=== PATIENT | female | born 1960 | race Caucasian/White ===

== ENCOUNTER 2023-06-10 01:38 | Observation (INO) | payer MEDICARE, SELFPAY ==
[2023-06-10] VITALS (119 sets, daily range): BP systolic 101–149; BP diastolic 60–108; PULSE 45–81; RESP 12–40; TEMP 36.4–36.9; O2SAT 20–99; BMI 22.8; BMI 25.2
--- NOTE | 2023-06-10 01:52 | ECG_ITS ---
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
--- NOTE | 2023-06-10 01:52 | XR_ITS ---
The [address] [address] Patient Name: EMERY JETT MRN: [id number] date: 1960 Sex: F Assigned Patient Location: ER Current Patient Location: ED.MAIN Accession/Order Number: [id number] Exam Date: 06/10/2023 02:10 Report Date: 06/10/2023 03:21 At the request of: CORA BROTHERS Procedure: XR chest 1V SINGLE VIEW CHEST: 06/10/2023 2:10 AM EST CLINICAL HISTORY:shortness of breath COMPARISONS: None. TECHNIQUE: Single frontal view of the chest, utilizing portable technique. Portable radiography should be considered a technically compromised study. Strongly consider dedicated PA and lateral chest radiographs, as clinically indicated. FINDINGS: LINES AND TUBES: External metallic densities from patient clothing project over the hemithoraces. CARDIAC SILHOUETTE: Within normal limits. MEDIASTINAL AND HILAR CONTOUR: Within normal limits. PULMONARY PARENCHYMA AND PLEURA: Clear lungs. No consolidation, edema, effusion, or pneumothorax. OSSEOUS STRUCTURES:Nothing significant. OTHER COMMENTS:None. XR/XR chest 1V IMPRESSION: No acute findings. This report was generated with voice recognition software. Effort has been made to ensure accuracy of this report, however, occasional wording errors may persist. Please contact our office with any questions. Electronically authenticated by: DELLA SEE Date: 06/10/2023 03:21
--- NOTE | 2023-06-10 01:58 | ED_ITS ---
HPI - SOB/Dyspnea General Chief Complaint: Shortness of Breath/Dyspnea Stated Complaint: sob Time Seen by Provider: 06/10/23 01:52 Source: patient Mode of arrival: ambulance Limitations: no limitations History of Present Illness HPI Narrative: Patient with cough that started yesterday. Tonight she felt more shortness of breath. She is also anxious. She did not take her Xanax. She admitted to chest congestion and cough that occasionally produces phlegm but is mostly dry. No fever or chills. No GI or symptoms. Related Data Home Medications Medication Instructions Recorded Confirmed alprazolam 1 mg tablet 1 mg PO BID 06/10/23 06/10/23 aspirin 81 mg tablet,delayed 81 mg PO DAILY 06/10/23 06/10/23 release atorvastatin 80 mg tablet 80 mg PO DAILY 06/10/23 06/10/23 buspirone 10 mg tablet 10 mg PO BID 06/10/23 06/10/23 carvedilol 6.25 mg tablet 6.25 mg PO BIDWM 06/10/23 06/10/23 clopidogrel 75 mg tablet 75 mg PO DAILY 06/10/23 06/10/23 cyclobenzaprine 10 mg tablet 10 mg PO BID 06/10/23 06/10/23 dapagliflozin propanediol 10 mg 10 mg PO DAILY 06/10/23 06/10/23 tablet (Farxiga) gabapentin 300 mg capsule 300 mg PO TID 06/10/23 06/10/23 trazodone 50 mg tablet 50 mg PO DAILY 06/10/23 06/10/23 Allergies Allergy/AdvReac Type Severity Reaction Status Date / Time No Known Drug Allergies Allergy Verified 06/10/23 01:43 [facility] Social History Smoking status: Light tobacco smoker Exam Narrative Exam Narrative: Nurses notes and vital signs reviewed and patient is not hypoxic. afebrile General: Well-appearing and in no apparent distress. Skin: Warm, dry, no pallor noted. Head: Normocephalic, atraumatic. Eye: Pupils are equal, round and EOMI. No scleral icterus. Ears, Nose, Mouth, and Throat: Oral mucosa is moist Cardiovascular: Regular Rate and Rhythm without murmur, gallop or rub. Respiratory: No accessory muscle use or respiratory distress. Occasional cough. Lungs are clear to auscultation, no wheezing, rales or rhonchi Musculoskeletal: normal ROM, no calf or popliteal tenderness, no lower extremity edema/swelling GI: Abdomen is soft, non-distended. Normal bowel sounds. No tenderness to palpation. No rebound, guarding, or rigidity noted. Neurological: A&O x4. No cranial nerve dysfunction observed. No truncal ataxia. Moves all extremities. Sensation intact. Psychiatric: Cooperative and interactive. Normal mood and affect. Constitutional Vital Signs, click to edit/add: Last Vital Signs Pulse 71 06/10/23 03:20 Resp 23 06/10/23 03:20 BP 109/82 06/10/23 03:00 Pulse Ox 96 06/10/23 04:05 O2 Del Method Room Air 06/10/23 04:05 Course Vital Signs Vital signs: Vital Signs Pulse Rate 81 06/10/23 01:40 Respiratory Rate 18 06/10/23 01:40 Blood Pressure 149/108 H 06/10/23 01:40 Pulse Oximetry 93 L 06/10/23 01:40 Oxygen Delivery Method Room Air 06/10/23 01:40 Pulse Rate 71 06/10/23 03:20 Respiratory Rate 23 06/10/23 03:20 Blood Pressure 109/82 06/10/23 03:00 Pulse Oximetry 96 06/10/23 04:05 Oxygen Delivery Method Room Air 06/10/23 04:05 MDM - SOB/Dyspnea MDM Narrative Medical decision making narrative: Patient was placed on front desk monitor and EKG obtained. Blood drawn and sent for evaluation. Chest x-ray obtained. She was given Ativan for her anxiety. She also received IV Solumedrol and a neb treatment with albuterol. No acute abnormal findings noted on CXR. Unremarkable CBC and BMP. Swabs for Covid and Influenza negative. Normal BNP. Troponin elevated at 83. Repeat troponin trending down. No ST elevation or depression. Likely bronchitis with hypoxia resulting in demand raising troponin. Case discussed with Audra Bang, telehospitalist, covering for Dr Debra ponce. Patient will be admitted to [facility] under Dr Richardson's care. Enzyme cycled with plan for echo and stress test - likely Sunday. Cardiology will be consulted. Lab Data Attestation: I reviewed the patient's lab results. Labs: Lab Results 06/10/23 06/10/23 06/10/23 Range/Units 02:00 02:11 03:47 WBC 7.9 (4.0-11.0) 10^3/uL RBC 4.67 (4.20-5.40) 10^6/uL Hgb 12.9 (12.0-16.0) g/dL Hct 41.8 (36.0-48.0) % MCV 89.5 (81.0-99.0) fL MCH 27.6 (26.7-34.0) pg MCHC 30.9 (29.9-35.2) g/dL RDW 14.8 (11.0-15.0) % Plt Count 299 (150-450) 10^3/uL MPV 10.4 (9.5-13.5) fL Neut % (Auto) 49.4 (43.0-75.0) % Lymph % (Auto) 37.5 (20.5-60.0) % [place] % (Auto) 6.4 (1.7-12.0) % Eos % (Auto) 5.9 (0.9-7.0) % Baso % (Auto) 0.5 (0.2-2.0) % Neut # (Auto) 3.9 (1.4-6.5) 10^3/uL Lymph # (Auto) 3.0 (1.2-3.8) 10^3/uL [place] # (Auto) 0.5 (0.3-0.8) 10^3/uL Eos # (Auto) 0.5 (0.0-0.7) 10^3/uL Baso # (Auto) 0.0 (0.0-0.1) 10^3/uL Abs Immat Gran (auto) 0.02 (0.00-0.03) 10^3/uL Imm/Tot Granulo (auto) 0.3 (0.0-0.5) % Sodium 135 L (136-145) mmol/L Potassium 4.3 (3.5-5.1) mmol/L Chloride 104 (98-107) mmol/L Carbon Dioxide 29.8 (21.0-32.0) mmol/L Anion Gap 5.5 BUN 18.0 (7.0-18.0) mg/dL Creatinine 1.19 H (0.55-1.02) mg/dL Est GFR ( Amer) 56 L (>=60) Est GFR (Non-Af Amer) 46 L (>=60) BUN/Creatinine Ratio 15.1 Glucose 231 H (74-106) mg/dL Calcium 9.0 (8.5-10.1) mg/dL Troponin I High Sens 83.0 H* 78.5 H* (4.0-51.3) pg/mL NT-Pro-B Natriuret Pep 608.0 (<=900.0) pg/mL Influenza Type A Ag Negative Influenza Type B Ag Negative SARS-CoV-2 Ag (CV2AG) Negative (NEGATIVE) Imaging Data Chest x-ray: Radiologist's impression: ITS Impressions Chest X-Ray 06/10/23 01:52 IMPRESSION: No acute findings. This report was generated with voice recognition software. Effort has been made to ensure accuracy of this report, however, occasional wording errors may persist. Please contact our office with any questions. Electronically authenticated by: DELLA SEE Date: 06/10/2023 03:21 ECG Data Attestation: I personally reviewed and interpreted this ECG as follows: Interpretation: EKG interpretation: Emergency Department physician interpretation. Normal sinus rhythm at 79bpm. Normal axis, normal intervals and non specific ST changes. No ST segment elevation or depression. Discharge Plan Discharge Chief Complaint: Shortness of Breath/Dyspnea Time of Disposition Decision: 04:31 Prescriptions / Home Meds: No Action cyclobenzaprine 10 mg tablet 10 mg PO BID atorvastatin 80 mg tablet 80 mg PO DAILY carvedilol 6.25 mg tablet 6.25 mg PO BIDWM alprazolam 1 mg tablet 1 mg PO BID clopidogrel 75 mg tablet 75 mg PO DAILY aspirin 81 mg tablet,delayed release (DR/EC) 81 mg PO DAILY buspirone 10 mg tablet 10 mg PO BID gabapentin 300 mg capsule 300 mg PO TID Farxiga 10 mg tablet 10 mg PO DAILY trazodone 50 mg tablet 50 mg PO DAILY
[2023-06-10 02:18] LABS: Basophils Percent Auto 0.5 % (0.2-2.0); Eosinophils Absolute Auto 0.5 10^3/uL (0.0-0.7); Eosinophils Percent Auto 5.9 % (0.9-7.0); Hematocrit 41.8 % (36.0-48.0); Hemoglobin 12.9 g/dL (12.0-16.0); Immature Granulocytes Abs Auto 0.02 10^3/uL (0.00-0.03); Immature Granulocytes Pct Auto 0.3 % (0.0-0.5); Lymphocytes Percent Auto 37.5 % (20.5-60.0); Mean Corpuscular HGB Conc 30.9 g/dL (29.9-35.2); Mean Corpuscular Hemoglobin 27.6 pg (26.7-34.0); Mean Corpuscular Volume 89.5 fL (81.0-99.0); Mean Platelet Volume 10.4 fL (9.5-13.5); Monocytes Absolute Auto 0.5 10^3/uL (0.3-0.8); Monocytes Percent Auto 6.4 % (1.7-12.0); Neutrophils Absolute Auto 3.9 10^3/uL (1.4-6.5); Neutrophils Percent Auto 49.4 % (43.0-75.0); Platelet Count 299 10^3/uL (150-450); Red Blood Count 4.67 10^6/uL (4.20-5.40); Red Cell Distribution Width 14.8 % (11.0-15.0); White Blood Count 7.9 10^3/uL (4.0-11.0)
[2023-06-10 02:29] LABS: Influenza Virus A Antigen Negative; Influenza Virus B Antigen Negative; Internal Control Within Normal Limits; SARS-CoV-2 Ag NEGATIVE (NEGATIVE)
[2023-06-10] MEDS: KETOROLAC TROMETHAMINE 30 MG/ML VIAL IVP (02:29)
[2023-06-10] MEDS: LORAZEPAM 0.5 MG TABLET PO (02:29)
[2023-06-10] MEDS: METHYLPREDNISOLONE SOD SUCC PF 125 MG/2 ML VIAL IVP (02:29)
[2023-06-10 02:41] LABS: Anion Gap 5.5; BUN Creatinine Ratio 15.1; Carbon Dioxide 29.8 mmol/L (21.0-32.0); Chloride 104 mmol/L (98-107); Estimated GFR (African America 56 (>=60); Estimated GFR (Non-African Ame 46 (>=60); Glucose 231 mg/dL (74-106); Potassium 4.3 mmol/L (3.5-5.1); Sodium 135 mmol/L (136-145)
[2023-06-10] MEDS: ALBUTEROL SULFATE 2.5 MG/3 ML VIAL NEB IH (02:42)
[2023-06-10 04:17] LABS: Troponin I High Sensitivity 78.5 pg/mL (4.0-51.3)
[2023-06-10 04:51] LABS: Adenovirus NOT DETECTED (NOT DETECTE); Bordetella parapertussis NOT DETECTED (NOT DETECTE); Coronavirus 229E NOT DETECTED (NOT DETECTE); Coronavirus HKU1 NOT DETECTED (NOT DETECTE); Coronavirus NL63 NOT DETECTED (NOT DETECTE); Coronavirus OC43 NOT DETECTED (NOT DETECTE); Human Metapneumovirus NOT DETECTED (NOT DETECTE); Human Rhinovirus/Enterovirus NOT DETECTED (NOT DETECTE); Influenza A NOT DETECTED (NOT DETECTE); Influenza B NOT DETECTED (NOT DETECTE); Mycoplasma pneumoniae NOT DETECTED (NOT DETECTE); Parainfluenza Virus 1 NOT DETECTED (NOT DETECTE); Parainfluenza Virus 2 NOT DETECTED (NOT DETECTE); Parainfluenza Virus 3 NOT DETECTED (NOT DETECTE); Parainfluenza Virus 4 NOT DETECTED (NOT DETECTE); Respiratory Syncytial Virus NOT DETECTED (NOT DETECTE); SARS-CoV-2 NOT DETECTED (NOT DETECTE)
[2023-06-10 05:06] LABS: Estimated Average Glucose 140 mg/dL; Glycohemoglobin A1C 6.5 % (4.5-6.2)
[2023-06-10 05:15] LABS: Chol HDL Ratio 2.6; Cholesterol 202 mg/dL (<=200); HDL Cholesterol 79 mg/dL (40-60); Magnesium 2.1 mg/dL (1.8-2.4); Thyroid Stimulating Hormone 7.623 uIU/mL (0.358-3.740); Triglycerides 214 mg/dL (<=150); VLDL CHOLESTEROL 42.8 mg/dL
[2023-06-10 07:14] LABS: Troponin I High Sensitivity 82.9 pg/mL (4.0-51.3)
[2023-06-10 07:41] LABS: Glucometer 170 mg/dL (74-106)
--- NOTE | 2023-06-10 08:27 | PM.HP ---
H&P: HPI History of Present Illness Chief complaint: SHORTNESS OF BREATH Narrative: patient is a 63-year-old female with past medical history of coronary artery disease status post percutaneous stent ?1 approximately two years ago,anxiety, hypertension. Patient states that she has been doing well and developed a cough yesterday that was dry and nature but felt short of breath when she was coughing so much. She denies any chest pain or sick contacts. She denies any fevers or chills. She notified EMS who found her hypoxic of eighty percent and provided her with some oxygen and brought her to the hospital. In the Emergency Room she was saturating greater than ninety percent on room air. Her CBC and CMP were within normal limits. She did have an elevated troponin of eighty. Normal proBNP. The elevated troponin was thought to be from her hypoxic episode as her EKG showed no acute changes. Patient was admitted to the hospitalist service for further management and treatment. This morning on admission exam she denies any chest pain or shortness of breath. She notes that she used to follow with [facility] cardiology but it is been several years since her myocardial infarction and stent and she has not followed with them recently. She sees Dr. Richardson as her primary care provider.she has been compliant with her medications and she says that the Emergency Room bed was uncomfortable so she is having some low back pain. Otherwise no other issues or concerns. Review of Systems ROS Narrative ROS: a complete review of systems were reviewed with patient and are positive as below or listed in History of Chief Complaint. General: no fever, chills, night sweats Head: no headache, trauma, visual changes, nausea or vomiting Skin: no reported rashes, itching or sores Eyes: no blurriness of vision Ears: no reported hearing loss, vertigo, earache, or tinnitus Throat: no sore throat, hoarseness, swelling of neck, or tongue pain Heart: no chest pain Lungs: no shortness of breath or dry cough GI: no diarrhea or vomiting/nausea Urinary: no urinary urgency, frequency or pain Neuro: no numbness or tingling HEM: no bleeding issues or bruising ENDO: no thyroid problems Psych: no anxiety or depression [facility]SH [facility] Medical History IBS (irritable bowel syndrome) ?K58.9 - Irritable bowel syndrome without diarrhea (ICD-10) Anxiety ?F41.9 - Anxiety disorder, unspecified (ICD-10) Heart attack ?I21.9 - Acute myocardial infarction, unspecified (ICD-10) Sciatic leg pain ?M54.30 - Sciatica, unspecified side (ICD-10) Herniated disc, cervical ?M50.20 - Other cervical disc displacement, unspecified cervical region (ICD-10) Surgical History History of appendectomy ?Z90.49 - Acquired absence of other specified parts of digestive tract (ICD-10) History of heart artery stent ?Z95.5 - Presence of coronary angioplasty implant and graft (ICD-10) Family History Other Family history of diabetes mellitus Family history of myocardial infarction Social History Within the past year, how often did you have a drink containing alcohol: monthly or less Smoking status: Light tobacco smoker Nicotine containing products detail: 1 pack/week Non-prescribed substance use: cannabis (any form) Non-prescribed substance use details: smokes marijuana, gummies Highest level of school completed/degree received: high school graduate Meds Home Medications and Allergies Home Medications Medication Instructions Recorded Confirmed Type alprazolam 1 mg tablet 1 mg PO BID 06/10/23 06/10/23 History aspirin 81 mg tablet,delayed 81 mg PO DAILY 06/10/23 06/10/23 History release atorvastatin 80 mg tablet 80 mg PO DAILY 06/10/23 06/10/23 History buspirone 10 mg tablet 10 mg PO BID 06/10/23 06/10/23 History carvedilol 6.25 mg tablet 6.25 mg PO BIDWM 06/10/23 06/10/23 History clopidogrel 75 mg tablet 75 mg PO DAILY 06/10/23 06/10/23 History cyclobenzaprine 10 mg tablet 10 mg PO BID 06/10/23 06/10/23 History dapagliflozin propanediol 10 mg 10 mg PO DAILY 06/10/23 06/10/23 History tablet (Farxiga) gabapentin 300 mg capsule 300 mg PO TID 06/10/23 06/10/23 History trazodone 50 mg tablet 50 mg PO DAILY 06/10/23 06/10/23 History Allergies Allergy/AdvReac Type Severity Reaction Status Date / Time No Known Drug Allergies Allergy Verified 06/10/23 01:43 Exam Narrative Exam Narrative: General: Patient is alert, and oriented to person, place and time with normal affect, proper hygiene Skin: no visible rashes, or ulcers Head: atraumatic, acephalic Eyes: PERRLA, no nystagmus present, conjunctiva clear, no scleral icterus Ears: normal Tympanic Membrane, normal gross auditory acuity Nose: symmetric, no discharge, no maxillary or frontal sinus tenderness Mouth/Throat: no erythema, exudate, or tonsillar enlargement, normal dentition Neck: no masses palpated, normal thyroid, no JVD or audible carotid bruits Heart: Normal rate and rhythm, no murmurs/rubs/gallops Lungs: no audible wheezes, crackles and normal breath sounds all lung esquivel Abdomen: Normal audible bowel sounds, no distension, No palpable masses, no organomegaly, no rebound/guarding/ or rigidity Musculoskeletal: muscle atrophy noted, ROM is limited due to being in hospital bed, no swelling bilateral lower extremities Vascular: Normal carotid, radial, femoral, posterior tibial, and dorsalis pedis pulses Lymph: no supraclavicular, axillary, or anterior/posterior cervical adenopathy Neuro: CN II-X grossly intact, normal sensation upper and lower extremities Constitutional Vital Signs, click to edit/add: Last Vital Signs Temp 97.6 F 06/10/23 04:34 Pulse 64 06/10/23 08:00 Resp 17 06/10/23 07:30 BP 116/73 06/10/23 06:30 Pulse Ox 98 06/10/23 07:39 O2 Del Method Room Air 06/10/23 07:39 Results Labs Labs: Short CBC 06/10/23 Range/Units 02:11 WBC 7.9 (4.0-11.0) 10^3/uL Hgb 12.9 (12.0-16.0) g/dL Hct 41.8 (36.0-48.0) % Plt Count 299 (150-450) 10^3/uL BMP 06/10/23 02:11 Sodium 135 L Potassium 4.3 Chloride 104 Carbon Dioxide 29.8 BUN 18.0 Creatinine 1.19 H Glucose 231 H Calcium 9.0 Assessment and Plan Assessment and Plan (1) Elevated troponin: Assessment and Plan: does have risk factors of CAD with prior stent, troponins trending down. No events on telemetry. EKG shows no Elevation or depression. Symptom free. Could be type 2 NSTEMI. continue lipitor high dose, aspirin and plavix. Lipids 202/81/79/214. Normal proBNP. Will check Echo, cardiology consult and possibly inpatient stress vs cath vs outpatient management based on their recommendations. (2) Acute dyspnea: Assessment and Plan: resolved. Negative viral work up. positive for THC, could be from that. added d-dimer (3) Anxiety: Assessment and Plan: continue home medications (4) Sciatic leg pain: Assessment and Plan: given dose of morphine. continue gabapentin (5) Hypertension: Assessment and Plan: continue coreg. Qualifiers: Hypertension type: primary hypertension Qualified Code(s): I10 - Essential (primary) hypertension Plan patient is a full code continue observation status, trend troponins, d dimer and echo, cards consult tomorrow.
[2023-06-10] MEDS: CYCLOBENZAPRINE HCL 10 MG TABLET PO ×2 (08:46→20:08)
[2023-06-10] MEDS: ATORVASTATIN CALCIUM 40 MG TABLET 80 MG PO (08:46)
[2023-06-10] MEDS: CLOPIDOGREL BISULFATE 75 MG TABLET PO (08:46)
[2023-06-10] MEDS: ALPRAZOLAM 1 MG TABLET PO ×2 (08:46→20:08)
[2023-06-10] MEDS: ASPIRIN 81 MG TABLET.DR PO (08:46)
[2023-06-10] MEDS: BUSPIRONE HCL 10 MG TABLET PO ×2 (08:46→20:08)
[2023-06-10] MEDS: CARVEDILOL 6.25 MG TABLET PO ×2 (08:47→16:27)
[2023-06-10] MEDS: CANAGLIFLOZIN 100 MG TABLET 300 MG PO (08:47)
[2023-06-10 10:06] LABS: Troponin I High Sensitivity 78.9 pg/mL (4.0-51.3)
[2023-06-10 10:14] LABS: Amphetamine Screen Urine NEGATIVE (NEGATIVE); Barbiturates Screen Urine NEGATIVE (NEGATIVE); Benzodiazepines Screen Urine POSITIVE (NEGATIVE); Buprenorphine Screen Urine NEGATIVE (NEGATIVE); Cannabinoid Screen Urine POSITIVE (NEGATIVE); Cocaine Screen Urine NEGATIVE (NEGATIVE); Methadone Screen Urine NEGATIVE (NEGATIVE); Methamphetamines Screen Urine NEGATIVE (NEGATIVE); Opiate Screen Urine NEGATIVE (NEGATIVE); Oxycodone Screen Urine NEGATIVE (NEGATIVE); Phencyclidine Screen Urine NEGATIVE (NEGATIVE); Tricyclic Antidepressant Urine POSITIVE (NEGATIVE)
[2023-06-10 11:24] LABS: Glucometer 221 mg/dL (74-106)
[2023-06-10] MEDS: INSULIN ASPART 300 UNIT/3 ML PEN SUBQ ×3 (11:25→21:54)
[2023-06-10] MEDS: GABAPENTIN 300 MG CAPSULE PO ×2 (13:01→21:53)
[2023-06-10 13:29] LABS: Troponin I High Sensitivity 72.2 pg/mL (4.0-51.3)
--- NOTE | 2023-06-10 13:35 | CA_ITS ---
Patient Name: EMERY JETT MR#: [id number] : 1960 Exam Date: 06/11/2023 Ordering Doctor: CAROLINE BAEZ . ECHOCARDIOGRAM REPORT PROCEDURE: CA ECHO DOPPLER COMPLETE INDICATIONS: elevated trop and sob COMPARISON: None. DESCRIPTION: COMPLETE ECHOCARDIOGRAM Real-time transthoracic echocardiography with 2D, M-mode, spectral and color flow Doppler performed. QUALITY: Technical quality was good. LEFT VENTRICLE: Normal chamber size. Mild concentric left ventricular hypertrophy. LV EF: Global left ventricular systolic function is normal. Visual estimation of left ventricular ejection fraction is 65%. No wall motion abnormalities. DIASTOLIC: Normal diastolic function. ATRIAL SEPTUM: Inadequately seen. LEFT ATRIUM: Mild dilatation. RIGHT ATRIUM: Normal chamber size. RIGHT VENTRICLE: Normal chamber size. Normal right ventricular systolic function. TRICUSPID VALVE: Normal mobility and thickness. No stenosis with trivial regurgitation. No evidence of pulmonary hypertension. RVSP 29mmHg MITRAL VALVE: Normal mobility and thickness. No evidence of mitral valve stenosis. Mild mitral annular calcification. Mild to moderate mitral regurgitation. AORTIC VALVE: Normal trileaflet appearance. Normal leaflet mobility. No evidence of aortic valve stenosis. No aortic regurgitation. AORTIC ROOT: Normal diameter and appearance. PULMONIC VALVE: Normal thickness and mobility. No stenosis. Trivial regurgitation. PERICARDIUM: Anterior free space: trivial effusion vs fat pad. IVC: Collapses with inspirations. Normal size. CONCLUSION: 1. Global left ventricular systolic function is normal: visual estimation of left ventricular ejection fraction is 65% 2. Normal right ventricular size and function 3. Normal diastolic function 4. Mildly increased left ventricular wall thickness 5. Mild left atrial dilatation 6. Mild to moderate mitral regurgitation 7. Anterior free space: trivial effusion vs fat pad. Adult Echocardiography Procedure Report Left Ventricle LVEDD (3.7 - 5.6 cm): 4.52 cm LVESD (2.2 - 4.0 cm): 3.14 cm LVIVS thickness (0.6 - 1.2 cm): 1.06 cm LVPW thickness (0.5 - 1.0 cm): 1.08 cm e': 0.10 m/s E - e': 7.32 LVOT Max Gradient: 3.30 mm[Hg] LVOT Area (cm2): 0.91 m/s Peak Velocity (LVOT): 0.91 m/s Mean Velocity (LVOT): 0.58 m/s LVOT Diameter 1.91 cm Left Ventricular Ejection Fraction: 69.75 % Left Atrium LA Volume Index (2D A2C): 40.14 ml/m2 Left Atrium Systolic Dimension: 3.63 cm Mitral Valve MV E to A Ratio: 1.10 Mitral Valve A-Wave Peak Velocity: 0.70 m/s Mitral Valve E-Wave Peak Velocity: 0.77 m/s Right Ventricle RV Internal Diastolic Dimension: 3.35 cm Aorta AO Root Diam: 2.88 cm Ascending Ao Diam: 2.42 cm Aortic Valve AoV Area (Peak Russell): 1.73 cm2, 1.73 cm2 AoV Area (VTI): 1.68 cm2, 1.68 cm2 Peak Velocity(Antegrade Flow): 1.50 m/s Peak Gradient(Antegrade Flow): 8.97 mm[Hg] Mean Velocity(Antegrade Flow): 0.99 m/s Mean Gradient(Antegrade Flow): 4.53 mm[Hg] Velocity Time Integral: 36.81 cm Tricuspid Valve Peak Velocity (Regurgitant Flow): 2.26 m/s, 2.58 m/s Pulmonic Valve Mean Gradient: 2.64 mm[Hg] Mean Velocity: 0.76 m/s Peak Velocity: 1.13 m/s, 0.99 m/s Peak Gradient: 3.95 mm[Hg], 5.09 mm[Hg] Right Atrium Right Atrium Systolic Pressure: 44.27 ml, 44.27 ml Dictated by: Gasper Avendano M.D. on 06/11/2023 at 14:41 Approved by: Gasper Avendano M.D. on 06/11/2023 at 14:46
--- NOTE | 2023-06-10 13:35 | NM_ITS ---
Patient Name: EMERY JETT MR#: [id number] : 1960 Exam Date: 06/11/2023 Ordering Doctor: Baylee Hernández . RADIOLOGY REPORT PROCEDURE: NM ANDRE PERF SPECT REST STR COMPARISON: None. INDICATIONS: elevated troponins TECHNIQUE: Exam Description: Stress/Rest one day protocol gated SPECT Rest Imagin.0 mCi Tc-99m Cardiolite IV on 06/11/2022 Stress Imaging 32.0 mCi Tc-99m Cardiolite IV on 06/11/2022 Exercise Protocol: 0.4 mg Lexiscan given IV Heart Rate (bpm): Rest: 52 Max: 71 PMHR: 44 Blood Pressure: Rest: 158/82 Max: 158/82 Symptoms: Rest and peak stress ECG findings were normal and the exercise portion of the study was normal per attending physician Dr. Avendano . For more details please see separate cardiac stress test report. FINDINGS: QUALITY OF STUDY: Good. PERFUSION DEFECT: None. LOCATION: N/A SIZE: N/A. SEVERITY: N/A. TYPE: N/A. WALL MOTION: Normal. LV SIZE: Normal. 53 mL. TID / TCD: None; 0.6 LVEF: Normal. Calculated EF 79%. SUMMARY: Myocardial perfusion imaging study is NORMAL. CONCLUSION: 1. No reversible ischemia 2. Normal exercise test Dictated by: Garrick Coates MD on 06/11/2023 at 14:17 Approved by: Garrick Coates MD on 06/11/2023 at 14:19
[2023-06-10] MEDS: MORPHINE SULFATE 2 MG/ML SYRINGE 1 MG IV (13:44)
[2023-06-10 15:41] LABS: D Dimer 0.24 mg/L FEU (<=0.59)
[2023-06-10 15:43] LABS: Glucometer 233 mg/dL (74-106)
[2023-06-10 15:52] LABS: Troponin I High Sensitivity 65.2 pg/mL (4.0-51.3)
[2023-06-10 21:41] LABS: Glucometer 225 mg/dL (74-106)
[2023-06-10] MEDS: TRAZODONE HCL 50 MG TABLET PO (21:53)
[2023-06-11] VITALS (10 sets, daily range): BP systolic 130; BP diastolic 49; PULSE 46–64; RESP 14–16; TEMP 36.5; O2SAT 93–96
--- NOTE | 2023-06-11 | PCN_ITS ---
CARDIAC STRESS TEST Requesting Physician: Procedure Date: 06/11/2023 DIAGNOSIS: Shortness of breath, elevated troponin. METHODS: After risks, benefits and alternatives were explained, written informed consent was obtained. The patient was brought to the Stress Lab in a resting and fasting state. She underwent a Lexiscan pharmacological stress test. Technetium was injected per protocol. She was transferred to the Nuclear Lab for imaging. There were no complications. STRESS TEST INFORMATION: Lexiscan 0.4 mg was infused intravenously. Resting heart rate was 51 beats per minute, increasing to a maximum of 71 beats per minute. Resting blood pressure was 158/82, decreasing to a minimum of 122/82. The patient had no significant symptoms. ELECTROCARDIOGRAPHY: Rest EKG: This showed sinus rhythm, sinus bradycardia at 51 beats per minute. Non-specific ST-T wave changes. During Infusion and Recovery: The patient?s rhythm converted to atrial fibrillation versus accelerated junctional rhythm. No Q-waves are seen. No significant ST-T wave changes noted. Infrequent premature ventricular contractions seen. FINAL IMPRESSIONS: 1. No ischemic EKG changes seen on Lexiscan pharmacological stress test. 2. Atrial fibrillation versus accelerated junctional rhythm seen post Lexiscan infusion. 3. Nuclear images are to be read, interpreted and reported in a separate dictation. [facility]
[2023-06-11 05:42] LABS: Basophils Percent Auto 0.1 % (0.2-2.0); Hematocrit 37.7 % (36.0-48.0); Hemoglobin 11.8 g/dL (12.0-16.0); Immature Granulocytes Abs Auto 0.05 10^3/uL (0.00-0.03); Immature Granulocytes Pct Auto 0.4 % (0.0-0.5); Lymphocytes Absolute Auto 1.5 10^3/uL (1.2-3.8); Lymphocytes Percent Auto 11.3 % (20.5-60.0); Mean Corpuscular HGB Conc 31.3 g/dL (29.9-35.2); Mean Corpuscular Hemoglobin 27.4 pg (26.7-34.0); Mean Corpuscular Volume 87.7 fL (81.0-99.0); Mean Platelet Volume 10.5 fL (9.5-13.5); Monocytes Absolute Auto 0.6 10^3/uL (0.3-0.8); Neutrophils Absolute Auto 10.7 10^3/uL (1.4-6.5); Neutrophils Percent Auto 83.2 % (43.0-75.0); Platelet Count 286 10^3/uL (150-450); Red Cell Distribution Width 15.2 % (11.0-15.0); White Blood Count 12.8 10^3/uL (4.0-11.0)
[2023-06-11 06:03] LABS: Alanine Aminotransferase 54 U/L (14-59); Albumin Globulin Ratio 0.9; Albumin Level 3.1 g/dL (3.4-5.0); Alkaline Phosphatase 81 U/L (46-116); Anion Gap 8.3; Aspartate Amino Transferase 37 U/L (15-37); BUN Creatinine Ratio 23.7; Bilirubin Total 0.3 mg/dL (0.2-1.0); Calcium 9.1 mg/dL (8.5-10.1); Carbon Dioxide 29.4 mmol/L (21.0-32.0); Chloride 102 mmol/L (98-107); Estimated GFR (African America >60 (>=60); Estimated GFR (Non-African Ame 58 (>=60); Globulin 3.6 g/dL; Glucose 130 mg/dL (74-106); Potassium 4.7 mmol/L (3.5-5.1); Sodium 135 mmol/L (136-145); Total Protein 6.7 g/dL (6.4-8.2)
[2023-06-11 07:14] LABS: Troponin I High Sensitivity 58.2 pg/mL (4.0-51.3)
--- NOTE | 2023-06-11 08:08 | P.PN_ITS ---
Progress Note: Subjective Subjective Interval history: Patient presented to the emergency room with increasing shortness of breath. Cardiac markers were elevated. They have been trending down since that admission. Patient feels back to her normal self this morning. Exam Constitutional Vital Signs, click to edit/add: Last Vital Signs Temp 97.7 F 06/11/23 03:00 Pulse 63 06/11/23 07:53 Resp 14 06/11/23 04:00 BP 130/49 06/11/23 03:00 Pulse Ox 93 L 06/11/23 03:00 O2 Del Method Room Air 06/11/23 03:00 Documenting provider has reviewed patient's vital signs: yes Common normals: no apparent distress Chest Common normals: inspection of chest normal Respiratory Common normals: normal respiratory effort Cardio Common normals: regular rate and regular rhythm GI Common normals: Normal to inspection, nondistended, normoactive bowel sounds present Extremity Common normals: normal to inspection Neuro Common normals: oriented x3 and CN's II-XII intact bilaterally Progress Note: Objective Labs Labs: Short CBC 06/11/23 Range/Units 05:28 WBC 12.8 H (4.0-11.0) 10^3/uL Hgb 11.8 L (12.0-16.0) g/dL Hct 37.7 (36.0-48.0) % Plt Count 286 (150-450) 10^3/uL BMP 06/11/23 05:28 Sodium 135 L Potassium 4.7 Chloride 102 Carbon Dioxide 29.4 BUN 23.0 H Creatinine 0.97 Glucose 130 H Calcium 9.1 Liver Function 06/11/23 Range/Units 05:28 Total Bilirubin 0.3 (0.2-1.0) mg/dL AST 37 (15-37) U/L ALT 54 (14-59) U/L Alkaline Phosphatase 81 (46-116) U/L Albumin 3.1 L (3.4-5.0) g/dL Progress Note: A&P Assessment and Plan (1) Elevated troponin: (2) Acute dyspnea: (3) Anxiety: (4) Sciatic leg pain: (5) Hypertension: Qualifiers: Hypertension type: primary hypertension Qualified Code(s): I10 - Essential (primary) hypertension Plan Dyspnea possibly secondary to myocardial ischemia with significantly elevated troponin on admission-improving this morning,-plan is to get stress test this morning. Consult to cardiology. Patient feels back to her normal self. Has been taking her medications consistently. At this point if she passes her stress test and no further intervention by cardiology she will be discharged home in improving condition. Medications see list. Follow-up with me in the office later this week Borderline diabetes mellitus-discussed with patient need for low carbohydrate diet New onset hypothyroidism-start patient on levothyroxine will follow levels as an outpatient History of coronary artery disease-see plan as outlined above Uncontrolled hypertension on admission but improved currently. Will monitor closely as an outpatient Maintain patient is observational status-greater than 50% chance likely discharge later today for either home or heart cath
[2023-06-11] MEDS: REGADENOSON 0.4 MG/5 ML SYRINGE IV (10:58)
[2023-06-11] MEDS: CLOPIDOGREL BISULFATE 75 MG TABLET PO (11:08)
[2023-06-11] MEDS: CANAGLIFLOZIN 100 MG TABLET 300 MG PO (11:08)
[2023-06-11] MEDS: SENNOSIDES 8.6 MG TABLET PO (11:08)
[2023-06-11] MEDS: LEVOTHYROXINE SODIUM 75 MCG TABLET PO (11:09)
[2023-06-11] MEDS: CARVEDILOL 6.25 MG TABLET PO (11:09)
[2023-06-11] MEDS: ATORVASTATIN CALCIUM 40 MG TABLET 80 MG PO (11:09)
[2023-06-11] MEDS: GABAPENTIN 300 MG CAPSULE PO ×2 (11:09→13:51)
[2023-06-11] MEDS: ALPRAZOLAM 1 MG TABLET PO (11:10)
[2023-06-11] MEDS: ASPIRIN 81 MG TABLET.DR PO (11:10)
[2023-06-11] MEDS: BUSPIRONE HCL 10 MG TABLET PO (11:10)
[2023-06-11] MEDS: CYCLOBENZAPRINE HCL 10 MG TABLET PO (11:10)
[2023-06-11 12:00] LABS: Glucometer 181 mg/dL (74-106)
--- NOTE | 2023-06-11 12:12 | SWNOTE1 ---
SW stopped in to speak with pt in regards to her living situation. Pt does have her own apartment. She has been feeling well. SW let pt know that she should look in to home delivery for groceries. pt is not home bound for meals on wheels. Pt walks to and from grocery store. Pt has a new cell phone and she will look into delivery for groceries. Pt has her son and some friends who help as needed as well.
--- NOTE | 2023-06-11 12:39 | CM.NOTE ---
Medicare Outpatient Observation Notice discussed with pt, pt verbalizes understanding and signs paper. Original given to pt and copy placed on pt's chart.
--- NOTE | 2023-06-11 12:45 | PM.CACN ---
History of Present Illness History of Present Illness Consult date: 06/11/23 Requesting physician: Charlie Richardson Chief complaint: SHORTNESS OF BREATH Narrative: 63 yo with a h/o CAD, prior PCI/CONSUELO to LAD (10/2021) presented with shortness of breath and a cough. Thought she could have a 'pneumonia'. No chest pain. Denies orthopnea, PND or leg swelling. No history of AF, or irregular heart rhythms. EMS apparently documented O2 in the 80s and she was given O2; >90% in ER. Currently, she feels improved and has had normal saturations. Review of Systems ROS Status of ROS 10 or more systems reviewed and unremarkable except as noted in history and below Constitutional Reports: fatigue Respiratory Reports: shortness of breath and cough Musculoskeletal Reports: back pain PFSH PFSH Medical History IBS (irritable bowel syndrome) ?K58.9 - Irritable bowel syndrome without diarrhea (ICD-10) Anxiety ?F41.9 - Anxiety disorder, unspecified (ICD-10) Heart attack ?I21.9 - Acute myocardial infarction, unspecified (ICD-10) Sciatic leg pain ?M54.30 - Sciatica, unspecified side (ICD-10) Herniated disc, cervical ?M50.20 - Other cervical disc displacement, unspecified cervical region (ICD-10) Surgical History History of appendectomy ?Z90.49 - Acquired absence of other specified parts of digestive tract (ICD-10) History of heart artery stent ?Z95.5 - Presence of coronary angioplasty implant and graft (ICD-10) Family History Other Family history of diabetes mellitus Family history of myocardial infarction Social History Within the past year, how often did you have a drink containing alcohol: monthly or less Smoking status: Light tobacco smoker Nicotine containing products detail: 1 pack/week Non-prescribed substance use: cannabis (any form) Non-prescribed substance use details: smokes marijuana, gummies Highest level of school completed/degree received: high school graduate Meds Home Medications and Allergies Home Medications Medication Instructions Recorded Confirmed Type alprazolam 1 mg tablet 1 mg PO BID 06/10/23 06/10/23 History aspirin 81 mg tablet,delayed 81 mg PO DAILY 06/10/23 06/10/23 History release atorvastatin 80 mg tablet 80 mg PO DAILY 06/10/23 06/10/23 History buspirone 10 mg tablet 10 mg PO BID 06/10/23 06/10/23 History carvedilol 6.25 mg tablet 6.25 mg PO BIDWM 06/10/23 06/10/23 History clopidogrel 75 mg tablet 75 mg PO DAILY 06/10/23 06/10/23 History cyclobenzaprine 10 mg tablet 10 mg PO BID 06/10/23 06/10/23 History dapagliflozin propanediol 10 mg 10 mg PO DAILY 06/10/23 06/10/23 History tablet (Farxiga) gabapentin 300 mg capsule 300 mg PO TID 06/10/23 06/10/23 History trazodone 50 mg tablet 50 mg PO DAILY 06/10/23 06/10/23 History levothyroxine 75 mcg tablet 75 mcg PO ACB #30 tabs 06/11/23 Rx Allergies Allergy/AdvReac Type Severity Reaction Status Date / Time No Known Drug Allergies Allergy Verified 06/10/23 01:43 Exam Constitutional Vital Signs, click to edit/add: Last Vital Signs Temp 97.7 F 06/11/23 03:00 Pulse 63 06/11/23 12:00 Resp 14 06/11/23 12:00 BP 130/49 06/11/23 03:00 Pulse Ox 96 06/11/23 12:00 O2 Del Method Room Air 06/11/23 11:25 Documenting provider has reviewed patient's vital signs: yes Common normals: no apparent distress, average body habitus, oriented x3, alert and well nourished General appearance: cooperative, comfortable and well developed Orientation/consciousness: Yes awake, Yes oriented to person, Yes oriented to place and Yes oriented to time HENMT Common normals: normocephalic and head/scalp atraumatic Head and scalp: normal to inspection and normocephalic Face and sinus: normal facial exam Nose: external nose normal Eye Common normals: PERRL General eye: normal appearance of both eyes Visual acuity: acuity normal Neck & C-Spine Common normals: full ROM General: normal visual inspection Chest Common normals: inspection of chest normal Respiratory Common normals: normal respiratory effort Effort & inspection: able to speak in complete sentences Auscultation: clear to auscultation bilaterally Cardio Common normals: no JVD, regular rate, regular rhythm, S1 normal heart sound, S2 normal heart sound, no gallops, no clicks, no murmurs and no rub Rate: regular rate Rhythm: regular rhythm GI Common normals: Normal to inspection, nondistended, normoactive bowel sounds present Extremity Common normals: normal to inspection Neuro Common normals: oriented x3 Sensorium/orientation: awake and alert Results Labs and Meds Lab results: Cardiac Enzymes 06/11/23 Range/Units 05:28 AST 37 (15-37) U/L CBC 06/11/23 Range/Units 05:28 WBC 12.8 H (4.0-11.0) 10^3/uL RBC 4.30 (4.20-5.40) 10^6/uL Hgb 11.8 L (12.0-16.0) g/dL Hct 37.7 (36.0-48.0) % Plt Count 286 (150-450) 10^3/uL Neut # (Auto) 10.7 H (1.4-6.5) 10^3/uL Lymph # (Auto) 1.5 (1.2-3.8) 10^3/uL [place] # (Auto) 0.6 (0.3-0.8) 10^3/uL Eos # (Auto) 0.0 (0.0-0.7) 10^3/uL Baso # (Auto) 0.0 (0.0-0.1) 10^3/uL Comprehensive Metabolic Panel 06/11/23 Range/Units 05:28 Sodium 135 L (136-145) mmol/L Potassium 4.7 (3.5-5.1) mmol/L Chloride 102 (98-107) mmol/L Carbon Dioxide 29.4 (21.0-32.0) mmol/L BUN 23.0 H (7.0-18.0) mg/dL Creatinine 0.97 (0.55-1.02) mg/dL Glucose 130 H (74-106) mg/dL Calcium 9.1 (8.5-10.1) mg/dL AST 37 (15-37) U/L ALT 54 (14-59) U/L Alkaline Phosphatase 81 (46-116) U/L Total Protein 6.7 (6.4-8.2) g/dL Albumin 3.1 L (3.4-5.0) g/dL Intake and Output 06/10/23 06/11/23 06/11/23 23:59 07:59 15:59 Intake Total 240 / 680 200 / 680 Balance 240 / 530 200 / 530 Intake: Oral 240 / 680 200 / 680 Other: # Voids 2 Imaging and Cardiology Echo: pending EKG Interpretation EKG: sinus rhythm (Possible accelerated junctional rhythm) Assessment and Plan Assessment and Plan (1) Elevated troponin: (2) Acute dyspnea: (3) Anxiety: (4) Sciatic leg pain: (5) Hypertension: Qualifiers: Hypertension type: primary hypertension Qualified Code(s): I10 - Essential (primary) hypertension Plan The patient's Troponin elevation is likely related to supply-demand mismatch and does not represent an acute coronary syndrome; she complains of a cough, SOB and her WBCs are elevated 1. Routine labs: consider CRP and Procalcitonin to corroborate infection/inflammatory conditions 2. Await results of nuclear stress test: if non ischemic, would be reasonable to D/C home from a cardiac standpoint and have her follow up as an outpatient 3. if ischemic, or EF% reduced/new wall motion abnormalities on echocardiogram, will need to be transferred to [facility] for coronary angiography 4. treat non cardiac comorbidities as clinically appropriate 5. Continue GDMT for CAD including DAPT, statin, BBlocker and an ADRIA-I/ARB 6. Recommend a 30-day event monitor at discharge given suspicion of supraventricular arrhythmias on EKG and post-Lexiscan stress test Thank you for the consult. Please feel free to call with questions. Gasper Avendano MD [facility] Cardiovascular Medicine
--- NOTE | 2023-06-11 14:35 | SWNOTE1 ---
Pt was in need of ride home. SW called and set up trips. Trips will be about 4:00, SW let nursing know.
--- NOTE | 2023-06-12 16:03 | CM.DCFOLLOWU ---
Fast busy signal attempted x2
--- NOTE | 2023-06-13 14:51 | CM.DCFOLLOWU ---
2nd attempt. No answer
--- NOTE | 2023-06-14 15:45 | CM.DCFOLLOWU ---
3rd attempt. No answer
== END 2023-06-11 15:54 | disposition home or self-care (01) ==
LOC: ER 04:32 → ICU 07:30
PROVIDERS: Family Medicine; Registered Nurse; Admitting Provider Family Medicine; Emergency Provider Emergency Medicine; PCP Family Medicine; Visit Provider Family Medicine
DX: R06.00 Dyspnea, unspecified (principal); R79.89 Other specified abnormal findings of blood chemistry; R73.03 Prediabetes; E03.9 Hypothyroidism, unspecified; F41.9 Anxiety disorder, unspecified; I10 Essential (primary) hypertension; M54.32 Sciatica, left side; I25.10 Atherosclerotic heart disease of native coronary artery without angina pectoris; K58.9 Irritable bowel syndrome, unspecified; I25.2 Old myocardial infarction; F17.210 Nicotine dependence, cigarettes, uncomplicated; F12.90 Cannabis use, unspecified, uncomplicated; Z20.822 Contact with and (suspected) exposure to COVID-19; Z95.5 Presence of coronary angioplasty implant and graft; Z90.49 Acquired absence of other specified parts of digestive tract; Z79.899 Other long term (current) drug therapy; Z79.82 Long term (current) use of aspirin
CPT/HCPCS: 0202U; 36415; 71045; 78452; 80048; 80053; 80061; 80307; 82948; 83036; 83735; 83880; 84443; 84484; 85025; 85378; 87804; 87811; 93005; 93017; 93306; 94640; 94761; 96375; 99285; A9500; G0378; J1885; J2270; J2785; J2930

== ENCOUNTER 2023-06-29 03:39 | Emergency (ER) | payer MEDICARE, SELFPAY ==
[2023-06-29] VITALS (24 sets, daily range): BP systolic 105–181; BP diastolic 75–103; PULSE 56–62; RESP 14–30; TEMP 36.4; O2SAT 93–99; BMI 23.5
--- NOTE | 2023-06-29 03:48 | ECG_ITS ---
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
--- NOTE | 2023-06-29 04:05 | ED.GENADUL1 ---
HPI - General Adult General Chief complaint: Back Pain/Injury Stated complaint: GENERAL PAIN Time Seen by Provider: 06/29/23 03:52 Source: patient and other Source information: ems Mode of arrival: ambulance History of Present Illness HPI narrative: This 63-year-old female with a history of bilateral sciatica, HELEN, HTN, hyperlipidemia and chronic low back pain is brought to the emergency department by EMS from home. She complains of pain all over . She states that she has severe low back pain and cannot walk due to numbness in her feet. She also has chest pain/heaviness without radiation into her back or jaw. She states that the pain started when she woke up. She denies any shortness of breath. She does smoke but has decreased the amount that she smokes. She states she was admitted here recently and there was concern that she had something wrong with one of the valves in her heart. She had elevated troponins after and episode of hypoxia and was admitted, had a stress test and echocardiogram and cardiology consult. She has not had any fever or cough. She denies any dizziness or syncope. She has no abdominal pain. She has not had any loss of bowel or bladder control. She sees Dr. Richardson and states she is on gabapentin, anxiety medications and ibuprofen but cannot take the ibuprofen due to the fact that she has had a bleeding ulcer in the past. She is very irritable on arrival because she states that the paramedics that brought her to the emergency department treated her poorly, made her walk and did an EKG on her despite the fact that it is cold outside and she could catch pneumonia. She is demanding of something for pain and something for her anxiety. I reviewed her [facility] report and she gets monthly Rx for gabapentin and xanax. Related Data Home Medications Medication Instructions Recorded Confirmed alprazolam 1 mg tablet 1 mg PO BID 06/10/23 06/29/23 aspirin 81 mg tablet,delayed 81 mg PO DAILY 06/10/23 06/29/23 release atorvastatin 80 mg tablet 80 mg PO DAILY 06/10/23 06/29/23 buspirone 10 mg tablet 10 mg PO BID 06/10/23 06/29/23 carvedilol 6.25 mg tablet 6.25 mg PO BIDWM 06/10/23 06/29/23 clopidogrel 75 mg tablet 75 mg PO DAILY 06/10/23 06/29/23 cyclobenzaprine 10 mg tablet 10 mg PO BID 06/10/23 06/29/23 dapagliflozin propanediol 10 mg 10 mg PO DAILY 06/10/23 06/29/23 tablet (Farxiga) gabapentin 300 mg capsule 300 mg PO TID 06/10/23 06/29/23 trazodone 50 mg tablet 50 mg PO DAILY 06/10/23 06/29/23 albuterol sulfate 90 mcg/actuation inhalation 06/29/23 aerosol inhaler pantoprazole 40 mg tablet,delayed mg PO 06/29/23 release Previous Rx's Medication Instructions Recorded levothyroxine 75 mcg tablet 75 mcg PO ACB #30 tabs 06/11/23 Allergies Allergy/AdvReac Type Severity Reaction Status Date / Time No Known Drug Allergies Allergy Verified 06/29/23 03:50 Review of Systems ROS Status of ROS 10 or more systems reviewed and unremarkable except as noted in history and below PFSH PFS Medical History IBS (irritable bowel syndrome) ?K58.9 - Irritable bowel syndrome without diarrhea (ICD-10) Anxiety ?F41.9 - Anxiety disorder, unspecified (ICD-10) Heart attack ?I21.9 - Acute myocardial infarction, unspecified (ICD-10) Sciatic leg pain ?M54.30 - Sciatica, unspecified side (ICD-10) Herniated disc, cervical ?M50.20 - Other cervical disc displacement, unspecified cervical region (ICD-10) Surgical History History of appendectomy ?Z90.49 - Acquired absence of other specified parts of digestive tract (ICD-10) History of heart artery stent ?Z95.5 - Presence of coronary angioplasty implant and graft (ICD-10) Family History Other Family history of diabetes mellitus Family history of myocardial infarction Social History Within the past year, how often did you have a drink containing alcohol: monthly or less Smoking status: Current every day smoker Nicotine containing products detail: 1 pack/week Non-prescribed substance use: cannabis (any form) Non-prescribed substance use details: smokes marijuana, gummies Highest level of school completed/degree received: high school graduate Exam Narrative Exam Narrative: Nurses note and vital signs reviewed and patient is not hypoxic. Blood pressure is noted to be elevated at 181/103 General: Poorly kempt adult female, no resp distress, she is yelling upon arrival Skin: Warm, dry, no pallor noted. There is no rash noted. Head: Normocephalic, atraumatic Eye: Normal conjunctiva, no drainage, EOMI. PERRL. Vision is grossly intact Ears, Nose, Mouth, and Throat: oral mucosa is moist. Nares patent. Mouth without vesicles. Neck: No JVD Cardiovascular: Regular Rate and Rhythm S1S2, no murmurs, rubs or gallops Respiratory: Patient is in no distress, no accessory muscle use, lungs are clear to auscultation, no wheezing, rales or rhonchi Back: non-tender, no CVA tenderness bilaterally to percussion.Healed lumbar incision GI: Normal bowel sounds, no tenderness to palpation, no masses appreciated. No rebound, guarding, or rigidity noted. Musculoskeletal: The patient has no evidence of calf tenderness, no pitting edema, symmetrical pulses noted bilaterally Neurological: A&O x4, normal speech, no saddle anesthesia, lower extremity push/pulls are intact with normal strength Psychiatric: Cooperative, anxious, tearful Constitutional Vital Signs, click to edit/add: Last Vital Signs Temp 97.5 F L 06/29/23 03:40 Pulse 58 L 06/29/23 06:00 Resp 17 06/29/23 06:00 BP 129/90 06/29/23 06:00 Pulse Ox 95 06/29/23 06:02 O2 Del Method Nasal Cannula 06/29/23 06:02 O2 Flow Rate 2 06/29/23 06:02 Course Vital Signs Vital signs: Vital Signs Temperature 97.5 F L 06/29/23 03:40 Pulse Rate 60 06/29/23 03:40 Respiratory Rate 22 06/29/23 03:40 Blood Pressure 181/103 H 06/29/23 03:40 Pulse Oximetry 98 06/29/23 03:40 Oxygen Delivery Method Room Air 06/29/23 03:40 Temperature 97.5 F L 06/29/23 03:40 Pulse Rate 58 L 06/29/23 06:00 Respiratory Rate 17 06/29/23 06:00 Blood Pressure 129/90 06/29/23 06:00 Pulse Oximetry 95 06/29/23 06:02 Oxygen Delivery Method Nasal Cannula 06/29/23 06:02 Oxygen Delivery Flow Rate 2 06/29/23 06:02 Medical Decision Making MDM Narrative Medical decision making narrative: This 63-year-old female with a history of tobacco use, hypertension, hyperlipidemia and coronary artery disease as well as chronic low back pain and sciatica is brought to the emergency department from home. He is very anxious and tearful stating that she can't walk due to severe pain in her feet. She also complains of nonradiating chest pain that started when she woke up. She has anxiety and is treated with Xanax for anxiety and gabapentin for pain. She does have one coronary stent that was placed approximately one and half years ago at [facility]. She was admitted here last month and had mildly elevated troponins that trended down and she was seen by cardiology had an echocardiogram and stress test and was discharged home. She states she has followed up once with Dr. Avendano in his office. In emergency department an EKG was performed that shows T-wave inversion that is diffuse on her EKG with possible anterolateral ischemia and possible inferior ischemia. There is no ST segment elevation. I compared this to previous EKGs and this is more pronounced than it has been in the past. She did have some mild T-wave inversion in the past but not to this degree. She was medicated with Xanax and Percocet for pain and anxiety and reevaluation is feeling better. Routine labs are reviewed. She has a normal white count and hemoglobin. Electrolytes are normal. Her troponin is elevated at 557. She was reevaluated and is now feeling much better but has occasional episodes of nonradiating chest pain. Her blood pressure was elevated at arrival at 181/103 but is now 131/91. She will be medicated with 324 mg aspirin, 4mg IV morphine and IV heparin. Repeat EKG is unchanged with an undetermined rhythm that is similar to previous rhythm with T-wave inversion in leads one to minimally and 3 aVF and V2 V3 V4 and V5 with no acute ST segment elevation. A call has been placed to [facility] cardiology. Case was discussed with Dr White who agrees with management, requests NPO status and will see the patient in consult. Case also discussed with Dr Amaya, hospitalist who has agreed to accept the patient. Medical Records Medical records reviewed: Yes I reviewed the patient's medical records Medical records narrative: Patient was admitted on 06/11/2023 and had a stress test and echocardiograms and was seen by cardiology conclusion of the echocardiogram was Global left cyst ventricular systolic function is normal with ejection fraction of 65 percent, normal right ventricular size and function, normal diastolic function mildly increased left ventricular wall thickness mild left atrial dilatation mother moderate mitral regurgitation. The perfusion stress test showed no reversible ischemia and a normal exercise stress test She had one stent approx 2020 at [facility]. She is on plavix. Lab Data Lab results reviewed: Yes I reviewed the patient's lab results Labs: Lab Results 06/29/23 06/29/23 Range/Units 04:20 04:56 WBC 10.8 (4.0-11.0) 10^3/uL RBC 4.47 (4.20-5.40) 10^6/uL Hgb 12.3 (12.0-16.0) g/dL Hct 41.4 (36.0-48.0) % MCV 92.6 (81.0-99.0) fL MCH 27.5 (26.7-34.0) pg MCHC 29.7 L (29.9-35.2) g/dL RDW 15.1 H (11.0-15.0) % Plt Count 238 (150-450) 10^3/uL MPV 11.2 (9.5-13.5) fL Neut % (Auto) 62.2 (43.0-75.0) % Lymph % (Auto) 25.7 (20.5-60.0) % [place] % (Auto) 8.0 (1.7-12.0) % Eos % (Auto) 3.4 (0.9-7.0) % Baso % (Auto) 0.5 (0.2-2.0) % Neut # (Auto) 6.7 H (1.4-6.5) 10^3/uL Lymph # (Auto) 2.8 (1.2-3.8) 10^3/uL [place] # (Auto) 0.9 H (0.3-0.8) 10^3/uL Eos # (Auto) 0.4 (0.0-0.7) 10^3/uL Baso # (Auto) 0.1 (0.0-0.1) 10^3/uL Abs Immat Gran (auto) 0.02 (0.00-0.03) 10^3/uL Imm/Tot Granulo (auto) 0.2 (0.0-0.5) % Sodium 145 (136-145) mmol/L Potassium 4.5 (3.5-5.1) mmol/L Chloride 110 H (98-107) mmol/L Carbon Dioxide 29.2 (21.0-32.0) mmol/L Anion Gap 10.3 BUN 10.0 (7.0-18.0) mg/dL Creatinine 1.11 H (0.55-1.02) mg/dL Est GFR ( Amer) >60 (>=60) Est GFR (Non-Af Amer) 50 L (>=60) BUN/Creatinine Ratio 9.0 Glucose 122 H (74-106) mg/dL Calcium 8.9 (8.5-10.1) mg/dL Total Bilirubin 0.3 (0.2-1.0) mg/dL AST 31 (15-37) U/L ALT 34 (14-59) U/L Alkaline Phosphatase 93 (46-116) U/L Troponin I High Sens 557.0 H* (4.0-51.3) pg/mL Total Protein 6.5 (6.4-8.2) g/dL Albumin 3.2 L (3.4-5.0) g/dL Globulin 3.3 g/dL Albumin/Globulin Ratio 1.0 Urine Color Lt. yellow (YELLOW) Urine Clarity Clear (CLEAR) Urine pH 5.5 (5.0-9.0) Ur Specific [facility] 1.020 (1.005-1.025) Urine Protein Negative (NEG/TRACE) mg/dL Urine Glucose (UA) >=1000 A (NEGATIVE) mg/dL Urine Ketones Negative (NEGATIVE) mg/dL Urine Occult Blood Negative (NEGATIVE) Urine Nitrite Negative (NEGATIVE) Urine Bilirubin Negative (NEGATIVE) Urine Urobilinogen 0.2 (0.2-1.0) EU/dL Ur Leukocyte Esterase Negative (NEGATIVE) Urine RBC 0-2 (0-2) #/HPF Urine WBC None seen (NONE SEEN) #/HPF Ur Squamous Epith Cells Rare (NONE/RARE) #/LPF Urine Crystals None seen (None Seen) #/HPF Urine Bacteria None seen (NONE SEEN) #/HPF Urine Casts None seen (NONE SEEN) #/LPF Urine Mucus None seen (NONE SEEN) ECG Data Attestation: I personally reviewed and interpreted this ECG as follows: (Undetermined rhythm, possible supraventricular tachycardia with moderate ST depression and T-wave inversion in leads one to 3 aVF, V2 V3 V4 V5-this was compared to EKG from June 10 and the T-wave inversion is new) Critical Care Time Critical Care Time Critical Care Time: Yes Total Critical Care Time: 45 Attestation: Evaluation and treatment of back pain, chest pain with abnormal EKG findings and labs, comparison with previous EKGs, evaluation of prior echocardiograms and stress tests as well as consultation with cardiology and hospitalist service with arrangements for transfer Discharge Plan Discharge Chief Complaint: Back Pain/Injury Clinical Impression: Sciatica, Non-ST elevation [place] (NSTEMI) Patient Disposition: [facility] Time of Disposition Decision: 06:49 Discharge Location: [facility] Med Condition: Serious Prescriptions / Home Meds: No Action pantoprazole 40 mg tablet,delayed release (DR/EC) PO albuterol sulfate 90 mcg/actuation HFA aerosol inhaler INHALATION cyclobenzaprine 10 mg tablet 10 mg PO BID atorvastatin 80 mg tablet 80 mg PO DAILY carvedilol 6.25 mg tablet 6.25 mg PO BIDWM alprazolam 1 mg tablet 1 mg PO BID clopidogrel 75 mg tablet 75 mg PO DAILY aspirin 81 mg tablet,delayed release (DR/EC) 81 mg PO DAILY buspirone 10 mg tablet 10 mg PO BID gabapentin 300 mg capsule 300 mg PO TID dapagliflozin propanediol [Farxiga] 10 mg tablet 10 mg PO DAILY trazodone 50 mg tablet 50 mg PO DAILY levothyroxine 75 mcg Tablet 75 mcg PO ACB Qty: 30 11RF Referrals: Charlie Richardson MD [Primary Care Provider] - 1 week
--- OUTSIDE RECORDS SUMMARY | 2023-06-29 04:29 | XMS_ITS | CCD ---
Author Name Unknown Address [id number] [place] [address] Organization [facility] Care Team Providers Care Licensed Physical Therapy Assistant Name Role Phone KEISHA DORADO JR Attending Unavailable PATRICIA CORDERO Primary Care Unavailable TAMIE MANUEL Attending Unavailable UMAIR MANDUJANO Admitting Unavailable GASPER AVENDANO Referring Unavailable ЕКАТЕРИНА RICHARDSON Primary Care Unavailable Екатерина Richardson Primary Care Physician [phone] Arsenio Martin Attending Unavailable JAKOB Dunn, DR WILLAMS Consulting Unavailable HOY ., DR WILLAMS Attending Unavailable HOY ., DR WILLAMS Admitting Unavailable JAKOB ., DR WILLAMS Primary Care Unavailable HERMELINDA, DR KIRK Viera Consulting Unavailable MATTEO NGO Consulting Unavailable LINDA MARRERO Consulting Unavailable BRENNA DEE Consulting Unavailable JAKOB ., DR WILLAMS Consulting Unavailable HOY ., DR WILLAMS Attending Unavailable JAKOB ., DR WILLAMS Admitting Unavailable JAKOB Dunn, DR WILLAMS Primary Care Unavailable WINIFRED, DR EDGE Consulting Unavailable MAT[employer]O [employer] Consulting Unavailable LINDA MARRERO Consulting Unavailable BETINA ALVAREZ Consulting Unavailable JAKOB .DR WILLAMS Consulting Unavailable DR ЕКАТЕРИНА CHARLES Primary Care Unavailable IDRIS STORY Attending Unavailable IDRIS STORY Admitting Unavailable PRESTON SHELDON Consulting Unavailable JAKOB .DR WILLAMS Consulting Unavailable JAKOB ., DR WILLAMS Primary Care Unavailable JAKOB ., DR WILLAMS Attending Unavailable HOY ., DR WILLAMS Admitting Unavailable HOOriana ., DR WILLAMS Consulting Unavailable JAKOB ., DR WILLAMS Attending Unavailable JAKOB ., DR WILLAMS Admitting Unavailable JAKOB ., DR WILLAMS Primary Care Unavailable ARELI, DR CHANTEL Valenzuela Consulting Unavailable DENEEN ., DR SHEPHERD Consulting Unavailable JAKOB .DR WILLAMS Consulting Unavailable HOY ., DR WILLAMS Attending Unavailable HOY ., DR WILLAMS Admitting Unavailable JAKOB ., DR WILLAMS Primary Care Unavailable SHENG ., DR MIRNA Donato Consulting Unavailable MAT[employer] Consulting Unavailable ZENOBIA REDDY Consulting Unavailable SISTER, LEYLA Consulting Unavailable HOY ., DR WILLAMS Consulting Unavailable HOY ., DR WILLAMS Attending Unavailable HOY ., DR WILLAMS Admitting Unavailable HOY ., DR WILLAMS Primary Care Unavailable HAY ., DR SHEPHERD Consulting Unavailable NARINDER LOZOYA Consulting Unavailable SISTER, LEYLA Consulting Unavailable TAWANA ROOT Consulting Unavailable HOY ., DR WILLAMS Consulting Unavailable HOY ., DR WILLAMS Attending Unavailable HOY ., DR WILLAMS Admitting Unavailable JAKOB ., DR WILLAMS Primary Care Unavailable [employer] Consulting Unavailable RGACIE MADISON Consulting Unavailable BENNY GRECO Consulting Unavailable Allergies Allergy Classification Reported Allergen(s) Allergy Type Date of Onset Reaction(s) Facility (1 source) bee venom Drug allergy (disorder) 02-25-2021 [facility] Repository Medications Current Medications Medication Drug Class(es) Dates Sig (Normalized) Sig (Original) albuterol HFA 90 mcg/inh MDI (1 source) Start: 03-14-20 take 2 puff(s) by inhalation every four hours albuterol HFA 90 mcg/inh MDI 2 puff(s), Inhalation, q4hr, Refill(s) 0 Start Date: 03/14/21 Status: Ordered brompheniramine maleate 0.4 mg/ml / dextromethorphan hydrobromide 2 mg/ml / pseudoephedrine hydrochloride 6 mg/ml oral solution (1 source) alpha-Adrenergic Agonist, Uncompetitive V-feqryw-H-aspart ate Receptor Antagonist, Sigma-1 Agonist Start: 08-10-19 take 5 mL by mouth four times daily Bromfed DM oral syrup 5 mL, Oral, QID for cold symptoms, 200 mL, Refill(s) 0, [facility], 170.2, cm, 08/09/22 13:13:00 EDT, Height/Length Dosing, 81.6, kg, 08/09/22 13:13:00 EDT, Weight Dosing Start Date: 08/09/22 Status: Ordered busPIRone hydrochloride 10 mg oral tablet (1 source) Start: 04-05-20 take 1 tablet by mouth three times daily busPIRone 10 mg Tab 10 mg = 1 tab(s), Oral, TID, Refills(s) 0 Start Date: 04/05/21 Status: Ordered cyclobenzaprine hydrochloride 10 mg oral tablet (1 source) Muscle Relaxant Start: 03-14-20 take 1 tablet by mouth three times daily as needed for muscle spasms cyclobenzaprine 10 mg Tab 10 mg = 1 tab(s), Oral, TID, PRN for spasm, # 30 tab(s), Refills(s) 0 Start Date: 03/14/21 Status: Ordered 12 hr guaiFENesin 600 mg extended release oral tablet (1 source) Start: 08-10-19 End: 08-17-19 take 1 tablet by mouth every twelve hours Mucinex 600 mg Tab-ER 600 mg = 1 tab(s), Oral, q12hr, X 7 day(s), # 14 tab(s), Refills(s) 0, Pharmacy: [facility], 170.2, cm, 08/09/22 13:13:00 EDT, Height/Length Dosing, 81.6, kg, 08/09/22 13:13:00 EDT, Weight Dosing Start Date: 08/09/22 Stop Date: 08/16/22 Status: Ordered hydroCHLOROthiazide 12.5 mg oral tablet (1 source) Thiazide Diuretic Start: 03-14-20 take 1 tablet by mouth once daily hydrochlorothiazide 12.5 mg Tab 12.5 mg = 1 tab(s), Oral, Daily, Refills(s) 0 Start Date: 03/14/21 Status: Ordered med. marijuana edibles (1 source) Start: 07-10-19 med. marijuana edibles med. marijuana edibles, 1 gummy, Oral, Bedtime Start Date: 07/10/19 Status: Ordered pantoprazole 40 mg delayed release oral tablet (1 source) Proton Pump Inhibitor Start: 03-14-20 take 1 tablet by mouth once daily Pantoprazole [address] Tab 40 mg = 1 tab(s), Oral, Daily, Refills(s) 0 Start Date: 03/14/21 Status: Ordered predniSONE 20 mg oral tablet (1 source) Start: 08-10-19 End: 08-15-19 take 3 tablets by mouth once daily predniSONE 20 mg Tab 60 mg = 3 tab(s), Oral, Daily, X 5 day(s), # 15 tab(s), Refills(s) 0, Pharmacy: [facility], 170.2, cm, 08/09/22 13:13:00 EDT, Height/Length Dosing, 81.6, kg, 08/09/22 13:13:00 EDT, Weight Dosing Start Date: 08/09/22 Stop Date: 08/14/22 Status: Ordered pregabalin 200 mg oral capsule (1 source) Start: 03-15-20 take 1 capsule by mouth twice daily pregabalin 200 mg Cap 200 mg = 1 cap(s), Oral, BID, Refills(s) 0 Start Date: 03/15/21 Status: Ordered ProAir HFA 90 mcg/inh inhalation aerosol (1 source) Start: 04-05-20 take 2 puff(s) by inhalation every four hours for wheezing ProAir HFA 90 mcg/inh inhalation aerosol 2 puff(s), Inhalation, q4hr for wheezing, 8.5 gram, Refill(s) 0, [facility], 170, cm, 03/29/21 14:50:00 EST, Height/Length Dosing, 77.4, kg, 03/30/21 9:32:00 EST, Weight Dosing Start Date: 04/05/21 Status: Ordered sucralfate 1000 mg oral tablet (1 source) Aluminum Complex Start: 03-29-20 sucralfate 1 g Tab 1 gm = 1 tab(s), Oral, QIDACHS, Refills(s) 0 Start Date: 03/29/21 Status: Ordered traZODone hydrochloride 50 mg oral tablet (1 source) Serotonin Reuptake Inhibitor Start: 03-14-20 take 1 tablet by mouth once daily at bedtime traZODONE 50 mg Tab 50 mg = 1 tab(s), Oral, Once a day (at bedtime), Refills(s) 0 Start Date: 03/14/21 Status: Ordered Completed/Discontinued Medications Medication Drug Class(es) Dates Sig (Normalized) Sig (Original) ibuprofen 800 mg oral tablet (1 source) Nonsteroidal Anti-inflammatory Drug Start: 03-29-2021 take 1-3 tablets by mouth three times daily as needed ibuprofen 800 mg Tab 800 mg = 1 tab(s), Oral, TID, PRN Pain 1-3, Refills(s) 0 Start Date: 03/29/21 Status: Ordered Problems Active Problems Problem Classification Problem Date Documented Da te Episodic/Chronic Acute bronchitis (1 source) Acute bronchitis, unspecified; 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: [ACUTE BRONCHITIS UNSPECIFIED] Onset: 3 Episodic Acute myocardial infarction (2 sources) Non-ST elevation (NSTEMI) myocardial infarction; 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: [NON-ST ELEVATION MYOCARDIAL INFARCT] Onset: 2 Chronic Allergic reactions (1 source) Bee allergy status; 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: [BEE ALLERGY STATUS] Onset: 3 Episodic Anxiety disorders (5 sources) Anxiety; 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: [Mixed anxiety and depressive disorder] Onset: 3 07-10-2019 Chronic Bacterial infection; unspecified site (3 sources) History of methicillin resistant Staphylococcus aureus infection; 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: [Bacteremia] Onset: 3 07-10-2019 Episodic Cardiac dysrhythmias (1 source) Bradycardia, unspecified; 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: [BRADYCARDIA UNSPECIFIED] Onset: 3 Episodic Chronic obstructive pulmonary disease and bronchiectasis (7 sources) Acute exacerbation of chronic obstructive airways disease; 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: [Chronic obstructive pulmonary disease with (acute) exacerbation] Onset: 2 Chronic Congestive heart failure; nonhypertensive (3 sources) Chronic combined systolic (congestive) and diastolic (congestive) heart failure; 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: [Unspecified diastolic (congestive) heart failure] Onset: 2 Chronic Coronary atherosclerosis and other heart disease (2 sources) Atherosclerotic heart disease of [place] coronary artery without angina pectoris; 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: [Old myocardial infarction] Onset: 3 Chronic Coronary atherosclerosis and other heart disease (2 sources) Coronary angioplasty status; 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: [Presence of coronary angioplasty implant and graft] Onset: 3 Episodic Deficiency and other anemia (1 source) Anemia due to blood loss 03-15-2021 Chronic Diabetes mellitus without complication (1 source) Type 2 diabetes mellitus without complications; 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: [TYPE 2 DM WITHOUT COMPLICATIONS] Onset: 3 Chronic Diseases of white blood cells (1 source) Elevated white blood cell count, unspecified; 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: [ELEVATED WHITE BLOOD CELL COUNT UNS] Onset: 3 Chronic Disorders of lipid metabolism (1 source) Hyperlipidemia, unspecified; 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: [HYPERLIPIDEMIA UNSPECIFIED] Onset: 2 Chronic Esophageal disorders (2 sources) Gastroesophageal reflux disease; 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: [Gastro-esophageal reflux disease without esophagitis] Onset: 3 03-14-2021 Chronic Essential hypertension (2 sources) Hypertensive disorder; 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: [Essential (primary) hypertension] Onset: 3 07-10-2019 Chronic Fluid and electrolyte disorders (2 sources) Alkalosis; 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: [Hypo-osmolality and hyponatremia] Onset: 3 Episodic Gastrointestinal hemorrhage (1 source) Melena 03-15-2021 Episodic Genitourinary symptoms and ill-defined conditions (1 source) Personal history of urinary (tract) infections; 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: [PERS HX URINARY TRACT INFECTIONS] Onset: 3 Episodic Hypertension with complications and secondary hypertension (5 sources) Hypertensive heart disease with heart failure; 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: [HTN HEART DISEASE W/HEART FAIL] Onset: 2 Chronic Mood disorders (1 source) Mood disorders; 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: [DEPRESSION UNSPECIFIED] Onset: 3 Nausea and vomiting (2 sources) Nausea with vomiting, unspecified; 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: [Vomiting, unspecified] Onset: 9 Episodic Nonspecific chest pain (5 sources) Chest pain, unspecified; 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: [CHEST PAIN UNSPECIFIED] Onset: 3 Episodic Nutritional deficiencies (1 source) Vitamin D deficiency, unspecified; 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: [VITAMIN D DEFICIENCY UNSPECIFIED] Onset: 2 Chronic Other aftercare (1 source) Other jail (current) drug therapy; 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: [OTH MARINATOR CURRENT DRUG THERAPY] Onset: 3 Episodic Other aftercare (1 source) 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; 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: [CORRECTION CURRENT USE OF ASPIRIN] Onset: 3 Episodic Other aftercare (1 source) prison (current) use of antithrombotics/antipl atelets; 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: [CORRECTION ANTITHROMBOT/ANTIPLATL ETS] Onset: 3 Episodic Other aftercare (1 source) termite treater helper (current) use of oral hypoglycemic drugs; 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: [MARINATOR USE ORAL HYPOGLYCEMIC DX] Onset: 3 Episodic Other connective tissue disease (1 source) Fibromyalgia 07-10-2019 Episodic Other gastrointestinal disorders (1 source) Irritable bowel syndrome 07-10-2019 Chronic Other gastrointestinal disorders (1 source) Irritable bowel syndrome without diarrhea; 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: [IRRITABLE BOWEL SYND W/O DIARRHEA] Onset: 3 Chronic Other gastrointestinal disorders (1 source) Dysphagia 03-15-2021 Episodic Other gastrointestinal disorders (1 source) Swallowing painful 03-15-2021 Episodic Other injuries and conditions due to external causes (1 source) Personal history of (healed) traumatic fracture; 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: [PERSONAL HX HEALED TRAUMATIC FX] Onset: 3 Episodic Other lower respiratory disease (1 source) Hypoxemia; 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: [HYPOXEMIA] Onset: 3 Episodic Other lower respiratory disease (1 source) Personal history of pneumonia (recurrent); 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: [PERSONAL HX OF PNEUMONIA RECURRENT] Onset: 3 Episodic Other lower respiratory disease (1 source) Dyspnea, unspecified; 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: [DYSPNEA UNSPECIFIED] Onset: 3 Episodic Other lower respiratory disease (1 source) Acute respiratory distress; 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: [ACUTE RESPIRATORY DISTRESS] Onset: 3 Episodic Other lower respiratory disease (4 sources) Shortness of breath; 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: [SHORTNESS OF BREATH] Onset: 2 Episodic Other nutritional; endocrine; and metabolic disorders (1 source) Body mass index 25-29 - overweight 03-15-2021 Episodic Pneumonia (except that caused by tuberculosis or sexually transmitted disease) (4 sources) Pneumonia, unspecified organism; 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: [PNEUMONIA UNSPECIFIED ORGANISM] Onset: 3 Episodic Pulmonary heart disease (1 source) Chronic pulmonary embolism; 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: [CHRONIC PULMONARY EMBOLISM] Onset: 2 Chronic Residual codes; unclassified (1 source) Chronic back pain 03-14-2021 Episodic Residual codes; unclassified (1 source) Insomnia 03-14-2021 Episodic Residual codes; unclassified (1 source) Other specified postprocedural states; 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: [OTH SPECIFIED POSTPROCEDURAL STATES] Onset: 3 Episodic Residual codes; unclassified (1 source) Acquired absence of other specified parts of digestive tract; 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: [ACQ ABSENCE OTH PART DIGESTV TRACT] Onset: 3 Episodic Residual codes; unclassified (1 source) Family history of ischemic heart disease and other diseases of the circulatory system; 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: [FAM HX ISCHEMIC HRT DZ OTH DZ CIRC] Onset: 3 Episodic Residual codes; unclassified (1 source) Family history of diabetes mellitus; 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: [FAMILY HISTORY OF DIABETES MELLITUS] Onset: 3 Episodic Residual codes; unclassified (1 source) Patient's other noncompliance with medication regimen; 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: [PT OTH NONCOMPLIANCE W/ MED REGIMEN] Onset: 3 Episodic Septicemia (except in labor) (2 sources) Sepsis, unspecified organism; 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: [Severe sepsis without septic shock] Onset: 3 Episodic Spondylosis; intervertebral disc disorders; other back problems (1 source) Prolapsed lumbar intervertebral disc 07-10-2019 Chronic Substance-related disorders (2 sources) Smoker; 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: [Nicotine dependence, cigarettes, uncomplicated] Onset: 3 03-14-2021 Chronic Substance-related disorders (1 source) Cannabis use, unspecified, uncomplicated; 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: [CANNABIS USE UNS UNCOMPLICATED] Onset: 3 Episodic Unclassified (1 source) SHELTERED HOMELESSNESS; 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: [SHELTERED HOMELESSNESS] Onset: 3 Unclassified (1 source) ELEV LVLS LACTC ACID DEHYDRGENASE; 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: [ELEV LVLS LACTC ACID DEHYDRGENASE] Onset: 3 Unclassified (1 source) PERSONAL HISTORY OF COVID-19; 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: [PERSONAL HISTORY OF COVID-19] Onset: 3 Unclassified (1 source) CONTACT W/AND (SUSP) EXPOS COVID-19; 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: [CONTACT W/AND (SUSP) EXPOS COVID-19] Onset: 3 Unclassified (1 source) HOMELESSNESS UNSPECIFIED; 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: [HOMELESSNESS UNSPECIFIED] Onset: 2 Past or Other Problems Problem Classification Problem Date Documented Date Episodic/Chronic Abdominal pain (3 sources) Periumbilical pain; 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: [Epigastric pain] Onset: 09-08-2018 03-15-2021 Episodic Deficiency and other anemia (1 source) Anemia, unspecified; 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: [ANEMIA UNSPECIFIED] Onset: 05-12-2022 Episodic Diabetes mellitus without complication (1 source) Other abnormal glucose; 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: [OTHER ABNORMAL GLUCOSE] Onset: 05-12-2022 Episodic Gastroduodenal ulcer (except hemorrhage) (3 sources) Acute gastric ulcer without hemorrhage or perforation; 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: [ACUTE GASTRIC ULCER W/O HEMORR/PERF] Onset: 10-31-2021 Episodic Other hematologic conditions (1 source) Other specified abnormalities of plasma proteins; 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: [OTH SPEC ABNORM PLASMA PROTEINS] Onset: 02-02-2022 Episodic Other screening for suspected conditions (not mental disorders or infectious disease) (3 sources) Encounter for screening for malignant neoplasm of rectum; 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: [Abnormal electrocardiogram [ECG] [EKG]] Onset: 11-08-2021 Episodic Residual codes; unclassified (1 source) Insomnia, unspecified; 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: [INSOMNIA UNSPECIFIED] Onset: 05-12-2022 Episodic Residual codes; unclassified (4 sources) Localized edema; 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: [LOCALIZED EDEMA] Onset: 09-28-2021 Episodic Results Test Name Value Interpretation Reference Range Facility CBC W MANUAL DIFFon 08-25-19 23 ANISOCYTOSIS 1+ Normal [facility] Comment on above: Performed By: #### C ROSARIO ####[facility] [address] [place], [place] [address]Dr. Rosemarieashley Yañez ATYPICAL LYMPH # Normal [facility] Comment on above: Performed By: #### C ROSARIO ####[facility] [address] [place] [address]Dr. Nahed Yañez ATYPICAL LYMPH % Normal [facility] Comment on above: Performed By: #### C ROSARIO ####[facility] [address] [place] [address]Dr. Rosemarielan Yañez BAND # 0.2 103/ul Normal 0.0-0.3 [facility] Comment on above: Performed By: #### C ROSAROI ####[facility] [address] [place] [address]Dr. Rosemarielan Yañez BAND % 1 % Normal 0-5 [facility] Comment on above: Performed By: #### C GILBERTOMAN ####[facility] [address] [place] [id number]. Nahed Yañez BASOM # 0.00 103/ul Normal 0.00-0.10 [facility] Comment on above: Performed By: #### C BCMAN ####[facility] [address] [place] [id number]. Nahed Yañez BASOM % 0.0 % Critically low 0.2-2.0 [facility] Comment on above: Performed By: #### C BCMAN ####[facility] [address] [place] [id number]. Nahed Yañez BLAST # Normal [facility] Comment on above: Performed By: #### C BCMAN ####[facility] [address] [place] [address]Dr. Nahed Yañez BLAST % Normal [facility] Comment on above: Performed By: #### C BCISAIAH ####[facility] [address] [place], [place] [address]Dr. Nahed Yañez CORRECTED WBC Normal 4.0-11.0 The [facility] Comment on above: Performed By: #### C BCMAN ####[facility] [address] [place], [place] [address]Dr. Nahed Yañez EOS # 0.00 103/ul Normal 0.00-0.70 [facility] Comment on above: Performed By: #### C BCMAN ####[facility] [address] [place] [address]Dr. Nahed Yañez EOS% 0.0 % Critically low 0.9-7.0 [facility] Comment on above: Performed By: #### C BCMAN ####[facility] [address] [place] [address]Dr. Nahed Yañez HCT 33.9 % Critically low 36.0-48.0 [facility] Comment on above: Performed By: #### C BCMAN ####[facility] [address] [place], [place] [id number]. Nahed Yañez HGB 10.8 g/dl Critically low 12.0-16.0 [facility] Comment on above: Performed By: #### Isabell PONCE ####[facility] [address] [place], [place] [address]Jb. Nahed Yañez HYPOCHROMASIA SLIGHT Normal [facility] Comment on above: Performed By: #### C ROSARIO ####[facility] [address] [place], [place] [address]Vf. Nahed Yañez LYMPHM # 2.59 103/ul Normal 1.20-3.80 [facility] Comment on above: Performed By: #### C ROSARIO ####[facility] [address] [place], [place] [address]Am. Nahed Yañez LYMPHM% 16.0 % Critically low 20.5-60.0 [facility] Comment on above: Performed By: #### Isabell PONCE ####[facility] [address] [place], [place] [address]Fb. Nahed Yañez MCH 28.5 pg Normal 26.7-34.0 [facility] Comment on above: Performed By: #### Isabell PONCE ####[facility] [address] [place], [place] [address]Jm. Nahed Yañez MCHC 31.9 g/dl Normal 29.9-35.2 [facility] Comment on above: Performed By: #### Isabell PONCE ####[facility] [address] [place], [place] [address]Wj. Nahed Yañez MCV 89.4 fL Normal 81.0-99.0 [facility] Comment on above: Performed By: #### Isabell PONCE ####[facility] [address] [place], [place] [address]Ok. Nahed Otilio METAMYELOCYTE # Normal The [facility] Comment on above: Performed By: #### C ROSARIO ####[facility] [address] [place], [place] [address]Hs. Nahed Yañez METAMYELOCYTE % Normal [facility] Comment on above: Performed By: #### Isabell PONCE ####[facility] [address] [place] [id number]. Nahed Yañez MONOM# 1.30 103/ul Critically high 0.30-0.80 [facility] Comment on above: Performed By: #### C ROSARIO ####[facility] [address] [place] [id number]. Nahed Yañez MONOM% 8.0 % Normal 1.7-12.0 [facility] Comment on above: Performed By: #### C ROSARIO ####[facility] [address] [place] [id number]. Nahed Yañez MPV 9.8 fL Normal 9.5-13.5 [facility] Comment on above: Performed By: #### C ROSARIO ####[facility] [address] [place] [address]Dr. Nahed Yañez MYELOCYTE # Normal [facility] Comment on above: Performed By: #### C ROSARIO ####[facility] [address] [place] [address]Dr. Nahed Yañez MYELOCYTE % Normal [facility] Comment on above: Performed By: #### C ROSARIO ####[facility] [address] [place] [address]Dr. Nahed Yañez NRBC Normal [facility] Comment on above: Performed By: #### C ROSARIO ####[facility] [address] [place] [phone]. Nahed Yañez PLT 302 103/ul Normal 150-450 [facility] Comment on above: Performed By: #### C ROSARIO ####[facility] [address] [place] [id number]. Nahed Yañez RBC 3.79 106/ul Critically low 4.20-5.40 [facility] Comment on above: Performed By: #### C ROSARIO ####[facility] [address] [place] [address]Dr. Nahed Yañez RDW 15.3 % Critically high 11.0-15.0 [facility] Comment on above: Performed By: #### C ROSARIO ####[facility] [address] [place] [address]Dr. Nahed Yañez SEG # 12.15 103/ul Critically high 1.40-6.50 [facility] Comment on above: Performed By: #### C ROSARIO ####[facility] [address] [place] [address]Dr. Nahed Yañez SEG % 75.0 % Normal 43.0-75.0 [facility] Comment on above: Performed By: #### C ROSARIO ####[facility] [address] [place] [address]Dr. Nahed Yañez WBC 16.2 103/ul Critically high 4.0-11.0 [facility] Comment on above: Performed By: #### C ROSARIO ####[facility] [address] [place] [address]Dr. Nahed Yañez POINT OF CARE GLUCOSEon 08-12 Glucose [Mass/Vol] 221 mg/dL Critically high 74-106 [facility] Comment on above: Performed By: #### P OCGLUC ####[facility] [address] [place] [address]Dr. Nahed Otilio PROF 14(COMP METB)on 023 Albumin [Mass/Vol] 2.2 g/dL Critically low 3.4-5.0 [facility] Comment on above: Performed By: #### C RENZO, JUDY ####[facility] [address] [place] [address]Dr. Nahed Otilio Albumin/Globulin [Mass ratio] 0.6 {ratio} Normal [facility] Comment on above: Performed By: #### C RENZO, JUDY ####[facility] Lrqesawgbc20[address] [place] [address]Dr. Nahed Yañez ALP [Catalytic activity/Vol] 87 U/L Normal 46-116 [facility] Comment on above: Performed By: #### C RENZO, JUDY ####[facility] Ggijlfbotp[address] [place] [address]Dr. Nahed Yañez ALT [Catalytic activity/Vol] 17 U/L Normal 14-59 [facility] Comment on above: Performed By: #### C MP, JUDY ####[facility] Uffeqtkknn5446 [place] [address]Dr. Nahed Yañez Anion gap [Moles/Vol] 9.4 mmol/L Normal [facility] Comment on above: Performed By: #### C RENZO, JUDY ####[facility] Ozqlsdqybx1521 [place] [address]Dr. Nahed Yañez AST [Catalytic activity/Vol] 13 U/L Critically low 15-37 [facility] Comment on above: Performed By: #### C RENZO, JUDY ####[facility] Pppxhvdgxz7056 [place] [address]Dr. Nahed Yañez Bilirubin [Mass/Vol] 0.2 mg/dL Normal 0.2-1.0 [facility] Comment on above: Performed By: #### C RENZO, JUDY ####[facility] Oupvpdpapj[address] [place], [place] [address]Dr. Nahed Yañez Calcium [Mass/Vol] 9.1 mg/dL Normal 8.5-10.1 [facility] Comment on above: Performed By: #### C RENZO, JUDY ####[facility] Zusdnznrpg[address] [place], [place] [address]Dr. Nahed Yañez Chloride [Moles/Vol] 103 mmol/L Normal 98-107 [facility] Comment on above: Performed By: #### C RENZO, JUDY ####[facility] Gvtpxxydwl388[address] [place], [place] [address]Dr. Nahed Yañez CO2 [Moles/Vol] 29.1 mmol/L Normal 21.0-32.0 [facility] Comment on above: Performed By: #### C RENZO, JUDY ####[facility] Kkepvuzntu248[address] [place], [place] [address]Dr. Nahed Yañez Creatinine [Mass/Vol] 1.05 mg/dL Critically high 0.55-1.02 [facility] Comment on above: Performed By: #### C RENZO, JUDY ####[facility] Gcvseetqxh9752 [place] [address]Dr. Nahed Yañez EGFR-AF GERMAN >60 Normal >=60 [facility] Comment on above: Performed By: #### C RENZO, JUDY ####[facility] Lwaxctsrby0670 [place] [address]Dr. Nahed Yañez EGFR-NON AF GERMAN 53 mL/min/1.73m2 Critically low >=60 [facility] Comment on above: Performed By: #### C RENZO, JUDY ####[facility] Gnfjkmxflo3932 [place] [address]Dr. Nahed Yañez Globulin (S) [Mass/Vol] 3.5 g/dL Normal [facility] Comment on above: Performed By: #### C RENZO, JUDY ####[facility] Wieuuivuao[address] [place], [place] [address]Dr. Nahed Yañez Glucose [Mass/Vol] 121 mg/dL Critically high 74-106 [facility] Comment on above: Performed By: #### C RENZO, JUDY ####[facility] Fbwlkcdsmj079[address] [place], [place] [address]Dr. Nahed Yañez Potassium [Moles/Vol] 4.5 mmol/L Normal 3.5-5.1 [facility] Comment on above: Performed By: #### C RENZO, JUDY ####[facility] Dlxebhgkop596[address] [place], [place] [address]Dr. Nahed Yañez Protein [Mass/Vol] 5.7 g/dL Critically low 6.4-8.2 [facility] Comment on above: Performed By: #### C RENZO, JUDY ####[facility] Opwvoxbxyc913[address] [place], [place] [address]Dr. Nahed Yañez Sodium [Moles/Vol] 137 mmol/L Normal 136-145 [facility] Comment on above: Performed By: #### C RENZO, JUDY ####[facility] Dpmloilwpn15[address] [place], [place] [address]Dr. Nahed Yañez Urea nitrogen [Mass/Vol] 24.0 mg/dL Critically high 7.0-18.0 [facility] Comment on above: Performed By: #### C RENZO, JUDY ####[facility] Bkjlmfyyvj08[address] [place], [place] [address]Dr. Nahed Yañez Urea nitrogen/Creatinine [Mass ratio] 22.9 mg/mg Normal [facility] Comment on above: Performed By: #### C RENZO JUDY ####[facility] Oseadkzuav9090 [place] [address]Dr. Nahed Yañez THEOPHYLLINEon 08-24-2022 THEOPHYLLINE 18.2 ug/mL Normal 10.0-20.0 [facility] Comment on above: Performed By: #### C JUDY MULLER ####[facility] Coedegnsui6086 [place] [address]Dr. Nahed Yañez CBC W MANUAL DIFFon 08-24-19 ATYPICAL LYMPH # 0.20 103/ul Normal [facility] Comment on above: Performed By: #### C ROSARIO ####[facility] Mrevfnbwfk9[address] [place], [place] [address]Dr. Nahed Yañez ATYPICAL LYMPH % 1 % Normal [facility] Comment on above: Performed By: #### C ROSARIO ####[facility] Xaryizkixh575[address] [place], [place] [address]Dr. Nahed Yañez BAND # 0.0 103/ul Normal 0.0-0.3 [facility] Comment on above: Performed By: #### C ROSARIO ####[facility] Vmvufuxsmw177[address] [place], [place] [address]Dr. Nahed Yañez BAND % 0 % Normal 0-5 [facility] Comment on above: Performed By: #### C ROSARIO ####[facility] Rjvwznhzug[address] [place], [place] [address]Dr. Nahed Yañez BASOM # 0.00 103/ul Normal 0.00-0.10 [facility] Comment on above: Performed By: #### C ROSARIO ####[facility] Cyqapwdaxr026[address] [place], [place] [address]Dr. Nahed Yañez BASOM % 0.0 % Critically low 0.2-2.0 The [facility] Comment on above: Performed By: #### C ROSARIO ####[facility] Zyinosktvp627[address] [place], [place] [address]Dr. Nahed Yañez BLAST # Normal [facility] Comment on above: Performed By: #### C ROSARIO ####[facility] Vrsjbpdxim3317 [place] [id number]. Nahed Yañez BLAST % Normal [facility] Comment on above: Performed By: #### C ROSARIO ####[facility] Fsshytzhpv0133 [place] [id number]. Nahed Yañez CORRECTED WBC Normal 4.0-11.0 The [facility] Comment on above: Performed By: #### C ROSARIO ####[facility] Iowzyhbjyb7516 [place] [id number]. Nahed Yañez EOS # 0.00 103/ul Normal 0.00-0.70 [facility] Comment on above: Performed By: #### C ROSARIO ####[facility] Oowynkoltq9553 [place] [address]Dr. Nahed Yañez EOS% 0.0 % Critically low 0.9-7.0 [facility] Comment on above: Performed By: #### C ROSARIO ####[facility] Qokweiwnys978[address] [place], [place] [address]Dr. Nahed Yañez HCT 33.5 % Critically low 36.0-48.0 [facility] Comment on above: Performed By: #### C ROSARIO ####[facility] Zjoeupnvdd8796 [place] [address]Dr. Nahed Yañez HGB 10.7 g/dl Critically low 12.0-16.0 The [facility] Comment on above: Performed By: #### C ROSARIO ####[facility] Upevrtpqmn4233 [place] [address]Dr. Nahed Yañez LYMPHM # 1.39 103/ul Normal 1.20-3.80 [facility] Comment on above: Performed By: #### C ROSARIO ####[facility] Xkqjpayjod1630 [place] [address]Dr. Nahed Yañez LYMPHM% 7.0 % Critically low 20.5-60.0 [facility] Comment on above: Performed By: #### C ROSARIO ####[facility] Qchmmwgfbz3914 [place] [phone]. Nahed Yañez MCH 28.5 pg Normal 26.7-34.0 [facility] Comment on above: Performed By: #### C ROSARIO ####[facility] Fiivsearoz1361 [place] [id number]. Nahed Yañez MCHC 31.9 g/dl Normal 29.9-35.2 [facility] Comment on above: Performed By: #### C ROSARIO ####[facility] Chbkxmxxin9344 [place] [phone]. Nahed Yañez MCV 89.1 fL Normal 81.0-99.0 [facility] Comment on above: Performed By: #### C ROSARIO ####[facility] Zpynudspmd8[address] [place], [place] [address]Dr. Nahed Yañez METAMYELOCYTE # Normal [facility] Comment on above: Performed By: #### C ROSARIO ####[facility] Kgpcdsndlh[address] [place], [place] [address]Dr. Nahed Yañez METAMYELOCYTE % Normal [facility] Comment on above: Performed By: #### C ROSARIO ####[facility] Mcbcfwdouv[address] [place], [place] [address]Dr. Nahed Yañez MONOM# 0.40 103/ul Normal 0.30-0.80 [facility] Comment on above: Performed By: #### C ROSARIO ####[facility] Ezvbokoqer7[address] [place], [place] [address]Dr. Nahed Yañez MONOM% 2.0 % Normal 1.7-12.0 [facility] Comment on above: Performed By: #### C ROSARIO ####[facility] Qunookiuxm7616 [place] [id number]. Nahed Yañez MPV 10.0 fL Normal 9.5-13.5 [facility] Comment on above: Performed By: #### C ROSARIO ####[facility] Pgyitkvmbz2373 [place] [address]Dr. Nahed Yañez MYELOCYTE # Normal [facility] Comment on above: Performed By: #### C ROSARIO ####[facility] Ujarkxewom4959 [place], [place] [address]Hv. Nahed Yañez MYELOCYTE % Normal [facility] Comment on above: Performed By: #### C BCMAN ####[facility] Ocafnnojnf5820 [place], [place] [address]Fs. Nahed Yañez NRBC Normal [facility] Comment on above: Performed By: #### C BCISAIAH ####[facility] Qgzddjmfib9606 [place], [place] [address]Yq. Nahed Yañez PLT 338 103/ul Normal 150-450 [facility] Comment on above: Performed By: #### C ROSARIO ####[facility] Cbzuuhzwkl2436 [place], [place] [address]Vv. Nahed Yañez RBC 3.76 106/ul Critically low 4.20-5.40 The [facility] Comment on above: Performed By: #### C ROSARIO ####[facility] Gzlltuetqh1057 [place] [phone]. Nahed Yañez RDW 15.3 % Critically high 11.0-15.0 [facility] Comment on above: Performed By: #### C ROSARIO ####[facility] Hhjtffbcwr3021 [place], [place] [address]Sg. Nahed Yañez SEG # 17.91 103/ul Critically high 1.40-6.50 [facility] Comment on above: Performed By: #### C ROSARIO ####[facility] Kgwzwyuick0932 [place] [phone]. Nahed Yañez SEG % 90.0 % Critically high 43.0-75.0 The [facility] Comment on above: Performed By: #### C BCISAIAH ####[facility] Tedeglqmvo6494 [place], [place] [address]Na. Nahed Yañez WBC 19.9 103/ul Critically high 4.0-11.0 [facility] Comment on above: Performed By: #### C BCISAIAH ####[facility] Cwamwsevwu4184 [place] [phone]. Nahed Yañez POINT OF CARE GLUCOSEon 08-12 Glucose [Mass/Vol] 200 mg/dL Critically high 74-106 [facility] Comment on above: Performed By: #### P OCGLUC ####[facility] Bvlkznykyy5521 [place] [address]Dr. Nahed Yañez Glucose [Mass/Vol] 131 mg/dL Critically high 74-106 [facility] Comment on above: Performed By: #### P OCGLUC ####[facility] Hynzohvkpk5460 [place] [address]Dr. Nahed Yañez Glucose [Mass/Vol] 176 mg/dL Critically high 74-106 [facility] Comment on above: Performed By: #### P OCGLUC ####[facility] Oxoacwawnb[address] [place], [place] [address]Dr. Nahed Yañez PROF 14(COMP METB)on 023 Albumin [Mass/Vol] 2.2 g/dL Critically low 3.4-5.0 [facility] Comment on above: Performed By: #### Nydia ELLER CMP ####[facility] Uxdltgxbyj195[address] [place], [place] [address]Dr. Nahed Yañez Albumin/Globulin [Mass ratio] 0.6 {ratio} Normal [facility] Comment on above: Performed By: #### Nydia ELLER CMP ####[facility] Nvssfrdltc[address] [place], [place] [address]Dr. Nahed Yañez ALP [Catalytic activity/Vol] 101 U/L Normal 46-116 [facility] Comment on above: Performed By: #### Nydia ELLER CMP ####[facility] Zgsxbmfkcf360[address] [place], [place] [address]Dr. Nahed Yañez ALT [Catalytic activity/Vol] 19 U/L Normal 14-59 [facility] Comment on above: Performed By: #### Nydia ELLER CMP ####[facility] Ttiheztdvl069[address] [place], [place] [address]Dr. Nahed Yañez Anion gap [Moles/Vol] 12.0 mmol/L Normal [facility] Comment on above: Performed By: #### Nydia ELLER CMP ####[facility] Abnimypaon[address] [place], [place] [address]Dr. Nahed Yañez AST [Catalytic activity/Vol] 14 U/L Critically low 15-37 [facility] Comment on above: Performed By: #### Nydia ELLER, CMP ####[facility] Eoyyykfjcq[address] [place], [place] [address]Dr. Nahed Yañez Bilirubin [Mass/Vol] 0.2 mg/dL Normal 0.2-1.0 [facility] Comment on above: Performed By: #### Nydia ELLER, CMP ####[facility] Sgfqtftkqn[address] [place], [place] [address]Dr. Nahed Yañez Calcium [Mass/Vol] 9.5 mg/dL Normal 8.5-10.1 [facility] Comment on above: Performed By: #### Nydia ELLER CMP ####[facility] Jlsbtbevrt[address] [place], [place] [address]Dr. Nahed Yañez Chloride [Moles/Vol] 105 mmol/L Normal 98-107 [facility] Comment on above: Performed By: #### Nydia ELLER CMP ####[facility] Lkjycgxzec037[address] [place], [place] [address]Dr. Nahed Yañez CO2 [Moles/Vol] 27.9 mmol/L Normal 21.0-32.0 [facility] Comment on above: Performed By: ###Daniela ELLER CMP ####[facility] Vtamtbhrpb[address] [place], [place] [address]Dr. Nahed Yañez Creatinine [Mass/Vol] 1.08 mg/dL Critically high 0.55-1.02 [facility] Comment on above: Performed By: #### Nydia ELLER CMP ####[facility] Pfosiwwimw1922 [place] [address]Dr. Nahed Yañez EGFR-AF GERMAN >60 Normal >=60 [facility] Comment on above: Performed By: #### Nydia ELLER CMP ####[facility] Fdklyhdqyl[address] [place], [place] [address]Dr. Nahed Yañez EGFR-NON AF GERMAN 52 mL/min/1.73m2 Critically low >=60 [facility] Comment on above: Performed By: #### T RAFITA, CMP ####[facility] Jupptnkhbe0371 [place] [phone]. Nahed Yañez Globulin (S) [Mass/Vol] 3.7 g/dL Normal [facility] Comment on above: Performed By: #### Nydia ELLER, CMP ####[facility] Ekpcxlhdns1373 [place] [phone]. Nahed Yañez Glucose [Mass/Vol] 182 mg/dL Critically high 74-106 [facility] Comment on above: Performed By: #### Nydia ELLER, CMP ####[facility] Bhtslfdmld2653 [place] [address]Dr. Nahed Otilio Potassium [Moles/Vol] 3.9 mmol/L Normal 3.5-5.1 [facility] Comment on above: Performed By: #### Nydia ELLER CMP ####[facility] Nhuoyuupzd6099 [place] [address]Dr. Rosemarieashley Yañez Protein [Mass/Vol] 5.9 g/dL Critically low 6.4-8.2 [facility] Comment on above: Performed By: #### Nydia ELLER CMP ####[facility] Achrwguhzm038[address] [place], [place] [address]Dr. Nahed Otilio Sodium [Moles/Vol] 141 mmol/L Normal 136-145 [facility] Comment on above: Performed By: #### Nydia ELLER CMP ####[facility] Cegunmbdbn6483 [place] [address]Dr. Nahed Yañez Urea nitrogen [Mass/Vol] 20.0 mg/dL Critically high 7.0-18.0 [facility] Comment on above: Performed By: #### Nydia ELLER CMP ####[facility] Nyrmoythuf4154 [place] [address]Dr. Nahed Otilio Urea nitrogen/Creatinine [Mass ratio] 18.5 mg/mg Normal [facility] Comment on above: Performed By: #### Nydia ELLER CMP ####[facility] Fgqoydatnz2022 [place] [address]Dr. Nahed Yañez THEOPHYLLINEon 08-23-2022 THEOPHYLLINE 22.9 ug/mL Critically high 10.0-20.0 [facility] Comment on above: Performed By: #### T RAFITA, CMP ####[facility] Bhrgahjbbt[address] [place], [place] [address]Dr. Nahed Yañez CBC AUTO DIFFon 08-22-2022 BASO # 0.0 103/ul Normal 0.0-0.1 [facility] Comment on above: Performed By: #### C BC ####[facility] Ifzummtnmu[address] [place], [place] [address]Dr. Nahed Otilio Basophils/100 WBC (Bld) 0.1 % Critically low 0.2-2.0 [facility] Comment on above: Performed By: #### C BC ####[facility] Gzeoiufmsv9[address] [place], [place] [address]Dr. Nahed Yañez EO # 0.0 103/ul Normal 0.0-0.7 [facility] Comment on above: Performed By: #### C BC ####[facility] Oyxbyxthgf037[address] [place], [place] [address]Dr. Rosemarieashley Yañez Eosinophils/100 WBC (Bld) 0.0 % Critically low 0.9-7.0 [facility] Comment on above: Performed By: #### C BC ####[facility] Tuuaqkifhd[address] [place], [place] [address]Dr. Nahed Yañez Erythrocyte distribution width (RBC) [Ratio] 15.1 % Critically high 11.0-15.0 [facility] Comment on above: Performed By: #### C BC ####[facility] Wanzltgcwp23[address] [place], [place] [address]Dr. Rosemarieashley Yañez Hematocrit (Bld) [Volume fraction] 31.4 % Critically low 36.0-48.0 [facility] Comment on above: Performed By: #### C BC ####[facility] Xtemthhsdw[address] [place], [place] [address]Dr. Nahed Yañez Hemoglobin (Bld) [Mass/Vol] 10.2 g/dL Critically low 12.0-16.0 [facility] Comment on above: Performed By: #### C BC ####[facility] Kyzohhvnss8663 [place] [phone]. Nahed Yañez IG # 0.08 10e3/ul Critically high 0.00-0.03 [facility] Comment on above: Performed By: #### C BC ####[facility] Knhjwpousd5438 [place] [address]Dr. Nahed Yañez IG % 0.6 % Critically high 0.0-0.5 The [facility] Comment on above: Performed By: #### C BC ####[facility] Gceyjjoccg0150 [place] [address]Dr. Nahed Otilio LYMPH # 0.9 103/ul Critically low 1.2-3.8 The [facility] Comment on above: Performed By: #### C BC ####[facility] Khfzqckrgj9849 [place] [address]Dr. Rosemarieashley Yañez Lymphocytes/100 WBC (Bld) 6.1 % Critically low 20.5-60.0 [facility] Comment on above: Performed By: #### C BC ####[facility] Iwiqxbxpci5581 [place] [address]Dr. Nahed Otilio MANUAL DIFF REQ NO Normal [facility] Comment on above: Performed By: #### C BC ####[facility] Mukjutrebc3047 [place] [address]Dr. Nahed Yañez MCH (RBC) [Entitic mass] 28.3 pg Normal 26.7-34.0 [facility] Comment on above: Performed By: #### C BC ####[facility] Lmkshxjbjs0067 [place] [address]Dr. Nahed Otilio MCHC (RBC) [Mass/Vol] 32.5 g/dL Normal 29.9-35.2 [facility] Comment on above: Performed By: #### C BC ####[facility] Cnvbcgxvin[address] [place], [place] [address]Dr. Nahed Otilio MCV (RBC) [Entitic vol] 87.0 fL Normal 81.0-99.0 [facility] Comment on above: Performed By: #### C BC ####[facility] Ueggddvqhi9268 [place] [phone]. Naehd Yañez MONO # 0.7 103/ul Normal 0.3-0.8 [facility] Comment on above: Performed By: #### C BC ####[facility] Wlutzgbncb6483 [place] [phone]. Nahed Yañez Monocytes/100 WBC (Bld) 5.1 % Normal 1.7-12.0 [facility] Comment on above: Performed By: #### C BC ####[facility] Eeunfasyux3541 [place] [phone]. Nahed Yañez NEUT # 12.2 103/ul Critically high 1.4-6.5 [facility] Comment on above: Performed By: #### C BC ####[facility] Bhpbhormcr2785 [place] [address]Dr. Nahed Yañez Neutrophils/100 WBC (Bld) 88.1 % Critically high 43.0-75.0 [facility] Comment on above: Performed By: #### C BC ####[facility] Skegyqvhan1503 [place] [phone]. Nahed Yañez Platelet mean volume (Bld) [Entitic vol] 10.2 fL Normal 9.5-13.5 [facility] Comment on above: Performed By: #### C BC ####[facility] Pphnqkryod9590 [place] [phone]. Nahed Yañez PLT 271 103/ul Normal 150-450 [facility] Comment on above: Performed By: #### C BC ####[facility] Ktnjghrrai4982 [place] [phone]. Nahed Yañez RBC 3.61 106/ul Critically low 4.20-5.40 The [facility] Comment on above: Performed By: #### C BC ####[facility] Dewcmnjdsz4091 [place] [phone]. Nahed Yañez WBC 13.9 103/ul Critically high 4.0-11.0 [facility] Comment on above: Performed By: #### C BC ####[facility] Xyqtphtusf2813 [place] [phone]. Nahed Yañez CULTURE URINEon 08-22-2022 CULTURE URINE Culture Observations : LIGHT GROWTH OF MIXED GENITAL MIGUEL. NO POTENTIAL PATHOGENS SEEN. Normal [facility] Comment on above: Performed By: #### U RCX ####[facility] Bfhystpqsj2662 [place] [address]Dr. Nahed Otilio POINT OF CARE GLUCOSEon 08-12 Glucose [Mass/Vol] 252 mg/dL Critically high 74-106 [facility] Comment on above: Performed By: #### P OCGLUC ####[facility] Kfjrulhdoy6474 [place] [address]Dr. Rosemarieashley Otilio Glucose [Mass/Vol] 293 mg/dL Critically high -106 [facility] Comment on above: Performed By: #### P OCGLUC ####[facility] Homtpvrchg9554 [place] [address]Dr. Nahed Yañez Glucose [Mass/Vol] 292 mg/dL Critically high -106 [facility] Comment on above: Performed By: #### P OCGLUC ####[facility] Pykqnkpnlk7042 [place] [address]Dr. Nahed Yañez PROF 14(COMP METB)on 023 Albumin [Mass/Vol] 2.1 g/dL Critically low 3.4-5.0 [facility] Comment on above: Performed By: #### C MP ####[facility] [address]rbgzvuz[address] [place], [place] [address]Dr. Nahed Yañez Albumin/Globulin [Mass ratio] 0.5 {ratio} Normal [facility] Comment on above: Performed By: #### C MP ####[facility] Gzfwhqzept3410 [place] [address]Dr. Nahed Yañez ALP [Catalytic activity/Vol] 92 U/L Normal 46-116 [facility] Comment on above: Performed By: #### C MP ####[facility] Dtlqvcbwjk9932 [place] [address]Dr. Nahed Yañez ALT [Catalytic activity/Vol] 19 U/L Normal 14-59 [facility] Comment on above: Performed By: #### C MP ####[facility] Evxk[address]zlvt30[address] [place] [id number]. Nahed Yañez Anion gap [Moles/Vol] 15.9 mmol/L Normal [facility] Comment on above: Performed By: #### C MP ####[facility] Grdiqalqry3665 [place] [id number]. Nahed Yañez AST [Catalytic activity/Vol] 8 U/L Critically low 15-37 [facility] Comment on above: Performed By: #### C MP ####[facility] Aibvyhodbc38[address] [place] [address]Dr. Nahed Yañez Bilirubin [Mass/Vol] 0.3 mg/dL Normal 0.2-1.0 [facility] Comment on above: Performed By: #### C MP ####[facility] Xgppnesbpm[address] [place], [place] [address]Dr. Nahed Yañez Calcium [Mass/Vol] 9.4 mg/dL Normal 8.5-10.1 [facility] Comment on above: Performed By: #### C MP ####[facility] Yggidmqzyb[address] [place], [place] [address]Dr. Nahed Yañez Chloride [Moles/Vol] 101 mmol/L Normal 98-107 [facility] Comment on above: Performed By: #### C MP ####[facility] Zcornvbdjl677[address] [place], [place] [address]Dr. Nahed Yañez CO2 [Moles/Vol] 22.5 mmol/L Normal 21.0-32.0 [facility] Comment on above: Performed By: #### C MP ####[facility] Amrjwvfodl17[address] [place], [place] [address]Dr. Nahed Yañez Creatinine [Mass/Vol] 1.16 mg/dL Critically high 0.55-1.02 [facility] Comment on above: Performed By: #### C MP ####[facility] Dwisnaucvy384[address] [place], [place] [address]Dr. Nahed Yañez EGFR-AF GERMAN 58 mL/min/1.73m2 Critically low >=60 [facility] Comment on above: Performed By: #### C MP ####[facility] Tjxxinfsek39[address] [place] [address]Dr. Nahed Yañez EGFR-NON AF GERMAN 47 mL/min/1.73m2 Critically low >=60 [facility] Comment on above: Performed By: #### C MP ####[facility] Jnjmbkxslp2033 [place] [address]Dr. Nahed Yañez Globulin (S) [Mass/Vol] 4.2 g/dL Normal [facility] Comment on above: Performed By: #### C MP ####[facility] Wxyqbuxyun6567 [place] [address]Dr. Nahed Yañez Glucose [Mass/Vol] 409 mg/dL Critically high 74-106 [facility] Comment on above: Performed By: #### C MP ####[facility] Rzzapfretl2712 [place] [address]Dr. Nahed Yañez Potassium [Moles/Vol] 3.4 mmol/L Critically low 3.5-5.1 [facility] Comment on above: Performed By: #### C MP ####[facility] Qelhtiamar58[address] [place], [place] [address]Dr. Nahed Yañez Protein [Mass/Vol] 6.3 g/dL Critically low 6.4-8.2 [facility] Comment on above: Performed By: #### C MP ####[facility] Efcxiuitiz1025[address] [place], [place] [address]Dr. Nahed Yañez Sodium [Moles/Vol] 136 mmol/L Normal 136-145 [facility] Comment on above: Performed By: #### C MP ####[facility] Ogmeurzdnx606[address] [place], [place] [address]Dr. Nahed Yañez Urea nitrogen [Mass/Vol] 16.0 mg/dL Normal 7.0-18.0 [facility] Comment on above: Performed By: #### C MP ####[facility] Babaauyfjn3730[address] [place], [place] [address]Dr. Nahed Yañez Urea nitrogen/Creatinine [Mass ratio] 13.8 mg/mg Normal [facility] Comment on above: Performed By: #### C MP ####[facility] Ugzsqmlkfd2540 [place] [address]Dr. Nahed Yañez THEOPHYLLINEon 08-22-2022 THEOPHYLLINE 13.4 ug/mL Normal 10.0-20.0 [facility] Comment on above: Performed By: #### T RAFITA ####[facility] Xfgpoxfxun[address] [place], [place] [address]Dr. Nahed Yañez UA RANDOM W/MICROSCOPICon BACTERIA NONE SEEN Normal NONE SEEN The [facility] Comment on above: Performed By: #### U AMIC ####[facility] Xetlfvpfra0530[address] [place], [place] [address]Dr. Nahed Yañez Bilirubin Ql (U) Negative Normal NEGATIVE The [facility] Comment on above: Performed By: #### U AMIC ####[facility] Hzwlhkhpzt4510[address] [place], [place] [address]Dr. Nahed Yañez CAST NONE SEEN Normal NONE SEEN The [facility] Comment on above: Performed By: #### U AMIC ####[facility] Sxabyibyqg2340[address] [place], [place] [address]Dr. Nahed Yañez Clarity (U) CLEAR Normal CLEAR The [facility] Comment on above: Performed By: #### U AMIC ####[facility] Hjjmjzsvad790[address] [place], [place] [address]Dr. Nahed Yañez Color (U) LT. YELLOW Normal YELLOW The [facility] Comment on above: Performed By: #### U AMIC ####[facility] Juntvqglss138[address] [place], [place] [address]Dr. Nahed Yañez Crystals LM Nom (Urine sed) NONE SEEN Normal NONE SEEN The [facility] Comment on above: Performed By: #### U AMIC ####[facility] Sxejyjbfyl40[address] [place], [place] [address]Dr. Nahed Yañez Epithelial cells LM Ql (Urine sed) RARE Normal NONE SEEN /RARE The [facility] Comment on above: Performed By: #### U AMIC ####[facility] Cirgrdvfle7200[address] [place], [place] [address]Dr. Nahed Yañez Glucose Ql (U) 100 mg/dl Abnormal NEGATIVE The [facility] Comment on above: Performed By: #### U AMIC ####[facility] Ojlqtfgrhq70[address] [place] [address]Dr. Nahed Yañez Hemoglobin Ql (U) Negative Normal NEGATIVE The [facility] Comment on above: Performed By: #### U AMIC ####[facility] Wsezefztth[address] [place] [address]Dr. Nahed Yañez Ketones Ql (U) Negative Normal NEGATIVE The [facility] Comment on above: Performed By: #### U AMIC ####[facility] Ddxmwcrpzs437[address] [place], [place] [address]Dr. Nahed Yañez LEUKOCYTES Negative Normal NEGATIVE The [facility] Comment on above: Performed By: #### U AMIC ####[facility] Jqmxfemujs136[address] [place], [place] [address]Dr. Nahed Yañez MUCOUS NONE SEEN Normal NONE SEEN The [facility] Comment on above: Performed By: #### U AMIC ####[facility] Vomvzhjiza8312[address] [place], [place] [address]Dr. Nahed Otilio Nitrite Ql (U) Negative Normal NEGATIVE The [facility] Comment on above: Performed By: #### U AMIC ####[facility] Jryzepkvjq377[address] [place], [place] [address]Dr. Nahed Otilio pH (U) 5.5 [pH] Normal 5-9 The [facility] Comment on above: Performed By: #### U AMIC ####[facility] Slrxhytdny547[address] [place], [place] [address]Dr. Nahed Yañez RBC NONE SEEN Abnormal 0-2 The [facility] Comment on above: Performed By: #### U AMIC ####[facility] Tebgzdtpbl9085[address] [place], [place] [address]Dr. Nahed Yañez SPEC GRAVITY 1.020 Normal 1.005-<=1.02 5 The [facility] Comment on above: Performed By: #### U AMIC ####[facility] Olrqqrvmfy496[address] [place], [place] [address]Dr. Nahed Yañez UA PROTEIN Negative Normal NEGATIVE/ TRACE The [facility] Comment on above: Performed By: #### U AMIC ####[facility] Edelvsbilo[address] [place] [address]Dr. Nahed Yañez Urobilinogen Qn (U) 0.2 {Alem'U}/dL Normal 0.2 - 1. 0 The [facility] Comment on above: Performed By: #### U AMIC ####[facility] Zecqmvgogl8741 [place] [address]Dr. Nahed Yañez WBC NONE SEEN Normal NONE SEEN The [facility] Comment on above: Performed By: #### U AMIC ####[facility] Gmfodqwkct9867 [place] [address]Dr. Nahed Yañez BLOOD GASES BTYon 08-21-2022 02 MODE ROOM AIR Normal [facility] Comment on above: Performed By: #### A BG ####[facility] Gqpehdpikm335[address] [place], [place] [address]Dr. Nahed Yañez ALLENS TEST Positive Normal [facility] Comment on above: Performed By: #### A BG ####[facility] Mniszckwyn817[address] [place], [place] [address]Dr. Nahed Yañez Base excess Calc (Bld) [Moles/Vol] 3.2 mmol/L Critically high -2.0-2.0 The [facility] Comment on above: Performed By: #### A BG ####[facility] Ctgjecwfzn906[address] [place], [place] [address]Dr. Nahed Yañez BIPAP PRESSURE Normal The [facility] Comment on above: Performed By: #### A BG ####[facility] Mvzrpgbybj765[address] [place], [place] [address]Dr. Nahed Yañez CPAP Normal [facility] Comment on above: Performed By: #### A BG ####[facility] Afjfozzrzc5722[address] [place], [place] [address]Dr. Nahed Yañez FIO2 Normal [facility] Comment on above: Performed By: #### A BG ####[facility] Orcooyeaiz[address] [place], [place] [address]Dr. Nahed Yañez HCO3 (Bld) [Moles/Vol] 26.8 mmol/L Critically high 22.0-26 .0 The [facility] Comment on above: Performed By: #### A BG ####[facility] Evqzcykbwl[address] [place] [address]Dr. Nahed Yañez LPM Normal [facility] Comment on above: Performed By: #### A BG ####[facility] Spwvmllbnb60[address] [place] [address]Dr. Nahed Yañez MINUTE VOLUME Normal The [facility] Comment on above: Performed By: #### A BG ####[facility] Kpiunhhizz244[address] [place], [place] [address]Dr. Nahed Yañez Oxygen (Bld) [Partial pressure] 55.1 mm[Hg] Critically low 80.0-100.0 [facility] Comment on above: Performed By: #### A BG ####[facility] Zcklmsbeln887[address] [place], [place] [address]Dr. Nahed Yañez Oxygen saturation in Blood 90.2 % Critically low 95.0-100.0 [facility] Comment on above: Performed By: #### A BG ####[facility] Qlogbebfaq0738[address] [place], [place] [address]Dr. Nahed Yañez PCO2 36.7 mmHg Normal 35.0-45.0 [facility] Comment on above: Performed By: #### A BG ####[facility] Vvufvdtjix306[address] [place], [place] [address]Dr. Nahed Yañez PEEP [facility] Comment on above: Performed By: #### A BG ####[facility] Lokudjistg517[address] [place], [place] [address]Dr. Nahed Yañez pH (Bld) 7.472 [pH] Critically high 7.350-7.450 The [facility] Comment on above: Performed By: #### A BG ####[facility] Slsbxxmfjr95[address] [place], [place] [address]Dr. Nahed Yañez PIP [facility] Comment on above: Performed By: #### A BG ####[facility] Njlmlcgbyw33[address] [place], [place] [address]Dr. Nahed Yañez PS Divide The [facility] Comment on above: Performed By: #### A BG ####[facility] Bqehauxkxp9228 [place] [phone]. Nahed Yañez PUNCTURE SITE LR Normal The [facility] Comment on above: Performed By: #### A BG ####[facility] Wltmagcjgt0729 [place] [address]Dr. Nahed Yañez RATE Normal [facility] Comment on above: Performed By: #### A BG ####[facility] Wqdmqvzvjl5155 [place] [address]Dr. Nahed Yañez VENT MODE Normal [facility] Comment on above: Performed By: #### A BG ####[facility] Cvxrrignti0714 [place] [address]Dr. Nahed Yañez VT Normal [facility] Comment on above: Performed By: #### A BG ####[facility] Jlhemaovyj9924 [place] [address]Dr. Nahed Yañez BNPon 08-21-2022 Natriuretic peptide B (Bld) [Mass/Vol] 131.0 pg/mL Normal <=900.0 [facility] Comment on above: Performed By: #### B ELECTROMECHANISMS DESIGN DRAFTER ####[facility] Lfapjlskgh1112 [place] [address]Dr. Nahed Yañez CARDIAC FRANCISCO 3-6on 3 CK [Catalytic activity/Vol] 17 U/L Critically low 26-192 [facility] Comment on above: Performed By: #### C MREP ####[facility] Ipvuanmfzm9995 [place] [address]Dr. Nahed Yañez CK.MB [Mass/Vol] ng/mL Normal <=3.60 [facility] Comment on above: Performed By: #### C MREP ####[facility] Wgwatciokl8979 [place] [address]Dr. Nahed Yañez HSTROP 25.1 pg/mL Normal 4.0-51.3 [facility] Comment on above: Result Comment: CUT- OFF POINTS HAVE BEEN ESTABLISHED BASED ON THE FOURTH UNIVERSAL DEFINITIONS OF MYOCARDIALINFARCTION. THE UPPER REFERENCE LIMIT (URL) OF TROPONIN, DEFINED THE 99TH PERCENTILE OFcTnI DISTRIBUTION IN A REFERENCE POPULATION, HAS BEEN CONFIRMED THE DECISION THRESHOLDFOR CT DIAGNOSIS. Performed By: #### C MREP ####[facility] Qtrxfzzfja3466 [place] [address]Dr. Nahed Yañez CARDIAC FRANCISCO ADMITon 023 CK [Catalytic activity/Vol] 39 U/L Normal 26-192 [facility] Comment on above: Performed By: #### ERICK Ordonez MP ####[facility] Xgznoqcymv7236 [place] [address]Dr. Nahed Yañez CK.MB [Mass/Vol] ng/mL Normal <=3.60 [facility] Comment on above: Performed By: #### ERICK Ordonez MP ####[facility] Gonyymliok[address] [place], [place] [address]Dr. Nahed Yañez HSTROP 24.4 pg/mL Normal 4.0-51.3 The [facility] Comment on above: Result Comment: CUT- OFF POINTS HAVE BEEN ESTABLISHED BASED ON THE FOURTH UNIVERSAL DEFINITIONS OF MYOCARDIALINFARCTION. THE UPPER REFERENCE LIMIT (URL) OF TROPONIN, DEFINED THE 99TH PERCENTILE OFcTnI DISTRIBUTION IN A REFERENCE POPULATION, HAS BEEN CONFIRMED THE DECISION THRESHOLDFOR CT DIAGNOSIS. Performed By: #### ERICK Ordonez MP ####[facility] Rfixxbvoyf12[address] [place], [place] [address]Dr. Nahed Yañez ANDRE 48 ng/mL Normal 9-82 [facility] Comment on above: Performed By: #### ERICK Ordonez MP ####[facility] Ufxoplnncu4348 [place] [address]Dr. Nahed Yañez CBC AUTO DIFFon 08-21-2022 BASO # 0.0 103/ul Normal 0.0-0.1 [facility] Comment on above: Performed By: #### C BC ####[facility] Mmadmmcnby4620 [place] [address]Dr. Nahed Yañez Basophils/100 WBC (Bld) 0.2 % Normal 0.2-2.0 [facility] Comment on above: Performed By: #### C BC ####[facility] Jqjtkwwmid6088 [place] [address]Dr. Nahed Yañez EO # 0.3 103/ul Normal 0.0-0.7 [facility] Comment on above: Performed By: #### C BC ####[facility] Kenmqfhxhk3781 [place] [address]Dr. Nahed Yañez Eosinophils/100 WBC (Bld) 1.5 % Normal 0.9-7.0 [facility] Comment on above: Performed By: #### C BC ####[facility] Zicvojjlxm[address] [place], [place] [address]Dr. Nahed Yañez Erythrocyte distribution width (RBC) [Ratio] 15.0 % Normal 11.0-15.0 [facility] Comment on above: Performed By: #### C BC ####[facility] Rqmuombbup924[address] [place], [place] [address]Dr. Nahed Yañez Hematocrit (Bld) [Volume fraction] 41.4 % Normal 36.0-48.0 [facility] Comment on above: Performed By: #### C BC ####[facility] Wxveprnhzq3315[address] [place], [place] [address]Dr. Nahed Yañez Hemoglobin (Bld) [Mass/Vol] 13.5 g/dL Normal 12.0-16.0 [facility] Comment on above: Performed By: #### C BC ####[facility] Hkwovrpyza[address] [place], [place] [address]Dr. Nahed Yañez IG # 0.18 10e3/ul Critically high 0.00-0.03 [facility] Comment on above: Performed By: #### C BC ####[facility] Muwdnkiqkj513[address] [place], [place] [address]Dr. Nahed Otilio IG % 1.0 % Critically high 0.0-0.5 The [facility] Comment on above: Performed By: #### C BC ####[facility] Crzjcseubv0225[address] [place], [place] [address]DrShaun Nahed Otilio LYMPH # 2.5 103/ul Normal 1.2-3.8 [facility] Comment on above: Performed By: #### C BC ####[facility] Dipyyjzzag289198 [address] [place], [place] [address]Dr. Nahed Yañez Lymphocytes/100 WBC (Bld) 14.0 % Critically low 20.5-60.0 [facility] Comment on above: Performed By: #### C BC ####[facility] Wpxvjnbfzv0941 [place] [address]Dr. Nahed Yañez MANUAL DIFF REQ NO Normal The [facility] Comment on above: Performed By: #### C BC ####[facility] Aciidfuxey3975 [place] [address]Dr. Nahed Yañez MCH (RBC) [Entitic mass] 28.5 pg Normal 26.7-34.0 [facility] Comment on above: Performed By: #### C BC ####[facility] Clpfamrkdz5640[address] [place], [place] [address]Dr. Nahed Yañez MCHC (RBC) [Mass/Vol] 32.6 g/dL Normal 29.9-35.2 [facility] Comment on above: Performed By: #### C BC ####[facility] Zltelkmwqs6635[address] [place], [place] [address]Dr. Nahed Yañez MCV (RBC) [Entitic vol] 87.3 fL Normal 81.0-99.0 [facility] Comment on above: Performed By: #### C BC ####[facility] Bdpssmjlbw2[address] [place], [place] [address]Dr. Nahed Yañez MONO # 1.2 103/ul Critically high 0.3-0.8 The [facility] Comment on above: Performed By: #### C BC ####[facility] Wmhrmreqdd218[address] [place], [place] [address]Dr. Nahed Yañez Monocytes/100 WBC (Bld) 6.8 % Normal 1.7-12.0 [facility] Comment on above: Performed By: #### C BC ####[facility] Kcvnscenww28[address] [place], [place] [address]DrShaun Yañez NEUT # 13.8 103/ul Critically high 1.4-6.5 The [facility] Comment on above: Performed By: #### C BC ####[facility] Mpegfwjdod815[address] [place], [place] [address]Dr. Nahed Yañez Neutrophils/100 WBC (Bld) 76.5 % Critically high 43.0-75.0 [facility] Comment on above: Performed By: #### C BC ####[facility] Mnkefdkxtf3336 [place] [address]Dr. Nahed Yañez Platelet mean volume (Bld) [Entitic vol] 10.5 fL Normal 9.5-13.5 [facility] Comment on above: Performed By: #### C BC ####[facility] Rqghrshype3754 [place] [address]Dr. Nahed Yañez PLT 319 103/ul Normal 150-450 [facility] Comment on above: Performed By: #### C BC ####[facility] Hsgabiwack8[address] [place] [address]Dr. Nahed Yañez RBC 4.74 106/ul Normal 4.20-5.40 [facility] Comment on above: Performed By: #### C BC ####[facility] Evihncuqzx522[address] [place], [place] [address]Dr. Nahed Yañez WBC 18.0 103/ul Critically high 4.0-11.0 [facility] Comment on above: Performed By: #### C BC ####[facility] Pekvpfpugm694[address] [place], [place] [address]Dr. Nahed Yañez CULTURE BLOODon 08-21-2022 Microscopic examination of blood, culture Culture Observations: NO GROWTH AT 5 DAYS. Normal [facility] Comment on above: Performed By: #### B LDCX2 ####[facility] Kkfeodrbwi98[address] [place], [place] [address]Dr. Nahed Yañez Microscopic examination of blood, culture Culture Observations: NO GROWTH AT 5 DAYS. Normal [facility] Comment on above: Performed By: #### B LDCX1 ####[facility] Wfsuajmpiz710[address] [place], [place] [address]Dr. Nahed Yañez Covid-19 PCR (CVDTB)on 08-12 SARS-CoV-2 (COVID-19) RNA MIRNA+probe Ql (Unsp spec) Not detected Normal NOT DETECTED The [facility] Comment on above: Result Comment: When diagnostic testing is negative, the possibility of a false negative should be considered inthe context of a patient's recent exposures and the presence of clinical signs and symptomsconsistent with SARS-CoV-2.This test is not yet approved or cleared by the [place] FDA. When there are no FDA-approved or cleared tests available, and other criteria are met, FDA can make tests available under an emergency access mechanism called an Emergency Use Authorization (EUA). The EUA for this test is supported by the Certified Adapted Physical Educator of Health and Human Service's declaration that circumstances exist to justify the emergency use of in vitro diagnostics for the detection and/or diagnosis of the virus that causes COVID-19. This EUA will remain in effect for the duration of the COVID-19 declaration justifying emergency of IVDs, unless it is terminated or revoked by the FDA (after which the test may no longer be used). Performed By: #### C VDTBH ####[facility] Vjqsupkqrq[address] [place], [place] [address]DrShaun Yañez LACTATE/LACTIC ACIDon 2022 Lactate [Moles/Vol] 1.1 mmol/L Normal 0.4-2.0 [facility] Comment on above: Performed By: #### L ACT ####[facility] Ryhkoogfvj[address] [place], [place] [address]DrShaun Yañez Lactate [Moles/Vol] 2.4 mmol/L Critically high 0.4-2.0 [facility] Comment on above: Performed By: #### L ACT ####[facility] Fpxgonzetc[address] [place], [place] [address]DrShaun Yañez POINT OF CARE GLUCOSEon 08-12 0 Glucose [Mass/Vol] 453 mg/dL Critically high 74-106 [facility] Comment on above: Performed By: #### P OCGLUC ####[facility] Gvbtpxjywr[address] [place], [place] [address]DrShaun Yañez Glucose [Mass/Vol] 358 mg/dL Critically high 74-106 [facility] Comment on above: Performed By: #### P OCGLUC ####[facility] Zbggulzgrh238[address] [place], [place] [address]Dr. Nahed Yañez Glucose [Mass/Vol] 98 mg/dL Normal 74-106 [facility] Comment on above: Performed By: #### P OCGLUC ####[facility] Khrxwfssvi[address] [place] [address]Dr. Nahed Yañez PROF CHEM 8 (BAS METB)on Anion gap [Moles/Vol] 14.7 mmol/L Normal [facility] Comment on above: Performed By: #### B RENZO, ERICK ####[facility] Witbwkarwp7315 [place] [address]Dr. Nahed Yañez Calcium [Mass/Vol] 9.6 mg/dL Normal 8.5-10.1 [facility] Comment on above: Performed By: #### B RENZO, CMADM ####[facility] Njwtyvvaka[address] [place], [place] [address]Dr. Nahed Yañez Chloride [Moles/Vol] 95 mmol/L Critically low 98-107 [facility] Comment on above: Performed By: #### B RENZO, CMAJOSE ####[facility] Fklggsvxru[address] [place], [place] [address]Dr. Nahed Yañez CO2 [Moles/Vol] 25.2 mmol/L Normal 21.0-32.0 [facility] Comment on above: Performed By: #### B RENZO, CMADM ####[facility] Tqfvvspvfo2174 [place] [address]Dr. Nahed Yañez Creatinine [Mass/Vol] 1.15 mg/dL Critically high 0.55-1.02 [facility] Comment on above: Performed By: #### B RENZO, CMADM ####[facility] [address] [address]Dr. Nahed Yañez EGFR-AF GERMAN 58 mL/min/1.73m2 Critically low >=60 [facility] Comment on above: Performed By: #### B RENZO, CMADM ####[facility] [address] [place], [place] [address]Dr. Nahed Yañez EGFR-NON AF GERMAN 48 mL/min/1.73m2 Critically low >=60 [facility] Comment on above: Performed By: #### B RENZO, CMADM ####[facility] [address] [address]Dr. Nahed Yañez Glucose [Mass/Vol] 191 mg/dL Critically high 74-106 T [facility] Comment on above: Performed By: #### B RENZO, CMADM ####[facility] [address] [address]Dr. Nahed Yañez Potassium [Moles/Vol] 3.9 mmol/L Normal 3.5-5.1 [facility] Comment on above: Performed By: #### B RENZO, CMADM ####[facility] [address] [address]Dr. Nahed Yañez Sodium [Moles/Vol] 131 mmol/L Critically low 136-145 Th [facility] Comment on above: Performed By: #### B RENZO, ERICK ####[facility] [address] [address]Dr. Nahed Yañez Urea nitrogen [Mass/Vol] 15.0 mg/dL Normal 7.0-18.0 [facility] Comment on above: Performed By: #### B RENZO, ERICK ####[facility] [address] [place] [address] [address]Dr. Nahed Yañez Urea nitrogen/Creatinine [Mass ratio] 13.0 mg/mg Normal [facility] Comment on above: Performed By: #### B RENZO, ERICK ####[facility] [address] [place], [place] [address]Dr. Nahed Yañez XR CHEST 2 Von 08-21-2022 XR CHEST 2 V Normal [facility] Coding Summary.on 08-11-2022 Coding Summary. CD:[id number] W w+PGhlYWQ+PT5ZOCStA04 viSCbqZ1tJ7YTCGwDVcub HTDXYMfHPcEuhpNzXL2fr XNjZXJu IC8+PT9sBXFzNdvlqRCts 7L1wAV1E01btl3lRLruuD C9BWYmFoRxipjde6bdxDw 6IDcuNmluOyBt IDOnoK87TKT4sC46Pk44v ZIqgGVwe4rqrTg2KvReIU XpISU6tXlxLEtqz3RmBCM aP07eqJJhp5B7 IONmqMmzrDWgLoRlnZQ5j J3tJWfdwsbrv5qpoqswMc w3pd50qKLjg0R9eLV1D8Q skhY5ZLOneHTe LamfkETBiV1tsaubt4drp necSlYlNNYvRDx0OIv0UU WagPbjZwNeZY36VCP0DTQ mvqDmG7XwPLGu oGpxGiS8o9J2Om1GC2SWO nbvO4VKWSMVQHvhfQQ+PC 24fr08B9HwTihtUeo2TZC gKKY8uDL7xK6h HEWrXLtgc3G6vMO7K5Clr sGwio0ff0xyHTKjYDpvZ0 4boSIdy6F0ZTAseKJ1PTV jfNfbIjTgbD60 Oyc+XXUrlPdrd3AuHibkp 7odf9iapOy6YrlhNSYfvq GtiGdePNN5o0VyEp2jNJR jdVR3vOW1zW4l MtKgAiN5LPlmG674NbLlp SWsLhbaK66gK0QzhTD+PH UlGut2WFKxpRwlJD7vU0R hZGRpbmctbGVm rIqrHP4aEZMolfynOXDxi A8tVHMrK6h2ZiJzZbL3DK qkN2NqACLmxttjKw08rJ3 aKtPsAmL0WMqz U1NrxmE5KYSpeNOqHOhpP UP6X12ir2L6URMqSRBbPA H1wTE5aC6uxMydlbhewQN mdDsgdmVydGlj BPmwDEteZ225CZWpiEglF kNvZGluZyBEYXRlOiAgMD MvMzEvMjAyMzwvdGQ+PHR wODV4wVzmDHUw gCDaDEpoVc1blQehrCgkG G4qRCPogffbOSCfyN0sJI FhyPMyzWvrVG2nKZNyjxd yw306NtZjTXE6 FBAsrJEhR8UkwJ0mMmOyD YPaQCEsC2BizBSxDKgaI5 08EFzfUsF1QLHoxbMcT8N sLWFsaWduOiB0 i5D7Lt5Mb4YfcuruZ8Qmh CHgPzUxPwceYRl1B4BaJo wvdHI+GE26JAHoWW17EDs 2MPU5iPakWDie LBCdI9HxmK1zQiZsAFCvW GRkOyc+PHRhYmxlIHdpZH RoPScxMDAlJyBzdHlsZT0 qUf8pJJEmRCYf tCcvbZCbBvSkq7tvUJPvY DdmGL3ckNovT9FfvHO5KK Vhw8t3Cn58N17kO9AbyAN +EXKcnSQ7gTH9 pS4hNdSxZqX8ZCwjC572C bWncUGnFgkyr8dqq3dauW j5MgN0NLAreoKfzBypQDS 4c5FoAy40Z02x IHdpZHRoPSIxNSUiIHZhb Ctdtd2orZ6sHj7+PGNvbC D0eWF4dZ4uGjXsByB9FAo eK091FmVbgTXr Zjvmb6wep4dyjYk4DyPmH MXpycMdnVwbUSQ0q8ZiDh 53Z2JmkVtqg7ZjNqi0fx1 2hFZut9M4oYL0 S3TjMWVkwjtwxUGfqOpgN M0yINAnylkaITKbgM6qCN UxR3i4FkOeMeF3LXjfT2W cdsX2CODyzCSj RGYmlAGAaR5cnrmtm9xut otuOzKrVYYhKWw7SDq1HF FnuYsnXbMiMKV6RkY4BVP 6sPHmzC3opXbx mttztH0vJqr+VXU7vJHiw OLRZV6nPdxhdSD+PHRkIH L2rJotKIdfLYFgnT4yNLI qM1x9CgJiQwZ8 HRycY6CvrnZ1YTUhlKTwJ DGdjNLDhB5dtyisd2aozd djPyKpBTFkOPq7JPj0KLX saWduOiBsZWZ0 MfI0PXH7dFCewY0rxUnvw gsvrT0jFus+QmlydGggRG Z5ZOp0K0UtYdc0GNTgzSe bOK8evDFxIXtl Mv4bmNrfnRubJL9kEASjs asjw679UhEua3ysENTvoB NfIVioXGM0I87me8V5SQX tGKMqKDI7gJN6 bA5jsQsgfdvudDJovHaxi pVpkNdnPNuaROcdK115WQ CqmYbkYrXoGFp3C2CmOau 6FEIjrGvrOP9q lZAfJTzqHj7gvLclyRsfX A1dKBZibpxdo421UmBau7 yeQOVbaUVuZXnrAKR7A66 dr1J7HZQfBMIq SID0qWL8xV8ooGqlvuitj GVmdDsgdmVydGljYWwtYW nrN887ULFcnMrjXaBacUs 8E2PaPsf5UYTg xVloWB5fkDLnAIocLi5tf VzpnYtrWX5uYYWwykxdb9 72LuBtq0hkRZTuvFKrVXa fCRO2H22fj1R3 QKTwOJYsKXQ2eTL3pE7sx GlnbjogbGVmdDsgdmVydG wkDCwzQLfxP847KBPezEp nPlBhdGllbnQg MKwzTZq2N2CyDjidnGQ+P M12IIEfYH11kYUyfAXzv6 jhuUh4EtCmBOZpVHF1yIi pWMfwz5LkRENa P39pkALfc5W3VIUasAawk GAbInCwvQD0xT4nOLdhhl nix1twojppJilkh7bjny6 2rL29A50qGWuw ZHRoPSIzMCUiIHZhbGlnb k7xqT5aJy8+UURxcLD0eA A8cW1iEUIcCmG4XSrvR28 9InRvcCIvPjxj d1bmd8ygaWy3CsF1KZStv eHobVqmNAJ2i8LcFn42Z6 9sIHdpZHRoPSIyMCUiIHZ oqTpcqi4huD9l Ii8+TEAcuKF4dSJ0xM8bK aYgHnP6LSvwM830GlSbnA QnXajoK07aK4MzvPK+PHR fMkt4TFKjgZll GJ0vgLMuQFukPa5tYIR0W yGiUcBzBRebO3HpDVUckd ymimthpHC4NZHpAEGwzU5 4Kw8hbUbqESSf yWKYlS9vyacae5ghiwlmU nYbIFJtOKu7YTe8FRRqvX tsGwJjGYU4BiJ1TBD2vDM dyC7txMnagjcs zS9tF5PuTATpdmodMq17k L5yKsPjGtM2DQqgZwl+TU TXHP2JECHYQPYCZKO0P8H dEna9WFAuvPjn BS9syMJfQDeiZw9waFehm FygSP0eJGTctzcpEOKrxF 1lFQGmrSYmrEtlDZ8yPCZ lektzv503FiOi WDT4EADdgTAmS6NgnC2cH pVxZJQwCDMzD0OjfTNaVX afG034TBjzDiN6WTAiroL fL4BfWBAoqTjk GjC0w4K1On4rFP0bHN7sE DPtKI58EY93zALxy1Y2cV Z5V1TvRHBtzwpyplrfcIE 8HBDbVUNlxO65 lMIbMNiqZb4ph2O0u678R STiLJEbcI39Ao6ndOooFG DukQVXlF1nzjtas8cyvrh gIzAwMDAwMDt0 RNc4FXJscPmfCjByWPE0I yZ7ITY5bVTkxO9kfFdgzt ubiN6zLto+NjEgWWVhcnM 7T7AoAdx9KJZp rFauCC5yyKNjSAaeGw2mz FabgLkbUI0qBDFryhxxCF AheP7mKBYzkTNtxCdwES4 lMZUovglwi330 ZdQnVBT0IBEfkHSgI0Vyu T2uOjVqTUExTUGwW1KreB JyXHksH170KHryCiB9VMQ zszEcR9TzHLYf cHqhTbC2d3U8Yt2TOP7ue QJ9N4IxZxp1POQouPoiIQ 5heBDgHQxnKy9irRstbBl wLZ8sLDGyumoy IHMqgE2lIZKokEUazNplS Z1qWTVcocvnn718DoLeRR P7YKDvgPGcL7YzbN2iJuJ hGNTaPKLsU8Zk iCJkOBjbI106VNruGtU1O LTxacXlI7TtTRQahJliXv L5g5B2Gl5JoLMkF7ZaV5n 5E5NwThdhoIH+ CP05VAIxQZ14iMQnuYVcx 5tlmOm0SrIbRJFmPOP5cK rhDQqnr3VoTRGbT91zyYW uj4Z4LCDzqXpl dFArKqZofUC2iB7rXHmnp cvfn5lrvnokVaabf8wqmk 16gL96J95yFKytZQHcKVV zMCUiIHZhbGln qw9ntL7nMe7+GUJllTE3a WF7tH9vZyCtAhX1SWfwL5 52FbZljPFqEcwrm4ddm4w bjXr7RpOkKLDc stGzsFmmZPQ0y6OnGa49E 29sIHdpZHRoPSIyMCUiIH CdpLulls0meM6nMu3+PC9 ie3afaf51nT59 dHI+JQAuJXB0zHljAOwsR LVxhT6wYEniCkS2PGDgBf WhcA40xPAeAIdbTg6axFp aqWfeUG6gGDTe shhbd233CkFjo5obMWOki NWxNIxjMZY6B15lk6Q2TP TpFXRwADM8dIM8bT7tlSd nbjogbGVmdDsg chXnjOjrIFymMJrhJ810R OBwlSnnDdJqcQUmV2ygwi AVEY1wPvbezZW+PHRkIHN 0eWxlPSdwYWRk sR4cOVXeU4a7KoKrLgB5M TawX1ZyacY7XCGsyEZdSP ZrhWKYjX0cdvnrt7drssu gIzAwMDAwMDt0 NFt6OUIffAdrZvGlMGL6G sY4QXF6kBAihX5wqLykpt axuQ4oBve+RklOOjwvdGQ +OPSdXDJ3pIwr YRcuVFRavF4cWCXmS8y7K yEfLjE6ILhcA7CpotJ9WG YupQLrKRTqrJDNaV0wclg vp7vhrvvwUuIr HPDqPLx6VMx2CUXaeNiiM lUzQAF3TpN3GRQ7xAAkvP 6shItwfbqinA1eTcf+TVJ OOjwvdGQ+PHRk IJH6gNhpVTyiKPNwcW4uX YQfT9s5SvJrKhU9INsrW0 YnxlD0SPFjrNQxUBShhLR KrY0lheqsg6rg vumsFlRkTBIoLEz5BIn1Q MEkrJinHjBrKDF4TeE7DI V8lPIqcF5xhQbrujdgwD9 wOyc+DHN4DWW0 JH00VB52X9AfBdilbMKbq +PHRhYmxlIHdpZHRoPS ppHUNvAdLdrXcbWI6mWz5 yZGVyLWNvbGxh cHNlOiBj (more content not included)... Normal [facility] Auto Diffon 08-09-2022 Basophils/100 WBC (Bld) 0.5 % Normal 0.0-2.0 [facility] Comment on above: Order Comment: Order Added by Discern Expert. Performed By: #### 1 [id number] #### [facility] [address] [place] [address] Basophils/Leukocytes Auto (Bld) [Pure # fraction] 0.1 E9/L Normal 0.0-0.2 [facility] Comment on above: Order Comment: Order Added by Discern Expert. Performed By: #### 1 [id number] #### [facility] [address] [place] [address] Eosinophils/100 WBC (Bld) 2.7 % Normal 0.0-8.0 [facility] Comment on above: Order Comment: Order Added by [employer]ug[employer] Expert. Performed By: #### 1 [id number] #### [facility] [address] [place] [address] Eosinophils/Leukocytes Auto (Bld) [Pure # fraction] 0.4 E9/L Normal 0.0-0.5 [facility] Comment on above: Order Comment: Order Added by Refugio Expert. Performed By: #### 1 [id number] #### [facility] [address] [place] [address] Lymphocytes/100 WBC (Bld) 12.8 % Low 14.0-50.0 [facility] Comment on above: Order Comment: Order Added by Discern Expert. Performed By: #### 1 [id number] #### [facility] [address] [place] [address] Lymphocytes/Leukocytes Auto (Bld) [Pure # fraction] 2.1 E9/L Normal 1.0-4.0 [facility] Comment on above: Order Comment: Order Added by Discern Expert. Performed By: #### 1 [id number] #### [facility] [address] [place] [address] Monocytes/100 WBC (Bld) 6.4 % Normal 4.0-14.0 [facility] Comment on above: Order Comment: Order Added by Discern Expert. Performed By: #### 1 [id number] #### [facility] [address] [place] [address] Monocytes/Leukocytes Auto (Bld) [Pure # fraction] 1.0 E9/L Normal 0.2-1.0 [facility] Comment on above: Order Comment: Order Added by Discern Expert. Performed By: #### 1 [id number] #### [facility] [address] [place] [address] Neutrophils/100 WBC (Bld) 77.6 % High 36.0-75.0 [facility] Comment on above: Order Comment: Order Added by Discern Expert. Performed By: #### 1 [id number] #### [facility] [address] [place] [address] Neutrophils/Leukocytes Auto (Bld) [Pure # fraction] 12.6 E9/L High 2.0-7.5 [facility] Comment on above: Order Comment: Order Added by Discern Expert. Performed By: #### 1 [id number] #### [facility] [address] [place] [address] BMPon 08-09-2022 Creatinine [Mass/Vol] 1.1 mg/dL Normal 0.5-1.3 [facility] Comment on above: Performed By: #### 1 [id number] #### [facility] [address] [place] [address] Urea nitrogen [Mass/Vol] 18 mg/dL Normal 5-21 [facility] Comment on above: Performed By: #### 1 [id number] #### [facility] [address] [place] [address] Urea nitrogen/Creatinine [Mass ratio] 16 No Units Normal 10-20 [facility] Comment on above: Performed By: #### 1 [id number] #### [facility] [address] [place] [address] Anion gap [Moles/Vol] 13 mmol/L Normal 6-16 [facility] Comment on above: Performed By: #### 1 [id number] #### [facility] [address] [place] [address] Calcium [Mass/Vol] 8.8 mg/dL Low 8.9-11.1 [facility] Comment on above: Performed By: #### 1 [id number] #### [facility] [address] [place] [address] Chloride [Moles/Vol] 101 mmol/L Normal 101-111 [facility] Comment on above: Performed By: #### 1 [id number] #### [facility] [address] [place] [address] CO2 [Moles/Vol] 27 mmol/L Normal 21-[address] [facility] Comment on above: Performed By: #### 1 [id number] #### [facility] [address] [place] [address] Glucose [Mass/Vol] 121 mg/dL Normal 55-199 [facility] Comment on above: Result Comment: If t his glucose result represents a fasting glucose, interpretation should refer to the following reference range: 55-99 mg/dL Performed By: #### 1 [id number] #### [facility] [address] [place] [address] Potassium [Moles/Vol] 3.9 mmol/L Normal 3.5-5.3 [facility] Comment on above: Performed By: #### 1 [id number] #### [facility] [address] [place] [address] Sodium [Moles/Vol] 137 mmol/L Normal 135-145 [facility] Comment on above: Performed By: #### 1 [id number] #### [facility] [address] [place] [address] BNPon 08-09-2022 Int Ctr BNP Pass Normal [facility] Comment on above: Performed By: #### 1 [id number] #### [facility] [address] [place] [address] Natriuretic peptide B (Bld) [Mass/Vol] 19 pg/mL Normal 5-80 [facility] Comment on above: Performed By: #### 1 [id number] #### [facility] [address] [place] [address] Blood Gas Art, with Teresa Bah, [place] 08-09-2022 a/A Ratio Art 75.90 % Normal >=0.80 [facility] Comment on above: Performed By: #### 1 [id number] #### [facility] [address] [place] [address] AaDO2 Art 21.9 mmHg High 5.0-15.0 [facility] Comment on above: Performed By: #### 1 [id number] #### [facility] [address] [place] [address] Allens Test Not Applicable Normal [facility] Comment on above: Performed By: #### 1 [id number] #### [facility] [address] [place] [address] Base Excess Arterial 3.1 mmol/L Normal >=2.8 [facility] Comment on above: Performed By: #### 1 [id number] #### [facility] [address] [place] [address] cCa2+ Art 4.86 mg/dL Normal 4.40-5.30 [facility] Comment on above: Performed By: #### 1 [id number] #### [facility] [address] [place] [address] cCl- Art 105.0 mmol/L Normal 101.0-111.0 [facility] Comment on above: Performed By: #### 1 [id number] #### [facility] [address] [place] [address] cGlu Art 117 mg/dL High 55-99 [facility] Comment on above: Performed By: #### 1 [id number] #### [facility] [address] [place] [address] cK+ Art 4.0 mmol/L Normal 3.5-5.3 [facility] Comment on above: Performed By: #### 1 [id number] #### [facility] [address] [place] [address] cLac Art 1.4 mmol/L Normal .5-2.2 [facility] Comment on above: Performed By: #### 1 [id number] #### [facility] [address] [place] [address] morning caregiver+ Art 142.0 mmol/L Normal 135.0-145.0 [facility] Comment on above: Performed By: #### 1 [id number] #### [facility] [address] [place] [address] Drawn by [employer] Invalid Interpretation Code [facility] Comment on above: Performed By: #### 1 [id number] #### [facility] [address] [place] [address] FCOHb Art 1.0 % Low 1.5-4.9 [facility] Comment on above: Result Comment: Refe rence range Nonsmoker <1.5% Smoker <5.0% Heavy Smoker <9.0% Performed By: #### 1 [id number] #### [facility] [address] [place] [address] FIO2 BG [address] [facility] Comment on above: Performed By: #### 1 [id number] #### [facility] [address] [place] [address] FMetHb Art 0.5 % Normal 0.0-1.9 [facility] Comment on above: Performed By: #### 1 [id number] #### [facility] [address] [place] [address] FO2Hb Art 92.6 % Normal 92.0-100.0 [facility] Comment on above: Performed By: #### 1 [id number] #### [facility] [address] [place] [address] HCO3 (Bld) [Moles/Vol] 27.1 mmol/L High 22.0-26.0 [facility] Comment on above: Performed By: #### 1 [id number] #### [facility] [address] [place] [address] Hemoglobin (Bld) [Mass/Vol] 12.5 g/dL Normal 12.0-16.0 [facility] Comment on above: Performed By: #### 1 [id number] #### [facility] [address] [place] [address] Oxygen saturation in Blood 94.1 % Low 95.0-100.0 [facility] Comment on above: Performed By: #### 1 [id number] #### [facility] [address] [place] [address] P CO2 Arterial 48.9 mmHg High 35.0-45.0 [facility] Comment on above: Performed By: #### 1 [id number] #### [facility] [address] [place] [address] P O2 Arterial 68.8 mmHg Low 80.0-100.0 [facility] Comment on above: Performed By: #### 1 [id number] #### [facility] [address] [place] [address] pH Arterial 7.383 Normal 7.350-7.450 [facility] Comment on above: Performed By: #### 1 [id number] #### [facility] [address] [place] [address] Sample Site R Brachial Normal [facility] Comment on above: Performed By: #### 1 [id number] #### [facility] [address] [place] [address] Sample Type Arterial Draw Normal [facility] Comment on above: Performed By: #### 1 [id number] #### [facility] [address] [place] [address] CBC w/ Auto Diffon Erythrocyte distribution width (RBC) [Ratio] 15.4 % High 10.9-14.2 [facility] Comment on above: Performed By: #### 1 [id number] #### [facility] [address] [place] [address] Hematocrit (Bld) [Volume fraction] 36.9 % Normal 34.0-46.0 [facility] Comment on above: Performed By: #### 1 [id number] #### [facility] [address] [place] [address] Hemoglobin (Bld) [Mass/Vol] 11.8 g/dL Low 12.0-16.0 [facility] Comment on above: Performed By: #### 1 [id number] #### [facility] [address] [place] [address] MCH (RBC) [Entitic mass] 28.0 pg Normal 27.0-34.0 [facility] Comment on above: Performed By: #### 1 [id number] #### [facility] [address] [place] [address] MCHC (RBC) [Mass/Vol] 32.0 g/dL Normal 31.4-36.0 [facility] Comment on above: Performed By: #### 1 [id number] #### [facility] [address] [place] [address] MCV (RBC) [Entitic vol] 87.6 fL Normal 80.0-100.0 [facility] Comment on above: Performed By: #### 1 [id number] #### [facility] [address] [place] [address] Platelet mean volume (Bld) [Entitic vol] 8.4 fL Normal 6.4-10.8 [facility] Comment on above: Performed By: #### 1 [id number] #### [facility] [address] [place] [address] Platelets (Bld) [#/Vol] 238.0 E9/L Normal 150.0-500.0 [facility] Comment on above: Performed By: #### 1 [id number] #### [facility] [address] [place] [address] RBC (Bld) [#/Vol] 4.2 E12/L Low 4.3-5.9 [facility] Comment on above: Performed By: #### 1 [id number] #### [facility] [address] [place] [address] WBC corrected for nucl RBC Auto (Bld) [#/Vol] 16.3 E9/L High 4.0-11.[address] [facility] Comment on above: Result Comment: Franny donato reviewed by LW. Performed By: #### 1 [id number] #### [facility] [address] [place] [address] CHEMISTRYOrdered By: SYSTEM SYSTEM on 08-09-2022 Troponin I.cardiac [Mass/Vol] 7.00 pg/mL Low 10.10 - 27.10 pg/mL [facility] Anion gap [Moles/Vol] 13 mmol/L Normal 6 - 16 mEq/L [facility] Calcium [Mass/Vol] 8.8 mg/dL Low 8.9 - 11. 1 mg/dL [facility] Chloride [Moles/Vol] 101 mmol/L Normal 101 - 1 11 mmol/L [facility] CO2 [Moles/Vol] 27 mmol/L Normal 21 - 31 mmol/L [facility] Creatinine [Mass/Vol] 1.1 mg/dL Normal 0.5 - 1.3 mg/dL [facility] GFR/1.73 sq M.predicted among blacks MDRD (S/P/Bld) [Vol rate/Area] mL/min/1.73 m2 Normal >=59mL/min/1 .73 m2 [facility] Chem S GFR/1.73 sq M.predicted among non-blacks MDRD (S/P/Bld) [Vol rate/Area] 50 mL/min/1.73 m2 Low >=59mL/min/1 .73 m2 [facility] Chem S Glucose [Mass/Vol] 121 mg/dL Normal 55 - 199 mg/dL [facility] Potassium [Moles/Vol] 3.9 mmol/L Normal 3.5 - 5.3 mmol/L [facility] Sodium [Moles/Vol] 137 mmol/L Normal 135 - 145 mmol/L [facility] Troponin I.cardiac [Mass/Vol] 4.00 pg/mL Low 10.10 - 27.10 pg/mL [facility] Urea nitrogen [Mass/Vol] 18 mg/dL Normal 5 - 21 mg/dL [facility] Urea nitrogen/Creatinine [Mass ratio] 16 mg/mg Normal 10 - 20 [facility]isol CHEMISTRYOrdered By: Evelyn Mercado tter on 08-09-2022 Natriuretic peptide B (Bld) [Mass/Vol] 19 pg/mL Normal 5 - 80 pg/mL [facility] HemeManSS COAGULATIONOrdered By: Sagar Castorena on 08-09-2022 aPTT Coag (PPP) [Time] 31.4 s Normal 25.1 - 36.5 second(s) [facility] Auto Coag INR Coag (PPP) [Relative time] 0.9 {INR} Invalid Interpretation Code [facility] Auto Coag PT Coag (PPP) [Time] 10.3 s Normal 9.4 - 1 2.5 second(s) [facility] Auto Coag CTA Cheston 08-09-2022 CTA Chest Exam Date/Time: 08/09/2022 15:14 EDT Reason for Exam: Pulmonary embolism (PE) suspected, high prob;Other (please specify) Report IMPRESSION: The study is negative for pulmonary emboli, aortic dissection, or aneurysm. There are no acute infiltrates or effusions. EXAM: CTA Chest History: Chest pain, SOB shortness of breath, difficulty breathing, chest pain Technique: Multiple contiguous axial images were obtained of the thorax from the thoracic inlet through the upper abdomen during dynamic administration of IV contrast. Sagittal and coronal reformats as well as 3-D MIP projection reformations have been obtained. All CT scans at this facility use dose modulation, iterative reconstruction, and/or weight based dosing when appropriate to reduce radiation dose to as low as reasonably achievable. Comparison: Findings: Visualized portion of the thyroid gland is within normal limits. There is a three-vessel aortic arch. No thoracic aortic aneurysm. Heart size is within normal limits. No significant pericardial effusion. There are no persistent filling defects within the pulmonary arteries. No axillary, mediastinal, or hilar lymphadenopathy. Esophagus is within normal limits. No pulmonary nodule or mass. No consolidation, pleural effusion, or pneumothorax. There is minimal scarring in the left costophrenic recess. Visualized upper abdominal viscera appear within normal limits. There are no acute osseous changes. Report Ordering Provider: Clinton Lucero FINAL REPORT Dictated: 08/09/2022 3:42 pm Antonio CLAUDIO, Phil Shah Signed (Electronic Signature): 08/09/2022 3:42 pm Signed by: Phil Alvarez MD, V. Transcribed by: SRAVANI Technologist: SANTOS Technical Comments GFR (mL/min/1/73m2) 50 Contrast: Isovue 370 Contrast amount in ml's: [address] [facility] Discharge Instructionson Discharge Instructions [id number]# 1.00CD:[address] [facility] ED Clinical Summaryon 2022 ED Clinical Summary [place] [id number] ED Clinical Summary Person Information [facility]: [facility] 62 [facility] : 1960 Sex: Female Language: Yakut PCP: Екатерина Richardson MD Marital Status: Visit Id: Visit Reason: Shortness of breath; SOB Speciality: Acuity: 2 Enc Type: Emergency Med Service: Emergency Arrival: 08/09/2022 13:09:07 Discharge: 08/09/2022 18:01:44 LOS: 000 04:52 Checkin: 08/09/2022 13:09:07 Checkout: 08/09/2022 18:01:44 Dispo Type: Home (Routine DC) EVENTS: Event Name Event Status Request Date/Time Start Date/Time Complete Date/Time Arrive Complete 08/09/2022 13:09:07 08/09/2022 13:09:07 08/09/2022 13:09:07 Document Home Meds Request 08/09/2022 13:09:07 Triage Complete 08/09/2022 13:09:07 08/09/2022 13:13:39 08/09/2022 13:13:39 Bed Assign Complete 08/09/2022 13:09:07 08/09/2022 13:09:07 08/09/2022 13:09:07 Dr Exam Complete 08/09/2022 13:09:07 08/09/2022 13:16:13 08/09/2022 13:16:13 RN Exam Complete 08/09/2022 13:09:07 08/09/2022 14:23:09 08/09/2022 14:23:09 EKG Complete 08/09/2022 13:10:24 08/09/2022 13:11:00 Isolation Screening Request 08/09/2022 13:13:40 Registration Complete 08/09/2022 13:16:13 08/09/2022 13:38:44 08/09/2022 13:38:44 Dr Exam Complete 08/09/2022 13:17:14 08/09/2022 13:17:14 08/09/2022 13:17:14 Reg Complete Request 08/09/2022 13:38:44 Reg Bed Request Complete 08/09/2022 13:38:44 08/09/2022 13:38:44 08/09/2022 13:38:44 Pending Labs Request 08/09/2022 13:51:02 RT Tx/ABG Request 08/09/2022 13:51:02 Lab Inlab 08/09/2022 13:51:02 Meds Admin Complete 08/09/2022 13:51:02 08/09/2022 14:33:51 Patient Care Request 08/09/2022 13:51:02 X-Ray Complete 08/09/2022 13:51:02 08/09/2022 14:12:53 08/09/2022 15:27:40 RT Request 08/09/2022 13:51:02 RT Tx/ABG Request 08/09/2022 13:51:03 RT Tx/ABG Request 08/09/2022 13:51:03 Meds Admin Complete 08/09/2022 13:52:46 08/09/2022 14:17:47 Pending Labs Complete 08/09/2022 14:14:48 08/09/2022 14:14:48 08/09/2022 14:28:49 Lab Complete 08/09/2022 14:14:48 08/09/2022 14:14:48 08/09/2022 14:28:49 Fall Risk Request 08/09/2022 14:23:10 Pending Labs Complete 08/09/2022 14:44:19 08/09/2022 14:44:19 08/09/2022 14:44:28 Lab Complete 08/09/2022 14:44:19 08/09/2022 14:44:19 08/09/2022 14:44:28 Pending Labs Complete 08/09/2022 14:52:44 08/09/2022 14:52:44 08/09/2022 14:52:44 CT Complete 08/09/2022 14:58:57 08/09/2022 15:02:39 08/09/2022 15:14:23 Pending Labs Complete 08/09/2022 15:16:42 08/09/2022 15:16:42 08/09/2022 15:16:42 Wet Read Request 08/09/2022 15:27:40 Meds Admin Complete 08/09/2022 15:57:42 08/09/2022 16:42:12 Discharge Complete 08/09/2022 16:50:46 08/09/2022 18:01:49 08/09/2022 18:01:49 Pending Labs Complete 08/09/2022 16:53:04 08/09/2022 16:53:04 08/09/2022 16:53:04 Transfer Complete 08/09/2022 18:01:49 08/09/2022 18:01:49 08/09/2022 18:01:49 ADDRESS: [address] [id number] PHYS DOC NOTES: MEDICAL INFORMATION: Prescriptions Given: [facility], [address], [place] [id number], [phone] brompheniramine/dextr omethorphan/PSE (Bromfed DM oral syrup) 5 Milliliter By Mouth 4 times a day as needed for cold symptoms. Refills: 0. guaifenesin (Mucinex 600 mg Tab-ER) 1 Tablets By Mouth every 12 hours for 7 Days. Refills: 0. predniSONE (predniSONE 20 mg Tab) 3 Tablets By Mouth every day for 5 Days. Refills: 0. Medications to Continue with No Changes Other Medications albuterol (albuterol HFA 90 mcg/inh MDI) 2 Puffs Inhalation every 4 hours. albuterol (ProAir HFA 90 mcg/inh inhalation aerosol) 2 Puffs Inhalation every 4 hours as needed for wheezing. Refills: 0. busPIRone (busPIRone 10 mg Tab) 1 Tablets By Mouth 3 times a day. cyclobenzaprine (cyclobenzaprine 10 mg Tab) 1 Tablets By Mouth 3 times a day as needed for spasm. hydrochlorothiazide (hydrochlorothiazide 12.5 mg Tab) 1 Tablets By Mouth every day. ibuprofen (ibuprofen 800 mg Tab) 1 Tablets By Mouth 3 times a day as needed Pain 1-3. Non-Formulary Medication (med. marijuana edibles) 1 gummy By Mouth at bedtime. pantoprazole (Pantoprazole [address] Tab) 1 Tablets By Mouth every day. pregabalin (pregabalin 200 mg Cap) 1 Capsules By Mouth 2 times a day. sucralfate (sucralfate 1 g Tab) 1 Tablets By Mouth four times a day (before meals and at bedtime). trazodone (traZODONE 50 mg Tab) 1 Tablets By Mouth once a day (at bedtime). PATIENT EDUCATION INFORMATION: Instructions: Chronic Obstructive Pulmonary Disease Follow up: With: Address: When: Екатерина Richardson [address] [place] [address], [facility] [place] [address] Business (1) In 3 days 08/12/2022 Comments: Call the office of your primary care doctor to arrange for follow-up within the above-stated timeframe. Follow-up with your primary care doctor about this ED visit. You should review your labs, imaging, and diagnoses from this ED visit with your primary care physician. If y (more content not included)... [facility] ED Note-Physicianon 08-10-19 ED Note-Physician Basic Information Time Seen: Clinton Lucero PA-C 08/09/2022 13:16 Chief Complaint Pt has SOB. known PE and Pneumonia. COPD hx. History of Present Illness Patient is a 62-year-old female with history of COPD who presents ED with complaints of cough, congestion, shortness of breath, chest pain over the last week. Patient does report that she has had 2 admissions to [facility] over the last few weeks for pneumonia/COPD exacerbation. Patient is currently on amoxicillin at home, feels that her symptoms are not improving but are in fact worsening. Patient endorses fevers and chills, myalgias. Patient reports her symptoms had not improved much on her last discharge from [facility], and worsening since that time. Patient is not on oxygen at home. Patient also endorses a past history of PE for which she is not anticoagulated due to not be able to afford the medications. Patient also reports a history of anxiety, and believes that some of her shortness of breath and chest pain is currently due to exacerbation of anxiety. Patient reports that she is on Xanax at home for anxiety. Review of Systems Full 10 system ROS performed. Pt denies symptoms except as noted above in the HPI. Physical Exam Vitals & Measurements T: 36.8 ?C(Oral) HR: 70(Peripheral) RR: 18 BP: 107/60 SpO2: 96% HT: 170.18 cm WT: 81.6 kg BMI: 28.18 VITALS: I have reviewed the triage vital signs. GENERAL: Well developed, well appearing adult in no acute distress. NEURO: Alert and oriented. Moves all extremities. Face is symmetric and expressive. EYES: PERRL. No scleral icterus or conjunctival injection. No discharge. HENT: Normocephalic, atraumatic. Hearing is grossly intact. Nares grossly patent and without discharge. Mucous membranes moist. NECK: No JVD. Patient moves neck without restriction. CARDIO: Rhythm regular. Normal rate. No murmur, rub, or gallop. Pulses equal bilaterally in the upper and lower extremity. No lower extremity edema. PULM: Lungs clear to auscultation in all esquivel. No wheezes, rales, or rhonchi. No conversational dyspnea. No splinting, stridor, or accessory muscle use. GI/: Abdomen is soft and non-tender. Normoactive bowel sounds. EXTREMITIES: Symmetric muscle bulk. No joint swelling. No clubbing, cyanosis, or deformity. SKIN: Warm and dry. Normal turgor. No rash or lesions appreciated. PSYCH: Mood, affect, and interaction is appropriate to the setting. Medical Decision Making MEDICAL DECISION MAKING Number and Complexity of Problems Differential Diagnosis: [] [facility] Data External documents reviewed: [] My EKG interpretation: No STEMI, normal QTc My CT interpretation: No acute findings on CTA chest My X-ray interpretation: No acute radiographic abnormalities on chest x-ray My Ultrasound interpretation: [] Decision rules/scores evaluated: Patient heart score 3 indicating low risk of major adverse cardiac event Heart Score for Major Cardiac Event History: Example factors for history - pattern of chest pain, onset, duration, relation with exercise, stress or cold, localization, concominant symptoms. reaction to sublingual nitrates, [] Highly suspicious +2 [] Moderately suspicious +1 [x] Slightly suspicious 0 EKG: [] Significant ST-Depression +2 [x] Non specific repolarization disturbance +1 [] Normal 0 Age: [] >= 65 +2 [x] 45-65 + 1 [] <45 0 Risk Factors: (HLD, HTN, DM, Cigarette Smoking, Pos Family Hx, Obesity) [] >3 risk factors or hx of atheroslerotic disease + 2 [x] 1-2 risk factors + 1 [] No risk factors known 0 Troponin: [] >= 3X normal + 2 [] 1-3X normal + 1 [] <= Normal 0 Discussed with: [] Treatment and Disposition ED Course: Patient's ED for evaluation of chest pain, shortness of breath, cough over the last week and longer. Work-up in ED reviewed and noted. Breathing treatment as well as steroids ordered. Patient is currently on an antibiotic (Augmentin) for pneumonia. No current pneumonia appreciated on chest x-ray or CTA chest. CTA chest was performed due to patient reported history of PE and not on anticoagulation due to inability to afford. No evidence of PE on chest x-ray. Patient oxygenating well on room air throughout stay in the ED. Patient with signs symptoms history most consistent with a COPD exacerbation. Patient was started on steroid here and told to continue with her Augmentin. Patient also given Mucinex and a prescription for cough medicine. Return precautions discussed. Patient questions answered. Patient struck to follow-up with PCP for discussion of her management of her COPD. Patient discharged home. Shared decision making: [] Code status: [] Assessment/Plan COPD exacerbation (J44.1: Chronic obstructive pulmonary disease with (acute) exacerbation) Orders: albuterol-ipratropium , 3 mL, Soln-Inh, Inhalation, Once, Stop date 08/09/22 13:50:00 EDT, STAT, Start date 08/09/22 13:50:00 EDT brompheniramine/dextr omethorphan/PSE, 5 mL, Oral, QID for co (more content not included)... Normal [facility] Comment on above: Result Comment: Elec tronically Signed By: Clinton Lucero PA-C\.br\Date and Time Signed: 08/09/22 19:31 EDT\.br\Electronically Co-Signed By: Arsenio Martin DO\.br\Date and Time Co-Signed: 08/09/22 19:35 EDT ED Patient Education Noteon 08-09-2022 ED Patient Education Note Pulmonary Medicine Chronic Obstructive Pulmonary Disease Chronic obstructive pulmonary disease (COPD) is a long-term (chronic) condition that affects the lungs. COPD is a general term that can be used to describe many different lung problems that cause lung swelling (inflammation) and limit airflow, including chronic bronchitis and emphysema. If you have COPD, your lung function will probably never return to normal. In most cases, it gets worse over time. However, there are steps you can take to slow the progression of the disease and improve your quality of life. What are the causes? This condition may be caused by: ? Smoking. This is the most common cause. ? Certain genes passed down through families. What increases the risk? The following factors may make you more likely to develop this condition: ? Secondhand smoke from cigarettes, pipes, or cigars. ? Exposure to chemicals and other irritants such as fumes and dust in the work environment. ? Chronic lung conditions or infections. What are the signs or symptoms? Symptoms of this condition include: ? Shortness of breath, especially during physical activity. ? Chronic cough with a large amount of thick mucus. Sometimes the cough may not have any mucus (dry cough). ? Wheezing. ? Rapid breaths. ? Dang or bluish discoloration (cyanosis) of the skin, especially in your fingers, toes, or lips. ? Feeling tired (fatigue). ? Weight loss. ? Chest tightness. ? Frequent infections. ? Episodes when breathing symptoms become much worse (exacerbations). ? Swelling in the ankles, feet, or legs. This may occur in later stages of the disease. How is this diagnosed? This condition is diagnosed based on: ? Your medical history. ? A physical exam. You may also have tests, including: ? Lung (pulmonary) function tests. This may include a spirometry test, which measures your ability to exhale properly. ? Chest X-ray. ? CT scan. ? Blood tests. How is this treated? This condition may be treated with: ? Medicines. These may include inhaled rescue medicines to treat acute exacerbations as well as long-term, or maintenance, medicines to prevent flare-ups of COPD. ? Bronchodilators help treat COPD by dilating the airways to allow increased airflow and make your breathing more comfortable. ? Steroids can reduce airway inflammation and help prevent exacerbations. ? Smoking cessation. If you smoke, your health care provider may ask you to quit, and may also recommend therapy or replacement products to help you quit. ? Pulmonary rehabilitation. This may involve working with a team of health care providers and specialists, such as respiratory, occupational, and physical therapists. ? Exercise and physical activity. These are beneficial for nearly all people with COPD. ? Nutrition therapy to gain weight, if you are underweight. ? Oxygen. Supplemental oxygen therapy is only helpful if you have a low oxygen level in your blood (hypoxemia). ? Lung surgery or transplant. ? Palliative care. This is to help people with COPD feel comfortable when treatment is no longer working. Follow these instructions at home: Medicines ? Take kimw-ijk-eegdxas and prescription medicines (inhaled or pills) only as told by your health care provider. ? Talk to your health care provider before taking any cough or allergy medicines. You may need to avoid certain medicines that dry out your airways. Lifestyle ? If you are a smoker, the most important thing that you can do is to stop smoking. Do not use any products that contain nicotine or tobacco, such as cigarettes and e-cigarettes. If you need help quitting, ask your health care provider. Continuing to smoke will cause the disease to progress faster. ? Avoid exposure to things that irritate your lungs, such as smoke, chemicals, and fumes. ? Stay active, but balance activity with periods of rest. Exercise and physical activity will help you maintain your ability to do things you want to do. ? Learn and use relaxation techniques to manage stress and to control your breathing. ? Get the right amount of sleep and get quality sleep. Most adults need 7 or more hours per night. ? Eat healthy foods. Eating smaller, more frequent meals and resting before meals may help you maintain your strength. Controlled breathing Learn and use controlled breathing techniques as directed by your health care provider. Controlled breathing techniques include: ? Pursed lip breathing. Start by breathing in (inhaling) through your nose for 1 second. Then, purse your lips as if you were going to whistle and breathe out (exhale) through the pursed lips for 2 seconds. ? Diaphragmatic breathing. Start by putting one hand on your abdomen just above your waist. Inhale slowly through your nose. The hand on your abdomen should move out. Then purse your lips and exhale slowly. You should be able to feel the hand on your abdomen moving in as you e (more content not included)... Normal [facility] ED Patient Summaryon 023 ED Patient Summary [address] [address] Patient Discharge Instructions Person Information Name: VIVIAN VANN Age: 62 Years Arrival Date: 08/09/2022 13:09:07 Discharge Diagnosis: COPD exacerbation Primary Care Physician: Екатерина Richardson MD Provider Information Primary Provider: Arsenio Martin DO Advanced Manager Enterprise:Clinton Lucero PA-C The exam and treatment you received in the Emergency Department were for an urgent problem and are not intended as complete care. It is important that you follow up with a doctor, nurse practitioner, or physician?s financial legal assistant for ongoing care. If your symptoms become worse or you do not improve as expected and you are unable to reach your usual health care provider, you should return to the Emergency Department. We are available 24 hours a day. VIVIAN VANN has been given the following list of patient education materials, prescriptions and follow-up instructions: Follow-up Instructions: With: Address: When: Екатерина Richardson [address] [place] [address], [place] [address] Business (1) In 3 days 08/12/2022 Comments: Call the office of your primary care doctor to arrange for follow-up within the above-stated timeframe. Follow-up with your primary care doctor about this ED visit. You should review your labs, imaging, and diagnoses from this ED visit with your primary care physician. If you were prescribed medications you should discuss possible side-effects and drug interactions with your pharmacist. Call 911 or go to the nearest Emergency Department if you develop any new or worsening symptoms. In the event that this physician does not participate in your insurance network, please consult with your insurance company to find a nearby participating provider. Patient Education Materials: Chronic Obstructive Pulmonary Disease A MESSAGE TO ALL PATIENTS REGARDING OPIOIDS PRESCRIPTION OPIOIDS: WHAT YOU NEED TO KNOW Prescription opioids can be used to help relieve tffkdhrl-qy-qnzkxm pain and are often prescribed following a surgery or injury, or for certain health conditions. These medications can be an important part of the treatment but also come with serious risks. It is important to work with your healthcare provider to make sure you are getting the safest, most effective care. WHAT ARE THE RISKS AND SIDE EFFECTS OF OPIOID USE? Prescription opioids carry serious risks of addiction and overdose, especially with prolonged use. An opioid overdose, often marked by slowed breathing, can cause sudden . The use of prescription opioids can have a number of side effects as well, even when taken as directed: ? Tolerance?meaning you might need to take more of the medication for the same pain relief ? Physical dependence?meaning you have symptoms of withdrawal when a medication is stopped ? Increased sensitivity to pain ? Constipation ? Nausea, vomiting, and dry mouth ? Sleepiness and dizziness ? Confusion ? Depression ? Low levels of testosterone that can result in lower sex drive, energy, and strength ? Itching and sweating RISKS ARE GREATER WITH: ? History of drug misuse, substance use disorder, or overdose ? Mental health conditions (such as depression or anxiety) ? Sleep apnea ? Older age (65 years and older) ? Avoid alcohol while taking prescription opioids. Also, unless specifically advised by your health care provider, medications to avoid include: ? Benzodiazepines (such as Xanax or Valium) ? Muscle relaxants (such as Soma or Flexeril) ? Hypnotics (such as Ambien or Lunesta) ? Other prescription opioids KNOW YOUR OPTIONS Talk to your health care provider about ways to manage your pain that don?t involve prescription opioids. Some of these options may actually work better and have fewer risks and side effects. Options may include: ? Pain relievers such as acetaminophen, ibuprofen, and naproxen ? Some medication that are also used for depression or seizures ? Physical therapy and exercise ? Cognitive behavioral therapy, a psychological, goal-directed approach, in which patients learn how to modify physical, behavioral, and emotional triggers of pain and stress. IF YOU ARE PRESCRIBED OPIOIDS FOR PAIN: ? Never take opioids in greater amounts or more often than prescribed. ? Follow up with your primary health care provider. o Work together to create a plan on how to manage your pain. o Talk about ways to help manage your pain that don?t involve prescription opioids. o Talk about any and all concerns and side effects. ? Help prevent misuse and abuse o Never sell or share prescription opioids. o Never use another person?s prescription opioids. ? Store prescription opioids in a secure place and out of reach of others (this may include visitors, children, friends, and family). ? Safely disp (more content not included)... [facility] EMS Documentationon 08-10-19 23 EMS Documentation Please click on link to see report [id number] CiX5+prnDQolQUJDcGRmI VJhNtK8WFjoAkGlLG4gdq 1HAFlPT7HzIRGfOLd0Hx0 I PCarRGg0VQEuPY0KR4lqW Es0EtS5Li1WrM0xMIJvwb QpBJKMK29mUichHkMiNDb rIPWfXft5ApUB Fb7dYKMhQMAxRXUaCXNqD CAgICAgICAgICAgICAgIC AgICAgICAgICAgICAgICA gICAgICAgICAg ICAgICAgICAgICAgICAgI CAgICAgDQplbmRvYmoNCg 6KfLLoZf1GZiLeEvFSUgO wMDAwMDAwMzIg HWNzPWVned3VCOGjLBFsU CC5QTPxADAnCLEsQAtqMD GaQGScRSs0UFNpQGFhZK5 NCjAwMDAwMDE3 NVEmQZRaOBXgbw6DXPIkC DAwMTkzNCAwMDAwMCBuDQ miGLJuTWXyXDi4UWAlJHR rSM3KNzIvJYYz MZAlKcJeAJCxNKKyxt3SR DAwMDAwMjMxNSAwMDAwMC GnARscIZTzAZSbVkl8VRT dWMDqDD4BTaTg JNKxDJY4XWmyWLDrRXSiw q2GINZbTMVsFxvzHUNmPO AwMCBuDQowMDAwMDAzMDY bJZHbYEUzOA8C CoUmENQfRYQ9DPAqIGVoJ HHaxn7LFHDlQZHtCbQvJb AwMDAwMCBuDQowMDAwMDA fBLP4PKUzUUNt RM5FAcTlIMUdCIBvNEBtE KSmTPPrex9CTRQtQAAhKX L4SqCmDBFtBQPgWUpnRVH aQYM7TqE3INVu SPXjMW1UKrTcCXYoSZB5A MYfTBRqLNZzmx2VZVSeQH YgWZV5NZPpSBZvQGSaGVt zUMWcJEL6YYR1 TIItOXJbYK5NLyJmPJTkZ TM3VBqhODFfMSJtiv0RNM AwMDAwOTMwMCAwMDAwMCB uDQowMDAwMDQ5 KTijOFRhDKHwCL8CYeFsX TQhJNX9AKRiHEYbOSXqmg 7NdLGbwHwwmh0YFOgSB9a SYIo9QTHOQIM0 GvT6N1G7BqJ3IWmWMFcoO ZQ2UHOXQjO4UGV+CjxGRj VqE1YAVAXRDGSwZofkYTZ MZMQ6MMqkNGr0 NMFrIE2mFx2NgnQ5DAT4N CzeKWcbBz3wsBMzNkVgMC EAG8QtjqHoGArRF1TpgRC kMOMeR5DDSPD6 Jm69IlwwmEbMNAF2CWJIW NucVC3LKuwMMzPzNMvnEb 14O2HAk5T0CyCvW5KJrYh WbbGGXKcwF4uI rFJ1m7tssVoSiMJRyWhqQ GdJcndPalFSQUlqUHNXaE 96qvpZF4MfATo6S2RVYp9 AQZhpFkBtwI2P yElzVYM4lS3cYHBTQCvLU mawEC7FQVDWYWz6RSh+Pi AgICAgICAgICAgICAgICA gICAgICAgICAg ICAgICAgICAgICAgICAgI CAgICAgICAgICAgICAgIC AgICAgICAgICAgICAgICA gICAgICAgICAg ICAgICAgICAgICAgICAgI CAgICAgICAgICAgICAgIC AgICAgICAgICAgICAgICA gICAgICAgICAg ICAgICAgICAgICAgICAgI CAgICAgICAgICAgICAgIC AgICAgICAgICAgICAgICA gICAgICAgICAg ICAgICAgICAgICAgICAgI CAgICAgICAgICAgICAgIC AgICAgICAgICAgICAgICA gICAgICAgICAg ICAgICAgICAgICAgICAgI CAgICAgICAgICAgICAgIC AgICAgICAgICAgICAgICA gICAgICAgICAg ICAgICAgICAgICAgICAgI CAgICAgICAgICAgICAgIC AgICAgICAgICAgICAgICA gICAgICAgICAg ICAgICAgICAgICAgICAgI CAgICAgICAgICAgICAgIC AgICAgICAgICAgICAgICA gICAgICAgICAg ET6El8YcvdK5csVsQBusX ImuQBAQTk7CRUvyBeAzTK 8tbs4DOZnGP26nvYIfSOC hIDIxIDAgUgov J4ZalzFkgDxujmHpItHpP MMUUc3AvUEKXGfhT7V1lC slTCJvMLqsGZHUSf5EXIq rVY6zAHLpPMTk Jf8fDPvxLZZaUQMjPkPrY LLBOf9NfQVcDV5UFALqtQ 9nCj4+DQplbmRvYmoNCg0 KMjQgMCBvYmoN Tyw5Lx2RpKi2FELqI0GaA VNoWMIzo2JyGy6XHA5ixB wrLWP5Ky5ZIUd4Wq8+DQp luOLwTZ3NTnyh I7NuVAKtFUIuZZXxUVhQd XCgAIUpQLYQVIyLgXHaDQ jzpTYDMsAQZzMCEmJQzMC sNrY5SBiRO8Z6 UQcEBzAqw8Y2FQrUVERFT mUtZOjHrGaG3eSMrOvJgf J15ZV2hLsRIGWoIBXR5KF csQoU2YmSFb2L 4Q5ZVV0zs4EpVMZsTDplq lLtVojJSa3IAaDuXQAeQk oFAxn3Ts7Tt460KQ96mdW bNDIgMCBSXQov QTDyxRFHk0npVeMiNRZ3C EUlPpabXHmvLMIuHL99RI ZbTDIbUjafTcJwu6XgF6B uNJo9An9RZ9Bx NZT7IEp7Az0PECHyYnWfQ rMcPNZEYs1QHc4CI1D6aJ LqA8YcS5LIJl9QQhQmVP4 jqx2XJDksEgGo HW2bbx9RTDxJJ3ZDw0ddQ aCuWNS5PJQrZqeaQZxyRq aayIKcGH3AnUL4GSCcU96 bJGouHHDuY7Il EJs9Tk0DOTYrmAZgHEOmK BqUT9tXFqpqW4NnMZzYJ4 xkJjE4ZGGdBIQxTux+Pgo +CavtP3BbkOws ROXfRr4mjSqgNVsrJUCoG R3fumPfuGu+Mj5Qs7CwXV DyWDp5fXFI5FVi8WXgJXC xDQT1NANcrkFO BGkm7JiHtXYeKaOjdESmT 3yoGDGl45pJLDLzFijLz0 urWiYz1UoRCV+GI7FPipJ eUnIers2UUVnt hyLhoGOpNW8NAqRvUM6tp q0CGDsmDvKnMV1zva9TGC vWX1HPRW9Kz0CwNAlGQ0Y LNYGWW0zQWIGR M4wZCBTLF3dXSGWYZ29ME QODE8CWCFOjxNMJT6IuVG GCKm3FQlAiVF3hib2HAIq uAGTpHM9enu6T XXqZL4IHTF1Mn3QsQRaIL 5GgYSHZVp3KGaSoKG2cyv 8STRjfELSxNN7mms9LKKt GA9CBFN9Tq2Ry ZWhZH1YCAWSOW8lMVJJFZ 2dERTZYX1uASFUIQ61USY BVR9DZBLKtxUOBH5HaWJN YHy7LHlBzDG5b ld3FMSwgLXPxTD1vzt8HK LvKE8Leo2RDu617WC1CDv dFVD1gW843vudtyd7ra9W TLUJvbGRNVAov JOLfP5LeODEytNEvowVjJ AyiEHVoAGGyMi7AzlUxKI luZyAvSWRlbnRpdHktSAo jV7TeoIyiRRTs FQonYQSEF5KmRZ5oM16oY WUbVaPpUJEZX2V6nQVnF8 MipeWDBd4UMuVpMG9mql7 MRIdaIVXhQN2w ea8DPMuPZ6Syb4KRu392Y A0ELbcXCA2kS593nahgcp 5ma9XGOJTyoKYILVgpI7u HP8vgeSCsPM2o pfW8QDwzT4KoZTUnlvezF CasAJ95ePP8KVmwIiJbhX E6fcrvONGnf8YuKJmxB6D wcGxlbWVudCAw Cj4+Ym8BSUPBp2uMMA7yc NQfVYJqidQdkQqHJ8ZTZM TNY8QmaeTWVDZkflhggB2 yIDMyIDAgUgov G9GypDqcHOFfL9oHXw8rm EO3eDMaVc5AuQIaDD6Qe7 65Kw6MCTaiMRyiTWMeXP3 iGBx7Kw5VEp2B BlKpDI4qcv3NPSemBkNjQ H3eeq8RVMpKQ0JkO5DmjQ C5XxFeQJW5PAFOQ4VtgWu fwAlryVH4EAXm Rvy2XHeYT6Zru4DjotAjB kIoGlM0Wcg7Qf7CuPGehu GnAAysNn9dxIMNf8eoWu1 dJYCbLKf5FBVa RBdcZX23RGuiBjM3RBZoD vUlAWMbVSPiBW3fWWY2BX 0YF6PsccHAqJdjZnE7PSU lNJOZA3OnupLS FR1hCJ7GOqnUDT0jY151a zgbzx8kn6MPMIYvlCAMBS puRFLszBjiWN7ziHTeIPh kM1GniQEjCdSn CTzrWQbXL2R8cYFzT3Ebt mPYEWPwgavgkN2bBz0+DQ anlkEiQzhXYd2PFmNvBUR mZraRGes1Qc1E hQr6SKUqW0TzBCYqRGBab 7UzMw8BEB3dmQdwNhM1Gt 4+MAlawNTtVH0OOiayWFG UfuYxYEs4Z5mC YvNHKTvAANmywrQuC3QuD 5k2jPyQxDwq5G1yrhXJpy ffX4hlv88O8I1+vKxh5BG QduJFb7I8c9w5 lSM4GYekKAt1DoogUo4l0 BxLoridpwBDY/uRlSXnyV eTBfXOcJBP6gvxGJInAYq nb6g2wTdB79ff vzCADVywquIa+bd40dm4x aVekZts6Yo2HT8YcGYij0 qMYpDZalBdgtn7Efbmj8Y PVDvFb4NsJNOl /3JbCe649oH1iW4hnwEPW Eq4aMFIZlOQtTat7j7ePo FnOV8DiL9nEhVS4x4DnbM Jl9y09eHIT9Kf RvIayawgcodHIYmkChnJi xckc/CyTS8xq3YjTBM+y+ cFuZPgZgdf8GmaSz2VpwF H23bPBTrN21/A wA5SGv3arfmcGn5YGZ3ar 3RyZWFtDQplbmRvYmoNCg 5SZvUfXBZbUpwPMxq7Cs2 NQUAgPs2lkEYn KrmGEMuUM2NbvSEnIRQAB LaCR20FFs6LZAClZS1wGU 58Rx2nxSAwVuW7MYMuVw0 ZW2AuS53yoW1o FW9PMYKgoQf2nO5UBp2Ka XO8aLPcIL7XyCPeBUnnIY 1Laynnw7BjPPH2 (more content not included)... Normal [facility] FT Blood GasesOrdered By: Ra raciel Marx on 08-09-2022 a/A Ratio Art 75.90 % Normal >=0.80% [facility] Resp Auto SS AaDO2 Art 21.9 mm[Hg] High 5.0 - 15.0 mmHg [facility] Resp Auto SS Allens Test Not Applicable (08/09/22 2:03 PM) Normal [facility] Resp Auto SS Base Excess Arterial 3.1 mmol/L Normal >=2.8mmol/L [facility] C Resp Auto SS cCa2+ Art 4.86 mg/dL Normal 4.40 - 5.30 mg/dL FT Resp Auto SS cCl- Art 105.0 mmol/L Normal 101.0 - 111.0 mmol/L FT Resp Auto SS cGlu Art 117 mg/dL High 55 - 99 mg/dL FT Resp Auto SS cK+ Art 4.0 mmol/L Normal 3.5 - 5.3 mmol/L FT Resp Auto SS cLac Art 1.4 mmol/L Normal 0.5 - 2.2 mmol/L [facility] Resp Auto SS morning caregiver+ Art 142.0 mmol/L Normal 135.0 - 145.0 mmol/L [facility] Resp Auto SS Drawn by RLG Invalid Interpretation Code [facility] Resp Auto SS FCOHb Art 1.0 % Low 1.5 - 4.9 % FT Resp Auto SS FIO2 BG 21 Invalid Interpretation Code [facility] Resp Auto SS FMetHb Art 0.5 % Normal 0.0 - 1.9 % FT Resp Auto SS FO2Hb Art 92.6 % Normal 92.0 - 100.0 % FT Resp Auto SS HCO3 (Bld) [Moles/Vol] 27.1 mmol/L High 22.0 - 26.0 mmol/L [facility] Resp Auto SS Hemoglobin (Bld) [Mass/Vol] 12.5 g/dL Normal 12.0 - 16.0 gm/dL [facility] Resp Auto SS P CO2 Arterial 48.9 mm[Hg] High 35.0 - 45.0 mmHg [facility] Resp Auto SS P O2 Arterial 68.8 mm[Hg] Low 80.0 - 100.0 mmHg [facility] Resp Auto SS pH Arterial 7.383 Normal 7.350 - 7.450 [facility] Resp Auto SS Sample Site R Brachial (08/09/22 2:03 PM) Normal [facility] Resp Auto SS Sample Type Arterial Draw (08/09/22 2:03 PM) Normal [facility] Resp Auto SS HEMATOLOGYOrdered By: SYSTEM SYSTEM on 08-09-2022 Basophils/100 WBC (Bld) 0.5 % Normal 0.0 - 2.0 % [facility] HemeAutoSS Basophils/Leukocytes Auto (Bld) [Pure # fraction] 0.1 E9/L Normal 0.0 - 0.2 E9/L [facility] HemeAutoSS Eosinophils/100 WBC (Bld) 2.7 % Normal 0.0 - 8.0 % [facility] HemeAutoSS Eosinophils/Leukocytes Auto (Bld) [Pure # fraction] 0.4 E9/L Normal 0.0 - 0.5 E9/L [facility] HemeAutoSS Lymphocytes/100 WBC (Bld) 12.8 % Low 14.0 - 50.0 % [facility] HemeAutoSS Lymphocytes/Leukocytes Auto (Bld) [Pure # fraction] 2.1 E9/L Normal 1.0 - 4.0 E9/L [facility] HemeAutoSS Monocytes/100 WBC (Bld) 6.4 % Normal 4.0 - 14.0 % [facility] HemeAutoSS Monocytes/Leukocytes Auto (Bld) [Pure # fraction] 1.0 E9/L Normal 0.2 - 1.0 E9/L [facility] HemeAutoSS Neutrophils/100 WBC (Bld) 77.6 % High 36.0 - 75.0 % [facility] HemeAutoSS Neutrophils/Leukocytes Auto (Bld) [Pure # fraction] 12.6 E9/L High 2.0 - 7.5 E9/L [facility] HemeAutoSS HEMATOLOGYOrdered By: Evelyn martínez on 08-09-2022 Erythrocyte distribution width (RBC) [Ratio] 15.4 % High 10.9 - 14.2 % [facility] HemeAutoSS Hematocrit (Bld) [Volume fraction] 36.9 % Normal 34.0 - 46.0 % [facility] HemeAutoSS Hemoglobin (Bld) [Mass/Vol] 11.8 g/dL Low 12.0 - 16.0 gm/dL [facility] HemeAutoSS MCH (RBC) [Entitic mass] 28.0 pg Normal 27.0 - 34.0 pg [facility] HemeAutoSS MCHC (RBC) [Mass/Vol] 32.0 g/dL Normal 31.4 - 36.0 gm/dL [facility] HemeAutoSS MCV (RBC) [Entitic vol] 87.6 fL Normal 80.0 - 100.0 fL [facility] HemeAutoSS Platelet mean volume (Bld) [Entitic vol] 8.4 fL Normal 6.4 - 10.8 fL [facility] HemeAutoSS Platelets (Bld) [#/Vol] 238.0 E9/L Normal 150.0 - 500.0 E9/L [facility] HemeAutoSS RBC (Bld) [#/Vol] 4.2 E12/L Low 4.3 - 5.9 E12/L [facility] HemeAutoSS WBC corrected for nucl RBC Auto (Bld) [#/Vol] 16.3 E9/L High 4.0 - 11.0 E9/L [facility] HemeAutoSS Comment on above: Result Comment: Slid e reviewed by LW. PT & PTTon 08-09-2022 aPTT Coag (PPP) [Time] 31.4 second(s) Normal 25.1-36.5 [facility] Comment on above: Result Comment: Para meter 15 days - 4 weeks 1 - 5 months 6 - 11 months 1 - 5 years 6 - 10 years 11 - 17 years PTT Mean: 35.4 (27.6-45.6) Mean: 33.5 (24.8-40.7) Mean: 32.4 (25.1-40.7) Mean: 31.6 (24.0-39.2) Mean: 31.6 (26.9-38.7) Mean: 31.0 (24.6-38.4) Pediatric Reference ranges were obtained from a study by Haris Garcia et al. prepared from 1437 samples obtained at 7 different centers using the same coagulation reagent and instrumentation as [facility]. Currently there are no coagulation studies available worldwide for children to 14 days, and no normal ranges. Heparin therapeutic range (represented by Anti-Factor Xa activity of 0.2 - 0.4 U/mL) corresponds to PTT of 56.6 - 109.0 sec. Performed By: #### 1 [id number] #### [facility] [address] [place] [address] INR Coag (PPP) [Relative time] 0.9 {INR} Invalid Interpretation Code [facility] Comment on above: Result Comment: INR results are specifically intended to assess patients stabilized on long-term Anticoagulation therapy suggested INR?s ?Less Intensive Anticoagulation? 2.0 ? 3.0 Conventional Range 3.0 ? 4.5 Performed By: #### 1 [id number] #### [facility] [address] [place] [address] PT Coag (PPP) [Time] 10.3 second(s) Normal 9.4-12.5 [facility] Comment on above: Result Comment: 15 d ays - 4 weeks 1 - 5 months 6 -11 months 1- 5 years 6-10 years 11 -17 years Mean: 11.2 (9.5-12.6) Mean: 11.0 (9.7-12.8) Mean: 11.0 (9.8-13.0) Mean: 11.3 (9.9-13.4) Mean: 11.7 (10.0-14.6) Mean: 11.8 (10.0 - 14.1) Pediatric Reference ranges were obtained from a study by Haris Garcia et al. prepared from 1437 samples obtained at 7 different centers using the same coagulation reagent and instrumentation as [facility]. Currently there are no coagulation studies available worldwide for children to 14 days, and no normal ranges. Performed By: #### 1 [id number] #### [facility] [address] [place] [address] Pre-Arrival Noteon Pre-Arrival Note Pre-Arrival Summary Name: , Current Date: 08/09/2022 13:09:29 EDT Gender: Female Date of : Age: 62 Pre-Arrival Type: EMS ETA: 08/09/2022 13:33:00 EDT Primary Care Physician: Presenting Problem: sob Pre-Arrival User: John Martin Referring Source: Location: [place] Completion Date/Time: 08/09/2022 13:03:00 [facility] Emergency Department Pre-Hospital Report Form Vital Signs: Pre-Hospital Report: Treatment in Route: Response to Treatment: Misc. Issues: Normal [facility] Troponin 0 Hr.on 08-09-2022 Troponin I.cardiac [Mass/Vol] 4.00 pg/mL Low 10.10-27.10 [facility] Comment on above: Result Comment: The 95% CI (Confidence Interval) PPV (Positive Predictive Value) for myocardial infarction in females is 38 pg/mL, in males 51 pg/mL. The results should be used in conjunction with clinical conditions of myocardial infarction. ([employer] High Sensitivity Troponin I Instructions For Use, MyTime, December 2017) Performed By: #### 2 [id number], [id number], [id number], [id number], [id number] ####[facility] [address] [place] [address] Troponin 3 Hr.on 08-09-2022 Troponin I.cardiac [Mass/Vol] 7.00 pg/mL Low 10.10-27.10 [facility] Comment on above: Result Comment: The 95% CI (Confidence Interval) PPV (Positive Predictive Value) for myocardial infarction in females is 38 pg/mL, in males 51 pg/mL. The results should be used in conjunction with clinical conditions of myocardial infarction. ([employer] High Sensitivity Troponin I Instructions For Use, MyTime, December 2017) Performed By: #### 1 [id number] #### [facility] [address] [place] [address] XR Chest Single Viewon 08-09 XR Chest Single View Exam Date/Time: 08/09/2022 15:27 EDT Reason for Exam: Cough Report IMPRESSION: There are no acute cardiopulmonary changes. CLINICAL HISTORY: Cough EXAMINATION: XR Chest Single View COMPARISON: Chest x-ray from 03/29/2021 FINDINGS: The cardiomediastinal silhouette is unremarkable. The lungs are free of infiltrates effusions or consolidations. There are no acute osseous changes. Ordering Provider: Clinton Lucero FINAL REPORT Dictated: 08/09/2022 3:38 pm Phil Alvarez MD, V. Signed (Electronic Signature): 08/09/2022 3:38 pm Signed by: Phil Alvarez MD, V. Transcribed by: SRAVANI Technologist: SADIA Technical Comments Radiation Dose: Ka,r in mGy = na DAP = na Normal [facility] eGFRon 08-09-2022 GFR/1.73 sq M.predicted among blacks MDRD (S/P/Bld) [Vol rate/Area] mL/min/{1.73_m2} Normal >=59 [facility] Comment on above: Order Comment: Order added by Discern Expert. Result Comment: eGFR is race adjusted. AA=. Performed By: #### 1 [id number] #### [facility] [address] [place] [address] GFR/1.73 sq M.predicted among non-blacks MDRD (S/P/Bld) [Vol rate/Area] 50 mL/min/1.73 m2 Low >=59 [facility] Comment on above: Order Comment: Order added by Discern Expert. Result Comment: Dietitian Teacher valeria kidney disease could be indicated at eGFR's of less than 60 mL/min/1.73m2. Kidney failure is indicated at less than 15 mL/min/1.73m2. Performed By: #### 1 [id number] #### [facility] [address] [place] [address] CBC W MANUAL DIFFon 08-02-19 23 ATYPICAL LYMPH # Normal [facility] Comment on above: Performed By: #### C ROSARIO ####[facility] [address] [place] [address]Dr. Rosemairelan Yañez ATYPICAL LYMPH % Normal [facility] Comment on above: Performed By: #### C BCMAN ####[facility] [address] [place] [address]Dr. Yilan Yañez BAND # 0.9 103/ul Critically high 0.0-0.3 [facility] Comment on above: Performed By: #### C BCMAN ####[facility] [address] [place] [id number]. Yilan Yañez BAND % 5 % Normal 0-5 [facility] Comment on above: Performed By: #### C BCMAN ####[facility] [address] [place] [address]Dr. Yilan Yañez BASOM # 0.00 103/ul Normal 0.00-0.10 [facility] Comment on above: Performed By: #### C ROSARIO ####[facility] [address] [place] [address]Dr. Nahed Yañez BASOM % 0.0 % Critically low 0.2-2.0 [facility] Comment on above: Performed By: #### C BCISAIAH ####[facility] [address] [place] [id number]. Nahed Yañez BLAST # Normal [facility] Comment on above: Performed By: #### C ROSARIO ####[facility] [address] [place] [id number]. Nahed Yañez BLAST % Normal [facility] Comment on above: Performed By: #### C ROSARIO ####[facility] [address] [place] [address]Dr. Nahed Yañez CORRECTED WBC Normal 4.0-11.0 The [facility] Comment on above: Performed By: #### C ROSARIO ####[facility] [address] [place] [address]Dr. Nahed Yañez EOS # 0.00 103/ul Normal 0.00-0.70 [facility] Comment on above: Performed By: #### C ROSARIO ####[facility] [address] [place] [address]Dr. Nahed Yañez EOS% 0.0 % Critically low 0.9-7.0 [facility] Comment on above: Performed By: #### C ROSARIO ####[facility] [address] [place] [address]Dr. Nahed Yañez HCT 39.5 % Normal 36.0-48.0 [facility] Comment on above: Performed By: #### C ROSARIO ####[facility] [address] [place] [address]Dr. Nahed Yañez HGB 13.0 g/dl Normal 12.0-16.0 [facility] Comment on above: Performed By: #### C ROSARIO ####[facility] [address] [place], [place] [address]Dr. Nahed Yañez LYMPHM # 1.72 103/ul Normal 1.20-3.80 [facility] Comment on above: Performed By: #### C ROSARIO ####[facility] [address] [place], [place] [address]Nx. Nahed Yañez LYMPHM% 10.0 % Critically low 20.5-60.0 [facility] Comment on above: Performed By: #### C ROSARIO ####[facility] [address] [place], [place] [address]Ga. Nahed Yañez MCH 28.7 pg Normal 26.7-34.0 [facility] Comment on above: Performed By: #### C ROSARIO ####[facility] [address] [place] [id number]. Nahed Yañez MCHC 32.9 g/dl Normal 29.9-35.2 [facility] Comment on above: Performed By: #### C ROSARIO ####[facility] [address] [place] [phone]. Nahed Yañez MCV 87.2 fL Normal 81.0-99.0 [facility] Comment on above: Performed By: #### C ROSARIO ####[facility] [address] [place] [phone]. Nahed Yañez METAMYELOCYTE # Normal [facility] Comment on above: Performed By: #### C ROSARIO ####[facility] [address]cex[address] [place] [phone]. Nahed Yañez METAMYELOCYTE % Normal [facility] Comment on above: Performed By: #### C ROSARIO ####[facility] [address] [place] [phone]. Nahed Yañez MONOM# 0.86 103/ul Critically high 0.30-0.80 [facility] Comment on above: Performed By: #### C ROSARIO ####[facility] [address] [place] [phone]. Nahed Yañez MONOM% 5.0 % Normal 1.7-12.0 [facility] Comment on above: Performed By: #### C ROSARIO ####[facility] [address] [place] [phone]. Nahed Yañez MPV 9.8 fL Normal 9.5-13.5 The [facility] Comment on above: Performed By: #### C BCISAIAH ####[facility] [address] [place] [phone]. Nahed Yañez MYELOCYTE # Normal [facility] Comment on above: Performed By: #### C ROSARIO ####[facility] [address] [place], [place] [address]Hm. Nahed Yañez MYELOCYTE % Normal [facility] Comment on above: Performed By: #### C ROSARIO ####[facility] [address] [place] [phone]. Nahed Yañez NRBC Normal [facility] Comment on above: Performed By: #### C ROSARIO ####[facility] [address] [place] [phone]. Nahed Yañez PLT 388 103/ul Normal 150-450 [facility] Comment on above: Performed By: #### C ROSARIO ####[facility] [address] [place] [phone]. Nahed Yañez RBC 4.53 106/ul Normal 4.20-5.40 [facility] Comment on above: Performed By: #### C ROSARIO ####[facility] [address] [place] [phone]. Nahed Yañez RDW 14.4 % Normal 11.0-15.0 [facility] Comment on above: Performed By: #### C ROSARIO ####[facility] [address] [place] [phone]. Nahed Yañez SEG # 13.76 103/ul Critically high 1.40-6.50 [facility] Comment on above: Performed By: #### C RSOARIO ####[facility] [address] [place] [phone]. Nahed Yañez SEG % 80.0 % Critically high 43.0-75.0 [facility] Comment on above: Performed By: #### C ROSARIO ####[facility] [address] [place] [phone]. Nahed Yañez WBC 17.2 103/ul Critically high 4.0-11.0 [facility] Comment on above: Performed By: #### C BCMAN ####[facility] [address] [place] [address]Dr. Nahed Yañez MAGNESIUMon 08-01-2022 Magnesium [Mass/Vol] 2.0 mg/dL Normal 1.8-2.4 [facility] Comment on above: Performed By: #### MG COLE, CMP ####[facility] [address] [place] [address]Dr. Nahed Yañez POINT OF CARE GLUCOSEon 07-13 Glucose [Mass/Vol] 267 mg/dL Critically high 74-106 [facility] Comment on above: Performed By: #### P OCGLUC ####[facility] [address] [place] [address]Dr. Nahed Yañez PROF 14(COMP METB)on 023 Albumin [Mass/Vol] 3.4 g/dL Normal 3.4-5.0 [facility] Comment on above: Performed By: #### MG COLE, CMP ####[facility] [address] [place] [address]Dr. Nahed Yañez Albumin/Globulin [Mass ratio] 0.9 {ratio} Normal [facility] Comment on above: Performed By: #### MG COLE, CMP ####[facility] [address] [place] [address]Dr. Nahed Yañez ALP [Catalytic activity/Vol] 100 U/L Normal 46-116 [facility] Comment on above: Performed By: #### MG COLE, CMP ####[facility] [address] [place] [address]Dr. Nahed Yañez ALT [Catalytic activity/Vol] 19 U/L Normal 14-59 [facility] Comment on above: Performed By: #### MG COLE, CMP ####[facility] Wect[address] [place] [address]Dr. Nahed Yañez Anion gap [Moles/Vol] 12.7 mmol/L Normal [facility] Comment on above: Performed By: #### MG COLE, CMP ####[facility] [address]dth[address] [place] [address]Dr. Nahed Yañez AST [Catalytic activity/Vol] 13 U/L Critically low 15-37 [facility] Comment on above: Performed By: #### MG COLE, CMP ####[facility] [address] [place], [place] [address]Dr. Nahed Yañez Bilirubin [Mass/Vol] 0.4 mg/dL Normal 0.2-1.0 [facility] Comment on above: Performed By: #### MG COLE, CMP ####[facility] [address] [place], [place] [address]Dr. Nahed Yañez Calcium [Mass/Vol] 9.5 mg/dL Normal 8.5-10.1 [facility] Comment on above: Performed By: #### MG COLE, CMP ####[facility] [address] [place], [place] [address]Dr. Nahed Yañez Chloride [Moles/Vol] 100 mmol/L Normal 98-107 [facility] Comment on above: Performed By: #### MG COLE, CMP ####[facility] [address] [place], [place] [address]Dr. Nahed Yañez CO2 [Moles/Vol] 27.1 mmol/L Normal 21.0-32.0 [facility] Comment on above: Performed By: #### MG COLE, CMP ####[facility] [address] [place], [place] [address]Dr. Nahed Yañez Creatinine [Mass/Vol] 1.16 mg/dL Critically high 0.55-1.02 [facility] Comment on above: Performed By: #### MG COLE, CMP ####[facility] [address] [place], [place] [address]Dr. Nahed Yañez EGFR-AF GERMAN 58 mL/min/1.73m2 Critically low >=60 [facility] Comment on above: Performed By: #### MG COLE, CMP ####[facility] [address] [place] [address]Dr. Nahed Yañez EGFR-NON AF GERMAN 47 mL/min/1.73m2 Critically low >=60 [facility] Comment on above: Performed By: #### MG COLE, CMP ####[facility] [address]ohfbj[address] [place] [address]Dr. Nahed Yañez Globulin (S) [Mass/Vol] 3.6 g/dL Normal [facility] Comment on above: Performed By: #### MG COLE, CMP ####[facility] [address]cyeo[address] [place] [address]Dr. Nahed Yañez Glucose [Mass/Vol] 175 mg/dL Critically high 74-106 [facility] Comment on above: Performed By: #### MG COLE, CMP ####[facility] [address]oz[address]oh[address] [place] [address]Dr. Rosemarieashley Yañez Potassium [Moles/Vol] 3.8 mmol/L Normal 3.5-5.1 [facility] Comment on above: Performed By: #### MG COLE, CMP ####[facility] [address] [place] [address]Dr. Nahed Yañez Protein [Mass/Vol] 7.0 g/dL Normal 6.4-8.2 [facility] Comment on above: Performed By: #### MG COLE, CMP ####[facility] [address]oyjyy[address] [place] [address]Dr. Nahed Yañez Sodium [Moles/Vol] 136 mmol/L Normal 136-145 [facility] Comment on above: Performed By: #### MG COLE, CMP ####[facility] [address]ou[address] [place] [address]Dr. Nahed Yañez Urea nitrogen [Mass/Vol] 25.0 mg/dL Critically high 7.0-18.0 [facility] Comment on above: Performed By: #### MG COLE, CMP ####[facility] [address] [place] [address]Dr. Nahed Yañez Urea nitrogen/Creatinine [Mass ratio] 21.6 mg/mg Normal [facility] Comment on above: Performed By: #### T RAFITA MG, CMP ####[facility] [address] [place], [place] [address]Dr. Nahed Yañez THEOPHYLLINEon 08-01-2022 THEOPHYLLINE 17.1 ug/mL Normal 10.0-20.0 [facility] Comment on above: Performed By: #### MG COLE, CMP ####[facility] [address] [place], [place] [address]Dr. Nahed Yañez CBC AUTO DIFFon 07-31-2022 BASO # 0.0 103/ul Normal 0.0-0.1 [facility] Comment on above: Performed By: #### C BC ####[facility] [address] [place], [place] [address]Dr. Nahed Yañez Basophils/100 WBC (Bld) 0.2 % Normal 0.2-2.0 [facility] Comment on above: Performed By: #### C BC ####[facility] [address] [place], [place] [address]Dr. Nahed Yañez EO # 0.0 103/ul Normal 0.0-0.7 [facility] Comment on above: Performed By: #### C BC ####[facility] [address] [place], [place] [address]Dr. Nahed Yañez Eosinophils/100 WBC (Bld) 0.0 % Critically low 0.9-7.0 [facility] Comment on above: Performed By: #### C BC ####[facility] [address] [place], [place] [address]Dr. Nahed Yañez Erythrocyte distribution width (RBC) [Ratio] 14.2 % Normal 11.0-15.0 [facility] Comment on above: Performed By: #### C BC ####[facility] [address] [place], [place] [address]Dr. Nahed Yañez Hematocrit (Bld) [Volume fraction] 36.0 % Normal 36.0-48.0 [facility] Comment on above: Performed By: #### C BC ####[facility] [address] [place] [address]Dr. Nahed Yañez Hemoglobin (Bld) [Mass/Vol] 11.4 g/dL Critically low 12.0-16.0 [facility] Comment on above: Performed By: #### C BC ####[facility] [address] [place] [address]Dr. Nahed Yañez IG # 0.21 10e3/ul Critically high 0.00-0.03 [facility] Comment on above: Performed By: #### C BC ####[facility] [address]cpm[address]fgco[address] [place] [address]Dr. Nahed Yañez IG % 1.8 % Critically high 0.0-0.5 The [facility] Comment on above: Performed By: #### C BC ####[facility] [address]unml[address] [place] [address]Dr. Nahed Yañez LYMPH # 1.3 103/ul Normal 1.2-3.8 [facility] Comment on above: Performed By: #### C BC ####[facility] [address]csv[address] [place] [address]Dr. Nahed Yañez Lymphocytes/100 WBC (Bld) 11.2 % Critically low 20.5-60.0 [facility] Comment on above: Performed By: #### C BC ####[facility] [address] [place] [address]Dr. Nahed Yañez MANUAL DIFF REQ NO Normal [facility] Comment on above: Performed By: #### C BC ####[facility] [address]xtovqr[address] [place] [address]Dr. Nahed Yañez MCH (RBC) [Entitic mass] 27.7 pg Normal 26.7-34.0 [facility] Comment on above: Performed By: #### C BC ####[facility] [address]kbak[address] [place] [address]Dr. Nahed Yañez MCHC (RBC) [Mass/Vol] 31.7 g/dL Normal 29.9-35.2 [facility] Comment on above: Performed By: #### C BC ####[facility] [address]zdwrayxvr[address] [place] [address]Dr. Nahed Yañez MCV (RBC) [Entitic vol] 87.6 fL Normal 81.0-99.0 [facility] Comment on above: Performed By: #### C BC ####[facility] [address]irkphiu[address] [place] [address]Dr. Nahed Yañez MONO # 0.8 103/ul Normal 0.3-0.8 [facility] Comment on above: Performed By: #### C BC ####[facility] Unhzatjzex38[address] [place] [address]Dr. Nahed Yañez Monocytes/100 WBC (Bld) 7.0 % Normal 1.7-12.0 [facility] Comment on above: Performed By: #### C BC ####[facility] Bebywfimsx[address] [place] [address]Dr. Nahed Yañez NEUT # 9.2 103/ul Critically high 1.4-6.5 [facility] Comment on above: Performed By: #### C BC ####[facility] [address] [place], [place] [address]Dr. Nahed Yañez Neutrophils/100 WBC (Bld) 79.8 % Critically high 43.0-75.0 [facility] Comment on above: Performed By: #### C BC ####[facility] [address]ls[address] [place] [phone]. Nahed Yañez Platelet mean volume (Bld) [Entitic vol] 9.8 fL Normal 9.5-13.5 [facility] Comment on above: Performed By: #### C BC ####[facility] [address]eqhxapss[address] [place] [address]Dr. Nahed Yañez PLT 317 103/ul Normal 150-450 [facility] Comment on above: Performed By: #### C BC ####[facility] [address]odhvkxtes[address] [place] [place] [id number]. Nahed Yañez RBC 4.11 106/ul Critically low 4.20-5.40 [facility] Comment on above: Performed By: #### C BC ####[facility] [address] [place] [address]Dr. Nahed Yañez WBC 11.5 103/ul Critically high 4.0-11.0 [facility] Comment on above: Performed By: #### C BC ####[facility] Szdyljcadb[address] [place] [address]Dr. Nahed Yañez MAGNESIUMon 07-31-2022 Magnesium [Mass/Vol] 1.8 mg/dL Normal 1.8-2.4 [facility] Comment on above: Performed By: #### JUDY Castro CMP ####[facility] Oyvpkdvywb4[address] [place] [address]Dr. Nahed Yañez POINT OF CARE GLUCOSEon 07-13 Glucose [Mass/Vol] 217 mg/dL Critically high -106 [facility] Comment on above: Performed By: #### P OCGLUC ####[facility] Pqriqcmszv[address] [place], [place] [address]Dr. Nahed Yañez Glucose [Mass/Vol] 169 mg/dL Critically high -106 [facility] Comment on above: Performed By: #### P OCGLUC ####[facility] Ifmlkqfixa[address] [place], [place] [address]Dr. Nahed Yañez Glucose [Mass/Vol] 297 mg/dL Critically high [address] [place] [address] Comment on above: Performed By: #### P OCGLUC ####[facility] Sybyfjqcqg27[address] [place] [address]Dr. Nahed Yañez Glucose [Mass/Vol] 233 mg/dL Critically high -106 [facility] Comment on above: Performed By: #### P OCGLUC ####[facility] Jqcedewzyh708[address] [place], [place] [address]Dr. Nahed Yañez PROF 14(COMP METB)on 023 Albumin [Mass/Vol] 3.0 g/dL Critically low 3.4-5.0 [facility] Comment on above: Performed By: #### JUDY Castro CMP ####[facility] Dthavmgbyq418[address] [place], [place] [address]Dr. Nahed Yañez Albumin/Globulin [Mass ratio] 0.8 {ratio} Normal [facility] Comment on above: Performed By: #### JUDY Castro CMP ####[facility] Zkpzadtcee[address] [place], [place] [address]Dr. Rosemarieashley Yañez ALP [Catalytic activity/Vol] 83 U/L Normal 46-116 [facility] Comment on above: Performed By: #### JUDY Castro CMP ####[facility] Faadxovntz140[address] [place], [place] [address]Dr. Nahed Yañez ALT [Catalytic activity/Vol] 21 U/L Normal 14-59 [facility] Comment on above: Performed By: #### JUDY Castro CMP ####[facility] Gnfecwbszw157[address] [place], [place] [address]Dr. Nahed Yañez Anion gap [Moles/Vol] 14.8 mmol/L Normal [facility] Comment on above: Performed By: #### JUDY Castro CMP ####[facility] Avrhrzkozs239[address] [place], [place] [address]Dr. Nahed Yañez AST [Catalytic activity/Vol] 13 U/L Critically low 15-37 [facility] Comment on above: Performed By: #### JUDY Castro CMP ####[facility] Bohhkekcvh8[address] [place], [place] [address]Dr. Nahed Yañez Bilirubin [Mass/Vol] 0.2 mg/dL Normal 0.2-1.0 [facility] Comment on above: Performed By: #### JUDY Castro CMP ####[facility] Nevowcszoc3112[address] [place], [place] [address]Dr. Nahed Yañez Calcium [Mass/Vol] 9.2 mg/dL Normal 8.5-10.1 [facility] Comment on above: Performed By: #### JUDY Castro CMP ####[facility] Yuwgcfxtlw720[address] [place], [place] [address]Dr. Nahed Yañez Chloride [Moles/Vol] 101 mmol/L Normal 98-107 [facility] Comment on above: Performed By: #### JUDY Castro CMP ####[facility] Mkozilxiwl919[address] [place], [place] [address]Dr. Nahed Yañez CO2 [Moles/Vol] 26.5 mmol/L Normal 21.0-32.0 [facility] Comment on above: Performed By: #### JUDY Castro, CMP ####[facility] Jxufdyjtsy049[address] [place], [place] [address]Dr. Nahed Yañez Creatinine [Mass/Vol] 1.04 mg/dL Critically high 0.55-1.02 [facility] Comment on above: Performed By: #### JUDY Castro, CMP ####[facility] Niczxywnxc211[address] [place], [place] [address]Dr. Nahed Yañez EGFR-AF GERMAN >60 Normal >=60 [facility] Comment on above: Performed By: #### JUDY Castro CMP ####[facility] Buxdbmnyus575[address] [place], [place] [address]Dr. Nahed Yañez EGFR-NON AF GERMAN 54 mL/min/1.73m2 Critically low >=60 [facility] Comment on above: Performed By: #### JUDY Castro CMP ####[facility] Abkijbwthh029[address] [place], [place] [address]Dr. Nahed Yañez Globulin (S) [Mass/Vol] 3.6 g/dL Normal [facility] Comment on above: Performed By: #### JUDY Castro, CMP ####[facility] Jvsvgtebig627[address] [place], [place] [address]Dr. Nahed Yañez Glucose [Mass/Vol] 171 mg/dL Critically high 74-106 [facility] Comment on above: Performed By: #### JUDY Castro, CMP ####[facility] Xywzrziwed929[address] [place], [place] [address]Dr. Nahed Yañez Potassium [Moles/Vol] 3.3 mmol/L Critically low 3.5-5.1 [facility] Comment on above: Performed By: #### JUDY Castro CMP ####[facility] Bpcmdkicxq5950[address] [place], [place] [address]Dr. Nahed Yañez Protein [Mass/Vol] 6.6 g/dL Normal 6.4-8.2 [facility] Comment on above: Performed By: #### JUDY Castro CMP ####[facility] Ajzfqtrxtp847[address] [place], [place] [address]Dr. Nahed Yañez Sodium [Moles/Vol] 139 mmol/L Normal 136-145 [facility] Comment on above: Performed By: #### JUDY Castro CMP ####[facility] Wnkwbkkwab305[address] [place], [place] [address]Dr. Nahed Yañez Urea nitrogen [Mass/Vol] 23.0 mg/dL Critically high 7.0-18.0 [facility] Comment on above: Performed By: #### JUDY Castro CMP ####[facility] Ydswfiqfpu4560[address] [place], [place] [address]Dr. Nahed Yañez Urea nitrogen/Creatinine [Mass ratio] 22.1 mg/mg Normal [facility] Comment on above: Performed By: #### JUDY Castro CMP ####[facility] Ttuelbeixt170[address] [place], [place] [address]Dr. Nahed Yañez THEOPHYLLINEon 07-31-2022 THEOPHYLLINE 14.2 ug/mL Normal 10.0-20.0 [facility] Comment on above: Performed By: #### JUDY Castro CMP ####[facility] Wjxjdtmvri5[address] [place], [place] [address]Dr. Nahed Yañez BLOOD CULTURE ID PANELon A. baumannii Not detected Normal NOT DETECTED [facility] Comment on above: Performed By: #### B CID2 ####[facility] Jxwvjubsyz49[address] [place], [place] [address]Dr. Nahed Yañez Bacteriodes fragilis Not detected Normal NOT DETECTED [facility] Comment on above: Performed By: #### B CID2 ####[facility] Gnnonntyvd587498 [address] [place], [place] [address]Dr. Nahed Yañez BCID CONTROLS PASSED Normal [facility] Comment on above: Performed By: #### B CID2 ####[facility] Jktcyelegr786[address] [place], [place] [address]Dr. Nahed Yañez BCIDBTHD BLOOD CULTURE BOTTLE INFORMATION Normal [facility] Comment on above: Performed By: #### B CID2 ####[facility] Gttysnfgme[address] [place] [address]Dr. Nahed Yañez BCIDHD1 ANTIMICROBIAL RESISTANCE GENES Normal [facility] Comment on above: Performed By: #### B CID2 ####[facility] Asajmtyczv[address] [place] [address]Dr. Nahed Yañez BCIDHD2 SEE BELOW [facility] Comment on above: Result Comment: Note : Antimicrobial resitance can occur via multiple mechanisms. A Not Detected result for the [employer] antomicrobial resistance gene assays does not indicate antimicrobial susceptibility. Subculturing is required for species identification and susceptibility testing of isolates. Performed By: #### B CID2 ####[facility] Usrlkaceys[address] [place], [place] [address]Dr. Nahed Yañez BCIDHD3 Positive [facility] Comment on above: Performed By: #### B CID2 ####[facility] Pdnzxqatfm685[address] [place], [place] [address]Dr. Nahed Yañez BCIDHD4 Negative Normal [facility] Comment on above: Performed By: #### B CID2 ####[facility] Jqquopnozl1810[address] [place], [place] [address]Dr. Nahed Yañez BCIDHD5 YEAST Normal [facility] Comment on above: Performed By: #### B CID2 ####[facility] Kiewwgmytk77[address] [place], [place] [address]Dr. Rosemarieashley Yañez Bottle Set: Set 2 [facility] Comment on above: Performed By: #### B CID2 ####[facility] Vtmzlyxyvz5790[address] [place], [place] [address]Dr. Nahed Yañez Bottle: Pediatric Normal [facility] Comment on above: Performed By: #### B CID2 ####[facility] Zmvcxpxvuz7915[address] [place], [place] [address]Dr. Yiashley Yañez C. neoformans/gattii Not detected Normal NOT DETECTED [facility] Comment on above: Performed By: #### B CID2 ####[facility] Arocktcnym[address] [place], [place] [address]Dr. Yiashley Yañez Sil albicans Not detected Normal NOT DETECTED [facility] Comment on above: Performed By: #### B CID2 ####[facility] Mhinmytpzj444[address] [place], [place] [address]Dr. Yilan Yañez Sil auris Not detected Normal NOT DETECTED [facility] Comment on above: Performed By: #### B CID2 ####[facility] Swggwauzrh4[address] [place] [address]Dr. Yilan Yañez Sil glabrata Not detected Normal NOT DETECTED [facility] Comment on above: Performed By: #### B CID2 ####[facility] Ehhssrviom409[address] [place], [place] [address]Dr. Yilan Yañez Sil Krusei Not detected Normal NOT DETECTED [facility] Comment on above: Performed By: #### B CID2 ####[facility] Wivtdsyiyx186[address] [place], [place] [address]Dr. Yilan Yañez Sil Parapsilosis Not detected Normal NOT DETECTED [facility] Comment on above: Performed By: #### B CID2 ####[facility] Gklpsxtwtx928[address] [place], [place] [address]Dr. Yilan Yañez Sil Tropicalis Not detected Normal NOT DETECTED [facility] Comment on above: Performed By: #### B CID2 ####[facility] Hjfvhonryd1260[address] [place], [place] [address]Dr. Nahed Yañez CTX-M Resistant Gene Not Applicable Normal NOT DETECTE D [facility] Comment on above: Performed By: #### B CID2 ####[facility] Umlxvuvkzo608[address] [place], [place] [address]Dr. Yilan Yañez E. Cloacae complex Not detected Normal NOT DETECTED [facility] Comment on above: Performed By: #### B CID2 ####[facility] Fifftwjgle4835[address] [place], [place] [address]Dr. Yilan Yañez E. faecalis Not detected Normal NOT DETECTED [facility] Comment on above: Performed By: #### B CID2 ####[facility] Blihwyxmns959[address] [place], [place] [address]Dr. Yilan Yañez E. faecium Not detected Normal NOT DETECTED The [facility] Comment on above: Performed By: #### B CID2 ####[facility] Tjjvnvkrtf3790[address] [place], [place] [address]Dr. Nahed Yañez Enterobacteriaceae Not detected Normal NOT DETECTED [facility] Comment on above: Performed By: #### B CID2 ####[facility] Awblsqaauy0585[address] [place], [place] [address]Dr. Nahed Yañez Escherichia coli Not detected Normal NOT DETECTED [facility] Comment on above: Performed By: #### B CID2 ####[facility] Lmzvvzrphu1770[address] [place], [place] [address]Dr. Nahed Yañez H. influenzae Not detected Normal NOT DETECTED [facility] Comment on above: Performed By: #### B CID2 ####[facility] Nlujkdbcdg1255[address] [place], [place] [address]Dr. Nahed Yañez IMP Resistant Gene Not Applicable Normal NOT DETECTED [facility] Comment on above: Performed By: #### B CID2 ####[facility] Ewgvhjzafs118[address] [place], [place] [address]Dr. Nahed Yañez K. oxytoca Not detected Normal NOT DETECTED The [facility] Comment on above: Performed By: #### B CID2 ####[facility] Xotmzpyucs27299[address] [place], [place] [address]Dr. Nahed Yañez K. pneumoniae Not detected Normal NOT DETECTED [facility] Comment on above: Performed By: #### B CID2 ####[facility] Rsvlawjpbf473[address] [place], [place] [address]Dr. Nahed Yañez Klebsiella aerogenes Not detected Normal NOT DETECTED [facility] Comment on above: Performed By: #### B CID2 ####[facility] Amrwgkzpxb1967[address] [place], [place] [address]Dr. Nahed Yañez KPC Resistant Gene Not detected Normal NOT DETECTED [facility] Comment on above: Performed By: #### B CID2 ####[facility] Cddvaghzpp55299[address] [place], [place] [address]Dr. Nahed Yañez List. monocytogenes Not detected Normal NOT DETECTED [facility] Comment on above: Performed By: #### B CID2 ####[facility] Ylqupmvjop006[address] [place], [place] [address]Dr. Nahed Yañez Mcr-1 Resistant Gene Not Applicable Normal NOT DETECTE D [facility] Comment on above: Performed By: #### B CID2 ####[facility] Tleybjiafk8890[address] [place], [place] [address]Dr. Yilan Yañez mecA/C Not Applicable Normal NOT DETECTED [facility] Comment on above: Performed By: #### B CID2 ####[facility] Alzopkjyxz174[address] [place], [place] [address]Dr. Nahed Yañez mecA/C MREJ Not Applicable Normal NOT DETECTED [facility] Comment on above: Performed By: #### B CID2 ####[facility] Afpkzpasju7350[address] [place], [place] [address]Dr. Nahed Otilio N. meningitidis Not detected Normal NOT DETECTED [facility] Comment on above: Performed By: #### B CID2 ####[facility] Fqlpvazuif8433[address] [place], [place] [address]Dr. Nahed Yañez NDM Resistant Gene Not Applicable Normal NOT DETECTED [facility] Comment on above: Performed By: #### B CID2 ####[facility] Uibnjavibs6514[address] [place], [place] [address]Dr. Nahed Yañez Oxa-48-like Not Applicable Normal NOT DETECTED [facility] Comment on above: Performed By: #### B CID2 ####[facility] Slcsasiazx211498 [address] [place], [place] [address]Dr. Nahed Otilio Proteus Not detected Normal NOT DETECTED The [facility] Comment on above: Performed By: #### B CID2 ####[facility] Fgqbdjlgxi227[address] [place], [place] [address]Dr. Nahed Yañez Pseud. aeruginosa Not detected Normal NOT DETECTED [facility] Comment on above: Performed By: #### B CID2 ####[facility] Crynrzsqgq120[address] [place], [place] [address]Dr. Nahed Yañez S. maltophilia Not detected Normal NOT DETECTED [facility] Comment on above: Performed By: #### B CID2 ####[facility] Zywymrtyfk20[address] [place] [id number]. Rosemarieashley Yañez Salmonella Not detected Normal NOT DETECTED The [facility] Comment on above: Performed By: #### B CID2 ####[facility] Xrlrzruffp9423 [place] [address]Dr. Nahed Yañez Seratia marcescens Not detected Normal NOT DETECTED [facility] Comment on above: Performed By: #### B CID2 ####[facility] Vjdpgdqgzf76[address] [place], [place] [address]Dr. Nahed Yañez Site: R AC Normal [facility] Comment on above: Performed By: #### B CID2 ####[facility] Qmpwcvpgdr300[address] [place], [place] [address]Dr. Nahed Yañez Staph. aureus Not detected Normal NOT DETECTED [facility] Comment on above: Performed By: #### B CID2 ####[facility] Zltsresuzq227[address] [place], [place] [address]Dr. Nahed Yañez Staph. epidermidis Not detected Normal NOT DETECTED [facility] Comment on above: Performed By: #### B CID2 ####[facility] Davwigmjll[address] [place], [place] [address]Dr. Nahed Yañez Staph. lugdunensis Not detected Normal NOT DETECTED [facility] Comment on above: Performed By: #### B CID2 ####[facility] Cpkoxtgahb465[address] [place], [place] [address]Dr. Nahed Yañez Staphylococcus Detected Critically abnormal NOT DETECTED [facility] Comment on above: Performed By: #### B CID2 ####[facility] Sesplsjtqa3047[address] [place], [place] [address]Dr. aNhed Yañez Strep. agalactiae Not detected Normal NOT DETECTED [facility] Comment on above: Performed By: #### B CID2 ####[facility] Cafahjwbbv708[address] [place], [place] [address]Dr. Nahed Yañez Strep. pneumoniae Not detected Normal NOT DETECTED [facility] Comment on above: Performed By: #### B CID2 ####[facility] Ehabsudory675[address] [place], [place] [address]Dr. Nahed Yañez Strep. pyogenes Not detected Normal NOT DETECTED [facility] Comment on above: Performed By: #### B CID2 ####[facility] Urnywvxkcq67[address] [place] [address]Dr. Nahed Yañez Streptococcus Not detected Normal NOT DETECTED [facility] Comment on above: Performed By: #### B CID2 ####[facility] Fmhqaxbsht1754 [place] [address]Dr. Nahed Yañez Tucker/B Resist. Gene Not detected Normal NOT DETECTED [facility] Comment on above: Performed By: #### B CID2 ####[facility] Nvdqquwzgo85[address] [place], [place] [address]Dr. Nahed Yañez VIM Resistant Gene Not Applicable Normal NOT DETECTED [facility] Comment on above: Performed By: #### B CID2 ####[facility] Eumdsfjxgw7119 [place] [address]Dr. Nahed Yañez CARDIAC FRANCISCO 3-6on 3 CK [Catalytic activity/Vol] 25 U/L Critically low 26-192 [facility] Comment on above: Performed By: #### C MREP ####[facility] Xajjkgzjbx[address] [place], [place] [address]Dr. Nahed Yañez CK.MB [Mass/Vol] ng/mL Normal <=3.60 [facility] Comment on above: Performed By: #### C MREP ####[facility] Iqbsasamnj94[address] [place], [place] [address]Dr. Nahed Yañez HSTROP 35.8 pg/mL Normal 4.0-51.3 [facility] Comment on above: Result Comment: CUT- OFF POINTS HAVE BEEN ESTABLISHED BASED ON THE FOURTH UNIVERSAL DEFINITIONS OF MYOCARDIALINFARCTION. THE UPPER REFERENCE LIMIT (URL) OF TROPONIN, DEFINED THE 99TH PERCENTILE OFcTnI DISTRIBUTION IN A REFERENCE POPULATION, HAS BEEN CONFIRMED THE DECISION THRESHOLDFOR CT DIAGNOSIS. Performed By: #### C MREP ####[facility] Zyqfgsasdr[address] [place], [place] [address]Dr. Nahed Yañez CK [Catalytic activity/Vol] 28 U/L Normal 26-192 [facility] Comment on above: Performed By: #### C MREP ####[facility] Otoddfwwnj[address] [place] [id number]. Nahed Otilio CK.MB [Mass/Vol] ng/mL Normal <=3.60 [facility] Comment on above: Performed By: #### C MREP ####[facility] Uhqvnilokk3174 [place] [address]Dr. Nahed Yañez HSTROP 36.8 pg/mL Normal 4.0-51.3 [facility] Comment on above: Result Comment: CUT- OFF POINTS HAVE BEEN ESTABLISHED BASED ON THE FOURTH UNIVERSAL DEFINITIONS OF MYOCARDIALINFARCTION. THE UPPER REFERENCE LIMIT (URL) OF TROPONIN, DEFINED THE 99TH PERCENTILE OFcTnI DISTRIBUTION IN A REFERENCE POPULATION, HAS BEEN CONFIRMED THE DECISION THRESHOLDFOR CT DIAGNOSIS. Performed By: #### C MREP ####[facility] Cyaeeqdkia6234 [place] [address]Dr. Nahed Otilio CBC AUTO DIFFon 07-30-2022 BASO # 0.0 103/ul Normal 0.0-0.1 [facility] Comment on above: Performed By: #### C BC ####[facility] Hmgyatbjhw[address] [place] [address]Dr. Rosemarieashley Yañez Basophils/100 WBC (Bld) 0.1 % Critically low 0.2-2.0 [facility] Comment on above: Performed By: #### C BC ####[facility] Vfkqucrwql5[address] [place] [address]Dr. Rosemarieashley Yañez EO # 0.0 103/ul Normal 0.0-0.7 [facility] Comment on above: Performed By: #### C BC ####[facility] Trhpjnmaly5027 [place] [address]Dr. Rosemarieashley Yañez Eosinophils/100 WBC (Bld) 0.0 % Critically low 0.9-7.0 [facility] Comment on above: Performed By: #### C BC ####[facility] Wslsyjorio[address] [place], [place] [address]Dr. Nahed Yañez Erythrocyte distribution width (RBC) [Ratio] 14.4 % Normal 11.0-15.0 [facility] Comment on above: Performed By: #### C BC ####[facility] Aajtipumkp8001 [place] [address]Dr. Nahed Yañez Hematocrit (Bld) [Volume fraction] 37.7 % Normal 36.0-48.0 [facility] Comment on above: Performed By: #### C BC ####[facility] Qfyacqbpie4229 [place] [address]Dr. Nahed Yañez Hemoglobin (Bld) [Mass/Vol] 12.1 g/dL Normal 12.0-16.0 [facility] Comment on above: Performed By: #### C BC ####[facility] Caizclfgus[address] [place], [place] [address]DrShaun Yañez IG # 0.07 10e3/ul Critically high 0.00-0.03 [facility] Comment on above: Performed By: #### C BC ####[facility] Dialksgqeb009[address] [place], [place] [address]Dr. Nahed Yañez IG % 0.5 % Normal 0.0-0.5 [facility] Comment on above: Performed By: #### C BC ####[facility] Gnfiepqpeu[address] [place], [place] [address]DrShaun Yañez LYMPH # 1.0 103/ul Critically low 1.2-3.8 The [facility] Comment on above: Performed By: #### C BC ####[facility] Lwgrrixrbl265[address] [place], [place] [address]DrShaun Yañez Lymphocytes/100 WBC (Bld) 7.6 % Critically low 20.5-60.0 [facility] Comment on above: Performed By: #### C BC ####[facility] Fcbcdgrltx25[address] [place], [place] [address]DrShaun Yañez MANUAL DIFF REQ NO Normal [facility] Comment on above: Performed By: #### C BC ####[facility] Icolwjtlqv40[address] [place] [address]Dr. Nahed Yañez MCH (RBC) [Entitic mass] 28.8 pg Normal 26.7-34.0 [facility] Comment on above: Performed By: #### C BC ####[facility] Ttgggcitvy[address]5 [place] [address]DrShaun Yañez MCHC (RBC) [Mass/Vol] 32.1 g/dL Normal 29.9-35.2 [facility] Comment on above: Performed By: #### C BC ####[facility] [facility] [address]zosnxu[address] [place], [place] [address]DrShaun Yañez MCV (RBC) [Entitic vol] 89.8 fL Normal 81.0-99.0 [facility] Comment on above: Performed By: #### C BC ####[facility] Lpjhzqtetv[address] [place], [place] [address]DrShaun Yañez MONO # 0.2 103/ul Critically low 0.3-0.8 The [facility] Comment on above: Performed By: #### C BC ####[facility] Fpihxsaswv[address] [place], [place] [address]DrShaun Yañez Monocytes/100 WBC (Bld) 1.5 % Critically low 1.7-12.0 [facility] Comment on above: Performed By: #### C BC ####[facility] Aodetlqqrs[address] [place], [place] [address]DrShaun Yañez NEUT # 11.7 103/ul Critically high 1.4-6.5 The [facility] Comment on above: Performed By: #### C BC ####[facility] Xceikuactb97[address] [place], [place] [address]DrShaun Yañez Neutrophils/100 WBC (Bld) 90.3 % Critically high 43.0-75.0 [facility] Comment on above: Performed By: #### C BC ####[facility] Ojuizdarkp[address] [place], [place] [address]DrShaun Yañez Platelet mean volume (Bld) [Entitic vol] 9.9 fL Normal 9.5-13.5 [facility] Comment on above: Performed By: #### C BC ####[facility] Fahwwdoupv[address] [place], [place] [address]DrShaun Yañez PLT 319 103/ul Normal 150-450 [facility] Comment on above: Performed By: #### C BC ####[facility] Dduhpfnxul[address] [place] [id number]. Nahed Yañez RBC 4.20 106/ul Normal 4.20-5.40 [facility] Comment on above: Performed By: #### C BC ####[facility] Ap[address]chsbjf[address] [place] [id number]. Nahed Yañez WBC 13.0 103/ul Critically high 4.0-11.0 [facility] Comment on above: Performed By: #### C BC ####[facility] Lledtnedwp6[address] [place] [id number]. Nahed Yañez CULTURE BLOODon 07-30-2022 Microscopic examination of blood, culture Culture Observations: NO GROWTH AT 5 DAYS. Normal [facility] Comment on above: Performed By: #### B LDCX1 ####[facility] Rmtat[address]kuk[address] [place], [place] [id number]. Nahed Yañez CULTURE SPUTUMon 07-30-2022 CULTURE SPUTUM Culture Observations : NORMAL RESPIRATORY MIGUEL. Normal [facility] Comment on above: Performed By: #### S PUTCX ####[facility] Vovfyyghhe[address] [place], [place] [id number]. Nahed Yañez CULTURE URINEon 07-30-2022 CULTURE URINE Culture Observations : MODERATE GROWTH OF MIXED GENITAL MIGUEL. NO POTENTIAL PATHOGENS SEEN. Normal [facility] Comment on above: Performed By: #### U RCX ####[facility] Yexolsnjlh147[address] [place], [place] [id number]. Nahed Yañez Covid-19 PCR (CVDTBH)on 07-12 SARS-CoV-2 (COVID-19) RNA MIRNA+probe Ql (Unsp spec) Not detected Normal NOT DETECTED [facility] Comment on above: Result Comment: When diagnostic testing is negative, the possibility of a false negative should be considered inthe context of a patient's recent exposures and the presence of clinical signs and symptomsconsistent with SARS-CoV-2.This test is not yet approved or cleared by the [place] FDA. When there are no FDA-approved or cleared tests available, and other criteria are met, FDA can make tests available under an emergency access mechanism called an Emergency Use Authorization (EUA). The EUA for this test is supported by the [place] of Health and Human Service's declaration that circumstances exist to justify the emergency use of in vitro diagnostics for the detection and/or diagnosis of the virus that causes COVID-19. This EUA will remain in effect for the duration of the COVID-19 declaration justifying emergency of IVDs, unless it is terminated or revoked by the FDA (after which the test may no longer be used). Performed By: #### C VDTB ####[facility] Sfpjkrhofz[address] [place], [place] [address]Dr. Nahed Yañez ER URINE PROFILEon 3 Bilirubin Ql (U) Negative Normal NEGATIVE [facility] Comment on above: Performed By: #### Isidoro ALCARAZ UMICRO ####[facility] Zmxlnnzybr1734[address] [place], [place] [address]Dr. Nahed Yañez Clarity (U) CLEAR Normal CLEAR [facility] Comment on above: Performed By: #### Isidoro ALCARAZ UMICRO ####[facility] Rcdtsibhfl2526[address] [place], [place] [address]Dr. Nahed Yañez Color (U) LT. YELLOW Normal YELLOW [facility] Comment on above: Performed By: #### Isidoro ALCARAZ UMICRO ####[facility] Dlnghhdxer294[address] [place], [place] [address]Dr. Nahed Yañez ERUAHD A micrscopic examination will be performed if indicated. Normal [facility] Comment on above: Performed By: #### Isidoro ALCARAZ UMICRO ####[facility] Nncwtewbob50[address] [place], [place] [address]Dr. Nahed Yañez Glucose Ql (U) 500 mg/dl Abnormal NEGATIVE The [facility] Comment on above: Performed By: #### Isidoro ALCARAZ UMICRO ####[facility] Yspnoljcsj455[address] [place], [place] [address]Dr. Nahed Yañez Hemoglobin Ql (U) Negative Normal NEGATIVE The [facility] Comment on above: Performed By: #### YARELIS DOVE ####[facility] [address] [place] [address]Dr. Nahed Yañez Ketones Ql (U) Negative Normal NEGATIVE The [facility] Comment on above: Performed By: #### YARELIS DOVE ####[facility] Tshrssbqxw6[address] [place] [address]Dr. Nahed Yañez LEUKOCYTES TRACE Abnormal NEGATIVE [facility] Comment on above: Performed By: #### YARELIS DOVE ####[facility] Firsxkeegd0080[address] [place], [place] [address]Dr. Nahed Yañez Nitrite Ql (U) Negative Normal NEGATIVE [facility] Comment on above: Performed By: #### YARELIS DOVE ####[facility] Szstfpnkah[address] [place], [place] [address]Dr. Nahed Yañez pH (U) 6.0 [pH] Normal 5-9 [facility] Comment on above: Performed By: #### YARELIS DOVE ####[facility] Jjapgowjvw[address] [place], [place] [address]Dr. Nahed Yañez SPEC GRAVITY >=1.030 Abnormal 1.005-<=1.02 5 [facility] Comment on above: Performed By: #### YARELIS DOVE ####[facility] Ydrmjujfic154[address] [place], [place] [address]Dr. Nahed Yañez UA PROTEIN Negative Normal NEGATIVE/ TRACE [facility] Comment on above: Performed By: #### YARELIS DOVE ####[facility] Ewwkvffpqg5525[address] [place], [place] [address]Dr. Nahed Yañez UR MICRO IND INDICATED Normal [facility] Comment on above: Performed By: #### YARELIS DOVE ####[facility] Qpnqxjsbne9417[address] [place], [place] [address]Dr. Nahed Yañez Urobilinogen Qn (U) 0.2 {Alem'U}/dL Normal 0.2 - 1. 0 [facility] Comment on above: Performed By: #### YARELIS DOVE ####[facility] Htaypnvqhq[address] [place], [place] [address]Dr. Nahed Yañez INFLUENZA A AND B AGon 07-30 INFLUANEGH SEE BELOW Normal [facility] Comment on above: Result Comment: Nega tive for Flu A protein angiten. Infection due to Flu A cannot be ruled out. Flu A angiten in the sample may be below the detection limit of the test. Performed By: #### I NFLUAB ####[facility] Dywqklulkq[address] [place], [place] [address]Dr. Nahed Yañez INFLUBNEGH SEE BELOW Normal [facility] Comment on above: Result Comment: Nega tive for Flu B protein antigen. Infection due to Flu B cannot be ruled out. Flu B antigen in the sample may be below the detection limit of the test. Performed By: #### I NFLUAB ####[facility] Rsaijlrszp85[address] [place], [place] [address]Dr. Nahed Yañez INFLUENZA A AG Negative Normal NEGATIVE SEE COMMENT [facility] Comment on above: Performed By: #### I NFLUAB ####[facility] Wgianaqhff[address] [place], [place] [address]Dr. Nahed Yañez INFLUENZA B AG Negative Normal NEGATIVE SEE COMMENT [facility] Comment on above: Performed By: #### I NFLUAB ####[facility] Iznnrhwvpt535[address] [place], [place] [address]Dr. Nahed Yañez LACTATE/LACTIC ACIDon 2022 Lactate [Moles/Vol] 2.5 mmol/L Critically high 0.4-2.0 [facility] Comment on above: Performed By: #### L ACT ####[facility] Itlpppgtrn[address] [place], [place] [address]Dr. Nahed Yañez Lactate [Moles/Vol] 3.3 mmol/L Critically high 0.4-2.0 [facility] Comment on above: Performed By: #### L ACT ####[facility] Tqdyjqjreu65[address] [place], [place] [address]Dr. Nahed Yañez Lactate [Moles/Vol] 2.7 mmol/L Critically high 0.4-2.0 [facility] Comment on above: Performed By: #### L ACT ####[facility] W[address]xwqiz[address] [place] [address]Dr. Nahed Yañez Lactate [Moles/Vol] 2.8 mmol/L Critically high 0.4-2.0 [facility] Comment on above: Performed By: #### L ACT ####[facility] Ltppmclapz[address] [place] [address]Dr. Nahed Yañez MAGNESIUMon 07-30-2022 Magnesium [Mass/Vol] 1.9 mg/dL Normal 1.8-2.4 [facility] Comment on above: Performed By: #### M G, CMP ####[facility] Mzyqakanlz[address] [place], [place] [address]Dr. Nahed Yañez POINT OF CARE GLUCOSEon 07-12 Glucose [Mass/Vol] 220 mg/dL Critically high 74-106 [facility] Comment on above: Performed By: #### P OCGLUC ####[facility] Vdmsgydaao1434[address] [place], [place] [address]Dr. Nahed Yañez Glucose [Mass/Vol] 162 mg/dL Critically high 74-106 [facility] Comment on above: Result Comment: Kaycee clemons Meter Performed By: #### P OCGLUC ####[facility] Zrbzjmainr[address] [place], [place] [address]Dr. Nahed Yañez PROF 14(COMP METB)on 023 Albumin [Mass/Vol] 2.9 g/dL Critically low 3.4-5.0 [facility] Comment on above: Performed By: #### M G, CMP ####[facility] V[address]duwpxy[address] [place] [address]Dr. Nahed Yañez Albumin/Globulin [Mass ratio] 0.8 {ratio} Normal [facility] Comment on above: Performed By: #### M G, CMP ####[facility] Lwvhkaiely[address] [place] [address]Dr. Nahed Yañez ALP [Catalytic activity/Vol] 94 U/L Normal 46-116 [facility] Comment on above: Performed By: #### M Teresa, CMP ####[facility] Wlvrqgbjga[address] [place] [address]Dr. Nahed Yañez ALT [Catalytic activity/Vol] 22 U/L Normal 14-59 [facility] Comment on above: Performed By: #### Pablo Moore, CMP ####[facility] Yuqztmqlvu[address] [place], [place] [address]Dr. Nahed Yañez Anion gap [Moles/Vol] 12.4 mmol/L Normal [facility] Comment on above: Performed By: #### Pablo Moore, CMP ####[facility] Cqcwcfjmay6[address] [place], [place] [address]Dr. Nahed Yañez AST [Catalytic activity/Vol] 18 U/L Normal 15-37 [facility] Comment on above: Performed By: #### Pablo Moore, CMP ####[facility] Raazyfyifs4925[address] [place], [place] [address]Dr. Nahed Yañez Bilirubin [Mass/Vol] 0.1 mg/dL Critically low 0.2-1.0 [facility] Comment on above: Performed By: #### Pablo Moore, CMP ####[facility] Raqoejocnu314[address] [place], [place] [address]Dr. Nahed Yañez Calcium [Mass/Vol] 8.9 mg/dL Normal 8.5-10.1 [facility] Comment on above: Performed By: #### Pablo Moore, CMP ####[facility] Ouehamvodo[address] [place], [place] [address]Dr. Nahed Yañez Chloride [Moles/Vol] 99 mmol/L Normal 98-107 [facility] Comment on above: Performed By: #### Pablo Moore, CMP ####[facility] Vtkrmetefn0640[address] [place], [place] [address]Dr. Nahed Yañez CO2 [Moles/Vol] 26.0 mmol/L Normal 21.0-32.0 [facility] Comment on above: Performed By: #### Pablo Moore, CMP ####[facility] Fqofzmltcg1913[address] [place], [place] [address]Dr. Nahed Yañez Creatinine [Mass/Vol] 1.16 mg/dL Critically high 0.55-1.02 [facility] Comment on above: Performed By: #### Pablo Moore, CMP ####[facility] [address] [place] [id number]. Nahed Yañez EGFR-AF GERMAN 58 mL/min/1.73m2 Critically low >=60 [facility] Comment on above: Performed By: #### M G, CMP ####[facility] Wonxbtdlzz2133 [place] [address]Dr. Nahed Yañez EGFR-NON AF GERMAN 47 mL/min/1.73m2 Critically low >=60 [facility] Comment on above: Performed By: #### M G, CMP ####[facility] Kxmabbqbac[address] [place] [id number]. Nahed Yañez Globulin (S) [Mass/Vol] 3.7 g/dL Normal [facility] Comment on above: Performed By: #### M G, CMP ####[facility] Wqdqxhzfvo[address] [place], [place] [address]Dr. Nahed Yañez Glucose [Mass/Vol] 267 mg/dL Critically high 74-106 [facility] Comment on above: Performed By: #### M G, CMP ####[facility] Nyutqgmlfl5025[address] [place], [place] [address]Dr. Nahed Yañez Potassium [Moles/Vol] 4.4 mmol/L Normal 3.5-5.1 [facility] Comment on above: Performed By: #### M G, CMP ####[facility] Anuxwwsoxg[address] [place], [place] [address]Dr. Nahed Yañez Protein [Mass/Vol] 6.6 g/dL Normal 6.4-8.2 [facility] Comment on above: Performed By: #### M G, CMP ####[facility] Taphomkdkd886[address] [place], [place] [address]Dr. Nahed Yañez Sodium [Moles/Vol] 133 mmol/L Critically low 136-145 [facility] Comment on above: Performed By: #### M G, CMP ####[facility] Tryqoocgxa740[address] [place], [place] [address]Dr. Nahed Yañez Urea nitrogen [Mass/Vol] 33.0 mg/dL Critically high 7.0-18.0 [facility] Comment on above: Performed By: #### M G, CMP ####[facility] Tbjmxixqpl40[address] [place], [place] [address]Dr. Rosemarieashley Otilio Urea nitrogen/Creatinine [Mass ratio] 28.4 mg/mg Normal [facility] Comment on above: Performed By: #### M G, CMP ####[facility] [address]cf[address] [place] [address]Dr. Nahed Yañez SPUTUM GRAM STAINon 07-31-19 COMMENTS Normal [facility] Comment on above: Performed By: #### S PUTGS ####[facility] Euzdbkqgnq[address] [place], [place] [address]Dr. Nahed Yañez DIPHTHEROIDS Normal [facility] Comment on above: Performed By: #### S PUTGS ####[facility] Tmhhflxoca[address] [place], [place] [address]Dr. Nahed Yañez EPITHELIALS <25 Normal [facility] Comment on above: Performed By: #### S PUTGS ####[facility] Xfngxphhqd[address]25[address] [place], [place] [address]Dr. Nahed Yañez FUNGAL ELEMENTS Normal The [facility] Comment on above: Performed By: #### S PUTGS ####[facility] Rhzxseuvkc[address] [place], [place] [address]Dr. Nahed Yañez GRAM NEG BACILLI Normal [facility] Comment on above: Performed By: #### S PUTGS ####[facility] Hgecczgpsf9764[address] [place], [place] [address]Dr. Nahed Yañez GRAM NEG DIPPLOCOCCI Normal [facility] Comment on above: Performed By: #### S PUTGS ####[facility] [address]wn[address]okg[address] [place] [address]Dr. Nahed Yañez GRAM POS BACILLI FEW Normal [facility] Comment on above: Performed By: #### S PUTGS ####[facility] Lljqseedew[address] [place], [place] [address]Dr. Nahed Yañez GRAM POSITIVE COCCI FEW Normal [facility] Comment on above: Performed By: #### S PUTGS ####[facility] Fgboaiwtqx45[address] [place] [address]Dr. Nahed Yañez WBC (Bld) [#/Vol] 10*3/uL Normal [facility] Comment on above: Performed By: #### S VALDEMARGS ####[facility] Sziyviusqy[address] [place], [place] [address]Dr. Nahed Yañez URINE MICROSCOPIC ONLYon BACTERIA SMALL Abnormal NONE SEEN [facility] Comment on above: Performed By: #### NUNU DOVERO ####[facility] Ejzeryynlr199[address] [place], [place] [address]Dr. Nahed Yañez Bacteria identified Cx Nom (U) INDICATED Normal [facility] Comment on above: Performed By: #### NUNU DOVERO ####[facility] Hnwkgyukog180[address] [place], [place] [address]Dr. Nahed Yañez CAST NONE SEEN Normal NONE SEEN [facility] Comment on above: Performed By: #### NUNU DVOERO ####[facility] Nnzpebnflc177[address] [place], [place] [address]Dr. Nahed Yañez Crystals LM Nom (Urine sed) NONE SEEN Normal NONE SEEN [facility] Comment on above: Performed By: #### NUNU DOVERO ####[facility] Xdwekswmod[address] [place], [place] [address]Dr. Nahed Yañez Epithelial cells LM Ql (Urine sed) FEW Abnormal NONE SEEN /RARE [facility] Comment on above: Performed By: #### NUNU DOVERO ####[facility] Gwiytqjtex[address] [place], [place] [address]Dr. Nahed Yañez MUCOUS TRACE Abnormal NONE SEEN [facility] Comment on above: Performed By: #### MYLA DOVEICRO ####[facility] Cdmtsbpsnr[address] [place], [place] [address]Dr. Nahed Yañez RBC 0-2 Normal 0-2 [facility] Comment on above: Performed By: #### NUNU DOVERO ####[facility] Zinbxmvodn[address] [place], [place] [address]Dr. Nahed Yañez WBC 0-2 Abnormal NONE SEEN [facility] Comment on above: Performed By: #### E LISSAYARELIS ####[facility] [address]iemdjqtoe[address] [place] [address]Dr. Nahed Yañez XR CHEST 1 Von 07-30-2022 XR CHEST 1 V Normal [facility] CARDIAC FRANCISCO ADMITon 023 CK [Catalytic activity/Vol] 59 U/L Normal 26-192 [facility] Comment on above: Performed By: #### BLADIMIR SINGH ####[facility] Aemhzkgqob[address] [place] [address]Dr. Nahed Otilio CK.MB [Mass/Vol] 0.59 ng/mL Normal <=3.60 [facility] Comment on above: Performed By: #### BLADIMIR SINGH ####[facility] [address]rlmcdy34[address] [place] [address]Dr. Nahed Otilio HSTROP 40.7 pg/mL Normal 4.0-51.3 [facility] Comment on above: Result Comment: CUT- OFF POINTS HAVE BEEN ESTABLISHED BASED ON THE FOURTH UNIVERSAL DEFINITIONS OF MYOCARDIALINFARCTION. THE UPPER REFERENCE LIMIT (URL) OF TROPONIN, DEFINED THE 99TH PERCENTILE OFcTnI DISTRIBUTION IN A REFERENCE POPULATION, HAS BEEN CONFIRMED THE DECISION THRESHOLDFOR CT DIAGNOSIS. Performed By: #### BLADIMIR SINGH ####[facility] [address]dlduvmpfp[address] [place] [address]Dr. Nahed Otilio ANDRE 89 ng/mL Critically high 9-82 [facility] Comment on above: Performed By: #### BLADIMIR SINGH ####[facility] Cqfxwjlzsb6[address] [place] [address]Dr. Nahed Otilio CBC AUTO DIFFon 07-29-2022 BASO # 0.0 103/ul Normal 0.0-0.1 [facility] Comment on above: Performed By: #### C GILBERTO ####[facility] Bgsibioull[address] [place] [address]Dr. Rosemarieashley Yañez Basophils/100 WBC (Bld) 0.1 % Critically low 0.2-2.0 [facility] Comment on above: Performed By: #### Isabell MACIAS ####[facility] Ewqymtkgcq[address] [place] [address]Dr. Nahed Yañez EO # 0.0 103/ul Normal 0.0-0.7 [facility] Comment on above: Performed By: #### C BC ####[facility] Zxdbrbuqdk2144 [place] [address]Dr. Nahed Yañez Eosinophils/100 WBC (Bld) 0.0 % Critically low 0.9-7.0 [facility] Comment on above: Performed By: #### C BC ####[facility] Zfghnuohdi[address] [place], [place] [address]Dr. Nahed Yañez Erythrocyte distribution width (RBC) [Ratio] 14.5 % Normal 11.0-15.0 [facility] Comment on above: Performed By: #### C BC ####[facility] Dvdofuycgl[address] [place], [place] [address]Dr. Nahed Yañez Hematocrit (Bld) [Volume fraction] 42.1 % Normal 36.0-48.0 [facility] Comment on above: Performed By: #### C BC ####[facility] [address]fcknvnxt[address] [place], [place] [address]Dr. Nahed Yañez Hemoglobin (Bld) [Mass/Vol] 13.4 g/dL Normal 12.0-16.0 [facility] Comment on above: Performed By: #### C BC ####[facility] J[address]kgyflax[address] [place] [address]Dr. Nahed Yañez IG # 0.07 10e3/ul Critically high 0.00-0.03 [facility] Comment on above: Performed By: #### C BC ####[facility] Xsbhhbgmkz9879 [place] [address]Dr. Nahed Yañez IG % 0.5 % Normal 0.0-0.5 [facility] Comment on above: Performed By: #### C BC ####[facility] Wreqsfevur[address] [place], [place] [address]Dr. Nahed Yañez LYMPH # 3.2 103/ul Normal 1.2-3.8 [facility] Comment on above: Performed By: #### C BC ####[facility] Tdogtpjkff[address] [place] [address]Dr. Nahed Otilio Lymphocytes/100 WBC (Bld) 21.2 % Normal 20.5-60.0 [facility] Comment on above: Performed By: #### C BC ####[facility] Bvoxanflvj[address] [place] [phone]. Nahed Otilio MANUAL DIFF REQ NO Normal [facility] Comment on above: Performed By: #### C BC ####[facility] Hjznuymeuz05[address] [place] [address]Dr. Nahed Otilio MCH (RBC) [Entitic mass] 28.1 pg Normal 26.7-34.0 [facility] Comment on above: Performed By: #### C BC ####[facility] Xdkexbrzhy74[address] [place] [address]Dr. Nahed Otilio MCHC (RBC) [Mass/Vol] 31.8 g/dL Normal 29.9-35.2 [facility] Comment on above: Performed By: #### C BC ####[facility] S[address]hlyakxj[address] [place] [address]Dr. Nahed Otilio MCV (RBC) [Entitic vol] 88.3 fL Normal 81.0-99.0 [facility] Comment on above: Performed By: #### C BC ####[facility] Xadrrvneub[address] [place] [address]Dr. Nahed Yañez MONO # 1.0 103/ul Critically high 0.3-0.8 [facility] Comment on above: Performed By: #### C BC ####[facility] [address]zj[address]jvevqf47[address] [place] [id number]. Rosemarieashley Yañez Monocytes/100 WBC (Bld) 6.3 % Normal 1.7-12.0 [facility] Comment on above: Performed By: #### C BC ####[facility] Xvnbykjyoi3951 [place] [id number]. Nahed Yañez NEUT # 11.0 103/ul Critically high 1.4-6.5 [facility] Comment on above: Performed By: #### C BC ####[facility] Jubrchcror1336 [place] [phone]. Nahed Otilio Neutrophils/100 WBC (Bld) 71.9 % Normal 43.0-75.0 [facility] Comment on above: Performed By: #### C BC ####[facility] Bivgyswgna4349 [place] [phone]. Nahed Yañez Platelet mean volume (Bld) [Entitic vol] 9.9 fL Normal 9.5-13.5 [facility] Comment on above: Performed By: #### C BC ####[facility] Tlimkiizpq0134 [place] [id number]. Nahed Yañez PLT 385 103/ul Normal 150-450 [facility] Comment on above: Performed By: #### C BC ####[facility] Lbvtlhgemx24[address] [place] [address]Dr. Nahed Yañez RBC 4.77 106/ul Normal 4.20-5.40 [facility] Comment on above: Performed By: #### C BC ####[facility] Ygtsfsjdbd66[address] [place] [address]Dr. Rosemarieashley Yañez WBC 15.3 103/ul Critically high 4.0-11.0 [facility] Comment on above: Performed By: #### C BC ####[facility] Hzmkfkqtzf19[address] [place] [address]Dr. Nahed Yañez PROF CHEM 8 (BAS METB)on Anion gap [Moles/Vol] 13.4 mmol/L Normal [facility] Comment on above: Performed By: #### C NGHIA, BMP ####[facility] Gisnuawtbc8450 [place] [phone]. Nahed Yañez Calcium [Mass/Vol] 9.5 mg/dL Normal 8.5-10.1 [facility] Comment on above: Performed By: #### C NHGIA, BMP ####[facility] Dzqjkfkxpb5315 [place] [phone]. Nahed Yañez Chloride [Moles/Vol] 101 mmol/L Normal 98-107 [facility] Comment on above: Performed By: #### C MADM, BMP ####[facility] Xxdctestcm0202 [place] [phone]. Nahed Yañez CO2 [Moles/Vol] 27.9 mmol/L Normal 21.0-32.0 [facility] Comment on above: Performed By: #### C ELLAM, BMP ####[facility] Pvbjtkevka5397 [place] [phone]. Nahed Yañez Creatinine [Mass/Vol] 0.91 mg/dL Normal 0.55-1.02 [facility] Comment on above: Performed By: #### C NGHIA, BMP ####[facility] Mzvvqeiapw9303 [place] [phone]. Nahed Yañez EGFR-AF GERMAN >60 Normal >=60 [facility] Comment on above: Performed By: #### C NGHIA, BMP ####[facility] Axhuepcbhm4882 [place] [phone]. Nahed Yañez EGFR-NON AF GERMAN >60 Normal >=60 [facility] Comment on above: Performed By: #### C NGHIA, BMP ####[facility] Wkhccegxsp5758 [place] [phone]. Nahed Yañez Glucose [Mass/Vol] 100 mg/dL Normal 74-106 [facility] Comment on above: Performed By: #### C NGHIA, BMP ####[facility] Zoilofthdx0587 [place] [phone]. Nahed Yañez Potassium [Moles/Vol] 4.3 mmol/L Normal 3.5-5.1 [facility] Comment on above: Result Comment: samp le slightly hemolized Performed By: #### C ELLAM, BMP ####[facility] Hqqfgqmpaa9654 [place] [phone]. Nahed Yañez Sodium [Moles/Vol] 138 mmol/L Normal 136-145 [facility] Comment on above: Performed By: #### C MADM, BMP ####[facility] Wyucnjbcgv5702 [place] [phone]. Nahed Yañez Urea nitrogen [Mass/Vol] 34.0 mg/dL Critically high 7.0-18.0 The [facility] Comment on above: Performed By: #### C NGHIA, BMP ####[facility] Gxxovfr[address] [place], [place] [address]Dr. Nahed Yañez Urea nitrogen/Creatinine [Mass ratio] 37.4 mg/mg Normal The [facility] Comment on above: Performed By: #### C NGHIA, BMP ####[facility] Yhgqywziwg[address] [place], [place] [address]Dr. Nahed Otilio BNPon 07-28-2022 Natriuretic peptide B (Bld) [Mass/Vol] 249.0 pg/mL Normal <=900.0 The [facility] Comment on above: Performed By: #### B ELECTROMECHANISMS DESIGN DRAFTER ####[facility] Uyahiasmbj[address] [place], [place] [address]Dr. Nahed Yañez CBC AUTO DIFFon 07-28-2022 BASO # 0.0 103/ul Normal 0.0-0.1 The [facility] Comment on above: Performed By: #### C BC ####[facility] Ryxbsutuoz9[address] [place], [place] [address]Dr. Rosemarieashley Yañez Basophils/100 WBC (Bld) 0.1 % Critically low 0.2-2.0 The [facility] Comment on above: Performed By: #### C BC ####[facility] Orwfxfoaid[address] [place], [place] [address]Dr. Nahed Otilio EO # 0.0 103/ul Normal 0.0-0.7 The [facility] Comment on above: Performed By: #### C BC ####[facility] Bqzhtteldu[address] [place], [place] [address]Dr. Rosemarieashley Yañez Eosinophils/100 WBC (Bld) 0.0 % Critically low 0.9-7.0 The [facility] Comment on above: Performed By: #### C BC ####[facility] [address]jwjcahhfp[address] [place], [place] [address]Dr. Rosemarieashley Otilio Erythrocyte distribution width (RBC) [Ratio] 14.3 % Normal 11.0-15.0 The [facility] Comment on above: Performed By: #### C BC ####[facility] Zemhgfssfu5793 [place] [phone]. Nahed Yañez Hematocrit (Bld) [Volume fraction] 38.7 % Normal 36.0-48.0 [facility] Comment on above: Performed By: #### C BC ####[facility] Drjebqapds1813 [place] [phone]. Nahed Yañez Hemoglobin (Bld) [Mass/Vol] 12.2 g/dL Normal 12.0-16.0 [facility] Comment on above: Performed By: #### C BC ####[facility] Vhvvjqrdhx6430 [place] [phone]. Nahed Yañez IG # 0.06 10e3/ul Critically high 0.00-0.03 [facility] Comment on above: Performed By: #### C BC ####[facility] Xfqttbmzeu3602 [place] [address]Dr. Nahed Yañez IG % 0.5 % Normal 0.0-0.5 [facility] Comment on above: Performed By: #### C BC ####[facility] Hbndgduibg1778 [place] [address]Dr. Rosemarieashley Yañez LYMPH # 0.7 103/ul Critically low 1.2-3.8 [facility] Comment on above: Performed By: #### C BC ####[facility] Sffqqboxaq0057 [place] [address]Dr. Nahed Yañez Lymphocytes/100 WBC (Bld) 5.7 % Critically low 20.5-60.0 [facility] Comment on above: Performed By: #### C BC ####[facility] Tsbzqombmu8134 [place] [phone]. Rosemarieashley Yañez MANUAL DIFF REQ NO Normal [facility] Comment on above: Performed By: #### C BC ####[facility] Rrcivjrwqz4502 [place] [address]Dr. Nahed Yañez MCH (RBC) [Entitic mass] 28.2 pg Normal 26.7-34.0 [facility] Comment on above: Performed By: #### C BC ####[facility] Wvdtsmdagn1808 [place] [phone]. Nahed Yañez MCHC (RBC) [Mass/Vol] 31.5 g/dL Normal 29.9-35.2 The [facility] Comment on above: Performed By: #### C BC ####[facility] Ujqkucvyfl1399 [place] [phone]. Nahed Yañez MCV (RBC) [Entitic vol] 89.6 fL Normal 81.0-99.0 The [facility] Comment on above: Performed By: #### C BC ####[facility] Leuddsaiwe4937 [place] [phone]. Nahed Yañez MONO # 0.3 103/ul Normal 0.3-0.8 [facility] Comment on above: Performed By: #### C BC ####[facility] Nykphadvic5756 [place] [address]Dr. Nahed Yañez Monocytes/100 WBC (Bld) 2.2 % Normal 1.7-12.0 The [facility] Comment on above: Performed By: #### C BC ####[facility] T[address] [place], [place] [address]Dr. Nahed Yañez NEUT # 11.1 103/ul Critically high 1.4-6.5 [facility] Comment on above: Performed By: #### C BC ####[facility] Jouopoehuf6884 [place] [phone]. Nahed Yañez Neutrophils/100 WBC (Bld) 91.5 % Critically high 43.0-75.0 The [facility] Comment on above: Performed By: #### C BC ####[facility] Wtocycnvcs7479 [place] [phone]. Nahed Yañez Platelet mean volume (Bld) [Entitic vol] 10.1 fL Normal 9.5-13.5 The [facility] Comment on above: Performed By: #### C BC ####[facility] Gqjqidmegg9974 [place] [phone]. Nahed Otilio PLT 323 103/ul Normal 150-450 The [facility] Comment on above: Performed By: #### C BC ####[facility] Adseujaslu8448 [place] [phone]. Nahed Yañez RBC 4.32 106/ul Normal 4.20-5.40 [facility] Comment on above: Performed By: #### C BC ####[facility] Kpsobwzkxx4195 [place] [address]Dr. Nahed Yañez WBC 12.1 103/ul Critically high 4.0-11.0 [facility] Comment on above: Performed By: #### C BC ####[facility] Ulyzlhrjlq2191 [place] [address]Dr. Nahed Otilio POINT OF CARE GLUCOSEon 07-12 Glucose [Mass/Vol] 308 mg/dL Critically high 74-106 [facility] Comment on above: Performed By: #### P OCGLUC ####[facility] Cudnqhgrea4[address] [place] [address]Dr. Nahed Yañez Glucose [Mass/Vol] 341 mg/dL Critically high 74-106 [facility] Comment on above: Performed By: #### P OCGLUC ####[facility] Gecnminrmi0396 [place] [address]Dr. Nahed Yañez Glucose [Mass/Vol] 320 mg/dL Critically high 74-106 [facility] Comment on above: Performed By: #### P OCGLUC ####[facility] Psvavztfpg7777 [place] [address]Dr. Nahed Otilio PROF 14(COMP METB)on 023 Albumin [Mass/Vol] 3.0 g/dL Critically low 3.4-5.0 [facility] Comment on above: Performed By: #### C MP ####[facility] Umlilvtcwm6936 [place] [address]Dr. Nahed Yañez Albumin/Globulin [Mass ratio] 0.7 {ratio} Normal [facility] Comment on above: Performed By: #### C MP ####[facility] Xtjzritget7737 [place] [address]Dr. Nahed Yañez ALP [Catalytic activity/Vol] 93 U/L Normal 46-116 [facility] Comment on above: Performed By: #### C MP ####[facility] Jzclduyaxk9593 [place], [place] [address]Yq. Nahed Yañez ALT [Catalytic activity/Vol] 15 U/L Normal 14-59 [facility] Comment on above: Performed By: #### C MP ####[facility] Cxitysdtnb1390 [place], [place] [address]Lk. Nahed Yañez Anion gap [Moles/Vol] 13.0 mmol/L Normal Th e [facility] Comment on above: Performed By: #### C MP ####[facility] Vesdjoyasx4204 [place] [phone]. Nahed Yañez AST [Catalytic activity/Vol] 11 U/L Critically low 15-37 [facility] Comment on above: Performed By: #### C MP ####[facility] Wjylmgdxjg7933 [place] [phone]. Nahed Yañez Bilirubin [Mass/Vol] 0.2 mg/dL Normal 0.2-1.0 [facility] Comment on above: Performed By: #### C MP ####[facility] Xvxqvxghfa7834 [place] [phone]. Nahed Yañez Calcium [Mass/Vol] 9.6 mg/dL Normal 8.5-10.1 [facility] Comment on above: Performed By: #### C MP ####[facility] Kyfvyybrkg6576 [place] [phone]. Nahed Yañez Chloride [Moles/Vol] 100 mmol/L Normal 98-107 The [facility] Comment on above: Performed By: #### C MP ####[facility] Ysrirrsxre5242 [place] [phone]. Nahed Yañez CO2 [Moles/Vol] 27.3 mmol/L Normal 21.0-32.0 [facility] Comment on above: Performed By: #### C MP ####[facility] Uctgnunfvg8861 [place] [phone]. Nahed Yañez Creatinine [Mass/Vol] 1.19 mg/dL Critically high 0.55-1.02 [facility] Comment on above: Performed By: #### C MP ####[facility] Qlxrnvmwuv5783 [place] [address]Dr. Nahed Yañez EGFR-AF GERMAN 56 mL/min/1.73m2 Critically low >=60 [facility] Comment on above: Performed By: #### C MP ####[facility] Yvyjmgptal4213 [place] [phone]. Nahed Yañez EGFR-NON AF GERMAN 46 mL/min/1.73m2 Critically low >=60 The [facility] Comment on above: Performed By: #### C MP ####[facility] Jeicgnfqju6441 [place] [phone]. Nahed Yañez Globulin (S) [Mass/Vol] 4.1 g/dL Normal [facility] Comment on above: Performed By: #### C MP ####[facility] Wuinvyntwv7121 [place] [phone]. Nahed Yañez Glucose [Mass/Vol] 244 mg/dL Critically high 74-106 [facility] Comment on above: Performed By: #### C MP ####[facility] Iqceeddfsh3221 [place] [phone]. Nahed Yañez Potassium [Moles/Vol] 4.3 mmol/L Normal 3.5-5.1 [facility] Comment on above: Performed By: #### C MP ####[facility] Vopdcerewy1382 [place] [phone]. Nahed Yañez Protein [Mass/Vol] 7.1 g/dL Normal 6.4-8.2 [facility] Comment on above: Performed By: #### C MP ####[facility] Blpewkclny9177 [place] [phone]. Nahed Yañez Sodium [Moles/Vol] 136 mmol/L Normal 136-145 [facility] Comment on above: Performed By: #### C MP ####[facility] Sfrgtjymwg9529 [place] [phone]. Nahed Yañez Urea nitrogen [Mass/Vol] 19.0 mg/dL Critically high 7.0-18.0 [facility] Comment on above: Performed By: #### C MP ####[facility] [address]jtfpgp[address] [place], [place] [address]Dr. Nahed Yañez Urea nitrogen/Creatinine [Mass ratio] 16.0 mg/mg Normal The [facility] Comment on above: Performed By: #### C MP ####[facility] Fcgdpqpbni94[address] [place], [place] [address]Dr. Nahed Yañez BNPon 07-27-2022 Natriuretic peptide B (Bld) [Mass/Vol] 1093.0 pg/mL Critically high <=900.0 The [facility] Comment on above: Performed By: #### B ELECTROMECHANISMS DESIGN DRAFTER ####[facility] Cjgixdqvoh[address] [place], [place] [address]Dr. Nahed Yañez CBC AUTO DIFFon 07-27-2022 BASO # 0.1 103/ul Normal 0.0-0.1 [facility] Comment on above: Performed By: #### C BC ####[facility] Xogvuscvfs[address] [place], [place] [address]Dr. Nahed Otilio Basophils/100 WBC (Bld) 0.3 % Normal 0.2-2.0 [facility] Comment on above: Performed By: #### C BC ####[facility] Dxitookgej[address] [place], [place] [address]Dr. Nahed Yañez EO # 0.2 103/ul Normal 0.0-0.7 [facility] Comment on above: Performed By: #### C BC ####[facility] Rlygqffduk[address] [place], [place] [address]Dr. Nahed Otilio Eosinophils/100 WBC (Bld) 1.2 % Normal 0.9-7.0 The [facility] Comment on above: Performed By: #### C BC ####[facility] Zzjbhnsevj[address] [place], [place] [address]Dr. Nahed Yañez Erythrocyte distribution width (RBC) [Ratio] 14.1 % Normal 11.0-15.0 The [facility] Comment on above: Performed By: #### C BC ####[facility] Wtqdecqqon[address] [place], [place] [address]Dr. Nahed Yañez Hematocrit (Bld) [Volume fraction] 42.2 % Normal 36.0-48.0 [facility] Comment on above: Performed By: #### C BC ####[facility] Oswetbenrn5713 [place] [address]Dr. Nahed Otilio Hemoglobin (Bld) [Mass/Vol] 13.6 g/dL Normal 12.0-16.0 [facility] Comment on above: Performed By: #### C BC ####[facility] Uwakywhkna8137 [place] [address]Dr. Rosemarieashley Otilio IG # 0.09 10e3/ul Critically high 0.00-0.03 [facility] Comment on above: Performed By: #### C BC ####[facility] Tsotrnouxg3164 [place] [address]Dr. Nahed Yañez IG % 0.5 % Normal 0.0-0.5 [facility] Comment on above: Performed By: #### C BC ####[facility] Mtzahrgpyf8084 [place] [address]Dr. Nahed Yañez LYMPH # 1.8 103/ul Normal 1.2-3.8 [facility] Comment on above: Performed By: #### C BC ####[facility] Dtauzgiwwk6834 [place] [address]DrShaun Yañez Lymphocytes/100 WBC (Bld) 10.2 % Critically low 20.5-60.0 [facility] Comment on above: Performed By: #### C BC ####[facility] Zaqslkbwsn2951 [place] [address]Dr. Nahed Yañez MANUAL DIFF REQ NO Normal [facility] Comment on above: Performed By: #### C BC ####[facility] Laxawossvo3219 [place] [phone]. Nahed Yañez MCH (RBC) [Entitic mass] 28.3 pg Normal 26.7-34.0 [facility] Comment on above: Performed By: #### C BC ####[facility] Ecgomaxcxp8462 [place] [address]Dr. Nahed Yañez MCHC (RBC) [Mass/Vol] 32.2 g/dL Normal 29.9-35.2 The [facility] Comment on above: Performed By: #### C BC ####[facility] Owwhootkad7221 [place] [phone] Nahed Otilio MCV (RBC) [Entitic vol] 87.9 fL Normal 81.0-99.0 The [facility] Comment on above: Performed By: #### C BC ####[facility] Bwvlvcmyck2528 [place] [address]DrShaun Houstonashley Otilio MONO # 0.9 103/ul Critically high 0.3-0.8 [facility] Comment on above: Performed By: #### C BC ####[facility] Lrfzljdcoc4745 [place] [address]Dr. Nahed Yañez Monocytes/100 WBC (Bld) 5.2 % Normal 1.7-12.0 [facility] Comment on above: Performed By: #### C BC ####[facility] Jxgzcepcuj[address] [place], [place] [address]Dr. Nahed Yañez NEUT # 14.4 103/ul Critically high 1.4-6.5 [facility] Comment on above: Performed By: #### C BC ####[facility] Lckfcxsfos[address] [place], [place] [address]Dr. Rosemarieashley Yañez Neutrophils/100 WBC (Bld) 82.6 % Critically high 43.0-75.0 The [facility] Comment on above: Performed By: #### C BC ####[facility] [address]tyuzdmnrc[address] [place], [place] [address]Dr. Nahed Yañez Platelet mean volume (Bld) [Entitic vol] 10.1 fL Normal 9.5-13.5 [facility] Comment on above: Performed By: #### C BC ####[facility] Jhikqrqdza6879 [place] [phone]. Nahed Yañez PLT 336 103/ul Normal 150-450 [facility] Comment on above: Performed By: #### C BC ####[facility] Bmhfvpgjlr8575 [place] [phone] Yañez RBC 4.80 106/ul Normal 4.20-5.40 [facility] Comment on above: Performed By: #### C BC ####[facility] Unvduyhobr2506 [place], [place] [address]UcShaun Yañez WBC 17.4 103/ul Critically high 4.0-11.0 [facility] Comment on above: Performed By: #### C BC ####[facility] Bdsdgklrym4463 [place], [place] [address]Sm. Nahed Yañez CTA CHEST WO W CONon 023 CTA CHEST WO W CON Normal [facility] Covid-19 PCR (CVDTBH)on 07-12 SARS-CoV-2 (COVID-19) RNA MIRNA+probe Ql (Unsp spec) Not detected Normal NOT DETECTED The [facility] Comment on above: Result Comment: When diagnostic testing is negative, the possibility of a false negative should be considered inthe context of a patient's recent exposures and the presence of clinical signs and symptomsconsistent with SARS-CoV-2.This test is not yet approved or cleared by the [place] FDA. When there are no FDA-approved or cleared tests available, and other criteria are met, FDA can make tests available under an emergency access mechanism called an Emergency Use Authorization (EUA). The EUA for this test is supported by the [place] of Health and Human Service's declaration that circumstances exist to justify the emergency use of in vitro diagnostics for the detection and/or diagnosis of the virus that causes COVID-19. This EUA will remain in effect for the duration of the COVID-19 declaration justifying emergency of IVDs, unless it is terminated or revoked by the FDA (after which the test may no longer be used). Performed By: #### C VDTBH ####[facility] Zouqubhjjd3269 [place], [place] [address]Eh. Nahed Yañez ECHOCARDIO M/2D COMPLETEon 0 07-27-2022 ECHOCARDIO M/2D COMPLETE Normal [facility] ER URINE PROFILEon 3 Bilirubin Ql (U) Negative Normal NEGATIVE [facility] Comment on above: Performed By: #### U MICRO, ERUR ####[facility] Qgfmarwlty6702 [place], [place] [address]Be. Nahed Yañze Clarity (U) CLEAR Normal CLEAR [facility] Comment on above: Performed By: #### U MICRO, ERUR ####[facility] [address]xcdxuvqnr[address] [place], [place] [address]Dr. Nahed Yañez Color (U) LT. YELLOW Normal YELLOW [facility] Comment on above: Performed By: #### U MICRO, ERUR ####[facility] [address]xscelcdm[address] [place], [place] [address]Dr. Nahed Yañez ERUAHD A micrscopic examination will be performed if indicated. Normal The [facility] Comment on above: Performed By: #### U MICRO, ERUR ####[facility] Efhxbfzxau[address] [place], [place] [address]Dr. Nahed Yañez Glucose Ql (U) >1000 Abnormal NEGATIVE The [facility] Comment on above: Performed By: #### U MICRO, ERUR ####[facility] Ladnqnyrpe[address] [place], [place] [address]Dr. Nahed Yañez Hemoglobin Ql (U) TRACE-LYSED Abnormal NEGATIVE [facility] Comment on above: Performed By: #### U MICRO, ERUR ####[facility] Rdpgfpyahu[address] [place], [place] [address]Dr. Nahed Yañez Ketones Ql (U) TRACE Abnormal NEGATIVE The [facility] Comment on above: Performed By: #### U MICRO, ERUR ####[facility] Xvlttspcxq[address] [place], [place] [address]Dr. Nahed Yañez LEUKOCYTES Negative Normal NEGATIVE [facility] Comment on above: Performed By: #### U MICRO, ERUR ####[facility] [address] [place], [place] [address]Dr. Nahed Yañez Nitrite Ql (U) Negative Normal NEGATIVE The [facility] Comment on above: Performed By: #### U MICRO, ERUR ####[facility] Eszzggzdsk[address] [place], [place] [address]Dr. Nahed Yañez pH (U) 7.0 [pH] Normal 5-9 [facility] Comment on above: Performed By: #### U MICRO, ERUR ####[facility] Dnacroesfz1734 [place] [phone]. Nahed Yañez SPEC GRAVITY 1.020 Normal 1.005-<=1.02 5 [facility] Comment on above: Performed By: #### U MICRO, ERUR ####[facility] Wyzdeuwisd5176 [place] [phone]. Nahed Yañez UA PROTEIN Negative Normal NEGATIVE/ TRACE The [facility] Comment on above: Performed By: #### U MICRO, ERUR ####[facility] Bsznxgmsse36[address] [place] [address]Dr. Nahed Otilio UR MICRO IND INDICATED Normal [facility] Comment on above: Performed By: #### U MICRO, ERUR ####[facility] [address] [place] [address]Dr. Nahed Yañez Urobilinogen Qn (U) 0.2 {Alem'U}/dL Normal 0.2 - 1. 0 [facility] Comment on above: Performed By: #### U MICRO, ERUR ####[facility] Hrcpwzvneb[address] [place] [address]Dr. Nahed Yañez LIPID PROFILEon 07-27-2022 CHOL-HDL RATIO NORM SEE BELOW Normal [facility] Comment on above: Result Comment: 3.3 - 4.4 LOW RISK 4.4 - 7.1 AVERAGE RISK 7.1 - 11.0 MODERATE RISK >11.0 HIGH RISK Performed By: #### M G, LIPID ####[facility] Stlhdxycpi119[address] [place] [address]Dr. Nahed Otilio Cholesterol [Mass/Vol] 181 mg/dL Normal <=200 Th [facility] Comment on above: Performed By: #### M G, LIPID ####[facility] Gwcccumluy[address] [place] [phone]. Nahed Otilio Cholesterol in HDL [Mass/Vol] 87 mg/dL Critically high 40-60 [facility] Comment on above: Performed By: #### M G, LIPID ####[facility] Buhfvoixlr7[address] [place] [phone]. Rosemarieashley Otilio Cholesterol in LDL [Mass/Vol] 78.6 mg/dL Normal [facility] Comment on above: Performed By: #### Pablo Moore, LIPID ####[facility] Hhlpmztewg[address] [place] [address]Dr. Nahed Yañez Cholesterol.total/Chol esterol in HDL [Mass ratio] 2.1 {ratio} Normal [facility] Comment on above: Performed By: #### Pablo Moore, LIPID ####[facility] Malhevaghc[address] [place] [phone]. Nahed Yañez HDL NORMAL > or = 60 mg/dl - LO W CARDIOVASCULAR RISK <40 mg/dl - HIGH CARDIOVASCULAR RISK Normal [facility] Comment on above: Performed By: #### Pablo Moore, LIPID ####[facility] Jgstmuzsdh[address] [place] [address]Dr. Nahed Yañez LDL CALC NORMAL SEE BELOW Normal [facility] Comment on above: Result Comment: <100 mg/dl OPTIMAL 100 - 129 mg/dl NEAR OR ABOVE OPTIMAL 130 - 159 mg/dl BORDERLINE HIGH 160 - 189 mg/dl HIGH >190 mg/dl VERY HIGH Performed By: #### Pablo Moore, LIPID ####[facility] Xxkuzqmbji50[address] [place] [phone]. Nahed Yañez Triglyceride [Mass/Vol] 77 mg/dL Normal <=150 [facility] Comment on above: Performed By: #### Pablo Moore, LIPID ####[facility] Ejiutjmvnm5[address] [place] [phone]. Nahed Yañez VLDL CALC 15.4 mg/dL Normal [facility] Comment on above: Performed By: #### Pablo Moore, LIPID ####[facility] Psjfufiwon8[address] [place] [phone]. Nahed Yañez MAGNESIUMon 07-27-2022 Magnesium [Mass/Vol] 1.7 mg/dL Critically low 1.8-2.4 [facility] Comment on above: Performed By: #### Pablo Moore, LIPID ####[facility] Xokjekmyqo95[address] [place] [phone]. Nahed Yañez POINT OF CARE GLUCOSEon 07-12 Glucose [Mass/Vol] 276 mg/dL Critically high 74-106 T [facility] Comment on above: Performed By: #### P OCGLUC ####[facility] Agcetbfewp[address] [place] [address]Dr. Nahed Yañez Glucose [Mass/Vol] 143 mg/dL Critically high 74-106 [facility] Comment on above: Performed By: #### P OCGLUC ####[facility] Ualqcjetdx3939 [place] [address]Dr. Nahed Yañez Glucose [Mass/Vol] 117 mg/dL Critically high 74-106 [facility] Comment on above: Performed By: #### P OCGLUC ####[facility] Iadifisgca9243 [place] [address]Dr. Rosemarieashley Yañez PROF CHEM 8 (BAS METB)on Anion gap [Moles/Vol] 11.1 mmol/L Normal [facility] Comment on above: Performed By: #### B RENZO HSTROPN ####[facility] C[address] [place], [place] [address]Dr. Nahed Yañez Calcium [Mass/Vol] 9.6 mg/dL Normal 8.5-10.1 [facility] Comment on above: Performed By: #### Mery MULLER HSTROPN ####[facility] [address] [place], [place] [address]Dr. Rosemarieashley Yañez Chloride [Moles/Vol] 99 mmol/L Normal 98-107 [facility] Comment on above: Performed By: #### B RENZO, HSTROPN ####[facility] Apmidzxqdt[address] [place] [address]Dr. Rosemarieashley Yañez CO2 [Moles/Vol] 27.8 mmol/L Normal 21.0-32.0 [facility] Comment on above: Performed By: #### B RENZO HSTROPN ####[facility] Izsqpvuzky[address] [place] [address]Dr. Nahed Yañez Creatinine [Mass/Vol] 0.90 mg/dL Normal 0.55-1.02 [facility] Comment on above: Performed By: #### Mery MULLER HSTROPN ####[facility] Jeezawnivn[address] [place] [address]Dr. Nahed Yañez EGFR-AF GERMAN >60 Normal >=60 [facility] Comment on above: Performed By: #### B RENZO, HSTROPN ####[facility] Jkpbhnhobr[address] [place] [address]Dr. Nahed Yañez EGFR-NON AF GERMAN >60 Normal >=60 [facility] Comment on above: Performed By: #### B RENZO, HSTROPN ####[facility] Bllnavdnki37[address] [place] [address]Dr. Nahed Yañez Glucose [Mass/Vol] 133 mg/dL Critically high 74-106 T [facility] Comment on above: Performed By: #### B RENZO, HSTROPN ####[facility] Ypekipubwm2[address] [place] [address]Dr. Nahed Yañez Potassium [Moles/Vol] 3.9 mmol/L Normal 3.5-5.1 [facility] Comment on above: Performed By: #### B RENZO, HSTROPN ####[facility] Ckupf[address]px[address] [place], [place] [address]Dr. Nahed Yañez Sodium [Moles/Vol] 134 mmol/L Critically low 136-145 Th [facility] Comment on above: Performed By: #### B RENZO, HSTROPN ####[facility] Ombnytxhxk[address] [place] [address]Dr. Nahed Yañez Urea nitrogen [Mass/Vol] 9.0 mg/dL Normal 7.0-18.0 [facility] Comment on above: Performed By: #### B RENZO, HSTROPN ####[facility] Abfdljmoye[address] [place] [address]Dr. Rosemarieashley Yañez Urea nitrogen/Creatinine [Mass ratio] 10.0 mg/mg Normal [facility] Comment on above: Performed By: #### B RENZO, HSTROPN ####[facility] Igtvjdsiur[address] [place] [address]Dr. Rosemarieashley Yañez TROPONIN, HIGH SENSITIVITYon 07-27-2022 HSTROP 40.7 pg/mL Normal 4.0-51.3 [facility] Comment on above: Result Comment: CUT- OFF POINTS HAVE BEEN ESTABLISHED BASED ON THE FOURTH UNIVERSAL DEFINITIONS OF MYOCARDIALINFARCTION. THE UPPER REFERENCE LIMIT (URL) OF TROPONIN, DEFINED THE 99TH PERCENTILE OFcTnI DISTRIBUTION IN A REFERENCE POPULATION, HAS BEEN CONFIRMED THE DECISION THRESHOLDFOR CT DIAGNOSIS. Performed By: #### H STROPN ####[facility] F[address]ire[address] [place], [place] [address]Oz. Yilan Yañez HSTROP 42.5 pg/mL Normal 4.0-51.3 [facility] Comment on above: Result Comment: CUT- OFF POINTS HAVE BEEN ESTABLISHED BASED ON THE FOURTH UNIVERSAL DEFINITIONS OF MYOCARDIALINFARCTION. THE UPPER REFERENCE LIMIT (URL) OF TROPONIN, DEFINED THE 99TH PERCENTILE OFcTnI DISTRIBUTION IN A REFERENCE POPULATION, HAS BEEN CONFIRMED THE DECISION THRESHOLDFOR CT DIAGNOSIS. Performed By: #### H STROBINH ####[facility] Zx[address]occms[address] [place], [place] [address]Ct. Yilan Yañez HSTROP 50.8 pg/mL Normal 4.0-51.3 [facility] Comment on above: Result Comment: CUT- OFF POINTS HAVE BEEN ESTABLISHED BASED ON THE FOURTH UNIVERSAL DEFINITIONS OF MYOCARDIALINFARCTION. THE UPPER REFERENCE LIMIT (URL) OF TROPONIN, DEFINED THE 99TH PERCENTILE OFcTnI DISTRIBUTION IN A REFERENCE POPULATION, HAS BEEN CONFIRMED THE DECISION THRESHOLDFOR CT DIAGNOSIS. Performed By: #### H STROPN ####[facility] Tudvx[address]xsxm450[address] [place], [place] [address]Vq. Yilan Yañez HSTROP 46.3 pg/mL Normal 4.0-51.3 [facility] Comment on above: Result Comment: CUT- OFF POINTS HAVE BEEN ESTABLISHED BASED ON THE FOURTH UNIVERSAL DEFINITIONS OF MYOCARDIALINFARCTION. THE UPPER REFERENCE LIMIT (URL) OF TROPONIN, DEFINED THE 99TH PERCENTILE OFcTnI DISTRIBUTION IN A REFERENCE POPULATION, HAS BEEN CONFIRMED THE DECISION THRESHOLDFOR CT DIAGNOSIS. Performed By: #### H STROPN, TSH ####[facility] Zmrg[address]xha64[address] [place], [place] [address]Gk. Yilan Yañez HSTROP 54.2 pg/mL Critically high 4.0-51.3 [facility] Comment on above: Result Comment: CUT- OFF POINTS HAVE BEEN ESTABLISHED BASED ON THE FOURTH UNIVERSAL DEFINITIONS OF MYOCARDIALINFARCTION. THE UPPER REFERENCE LIMIT (URL) OF TROPONIN, DEFINED THE 99TH PERCENTILE OFcTnI DISTRIBUTION IN A REFERENCE POPULATION, HAS BEEN CONFIRMED THE DECISION THRESHOLDFOR CT DIAGNOSIS. Performed By: #### B MP, HSTROPN ####[facility] Dofnvfixji[address] [place] [address]Dr. Nahed Yañez TSHon 07-27-2022 TSH 1.566 uIU/mL Normal 0.358-3.740 [facility] Comment on above: Performed By: #### H STROPN, TSH ####[facility] Qykulaueek[address] [place] [address]Dr. Nahed Otilio URINE MICROSCOPIC ONLYon BACTERIA NONE SEEN Normal NONE SEEN The [facility] Comment on above: Performed By: #### U MICRO, ERUR ####[facility] Tyankfwcpu[address] [place] [address]Dr. Nahed Yañez Bacteria identified Cx Nom (U) NOT INDICATED Normal [facility] Comment on above: Performed By: #### U MICRO, ERUR ####[facility] Ljauvkdnry[address] [place] [address]Dr. Nahed Yañez CAST NONE SEEN Normal NONE SEEN [facility] Comment on above: Performed By: #### U MICRO, ERUR ####[facility] Zyqdwapwpp4[address] [place] [address]Dr. Nahed Yañez Crystals LM Nom (Urine sed) NONE SEEN Normal NONE SEEN [facility] Comment on above: Performed By: #### U MICRO, ERUR ####[facility] Qrdogolgxv9[address] [place] [address]Dr. Nahed Yañez Epithelial cells LM Ql (Urine sed) FEW Abnormal NONE SEEN /RARE [facility] Comment on above: Performed By: #### U MICRO, ERUR ####[facility] Tlqhkjjnfm1274 [place] [address]Dr. Nahed Yañez MUCOUS NONE SEEN Normal NONE SEEN [facility] Comment on above: Performed By: #### U MICRO, ERUR ####[facility] Usmfsphoon7871 [place] [address]Dr. Nahed Yañez RBC 0-2 Normal 0-2 [facility] Comment on above: Performed By: #### U MICRO, ERUR ####[facility] Fwbbbavjki[address] [place], [place] [address]Dr. Nahed Yañez WBC NONE SEEN Normal NONE SEEN The [facility] Comment on above: Performed By: #### U MICRO, ERUR ####[facility] [address] [place], [place] [address]Dr. Nahed Yañez XR CHEST 1 Von 07-27-2022 XR CHEST 1 V Normal [facility] INSULINon 05-09-2022 Insulin 21.1 uIU/mL Normal 2.6-24.9 [facility] Comment on above: Performed By: #### I NSULIN ####[facility] Spmnnmrqko[address] [place], [place] [address]Dr. Nahed Otilio BNPon 05-08-2022 Natriuretic peptide B (Bld) [Mass/Vol] 58.0 pg/mL Normal <=900.0 [facility] Comment on above: Performed By: #### B ELECTROMECHANISMS DESIGN DRAFTER, LIPID, T7, TSH, CMP ####[facility] [address]xjvfygcc[address] [place], [place] [address]Dr. Nahed Yañez CBC AUTO DIFFon 05-08-2022 BASO # 0.0 103/ul Normal 0.0-0.1 [facility] Comment on above: Performed By: #### C BC ####[facility] [address]vfdiofsqm[address] [place], [place] [address]Dr. Nahed Otilio Basophils/100 WBC (Bld) 0.4 % Normal 0.2-2.0 [facility] Comment on above: Performed By: #### C BC ####[facility] [address]xtuzjgso[address] [place], [place] [address]Dr. Rosemarieashley Yañez EO # 0.3 103/ul Normal 0.0-0.7 [facility] Comment on above: Performed By: #### C BC ####[facility] Ogkotlgvgh[address] [place], [place] [address]Dr. Nahed Otilio Eosinophils/100 WBC (Bld) 4.2 % Normal 0.9-7.0 [facility] Comment on above: Performed By: #### C BC ####[facility] Iimnfzdjpy[address] [place], [place] [address]Dr. Nahed Yañez Erythrocyte distribution width (RBC) [Ratio] 14.0 % Normal 11.0-15.0 [facility] Comment on above: Performed By: #### C BC ####[facility] Fllmnbrvtv[address] [place], [place] [address]Dr. Nahed Yañez Hematocrit (Bld) [Volume fraction] 43.8 % Normal 36.0-48.0 [facility] Comment on above: Performed By: #### C BC ####[facility] Ecobrxjeex[address] [place], [place] [address]Dr. Nahed Yañez Hemoglobin (Bld) [Mass/Vol] 13.9 g/dL Normal 12.0-16.0 [facility] Comment on above: Performed By: #### C BC ####[facility] [address]ebgoywoez[address] [place], [place] [address]Dr. Nahed Yañez IG # 0.01 10e3/ul Normal 0.00-0.03 [facility] Comment on above: Performed By: #### C BC ####[facility] Gzqsimbpru[address] [place], [place] [address]Dr. Nahed Yañez IG % 0.1 % Normal 0.0-0.5 [facility] Comment on above: Performed By: #### C BC ####[facility] [address]ufgnvrpth[address] [place], [place] [address]Dr. Nahed Yañez LYMPH # 2.8 103/ul Normal 1.2-3.8 [facility] Comment on above: Performed By: #### C BC ####[facility] Vrxahftqpg[address] [place], [place] [address]Dr. Nahed Yañez Lymphocytes/100 WBC (Bld) 37.6 % Normal 20.5-60.0 [facility] Comment on above: Performed By: #### C BC ####[facility] Gdufdrtful[address] [place], [place] [address]Dr. Nahed Yañez MANUAL DIFF REQ NO Normal [facility] Comment on above: Performed By: #### C BC ####[facility] Vodfmiqgoo7[address] [place] [address]Dr. Nahed Yañez MCH (RBC) [Entitic mass] 28.4 pg Normal 26.7-34.0 [facility] Comment on above: Performed By: #### C BC ####[facility] Ranpewqdde8[address] [place] [address]Dr. Nahed Yañez MCHC (RBC) [Mass/Vol] 31.7 g/dL Normal 29.9-35.2 [facility] Comment on above: Performed By: #### C BC ####[facility] Jnlcmupqfo3222 [place] [address]DrShaun Yañez MCV (RBC) [Entitic vol] 89.6 fL Normal 81.0-99.0 [facility] Comment on above: Performed By: #### C BC ####[facility] Lhyuwwbbaj[address] [place], [place] [address]DrShaun Yañez MONO # 0.5 103/ul Normal 0.3-0.8 [facility] Comment on above: Performed By: #### C BC ####[facility] Atkwklyqwq[address] [place], [place] [address]DrShaun Yañez Monocytes/100 WBC (Bld) 6.8 % Normal 1.7-12.0 [facility] Comment on above: Performed By: #### C BC ####[facility] Twtdvpugng[address] [place], [place] [address]DrShaun Yañez NEUT # 3.7 103/ul Normal 1.4-6.5 [facility] Comment on above: Performed By: #### C BC ####[facility] Aigifipqhp[address] [place], [place] [address]DrShaun Yañez Neutrophils/100 WBC (Bld) 50.9 % Normal 43.0-75.0 [facility] Comment on above: Performed By: #### C BC ####[facility] Qirjgcxygz[address] [place], [place] [address]DrShaun Yañez Platelet mean volume (Bld) [Entitic vol] 9.8 fL Normal 9.5-13.5 [facility] Comment on above: Performed By: #### C BC ####[facility] Thevxfgdex96[address] [place] [address]Dr. Nahed Yañez PLT 306 103/ul Normal 150-450 [facility] Comment on above: Performed By: #### C BC ####[facility] Iurifnfbmg[address] [place] [address]Dr. Nahed Yañez RBC 4.89 106/ul Normal 4.20-5.40 [facility] Comment on above: Performed By: #### C BC ####[facility] Smjyxlhfwh9[address] [place] [address]Dr. Nahed Yañez WBC 7.3 103/ul Normal 4.0-11.0 [facility] Comment on above: Performed By: #### C BC ####[facility] Vsfuzfcwgk7994 [place] [address]Dr. Nahed Yañez FREE THYROXINE INDEX T7on FTI 2.92 Normal 1.30-4.50 [facility] Comment on above: Performed By: #### B ELECTROMECHANISMS DESIGN DRAFTER, LIPID, T7, TSH, CMP ####[facility] [address]nc[address]jbe[address] [place], [place] [address]Dr. Nahed Yañez T3U 34.0 % Normal 30.0-39.0 [facility] Comment on above: Performed By: #### B ELECTROMECHANISMS DESIGN DRAFTER, LIPID, T7, TSH, CMP ####[facility] [address]sbzkxqne[address] [place], [place] [address]Dr. Nahed Yañez T4 [Mass/Vol] 8.60 ug/dL Normal 4.80-13.90 [facility] Comment on above: Performed By: #### B ELECTROMECHANISMS DESIGN DRAFTER, LIPID, T7, TSH, CMP ####[facility] [address]bbvckuars[address] [place], [place] [address]Dr. Nahed Yañez GLYCOHEMOGLOBIN A1Con 2021 ADA RECOMMENDATION SEE BELOW Normal [facility] Comment on above: Result Comment: ADA RECOMMENDED LIMIT 4.0 - 6.0 ADA THERAPEUTIC TARGET < 7.0 ACTION SUGGESTED > 7.0 Performed By: #### A 1C ####[facility] Uizjzafaqf[address] [place] [phone]. Nahed Yañez Glucose [Mass/Vol] 146 mg/dL Normal [facility] Comment on above: Performed By: #### A 1C ####[facility] Mowbycfamd4793 [place] [phone]. Nahed Yañez HbA1c (Bld) [Mass fraction] 6.7 % Critically high 4.5-6.2 [facility] Comment on above: Performed By: #### A 1C ####[facility] Kuagjywgiq4[address] [place] [phone]. Nahed Yañez IRONon 05-08-2022 Iron [Mass/Vol] 76.0 ug/dL Normal 50.0-170.0 [facility] Comment on above: Performed By: #### V ITAD, IRON ####[facility] Covbhdwefu[address] [place], [place] [address]Dr. Nahed Yañez LIPID PROFILEon 05-08-2022 CHOL-HDL RATIO NORM SEE BELOW Normal [facility] Comment on above: Result Comment: 3.3 - 4.4 LOW RISK 4.4 - 7.1 AVERAGE RISK 7.1 - 11.0 MODERATE RISK >11.0 HIGH RISK Performed By: #### B ELECTROMECHANISMS DESIGN DRAFTER, LIPID, T7, TSH, CMP ####[facility] Ptczbumydk2074 [place] [phone]. Nahed Yañez Cholesterol [Mass/Vol] 167 mg/dL Normal <=200 [facility] Comment on above: Performed By: #### B ELECTROMECHANISMS DESIGN DRAFTER, LIPID, T7, TSH, CMP ####[facility] Ddejpwibks4749 [place] [phone]. Nahed Yañez Cholesterol in HDL [Mass/Vol] 63 mg/dL Critically high 40-60 [facility] Comment on above: Performed By: #### B ELECTROMECHANISMS DESIGN DRAFTER, LIPID, T7, TSH, CMP ####[facility] Jvelekxxap2498 [place] [phone]. Nahed Yañez Cholesterol in LDL [Mass/Vol] 72.6 mg/dL Normal [facility] Comment on above: Performed By: #### B ELECTROMECHANISMS DESIGN DRAFTER, LIPID, T7, TSH, CMP ####[facility] Arrlwhubni8553 [place] [phone]. Nahed Yañez Cholesterol.total/Chol esterol in HDL [Mass ratio] 2.7 {ratio} Normal [facility] Comment on above: Performed By: #### B ELECTROMECHANISMS DESIGN DRAFTER, LIPID, T7, TSH, CMP ####[facility] Byxpkuvagp7451 [place] [phone]. Nahed Yañez HDL NORMAL > or = 60 mg/dl - LO W CARDIOVASCULAR RISK <40 mg/dl - HIGH CARDIOVASCULAR RISK Normal [facility] Comment on above: Performed By: #### B ELECTROMECHANISMS DESIGN DRAFTER, LIPID, T7, TSH, CMP ####[facility] Dgvmdgselc59[address] [place] [address]Dr. Nahed Yañez LDL CALC NORMAL SEE BELOW Normal [facility] Comment on above: Result Comment: <100 mg/dl OPTIMAL 100 - 129 mg/dl NEAR OR ABOVE OPTIMAL 130 - 159 mg/dl BORDERLINE HIGH 160 - 189 mg/dl HIGH >190 mg/dl VERY HIGH Performed By: #### B ELECTROMECHANISMS DESIGN DRAFTER, LIPID, T7, TSH, CMP ####[facility] Uwkmkkexmx4283 [place] [phone]. Nahed Yañez Triglyceride [Mass/Vol] 157 mg/dL Critically high <=150 [facility] Comment on above: Performed By: #### B ELECTROMECHANISMS DESIGN DRAFTER, LIPID, T7, TSH, CMP ####[facility] Oqhrnmrsbn0221 [place] [phone]. Nahed Yañez VLDL CALC 31.4 mg/dL Normal [facility] Comment on above: Performed By: #### B ELECTROMECHANISMS DESIGN DRAFTER, LIPID, T7, TSH, CMP ####[facility] Qmqgszdfrd4046 [place] [phone]. Nahed Yañez OCC BLD IMMUNO SCREENon 04-14 OCCULT BLOOD Negative Normal NEGATIVE [facility] Comment on above: Performed By: #### O BSCRN ####[facility] Ezaelvyewo[address] [place] [phone]. Nahed Yañez PROF 14(COMP METB)on 022 Albumin [Mass/Vol] 3.7 g/dL Normal 3.4-5.0 [facility] Comment on above: Performed By: #### B ELECTROMECHANISMS DESIGN DRAFTER, LIPID, T7, TSH, CMP ####[facility] Qymvlkilvu5436 [place] [address]Dr. Nahed Yañez Albumin/Globulin [Mass ratio] 0.9 {ratio} Normal [facility] Comment on above: Performed By: #### B ELECTROMECHANISMS DESIGN DRAFTER, LIPID, T7, TSH, CMP ####[facility] [address]adgmpx[address] [place], [place] [address]Dr. Nahed Yañez ALP [Catalytic activity/Vol] 99 U/L Normal 46-116 [facility] Comment on above: Performed By: #### B ELECTROMECHANISMS DESIGN DRAFTER, LIPID, T7, TSH, CMP ####[facility] Wpqibndxpq[address] [place], [place] [address]Dr. Nahed Yañez ALT [Catalytic activity/Vol] 20 U/L Normal 14-59 [facility] Comment on above: Performed By: #### B ELECTROMECHANISMS DESIGN DRAFTER, LIPID, T7, TSH, CMP ####[facility] [address]faiteurqj[address] [place], [place] [address]Dr. Nahed Yañez Anion gap [Moles/Vol] 10.6 mmol/L Normal [facility] Comment on above: Performed By: #### B ELECTROMECHANISMS DESIGN DRAFTER, LIPID, T7, TSH, CMP ####[facility] [address]wrqyynu[address] [place], [place] [address]Dr. Nahed Yañez AST [Catalytic activity/Vol] 29 U/L Normal 15-37 [facility] Comment on above: Performed By: #### B ELECTROMECHANISMS DESIGN DRAFTER, LIPID, T7, TSH, CMP ####[facility] Kkmzutpljw[address] [place], [place] [address]Dr. Nahed Yañez Bilirubin [Mass/Vol] 0.4 mg/dL Normal 0.2-1.0 [facility] Comment on above: Performed By: #### B ELECTROMECHANISMS DESIGN DRAFTER, LIPID, T7, TSH, CMP ####[facility] [address]zy[address]cv[address] [place], [place] [address]Dr. Nahed Yañez Calcium [Mass/Vol] 9.3 mg/dL Normal 8.5-10.1 [facility] Comment on above: Performed By: #### B ELECTROMECHANISMS DESIGN DRAFTER, LIPID, T7, TSH, CMP ####[facility] Bcsvquwfkg34[address] [place] [address]Dr. Nahed Yañez Chloride [Moles/Vol] 100 mmol/L Normal 98-107 [facility] Comment on above: Performed By: #### B ELECTROMECHANISMS DESIGN DRAFTER, LIPID, T7, TSH, CMP ####[facility] Z[address]fdhzpz[address] [place], [place] [address]Dr. Nahed Yañez CO2 [Moles/Vol] 31.4 mmol/L Normal 21.0-32.0 [facility] Comment on above: Performed By: #### B ELECTROMECHANISMS DESIGN DRAFTER, LIPID, T7, TSH, CMP ####[facility] Rhijckmo[address] [place], [place] [address]Dr. Nahed Yañez Creatinine [Mass/Vol] 1.01 mg/dL Normal 0.55-1.02 [facility] Comment on above: Performed By: #### B ELECTROMECHANISMS DESIGN DRAFTER, LIPID, T7, TSH, CMP ####[facility] Qplmuzeagp[address] [place], [place] [address]Dr. Nahed Yañez EGFR-AF GERMAN >60 Normal >=60 [facility] Comment on above: Performed By: #### B ELECTROMECHANISMS DESIGN DRAFTER, LIPID, T7, TSH, CMP ####[facility] Kkpf[address]feu[address] [place], [place] [address]Dr. Nahed Yañez EGFR-NON AF GERMAN 56 mL/min/1.73m2 Critically low >=60 [facility] Comment on above: Performed By: #### B ELECTROMECHANISMS DESIGN DRAFTER, LIPID, T7, TSH, CMP ####[facility] Evadvjcoid[address] [place], [place] [address]Dr. Nahed Yañez Globulin (S) [Mass/Vol] 3.9 g/dL Normal [facility] Comment on above: Performed By: #### B ELECTROMECHANISMS DESIGN DRAFTER, LIPID, T7, TSH, CMP ####[facility] [address] [place] [address]Dr. Nahed Yañez Glucose [Mass/Vol] 111 mg/dL Critically high 74-106 [facility] Comment on above: Performed By: #### B ELECTROMECHANISMS DESIGN DRAFTER, LIPID, T7, TSH, CMP ####[facility] Ncyunjcecm[address] [place] [address]Dr. Nahed Yañez Potassium [Moles/Vol] 4.0 mmol/L Normal 3.5-5.1 [facility] Comment on above: Performed By: #### B ELECTROMECHANISMS DESIGN DRAFTER, LIPID, T7, TSH, CMP ####[facility] Wttzlziuut[address] [place] [address]Dr. Nahed Yañez Protein [Mass/Vol] 7.6 g/dL Normal 6.4-8.2 [facility] Comment on above: Performed By: #### B ELECTROMECHANISMS DESIGN DRAFTER, LIPID, T7, TSH, CMP ####[facility] [address] [place], [place] [address]Dr. Nahed Yañez Sodium [Moles/Vol] 138 mmol/L Normal 136-145 [facility] Comment on above: Performed By: #### B ELECTROMECHANISMS DESIGN DRAFTER, LIPID, T7, TSH, CMP ####[facility] [address] [place], [place] [address]Dr. Nahed Yañez Urea nitrogen [Mass/Vol] 17.0 mg/dL Normal 7.0-18.0 [facility] Comment on above: Performed By: #### B ELECTROMECHANISMS DESIGN DRAFTER, LIPID, T7, TSH, CMP ####[facility] Brgrxesift[address] [place], [place] [address]Dr. Nahed Yañez Urea nitrogen/Creatinine [Mass ratio] 16.8 mg/mg Normal [facility] Comment on above: Performed By: #### B ELECTROMECHANISMS DESIGN DRAFTER, LIPID, T7, TSH, CMP ####[facility] [address] [place], [place] [address]Dr. Nahed Yañez TSHon 05-08-2022 TSH 2.835 uIU/mL Normal 0.358-3.740 [facility] Comment on above: Performed By: #### B ELECTROMECHANISMS DESIGN DRAFTER, LIPID, T7, TSH, CMP ####[facility] Xnfeafzqtl[address] [place], [place] [address]Dr. Nahed Yañez VITAMIN D 25 OHon 05-08-2022 VIT D 25-OH 13.4 ng/mL Normal [facility] Comment on above: Performed By: #### V ITAD, IRON ####[facility] [address] [place] [id number]. Nahed Yañez VIT D RANGES SEE BELOW Normal [facility] Comment on above: Result Comment: <20 ng/mL Vit D deficient 20 - <30 ng/mL Vit D insufficient 30 - 100 ng/mL Vit D sufficient >100 ng/mL Potential Toxicity Performed By: #### V GRAEME IRON ####[facility] Y[address] [place] [id number]. Nahed Yañez CARDIAC FRANCISCO 3-6on 2 CK [Catalytic activity/Vol] 37 U/L Normal 26-192 [facility] Comment on above: Performed By: #### C MREP ####[facility] U[address]chkv[address]fw[address] [place] [address]Dr. Nahed Otilio CK.MB [Mass/Vol] 0.79 ng/mL Normal <=3.60 [facility] Comment on above: Performed By: #### C MREP ####[facility] [address] [place], [place] [address]Dr. Nahed Yañez HSTROP 55.3 pg/mL Critically high 4.0-51.3 The [facility] Comment on above: Result Comment: CUT- OFF POINTS HAVE BEEN ESTABLISHED BASED ON THE FOURTH UNIVERSAL DEFINITIONS OF MYOCARDIALINFARCTION. THE UPPER REFERENCE LIMIT (URL) OF TROPONIN, DEFINED THE 99TH PERCENTILE OFcTnI DISTRIBUTION IN A REFERENCE POPULATION, HAS BEEN CONFIRMED THE DECISION THRESHOLDFOR CT DIAGNOSIS. Performed By: #### C MREP ####[facility] [address]vxe[address]uc[address] [place] [address]Dr. Nahed Otilio CK [Catalytic activity/Vol] 49 U/L Normal 26-192 [facility] Comment on above: Performed By: #### C MREP ####[facility] Inwhxhqmct[address] [place] [id number]. Nahed Otilio CK.MB [Mass/Vol] 0.71 ng/mL Normal <=3.60 [facility] Comment on above: Performed By: #### C MREP ####[facility] Ekpevmyepd[address] [place] [id number] Nahed Yañez HSTROP 62.6 pg/mL Critically high 4.0-51.3 [facility] Comment on above: Result Comment: CUT- OFF POINTS HAVE BEEN ESTABLISHED BASED ON THE FOURTH UNIVERSAL DEFINITIONS OF MYOCARDIALINFARCTION. THE UPPER REFERENCE LIMIT (URL) OF TROPONIN, DEFINED THE 99TH PERCENTILE OFcTnI DISTRIBUTION IN A REFERENCE POPULATION, HAS BEEN CONFIRMED THE DECISION THRESHOLDFOR CT DIAGNOSIS. Performed By: #### C MREP ####[facility] [address] [place], [place] [address]Ow. Nahed Yañez Covid-19 PCR (CVDTBH)on 01-13 SARS-CoV-2 (COVID-19) RNA MIRNA+probe Ql (Unsp spec) Not detected Normal NOT DETECTED The [facility] Comment on above: Result Comment: When diagnostic testing is negative, the possibility of a false negative should be considered inthe context of a patient's recent exposures and the presence of clinical signs and symptomsconsistent with SARS-CoV-2.This test is not yet approved or cleared by the [place] FDA. When there are no FDA-approved or cleared tests available, and other criteria are met, FDA can make tests available under an emergency access mechanism called an Emergency Use Authorization (EUA). The EUA for this test is supported by the Certified Adapted Physical Educator of Health and Human Service's declaration that circumstances exist to justify the emergency use of in vitro diagnostics for the detection and/or diagnosis of the virus that causes COVID-19. This EUA will remain in effect for the duration of the COVID-19 declaration justifying emergency of IVDs, unless it is terminated or revoked by the FDA (after which the test may no longer be used). Performed By: #### C VDTBH ####[facility] [address] [place], [place] [address]To. Nahed Yañez ECHO LIMITED STUDYon 022 ECHO LIMITED STUDY Normal [facility] GLYCOHEMOGLOBIN A1Con 2021 ADA RECOMMENDATION SEE BELOW Normal [facility] Comment on above: Result Comment: ADA RECOMMENDED LIMIT 4.0 - 6.0 ADA THERAPEUTIC TARGET < 7.0 ACTION SUGGESTED > 7.0 Performed By: #### A 1C ####[facility] [address] [place], [place] [address]Sg. Nahed Yañez Glucose [Mass/Vol] 140 mg/dL Normal [facility] Comment on above: Performed By: #### A 1C ####[facility] [address] [place], [place] [address]Tt. Nahed Yañez HbA1c (Bld) [Mass fraction] 6.5 % Critically high 4.5-6.2 [facility] Comment on above: Performed By: #### A 1C ####[facility] Rxawsgxavv[address] [place] [phone]. Nahed Yañez LIPID PROFILEon 01-31-2022 CHOL-HDL RATIO NORM SEE BELOW Normal [facility] Comment on above: Result Comment: 3.3 - 4.4 LOW RISK 4.4 - 7.1 AVERAGE RISK 7.1 - 11.0 MODERATE RISK >11.0 HIGH RISK Performed By: #### L IPID ####[facility] [address]lx[address]cya[address] [place] [phone]. Nahed Yañez Cholesterol [Mass/Vol] 152 mg/dL Normal <=200 [facility] Comment on above: Performed By: #### L IPID ####[facility] Exz[address]iq[address] [place] [phone]. Nahed Yañez Cholesterol in HDL [Mass/Vol] 74 mg/dL Critically high 40-60 [facility] Comment on above: Performed By: #### L IPID ####[facility] Yhs[address]uz[address]mh[address] [place] [phone]. Nahed Yañez Cholesterol in LDL [Mass/Vol] 62.8 mg/dL Normal [facility] Comment on above: Performed By: #### L IPID ####[facility] Nfyxquqwpm63[address] [place] [phone]. Nahed Yañez Cholesterol.total/Chol esterol in HDL [Mass ratio] 2.1 {ratio} Normal [facility] Comment on above: Performed By: #### L IPID ####[facility] [address] [place] [phone]. Nahed Yañez HDL NORMAL > or = 60 mg/dl - LO W CARDIOVASCULAR RISK <40 mg/dl - HIGH CARDIOVASCULAR RISK Normal [facility] Comment on above: Performed By: #### L IPID ####[facility] [address]cf[address] [place] [address]Dr. Nahed Yañez LDL CALC NORMAL SEE BELOW Normal [facility] Comment on above: Result Comment: <100 mg/dl OPTIMAL 100 - 129 mg/dl NEAR OR ABOVE OPTIMAL 130 - 159 mg/dl BORDERLINE HIGH 160 - 189 mg/dl HIGH >190 mg/dl VERY HIGH Performed By: #### L IPID ####[facility] [address]ecgc[address] [place] [address]Dr. Nahed Yañez Triglyceride [Mass/Vol] 76 mg/dL Normal <=150 [facility] Comment on above: Performed By: #### L IPID ####[facility] [address]awgmrmkt3676 [place] [address]Dr. Nahed Yañez VLDL CALC 15.2 mg/dL Normal [facility] Comment on above: Performed By: #### L IPID ####[facility] X[address]kvixglu[address] [place] [address]Dr. Nahed Yañez XR CHEST 1 Von 01-31-2022 XR CHEST 1 V Normal [facility] BNPon 01-30-2022 Natriuretic peptide B (Bld) [Mass/Vol] 150.0 pg/mL Normal <=900.0 [facility] Comment on above: Performed By: #### B MP, BNP, CMADM ####[facility] Norfnneolq[address] [place] [address]Dr. Nahed Yañez CARDIAC FRANCISCO ADMITon 022 CK [Catalytic activity/Vol] 88 U/L Normal 26-192 [facility] Comment on above: Performed By: #### B MP, BNP, CMADM ####[facility] M[address]yjrqcvd70[address] [place] [address]Dr. Nahed Yañez CK.MB [Mass/Vol] 1.26 ng/mL Normal <=3.60 [facility] Comment on above: Performed By: #### B MP, BNP, CMADM ####[facility] Ozkw[address]scia[address] [place] [address]Dr. Nahed Yañez HSTROP 69.3 pg/mL Critically high 4.0-51.3 [facility] Comment on above: Result Comment: CUT- OFF POINTS HAVE BEEN ESTABLISHED BASED ON THE FOURTH UNIVERSAL DEFINITIONS OF MYOCARDIALINFARCTION. THE UPPER REFERENCE LIMIT (URL) OF TROPONIN, DEFINED THE 99TH PERCENTILE OFcTnI DISTRIBUTION IN A REFERENCE POPULATION, HAS BEEN CONFIRMED THE DECISION THRESHOLDFOR CT DIAGNOSIS. Performed By: #### B MP, BNP, CMADM ####[facility] Dcjqxvmpdh1242 [place] [address]Dr. Nahed Yañez ANDRE 59 ng/mL Normal 9-82 [facility] Comment on above: Performed By: #### B MP, BNP, CMADM ####[facility] Cwuog[address]ymrh[address] [place] [address]Dr. Nahed Yañez CBC AUTO DIFFon 01-30-2022 BASO # 0.0 103/ul Normal 0.0-0.1 [facility] Comment on above: Performed By: #### C BC ####[facility] Kzig[address]obvbi[address] [place] [address]Dr. Nahed Yañez Basophils/100 WBC (Bld) 0.2 % Normal 0.2-2.0 [facility] Comment on above: Performed By: #### C BC ####[facility] Gsma[address]cgyb[address] [place] [address]Dr. Nahed Yañez EO # 0.1 103/ul Normal 0.0-0.7 [facility] Comment on above: Performed By: #### C BC ####[facility] Vlejxepuvu[address] [place] [address]Dr. Nahed Yañez Eosinophils/100 WBC (Bld) 0.8 % Critically low 0.9-7.0 [facility] Comment on above: Performed By: #### C BC ####[facility] Lv[address]ooofvt54[address] [place] [address]Dr. Nahed Yañez Erythrocyte distribution width (RBC) [Ratio] 14.9 % Normal 11.0-15.0 [facility] Comment on above: Performed By: #### C BC ####[facility] Jzoqeyxuuy[address] [place] [address]Dr. Nahed Yañez Hematocrit (Bld) [Volume fraction] 45.8 % Normal 36.0-48.0 [facility] Comment on above: Performed By: #### C BC ####[facility] Grzktmrkrv0324 [place] [address]Dr. Nahed Yañez Hemoglobin (Bld) [Mass/Vol] 14.7 g/dL Normal 12.0-16.0 [facility] Comment on above: Performed By: #### C BC ####[facility] Revgxayztb37[address] [place] [address]Dr. Nahed Otilio IG # 0.07 10e3/ul Critically high 0.00-0.03 [facility] Comment on above: Performed By: #### C BC ####[facility] Dtoypxmhzg3637 [place] [address]Dr. Nahed Yañez IG % 0.4 % Normal 0.0-0.5 [facility] Comment on above: Performed By: #### C BC ####[facility] P[address]axcuwd[address] [place] [address]Dr. Rosemarieashley Yañez LYMPH # 2.3 103/ul Normal 1.2-3.8 [facility] Comment on above: Performed By: #### C BC ####[facility] Oxsrswpwyo[address] [place] [address]Dr. Rosemarieashley Yañez Lymphocytes/100 WBC (Bld) 12.5 % Critically low 20.5-60.0 [facility] Comment on above: Performed By: #### C BC ####[facility] Ydwyvsvsit[address]956 [place] [address]Dr. Rosemarieashley Yañez MANUAL DIFF REQ NO Normal [facility] Comment on above: Performed By: #### C BC ####[facility] [address] [place], [place] [address]Dr. Nahed Yañez MCH (RBC) [Entitic mass] 28.0 pg Normal 26.7-34.0 [facility] Comment on above: Performed By: #### C BC ####[facility] O[address]unycnv[address] [place] [phone]. Nahed Yañez MCHC (RBC) [Mass/Vol] 32.1 g/dL Normal 29.9-35.2 [facility] Comment on above: Performed By: #### C BC ####[facility] Llisdomchb0413 [place] [phone]. Nahed Yañez MCV (RBC) [Entitic vol] 87.2 fL Normal 81.0-99.0 [facility] Comment on above: Performed By: #### C BC ####[facility] Eymxfcsnig26[address] [place] [phone]. Nahed Yañez MONO # 0.9 103/ul Critically high 0.3-0.8 [facility] Comment on above: Performed By: #### C BC ####[facility] Ahlgbhroki7[address] [place] [phone]. Nahed Otilio Monocytes/100 WBC (Bld) 5.1 % Normal 1.7-12.0 [facility] Comment on above: Performed By: #### C BC ####[facility] Dqpvyasset1358 [place] [phone]. Nahed Yañez NEUT # 14.6 103/ul Critically high 1.4-6.5 [facility] Comment on above: Performed By: #### C BC ####[facility] Bqjwvdwklj4103 [place] [phone]. Nahed Yañez Neutrophils/100 WBC (Bld) 81.0 % Critically high 43.0-75.0 [facility] Comment on above: Performed By: #### C BC ####[facility] Qxanixmtpn4697 [place] [phone]. Nahed Yañez Platelet mean volume (Bld) [Entitic vol] 10.3 fL Normal 9.5-13.5 [facility] Comment on above: Performed By: #### C BC ####[facility] Wghvlxeufy2834 [place] [phone]. Nahed Otilio PLT 280 103/ul Normal 150-450 [facility] Comment on above: Performed By: #### C BC ####[facility] Fkazyezihw5156 [place] [address]Dr. Nahed Yañez RBC 5.25 106/ul Normal 4.20-5.40 [facility] Comment on above: Performed By: #### C BC ####[facility] Ueruirnfun[address] [place] [address]Dr. Nahed Yañez WBC 18.1 103/ul Critically high 4.0-11.0 [facility] Comment on above: Performed By: #### C BC ####[facility] Trxzdhsabe7146 [place] [address]Dr. Nahed Yañez PROF CHEM 8 (BAS METB)on Anion gap [Moles/Vol] 13.5 mmol/L Normal [facility] Comment on above: Performed By: #### B MP, BNP, CMADM ####[facility] Hcymowujyk34[address] [place] [address]Dr. Nahed Yañez Calcium [Mass/Vol] 9.5 mg/dL Normal 8.5-10.1 [facility] Comment on above: Performed By: #### B MP, BNP, CMADM ####[facility] [address] [place], [place] [address]Dr. Nahed Yañez Chloride [Moles/Vol] 102 mmol/L Normal 98-107 [facility] Comment on above: Performed By: #### B MP, BNP, CMADM ####[facility] Jslkpjbbev[address]69 [place] [address]Dr. Nahed Yañez CO2 [Moles/Vol] 26.6 mmol/L Normal 21.0-32.0 [facility] Comment on above: Performed By: #### B MP, BNP, CMADM ####[facility] Hcxnfslawv8995 [place] [address]Dr. Nahed Yañez Creatinine [Mass/Vol] 1.06 mg/dL Critically high 0.55-1.02 [facility] Comment on above: Performed By: #### B MP, BNP, CMADM ####[facility] Chmqzkjvdd47[address] [place] [address]Dr. Nahed Yañez EGFR-AF GERMAN >60 Normal >=60 [facility] Comment on above: Performed By: #### B MP, BNP, CMADM ####[facility] Mzcvqfaqxg[address]83 [place] [address]Dr. Nahed Yañez EGFR-NON AF GERMAN 53 mL/min/1.73m2 Critically low >=60 [facility] Comment on above: Performed By: #### B MP, BNP, CMADM ####[facility] Xikxetqrdi[address] [place] [address]Dr. Nahed Yañez Glucose [Mass/Vol] 108 mg/dL Critically high 74-106 [facility] Comment on above: Performed By: #### B MP, BNP, CMADM ####[facility] Kryoxrbfgf26[address] [place] [address]Dr. Nahed Yañez Potassium [Moles/Vol] 4.1 mmol/L Normal 3.5-5.1 [facility] Comment on above: Performed By: #### B MP, BNP, CMADM ####[facility] Kdjbjpinyx2615 [place] [address]Dr. Nahed Yañez Sodium [Moles/Vol] 138 mmol/L Normal 136-145 [facility] Comment on above: Performed By: #### B MP, BNP, CMADM ####[facility] Wdgyfkczax6301 [place] [address]Dr. Nahed Yañez Urea nitrogen [Mass/Vol] 9.0 mg/dL Normal 7.0-18.0 [facility] Comment on above: Performed By: #### B MP, BNP, CMADM ####[facility] Gkbgniwqoa[address]61 [place] [address]Dr. Nahed Yañez Urea nitrogen/Creatinine [Mass ratio] 8.5 mg/mg Normal [facility] Comment on above: Performed By: #### B MP, BNP, CMADM ####[facility] Dgpytbwbht8[address] [place] [address]Dr. Rosemarieashley Otilio Cardiovascular Lab Reporton 11-03-2021 Cardiovascular Lab Report [facility] Patient [facility] MR #: [id number] Physician: Ehab Eltahawy, Department of M.D. Medicine Service Date: 11/02/2021 Division of Birthdate: 1960 Cardiology Room #: 4AB [id number] [facility] [address] [address] Cardiovascular Laboratory Report FINAL IMPRESSIONS: 1. Severe, hazy mid left anterior descending stenosis successfully treated by balloon angioplasty and Synergy drug-eluting stent placement. 2. 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 3. 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 4. Low normal global left ventricular systolic function by noninvasive imaging with wall motion abnormalities. RECOMMENDATIONS: 1. Aspirin 81 mg lifelong. 2. Plavix 75 mg daily for a minimum of 1 year. 3. Aggressive cardiovascular risk factor modification. 4. Optimal medical therapy should include high-intensity statin therapy, a beta-ernst, and an angiotensin-convertin g enzyme inhibitor. 5. The patient will be adequately hydrated with IV saline to reduce the risk of contrast-induced nephropathy. 6. Further recommendations deferred to the Inpatient Services. PROCEDURES: Ultrasound-guided access to the right common femoral artery, limited femoral angiography, bilateral selective coronary angiography, percutaneous balloon angioplasty and Synergy drug-eluting stent placement of the left anterior descending coronary artery, placement of a 6-[place] MynxGrip closure device. METHODS: After risks, benefits, and alternatives were explained, written informed consent was obtained. The patient was prepped and draped in usual sterile fashion over both groins. Using 1% lidocaine solution, local infiltration anesthesia was achieved over the right groin. Under ultrasound guidance, a micropuncture kit was used to access the right common femoral artery. This was upsized to a 6-[place] 11 cm sheath. Angiography via the 6-[place] sheath was performed. Bilateral selective coronary angiography was performed using JL4 and JR4 catheters. After reviewing the images, it was elected to proceed with an interventional procedure. A 6-[place] XB3.5 guide catheter was advanced over a J-wire and coaxially engaged into the left main ostium. A 0.014 Runthrough NS wire was advanced through the catheter across the target lesion and positioned distally. Balloon angioplasty was performed using a 2.5 x 15 mm noncompliant balloon. An inadequate result was treated using a 3.0 x 16 mm Synergy drug-eluting stent. Repeat images showed an optimal result. Final images showed DAVIDA-3 flow with no dissection, thrombus, or distal wire trauma. Given concerns regarding proximal spasm of the right coronary artery, angiography was repeated initially using a 6-[place] 3DRC catheter and subsequently using a 4-[place] JR4 catheter. After administration of intracoronary nitroglycerin, the concerning lesion almost completely resolved. There was a residual mild stenosis. All catheters removed. A 6-[place] MynxGrip closure device was deployed per protocol achieving optimal hemostasis. Overall, the patient tolerated the procedure well. There were no overt complications. She was to be transferred to the holding area in stable condition. FINDINGS: Hemodynamics. AO 121/68 (82). LEFT VENTRICULOGRAPHY: This was not performed. Ejection fraction is noted to be 50% with wall motion abnormalities on an echocardiogram. CORONARY ARTERIES: 1. Left main coronary artery. This arises from the left coronary cusp. It bifurcates into the left anterior descending and left circumflex coronary artery. It is free of significant stenosis. 2. Left anterior descending coronary artery. Baseline imaging shows a short segment 80% hazy stenosis in the midportion of the vessel of the bifurcation with a prominent 1st diagonal. This was reduced to 0% by balloon angioplasty and placement of a 3.0 x 16 mm Synergy drug-eluting stent. Final images showed DAVIDA-3 flow with no dissection, thrombus, or distal wire trauma. 3. Left circumflex coronary artery. This shows a 30% ostial stenosis and is otherwise no obstructive. It gives rise to a minute first obtuse marginal and a large branching second obtuse marginal before continuing as a small caliber AV groove branch. 4. Right coronary artery. This is a dominant vessel giving rise into posterior descending and posterolateral branches. It shows a 30% proximal stenosis with superimposed spasm that improved significantly after intracoronary nitroglycerin. 5. Limited femoral angiography shows mild plaque and anatomy suitable for closure device. INDICATION: [id number] myocardial infarction. Electronically Signed by: Gasper Avendano M.D. 11/21/2021 02:07 P Gasper Avendano M.D (more content not included)... Normal The [facility] CBC COMPLETE BLOOD COUNTon 0 - Erythrocyte distribution width (RBC) [Ratio] 14.7 % Normal 11.5-15.0 [facility] Comment on above: Order Comment: No: D o not add to previous draw Performed By: #### 3 5200, 12757 #### [facility] [address] [place] [address], [facility] Hematocrit (Bld) [Volume fraction] 34.5 % Low 36.0-45.0 [facility] Comment on above: Order Comment: No: D o not add to previous draw Performed By: #### 3 5199, 28896 #### [facility] [address] [place] [address], [facility] Hemoglobin (Bld) [Mass/Vol] 10.6 g/dL Low 12.0-15.0 [facility] Comment on above: Order Comment: No: D o not add to previous draw Performed By: #### 3 5199, 98396 #### [facility] [address] [place] [address], [place] MCH (RBC) [Entitic mass] 28.1 pg Normal 27.0-33.0 [facility] Comment on above: Order Comment: No: D o not add to previous draw Performed By: #### 3 5200, 70752 #### [facility] [address] [place] [address], [place] MCHC (RBC) [Mass/Vol] 30.7 g/dL Low 32.0-35.0 [facility] Comment on above: Order Comment: No: D o not add to previous draw Performed By: #### 3 5200, 84261 #### [facility] [address] [place] [address], [place] MCV (RBC) [Entitic vol] 91.5 fL Normal 82.0-98.0 [facility] Comment on above: Order Comment: No: D o not add to previous draw Performed By: #### 3 5200, 56860 #### [facility] [address] [place] [address], [facility] Nucleated RBC/100 WBC (Bld) [Ratio] 0 % Normal 0-0 [facility] Comment on above: Order Comment: No: D o not add to previous draw Performed By: #### 3 5200, 31663 #### [facility] [address] [place] [address], [place] PLAT CNT 219 10*3/uL Normal 150-400 [facility] Comment on above: Order Comment: No: D o not add to previous draw Performed By: #### 3 5200, 30950 #### [facility] [address] [place] [id number], [facility] RBC (Bld) [#/Vol] 3.77 10*6/uL Low 3.80-5.00 [facility] Comment on above: Order Comment: No: D o not add to previous draw Performed By: #### 3 5200, 74538 #### [facility] [address] [place] [address], [facility] WBC (Bld) [#/Vol] 13.64 10*3/uL High 4.00-10.60 [facility] Comment on above: Order Comment: No: D o not add to previous draw Performed By: #### 3 5200, 70868 #### [facility] [address] [place] [id number], [facility] HEMOGLOBIN A1Con 11-02-2021 Glucose [Moles/Vol] 140 mmol/L Normal [facility] Comment on above: Order Comment: No: D o not add to previous draw Performed By: #### 3 1791 #### [facility] [address] [place] [address], [facility] HbA1c (Bld) [Mass fraction] 6.5 % High 4.0-6.0 [facility] Comment on above: Order Comment: No: D o not add to previous draw Performed By: #### 3 1791 #### [facility] [address] [place] [address], [facility] LIPID PROFILEon 11-02-2021 Cholesterol [Mass/Vol] 171 mg/dL Normal 120-200 Th e [facility] Comment on above: Order Comment: No: D o not add to previous draw Result Comment: CHOL ESTEROL REFERENCE RANGE: 20 YEARS AND OLDER CARDIOVASCULAR RISK Less than 200 mg/dl Low Risk 200 to 239 mg/dl Borderline Risk 240 mg/dl and greater High Risk Performed By: #### 3 5200, 19009 #### [facility] [address] [place] [address], [facility] Cholesterol in HDL [Mass/Vol] 57 mg/dL Normal 23-92 The [facility] Comment on above: Order Comment: No: D o not add to previous draw Result Comment: Slig ht variation in normal range could be due to gender and/or age. HDL CHOLESTEROL REFERENCE RANGE: 20 years and older Cardiovascular Risk > or =60 mg/dL Desirable 40 TO 59 mg/dL Low Risk <40 mg/dL High Risk Performed By: #### 3 5200, 92421 #### [facility] [address] [place] [address], [facility] Cholesterol in LDL [Mass/Vol] 89 mg/dL Normal 0-130 The [facility] Comment on above: Order Comment: No: D o not add to previous draw Result Comment: LDL IS A CALCULATION LDL IS ONLY VALID IF THE TRIG IS LESS THAN 400. Performed By: #### 3 5200, 50533 #### [facility] [address] [place] [address], [place] Cholesterol.total/Chol esterol in HDL [Mass ratio] 3.0 {ratio} Normal .0-4.5 [facility] Comment on above: Order Comment: No: D o not add to previous draw Performed By: #### 3 5200, 49861 #### [facility] [address] [place] [address], [place] NON-HDL CHOLESTEROL 114 mg/dL Normal [facility] Comment on above: Order Comment: No: D o not add to previous draw Performed By: #### 3 5200, 29611 #### [facility] [address] [facility] [place] [address], [facility] Triglyceride [Mass/Vol] 124 mg/dL Normal 40-149 [facility] Comment on above: Order Comment: No: D o not add to previous draw Result Comment: TRIG LYCERIDE REFERENCE RANGE: 20 YEARS AND OLDER CARDIOVASCULAR RISK LESS THAN 150 mg/dl LOW RISK 150 TO 199 mg/dl BORDERLINE RISK 200 mg/dl AND GREATER HIGH RISK Performed By: #### 3 5200, 30266 #### [facility] [address] [facility] [place] [address], [facility] VLDL CHOL 25 mg/dL Normal 0-40 [facility] Comment on above: Order Comment: No: D o not add to previous draw Performed By: #### 3 5200, 30615 #### [facility] [address] TROPONIN-Ion 11-02-2021 Troponin I.cardiac [Mass/Vol] 0.14 ng/mL Critically high 0.00-0.04 [facility] Comment on above: Result Comment: M-NH EVIOUS CRITICAL RESULT REFERENCE RANGES: 0.00 - 0.04 ng/ml NORMAL 0.05 - 0.50 ng/ml INDETERMINATE > 0.50 ng/ml CONSISTENT WITH AN M.I. Performed By: #### 3 5200, 60961 #### [facility] [address] [place] [address], [facility] Troponin I.cardiac [Mass/Vol] 0.19 ng/mL Critically high 0.00-0.04 The [facility] Comment on above: Order Comment: No: D o not add to previous draw Result Comment: M-NH EVIOUS CRITICAL RESULT REFERENCE RANGES: 0.00 - 0.04 ng/ml NORMAL 0.05 - 0.50 ng/ml INDETERMINATE > 0.50 ng/ml CONSISTENT WITH AN M.I. Performed By: #### 3 5200 #### [facility] [address] [place] [address], [facility] TYPE AND SCREENon 11-02-2021 ABO INTERPRETATION O Normal [facility] Comment on above: Performed By: #### 3 5200, 02856 #### [facility] [address] [place] [address], [facility] RH INTERPRETATION Positive Normal [facility] Comment on above: Performed By: #### 3 5200, 39549 #### [facility] [address] [place] [address], [facility] UFH HEPARIN ASSAYon 11-03-19 UNFRACTIONATED HEPARIN 0.76 IU/mL High 0.30-0.70 Th e [facility] Comment on above: Result Comment: Clare roxaban and Apixaban will interfere with the anti Xa assay used to monitor UFH and LMWH. Performed By: #### 3 5200, 85496 #### [facility] [address] UNFRACTIONATED HEPARIN 0.96 IU/mL Critically high 0.30-0.7 0 [facility] Comment on above: Result Comment: Resu lt checked and called. Accurately read back by Kathy Suárez RN at 0548 Rivaroxaban and Apixaban will interfere with the anti Xa assay used to monitor UFH and LMWH. Performed By: #### 3 0477 #### [facility] [address] [place] [address], [facility] APTTon 11-01-2021 aPTT Coag (Bld) [Time] 28.6 s Normal 25.0-35.0 Th e [facility] Comment on above: Order Comment: No: D o not add to previous draw Result Comment: ALL RESULTS MUST BE INTERPRETED WITH RESPECT TO BLOOD DRAWING ARTIFACT OR DILUTION ERROR OF ANTICOAGULANT AT THE TIME OF SAMPLING. THE APTT SHOULD NOT BE USED TO MONITOR UNFRACTIONATED HEPARIN THERAPY, THIS LABORATORY NO LONGER HAS AN ESTABLISHED THERAPEUTIC RANGE BASED ON THE APTT. IT IS RECOMMENDED THAT THE UFH - HEPARIN ASSAY (ANTI-XA ACTIVITY) BE USED FOR THIS PURPOSE. Performed By: #### 3 5200, 99246 #### [facility] [address] BNPon 11-01-2021 Natriuretic peptide B (Bld) [Mass/Vol] 9643.0 pg/mL Critically high <=900.0 [facility] Comment on above: Performed By: #### C MP, BNP, HSTROPN ####[facility] [address] [place], [place] [address]Dr. Nahed Yañez BNP (B-TYPE NATRIURETIC PEPT AYLEEN)on 11-01-2021 Natriuretic peptide B (Bld) [Mass/Vol] 768 pg/mL High 0-100 The [facility] Comment on above: Order Comment: No: D o not add to previous draw Result Comment: Give n the appropriate clinical setting a BNP result of >100 pg/mL indicates congestive heart failure. Performed By: #### 8 5123 #### [facility] [address] CBC AUTO DIFFon 11-01-2021 BASO # 0.0 103/ul Normal 0.0-0.1 [facility] Comment on above: Performed By: #### C BC ####[facility] [address] [place], [place] [address]Dr. Nahed Yañez Basophils/100 WBC (Bld) 0.1 % Critically low 0.2-2.0 The [facility] Comment on above: Performed By: #### C BC ####[facility] [address] [place], [place] [address]Dr. Nahed Yañez EO # 0.0 103/ul Normal 0.0-0.7 The [facility] Comment on above: Performed By: #### C BC ####[facility] [address] [place], [place] [address]Dr. Nahed Yañez Eosinophils/100 WBC (Bld) 0.0 % Critically low 0.9-7.0 The [facility] Comment on above: Performed By: #### C BC ####[facility] [address] [place] [address]Dr. Nahed Yañez Erythrocyte distribution width (RBC) [Ratio] 14.7 % Normal 11.0-15.0 [facility] Comment on above: Performed By: #### C BC ####[facility] [address] [place] [address]Dr. Nahed Yañez Hematocrit (Bld) [Volume fraction] 36.1 % Normal 36.0-48.0 [facility] Comment on above: Performed By: #### C BC ####[facility] [address] [place] [address]Dr. Nahed Yañez Hemoglobin (Bld) [Mass/Vol] 11.1 g/dL Critically low 12.0-16.0 [facility] Comment on above: Result Comment: IV a ntibiotics Performed By: #### C BC ####[facility] [address] [place], [place] [address]Dr. Nahed Yañez IG # 0.09 10e3/ul Critically high 0.00-0.03 [facility] Comment on above: Performed By: #### C BC ####[facility] [address] [place], [place] [address]Dr. Nahed Yañez IG % 0.7 % Critically high 0.0-0.5 [facility] Comment on above: Performed By: #### C BC ####[facility] [address] [place], [place] [address]Dr. Nahed Yañez LYMPH # 0.6 103/ul Critically low 1.2-3.8 The [facility] Comment on above: Performed By: #### C BC ####[facility] [address] [place] [address]Dr. Nahed Yañez Lymphocytes/100 WBC (Bld) 4.8 % Critically low 20.5-60.0 [facility] Comment on above: Performed By: #### C BC ####[facility] [address] [place], [place] [address]Dr. Nahed Yañez MANUAL DIFF REQ NO Normal The [facility] Comment on above: Performed By: #### C BC ####[facility] [address] [place] [id number]. Nahed Yañez MCH (RBC) [Entitic mass] 28.2 pg Normal 26.7-34.0 [facility] Comment on above: Performed By: #### C BC ####[facility] [address] [place] [id number]. Nahed Yañez MCHC (RBC) [Mass/Vol] 30.7 g/dL Normal 29.9-35.2 [facility] Comment on above: Performed By: #### C BC ####[facility] [address] [place] [address]Dr. Nahed Otilio MCV (RBC) [Entitic vol] 91.9 fL Normal 81.0-99.0 The [facility] Comment on above: Performed By: #### C BC ####[facility] [address] [place], [place] [address]DrShaun Yañez MONO # 0.2 103/ul Critically low 0.3-0.8 [facility] Comment on above: Performed By: #### C BC ####[facility] [address] [place] [address]Dr. Rosemarieashley Yañez Monocytes/100 WBC (Bld) 1.7 % Normal 1.7-12.0 The [facility] Comment on above: Performed By: #### C BC ####[facility] [address] [place], [place] [address]Dr. Rosemarieashley Otilio NEUT # 11.2 103/ul Critically high 1.4-6.5 The [facility] Comment on above: Performed By: #### C BC ####[facility] [address] [place], [place] [address]DrShaun Yañez Neutrophils/100 WBC (Bld) 92.7 % Critically high 43.0-75.0 The [facility] Comment on above: Performed By: #### C BC ####[facility] [address] [place], [place] [address]DrShaun Yañez Platelet mean volume (Bld) [Entitic vol] 11.1 fL Normal 9.5-13.5 The [facility] Comment on above: Performed By: #### C BC ####[facility] [address] [place], [place] [address]Wa. Nahed Yañez PLT 213 103/ul Normal 150-450 The [facility] Comment on above: Performed By: #### C BC ####[facility] [address] [place], [place] [address]Tl. Nahed Yañez RBC 3.93 106/ul Critically low 4.20-5.40 The [facility] Comment on above: Performed By: #### C BC ####[facility] [address] [place], [place] [address]Jq. Nahed Yañez WBC 12.0 103/ul Critically high 4.0-11.0 The [facility] Comment on above: Performed By: #### C BC ####[facility] [address] [place], [place] [address]Gu. Nahed Yañez CBC W/DIFFon 11-01-2021 ABS IMM GRANS 0.2 10*3/uL Normal 0.0-0.2 The [facility] Comment on above: Order Comment: No: D o not add to previous draw Performed By: #### 3 7040, 90242 #### [facility] [address] [facility] [place] [address], [facility] ABS NEUTROPHILS 12.5 10*3/uL High 1.6-7.6 The [facility] Comment on above: Order Comment: No: D o not add to previous draw Performed By: #### 3 5200, 15202 #### [facility] [address] [place] [address], [facility] Basophils (Bld) [#/Vol] 0.0 10*3/uL Normal 0.0-0.2 The [facility] Comment on above: Order Comment: No: D o not add to previous draw Performed By: #### 3 5200, 48887 #### [facility] [address] [place] [address], [place] Basophils/100 WBC (Bld) 0.0 % Normal 0.0-1.0 The [facility] Comment on above: Order Comment: No: D o not add to previous draw Performed By: #### 3 0, 88737 #### [facility] [address] [place] [address], [facility] Eosinophils (Bld) [#/Vol] 0.0 10*3/uL Normal 0.0-0.5 The [facility] Comment on above: Order Comment: No: D o not add to previous draw Performed By: #### 3 5199, 47340 #### [facility] [address] [place] [address], [facility] Eosinophils/100 WBC (Bld) 0.0 % Normal 0.0-6.0 The [facility] Comment on above: Order Comment: No: D o not add to previous draw Performed By: #### 3 5199, 32820 #### [facility] [address] [place] [address], [facility] Erythrocyte distribution width (RBC) [Ratio] 14.6 % Normal 11.5-15.0 The [facility] Comment on above: Order Comment: No: D o not add to previous draw Performed By: #### 3 5199, 07242 #### [facility] [address] [place] [address], [facility] Hematocrit (Bld) [Volume fraction] 36.6 % Normal 36.0-45.0 [facility] Comment on above: Order Comment: No: D o not add to previous draw Performed By: #### 3 5199, 41328 #### [facility] [address] [place] [address], [place] Hemoglobin (Bld) [Mass/Vol] 11.4 g/dL Low 12.0-15.0 [facility] Comment on above: Order Comment: No: D o not add to previous draw Performed By: #### 3 5199, 50960 #### [facility] [address] [place] [address], [facility] IMMATURE GRANS 1.2 % High 0.0-1.0 [facility] Comment on above: Order Comment: No: D o not add to previous draw Performed By: #### 3 5199, 62894 #### [facility] [address] [facility] [place] [address], [facility] Lymphocytes (Bld) [#/Vol] 0.6 10*3/uL Low 1.2-4.0 [facility] Comment on above: Order Comment: No: D o not add to previous draw Performed By: #### 3 5199, 41308 #### [facility] [address] [facility] [place] [address], [facility] Lymphocytes/100 WBC (Bld) 4.2 % Low 20.0-45.0 [facility] Comment on above: Order Comment: No: D o not add to previous draw Performed By: #### 3 5199, 14010 #### [facility] [address] [facility] [place] [address], [facility] MCH (RBC) [Entitic mass] 28.2 pg Normal 27.0-33.0 [facility] Comment on above: Order Comment: No: D o not add to previous draw Performed By: #### 3 5199, 93258 #### [facility] [address] [facility] [place] [address], [facility] MCHC (RBC) [Mass/Vol] 31.1 g/dL Low 32.0-35.0 [facility] Comment on above: Order Comment: No: D o not add to previous draw Performed By: #### 3 5199, 38872 #### [facility] [address] [facility] [place] [address], [facility] MCV (RBC) [Entitic vol] 90.6 fL Normal 82.0-98.0 The [facility] Comment on above: Order Comment: No: D o not add to previous draw Performed By: #### 3 5199, 33276 #### [facility] [address] [place] [address], [facility] Monocytes (Bld) [#/Vol] 0.5 10*3/uL Normal 0.1-1.0 [facility] Comment on above: Order Comment: No: D o not add to previous draw Performed By: #### 3 5200, 23259 #### [facility] [address] [place] [address], [facility] MONOS 3.3 % Low 5.0-12.0 The [facility] Comment on above: Order Comment: No: D o not add to previous draw Performed By: #### 3 5199, 48468 #### [facility] [address] [place] [address], [facility] Neutrophils/100 WBC (Bld) 91.3 % High 40.0-72.0 [facility] Comment on above: Order Comment: No: D o not add to previous draw Performed By: #### 3 5199, 52263 #### [facility] [address] [facility] [place] [address], [facility] Nucleated RBC/100 WBC (Bld) [Ratio] 0 % Normal 0-0 [facility] Comment on above: Order Comment: No: D o not add to previous draw Performed By: #### 3 0, 50293 #### [facility] [address] [facility] [place] [address], [facility] PLAT CNT 224 10*3/uL Normal 150-400 The [facility] Comment on above: Order Comment: No: D o not add to previous draw Performed By: #### 3 5200, 37568 #### [facility] [address] [facility] [place] [address], [facility] RBC (Bld) [#/Vol] 4.04 10*6/uL Normal 3.80-5.00 [facility] Comment on above: Order Comment: No: D o not add to previous draw Performed By: #### 3 5200, 45088 #### [facility] [address] [place] [address], [facility] WBC (Bld) [#/Vol] 13.70 10*3/uL High 4.00-10.60 [facility] Comment on above: Order Comment: No: D o not add to previous draw Performed By: #### 3 5200, 22441 #### [facility] [address] [place] [address], [facility] COMP METABOLIC PANELon 11-01 Albumin [Mass/Vol] 3.7 g/dL Normal 3.5-5.7 The [facility] Comment on above: Order Comment: No: D o not add to previous draw Performed By: #### 0 0121, 10741, 32130 #### [facility] [address] [place] [address], [facility] ALKALINE PHOSPH 54 IU/L Normal 34-104 [facility] Comment on above: Order Comment: No: D o not add to previous draw Performed By: #### 0 0121, 37624, 79459 #### [facility] [address] [place] [address], [place] ALT [Catalytic activity/Vol] 12 U/L Normal 7-52 [facility] Comment on above: Order Comment: No: D o not add to previous draw Performed By: #### 0 0121, 98686, 82683 #### [facility] [address] [place] [address], [place] AST [Catalytic activity/Vol] 17 U/L Normal 13-39 [facility] Comment on above: Order Comment: No: D o not add to previous draw Performed By: #### 0 0121, 48325, 22969 #### [facility] [address] [place] [address], [place] Bilirubin [Mass/Vol] 0.3 mg/dL Normal 0.3-1.0 [facility] Comment on above: Order Comment: No: D o not add to previous draw Performed By: #### 0 0121, 98772, 05094 #### [facility] [address] [place] [address], [place] Calcium [Mass/Vol] 9.4 mg/dL Normal 8.6-10.3 [facility] Comment on above: Order Comment: No: D o not add to previous draw Performed By: #### 0 0121, 58304, 23771 #### [facility] [address] [place] [address], [place] Chloride [Moles/Vol] 100 mmol/L Normal 98-107 [facility] Comment on above: Order Comment: No: D o not add to previous draw Performed By: #### 0 0121, 94441, 93592 #### [facility] [address] [place] [address], [place] CO2 [Moles/Vol] 29 mmol/L Normal 21-31 [facility] Comment on above: Order Comment: No: D o not add to previous draw Performed By: #### 0 0121, 71864, 89563 #### [facility] [address] [place] [address], [place] Creatinine [Mass/Vol] 1.04 mg/dL Normal 0.60-1.20 [facility] Comment on above: Order Comment: No: D o not add to previous draw Performed By: #### 0 0121, 65541, 29151 #### [facility] [address] [place] [address], [place] eGFR- non- 54 ml/min/1.73sq m Abnormal >60 [facility] Comment on above: Order Comment: No: D o not add to previous draw Performed By: #### 0 0121, 54250, 57929 #### [facility] [address] [place] [address], [place] GFR/1.73 sq M.predicted among blacks MDRD (S/P/Bld) [Vol rate/Area] mL/min/{1.73_m2} Normal >60 [facility] Comment on above: Order Comment: No: D o not add to previous draw Performed By: #### 0 0121, 00870, [id number] #### [facility] [address] [place] [address], [place] Glucose [Mass/Vol] 239 mg/dL High 70-100 [facility] Comment on above: Order Comment: No: D o not add to previous draw Performed By: #### 0 0121, 92833, 89524 #### [facility] [address] [place] [address], [place] Potassium [Moles/Vol] 4.3 mmol/L Normal 3.5-5.1 [facility] Comment on above: Order Comment: No: D o not add to previous draw Performed By: #### 0 0121, 47751, 75755 #### [facility] [address] [place] [address], [place] Protein [Mass/Vol] 5.6 g/dL Low 6.0-8.3 [facility] Comment on above: Order Comment: No: D o not add to previous draw Performed By: #### 0 0121, 07865, 52797 #### [facility] [address] [place] [address], [place] Sodium [Moles/Vol] 139 mmol/L Normal 136-145 [facility] Comment on above: Order Comment: No: D o not add to previous draw Performed By: #### 0 0121, 88392, 98340 #### [facility] [address] [place] [address], [place] Urea nitrogen [Mass/Vol] 24 mg/dL Normal 7-25 [facility] Comment on above: Order Comment: No: D o not add to previous draw Performed By: #### 0 0121, 94201, 47116 #### [facility] [address] [place] [address], [facility] MAGNESIUM BLOODon 11-01-2021 Magnesium [Mass/Vol] 2.0 mg/dL Normal 1.9-2.7 The [facility] Comment on above: Order Comment: No: D o not add to previous draw Performed By: #### 0 0121, 41712, 01893 #### [facility] [address] [place] [address], [facility] PROF 14(COMP METB)on 022 Albumin [Mass/Vol] 3.1 g/dL Critically low 3.4-5.0 [facility] Comment on above: Performed By: #### C MP, BNP, HSTROPN ####[facility] [address] [place] [address]Dr. Nahed Yañez Albumin/Globulin [Mass ratio] 1.0 {ratio} Normal [facility] Comment on above: Performed By: #### C MP, BNP, HSTROPN ####[facility] [address] [place] [address]Dr. Nahed Yañez ALP [Catalytic activity/Vol] 56 U/L Normal 46-116 [facility] Comment on above: Performed By: #### C MP, BNP, HSTROPN ####[facility] Eqfcuzzfvr[address] [place] [address]Dr. Nahed Yañez ALT [Catalytic activity/Vol] 19 U/L Normal 14-59 [facility] Comment on above: Performed By: #### C MP, BNP, HSTROPN ####[facility] Frcjdu[address] [place] [address]Dr. Nahed Yañez Anion gap [Moles/Vol] 14.3 mmol/L Normal [facility] Comment on above: Performed By: #### C MP, BNP, HSTROPN ####[facility] Jagtnhcexw[address] [place] [address]Dr. Nahed Yañez AST [Catalytic activity/Vol] 18 U/L Normal 15-37 [facility] Comment on above: Performed By: #### C MP, BNP, HSTROPN ####[facility] Iqcksfdnfo[address] [place] [address]Dr. Nahed Yañez Bilirubin [Mass/Vol] 0.4 mg/dL Normal 0.2-1.0 The [facility] Comment on above: Performed By: #### C MP, BNP, HSTROPN ####[facility] [address]im[address] [place] [address]Dr. Nahed Yañez Calcium [Mass/Vol] 9.3 mg/dL Normal 8.5-10.1 [facility] Comment on above: Performed By: #### C MP, BNP, HSTROPN ####[facility] W[address] [place] [address]Dr. Nahed Yañez Chloride [Moles/Vol] 102 mmol/L Normal 98-107 The [facility] Comment on above: Performed By: #### C MP, BNP, HSTROPN ####[facility] Claf[address] [place], [place] [address]Dr. Nahed Yañez CO2 [Moles/Vol] 27.1 mmol/L Normal 21.0-32.0 [facility] Comment on above: Performed By: #### C MP, BNP, HSTROPN ####[facility] Jrzjoxjhso[address] [place], [place] [address]Dr. Nahed Yañez Creatinine [Mass/Vol] 1.25 mg/dL Critically high 0.55-1.02 [facility] Comment on above: Performed By: #### C MP, BNP, HSTROPN ####[facility] [address]rr[address] [place], [place] [address]Dr. Nahed Yañez EGFR-AF GERMAN 53 mL/min/1.73m2 Critically low >=60 The [facility] Comment on above: Performed By: #### C MP, BNP, HSTROPN ####[facility] Vswvajbxyd[address] [place], [place] [address]Dr. Nahed Yañez EGFR-NON AF GERMAN 44 mL/min/1.73m2 Critically low >=60 The [facility] Comment on above: Performed By: #### C MP, BNP, HSTROPN ####[facility] [address]ftch[address] [place] [address]Dr. Nahed Yañez Globulin (S) [Mass/Vol] 3.2 g/dL Normal [facility] Comment on above: Performed By: #### C MP, BNP, HSTROPN ####[facility] Y[address]mom[address] [place], [place] [address]Dr. Nahed Yañez Glucose [Mass/Vol] 248 mg/dL Critically high 74-106 [facility] Comment on above: Performed By: #### C MP, BNP, HSTROPN ####[facility] [address]kevod[address] [place], [place] [address]Dr. Nahed Yañez Potassium [Moles/Vol] 3.4 mmol/L Critically low 3.5-5.1 [facility] Comment on above: Performed By: #### C MP, BNP, HSTROPN ####[facility] Or[address] [place], [place] [address]Dr. Nahed Yañez Protein [Mass/Vol] 6.3 g/dL Critically low 6.4-8.2 [facility] Comment on above: Performed By: #### C MP, BNP, HSTROPN ####[facility] Xxx[address]pl[address]sp[address] [place], [place] [address]Dr. Nahed Yañez Sodium [Moles/Vol] 140 mmol/L Normal 136-145 [facility] Comment on above: Performed By: #### C MP, BNP, HSTROPN ####[facility] Ryrc[address]xx[address] [place], [place] [address]Dr. Nahed Yañez Urea nitrogen [Mass/Vol] 18.0 mg/dL Normal 7.0-18.0 [facility] Comment on above: Performed By: #### C MP, BNP, HSTROPN ####[facility] [address] [place], [place] [address]Dr. Nahed Yañez Urea nitrogen/Creatinine [Mass ratio] 14.4 mg/mg Normal [facility] Comment on above: Performed By: #### C MP, BNP, HSTROPN ####[facility] [address] [place], [place] [address]Dr. Nahed Yañez PROTHROMBIN TIMEon INR Coag (PPP) [Relative time] 1.06 {INR} Normal 0.91-1.16 The [facility] Comment on above: Order Comment: No: D o not add to previous draw Result Comment: ACCC P RECOMMENDED INR FOR WARFARIN THERAPY --------- ------- CONDITION INR PROPHYLAXIS OF VENOUS THROMBOSIS 2-3 (HIGH-RISK SURGERY) TREATMENT OF VENOUS THROMBOSIS 2-3 TREATMENT OF PULMONARY EMBOLISM 2-3 PREVENTION OF SYSTEMIC EMBOLISM: 2-3 ACUTE MYOCARDIAL INFARCTION TISSUE HEART VALVES VALVULAR HEART DISEASE ATRIAL FIBRILLATION RECURRENT SYSTEMIC EMBOLISM MECHANICAL HEART VALVE 2.5-3.5 FROM: ORAL ANTICOAGULANTS. MECHANISM OF ACTION, CLINICAL EFFECTIVENESS, AND OPTIMAL THERAPEUTIC RANGE. CHEST 1995;108:231S-246S. Performed By: #### 5 6101 #### [facility] [address] [facility]. [address] PT Coag (PPP) [Time] 13.8 s Normal 12.3-14.8 [facility] Comment on above: Order Comment: No: D o not add to previous draw Result Comment: ALL RESULTS MUST BE INTERPRETED WITH RESPECT TO BLOOD DRAWING ARTIFACT OR DILUTION ERROR OF ANTICOAGULANT AT THE TIME OF SAMPLING. Performed By: #### 5 6101 #### [facility] [address] [facility] [place] [address], [facility] TROPONIN, HIGH SENSITIVITYon 11-01-2021 HSTROP 1684.4 pg/mL Critically high 4.0-51.3 [facility] Comment on above: Result Comment: CUT- OFF POINTS HAVE BEEN ESTABLISHED BASED ON THE FOURTH UNIVERSAL DEFINITIONS OF MYOCARDIALINFARCTION. THE UPPER REFERENCE LIMIT (URL) OF TROPONIN, DEFINED THE 99TH PERCENTILE OFcTnI DISTRIBUTION IN A REFERENCE POPULATION, HAS BEEN CONFIRMED THE DECISION THRESHOLDFOR CT DIAGNOSIS. Performed By: #### C MP, BNP, HSTROPN ####[facility] [address] [place] [id number]. Nahed Yañez TROPONIN-Ion 11-01-2021 Troponin I.cardiac [Mass/Vol] 0.22 ng/mL Critically high 0.00-0.04 [facility] Comment on above: Order Comment: No: D o not add to previous draw Result Comment: M-TR OPONIN INITIAL CRITICAL HIGH; RESPUN AND RETESTED M-CRITICAL RESULT(S) REVIEWED, CALLED TO AND READ BACK BY Kathy Suárez RN at 2205. REFERENCE RANGES: 0.00 - 0.04 ng/ml NORMAL 0.05 - 0.50 ng/ml INDETERMINATE > 0.50 ng/ml CONSISTENT WITH AN M.I. Performed By: #### 0 0121, 11380, 00196 #### [facility] [address] [facility]. [address] UFH HEPARIN ASSAYon 11-02-19 22 UNFRACTIONATED HEPARIN 0.55 IU/mL Normal 0.30-0.70 Th e [facility] Comment on above: Result Comment: [place] roxaban and Apixaban will interfere with the anti Xa assay used to monitor UFH and LMWH. Performed By: #### 3 5200, 79015 #### [facility] [address] [facility]. [address] BLOOD GASES BTYon 10-31-2021 02 MODE ROOM AIR Normal The [facility] Comment on above: Performed By: #### A BG ####[facility] [address] [place] [id number]. Nahed Yañez ALLENS TEST Positive Normal The [facility] Comment on above: Performed By: #### A BG ####[facility] [address] [place] [id number] Yañez Base excess Calc (Bld) [Moles/Vol] 3.5 mmol/L Critically high -2.0-2.0 [facility] Comment on above: Performed By: #### A BG ####[facility] [address]xuz[address] [place] [address]Dr. Nahed Yañez BIPAP PRESSURE Normal The [facility] Comment on above: Performed By: #### A BG ####[facility] Xgfd[address]lkog[address]75 [place] [address]Dr. Nahed Yañez CO2 [Moles/Vol] 56.3 mmol/L Critically high 23.0-28.0 The [facility] Comment on above: Performed By: #### A BG ####[facility] Axfds[address]fnn[address] [place], [place] [address]Dr. Nahed Yañez CPAP Normal The [facility] Comment on above: Performed By: #### A BG ####[facility] [address]je[address] [place], [place] [address]Dr. Nahed Yañez FIO2 Normal The [facility] Comment on above: Performed By: #### A BG ####[facility] R[address]uc[address] [place], [place] [address]Dr. Nahed Yañez HCO3 (Bld) [Moles/Vol] 26.8 mmol/L Critically high 22.0-26 .0 [facility] Comment on above: Performed By: #### A BG ####[facility] [address]ayjjigpos[address] [place], [place] [address]Dr. Nahed Yañez LPM Normal [facility] Comment on above: Performed By: #### A BG ####[facility] G[address] [place], [place] [address]Dr. Nahed Yañez MINUTE VOLUME Normal The [facility] Comment on above: Performed By: #### A BG ####[facility] [address]gsphkrbe[address] [place], [place] [address]Dr. Nahed Yañez Oxygen (Bld) [Partial pressure] 51.8 mm[Hg] Critically low 80.0-100.0 The [facility] Comment on above: Performed By: #### A BG ####[facility] Wbzxpjpwzd[address] [place], [place] [address]Dr. Nahed Yañez Oxygen saturation in Blood 86.3 % Critically low 95.0-100.0 [facility] Comment on above: Performed By: #### A BG ####[facility] Xd[address]swgz[address] [place] [address]Dr. Nahed Yañez PCO2 43.8 mmHg Normal 35.0-45.0 [facility] Comment on above: Performed By: #### A BG ####[facility] Glczxunbsd[address] [place] [address]Dr. Nahed Yañez PEEP [facility] Comment on above: Performed By: #### A BG ####[facility] Uwyezhnfqo[address] [place] [address]Dr. Nahed Yañez pH (Bld) 7.415 [pH] Normal 7.350-7.450 [facility] Comment on above: Performed By: #### A BG ####[facility] [address]gtteunr[address] [place], [place] [address]Dr. Nahed Yañez PIP [facility] Comment on above: Performed By: #### A BG ####[facility] [address]kcszlod[address] [place], [place] [address]Dr. Nahed Yañez PS [facility] Comment on above: Performed By: #### A BG ####[facility] [address]ewmbjfsv[address] [place], [place] [address]Dr. Nahed Yañez PUNCTURE SITE [place] Divide The [facility] Comment on above: Performed By: #### A BG ####[facility] Yeryancder[address] [place], [place] [address]Dr. Nahed Yañez RATE [facility] Comment on above: Performed By: #### A BG ####[facility] [address] [place], [place] [address]Dr. Nahed Yañez VENT MODE [facility] Comment on above: Performed By: #### A BG ####[facility] Glansiiidq[address] [place], [place] [address]Dr. Nahed Yañez [place] [facility] Comment on above: Performed By: #### A BG ####[facility] Clquhoyqrj[address] [place], [place] [address]Dr. Nahed Yañez BNPon 10-31-2021 Natriuretic peptide B (Bld) [Mass/Vol] 01233.0 pg/mL Critically high <=900.0 The [facility] Comment on above: Performed By: #### T 4, TSH, BNP, CMADM ####[facility] V[address]mpx[address] [place] [address]Dr. Nahed Yañez CARDIAC FRANCISCO 3-6on 2 CK [Catalytic activity/Vol] 91 U/L Normal 26-192 The [facility] Comment on above: Performed By: #### C MREP ####[facility] Wh[address]so[address] [place] [address]Dr. Nahed Yañez CK.MB [Mass/Vol] 7.32 ng/mL Critically high <=3.60 The [facility] Comment on above: Result Comment: test repeated critical value verified Performed By: #### C MREP ####[facility] Gcwxvyilnm[address] [place], [place] [address]Dr. Nahed Yañez HSTROP 2823.1 pg/mL Critically high 4.0-51.3 The [facility] Comment on above: Result Comment: CUT- OFF POINTS HAVE BEEN ESTABLISHED BASED ON THE FOURTH UNIVERSAL DEFINITIONS OF MYOCARDIALINFARCTION. THE UPPER REFERENCE LIMIT (URL) OF TROPONIN, DEFINED THE 99TH PERCENTILE OFcTnI DISTRIBUTION IN A REFERENCE POPULATION, HAS BEEN CONFIRMED THE DECISION THRESHOLDFOR CT DIAGNOSIS.test repeated critical value verified Performed By: #### C MREP ####[facility] [address]qpul[address] [place], [place] [address]Dr. Nahed Yañez CARDIAC FRANCISCO ADMITon 022 CK [Catalytic activity/Vol] 85 U/L Normal 26-192 The [facility] Comment on above: Performed By: #### T 4, TSH, BNP, CMADM ####[facility] W[address]pc[address]wou[address] [place] [id number]. Nahed Yañez CK.MB [Mass/Vol] 6.44 ng/mL Critically high <=3.60 The [facility] Comment on above: Performed By: #### T 4, TSH, BNP, CMADM ####[facility] I[address]kpxwyu[address] [place], [place] [address]Dr. Nahed Yañez HSTROP 3194.8 pg/mL Critically high 4.0-51.3 [facility] Comment on above: Result Comment: CUT- OFF POINTS HAVE BEEN ESTABLISHED BASED ON THE FOURTH UNIVERSAL DEFINITIONS OF MYOCARDIALINFARCTION. THE UPPER REFERENCE LIMIT (URL) OF TROPONIN, DEFINED THE 99TH PERCENTILE OFcTnI DISTRIBUTION IN A REFERENCE POPULATION, HAS BEEN CONFIRMED THE DECISION THRESHOLDFOR CT DIAGNOSIS. Performed By: #### T 4, TSH, BNP, CMADM ####[facility] [address]ssms[address] [place] [address]Dr. Nahed Yañez ANDRE 57 ng/mL Normal 9-82 [facility] Comment on above: Performed By: #### T 4, TSH, BNP, CMADM ####[facility] Zeyfysjekp[address] [place] [address]Dr. Nahed Yañez CBC AUTO DIFFon 10-31-2021 BASO # 0.0 103/ul Normal 0.0-0.1 [facility] Comment on above: Performed By: #### C BC ####[facility] Imkeifikae[address] [place], [place] [address]Dr. Nahed Yañez Basophils/100 WBC (Bld) 0.2 % Normal 0.2-2.0 [facility] Comment on above: Performed By: #### C BC ####[facility] [address]ogvmz[address] [place], [place] [address]Dr. Nahed Yañez EO # 0.0 103/ul Normal 0.0-0.7 [facility] Comment on above: Performed By: #### C BC ####[facility] [address]xcadqffxy[address] [place], [place] [address]Dr. Nahed Yañez Eosinophils/100 WBC (Bld) 0.1 % Critically low 0.9-7.0 The [facility] Comment on above: Performed By: #### C BC ####[facility] Zfpc[address]fsqs[address] [place], [place] [address]Dr. Nahed Yañez Erythrocyte distribution width (RBC) [Ratio] 14.8 % Normal 11.0-15.0 [facility] Comment on above: Performed By: #### C BC ####[facility] [address]imjujcr[address] [place], [place] [address]Dr. Nahed Yañez Hematocrit (Bld) [Volume fraction] 44.4 % Normal 36.0-48.0 The [facility] Comment on above: Performed By: #### C BC ####[facility] [address]qukt[address] [place] [address]Dr. Nahed Yañez Hemoglobin (Bld) [Mass/Vol] 14.1 g/dL Normal 12.0-16.0 The [facility] Comment on above: Performed By: #### C BC ####[facility] Qojharbcwg[address] [place] [address]Dr. Nahed Yañez IG # 0.04 10e3/ul Critically high 0.00-0.03 [facility] Comment on above: Performed By: #### C BC ####[facility] [address]zfobafk[address] [place], [place] [address]Dr. Nahed Yañez IG % 0.3 % Normal 0.0-0.5 [facility] Comment on above: Performed By: #### C BC ####[facility] Lmymbtfz[address] [place], [place] [address]Dr. Nahed Yañez LYMPH # 1.4 103/ul Normal 1.2-3.8 The [facility] Comment on above: Performed By: #### C BC ####[facility] Wpzpcncxip[address] [place], [place] [address]DrShaun Yañez Lymphocytes/100 WBC (Bld) 10.4 % Critically low 20.5-60.0 The [facility] Comment on above: Performed By: #### C BC ####[facility] [address]zxhir[address] [place], [place] [address]Dr. Nahed Yañez MANUAL DIFF REQ NO Normal The [facility] Comment on above: Performed By: #### C BC ####[facility] [address]qdzjpfual[address] [place], [place] [address]Dr. Nahed Yañez MCH (RBC) [Entitic mass] 28.1 pg Normal 26.7-34.0 The [facility] Comment on above: Performed By: #### C BC ####[facility] Vumxststcb[address] [place], [place] [address]Dr. Nahed Yañez MCHC (RBC) [Mass/Vol] 31.8 g/dL Normal 29.9-35.2 The [facility] Comment on above: Performed By: #### C BC ####[facility] F[address]rpwdmbe[address] [place], [place] [address]Dr. Nahed Yañez MCV (RBC) [Entitic vol] 88.4 fL Normal 81.0-99.0 The [facility] Comment on above: Performed By: #### C BC ####[facility] [address]rkw[address]ai[address] [place], [place] [address]Dr. Nahed Yañez MONO # 0.8 103/ul Normal 0.3-0.8 The [facility] Comment on above: Performed By: #### C BC ####[facility] Dtdbxhxgmh[address] [place], [place] [address]Dr. Nahed Yañez Monocytes/100 WBC (Bld) 6.0 % Normal 1.7-12.0 The [facility] Comment on above: Performed By: #### C BC ####[facility] Usvlxcrscd[address] [place], [place] [address]Dr. Nahed Yañez NEUT # 10.9 103/ul Critically high 1.4-6.5 The [facility] Comment on above: Performed By: #### C BC ####[facility] S[address]ycfykl[address] [place], [place] [address]Dr. Nahed Yañez Neutrophils/100 WBC (Bld) 83.0 % Critically high 43.0-75.0 The [facility] Comment on above: Performed By: #### C BC ####[facility] Vxwksmakhl[address] [place], [place] [address]Dr. Nahed Yañez Platelet mean volume (Bld) [Entitic vol] 10.8 fL Normal 9.5-13.5 The [facility] Comment on above: Performed By: #### C BC ####[facility] Csxqbkqwbt[address] [place], [place] [address]Dr. Nahed Yañez PLT 402 103/ul Normal 150-450 The [facility] Comment on above: Performed By: #### C BC ####[facility] Hrqvbxginf[address] [place], [place] [address]Dr. Nahed Yañez RBC 5.02 106/ul Normal 4.20-5.40 The [facility] Comment on above: Performed By: #### C BC ####[facility] [address] [place], [place] [address]Cy. Nahed Yañez WBC 13.1 103/ul Critically high 4.0-11.0 [facility] Comment on above: Performed By: #### C BC ####[facility] [address]jpq[address] [place], [place] [address]Iz. Nahed Yañez CTA CHEST WO W CONon 022 CTA CHEST WO W CON Normal [facility] CULTURE BLOODon 10-31-2021 Microscopic examination of blood, culture Culture Observations: NO GROWTH AT 5 DAYS. Normal The [facility] Comment on above: Performed By: #### B LDCX2 ####[facility] Af[address]we[address] [place], [place] [address]Au. Nahed Yañez Microscopic examination of blood, culture Culture Observations: NO GROWTH AT 5 DAYS. Normal The [facility] Comment on above: Performed By: #### B LDCX1 ####[facility] [address]er[address] [place], [place] [address]Tk. Nahed Yañez [facility]13 SARS-CoV-2 (COVID-19) RNA MIRNA+probe Ql (Unsp spec) Not detected Normal NOT DETECTED The [facility] Comment on above: Result Comment: When diagnostic testing is negative, the possibility of a false negative should be considered inthe context of a patient's recent exposures and the presence of clinical signs and symptomsconsistent with SARS-CoV-2.This test is not yet approved or cleared by the [place] FDA. When there are no FDA-approved or cleared tests available, and other criteria are met, FDA can make tests available under an emergency access mechanism called an Emergency Use Authorization (EUA). The EUA for this test is supported by the Certified Adapted Physical Educator of Health and Human Service's declaration that circumstances exist to justify the emergency use of in vitro diagnostics for the detection and/or diagnosis of the virus that causes COVID-19. This EUA will remain in effect for the duration of the COVID-19 declaration justifying emergency of IVDs, unless it is terminated or revoked by the FDA (after which the test may no longer be used). Performed By: #### C VDTB ####[facility] [address] [place] [address]Dr. Nahed Yañez ECHO LIMITED STUDYon 022 ECHO LIMITED STUDY Normal [facility] ER URINE PROFILEon 2 Bilirubin Ql (U) SMALL Abnormal NEGATIVE The [facility] Comment on above: Performed By: #### NUNU DOVERO ####[facility] [address]zldpth[address] [place], [place] [address]Dr. Nahed Yañez Clarity (U) CLEAR Normal CLEAR The [facility] Comment on above: Performed By: #### YARELIS DOVE ####[facility] Usjqplndgf92[address] [place], [place] [address]Dr. Nahed Yañez Color (U) YELLOW Normal YELLOW The [facility] Comment on above: Performed By: #### YARELIS DOVE ####[facility] Przfagexrw549[address] [place], [place] [address]Dr. Nahed Yañez ERUAHD A micrscopic examination will be performed if indicated. Normal The [facility] Comment on above: Performed By: #### YARELIS DOVE ####[facility] Bwratqzzmn[address] [place], [place] [address]Dr. Nahed Yañez Glucose Ql (U) Negative Normal NEGATIVE The [facility] Comment on above: Performed By: #### NUNU DOVERO ####[facility] Ljdtbmrlnb45[address] [place], [place] [address]Dr. Nahed Yañez Hemoglobin Ql (U) TRACE-INTACT Abnormal NEGATIVE The [facility] Comment on above: Performed By: #### NUNU DOVERO ####[facility] Oixxieizlr024[address] [place], [place] [address]Dr. Nahed Yañez Ketones Ql (U) 15 mg/dl Abnormal NEGATIVE The [facility] Comment on above: Performed By: #### YARELIS DOVE ####[facility] Mywbdjmblv098[address] [place], [place] [address]Dr. Nahed Yañez LEUKOCYTES TRACE Abnormal NEGATIVE The [facility] Comment on above: Performed By: #### YARELIS DOVE ####[facility] Xfdt[address]thp[address] [place] [address]Dr. Nahed Yañez Nitrite Ql (U) Negative Normal NEGATIVE [facility] Comment on above: Performed By: #### NUNU DOVERO ####[facility] Gxgvetehdz8450 [place] [address]Dr. Nahed Yañez pH (U) 6.5 [pH] Normal 5-9 [facility] Comment on above: Performed By: #### YARELIS DOVE ####[facility] Ndiaokfhiu6864 [place] [address]Dr. Nahed Yañez Protein (U) [Mass/Vol] 30 mg/dL Abnormal NEGAT JOSEPHINE/ TRACE The [facility] Comment on above: Performed By: #### YARELIS DOVE ####[facility] Qzvdwsecsh1826 [place] [address]Dr. Nahed aYñez SPEC GRAVITY 1.025 Normal 1.005-<=1.02 5 [facility] Comment on above: Performed By: #### YARELIS DOVE ####[facility] Nrayvzbeal448[address] [place], [place] [address]Dr. Nahed Yañez UR MICRO IND INDICATED Normal The [facility] Comment on above: Performed By: #### YARELIS DOVE ####[facility] Dutaqamlru[address]32 [place] [address]Dr. Nahed Yañez Urobilinogen Qn (U) 0.2 {Alem'U}/dL Normal 0.2 - 1. 0 The [facility] Comment on above: Performed By: #### YARELIS DOVE ####[facility] Oephycjjxg513[address] [place], [place] [address]Dr. Nahed Yañez INFLUENZA A AND B AGon 10-31 INFLUANEGH SEE BELOW Normal The [facility] Comment on above: Result Comment: Nega tive for Flu A protein angiten. Infection due to Flu A cannot be ruled out. Flu A angiten in the sample may be below the detection limit of the test. Performed By: #### I NFLUAB ####[facility] Cgagstyzgp6675[address] [place], [place] [address]Dr. Nahed Yañez INFLUBNEGH SEE BELOW Normal [facility] Comment on above: Result Comment: Nega tive for Flu B protein antigen. Infection due to Flu B cannot be ruled out. Flu B antigen in the sample may be below the detection limit of the test. Performed By: #### I NFLUAB ####[facility] Qeozflzave55119[address] [place], [place] [address]Dr. Nahed Yañez INFLUENZA A AG Negative Normal NEGATIVE SEE COMMENT [facility] Comment on above: Performed By: #### I NFLUAB ####[facility] Kquuopzrpq7638[address] [place], [place] [address]Dr. Nahed Yañez INFLUENZA B AG Negative Normal NEGATIVE SEE COMMENT [facility] Comment on above: Performed By: #### I NFLUAB ####[facility] Nsnpxupale030[address] [place], [place] [address]Dr. Nahed Yañez INTERNAL CONTROLS Within Normal Limits Normal Wi thin Normal Limits [facility] Comment on above: Performed By: #### I NFLUAB ####[facility] Ozkylqbfbm067398 [address] [place], [place] [address]Dr. Nahed Yañez LACTATE/LACTIC ACIDon 2021 Lactate [Moles/Vol] 1.3 mmol/L Normal 0.4-1.9 [facility] Comment on above: Performed By: #### L ACT ####[facility] Mzevnanery296[address] [place], [place] [address]Dr. Nahed Yañez PROF 14(COMP METB)on 022 Albumin [Mass/Vol] 4.3 g/dL Normal 3.4-5.0 [facility] Comment on above: Performed By: #### C MP ####[facility] Clyraqkgax4877[address] [place], [place] [address]Dr. Nahed Yañez Albumin/Globulin [Mass ratio] 1.2 {ratio} Normal [facility] Comment on above: Performed By: #### C MP ####[facility] Howsbgrswc39[address] [place] [address]Dr. Nahed Yañez ALP [Catalytic activity/Vol] 77 U/L Normal 46-116 The [facility] Comment on above: Performed By: #### C MP ####[facility] Eiaizawjfr8457 [place] [address]Dr. Nahed Yañez ALT [Catalytic activity/Vol] 25 U/L Normal 14-59 The [facility] Comment on above: Performed By: #### C MP ####[facility] Zwyjgoeqaf9814[address] [place], [place] [address]Dr. Nahed Yañez Anion gap [Moles/Vol] 15.6 mmol/L Normal Th e [facility] Comment on above: Performed By: #### C MP ####[facility] Yqxvsxswxw9[address] [place], [place] [address]Dr. Nahed Yañez AST [Catalytic activity/Vol] 26 U/L Normal 15-37 The [facility] Comment on above: Performed By: #### C MP ####[facility] Zhwnmhsxjg7625[address] [place], [place] [address]Dr. Nahed Yañez Bilirubin [Mass/Vol] 0.6 mg/dL Normal 0.2-1.0 The [facility] Comment on above: Performed By: #### C MP ####[facility] Fzyjmzixje8867[address] [place], [place] [address]Dr. Nahed Yañez Calcium [Mass/Vol] 10.0 mg/dL Normal 8.5-10.1 [facility] Comment on above: Performed By: #### C MP ####[facility] Rwtiolndpd846[address] [place], [place] [address]Dr. Nahed Yañez Chloride [Moles/Vol] 101 mmol/L Normal 98-107 The [facility] Comment on above: Performed By: #### C MP ####[facility] Ihwhweirhb522[address] [place], [place] [address]Dr. Nahed Yañez CO2 [Moles/Vol] 29.0 mmol/L Normal 21.0-32.0 The [facility] Comment on above: Performed By: #### C MP ####[facility] Bxzowftwkz209[address] [place], [place] [address]Dr. Rosemarieashley Yañez Creatinine [Mass/Vol] 0.89 mg/dL Normal 0.55-1.02 [facility] Comment on above: Performed By: #### C MP ####[facility] Kqyrfdodze3698 [place] [address]Dr. Nahed Otilio EGFR-AF GERMAN >60 Normal >=60 [facility] Comment on above: Performed By: #### C MP ####[facility] Ilhoggggom8675 [place] [address]Dr. Rosemarieashley Otilio EGFR-NON AF GERMAN >60 Normal >=60 [facility] Comment on above: Performed By: #### C MP ####[facility] Wveqytukmf3034 [place] [address]Dr. Nahed Yañez Globulin (S) [Mass/Vol] 3.7 g/dL Normal [facility] Comment on above: Performed By: #### C MP ####[facility] Bqjbnsoszd0802 [place] [address]Dr. Nahed Yañez Glucose [Mass/Vol] 182 mg/dL Critically high 74-106 [facility] Comment on above: Performed By: #### C MP ####[facility] Tggndjarcu0279 [place] [address]Dr. Nahed Yañez Potassium [Moles/Vol] 3.6 mmol/L Normal 3.5-5.1 [facility] Comment on above: Performed By: #### C MP ####[facility] Madcvttfcs5116 [place] [address]Dr. Nahed Yañez Protein [Mass/Vol] 8.0 g/dL Normal 6.4-8.2 [facility] Comment on above: Performed By: #### C MP ####[facility] Lcjjzquqtk8085 [place] [address]Dr. Nahed Yañez Sodium [Moles/Vol] 142 mmol/L Normal 136-145 [facility] Comment on above: Performed By: #### C MP ####[facility] Lvplmjdjet4836 [place] [address]Dr. Nahed Yañez Urea nitrogen [Mass/Vol] 8.0 mg/dL Normal 7.0-18.0 [facility] Comment on above: Performed By: #### C MP ####[facility] Peyzyjryxd217[address] [place], [place] [address]Dr. Nahed Yañez Urea nitrogen/Creatinine [Mass ratio] 9.0 mg/mg Normal The [facility] Comment on above: Performed By: #### C MP ####[facility] Ugekfzxtaz97[address] [place], [place] [address]Dr. Nahed Yañez T4on 10-31-2021 T4 [Mass/Vol] 8.10 ug/dL Normal 4.80-13.90 The [facility] Comment on above: Performed By: #### T 4, TSH, BNP, CMADM ####[facility] Waifxhjyzx967[address] [place], [place] [address]Dr. Nahed Yañez TSHon 10-31-2021 TSH 1.088 uIU/mL Normal 0.358-3.740 The [facility] Comment on above: Performed By: #### T 4, TSH, BNP, CMADM ####[facility] Cqitecfpbm125[address] [place], [place] [address]Dr. Nahed Yañez URINE MICROSCOPIC ONLYon BACTERIA TRACE Abnormal NONE SEEN The [facility] Comment on above: Performed By: #### YARELIS DOVE ####[facility] Asjsudpuau2716[address] [place], [place] [address]Dr. Nahed Yañez Bacteria identified Cx Nom (U) NOT INDICATED Normal The [facility] Comment on above: Performed By: #### YARELIS DOVE ####[facility] Suizlmgmjq439[address] [place], [place] [address]Dr. Nahed Yañez CAST NONE SEEN Normal NONE SEEN The [facility] Comment on above: Performed By: #### NUNU DOVERO ####[facility] Qeluwzvepu158[address] [place], [place] [address]Dr. Nahed Yañez Crystals LM Nom (Urine sed) NONE SEEN Normal NONE SEEN The [facility] Comment on above: Performed By: #### NUNU DOVERO ####[facility] Otwysvqatm77[address] [place] [address]Dr. Nahed Yañez Epithelial cells LM Ql (Urine sed) MODERATE Abnormal NONE SEEN /RARE The [facility] Comment on above: Performed By: #### YARELIS DOVE ####[facility] Jwlshykkfs5903 [place] [address]Dr. Nahed Yañez MUCOUS SMALL Abnormal NONE SEEN The [facility] Comment on above: Performed By: #### YARELIS DOVE ####[facility] Umbvecwxnm633[address] [place], [place] [address]Dr. Nahed Yañez RBC 2-5 Abnormal 0-2 The [facility] Comment on above: Performed By: #### YARELIS DOVE ####[facility] Fzfwtbbfdf824[address] [place], [place] [address]Dr. Nahed Yañez WBC 2-5 Abnormal NONE SEEN The [facility] Comment on above: Performed By: #### YARELIS DOVE ####[facility] Cvxulakjjv8435[address] [place], [place] [address]Dr. Nahed Yañez XR CHEST 2 Von 10-31-2021 XR CHEST 2 V Normal [facility] CULTURE URINEon 10-30-2021 CULTURE URINE Culture Observations : MODERATE GROWTH OF MIXED GENITAL MIGUEL. NO POTENTIAL PATHOGENS SEEN. Normal The [facility] Comment on above: Performed By: #### U RCX ####[facility] Ajjkgeleix200698 [address] [place], [place] [address]Dr. Nahed Yañez US JESSEE DOP LEG BILon 022 US JESSEE DOP LEG MOHAN Normal [facility] CARDIAC FRANCISCO ADMITon 022 CK [Catalytic activity/Vol] 16 U/L Critically low 26-192 The [facility] Comment on above: Performed By: #### ERICK Whyte MP ####[facility] Wfyethpady335[address] [place], [place] [address]Dr. Nahed Yañez CK.MB [Mass/Vol] 0.56 ng/mL Normal <=3.60 The [facility] Comment on above: Performed By: #### ERICK Whyte MP ####[facility] Tuazpbgfcw687[address] [place], [place] [address]Dr. Nahed Yañez HSTROP 44.3 pg/mL Normal 4.0-51.3 [facility] Comment on above: Result Comment: CUT- OFF POINTS HAVE BEEN ESTABLISHED BASED ON THE FOURTH UNIVERSAL DEFINITIONS OF MYOCARDIALINFARCTION. THE UPPER REFERENCE LIMIT (URL) OF TROPONIN, DEFINED THE 99TH PERCENTILE OFcTnI DISTRIBUTION IN A REFERENCE POPULATION, HAS BEEN CONFIRMED THE DECISION THRESHOLDFOR CT DIAGNOSIS. Performed By: #### C RENZO CMADM ####[facility] Jmdzobktrr8418 [place] [address]DrShaun Yañez ANDRE 42 ng/mL Normal 9-82 [facility] Comment on above: Performed By: #### C GRISELDA MULLERDM ####[facility] Yvhehvmxaw25[address] [place], [place] [address]DrShaun Yañez CBC AUTO DIFFon 09-07-2021 BASO # 0.0 103/ul Normal 0.0-0.1 [facility] Comment on above: Performed By: #### C BC ####[facility] Gjcooaocrt324[address] [place], [place] [address]DrShaun Yañez Basophils/100 WBC (Bld) 0.4 % Normal 0.2-2.0 [facility] Comment on above: Performed By: #### C BC ####[facility] Zukpltjzhx301[address] [place], [place] [address]DrShaun Yañez EO # 0.2 103/ul Normal 0.0-0.7 [facility] Comment on above: Performed By: #### C BC ####[facility] Iutjzuhuno235[address] [place], [place] [address]DrShaun Yañez Eosinophils/100 WBC (Bld) 2.4 % Normal 0.9-7.0 [facility] Comment on above: Performed By: #### C BC ####[facility] Czmfratfcl[address] [place], [place] [address]DrShaun Yañez Erythrocyte distribution width (RBC) [Ratio] 15.1 % Critically high 11.0-15.0 [facility] Comment on above: Performed By: #### C BC ####[facility] Yilglaqekr934[address] [place], [place] [address]DrShaun Yañez Hematocrit (Bld) [Volume fraction] 42.6 % Normal 36.0-48.0 [facility] Comment on above: Performed By: #### C BC ####[facility] Lszjdvudmv1445 [place] [address]Dr. Nahed Otilio Hemoglobin (Bld) [Mass/Vol] 13.4 g/dL Normal 12.0-16.0 The [facility] Comment on above: Performed By: #### C BC ####[facility] Woxfydasrk270[address] [place], [place] [address]Dr. Nahed Yañez IG # 0.33 10e3/ul Critically high 0.00-0.03 [facility] Comment on above: Performed By: #### C BC ####[facility] Jxsjmpuumk9944[address] [place], [place] [address]Dr. Nahed Yañez IG % 3.9 % Critically high 0.0-0.5 The [facility] Comment on above: Performed By: #### C BC ####[facility] Saxoxvrrnr485[address] [place], [place] [address]Dr. Nahed Yañez LYMPH # 2.6 103/ul Normal 1.2-3.8 The [facility] Comment on above: Performed By: #### C BC ####[facility] Udvdmumzqf8[address] [place], [place] [address]DrShaun Yañez Lymphocytes/100 WBC (Bld) 30.3 % Normal 20.5-60.0 The [facility] Comment on above: Performed By: #### C BC ####[facility] Rabztecwyz135[address] [place], [place] [address]DrShaun Yañez MANUAL DIFF REQ NO Normal The [facility] Comment on above: Performed By: #### C BC ####[facility] Cyqrqbwwxj764[address] [place], [place] [address]Dr. Nahed Yañez MCH (RBC) [Entitic mass] 28.6 pg Normal 26.7-34.0 [facility] Comment on above: Performed By: #### C BC ####[facility] Wncxmcgopf696[address] [place], [place] [address]Dr. Nahed Yañez MCHC (RBC) [Mass/Vol] 31.5 g/dL Normal 29.9-35.2 [facility] Comment on above: Performed By: #### C BC ####[facility] Xtlanbssrw[address]109 [place] [address]Dr. Nahed Yañez MCV (RBC) [Entitic vol] 90.8 fL Normal 81.0-99.0 [facility] Comment on above: Performed By: #### C BC ####[facility] Zztcbbgbfm189[address] [place], [place] [address]Dr. Nahed Yañez MONO # 0.7 103/ul Normal 0.3-0.8 The [facility] Comment on above: Performed By: #### C BC ####[facility] Tjpgsxnuge443[address] [place], [place] [address]Dr. Nahed Yañez Monocytes/100 WBC (Bld) 8.0 % Normal 1.7-12.0 [facility] Comment on above: Performed By: #### C BC ####[facility] Ftecvzdgdf454[address] [place], [place] [address]Dr. Nahed Yañez NEUT # 4.7 103/ul Normal 1.4-6.5 The [facility] Comment on above: Performed By: #### C BC ####[facility] Njfxcuzull2724[address] [place], [place] [address]Dr. Nahed Yañez Neutrophils/100 WBC (Bld) 55.0 % Normal 43.0-75.0 The [facility] Comment on above: Performed By: #### C BC ####[facility] Jabwsqwvbf76[address] [place], [place] [address]Dr. Nahed Yañez Platelet mean volume (Bld) [Entitic vol] 8.9 fL Critically low 9.5-13.5 The [facility] Comment on above: Performed By: #### C BC ####[facility] Jclzexznwv247[address] [place], [place] [address]Dr. Nahed Yañez PLT 270 103/ul Normal 150-450 [facility] Comment on above: Performed By: #### C BC ####[facility] Gprrxdldhr635[address] [place], [place] [address]Dr. Nahed Yañez RBC 4.69 106/ul Normal 4.20-5.40 [facility] Comment on above: Performed By: #### C BC ####[facility] Pgkbnrltgs4200 [place] [address]Dr. Nahed Yañez WBC 8.5 103/ul Normal 4.0-11.0 [facility] Comment on above: Performed By: #### C BC ####[facility] Rotzryvyza028[address] [place] [address]Dr. Nahed Yañez PROF 14(COMP METB)on 022 Albumin [Mass/Vol] 2.7 g/dL Critically low 3.4-5.0 [facility] Comment on above: Performed By: #### ERICK Whyte MP ####[facility] Berrjqfsup7201 [place] [address]Dr. Nahed Yañez Albumin/Globulin [Mass ratio] 0.8 {ratio} Normal [facility] Comment on above: Performed By: #### ERICK Whyte MP ####[facility] Plilffipms745[address] [place], [place] [address]Dr. Nahed Yañez ALP [Catalytic activity/Vol] 65 U/L Normal 46-116 [facility] Comment on above: Performed By: #### ERICK Whyte MP ####[facility] Ozdyvdjzbt0854 [place] [address]Dr. Nahed Yañez ALT [Catalytic activity/Vol] 27 U/L Normal 14-59 [facility] Comment on above: Performed By: #### ERICK Whyte MP ####[facility] Ftrmsrpdbp9637 [place] [address]Dr. Nahed Yañez Anion gap [Moles/Vol] 10.3 mmol/L Normal [facility] Comment on above: Performed By: #### ERICK Whyte MP ####[facility] Ghkycuuviy504[address] [place], [place] [address]Dr. Nahed Yañez AST [Catalytic activity/Vol] 11 U/L Critically low 15-37 [facility] Comment on above: Performed By: #### ERICK Whyte MP ####[facility] Cbunicpcra8446 [place] [address]Dr. Nahed Yañez Bilirubin [Mass/Vol] 0.3 mg/dL Normal 0.2-1.0 [facility] Comment on above: Performed By: #### C RENZO, ERICK ####[facility] Yiuefmfywy790[address] [place], [place] [address]Dr. Nahed Yañez Calcium [Mass/Vol] 8.1 mg/dL Critically low 8.5-10.1 [facility] Comment on above: Performed By: #### C RENZO, CMADM ####[facility] Bqffldthau1813[address] [place], [place] [address]Dr. Nahed Yañez Chloride [Moles/Vol] 98 mmol/L Normal 98-107 [facility] Comment on above: Performed By: #### C RENZO, CMADM ####[facility] Vzprxxqxiw204[address] [place], [place] [address]Dr. Nahed Yañez CO2 [Moles/Vol] 32.5 mmol/L Critically high 21.0-32.0 [facility] Comment on above: Performed By: #### C RENZO, CMADM ####[facility] Gryezxixhr911[address] [place], [place] [address]Dr. Nahed Yañez Creatinine [Mass/Vol] 0.94 mg/dL Normal 0.55-1.02 [facility] Comment on above: Performed By: #### C RENZO, CMADM ####[facility] Qbfbxwnbau2625[address] [place], [place] [address]Dr. Nahed Yañez EGFR-AF GERMAN >60 Normal >=60 [facility] Comment on above: Performed By: #### C RENZO, CMADM ####[facility] Sbwhghegzw6633[address] [place], [place] [address]Dr. Nahed Yañez EGFR-NON AF GERMAN >60 Normal >=60 [facility] Comment on above: Performed By: #### C RENZO, CMADM ####[facility] Miqyztynfg6425[address] [place], [place] [address]Dr. Nahed Yañez Globulin (S) [Mass/Vol] 3.2 g/dL Normal [facility] Comment on above: Performed By: #### C RENZO, CMADM ####[facility] Opwuzvycns9994 [place] [address]Dr. Nahed Yañez Glucose [Mass/Vol] 123 mg/dL Critically high 74-106 [facility] Comment on above: Performed By: #### C RENZO, CMADM ####[facility] Qxxetinfqd0949 [place] [address]Dr. Nahed Yañez Potassium [Moles/Vol] 3.8 mmol/L Normal 3.5-5.1 [facility] Comment on above: Performed By: #### C RENZO, CMADM ####[facility] Ynqfxqeouq9322 [place] [address]Dr. Nahed Yañez Protein [Mass/Vol] 5.9 g/dL Critically low 6.1-8.2 [facility] Comment on above: Performed By: #### C RENZO, CMADM ####[facility] Gajseayehq1940[address] [place], [place] [address]Dr. Nahed Yañez Sodium [Moles/Vol] 137 mmol/L Normal 136-145 [facility] Comment on above: Performed By: #### C RENZO, CMADM ####[facility] Mfcpluooyk8333 [place] [address]Dr. Nahed Yañez Urea nitrogen [Mass/Vol] 20.0 mg/dL Critically high 7.0-18.0 [facility] Comment on above: Performed By: #### C RENZO, CMADM ####[facility] Xxjzyronke034[address] [place], [place] [address]Dr. Nahed Otilio Urea nitrogen/Creatinine [Mass ratio] 21.3 mg/mg Normal [facility] Comment on above: Performed By: #### C RENZO, CMADM ####[facility] Lpeutuiwsu[address] [place] [address]Dr. Rosemarieashley Yañez BNPon 09-06-2021 Natriuretic peptide B (Bld) [Mass/Vol] 923.0 pg/mL Critically high <=900.0 [facility] Comment on above: Performed By: #### B MP, BNP, HSTROPN ####[facility] Hehkwsqwqr[address] [place], [place] [address]Dr. Nahed Yañez CBC AUTO DIFFon 09-06-2021 BASO # 0.1 103/ul Normal 0.0-0.1 [facility] Comment on above: Performed By: #### C BC ####[facility] Djxnxagkso8232 [place] [address]Dr. Nahed Yañez Basophils/100 WBC (Bld) 0.6 % Normal 0.2-2.0 [facility] Comment on above: Performed By: #### C BC ####[facility] Fpiphezvyv[address]4 [place] [address]Dr. Nahed Yañez EO # 0.3 103/ul Normal 0.0-0.7 [facility] Comment on above: Performed By: #### C BC ####[facility] Hqulmdwgom[address] [place], [place] [address]Dr. Nahed Yañez Eosinophils/100 WBC (Bld) 3.0 % Normal 0.9-7.0 [facility] Comment on above: Performed By: #### C BC ####[facility] [address] [place], [place] [address]Dr. Nahed Yañez Erythrocyte distribution width (RBC) [Ratio] 15.0 % Normal 11.0-15.0 [facility] Comment on above: Performed By: #### C BC ####[facility] [address] [place], [place] [address]Dr. Nahed Yañez Hematocrit (Bld) [Volume fraction] 48.1 % Critically high 36.0-48.0 [facility] Comment on above: Performed By: #### C BC ####[facility] [address] [place], [place] [address]Dr. Nahed Yañez Hemoglobin (Bld) [Mass/Vol] 15.5 g/dL Normal 12.0-16.0 [facility] Comment on above: Result Comment: delt a check called to Manisha WALKER Performed By: #### C BC ####[facility] [address] [place], [place] [address]Dr. Nahed Otilio IG # 0.46 10e3/ul Critically high 0.00-0.03 [facility] Comment on above: Performed By: #### C BC ####[facility] [address] [place] [id number]. Nahed Yañez IG % 4.2 % Critically high 0.0-0.5 [facility] Comment on above: Performed By: #### C BC ####[facility] Niglmlcrzh[address] [place] [id number]. Nahed Yañez LYMPH # 2.2 103/ul Normal 1.2-3.8 [facility] Comment on above: Performed By: #### C BC ####[facility] K[address] [place] [id number]. Rosemarieashley Yañez Lymphocytes/100 WBC (Bld) 20.6 % Normal 20.5-60.0 [facility] Comment on above: Performed By: #### C BC ####[facility] [address] [place] [address]Dr. Nahed Yañez MANUAL DIFF REQ NO Normal [facility] Comment on above: Performed By: #### C BC ####[facility] V[address] [place] [id number]. Nahed Yañez MCH (RBC) [Entitic mass] 28.2 pg Normal 26.7-34.0 [facility] Comment on above: Performed By: #### C BC ####[facility] Sf[address]wt[address]18[address] [place] [id number]. Nahed Yañez MCHC (RBC) [Mass/Vol] 32.2 g/dL Normal 29.9-35.2 [facility] Comment on above: Performed By: #### C BC ####[facility] [address] [place] [id number]. Nahed Yañez MCV (RBC) [Entitic vol] 87.5 fL Normal 81.0-99.0 [facility] Comment on above: Performed By: #### C BC ####[facility] [address] [place], [place] [id number]. Rosemarieashley Yañez MONO # 0.7 103/ul Normal 0.3-0.8 [facility] Comment on above: Performed By: #### C BC ####[facility] Etw[address] [place] [id number]. Nahed Yañez Monocytes/100 WBC (Bld) 6.4 % Normal 1.7-12.0 [facility] Comment on above: Performed By: #### C BC ####[facility] [address]mukbdkafs79[address] [place] [id number]. Nahed Yañez NEUT # 7.1 103/ul Critically high 1.4-6.5 [facility] Comment on above: Performed By: #### C BC ####[facility] Mqhwzplcrb034[address] [place] [id number]. Nahed Yañez Neutrophils/100 WBC (Bld) 65.2 % Normal 43.0-75.0 [facility] Comment on above: Performed By: #### C BC ####[facility] [address] [place] [id number]. Nahed Yañez Platelet mean volume (Bld) [Entitic vol] 8.9 fL Critically low 9.5-13.5 [facility] Comment on above: Performed By: #### C BC ####[facility] [address] [place] [address]Dr. Nahed Yañez PLT 390 103/ul Normal 150-450 [facility] Comment on above: Performed By: #### C BC ####[facility] Wg[address]lbedbt[address] [place] [id number]. Nahed Yañez RBC 5.50 106/ul Critically high 4.20-5.40 [facility] Comment on above: Performed By: #### C BC ####[facility] Mghghalyoj9675 [place] [id number]. Nahed Yañez WBC 10.8 103/ul Normal 4.0-11.0 [facility] Comment on above: Performed By: #### C BC ####[facility] Qpretjurqc2598 [place] [id number]. Nahed Yañez CULTURE BLOODon 09-06-2021 Microscopic examination of blood, culture Culture Observations: NO GROWTH AT 5 DAYS. Isolate 1 BC_BA_NA Normal [facility] Comment on above: Performed By: #### B LDCX2 ####[facility] Kp[address]is[address] [place] [phone]. Nahed Yañez Microscopic examination of blood, culture Culture Observations: NO GROWTH AT 5 DAYS. Normal [facility] Comment on above: Performed By: #### B LDCX1 ####[facility] [address] [place] [address]Dr. Nahed Otilio [facility]13 SARS-CoV-2 (COVID-19) RNA MIRNA+probe Ql (Unsp spec) Not detected Normal NOT DETECTED [facility] Comment on above: Result Comment: When diagnostic testing is negative, the possibility of a false negative should be considered inthe context of a patient's recent exposures and the presence of clinical signs and symptomsconsistent with SARS-CoV-2.This test is not yet approved or cleared by the [place] FDA. When there are no FDA-approved or cleared tests available, and other criteria are met, FDA can make tests available under an emergency access mechanism called an Emergency Use Authorization (EUA). The EUA for this test is supported by the Certified Adapted Physical Educator of Health and Human Service's declaration that circumstances exist to justify the emergency use of in vitro diagnostics for the detection and/or diagnosis of the virus that causes COVID-19. This EUA will remain in effect for the duration of the COVID-19 declaration justifying emergency of IVDs, unless it is terminated or revoked by the FDA (after which the test may no longer be used). Performed By: #### C VDTBH ####[facility] [address] [place] [address]Dr. Rosemarieashley Yañez LACTATE/LACTIC ACIDon 2021 Lactate [Moles/Vol] 0.1 mmol/L Critically low 0.4-2.0 [facility] Comment on above: Performed By: #### L ACT ####[facility] Zms[address]eg[address]q76[address] [place] [phone]. Rosemarieashley Yañez Lactate [Moles/Vol] 1.5 mmol/L Normal 0.4-2.0 [facility] Comment on above: Performed By: #### L ACT ####[facility] Y[address] [place] [address]Dr. Nahed Yañez POINT OF CARE GLUCOSEon 08-13 Glucose [Mass/Vol] 201 mg/dL Critically high 74-106 [facility] Comment on above: Performed By: #### P OCGLUC ####[facility] [address]itft[address] [place] [address]Dr. Nahed Yañez PROF CHEM 8 (BAS METB)on Anion gap [Moles/Vol] 14.8 mmol/L Normal [facility] Comment on above: Performed By: #### B MP, BNP, HSTROPN ####[facility] [address] [place], [place] [address]Dr. Nahed Yañez Calcium [Mass/Vol] 8.8 mg/dL Normal 8.5-10.1 [facility] Comment on above: Performed By: #### B MP, BNP, HSTROPN ####[facility] R[address] [place], [place] [address]Dr. Nahed Yañez Chloride [Moles/Vol] 95 mmol/L Critically low 98-107 [facility] Comment on above: Performed By: #### B MP, BNP, HSTROPN ####[facility] Wtq[address]mf[address] [place] [address]Dr. Nahed Yañez CO2 [Moles/Vol] 28.7 mmol/L Normal 21.0-32.0 [facility] Comment on above: Performed By: #### B MP, BNP, HSTROPN ####[facility] [address] [place], [place] [address]Dr. Nahed Yañez Creatinine [Mass/Vol] 0.98 mg/dL Normal 0.55-1.02 [facility] Comment on above: Performed By: #### B MP, BNP, HSTROPN ####[facility] Ddvqzfpsyf[address] [place] [address]Dr. Nahed Yañez EGFR-AF GERMAN >60 Normal >=60 [facility] Comment on above: Performed By: #### B MP, BNP, HSTROPN ####[facility] Ulmktzsp[address] [place] [address]Dr. Nahed Yañez EGFR-NON AF GERMAN 58 mL/min/1.73m2 Critically low >=60 [facility] Comment on above: Performed By: #### B MP, BNP, HSTROPN ####[facility] Ttov[address]fsw[address] [place] [address]Dr. Rosemarieashley Yañez Glucose [Mass/Vol] 150 mg/dL Critically high 74-106 [facility] Comment on above: Performed By: #### B MP, BNP, HSTROPN ####[facility] [address] [place] [address]Dr. Nahed Yañez Potassium [Moles/Vol] 4.5 mmol/L Normal 3.5-5.1 [facility] Comment on above: Performed By: #### B MP, BNP, HSTROPN ####[facility] Sn[address]qs[address] [place] [address]Dr. Nahed Yañez Sodium [Moles/Vol] 134 mmol/L Critically low 136-145 [facility] Comment on above: Performed By: #### B MP, BNP, HSTROPN ####[facility] P[address]xf[address]uls[address] [place] [address]Dr. Nahed Yañez Urea nitrogen [Mass/Vol] 19.0 mg/dL Critically high 7.0-18.0 [facility] Comment on above: Performed By: #### B MP, BNP, HSTROPN ####[facility] W[address]uv[address]eh[address] [place] [address]Dr. Nahed Yañez Urea nitrogen/Creatinine [Mass ratio] 19.4 mg/mg Normal [facility] Comment on above: Performed By: #### B MP, BNP, HSTROPN ####[facility] [address] [place], [place] [address]Dr. Rosemarieashley Otilio TROPONIN, HIGH SENSITIVITYon 09-06-2021 HSTROP 50.4 pg/mL Normal 4.0-51.3 [facility] Comment on above: Result Comment: CUT- OFF POINTS HAVE BEEN ESTABLISHED BASED ON THE FOURTH UNIVERSAL DEFINITIONS OF MYOCARDIALINFARCTION. THE UPPER REFERENCE LIMIT (URL) OF TROPONIN, DEFINED THE 99TH PERCENTILE OFcTnI DISTRIBUTION IN A REFERENCE POPULATION, HAS BEEN CONFIRMED THE DECISION THRESHOLDFOR CT DIAGNOSIS. Performed By: #### B MP, BNP, HSTROPN ####[facility] Qdh[address]ief[address]wc[address] [place] [phone]. Nahed Yañez XR CHEST 1 Von 09-06-2021 XR CHEST 1 V Normal [facility] Dipstick and Microscopicon 1 Appearance (U) Clear Normal Clear [facility] Comment on above: Order Comment: Name Collection Type:: Clean-Voided Midstream Performed By: #### A DDONUAPLUS #### [facility] [address] [place] [address] [place] Bacteria,Urine None Seen Normal None Seen [facility] Comment on above: Order Comment: Name Collection Type:: Clean-Voided Midstream Performed By: #### A DDONUAPLUS #### [facility] [address] [place] [address] [place] Bilirubin,Urine Negative Normal Negative [facility] Comment on above: Order Comment: Name Collection Type:: Clean-Voided Midstream Performed By: #### A DDONUAPLUS #### [facility] [address] [place] [address] [place] Color (U) Yellow Normal Yellow [facility] Comment on above: Order Comment: Name Collection Type:: Clean-Voided Midstream Performed By: #### A DDONUAPLUS #### [facility] [address] [place] [address] [place] Glucose Ql (U) >=1000 High Normal [facility] Comment on above: Order Comment: Name Collection Type:: Clean-Voided Midstream Performed By: #### A DDONUAPLUS #### [facility] [address] [place] [address] [place] Hyaline Casts,Urine None Seen Normal 0-8 [facility] Comment on above: Order Comment: Name Collection Type:: Clean-Voided Midstream Result Comment: PERF ORMED BY: [place] [address] PATHOLOGIST WOOL BRUSHER LAUREN DOMINGUEZ M.D. Performed By: #### A DDONUAPLUS #### [address] Ketones Ql (U) Negative Normal Negative [facility] Comment on above: Order Comment: Name Collection Type:: Clean-Voided Midstream Performed By: #### A DDONUAPLUS #### [address] Leukocyte esterase Test strip Ql (U) Negative Normal Negative [facility] Comment on above: Order Comment: Name Collection Type:: Clean-Voided Midstream Performed By: #### A DDONUAPLUS #### [address] Nitrite,Urine Negative Normal Negative [facility] Comment on above: Order Comment: Name Collection Type:: Clean-Voided Midstream Performed By: #### A DDONUAPLUS #### [place] [address] [place] Occult Blood,Urine Negative Normal Negative [facility] Comment on above: Order Comment: Name Collection Type:: Clean-Voided Midstream Result Comment: PERF ORMED BY: [place] [address] PATHOLOGIST WOOL BRUSHER LAUREN DOMINGUEZ M.D. Performed By: #### A DDONUAPLUS #### [address] pH (U) 6.5 [pH] Normal 5.0-9.0 [facility] Comment on above: Order Comment: Name Collection Type:: Clean-Voided Midstream Performed By: #### A DDONUAPLUS #### [place] [address] [place] Protein,Urine Trace High Negative [facility] Comment on above: Order Comment: Name Collection Type:: Clean-Voided Midstream Performed By: #### A DDONUAPLUS #### [place] [address] [place] RBC LM.HPF (Urine sed) [#/Area] 0 /[HPF] Normal 0-4 [facility] Comment on above: Order Comment: Name Collection Type:: Clean-Voided Midstream Performed By: #### A DDONUAPLUS #### [address] Specificy [place],Urine 1.024 Normal 1.001-1.030 [facility] Comment on above: Order Comment: Name Collection Type:: Clean-Voided Midstream Performed By: #### A DDONUAPLUS #### [address] Squamous Epithelial Cell,Urine None Seen Normal 0-2 [facility] Comment on above: Order Comment: Name Collection Type:: Clean-Voided Midstream Performed By: #### A DDONUAPLUS #### [address] Urobilinogen,Urine Normal Normal Normal [facility] Comment on above: Order Comment: Name Collection Type:: Clean-Voided Midstream Performed By: #### A DDONUAPLUS #### [address] WBC LM.HPF (Urine sed) [#/Area] 0 /[HPF] Normal 0-4 [facility] Comment on above: Order Comment: Name Collection Type:: Clean-Voided Midstream Performed By: #### A DDONUAPLUS #### [address] CBC with Diffon 09-08-2018 Abs. Basophil 0.03 k/uL Normal 0.00-0.20 [facility] Comment on above: Performed By: #### L IP, CMPX, CDP #### [facility] [address] [place] [id number] [employer] Pumper: Nino Farias MD Abs.Imm.Granulocyte 0.05 k/uL Normal 0.00-0.30 [facility] Comment on above: Performed By: #### L IP, CMPX, CDP #### [facility] [address] [place], [place] [address] [employer]: Nino Farias MD Abs.Neutrophil (Seg) 11.30 k/uL High 1.50-8.10 [facility] Comment on above: Performed By: #### L IP, CMPX, CDP #### [facility] [address] [place], [facility]83 [employer]: Nino Farias MD Basophils/100 WBC (Bld) 0 % Normal 0-2 [facility] Comment on above: Performed By: #### L IP, CMPX, CDP #### [facility] [address] [place], [facility]83 [employer] P[employer]: Nino Farias MD Eosinophils #/vol (Bld) 0.17 10*3/uL Normal 0.00-0.44 [facility] Comment on above: Performed By: #### L IP, CMPX, CDP #### [address] [place], [facility]83 [employer]: Nino Farias MD Eosinophils/100 WBC (Bld) 1 % Normal 1-4 [facility] Comment on above: Performed By: #### L IP, CMPX, CDP #### [address] [place], [facility]83 [employer] P[employer]: Nino Farias MD Erythrocyte distribution width Ratio (RBC) 12.5 % Normal 11.8-14.4 [facility] Comment on above: Performed By: #### L IP, CMPX, CDP #### [address] [place], [facility]83 [employer] P[employer]: Nino Farias MD Hematocrit Volume Fraction (Bld) 36.8 % Normal 36.3-47.1 [facility] Comment on above: Performed By: #### L IP, CMPX, CDP #### [facility] [address] [place], [facility]83 [employer] P[employer]: Nino Farias MD Hemoglobin mass conc (Bld) 11.6 g/dL Low 11.9-15.1 [facility] Comment on above: Performed By: #### L IP, CMPX, CDP #### [facility] [address] [place], [facility]83 [employer]: Nino Farias MD Immature granulocytes #/vol (Bld) 0 % Normal 0 [facility] Comment on above: Performed By: #### L IP, CMPX, CDP #### [facility] [address] [place], [facility]83 [employer] P[employer]: Nino Farias MD Lymphocytes #/vol (Bld) 2.56 10*3/uL Normal 1.10-3.70 [facility] Comment on above: Performed By: #### L IP, CMPX, CDP #### [address] [place], [facility]83 [employer]: Nino Farias MD Lymphocytes/100 WBC (Bld) 18 % Low 24-43 [facility] Comment on above: Performed By: #### L IP, CMPX, CDP #### [address] [place], [facility]83 [employer] P[employer]: Nino Farias MD MCH Entitic mass (RBC) 30.6 pg Normal 25.2-33.5 [facility] Comment on above: Performed By: #### L IP, CMPX, CDP #### [address] [place], [facility]83 [employer] P[employer]: Nino Farias MD MCHC mass conc (RBC) 31.5 g/dL Normal 28.4-34.8 [facility] Comment on above: Performed By: #### L IP, CMPX, CDP #### [address] [place] [address] [employer] P[employer]: Nino Farias MD MCV Entitic volume (RBC) 97.1 fL Normal 82.6-102.9 [facility] Comment on above: Performed By: #### L IP, CMPX, CDP #### [facility] [address] [place], [place] [address] [employer]: Nino Farias MD Monocytes #/vol (Bld) 0.55 10*3/uL Normal 0.10-1.20 [facility] Comment on above: Performed By: #### L IP, CMPX, CDP #### [facility] [address] [place], [place] [address] [employer]: Nino Farias MD Monocytes/100 WBC (Bld) 4 % Normal 3-12 [facility] Comment on above: Performed By: #### L IP, CMPX, CDP #### [facility] [address] [place], [facility]83 [employer] Pumper: Nino Farias MD Neutrophil (Seg) 77 % High 36-65 [facility] Comment on above: Performed By: #### L IP, CMPX, CDP #### [facility] [address] [place], [facility]83 [employer] P[employer]: Nino Farias MD NRBC Automated 0.0 per 100 WBC Normal 0.0 [facility] Comment on above: Performed By: #### L IP, CMPX, CDP #### [facility] [address] [place], [place] [address] [employer] Pumper: Nino Farias MD Platelet mean volume Entitic volume (Bld) 9.2 fL Normal 8.1-13.5 [facility] Comment on above: Performed By: #### L IP, CMPX, CDP #### [facility] [address] [place], [facility]83 [employer] Pumper: Nino Farias MD Platelets #/vol (Bld) 305 10*3/uL Normal 138-453 [facility] Comment on above: Performed By: #### L IP, CMPX, CDP #### [facility] [address] [place] 325[address] [employer] Pumper: Nino Farias MD RBC #/vol (Bld) 3.79 10*6/uL Low 3.95-5.11 [facility] Comment on above: Performed By: #### L IP, CMPX, CDP #### [facility] [address] [place], [place] [address] [employer] P[employer]: Nino Farias MD WBC #/vol (Bld) 14.7 10*3/uL High 3.5-11.3 [facility] Comment on above: Performed By: #### L IP, CMPX, CDP #### [facility] [address] [place], [place] [phone] [employer] Pumper: Nino Farias MD Auto Diff Performed NOT REPORTED Normal [facility] Comment on above: Performed By: #### L IP, CMPX, CDP #### [facility] [address] [place], [place] [address] [employer] Pumper: Nino Farias MD Platelets #/vol (Bld) NOT REPORTED Normal [facility] Comment on above: Performed By: #### L IP, CMPX, CDP #### [address] [place], [place] 7377383 [employer] Pumper: Nino Farias MD RBC morphology finding Nom (Bld) NOT REPORTED Normal [facility] Comment on above: Performed By: #### L IP, CMPX, CDP #### [facility] [address] [place], [place] [address] [employer] Pumper: Nino Farias MD WBC Morphology NOT REPORTED Normal [facility] Comment on above: Performed By: #### L IP, CMPX, CDP #### [facility] [address] [place], [place] 5264383 [employer] Pumper: Nino Farias MD Comp Metabolic Pr/rfx MGon 0 09-08-2018 ALT enzyme act/vol U/L Low 5-33 [facility] Comment on above: Performed By: #### L IP, CMPX, CDP #### [facility] [address] [place] [address] [employer] Pumper: Nino Farias MD (cont.) [facility] Comment on above: Result Comment: Aver age GFR for 50-59 years old: 93 mL/min/1.73sq m Chronic Kidney Disease: <60 mL/min/1.73sq m Kidney failure: <15 mL/min/1.73sq m eGFR calculated using average adult body mass. Additional eGFR calculator available at: http://www.[employer]/multiple_crcl_2011.htm Performed By: #### L IP, CMPX, CDP #### [facility] [address] [place] [address] [employer] Pumper: Nino Farias MD Albumin mass conc 4.0 g/dL Normal 3.5-5.2 [facility] Comment on above: Performed By: #### L IP, CMPX, CDP #### [facility] [address] [place] [address] [employer] Pumper: Nino Farias MD Albumin/Globulin mass ratio 1.3 {ratio} Normal 1.0-2.5 [facility] Comment on above: Performed By: #### L IP, CMPX, CDP #### [facility] [address] [place] [address] [employer] Pumper: Nino Farias MD Alkaline Phos 58 U/L Normal 35-104 [facility] Comment on above: Performed By: #### L IP, CMPX, CDP #### [facility] [address] [place] [address] [employer] Pumper: Nino Farias MD Anion gap molar conc 8 mmol/L Low 9-17 [facility] Comment on above: Performed By: #### L IP, CMPX, CDP #### [facility] [address] [place] [address] [employer] Pumper: Nino Farias MD AST enzyme act/vol 20 U/L Normal <32 [facility] Comment on above: Performed By: #### L IP, CMPX, CDP #### [facility] [address] [place] [address] [employer] Pumper: Nino Farias MD Bilirubin Ql (U) 0.17 mg/dL Low 0.3-1.2 [facility] Comment on above: Performed By: #### L IP, CMPX, CDP #### [facility] [address] [place] [address] [employer] Pumper: Nino Farias MD BUN/CRE Ratio 15 Normal 9-20 [facility] Comment on above: Performed By: #### L IP, CMPX, CDP #### [facility] [address] [place] [address] [employer] Pumper: Nino Farias MD Calcium mass conc 9.3 mg/dL Normal 8.6-10.4 [facility] Comment on above: Performed By: #### L IP, CMPX, CDP #### [facility] [address] [place] [address] [employer] Pumper: Nino Farias MD Chloride molar conc 97 mmol/L Low 98-107 [facility] [facility] Comment on above: Performed By: #### L IP, CMPX, CDP #### [facility] [address] [place] [address] [employer] P[employer]: Nino Farias MD CO2 molar conc 31 mmol/L Normal 20-31 [facility] Comment on above: Performed By: #### L IP, CMPX, CDP #### [facility] [address] [place] [address] [employer] P[employer]: Nino Farias MD Creatinine mass conc 1.22 mg/dL High 0.50-0.90 [facility] Comment on above: Performed By: #### L IP, CMPX, CDP #### [facility] [address] [place], [place] [id number] [employer]: Nino Farias MD GFR, Amer 55 mL/min Low >60 [facility] Comment on above: Performed By: #### L IP, CMPX, CDP #### [facility] [address] [place], [place] [address]483 [employer]: Nino Farias MD GFR,non Amer 45 mL/min Low >60 [facility] Comment on above: Performed By: #### L IP, CMPX, CDP #### [facility] [address] [place], [place] [id number] [employer] P[employer]: Nino Farias MD Glucose mass conc 93 mg/dL Normal 70-99 [facility] Comment on above: Performed By: #### L IP, CMPX, CDP #### [facility] [address] [place], [place] [id number] [employer] P[employer]: Nino Farias MD Potassium molar conc 4.5 mmol/L Normal 3.7-5.3 [facility] Comment on above: Performed By: #### L IP, CMPX, CDP #### [facility] [address] [place], [place] [address]83 [employer]: Nino Farias MD Protein mass conc 7.0 g/dL Normal 6.4-8.3 [facility] Comment on above: Performed By: #### L IP, CMPX, CDP #### [facility] [address] [place], [place] [address] [employer]: Nino Farias MD Sodium molar conc 136 mmol/L Normal 135-144 [facility] Comment on above: Performed By: #### L IP, CMPX, CDP #### [facility] [address] [place], [place] [id number] [employer] P[employer]: Nino Farias MD Staging: Normal [facility] Comment on above: Result Comment: Stag e 1: Some kidney damage normal GFR Stage 2: Mild kidney damage GFR 60-89 Stage 3: Moderate kidney damage GFR 30-59 Stage 4: Severe kidney damage GFR 15-29 Stage 5: Severe kidney damage GFR <15 ESRD - chronic treatment by dialysis or transplant Performed By: #### L IP, CMPX, CDP #### [facility] [address] [place], [place] [id number] [employer]: Nino Farias MD Urea nitrogen mass conc 18 mg/dL Normal 6-20 [facility] Comment on above: Performed By: #### L IP, CMPX, CDP #### [facility] [address] [place] [address] [employer] P[employer]: Nino Farias MD Lactic Acidon 09-08-2018 Lactate molar conc 1.2 mmol/L Normal 0.5-2.2 [facility] Comment on above: Performed By: #### L AC #### [facility] [address] [place], [place] [id number] [employer]: Nino Farias MD Lipaseon 09-08-2018 Lipase enzyme act/vol 27 U/L Normal 13-60 [facility] Comment on above: Performed By: #### L IP, CMPX, CDP #### [facility] [address] [place] [address] [employer] P[employer]: Nino Farias MD UA w/Reflex Cultureon 2018 Acetoacetic Acid,Ur Negative Normal NEG [facility] Comment on above: Performed By: #### U MICAO, UAX #### [facility] [address] [place] [address] [employer] P[employer]: Nino Farias MD Bilirubin.direct mass conc SMALL Abnormal NEG [facility] Comment on above: Performed By: #### U MICAO, UAX #### [facility] [address] [place] [address] [employer] P[employer]: Nino Farias MD Color Nom (U) YELLOW Normal YEL [facility] Comment on above: Performed By: #### U MICAO, UAX #### [facility] [address] [place], [place] [id number] [employer] Pumper: Nino Farias MD Glucose mass conc Negative Normal [facility] Comment on above: Performed By: #### U MICAO, UAX #### [facility] [address] [place] [address] [employer] Pumper: Nino Farias MD Hemoglobin mass conc (Bld) Negative Normal NEG [facility] Comment on above: Performed By: #### U MICAO, UAX #### [facility] [address] [place], [place] [address] [employer] P[employer]: Nino Farias MD Leuckocyte Esterase Negative Normal [facility] Comment on above: Performed By: #### U MICAO, UAX #### [facility] [address] [place] [address] [employer] P[employer]: Nino Farias MD Nitrite,Ur Negative Normal [facility] Comment on above: Performed By: #### U MICAO, UAX #### [facility] [address] [place] [address] [employer] P[employer]: Nino Farias MD PH,Ur 5.5 Normal 5.0-9.0 [facility] Comment on above: Performed By: #### U MICAO, UAX #### [facility] [address] [place] [address] [employer] P[employer]: Nino Farias MD Protein mass conc Negative Normal [facility] Comment on above: Performed By: #### U MICAO, UAX #### [facility] [address] [place] [address] [employer]: Nino Farias MD Spec. [place],Ur 1.010 Normal 1.010-1.020 [facility] Comment on above: Performed By: #### U MICAO, UAX #### [facility] [address] [place], [place] [id number] [employer]: Nino Farias MD Turbidity CLEAR Normal CLEAR [facility] Comment on above: Performed By: #### U MICAO, UAX #### [facility] [address] [place], [facility] [employer]: Nino Farias MD Urobilinogen,Ur Normal Normal NORM [facility] Comment on above: Performed By: #### U MICAO, UAX #### [facility] [address] [place], [place] [address]307483 [employer] Pumper: Nino Farias MD Comment NOT REPORTED Normal [facility] Comment on above: Performed By: #### U MICAO, UAX #### [facility] [address] [place], [facility] [employer] Pumper: Nino Farias MD Urinalysis,Microon 9 ----- Normal [facility] Comment on above: Performed By: #### U MICAO, UAX #### [facility] [address] [place], [place] [address] [employer]: Nino Farias MD Bacteria LM.HPF #/area (Urine sed) TRACE Abnormal NONE [facility] Comment on above: Performed By: #### U MICAO, UAX #### [facility] [address] [place], [place] [address]83 [employer] P[employer]: Nino Farias MD Epithelial cells LM.HPF #/area (Urine sed) None Normal 0-25 [facility] Comment on above: Performed By: #### U MICAO, UAX #### [facility] [address] [place], [place] [address] [employer]: Nino Farias MD RBC #/vol (U) None Normal 0-2 [facility] Comment on above: Performed By: #### U MICAO, UAX #### [facility] [address] [place] [address] [employer] P[employer]: Nino Farias MD WBC #/vol (U) 0 TO 2 Normal 0-5 [facility] Comment on above: Performed By: #### U MICAO, UAX #### [facility] [address] [place] [address] [employer]: Nino Farias MD Amorphous sediment LM Ql (Urine sed) NOT REPORTED Normal [facility] Comment on above: Performed By: #### U MICAO, UAX #### [facility] [address] [place] [address] [employer] P[employer]: Nino Farias MD Casts LM.LPF #/area (Urine sed) NOT REPORTED Normal [facility] Comment on above: Performed By: #### U MICAO, UAX #### [facility] [address] [place] [address] [employer]: Nino Farias MD Crystals LM Nom (Urine sed) NOT REPORTED Normal [facility] Comment on above: Performed By: #### U MICAO, UAX #### [facility] [address] [place], [place] [address] [employer] Pumper: Nino Farias MD Epithelial, Renal NOT REPORTED Normal 0 [facility] Comment on above: Performed By: #### U MICAO, UAX #### [facility] [address] [place], [place] 3094383 [employer] Pumper: Nino Farias MD Mucus Strands NOT REPORTED Normal [facility] Comment on above: Performed By: #### U MICAO, UAX #### [facility] [address] [place] [address] [employer] Pumper: Nino Farias MD Other Observations NOT REPORTED Normal NREQ [facility] Comment on above: Performed By: #### U MICAO, UAX #### [facility] [address] [place] [address] [employer] Pumper: Nino Farias MD Trichomonas NOT REPORTED Normal NONE [facility] Comment on above: Performed By: #### U MICAO, UAX #### [facility] [address] [place] [address] [employer] P[employer]: Nino Farias MD Yeast LM Ql (Urine sed) NOT REPORTED Normal NONE [facility] Comment on above: Performed By: #### U MICAO, UAX #### [facility] [address] [place] [address] [employer] Pumper: Nino Farias MD Vital Signs Date Time Vital Sign Value Performing Clinician Faci lity 08-09-2022 17:25-0400 Diastolic blood pressure 64 mm[Hg] Arsenio Martin [facility] 08-09-2022 17:25-0400 Heart rate 75 /min Arsenio Martin [facility] 08-09-2022 17:25-0400 Mean blood pressure 83 mm[Hg] Arsenio Martin [facility] 08-09-2022 17:25-0400 Respiratory rate 16 /min Arsenio Martin [facility] 08-09-2022 17:25-0400 SaO2% (BldA) [Mass fraction] 96 % Arsenio Martin [facility] 08-09-2022 17:25-0400 Systolic blood pressure 122 mm[Hg] Arsenio Martin [facility] 08-09-2022 16:00-0400 Diastolic blood pressure 56 mm[Hg] Arsenio Martin [facility] 08-09-2022 16:00-0400 Heart rate 64 /min Arsenio Martin [facility] 08-09-2022 16:00-0400 Mean blood pressure 72 mm[Hg] Arsenio Martin [facility] 08-09-2022 16:00-0400 SaO2% (BldA) [Mass fraction] 92 % Arsenio Martin [facility] 08-09-2022 16:00-0400 Systolic blood pressure 103 mm[Hg] Arsenio Martin [facility] 08-09-2022 15:00-0400 Diastolic blood pressure 67 mm[Hg] Arsenio Martin [facility] 08-09-2022 15:00-0400 Heart rate 61 /min Arsenio Martin [facility] 08-09-2022 15:00-0400 Mean blood pressure 80 mm[Hg] Arsenio Martin [facility] 08-09-2022 15:00-0400 Systolic blood pressure 106 mm[Hg] Arsenio Martin [facility] 08-09-2022 14:03-0400 SaO2% (BldA) [Mass fraction] 94.1 % Arsenio Martin [facility] Resp Auto SS 08-09-2022 13:10-0400 Body temperature 98.24 [degF] Arsenio Martin [facility] 08-09-2022 13:10-0400 Heart rate 70 /min Arsenio Martin [facility] 08-09-2022 13:10-0400 Respiratory rate 18 /min Arsenio Martin [facility] Encounters Encounter Date Encounter Type Care Provider Facility Start: 08-22-2022 End: 08-24-2022 Evaluation and management of inpatient DR ЕКАТЕРИНА RICHARDSON . Facility: Start: 08-09-2022 End: 08-09-2022 Emergency department patient visit Arsenio Martin Facility:[facility] Start: 08-09-2022 End: 08-09-2022 Emergency department patient visit Arsenio Martin [facility] Start: 07-30-2022 End: 08-01-2022 Evaluation and management of inpatient DR ЕКАТЕРИНА RICHARDSON . Facility: Start: 07-27-2022 End: 07-28-[address] ЕКАТЕРИНА RICHARDSON . Facility: Start: 05-08-2022 End: 05-09-[address] ЕКАТЕРИНА RICHARDSON . Facility: Start: 01-31-2022 End: 01-31-[address] ЕКАТЕРИНА RICHARDSON . Facility: Start: 11-01-2021 End: 11-03-2021 Evaluation and management of inpatient TAMIE MANUEL Facility:[facility] Start: 10-31-2021 End: 11-01-2021 Evaluation and management of inpatient DR ЕКАТЕРИНА RICHARDSON . Facility: Start: 09-28-2021 End: 09-29-[address] ЕКАТЕРИНА RICHARDSON . Facility: Start: 09-06-2021 End: 09-07-[address] ЕКАТЕРИНА RICHARDSON . Facility: Start: 09-08-2018 End: 09-08-2018 Emergency department patient visit KEISHA DORADO JR [facility] Procedures Date Procedure Procedure Detail Performing Clinician Start: 08-02-2022 Microscopic examinat ion of blood, culture DR ЕКАТЕРИНА RICHARDSON . Comment on above: Performed By: #### B [id number] ####[facility] [id number] [place], [place] [address]TeShaun Nahed Otilio Start: 11-02-2021 Antibody screen SAVANNAHI SA AD Comment on above: Performed By: #### 3 [id number], [id number] #### [facility] [address] [place] [address], [facility] Start: 07-16-2019 Phalangectomy of toe Fabián Martin Comment on above: medial base proximal phalanx fracture fragment to left 3rd toe Start: 09-08-2018 Urinalysis microscopic only KEISHA DORADO JR Start: 09-08-2018 Urnls dip stick/tabl et rgnt auto w/o microscopy KEISHA DORADO JR Start: 09-08-2018 Assay of lactate JESSICAA Pablo DORADO JR Start: 09-08-2018 Assay of lipase KEISHA DORADO JR Start: 09-08-2018 Blood count complete auto&auto difrntl wbc KEISHA DORADO JR Appendectomy Arsenio Martin Tonsillectomy and adenoidectomy Arsenio Martin Payers Date Payer Category Payer Medicare [id number] 1960 Unknown [id number] 2.16.8 [id number] 1960 Unknown [id number] 2.16.8 [id number] 1960 Unknown [id number] 2.16.8 [id number] 1961 Unknown [id number] 2.16.84 [id number] 1961 Unknown [id number] 2.16.84 [id number] 1961 Unknown [id number] 2.16.84 [id number] 1961 Unknown [id number] 2.16.84 [id number] 1961 Unknown [id number] 2.16.84 [id number] 1961 Unknown [id number] 2.16.84 [id number] 1961 Unknown [id number] 2.16.84 [id number] 1961 Unknown [id number] 2.16.84 [id number] 1959 Unknown [id number] Social History Date Type Detail Facility Start: 08-09-2022 Tobacco smoking status Heavy t obacco smoker (finding) [facility] Comment on above: 2 cigarettes a day Sex Assigned At Female [facility] Functional Status Date Assessment Result Facility 08-09-2022 Functional Status N/A [facility] Clinical Note 08-16-2022 Note Date & Type Note Facility 08-16-2022 Note Microbiology PROCEDURE: Blood Culture Charcoal [R1] SOURCE: Blood BODY SITE: Arm R COLLECTED DATE/TIME: 08/09/2022 14:30 EDT RECEIVED DATE/TIME: 08/09/2022 15:53 EDT START DATE/TIME: 08/09/2022 15:53 EDT FREE TEXT SOURCE: IV start/right forearm Nic PA-C, Clinton C Nic PA-C, Clinton C FINAL REPORTS Final Report [] Verified Date/Time: 08/16/2022 16:07 EDT No growth at 7 days. Performing Locations R1: This test was performed at: [facility], [address] [place] [address], [facility] , , [facility] Comment on above: Performed By: #### 1 [id number] #### [facility] [address] [place] [address] Clinical Note 08-16-2022 Note Date & Type Note Facility 08-16-2022 Note Microbiology PROCEDURE: Blood Culture Charcoal [R1] SOURCE: Blood BODY SITE: Arm L COLLECTED DATE/TIME: 08/09/2022 14:09 EDT RECEIVED DATE/TIME: 08/09/2022 14:17 EDT START DATE/TIME: 08/09/2022 14:17 EDT FREE TEXT SOURCE: lt ac Nic PA-C, Clinton C Nic PA-C, Clinton C FINAL REPORTS Final Report [] Verified Date/Time: 08/16/2022 15:58 EDT No growth at 7 days. Performing Locations R1: This test was performed at: [facility], [address] [place] [address], [id number] , [place], [facility] Comment on above: Performed By: #### 1 [id number] #### [facility] [address] [place] [id number] Hospital Discharge instructions 08-09-2022 Note Date & Type Note Facility 08-09-2022 Hospital Discharg e instructions Patient Education 08/09/2022 16:50:59 Chronic Obstructive Pulmonary Disease Chronic Obstructive Pulmonary Disease Chronic obstructive pulmonary disease (COPD) is a long-term (chronic) condition that affects the lungs. COPD is a general term that can be used to describe many different lung problems that cause lung swelling (inflammation) and limit airflow, including chronic bronchitis and emphysema. If you have COPD, your lung function will probably never return to normal. In most cases, it gets worse over time. However, there are steps you can take to slow the progression of the disease and improve your quality of life. What are the causes? This condition may be caused by: Smoking. This is the most common cause. Certain genes passed down through families. What increases the risk? The following factors may make you more likely to develop this condition: Secondhand smoke from cigarettes, pipes, or cigars. Exposure to chemicals and other irritants such as fumes and dust in the work environment. Chronic lung conditions or infections. What are the signs or symptoms? Symptoms of this condition include: Shortness of breath, especially during physical activity. Chronic cough with a large amount of thick mucus. Sometimes the cough may not have any mucus (dry cough). Wheezing. Rapid breaths. Dang or bluish discoloration (cyanosis) of the skin, especially in your fingers, toes, or lips. Feeling tired (fatigue). Weight loss. Chest tightness. Frequent infections. Episodes when breathing symptoms become much worse (exacerbations). Swelling in the ankles, feet, or legs. This may occur in later stages of the disease. How is this diagnosed? This condition is diagnosed based on: Your medical history. A physical exam. You may also have tests, including: Lung (pulmonary) function tests. This may include a spirometry test, which measures your ability to exhale properly. Chest X-ray. CT scan. Blood tests. How is this treated? This condition may be treated with: Medicines. These may include inhaled rescue medicines to treat acute exacerbations as well as long-term, or maintenance, medicines to prevent flare-ups of COPD. ?Bronchodilators help treat COPD by dilating the airways to allow increased airflow and make your breathing more comfortable. ?Steroids can reduce airway inflammation and help prevent exacerbations. Smoking cessation. If you smoke, your health care provider may ask you to quit, and may also recommend therapy or replacement products to help you quit. Pulmonary rehabilitation. This may involve working with a team of health care providers and specialists, such as respiratory, occupational, and physical therapists. Exercise and physical activity. These are beneficial for nearly all people with COPD. Nutrition therapy to gain weight, if you are underweight. Oxygen. Supplemental oxygen therapy is only helpful if you have a low oxygen level in your blood (hypoxemia). Lung surgery or transplant. Palliative care. This is to help people with COPD feel comfortable when treatment is no longer working. Follow these instructions at home: Medicines Take xavy-jvt-[id number] and prescription medicines (inhaled or pills) only as told by your health care provider. Talk to your health care provider before taking any cough or allergy medicines. You may need to avoid certain medicines that dry out your airways. Lifestyle If you are a smoker, the most important thing that you can do is to stop smoking. Do not use any products that contain nicotine or tobacco, such as cigarettes and e-cigarettes. If you need help quitting, ask your health care provider. Continuing to smoke will cause the disease to progress faster. Avoid exposure to things that irritate your lungs, such as smoke, chemicals, and fumes. Stay active, but balance activity with periods of rest. Exercise and physical activity will help you maintain your ability to do things you want to do. Learn and use relaxation techniques to manage stress and to control your breathing. Get the right amount of sleep and get quality sleep. Most adults need 7 or more hours per night. Eat healthy foods. Eating smaller, more frequent meals and resting before meals may help you maintain your strength. Controlled breathing Learn and use controlled breathing techniques as directed by your health care provider. Controlled breathing techniques include: Pursed lip breathing. Start by breathing in (inhaling) through your nose for 1 second. Then, purse your lips as if you were going to whistle and breathe out (exhale) through the pursed lips for 2 seconds. Diaphragmatic breathing. Start by putting one hand on your abdomen just above your waist. Inhale slowly through your nose. The hand on your abdomen should move out. Then purse your lips and exhale slowly. You should be able to feel the hand on your abdomen moving in as you exhale. Controlled coughing Learn and use controlled coughing to clear mucus from your lungs. Controlled coughing is a series of short, progressive coughs. The steps of controlled coughing are: 1.Lean your head slightly forward. 2.Breathe in deeply using diaphragmatic breathing. 3.Try to hold your breath for 3 seconds. 4.Keep your mouth slightly open while coughing twice. 5.Spit any mucus out into a tissue. 6.Rest and repeat the steps once or twice as needed. General instructions Make sure you receive all the vaccines that your health care provider recommends, especially the pneumococcal and influenza vaccines. Preventing infection and hospitalization is very important when you have COPD. Use oxygen therapy and pulmonary rehabilitation if directed to by your health care provider. If you require home oxygen therapy, ask your health care provider whether you should purchase a pulse oximeter to measure your oxygen level at home. Work with your health care provider to develop a COPD action plan. This will help you know what steps to take if your condition gets worse. Keep other chronic health conditions under control as told by your health care provider. Avoid extreme temperature and humidity changes. Avoid contact with people who have an illness that spreads from person to person (is contagious), such as viral infections or pneumonia. Keep all follow-up visits as told by your health care provider. This is important. Contact a health care provider if: You are coughing up more mucus than usual. There is a change in the color or thickness of your mucus. Your breathing is more labored than usual. Your breathing is faster than usual. You have difficulty sleeping. You need to use your rescue medicines or inhalers more often than expected. You have trouble doing routine activities such as getting dressed or walking around the house. Get help right away if: You have shortness of breath while you are resting. You have shortness of breath that prevents you from: ?Being able to talk. ?Performing your usual physical activities. You have chest pain lasting longer than 5 minutes. Your skin color is more blue (cyanotic) than usual. You measure low oxygen saturations for longer than 5 minutes with a pulse oximeter. You have a fever. You feel too tired to breathe normally. Summary Chronic obstructive pulmonary disease (COPD) is a long-term (chronic) condition that affects the lungs. Your lung function will probably never return to normal. In most cases, it gets worse over time. However, there are steps you can take to slow the progression of the disease and improve your quality of life. Treatment for COPD may include taking medicines, quitting smoking, pulmonary rehabilitation, and changes to diet and exercise. As the disease progresses, you may need oxygen therapy, a lung transplant, or palliative care. To help manage your condition, do not smoke, avoid exposure to things that irritate your lungs, stay up to date on all vaccines, and follow your health care provider's instructions for taking medicines. This information is not intended to replace advice given to you by your health care provider. Make sure you discuss any questions you have with your health care provider. Document Released: 02/07/2006 Document Revised: 04/12/2018 Document Reviewed: 06/04/2017 [employer] Patient Education Siine Follow Up Care 08/09/2022 13:09:28 With:Екатерина Richardson Address: [address] [place], [place] [id number] Business (1) When:08/12/2022 16:50:37 Comments:Call the office of your primary care doctor to arrange for follow-up within the above-stated timeframe. Follow-up with your primary care doctor about this ED visit. You should review your labs, imaging, and diagnoses from this ED visit with your primary care physician. If you were prescribed medications you should discuss possible side-effects and drug interactions with your pharmacist. Call 911 or go to the nearest Emergency Department if you develop any new or worsening symptoms. [facility] Evaluation + Plan note 08-09-2022 Note Date & Type Note Facility 08-09-2022 Evaluation + Plan note Extrac florinda from: Title:ED Note Author:Clinton Lucero PA-C e:08/09/22 COPD exacerbation (J44.1: Ch ronic obstructive pulmonary disease with (acute) exacerbation) Orders: albuterol-ipratropium, 3 mL, Soln-Inh, Inhalation, Once, Stop date 08/09/22 13:50:00 EDT, STAT, Start date 08/09/22 13:50:00 EDT brompheniramine/dextromethorphan/PSE, 5 mL, Oral, QID for cold symptoms, 200 mL, Refill(s) 0, [facility], 170.2, cm, 08/09/22 13:13:00 EDT, Height/Length Dosing, 81.6, kg, 08/09/22 13:13:00 EDT, Weight Dosing guaifenesin, 600 mg = 1 tab(s), Oral, q12hr, X 7 day(s), # 14 tab(s), Refills(s) 0, Pharmacy: [facility], 170.2, cm, 08/09/22 13:13:00 EDT, Height/Length Dosing, 81.6, kg, 08/09/22 13:13:00 EDT, Weight Dosing ketorolac, 30 mg = 1 mL, Injection, IV Push, Once, Stop date 08/09/22 15:57:00 EDT, STAT, Start date 08/09/22 15:57:00 EDT, 08/09/22 15:57:00 EDT lorazepam, 1 mg = 1 tab(s), Tab, Oral, Once, Stop date 08/09/22 13:52:00 EDT, STAT, Start date 08/09/22 13:52:00 EDT, 08/09/22 13:52:00 EDT methylPREDNISolone, 125 mg = 2 mL, Injection, IV Push, Once, Stop date 08/09/22 13:50:00 EDT, STAT, Start date 08/09/22 13:50:00 EDT, 08/09/22 13:50:00 EDT predniSONE, 60 mg = 3 tab(s), Oral, Daily, X 5 day(s), # 15 tab(s), Refills(s) 0, Pharmacy: [facility], 170.2, cm, 08/09/22 13:13:00 EDT, Height/Length Dosing, 81.6, kg, 08/09/22 13:13:00 EDT, Weight Dosing Automated Diff B-Type Natriuretic Peptide Basic Metabolic Panel Blood Culture Charcoal Blood Culture Charcoal Blood Gas Art, with Lytes, Gluc, Lact CBC w/ Auto Diff Continuous Pulse Oximetry CTA Chest ED Cardiac Monitoring eGFR Extra Blue Tube Extra Lav Tube Extra SST Tube Extra SST Tube Oxygen Therapy PT & PTT Saline Lock Insert Troponin 0 Hr. Troponin 3 Hr. XR Chest Single View Diagnostic Tests Pending * Blood Culture Charcoal 08/09/22 * Blood Culture Charcoal 08/09/22 [facility] Discharge summary note 11-03-2021 Note Date & Type Note Facility 11-03-2021 Note MR#: [id number] I [facility] Pt. Name: Vivian Vann Admitted: 11/01/2021 Discharged: 11/03/2021 Date of : 1960 Physician: Tamie Manuel MD DISCHARGE SUMMARY PRINCIPAL DIAGNOSIS: Jit-HB-lusyxkqgq myocardial infarction. SECONDARY DIAGNOSES: 1. Questionable small subsegmental PE in the right lower lobe, favored to be chronic per CT angio done outside facility. 2. Peptic ulcer disease. 3. Depression. 4. Chronic obstructive pulmonary disease. 5. THC use. 6. Nicotine use. HOSPITAL COURSE: Again, the patient was admitted to the hospital on 11/01/2021, with chest pain and she was found to have a htb-WB-ejyyvodyk CT. The patient underwent cardiac catheterization and had severe mid LAD stenosis for which a drug-eluting stent was placed. The patient did well. She was seen today alert and denies any chest pain. PHYSICAL EXAMINATION: HEENT: Eyes, extraocular muscles intact. NECK: Supple. No JVD. No lymphadenopathy. LUNGS: Clear to auscultation. HEART: S1, S2. ABDOMEN: Soft. Positive bowel sounds. EXTREMITIES: Positive pulses. MEDICATIONS ON DISCHARGE: Please review medication reconciliation form. Total time of discharge, at least 60 minutes. Electronically Signed by: Tamie Manuel MD 11/04/2021 04:08 P Tamie Manuel MD Date Dict: 11/03/2021/12:37 P/Tamie Manuel MD Date Trans: 11/03/2021 01:10 P/laura [id number] cc: Gasper Avendano M.D. [address] [facility] [address] [address]ат[address]ина [address] M.D. [facility] [address] [place] [address], [facility] [place] [address] [facility] Hospital course Narrative Note Date & Type Note Facility Hospital course Narrative No data available for this section [facility] Progress note Note Date & Type Note Facility Progress note No data available for this section [facility] Summary Purpose Family History No Family History Records FoundNo Family History Records FoundNo Family History Records FoundNo Family History Records FoundNo Family History Records Found Advance Directives No Advanced Directives Records FoundNo Advanced Directives Records FoundNo Advanced Directives Records FoundNo Advanced Directives Records FoundNo Advanced Directives Records Found Additional Source Comments INFORMATION SOURCE (unrecogn ized section and content) DATE CREATED AUTHOR 09/12/2018 [facility] DATE CREATED AUTHOR AUTHOR'S ORGANIZ ATION 07/01/2021 [facility] DATE CREATED AUTHOR AUTHOR'S ORGANIZ ATION 01/06/2022 [facility] DATE CREATED AUTHOR AUTHOR'S ORGANIZ ATION 08/18/2022 [facility] DATE CREATED AUTHOR AUTHOR'S ORGANIZ ATION 09/05/2022 [facility] Patient Care team informatio n (unrecognized section and content) Personnel Name: Екатерина Richardson MD Address: Address: [address] [place] [address] [address] FOR RECORDS PERTAINING TO PATIENTS WHO ARE OR HAVE BEEN ENROLLED IN A CHEMICAL DEPENDENCY/SUBSTANCEABUSE PROGRAM, SOME INFORMATION MAY BE OMITTED. This clinical summary was aggregated from multiple sources. Caution should be exercised in using it in the provision of clinical care. This summary normalizes information from multiple sources, and as a consequence, information in this document may materially change the coding, format and clinical context of patient data. In addition, data may be omitted in some cases. CLINICAL DECISIONS SHOULD BE BASED ON THE PRIMARY CLINICAL RECORDS. [employer] provides no warranty or guarantee of the accuracy or completeness of information in this document.
[2023-06-29] MEDS: OXYCODONE HCL/ACETAMINOPHEN 5MG/325MG 1 TAB PO (04:37)
[2023-06-29] MEDS: DIAZEPAM 5 MG TABLET PO (04:37)
[2023-06-29] MEDS: METHYLPREDNISOLONE SOD SUCC PF 125 MG/2 ML VIAL IM (04:37)
[2023-06-29] MEDS: ONDANSETRON 4 MG RAPDIS TABLET SL (04:37)
[2023-06-29 05:01] LABS: Basophils Absolute Auto 0.1 10^3/uL (0.0-0.1); Basophils Percent Auto 0.5 % (0.2-2.0); Eosinophils Absolute Auto 0.4 10^3/uL (0.0-0.7); Eosinophils Percent Auto 3.4 % (0.9-7.0); Hematocrit 41.4 % (36.0-48.0); Hemoglobin 12.3 g/dL (12.0-16.0); Immature Granulocytes Abs Auto 0.02 10^3/uL (0.00-0.03); Immature Granulocytes Pct Auto 0.2 % (0.0-0.5); Lymphocytes Absolute Auto 2.8 10^3/uL (1.2-3.8); Lymphocytes Percent Auto 25.7 % (20.5-60.0); Mean Corpuscular HGB Conc 29.7 g/dL (29.9-35.2); Mean Corpuscular Hemoglobin 27.5 pg (26.7-34.0); Mean Corpuscular Volume 92.6 fL (81.0-99.0); Mean Platelet Volume 11.2 fL (9.5-13.5); Monocytes Absolute Auto 0.9 10^3/uL (0.3-0.8); Neutrophils Absolute Auto 6.7 10^3/uL (1.4-6.5); Neutrophils Percent Auto 62.2 % (43.0-75.0); Platelet Count 238 10^3/uL (150-450); Red Blood Count 4.47 10^6/uL (4.20-5.40); Red Cell Distribution Width 15.1 % (11.0-15.0); White Blood Count 10.8 10^3/uL (4.0-11.0)
[2023-06-29 05:03] LABS: Bilirubin Urine NEGATIVE (NEGATIVE); Blood Urine NEGATIVE (NEGATIVE); Clarity Urine CLEAR (CLEAR); Color Urine LT. YELLOW (YELLOW); Glucose Urine UA >=1000 mg/dL (NEGATIVE); Ketones Urine NEGATIVE (NEGATIVE); Leukocyte Esterase Urine NEGATIVE (NEGATIVE); Nitrite Urine NEGATIVE (NEGATIVE); Protein Urine NEGATIVE (NEG/TRACE); Urobilinogen Urine 0.2 EU/dL (0.2-1.0); pH Urine 5.5 (5.0-9.0)
[2023-06-29 05:15] LABS: Bacteria Urine NONE SEEN #/HPF (NONE SEEN); Cast Seen? NONE SEEN #/LPF (NONE SEEN); Crystals Seen? None Seen #/HPF (None Seen); Mucus Urine NONE SEEN (NONE SEEN); RBC Urine 0-2 #/HPF (0-2); Squamous Epithelial Cell Urine RARE #/LPF (NONE/RARE); WBC Urine NONE SEEN #/HPF (NONE SEEN)
[2023-06-29 05:27] LABS: Alanine Aminotransferase 34 U/L (14-59); Albumin Level 3.2 g/dL (3.4-5.0); Alkaline Phosphatase 93 U/L (46-116); Anion Gap 10.3; Aspartate Amino Transferase 31 U/L (15-37); Bilirubin Total 0.3 mg/dL (0.2-1.0); Calcium 8.9 mg/dL (8.5-10.1); Carbon Dioxide 29.2 mmol/L (21.0-32.0); Chloride 110 mmol/L (98-107); Estimated GFR (African America >60 (>=60); Estimated GFR (Non-African Ame 50 (>=60); Globulin 3.3 g/dL; Glucose 122 mg/dL (74-106); Potassium 4.5 mmol/L (3.5-5.1); Sodium 145 mmol/L (136-145); Total Protein 6.5 g/dL (6.4-8.2)
--- NOTE | 2023-06-29 05:36 | ECG_ITS ---
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
[2023-06-29] MEDS: ASPIRIN 81 MG TAB.CHEW 324 MG PO (05:45)
--- NOTE | 2023-06-29 06:03 | PC.NURSE ---
placed on 2L/NC for patient comfort
--- NOTE | 2023-06-29 06:05 | XR_ITS ---
The [address] [address] Patient Name: EMERY JETT MRN: [id number] date: 1960 Sex: F Assigned Patient Location: ER Current Patient Location: ER Accession/Order Number: [id number] Exam Date: 06/29/2023 06:18 Report Date: 06/29/2023 06:36 At the request of: COSME MARKER Procedure: XR chest 1V EXAMINATION: XR chest 1V HISTORY: CP COMPARISON: XR chest 06/10/2023 FINDINGS: LUNGS: Hyperexpanded lungs with increased opacity over left lung base. VASCULATURE: No increased pulmonary vasculature. PLEURA: No pneumothorax, effusion, or pleural thickening. CARDIAC: No cardiomegaly or cardiac silhouette abnormality. MEDIASTINUM: No visible mass or adenopathy. BONES: No fracture or visible bone lesion. OTHER: Negative. XR/XR chest 1V IMPRESSION: 1. Hyper expanded lungs suggestive of COPD. 2. Interval increase in opacity of the left lung base suspected to represent a combination of anterior soft tissue artifact and mild left basilar infiltrates/atelectasis. Consider a PA/lateral chest x-ray for greater diagnostic sensitivity if needed. Electronically authenticated by: JOSY WEBER Date: 06/29/2023 06:36
[2023-06-29] MEDS: MORPHINE SULFATE 4 MG/ML VIAL IV (06:41)
[2023-06-29] MEDS: 0.9 % SODIUM CHLORIDE 1,000 ML 125 ML IV (06:41)
[2023-06-29 07:06] LABS: INR 0.96; Prothrombin Time 10.2 sec (9.0-11.6)
[2023-06-29 07:20] LABS: Troponin I High Sensitivity 570.8 pg/mL (4.0-51.3)
[2023-06-29 07:22] LABS: Creatine Kinase 45 U/L (26-192)
[2023-06-29] MEDS: IPRATROPIUM/ALBUTEROL SULFATE 3 ML AMPUL.NEB IH (07:22)
[2023-06-29] MEDS: HEPARIN SODIUM (PORCINE) 5,000 UNIT/ML VIAL 4000 UNIT IV (07:29)
[2023-06-29] MEDS: HEPARIN SODIUM,PORCINE/D5W 25,000 UNIT/500 ML IV.SOLN 16.329 UNIT IV (07:29)
[2023-06-29 10:32] LABS: Troponin I High Sensitivity 547.8 pg/mL (4.0-51.3)
== END 2023-06-29 09:49 | disposition short-term general hospital (02) ==
PROVIDERS: Emergency Medicine; Emergency Provider Emergency Medicine; PCP Family Medicine
DX: I21.4 Non-ST elevation (NSTEMI) myocardial infarction (principal); M54.42 Lumbago with sciatica, left side; M54.41 Lumbago with sciatica, right side; I10 Essential (primary) hypertension; E78.5 Hyperlipidemia, unspecified; I25.10 Atherosclerotic heart disease of native coronary artery without angina pectoris; G89.29 Other chronic pain; K58.9 Irritable bowel syndrome, unspecified; F41.9 Anxiety disorder, unspecified; Z95.5 Presence of coronary angioplasty implant and graft; F17.210 Nicotine dependence, cigarettes, uncomplicated; F12.90 Cannabis use, unspecified, uncomplicated; Z90.49 Acquired absence of other specified parts of digestive tract; Z79.82 Long term (current) use of aspirin; Z79.899 Other long term (current) drug therapy
CPT/HCPCS: 36415; 71045; 80053; 81001; 82550; 84484; 85025; 85610; 93005; 94640; 96361; 96374; 96375; 99285; J1644; J2270; J2930; Q0162

== ENCOUNTER 2023-07-22 04:40 | Emergency (ER) | payer SELFPAY ==
[2023-07-22] VITALS (13 sets, daily range): BP systolic 100–135; BP diastolic 60–83; PULSE 77–97; RESP 18–24; TEMP 36.8; O2SAT 94–97
--- NOTE | 2023-07-22 04:49 | ED_ITS ---
HPI - Anxiety General Chief Complaint: Anxiety Stated Complaint: SHORTNESS OF BREATH Time Seen by Provider: 07/22/23 04:49 Source: patient Mode of arrival: ambulance Limitations: no limitations History of Present Illness HPI narrative: past history of anxiety and CAD. states stent about 2 years ago. States pacemaker placed about 2 weeks ago. Presents this AM complaining of chest pain for 3 hours and also right sciatica pain present since yesterday Related Data Home Medications Medication Instructions Recorded Confirmed alprazolam 1 mg tablet 1 mg PO BID 06/10/23 06/29/23 aspirin 81 mg tablet,delayed 81 mg PO DAILY 06/10/23 06/29/23 release atorvastatin 80 mg tablet 80 mg PO DAILY 06/10/23 06/29/23 buspirone 10 mg tablet 10 mg PO BID 06/10/23 06/29/23 carvedilol 6.25 mg tablet 6.25 mg PO BIDWM 06/10/23 06/29/23 clopidogrel 75 mg tablet 75 mg PO DAILY 06/10/23 06/29/23 cyclobenzaprine 10 mg tablet 10 mg PO BID 06/10/23 06/29/23 dapagliflozin propanediol 10 mg 10 mg PO DAILY 06/10/23 06/29/23 tablet (Farxiga) gabapentin 300 mg capsule 300 mg PO TID 06/10/23 06/29/23 trazodone 50 mg tablet 50 mg PO DAILY 06/10/23 06/29/23 albuterol sulfate 90 mcg/actuation inhalation 06/29/23 aerosol inhaler pantoprazole 40 mg tablet,delayed mg PO 06/29/23 release Previous Rx's Medication Instructions Recorded levothyroxine 75 mcg tablet 75 mcg PO ACB #30 tabs 06/11/23 Allergies Allergy/AdvReac Type Severity Reaction Status Date / Time No Known Drug Allergies Allergy Verified 06/29/23 03:50 Review of Systems ROS Status of ROS 10 or more systems reviewed and unremark able except as noted in history and below [facility] Medical History IBS (irritable bowel syndrome) ?K58.9 - Irritable bowel syndrome without diarrhea (ICD-10) Anxiety ?F41.9 - Anxiety disorder, unspecified (ICD-10) Heart attack ?I21.9 - Acute myocardial infarction, unspecified (ICD-10) Sciatic leg pain ?M54.30 - Sciatica, unspecified side (ICD-10) Herniated disc, cervical ?M50.20 - Other cervical disc displacement, unspecified cervical region (ICD- 10) Surgical History History of appendectomy ?Z90.49 - Acquired absence of other specified parts of digestive tract (ICD- 10) History of heart artery stent ?Z95.5 - Presence of coronary angioplasty implant and graft (ICD-10) Family History Other Family history of diabetes mellitus Family history of myocardial infarction Social History Within the past year, how often did you have a drink containing alcohol: monthly or less Smoking status: Current every day smoker Nicotine containing products detail: 1 pack/week Non-prescribed substance use: cannabis (any form) Non-prescribed substance use details: smokes marijuana, gummies Highest level of school completed/degree received: high school graduate Exam Constitutional Vital Signs, click to edit/add: Last Vital Signs Temp 98.3 F 07/22/23 04:45 Pulse 80 07/22/23 04:45 Resp 20 07/22/23 04:45 BP 135/82 07/22/23 04:45 Pulse Ox 97 07/22/23 04:45 O2 Del Method Room Air 07/22/23 04:45 Common normals: no apparent distress (anxious), oriented x3 and alert HENMT Common normals: normocephalic and head/scalp atraumatic Eye Common normals: PERRL and EOMs intact bilaterally Chest Other: pacer site left chest wall Respiratory Common normals: normal respiratory effort, no retractions and no use of accessory muscles Cardio Common normals: regular rate, regular rhythm, S1 normal heart sound and S2 normal heart sound GI Common normals: Normal to inspection, nondistended, normoactive bowel sounds present, soft to palpation and non-tender Extremity Common normals: normal to inspection and full ROM Neuro Common normals: oriented x3, CN's II-XII intact bilaterally, moves all extremities and no focal motor deficits Psych Mood and affect: anxious Course Vital Signs Vital signs: Vital Signs Temperature 98.3 F 07/22/23 04:45 Pulse Rate 80 07/22/23 04:45 Respiratory Rate 20 07/22/23 04:45 Blood Pressure 135/82 07/22/23 04:45 Pulse Oximetry 97 07/22/23 04:45 Oxygen Delivery Method Room Air 07/22/23 04:45 Temperature 98.3 F 07/22/23 04:45 Pulse Rate 80 07/22/23 04:45 Respiratory Rate 20 07/22/23 04:45 Blood Pressure 135/82 07/22/23 04:45 Pulse Oximetry 97 07/22/23 04:45 Oxygen Delivery Method Room Air 07/22/23 04:45 MDM - Anxiety MDM Narrative Medical decision making narrative: patient presents with chest pain. History of CAD s/p stent 2 years ago. States she had a pacemaker 2 weeks ago. Arrives this AM with anxiety and complaining of left chest pain for 3 hours. Pain has now resolved. First set of enzymes with elevated troponin at 138. Discussed with electronic plotting system operator Conditioner Tumbler Operator DR Aquino. He feels it it possible the elevated troponin may be related to procedure from 2 weeks ago and recommeds repeating the troponin and also rule out pericardia effusion will order CT chest as I do not have Echo available patient reassessed . No recurrence of chest pain but continues to complain of sciatica pain. Solumedrol ordered Lab Data Labs: Lab Results 07/22/23 Range/Units 04:55 WBC 9.7 (4.0-11.0) 10^3/uL RBC 4.04 L (4.20-5.40) 10^6/uL Hgb 11.2 L (12.0-16.0) g/dL Hct 37.2 (36.0-48.0) % MCV 92.1 (81.0-99.0) fL MCH 27.7 (26.7-34.0) pg MCHC 30.1 (29.9-35.2) g/dL RDW 15.5 H (11.0-15.0) % Plt Count 326 (150-450) 10^3/uL MPV 9.7 (9.5-13.5) fL Neut % (Auto) 59.1 (43.0-75.0) % Lymph % (Auto) 27.5 (20.5-60.0) % Angelina % (Auto) 6.8 (1.7-12.0) % Eos % (Auto) 5.9 (0.9-7.0) % Baso % (Auto) 0.5 (0.2-2.0) % Neut # (Auto) 5.8 (1.4-6.5) 10^3/uL Lymph # (Auto) 2.7 (1.2-3.8) 10^3/uL Angelina # (Auto) 0.7 (0.3-0.8) 10^3/uL Eos # (Auto) 0.6 (0.0-0.7) 10^3/uL Baso # (Auto) 0.1 (0.0-0.1) 10^3/uL Abs Immat Gran (auto) 0.02 (0.00-0.03) 10^3/uL Imm/Tot Granulo (auto) 0.2 (0.0-0.5) % Sodium 144 (136-145) mmol/L Potassium 4.4 (3.5-5.1) mmol/L Chloride 108 H (98-107) mmol/L Carbon Dioxide 27.7 (21.0-32.0) mmol/L Anion Gap 12.7 BUN 17.0 (7.0-18.0) mg/dL Creatinine 1.26 H (0.55-1.02) mg/dL Est GFR ( Amer) 52 L (>=60) Est GFR (Non-Af Amer) 43 L (>=60) BUN/Creatinine Ratio 13.5 Glucose 212 H (74-106) mg/dL Calcium 8.8 (8.5-10.1) mg/dL Magnesium 2.0 (1.8-2.4) mg/dL Troponin I High Sens 138.2 H* (4.0-51.3) pg/mL Discharge Plan Discharge Patient Disposition: Still a Patient
--- OUTSIDE RECORDS SUMMARY | 2023-07-22 04:51 | XMS_ITS | CCD ---
Author Name Unknown Address [id number] [place] [address] Organization [facility] Care Team Providers Care Service Station Attendant Name Role Phone KEISHA DORADO JR Attending Unavailable PATRICIA CORDERO Primary Care Unavailable TAMIE FAJARDO Attending Unavailable UMAIR MANDUJANO Admitting Unavailable GASPER AVENDANO Referring Unavailable ЕКАТЕРИНА ROBERT Primary Care Unavailable Екатерина Robert Primary Care Physician DR ЕКАТЕРИНА CHARLES Consulting Unavailable JOSELINEY ., DR WILLAMS Attending Unavailable HOY ., DR WILLAMS Admitting Unavailable JAKOB ., DR WILLAMS Primary Care Unavailable HERMELINDA, DR KIRK Viera Consulting Unavailable MATTEO NGO Consulting Unavailable LINDA MARRERO Consulting Unavailable BRENNA DEE Consulting Unavailable JAKOB ., DR WILLAMS Consulting Unavailable JOSELINEY ., DR WILLAMS Attending Unavailable JAKOB ., DR WILLAMS Admitting Unavailable JAKOB Dunn, DR WILLAMS Primary Care Unavailable WINIFRED, DR EDGE Consulting Unavailable MATTEO [employer] Consulting Unavailable LINDA MARRERO Consulting Unavailable BETINA ALVAREZ Consulting Unavailable DR ЕКАТЕРИНА CHARLES Consulting Unavailable DR ЕКАТЕРИНА CHARLES Primary Care Unavailable IDRIS STORY Attending Unavailable IDRIS STORY Admitting Unavailable PRESTON SHELDON Consulting Unavailable DR ЕКАТЕРИНА CHARLES Consulting Unavailable JAKOB ., DR WILLAMS Primary Care Unavailable JAKOB ., DR WILLAMS Attending Unavailable JAKOB ., DR WILLAMS Admitting Unavailable JAKOB ., DR WILLAMS Consulting Unavailable JAKOB ., DR WILLAMS Attending Unavailable JAKOB ., DR WILLAMS Admitting Unavailable JAKOB ., DR WILLAMS Primary Care Unavailable ARELI, DR CHANTEL Valenzuela Consulting Unavailable DENEEN ., DR SHEPHERD Consulting Unavailable HOY ., DR WILLAMS Consulting Unavailable HOY ., DR WILLAMS Attending Unavailable HOY ., DR WILLAMS Admitting Unavailable HOY ., DR WILLAMS Primary Care Unavailable PATRICIO ., DR MIRNA Chaudhry Consulting Unavailable MAT[employer]O [employer] Consulting Unavailable ZENOBIA [...] HOY ., DR WILLAMS Primary Care Unavailable MAT[employer] Consulting Unavailable GRACIE MADISON Consulting Unavailable BENNY GRECO Consulting Unavailable Arsenio Martin Attending Unavailable Arsenio Martin Attending Unavailable MERZA, NOORALDIN Referring Unavailable MERZA, NOORALDIN Referring Unavailable ZENZ, ROSALBA Referring Unavailable DELBERT, UMAIR Referring Unavailable DELBERT, UMAIR Admitting Unavailable GANGWANI, MANESH LARSON Consulting Unavailab ARSENIO Chappell Referring Unavailable DANUTA KNOX Attending Unavailable MARKERSOCORRO Referring Unavailable CHADD ALCANTAR Attending Unavailable SCOTTY, HANI Admitting Unavailable DELBERT, UMAIR Referring Unavailable MERLE, LOREE Referring Unavailable GANGWANI, MANESH LARSON Referring Unavailab le GANGWANI, MANLAYNE LARSON Referring Unavailab luiza Bullimore, Magdalena E Attending Unavailable Elvin, Magdalena E Admitting Unavailable Екатерина Robert Primary Care Unavailable Allergies Allergy Classification Reported Allergen(s) Allergy Type Date of Onset Reaction(s) Facility (1 source) bee venom Drug allergy (disorder) 1 [facility] [place] Repository (1 source) house dust allergenic extract; 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: [HOUSE DUST] Drug Allergy 4 [facility] Repository (1 source) HAY FEVER AND ALLERGY RELIEF; 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: [HAY FEVER AND ALLERGY RELIEF] Propensity to adverse reactions to drug (disorder) 4 [facility] Repository Medications Current Medications Medication Drug Class(es) Dates Sig (Normalized) Sig (Original) albuterol HFA 90 mcg/inh MDI (2 sources) Start: 03-14-20 take 2 puff(s) by inhalation every four hours albuterol HFA 90 mcg/inh MDI 2 puff(s), Inhalation, q4hr, Refill(s) 0 Start Date: 03/14/21 Status: Ordered brompheniramine maleate 0.4 mg/ml / dextromethorphan hydrobromide 2 mg/ml / pseudoephedrine hydrochloride 6 mg/ml oral solution (2 sources) alpha-Adrenergic Agonist, Uncompetitive [id number] ate Receptor Antagonist, Sigma-1 Agonist Start: 08-10-19 take 5 mL by mouth four times daily Bromfed DM oral syrup 5 mL, Oral, QID for cold symptoms, 200 mL, Refill(s) 0, [facility], 170.2, cm, 08/09/22 13:13:00 EDT, Height/Length Dosing, 81.6, kg, 08/09/22 13:13:00 EDT, Weight Dosing Start Date: 08/09/22 Status: Ordered busPIRone hydrochloride 10 mg oral tablet (2 sources) Start: 04-05-20 take 1 tablet by mouth three times daily busPIRone 10 mg Tab 10 mg = 1 tab(s), Oral, TID, Refills(s) 0 Start Date: 04/05/21 Status: Ordered cyclobenzaprine hydrochloride 10 mg oral tablet (2 sources) Muscle Relaxant Start: 03-14-20 take 1 tablet [...] day(s), # 14 tab(s), Refills(s) 0, Pharmacy: [facility], 170.2, cm, 08/09/22 13:13:00 EDT, Height/Length Dosing, 81.6, kg, 08/09/22 13:13:00 EDT, Weight Dosing Start Date: 08/09/22 Stop Date: 08/16/22 Status: Ordered hydroCHLOROthiazide 12.5 mg oral tablet (2 sources) Thiazide Diuretic Start: 03-14-20 take 1 tablet by mouth once daily hydrochlorothiazide 12.5 mg Tab 12.5 mg = 1 tab(s), Oral, Daily, Refills(s) 0 Start Date: 03/14/21 Status: Ordered med. marijuana edibles (2 sources) Start: 07-10-19 med. marijuana edibles med. marijuana edibles, 1 gummy, Oral, Bedtime Start Date: 07/10/19 Status: Ordered pantoprazole 40 mg delayed release oral tablet (2 sources) Proton Pump Inhibitor Start: 03-14-20 take 1 [...] day(s), # 15 tab(s), Refills(s) 0, Pharmacy: [facility], 170.2, cm, 08/09/22 13:13:00 EDT, Height/Length Dosing, 81.6, kg, 08/09/22 13:13:00 EDT, Weight Dosing Start Date: 08/09/22 Stop Date: 08/14/22 Status: Ordered pregabalin 200 mg oral capsule (2 sources) Start: 03-15-20 take 1 capsule by mouth twice daily pregabalin 200 mg Cap 200 mg = 1 cap(s), Oral, BID, Refills(s) 0 Start Date: 03/15/21 Status: Ordered ProAir HFA 90 mcg/inh inhalation aerosol (2 sources) Start: 04-05-20 take 2 puff(s) by inhalation every four hours for wheezing ProAir HFA 90 mcg/inh inhalation aerosol 2 puff(s), Inhalation, q4hr for wheezing, 8.5 gram, Refill(s) 0, [facility], 170, cm, 03/29/21 14:50:00 EST, Height/Length Dosing, 77.4, kg, 03/30/21 9:32:00 EST, Weight Dosing Start Date: 04/05/21 Status: Ordered sucralfate 1000 mg oral tablet (2 sources) Aluminum Complex Start: 03-29-20 sucralfate 1 g Tab 1 gm = 1 tab(s), Oral, QIDACHS, Refills(s) 0 Start Date: 03/29/21 Status: Ordered traZODone hydrochloride 50 mg oral tablet (2 sources) Serotonin Reuptake Inhibitor Start: 03-14-20 take 1 tablet by mouth once daily at bedtime traZODONE 50 mg Tab 50 mg = 1 tab(s), Oral, Once a day (at bedtime), Refills(s) 0 Start Date: 03/14/21 Status: Ordered Completed/Discontinued Medications Medication Drug Class(es) Dates Sig (Normalized) Sig (Original) ibuprofen 800 mg oral tablet (2 sources) Nonsteroidal Anti-inflammatory Drug Start: 03-29-2021 take 1-3 tablets by mouth three times daily as needed ibuprofen 800 mg Tab 800 mg = 1 tab(s), Oral, TID, PRN Pain 1-3, Refills(s) 0 Start Date: 03/29/21 Status: Ordered Problems Active Problems Problem Classification Problem Date Documented Da te Episodic/Chronic Abdominal pain (4 sources) Periumbilical pain; 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: [Epigastric pain] Onset: 9 03-15-2021 Episodic Acute bronchitis (1 source) Acute bronchitis, unspecified; 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: [ACUTE BRONCHITIS UNSPECIFIED] Onset: 3 Episodic Acute myocardial infarction (4 sources) Non-ST elevation (NSTEMI) myocardial infarction; 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: [NON-ST ELEVATION MYOCARDIAL INFARCT] Onset: 2 Chronic Allergic reactions (1 source) Bee allergy status; 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: [BEE ALLERGY STATUS] Onset: 3 Episodic Anxiety disorders (7 sources) Anxiety; 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: [Mixed anxiety and depressive disorder] Onset: 3 07-10-2019 Chronic Bacterial infection; unspecified site (4 sources) History of methicillin resistant Staphylococcus aureus infection; 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: [Bacteremia] Onset: 3 07-10-2019 Episodic Cardiac dysrhythmias (1 source) Unspecified atrial fibrillation; 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: [Unspecified atrial fibrillation] Onset: 4 Chronic Cardiac dysrhythmias (3 sources) Bradycardia, unspecified; 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: [BRADYCARDIA UNSPECIFIED] Onset: 3 Episodic Chronic obstructive pulmonary disease and bronchiectasis (8 sources) Acute exacerbation of chronic obstructive airways disease; 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: [Chronic obstructive pulmonary disease with (acute) exacerbation] Onset: 2 Chronic Conduction disorders (4 sources) Presence of cardiac pacemaker; 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: [Presence of automatic (implantable) cardiac defibrillator] Onset: 4 Chronic Congestive heart failure; nonhypertensive (8 sources) Chronic combined systolic (congestive) and diastolic (congestive) heart failure; 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: [Unspecified diastolic (congestive) heart failure] Onset: 2 Chronic Coronary atherosclerosis and other heart disease (6 sources) Atherosclerotic heart disease of [place] coronary artery without angina pectoris; 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: [Old myocardial infarction] Onset: 3 Chronic Coronary atherosclerosis and other heart disease (2 sources) Coronary angioplasty status; 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: [Presence of coronary angioplasty implant and graft] Onset: 3 Episodic Deficiency and other anemia (2 sources) Anemia due to blood loss 03-15-2021 Chronic [...] [HYPERLIPIDEMIA UNSPECIFIED] Onset: 2 Chronic Esophageal disorders (3 sources) Gastroesophageal reflux disease; 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: [Gastro-esophageal reflux disease without esophagitis] Onset: 3 03-14-2021 Chronic Essential hypertension (3 sources) Hypertensive disorder; 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: [Essential (primary) hypertension] Onset: 3 07-10-2019 Chronic Fluid and electrolyte disorders (2 sources) Alkalosis; 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: [Hypo-osmolality and hyponatremia] Onset: 3 Episodic Gastrointestinal hemorrhage (2 sources) Melena 03-15-2021 Episodic Genitourinary symptoms and ill-defined [...] 2 Chronic Other aftercare (1 source) Other [facility] (current) drug therapy; 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: [OTH INK JET OPERATOR CURRENT DRUG THERAPY] Onset: 3 Episodic Other aftercare (1 source) 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; 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: [MCFP CURRENT USE OF ASPIRIN] Onset: 3 Episodic Other aftercare (1 source) nursing home (current) use of antithrombotics/antipl atelets; 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: [INK JET OPERATOR ANTITHROMBOT/ANTIPLATL ETS] Onset: 3 Episodic Other aftercare (1 source) termite control service representative (current) use of oral hypoglycemic drugs; 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: [INK JET OPERATOR USE ORAL HYPOGLYCEMIC DX] Onset: 3 Episodic Other connective tissue disease (2 sources) Fibromyalgia 07-10-2019 Episodic Other gastrointestinal disorders (2 sources) Irritable bowel syndrome 07-10-2019 Chronic Other gastrointestinal disorders (1 source) Irritable bowel syndrome without diarrhea; 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: [IRRITABLE BOWEL SYND W/O DIARRHEA] Onset: 3 Chronic Other gastrointestinal disorders (2 sources) Dysphagia 03-15-2021 Episodic Other gastrointestinal disorders (2 sources) Swallowing painful 03-15-2021 Episodic Other injuries and [...] Episodic Other nutritional; endocrine; and metabolic disorders (2 sources) Body mass index 25-29 - overweight 03-15-2021 Episodic Other screening for suspected conditions (not mental disorders or infectious disease) (4 sources) Encounter for screening for malignant neoplasm of rectum; 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: [Abnormal electrocardiogram [ECG] [EKG]] Onset: 2 Episodic Pneumonia (except that caused by tuberculosis or sexually transmitted disease) (4 sources) Pneumonia, unspecified organism; 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: [PNEUMONIA UNSPECIFIED ORGANISM] Onset: 3 Episodic Pulmonary heart disease (1 source) Chronic pulmonary embolism; 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: [CHRONIC PULMONARY EMBOLISM] Onset: 2 Chronic Residual codes; unclassified (2 sources) Chronic back pain 03-14-2021 Episodic Residual codes; unclassified (2 sources) Insomnia 03-14-2021 Episodic Residual codes; unclassified (1 [...] NONCOMPLIANCE W/ MED REGIMEN] Onset: 3 Episodic Residual codes; unclassified (1 source) Tobacco user; 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: [Tobacco use] Onset: 4 Episodic Septicemia (except in labor) (2 sources) Sepsis, unspecified organism; 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: [Severe sepsis without septic shock] Onset: 3 Episodic Spondylosis; intervertebral disc disorders; other back problems (2 sources) Prolapsed lumbar intervertebral disc 07-10-2019 Chronic Substance-related disorders (3 sources) Smoker; 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: [Nicotine dependence, cigarettes, uncomplicated] [...] HOMELESSNESS UNSPECIFIED; 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: [HOMELESSNESS UNSPECIFIED] Onset: 2 Unclassified (1 source) Low back pain, unspecified; 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: [Low back pain, unspecified] Onset: 4 Past or Other Problems Problem Classification Problem Date Documented Date Episodic/Chronic Deficiency and other anemia (1 source) Anemia, [...] SPEC ABNORM PLASMA PROTEINS] Onset: 02-02-2022 Episodic Residual codes; unclassified (1 source) Insomnia, unspecified; 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: [INSOMNIA UNSPECIFIED] Onset: 05-12-2022 Episodic Residual codes; unclassified (4 sources) Localized edema; 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: [LOCALIZED EDEMA] Onset: 09-28-2021 Episodic Spondylosis; intervertebral disc disorders; other back problems (1 source) Dorsalgia, unspecified; 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: [Dorsalgia, unspecified] Onset: 03-04-2021 Episodic Unclassified (1 source) Low back pain, unspecified; 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: [Low back pain, unspecified] Onset: 07-06-2023 Results Test Name Value Interpretation Reference Range Facility [id number] 36 Pts phone line is no t working [facility] 07-12-2023 36 Unable to reach pt o r leave message, phone line not in service [facility] 36 Patients phone is no t in working order. Tried calling pts ER contact but it is a food pantry and was only a VM option. Did not leave message. [facility] 07-11-2023 30 The patient is Moderately Stable - Low risk of patient condition declining or worsening The patient's goals for the shift include pain control The clinical goals for the shift include maintain pacemaker precautions Over the shift, the patient did not make progress toward the following goals. Barriers to progression include na. Recommendations to address these barriers include na. [facility] 30 The patient is Moderately Stable - Low risk of patient condition declining or worsening The patient's goals for the shift include pain control The clinical goals for the shift include maintain pacemaker precautions Over the shift, the patient made progress toward the following goals: Problem: Pain - Adult Goal: Verbalizes/displays adequate comfort level or baseline comfort level Outcome: Progressing Problem: Cardiovascular - Adult Goal: Maintains optimal cardiac output and hemodynamic stability Outcome: Progressing Goal: Absence of cardiac dysrhythmias or at baseline Outcome: Progressing Problem: Skin/Tissue Integrity - Adult Goal: Skin integrity remains intact Outcome: Progressing Goal: Incisions, wounds, or drain sites healing without S/S of infection Outcome: Progressing Goal: Oral mucous membranes remain intact Outcome: Progressing Problem: Gastrointestinal - Adult Goal: Minimal or absence of nausea and vomiting Outcome: Progressing Goal: Maintains or returns to baseline bowel function Outcome: Progressing Goal: Maintains adequate nutritional intake Outcome: Progressing Problem: Metabolic/Fluid and Electrolytes - Adult Goal: Electrolytes maintained within normal limits Outcome: Progressing Goal: Hemodynamic stability and optimal renal function maintained Outcome: Progressing Goal: Glucose maintained within prescribed range Outcome: Progressing Problem: Safety - Adult Goal: Free from fall injury Outcome: Progressing Problem: Discharge Planning Goal: Discharge to home or other facility with appropriate resources Outcome: Progressing Problem: Chronic Conditions and Co-morbidities Goal: Patient's chronic conditions and co-morbidity symptoms are monitored and maintained or improved Outcome: Progressing Problem: Musculoskeletal - Adult Goal: Return mobility to safest level of function Outcome: Progressing Goal: Maintain proper alignment of affected body part Outcome: Progressing Goal: Return ADL status to a safe level of function Outcome: Progressing Normal [facility] BASIC METABOLIC PANELon 06-15 Anion gap [Moles/Vol] 15 mmol/L Normal 7-20 [facility] Comment on above: Performed By: #### L [id number] #### [facility] ([facility]) [address] [place] [address] Calcium [Mass/Vol] 9.4 mg/dL Normal 8.6-10.3 [facility] Comment on above: Performed By: #### L [id number] #### [facility] ([facility]) [address] [place] [address] Chloride [Moles/Vol] 97 mmol/L Low 98-107 [facility] Comment on above: Performed By: #### L [id number] #### [facility] ([facility]) [address] [place] [address] CO2 [Moles/Vol] 27 mmol/L Normal 21-31 [facility] Comment on above: Performed By: #### L [id number] #### [facility] ([facility]) [address] [place] [address] Creatinine [Mass/Vol] 1.15 mg/dL Normal 0.60-1.20 [facility] Comment on above: Performed By: #### L [id number] #### [facility] ([facility]) [address] [place] [address] GLOMERULAR FILTRATION RATE ML/MIN/1.73 SQ M.PREDICTED 53.9 mL/min/1.73m*2 Low >60.0 [facility] Comment on above: Result Comment: The [facility]???s estimated glomerular filtration rate (eGFR) will no longer include consideration of race in its calculation. The National Kidney Foundation???s eGFR Task Force developed new recommendations for the estimation of the glomerular filtration rate in the [place] They recommend immediate implementation of the new equation refit without the race variable in all laboratories because the calculation does not include race. In addition to not including race in the calculation and reporting, it included diversity in its development, and has acceptable performance characteristics and potential consequences that do not disproportionately affect any one group of individuals. Performed By: #### L [id number] #### [facility] ([facility]) [address] [place] [address] Glucose [Mass/Vol] 143 mg/dL High 70-100 [facility] Comment on above: Performed By: #### L [id number] #### [facility] ([facility]) [address] [place] [address] Potassium [Moles/Vol] 3.9 mmol/L Normal 3.5-5.1 [facility] Comment on above: Performed By: #### L [id number] #### [facility] ([facility]) [address] [place] [address] Sodium [Moles/Vol] 135 mmol/L Low 136-145 [facility] Comment on above: Performed By: #### L [id number] #### [facility] ([facility]) [address] [place] [address] Urea nitrogen [Mass/Vol] 32 mg/dL High 7-25 [facility] Comment on above: Performed By: #### L [id number] #### [facility] ([facility]) [address] [place] [address] UREA NITROGEN/CREATININE (MASS RATIO) IN SER/PLAS 27.8 Normal [facility] Comment on above: Performed By: #### L [id number] #### [facility] ([facility]) [address] [facility] [place] [address] CBC WITH AUTO DIFFERENTIALon 07-11-2023 Basophils (Bld) [#/Vol] 0.03 10*3/uL Normal 0.00-0.20 [facility] Comment on above: Performed By: #### L [id number] #### [facility] ([facility]) [address] [place] [address] Basophils/100 WBC (Bld) 0.3 % Normal 0.0-1.0 [facility] Comment on above: Performed By: #### L [id number] #### [facility] ([facility]) [address] [place] [address] Eosinophils (Bld) [#/Vol] 0.32 10*3/uL Normal 0.00-0.50 [facility] Comment on above: Performed By: #### L [id number] #### [facility] ([facility]) [address] [place] [address] Eosinophils/100 WBC (Bld) 2.8 % Normal 0.0-6.0 [facility] Comment on above: Performed By: #### L [id number] #### [facility] ([facility]) [address] [place] [address] Erythrocyte distribution width (RBC) [Ratio] 15.3 % High 11.5-15.0 [facility] Comment on above: Performed By: #### L [id number] #### [facility] ([facility]) [address] [place] [address] ERYTHROCYTE MEAN CORPUSCULAR HEMOGLOBIN CONCENTRATION (G/DL) BY AUTOMATED 32.0 g/dL Normal 32.0-35.0 [facility] Comment on above: Performed By: #### L [id number] #### [facility] ([facility]) [address] [place] [address] Hematocrit (Bld) [Volume fraction] 40.9 % Normal 36.0-48.0 [facility] Comment on above: Performed By: #### L [id number] #### [facility] ([facility]) [address] [place] [address] Hemoglobin (Bld) [Mass/Vol] 13.1 g/dL Normal 12.0-15.0 [facility] Comment on above: Performed By: #### L [id number] #### [facility] ([facility]) [address] [place] [address] Immature granulocytes (Bld) [#/Vol] 0.04 10*3/uL Normal 0.00-0.20 [facility] Comment on above: Performed By: #### L [id number] #### [facility] ([facility]) [address] [place] [address] Immature granulocytes/100 WBC (Bld) 0.3 % Normal 0.0-1.0 [facility] Comment on above: Performed By: #### L [id number] #### [facility] ([facility]) [address] [place] [address] Lymphocytes (Bld) [#/Vol] 3.16 10*3/uL Normal 1.20-4.00 [facility] Comment on above: Performed By: #### L [id number] #### [facility] ([facility]) [address] [place] [address] Lymphocytes/100 WBC (Bld) 27.4 % Normal 20.0-45.0 [facility] Comment on above: Performed By: #### L [id number] #### [facility] ([facility]) [address] [place] [address] MCH (RBC) [Entitic mass] 27.9 pg Normal 27.0-33.0 [facility] Comment on above: Performed By: #### L [id number] #### [facility] ([facility]) [address] [place] [address] MCV (RBC) [Entitic vol] 87.0 fL Normal 82.0-98.0 [facility] Comment on above: Performed By: #### L [id number] #### [facility] ([facility]) [address] [place] [address] Monocytes (Bld) [#/Vol] 0.85 10*3/uL Normal 0.10-1.00 [facility] Comment on above: Performed By: #### L [id number] #### [facility] ([facility]) [address] [place] [address] Monocytes/100 WBC (Bld) 7.4 % Normal 5.0-12.0 [facility] Comment on above: Performed By: #### L [id number] #### [facility] ([facility]) [address] [place] [address] Neutrophils (Bld) [#/Vol] 7.12 10*3/uL Normal 1.60-7.60 [facility] Comment on above: Performed By: #### L [id number] #### [facility] ([facility]) [address] [place] [address] Neutrophils/100 WBC (Bld) 61.8 % Normal 40.0-72.0 [facility] Comment on above: Performed By: #### L [id number] #### [facility] [address] [place] [address] NRBC (PER 100 WBCS) BY AUTOMATED COUNT 0.0 % Normal 0 [facility] Comment on above: Performed By: #### L [id number] #### [facility] [address] [place] [address] PLATELETS (10*3/UL) IN BLOOD AUTOMATED COUNT 339 10*3/uL Normal 150-400 [facility] Comment on above: Performed By: #### L [id number] #### [facility] (BEAKER) [address] [place] [address] RBC (Bld) [#/Vol] 4.70 10*6/uL Normal 3.80-5.00 [facility] Comment on above: Performed By: #### L [id number] #### [facility] (BEAKER) [address] [place] [address] WBC (Bld) [#/Vol] 11.52 10*3/uL High 4.00-10.60 [facility] Comment on above: Performed By: #### L [id number] #### [facility] (BEAKER) [address] [place] [address] 30on 07-10-2023 30 Problem: Pain - Adul t Goal: Verbalizes/displays adequate comfort level or baseline comfort level Outcome: Progressing Flowsheets (Taken 07/10/2023726) Verbalizes/displays adequate comfort level or baseline comfort level: Encourage patient to monitor pain and request assistance Assess pain using appropriate pain scale Administer analgesics based on type and severity of pain and evaluate response Implement non-pharmacological measures as appropriate and evaluate response Consider cultural and social influences on pain and pain management Notify Licensed Independent Practitioner if interventions unsuccessful or patient reports new pain Problem: Cardiovascular - Adult Goal: Maintains optimal cardiac output and hemodynamic stability Outcome: Progressing Flowsheets (Taken 07/10/2023734) Maintains optimal cardiac output and hemodynamic stability: Monitor blood pressure and heart rate Monitor urine output and notify Licensed Independent Practitioner for values outside of normal range Assess for signs of decreased cardiac output Goal: Absence of cardiac dysrhythmias or at baseline Outcome: Progressing Flowsheets (Taken 07/10/2023734) Absence of cardiac dysrhythmias or at baseline: Monitor cardiac rate and rhythm Assess for signs of decreased cardiac output Administer antiarrhythmia medication and electrolyte replacement as ordered Problem: Skin/Tissue Integrity - Adult Goal: Skin integrity remains intact Outcome: Progressing Flowsheets (Taken 07/10/2023734) Skin integrity remains intact: Monitor for areas of redness and/or skin breakdown Change oxygen saturation probe site as needed Goal: Incisions, wounds, or drain sites healing without S/S of infection Outcome: Progressing Flowsheets (Taken 07/10/2023734) Incisions, wounds, or drain sites healing without sign and symptoms of infection: ADMISSION and DAILY: Assess and document risk factors for pressure ulcer development TWICE DAILY: Assess and document skin integrity TWICE DAILY: Assess and document dressing/incision, wound bed, drain sites and surrounding tissue Goal: Oral mucous membranes remain intact Outcome: Progressing Flowsheets (Taken 07/10/2023734) Oral mucous membranes remain intact: Assess oral mucosa and hygiene practices Implement preventative oral hygiene regimen Implement oral medicated treatments as ordered Problem: Gastrointestinal - Adult Goal: Minimal or absence of nausea and vomiting Outcome: Progressing Goal: Maintains or returns to baseline bowel function Outcome: Progressing Flowsheets (Taken 07/10/2023734) Maintains or returns to baseline bowel function: Assess bowel function Encourage oral fluids to ensure adequate hydration Goal: Maintains adequate nutritional intake Outcome: Progressing Flowsheets (Taken 07/10/2023734) Maintains adequate nutritional intake: Monitor percentage of each meal consumed Identify factors contributing to decreased intake, treat as appropriate Assist with meals as needed Goal: Establish and maintain optimal ostomy function Outcome: Progressing Problem: Metabolic/Fluid and Electrolytes - Adult Goal: Electrolytes maintained within normal limits Outcome: Progressing Flowsheets (Taken 07/10/2023734) Electrolytes maintained within normal limits: Monitor labs and assess patient for signs and symptoms of electrolyte imbalances Administer electrolyte replacement as ordered Monitor response to electrolyte replacements, including repeat lab results as appropriate Goal: Hemodynamic stability and optimal renal function maintained Outcome: Progressing Flowsheets (Taken 07/10/2023734) Hemodynamic stability and optimal renal function maintained: Monitor labs and assess for signs and symptoms of volume excess or deficit Monitor intake, output and patient weight Goal: Glucose maintained within prescribed range Outcome: Progressing Flowsheets (Taken 07/10/2023734) Glucose maintained within prescribed range: Assess for signs and symptoms of hyperglycemia and hypoglycemia Monitor blood glucose as ordered Administer ordered medications to maintain glucose within target range Assess barriers to adequate nutritional intake and initiate nutrition consult as needed Instruct patient on self management of diabetes and initiate consult as needed Problem: Safety - Adult Goal: Free from fall injury Outcome: Progressing Problem: Discharge Planning Goal: Discharge to home or other facility with appropriate resources Outcome: Progressing Flowsheets (Taken 07/10/2023734) Discharge to home or other facility with appropriate resources: Identify barriers to discharge with patient and caregiver Arrange for needed discharge resources and transportation as appropriate Identify discharge learning needs (meds, wound care, etc) Refer to discharge planning if patient needs post-hospital services based on physician order or complex ne (more content not included)... Normal [facility] 30 Daily Case Managemen t Update Multidisciplinary rounds have been completed. Barriers to Discharge: Pending clinical course and improvement in clinical condition. Plan for permanent pacemaker placement today as procedure was canceled yesterday. Diet: Dietary Orders (From admission, onward) Start Ordered 07/10/23 0001 Diet NPO Diet effective midnight Comments: Sips with medications Question: Reason for NPO: Answer: Operation/Procedure 07/09/23 1125 Physician Expected Discharge Date: Discharge Delays: PT Six Click Score: 24 OT Six Click Score: PT Recommendations: OT Recommendations: New Consults: Consult Orders (From admission, onward) Start Ordered 07/06/23 1051 Inpatient consult to Electrophysiology Once Specialty: Electrophysiology Provider: (Not yet assigned) Question Answer Comment [employer] ELECTROPHYSIOLOGY TEAM Reason for Consult? junctioal Level of Consultation Consultation and Management 07/06/23 1050 Normal [facility] 30 The patient is Moderately Stable - Low risk of patient condition declining or worsening The patient's goals for the shift include comfort The clinical goals for the shift include pacemaker placement Problem: Pain - Adult Goal: Verbalizes/displays adequate comfort level or baseline comfort level Outcome: Progressing Flowsheets (Taken 07/09/2023 0812 by Emerald Curtis RN) Verbalizes/displays adequate comfort level or baseline comfort level: Encourage patient to monitor pain and request assistance Assess pain using appropriate pain scale Administer analgesics based on type and severity of pain and evaluate response Implement non-pharmacological measures as appropriate and evaluate response Consider cultural and social influences on pain and pain management Notify Licensed Independent Practitioner if interventions unsuccessful or patient reports new pain Problem: Safety - Adult Goal: Free from fall injury Outcome: Progressing Flowsheets (Taken 07/09/2023 0750 by Emerald Curtis RN) Free from fall injury: Assess patient frequently for physical needs Identify cognitive and physical deficits and behaviors that affect risk of falls Krebs fall precautions as indicated by assessment Educate patient/family on patient safety, including physical limitations Instruct patient to call for assistance with activity based on assessment Modify environment to reduce risk of injury Consider OT/PT consult to assist with strengthening/mobilit y Problem: Discharge Planning Goal: Discharge to home or other facility with appropriate resources Outcome: Progressing Flowsheets (Taken 07/09/2023 0815 by Emerald Curtis RN) Discharge to home or other facility with appropriate resources: Identify barriers to discharge with patient and caregiver Arrange for needed discharge resources and transportation as appropriate Identify discharge learning needs (meds, wound care, etc) Arrange for interpreters to assist at discharge as needed Refer to discharge planning if patient needs post-hospital services based on physician order or complex needs related to functional status, cognitive ability or social support system Problem: Chronic Conditions and Co-morbidities Goal: Patient's chronic conditions and co-morbidity symptoms are monitored and maintained or improved Outcome: Progressing Flowsheets (Taken 07/09/2023814 by Emerald Curtis RN) Care Plan - Patient's Chronic Conditions and Co-Morbidity Symptoms are Monitored and Maintained or Improved: Monitor and assess patient's chronic conditions and comorbid symptoms for stability, deterioration, or improvement Collaborate with multidisciplinary team to address chronic and comorbid conditions and prevent exacerbation or deterioration Update acute care plan with appropriate goals if chronic or comorbid symptoms are exacerbated and prevent overall improvement and discharge Normal [facility] BASIC METABOLIC PANELon 06-15 Anion gap [Moles/Vol] 13 mmol/L Normal 7-20 [facility] Comment on above: Performed By: #### L [id number] ####[facility] (BEAKER)[address] [place] [address] Calcium [Mass/Vol] 9.9 mg/dL Normal 8.6-10.3 [facility] Comment on above: Performed By: #### L [id number] ####[facility] (BEAKER)[address] [place] [address] Chloride [Moles/Vol] 97 mmol/L Low 98-107 [facility] Comment on above: Performed By: #### L [id number] ####[facility] (BEAKER)[address] [place] [address] CO2 [Moles/Vol] 30 mmol/L Normal 21-31 [facility] Comment on above: Performed By: #### L [id number] ####[facility] (BEAKER)[address] [place] [address] Creatinine [Mass/Vol] 1.06 mg/dL Normal 0.60-1.20 [facility] Comment on above: Performed By: #### L [id number] ####[facility] ([facility] [place] [address] GLOMERULAR FILTRATION RATE ML/MIN/1.73 SQ M.PREDICTED 59.4 mL/min/1.73m*2 Low >60.0 [facility] Comment on above: Result Comment: The [facility]???s estimated glomerular filtration rate (eGFR) will no longer include consideration of race in its calculation. The National Kid[employer] Foundation???s eGFR Task Force developed new recommendations for the estimation of the glomerular filtration rate in the [place] They recommend immediate implementation of the new equation refit without the race variable in all laboratories because the calculation does not include race. In addition to not including race in the calculation and reporting, it included diversity in its development, and has acceptable performance characteristics and potential consequences that do not disproportionately affect any one group of individuals. Performed By: #### L [id number] ####[facility] ([facility])[address] [place] [address] Glucose [Mass/Vol] 139 mg/dL High 70-100 [facility] Comment on above: Performed By: #### L [id number] ####[facility] ([facility])[address] [place] [address] Potassium [Moles/Vol] 3.9 mmol/L Normal 3.5-5.1 [facility] Comment on above: Performed By: #### L [id number] ####[facility] ([facility])[address] [place] [address] Sodium [Moles/Vol] 136 mmol/L Normal 136-145 [facility] Comment on above: Performed By: #### L [id number] ####[facility] ([facility] [place] [address] Urea nitrogen [Mass/Vol] 23 mg/dL Normal 7-25 [facility] Comment on above: Performed By: #### L [id number] ####[facility] ([facility] [place] [address] UREA NITROGEN/CREATININE (MASS RATIO) IN SER/PLAS 21.7 Normal [facility] Comment on above: Performed By: #### L [id number] ####[facility] (BEAKER)[address] [place] [address] CBC WITH AUTO DIFFERENTIALon 07-10-2023 Basophils (Bld) [#/Vol] 0.02 10*3/uL Normal 0.00-0.20 [facility] Comment on above: Performed By: #### L [id number] ####[facility] ([facility])[address] [place] [address] Basophils/100 WBC (Bld) 0.2 % Normal 0.0-1.0 [facility] Comment on above: Performed By: #### L [id number] ####[facility] ([facility])[address] [place] [address] Eosinophils (Bld) [#/Vol] 0.53 10*3/uL High 0.00-0.50 [facility] Comment on above: Performed By: #### L [id number] ####[facility] ([facility])[address] [place] [address] Eosinophils/100 WBC (Bld) 5.0 % Normal 0.0-6.0 [facility] Comment on above: Performed By: #### L [id number] ####[facility] ([facility] [place] [address] Erythrocyte distribution width (RBC) [Ratio] 15.3 % High 11.5-15.0 [facility] Comment on above: Performed By: #### L [id number] ####[facility] ([facility] [place] [address] ERYTHROCYTE MEAN CORPUSCULAR HEMOGLOBIN CONCENTRATION (G/DL) BY AUTOMATED 32.9 g/dL Normal 32.0-35.0 [facility] Comment on above: Performed By: #### L [id number] ####[facility] (BEAKER)[address] [place] [address] Hematocrit (Bld) [Volume fraction] 42.6 % Normal 36.0-48.0 [facility] Comment on above: Performed By: #### L [id number] ####[facility] (BEAKER)[address] [place] [address] Hemoglobin (Bld) [Mass/Vol] 14.0 g/dL Normal 12.0-15.0 [facility] Comment on above: Performed By: #### L [id number] ####[facility] (BEAKER)[address] [place] [address] Immature granulocytes (Bld) [#/Vol] 0.02 10*3/uL Normal 0.00-0.20 [facility] Comment on above: Performed By: #### L [id number] ####[facility] ([facility])[address] [place] [address] Immature granulocytes/100 WBC (Bld) 0.2 % Normal 0.0-1.0 [facility] Comment on above: Performed By: #### L [id number] ####[facility] ([facility] [place] [address] Lymphocytes (Bld) [#/Vol] 3.34 10*3/uL Normal 1.20-4.00 [facility] Comment on above: Performed By: #### L [id number] ####[facility] (BEAKER)[address] [place] [address] Lymphocytes/100 WBC (Bld) 31.7 % Normal 20.0-45.0 [facility] Comment on above: Performed By: #### L [id number] ####[facility] (BEAKER)[address] [place] [address] MCH (RBC) [Entitic mass] 28.3 pg Normal 27.0-33.0 [facility] Comment on above: Performed By: #### L [id number] ####[facility] (BEAKER)[address] [place] [address] MCV (RBC) [Entitic vol] 86.2 fL Normal 82.0-98.0 [facility] Comment on above: Performed By: #### L [id number] ####[facility] (BEAKER)[address] [place] [address] Monocytes (Bld) [#/Vol] 0.60 10*3/uL Normal 0.10-1.00 [facility] Comment on above: Performed By: #### L [id number] ####[facility] (BEAKER)[address] [place] [address] Monocytes/100 WBC (Bld) 5.7 % Normal 5.0-12.0 [facility] Comment on above: Performed By: #### L [id number] ####[facility] (BEAKER)[address] [place] [address] Neutrophils (Bld) [#/Vol] 6.01 10*3/uL Normal 1.60-7.60 [facility] Comment on above: Performed By: #### L [id number] ####[facility] (BEAKER)[address] [place] [address] Neutrophils/100 WBC (Bld) 57.2 % Normal 40.0-72.0 [facility] Comment on above: Performed By: #### L [id number] ####[facility] (BEAKER)[address] [place] [address] NRBC (PER 100 WBCS) BY AUTOMATED COUNT 0.0 % Normal 0 [facility] Comment on above: Performed By: #### L [id number] ####[facility] (BEAKER)[address] [place] [address] PLATELETS (10*3/UL) IN BLOOD AUTOMATED COUNT 329 10*3/uL Normal 150-400 [facility] Comment on above: Performed By: #### L [id number] ####[facility] (BEAKER)[address] [place] [address] RBC (Bld) [#/Vol] 4.94 10*6/uL Normal 3.80-5.00 [facility] Comment on above: Performed By: #### L [id number] ####[facility] (BEAKER)[address] [place] [address] WBC (Bld) [#/Vol] 10.52 10*3/uL Normal 4.00-10.60 [facility] Comment on above: Performed By: #### L [id number] ####[facility] ([place]RIY)[address] [place] [address] HPon 07-10-2023 HP History Of Present Illness Vivian Vann is a 63 y.o. female presenting with asystole. Past Medical History She has no past medical history on file. Surgical History She has no past surgical history on file. Social History She reports that she has been smoking cigarettes. She started smoking about 41 years ago. She has a 41.00 pack-year smoking history. She does not have any smokeless tobacco history on file. She reports current drug use. Drug: Marijuana. No history on file for alcohol use. Allergies Hay fever and allergy relief and House dust Medications Medications Prior to Admission Medication Sig Dispense Refill Last Dose albuterol 90 mcg/actuation inhaler Inhale 2 puffs every 6 (six) hours if needed for wheezing. ALPRAZolam (Xanax) 1 mg tablet Take 1 mg by mouth Twice daily at 6am and 6pm. aspirin 81 mg EC tablet Take 81 mg by mouth in the morning. atorvastatin (Lipitor) 80 mg tablet Take 80 mg by mouth in the morning. busPIRone (Buspar) 10 mg tablet Take 10 mg by mouth in the morning and at bedtime. clopidogrel (Plavix) 75 mg tablet Take 75 mg by mouth in the morning. cyclobenzaprine (Flexeril) 10 mg tablet Take 10 mg by mouth if needed in the morning and at bedtime for muscle spasms. dapagliflozin propanediol (Farxiga) 10 mg Take 10 mg by mouth in the morning. furosemide (Lasix) 40 mg tablet Take 1 tablet (40 mg) by mouth in the morning. 30 tablet 0 gabapentin (Neurontin) 300 mg capsule Take 300 mg by mouth in the morning, at noon, and at bedtime. pantoprazole (ProtoNix) 40 mg EC tablet Take 40 mg by mouth before breakfast. Do not crush, chew, or split. spironolactone (Aldactone) 25 mg tablet Take 1 tablet (25 mg) by mouth in the morning for 30 doses. 30 tablet 0 traZODone (Desyrel) 50 mg tablet Take 50 mg by mouth at bedtime. Review of Systems Physical Exam Last Recorded Vitals Blood pressure 92/65, pulse 75, temperature 36.5 ???C (97.7 ???F), temperature source Temporal, resp. rate 17, height 1.72 m (5' 7.72 ), weight 70.2 kg (154 lb 12.8 oz), SpO2 93 %. Relevant Results asystole Assessment/Plan Principal Problem: Bradycardia Active Problems: Junctional bradycardia Pacemaker Loree Chance MD [facility] 30on 07-09-2023 30 Problem: Cardiovascular - Adult Goal: Maintains optimal cardiac output and hemodynamic stability Outcome: Progressing Flowsheets (Taken 07/09/2023814) Maintains optimal cardiac output and hemodynamic stability: Monitor blood pressure and heart rate Monitor urine output and notify Licensed Independent Practitioner for values outside of normal range Assess for signs of decreased cardiac output Goal: Absence of cardiac dysrhythmias or at baseline Outcome: Progressing Flowsheets (Taken 07/09/2023814) Absence of cardiac dysrhythmias or at baseline: Monitor cardiac rate and rhythm Assess for signs of decreased cardiac output Administer antiarrhythmia medication and electrolyte replacement as ordered Problem: Skin/Tissue Integrity - Adult Goal: Skin integrity remains intact Outcome: Progressing Flowsheets (Taken 07/09/2023814) Skin integrity remains intact: Monitor for areas of redness and/or skin breakdown Change oxygen saturation probe site as needed Goal: Incisions, wounds, or drain sites healing without S/S of infection Outcome: Progressing Flowsheets (Taken 07/09/2023814) Incisions, wounds, or drain sites healing without sign and symptoms of infection: ADMISSION and DAILY: Assess and document risk factors for pressure ulcer development TWICE DAILY: Assess and document skin integrity TWICE DAILY: Assess and document dressing/incision, wound bed, drain sites and surrounding tissue Goal: Oral mucous membranes remain intact Outcome: Progressing Flowsheets (Taken 07/09/2023814) Oral mucous membranes remain intact: Assess oral mucosa and hygiene practices Implement preventative oral hygiene regimen Implement oral medicated treatments as ordered Problem: Gastrointestinal - Adult Goal: Minimal or absence of nausea and vomiting Outcome: Progressing Goal: Maintains or returns to baseline bowel function Outcome: Progressing Flowsheets (Taken 07/09/2023814) Maintains or returns to baseline bowel function: Assess bowel function Encourage oral fluids to ensure adequate hydration Goal: Maintains adequate nutritional intake Outcome: Progressing Flowsheets (Taken 07/09/2023814) Maintains adequate nutritional intake: Monitor percentage of each meal consumed Identify factors contributing to decreased intake, treat as appropriate Assist with meals as needed Goal: Establish and maintain optimal ostomy function Outcome: Progressing Problem: Metabolic/Fluid and Electrolytes - Adult Goal: Electrolytes maintained within normal limits Outcome: Progressing Flowsheets (Taken 07/09/2023814) Electrolytes maintained within normal limits: Monitor labs and assess patient for signs and symptoms of electrolyte imbalances Administer electrolyte replacement as ordered Monitor response to electrolyte replacements, including repeat lab results as appropriate Goal: Hemodynamic stability and optimal renal function maintained Outcome: Progressing Flowsheets (Taken 07/09/2023814) Hemodynamic stability and optimal renal function maintained: Monitor labs and assess for signs and symptoms of volume excess or deficit Monitor intake, output and patient weight Monitor urine specific gravity, serum osmolarity and serum sodium as indicated or ordered Goal: Glucose maintained within prescribed range Outcome: Progressing Flowsheets (Taken 07/09/2023814) Glucose maintained within prescribed range: Monitor blood glucose as ordered Assess for signs and symptoms of hyperglycemia and hypoglycemia Administer ordered medications to maintain glucose within target range The patient is Moderately Stable - Low risk of patient condition declining or worsening The patient's goals for the shift include comfort The clinical goals for the shift include pacemaker placement without issues Normal [facility] 30 Daily Case Managemen t Update Multidisciplinary rounds have been completed. Barriers to Discharge: Pending clinical course and improvement in clinical condition. Patient is planned to have permanent pacemaker placement today. Diet: Dietary Orders (From admission, onward) Start Ordered 07/09/23 0001 Diet NPO Diet effective midnight Comments: Sips with meds Question: Reason for NPO: Answer: Operation/Procedure 07/08/23 1015 07/06/23 1844 Special Kitchen Request Once Comments: Patient requesting mashed potatoes, butter, pepper, and healthy macaroni and cheese please 07/06/23 1844 07/06/23 1817 Special Kitchen Request Once Comments: Patient requesting 2 prune juices please 07/06/23 1816 Physician Expected Discharge Date: Discharge Delays: PT Six Click Score: 24 OT Six Click Score: PT Recommendations: OT Recommendations: New Consults: Consult Orders (From admission, onward) Start Ordered 07/06/23 1051 Inpatient consult to Electrophysiology Once Specialty: Electrophysiology Provider: (Not yet assigned) Question Answer Comment [employer]ing [employer] ELECTROPHYSIOLOGY TEAM Reason for Consult? junctioal Level of Consultation Consultation and Management 07/06/23 1050 Normal [facility] BASIC METABOLIC PANELon 06-15 Anion gap [Moles/Vol] 9 mmol/L Normal 7-20 [facility] Comment on above: Performed By: #### L [id number] #### [facility] ([facility]) [address] [place] [address] Calcium [Mass/Vol] 9.1 mg/dL Normal 8.6-10.3 [facility] Comment on above: Performed By: #### L [id number] #### [facility] (AKER) [address] [place] [address] Chloride [Moles/Vol] 99 mmol/L Normal 98-107 [facility] Comment on above: Performed By: #### L [id number] #### [facility] (BEAKER) [address] [place] [address] CO2 [Moles/Vol] 32 mmol/L High 21-31 [facility] Comment on above: Performed By: #### L [id number] #### [facility] (BEAKER) [address] [place] [address] Creatinine [Mass/Vol] 0.98 mg/dL Normal 0.60-1.20 [facility] Comment on above: Performed By: #### L [id number] #### [facility] ([facility] [address] [place] [address] GLOMERULAR FILTRATION RATE ML/MIN/1.73 SQ M.PREDICTED 65.3 mL/min/1.73m*2 Normal >60.0 [facility] Comment on above: Result Comment: The [facility]???s estimated glomerular filtration rate (eGFR) will no longer include consideration of race in its calculation. The National Kidney Foundation???s eGFR Task Force developed new recommendations for the estimation of the glomerular filtration rate in the [place] They recommend immediate implementation of the new equation refit without the race variable in all laboratories because the calculation does not include race. In addition to not including race in the calculation and reporting, it included diversity in its development, and has acceptable performance characteristics and potential consequences that do not disproportionately affect any one group of individuals. Performed By: #### L [id number] #### [facility] ([facility]) [address] [facility] [place] [address] Glucose [Mass/Vol] 131 mg/dL High 70-100 [facility] Comment on above: Performed By: #### L [id number] #### [facility] ([facility]) [address] [place] [address] Potassium [Moles/Vol] 4.3 mmol/L Normal 3.5-5.1 [facility] Comment on above: Performed By: #### L [id number] #### [facility] ([facility]) [address] [place] [address] Sodium [Moles/Vol] 136 mmol/L Normal 136-145 [facility] Comment on above: Performed By: #### L [id number] #### [facility] ([facility]) [address] [place] [address] Urea nitrogen [Mass/Vol] 23 mg/dL Normal 7-25 [facility] Comment on above: Performed By: #### L [id number] #### [facility] ([facility]) [address] [place] [address] UREA NITROGEN/CREATININE (MASS RATIO) IN SER/PLAS 23.5 Normal [facility] Comment on above: Performed By: #### L [id number] #### [facility] ([facility]) [address] [place] [address] CBC WITH AUTO DIFFERENTIALon 07-09-2023 Basophils (Bld) [#/Vol] 0.03 10*3/uL Normal 0.00-0.20 [facility] Comment on above: Performed By: #### L [id number] #### [facility] ([facility]) [address] [place] [address] Basophils/100 WBC (Bld) 0.3 % Normal 0.0-1.0 [facility] Comment on above: Performed By: #### L [id number] #### [facility] (BEAKER) [address] [place] [address] Eosinophils (Bld) [#/Vol] 0.54 10*3/uL High 0.00-0.50 [facility] Comment on above: Performed By: #### L [id number] #### [facility] ([facility]) [address] [place] [address] Eosinophils/100 WBC (Bld) 4.9 % Normal 0.0-6.0 [facility] Comment on above: Performed By: #### L [id number] #### [facility] ([facility]) [address] [place] [address] Erythrocyte distribution width (RBC) [Ratio] 15.0 % Normal 11.5-15.0 [facility] Comment on above: Performed By: #### L [id number] #### [facility] ([facility]) [address] [place] [address] ERYTHROCYTE MEAN CORPUSCULAR HEMOGLOBIN CONCENTRATION (G/DL) BY AUTOMATED 32.8 g/dL Normal 32.0-35.0 [facility] Comment on above: Performed By: #### L [id number] #### [facility] (BEAKER) [address] [place] [address] Hematocrit (Bld) [Volume fraction] 37.5 % Normal 36.0-48.0 [facility] Comment on above: Performed By: #### L [id number] #### [facility] (BEAKER) [address] [place] [address] Hemoglobin (Bld) [Mass/Vol] 12.3 g/dL Normal 12.0-15.0 [facility] Comment on above: Performed By: #### L [id number] #### [facility] (BEAKER) [address] [place] [address] Immature granulocytes (Bld) [#/Vol] 0.03 10*3/uL Normal 0.00-0.20 [facility] Comment on above: Performed By: #### L [id number] #### [facility] ([facility]) [address] [place] [address] Immature granulocytes/100 WBC (Bld) 0.3 % Normal 0.0-1.0 [facility] Comment on above: Performed By: #### L [id number] #### [facility] ([facility]) [address] [place] [address] Lymphocytes (Bld) [#/Vol] 3.76 10*3/uL Normal 1.20-4.00 [facility] Comment on above: Performed By: #### L [id number] #### [facility] ([facility]) [address] [place] [address] Lymphocytes/100 WBC (Bld) 34.1 % Normal 20.0-45.0 [facility] Comment on above: Performed By: #### L [id number] #### [facility] ([facility]) [address] [place] [address] MCH (RBC) [Entitic mass] 28.5 pg Normal 27.0-33.0 [facility] Comment on above: Performed By: #### L [id number] #### [facility] ([facility]) [address] [place] [address] MCV (RBC) [Entitic vol] 87.0 fL Normal 82.0-98.0 [facility] Comment on above: Performed By: #### L [id number] #### [facility] ([facility] [address] [place] [address] Monocytes (Bld) [#/Vol] 0.64 10*3/uL Normal 0.10-1.00 [facility] Comment on above: Performed By: #### L [id number] #### [facility] (BEAKER) [address] [place] [address] Monocytes/100 WBC (Bld) 5.8 % Normal 5.0-12.0 [facility] Comment on above: Performed By: #### L [id number] #### [facility] ([facility]) [address] [place] [address] Neutrophils (Bld) [#/Vol] 6.03 10*3/uL Normal 1.60-7.60 [facility] Comment on above: Performed By: #### L [id number] #### [facility] ([facility]) [address] [place] [address] Neutrophils/100 WBC (Bld) 54.6 % Normal 40.0-72.0 [facility] Comment on above: Performed By: #### L [id number] #### [facility] ([facility]) [address] [place] [address] NRBC (PER 100 WBCS) BY AUTOMATED COUNT 0.0 % Normal 0 [facility] Comment on above: Performed By: #### L [id number] #### [facility] ([facility]) [address] [place] [address] PLATELETS (10*3/UL) IN BLOOD AUTOMATED COUNT 285 10*3/uL Normal 150-400 [facility] Comment on above: Performed By: #### L [id number] #### [facility] ([facility]) [address] [place] [address] RBC (Bld) [#/Vol] 4.31 10*6/uL Normal 3.80-5.00 [facility] Comment on above: Performed By: #### L [id number] #### [facility] ([facility]) [address] [place] [address] WBC (Bld) [#/Vol] 11.03 10*3/uL High 4.00-10.60 [facility] Comment on above: Performed By: #### L [id number] #### [facility] ([facility]) [address] [place] [address] 30on 07-08-2023 30 The patient is Moderately Stable - Low risk of patient condition declining or worsening The patient's goals for the shift include comfort The clinical goals for the shift include stable bp Problem: Skin/Tissue Integrity - Adult Goal: Skin integrity remains intact Outcome: Progressing Problem: Gastrointestinal - Adult Goal: Minimal or absence of nausea and vomiting Outcome: Progressing Goal: Maintains adequate nutritional intake Outcome: Progressing Normal [facility] 30 Problem: Cardiovascular - Adult Goal: Maintains optimal cardiac output and hemodynamic stability Outcome: Progressing Flowsheets (Taken 07/08/2023801) Maintains optimal cardiac output and hemodynamic stability: Monitor blood pressure and heart rate Monitor urine output and notify Licensed Independent Practitioner for values outside of normal range Assess for signs of decreased cardiac output Goal: Absence of cardiac dysrhythmias or at baseline Outcome: Progressing Flowsheets (Taken 07/08/2023801) Absence of cardiac dysrhythmias or at baseline: Monitor cardiac rate and rhythm Assess for signs of decreased cardiac output Administer antiarrhythmia medication and electrolyte replacement as ordered Problem: Skin/Tissue Integrity - Adult Goal: Skin integrity remains intact Outcome: Progressing Flowsheets (Taken 07/08/2023801) Skin integrity remains intact: Monitor for areas of redness and/or skin breakdown Change oxygen saturation probe site as needed Goal: Incisions, wounds, or drain sites healing without S/S of infection Outcome: Progressing Flowsheets (Taken 07/08/2023801) Incisions, wounds, or drain sites healing without sign and symptoms of infection: ADMISSION and DAILY: Assess and document risk factors for pressure ulcer development TWICE DAILY: Assess and document skin integrity TWICE DAILY: Assess and document dressing/incision, wound bed, drain sites and surrounding tissue Goal: Oral mucous membranes remain intact Outcome: Progressing Flowsheets (Taken 07/08/2023801) Oral mucous membranes remain intact: Assess oral mucosa and hygiene practices Implement preventative oral hygiene regimen Implement oral medicated treatments as ordered Problem: Gastrointestinal - Adult Goal: Minimal or absence of nausea and vomiting Outcome: Progressing Flowsheets (Taken 07/08/2023801) Minimal or absence of nausea and vomiting: Provide nonpharmacologic comfort measures as appropriate Administer ordered antiemetic medications as needed Goal: Maintains or returns to baseline bowel function Outcome: Progressing Flowsheets (Taken 07/08/2023801) Maintains or returns to baseline bowel function: Assess bowel function Encourage oral fluids to ensure adequate hydration Goal: Maintains adequate nutritional intake Outcome: Progressing Flowsheets (Taken 07/08/2023801) Maintains adequate nutritional intake: Monitor percentage of each meal consumed Identify factors contributing to decreased intake, treat as appropriate Goal: Establish and maintain optimal ostomy function Outcome: Progressing Problem: Metabolic/Fluid and Electrolytes - Adult Goal: Electrolytes maintained within normal limits Outcome: Progressing Flowsheets (Taken 07/08/2023801) Electrolytes maintained within normal limits: Monitor labs and assess patient for signs and symptoms of electrolyte imbalances Administer electrolyte replacement as ordered Monitor response to electrolyte replacements, including repeat lab results as appropriate Goal: Hemodynamic stability and optimal renal function maintained Outcome: Progressing Flowsheets (Taken 07/08/2023801) Hemodynamic stability and optimal renal function maintained: Monitor labs and assess for signs and symptoms of volume excess or deficit Monitor intake, output and patient weight Monitor urine specific gravity, serum osmolarity and serum sodium as indicated or ordered Goal: Glucose maintained within prescribed range Outcome: Progressing Flowsheets (Taken 07/08/2023801) Glucose maintained within prescribed range: Monitor blood glucose as ordered Assess for signs and symptoms of hyperglycemia and hypoglycemia Administer ordered medications to maintain glucose within target range The patient is Moderately Stable - Low risk of patient condition declining or worsening The patient's goals for the shift include comfort The clinical goals for the shift include stable bp Normal [facility] BASIC METABOLIC PANELon 06-15 Anion gap [Moles/Vol] 10 mmol/L Normal 7-20 [facility] Comment on above: Performed By: #### L [id number] ####[facility] (AKER)[address] [place] [address] Calcium [Mass/Vol] 9.0 mg/dL Normal 8.6-10.3 [facility] Comment on above: Performed By: #### L [id number] ####[facility] ([facility] [place] [address] Chloride [Moles/Vol] 97 mmol/L Low 98-107 [facility] Comment on above: Performed By: #### L [id number] ####[facility] (BEAKER)[address] [place] [address] CO2 [Moles/Vol] 33 mmol/L High 21-31 [facility] Comment on above: Performed By: #### L [id number] ####[facility] (BEAKER)[address] [place] [address] Creatinine [Mass/Vol] 1.30 mg/dL High 0.60-1.20 [facility] Comment on above: Performed By: #### L [id number] ####[facility] ([facility])[address] [place] [address] GLOMERULAR FILTRATION RATE ML/MIN/1.73 SQ M.PREDICTED 46.5 mL/min/1.73m*2 Low >60.0 [facility] Comment on above: Result Comment: The [facility]???s estimated glomerular filtration rate (eGFR) will no longer include consideration of race in its calculation. The National Kidney Foundation???s eGFR Task Force developed new recommendations for the estimation of the glomerular filtration rate in the [place] They recommend immediate implementation of the new equation refit without the race variable in all laboratories because the calculation does not include race. In addition to not including race in the calculation and reporting, it included diversity in its development, and has acceptable performance characteristics and potential consequences that do not disproportionately affect any one group of individuals. Performed By: #### L [id number] ####[facility] ([facility])[address] [place] [address] Glucose [Mass/Vol] 214 mg/dL High 70-100 [facility] Comment on above: Performed By: #### L [id number] ####[facility] ([facility])[address] [place] [address] Potassium [Moles/Vol] 3.9 mmol/L Normal 3.5-5.1 [facility] Comment on above: Performed By: #### L [id number] ####[facility] ([facility])[address] [place] [address] Sodium [Moles/Vol] 136 mmol/L Normal 136-145 [facility] Comment on above: Performed By: #### L [id number] ####[facility] ([facility])[address] [place] [address] Urea nitrogen [Mass/Vol] 26 mg/dL High 7-25 [facility] Comment on above: Performed By: #### L [id number] ####[facility] ([facility])[address] [place] [address] UREA NITROGEN/CREATININE (MASS RATIO) IN SER/PLAS 20.0 Normal [facility] Comment on above: Performed By: #### L [id number] ####[facility] ([facility])[address] [place] [address] CBC WITH AUTO DIFFERENTIALon 07-08-2023 Basophils (Bld) [#/Vol] 0.04 10*3/uL Normal 0.00-0.20 [facility] Comment on above: Performed By: #### L [id number] #### [facility] ([facility]) [address] [place] [address] Basophils/100 WBC (Bld) 0.3 % Normal 0.0-1.0 [facility] Comment on above: Performed By: #### L [id number] #### [facility] ([facility]) [address] [place] [address] Eosinophils (Bld) [#/Vol] 0.51 10*3/uL High 0.00-0.50 [facility] Comment on above: Performed By: #### L [id number] #### [facility] ([facility]) [address] [place] [address] Eosinophils/100 WBC (Bld) 4.1 % Normal 0.0-6.0 [facility] Comment on above: Performed By: #### L [id number] #### [facility] ([facility]) [address] [place] [address] Erythrocyte distribution width (RBC) [Ratio] 15.0 % Normal 11.5-15.0 [facility] Comment on above: Performed By: #### L [id number] #### [facility] ([facility]) [address] [place] [address] ERYTHROCYTE MEAN CORPUSCULAR HEMOGLOBIN CONCENTRATION (G/DL) BY AUTOMATED 31.9 g/dL Low 32.0-35.0 [facility] Comment on above: Performed By: #### L [id number] #### [facility] (BEAKER) [address] [place] [address] Hematocrit (Bld) [Volume fraction] 37.9 % Normal 36.0-48.0 [facility] Comment on above: Performed By: #### L [id number] #### [facility] (BEAKER) [address] [place] [address] Hemoglobin (Bld) [Mass/Vol] 12.1 g/dL Normal 12.0-15.0 [facility] Comment on above: Performed By: #### L [id number] #### [facility] (BEAKER) [address] [place] [address] Immature granulocytes (Bld) [#/Vol] 0.04 10*3/uL Normal 0.00-0.20 [facility] Comment on above: Performed By: #### L [id number] #### [facility] ([facility] [address] [place] [address] Immature granulocytes/100 WBC (Bld) 0.3 % Normal 0.0-1.0 [facility] Comment on above: Performed By: #### L [id number] #### [facility] (BEAKER) [address] [place] [address] Lymphocytes (Bld) [#/Vol] 4.00 10*3/uL Normal 1.20-4.00 [facility] Comment on above: Performed By: #### L [id number] #### [facility] (BEAKER) [address] [place] [address] Lymphocytes/100 WBC (Bld) 32.1 % Normal 20.0-45.0 [facility] Comment on above: Performed By: #### L [id number] #### [facility] (BEAKER) [address] [place] [address] MCH (RBC) [Entitic mass] 28.1 pg Normal 27.0-33.0 [facility] Comment on above: Performed By: #### L [id number] #### [facility] (BEAKER) [address] [place] [address] MCV (RBC) [Entitic vol] 87.9 fL Normal 82.0-98.0 [facility] Comment on above: Performed By: #### L [id number] #### [facility] ([facility] [address] [place] [address] Monocytes (Bld) [#/Vol] 0.85 10*3/uL Normal 0.10-1.00 [facility] Comment on above: Performed By: #### L [id number] #### [facility] ([facility]) [address] [place] [address] Monocytes/100 WBC (Bld) 6.8 % Normal 5.0-12.0 [facility] Comment on above: Performed By: #### L [id number] #### [facility] ([facility]) [address] [place] [address] Neutrophils (Bld) [#/Vol] 7.02 10*3/uL Normal 1.60-7.60 [facility] Comment on above: Performed By: #### L [id number] #### [facility] ([facility]) [address] [place] [address] Neutrophils/100 WBC (Bld) 56.4 % Normal 40.0-72.0 [facility] Comment on above: Performed By: #### L [id number] #### [facility] ([facility]) [address] [place] [address] NRBC (PER 100 WBCS) BY AUTOMATED COUNT 0.0 % Normal 0 [facility] Comment on above: Performed By: #### L [id number] #### [facility] ([facility]) [address] [place] [address] PLATELETS (10*3/UL) IN BLOOD AUTOMATED COUNT 301 10*3/uL Normal 150-400 [facility] Comment on above: Performed By: #### L [id number] #### [facility] ([facility] [address] [place] [address] RBC (Bld) [#/Vol] 4.31 10*6/uL Normal 3.80-5.00 [facility] Comment on above: Performed By: #### L [id number] #### [facility] (BEAKER) [address] [place] [address] WBC (Bld) [#/Vol] 12.46 10*3/uL High 4.00-10.60 [facility] Comment on above: Performed By: #### L [id number] #### [facility] (BEAKER) [address] [place] [address] 30on 07-07-2023 30 The patient is Moderately Stable - Low risk of patient condition declining or worsening The patient's goals for the shift include comfort The clinical goals for the shift include vss Normal [facility] 30 Problem: Cardiovascular - Adult Goal: Maintains optimal cardiac output and hemodynamic stability Outcome: Progressing Flowsheets (Taken 07/07/2023838) Maintains optimal cardiac output and hemodynamic stability: Monitor blood pressure and heart rate Assess for signs of decreased cardiac output Administer vasoactive medications as ordered Monitor urine output and notify Licensed Independent Practitioner for values outside of normal range Administer fluid and/or volume expanders as ordered Goal: Absence of cardiac dysrhythmias or at baseline Outcome: Progressing Flowsheets (Taken 07/07/2023838) Absence of cardiac dysrhythmias or at baseline: Monitor cardiac rate and rhythm Assess for signs of decreased cardiac output Administer antiarrhythmia medication and electrolyte replacement as ordered Problem: Skin/Tissue Integrity - Adult Goal: Skin integrity remains intact Outcome: Progressing Flowsheets (Taken 07/07/2023838) Skin integrity remains intact: Monitor for areas of redness and/or skin breakdown Assess vascular access sites hourly Change oxygen saturation probe site as needed If on nasal continuous positive airway pressure, respiratory therapy assesses nares and determine need for appliance change or resting period as needed Goal: Incisions, wounds, or drain sites healing without S/S of infection Outcome: Progressing Flowsheets (Taken 07/07/2023838) Incisions, wounds, or drain sites healing without sign and symptoms of infection: ADMISSION and DAILY: Assess and document risk factors for pressure ulcer development TWICE DAILY: Assess and document skin integrity TWICE DAILY: Assess and document dressing/incision, wound bed, drain sites and surrounding tissue Goal: Oral mucous membranes remain intact Outcome: Progressing Flowsheets (Taken 07/07/2023838) Oral mucous membranes remain intact: Assess oral mucosa and hygiene practices Implement oral medicated treatments as ordered Implement preventative oral hygiene regimen Problem: Gastrointestinal - Adult Goal: Minimal or absence of nausea and vomiting Outcome: Progressing Flowsheets (Taken 07/07/2023838) Minimal or absence of nausea and vomiting: Administer ordered antiemetic medications as needed Advance diet as tolerated, if ordered Nutrition consult to assist patient with adequate nutrition and appropriate food choices Provide nonpharmacologic comfort measures as appropriate Goal: Maintains or returns to baseline bowel function Outcome: Progressing Flowsheets (Taken 07/07/2023838) Maintains or returns to baseline bowel function: Assess bowel function Encourage oral fluids to ensure adequate hydration Administer ordered medications as needed Encourage mobilization and activity Nutrition consult to assist patient with appropriate food choices Goal: Maintains adequate nutritional intake Outcome: Progressing Flowsheets (Taken 07/07/2023838) Maintains adequate nutritional intake: Monitor percentage of each meal consumed Assist with meals as needed Identify factors contributing to decreased intake, treat as appropriate Monitor intake and output, weight and lab values Obtain nutritional consult as needed Goal: Establish and maintain optimal ostomy function Outcome: Progressing Problem: Metabolic/Fluid and Electrolytes - Adult Goal: Electrolytes maintained within normal limits Outcome: Progressing Flowsheets (Taken 07/07/2023838) Electrolytes maintained within normal limits: Monitor labs and assess patient for signs and symptoms of electrolyte imbalances Administer electrolyte replacement as ordered Monitor response to electrolyte replacements, including repeat lab results as appropriate Fluid restriction as ordered Instruct patient on fluid and nutrition restrictions as appropriate Goal: Hemodynamic stability and optimal renal function maintained Outcome: Progressing Flowsheets (Taken 07/07/2023838) Hemodynamic stability and optimal renal function maintained: Monitor labs and assess for signs and symptoms of volume excess or deficit Monitor intake, output and patient weight Monitor urine specific gravity, serum osmolarity and serum sodium as indicated or ordered Goal: Glucose maintained within prescribed range Outcome: Progressing Flowsheets (Taken 07/07/2023838) Glucose maintained within prescribed range: Monitor blood glucose as ordered Assess for signs and symptoms of hyperglycemia and hypoglycemia Administer ordered medications to maintain glucose within target range Assess barriers to adequate nutritional intake and initiate nutrition consult as needed Instruct patient on self management of diabetes and initiate consult as needed Problem: Pain - Adult Goal: Verbalizes/displays adequate comfort level or baseline comfort level Recent Flowsheet Documentation Taken 07/07/2023799 by Emerald Curtis RN Verbalizes/displays adequate comfort lev (more content not included)... Normal [facility] BASIC METABOLIC PANELon 02- Anion gap [Moles/Vol] 12 mmol/L Normal 7-20 [facility] Comment on above: Performed By: #### L [id number] #### [facility] ([facility]) [address] [place] [address] Calcium [Mass/Vol] 9.2 mg/dL Normal 8.6-10.3 [facility] Comment on above: Performed By: #### L [id number] #### [facility] ([facility]) [address] [place] [address] Chloride [Moles/Vol] 97 mmol/L Low 98-107 [facility] Comment on above: Performed By: #### L [id number] #### [facility] ([facility]) [address] [place] [address] CO2 [Moles/Vol] 31 mmol/L Normal 21-31 [facility] Comment on above: Performed By: #### L [id number] #### [facility] ([facility]) [address] [place] [address] Creatinine [Mass/Vol] 1.06 mg/dL Normal 0.60-1.20 [facility] Comment on above: Performed By: #### L [id number] #### [facility] ([facility]) [address] [place] [address] GLOMERULAR FILTRATION RATE ML/MIN/1.73 SQ M.PREDICTED 59.4 mL/min/1.73m*2 Low >60.0 [facility] Comment on above: Result Comment: The [facility]???s estimated glomerular filtration rate (eGFR) will no longer include consideration of race in its calculation. The National Kidney Foundation???s eGFR Task Force developed new recommendations for the estimation of the glomerular filtration rate in the [place] They recommend immediate implementation of the new equation refit without the race variable in all laboratories because the calculation does not include race. In addition to not including race in the calculation and reporting, it included diversity in its development, and has acceptable performance characteristics and potential consequences that do not disproportionately affect any one group of individuals. Performed By: #### L [id number] #### [facility] ([facility]) [address] [place] [address] Glucose [Mass/Vol] 119 mg/dL High 70-100 [facility] Comment on above: Performed By: #### L [id number] #### [facility] ([facility]) [address] [place] [address] Potassium [Moles/Vol] 4.6 mmol/L Normal 3.5-5.1 [facility] Comment on above: Performed By: #### L [id number] #### [facility] ([facility]) [address] [place] [address] Sodium [Moles/Vol] 135 mmol/L Low 136-145 [facility] Comment on above: Performed By: #### L [id number] #### [facility] ([facility]) [address] [place] [address] Urea nitrogen [Mass/Vol] 21 mg/dL Normal 7-25 [facility] Comment on above: Performed By: #### L [id number] #### [facility] ([facility]) [address] [place] [address] UREA NITROGEN/CREATININE (MASS RATIO) IN SER/PLAS 19.8 Normal [facility] Comment on above: Performed By: #### L [id number] #### [facility] ([facility]) [address] [place] [address] CBC WITH AUTO DIFFERENTIALon 07-07-2023 Basophils (Bld) [#/Vol] 0.05 10*3/uL Normal 0.00-0.20 [facility] Comment on above: Performed By: #### L [id number] #### [facility] ([facility]) [address] [place] [address] Basophils/100 WBC (Bld) 0.3 % Normal 0.0-1.0 [facility] Comment on above: Performed By: #### L [id number] #### [facility] ([facility] [address] [place] [address] Eosinophils (Bld) [#/Vol] 0.38 10*3/uL Normal 0.00-0.50 [facility] Comment on above: Performed By: #### L [id number] #### [facility] ([facility]) [address] [place] [address] Eosinophils/100 WBC (Bld) 2.5 % Normal 0.0-6.0 [facility] Comment on above: Performed By: #### L [id number] #### [facility] ([facility]) [address] [place] [address] Erythrocyte distribution width (RBC) [Ratio] 15.5 % High 11.5-15.0 [facility] Comment on above: Performed By: #### L [id number] #### [facility] ([facility]) [address] [place] [address] ERYTHROCYTE MEAN CORPUSCULAR HEMOGLOBIN CONCENTRATION (G/DL) BY AUTOMATED 32.0 g/dL Normal 32.0-35.0 [facility] Comment on above: Performed By: #### L [id number] #### [facility] ([facility]) [address] [place] [address] Hematocrit (Bld) [Volume fraction] 38.8 % Normal 36.0-48.0 [facility] Comment on above: Performed By: #### L [id number] #### [facility] ([facility]) [address] [place] [address] Hemoglobin (Bld) [Mass/Vol] 12.4 g/dL Normal 12.0-15.0 [facility] Comment on above: Performed By: #### L [id number] #### [facility] ([facility] [address] [facility] [place] [address] Immature granulocytes (Bld) [#/Vol] 0.05 10*3/uL Normal 0.00-0.20 [facility] Comment on above: Performed By: #### L [id number] #### [facility] ([facility]) [address] [place] [address] Immature granulocytes/100 WBC (Bld) 0.3 % Normal 0.0-1.0 [facility] Comment on above: Performed By: #### L [id number] #### [facility] ([facility]) [address] [place] [address] Lymphocytes (Bld) [#/Vol] 3.99 10*3/uL Normal 1.20-4.00 [facility] Comment on above: Performed By: #### L [id number] #### [facility] ([facility]) [address] [place] [address] Lymphocytes/100 WBC (Bld) 26.5 % Normal 20.0-45.0 [facility] Comment on above: Performed By: #### L [id number] #### [facility] ([facility]) [address] [place] [address] MCH (RBC) [Entitic mass] 27.9 pg Normal 27.0-33.0 [facility] Comment on above: Performed By: #### L [id number] #### [facility] ([facility]) [address] [place] [address] MCV (RBC) [Entitic vol] 87.4 fL Normal 82.0-98.0 [facility] Comment on above: Performed By: #### L [id number] #### [facility] ([facility]) [address] [place] [address] Monocytes (Bld) [#/Vol] 1.25 10*3/uL High 0.10-1.00 [facility] Comment on above: Performed By: #### L [id number] #### [facility] ([facility] [address] [place] [address] Monocytes/100 WBC (Bld) 8.3 % Normal 5.0-12.0 [facility] Comment on above: Performed By: #### L [id number] #### [facility] ([facility] [address] [place] [address] Neutrophils (Bld) [#/Vol] 9.31 10*3/uL High 1.60-7.60 [facility] Comment on above: Performed By: #### L [id number] #### [facility] ([facility]) [address] [address] Neutrophils/100 WBC (Bld) 62.1 % Normal 40.0-72.0 [facility] Comment on above: Performed By: #### L [id number] #### [facility] ([facility]) [address] [place] [address] NRBC (PER 100 WBCS) BY AUTOMATED COUNT 0.0 % Normal 0 [facility] Comment on above: Performed By: #### L [id number] #### [facility] ([facility]) [address] [place] [address] PLATELETS (10*3/UL) IN BLOOD AUTOMATED COUNT 300 10*3/uL Normal 150-400 [facility] Comment on above: Performed By: #### L [id number] #### [facility] ([facility]) [address] [place] [address] RBC (Bld) [#/Vol] 4.44 10*6/uL Normal 3.80-5.00 [facility] Comment on above: Performed By: #### L [id number] #### [facility] ([facility]) [address] [place] [address] WBC (Bld) [#/Vol] 15.03 10*3/uL High 4.00-10.60 [facility] Comment on above: Performed By: #### L [id number] #### [facility] ([facility]) [address] [place] [address] MAGNESIUMon 07-07-2023 Magnesium [Mass/Vol] 2.3 mg/dL Normal 1.9-2.7 [facility] Comment on above: Performed By: #### L [id number] #### [facility] ([facility]) [address] [place] [address] 30on 07-06-2023 30 Daily Case Managemen t Update Multidisciplinary rounds have been completed. Barriers to Discharge: Pending clinical course and improvement in clinical condition. Electrophysiology for evaluation regarding pacemaker placement. Diet: Dietary Orders (From admission, onward) Start Ordered 07/06/23 0933 Regular Diet Heart Healthy/HTN, CABG,Stroke, (2gNA, low fat, low cholesterol) Diet effective now Question Answer Comment Room Service? Yes Fat restriction: Heart Healthy/HTN, CABG,Stroke, (2gNA, low fat, low cholesterol) 07/06/23 0932 Physician Expected Discharge Date: 07/09/2023 Discharge Delays: PT Six Click Score: 24 OT Six Click Score: PT Recommendations: OT Recommendations: New Consults: Consult Orders (From admission, onward) Start Ordered 07/06/23 1051 Inpatient consult to Electrophysiology Once Specialty: Electrophysiology Provider: (Not yet assigned) Question Answer Comment Consulting Group ELECTROPHYSIOLOGY TEAM Reason for Consult? junctioal Level of Consultation Consultation and Management 07/06/23 1050 [facility] 30 The patient is Moderately Stable - Low risk of patient condition declining or worsening The patient's goals for the shift include comfort The clinical goals for the shift include hemodynamically stable Problem: Pain - Adult Goal: Verbalizes/displays adequate comfort level or baseline comfort level Outcome: Progressing Problem: Safety - Adult Goal: Free from fall injury Outcome: Progressing Flowsheets (Taken 07/06/2023 0800) Free from fall injury: Modify environment to reduce risk of injury Assess patient frequently for physical needs Identify cognitive and physical deficits and behaviors that affect risk of falls Problem: Discharge Planning Goal: Discharge to home or other facility with appropriate resources Outcome: Progressing Problem: Chronic Conditions and Co-morbidities Goal: Patient's chronic conditions and co-morbidity symptoms are monitored and maintained or improved Outcome: Progressing [facility] 30 The patient is Moderately Stable - Low risk of patient condition declining or worsening The patient's goals for the shift include comfort The clinical goals for the shift include VSS [facility] 30 The patient is Moderately Stable - Low risk of patient condition declining or worsening The patient's goals for the shift include comfort The clinical goals for the shift include VSS [facility] APTTon 07-06-2023 ACTIVATED PARTIAL THROMBOPLASTIN TIME IN PPP BY COAGULATION ASSAY 25.3 Seconds Normal 25.0-35.0 [facility] Comment on above: Result Comment: Clin ical significance of the APTT is questionable in the presence of heparin. Performed By: #### L [id number] #### [facility] ([facility]) [address] [place] [address] B-TYPE NATRIURETIC PEPTIDEon 07-06-2023 Natriuretic peptide B (Bld) [Mass/Vol] 721 pg/mL High 0-100 [facility] Comment on above: Performed By: #### L [id number] #### [facility] ([facility]) [address] [facility] [place] [address] BLOOD CULTUREon 07-06-2023 Bacteria identified Cx Nom (Bld) No growth at 5 days Normal [facility] Comment on above: Performed By: #### L [id number] ####[facility] ([facility])[address] [place] [address] Order Comment: From a different site than #1. Performed By: #### L [id number] #### [facility] ([facility]) [address] [place] [address] CBC WITH AUTO DIFFERENTIALon 07-06-2023 Basophils (Bld) [#/Vol] 0.03 10*3/uL Normal 0.00-0.20 [facility] Comment on above: Performed By: #### L [id number] ####[facility] ([facility])[address] [place] [address] Basophils/100 WBC (Bld) 0.2 % Normal 0.0-1.0 [facility] Comment on above: Performed By: #### L [id number] ####[facility] ([facility])[address] [place] [address] Eosinophils (Bld) [#/Vol] 0.11 10*3/uL Normal 0.00-0.50 [facility] Comment on above: Performed By: #### L [id number] ####[facility] ([facility])[address] [place] [address] Eosinophils/100 WBC (Bld) 0.8 % Normal 0.0-6.0 [facility] Comment on above: Performed By: #### L [id number] ####[facility] ([facility])[address] [place] [address] Erythrocyte distribution width (RBC) [Ratio] 15.1 % High 11.5-15.0 [facility] Comment on above: Performed By: #### L [id number] ####[facility] ([facility])[address] [place] [address] ERYTHROCYTE MEAN CORPUSCULAR HEMOGLOBIN CONCENTRATION (G/DL) BY AUTOMATED 32.3 g/dL Normal 32.0-35.0 [facility] Comment on above: Performed By: #### L [id number] ####[facility] ([facility])[address] [place] [address] Hematocrit (Bld) [Volume fraction] 39.0 % Normal 36.0-48.0 [facility] Comment on above: Performed By: #### L [id number] ####[facility] ([facility])[address] [place] [address] Hemoglobin (Bld) [Mass/Vol] 12.6 g/dL Normal 12.0-15.0 [facility] Comment on above: Performed By: #### L [id number] ####[facility] ([facility])[address] [place] [address] Immature granulocytes (Bld) [#/Vol] 0.04 10*3/uL Normal 0.00-0.20 [facility] Comment on above: Performed By: #### L [id number] ####[facility] ([facility])[address] [place] [address] Immature granulocytes/100 WBC (Bld) 0.3 % Normal 0.0-1.0 [facility] Comment on above: Performed By: #### L [id number] ####[facility] ([facility])[address] [place] [address] Lymphocytes (Bld) [#/Vol] 2.75 10*3/uL Normal 1.20-4.00 [facility] Comment on above: Performed By: #### L [id number] ####[facility] ([facility])[address] [place] [address] Lymphocytes/100 WBC (Bld) 19.1 % Low 20.0-45.0 [facility] Comment on above: Performed By: #### L [id number] ####[facility] ([facility])[address] [place] [address] MCH (RBC) [Entitic mass] 27.9 pg Normal 27.0-33.0 [facility] Comment on above: Performed By: #### L [id number] ####[facility] ([facility])[address] [place] [address] MCV (RBC) [Entitic vol] 86.5 fL Normal 82.0-98.0 [facility] Comment on above: Performed By: #### L [id number] ####[facility] ([facility])[address] [place] [address] Monocytes (Bld) [#/Vol] 1.31 10*3/uL High 0.10-1.00 [facility] Comment on above: Performed By: #### L [id number] ####[facility] ([facility])[address] [place] [address] Monocytes/100 WBC (Bld) 9.1 % Normal 5.0-12.0 [facility] Comment on above: Performed By: #### L [id number] ####[facility] ([facility])[address] [place] [address] Neutrophils (Bld) [#/Vol] 10.18 10*3/uL High 1.60-7.60 [facility] Comment on above: Performed By: #### L [id number] ####[facility] ([facility])[address] [place] [address] Neutrophils/100 WBC (Bld) 70.5 % Normal 40.0-72.0 [facility] Comment on above: Performed By: #### L [id number] ####[facility] ([facility] [place] [address] NRBC (PER 100 WBCS) BY AUTOMATED COUNT 0.0 % Normal 0 [facility] Comment on above: Performed By: #### L [id number] ####[facility] ([facility])[address] [place] [address] PLATELETS (10*3/UL) IN BLOOD AUTOMATED COUNT 321 10*3/uL Normal 150-400 [facility] Comment on above: Performed By: #### L [id number] ####[facility] ([facility])[address] [place] [address] RBC (Bld) [#/Vol] 4.51 10*6/uL Normal 3.80-5.00 [facility] Comment on above: Performed By: #### L [id number] ####[facility] ([facility])[address] [place] [address] WBC (Bld) [#/Vol] 14.42 10*3/uL High 4.00-10.60 [facility] Comment on above: Performed By: #### L [id number] ####[facility] ([facility])[address] [place] [address] CKon 07-06-2023 CREATINE KINASE (U/L) IN SER/PLAS 36.0 U/L Normal 30.0-223.0 [facility] Comment on above: Performed By: #### L [id number] #### [facility] ([facility] [address] [place] [address] COMPREHENSIVE METABOLIC PANE Pollo 07-06-2023 Albumin [Mass/Vol] 4.6 g/dL Normal 3.5-5.7 [facility] Comment on above: Performed By: #### L [id number] #### [facility] ([facility]) [address] [place] [address] ALP [Catalytic activity/Vol] 47 U/L Normal 34-104 [facility] Comment on above: Performed By: #### L [id number] #### [facility] ([facility]) [address] [place] [address] ALT [Catalytic activity/Vol] 13 U/L Normal 7-52 [facility] Comment on above: Performed By: #### L [id number] #### [facility] ([facility]) [address] [place] [address] Anion gap [Moles/Vol] 14 mmol/L Normal 7-20 [facility] Comment on above: Performed By: #### L [id number] #### [facility] ([facility]) [address] [place] [address] AST [Catalytic activity/Vol] 17 U/L Normal 13-39 [facility] Comment on above: Performed By: #### L [id number] #### [facility] ([facility] [address] [place] [address] Bilirubin [Mass/Vol] 0.5 mg/dL Normal 0.3-1.0 [facility] Comment on above: Performed By: #### L [id number] #### [facility] ([facility]) [address] [place] [address] Calcium [Mass/Vol] 8.9 mg/dL Normal 8.6-10.3 [facility] Comment on above: Performed By: #### L [id number] #### [facility] ([facility]) [address] [place] [address] Chloride [Moles/Vol] 98 mmol/L Normal 98-107 [facility] Comment on above: Performed By: #### L [id number] #### [facility] ([facility]) [address] [place] [address] CO2 [Moles/Vol] 28 mmol/L Normal 21-31 [facility] Comment on above: Performed By: #### L [id number] #### [facility] ([facility]) [address] [place] [address] Creatinine [Mass/Vol] 1.23 mg/dL High 0.60-1.20 [facility] Comment on above: Performed By: #### L [id number] #### [facility] ([facility]) [address] [place] [address] GLOMERULAR FILTRATION RATE ML/MIN/1.73 SQ M.PREDICTED 49.7 mL/min/1.73m*2 Low >60.0 [facility] Comment on above: Result Comment: The [facility]???s estimated glomerular filtration rate (eGFR) will no longer include consideration of race in its calculation. The National Kidney Foundation???s eGFR Task Force developed new recommendations for the estimation of the glomerular filtration rate in the [place] They recommend immediate implementation of the new equation refit without the race variable in all laboratories because the calculation does not include race. In addition to not including race in the calculation and reporting, it included diversity in its development, and has acceptable performance characteristics and potential consequences that do not disproportionately affect any one group of individuals. Performed By: #### L [id number] #### [facility] ([facility]) [address] [place] [address] Glucose [Mass/Vol] 119 mg/dL High 70-100 [facility] Comment on above: Performed By: #### L [id number] #### [facility] ([facility]) [address] [place] [address] Potassium [Moles/Vol] 4.6 mmol/L Normal 3.5-5.1 [facility] Comment on above: Performed By: #### L [id number] #### [facility] ([facility]) [address] [place] [address] Protein [Mass/Vol] 6.8 g/dL Normal 6.0-8.3 [facility] Comment on above: Performed By: #### L [id number] #### [facility] ([facility]) [address] [place] [address] Sodium [Moles/Vol] 135 mmol/L Low 136-145 [facility] Comment on above: Performed By: #### L [id number] #### [facility] (BEAKER) [address] [place] [address] Urea nitrogen [Mass/Vol] 23 mg/dL Normal 7-25 [facility] Comment on above: Performed By: #### L [id number] #### [facility] (BEAKER) [address] [place] [address] UREA NITROGEN/CREATININE (MASS RATIO) IN SER/PLAS 18.7 Normal [facility] Comment on above: Performed By: #### L [id number] #### [facility] (BEAKER) [address] [place] [address] CONSULTon 07-06-2023 CONSULT - Attestation signed by Merritt Guerrero MD at 07/06/2023 1:21 PM I personally saw and examined the patient on the same date of service as resident/fellow Isabella Knutson. I discussed the findings and therapeutic plan with the resident/fellow Isabella Knutson. I agree with the documentation, except for any edits/updates below. Teaching Physician's Revisions: none Cardiology Consult Note Reason for Consult: Bradycardia, junctional rhythm, consideration for pacemaker placement HPI: Vivian Vann is a 63 y.o. female with PMH of CAD s/p PCI to LAD (October 2021) and repeat LHC and RHC (06/2023- stable CAD and significantly elevated PCWP), HTN, HLD, COPD, tobacco use is as a transfer from outside hospital with complaints of worsening dizziness, retrosternal chest pain and episode of bradycardia. Patient has been transferred to [facility] for consideration of pacemaker placement. As per patient, her heart rate was 18 at the outside hospital, however I could not confirm from any documentation. During the current hospitalization, so far patient's heart rate has been ranging 40-50. EKG performed in the ED showed diffuse T wave inversions with junctional rhythm. Telemetry shows sinus bradycardia as well as some episodes of junctional rhythm. Significant labs included creatinine 1.23, phosphorus 5.2, BNP 721 (improved from 1683-1 week back), and troponin 0.12. Patient is currently not on any supplemental oxygen and her HR is in the 60s. BP is still on the lower side 91/78. Patient was recently discharged earlier this week and had left and right Catheterization done which showed stable CAD but elevated PCWP. Her diet was discontinued and she was maintained only on Plavix. She was not sent home on any beta-blockers or ADRIA inhibitors/ARB's because of low blood pressures. Review of Systems Constitutional: Positive for fatigue. Negative for chills, diaphoresis and fever. HENT: Negative. Eyes: Negative. Respiratory: Negative. Negative for cough and shortness of breath. Cardiovascular: Positive for chest pain (Substernal chest pain, one episode, currently resolved). Negative for palpitations and leg swelling. Gastrointestinal: Negative. Negative for abdominal pain, diarrhea, nausea and vomiting. Endocrine: Negative. Genitourinary: Negative. Negative for decreased urine volume, difficulty urinating and dysuria. Skin: Negative. Allergic/Immunologic: Negative. Neurological: Positive for dizziness and light-headedness. Negative for tremors, syncope, speech difficulty, numbness and headaches. Hematological: Negative. Psychiatric/Behaviora l: Negative. Past Medical History She has no past medical history on file. Surgical History She has no past surgical history on file. Social History She reports that she has been smoking cigarettes. She started smoking about 41 years ago. She has a 41.00 pack-year smoking history. She does not have any smokeless tobacco history on file. She reports current drug use. Drug: Marijuana. No history on file for alcohol use. Family History No family history on file. Allergies Hay fever and allergy relief and House dust Medications Medications Prior to Admission Medication Sig Dispense Refill Last Dose albuterol 90 mcg/actuation inhaler Inhale 2 puffs every 6 (six) hours if needed for wheezing. ALPRAZolam (Xanax) 1 mg tablet Take 1 mg by mouth Twice daily at 6am and 6pm. aspirin 81 mg EC tablet Take 81 mg by mouth in the morning. atorvastatin (Lipitor) 80 mg tablet Take 80 mg by mouth in the morning. busPIRone (Buspar) 10 mg tablet Take 10 mg by mouth in the morning and at bedtime. clopidogrel (Plavix) 75 mg tablet Take 75 mg by mouth in the morning. cyclobenzaprine (Flexeril) 10 mg tablet Take 10 mg by mouth if needed in the morning and at bedtime for muscle spasms. dapagliflozin propanediol (Farxiga) 10 mg Take 10 mg by mouth in the morning. furosemide (Lasix) 40 mg tablet Take 1 tablet (40 mg) by mouth in the morning. 30 tablet 0 gabapentin (Neurontin) 300 mg capsule Take 300 mg by mouth in the morning, at noon, and at bedtime. pantoprazole (ProtoNix) 40 mg EC tablet Take 40 mg by mouth before breakfast. Do not crush, chew, or split. spironolactone (Aldactone) 25 mg tablet Take 1 tablet (25 mg) by mouth in the morning for 30 doses. 30 tablet 0 traZODone (Desyrel) 50 mg tablet Take 50 mg by mouth at bedtime. Last Recorded Vitals Patient Vitals for the past 24 hrs: BP Temp Temp src Pulse Resp SpO2 Weight 07/06/23 0800 99/65 -- -- 57 19 93 % -- 07/06/23 0600 -- -- -- -- -- -- 70.4 kg (155 lb 3.2 oz) 07/06/23 0400 103/65 -- -- 56 16 96 % -- 07/06/23 0300 91/68 -- -- 60 -- 96 % -- 07/06/23 0127 109/80 36.5 ???C (97.7 ???F) Temporal 60 18 96 % -- 07/06/23 0033 -- -- -- -- -- -- 7 (more content not included)... [facility] ED Clinical Summaryon 2023 ED Clinical Summary [place] [id number] ED Clinical Summary Person Information Name: VIVIAN VANN/[place] Age: 63 Years : 1960 Sex: Female Language: Icelandic PCP: Екатерина Robert MD Marital Status: Phone: Visit Id: Visit Reason: Dizziness; Abdominal pain; Vomiting; Nausea; Shortness of breath; Chest pain; CP/SOB, NAUSEA Speciality: Acuity: 2 Enc Type: Emergency Med Service: Emergency Arrival: 07/05/2023 15:01:40 Discharge: 07/05/2023 22:15:54 LOS: 000 07:14 Checkin: 07/05/2023 15:01:40 Checkout: 07/05/2023 22:15:54 Dispo Type: Undefined HC Fac EVENTS: Event Name Event Status Request Date/Time Start Date/Time Complete Date/Time Arrive Complete 07/05/2023 15:01:40 07/05/2023 15:01:40 07/05/2023 15:01:40 Document Home Meds Request 07/05/2023 15:01:40 Triage Complete 07/05/2023 15:01:40 07/05/2023 15:21:35 07/05/2023 15:21:35 Bed Assign Complete 07/05/2023 15:01:40 07/05/2023 15:01:40 07/05/2023 15:01:40 Dr Exam Complete 07/05/2023 15:01:40 07/05/2023 15:06:05 07/05/2023 15:06:05 RN Exam Complete 07/05/2023 15:01:40 07/05/2023 18:47:58 07/05/2023 18:47:58 EKG Complete 07/05/2023 15:02:49 07/05/2023 15:04:25 Registration Complete 07/05/2023 15:06:05 07/05/2023 16:37:33 07/05/2023 16:37:33 Dr Exam Complete 07/05/2023 15:10:02 07/05/2023 15:10:02 07/05/2023 15:10:02 Meds Admin Complete 07/05/2023 15:19:52 07/05/2023 15:28:43 Pending Labs Request 07/05/2023 15:19:52 Lab Request 07/05/2023 15:19:52 Urine Collect Request 07/05/2023 15:19:52 Patient Care Request 07/05/2023 15:19:52 RT Request 07/05/2023 15:19:52 X-Ray Complete 07/05/2023 15:19:52 07/05/2023 15:22:32 07/05/2023 15:36:02 Meds Admin Complete 07/05/2023 15:21:00 07/05/2023 15:28:44 Isolation Screening Request 07/05/2023 15:21:36 Pending Labs Complete 07/05/2023 15:23:16 07/05/2023 15:23:16 07/05/2023 15:59:27 Lab Complete 07/05/2023 15:23:16 07/05/2023 15:23:16 07/05/2023 15:59:27 Pending Labs Cancel 07/05/2023 15:35:19 07/05/2023 15:39:15 Lab Cancel 07/05/2023 15:35:19 07/05/2023 15:39:15 Wet Read Request 07/05/2023 15:36:02 Pending Labs Complete 07/05/2023 15:39:53 07/05/2023 15:39:53 07/05/2023 16:37:39 Lab Complete 07/05/2023 15:39:53 07/05/2023 15:39:53 07/05/2023 16:37:39 Pending Labs Complete 07/05/2023 16:02:41 07/05/2023 16:02:41 07/05/2023 16:02:41 Reg Complete Request 07/05/2023 16:37:33 Reg Bed Request Complete 07/05/2023 16:37:33 07/05/2023 16:37:33 07/05/2023 16:37:33 Patient Care Request 07/05/2023 17:06:49 Transfer Complete 07/05/2023 17:06:49 07/05/2023 22:16:25 07/05/2023 22:16:25 Pending Labs Complete 07/05/2023 18:47:02 07/05/2023 18:47:02 07/05/2023 18:47:03 Meds Admin Complete 07/05/2023 21:32:31 07/05/2023 21:45:47 Discharge Complete 07/05/2023 22:16:25 07/05/2023 22:16:25 07/05/2023 22:16:25 ADDRESS: [facility] [id number] PHYS DOC NOTES: MEDICAL INFORMATION: Prescriptions Given: Medications to Continue with No Changes Other Medications albuterol (albuterol HFA 90 mcg/inh MDI) 2 Puffs Inhalation every 4 hours. albuterol (ProAir HFA 90 mcg/inh inhalation aerosol) 2 Puffs Inhalation every 4 hours as needed for wheezing. Refills: 0. brompheniramine/dextr omethorphan/PSE (Bromfed DM oral syrup) 5 Milliliter By Mouth 4 times a day as needed for cold symptoms. Refills: 0. busPIRone (busPIRone 10 mg Tab) [...] day (at bedtime). PATIENT EDUCATION INFORMATION: Instructions: Follow up: DIAGNOSIS: 1:Atrial fibrillation with slow ventricular response; 2:Elevated troponin; 3:Tobacco abuse; 4:CHF (congestive heart failure) Normal [facility] ED Patient Education Noteon 07-06-2023 ED Patient Education Note Normal [facility] ED Patient Summaryon 024 ED Patient Summary [place] [id number] Patient Discharge Instructions Person Information Name: VIVIAN VANN Age: 63 Years Arrival Date: 07/05/2023 15:01:40 Discharge Diagnosis: 1:Atrial fibrillation with slow ventricular response; 2:Elevated troponin; 3:Tobacco abuse; 4:CHF (congestive heart failure) Primary Care Physician: Екатерина Robert MD Provider Information Primary Provider: Arsenio Martin DO Advanced [employer] Truck Garage Mechanic:None The exam and treatment you received in the Emergency Department were for an urgent problem and are not intended as complete care. It is important that you follow up with a doctor, nurse practitioner, or physician?s greenhouse assistant for ongoing care. If your symptoms become worse or you do not improve as expected and you are unable to reach your usual health care provider, you should return to the Emergency Department. We are available 24 hours a day. VIVIAN VANN has been given the following list of patient education materials, prescriptions and follow-up instructions: Follow-up Instructions: In the event that this physician does not participate in your insurance network, please consult with your insurance company to find a nearby participating provider. Patient Education Materials: A MESSAGE TO ALL PATIENTS REGARDING OPIOIDS PRESCRIPTION OPIOIDS: WHAT YOU NEED TO KNOW Prescription opioids can be used to help relieve waxungxs-qx-jftqab pain and are often prescribed following a [...] visitors, children, friends, and family). ? Safely dispose of unused prescription opioids: Find your community drug take-back program or your pharmacy mail-back program, or flush them down the toilet, following guidance from the Food and Drug Administration (www.fda.gov/Drugs/Re sourcesForYou). ? Visit www.cdc.gov/drugoverd ose to learn about the risks of opioids abuse and overdose. ? If you believe you may be struggling with addiction, tell your health vp care management and ask for guidance or call [facility]?S National Helpline at 6-919-723-VPVS. u Source: US Department of Health and Human Services/Center for Disease Control & Preve (more content not included)... Normal [facility] ETHANOLon 07-06-2023 ETHANOL (MG/DL) IN SER/PLAS <10 Normal [facility] Comment on above: Performed By: #### L [id number] #### [facility] ([facility]ER) [address] [place] [address] ETHANOL CALCULATED (%) Normal Un [facility] Comment on above: Performed By: #### L [id number] #### [facility] ([facility] [address] [place] [address] HEMOGLOBIN A1Con 07-06-2023 Glucose [Mass/Vol] 148 mg/dL Normal [facility] Comment on above: Performed By: #### L [id number] #### [facility] ([facility] [address] [place] [address] HbA1c (Bld) [Mass fraction] 6.8 % High 4.0-6.0 [facility] Comment on above: Performed By: #### L [id number] #### [facility] ([facility] [address] [place] [address] LACTIC ACID WITH 4 HOUR REFL EXon 07-06-2023 LACTATE (MMOL/L) IN SER/PLAS 1.8 mmol/L Normal 0.5-2.2 [facility] Comment on above: Performed By: #### L [id number] #### [facility] (BEAKER) [address] [place] [address] LIPID PANELon 07-06-2023 CHOL/HDL 3.0 mg/dL Normal [facility] Comment on above: Performed By: #### L [id number] #### [facility] ([facility]ER) [address] [place] [address] Cholesterol [Mass/Vol] 143 mg/dL Normal 120-200 Un [facility] Comment on above: Performed By: #### L [id number] #### [facility] (BEAKER) [address] [place] [address] Magnesium [Mass/Vol] 159 mg/dL High 40-149 [facility] Comment on above: Result Comment: TRIG LYCERIDE REFERENCE RANGE: 20 YEARS AND OLDER CARDIOVASCULAR RISK LESS THAN 150 mg/dL LOW RISK 150 TO 199 mg/dL BORDERLINE RISK 200 mg/dL AND GREATER HIGH RISK Performed By: #### L [id number] #### [facility] ([facility]) [address] [place] [address] Magnesium [Mass/Vol] 63 mg/dL Normal 0-160 [facility] Comment on above: Performed By: #### L [id number] #### [facility] ([facility]) [address] [place] [address] Magnesium [Mass/Vol] 48 mg/dL Normal 23-92 [facility] Comment on above: Performed By: #### L [id number] #### [facility] ([facility]) [address] [place] [address] NON HDL CHOL. (LDL+VLDL) 95 Normal [facility] Comment on above: Performed By: #### L [id number] #### [facility] ([facility]) [address] [place] [address] TOTAL VLDL-C 32 mg/dL Normal 0-40 [facility] Comment on above: Performed By: #### L [id number] #### [facility] ([facility]) [address] [place] [address] MAGNESIUMon 07-06-2023 Magnesium [Mass/Vol] 2.2 mg/dL Normal 1.9-2.7 [facility] Comment on above: Performed By: #### L [id number] #### [facility] (BEAKER) [address] [place] [address] PHOSPHORUSon 07-06-2023 Magnesium [Mass/Vol] 5.2 mg/dL High 2.5-5.0 [facility] Comment on above: Performed By: #### L [id number] #### [facility] (BEAKER) [address] [place] [address] PROTIME-INRon 07-06-2023 INR IN PPP BY COAGULATION ASSAY 1.00 Normal 0.90-1.10 [facility] Comment on above: Result Comment: [facility] P RECOMMENDED INR FOR [facility] THERAPY CONDITION INR PROPHYLAXIS OF VENOUS THROMBOSIS 2-3 (HIGH-RISK SURGERY) TREATMENT OF VENOUS THROMBOSIS 2-3 TREATMENT OF PULMONARY EMBOLISM 2-3 PREVENTION OF SYSTEMIC EMBOLISM: 2-3 ACUTE MYOCARDIAL INFARCTION TISSUE HEART VALVES VALVULAR HEART DISEASE ATRIAL FIBRILLATION RECURRENT SYSTEMIC EMBOLISM MECHANICAL HEART VALVE 2.5-3.5 FROM: ORAL ANTICOAGULANTS. MECHANISM OF ACTION, CLINICAL EFFECTIVENESS, AND OPTIMAL THERAPEUTIC RANGE. CHEST 1995;108:231S-246S. Performed By: #### L [id number] #### [facility] (BEAKER) [address] [place] [address] PROTHROMBIN TIME (PT) IN PPP BY COAGULATION ASSAY 13.2 Seconds Normal 12.3-14.8 [facility] Comment on above: Performed By: #### L [id number] #### [facility] (BEAKER) [address] [place] [address] TOXICOLOGY PANEL URINEon AMPHETAMINE+METHAMPHET AMINE SCREEN (PRESENCE) IN URINE Negative Normal Negative [facility] Comment on above: Performed By: #### L [id number] #### [facility] (BEAKER) [address] [place] [address] BARBITURATES PRESENCE IN URINE BY SCREEN METHOD Negative Normal Negative [facility] Comment on above: Performed By: #### L [id number] #### [facility] ([facility]ER) [address] [place] [address] Benzodiazepines Ql (U) Positive Abnormal Negative Un [facility] Comment on above: Performed By: #### L [id number] #### [facility] (BEAKER) [address] [place] [address] CANNABINOID (PRESENCE) IN URINE BY SCREEN METHOD Positive Abnormal Negative [facility] Comment on above: Performed By: #### L [id number] #### [facility] (BEAKER) [address] [place] [address] Cocaine Ql (U) Negative Normal Negative [facility] Comment on above: Performed By: #### L [id number] #### [facility] ([facility] [address] [place] [address] METHADONE (PRESENCE) IN URINE BY SCREEN METHOD Negative Normal Negative [facility] Comment on above: Performed By: #### L [id number] #### [facility] (BEAKER) [address] [place] [address] OPIATES (PRESENCE) IN URINE BY SCREEN METHOD Negative Normal Negative [facility] Comment on above: Performed By: #### L [id number] #### [facility] (BEAKER) [address] [place] [address] PHENCYCLIDINE PRESENCE IN URINE BY SCREEN METHOD Negative Normal Negative [facility] Comment on above: Performed By: #### L [id number] #### [facility] (BEAKER) [address] [place] [address] Propoxyphene Screen Ql (U) Negative Normal Negative [facility] Comment on above: Performed By: #### L [id number] #### [facility] (BEAKER) [address] [place] [address] TRICYCLIC ANTIDEPRESSANTS (PRESENCE) IN URINE Positive Abnormal Negative [facility] Comment on above: Performed By: #### L [id number] #### [facility] (BEAKER) [address] [place] [address] TROPONIN Ion 07-06-2023 Troponin I.cardiac [Mass/Vol] 0.12 ng/mL Critically high 0.00-0.04 [facility] Comment on above: Result Comment: M-MO EVIOUS CRITICAL RESULT Previous result verified on 07/06/2023 1236 on specimen/case [id number] called with component Troponin I for procedure Troponin I with value 0.11 ng/mL. Performed By: #### L [id number] #### [facility] ([facility]) [address] [place] [address] Troponin I.cardiac [Mass/Vol] 0.11 ng/mL Critically high 0.00-0.04 [facility] Comment on above: Result Comment: M-MO EVIOUS CRITICAL RESULT Previous result verified on 07/06/2023 0444 on specimen/case [id number] called with component Troponin I for procedure Troponin I with value 0.12 ng/mL. Performed By: #### L [id number] #### [facility] ([facility]) [address] [place] [address] Troponin I.cardiac [Mass/Vol] 0.12 ng/mL Critically high 0.00-0.04 [facility] Comment on above: Result Comment: M-CR ITICAL RESULT(S) REVIEWED, CALLED TO AND READ BACK BY PRIYANKA LEOS RN AT 0442 M-TROPONIN INITIAL CRITICAL HIGH; RESPUN AND RETESTED Performed By: #### L [id number] #### [facility] ([facility]) [address] [place] [address] TSH3 REFLEX TO FT4on 024 THYROTROPIN (MIU/L) IN SER/PLAS BY DETECTION LIMIT <= 0.05 MIU/L 4.25 mIU/L Normal 0.34-5.60 [facility] Comment on above: Performed By: #### L [id number] #### [facility] ([facility]) [address] [place] [address] Transfer Documentson 024 Transfer Documents [id number] 1.00TIFF Normal [facility] URINALYSIS WITH REFLEX CULTU REon 07-06-2023 BILIRUBIN, TOTAL PRESENCE IN URINE Negative Normal Negative [facility] Comment on above: Order Comment: Micro scopics not performed on urines with negative chemical reactions unless requested on original order. Performed By: #### L [id number] #### [facility] (BEAKER) [address] [place] [address] Clarity (U) Clear Normal Clear [facility] Comment on above: Order Comment: Micro scopics not performed on urines with negative chemical reactions unless requested on original order. Performed By: #### L [id number] #### [facility] (BEAKER) [address] [place] [address] Color (U) Yellow Normal Yellow [facility] Comment on above: Order Comment: Micro scopics not performed on urines with negative chemical reactions unless requested on original order. Performed By: #### L [id number] #### [facility] (BEAKER) [address] [place] [address] Glucose (U) [Mass/Vol] mg/dL Abnormal Negative [facility] above: Order Comment: Micro scopics not performed on urines with negative chemical reactions unless requested on original order. Performed By: #### L [id number] #### [facility] (BEAKER) [address] [place] [address] HEMOGLOBIN PRESENCE IN URINE Negative Normal Negative [facility] Comment on above: Order Comment: Micro scopics not performed on urines with negative chemical reactions unless requested on original order. Performed By: #### L [id number] #### [facility] (BEAKER) [address] [place] [address] Ketones Ql (U) Negative Normal Negative [facility] Comment on above: Order Comment: Micro scopics not performed on urines with negative chemical reactions unless requested on original order. Performed By: #### L [id number] #### [facility] (BEAKER) [address] [place] [address] LEUKOCYTE ESTERASE PRESENCE IN URINE BY TEST STRIP Negative Normal Negative [facility] Comment on above: Order Comment: Micro scopics not performed on urines with negative chemical reactions unless requested on original order. Performed By: #### L [id number] #### [facility] ([facility]) [address] [place] [address] NITRITE PRESENCE IN URINE Negative Normal Negative [facility] Comment on above: Order Comment: Micro scopics not performed on urines with negative chemical reactions unless requested on original order. Performed By: #### L [id number] #### [facility] ([facility]) [address] [place] [address] pH (U) 6.0 [pH] Normal 5.0-8.0 [facility] Comment on above: Order Comment: Micro scopics not performed on urines with negative chemical reactions unless requested on original order. Performed By: #### L [id number] #### [facility] ([facility]) [address] [place] [address] Protein (U) [Mass/Vol] Negative Normal [facility] Comment on above: Order Comment: Micro scopics not performed on urines with negative chemical reactions unless requested on original order. Performed By: #### L [id number] #### [facility] [facility] ([facility]) [address] [place] [address] Specific gravity (U) [Rel density] 1.013 Low 1.015-1.020 [facility] Comment on above: Order Comment: Micro scopics not performed on urines with negative chemical reactions unless requested on original order. Performed By: #### L [id number] #### [facility] ([facility]) [address] [place] [address] BILIRUBIN, TOTAL PRESENCE IN URINE Negative Normal Negative [facility] Comment on above: Order Comment: Micro scopics not performed on urines with negative chemical reactions unless requested on original order. Performed By: #### L [id number] #### [facility] ([facility]) [address] [place] [address] Clarity (U) Clear Normal Clear [facility] Comment on above: Order Comment: Micro scopics not performed on urines with negative chemical reactions unless requested on original order. Performed By: #### L [id number] #### [facility] ([facility]) [address] [place] [address] Color (U) Yellow Normal Yellow [facility] Comment on above: Order Comment: Micro scopics not performed on urines with negative chemical reactions unless requested on original order. Performed By: #### L [id number] #### [facility] ([facility]) [address] [place] [address] Glucose (U) [Mass/Vol] mg/dL Abnormal Negative [facility] Comment on above: Order Comment: Micro scopics not performed on urines with negative chemical reactions unless requested on original order. Performed By: #### L [id number] #### [facility] ([facility]) [address] [place] [address] HEMOGLOBIN PRESENCE IN URINE Negative Normal Negative [facility] Comment on above: Order Comment: Micro scopics not performed on urines with negative chemical reactions unless requested on original order. Performed By: #### L [id number] #### [facility] ([facility]) [address] [place] [address] Ketones Ql (U) Negative Normal Negative [facility] Comment on above: Order Comment: Micro scopics not performed on urines with negative chemical reactions unless requested on original order. Performed By: #### L [id number] #### [facility] ([facility]) [address] [place] [address] LEUKOCYTE ESTERASE PRESENCE IN URINE BY TEST STRIP Negative Normal Negative [facility] Comment on above: Order Comment: Micro scopics not performed on urines with negative chemical reactions unless requested on original order. Performed By: #### L [id number] #### [facility] ([facility]) [address] [place] [address] NITRITE PRESENCE IN URINE Negative Normal Negative [facility] Comment on above: Order Comment: Micro scopics not performed on urines with negative chemical reactions unless requested on original order. Performed By: #### L [id number] #### [facility] ([facility]) [address] [place] [address] pH (U) 6.0 [pH] Normal 5.0-8.0 [facility] Comment on above: Order Comment: Micro scopics not performed on urines with negative chemical reactions unless requested on original order. Performed By: #### L [id number] #### [facility] ([facility]) [address] [place] [address] Protein (U) [Mass/Vol] Negative Normal Negative [facility] Comment on above: Order Comment: Micro scopics not performed on urines with negative chemical reactions unless requested on original order. Performed By: #### L [id number] #### [facility] ([facility]) [address] [place] [address] Specific gravity (U) [Rel density] 1.017 Normal 1.015-1.020 [facility] Comment on above: Order Comment: Micro scopics not performed on urines with negative chemical reactions unless requested on original order. Performed By: #### L [id number] #### [facility] [address] [place] [address] BMPon 07-05-2023 Anion gap [Moles/Vol] 15 mmol/L Normal 6-16 [facility] Comment on above: Performed By: #### 1 9256576, 8209627, 82520910, 07928576, 9770706, 23597542, 8347589, 7402095, 3050858, 6670430 ####[facility] [address] [place] [address] BUN/Creat Ratio 15 No Units Normal 10-20 [facility] Comment on above: Performed By: #### 1 4504947, 8481248, 55318034, 85958257, 7043332, 92835981, 6545056, 7199932, 5959376, 9356199 ####[facility] [address] [place] [address] Calcium [Mass/Vol] 10.1 mg/dL Normal 8.9-11.1 [facility] Comment on above: Performed By: #### 1 7823892, 8030159, 35697288, 11180672, 9700240, 85123797, 3767111, 8890485, 4705130, 1715182 ####[facility] [address] [place] [address] Chloride [Moles/Vol] 96 mmol/L Low 101-111 [facility] Comment on above: Performed By: #### 1 8408538, 0576901, 03562609, 87358503, 2802209, 53764074, 1586664, 3608635, 0129974, 6613497 ####[facility] [address] [place] [address] CO2 [Moles/Vol] 32 mmol/L High 21-31 [facility] Comment on above: Performed By: #### 1 8945245, 8298642, 95651169, 33603852, 4922004, 36258357, 8098101, 9880095, 8311755, 9647882 ####[facility] [address] [place] [address] Creatinine [Mass/Vol] 1.5 mg/dL High 0.5-1.3 [facility] Comment on above: Performed By: #### 1 0549776, 9928088, 60493025, 54378076, 0757458, 30929412, 2531057, 3843802, 2317925, 1520220 ####[facility] [address] [place] [address] Glucose [Mass/Vol] 147 mg/dL Normal 55-199 [facility] Comment on above: Performed By: #### 1 4481927, 6244134, 85533569, 81691011, 8496854, 14752147, 4052450, 6186828, 6261319, 5670709 ####[facility] [address] [place] [address] Potassium [Moles/Vol] 5.1 mmol/L Normal 3.5-5.3 [facility] Comment on above: Performed By: #### 1 3501879, 1629624, 52548666, 65368781, 0534479, 84297674, 0749199, 6436675, 5401315, 7353288 ####[facility] [address] [place] [address] Sodium [Moles/Vol] 138 mmol/L Normal 135-145 [facility] Comment on above: Performed By: #### 1 4509866, 4752702, 67343683, 60650749, 6488819, 70560603, 8909603, 7228057, 0503513, 6897775 ####[address] [place] [address] Urea nitrogen [Mass/Vol] 22 mg/dL High 5-21 [facility] Comment on above: Performed By: #### 1 3747409, 6158341, 58004877, 46337750, 8425613, 96131298, 8979390, 7168842, 4697367, 1505574 ####[address] [address] BNPon 07-05-2023 Natriuretic peptide B (Bld) [Mass/Vol] 508 pg/mL High 5-80 [facility] Comment on above: Performed By: #### 1 5138553, 3327336, 01643048, 49302929, 1354378, 31318684, 0240949, 1742315, 8173323, 8480644 ####[address] [address] CBC w/ Auto Diffon 4 Basophil Absolute 0.1 E9/L Normal 0.0-0.2 [facility] Comment on above: Performed By: #### 1 8985743, 1787289, 21699350, 06883336, 4422129, 01101173, 0188394, 6521913, 1949784, 5077762 ####[facility] [address] [place] [address] Basophils/100 WBC (Bld) 0.7 % Normal 0.0-2.0 [facility] Comment on above: Performed By: #### 1 0036435, 7901802, 45237360, 60397311, 4758252, 53519298, 0598626, 6235736, 9406176, 4772351 ####[facility] [address] [place], [place] Eos Absolute 0.4 E9/L Normal 0.0-0.5 [facility] Comment on above: Performed By: #### 1 7338805, 3674548, 10211588, 84312404, 9865924, 81715616, 4556289, 4509563, 9950228, 3461381 ####[address] [place] [address] Eosinophils/100 WBC (Bld) 3.7 % Normal 0.0-8.0 [facility] Comment on above: Performed By: #### 1 7950859, 4277569, 44857110, 52387285, 2376158, 14255987, 2660253, 8900845, 5489289, 0678953 ####[place] [address] Erythrocyte distribution width (RBC) [Ratio] 16.8 % High 10.9-14.2 [facility] Comment on above: Performed By: #### 1 2006538, 0351829, 80494334, 45117025, 1002846, 09213892, 9134949, 6208757, 3971139, 0210457 ####[address] [place] [address] Hematocrit (Bld) [Volume fraction] 46.0 % Normal 34.0-46.0 [facility] Comment on above: Performed By: #### 1 1076672, 7875293, 84647005, 03495538, 0246888, 21351199, 2899123, 1005344, 0179460, 9788187 ####[address] [address] Hemoglobin (Bld) [Mass/Vol] 15.1 g/dL Normal 12.0-16.0 [facility] Comment on above: Performed By: #### 1 3418324, 5614342, 02109023, 56375721, 9857179, 83771785, 0253633, 0735387, 4501753, 5439380 ####[facility] [address] [place] [address] Lymph Absolute 3.6 E9/L Normal 1.0-4.0 [facility] Comment on above: Performed By: #### 1 7260392, 4066733, 18564609, 22102263, 1366103, 50434760, 1920667, 8795553, 9045546, 1417190 ####[address] [place] [address] Lymphocytes/100 WBC (Bld) 30.9 % Normal 14.0-50.0 [facility] Comment on above: Performed By: #### 1 9012120, 2285431, 42809617, 10860122, 2139729, 80481499, 0885416, 4535381, 5737779, 1625520 ####[facility] [address] [place] [address] MCH (RBC) [Entitic mass] 27.6 pg Normal 27.0-34.0 [facility] Comment on above: Performed By: #### 1 7451135, 6734639, 52554328, 68466529, 2524712, 70405312, 5253550, 5236041, 4735738, 0737390 ####[facility] [address] [place] [address] MCHC (RBC) [Mass/Vol] 32.8 g/dL Normal 31.4-36.0 [facility] Comment on above: Performed By: #### 1 9301629, 6026961, 69545229, 06011774, 2206963, 18018128, 3296105, 8226315, 3132520, 5207664 ####[address] [place] [address] MCV (RBC) [Entitic vol] 84.3 fL Normal 80.0-100.0 [facility] Comment on above: Performed By: #### 1 5872573, 6359210, 59748358, 58866694, 0136156, 86734728, 3158383, 1130219, 8075407, 2596477 ####[facility] [address] [place] [address] Barbour Absolute 0.9 E9/L Normal 0.2-1.0 [facility] Comment on above: Performed By: #### 1 7315479, 2828434, 65943520, 06933194, 0169389, 83237731, 2067212, 6960597, 0578656, 0996981 ####[facility] [address] [place] [address] Monocytes/100 WBC (Bld) 8.1 % Normal 4.0-14.0 [facility] Comment on above: Performed By: #### 1 8252888, 4001251, 74146740, 58301459, 6326015, 90647582, 3250432, 2887728, 3178831, 4003013 ####[facility] [address] [place] [address] Neutro Absolute 6.6 E9/L Normal 2.0-7.5 [facility] Comment on above: Performed By: #### 1 6718416, 2489959, 71314362, 88655964, 6094192, 56163634, 5638851, 5071222, 1226310, 5898633 ####[facility] [address] [place] [address] Neutro Auto 56.6 % Normal 36.0-75.0 [facility] Comment on above: Performed By: #### 1 6969924, 6535684, 46882043, 64627129, 7655872, 72864826, 4256681, 6477934, 6569677, 4211777 ####[facility] [address] [place] [address] Platelet 431.0 E9/L Normal 150.0-500.0 [facility] Comment on above: Performed By: #### 1 8175306, 0859800, 63999618, 74002758, 8365891, 69831703, 0526349, 3686782, 2050670, 7723835 ####[facility] [address] [place] [address] Platelet mean volume (Bld) [Entitic vol] 8.5 fL Normal 6.4-10.8 [facility] Comment on above: Performed By: #### 1 9470252, 4998662, 99427232, 31583802, 1987682, 21072124, 8779682, 2411861, 0962164, 6607466 ####[facility] [address] [place] [address] RBC 5.5 E12/L Normal 4.3-5.9 [facility] Comment on above: Performed By: #### 1 5538630, 7090326, 22752492, 34743276, 2126487, 05016504, 6574512, 5822530, 5934263, 4590449 ####[facility] [address] [place] [address] WBC 11.6 E9/L High 4.0-11.0 [facility] Comment on above: Performed By: #### 1 0412474, 4543905, 36815282, 14411728, 5929892, 15972246, 6638594, 8846668, 1715578, 1160967 ####[facility] [address] [place] [address] CHEMISTRYOrdered By: SYSTEM SYSTEM on 07-05-2023 Troponin 51.10 pg/mL Invalid Interpretation Code 10.10 - 27.10 pg/mL [facility] Comment on above: Result Comment: Crit ical Result I_TnIHS:51.1 Called to and read back by: DR. JUAN MAS at: 07/05/2023 21:51:38 by:[id number] Critical Result Verified by Previous Result Interpretive Data: T he 95% CI (Confidence Interval) PPV (Positive Predictive Value) for myocardial infarction in females is 38 pg/mL, in males 51 pg/mL. The results should be used in conjunction with clinical conditions of myocardial infarction. (Access High Sensitivity Troponin I Instructions For Use, [employer], December 2017) Troponin 51.70 pg/mL Invalid Interpretation Code 10.10 - 27.10 pg/mL [facility] Chem S Comment on above: Interpretive Data: T he 95% CI (Confidence Interval) PPV (Positive Predictive Value) for myocardial infarction in females is 38 pg/mL, in males 51 pg/mL. The results should be used in conjunction with clinical conditions of myocardial infarction. (Access High Sensitivity Troponin I Instructions For Use, [employer], December 2017) Result Comment: Crit ical Result Verified by Previous Result Results Called To Johnna Perkins (ER) By STANFORD And Read Back For Confirmation On 07/05/2023 19:18:03 EST. Albumin [Mass/Vol] 4.3 g/dL Normal 3.3 - 5.0 gm/dL [facility] Albumin/Globulin [Mass ratio] 1.4 {ratio} Normal 1.1 - 2.2 [facility] Alk Phos 77 [iU]/d Normal 21 - 98 Int._Unit/L [facility] ALT 20 [iU]/d Normal 6 - 46 Int._Unit/L [facility] Anion gap [Moles/Vol] 15 mmol/L Normal 6 - 16 mEq/L R emisol Chem AST 23 [iU]/d Normal 5 - 43 Int._Unit/L [facility] Bili Direct 0.1 mg/dL Normal 0.0 - 0.4 mg/dL [facility] Bili Indirect 0.5 mg/dL Normal 0.1 - 0.9 mg/dL [facility] Bili Total 0.6 mg/dL Normal 0.0 - 1.1 mg/dL [facility] Calcium [Mass/Vol] 10.1 mg/dL Normal 8.9 - 11. 1 mg/dL [facility] Chloride [Moles/Vol] 96 mmol/L Low 101 - 1 11 mmol/L [facility] CO2 [Moles/Vol] 32 mmol/L High 21 - 31 mmol/L [facility] Creatinine [Mass/Vol] 1.5 mg/dL High 0.5 - 1.3 mg/dL [facility] Digoxin Lvl ng/mL Low 0.5 - 1.9 ng/mL [facility] eGFR 39 mL/min/1.73 m2 Low >=59mL/min /1 .73 m2 [facility] Globulin (S) [Mass/Vol] 3.0 g/dL Normal 1.4 - 4.0 gm/dL [facility] Glucose [Mass/Vol] 147 mg/dL Normal 55 - 199 mg/dL [facility] Lipase Lvl 22 unit/L Normal 13 - 58 unit/L [facility] Magnesium [Mass/Vol] 2.3 mg/dL Normal 1.3 - 2 .4 mg/dL [facility] Potassium [Moles/Vol] 5.1 mmol/L Normal 3.5 - 5.3 mmol/L [facility] Protein [Mass/Vol] 7.3 g/dL Normal 6.0 - 7.8 gm/dL [facility] Sodium [Moles/Vol] 138 mmol/L Normal 135 - 145 mmol/L [facility] Troponin 49.20 pg/mL Invalid Interpretation Code 10.10 - 27.10 pg/mL [facility] Comment on above: Result Comment: Crit ical Result Verified by Repeat Analysis Critical Result I_TnIHS:49.2 Called to and read back by: JOHNNA PERKINS at: 07/05/2023 16:37:35 by:[id number] Interpretive Data: T he 95% CI (Confidence Interval) PPV (Positive Predictive Value) for myocardial infarction in females is 38 pg/mL, in males 51 pg/mL. The results should be used in conjunction with clinical conditions of myocardial infarction. (Access High Sensitivity Troponin I Instructions For Use, [employer], December 2017) Urea nitrogen [Mass/Vol] 22 mg/dL High 5 - 21 mg/dL [facility] Urea nitrogen/Creatinine [Mass ratio] 15 mg/mg Normal 10 - 20 [facility] CHEMISTRYOrdered By: Elias Martell on 07-05-2023 Natriuretic peptide B (Bld) [Mass/Vol] 508 pg/mL High 5 - 80 pg/mL [facility] COAGULATIONOrdered By: Richar Kumar on 07-05-2023 aPTT Coag (PPP) [Time] 27.2 s Normal 25.1 - 36.5 second(s) [facility] Auto Coag Comment on above: Interpretive Data: P arameter 15 days - 4 weeks 1 - 5 months 6 - 11 months 1 - 5 years 6 - 10 years 11 - 17 years PTT Mean: 35.4 (27.6-45.6) Mean: 33.5 (24.8-40.7) Mean: 32.4 (25.1-40.7) Mean: 31.6 (24.0-39.2) Mean: 31.6 (26.9-38.7) Mean: 31.0 (24.6-38.4) Pediatric Reference ranges were obtained from a study by chong Keyes al. prepared from 1437 samples obtained at 7 different centers using the same coagulation reagent and instrumentation as [facility]. Currently there are no coagulation studies available worldwide for children to 14 days, and no normal ranges. Heparin therapeutic range (represented by Anti-Factor Xa activity of 0.2 - 0.4 U/mL) corresponds to PTT of 56.6 - 109.0 sec. INR Coag (PPP) [Relative time] 1.01 {INR} Invalid Interpretation Code [facility] Auto Coag Comment on above: Interpretive Data: I NR results are specifically intended to assess patients stabilized on long-term Anticoagulation therapy suggested INR s Less Intensive Anticoagulation 2.0 3.0 Conventional Range 3.0 4.5 PT Coag (PPP) [Time] 11.2 s Normal 9.4 - 1 2.5 second(s) [facility] Comment on above: Interpretive Data: 1 5 days - 4 weeks 1 - 5 months 6 -11 months 1-5 years 6-10 years 11 -17 years Mean: 11.2 (9.5-12.6) Mean: 11.0 (9.7-12.8) Mean: 11.0 (9.8-13.0) Mean: 11.3 (9.9-13.4) Mean: 11.7 (10.0-14.6) Mean: 11.8 (10.0 - 14.1) Pediatric Reference ranges were obtained from a study by chong Keyes alShaun prepared from 1437 samples obtained at 7 different centers using the same coagulation reagent and instrumentation as [facility]. Currently there are no coagulation studies available worldwide for children to 14 days, and no normal ranges. Consent for Treatmenton 06-15 Consent for Treatment [id number] Normal [facility] Digoxinon 07-05-2023 Digoxin Lvl <0.2 Low 0.5-1.9 [facility] Comment on above: Performed By: #### 1 [id number], 2348718, 43296836, 21042761, 7812296, 35911491, 8779050, 8082906, 1526025, 0076356 ####[facility] [address] [place] [address] ED Note-Physicianon 07-05-19 ED Note-Physician Basic Information Time Seen: Cher Perkins PA-C 07/05/2023 15:06 Chief Complaint Pt ca/me in via [facility] after starting to have chest pain this History of Present Illness This patient presents emergency department via EMS services with chief complaint chest pain. Patient states she woke up this morning with chest pain. It is just a constant aching. She also has her chronic right-sided low back pain that radiates to her right sciatic area. The patient states she was just released from [facility] 36 hours ago. She states she was there for heart problems but could not give me any further details. The patient states she had a cardiac stent placed many years ago. She states they started her on a water pill, but she does not know the name of it. She does not know any of her medications that she takes. The patient denies any fevers chills or sweats. She states she is nauseated but denies any actual vomiting. She denies any urinary or bowel complaints. She denies any difficulty breathing or shortness of breath. She denies any cough. The patient does smoke a pack of cigarettes daily. She denies alcohol use. She denies street drug use. She states nothing makes her pain better, nothing makes it worse. She states she feels very tired and weak. Patient is a very poor historian. Review of Systems Constitutional: +malaise Eyes: Denies visual changes, eye pain, double vision, scotomas, floaters ENT: Denies runny nose, epistaxis, sinus pain, ear pain, ringing in ears, tooth ache, sore throat, pain with swallowing Cardiovascular: + chest pain Respiratory: Denies cough, sputum production, wheezing, hemoptysis, shortness of breath, dyspnea on exertion Gastrointestinal: + Nausea Genitourinary: Denies any incontinence of urine, dysuria, hematuria, nocturia, polyuria, hesitancy, frequency, urgency, burning Musculoskeletal: Denies joint pain, morning stiffness, joint swelling, decreased range of motion, crepitus Integumentary: Denies any pruritus, rashes, lesions, wounds, petechiae Neurologic: Denies any changes in sight, smell, hearing, taste, seizures, headache, paresthesia, numbness, weakness, balance disturbance Psychiatric denies any depression, change in sleep patterns, anxiety, difficulty concentrating, paranoia, anhedonia, lack of energy, jaspreet Hematologic/lymphatic : Denies any purpura, petechiae, excessive bleeding, bruising Physical Exam Vitals & Measurements T: 36.4 ?C(Oral) HR: 52(Monitored) RR: 23 BP: 105/75 SpO2: 97% HT: 170.18 cm WT: 72.6 kg BMI: 25.07 Vital signs and nursing notes reviewed. General: Awake, alert, NAD. HEENT: Head is normocephalic, atraumatic. PERRL. EOMI. Sclerae are anicteric. External ears are normal. TMs are intact bilaterally. Canals are clear bilaterally. Nares are patent bilaterally. Oral mucosa is pink and moist. No lesions noted. Tongue protrudes in midline. Uvula rises with phonation. Neck is supple, no no palpable adenopathy. No JVD. Trachea is midline. Thorax: Symmetrical rise and fall Lungs: Clear to auscultation throughout all esquivel, no wheezes, no crackles Heart: Bradycardic at a rate of 54 with irregularly irregular rhythm. No murmur, gallop, rub Abdomen: No tenderness on palpation. Bowel sounds are present active and normal. No organomegaly. No palpable masses. No CVA tenderness. Extremities: Motor sensory pulses intact x4 extremities. No lower extremity edema. Skin: No lesions, rashes, ulcerations. No bruising or petechiae. Color appropriate, warm and dry Neuro: No oriented x3, no focal neuro deficits Psych: Mood and affect are normal Procedure Critical Care Time: 40 minutes billable from other separate procedures Medical Decision Making MEDICAL DECISION MAKING Number and Complexity of Problems Differential Diagnosis: A-fib with slow ventricular response, dehydration, electrolyte imbalance, ACS, acute lower urinary tract infection MDM Data External documents reviewed: Not applicable My EKG interpretation: Noted in chart if applicable My CT interpretation: Noted in chart if applicable My X-ray interpretation: Noted in chart if applicable My Ultrasound interpretation: Not applicable Decision rules/scores evaluated: Noted in chart if applicable Discussed with: PREMA Bernal Hospitalist yes Treatment and Disposition ED Course: Patient was interviewed and examined. The patient cannot tell me what her current medications are. She states she does remember they started a new water pill. The appropriate ER workup was initiated. EKG was A-fib with slow ventricular response at rate of 39. Appropriate ER workup was initiated. Patient has saline lock x 2 established. White blood count 11.6, hemoglobin 15.1, hematocrit 46.0, platelets of 431. Pro time 11.2, INR 1.01, PTT 27.2. Sodium 138, potassium 5.1, chloride 96, CO2 32, BUN of 22, creatinine 1.5, glucose 147, calcium 10.1. Magnesium 2.3. Lipase 22. BN peptide elevated at 508. Troponin 49.20. Chest x-ray with no acute int (more content not included)... Normal [facility] Comment on above: Result Comment: Elec tronically Signed By: Cher Perkins PA-C\.br\Date and Time Signed: 07/05/23 18:57 EST\.br\Electronically Co-Signed By: Cher Perkins PA-C\.br\Date and Time Co-Signed: 07/05/23 18:58 EST\.br\Electronically Co-Signed By: Arsenio Martin DO\.br\Date and Time Co-Signed: 07/05/23 19:01 EST HEMATOLOGYOrdered By: SYSTEM SYSTEM on 07-05-2023 Basophil Absolute 0.1 E9/L Normal 0.0 - 0.2 E9/L Remisol Heme Basophils/100 WBC (Bld) 0.7 % Normal 0.0 - 2.0 % Remisol Heme Eos Absolute 0.4 E9/L Normal 0.0 - 0.5 E9/L Remisol Heme Eosinophils/100 WBC (Bld) 3.7 % Normal 0.0 - 8.0 % Remisol Heme Erythrocyte distribution width (RBC) [Ratio] 16.8 % High 10.9 - 14.2 % Remisol Heme Hematocrit (Bld) [Volume fraction] 46.0 % Normal 34.0 - 46.0 % Remisol Heme Hemoglobin (Bld) [Mass/Vol] 15.1 g/dL Normal 12.0 - 16.0 gm/dL Remisol Heme Lymph Absolute 3.6 E9/L Normal 1.0 - 4.0 E9/L Remisol Heme Lymphocytes/100 WBC (Bld) 30.9 % Normal 14.0 - 50.0 % Remisol Heme MCH (RBC) [Entitic mass] 27.6 pg Normal 27.0 - 34.0 pg Remisol Heme MCHC (RBC) [Mass/Vol] 32.8 g/dL Normal 31.4 - 36.0 gm/dL Remisol Heme MCV (RBC) [Entitic vol] 84.3 fL Normal 80.0 - 100.0 fL Remisol Heme Barbour Absolute 0.9 E9/L Normal 0.2 - 1.0 E9/L Remisol Heme Monocytes/100 WBC (Bld) 8.1 % Normal 4.0 - 14.0 % Remisol Heme Neutro Absolute 6.6 E9/L Normal 2.0 - 7.5 E9/L Remisol Heme Neutro Auto 56.6 % Normal 36.0 - 75.0 % Remisol Heme Platelet 431.0 E9/L Normal 150.0 - 500.0 E9/L Remisol Heme Platelet mean volume (Bld) [Entitic vol] 8.5 fL Normal 6.4 - 10.8 fL Remisol Heme RBC 5.5 E12/L Normal 4.3 - 5.9 E12/L Remisol Heme WBC 11.6 E9/L High 4.0 - 11.0 E9/L Remisol Heme Hep Func Panelon 07-05-2023 Albumin [Mass/Vol] 4.3 g/dL Normal 3.3-5.0 [facility] Comment on above: Performed By: #### 1 [id number], 3778623, 29518616, 54333917, 3137150, 74055258, 2060799, 5117941, 3490204, 0313425 ####[address] [place] [address] Albumin/Globulin [Mass ratio] 1.4 {ratio} Normal 1.1-2.2 [facility] Comment on above: Performed By: #### 1 [id number], 9121684, 27343656, 15546415, 3226521, 11731312, 3741722, 2543589, 9252325, 6331659 ####[address] [place] [address] Alk Phos 77 Int._Unit/L Normal 21-98 [facility] Comment on above: Performed By: #### 1 5385122, 7599777, 90057341, 08493782, 7712534, 93642270, 5813011, 3119748, 3843205, 9279749 ####[address] [place] [address] ALT 20 Int._Unit/L Normal 6-46 [facility] Comment on above: Performed By: #### 1 3674008, 0026908, 58762848, 78630448, 2652929, 72912655, 7055490, 9567482, 3754110, 2426935 ####[address] [address] AST 23 Int._Unit/L Normal 5-43 [facility] Comment on above: Performed By: #### 1 4329147, 1519222, 69214982, 54194976, 6039864, 28482101, 3240712, 8170832, 2845044, 6160781 ####[address] [place] [address] Bili Direct 0.1 mg/dL Normal 0.0-0.4 [facility] Comment on above: Performed By: #### 1 3287035, 0442662, 02628479, 97508203, 0252015, 13568475, 1241968, 6416019, 1733349, 4544589 ####[address] [place] [address] Bili Indirect 0.5 mg/dL Normal 0.1-0.9 [facility] Comment on above: Performed By: #### 1 4496377, 0512113, 79289901, 49068452, 1575318, 29161393, 7486115, 0234856, 6814527, 3282730 ####[facility] [address] [place] [address] Bili Total 0.6 mg/dL Normal 0.0-1.1 [facility] Comment on above: Performed By: #### 1 3812922, 1926284, 24971128, 71236686, 7847686, 50659676, 8095460, 4043682, 4030732, 1154798 ####[address] [place] [address] Globulin (S) [Mass/Vol] 3.0 g/dL Normal 1.4-4.0 [facility] Comment on above: Performed By: #### 1 6303117, 6000617, 87091853, 74568257, 4500501, 64233428, 1172909, 5177989, 5644935, 9748750 ####[facility] [address] [place] [address] Protein [Mass/Vol] 7.3 g/dL Normal 6.0-7.8 [facility] Comment on above: Performed By: #### 1 8495995, 3219698, 62060982, 02063580, 5419094, 23121587, 9657885, 2383899, 9284123, 4435203 ####[facility] [address] [place] [address] Lipase Levelon 07-05-2023 Lipase Lvl 22 unit/L Normal 13-58 [facility] Comment on above: Performed By: #### 1 3602938, 1114885, 62816556, 09699713, 4071150, 78237245, 5103458, 3748416, 5208849, 9809807 ####[address] [place] [address] Magnesiumon 07-05-2023 Magnesium [Mass/Vol] 2.3 mg/dL Normal 1.3-2.4 [facility] Comment on above: Performed By: #### 1 3569163, 5080748, 19732754, 59042771, 6127072, 59945688, 3020412, 8695692, 3071655, 6213428 ####[facility] [address] [place] [address] Monitor Recordon 07-05-2023 Monitor Record [id number]# 1.00TIFF Normal [facility] Monitor Record [id number]# 1.00TIFF Normal [facility] Monitor Record [id number]# 1.00TIFF Normal [facility] PT & PTTon 07-05-2023 aPTT Coag (PPP) [Time] 27.2 second(s) Normal 25.1-36.5 [facility] Comment on above: Result Comment: Para [...] the same coagulation reagent and instrumentation as [facility]. Currently there are no coagulation studies available worldwide for children to 14 days, and no normal ranges. Heparin therapeutic range (represented by Anti-Factor Xa activity of 0.2 - 0.4 U/mL) corresponds to PTT of 56.6 - 109.0 sec. Performed By: #### 1 9858269, 9278968, 01286048, 78177586, 0318361, 02780040, 1155957, 3306997, 4893214, 7660450 ####[facility] [address] [place] [address] INR Coag (PPP) [Relative time] 1.01 {INR} Invalid Interpretation Code [facility] Comment on above: Result Comment: INR results are specifically intended to assess patients stabilized on long-term Anticoagulation therapy suggested INR?s ?Less Intensive Anticoagulation? 2.0 ? 3.0 Conventional Range 3.0 ? 4.5 Performed By: #### 1 9808559, 0734848, 77220312, 92839406, 3306081, 97392693, 3624781, 1092247, 3485521, 9210758 ####[facility] [address] [place] [address] PT Coag (PPP) [Time] 11.2 second(s) Normal 9.4-12.5 [facility] Comment on above: Result Comment: 15 [...] the same coagulation reagent and instrumentation as [facility]. Currently there are no coagulation studies available worldwide for children to 14 days, and no normal ranges. Performed By: #### 1 3572317, 7289714, 31570490, 36668478, 2213679, 08480787, 7199340, 4953837, 7325409, 2676168 ####[facility] [address] [place] [address] Pre-Arrival Noteon 4 Pre-Arrival Note Pre-Arrival Summary Name: , [place] [facility] Current Date: 07/05/2023 15:02:00 EST Gender: Female Date of : Age: 63 Pre-Arrival Type: EMS ETA: 07/05/2023 15:21:00 EST Primary Care Physician: Presenting Problem: HR 40s, CP, SOB, dizziness, abd. pain, nausea Pre-Arrival User: Oxana Pace RN Referring Source: Location: [place] Completion Date/Time: 07/05/2023 14:51:00 [facility] Emergency Department Pre-Hospital Report Form Vital Signs: Pre-Hospital Report: Treatment in Route: Response to Treatment: Misc. Issues: Normal [facility] Troponin 0 Hr.on 07-05-2023 Troponin 49.20 pg/mL Abnormal 10.10-27.10 [facility] Comment on above: Result Comment: Crit ical Result Verified by Repeat Analysis Critical Result I_TnIHS:49.2 Called to and read back by: JOHNNA PERKINS at: 07/05/2023 16:37:35 by:[email or web address] The 95% CI (Confidence Interval) PPV (Positive Predictive Value) for myocardial infarction in females is 38 pg/mL, in males 51 pg/mL. The results should be used in conjunction with clinical conditions of myocardial infarction. (Access High Sensitivity Troponin I Instructions For Use, Johana Christianne, December 2017) Performed By: #### 1 6970214, 0514425, 54234335, 25849906, 0115661, 25636661, 6166176, 7239509, 0159300, 1136353 ####[facility] [address] [place] [address] Troponin 3 Hr.on 07-05-2023 Troponin 51.70 pg/mL Abnormal 10.10-27.10 [facility] Comment on above: Result Comment: The 95% CI (Confidence Interval) PPV (Positive Predictive Value) for myocardial infarction in females is 38 pg/mL, in males 51 pg/mL. The results should be used in conjunction with clinical conditions of myocardial infarction. (Access High Sensitivity Troponin I Instructions For Use, [employer], December 2017) Critical Result Verified by Previous Result Results Called To Johnna Perkins (ER) By And Read Back For Confirmation On 07/05/2023 19:18:03 EST. Performed By: #### 1 [id number] ####[facility] [address] [place] [address] Troponin 6 Hr.on 07-05-2023 Troponin 51.10 pg/mL Abnormal 10.10-27.10 [facility] Comment on above: Result Comment: Crit ical Result I_TnIHS:51.1 Called to and read back by: DR. JUAN MAS at: 07/05/2023 21:51:38 by:[email or web address] Critical Result Verified by Previous Result The 95% CI (Confidence Interval) PPV (Positive Predictive Value) for myocardial infarction in females is 38 pg/mL, in males 51 pg/mL. The results should be used in conjunction with clinical conditions of myocardial infarction. (Wish Days High Sensitivity Troponin I Instructions For Use, [employer], December 2017) Performed By: #### 1 [id number] ####[facility] [address] [place] [address] XR Chest Single Viewon 07-05 XR Chest Single View Exam Date/Time: 07/05/2023 15:36 EST Reason for Exam: Chest pain Report IMPRESSION: NO RADIOGRAPHIC EVIDENCE OF ACUTE INTRATHORACIC PROCESS. EXAM: XR Chest Single View History: Chest pain Technique: Portable AP view of the chest. Comparison: Portable chest radiograph 08/09/[address] chest 08/09/2022 Findings: The cardiomediastinal silhouette is within normal limits. No pneumothorax, pleural effusion, or consolidation. The lungs appear mildly hyperinflated suggesting COPD. No acute osseous abnormality. Ordering Provider: Cher Perkins FINAL REPORT Dictated: 07/05/2023 3:39 pm Narinder Lux DO Signed (Electronic Signature): 07/05/2023 3:39 pm Signed by: Narinder Lux DO Transcribed by: SRAVANI Technologist: THONY Technical Comments Radiation Dose: Ka,r in mGy = na DAP = na Normal [facility] eGFRon 07-05-2023 eGFR 39 mL/min/1.73 m2 Low >=59 [facility] Comment on above: Order Comment: Order added by Discern Expert. Performed By: #### 1 [id number], 2039917, 51964357, 45228330, 4881280, 34692472, 5355756, 8251101, 8784421, 2077435 ####[facility] [address] [place] [address] 36on 07-03-2023 36 Unable to reach pt . Phone not in service [facility] 36 Pts phone number not in service. Spoke to pts friend Arvind and requested he have pt call us, he agrees. [facility] Documentationon 07-03-2023 Documentation [id number] Vivian Vann 1960 F Date Provider Department [place] 07/03/2023 [facility] No family history on file Reason for Visit and Comments: HF inpatient satisfaction suvrey sent. [Other] [facility] 30on 07-02-2023 30 The patient is Moderately Stable - Low risk of patient condition declining or worsening The patient's goals for the shift include discharge The clinical goals for the shift include discharge Problem: Pain - Adult Goal: Verbalizes/displays adequate comfort level or baseline comfort level Outcome: Adequate for Discharge Flowsheets (Taken 07/02/2023 0800) Verbalizes/displays adequate comfort level or baseline comfort level: Encourage patient to monitor pain and request assistance Assess pain using appropriate pain scale Administer analgesics based on type and severity of pain and evaluate response Implement non-pharmacological measures as appropriate and evaluate response Consider cultural and social influences on pain and pain management Notify Licensed Independent Practitioner if interventions unsuccessful or patient reports new pain Problem: Safety - Adult Goal: Free from fall injury Outcome: Adequate for Discharge Flowsheets (Taken 07/02/2023 0800) Free from fall injury: Assess patient frequently for physical needs Identify cognitive and physical deficits and behaviors that affect risk of falls Krebs fall precautions as indicated by assessment Educate patient/family on patient safety, including physical limitations Instruct patient to call for assistance with activity based on assessment Modify environment to reduce risk of injury Consider OT/PT consult to assist with strengthening/mobilit y Problem: Discharge Planning Goal: Discharge to home or other facility with appropriate resources Outcome: Adequate for Discharge Flowsheets (Taken 07/02/2023 0800) Discharge to home or other facility with appropriate resources: Identify barriers to discharge with patient and caregiver Arrange for needed discharge resources and transportation as appropriate Identify discharge learning needs (meds, wound care, etc) Refer to discharge planning if patient needs post-hospital services based on physician order or complex needs related to functional status, cognitive ability or social support system Arrange for interpreters to assist at discharge as needed Problem: Chronic Conditions and Co-morbidities Goal: Patient's chronic conditions and co-morbidity symptoms are monitored and maintained or improved Outcome: Adequate for Discharge Flowsheets (Taken 07/02/2023 0800) Care Plan - Patient's Chronic Conditions and Co-Morbidity Symptoms are Monitored and Maintained or Improved: Collaborate with multidisciplinary team to address chronic and comorbid conditions and prevent exacerbation or deterioration Monitor and assess patient's chronic conditions and comorbid symptoms for stability, deterioration, or improvement Update acute care plan with appropriate goals if chronic or comorbid symptoms are exacerbated and prevent overall improvement and discharge Normal [facility] 30 The patient is Moderately Stable - Low risk of patient condition declining or worsening The patient's goals for the shift include comfort/rest The clinical goals for the shift include vss Problem: Pain - Adult Goal: Verbalizes/displays adequate comfort level or baseline comfort level Outcome: Progressing Problem: Safety - Adult Goal: Free from fall injury Outcome: Progressing Flowsheets (Taken 07/01/2023 2200) Free from fall injury: Assess patient frequently for physical needs Identify cognitive and physical deficits and behaviors that affect risk of falls Krebs fall precautions as indicated by assessment Educate patient/family on patient safety, including physical limitations Instruct patient to call for assistance with activity based on assessment Modify environment to reduce risk of injury Consider OT/PT consult to assist with strengthening/mobilit y Problem: Discharge Planning Goal: Discharge to home or other facility with appropriate resources Outcome: Progressing Flowsheets (Taken 07/01/2023 2100) Discharge to home or other facility with appropriate resources: Identify barriers to discharge with patient and caregiver Arrange for needed discharge resources and transportation as appropriate Identify discharge learning needs (meds, wound care, etc) Refer to discharge planning if patient needs post-hospital services based on physician order or complex needs related to functional status, cognitive ability or social support system Problem: Chronic Conditions and Co-morbidities Goal: Patient's chronic conditions and co-morbidity symptoms are monitored and maintained or improved Outcome: Progressing Flowsheets (Taken 07/01/20232099) Care Plan - Patient's Chronic Conditions and Co-Morbidity Symptoms are Monitored and Maintained or Improved: Monitor and assess patient's chronic conditions and comorbid symptoms for stability, deterioration, or improvement Collaborate with multidisciplinary team to address chronic and comorbid conditions and prevent exacerbation or deterioration Update acute care plan with appropriate goals if chronic or comorbid symptoms are exacerbated and prevent overall improvement and discharge Normal [facility] BASIC METABOLIC PANELon - Anion gap [Moles/Vol] 11 mmol/L Normal 7-20 [facility] Comment on above: Performed By: #### L [id number] #### [facility] (BEAKER) [address] [place] [address] Calcium [Mass/Vol] 9.0 mg/dL Normal 8.6-10.3 [facility] Comment on above: Performed By: #### L [id number] #### [facility] ([facility]AKER) [address] [place] [address] Chloride [Moles/Vol] 91 mmol/L Low 98-107 [facility] Comment on above: Performed By: #### L [id number] #### [facility] ([facility]) [address] [place] [address] CO2 [Moles/Vol] 37 mmol/L High 21-31 [facility] Comment on above: Performed By: #### L [id number] #### [facility] ([facility]) [address] [place] [address] Creatinine [Mass/Vol] 0.89 mg/dL Normal 0.60-1.20 [facility] Comment on above: Performed By: #### L [id number] #### [facility] ([facility]) [address] [place] [address] GLOMERULAR FILTRATION RATE ML/MIN/1.73 SQ M.PREDICTED 73.3 mL/min/1.73m*2 Normal >60.0 [facility] Comment on above: Result Comment: The [facility]???s estimated glomerular filtration rate (eGFR) will no longer include consideration of race in its calculation. The National Kidney Foundation???s eGFR Task Force developed new recommendations for the estimation of the glomerular filtration rate in the [place] They recommend immediate implementation of the new equation refit without the race variable in all laboratories because the calculation does not include race. In addition to not including race in the calculation and reporting, it included diversity in its development, and has acceptable performance characteristics and potential consequences that do not disproportionately affect any one group of individuals. Performed By: #### L [id number] #### [facility] ([facility]) [address] [place] [address] Glucose [Mass/Vol] 123 mg/dL High 70-100 [facility] Comment on above: Performed By: #### L [id number] #### [facility] ([facility]) [address] [place] [address] Potassium [Moles/Vol] 3.7 mmol/L Normal 3.5-5.1 [facility] Comment on above: Performed By: #### L [id number] #### [facility] ([facility]) [address] [place] [address] Sodium [Moles/Vol] 135 mmol/L Low 136-145 [facility] Comment on above: Performed By: #### L [id number] #### [facility] ([facility]) [address] [place] [address] Urea nitrogen [Mass/Vol] 29 mg/dL High 7-25 [facility] Comment on above: Performed By: #### L [id number] #### [facility] ([facility]) [address] [place] [address] UREA NITROGEN/CREATININE (MASS RATIO) IN SER/PLAS 32.6 Normal [facility] Comment on above: Performed By: #### L [id number] #### [facility] ([facility] [address] [place] [address] CBCon 07-02-2023 Erythrocyte distribution width (RBC) [Ratio] 15.8 % High 11.5-15.0 [facility] Comment on above: Performed By: #### L [id number] ####[facility] ([facility])[address] [place] [address] ERYTHROCYTE MEAN CORPUSCULAR HEMOGLOBIN CONCENTRATION (G/DL) BY AUTOMATED 31.8 g/dL Low 32.0-35.0 [facility] Comment on above: Performed By: #### L [id number] ####[facility] ([facility])[address] [place] [address] Hematocrit (Bld) [Volume fraction] 44.0 % Normal 36.0-48.0 [facility] Comment on above: Performed By: #### L [id number] ####[facility] ([facility])[address] [place] [address] Hemoglobin (Bld) [Mass/Vol] 14.0 g/dL Normal 12.0-15.0 [facility] Comment on above: Performed By: #### L [id number] ####[facility] ([facility])[address] [place] [address] MCH (RBC) [Entitic mass] 27.9 pg Normal 27.0-33.0 [facility] Comment on above: Performed By: #### L [id number] ####[facility] ([facility])[address] [place] [address] MCV (RBC) [Entitic vol] 87.8 fL Normal 82.0-98.0 [facility] Comment on above: Performed By: #### L [id number] ####[facility] ([facility])[address] [place] [address] PLATELETS (10*3/UL) IN BLOOD AUTOMATED COUNT 285 10*3/uL Normal 150-400 [facility] Comment on above: Performed By: #### L [id number] ####[facility] (BEAKER)[address] [place] [address] RBC (Bld) [#/Vol] 5.01 10*6/uL High 3.80-5.00 [facility] Comment on above: Performed By: #### L [id number] ####[facility] ([facility] [place] [address] WBC (Bld) [#/Vol] 8.89 10*3/uL Normal 4.00-10.60 [facility] Comment on above: Performed By: #### L [id number] ####[facility] ([facility])[address] [place] [address] DSon 07-02-2023 DS Admit Date 06/29/2023 Discharge Date 07/02/2023 Discharge Diagnosis NSTEMI Acute on chronic HFpEF NYHA class 2 CAD DMII noninsulin dependent Chronic pain Anxiety GERD Tobacco abuse Discharge Disposition [facility] [place] [facility] Discharge Medications Your medication list START taking these medications Instructions Last Dose Given Next Dose Due furosemide 40 mg tablet Commonly known as: Lasix Take 1 tablet (40 mg) by mouth in the morning. spironolactone 25 mg tablet Commonly known as: Aldactone Take 1 tablet (25 mg) by mouth in the morning for 30 doses. CONTINUE taking these medications Instructions Last Dose Given Next Dose Due albuterol 90 mcg/actuation inhaler ALPRAZolam 1 mg tablet Commonly known as: Xanax aspirin 81 mg EC tablet atorvastatin 80 mg tablet Commonly known as: Lipitor busPIRone 10 mg tablet Commonly known as: Buspar cyclobenzaprine 10 mg tablet Commonly known as: Flexeril Farxiga 10 mg Generic drug: dapagliflozin propanediol gabapentin 300 mg capsule Commonly known as: Neurontin pantoprazole 40 mg EC tablet Commonly known as: ProtoNix traZODone 50 mg tablet Commonly known as: Desyrel STOP taking these medications carvedilol 6.25 mg tablet Commonly known as: Coreg clopidogrel 75 mg tablet Commonly known as: Plavix Where to Get Your Medications These medications were sent to [facility] - [place], [place] - [address], [facility] [address] furosemide 40 mg tablet spironolactone 25 mg tablet Activity Normal activity as tolerated Diet Continue on the same type of diet and foods as you were eating before your admission. Drink plenty of water. Allergies Hay fever and allergy relief and House dust Hospital Course History of Present Illness Vivian Vann is an 63 y.o. female who came from [facility] as direct asmission for NSTEMI. Patient presented 06/28/23 to [facility] for c/o chest pain and lower back pain. Patient troponin level found to be 557 and EKG showed new ischemia and inverted T-waves, NSTEMI. She was given nitroglycerin and started on heparin drip. Patient is 1 year s/p stent placement at [facility] on plavix and aspirin. Dr. Yoo with cardiology agreed to patient transfer here to [facility] with hospital medicine admitting and cardiology consult for intervention. Upon my assessment, patient resting sitting up in hospital bed and is A/O x4. She reports pain 7/10 in chest and chronic pain 10/10 in low back r/t her chronic sciatic pain. Physical assessment generally unremarkable. Denies N/V/D/C, dysuria. Reports recent new onset diabetes for which she had been scheduled for follow-up TODAY with PCP to review recent labs. She denies any s/sx of hyper/hypoglycemia. Denies headache, unexplained bruising, dyspnea, or shortness of breath. States chest pain is constant and did keep her up/awake overnight. Cardiac ECHO and EKG pending. X-Ray chest and Low back pending. Laboratory workup here at [facility] shows CBC unremarkable w/ exception of NCHC 31.8 and 15.3. CMP unremarkable w/ exception og mildly elevated glucose 148. PT/INR 13.0/0.98. aPTT 67.3, BNP 1,683, Mag 1.7, Troponin 0.07, and lactate 2.5. NSTEMI - s/p cardiac cath 06/29, Left main: patent. LAD: proximal LAD has 30% stenosis. The previously placed stent in the mid LAD is widely patent. The first diagonal branch has proximal 30% stenosis. Remainder of the LAD is patent. LCX: The circumflex is a moderate size vessel and is patent. RCA: The RCA is a large vessel and is dominant the RCA is widely patent. The PDA and DUNCAN are both large vessel and are both widely patent Acute on chronic HFpEF NYHA class 2 - right heart catheterization shows severely decompensated heart failure with mean wedge pressure 35 mmHg - echo done shows The left ventricle is normal size. Global left ventricular systolic function is normal. The EF is 60 % visually. Left ventricular wall thickness is normal. No regional wall motion abnormality. Right Ventricle: The right ventricle is normal in size. Normal right ventricular systolic function. Doppler studies suggest mildly elevated right sided pressures. - cards recommended lasix 40mg Qday, aldactone 25mg po Qday and farxiga at discharge. Patient's pressures have been low and has not been able to tolerate BB or ADRIA/Entresto. Will defer to outpatient CAD - cont home meds - cards did say she no longer needs to be on DAPT and did DC her plavix Pertinent Physical Exam At Time of Discharge Physical Exam Constitutional: Appearance: Normal appearance. HENT: Head: Normocephalic. Eyes: Extraocular Movements: Extraocular movements intact. Pupils: Pupils are equal, round, and reactive to light. Cardiovascular: Rate and Rhythm: Normal rate. Pulmonary: Effort: Pulmonary effort is normal. Abdominal: General: Abdo (more content not included)... Normal [facility] POCT GLUCOSE METER UNSOLICIT ED RESULTSon 07-02-2023 Glucose [Mass/Vol] 117 mg/dL High 70-105 [facility] Comment on above: Order Comment: Waive d Testing in the ED is performed under the ED CLIA certificate #[id number]. Result Comment: [email or web address] Performed By: #### L [id number] #### [facility] (BEAKER) [address] [place] [address] Glucose [Mass/Vol] 110 mg/dL High 70-105 [facility] Comment on above: Order Comment: Waive d Testing in the ED is performed under the ED CLIA certificate #[id number]. Result Comment: [email or web address] Performed By: #### L [id number] ####[facility] (BEAKER)[address] [place] [address] 30on 07-01-2023 30 The patient is Moderately Stable - Low risk of patient condition declining or worsening The patient's goals for the shift include comfort The clinical goals for the shift include stable vs Problem: Pain - Adult Goal: Verbalizes/displays adequate comfort level or baseline comfort level Outcome: Progressing Flowsheets (Taken 07/01/2023709) Verbalizes/displays adequate comfort level or baseline comfort level: Encourage patient to monitor pain and request assistance Assess pain using appropriate pain scale Administer analgesics based on type and severity of pain and evaluate response Implement non-pharmacological measures as appropriate and evaluate response Consider cultural and social influences on pain and pain management Notify Licensed Independent Practitioner if interventions unsuccessful or patient reports new pain Problem: Safety - Adult Goal: Free from fall injury Outcome: Progressing Flowsheets (Taken 07/01/2023699) Free from fall injury: Assess patient frequently for physical needs Identify cognitive and physical deficits and behaviors that affect risk of falls Krebs fall precautions as indicated by assessment Educate patient/family on patient safety, including physical limitations Instruct patient to call for assistance with activity based on assessment Modify environment to reduce risk of injury Consider OT/PT consult to assist with strengthening/mobilit y Problem: Discharge Planning Goal: Discharge to home or other facility with appropriate resources Outcome: Progressing Flowsheets (Taken 07/01/2023709) Discharge to home or other facility with appropriate resources: Arrange for needed discharge resources and transportation as appropriate Identify barriers to discharge with patient and caregiver Identify discharge learning needs (meds, wound care, etc) Arrange for interpreters to assist at discharge as needed Refer to discharge planning if patient needs post-hospital services based on physician order or complex needs related to functional status, cognitive ability or social support system Problem: Chronic Conditions and Co-morbidities Goal: Patient's chronic conditions and co-morbidity symptoms are monitored and maintained or improved Outcome: Progressing Flowsheets (Taken 07/01/2023709) Care Plan - Patient's Chronic Conditions and Co-Morbidity Symptoms are Monitored and Maintained or Improved: Monitor and assess patient's chronic conditions and comorbid symptoms for stability, deterioration, or improvement Collaborate with multidisciplinary team to address chronic and comorbid conditions and prevent exacerbation or deterioration Update acute care plan with appropriate goals if chronic or comorbid symptoms are exacerbated and prevent overall improvement and discharge Normal [facility] BASIC METABOLIC PANELon - Anion gap [Moles/Vol] 10 mmol/L Normal 7-20 [facility] Comment on above: Performed By: #### L [id number] #### [facility] (BEAKER) [address] [place] [address] Calcium [Mass/Vol] 8.3 mg/dL Low 8.6-10.3 [facility] Comment on above: Performed By: #### L [id number] #### [facility] ([facility] [address] [place] [address] Chloride [Moles/Vol] 98 mmol/L Normal 98-107 [facility] Comment on above: Performed By: #### L [id number] #### [facility] ([facility]) [address] [place] [address] CO2 [Moles/Vol] 35 mmol/L High 21-31 [facility] Comment on above: Performed By: #### L [id number] #### [facility] ([facility]) [address] [place] [address] Creatinine [Mass/Vol] 1.08 mg/dL Normal 0.60-1.20 [facility] Comment on above: Performed By: #### L [id number] #### [facility] ([facility]) [address] [place] [address] GLOMERULAR FILTRATION RATE ML/MIN/1.73 SQ M.PREDICTED 58.1 mL/min/1.73m*2 Low >60.0 [facility] Comment on above: Result Comment: The [facility]???s estimated glomerular filtration rate (eGFR) will no longer include consideration of race in its calculation. The National Kidney Foundation???s eGFR Task Force developed new recommendations for the estimation of the glomerular filtration rate in the [place] They recommend immediate implementation of the new equation refit without the race variable in all laboratories because the calculation does not include race. In addition to not including race in the calculation and reporting, it included diversity in its development, and has acceptable performance characteristics and potential consequences that do not disproportionately affect any one group of individuals. Performed By: #### L [id number] #### [facility] ([facility] [address] [place] [address] Glucose [Mass/Vol] 116 mg/dL High 70-100 [facility] Comment on above: Performed By: #### L [id number] #### [facility] ([facility]) [address] [place] [address] Potassium [Moles/Vol] 3.7 mmol/L Normal 3.5-5.1 [facility] Comment on above: Performed By: #### L [id number] #### [facility] ([facility]) [address] [place] [address] Sodium [Moles/Vol] 139 mmol/L Normal 136-145 [facility] Comment on above: Performed By: #### L [id number] #### [facility] ([facility]) [address] [place] [address] Urea nitrogen [Mass/Vol] 27 mg/dL High 7-25 [facility] Comment on above: Performed By: #### L [id number] #### [facility] ([facility]) [address] [place] [address] UREA NITROGEN/CREATININE (MASS RATIO) IN SER/PLAS 25.0 Normal [facility] Comment on above: Performed By: #### L [id number] #### [facility] ([facility]) [address] [place] [address] POCT GLUCOSE METER UNSOLICIT ED RESULTSon 07-01-2023 Glucose [Mass/Vol] 132 mg/dL High 70-105 [facility] Comment on above: Order Comment: Waive d Testing in the ED is performed under the ED CLIA certificate #[id number]. Result Comment: [email or web address] Performed By: #### L [id number] ####[facility] ([facility])[address] [place] [address] Glucose [Mass/Vol] 106 mg/dL High 70-105 [facility] Comment on above: Order Comment: Waive d Testing in the ED is performed under the ED CLIA certificate #[id number]. Result Comment: [email or web address] Performed By: #### L [id number] ####[facility] ([facility] [place] [address] Glucose [Mass/Vol] 121 mg/dL High 70-105 [facility] Comment on above: Order Comment: Waive d Testing in the ED is performed under the ED CLIA certificate #[id number]. Result Comment: [email or web address] Performed By: #### L [id number] ####[facility] ([facility])[address] [place] [address] Glucose [Mass/Vol] 105 mg/dL Normal 70-105 [facility] Comment on above: Order Comment: Waive d Testing in the ED is performed under the ED CLIA certificate #[id number]. Result Comment: [email or web address] Performed By: #### L [id number] #### [facility] ([facility]) [address] [place] [address] 30on 06-30-2023 30 The patient is Moderately Stable - Low risk of patient condition declining or worsening The patient's goals for the shift include comfort, rest The clinical goals for the shift include stable vitals Over the shift, the patient did not make progress toward the following goals. Problem: Pain - Adult Goal: Verbalizes/displays adequate comfort level or baseline comfort level Outcome: Progressing Problem: Safety - Adult Goal: Free from fall injury Outcome: Progressing Problem: Discharge Planning Goal: Discharge to home or other facility with appropriate resources Outcome: Progressing Problem: Chronic Conditions and Co-morbidities Goal: Patient's chronic conditions and co-morbidity symptoms are monitored and maintained or improved Outcome: Progressing Normal [facility] ANTI-XA (HEPARIN LEVEL)on HEPARIN UNFRACTIONATED (U/ML) IN PPP BY CHROMOGENIC METHOD <0.10 Invalid Interpretation Code 0.3-0.7 [facility] Comment on above: Order Comment: Check anti-Xa level every 6 hours while on heparin infusion, or per protocol. Result Comment: Rochelle roxaban and Apixaban will interfere with the anti Xa assay used to monitor UFH and LMWH. Performed By: #### L [id number] #### [facility] ([facility]) [address] [place] [address] CBCon 06-30-2023 Erythrocyte distribution width (RBC) [Ratio] 15.3 % High 11.5-15.0 [facility] Comment on above: Performed By: #### L [id number] ####[facility] (BEAKER)[address] [place] [address] ERYTHROCYTE MEAN CORPUSCULAR HEMOGLOBIN CONCENTRATION (G/DL) BY AUTOMATED 32.2 g/dL Normal 32.0-35.0 [facility] Comment on above: Performed By: #### L [id number] ####[facility] ([facility] [place] [address] Hematocrit (Bld) [Volume fraction] 35.7 % Low 36.0-48.0 [facility] Comment on above: Performed By: #### L [id number] ####[facility] ([facility])[address] [place] [address] Hemoglobin (Bld) [Mass/Vol] 11.5 g/dL Low 12.0-15.0 [facility] Comment on above: Performed By: #### L [id number] ####[facility] (BEAKER)[address] [place] [address] MCH (RBC) [Entitic mass] 28.1 pg Normal 27.0-33.0 [facility] Comment on above: Performed By: #### L [id number] ####[facility] (BEAKER)[address] [place] [address] MCV (RBC) [Entitic vol] 87.3 fL Normal 82.0-98.0 [facility] Comment on above: Performed By: #### L [id number] ####[facility] (BEAKER)[address] [place] [address] PLATELETS (10*3/UL) IN BLOOD AUTOMATED COUNT 219 10*3/uL Normal 150-400 [facility] Comment on above: Performed By: #### L [id number] ####[facility] (BEAKER)[address] [place] [address] RBC (Bld) [#/Vol] 4.09 10*6/uL Normal 3.80-5.00 [facility] Comment on above: Performed By: #### L [id number] ####[facility] (BEAKER)[address] [place] [address] WBC (Bld) [#/Vol] 10.22 10*3/uL Normal 4.00-10.60 [facility] Comment on above: Performed By: #### L [id number] ####[facility] (BEAKER)[address] [place] [address] CONSULTon 06-30-2023 CONSULT Clinical Nutrition Assessment Name: Vivian Vann Date: 1960 Date of Visit: 06/30/23 Reason for assessment: MD referral HF Information obtained from: patient, medical record, and nursing Medical History No chief complaint on file. History reviewed. No pertinent past medical history. History reviewed. No pertinent surgical history. Current Outpatient Medications Medication Instructions albuterol 90 mcg/actuation inhaler 2 puffs, inhalation, Every 6 hours PRN ALPRAZolam (XANAX) 1 mg, oral, 2 times daily aspirin 81 mg, oral, Daily atorvastatin (LIPITOR) 80 mg, oral, Daily busPIRone (BUSPAR) 10 mg, oral, 2 times daily carvedilol (Coreg) 6.25 mg tablet TAKE ONE TABLET BY MOUTH EVERY 12 HOURS WITH FOOD clopidogrel (PLAVIX) 75 mg, oral, Daily cyclobenzaprine (FLEXERIL) 10 mg, oral, 2 times daily PRN dapagliflozin propanediol (FARXIGA) 10 mg, oral, Daily gabapentin (NEURONTIN) 300 mg, oral, 3 times daily pantoprazole (PROTONIX) 40 mg, oral, Daily before breakfast, Do not crush, chew, or split. traZODone (DESYREL) 50 mg, oral, Nightly Allergies Allergen Reactions Hay Fever And Allergy Relief House Dust Nutrition Problems: Skin Integrity: intact Other: S/p heart cath today Echo 06/29/23: EF 60% Results from last 7 days Lab Units 06/30/23 0535 06/29/23 2122 06/29/23 1736 06/29/23 1153 GLUCOSE mg/dL -- 268* -- 148* BUN mg/dL -- 14 -- 10 CREATININE mg/dL -- 1.04 -- 1.01 SODIUM mmol/L -- 137 -- 140 POTASSIUM mmol/L -- 4.1 -- 4.2 MAGNESIUM mg/dL -- 2.1 2.2 1.7* HEMOGLOBIN g/dL 11.5* -- -- 12.5 WBC AUTO 10*3/uL 10.22 -- -- 9.91 I/O: Intake/Output Summary (Last 24 hours) at 06/30/2023 1126 Last data filed at 06/30/2023 0638 Gross per 24 hour Intake 1076.54 ml Output 960 ml Net 116.54 ml Current Medications: atorvastatin, 80 mg, oral, Nightly dapagliflozin propanediol, 10 mg, oral, Daily furosemide, 40 mg, intravenous, q12h gabapentin, 300 mg, oral, TID losartan, 50 mg, oral, Daily pantoprazole, 40 mg, intravenous, Daily before breakfast Or pantoprazole, 40 mg, oral, Daily before breakfast spironolactone, 25 mg, oral, Daily Anthropometrics: Height: 172 cm (5' 7.72 ) Weight: 72.6 kg (160 lb) Body mass index is 24.53 kg/m???. Wt Readings from Last 7 Encounters: 06/30/23 72.6 kg (160 lb) 11/24/21 80.3 kg (177 lb) IBW: 63.6 kg Weight change: -10% in 18 months Severity of weight change: mild Nutrition Assessment: Diet History: Lives at home. Reports that she cooks for one and does end up using convenient foods. States lots of canned soups. Does not add salt to foods. Dietary Orders (From admission, onward) Start Ordered 06/29/23 1735 Regular Diet Heart Healthy/HTN, CABG,Stroke, (2gNA, low fat, low cholesterol) Diet effective now Question Answer Comment Room Service? Yes Fat restriction: Heart Healthy/HTN, CABG,Stroke, (2gNA, low fat, low cholesterol) 06/29/23 1734 Percent Meals Eaten (%): 75 (06/29/23 2000 : Rachel Bernal RN) Nutrition Risk: Low Nutrition Recommendations: Continue current diet. Monitor need for DM diet modifier Good intakes at this time. No nutritional risk. No significant weight changes. Reviewed HF diet education. Denies questions/concerns. Goals: Nutrition Goals: intake > 75% meals and compliance w/ MNT Jhonny Nunez RD (Please reach out with questions and contact the dietitian via SnapMD chat 8A-4P Sunday-Sunday. Or call the dietitian's office at extension [phone]. For weekends/holidays, the dietitian's can be reached by paging [phone] from 9A-3P. Unable to be reached via EvntLive chat on Sunday & .) Normal [facility] HEMOGLOBIN A1Con 06-30-2023 Glucose [Mass/Vol] 143 mg/dL Normal [facility] Comment on above: Performed By: #### L [id number] ####[facility] (BEAKER)[address] [place] [address] HbA1c (Bld) [Mass fraction] 6.6 % High 4.0-6.0 [facility] Comment on above: Performed By: #### L [id number] ####[facility] (BEAKER)[address] [place] [address] LACTIC ACID WITH 4 HOUR REFL EXon 06-30-2023 LACTATE (MMOL/L) IN SER/PLAS 1.9 mmol/L Normal 0.5-2.2 [facility] Comment on above: Performed By: #### L [id number] #### [facility] (BEAKER) [address] [place] [address] POCT GLUCOSE METER UNSOLICIT ED RESULTSon 06-30-2023 Glucose [Mass/Vol] 156 mg/dL High 70-105 [facility] Comment on above: Order Comment: Waive d Testing in the ED is performed under the ED CLIA certificate #[id number]. Result Comment: [email or web address] Performed By: #### L [id number] ####[facility] (BEAKER)[address] [place] [address] Glucose [Mass/Vol] 149 mg/dL High 70-105 [facility] Comment on above: Order Comment: Waive d Testing in the ED is performed under the ED CLIA certificate #[id number]. Result Comment: [email or web address] Performed By: #### L [id number] #### [facility] ([facility]) [address] [place] [address] Glucose [Mass/Vol] 181 mg/dL High 70-105 [facility] Comment on above: Order Comment: Waive d Testing in the ED is performed under the ED CLIA certificate #[id number]. Result Comment: [email or web address] Performed By: #### L [id number] #### [facility] ([facility] [address] [place] [address] 30on 06-29-2023 30 The patient is Moderately Stable - Low risk of patient condition declining or worsening The patient's goals for the shift include comfort, rest The clinical goals for the shift include comfort, stable vitals Over the shift, the patient did not make progress toward the following goals. Problem: Pain - Adult Goal: Verbalizes/displays adequate comfort level or baseline comfort level Outcome: Progressing Problem: Safety - Adult Goal: Free from fall injury Outcome: Progressing Problem: Discharge Planning Goal: Discharge to home or other facility with appropriate resources Outcome: Progressing Problem: Chronic Conditions and Co-morbidities Goal: Patient's chronic conditions and co-morbidity symptoms are monitored and maintained or improved Outcome: Progressing Normal [facility] 30 The patient is Moderately Stable - Low risk of patient condition declining or worsening The patient's goals for the shift include no chest pain The clinical goals for the shift include vss Over the shift, the patient did not make progress toward the following goals. Barriers to progression include . Recommendations to address these barriers include . Normal [facility] APTTon 06-29-2023 ACTIVATED PARTIAL THROMBOPLASTIN TIME IN PPP BY COAGULATION ASSAY 67.3 Seconds High 25.0-35.0 [facility] Comment on above: Result Comment: Clin ical significance of the APTT is questionable in the presence of heparin. Performed By: #### L [id number] #### [facility] ([facility] [address] [place] [address] B-TYPE NATRIURETIC PEPTIDEon 06-29-2023 Natriuretic peptide B (Bld) [Mass/Vol] 1683 pg/mL High 0-100 [facility] Comment on above: Performed By: #### L [id number] #### [facility] ([facility] [address] [place] [address] BASIC METABOLIC PANELon 06-14 Anion gap [Moles/Vol] 14 mmol/L Normal 7-20 [facility] Comment on above: Performed By: #### L [id number] #### [facility] ([facility]) [address] [place] [address] Calcium [Mass/Vol] 8.2 mg/dL Low 8.6-10.3 [facility] Comment on above: Performed By: #### L [id number] #### [facility] ([facility]) [address] [place] [address] Chloride [Moles/Vol] 102 mmol/L Normal 98-107 [facility] Comment on above: Performed By: #### L [id number] #### [facility] ([facility]) [address] [place] [address] CO2 [Moles/Vol] 25 mmol/L Normal 21-31 [facility] Comment on above: Performed By: #### L [id number] #### [facility] ([facility]) [address] [place] [address] Creatinine [Mass/Vol] 1.04 mg/dL Normal 0.60-1.20 [facility] Comment on above: Performed By: #### L [id number] #### [facility] ([facility]) [address] [place] [address] GLOMERULAR FILTRATION RATE ML/MIN/1.73 SQ M.PREDICTED 60.8 mL/min/1.73m*2 Normal >60.0 [facility] Comment on above: Result Comment: The [facility]???s estimated glomerular filtration rate (eGFR) will no longer include consideration of race in its calculation. The National Kidney Foundation???s eGFR Task Force developed new recommendations for the estimation of the glomerular filtration rate in the [place] They recommend immediate implementation of the new equation refit without the race variable in all laboratories because the calculation does not include race. In addition to not including race in the calculation and reporting, it included diversity in its development, and has acceptable performance characteristics and potential consequences that do not disproportionately affect any one group of individuals. Performed By: #### L [id number] #### [facility] ([facility]) [address] [place] [address] Glucose [Mass/Vol] 268 mg/dL High 70-100 [facility] Comment on above: Performed By: #### L [id number] #### [facility] ([facility]) [address] [place] [address] Potassium [Moles/Vol] 4.1 mmol/L Normal 3.5-5.1 [facility] Comment on above: Performed By: #### L [id number] #### [facility] ([facility]) [address] [place] [address] Sodium [Moles/Vol] 137 mmol/L Normal 136-145 [facility] Comment on above: Performed By: #### L [id number] #### [facility] ([facility]) [address] [place] [address] Urea nitrogen [Mass/Vol] 14 mg/dL Normal 7-25 [facility] Comment on above: Performed By: #### L [id number] #### [facility] ([facility]) [address] [place] [address] UREA NITROGEN/CREATININE (MASS RATIO) IN SER/PLAS 13.5 Normal [facility] Comment on above: Performed By: #### L [id number] #### [facility] ([facility]) [address] [place] [address] CBCon 06-29-2023 Erythrocyte distribution width (RBC) [Ratio] 15.3 % High 11.5-15.0 [facility] Comment on above: Performed By: #### L [id number] #### [facility] ([facility]) [address] [place] [address] ERYTHROCYTE MEAN CORPUSCULAR HEMOGLOBIN CONCENTRATION (G/DL) BY AUTOMATED 31.8 g/dL Low 32.0-35.0 [facility] Comment on above: Performed By: #### L [id number] #### [facility] ([facility]) [address] [place] [address] Hematocrit (Bld) [Volume fraction] 39.3 % Normal 36.0-48.0 [facility] Comment on above: Performed By: #### L [id number] #### [facility] ([facility]) [address] [place] [address] Hemoglobin (Bld) [Mass/Vol] 12.5 g/dL Normal 12.0-15.0 [facility] Comment on above: Performed By: #### L [id number] #### [facility] ([facility]) [address] [place] [address] MCH (RBC) [Entitic mass] 28.4 pg Normal 27.0-33.0 [facility] Comment on above: Performed By: #### L [id number] #### [facility] ([facility]) [address] [place] [address] MCV (RBC) [Entitic vol] 89.3 fL Normal 82.0-98.0 [facility] Comment on above: Performed By: #### L [id number] #### [facility] ([facility]) [address] [place] [address] PLATELETS (10*3/UL) IN BLOOD AUTOMATED COUNT 218 10*3/uL Normal 150-400 [facility] Comment on above: Performed By: #### L [id number] #### [facility] ([facility]) [address] [place] [address] RBC (Bld) [#/Vol] 4.40 10*6/uL Normal 3.80-5.00 [facility] Comment on above: Performed By: #### L [id number] #### [facility] ([facility] [address] [place] [address] WBC (Bld) [#/Vol] 9.91 10*3/uL Normal 4.00-10.60 [facility] Comment on above: Performed By: #### L [id number] #### [facility] ([facility]) [address] [place] [address] COMPREHENSIVE METABOLIC PANE Pollo 06-29-2023 Albumin [Mass/Vol] 3.8 g/dL Normal 3.5-5.7 [facility] Comment on above: Performed By: #### L [id number] ####[facility] (BEAKER)[address] [place] [address] ALP [Catalytic activity/Vol] 77 U/L Normal 34-104 [facility] Comment on above: Performed By: #### L [id number] ####[facility] ([facility]AKER)[address] [place] [address] ALT [Catalytic activity/Vol] 23 U/L Normal 7-52 [facility] Comment on above: Performed By: #### L [id number] ####[facility] ([facility]ER)[address] [place] [address] Anion gap [Moles/Vol] 10 mmol/L Normal 7-20 [facility] Comment on above: Performed By: #### L [id number] ####[facility] (BEAKER)[address] [place] [address] AST [Catalytic activity/Vol] 23 U/L Normal 13-39 [facility] Comment on above: Performed By: #### L [id number] ####[facility] (BE[facility]ER)[address] [place] [address] Bilirubin [Mass/Vol] 0.4 mg/dL Normal 0.3-1.0 [facility] Comment on above: Performed By: #### L [id number] ####[facility] (BEAKER)[address] [place] [address] Calcium [Mass/Vol] 8.6 mg/dL Normal 8.6-10.3 [facility] Comment on above: Performed By: #### L [id number] ####[facility] ([facility]ER)[address] [place] [address] Chloride [Moles/Vol] 107 mmol/L Normal 98-107 [facility] Comment on above: Performed By: #### L [id number] ####[facility] (BEAKER)[address] [place] [address] CO2 [Moles/Vol] 27 mmol/L Normal 21-31 [facility] Comment on above: Performed By: #### L [id number] ####[facility] ([facility] [place] [address] Creatinine [Mass/Vol] 1.01 mg/dL Normal 0.60-1.20 [facility] Comment on above: Performed By: #### L [id number] ####[facility] ([facility])[address] [place] [address] GLOMERULAR FILTRATION RATE ML/MIN/1.73 SQ M.PREDICTED 62.9 mL/min/1.73m*2 Normal >60.0 [facility] Comment on above: Result Comment: The [facility]???s estimated glomerular filtration rate (eGFR) will no longer include consideration of race in its calculation. The National Kidney Foundation???s eGFR Task Force developed new recommendations for the estimation of the glomerular filtration rate in the [place] They recommend immediate implementation of the new equation refit without the race variable in all laboratories because the calculation does not include race. In addition to not including race in the calculation and reporting, it included diversity in its development, and has acceptable performance characteristics and potential consequences that do not disproportionately affect any one group of individuals. Performed By: #### L [id number] ####[facility] (BEAKER)[address] [place] [address] Glucose [Mass/Vol] 148 mg/dL High 70-100 [facility] Comment on above: Performed By: #### L [id number] ####[facility] (BEAKER)[address] [place] [address] Potassium [Moles/Vol] 4.2 mmol/L Normal 3.5-5.1 [facility] Comment on above: Performed By: #### L [id number] ####[facility] ([facility])[address] [place] [address] Protein [Mass/Vol] 6.3 g/dL Normal 6.0-8.3 [facility] Comment on above: Performed By: #### L [id number] ####[facility] ([facility])[address] [place] [address] Sodium [Moles/Vol] 140 mmol/L Normal 136-145 [facility] Comment on above: Performed By: #### L [id number] ####[facility] ([facility])[address] [place] [address] Urea nitrogen [Mass/Vol] 10 mg/dL Normal 7-25 [facility] Comment on above: Performed By: #### L [id number] ####[facility] ([facility])[address] [place] [address] UREA NITROGEN/CREATININE (MASS RATIO) IN SER/PLAS 9.9 Normal [facility] Comment on above: Performed By: #### L [id number] ####[facility] ([facility])[address] [place] [address] CONSULTon 06-29-2023 CONSULT - Attestation signed by Vinay Yoo MD at 06/30/2023 10:52 AM By using the attestations below, the signing clinician agrees that I have read and verify that the documentation has been personally reviewed by me and ensure that the documentation accurately reflects the encounter. GC: I personally saw this patient on the day of the encounter, performed the lara portion(s) of the service and participated in the management and confirm the resident's documentation. Please note there may be an additional personal documentation from me. Pt can benefit from a cath to eval for cause of ischemia as evident from EKG changes and trop leak. If schedule permits, cath today on Sunday and if not, Sunday. Cardiology Consult Note Reason for Consult: NSTEMI HPI: Vivian Vann is a 63 y.o. female with PMH of CAD s/p PCI to LAD (October 2021), HTN, HLD, COPD, tobacco use comes as a transfer from [facility] due to suspected NSTEMI. Patient was complaining of sudden onset worsening retrosternal chest pain radiating to left arm accompanied with shortness of breath since yesterday. CP was 6-7/10 in intensity, sharp in nature and was constant. As per patient, she was getting exertional chest pain as well as SOB for the past few months. She was given loading dose of aspirin, started on heparin drip and given IV morphine at the outside hospital. She has been transferred for possible repeat cath. EKG reviewed outside hospital showed T wave inversions from V4 to V6 and repeat EKG here shows persistent T wave inversions on lateral leads. Her troponins were elevated at 557 at [facility] and recheck here shows 0.07. Patient continues to complain of persistent chest pain however intensity is much reduced. She is currently hemodynamically stable and endorses no shortness of breath or lower extremity swelling at this time. Review of Systems Constitutional: Positive for fatigue. HENT: Negative. Eyes: Negative. Respiratory: Positive for shortness of breath. Cardiovascular: Positive for chest pain. Gastrointestinal: Negative. Endocrine: Negative. Genitourinary: Negative. Skin: Negative. Allergic/Immunologic: Negative. Neurological: Negative. Negative for dizziness, light-headedness and headaches. Hematological: Negative. Psychiatric/Behaviora l: Negative. Past Medical History She has no past medical history on file. Surgical History She has no past surgical history on file. Social History She reports that she has been smoking cigarettes. She started smoking about 41 years ago. She has a 41.00 pack-year smoking history. She does not have any smokeless tobacco history on file. She reports current drug use. Drug: Marijuana. No history on file for alcohol use. Family History No family history on file. Allergies Hay fever and allergy relief and House dust Medications Medications Prior to Admission Medication Sig Dispense Refill Last Dose albuterol 90 mcg/actuation inhaler Inhale 2 puffs every 6 (six) hours if needed for wheezing. ALPRAZolam (Xanax) 1 mg tablet Take 1 mg by mouth Twice daily at 6am and 6pm. aspirin 81 mg EC tablet Take 81 mg by mouth in the morning. atorvastatin (Lipitor) 80 mg tablet Take 80 mg by mouth in the morning. busPIRone (Buspar) 10 mg tablet Take 10 mg by mouth in the morning and at bedtime. carvedilol (Coreg) 6.25 mg tablet TAKE ONE TABLET BY MOUTH EVERY 12 HOURS WITH FOOD 180 tablet 3 Past Week clopidogrel (Plavix) 75 mg tablet Take 75 mg by mouth in the morning. cyclobenzaprine (Flexeril) 10 mg tablet Take 10 mg by mouth if needed in the morning and at bedtime for muscle spasms. dapagliflozin propanediol (Farxiga) 10 mg Take 10 mg by mouth in the morning. gabapentin (Neurontin) 300 mg capsule Take 300 mg by mouth in the morning, at noon, and at bedtime. pantoprazole (ProtoNix) 40 mg EC tablet Take 40 mg by mouth before breakfast. Do not crush, chew, or split. traZODone (Desyrel) 50 mg tablet Take 50 mg by mouth at bedtime. Last Recorded Vitals Patient Vitals for the past 24 hrs: BP Temp Temp src Pulse Resp SpO2 Height Weight 06/29/23 1300 112/78 -- -- 63 12 98 % -- -- 06/29/23 1113 135/89 37.1 ???C (98.8 ???F) Temporal 63 14 98 % 1.72 m (5' 7.72 ) 75.7 kg (166 lb 14.2 oz) Physical Examination: GENERAL: AOx3, in no acute distress. HEAD: Atraumatic, normocephalic. EYES: IZABELLA, EOMI. NECK: No JVD present. CARDIAC: RRR. No murmur, rubs, or gallops. RESPIRATORY: CTAB, no increased effort of breathing. ABDOMEN: Soft, nontender, nondistended. EXTREMITIES: No lower extremity edema, peripheral pulses are 2+ bilaterally. NEURO: No focal deficits Relevant Lab Results Encounter Date: 06/29/23 ECG 12 lead Result Value Ventricular Rate 61 Atrial Rate 61 MO Interval 150 (more content not included)... Normal [facility] HPon 06-29-2023 HP Interval Pre-Procedural H&P Reason for Consult: NSTEMI HPI: Vivian Vann is a 63 y.o. female with PMH of CAD s/p PCI to LAD (October 2021), HTN, HLD, COPD, tobacco use comes as a transfer from [facility] due to suspected NSTEMI. Patient was complaining of sudden onset worsening retrosternal chest pain radiating to left arm accompanied with shortness of breath since yesterday. CP was 6-7/10 in intensity, sharp in nature and was constant. As per patient, she was getting exertional chest pain as well as SOB for the past few months. She was given loading dose of aspirin, started on heparin drip and given IV morphine at the outside hospital. She has been transferred for possible repeat cath. EKG reviewed outside hospital showed T wave inversions from V4 to V6 and repeat EKG here shows persistent T wave inversions on lateral leads. Her troponins were elevated at 557 at [facility] and recheck here shows 0.07. Patient continues to complain of persistent chest pain however intensity is much reduced. She is currently hemodynamically stable and endorses no shortness of breath or lower extremity swelling at this time. Review of Systems Constitutional: Positive for fatigue. HENT: Negative. Eyes: Negative. Respiratory: Positive for shortness of breath. Cardiovascular: Positive for chest pain. Gastrointestinal: Negative. Endocrine: Negative. Genitourinary: Negative. Skin: Negative. Allergic/Immunologic: Negative. Neurological: Negative. Negative for dizziness, light-headedness and headaches. Hematological: Negative. Psychiatric/Behaviora l: Negative. Past Medical History She has no past medical history on file. Surgical History She has no past surgical history on file. Social History She reports that she has been smoking cigarettes. She started smoking about 41 years ago. She has a 41.00 pack-year smoking history. She does not have any smokeless tobacco history on file. She reports current drug use. Drug: Marijuana. No history on file for alcohol use. Family History Family History No family history on file. Allergies Hay fever and allergy relief and House dust Medications Prescriptions Prior to Admission Medications Prior to Admission Medication Sig Dispense Refill Last Dose albuterol 90 mcg/actuation inhaler Inhale 2 puffs every 6 (six) hours if needed for wheezing. ALPRAZolam (Xanax) 1 mg tablet Take 1 mg by mouth Twice daily at 6am and 6pm. aspirin 81 mg EC tablet Take 81 mg by mouth in the morning. atorvastatin (Lipitor) 80 mg tablet Take 80 mg by mouth in the morning. busPIRone (Buspar) 10 mg tablet Take 10 mg by mouth in the morning and at bedtime. carvedilol (Coreg) 6.25 mg tablet TAKE ONE TABLET BY MOUTH EVERY 12 HOURS WITH FOOD 180 tablet 3 Past Week clopidogrel (Plavix) 75 mg tablet Take 75 mg by mouth in the morning. cyclobenzaprine (Flexeril) 10 mg tablet Take 10 mg by mouth if needed in the morning and at bedtime for muscle spasms. dapagliflozin propanediol (Farxiga) 10 mg Take 10 mg by mouth in the morning. gabapentin (Neurontin) 300 mg capsule Take 300 mg by mouth in the morning, at noon, and at bedtime. pantoprazole (ProtoNix) 40 mg EC tablet Take 40 mg by mouth before breakfast. Do not crush, chew, or split. traZODone (Desyrel) 50 mg tablet Take 50 mg by mouth at bedtime. Last Recorded Vitals Patient Vitals for the past 24 hrs: BP Temp Temp src Pulse Resp SpO2 Height Weight 06/29/23 1300 112/78 -- -- 63 12 98 % -- -- 06/29/23 1113 135/89 37.1 ???C (98.8 ???F) Temporal 63 14 98 % 1.72 m (5' 7.72 ) 75.7 kg (166 lb 14.2 oz) Physical Examination: GENERAL: AOx3, in no acute distress. HEAD: Atraumatic, normocephalic. EYES: IZABELLA, EOMI. NECK: No JVD present. CARDIAC: RRR. No murmur, rubs, or gallops. RESPIRATORY: CTAB, no increased effort of breathing. ABDOMEN: Soft, nontender, nondistended. EXTREMITIES: No lower extremity edema, peripheral pulses are 2+ bilaterally. NEURO: No focal deficits Relevant Lab Results Encounter Date: 06/29/23 ECG 12 lead Result Value Ventricular Rate 61 Atrial Rate 61 MO Interval 150 QRS DURATION 88 QT Interval 476 QTC CALCULATION(BAZETT) 479 P [place] 68 R-[place] 25 T Wave [place] 128 Impression Normal sinus rhythm Right atrial enlargement ST & T wave abnormality, consider anterolateral ischemia Prolonged QT Abnormal ECG When compared with ECG of 02-NOV-2021 07:18, T wave inversion more evident in Lateral Lab Results Component Value Date TROPONINI 0.07 (H) 06/29/2023 No echocardiogram results found for the past 12 months No nuclear medicine results found for the past 12 months Relevant Imaging Results XR lumbar spine 2 or 3 views Narrative: XR LUMBAR SPINE 2-3 VIEWS 06/29/2023 1:40 PM CLINICAL INDICATIONS: Back pain COMPARISON: None. FINDINGS: 3 views of the lumbar spine were obtained. There is no lumbar malalignment or compression deformity. End (more content not included)... Normal [facility] LACTIC ACID WITH 4 HOUR REFL EXon 06-29-2023 LACTATE (MMOL/L) IN SER/PLAS 3.6 mmol/L Critically high 0.5-2.2 [facility] Comment on above: Result Comment: M-MO EVIOUS CRITICAL RESULT Previous result verified on 06/29/2023 1809 on specimen/case [id number] called with component Lactate blood venous for procedure Lactic acid with 4 hour reflex with value 2.7 mmol/L. Performed By: #### L [id number] #### [facility] ([facility]) [address] [place] [address] LACTATE (MMOL/L) IN SER/PLAS 2.7 mmol/L Critically high 0.5-2.2 [facility] Comment on above: Performed By: #### L [id number] #### [facility] ([facility]ER) [address] [place] [address] LACTATE (MMOL/L) IN SER/PLAS 2.5 mmol/L High 0.5-2.2 [facility] Comment on above: Performed By: #### L [id number] ####[facility] ([facility])[address] [place] [address] MAGNESIUMon 06-29-2023 Magnesium [Mass/Vol] 2.1 mg/dL Normal 1.9-2.7 [facility] Comment on above: Performed By: #### L [id number] ####[facility] ([facility])[address] [place] [address] Magnesium [Mass/Vol] 2.2 mg/dL Normal 1.9-2.7 [facility] Comment on above: Performed By: #### L [id number] #### [facility] ([facility]) [address] [place] [address] Magnesium [Mass/Vol] 1.7 mg/dL Low 1.9-2.7 [facility] Comment on above: Performed By: #### L [id number] #### [facility] ([facility]) [address] [place] [address] NURSNOTEon 06-29-2023 NURSNOTE Notified [place] [facility] Hospitalist critical lactate 2.7 no orders received said she would recheck lactate in 4 hrs Normal [facility] PHOSPHORUSon 06-29-2023 Magnesium [Mass/Vol] 3.5 mg/dL Normal 2.5-5.0 [facility] Comment on above: Performed By: #### L [id number] ####[facility] ([facility])[address] [facility] [address] PROTIME-INRon 06-29-2023 INR IN PPP BY COAGULATION ASSAY 0.98 Normal 0.90-1.10 [facility] Comment on above: Result Comment: ACCC P RECOMMENDED INR FOR [facility]ARF[facility]IN THERAPY CONDITION INR PROPHYLAXIS OF VENOUS THROMBOSIS 2-3 (HIGH-RISK SURGERY) TREATMENT OF VENOUS THROMBOSIS 2-3 TREATMENT OF PULMONARY EMBOLISM 2-3 PREVENTION OF SYSTEMIC EMBOLISM: 2-3 ACUTE MYOCARDIAL INFARCTION TISSUE HEART VALVES VALVULAR HEART DISEASE ATRIAL FIBRILLATION RECURRENT SYSTEMIC EMBOLISM MECHANICAL HEART VALVE 2.5-3.5 FROM: ORAL ANTICOAGULANTS. MECHANISM OF ACTION, CLINICAL EFFECTIVENESS, AND OPTIMAL THERAPEUTIC RANGE. CHEST 1995;108:231S-246S. Performed By: #### L [id number] ####[facility] ([facility])[address] [place] [address] PROTHROMBIN TIME (PT) IN PPP BY COAGULATION ASSAY 13.0 Seconds Normal 12.3-14.8 [facility] Comment on above: Performed By: #### L [id number] ####[facility] ([facility])[address] [place] [address] TROPONIN Ion 06-29-2023 Troponin I.cardiac [Mass/Vol] 0.06 ng/mL High 0.00-0.04 [facility] Comment on above: Performed By: #### L [id number] #### [facility] ([facility]) [address] [place] [address] Troponin I.cardiac [Mass/Vol] 0.07 ng/mL High 0.00-0.04 [facility] Comment on above: Performed By: #### L [id number] ####[facility] ([facility])[address] [place] [address] Troponin I.cardiac [Mass/Vol] 0.07 ng/mL High 0.00-0.04 [facility] Comment on above: Performed By: #### L [id number] #### [facility] ([facility]) [address] [place] [address] CBC W MANUAL DIFFon 08-25-19 ANISOCYTOSIS 1+ Normal [facility] Comment on above: Performed By: #### C BCISAIAH ####[facility] [address] [place] [address]Dr. Yilan Yañez ATYPICAL LYMPH # Normal [facility] Comment on above: Performed By: #### C BCISAIAH ####[facility] [address] [place] [id number]. Yilan Yañez ATYPICAL LYMPH % Normal [facility] Comment on above: Performed By: #### C BCISAIAH ####[facility] [address] [place] [address]Dr. Yilan Yañez BAND # 0.2 103/ul Normal 0.0-0.3 [facility] Comment on above: Performed By: #### C ROSARIO ####[facility] [address] [place] [address]Dr. Yilan Yañez BAND % 1 % Normal 0-5 [facility] Comment on above: Performed By: #### C ROSARIO ####[facility] [address] [place], [place] [address]Dr. Yiashley Yañez BASOM # 0.00 103/ul Normal 0.00-0.10 [facility] Comment on above: Performed By: #### C ROSARIO ####[facility] [address] [place], [place] [address]Dr. Nahed Yañez BASOM % 0.0 % Critically low 0.2-2.0 [facility] Comment on above: Performed By: #### C ROSARIO ####[facility] [address] [place] [address]Dr. Yilan Yañez BLAST # Normal [facility] Comment on above: Performed By: #### C ROSARIO ####[facility] [address] [place] [address]Dr. Yilan Yañez BLAST % Normal [facility] Comment on above: Performed By: #### C ROSARIO ####[facility] [address] [place] [address]Dr. Nahed Yañez CORRECTED WBC Normal 4.0-11.[address] [facility] Comment on above: Performed By: #### C ROSARIO ####[facility] [address] [place], [place] [address]Yq. Nahed Yañez EOS # 0.00 103/ul Normal 0.00-0.70 [facility] Comment on above: Performed By: #### C ROSARIO ####[facility] [address] [place] [id number]. Nahed Yañez EOS% 0.0 % Critically low 0.9-7.0 [facility] Comment on above: Performed By: #### C ROSARIO ####[facility] [address] [place] [id number]. Nahed Yañez HCT 33.9 % Critically low 36.0-48.0 [facility] Comment on above: Performed By: #### C ROSARIO ####[facility] [address] [place] [phone]. Nahed Yañez HGB 10.8 g/dl Critically low 12.0-16.0 [facility] Comment on above: Performed By: #### C ROSARIO ####[facility] [address] [place] [phone]. Nahed Yañez HYPOCHROMASIA SLIGHT Normal [facility] Comment on above: Performed By: #### C ROSARIO ####[facility] [address] [place] [phone]. Nahed Yañez LYMPHM # 2.59 103/ul Normal 1.20-3.80 [facility] Comment on above: Performed By: #### C ROSARIO ####[facility] [address] [place] [phone]. Nahed Yañez LYMPHM% 16.0 % Critically low 20.5-60.0 [facility] Comment on above: Performed By: #### C ROSARIO ####[facility] Rjoshbkqlz[address] [place] [phone]. Nahed Yañez MCH 28.5 pg Normal 26.7-34.0 [facility] Comment on above: Performed By: #### C ROSARIO ####[facility] Ypjirssird7073 [place] [phone]. Nahed Yañez MCHC 31.9 g/dl Normal 29.9-35.2 [facility] Comment on above: Performed By: #### C ROSARIO ####[facility] Smpldencad7392 [place] [phone]. Nahed Yañez MCV 89.4 fL Normal 81.0-99.0 [facility] Comment on above: Performed By: #### C ROSARIO ####[facility] Ebzgptmakq4541 [place] [phone]. Nahed Yañez METAMYELOCYTE # Normal [facility] Comment on above: Performed By: #### C ROSARIO ####[facility] Cqmbecxqzs5905 [place] [phone]. Nahed Yañez METAMYELOCYTE % Normal [facility] Comment on above: Performed By: #### C ROSARIO ####[facility] Hzxyssahcj2880 [place] [phone]. Nahed Yañez MONOM# 1.30 103/ul Critically high 0.30-0.80 [facility] Comment on above: Performed By: #### C ROSARIO ####[facility] Zfsnfzayus4678 [place] [phone]. Nahed Yañez MONOM% 8.0 % Normal 1.7-12.0 [facility] Comment on above: Performed By: #### C ROSARIO ####[facility] Nxchazmzpf9180 [place] [phone]. Nahed Yañez MPV 9.8 fL Normal 9.5-13.5 [facility] Comment on above: Performed By: #### C ROSARIO ####[facility] Qgbcypnmpe6480 [place] [phone]. Nahed Yañez MYELOCYTE # Normal [facility] Comment on above: Performed By: #### C ROSARIO ####[facility] Aunywkxqry7388 [place] [phone]. Nahed Yañez MYELOCYTE % Normal [facility] Comment on above: Performed By: #### C ROSARIO ####[facility] Ltfp[address] [place], [place] [address]Dr. Nahed Yañez NRBC Normal [facility] Comment on above: Performed By: #### C ROSARIO ####[facility] Nfuunseohn0152 [place], [place] [address]Cv. Nahed Yañez PLT 302 103/ul Normal 150-450 [facility] Comment on above: Performed By: #### C ROSARIO ####[facility] Itxvwoixqv7377 [place], [place] [address]PhShaun Yañez RBC 3.79 106/ul Critically low 4.20-5.40 [facility] Comment on above: Performed By: #### C ROSARIO ####[facility] Ygikvdrqfr9242 [place], [place] [address]Qr. Nahed Yañez RDW 15.3 % Critically high 11.0-15.0 [facility] Comment on above: Performed By: #### C ROSARIO ####[facility] Esjnhdzouk7802 [place], [place] [address]Lp. Nahed Yañez SEG # 12.15 103/ul Critically high 1.40-6.50 [facility] Comment on above: Performed By: #### C ROSARIO ####[facility] Hhwdniiapz1669 [place], [place] [address]Zl. Nahed Yañez SEG % 75.0 % Normal 43.0-75.0 [facility] Comment on above: Performed By: #### C ROSARIO ####[facility] Xgupjznpvg7558 [place], [place] [address]Qr. Nahed Yañez WBC 16.2 103/ul Critically high 4.0-11.0 [facility] Comment on above: Performed By: #### C ROSARIO ####[facility] Seiicwdsyp6038 [place], [place] [address]RcShaun Nahed Yañez POINT OF CARE GLUCOSEon 08-12 Glucose [Mass/Vol] 221 mg/dL Critically high 74-106 [facility] Comment on above: Performed By: #### P OCGLUC ####[facility] Hlahrfadvl4160 [place], [place] [address]ApShaun Yañez PROF 14(COMP METB)on 023 Albumin [Mass/Vol] 2.2 g/dL Critically low 3.4-5.0 Th [facility] Comment on above: Performed By: #### C RENZO, JUDY ####[facility] Jnhtqzhbde9690 [place] [address]Dr. Nahed Yañez Albumin/Globulin [Mass ratio] 0.6 {ratio} Normal [facility] Comment on above: Performed By: #### C RENZO, JUDY ####[facility] Ulydfndxze9318 [place] [address]Dr. Nahed Yañez ALP [Catalytic activity/Vol] 87 U/L Normal 46-116 [facility] Comment on above: Performed By: #### C RENZO, JUDY ####[facility] Mjeoeybxmp[address] [place], [place] [address]Dr. Nahed Yañez ALT [Catalytic activity/Vol] 17 U/L Normal 14-59 [facility] Comment on above: Performed By: #### C RENZO, JUDY ####[facility] Elozrnxsji5701 [place] [address]Dr. Nahed Yañez Anion gap [Moles/Vol] 9.4 mmol/L Normal [facility] Comment on above: Performed By: #### C RENZO, JUDY ####[facility] Oxnvirjxwt90[address] [place], [place] [address]Dr. Nahed Yañez AST [Catalytic activity/Vol] 13 U/L Critically low 15-37 [facility] Comment on above: Performed By: #### C RENZO, JUDY ####[facility] Xljodcuudu6663 [place] [address]Dr. Nahed Yañez Bilirubin [Mass/Vol] 0.2 mg/dL Normal 0.2-1.0 [facility] Comment on above: Performed By: #### C RENZO, JUDY ####[facility] Dfxktznvkk4280 [place] [address]Dr. Nahed Yañez Calcium [Mass/Vol] 9.1 mg/dL Normal 8.5-10.1 [facility] Comment on above: Performed By: #### C RENZO, JUDY ####[facility] Qvinulnaap0533 [place] [address]Dr. Nahed Yañez Chloride [Moles/Vol] 103 mmol/L Normal 98-107 [facility] Comment on above: Performed By: #### C RENZO, JUDY ####[facility] Aaeaazuinq6205 [place] [address]Dr. Nahed Yañez CO2 [Moles/Vol] 29.1 mmol/L Normal 21.0-32.[address] [facility] Comment on above: Performed By: #### C RENZO, JUDY ####[facility] Cmcpmjeald2919 [place] [address]Dr. Nahed Yañez Creatinine [Mass/Vol] 1.05 mg/dL Critically high 0.55-1.02 [facility] Comment on above: Performed By: #### C RENZO, JUDY ####[facility] Cvsjofvgdj2572 [place] [address]Dr. Nahed Yañez EGFR-AF MALDIVIAN >60 Normal >=[address] [facility] Comment on above: Performed By: #### C RENZO, JUDY ####[facility] Dsyfgakiuu1460 [place] [address]Dr. Nahed Yañez EGFR-NON AF MALDIVIAN 53 mL/min/1.73m2 Critically low >=60 [facility] Comment on above: Performed By: #### C RENZO, JUDY ####[facility] Mrmfymbbzc7272 [place] [address]Dr. Nahed Yañez Globulin (S) [Mass/Vol] 3.5 g/dL Normal [facility] Comment on above: Performed By: #### C RENZO, JUDY ####[facility] Lpecwvqtht9459 [place] [address]Dr. Nahed Yañez Glucose [Mass/Vol] 121 mg/dL Critically high 74-106 T [facility] Comment on above: Performed By: #### C RENZO, JUDY ####[facility] Etxiinfffc8008 [place] [address]Dr. Nahed Yañez Potassium [Moles/Vol] 4.5 mmol/L Normal 3.5-5.1 [facility] Comment on above: Performed By: #### C RENZO, JUDY ####[facility] Hqtmzlxkqy3411 [place] [address]Dr. Nahed Yañez Protein [Mass/Vol] 5.7 g/dL Critically low 6.4-8.2 Th [facility] Comment on above: Performed By: #### C MP, JUDY ####[facility] Dxhxvrnozc5800 [place] [address]Dr. Nahed Yañez Sodium [Moles/Vol] 137 mmol/L Normal 136-145 [facility] Comment on above: Performed By: #### C RENZO, JUDY ####[facility] Wkzmgauabk7133 [place] [address]Dr. Nahed Yañez Urea nitrogen [Mass/Vol] 24.0 mg/dL Critically high 7.0-18.0 [facility] Comment on above: Performed By: #### C RENZO, JUDY ####[facility] Jqzknjspgp[address] [place], [place] [address]Dr. Nahed Yañez Urea nitrogen/Creatinine [Mass ratio] 22.9 mg/mg Normal [facility] Comment on above: Performed By: #### C RENZO, JUDY ####[facility] Tifjuwqvhz[address] [place], [place] [address]Dr. Nahed Otilio THEOPHYLLINEon 08-24-2022 THEOPHYLLINE 18.2 ug/mL Normal 10.0-20.0 [facility] Comment on above: Performed By: #### C RENZO, JUDY ####[facility] Kplqeydphj[address] [place], [place] [address]Dr. Nahed Otilio CBC W MANUAL DIFFon 08-24-19 23 ATYPICAL LYMPH # 0.20 103/ul Normal [facility] Comment on above: Performed By: #### C BCMAN ####[facility] Qajwdbzlpv[address] [place], [place] [address]Dr. Nahed Otilio ATYPICAL LYMPH % 1 % Normal [facility] Comment on above: Performed By: #### C BCMAN ####[facility] Mukzhaigwx7461 [place] [address]Dr. Nahed Yañez BAND # 0.0 103/ul Normal 0.0-0.3 [facility] Comment on above: Performed By: #### C BCISAIAH ####[facility] Ocvqxozzqq4367 [place] [phone]. Yiashley Yañez BAND % 0 % Normal 0-5 [facility] Comment on above: Performed By: #### C BCISAIAH ####[facility] Tydeobwwdr8186 [place] [phone]. Yiashley Yañez BASOM # 0.00 103/ul Normal 0.00-0.10 [facility] Comment on above: Performed By: #### C BCISAIAH ####[facility] Hwaexpjqvi5010 [place] [address]Dr. Yiashley Yañez BASOM % 0.0 % Critically low 0.2-2.0 [facility] Comment on above: Performed By: #### C ROSARIO ####[facility] Miuflrtxqp4019 [place] [address]Dr. Yilan Yañez BLAST # Normal [facility] Comment on above: Performed By: #### C ROSARIO ####[facility] Tsnqhgxqqq3566 [place] [address]Dr. Yilan Yañez BLAST % Normal [facility] Comment on above: Performed By: #### C ROSARIO ####[facility] Fkpezvmykp[address] [place], [place] [address]Dr. Nahed Yañez CORRECTED WBC Normal 4.0-11.[address] [facility] Comment on above: Performed By: #### C BCISAIAH ####[facility] Bxhpenavaq4379 [place] [address]Dr. Yiashley Yañez EOS # 0.00 103/ul Normal 0.00-0.70 [facility] Comment on above: Performed By: #### C BCISAIAH ####[facility] Jkyhu[address]mxh[address] [place], [place] [address]Dr. Yiashely Yañez EOS% 0.0 % Critically low 0.9-7.0 [facility] Comment on above: Performed By: #### C BCISAIAH ####[facility] Ojqfvfcnzz4140 [place] [address]Dr. Yilan Yañez HCT 33.5 % Critically low 36.0-48.0 The [facility] Comment on above: Performed By: #### C ROSARIO ####[facility] Eqtlrxveio0841 [place], [place] [address]Vs. Nahed Yañez HGB 10.7 g/dl Critically low 12.0-16.0 [facility] Comment on above: Performed By: #### C ROSARIO ####[facility] Fgrzcctsbd4266 [place], [place] [address]Op. Nahed Yañez LYMPHM # 1.39 103/ul Normal 1.20-3.80 [facility] Comment on above: Performed By: #### C ROSARIO ####[facility] Aappwgwrny8794 [place], [place] [address]Ll. Nahed Yañez LYMPHM% 7.0 % Critically low 20.5-60.0 [facility] Comment on above: Performed By: #### C ROSARIO ####[facility] Ygwnrgxxkv3192 [place], [place] [address]Yp. Nahed Yañez MCH 28.5 pg Normal 26.7-34.0 [facility] Comment on above: Performed By: #### C ROSARIO ####[facility] Jdeblvqnzf2545 [place], [place] [address]Dl. Nahed Yañez MCHC 31.9 g/dl Normal 29.9-35.2 [facility] Comment on above: Performed By: #### C ROSARIO ####[facility] Kbrmesdhev5833 [place], [place] [address]Cp. Nahed Yañez MCV 89.1 fL Normal 81.0-99.0 [facility] Comment on above: Performed By: #### C ROSARIO ####[facility] Zbvbwshscm5934 [place], [place] [address]Yl. Nahed Yañez METAMYELOCYTE # Normal [facility] Comment on above: Performed By: #### C ROSARIO ####[facility] Sumcultuly7677 [place], [place] [address]Hr. Nahed Yañez METAMYELOCYTE % Normal [facility] Comment on above: Performed By: #### C ROSARIO ####[facility] Rzzxwlvfaf0849 [place] [phone]. Nahed Yañez MONOM# 0.40 103/ul Normal 0.30-0.80 [facility] Comment on above: Performed By: #### C ROSARIO ####[facility] Snfzjzpzwl4617 [place] [address]Dr. Nahed Yañez MONOM% 2.0 % Normal 1.7-12.0 [facility] Comment on above: Performed By: #### C ROSARIO ####[facility] Bjrjfkpjvd7291 [place] [address]Dr. Nahed Yañez MPV 10.0 fL Normal 9.5-13.5 [facility] Comment on above: Performed By: #### C ROSARIO ####[facility] Rxjwtnyrom9[address] [place], [place] [address]Dr. Nahed Yañez MYELOCYTE # Normal [facility] Comment on above: Performed By: #### C ROSARIO ####[facility] Zljfpnchzu[address] [place], [place] [address]Dr. Nahed Yañez MYELOCYTE % Normal [facility] Comment on above: Performed By: #### C ROSARIO ####[facility] Hjeyddrmnz[address] [place], [place] [address]Dr. Nahed Yañez NRBC Normal [facility] Comment on above: Performed By: #### C ROSARIO ####[facility] Xdnpbmgmxl1807 [place] [phone]. Nahed Yañez PLT 338 103/ul Normal 150-450 [facility] Comment on above: Performed By: #### C ROSARIO ####[facility] Ixnbngnsaq0[address] [place], [place] [address]Dr. Nahed Yañez RBC 3.76 106/ul Critically low 4.20-5.40 [facility] Comment on above: Performed By: #### C ROSARIO ####[facility] Bvxbaduzur[address] [place], [place] [address]Dr. Nahed Yañez RDW 15.3 % Critically high 11.0-15.0 [facility] Comment on above: Performed By: #### C ROSARIO ####[facility] Vusfhkvkao7232 [place] [address]Dr. Nahed Yañez SEG # 17.91 103/ul Critically high 1.40-6.50 [facility] Comment on above: Performed By: #### C BCMAN ####[facility] Dgrmnypdjp2910 [place] [phone]. Nahed Yañez SEG % 90.0 % Critically high 43.0-75.0 [facility] Comment on above: Performed By: #### C BCMAN ####[facility] Labplyrqlp6452 [place] [phone]. Nahed Otilio WBC 19.9 103/ul Critically high 4.0-11.0 [facility] Comment on above: Performed By: #### C BCMAN ####[facility] Blxmxydaec4675 [place] [address]Dr. Nahed Yañez POINT OF CARE GLUCOSEon 08-12 Glucose [Mass/Vol] 200 mg/dL Critically high 74-106 [facility] Comment on above: Performed By: #### P OCGLUC ####[facility] Rgedottzrh0213 [place] [address]Dr. Nahed Yañez Glucose [Mass/Vol] 131 mg/dL Critically high 74-106 [facility] Comment on above: Performed By: #### P OCGLUC ####[facility] Hnmcpkwjjt0489 [place] [address]Dr. Nahed Otilio Glucose [Mass/Vol] 176 mg/dL Critically high 74-106 [facility] Comment on above: Performed By: #### P OCGLUC ####[facility] Hjnsxexavx0656 [place] [address]Dr. Nahed Yañez PROF 14(COMP METB)on 023 Albumin [Mass/Vol] 2.2 g/dL Critically low 3.4-5.0 [facility] Comment on above: Performed By: #### T RAFITA CMP ####[facility] Bcugivedia4421 [place] [address]Dr. Nahed Yañez Albumin/Globulin [Mass ratio] 0.6 {ratio} Normal [facility] Comment on above: Performed By: #### Nydia ELLER, CMP ####[facility] Pqepmcukkv8390 [place] [address]Dr. Nahed Yañez ALP [Catalytic activity/Vol] 101 U/L Normal 46-116 [facility] Comment on above: Performed By: #### Nydia ELLER, CMP ####[facility] Kztfqqrfff4394 [place] [address]Dr. Nahed Otilio ALT [Catalytic activity/Vol] 19 U/L Normal 14-59 [facility] Comment on above: Performed By: #### Nydia ELLER, CMP ####[facility] Gnglkqqzes6998 [place] [address]Dr. Rosemarieashley Otilio Anion gap [Moles/Vol] 12.0 mmol/L Normal [facility] Comment on above: Performed By: #### Nydia ELLER CMP ####[facility] Wfpwgedcov8151 [place] [address]Dr. Rosemarieashley Yañez AST [Catalytic activity/Vol] 14 U/L Critically low 15-37 [facility] Comment on above: Performed By: #### Nydia ELLER CMP ####[facility] Jskvwfikof2177 [place] [address]Dr. Nahde Otilio Bilirubin [Mass/Vol] 0.2 mg/dL Normal 0.2-1.0 [facility] Comment on above: Performed By: #### Nydia ELLER, CMP ####[facility] Leubipzvbh2115 [place] [address]Dr. Nahed Yañez Calcium [Mass/Vol] 9.5 mg/dL Normal 8.5-10.1 [facility] Comment on above: Performed By: #### Nydia ELLER, CMP ####[facility] Vsnxceskjq5951 [place] [address]Dr. Nahed Yañez Chloride [Moles/Vol] 105 mmol/L Normal 98-107 [facility] Comment on above: Performed By: #### Nydia ELLER, CMP ####[facility] Nfxsjeibxd9509 [place] [phone]. Nahed Yañez CO2 [Moles/Vol] 27.9 mmol/L Normal 21.0-32.0 [facility] Comment on above: Performed By: #### yNdia ELLER CMP ####[facility] Yfunhsqabf0388 [place] [address]Dr. Nahed Yañez Creatinine [Mass/Vol] 1.08 mg/dL Critically high 0.55-1.02 [facility] Comment on above: Performed By: #### Nydia ELLER CMP ####[facility] Wzotpctucx1852 [place] [address]Dr. Nahed Yañez EGFR-AF MALDIVIAN >60 Normal >=60 [facility] Comment on above: Performed By: #### Nydia ELLER CMP ####[facility] Eucqpxpsep[address] [place], [place] [address]Dr. Nahed Yañez EGFR-NON AF MALDIVIAN 52 mL/min/1.73m2 Critically low >=60 [facility] Comment on above: Performed By: #### Nydia ELLER CMP ####[facility] Tnntgbxhqy[address] [place], [place] [address]Dr. Nahed Yañez Globulin (S) [Mass/Vol] 3.7 g/dL Normal [facility] Comment on above: Performed By: #### Nydia ELLER CMP ####[facility] Xqyxcydhnm290[address] [place], [place] [address]Dr. Nahed Yañez Glucose [Mass/Vol] 182 mg/dL Critically high 74-106 [facility] Comment on above: Performed By: #### Nydia ELLER CMP ####[facility] Ktwkgntgzr432[address] [place], [place] [address]Dr. Nahed Yañez Potassium [Moles/Vol] 3.9 mmol/L Normal 3.5-5.1 [facility] Comment on above: Performed By: #### Nydia ELLER CMP ####[facility] Tyjxlxvnqp7950[address] [place], [place] [address]Dr. Nahed Yañez Protein [Mass/Vol] 5.9 g/dL Critically low 6.4-8.2 Th [facility] Comment on above: Performed By: #### Nydia ELLER CMP ####[facility] Ucrhapqyhl878[address] [place], [place] [address]Dr. Nahed Yañez Sodium [Moles/Vol] 141 mmol/L Normal 136-145 [facility] Comment on above: Performed By: #### Nydia ELLER, CMP ####[facility] Rycbbyqajb5264[address] [place], [place] [address]Dr. Nahed Yañez Urea nitrogen [Mass/Vol] 20.0 mg/dL Critically high 7.0-18.0 [facility] Comment on above: Performed By: #### Nydia ELLER, CMP ####[facility] Gaifiafjlq803[address] [place], [place] [address]Dr. Nahed Yañez Urea nitrogen/Creatinine [Mass ratio] 18.5 mg/mg Normal [facility] Comment on above: Performed By: #### Nydia ELLER CMP ####[facility] Atorpnvhwo077[address] [place], [place] [address]Dr. Nahed Yañez THEOPHYLLINEon 08-23-2022 THEOPHYLLINE 22.9 ug/mL Critically high 10.0-20.0 [facility] Comment on above: Performed By: #### Nydia ELLER CMP ####[facility] Azmxaakydw35[address] [place], [place] [address]Dr. Nahed Yañez CBC AUTO DIFFon 08-22-2022 BASO # 0.0 103/ul Normal 0.0-0.1 [facility] Comment on above: Performed By: #### C BC ####[facility] Mvujjlpcwb24[address] [place], [place] [address]Dr. Nahed Otilio Basophils/100 WBC (Bld) 0.1 % Critically low 0.2-2.0 [facility] Comment on above: Performed By: #### C BC ####[facility] Xwaqylnbdt[address] [place], [place] [address]Dr. Nahed Otilio EO # 0.0 103/ul Normal 0.0-0.7 [facility] Comment on above: Performed By: #### C BC ####[facility] Bxhygueklg[address] [place], [place] [address]Dr. Nahed Otilio Eosinophils/100 WBC (Bld) 0.0 % Critically low 0.9-7.0 [facility] Comment on above: Performed By: #### C BC ####[facility] Asyhnhzlox5727 [place] [address]Dr. Nahed Yañez Erythrocyte distribution width (RBC) [Ratio] 15.1 % Critically high 11.0-15.0 [facility] Comment on above: Performed By: #### C BC ####[facility] Qipmrrracw6601 [place] [address]Dr. Nahed Yañez Hematocrit (Bld) [Volume fraction] 31.4 % Critically low 36.0-48.0 [facility] Comment on above: Performed By: #### C BC ####[facility] Ezalfqpkws654[address] [place], [place] [address]Dr. Nahed Yañez Hemoglobin (Bld) [Mass/Vol] 10.2 g/dL Critically low 12.0-16.0 [facility] Comment on above: Performed By: #### C BC ####[facility] Hgmoevqkcz067[address] [place], [place] [address]Dr. Nahed Yañez IG # 0.08 10e3/ul Critically high 0.00-0.03 [facility] Comment on above: Performed By: #### C BC ####[facility] Oqlplhyuur23[address] [place], [place] [address]Dr. Nahed Yñaez IG % 0.6 % Critically high 0.0-0.5 [facility] Comment on above: Performed By: #### C BC ####[facility] Abvuglugol[address] [place], [place] [address]Dr. Nahed Yañez LYMPH # 0.9 103/ul Critically low 1.2-3.8 [facility] Comment on above: Performed By: #### C BC ####[facility] Vnzlnsqqpx648[address] [place], [place] [address]Dr. Nahed Yañez Lymphocytes/100 WBC (Bld) 6.1 % Critically low 20.5-60.0 [facility] Comment on above: Performed By: #### C BC ####[facility] Avolvuztpp47[address] [place], [place] [address]Dr. Rosemarieashley Yañez MANUAL DIFF REQ NO Normal [facility] Comment on above: Performed By: #### C BC ####[facility] Dfmhztdmte5467 [place] [phone]. Nahed Yañez MCH (RBC) [Entitic mass] 28.3 pg Normal 26.7-34.0 [facility] Comment on above: Performed By: #### C BC ####[facility] [address]avhwhbtn[address] [place] [id number]. Nahed Yañez MCHC (RBC) [Mass/Vol] 32.5 g/dL Normal 29.9-35.2 [facility] Comment on above: Performed By: #### C BC ####[facility] W[address]lofjh[address] [place] [address]Dr. Nahed Otilio MCV (RBC) [Entitic vol] 87.0 fL Normal 81.0-99.0 [facility] [place] Comment on above: Performed By: #### C BC ####[facility] Kzplyrxvdj27[address] [place], [place] [address]Dr. Nahed Otilio MONO # 0.7 103/ul Normal 0.3-0.8 [facility] [place] Comment on above: Performed By: #### C BC ####[facility] Pryvylsaqk170[address] [place], [place] [address]Dr. Nahed Otilio Monocytes/100 WBC (Bld) 5.1 % Normal 1.7-12.0 [facility] [place] Comment on above: Performed By: #### C BC ####[facility] Znqpabjnrm[address] [place] [address]Dr. Nahed Yañez NEUT # 12.2 103/ul Critically high 1.4-6.[address] [facility] Comment on above: Performed By: #### C BC ####[facility] Wmpeamksns[address] [place], [place] [id number] Rosemarieashley Yañez Neutrophils/100 WBC (Bld) 88.1 % Critically high 43.0-75.0 [facility] [place] Comment on above: Performed By: #### C BC ####[facility] Xpascifgrf227[address] [place], [place] [address]DrShaun Rosemarieashley Yañez Platelet mean volume (Bld) [Entitic vol] 10.2 fL Normal 9.5-13.5 [facility] [place] Comment on above: Performed By: #### C BC ####[facility] [address]zrqra[address] [place] [id number]. Nahed Yañez PLT 271 103/ul Normal 150-450 [facility] [place] Comment on above: Performed By: #### C BC ####[facility] Zdizkgbwio5[address] [place] [id number]. Nahed Yañez RBC 3.61 106/ul Critically low 4.20-5.40 [facility] Comment on above: Performed By: #### C BC ####[facility] Ujpumuzcbz[address] [place] [id number]. Nahed Yañez WBC 13.9 103/ul Critically high 4.0-11.0 [facility] Comment on above: Performed By: #### C BC ####[facility] Yyhucishhe[address] [place] [id number]. Nahed Yañez CULTURE URINEon 08-22-2022 CULTURE URINE Culture Observations : LIGHT GROWTH OF MIXED GENITAL MIGUEL. NO POTENTIAL PATHOGENS SEEN. Normal [facility] [place] Comment on above: Performed By: #### U RCX ####[facility] Tpuwdujljx192[address] [place], [place] [address]Dr. Nahed Yañez POINT OF CARE GLUCOSEon 08-12 Glucose [Mass/Vol] 252 mg/dL Critically high 74-106 [facility] Comment on above: Performed By: #### P OCGLUC ####[facility] Vubfxczrts24[address] [place] [id number]. Nahed Yañez Glucose [Mass/Vol] 293 mg/dL Critically high 74-106 [facility] Comment on above: Performed By: #### P OCGLUC ####[facility] Lrbqzdxhrd9533[address] [place], [place] [address]Dr. Nahed Yañez Glucose [Mass/Vol] 292 mg/dL Critically high 74-106 [facility] Comment on above: Performed By: #### P OCGLUC ####[facility] Hbzuztuvow527[address] [place], [place] [address]DrShaun Yañez PROF 14(COMP METB)on 023 Albumin [Mass/Vol] 2.1 g/dL Critically low 3.4-5.0 [facility] Comment on above: Performed By: #### C MP ####[facility] Ejyghlyfrr[address] [place] [address]Dr. Nahed Yañez Albumin/Globulin [Mass ratio] 0.5 {ratio} Normal [facility] Comment on above: Performed By: #### C MP ####[facility] Hxqnzsxcfw2723[address] [place], [place] [address]Dr. Nahed Yañez ALP [Catalytic activity/Vol] 92 U/L Normal 46-116 [facility] Comment on above: Performed By: #### C MP ####[facility] Joytddxedp434[address] [place], [place] [address]Dr. Nahed Yañez ALT [Catalytic activity/Vol] 19 U/L Normal 14-59 [facility] Comment on above: Performed By: #### C MP ####[facility] Ckqexyiawq814[address] [place], [place] [address]Dr. Nahed Yañez Anion gap [Moles/Vol] 15.9 mmol/L Normal [facility] Comment on above: Performed By: #### C MP ####[facility] Aaqggntknu9937[address] [place], [place] [address]Dr. Nahed Yañez AST [Catalytic activity/Vol] 8 U/L Critically low 15-37 [facility] Comment on above: Performed By: #### C MP ####[facility] Cyubznnqez3349[address] [place], [place] [address]Dr. Nahed Yañez Bilirubin [Mass/Vol] 0.3 mg/dL Normal 0.2-1.0 [facility] Comment on above: Performed By: #### C MP ####[facility] Vwznhblces7127[address] [place], [place] [address]Dr. Nahde Yañez Calcium [Mass/Vol] 9.4 mg/dL Normal 8.5-10.1 [facility] Comment on above: Performed By: #### C MP ####[facility] Zmbbtfvfbd267186 [address] [place], [place] [address]Dr. Nahed Yañez Chloride [Moles/Vol] 101 mmol/L Normal 98-107 [facility] Comment on above: Performed By: #### C MP ####[facility] Dgqwjdwdox5368 [place] [address]Dr. Nahed Otilio CO2 [Moles/Vol] 22.5 mmol/L Normal 21.0-32.0 [facility] Comment on above: Performed By: #### C MP ####[facility] Hhhldgfiej713[address] [place], [place] [address]Dr. Nahed Otilio Creatinine [Mass/Vol] 1.16 mg/dL Critically high 0.55-1.02 [facility] Comment on above: Performed By: #### C MP ####[facility] Axiwsctokx6185[address] [place], [place] [address]Dr. Nahed Yañez EGFR-AF MALDIVIAN 58 mL/min/1.73m2 Critically low >=60 [facility] [place] Comment on above: Performed By: #### C MP ####[facility] Xvksgcnusn3412[address] [place], [place] [address]Dr. Nahed Otilio EGFR-NON AF MALDIVIAN 47 mL/min/1.73m2 Critically low >=60 [facility] Comment on above: Performed By: #### C MP ####[facility] Gikfzfwfam595[address] [place], [place] [address]Dr. Nahed Yañez Globulin (S) [Mass/Vol] 4.2 g/dL Normal [facility] Comment on above: Performed By: #### C MP ####[facility] Fsoftmknni232[address] [place], [place] [address]Dr. Nahed Yañez Glucose [Mass/Vol] 409 mg/dL Critically high 74-106 [facility] Comment on above: Performed By: #### C MP ####[facility] Rqujkftuuo404186 [address] [place], [place] [address]Dr. Nahed Yañez Potassium [Moles/Vol] 3.4 mmol/L Critically low 3.5-5.1 [facility] Comment on above: Performed By: #### C MP ####[facility] Dbgtvfxvpw2015[address] [place], [place] [address]Dr. Nahed Yañez Protein [Mass/Vol] 6.3 g/dL Critically low 6.4-8.2 [facility] e [facility] Comment on above: Performed By: #### C MP ####[facility] Prslojxfwc605[address] [place], [place] [address]Dr. Nahed Yañez Sodium [Moles/Vol] 136 mmol/L Normal 136-145 [facility] Comment on above: Performed By: #### C MP ####[facility] Cvnkffvwfg939[address] [place], [place] [address]Dr. Nahed Yañez Urea nitrogen [Mass/Vol] 16.0 mg/dL Normal 7.0-18.0 [facility] Comment on above: Performed By: #### C MP ####[facility] Tmbalhryxa8799[address] [place], [place] [address]Dr. Nahed Yañez Urea nitrogen/Creatinine [Mass ratio] 13.8 mg/mg Normal [facility] Comment on above: Performed By: #### C MP ####[facility] Vbljrkdhcw212[address] [place], [place] [address]Dr. Nahed Yañez THEOPHYLLINEon 08-22-2022 THEOPHYLLINE 13.4 ug/mL Normal 10.0-20.0 [facility] Comment on above: Performed By: #### T RAFITA ####[facility] Lzjkgfghja0435[address] [place], [place] [address]Dr. Nahed Yañez UA RANDOM W/MICROSCOPICon BACTERIA NONE SEEN Normal NONE SEEN [facility] Comment on above: Performed By: #### U AMIC ####[facility] Wugwndxqwy6987[address] [place], [place] [address]Dr. Nahed Yañez Bilirubin Ql (U) Negative Normal NEGATIVE [facility] Comment on above: Performed By: #### U AMIC ####[facility] Kivxfomoqy6625[address] [place], [place] [address]Dr. Nahed Yañez CAST NONE SEEN Normal NONE SEEN [facility] Comment on above: Performed By: #### U AMIC ####[facility] Fghqeabxuu3638[address] [place], [place] [address]Dr. Nahed Yañez Clarity (U) CLEAR Normal CLEAR [facility] Comment on above: Performed By: #### U AMIC ####[facility] Dpvlctvoyd8[address] [place] [address]Dr. Nahed Yañez Color (U) LT. YELLOW Normal YELLOW [facility] Comment on above: Performed By: #### U AMIC ####[facility] [address]wjhbg[address] [place] [id number]. Nahed Yañez Crystals LM Nom (Urine sed) NONE SEEN Normal NONE SEEN [facility] Comment on above: Performed By: #### U AMIC ####[facility] Doxnktucsa[address] [place] [address]Dr. Nahed Yañez Epithelial cells LM Ql (Urine sed) RARE Normal NONE SEEN /RARE [facility] Comment on above: Performed By: #### U AMIC ####[facility] Pdtimdleaq5[address] [place] [address]Dr. Nahed Yañez Glucose Ql (U) 100 mg/dl Abnormal NEGATIVE The [facility] Comment on above: Performed By: #### U AMIC ####[facility] Tlscgebwaz99[address] [place], [place] [address]Dr. Yiashley Yañez Hemoglobin Ql (U) Negative Normal NEGATIVE The [facility] Comment on above: Performed By: #### U AMIC ####[facility] Dgnoqbjavu6[address] [place], [place] [address]Dr. Yiashley Yañez Ketones Ql (U) Negative Normal NEGATIVE The [facility] Comment on above: Performed By: #### U AMIC ####[facility] Fsnwpdktkg405[address] [place], [place] [address]Dr. Yilan Yañez LEUKOCYTES Negative Normal NEGATIVE [facility] Comment on above: Performed By: #### U AMIC ####[facility] Taulazemkt[address] [place] [address]Dr. Yilan Yañez MUCOUS NONE SEEN Normal NONE SEEN [facility] Comment on above: Performed By: #### U AMIC ####[facility] Dcaxgybsgm6007 [place] [address]Dr. Yilan Yañez Nitrite Ql (U) Negative Normal NEGATIVE The [facility] Comment on above: Performed By: #### U AMIC ####[facility] Qkysmtecba0770 [place] [address]Dr. Nahed Yñaez pH (U) 5.5 [pH] Normal 5-9 [facility] Comment on above: Performed By: #### U AMIC ####[facility] Qpokoicspb2038 [place] [address]Dr. Nahed Yañez RBC NONE SEEN Abnormal 0-2 [facility] Comment on above: Performed By: #### U AMIC ####[facility] Jxiuojjgpv9607 [place] [address]Dr. Nahed Yañez SPEC GRAVITY 1.020 Normal 1.005-<=1.02 5 [facility] Comment on above: Performed By: #### U AMIC ####[facility] Ruonxbfveg574[address] [place], [place] [address]Dr. Nahed Yañez UA PROTEIN Negative Normal NEGATIVE/ TRACE [facility] Comment on above: Performed By: #### U AMIC ####[facility] Rqozmjzbiu139[address] [place], [place] [address]Dr. Nahed Yañez Urobilinogen Qn (U) 0.2 {Alem'U}/dL Normal 0.2 - 1. 0 [facility] Comment on above: Performed By: #### U AMIC ####[facility] Mgqzomltbv124[address] [place], [place] [address]Dr. Nahed Yañez WBC NONE SEEN Normal NONE SEEN [facility] Comment on above: Performed By: #### U AMIC ####[facility] Lkfdwwbubf539[address] [place], [place] [address]Dr. Nahed Yañez BLOOD GASES BTYon 08-21-2022 02 MODE ROOM AIR Normal [facility] Comment on above: Performed By: #### A BG ####[facility] Rqqmbiftkb9834[address] [place], [place] [address]Dr. Nahed Yañez ALLENS TEST Positive Normal [facility] Comment on above: Performed By: #### A BG ####[facility] Nedsjvnyky[address] [place], [place] [address]Dr. Nahed Yañez Base excess Calc (Bld) [Moles/Vol] 3.2 mmol/L Critically high -2.0-2.0 [facility] Comment on above: Performed By: #### A BG ####[facility] Brgpysgvjd2635 [place] [address]Dr. Nahed Yañez BIPAP PRESSURE Normal The [facility] Comment on above: Performed By: #### A BG ####[facility] Jzssfjhqef11[address] [place] [address]Dr. Nahed Yañez CPAP Normal [facility] Comment on above: Performed By: #### A BG ####[facility] Ztlhprlhii315[address] [place], [place] [address]Dr. Nahed Yañez FIO2 Normal [facility] Comment on above: Performed By: #### A BG ####[facility] Eewljnwksf100[address] [place], [place] [address]Dr. Nahed Yañez HCO3 (Bld) [Moles/Vol] 26.8 mmol/L Critically high 22.0-26 .0 [facility] Comment on above: Performed By: #### A BG ####[facility] Bfzsptcmnv77[address] [place], [place] [address]Dr. Nahed Yañez LPM Normal [facility] Comment on above: Performed By: #### A BG ####[facility] Svmgvqvtnq647[address] [place], [place] [address]Dr. Nahed Yañez MINUTE VOLUME Normal [facility] Comment on above: Performed By: #### A BG ####[facility] Coidphkmvw9289[address] [place], [place] [address]Dr. Nahed Yañez Oxygen (Bld) [Partial pressure] 55.1 mm[Hg] Critically low 80.0-100.0 [facility] Comment on above: Performed By: #### A BG ####[facility] Hqspppdsoq026[address] [place], [place] [address]Dr. Nahed Yañez Oxygen saturation in Blood 90.2 % Critically low 95.0-100.0 [facility] Comment on above: Performed By: #### A BG ####[facility] Bnbcpkyzty604[address] [place], [place] [address]Dr. Nahed Yañez PCO2 36.7 mmHg Normal 35.0-45.0 [facility] Comment on above: Performed By: #### A BG ####[facility] Veywupzyke[address] [place] [address]Dr. Nahed Yañez [facility] Comment on above: Performed By: #### A BG ####[facility] Gbbblfcrgx7791 [place] [address]Dr. Nahed Yañez pH (Bld) 7.472 [pH] Critically high 7.350-7.450 [facility] Comment on above: Performed By: #### A BG ####[facility] Vbrukgkugp7[address] [place] [address]Dr. Nahed Yañez [facility] Comment on above: Performed By: #### A BG ####[facility] Qkiuizchoo835[address] [place], [place] [address]Dr. Nahed Yañez [facility] Comment on above: Performed By: #### A BG ####[facility] Ewojrayjvh046[address] [place], [place] [address]Dr. Nahed Yañez PUNCTURE SITE LR Normal [facility] Comment on above: Performed By: #### A BG ####[facility] Afzbxjvlic0687[address] [place], [place] [address]Dr. Nahed Yañez [facility] Comment on above: Performed By: #### A BG ####[facility] Mrfbvjnqqc716[address] [place], [place] [address]Dr. Nahed Yañez [facility] Comment on above: Performed By: #### A BG ####[facility] Ahfdcmepme[address] [place] [address]Dr. Nahed Yaeñz [facility] Comment on above: Performed By: #### A BG ####[facility] Mdhlednfts68[address] [place], [place] [address]Dr. Nahed Yañez BNPon 08-21-2022 Natriuretic peptide B (Bld) [Mass/Vol] 131.0 pg/mL Normal <=900.0 [facility] Comment on above: Performed By: #### B JEWEL BEARING DRILLER ####[facility] Dmkcbdcmuo2516 [place] [phone]. Nahed Yañez CARDIAC FRANCISCO 3-6on 3 CK [Catalytic activity/Vol] 17 U/L Critically low 26-192 [facility] Comment on above: Performed By: #### C MREP ####[facility] Rvzujdqkrf2155 [place] [phone]. Nahed Yañez CK.MB [Mass/Vol] ng/mL Normal <=3.[address] [facility] Comment on above: Performed By: #### C MREP ####[facility] Gyhsvmwufp[address] [place], [place] [address]Dr. Nahed Yañez HSTROP 25.1 pg/mL Normal 4.0-51.3 [facility] Comment on above: Result Comment: CUT- OFF POINTS HAVE BEEN ESTABLISHED BASED ON THE FOURTH UNIVERSAL DEFINITIONS OF MYOCARDIALINFARCTION. THE UPPER REFERENCE LIMIT (URL) OF TROPONIN, DEFINED THE 99TH PERCENTILE OFcTnI DISTRIBUTION IN A REFERENCE POPULATION, HAS BEEN CONFIRMED THE DECISION THRESHOLDFOR [place] DIAGNOSIS. Performed By: #### C MREP ####[facility] Ksjxbvbxef[address] [place], [place] [address]Dr. Nahed Yañez CARDIAC FRANCISCO ADMITon 023 CK [Catalytic activity/Vol] 39 U/L Normal 26-192 [facility] Comment on above: Performed By: #### ERICK Ordonez MP ####[facility] Nggrpdkbsa7[address] [place] [id number]. Nahed Yañez CK.MB [Mass/Vol] ng/mL Normal <=3.[address] [facility] Comment on above: Performed By: #### B RENZO, CMADM ####[facility] Jzfmbfyjau50[address] [place] [phone]. Nahed Yañez HSTROP 24.4 pg/mL Normal 4.0-51.3 [facility] Comment on above: Result Comment: CUT- OFF POINTS HAVE BEEN ESTABLISHED BASED ON THE FOURTH UNIVERSAL DEFINITIONS OF MYOCARDIALINFARCTION. THE UPPER REFERENCE LIMIT (URL) OF TROPONIN, DEFINED THE 99TH PERCENTILE OFcTnI DISTRIBUTION IN A REFERENCE POPULATION, HAS BEEN CONFIRMED THE DECISION THRESHOLDFOR [place] DIAGNOSIS. Performed By: #### B RENZO CMADM ####[facility] Dxzmkeyrjz7148 [place] [phone]. Nahed Otilio ANDRE 48 ng/mL Normal 9-82 [facility] Comment on above: Performed By: #### B ERICK MULLER ####[facility] Hcvltrxlpq7[address] [place] [phone]. Nahed Yañez CBC AUTO DIFFon 08-21-2022 BASO # 0.0 103/ul Normal 0.0-0.1 [facility] Comment on above: Performed By: #### C BC ####[facility] Bddkwmjhcl224[address] [place], [place] [address]Dr. Nahed Yañez Basophils/100 WBC (Bld) 0.2 % Normal 0.2-2.0 [facility] Comment on above: Performed By: #### C BC ####[facility] Zgvbtgpsym[address] [place], [place] [address]Dr. Nahed Yañez EO # 0.3 103/ul Normal 0.0-0.7 [facility] Comment on above: Performed By: #### C BC ####[facility] Zvlhwxgdkx08[address] [place], [place] [address]Dr. Nahed Yañez Eosinophils/100 WBC (Bld) 1.5 % Normal 0.9-7.0 [facility] Comment on above: Performed By: #### C BC ####[facility] Ystywhgcpl43[address] [place], [place] [address]Dr. Nahed Yañez Erythrocyte distribution width (RBC) [Ratio] 15.0 % Normal 11.0-15.0 [facility] Comment on above: Performed By: #### C BC ####[facility] Zxhrhmoshn7440[address] [place], [place] [address]Dr. Nahed Yañez Hematocrit (Bld) [Volume fraction] 41.4 % Normal 36.0-48.0 [facility] Comment on above: Performed By: #### C BC ####[facility] Lsxejylfbb[address] [place], [place] [address]Dr. Nahed Yañez Hemoglobin (Bld) [Mass/Vol] 13.5 g/dL Normal 12.0-16.0 [facility] Comment on above: Performed By: #### C BC ####[facility] Sjbvpdltrh[address] [place] [phone]. Nahed Yañez IG # 0.18 10e3/ul Critically high 0.00-0.03 [facility] Comment on above: Performed By: #### C BC ####[facility] Fnvngjoqhm9818 [place] [phone]. Nahed Yañez IG % 1.0 % Critically high 0.0-0.5 [facility] Comment on above: Performed By: #### C BC ####[facility] Zlktdfgnaj26[address] [place] [address]Dr. Nahed Yañez LYMPH # 2.5 103/ul Normal 1.2-3.8 [facility] Comment on above: Performed By: #### C BC ####[facility] Ojxvtfecfe9[address] [place] [address]Dr. Nahed Yañez Lymphocytes/100 WBC (Bld) 14.0 % Critically low 20.5-60.0 [facility] Comment on above: Performed By: #### C BC ####[facility] Dleuxlpxtk15[address] [place] [id number] Yañez MANUAL DIFF REQ NO Normal [facility] Comment on above: Performed By: #### C BC ####[facility] Hgczorjfka5[address] [place] [phone]. Nahed Yañez MCH (RBC) [Entitic mass] 28.5 pg Normal 26.7-34.0 [facility] Comment on above: Performed By: #### C BC ####[facility] Pyictnuxiq[address] [place] [phone]. Rosemarieashley Yañez MCHC (RBC) [Mass/Vol] 32.6 g/dL Normal 29.9-35.2 [facility] Comment on above: Performed By: #### C BC ####[facility] Jfrdhqelvy65[address] [place] [phone]. Nahed Yañez MCV (RBC) [Entitic vol] 87.3 fL Normal 81.0-99.0 [facility] Comment on above: Performed By: #### C BC ####[facility] Xymdjxzfsq3167 [place] [phone]. Nahed Yañez MONO # 1.2 103/ul Critically high 0.3-0.8 [facility] Comment on above: Performed By: #### C BC ####[facility] S[address]fzmgyfr7417 [place] [phone]. Nahed Yañez Monocytes/100 WBC (Bld) 6.8 % Normal 1.7-12.0 [facility] Comment on above: Performed By: #### C BC ####[facility] Picfongszf[address] [place] [phone]. Nahed Yañez NEUT # 13.8 103/ul Critically high 1.4-6.[address] [facility] Comment on above: Performed By: #### C BC ####[facility] Ptfdpkhzpq25[address] [place] [address]Dr. Nahed Yañez Neutrophils/100 WBC (Bld) 76.5 % Critically high 43.0-75.0 [facility] Comment on above: Performed By: #### C BC ####[facility] Yofbofwmzp0704 [place] [address]Dr. Nahed Yañez Platelet mean volume (Bld) [Entitic vol] 10.5 fL Normal 9.5-13.5 [facility] Comment on above: Performed By: #### C BC ####[facility] Lgvvlycxsm6[address] [place] [phone]. Nahed Yañez PLT 319 103/ul Normal 150-450 [facility] Comment on above: Performed By: #### C BC ####[facility] Arsrgqvfjs[address] [place], [place] [address]Dr. Nahed Yañez RBC 4.74 106/ul Normal 4.20-5.40 [facility] Comment on above: Performed By: #### C BC ####[facility] Ssgarlmbps9[address] [place] [phone]. Nahed Yañez WBC 18.0 103/ul Critically high 4.0-11.[address] [facility] Comment on above: Performed By: #### C BC ####[facility] Knelorxdpd18[address] [place] [phone]. Nahed Yañez CULTURE BLOODon 08-21-2022 Microscopic examination of blood, culture Culture Observations: NO GROWTH AT 5 DAYS. Normal [facility] Comment on above: Performed By: #### B LDCX2 ####[facility] Jioapoweuj[address] [place] [phone]. Nahed Yañez Microscopic examination of blood, culture Culture Observations: NO GROWTH AT 5 DAYS. Normal [facility] [facility] [place] Comment on above: Performed By: #### B LDCX1 ####[facility] [address] [id number]. Nahed Yañez [facility]on 08-12 SARS-CoV-2 (COVID-19) RNA MIRNA+probe Ql (Unsp spec) Not detected Normal NOT DETECTED [facility] Comment on above: Result Comment: [...] for this test is supported by the [place] of Health and Human Service's declaration that [...] be used). Performed By: #### C VDTBH ####[facility] [address] [id number]. Nahed Yañez LACTATE/LACTIC ACIDon 2022 Lactate [Moles/Vol] 1.1 mmol/L Normal 0.4-2.0 [facility] Comment on above: Performed By: #### L ACT ####[facility] [address] [address]Dr. Nahed Yañez Lactate [Moles/Vol] 2.4 mmol/L Critically high 0.4-2.0 [facility] [place] Comment on above: Performed By: #### L ACT ####[facility] [address] [address]Dr. Nahed Yañez POINT OF CARE GLUCOSEon 08-12 Glucose [Mass/Vol] 453 mg/dL Critically high 74-106 [facility] Comment on above: Performed By: #### P OCGLUC ####[facility] [address] [place], [place] [address]Dr. Nahed Yañez Glucose [Mass/Vol] 358 mg/dL Critically high 74-106 [facility] Comment on above: Performed By: #### P OCGLUC ####[facility] [address] [place], [place] [address]Dr. Nahed Yañez Glucose [Mass/Vol] 98 mg/dL Normal 74-106 [facility] Comment on above: Performed By: #### P OCGLUC ####[facility] [address] [place], [place] [address]Dr. Nahed Yañez PROF CHEM 8 (BAS METB)on Anion gap [Moles/Vol] 14.7 mmol/L Normal [facility] Comment on above: Performed By: #### B MP, CMADM ####[facility] Adudmitill[address] [place], [place] [address]Dr. Nahed Yañez Calcium [Mass/Vol] 9.6 mg/dL Normal 8.5-10.1 [facility] Comment on above: Performed By: #### B MP, CMADM ####[facility] [address] [place], [place] [address]Dr. Nahed Yañez Chloride [Moles/Vol] 95 mmol/L Critically low 98-107 [facility] [place] Comment on above: Performed By: #### B MP, CMADM ####[facility] [address] [place], [place] [address]Dr. Nahed Yañez CO2 [Moles/Vol] 25.2 mmol/L Normal 21.0-32.0 [facility] Comment on above: Performed By: #### ERICK Ordonez MP ####[facility] [address] [address]Dr. Nahed Yañez Creatinine [Mass/Vol] 1.15 mg/dL Critically high 0.55-1.02 [facility] [place] Comment on above: Performed By: #### ERICK Ordonez MP ####[facility] [address] [place], [place] [address]Dr. Nahed Yañez EGFR-AF MALDIVIAN 58 mL/min/1.73m2 Critically low >=60 [facility] [place] Comment on above: Performed By: #### ERICK Ordonez MP ####[facility] [address] [place], [place] [address]Dr. Nahed Yañez EGFR-NON AF MALDIVIAN 48 mL/min/1.73m2 Critically low >=60 [facility] [place] Comment on above: Performed By: #### ERICK Ordonez MP ####[facility] [address] [place], [place] [address]Dr. Nahed Yañez Glucose [Mass/Vol] 191 mg/dL Critically high 74-106 T [facility] Comment on above: Performed By: #### ERICK Ordonez MP ####[facility] [address] [place], [place] [address]Dr. Nahed Yañez Potassium [Moles/Vol] 3.9 mmol/L Normal 3.5-5.1 [facility] [place] Comment on above: Performed By: #### ERICK Ordonez MP ####[facility] [address] [place], [place] [address]Dr. Nahed Yañez Sodium [Moles/Vol] 131 mmol/L Critically low 136-145 [facility] Comment on above: Performed By: #### ERICK Ordonez MP ####[facility] [address] [place], [place] [address]Dr. Rosemarieashley Yañez Urea nitrogen [Mass/Vol] 15.0 mg/dL Normal 7.0-18.0 [facility] [place] Comment on above: Performed By: #### ERICK Ordonez MP ####[facility] [address] [place], [place] [address]Lt. Nahed Yañez Urea nitrogen/Creatinine [Mass ratio] 13.0 mg/mg Normal [facility] Comment on above: Performed By: #### B RENZO, CMADM ####[facility] [address] [place], [place] [address]Tj. Nahed Yañez XR CHEST 2 Von 08-21-2022 XR CHEST 2 V Normal [facility] Coding Summary.on 08-11-2022 Coding Summary. CD:[id number] W w+PGhlYWQ+OB2SEEAsE91 dlHYvsZ7jQ0NGYFdIOrrz AOGGQLjQZkKkznUlYF6mn XNjZXJu IC8+VV8mDZEtGkjgwMUtz 9Z4zIY9J43oxg7yOYmvlR K5JCMlGrSsvdxmj2fciEh 6IDcuNmluOyBt DPBrzB47WGA5hX63Dk25m JWffISck7hggRg8JaHmNE NoITS6tWikWOboo1WuEOP fB94fcURvi1B3 GMZmmJnipGNgWeCsbYG6l W0xVElrxvxnh7qcelziOd o3hd51qOYxk2G0bZL1J6B zlfN6VTIywSWa NdzvfRUUjZ6kqholw7yjd rskArCvFYIoETz7PIl9HJ CboLtaJjKyBX25OTS4OUB vnqAqJ2ZvYEJz gBsnTyR0y0D4Xd1SI9UGE xdrY3SFHHBNOKoceLF+PC 30im72A2QcBivyYva2DLA oOSU9nLZ0nF8b REYoBKlku1G8iNL4Y8Quq gMvwg5fk5xkGJDnURxqC4 7taEQvx1T7LRHebJR0RGH dxVdvYfIwfG53 Oyc+REMqtMdrz7ZaKygxs 7nxf7ofrGq6FrouUFGcrn RqrTcuGLM5k3WbPs0iTJV egZQ3lTL8iN5k QuLvUwC5OShrN977QaFnr TWfHxuqU27wG3HkvFI+PH MkPdp2PYEwnCjmMR9lW7V hZGRpbmctbGVm zEtfIW9oBPJfepmkKEJue H0dWMVkA3v1ZtFuXhC6ER ujA7UwPRMypfgoAs66rR2 eChQhQbJ1BTiu L2IadhL7CPYdcJYvDGjwJ FU3Z71rz6L5ANZjMURuYZ F6xEQ1zA2lmQfpadwcnBJ mdDsgdmVydGlj OLcyUYwvU336BNKkwOmlK kNvZGluZyBEYXRlOiAgMD MvMzEvMjAyMzwvdGQ+PHR kMXI5sNuuREZk hHNcLOojOd9mcZxbaVlvL G6oCSWjietzZKSdxG9zYK ShxBNjpSqwLE9eVQTinzf er761WbLvIUK5 OWSxvQFbP7SplD9sNiOeK JIeNOUrK0DlzDDcJHgzK3 88KFlvFkR6GRKpoaYmN7W sLWFsaWduOiB0 l2Q3Yr5Ko3BhyogsU9Mho DIvVoCnYwwhUWk1G5UiKs wvdHI+NQ98VYCxQH55QGi 4YTR3cZttUFqz HRRnJ0ZzcK3jPmRuQQJpB GRkOyc+PHRhYmxlIHdpZH RoPScxMDAlJyBzdHlsZT0 xNr2rKKEzCKEn dLrxuFZtYsBla4gjJSBvP OtzQD4gvGliN2TcwAU6GN Goc6g3Pp75J63hR8MpnBA +EMCbfKV6oFP0 xR7aUiOxClO0IJdrJ346G xGrbJTtBcjgk0qco4gcoQ k2McU3MHJysmKifPcwVWW 4s0GrHi93B54u IHdpZHRoPSIxNSUiIHZhb Whcuu6vyG5wVx6+PGNvbC A4jFN1dO0cBkAbHaI5QQl aE568MvImtMPk Zsrvl2vwd9pziRs3KnFgA LCynrHvaJkwCDR0r9PtGp 97P3CfwYkds7AmKoj9ui9 0vBXyb0C7iQU7 J4DhWPJpazpduTSiaIogQ P0mBRBucauiYCVbpA8rWB RuJ8z3BeZuKmH5EOpoS9C zxeQ6GTAdjWHt BITdaPVRkD4lxekus8roz sqgSuRhIWMjNXj8NRb7VB IkeJrcNjYgANU3MyD2WYC 1aJYfnJ5fvNsa vlpjmK2tBxk+AIG1yPPbi CROPR3mLzcbaCU+PHRkIH H9cItjVVboVQEuoL8jSBK sI3o1AwCwQnA3 DJgfC0CuglK2QWZydXJdQ XJmeVPOlG6xlbfrv8naam xiFuHiQWUyYTb2XKu4NIZ saWduOiBsZWZ0 PcK9ZZL2tVUbpD6veOdlu qidoK0dObv+QmlydGggRG W0KKq1Q7TiPsy9TPXziGc eWR8jkUIoXUhx Mx8mtCxeeKmfDY4sZHQcm mmfn208PvJpr9dzWEVniH VtHZdyATO2F23rr7S5PWK oTDFlWGT4gEE5 gJ2jvJdiriktoXVbuHfop xNprKwfLZbySVilW127PX XqdAceUkDjITi2X1GfAqf 1IJNabEczQE6v dVDxIJfiTh6ewZramVkwF I5aUZLcjpomd793FgBid1 ymTYVcbTSySQkvFVT4W72 np7Z7QOOdQRNe GMP9eQS6mX5igWwieojcx GVmdDsgdmVydGljYWwtYW vsO471ICVuuUgcHjVctFu 0D6YnTcs4FVVq aZdaIU2gdUUjQDngLe8gb QcxtGulDI6dXLQrywkev7 28QtUzq9egCOZjrAErKBq gWRE4F10wf3Q0 EOOxDCFkQAH3qAN8fY5nq GlnbjogbGVmdDsgdmVydG sfIIvaAKmbC724VXOmaAf nPlBhdGllbnQg RFzyVWs2A3DuOxoneCZ+P I92FLAlVW74cGYviEQoe7 bqzZa3FjSuXXDrUOA9oEw zWRsdv9PzYFCi O25rlYYzf7B3CMJkwOpzs LHvCbLzqQN6uR3fTNbxno wsx2mjultnKzkww9gcgn3 0oU65D24hNQhw ZHRoPSIzMCUiIHZhbGlnb s3wjB6hHe7+VOXwmNV8jI R3vH0uZHXlJqW2NSkyV81 9InRvcCIvPjxj c9mpd6bhmQx2WvL4IOUmo iNwzJeaVHL3h0FsEj05X0 9sIHdpZHRoPSIyMCUiIHZ ekKewhb9fjW7k Ii8+WSTivHF6eJD9aY9jD sRtHrL7BRgpK536DxGnxH EtLjpnN83zN1FxcYZ+PHR uFdn1JEFydWgr ND1syAVyJKuhVm7cSVR2C gCaChAgKSnbD4CiNAKkbr ueepqgeUD3TKBmEENdfZ2 1Ql4blMfxDFHu jAPXcT9uvehdt0hwsctdV lAkDTNdLYj2UNd4VLUisW txVmJuJBJ7WcB9MSD1sGD swG1xaMdjdhxy gW1wY4CaZQGyjesuGr24d H0xLxClTtC0NBxyLrs+TU AUXP4DSMTYUOSCWEY0P1L uQnl6IUWulOdv PA5xdGKjSGorCg8zjKgij EqgID7dLXUuwawoKFNjtV 2lQBUitRUbeCzlVB9sCNQ stywhe991PwWg LLC1WATkjTPmJ1IqwL6vM mHgSBMvSRRiK0QfkJXaXI vvP016UWfeJgK1LNRgwuT mS3YaZMXskJch OxY9z7K6Xu9pIH0qJC3oK HOfIB52YR41wLYcv0M6hE V4N1LsVXEeuikrepswzBO 7SPCyFBAaxO94 bCDuEYcqMd1pi2S4x695M DOoILXaaD17Ml0fmKpjJD WfmUGZoB3qacagx6divnt gIzAwMDAwMDt0 BDq4DMXpwSalKiAbAPE5X vC2URD0zFBeaD1iyXdldi jzcK3oQsw+NjEgWWVhcnM 3T8VtUwc8SHXh mJxaXU1otXCbLKbyYn8os OcfzRdzOJ6vIIWtwdebCO CpiW4rKVYkvOKyvKuwZM4 mLGRualohz271 IwNiDDT7TIEdfEFqP0Ieb Y8rLtEqBISyNGOhE9PsoZ ZzWKkdY530DAegDrG7ATV vcaTjV1AhOEBq eSfcVsK1l3J5Kj9LVD4db FC6Y0XmBse0FVXdgVeoCP 7vkFUzYWwcPh8bpIogoAm kQB8nQCNxeixk VHPpaD3qBKVjxQQmzNlnY D2oYGHpkxyth334SmQkMO K0UKVcsRDdX3ArhY6dPbI cKALuELQfF7Az cTCcDAwvP235UZmnAoE5I RYbooCuZ8ZbLWBoaXhwAz P8h7X2Mz6KsRXpW2JiC4l 4U5EoDudknJN+ PX96PEXoMF23mEIllEXam 5unxOt2EyBvCWEeBKS5nD poBJavz4CbREJdC53zgIW ng9Z9GTDtzGsw cIWwTtAwmAW4uH4cDOvvh oyzb7egoyxcFlkkn9djxt 16iE59C77vOBnxVOUvIMO zMCUiIHZhbGln mo6ruW6rCq1+NHKbhFK5r DG5hL1tBfXiNkR9YDfyZ0 55YcMqdCSlJrexu2uos5l kjZe1EvBoPSMv laXlxTizFCU5m8DrJf43Q 29sIHdpZHRoPSIyMCUiIH StrFqzep7egL2nFl6+PC9 xo7zgrb17qL59 dHI+SEDeQNO9kSrgJUipI ITymQ8gFNxvYlJ2MTSiUc WbvZ22rBBxCDvyQz2vwOh nuDktOA7eDDTy wgzvr322YqWwk7kuZGBvo ATuSGxoOKK3K03ll3T8FY UrXORlNVP7zEM4xA1mrZx nbjogbGVmdDsg jnAsiBhdRBniSNusH210W QLmbWmkOvEcnUHwE0etxy EXKM6pJqlngZE+PHRkIHN 0eWxlPSdwYWRk bT2iRAViU9m5VfMsJnS8K NmwQ4AbcrQ0YOUtfUOuDK YdgSWOhH1kkffrv1kctqd gIzAwMDAwMDt0 QJn9UKLknSmwWwNbTYX7P jR3ZRL1nIPcyK2eeBosta wrhJ1pFqt+RklOOjwvdGQ +NKCpPCA1iCkj IXavFWCvnV0qVIPlI0o4S nJdOnK3OOcuN4ZrbaS5OZ BwjYAdKBAzxLTLsS4vnum zd4ghguekVkOo ORIwNCn4NFr5ZDSmaEdyZ fYcFCS4ZqN3MBL8wMDfhG 8ykVjptgnriY5hTno+TVJ OOjwvdGQ+PHRk BVB7tRafKBghVOYtzQ6eT NTlJ5v1FwHsWxB3PIwfN4 PoofH9XPHszTFnHWHjpNO RxV6ofisle2ps fgikCqJvHQCeQSe4HMj8X RCwyYylYdEwXPO2GmK0KL Q1iIMwtK4nsUqldhwegX8 wOyc+FBD1BYS2 TR85GR23U5KnQomtqQNla +PHRhYmxlIHdpZHRoPS avUANyKdHkzCwaOJ9iZk2 yZGVyLWNvbGxh cHNlOiBj (more content not included)... Normal [facility] Auto Diffon 08-09-2022 Basophils/100 WBC (Bld) 0.5 % Normal 0.0-2.0 [facility] Comment on above: Order Comment: Order Added by Discern Expert. Performed By: #### 2 478363, 7163623, 24339260, 0682833, 00946085, 35742169, 32840188 ####[facility] [address] [place] [address] Basophils/Leukocytes Auto (Bld) [Pure # fraction] 0.1 E9/L Normal 0.0-0.2 [facility] Comment on above: Order Comment: Order Added by Discern Expert. Performed By: #### 2 436726, 0918851, 72411129, 9155377, 85336246, 82536486, 64354294 ####[facility] [address] [place] [address] Eosinophils/100 WBC (Bld) 2.7 % Normal 0.0-8.0 [facility] Comment on above: Order Comment: Order Added by Discern Expert. Performed By: #### 2 572695, 1749730, 77518963, 0406735, 32532182, 88561507, 03581222 ####[facility] [address] [place] [address] Eosinophils/Leukocytes Auto (Bld) [Pure # fraction] 0.4 E9/L Normal 0.0-0.5 [facility] Comment on above: Order Comment: Order Added by Discern Expert. Performed By: #### 2 143028, 0876444, 16629559, 7429214, 50249786, 26008046, 93194582 ####[facility] [address] [place] [address] Lymphocytes/100 WBC (Bld) 12.8 % Low 14.0-50.0 [facility] Comment on above: Order Comment: Order Added by Discern Expert. Performed By: #### 2 695016, 7582934, 65329972, 8658127, 71647214, 24585174, 40462865 ####[address] [place] [address] Lymphocytes/Leukocytes Auto (Bld) [Pure # fraction] 2.1 E9/L Normal 1.0-4.0 [facility] Comment on above: Order Comment: Order Added by Discern Expert. Performed By: #### 2 143267, 3350137, 05839000, 9619178, 40443732, 53468959, 82883883 ####[address] [place] [address] Monocytes/100 WBC (Bld) 6.4 % Normal 4.0-14.0 [facility] Comment on above: Order Comment: Order Added by Discern Expert. Performed By: #### 2 638592, 6255522, 11206497, 6191772, 08864832, 50929554, 43640679 ####[address] [place] [address] Monocytes/Leukocytes Auto (Bld) [Pure # fraction] 1.0 E9/L Normal 0.2-1.0 [facility] Comment on above: Order Comment: Order Added by Discern Expert. Performed By: #### 2 048275, 8318788, 07357192, 8247003, 60241000, 02038839, 87006978 ####[facility] [address] [place] [address] Neutrophils/100 WBC (Bld) 77.6 % High 36.0-75.0 [facility] Comment on above: Order Comment: Order Added by Discern Expert. Performed By: #### 2 141551, 1092148, 87384331, 9617614, 27220791, 18345136, 82924130 ####[facility] [address] [place] [address] Neutrophils/Leukocytes Auto (Bld) [Pure # fraction] 12.6 E9/L High 2.0-7.5 [facility] Comment on above: Order Comment: Order Added by Discern Expert. Performed By: #### 2 258659, 8017941, 55480081, 2879986, 62566906, 23133407, 56918562 ####[facility] [address] [place] [address] BMPon 08-09-2022 Creatinine [Mass/Vol] 1.1 mg/dL Normal 0.5-1.3 [facility] Comment on above: Performed By: #### 2 632770, 3499284, 97881421, 3112752, 43547472, 92357342, 46910418 ####[facility] [address] [place] [address] Urea nitrogen [Mass/Vol] 18 mg/dL Normal 5-21 [facility] Comment on above: Performed By: #### 2 404989, 2729630, 08768825, 1061439, 29561754, 34918611, 08279378 ####[facility] [address] [place] [address] Urea nitrogen/Creatinine [Mass ratio] 16 No Units Normal 10-20 [facility] Comment on above: Performed By: #### 2 886379, 5637652, 77528810, 8093844, 67148312, 09227989, 50256009 ####[facility] [address] [place] [address] Anion gap [Moles/Vol] 13 mmol/L Normal 6-16 [facility] Comment on above: Performed By: #### 2 706897, 3940756, 71251809, 9133895, 39450931, 32738023, 99225009 ####[facility] [address] [place] [address] Calcium [Mass/Vol] 8.8 mg/dL Low 8.9-11.1 [facility] Comment on above: Performed By: #### 2 556013, 6219337, 60456126, 3924503, 03879733, 65070117, 93118481 ####[facility] [address] [place] [address] Chloride [Moles/Vol] 101 mmol/L Normal 101-111 [facility] Comment on above: Performed By: #### 2 386651, 4248943, 06600357, 1083499, 73009178, 46330002, 80015822 ####[facility] [address] [place] [address] CO2 [Moles/Vol] 27 mmol/L Normal 21-31 [facility] Comment on above: Performed By: #### 2 046091, 2132706, 38038978, 1953939, 54651138, 50729111, 74556131 ####[facility] [address] [place] [address] Glucose [Mass/Vol] 121 mg/dL Normal 55-199 [facility] Comment on above: Result Comment: If t his glucose result represents a fasting glucose, interpretation should refer to the following reference range: 55-99 mg/dL Performed By: #### 2 379671, 3961652, 04650282, 6877436, 22647105, 93495400, 91488030 ####[facility] [address] [place] [address] Potassium [Moles/Vol] 3.9 mmol/L Normal 3.5-5.3 [facility] Comment on above: Performed By: #### 2 231296, 3866634, 84838296, 9244520, 05270927, 63266663, 62142543 ####[facility] [address] [place] [address] Sodium [Moles/Vol] 137 mmol/L Normal 135-145 [facility] Comment on above: Performed By: #### 2 534361, 1155634, 65948746, 7093075, 72638461, 52138117, 32078920 ####[facility] [address] [place] [address] BNPon 08-09-2022 Int Ctr BNP Pass Normal [facility] Comment on above: Performed By: #### 2 303458, 7598732, 09168568, 7678550, 63373953, 34105280, 69915230 ####[facility] [address] [place] [address] Natriuretic peptide B (Bld) [Mass/Vol] 19 pg/mL Normal 5-80 [facility] Comment on above: Performed By: #### 2 309398, 8612664, 00638858, 7719092, 17867462, 33856173, 66243556 ####[facility] [address] [place] [address] Blood Gas Art, with Lytes, G alex, [place] 08-09-2022 a/A Ratio Art 75.90 % Normal >=0.80 [facility] Comment on above: Performed By: #### 4 [id number] ####[facility] [address] [place] [address] AaDO2 Art 21.9 mmHg High 5.0-15.0 [facility] Comment on above: Performed By: #### 4 [id number] ####[facility] [address] [place] [address] Allens Test Not Applicable Normal [facility] Comment on above: Performed By: #### 4 [id number] ####[facility] [address] [place] [address] Base Excess Arterial 3.1 mmol/L Normal >=2.8 [facility] Comment on above: Performed By: #### 4 [id number] ####[facility] [address] [place] [address] cCa2+ Art 4.86 mg/dL Normal 4.40-5.30 [facility] Comment on above: Performed By: #### 4 [id number] ####[facility] [address] [place] [address] cCl- Art 105.0 mmol/L Normal 101.0-111.0 [facility] Comment on above: Performed By: #### 4 [id number] ####[address] [place] [address] cGlu Art 117 mg/dL High 55-99 [facility] Comment on above: Performed By: #### 4 [id number] ####[address] [place] [address] cK+ Art 4.0 mmol/L Normal 3.5-5.3 [facility] Comment on above: Performed By: #### 4 [id number] ####[facility] [address] [place] [address] cLac Art 1.4 mmol/L Normal .5-2.2 [facility] Comment on above: Performed By: #### 4 [id number] ####[facility] [address] [place] [address] commanding officer homicide squad+ Art 142.0 mmol/L Normal 135.0-145.0 [facility] Comment on above: Performed By: #### 4 [id number] ####[facility] [address] [place] [address] Drawn by [employer] Invalid Interpretation Code [facility] Comment on above: Performed By: #### 4 [id number] ####[facility] [address] [place] [address] FCOHb Art 1.0 % Low 1.5-4.9 [facility] Comment on above: Result Comment: Refe rence range Nonsmoker <1.5% Smoker <5.0% Heavy Smoker <9.0% Performed By: #### 4 [id number] ####[facility] [address] [place] [address] FIO2 BG 21 Invalid Interpretation Code [facility] Comment on above: Performed By: #### 4 [id number] ####[facility] [address] [place] [address] FMetHb Art 0.5 % Normal 0.0-1.9 [facility] Comment on above: Performed By: #### 4 [id number] ####[facility] [address] [place] [address] FO2Hb Art 92.6 % Normal 92.0-100.0 [facility] Comment on above: Performed By: #### 4 [id number] ####[facility] [address] [place] [address] HCO3 (Bld) [Moles/Vol] 27.1 mmol/L High 22.0-26.0 [facility] Comment on above: Performed By: #### 4 [id number] ####[facility] [address] [place] [address] Hemoglobin (Bld) [Mass/Vol] 12.5 g/dL Normal 12.0-16.0 [facility] Comment on above: Performed By: #### 4 19047983 ####[facility] [address] [place] [address] Oxygen saturation in Blood 94.1 % Low 95.0-100.0 [facility] Comment on above: Performed By: #### 4 [id number] ####[facility] [address] [place] [address] P CO2 Arterial 48.9 mmHg High 35.0-45.0 [facility] Comment on above: Performed By: #### 4 [id number] ####[facility] [address] [place] [address] P O2 Arterial 68.8 mmHg Low 80.0-100.0 [facility] Comment on above: Performed By: #### 4 [id number] ####[facility] [address] [place] [address] pH Arterial 7.383 Normal 7.350-7.450 [facility] Comment on above: Performed By: #### 4 [id number] ####[place] [id number] Sample Site R Brachial Normal [facility] Comment on above: Performed By: #### 4 [id number] ####[place] [id number] Sample Type Arterial Draw Normal [facility] Comment on above: Performed By: #### 4 [id number] ####[address] [address] CBC w/ Auto Diffon 3 Erythrocyte distribution width (RBC) [Ratio] 15.4 % High 10.9-14.2 [facility] Comment on above: Performed By: #### 2 890054, [id number], 48635854, 8841972, 03001503, 27014214, [id number] ####[address] [address] Hematocrit (Bld) [Volume fraction] 36.9 % Normal 34.0-46.0 [facility] Comment on above: Performed By: #### 2 644697, 2318401, 17983314, 0926025, 58896545, 26805699, 83978472 ####[facility] [address] [place] [address] Hemoglobin (Bld) [Mass/Vol] 11.8 g/dL Low 12.0-16.0 [facility] Comment on above: Performed By: #### 2 138630, 2132937, 33560930, 9304686, 92898626, 06555041, 67018861 ####[facility] [address] [place] [address] MCH (RBC) [Entitic mass] 28.0 pg Normal 27.0-34.0 [facility] Comment on above: Performed By: #### 2 947057, 1126158, 22678678, 7041515, 07377425, 75401761, 74443881 ####[facility] [address] [place] [id number] MCHC (RBC) [Mass/Vol] 32.0 g/dL Normal 31.4-36.0 [facility] Comment on above: Performed By: #### 2 951366, 2620715, 85388228, 3629671, 36962760, 44270288, 48035172 ####[address] [address] MCV (RBC) [Entitic vol] 87.6 fL Normal 80.0-100.0 [facility] Comment on above: Performed By: #### 2 482144, 9348188, 09970338, 8338391, 10603077, 24156715, 84565634 ####[address] [address] Platelet mean volume (Bld) [Entitic vol] 8.4 fL Normal 6.4-10.8 [facility] Comment on above: Performed By: #### 2 832476, 2693244, 74616368, 8392827, 59606660, 47123823, 67480228 ####[address] [address] Platelets (Bld) [#/Vol] 238.0 E9/L Normal 150.0-500.0 [facility] Comment on above: Performed By: #### 2 247396, 6877174, 88899163, 4799888, 44983560, 23535389, 66906351 ####[address] [address] RBC (Bld) [#/Vol] 4.2 E12/L Low 4.3-5.9 [facility] Comment on above: Performed By: #### 2 604635, 7668892, 12443525, 5977733, 58491301, 20589580, 65020655 ####[facility] [address] [place] [address] WBC corrected for nucl RBC Auto (Bld) [#/Vol] 16.3 E9/L High 4.0-11.0 [facility] Comment on above: Result Comment: Slid e reviewed by LW. Performed By: #### 2 346280, 5614112, 65162384, 5903429, 55880595, 85181218, 48215892 ####[facility] [address] [place] [address] CHEMISTRYOrdered By: SYSTEM SYSTEM on 08-09-2022 Troponin I.cardiac [Mass/Vol] 7.00 pg/mL Low 10.10 - 27.10 pg/mL [facility] [place] Anion gap [Moles/Vol] 13 mmol/L Normal 6 - 16 mEq/L F C Remisol Calcium [Mass/Vol] 8.8 mg/dL Low 8.9 - 11. 1 mg/dL [facility] Chloride [Moles/Vol] 101 mmol/L Normal 101 - 1 11 mmol/L [facility] CO2 [Moles/Vol] 27 mmol/L Normal 21 - 31 mmol/L [facility] Creatinine [Mass/Vol] 1.1 mg/dL Normal 0.5 - 1.3 mg/dL [facility] GFR/1.73 sq M.predicted among blacks MDRD (S/P/Bld) [Vol rate/Area] mL/min/1.73 m2 Normal >=59mL/min/1 .73 m2 FT Chem S GFR/1.73 sq M.predicted among non-blacks MDRD (S/P/Bld) [Vol rate/Area] 50 mL/min/1.73 m2 Low >=59mL/min/1 .73 m2 [facility] Chem S Glucose [Mass/Vol] 121 mg/dL Normal 55 - 199 mg/dL [facility] Rem[facility] Potassium [Moles/Vol] 3.9 mmol/L Normal 3.5 - 5.3 mmol/L [facility] [place] Remisol Sodium [Moles/Vol] 137 mmol/L Normal 135 - 145 mmol/L FT Remisol Troponin I.cardiac [Mass/Vol] 4.00 pg/mL Low 10.10 - 27.10 pg/mL [facility] Urea nitrogen [Mass/Vol] 18 mg/dL Normal 5 - 21 mg/dL [facility] Urea nitrogen/Creatinine [Mass ratio] 16 mg/mg Normal 10 - 20 [facility] Remisol CHEMISTRYOrdered By: Evelyn montenegroer on 08-09-2022 Natriuretic peptide B (Bld) [Mass/Vol] 19 pg/mL Normal 5 - 80 pg/mL [facility] HemeManSS COAGULATIONOrdered By: Sagar Castorena on 08-09-2022 aPTT Coag (PPP) [Time] 31.4 s Normal 25.1 - 36.5 second(s) [facility] Auto Coag INR Coag (PPP) [Relative time] 0.9 {INR} Invalid Interpretation Code [facility] Auto Coag PT Coag (PPP) [Time] 10.3 s Normal 9.4 - 1 2.5 second(s) [facility] Auto Coag CTA Cheston 08-09-2022 CTA Chest [...] Lucero FINAL REPORT Dictated: 08/09/2022 3:42 pm Phil Alvarez MD, V. Signed (Electronic Signature): 08/09/2022 3:42 pm Signed by: Phil Alvarez MD, V. Transcribed by: SRAVANI Technologist: SANTOS Technical Comments GFR (mL/min/1/73m2) 50 Contrast: Isovue 370 Contrast amount in ml's: 73 Normal [facility] Discharge Instructionson Discharge Instructions [id number]# 1.00CD:127 Normal [facility] ED Clinical Summaryon 2022 ED Clinical Summary [place] [address] ED Clinical Summary Person Information Name: VIVIAN VANN Vika/[facility] Age: 62 Years : 1960 Sex: Female Language: Icelandic PCP: Екатерина Robert MD Marital Status: Visit Id: Visit Reason: [...] 08/09/2022 18:01:49 08/09/2022 18:01:49 08/09/2022 18:01:49 ADDRESS: [address] [id number] PHYS DOC NOTES: MEDICAL INFORMATION: Prescriptions Given: [facility], [address] [place], [place] [id number], [phone] brompheniramine/dextr omethorphan/PSE (Bromfed DM oral syrup) 5 [...] Disease Follow up: With: Address: When: Екатерина Robert [address] [place] [address], [facility] [place] [phone] Business (1) In 3 days 08/12/2022 Comments: Call the office of your primary care doctor to arrange for follow-up within the above-stated timeframe. Follow-up with your primary care doctor about this ED visit. You should review your labs, imaging, and diagnoses from this ED visit with your primary care physician. If y (more content not included)... Normal [facility] ED Note-Physicianon 08-10-19 ED Note-Physician Basic Information Time Seen: Nic BOND, Clinton Whyte 08/09/2022 13:16 Chief Complaint Pt has SOB. known PE and Pneumonia. COPD hx. History of Present Illness Patient is a 62-year-old female with history of COPD who presents ED with complaints of cough, congestion, shortness of breath, chest pain over the last week. Patient does report that she has had 2 admissions to [facility] over the last few weeks for pneumonia/COPD exacerbation. Patient is currently on amoxicillin at home, feels that her symptoms are not improving but are in fact worsening. Patient endorses fevers and chills, myalgias. Patient reports her symptoms had not improved much on her last discharge from [facility], and worsening since that time. Patient is [...] and Complexity of Problems Differential Diagnosis: [] [facility] Data External documents reviewed: [] My EKG [...] for co (more content not included)... Normal [facility] Comment on above: Result Comment: Elec [...] these instructions at home: Medicines ? Take ncsy-qcj-jnebjxp and prescription medicines (inhaled or pills) only [...] you e (more content not included)... Normal [facility] ED Patient Summaryon 023 ED Patient Summary [address] [address] Patient Discharge Instructions Person Information Name: VIVIAN VANN Age: 62 Years Arrival Date: 08/09/2022 13:09:07 Discharge Diagnosis: COPD exacerbation Primary Care Physician: Екатерина Robert MD Provider Information Primary Provider: Arsenio Martin DO [employer] Gar[employer] Mechanic:Clinton Lucero PA-C The exam and treatment you received in the Emergency Department were for an urgent problem and are not intended as complete care. It is important that you follow up with a doctor, nurse practitioner, or physician?s greenhouse assistant for ongoing care. If your symptoms become worse or you do not improve as expected and you are unable to reach your usual health care provider, you should return to the Emergency Department. We are available 24 hours a day. VIVIAN VANN has been given the following list of patient education materials, prescriptions and follow-up instructions: Follow-up Instructions: With: Address: When: Екатерина Robert [address] [place] [address], [facility] [place] [address] Business (1) In 3 days [...] opioids can be used to help relieve lxprdmqu-lp-cjzlap pain and are often prescribed following a [...] Safely disp (more content not included)... Normal [facility] EMS Documentationon 08-10-19 23 EMS Documentation Please click on link to see report [id number] CiX5+prnDQolQUJDcGRmI FRxWuR5RMtpLxSqHJ2riv 1JANtTX5BkMECyIMz6Mr5 I TXklOLv9TTIwIY6SK9waP Rp1TqU0Yx9LmR0eGZFveg LuCENBK15uMkvoYdKuWOs bRITyJrp0VoRG Ag2vHCPmNSTxQEUoYUXoE CAgICAgICAgICAgICAgIC AgICAgICAgICAgICAgICA gICAgICAgICAg ICAgICAgICAgICAgICAgI CAgICAgDQplbmRvYmoNCg 8PcCLbOy3XSwIuIxFVBhE wMDAwMDAwMzIg APArKIOqzt6QMZIgTDQpI XN2YOAcWXGuOFRcDWwkMN LxACOgUXl4OWGuUYEzEX8 NCjAwMDAwMDE3 MEJzXNWgQTYzyc4KEBHqW DAwMTkzNCAwMDAwMCBuDQ nvHVNlWEYdOVh6HEZlVYM hIP4OTzNwVHTj TZMoFoRgRHKdEJCevp5UL DAwMDAwMjMxNSAwMDAwMC UaSVypDMKlNKEwRev0HMI wXKWfSH8GSdWg NSVlICE1VMezZSMhXENsw m6EXZDmQZCqSgsrQQMlGH AwMCBuDQowMDAwMDAzMDY kSXZfBRWjVO6Z BpYbFVMtUQW1ZNXcJAKoP HTgbs1GPCUfKLXkKpCyUs AwMDAwMCBuDQowMDAwMDA bGGV5YOJzQAOt HV3WHgGyXZMoZOQlBCMyG XQxUKZzoj3GUROlKXGqIK T7MpXwZKRxHIPzNWpdJZQ dMDK5XyG9RTKy UHUzFL1EAeMmSLToGJF9I KVfNVTiJXGdyu9OVHNoRX GaESA2RMQvPIJtESSfRLn uRNYwKVK7FUE9 EGUtXFEiRG4LRbSuHXBpX CE9MXixATWoHLIpes1ADZ AwMDAwOTMwMCAwMDAwMCB uDQowMDAwMDQ5 GHzlEIPxZPUxLZ2PNmHuO POhUKG7BWQpUCFhGHZyur 7BjYRmqSbkdh5UHHtOW9y SXRx3LCZDNHZ8 LmO9X8M5LcO2IEoNIByxI YQ2XCSDWzS1FVX+CjxGRj ZyG7MDGIPAQCAkVhbxLQI DRCH9OXeqJWr5 VTSnED5iXe0CgcN8MGC7H FuxSIglMn5ynAJdMiQjIC TDB1RgxdBgXWiHT9ExtOO oQVVcV7NYCGT9 Mt59BmquiWeCGCH2QNPCX FpaED6CYukVCoHiEIooEj 66G5TXn6G0RaBmP4FDkZq JbmGQGLyiD0eW sFC6r3mitJuCoDRVtUfbZ GdJcndPalFSQUlqUHNXaE 20ukiZN7NuZBo2R5WRBq9 HYFbtAnEsoC1F lDpvISU6hW2vBPDVSWdRZ xwaYR3BQUUSSFg3MIe+Pi AgICAgICAgICAgICAgICA gICAgICAgICAg ICAgICAgICAgICAgICAgI CAgICAgICAgICAgICAgIC AgICAgICAgICAgICAgICA gICAgICAgICAg ICAgICAgICAgICAgICAgI CAgICAgICAgICAgICAgIC AgICAgICAgICAgICAgICA gICAgICAgICAg ICAgICAgICAgICAgICAgI CAgICAgICAgICAgICAgIC AgICAgICAgICAgICAgICA gICAgICAgICAg ICAgICAgICAgICAgICAgI CAgICAgICAgICAgICAgIC AgICAgICAgICAgICAgICA gICAgICAgICAg ICAgICAgICAgICAgICAgI CAgICAgICAgICAgICAgIC AgICAgICAgICAgICAgICA gICAgICAgICAg ICAgICAgICAgICAgICAgI CAgICAgICAgICAgICAgIC AgICAgICAgICAgICAgICA gICAgICAgICAg ICAgICAgICAgICAgICAgI CAgICAgICAgICAgICAgIC AgICAgICAgICAgICAgICA gICAgICAgICAg YA2Oa1EennK0wzGiFInhO WhbYPWGQz9LPLsiLhTfBL 3ysk2GIZeJA70sfMVqIRG hIDIxIDAgUgov E4HqylFdcNkspyMuGtAaJ BWGNe3LfIDRDGhoH1M7rS cdMTQnXNbhQGQOCj3MBWj nMZ7dOLCwVKJy Jo4rAZgnLXYtFVMiKdBpW VYMWp7YjIStFN1JTKNopI 9nCj4+DQplbmRvYmoNCg0 KMjQgMCBvYmoN Ovp7Li0GpKd6VJPmA9DcC ZAsEDUgz9HxOy7DVO4dcY drDEG4Ow7KHYz3Cc1+DQp knYPePJ2MIfhh K2ExZIYiOTZoIKEbMTjDo XCgAIUpQLYQVIyLgXHaDQ jzpTYDMsAQZzMCEmJQzMC uKtD8PFiYN5Y0 FVmDVcJkm4D0WDtETSHUT jIfBMtScUjB6gNZjWzBhq J16BR3hGaYGZMaTMUJ1DB cpSeD9KpCNg8I 0C1GPI1vp0OmFZDqYYweq aKkEvnKUg8VUeHtYYLjWl cVYww0Sx6Gq511ZN27foQ bNDIgMCBSXQov UDTxtAGJx0fdGgVyRZW7Y UOmRfpgNWgdCXUmIC05SJ NuWBCcHnhaZaXad1BiE5F tFYu1Ys3BJ4Zb MFO5FPy5Sz2DSJGkWfCwI jVvGRRNBt8RDh4CY9R9lW NlL0YnF2NPQh8SLcAvQV0 xwn0JFTniXaDf HQ9gzi0FLOuCE5OAq0kjN kJrTHO8AMQlKhtoDMhxLc ibxIPcSO3UaEC4KDZmU82 yOVogJKWnF6Pp JSe4Xk7CCWCpdZHzVSKnY EcCG7cVItiuS0GfQKsGP8 vbIzP1GRVsMQJoVaz+Pgo +BrvcL0JtmIso OBSkEh8izUnjDWimXQLqN L3vixYcnJk+Ge7Nf0VvXZ AyHGg2hSYU5HDk9UQlOKO lMLT9OYLgdjNV CItw3UdReRXuUsYlqWArU 5kiVGBm31rAOJGrGyuQy1 jfMpKc8XgZGX+JH3QKvsK eWpKneo8XVBrl kfBiuLKiCS2CZcYkGJ1tm m5SWJlcPcGwEM9uta7VYV sQF0XGMU0Qa1NtPKiRV1P ZRCPUZ3wSNYMI F2hJOZWHM1cRKOVUY77GV WUKY2BEPHYqxEUWC8TrDH GBTl4AGiRdKU4jdy7DJNl dDMFlLV1fcc8U ZWiRE3QPVS5Ub6GtIKnAU 9GrRJHXQt6MDhRwDL7caf 3HTJraKBXaUV1fci9XSHe VJ5SVLY7Um0Zr AIeCM7KNLKYLA0jOWJNWG 2sKZLYRP5aFTLZRJ19NBE IOW4URZDTbjESTT2YqIFM QAg4VDxNzWY0w kb9TMUblCQXiMI8aly6CS CrOI1Igl1LMv050KU1XQq kRGO3vQ635plhaiq4bc8K TLUJvbGRNVAov PQDaW4FwWZMplSPydeXrB QblWNTqHCBbRy0DpgNtQO luZyAvSWRlbnRpdHktSAo jI1PvoEwjSPLb XTouGITPA3FmOZ8rZ92eX QPrRlUcFQYKH2I0pJGsO6 PmazBHGi0UAyYiGR1jdd3 EMHexYDOhEG7u xn0MOTxDF9Rco5IXe052M U0JZomRQB2tT917fxmfqw 1gq5URNPEznVPCIWneO2n RO8geiGHyVP4k zqL3GNrfR3MyFRIifgwfO GyzIU41wLK5MPyrJzVqmI T5mnkzXRKrx5CwFCyoB3M wcGxlbWVudCAw Cj4+Yr8PBTPNo4yMBJ6pp XWjDTLqkbQvgBuMN2XOEZ AYK0QrpaMYYLTrvgcydS1 yIDMyIDAgUgov T5NqxYlsYUReY3fIVf1ql RJ2uGVwQn3RgAUaOV5It7 04Wr3RNAduHStsAAZzKC5 sMGg9Ix9OSh1R BkKuYQ7gpr6ETBrfLsRuX U3hof9AALmZX5DgP4IdoA N1FiLfXAB5TKIDL1MyiPz nxDcmvTY8OKWu Aye3CSuIM2Tdr6ZlenGrQ iCeHcS3Tmv8Ea9LtHCrml MoMBbhIi0yeJXBc4vfMi5 kUBBkTSm4ENId LFjzIJ45CBmmQjH6RYZcI wLzUETmOCZeGM0oDQD3GT 1MR8TweuTVgBwfQfK3AMC nRTQDB2SjclFE MI4eRN4ZOkxDSF0lW445w qsmec8jd6BZFCUghOKARS qdNGSpwGqtNB8xiLGpKRm tA7YsdMUnVbAu MDpiBDgMQ3J6bHIlC6Vta eFLZFSjlypmnG6tQk8+DQ lkstMqSugYJb4XFlBaDCL oQczFSil1Nx9U dAj3LOHyD2RoLXLsHTCnl 1ZoCn1SNP3jmFhqVnV4Cw 4+UZceuCLpYG9GEvjjMZA YaqFkTIr8D5pK HcTBJQdXPOcczhZlP8ZjI 2c5wWkWmEms7H2cufATnm muW3fmm49X8G1+uBwy1AE EkvKBz4M1m3s2 iCQ2HMibXAy6OzjhTs0t4 BxLoridpwBDY/uRlSXnyV tZWoUHjJCT9tczKUXpCUa zh0r5lFuS99tc vzCADVywquIa+iu90wj3b mKomLov9Ii2LL8DiQHpo0 oBZrCUumQpzfb6Kfgnd0K LDIxXe2PrZAIv /1BtPz344sB7fM8smgZKB Bu8eVFLWwFWiYtd9a7aPk ZkYD8NcK5sAkXQ2k6UleS Re3m63sQPH1Si RvIayawgcodHIYmkChnJi xckc/KcTA3rg4LtVOC+y+ lGrXWgHuzr9GdgNw2OphO D45cWSHiK16/A pC5VXc6ptvcfAe9OLF3yj 3RyZWFtDQplbmRvYmoNCg 3IWfQeHWYtBxqMYxv4Wg0 ZKFMrZu6ppHFi EbpLBKxQF9TqbBOqYQBBT UjOE36QPu7JLIAuMV0oAR 12Se9qwNMsCkY5BBPwIq5 QO0MxB47jcF3b KN8JGUMexKu4iZ2KBa8Mm ZO0qNMrGA5KvHYoSIqxLK 7Ejztai0YdDBR6 (more content not included)... Normal [facility] FT Blood GasesOrdered By: Ra raciel Marx on 08-09-2022 a/A Ratio Art 75.90 % Normal >=0.80% FT Resp Auto SS AaDO2 Art 21.9 mm[Hg] High 5.0 - 15.0 mmHg FT Resp Auto SS Allens Test Not Applicable (08/09/22 2:03 PM) Normal FT Resp Auto SS Base Excess Arterial 3.1 mmol/L Normal >=2.8mmol/L FT C Resp Auto SS cCa2+ Art 4.86 [...] - 2.2 mmol/L FT Resp Auto SS commanding officer homicide squad+ Art 142.0 mmol/L Normal 135.0 - 145.0 mmol/L [facility] Resp Auto SS Drawn by RLG Invalid Interpretation Code [facility] Resp Auto SS FCOHb Art 1.0 % Low 1.5 - 4.9 % [facility] Resp Auto SS FIO2 BG 21 Invalid Interpretation Code [facility] Resp Auto SS FMetHb Art 0.5 % Normal 0.0 - 1.9 % FT Resp Auto SS FO2Hb Art 92.6 % Normal 92.0 - 100.0 % [facility] Resp Auto SS HCO3 (Bld) [Moles/Vol] 27.1 mmol/L High 22.0 - 26.0 mmol/L FT Resp Auto SS Hemoglobin (Bld) [Mass/Vol] 12.5 g/dL Normal 12.0 - 16.0 gm/dL [facility] Resp Auto SS P CO2 Arterial 48.9 mm[Hg] High 35.0 - 45.0 mmHg FT Resp Auto SS P O2 Arterial 68.8 mm[Hg] Low 80.0 - 100.0 mmHg [facility] Resp Auto SS pH Arterial 7.383 Normal 7.350 - 7.450 [facility] Resp Auto SS Sample Site R Brachial (08/09/22 2:03 PM) Normal [facility] Resp Auto SS Sample Type Arterial Draw (08/09/22 2:03 PM) Normal [facility] Resp Auto SS HEMATOLOGYOrdered By: SYSTEM SYSTEM on 08-09-2022 Basophils/100 WBC (Bld) 0.5 % Normal 0.0 - 2.0 % [facility] HemeAutoSS Basophils/Leukocytes Auto (Bld) [Pure # fraction] [...] 12.6 E9/L High 2.0 - 7.5 E9/L FT HemeAutoSS HEMATOLOGYOrdered By: Evelyn martínez on 08-09-2022 [...] 32.0 g/dL Normal 31.4 - 36.0 gm/dL [facility] HemeAutoSS MCV (RBC) [Entitic vol] 87.6 fL Normal 80.0 - 100.0 fL FT HemeAutoSS Platelet mean volume (Bld) [Entitic vol] 8.4 fL Normal 6.4 - 10.8 fL FT HemeAutoSS Platelets (Bld) [#/Vol] 238.0 E9/L Normal 150.0 - 500.0 E9/L FT HemeAutoSS RBC (Bld) [#/Vol] 4.2 E12/L Low 4.3 - 5.9 E12/L FT HemeAutoSS WBC corrected for nucl RBC Auto (Bld) [#/Vol] 16.3 E9/L High 4.0 - 11.0 E9/L FT HemeAutoSS Comment on above: Result Comment: Slid e reviewed by LW. PT & PTTon 08-09-2022 aPTT Coag (PPP) [Time] 31.4 second(s) Normal 25.1-36.5 [facility] Comment on above: Result Comment: Para [...] the same coagulation reagent and instrumentation as [facility]. Currently there are no coagulation studies available worldwide for children to 14 days, and no normal ranges. Heparin therapeutic range (represented by Anti-Factor Xa activity of 0.2 - 0.4 U/mL) corresponds to PTT of 56.6 - 109.0 sec. Performed By: #### 2 [id number], [id number], [id number], 6978511, 62971187, [id number], [id number] ####[facility] [address] [place] [address] INR Coag (PPP) [Relative time] 0.9 {INR} Invalid Interpretation Code [facility] Comment on above: Result Comment: INR results are specifically intended to assess patients stabilized on long-term Anticoagulation therapy suggested INR?s ?Less Intensive Anticoagulation? 2.0 ? 3.0 Conventional Range 3.0 ? 4.5 Performed By: #### 2 507198, 9571915, 75787828, 2244065, 33208176, 71260908, [id number] ####[facility] [address] [place] [address] PT Coag (PPP) [Time] 10.3 second(s) Normal 9.4-12.5 [facility] Comment on above: Result Comment: 15 d ays - 4 weeks 1 - 5 months 6 -11 months 1- 5 years 6-10 years 11 -17 years Mean: 11.2 (9.5-12.6) Mean: 11.0 (9.7-12.8) Mean: 11.0 (9.8-13.0) Mean: 11.3 (9.9-13.4) Mean: 11.7 (10.0-14.6) Mean: 11.8 (10.0 - 14.1) Pediatric Reference ranges were obtained from a study by chong Keyes al. prepared from 1437 samples obtained at 7 different centers using the same coagulation reagent and instrumentation as [facility]. Currently there are no coagulation studies available worldwide for children to 14 days, and no normal ranges. Performed By: #### 2 942439, 2580105, 27477023, 7175838, 18393996, 39771891, [id number] ####[facility] [address] [place] [address] Pre-Arrival Noteon 3 Pre-Arrival Note Pre-Arrival Summary Name: , Current Date: 08/09/2022 13:09:29 EDT Gender: Female Date of : Age: 62 Pre-Arrival Type: EMS ETA: 08/09/2022 13:33:00 EDT Primary Care Physician: Presenting Problem: sob Pre-Arrival User: John Martin Referring Source: Location: AR Completion Date/Time: 08/09/2022 13:03:00 [facility] Emergency Department Pre-Hospital Report Form Vital Signs: Pre-Hospital Report: Treatment in Route: Response to Treatment: Misc. Issues: Normal [facility] Troponin 0 Hr.on 08-09-2022 Troponin I.cardiac [Mass/Vol] 4.00 pg/mL Low 10.10-27.10 [facility] Comment on above: Result Comment: The 95% CI (Confidence Interval) PPV (Positive Predictive Value) for myocardial infarction in females is 38 pg/mL, in males 51 pg/mL. The results should be used in conjunction with clinical conditions of myocardial infarction. (Access High Sensitivity Troponin I Instructions For Use, [employer], December 2017) Performed By: #### 2 [id number], 2886918, 46362570, 9803522, 98208157, 18697199, [id number] ####[facility] [address] [place] [address] Troponin 3 Hr.on 08-09-2022 Troponin I.cardiac [Mass/Vol] 7.00 pg/mL Low 10.10-27.10 [facility] Comment on above: Result Comment: The 95% CI (Confidence Interval) PPV (Positive Predictive Value) for myocardial infarction in females is 38 pg/mL, in males 51 pg/mL. The results should be used in conjunction with clinical conditions of myocardial infarction. (Access High Sensitivity Troponin I Instructions For Use, [employer], December 2017) Performed By: #### 1 [id number] ####[place] [address] [place] [address] XR Chest Single Viewon 08-09 XR Chest [...] mGy = na DAP = na Normal [facility] eGFRon 08-09-2022 GFR/1.73 sq M.predicted among blacks MDRD (S/P/Bld) [Vol rate/Area] mL/min/{1.73_m2} Normal >=59 [facility] Comment on above: Order Comment: Order added by Discern Expert. Result Comment: eGFR is race adjusted. AA=. Performed By: #### 2 816074, 2103546, 02924559, 6471914, 69717351, 96316653, 99096603 ####[facility] [address] [place] [address] GFR/1.73 sq M.predicted among non-blacks MDRD (S/P/Bld) [Vol rate/Area] 50 mL/min/1.73 m2 Low >=59 [facility] Comment on above: Order Comment: Order added by Discern Expert. Result Comment: Neurology Professor valeria kidney disease could be indicated at eGFR's of less than 60 mL/min/1.73m2. Kidney failure is indicated at less than 15 mL/min/1.73m2. Performed By: #### 2 368844, 5611970, 29493193, 7357184, 70386738, 04939889, 57060711 ####[facility] [address] [place] [address] CBC W MANUAL DIFFon 08-02-19 23 ATYPICAL LYMPH # Normal [facility] Comment on above: Performed By: #### C ROSARIO ####[facility] [address] [place] [id number]. Nahed Yañez ATYPICAL LYMPH % Normal [facility] Comment on above: Performed By: #### C ROSARIO ####[facility] [address] [place] [id number]. Nahed Yañez BAND # 0.9 103/ul Critically high 0.0-0.3 [facility] Comment on above: Performed By: #### C ROSARIO ####[facility] [address] [place] [address]Dr. Yilan Yañez BAND % 5 % Normal 0-5 [facility] Comment on above: Performed By: #### C ROSARIO ####[facility] [address] [place] [address]Dr. Nahed Yañez BASOM # 0.00 103/ul Normal 0.00-0.10 [facility] Comment on above: Performed By: #### C ROSARIO ####[facility] [address] [place] [address]Dr. Nahed Yañez BASOM % 0.0 % Critically low 0.2-2.0 [facility] Comment on above: Performed By: #### C ROSARIO ####[facility] [address] [place], [place] [address]Dr. Nahed Yañez BLAST # Normal [facility] Comment on above: Performed By: #### C ROSARIO ####[facility] [address] [place] [address]Dr. Nahed Yañez BLAST % Normal [facility] Comment on above: Performed By: #### C ROSARIO ####[facility] [address] [place] [address]Dr. Nahed Yañez CORRECTED WBC Normal 4.0-11.[address] [facility] Comment on above: Performed By: #### C ROSARIO ####[facility] [address] [place] [address]Dr. Nahed Yañez EOS # 0.00 103/ul Normal 0.00-0.70 [facility] Comment on above: Performed By: #### C ROSARIO ####[facility] [address] [place], [place] [address]Kf. Nahed Yañez EOS% 0.0 % Critically low 0.9-7.0 [facility] Comment on above: Performed By: #### C ROSARIO ####[facility] [address] [place], [place] [address]Ia. Nahed Yañez HCT 39.5 % Normal 36.0-48.0 [facility] Comment on above: Performed By: #### C ROSARIO ####[facility] [address] [place], [place] [address]Oi. Nahed Yañez HGB 13.0 g/dl Normal 12.0-16.0 [facility] Comment on above: Performed By: #### C ROSARIO ####[facility] [address] [place] [phone]. Nahed Yañez LYMPHM # 1.72 103/ul Normal 1.20-3.80 [facility] Comment on above: Performed By: #### Isabell PONCE ####[facility] [address] [place], [place] [address]Xe. Nahed Yañez LYMPHM% 10.0 % Critically low 20.5-60.0 [facility] Comment on above: Performed By: #### Isabell PONCE ####[facility] [address] [place], [place] [address]Bv. Nahed Yañez MCH 28.7 pg Normal 26.7-34.0 [facility] Comment on above: Performed By: #### Isabell PONCE ####[facility] [address] [place], [place] [address]Be. Nahed Yañze MCHC 32.9 g/dl Normal 29.9-35.2 [facility] Comment on above: Performed By: #### Isabell PONCE ####[facility] [address] [place], [place] [address]Kx. Nahed Yañez MCV 87.2 fL Normal 81.0-99.0 [facility] Comment on above: Performed By: #### Isabell PONCE ####[facility] [address] [place] [id number]. Nahed Yañez METAMYELOCYTE # Normal [facility] Comment on above: Performed By: #### C ROSARIO ####[facility] [address] [place] [phone]. Nahed Yañez METAMYELOCYTE % Normal [facility] Comment on above: Performed By: #### C ROSARIO ####[facility] [address] [place] [id number]. Nahed Yañez MONOM# 0.86 103/ul Critically high 0.30-0.80 [facility] Comment on above: Performed By: #### C ROSARIO ####[facility] [address] [place] [id number]. Nahed Yañez MONOM% 5.0 % Normal 1.7-12.0 [facility] Comment on above: Performed By: #### C ROSARIO ####[facility] [address] [place] [id number]. Nahed Yañez MPV 9.8 fL Normal 9.5-13.5 [facility] Comment on above: Performed By: #### C ROSARIO ####[facility] [address]ns[address]rm[address] [place] [id number]. Nahed Yañez MYELOCYTE # Normal [facility] Comment on above: Performed By: #### C ROSARIO ####[facility] [address] [place] [phone]. Nahed Yañez MYELOCYTE % Normal [facility] Comment on above: Performed By: #### C ROSARIO ####[facility] [address] [place] [id number]. Nahed Yañez NRBC Normal [facility] Comment on above: Performed By: #### C ROSARIO ####[facility] [address] [place] [id number]. Nahed Yañez PLT 388 103/ul Normal 150-450 [facility] Comment on above: Performed By: #### C ROSARIO ####[facility] [address] [place] [id number]. Rosemarieashley Otilio RBC 4.53 106/ul Normal 4.20-5.40 [facility] Comment on above: Performed By: #### C GILBERTOMAN ####[facility] Y[address] [place] [id number]. Nahed Yañez RDW 14.4 % Normal 11.0-15.0 [facility] Comment on above: Performed By: #### C ROSARIO ####[facility] [address] [place], [place] [address]Zq. Nahed Yañez SEG # 13.76 103/ul Critically high 1.40-6.50 [facility] Comment on above: Performed By: #### C ROSARIO ####[facility] [address] [place] [id number]. Nahed Yañez SEG % 80.0 % Critically high 43.0-75.0 [facility] Comment on above: Performed By: #### C ROSARIO ####[facility] [address] [place] [id number]. Nahed Yañez WBC 17.2 103/ul Critically high 4.0-11.0 [facility] Comment on above: Performed By: #### C ROSARIO ####[facility] [address] [place] [id number]. Nahed Yañez MAGNESIUMon 08-01-2022 Magnesium [Mass/Vol] 2.0 mg/dL Normal 1.8-2.4 [facility] Comment on above: Performed By: #### MG COLE, CMP ####[facility] [address] [place] [id number]. Nahed Yañez POINT OF CARE GLUCOSEon 07-13 Glucose [Mass/Vol] 267 mg/dL Critically high 74-106 [facility] Comment on above: Performed By: #### P OCGLUC ####[facility] [address] [place] [id number]. Nahed Yañez PROF 14(COMP METB)on 023 Albumin [Mass/Vol] 3.4 g/dL Normal 3.4-5.0 [facility] Comment on above: Performed By: #### Nydia ELLER MG, CMP ####[facility] [address] [place] [address]Dr. Nahed Yañez Albumin/Globulin [Mass ratio] 0.9 {ratio} Normal [facility] Comment on above: Performed By: #### MG COLE, CMP ####[facility] Dmgwczyflx0753 [place] [address]Dr. Nahed Yañez ALP [Catalytic activity/Vol] 100 U/L Normal 46-116 [facility] [place] Comment on above: Performed By: #### MG COLE, CMP ####[facility] Rgvonipshf7375 [place] [address]Dr. Nahed Yañez ALT [Catalytic activity/Vol] 19 U/L Normal 14-59 [facility] [place] Comment on above: Performed By: #### MG COLE, CMP ####[facility] Uhbuivyukx0130 [place] [address]Dr. Nahed Yañez Anion gap [Moles/Vol] 12.7 mmol/L Normal [facility] Comment on above: Performed By: #### MG COLE, CMP ####[facility] Kyjwpsbuzf9307 [place] [address]Dr. Nahed Yañez AST [Catalytic activity/Vol] 13 U/L Critically low 15-37 [facility] [place] Comment on above: Performed By: #### MG COLE, CMP ####[facility] Edcoolqapu1634 [place] [address]Dr. Nahed Yañez Bilirubin [Mass/Vol] 0.4 mg/dL Normal 0.2-1.0 [facility] [place] Comment on above: Performed By: #### MG COLE, CMP ####[facility] Nuiozjbbrp64[address] [place] [address]Dr. Nahed Yañez Calcium [Mass/Vol] 9.5 mg/dL Normal 8.5-10.1 [facility] Comment on above: Performed By: #### MG COLE, CMP ####[facility] Ansrpsennu2794 [place] [address]Dr. Nahed Yañez Chloride [Moles/Vol] 100 mmol/L Normal 98-107 [facility] Comment on above: Performed By: #### MG COLE, CMP ####[facility] Quvvaskhvb[address] [place], [place] [address]Dr. Nahed Yañez CO2 [Moles/Vol] 27.1 mmol/L Normal 21.0-32.[address] [facility] Comment on above: Performed By: #### MG COLE, CMP ####[facility] Ueirktbhft9[address] [place], [place] [address]Dr. Nahed Yañez Creatinine [Mass/Vol] 1.16 mg/dL Critically high 0.55-1.02 [facility] Comment on above: Performed By: #### MG COLE, CMP ####[facility] Lxaasfmiin714[address] [place], [place] [address]Dr. Nahed Yañez EGFR-AF MALDIVIAN 58 mL/min/1.73m2 Critically low >=60 [facility] Comment on above: Performed By: #### MG COLE, CMP ####[facility] Pbrezxifpq9811[address] [place], [place] [address]Dr. Nahed Yañez EGFR-NON AF MALDIVIAN 47 mL/min/1.73m2 Critically low >=60 [facility] Comment on above: Performed By: #### MG COLE, CMP ####[facility] Myysmhqedb2345[address] [place], [place] [address]Dr. Nahed Yañez Globulin (S) [Mass/Vol] 3.6 g/dL Normal [facility] Comment on above: Performed By: #### MG COLE, CMP ####[facility] Ktohaukpkj3333[address] [place], [place] [address]Dr. Nahed Yañez Glucose [Mass/Vol] 175 mg/dL Critically high 74-106 [facility] Comment on above: Performed By: #### MG COLE, CMP ####[facility] Ixccbaccvo28[address] [place], [place] [address]Dr. Rosemarieashley Yañez Potassium [Moles/Vol] 3.8 mmol/L Normal 3.5-5.1 [facility] Comment on above: Performed By: #### T RAFITA, MG, CMP ####[facility] Azxtlebgtf3668 [place] [address]Dr. Nahed Yañez Protein [Mass/Vol] 7.0 g/dL Normal 6.4-8.2 [facility] Comment on above: Performed By: #### Nydia ELLER MG, CMP ####[facility] Hvlrbgmfrj3531 [place] [address]Dr. Nahed Yañez Sodium [Moles/Vol] 136 mmol/L Normal 136-145 [facility] Comment on above: Performed By: #### Nydia ELLER MG, CMP ####[facility] Wefyxtrlib7227[address] [place], [place] [address]Dr. Nahed Yañez Urea nitrogen [Mass/Vol] 25.0 mg/dL Critically high 7.0-18.0 [facility] Comment on above: Performed By: #### Nydia ELLER MG, CMP ####[facility] Uulktytlht33[address] [place], [place] [address]Dr. Nahed Yañez Urea nitrogen/Creatinine [Mass ratio] 21.6 mg/mg Normal [facility] Comment on above: Performed By: #### Nydia ELLER MG, CMP ####[facility] Kroptjkmbc994[address] [place], [place] [address]Dr. Nahed Yañez THEOPHYLLINEon 08-01-2022 THEOPHYLLINE 17.1 ug/mL Normal 10.0-20.0 [facility] Comment on above: Performed By: #### MG COLE, CMP ####[facility] Oklybynlta1923[address] [place], [place] [address]Dr. Nahed Yañez CBC AUTO DIFFon 07-31-2022 BASO # 0.0 103/ul Normal 0.0-0.1 [facility] Comment on above: Performed By: #### C BC ####[facility] Awtidilyja2347[address] [place], [place] [address]Dr. Nahed Yañez Basophils/100 WBC (Bld) 0.2 % Normal 0.2-2.0 [facility] Comment on above: Performed By: #### C BC ####[facility] Qnwsvbyifo4547[address] [place], [place] [address]Dr. Nahed Yañez EO # 0.0 103/ul Normal 0.0-0.7 [facility] Comment on above: Performed By: #### C BC ####[facility] Xkvssqgvls5[address] [place] [id number]. Nahed Yañez Eosinophils/100 WBC (Bld) 0.0 % Critically low 0.9-7.0 [facility] Comment on above: Performed By: #### C BC ####[facility] Gvyxzliuwu4626 [place] [address]Dr. Nahed Yañez Erythrocyte distribution width (RBC) [Ratio] 14.2 % Normal 11.0-15.0 [facility] Comment on above: Performed By: #### C BC ####[facility] Migqkuaslk038[address] [place], [place] [address]Dr. Nahed Yañez Hematocrit (Bld) [Volume fraction] 36.0 % Normal 36.0-48.0 [facility] Comment on above: Performed By: #### C BC ####[facility] Emenpllpfm25[address] [place], [place] [address]Dr. Nahed Yañez Hemoglobin (Bld) [Mass/Vol] 11.4 g/dL Critically low 12.0-16.0 [facility] Comment on above: Performed By: #### C BC ####[facility] Kicnmrlllw3325[address] [place], [place] [address]Dr. Nahed Yañez IG # 0.21 10e3/ul Critically high 0.00-0.03 [facility] Comment on above: Performed By: #### C BC ####[facility] Csezkkfggn[address] [place] [id number]. Nahed Yañez IG % 1.8 % Critically high 0.0-0.5 [facility] Comment on above: Performed By: #### C BC ####[facility] Mnoghbtwvh6509[address] [place], [place] [address]Dr. Nahed Yañez LYMPH # 1.3 103/ul Normal 1.2-3.8 [facility] Comment on above: Performed By: #### C BC ####[facility] Zhfinnojqz6137[address] [place], [place] [address]Dr. Nahed Yañez Lymphocytes/100 WBC (Bld) 11.2 % Critically low 20.5-60.0 [facility] Comment on above: Performed By: #### C BC ####[facility] Klssrloiuz7243 [place] [address]Dr. Nahed Yañez MANUAL DIFF REQ NO Normal [facility] Comment on above: Performed By: #### C BC ####[facility] Iuhsroorgy5951 [place] [address]Dr. Nahed Yañez MCH (RBC) [Entitic mass] 27.7 pg Normal 26.7-34.0 [facility] Comment on above: Performed By: #### C BC ####[facility] Cfrgriqjfv0715[address] [place], [place] [address]Dr. Nahed Yañez MCHC (RBC) [Mass/Vol] 31.7 g/dL Normal 29.9-35.2 [facility] Comment on above: Performed By: #### C BC ####[facility] Flvnrrwjwq6922[address] [place], [place] [address]Dr. Nahed Yañez MCV (RBC) [Entitic vol] 87.6 fL Normal 81.0-99.0 [facility] Comment on above: Performed By: #### C BC ####[facility] Cisxzznsze0257[address] [place], [place] [address]Dr. Nahed Yañez MONO # 0.8 103/ul Normal 0.3-0.8 [facility] Comment on above: Performed By: #### C BC ####[facility] Pedkzzntnk997[address] [place], [place] [address]Dr. Nahed Yañez Monocytes/100 WBC (Bld) 7.0 % Normal 1.7-12.0 [facility] Comment on above: Performed By: #### C BC ####[facility] Hotblhdqyn1336[address] [place], [place] [address]Dr. Nahed Yañez NEUT # 9.2 103/ul Critically high 1.4-6.5 [facility] Comment on above: Performed By: #### C BC ####[facility] Vlbqtekqwf1823[address] [place], [place] [address]Dr. Nahed Yañez Neutrophils/100 WBC (Bld) 79.8 % Critically high 43.0-75.0 [facility] Comment on above: Performed By: #### C BC ####[facility] Xqnipwckgd2047 [place] [address]Dr. Nahed Yañez Platelet mean volume (Bld) [Entitic vol] 9.8 fL Normal 9.5-13.5 [facility] Comment on above: Performed By: #### C BC ####[facility] Xjugasvrzc8448 [place] [address]Dr. Nahed Yañez PLT 317 103/ul Normal 150-450 [facility] Comment on above: Performed By: #### C BC ####[facility] Pzedppgdzt8584 [place] [address]Dr. Nahed Yañez RBC 4.11 106/ul Critically low 4.20-5.40 [facility] Comment on above: Performed By: #### C BC ####[facility] Agqocqclwa5779 [place] [address]Dr. Nahed Yañez WBC 11.5 103/ul Critically high 4.0-11.[address] [facility] Comment on above: Performed By: #### C BC ####[facility] Jqiuowhvsj[address] [place], [place] [address]Dr. Nahed Yañez MAGNESIUMon 07-31-2022 Magnesium [Mass/Vol] 1.8 mg/dL Normal 1.8-2.4 [facility] [place] Comment on above: Performed By: #### M JUDY Moore, CMP ####[facility] Mwwxfdidks9404 [place] [address]Dr. Nahed Yañez POINT OF CARE GLUCOSEon -2 0-2022 Glucose [Mass/Vol] 217 mg/dL Critically high 74-106 [facility] Comment on above: Performed By: #### P OCGLUC ####[facility] Xokfxqjrpa3492 [place] [address]Dr. Nahed Yañez Glucose [Mass/Vol] 169 mg/dL Critically high 74-106 [facility] Comment on above: Performed By: #### P OCGLUC ####[facility] Aimbhvjaju0918 [place] [phone]. Nahed Yañez Glucose [Mass/Vol] 297 mg/dL Critically high 74-106 [facility] Comment on above: Performed By: #### P OCGLUC ####[facility] Xwilgudswg8322 [place] [phone]. Nahed Yañez Glucose [Mass/Vol] 233 mg/dL Critically high 74-106 [facility] Comment on above: Performed By: #### P OCGLUC ####[facility] Zpisgrlhsi8545 [place] [address]Dr. Nahed Yañez PROF 14(COMP METB)on 023 Albumin [Mass/Vol] 3.0 g/dL Critically low 3.4-5.0 [facility] Comment on above: Performed By: #### JUDY Castro, CMP ####[facility] Cdufrcexmm5848 [place] [address]Dr. Nahed Yañez Albumin/Globulin [Mass ratio] 0.8 {ratio} Normal [facility] Comment on above: Performed By: #### JUDY Castro, CMP ####[facility] Sbilzxqedr8740 [place] [address]Dr. Nahed Yañez ALP [Catalytic activity/Vol] 83 U/L Normal 46-116 [facility] Comment on above: Performed By: #### JUDY Castro, CMP ####[facility] Rnawoosfvk8479 [place] [address]Dr. Nahed Yañez ALT [Catalytic activity/Vol] 21 U/L Normal 14-59 [facility] [place] Comment on above: Performed By: #### JUDY Castro, CMP ####[facility] Uznwlbbodr1149 [place] [address]Dr. Nahed Yañez Anion gap [Moles/Vol] 14.8 mmol/L Normal [facility] Comment on above: Performed By: #### JUDY Castro, CMP ####[facility] Wymkrvxcnn4451 [place] [address]Dr. Nahed Yañez AST [Catalytic activity/Vol] 13 U/L Critically low 15-37 [facility] Comment on above: Performed By: #### JUDY Castro CMP ####[facility] Lvskckpbtf4127[address] [place], [place] [address]Dr. Nahed Yañez Bilirubin [Mass/Vol] 0.2 mg/dL Normal 0.2-1.0 [facility] Comment on above: Performed By: #### JUDY Castro CMP ####[facility] Ebbhafeiub978[address] [place], [place] [address]Dr. Nahed Yañez Calcium [Mass/Vol] 9.2 mg/dL Normal 8.5-10.1 [facility] Comment on above: Performed By: #### JUDY Castro, CMP ####[facility] Mnrdxtitnd0088[address] [place], [place] [address]Dr. Nahed Yañez Chloride [Moles/Vol] 101 mmol/L Normal 98-107 [facility] Comment on above: Performed By: #### JUDY Castro, CMP ####[facility] Psmycmbnjb232[address] [place], [place] [address]Dr. Nahed Yañez CO2 [Moles/Vol] 26.5 mmol/L Normal 21.0-32.0 [facility] Comment on above: Performed By: #### JUDY Castro, CMP ####[facility] Alevwygfky3325[address] [place], [place] [address]Dr. Nahed Yañez Creatinine [Mass/Vol] 1.04 mg/dL Critically high 0.55-1.02 [facility] Comment on above: Performed By: #### JUDY Castro, CMP ####[facility] Whmpsyufee4170[address] [place], [place] [address]Dr. Nhaed Yaeñz EGFR-AF MALDIVIAN >60 Normal >=[address] [facility] Comment on above: Performed By: #### JUDY Castro CMP ####[facility] Biuleklyjs915[address] [place], [place] [address]Dr. Nahed Yañez EGFR-NON AF MALDIVIAN 54 mL/min/1.73m2 Critically low >=60 [facility] [place] Comment on above: Performed By: #### JUDY Castro, CMP ####[facility] Rbmwuezbym3027 [place] [address]Dr. Nahed Yañez Globulin (S) [Mass/Vol] 3.6 g/dL Normal [facility] Comment on above: Performed By: #### JUDY Castro, CMP ####[facility] Flzurpdvgi7992 [place] [address]Dr. Nahed Yañez Glucose [Mass/Vol] 171 mg/dL Critically high 74-106 [facility] Comment on above: Performed By: #### JUDY Castro, CMP ####[facility] Gkrniqfgrc7929[address] [place], [place] [address]Dr. Rosemarieashley Yañez Potassium [Moles/Vol] 3.3 mmol/L Critically low 3.5-5.1 [facility] Comment on above: Performed By: #### JUDY Castro CMP ####[facility] Khjxbctroi118[address] [place], [place] [address]Dr. Nahed Yañez Protein [Mass/Vol] 6.6 g/dL Normal 6.4-8.2 [facility] Comment on above: Performed By: #### JUDY Castro CMP ####[facility] Beccixmofy604[address] [place], [place] [address]Dr. Nahed Otilio Sodium [Moles/Vol] 139 mmol/L Normal 136-145 [facility] Comment on above: Performed By: #### JUDY Castro, CMP ####[facility] Xgjevpzssi7580[address] [place], [place] [address]Dr. Nahed Otilio Urea nitrogen [Mass/Vol] 23.0 mg/dL Critically high 7.0-18.0 [facility] Comment on above: Performed By: #### JUDY Castro, CMP ####[facility] Gfojfvcrtk7[address] [place], [place] [address]Dr. Rosemarieashley Otilio Urea nitrogen/Creatinine [Mass ratio] 22.1 mg/mg Normal [facility] Comment on above: Performed By: #### JUDY Castro CMP ####[facility] Fixretziqy0505[address] [place], [place] [address]Dr. Nahed Yañez THEOPHYLLINEon 07-31-2022 THEOPHYLLINE 14.2 ug/mL Normal 10.0-20.0 [facility] Comment on above: Performed By: #### M JUDY Moore, [facility] ####[facility] Wguyobshds5209 [place] [address]Dr. Nahed Yañez BLOOD CULTURE ID PANELon A. baumannii Not detected Normal NOT DETECTED [facility] Comment on above: Performed By: #### B CID2 ####[facility] Qhdmoceaxh1986 [place] [address]Dr. Nahed Yañez Bacteriodes fragilis Not detected Normal NOT DETECTED [facility] Comment on above: Performed By: #### B CID2 ####[facility] Zjmfhjyijg9913[address] [place], [place] [address]Dr. Nahed Yañez BCID CONTROLS PASSED Normal [facility] Comment on above: Performed By: #### B CID2 ####[facility] Twguzpvkla3995 [place] [address]Dr. Rosemarieashley Otilio BCIDBTHD BLOOD CULTURE BOTTLE INFORMATION Normal [facility] Comment on above: Performed By: #### B CID2 ####[facility] Nnxwebnjot8022 [place] [address]Dr. Yiashley Yañez BCIDHD1 ANTIMICROBIAL RESISTANCE GENES Normal [facility] Comment on above: Performed By: #### B CID2 ####[facility] Ppwqemdngt4572 [place] [address]Dr. Nahed Yañez BCIDHD2 SEE BELOW Normal [facility] Comment on above: Result Comment: Note : Antimicrobial resitance can occur via multiple mechanisms. A Not Detected result for the [employer] antomicrobial resistance gene assays does not indicate antimicrobial susceptibility. Subculturing is required for species identification and susceptibility testing of isolates. Performed By: #### B CID2 ####[facility] Lpiondgidw128[address] [place], [place] [address]Dr. Nahed Yañez BCIDHD3 Positive Normal [facility] Comment on above: Performed By: #### B CID2 ####[facility] Nuggqhkhkd866[address] [place], [place] [address]Dr. Nahed Yañez BCIDHD4 Negative Normal [facility] Comment on above: Performed By: #### B CID2 ####[facility] Dkcfdbycgx0940 [place] [address]Dr. Nahed Yañez BCIDHD5 YEAST Normal [facility] Comment on above: Performed By: #### B CID2 ####[facility] Rvihvmqbzm9196 [place] [address]Dr. Yilan Yañez Bottle Set: Set 2 Normal [facility] Comment on above: Performed By: #### B CID2 ####[facility] Plxkiodjvm6[address] [place], [place] [address]Dr. Nahed Yañez Bottle: Pediatric Normal [facility] Comment on above: Performed By: #### B CID2 ####[facility] Kxunjcqddr905[address] [place], [place] [address]Dr. Nahed Yañez C. neoformans/gattii Not detected Normal NOT DETECTED [facility] Comment on above: Performed By: #### B CID2 ####[facility] Uplqcbazxd7839[address] [place], [place] [address]Dr. Yiashley Yañez Sil albicans Not detected Normal NOT DETECTED [facility] Comment on above: Performed By: #### B CID2 ####[facility] Wfzrbdoyuf[address] [place], [place] [address]Dr. Nahed Yañez Sil auris Not detected Normal NOT DETECTED [facility] Comment on above: Performed By: #### B CID2 ####[facility] Bpgxbmdtfq5314[address] [place], [place] [address]Dr. Yiashley Yañez Sil glabrata Not detected Normal NOT DETECTED [facility] Comment on above: Performed By: #### B CID2 ####[facility] Veqdklfrte6530 [place] [address]Dr. Yiashley Yañez Sil Krusei Not detected Normal NOT DETECTED [facility] Comment on above: Performed By: #### B CID2 ####[facility] Kgpfydkpvf4904 [place] [address]Dr. Yiashley Yañez Sil Parapsilosis Not detected Normal NOT DETECTED [facility] Comment on above: Performed By: #### B CID2 ####[facility] Xwlrtlwmix9[address] [place], [place] [address]Dr. Nahed Yañez Sil Tropicalis Not detected Normal NOT DETECTED [facility] Comment on above: Performed By: #### B CID2 ####[facility] Ceahmqydcw[address]15[address] [place], [place] [address]Dr. Nahed Yañez CTX-M Resistant Gene Not Applicable Normal NOT DETECTE D [facility] Comment on above: Performed By: #### B CID2 ####[facility] Slrarfazis157[address] [place], [place] [address]Dr. Nahed Yañez E. Cloacae complex Not detected Normal NOT DETECTED [facility] Comment on above: Performed By: #### B CID2 ####[facility] Hkivbnzjbf6650[address] [place], [place] [address]Dr. Nahed Yañez E. faecalis Not detected Normal NOT DETECTED [facility] Comment on above: Performed By: #### B CID2 ####[facility] Rwrfceicta118[address] [place], [place] [address]Dr. Nahed Yañez E. faecium Not detected Normal NOT DETECTED [facility] Comment on above: Performed By: #### B CID2 ####[facility] Eihhszpdgq7409[address] [place], [place] [address]Dr. Nahed Yañez Enterobacteriaceae Not detected Normal NOT DETECTED [facility] Comment on above: Performed By: #### B CID2 ####[facility] Cbgrotrlae601[address] [place], [place] [address]Dr. Nahed Yañez Escherichia coli Not detected Normal NOT DETECTED [facility] Comment on above: Performed By: #### B CID2 ####[facility] Roddzfzqvi643[address] [place], [place] [address]Dr. Nahed Yañez H. influenzae Not detected Normal NOT DETECTED [facility] Comment on above: Performed By: #### B CID2 ####[facility] Ucywhwtqhl090[address] [place], [place] [address]Dr. Nahed Yañez IMP Resistant Gene Not Applicable Normal NOT DETECTED [facility] Comment on above: Performed By: #### B CID2 ####[facility] Zizinkmouo9265[address] [place], [place] [address]Dr. Nahed Yañez K. oxytoca Not detected Normal NOT DETECTED [facility] Comment on above: Performed By: #### B CID2 ####[facility] Ojjenzbtiv550[address] [place], [place] [address]Dr. Nahed Otilio K. pneumoniae Not detected Normal NOT DETECTED [facility] Comment on above: Performed By: #### B CID2 ####[facility] Oftaofezmb2814[address] [place], [place] [address]Dr. Nahed Otilio Klebsiella aerogenes Not detected Normal NOT DETECTED [facility] Comment on above: Performed By: #### B CID2 ####[facility] Rhstgtcdct553[address] [place], [place] [address]Dr. Nahed Yañez KPC Resistant Gene Not detected Normal NOT DETECTED [facility] Comment on above: Performed By: #### B CID2 ####[facility] Wnbycyayko207[address] [place], [place] [address]Dr. Nahed Yañez List. monocytogenes Not detected Normal NOT DETECTED [facility] Comment on above: Performed By: #### B CID2 ####[facility] Xehjxazbab864[address] [place], [place] [address]Dr. Rosemarieashley Otilio Mcr-1 Resistant Gene Not Applicable Normal NOT DETECTE D [facility] Comment on above: Performed By: #### B CID2 ####[facility] Ixnkwpfsel4[address] [place], [place] [address]Dr. Rosemarielan Otilio mecA/C Not Applicable Normal NOT DETECTED [facility] Comment on above: Performed By: #### B CID2 ####[facility] Foekapejfc4950[address] [place], [place] [address]Dr. Rosemarieashley Otilio mecA/C MREJ Not Applicable Normal NOT DETECTED [facility] Comment on above: Performed By: #### B CID2 ####[facility] Gzxpuenzrq178[address] [place], [place] [address]Dr. Nahed Yañez N. meningitidis Not detected Normal NOT DETECTED [facility] Comment on above: Performed By: #### B CID2 ####[facility] Wythxmwbzy[address] [place], [place] [address]Dr. Nahed Yañez NDM Resistant Gene Not Applicable Normal NOT DETECTED [facility] Comment on above: Performed By: #### B CID2 ####[facility] Luoxpoykco[address] [place], [place] [address]Dr. Nahed Yañez Oxa-48-like Not Applicable Normal NOT DETECTED The [facility] Comment on above: Performed By: #### B CID2 ####[facility] Mckvifornb07[address] [place], [place] [address]Dr. Rosemarieashley Yañez Proteus Not detected Normal NOT DETECTED The [facility] Comment on above: Performed By: #### B CID2 ####[facility] Drqgqxlfbk9732[address] [place], [place] [address]Dr. Nahed Yañez Pseud. aeruginosa Not detected Normal NOT DETECTED [facility] Comment on above: Performed By: #### B CID2 ####[facility] Rueajbupau6[address] [place], [place] [address]Dr. Nahed Yañez S. maltophilia Not detected Normal NOT DETECTED [facility] Comment on above: Performed By: #### B CID2 ####[facility] Rdxneohxij717[address] [place], [place] [address]Dr. Rosemarieashley Yañez Salmonella Not detected Normal NOT DETECTED The [facility] Comment on above: Performed By: #### B CID2 ####[facility] Nqwesotian2504[address] [place], [place] [address]Dr. Nahed Yañez Seratia marcescens Not detected Normal NOT DETECTED [facility] Comment on above: Performed By: #### B CID2 ####[facility] Mzdjxnwakq9[address] [place], [place] [address]Dr. Nahed Yañez Site: R AC Normal [facility] Comment on above: Performed By: #### B CID2 ####[facility] Ieutzaenuc12[address] [place], [place] [address]Dr. Nahed Yañez Staph. aureus Not detected Normal NOT DETECTED The [facility] Comment on above: Performed By: #### B CID2 ####[facility] Fbkygdcswl70[address] [place], [place] [address]Dr. Nahed Yañez Staph. epidermidis Not detected Normal NOT DETECTED [facility] Comment on above: Performed By: #### B CID2 ####[facility] Xynhhygfsw[address] [place], [place] [address]Dr. Nahed Yañez Staph. lugdunensis Not detected Normal NOT DETECTED [facility] Comment on above: Performed By: #### B CID2 ####[facility] Wtshdninjq557[address] [place], [place] [address]Dr. Nahed Yañez Staphylococcus Detected Critically abnormal NOT DETECTED [facility] Comment on above: Performed By: #### B CID2 ####[facility] Djcfqarogi0925[address] [place], [place] [address]Dr. Nahed Yañez Strep. agalactiae Not detected Normal NOT DETECTED [facility] Comment on above: Performed By: #### B CID2 ####[facility] Kudxxsxxui069[address] [place], [place] [address]Dr. Nahed Yañez Strep. pneumoniae Not detected Normal NOT DETECTED [facility] Comment on above: Performed By: #### B CID2 ####[facility] Slikzbeeoc1699[address] [place], [place] [address]Dr. Nahed Yañez Strep. pyogenes Not detected Normal NOT DETECTED The [facility] Comment on above: Performed By: #### B CID2 ####[facility] Kboieuyrwh052[address] [place], [place] [address]Dr. Nahed Yañez Streptococcus Not detected Normal NOT DETECTED The [facility] Comment on above: Performed By: #### B CID2 ####[facility] Jlismvyjil6399[address] [place], [place] [address]Dr. Nahed Yañez Tucker/B Resist. Gene Not detected Normal NOT DETECTED [facility] Comment on above: Performed By: #### B CID2 ####[facility] Jzyfzgmmkf701[address] [place], [place] [address]Dr. Nahed Yañez VIM Resistant Gene Not Applicable Normal NOT DETECTED [facility] Comment on above: Performed By: #### B CID2 ####[facility] Diwzfgankc3250[address] [place], [place] [address]Dr. Nahed Yañez CARDIAC FRANCISCO 3-6on 3 CK [Catalytic activity/Vol] 25 U/L Critically low 26-192 [facility] Comment on above: Performed By: #### C MREP ####[facility] [address]zfcum[address] [place] [id number]. Nahed Yañez CK.MB [Mass/Vol] ng/mL Normal <=3.[address] [facility] Comment on above: Performed By: #### C MREP ####[facility] Npalhkifxv37[address] [place] [phone]. Nahed Yañez HSTROP 35.8 pg/mL Normal 4.0-51.3 [facility] Comment on above: Result Comment: CUT- OFF POINTS HAVE BEEN ESTABLISHED BASED ON THE FOURTH UNIVERSAL DEFINITIONS OF MYOCARDIALINFARCTION. THE UPPER REFERENCE LIMIT (URL) OF TROPONIN, DEFINED THE 99TH PERCENTILE OFcTnI DISTRIBUTION IN A REFERENCE POPULATION, HAS BEEN CONFIRMED THE DECISION THRESHOLDFOR [place] DIAGNOSIS. Performed By: #### C MREP ####[facility] [address] [place] [address]Dr. Nahed Yañez CK [Catalytic activity/Vol] 28 U/L Normal 26-192 [facility] Comment on above: Performed By: #### C MREP ####[facility] Oxpsgeejwt3858 [place] [id number]. Nahed Yañez CK.MB [Mass/Vol] ng/mL Normal <=3.[address] [facility] Comment on above: Performed By: #### C MREP ####[facility] Qpbzcjwnzz9049 [place] [address]Dr. Nahed Yañez HSTROP 36.8 pg/mL Normal 4.0-51.3 [facility] Comment on above: Result Comment: CUT- OFF POINTS HAVE BEEN ESTABLISHED BASED ON THE FOURTH UNIVERSAL DEFINITIONS OF MYOCARDIALINFARCTION. THE UPPER REFERENCE LIMIT (URL) OF TROPONIN, DEFINED THE 99TH PERCENTILE OFcTnI DISTRIBUTION IN A REFERENCE POPULATION, HAS BEEN CONFIRMED THE DECISION THRESHOLDFOR [place] DIAGNOSIS. Performed By: #### C MREP ####[facility] Aoeqnzeqxd[address] [place] [address]Dr. Nahed Yañez CBC AUTO DIFFon 07-30-2022 BASO # 0.0 103/ul Normal 0.0-0.1 [facility] Comment on above: Performed By: #### C BC ####[facility] Lyhicgokbd[address] [place] [phone]. Nahed Yañez Basophils/100 WBC (Bld) 0.1 % Critically low 0.2-2.0 [facility] Comment on above: Performed By: #### C BC ####[facility] Pfexuecpqb1719 [place] [phone]. Nahed Yañez EO # 0.0 103/ul Normal 0.0-0.7 [facility] Comment on above: Performed By: #### C BC ####[facility] Njmffskqtk6561 [place] [address]Dr. Nahed Yañez Eosinophils/100 WBC (Bld) 0.0 % Critically low 0.9-7.0 [facility] Comment on above: Performed By: #### C BC ####[facility] Uwmxuhnudf2914[address] [place], [place] [address]Dr. Nahed Yañez Erythrocyte distribution width (RBC) [Ratio] 14.4 % Normal 11.0-15.0 [facility] Comment on above: Performed By: #### C BC ####[facility] Ttpaewlgpd85[address] [place], [place] [address]Dr. Nahed Yañez Hematocrit (Bld) [Volume fraction] 37.7 % Normal 36.0-48.0 [facility] Comment on above: Performed By: #### C BC ####[facility] Dgnfcsqdsy515[address] [place], [place] [address]Dr. Nahed Yañez Hemoglobin (Bld) [Mass/Vol] 12.1 g/dL Normal 12.0-16.0 [facility] Comment on above: Performed By: #### C BC ####[facility] Kpmynuqvbz[address] [place], [place] [address]Dr. Nahed Yañez IG # 0.07 10e3/ul Critically high 0.00-0.03 [facility] Comment on above: Performed By: #### C BC ####[facility] Wntlcrbmdb[address] [place], [place] [address]Dr. Nahed Yañez IG % 0.5 % Normal 0.0-0.5 [facility] Comment on above: Performed By: #### C BC ####[facility] Dwdxcjvejk2917 [place] [phone]. Nahed Yañez LYMPH # 1.0 103/ul Critically low 1.2-3.8 The [facility] Comment on above: Performed By: #### C BC ####[facility] Fvgrxgrytt5484 [place] [phone]. Nahed Yañez Lymphocytes/100 WBC (Bld) 7.6 % Critically low 20.5-60.0 [facility] Comment on above: Performed By: #### C BC ####[facility] Kwtpsekkxj1196 [place] [phone]. Nahed Yañez MANUAL DIFF REQ NO Normal [facility] Comment on above: Performed By: #### C BC ####[facility] Bjdguwhaaf7432 [place] [phone]. Nahed Yañez MCH (RBC) [Entitic mass] 28.8 pg Normal 26.7-34.0 [facility] Comment on above: Performed By: #### C BC ####[facility] Ixuncnudbz1198 [place] [phone]. Nahed Yañez MCHC (RBC) [Mass/Vol] 32.1 g/dL Normal 29.9-35.2 [facility] Comment on above: Performed By: #### C BC ####[facility] Nzogzxyacc9642 [place] [phone] Yañez MCV (RBC) [Entitic vol] 89.8 fL Normal 81.0-99.0 [facility] Comment on above: Performed By: #### C BC ####[facility] Omuciesruu5394 [place] [phone] Yañez MONO # 0.2 103/ul Critically low 0.3-0.8 [facility] Comment on above: Performed By: #### C BC ####[facility] Hkzdfxbctw3298 [place] [phone]. Nahed Yañez Monocytes/100 WBC (Bld) 1.5 % Critically low 1.7-12.0 [facility] Comment on above: Performed By: #### C BC ####[facility] Hpddsmxzhr5617 [place] [phone]. Nahed Yañez NEUT # 11.7 103/ul Critically high 1.4-6.5 [facility] Comment on above: Performed By: #### C BC ####[facility] Mlnxqgvacf2651 [place] [phone]. Nahed Yañez Neutrophils/100 WBC (Bld) 90.3 % Critically high 43.0-75.0 [facility] Comment on above: Performed By: #### C BC ####[facility] Ulbfdsztbb4976 [place] [phone]. Naehd Yañez Platelet mean volume (Bld) [Entitic vol] 9.9 fL Normal 9.5-13.5 [facility] Comment on above: Performed By: #### C BC ####[facility] Cvkxjnutwv1647 [place] [address]Dr. Nahed Yañez PLT 319 103/ul Normal 150-450 [facility] Comment on above: Performed By: #### C BC ####[facility] Qvpsgeykmf[address] [place], [place] [address]Dr. Nahed Yañez RBC 4.20 106/ul Normal 4.20-5.40 [facility] Comment on above: Performed By: #### C BC ####[facility] Ncmblkfaos[address] [place], [place] [address]Dr. Nahed Yañez WBC 13.0 103/ul Critically high 4.0-11.[address] [facility] Comment on above: Performed By: #### C BC ####[facility] Wfjeecjmkp77[address] [place] [phone]. Nahed Yañez CULTURE BLOODon 07-30-2022 Microscopic examination of blood, culture Culture Observations: NO GROWTH AT 5 DAYS. Normal [facility] Comment on above: Performed By: #### B LDCX1 ####[facility] Zxcausosfh3230 [place] [phone]. Nahed Yañez CULTURE SPUTUMon 07-30-2022 CULTURE SPUTUM Culture Observations : NORMAL RESPIRATORY MIGUEL. Normal [facility] Comment on above: Performed By: #### S PUTCX ####[facility] Fsgrepqosb18[address] [place] [address]Dr. Nahed Yañez CULTURE URINEon 07-30-2022 CULTURE URINE Culture Observations : MODERATE GROWTH OF MIXED GENITAL MIGUEL. NO POTENTIAL PATHOGENS SEEN. Normal [facility] Comment on above: Performed By: #### U RCX ####[facility] Eaftgqwojv92[address] [place] [address]Dr. Nahed Yañez Covid-19 PCR (CVDTB)on 07-12 SARS-CoV-2 (COVID-19) RNA MIRNA+probe Ql (Unsp spec) Not detected Normal NOT DETECTED [facility] Comment on above: Result Comment: [...] for this test is supported by the [place] [employer] and [employer]'s declaration that [...] be used). Performed By: #### C VDTBH ####[facility] Ociyeqglrn[address] [place] [phone]. Nahed Yañez ER URINE PROFILEon 3 Bilirubin Ql (U) Negative Normal NEGATIVE The [facility] Comment on above: Performed By: #### E YARELIS ALCARAZ ####[facility] Zdgwatdqlw1723 [place] [phone]. Nahed Yañez Clarity (U) CLEAR Normal CLEAR [facility] Comment on above: Performed By: #### E YARELIS ALCARAZ ####[facility] Hcrjhnqhgl4033 [place] [address]Dr. Nahed Yañez Color (U) LT. YELLOW Normal YELLOW [facility] Comment on above: Performed By: #### NUNU DOVERO ####[facility] Dzuhpbebmx7[address] [place] [address]Dr. Nahed Yañez ERUAHD A micrscopic examination will be performed if indicated. Normal [facility] Comment on above: Performed By: #### NUNU DOVERO ####[facility] Rmobumfici[address]51 [place] [address]Dr. Nahed Yañez Glucose Ql (U) 500 mg/dl Abnormal NEGATIVE The [facility] Comment on above: Performed By: #### NUNU DOVERO ####[facility] Ndunrfqvhc64[address] [place], [place] [address]Dr. Nahed Yañez Hemoglobin Ql (U) Negative Normal NEGATIVE The [facility] Comment on above: Performed By: #### NUNU DOVERO ####[facility] Uatuepckyw9516[address] [place], [place] [address]Dr. Nahed Yañez Ketones Ql (U) Negative Normal NEGATIVE [facility] Comment on above: Performed By: #### YARELIS DOVE ####[facility] Xvhbonifem4569[address] [place], [place] [address]Dr. Nahed Yañez LEUKOCYTES TRACE Abnormal NEGATIVE [facility] Comment on above: Performed By: #### NUNU DOVERO ####[facility] Rvbifawbud8832[address] [place], [place] [address]Dr. Nahed Yañez Nitrite Ql (U) Negative Normal NEGATIVE [facility] Comment on above: Performed By: #### NUNU DOVERO ####[facility] Yidzhdnxih3760[address] [place], [place] [address]Dr. Nahed Yañez pH (U) 6.0 [pH] Normal 5-9 [facility] Comment on above: Performed By: #### YARELIS DOVE ####[facility] Jqmyibtnho6613[address] [place], [place] [address]Dr. Nahed Yañez SPEC GRAVITY >=1.030 Abnormal 1.005-<=1.02 5 [facility] Comment on above: Performed By: #### YARELIS DOVE ####[facility] Oneoxalbhd609[address] [place], [place] [address]Dr. Nahed Yañez UA PROTEIN Negative Normal NEGATIVE/ TRACE [facility] Comment on above: Performed By: #### YARELIS DOVE ####[facility] Jdeztzotgr929[address] [place], [place] [address]Dr. Nahed Yañez UR MICRO IND INDICATED Normal [facility] Comment on above: Performed By: #### YARELIS DOVE ####[facility] Ejeepqmkgi61988[address] [place], [place] [address]Dr. Nahed Yañez Urobilinogen Qn (U) 0.2 {Alem'U}/dL Normal 0.2 - 1. 0 [facility] Comment on above: Performed By: #### YARELIS DOVE ####[facility] Riawvjaiac7610[address] [place], [place] [address]Dr. Nahed Yañez INFLUENZA A AND B AGon 07-30 INFLUANEGH SEE BELOW Normal [facility] Comment on above: Result Comment: Nega tive for Flu A protein angiten. Infection due to Flu A cannot be ruled out. Flu A angiten in the sample may be below the detection limit of the test. Performed By: #### I NFLUAB ####[facility] Uxyirrpiep0624[address] [place], [place] [address]Dr. Nahed Yañez INFLUBNEGH SEE BELOW Normal [facility] Comment on above: Result Comment: Nega tive for Flu B protein antigen. Infection due to Flu B cannot be ruled out. Flu B antigen in the sample may be below the detection limit of the test. Performed By: #### I NFLUAB ####[facility] Jiaxvjhbnn160[address] [place], [place] [address]Dr. Nahed Yañez INFLUENZA A AG Negative Normal NEGATIVE SEE COMMENT [facility] Comment on above: Performed By: #### I NFLUAB ####[facility] Hnqlmpkwqm260[address] [place], [place] [address]Dr. Nahed Yañez INFLUENZA B AG Negative Normal NEGATIVE SEE COMMENT [facility] Comment on above: Performed By: #### I NFLUAB ####[facility] Gixqaqlrvg357[address] [place], [place] [address]Dr. Nahed Yañez LACTATE/LACTIC ACIDon 2022 Lactate [Moles/Vol] 2.5 mmol/L Critically high 0.4-2.0 [facility] Comment on above: Performed By: #### L ACT ####[facility] Mymitbptmh786[address] [place], [place] [address]Dr. Nahed Yañez Lactate [Moles/Vol] 3.3 mmol/L Critically high 0.4-2.0 [facility] Comment on above: Performed By: #### L ACT ####[facility] Loulqvstgy3387[address] [place], [place] [address]Dr. Nahed Yañez Lactate [Moles/Vol] 2.7 mmol/L Critically high 0.4-2.0 [facility] Comment on above: Performed By: #### L ACT ####[facility] Naacdpeout802[address] [place], [place] [address]Dr. Nahed Yañez Lactate [Moles/Vol] 2.8 mmol/L Critically high 0.4-2.0 [facility] Comment on above: Performed By: #### L ACT ####[facility] Mzpxhgphdf857[address] [place], [place] [address]Dr. Nahed Yañez MAGNESIUMon 07-30-2022 Magnesium [Mass/Vol] 1.9 mg/dL Normal 1.8-2.4 [facility] Comment on above: Performed By: #### M G, CMP ####[facility] Pdvxwxmedt5777[address] [place], [place] [address]Dr. Nahed Yañez POINT OF CARE GLUCOSEon 07-12 Glucose [Mass/Vol] 220 mg/dL Critically high -106 [facility] Comment on above: Performed By: #### P OCGLUC ####[facility] Buvdaeyuao14[address] [place], [place] [address]Dr. Nahed Yañez Glucose [Mass/Vol] 162 mg/dL Critically high 74-106 [facility] Comment on above: Result Comment: Kaycee clemons Meter Performed By: #### P OCGLUC ####[facility] Yiddettnvc8719 [place] [address]Dr. Nahed Yañez PROF 14(COMP METB)on 023 Albumin [Mass/Vol] 2.9 g/dL Critically low 3.4-5.0 [facility] Comment on above: Performed By: #### Pablo Moore, CMP ####[facility] Cjyblxptjn27[address] [place], [place] [address]Dr. Nahed Yañez Albumin/Globulin [Mass ratio] 0.8 {ratio} Normal [facility] Comment on above: Performed By: #### Pablo Moore, CMP ####[facility] Xpcursegtx8485[address] [place], [place] [address]Dr. Nahed Yañze ALP [Catalytic activity/Vol] 94 U/L Normal 46-116 [facility] Comment on above: Performed By: #### Pablo Moore, CMP ####[facility] Zsjthmifts080[address] [place], [place] [address]Dr. Nahed Yañez ALT [Catalytic activity/Vol] 22 U/L Normal 14-59 [facility] Comment on above: Performed By: #### Pablo Moore, CMP ####[facility] Oyepbclpmd10[address] [place], [place] [address]Dr. Nahed Yañez Anion gap [Moles/Vol] 12.4 mmol/L Normal [facility] Comment on above: Performed By: #### Pablo Moore, CMP ####[facility] Kzwgkeppmp695[address] [place], [place] [address]Dr. Nahed Yañez AST [Catalytic activity/Vol] 18 U/L Normal 15-37 [facility] Comment on above: Performed By: #### Pablo Moore, CMP ####[facility] Vzfctdycbd801[address] [place], [place] [address]Dr. Nahed Yañez Bilirubin [Mass/Vol] 0.1 mg/dL Critically low 0.2-1.0 [facility] Comment on above: Performed By: #### Pablo Moore, CMP ####[facility] Sytsfelunx308[address] [place], [place] [address]Dr. Nahed Yañez Calcium [Mass/Vol] 8.9 mg/dL Normal 8.5-10.1 [facility] Comment on above: Performed By: #### M Teresa, CMP ####[facility] Nrnktqzlif1262 [place] [address]Dr. Nahed Yañez Chloride [Moles/Vol] 99 mmol/L Normal 98-107 [facility] Comment on above: Performed By: #### M G, CMP ####[facility] Bubfmdvqpp5874 [place] [address]Dr. Nahed Yañez CO2 [Moles/Vol] 26.0 mmol/L Normal 21.0-32.0 [facility] Comment on above: Performed By: #### Pablo Moore, CMP ####[facility] Qtpkzlhhqp040[address] [place], [place] [address]Dr. Nahed Yañez Creatinine [Mass/Vol] 1.16 mg/dL Critically high 0.55-1.02 [facility] Comment on above: Performed By: #### Pablo Moore, CMP ####[facility] Wbsermeoww2064[address] [place], [place] [address]Dr. Nahed Otilio EGFR-AF MALDIVIAN 58 mL/min/1.73m2 Critically low >=60 [facility] Comment on above: Performed By: #### Pablo Moore, CMP ####[facility] Nvpikeoovd8845[address] [place], [place] [address]Dr. Nahed Otilio EGFR-NON AF MALDIVIAN 47 mL/min/1.73m2 Critically low >=60 [facility] Comment on above: Performed By: #### Pablo Moore, CMP ####[facility] Uwfpbalrwl5482 [place] [address]Dr. Nahed Otilio Globulin (S) [Mass/Vol] 3.7 g/dL Normal [facility] Comment on above: Performed By: #### Pablo Moore, CMP ####[facility] Ahskqvznti5386 [place] [address]Dr. Nahed Yañez Glucose [Mass/Vol] 267 mg/dL Critically high 74-106 T [facility] Comment on above: Performed By: #### Pablo Moore, CMP ####[facility] Ltbkpaqchz1711 [place] [address]Dr. Nahed Yañez Potassium [Moles/Vol] 4.4 mmol/L Normal 3.5-5.1 [facility] Comment on above: Performed By: #### Pablo G, CMP ####[facility] Lcbuzrirpf[address] [place], [place] [address]Dr. Nahed Yañez Protein [Mass/Vol] 6.6 g/dL Normal 6.4-8.2 [facility] Comment on above: Performed By: #### Pablo Moore, CMP ####[facility] Hilunfbfyn0594 [place] [address]Dr. Nahed Yaeñz Sodium [Moles/Vol] 133 mmol/L Critically low 136-145 [facility] Comment on above: Performed By: #### Pablo Moore, CMP ####[facility] Bbdoughwbz927[address] [place], [place] [address]Dr. Nahed Yañez Urea nitrogen [Mass/Vol] 33.0 mg/dL Critically high 7.0-18.0 [facility] Comment on above: Performed By: #### Pablo Moore, CMP ####[facility] Icxuuzaapx944[address] [place], [place] [address]Dr. Nahed Yañez Urea nitrogen/Creatinine [Mass ratio] 28.4 mg/mg Normal [facility] Comment on above: Performed By: #### Pablo Moore, CMP ####[facility] Saiagbncgm[address] [place], [place] [address]Dr. Nahed Yañez SPUTUM GRAM STAINon 07-31-19 COMMENTS Normal [facility] Comment on above: Performed By: #### S PUTGS ####[facility] Uilrrheczq7[address] [place], [place] [address]Dr. Nahed Yañez DIPHTHEROIDS Normal [facility] Comment on above: Performed By: #### S PUTGS ####[facility] Erwgukczzh7[address] [place], [place] [address]Dr. Nahed Yañez EPITHELIALS <25 Normal [facility] Comment on above: Performed By: #### S PUTGS ####[facility] Kkrlwiqmms[address] [place], [place] [address]Dr. Nahed Yañez FUNGAL ELEMENTS Normal [facility] [facility] Comment on above: Performed By: #### S PUTGS ####[facility] T[address]fe[address]pbf[address] [place] [address]Dr. Nahed Yañez GRAM NEG BACILLI Normal The [facility] Comment on above: Performed By: #### S PUTGS ####[facility] Nfjlcnmhrb[address] [place] [address]Dr. Nahed Yañez GRAM NEG DIPPLOCOCCI Normal [facility] Comment on above: Performed By: #### S PUTGS ####[facility] Ghylggssgv5153 [place] [address]Dr. Nahed Yañez GRAM POS BACILLI FEW Normal [facility] Comment on above: Performed By: #### S PUTGS ####[facility] Nghdbhdgid5796 [place] [address]Dr. Nahed Yañez GRAM POSITIVE COCCI FEW Normal The [facility] Comment on above: Performed By: #### S PUTGS ####[facility] Arjhzmodmy[address] [place], [place] [address]Dr. Nahed Yañez WBC (Bld) [#/Vol] 10*3/uL Normal The [facility] Comment on above: Performed By: #### S PUTGS ####[facility] Pqvfmqptmi[address] [place], [place] [address]Dr. Nahed Yañez URINE MICROSCOPIC ONLYon BACTERIA SMALL Abnormal NONE SEEN [facility] Comment on above: Performed By: #### YARELIS DOVE ####[facility] Wrsrzflvnx23[address] [place] [address]Dr. Nahed Yañez Bacteria identified Cx Nom (U) INDICATED Normal [facility] Comment on above: Performed By: #### NUNU DOVERO ####[facility] Irkbviskby[address] [place] [address]Dr. Nahed Yañez CAST NONE SEEN Normal NONE SEEN [facility] Comment on above: Performed By: #### NUNU DOVERO ####[facility] Ppwqgelrhq7141 [place] [address]Dr. Nahed Yañez Crystals LM Nom (Urine sed) NONE SEEN Normal NONE SEEN [facility] Comment on above: Performed By: #### Isidoro ALCARAZ UMICRO ####[facility] Xwmfomtyhn18[address] [place] [address]Dr. Nahed Yañez Epithelial cells LM Ql (Urine sed) FEW Abnormal NONE SEEN /RARE [facility] Comment on above: Performed By: #### Isidoro ALCARAZ UMICRO ####[facility] Kccivgrzxy[address] [place] [id number]. Nahed Yañez MUCOUS TRACE Abnormal NONE SEEN [facility] Comment on above: Performed By: #### Isidoro ALCARAZ UMICRO ####[facility] Qdiqibadlx5713 [place] [phone]. Nahed Yañez RBC 0-2 Normal 0-2 [facility] Comment on above: Performed By: #### Isidoro ALCARAZ UMICRO ####[facility] Stlcotgcld7[address] [place] [address]Dr. Nahed Yañez WBC 0-2 Abnormal NONE SEEN [facility] Comment on above: Performed By: #### Isidoro ALCARAZ UMICRO ####[facility] Tghtovtaro6501 [place] [address]Dr. Nahed Yañez XR CHEST 1 Von 07-30-2022 XR CHEST 1 V Normal [facility] CARDIAC FRANCISCO ADMITon 023 CK [Catalytic activity/Vol] 59 U/L Normal 26-192 [facility] Comment on above: Performed By: #### BLADIMIR SINGH ####[facility] Tmtqlcgaja4850 [place] [address]Dr. Nahed Yañez CK.MB [Mass/Vol] 0.59 ng/mL Normal <=3.[address] [facility] Comment on above: Performed By: #### BLADIMIR SINGH ####[facility] Wmbmvobbkm06[address] [place], [place] [address]Dr. Nahed Yañez HSTROP 40.7 pg/mL Normal 4.0-51.3 [facility] Comment on above: Result Comment: CUT- OFF POINTS HAVE BEEN ESTABLISHED BASED ON THE FOURTH UNIVERSAL DEFINITIONS OF MYOCARDIALINFARCTION. THE UPPER REFERENCE LIMIT (URL) OF TROPONIN, DEFINED THE 99TH PERCENTILE OFcTnI DISTRIBUTION IN A REFERENCE POPULATION, HAS BEEN CONFIRMED THE DECISION THRESHOLDFOR [place] DIAGNOSIS. Performed By: #### C BLADIMIR AGRAWAL ####[facility] Onsqeqgehl[address] [place] [address]Dr. Nahed Yañez ANDRE 89 ng/mL Critically high 9-82 [facility] Comment on above: Performed By: #### C BLADIMIR AGRAWAL ####[facility] Dvjapesdsr7[address] [place] [address]Dr. Nahed Otilio CBC AUTO DIFFon 07-29-2022 BASO # 0.0 103/ul Normal 0.0-0.1 [facility] Comment on above: Performed By: #### C BC ####[facility] Yhaecelybs[address] [place], [place] [address]Dr. Nahed Yañez Basophils/100 WBC (Bld) 0.1 % Critically low 0.2-2.0 [facility] Comment on above: Performed By: #### C BC ####[facility] Tjfbgktxss1964[address] [place], [place] [address]Dr. Nahed Otilio EO # 0.0 103/ul Normal 0.0-0.7 [facility] Comment on above: Performed By: #### C BC ####[facility] Hmxswltjgt[address] [place], [place] [address]Dr. Nahed Yañez Eosinophils/100 WBC (Bld) 0.0 % Critically low 0.9-7.0 [facility] Comment on above: Performed By: #### C BC ####[facility] Erzjrnyjbs11[address] [place], [place] [address]Dr. Nahed Yañez Erythrocyte distribution width (RBC) [Ratio] 14.5 % Normal 11.0-15.0 [facility] Comment on above: Performed By: #### C BC ####[facility] Nbfngnzvtk94[address] [place], [place] [address]Dr. Rosemarieashley Otilio Hematocrit (Bld) [Volume fraction] 42.1 % Normal 36.0-48.0 [facility] Comment on above: Performed By: #### C BC ####[facility] [address] [place] [address]Nk. Nahed Yañez Hemoglobin (Bld) [Mass/Vol] 13.4 g/dL Normal 12.0-16.0 [facility] Comment on above: Performed By: #### C BC ####[facility] Nymbksqibd7[address] [place] [address]Dr. Nahed Yañez IG # 0.07 10e3/ul Critically high 0.00-0.03 The [facility] Comment on above: Performed By: #### C BC ####[facility] Kkfhnddjjh3803 [place] [address]Dr. Nahed Otilio IG % 0.5 % Normal 0.0-0.5 [facility] Comment on above: Performed By: #### C BC ####[facility] Hzurfrajxd6703 [place] [address]Dr. Rosemarieashley Otilio LYMPH # 3.2 103/ul Normal 1.2-3.8 [facility] Comment on above: Performed By: #### C BC ####[facility] Biiuyskqxc668[address] [place], [place] [address]Dr. Nahed Otilio Lymphocytes/100 WBC (Bld) 21.2 % Normal 20.5-60.0 [facility] Comment on above: Performed By: #### C BC ####[facility] Cofdwdecqc6961 [place] [address]Dr. Nahed Otilio MANUAL DIFF REQ NO Normal [facility] Comment on above: Performed By: #### C BC ####[facility] Gbmhmrzmam4474 [place] [address]Dr. Nahed Yañez MCH (RBC) [Entitic mass] 28.1 pg Normal 26.7-34.0 [facility] Comment on above: Performed By: #### C BC ####[facility] Foxzxmfsps74[address] [place], [place] [address]Dr. Nahed Otilio MCHC (RBC) [Mass/Vol] 31.8 g/dL Normal 29.9-35.2 [facility] Comment on above: Performed By: #### C BC ####[facility] Nhxibharwk[address] [place], [place] [address]Dr. Nahed Otilio MCV (RBC) [Entitic vol] 88.3 fL Normal 81.0-99.0 [facility] Comment on above: Performed By: #### C BC ####[facility] Ybvxpmmpiv3848 [place] [address]Dr. Nahed Yañez MONO # 1.0 103/ul Critically high 0.3-0.8 [facility] Comment on above: Performed By: #### C BC ####[facility] Faamvzooty2838 [place] [address]Dr. Nahed Yañez Monocytes/100 WBC (Bld) 6.3 % Normal 1.7-12.0 [facility] Comment on above: Performed By: #### C BC ####[facility] Vkzyxtuonc50[address] [place], [place] [address]Dr. Nahed Otilio NEUT # 11.0 103/ul Critically high 1.4-6.[address] [facility] Comment on above: Performed By: #### C BC ####[facility] Mzreoueymr0[address] [place], [place] [address]Dr. Rosemarieashley Yañez Neutrophils/100 WBC (Bld) 71.9 % Normal 43.0-75.0 [facility] Comment on above: Performed By: #### C BC ####[facility] Ehbtudwvhi2720[address] [place], [place] [address]Dr. Rosemarieashley Yañez Platelet mean volume (Bld) [Entitic vol] 9.9 fL Normal 9.5-13.5 [facility] Comment on above: Performed By: #### C BC ####[facility] Bmiugysmbj6[address] [place], [place] [address]Dr. Rosemarieashley Otilio PLT 385 103/ul Normal 150-450 [facility] Comment on above: Performed By: #### C BC ####[facility] Ssyrqhpjho[address] [place], [place] [address]Dr. Nahed Yañez RBC 4.77 106/ul Normal 4.20-5.40 [facility] Comment on above: Performed By: #### C BC ####[facility] Jgspnazagm1587[address] [place], [place] [address]Dr. Nahed Yañez WBC 15.3 103/ul Critically high 4.0-11.[address] [facility] Comment on above: Performed By: #### C BC ####[facility] Lfszdhqbtd9698 [place] [address]Dr. Nahed Yañez PROF CHEM 8 (BAS METB)on Anion gap [Moles/Vol] 13.4 mmol/L Normal [facility] Comment on above: Performed By: #### C NGHIA, BMP ####[facility] Aztelshogn8323 [place] [address]Dr. Nahed Yañez Calcium [Mass/Vol] 9.5 mg/dL Normal 8.5-10.1 [facility] Comment on above: Performed By: #### C NGHIA, BMP ####[facility] Chplggnynx[address] [place], [place] [address]Dr. Nahed Yañez Chloride [Moles/Vol] 101 mmol/L Normal 98-107 [facility] Comment on above: Performed By: #### Isabell AGRAWAL, BMP ####[facility] Uwmollhqoo26[address] [place], [place] [address]Dr. Nahed Yañez CO2 [Moles/Vol] 27.9 mmol/L Normal 21.0-32.0 [facility] Comment on above: Performed By: #### Isabell AGRAWAL, BMP ####[facility] Kxaienkhbv84[address] [place], [place] [address]Dr. Nahed Yañez Creatinine [Mass/Vol] 0.91 mg/dL Normal 0.55-1.02 [facility] Comment on above: Performed By: #### Isabell AGRAWAL, BMP ####[facility] Dhfpaazftz3228 [place] [address]Dr. Nahed Otilio EGFR-AF MALDIVIAN >60 Normal >=[address] [facility] Comment on above: Performed By: #### C NGHIA, BMP ####[facility] Rithzuigvs8740 [place] [address]Dr. Rosemarieashley Otilio EGFR-NON AF MALDIVIAN >60 Normal >=60 [facility] Comment on above: Performed By: #### Isabell AGRAWAL, BMP ####[facility] Nytbyttrzi2256 [place] [address]Dr. Nahed Yañez Glucose [Mass/Vol] 100 mg/dL Normal 74-106 [facility] Comment on above: Performed By: #### C NGHIA, BMP ####[facility] Uiepdesodg13[address] [place], [place] [address]Dr. Nahed Yañez Potassium [Moles/Vol] 4.3 mmol/L Normal 3.5-5.1 [facility] Comment on above: Result Comment: samp le slightly hemolized Performed By: #### C NGHIA, BMP ####[facility] Hwzkdmqvmk24[address] [place], [place] [address]Dr. Nahed Yañez Sodium [Moles/Vol] 138 mmol/L Normal 136-145 [facility] Comment on above: Performed By: #### C NGHIA, BMP ####[facility] Bfkbrbpdtr3724[address] [place], [place] [address]Dr. Nahed Yañez Urea nitrogen [Mass/Vol] 34.0 mg/dL Critically high 7.0-18.0 [facility] Comment on above: Performed By: #### C NGHIA, BMP ####[facility] Vtfwomtrhg8618[address] [place], [place] [address]Dr. Nahed Yañez Urea nitrogen/Creatinine [Mass ratio] 37.4 mg/mg Normal [facility] Comment on above: Performed By: #### C NGHIA, BMP ####[facility] Nrkepjpukg6634[address] [place], [place] [address]Dr. Nahed Yañez BNPon 07-28-2022 Natriuretic peptide B (Bld) [Mass/Vol] 249.0 pg/mL Normal <=900.0 [facility] Comment on above: Performed By: #### B JEWEL BEARING DRILLER ####[facility] Ztpqwosqsy754[address] [place], [place] [address]Dr. Nahed Yañez CBC AUTO DIFFon 07-28-2022 BASO # 0.0 103/ul Normal 0.0-0.1 [facility] Comment on above: Performed By: #### C BC ####[facility] Ueatnbynsz217[address] [place], [place] [address]Dr. Nahed Yañez Basophils/100 WBC (Bld) 0.1 % Critically low 0.2-2.0 [facility] Comment on above: Performed By: #### C BC ####[facility] Ccunivccfz5763 [place] [address]Dr. Nahed aYñez EO # 0.0 103/ul Normal 0.0-0.7 [facility] Comment on above: Performed By: #### C BC ####[facility] Psjqsmmvru2939[address] [place], [place] [address]Dr. Nahed Yañez Eosinophils/100 WBC (Bld) 0.0 % Critically low 0.9-7.0 [facility] Comment on above: Performed By: #### C BC ####[facility] Qcvpessyuq1988[address] [place], [place] [address]Dr. Nahed Yañez Erythrocyte distribution width (RBC) [Ratio] 14.3 % Normal 11.0-15.0 [facility] Comment on above: Performed By: #### C BC ####[facility] Pkmepbafwp773[address] [place], [place] [address]Dr. Nahed Yañez Hematocrit (Bld) [Volume fraction] 38.7 % Normal 36.0-48.0 [facility] Comment on above: Performed By: #### C BC ####[facility] Fffgmuzjqt9[address] [place], [place] [address]Dr. Nahed Yañez Hemoglobin (Bld) [Mass/Vol] 12.2 g/dL Normal 12.0-16.0 [facility] Comment on above: Performed By: #### C BC ####[facility] Ssfqotorfi[address] [place], [place] [address]Dr. Nahed Yañez IG # 0.06 10e3/ul Critically high 0.00-0.03 [facility] Comment on above: Performed By: #### C BC ####[facility] Cevyxblfwq5157[address] [place], [place] [address]Dr. Nahed Yañez IG % 0.5 % Normal 0.0-0.5 [facility] Comment on above: Performed By: #### C BC ####[facility] Wtwwrjvyxi[address] [place], [place] [address]Dr. Rosemarieashley Yañez LYMPH # 0.7 103/ul Critically low 1.2-3.8 The [facility] Comment on above: Performed By: #### C BC ####[facility] Rzgfzcqgzv7476 [place] [address]Dr. Nahed Otilio Lymphocytes/100 WBC (Bld) 5.7 % Critically low 20.5-60.0 [facility] Comment on above: Performed By: #### C BC ####[facility] Xxjcpxgcvg6479 [place] [address]Dr. Rosemarieashley Yañez MANUAL DIFF REQ NO Normal [facility] Comment on above: Performed By: #### C BC ####[facility] Mbgvhuhybj9779 [place] [address]Dr. Nahed Otilio MCH (RBC) [Entitic mass] 28.2 pg Normal 26.7-34.0 [facility] Comment on above: Performed By: #### C BC ####[facility] Qpaaecnzoz1813[address] [place], [place] [address]Dr. Nahed Otilio MCHC (RBC) [Mass/Vol] 31.5 g/dL Normal 29.9-35.2 [facility] Comment on above: Performed By: #### C BC ####[facility] Nqajzejuoc3179 [place] [address]Dr. Nahed Yañez MCV (RBC) [Entitic vol] 89.6 fL Normal 81.0-99.0 [facility] Comment on above: Performed By: #### C BC ####[facility] Ngcmujztfd6716[address] [place], [place] [address]Dr. Nahed Yañez MONO # 0.3 103/ul Normal 0.3-0.8 [facility] Comment on above: Performed By: #### C BC ####[facility] Finzqewmeq34[address] [place], [place] [address]Dr. Nahed Yañez Monocytes/100 WBC (Bld) 2.2 % Normal 1.7-12.0 [facility] Comment on above: Performed By: #### C BC ####[facility] Afsxvhxtto4[address] [place], [place] [address]Dr. Nahed Yañez NEUT # 11.1 103/ul Critically high 1.4-6.[address] [facility] Comment on above: Performed By: #### C BC ####[facility] Hgtarihwkm5448 [place] [address]Dr. Nahed Yañez Neutrophils/100 WBC (Bld) 91.5 % Critically high 43.0-75.0 [facility] Comment on above: Performed By: #### C BC ####[facility] Xvybqjuwqs4985 [place] [address]Dr. Nahed Yañez Platelet mean volume (Bld) [Entitic vol] 10.1 fL Normal 9.5-13.5 [facility] Comment on above: Performed By: #### C BC ####[facility] Pqgvmnhlpx8269 [place] [address]Dr. Nahed Yañez PLT 323 103/ul Normal 150-450 [facility] Comment on above: Performed By: #### C BC ####[facility] Kpeusyisly1902 [place] [address]Dr. Nahed Yañez RBC 4.32 106/ul Normal 4.20-5.40 [facility] Comment on above: Performed By: #### C BC ####[facility] Nzecgtfyok5848 [place] [address]Dr. Nahed Yañez WBC 12.1 103/ul Critically high 4.0-11.[address] [facility] Comment on above: Performed By: #### C BC ####[facility] Vnlzvsqjvx4775 [place] [address]Dr. Nahed Yañez POINT OF CARE GLUCOSEon 03- Glucose [Mass/Vol] 308 mg/dL Critically high 74-106 [facility] Comment on above: Performed By: #### P OCGLUC ####[facility] Addgekxgmg255[address] [place], [place] [address]Dr. Nahed Yañez Glucose [Mass/Vol] 341 mg/dL Critically high 74-106 [facility] Comment on above: Performed By: #### P OCGLUC ####[facility] Tgzblpmbhg[address] [place], [place] [address]Dr. Nahed Yañez Glucose [Mass/Vol] 320 mg/dL Critically high 74-106 [facility] Comment on above: Performed By: #### P OCGLUC ####[facility] Hdvkfciuqw6009 [place] [address]Dr. Nahed Yañez PROF 14(COMP METB)on 023 Albumin [Mass/Vol] 3.0 g/dL Critically low 3.4-5.0 [facility] Comment on above: Performed By: #### C MP ####[facility] Fswpxfarpg9585 [place] [address]Dr. Nahed Yañez Albumin/Globulin [Mass ratio] 0.7 {ratio} Normal [facility] Comment on above: Performed By: #### C MP ####[facility] Ygyaifkkcj5259[address] [place], [place] [address]Dr. Nahed Yañez ALP [Catalytic activity/Vol] 93 U/L Normal 46-116 [facility] Comment on above: Performed By: #### C MP ####[facility] Llltfnpeos547[address] [place], [place] [address]Dr. Nahed Otilio ALT [Catalytic activity/Vol] 15 U/L Normal 14-59 [facility] Comment on above: Performed By: #### C MP ####[facility] Cpkcuveehr2634[address] [place], [place] [address]Dr. Nahed Otilio Anion gap [Moles/Vol] 13.0 mmol/L Normal [facility] Comment on above: Performed By: #### C MP ####[facility] Toskcmrlxc5607[address] [place], [place] [address]Dr. Nahed Otilio AST [Catalytic activity/Vol] 11 U/L Critically low 15-37 [facility] Comment on above: Performed By: #### C MP ####[facility] Dxbvfdxpfe1826[address] [place], [place] [address]Dr. Nahed Yañez Bilirubin [Mass/Vol] 0.2 mg/dL Normal 0.2-1.0 [facility] Comment on above: Performed By: #### C MP ####[facility] Gbjkjlfolr8759 [place] [address]Dr. Nahed Yañez Calcium [Mass/Vol] 9.6 mg/dL Normal 8.5-10.1 [facility] Comment on above: Performed By: #### C MP ####[facility] Irtzrtzxxv2306 [place] [address]Dr. Nahed Yañez Chloride [Moles/Vol] 100 mmol/L Normal 98-107 [facility] Comment on above: Performed By: #### C MP ####[facility] Ghdxwgolpy7991 [place] [address]Dr. Nahed Yañez CO2 [Moles/Vol] 27.3 mmol/L Normal 21.0-32.0 [facility] Comment on above: Performed By: #### C MP ####[facility] Idvbilltgp929[address] [place], [place] [address]Dr. Nahed Yañez Creatinine [Mass/Vol] 1.19 mg/dL Critically high 0.55-1.02 [facility] Comment on above: Performed By: #### C MP ####[facility] Bdhjmluste713[address] [place], [place] [address]Dr. Nahed Yañez EGFR-AF MALDIVIAN 56 mL/min/1.73m2 Critically low >=60 [facility] Comment on above: Performed By: #### C MP ####[facility] Pcoveqlpjn0110[address] [place], [place] [address]Dr. Nahed Yañez EGFR-NON AF MALDIVIAN 46 mL/min/1.73m2 Critically low >=60 [facility] Comment on above: Performed By: #### C MP ####[facility] Jvibezttut120[address] [place], [place] [address]Dr. Nahed Otilio Globulin (S) [Mass/Vol] 4.1 g/dL Normal [facility] Comment on above: Performed By: #### C MP ####[facility] Jingnfhzfs0200[address] [place], [place] [address]Dr. Nahed Otilio Glucose [Mass/Vol] 244 mg/dL Critically high 74-106 T [facility] Comment on above: Performed By: #### C MP ####[facility] Mlfgbrbrsq[address] [place], [place] [address]Dr. Nahed Yañez Potassium [Moles/Vol] 4.3 mmol/L Normal 3.5-5.1 [facility] Comment on above: Performed By: #### C MP ####[facility] Zvutnzzpml44[address] [place], [place] [address]Dr. Nahed Yañez Protein [Mass/Vol] 7.1 g/dL Normal 6.4-8.2 [facility] Comment on above: Performed By: #### C MP ####[facility] Zkxwnqgcmf37[address] [place], [place] [address]Dr. Nahed Otilio Sodium [Moles/Vol] 136 mmol/L Normal 136-145 [facility] Comment on above: Performed By: #### C MP ####[facility] Bltlyzrllh258[address] [place], [place] [address]Dr. Nahed Yañez Urea nitrogen [Mass/Vol] 19.0 mg/dL Critically high 7.0-18.0 [facility] Comment on above: Performed By: #### C MP ####[facility] Xajzpnwxti29[address] [place], [place] [address]Dr. Nahed Yañez Urea nitrogen/Creatinine [Mass ratio] 16.0 mg/mg Normal [facility] Comment on above: Performed By: #### C MP ####[facility] Jurdkyioay8[address] [place], [place] [address]Dr. Nahed Otilio BNPon 07-27-2022 Natriuretic peptide B (Bld) [Mass/Vol] 1093.0 pg/mL Critically high <=900.0 [facility] Comment on above: Performed By: #### B JEWEL BEARING DRILLER ####[facility] Pbdymcjmwz058[address] [place], [place] [address]Dr. Rosemarieashley Otilio CBC AUTO DIFFon 07-27-2022 BASO # 0.1 103/ul Normal 0.0-0.1 [facility] Comment on above: Performed By: #### C BC ####[facility] Nixxquxbzo[address] [place], [place] [address]Dr. Nahed Yañez Basophils/100 WBC (Bld) 0.3 % Normal 0.2-2.0 [facility] Comment on above: Performed By: #### C BC ####[facility] Mxbbnzbqma5997 [place] [address]Dr. Nahed Yañez EO # 0.2 103/ul Normal 0.0-0.7 [facility] Comment on above: Performed By: #### C BC ####[facility] Lpsuitqnng5180 [place] [address]Dr. Nahed Yañez Eosinophils/100 WBC (Bld) 1.2 % Normal 0.9-7.0 [facility] Comment on above: Performed By: #### C BC ####[facility] Chkbpfkkhm723[address] [place], [place] [address]Dr. Nahed Yañez Erythrocyte distribution width (RBC) [Ratio] 14.1 % Normal 11.0-15.0 [facility] Comment on above: Performed By: #### C BC ####[facility] Adrthbpwet268[address] [place], [place] [address]Dr. Nahed Yañez Hematocrit (Bld) [Volume fraction] 42.2 % Normal 36.0-48.0 [facility] Comment on above: Performed By: #### C BC ####[facility] Koodxnarsj445[address] [place], [place] [address]Dr. Nahed Yañez Hemoglobin (Bld) [Mass/Vol] 13.6 g/dL Normal 12.0-16.0 [facility] Comment on above: Performed By: #### C BC ####[facility] Dptfnrajtw[address] [place], [place] [address]Dr. Nahed Yañez IG # 0.09 10e3/ul Critically high 0.00-0.03 [facility] Comment on above: Performed By: #### C BC ####[facility] Hgjidobuhb[address] [place], [place] [address]Dr. Nahed Yañez IG % 0.5 % Normal 0.0-0.5 [facility] Comment on above: Performed By: #### C BC ####[facility] Vtynbhtxht[address] [place], [place] [address]Dr. Rosemarieashley Yañez LYMPH # 1.8 103/ul Normal 1.2-3.8 [facility] Comment on above: Performed By: #### C BC ####[facility] Nhqejyujgl3996 [place] [phone]. Nahed Otilio Lymphocytes/100 WBC (Bld) 10.2 % Critically low 20.5-60.0 [facility] Comment on above: Performed By: #### C BC ####[facility] Pghfufmphk5[address] [place] [phone]. Nahed Yañez MANUAL DIFF REQ NO Normal [facility] Comment on above: Performed By: #### C BC ####[facility] Lfaffmvnpd5176 [place] [phone]. Nahed Yañez MCH (RBC) [Entitic mass] 28.3 pg Normal 26.7-34.0 [facility] Comment on above: Performed By: #### C BC ####[facility] Rluideufbx0843 [place] [address]Dr. Nahed Yañez MCHC (RBC) [Mass/Vol] 32.2 g/dL Normal 29.9-35.2 [facility] Comment on above: Performed By: #### C BC ####[facility] Eokzmyrtzj2405 [place] [phone]. Nahed Yañez MCV (RBC) [Entitic vol] 87.9 fL Normal 81.0-99.0 [facility] Comment on above: Performed By: #### C BC ####[facility] Ekevsidacq8036 [place] [phone]. Nahed Yañez MONO # 0.9 103/ul Critically high 0.3-0.8 [facility] Comment on above: Performed By: #### C BC ####[facility] Cnmuwbwdsg0839 [place] [phone]. Nahed Yañez Monocytes/100 WBC (Bld) 5.2 % Normal 1.7-12.0 [facility] Comment on above: Performed By: #### C BC ####[facility] Lwzrbwarse1562 [place] [phone]. Nahed Yañez NEUT # 14.4 103/ul Critically high 1.4-6.[address] [facility] Comment on above: Performed By: #### C BC ####[facility] Klgkvxuojc3629 [place], [place] [address]Li. Nahed Yañez Neutrophils/100 WBC (Bld) 82.6 % Critically high 43.0-75.0 [facility] Comment on above: Performed By: #### C BC ####[facility] Vssfmtqlds5912 [place], [place] [address]Ss. Nahed Yañez Platelet mean volume (Bld) [Entitic vol] 10.1 fL Normal 9.5-13.5 [facility] Comment on above: Performed By: #### C BC ####[facility] Bzeshoczcc1759 [place] [phone]. Nahed Yañez PLT 336 103/ul Normal 150-450 [facility] Comment on above: Performed By: #### C BC ####[facility] Scvkkvoltb9144 [place] [phone]. Nahed Yañez RBC 4.80 106/ul Normal 4.20-5.40 [facility] Comment on above: Performed By: #### C BC ####[facility] Beafuhhdxz6989 [place], [place] [address]Ys. Nahed Yañez WBC 17.4 103/ul Critically high 4.0-11.[address] [facility] Comment on above: Performed By: #### C BC ####[facility] Nydarswowr8988 [place] [phone]. Nahed Yañez CTA CHEST WO W CONon 023 CTA CHEST WO W CON Normal [facility]on [facility]12 SARS-CoV-2 (COVID-19) RNA MIRNA+probe Ql (Unsp spec) Not detected Normal NOT DETECTED [facility] Comment on above: Result Comment: [...] for this test is supported by the [place] of [employer] and Human Service's declaration that [...] be used). Performed By: #### C VDTB ####[facility] Wkpzidxtdp[address] [place], [place] [address]Dr. Nahed Yañez ECHOCARDIO M/2D COMPLETEon 0 07-27-2022 ECHOCARDIO M/2D COMPLETE Normal [facility] ER URINE PROFILEon 3 Bilirubin Ql (U) Negative Normal NEGATIVE The [facility] Comment on above: Performed By: #### U MICRO, ERUR ####[facility] Vtypktfpqz[address] [place], [place] [address]Dr. Nahed Yañez Clarity (U) CLEAR Normal CLEAR [facility] Comment on above: Performed By: #### U MICRO, ERUR ####[facility] Ckyhkpdwpk9[address] [place], [place] [address]Dr. Nahed Yañez Color (U) LT. YELLOW Normal YELLOW [facility] Comment on above: Performed By: #### U MICRO, ERUR ####[facility] Qhynfirhjx8[address] [place], [place] [address]Dr. Nahed AGEED A micrscopic examination will be performed if indicated. Normal [facility] Comment on above: Performed By: #### U MICRO, ERUR ####[facility] Vgezgtpmvc8[address] [place], [place] [address]Dr. Nahed Yañez Glucose Ql (U) >1000 Abnormal NEGATIVE The [facility] Comment on above: Performed By: #### U MICRO, ERUR ####[facility] Tjimbmtubr[address] [place], [place] [address]Dr. Nahed Yañez Hemoglobin Ql (U) TRACE-LYSED Abnormal NEGATIVE [facility] Comment on above: Performed By: #### U MICRO, ERUR ####[facility] Gyiepkypyh[address] [place] [address]Dr. Nahed Yañez Ketones Ql (U) TRACE Abnormal NEGATIVE The [facility] Comment on above: Performed By: #### U MICRO, ERUR ####[facility] Kwyfcbiuda1443 [place] [address]Dr. Nahed Yañez LEUKOCYTES Negative Normal NEGATIVE [facility] Comment on above: Performed By: #### U MICRO, ERUR ####[facility] Knwwnvwcgc6362 [place] [address]Dr. Nahed Yañez Nitrite Ql (U) Negative Normal NEGATIVE The [facility] Comment on above: Performed By: #### U MICRO, ERUR ####[facility] Cbrkhuvhte17[address] [place], [place] [address]Dr. Nahed Yañez pH (U) 7.0 [pH] Normal 5-9 [facility] Comment on above: Performed By: #### U MICRO, ERUR ####[facility] Wgwbhfuzrh4[address] [place], [place] [address]Dr. Nahed Yañez SPEC GRAVITY 1.020 Normal 1.005-<=1.02 5 [facility] Comment on above: Performed By: #### U MICRO, ERUR ####[facility] Icmpxbocgy68[address] [place], [place] [address]Dr. Nahed Yañez UA PROTEIN Negative Normal NEGATIVE/ TRACE [facility] Comment on above: Performed By: #### U MICRO, ERUR ####[facility] Nxwywx[address] [place], [place] [address]Dr. Nahed Yañez UR MICRO IND INDICATED Normal [facility] Comment on above: Performed By: #### U MICRO, ERUR ####[facility] Nvfdvxifix54[address] [place], [place] [address]Dr. Nahed Yañez Urobilinogen Qn (U) 0.2 {Alem'U}/dL Normal 0.2 - 1. 0 [facility] Comment on above: Performed By: #### U MICRO, ERUR ####[facility] Wwhchnqikt[address] [place], [place] [address]Dr. Nahed Yañez LIPID PROFILEon 07-27-2022 CHOL-HDL RATIO NORM SEE BELOW Normal [facility] Comment on above: Result Comment: 3.3 - 4.4 LOW RISK 4.4 - 7.1 AVERAGE RISK 7.1 - 11.0 MODERATE RISK >11.0 HIGH RISK Performed By: #### M G, LIPID ####[facility] Ssgejjlmek6007 [place], [place] [address]Xn. Nahed Yañez Cholesterol [Mass/Vol] 181 mg/dL Normal <=200 Th [facility] Comment on above: Performed By: #### M G, LIPID ####[facility] Csfaczejeq3768 [place], [place] [address]Fv. Nahed Otilio Cholesterol in HDL [Mass/Vol] 87 mg/dL Critically high 40-60 [facility] Comment on above: Performed By: #### Pablo Moore, LIPID ####[facility] Nhdtyuzfzi3040 [place] [phone]. Rosemarieashley Otilio Cholesterol in LDL [Mass/Vol] 78.6 mg/dL Normal [facility] Comment on above: Performed By: #### M Teresa, LIPID ####[facility] Ntpewuqvda7716 [place], [place] [address]Ku. Nahed Otilio Cholesterol.total/Chol esterol in HDL [Mass ratio] 2.1 {ratio} Normal [facility] Comment on above: Performed By: #### Pablo Moore, LIPID ####[facility] Cjgsyzqboh9192 [place] [phone]. Rosemarieashley Otilio HDL NORMAL > or = 60 mg/dl - LO W CARDIOVASCULAR RISK <40 mg/dl - HIGH CARDIOVASCULAR RISK Normal [facility] Comment on above: Performed By: #### M G, LIPID ####[facility] Bjhkogklcw8635 [place] [phone]. Nahed Otilio LDL CALC NORMAL SEE BELOW Normal [facility] Comment on above: Result Comment: <100 mg/dl OPTIMAL 100 - 129 mg/dl NEAR OR ABOVE OPTIMAL 130 - 159 mg/dl BORDERLINE HIGH 160 - 189 mg/dl HIGH >190 mg/dl VERY HIGH Performed By: #### M G, LIPID ####[facility] Fwmimjdfks2608 [place] [phone]. Nahed Yañez Triglyceride [Mass/Vol] 77 mg/dL Normal <=150 [facility] Comment on above: Performed By: #### M G, LIPID ####[facility] Wqhgpelxzn5373 [place] [phone]. Nahed Yañez VLDL CALC 15.4 mg/dL Normal [facility] Comment on above: Performed By: #### M G, LIPID ####[facility] Boigjrivlm7996 [place] [phone]. Nahed Yañez MAGNESIUMon 07-27-2022 Magnesium [Mass/Vol] 1.7 mg/dL Critically low 1.8-2.4 [facility] Comment on above: Performed By: #### M Teresa, LIPID ####[facility] Ruvlyzuasc9777 [place] [address]Dr. Nahed Yañez POINT OF CARE GLUCOSEon 07-12 Glucose [Mass/Vol] 276 mg/dL Critically high -106 [facility] Comment on above: Performed By: #### P OCGLUC ####[facility] O[address]yqb[address] [place] [address]Dr. Nahed Yañez Glucose [Mass/Vol] 143 mg/dL Critically high -106 [facility] Comment on above: Performed By: #### P OCGLUC ####[facility] Jznyoesxxj7814 [place] [address]Dr. Nahed Yañez Glucose [Mass/Vol] 117 mg/dL Critically high -106 [facility] Comment on above: Performed By: #### P OCGLUC ####[facility] Pxlregfhpw4561 [place] [address]Dr. Rosemarieashley Yañez PROF CHEM 8 (BAS METB)on Anion gap [Moles/Vol] 11.1 mmol/L Normal [facility] Comment on above: Performed By: #### B MP, HSTROPN ####[facility] Mezclipysh3098 [place] [address]Dr. Nahed Yañez Calcium [Mass/Vol] 9.6 mg/dL Normal 8.5-10.1 [facility] Comment on above: Performed By: #### B RENZO, HSTROPN ####[facility] Crbxwtgaxa4028 [place] [address]Dr. Nahed Yañez Chloride [Moles/Vol] 99 mmol/L Normal 98-107 [facility] Comment on above: Performed By: #### B RENZO, HSTROPN ####[facility] Gbxgvdgmos0916 [place] [address]Dr. Nahed Yañez CO2 [Moles/Vol] 27.8 mmol/L Normal 21.0-32.[address] [facility] Comment on above: Performed By: #### B RENZO, HSTROPN ####[facility] Ntvmxdjvpa[address] [place], [place] [address]Dr. Nahed Yañez Creatinine [Mass/Vol] 0.90 mg/dL Normal 0.55-1.02 [facility] Comment on above: Performed By: #### Mery MULLER, HSTROPN ####[facility] Rmlqvuxgfh[address] [place], [place] [address]Dr. Nahed Yañez EGFR-AF MALDIVIAN >60 Normal >=[address] [facility] Comment on above: Performed By: #### Mery UMLLER, HSTROPN ####[facility] Apxtsgohni[address] [place], [place] [address]Dr. Nahed Yañez EGFR-NON AF MALDIVIAN >60 Normal >=60 [facility] Comment on above: Performed By: #### Mery MULLER, HSTROPN ####[facility] Yugwoafdqo8150 [place] [address]Dr. Nahed Yañez Glucose [Mass/Vol] 133 mg/dL Critically high 74-106 [facility] Comment on above: Performed By: #### B RENZO, HSTROPN ####[facility] Hpabutkngl[address] [place], [place] [address]Dr. Nahed Yañez Potassium [Moles/Vol] 3.9 mmol/L Normal 3.5-5.1 [facility] Comment on above: Performed By: #### Mery MULLER, HSTROPN ####[facility] Ojolwawiph[address] [place], [place] [address]Dr. Nahed Yañez Sodium [Moles/Vol] 134 mmol/L Critically low 136-145 Th e [facility] Comment on above: Performed By: #### B MP, HSTROPN ####[facility] Cdyftogosr6698 [place] [address]Dr. Nahed Yañez Urea nitrogen [Mass/Vol] 9.0 mg/dL Normal 7.0-18.0 [facility] Comment on above: Performed By: #### B MP, HSTROPN ####[facility] Yhnhzapcbx6098 [place] [address]Dr. Rosemarieashley Yañez Urea nitrogen/Creatinine [Mass ratio] 10.0 mg/mg Normal [facility] Comment on above: Performed By: #### B MP, HSTROPN ####[facility] Xwipqefjkt8978 [place] [address]Dr. Nahed Otilio TROPONIN, HIGH SENSITIVITYon 07-27-2022 HSTROP 40.7 pg/mL Normal 4.0-51.3 [facility] Comment on above: Result Comment: CUT- OFF POINTS HAVE BEEN ESTABLISHED BASED ON THE FOURTH UNIVERSAL DEFINITIONS OF MYOCARDIALINFARCTION. THE UPPER REFERENCE LIMIT (URL) OF TROPONIN, DEFINED THE 99TH PERCENTILE OFcTnI DISTRIBUTION IN A REFERENCE POPULATION, HAS BEEN CONFIRMED THE DECISION THRESHOLDFOR [place] DIAGNOSIS. Performed By: #### H STROPN ####[facility] Ojqvnyawuk39[address] [place] [address]Dr. Nahed Yañez HSTROP 42.5 pg/mL Normal 4.0-51.3 [facility] Comment on above: Result Comment: CUT- OFF POINTS HAVE BEEN ESTABLISHED BASED ON THE FOURTH UNIVERSAL DEFINITIONS OF MYOCARDIALINFARCTION. THE UPPER REFERENCE LIMIT (URL) OF TROPONIN, DEFINED THE 99TH PERCENTILE OFcTnI DISTRIBUTION IN A REFERENCE POPULATION, HAS BEEN CONFIRMED THE DECISION THRESHOLDFOR [place] DIAGNOSIS. Performed By: #### H STROPN ####[facility] Kawhrdsmlz5389 [place] [address]Dr. Nahed Yañez HSTROP 50.8 pg/mL Normal 4.0-51.3 [facility] Comment on above: Result Comment: CUT- OFF POINTS HAVE BEEN ESTABLISHED BASED ON THE FOURTH UNIVERSAL DEFINITIONS OF MYOCARDIALINFARCTION. THE UPPER REFERENCE LIMIT (URL) OF TROPONIN, DEFINED THE 99TH PERCENTILE OFcTnI DISTRIBUTION IN A REFERENCE POPULATION, HAS BEEN CONFIRMED THE DECISION THRESHOLDFOR [place] DIAGNOSIS. Performed By: #### H STROPN ####[facility] Ybsjkthxks9780 [place] [phone]. Nahed Yañez HSTROP 46.3 pg/mL Normal 4.0-51.3 [facility] Comment on above: Result Comment: CUT- OFF POINTS HAVE BEEN ESTABLISHED BASED ON THE FOURTH UNIVERSAL DEFINITIONS OF MYOCARDIALINFARCTION. THE UPPER REFERENCE LIMIT (URL) OF TROPONIN, DEFINED THE 99TH PERCENTILE OFcTnI DISTRIBUTION IN A REFERENCE POPULATION, HAS BEEN CONFIRMED THE DECISION THRESHOLDFOR [place] DIAGNOSIS. Performed By: #### H STROBINH, TSH ####[facility] Sshtunsmeb1687 [place] [address]Dr. Nahed Yañez HSTROP 54.2 pg/mL Critically high 4.0-51.3 [facility] Comment on above: Result Comment: CUT- OFF POINTS HAVE BEEN ESTABLISHED BASED ON THE [facility] UNIVERSAL DEFINITIONS OF MYOCARDIALINFARCTION. THE UPPER REFERENCE LIMIT (URL) OF TROPONIN, DEFINED THE 99TH PERCENTILE OFcTnI DISTRIBUTION IN A REFERENCE POPULATION, HAS BEEN CONFIRMED THE DECISION THRESHOLDFOR [place] DIAGNOSIS. Performed By: #### B MP, HSTROPN ####[facility] Qpjwhgkryz0852 [place] [phone]. Nahed Yañez TSHon 07-27-2022 TSH 1.566 uIU/mL Normal 0.358-3.[address] [facility] Comment on above: Performed By: #### H STROPN, TSH ####[facility] Tzkslingtd04[address] [place] [phone]. Nahed Yañez URINE MICROSCOPIC ONLYon BACTERIA NONE SEEN Normal NONE SEEN [facility] Comment on above: Performed By: #### U MICRO, ERUR ####[facility] Aphgfsyxvw7474 [place] [phone]. Nahed Yañez Bacteria identified Cx Nom (U) NOT INDICATED Normal [facility] Comment on above: Performed By: #### U MICRO, ERUR ####[facility] Uyzzmmvtev8488 [place] [address]Dr. Nahed Yañez CAST NONE SEEN Normal NONE SEEN [facility] Comment on above: Performed By: #### U MICRO, ERUR ####[facility] Rbzgakcepg7711 [place] [address]Dr. Nahed Yañez Crystals LM Nom (Urine sed) NONE SEEN Normal NONE SEEN [facility] Comment on above: Performed By: #### U MICRO, ERUR ####[facility] Vwqrwdlzzq6116 [place] [address]Dr. Nahed Yañez Epithelial cells LM Ql (Urine sed) FEW Abnormal NONE SEEN /RARE [facility] Comment on above: Performed By: #### U MICRO, ERUR ####[facility] Fjmssmzlvk6193 [place] [address]Dr. Nahed Yañez MUCOUS NONE SEEN Normal NONE SEEN [facility] Comment on above: Performed By: #### U MICRO, ERUR ####[facility] Kkbflnnuaf[address] [place], [place] [address]Dr. Nahed Yañez RBC 0-2 Normal 0-2 [facility] Comment on above: Performed By: #### U MICRO, ERUR ####[facility] Nnlhfuqjrg[address] [place], [place] [address]Dr. Nahed Yañez WBC NONE SEEN Normal NONE SEEN [facility] Comment on above: Performed By: #### U MICRO, ERUR ####[facility] Njlrtxwhrj[address] [place], [place] [address]Dr. Nahed Yañez XR CHEST 1 Von 07-27-2022 XR CHEST 1 V Normal [facility] INSULINon 05-09-2022 Insulin 21.1 uIU/mL Normal 2.6-24.9 [facility] Comment on above: Performed By: #### I NSULIN ####[facility] Fpkiyajvaf[address] [place], [place] [address]Dr. Nahed Yañez BNPon 05-08-2022 Natriuretic peptide B (Bld) [Mass/Vol] 58.0 pg/mL Normal <=900.0 [facility] Comment on above: Performed By: #### B JEWEL BEARING DRILLER, LIPID, T7, TSH, CMP ####[facility] Uifuhlavkf6170 [place] [phone]. Nahed Yañez CBC AUTO DIFFon 05-08-2022 BASO # 0.0 103/ul Normal 0.0-0.1 [facility] Comment on above: Performed By: #### C BC ####[facility] Qiaqclyqmj7486 [place] [phone]. Nahed Yañez Basophils/100 WBC (Bld) 0.4 % Normal 0.2-2.0 [facility] Comment on above: Performed By: #### C BC ####[facility] Mbhlnsygev[address] [place], [place] [address]Dr. Nahed Yañez EO # 0.3 103/ul Normal 0.0-0.7 [facility] Comment on above: Performed By: #### C BC ####[facility] Tbljlsdunm6[address] [place], [place] [address]Dr. Nahed Yañez Eosinophils/100 WBC (Bld) 4.2 % Normal 0.9-7.0 [facility] Comment on above: Performed By: #### C BC ####[facility] Ghaafdwelm25[address] [place], [place] [address]Dr. Nahed Yañez Erythrocyte distribution width (RBC) [Ratio] 14.0 % Normal 11.0-15.0 [facility] Comment on above: Performed By: #### C BC ####[facility] W[address]bmvkslae[address] [place], [place] [address]Dr. Nahed Yañze Hematocrit (Bld) [Volume fraction] 43.8 % Normal 36.0-48.0 [facility] Comment on above: Performed By: #### C BC ####[facility] Kqlgcuxdfg94[address] [place], [place] [address]Dr. Nahed Yañez Hemoglobin (Bld) [Mass/Vol] 13.9 g/dL Normal 12.0-16.0 [facility] Comment on above: Performed By: #### C BC ####[facility] Fpxhwbbqdf19[address] [place], [place] [address]Dr. Nahed Yañez IG # 0.01 10e3/ul Normal 0.00-0.03 [facility] Comment on above: Performed By: #### C BC ####[facility] Mirzozlrev9062 [place] [address]DrShaun Rosemarieashley Yañez IG % 0.1 % Normal 0.0-0.5 [facility] Comment on above: Performed By: #### C BC ####[facility] Wpqgmplnvg2031 [place] [phone] Rosemarieashley Yañez LYMPH # 2.8 103/ul Normal 1.2-3.8 [facility] Comment on above: Performed By: #### C BC ####[facility] Wqhctpgryt0500 [place] [address]DrShaun Rosemarieashley Yañez Lymphocytes/100 WBC (Bld) 37.6 % Normal 20.5-60.0 [facility] Comment on above: Performed By: #### C BC ####[facility] Mnioqougxq9[address] [place], [place] [address]DrShaun Yañez MANUAL DIFF REQ NO Normal [facility] Comment on above: Performed By: #### C BC ####[facility] Idhlfkpbkb8068 [place] [phone]. Nahed Otilio MCH (RBC) [Entitic mass] 28.4 pg Normal 26.7-34.0 [facility] Comment on above: Performed By: #### C BC ####[facility] [address]vmq[address] [place], [place] [address]DrShaun Nahed Otilio MCHC (RBC) [Mass/Vol] 31.7 g/dL Normal 29.9-35.2 [facility] Comment on above: Performed By: #### C BC ####[facility] Uqqpotfvgx[address] [place], [place] [address]DrShaun Rosemarieashley Yañez MCV (RBC) [Entitic vol] 89.6 fL Normal 81.0-99.0 [facility] Comment on above: Performed By: #### C BC ####[facility] Onskftpfkj4396 [place] [phone] Yañez MONO # 0.5 103/ul Normal 0.3-0.8 [facility] Comment on above: Performed By: #### C BC ####[facility] Cshyrsohpq6265 [place] [phone]. Nahed Yañez Monocytes/100 WBC (Bld) 6.8 % Normal 1.7-12.0 [facility] Comment on above: Performed By: #### C BC ####[facility] Ntnpgbakiz0202 [place] [phone]. Nahed Yañez NEUT # 3.7 103/ul Normal 1.4-6.5 [facility] Comment on above: Performed By: #### C BC ####[facility] Xoifbwkali8731 [place] [phone]. Nahed Yañez Neutrophils/100 WBC (Bld) 50.9 % Normal 43.0-75.0 [facility] Comment on above: Performed By: #### C BC ####[facility] Tdxczbtrec3793 [place] [address]Dr. Nahed Yañez Platelet mean volume (Bld) [Entitic vol] 9.8 fL Normal 9.5-13.5 [facility] Comment on above: Performed By: #### C BC ####[facility] Ymxcgsihfy1567 [place] [phone]. Nahed Yañez PLT 306 103/ul Normal 150-450 [facility] Comment on above: Performed By: #### C BC ####[facility] Mqjevzozhn0805 [place] [phone]. Nahed Yañez RBC 4.89 106/ul Normal 4.20-5.40 [facility] Comment on above: Performed By: #### C BC ####[facility] Kzkehmgqnr8473 [place] [phone]. Nahed Yañez WBC 7.3 103/ul Normal 4.0-11.0 [facility] Comment on above: Performed By: #### C BC ####[facility] Urnlbtjckq4494 [place] [phone]. Nahed Yañez FREE THYROXINE INDEX T7on FTI 2.92 Normal 1.30-4.50 [facility] Comment on above: Performed By: #### B JEWEL BEARING DRILLER, LIPID, T7, TSH, CMP ####[facility] Spzoycqbju5354 [place] [phone]. Nahed Yañez T3U 34.0 % Normal 30.0-39.0 [facility] [facility] [place] Comment on above: Performed By: #### B JEWEL BEARING DRILLER, LIPID, T7, TSH, CMP ####[facility] [address] [place] [phone]. Nahed Yañez T4 [Mass/Vol] 8.60 ug/dL Normal 4.80-13.90 [facility] Comment on above: Performed By: #### B JEWEL BEARING DRILLER, LIPID, T7, TSH, CMP ####[facility] [address]pd[address] [place] [address]Dr. Nahed Yañez GLYCOHEMOGLOBIN A1Con 2021 ADA RECOMMENDATION SEE BELOW Normal [facility] Comment on above: Result Comment: ADA RECOMMENDED LIMIT 4.0 - 6.0 ADA THERAPEUTIC TARGET < 7.0 ACTION SUGGESTED > 7.0 Performed By: #### A 1C ####[facility] Zhjc[address]ubc[address] [place] [address]Dr. Nahed Yañez Glucose [Mass/Vol] 146 mg/dL Normal [facility] Comment on above: Performed By: #### A 1C ####[facility] Qewcbcjtit[address] [place] [address]Dr. Nahed Yañez HbA1c (Bld) [Mass fraction] 6.7 % Critically high 4.5-6.2 [facility] [place] Comment on above: Performed By: #### A 1C ####[facility] Wcnmf[address]hmi[address] [place] [phone]. Nahed Yañez IRONon 05-08-2022 Iron [Mass/Vol] 76.0 ug/dL Normal 50.0-170.0 [facility] Comment on above: Performed By: #### V ITAD, IRON ####[facility] Tjeflofyfp[address] [place] [phone]. Nahed Yañez LIPID PROFILEon 05-08-2022 CHOL-HDL RATIO NORM SEE BELOW Normal [facility] Comment on above: Result Comment: 3.3 - 4.4 LOW RISK 4.4 - 7.1 AVERAGE RISK 7.1 - 11.0 MODERATE RISK >11.0 HIGH RISK Performed By: #### B JEWEL BEARING DRILLER, LIPID, T7, TSH, CMP ####[facility] Twkjqjnzjl[address] [place] [address]Dr. Nahed Yañez Cholesterol [Mass/Vol] 167 mg/dL Normal <=200 [facility] Comment on above: Performed By: #### B JEWEL BEARING DRILLER, LIPID, T7, TSH, CMP ####[facility] Grwtyra[address] [place], [place] [address]Dr. Nahed Yañez Cholesterol in HDL [Mass/Vol] 63 mg/dL Critically high 40-60 [facility] [place] Comment on above: Performed By: #### B JEWEL BEARING DRILLER, LIPID, T7, TSH, CMP ####[facility] Nghwkomxgt7[address] [place], [place] [address]Dr. Nahed Yañez Cholesterol in LDL [Mass/Vol] 72.6 mg/dL Normal [facility] [place] Comment on above: Performed By: #### B JEWEL BEARING DRILLER, LIPID, T7, TSH, CMP ####[facility] Oewhnurieb[address] [place], [place] [address]Dr. Nahed Yañez Cholesterol.total/Chol esterol in HDL [Mass ratio] 2.7 {ratio} Normal [facility] [place] Comment on above: Performed By: #### B JEWEL BEARING DRILLER, LIPID, T7, TSH, CMP ####[facility] Pmsqbzaean[address] [place], [place] [address]Dr. Rosemarieashley Yañez HDL NORMAL > or = 60 mg/dl - LO W CARDIOVASCULAR RISK <40 mg/dl - HIGH CARDIOVASCULAR RISK Normal [facility] [place] Comment on above: Performed By: #### B JEWEL BEARING DRILLER, LIPID, T7, TSH, CMP ####[facility] Utoyuwbuuj[address] [place], [place] [address]Dr. Rosemarieashley Yañez LDL CALC NORMAL SEE BELOW Normal [facility] Comment on above: Result Comment: <100 mg/dl OPTIMAL 100 - 129 mg/dl NEAR OR ABOVE OPTIMAL 130 - 159 mg/dl BORDERLINE HIGH 160 - 189 mg/dl HIGH >190 mg/dl VERY HIGH Performed By: #### B JEWEL BEARING DRILLER, LIPID, T7, TSH, CMP ####[facility] Ijaqv[address]eci[address] [place] [phone]. Nahed Yañez Triglyceride [Mass/Vol] 157 mg/dL Critically high <=150 [facility] [place] Comment on above: Performed By: #### B JEWEL BEARING DRILLER, LIPID, T7, TSH, CMP ####[facility] Toocrpjxgb[address] [place] [address]Dr. Nahed Yañez VLDL CALC 31.4 mg/dL Normal [facility] [place] Comment on above: Performed By: #### B JEWEL BEARING DRILLER, LIPID, T7, TSH, CMP ####[facility] Zecbhnzlkz[address] [place] [address]Dr. Nahed Yañez OCC BLD IMMUNO SCREENon 04-14 OCCULT BLOOD Negative Normal NEGATIVE [facility] [place] Comment on above: Performed By: #### O BSCRN ####[facility] Mkaxcxmpja[address] [place] [address]Dr. Nahed Yañez PROF 14(COMP METB)on 022 Albumin [Mass/Vol] 3.7 g/dL Normal 3.4-5.0 [facility] Comment on above: Performed By: #### B JEWEL BEARING DRILLER, LIPID, T7, TSH, CMP ####[facility] Zogrvdjaft[address] [place] [address]Dr. Nahed Yañez Albumin/Globulin [Mass ratio] 0.9 {ratio} Normal [facility] [place] Comment on above: Performed By: #### B JEWEL BEARING DRILLER, LIPID, T7, TSH, CMP ####[facility] Uercyhirei[address] [place] [address]Dr. Nahed Yañez ALP [Catalytic activity/Vol] 99 U/L Normal 46-116 [facility] Comment on above: Performed By: #### B JEWEL BEARING DRILLER, LIPID, T7, TSH, CMP ####[facility] Fsztllgrxu19[address] [place] [address]Dr. Nahed Yañez ALT [Catalytic activity/Vol] 20 U/L Normal 14-59 [facility] [place] Comment on above: Performed By: #### B JEWEL BEARING DRILLER, LIPID, T7, TSH, CMP ####[facility] Tglrjtdqno4239 [place] [address]Dr. Nahed Yañez Anion gap [Moles/Vol] 10.6 mmol/L Normal Th e [facility] Comment on above: Performed By: #### B JEWEL BEARING DRILLER, LIPID, T7, TSH, CMP ####[facility] Wxflkjjgud[address] [place] [address]Dr. Nahed Yañez AST [Catalytic activity/Vol] 29 U/L Normal 15-37 [facility] [place] Comment on above: Performed By: #### B JEWEL BEARING DRILLER, LIPID, T7, TSH, CMP ####[facility] Tbuzusdtgx[address] [place] [address]Dr. Nahed Yañez Bilirubin [Mass/Vol] 0.4 mg/dL Normal 0.2-1.0 [facility] [place] Comment on above: Performed By: #### B JEWEL BEARING DRILLER, LIPID, T7, TSH, CMP ####[facility] Wseuejnntk[address] [place], [place] [address]Dr. Nahed Yañez Calcium [Mass/Vol] 9.3 mg/dL Normal 8.5-10.1 [facility] Comment on above: Performed By: #### B JEWEL BEARING DRILLER, LIPID, T7, TSH, CMP ####[facility] Yommuphxzm[address] [place], [place] [address]Dr. Nahed Yañez Chloride [Moles/Vol] 100 mmol/L Normal 98-107 [facility] [place] Comment on above: Performed By: #### B JEWEL BEARING DRILLER, LIPID, T7, TSH, CMP ####[facility] Ptuhqsdgnw[address] [place], [place] [address]Dr. Nahed Yañez CO2 [Moles/Vol] 31.4 mmol/L Normal 21.0-32.[address] [facility] Comment on above: Performed By: #### B JEWEL BEARING DRILLER, LIPID, T7, TSH, CMP ####[facility] Rwdnmxeonk[address] [place], [place] [address]Dr. Nahed Yañez Creatinine [Mass/Vol] 1.01 mg/dL Normal 0.55-1.02 [facility] [place] Comment on above: Performed By: #### B JEWEL BEARING DRILLER, LIPID, T7, TSH, CMP ####[facility] Gtyutevucv[address] [place] [address]Dr. Nahed Yañez EGFR-AF MALDIVIAN >60 Normal >=[address] [facility] Comment on above: Performed By: #### B JEWEL BEARING DRILLER, LIPID, T7, TSH, CMP ####[facility] Mvizxctdxk4[address] [place] [address]Dr. Nahed Yañez EGFR-NON AF MALDIVIAN 56 mL/min/1.73m2 Critically low >=60 [facility] Comment on above: Performed By: #### B JEWEL BEARING DRILLER, LIPID, T7, TSH, CMP ####[facility] Qzimfjpetc[address] [place], [place] [address]Dr. Nahed Yañez Globulin (S) [Mass/Vol] 3.9 g/dL Normal [facility] [place] Comment on above: Performed By: #### B JEWEL BEARING DRILLER, LIPID, T7, TSH, CMP ####[facility] Kckskguerz[address] [place], [place] [address]Dr. Nahed Yañez Glucose [Mass/Vol] 111 mg/dL Critically high 74-106 [facility] Comment on above: Performed By: #### B JEWEL BEARING DRILLER, LIPID, T7, TSH, CMP ####[facility] Ysbnwcnxkc[address] [place], [place] [address]Dr. Nahed Yañez Potassium [Moles/Vol] 4.0 mmol/L Normal 3.5-5.1 [facility] Comment on above: Performed By: #### B JEWEL BEARING DRILLER, LIPID, T7, TSH, CMP ####[facility] Ebthqupojd[address] [place], [place] [address]Dr. Nahed Yañez Protein [Mass/Vol] 7.6 g/dL Normal 6.4-8.2 [facility] Comment on above: Performed By: #### B JEWEL BEARING DRILLER, LIPID, T7, TSH, CMP ####[facility] Amkfbdyzmv[address] [place], [place] [address]Dr. Nahed Yañez Sodium [Moles/Vol] 138 mmol/L Normal 136-145 [facility] Comment on above: Performed By: #### B JEWEL BEARING DRILLER, LIPID, T7, TSH, CMP ####[facility] Quuaoeatet[address] [place], [place] [address]Dr. Nahed Yañez Urea nitrogen [Mass/Vol] 17.0 mg/dL Normal 7.0-18.0 [facility] Comment on above: Performed By: #### B JEWEL BEARING DRILLER, LIPID, T7, TSH, CMP ####[facility] Weitmvovvb8204 [place] [address]Dr. Nahed Yañez Urea nitrogen/Creatinine [Mass ratio] 16.8 mg/mg Normal [facility] [place] Comment on above: Performed By: #### B JEWEL BEARING DRILLER, LIPID, T7, TSH, CMP ####[facility] Lxluntjbqd30[address] [place] [phone]. Nahed Yañez TSHon 05-08-2022 TSH 2.835 uIU/mL Normal 0.358-3.740 [facility] Comment on above: Performed By: #### B JEWEL BEARING DRILLER, LIPID, T7, TSH, CMP ####[facility] Ohwsfwyggw24[address] [place] [address]Dr. Nahed Yañez VITAMIN D 25 OHon 05-08-2022 VIT D 25-OH 13.4 ng/mL Normal [facility] [place] Comment on above: Performed By: #### V ITLUISA, IRON ####[facility] [address]zxininsbi[address] [place], [place] [address]Dr. Nahed Yañez VIT D RANGES SEE BELOW Normal [facility] Comment on above: Result Comment: <20 ng/mL Vit D deficient 20 - <30 ng/mL Vit D insufficient 30 - 100 ng/mL Vit D sufficient >100 ng/mL Potential Toxicity Performed By: #### V ITLUISA, IRON ####[facility] [address]tkwxnlhsv[address] [place] [address]Dr. Nahed Yañez CARDIAC FRANCISCO 3-6on 2 CK [Catalytic activity/Vol] 37 U/L Normal 26-192 [facility] Comment on above: Performed By: #### C MREP ####[facility] Ellfxhtmnr[address] [place] [address]Dr. Nahed Yañez CK.MB [Mass/Vol] 0.79 ng/mL Normal <=3.60 [facility] Comment on above: Performed By: #### C MREP ####[facility] Mo[address]qffike[address] [place] [address]Dr. Nahed Yañez HSTROP 55.3 pg/mL Critically high 4.0-51.3 [facility] Comment on above: Result Comment: CUT- OFF POINTS HAVE BEEN ESTABLISHED BASED ON THE FOURTH UNIVERSAL DEFINITIONS OF MYOCARDIALINFARCTION. THE UPPER REFERENCE LIMIT (URL) OF TROPONIN, DEFINED THE 99TH PERCENTILE OFcTnI DISTRIBUTION IN A REFERENCE POPULATION, HAS BEEN CONFIRMED THE DECISION THRESHOLDFOR [place] DIAGNOSIS. Performed By: #### C MREP ####[facility] [address] [place] [phone]. Nahed Yañez CK [Catalytic activity/Vol] 49 U/L Normal 26-192 [facility] Comment on above: Performed By: #### C MREP ####[facility] Saalpwktzj[address] [place] [address]Dr. Nahed Yañez CK.MB [Mass/Vol] 0.71 ng/mL Normal <=3.[address] [facility] Comment on above: Performed By: #### C MREP ####[facility] Fptmjqpjwb7866 [place] [phone]. Nahed Yañez HSTROP 62.6 pg/mL Critically high 4.0-51.3 [facility] Comment on above: Result Comment: CUT- OFF POINTS HAVE BEEN ESTABLISHED BASED ON THE FOURTH UNIVERSAL DEFINITIONS OF MYOCARDIALINFARCTION. THE UPPER REFERENCE LIMIT (URL) OF TROPONIN, DEFINED THE 99TH PERCENTILE OFcTnI DISTRIBUTION IN A REFERENCE POPULATION, HAS BEEN CONFIRMED THE DECISION THRESHOLDFOR [place] DIAGNOSIS. Performed By: #### C MREP ####[facility] Yupfzdjszb30[address] [place] [phone]. Nahed Yañez Covid-19 PCR (CVDTB)on 01-13 SARS-CoV-2 (COVID-19) RNA MIRNA+probe Ql (Unsp spec) Not detected Normal NOT DETECTED [facility] Comment on above: Result Comment: [...] for this test is supported by the [place] [employer] and [employer] Service's declaration that [...] longer be used). Performed By: #### [facility] ####[facility] Xarlbzlj[address] [place], [place] [address]Dr. Nahed Yañez ECHO LIMITED STUDYon 022 ECHO LIMITED STUDY Normal [facility] GLYCOHEMOGLOBIN A1Con 2021 ADA RECOMMENDATION SEE BELOW Normal [facility] Comment on above: Result Comment: ADA RECOMMENDED LIMIT 4.0 - 6.0 ADA THERAPEUTIC TARGET < 7.0 ACTION SUGGESTED > 7.0 Performed By: #### A 1C ####[facility] Hnumbfnnho[address] [place], [place] [address]Dr. Nahed Yañez Glucose [Mass/Vol] 140 mg/dL Normal [facility] Comment on above: Performed By: #### A 1C ####[facility] [address]wuznwrqkl[address] [place], [place] [address]Dr. Nahed Yañez HbA1c (Bld) [Mass fraction] 6.5 % Critically high 4.5-6.2 [facility] [place] Comment on above: Performed By: #### A 1C ####[facility] Gvavajzxaf[address] [place], [place] [address]Dr. Nahed Yañez LIPID PROFILEon 01-31-2022 CHOL-HDL RATIO NORM SEE BELOW Normal [facility] Comment on above: Result Comment: 3.3 - 4.4 LOW RISK 4.4 - 7.1 AVERAGE RISK 7.1 - 11.0 MODERATE RISK >11.0 HIGH RISK Performed By: #### L IPID ####[facility] S[address]wjsgksmr[address] [place], [place] [address]Dr. Nahed Yañez Cholesterol [Mass/Vol] 152 mg/dL Normal <=200 [facility] Comment on above: Performed By: #### L IPID ####[facility] Swxq[address]junic7[address] [place], [place] [address]Pi. Nahed Yañez Cholesterol in HDL [Mass/Vol] 74 mg/dL Critically high 40-60 [facility] [place] Comment on above: Performed By: #### L IPID ####[facility] Sixhbwqpkw2856 [place] [phone]. Nahed Yañez Cholesterol in LDL [Mass/Vol] 62.8 mg/dL Normal [facility] [place] Comment on above: Performed By: #### L IPID ####[facility] Uvbwsikapt3[address] [place] [phone]. Nahed Yañez Cholesterol.total/Chol esterol in HDL [Mass ratio] 2.1 {ratio} Normal [facility] [place] Comment on above: Performed By: #### L IPID ####[facility] Swgtrjyztn78[address] [place] [phone]. Nahed Yañez HDL NORMAL > or = 60 mg/dl - LO W CARDIOVASCULAR RISK <40 mg/dl - HIGH CARDIOVASCULAR RISK Normal [facility] [place] Comment on above: Performed By: #### L IPID ####[facility] Tfwejsvvzd[address] [place] [phone]. Nahed Yañez LDL CALC NORMAL SEE BELOW Normal [facility] Comment on above: Result Comment: <100 mg/dl OPTIMAL 100 - 129 mg/dl NEAR OR ABOVE OPTIMAL 130 - 159 mg/dl BORDERLINE HIGH 160 - 189 mg/dl HIGH >190 mg/dl VERY HIGH Performed By: #### L IPID ####[facility] Excbtntfpr[address] [place] [phone]. Nahed Yañez Triglyceride [Mass/Vol] 76 mg/dL Normal <=150 [facility] Comment on above: Performed By: #### L IPID ####[facility] Dkalzdcgrj7075 [place] [phone]. Nahed Yañez VLDL CALC 15.2 mg/dL Normal [facility] [place] Comment on above: Performed By: #### L IPID ####[facility] Zumabqimqb5[address] [place] [phone]. Nahed Yañez XR CHEST 1 Von 01-31-2022 XR CHEST 1 V Normal [facility] BNPon 01-30-2022 Natriuretic peptide B (Bld) [Mass/Vol] 150.0 pg/mL Normal <=900.0 [facility] Comment on above: Performed By: #### B MP, BNP, CMADM ####[facility] I[address]ixwsrbq[address] [place] [address]Dr. Rosemarieashley Yañez CARDIAC FRANCISCO ADMITon 022 CK [Catalytic activity/Vol] 88 U/L Normal 26-192 [facility] Comment on above: Performed By: #### B MP, BNP, CMADM ####[facility] Eianetzngh2474 [place] [address]Dr. Nahed Otilio CK.MB [Mass/Vol] 1.26 ng/mL Normal <=3.[address] [facility] Comment on above: Performed By: #### B MP, BNP, CMADM ####[facility] Uzurgmxupk[address] [place], [place] [address]Dr. Nahed Yañez HSTROP 69.3 pg/mL Critically high 4.0-51.3 [facility] Comment on above: Result Comment: CUT- OFF POINTS HAVE BEEN ESTABLISHED BASED ON THE FOURTH UNIVERSAL DEFINITIONS OF MYOCARDIALINFARCTION. THE UPPER REFERENCE LIMIT (URL) OF TROPONIN, DEFINED THE 99TH PERCENTILE OFcTnI DISTRIBUTION IN A REFERENCE POPULATION, HAS BEEN CONFIRMED THE DECISION THRESHOLDFOR [place] DIAGNOSIS. Performed By: #### B MP, BNP, CMADM ####[facility] Djqogldlhy87[address] [place] [address]Dr. Nahed Otilio ANDRE 59 ng/mL Normal 9-82 [facility] Comment on above: Performed By: #### B MP, BNP, CMADM ####[facility] Zuopmstlud24[address] [place] [address]Dr. Nahed Yañez CBC AUTO DIFFon 01-30-2022 BASO # 0.0 103/ul Normal 0.0-0.1 [facility] [place] Comment on above: Performed By: #### C BC ####[facility] Dhbrynjryn[address] [place], [place] [address]Dr. Nahed Yañez Basophils/100 WBC (Bld) 0.2 % Normal 0.2-2.0 [facility] Comment on above: Performed By: #### C BC ####[facility] Ilgpbqsnrl1264 [place] [address]Dr. Nahed Yañez EO # 0.1 103/ul Normal 0.0-0.7 [facility] Comment on above: Performed By: #### C BC ####[facility] Yxrcjqagyl2917 [place] [address]Dr. Nahed Yañez Eosinophils/100 WBC (Bld) 0.8 % Critically low 0.9-7.0 [facility] Comment on above: Performed By: #### C BC ####[facility] Ktfromaaor[address] [place], [place] [address]Dr. Nahed Yañez Erythrocyte distribution width (RBC) [Ratio] 14.9 % Normal 11.0-15.0 [facility] [place] Comment on above: Performed By: #### C BC ####[facility] Ioaknvaahw[address] [place], [place] [address]Dr. Nahed Yañez Hematocrit (Bld) [Volume fraction] 45.8 % Normal 36.0-48.0 [facility] Comment on above: Performed By: #### C BC ####[facility] Cmqsrujpih[address] [place], [place] [address]Dr. Nahed Yañez Hemoglobin (Bld) [Mass/Vol] 14.7 g/dL Normal 12.0-16.0 [facility] Comment on above: Performed By: #### C BC ####[facility] Skxnlgrxbd[address] [place], [place] [address]Dr. Nahed Yañez IG # 0.07 10e3/ul Critically high 0.00-0.03 [facility] Comment on above: Performed By: #### C BC ####[facility] Zvptoggvuy[address] [place], [place] [address]Dr. Nahed Yañez IG % 0.4 % Normal 0.0-0.5 [facility] Comment on above: Performed By: #### C BC ####[facility] Xgumqisldn[address] [place] [address]Dr. Nahed Otilio LYMPH # 2.3 103/ul Normal 1.2-3.8 [facility] Comment on above: Performed By: #### C BC ####[facility] Lagpteclsn[address] [place] [address]Dr. Nahed Otilio Lymphocytes/100 WBC (Bld) 12.5 % Critically low 20.5-60.0 [facility] Comment on above: Performed By: #### C BC ####[facility] Nibtsdghtt27[address] [place] [address]Dr. Nahed Otilio MANUAL DIFF REQ NO Normal [facility] Comment on above: Performed By: #### C BC ####[facility] Odteljalkb8094 [place] [address]Dr. Nahed Otilio MCH (RBC) [Entitic mass] 28.0 pg Normal 26.7-34.0 [facility] Comment on above: Performed By: #### C BC ####[facility] Sljljxezhm[address] [place], [place] [address]Dr. Nahed Otilio MCHC (RBC) [Mass/Vol] 32.1 g/dL Normal 29.9-35.2 [facility] Comment on above: Performed By: #### C BC ####[facility] Fnnnnmzofp8352 [place] [address]Dr. Nahed Otilio MCV (RBC) [Entitic vol] 87.2 fL Normal 81.0-99.0 [facility] Comment on above: Performed By: #### C BC ####[facility] Cpsxqydijr10[address] [place] [address]Dr. Nahed Otilio MONO # 0.9 103/ul Critically high 0.3-0.8 [facility] Comment on above: Performed By: #### C BC ####[facility] Wpshrunhoe[address] [place], [place] [address]Dr. Nahed Otilio Monocytes/100 WBC (Bld) 5.1 % Normal 1.7-12.0 [facility] Comment on above: Performed By: #### C BC ####[facility] Krjpiaqdsa76[address] [place] [address]Dr. Nahed Yañez NEUT # 14.6 103/ul Critically high 1.4-6.[address] [facility] Comment on above: Performed By: #### C BC ####[facility] Ydpvtywikd2413 [place] [address]Dr. Nahed Yañez Neutrophils/100 WBC (Bld) 81.0 % Critically high 43.0-75.0 [facility] Comment on above: Performed By: #### C BC ####[facility] Pbzdcnamas5618 [place] [address]Dr. Nahed Yañez Platelet mean volume (Bld) [Entitic vol] 10.3 fL Normal 9.5-13.5 [facility] Comment on above: Performed By: #### C BC ####[facility] Tisuxzjauw[address] [place] [address]Dr. Nahed Yañez PLT 280 103/ul Normal 150-450 [facility] Comment on above: Performed By: #### C BC ####[facility] Nluicpmupi[address] [place], [place] [address]Dr. Nahed Yañez RBC 5.25 106/ul Normal 4.20-5.40 [facility] Comment on above: Performed By: #### C BC ####[facility] Knlskynznp[address] [place], [place] [address]Dr. Nahed Yañez WBC 18.1 103/ul Critically high 4.0-11.0 [facility] Comment on above: Performed By: #### C BC ####[facility] Xdhvzuimfh[address] [place], [place] [address]Dr. Rosemarieashley Yañez PROF CHEM 8 (BAS METB)on Anion gap [Moles/Vol] 13.5 mmol/L Normal [facility] Comment on above: Performed By: #### B MP, BNP, CMADM ####[facility] Kqlutrtvtz0734 [place] [address]Dr. Nahed Yañez Calcium [Mass/Vol] 9.5 mg/dL Normal 8.5-10.1 [facility] Comment on above: Performed By: #### B MP, BNP, CMADM ####[facility] Thivxiajti6060 [place] [address]Dr. Nahed Yañez Chloride [Moles/Vol] 102 mmol/L Normal 98-107 [facility] Comment on above: Performed By: #### B MP, BNP, CMADM ####[facility] Owubtlgzlg[address]63 [place] [address]Dr. Nahed Yañez CO2 [Moles/Vol] 26.6 mmol/L Normal 21.0-32.[address] [facility] Comment on above: Performed By: #### B MP, BNP, CMADM ####[facility] Ihtygjvlzq[address] [place] [address]Dr. Nahed Yñaez Creatinine [Mass/Vol] 1.06 mg/dL Critically high 0.55-1.02 [facility] Comment on above: Performed By: #### B MP, BNP, CMADM ####[facility] Qokplnrzfl[address] [place], [place] [address]Dr. Nahed Yañez EGFR-AF MALDIVIAN >60 Normal >=[address] [facility] Comment on above: Performed By: #### B MP, BNP, CMADM ####[facility] Ubjjyzoivs[address] [place], [place] [address]Dr. Nahed Yañez EGFR-NON AF MALDIVIAN 53 mL/min/1.73m2 Critically low >=60 [facility] Comment on above: Performed By: #### B MP, BNP, CMADM ####[facility] [address] [place] [address]Dr. Nahed Yañez Glucose [Mass/Vol] 108 mg/dL Critically high 74-106 [facility] Comment on above: Performed By: #### B MP, BNP, CMADM ####[facility] [address] [place], [place] [address]Dr. Nahed Yañez Potassium [Moles/Vol] 4.1 mmol/L Normal 3.5-5.1 [facility] Comment on above: Performed By: #### B MP, BNP, CMADM ####[facility] [address] [place] [address]Dr. Nahed Yañez Sodium [Moles/Vol] 138 mmol/L Normal 136-145 [facility] Comment on above: Performed By: #### B MP, BNP, CMADM ####[facility] [address] [place], [place] [address]Te. Nahed Yañez Urea nitrogen [Mass/Vol] 9.0 mg/dL Normal 7.0-18.0 [facility] Comment on above: Performed By: #### B MP, BNP, CMADM ####[facility] Fx[address] [place], [place] [address]Lb. Rosemarieashley Yañez Urea nitrogen/Creatinine [Mass ratio] 8.5 mg/mg Normal [facility] Comment on above: Performed By: #### B MP, BNP, CMADM ####[facility] [address] [place], [place] [address]Aa. Nahed Yañez Cardiovascular Lab Reporton 11-03-2021 Cardiovascular Lab Report [facility] Patient Name: Vivian Vann [facility] MR #: [id number] Physician: Gasper Avendano, Department of M.D. Medicine Service Date: 11/02/2021 Division of Birthdate: 1960 Cardiology Room #: 4AB [id number] [facility] [place] [address] Cardiovascular Laboratory Report FINAL IMPRESSIONS: 1. Severe, [...] anterior descending coronary artery, placement of a 6-Zambian MynxGrip closure device. METHODS: After risks, benefits, and alternatives were explained, written informed consent was obtained. The patient was prepped and draped in usual sterile fashion over both groins. Using 1% lidocaine solution, local infiltration anesthesia was achieved over the right groin. Under ultrasound guidance, a micropuncture kit was used to access the right common femoral artery. This was upsized to a 6-Zambian 11 cm sheath. Angiography via the 6-Zambian sheath was performed. Bilateral selective coronary angiography was performed using JL4 and JR4 catheters. After reviewing the images, it was elected to proceed with an interventional procedure. A 6-Zambian XB3.5 guide catheter was advanced over a [...] artery, angiography was repeated initially using a 6-Zambian 3DRC catheter and subsequently using a 4-Zambian JR4 catheter. After administration of intracoronary nitroglycerin, the concerning lesion almost completely resolved. There was a residual mild stenosis. All catheters removed. A 6-Zambian MynxGrip closure device was deployed per protocol [...] and anatomy suitable for closure device. INDICATION: Vig-ZV-kahuoyzzd myocardial infarction. Electronically Signed by: Gasper Avendano M.D. 11/21/2021 02:07 P Gasper Avendano M.D (more content not included)... Normal [facility] CBC COMPLETE BLOOD COUNTon 0 - Erythrocyte distribution width (RBC) [Ratio] 14.7 % Normal 11.5-15.0 [facility] Comment on above: Order Comment: No: D o not add to previous draw Performed By: #### 3 9450, 61217 #### [facility] [address] Hematocrit (Bld) [Volume fraction] 34.5 % Low 36.0-45.0 [facility] Comment on above: Order Comment: No: D o not add to previous draw Performed By: #### 3 4670, 92738 #### [facility] [address] [facility] [place] [address], [facility] Hemoglobin (Bld) [Mass/Vol] 10.6 g/dL Low 12.0-15.0 [facility] Comment on above: Order Comment: No: D o not add to previous draw Performed By: #### 3 9090, 08500 #### [facility] [address] [place] [address], [facility] MCH (RBC) [Entitic mass] 28.1 pg Normal 27.0-33.0 [facility] Comment on above: Order Comment: No: D o not add to previous draw Performed By: #### 3 520, 65456 #### [facility] [address] [place] [address], [facility] MCHC (RBC) [Mass/Vol] 30.7 g/dL Low 32.0-35.0 [facility] Comment on above: Order Comment: No: D o not add to previous draw Performed By: #### 3 5199, 87818 #### [facility] 3000 [facility] [place] [address], [facility] MCV (RBC) [Entitic vol] 91.5 fL Normal 82.0-98.0 [facility] Comment on above: Order Comment: No: D o not add to previous draw Performed By: #### 3 5199, 14768 #### [facility] [address] [facility] [place] [place] [address], [facility] Nucleated RBC/100 WBC (Bld) [Ratio] 0 % Normal 0-0 [facility] Comment on above: Order Comment: No: D o not add to previous draw Performed By: #### 3 5199, 64682 #### [facility] [address] [facility] [place] [place] [address], [facility] PLAT CNT 219 10*3/uL Normal 150-400 [facility] Comment on above: Order Comment: No: D o not add to previous draw Performed By: #### 3 5199, 61887 #### [facility] [address] [facility] [place] [address], [facility] RBC (Bld) [#/Vol] 3.77 10*6/uL Low 3.80-5.00 [facility] Comment on above: Order Comment: No: D o not add to previous draw Performed By: #### 3 5199, 48762 #### [facility] [address] [place] [address], [facility] WBC (Bld) [#/Vol] 13.64 10*3/uL High 4.00-10.60 [facility] Comment on above: Order Comment: No: D o not add to previous draw Performed By: #### 3 5200, 24891 #### [facility] [address] [place] [address], [facility] HEMOGLOBIN A1Con 11-02-2021 Glucose [Moles/Vol] 140 mmol/L Normal [facility] Comment on above: Order Comment: No: D o not add to previous draw Performed By: #### 3 1791 #### [facility] [address] [place] [address], [facility] HbA1c (Bld) [Mass fraction] 6.5 % High 4.0-6.0 [facility] Comment on above: Order Comment: No: D o not add to previous draw Performed By: #### 3 1791 #### [facility] [address] [place] [address], [facility] LIPID PROFILEon 11-02-2021 Cholesterol [Mass/Vol] 171 mg/dL Normal 120-200 [facility] Comment on above: Order Comment: No: D o not add to previous draw Result Comment: CHOL ESTEROL REFERENCE RANGE: 20 YEARS AND OLDER CARDIOVASCULAR RISK Less than 200 mg/dl Low Risk 200 to 239 mg/dl Borderline Risk 240 mg/dl and greater High Risk Performed By: #### 3 5200, 50529 #### [facility] [address] [place] [address], [facility] Cholesterol in HDL [Mass/Vol] 57 mg/dL Normal 23-92 [facility] Comment on above: Order Comment: No: D o not add to previous draw Result Comment: Slig ht variation in normal range could be due to gender and/or age. HDL CHOLESTEROL REFERENCE RANGE: 20 years and older Cardiovascular Risk > or =60 mg/dL Desirable 40 TO 59 mg/dL Low Risk <40 mg/dL High Risk Performed By: #### 3 5200, 83574 #### [facility] [address] [place] [address], [facility] Cholesterol in LDL [Mass/Vol] 89 mg/dL Normal 0-130 [facility] Comment on above: Order Comment: No: D o not add to previous draw Result Comment: LDL IS A CALCULATION LDL IS ONLY VALID IF THE TRIG IS LESS THAN 400. Performed By: #### 3 5200, 22383 #### [facility] [address] [place] [address], [facility] Cholesterol.total/Chol esterol in HDL [Mass ratio] 3.0 {ratio} Normal .0-4.5 [facility] Comment on above: Order Comment: No: D o not add to previous draw Performed By: #### 3 5200, 58007 #### [facility] [address] [place] [address], [facility] NON-HDL CHOLESTEROL 114 mg/dL Normal [facility] Comment on above: Order Comment: No: D o not add to previous draw Performed By: #### 3 5200, 75866 #### [facility] [address] [place] [address], [facility] Triglyceride [Mass/Vol] 124 mg/dL Normal 40-149 [facility] Comment on above: Order Comment: No: D o not add to previous draw Result Comment: TRIG LYCERIDE REFERENCE RANGE: 20 YEARS AND OLDER CARDIOVASCULAR RISK LESS THAN 150 mg/dl LOW RISK 150 TO 199 mg/dl BORDERLINE RISK 200 mg/dl AND GREATER HIGH RISK Performed By: #### 3 5200, 01199 #### [facility] [address] [place] [address], [facility] VLDL CHOL 25 mg/dL Normal 0-40 [facility] Comment on above: Order Comment: No: D o not add to previous draw Performed By: #### 3 5200, 30876 #### [facility] [address] [place] [address], [facility] TROPONIN-Ion 11-02-2021 Troponin I.cardiac [Mass/Vol] 0.14 ng/mL Critically high 0.00-0.04 [facility] Comment on above: Result Comment: M-MO EVIOUS CRITICAL RESULT REFERENCE RANGES: 0.00 - 0.04 ng/ml NORMAL 0.05 - 0.50 ng/ml INDETERMINATE > 0.50 ng/ml CONSISTENT WITH AN M.I. Performed By: #### 3 5200, 86509 #### [facility] [address] Troponin I.cardiac [Mass/Vol] 0.19 ng/mL Critically high 0.00-0.04 [facility] Comment on above: Order Comment: No: D o not add to previous draw Result Comment: M-MO EVIOUS CRITICAL RESULT REFERENCE RANGES: 0.00 - 0.04 ng/ml NORMAL 0.05 - 0.50 ng/ml INDETERMINATE > 0.50 ng/ml CONSISTENT WITH AN M.I. Performed By: #### 3 5200 #### [facility] [address] [place] [address], [facility] TYPE AND SCREENon 11-02-2021 ABO INTERPRETATION O Normal [facility] Comment on above: Performed By: #### 3 5200, 31962 #### [facility] [address] [facility] [place] [address], [facility] RH INTERPRETATION Positive Normal [facility] Comment on above: Performed By: #### 3 5200, 97175 #### [facility] [address] [facility] [place] [address], [facility] UFH HEPARIN ASSAYon 11-03-19 22 UNFRACTIONATED HEPARIN 0.76 IU/mL High 0.30-0.70 [facility] Comment on above: Result Comment: Clare roxaban and Apixaban will interfere with the anti Xa assay used to monitor UFH and LMWH. Performed By: #### 3 5200, 93194 #### [facility] 3000 [facility]. [address] UNFRACTIONATED HEPARIN 0.96 IU/mL Critically high 0.30-0.7 0 [facility] Comment on above: Result Comment: Resu lt checked and called. Accurately read back by Kathy Suárez RN at 0548 Rivaroxaban and Apixaban will interfere with the anti Xa assay used to monitor UFH and LMWH. Performed By: #### 3 0477 #### [facility] 3000 [facility]. [address] APTTon 11-01-2021 aPTT Coag (Bld) [Time] 28.6 s Normal 25.0-35.0 [facility] Comment on above: Order Comment: No: D [...] THIS PURPOSE. Performed By: #### 3 5200, 20408 #### [facility] [address] [place] [address], [facility] BNPon 11-01-2021 Natriuretic peptide B (Bld) [Mass/Vol] 9643.0 pg/mL Critically high <=900.0 [facility] Comment on above: Performed By: #### C MP, BNP, HSTROPN ####[facility] [address] [place], [place] [address]Up. Nahed Yañez BNP (B-TYPE NATRIURETIC PEPT AYLEEN)on 11-01-2021 Natriuretic peptide B (Bld) [Mass/Vol] 768 pg/mL High 0-100 [facility] Comment on above: Order Comment: No: D o not add to previous draw Result Comment: Give n the appropriate clinical setting a BNP result of >100 pg/mL indicates congestive heart failure. Performed By: #### 8 5123 #### [facility] [address] [place] [address], [facility] CBC AUTO DIFFon 11-01-2021 BASO # 0.0 103/ul Normal 0.0-0.1 [facility] Comment on above: Performed By: #### C BC ####[facility] [address] [place], [place] [address]Dr. Nahed Yañez Basophils/100 WBC (Bld) 0.1 % Critically low 0.2-2.0 [facility] Comment on above: Performed By: #### C BC ####[facility] [address] [place], [place] [address]Dr. Nahed Yañez EO # 0.0 103/ul Normal 0.0-0.7 [facility] Comment on above: Performed By: #### C BC ####[facility] [address] [place], [place] [address]Dr. Nahed Yañez Eosinophils/100 WBC (Bld) 0.0 % Critically low 0.9-7.0 [facility] Comment on above: Performed By: #### C BC ####[facility] [address] [place], [place] [address]Dr. Nahed Yañez Erythrocyte distribution width (RBC) [Ratio] 14.7 % Normal 11.0-15.0 [facility] Comment on above: Performed By: #### C BC ####[facility] [address] [place], [place] [address]Dr. Nahed Yañez Hematocrit (Bld) [Volume fraction] 36.1 % Normal 36.0-48.0 [facility] Comment on above: Performed By: #### C BC ####[facility] Hzexv[address] [place], [place] [address]Dr. Nahed Yañez Hemoglobin (Bld) [Mass/Vol] 11.1 g/dL Critically low 12.0-16.0 [facility] Comment on above: Result Comment: IV a ntibiotics Performed By: #### C BC ####[facility] [address] [place], [place] [address]Dr. Nahed Yañez IG # 0.09 10e3/ul Critically high 0.00-0.03 [facility] Comment on above: Performed By: #### C BC ####[facility] [address] [place] [address]Dr. Nahed Yañez IG % 0.7 % Critically high 0.0-0.5 [facility] Comment on above: Performed By: #### C BC ####[facility] [address] [place] [address]Dr. Nahed Yañez LYMPH # 0.6 103/ul Critically low 1.2-3.8 [facility] Comment on above: Performed By: #### C BC ####[facility] [address] [place] [address]Dr. Nahed Yañez Lymphocytes/100 WBC (Bld) 4.8 % Critically low 20.5-60.0 [facility] Comment on above: Performed By: #### C BC ####[facility] [address] [place] [address]Dr. Nahed Yañez MANUAL DIFF REQ NO Normal [facility] Comment on above: Performed By: #### C BC ####[facility] [address] [place] [address]Dr. Nahed Yañez MCH (RBC) [Entitic mass] 28.2 pg Normal 26.7-34.0 [facility] Comment on above: Performed By: #### C BC ####[facility] [address] [place] [address]Dr. Nahed Yañez MCHC (RBC) [Mass/Vol] 30.7 g/dL Normal 29.9-35.2 [facility] Comment on above: Performed By: #### C BC ####[facility] Vu[address]rf[address] [place] [address]Dr. Nahed Yañez MCV (RBC) [Entitic vol] 91.9 fL Normal 81.0-99.0 [facility] Comment on above: Performed By: #### C BC ####[facility] [address] [place] [address]Dr. Nahed Yañez MONO # 0.2 103/ul Critically low 0.3-0.8 [facility] Comment on above: Performed By: #### C BC ####[facility] [address] [place] [address]Dr. Nahed Yañez Monocytes/100 WBC (Bld) 1.7 % Normal 1.7-12.0 [facility] Comment on above: Performed By: #### C BC ####[facility] [address] [place] [address]Dr. Nahed Yañez NEUT # 11.2 103/ul Critically high 1.4-6.[address] [facility] Comment on above: Performed By: #### C BC ####[facility] [address] [place] [address]Dr. Nahed Yañez Neutrophils/100 WBC (Bld) 92.7 % Critically high 43.0-75.0 [facility] Comment on above: Performed By: #### C BC ####[facility] [address] [place] [address]Dr. Nahed Yañez Platelet mean volume (Bld) [Entitic vol] 11.1 fL Normal 9.5-13.5 [facility] Comment on above: Performed By: #### C BC ####[facility] [address] [place] [address]Dr. Nahed Yañez PLT 213 103/ul Normal 150-450 [facility] Comment on above: Performed By: #### C BC ####[facility] [address] [place] [address]Dr. Nahed Yañez RBC 3.93 106/ul Critically low 4.20-5.40 [facility] Comment on above: Performed By: #### C BC ####[facility] [address] [place] [address]Dr. Nahed Yañez WBC 12.0 103/ul Critically high 4.0-11.[address] [facility] Comment on above: Performed By: #### C BC ####[facility] [address] [place] [address]Dr. Nahed Yañez CBC W/DIFFon 11-01-2021 ABS IMM GRANS 0.2 10*3/uL Normal 0.0-0.2 [facility] Comment on above: Order Comment: No: D o not add to previous draw Performed By: #### 3 5200, 89119 #### [facility] [address] [place] [address], [facility] ABS NEUTROPHILS 12.5 10*3/uL High 1.6-7.6 [facility] Comment on above: Order Comment: No: D o not add to previous draw Performed By: #### 3 5199, 25161 #### [facility] [address] [place] [address], [facility] Basophils (Bld) [#/Vol] 0.0 10*3/uL Normal 0.0-0.2 [facility] Comment on above: Order Comment: No: D o not add to previous draw Performed By: #### 3 5199, 07373 #### [facility] [address] [place] [address], [facility] Basophils/100 WBC (Bld) 0.0 % Normal 0.0-1.0 [facility] Comment on above: Order Comment: No: D o not add to previous draw Performed By: #### 3 5199, 02805 #### [facility] [address] [place] [address], [facility] Eosinophils (Bld) [#/Vol] 0.0 10*3/uL Normal 0.0-0.5 [facility] Comment on above: Order Comment: No: D o not add to previous draw Performed By: #### 3 5199, 63482 #### [facility] [address] [place] [address], [place] Eosinophils/100 WBC (Bld) 0.0 % Normal 0.0-6.0 [facility] Comment on above: Order Comment: No: D o not add to previous draw Performed By: #### 3 5199, 68896 #### [facility] [address] [place] [address], [place] Erythrocyte distribution width (RBC) [Ratio] 14.6 % Normal 11.5-15.0 [facility] Comment on above: Order Comment: No: D o not add to previous draw Performed By: #### 3 5199, 92976 #### [facility] [address] [place] [address], [facility] Hematocrit (Bld) [Volume fraction] 36.6 % Normal 36.0-45.0 [facility] Comment on above: Order Comment: No: D o not add to previous draw Performed By: #### 3 5199, 97235 #### [facility] [address] [place] [address], [facility] Hemoglobin (Bld) [Mass/Vol] 11.4 g/dL Low 12.0-15.0 [facility] Comment on above: Order Comment: No: D o not add to previous draw Performed By: #### 3 5199, 67134 #### [facility] [address] [place] [address], [facility] IMMATURE GRANS 1.2 % High 0.0-1.0 [facility] Comment on above: Order Comment: No: D o not add to previous draw Performed By: #### 3 5199, 05687 #### [facility] [address] [place] [address], [facility] Lymphocytes (Bld) [#/Vol] 0.6 10*3/uL Low 1.2-4.0 [facility] Comment on above: Order Comment: No: D o not add to previous draw Performed By: #### 3 5199, 50533 #### [facility] [address] [place] [id number], [place] Lymphocytes/100 WBC (Bld) 4.2 % Low 20.0-45.0 [facility] Comment on above: Order Comment: No: D o not add to previous draw Performed By: #### 3 5199, 01037 #### [facility] [address] [place] [address], [facility] MCH (RBC) [Entitic mass] 28.2 pg Normal 27.0-33.0 [facility] Comment on above: Order Comment: No: D o not add to previous draw Performed By: #### 3 0, 66652 #### [facility] [address] [place] [address], [facility] MCHC (RBC) [Mass/Vol] 31.1 g/dL Low 32.0-35.0 [facility] Comment on above: Order Comment: No: D o not add to previous draw Performed By: #### 3 5199, 07420 #### [facility] [address] [place] [address], [facility] MCV (RBC) [Entitic vol] 90.6 fL Normal 82.0-98.0 [facility] Comment on above: Order Comment: No: D o not add to previous draw Performed By: #### 3 5199, 71803 #### [facility] [address] [place] [address], [facility] Monocytes (Bld) [#/Vol] 0.5 10*3/uL Normal 0.1-1.0 [facility] Comment on above: Order Comment: No: D o not add to previous draw Performed By: #### 3 5199, 58968 #### [facility] [address] [place] [address], [facility] MONOS 3.3 % Low 5.0-12.0 [facility] Comment on above: Order Comment: No: D o not add to previous draw Performed By: #### 3 5199, 64875 #### [facility] [address] [facility] [place] [address], [facility] Neutrophils/100 WBC (Bld) 91.3 % High 40.0-72.0 [facility] Comment on above: Order Comment: No: D o not add to previous draw Performed By: #### 3 5200, 57631 #### [facility] [address] [place] [address], [facility] Nucleated RBC/100 WBC (Bld) [Ratio] 0 % Normal 0-0 [facility] Comment on above: Order Comment: No: D o not add to previous draw Performed By: #### 3 5200, 82806 #### [facility] [address] [place] [id number], [facility] PLAT CNT 224 10*3/uL Normal 150-400 [facility] Comment on above: Order Comment: No: D o not add to previous draw Performed By: #### 3 5200, 90077 #### [facility] [address] [place] [address], [facility] RBC (Bld) [#/Vol] 4.04 10*6/uL Normal 3.80-5.00 The [facility] [facility] Comment on above: Order Comment: No: D o not add to previous draw Performed By: #### 3 5200, 50748 #### [facility] [address] [place] [address], [facility] WBC (Bld) [#/Vol] 13.70 10*3/uL High 4.00-10.60 [facility] Comment on above: Order Comment: No: D o not add to previous draw Performed By: #### 3 5200, 62710 #### [facility] [address] [place] [id number], [facility] COMP METABOLIC PANELon 11-01 Albumin [Mass/Vol] 3.7 g/dL Normal 3.5-5.7 [facility] Comment on above: Order Comment: No: D o not add to previous draw Performed By: #### 0 0121, 56198, 67580 #### [facility] [address] [place] [id number], [facility] ALKALINE PHOSPH 54 IU/L Normal 34-104 [facility] Comment on above: Order Comment: No: D o not add to previous draw Performed By: #### 0 0121, 01275, 42193 #### [facility] [address] [place] [address], [place] ALT [Catalytic activity/Vol] 12 U/L Normal 7-52 [facility] Comment on above: Order Comment: No: D o not add to previous draw Performed By: #### 0 0121, 70082, 44033 #### [facility] [address] [place] [address], [place] AST [Catalytic activity/Vol] 17 U/L Normal 13-39 [facility] Comment on above: Order Comment: No: D o not add to previous draw Performed By: #### 0 0121, 81201, 72077 #### [facility] [address] [place] [address], [place] Bilirubin [Mass/Vol] 0.3 mg/dL Normal 0.3-1.0 [facility] Comment on above: Order Comment: No: D o not add to previous draw Performed By: #### 0 0121, 42819, 03554 #### [facility] [address] [place] [address], [place] Calcium [Mass/Vol] 9.4 mg/dL Normal 8.6-10.3 [facility] Comment on above: Order Comment: No: D o not add to previous draw Performed By: #### 0 0121, 33803, 58396 #### [facility] [address] [place] [address], [place] Chloride [Moles/Vol] 100 mmol/L Normal 98-107 [facility] Comment on above: Order Comment: No: D o not add to previous draw Performed By: #### 0 0121, 85114, 98923 #### [facility] [address] [place] [address], [place] CO2 [Moles/Vol] 29 mmol/L Normal 21-31 [facility] Comment on above: Order Comment: No: D o not add to previous draw Performed By: #### 0 0121, 53507, 69025 #### [facility] [address] [place] [address], [place] Creatinine [Mass/Vol] 1.04 mg/dL Normal 0.60-1.20 [facility] Comment on above: Order Comment: No: D o not add to previous draw Performed By: #### 0 0121, 29892, 43166 #### [facility] [address] [place] [address], [place] eGFR- non- 54 ml/min/1.73sq m Abnormal >60 [facility] Comment on above: Order Comment: No: D o not add to previous draw Performed By: #### 0 0121, 61247, 50224 #### [facility] [address] [place] [address], [place] GFR/1.73 sq M.predicted among blacks MDRD (S/P/Bld) [Vol rate/Area] mL/min/{1.73_m2} Normal >60 [facility] Comment on above: Order Comment: No: D o not add to previous draw Performed By: #### 0 0121, 66697, 95852 #### [facility] [address] [place] [address], [place] Glucose [Mass/Vol] 239 mg/dL High 70-100 [facility] Comment on above: Order Comment: No: D o not add to previous draw Performed By: #### 0 0121, 07433, 14983 #### [facility] [address] [place] [address], [place] Potassium [Moles/Vol] 4.3 mmol/L Normal 3.5-5.1 [facility] Comment on above: Order Comment: No: D o not add to previous draw Performed By: #### 0 0121, 43708, 32724 #### [facility] [address] [place] [address], [place] Protein [Mass/Vol] 5.6 g/dL Low 6.0-8.3 [facility] Comment on above: Order Comment: No: D o not add to previous draw Performed By: #### 0 0121, 06183, 19913 #### [facility] [address] [place] [address], [facility] Sodium [Moles/Vol] 139 mmol/L Normal 136-145 [facility] Comment on above: Order Comment: No: D o not add to previous draw Performed By: #### 0 0121, 47021, 39338 #### [facility] [address] [place] [address], [facility] Urea nitrogen [Mass/Vol] 24 mg/dL Normal 7-25 [facility] Comment on above: Order Comment: No: D o not add to previous draw Performed By: #### 0 0121, 70361, 47013 #### [facility] [address] [place] [address], [facility] MAGNESIUM BLOODon 11-01-2021 Magnesium [Mass/Vol] 2.0 mg/dL Normal 1.9-2.7 [facility] Comment on above: Order Comment: No: D o not add to previous draw Performed By: #### 0 0121, 49067, 36057 #### [facility] [address] [place] [address], [facility] PROF 14(COMP METB)on 022 Albumin [Mass/Vol] 3.1 g/dL Critically low 3.4-5.0 [facility] Comment on above: Performed By: #### C MP, BNP, HSTROPN ####[facility] [address] [place] [address]DrShaun Yañez Albumin/Globulin [Mass ratio] 1.0 {ratio} Normal [facility] Comment on above: Performed By: #### C MP, BNP, HSTROPN ####[facility] [address] [place] [address]DrShaun Yañez ALP [Catalytic activity/Vol] 56 U/L Normal 46-116 [facility] Comment on above: Performed By: #### C MP, BNP, HSTROPN ####[facility] Zhpxelegud1712 [place] [address]Dr. Nahed Yañez ALT [Catalytic activity/Vol] 19 U/L Normal 14-59 [facility] Comment on above: Performed By: #### C MP, BNP, HSTROPN ####[facility] Xiyuickhaw4601 [place] [address]Dr. Nahed Yañez Anion gap [Moles/Vol] 14.3 mmol/L Normal Th e [facility] Comment on above: Performed By: #### C MP, BNP, HSTROPN ####[facility] [address] [place], [place] [address]Dr. Nahed Yañez AST [Catalytic activity/Vol] 18 U/L Normal 15-37 [facility] Comment on above: Performed By: #### C MP, BNP, HSTROPN ####[facility] Ut[address]soqw[address] [place] [address]Dr. Nahed Yañez Bilirubin [Mass/Vol] 0.4 mg/dL Normal 0.2-1.0 [facility] Comment on above: Performed By: #### C MP, BNP, HSTROPN ####[facility] [address] [place] [address]Dr. Nahed Yañez Calcium [Mass/Vol] 9.3 mg/dL Normal 8.5-10.1 [facility] Comment on above: Performed By: #### C MP, BNP, HSTROPN ####[facility] Mnszeypfos9213 [place] [address]Dr. Nahed Yañez Chloride [Moles/Vol] 102 mmol/L Normal 98-107 [facility] Comment on above: Performed By: #### C MP, BNP, HSTROPN ####[facility] Vp[address] [place] [address]Dr. Nahed Yañez CO2 [Moles/Vol] 27.1 mmol/L Normal 21.0-32.0 [facility] Comment on above: Performed By: #### C MP, BNP, HSTROPN ####[facility] Zcf[address]zh[address]l30[address] [place] [address]Dr. Nahed Yañez Creatinine [Mass/Vol] 1.25 mg/dL Critically high 0.55-1.02 [facility] Comment on above: Performed By: #### C MP, BNP, HSTROPN ####[facility] Jffiybvoxg[address] [place] [address]Dr. Nahed Yañez EGFR-AF MALDIVIAN 53 mL/min/1.73m2 Critically low >=60 [facility] Comment on above: Performed By: #### C MP, BNP, HSTROPN ####[facility] Z[address]gtjx[address] [place], [place] [address]Dr. Nahed Yañez EGFR-NON AF MALDIVIAN 44 mL/min/1.73m2 Critically low >=60 [facility] Comment on above: Performed By: #### C MP, BNP, HSTROPN ####[facility] W[address] [place], [place] [address]Dr. Nahed Yañez Globulin (S) [Mass/Vol] 3.2 g/dL Normal [facility] Comment on above: Performed By: #### C MP, BNP, HSTROPN ####[facility] [address] [place], [place] [address]Dr. Nahed Yañez Glucose [Mass/Vol] 248 mg/dL Critically high 74-106 T [facility] Comment on above: Performed By: #### C MP, BNP, HSTROPN ####[facility] Z[address]ke[address] [place], [place] [address]Dr. Nahed Yañez Potassium [Moles/Vol] 3.4 mmol/L Critically low 3.5-5.1 [facility] Comment on above: Performed By: #### C MP, BNP, HSTROPN ####[facility] Vbeq[address]infzn[address] [place], [place] [address]Dr. Nahed Yañez Protein [Mass/Vol] 6.3 g/dL Critically low 6.4-8.2 Th [facility] Comment on above: Performed By: #### C MP, BNP, HSTROPN ####[facility] [address] [place] [id number]. Nahed Yañez Sodium [Moles/Vol] 140 mmol/L Normal 136-145 [facility] Comment on above: Performed By: #### C MP, BNP, HSTROPN ####[facility] V[address]pmhmjwu49[address] [place] [id number]. Nahed Yañez Urea nitrogen [Mass/Vol] 18.0 mg/dL Normal 7.0-18.0 [facility] Comment on above: Performed By: #### C MP, BNP, HSTROPN ####[facility] Khfxmysnrz9048 [place] [address]Dr. Nahed Yañez Urea nitrogen/Creatinine [Mass ratio] 14.4 mg/mg Normal [facility] Comment on above: Performed By: #### C MP, BNP, HSTROPN ####[facility] Lsbtqsqaex4382 [place] [address]Dr. Nahed Otilio PROTHROMBIN TIMEon 2 INR Coag (PPP) [Relative time] 1.06 {INR} Normal 0.91-1.16 [facility] Comment on above: Order Comment: No: [...] 1995;[id number]. Performed By: #### 5 6101 #### [facility] [address] [place] [address], [facility] PT Coag (PPP) [Time] 13.8 s Normal 12.3-14.8 [facility] Comment on above: Order Comment: No: D o not add to previous draw Result Comment: ALL RESULTS MUST BE INTERPRETED WITH RESPECT TO BLOOD DRAWING ARTIFACT OR DILUTION ERROR OF ANTICOAGULANT AT THE TIME OF SAMPLING. Performed By: #### 5 6101 #### [facility] [address] [place] [address], [facility] TROPONIN, HIGH SENSITIVITYon 11-01-2021 HSTROP 1684.4 pg/mL Critically high 4.0-51.3 [facility] Comment on above: Result Comment: CUT- OFF POINTS HAVE BEEN ESTABLISHED BASED ON THE FOURTH UNIVERSAL DEFINITIONS OF MYOCARDIALINFARCTION. THE UPPER REFERENCE LIMIT (URL) OF TROPONIN, DEFINED THE 99TH PERCENTILE OFcTnI DISTRIBUTION IN A REFERENCE POPULATION, HAS BEEN CONFIRMED THE DECISION THRESHOLDFOR [place] DIAGNOSIS. Performed By: #### C MP, BNP, HSTROPN ####[facility] [address]c26[address] [place] [address]DrShaun Yañez TROPONIN-Ion 11-01-2021 Troponin I.cardiac [Mass/Vol] 0.22 ng/mL Critically high 0.00-0.04 [facility] Comment on above: Order Comment: No: D o not add to previous draw Result Comment: M-TR OPONIN INITIAL CRITICAL HIGH; RESPUN AND RETESTED M-CRITICAL RESULT(S) REVIEWED, CALLED TO AND READ BACK BY Kathy Suárez RN at 2205. REFERENCE RANGES: 0.00 - 0.04 ng/ml NORMAL 0.05 - 0.50 ng/ml INDETERMINATE > 0.50 ng/ml CONSISTENT WITH AN M.I. Performed By: #### 0 0121, 03992, 05164 #### [facility] [address] [place] [address], [facility] UFH HEPARIN ASSAYon 06-21-20 22 UNFRACTIONATED HEPARIN 0.55 IU/mL Normal 0.30-0.70 Th e [facility] Comment on above: Result Comment: Clare roxaban and Apixaban will interfere with the anti Xa assay used to monitor UFH and LMWH. Performed By: #### 3 5200, 27628 #### [facility] [address] [place] [address], [facility] BLOOD GASES BTYon 10-31-2021 02 MODE ROOM AIR Normal [facility] Comment on above: Performed By: #### A BG ####[facility] [address]mq[address] [place] [address]Dr. Nahed Yañez ALLENS TEST Positive Normal [facility] Comment on above: Performed By: #### A BG ####[facility] Z[address]zlehnmv65[address] [place] [address]Dr. Nahed Yañez Base excess Calc (Bld) [Moles/Vol] 3.5 mmol/L Critically high -2.0-2.0 [facility] Comment on above: Performed By: #### A BG ####[facility] Squdvceirw3032 [place] [address]Dr. Nahed Yañez BIPAP PRESSURE Normal [facility] Comment on above: Performed By: #### A BG ####[facility] Vvrsjynztp4362 [place] [address]Dr. Nahed Yañez CO2 [Moles/Vol] 56.3 mmol/L Critically high 23.0-28.0 [facility] Comment on above: Performed By: #### A BG ####[facility] Gvrjpcigaf7237 [place] [address]Dr. Nahed Yañez CPAP Normal [facility] Comment on above: Performed By: #### A BG ####[facility] Xbciuziiwp9674 [place] [address]Dr. Nahed Yañez FIO2 Normal [facility] Comment on above: Performed By: #### A BG ####[facility] Ydxxkorjfj0985 [place] [address]Dr. Nahed Yañez HCO3 (Bld) [Moles/Vol] 26.8 mmol/L Critically high 22.0-26 .0 [facility] Comment on above: Performed By: #### A BG ####[facility] Ntzr[address] [place], [place] [address]Dr. Nahed Yañez LPM Normal [facility] Comment on above: Performed By: #### A BG ####[facility] Hgcuimbtnb[address] [place], [place] [address]Dr. Nahed Yañez MINUTE VOLUME Normal [facility] Comment on above: Performed By: #### A BG ####[facility] Jsngfzlpzl[address] [place], [place] [address]Dr. Nahed Yañez Oxygen (Bld) [Partial pressure] 51.8 mm[Hg] Critically low 80.0-100.0 [facility] Comment on above: Performed By: #### A BG ####[facility] Zboopzrpou[address] [place], [place] [address]Dr. Nahed Yañez Oxygen saturation in Blood 86.3 % Critically low 95.0-100.0 [facility] Comment on above: Performed By: #### A BG ####[facility] Dhhnnstdfc[address] [place], [place] [address]Dr. Nahed Yañez PCO2 43.8 mmHg Normal 35.0-45.0 [facility] Comment on above: Performed By: #### A BG ####[facility] Wowltinlfe[address] [place], [place] [address]Dr. Nahed Yañez PEEP Normal [facility] Comment on above: Performed By: #### A BG ####[facility] Kqdjdivhyo[address] [place], [place] [address]Dr. Nahed Yañez pH (Bld) 7.415 [pH] Normal 7.350-7.450 [facility] Comment on above: Performed By: #### A BG ####[facility] Hxjthlxnek[address] [place], [place] [address]Dr. Nahed Yañez [facility] Comment on above: Performed By: #### A BG ####[facility] Ipqopldgpg[address] [place], [place] [address]Dr. Nahed Yañez [facility] Comment on above: Performed By: #### A BG ####[facility] Dghxpntlwf4797 [place] [address]Dr. Nahed Yañez PUNCTURE SITE RR Normal [facility] Comment on above: Performed By: #### A BG ####[facility] Rghwjagvzv9716 [place] [address]Dr. Nahed Yañez RATE Normal [facility] Comment on above: Performed By: #### A BG ####[facility] Jzmepgourm6167 [place] [address]Dr. Nahed Yañez VENT MODE Normal [facility] Comment on above: Performed By: #### A BG ####[facility] Dmpcnpbpqo0753 [place] [address]Dr. Nahed Yañez [facility] Comment on above: Performed By: #### A BG ####[facility] Rbesjewqig1070 [place] [address]Dr. Nahed Yañez BNPon 2 Natriuretic peptide B (Bld) [Mass/Vol] 86163.0 pg/mL Critically high <=900.0 [facility] Comment on above: Performed By: #### T 4, TSH, BNP, CMADM ####[facility] Gmm[address] [place], [place] [address]Dr. Nahed Yañez CARDIAC FRANCISCO 3-6on 2 CK [Catalytic activity/Vol] 91 U/L Normal 26-192 [facility] Comment on above: Performed By: #### C MREP ####[facility] Yxvuryhzbg8432 [place] [address]Dr. Nahed Yañez CK.MB [Mass/Vol] 7.32 ng/mL Critically high <=3.60 [facility] Comment on above: Result Comment: test repeated critical value verified Performed By: #### C MREP ####[facility] Kagyofbbpx[address] [place], [place] [address]Dr. Nahed Yañez HSTROP 2823.1 pg/mL Critically high 4.0-51.3 [facility] Comment on above: Result Comment: CUT- OFF POINTS HAVE BEEN ESTABLISHED BASED ON THE FOURTH UNIVERSAL DEFINITIONS OF MYOCARDIALINFARCTION. THE UPPER REFERENCE LIMIT (URL) OF TROPONIN, DEFINED THE 99TH PERCENTILE OFcTnI DISTRIBUTION IN A REFERENCE POPULATION, HAS BEEN CONFIRMED THE DECISION THRESHOLDFOR [place] DIAGNOSIS.test repeated critical value verified Performed By: #### C MREP ####[facility] Bodescumoi5[address] [place] [address]Dr. Nahed Yañez CARDIAC FRANCISCO ADMITon 022 CK [Catalytic activity/Vol] 85 U/L Normal 26-192 [facility] Comment on above: Performed By: #### T 4, TSH, BNP, CMADM ####[facility] Pvmoegyzav2405 [place] [address]Dr. Nahed Yañez CK.MB [Mass/Vol] 6.44 ng/mL Critically high <=3.60 [facility] Comment on above: Performed By: #### T 4, TSH, BNP, CMADM ####[facility] Osdczttfcl0826 [place] [address]Dr. Nahed Yañez HSTROP 3194.8 pg/mL Critically high 4.0-51.3 [facility] Comment on above: Result Comment: CUT- OFF POINTS HAVE BEEN ESTABLISHED BASED ON THE FOURTH UNIVERSAL DEFINITIONS OF MYOCARDIALINFARCTION. THE UPPER REFERENCE LIMIT (URL) OF TROPONIN, DEFINED THE 99TH PERCENTILE OFcTnI DISTRIBUTION IN A REFERENCE POPULATION, HAS BEEN CONFIRMED THE DECISION THRESHOLDFOR [place] DIAGNOSIS. Performed By: #### T 4, TSH, BNP, CMADM ####[facility] Eumurhctvd2586 [place] [address]Dr. Nahed Yañez ANDRE 57 ng/mL Normal 9-82 [facility] Comment on above: Performed By: #### T 4, TSH, BNP, CMADM ####[facility] Zxeoydsrpi1626 [place] [address]Dr. Nahed Yañez CBC AUTO DIFFon 10-31-2021 BASO # 0.0 103/ul Normal 0.0-0.1 [facility] Comment on above: Performed By: #### C BC ####[facility] Sijqcibiet32[address] [place] [address]Dr. Nahed Yañez Basophils/100 WBC (Bld) 0.2 % Normal 0.2-2.0 [facility] Comment on above: Performed By: #### C BC ####[facility] Qaegjbnisd[address] [place], [place] [address]Dr. Nahed Yañez EO # 0.0 103/ul Normal 0.0-0.7 [facility] Comment on above: Performed By: #### C BC ####[facility] Fkmqqdzlez4[address] [place], [place] [address]Dr. Nahed Yañez Eosinophils/100 WBC (Bld) 0.1 % Critically low 0.9-7.0 [facility] Comment on above: Performed By: #### C BC ####[facility] Hdonslxgpa[address] [place], [place] [address]Dr. Nahed Yañez Erythrocyte distribution width (RBC) [Ratio] 14.8 % Normal 11.0-15.0 [facility] Comment on above: Performed By: #### C BC ####[facility] Lnmdnscfwl[address] [place], [place] [address]Dr. Nahed Yañez Hematocrit (Bld) [Volume fraction] 44.4 % Normal 36.0-48.0 [facility] Comment on above: Performed By: #### C BC ####[facility] Zraytmbcur[address] [place], [place] [address]Dr. Nahed Yañez Hemoglobin (Bld) [Mass/Vol] 14.1 g/dL Normal 12.0-16.0 [facility] Comment on above: Performed By: #### C BC ####[facility] Ixrnljqsyk[address] [place], [place] [address]DrShaun Yañez IG # 0.04 10e3/ul Critically high 0.00-0.03 [facility] Comment on above: Performed By: #### C BC ####[facility] Ojwrgxjyen[address] [place], [place] [address]Dr. Nahed Yañez IG % 0.3 % Normal 0.0-0.5 [facility] Comment on above: Performed By: #### C BC ####[facility] Shwutzufir[address] [place], [place] [address]DrShaun Yañez LYMPH # 1.4 103/ul Normal 1.2-3.8 [facility] Comment on above: Performed By: #### C BC ####[facility] Raaksnooma0632 [place] [address]Dr. Nahed Yañez Lymphocytes/100 WBC (Bld) 10.4 % Critically low 20.5-60.0 [facility] Comment on above: Performed By: #### C BC ####[facility] Zogkizstkp[address] [place], [place] [address]Dr. Nahed Yañez MANUAL DIFF REQ NO Normal [facility] Comment on above: Performed By: #### C BC ####[facility] Kulbzdthen9159 [place] [address]Dr. Nahed Yañez MCH (RBC) [Entitic mass] 28.1 pg Normal 26.7-34.0 [facility] Comment on above: Performed By: #### C BC ####[facility] Gfyysnwsqr[address] [place], [place] [address]Dr. Nahed Yañez MCHC (RBC) [Mass/Vol] 31.8 g/dL Normal 29.9-35.2 [facility] Comment on above: Performed By: #### C BC ####[facility] Vcyndmquuz[address] [place], [place] [address]Dr. Nahed Yañez MCV (RBC) [Entitic vol] 88.4 fL Normal 81.0-99.0 [facility] Comment on above: Performed By: #### C BC ####[facility] Yqvqqleuah[address] [place], [place] [address]Dr. Nahed Yañez MONO # 0.8 103/ul Normal 0.3-0.8 [facility] Comment on above: Performed By: #### C BC ####[facility] Hvddthaagl[address] [place], [place] [address]Dr. Nahed Yañez Monocytes/100 WBC (Bld) 6.0 % Normal 1.7-12.0 [facility] Comment on above: Performed By: #### C BC ####[facility] Ryqhoswnqh[address] [place], [place] [address]Dr. Nahed Yañez NEUT # 10.9 103/ul Critically high 1.4-6.5 [facility] Comment on above: Performed By: #### C BC ####[facility] Qiywinhfgx04[address] [place] [address]Dr. Nahed Yañez Neutrophils/100 WBC (Bld) 83.0 % Critically high 43.0-75.0 [facility] [facility] [place] Comment on above: Performed By: #### C BC ####[facility] Dbdtrfxuzm[address] [place] [address]Dr. Nahed Yañez Platelet mean volume (Bld) [Entitic vol] 10.8 fL Normal 9.5-13.5 [facility] [place] Comment on above: Performed By: #### C BC ####[facility] Tmadswgcwj354[address] [place], [place] [address]Dr. Nahed Yañez PLT 402 103/ul Normal 150-450 [facility] [place] Comment on above: Performed By: #### C BC ####[facility] Parzmqhpne74[address] [place], [place] [address]Dr. Nahed Yañez RBC 5.02 106/ul Normal 4.20-5.40 [facility] [place] Comment on above: Performed By: #### C BC ####[facility] Rygpqgsjjc3816[address] [place], [place] [address]Dr. Nahed Yañez WBC 13.1 103/ul Critically high 4.0-11.0 [facility] Comment on above: Performed By: #### C BC ####[facility] Xtjqqwobmt67[address] [place], [place] [address]Dr. Nahed Otilio CTA CHEST WO W CONon 022 CTA CHEST WO W CON Normal [facility] CULTURE BLOODon 10-31-2021 Microscopic examination of blood, culture Culture Observations: NO GROWTH AT 5 DAYS. Normal [facility] Comment on above: Performed By: #### B LDCX2 ####[facility] Rfjcnlbmqe3[address] [place] [address]Dr. Nahed Otilio Microscopic examination of blood, culture Culture Observations: NO GROWTH AT 5 DAYS. Normal [facility] Comment on above: Performed By: #### B LDCX1 ####[facility] Iwjjasyjuc[address] [place] [address]Dr. Nahed Yañez Covid-19 PCR (CVDTB)on 10-13 SARS-CoV-2 (COVID-19) RNA MIRNA+probe Ql (Unsp spec) Not detected Normal NOT DETECTED [facility] Comment on above: Result Comment: [...] for this test is supported by the [place] of [employer] and Human Service's declaration that [...] be used). Performed By: #### C VDTB ####[facility] Akvndsiozw985[address] [place], [place] [address]Dr. Nahed Yañez ECHO LIMITED STUDYon 022 ECHO LIMITED STUDY Normal [facility] ER URINE PROFILEon 2 Bilirubin Ql (U) SMALL Abnormal NEGATIVE [facility] Comment on above: Performed By: #### YARELIS DOVE ####[facility] Aylcxgkhvy[address] [place] [address]Dr. Nahed Yañez Clarity (U) CLEAR Normal CLEAR [facility] Comment on above: Performed By: #### YARELIS DOVE ####[facility] Ddygmetoyx37[address] [place], [place] [address]Dr. Nahed Yañez Color (U) YELLOW Normal YELLOW [facility] Comment on above: Performed By: #### YARELIS DOVE ####[facility] Gnicqfnnyw34[address] [place], [place] [id number]. Nahed BORREGO A micrscopic examination will be performed if indicated. Normal [facility] Comment on above: Performed By: #### NUNU DOVERO ####[facility] Utjhokldzu[address] [place] [address]Dr. Nahed Yañez Glucose Ql (U) Negative Normal NEGATIVE [facility] Comment on above: Performed By: #### MYLA DOVEICRO ####[facility] Evkloxdqao1837 [place] [address]Dr. Nahed Yañez Hemoglobin Ql (U) TRACE-INTACT Abnormal NEGATIVE [facility] Comment on above: Performed By: #### NUNU DOVERO ####[facility] Jrltsysjvt7660[address] [place], [place] [address]Dr. Nahed Yañez Ketones Ql (U) 15 mg/dl Abnormal NEGATIVE [facility] Comment on above: Performed By: #### NUNU DOVERO ####[facility] Bctkqvtiax6685[address] [place], [place] [address]Dr. Nahed Yañez LEUKOCYTES TRACE Abnormal NEGATIVE [facility] [place] Comment on above: Performed By: #### NUNU DOVERO ####[facility] Wkorgfamql8611[address] [place], [place] [address]Dr. Nahed Yañez Nitrite Ql (U) Negative Normal NEGATIVE [facility] Comment on above: Performed By: #### MYLA DOVEICRO ####[facility] Cvkdfswapz1598 [place] [address]Dr. Nahed Yañez pH (U) 6.5 [pH] Normal 5-9 [facility] [place] Comment on above: Performed By: #### NUNU DOVERO ####[facility] Czlcdjurkk9801[address] [place], [place] [address]Dr. Nahed Yañez Protein (U) [Mass/Vol] 30 mg/dL Abnormal NEGAT JOSEPHINE/ TRACE [facility] [place] Comment on above: Performed By: #### MYLA DOVEICRO ####[facility] Gejobutdnr9933[address] [place], [place] [address]Dr. Nahed Yañez SPEC GRAVITY 1.025 Normal 1.005-<=1.02 5 [facility] Comment on above: Performed By: #### YARELIS DOVE ####[facility] Gollcwxmvk2433[address] [place], [place] [address]Dr. Nahed Yañez UR MICRO IND INDICATED Normal [facility] Comment on above: Performed By: #### YARELIS DOVE ####[facility] Tijkkibkru3475[address] [place], [place] [address]Dr. Nahed Yañez Urobilinogen Qn (U) 0.2 {Alem'U}/dL Normal 0.2 - 1. 0 [facility] [place] Comment on above: Performed By: #### YARELIS DOVE ####[facility] Bbhljiagxz7550[address] [place], [place] [address]Dr. Nahed Yañez INFLUENZA A AND B AGon 10-31 INFLUANEGH SEE BELOW Normal [facility] Comment on above: Result Comment: Nega tive for Flu A protein angiten. Infection due to Flu A cannot be ruled out. Flu A angiten in the sample may be below the detection limit of the test. Performed By: #### I NFLUAB ####[facility] Yzafvborvk75[address] [place], [place] [address]Dr. Nahed Yañez INFLUBNEGH SEE BELOW Normal [facility] Comment on above: Result Comment: Nega tive for Flu B protein antigen. Infection due to Flu B cannot be ruled out. Flu B antigen in the sample may be below the detection limit of the test. Performed By: #### I NFLUAB ####[facility] Jwfzryymju5765[address] [place], [place] [address]Dr. Nahed Yañez INFLUENZA A AG Negative Normal NEGATIVE SEE COMMENT [facility] Comment on above: Performed By: #### I NFLUAB ####[facility] Rrblhkfgew637[address] [place], [place] [address]Dr. Nahed Yañez INFLUENZA B AG Negative Normal NEGATIVE SEE COMMENT [facility] [place] Comment on above: Performed By: #### I NFLUAB ####[facility] Bpaznbnwyz6812[address] [place], [place] [address]Dr. Nahed Yañez INTERNAL CONTROLS Within Normal Limits Normal Wi thin Normal Limits [facility] Comment on above: Performed By: #### I NFLUAB ####[facility] Rvbqvwtnvs6030 [place] [address]Dr. Nahed Yañez LACTATE/LACTIC ACIDon 2021 Lactate [Moles/Vol] 1.3 mmol/L Normal 0.4-1.9 [facility] Comment on above: Performed By: #### L ACT ####[facility] Xdpwzvqxvc306[address] [place], [place] [address]Dr. Nahed Yañez PROF 14(COMP METB)on 022 Albumin [Mass/Vol] 4.3 g/dL Normal 3.4-5.0 [facility] Comment on above: Performed By: #### C MP ####[facility] Ctkajnjpkc6357 [place] [address]Dr. Nahed Yañez Albumin/Globulin [Mass ratio] 1.2 {ratio} Normal [facility] [place] Comment on above: Performed By: #### C MP ####[facility] Ckfiycougg757[address] [place], [place] [address]Dr. Nahed Yañez ALP [Catalytic activity/Vol] 77 U/L Normal 46-116 [facility] [place] Comment on above: Performed By: #### C MP ####[facility] Mmrhdacxar2070[address] [place], [place] [address]Dr. Nahed Yañez ALT [Catalytic activity/Vol] 25 U/L Normal 14-59 [facility] [place] Comment on above: Performed By: #### C MP ####[facility] Obgsiibwth36[address] [place] [address]Dr. Nahed Yañez Anion gap [Moles/Vol] 15.6 mmol/L Normal [facility] Comment on above: Performed By: #### C MP ####[facility] Wddsmigohd0104[address] [place], [place] [address]Dr. Nahed Yañez AST [Catalytic activity/Vol] 26 U/L Normal 15-37 [facility] [place] Comment on above: Performed By: #### C MP ####[facility] Aelexuachr713[address] [place], [place] [address]Dr. Nahed Yañez Bilirubin [Mass/Vol] 0.6 mg/dL Normal 0.2-1.0 [facility] [place] Comment on above: Performed By: #### C MP ####[facility] Nfpkfetpfl6585 [place] [address]Dr. Nahed Yañez Calcium [Mass/Vol] 10.0 mg/dL Normal 8.5-10.1 [facility] Comment on above: Performed By: #### C MP ####[facility] Ngxmhohyyv7725 [place] [address]Dr. Nahed Yañez Chloride [Moles/Vol] 101 mmol/L Normal 98-107 [facility] [place] Comment on above: Performed By: #### C MP ####[facility] Tiuuplantk9217[address] [place], [place] [address]Dr. Nahed Yañez CO2 [Moles/Vol] 29.0 mmol/L Normal 21.0-32.[address] [facility] Comment on above: Performed By: #### C MP ####[facility] Ueycaxxznn185[address] [place], [place] [address]Dr. Nahed Yañez Creatinine [Mass/Vol] 0.89 mg/dL Normal 0.55-1.02 [facility] [place] Comment on above: Performed By: #### C MP ####[facility] Dhybzqfcxy1597[address] [place], [place] [address]Dr. Nahed Yañez EGFR-AF MALDIVIAN >60 Normal >=60 [facility] Comment on above: Performed By: #### C MP ####[facility] Mlnvuvdzil6[address] [place] [address]Dr. Nahed Otilio EGFR-NON AF MALDIVIAN >60 Normal >=60 [facility] [place] Comment on above: Performed By: #### C MP ####[facility] Zijkpbjkwt20[address] [place] [address]Dr. Nahed Otilio Globulin (S) [Mass/Vol] 3.7 g/dL Normal [facility] [place] Comment on above: Performed By: #### C MP ####[facility] Fzmufqepik214[address] [place], [place] [address]Dr. Rosemarieashley Otilio Glucose [Mass/Vol] 182 mg/dL Critically high 74-106 [facility] Comment on above: Performed By: #### C MP ####[facility] Taocmqxute1060 [place] [address]Dr. Nahed Yañez Potassium [Moles/Vol] 3.6 mmol/L Normal 3.5-5.1 [facility] [place] Comment on above: Performed By: #### C MP ####[facility] Rxwyuibjdr3330[address] [place], [place] [address]Dr. Nahed Yañez Protein [Mass/Vol] 8.0 g/dL Normal 6.4-8.2 [facility] Comment on above: Performed By: #### C MP ####[facility] Jbrmyfjyqm7420[address] [place], [place] [address]Dr. Nahed Yañez Sodium [Moles/Vol] 142 mmol/L Normal 136-145 [facility] Comment on above: Performed By: #### C MP ####[facility] Xmqenxondo7209[address] [place], [place] [address]Dr. Nahed Yañez Urea nitrogen [Mass/Vol] 8.0 mg/dL Normal 7.0-18.0 [facility] [place] Comment on above: Performed By: #### C MP ####[facility] Kgxftecvxf309[address] [place], [place] [address]Dr. Nahed Yañez Urea nitrogen/Creatinine [Mass ratio] 9.0 mg/mg Normal [facility] [place] Comment on above: Performed By: #### C MP ####[facility] Wjzgxfccew895[address] [place], [place] [address]Dr. Nahed Yañez T4on 10-31-2021 T4 [Mass/Vol] 8.10 ug/dL Normal 4.80-13.90 [facility] Comment on above: Performed By: #### T 4, TSH, BNP, CMADM ####[facility] Hyqrpjidsh[address] [place], [place] [address]Dr. Nahed Yañez TSHon 10-31-2021 TSH 1.088 uIU/mL Normal 0.358-3.740 [facility] Comment on above: Performed By: #### T 4, TSH, BNP, CMADM ####[facility] Cjfjhmhwyy[address] [place] [address]Dr. Nahed Yañez URINE MICROSCOPIC ONLYon BACTERIA TRACE Abnormal NONE SEEN [facility] Comment on above: Performed By: #### YARELIS DOVE ####[facility] Yflfhmkgiw6475[address] [place], [place] [address]Dr. Nahed Yañez Bacteria identified Cx Nom (U) NOT INDICATED Normal [facility] Comment on above: Performed By: #### NUNU DOVERO ####[facility] Lkvmvklewm45[address] [place], [place] [address]Dr. Nahed Yañez CAST NONE SEEN Normal NONE SEEN [facility] Comment on above: Performed By: #### YARELIS DOVE ####[facility] Sazeucstzx364[address] [place], [place] [address]Dr. Nahed Yañez Crystals LM Nom (Urine sed) NONE SEEN Normal NONE SEEN [facility] Comment on above: Performed By: #### NUNU DOVERO ####[facility] Qmaqxmlafb495[address] [place], [place] [address]Dr. Nahed Yañez Epithelial cells LM Ql (Urine sed) MODERATE Abnormal NONE SEEN /RARE [facility] Comment on above: Performed By: #### NUNU DOVERO ####[facility] Onflswdvwn412[address] [place], [place] [address]Dr. Nahed Yañez MUCOUS SMALL Abnormal NONE SEEN [facility] Comment on above: Performed By: #### NUNU DOVERO ####[facility] Sndffimuld9[address] [place], [place] [address]Dr. Nahed Yañez RBC 2-5 Abnormal 0-2 [facility] Comment on above: Performed By: #### NUNU DOVERO ####[facility] Wmlxjsnvag5829[address] [place], [place] [address]Dr. Nahed Yañez WBC 2-5 Abnormal NONE SEEN [facility] Comment on above: Performed By: #### NUNU DOVERO ####[facility] Isaamisvip[address] [place], [place] [address]Dr. Nahed Yañez XR CHEST 2 Von 10-31-2021 XR CHEST 2 V Normal [facility] CULTURE URINEon 10-30-2021 CULTURE URINE Culture Observations : MODERATE GROWTH OF MIXED GENITAL MIGUEL. NO POTENTIAL PATHOGENS SEEN. Normal [facility] Comment on above: Performed By: #### U RCX ####[facility] [address]cxe[address] [place] [id number]. Nahed Yañez US JESSEE DOP LEG BILon 022 US JESSEE DOP LEG MOHAN Normal [facility] CARDIAC FRANCISCO ADMITon 022 CK [Catalytic activity/Vol] 16 U/L Critically low 26-192 [facility] Comment on above: Performed By: #### C RENZO, CMADM ####[facility] Rlqwjogfym05[address] [place] [address]Dr. Nahed Yañez CK.MB [Mass/Vol] 0.56 ng/mL Normal <=3.[address] [facility] Comment on above: Performed By: #### C RENZO, CMADM ####[facility] Yekfafrntn6368 [place] [address]Dr. Nahed Yañez HSTROP 44.3 pg/mL Normal 4.0-51.3 [facility] Comment on above: Result Comment: CUT- OFF POINTS HAVE BEEN ESTABLISHED BASED ON THE FOURTH UNIVERSAL DEFINITIONS OF MYOCARDIALINFARCTION. THE UPPER REFERENCE LIMIT (URL) OF TROPONIN, DEFINED THE 99TH PERCENTILE OFcTnI DISTRIBUTION IN A REFERENCE POPULATION, HAS BEEN CONFIRMED THE DECISION THRESHOLDFOR [place] DIAGNOSIS. Performed By: #### C RENZO, CMADM ####[facility] Jrommcskon40[address] [place] [address]Dr. Nahed Yañez ANDRE 42 ng/mL Normal 9-82 [facility] Comment on above: Performed By: #### C RENZO, CMADM ####[facility] Ynhzjfgtuz[address] [place] [phone]. Nahed Yañez CBC AUTO DIFFon 09-07-2021 BASO # 0.0 103/ul Normal 0.0-0.1 [facility] Comment on above: Performed By: #### C BC ####[facility] Ikgrswzoxo6343 [place] [phone]. Nahed Yañez Basophils/100 WBC (Bld) 0.4 % Normal 0.2-2.0 [facility] [place] Comment on above: Performed By: #### C BC ####[facility] Qgjmvovizx0105 [place] [address]Dr. Nahed Yañez EO # 0.2 103/ul Normal 0.0-0.7 [facility] [place] Comment on above: Performed By: #### C BC ####[facility] Amandwqima744[address] [place], [place] [address]Dr. Nahed Yañez Eosinophils/100 WBC (Bld) 2.4 % Normal 0.9-7.0 [facility] [place] Comment on above: Performed By: #### C BC ####[facility] Wsvuxmbxgc722[address] [place], [place] [address]Dr. Nahed Yañez Erythrocyte distribution width (RBC) [Ratio] 15.1 % Critically high 11.0-15.0 [facility] [place] Comment on above: Performed By: #### C BC ####[facility] Gwkebsgmpx068[address] [place], [place] [address]DrShaun Yañez Hematocrit (Bld) [Volume fraction] 42.6 % Normal 36.0-48.0 [facility] [place] Comment on above: Performed By: #### C BC ####[facility] Uibmvnzrql8470[address] [place], [place] [address]Dr. Nahed Yañez Hemoglobin (Bld) [Mass/Vol] 13.4 g/dL Normal 12.0-16.0 [facility] Comment on above: Performed By: #### C BC ####[facility] Gsooajjcxf3435[address] [place], [place] [address]DrShaun Yañez IG # 0.33 10e3/ul Critically high 0.00-0.03 [facility] Comment on above: Performed By: #### C BC ####[facility] Kjqqotpyzk8935[address] [place], [place] [address]Dr. Nahed Yañez IG % 3.9 % Critically high 0.0-0.5 [facility] Comment on above: Performed By: #### C BC ####[facility] Twipreivty06[address] [place], [place] [address]Dr. Nahed Yañez LYMPH # 2.6 103/ul Normal 1.2-3.8 [facility] Comment on above: Performed By: #### C BC ####[facility] Ursnzhxtti6901 [place] [address]Dr. Nahed Yañez Lymphocytes/100 WBC (Bld) 30.3 % Normal 20.5-60.0 [facility] [place] Comment on above: Performed By: #### C BC ####[facility] Wfoicnfxbc9417[address] [place], [place] [address]Dr. Nahed Yañez MANUAL DIFF REQ NO Normal [facility] Comment on above: Performed By: #### C BC ####[facility] Vrpuhaabkx45[address] [place], [place] [address]Dr. Nahed Yañez MCH (RBC) [Entitic mass] 28.6 pg Normal 26.7-34.0 [facility] Comment on above: Performed By: #### C BC ####[facility] Lvnnhhbbww932[address] [place], [place] [address]Dr. Nahed Yañez MCHC (RBC) [Mass/Vol] 31.5 g/dL Normal 29.9-35.2 [facility] Comment on above: Performed By: #### C BC ####[facility] Scrccakcnd963[address] [place], [place] [address]Dr. Nahed Yañez MCV (RBC) [Entitic vol] 90.8 fL Normal 81.0-99.0 [facility] Comment on above: Performed By: #### C BC ####[facility] Abdzauisjs2112[address] [place], [place] [address]Dr. Nahed Yañez MONO # 0.7 103/ul Normal 0.3-0.8 [facility] Comment on above: Performed By: #### C BC ####[facility] Twjzvrpbzs283[address] [place], [place] [address]Dr. Nahed Yañez Monocytes/100 WBC (Bld) 8.0 % Normal 1.7-12.0 [facility] Comment on above: Performed By: #### C BC ####[facility] Qsyzhfvctr918[address] [place], [place] [address]Dr. Nahed Yañez NEUT # 4.7 103/ul Normal 1.4-6.5 [facility] [place] Comment on above: Performed By: #### C BC ####[facility] Vankpczbll[address]13 [place] [address]DrShaun Yañez Neutrophils/100 WBC (Bld) 55.0 % Normal 43.0-75.0 [facility] [place] Comment on above: Performed By: #### C BC ####[facility] Ipdnwnjvud8735 [place] [address]DrShaun Yañez Platelet mean volume (Bld) [Entitic vol] 8.9 fL Critically low 9.5-13.5 [facility] [place] Comment on above: Performed By: #### C BC ####[facility] Gjzwdsgxci36[address] [place], [place] [address]DrShaun Yañez PLT 270 103/ul Normal 150-450 [facility] [place] Comment on above: Performed By: #### C BC ####[facility] Ryyeapytvt8477[address] [place], [place] [address]DrShaun Yañez RBC 4.69 106/ul Normal 4.20-5.40 [facility] [place] Comment on above: Performed By: #### C BC ####[facility] Jdscwpsphs[address] [place], [place] [address]DrShaun Yañez WBC 8.5 103/ul Normal 4.0-11.0 [facility] [place] Comment on above: Performed By: #### C BC ####[facility] Axyndtuiqo10[address] [place], [place] [address]DrShaun Yañez PROF 14(COMP METB)on 022 Albumin [Mass/Vol] 2.7 g/dL Critically low 3.4-5.0 [facility] Comment on above: Performed By: #### ERICK Whyte MP ####[facility] Yjvkwtjbki7880[address] [place], [place] [address]DrShaun Yañez Albumin/Globulin [Mass ratio] 0.8 {ratio} Normal [facility] [place] Comment on above: Performed By: #### C ERICK MULLER ####[facility] Ftsjkpomoe640[address] [place], [place] [address]DrShaun Yañez ALP [Catalytic activity/Vol] 65 U/L Normal 46-116 [facility] Comment on above: Performed By: #### C RENZO, ERICK ####[facility] Tlvdwuwdre5428 [place] [address]Dr. Nahed Yañez ALT [Catalytic activity/Vol] 27 U/L Normal 14-59 [facility] [place] Comment on above: Performed By: #### C RENZO, ERICK ####[facility] Cgvdombbzg0842 [place] [address]Dr. Nahed Yañez Anion gap [Moles/Vol] 10.3 mmol/L Normal [facility] Comment on above: Performed By: #### C RENZO, ERICK ####[facility] Cnvgojsvov2083 [place] [address]Dr. Nahed Yañez AST [Catalytic activity/Vol] 11 U/L Critically low 15-37 [facility] [place] Comment on above: Performed By: #### C RENZO, ERICK ####[facility] Rieqzukzkb[address] [place], [place] [address]Dr. Nahed Yañez Bilirubin [Mass/Vol] 0.3 mg/dL Normal 0.2-1.0 [facility] [place] Comment on above: Performed By: #### C RENZO, ERICK ####[facility] Pebgpneocc8745 [place] [address]Dr. Nahed Yañez Calcium [Mass/Vol] 8.1 mg/dL Critically low 8.5-10.1 [facility] Comment on above: Performed By: #### C RENZO, ERICK ####[facility] Yykailipzg9981 [place] [address]Dr. Nahed Yañez Chloride [Moles/Vol] 98 mmol/L Normal 98-107 [facility] [place] Comment on above: Performed By: #### C RENZO, ERICK ####[facility] Vjdmicmpia6080 [place] [address]Dr. Nahed Yañez CO2 [Moles/Vol] 32.5 mmol/L Critically high 21.0-32.0 [facility] [place] Comment on above: Performed By: #### C RENZO, ERICK ####[facility] Rinhocysbh6836 [place] [phone]. Nahed Yañez Creatinine [Mass/Vol] 0.94 mg/dL Normal 0.55-1.02 [facility] [place] Comment on above: Performed By: #### C RENZO, CMADM ####[facility] Chcyznpzak85[address] [place] [phone]. Nahed Yañez EGFR-AF MALDIVIAN >60 Normal >=60 [facility] Comment on above: Performed By: #### C RENZO, CMADM ####[facility] Hszstbtdid7902 [place] [phone]. Nahed Yañez EGFR-NON AF MALDIVIAN >60 Normal >=60 [facility] [place] Comment on above: Performed By: #### C RENZO, CMAJOSE ####[facility] Bnjdtkgyrm4790 [place] [address]Dr. Nahed Yañez Globulin (S) [Mass/Vol] 3.2 g/dL Normal [facility] [place] Comment on above: Performed By: #### C RENZO, CMADM ####[facility] [address] [place] [address]Dr. Nahed Yañez Glucose [Mass/Vol] 123 mg/dL Critically high 74-106 [facility] Comment on above: Performed By: #### C RENZO, CMADM ####[facility] [address] [place] [address] [id number]. Nahed Yañez Potassium [Moles/Vol] 3.8 mmol/L Normal 3.5-5.1 [facility] Comment on above: Performed By: #### C RENZO, CMADM ####[facility] [address] [place] [address] [id number]. Nahed Yañez Protein [Mass/Vol] 5.9 g/dL Critically low 6.1-8.2 [facility] Comment on above: Performed By: #### C RENZO, CMADM ####[facility] Tsxlxdnfvv[address] [place] [id number]. Nahed Yañez Sodium [Moles/Vol] 137 mmol/L Normal 136-145 [facility] Comment on above: Performed By: #### C RENZO, CMADM ####[facility] [address] [address]Dr. Nahed Yañez Urea nitrogen [Mass/Vol] 20.0 mg/dL Critically high 7.0-18.0 [facility] Comment on above: Performed By: #### C MP, CMADM ####[facility] Ufpqoeoz[address] [place], [place] [address]Dr. Nahed Yañez Urea nitrogen/Creatinine [Mass ratio] 21.3 mg/mg Normal [facility] Comment on above: Performed By: #### C MP, CMADM ####[facility] Bfuuhtgg[address] [place], [place] [address]Dr. Nahed Yañez BNPon 09-06-2021 Natriuretic peptide B (Bld) [Mass/Vol] 923.0 pg/mL Critically high <=900.0 [facility] Comment on above: Performed By: #### B MP, BNP, HSTROPN ####[facility] Bxescftpvh[address] [place], [place] [address]Dr. Nahed Yañez CBC AUTO DIFFon 09-06-2021 BASO # 0.1 103/ul Normal 0.0-0.1 [facility] Comment on above: Performed By: #### C BC ####[facility] Rbzuvnmu[address] [place], [place] [address]Dr. Rosemarieashley Yañez Basophils/100 WBC (Bld) 0.6 % Normal 0.2-2.0 [facility] Comment on above: Performed By: #### C BC ####[facility] Dscl[address]qshy[address] [place], [place] [address]Dr. Nahed Otilio EO # 0.3 103/ul Normal 0.0-0.7 [facility] Comment on above: Performed By: #### C BC ####[facility] Qiclxsbpbk[address] [place], [place] [address]Dr. Nahed Otilio Eosinophils/100 WBC (Bld) 3.0 % Normal 0.9-7.0 [facility] Comment on above: Performed By: #### C BC ####[facility] Crracmbmky[address] [place], [place] [address]Dr. Nahed Yañez Erythrocyte distribution width (RBC) [Ratio] 15.0 % Normal 11.0-15.0 [facility] Comment on above: Performed By: #### C BC ####[facility] [address] [address]Dr. Nahed Yañez Hematocrit (Bld) [Volume fraction] 48.1 % Critically high 36.0-48.0 [facility] Comment on above: Performed By: #### C BC ####[facility] Pcilwwhcke[address] [place], [place] [address]Dr. Nahed Yañez Hemoglobin (Bld) [Mass/Vol] 15.5 g/dL Normal 12.0-16.0 [facility] Comment on above: Result Comment: delt a check called to Manisha WALKER Performed By: #### C BC ####[facility] Wwigpezuuk[address] [place], [place] [address]Dr. Nahed Yañez IG # 0.46 10e3/ul Critically high 0.00-0.03 [facility] Comment on above: Performed By: #### C BC ####[facility] Sywzyssozu[address] [place], [place] [address]Dr. Nahed Yañez IG % 4.2 % Critically high 0.0-0.5 [facility] Comment on above: Performed By: #### C BC ####[facility] Kpjisakegu[address] [place], [place] [address]Dr. Nahed Yañez LYMPH # 2.2 103/ul Normal 1.2-3.8 [facility] Comment on above: Performed By: #### C BC ####[facility] Uceinrrdgq65[address] [place], [place] [address]Dr. Nahed Yañez Lymphocytes/100 WBC (Bld) 20.6 % Normal 20.5-60.0 [facility] Comment on above: Performed By: #### C BC ####[facility] Rmuciztlru[address] [place], [place] [address]Dr. Nahed Yañez MANUAL DIFF REQ NO Normal [facility] Comment on above: Performed By: #### C BC ####[facility] [address] [place] [id number]. Nahed Yañez MCH (RBC) [Entitic mass] 28.2 pg Normal 26.7-34.0 [facility] Comment on above: Performed By: #### C BC ####[facility] [address]tl[address] [address]Dr. Nahed Yañez MCHC (RBC) [Mass/Vol] 32.2 g/dL Normal 29.9-35.2 [facility] Comment on above: Performed By: #### C BC ####[facility] Algfecnqyx[address] [place], [place] [address]Dr. Nahed Yañez MCV (RBC) [Entitic vol] 87.5 fL Normal 81.0-99.0 [facility] Comment on above: Performed By: #### C BC ####[facility] Gtszyqyggk[address] [place], [place] [address]Dr. Nahed Yañez MONO # 0.7 103/ul Normal 0.3-0.8 [facility] Comment on above: Performed By: #### C BC ####[facility] Uhdvbmficy[address] [place], [place] [address]Dr. Nahed Otilio Monocytes/100 WBC (Bld) 6.4 % Normal 1.7-12.0 [facility] Comment on above: Performed By: #### C BC ####[facility] H[address]ifn[address]je[address] [place], [place] [address]Dr. Nahed Yañez NEUT # 7.1 103/ul Critically high 1.4-6.5 [facility] Comment on above: Performed By: #### C BC ####[facility] Atlyljoaws[address] [place], [place] [address]Dr. Nahed Otilio Neutrophils/100 WBC (Bld) 65.2 % Normal 43.0-75.0 [facility] Comment on above: Performed By: #### C BC ####[facility] Ppsiskrxgv[address] [place], [place] [address]Dr. Nahed Yañez Platelet mean volume (Bld) [Entitic vol] 8.9 fL Critically low 9.5-13.5 [facility] Comment on above: Performed By: #### C BC ####[facility] [address] [place], [place] [address]Kl. Nahed Yañez PLT 390 103/ul Normal 150-450 [facility] Comment on above: Performed By: #### C BC ####[facility] [address] [place], [place] [address]Pn. Nahed Yañez RBC 5.50 106/ul Critically high 4.20-5.[address] [facility] Comment on above: Performed By: #### C BC ####[facility] [address] [place] [id number]. Nahed Yañez WBC 10.8 103/ul Normal 4.0-11.0 [facility] Comment on above: Performed By: #### C BC ####[facility] [address]jm[address] [place] [phone]. Nahed Yañez CULTURE BLOODon 09-06-2021 Microscopic examination of blood, culture Culture Observations: NO GROWTH AT 5 DAYS. Isolate 1 BC_BA_NA Normal [facility] Comment on above: Performed By: #### B LDCX2 ####[facility] [address] [place] [phone]. Nahed Yañez Microscopic examination of blood, culture Culture Observations: NO GROWTH AT 5 DAYS. Normal [facility] Comment on above: Performed By: #### B LDCX1 ####[facility] [address] [place] [phone]. Nahed Yañez Covid-19 PCR (CVDTB)on 08-13 SARS-CoV-2 (COVID-19) RNA MIRNA+probe Ql (Unsp spec) Not detected Normal NOT DETECTED [facility] Comment on above: Result Comment: [...] for this test is supported by the [place] of [employer] and Human Service's declaration that [...] be used). Performed By: #### C VDTBH ####[facility] Kgrkoqhauq[address] [place], [place] [address]Dr. Nahed Yañez LACTATE/LACTIC ACIDon 2021 Lactate [Moles/Vol] 0.1 mmol/L Critically low 0.4-2.0 [facility] Comment on above: Performed By: #### L ACT ####[facility] Kfhtunqw[address] [place], [place] [address]Dr. Nahed Yañez Lactate [Moles/Vol] 1.5 mmol/L Normal 0.4-2.0 [facility] Comment on above: Performed By: #### L ACT ####[facility] Rfcjimssms[address] [place], [place] [address]Dr. Nahed Yañez POINT OF CARE GLUCOSEon 08-13 Glucose [Mass/Vol] 201 mg/dL Critically high 74-106 [facility] Comment on above: Performed By: #### P OCGLUC ####[facility] Kawyzsjqvj332[address] [place], [place] [address]Dr. Nahed Yañez PROF CHEM 8 (BAS METB)on Anion gap [Moles/Vol] 14.8 mmol/L Normal [facility] Comment on above: Performed By: #### B MP, BNP, HSTROPN ####[facility] Adkmjmsroo[address] [place], [place] [address]Dr. Nahed Yañez Calcium [Mass/Vol] 8.8 mg/dL Normal 8.5-10.1 [facility] Comment on above: Performed By: #### B MP, BNP, HSTROPN ####[facility] Qzlanedr[address] [place], [place] [address]Dr. Nahed Yañez Chloride [Moles/Vol] 95 mmol/L Critically low 98-107 [facility] Comment on above: Performed By: #### B MP, BNP, HSTROPN ####[facility] [address] [address]Dr. Nahed Yañez CO2 [Moles/Vol] 28.7 mmol/L Normal 21.0-32.[address] [facility] Comment on above: Performed By: #### B MP, BNP, HSTROPN ####[facility] [address] [place] [address]Dr. Nahed Yañez Creatinine [Mass/Vol] 0.98 mg/dL Normal 0.55-1.02 [facility] Comment on above: Performed By: #### B MP, BNP, HSTROPN ####[facility] Twrwntrrho[address] [place], [place] [address]Dr. Nahed Yañez EGFR-AF MALDIVIAN >60 Normal >=[address] [facility] Comment on above: Performed By: #### B MP, BNP, HSTROPN ####[facility] Ebebrmpfgi[address] [place], [place] [address]Dr. Nahed Yañez EGFR-NON AF MALDIVIAN 58 mL/min/1.73m2 Critically low >=60 [facility] Comment on above: Performed By: #### B MP, BNP, HSTROPN ####[facility] [address] [place] [address]Dr. Nahed Yañez Glucose [Mass/Vol] 150 mg/dL Critically high 74-106 [facility] Comment on above: Performed By: #### B MP, BNP, HSTROPN ####[facility] [address]be[address] [place] [address]Dr. Rosemarieashley Yañez Potassium [Moles/Vol] 4.5 mmol/L Normal 3.5-5.1 [facility] Comment on above: Performed By: #### B MP, BNP, HSTROPN ####[facility] [address]vt[address] [place] [address]Dr. Nahed Yañez Sodium [Moles/Vol] 134 mmol/L Critically low 136-145 [facility] Comment on above: Performed By: #### B MP, BNP, HSTROPN ####[facility] [address] [place] [phone]. Nahed Yañez Urea nitrogen [Mass/Vol] 19.0 mg/dL Critically high 7.0-18.0 [facility] Comment on above: Performed By: #### B MP, BNP, HSTROPN ####[facility] [address] [address]Dr. Nahed Yañez Urea nitrogen/Creatinine [Mass ratio] 19.4 mg/mg Normal [facility] Comment on above: Performed By: #### B MP, BNP, HSTROPN ####[facility] [address] [place] [address]Dr. Nahed Yañez TROPONIN, HIGH SENSITIVITYon 09-06-2021 HSTROP 50.4 pg/mL Normal 4.0-51.3 [facility] Comment on above: Result Comment: CUT- OFF POINTS HAVE BEEN ESTABLISHED BASED ON THE FOURTH UNIVERSAL DEFINITIONS OF MYOCARDIALINFARCTION. THE UPPER REFERENCE LIMIT (URL) OF TROPONIN, DEFINED THE 99TH PERCENTILE OFcTnI DISTRIBUTION IN A REFERENCE POPULATION, HAS BEEN CONFIRMED THE DECISION THRESHOLDFOR [place] DIAGNOSIS. Performed By: #### B MP, BNP, HSTROPN ####[facility] [address] [place] [address]Dr. Nahed Yañez XR CHEST 1 Von 09-06-2021 XR CHEST 1 V Normal [facility] CBC with Diffon 09-08-2018 Abs. Basophil 0.03 k/uL Normal 0.00-0.20 [facility] Comment on above: Performed By: #### L IP, CMPX, CDP #### [facility] [address] [place] [address] Window Trimmer: Nino Farias MD Abs.Imm.Granulocyte 0.05 k/uL Normal 0.00-0.30 [facility] Comment on above: Performed By: #### L IP, CMPX, CDP #### [facility] [address] [place] [address] Window Trimmer: Nino Farias MD Abs.Neutrophil (Seg) 11.30 k/uL High 1.50-8.10 [facility] Comment on above: Performed By: #### L IP, CMPX, CDP #### [facility] [address] [place], [place] 9[address] Window Trimmer: Nino Farias MD Basophils/100 WBC (Bld) 0 % Normal 0-2 [facility] Comment on above: Performed By: #### L IP, CMPX, CDP #### [facility] [address] [place], [place] [address]483 Window Trimmer: Nino Farias MD Eosinophils #/vol (Bld) 0.17 10*3/uL Normal 0.00-0.44 [facility] Comment on above: Performed By: #### L IP, CMPX, CDP #### [address] [place], [facility]83 Window Trimmer: Nino Farias MD Eosinophils/100 WBC (Bld) 1 % Normal 1-4 [facility] Comment on above: Performed By: #### L IP, CMPX, CDP #### [address] [place], [facility]83 Window Trimmer: Nino Farias MD Erythrocyte distribution width Ratio (RBC) 12.5 % Normal 11.8-14.4 [facility] Comment on above: Performed By: #### L IP, CMPX, CDP #### [address] [place], [place] 737[address] Window Trimmer: Nino Farias MD Hematocrit Volume Fraction (Bld) 36.8 % Normal 36.3-47.1 [facility] Comment on above: Performed By: #### L IP, CMPX, CDP #### [address] [place], [place] [address] Window Trimmer: Nino Farias MD Hemoglobin mass conc (Bld) 11.6 g/dL Low 11.9-15.1 [facility] Comment on above: Performed By: #### L IP, CMPX, CDP #### [facility] [address] [place] [address] Dr. [place], [facility]83 Window Trimmer: Nino Farias MD Immature granulocytes #/vol (Bld) 0 % Normal 0 [facility] Comment on above: Performed By: #### L IP, CMPX, CDP #### [facility] [address] [place], [place] [address] Window Trimmer: Nino Farias MD Lymphocytes #/vol (Bld) 2.56 10*3/uL Normal 1.10-3.70 [facility] Comment on above: Performed By: #### L IP, CMPX, CDP #### [address] [place] [address] Window Trimmer: Nino Farias MD Lymphocytes/100 WBC (Bld) 18 % Low 24-43 [facility] Comment on above: Performed By: #### L IP, CMPX, CDP #### [address] [place], [place] [address] Window Trimmer: Nino Farias MD MCH Entitic mass (RBC) 30.6 pg Normal 25.2-33.5 [facility] Comment on above: Performed By: #### L IP, CMPX, CDP #### [address] [place], [facility]83 Window Trimmer: Nino Farias MD MCHC mass conc (RBC) 31.5 g/dL Normal 28.4-34.8 [facility] Comment on above: Performed By: #### L IP, CMPX, CDP #### [address] [place], [facility]83 Window Trimmer: Nino Farias MD MCV Entitic volume (RBC) 97.1 fL Normal 82.6-102.9 [facility] Comment on above: Performed By: #### L IP, CMPX, CDP #### [facility] [address] [place], [place] [address] Window Trimmer: Nino Farias MD Monocytes #/vol (Bld) 0.55 10*3/uL Normal 0.10-1.20 M [facility] Comment on above: Performed By: #### L IP, CMPX, CDP #### [facility] [address] [place], [place] 7[address] Window Trimmer: Nino Farias MD Monocytes/100 WBC (Bld) 4 % Normal 3-12 [facility] Comment on above: Performed By: #### L IP, CMPX, CDP #### [address] [place], [facility]83 Window Trimmer: Nino Farias MD Neutrophil (Seg) 77 % High 36-65 [facility] Comment on above: Performed By: #### L IP, CMPX, CDP #### [address] [place], [facility]83 Window Trimmer: Nino Farias MD NRBC Automated 0.0 per 100 WBC Normal 0.0 [facility] Comment on above: Performed By: #### L IP, CMPX, CDP #### [address] [place], [place] 258[address]83 Window Trimmer: Nino Farias MD Platelet mean volume Entitic volume (Bld) 9.2 fL Normal 8.1-13.5 [facility] Comment on above: Performed By: #### L IP, CMPX, CDP #### [address] [place], [place] 3222183 Window Trimmer: Nino Farias MD Platelets #/vol (Bld) 305 10*3/uL Normal 138-453 [facility] Comment on above: Performed By: #### L IP, CMPX, CDP #### [facility] [address] [place] [address] Window Trimmer: Nino Farias MD RBC #/vol (Bld) 3.79 10*6/uL Low 3.95-5.11 [facility] Comment on above: Performed By: #### L IP, CMPX, CDP #### [facility] [address] [place], [place] 098[address]83 Window Trimmer: Nino Farias MD WBC #/vol (Bld) 14.7 10*3/uL High 3.5-11.3 [facility] Comment on above: Performed By: #### L IP, CMPX, CDP #### [address] [place], [place] [address] Window Trimmer: Nino Farias MD Auto Diff Performed NOT REPORTED Normal [facility] Comment on above: Performed By: #### L IP, CMPX, CDP #### [facility] [address] [place] [address] Dr. [place], [place] 9915383 Window Trimmer: Nino Farias MD Platelets #/vol (Bld) NOT REPORTED Normal [facility] Comment on above: Performed By: #### L IP, CMPX, CDP #### [address] [place], [place] 87[address]683 Window Trimmer: Nino Farias MD RBC morphology finding Nom (Bld) NOT REPORTED Normal [facility] Comment on above: Performed By: #### L IP, CMPX, CDP #### [facility] [address] [place] [address] Dr. [place], [place] 97[address]83 Window Trimmer: Nino Farias MD WBC Morphology NOT REPORTED Normal [facility] Comment on above: Performed By: #### L IP, CMPX, CDP #### [facility] [address] [place], [place] 3475783 Window Trimmer: Nino Farias MD Comp Metabolic Pr/rfx MGon 0 09-08-2018 ALT enzyme act/vol U/L Low 5-33 [facility] Comment on above: Performed By: #### L IP, CMPX, CDP #### [facility] [address] [place] [address] Window Trimmer: Nino Farias MD (cont.) [facility] Comment on above: Result Comment: Aver age GFR for 50-59 years old: 93 mL/min/1.73sq m Chronic Kidney Disease: <60 mL/min/1.73sq m Kidney failure: <15 mL/min/1.73sq m eGFR calculated using average adult body mass. Additional eGFR calculator available at: http://www.[employer]Tap/multiple_crcl_2011.htm Performed By: #### L IP, CMPX, CDP #### [facility] [address] [place] [address] Window Trimmer: Nino Farias MD Albumin mass conc 4.0 g/dL Normal 3.5-5.2 [facility] Comment on above: Performed By: #### L IP, CMPX, CDP #### [facility] [address] [place] [address] Window Trimmer: Nino Farias MD Albumin/Globulin mass ratio 1.3 {ratio} Normal 1.0-2.5 [facility] Comment on above: Performed By: #### L IP, CMPX, CDP #### [facility] [address] [place] [address] Window Trimmer: Nino Farias MD Alkaline Phos 58 U/L Normal 35-104 [facility] Comment on above: Performed By: #### L IP, CMPX, CDP #### [facility] [address] [place] [address] Window Trimmer: Nino Farias MD Anion gap molar conc 8 mmol/L Low 9-17 [facility] Comment on above: Performed By: #### L IP, CMPX, CDP #### [facility] [address] [place] [address] Window Trimmer: Nino Farias MD AST enzyme act/vol 20 U/L Normal <32 [facility] Comment on above: Performed By: #### L IP, CMPX, CDP #### [facility] [address] [place] [address] Window Trimmer: Nino Farias MD Bilirubin Ql (U) 0.17 mg/dL Low 0.3-1.2 [facility] Comment on above: Performed By: #### L IP, CMPX, CDP #### [facility] [address] [place] [address] Window Trimmer: Nino Farias MD BUN/CRE Ratio 15 Normal 9-20 [facility] Comment on above: Performed By: #### L IP, CMPX, CDP #### [facility] [address] [place] [address] Window Trimmer: Nino Farias MD Calcium mass conc 9.3 mg/dL Normal 8.6-10.4 [facility] Comment on above: Performed By: #### L IP, CMPX, CDP #### [facility] [address] [place] [address] Window Trimmer: Nino Farias MD Chloride molar conc 97 mmol/L Low 98-107 [facility] Comment on above: Performed By: #### L IP, CMPX, CDP #### [facility] [address] [place] [address] Window Trimmer: Nino Farias MD CO2 molar conc 31 mmol/L Normal 20-31 [facility] Comment on above: Performed By: #### L IP, CMPX, CDP #### [facility] [address] [place] [address] Window Trimmer: Nino Farias MD Creatinine mass conc 1.22 mg/dL High 0.50-0.90 [facility] Comment on above: Performed By: #### L IP, CMPX, CDP #### [facility] [address] [place], [place] 0[address] Window Trimmer: Nino Farias MD GFR, Amer 55 mL/min Low >60 [facility] Comment on above: Performed By: #### L IP, CMPX, CDP #### [facility] [address] [place], [place] 7413383 Window Trimmer: Nino Farias MD GFR,non Amer 45 mL/min Low >60 [facility] Comment on above: Performed By: #### L IP, CMPX, CDP #### [facility] [address] [place] [address] Window Trimmer: Nino Farias MD Glucose mass conc 93 mg/dL Normal 70-99 [facility] Comment on above: Performed By: #### L IP, CMPX, CDP #### [facility] [address] [place], [place] 8535683 Window Trimmer: Nino Farias MD Potassium molar conc 4.5 mmol/L Normal 3.7-5.3 [facility] Comment on above: Performed By: #### L IP, CMPX, CDP #### [facility] [address] [place], [place] 5249383 Window Trimmer: Nino Farias MD Protein mass conc 7.0 g/dL Normal 6.4-8.3 [facility] Comment on above: Performed By: #### L IP, CMPX, CDP #### [facility] [address] [place], [place] 2935183 Window Trimmer: Nino Farias MD Sodium molar conc 136 mmol/L Normal 135-144 [facility] Comment on above: Performed By: #### L IP, CMPX, CDP #### [facility] [address] [place] [address] Window Trimmer: Nino Farias MD Staging: Normal [facility] Comment on above: Result Comment: Stag e 1: Some kidney damage normal GFR Stage 2: Mild kidney damage GFR 60-89 Stage 3: Moderate kidney damage GFR 30-59 Stage 4: Severe kidney damage GFR 15-29 Stage 5: Severe kidney damage GFR <15 ESRD - chronic treatment by dialysis or transplant Performed By: #### L IP, CMPX, CDP #### [facility] [address] [place] [address] Window Trimmer: Nino Farias MD Urea nitrogen mass conc 18 mg/dL Normal 6-20 [facility] Comment on above: Performed By: #### L IP, CMPX, CDP #### [facility] [address] [place] [address] Window Trimmer: Nino Farias MD Lactic Acidon 09-08-2018 Lactate molar conc 1.2 mmol/L Normal 0.5-2.2 [facility] Comment on above: Performed By: #### L AC #### [facility] [address] [place] [address] Window Trimmer: Nino Farias MD Lipaseon 09-08-2018 Lipase enzyme act/vol 27 U/L Normal 13-60 [facility] Comment on above: Performed By: #### L IP, CMPX, CDP #### [facility] [address] [place] [address] Window Trimmer: Nino Farias MD UA w/Reflex Cultureon 2018 Acetoacetic Acid,Ur Negative Normal NEG [facility] Comment on above: Performed By: #### U MICAO, UAX #### [facility] [address] [place] [address] Window Trimmer: Nino Farias MD Bilirubin.direct mass conc SMALL Abnormal NEG [facility] Comment on above: Performed By: #### U MICAO, UAX #### [facility] [address] [place] [address] Window Trimmer: Nino Farias MD Color Nom (U) YELLOW Normal YEL [facility] Comment on above: Performed By: #### U MICAO, UAX #### [facility] [address] [place], [place] [id number] Window Trimmer: Nino Farias MD Glucose mass conc Negative Normal [facility] Comment on above: Performed By: #### U MICAO, UAX #### [facility] [address] [place] [address] Window Trimmer: Nino Farias MD Hemoglobin mass conc (Bld) Negative Normal [facility] Comment on above: Performed By: #### U MICAO, UAX #### [facility] [address] [place] [address] Window Trimmer: Nino Farias MD Leuckocyte Esterase Negative Normal [facility] Comment on above: Performed By: #### U MICAO, UAX #### [facility] [address] [place] [address] Window Trimmer: Nino Farias MD Nitrite,Ur Negative Normal [facility] Comment on above: Performed By: #### U MICAO, UAX #### [facility] [address] [place] [address] Window Trimmer: Nino Farias MD PH,Ur 5.5 Normal 5.0-9.0 [facility] Comment on above: Performed By: #### U MICAO, UAX #### [facility] [address] [place] [address] Window Trimmer: Nino Farias MD Protein mass conc Negative Normal [facility] Comment on above: Performed By: #### U MICAO, UAX #### [facility] [address] [place] [address] Window Trimmer: Nino Farias MD Spec. Malcolm,Ur 1.010 Normal 1.010-1.020 [facility] Comment on above: Performed By: #### U MICAO, UAX #### [facility] [address] [place], [place] [id number] Window Trimmer: Nino Farias MD Turbidity CLEAR Normal CLEAR [facility] Comment on above: Performed By: #### U MICAO, UAX #### [facility] [address] [place], [place] [id number] Window Trimmer: Nino Farias MD Urobilinogen,Ur Normal Normal NORM [facility] Comment on above: Performed By: #### U MICAO, UAX #### [facility] [address] [place], [place] [id number] Window Trimmer: Nino Farias MD Comment NOT REPORTED Normal [facility] Comment on above: Performed By: #### U MICAO, UAX #### [facility] [address] [place], [facility] Window Trimmer: Nino Farias MD Urinalysis,Microon 9 ----- Normal [facility] Comment on above: Performed By: #### U MICAO, UAX #### [facility] [address] [place], [place] [id number] Window Trimmer: Nino Farias MD Bacteria LM.HPF #/area (Urine sed) TRACE Abnormal NONE [facility] Comment on above: Performed By: #### U MICAO, UAX #### [facility] [address] [place], [place] [id number] Window Trimmer: Nino Farias MD Epithelial cells LM.HPF #/area (Urine sed) None Normal 0-25 [facility] Comment on above: Performed By: #### U MICAO, UAX #### [facility] [address] [place], [place] [id number] Window Trimmer: Nino Farias MD RBC #/vol (U) None Normal 0-2 [facility] Comment on above: Performed By: #### U MICAO, UAX #### [facility] [address] [place] [address] Window Trimmer: Nino Farias MD WBC #/vol (U) 0 TO 2 Normal 0-5 [facility] Comment on above: Performed By: #### U MICAO, UAX #### [facility] [address] [place] [address] Window Trimmer: Nino Farias MD Amorphous sediment LM Ql (Urine sed) NOT REPORTED Normal [facility] Comment on above: Performed By: #### U MICAO, UAX #### [facility] [address] [place] [address] Window Trimmer: Nino Fraias MD Casts LM.LPF #/area (Urine sed) NOT REPORTED Normal [facility] Comment on above: Performed By: #### U MICAO, UAX #### [facility] [address] [place] [address] Window Trimmer: Nino Farias MD Crystals LM Nom (Urine sed) NOT REPORTED Normal [facility] Comment on above: Performed By: #### U MICAO, UAX #### [facility] [address] [place] [address] Window Trimmer: Nino Farias MD Epithelial, Renal NOT REPORTED Normal 0 [facility] Comment on above: Performed By: #### U MICAO, UAX #### [facility] [address] [place] [address] Window Trimmer: Nino Farias MD Mucus Strands NOT REPORTED Normal [facility] Comment on above: Performed By: #### U MICAO, UAX #### [facility] [address] [place] [address] Window Trimmer: Nino Farias MD Other Observations NOT REPORTED Normal NREQ [facility] Comment on above: Performed By: #### U MICAO, UAX #### [facility] [address] [place] [address] Window Trimmer: Nino Farias MD Trichomonas NOT REPORTED Normal NONE [facility] Comment on above: Performed By: #### U MICAO, UAX #### [facility] [address] [place] [address] Window Trimmer: Nino Farias MD Yeast LM Ql (Urine sed) NOT REPORTED Normal NONE [facility] Comment on above: Performed By: #### U MICAO, UAX #### [facility] [address] [place] [address] Window Trimmer: Nino Farias MD Vital Signs Date Time Vital Sign Value Performing Clinician Faci lity 07-05-2023 22:13-0500 Diastolic blood pressure 74 mm[Hg] Arsenio Martin [facility] 07-05-2023 22:13-0500 Heart rate 62 /min Arsenio Martin [facility] 07-05-2023 22:13-0500 Mean blood pressure 85 mm[Hg] Arsenio Martin [facility] 07-05-2023 22:13-0500 Respiratory rate 14 /min Arsenio Martin [facility] 07-05-2023 22:13-0500 SaO2% (BldA) [Mass fraction] 99 % Arsenio Martin [facility] 07-05-2023 22:13-0500 Systolic blood pressure 107 mm[Hg] Arsenio Martin [facility] 07-05-2023 21:49-0500 Diastolic blood pressure 69 mm[Hg] Arsenio Martin [facility] 07-05-2023 21:49-0500 Heart rate 59 /min Arsenio Martin [facility] 07-05-2023 21:49-0500 Mean blood pressure 80 mm[Hg] Arsenio Mario [facility] 07-05-2023 21:49-0500 Respiratory rate 15 /min Arsenio Mario [facility] 07-05-2023 21:49-0500 SaO2% (BldA) [Mass fraction] 97 % Arsenio Mario [facility] 07-05-2023 21:49-0500 Systolic blood pressure 101 mm[Hg] Arsenio Mario [facility] 07-05-2023 21:02-0500 Diastolic blood pressure 77 mm[Hg] Arsenio Martin [facility] 07-05-2023 21:02-0500 Heart rate 60 /min Arsenio Martin [facility] 07-05-2023 21:02-0500 Mean blood pressure 86 mm[Hg] Arsenio Mario [facility] 07-05-2023 21:02-0500 Respiratory rate 16 /min Arsenio Martin [facility] 07-05-2023 21:02-0500 SaO2% (BldA) [Mass fraction] 99 % Arsenio Martin [facility] 07-05-2023 21:02-0500 Systolic blood pressure 105 mm[Hg] Arsenio Mario [facility] 07-05-2023 17:45-0500 Body temperature 97.52 [degF] Arsenio Mario [facility] 07-05-2023 16:27-0500 Body temperature 96.44 [degF] Arsenio Mario [facility] 07-05-2023 15:15-0500 gluc 136 mg/dL Arsenio Mario [facility] 07-05-2023 15:15-0500 gluc Arsenioulises Martin [facility] 07-05-2023 15:02-0500 Body temperature 95.9 [degF] Arsenio Mario [facility] 07-05-2023 15:02-0500 Heart rate 54 /min Arsenio Mario [facility] 07-05-2023 15:02-0500 Respiratory rate 16 /min Arsenio Mario [facility] 08-09-2022 17:25-0400 Diastolic blood pressure 64 mm[Hg] Arsenio Mario [facility] 08-09-2022 17:25-0400 Heart rate 75 /min Arsenio Mario [facility] 08-09-2022 17:25-0400 Mean blood pressure 83 mm[Hg] Arsenio Mario [facility] 08-09-2022 17:25-0400 Respiratory rate 16 /min Arsenio Mario [facility] 08-09-2022 17:25-0400 SaO2% (BldA) [Mass fraction] 96 % Arsenio Mario [facility] 08-09-2022 17:25-0400 Systolic blood pressure 122 mm[Hg] Arsenio Mario [facility] 08-09-2022 16:00-0400 Diastolic blood pressure 56 mm[Hg] Arsenio Mario [facility] 08-09-2022 16:00-0400 Heart rate 64 /min Arsenio Mario [facility] 08-09-2022 16:00-0400 Mean blood pressure 72 mm[Hg] Arsenio Martin [facility] 08-09-2022 16:00-0400 SaO2% (BldA) [Mass fraction] 92 % Arsenio Martin [facility] 08-09-2022 16:00-0400 Systolic blood pressure 103 mm[Hg] Arsenio Martin [facility] 08-09-2022 15:00-0400 Diastolic blood pressure 67 mm[Hg] Arsenio Martin [facility] 08-09-2022 15:00-0400 Heart rate 61 /min Arsenio Martin [facility] 08-09-2022 15:00-0400 Mean blood pressure 80 mm[Hg] Arsenio Martin [facility] 08-09-2022 15:00-0400 Systolic blood pressure 106 mm[Hg] Arsenio Martin [facility] 08-09-2022 14:03-0400 SaO2% (BldA) [Mass fraction] 94.1 % Arsenio Martin [facility] Resp Auto SS 08-09-2022 13:10-0400 Body temperature 98.24 [degF] Arsenio Martin [facility] 08-09-2022 13:10-0400 Heart rate 70 /min Arsenio Martin [facility] 08-09-2022 13:10-0400 Respiratory rate 18 /min Arsenio Martin [facility] Encounters Encounter Date Encounter Type Care Provider Facility Start: 07-11-2023 Evaluation and management of inpatient LOREE CHANCE [facility] Start: 07-08-2023 Evaluation and management of inpatient MANESH LARSON [facility] Start: 07-06-2023 Evaluation and management of inpatient MANLAYNE LARSON [facility] Start: 07-06-2023 End: 07-11-2023 Evaluation and management of inpatient UMAIR MANDUJANO [facility] Start: 07-05-2023 End: 07-06-2023 Emergency department patient visit Arsenio Martin Facility[place] Start: 07-05-2023 End: 07-05-2023 Emergency department patient visit Arsenio Martin [facility] Start: 06-29-2023 Evaluation and management of inpatient ROSALBA MOSS [facility] Start: 06-29-2023 End: 07-02-2023 Evaluation and management of inpatient SOCORRO Zayas MATTHEW [facility] Start: 08-22-2022 End: 08-24-2022 Evaluation and management of inpatient DR ЕКАТЕРИНА ROBERT . Facility: Start: 08-09-2022 End: 08-09-2022 Emergency department patient visit Arsenio Martin Facility[place] Start: 08-09-2022 End: 08-09-2022 Emergency department patient visit Arsenio Martin [facility] Start: 07-30-2022 End: 08-01-2022 Evaluation and management of inpatient DR ЕКАТЕРИНА ROBERT . Facility: Start: 07-27-2022 End: 07-28-[address] ЕКАТЕРИНА ROBERT . Facility:[facility] Start: 05-08-2022 End: 05-09-[address] ЕКАТЕРИНА ROBERT . Facility:[facility] Start: 01-31-2022 End: 01-31-[address] ЕКАТЕРИНА ROBERT . Facility: Start: 11-01-2021 End: 11-03-2021 Evaluation and management of inpatient TAMIE FAJARDO Facility:[facility] Start: 10-31-2021 End: 11-01-2021 Evaluation and management of inpatient DR ЕКАТЕРИНА ROBERT . Facility:[facility] Start: 09-28-2021 End: 09-29-[address] ЕКАТЕРИНА ROBERT . Facility:[facility] Start: 09-06-2021 End: 09-07-[address] ЕКАТЕРИНА ROBERT . Facility:[facility] Start: 03-04-2021 End: 03-04-2021 Emergency department patient visit Magdalena Oconnor Facility:[facility] Start: 09-08-2018 End: 09-08-2018 Emergency department patient visit KEISHA DORADO JR [facility] Procedures Date Procedure Procedure Detail Performing Clinician Start: 08-02-2022 Microscopic examinat ion of blood, culture DR ЕКАТЕРИНА ROBERT . Comment on above: Performed By: #### B [id number] ####[facility] [address] [place], [place] [address]Ep. Nahed Otilio Start: 11-02-2021 Antibody screen SAVANNAHI AD Comment on above: Performed By: #### 3 [id number], [id number] #### [facility] [address] Start: 07-16-2019 Phalangectomy of toe Fabián Martin Comment on above: medial base proximal phalanx fracture fragment to left 3rd toe Start: 09-08-2018 Urinalysis microscopic only KEISHA DORADO JR Start: 09-08-2018 Urnls dip stick/tabl et rgnt auto w/o microscopy KEISHA DORADO JR Start: 09-08-2018 Assay of lactate WILLIA Pablo DORADO JR Start: 09-08-2018 Assay of lipase KEISHA DORDAO JR Start: 09-08-2018 Blood count complete auto&auto difrntl wbc KEISHA DORADO JR Appendectomy Arsenio Martin Tonsillectomy and adenoidectomy Arsenio Martin Payers Date Payer Category Payer Self-pay 2018 Medicare [id number] 1960 Unknown [id number] 2.16.8 [id number] 1960 Unknown [id number] 2.16.8 [id number] 1960 Unknown [id number] 2.16.84 [id number] 1960 Unknown [id number] 2.16.84 [id number] 1960 Unknown [id number] 2.16.84 [id number] 1960 Unknown [id number] 2.16.84 [id number] 1960 Unknown [id number] 2.16.84 [id number] 1960 Unknown [id number] 2.16.84 [id number] 1960 Unknown [id number] 2.16.84 [id number] 1960 Unknown [id number] 2.16.84 [id number] 1960 Unknown [id number] 2.16.8 [id number] 1960 Unknown [id number] 2.16.8 [id number] 1958 Unknown [id number] Unknown [id number] 2.16.8 [id number] Social History Date Type Detail Facility Start: 08-09-2022 Tobacco smoking status Heavy t obacco smoker (finding) [facility] Comment on above: 2 cigarettes a day Sex Assigned At Female [facility] Functional Status Date Assessment Result Facility 07-05-2023 Functional Status N/A [facility] 08-09-2022 Functional Status N/A [facility] Clinical Notes 11-03-2021 to 07-11-2023 Note Date & Type Note Facility 07-11-2023 Note Hospital Medicine Discharge Summary Final Discharge Diagnosis: Bradycardia Admission Diagnosis: Bradycardia [R00.1] Junctional rhythm on EKG Intermittent Hypotension CAD s/p stent placement HFpEF s/p RHC NSTEMI-suspect Type II COPD-not in exacerbation Anxiety Sciatica Hospital course: Vivian Vann is a 63 y.o. female with PMHx of HTN, A-fib, HFpEF, T2DM, Stent placement in October 2021, sciatica on dino and tobacco dependence who presented on 07/06 lightheadedness, dizziness, SOB and chest pain. Patient stated that these symptoms appeared after a brisk walk and did not relieve with rest. The patient described her chest pain as a tightness but denied any radiation and during transport she experienced nausea and diaphoresis. The patient stated EMS gave her medication for nausea after which taking all of her symptoms resolved. Patient had a cardiac catheterization (07/02/2023) that showed decompensated heart failure with mean wedge pressure 35mmHG and a TTE (06/29/2023) that showed EF 60%. The patient was instructed to continue home meds but no longer needed to be on DAPT and her Plavix was discontinued. Upon arrival the patient was bradycardiac, she had a BNP 721, and upward trending troponin of 0.12 from 0.06 a week ago. Cardiology and EP was consulted. EKG showed junctional rhythm ST & Marked T wave abnormality. Chest X-ray showed no acute pulmonary process. DAPT w. ASA was continued. On 07/10 patient received permanent pacemaker without complication. She continued with pain for which she was prescribed a 3-day prescription of oxycodone. Patient was discharged home in stable condition. Patient made hemodynamically stable. Dear Dr. Jakob MD, Vivian is advised to follow up with you within 1-2 weeks. Follow-up with: Cardiology Scheduled appointments: Future Appointments Date Time Provider Department Center 07/17/2023 10:20 AM Socorro Oviedo NP CARD Deirdre [facility] 08/06/2023 1:30 PM [facility] CV CLINIC DEVICE CHECK [facility] CARD [place] [facility] Your medication list START taking these medications Instructions Last Dose Given Next Dose Due oxyCODONE 5 mg immediate release tablet Commonly known as: Roxicodone Take 1 tablet (5 mg) by mouth every 6 (six) hours if needed for severe pain (8-10 pain score) for up to 3 days. CONTINUE taking these medications Instructions Last Dose Given Next Dose Due albuterol 90 mcg/actuation inhaler ALPRAZolam 1 mg tablet Commonly known as: Xanax aspirin 81 mg EC tablet atorvastatin 80 mg tablet Commonly known as: Lipitor busPIRone 10 mg tablet Commonly known as: Buspar cyclobenzaprine 10 mg tablet Commonly known as: Flexeril Farxiga 10 mg Generic drug: dapagliflozin propanediol furosemide 40 mg tablet Commonly known as: Lasix Take 1 tablet (40 mg) by mouth in the morning. gabapentin 300 mg capsule Commonly known as: Neurontin pantoprazole 40 mg EC tablet Commonly known as: ProtoNix spironolactone 25 mg tablet Commonly known as: Aldactone Take 1 tablet (25 mg) by mouth in the morning for 30 doses. traZODone 50 mg tablet Commonly known as: Desyrel STOP taking these medications clopidogrel 75 mg tablet Commonly known as: Plavix Where to Get Your Medications You can get these medications from any pharmacy Bring a paper prescription for each of these medications oxyCODONE 5 mg immediate release tablet Vivian is allergic to hay fever and allergy relief and house dust. Disposition: Home or Self Care () Discharge Condition: Good Code Status: Prior Diagnostic Results Hematology: Results from last 7 days Lab Units 07/11/23 0529 07/10/23 0428 07/07/238 07/06/23 0238 WBC AUTO 10*3/uL 11.52* 10.52 < > 14.42* HEMOGLOBIN g/dL 13.1 14.0 < > 12.6 HEMATOCRIT % 40.9 42.6 < > 39.0 MCV fL 87.0 86.2 < > 86.5 PLATELETS AUTO 10*3/uL 339 329 < > 321 INR -- -- -- 1.00 < > = values in this interval not displayed. Chemistry: Results from last 7 days Lab Units 07/11/23 0529 07/10/23 0428 07/09/23 0445 07/08/23 0508 07/07/23 0418 07/06/23 0238 SODIUM mmol/L 135* 136 136 < > 135* 135* POTASSIUM mmol/L 3.9 3.9 4.3 < > 4.6 4.6 CHLORIDE mmol/L 97* 97* 99 < > 97* 98 CO2 mmol/L 27 30 32* < > 31 28 BUN mg/dL 32* 23 23 < > 21 23 CREATININE mg/dL 1.15 1.06 0.98 < > 1.06 1.23* GLUCOSE mg/dL 143* 139* 131* < > 119* 119* MAGNESIUM mg/dL -- -- -- -- 2.3 2.2 CALCIUM mg/dL 9.4 9.9 9.1 < > 9.2 8.9 PHOSPHORUS mg/dL -- -- -- -- -- 5.2* < > = values in this interval not displayed. Results from last 7 days Lab Units 07/06/23 0238 AST U/L 17 ALT U/L 13 ALK PHOS U/L 47 BILIRUBIN TOTAL mg/dL 0.5 Test Results Pending At Discharge: Diet at the time of discharge: regular diet and cardiac diet Nutrition Screen Activity: Patient currently has no discharge activity orders Objective Blood pressure 107/80, pulse 79, temperature 36.4 ???C (97.5 ???F), resp. rate 21, height 1.72 m (5' 7.72 ), weight 70.4 kg (1 (more content not included)... [facility] 07-11-2023 Note Occupational Therapy Occupational Therapy Evaluation Patient Name: Vivian Vann : 1960 Today's Date: 07/11/2023 Time In: 1246 Time Out: 1304 Vivian Vann is a 63 y.o. female presenting with asystole. Social History She reports that she has been smoking cigarettes. She started smoking about 41 years ago. She has a 41.00 pack-year smoking history. She does not have any smokeless tobacco history on file. She reports current drug use. Drug: Marijuana Procedure Information Date/Time: 07/10/23 1500 Procedure: Implant PPM General Subjective: friendly and cooperative., reports minimal social support at home Patient Active Problem List Diagnosis NSTEMI (non-ST elevated myocardial infarction) ([facility]/HCC) Coronary arteriosclerosis Hyperlipidemia Type 2 diabetes mellitus ([facility]/HCC) Acute non-ST segment elevation myocardial infarction ([facility]/HCC) Cigarette smoker Other forms of angina pectoris Hypomagnesemia Acute midline low back pain without sciatica Bradycardia Junctional bradycardia No past medical history on file. No past surgical history on file. Precautions Precautions Medical Precautions: pacemaker Pain Pain Assessment Pain Score: 3 (left shoulder and chest area from pacer site) Cognition Cognition Overall Cognitive Status: Within Functional Limits General Assessment General Assessment Hearing: (wfl) Hand Dominance: Right Home Living Home Living Type of Home: House (rents a home) Lives With: Alone Home Adaptive Equipment: None Home Layout: One level Home Access: Stairs to enter with rails (3) Bathroom Shower/Tub: Tub/shower unit Prior Level of Function Prior Function Level of Ralls: Independent with ADLs and functional transfers, Independent with homemaking with ambulation Prior Functional Mobility: Independent without device (does not drive, takes bus or walks) Prior IADLs IADL History Homemaking Responsibilities: Yes Static Standing Balance Static Standing Balance Static Standing-Level of Assistance: Independent ADL ADL UE Dressing Assistance: Independent (following pacer precautions) LE Dressing Assistance: Stand by Transfers Transfers Transfer: (indep supine to wit with min VC for precautions , indep : sit to stand , remained standing at end of eval as she is getting ready to d/c home.,) Objective General Assessments Activity Tolerance Endurance: Stage II Vision - Basic Assessment Current Vision: No visual deficits Sensation Light Touch: No apparent deficits Coordination Movements are Fluid and Coordinated: Yes Extremity Assessments RUE Assessment RUE Assessment: (reports no issues with BUE / MMT deferred) Outcome Assessments AM-PAC 6 Clicks Putting on and taking off regular lower body clothing?: None (Independent) Bathing(Including washing,rinsing,drying)?: None (Independent) Toileting, which includes using the toilet,bedpan,or urinal?: None (Independent) Putting on and taking off regular upper body clothing?: None (Independent) Taking care of personal grooming such as brushing teeth?: None (Independent) Eating meals?: None (Independent) Total Score OT [facility]: 24 Assessment/Plan OT Assessment OT Education/Comments: (PPM handout issued and discussed with good return demo) Plan OT Plan: No skilled OT OT Discharge Recommendations: Home OT - Discharge Recommendations Placed: Yes OT Goals Multi-Disciplinary Problems (from Occupational Therapy) Active Problems Not on file [facility] 07-11-2023 Note UTP CARDIOLOGY PROGR ESS NOTE Reason for follow up: Bradycardia s/p PPM Subjective Patient seen and examined at bedside. No acute events overnight. She c/o some shoulder/arm pain post procedure. Denies fever/chills, other chest pain, dyspnea, dizziness/LH, palpitations, LE edema. Tele: SR with intermittent pacing. Objective Patient Vitals for the past 24 hrs: BP Temp Temp src Pulse Resp SpO2 Weight 07/11/23 0800 91/66 36.3 ???C (97.3 ???F) -- 73 13 92 % -- 07/11/23 0555 -- -- -- -- -- -- 70.4 kg (155 lb 3.3 oz) 07/11/23 0335 98/81 36.4 ???C (97.5 ???F) Temporal 79 23 93 % -- 07/11/23 0010 96/67 36.3 ???C (97.3 ???F) Temporal 74 16 -- -- 07/10/23 2140 91/73 -- -- 75 15 97 % -- 07/10/232014 (!) 120/93 36.9 ???C (98.5 ???F) -- 81 16 97 % -- 07/10/23 1830 103/76 -- -- 75 14 90 % -- 07/10/23 1815 99/87 -- -- 78 17 94 % -- 07/10/23 1800 105/83 -- -- 77 14 93 % -- 07/10/23 1753 107/73 -- -- 76 12 93 % -- 07/10/23 1735 127/68 -- -- 76 15 98 % -- 07/10/23 1720 110/83 -- -- 77 16 96 % -- 07/10/23 1655 123/67 -- -- 76 -- -- -- 07/10/23 1639 (!) 133/93 -- -- 76 19 98 % -- 07/10/23 1620 116/79 -- -- 93 17 93 % -- 07/10/23 1513 -- -- -- -- -- 94 % -- 07/10/23 1513 110/77 -- -- 85 16 92 % -- 07/10/23 1217 92/65 36.5 ???C (97.7 ???F) Temporal 75 17 93 % -- Physical Exam Vitals and nursing note reviewed. Constitutional: General: She is not in acute distress. Appearance: Normal appearance. She is not ill-appearing. HENT: Head: Normocephalic. Mouth/Throat: Mouth: Mucous membranes are moist. Eyes: Pupils: Pupils are equal, round, and reactive to light. Cardiovascular: Rate and Rhythm: Normal rate and regular rhythm. Heart sounds: No murmur heard. No friction rub. No gallop. Comments: Left upper chest PPM incision covered with telfa/tegaderm dressing that is C/D/I. No drainage, hematoma, ecchymosis, redness. Pulmonary: Effort: Pulmonary effort is normal. No respiratory distress. Breath sounds: Normal breath sounds. No wheezing or rales. Abdominal: General: Abdomen is flat. Palpations: Abdomen is soft. Musculoskeletal: Right lower leg: No edema. Left lower leg: No edema. Skin: General: Skin is warm and dry. Neurological: General: No focal deficit present. Mental Status: She is alert and oriented to person, place, and time. Psychiatric: Mood and Affect: Mood normal. Behavior: Behavior normal. Thought Content: Thought content normal. Judgment: Judgment normal. Lab Results Component Value Date NA 135 (L) 07/11/2023 K 3.9 07/11/2023 CL 97 (L) 07/11/2023 ANIONGAP 15 07/11/2023 BUN 32 (H) 07/11/2023 CREATININE 1.15 07/11/2023 CALCIUM 9.4 07/11/2023 MG 2.3 07/07/2023 PHOS 5.2 (H) 07/06/2023 Lab Results Component Value Date BILITOT 0.5 07/06/2023 ALKPHOS 47 07/06/2023 AST 17 07/06/2023 ALT 13 07/06/2023 PROT 6.8 07/06/2023 ALBUMIN 4.6 07/06/2023 Lab Results Component Value Date WBC 11.52 (H) 07/11/2023 RBC 4.70 07/11/2023 HGB 13.1 07/11/2023 HCT 40.9 07/11/2023 MCV 87.0 07/11/2023 MCH 27.9 07/11/2023 MCHC 32.0 07/11/2023 RDW 15.3 (H) 07/11/2023 NEUTOPHILPCT 61.8 07/11/2023 LYMPHOPCT 27.4 07/11/2023 MONOPCT 7.4 07/11/2023 EOSPCT 2.8 07/11/2023 BASOPCT 0.3 07/11/2023 NEUTROABS 7.12 07/11/2023 LYMPHSABS 3.16 07/11/2023 MONOSABS 0.85 07/11/2023 EOSABS 0.32 07/11/2023 BASOSABS 0.03 07/11/2023 PLT 339 07/11/2023 NRBC 0.0 07/11/2023 Current Medications: ALPRAZolam, 1 mg, oral, BID BETA aspirin, 81 mg, oral, Daily atorvastatin, 80 mg, oral, Daily busPIRone, 10 mg, oral, BID dapagliflozin propanediol, 10 mg, oral, Daily furosemide, 40 mg, oral, Daily gabapentin, 300 mg, oral, TID lidocaine, 1 patch, topical (top), Daily pantoprazole, 40 mg, oral, Daily before breakfast spironolactone, 25 mg, oral, Daily traZODone, 50 mg, oral, Nightly IV medications: PRN Medications: PRN medications: albuterol, cyclobenzaprine, ondansetron ODT OR ondansetron, oxyCODONE, Insert peripheral IV AND Saline lock IV AND sodium chloride CV Testin07/11/2023 7:42 AM - Interface, Radiology Results In Narrative & Impression CHEST 1 VIEW HISTORY: Lead placement COMPARISON: 07/10/2023 IMPRESSION: *Left-sided subclavian approach dual lead pacemaker in place with leads similar to that seen on intraoperative images from 07/10/2023. *Lungs and pleural spaces are clear. Normal heart size. Electronically signed: Denver Hernandez. [facility] 06/29/23: Final Impression: 1) Coronary angiogram shows stable CAD 2) right heart catheterization shows severely decompensated heart failure with mean wedge pressure 35 mmHg Plan: 1) optimal med therapy for CAD and HFpEF 2) Aspirin and high intensity statin therapy for CAD 3) optimize medical therapy for HFpEF as tolerated 4) outpatient follow-up with [place] cardiology Echo 06/29/23: Left Ventricle: The left ventricle is normal size. Global left ventricular sys (more content not included)... [facility] 07-11-2023 Note Hospital Medicine Daily Progress Note - 07/11/2023 8:24 AM; Room: 3120/3120-01 Admission: 07/06/2023 12:25 AM; Length of stay: 5 days THE HOSPITALIST TEAM PREFERS TO USE [employer] CHAT FOR COMMUNICATION 7AM-7PM. IF I DO NOT RESPOND WITHIN 15 MINUTES, PLEASE PAGE ME/CALL THROUGH THE OVEN OPERATOR. FROM 7PM-7AM, PLEASE PAGE [phone](COVR) Code Status: Full Code Barriers to Discharge: PPM placement Expected Discharge Date: today? Discharge Destination: home Overview Patient is seen for evaluation and management of bradycardia Subjective Patient resting in bed, she denies any difficulty to left upper extremity, she asked about pain medication on discharge. Physical Exam Visit Vitals BP 98/81 (BP Location: Right arm, Patient Position: Lying) Pulse 79 Temp 36.4 ???C (97.5 ???F) (Temporal) Resp 23 Intake/Output Summary (Last 24 hours) at 07/11/2023 0824 Last data filed at 07/11/2023 0225 Gross per 24 hour Intake 940 ml Output 1925 ml Net -985 ml Physical Exam Vitals reviewed. HENT: Mouth/Throat: Mouth: Mucous membranes are moist. Cardiovascular: Rate and Rhythm: Regular rhythm. Bradycardia present. Pulses: Normal pulses. Pulmonary: Breath sounds: Normal breath sounds. Abdominal: Palpations: Abdomen is soft. Musculoskeletal: Cervical back: Normal range of motion. Skin: General: Skin is warm. Comments: Pacemaker puncture site to left upper chest without erythema or edema. Neurological: Mental Status: She is alert and oriented to person, place, and time. Psychiatric: Mood and Affect: Mood normal. Estimated body mass index is 23.8 kg/m??? as calculated from the following: Height as of this encounter: 1.72 m (5' 7.72 ). Weight as of this encounter: 70.4 kg (155 lb 3.3 oz). Active Inpatient Problems Principal Problem: Bradycardia Active Problems: Junctional bradycardia Assessment and Plan Junctional rhythm on EKG 07/10 status post PPM Patient reports Tylenol 3's do not help, will order a 3-day supply of Oxycodone. Chest xray post procedure without significant findings Discussed with cardiology team regarding patient's documented history of atrial fibrillation, cardiology team without suggestions of or suspicion of atrial fibrillation therefore patient does not require anticoagulation at this time Intermittent Hypotension- Noted on last admission as well Lasix dose was reduced CAD s/p stent placement- on SAPT w ASA, continue No need for Plavix per cardiology team HFpEF s/p RHC- GDMT as tolerated NSTEMI-suspect Type II, supportive monitoring, recent cath reviewed Troponin on admit 0.12 COPD-not in exacerbation Anxiety- cont home regimen. Sciatica- improved, supportive management, lidocaine patch. Malnutrition Attestation: . VTE Prophylaxis: Will start AFTER PROCEDURE Scheduled Meds ALPRAZolam, 1 mg, oral, BID BETA aspirin, 81 mg, oral, Daily atorvastatin, 80 mg, oral, Daily busPIRone, 10 mg, oral, BID dapagliflozin propanediol, 10 mg, oral, Daily furosemide, 40 mg, oral, Daily gabapentin, 300 mg, oral, TID lidocaine, 1 patch, topical (top), Daily pantoprazole, 40 mg, oral, Daily before breakfast spironolactone, 25 mg, oral, Daily traZODone, 50 mg, oral, Nightly Pertinent Investigations Hematology: Results from last 7 days Lab Units 07/11/23 0529 07/10/23 04207/07/238 07/06/23 0238 WBC AUTO 10*3/uL 11.52* 10.52 < > 14.42* HEMOGLOBIN g/dL 13.1 14.0 < > 12.6 HEMATOCRIT % 40.9 42.6 < > 39.0 MCV fL 87.0 86.2 < > 86.5 PLATELETS AUTO 10*3/uL 339 329 < > 321 INR -- -- -- 1.00 < > = values in this interval not displayed. Chemistry: Results from last 7 days Lab Units 07/11/23 0529 07/10/23 0428 07/09/23 0445 07/08/23 0508 07/07/238 07/06/23 0238 SODIUM mmol/L 135* 136 136 < > 135* 135* POTASSIUM mmol/L 3.9 3.9 4.3 < > 4.6 4.6 CHLORIDE mmol/L 97* 97* 99 < > 97* 98 CO2 mmol/L 27 30 32* < > 31 28 BUN mg/dL 32* 23 23 < > 21 23 CREATININE mg/dL 1.15 1.06 0.98 < > 1.06 1.23* GLUCOSE mg/dL 143* 139* 131* < > 119* 119* MAGNESIUM mg/dL -- -- -- -- 2.3 2.2 CALCIUM mg/dL 9.4 9.9 9.1 < > 9.2 8.9 PHOSPHORUS mg/dL -- -- -- -- -- 5.2* < > = values in this interval not displayed. Results from last 7 days Lab Units 07/06/23 0238 AST U/L 17 ALT U/L 13 ALK PHOS U/L 47 BILIRUBIN TOTAL mg/dL 0.5 Historical Values: (Includes values prior to this admission) Lab Results Component Value Date TSH 4.25 07/06/2023 HDL 48 07/06/2023 LDL 95 07/06/2023 No results found for: [id number] , IRON , TIBC , C3 , C4 , WENDI , CANCA , ASO , PSA , CEA , CA125 , CA199 , AFP , CA153 Imaging XR chest 1 view Narrative: CHEST 1 VIEW HISTORY: Lead placement COMPARISON: 07/10/2023 Impression: *Left-sided subclavian approach dual lead pacemaker in place with leads similar to that seen on intraoperative images from 07/10/2023. *Lungs and pleural spaces are clear. Normal heart (more content not included)... [facility] 07-10-2023 Note Indications for dual -chamber pacemaker insertion: The patient is a 63-year-old woman who has been having episodes of very symptomatic bradycardia recorded on in-hospital monitor. Because of this persistent bradycardia that is causing symptoms she will undergo pacemaker insertion. Procedure: After written informed consent was obtained she was brought to the pacemaker laboratory in the fasting state. A contrast injection for venography of the upper extremity was performed to delineate the course and patency of the left subclavian. The left subclavicular fossa was then prepped and draped in usual manner and 1% Xylocaine solution infiltrated for local anesthesia. Utilizing percutaneous technique the left subclavian was cannulated and under fluoroscopic guidance a guidewire advanced to the level of the inferior vena cava to ensure intervascular placement. Following initial sharp incision meticulous blunt blunt dissection was employed to create a subfascial pocket. Via 2 breakaway introducer sheaths Biotronik active-fixation leads were fluoroscopically guided into positions in the right atrial appendage and right ventricular septum. The active-fixation coils of each were deployed and the leads were sutured into place with an 0 silk suture. They were connected to a Biotronik dual-chamber pacing system. This was placed in the previously created subfascial pocket. It was sutured into place with an 0 silk suture. The off field telemetry adequate sensing and pacing levels were determined. The ventricular lead had a pacing threshold of 0.5 V at 0.4 ms pulse width. The R wave amplitude was 6.1 mV and the impedance was 585 ohms. The right atrial lead had a pacing threshold of 0.5 V at 0.4 ms pulse width with a R P wave amplitude of 3.9 mV and a impedance of 585 ohms. The pocket was irrigated with antibiotic solution. The fascial layer closed with a continuous 2-0 Vicryl suture. The subdermal area with interrupted 3-0 Biosyn sutures placed utilizing a buried knot technique. The skin surface was closed with Dermabond glue and the wound was dressed with a Telfa pad and Tegaderm dressing. Sponge and needle counts were correct at the end of the case. Prior to the procedure the patient received 1 g of intravenous vancomycin as antibiotic prophylaxis. Conscious sedation was maintained throughout the case with intravenous midazolam and fentanyl. She was returned to the holding area in stable hemodynamic condition. Impressions: Dual-chamber pacemaker insertion Conscious sedation Fluoroscopy Contrast injection for venography of the upper extremity Loree Chance M.D. [facility] Roller Inspector And Mendercrowd controller and Pediatrics Director: Cardiac Electrophysiology Program [facility] 07-10-2023 Note Patient: Vivian Dela Cruz or Procedure Information Date/Time: 07/10/23 1500 Procedure: Implant PPM Location: [facility] TU[facility] MAKING MACHINE OPERATOR 1 / [facility] (Cath) Providers: Loree Chance MD Clinical information reviewed: Allergies Meds Physical Exam Airway Mallampati: I Cardiovascular - normal exam Dental - normal exam Pulmonary - normal exam Abdominal - normal exam Anesthesia Plan ASA 2 Patient was not previously instructed to abstain from smoking on day of procedure. Patient did not smoke on day of procedure. Education provided regarding risk of obstructive sleep apnea. Anesthetic plan and risks discussed with patient. Use of blood products discussed with patient who. Additional Equipment Requests [facility] 07-10-2023 Note [facility] CARDIOLOGY PROGR ESS NOTE Reason for follow up: Bradycardia Subjective Patient is NPO with plans for PPM implantation later this afternoon. She was seen and examined this morning with RN at bedside. Pt very emotional, c/o generalized pain and requesting pain medication. Denies any CP, SOB, palpitations, dizziness. Tele: SR, intermittent ventricular bigeminy, PSVT overnight Objective Patient Vitals for the past 24 hrs: BP Temp Temp src Pulse Resp SpO2 Weight 07/10/23 0727 93/72 36.6 ???C (97.9 ???F) Temporal 71 16 91 % -- 07/10/23 0601 -- -- -- -- -- -- 70.2 kg (154 lb 12.8 oz) 07/10/23 0410 94/63 36.4 ???C (97.6 ???F) Temporal 63 17 95 % -- 07/10/23 0020 105/63 36.8 ???C (98.3 ???F) Temporal 67 19 92 % -- 07/09/23 1940 93/67 36.7 ???C (98.1 ???F) Temporal 72 17 95 % -- 07/09/23 1546 95/64 36.6 ???C (97.9 ???F) Temporal 72 23 98 % -- 07/09/23 1300 -- -- -- -- -- 100 % -- 07/09/23 1148 90/60 36.7 ???C (98.1 ???F) Temporal 70 17 -- -- Physical Exam Vitals and nursing note reviewed. Constitutional: General: She is not in acute distress. Appearance: Normal appearance. She is not ill-appearing. HENT: Head: Normocephalic. Mouth/Throat: Mouth: Mucous membranes are moist. Eyes: Pupils: Pupils are equal, round, and reactive to light. Cardiovascular: Rate and Rhythm: Normal rate and regular rhythm. Heart sounds: No murmur heard. No friction rub. No gallop. Pulmonary: Effort: Pulmonary effort is normal. No respiratory distress. Breath sounds: Normal breath sounds. No wheezing or rales. Abdominal: General: Abdomen is flat. Palpations: Abdomen is soft. Musculoskeletal: Right lower leg: No edema. Left lower leg: No edema. Skin: General: Skin is warm and dry. Neurological: General: No focal deficit present. Mental Status: She is alert and oriented to person, place, and time. Psychiatric: Comments: +anxious, crying Lab Results Component Value Date NA 136 07/10/2023 K 3.9 07/10/2023 CL 97 (L) 07/10/2023 ANIONGAP 13 07/10/2023 BUN 23 07/10/2023 CREATININE 1.06 07/10/2023 CALCIUM 9.9 07/10/2023 MG 2.3 07/07/2023 PHOS 5.2 (H) 07/06/2023 Lab Results Component Value Date BILITOT 0.5 07/06/2023 ALKPHOS 47 07/06/2023 AST 17 07/06/2023 ALT 13 07/06/2023 PROT 6.8 07/06/2023 ALBUMIN 4.6 07/06/2023 Lab Results Component Value Date WBC 10.52 07/10/2023 RBC 4.94 07/10/2023 HGB 14.0 07/10/2023 HCT 42.6 07/10/2023 MCV 86.2 07/10/2023 MCH 28.3 07/10/2023 MCHC 32.9 07/10/2023 RDW 15.3 (H) 07/10/2023 NEUTOPHILPCT 57.2 07/10/2023 LYMPHOPCT 31.7 07/10/2023 MONOPCT 5.7 07/10/2023 EOSPCT 5.0 07/10/2023 BASOPCT 0.2 07/10/2023 NEUTROABS 6.01 07/10/2023 LYMPHSABS 3.34 07/10/2023 MONOSABS 0.60 07/10/2023 EOSABS 0.53 (H) 07/10/2023 BASOSABS 0.02 07/10/2023 PLT 329 07/10/2023 NRBC 0.0 07/10/2023 Current Medications: acetaZOLAMIDE, 250 mg, oral, BID ALPRAZolam, 1 mg, oral, BID BETA aspirin, 81 mg, oral, Daily atorvastatin, 80 mg, oral, Daily busPIRone, 10 mg, oral, BID dapagliflozin propanediol, 10 mg, oral, Daily furosemide, 40 mg, oral, Daily gabapentin, 300 mg, oral, TID lidocaine, 1 patch, topical (top), Daily pantoprazole, 40 mg, oral, Daily before breakfast spironolactone, 25 mg, oral, Daily traZODone, 50 mg, oral, Nightly IV medications: PRN Medications: PRN medications: albuterol, cyclobenzaprine, ondansetron ODT OR ondansetron, Insert peripheral IV AND Saline lock IV AND sodium chloride CV Testing: [facility] 06/29/23: Final Impression: 1) Coronary angiogram shows stable CAD 2) right heart catheterization shows severely decompensated heart failure with mean wedge pressure 35 mmHg Plan: 1) optimal med therapy for CAD and HFpEF 2) Aspirin and high intensity statin therapy for CAD 3) optimize medical therapy for HFpEF as tolerated 4) outpatient follow-up with [place] [facility]ology Echo 06/29/23: Left Ventricle: The left ventricle is normal size. Global left ventricular systolic function is normal. The EF is 60 % visually. Left ventricular wall thickness is normal. No regional wall motion abnormality. Right Ventricle: The right ventricle is normal in size. Normal right ventricular systolic function. Doppler studies suggest mildly elevated right sided pressures. Left Atrium: The left atrium is mildly enlarged Encounter Date: 07/06/23 ECG 12 lead Result Value Ventricular Rate 63 QRS DURATION 86 QT Interval 466 QTC CALCULATION(BAZETT) 476 R-[place] 34 T Wave [place] [address] & Marked T wave abnormality, consider anterolateral ischemia Prolonged QT Abnormal ECG When compared with ECG of 06-JUL-2023 14:34, T wave inversion less evident in Lateral Confirmed by Yoan GRIJALVA, KIERA Rainey ([id number]) on 07/08/2023 12:23:36 PM Assessment/Plan Junctional bradycardia Abnormal EKG- ST/T wave changes concerning for ischemia- [facility] showed stable CAD Ventric (more content not included)... [facility] 07-10-2023 Note Hospital Medicine Daily Progress Note - 07/10/2023 8:08 AM; Room: [address] [place] [address] Admission: 07/06/2023 12:25 AM; Length of stay: 4 days THE HOSPITALIST TEAM PREFERS TO USE [employer] CHAT FOR COMMUNICATION 7AM-7PM. IF I DO NOT RESPOND WITHIN 15 MINUTES, PLEASE PAGE ME/CALL THROUGH THE OVEN OPERATOR. FROM 7PM-7AM, PLEASE PAGE [phone](COVR) Code Status: Full Code Barriers to Discharge: PPM placement Expected Discharge Date: pending status post ppm placement Discharge Destination: home Overview Patient is seen for evaluation and management of bradycardia Subjective Patient resting in bed, she states that she is anxious about her ppm. She also inquires on pain medication after procedure and when she is discharged home. She continues with sciatic pain, Physical Exam Visit Vitals BP 93/72 (BP Location: Right arm, Patient Position: Lying) Pulse 71 Temp 36.6 ???C (97.9 ???F) (Temporal) Resp 16 Intake/Output Summary (Last 24 hours) at 07/10/2023 0808 Last data filed at 07/10/2023 0800 Gross per 24 hour Intake 860 ml Output 900 ml Net -40 ml Physical Exam Vitals reviewed. HENT: Mouth/Throat: Mouth: Mucous membranes are moist. Cardiovascular: Rate and Rhythm: Regular rhythm. Bradycardia present. Pulses: Normal pulses. Pulmonary: Breath sounds: Normal breath sounds. Abdominal: Palpations: Abdomen is soft. Musculoskeletal: Cervical back: Normal range of motion. Skin: General: Skin is warm. Neurological: Mental Status: She is alert and oriented to person, place, and time. Psychiatric: Mood and Affect: Mood normal. Estimated body mass index is 23.73 kg/m??? as calculated from the following: Height as of this encounter: 1.72 m (5' 7.72 ). Weight as of this encounter: 70.2 kg (154 lb 12.8 oz). Active Inpatient Problems Principal Problem: Bradycardia Active Problems: Junctional bradycardia Assessment and Plan Junctional rhythm on EKG EP planning PPM today Will order Tylenol #3 post procedure Intermittent Hypotension- Noted on last admission as well. Lasix dose was redused CAD s/p stent placement- on SAPT w ASA, continue HFpEF s/p RHC- GDMT as tolerated NSTEMI-suspect Type II, supportive monitoring, recent cath reviewed troponin on admit 0.12 COPD-not in exacerbation Anxiety- cont home regimen. Sciatica- improved, supportive management, lidocaine patch. Malnutrition Attestation: . VTE Prophylaxis: Will start AFTER PROCEDURE Scheduled Meds acetaZOLAMIDE, 250 mg, oral, BID ALPRAZolam, 1 mg, oral, BID BETA aspirin, 81 mg, oral, Daily atorvastatin, 80 mg, oral, Daily busPIRone, 10 mg, oral, BID dapagliflozin propanediol, 10 mg, oral, Daily furosemide, 40 mg, oral, Daily gabapentin, 300 mg, oral, TID lidocaine, 1 patch, topical (top), Daily pantoprazole, 40 mg, oral, Daily before breakfast spironolactone, 25 mg, oral, Daily traZODone, 50 mg, oral, Nightly Pertinent Investigations Hematology: Results from last 7 days Lab Units 07/09/2344407/08/[id number]/07/2341707/06/23237 WBC AUTO 10*3/uL 11.03* 12.46* < > 14.42* HEMOGLOBIN g/dL 12.3 12.1 < > 12.6 HEMATOCRIT % 37.5 37.9 < > 39.0 MCV fL 87.0 87.9 < > 86.5 PLATELETS AUTO 10*3/uL 285 301 < > 321 INR -- -- -- 1.00 < > = values in this interval not displayed. Chemistry: Results from last 7 days Lab Units 07/10/[id number]/09/[id number]/[id number]/2341707/06/23 0238 SODIUM mmol/L 136 136 136 135* 135* POTASSIUM mmol/L 3.9 4.3 3.9 4.6 4.6 CHLORIDE mmol/L 97* 99 97* 97* 98 CO2 mmol/L 30 32* 33* 31 28 BUN mg/dL 23 23 26* 21 23 CREATININE mg/dL 1.06 0.98 1.30* 1.06 1.23* GLUCOSE mg/dL 139* 131* 214* 119* 119* MAGNESIUM mg/dL -- -- -- 2.3 2.2 CALCIUM mg/dL 9.9 9.1 9.0 9.2 8.9 PHOSPHORUS mg/dL -- -- -- -- 5.2* Results from last 7 days Lab Units 07/06/23 0238 AST U/L 17 ALT U/L 13 ALK PHOS U/L 47 BILIRUBIN TOTAL mg/dL 0.5 Historical Values: (Includes values prior to this admission) Lab Results Component Value Date TSH 4.25 07/06/2023 HDL 48 07/06/2023 LDL 95 07/06/2023 No results found for: [id number] , IRON , TIBC , C3 , C4 , WENDI , CANCA , ASO , PSA , CEA , CA125 , CA199 , AFP , CA153 Imaging ECG [address] & Marked T wave abnormality, consider anterolateral ischemia Prolonged QT Abnormal ECG When compared with ECG of 06-JUL-2023 14:34, T wave inversion less evident in Lateral Confirmed by Yoan GRIJALVA, KIERA Rainey ([id number]) on 07/08/2023 12:23:36 PM Discharge Planning Discharge Planning Support Systems: (Patient reports no living family) Type of Residence/Post Acute Needs: Private residence Will patient need Precert for Post Acute needs?: No Patient's goal for discharge: home Does the patient need discharge transport arranged?: (Patient will need to arrange for her transportation needs; typewriter mechanic provided printed information to Pt for local [employer] for Pt (more content not included)... [facility] 07-09-2023 Note Patient admitted to the hospital for: Bradycardia. Chart echo from 06/29/2023 reports: EF 60%. Echo report does Not qualify for Cardiac Rehab services per CMS eligibility criteria. A Cardiac Rehab referral must also meet CMS criteria. Marline Suarez, RN, BSN Cardiopulmonary Rehab Coordinator [facility] 07-09-2023 Note Cardiology Inpatient Progress Note Subjective 07/09/23. Good spirits, able to lay flat though still has moderate elevated JVD. PPM delayed till tomorrow due to provider illness. In junctional rhythm on and off, not just sleeping hours. Endorses good UOP, no CP, Dizziness, SOB. She c/o severe right sciatica pain with numb foot, recent onset without injury, wants to know if can take pain meds. 07/08/25 No acute events overnight. Patient remains in junctional rhythm. Vitally stable. No chest pain, dyspnea, dizziness, syncope. Objective Objective: Patient Vitals for the past 24 hrs: BP Temp Temp src Pulse Resp SpO2 Weight 07/09/23 1300 -- -- -- -- -- 100 % -- 07/09/23 1148 90/60 36.7 ???C (98.1 ???F) Temporal 70 17 -- -- 07/09/23 0812 107/75 -- -- 54 17 97 % -- 07/09/23 0731 93/60 36.6 ???C (97.9 ???F) Temporal 52 18 100 % -- 07/09/23 0545 -- -- -- -- -- -- 72 kg (158 lb 12.8 oz) 07/09/23 0325 96/65 36.7 ???C (98.1 ???F) Temporal 63 18 96 % -- 07/08/23 2350 98/70 36.6 ???C (97.9 ???F) Temporal 64 20 97 % -- 07/08/23 2145 106/79 -- -- 69 -- 97 % -- 07/08/23 1940 85/54 36.6 ???C (97.9 ???F) 67 20 96 % -- 07/08/23 1633 98/67 36.7 ???C (98.1 ???F) Temporal 65 23 97 % -- Physical Examination: GENERAL: AOx3, in no acute distress. HEAD: Atraumatic, normocephalic. EYES: IZABELLA, EOMI. NECK: mildly elevated JVD present. CARDIAC: RRR. No murmur, rubs, or gallops. Mild increased work of breathing. RESPIRATORY: CTAB, no increased effort of breathing. ABDOMEN: Soft, nontender, nondistended. EXTREMITIES: No lower extremity edema, peripheral pulses are 2+ bilaterally. NEURO: No focal deficits Relevant Lab Results Encounter Date: 07/06/23 ECG 12 lead Result Value Ventricular Rate 63 QRS DURATION 86 QT Interval 466 QTC CALCULATION(BAZETT) 476 R-[place] 34 T Wave [place] [address] & Marked T wave abnormality, consider anterolateral ischemia Prolonged QT Abnormal ECG When compared with ECG of 06-JUL-2023 14:34, T wave inversion less evident in Lateral Confirmed by Yoan GRIJALVA, KIERA Rainey ([id number]) on 07/08/2023 12:23:36 PM Lab Results Component Value Date CKTOTAL 36.0 07/06/2023 TROPONINI 0.12 (HH) 07/06/2023 No nuclear medicine results found for the past 12 months Relevant Imaging Results ECG [address] & Marked T wave abnormality, consider anterolateral ischemia Prolonged QT Abnormal ECG When compared with ECG of 06-JUL-2023 14:34, T wave inversion less evident in Lateral Confirmed by Yoan GRIJALVA, KIERA Rainey (57) on 07/08/2023 12:23:36 PM 06/29/23 [facility] Final Impression: 1) Coronary angiogram shows stable CAD 2) right heart catheterization shows severely decompensated heart failure with mean wedge pressure 35 mmHg Plan: 1) optimal med therapy for CAD and HFpEF 2) Aspirin and high intensity statin therapy for CAD 3) optimize medical therapy for HFpEF as tolerated 4) outpatient follow-up with [facility] Hemodynamic Data: RA: 17 mmHg RV: 59/20 mmHg PA: 61/21 (41) mmHg PCWP: 35 mmHg AO: 122/76 (96) mmHg CO: 5.3 L/min CI: 2.8 L/min/m2 O2 Sat: PA sat: 67% AO sat: 95% Coronary Angiogram: Left main: patent LAD: proximal LAD has 30% stenosis. The previously placed stent in the mid LAD is widely patent. The first diagonal branch has proximal 30% stenosis. Remainder of the LAD is patent. LCX: The circumflex is a moderate size vessel and is patent. RCA: The RCA is a large vessel and is dominant the RCA is widely patent. The PDA and DUNCAN are both large vessel and are both widely patent 06/29/23 TTE ECHO: Left Ventricle: The left ventricle is normal size. Global left ventricular systolic function is normal. The EF is 60 % visually. Left ventricular wall thickness is normal. No regional wall motion abnormality. Right Ventricle: The right ventricle is normal in size. Normal right ventricular systolic function. Doppler studies suggest mildly elevated right sided pressures. RVSP 37 Left Atrium: The left atrium is mildly enlarged. Great Vessels: IVC: The IVC is dilated. There is no inspiratory collapse of the IVC. Pericardium: No pericardial effusion. ASSESSMENT: Vivian Vann is a 63 y.o. female with PMH of CAD s/p PCI to LAD (October 2021) and repeat LHC and RHC (06/2023- stable CAD and significantly elevated PCWP), HTN, HLD, COPD, tobacco use is as a transfer from outside hospital with complaints of worsening dizziness, retrosternal chest pain and episode of bradycardia. Patient has been transferred to [facility] for consideration of pacemaker placement. As per patient, her heart rate was 18 at the outside hospital, however I could not confirm from any documentation. During the current hospitalization, so far patient's heart rate has been ranging 40-50. EKG performed in the ED showed diffuse T wave inversions with junctional rhythm. Telemetry shows sinus bradycardia a (more content not included)... [facility] 07-09-2023 Note Hospital Medicine Daily Progress Note - 07/09/2023 11:10 AM; Room: [address] [place] [address] Admission: 07/06/2023 12:25 AM; Length of stay: 3 days THE HOSPITALIST TEAM PREFERS TO USE [employer] CHAT FOR COMMUNICATION 7AM-7PM. IF I DO NOT RESPOND WITHIN 15 MINUTES, PLEASE PAGE ME/CALL THROUGH THE OVEN OPERATOR. FROM 7PM-7AM, PLEASE PAGE [phone](COVR) Code Status: Full Code Barriers to Discharge: Bradycardia Expected Discharge Date: PPM planned tomorrow Discharge Destination: home Subjective No issues overnight. PPM was canceled today and will happen tomorrow. Sciatica pain is much better/ Physical Exam Visit Vitals BP 107/75 Pulse 54 Temp 36.6 ???C (97.9 ???F) (Temporal) Resp 17 Intake/Output Summary (Last 24 hours) at 07/09/2023 1110 Last data filed at 07/09/2023 0300 Gross per 24 hour Intake 738 ml Output 800 ml Net -62 ml Physical Exam Constitutional: General: She is not in acute distress. Appearance: Normal appearance. HENT: Head: Normocephalic and atraumatic. Right Ear: Tympanic membrane normal. Left Ear: Tympanic membrane normal. Nose: Nose normal. Mouth/Throat: Mouth: Mucous membranes are moist. Pharynx: Oropharynx is clear. Eyes: Extraocular Movements: Extraocular movements intact. Pupils: Pupils are equal, round, and reactive to light. Cardiovascular: Rate and Rhythm: Normal rate and regular rhythm. Pulses: Normal pulses. Heart sounds: Normal heart sounds. Pulmonary: Effort: Pulmonary effort is normal. No respiratory distress. Breath sounds: Normal breath sounds. No wheezing. Abdominal: General: Abdomen is flat. Palpations: Abdomen is soft. Musculoskeletal: General: Normal range of motion. Cervical back: Normal range of motion and neck supple. Right lower leg: No edema. Left lower leg: No edema. Skin: General: Skin is warm and dry. Neurological: General: No focal deficit present. Mental Status: She is alert and oriented to person, place, and time. Psychiatric: Behavior: Behavior normal. Thought Content: Thought content normal. Estimated body mass index is 24.35 kg/m??? as calculated from the following: Height as of this encounter: 1.72 m (5' 7.72 ). Weight as of this encounter: 72 kg (158 lb 12.8 oz). Active Inpatient Problems Principal Problem: Bradycardia Active Problems: Junctional bradycardia Assessment and Plan Junctional rhythm on EKG, EP planning PPM tomorrow. Intermittent Hypotension- Noted on last admission as well. will reduce Lasix dose. CAD s/p stent placement- on SAPT w ASA, continue HFpEF s/p RHC- GDMT as tolerated NSTEMI-suspect Type II, supportive monitoring, recent cath reviewed COPD-not in exacerbation Anxiety- cont home regimen. Sciatica- improved, supportive management, lidocaine patch. Scheduled Meds ALPRAZolam, 1 mg, oral, BID BETA aspirin, 81 mg, oral, Daily atorvastatin, 80 mg, oral, Daily busPIRone, 10 mg, oral, BID dapagliflozin propanediol, 10 mg, oral, Daily furosemide, 20 mg, oral, Daily gabapentin, 300 mg, oral, TID lidocaine, 1 patch, topical (top), Daily pantoprazole, 40 mg, oral, Daily before breakfast spironolactone, 25 mg, oral, Daily traZODone, 50 mg, oral, Nightly Pertinent Investigations Hematology: Results from last 7 days Lab Units 07/09/23 0445 07/08/23 0508 07/07/23 0418 07/06/23 0238 WBC AUTO 10*3/uL 11.03* 12.46* < > 14.42* HEMOGLOBIN g/dL 12.3 12.1 < > 12.6 HEMATOCRIT % 37.5 37.9 < > 39.0 MCV fL 87.0 87.9 < > 86.5 PLATELETS AUTO 10*3/uL 285 301 < > 321 INR -- -- -- 1.00 < > = values in this interval not displayed. Chemistry: Results from last 7 days Lab Units 07/09/23 0445 07/08/23 0508 07/07/23 0418 07/06/23 0238 SODIUM mmol/L 136 136 135* 135* POTASSIUM mmol/L 4.3 3.9 4.6 4.6 CHLORIDE mmol/L 99 97* 97* 98 CO2 mmol/L 32* 33* 31 28 BUN mg/dL 23 26* 21 23 CREATININE mg/dL 0.98 1.30* 1.06 1.23* GLUCOSE mg/dL 131* 214* 119* 119* MAGNESIUM mg/dL -- -- 2.3 2.2 CALCIUM mg/dL 9.1 9.0 9.2 8.9 PHOSPHORUS mg/dL -- -- -- 5.2* Results from last 7 days Lab Units 07/06/23 0238 AST U/L 17 ALT U/L 13 ALK PHOS U/L 47 BILIRUBIN TOTAL mg/dL 0.5 Results from last 7 days Lab Units 07/02/23 1115 POCT GLUCOSE mg/dL 117* Historical Values: (Includes values prior to this admission) Lab Results Component Value Date TSH 4.25 07/06/2023 HDL 48 07/06/2023 LDL 95 07/06/2023 No results found for: [id number] , IRON , TIBC , C3 , C4 , WENDI , CANCA , ASO , PSA , CEA , CA125 , CA199 , AFP , CA153 Imaging ECG [address] & Marked T wave abnormality, consider anterolateral ischemia Prolonged QT Abnormal ECG When compared with ECG of 06-JUL-2023 14:34, T wave inversion less evident in Lateral Confirmed by Yoan GRIJALVA, SAMECaitlin Rainey ([id number]) on 07/08/2023 12:23:36 PM Discharge Planning TBD Signed Jayden Haider MD MS4 [facility] 07/09/2023 11: (more content not included)... [facility] 07-08-2023 Note ---- Attestation signed by Kiera Grijalva MD at 07/08/2023 1:35 PM I personally saw and examined the patient on the same date of service as resident/fellow Dr. Carroll. I discussed the findings and therapeutic plan with the resident/fellow Dr. Carroll. I agree with the documentation, except for any edits/updates below. Teaching Physician's Revisions: None ---- Cardiology Progress Note Subjective No acute events overnight. Patient remains in junctional rhythm. Vitally stable. No chest pain, dyspnea, dizziness, syncope. Objective Objective: Patient Vitals for the past 24 hrs: BP Temp Temp src Pulse Resp SpO2 Weight 07/08/23 0802 84/55 36.4 ???C (97.5 ???F) [facility] 67 21 98 % -- 07/08/23 0801 103/63 -- -- 63 -- -- -- 07/08/23 0800 99/75 -- -- 63 -- -- -- 07/08/23 0502 -- -- -- -- -- -- 70.9 kg (156 lb 6.4 oz) 07/08/23 0430 105/65 -- -- 61 15 95 % -- 07/08/23 0005 88/61 36.4 ???C (97.5 ???F) 61 26 -- -- 07/07/232024 88/53 36.8 ???C (98.2 ???F) Temporal 65 17 92 % -- 07/07/23 1055 90/60 36.6 ???C (97.9 ???F) 65 15 94 % -- Physical Examination: GENERAL: AOx3, in no acute distress. HEAD: Atraumatic, normocephalic. EYES: IZABELLA, EOMI. NECK: No JVD present. CARDIAC: RRR. No murmur, rubs, or gallops. RESPIRATORY: CTAB, no increased effort of breathing. ABDOMEN: Soft, nontender, nondistended. EXTREMITIES: No lower extremity edema, peripheral pulses are 2+ bilaterally. NEURO: No focal deficits Relevant Lab Results Encounter Date: 07/06/23 ECG 12 lead Result Value Ventricular Rate 63 QRS DURATION 86 QT Interval 466 QTC CALCULATION(BAZETT) 476 R-[place] 34 T Wave [place] [address] & Marked T wave abnormality, consider anterolateral ischemia Prolonged QT Abnormal ECG When compared with ECG of 06-JUL-2023 14:34, T wave inversion less evident in Lateral Lab Results Component Value Date CKTOTAL 36.0 07/06/2023 TROPONINI 0.12 (HH) 07/06/2023 Complete Echo (TTE) w/wo Imaging Agent, Strain, 3D, Bubble Study Result Date: 06/29/2023 1 1 [facility] Heart Station [address] [place] [address] [phone] (fax) Echocardiogram-[facility] Name: VIVIAN VANN Study Date: 06/29/2023 12:30 PM B/P: 135 mmHg/89 mmHg HR: Date of : 1960 Location: [facility] Height: 67 in. Age: 63 year(s) Patient Room: 3120 Weight: 166 lb. Gender: Female Patient Status: InPt BSA: 1.87 m2 Indication: Chest Pain Examination: Echocardiogram (Complete) Image Quality: Fair Patient Consent: Procedure explained to patient Conclusions Left Ventricle: The left ventricle is normal size. Global left ventricular systolic function is normal. The EF is 60 % visually. Left ventricular wall thickness is normal. No regional wall motion abnormality. Right Ventricle: The right ventricle is normal in size. Normal right ventricular systolic function. Doppler studies suggest mildly elevated right sided pressures. Left Atrium: The left atrium is mildly enlarged. Measurements Left Ventricle Label Value Normal Value LVOT PGmax 7 mmHg LVEF visual 60 % LVDd, 2D 4.43 cm (3.9cm - 5.3cm) LVDs, 2D 3.32 cm (2.1cm - 4cm) IVSd, 2D 0.88 cm (0.6cm - 1.1cm) LVPWd, 2D 1.4 cm (0.6cm - 0.9cm) LV Mass, 2D ASE 179.62 g LV Mass Index, 2D ASE 96.1 g/m?? (44g/m?? - 88.4g/m??) RWT, MM 0.63 (0 - 0.42) LVSVI, 2D 23.5 ml/m2 Right Ventricle Label Value Normal Value RVDd, 2D 3.08 cm (1.9cm - 3.8cm) TAPSE 1.94 cm Left Atrium Label Value Normal Value LA Volume, BP 71 ml (22ml - 52ml) LAESV index, BP 38 ml/m?? Right Atrium Label Value Normal Value RA Area 13.6 cm?? Aortic Valve Label Value Normal Value AV DVI 0.77 Mitral Valve Label Value Normal Value MV E Vmax 0.85 m/s MV A Vmax 0.44 m/s MV E/A 1.93 MV E/E' lateral 12.1 MV E' lateral 0.07 m/s Tricuspid Valve Label Value Normal Value RA Pressure 3 mmHg RVSP 37 mmHg TR Vmax 2.92 m/s Aorta Label Value Normal Value AoRoot, 2D 2.3 cm (1.4cm - 3.8cm) Valvular Assessment LVOT 0.7 - 1.1 m/sec Aortic Valve 1.0 - 1.7 m/sec Mitral Valve 0.6 - 1.3 m/sec Tricuspid Valve 0.3 - 0.7 m/sec Pulmonic Valve 0.6 - 0.9 m/sec Regurgitation No Mild Mild No Max Velocity 1.30 m/sec 1.69 m/s 0.85 m/sec 0.94 m/s Max Gradient 11.00 mmHg 4.00 mmHg Findings Left Ventricle: The left ventricle is normal size. Global left ventricular systolic function is normal. The EF is 60 % visually. Left ventricular wall thickness is normal. No regional wall motion abnormality. Right Ventricle: The right ventricle is normal in size. Normal right ventricular systolic function. Doppler studies suggest mildly elevated right sided pressures. Left Atrium: The left atrium is mildly enlarged. Right Atrium: The right atrium is normal in size. Mitral Valve: The mitr (more content not included)... [facility] 07-08-2023 Note Hospital Medicine Daily Progress Note - 07/08/2023 8:42 AM; Room: [facility]/3120- Admission: 07/06/2023 12:25 AM; Length of stay: 2 days THE HOSPITALIST TEAM PREFERS TO USE [employer] CHAT FOR COMMUNICATION 7AM-7PM. IF I DO NOT RESPOND WITHIN 15 MINUTES, PLEASE PAGE ME/CALL THROUGH THE OVEN OPERATOR. FROM 7PM-7AM, PLEASE PAGE [phone](COVR) Code Status: Full Code Barriers to Discharge: Bradycardia Expected Discharge Date: PPM planned tomorrow Discharge Destination: home Subjective No issue overnight. Denies any N/V/D or other concerns or complaints. low systolics with positional change and no symptoms on performing orthostatics. Physical Exam Visit Vitals BP 84/55 (BP Location: Right arm) Comment: standing Pulse 67 Temp 36.4 ???C (97.5 ???F) (Temporal) Resp 21 Intake/Output Summary (Last 24 hours) at 07/08/2023 0842 Last data filed at 07/08/2023 0502 Gross per 24 hour Intake 1300 ml Output 200 ml Net 1100 ml Physical Exam Constitutional: General: She is not in acute distress. Appearance: Normal appearance. HENT: Head: Normocephalic and atraumatic. Right Ear: Tympanic membrane normal. Left Ear: Tympanic membrane normal. Nose: Nose normal. Mouth/Throat: Mouth: Mucous membranes are moist. Pharynx: Oropharynx is clear. Eyes: Extraocular Movements: Extraocular movements intact. Pupils: Pupils are equal, round, and reactive to light. Cardiovascular: Rate and Rhythm: Normal rate and regular rhythm. Pulses: Normal pulses. Heart sounds: Normal heart sounds. Pulmonary: Effort: Pulmonary effort is normal. No respiratory distress. Breath sounds: Normal breath sounds. No wheezing. Abdominal: General: Abdomen is flat. Palpations: Abdomen is soft. Musculoskeletal: General: Normal range of motion. Cervical back: Normal range of motion and neck supple. Right lower leg: No edema. Left lower leg: No edema. Skin: General: Skin is warm and dry. Neurological: General: No focal deficit present. Mental Status: She is alert and oriented to person, place, and time. Psychiatric: Behavior: Behavior normal. Thought Content: Thought content normal. Estimated body mass index is 23.98 kg/m??? as calculated from the following: Height as of this encounter: 1.72 m (5' 7.72 ). Weight as of this encounter: 70.9 kg (156 lb 6.4 oz). Active Inpatient Problems Principal Problem: Bradycardia Assessment and Plan Junctional rhythm on EKG, EP planning PPM tomorrow Hypotension- Hold diuretics today. Will give small bolus. Monitor, CAD s/p stent placement- on SAPT w ASA, continue HFpEF s/p RHC- Hold Lasix/Faxiga, hold BB 2/2 intermittent hypotension NSTEMI-suspect Type II, supportive monitoring, recent cath reviewed COPD-not in exacerbation Anxiety- cont home regimen. Sciatica-supportive management, lidocaine patch. Scheduled Meds ALPRAZolam, 1 mg, oral, BID BETA aspirin, 81 mg, oral, Daily atorvastatin, 80 mg, oral, Daily busPIRone, 10 mg, oral, BID dapagliflozin propanediol, 10 mg, oral, Daily furosemide, 40 mg, oral, Daily gabapentin, 300 mg, oral, TID lidocaine, 1 patch, topical (top), Daily pantoprazole, 40 mg, oral, Daily before breakfast spironolactone, 25 mg, oral, Daily traZODone, 50 mg, oral, Nightly Pertinent Investigations Hematology: Results from last 7 days Lab Units 07/08/23 0508 07/07/238 07/06/23 0238 WBC AUTO 10*3/uL 12.46* 15.03* 14.42* HEMOGLOBIN g/dL 12.1 12.4 12.6 HEMATOCRIT % 37.9 38.8 39.0 MCV fL 87.9 87.4 86.5 PLATELETS AUTO 10*3/uL 301 300 321 INR -- -- 1.00 Chemistry: Results from last 7 days Lab Units 07/08/23 0508 07/07/23 0418 07/06/23 0238 SODIUM mmol/L 136 135* 135* POTASSIUM mmol/L 3.9 4.6 4.6 CHLORIDE mmol/L 97* 97* 98 CO2 mmol/L 33* 31 28 BUN mg/dL 26* 21 23 CREATININE mg/dL 1.30* 1.06 1.23* GLUCOSE mg/dL 214* 119* 119* MAGNESIUM mg/dL -- 2.3 2.2 CALCIUM mg/dL 9.0 9.2 8.9 PHOSPHORUS mg/dL -- -- 5.2* Results from last 7 days Lab Units 07/06/23 0238 AST U/L 17 ALT U/L 13 ALK PHOS U/L 47 BILIRUBIN TOTAL mg/dL 0.5 Results from last 7 days Lab Units 07/02/23 1115 07/02/23 0737 07/01/23 2158 07/01/23 1616 07/01/23 1119 POCT GLUCOSE mg/dL 117* 110* 132* 106* 121* Historical Values: (Includes values prior to this admission) Lab Results Component Value Date TSH 4.25 07/06/2023 HDL 48 07/06/2023 LDL 95 07/06/2023 No results found for: [id number] , IRON , TIBC , C3 , C4 , WENDI , CANCA , ASO , PSA , CEA , CA125 , CA199 , AFP , CA153 Imaging ECG [address] & Marked T wave abnormality, consider anterolateral ischemia Prolonged QT Abnormal ECG When compared with ECG of 06-JUL-2023 14:34, T wave inversion less evident in Lateral Discharge Planning TBD Signed Jayden Haider MD MS4 [facility] 07/08/2023 8:42 AM [facility] 07-07-2023 Note ---- Attestation signed by Kiera Grijalva MD at 07/07/2023 2:28 PM I personally saw and examined the patient on the same date of service as resident/fellow Dr. Carroll. I discussed the findings and therapeutic plan with the resident/fellow Dr. Carroll. I agree with the documentation, except for any edits/updates below. Teaching Physician's Revisions: None ---- Cardiology Progress Note Subjective Patient seen and examined at the bedside this morning. She does not complain of any SOB, chest pain or pedal swelling. Telemetry shows patient in persistent junctional rhythm. Objective Objective: Patient Vitals for the past 24 hrs: BP Temp Temp src Pulse Resp SpO2 Height Weight 07/07/23 0835 96/59 36.3 ???C (97.3 ???F) Temporal 61 17 98 % 1.72 m (5' 7.72 ) 70.1 kg (154 lb 8.7 oz) 07/07/23 0800 95/59 36.3 ???C (97.3 ???F) Temporal 61 17 98 % -- -- 07/07/23 0502 -- -- -- -- -- -- -- 70.1 kg (154 lb 9.6 oz) 07/07/23 0421 90/63 36.5 ???C (97.7 ???F) -- 60 16 95 % -- -- 07/07/23 0038 88/57 36.2 ???C (97.2 ???F) -- 62 23 -- -- -- 07/06/231999 101/79 36.3 ???C (97.3 ???F) -- 67 17 91 % -- -- 07/06/23 1833 105/77 -- -- 62 19 100 % -- -- 07/06/23 1725 91/66 36.4 ???C (97.6 ???F) [facility] 64 13 97 % -- -- 07/06/23 1200 103/64 36.7 ???C (98 ???F) Temporal 65 20 93 % -- -- Physical Examination: GENERAL: AOx3, in no acute distress. HEAD: Atraumatic, normocephalic. EYES: IZABELLA, EOMI. NECK: No JVD present. CARDIAC: RRR. No murmur, rubs, or gallops. RESPIRATORY: CTAB, no increased effort of breathing. ABDOMEN: Soft, nontender, nondistended. EXTREMITIES: No lower extremity edema, peripheral pulses are 2+ bilaterally. NEURO: No focal deficits Relevant Lab Results Encounter Date: 07/06/23 ECG 12 lead Result Value Ventricular Rate 65 QRS DURATION 84 QT Interval 434 QTC CALCULATION(BAZETT) 451 R-[place] 23 T Wave [place] [address] & Marked T wave abnormality, consider anterolateral ischemia Abnormal ECG When compared with ECG of 06-JUL-2023 00:53, T wave inversion less evident in Inferior lead Confirmed by Vinay Yoo ([id number]) on 07/06/2023 4:39:48 PM Lab Results Component Value Date CKTOTAL 36.0 07/06/2023 TROPONINI 0.12 () 07/06/2023 Complete Echo (TTE) w/wo Imaging Agent, Strain, 3D, Bubble Study Result Date: 06/29/2023 1 1 [facility] Heart Station [address] [place] [address] [phone] (fax) Echocardiogram-[facility] Name: VIVIAN VANN Study Date: 06/29/2023 12:30 PM B/P: 135 mmHg/89 mmHg HR: Date of : 1960 Location: [facility] Height: 67 in. Age: 63 year(s) Patient Room: 3120 Weight: 166 lb. Gender: Female Patient Status: InPt BSA: 1.87 m2 Indication: Chest Pain Examination: Echocardiogram (Complete) Image Quality: Fair Patient Consent: Procedure explained to patient Conclusions Left Ventricle: The left ventricle is normal size. Global left ventricular systolic function is normal. The EF is 60 % visually. Left ventricular wall thickness is normal. No regional wall motion abnormality. Right Ventricle: The right ventricle is normal in size. Normal right ventricular systolic function. Doppler studies suggest mildly elevated right sided pressures. Left Atrium: The left atrium is mildly enlarged. Measurements Left Ventricle Label Value Normal Value LVOT PGmax 7 mmHg LVEF visual 60 % LVDd, 2D 4.43 cm (3.9cm - 5.3cm) LVDs, 2D 3.32 cm (2.1cm - 4cm) IVSd, 2D 0.88 cm (0.6cm - 1.1cm) LVPWd, 2D 1.4 cm (0.6cm - 0.9cm) LV Mass, 2D ASE 179.62 g LV Mass Index, 2D ASE 96.1 g/m?? (44g/m?? - 88.4g/m??) RWT, MM 0.63 (0 - 0.42) LVSVI, 2D 23.5 ml/m2 Right Ventricle Label Value Normal Value RVDd, 2D 3.08 cm (1.9cm - 3.8cm) TAPSE 1.94 cm Left Atrium Label Value Normal Value LA Volume, BP 71 ml (22ml - 52ml) LAESV index, BP 38 ml/m?? Right Atrium Label Value Normal Value RA Area 13.6 cm?? Aortic Valve Label Value Normal Value AV DVI 0.77 Mitral Valve Label Value Normal Value MV E Vmax 0.85 m/s MV A Vmax 0.44 m/s MV E/A 1.93 MV E/E' lateral 12.1 MV E' lateral 0.07 m/s Tricuspid Valve Label Value Normal Value RA Pressure 3 mmHg RVSP 37 mmHg TR Vmax 2.92 m/s Aorta Label Value Normal Value AoRoot, 2D 2.3 cm (1.4cm - 3.8cm) Valvular Assessment LVOT 0.7 - 1.1 m/sec Aortic Valve 1.0 - 1.7 m/sec Mitral Valve 0.6 - 1.3 m/sec Tricuspid Valve 0.3 - 0.7 m/sec Pulmonic Valve 0.6 - 0.9 m/sec Regurgitation No Mild Mild No Max Velocity 1.30 m/sec 1.69 m/s 0.85 m/sec 0.94 m/s Max Gradient 11.00 mmHg 4.00 mmHg Findings Left Ventricle: The left ventricle is normal size. Global left ventricular systolic function is normal. The EF is 60 % visually. Left ventricular wall thickness is normal. No regional wall motion abnormality. Right Ventricle: (more content not included)... [facility] 07-07-2023 Note Hospital Medicine Daily Progress Note - 07/07/2023 10:19 AM; Room: [address] [place] [address] Admission: 07/06/2023 12:25 AM; Length of stay: 1 days THE HOSPITALIST TEAM PREFERS TO USE EPIC CHAT FOR COMMUNICATION 7AM-7PM. IF I DO NOT RESPOND WITHIN 15 MINUTES, PLEASE PAGE ME/CALL THROUGH THE OVEN OPERATOR. FROM 7PM-7AM, PLEASE PAGE [phone](COVR) Code Status: Full Code Barriers to Discharge: Bradycardia Expected Discharge Date: pending cardiology recommendations Discharge Destination: home Overview Vivian Vann is a 63 y.o. female with PMHx of HTN, A-fib, HFpEF, T2DM, Stent placement in October 2021 and tobacco dependence who presented on 07/06 lightheadedness, dizziness and chest pain. Patient stated that these symptoms appeared last afternoon after a brisk walk. She noticed she was out of breath and sitting did not relieve her symptoms which prompted her visit. The patient described her chest pain as a tightness but denied any radiation. The patient also stated she started experiencing nausea and diaphoresis. The patient stated EMS gave her medication for nausea which after taking all of her symptoms resolved. Patient had a cardiac catheterization (07/02/2023) that showed decompensated heart failure with mean wedge pressure 35mmHG and a TTE (06/29/2023) that showed EF 60%. The patient was instructed to continue home meds but no longer needed to be on DAPT and her Plavix was discontinued. Upon arrival the patient was bradycardiac, she had a BNP 721, and upward trending troponin of 0.12 from 0.06 a week ago. Cardiology was consulted. EKG showed junctional rhythm ST & Marked T wave abnormality Chest X-ray showed no acute pulmonary process Subjective Patient was assessed at bedside and appeared in no acute distress. There was no acute events overnight -Cardiology met with patient and will consult with electrophysiology for evaluation regarding pacemaker placement. -IV diuretics have been held due to patient being euvolemic. -Plavix 75mg daily was ordered Physical Exam Visit Vitals BP 96/59 (BP Location: Right arm, Patient Position: Lying) Pulse 61 Temp 36.3 ???C (97.3 ???F) (Temporal) Resp 17 Intake/Output Summary (Last 24 hours) at 07/07/2023 1019 Last data filed at 07/07/2023 0502 Gross per 24 hour Intake 300 ml Output -- Net 300 ml Physical Exam Constitutional: General: She is not in acute distress. Appearance: Normal appearance. HENT: Head: Normocephalic and atraumatic. Right Ear: Tympanic membrane normal. Left Ear: Tympanic membrane normal. Nose: Nose normal. Mouth/Throat: Mouth: Mucous membranes are moist. Pharynx: Oropharynx is clear. Eyes: Extraocular Movements: Extraocular movements intact. Pupils: Pupils are equal, round, and reactive to light. Cardiovascular: Rate and Rhythm: Normal rate and regular rhythm. Pulses: Normal pulses. Heart sounds: Normal heart sounds. Pulmonary: Effort: Pulmonary effort is normal. No respiratory distress. Breath sounds: Normal breath sounds. No wheezing. Abdominal: General: Abdomen is flat. Palpations: Abdomen is soft. Musculoskeletal: General: Normal range of motion. Cervical back: Normal range of motion and neck supple. Right lower leg: No edema. Left lower leg: No edema. Skin: General: Skin is warm and dry. Neurological: General: No focal deficit present. Mental Status: She is alert and oriented to person, place, and time. Psychiatric: Behavior: Behavior normal. Thought Content: Thought content normal. Estimated body mass index is 23.69 kg/m??? as calculated from the following: Height as of this encounter: 1.72 m (5' 7.72 ). Weight as of this encounter: 70.1 kg (154 lb 8.7 oz). Active Inpatient Problems Principal Problem: Bradycardia Assessment and Plan Junctional rhythm on EKG, await EP input. CAD s/p stent placement- on SAPT w ASA, continue HFpEF s/p RHC-continue Lasix/Faxiga, hold BB NSTEMI-suspect Type II, supportive monitoring, recent cath reviewed COPD-not in exacerbation Anxiety- cont home regimen. Sciatica-supportive management, lidocaine patch. Scheduled Meds ALPRAZolam, 1 mg, oral, BID BETA aspirin, 81 mg, oral, Daily atorvastatin, 80 mg, oral, Daily busPIRone, 10 mg, oral, BID dapagliflozin propanediol, 10 mg, oral, Daily furosemide, 40 mg, oral, Daily gabapentin, 300 mg, oral, TID lidocaine, 1 patch, topical (top), Daily pantoprazole, 40 mg, oral, Daily before breakfast spironolactone, 25 mg, oral, Daily traZODone, 50 mg, oral, Nightly Pertinent Investigations Hematology: Results from last 7 days Lab Units 07/07/23 0418 07/06/23 0238 WBC AUTO 10*3/uL 15.03* 14.42* HEMOGLOBIN g/dL 12.4 12.6 HEMATOCRIT % 38.8 39.0 MCV fL 87.4 86.5 PLATELETS AUTO 10*3/uL 300 321 INR -- 1.00 Chemistry: Results from last 7 days Lab Units 07/07/23 0418 07/06/23 0238 07/02/23 0425 SODIUM mmol/L 135* 135* 135* POTASSIUM mmol/L 4.6 4.6 3.7 CHLORIDE (more content not included)... [facility] 07-06-2023 Note communication receiv ed that Patient stating does not have transportation to return home at discharge At 07/02/2023 discharge, [facility] provided a one-time courtesy taxi cab transportation for Patient to return to her home (Patient[place] residence is 57 [address] [place]-way from [facility] and cost for taxi cab was $146); [facility] is not able to provide another taxi cab. The following information was printed and provided to the Patient to make her own transportation arrangements for once she is medically cleared for discharge: [facility] hospital address is [address] [place] [address] [employer] to ask if non-emergency medical transportation is a covered benefit of the specific plan ([email or web address]-[email or web address]/ohi o/) Taxis in [place] ([email or web address]) [employer] [phone] ([phone]) [employer] [phone] [facility] 07-06-2023 Note 07/06/23 1625 Referral Data 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 No Patient's goal for discharge home Does the patient need discharge transport arranged? (Patient will need to arrange for her transportation needs; typewriter mechanic provided printed information to Pt for local taxi [employer] companies for Pt to consider; [facility] unable to pay for another one-time courtesy taxi cab for 57miles one-way trip) [facility] 07-06-2023 Note 1526 typewriter mechanic attempted to meet with Pt to discuss discharge planning (including Patient will need to arrange her transportation once she is medically cleared to discharge to home); Patient not in bed; unable to complete [id number] 1542 typewriter mechanic attempted to meet with Pt to discuss discharge planning (including Patient will need to arrange her transportation once she is medically cleared to discharge to home); Patient caring for toileting hygiene; unable to complete [id number] [facility] 07-06-2023 Note 07/06/23 1219 Admission Assessment Questions Verify insurance with patient Yes Do you understand medical disease or what brought you into the hospital? Yes Who is your current PCP? Екатерина Robert MD Can I schedule a follow up appointment for you at the time of discharge? No Do you understand why you are taking your current medications? Yes Are you taking your medications as prescribed? Yes Did patient provide teach back? Yes Would you like use our pharmacy [facility] to fill your new medications at the time of Discharge? Yes Does the patient have a director case management assigned to them through their insurance? No Living Arrangement (Current/Prior to Hospitalization) Private residence;Home self care Does the patient have history of HHC or SNF? No Assistive Device Not applicable Patient's goal for discharge home Was patient reminded that goal for discharge is 11am? Yes Does the patient have transportation at discharge? Yes (taxi - may need assistance) Type of Residence/Post Acute Needs Private residence Is PT/OT appropriate? No Is PT/OT ordered? No Is SW consult appropriate? No Is SW consult ordered? No Do you understand the benefits of MyChart? Yes Were you able to send link and activate MyChart? Yes [facility] 07-06-2023 Note ---- Attestation signed by Jayden Haider MD at 07/06/2023 1:28 PM As the teaching physician, I have personally performed or re-performed the history of present illness, physical exam and medical decision making activities of the encounter and verified the medical student's documentation. I made pertinent changes as necessary to ensure accurate documentation. Junctional rhythm on EKG, await EP input. CAD s/p stent placement- on SAPT w ASA, continue HFpEF s/p RHC-continue Lasix/Faxiga, hold BB NSTEMI-suspect Type II, supportive monitoring, recent cath reviewed COPD-not in exacerbation Anxiety- cont home regimen. ---- Hospital Medicine Daily Progress Note - 07/06/2023 11:37 AM; Room: [address] [place] [address] Admission: 07/05/2023 11:50 PM; Length of stay: 1 days THE HOSPITALIST TEAM PREFERS TO USE [employer] FOR COMMUNICATION 7AM-7PM. IF I DO NOT RESPOND WITHIN 15 MINUTES, PLEASE PAGE ME/CALL THROUGH THE OVEN OPERATOR. FROM 7PM-7AM, PLEASE PAGE [phone](COVR) Code Status: Full Code Barriers to Discharge: Bradycardia Expected Discharge Date: TBD Discharge Destination: home Overview Vivian Vann is a 63 y.o. female with PMHx of HTN, A-fib, HFpEF, T2DM, Stent placement in October 2021 and tobacco dependence who presented on 07/06 lightheadedness, dizziness and chest pain. Patient stated that these symptoms appeared last afternoon after a brisk walk. She noticed she was out of breath and sitting did not relieve her symptoms which prompted her visit. The patient described her chest pain as a tightness but denied any radiation. The patient also stated she started experiencing nausea and diaphoresis. The patient stated EMS gave her medication for nausea which after taking all of her symptoms resolved. Patient had a cardiac catheterization (07/02/2023) that showed decompensated heart failure with mean wedge pressure 35mmHG and a TTE (06/29/2023) that showed EF 60%. The patient was instructed to continue home meds but no longer needed to be on DAPT and her Plavix was discontinued. Upon arrival the patient was bradycardiac, she had a BNP 721, and upward trending troponin of 0.12 from 0.06 a week ago. Cardiology was consulted. EKG showed junctional rhythm ST & Marked T wave abnormality Chest X-ray showed no acute pulmonary process Subjective Patient was assessed at bedside and appeared in no acute distress. There was no acute events overnight -Cardiology met with patient and will consult with electrophysiology for evaluation regarding pacemaker placement. -IV diuretics have been held due to patient being euvolemic. -Plavix 75mg daily was ordered Physical Exam Visit Vitals BP 99/65 Pulse 57 Temp 36.5 ???C (97.7 ???F) (Temporal) Resp 19 Intake/Output Summary (Last 24 hours) at 07/06/2023 1137 Last data filed at 07/06/2023 1000 Gross per 24 hour Intake 446.85 ml Output 300 ml Net 146.85 ml Physical Exam Constitutional: General: She is not in acute distress. Appearance: Normal appearance. HENT: Head: Normocephalic and atraumatic. Right Ear: Tympanic membrane normal. Left Ear: Tympanic membrane normal. Nose: Nose normal. Mouth/Throat: Mouth: Mucous membranes are moist. Pharynx: Oropharynx is clear. Eyes: Extraocular Movements: Extraocular movements intact. Pupils: Pupils are equal, round, and reactive to light. Cardiovascular: Rate and Rhythm: Normal rate and regular rhythm. Pulses: Normal pulses. Heart sounds: Normal heart sounds. Pulmonary: Effort: Pulmonary effort is normal. No respiratory distress. Breath sounds: Normal breath sounds. No wheezing. Abdominal: General: Abdomen is flat. Palpations: Abdomen is soft. Tenderness: There is abdominal tenderness. Musculoskeletal: General: Normal range of motion. Cervical back: Normal range of motion and neck supple. Right lower leg: No edema. Left lower leg: No edema. Skin: General: Skin is warm and dry. Neurological: General: No focal deficit present. Mental Status: She is alert and oriented to person, place, and time. Psychiatric: Behavior: Behavior normal. Thought Content: Thought content normal. Comments: Patient expressed feeling anxious and was given Xanax 1mg Estimated body mass index is 23.8 kg/m??? as calculated from the following: Height as of 06/29/23: 1.72 m (5' 7.72 ). Weight as of this encounter: 70.4 kg (155 lb 3.2 oz). Active Inpatient Problems Principal Problem: Bradycardia Assessment and Plan History of CAD s/p stent (October 2021) HFpEF s/p RHC -elevated wedge pressure 35 mmHg (06/2023) Symptomatic Bradycardia in the setting of junctional rhythm on EKG HLD COPD Tobacco and Marijuana dependence -Continue Aspirin and High-Intensity Statin -Continue Farxiga and Aldactone -Trending Troponin -Continue home medi (more content not included)... [facility] 07-06-2023 Note . Hospital Medicine History and Physical 07/06/2023 1:19 AM THE HOSPITALIST TEAM PREFERS TO USE [employer] FOR COMMUNICATION 7AM-7PM. IF I DO NOT RESPOND WITHIN 15 MINUTES, PLEASE PAGE ME/CALL THROUGH THE OVEN OPERATOR. FROM 7PM-7AM, PLEASE PAGE [phone](COVR) Chief Complaint No chief complaint on file. History of Present Illness Vivian Vann is an 63 y.o. female who came from home with CP. This is a 63 years old female lady with a medical history of hypertension, tobacco smoking, A-fib, CHF. Came into the [facility] as a direct admit transfer from outside facility for chest pain originally which woke her up this a.m. Later the pain resolved and the patient was bradycardic with A-fib with slow ventricular response for which they sent her here for possible pacemaker placement. She had history of coronary artery disease with a stent placed a few years ago when she was taking the Lasix at home. The lab was showing troponin borderline elevation in the outside facility for which we repeated a full set of lab including CBC, CMP, magnesium, phosphorus, troponin and BNP with chest x-ray and EKG and telemetry monitoring and n.p.o. order past midnight with a consult to the cardiology team for any further recommendation and possible intervention. Review of System and Physical Exam Heart Rate: [63] 63 Resp: [17] 17 BP: (94)/(66) 94/66 Physical Exam Vitals and nursing note reviewed. Constitutional: Appearance: Normal appearance. She is normal weight. HENT: Head: Normocephalic. Right Ear: Tympanic membrane, ear canal and external ear normal. Left Ear: Ear canal and external ear normal. Nose: Nose normal. Mouth/Throat: Mouth: Mucous membranes are moist. Pharynx: Oropharynx is clear. Eyes: Conjunctiva/sclera: Conjunctivae normal. Pupils: Pupils are equal, round, and reactive to light. Cardiovascular: Rate and Rhythm: Bradycardia present. Rhythm irregular. Abdominal: General: Bowel sounds are normal. Musculoskeletal: General: Normal range of motion. Cervical back: Neck supple. Skin: General: Skin is warm. Capillary Refill: Capillary refill takes 2 to 3 seconds. Neurological: General: No focal deficit present. Mental Status: She is alert. Mental status is at baseline. Psychiatric: Thought Content: Thought content normal. Judgment: Judgment normal. Review of Systems All other systems reviewed and are negative. Problem List Patient Active Problem List Diagnosis Date Noted Bradycardia 07/06/2023 NSTEMI (non-ST elevated myocardial infarction) ([facility]) 06/29/2023 Other forms of angina pectoris 06/29/2023 Hypomagnesemia 06/29/2023 Acute midline low back pain without sciatica 06/29/2023 Coronary arteriosclerosis 11/24/2021 Hyperlipidemia 11/24/2021 Type 2 diabetes mellitus ([facility]) 11/24/2021 Acute non-ST segment elevation myocardial infarction ([facility]) 11/24/2021 Cigarette smoker 11/24/2021 Assessment and Plan #A-fib with slow ventricular response #Bradycardia #Non-STEMI #History of CAD artery disease/s/p stenting -Admitting to the stepdown unit -Telemetry monitoring -Trending 3 sets of troponin -Repeating EKG -N.p.o. past midnight -Consult cardiology -Heparin drip initiated gtt. #Hyperlipidemia -Continued home medication atorvastatin 80 #Diabetes type 2: -Insulin sign scale #Cigarette smoking history #Smoking history #GI prophylaxis: PPI A fib with bradycardia VTE Prophylaxis: IV heparin ----- Focus of this inpatient stay will remain on problems that need acute care setting for care. We will review available studies and will order additional labs, imaging and other studies as appropriate. As needed medicines are ordered as appropriate. VTE Prophylaxis will be ordered as appropriate. Please see above for management plan for individual hospital problems. Home medications are reviewed and will be continued as appropriate. Patient will be continued to be followed during this hospital stay by a member of [facility]. Past Medical History No past medical history on file. Past Surgical History No past surgical history on file. Social History Social History Socioeconomic History Marital status: Spouse name: Not on file Number of children: Not on file Years of education: Not on file Highest education level: Not on file Occupational History Not on file Tobacco Use Smoking status: Every Day Packs/day: 1.00 Years: 41.00 Additional pack years: 0.00 Total pack years: 41.00 Types: Cigarettes Start date: 1982 Smokeless tobacco: Not on file Substance and Sexual Activity Alcohol use: Not on file Drug use: Yes Types: Marijuana Sexual activity: Not on file Other Topics Concern Not on file Social History Narrative Not on file Social Determinants of Health Financial Resource Strain: High Risk (07/05/2023) Overall Financial Resource Strain (CARDIA) Difficulty of (more content not included)... [facility] 07-05-2023 Evaluation + Plan note Extrac florinda from: Title:ED Note Author:Cher Perkins PA-C Date:07/05/23 1. Atrial fibrillation with slow ventricular response (I48.91: Unspecified atrial fibrillation) 2. Elevated troponin (R79.89: Other specified abnormal findings of blood chemistry) 3. Tobacco abuse (Z72.0: Tobacco use) 4. CHF (congestive heart failure) (I50.9: Heart failure, unspecified) Orders: diphenhydrAMINE, 25 mg = 0.5 mL, Injection, IV Push, Once, Stop date 07/05/23 15:20:00 EST, STAT, Start date 07/05/23 15:20:00 EST, 07/05/23 15:20:00 EST metoclopramide, 10 mg = 2 mL, Injection, IV Push, Once, Stop date 07/05/23 15:20:00 EST, STAT, Start date 07/05/23 15:20:00 EST, 07/05/23 15:20:00 EST Sodium Chloride 0.9% intravenous solution, 500 mL, Soln-IV, IV, Once, Stop date 07/05/23 15:19:00 EST, STAT, Start date 07/05/23 15:19:00 EST, 500 mL/hr, Infuse over 1, hour(s) B-Type Natriuretic Peptide Basic Metabolic Panel CBC w/ Auto Diff Digoxin Level Drug Screen Urine ED Cardiac Monitoring eGFR Extra Gardner Tube Hepatic Function Panel Lipase Level Magnesium Level Oxygen Saturation Oxygen Therapy PT & PTT Saline Lock Insert Transfer Patient to Troponin 0 Hr. Troponin 3 Hr. Troponin 6 Hr. Troponin 9 Hr. UA With Cult Reflex XR Chest Single View Diagnostic Tests Pending * UA With Cult Reflex 07/05/23 * Drug Screen Urine 07/05/23 [facility]02-19-2024 NotePatient admitted to the hospital for: NSTEMI. Review of the last noted chart Echo from 06/29/2023 reports: EF 60%. Reported echo result does not qualify for Cardiac Rehab services per [facility] eligibility criteria for CHF. 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 services) Type of Residence/Post Acute Needs Private residence Will patient need Precert for Post Acute needs? No Patient's goal for discharge home RucCC screened; Pt declining HHC, Consult resolved 1340 Communication received that Pt needing transportation to home since was transferred here from [facility], does not drive, lives alone, does not have friends or family who can transport ([phone]) PC to [employer]; from [address] [place] [address] to [address] [place] [address] will be $146 [employer] Let Off Operator provided verbal estimate to supervisor records change, verbal approval from supervisor records change [phone] taxi cab transportation arranged; bedside RN notified Confirmation #: [id number] Passenger: VIVIAN VANN Phone Number: [phone] Pickup Date/Time: 07/02/2023 3:00 PM Pickup Address: [facility], [address] [place] [address], [place], [address] Drop Off Address: [address] [place] [address]. Arlene Notes: please pickup at [facility]02-19-2024 Note07/02/23 1017 Admission Assessment Questions Verify insurance with patient Yes Do you understand medical disease or what brought you into the hospital? Yes Who is your current PCP? Екатерина Robert MD Can I schedule a follow up appointment for you at the time of discharge? No Do you understand why you are taking your current medications? Yes Are you taking your medications as prescribed? Yes Did patient provide teach back? Yes Would you like use our pharmacy iMeds to fill your new medications at the time of Discharge? Yes Does the patient have a director case management assigned to them through their insurance? No Living Arrangement (Current/Prior to Hospitalization) Private residence;Home self care (2 story house w/bed and bath on first floor. 3 entry stairs w/railing) Does the patient have history of HHC or SNF? No Assistive Device Not applicable Patient's goal for discharge home Was patient reminded that goal for discharge is 11am? Yes Does the patient have transportation at discharge? No (patient needs assistance) Type of Residence/Post Acute Needs Private residence Is PT/OT appropriate? Yes Is PT/OT ordered? Yes Is SW consult appropriate? Yes Is SW consult ordered? Yes Do you understand the benefits of MyChart? Yes Were you able to send link and activate MyChart? [facility]02-19-2024 Note Attestation signed by Merritt Guerrero MD at 07/02/2023 8:53 PM I personally saw and examined the patient on the same date of service as resident/fellow Isabella Knutson. I discussed the findings and therapeutic plan with the resident/fellow Isabella Knutson. I agree with the documentation, except for any edits/updates below. Teaching Physician's Revisions: none Cardiology Progress Note Subjective Patient seen and examined at the bedside this morning. no acute events overnight no new complaints she is doing better she feels her breathing is improving she is able to lie flat in bed completely comfortable. Urine output 1.4 L in last 24 hour. BP still on lower side 87/57. Objective Objective: Patient Vitals for the past 24 hrs: BP Temp Temp src Pulse Resp SpO2 Weight 07/02/23 0815 -- 35.8 ???C (96.4 ???F) Temporal -- -- -- -- 07/02/23 0800 109/76 -- -- 57 (!) 8 92 % -- 07/02/23 0600 -- -- -- -- -- -- 70.9 kg (156 lb 4.7 oz) 07/02/23 0450 87/57 36.5 ???C (97.7 ???F) Temporal 56 12 91 % -- 07/02/23 0010 92/63 36.4 ???C (97.5 ???F) Temporal 57 13 96 % -- 07/01/232009 -- -- -- -- -- 92 % -- 07/01/232008 111/67 36.5 ???C (97.7 ???F) Temporal 58 15 -- -- Physical Examination: GENERAL: AOx3, in no acute distress. HEAD: Atraumatic, normocephalic. EYES: IZABELLA, EOMI. NECK: JVD not present CARDIAC: RRR. No murmur, rubs, or gallops. RESPIRATORY: CTAB, no increased effort of breathing. ABDOMEN: Soft, nontender, nondistended. EXTREMITIES: No lower extremity edema NEURO: No focal deficits Relevant Lab Results Encounter Date: 06/29/23 ECG 12 lead Result Value Ventricular Rate 61 Atrial Rate 61 MO Interval 150 QRS DURATION 88 QT Interval 476 QTC CALCULATION(BAZETT) 479 P [place] 68 R-[place] 25 T Wave [place] 128 Impression Normal sinus rhythm Right atrial enlargement ST & T wave abnormality, consider anterolateral ischemia Prolonged QT Abnormal ECG When compared with ECG of 02-NOV-2021 07:18, T wave inversion more evident in Lateral Confirmed by Yoan QUIROGA, L.S. (2) on 06/29/2023 6:26:42 PM Lab Results Component Value Date TROPONINI 0.06 (H) 06/29/2023 Complete Echo (TTE) w/wo Imaging Agent, Strain, 3D, Bubble Study Result Date: 06/29/2023 1 1 [facility] Heart Station [address] [place] [address] [phone] (fax) Echocardiogram-[facility] Name: VIVIAN VANN Study Date: 06/29/2023 12:30 PM B/P: 135 mmHg/89 mmHg HR: Date of : 1960 Location: [facility] Height: 67 in. Age: 63 year(s) Patient Room: 3120 Weight: 166 lb. Gender: Female Patient Status: InPt BSA: 1.87 m2 Indication: Chest Pain Examination: Echocardiogram (Complete) Image Quality: Fair Patient Consent: Procedure explained to patient Conclusions Left Ventricle: The left ventricle is normal size. Global left ventricular systolic function is normal. The EF is 60 % visually. Left ventricular wall thickness is normal. No regional wall motion abnormality. Right Ventricle: The right ventricle is normal in size. Normal right ventricular systolic function. Doppler studies suggest mildly elevated right sided pressures. Left Atrium: The left atrium is mildly enlarged. Measurements Left Ventricle Label Value Normal Value LVOT PGmax 7 mmHg LVEF visual 60 % LVDd, 2D 4.43 cm (3.9cm - 5.3cm) LVDs, 2D 3.32 cm (2.1cm - 4cm) IVSd, 2D 0.88 cm (0.6cm - 1.1cm) LVPWd, 2D 1.4 cm (0.6cm - 0.9cm) LV Mass, 2D ASE 179.62 g LV Mass Index, 2D ASE 96.1 g/m?? (44g/m?? - 88.4g/m??) RWT, MM 0.63 (0 - 0.42) LVSVI, 2D 23.5 ml/m2 Right Ventricle Label Value Normal Value RVDd, 2D 3.08 cm (1.9cm - 3.8cm) TAPSE 1.94 cm Left Atrium Label Value Normal Value LA Volume, BP 71 ml (22ml - 52ml) LAESV index, BP 38 ml/m?? Right Atrium Label Value Normal Value RA Area 13.6 cm?? Aortic Valve Label Value Normal Value AV DVI 0.77 Mitral Valve Label Value Normal Value MV E Vmax 0.85 m/s MV A Vmax 0.44 m/s MV E/A 1.93 MV E/E' lateral 12.1 MV E' lateral 0.07 m/s Tricuspid Valve Label Value Normal Value RA Pressure 3 mmHg RVSP 37 mmHg TR Vmax 2.92 m/s Aorta Label Value Normal Value AoRoot, 2D 2.3 cm (1.4cm - 3.8cm) Valvular Assessment LVOT 0.7 - 1.1 m/sec Aortic Valve 1.0 - 1.7 m/sec Mitral Valve 0.6 - 1.3 m/sec Tricuspid Valve 0.3 - 0.7 m/sec Pulmonic Valve 0.6 - 0.9 m/sec Regurgitation No Mild Mild No Max Velocity 1.30 m/sec 1.69 m/s 0.85 m/sec 0.94 m/s Max Gradient 11.00 mmHg 4.00 mmHg Findings Left Ventricle: The left ventricle is normal size. Global left ventricular systolic function is normal. The EF is 60 % visually. Left ventricular wall thickness is normal. No regional wall motion abnormality. Right Ventricle: The right ventricle is normal in size. Normal right ventricular systolic function. Dop (more content not included)...[facility]02-18-2024 NoteHospital Medicine Daily Progress Note - 07/01/2023 12:00 PM; Room: [address] [place] [address] Admission: 06/29/2023 11:04 AM; Length of stay: 2 days THE HOSPITALIST TEAM PREFERS TO USE EPIC CHAT FOR COMMUNICATION 7AM-7PM. IF I DO NOT RESPOND WITHIN 15 MINUTES, PLEASE PAGE ME/CALL THROUGH THE OVEN OPERATOR. FROM 7PM-7AM, PLEASE PAGE [phone](COVR) Code Status: Full Code Barriers to Discharge: CHF Expected Discharge Date: 1 - 2 days Discharge Destination: home Overview Patient is seen for evaluation and management of SOB. Subjective Reports feeling better today Reports cardiolgy did see her today and anticipate she may be ready tomorrow Physical Exam Visit Vitals BP 112/70 Pulse 52 Temp 36.6 ???C (97.9 ???F) (Temporal) Resp 15 Intake/Output Summary (Last 24 hours) at 07/01/2023 1200 Last data filed at 07/01/2023 0832 Gross per 24 hour Intake 960 ml Output 1100 ml Net -140 ml Physical Exam Constitutional: Appearance: Normal appearance. HENT: Head: Normocephalic. Mouth/Throat: Mouth: Mucous membranes are moist. Eyes: Pupils: Pupils are equal, round, and reactive to light. Cardiovascular: Rate and Rhythm: Normal rate. Pulmonary: Effort: Pulmonary effort is normal. Abdominal: General: Abdomen is flat. Musculoskeletal: General: Normal range of motion. Skin: General: Skin is warm. Neurological: General: No focal deficit present. Mental Status: She is alert. Psychiatric: Mood and Affect: Mood normal. Estimated body mass index is 24.26 kg/m??? as calculated from the following: Height as of this encounter: 1.72 m (5' 7.72 ). Weight as of this encounter: 71.8 kg (158 lb 3.2 oz). Active Inpatient Problems Principal Problem: NSTEMI (non-ST elevated myocardial infarction) ([facility]) Active Problems: Hyperlipidemia Type 2 diabetes mellitus ([facility]) Other forms of angina pectoris Hypomagnesemia Acute midline low back pain without sciatica Assessment and Plan NSTEMI - s/p cardiac cath 06/29, Left main: patent. LAD: proximal LAD has 30% stenosis. The previously placed stent in the mid LAD is widely patent. The first diagonal branch has proximal 30% stenosis. Remainder of the LAD is patent. LCX: The circumflex is a moderate size vessel and is patent. RCA: The RCA is a large vessel and is dominant the RCA is widely patent. The PDA and DUNCAN are both large vessel and are both widely patent Acute on chronic HFpEF NYHA class 2 - right heart catheterization shows severely decompensated heart failure with mean wedge pressure 35 mmHg - echo done shows The left ventricle is normal size. Global left ventricular systolic function is normal. The EF is 60 % visually. Left ventricular wall thickness is normal. No regional wall motion abnormality. Right Ventricle: The right ventricle is normal in size. Normal right ventricular systolic function. Doppler studies suggest mildly elevated right sided pressures. -lasix 40mg IV bid - GDMT per cards CAD - cont home meds DMII noninsulin dependent - ISS Chronic pain -resume home meds Anxiety - buspar 10mg po bid - xanax 1 mg po bid prn GERD - protonix Tobacco abuse - smoking cessation Scheduled Meds aspirin, 81 mg, oral, Daily atorvastatin, 80 mg, oral, Nightly busPIRone, 10 mg, oral, BID dapagliflozin propanediol, 10 mg, oral, Daily furosemide, 40 mg, intravenous, q12h gabapentin, 300 mg, oral, TID insulin aspart, 0-5 Units, subcutaneous, Before meals & nightly pantoprazole, 40 mg, oral, Daily before breakfast spironolactone, 25 mg, oral, Daily traZODone, 50 mg, oral, Nightly Oxygen Therapy, Pertinent Investigations Hematology: Results from last 7 days Lab Units 06/30/23 0535 06/29/23 1153 WBC AUTO 10*3/uL 10.22 9.91 HEMOGLOBIN g/dL 11.5* 12.5 HEMATOCRIT % 35.7* 39.3 MCV fL 87.3 89.3 PLATELETS AUTO 10*3/uL 219 218 INR -- 0.98 Chemistry: Results from last 7 days Lab Units 07/01/23 0437 06/29/23 2122 06/29/23 1736 06/29/23 1153 SODIUM mmol/L 139 137 -- 140 POTASSIUM mmol/L 3.7 4.1 -- 4.2 CHLORIDE mmol/L 98 102 -- 107 CO2 mmol/L 35* 25 -- 27 BUN mg/dL 27* 14 -- 10 CREATININE mg/dL 1.08 1.04 -- 1.01 GLUCOSE mg/dL 116* 268* -- 148* MAGNESIUM mg/dL -- 2.1 2.2 1.7* CALCIUM mg/dL 8.3* 8.2* -- 8.6 PHOSPHORUS mg/dL -- -- -- 3.5 Results from last 7 days Lab Units 06/29/23 1153 AST U/L 23 ALT U/L 23 ALK PHOS U/L 77 BILIRUBIN TOTAL mg/dL 0.4 Results from last 7 days Lab Units 07/01/23 1119 07/01/23 0706 06/30/23 2040 06/30/23 1610 06/30/23 1152 POCT GLUCOSE mg/dL 121* 105 156* 149* 181* Historical Values: (Includes values prior to this admission) Lab Results Component Value Date HDL 57 11/02/2021 LDL 89 11/02/2021 LDL 114 11/02/2021 No results found for: [id number] , IRON , TIBC , C3 , C4 , WENDI , CANCA , ASO , PSA , CEA , CA125 , CA199 , AFP , CA153 Imaging ECG 12 lead Normal sinus rhythm Right atrial (more content not included)...[facility] 07-01-2023 Note Attestation signed by Merritt Guerrero MD at 07/01/2023 2:42 PM I personally saw and examined the patient on the same date of service as resident/fellow Danuta Thomas. I discussed the findings and therapeutic plan with the resident/fellow Danuta Thomas. I agree with the documentation, except for any edits/updates below. Teaching Physician's Revisions: none Cardiology Progress Note Subjective Patient seen and examined at the bedside this morning. no acute events overnight no new complaints she is doing better she feels her breathing is improving she is able to lie flat in bed completely comfortable Objective Objective: Patient Vitals for the past 24 hrs: BP Temp Temp src Pulse Resp SpO2 Weight 07/01/23 0833 112/70 -- -- 52 15 92 % -- 07/01/23 0710 103/71 36.6 ???C (97.9 ???F) Temporal 58 17 95 % -- 07/01/23 0430 -- -- -- -- -- -- 71.8 kg (158 lb 3.2 oz) 07/01/23 0322 90/62 36.5 ???C (97.7 ???F) Temporal 53 13 91 % -- 06/30/23 2309 91/50 36.7 ???C (98.1 ???F) Temporal 68 14 92 % -- 06/30/23 2000 96/56 36.6 ???C (97.9 ???F) Temporal 69 23 92 % -- 06/30/23 1600 99/54 36.4 ???C (97.5 ???F) Temporal 65 25 95 % -- 06/30/23 1200 97/55 36.8 ???C (98.2 ???F) Temporal 70 16 95 % -- 06/30/23 1120 -- -- -- -- -- -- 72.6 kg (160 lb) Physical Examination: GENERAL: AOx3, in no acute distress. HEAD: Atraumatic, normocephalic. EYES: IZABELLA, EOMI. NECK: JVD not present CARDIAC: RRR. No murmur, rubs, or gallops. RESPIRATORY: CTAB, no increased effort of breathing. ABDOMEN: Soft, nontender, nondistended. EXTREMITIES: +1 pitting lower extremity edema NEURO: No focal deficits Relevant Lab Results Encounter Date: 06/29/23 ECG 12 lead Result Value Ventricular Rate 61 Atrial Rate 61 MO Interval 150 QRS DURATION 88 QT Interval 476 QTC CALCULATION(BAZETT) 479 P [place] 68 R-[place] 25 T Wave [place] 128 Impression Normal sinus rhythm Right atrial enlargement ST & T wave abnormality, consider anterolateral ischemia Prolonged QT Abnormal ECG When compared with ECG of 02-NOV-2021 07:18, T wave inversion more evident in Lateral Confirmed by Yoan QUIROGA, L.S. (2) on 06/29/2023 6:26:42 PM Lab Results Component Value Date TROPONINI 0.06 (H) 06/29/2023 Complete Echo (TTE) w/wo Imaging Agent, Strain, 3D, Bubble Study Result Date: 06/29/2023 1 1 [facility] Heart Station [address] [place] [address] [phone] (fax) Echocardiogram-[facility] Name: VIVIAN VANN Study Date: 06/29/2023 12:30 PM B/P: 135 mmHg/89 mmHg HR: Date of : 1960 Location: [facility] Height: 67 in. Age: 63 year(s) Patient Room: 3120 Weight: 166 lb. Gender: Female Patient Status: InPt BSA: 1.87 m2 Indication: Chest Pain Examination: Echocardiogram (Complete) Image Quality: Fair Patient Consent: Procedure explained to patient Conclusions Left Ventricle: The left ventricle is normal size. Global left ventricular systolic function is normal. The EF is 60 % visually. Left ventricular wall thickness is normal. No regional wall motion abnormality. Right Ventricle: The right ventricle is normal in size. Normal right ventricular systolic function. Doppler studies suggest mildly elevated right sided pressures. Left Atrium: The left atrium is mildly enlarged. Measurements Left Ventricle Label Value Normal Value LVOT PGmax 7 mmHg LVEF visual 60 % LVDd, 2D 4.43 cm (3.9cm - 5.3cm) LVDs, 2D 3.32 cm (2.1cm - 4cm) IVSd, 2D 0.88 cm (0.6cm - 1.1cm) LVPWd, 2D 1.4 cm (0.6cm - 0.9cm) LV Mass, 2D ASE 179.62 g LV Mass Index, 2D ASE 96.1 g/m?? (44g/m?? - 88.4g/m??) RWT, MM 0.63 (0 - 0.42) LVSVI, 2D 23.5 ml/m2 Right Ventricle Label Value Normal Value RVDd, 2D 3.08 cm (1.9cm - 3.8cm) TAPSE 1.94 cm Left Atrium Label Value Normal Value LA Volume, BP 71 ml (22ml - 52ml) LAESV index, BP 38 ml/m?? Right Atrium Label Value Normal Value RA Area 13.6 cm?? Aortic Valve Label Value Normal Value AV DVI 0.77 Mitral Valve Label Value Normal Value MV E Vmax 0.85 m/s MV A Vmax 0.44 m/s MV E/A 1.93 MV E/E' lateral 12.1 MV E' lateral 0.07 m/s Tricuspid Valve Label Value Normal Value RA Pressure 3 mmHg RVSP 37 mmHg TR Vmax 2.92 m/s Aorta Label Value Normal Value AoRoot, 2D 2.3 cm (1.4cm - 3.8cm) Valvular Assessment LVOT 0.7 - 1.1 m/sec Aortic Valve 1.0 - 1.7 m/sec Mitral Valve 0.6 - 1.3 m/sec Tricuspid Valve 0.3 - 0.7 m/sec Pulmonic Valve 0.6 - 0.9 m/sec Regurgitation No Mild Mild No Max Velocity 1.30 m/sec 1.69 m/s 0.85 m/sec 0.94 m/s Max Gradient 11.00 mmHg 4.00 mmHg Findings Left Ventricle: The left ventricle is normal size. Global left ventricular systolic function is normal. The EF is 60 % visually. Left ventricular wall thickness is normal. No regional wall motion abnormality. Right Ventricle: The r (more content not included)...[facility]02-17-2024 Note Attestation signed by Merritt Guerrero MD at 06/30/2023 8:36 PM I personally saw and examined the patient on the same date of service as resident/fellow Isabella Knutson. I discussed the findings and therapeutic plan with the resident/fellow Isabella Knutson. I agree with the documentation, except for any edits/updates below. Teaching Physician's Revisions: none Cardiology Progress Note Subjective Patient seen and examined at the bedside this morning. She underwent right and left heart cath yesterday. She endorses significant improvement in her shortness of breath. Urine output of 950 mL yesterday and currently getting IV diuresis. Is still marginally hypotensive. PCWP was 35 on RHC yesterday. Denies CP, SOB or orthopnea. Notices improvement in her LE swelling. Objective Objective: Patient Vitals for the past 24 hrs: BP Temp Temp src Pulse Resp SpO2 Weight 06/30/23 1200 97/55 36.8 ???C (98.2 ???F) Temporal 70 16 95 % -- 06/30/23 1120 -- -- -- -- -- -- 72.6 kg (160 lb) 06/30/23 0835 91/62 36.7 ???C (98.1 ???F) Temporal 62 16 98 % -- 06/30/23 0300 97/57 36.6 ???C (97.9 ???F) Temporal 69 16 92 % -- 06/29/23 2318 92/54 36.8 ???C (98.2 ???F) Temporal 64 18 93 % -- 06/29/23 1945 101/58 36.7 ???C (98.1 ???F) Temporal 68 15 90 % -- 06/29/23 1830 100/63 -- -- 67 14 91 % -- 06/29/23 1815 110/65 -- -- 61 13 93 % -- 06/29/23 1800 108/66 -- -- 62 11 (!) 89 % -- 06/29/23 1745 (!) 108/96 -- -- 61 17 94 % -- 06/29/23 1730 104/69 -- -- 59 26 92 % -- 06/29/23 1700 110/73 36.6 ???C (97.9 ???F) Temporal 62 17 91 % -- 06/29/23 1633 126/73 -- -- 62 20 97 % -- Physical Examination: GENERAL: AOx3, in no acute distress. HEAD: Atraumatic, normocephalic. EYES: IZABELLA, EOMI. NECK: JVD not present CARDIAC: RRR. No murmur, rubs, or gallops. RESPIRATORY: CTAB, no increased effort of breathing. ABDOMEN: Soft, nontender, nondistended. EXTREMITIES: +1 pitting lower extremity edema NEURO: No focal deficits Relevant Lab Results Encounter Date: 06/29/23 ECG 12 lead Result Value Ventricular Rate 61 Atrial Rate 61 MO Interval 150 QRS DURATION 88 QT Interval 476 QTC CALCULATION(BAZETT) 479 P [place] 68 R-[place] 25 T Wave [place] 128 Impression Normal sinus rhythm Right atrial enlargement ST & T wave abnormality, consider anterolateral ischemia Prolonged QT Abnormal ECG When compared with ECG of 02-NOV-2021 07:18, T wave inversion more evident in Lateral Confirmed by Yoan QUIROGA, L.S. (2) on 06/29/2023 6:26:42 PM Lab Results Component Value Date TROPONINI 0.06 (H) 06/29/2023 Complete Echo (TTE) w/wo Imaging Agent, Strain, 3D, Bubble Study Result Date: 06/29/2023 1 1 [facility] Heart Station [address] [place] [address] [phone] (fax) Echocardiogram-[facility] Name: VIVIAN VANN Study Date: 06/29/2023 12:30 PM B/P: 135 mmHg/89 mmHg HR: Date of : 1960 Location: [facility] Height: 67 in. Age: 63 year(s) Patient Room: 3120 Weight: 166 lb. Gender: Female Patient Status: InPt BSA: 1.87 m2 Indication: Chest Pain Examination: Echocardiogram (Complete) Image Quality: Fair Patient Consent: Procedure explained to patient Conclusions Left Ventricle: The left ventricle is normal size. Global left ventricular systolic function is normal. The EF is 60 % visually. Left ventricular wall thickness is normal. No regional wall motion abnormality. Right Ventricle: The right ventricle is normal in size. Normal right ventricular systolic function. Doppler studies suggest mildly elevated right sided pressures. Left Atrium: The left atrium is mildly enlarged. Measurements Left Ventricle Label Value Normal Value LVOT PGmax 7 mmHg LVEF visual 60 % LVDd, 2D 4.43 cm (3.9cm - 5.3cm) LVDs, 2D 3.32 cm (2.1cm - 4cm) IVSd, 2D 0.88 cm (0.6cm - 1.1cm) LVPWd, 2D 1.4 cm (0.6cm - 0.9cm) LV Mass, 2D ASE 179.62 g LV Mass Index, 2D ASE 96.1 g/m?? (44g/m?? - 88.4g/m??) RWT, MM 0.63 (0 - 0.42) LVSVI, 2D 23.5 ml/m2 Right Ventricle Label Value Normal Value RVDd, 2D 3.08 cm (1.9cm - 3.8cm) TAPSE 1.94 cm Left Atrium Label Value Normal Value LA Volume, BP 71 ml (22ml - 52ml) LAESV index, BP 38 ml/m?? Right Atrium Label Value Normal Value RA Area 13.6 cm?? Aortic Valve Label Value Normal Value AV DVI 0.77 Mitral Valve Label Value Normal Value MV E Vmax 0.85 m/s MV A Vmax 0.44 m/s MV E/A 1.93 MV E/E' lateral 12.1 MV E' lateral 0.07 m/s Tricuspid Valve Label Value Normal Value RA Pressure 3 mmHg RVSP 37 mmHg TR Vmax 2.92 m/s Aorta Label Value Normal Value AoRoot, 2D 2.3 cm (1.4cm - 3.8cm) Valvular Assessment LVOT 0.7 - 1.1 m/sec Aortic Valve 1.0 - 1.7 m/sec Mitral Valve 0.6 - 1.3 m/sec Tricuspid Valve 0.3 - 0.7 m/sec Pulmonic Valve 0.6 - 0.9 m/sec Regurgitation No Mild Mild N (more content not included)... [facility]02-17-2024 NoteHospital Medicine Daily Progress Note - 06/30/2023 11:32 AM; Room: [facility]/3120- Admission: 06/29/2023 11:04 AM; Length of stay: 1 days THE HOSPITALIST TEAM PREFERS TO USE [employer] CHAT FOR COMMUNICATION 7AM-7PM. IF I DO NOT RESPOND WITHIN 15 MINUTES, PLEASE PAGE ME/CALL THROUGH THE OVEN OPERATOR. FROM 7PM-7AM, PLEASE PAGE [phone](COVR) Code Status: Full Code Barriers to Discharge: CHF Expected Discharge Date: 1 - 2 days Discharge Destination: home Overview Patient is seen for evaluation and management of SOB. Subjective Reports feeling better today Reports cardiolgy did see her today and anticipate she will need diuresis for 2 - 3 days Physical Exam Visit Vitals BP 91/62 (BP Location: Right arm, Patient Position: Lying) Pulse 62 Temp 36.7 ???C (98.1 ???F) (Temporal) Resp 16 Intake/Output Summary (Last 24 hours) at 06/30/2023 1132 Last data filed at 06/30/2023 0638 Gross per 24 hour Intake 1076.54 ml Output 960 ml Net 116.54 ml Physical Exam Constitutional: Appearance: Normal appearance. HENT: Head: Normocephalic. Mouth/Throat: Mouth: Mucous membranes are moist. Eyes: Pupils: Pupils are equal, round, and reactive to light. Cardiovascular: Rate and Rhythm: Normal rate. Pulmonary: Effort: Pulmonary effort is normal. Abdominal: General: Abdomen is flat. Musculoskeletal: General: Normal range of motion. Skin: General: Skin is warm. Neurological: General: No focal deficit present. Mental Status: She is alert. Psychiatric: Mood and Affect: Mood normal. Estimated body mass index is 24.53 kg/m??? as calculated from the following: Height as of this encounter: 1.72 m (5' 7.72 ). Weight as of this encounter: 72.6 kg (160 lb). Active Inpatient Problems Principal Problem: NSTEMI (non-ST elevated myocardial infarction) ([facility]) Active Problems: Hyperlipidemia Type 2 diabetes mellitus ([facility]) Other forms of angina pectoris Hypomagnesemia Acute midline low back pain without sciatica Assessment and Plan NSTEMI - s/p cardiac cath 06/29, Left main: patent. LAD: proximal LAD has 30% stenosis. The previously placed stent in the mid LAD is widely patent. The first diagonal branch has proximal 30% stenosis. Remainder of the LAD is patent. LCX: The circumflex is a moderate size vessel and is patent. RCA: The RCA is a large vessel and is dominant the RCA is widely patent. The PDA and DUNCAN are both large vessel and are both widely patent Acute on chronic HFpEF NYHA class 2 - right heart catheterization shows severely decompensated heart failure with mean wedge pressure 35 mmHg - echo done shows The left ventricle is normal size. Global left ventricular systolic function is normal. The EF is 60 % visually. Left ventricular wall thickness is normal. No regional wall motion abnormality. Right Ventricle: The right ventricle is normal in size. Normal right ventricular systolic function. Doppler studies suggest mildly elevated right sided pressures. -lasix 40mg IV bid - GDMT per cards CAD - cont home meds DMII noninsulin dependent - ISS Chronic pain -resume home meds Anxiety - buspar 10mg po bid - xanax 1 mg po bid prn GERD - protonix Tobacco abuse - smoking cessation Scheduled Meds aspirin, 81 mg, oral, Daily atorvastatin, 80 mg, oral, Nightly busPIRone, 10 mg, oral, BID clopidogrel, 75 mg, oral, Daily dapagliflozin propanediol, 10 mg, oral, Daily furosemide, 40 mg, intravenous, q12h gabapentin, 300 mg, oral, TID pantoprazole, 40 mg, intravenous, Daily before breakfast Or pantoprazole, 40 mg, oral, Daily before breakfast [START ON 07/01/2023] pantoprazole, 40 mg, oral, Daily before breakfast spironolactone, 25 mg, oral, Daily traZODone, 50 mg, oral, Nightly Oxygen Therapy, Pertinent Investigations Hematology: Results from last 7 days Lab Units 06/30/23 0535 06/29/23 1153 WBC AUTO 10*3/uL 10.22 9.91 HEMOGLOBIN g/dL 11.5* 12.5 HEMATOCRIT % 35.7* 39.3 MCV fL 87.3 89.3 PLATELETS AUTO 10*3/uL 219 218 INR -- 0.98 Chemistry: Results from last 7 days Lab Units 06/29/23 2122 06/29/23 1736 06/29/23 1153 SODIUM mmol/L 137 -- 140 POTASSIUM mmol/L 4.1 -- 4.2 CHLORIDE mmol/L 102 -- 107 CO2 mmol/L 25 -- 27 BUN mg/dL 14 -- 10 CREATININE mg/dL 1.04 -- 1.01 GLUCOSE mg/dL 268* -- 148* MAGNESIUM mg/dL 2.1 2.2 1.7* CALCIUM mg/dL 8.2* -- 8.6 PHOSPHORUS mg/dL -- -- 3.5 Results from last 7 days Lab Units 06/29/23 1153 AST U/L 23 ALT U/L 23 ALK PHOS U/L 77 BILIRUBIN TOTAL mg/dL 0.4 Historical Values: (Includes values prior to this admission) Lab Results Component Value Date HDL 57 11/02/2021 LDL 89 11/02/2021 LDL 114 11/02/2021 No results found for: [id number] , IRON , TIBC , C3 , C4 , WENDI , CANCA , ASO , PSA , CEA , CA125 , CA199 , AFP , CA153 Imaging ECG 12 lead Normal sinus rhythm Right atrial enlargement ST & T wave abnormality, consider ante (more content not included)...[facility]02-16-2024 NotePatient: Vivian Vann Procedure Information Date/Time: 06/29/23 1655 Procedure: Coronary angiography Location: [facility] 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 Use of blood products discussed with patient who. Plan discussed with attending. [facility] Hospital Medicine History and Physical 06/29/2023 12:51 PM THE HOSPITALIST TEAM PREFERS TO USE [employer] CHAT FOR COMMUNICATION 7AM-7PM. IF I DO NOT RESPOND WITHIN 15 MINUTES, PLEASE PAGE ME/CALL THROUGH THE OVEN OPERATOR. FROM 7PM-7AM, PLEASE PAGE [phone](COVR) Chief Complaint Direct admission from [facility] for NSTEMI requiring cardiac cath History of Present Illness Vivian Vann is an 63 y.o. female who came from [facility] as direct asmission for NSTEMI. Patient presented 06/28/23 to [facility] for c/o chest pain and lower back pain. Patient troponin level found to be 557 and EKG showed new ischemia and inverted T-waves, NSTEMI. She was given nitroglycerin and started on heparin drip. Patient is 1 year s/p stent placement at [facility] on plavix and aspirin. Dr. Yoo with cardiology agreed to patient transfer here to [facility] with hospital medicine admitting and cardiology consult for intervention. Upon my assessment, patient resting sitting up in hospital bed and is A/O x4. She reports pain 7/10 in chest and chronic pain 10/10 in low back r/t her chronic sciatic pain. Physical assessment generally unremarkable. Denies N/V/D/C, dysuria. Reports recent new onset diabetes for which she had been scheduled for follow-up TODAY with PCP to review recent labs. She denies any s/sx of hyper/hypoglycemia. Denies headache, unexplained bruising, dyspnea, or shortness of breath. States chest pain is constant and did keep her up/awake overnight. Cardiac ECHO and EKG pending. X-Ray chest and Low back pending. Laboratory workup here at [facility] shows CBC unremarkable w/ exception of NCHC 31.8 and 15.3. CMP unremarkable w/ exception og mildly elevated glucose 148. PT/INR 13.0/0.98. aPTT 67.3, BNP 1,683, Mag 1.7, Troponin 0.07, and lactate 2.5. Review of System and Physical Exam Temp: [37.1 ???C (98.8 ???F)] 37.1 ???C (98.8 ???F) Heart Rate: [63] 63 Resp: [14] 14 BP: (135)/(89) 135/89 Physical Exam Vitals and nursing note reviewed. Exam conducted with a telephone lines repairer present. Constitutional: General: She is not in acute distress. Appearance: Normal appearance. She is not ill-appearing, toxic-appearing or diaphoretic. HENT: Head: Normocephalic. Nose: Nose normal. No congestion. Mouth/Throat: Mouth: Mucous membranes are moist. Eyes: Extraocular Movements: Extraocular movements intact. Conjunctiva/sclera: Conjunctivae normal. Pupils: Pupils are equal, round, and reactive to light. Cardiovascular: Rate and Rhythm: Normal rate. Rhythm irregular. Pulses: Normal pulses. Heart sounds: Normal heart sounds. Pulmonary: Effort: Pulmonary effort is normal. No respiratory distress. Breath sounds: Normal breath sounds. No wheezing or rhonchi. Abdominal: General: Abdomen is flat. Bowel sounds are normal. Palpations: Abdomen is soft. Musculoskeletal: General: Normal range of motion. Cervical back: Normal range of motion. Right lower leg: No edema. Left lower leg: No edema. Skin: General: Skin is warm and dry. Capillary Refill: Capillary refill takes less than 2 seconds. Coloration: Skin is not pale. Neurological: Mental Status: She is alert and oriented to person, place, and time. Motor: No weakness. Psychiatric: Mood and Affect: Mood normal. Behavior: Behavior normal. Thought Content: Thought content normal. Judgment: Judgment normal. Review of Systems Constitutional: Negative for activity change and fatigue. HENT: Negative. Eyes: Negative. Respiratory: Negative for cough, chest tightness, shortness of breath and wheezing. Cardiovascular: Positive for chest pain. Negative for palpitations and leg swelling. Gastrointestinal: Positive for diarrhea. Negative for constipation. Hx IBS Endocrine: Negative for cold intolerance and heat intolerance. Genitourinary: Negative. Negative for decreased urine volume, difficulty urinating and dysuria. Musculoskeletal: Positive for back pain. Skin: Negative. Allergic/Immunologic: Negative. Neurological: Negative for dizziness, syncope, weakness, light-headedness, numbness and headaches. Hematological: Negative. Does not bruise/bleed easily. Psychiatric/Behavioral: Negative. Problem List Patient Active Problem List Diagnosis Date Noted NSTEMI (non-ST elevated myocardial infarction) ([facility]) 06/29/2023 Assessment and Plan Chest pain Low Back Pain NSTEMI -Troponin 557 at [facility], troponin now 0.07 - aPTT 67.3, BN P 1683, mag 1.7, lactic acid 2.5 - EKG normal sinus rhythm, right atrial enlargement, ST and T wave abnormality with recommended consideration of anterolateral ischemia, prolonged QT. T wave inversion more evident in lateral compared to EKG from October 2021. - Chest x-ray negative for any acute findings. - Complete echo (TTE) ordered and pending -Consult cardiology, cardiology notified - Nitroglycerin 0.4 mg sublingual tablet as needed chest pain - Heparin drip with titratio (more content not included)...[facility]04-05-2023 NoteMicrobiology PROCEDURE: Blood Culture Charcoal [R1] SOURCE: Blood BODY SITE: Arm R COLLECTED DATE/TIME: 08/09/2022 14:30 EDT RECEIVED DATE/TIME: 08/09/2022 15:53 EDT START DATE/TIME: 08/09/2022 15:53 EDT FREE TEXT SOURCE: IV start/right forearm Nic PA-C, Clinton C Nic PA-C, Clinton C FINAL REPORTS Final Report [] Verified Date/Time: 08/16/2022 16:07 EDT No growth at 7 days. Performing Locations R1: This test was performed at: [facility], [address] [place] [address], [id number] [place] [address], [id number] Rollins StreetComment on above:Performed By: #### [id number] ####[address] [id number] NoteMicrobiology PROCEDURE: Blood Culture Charcoal [R1] SOURCE: Blood BODY SITE: Arm L COLLECTED DATE/TIME: 08/09/2022 14:09 EDT RECEIVED DATE/TIME: 08/09/2022 14:17 EDT START DATE/TIME: 08/09/2022 14:17 EDT FREE TEXT SOURCE: lt ac Nic PA-C, Clinton C Nic PA-C, Clinton C FINAL REPORTS Final Report [] Verified Date/Time: 08/16/2022 15:58 EDT No growth at 7 days. Performing Locations R1: This test was performed at: [facility], [address] [place] [address], [id number] [place] [address], [address] StreetComment on above:Performed By: #### [id number] ####[address] [id number] Hospital Discharge instructions Patient Education 08/09/2022 16:50:59 Chronic Obstructive Pulmonary Disease Chronic Obstructive Pulmonary Disease Chronic obstructive pulmonary disease (COPD) is a long-term (chronic) condition that affects the lungs. COPD is a general term that can be used to describe many different lung problems that cause lung swelling (inflammation) and limit airflow, including chronic bronchitis and emphysema. If you haveCOPD, your lung function will probably never return [...] a spirometry test, which measures your ability toexhale properly. Chest X-ray. CT scan. Blood tests. How is this treated? This condition may be treated with: Medicines. These may include inhaled rescue medicines to treat acute exacerbations as well as long-term, or maintenance, medicines to prevent flare- ups of COPD. ?Bronchodilators help treat COPD by [...] Follow these instructions at home: Medicines Take yqqb-bsa-llkvclj and prescription medicines (inhaled or pills) only [...] to by your health care provider. If yourequire home oxygen therapy, ask your health care [...] 02/07/2006 Document Revised: 04/12/2018 Document Reviewed: 06/04/2017 [employer] Patient Education 2020 Theorem. Follow Up Care 08/09/2022 13:09:28 With:Екатерина Robert Address: [address] [place] [id number] Business (1) When:08/12/2022 16:50:37 Comments:Call the office [...] you develop any new or worsening symptoms. [facility]03-29-2023 Evaluation + Plan noteExtracted from: Title:ED Note Author:Clinton Lucero PA-C e:08/09/22 [...] Charcoal 08/09/22 * Blood Culture Charcoal 08/09/22 [facility]06-23-2022 NoteMR#: [id number] I [facility] Pt. Name: Vivian Vann Admitted: 11/01/2021 Discharged: 11/03/2021 Date of : 1960 Physician: Tamie Fajardo MD DISCHARGE SUMMARY PRINCIPAL DIAGNOSIS: Wkr-CN-dpomkwqef myocardial infarction. SECONDARY DIAGNOSES: 1. Questionable small subsegmental PE in the right lower lobe, favored to be chronic per CT angio done outside facility. 2. Peptic ulcer disease. 3. Depression. 4. Chronic obstructive pulmonary disease. 5. THC use. 6. Nicotine use. HOSPITAL COURSE: Again, the patient was admitted to the hospital on 11/01/2021, with chest pain and she was found to have a mdr-RF-nsykykoal [place]. The patient underwent cardiac catheterization and had [...] least 60 minutes. Electronically Signed by: Tamie Fajardo MD 11/04/2021 04:08 P Tamie Fajardo MD Date Dict: 11/03/2021/12:37 P/Tamie Fajardo MD Date Trans: 11/03/2021 01:10 P/laura [id number] cc: Gasper Avendano M.D. [address] [place] [id number] Екатерина Robert M.D. [place] [id number] [facility] [id number] Narrative No data available for this section [facility] No data available for this section [facility] No data available for this section [facility] Summary Purpose Family History No Family History Records FoundNo Family History Records FoundNo Family History Records Found No data available for this section No Family History Records FoundNo Family History Records FoundNo Family History Records Found Advance Directives No Advanced Directives Records FoundNo Advanced Directives Records FoundNo Advanced Directives Records FoundNo Advanced Directives Records FoundNo Advanced Directives Records FoundNo Advanced Directives Records Found Additional Source Comments INFORMATION SOURCE (unrecogn ized section and content) DATE CREATED AUTHOR 09/12/2018 Sury Vasquez [facility] DATE CREATED AUTHOR AUTHOR'S ORGANIZ ATION 01/06/2022 [facility] DATE CREATED AUTHOR AUTHOR'S ORGANIZ ATION 09/05/2022 [facility] DATE CREATED AUTHOR AUTHOR'S ORGANIZ ATION 07/13/2023 [facility] DATE CREATED AUTHOR AUTHOR'S ORGANIZ ATION 07/13/2023 [facility] DATE CREATED AUTHOR AUTHOR'S ORGANIZ ATION 07/19/2023 [facility] Patient Care team informatio n (unrecognized section and content) Personnel Name: Екатерина Robert MD Address: Address: [address] [place] [address] Personnel Name: Екатерина Robert MD Address: Address: [address] [place] [address] FOR RECORDS PERTAINING TO PATIENTS WHO ARE [...] BE BASED ON THE PRIMARY CLINICAL RECORDS. [facility] [employer] [facility]. provides no warranty or guarantee of the accuracy or completeness of information in this document.
--- NOTE | 2023-07-22 04:52 | ECG_ITS ---
The [facility] Test Date: 2023-07-22 Pat Name: EMERY JETT Department: Room: - Gender: Female Dopster: : 1960 Requested By: ЕКАТЕРИНА ROBERT Order Number: [id number] Reading MD: EBONIE BOLIVAR Measurements Intervals [place] Rate: 78 P: 61 [place]: 146 QRS: 38 QRSD: 72 T: 184 QT: 384 QTc: 417 Interpretive Statements 88029 Electronic atrial pacemaker [address] depression 4364 Twave abnormality, possible anterolateral ischemia 4664 Twave abnormality, possible inferior ischemia 9150 abnormal ECG Compared to ECG 06/29/2023 05:36:55 No significant changes Electronically Signed On 07-24-2023 22:34:00 EDT by EBONIE BOLIVAR
--- NOTE | 2023-07-22 04:52 | XR_ITS ---
The [address] [address] Patient Name: EMERY JETT MRN: [id number] date: 1960 Sex: F Assigned Patient Location: ED.MAIN Current Patient Location: ER Accession/Order Number: [id number] Exam Date: 07/22/2023 04:57 Report Date: 07/22/2023 05:39 At the request of: MATTEO NGO Procedure: XR chest 1V SINGLE VIEW CHEST: 07/22/2023 4:57 AM EDT CLINICAL HISTORY:chest pain COMPARISONS: 06/29/2023 frontal chest TECHNIQUE: Single frontal view of the chest, utilizing portable technique. Portable radiography should be considered a technically compromised study. Strongly consider dedicated PA and lateral chest radiographs, as clinically indicated. FINDINGS: LINES AND TUBES: Interval placement duly pacemaker device and upper left chest wall and axillary region with intact leads extending via subclavian approach to right atrium and right ventricle. Multiple external cardiac monitoring leads are present. CARDIAC SILHOUETTE: Within normal limits. MEDIASTINAL AND HILAR CONTOUR: Within normal limits. PULMONARY PARENCHYMA AND PLEURA: No consolidation, edema, effusion, or pneumothorax. Lungs are hyperinflated. OSSEOUS STRUCTURES:Nothing significant. OTHER COMMENTS:None. XR/XR chest 1V IMPRESSION: Placement of dual lead left chest wall pacemaker device and leads, otherwise stable chest, with no acute radiographic findings. No pneumothorax. This report was generated with voice recognition software. Effort has been made to ensure accuracy of this report, however, occasional wording errors may persist. Please contact our office with any questions. Electronically authenticated by: DELLA SEE Date: 07/22/2023 05:39
[2023-07-22] MEDS: LORAZEPAM 2 MG/ML 1 ML VIAL 1 MG IV (05:04)
[2023-07-22] MEDS: MAGNESIUM SULFATE IN WATER 2 GM/50 ML PREMIX IV (05:04)
--- NOTE | 2023-07-22 05:09 | PC.NURSE ---
patient arrives via ems after waking up 3 hours prior to arrival with shortness of breath and back pain. patient reports it feels similar to her anxiety but she was not sure due to having recent pacemaker placed and feeling anxious due to not having been able to make her follow up appointment in [place].
[2023-07-22 05:25] LABS: Basophils Absolute Auto 0.1 10^3/uL (0.0-0.1); Basophils Percent Auto 0.5 % (0.2-2.0); Eosinophils Absolute Auto 0.6 10^3/uL (0.0-0.7); Eosinophils Percent Auto 5.9 % (0.9-7.0); Hematocrit 37.2 % (36.0-48.0); Hemoglobin 11.2 g/dL (12.0-16.0); Immature Granulocytes Abs Auto 0.02 10^3/uL (0.00-0.03); Immature Granulocytes Pct Auto 0.2 % (0.0-0.5); Lymphocytes Absolute Auto 2.7 10^3/uL (1.2-3.8); Lymphocytes Percent Auto 27.5 % (20.5-60.0); Mean Corpuscular HGB Conc 30.1 g/dL (29.9-35.2); Mean Corpuscular Hemoglobin 27.7 pg (26.7-34.0); Mean Corpuscular Volume 92.1 fL (81.0-99.0); Mean Platelet Volume 9.7 fL (9.5-13.5); Monocytes Absolute Auto 0.7 10^3/uL (0.3-0.8); Monocytes Percent Auto 6.8 % (1.7-12.0); Neutrophils Absolute Auto 5.8 10^3/uL (1.4-6.5); Neutrophils Percent Auto 59.1 % (43.0-75.0); Platelet Count 326 10^3/uL (150-450); Red Blood Count 4.04 10^6/uL (4.20-5.40); Red Cell Distribution Width 15.5 % (11.0-15.0); White Blood Count 9.7 10^3/uL (4.0-11.0)
[2023-07-22 05:42] LABS: Anion Gap 12.7; BUN Creatinine Ratio 13.5; Calcium 8.8 mg/dL (8.5-10.1); Carbon Dioxide 27.7 mmol/L (21.0-32.0); Chloride 108 mmol/L (98-107); Estimated GFR (African America 52 (>=60); Estimated GFR (Non-African Ame 43 (>=60); Glucose 212 mg/dL (74-106); Potassium 4.4 mmol/L (3.5-5.1); Sodium 144 mmol/L (136-145)
[2023-07-22 05:46] LABS: Troponin I High Sensitivity 138.2 pg/mL (4.0-51.3)
--- NOTE | 2023-07-22 05:57 | CT_ITS ---
The [address] [address] Patient Name: EEMRY JETT MRN: [id number] date: 1960 Sex: F Assigned Patient Location: ER Current Patient Location: [facility] Accession/Order Number: [id number] Exam Date: 07/22/2023 06:10 Report Date: 07/22/2023 06:31 At the request of: MATTEO NGO Procedure: CT chest wo con EXAM: CT chest wo con HISTORY: chest pain COMPARISON: Chest x-ray, 07/22/2023. TECHNIQUE: Nonenhanced CT imaging the chest was performed with sagittal and coronal reconstructions. Dose reduction techniques were achieved by using automated exposure control and/or adjustment of mA and/or kV according to patient size and/or use of iterative reconstruction technique. FINDINGS: Right subclavian cardiac pacemaker has leads in the right atrium and right ventricle. There is a coronary artery stent in the LAD. Cardiac size is normal. There is no pericardial effusion. The nonenhanced thoracic aorta and arch vessels are grossly unremarkable. The thyroid gland appears normal. There is mild fluid in the thoracic esophagus suggesting gastroesophageal reflux. No thoracic adenopathy is seen. Mild tree-in-bud infiltrate is seen in the right upper and right lower lobes favoring mild small airway infection. There is a nonspecific 9 mm nodular appearing lesion in the medial right upper lobe in the paraspinal region on image 20 of series 3. There is mild biapical pulmonary parenchymal scarring. The lungs appear otherwise clear. The upper abdomen appears unremarkable. The bony thorax appears intact. CT/CT chest wo con IMPRESSION: 1. Very mild tree-in-bud infiltrate in the right upper and right lower lobes favoring mild small airway infection. No other acute findings in the chest. 2. Noncalcified 9 mm nodular appearing lesion in the paraspinal region of the medial right upper lobe, nonspecific. Follow-up is recommended per Fleischner Society guidelines, as outlined below. 3. Mild fluid in the thoracic esophagus suggesting gastroesophageal reflux. This increases the patient's aspiration risk. Fleischner Society guidelines for follow-up and management of solitary pulmonary nodules incidentally discovered in patients 35 years old or older: Nodule size > 8 mm Low and high-risk patients: Consider CT at 3 months, PET-CT, or tissue sampling Low risk patients include individuals with minimal or absent history of smoking and other known risk factors. High risk patients include individuals with a history of smoking or other known risk factors. Radiology 2017. Feb 23:601380. DOI: 10.1148/[id number]. Electronically authenticated by: KEISHA RED Date: 07/22/2023 06:31
[2023-07-22] MEDS: ORPHENADRINE 60 MG/ 2 ML VIAL IV (06:01)
[2023-07-22] MEDS: ACETAMINOPHEN 300 MG/ 30 MG CODEINE TABLET 1 TAB PO (07:17)
[2023-07-22] MEDS: METHYLPREDNISOLONE SOD SUCC PF 125 MG/2 ML VIAL IVP (07:18)
[2023-07-22 07:51] LABS: Troponin I High Sensitivity 136.6 pg/mL (4.0-51.3)
== END 2023-07-22 08:37 | disposition home or self-care (01) ==
PROVIDERS: Internal Medicine; Emergency Provider Emergency Medicine; PCP Family Medicine
DX: J18.9 Pneumonia, unspecified organism (principal); F41.9 Anxiety disorder, unspecified; I25.10 Atherosclerotic heart disease of native coronary artery without angina pectoris; K58.9 Irritable bowel syndrome, unspecified; Z90.49 Acquired absence of other specified parts of digestive tract; Z95.5 Presence of coronary angioplasty implant and graft; I25.2 Old myocardial infarction; Z95.0 Presence of cardiac pacemaker; Z79.82 Long term (current) use of aspirin; Z79.899 Other long term (current) drug therapy; F17.210 Nicotine dependence, cigarettes, uncomplicated; F12.90 Cannabis use, unspecified, uncomplicated
CPT/HCPCS: 36415; 71045; 71250; 80048; 83735; 84484; 85025; 93005; 96365; 96375; 99285; J2930

== ENCOUNTER 2023-07-23 18:12 | Inpatient (IN) | payer OTHER, SELFPAY ==
[2023-07-23] VITALS (27 sets, daily range): BP systolic 126–164; BP diastolic 77–99; PULSE 75–94; RESP 13–32; TEMP 36.6–36.9; O2SAT 85–97; BMI 23.5; BMI 26.3
--- NOTE | 2023-07-23 18:30 | XR_ITS ---
The [address] [address] Patient Name: EMERY JETT MRN: [id number] date: 1960 Sex: F Assigned Patient Location: ER Current Patient Location: ED.MAIN Accession/Order Number: [id number] Exam Date: 07/23/2023 18:25 Report Date: 07/23/2023 19:08 At the request of: ROSALBA MESSINA Procedure: XR chest 1V EXAM: XR chest 1V HISTORY: increased SOB COMPARISON: 07/22/2023 and earlier. TECHNIQUE: AP portable upright chest x-ray. FINDINGS: Lungs are clear without infiltrate or edema. Markings prominent but felt to be unchanged. Heart size normal for technique and accentuated by magnification but felt to be unchanged. Pacemaker leads unchanged. Costophrenic angles poorly defined similar to previous. No definite effusion but cannot exclude small pleural effusion or effusions. XR/XR chest 1V IMPRESSION: Lung markings felt to be unchanged without definite infiltrate or edema. No definite increasing pleural effusion although costophrenic angles are poorly defined as noted above. Electronically authenticated by: KEISHA KIM Date: 07/23/2023 19:08
--- NOTE | 2023-07-23 18:36 | ED.SOB1 ---
HPI - SOB/Dyspnea General Chief Complaint: Shortness of Breath/Dyspnea Stated Complaint: SOB Time Seen by Provider: 07/23/23 18:18 Source: patient Mode of arrival: ambulance History of Present Illness HPI Narrative: 63 year old female presents to the ED for SOB, cough, right-sided sciatica, and anxiety. She was evaluated here early yesterday morning for the same. She was discharged home with a Z-tobias. States her SOB became worse today. Denies fever, chills, edema, N/V/D. Denies chest pain, upper back pain. States the sciatica is a chronic, recurrent issue. She recently had a pacemaker placed. She was placed on Lasix after the pacemaker placement. The patient was admitted to the hospital in May, for dyspnea. Her WBC count and troponin were elevated at that time. She had an elevated troponin at the visit yesterday morning; it was 136. ED attending yesterday spoke with cardiology and it was felt the elevated troponin may be related to the patient's pacemaker placement 2 weeks ago. The patient had a CT of her chest yesterday that showed a possible small airway infection which resulted in the Z-tobias prescription. Pt rates her pain 12/21 due to her sciatica. Procedure: CT chest wo con EXAM: CT chest wo con HISTORY: chest pain COMPARISON: Chest x-ray, 07/22/2023. TECHNIQUE: Nonenhanced CT imaging the chest was performed with sagittal and coronal reconstructions. Dose reduction techniques were achieved by using automated exposure control and/or adjustment of mA and/or kV according to patient size and/or use of iterative reconstruction technique. FINDINGS: Right subclavian cardiac pacemaker has leads in the right atrium and right ventricle. There is a coronary artery stent in the LAD. Cardiac size is normal. There is no pericardial effusion. The nonenhanced thoracic aorta and arch vessels are grossly unremarkable. The thyroid gland appears normal. There is mild fluid in the thoracic esophagus suggesting gastroesophageal reflux. No thoracic adenopathy is seen. Mild tree-in-bud infiltrate is seen in the right upper and right lower lobes favoring mild small airway infection. There is a nonspecific 9 mm nodular appearing lesion in the medial right upper lobe in the paraspinal region on image 20 of series 3. There is mild biapical pulmonary parenchymal scarring. The lungs appear otherwise clear. The upper abdomen appears unremarkable. The bony thorax appears intact. CT/CT chest wo con IMPRESSION: 1. Very mild tree-in-bud infiltrate in the right upper and right lower lobes favoring mild small airway infection. No other acute findings in the chest. 2. Noncalcified 9 mm nodular appearing lesion in the paraspinal region of the medial right upper lobe, nonspecific. Follow-up is recommended per Fleischner Society guidelines, as outlined below. 3. Mild fluid in the thoracic esophagus suggesting gastroesophageal reflux. This increases the patient's aspiration risk. Fleischner Society guidelines for follow-up and management of solitary pulmonary nodules incidentally discovered in patients 35 years old or older: Nodule size > 8 mm Low and high-risk patients: Consider CT at 3 months, PET-CT, or tissue sampling Low risk patients include individuals with minimal or absent history of smoking and other known risk factors. High risk patients include individuals with a history of smoking or other known risk factors. Radiology 2017. Feb 23:240978. DOI: 10.1148/[id number]. Electronically authenticated by: KEISHA RED Date: 07/22/2023 06:31 Related Data Home Medications Medication Instructions Recorded Confirmed alprazolam 1 mg tablet 1 mg PO BID 06/10/23 07/23/23 aspirin 81 mg tablet,delayed 81 mg PO DAILY 06/10/23 07/23/23 release atorvastatin 80 mg tablet 80 mg PO DAILY 06/10/23 07/23/23 buspirone 10 mg tablet 10 mg PO BID 06/10/23 07/23/23 carvedilol 6.25 mg tablet 6.25 mg PO BID 06/10/23 07/23/23 clopidogrel 75 mg tablet 75 mg PO DAILY 06/10/23 07/23/23 dapagliflozin propanediol 10 mg 10 mg PO DAILY 06/10/23 07/23/23 tablet (Farxiga) gabapentin 300 mg capsule 300 mg PO TID 06/10/23 07/23/23 trazodone 50 mg tablet 50 mg PO DAILY 06/10/23 07/23/23 albuterol sulfate 90 mcg/actuation 2 puff inhalation Q6H PRN 06/29/23 07/23/23 aerosol inhaler shortness of breath or wheezing pantoprazole 40 mg tablet,delayed 40 mg PO DAILY 06/29/23 07/23/23 release furosemide 40 mg tablet 40 mg PO QAM 07/23/23 07/23/23 spironolactone 25 mg tablet 25 mg PO QAM 07/23/23 07/23/23 Previous Rx's Medication Instructions Recorded levothyroxine 75 mcg tablet 75 mcg PO ACB #30 tabs 06/11/23 azithromycin 250 mg tablet See Rx Instructions PO .COMPLEX #6 07/22/23 (Zithromax Z-Tobias) tabs Allergies Allergy/AdvReac Type Severity Reaction Status Date / Time No Known Drug Allergies Allergy Verified 06/29/23 03:50 Review of Systems ROS Constitutional Denies: fever or chills Ears, nose, mouth, and throat Denies: throat pain or neck pain Cardiovascular Denies: chest pain, palpitations or edema Respiratory Reports: shortness of breath and cough Gastrointestinal Denies: abdominal pain, nausea, vomiting or heartburn Musculoskeletal Reports: extremity pain; Denies: back pain, neck pain, extremity swelling or muscle weakness Neurological Denies: headache, numbness in extremities, weakness in extremities or dizziness Psychiatric Reports: anxiety PFSH PFSH Medical History IBS (irritable bowel syndrome) ?K58.9 - Irritable bowel syndrome without diarrhea (ICD-10) Anxiety ?F41.9 - Anxiety disorder, unspecified (ICD-10) Heart attack ?I21.9 - Acute myocardial infarction, unspecified (ICD-10) Sciatic leg pain ?M54.30 - Sciatica, unspecified side (ICD-10) Herniated disc, cervical ?M50.20 - Other cervical disc displacement, unspecified cervical region (ICD-10) Surgical History History of appendectomy ?Z90.49 - Acquired absence of other specified parts of digestive tract (ICD-10) History of heart artery stent ?Z95.5 - Presence of coronary angioplasty implant and graft (ICD-10) Family History Other Family history of diabetes mellitus Family history of myocardial infarction Social History Within the past year, how often did you have a drink containing alcohol: monthly or less Smoking status: Current every day smoker Nicotine containing products detail: 1 pack/week Non-prescribed substance use: cannabis (any form) Non-prescribed substance use details: smokes marijuana, gummies Highest level of school completed/degree received: high school graduate Exam Constitutional Vital Signs, click to edit/add: Last Vital Signs Temp 98.4 F 07/23/23 18:14 Pulse 87 07/23/23 20:50 Resp 24 07/23/23 20:50 BP 142/99 H 07/23/23 20:30 Pulse Ox 94 L 07/23/23 20:50 O2 Del Method Nasal Cannula 07/23/23 19:13 O2 Flow Rate 2 07/23/23 19:13 Common normals: oriented x3 General appearance: cooperative HENMT Common normals: normocephalic External ear: external ears normal Mouth: oral and palatal mucosa normal, lip normal and tongue normal Throat: posterior oropharynx normal Eye Common normals: conjunctivae normal and no scleral icterus Neck & C-Spine Common normals: supple and no JVD Chest Chest: symmetrical chest wall rise Respiratory Common normals: clear to auscultation bilaterally Effort & inspection: able to speak in complete sentences, tachypneic and labored; no stridor and no audible wheezes Cardio Common normals: regular rate and regular rhythm GI Common normals: soft to palpation and non-tender Extremity Common normals: normal capillary refill and no pedal edema Neuro Common normals: oriented x3 Sensorium/orientation: awake and alert Speech: speech normal Psych Speech: rapid Mood and affect: anxious Course Vital Signs Vital signs: Vital Signs Temperature 98.4 F 07/23/23 18:14 Pulse Rate 77 07/23/23 18:14 Respiratory Rate 18 07/23/23 18:14 Blood Pressure 159/97 H 07/23/23 18:14 Pulse Oximetry 95 07/23/23 18:14 Oxygen Delivery Method Room Air 07/23/23 18:14 Temperature 98.4 F 07/23/23 18:14 Pulse Rate 87 07/23/23 20:50 Respiratory Rate 24 07/23/23 20:50 Blood Pressure 142/99 H 07/23/23 20:30 Pulse Oximetry 94 L 07/23/23 20:50 Oxygen Delivery Method Nasal Cannula 07/23/23 19:13 Oxygen Delivery Flow Rate 2 07/23/23 19:13 MDM - SOB/Dyspnea MDM Narrative Medical decision making narrative: The patient became hypoxic in the ED at 87% on room air. She was placed on [place] oxygen at 2L with improvement. Chest x-ray showed no change from yesterday. Initial Covid-19 and influenza were negative; respiratory panel was pending. WBC count today was 19.8; it was 9.7 yesterday. Troponin today was 305; it was 136 yesterday. BNP today was 5,371; it was 608 in May,. I spoke with Dr. Chance for cardiology. He requested the patient be started on a Heparin drip. He stated the patient may stay at [facility]. I spoke with Merritt Mulligan CNP who accepted the patient for admission under Dr. Castñaeda. The patient was also started on IV antibiotics due to the concern for infection on the CT scan from yesterday and the leukocytosis today. Differential Diagnosis Differential diagnosis: Likely acute exacerbation of chronic obstructive airways disease, congestive heart failure, community acquired pneumonia, asthma with exacerbation and pulmonary embolism Medical Records Attestation: I reviewed the patient's medical records. Lab Data Attestation: I reviewed the patient's lab results. Labs: Lab Results 07/23/23 07/23/23 Range/Units 18:57 19:27 WBC 19.8 H (4.0-11.0) 10^3/uL RBC 4.01 L (4.20-5.40) 10^6/uL Hgb 11.0 L (12.0-16.0) g/dL Hct 37.5 (36.0-48.0) % MCV 93.5 (81.0-99.0) fL MCH 27.4 (26.7-34.0) pg MCHC 29.3 L (29.9-35.2) g/dL RDW 15.8 H (11.0-15.0) % Plt Count 353 (150-450) 10^3/uL MPV 9.6 (9.5-13.5) fL Neut % (Auto) 78.8 H (43.0-75.0) % Lymph % (Auto) 13.8 L (20.5-60.0) % [place] % (Auto) 6.7 (1.7-12.0) % Eos % (Auto) 0.1 L (0.9-7.0) % Baso % (Auto) 0.2 (0.2-2.0) % Neut # (Auto) 15.6 H (1.4-6.5) 10^3/uL Lymph # (Auto) 2.7 (1.2-3.8) 10^3/uL [place] # (Auto) 1.3 H (0.3-0.8) 10^3/uL Eos # (Auto) 0.0 (0.0-0.7) 10^3/uL Baso # (Auto) 0.0 (0.0-0.1) 10^3/uL Abs Immat Gran (auto) 0.07 H (0.00-0.03) 10^3/uL Imm/Tot Granulo (auto) 0.4 (0.0-0.5) % PT 9.4 (9.0-11.6) sec INR <0.93 APTT 24.5 (22.3-36.2) sec Sodium 142 (136-145) mmol/L Potassium 4.3 (3.5-5.1) mmol/L Chloride 105 (98-107) mmol/L Carbon Dioxide 30.5 (21.0-32.0) mmol/L Anion Gap 10.8 BUN 22.0 H (7.0-18.0) mg/dL Creatinine 1.08 H (0.55-1.02) mg/dL Est GFR ( Amer) >60 (>=60) Est GFR (Non-Af Amer) 51 L (>=60) BUN/Creatinine Ratio 20.4 Glucose 125 H (74-106) mg/dL Calcium 9.1 (8.5-10.1) mg/dL Total Bilirubin 0.2 (0.2-1.0) mg/dL AST 38 H (15-37) U/L ALT 55 (14-59) U/L Alkaline Phosphatase 89 (46-116) U/L Troponin I High Sens 305.2 H* (4.0-51.3) pg/mL NT-Pro-B Natriuret Pep 5371.0 H* (<=900.0) pg/mL Total Protein 7.2 (6.4-8.2) g/dL Albumin 3.6 (3.4-5.0) g/dL Globulin 3.6 g/dL Albumin/Globulin Ratio 1.0 Adenovirus (PCR) Not detected (NOT DETECTE) C. pneumoniae DNA (PCR) Not detected (NOT DETECTE) Coronavirus Type OC43 Not detected (NOT DETECTE) Coronavirus Type HKU1 Not detected (NOT DETECTE) Coronavirus Type 229E Not detected (NOT DETECTE) Coronavirus Type NL63 Not detected (NOT DETECTE) Human Metapneumovir PCR Not detected (NOT DETECTE) M. pneumoniae (PCR) Not detected (NOT DETECTE) Parainfluenza PCR Not detected (NOT DETECTE) Parainfluenza 2 (PCR) Not detected (NOT DETECTE) Parainfluenza 3 (PCR) Not detected (NOT DETECTE) Parainfluenza 4 (PCR) Not detected (NOT DETECTE) RSV (RT-PCR) Not detected (NOT DETECTE) Entero/Rhino (PCR) Not detected (NOT DETECTE) SARS-CoV-2 (PCR) Not detected (NOT DETECTE) Bordetella pertussis (PCR) Not detected (NOT DETECTE) B parapertussis DNA PCR Not detected (NOT DETECTE) Influenza Type A (PCR) Not detected (NOT DETECTE) Influenza Type B (PCR) Not detected (NOT DETECTE) Imaging Data Chest x-ray: Attestation: I have reviewed the pertinent imaging results. Radiologist's impression: ITS Impressions Chest X-Ray 07/23/23 18:30 IMPRESSION: Lung markings felt to be unchanged without definite infiltrate or edema. No definite increasing pleural effusion although costophrenic angles are poorly defined as noted above. Electronically authenticated by: KEISHA KIM Date: 07/23/2023 19:08 ECG Data Attestation: ?I have reviewed the pertinent ECG results. Interpretation: Measurements Intervals [place] Rate: 75 P: 270 NV: 160 QRS: 66 QRSD: 88 T: 255 QT: 384 QTc: 413 Interpretive Statements [id number] Electronic atrial pacemaker [address] depression 4364 Tw[place] abnormality, possible anterolateral ischemia 4664 [place] abnormality, possible inferior ischemia 9150 abnormal ECG No previous ECG available for comparison Critical Care Time Critical Care Time Critical Care Time: Yes Total Critical Care Time: 35 Attestation: Due to the high probability of sudden and clinically significant deterioration in the patient's condition she required the highest level of my preparedness to intervene urgently I provided critical care time including documentation time, medication orders and management, reevaluation, vital sign assessment, ordering and reviewing of lab tests, ordering and reviewing of x-ray studies, and admission orders. Discharge Plan Discharge Chief Complaint: Shortness of Breath/Dyspnea Clinical Impression: Elevated brain natriuretic peptide (BNP) level, Dyspnea, Elevated troponin, Hypoxia Patient Disposition: Admitted As Inpatient Condition: Good
--- NOTE | 2023-07-23 18:41 | ECG_ITS ---
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
--- OUTSIDE RECORDS SUMMARY | 2023-07-23 18:43 | XMS_ITS | CCD ---
Author Name Unknown Address [address] [place] [address] Organization [facility] Care Team Providers Care Medical Field Representative Name Role Phone KEISHA DORADO JR Attending Unavailable PATRICIA CORDERO Primary Care Unavailable TAMIE FAJARDO Attending Unavailable UMAIR MANDUJANO Admitting Unavailable GASPER AVENDANO Referring Unavailable ЕКАТЕРИНА ROBERT Primary Care Unavailable Екатерина Robert Primary Care Physician [phone] DR ЕКАТЕРИНА CHARLES Consulting Unavailable JOSELINEY ., [...] Consulting Unavailable LINDA MARRERO Consulting Unavailable BETINA LAVAREZ Consulting Unavailable DR ЕКАТЕРИНА CHARLES Consulting Unavailable [...] source) bee venom Drug allergy (disorder) 1 [facility] Repository (1 source) house dust allergenic extract; 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: [HOUSE DUST] Drug Allergy 4 [facility] Repository (1 source) HAY FEVER AND ALLERGY RELIEF; 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: [HAY FEVER AND ALLERGY RELIEF] Propensity to adverse reactions to drug (disorder) 4 [facility] Repository Medications Current Medications Medication Drug Class(es) [...] oral solution (2 sources) alpha-Adrenergic Agonist, Uncompetitive U-pxftuk-T-aspart ate Receptor Antagonist, Sigma-1 Agonist Start: 08-10-19 [...] day(s), # 14 tab(s), Refills(s) 0, Pharmacy: [id number], 170.2, cm, 08/09/22 13:13:00 EDT, Height/Length [...] day(s), # 15 tab(s), Refills(s) 0, Pharmacy: [facility]5, 170.2, cm, 08/09/22 13:13:00 EDT, Height/Length [...] disease (6 sources) 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; 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: [Old [...] 2 Chronic Other aftercare (1 source) Other assisted (current) drug therapy; 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: [OTH 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 CURRENT DRUG THERAPY] Onset: 3 Episodic Other aftercare (1 source) 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 terminal manager (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) use of aspirin; 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: [LONG-TERM CURRENT USE OF ASPIRIN] Onset: 3 Episodic Other aftercare (1 source) shelter (current) use of antithrombotics/antipl atelets; 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: [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 ANTITHROMBOT/ANTIPLATL ETS] Onset: 3 Episodic Other aftercare (1 source) assistant terminal manager (current) use of oral hypoglycemic drugs; 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: [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 USE ORAL HYPOGLYCEMIC DX] Onset: 3 Episodic [...] Pts phone line is no t working [facility] 07-12-2023 36 Unable to reach pt o r leave message, phone line not in service [facility] 36 Patients phone is no t in working order. Tried calling pts ER contact but it is a food pantry and was only a VM option. Did not leave message. [facility] 07-11-2023 30 The patient is Moderately Stable - Low risk of patient condition declining or worsening The patient's goals for the shift include pain control The clinical goals for the shift include maintain pacemaker precautions Over the shift, the patient did not make progress toward the following goals. Barriers to progression include na. Recommendations to address these barriers include na. [facility] 30 The patient is Moderately Stable [...] safe level of function Outcome: Progressing Normal [facility] BASIC METABOLIC PANELon 06-15 Anion gap [Moles/Vol] 15 mmol/L Normal 7-20 [facility] Comment on above: Performed By: #### L [id number] #### [facility] ([facility]) [address] [place] [address] Calcium [Mass/Vol] 9.4 mg/dL Normal 8.6-10.3 [facility] Comment on above: Performed By: #### L [id number] #### [facility] ([facility]) [address] [place] [address] Chloride [Moles/Vol] 97 mmol/L Low 98-107 [facility] Comment on above: Performed By: #### L [id number] #### [facility] ([facility]) [address] [place] [address] CO2 [Moles/Vol] 27 mmol/L Normal 21-31 [facility] Comment on above: Performed By: #### L [id number] #### [facility] ([facility]) [address] [place] [address] Creatinine [Mass/Vol] 1.15 mg/dL Normal 0.60-1.20 [facility] Comment on above: Performed By: #### L [id number] #### [facility] ([facility]) [address] [place] [address] GLOMERULAR FILTRATION RATE ML/MIN/1.73 SQ M.PREDICTED 53.9 mL/min/1.73m*2 Low >60.0 [facility] Comment on above: Result Comment: The [facility]???s estimated glomerular filtration rate (eGFR) will no [...] individuals. Performed By: #### L [id number] #### [facility] ([facility]) [address] [address] Glucose [Mass/Vol] 143 mg/dL High 70-100 [facility] Comment on above: Performed By: #### L [id number] #### [facility] ([facility]) [address] [place] [address] Potassium [Moles/Vol] 3.9 mmol/L Normal 3.5-5.1 [facility] Comment on above: Performed By: #### L [id number] #### [facility] ([facility]) [address] [address] Sodium [Moles/Vol] 135 mmol/L Low 136-145 [facility] Comment on above: Performed By: #### L [id number] #### [facility] ([facility]) [address] [address] Urea nitrogen [Mass/Vol] 32 mg/dL High 7-25 [facility] Comment on above: Performed By: #### L [id number] #### [facility] ([facility]) [address] [place] [address] UREA NITROGEN/CREATININE (MASS RATIO) IN SER/PLAS 27.8 Normal [facility] Comment on above: Performed By: #### L [id number] #### [facility] ([facility]) [address] [place] [address] CBC WITH AUTO DIFFERENTIALon 07-11-2023 Basophils (Bld) [#/Vol] 0.03 10*3/uL Normal 0.00-0.20 [facility] Comment on above: Performed By: #### L [id number] #### [facility] ([facility]) [address] [place] [address] Basophils/100 WBC (Bld) 0.3 % Normal 0.0-1.0 [facility] Comment on above: Performed By: #### L [id number] #### [facility] ([facility]) [address] [place] [address] Eosinophils (Bld) [#/Vol] 0.32 10*3/uL Normal 0.00-0.50 [facility] Comment on above: Performed By: #### L [id number] #### [facility] ([facility]) [address] [place] [address] Eosinophils/100 WBC (Bld) 2.8 % Normal 0.0-6.0 [facility] Comment on above: Performed By: #### L [id number] #### [facility] ([facility]) [address] [place] [address] Erythrocyte distribution width (RBC) [Ratio] 15.3 % High 11.5-15.0 [facility] Comment on above: Performed By: #### L [id number] #### [facility] ([facility]) [address] [place] [address] ERYTHROCYTE MEAN CORPUSCULAR HEMOGLOBIN CONCENTRATION (G/DL) BY AUTOMATED 32.0 g/dL Normal 32.0-35.0 [facility] Comment on above: Performed By: #### L [id number] #### [facility] ([facility]) [address] [place] [address] Hematocrit (Bld) [Volume fraction] 40.9 % Normal 36.0-48.0 [facility] Comment on above: Performed By: #### L [id number] #### [facility] ([facility]) [address] [place] [address] Hemoglobin (Bld) [Mass/Vol] 13.1 g/dL Normal 12.0-15.0 [facility] Comment on above: Performed By: #### L [id number] #### [facility] ([facility]) [address] [address] Immature granulocytes (Bld) [#/Vol] 0.04 10*3/uL Normal 0.00-0.20 [facility] Comment on above: Performed By: #### L [id number] #### [facility] ([facility]) [address] [place] [address] Immature granulocytes/100 WBC (Bld) 0.3 % Normal 0.0-1.0 [facility] Comment on above: Performed By: #### L [id number] #### [facility] ([facility]) [address] [place] [address] Lymphocytes (Bld) [#/Vol] 3.16 10*3/uL Normal 1.20-4.00 [facility] Comment on above: Performed By: #### L [id number] #### [facility] ([facility]) [address] [place] [address] Lymphocytes/100 WBC (Bld) 27.4 % Normal 20.0-45.0 [facility] Comment on above: Performed By: #### L [id number] #### [facility] ([facility]) [address] [place] [address] MCH (RBC) [Entitic mass] 27.9 pg Normal 27.0-33.0 [facility] Comment on above: Performed By: #### L [id number] #### [facility] ([facility]) [address] [place] [address] MCV (RBC) [Entitic vol] 87.0 fL Normal 82.0-98.0 [facility] Comment on above: Performed By: #### L [id number] #### [facility] ([facility]) [address] [place] [address] Monocytes (Bld) [#/Vol] 0.85 10*3/uL Normal 0.10-1.00 [facility] Comment on above: Performed By: #### L [id number] #### [facility] ([facility]) [address] [place] [address] Monocytes/100 WBC (Bld) 7.4 % Normal 5.0-12.0 [facility] Comment on above: Performed By: #### L [id number] #### [facility] ([facility]) [address] [place] [address] Neutrophils (Bld) [#/Vol] 7.12 10*3/uL Normal 1.60-7.60 [facility] Comment on above: Performed By: #### L [id number] #### [facility] ([facility]) [address] [place] [address] Neutrophils/100 WBC (Bld) 61.8 % Normal 40.0-72.0 [facility] Comment on above: Performed By: #### L [id number] #### [facility] [address] [place] [address] NRBC (PER 100 WBCS) BY AUTOMATED COUNT 0.0 % Normal 0 [facility] Comment on above: Performed By: #### L [id number] #### [facility]) [address] [place] [address] PLATELETS (10*3/UL) IN BLOOD AUTOMATED COUNT 339 10*3/uL Normal 150-400 [facility] Comment on above: Performed By: #### L [id number] #### [facility] ([facility]) [address] [place] [address] RBC (Bld) [#/Vol] 4.70 10*6/uL Normal 3.80-5.00 [facility] Comment on above: Performed By: #### L [id number] #### [facility] ([facility]) [address] [place] [address] WBC (Bld) [#/Vol] 11.52 10*3/uL High 4.00-10.60 [facility] Comment on above: Performed By: #### L [id number] #### [facility] ([facility]) [address] [place] [address] 30on 07-10-2023 30 Problem: Pain - Adul [...] complex ne (more content not included)... Normal [facility] 30 Daily Case Managemen t Update Multidisciplinary [...] Consultation Consultation and Management 07/06/23 1050 Normal [facility] 30 The patient is Moderately Stable - [...] and behaviors that affect risk of falls [place] fall precautions as indicated by assessment Educate [...] and prevent overall improvement and discharge Normal [facility] BASIC METABOLIC PANELon 06-15 Anion gap [Moles/Vol] 13 mmol/L Normal 7-20 [facility] Comment on above: Performed By: #### L [id number] ####[facility] ([facility])[address] [place] [address] Calcium [Mass/Vol] 9.9 mg/dL Normal 8.6-10.3 [facility] Comment on above: Performed By: #### L [id number] ####[facility] ([facility])[address] [place] [address] Chloride [Moles/Vol] 97 mmol/L Low 98-107 [facility] Comment on above: Performed By: #### L [id number] ####[facility] (BEAKER)[address] [place] [address] CO2 [Moles/Vol] 30 mmol/L Normal 21-31 [facility] Comment on above: Performed By: #### L [id number] ####[facility] ([facility]ER)[address] [place] [address] Creatinine [Mass/Vol] 1.06 mg/dL Normal 0.60-1.20 [facility] Comment on above: Performed By: #### L [id number] ####[facility] ([facility] [place] [address] GLOMERULAR FILTRATION RATE ML/MIN/1.73 SQ M.PREDICTED 59.4 mL/min/1.73m*2 Low >60.0 [facility] Comment on above: Result Comment: The [facility]???s estimated glomerular filtration rate (eGFR) will no [...] of individuals. Performed By: #### L [id number] ####[facility] ([facility])[address] [place] [address] Glucose [Mass/Vol] 139 mg/dL High 70-100 [facility] Comment on above: Performed By: #### L [id number] ####[facility] ([facility])[address] [place] [address] Potassium [Moles/Vol] 3.9 mmol/L Normal 3.5-5.1 [facility] Comment on above: Performed By: #### L [id number] ####[facility] ([facility])[address] [place] [address] Sodium [Moles/Vol] 136 mmol/L Normal 136-145 [facility] Comment on above: Performed By: #### L [id number] ####[facility] ([facility] [place] [address] Urea nitrogen [Mass/Vol] 23 mg/dL Normal 7-25 [facility] Comment on above: Performed By: #### L [id number] ####[facility] ([facility])[address] [place] [address] UREA NITROGEN/CREATININE (MASS RATIO) IN SER/PLAS 21.7 Normal [facility] Comment on above: Performed By: #### L [id number] ####[facility] ([facility]ER)[address] [place] [address] CBC WITH AUTO DIFFERENTIALon 07-10-2023 Basophils (Bld) [#/Vol] 0.02 10*3/uL Normal 0.00-0.20 [facility] Comment on above: Performed By: #### L [id number] ####[facility] ([facility])[address] [place] [address] Basophils/100 WBC (Bld) 0.2 % Normal 0.0-1.0 [facility] Comment on above: Performed By: #### L [id number] ####[facility] ([facility])[address] [place] [address] Eosinophils (Bld) [#/Vol] 0.53 10*3/uL High 0.00-0.50 [facility] Comment on above: Performed By: #### L [id number] ####[facility] ([facility])[address] [place] [address] Eosinophils/100 WBC (Bld) 5.0 % Normal 0.0-6.0 [facility] Comment on above: Performed By: #### L [id number] ####[facility] ([facility])[address] [place] [address] Erythrocyte distribution width (RBC) [Ratio] 15.3 % High 11.5-15.0 [facility] Comment on above: Performed By: #### L [id number] ####[facility] ([facility])[address] [place] [address] ERYTHROCYTE MEAN CORPUSCULAR HEMOGLOBIN CONCENTRATION (G/DL) BY AUTOMATED 32.9 g/dL Normal 32.0-35.0 [facility] Comment on above: Performed By: #### L [id number] ####[facility] ([facility]AKER)[address] [place] [address] Hematocrit (Bld) [Volume fraction] 42.6 % Normal 36.0-48.0 [facility] Comment on above: Performed By: #### L [id number] ####[facility] ([facility]ER)[address] [place] [address] Hemoglobin (Bld) [Mass/Vol] 14.0 g/dL Normal 12.0-15.0 [facility] Comment on above: Performed By: #### L [id number] ####[facility] (BE[facility]ER)[address] [place] [address] Immature granulocytes (Bld) [#/Vol] 0.02 10*3/uL Normal 0.00-0.20 [facility] Comment on above: Performed By: #### L [id number] ####[facility] ([facility])[address] [place] [address] Immature granulocytes/100 WBC (Bld) 0.2 % Normal 0.0-1.0 [facility] Comment on above: Performed By: #### L [id number] ####[facility] ([facility])[address] [place] [address] Lymphocytes (Bld) [#/Vol] 3.34 10*3/uL Normal 1.20-4.00 [facility] Comment on above: Performed By: #### L [id number] ####[facility] ([facility]ER)[address] [place] [address] Lymphocytes/100 WBC (Bld) 31.7 % Normal 20.0-45.0 [facility] Comment on above: Performed By: #### L [id number] ####[facility] ([facility]AKER)[address] [place] [address] MCH (RBC) [Entitic mass] 28.3 pg Normal 27.0-33.0 [facility] Comment on above: Performed By: #### L [id number] ####[facility] (BE[facility]ER)[address] [place] [address] MCV (RBC) [Entitic vol] 86.2 fL Normal 82.0-98.0 [facility] Comment on above: Performed By: #### L [id number] ####[facility] (BEAKER)[address] [place] [address] Monocytes (Bld) [#/Vol] 0.60 10*3/uL Normal 0.10-1.00 [facility] Comment on above: Performed By: #### L [id number] ####[facility] ([facility]ER)[address] [place] [address] Monocytes/100 WBC (Bld) 5.7 % Normal 5.0-12.0 [facility] Comment on above: Performed By: #### L [id number] ####[facility] ([facility]ER)[address] [place] [address] Neutrophils (Bld) [#/Vol] 6.01 10*3/uL Normal 1.60-7.60 [facility] Comment on above: Performed By: #### L [id number] ####[facility] ([facility]ER)[address] [place] [address] Neutrophils/100 WBC (Bld) 57.2 % Normal 40.0-72.0 [facility] Comment on above: Performed By: #### L [id number] ####[facility] ([facility]ER)[address] [place] [address] NRBC (PER 100 WBCS) BY AUTOMATED COUNT 0.0 % Normal 0 [facility] Comment on above: Performed By: #### L [id number] ####[facility] ([facility])[address] [place] [address] PLATELETS (10*3/UL) IN BLOOD AUTOMATED COUNT 329 10*3/uL Normal 150-400 [facility] Comment on above: Performed By: #### L [id number] ####[facility] ([facility]ER)[address] [place] [address] RBC (Bld) [#/Vol] 4.94 10*6/uL Normal 3.80-5.00 [facility] Comment on above: Performed By: #### L [id number] ####[facility] ([facility]ER)[address] [place] [address] WBC (Bld) [#/Vol] 10.52 10*3/uL Normal 4.00-10.60 [facility] Comment on above: Performed By: #### L [id number] ####[facility] (ANDRIY)[address] [place] [place] [address] HPon 07-10-2023 HP History Of Present Illness [...] Problems: Junctional bradycardia Pacemaker Loree Chance MD [facility] 30on 07-09-2023 30 Problem: Cardiovascular - [...] shift include pacemaker placement without issues Normal [facility] 30 Daily Case Managemen t Update Multidisciplinary [...] Consultation Consultation and Management 07/06/23 1050 Normal [facility] BASIC METABOLIC PANELon 06-15 Anion gap [Moles/Vol] 9 mmol/L Normal 7-20 [facility] Comment on above: Performed By: #### L [id number] #### [facility] ([facility]) [address] [place] [address] Calcium [Mass/Vol] 9.1 mg/dL Normal 8.6-10.3 [facility] Comment on above: Performed By: #### L [id number] #### [facility] (AKER) [address] [place] [address] Chloride [Moles/Vol] 99 mmol/L Normal 98-107 [facility] Comment on above: Performed By: #### L [id number] #### [facility] (BEAKER) [address] [place] [address] CO2 [Moles/Vol] 32 mmol/L High 21-31 [facility] Comment on above: Performed By: #### L [id number] #### [facility] ([facility]AKER) [address] [place] [address] Creatinine [Mass/Vol] 0.98 mg/dL Normal 0.60-1.20 [facility] Comment on above: Performed By: #### L [id number] #### [facility] ([facility] [address] [place] [address] GLOMERULAR FILTRATION RATE ML/MIN/1.73 SQ M.PREDICTED 65.3 mL/min/1.73m*2 Normal >60.0 [facility] Comment on above: Result Comment: The [facility]???s estimated glomerular filtration rate (eGFR) will no [...] individuals. Performed By: #### L [id number] #### [facility] ([facility]) [address] [place] [address] Glucose [Mass/Vol] 131 mg/dL High 70-100 [facility] Comment on above: Performed By: #### L [id number] #### [facility] ([facility]) [address] [place] [address] Potassium [Moles/Vol] 4.3 mmol/L Normal 3.5-5.1 [facility] Comment on above: Performed By: #### L [id number] #### [facility] ([facility]) [address] [place] [address] Sodium [Moles/Vol] 136 mmol/L Normal 136-145 [facility] Comment on above: Performed By: #### L [id number] #### [facility] ([facility]) [address] [place] [address] Urea nitrogen [Mass/Vol] 23 mg/dL Normal 7-25 [facility] Comment on above: Performed By: #### L [id number] #### [facility] ([facility]) [address] [place] [address] UREA NITROGEN/CREATININE (MASS RATIO) IN SER/PLAS 23.5 Normal [facility] Comment on above: Performed By: #### L [id number] #### [facility] ([facility]) [address] [place] [address] CBC WITH AUTO DIFFERENTIALon 07-09-2023 Basophils (Bld) [#/Vol] 0.03 10*3/uL Normal 0.00-0.20 [facility] Comment on above: Performed By: #### L [id number] #### [facility] ([facility]) [address] [place] [address] Basophils/100 WBC (Bld) 0.3 % Normal 0.0-1.0 [facility] Comment on above: Performed By: #### L [id number] #### [facility] (BEAKER) [address] [place] [address] Eosinophils (Bld) [#/Vol] 0.54 10*3/uL High 0.00-0.50 [facility] Comment on above: Performed By: #### L [id number] #### [facility] [address] [place] [address] Eosinophils/100 WBC (Bld) 4.9 % Normal 0.0-6.0 [facility] Comment on above: Performed By: #### L [id number] #### [facility] ([facility]) [address] [place] [address] Erythrocyte distribution width (RBC) [Ratio] 15.0 % Normal 11.5-15.0 [facility] Comment on above: Performed By: #### L [id number] #### [facility] ([facility]) [address] [place] [address] ERYTHROCYTE MEAN CORPUSCULAR HEMOGLOBIN CONCENTRATION (G/DL) BY AUTOMATED 32.8 g/dL Normal 32.0-35.0 [facility] Comment on above: Performed By: #### L [id number] #### [facility] (BEAKER) [address] [place] [address] Hematocrit (Bld) [Volume fraction] 37.5 % Normal 36.0-48.0 [facility] Comment on above: Performed By: #### L [id number] #### [facility] ([facility]) [address] [place] [address] Hemoglobin (Bld) [Mass/Vol] 12.3 g/dL Normal 12.0-15.0 [facility] Comment on above: Performed By: #### L [id number] #### [facility] ([facility]) [address] [place] [address] Immature granulocytes (Bld) [#/Vol] 0.03 10*3/uL Normal 0.00-0.20 [facility] Comment on above: Performed By: #### L [id number] #### [facility] ([facility]) [address] [place] [address] Immature granulocytes/100 WBC (Bld) 0.3 % Normal 0.0-1.0 [facility] Comment on above: Performed By: #### L [id number] #### [facility] ([facility]) [address] [place] [address] Lymphocytes (Bld) [#/Vol] 3.76 10*3/uL Normal 1.20-4.00 [facility] Comment on above: Performed By: #### L [id number] #### [facility] ([facility]) [address] [place] [address] Lymphocytes/100 WBC (Bld) 34.1 % Normal 20.0-45.0 [facility] Comment on above: Performed By: #### L [id number] #### [facility] ([facility]) [address] [place] [address] MCH (RBC) [Entitic mass] 28.5 pg Normal 27.0-33.0 [facility] Comment on above: Performed By: #### L [id number] #### [facility] ([facility]) [address] [place] [address] MCV (RBC) [Entitic vol] 87.0 fL Normal 82.0-98.0 [facility] Comment on above: Performed By: #### L [id number] #### [facility] ([facility] [address] [place] [address] Monocytes (Bld) [#/Vol] 0.64 10*3/uL Normal 0.10-1.00 [facility] Comment on above: Performed By: #### L [id number] #### [facility] ([facility]) [address] [place] [address] Monocytes/100 WBC (Bld) 5.8 % Normal 5.0-12.0 [facility] Comment on above: Performed By: #### L [id number] #### [facility] ([facility]) [address] [place] [address] Neutrophils (Bld) [#/Vol] 6.03 10*3/uL Normal 1.60-7.60 [facility] Comment on above: Performed By: #### L [id number] #### [facility] ([facility]) [address] [place] [address] Neutrophils/100 WBC (Bld) 54.6 % Normal 40.0-72.0 [facility] Comment on above: Performed By: #### L [id number] #### [facility] ([facility]) [address] [place] [address] NRBC (PER 100 WBCS) BY AUTOMATED COUNT 0.0 % Normal 0 [facility] Comment on above: Performed By: #### L [id number] #### [facility] ([facility]) [address] [place] [address] PLATELETS (10*3/UL) IN BLOOD AUTOMATED COUNT 285 10*3/uL Normal 150-400 [facility] Comment on above: Performed By: #### L [id number] #### [facility] ([facility]) [address] [place] [address] RBC (Bld) [#/Vol] 4.31 10*6/uL Normal 3.80-5.00 [facility] Comment on above: Performed By: #### L [id number] #### [facility] ([facility]) [address] [place] [address] WBC (Bld) [#/Vol] 11.03 10*3/uL High 4.00-10.60 [facility] Comment on above: Performed By: #### L [id number] #### [facility] ([facility]) [address] [place] [address] 30on 07-08-2023 30 The patient is Moderately [...] Maintains adequate nutritional intake Outcome: Progressing Normal [facility] 30 Problem: Cardiovascular - Adult Goal: Maintains [...] for the shift include stable bp Normal [facility] BASIC METABOLIC PANELon 06-15 Anion gap [Moles/Vol] 10 mmol/L Normal 7-20 [facility] Comment on above: Performed By: #### L [id number] ####[facility] (AKER)[address] [place] [address] Calcium [Mass/Vol] 9.0 mg/dL Normal 8.6-10.3 [facility] Comment on above: Performed By: #### L [id number] ####[facility] ([facility] [place] [place] [address] Chloride [Moles/Vol] 97 mmol/L Low 98-107 [facility] Comment on above: Performed By: #### L [id number] ####[facility] (BEAKER)[address] [place] [place] [address] CO2 [Moles/Vol] 33 mmol/L High 21-31 [facility] Comment on above: Performed By: #### L [id number] ####[facility] (BEAKER)[address] [place] [address] Creatinine [Mass/Vol] 1.30 mg/dL High 0.60-1.20 [facility] Comment on above: Performed By: #### L [id number] ####[facility] ([facility])[address] [place] [address] GLOMERULAR FILTRATION RATE ML/MIN/1.73 SQ M.PREDICTED 46.5 mL/min/1.73m*2 Low >60.0 [facility] Comment on above: Result Comment: The [facility]???s estimated glomerular filtration rate (eGFR) will no [...] of individuals. Performed By: #### L [id number] ####[facility] ([facility])[address] [place] [address] Glucose [Mass/Vol] 214 mg/dL High 70-100 [facility] Comment on above: Performed By: #### L [id number] ####[facility] ([facility])[address] [place] [address] Potassium [Moles/Vol] 3.9 mmol/L Normal 3.5-5.1 [facility] Comment on above: Performed By: #### L [id number] ####[facility] ([facility])[address] [place] [address] Sodium [Moles/Vol] 136 mmol/L Normal 136-145 [facility] Comment on above: Performed By: #### L [id number] ####[facility] ([facility])[address] [place] [address] Urea nitrogen [Mass/Vol] 26 mg/dL High 7-25 [facility] Comment on above: Performed By: #### L [id number] ####[facility] ([facility])[address] [place] [address] UREA NITROGEN/CREATININE (MASS RATIO) IN SER/PLAS 20.0 Normal [facility] Comment on above: Performed By: #### L [id number] ####[facility] ([facility])[address] [place] [address] CBC WITH AUTO DIFFERENTIALon 07-08-2023 Basophils (Bld) [#/Vol] 0.04 10*3/uL Normal 0.00-0.20 [facility] Comment on above: Performed By: #### L [id number] #### [facility] ([facility]) [address] [place] [address] Basophils/100 WBC (Bld) 0.3 % Normal 0.0-1.0 [facility] Comment on above: Performed By: #### L [id number] #### [facility] ([facility]) [address] [place] [address] Eosinophils (Bld) [#/Vol] 0.51 10*3/uL High 0.00-0.50 [facility] Comment on above: Performed By: #### L [id number] #### [facility] ([facility]) [address] [place] [address] Eosinophils/100 WBC (Bld) 4.1 % Normal 0.0-6.0 [facility] Comment on above: Performed By: #### L [id number] #### [facility] ([facility]) [address] [place] [address] Erythrocyte distribution width (RBC) [Ratio] 15.0 % Normal 11.5-15.0 [facility] Comment on above: Performed By: #### L [id number] #### [facility] ([facility]) [address] [place] [address] ERYTHROCYTE MEAN CORPUSCULAR HEMOGLOBIN CONCENTRATION (G/DL) BY AUTOMATED 31.9 g/dL Low 32.0-35.0 [facility] Comment on above: Performed By: #### L [id number] #### [facility] ([facility]) [address] [place] [address] Hematocrit (Bld) [Volume fraction] 37.9 % Normal 36.0-48.0 [facility] Comment on above: Performed By: #### L [id number] #### [facility] ([facility]ER) [address] [place] [address] Hemoglobin (Bld) [Mass/Vol] 12.1 g/dL Normal 12.0-15.0 [facility] Comment on above: Performed By: #### L [id number] #### [facility] ([facility]ER) [address] [place] [address] Immature granulocytes (Bld) [#/Vol] 0.04 10*3/uL Normal 0.00-0.20 [facility] Comment on above: Performed By: #### L [id number] #### [facility] ([facility] [address] [place] [address] Immature granulocytes/100 WBC (Bld) 0.3 % Normal 0.0-1.0 [facility] Comment on above: Performed By: #### L [id number] #### [facility] ([facility]ER) [address] [place] [address] Lymphocytes (Bld) [#/Vol] 4.00 10*3/uL Normal 1.20-4.00 [facility] Comment on above: Performed By: #### L [id number] #### [facility] ([facility]ER) [address] [place] [address] Lymphocytes/100 WBC (Bld) 32.1 % Normal 20.0-45.0 [facility] Comment on above: Performed By: #### L [id number] #### [facility] ([facility]ER) [address] [place] [address] MCH (RBC) [Entitic mass] 28.1 pg Normal 27.0-33.0 [facility] Comment on above: Performed By: #### L [id number] #### [facility] ([facility]ER) [address] [place] [address] MCV (RBC) [Entitic vol] 87.9 fL Normal 82.0-98.0 [facility] Comment on above: Performed By: #### L [id number] #### [facility] ([facility]) [address] [place] [address] Monocytes (Bld) [#/Vol] 0.85 10*3/uL Normal 0.10-1.00 [facility] Comment on above: Performed By: #### L [id number] #### [facility] ([facility]) [address] [place] [address] Monocytes/100 WBC (Bld) 6.8 % Normal 5.0-12.0 [facility] Comment on above: Performed By: #### L [id number] #### [facility] ([facility]) [address] [place] [address] Neutrophils (Bld) [#/Vol] 7.02 10*3/uL Normal 1.60-7.60 [facility] Comment on above: Performed By: #### L [id number] #### [facility] ([facility]) [address] [place] [address] Neutrophils/100 WBC (Bld) 56.4 % Normal 40.0-72.0 [facility] Comment on above: Performed By: #### L [id number] #### [facility] ([facility]) [address] [place] [address] NRBC (PER 100 WBCS) BY AUTOMATED COUNT 0.0 % Normal 0 [facility] Comment on above: Performed By: #### L [id number] #### [facility] ([facility]) [address] [place] [address] PLATELETS (10*3/UL) IN BLOOD AUTOMATED COUNT 301 10*3/uL Normal 150-400 [facility] Comment on above: Performed By: #### L [id number] #### [facility] ([facility]) [address] [place] [address] RBC (Bld) [#/Vol] 4.31 10*6/uL Normal 3.80-5.00 [facility] Comment on above: Performed By: #### L [id number] #### [facility] ([facility]AKER) [address] [place] [address] WBC (Bld) [#/Vol] 12.46 10*3/uL High 4.00-10.60 [facility] Comment on above: Performed By: #### L [id number] #### [facility] (BEAKER) [address] [place] [address] 30on 07-07-2023 30 The patient is Moderately Stable - Low risk of patient condition declining or worsening The patient's goals for the shift include comfort The clinical goals for the shift include vss Normal [facility] 30 Problem: Cardiovascular - Adult Goal: Maintains [...] comfort lev (more content not included)... Normal [facility] BASIC METABOLIC PANELon 02- Anion gap [Moles/Vol] 12 mmol/L Normal 7-20 [facility] Comment on above: Performed By: #### L [id number] #### [facility] ([facility]) [address] [place] [address] Calcium [Mass/Vol] 9.2 mg/dL Normal 8.6-10.3 [facility] Comment on above: Performed By: #### L [id number] #### [facility] ([facility]) [address] [place] [address] Chloride [Moles/Vol] 97 mmol/L Low 98-107 [facility] Comment on above: Performed By: #### L [id number] #### [facility] ([facility]) [address] [place] [address] CO2 [Moles/Vol] 31 mmol/L Normal 21-31 [facility] Comment on above: Performed By: #### L [id number] #### [facility] ([facility]) [address] [place] [address] Creatinine [Mass/Vol] 1.06 mg/dL Normal 0.60-1.20 [facility] Comment on above: Performed By: #### L [id number] #### [facility] ([facility]) [address] [place] [address] GLOMERULAR FILTRATION RATE ML/MIN/1.73 SQ M.PREDICTED 59.4 mL/min/1.73m*2 Low >60.0 [facility] Comment on above: Result Comment: The [facility]???s estimated glomerular filtration rate (eGFR) will no [...] individuals. Performed By: #### L [id number] #### [facility] ([facility]) [address] [place] [address] Glucose [Mass/Vol] 119 mg/dL High 70-100 [facility] Comment on above: Performed By: #### L [id number] #### [facility] ([facility]) [address] [place] [address] Potassium [Moles/Vol] 4.6 mmol/L Normal 3.5-5.1 [facility] Comment on above: Performed By: #### L [id number] #### [facility] ([facility]) [address] [place] [address] Sodium [Moles/Vol] 135 mmol/L Low 136-145 [facility] Comment on above: Performed By: #### L [id number] #### [facility] ([facility]) [address] [place] [address] Urea nitrogen [Mass/Vol] 21 mg/dL Normal 7-25 [facility] Comment on above: Performed By: #### L [id number] #### [facility] ([facility]) [address] [place] [address] UREA NITROGEN/CREATININE (MASS RATIO) IN SER/PLAS 19.8 Normal [facility] Comment on above: Performed By: #### L [id number] #### [facility] ([facility]) [address] [place] [address] CBC WITH AUTO DIFFERENTIALon 07-07-2023 Basophils (Bld) [#/Vol] 0.05 10*3/uL Normal 0.00-0.20 [facility] Comment on above: Performed By: #### L [id number] #### [facility] ([facility]) [address] [place] [address] Basophils/100 WBC (Bld) 0.3 % Normal 0.0-1.0 [facility] Comment on above: Performed By: #### L [id number] #### [facility] ([facility]) [address] [place] [address] Eosinophils (Bld) [#/Vol] 0.38 10*3/uL Normal 0.00-0.50 [facility] Comment on above: Performed By: #### L [id number] #### [facility] ([facility]) [address] [place] [address] Eosinophils/100 WBC (Bld) 2.5 % Normal 0.0-6.0 [facility] Comment on above: Performed By: #### L [id number] #### [facility] ([facility]) [address] [place] [address] Erythrocyte distribution width (RBC) [Ratio] 15.5 % High 11.5-15.0 [facility] Comment on above: Performed By: #### L [id number] #### [facility] ([facility]) [address] [place] [address] ERYTHROCYTE MEAN CORPUSCULAR HEMOGLOBIN CONCENTRATION (G/DL) BY AUTOMATED 32.0 g/dL Normal 32.0-35.0 [facility] Comment on above: Performed By: #### L [id number] #### [facility] ([facility]) [address] [place] [address] Hematocrit (Bld) [Volume fraction] 38.8 % Normal 36.0-48.0 [facility] Comment on above: Performed By: #### L [id number] #### [facility] ([facility]) [address] [place] [address] Hemoglobin (Bld) [Mass/Vol] 12.4 g/dL Normal 12.0-15.0 [facility] Comment on above: Performed By: #### L [id number] #### [facility] ([facility]) [address] [place] [place] [address] Immature granulocytes (Bld) [#/Vol] 0.05 10*3/uL Normal 0.00-0.20 [facility] Comment on above: Performed By: #### L [id number] #### [facility] ([facility]) [address] [place] [address] Immature granulocytes/100 WBC (Bld) 0.3 % Normal 0.0-1.0 [facility] Comment on above: Performed By: #### L [id number] #### [facility] ([facility]) [address] [place] [address] Lymphocytes (Bld) [#/Vol] 3.99 10*3/uL Normal 1.20-4.00 [facility] Comment on above: Performed By: #### L [id number] #### [facility] ([facility]) [address] [place] [address] Lymphocytes/100 WBC (Bld) 26.5 % Normal 20.0-45.0 [facility] Comment on above: Performed By: #### L [id number] #### [facility] ([facility]) [address] [place] [address] MCH (RBC) [Entitic mass] 27.9 pg Normal 27.0-33.0 [facility] Comment on above: Performed By: #### L [id number] #### [facility] ([facility]) [address] [place] [address] MCV (RBC) [Entitic vol] 87.4 fL Normal 82.0-98.0 [facility] Comment on above: Performed By: #### L [id number] #### [facility] ([facility]) [address] [place] [address] Monocytes (Bld) [#/Vol] 1.25 10*3/uL High 0.10-1.00 [facility] Comment on above: Performed By: #### L [id number] #### [facility] ([facility] [address] [place] [address] Monocytes/100 WBC (Bld) 8.3 % Normal 5.0-12.0 [facility] Comment on above: Performed By: #### L [id number] #### [facility] ([facility]) [address] [place] [address] Neutrophils (Bld) [#/Vol] 9.31 10*3/uL High 1.60-7.60 [facility] Comment on above: Performed By: #### L [id number] #### [facility] ([facility]) [address] [place] [place] [address] Neutrophils/100 WBC (Bld) 62.1 % Normal 40.0-72.0 [facility] Comment on above: Performed By: #### L [id number] #### [facility] ([facility]) [address] [place] [address] NRBC (PER 100 WBCS) BY AUTOMATED COUNT 0.0 % Normal 0 [facility] Comment on above: Performed By: #### L [id number] #### [facility] ([facility]) [address] [place] [address] PLATELETS (10*3/UL) IN BLOOD AUTOMATED COUNT 300 10*3/uL Normal 150-400 [facility] Comment on above: Performed By: #### L [id number] #### [facility] ([facility]) [address] [place] [address] RBC (Bld) [#/Vol] 4.44 10*6/uL Normal 3.80-5.00 [facility] Comment on above: Performed By: #### L [id number] #### [facility] ([facility]) [address] [place] [address] WBC (Bld) [#/Vol] 15.03 10*3/uL High 4.00-10.60 [facility] Comment on above: Performed By: #### L [id number] #### [facility] ([facility]) [address] [place] [address] MAGNESIUMon 07-07-2023 Magnesium [Mass/Vol] 2.3 mg/dL Normal 1.9-2.7 [facility] Comment on above: Performed By: #### L [id number] #### [facility] (BE[facility]ER) [address] [place] [address] 30on 07-06-2023 30 Daily Case Managemen t [...] of Consultation Consultation and Management 07/06/23 1050 [facility] 30 The patient is Moderately Stable [...] monitored and maintained or improved Outcome: Progressing [facility] 30 The patient is Moderately Stable - Low risk of patient condition declining or worsening The patient's goals for the shift include comfort The clinical goals for the shift include VSS [facility] 30 The patient is Moderately Stable - Low risk of patient condition declining or worsening The patient's goals for the shift include comfort The clinical goals for the shift include VSS [facility] APTTon 07-06-2023 ACTIVATED PARTIAL THROMBOPLASTIN TIME IN PPP BY COAGULATION ASSAY 25.3 Seconds Normal 25.0-35.0 [facility] Comment on above: Result Comment: Clin ical significance of the APTT is questionable in the presence of heparin. Performed By: #### L [id number] #### [facility] ([facility]) [address] [place] [address] B-TYPE NATRIURETIC PEPTIDEon 07-06-2023 Natriuretic peptide B (Bld) [Mass/Vol] 721 pg/mL High 0-100 [facility] Comment on above: Performed By: #### L [id number] #### [facility] ([facility]) [address] [place] [address] BLOOD CULTUREon 07-06-2023 Bacteria identified Cx Nom (Bld) No growth at 5 days Normal [facility] Comment on above: Performed By: #### L [id number] ####[facility] ([facility])[address] [place] [address] Order Comment: From a different site than #1. Performed By: #### L [id number] #### [facility] ([facility]) [address] [place] [address] CBC WITH AUTO DIFFERENTIALon 07-06-2023 Basophils (Bld) [#/Vol] 0.03 10*3/uL Normal 0.00-0.20 [facility] Comment on above: Performed By: #### L [id number] ####[facility] ([facility])[address] [place] [address] Basophils/100 WBC (Bld) 0.2 % Normal 0.0-1.0 [facility] Comment on above: Performed By: #### L [id number] ####[facility] ([facility])[address] [place] [address] Eosinophils (Bld) [#/Vol] 0.11 10*3/uL Normal 0.00-0.50 [facility] Comment on above: Performed By: #### L [id number] ####[facility] (BE[facility]ER)[address] [place] [place] [address] Eosinophils/100 WBC (Bld) 0.8 % Normal 0.0-6.0 [facility] Comment on above: Performed By: #### L [id number] ####[facility] ([facility])[address] [place] [address] Erythrocyte distribution width (RBC) [Ratio] 15.1 % High 11.5-15.0 [facility] Comment on above: Performed By: #### L [id number] ####[facility] ([facility])[address] [place] [address] ERYTHROCYTE MEAN CORPUSCULAR HEMOGLOBIN CONCENTRATION (G/DL) BY AUTOMATED 32.3 g/dL Normal 32.0-35.0 [facility] Comment on above: Performed By: #### L [id number] ####[facility] (BEAKER)[address] [place] [address] Hematocrit (Bld) [Volume fraction] 39.0 % Normal 36.0-48.0 [facility] Comment on above: Performed By: #### L [id number] ####[facility] (BEAKER)[address] [place] [address] Hemoglobin (Bld) [Mass/Vol] 12.6 g/dL Normal 12.0-15.0 [facility] Comment on above: Performed By: #### L [id number] ####[facility] (BEAKER)[address] [place] [address] Immature granulocytes (Bld) [#/Vol] 0.04 10*3/uL Normal 0.00-0.20 [facility] Comment on above: Performed By: #### L [id number] ####[facility] (BEAKER)[address] [place] [address] Immature granulocytes/100 WBC (Bld) 0.3 % Normal 0.0-1.0 [facility] Comment on above: Performed By: #### L [id number] ####[facility] (BEAKER)[address] [place] [address] Lymphocytes (Bld) [#/Vol] 2.75 10*3/uL Normal 1.20-4.00 [facility] Comment on above: Performed By: #### L [id number] ####[facility] ([facility]AKER)[address] [place] [address] Lymphocytes/100 WBC (Bld) 19.1 % Low 20.0-45.0 [facility] Comment on above: Performed By: #### L [id number] ####[facility] (BEAKER)[address] [place] [address] MCH (RBC) [Entitic mass] 27.9 pg Normal 27.0-33.0 [facility] Comment on above: Performed By: #### L [id number] ####[facility] (BEAKER)[address] [place] [address] MCV (RBC) [Entitic vol] 86.5 fL Normal 82.0-98.0 [facility] Comment on above: Performed By: #### L [id number] ####[facility] (BEAKER)[address] [place] [address] Monocytes (Bld) [#/Vol] 1.31 10*3/uL High 0.10-1.00 [facility] Comment on above: Performed By: #### L [id number] ####[facility] (BEAKER)[address] [place] [address] Monocytes/100 WBC (Bld) 9.1 % Normal 5.0-12.0 [facility] Comment on above: Performed By: #### L [id number] ####[facility] (BEAKER)[address] [place] [address] Neutrophils (Bld) [#/Vol] 10.18 10*3/uL High 1.60-7.60 [facility] Comment on above: Performed By: #### L [id number] ####[facility] (BEAKER)[address] [place] [address] Neutrophils/100 WBC (Bld) 70.5 % Normal 40.0-72.0 [facility] Comment on above: Performed By: #### L [id number] ####[facility] ([facility] [place] [address] NRBC (PER 100 WBCS) BY AUTOMATED COUNT 0.0 % Normal 0 [facility] Comment on above: Performed By: #### L [id number] ####[facility] ([facility] [place] [address] PLATELETS (10*3/UL) IN BLOOD AUTOMATED COUNT 321 10*3/uL Normal 150-400 [facility] Comment on above: Performed By: #### L [id number] ####[facility] ([facility])[address] [place] [address] RBC (Bld) [#/Vol] 4.51 10*6/uL Normal 3.80-5.00 [facility] Comment on above: Performed By: #### L [id number] ####[facility] ([facility])[address] [place] [address] WBC (Bld) [#/Vol] 14.42 10*3/uL High 4.00-10.60 [facility] Comment on above: Performed By: #### L [id number] ####[facility] ([facility])[address] [place] [address] CKon 07-06-2023 CREATINE KINASE (U/L) IN SER/PLAS 36.0 U/L Normal 30.0-223.0 [facility] Comment on above: Performed By: #### L [id number] #### [facility] ([facility] [address] [place] [address] COMPREHENSIVE METABOLIC PANE Pollo 07-06-2023 Albumin [Mass/Vol] 4.6 g/dL Normal 3.5-5.7 [facility] Comment on above: Performed By: #### L [id number] #### [facility] (BEAKER) [address] [place] [address] ALP [Catalytic activity/Vol] 47 U/L Normal 34-104 [facility] Comment on above: Performed By: #### L [id number] #### [facility] ([facility]ER) [address] [place] [address] ALT [Catalytic activity/Vol] 13 U/L Normal 7-52 [facility] Comment on above: Performed By: #### L [id number] #### [facility] ([facility]ER) [address] [place] [address] Anion gap [Moles/Vol] 14 mmol/L Normal 7-20 [facility] Comment on above: Performed By: #### L [id number] #### [facility] ([facility]) [address] [place] [address] AST [Catalytic activity/Vol] 17 U/L Normal 13-39 [facility] Comment on above: Performed By: #### L [id number] #### [facility] ([facility] [address] [place] [address] Bilirubin [Mass/Vol] 0.5 mg/dL Normal 0.3-1.0 [facility] Comment on above: Performed By: #### L [id number] #### [facility] ([facility] [address] [place] [address] Calcium [Mass/Vol] 8.9 mg/dL Normal 8.6-10.3 [facility] Comment on above: Performed By: #### L [id number] #### [facility] ([facility]ER) [address] [place] [address] Chloride [Moles/Vol] 98 mmol/L Normal 98-107 [facility] Comment on above: Performed By: #### L [id number] #### [facility] ([facility]ER) [address] [place] [address] CO2 [Moles/Vol] 28 mmol/L Normal 21-31 [facility] Comment on above: Performed By: #### L [id number] #### [facility] ([facility]AKER) [address] [place] [address] Creatinine [Mass/Vol] 1.23 mg/dL High 0.60-1.20 [facility] Comment on above: Performed By: #### L [id number] #### [facility] ([facility]) [address] [place] [address] GLOMERULAR FILTRATION RATE ML/MIN/1.73 SQ M.PREDICTED 49.7 mL/min/1.73m*2 Low >60.0 [facility] Comment on above: Result Comment: The [facility]???s estimated glomerular filtration rate (eGFR) will no [...] individuals. Performed By: #### L [id number] #### [facility] ([facility]) [address] [place] [address] Glucose [Mass/Vol] 119 mg/dL High 70-100 [facility] Comment on above: Performed By: #### L [id number] #### [facility] ([facility]) [address] [place] [address] Potassium [Moles/Vol] 4.6 mmol/L Normal 3.5-5.1 [facility] Comment on above: Performed By: #### L [id number] #### [facility] ([facility]) [address] [place] [address] Protein [Mass/Vol] 6.8 g/dL Normal 6.0-8.3 [facility] Comment on above: Performed By: #### L [id number] #### [facility] ([facility]) [address] [place] [address] Sodium [Moles/Vol] 135 mmol/L Low 136-145 [facility] Comment on above: Performed By: #### L [id number] #### [facility] (BEAKER) [address] [place] [address] Urea nitrogen [Mass/Vol] 23 mg/dL Normal 7-25 [facility] Comment on above: Performed By: #### L [id number] #### [facility] (BEAKER) [address] [place] [address] UREA NITROGEN/CREATININE (MASS RATIO) IN SER/PLAS 18.7 Normal [facility] Comment on above: Performed By: #### L [id number] #### [facility] (BEAKER) [address] [place] [address] CONSULTon 07-06-2023 CONSULT - Attestation signed by [...] of bradycardia. Patient has been transferred to [facility] for consideration of pacemaker placement. As per [...] -- -- 7 (more content not included)... [facility] ED Clinical Summaryon 2023 ED Clinical Summary [place] [id number] ED Clinical Summary Person Information Name: VIVIAN VANN[place] Age: 63 Years : 1960 Sex: Female Language: Bahamian PCP: Екатерина Robert MD Marital Status: Phone: [...] 07/05/2023 22:16:25 07/05/2023 22:16:25 07/05/2023 22:16:25 ADDRESS: [facility] [id number] PHYS DOC NOTES: MEDICAL INFORMATION: Prescriptions Given: [...] 3:Tobacco abuse; 4:CHF (congestive heart failure) Normal [facility] ED Patient Education Noteon 07-06-2023 ED Patient Education Note Normal [facility] ED Patient Summaryon 024 ED Patient Summary [place] [id number] Patient Discharge Instructions Person Information Name: VIVIAN VANN Age: 63 Years Arrival Date: 07/05/2023 15:01:40 Discharge Diagnosis: 1:Atrial fibrillation with slow ventricular response; 2:Elevated troponin; 3:Tobacco abuse; 4:CHF (congestive heart failure) Primary Care Physician: Екатерина Rboert MD Provider Information Primary Provider: Arsenio Martin DO [employer] Back Tender:None The exam and treatment you received in the Emergency Department were for an urgent problem and are not intended as complete care. It is important that you follow up with a doctor, nurse practitioner, or physician?s assistant signal maintainer for ongoing care. If your symptoms become [...] opioids can be used to help relieve giuogcda-ef-nfcuqi pain and are often prescribed following a [...] be struggling with addiction, tell your health child care worker and ask for guidance or call [facility]?S National Helpline at 0-298-662-VNSL. n Source: [place] Department of Health and Human Services/Center for Disease Control & Preve (more content not included)... Normal [facility] ETHANOLon 07-06-2023 ETHANOL (MG/DL) IN SER/PLAS <10 Normal [facility] Comment on above: Performed By: #### L [id number] #### [facility] (BEAKER) [address] [place] [address] ETHANOL CALCULATED (%) Normal [facility] Comment on above: Performed By: #### L [id number] #### [facility] ([facility] [address] [place] [address] HEMOGLOBIN A1Con 07-06-2023 Glucose [Mass/Vol] 148 mg/dL Normal [facility] Comment on above: Performed By: #### L [id number] #### [facility] ([facility] [address] [place] [address] HbA1c (Bld) [Mass fraction] 6.8 % High 4.0-6.0 [facility] Comment on above: Performed By: #### L [id number] #### [facility] ([facility] [address] [place] [address] LACTIC ACID WITH 4 HOUR REFL EXon 07-06-2023 LACTATE (MMOL/L) IN SER/PLAS 1.8 mmol/L Normal 0.5-2.2 [facility] Comment on above: Performed By: #### L [id number] #### [facility] (BEAKER) [address] [place] [address] LIPID PANELon 07-06-2023 CHOL/HDL 3.0 mg/dL Normal [facility] Comment on above: Performed By: #### L [id number] #### [facility] (BEAKER) [address] [place] [address] Cholesterol [Mass/Vol] 143 mg/dL Normal 120-200 [facility] Comment on above: Performed By: #### L [id number] #### [facility] (BEAKER) [address] [place] [address] Magnesium [Mass/Vol] 159 mg/dL High 40-149 [facility] Comment on above: Result Comment: TRIG LYCERIDE REFERENCE RANGE: 20 YEARS AND OLDER CARDIOVASCULAR RISK LESS THAN 150 mg/dL LOW RISK 150 TO 199 mg/dL BORDERLINE RISK 200 mg/dL AND GREATER HIGH RISK Performed By: #### L [id number] #### [facility] ([facility]) [address] [place] [address] Magnesium [Mass/Vol] 63 mg/dL Normal 0-160 [facility] Comment on above: Performed By: #### L [id number] #### [facility] ([facility]) [address] [place] [address] Magnesium [Mass/Vol] 48 mg/dL Normal 23-92 [facility] Comment on above: Performed By: #### L [id number] #### [facility] ([facility]) [address] [place] [address] NON HDL CHOL. (LDL+VLDL) 95 Normal [facility] Comment on above: Performed By: #### L [id number] #### [facility] ([facility]) [address] [place] [address] TOTAL VLDL-C 32 mg/dL Normal 0-40 [facility] Comment on above: Performed By: #### L [id number] #### [facility] ([facility]) [address] [place] [address] MAGNESIUMon 07-06-2023 Magnesium [Mass/Vol] 2.2 mg/dL Normal 1.9-2.7 [facility] Comment on above: Performed By: #### L [id number] #### [facility] (BEAKER) [address] [place] [address] PHOSPHORUSon 07-06-2023 Magnesium [Mass/Vol] 5.2 mg/dL High 2.5-5.0 [facility] Comment on above: Performed By: #### L [id number] #### [facility] (BEAKER) [address] [place] [address] PROTIME-INRon 07-06-2023 INR IN PPP BY COAGULATION ASSAY 1.00 Normal 0.90-1.10 [facility] Comment on above: Result Comment: [facility] P RECOMMENDED INR FOR WARFARIN THERAPY CONDITION [...] 1995;108:[id number]-246S. Performed By: #### L [id number] #### [facility] (BEAKER) [address] [place] [address] PROTHROMBIN TIME (PT) IN PPP BY COAGULATION ASSAY 13.2 Seconds Normal 12.3-14.8 [facility] Comment on above: Performed By: #### L [id number] #### [facility] (BEAKER) [address] [place] [address] TOXICOLOGY PANEL URINEon AMPHETAMINE+METHAMPHET AMINE SCREEN (PRESENCE) IN URINE Negative Normal Negative [facility] Comment on above: Performed By: #### L [id number] #### [facility] (BEAKER) [address] [place] [address] BARBITURATES PRESENCE IN URINE BY SCREEN METHOD Negative Normal Negative [facility] Comment on above: Performed By: #### L [id number] #### [facility] (BEAKER) [address] [place] [address] Benzodiazepines Ql (U) Positive Abnormal Negative Un [facility] Comment on above: Performed By: #### L [id number] #### [facility] (BEAKER) [address] [place] [address] CANNABINOID (PRESENCE) IN URINE BY SCREEN METHOD Positive Abnormal Negative [facility] Comment on above: Performed By: #### L [id number] #### [facility] (BEAKER) [address] [place] [address] Cocaine Ql (U) Negative Normal Negative [facility] Comment on above: Performed By: #### L [id number] #### [facility] ([facility] [address] [place] [address] METHADONE (PRESENCE) IN URINE BY SCREEN METHOD Negative Normal Negative [facility] Comment on above: Performed By: #### L [id number] #### [facility] (BEAKER) [address] [place] [address] OPIATES (PRESENCE) IN URINE BY SCREEN METHOD Negative Normal Negative [facility] Comment on above: Performed By: #### L [id number] #### [facility] (BEAKER) [address] [place] [address] PHENCYCLIDINE PRESENCE IN URINE BY SCREEN METHOD Negative Normal Negative [facility] Comment on above: Performed By: #### L [id number] #### [facility] (BEAKER) [address] [place] [address] Propoxyphene Screen Ql (U) Negative Normal Negative [facility] Comment on above: Performed By: #### L [id number] #### [facility] (BEAKER) [address] [place] [address] TRICYCLIC ANTIDEPRESSANTS (PRESENCE) IN URINE Positive Abnormal Negative [facility] Comment on above: Performed By: #### L [id number] #### [facility] (BEAKER) [address] [place] [address] TROPONIN Ion 07-06-2023 Troponin I.cardiac [Mass/Vol] 0.12 ng/mL Critically high 0.00-0.04 [facility] Comment on above: Result Comment: M-LA EVIOUS CRITICAL RESULT Previous result verified on 07/06/2023 1236 on specimen/case [id number] called with component Troponin I for procedure Troponin I with value 0.11 ng/mL. Performed By: #### L [id number] #### [facility] ([facility]) [address] [place] [address] Troponin I.cardiac [Mass/Vol] 0.11 ng/mL Critically high 0.00-0.04 [facility] Comment on above: Result Comment: M-LA EVIOUS CRITICAL RESULT Previous result verified on 07/06/2023 0444 on specimen/case [id number] called with component Troponin I for procedure Troponin I with value 0.12 ng/mL. Performed By: #### L [id number] #### [facility] ([facility]) [address] [place] [address] Troponin I.cardiac [Mass/Vol] 0.12 ng/mL Critically high 0.00-0.04 [facility] Comment on above: Result Comment: M-CR ITICAL RESULT(S) REVIEWED, CALLED TO AND READ BACK BY PRIYANKA LEOS RN AT 0442 M-TROPONIN INITIAL CRITICAL HIGH; RESPUN AND RETESTED Performed By: #### L [id number] #### [facility] ([facility]) [address] [place] [address] TSH3 REFLEX TO FT4on 024 THYROTROPIN (MIU/L) IN SER/PLAS BY DETECTION LIMIT <= 0.05 MIU/L 4.25 mIU/L Normal 0.34-5.60 [facility] Comment on above: Performed By: #### L [id number] #### [facility] ([facility]) [address] [place] [address] Transfer Documentson 024 Transfer Documents [id number]# 1.00TIFF Normal [facility] URINALYSIS WITH REFLEX CULTU REon 07-06-2023 BILIRUBIN, TOTAL PRESENCE IN URINE Negative Normal Negative [facility] Comment on above: Order Comment: Micro scopics not performed on urines with negative chemical reactions unless requested on original order. Performed By: #### L [id number] #### [facility] (BEAKER) [address] [place] [address] Clarity (U) Clear Normal Clear [facility] Comment on above: Order Comment: Micro scopics not performed on urines with negative chemical reactions unless requested on original order. Performed By: #### L [id number] #### [facility] (BEAKER) [address] [place] [address] Color (U) Yellow Normal Yellow [facility] Comment on above: Order Comment: Micro scopics not performed on urines with negative chemical reactions unless requested on original order. Performed By: #### L [id number] #### [facility] (BEAKER) [address] [place] [address] Glucose (U) [Mass/Vol] mg/dL Abnormal Negative [facility] Comment on above: Order Comment: Micro scopics not performed on urines with negative chemical reactions unless requested on original order. Performed By: #### L [id number] #### [facility] (BEAKER) [address] [place] [address] HEMOGLOBIN PRESENCE IN URINE Negative Normal Negative [facility] Comment on above: Order Comment: Micro scopics not performed on urines with negative chemical reactions unless requested on original order. Performed By: #### L [id number] #### [facility] (BEAKER) [address] [place] [address] Ketones Ql (U) Negative Normal Negative [facility] Comment on above: Order Comment: Micro scopics not performed on urines with negative chemical reactions unless requested on original order. Performed By: #### L [id number] #### [facility] (BEAKER) [address] [place] [address] LEUKOCYTE ESTERASE PRESENCE IN URINE BY TEST STRIP Negative Normal Negative [facility] Comment on above: Order Comment: Micro scopics not performed on urines with negative chemical reactions unless requested on original order. Performed By: #### L [id number] #### [facility] ([facility]) [address] [place] [address] NITRITE PRESENCE IN URINE Negative Normal Negative [facility] Comment on above: Order Comment: Micro scopics not performed on urines with negative chemical reactions unless requested on original order. Performed By: #### L [id number] #### [facility] ([facility]) [address] [place] [address] pH (U) 6.0 [pH] Normal 5.0-8.0 [facility] Comment on above: Order Comment: Micro scopics not performed on urines with negative chemical reactions unless requested on original order. Performed By: #### L [id number] #### [facility] ([facility]) [address] [place] [address] Protein (U) [Mass/Vol] Negative Normal Negative [facility] Comment on above: Order Comment: Micro scopics not performed on urines with negative chemical reactions unless requested on original order. Performed By: #### L [id number] #### [facility] ([facility]) [address] [place] [address] Specific gravity (U) [Rel density] 1.013 Low 1.015-1.020 [facility] Comment on above: Order Comment: Micro scopics not performed on urines with negative chemical reactions unless requested on original order. Performed By: #### L [id number] #### [facility] ([facility]) [address] [place] [address] BILIRUBIN, TOTAL PRESENCE IN URINE Negative Normal Negative [facility] Comment on above: Order Comment: Micro scopics not performed on urines with negative chemical reactions unless requested on original order. Performed By: #### L [id number] #### [facility] ([facility]) [address] [place] [address] Clarity (U) Clear Normal Clear [facility] Comment on above: Order Comment: Micro scopics not performed on urines with negative chemical reactions unless requested on original order. Performed By: #### L [id number] #### [facility] ([facility]) [address] [place] [address] Color (U) Yellow Normal Yellow [facility] Comment on above: Order Comment: Micro scopics not performed on urines with negative chemical reactions unless requested on original order. Performed By: #### L [id number] #### [facility] ([facility]) [address] [place] [address] Glucose (U) [Mass/Vol] mg/dL Abnormal Negative [facility]: Order Comment: Micro scopics not performed on urines with negative chemical reactions unless requested on original order. Performed By: #### L [id number] #### [facility] ([facility]) [address] [place] [address] HEMOGLOBIN PRESENCE IN URINE Negative Normal Negative [facility] Comment on above: Order Comment: Micro scopics not performed on urines with negative chemical reactions unless requested on original order. Performed By: #### L [id number] #### [facility] ([facility]) [address] [place] [address] Ketones Ql (U) Negative Normal Negative [facility] Comment on above: Order Comment: Micro scopics not performed on urines with negative chemical reactions unless requested on original order. Performed By: #### L [id number] #### [facility] ([facility]) [address] [place] [address] LEUKOCYTE ESTERASE PRESENCE IN URINE BY TEST STRIP Negative Normal Negative [facility] Comment on above: Order Comment: Micro scopics not performed on urines with negative chemical reactions unless requested on original order. Performed By: #### L [id number] #### [facility] ([facility]) [address] [place] [address] NITRITE PRESENCE IN URINE Negative Normal Negative [facility] Comment on above: Order Comment: Micro scopics not performed on urines with negative chemical reactions unless requested on original order. Performed By: #### L [id number] #### [facility] ([facility]) [address] [place] [address] pH (U) 6.0 [pH] Normal 5.0-8.0 [facility] Comment on above: Order Comment: Micro scopics not performed on urines with negative chemical reactions unless requested on original order. Performed By: #### L [id number] #### [facility] ([facility]) [address] [place] [address] Protein (U) [Mass/Vol] Negative Normal Negative [facility] Comment on above: Order Comment: Micro scopics not performed on urines with negative chemical reactions unless requested on original order. Performed By: #### L [id number] #### [facility] ([facility]) [address] [place] [address] Specific gravity (U) [Rel density] 1.017 Normal 1.015-1.020 [facility] Comment on above: Order Comment: Micro scopics not performed on urines with negative chemical reactions unless requested on original order. Performed By: #### L [id number] #### [facility] ([facility] [address] [place] [address] BMPon 07-05-2023 Anion gap [Moles/Vol] 15 mmol/L Normal 6-[address] [facility] Comment on above: Performed By: #### 1 7820032, 5628520, 27378206, 32153364, 5062038, 44292786, 6755454, 0998460, 5036821, 2298086 ####[facility] [address] [place] [address] BUN/Creat Ratio 15 No Units Normal 10-20 [facility] Comment on above: Performed By: #### 1 1894925, 2195990, 61481743, 51020272, 5359246, 99696565, 3670415, 8383739, 4048759, 3736259 ####[facility] [address] [place] [address] Calcium [Mass/Vol] 10.1 mg/dL Normal 8.9-11.1 [facility] Comment on above: Performed By: #### 1 2839644, 3418935, 09389931, 70736339, 6260737, 94410860, 5513153, 6847519, 8556482, 8772376 ####[facility] [address] [place] [address] Chloride [Moles/Vol] 96 mmol/L Low 101-111 [facility] Comment on above: Performed By: #### 1 2178627, 1836145, 88554677, 29209306, 3947138, 49055504, 9521742, 8421646, 0205059, 3911723 ####[facility] [address] [place] [address] CO2 [Moles/Vol] 32 mmol/L High 21-31 [facility] Comment on above: Performed By: #### 1 8473289, 5358657, 05607513, 62499021, 8761261, 75834306, 1472957, 5419657, 9375512, 0436957 ####[facility] [address] [place] [address] Creatinine [Mass/Vol] 1.5 mg/dL High 0.5-1.[address] [facility] Comment on above: Performed By: #### 1 4265451, 8883324, 26044603, 35451615, 7288173, 80726559, 4157020, 4894634, 6026453, 6922855 ####[facility] [address] [place] [address] Glucose [Mass/Vol] 147 mg/dL Normal 55-199 [facility] Comment on above: Performed By: #### 1 0230334, 6836777, 29692330, 93811844, 9296002, 01782967, 1003888, 8627742, 0620094, 9214130 ####[facility] [address] [place] [address] Potassium [Moles/Vol] 5.1 mmol/L Normal 3.5-5.[address] [facility] Comment on above: Performed By: #### 1 0591037, 0895480, 74865908, 76663071, 1324194, 21729211, 5915436, 3281553, 6696301, 5414571 ####[facility] [address] [place] [address] Sodium [Moles/Vol] 138 mmol/L Normal 135-145 [facility] Comment on above: Performed By: #### 1 9380284, 7347846, 84029634, 06867963, 0309974, 57559161, 6867454, 3538506, 1530977, 4242735 ####[place] [place] [address] Urea nitrogen [Mass/Vol] 22 mg/dL High 5-21 [facility] Comment on above: Performed By: #### 1 7727748, 8538747, 20237984, 69998797, 7016838, 83605291, 0367729, 9644399, 9623077, 1486713 ####[address] [address] BNPon 07-05-2023 Natriuretic peptide B (Bld) [Mass/Vol] 508 pg/mL High 5-80 [facility] Comment on above: Performed By: #### 1 3443054, 1485502, 00055765, 81028058, 6085830, 35502538, 7656570, 3548274, 2115491, 1527375 ####[address] [address] CBC w/ Auto Diffon 4 Basophil Absolute 0.1 E9/L Normal 0.0-0.2 [facility] Comment on above: Performed By: #### 1 9296432, 2212459, 55899118, 12249340, 8554503, 84243143, 3507332, 5648134, 1175011, 8059819 ####[facility] [address] [place] [address] Basophils/100 WBC (Bld) 0.7 % Normal 0.0-2.0 [facility] Comment on above: Performed By: #### 1 0033708, 3869089, 26907578, 94961730, 2169842, 58789091, 2211955, 8485098, 1910940, 6996629 ####[facility] [address] [place] [address] Eos Absolute 0.4 E9/L Normal 0.0-0.5 [facility] Comment on above: Performed By: #### 1 3335068, 6967241, 93256793, 65074552, 1975865, 81419551, 6098580, 3063960, 6129154, 3992476 ####[address] [place] [address]357 Eosinophils/100 WBC (Bld) 3.7 % Normal 0.0-8.0 [facility] Comment on above: Performed By: #### 1 2105275, 9336037, 48084284, 13070469, 1071741, 68582403, 6770336, 3136982, 7128665, 8902400 ####[place] [address] Erythrocyte distribution width (RBC) [Ratio] 16.8 % High 10.9-14.2 [facility] Comment on above: Performed By: #### 1 6399781, 2802508, 17696566, 18186992, 9259405, 82147264, 9053529, 8101539, 2338226, 0319272 ####[address] [place] [place] [address]357 Hematocrit (Bld) [Volume fraction] 46.0 % Normal 34.0-46.0 [facility] Comment on above: Performed By: #### 1 2160815, 3938391, 04690692, 70350608, 8043077, 12744586, 2637823, 0246760, 4720923, 4836816 ####[address] [address] Hemoglobin (Bld) [Mass/Vol] 15.1 g/dL Normal 12.0-16.0 [facility] Comment on above: Performed By: #### 1 8068059, 9762834, 83881897, 89925477, 4039676, 34894212, 0616878, 1873352, 4187496, 1876291 ####[facility] [address] [place] [address] Lymph Absolute 3.6 E9/L Normal 1.0-4.0 [facility] Comment on above: Performed By: #### 1 8994919, 0680018, 32894715, 71073519, 4585458, 75698863, 9442031, 7549278, 7193488, 0079162 ####[address] [place] [address] Lymphocytes/100 WBC (Bld) 30.9 % Normal 14.0-50.0 [facility] Comment on above: Performed By: #### 1 5104433, 0796458, 00892073, 96866738, 6482270, 69627927, 1741268, 3274678, 6528047, 8295327 ####[facility] [address] [place] [address] MCH (RBC) [Entitic mass] 27.6 pg Normal 27.0-34.0 [facility] Comment on above: Performed By: #### 1 5733122, 5885245, 61714534, 79540195, 2766720, 78846027, 9760131, 8917507, 7756168, 1464661 ####[facility] [address] [place] [address] MCHC (RBC) [Mass/Vol] 32.8 g/dL Normal 31.4-36.[address] [facility] Comment on above: Performed By: #### 1 5900784, 9721192, 99032875, 82742086, 5595940, 18499121, 1892476, 5474925, 6764126, 3162944 ####[address] [place] [address] MCV (RBC) [Entitic vol] 84.3 fL Normal 80.0-100.0 [facility] Comment on above: Performed By: #### 1 9618751, 1325202, 22709206, 00280350, 4062437, 10227198, 0391180, 1157886, 1959488, 5597130 ####[facility] [address] [place] [address] [place] Absolute 0.9 E9/L Normal 0.2-1.0 [facility] Comment on above: Performed By: #### 1 2286584, 9345989, 00748107, 36221690, 3647140, 42992431, 6838424, 0075147, 3177483, 0606011 ####[facility] [address] [place] [address] Monocytes/100 WBC (Bld) 8.1 % Normal 4.0-14.0 [facility] Comment on above: Performed By: #### 1 0852434, 9106489, 12744310, 99214484, 7244818, 77519654, 1024230, 5861527, 3871588, 9474900 ####[facility] [address] [place] [address] Neutro Absolute 6.6 E9/L Normal 2.0-7.5 [facility] Comment on above: Performed By: #### 1 5616254, 6469655, 18013200, 88205493, 9336822, 21077637, 5173346, 1578078, 0397770, 3188644 ####[facility] [address] [place] [address] Neutro Auto 56.6 % Normal 36.0-75.0 [facility] Comment on above: Performed By: #### 1 2826137, 5794902, 10565195, 95426493, 0437402, 22653562, 4496821, 2401813, 3470852, 0946265 ####[facility] [address] [place] [address] Platelet 431.0 E9/L Normal 150.0-500.0 [facility] Comment on above: Performed By: #### 1 7629760, 4542918, 64693739, 78668847, 9655490, 13287102, 6535956, 1593250, 7133821, 3622973 ####[facility] [address] [place] [address] Platelet mean volume (Bld) [Entitic vol] 8.5 fL Normal 6.4-10.8 [facility] Comment on above: Performed By: #### 1 0401221, 5640260, 59939099, 01120249, 5198928, 24780484, 0761221, 8316909, 0734698, 9547972 ####[facility] [address] [place] [address] RBC 5.5 E12/L Normal 4.3-5.9 [facility] Comment on above: Performed By: #### 1 0883157, 9889224, 12327305, 48431751, 9304766, 78716509, 5222582, 0180231, 0828606, 3230688 ####[facility] [address] [place] [address] WBC 11.6 E9/L High 4.0-11.0 [facility] Comment on above: Performed By: #### 1 5298790, 5877928, 64994127, 16532464, 5016327, 58165844, 8882088, 0292642, 4390119, 4870966 ####[facility] [address] [place] [address] CHEMISTRYOrdered By: SYSTEM SYSTEM on 07-05-2023 Troponin 51.10 pg/mL Invalid Interpretation Code 10.10 - 27.10 pg/mL [facility] Comment on above: Result Comment: Crit ical Result I_TnIHS:51.1 Called to and read back by: DR. JUAN MAS at: 07/05/2023 21:51:38 by:[id number] Critical Result Verified by Previous Result Interpretive Data: T he 95% CI (Confidence Interval) PPV (Positive Predictive Value) for myocardial infarction in females is 38 pg/mL, in males 51 pg/mL. The results should be used in conjunction with clinical conditions of myocardial infarction. (Access High Sensitivity Troponin I Instructions For Use, [employer], December 2017) Troponin 51.70 pg/mL Invalid Interpretation Code 10.10 - 27.10 pg/mL [facility] Chem S Comment on above: Interpretive Data: T he 95% CI (Confidence Interval) PPV (Positive Predictive Value) for myocardial infarction in females is 38 pg/mL, in males 51 pg/mL. The results should be used in conjunction with clinical conditions of myocardial infarction. (Access High Sensitivity Troponin I Instructions For Use, [employer], December 2017) Result Comment: Crit ical Result [...] back by: JOHNNA PERKINS at: 07/05/2023 16:37:35 by:[id number] Interpretive Data: T he 95% CI (Confidence [...] 508 pg/mL High 5 - 80 pg/mL [facility] COAGULATIONOrdered By: Richar Kumar on 07-05-2023 aPTT Coag (PPP) [Time] 27.2 s Normal 25.1 - 36.5 second(s) [facility] Auto Coag Comment on above: Interpretive Data: [...] the same coagulation reagent and instrumentation as [facility]. Currently there are no coagulation studies available worldwide for children to 14 days, and no normal ranges. Heparin therapeutic range (represented by Anti-Factor Xa activity of 0.2 - 0.4 U/mL) corresponds to PTT of 56.6 - 109.0 sec. INR Coag (PPP) [Relative time] 1.01 {INR} Invalid Interpretation Code [facility] Auto Coag Comment on above: Interpretive Data: I NR results are specifically intended to assess patients stabilized on long-term Anticoagulation therapy suggested INR s Less Intensive Anticoagulation 2.0 3.0 Conventional Range 3.0 4.5 PT Coag (PPP) [Time] 11.2 s Normal 9.4 - 1 2.5 second(s) [facility] Auto Coag Comment on above: Interpretive Data: [...] the same coagulation reagent and instrumentation as [facility]. Currently there are no coagulation studies available worldwide for children to 14 days, and no normal ranges. Consent for Treatmenton 06-15 Consent for Treatment [id number]#1 .00TIFF Normal [facility] Digoxinon 07-05-2023 Digoxin Lvl <0.2 Low 0.5-1.9 [facility] Comment on above: Performed By: #### 1 9673140, 3965798, 24840268, 76969078, 1872876, 00561193, 1606122, 7050371, 1925467, 7489095 ####[facility] [address] [place] [address] ED Note-Physicianon 07-05-19 ED Note-Physician Basic Information [...] patient states she was just released from [facility] 36 hours ago. She states she was [...] acute int (more content not included)... Normal [facility] Comment on above: Result Comment: Elec [...] Normal 80.0 - 100.0 fL Remisol Heme [place] Absolute 0.9 E9/L Normal 0.2 - 1.0 [...] 07-05-2023 Albumin [Mass/Vol] 4.3 g/dL Normal 3.3-5.0 [facility] Comment on above: Performed By: #### 1 8207880, 7220664, 53912178, 27104331, 7483336, 69133131, 7983760, 1825969, 7379929, 1731153 ####[address] [place] [address] Albumin/Globulin [Mass ratio] 1.4 {ratio} Normal 1.1-2.2 [facility] Comment on above: Performed By: #### 1 8783350, 6345291, 28267202, 70296898, 9392149, 38736054, 9357910, 9083128, 4853507, 2544345 ####[address] [place] [address] Alk Phos 77 Int._Unit/L Normal 21-98 [facility] Comment on above: Performed By: #### 1 3978907, 0568481, 60678855, 20823893, 5302686, 01040127, 5183950, 7638201, 7777117, 3889669 ####[address] [place] [address] ALT 20 Int._Unit/L Normal 6-46 [facility] Comment on above: Performed By: #### 1 7549384, 2302282, 01970362, 20554241, 6116023, 24875215, 2622134, 7379857, 0854624, 0086596 ####[address] [address] AST 23 Int._Unit/L Normal 5-43 [facility] Comment on above: Performed By: #### 1 9356733, 2693877, 78181721, 30577147, 8161508, 66746936, 8989955, 6067089, 0553207, 2410378 ####[address] [place] [address] Bili Direct 0.1 mg/dL Normal 0.0-0.4 [facility] Comment on above: Performed By: #### 1 6685398, 0303220, 11016699, 93667074, 6651740, 58654273, 2619038, 3872557, 0327716, 7898090 ####[address] [place] [address] Bili Indirect 0.5 mg/dL Normal 0.1-0.9 [facility] Comment on above: Performed By: #### 1 9146776, 4988832, 21356589, 95317055, 3802473, 62343832, 4170849, 3119863, 7368444, 9679398 ####[facility] [address] [place] [address] Bili Total 0.6 mg/dL Normal 0.0-1.1 [facility] Comment on above: Performed By: #### 1 0894557, 3957910, 93110727, 16255974, 2602861, 47813793, 9373380, 7222832, 8909021, 3884851 ####[address] [place] [address] Globulin (S) [Mass/Vol] 3.0 g/dL Normal 1.4-4.0 [facility] Comment on above: Performed By: #### 1 8239649, 5204083, 48298662, 13554790, 8141684, 22853086, 2917613, 3403051, 0383760, 3145284 ####[facility] [address] [place] [address] Protein [Mass/Vol] 7.3 g/dL Normal 6.0-7.8 [facility] Comment on above: Performed By: #### 1 6750053, 8632715, 23784829, 00326890, 5839244, 65574592, 8841333, 5815039, 6693284, 7000635 ####[facility] [address] [place] [address] Lipase Levelon 07-05-2023 Lipase Lvl 22 unit/L Normal 13-58 [facility] Comment on above: Performed By: #### 1 2131585, 0380198, 12893910, 22989632, 6330796, 34597606, 7208322, 5335102, 3284399, 1398062 ####[address] [place] [address] Magnesiumon 07-05-2023 Magnesium [Mass/Vol] 2.3 mg/dL Normal 1.3-2.4 [facility] Comment on above: Performed By: #### 1 3913206, 8864332, 29470012, 67679991, 1301633, 77614576, 3218202, 5826639, 6798101, 2388583 ####[facility] [address] [place] [address] Monitor Recordon 07-05-2023 Monitor Record [id number]# 1.00TIFF Normal [facility] Monitor Record [id number]# 1.00TIFF Normal [facility] Monitor Record [id number]# 1.00TIFF Normal [facility] PT & PTTon 07-05-2023 aPTT Coag (PPP) [Time] 27.2 second(s) Normal 25.1-36.5 [facility] Comment on above: Result Comment: Para [...] the same coagulation reagent and instrumentation as [facility]. Currently there are no coagulation studies available worldwide for children to 14 days, and no normal ranges. Heparin therapeutic range (represented by Anti-Factor Xa activity of 0.2 - 0.4 U/mL) corresponds to PTT of 56.6 - 109.0 sec. Performed By: #### 1 9410783, 8217651, 79755397, 19981429, 1931636, 07785633, 1569639, 5978552, 2232905, 2830309 ####[facility] [address] [place] [address] INR Coag (PPP) [Relative time] 1.01 {INR} Invalid Interpretation Code [facility] Comment on above: Result Comment: INR results are specifically intended to assess patients stabilized on long-term Anticoagulation therapy suggested INR?s ?Less Intensive Anticoagulation? 2.0 ? 3.0 Conventional Range 3.0 ? 4.5 Performed By: #### 1 2645727, 5090923, 85962184, 95437664, 7700385, 49048050, 3700772, 9865375, 9421699, 3217969 ####[facility] [address] [place] [address] PT Coag (PPP) [Time] 11.2 second(s) Normal 9.4-12.5 [facility] Comment on above: Result Comment: 15 [...] the same coagulation reagent and instrumentation as [facility]. Currently there are no coagulation studies available worldwide for children to 14 days, and no normal ranges. Performed By: #### 1 1856725, 2314920, 03254737, 68891948, 5094322, 48879897, 3443786, 0445590, 5302835, 7129786 ####[facility] [address] [place] [address] Pre-Arrival Noteon 4 Pre-Arrival Note Pre-Arrival Summary Name: , [place] EMS Current Date: 07/05/2023 15:02:00 EST Gender: Female Date of : Age: 63 Pre-Arrival Type: EMS ETA: 07/05/2023 15:21:00 EST Primary Care Physician: Presenting Problem: HR 40s, CP, SOB, dizziness, abd. pain, nausea Pre-Arrival User: Oxana Pace RN Referring Source: Location: [place] Completion Date/Time: 07/05/2023 14:51:00 [facility] Emergency Department Pre-Hospital Report Form Vital Signs: Pre-Hospital Report: Treatment in Route: Response to Treatment: Misc. Issues: Normal [facility] Troponin 0 Hr.on 07-05-2023 Troponin 49.20 pg/mL Abnormal 10.10-27.10 [facility] Comment on above: Result Comment: Crit ical Result Verified by Repeat Analysis Critical Result I_TnIHS:49.2 Called to and read back by: JOHNNA PERKINS at: 07/05/2023 16:37:35 by:[id number] The 95% CI (Confidence Interval) PPV (Positive Predictive Value) for myocardial infarction in females is 38 pg/mL, in males 51 pg/mL. The results should be used in conjunction with clinical conditions of myocardial infarction. (Access High Sensitivity Troponin I Instructions For Use, [employer], December 2017) Performed By: #### 1 7867243, 6228284, 18657938, 35661853, 5889659, 69456835, 4226060, 3092608, 2802869, 3315191 ####[facility] [address] [place] [address] Troponin 3 Hr.on 07-05-2023 Troponin 51.70 pg/mL Abnormal 10.10-27.10 [facility] Comment on above: Result Comment: The 95% CI (Confidence Interval) PPV (Positive Predictive Value) for myocardial infarction in females is 38 pg/mL, in males 51 pg/mL. The results should be used in conjunction with clinical conditions of myocardial infarction. (Access High Sensitivity Troponin I Instructions For Use, [employer], December 2017) Critical Result Verified by Previous Result Results Called To Johnna Perkins (ER) By And Read Back For Confirmation On 07/05/2023 19:18:03 EST. Performed By: #### 1 [id number] ####[facility] [address] [place] [address] Troponin 6 Hr.on 07-05-2023 Troponin 51.10 pg/mL Abnormal 10.10-27.10 [facility] Comment on above: Result Comment: Crit ical Result I_TnIHS:51.1 Called to and read back by: DR. JUAN MAS at: 07/05/2023 21:51:38 by:[id number] Critical Result Verified by Previous Result The 95% CI (Confidence Interval) PPV (Positive Predictive Value) for myocardial infarction in females is 38 pg/mL, in males 51 pg/mL. The results should be used in conjunction with clinical conditions of myocardial infarction. ([employer] High Sensitivity Troponin I Instructions For Use, [employer], December 2017) Performed By: #### 1 [id number] ####[facility] [address] [place] [address] XR Chest Single Viewon 07-05 XR Chest [...] mGy = na DAP = na Normal [facility] eGFRon 07-05-2023 eGFR 39 mL/min/1.73 m2 Low >=59 [facility] Comment on above: Order Comment: Order added by Discern Expert. Performed By: #### 1 8827972, 0145386, 79653604, 39994880, 8512676, 69593461, 6830093, 4616821, 7596385, 0558764 ####[facility] [address] [place] [address] 36on 07-03-2023 36 Unable to reach pt . Phone not in service [facility] 36 Pts phone number not in service. Spoke to pts friend Arvind and requested he have pt call us, he agrees. [facility] Documentationon 07-03-2023 Documentation [id number] Vivian Vann 1960 F Date Provider Department [place] 07/03/2023 [facility] No family history on file Reason for Visit and Comments: HF inpatient satisfaction suvrey sent. [Other] [facility] 30on 07-02-2023 30 The patient is [...] and behaviors that affect risk of falls [place] fall precautions as indicated by assessment Educate [...] and prevent overall improvement and discharge Normal [facility] 30 The patient is Moderately Stable - [...] and behaviors that affect risk of falls [place] fall precautions as indicated by assessment Educate [...] and prevent overall improvement and discharge Normal [facility] BASIC METABOLIC PANELon - Anion gap [Moles/Vol] 11 mmol/L Normal 7-20 [facility] Comment on above: Performed By: #### L [id number] #### [facility] ([facility]) [address] [place] [address] Calcium [Mass/Vol] 9.0 mg/dL Normal 8.6-10.3 [facility] Comment on above: Performed By: #### L [id number] #### [facility] ([facility]) [address] [place] [address] Chloride [Moles/Vol] 91 mmol/L Low 98-107 [facility] Comment on above: Performed By: #### L [id number] #### [facility] (BEAKER) [address] [place] [address] CO2 [Moles/Vol] 37 mmol/L High 21-31 [facility] Comment on above: Performed By: #### L [id number] #### [facility] ([facility]AKER) [address] [place] [address] Creatinine [Mass/Vol] 0.89 mg/dL Normal 0.60-1.20 [facility] Comment on above: Performed By: #### L [id number] #### [facility] (BEAKER) [address] [place] [address] GLOMERULAR FILTRATION RATE ML/MIN/1.73 SQ M.PREDICTED 73.3 mL/min/1.73m*2 Normal >60.0 [facility] Comment on above: Result Comment: The [facility]???s estimated glomerular filtration rate (eGFR) will no [...] individuals. Performed By: #### L [id number] #### [facility] ([facility]) [address] [place] [address] Glucose [Mass/Vol] 123 mg/dL High 70-100 [facility] Comment on above: Performed By: #### L [id number] #### [facility] ([facility]) [address] [place] [address] Potassium [Moles/Vol] 3.7 mmol/L Normal 3.5-5.1 [facility] Comment on above: Performed By: #### L [id number] #### [facility] ([facility]) [address] [place] [address] Sodium [Moles/Vol] 135 mmol/L Low 136-145 [facility] Comment on above: Performed By: #### L [id number] #### [facility] ([facility]) [address] [place] [address] Urea nitrogen [Mass/Vol] 29 mg/dL High 7-25 [facility] Comment on above: Performed By: #### L [id number] #### [facility] ([facility]) [address] [place] [address] UREA NITROGEN/CREATININE (MASS RATIO) IN SER/PLAS 32.6 Normal [facility] Comment on above: Performed By: #### L [id number] #### [facility] ([facility] [address] [place] [address] CBCon 07-02-2023 Erythrocyte distribution width (RBC) [Ratio] 15.8 % High 11.5-15.0 [facility] Comment on above: Performed By: #### L [id number] ####[facility] ([facility])[address] [place] [address] ERYTHROCYTE MEAN CORPUSCULAR HEMOGLOBIN CONCENTRATION (G/DL) BY AUTOMATED 31.8 g/dL Low 32.0-35.0 [facility] Comment on above: Performed By: #### L [id number] ####[facility] ([facility])[address] [place] [address] Hematocrit (Bld) [Volume fraction] 44.0 % Normal 36.0-48.0 [facility] Comment on above: Performed By: #### L [id number] ####[facility] ([facility])[address] [place] [address] Hemoglobin (Bld) [Mass/Vol] 14.0 g/dL Normal 12.0-15.0 [facility] Comment on above: Performed By: #### L [id number] ####[facility] ([facility])[address] [place] [address] MCH (RBC) [Entitic mass] 27.9 pg Normal 27.0-33.0 [facility] Comment on above: Performed By: #### L [id number] ####[facility] ([facility])[address] [place] [address] MCV (RBC) [Entitic vol] 87.8 fL Normal 82.0-98.0 [facility] Comment on above: Performed By: #### L [id number] ####[facility] ([facility])[address] [place] [address] PLATELETS (10*3/UL) IN BLOOD AUTOMATED COUNT 285 10*3/uL Normal 150-400 [facility] Comment on above: Performed By: #### L [id number] ####[facility] (BEAKER)[address] [place] [address] RBC (Bld) [#/Vol] 5.01 10*6/uL High 3.80-5.00 [facility] Comment on above: Performed By: #### L [id number] ####[facility] ([facility])[address] [place] [address] WBC (Bld) [#/Vol] 8.89 10*3/uL Normal 4.00-10.60 [facility] Comment on above: Performed By: #### L [id number] ####[facility] ([facility])[address] [place] [address] DSon 07-02-2023 DS Admit Date 06/29/2023 Discharge Date 07/02/2023 Discharge Diagnosis NSTEMI Acute on chronic HFpEF NYHA class 2 CAD DMII noninsulin dependent Chronic pain Anxiety GERD Tobacco abuse Discharge Disposition Home-Health Care [facility] Discharge Medications Your medication list START [...] Medications These medications were sent to [facility] [place], [place] - [address] [facility] [place] [address] [address] [facility] [place] [address], [facility] [address] furosemide 40 mg tablet spironolactone 25 mg tablet Activity Normal activity as tolerated Diet Continue on the same type of diet and foods as you were eating before your admission. Drink plenty of water. Allergies Hay fever and allergy relief and House dust Hospital Course History of Present Illness Vivian Vann is an 63 y.o. female who came from [facility] as direct asmission for NSTEMI. Patient presented 06/28/23 to [place] ED for c/o chest pain and lower back pain. Patient troponin level found to be 557 and EKG showed new ischemia and inverted T-waves, NSTEMI. She was given nitroglycerin and started on heparin drip. Patient is 1 year s/p stent placement at [facility] on plavix and aspirin. Dr. Yoo with cardiology agreed to patient transfer here to [facility] with hospital medicine admitting and cardiology consult [...] Low back pending. Laboratory workup here at [facility] shows CBC unremarkable w/ exception of NCHC [...] General: Abdo (more content not included)... Normal [facility] POCT GLUCOSE METER UNSOLICIT ED RESULTSon 07-02-2023 Glucose [Mass/Vol] 117 mg/dL High 70-105 [facility] Comment on above: Order Comment: Waive d Testing in the ED is performed under the ED CLIA certificate #[id number]. Result Comment: [email or web address] Performed By: #### L [id number] #### [facility] ([facility]AKER) [address] [place] [address] Glucose [Mass/Vol] 110 mg/dL High 70-105 [facility] Comment on above: Order Comment: Waive d Testing in the ED is performed under the ED CLIA certificate #[id number]. Result Comment: [email or web address] Performed By: #### L [id number] ####[facility] (BEAKER)[address] [place] [address] 30on 07-01-2023 30 The patient is Moderately [...] and behaviors that affect risk of falls [place] fall precautions as indicated by assessment Educate [...] and prevent overall improvement and discharge Normal [facility] BASIC METABOLIC PANELon - Anion gap [Moles/Vol] 10 mmol/L Normal 7-20 [facility] Comment on above: Performed By: #### L [id number] #### [facility] (BEAKER) [address] [place] [address] Calcium [Mass/Vol] 8.3 mg/dL Low 8.6-10.3 [facility] Comment on above: Performed By: #### L [id number] #### [facility] ([facility]) [address] [place] [address] Chloride [Moles/Vol] 98 mmol/L Normal 98-107 [facility] Comment on above: Performed By: #### L [id number] #### [facility] ([facility]) [address] [place] [address] CO2 [Moles/Vol] 35 mmol/L High 21-31 [facility] Comment on above: Performed By: #### L [id number] #### [facility] ([facility]) [address] [place] [address] Creatinine [Mass/Vol] 1.08 mg/dL Normal 0.60-1.20 [facility] Comment on above: Performed By: #### L [id number] #### [facility] ([facility]) [address] [place] [address] GLOMERULAR FILTRATION RATE ML/MIN/1.73 SQ M.PREDICTED 58.1 mL/min/1.73m*2 Low >60.0 [facility] Comment on above: Result Comment: The [facility]???s estimated glomerular filtration rate (eGFR) will no [...] individuals. Performed By: #### L [id number] #### [facility] ([facility]) [address] [place] [address] Glucose [Mass/Vol] 116 mg/dL High 70-100 [facility] Comment on above: Performed By: #### L [id number] #### [facility] ([facility]) [address] [place] [address] Potassium [Moles/Vol] 3.7 mmol/L Normal 3.5-5.1 [facility] Comment on above: Performed By: #### L [id number] #### [facility] ([facility]) [address] [place] [address] Sodium [Moles/Vol] 139 mmol/L Normal 136-145 [facility] Comment on above: Performed By: #### L [id number] #### [facility] ([facility]) [address] [place] [address] Urea nitrogen [Mass/Vol] 27 mg/dL High 7-25 [facility] Comment on above: Performed By: #### L [id number] #### [facility] ([facility]) [address] [place] [address] UREA NITROGEN/CREATININE (MASS RATIO) IN SER/PLAS 25.0 Normal [facility] Comment on above: Performed By: #### L [id number] #### [facility] ([facility]) [address] [place] [address] POCT GLUCOSE METER UNSOLICIT ED RESULTSon 07-01-2023 Glucose [Mass/Vol] 132 mg/dL High 70-105 [facility] Comment on above: Order Comment: Waive d Testing in the ED is performed under the ED CLIA certificate #[id number]. Result Comment: [email or web address] Performed By: #### L [id number] ####[facility] ([facility])[address] [place] [address] Glucose [Mass/Vol] 106 mg/dL High 70-105 [facility] Comment on above: Order Comment: Waive d Testing in the ED is performed under the ED CLIA certificate #[id number]. Result Comment: [email or web address] Performed By: #### L [id number] ####[facility] ([facility] [place] [address] Glucose [Mass/Vol] 121 mg/dL High 70-105 [facility] Comment on above: Order Comment: Waive d Testing in the ED is performed under the ED CLIA certificate #[id number]. Result Comment: [email or web address] Performed By: #### L [id number] ####[facility] ([facility])[address] [place] [address] Glucose [Mass/Vol] 105 mg/dL Normal 70-105 [facility] Comment on above: Order Comment: Waive d Testing in the ED is performed under the ED CLIA certificate #[id number]. Result Comment: [email or web address] Performed By: #### L [id number] #### [facility] ([facility]) [address] [place] [address] 30on 06-30-2023 30 The patient is Moderately [...] and maintained or improved Outcome: Progressing Normal [facility] ANTI-XA (HEPARIN LEVEL)on HEPARIN UNFRACTIONATED (U/ML) IN PPP BY CHROMOGENIC METHOD <0.10 Invalid Interpretation Code 0.3-0.7 [facility] Comment on above: Order Comment: Check anti-Xa level every 6 hours while on heparin infusion, or per protocol. Result Comment: [place] roxaban and Apixaban will interfere with the anti Xa assay used to monitor UFH and LMWH. Performed By: #### L [id number] #### [facility] ([facility]) [address] [place] [address] CBCon 06-30-2023 Erythrocyte distribution width (RBC) [Ratio] 15.3 % High 11.5-15.0 [facility] Comment on above: Performed By: #### L [id number] ####[facility] (BEAKER)[address] [place] [address] ERYTHROCYTE MEAN CORPUSCULAR HEMOGLOBIN CONCENTRATION (G/DL) BY AUTOMATED 32.2 g/dL Normal 32.0-35.0 [facility] Comment on above: Performed By: #### L [id number] ####[facility] ([facility] [place] [address] Hematocrit (Bld) [Volume fraction] 35.7 % Low 36.0-48.0 [facility] Comment on above: Performed By: #### L [id number] ####[facility] ([facility] [place] [address] Hemoglobin (Bld) [Mass/Vol] 11.5 g/dL Low 12.0-15.0 [facility] Comment on above: Performed By: #### L [id number] ####[facility] (BEAKER)[address] [place] [address] MCH (RBC) [Entitic mass] 28.1 pg Normal 27.0-33.0 [facility] Comment on above: Performed By: #### L [id number] ####[facility] (BEAKER)[address] [place] [address] MCV (RBC) [Entitic vol] 87.3 fL Normal 82.0-98.0 [facility] Comment on above: Performed By: #### L [id number] ####[facility] (BEAKER)[address] [place] [address] PLATELETS (10*3/UL) IN BLOOD AUTOMATED COUNT 219 10*3/uL Normal 150-400 [facility] Comment on above: Performed By: #### L [id number] ####[facility] (BEAKER)[address] [place] [address] RBC (Bld) [#/Vol] 4.09 10*6/uL Normal 3.80-5.00 [facility] Comment on above: Performed By: #### L [id number] ####[facility] (BEAKER)[address] [place] [address] WBC (Bld) [#/Vol] 10.22 10*3/uL Normal 4.00-10.60 [facility] Comment on above: Performed By: #### L [id number] ####[facility] (BEAKER)[address] [place] [address] CONSULTon 06-30-2023 CONSULT Clinical Nutrition Assessment Name: [...] with questions and contact the dietitian via [employer] chat 8A-4P Sunday-Sunday. Or call the dietitian's office at extension [phone]. For weekends/holidays, the dietitian's can be reached by paging [phone] from 9A-3P. Unable to be reached via [employer] chat on Sunday & .) Normal [facility] HEMOGLOBIN A1Con 06-30-2023 Glucose [Mass/Vol] 143 mg/dL Normal [facility] Comment on above: Performed By: #### L [id number] ####[facility] (BEAKER)[address] [place] [address] HbA1c (Bld) [Mass fraction] 6.6 % High 4.0-6.0 [facility] Comment on above: Performed By: #### L [id number] ####[facility] (BEAKER)[address] [place] [address] LACTIC ACID WITH 4 HOUR REFL EXon 06-30-2023 LACTATE (MMOL/L) IN SER/PLAS 1.9 mmol/L Normal 0.5-2.2 [facility] Comment on above: Performed By: #### L [id number] #### [facility] (BEAKER) [address] [place] [address] POCT GLUCOSE METER UNSOLICIT ED RESULTSon 06-30-2023 Glucose [Mass/Vol] 156 mg/dL High 70-105 [facility] Comment on above: Order Comment: Waive d Testing in the ED is performed under the ED CLIA certificate #[id number]. Result Comment: [email or web address] [email or web address] Performed By: #### L [id number] ####[facility] (BEAKER)[address] [place] [address] Glucose [Mass/Vol] 149 mg/dL High 70-105 [facility] Comment on above: Order Comment: Waive d Testing in the ED is performed under the ED CLIA certificate #[id number]. Result Comment: [email or web address] Performed By: #### L [id number] #### [facility] ([facility]) [address] [place] [address] Glucose [Mass/Vol] 181 mg/dL High 70-105 [facility] Comment on above: Order Comment: Waive d Testing in the ED is performed under the ED CLIA certificate #[id number]. Result Comment: [email or web address] Performed By: #### L [id number] #### [facility] ([facility] [address] [place] [address] 30on 06-29-2023 30 The patient is Moderately [...] and maintained or improved Outcome: Progressing Normal [facility] 30 The patient is Moderately Stable - Low risk of patient condition declining or worsening The patient's goals for the shift include no chest pain The clinical goals for the shift include vss Over the shift, the patient did not make progress toward the following goals. Barriers to progression include . Recommendations to address these barriers include . Normal [facility] APTTon 06-29-2023 ACTIVATED PARTIAL THROMBOPLASTIN TIME IN PPP BY COAGULATION ASSAY 67.3 Seconds High 25.0-35.0 [facility] Comment on above: Result Comment: Clin ical significance of the APTT is questionable in the presence of heparin. Performed By: #### L [id number] #### [facility] ([facility]) [address] [place] [address] B-TYPE NATRIURETIC PEPTIDEon 06-29-2023 Natriuretic peptide B (Bld) [Mass/Vol] 1683 pg/mL High 0-100 [facility] Comment on above: Performed By: #### L [id number] #### [facility] ([facility]) [address] [place] [address] BASIC METABOLIC PANELon 06-14 Anion gap [Moles/Vol] 14 mmol/L Normal 7-20 [facility] Comment on above: Performed By: #### L [id number] #### [facility] ([facility]) [address] [place] [address] Calcium [Mass/Vol] 8.2 mg/dL Low 8.6-10.3 [facility] Comment on above: Performed By: #### L [id number] #### [facility] ([facility]) [address] [place] [address] Chloride [Moles/Vol] 102 mmol/L Normal 98-107 [facility] Comment on above: Performed By: #### L [id number] #### [facility] ([facility]) [address] [place] [address] CO2 [Moles/Vol] 25 mmol/L Normal 21-31 [facility] Comment on above: Performed By: #### L [id number] #### [facility] ([facility]) [address] [place] [address] Creatinine [Mass/Vol] 1.04 mg/dL Normal 0.60-1.20 [facility] Comment on above: Performed By: #### L [id number] #### [facility] ([facility]) [address] [place] [address] GLOMERULAR FILTRATION RATE ML/MIN/1.73 SQ M.PREDICTED 60.8 mL/min/1.73m*2 Normal >60.0 [facility] Comment on above: Result Comment: The [facility]???s estimated glomerular filtration rate (eGFR) will no [...] individuals. Performed By: #### L [id number] #### [facility] ([facility]) [address] [place] [address] Glucose [Mass/Vol] 268 mg/dL High 70-100 [facility] Comment on above: Performed By: #### L [id number] #### [facility] ([facility]) [address] [place] [address] Potassium [Moles/Vol] 4.1 mmol/L Normal 3.5-5.1 [facility] Comment on above: Performed By: #### L [id number] #### [facility] ([facility]) [address] [place] [address] Sodium [Moles/Vol] 137 mmol/L Normal 136-145 [facility] Comment on above: Performed By: #### L [id number] #### [facility] ([facility]) [address] [place] [address] Urea nitrogen [Mass/Vol] 14 mg/dL Normal 7-25 [facility] Comment on above: Performed By: #### L [id number] #### [facility] ([facility]) [address] [place] [address] UREA NITROGEN/CREATININE (MASS RATIO) IN SER/PLAS 13.5 Normal [facility] Comment on above: Performed By: #### L [id number] #### [facility] ([facility]) [address] [place] [address] CBCon 06-29-2023 Erythrocyte distribution width (RBC) [Ratio] 15.3 % High 11.5-15.0 [facility] Comment on above: Performed By: #### L [id number] #### [facility] ([facility]) [address] [place] [address] ERYTHROCYTE MEAN CORPUSCULAR HEMOGLOBIN CONCENTRATION (G/DL) BY AUTOMATED 31.8 g/dL Low 32.0-35.0 [facility] Comment on above: Performed By: #### L [id number] #### [facility] ([facility]) [address] [place] [address] Hematocrit (Bld) [Volume fraction] 39.3 % Normal 36.0-48.0 [facility] Comment on above: Performed By: #### L [id number] #### [facility] ([facility]) [address] [place] [address] Hemoglobin (Bld) [Mass/Vol] 12.5 g/dL Normal 12.0-15.0 [facility] Comment on above: Performed By: #### L [id number] #### [facility] ([facility]) [address] [place] [address] MCH (RBC) [Entitic mass] 28.4 pg Normal 27.0-33.0 [facility] Comment on above: Performed By: #### L [id number] #### [facility] ([facility]) [address] [place] [address] MCV (RBC) [Entitic vol] 89.3 fL Normal 82.0-98.0 [facility] Comment on above: Performed By: #### L [id number] #### [facility] ([facility]) [address] [place] [address] PLATELETS (10*3/UL) IN BLOOD AUTOMATED COUNT 218 10*3/uL Normal 150-400 [facility] Comment on above: Performed By: #### L [id number] #### [facility] ([facility]) [address] [place] [address] RBC (Bld) [#/Vol] 4.40 10*6/uL Normal 3.80-5.00 [facility] Comment on above: Performed By: #### L [id number] #### [facility] [address] [place] [address] WBC (Bld) [#/Vol] 9.91 10*3/uL Normal 4.00-10.60 [facility] Comment on above: Performed By: #### L [id number] #### [facility] ([facility]AKER) [address] [place] [address] COMPREHENSIVE METABOLIC PANE Pollo 06-29-2023 Albumin [Mass/Vol] 3.8 g/dL Normal 3.5-5.7 [facility] Comment on above: Performed By: #### L [id number] ####[facility] ([facility]AKER)[address] [place] [address] ALP [Catalytic activity/Vol] 77 U/L Normal 34-104 [facility] Comment on above: Performed By: #### L [id number] ####[facility] ([facility]AKER)[address] [place] [address] ALT [Catalytic activity/Vol] 23 U/L Normal 7-52 [facility] Comment on above: Performed By: #### L [id number] ####[facility] ([facility]AKER)[address] [place] [address] Anion gap [Moles/Vol] 10 mmol/L Normal 7-20 [facility] Comment on above: Performed By: #### L [id number] ####[facility] (BEAKER)[address] [place] [address] AST [Catalytic activity/Vol] 23 U/L Normal 13-39 [facility] Comment on above: Performed By: #### L [id number] ####[facility] (BEAKER)[address] [place] [address] Bilirubin [Mass/Vol] 0.4 mg/dL Normal 0.3-1.0 [facility] Comment on above: Performed By: #### L [id number] ####[facility] (BEAKER)[address] [place] [address] Calcium [Mass/Vol] 8.6 mg/dL Normal 8.6-10.3 [facility] Comment on above: Performed By: #### L [id number] ####[facility] ([facility])[address] [place] [address] Chloride [Moles/Vol] 107 mmol/L Normal 98-107 [facility] Comment on above: Performed By: #### L [id number] ####[facility] ([facility]ER)[address] [place] [address] CO2 [Moles/Vol] 27 mmol/L Normal 21-31 [facility] Health Comment on above: Performed By: #### L [id number] ####[facility] ([facility] [place] [address] Creatinine [Mass/Vol] 1.01 mg/dL Normal 0.60-1.20 [facility] Comment on above: Performed By: #### L [id number] ####[facility] ([facility])[address] [place] [address] GLOMERULAR FILTRATION RATE ML/MIN/1.73 SQ M.PREDICTED 62.9 mL/min/1.73m*2 Normal >60.0 [facility] Comment on above: Result Comment: The [facility]???s estimated glomerular filtration rate (eGFR) will no [...] of individuals. Performed By: #### L [id number] ####[facility] ([facility])[address] [place] [address] Glucose [Mass/Vol] 148 mg/dL High 70-100 [facility] Comment on above: Performed By: #### L [id number] ####[facility] ([facility])[address] [place] [address] Potassium [Moles/Vol] 4.2 mmol/L Normal 3.5-5.1 [facility] Comment on above: Performed By: #### L [id number] ####[facility] ([facility])[address] [place] [address] Protein [Mass/Vol] 6.3 g/dL Normal 6.0-8.3 [facility] Comment on above: Performed By: #### L [id number] ####[facility] ([facility])[address] [place] [address] Sodium [Moles/Vol] 140 mmol/L Normal 136-145 [facility] Comment on above: Performed By: #### L [id number] ####[facility] ([facility])[address] [place] [address] Urea nitrogen [Mass/Vol] 10 mg/dL Normal 7-25 [facility] Comment on above: Performed By: #### L [id number] ####[facility] ([facility])[address] [place] [address] UREA NITROGEN/CREATININE (MASS RATIO) IN SER/PLAS 9.9 Normal [facility] Comment on above: Performed By: #### L [id number] ####[facility] ([facility])[address] [place] [address] CONSULTon 06-29-2023 CONSULT - Attestation signed by [...] tobacco use comes as a transfer from [facility] due to suspected NSTEMI. Patient was [...] Her troponins were elevated at 557 at [facility] and recheck here shows 0.07. Patient [...] Value Ventricular Rate 61 Atrial Rate 61 LA Interval 150 (more content not included)... Normal [facility] HPon 06-29-2023 HP Interval Pre-Procedural H&P Reason for Consult: NSTEMI HPI: Vivian Vann is a 63 y.o. female with PMH of CAD s/p PCI to LAD (October 2021), HTN, HLD, COPD, tobacco use comes as a transfer from [facility] due to suspected NSTEMI. Patient was [...] Her troponins were elevated at 557 at [facility] and recheck here shows 0.07. Patient [...] Value Ventricular Rate 61 Atrial Rate 61 LA Interval 150 QRS DURATION 88 QT Interval 476 QTC CALCULATION(BAZETT) 479 P Squires 68 R-Squires 25 T Wave Squires 128 Impression Normal sinus rhythm Right atrial [...] deformity. End (more content not included)... Normal [facility] LACTIC ACID WITH 4 HOUR REFL EXon 06-29-2023 LACTATE (MMOL/L) IN SER/PLAS 3.6 mmol/L Critically high 0.5-2.2 [facility] Comment on above: Result Comment: M-LA EVIOUS CRITICAL RESULT Previous result verified on 06/29/2023 1809 on specimen/case [id number] called with component Lactate blood venous for procedure Lactic acid with 4 hour reflex with value 2.7 mmol/L. Performed By: #### L [id number] #### [facility] ([facility]) [address] [place] [address] LACTATE (MMOL/L) IN SER/PLAS 2.7 mmol/L Critically high 0.5-2.2 [facility] Comment on above: Performed By: #### L [id number] #### [facility] ([facility]) [address] [place] [address] LACTATE (MMOL/L) IN SER/PLAS 2.5 mmol/L High 0.5-2.2 [facility] Comment on above: Performed By: #### L [id number] ####[facility] ([facility])[address] [address] MAGNESIUMon 06-29-2023 Magnesium [Mass/Vol] 2.1 mg/dL Normal 1.9-2.7 [facility] Comment on above: Performed By: #### L [id number] ####[facility] ([facility])[address] [place] [address] Magnesium [Mass/Vol] 2.2 mg/dL Normal 1.9-2.7 [facility] Comment on above: Performed By: #### L [id number] #### [facility] ([facility]) [address] [place] [address] Magnesium [Mass/Vol] 1.7 mg/dL Low 1.9-2.7 [facility] Comment on above: Performed By: #### L [id number] #### [facility] ([facility]) [address] [place] [address] NURSNOTEon 06-29-2023 NURSNOTE Notified [place] [facility] Hospitalist critical lactate 2.7 no orders received said she would recheck lactate in 4 hrs Normal [facility] PHOSPHORUSon 06-29-2023 Magnesium [Mass/Vol] 3.5 mg/dL Normal 2.5-5.0 [facility] Comment on above: Performed By: #### L [id number] ####[facility] ([facility])[address] [place] [address] PROTIME-INRon 06-29-2023 INR IN PPP BY COAGULATION ASSAY 0.98 Normal 0.90-1.10 [facility] Comment on above: Result Comment: ACCC P [...] CHEST 1995;108:[id number]. Performed By: #### L [id number] ####[facility] ([facility])[address] [place] [address] PROTHROMBIN TIME (PT) IN PPP BY COAGULATION ASSAY 13.0 Seconds Normal 12.3-14.8 [facility] Comment on above: Performed By: #### L [id number] ####[facility] ([facility])[address] [place] [address] TROPONIN Ion 06-29-2023 Troponin I.cardiac [Mass/Vol] 0.06 ng/mL High 0.00-0.04 [facility] Comment on above: Performed By: #### L [id number] #### [facility] ([facility]) [address] [place] [address] Troponin I.cardiac [Mass/Vol] 0.07 ng/mL High 0.00-0.04 [facility] Comment on above: Performed By: #### L [id number] ####[facility] ([facility])[address] [place] [address] Troponin I.cardiac [Mass/Vol] 0.07 ng/mL High 0.00-0.04 [facility] Comment on above: Performed By: #### L [id number] #### [facility] ([facility]) [address] [place] [address] CBC W MANUAL DIFFon 08-25-19 ANISOCYTOSIS 1+ Normal [facility] Comment on above: Performed By: #### C BCISAIAH ####[facility] [address] [place] [address]Dr. Yilan Yañez ATYPICAL LYMPH # Normal [facility] Comment on above: Performed By: #### C BCISAIAH ####[facility] [address] [place] [id number]. Yilan Yañez ATYPICAL LYMPH % Normal [facility] Comment on above: Performed By: #### C BCISAIAH ####[facility] [address]se[address] [place] [address]Dr. Yilan Yañez BAND # 0.2 103/ul Normal 0.0-0.3 [facility] Comment on above: Performed By: #### C ROSARIO ####[facility] [address] [place] [address]Dr. Yilan Yañez BAND % 1 % Normal 0-5 [facility] Comment on above: Performed By: #### C ROSARIO ####[facility] [address] [place], [place] [address]Dr. Yiashley Yañez BASOM # 0.00 103/ul Normal 0.00-0.10 The [facility] Comment on above: Performed By: #### C ROSARIO ####[facility] [address] [place], [place] [address]Dr. Nahed Yañez BASOM % 0.0 % Critically low 0.2-2.[address] [facility] Comment on above: Performed By: #### C ROSARIO ####[facility] [address] [place] [address]Dr. Yilan Yañez BLAST # Normal [facility] Comment on above: Performed By: #### C ROSARIO ####[facility] [address]hw[address] [place] [address]Dr. Yilan Yañez BLAST % Normal [facility] Comment on above: Performed By: #### C ROSARIO ####[facility] [address]ys[address]lt[address] [place] [address]Dr. Nahed Yañez CORRECTED WBC Normal 4.0-11.0 The [facility] Comment on above: Performed By: #### C ROSARIO ####[facility] [address]fuvf[address] [place], [place] [address]Ct. Nahed Yañez EOS # 0.00 103/ul Normal 0.00-0.70 [facility] Comment on above: Performed By: #### C ROSARIO ####[facility] [address]mbpcrbdb13[address] [place] [phone]. Nahed Yañez EOS% 0.0 % Critically low 0.9-7.[address] [facility] Comment on above: Performed By: #### C ROSARIO ####[facility] Fsowbtfqex12[address] [place] [phone]. Nahed Yañez HCT 33.9 % Critically low 36.0-48.[address] [facility] Comment on above: Performed By: #### C ROSARIO ####[facility] Fiadhmcifl58[address] [place] [phone]. Nahed Yañez HGB 10.8 g/dl Critically low 12.0-16.[address] [facility] Comment on above: Performed By: #### C ROSARIO ####[facility] [address]wbdf9[address] [place] [phone]. Nahed Yañez HYPOCHROMASIA SLIGHT Normal The [facility] Comment on above: Performed By: #### C ROSARIO ####[facility] Xjhmysyrar5[address] [place] [phone]. Nahed Yañez LYMPHM # 2.59 103/ul Normal 1.20-3.80 [facility] Comment on above: Performed By: #### C ROSARIO ####[facility] Drkhipinkx3629 [place] [phone]. Nahed Yañez LYMPHM% 16.0 % Critically low 20.5-60.[address] [facility] Comment on above: Performed By: #### C ROSARIO ####[facility] Vccznpnrkj9[address] [place] [id number]. Nahed Yañez MCH 28.5 pg Normal 26.7-34.0 The [facility] Comment on above: Performed By: #### C ROSARIO ####[facility] Qqwfputfxn7298 [place] [phone]. Nahed Yañez MCHC 31.9 g/dl Normal 29.9-35.2 The [facility] Comment on above: Performed By: #### C ROSARIO ####[facility] [address]zz[address]qaasw6[address] [place] [phone]. Nahed Yañez MCV 89.4 fL Normal 81.0-99.0 [facility] Comment on above: Performed By: #### C ROSARIO ####[facility] Jvtfvxjwld4806 [place] [phone]. Nahed Yañez METAMYELOCYTE # Normal [facility] Comment on above: Performed By: #### C ROSARIO ####[facility] Iikdevhqqj86[address] [place] [phone]. Nahed Yañez METAMYELOCYTE % Normal [facility] Comment on above: Performed By: #### C ROSARIO ####[facility] Qeednvcaax5308 [place] [phone]. Nahed Yañez MONOM# 1.30 103/ul Critically high 0.30-0.80 [facility] Comment on above: Performed By: #### C ROSARIO ####[facility] Widipqpcdo8320 [place] [id number]. Nahed Yañez MONOM% 8.0 % Normal 1.7-12.0 [facility] Comment on above: Performed By: #### C ROSARIO ####[facility] Ufazsgvsrg32[address] [place] [phone]. Nahed Yañez MPV 9.8 fL Normal 9.5-13.5 [facility] Comment on above: Performed By: #### C ROSARIO ####[facility] Dxjesinefg6172 [place] [id number]. Nahed Yañez MYELOCYTE # Normal [facility] Comment on above: Performed By: #### C ROSARIO ####[facility] Ryfvzwixlr8547 [place] [phone]. Nahed Yañez MYELOCYTE % Normal [facility] Comment on above: Performed By: #### C ROSARIO ####[facility] [address] [place], [place] [address]Dr. Nahed Yañez NRBC Normal [facility] Comment on above: Performed By: #### C ROSARIO ####[facility] Wucfdgmght0547 [place], [place] [address]So. Nahed Yañez PLT 302 103/ul Normal 150-450 [facility] Comment on above: Performed By: #### C ROSARIO ####[facility] Stgftvctqj9343 [place], [place] [address]DtShaun Yañez RBC 3.79 106/ul Critically low 4.20-5.40 [facility] Comment on above: Performed By: #### C ROSARIO ####[facility] Ddblcgfuuj5491 [place], [place] [address]Jo. Nahed Yañez RDW 15.3 % Critically high 11.0-15.0 [facility] Comment on above: Performed By: #### C ROSARIO ####[facility] Vavrkgfmdj6490 [place], [place] [address]Ih. Nahed Yañez SEG # 12.15 103/ul Critically high 1.40-6.50 [facility] Comment on above: Performed By: #### C ROSARIO ####[facility] Csppcpjhuy7935 [place], [place] [address]Gh. Nahed Yañez SEG % 75.0 % Normal 43.0-75.0 [facility] Comment on above: Performed By: #### C ROSARIO ####[facility] Xgkwyodago7812 [place], [place] [address]Fk. Nahed Yañez WBC 16.2 103/ul Critically high 4.0-11.0 [facility] Comment on above: Performed By: #### C ROSARIO ####[facility] Qyjedihzvr5131 [place], [place] [address]WjShaun Nahed Yañez POINT OF CARE GLUCOSEon 08-12 Glucose [Mass/Vol] 221 mg/dL Critically high 74-106 [facility] Comment on above: Performed By: #### P OCGLUC ####[facility] Exvqrlmivf2316 [place], [place] [address]EjShaun Yañez PROF 14(COMP METB)on 023 Albumin [Mass/Vol] 2.2 g/dL Critically low 3.4-5.0 [facility] Comment on above: Performed By: #### C RENZO, JUDY ####[facility] [address]ixbs[address] [place] [address]Dr. Nahed Yañez Albumin/Globulin [Mass ratio] 0.6 {ratio} Normal [facility] Comment on above: Performed By: #### C RENZO, JUDY ####[facility] Gywkciwsgb4966 [place] [address]Dr. Nahed Yañez ALP [Catalytic activity/Vol] 87 U/L Normal 46-116 [facility] Comment on above: Performed By: #### C RENZO, JUDY ####[facility] [address] [place], [place] [address]Dr. Nahed Yañez ALT [Catalytic activity/Vol] 17 U/L Normal 14-59 [facility] Comment on above: Performed By: #### C RENZO, JUDY ####[facility] Cpuoautjjf0666 [place] [address]Dr. Nahed Yañez Anion gap [Moles/Vol] 9.4 mmol/L Normal [facility] Comment on above: Performed By: #### C RENZO, JUDY ####[facility] [address]zrrmjoy[address] [place], [place] [address]Dr. Nahed Yañez AST [Catalytic activity/Vol] 13 U/L Critically low 15-37 [facility] Comment on above: Performed By: #### C RENZO, JUDY ####[facility] Jmczragbwv9939 [place] [address]Dr. Nahed Yañez Bilirubin [Mass/Vol] 0.2 mg/dL Normal 0.2-1.0 [facility] Comment on above: Performed By: #### C RENZO, JUDY ####[facility] Usghddkdrs1727 [place] [address]Dr. Nahed Yañez Calcium [Mass/Vol] 9.1 mg/dL Normal 8.5-10.1 [facility] Comment on above: Performed By: #### C RENZO, JUDY ####[facility] Iugluwmzsx4238 [place] [address]Dr. Nahed Yañez Chloride [Moles/Vol] 103 mmol/L Normal 98-107 The [facility] Comment on above: Performed By: #### C RENZO, JUDY ####[facility] Rwxutilowl1853 [place] [address]Dr. Nahed Yañez CO2 [Moles/Vol] 29.1 mmol/L Normal 21.0-32.0 [facility] Comment on above: Performed By: #### C RENZO, JUDY ####[facility] Tgdanjkuqc7920 [place] [address]Dr. Nahed Yañez Creatinine [Mass/Vol] 1.05 mg/dL Critically high 0.55-1.02 The [facility] Comment on above: Performed By: #### C RENZO, JUDY ####[facility] Zqdzjrjfkz6443 [place] [address]Dr. Nahed Yañez EGFR-AF SURINAMESE >60 Normal >=60 [facility] Comment on above: Performed By: #### C RENZO, JUDY ####[facility] Jivbrpxwml1293 [place] [address]Dr. Nahed Yañez EGFR-NON AF SURINAMESE 53 mL/min/1.73m2 Critically low >=60 The [facility] Comment on above: Performed By: #### C RENZO, JUDY ####[facility] Ryiobijjvo7774 [place] [address]Dr. Nahed Yañez Globulin (S) [Mass/Vol] 3.5 g/dL Normal [facility] Comment on above: Performed By: #### C RENZO, JUDY ####[facility] Eeldexrchq2534 [place] [address]Dr. Nahed Yañez Glucose [Mass/Vol] 121 mg/dL Critically high 74-106 [facility] Comment on above: Performed By: #### C RENZO, JUDY ####[facility] Xolredennu8682 [place] [address]Dr. Nahed Yañez Potassium [Moles/Vol] 4.5 mmol/L Normal 3.5-5.1 The [facility] Comment on above: Performed By: #### C RENZO, JUDY ####[facility] Srdotjdekf7123 [place] [address]Dr. Nahed Yañez Protein [Mass/Vol] 5.7 g/dL Critically low 6.4-8.2 [facility] Comment on above: Performed By: #### C MP, JUDY ####[facility] Cpehopezit3318 [place] [address]Dr. Nahed Yañez Sodium [Moles/Vol] 137 mmol/L Normal 136-145 [facility] Comment on above: Performed By: #### C RENZO, JUDY ####[facility] Nvpqkweiov8287 [place] [address]Dr. Nahed Yañez Urea nitrogen [Mass/Vol] 24.0 mg/dL Critically high 7.0-18.0 [facility] Comment on above: Performed By: #### C RENZO, JUDY ####[facility] [address]kedcpvem[address] [place], [place] [address]Dr. Nahed Yañez Urea nitrogen/Creatinine [Mass ratio] 22.9 mg/mg Normal [facility] Comment on above: Performed By: #### C RENZO, JUDY ####[facility] [address]ms[address] [place], [place] [address]Dr. Nahed Otilio THEOPHYLLINEon 08-24-2022 THEOPHYLLINE 18.2 ug/mL Normal 10.0-20.0 [facility] Comment on above: Performed By: #### C RENZO, JUDY ####[facility] Mmvqacascf[address] [place], [place] [address]Dr. Nahed Otilio CBC W MANUAL DIFFon 08-24-19 23 ATYPICAL LYMPH # 0.20 103/ul Normal [facility] Comment on above: Performed By: #### C BCMAN ####[facility] Hdjubdecod[address] [place], [place] [address]Dr. Nahed Otilio ATYPICAL LYMPH % 1 % Normal [facility] Comment on above: Performed By: #### C BCMAN ####[facility] Adawwjmfco9543 [place] [address]Dr. Nahed Yañez BAND # 0.0 103/ul Normal 0.0-0.3 [facility] Comment on above: Performed By: #### C BCISAIAH ####[facility] Hhjastojst1411 [place] [phone]. Yiashley Yañez BAND % 0 % Normal 0-5 [facility] Comment on above: Performed By: #### C BCISAIAH ####[facility] Wmeghnjqxt1631 [place] [id number]. Yiashley Yañez BASOM # 0.00 103/ul Normal 0.00-0.10 [facility] Comment on above: Performed By: #### C BCISAIAH ####[facility] Xgsqmcvcnw6110 [place] [address]Dr. Yiashley Yañez BASOM % 0.0 % Critically low 0.2-2.[address] [facility] Comment on above: Performed By: #### C ROSARIO ####[facility] Dllbeilehe6317 [place] [address]Dr. Yilan Yañez BLAST # Normal [facility] Comment on above: Performed By: #### C ROSARIO ####[facility] Xfaqgqrfaz4552 [place] [address]Dr. Yilan Yañez BLAST % Normal [facility] Comment on above: Performed By: #### C ROSARIO ####[facility] [address]zjgizl[address] [place], [place] [address]Dr. Nahed Yañez CORRECTED WBC Normal 4.0-11.0 The [facility] Comment on above: Performed By: #### C BCISAIAH ####[facility] Ttrwuarrfv1124 [place] [address]Dr. Yiashley Yañez EOS # 0.00 103/ul Normal 0.00-0.70 [facility] Comment on above: Performed By: #### C BCISAIAH ####[facility] [address] [place], [place] [address]Dr. Yiashley Yañez EOS% 0.0 % Critically low 0.9-7.[address] [facility] Comment on above: Performed By: #### C BCISAIAH ####[facility] Lflvqdcvug4683 [place] [address]Dr. Yilan Yañez HCT 33.5 % Critically low 36.0-48.0 [facility] Comment on above: Performed By: #### C ROSARIO ####[facility] Oylaodbqrp5791 [place], [place] [address]Ek. Nahed Yañez HGB 10.7 g/dl Critically low 12.0-16.0 [facility] Comment on above: Performed By: #### C ROSARIO ####[facility] Kwtraxoanr7494 [place], [place] [address]Ux. Nahed Yañez LYMPHM # 1.39 103/ul Normal 1.20-3.80 [facility] Comment on above: Performed By: #### C ROSARIO ####[facility] Cwsyhzlmvi2091 [place], [place] [address]Vh. Nahed Yañez LYMPHM% 7.0 % Critically low 20.5-60.0 [facility] Comment on above: Performed By: #### C ROSARIO ####[facility] Lfusdstzyf6735 [place], [place] [address]Fj. Nahed Yañez MCH 28.5 pg Normal 26.7-34.0 [facility] Comment on above: Performed By: #### C ROSARIO ####[facility] Wdvlpxzszg8152 [place], [place] [address]Al. Nahed Yañez MCHC 31.9 g/dl Normal 29.9-35.2 [facility] Comment on above: Performed By: #### C ROSARIO ####[facility] Wssgkzxtqx3691 [place], [place] [address]He. Nahed Yañez MCV 89.1 fL Normal 81.0-99.0 [facility] Comment on above: Performed By: #### C ROSARIO ####[facility] Vrtmoxpmhu3076 [place], [place] [address]Ae. Nahed Yañez METAMYELOCYTE # Normal [facility] Comment on above: Performed By: #### C ROSARIO ####[facility] Ikljzwlshc0158 [place], [place] [address]Mu. Nahed Yañez METAMYELOCYTE % Normal [facility] Comment on above: Performed By: #### C ROSARIO ####[facility] Whkqyyvrxt8523 [place] [phone]. Nahed Yañez MONOM# 0.40 103/ul Normal 0.30-0.80 [facility] Comment on above: Performed By: #### C ROSARIO ####[facility] Xdrdpfrjpw7159 [place] [phone]. Nahed Yañez MONOM% 2.0 % Normal 1.7-12.0 [facility] Comment on above: Performed By: #### C ROSARIO ####[facility] Drgsjibcyf2389 [place] [address]Dr. Nahed Yañez MPV 10.0 fL Normal 9.5-13.5 [facility] Comment on above: Performed By: #### C ROSARIO ####[facility] [address]fwsqbmp[address] [place], [place] [address]Dr. Nahed Yañez MYELOCYTE # Normal [facility] Comment on above: Performed By: #### C ROSARIO ####[facility] Q[address]xfchrgqb[address] [place], [place] [address]Dr. Nahed Yañez MYELOCYTE % Normal [facility] Comment on above: Performed By: #### C ROSARIO ####[facility] [address]tojpdfitq[address] [place], [place] [address]Dr. Nahed Yañez NRBC Normal [facility] Comment on above: Performed By: #### C ROSARIO ####[facility] Ocdyzunonz6316 [place] [phone]. Nahed Yañez PLT 338 103/ul Normal 150-450 [facility] Comment on above: Performed By: #### C ROSARIO ####[facility] [address]jhyqgae[address] [place], [place] [address]Dr. Nahed Yañez RBC 3.76 106/ul Critically low 4.20-5.40 [facility] Comment on above: Performed By: #### C ROSARIO ####[facility] X[address] [place], [place] [address]Dr. Nahed Yañez RDW 15.3 % Critically high 11.0-15.0 [facility] Comment on above: Performed By: #### C ROSARIO ####[facility] Zkgsnsoxnk05[address] [place] [id number]. Nahed Yañez SEG # 17.91 103/ul Critically high 1.40-6.50 [facility] Comment on above: Performed By: #### C BCMAN ####[facility] Nhnmvuhdka4[address] [place] [id number]. Nahed Yañez SEG % 90.0 % Critically high 43.0-75.0 [facility] Comment on above: Performed By: #### C BCMAN ####[facility] Vvgehjoajs5925 [place] [phone]. Nahed Otilio WBC 19.9 103/ul Critically high 4.0-11.0 [facility] Comment on above: Performed By: #### C BCMAN ####[facility] Cvaqsypjxh8[address] [place] [address]Dr. Nahed Yañez POINT OF CARE GLUCOSEon 08-12 Glucose [Mass/Vol] 200 mg/dL Critically high 74-106 [facility] Comment on above: Performed By: #### P OCGLUC ####[facility] Tsjgdascjd22[address] [place] [address]Dr. Nahed Yañez Glucose [Mass/Vol] 131 mg/dL Critically high 74-106 [facility] Comment on above: Performed By: #### P OCGLUC ####[facility] Nadzaaklmm4[address] [place] [address]Dr. Nahed Otilio Glucose [Mass/Vol] 176 mg/dL Critically high 74-106 [facility] Comment on above: Performed By: #### P OCGLUC ####[facility] Zhbdvcziqi1375 [place] [address]Dr. Nahed Yañez PROF 14(COMP METB)on 023 Albumin [Mass/Vol] 2.2 g/dL Critically low 3.4-5.0 [facility] Comment on above: Performed By: #### T RAFITA CMP ####[facility] Ctublhqgya0172 [place] [address]Dr. Nahed Yañez Albumin/Globulin [Mass ratio] 0.6 {ratio} Normal [facility] Comment on above: Performed By: #### Nydia ELLER, CMP ####[facility] Rllzhvgdsr4161 [place] [phone]. Nahed Yañez ALP [Catalytic activity/Vol] 101 U/L Normal 46-116 [facility] Comment on above: Performed By: #### Nydia ELLER, CMP ####[facility] Fvrypivnjk2537 [place] [phone]. Nahed Otilio ALT [Catalytic activity/Vol] 19 U/L Normal 14-59 [facility] Comment on above: Performed By: #### Nydia ELLER, CMP ####[facility] Dkaxydvnpl9864 [place] [phone]. Rosemarieashley Otilio Anion gap [Moles/Vol] 12.0 mmol/L Normal [facility] Comment on above: Performed By: #### Nydia ELLER CMP ####[facility] Plyafhpciz78[address] [place] [address]Dr. Rosemarieashley Yañez AST [Catalytic activity/Vol] 14 U/L Critically low 15-37 [facility] Comment on above: Performed By: #### Nydia ELLER CMP ####[facility] Jbowwyzwso1468 [place] [phone]. Nahed Otilio Bilirubin [Mass/Vol] 0.2 mg/dL Normal 0.2-1.0 [facility] Comment on above: Performed By: #### Nydia ELLER, CMP ####[facility] Pknelgcirr7374 [place] [address]Dr. Nahed Yañez Calcium [Mass/Vol] 9.5 mg/dL Normal 8.5-10.1 [facility] Comment on above: Performed By: #### Nydia ELLER, CMP ####[facility] Cvcdygkpze5294 [place] [phone]. Nahed Yañez Chloride [Moles/Vol] 105 mmol/L Normal 98-107 [facility] Comment on above: Performed By: #### Nydia ELLER, CMP ####[facility] Afhjyyfzzv8820 [place] [phone]. Nahed Yañez CO2 [Moles/Vol] 27.9 mmol/L Normal 21.0-32.0 [facility] Comment on above: Performed By: #### Nydia ELLER CMP ####[facility] Gemtzjmshy1788 [place] [address]Dr. Nahed Yañez Creatinine [Mass/Vol] 1.08 mg/dL Critically high 0.55-1.02 [facility] Comment on above: Performed By: #### Nydia ELLER CMP ####[facility] Wgppijbgte5[address] [place] [address]Dr. Nahed Yañez EGFR-AF SURINAMESE >60 Normal >=60 [facility] Comment on above: Performed By: #### Nydia ELLER CMP ####[facility] [address]jrruvzsgh[address] [place], [place] [address]Dr. Nahed Yañez EGFR-NON AF SURINAMESE 52 mL/min/1.73m2 Critically low >=60 [facility] Comment on above: Performed By: #### Nydia ELLER CMP ####[facility] Uwbehxeapk7[address] [place], [place] [address]Dr. Nahed Yañez Globulin (S) [Mass/Vol] 3.7 g/dL Normal [facility] Comment on above: Performed By: #### Nydia ELLER CMP ####[facility] Alrgdqlgou09[address] [place], [place] [address]Dr. Nahed Yañez Glucose [Mass/Vol] 182 mg/dL Critically high 74-106 [facility] Comment on above: Performed By: #### Nydia ELLER CMP ####[facility] Ttfgxpqswp5[address] [place], [place] [address]Dr. Nahed Yañez Potassium [Moles/Vol] 3.9 mmol/L Normal 3.5-5.1 [facility] Comment on above: Performed By: #### Nydia ELLER CMP ####[facility] Joexawrery204[address] [place], [place] [address]Dr. Nahed Yañez Protein [Mass/Vol] 5.9 g/dL Critically low 6.4-8.2 [facility] Comment on above: Performed By: #### Nydia ELLER CMP ####[facility] Aocthfgbvp9[address] [place], [place] [address]Dr. Nahed Yañez Sodium [Moles/Vol] 141 mmol/L Normal 136-145 [facility] Comment on above: Performed By: #### Nydia ELLER, CMP ####[facility] Odoyojxobc40[address] [place], [place] [address]Dr. Nahed Yañez Urea nitrogen [Mass/Vol] 20.0 mg/dL Critically high 7.0-18.0 [facility] Comment on above: Performed By: #### Nydia ELLER, CMP ####[facility] Mmugmmdsig60[address] [place], [place] [address]Dr. Nahed Yañez Urea nitrogen/Creatinine [Mass ratio] 18.5 mg/mg Normal [facility] Comment on above: Performed By: #### Nydia ELLER CMP ####[facility] Ohoplizstd7420[address] [place], [place] [address]Dr. Nahed Yañez THEOPHYLLINEon 08-23-2022 THEOPHYLLINE 22.9 ug/mL Critically high 10.0-20.0 [facility] Comment on above: Performed By: #### Nydia ELLER CMP ####[facility] Cczqkrhvqt8[address] [place], [place] [address]Dr. Nahed Yañez CBC AUTO DIFFon 08-22-2022 BASO # 0.0 103/ul Normal 0.0-0.1 [facility] Comment on above: Performed By: #### C BC ####[facility] Zvibtiqigs5[address] [place], [place] [address]Dr. Nahed Otilio Basophils/100 WBC (Bld) 0.1 % Critically low 0.2-2.0 [facility] Comment on above: Performed By: #### C BC ####[facility] Ypqmqfwiew8[address] [place], [place] [address]Dr. Nahed Otilio EO # 0.0 103/ul Normal 0.0-0.7 [facility] Comment on above: Performed By: #### C BC ####[facility] Fwojfgphvy8[address] [place], [place] [address]Dr. Nahed Otilio Eosinophils/100 WBC (Bld) 0.0 % Critically low 0.9-7.0 [facility] Comment on above: Performed By: #### C BC ####[facility] Awbrpusaum7[address] [place] [address]Dr. Nahed Yañez Erythrocyte distribution width (RBC) [Ratio] 15.1 % Critically high 11.0-15.0 [facility] Comment on above: Performed By: #### C BC ####[facility] Ctujrdxtlk1312 [place] [address]Dr. Nahed Yaeñz Hematocrit (Bld) [Volume fraction] 31.4 % Critically low 36.0-48.0 [facility] Comment on above: Performed By: #### C BC ####[facility] Vkeqdtuqtv0439[address] [place], [place] [address]Dr. Nahed Yañez Hemoglobin (Bld) [Mass/Vol] 10.2 g/dL Critically low 12.0-16.0 [facility] Comment on above: Performed By: #### C BC ####[facility] Yqbuogfcef27[address] [place], [place] [address]Dr. Nahed Yañez IG # 0.08 10e3/ul Critically high 0.00-0.03 [facility] Comment on above: Performed By: #### C BC ####[facility] Ngnthscjlb2820[address] [place], [place] [address]Dr. Nahed Yañez IG % 0.6 % Critically high 0.0-0.5 [facility] Comment on above: Performed By: #### C BC ####[facility] Kfzpmbvaae01[address] [place], [place] [address]Dr. Nahed Yañez LYMPH # 0.9 103/ul Critically low 1.2-3.8 [facility] Comment on above: Performed By: #### C BC ####[facility] Suydpxpzrc33[address] [place], [place] [address]Dr. Nahed Yañez Lymphocytes/100 WBC (Bld) 6.1 % Critically low 20.5-60.0 [facility] Comment on above: Performed By: #### C BC ####[facility] Szhsdzbdcl1910[address] [place], [place] [address]Dr. Rosemarieashley Yañez MANUAL DIFF REQ NO Normal [facility] Comment on above: Performed By: #### C BC ####[facility] Hkirrmadas74[address] [place] [phone]. Nahed Yañez MCH (RBC) [Entitic mass] 28.3 pg Normal 26.7-34.0 [facility] Comment on above: Performed By: #### C BC ####[facility] Fhlwsycbeq1297 [place] [phone]. Nahed Yañez MCHC (RBC) [Mass/Vol] 32.5 g/dL Normal 29.9-35.2 [facility] Comment on above: Performed By: #### C BC ####[facility] Vokgdoelzx7055 [place] [address]Dr. Nahed Otilio MCV (RBC) [Entitic vol] 87.0 fL Normal 81.0-99.0 [facility] Comment on above: Performed By: #### C BC ####[facility] Miojdaaehs5[address] [place], [place] [address]Dr. Nahed Otilio MONO # 0.7 103/ul Normal 0.3-0.8 [facility] Comment on above: Performed By: #### C BC ####[facility] Nqjjtunizk7[address] [place], [place] [address]Dr. Nahed Otilio Monocytes/100 WBC (Bld) 5.1 % Normal 1.7-12.0 [facility] Comment on above: Performed By: #### C BC ####[facility] Bbnzimazwt33[address] [place] [address]Dr. Nahed Yañez NEUT # 12.2 103/ul Critically high 1.4-6.5 [facility] Comment on above: Performed By: #### C BC ####[facility] A[address]fveqaow[address] [place], [place] [address]DrShaun Rosemarieashley Yañez Neutrophils/100 WBC (Bld) 88.1 % Critically high 43.0-75.0 [facility] Comment on above: Performed By: #### C BC ####[facility] Myhnfqhonc96[address] [place], [place] [address]DrShaun Rosemarieashley Yañez Platelet mean volume (Bld) [Entitic vol] 10.2 fL Normal 9.5-13.5 [facility] Comment on above: Performed By: #### C BC ####[facility] Ecyovuhgsm6794 [place] [phone]. Nahed Yañez PLT 271 103/ul Normal 150-450 [facility] Comment on above: Performed By: #### C BC ####[facility] Ersrgrpajt0586 [place] [phone]. Nahed Yañez RBC 3.61 106/ul Critically low 4.20-5.40 [facility] Comment on above: Performed By: #### C BC ####[facility] Vlgsexvkin5265 [place] [phone]. Nahed Yañez WBC 13.9 103/ul Critically high 4.0-11.0 [facility] Comment on above: Performed By: #### C BC ####[facility] Bghklztodc7669 [place] [phone]. Nahed Yañez CULTURE URINEon 08-22-2022 CULTURE URINE Culture Observations : LIGHT GROWTH OF MIXED GENITAL MIGUEL. NO POTENTIAL PATHOGENS SEEN. Normal [facility] Comment on above: Performed By: #### U RCX ####[facility] Ktixiaamyb[address] [place], [place] [address]Dr. Nahed Yañez POINT OF CARE GLUCOSEon 08-12 Glucose [Mass/Vol] 252 mg/dL Critically high 74-106 [facility] Comment on above: Performed By: #### P OCGLUC ####[facility] Iozomunjdh1382 [place] [phone]. Nahed Yañez Glucose [Mass/Vol] 293 mg/dL Critically high 74-106 [facility] Comment on above: Performed By: #### P OCGLUC ####[facility] Lqmihsckxc9815[address] [place], [place] [address]Dr. Nahed Yañez Glucose [Mass/Vol] 292 mg/dL Critically high 74-106 [facility] Comment on above: Performed By: #### P OCGLUC ####[facility] Evbotnvnys3004[address] [place], [place] [address]DrShaun Yañez PROF 14(COMP METB)on 023 Albumin [Mass/Vol] 2.1 g/dL Critically low 3.4-5.0 [facility] Comment on above: Performed By: #### C MP ####[facility] Dpthoqysjn3070 [place] [address]Dr. Nahed Yañez Albumin/Globulin [Mass ratio] 0.5 {ratio} Normal [facility] Comment on above: Performed By: #### C MP ####[facility] Htitbhzmnn2497[address] [place], [place] [address]Dr. Nahed Yañez ALP [Catalytic activity/Vol] 92 U/L Normal 46-116 [facility] Comment on above: Performed By: #### C MP ####[facility] Eabriekkbf6394[address] [place], [place] [address]Dr. Nahed Yañez ALT [Catalytic activity/Vol] 19 U/L Normal 14-59 [facility] Comment on above: Performed By: #### C MP ####[facility] Lxuuhwajlr0655[address] [place], [place] [address]Dr. Nahed Yañez Anion gap [Moles/Vol] 15.9 mmol/L Normal [facility] Comment on above: Performed By: #### C MP ####[facility] Nkuiimdfkr2006[address] [place], [place] [address]Dr. Nahed Yañez AST [Catalytic activity/Vol] 8 U/L Critically low 15-37 [facility] Comment on above: Performed By: #### C MP ####[facility] Siqmbqbeon7814[address] [place], [place] [address]Dr. Nahed Yañez Bilirubin [Mass/Vol] 0.3 mg/dL Normal 0.2-1.0 [facility] Comment on above: Performed By: #### C MP ####[facility] Shcrhyqlox053[address] [place], [place] [address]Dr. Nahed Yañez Calcium [Mass/Vol] 9.4 mg/dL Normal 8.5-10.1 [facility] Comment on above: Performed By: #### C MP ####[facility] Xmrpigrjnm6594[address] [place], [place] [address]Dr. Nahed Yañez Chloride [Moles/Vol] 101 mmol/L Normal 98-107 The [facility] Comment on above: Performed By: #### C MP ####[facility] Kvxmhyvlpd8239 [place] [address]Dr. Nahed Otilio CO2 [Moles/Vol] 22.5 mmol/L Normal 21.0-32.0 [facility] Comment on above: Performed By: #### C MP ####[facility] Ozioubdbci3870[address] [place], [place] [address]Dr. Nahed Otilio Creatinine [Mass/Vol] 1.16 mg/dL Critically high 0.55-1.02 [facility] Comment on above: Performed By: #### C MP ####[facility] Xpgkslowph3640[address] [place], [place] [address]Dr. Nahed Yañez EGFR-AF SURINAMESE 58 mL/min/1.73m2 Critically low >=60 [facility] Comment on above: Performed By: #### C MP ####[facility] Ldleqyabgx7983[address] [place], [place] [address]Dr. Nahed Otilio EGFR-NON AF SURINAMESE 47 mL/min/1.73m2 Critically low >=60 [facility] Comment on above: Performed By: #### C MP ####[facility] Ckpgfcoydx[address] [place], [place] [address]Dr. Nahed Yañez Globulin (S) [Mass/Vol] 4.2 g/dL Normal [facility] Comment on above: Performed By: #### C MP ####[facility] Jssrtmmehc1813[address] [place], [place] [address]Dr. Nahed Yañez Glucose [Mass/Vol] 409 mg/dL Critically high 74-106 T [facility] Comment on above: Performed By: #### C MP ####[facility] Gpzglyzlkk2552[address] [place], [place] [address]Dr. Nahed Yañez Potassium [Moles/Vol] 3.4 mmol/L Critically low 3.5-5.1 [facility] Comment on above: Performed By: #### C MP ####[facility] Pzporhhmfr6423[address] [place], [place] [address]Dr. Nahed Yañez Protein [Mass/Vol] 6.3 g/dL Critically low 6.4-8.2 Th e [facility] Comment on above: Performed By: #### C MP ####[facility] Zbbkiniuoq2568[address] [place], [place] [address]Dr. Nahed Yañez Sodium [Moles/Vol] 136 mmol/L Normal 136-145 [facility] Comment on above: Performed By: #### C MP ####[facility] Njhnfrwbxi5627[address] [place], [place] [address]Dr. Nahed Yañez Urea nitrogen [Mass/Vol] 16.0 mg/dL Normal 7.0-18.0 [facility] Comment on above: Performed By: #### C MP ####[facility] Xvezzfzzyz9378[address] [place], [place] [address]Dr. Nahed Yañez Urea nitrogen/Creatinine [Mass ratio] 13.8 mg/mg Normal [facility] Comment on above: Performed By: #### C MP ####[facility] Dggttrhdqm0148[address] [place], [place] [address]Dr. Nahed Yañez THEOPHYLLINEon 08-22-2022 THEOPHYLLINE 13.4 ug/mL Normal 10.0-20.0 [facility] Comment on above: Performed By: #### T RAFITA ####[facility] Vshkivfwqc3[address] [place], [place] [address]Dr. Nahed Yañez UA RANDOM W/MICROSCOPICon BACTERIA NONE SEEN Normal NONE SEEN [facility] Comment on above: Performed By: #### U AMIC ####[facility] Jbgytebycm0737[address] [place], [place] [address]Dr. Nahed Yañez Bilirubin Ql (U) Negative Normal NEGATIVE [facility] Comment on above: Performed By: #### U AMIC ####[facility] Taqxflylpx5340[address] [place], [place] [address]Dr. Nahed Yañez CAST NONE SEEN Normal NONE SEEN [facility] Comment on above: Performed By: #### U AMIC ####[facility] Dbgandnkzd9[address] [place], [place] [address]Dr. Nahed Yañez Clarity (U) CLEAR Normal CLEAR [facility] Comment on above: Performed By: #### U AMIC ####[facility] Yabsqokfwa86[address] [place] [address]Dr. Nahed Yañez Color (U) LT. YELLOW Normal YELLOW The [facility] Comment on above: Performed By: #### U AMIC ####[facility] Kkdxuokpdz1593 [place] [phone]. Nahed Yañez Crystals LM Nom (Urine sed) NONE SEEN Normal NONE SEEN The [facility] Comment on above: Performed By: #### U AMIC ####[facility] Skeenrdxzg1059 [place] [address]Dr. Nahed Yañez Epithelial cells LM Ql (Urine sed) RARE Normal NONE SEEN /RARE The [facility] Comment on above: Performed By: #### U AMIC ####[facility] Mbagsfpsrr0311 [place] [address]Dr. Nahed Yañez Glucose Ql (U) 100 mg/dl Abnormal NEGATIVE The [facility] Comment on above: Performed By: #### U AMIC ####[facility] Ocxsjmtvml01[address] [place], [place] [address]Dr. Yiashley Yañez Hemoglobin Ql (U) Negative Normal NEGATIVE The [facility] Comment on above: Performed By: #### U AMIC ####[facility] Zbrojheghd8224[address] [place], [place] [address]Dr. Yiashley Yañez Ketones Ql (U) Negative Normal NEGATIVE The [facility] Comment on above: Performed By: #### U AMIC ####[facility] Eeaafstvbx46[address] [place], [place] [address]Dr. Yilan Yañez LEUKOCYTES Negative Normal NEGATIVE The [facility] Comment on above: Performed By: #### U AMIC ####[facility] Zvzjnvccuc4894 [place] [address]Dr. Yilan Yañez MUCOUS NONE SEEN Normal NONE SEEN [facility] Comment on above: Performed By: #### U AMIC ####[facility] Fwrrqnyfxr9744 [place] [address]Dr. Yilan Yañez Nitrite Ql (U) Negative Normal NEGATIVE The [facility] Comment on above: Performed By: #### U AMIC ####[facility] Ceezfznlcu9282 [place] [address]Dr. Nahed Yañez pH (U) 5.5 [pH] Normal 5-9 The [facility] Comment on above: Performed By: #### U AMIC ####[facility] Eqkauaxgoj6856 [place] [address]Dr. Nahed Yañez RBC NONE SEEN Abnormal 0-2 The [facility] Comment on above: Performed By: #### U AMIC ####[facility] Spktbwqrpn5229 [place] [address]Dr. Nahed Yañez SPEC GRAVITY 1.020 Normal 1.005-<=1.02 5 The [facility] Comment on above: Performed By: #### U AMIC ####[facility] Rxtncjnkdp8[address] [place], [place] [address]Dr. Nahed Yañez UA PROTEIN Negative Normal NEGATIVE/ TRACE The [facility] Comment on above: Performed By: #### U AMIC ####[facility] Xslnynnotb44[address] [place], [place] [address]Dr. Nahed Yañez Urobilinogen Qn (U) 0.2 {Alem'U}/dL Normal 0.2 - 1. 0 The [facility] Comment on above: Performed By: #### U AMIC ####[facility] Lmftapjdpo79[address] [place], [place] [address]Dr. Nahed Yañez WBC NONE SEEN Normal NONE SEEN The [facility] Comment on above: Performed By: #### U AMIC ####[facility] Mhwaduqlfb6[address] [place], [place] [address]Dr. Nahed Yañez BLOOD GASES BTYon 08-21-2022 02 MODE ROOM AIR Normal The [facility] Comment on above: Performed By: #### A BG ####[facility] Umgrkgagjq5072[address] [place], [place] [address]Dr. Nahed Yañez ALLENS TEST Positive Normal The [facility] Comment on above: Performed By: #### A BG ####[facility] Elkuzqsjzm0314[address] [place], [place] [address]Dr. Nahed Yañez Base excess Calc (Bld) [Moles/Vol] 3.2 mmol/L Critically high -2.0-2.0 [facility] Comment on above: Performed By: #### A BG ####[facility] Qmnvrkhrju3112 [place] [address]Dr. Nahed Yañez BIPAP PRESSURE Normal The [facility] Comment on above: Performed By: #### A BG ####[facility] Fdlnqckdrc0908 [place] [address]Dr. Nahed Yañez CPAP Normal [facility] Comment on above: Performed By: #### A BG ####[facility] Bslcrwfiqs33[address] [place], [place] [address]Dr. Nahed Yañez FIO2 Normal [facility] Comment on above: Performed By: #### A BG ####[facility] Lubizdsmky76[address] [place], [place] [address]Dr. Nahed Yañez HCO3 (Bld) [Moles/Vol] 26.8 mmol/L Critically high 22.0-26 .0 [facility] Comment on above: Performed By: #### A BG ####[facility] Vuwxguovdl5143[address] [place], [place] [address]Dr. Nahed Yañez LPM Normal [facility] Comment on above: Performed By: #### A BG ####[facility] L[address]urvjwel6[address] [place], [place] [address]Dr. Nahed Yañez MINUTE VOLUME Normal The [facility] Comment on above: Performed By: #### A BG ####[facility] Ccbltgafmk[address] [place], [place] [address]Dr. Nahed Yañez Oxygen (Bld) [Partial pressure] 55.1 mm[Hg] Critically low 80.0-100.0 The [facility] Comment on above: Performed By: #### A BG ####[facility] R[address]zccajw[address] [place], [place] [address]Dr. Nahed Yañez Oxygen saturation in Blood 90.2 % Critically low 95.0-100.0 The [facility] Comment on above: Performed By: #### A BG ####[facility] Frothcdnsm40[address] [place], [place] [address]Dr. Nahed Yañez PCO2 36.7 mmHg Normal 35.0-45.0 [facility] Comment on above: Performed By: #### A BG ####[facility] [address]scrcvotej47[address] [place] [address]Dr. Nahed Yañez PEEP [facility] Comment on above: Performed By: #### A BG ####[facility] Djegysnshq7[address] [place] [address]Dr. Nahed Yañez pH (Bld) 7.472 [pH] Critically high 7.350-7.450 [facility] Comment on above: Performed By: #### A BG ####[facility] Ptnhvnfxvc6040 [place] [address]Dr. Nahed Yañez PIP [facility] Comment on above: Performed By: #### A BG ####[facility] Ahcchliude[address] [place], [place] [address]Dr. Nahed Yañez PS [facility] Comment on above: Performed By: #### A BG ####[facility] Xnkkeqyset96[address] [place], [place] [address]Dr. Nahed Yañez PUNCTURE SITE LR Normal [facility] Comment on above: Performed By: #### A BG ####[facility] Yfxrcoktcf9[address] [place], [place] [address]Dr. Nahed Yañez RATE [facility] Comment on above: Performed By: #### A BG ####[facility] Vbraevfgnj[address] [place], [place] [address]Dr. Nahed Yañez VENT MODE [facility] Comment on above: Performed By: #### A BG ####[facility] Ixyrqoeqpn99[address] [place] [address]Dr. Nahed Yañez VT [facility] Comment on above: Performed By: #### A BG ####[facility] Ezjxgynxik[address] [place], [place] [address]Dr. Nahed Yañez BNPon 08-21-2022 Natriuretic peptide B (Bld) [Mass/Vol] 131.0 pg/mL Normal <=900.0 [facility] Comment on above: Performed By: #### B SEWER PIPE CLEANER ####[facility] Wunppbfdea16[address] [place] [id number]. Nahed Yañez CARDIAC FRANCISCO 3-6on 3 CK [Catalytic activity/Vol] 17 U/L Critically low 26-192 [facility] Comment on above: Performed By: #### C MREP ####[facility] Fjtrunipel9280 [place] [id number]. Nahed Yañez CK.MB [Mass/Vol] ng/mL Normal <=3.60 [facility] Comment on above: Performed By: #### C MREP ####[facility] Wrdmdclxzb[address] [place], [place] [address]Dr. Nahed Yañez HSTROP 25.1 pg/mL Normal 4.0-51.3 [facility] Comment on above: Result Comment: CUT- OFF POINTS HAVE BEEN ESTABLISHED BASED ON THE FOURTH UNIVERSAL DEFINITIONS OF MYOCARDIALINFARCTION. THE UPPER REFERENCE LIMIT (URL) OF TROPONIN, DEFINED THE 99TH PERCENTILE OFcTnI DISTRIBUTION IN A REFERENCE POPULATION, HAS BEEN CONFIRMED THE DECISION THRESHOLDFOR [place] DIAGNOSIS. Performed By: #### C MREP ####[facility] Gmonaushfl[address] [place], [place] [address]Dr. Nahed Yañez CARDIAC FRANCISCO ADMITon 023 CK [Catalytic activity/Vol] 39 U/L Normal 26-192 [facility] Comment on above: Performed By: #### ERICK Ordonez MP ####[facility] Yusjjxdabu01[address] [place] [id number]. Nahed Yañez CK.MB [Mass/Vol] ng/mL Normal <=3.60 [facility] Comment on above: Performed By: #### B RENZO, CMADM ####[facility] Yrygpzbzba2414 [place] [id number]. Nahed Yañez HSTROP 24.4 pg/mL Normal 4.0-51.3 [facility] Comment on above: Result Comment: CUT- OFF POINTS HAVE BEEN ESTABLISHED BASED ON THE FOURTH UNIVERSAL DEFINITIONS OF MYOCARDIALINFARCTION. THE UPPER REFERENCE LIMIT (URL) OF TROPONIN, DEFINED THE 99TH PERCENTILE OFcTnI DISTRIBUTION IN A REFERENCE POPULATION, HAS BEEN CONFIRMED THE DECISION THRESHOLDFOR MN DIAGNOSIS. Performed By: #### B RENZO CMADM ####[facility] Bprcybgafe5904 [place] [phone]. Nahed Otilio ANDRE 48 ng/mL Normal 9-82 [facility] Comment on above: Performed By: #### B ERICK MULLER ####[facility] Teamoxwhlp2211 [place] [phone]. Nahed Yañez CBC AUTO DIFFon 08-21-2022 BASO # 0.0 103/ul Normal 0.0-0.1 [facility] Comment on above: Performed By: #### C BC ####[facility] Koilhtjtsk[address] [place], [place] [address]Dr. Nahed Yañez Basophils/100 WBC (Bld) 0.2 % Normal 0.2-2.0 [facility] Comment on above: Performed By: #### C BC ####[facility] Xjytiqftaz[address] [place], [place] [address]Dr. Nahed Yañez EO # 0.3 103/ul Normal 0.0-0.7 [facility] Comment on above: Performed By: #### C BC ####[facility] Zrtjydazun78[address] [place], [place] [address]Dr. Nahed Yañez Eosinophils/100 WBC (Bld) 1.5 % Normal 0.9-7.0 [facility] Comment on above: Performed By: #### C BC ####[facility] Xjfdomgleq9[address] [place], [place] [address]Dr. Nahed Yañez Erythrocyte distribution width (RBC) [Ratio] 15.0 % Normal 11.0-15.0 [facility] Comment on above: Performed By: #### C BC ####[facility] Fqgfrgiocf74[address] [place], [place] [address]Dr. Nahed Yañez Hematocrit (Bld) [Volume fraction] 41.4 % Normal 36.0-48.0 [facility] Comment on above: Performed By: #### C BC ####[facility] Eyeoofzssd6[address] [place], [place] [address]Dr. Nahed Yañez Hemoglobin (Bld) [Mass/Vol] 13.5 g/dL Normal 12.0-16.0 [facility] Comment on above: Performed By: #### C BC ####[facility] Uqfanwqoso20[address] [place] [phone]. Nahed Yañez IG # 0.18 10e3/ul Critically high 0.00-0.03 [facility] Comment on above: Performed By: #### C BC ####[facility] Ipmbaahypt4357 [place] [phone]. Nahed Yañez IG % 1.0 % Critically high 0.0-0.5 [facility] Comment on above: Performed By: #### C BC ####[facility] Eetmclozlq3662 [place] [address]Dr. Nahed Yañez LYMPH # 2.5 103/ul Normal 1.2-3.8 [facility] Comment on above: Performed By: #### C BC ####[facility] Kyhoijihjl[address] [place] [address]Dr. Nahed Yañez Lymphocytes/100 WBC (Bld) 14.0 % Critically low 20.5-60.0 [facility] Comment on above: Performed By: #### C BC ####[facility] Cypxyzdimn5348 [place] [phone] Yañez MANUAL DIFF REQ NO Normal [facility] Comment on above: Performed By: #### C BC ####[facility] Nmtnpnhuew6951 [place] [phone]. Nahed Yañez MCH (RBC) [Entitic mass] 28.5 pg Normal 26.7-34.0 [facility] Comment on above: Performed By: #### C BC ####[facility] Rsfwroladn6294 [place] [phone]. Rosemarieashley Yañez MCHC (RBC) [Mass/Vol] 32.6 g/dL Normal 29.9-35.2 [facility] Comment on above: Performed By: #### C BC ####[facility] Fmkhreglse8525 [place] [phone]. Nahed Yañez MCV (RBC) [Entitic vol] 87.3 fL Normal 81.0-99.0 [facility] Comment on above: Performed By: #### C BC ####[facility] Fkzjhjcluf3564 [place] [phone]. Nahed Yañez MONO # 1.2 103/ul Critically high 0.3-0.8 [facility] Comment on above: Performed By: #### C BC ####[facility] Iuyztcotnb9608 [place] [phone]. Nahed Yañez Monocytes/100 WBC (Bld) 6.8 % Normal 1.7-12.0 [facility] Comment on above: Performed By: #### C BC ####[facility] Creetyxikm6658 [place] [id number]. Nahed Yañez NEUT # 13.8 103/ul Critically high 1.4-6.5 [facility] Comment on above: Performed By: #### C BC ####[facility] Nlmqsktybp0701 [place] [address]Dr. Nahed Yañez Neutrophils/100 WBC (Bld) 76.5 % Critically high 43.0-75.0 [facility] Comment on above: Performed By: #### C BC ####[facility] Ickpnzpmcn1543 [place] [address]Dr. Nahed Yañez Platelet mean volume (Bld) [Entitic vol] 10.5 fL Normal 9.5-13.5 [facility] Comment on above: Performed By: #### C BC ####[facility] Itlfinckga3484 [place] [phone]. Nahed Yañez PLT 319 103/ul Normal 150-450 [facility] Comment on above: Performed By: #### C BC ####[facility] Apmaxemnko8[address] [place], [place] [address]Dr. Nahed Yañez RBC 4.74 106/ul Normal 4.20-5.40 [facility] Comment on above: Performed By: #### C BC ####[facility] Ueouukhdzz7397 [place] [phone]. Nahed Yañez WBC 18.0 103/ul Critically high 4.0-11.0 [facility] Comment on above: Performed By: #### C BC ####[facility] Hiowfuewme5095 [place] [phone]. Nahed Yañez CULTURE BLOODon 08-21-2022 Microscopic examination of blood, culture Culture Observations: NO GROWTH AT 5 DAYS. Normal [facility] Comment on above: Performed By: #### B LDCX2 ####[facility] Kpwryijcfa9447 [place] [phone]. Nahed Yañez Microscopic examination of blood, culture Culture Observations: NO GROWTH AT 5 DAYS. Normal [facility] Comment on above: Performed By: #### B LDCX1 ####[facility] Dcywlgbkxc9353 [place] [phone]. Nahed Yañez [facility]12 SARS-CoV-2 (COVID-19) RNA MIRNA+probe Ql (Unsp spec) Not detected Normal NOT DETECTED [facility] Comment on above: Result Comment: When [...] for this test is supported by the [place] of Health and Human Service's declaration that [...] be used). Performed By: #### C VDTBH ####[facility] Lloldozzfq7087 [place] [phone]. Nahed Yañez LACTATE/LACTIC ACIDon 2022 Lactate [Moles/Vol] 1.1 mmol/L Normal 0.4-2.0 [facility] Comment on above: Performed By: #### L ACT ####[facility] Evnllzenjv0196 [place] [address]Dr. Nahed Yañez Lactate [Moles/Vol] 2.4 mmol/L Critically high 0.4-2.0 [facility] Comment on above: Performed By: #### L ACT ####[facility] Wegmlnmyvn9565 [place] [address]Dr. Nahed Yañez POINT OF CARE GLUCOSEon 08-12 Glucose [Mass/Vol] 453 mg/dL Critically high 74-106 [facility] Comment on above: Performed By: #### P OCGLUC ####[facility] Xsphzipizu44[address] [place], [place] [address]Dr. Nahed Yañez Glucose [Mass/Vol] 358 mg/dL Critically high 74-106 [facility] Comment on above: Performed By: #### P OCGLUC ####[facility] Jzyxzrhhfz110[address] [place], [place] [address]Dr. Nahed Yañez Glucose [Mass/Vol] 98 mg/dL Normal 74-106 [facility] Comment on above: Performed By: #### P OCGLUC ####[facility] Okialqxsrq4060[address] [place], [place] [address]Dr. Nahed Yañez PROF CHEM 8 (BAS METB)on Anion gap [Moles/Vol] 14.7 mmol/L Normal [facility] Comment on above: Performed By: #### B MP, CMADM ####[facility] Ebcpbmotos90[address] [place], [place] [address]Dr. Nahed Yañez Calcium [Mass/Vol] 9.6 mg/dL Normal 8.5-10.1 [facility] Comment on above: Performed By: #### B MP, CMADM ####[facility] Vpxrqsswbj75[address] [place], [place] [address]Dr. Nahed Yañez Chloride [Moles/Vol] 95 mmol/L Critically low 98-107 [facility] Comment on above: Performed By: #### B MP, CMADM ####[facility] Xquwrfkawa25216[address] [place], [place] [address]Dr. Nahed Yañez CO2 [Moles/Vol] 25.2 mmol/L Normal 21.0-32.0 [facility] Comment on above: Performed By: #### ERICK Ordonez MP ####[facility] Jvanfczqrv5889 [place] [address]Dr. Nahed Yañez Creatinine [Mass/Vol] 1.15 mg/dL Critically high 0.55-1.02 [facility] Comment on above: Performed By: #### ERICK Ordonez MP ####[facility] Boeffgvdri[address] [place], [place] [address]Dr. Nahed Yañez EGFR-AF SURINAMESE 58 mL/min/1.73m2 Critically low >=60 [facility] Comment on above: Performed By: #### ERICK Ordonez MP ####[facility] Fusnvqbjbv[address] [place], [place] [address]Dr. Nahed Yañez EGFR-NON AF SURINAMESE 48 mL/min/1.73m2 Critically low >=60 [facility] Comment on above: Performed By: #### ERICK Ordonez MP ####[facility] Xsiqdwqzjy6[address] [place], [place] [address]Dr. Nahed Yañez Glucose [Mass/Vol] 191 mg/dL Critically high 74-106 [facility] Comment on above: Performed By: #### ERICK Ordonez MP ####[facility] T[address]whwsnnqw[address] [place], [place] [address]Dr. Nahed Yañez Potassium [Moles/Vol] 3.9 mmol/L Normal 3.5-5.1 [facility] Comment on above: Performed By: #### ERICK Ordonez MP ####[facility] Bxhpfoiusr[address] [place], [place] [address]Dr. Nahed Yañez Sodium [Moles/Vol] 131 mmol/L Critically low 136-145 [facility] Comment on above: Performed By: #### ERICK Ordonez MP ####[facility] Nqgonlnxst80[address] [place], [place] [address]Dr. Rosemarieashley Yañez Urea nitrogen [Mass/Vol] 15.0 mg/dL Normal 7.0-18.0 [facility] Comment on above: Performed By: #### ERICK Ordonez MP ####[facility] [address] [place], [place] [address]Ip. Nahed Yañez Urea nitrogen/Creatinine [Mass ratio] 13.0 mg/mg Normal [facility] Comment on above: Performed By: #### B RENZO, CMADM ####[facility] Mdisfktngj0658 [place], [place] [address]Fu. Nahed Yañez XR CHEST 2 Von 08-21-2022 XR CHEST 2 V Normal [facility] Coding Summary.on 08-11-2022 Coding Summary. CD:[id number] W w+PGhlYWQ+IN8OCVAwA11 lhYXaiP3mU4PQAIfLShuc LCZEZVtUBvKghoPhRB5nb XNjZXJu IC8+TI0gIUUyYikdkHRpj 7C2iUQ8E82vhz1vHOfdnH O6ASBeStVdhjcoa1fyyEu 6IDcuNmluOyBt MTFfsR58TQY6nF86Th61l KMevWUyu9lxzVk6ZmLcLE LmEJZ9iRqcOBmze5GfOVZ hK13beRFrd9F6 PJDtmDjomZEgRpIqiRF5p T3jIGjjbvzyu6lriqwoSr o5gb68nJYha5R7lUC6Y6N liyL7SONpzUQs XmgadZUWtK9xhfgei8anm nvsVyNsFILuKLu2SWd7GR IreIdcVxNwMO62KEV5CSD btmNsU4YbJVDi oAxiGaP3z4F7Yk8QK7JRX vtyS3HYIXJTYXxjhTN+PC 29tl40I0JgGswvVdb8CDQ dPBZ2dOC8hN1i XGYeZMled5M6jYA6H3Kkh hMmyu2go2afCRIoANduR6 1czVSdn6Q2JWJgyGD0HWA rfAgdDdXrmG50 Oyc+LEZdpObyy9RcIfqwk 3gmp2iyfMr6TgmdJAOvdq CslVtzLJU8a3DpQu7uKSD gkET2oKD1lM4u MdKsQhZ9EFtzQ100QlAaj EVkJhypL85rO9XxrRO+PH YfMfp1EXIwaKduJZ2dS0W hZGRpbmctbGVm hOgzNU7zSMGlbobsATPpl M4zVTLbI1a7XqNjHsY4QI zaK4BcYSOexfxeIw15sF9 vJoKgWdY2WCpy S6GcdcA7RECymQCuESriC ZF1K18at7F2WZMqESViSA O0pLO8zZ2spCdwscezxET mdDsgdmVydGlj YDiyBYtyK175ATLxxQhpO kNvZGluZyBEYXRlOiAgMD MvMzEvMjAyMzwvdGQ+PHR nLAL8jRnbRZGv qECjEDyoZx0rhTehcNhmH J8tFAAhzzpkQCOruO3lAU FxbBAxaVuxIN0kIRAtmgi gu002KvPfFHD1 UHTfySNgX3WjrI9kUcWeP LHbLEBwZ6DikAJnZZxnH0 37JBocLjU5TTDibdKfG0O sLWFsaWduOiB0 y4S7Wn8Wh4JvonlrV1Zcp DTeMsHzDkqbZGg2P6SfKw wvdHI+MK15TKJnNY53PFi 6SNM4rIafUAup FORyI6IynU3sRiUeWNXvN GRkOyc+PHRhYmxlIHdpZH RoPScxMDAlJyBzdHlsZT0 sAu6sRCOyQJEq cGomvOCaAqByn4yhKEQkW VneSV0mfVghZ5RmzQO1HF Gog4i3Cz85D93jF8AggGQ +WPFbiHX7rXU9 eS0dOrNwSpZ5ZCsaS785X cMhkCLqOyhaa3vie3smnW t6YkP9IWTvjkKryTteOBB 2r9CmRf65V81t IHdpZHRoPSIxNSUiIHZhb Gedes9tlD9kWt7+PGNvbC E0rHV2oF6jShRnOzI0ZXz rE461YaWvwSAx Aiwgh4lxq9njnQm3NbWgE ZCohhOhsBjnTWL2l8JiIc 44W6UwzRcgl7JhXcs1vy3 0aOVaj0M3gIA6 L1WeNEBahxsioONndOfpL R7mPELbwvyzBLMwpX4jBZ LsF6c4IrQpLqQ5QAyeQ2L jrtB2CQYjhJKm XSHkyLDDkJ6kkxpuh1odq cxqYuYlSRQuDAc2USy2RQ BkwTedMaGmKVO5UzN4GFI 1zTYptJ3dbUjt jagqkK1gZqy+TSS0fZCpx CHCCY5mSuiugWC+PHRkIH P8rJqeOOcoTWBnrH5nJEK rF8g0KtMyNwJ5 RFurL2QvprN9EBSquBGtG DWmhYZXwX2rgixdq0zebv vsHkArJTNoAOx4TQd7QOD saWduOiBsZWZ0 EoY2RNX7fDMzvD6ggAfaa qebhX9uEjj+QmlydGggRG Y2UBe3Z0WtCap2JYEavZs bUK5ioKRtRNvf Zv2rxLmjkXkoZN1zURPnz srol282LlRsu2vmYMYrcS TpWPlfBQG7I12ky6G4SAI rTMSaOOH5iWG7 jU7vhZqpxyfghJBjcGgly jYkcDazAPwtBSygT698HT IbtNeeQvGgSYr6H6TiOsz 9FKMghPxtHK6b zJEvQLheVh6keMsbpHiaB C2rAYZzkjhjr890ZtQzg9 fxRZAjjVSyKOmxZWJ2R03 fl4D5PXXhMFRs ALD1iKW4hQ4yvAyikjhzf GVmdDsgdmVydGljYWwtYW aeT763BXYdiXrbEsOuvVh 5J7NnRbj9EIHf tLhcJE9xaSFlNUasNh3bg XodlWijKX2mCPQfuwadh6 18IwIxd1qmWHEnwREiUFp qHAT6L67ao5P6 LPLzQYNvKZK3fNP1mL3pd GlnbjogbGVmdDsgdmVydG bgFVsjMDmjH677WRKieLb nPlBhdGllbnQg OBvdMSl4Q3JjKcrwsUF+P I01IZAbHU51jNLhaQCgr9 olfTg6NjTqYPRqKVT5aVo gSVgnk5KlRTFp O34pcDEfr9I2JIWctRrxx OHuCyXkbIJ5oJ3uFRgfwr smu8ahgxewFgkmq6exmg2 5nB68K15qCDkp ZHRoPSIzMCUiIHZhbGlnb h0vaY8bTg5+HIGpjAO0lB H2eQ1cETFyMlX0HAtbK75 9InRvcCIvPjxj a5mph9osiYz9SmZ0OOMte lZiuFmlTMM5b9OjJa99Y7 9sIHdpZHRoPSIyMCUiIHZ ozMamfj3fuH3a Ii8+ACGfxCR7rGW3qD6zA wTqCaK4BZlpB521ZmRuvW SaJkfoY26yX5VwpAZ+PHR lNkf5QUWcvRcc CV3psXQiUDbsQa3yQNO3T bLzIgGgSPyxA1QnRSIimy wnwhzkmEX2DWRxJMZepM7 9Zd7fcBrbLCXl wXUGaA3ykoqtp4pidtbwZ rXiSOPvLQs1NMx9WWGbjO cmVgRxBTE6FmE4ZOA2uBO iuP9aiHkioagt wD3aQ0IqDTEzzyrcUd98g Z3gAvZvYlQ8DAocNso+TU TISU3MEBALVQNTEQV1J5T mWec8IMYzkLny PD8hmZJtPPhzQw7zjAcoj CalTM5vAVYtvvekZZOljH 6eEWWzjCIagFikBH9nEOO ksnzar862EzGk XOY7HVRacFSwS8SpoS5fN qEfSFUkJVZoE4SunDKvHC orT386QItaPnJ5GVCxklR wA3AyRHNidJxt LzF5k9H6Ds5oTN9sMK7tH BWtZI48WD60tFZiv7T2pV C9P9XtJZOvkvnycrtcuGH 6UKDxPBWuoV12 aETiJNlvKg2ii9F8v251J VXxECFjzZ86Qt8hkFfeZR WqtFRByG0zctqyn4hibdl gIzAwMDAwMDt0 GVm2OJXtgWwhCdCySAP0M gD5QKE7vZXthQ5spQkjup suwC2gSbx+NjEgWWVhcnM 1M2TdNiz4XMPf fNvqBG2hvMVcWYolAv6yv VcmlQezXX6kPVEalqmcJW TqeH0uWGYyvKLquEsxVG3 cARFonclgw210 KtEcBHK2IZWxiSJgM6Cce A1xNzXkLQHqWMYbN6WfbM InBLzfF709LFhxBkE0QYH grrZhY1JeSNIi aXhwFlW5x8C4Ss3QJS7ua KS4E7XuIrz3OHPtsNbjXI 2fjFCfHTfkNs0laIhinGi lWR6uKHVmvkkf XTPjkJ6wLJGpiNGptXxhA M8jEWYfytwvj237AxYdGD K8SFYkcTInY0GkkG6rVgD jGGJzFVBeG5Mo bMWlUOrdS146LPojNkT3R TIcqzIiC2LqWLYxrZxhDl L1x0T4Cy3CyQZhR7CvP1o 6Q1VuQdeurWH+ UD76ABHuJT28fRDajJSrq 6fwbYa3TzTpLNWaLDX5tJ vyDFwix4UmRYIoM43ajKP ej9L3ALChjUoq dQEdWjDtcGF8kH6rKNoru ecik1kdgdlgVbgfh0miwz 51eP86Z03xSLrhNRIwMKY zMCUiIHZhbGln bl4fpE2sRy4+SUDibYV9f II6gN9rCgTnUgG7DFjqI6 78IwGlkSGkSjxwn6mdn6o spGi3SpRmGGTv qhUmeCgxWZJ6h8AvTn52R 29sIHdpZHRoPSIyMCUiIH YjrRdeqa8qeE3oVf3+PC9 mm2uerx82uV49 dHI+UCZvUKH4xKodFSluS UAhcM7rSGdbKcD6JJYkPm BkxT42qPZkEOhpRo1aeUe ckScpSF4cLYHy gvwkq497YeJuo9tqMNYdh VNpNMioQKP3E46ii8Z0RE VkMQOsIGB6mBA4nK8tdTn nbjogbGVmdDsg voCdwLspETpvHHuvY849A KOayLuoNsNkdHAgW7vmix JJUC1hYycpwYC+PHRkIHN 0eWxlPSdwYWRk jB2pBMVfB7s4ZkCmNsF6T AsuB7SfjaC6FPNffIWtOV YonYNIrU9tokssu2xdrtu gIzAwMDAwMDt0 QPu0TUPmwFbrYdDcQBG5Q tN2UFL6oJNxyB3emIvddk hdkO1bBnm+RklOOjwvdGQ +RPMpWFP8sRjl SMdpHSBmwL2aBITxW8s2G aNaMgM8UXueN6GbnnR5NZ SkqKKaLMVynLQCdQ4gkht jx0bdskgiGsZm RWQhBRk8ABr6YTRvxNkfS qCiAIZ6ZoJ7DCP1nIAgiA 5joPwjiffatP0fPde+TVJ OOjwvdGQ+PHRk JOC1yKisDSzgVLFcgZ2tP DObW3a9CmSdReD8VIvjZ1 PmbgY3ICIboDCeUIRqsNU SnQ2bpejql5qd mcggQtZfNSXqZGl5VSw4S HSleGofOoAeIMY4EwP2YF J5oTJftW7gyAeceeobxD9 wOyc+VVH4RXA8 GB36JD98B5OnYatedAXvz +PHRhYmxlIHdpZHRoPS pqOTQtPbUhrPerNO0sRl2 yZGVyLWNvbGxh cHNlOiBj (more content not included)... Normal [facility] Auto Diffon 08-09-2022 Basophils/100 WBC (Bld) 0.5 % Normal 0.0-2.0 [facility] Comment on above: Order Comment: Order Added by Discern Expert. Performed By: #### 2 119009, 3903103, 59564114, 5595646, 39365508, 48616555, 53321668 ####[facility] [address] [place] [address] Basophils/Leukocytes Auto (Bld) [Pure # fraction] 0.1 E9/L Normal 0.0-0.2 [facility] Comment on above: Order Comment: Order Added by Discern Expert. Performed By: #### 2 251400, 3281226, 50043827, 0848145, 98019352, 23257803, 42717273 ####[facility] [address] [place] [address] Eosinophils/100 WBC (Bld) 2.7 % Normal 0.0-8.0 [facility] Comment on above: Order Comment: Order Added by Discern Expert. Performed By: #### 2 760661, 6475569, 87646940, 2801678, 80525475, 06176563, 42304464 ####[facility] [address] [place] [address] Eosinophils/Leukocytes Auto (Bld) [Pure # fraction] 0.4 E9/L Normal 0.0-0.5 [facility] Comment on above: Order Comment: Order Added by Discern Expert. Performed By: #### 2 920336, 6346396, 40067260, 5137787, 99941276, 91503724, 13423772 ####[facility] [address] [place] [address] Lymphocytes/100 WBC (Bld) 12.8 % Low 14.0-50.0 [facility] Comment on above: Order Comment: Order Added by Discern Expert. Performed By: #### 2 952228, 5772357, 22427628, 3711887, 99825876, 73321805, 27943892 ####[address] [place] [address] Lymphocytes/Leukocytes Auto (Bld) [Pure # fraction] 2.1 E9/L Normal 1.0-4.0 [facility] Comment on above: Order Comment: Order Added by Discern Expert. Performed By: #### 2 169686, 8918847, 02241444, 8206771, 19310584, 59087850, 59677418 ####[address] [place] [address] Monocytes/100 WBC (Bld) 6.4 % Normal 4.0-14.0 [facility] Comment on above: Order Comment: Order Added by Discern Expert. Performed By: #### 2 428546, 3737162, 63341344, 6400182, 82729172, 08763214, 04981858 ####[address] [place] [address] Monocytes/Leukocytes Auto (Bld) [Pure # fraction] 1.0 E9/L Normal 0.2-1.0 [facility] Comment on above: Order Comment: Order Added by Discern Expert. Performed By: #### 2 013151, 7729982, 53776402, 5499964, 07219177, 25541795, 70180270 ####[facility] [address] [place] [address] Neutrophils/100 WBC (Bld) 77.6 % High 36.0-75.0 [facility] Comment on above: Order Comment: Order Added by Discern Expert. Performed By: #### 2 669550, 7294868, 03393973, 4314539, 69383715, 30144526, 43659047 ####[facility] [address] [place] [address] Neutrophils/Leukocytes Auto (Bld) [Pure # fraction] 12.6 E9/L High 2.0-7.5 [facility] Comment on above: Order Comment: Order Added by Discern Expert. Performed By: #### 2 728844, 6114248, 16076638, 3492542, 22385311, 31502771, 08729349 ####[facility] [address] [place] [address] BMPon 08-09-2022 Creatinine [Mass/Vol] 1.1 mg/dL Normal 0.5-1.[address] [facility] Comment on above: Performed By: #### 2 856153, 6251161, 40901269, 3008638, 45536854, 56592821, 26699397 ####[facility] [address] [place] [address] Urea nitrogen [Mass/Vol] 18 mg/dL Normal 5-21 [facility] Comment on above: Performed By: #### 2 761088, 5871998, 58994520, 5315609, 64828885, 44832203, 90490302 ####[facility] [address] [place] [address] Urea nitrogen/Creatinine [Mass ratio] 16 No Units Normal 10-20 [facility] Comment on above: Performed By: #### 2 085222, 5671954, 73403560, 0177790, 38502452, 87369867, 73614087 ####[facility] [address] [address] Anion gap [Moles/Vol] 13 mmol/L Normal 6-[address] [facility] Comment on above: Performed By: #### 2 963487, 7321632, 55752498, 9014821, 98949754, 70712251, 00070714 ####[facility] [address] [place] [address] Calcium [Mass/Vol] 8.8 mg/dL Low 8.9-11.1 [facility] Comment on above: Performed By: #### 2 868094, 0831277, 27038771, 4959732, 68879877, 83306763, 93172071 ####[facility] [address] [place] [address] Chloride [Moles/Vol] 101 mmol/L Normal 101-111 [facility] Comment on above: Performed By: #### 2 281677, 5791440, 39965365, 1449674, 27193978, 35017942, 98911763 ####[facility] [address] [place] [address] CO2 [Moles/Vol] 27 mmol/L Normal 21-31 [facility] Comment on above: Performed By: #### 2 016525, 9103894, 83588140, 2186046, 87232293, 47890104, 19589316 ####[facility] [address] [place] [address] Glucose [Mass/Vol] 121 mg/dL Normal 55-199 [facility] Comment on above: Result Comment: If t his glucose result represents a fasting glucose, interpretation should refer to the following reference range: 55-99 mg/dL Performed By: #### 2 373688, 8643413, 06694055, 0700532, 33125327, 30143587, 13851366 ####[facility] [address] [place] [address] Potassium [Moles/Vol] 3.9 mmol/L Normal 3.5-5.[address] [facility] Comment on above: Performed By: #### 2 442621, 1792879, 87758325, 7091934, 77440457, 97520428, 72972039 ####[facility] [address] [place] [address] Sodium [Moles/Vol] 137 mmol/L Normal 135-145 [facility] Comment on above: Performed By: #### 2 230558, 3935725, 58646507, 6213626, 48813931, 43237395, 17263422 ####[facility] [address] [place] [address] BNPon 08-09-2022 Int Ctr BNP Pass Normal [facility] Comment on above: Performed By: #### 2 801920, 0767644, 30428590, 2417452, 93116014, 86337492, 77310034 ####[facility] [address] [place] [address] Natriuretic peptide B (Bld) [Mass/Vol] 19 pg/mL Normal 5-80 [facility] Comment on above: Performed By: #### 2 186253, 3174114, 89321729, 3405937, 63417347, 33580571, 25555576 ####[facility] [address] [place] [address] Blood Gas Art, with Lytes, G alex, [place] 08-09-2022 a/A Ratio Art 75.90 % Normal >=0.80 [facility] Comment on above: Performed By: #### 4 [id number] ####[facility] [address] [place] [address] AaDO2 Art 21.9 mmHg High 5.0-15.0 [facility] Comment on above: Performed By: #### 4 [id number] ####[facility] [address] [place] [address] Allens Test Not Applicable Normal [facility] Comment on above: Performed By: #### 4 [id number] ####[facility] [address] [facility] [place] [address] Base Excess Arterial 3.1 mmol/L Normal >=2.8 [facility] Comment on above: Performed By: #### 4 [id number] ####[facility] [address] [facility] [place] [address] cCa2+ Art 4.86 mg/dL Normal 4.40-5.30 [facility] Comment on above: Performed By: #### 4 [id number] ####[facility] [address] [facility] [place] [address] cCl- Art 105.0 mmol/L Normal 101.0-111.0 [facility] Comment on above: Performed By: #### 4 [id number] ####[place] [address] [facility] [place] [address] cGlu Art 117 mg/dL High 55-99 [facility] Comment on above: Performed By: #### 4 [id number] ####[place] [address] [facility] [place] [address] cK+ Art 4.0 mmol/L Normal 3.5-5.3 [facility] Comment on above: Performed By: #### 4 [id number] ####[facility] [address] [facility] [place] [address] cLac Art 1.4 mmol/L Normal .5-2.2 [facility] Comment on above: Performed By: #### 4 [id number] ####[facility] [address] [facility] [place] [address] shelf stocker+ Art 142.0 mmol/L Normal 135.0-145.0 [facility] Comment on above: Performed By: #### 4 [id number] ####[facility] [address] [facility] [place] [address] Drawn by RLG Invalid Interpretation Code [facility] Comment on above: Performed By: #### 4 [id number] ####[facility] [address] [facility] [place] [address] FCOHb Art 1.0 % Low 1.5-4.9 [facility] Comment on above: Result Comment: Refe rence range Nonsmoker <1.5% Smoker <5.0% Heavy Smoker <9.0% Performed By: #### 4 [id number] ####[facility] [address] [facility] [place] [address] FIO2 BG 21 Invalid Interpretation Code [facility] Comment on above: Performed By: #### 4 [id number] ####[facility] [address] [place] [address] FMetHb Art 0.5 % Normal 0.0-1.9 [facility] Comment on above: Performed By: #### 4 [id number] ####[facility] [address] [facility] [place] [address] FO2Hb Art 92.6 % Normal 92.0-100.0 [facility] Comment on above: Performed By: #### 4 [id number] ####[facility] [address] [place] [address] HCO3 (Bld) [Moles/Vol] 27.1 mmol/L High 22.0-26.0 [facility] Comment on above: Performed By: #### 4 [id number] ####[facility] [address] [facility] [place] [address] Hemoglobin (Bld) [Mass/Vol] 12.5 g/dL Normal 12.0-16.0 [facility] Comment on above: Performed By: #### 4 [id number] ####[facility] [address] [facility] [place] [address] Oxygen saturation in Blood 94.1 % Low 95.0-100.0 [facility] Comment on above: Performed By: #### 4 [id number] ####[facility] [address] [place] [address] P CO2 Arterial 48.9 mmHg High 35.0-45.0 [facility] Comment on above: Performed By: #### 4 05152685 ####[facility] [address] [place] [address] P O2 Arterial 68.8 mmHg Low 80.0-100.0 [facility] Comment on above: Performed By: #### 4 [id number] ####[facility] [address] [place] [address] pH Arterial 7.383 Normal 7.350-7.450 [facility] Comment on above: Performed By: #### 4 [id number] ####[place] [address] Sample Site R Brachial Normal [facility] Comment on above: Performed By: #### 4 [id number] ####[place] [address] Sample Type Arterial Draw Normal [facility] Comment on above: Performed By: #### 4 [id number] ####[address] [address] CBC w/ Auto Diffon 3 Erythrocyte distribution width (RBC) [Ratio] 15.4 % High 10.9-14.2 [facility] Comment on above: Performed By: #### 2 329671, 9451663, 97540004, 5429558, 79067887, 71498412, 00259484 ####[address] [address] Hematocrit (Bld) [Volume fraction] 36.9 % Normal 34.0-46.0 [facility] Comment on above: Performed By: #### 2 199884, 5016207, 21467230, 0981572, 53330347, 51320613, 52398166 ####[facility] [address] [place] [address] Hemoglobin (Bld) [Mass/Vol] 11.8 g/dL Low 12.0-16.0 [facility] Comment on above: Performed By: #### 2 262882, 9765495, 55988602, 1969588, 98742670, 83650955, 52513325 ####[facility] [address] [place] [address] MCH (RBC) [Entitic mass] 28.0 pg Normal 27.0-34.0 [facility] Comment on above: Performed By: #### 2 318531, 2268507, 84734723, 7825906, 93006272, 69830784, 91446257 ####[facility] [address] [place] [address]357 MCHC (RBC) [Mass/Vol] 32.0 g/dL Normal 31.4-36.[address] [facility] Comment on above: Performed By: #### 2 476922, 9238376, 79070144, 7131983, 56524629, 26875683, 73361572 ####[address] [address] MCV (RBC) [Entitic vol] 87.6 fL Normal 80.0-100.0 [facility] Comment on above: Performed By: #### 2 413535, 1126010, 33523059, 2384127, 41176701, 74706539, 33304968 ####[address] [address] Platelet mean volume (Bld) [Entitic vol] 8.4 fL Normal 6.4-10.8 [facility] Comment on above: Performed By: #### 2 548180, 7571835, 16237064, 7993774, 94572646, 43753707, 84851038 ####[address] [address] Platelets (Bld) [#/Vol] 238.0 E9/L Normal 150.0-500.0 [facility] Comment on above: Performed By: #### 2 131394, 6884285, 47165096, 4349383, 31776813, 30634135, 79817128 ####[address] [address] RBC (Bld) [#/Vol] 4.2 E12/L Low 4.3-5.9 [facility] Comment on above: Performed By: #### 2 415655, 9438045, 82566029, 2265249, 82318908, 14756523, 58067877 ####[facility] [address] [place] [address] WBC corrected for nucl RBC Auto (Bld) [#/Vol] 16.3 E9/L High 4.0-11.0 [facility] Comment on above: Result Comment: Slid e reviewed by LW. Performed By: #### 2 881766, 3856411, 56364137, 6451384, 22299490, 88444629, 37133763 ####[facility] [address] [place] [address] CHEMISTRYOrdered By: SYSTEM SYSTEM on 08-09-2022 Troponin I.cardiac [Mass/Vol] 7.00 pg/mL Low 10.10 - 27.10 pg/mL [facility] Remisol Anion gap [Moles/Vol] 13 mmol/L Normal [...] 50 mL/min/1.73 m2 Low >=59mL/min/[address] [facility] Chem S Glucose [Mass/Vol] 121 mg/dL Normal 55 - 199 mg/dL FT Remisol Potassium [Moles/Vol] 3.9 mmol/L Normal 3.5 - 5.3 mmol/L [facility] Remisol Sodium [Moles/Vol] 137 mmol/L Normal 135 - 145 mmol/L FT Remisol Troponin I.cardiac [Mass/Vol] 4.00 pg/mL Low 10.10 - 27.10 pg/mL FT Remisol Urea nitrogen [Mass/Vol] 18 mg/dL Normal 5 - 21 mg/dL FT Remisol Urea nitrogen/Creatinine [Mass ratio] 16 mg/mg Normal 10 - [address] [facility] Remisol CHEMISTRYOrdered By: Evelyn montenegroer on 08-09-2022 Natriuretic peptide B (Bld) [Mass/Vol] 19 pg/mL Normal 5 - 80 pg/mL [facility] HemeManSS COAGULATIONOrdered By: Sagar Castorena on 08-09-2022 aPTT Coag (PPP) [Time] 31.4 s Normal 25.1 - 36.5 second(s) [facility] Auto Coag INR Coag (PPP) [Relative time] 0.9 {INR} Invalid Interpretation Code [facility] Auto Coag PT Coag (PPP) [Time] 10.3 s Normal 9.4 - 1 2.5 second(s) [facility] Auto Coag CTA Cheston 08-09-2022 CTA Chest [...] no acute osseous changes. Report Ordering Provider: Clinotn Lucero FINAL REPORT Dictated: 08/09/2022 3:42 pm Phil Alvarez MD, V. Signed (Electronic Signature): 08/09/2022 3:42 pm Signed by: Phil Alvarez MD, V. Transcribed by: SRAVANI Technologist: SANTOS Technical Comments GFR (mL/min/1/73m2) 50 Contrast: Isovue 370 Contrast amount in ml's: 73 Normal [facility] Discharge Instructionson Discharge Instructions [id number]# 1.00CD:127 Normal [facility] ED Clinical Summaryon 2022 ED Clinical Summary [place] [address] ED Clinical Summary Person Information Name: VIVIAN VANN Vika/[facility] Age: 62 Years : 1960 Sex: Female Language: Bahamian PCP: Екатерина Robert MD Marital Status: Visit [...] 08/09/2022 18:01:49 08/09/2022 18:01:49 08/09/2022 18:01:49 AD[address]: [address] [id number] PHYS DOC NOTES: MEDICAL INFORMATION: Prescriptions Given: [facility], [address] [place], [place] [id number], [phone] brompheniramine/dextr omethorphan/PSE (Bromfed DM oral syrup) 5 [...] Follow up: With: Address: When: Екатерина Robert [address] [place] [address], [facility] [place] [id number] Business (1) In 3 days 08/12/2022 Comments: Call the office of your primary care doctor to arrange for follow-up within the above-stated timeframe. Follow-up with your primary care doctor about this ED visit. You should review your labs, imaging, and diagnoses from this ED visit with your primary care physician. If y (more content not included)... Normal [facility] ED Note-Physicianon 08-10-19 ED Note-Physician Basic [...] that she has had 2 admissions to [facility] over the last few weeks for pneumonia/COPD exacerbation. Patient is currently on amoxicillin at home, feels that her symptoms are not improving but are in fact worsening. Patient endorses fevers and chills, myalgias. Patient reports her symptoms had not improved much on her last discharge from [place], and worsening since that time. Patient is [...] and Complexity of Problems Differential Diagnosis: [] [facility] Data External documents reviewed: [] My EKG [...] for co (more content not included)... Normal [facility] Comment on above: Result Comment: Elec [...] these instructions at home: Medicines ? Take jqej-nhn-ybqdvxo and prescription medicines (inhaled or pills) only [...] you e (more content not included)... Normal [facility] ED Patient Summaryon 023 ED Patient Summary [address] [address] Patient Discharge Instructions Person Information Name: VIVIAN VANN Age: 62 Years Arrival Date: 08/09/2022 13:09:07 Discharge Diagnosis: COPD exacerbation Primary Care Physician: Екатерина Robert MD Provider Information Primary Provider: Arsenio Martin DO [employer] Back Tender:Clinton Lucero PA-C The exam and treatment you received in the Emergency Department were for an urgent problem and are not intended as complete care. It is important that you follow up with a doctor, nurse practitioner, or physician?s assistant signal maintainer for ongoing care. If your symptoms become worse or you do not improve as expected and you are unable to reach your usual health care provider, you should return to the Emergency Department. We are available 24 hours a day. VIVIAN VANN has been given the following list of patient education materials, prescriptions and follow-up instructions: Follow-up Instructions: With: Address: When: Екатерина Robert [address] [place] [address], [facility] [place] [address] Business (1) In 3 days [...] opioids can be used to help relieve krecqpkw-ec-ftvqvq pain and are often prescribed following a [...] Safely disp (more content not included)... Normal [facility] EMS Documentationon 08-10-19 23 EMS Documentation Please click on link to see report [id number] CiX5+prnDQolQUJDcGRmI PHpXaB1NJxdSeRrYH3ntt 7GYMcRW7CkSPSwQMh8Vl8 I LSicWYy1JGXsBB0SY7toZ Wq9BtV3Yu1RrP9dMAHgsa RqUHEXK77dTiwwTjGsJGx cSTBcVma4UuFF Yr4hIVOoMTLkEJPbUFIdP CAgICAgICAgICAgICAgIC AgICAgICAgICAgICAgICA gICAgICAgICAg ICAgICAgICAgICAgICAgI CAgICAgDQplbmRvYmoNCg 9UnYYdCw6YBwEpCqBYQyC wMDAwMDAwMzIg IMHlZAPlnq4VGZEaVVLaC YA6AMZvBGPcZJHcMPdlHY KqFHIyGLj0UMCzPHHmRK5 NCjAwMDAwMDE3 REFdRFHrTKAfbn9CEOUtE DAwMTkzNCAwMDAwMCBuDQ qnZWMeAIExKMi9LMShVNT tYJ6UCnXyPQQk SOWzJfLuZDBkTPMdof3CC DAwMDAwMjMxNSAwMDAwMC HaRPgqCIUzLIDrUyp3SPM nGJHrXJ9HEsFa VWPtHGR4RNwlOAOdHKJcs i9KGYWhWHPoYjlzLUCdZY AwMCBuDQowMDAwMDAzMDY eFUZcBJNaIC3C SnKsRBGyDYB6QNCwNBLiE LTzjs2ZKFMzRNWxVaGmFn AwMDAwMCBuDQowMDAwMDA gBCX1ACNsOAWi YG6PWrFhQMWiBTUkFCJjB XGmJHJfcx3HFSZxRYRgVA P3VnBdRTPaXOBnEChlKMM dZJW3UkN7XAPq ETZpPK5ERuPcPCSkZLM8H IBgKJXvQHQyxz0NNAQcGL HtJUQ1VPInYCCbTJYnJUf iINGaHQT8OWL6 ETIuNJWfXB9OAcWdNPKsD SV5LIbqBCLxVYWxhb9ZMI AwMDAwOTMwMCAwMDAwMCB uDQowMDAwMDQ5 BEhqEMYgFKPcPI6LUfNfQ VBxNVS4DNIzUPXqVPEnbz 6NxKZojLgmkv0ZPRnBY6a OIFk9HUDCVPN2 JjT7A4C6FsD6QLsYTFllB DJ2YGASQtU1NSG+CjxGRj TvQ2HRAJFWUBMaGcwcMTH FMRD2XJoaREt1 ICIoNC8wYd4CvlI3AQY3W VpoXNrmMw0vsWHrVwXfWS LTT9LiqjUgPIgUU6TzmBV iJQYhF0DJYXD2 Tc66KkljrMgYKCO6NUPYS SzzSF1LXtdSLxVoHYqrDz 77M7AZi7C7RdDbH4IYzRn PrnMEXPvgG8sK fFG2y9dbnAiLmUMVnMmcI GdJcndPalFSQUlqUHNXaE 87sbvSW9QeOCe8P2ICVp2 BOVyzFvOauK2H xFexDWN5nF8dIOXCOXzHY xtsSK5SZNGRMIm5RVr+Pi AgICAgICAgICAgICAgICA gICAgICAgICAg ICAgICAgICAgICAgICAgI CAgICAgICAgICAgICAgIC AgICAgICAgICAgICAgICA gICAgICAgICAg ICAgICAgICAgICAgICAgI CAgICAgICAgICAgICAgIC AgICAgICAgICAgICAgICA gICAgICAgICAg ICAgICAgICAgICAgICAgI CAgICAgICAgICAgICAgIC AgICAgICAgICAgICAgICA gICAgICAgICAg ICAgICAgICAgICAgICAgI CAgICAgICAgICAgICAgIC AgICAgICAgICAgICAgICA gICAgICAgICAg ICAgICAgICAgICAgICAgI CAgICAgICAgICAgICAgIC AgICAgICAgICAgICAgICA gICAgICAgICAg ICAgICAgICAgICAgICAgI CAgICAgICAgICAgICAgIC AgICAgICAgICAgICAgICA gICAgICAgICAg ICAgICAgICAgICAgICAgI CAgICAgICAgICAgICAgIC AgICAgICAgICAgICAgICA gICAgICAgICAg MF4De3DyxmX4ykXvGTbsC CfaDFKVEt5BEXphTqQmQT 2fmb8TWGhXG85bkZEuJAU hIDIxIDAgUgov K5GxgsKviIklbyQnRlAfK RKVEf7NcUJXZIenK5O4eH moSUIaQDwbBRNOCf4KUOx xVO4nQLZzYBUx Iq1pWRyeIJQwRCBoNxDhA QMCFj8MnLVlME6ULZQeyJ 9nCj4+DQplbmRvYmoNCg0 KMjQgMCBvYmoN Sxi4Vg5DuVm2YJAzA0BnM HRtJJIga4LdAe1TMH3ryS isXUL2Fy4LVQo7Va5+DQp tzURjKY5QOjxr O7XbTVPaUULxHNWmQCePj XCgAIUpQLYQVIyLgXHaDQ jzpTYDMsAQZzMCEmJQzMC eFxU5ZZtZX5Q9 NWnHVjTeq2N0WHyXQTQGM bIwUFyPdGrL8nCLtSxHgw E20RP5nObGVZXuHAQC7GO uuCvK8NiCXt5I 8H7DDC5ay1OeJKKwAXzsn vIiRyuZEi0XYcAzIROyMf eCSub8Xb6Ow173TL74pmK bNDIgMCBSXQov ZONsjVVGe3qmMoNaCRY6I ARhOctdFOyuSRZfCV74HW BaBBFbClslGnPhq2HlJ3L bCWo0Zj3AB7Ll JNR2BQo1Lm2LMDPkCuLxC vMgFDPJDh0ZCj1JL5Y4jW PiK6PhX0EISr0YGnOcCE1 wzf6PTYgdJzCx WJ5fnz0HIYdIZ6XMu4iuM nSsHJM7LHWiNiszJFbwWo axqCTjAR8GeYK4HKIaE06 dBTxbIEEeZ5Ag BAf4Vr6XGFXuwVKwMQKrH RtGT7uKAbtmH5YpLInSZ6 aoIlW8MZMbDDWdYuy+Pgo +IfvtP3YuvAmv ZMAhDj5hdDqlJCvqTYNtH S0hjiNllVm+Zm9Uj3KfHK CbRTf2fOSS1PVw2WBwOWG lRBW7YLFxyiGY QMrz2GaToLYqGoWycNFgC 0hmFOVz89kWTZThQjwRl7 ukAfYp8JdZBP+AU5RUmcD qRgZfnw1BECuo rbMyuEZgOG1NPzKxDI9kh p1OMShjMgAlCN5dpu8VFV bCM1OBKA7Se3BwHAuXX0M OILPNP8qLMLYI D3dIXDFZU8nAPNAGH64JW VBKM5YPJHBukGRES1GbHR MCOv4HWvSeMD5mne9BMMi qLPUqOC3ort4Z IOxPC5TKLO5Vo8CtOTfDZ 9HdLCQEEy3UCxLtIE1ysn 1OJCndZUElNV5mct3JEHn WS3GWRM8Nj6Fy FVgZQ6KRMSCCR2xTUHNYP 9vQYWQUH4dGYMANR73IKL NHI9SHYXSklALLS8UyVHD QWq3IVaNzOD5j za7TZFexXYHaWI2twl7XO PvTP1Ayl0KZw981WQ4VKy gJRH2xH692cqxgke5tm5O TLUJvbGRNVAov IPJnB8NzICQvxPFgbqXfW GtoKWXmNKQzRb5NyyXgYS luZyAvSWRlbnRpdHktSAo tX8DedTvjVBJm ASpbMWGYS7LtWA6jV97sY OZnTyHcKTYDL9U8lWCeV4 SsueXAVc7DJvWsKJ8rnz7 DGYwrNJWcIU8d nt1AKUmJX9Ipo2JDu820P B5XPuqHVR8iZ464jcctgw 0ut0BVZRDsfBFKBQieA9g PF4qpqRGjTI0y dmC4BSqiO1DsLPEnjiigS RrhQZ45nDI3XSgdJhAhlG Y4gvjoRLJoz6YtVAkxF7N wcGxlbWVudCAw Cj4+Sw0KEXBYn7cAED6yg FXvNREbgzXohKxXF8KVAI OPN8EbyaGLIBCupgpmoU0 yIDMyIDAgUgov V5ZmgCppXMCmG1nWJe8ov UN7pGRyGl1CaUHsMZ0Wn0 65Nl7EGKnnLWlaJVBzAW7 lUYs1Oa7ETg6W YeYbVD4nsb4NKLlePfVvO L6wsl3RAAnDV9QaZ9VzkE X6UnRaWEP9BMGMW5MadVf wvIlzwHE5CUPa Bem1TMmQP2Dyy1YzobSeQ lUuVuI9Wfh8In7ArWPboz MqZBkmKq9acUJMh9isPc8 jYKIpIBx5PZVx SQyyUQ01QEsnNmK2PTVdV zKgONMzLDJhML1eJLM9BI 8PO6HsyzCYzEnxIzW2EMN wISGUF0JenhLJ GM5aWI5KExxLPX7nF947v mdylt6qw8SILLMwmXRHKH dkYNYgkYyfBT6kkCDqWLd dL3XosRYtVhTi XTcaOAgND1M9eTOfJ8Gpu sXNGTWmzyhbgU3gYs3+DQ pkheCiSqcQDx7OFtKkLQO yVquAPsg6Bk1Q vTa2ASFmZ9CeJQXfLYBhk 3KaPr5RQZ8cpVxfFqE7Uz 4+UMfhfKYtOK1ZXouyRUC HsvEpITh8X6bQ HwAPPMlPFReexgQvB5PnS 8f9oRoEkMuk3Z4zfiXShd piO6tlv63R2O3+lRwm5FX MxpCAx0X0i7f3 jBA0SLjmBYh9YjqbKe9m5 BxLoridpwBDY/uRlSXnyV fPPtHUyCCX1mffINDsAFv tt9n5eHvM83lt vzCADVywquIa+nt87yk5o xQmgOsu6Td4GB0KoWAis1 pWBsNCdnCyaer7Jrbku2E KYLwHu9OpXJJc /5RkSe282fH4lY4yriQGA Ci7dKQKKhXSrGmi7h7gCv TyWD4TyI1bMmYQ4u2PadD Tl5i30iOGN4Il RvIayawgcodHIYmkChnJi xckc/EjXR1fy0WdDMD+y+ oFvEYoBugc3EbsVz2JecV U87oLKToT77/A oB9QTa7qnxanIt4QFX0jy 3RyZWFtDQplbmRvYmoNCg 4FSdFmDYEwDnjUXrj4Gl2 VVPFhJh5joNGv WxfINYpUB1CuySMcJFWUX LcUP50CPq2MNHBzGF2yUL 41Ai6gjZDhAaU5JYIbEa0 DN9BuY59asL3l FF8MVIIqoSe6dA1CGr9Tw PD2kNCdMV6HsDBvTXqvQU 8Aiitfn2GpTAM4 (more content not included)... 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 Resp Auto SS Drawn by RLG Invalid Interpretation Code [facility] Resp Auto SS FCOHb Art 1.0 % Low 1.5 - 4.9 % [facility] Resp Auto SS FIO2 BG [address] [facility] Resp Auto SS FMetHb Art 0.5 % Normal 0.0 - 1.9 % FT Resp Auto SS FO2Hb Art 92.6 % Normal 92.0 - 100.0 % [facility] Resp Auto SS HCO3 (Bld) [Moles/Vol] 27.1 mmol/L High 22.0 - 26.0 mmol/L FT Resp Auto SS Hemoglobin (Bld) [Mass/Vol] 12.5 g/dL Normal 12.0 - 16.0 gm/dL [facility] Resp Auto SS P CO2 Arterial 48.9 mm[Hg] High 35.0 - 45.0 mmHg FT Resp Auto SS P O2 Arterial 68.8 mm[Hg] Low 80.0 - 100.[address] [facility] Resp Auto SS pH Arterial 7.383 Normal 7.350 - 7.450 [facility] Resp Auto SS Sample Site R Brachial (08/09/22 2:03 PM) Normal [facility] Resp Auto SS Sample Type Arterial Draw (08/09/22 2:03 PM) Normal [facility] Resp Auto SS HEMATOLOGYOrdered By: SYSTEM SYSTEM [...] 32.0 g/dL Normal 31.4 - 36.0 gm/dL [facility] HemeAutoSS MCV (RBC) [Entitic vol] 87.6 fL [...] Coag (PPP) [Time] 31.4 second(s) Normal 25.1-36.5 [facility] Comment on above: Result Comment: Para [...] the same coagulation reagent and instrumentation as [facility]. Currently there are no coagulation studies available worldwide for children to 14 days, and no normal ranges. Heparin therapeutic range (represented by Anti-Factor Xa activity of 0.2 - 0.4 U/mL) corresponds to PTT of 56.6 - 109.0 sec. Performed By: #### 2 [id number], [id number], [id number], [id number], [id number], [id number] ####[facility] [address] [place] [address] INR Coag (PPP) [Relative time] 0.9 {INR} Invalid Interpretation Code [facility] Comment on above: Result Comment: INR results are specifically intended to assess patients stabilized on long-term Anticoagulation therapy suggested INR?s ?Less Intensive Anticoagulation? 2.0 ? 3.0 Conventional Range 3.0 ? 4.5 Performed By: #### 2 [id number], [id number], [id number], [id number], [id number], [id number] ####[facility] [address] [place] [address] PT Coag (PPP) [Time] 10.3 second(s) Normal 9.4-12.5 [facility] Comment on above: Result Comment: 15 [...] the same coagulation reagent and instrumentation as [facility]. Currently there are no coagulation studies available worldwide for children to 14 days, and no normal ranges. Performed By: #### 2 [id number], [id number], [id number], [id number], [id number], [id number], [id number] ####[facility] [id number] [place] [address] Pre-Arrival Noteon 3 Pre-Arrival Note Pre-Arrival Summary Name: , Current Date: 08/09/2022 13:09:29 EDT Gender: Female Date of : Age: 62 Pre-Arrival Type: EMS ETA: 08/09/2022 13:33:00 EDT Primary Care Physician: Presenting Problem: sob Pre-Arrival User: John Martin Referring Source: Location: [place] Completion Date/Time: 08/09/2022 13:03:00 [facility] Emergency Department Pre-Hospital Report Form Vital Signs: Pre-Hospital Report: Treatment in Route: Response to Treatment: Misc. Issues: Normal [facility] Troponin 0 Hr.on 08-09-2022 Troponin I.cardiac [Mass/Vol] 4.00 pg/mL Low 10.10-27.10 [facility] Comment on above: Result Comment: The 95% CI (Confidence Interval) PPV (Positive Predictive Value) for myocardial infarction in females is 38 pg/mL, in males 51 pg/mL. The results should be used in conjunction with clinical conditions of myocardial infarction. (Access High Sensitivity Troponin I Instructions For Use, [employer], December 2017) Performed By: #### 2 [id number], [id number], [id number], [id number], [id number], [id number] ####[facility] [address] [place] [address] Troponin 3 Hr.on 08-09-2022 Troponin I.cardiac [Mass/Vol] 7.00 pg/mL Low 10.10-27.10 [facility] Comment on above: Result Comment: The 95% CI (Confidence Interval) PPV (Positive Predictive Value) for myocardial infarction in females is 38 pg/mL, in males 51 pg/mL. The results should be used in conjunction with clinical conditions of myocardial infarction. (Access High Sensitivity Troponin I Instructions For Use, [employer], December 2017) Performed By: #### 1 [id number] ####[id number] [place] [address] XR Chest Single Viewon 08-09 XR Chest [...] mGy = na DAP = na Normal [facility] eGFRon 08-09-2022 GFR/1.73 sq M.predicted among blacks MDRD (S/P/Bld) [Vol rate/Area] mL/min/{1.73_m2} Normal >=59 [facility] Comment on above: Order Comment: Order added by Discern Expert. Result Comment: eGFR is race adjusted. AA=. Performed By: #### 2 [id number], [id number], [id number], [id number], [id number], [id number] ####[facility] [address] [place] [address] GFR/1.73 sq M.predicted among non-blacks MDRD (S/P/Bld) [Vol rate/Area] 50 mL/min/1.73 m2 Low >=59 [facility] Comment on above: Order Comment: Order added by Discern Expert. Result Comment: [employer] valeria kidney disease could be indicated at eGFR's of less than 60 mL/min/1.73m2. Kidney failure is indicated at less than 15 mL/min/1.73m2. Performed By: #### 2 [id number], [id number], [id number], [id number], [id number], [id number], [id number] ####[facility] [address] [place] [address] CBC W MANUAL DIFFon 08-02-19 23 ATYPICAL LYMPH # Normal [facility] Comment on above: Performed By: #### C ROSARIO ####[facility] Qvveysmqfv13[address] [place] [id number]. Nahed Yañez ATYPICAL LYMPH % Normal [facility] Comment on above: Performed By: #### C ROSARIO ####[facility] Xusmbichrm7632 [place] [id number]. Nahed Yañez BAND # 0.9 103/ul Critically high 0.0-0.3 The [facility] Comment on above: Performed By: #### C ROSARIO ####[facility] Mbakkodraz[address] [place] [address]Dr. Yilan Yañez BAND % 5 % Normal 0-5 [facility] Comment on above: Performed By: #### C ROSARIO ####[facility] Hftfumnsao4587 [place] [address]Dr. Nahed Yañez BASOM # 0.00 103/ul Normal 0.00-0.10 [facility] Comment on above: Performed By: #### C ROSARIO ####[facility] Gyrmgfdavo[address] [place] [address]Dr. Nahed Yañez BASOM % 0.0 % Critically low 0.2-2.[address] [facility] Comment on above: Performed By: #### C ROSARIO ####[facility] [address] [place], [place] [address]Dr. Nahed Yañez BLAST # Normal [facility] Comment on above: Performed By: #### C ROSARIO ####[facility] Uhlirbkmcz[address] [place] [address]Dr. Nahed Yañez BLAST % Normal [facility] Comment on above: Performed By: #### C ROSARIO ####[facility] Agnzivlszc[address] [place] [address]Dr. Nahed Yañez CORRECTED WBC Normal 4.0-11.0 The [facility] Comment on above: Performed By: #### C ROSARIO ####[facility] Ujrifinvwv08[address] [place] [address]Dr. Nahed Yañez EOS # 0.00 103/ul Normal 0.00-0.70 [facility] Comment on above: Performed By: #### C ROSARIO ####[facility] Jdwuvjxiwo[address] [place], [place] [address]Yc. Nahed Yañez EOS% 0.0 % Critically low 0.9-7.[address] [facility] Comment on above: Performed By: #### C ROSARIO ####[facility] Vphyqzfvwr7978 [place], [place] [address]Sm. Nahed Yañez HCT 39.5 % Normal 36.0-48.0 [facility] Comment on above: Performed By: #### C ROSARIO ####[facility] Dsoqnqrdgx6035 [place], [place] [address]Eb. Nahed Yañez HGB 13.0 g/dl Normal 12.0-16.0 [facility] Comment on above: Performed By: #### C ROSARIO ####[facility] Fifnegvzms9964 [place] [id number]. Nahed Yañez LYMPHM # 1.72 103/ul Normal 1.20-3.80 [facility] Comment on above: Performed By: #### Isabell PONCE ####[facility] Azjyebkyko7337 [place], [place] [address]Dz. Nahed Yañez LYMPHM% 10.0 % Critically low 20.5-60.[address] [facility] Comment on above: Performed By: #### Isabell PONCE ####[facility] Nmnzuvvtau0241 [place], [place] [address]Am. Nahed Yañez MCH 28.7 pg Normal 26.7-34.0 [facility] Comment on above: Performed By: #### Isabell PONCE ####[facility] Zqyaaxkgmu2948 [place], [place] [address]Hf. Nahed Yañez MCHC 32.9 g/dl Normal 29.9-35.2 The [facility] Comment on above: Performed By: #### Isabell PONCE ####[facility] Qtxaurdpyg1715 [place], [place] [address]Xj. Nahed Yañez MCV 87.2 fL Normal 81.0-99.0 The [facility] Comment on above: Performed By: #### Isabell PONCE ####[facility] Wzgllhqphe5288 [place] [id number]. Nahed Yañez METAMYELOCYTE # Normal [facility] Comment on above: Performed By: #### C ROSARIO ####[facility] Ydgquzzejy4265 [place] [id number]. Nahed Yañez METAMYELOCYTE % Normal [facility] Comment on above: Performed By: #### C ROSARIO ####[facility] Kiuwxhvgdl1756 [place] [phone]. Nahed Yañez MONOM# 0.86 103/ul Critically high 0.30-0.80 [facility] Comment on above: Performed By: #### C ROSARIO ####[facility] Dkezdzgesx7581 [place] [id number]. Nahed Yañez MONOM% 5.0 % Normal 1.7-12.0 [facility] Comment on above: Performed By: #### C ROSARIO ####[facility] Jtqebqagkc0237 [place] [phone]. Nahed Yañez MPV 9.8 fL Normal 9.5-13.5 [facility] Comment on above: Performed By: #### C ROSARIO ####[facility] Ggcalulutb1471 [place] [phone]. Nahed Yañez MYELOCYTE # Normal [facility] Comment on above: Performed By: #### C ROSARIO ####[facility] Yjmucsikkw5722 [place] [id number]. Nahed Yañez MYELOCYTE % Normal [facility] Comment on above: Performed By: #### C ROSARIO ####[facility] Osmumvykqz6509 [place] [phone]. Nahed Yañez NRBC Normal [facility] Comment on above: Performed By: #### C ROSARIO ####[facility] Elxfthbhql7253 [place] [phone]. Nahed Yañez PLT 388 103/ul Normal 150-450 [facility] Comment on above: Performed By: #### C ROSARIO ####[facility] Tyxuvghime5057 [place] [phone]. Rosemarieashley Otilio RBC 4.53 106/ul Normal 4.20-5.40 [facility] Comment on above: Performed By: #### C GILBERTOMAN ####[facility] Wtwubcxeyp6253 [place] [id number]. Nahed Yañez RDW 14.4 % Normal 11.0-15.0 [facility] Comment on above: Performed By: #### C ROSARIO ####[facility] Frigvygmcb4691 [place], [place] [address]Cq. Nahed Yañez SEG # 13.76 103/ul Critically high 1.40-6.50 [facility] Comment on above: Performed By: #### C ROSARIO ####[facility] Zkntykmrvo8993 [place] [id number]. Nahed Yañez SEG % 80.0 % Critically high 43.0-75.0 [facility] Comment on above: Performed By: #### C ROSARIO ####[facility] Bcnhnmvhof7356 [place] [phone]. Nahed Yañez WBC 17.2 103/ul Critically high 4.0-11.0 [facility] Comment on above: Performed By: #### C ROSARIO ####[facility] Amqlcwotln4384 [place] [phone]. Nahed Yañez MAGNESIUMon 08-01-2022 Magnesium [Mass/Vol] 2.0 mg/dL Normal 1.8-2.4 [facility] Comment on above: Performed By: #### MG COLE, CMP ####[facility] Sjtfrafzzq1658 [place] [phone]. Nahed Yañez POINT OF CARE GLUCOSEon 07-13 Glucose [Mass/Vol] 267 mg/dL Critically high 74-106 [facility] Comment on above: Performed By: #### P OCGLUC ####[facility] Lynumrpnez0357 [place] [phone]. Nahed Yañez PROF 14(COMP METB)on 023 Albumin [Mass/Vol] 3.4 g/dL Normal 3.4-5.0 [facility] Comment on above: Performed By: #### Nydia ELLER MG, CMP ####[facility] Vtvsznmcyi25[address] [place] [address]Dr. Nahed Yañez Albumin/Globulin [Mass ratio] 0.9 {ratio} Normal [facility] Comment on above: Performed By: #### MG COLE, CMP ####[facility] Rxplczrcez4001 [place] [address]Dr. Nahed Yañez ALP [Catalytic activity/Vol] 100 U/L Normal 46-116 [facility] Comment on above: Performed By: #### MG COLE, CMP ####[facility] Ywembmndkv9257 [place] [address]Dr. Nahed Yañez ALT [Catalytic activity/Vol] 19 U/L Normal 14-59 [facility] Comment on above: Performed By: #### MG COLE, CMP ####[facility] Nymljcpigv0558 [place] [address]Dr. Nahed Yañez Anion gap [Moles/Vol] 12.7 mmol/L Normal [facility] Comment on above: Performed By: #### MG COLE, CMP ####[facility] Spvyxseskt0223 [place] [address]Dr. Nahed aYñez AST [Catalytic activity/Vol] 13 U/L Critically low 15-37 [facility] Comment on above: Performed By: #### MG COLE, CMP ####[facility] Ywhwpqkmgz4408 [place] [address]Dr. Nahed Yañez Bilirubin [Mass/Vol] 0.4 mg/dL Normal 0.2-1.0 [facility] Comment on above: Performed By: #### MG COLE, CMP ####[facility] Obxjveoseh8544 [place] [address]Dr. Nahed Yañez Calcium [Mass/Vol] 9.5 mg/dL Normal 8.5-10.1 [facility] Comment on above: Performed By: #### MG COLE, CMP ####[facility] Awdyfibsql2476 [place] [address]Dr. Nahed Yañez Chloride [Moles/Vol] 100 mmol/L Normal 98-107 [facility] Comment on above: Performed By: #### MG COLE, CMP ####[facility] Tctxyhvqkw[address] [place], [place] [address]Dr. Nahed Yañez CO2 [Moles/Vol] 27.1 mmol/L Normal 21.0-32.0 [facility] Comment on above: Performed By: #### MG COLE, CMP ####[facility] Jujvsepejv[address] [place], [place] [address]Dr. Nahed Yañez Creatinine [Mass/Vol] 1.16 mg/dL Critically high 0.55-1.02 The [facility] Comment on above: Performed By: #### MG COLE, CMP ####[facility] Sljuhqbbzd[address] [place], [place] [address]Dr. Nahed Yañez EGFR-AF SURINAMESE 58 mL/min/1.73m2 Critically low >=60 The [facility] Comment on above: Performed By: #### MG COLE, CMP ####[facility] Yozlpzcxvm50[address] [place], [place] [address]Dr. Nahed Yañez EGFR-NON AF SURINAMESE 47 mL/min/1.73m2 Critically low >=60 The [facility] Comment on above: Performed By: #### MG COLE, CMP ####[facility] Tjjeurcnil[address] [place], [place] [address]Dr. Nahed Yañez Globulin (S) [Mass/Vol] 3.6 g/dL Normal [facility] Comment on above: Performed By: #### MG COLE, CMP ####[facility] W[address]gqaesl[address] [place], [place] [address]Dr. Nahed Yañez Glucose [Mass/Vol] 175 mg/dL Critically high 74-106 [facility] Comment on above: Performed By: #### MG COLE, CMP ####[facility] Dwddpcxcxi5127[address] [place], [place] [address]Dr. Rosemarieashley Yañez Potassium [Moles/Vol] 3.8 mmol/L Normal 3.5-5.1 [facility] Comment on above: Performed By: #### T RAFITA, MG, CMP ####[facility] Clxgthbvdc1242 [place] [address]Dr. Nahed Yañez Protein [Mass/Vol] 7.0 g/dL Normal 6.4-8.2 [facility] Comment on above: Performed By: #### Nydia ELLER MG, CMP ####[facility] Pcbijgbvhy5728 [place] [address]Dr. Nahed Yañez Sodium [Moles/Vol] 136 mmol/L Normal 136-145 [facility] Comment on above: Performed By: #### Nydia ELLER MG, CMP ####[facility] Kcyijtvqgq[address] [place], [place] [address]Dr. Nahed Yañez Urea nitrogen [Mass/Vol] 25.0 mg/dL Critically high 7.0-18.0 [facility] Comment on above: Performed By: #### Nydia ELLER MG, CMP ####[facility] Qgywvvywwz7[address] [place], [place] [address]Dr. Nahed Yañez Urea nitrogen/Creatinine [Mass ratio] 21.6 mg/mg Normal [facility] Comment on above: Performed By: #### Nydia ELLER MG, CMP ####[facility] Rmwyivuhcl[address] [place], [place] [address]Dr. Nahed Yañez THEOPHYLLINEon 08-01-2022 THEOPHYLLINE 17.1 ug/mL Normal 10.0-20.0 [facility] Comment on above: Performed By: #### MG COLE, CMP ####[facility] Vajzojrgas[address] [place], [place] [address]Dr. Nahed Yañez CBC AUTO DIFFon 07-31-2022 BASO # 0.0 103/ul Normal 0.0-0.1 [facility] Comment on above: Performed By: #### C BC ####[facility] Mvdctuetfn6[address] [place], [place] [address]Dr. Nahed Yañez Basophils/100 WBC (Bld) 0.2 % Normal 0.2-2.0 [facility] Comment on above: Performed By: #### C BC ####[facility] [address]vwfzufk[address] [place], [place] [address]Dr. Nahed Yañez EO # 0.0 103/ul Normal 0.0-0.7 [facility] Comment on above: Performed By: #### C BC ####[facility] Poozcetiwc8987 [place] [id number]. Nahed Yañez Eosinophils/100 WBC (Bld) 0.0 % Critically low 0.9-7.0 [facility] Comment on above: Performed By: #### C BC ####[facility] Hfhdxsbbnj5336 [place] [address]Dr. Nahed Yañez Erythrocyte distribution width (RBC) [Ratio] 14.2 % Normal 11.0-15.0 [facility] Comment on above: Performed By: #### C BC ####[facility] Fyzekqpwhl[address] [place], [place] [address]Dr. Nahed Yañez Hematocrit (Bld) [Volume fraction] 36.0 % Normal 36.0-48.0 [facility] Comment on above: Performed By: #### C BC ####[facility] Wldgzjpfri7[address] [place], [place] [address]Dr. Nahed Yañez Hemoglobin (Bld) [Mass/Vol] 11.4 g/dL Critically low 12.0-16.0 [facility] Comment on above: Performed By: #### C BC ####[facility] [address]mszvtf[address] [place], [place] [address]Dr. Nahed Yañez IG # 0.21 10e3/ul Critically high 0.00-0.03 The [facility] Comment on above: Performed By: #### C BC ####[facility] Uxrynctzne9457 [place] [id number]. Nahed Yañez IG % 1.8 % Critically high 0.0-0.5 [facility] Comment on above: Performed By: #### C BC ####[facility] Eorxtypsag[address] [place], [place] [address]Dr. Nahed Yañez LYMPH # 1.3 103/ul Normal 1.2-3.8 [facility] Comment on above: Performed By: #### C BC ####[facility] [address]ymtneeynb[address] [place], [place] [address]Dr. Nahed Yañez Lymphocytes/100 WBC (Bld) 11.2 % Critically low 20.5-60.0 [facility] Comment on above: Performed By: #### C BC ####[facility] Ouwllzdltp3488 [place] [address]Dr. Nahed Yañez MANUAL DIFF REQ NO Normal [facility] Comment on above: Performed By: #### C BC ####[facility] Vkobxeygrb9499 [place] [address]Dr. Nahed Yañez MCH (RBC) [Entitic mass] 27.7 pg Normal 26.7-34.0 [facility] Comment on above: Performed By: #### C BC ####[facility] [address]ohyyfwdk33[address] [place], [place] [address]Dr. Nahed Yañez MCHC (RBC) [Mass/Vol] 31.7 g/dL Normal 29.9-35.2 [facility] Comment on above: Performed By: #### C BC ####[facility] Pautdcwhow[address] [place], [place] [address]Dr. Nahed Yañez MCV (RBC) [Entitic vol] 87.6 fL Normal 81.0-99.0 [facility] Comment on above: Performed By: #### C BC ####[facility] [address]zjjkb[address] [place], [place] [address]Dr. Nahed Yañez MONO # 0.8 103/ul Normal 0.3-0.8 [facility] Comment on above: Performed By: #### C BC ####[facility] Byhiyzxmql[address] [place], [place] [address]Dr. Nahed Yañez Monocytes/100 WBC (Bld) 7.0 % Normal 1.7-12.0 [facility] Comment on above: Performed By: #### C BC ####[facility] Ufeeeisgdd[address] [place], [place] [address]Dr. Nahed Yañez NEUT # 9.2 103/ul Critically high 1.4-6.5 [facility] Comment on above: Performed By: #### C BC ####[facility] Kvyaeyflzs[address] [place], [place] [address]Dr. Nahed Yañez Neutrophils/100 WBC (Bld) 79.8 % Critically high 43.0-75.0 [facility] Comment on above: Performed By: #### C BC ####[facility] Eikhknumwy20[address] [place] [address]Dr. Nahed Yañez Platelet mean volume (Bld) [Entitic vol] 9.8 fL Normal 9.5-13.5 [facility] Comment on above: Performed By: #### C BC ####[facility] Sennzchelt9870 [place] [address]Dr. Nahed Yañez PLT 317 103/ul Normal 150-450 [facility] Comment on above: Performed By: #### C BC ####[facility] Yqgzozuzdr2137 [place] [address]Dr. Nahed Yañez RBC 4.11 106/ul Critically low 4.20-5.40 [facility] Comment on above: Performed By: #### C BC ####[facility] Dyqdjgpmbv6762 [place] [address]Dr. Nahed Yañez WBC 11.5 103/ul Critically high 4.0-11.0 [facility] Comment on above: Performed By: #### C BC ####[facility] [address]lfypkorb[address] [place], [place] [address]Dr. Nahed Yañez MAGNESIUMon 07-31-2022 Magnesium [Mass/Vol] 1.8 mg/dL Normal 1.8-2.4 [facility] Comment on above: Performed By: #### M JUDY Moore, CMP ####[facility] Hfvywnxwcc6718 [place] [address]Dr. Nahed Yañez POINT OF CARE GLUCOSEon -2 0-2022 Glucose [Mass/Vol] 217 mg/dL Critically high 74-106 [facility] Comment on above: Performed By: #### P OCGLUC ####[facility] Jlfoxtayjl4793 [place] [address]Dr. Nahed Yañez Glucose [Mass/Vol] 169 mg/dL Critically high 74-106 [facility] Comment on above: Performed By: #### P OCGLUC ####[facility] Bitbnrafzg4054 [place] [id number]. Nahed Yañez Glucose [Mass/Vol] 297 mg/dL Critically high 74-106 [facility] Comment on above: Performed By: #### P OCGLUC ####[facility] Yorlvctapx2690 [place] [id number]. Nahed Yañez Glucose [Mass/Vol] 233 mg/dL Critically high 74-106 [facility] Comment on above: Performed By: #### P OCGLUC ####[facility] Tzvzncwrgp4176 [place] [address]Dr. Nahed Yañez PROF 14(COMP METB)on 023 Albumin [Mass/Vol] 3.0 g/dL Critically low 3.4-5.0 [facility] Comment on above: Performed By: #### JUDY Castro, CMP ####[facility] Vdybuykyjg0129 [place] [address]Dr. Nahed Yañez Albumin/Globulin [Mass ratio] 0.8 {ratio} Normal [facility] Comment on above: Performed By: #### JUDY Castro, CMP ####[facility] Rxrubrrzup2547 [place] [address]Dr. Nahed Yañez ALP [Catalytic activity/Vol] 83 U/L Normal 46-116 [facility] Comment on above: Performed By: #### JUDY Castro, CMP ####[facility] Btenbquoao5447 [place] [address]Dr. Nahed Yañez ALT [Catalytic activity/Vol] 21 U/L Normal 14-59 [facility] Comment on above: Performed By: #### JUDY Castro, CMP ####[facility] Nxqjwclsjq3015 [place] [address]Dr. Nahed Yañez Anion gap [Moles/Vol] 14.8 mmol/L Normal [facility] Comment on above: Performed By: #### JUDY Castro, CMP ####[facility] Upucrxbcps9633 [place] [address]Dr. Nahed Yañez AST [Catalytic activity/Vol] 13 U/L Critically low 15-37 [facility] Comment on above: Performed By: #### JUDY Castro CMP ####[facility] [address]jxhqkgm[address] [place], [place] [address]Dr. Nahed Yañez Bilirubin [Mass/Vol] 0.2 mg/dL Normal 0.2-1.0 [facility] Comment on above: Performed By: #### JUDY Castro CMP ####[facility] Bacqskmdft7[address] [place], [place] [address]Dr. Nahed Yañez Calcium [Mass/Vol] 9.2 mg/dL Normal 8.5-10.1 [facility] Comment on above: Performed By: #### JUDY Castro, CMP ####[facility] Rxctaaeolj9974[address] [place], [place] [address]Dr. Nahed Yañez Chloride [Moles/Vol] 101 mmol/L Normal 98-107 [facility] Comment on above: Performed By: #### JUDY Castro, CMP ####[facility] Ngmwhosmjn01[address] [place], [place] [address]Dr. Nahed Yañez CO2 [Moles/Vol] 26.5 mmol/L Normal 21.0-32.0 [facility] Comment on above: Performed By: #### JUDY Castro, CMP ####[facility] Cbyqhshfho4[address] [place], [place] [address]Dr. Nahed Yañez Creatinine [Mass/Vol] 1.04 mg/dL Critically high 0.55-1.02 [facility] Comment on above: Performed By: #### JUDY Castro, CMP ####[facility] I[address]qplufdx26[address] [place], [place] [address]Dr. Nahed Yañez EGFR-AF SURINAMESE >60 Normal >=60 [facility] Comment on above: Performed By: #### JUDY Castro CMP ####[facility] H[address]tawuzmqf[address] [place], [place] [address]Dr. Nahed Yañez EGFR-NON AF SURINAMESE 54 mL/min/1.73m2 Critically low >=60 [facility] Comment on above: Performed By: #### JUDY Castro, CMP ####[facility] Ontfiohicz9141 [place] [address]Dr. Nahed Yañez Globulin (S) [Mass/Vol] 3.6 g/dL Normal [facility] Comment on above: Performed By: #### JUDY Castro, CMP ####[facility] Cinnptnwdx2627 [place] [address]Dr. Nahed Yañez Glucose [Mass/Vol] 171 mg/dL Critically high 74-106 [facility] Comment on above: Performed By: #### JUDY Castro, CMP ####[facility] [address]ubzlefqfy14[address] [place], [place] [address]Dr. Rosemarieashley Yañez Potassium [Moles/Vol] 3.3 mmol/L Critically low 3.5-5.1 [facility] Comment on above: Performed By: #### JUDY Castro CMP ####[facility] Jxfjyluuls[address] [place], [place] [address]Dr. Nahed Yañez Protein [Mass/Vol] 6.6 g/dL Normal 6.4-8.2 [facility] Comment on above: Performed By: #### JUDY Castro CMP ####[facility] Xxxtuybjdf[address] [place], [place] [address]Dr. Nahed Otilio Sodium [Moles/Vol] 139 mmol/L Normal 136-145 [facility] Comment on above: Performed By: #### JUDY Castro, CMP ####[facility] [address]ldvppseu[address] [place], [place] [address]Dr. Nahed Otilio Urea nitrogen [Mass/Vol] 23.0 mg/dL Critically high 7.0-18.0 [facility] Comment on above: Performed By: #### JUDY Castro, CMP ####[facility] [address]fbszdivw[address] [place], [place] [address]Dr. Rosemarieashley Otilio Urea nitrogen/Creatinine [Mass ratio] 22.1 mg/mg Normal [facility] Comment on above: Performed By: #### JUDY Castro CMP ####[facility] [address]zcrkze[address] [place], [place] [address]Dr. Nahed Yañez THEOPHYLLINEon 07-31-2022 THEOPHYLLINE 14.2 ug/mL Normal 10.0-20.0 [facility] Comment on above: Performed By: #### M JUDY Moore, [facility] ####[facility] Pgjnajhupr06[address] [place] [address]Dr. Nahed Yañez BLOOD CULTURE ID PANELon A. baumannii Not detected Normal NOT DETECTED [facility] Comment on above: Performed By: #### B CID2 ####[facility] Wltvzrvksb[address] [place] [address]Dr. Nahed Yañez Bacteriodes fragilis Not detected Normal NOT DETECTED The [facility] Comment on above: Performed By: #### B CID2 ####[facility] Mymfelzaby[address] [place], [place] [address]Dr. Nahed Yañez BCID CONTROLS PASSED Normal The [facility] Comment on above: Performed By: #### B CID2 ####[facility] Pwbxiegtlo[address] [place] [address]Dr. Rosemarieashley Otilio BCIDBTHD BLOOD CULTURE BOTTLE INFORMATION Normal The [facility] Comment on above: Performed By: #### B CID2 ####[facility] K[address]okydvk[address] [place] [address]Dr. Yiashley Yañez BCIDHD1 ANTIMICROBIAL RESISTANCE GENES Normal [facility] Comment on above: Performed By: #### B CID2 ####[facility] Yulizybfqw[address] [place] [address]Dr. Nahed Yañez BCIDHD2 SEE BELOW Normal The [facility] Comment on above: Result Comment: Note : Antimicrobial resitance can occur via multiple mechanisms. A Not Detected result for the [employer] antomicrobial resistance gene assays does not indicate antimicrobial susceptibility. Subculturing is required for species identification and susceptibility testing of isolates. Performed By: #### B CID2 ####[facility] Xsaienhoiy[address] [place], [place] [address]Dr. Nahed Yañez BCIDHD3 Positive Normal [facility] Comment on above: Performed By: #### B CID2 ####[facility] Yuunegxqmx8577[address] [place], [place] [address]Dr. Nahed Yañez BCIDHD4 Negative Normal [facility] Comment on above: Performed By: #### B CID2 ####[facility] Lspltmnlre[address] [place] [address]Dr. Nahed Yañez BCIDHD5 YEAST Normal The [facility] Comment on above: Performed By: #### B CID2 ####[facility] K[address]phlbzr[address] [place] [address]Dr. Yilan Yañez Bottle Set: Set 2 Normal The [facility] Comment on above: Performed By: #### B CID2 ####[facility] Plbkxkeogs33[address] [place], [place] [address]Dr. Nahed Yañez Bottle: Pediatric Normal [facility] Comment on above: Performed By: #### B CID2 ####[facility] Eeyloybssp13[address] [place], [place] [address]Dr. Nahed Yañez C. neoformans/gattii Not detected Normal NOT DETECTED The [facility] Comment on above: Performed By: #### B CID2 ####[facility] Fwlvrvyhhr45[address] [place], [place] [address]Dr. Yiashley Yañez Sil albicans Not detected Normal NOT DETECTED The [facility] Comment on above: Performed By: #### B CID2 ####[facility] Mfpwuyenms3435[address] [place], [place] [address]Dr. Nahed Yañez Sil auris Not detected Normal NOT DETECTED The [facility] Comment on above: Performed By: #### B CID2 ####[facility] Dwcgbjozyq4[address] [place], [place] [address]Dr. Yiashley Yañez Sil glabrata Not detected Normal NOT DETECTED The [facility] Comment on above: Performed By: #### B CID2 ####[facility] Dwnyelbwwn39[address] [place] [address]Dr. Yiashley Yañez Sil Krusei Not detected Normal NOT DETECTED The [facility] Comment on above: Performed By: #### B CID2 ####[facility] Tfmmhayrub48[address] [place] [address]Dr. Yiashley Yañez Sil Parapsilosis Not detected Normal NOT DETECTED The [facility] Comment on above: Performed By: #### B CID2 ####[facility] Sesuxqqjnu9[address] [place], [place] [address]Dr. Nahed Yañez Sil Tropicalis Not detected Normal NOT DETECTED [facility] Comment on above: Performed By: #### B CID2 ####[facility] Rzpyeqyurm58[address] [place], [place] [address]Dr. Nahed Yañez CTX-M Resistant Gene Not Applicable Normal NOT DETECTE D [facility] Comment on above: Performed By: #### B CID2 ####[facility] Mvdjjhpupt9814[address] [place], [place] [address]Dr. Nahed Yañez E. Cloacae complex Not detected Normal NOT DETECTED [facility] Comment on above: Performed By: #### B CID2 ####[facility] Vlfocagbvf029[address] [place], [place] [address]Dr. Nahed Yañez E. faecalis Not detected Normal NOT DETECTED The [facility] Comment on above: Performed By: #### B CID2 ####[facility] Tbmhbvodml638[address] [place], [place] [address]Dr. Nahed Yañez E. faecium Not detected Normal NOT DETECTED The [facility] Comment on above: Performed By: #### B CID2 ####[facility] Dwmemfimos8374[address] [place], [place] [address]Dr. Nahed Yañez Enterobacteriaceae Not detected Normal NOT DETECTED [facility] Comment on above: Performed By: #### B CID2 ####[facility] Hezxhybeei7469[address] [place], [place] [address]Dr. Nahed Yañez Escherichia coli Not detected Normal NOT DETECTED The [facility] Comment on above: Performed By: #### B CID2 ####[facility] Bltczqbeln4744[address] [place], [place] [address]Dr. Nahed Yañez H. influenzae Not detected Normal NOT DETECTED The [facility] Comment on above: Performed By: #### B CID2 ####[facility] Aypdkrzljk5396[address] [place], [place] [address]Dr. Nahed Yañez IMP Resistant Gene Not Applicable Normal NOT DETECTED The [facility] Comment on above: Performed By: #### B CID2 ####[facility] Unspzjkomc5949[address] [place], [place] [address]Dr. Nahed Yañez K. oxytoca Not detected Normal NOT DETECTED The [facility] Comment on above: Performed By: #### B CID2 ####[facility] Jnlaqiisco525[address] [place], [place] [address]Dr. Nahed Otilio K. pneumoniae Not detected Normal NOT DETECTED The [facility] Comment on above: Performed By: #### B CID2 ####[facility] Gzxbntzruk3488[address] [place], [place] [address]Dr. Nahed Otilio Klebsiella aerogenes Not detected Normal NOT DETECTED The [facility] Comment on above: Performed By: #### B CID2 ####[facility] Dmytovmwev8377[address] [place], [place] [address]Dr. Nahed Yañez KPC Resistant Gene Not detected Normal NOT DETECTED [facility] Comment on above: Performed By: #### B CID2 ####[facility] Vgikpfupkl2196[address] [place], [place] [address]Dr. Nahed Yañez List. monocytogenes Not detected Normal NOT DETECTED [facility] Comment on above: Performed By: #### B CID2 ####[facility] Lrfldwnmew7386[address] [place], [place] [address]Dr. Rosemarieashley Otilio Mcr-1 Resistant Gene Not Applicable Normal NOT DETECTE D [facility] Comment on above: Performed By: #### B CID2 ####[facility] Ovuhwjyhdx7118[address] [place], [place] [address]Dr. Rosemarielan Otilio mecA/C Not Applicable Normal NOT DETECTED [facility] Comment on above: Performed By: #### B CID2 ####[facility] Qrbxccpuvz0626[address] [place], [place] [address]Dr. Rosemarieashley Otilio mecA/C MREJ Not Applicable Normal NOT DETECTED The [facility] Comment on above: Performed By: #### B CID2 ####[facility] Oafvvuaznr5198[address] [place], [place] [address]Dr. Nahed Yañez N. meningitidis Not detected Normal NOT DETECTED The [facility] Comment on above: Performed By: #### B CID2 ####[facility] Ofjxukdcte9175[address] [place], [place] [address]Dr. Nahed Yañez NDM Resistant Gene Not Applicable Normal NOT DETECTED The [facility] Comment on above: Performed By: #### B CID2 ####[facility] Oqxdffkrnq0225[address] [place], [place] [address]Dr. Nahed Yañez Oxa-48-like Not Applicable Normal NOT DETECTED The [facility] Comment on above: Performed By: #### B CID2 ####[facility] Ulryihlwmt1378[address] [place], [place] [address]Dr. Rosemarieashley Yañez Proteus Not detected Normal NOT DETECTED The [facility] Comment on above: Performed By: #### B CID2 ####[facility] Ckgxothzvq9425[address] [place], [place] [address]Dr. Nahed Yañez Pseud. aeruginosa Not detected Normal NOT DETECTED The [facility] Comment on above: Performed By: #### B CID2 ####[facility] Yqofelbvag993[address] [place], [place] [address]Dr. Nahed Yañez S. maltophilia Not detected Normal NOT DETECTED The [facility] Comment on above: Performed By: #### B CID2 ####[facility] Doexwarmhc2657[address] [place], [place] [address]Dr. Rosemarieashley Yañez Salmonella Not detected Normal NOT DETECTED The [facility] Comment on above: Performed By: #### B CID2 ####[facility] Tcbkitxinc7759[address] [place], [place] [address]Dr. Nahed Yañez Seratia marcescens Not detected Normal NOT DETECTED [facility] Comment on above: Performed By: #### B CID2 ####[facility] Mxohwyrbfg938[address] [place], [place] [address]Dr. Nahed Yañez Site: R AC Normal The [facility] Comment on above: Performed By: #### B CID2 ####[facility] Exertmzemk6213[address] [place], [place] [address]Dr. Nahed Yañez Staph. aureus Not detected Normal NOT DETECTED The [facility] Comment on above: Performed By: #### B CID2 ####[facility] Ccfwrqtehj767[address] [place], [place] [address]Dr. Nahed Yañez Staph. epidermidis Not detected Normal NOT DETECTED [facility] Comment on above: Performed By: #### B CID2 ####[facility] Smphwlqfrc4254[address] [place], [place] [address]Dr. Nahed Yañez Staph. lugdunensis Not detected Normal NOT DETECTED [facility] Comment on above: Performed By: #### B CID2 ####[facility] Yyabzxhxcr155[address] [place], [place] [address]Dr. Nahed Yañez Staphylococcus Detected Critically abnormal NOT DETECTED The [facility] Comment on above: Performed By: #### B CID2 ####[facility] Sxhdkrpcwp5511[address] [place], [place] [address]Dr. Nahed Yañez Strep. agalactiae Not detected Normal NOT DETECTED The [facility] Comment on above: Performed By: #### B CID2 ####[facility] Aoatdcirsg6401[address] [place], [place] [address]Dr. Nahed Yañez Strep. pneumoniae Not detected Normal NOT DETECTED [facility] Comment on above: Performed By: #### B CID2 ####[facility] Kbvrrqfaoo2567[address] [place], [place] [address]Dr. Nahed Yañez Strep. pyogenes Not detected Normal NOT DETECTED The [facility] Comment on above: Performed By: #### B CID2 ####[facility] Nhilwvglnc9[address] [place], [place] [address]Dr. Nahed Yañez Streptococcus Not detected Normal NOT DETECTED The [facility] Comment on above: Performed By: #### B CID2 ####[facility] Iprexhdqns897[address] [place], [place] [address]Dr. Nahed Yañez Tucker/B Resist. Gene Not detected Normal NOT DETECTED [facility] Comment on above: Performed By: #### B CID2 ####[facility] Nbfjlkmzvg8365[address] [place], [place] [address]Dr. Nahed Yañez VIM Resistant Gene Not Applicable Normal NOT DETECTED The [facility] Comment on above: Performed By: #### B CID2 ####[facility] Iptlnukyif1290[address] [place], [place] [address]Dr. Nahed Yañez CARDIAC FRANCISCO 3-6on 3 CK [Catalytic activity/Vol] 25 U/L Critically low 26-192 The [facility] Comment on above: Performed By: #### C MREP ####[facility] Qnmyoaexfm[address] [place] [id number]. Nahed Yañez CK.MB [Mass/Vol] ng/mL Normal <=3.60 [facility] Comment on above: Performed By: #### C MREP ####[facility] Hallmwotfs[address] [place] [id number]. Nahed Yañez HSTROP 35.8 pg/mL Normal 4.0-51.3 The [facility] Comment on above: Result Comment: CUT- OFF POINTS HAVE BEEN ESTABLISHED BASED ON THE FOURTH UNIVERSAL DEFINITIONS OF MYOCARDIALINFARCTION. THE UPPER REFERENCE LIMIT (URL) OF TROPONIN, DEFINED THE 99TH PERCENTILE OFcTnI DISTRIBUTION IN A REFERENCE POPULATION, HAS BEEN CONFIRMED THE DECISION THRESHOLDFOR [place] DIAGNOSIS. Performed By: #### C MREP ####[facility] [address] [place] [address]Dr. Nahed Yañez CK [Catalytic activity/Vol] 28 U/L Normal 26-192 The [facility] Comment on above: Performed By: #### C MREP ####[facility] Nemzqjbhht32[address] [place] [id number]. Nahed Yañez CK.MB [Mass/Vol] ng/mL Normal <=3.60 [facility] Comment on above: Performed By: #### C MREP ####[facility] Uaadvxmebf3074 [place] [address]Dr. Nahed Yañez HSTROP 36.8 pg/mL Normal 4.0-51.3 The [facility] Comment on above: Result Comment: CUT- OFF POINTS HAVE BEEN ESTABLISHED BASED ON THE FOURTH UNIVERSAL DEFINITIONS OF MYOCARDIALINFARCTION. THE UPPER REFERENCE LIMIT (URL) OF TROPONIN, DEFINED THE 99TH PERCENTILE OFcTnI DISTRIBUTION IN A REFERENCE POPULATION, HAS BEEN CONFIRMED THE DECISION THRESHOLDFOR [place] DIAGNOSIS. Performed By: #### C MREP ####[facility] Ctzltgkvou[address] [place] [address]Dr. Nahed Yañez CBC AUTO DIFFon 07-30-2022 BASO # 0.0 103/ul Normal 0.0-0.1 The [facility] Comment on above: Performed By: #### C BC ####[facility] Vtpnnnvnfg[address]74 [place] [id number]. Nahed Yañez Basophils/100 WBC (Bld) 0.1 % Critically low 0.2-2.0 The [facility] Comment on above: Performed By: #### C BC ####[facility] Dnufjtyczz[address] [place] [id number]. Nahed Yañez EO # 0.0 103/ul Normal 0.0-0.7 The [facility] Comment on above: Performed By: #### C BC ####[facility] Jffoeoozvl0587 [place] [address]Dr. Nahed Yañez Eosinophils/100 WBC (Bld) 0.0 % Critically low 0.9-7.0 [facility] Comment on above: Performed By: #### C BC ####[facility] Viayhrkqxl8367[address] [place], [place] [address]Dr. Nahed Yañez Erythrocyte distribution width (RBC) [Ratio] 14.4 % Normal 11.0-15.0 [facility] Comment on above: Performed By: #### C BC ####[facility] Yvmcuspnpn68[address] [place], [place] [address]Dr. Nahed Yañez Hematocrit (Bld) [Volume fraction] 37.7 % Normal 36.0-48.0 [facility] Comment on above: Performed By: #### C BC ####[facility] Aubkngnfpl[address] [place], [place] [address]Dr. Nahed Yañez Hemoglobin (Bld) [Mass/Vol] 12.1 g/dL Normal 12.0-16.0 The [facility] Comment on above: Performed By: #### C BC ####[facility] Xpiaxtmues[address] [place], [place] [address]Dr. Nahed Yañez IG # 0.07 10e3/ul Critically high 0.00-0.03 [facility] Comment on above: Performed By: #### C BC ####[facility] Ehqykzbkqn9[address] [place], [place] [address]Dr. Nahed Yañez IG % 0.5 % Normal 0.0-0.5 The [facility] Comment on above: Performed By: #### C BC ####[facility] Ksitvueqkr2452 [place] [id number]. Nahed Yañez LYMPH # 1.0 103/ul Critically low 1.2-3.[address] [facility] Comment on above: Performed By: #### C BC ####[facility] Fxtawexvrj58[address] [place] [id number]. Nahed Yañez Lymphocytes/100 WBC (Bld) 7.6 % Critically low 20.5-60.0 [facility] Comment on above: Performed By: #### C BC ####[facility] Wuloyejkeq87[address] [place] [id number]. Nahed Yañez MANUAL DIFF REQ NO Normal [facility] Comment on above: Performed By: #### C BC ####[facility] Pbxttrbjcw8090 [place] [phone]. Nahed Yañez MCH (RBC) [Entitic mass] 28.8 pg Normal 26.7-34.0 [facility] Comment on above: Performed By: #### C BC ####[facility] Nakkzxyjfg77[address] [place] [phone]. Nahed Yañez MCHC (RBC) [Mass/Vol] 32.1 g/dL Normal 29.9-35.2 [facility] Comment on above: Performed By: #### C BC ####[facility] Wugiccbwbt8186 [place] [phone] Yañez MCV (RBC) [Entitic vol] 89.8 fL Normal 81.0-99.0 [facility] Comment on above: Performed By: #### C BC ####[facility] Hyqlmvgdrr99[address] [place] [id number] Yañez MONO # 0.2 103/ul Critically low 0.3-0.8 [facility] Comment on above: Performed By: #### C BC ####[facility] Ktztczdsjg9271 [place] [id number]. Nahed Yañez Monocytes/100 WBC (Bld) 1.5 % Critically low 1.7-12.0 [facility] Comment on above: Performed By: #### C BC ####[facility] Wudirqzzfc7387 [place] [id number]. Nahed Yañez NEUT # 11.7 103/ul Critically high 1.4-6.5 [facility] Comment on above: Performed By: #### C BC ####[facility] Erbvyzcqdr7618 [place] [phone]. Nahed Yañez Neutrophils/100 WBC (Bld) 90.3 % Critically high 43.0-75.0 [facility] Comment on above: Performed By: #### C BC ####[facility] Jfdstmvcpm7198 [place] [phone]. Nahed Yañez Platelet mean volume (Bld) [Entitic vol] 9.9 fL Normal 9.5-13.5 [facility] Comment on above: Performed By: #### C BC ####[facility] Cwkbidwkgl023[address] [place] [address]Dr. Nahed Yañez PLT 319 103/ul Normal 150-450 [facility] Comment on above: Performed By: #### C BC ####[facility] Gupxcpcezd[address] [place], [place] [address]Dr. Nahed Yañez RBC 4.20 106/ul Normal 4.20-5.40 [facility] Comment on above: Performed By: #### C BC ####[facility] Tafkpynszl[address] [place], [place] [address]Dr. Nahed Yañez WBC 13.0 103/ul Critically high 4.0-11.0 [facility] Comment on above: Performed By: #### C BC ####[facility] Twgclyraay[address] [place] [phone]. Nahed Yañez CULTURE BLOODon 07-30-2022 Microscopic examination of blood, culture Culture Observations: NO GROWTH AT 5 DAYS. Normal The [facility] Comment on above: Performed By: #### B LDCX1 ####[facility] Zkmcjdwrsk04[address] [place] [phone]. Nahed Yañez CULTURE SPUTUMon 07-30-2022 CULTURE SPUTUM Culture Observations : NORMAL RESPIRATORY MIGUEL. Normal The [facility] Comment on above: Performed By: #### S PUTCX ####[facility] Ulkpmbpwrm38[address] [place] [address]Dr. Nahed Yañez CULTURE URINEon 07-30-2022 CULTURE URINE Culture Observations : MODERATE GROWTH OF MIXED GENITAL MIGUEL. NO POTENTIAL PATHOGENS SEEN. Normal The [facility] Comment on above: Performed By: #### U RCX ####[facility] Dhkrvqknsl67[address] [place] [address]Dr. Nahed Yañez Covid-19 PCR (CVDTB)on 07-12 SARS-CoV-2 (COVID-19) RNA MIRNA+probe Ql (Unsp spec) Not detected Normal NOT DETECTED The [facility] Comment on above: Result Comment: When [...] for this test is supported by the [employer] of Health and Human Service's declaration that [...] be used). Performed By: #### C VDTBH ####[facility] Qxgtechwwh9875 [place] [phone]. Nahed Yañez ER URINE PROFILEon 3 Bilirubin Ql (U) Negative Normal NEGATIVE [facility] Comment on above: Performed By: #### E YARELIS ALCARAZ ####[facility] Apaxbhkxlq0728 [place] [phone]. Nahed Yañez Clarity (U) CLEAR Normal CLEAR The [facility] Comment on above: Performed By: #### E YARELIS ALCARAZ ####[facility] Prqlctiinj86[address] [place] [address]Dr. Nahed Yañez Color (U) LT. YELLOW Normal YELLOW The [facility] Comment on above: Performed By: #### NUNU DOVERO ####[facility] Mkhwmmhfcv26[address] [place] [address]Dr. Nahed Yañez ERUAHD A micrscopic examination will be performed if indicated. Normal The [facility] Comment on above: Performed By: #### NUNU DOVERO ####[facility] Kjksdxwvzx2950 [place] [address]Dr. Nahed Yañez Glucose Ql (U) 500 mg/dl Abnormal NEGATIVE The [facility] Comment on above: Performed By: #### NUNU DOVERO ####[facility] Okcjakbxyq7801[address] [place], [place] [address]Dr. Nahed Yañez Hemoglobin Ql (U) Negative Normal NEGATIVE The [facility] Comment on above: Performed By: #### NUNU DOVERO ####[facility] Iafxiotuqj28[address] [place], [place] [address]Dr. Nahed Yañez Ketones Ql (U) Negative Normal NEGATIVE The [facility] Comment on above: Performed By: #### YARELIS DOVE ####[facility] Vhxvphyoqo34[address] [place], [place] [address]Dr. Nahed Yañez LEUKOCYTES TRACE Abnormal NEGATIVE The [facility] Comment on above: Performed By: #### NUNU DOVERO ####[facility] Rxfdsfgpap686[address] [place], [place] [address]Dr. Nahed Yañez Nitrite Ql (U) Negative Normal NEGATIVE The [facility] Comment on above: Performed By: #### NUNU DOVERO ####[facility] Mxhsjdvhde036[address] [place], [place] [address]Dr. Nahed Yañez pH (U) 6.0 [pH] Normal 5-9 The [facility] Comment on above: Performed By: #### YARELIS DOVE ####[facility] [address]ikbcrjwq22[address] [place], [place] [address]Dr. Nahed Yañez SPEC GRAVITY >=1.030 Abnormal 1.005-<=1.02 5 [facility] Comment on above: Performed By: #### YARELIS DOVE ####[facility] Zilidixhxb9[address] [place], [place] [address]Dr. Nahed Yañez UA PROTEIN Negative Normal NEGATIVE/ TRACE The [facility] Comment on above: Performed By: #### YARELIS DOVE ####[facility] G[address]jusqjul15[address] [place], [place] [address]Dr. Nahed Yañez UR MICRO IND INDICATED Normal [facility] Comment on above: Performed By: #### YARELIS DOVE ####[facility] Re[address]xywveey25[address] [place], [place] [address]Dr. Nahed Yañez Urobilinogen Qn (U) 0.2 {Alem'U}/dL Normal 0.2 - 1. 0 [facility] Comment on above: Performed By: #### YARELIS DOVE ####[facility] Bkbenuxlip88[address] [place], [place] [address]Dr. Nahed Yañez INFLUENZA A AND B AGon 07-30 INFLUANEGH SEE BELOW Normal [facility] Comment on above: Result Comment: Nega tive for Flu A protein angiten. Infection due to Flu A cannot be ruled out. Flu A angiten in the sample may be below the detection limit of the test. Performed By: #### I NFLUAB ####[facility] Vscguisvlf4[address] [place], [place] [address]Dr. Nahed Yañez INFLUBNEGH SEE BELOW Normal [facility] Comment on above: Result Comment: Nega tive for Flu B protein antigen. Infection due to Flu B cannot be ruled out. Flu B antigen in the sample may be below the detection limit of the test. Performed By: #### I NFLUAB ####[facility] Tdnrllbdds6[address] [place], [place] [address]Dr. Nahed Yañez INFLUENZA A AG Negative Normal NEGATIVE SEE COMMENT [facility] Comment on above: Performed By: #### I NFLUAB ####[facility] Wsvysjanro3[address] [place], [place] [address]Dr. Nahed Yañez INFLUENZA B AG Negative Normal NEGATIVE SEE COMMENT [facility] Comment on above: Performed By: #### I NFLUAB ####[facility] Jvougcjvjg[address] [place], [place] [address]Dr. Nahed Yañez LACTATE/LACTIC ACIDon 2022 Lactate [Moles/Vol] 2.5 mmol/L Critically high 0.4-2.0 [facility] Comment on above: Performed By: #### L ACT ####[facility] Mykluyryie[address] [place], [place] [address]Dr. Nahed Yañez Lactate [Moles/Vol] 3.3 mmol/L Critically high 0.4-2.0 [facility] Comment on above: Performed By: #### L ACT ####[facility] Lwdtsffwag97[address] [place], [place] [address]Dr. Nahed Yañez Lactate [Moles/Vol] 2.7 mmol/L Critically high 0.4-2.0 [facility] Comment on above: Performed By: #### L ACT ####[facility] F[address]xkxmwwah[address] [place], [place] [address]Dr. Nahed Yañez Lactate [Moles/Vol] 2.8 mmol/L Critically high 0.4-2.0 [facility] Comment on above: Performed By: #### L ACT ####[facility] Ofrajlgbum[address] [place], [place] [address]Dr. Nahed Yañez MAGNESIUMon 07-30-2022 Magnesium [Mass/Vol] 1.9 mg/dL Normal 1.8-2.4 [facility] Comment on above: Performed By: #### M G, CMP ####[facility] Vtpzkfasyp[address] [place], [place] [address]Dr. Nahed Yañez POINT OF CARE GLUCOSEon 07-12 Glucose [Mass/Vol] 220 mg/dL Critically high -106 [facility] Comment on above: Performed By: #### P OCGLUC ####[facility] Hsconsdadv8[address] [place], [place] [address]Dr. Nahed Yañez Glucose [Mass/Vol] 162 mg/dL Critically high 74-106 [facility] Comment on above: Result Comment: Kaycee clemons Meter Performed By: #### P OCGLUC ####[facility] [address]vrefmwulh[address] [place] [address]Dr. Nahed Yaeñz PROF 14(COMP METB)on 023 Albumin [Mass/Vol] 2.9 g/dL Critically low 3.4-5.0 [facility] Comment on above: Performed By: #### Pablo Moore, CMP ####[facility] Fhskzkmqis[address] [place], [place] [address]Dr. Nahed Yañez Albumin/Globulin [Mass ratio] 0.8 {ratio} Normal [facility] Comment on above: Performed By: #### Pablo Moore, CMP ####[facility] Lkxyobrbtg9865[address] [place], [place] [address]Dr. Nahed Yañez ALP [Catalytic activity/Vol] 94 U/L Normal 46-116 [facility] Comment on above: Performed By: #### Pablo Moore, CMP ####[facility] Egwvpbdqfe9469[address] [place], [place] [address]Dr. Nahed Yañez ALT [Catalytic activity/Vol] 22 U/L Normal 14-59 [facility] Comment on above: Performed By: #### Pablo Moore, CMP ####[facility] Fhdyvkaahg[address] [place], [place] [address]Dr. Nahed Yañez Anion gap [Moles/Vol] 12.4 mmol/L Normal [facility] Comment on above: Performed By: #### Pablo Moore, CMP ####[facility] Qmoxxnehpd5787[address] [place], [place] [address]Dr. Nahed Yañez AST [Catalytic activity/Vol] 18 U/L Normal 15-37 [facility] Comment on above: Performed By: #### Pablo Moore, CMP ####[facility] Tphedffusa77[address] [place], [place] [address]Dr. Nahed Yañez Bilirubin [Mass/Vol] 0.1 mg/dL Critically low 0.2-1.0 [facility] Comment on above: Performed By: #### Pablo Moore, CMP ####[facility] Pbmfcjcjkn7815[address] [place], [place] [address]Dr. Nahed Yañez Calcium [Mass/Vol] 8.9 mg/dL Normal 8.5-10.1 [facility] Comment on above: Performed By: #### M Teresa, CMP ####[facility] Xtf[address]rjpbe[address] [place] [address]Dr. Nahed Yañez Chloride [Moles/Vol] 99 mmol/L Normal 98-107 [facility] Comment on above: Performed By: #### M G, CMP ####[facility] Qwduqnoito60[address] [place] [address]Dr. Nahed Yañez CO2 [Moles/Vol] 26.0 mmol/L Normal 21.0-32.0 [facility] Comment on above: Performed By: #### Pablo Moore, CMP ####[facility] Jhwywrywub7933[address] [place], [place] [address]Dr. Nahed Yañez Creatinine [Mass/Vol] 1.16 mg/dL Critically high 0.55-1.02 [facility] Comment on above: Performed By: #### Pablo Moore, CMP ####[facility] Sggntatpzj3650[address] [place], [place] [address]Dr. Nahed Otilio EGFR-AF SURINAMESE 58 mL/min/1.73m2 Critically low >=60 [facility] Comment on above: Performed By: #### Pablo Moore, CMP ####[facility] Ovgbtywxyg8[address] [place], [place] [address]Dr. Nahed Otilio EGFR-NON AF SURINAMESE 47 mL/min/1.73m2 Critically low >=60 [facility] Comment on above: Performed By: #### Pablo Moore, CMP ####[facility] Vwbdkhmkxg3985 [place] [address]Dr. Nahed Otilio Globulin (S) [Mass/Vol] 3.7 g/dL Normal [facility] Comment on above: Performed By: #### Pablo Moore, CMP ####[facility] Ykqfnkpikh4167 [place] [address]Dr. Nahed Yañez Glucose [Mass/Vol] 267 mg/dL Critically high 74-106 [facility] Comment on above: Performed By: #### Pablo Moore, CMP ####[facility] Bxiyncqppq0315 [place] [address]Dr. Nahed Yañez Potassium [Moles/Vol] 4.4 mmol/L Normal 3.5-5.1 [facility] Comment on above: Performed By: #### Pablo G, CMP ####[facility] Pqljjtfqcg0129[address] [place], [place] [address]Dr. Nahed Yañez Protein [Mass/Vol] 6.6 g/dL Normal 6.4-8.2 [facility] Comment on above: Performed By: #### Pablo Moore, CMP ####[facility] Cvylxqhagq35[address] [place] [address]Dr. Nahed Yañez Sodium [Moles/Vol] 133 mmol/L Critically low 136-145 [facility] Comment on above: Performed By: #### Pablo Moore, CMP ####[facility] Chzbodfgnf8878[address] [place], [place] [address]Dr. Nahed Yañez Urea nitrogen [Mass/Vol] 33.0 mg/dL Critically high 7.0-18.0 [facility] Comment on above: Performed By: #### Pablo Moore, CMP ####[facility] Upmepahrgh[address] [place], [place] [address]Dr. Nahed Yañez Urea nitrogen/Creatinine [Mass ratio] 28.4 mg/mg Normal [facility] Comment on above: Performed By: #### Pablo Moore, CMP ####[facility] Bdzxxacwoi5560[address] [place], [place] [address]Dr. Nahed Yañez SPUTUM GRAM STAINon 07-31-19 COMMENTS Normal [facility] Comment on above: Performed By: #### S PUTGS ####[facility] Xlbvjgfccm[address] [place], [place] [address]Dr. Nahed Yañez DIPHTHEROIDS Normal [facility] Comment on above: Performed By: #### S PUTGS ####[facility] Bvhjuoldux7720[address] [place], [place] [address]Dr. Nahed Yañez EPITHELIALS <25 Normal [facility] Comment on above: Performed By: #### S PUTGS ####[facility] Zgyqtixxao0[address] [place], [place] [address]Dr. Nahed Yañez FUNGAL ELEMENTS Normal [facility] Comment on above: Performed By: #### S PUTGS ####[facility] Axgiszfdrr30[address] [place] [address]Dr. Nahed Yañez GRAM NEG BACILLI Normal [facility] Comment on above: Performed By: #### S PUTGS ####[facility] Ndjaaxrahz33[address] [place] [address]Dr. Nahed Yañez GRAM NEG DIPPLOCOCCI Normal [facility] Comment on above: Performed By: #### S PUTGS ####[facility] Chnplzqsll95[address] [place] [address]Dr. Nahed Yañez GRAM POS BACILLI FEW Normal [facility] Comment on above: Performed By: #### S PUTGS ####[facility] Ejccybpxtb04[address] [place] [address]Dr. Nahed Yañez GRAM POSITIVE COCCI FEW Normal The [facility] Comment on above: Performed By: #### S PUTGS ####[facility] Rawctsdeas1694[address] [place], [place] [address]Dr. Nahed Yañez WBC (Bld) [#/Vol] 10*3/uL Normal The [facility] Comment on above: Performed By: #### S PUTGS ####[facility] Gyixqhxkma13[address] [place], [place] [address]Dr. Nahed Yañez URINE MICROSCOPIC ONLYon BACTERIA SMALL Abnormal NONE SEEN [facility] Comment on above: Performed By: #### YARELIS DOVE ####[facility] I[address]rwr[address]fbu[address] [place] [address]Dr. Nahed Yañez Bacteria identified Cx Nom (U) INDICATED Normal [facility] Comment on above: Performed By: #### NUNU DOVERO ####[facility] [address]ubsyltj[address] [place] [address]Dr. Nahed Yañez CAST NONE SEEN Normal NONE SEEN [facility] Comment on above: Performed By: #### NUNU DOVERO ####[facility] Gsgdoekwyl[address] [place] [address]Dr. Nahed Yañez Crystals LM Nom (Urine sed) NONE SEEN Normal NONE SEEN [facility] Comment on above: Performed By: #### Isidoro ALCARAZ UMICRO ####[facility] Bxdjqfwtqs1924 [place] [address]Dr. Nahed Yañez Epithelial cells LM Ql (Urine sed) FEW Abnormal NONE SEEN /RARE [facility] Comment on above: Performed By: #### Isidoro ALCARAZ UMICRO ####[facility] Z[address]ckpc[address] [place] [id number]. Nahed Yañez MUCOUS TRACE Abnormal NONE SEEN [facility] Comment on above: Performed By: #### Isidoro ALCARAZ UMICRO ####[facility] Ubcnkrdqrt5[address] [place] [id number]. Nahed Yañez RBC 0-2 Normal 0-2 [facility] Comment on above: Performed By: #### Isidoro ALCARAZ UMICRO ####[facility] Nzhaduaulx9439 [place] [address]Dr. Nahed Yañez WBC 0-2 Abnormal NONE SEEN [facility] Comment on above: Performed By: #### Isidoro ALCARAZ UMICRO ####[facility] Wlfvfqnpnz1433 [place] [address]Dr. Nahed Yañez XR CHEST 1 Von 07-30-2022 XR CHEST 1 V Normal [facility] CARDIAC FRANCISCO ADMITon 023 CK [Catalytic activity/Vol] 59 U/L Normal 26-192 [facility] Comment on above: Performed By: #### BLADIMIR SINGH ####[facility] Tadvihhcwc7808 [place] [address]Dr. Nahed Yañez CK.MB [Mass/Vol] 0.59 ng/mL Normal <=3.60 [facility] Comment on above: Performed By: #### BLADIMIR SINGH ####[facility] Jqpogmlcjh7[address] [place], [place] [address]Dr. Nahed Yañez HSTROP 40.7 pg/mL Normal 4.0-51.3 [facility] Comment on above: Result Comment: CUT- OFF POINTS HAVE BEEN ESTABLISHED BASED ON THE FOURTH UNIVERSAL DEFINITIONS OF MYOCARDIALINFARCTION. THE UPPER REFERENCE LIMIT (URL) OF TROPONIN, DEFINED THE 99TH PERCENTILE OFcTnI DISTRIBUTION IN A REFERENCE POPULATION, HAS BEEN CONFIRMED THE DECISION THRESHOLDFOR MN DIAGNOSIS. Performed By: #### C BLADIMIR AGRAWAL ####[facility] Kcprjiqzsc67[address] [place] [address]Dr. Nahed Yañez ADNRE 89 ng/mL Critically high 9-82 The [facility] Comment on above: Performed By: #### C BLADIMIR AGRAWAL ####[facility] Tbkmxvybzg2059 [place] [address]Dr. Nahed Otilio CBC AUTO DIFFon 07-29-2022 BASO # 0.0 103/ul Normal 0.0-0.1 [facility] Comment on above: Performed By: #### C BC ####[facility] Sjelgrazyh[address] [place], [place] [address]Dr. Nahed Yañez Basophils/100 WBC (Bld) 0.1 % Critically low 0.2-2.0 [facility] Comment on above: Performed By: #### C BC ####[facility] Ntkenqnmfn[address] [place], [place] [address]Dr. Nahed Otilio EO # 0.0 103/ul Normal 0.0-0.7 [facility] Comment on above: Performed By: #### C BC ####[facility] V[address]plttkjqd023[address] [place], [place] [address]Dr. Nahed Yañez Eosinophils/100 WBC (Bld) 0.0 % Critically low 0.9-7.0 [facility] Comment on above: Performed By: #### C BC ####[facility] Uuqrkexbss22[address] [place], [place] [address]Dr. Nahed Yañez Erythrocyte distribution width (RBC) [Ratio] 14.5 % Normal 11.0-15.0 [facility] Comment on above: Performed By: #### C BC ####[facility] Naxpynispp30[address] [place], [place] [address]Dr. Rosemarieashley Otilio Hematocrit (Bld) [Volume fraction] 42.1 % Normal 36.0-48.0 [facility] Comment on above: Performed By: #### C BC ####[facility] [address] [place] [address]Am. Nahed Yañez Hemoglobin (Bld) [Mass/Vol] 13.4 g/dL Normal 12.0-16.0 [facility] Comment on above: Performed By: #### C BC ####[facility] Xloyuwmxmh224[address] [place] [address]Dr. Nahed Yañez IG # 0.07 10e3/ul Critically high 0.00-0.03 The [facility] Comment on above: Performed By: #### C BC ####[facility] Iqzcozkfjb9424 [place] [address]Dr. Nahed Otilio IG % 0.5 % Normal 0.0-0.5 [facility] Comment on above: Performed By: #### C BC ####[facility] Aqaorsslui2220 [place] [address]Dr. Rosemarieashley Otilio LYMPH # 3.2 103/ul Normal 1.2-3.8 [facility] Comment on above: Performed By: #### C BC ####[facility] Enpcqcrqhw364[address] [place], [place] [address]Dr. Nahed Otilio Lymphocytes/100 WBC (Bld) 21.2 % Normal 20.5-60.0 [facility] Comment on above: Performed By: #### C BC ####[facility] Tlqpgqvdww8763 [place] [address]Dr. Nahed Otilio MANUAL DIFF REQ NO Normal [facility] Comment on above: Performed By: #### C BC ####[facility] Fvjyjhhhtv5143 [place] [address]Dr. Nahed Yañez MCH (RBC) [Entitic mass] 28.1 pg Normal 26.7-34.0 [facility] Comment on above: Performed By: #### C BC ####[facility] Urkzoqsscu69[address] [place], [place] [address]Dr. Nahed Otilio MCHC (RBC) [Mass/Vol] 31.8 g/dL Normal 29.9-35.2 [facility] Comment on above: Performed By: #### C BC ####[facility] Qxhnwshlpr0230[address] [place], [place] [address]Dr. Nahed Otilio MCV (RBC) [Entitic vol] 88.3 fL Normal 81.0-99.0 [facility] Comment on above: Performed By: #### C BC ####[facility] Rcetyhjtaw3[address] [place] [address]Dr. Nahed Yañez MONO # 1.0 103/ul Critically high 0.3-0.8 The [facility] Comment on above: Performed By: #### C BC ####[facility] Lsvcgbirmf5231 [place] [address]Dr. Nahed Yañez Monocytes/100 WBC (Bld) 6.3 % Normal 1.7-12.0 [facility] Comment on above: Performed By: #### C BC ####[facility] L[address]mhxprxo28[address] [place], [place] [address]Dr. Nahed Otilio NEUT # 11.0 103/ul Critically high 1.4-6.5 The [facility] Comment on above: Performed By: #### C BC ####[facility] Amzczecgif1315[address] [place], [place] [address]Dr. Rosemarieashley Yañez Neutrophils/100 WBC (Bld) 71.9 % Normal 43.0-75.0 [facility] Comment on above: Performed By: #### C BC ####[facility] G[address]afualbju14[address] [place], [place] [address]Dr. Rosemarieashley Yañez Platelet mean volume (Bld) [Entitic vol] 9.9 fL Normal 9.5-13.5 [facility] Comment on above: Performed By: #### C BC ####[facility] Tabztlwrdj2235[address] [place], [place] [address]Dr. Rosemarieashley Otilio PLT 385 103/ul Normal 150-450 [facility] Comment on above: Performed By: #### C BC ####[facility] Gbzmfagfqv[address] [place], [place] [address]Dr. Nahed Yañez RBC 4.77 106/ul Normal 4.20-5.40 [facility] Comment on above: Performed By: #### C BC ####[facility] Pktjkovrdd[address] [place], [place] [address]Dr. Nahed Yañez WBC 15.3 103/ul Critically high 4.0-11.0 The [facility] Comment on above: Performed By: #### C BC ####[facility] Qokdjxlssy3534 [place] [address]Dr. Nahed Yañez PROF CHEM 8 (BAS METB)on Anion gap [Moles/Vol] 13.4 mmol/L Normal [facility] Comment on above: Performed By: #### C NGHIA, BMP ####[facility] Dicfrbxixz3987 [place] [address]Dr. Nahed Yañez Calcium [Mass/Vol] 9.5 mg/dL Normal 8.5-10.1 The [facility] Comment on above: Performed By: #### C NGHIA, BMP ####[facility] Beznursenv5390[address] [place], [place] [address]Dr. Nahed Yañez Chloride [Moles/Vol] 101 mmol/L Normal 98-107 [facility] Comment on above: Performed By: #### Isabell AGRAWAL, BMP ####[facility] Ueoryjyhgh[address] [place], [place] [address]Dr. Nahed Yañez CO2 [Moles/Vol] 27.9 mmol/L Normal 21.0-32.0 [facility] Comment on above: Performed By: #### Isabell AGRAWAL, BMP ####[facility] Pyarjrkefd0399[address] [place], [place] [address]Dr. Nahed Yañez Creatinine [Mass/Vol] 0.91 mg/dL Normal 0.55-1.02 [facility] Comment on above: Performed By: #### Isabell AGRAWAL, BMP ####[facility] Urallhubjw89[address] [place] [address]Dr. Nahed Otilio EGFR-AF SURINAMESE >60 Normal >=60 The [facility] Comment on above: Performed By: #### C NGHIA, BMP ####[facility] Ozukibheut[address] [place] [address]Dr. Rosemarieashley Otilio EGFR-NON AF SURINAMESE >60 Normal >=60 [facility] Comment on above: Performed By: #### Isabell AGRAWAL, BMP ####[facility] Jeulyxrlos4487 [place] [address]Dr. Nahed Yañez Glucose [Mass/Vol] 100 mg/dL Normal 74-106 The [facility] Comment on above: Performed By: #### C NGHIA, BMP ####[facility] Abvultwqww423[address] [place], [place] [address]Dr. Nahed Yañez Potassium [Moles/Vol] 4.3 mmol/L Normal 3.5-5.1 [facility] Comment on above: Result Comment: samp le slightly hemolized Performed By: #### C NGHIA, BMP ####[facility] Rmgvnvnoil3687[address] [place], [place] [address]Dr. Nahed Yañez Sodium [Moles/Vol] 138 mmol/L Normal 136-145 The [facility] Comment on above: Performed By: #### C NGHIA, BMP ####[facility] Ltzwmxfobl299[address] [place], [place] [address]Dr. Nahed Yañez Urea nitrogen [Mass/Vol] 34.0 mg/dL Critically high 7.0-18.0 The [facility] Comment on above: Performed By: #### C NGHIA, BMP ####[facility] Wrivpsittm8179[address] [place], [place] [address]Dr. Nahed Yañez Urea nitrogen/Creatinine [Mass ratio] 37.4 mg/mg Normal [facility] Comment on above: Performed By: #### C NGHIA, BMP ####[facility] Trxvbuolgj0624[address] [place], [place] [address]Dr. Nahed Yañez BNPon 07-28-2022 Natriuretic peptide B (Bld) [Mass/Vol] 249.0 pg/mL Normal <=900.0 The [facility] Comment on above: Performed By: #### B SEWER PIPE CLEANER ####[facility] Ixyllazfuy27[address] [place], [place] [address]Dr. Nahed Yañez CBC AUTO DIFFon 07-28-2022 BASO # 0.0 103/ul Normal 0.0-0.1 [facility] Comment on above: Performed By: #### C BC ####[facility] Mryrcbsowu5199[address] [place], [place] [address]Dr. Nahed Yañez Basophils/100 WBC (Bld) 0.1 % Critically low 0.2-2.0 [facility] Comment on above: Performed By: #### C BC ####[facility] Jetxbsckzg7850 [place] [address]Dr. Nahed Yañez EO # 0.0 103/ul Normal 0.0-0.7 [facility] Comment on above: Performed By: #### C BC ####[facility] Fkpprprddt5332[address] [place], [place] [address]Dr. Nahed Yañez Eosinophils/100 WBC (Bld) 0.0 % Critically low 0.9-7.0 [facility] Comment on above: Performed By: #### C BC ####[facility] P[address]ryoqnybb9[address] [place], [place] [address]Dr. Nahed Yañez Erythrocyte distribution width (RBC) [Ratio] 14.3 % Normal 11.0-15.0 [facility] Comment on above: Performed By: #### C BC ####[facility] Revavptvtq9058[address] [place], [place] [address]Dr. Nahed Yañez Hematocrit (Bld) [Volume fraction] 38.7 % Normal 36.0-48.0 [facility] Comment on above: Performed By: #### C BC ####[facility] Dbykoufixw12[address] [place], [place] [address]Dr. Nahed Yañez Hemoglobin (Bld) [Mass/Vol] 12.2 g/dL Normal 12.0-16.0 [facility] Comment on above: Performed By: #### C BC ####[facility] Epkklzbmqr7367[address] [place], [place] [address]Dr. Nahed Yañez IG # 0.06 10e3/ul Critically high 0.00-0.03 The [facility] Comment on above: Performed By: #### C BC ####[facility] Lqjcakehbi66[address] [place], [place] [address]Dr. Nahed Yañez IG % 0.5 % Normal 0.0-0.5 [facility] Comment on above: Performed By: #### C BC ####[facility] U[address]ht[address] [place], [place] [id number]. Rosemarieashley Yañez LYMPH # 0.7 103/ul Critically low 1.2-3.[address] [facility] Comment on above: Performed By: #### C BC ####[facility] Bxmyveaxdo[address] [place] [address]Dr. Nahed Otilio Lymphocytes/100 WBC (Bld) 5.7 % Critically low 20.5-60.0 [facility] Comment on above: Performed By: #### C BC ####[facility] Hqqlaemkgf14[address] [place] [address]Dr. Rosemarieashley Yañez MANUAL DIFF REQ NO Normal [facility] Comment on above: Performed By: #### C BC ####[facility] Zzydjvhllj2675 [place] [address]Dr. Nahed Otilio MCH (RBC) [Entitic mass] 28.2 pg Normal 26.7-34.0 [facility] Comment on above: Performed By: #### C BC ####[facility] T[address]tlwsql[address] [place], [place] [address]Dr. Nahed Otilio MCHC (RBC) [Mass/Vol] 31.5 g/dL Normal 29.9-35.2 [facility] Comment on above: Performed By: #### C BC ####[facility] Eflkstfvzq7254 [place] [address]Dr. Nahed Yañez MCV (RBC) [Entitic vol] 89.6 fL Normal 81.0-99.0 [facility] Comment on above: Performed By: #### C BC ####[facility] [address] [place], [place] [address]Dr. Nahed Yañez MONO # 0.3 103/ul Normal 0.3-0.8 [facility] Comment on above: Performed By: #### C BC ####[facility] Uojfgssked[address] [place], [place] [address]Dr. Nahed Yañez Monocytes/100 WBC (Bld) 2.2 % Normal 1.7-12.0 [facility] Comment on above: Performed By: #### C BC ####[facility] Vqqymlbkhi[address] [place], [place] [address]Dr. Nahed Yañez NEUT # 11.1 103/ul Critically high 1.4-6.5 [facility] Comment on above: Performed By: #### C BC ####[facility] [address] [place] [address]Dr. Nahed Yañez Neutrophils/100 WBC (Bld) 91.5 % Critically high 43.0-75.0 [facility] Comment on above: Performed By: #### C BC ####[facility] Aptugeztpk[address]66 [place] [address]Dr. Nahed Yañez Platelet mean volume (Bld) [Entitic vol] 10.1 fL Normal 9.5-13.5 [facility] Comment on above: Performed By: #### C BC ####[facility] Erciemjycm[address] [place] [address]Dr. Nahed Yañez PLT 323 103/ul Normal 150-450 [facility] Comment on above: Performed By: #### C BC ####[facility] Hrlabiqola0266 [place] [address]Dr. Nahed Yañez RBC 4.32 106/ul Normal 4.20-5.40 [facility] Comment on above: Performed By: #### C BC ####[facility] Uxqtagpgam5[address] [place] [address]Dr. Nahed Yañez WBC 12.1 103/ul Critically high 4.0-11.0 [facility] Comment on above: Performed By: #### C BC ####[facility] Fvbmuramqd4372 [place] [address]Dr. Nahed Yañez POINT OF CARE GLUCOSEon 03- Glucose [Mass/Vol] 308 mg/dL Critically high 74-106 [facility] Comment on above: Performed By: #### P OCGLUC ####[facility] Zicycsixro[address] [place], [place] [address]Dr. Nahed Yañez Glucose [Mass/Vol] 341 mg/dL Critically high 74-106 [facility] Comment on above: Performed By: #### P OCGLUC ####[facility] Onwqxfhjqk[address] [place], [place] [address]Dr. Nahed Yañez Glucose [Mass/Vol] 320 mg/dL Critically high 74-106 T [facility] Comment on above: Performed By: #### P OCGLUC ####[facility] Wxworgtvno5[address] [place] [address]Dr. Nahed Yañez PROF 14(COMP METB)on 023 Albumin [Mass/Vol] 3.0 g/dL Critically low 3.4-5.0 [facility] Comment on above: Performed By: #### C MP ####[facility] Udwietngxf3[address] [place] [address]Dr. Nahed Yañez Albumin/Globulin [Mass ratio] 0.7 {ratio} Normal [facility] Comment on above: Performed By: #### C MP ####[facility] Cdzlppsrrh[address] [place], [place] [address]Dr. Nahed Yañez ALP [Catalytic activity/Vol] 93 U/L Normal 46-116 [facility] Comment on above: Performed By: #### C MP ####[facility] Vvmzxpqivj12[address] [place], [place] [address]Dr. Nahed Otilio ALT [Catalytic activity/Vol] 15 U/L Normal 14-59 [facility] Comment on above: Performed By: #### C MP ####[facility] Kwlxjqfsmg0313[address] [place], [place] [address]Dr. Nahed Otilio Anion gap [Moles/Vol] 13.0 mmol/L Normal [facility] Comment on above: Performed By: #### C MP ####[facility] Blsdcmtufa735[address] [place], [place] [address]Dr. Nahed Otilio AST [Catalytic activity/Vol] 11 U/L Critically low 15-37 [facility] Comment on above: Performed By: #### C MP ####[facility] Vqtqtnyyow2872[address] [place], [place] [address]Dr. Nahed Yañez Bilirubin [Mass/Vol] 0.2 mg/dL Normal 0.2-1.0 [facility] Comment on above: Performed By: #### C MP ####[facility] Euiouhlbjl[address] [place] [address]Dr. Nahed Yañez Calcium [Mass/Vol] 9.6 mg/dL Normal 8.5-10.1 [facility] Comment on above: Performed By: #### C MP ####[facility] Sfrsasvqpu9914 [place] [address]Dr. Nahed Yañez Chloride [Moles/Vol] 100 mmol/L Normal 98-107 [facility] Comment on above: Performed By: #### C MP ####[facility] Xlujdjyjqm4423 [place] [address]Dr. Nahed Yañez CO2 [Moles/Vol] 27.3 mmol/L Normal 21.0-32.0 [facility] Comment on above: Performed By: #### C MP ####[facility] Lsmjhtaixu3059[address] [place], [place] [address]Dr. Nahed Yañez Creatinine [Mass/Vol] 1.19 mg/dL Critically high 0.55-1.02 [facility] Comment on above: Performed By: #### C MP ####[facility] Bgcfannsgb354[address] [place], [place] [address]Dr. Nahed Yañez EGFR-AF SURINAMESE 56 mL/min/1.73m2 Critically low >=60 [facility] Comment on above: Performed By: #### C MP ####[facility] Pqnwdyefjs40[address] [place], [place] [address]Dr. Nahed Yañez EGFR-NON AF SURINAMESE 46 mL/min/1.73m2 Critically low >=60 [facility] Comment on above: Performed By: #### C MP ####[facility] Dqiwdiskjh1039[address] [place], [place] [address]Dr. Nahed Otilio Globulin (S) [Mass/Vol] 4.1 g/dL Normal [facility] Comment on above: Performed By: #### C MP ####[facility] Xmrtygbcfo4233[address] [place], [place] [address]Dr. Nahed Otilio Glucose [Mass/Vol] 244 mg/dL Critically high 74-106 T [facility] Comment on above: Performed By: #### C MP ####[facility] Bjdvujkuhq759[address] [place], [place] [address]Dr. Nahed Yañez Potassium [Moles/Vol] 4.3 mmol/L Normal 3.5-5.1 [facility] Comment on above: Performed By: #### C MP ####[facility] Wcvfpjgkut7[address] [place], [place] [address]Dr. Nahed Yañez Protein [Mass/Vol] 7.1 g/dL Normal 6.4-8.2 [facility] Comment on above: Performed By: #### C MP ####[facility] Ojmnqftrht1944[address] [place], [place] [address]Dr. Nahed Otilio Sodium [Moles/Vol] 136 mmol/L Normal 136-145 [facility] Comment on above: Performed By: #### C MP ####[facility] Mlocehdjao537[address] [place], [place] [address]Dr. Nahed Yañez Urea nitrogen [Mass/Vol] 19.0 mg/dL Critically high 7.0-18.0 [facility] Comment on above: Performed By: #### C MP ####[facility] Agvoowymsd3012[address] [place], [place] [address]Dr. Nahed Yañez Urea nitrogen/Creatinine [Mass ratio] 16.0 mg/mg Normal [facility] Comment on above: Performed By: #### C MP ####[facility] Ovxnrilhru[address] [place], [place] [address]Dr. Nahed Otilio BNPon 07-27-2022 Natriuretic peptide B (Bld) [Mass/Vol] 1093.0 pg/mL Critically high <=900.0 [facility] Comment on above: Performed By: #### B SEWER PIPE CLEANER ####[facility] Myboucffyy58[address] [place], [place] [address]Dr. Rosemarieashley Otilio CBC AUTO DIFFon 07-27-2022 BASO # 0.1 103/ul Normal 0.0-0.1 [facility] Comment on above: Performed By: #### C BC ####[facility] Lhjnrwabrz[address] [place], [place] [address]Dr. Nahed Yañez Basophils/100 WBC (Bld) 0.3 % Normal 0.2-2.0 [facility] Comment on above: Performed By: #### C BC ####[facility] Kwu[address]ntofm[address] [place] [id number]. Nahed Yañez EO # 0.2 103/ul Normal 0.0-0.7 [facility] Comment on above: Performed By: #### C BC ####[facility] Keodkrluvl9234 [place] [id number]. Nahed Yañez Eosinophils/100 WBC (Bld) 1.2 % Normal 0.9-7.0 [facility] Comment on above: Performed By: #### C BC ####[facility] Lpxjnhxeod0[address] [place], [place] [address]Dr. Nahed Yañez Erythrocyte distribution width (RBC) [Ratio] 14.1 % Normal 11.0-15.0 [facility] Comment on above: Performed By: #### C BC ####[facility] Jmtgeyrgkf[address] [place], [place] [address]Dr. Nahed Yañez Hematocrit (Bld) [Volume fraction] 42.2 % Normal 36.0-48.0 [facility] Comment on above: Performed By: #### C BC ####[facility] Fzogaosxba[address] [place], [place] [address]Dr. Nahed Yañez Hemoglobin (Bld) [Mass/Vol] 13.6 g/dL Normal 12.0-16.0 [facility] Comment on above: Performed By: #### C BC ####[facility] Qbsbqgpiju9[address] [place], [place] [address]Dr. Nahed Yañez IG # 0.09 10e3/ul Critically high 0.00-0.03 [facility] Comment on above: Performed By: #### C BC ####[facility] Y[address]qaafcqfe[address] [place], [place] [address]Dr. Nahed Yañez IG % 0.5 % Normal 0.0-0.5 [facility] Comment on above: Performed By: #### C BC ####[facility] Plhlwovvxo6[address] [place], [place] [address]Dr. Rosemarieashley Yañez LYMPH # 1.8 103/ul Normal 1.2-3.8 [facility] Comment on above: Performed By: #### C BC ####[facility] Phymnwfzgp8[address] [place] [id number]. Nahed Otilio Lymphocytes/100 WBC (Bld) 10.2 % Critically low 20.5-60.0 [facility] Comment on above: Performed By: #### C BC ####[facility] Bvicqmgxxh[address] [place] [id number]. Nahed Yañez MANUAL DIFF REQ NO Normal [facility] Comment on above: Performed By: #### C BC ####[facility] Hgembnyeal7242 [place] [id number]. Nahed Yañez MCH (RBC) [Entitic mass] 28.3 pg Normal 26.7-34.0 [facility] Comment on above: Performed By: #### C BC ####[facility] Udpmenkmkl17[address] [place] [address]Dr. Nahed Yañez MCHC (RBC) [Mass/Vol] 32.2 g/dL Normal 29.9-35.2 [facility] Comment on above: Performed By: #### C BC ####[facility] Qqlxonhhph0211 [place] [id number]. Nahed Yañez MCV (RBC) [Entitic vol] 87.9 fL Normal 81.0-99.0 [facility] Comment on above: Performed By: #### C BC ####[facility] Orxiytddsy7[address] [place] [id number]. Nahed Yañez MONO # 0.9 103/ul Critically high 0.3-0.8 [facility] Comment on above: Performed By: #### C BC ####[facility] Aziszdrnow6102 [place] [id number]. Nahed Yañez Monocytes/100 WBC (Bld) 5.2 % Normal 1.7-12.0 [facility] Comment on above: Performed By: #### C BC ####[facility] Fmqzkahibc7603 [place] [id number]. Nahed Yañez NEUT # 14.4 103/ul Critically high 1.4-6.5 [facility] Comment on above: Performed By: #### C BC ####[facility] Rpvgwbnanv1807 [place], [place] [address]Zx. Nahed Yañez Neutrophils/100 WBC (Bld) 82.6 % Critically high 43.0-75.0 [facility] Comment on above: Performed By: #### C BC ####[facility] Ohgcgvcous0344 [place], [place] [address]Vp. Nahed Yañez Platelet mean volume (Bld) [Entitic vol] 10.1 fL Normal 9.5-13.5 [facility] Comment on above: Performed By: #### C BC ####[facility] Ucfisiuunp84[address] [place] [id number]. Nahed Yañez PLT 336 103/ul Normal 150-450 [facility] Comment on above: Performed By: #### C BC ####[facility] Bdcxlstuot9983 [place] [id number]. Nahed Yañez RBC 4.80 106/ul Normal 4.20-5.40 [facility] Comment on above: Performed By: #### C BC ####[facility] Ygauorhhtz0073 [place], [place] [address]Mb. Nahed Yañez WBC 17.4 103/ul Critically high 4.0-11.0 [facility] Comment on above: Performed By: #### C BC ####[facility] Hcopjcgftw[address] [place] [id number]. Nahed Yañez CTA CHEST WO W CONon 023 CTA CHEST WO W CON Normal [facility]on [facility]12 SARS-CoV-2 (COVID-19) RNA MIRNA+probe Ql (Unsp spec) Not detected Normal NOT DETECTED [facility] Comment on above: Result Comment: When [...] for this test is supported by the [place] of Health and Human Service's declaration that [...] be used). Performed By: #### C VDTB ####[facility] Mdnpvgabkp4[address] [place], [place] [address]Dr. Nahed Yañez ECHOCARDIO M/2D COMPLETEon 0 07-27-2022 ECHOCARDIO M/2D COMPLETE Normal [facility] ER URINE PROFILEon 3 Bilirubin Ql (U) Negative Normal NEGATIVE [facility] Comment on above: Performed By: #### U MICRO, ERUR ####[facility] Qatvcnuxkd25[address] [place], [place] [address]Dr. Nahed Yañez Clarity (U) CLEAR Normal CLEAR [facility] Comment on above: Performed By: #### U MICRO, ERUR ####[facility] Mykzmdkqjd12[address] [place], [place] [address]Dr. Nahed Yañez Color (U) LT. YELLOW Normal YELLOW [facility] Comment on above: Performed By: #### U MICRO, ERUR ####[facility] Lyjvyowznf25[address] [place], [place] [address]Dr. Nahed AGEED A micrscopic examination will be performed if indicated. Normal [facility] Comment on above: Performed By: #### U MICRO, ERUR ####[facility] Okqwbjxggj2113[address] [place], [place] [address]Dr. Nahed Yañez Glucose Ql (U) >1000 Abnormal NEGATIVE The [facility] Comment on above: Performed By: #### U MICRO, ERUR ####[facility] Jqtdarofyj12[address] [place], [place] [address]Dr. Nahed Yañez Hemoglobin Ql (U) TRACE-LYSED Abnormal NEGATIVE The [facility] Comment on above: Performed By: #### U MICRO, ERUR ####[facility] Bjwmvyoyvi3958 [place] [address]Dr. Nahed Yañez Ketones Ql (U) TRACE Abnormal NEGATIVE The [facility] Comment on above: Performed By: #### U MICRO, ERUR ####[facility] Kayrlxeilw8684 [place] [address]Dr. Nahed Yañez LEUKOCYTES Negative Normal NEGATIVE [facility] Comment on above: Performed By: #### U MICRO, ERUR ####[facility] Nayrjjngxt5632 [place] [address]Dr. Nahed Yañez Nitrite Ql (U) Negative Normal NEGATIVE The [facility] Comment on above: Performed By: #### U MICRO, ERUR ####[facility] Fstjjviacy5409[address] [place], [place] [address]Dr. Nahed Yañez pH (U) 7.0 [pH] Normal 5-9 [facility] Comment on above: Performed By: #### U MICRO, ERUR ####[facility] R[address]msjgxwem25[address] [place], [place] [address]Dr. Nahed Yañez SPEC GRAVITY 1.020 Normal 1.005-<=1.02 5 [facility] Comment on above: Performed By: #### U MICRO, ERUR ####[facility] Teszyovqlt3[address] [place], [place] [address]Dr. Nahed Yañez UA PROTEIN Negative Normal NEGATIVE/ TRACE [facility] Comment on above: Performed By: #### U MICRO, ERUR ####[facility] Se[address] [place], [place] [address]Dr. Nahed Yañez UR MICRO IND INDICATED Normal [facility] Comment on above: Performed By: #### U MICRO, ERUR ####[facility] Tpvvdqkbey4[address] [place], [place] [address]Dr. Nahed Yañez Urobilinogen Qn (U) 0.2 {Alem'U}/dL Normal 0.2 - 1. 0 [facility] Comment on above: Performed By: #### U MICRO, ERUR ####[facility] Nlpvoxfrfg[address] [place], [place] [address]Dr. Naehd Yañez LIPID PROFILEon 07-27-2022 CHOL-HDL RATIO NORM SEE BELOW Normal [facility] Comment on above: Result Comment: 3.3 - 4.4 LOW RISK 4.4 - 7.1 AVERAGE RISK 7.1 - 11.0 MODERATE RISK >11.0 HIGH RISK Performed By: #### M G, LIPID ####[facility] Rdbzfzkayf8416 [place], [place] [address]Th. Nahed Yañez Cholesterol [Mass/Vol] 181 mg/dL Normal <=200 Th [facility] Comment on above: Performed By: #### M G, LIPID ####[facility] Ayneotrbrb0500 [place], [place] [address]Hf. Nahed Otilio Cholesterol in HDL [Mass/Vol] 87 mg/dL Critically high 40-60 [facility] Comment on above: Performed By: #### Pablo Moore, LIPID ####[facility] Shdkfjurur3534 [place] [id number]. Rosemarieashley Otilio Cholesterol in LDL [Mass/Vol] 78.6 mg/dL Normal [facility] Comment on above: Performed By: #### M Teresa, LIPID ####[facility] Jmybpkwsgu0273 [place], [place] [address]Uo. Nahed Otilio Cholesterol.total/Chol esterol in HDL [Mass ratio] 2.1 {ratio} Normal [facility] Comment on above: Performed By: #### Pablo Moore, LIPID ####[facility] Nstishzyre[address]137 [place] [id number]. Rosemarieashley Otilio HDL NORMAL > or = 60 mg/dl - LO W CARDIOVASCULAR RISK <40 mg/dl - HIGH CARDIOVASCULAR RISK Normal [facility] Comment on above: Performed By: #### M G, LIPID ####[facility] Csrtwcsaki9513 [place] [phone]. Nahed Otilio LDL CALC NORMAL SEE BELOW Normal [facility] Comment on above: Result Comment: <100 mg/dl OPTIMAL 100 - 129 mg/dl NEAR OR ABOVE OPTIMAL 130 - 159 mg/dl BORDERLINE HIGH 160 - 189 mg/dl HIGH >190 mg/dl VERY HIGH Performed By: #### M G, LIPID ####[facility] Xciswollao4615 [place] [phone]. Nahed Yañez Triglyceride [Mass/Vol] 77 mg/dL Normal <=150 [facility] Comment on above: Performed By: #### M G, LIPID ####[facility] Osgpongibn4283 [place] [phone]. Nahed Yañez VLDL CALC 15.4 mg/dL Normal [facility] Comment on above: Performed By: #### M G, LIPID ####[facility] Stvmarsesd7469 [place] [phone]. Nahed Yañez MAGNESIUMon 07-27-2022 Magnesium [Mass/Vol] 1.7 mg/dL Critically low 1.8-2.4 [facility] Comment on above: Performed By: #### M Teresa, LIPID ####[facility] Ubfjsgdxiz1540 [place] [address]Dr. Nahed Yañez POINT OF CARE GLUCOSEon 07-12 Glucose [Mass/Vol] 276 mg/dL Critically high -106 [facility] Comment on above: Performed By: #### P OCGLUC ####[facility] Esidecfums[address] [place] [address]Dr. Nahed Yañez Glucose [Mass/Vol] 143 mg/dL Critically high -106 [facility] Comment on above: Performed By: #### P OCGLUC ####[facility] Bgrvxtznqc6964 [place] [address]Dr. Nahed Yañez Glucose [Mass/Vol] 117 mg/dL Critically high -106 [facility] Comment on above: Performed By: #### P OCGLUC ####[facility] Wpeshtkhwf8620 [place] [address]Dr. Rosemarieashley Yañez PROF CHEM 8 (BAS METB)on Anion gap [Moles/Vol] 11.1 mmol/L Normal [facility] Comment on above: Performed By: #### B MP, HSTROPN ####[facility] Dcvzcktlrq7407 [place] [address]Dr. Nahed Yañez Calcium [Mass/Vol] 9.6 mg/dL Normal 8.5-10.1 [facility] Comment on above: Performed By: #### B RENZO, HSTROPN ####[facility] Bhrbtlvson9447 [place] [address]Dr. Nahed Yañez Chloride [Moles/Vol] 99 mmol/L Normal 98-107 [facility] Comment on above: Performed By: #### B RENZO, HSTROPN ####[facility] Ooqgkoydbl4353 [place] [address]Dr. Nahed Yañez CO2 [Moles/Vol] 27.8 mmol/L Normal 21.0-32.0 [facility] Comment on above: Performed By: #### B RENZO, HSTROPN ####[facility] Whwbvcjgia[address] [place], [place] [address]Dr. Nahed Yañez Creatinine [Mass/Vol] 0.90 mg/dL Normal 0.55-1.02 [facility] Comment on above: Performed By: #### Mery MULLER, HSTROPN ####[facility] Dftvpvueit[address] [place], [place] [address]Dr. Nahed Yañez EGFR-AF SURINAMESE >60 Normal >=60 [facility] Comment on above: Performed By: #### Mery MULLER, HSTROPN ####[facility] Qjjvxbzmpi[address] [place], [place] [address]Dr. Nahed Yañez EGFR-NON AF SURINAMESE >60 Normal >=60 [facility] Comment on above: Performed By: #### Mery MULLER, HSTROPN ####[facility] Muhpuvvzrv1688 [place] [address]Dr. Nahed Yañez Glucose [Mass/Vol] 133 mg/dL Critically high 74-106 [facility] Comment on above: Performed By: #### B RENZO, HSTROPN ####[facility] Qxoaueyauo[address] [place], [place] [address]Dr. Nahed Yañez Potassium [Moles/Vol] 3.9 mmol/L Normal 3.5-5.1 [facility] Comment on above: Performed By: #### Mery MULLER, HSTROPN ####[facility] Ptovkcbebw[address] [place], [place] [address]Dr. Nahed Yañez Sodium [Moles/Vol] 134 mmol/L Critically low 136-145 Th e [facility] Comment on above: Performed By: #### B MP, HSTROPN ####[facility] Stnsabzimw3080 [place] [address]Dr. Naehd Yañez Urea nitrogen [Mass/Vol] 9.0 mg/dL Normal 7.0-18.0 [facility] Comment on above: Performed By: #### B MP, HSTROPN ####[facility] Zswybpxeat4640 [place] [address]Dr. Rosemarieashley Yañez Urea nitrogen/Creatinine [Mass ratio] 10.0 mg/mg Normal [facility] Comment on above: Performed By: #### B MP, HSTROPN ####[facility] Zfmrqxzpyq7998 [place] [address]Dr. Nahed Otilio TROPONIN, HIGH SENSITIVITYon 07-27-2022 HSTROP 40.7 pg/mL Normal 4.0-51.3 [facility] Comment on above: Result Comment: CUT- OFF POINTS HAVE BEEN ESTABLISHED BASED ON THE FOURTH UNIVERSAL DEFINITIONS OF MYOCARDIALINFARCTION. THE UPPER REFERENCE LIMIT (URL) OF TROPONIN, DEFINED THE 99TH PERCENTILE OFcTnI DISTRIBUTION IN A REFERENCE POPULATION, HAS BEEN CONFIRMED THE DECISION THRESHOLDFOR MN DIAGNOSIS. Performed By: #### H STROPN ####[facility] Ydejyzwvfb8075 [place] [address]Dr. Nahed Yañez HSTROP 42.5 pg/mL Normal 4.0-51.3 [facility] Comment on above: Result Comment: CUT- OFF POINTS HAVE BEEN ESTABLISHED BASED ON THE FOURTH UNIVERSAL DEFINITIONS OF MYOCARDIALINFARCTION. THE UPPER REFERENCE LIMIT (URL) OF TROPONIN, DEFINED THE 99TH PERCENTILE OFcTnI DISTRIBUTION IN A REFERENCE POPULATION, HAS BEEN CONFIRMED THE DECISION THRESHOLDFOR [place] DIAGNOSIS. Performed By: #### H STROPN ####[facility] Stjezromgm74[address] [place] [address]Dr. Nahed Yañez HSTROP 50.8 pg/mL Normal 4.0-51.3 [facility] Comment on above: Result Comment: CUT- OFF POINTS HAVE BEEN ESTABLISHED BASED ON THE FOURTH UNIVERSAL DEFINITIONS OF MYOCARDIALINFARCTION. THE UPPER REFERENCE LIMIT (URL) OF TROPONIN, DEFINED THE 99TH PERCENTILE OFcTnI DISTRIBUTION IN A REFERENCE POPULATION, HAS BEEN CONFIRMED THE DECISION THRESHOLDFOR [place] DIAGNOSIS. Performed By: #### H STROPN ####[facility] Vxgtqawczk1466 [place] [id number]. Nahed Yañez HSTROP 46.3 pg/mL Normal 4.0-51.3 [facility] Comment on above: Result Comment: CUT- OFF POINTS HAVE BEEN ESTABLISHED BASED ON THE FOURTH UNIVERSAL DEFINITIONS OF MYOCARDIALINFARCTION. THE UPPER REFERENCE LIMIT (URL) OF TROPONIN, DEFINED THE 99TH PERCENTILE OFcTnI DISTRIBUTION IN A REFERENCE POPULATION, HAS BEEN CONFIRMED THE DECISION [place]RES[place]OLDFOR [place] DIAGNOSIS. Performed By: #### H STROBINH, TSH ####[facility] Habbgwqmsf[address] [place] [address]Dr. Nahed Yañez HSTROP 54.2 pg/mL Critically high 4.0-51.3 The [facility] Comment on above: Result Comment: CUT- OFF POINTS HAVE BEEN ESTABLISHED BASED ON THE [facility] UNIVERSAL DEFINITIONS OF MYOCARDIALINFARCTION. THE UPPER REFERENCE LIMIT (URL) OF TROPONIN, DEFINED THE 99TH PERCENTILE OFcTnI DISTRIBUTION IN A REFERENCE POPULATION, HAS BEEN CONFIRMED THE DECISION THRESHOLDFOR [place] DIAGNOSIS. Performed By: #### B MP, HSTROPN ####[facility] Yhmknjcywj4675 [place] [phone]. Nahed Yañez TSHon 07-27-2022 TSH 1.566 uIU/mL Normal 0.358-3.740 The [facility] Comment on above: Performed By: #### H STROPN, TSH ####[facility] Laamtnlacv[address] [place] [phone]. Nahed Yañez URINE MICROSCOPIC ONLYon BACTERIA NONE SEEN Normal NONE SEEN The [facility] Comment on above: Performed By: #### U MICRO, ERUR ####[facility] Odvhnafiml9[address] [place] [phone]. Nahed Yañez Bacteria identified Cx Nom (U) NOT INDICATED Normal The [facility] Comment on above: Performed By: #### U MICRO, ERUR ####[facility] Mohfbsixyz[address] [place] [address]Dr. Nahed Yañez CAST NONE SEEN Normal NONE SEEN The [facility] Comment on above: Performed By: #### U MICRO, ERUR ####[facility] Iplzbhsrxv4441 [place] [address]Dr. Nahed Yañez Crystals LM Nom (Urine sed) NONE SEEN Normal NONE SEEN The [facility] Comment on above: Performed By: #### U MICRO, ERUR ####[facility] Lpedxeipab3051 [place] [address]Dr. Nahed Yañez Epithelial cells LM Ql (Urine sed) FEW Abnormal NONE SEEN /RARE The [facility] Comment on above: Performed By: #### U MICRO, ERUR ####[facility] Eqwlehfoym25[address] [place] [address]Dr. Nahed Yañez MUCOUS NONE SEEN Normal NONE SEEN The [facility] Comment on above: Performed By: #### U MICRO, ERUR ####[facility] Wydfinhbou[address] [place], [place] [address]Dr. Nahed Yañez RBC 0-2 Normal 0-2 The [facility] Comment on above: Performed By: #### U MICRO, ERUR ####[facility] Elsvlvxzep[address] [place], [place] [address]Dr. Nahed Yañez WBC NONE SEEN Normal NONE SEEN The [facility] Comment on above: Performed By: #### U MICRO, ERUR ####[facility] Birkpsrngl[address] [place], [place] [address]Dr. Nahed Yañez XR CHEST 1 Von 07-27-2022 XR CHEST 1 V Normal The [facility] INSULINon 05-09-2022 Insulin 21.1 uIU/mL Normal 2.6-24.9 The [facility] Comment on above: Performed By: #### I NSULIN ####[facility] Prrindsdqw[address] [place], [place] [address]Dr. Nahed Yañez BNPon 05-08-2022 Natriuretic peptide B (Bld) [Mass/Vol] 58.0 pg/mL Normal <=900.0 The [facility] Comment on above: Performed By: #### B SEWER PIPE CLEANER, LIPID, T7, TSH, CMP ####[facility] Udjalgceqq3670 [place] [phone]. Nahed Yañez CBC AUTO DIFFon 05-08-2022 BASO # 0.0 103/ul Normal 0.0-0.1 [facility] Comment on above: Performed By: #### C BC ####[facility] Tgbcmudsxj7109 [place] [phone]. Nahed Yañez Basophils/100 WBC (Bld) 0.4 % Normal 0.2-2.0 The [facility] Comment on above: Performed By: #### C BC ####[facility] Nnxyulrjil[address] [place], [place] [address]Dr. Nahed Yañez EO # 0.3 103/ul Normal 0.0-0.7 The [facility] Comment on above: Performed By: #### C BC ####[facility] Hnstwticum[address] [place], [place] [address]Dr. Nahed Yañez Eosinophils/100 WBC (Bld) 4.2 % Normal 0.9-7.0 The [facility] Comment on above: Performed By: #### C BC ####[facility] Xvrgmgnwjy[address] [place], [place] [address]Dr. Nahed Yañez Erythrocyte distribution width (RBC) [Ratio] 14.0 % Normal 11.0-15.0 The [facility] Comment on above: Performed By: #### C BC ####[facility] [address]ilddeeqf[address] [place], [place] [address]Dr. Nahed Yañez Hematocrit (Bld) [Volume fraction] 43.8 % Normal 36.0-48.0 The [facility] Comment on above: Performed By: #### C BC ####[facility] Fcf[address]yatgs[address] [place], [place] [address]Dr. Nahed Yañez Hemoglobin (Bld) [Mass/Vol] 13.9 g/dL Normal 12.0-16.0 The [facility] Comment on above: Performed By: #### C BC ####[facility] Eoodkbaoog[address] [place], [place] [address]Dr. Nahed Yañez IG # 0.01 10e3/ul Normal 0.00-0.03 [facility] Comment on above: Performed By: #### C BC ####[facility] Qsrstsqgrw4541 [place] [address]DrShaun Rosemarieashley Yañez IG % 0.1 % Normal 0.0-0.5 [facility] Comment on above: Performed By: #### C BC ####[facility] Ywuailrizp3728 [place] [phone] Rosemarieashley Yañez LYMPH # 2.8 103/ul Normal 1.2-3.8 [facility] Comment on above: Performed By: #### C BC ####[facility] Eubhbqhutj8935 [place] [address]DrShaun Rosemarieashley Yañez Lymphocytes/100 WBC (Bld) 37.6 % Normal 20.5-60.0 [facility] Comment on above: Performed By: #### C BC ####[facility] Tzqrywltbo[address] [place], [place] [address]DrShaun Yañez MANUAL DIFF REQ NO Normal [facility] Comment on above: Performed By: #### C BC ####[facility] Xaxvbevrvq0094 [place] [phone]. Nahed Otilio MCH (RBC) [Entitic mass] 28.4 pg Normal 26.7-34.0 [facility] Comment on above: Performed By: #### C BC ####[facility] Qwudixmd[address] [place], [place] [address]DrShaun Nahed Otilio MCHC (RBC) [Mass/Vol] 31.7 g/dL Normal 29.9-35.2 [facility] Comment on above: Performed By: #### C BC ####[facility] Drouidtmmx[address] [place], [place] [address]DrShaun Rosemarieashley Yañez MCV (RBC) [Entitic vol] 89.6 fL Normal 81.0-99.0 [facility] Comment on above: Performed By: #### C BC ####[facility] Hmixrobwfc0995 [place] [id number] Yañez MONO # 0.5 103/ul Normal 0.3-0.8 The [facility] Comment on above: Performed By: #### C BC ####[facility] Otlvahwiul3707 [place] [phone]. Nahed Yañez Monocytes/100 WBC (Bld) 6.8 % Normal 1.7-12.0 The [facility] Comment on above: Performed By: #### C BC ####[facility] Tbhgygbvng4075 [place] [phone]. Nahed Yañez NEUT # 3.7 103/ul Normal 1.4-6.5 [facility] Comment on above: Performed By: #### C BC ####[facility] Iplumnyaii6288 [place] [phone]. Nahed Yañez Neutrophils/100 WBC (Bld) 50.9 % Normal 43.0-75.0 The [facility] Comment on above: Performed By: #### C BC ####[facility] Mmqugeeqsi3074 [place] [address]Dr. Nahed Yañez Platelet mean volume (Bld) [Entitic vol] 9.8 fL Normal 9.5-13.5 [facility] Comment on above: Performed By: #### C BC ####[facility] Qrhmfnwkad7028 [place] [phone]. Nahed Yañez PLT 306 103/ul Normal 150-450 The [facility] Comment on above: Performed By: #### C BC ####[facility] Ejyahggots6534 [place] [phone]. Nahed Yañez RBC 4.89 106/ul Normal 4.20-5.40 The [facility] Comment on above: Performed By: #### C BC ####[facility] Icfoxpjrdt9477 [place] [phone]. Nahed Yañez WBC 7.3 103/ul Normal 4.0-11.0 The [facility] Comment on above: Performed By: #### C BC ####[facility] Uoxogxxdrf6593 [place] [phone]. Nahed Yañez FREE THYROXINE INDEX T7on FTI 2.92 Normal 1.30-4.50 The [facility] Comment on above: Performed By: #### B SEWER PIPE CLEANER, LIPID, T7, TSH, CMP ####[facility] Shrzqztwtp5069 [place] [phone]. Nahed Yañez T3U 34.0 % Normal 30.0-39.0 [facility] Comment on above: Performed By: #### B SEWER PIPE CLEANER, LIPID, T7, TSH, CMP ####[facility] Sugzgrzhgu6336 [place] [phone]. Nahed Yañez T4 [Mass/Vol] 8.60 ug/dL Normal 4.80-13.90 [facility] Comment on above: Performed By: #### B SEWER PIPE CLEANER, LIPID, T7, TSH, CMP ####[facility] Ldteyhralw34[address] [place] [address]Dr. Nahed Yañez GLYCOHEMOGLOBIN A1Con 2021 ADA RECOMMENDATION SEE BELOW Normal [facility] Comment on above: Result Comment: ADA RECOMMENDED LIMIT 4.0 - 6.0 ADA THERAPEUTIC TARGET < 7.0 ACTION SUGGESTED > 7.0 Performed By: #### A 1C ####[facility] Acbkepxjjj3752 [place] [address]Dr. Nahed Yañez Glucose [Mass/Vol] 146 mg/dL Normal [facility] Comment on above: Performed By: #### A 1C ####[facility] Uqanpqztmf8985 [place] [address]Dr. Nahed Yañez HbA1c (Bld) [Mass fraction] 6.7 % Critically high 4.5-6.2 [facility] Comment on above: Performed By: #### A 1C ####[facility] Ldgpwfgaef5855 [place] [phone]. Nahed Yañez IRONon 05-08-2022 Iron [Mass/Vol] 76.0 ug/dL Normal 50.0-170.0 [facility] Comment on above: Performed By: #### V ITAD, IRON ####[facility] Enqyejwtqi5073 [place] [phone]. Nahed Yañez LIPID PROFILEon 05-08-2022 CHOL-HDL RATIO NORM SEE BELOW Normal [facility] Comment on above: Result Comment: 3.3 - 4.4 LOW RISK 4.4 - 7.1 AVERAGE RISK 7.1 - 11.0 MODERATE RISK >11.0 HIGH RISK Performed By: #### B SEWER PIPE CLEANER, LIPID, T7, TSH, CMP ####[facility] Hdukknicxp3241 [place] [address]Dr. Nahed Yañez Cholesterol [Mass/Vol] 167 mg/dL Normal <=200 [facility] Comment on above: Performed By: #### B SEWER PIPE CLEANER, LIPID, T7, TSH, CMP ####[facility] Cxrnypkyub[address] [place], [place] [address]Dr. Nahed Yañez Cholesterol in HDL [Mass/Vol] 63 mg/dL Critically high 40-60 [facility] Comment on above: Performed By: #### B SEWER PIPE CLEANER, LIPID, T7, TSH, CMP ####[facility] Rqdwhtvcbi[address] [place], [place] [address]Dr. Nahed Yañez Cholesterol in LDL [Mass/Vol] 72.6 mg/dL Normal [facility] Comment on above: Performed By: #### B SEWER PIPE CLEANER, LIPID, T7, TSH, CMP ####[facility] Vncrehjmqc[address] [place], [place] [address]Dr. Nahed Yañez Cholesterol.total/Chol esterol in HDL [Mass ratio] 2.7 {ratio} Normal [facility] Comment on above: Performed By: #### B SEWER PIPE CLEANER, LIPID, T7, TSH, CMP ####[facility] [address]sj[address]nq[address] [place], [place] [address]Dr. Rosemarieashley Yañez HDL NORMAL > or = 60 mg/dl - LO W CARDIOVASCULAR RISK <40 mg/dl - HIGH CARDIOVASCULAR RISK Normal [facility] Comment on above: Performed By: #### B SEWER PIPE CLEANER, LIPID, T7, TSH, CMP ####[facility] Iashwzyndc[address] [place], [place] [address]Dr. Rosemarieashley Yañez LDL CALC NORMAL SEE BELOW Normal [facility] Comment on above: Result Comment: <100 mg/dl OPTIMAL 100 - 129 mg/dl NEAR OR ABOVE OPTIMAL 130 - 159 mg/dl BORDERLINE HIGH 160 - 189 mg/dl HIGH >190 mg/dl VERY HIGH Performed By: #### B SEWER PIPE CLEANER, LIPID, T7, TSH, CMP ####[facility] Jhhopyfblt1244 [place] [phone]. Nahed Yañez Triglyceride [Mass/Vol] 157 mg/dL Critically high <=150 [facility] Comment on above: Performed By: #### B SEWER PIPE CLEANER, LIPID, T7, TSH, CMP ####[facility] Aduhmwcujy7495 [place] [address]Dr. Nahed Yañez VLDL CALC 31.4 mg/dL Normal [facility] Comment on above: Performed By: #### B SEWER PIPE CLEANER, LIPID, T7, TSH, CMP ####[facility] Sdtzctnrtb3884 [place] [address]Dr. Nahed Yañez OCC BLD IMMUNO SCREENon 04-14 OCCULT BLOOD Negative Normal NEGATIVE [facility] Comment on above: Performed By: #### O BSCRN ####[facility] Dmapkfwgnq6868 [place] [address]Dr. Nahed Yañez PROF 14(COMP METB)on 022 Albumin [Mass/Vol] 3.7 g/dL Normal 3.4-5.0 [facility] Comment on above: Performed By: #### B SEWER PIPE CLEANER, LIPID, T7, TSH, CMP ####[facility] Gqgapzjydx31[address] [place] [address]Dr. Nahed Yañez Albumin/Globulin [Mass ratio] 0.9 {ratio} Normal [facility] Comment on above: Performed By: #### B SEWER PIPE CLEANER, LIPID, T7, TSH, CMP ####[facility] Iwopsqwhhm6393 [place] [address]Dr. Nahed Yañez ALP [Catalytic activity/Vol] 99 U/L Normal 46-116 The [facility] Comment on above: Performed By: #### B SEWER PIPE CLEANER, LIPID, T7, TSH, CMP ####[facility] Bormbllzst5993 [place] [address]Dr. Nahed Yañez ALT [Catalytic activity/Vol] 20 U/L Normal 14-59 [facility] Comment on above: Performed By: #### B SEWER PIPE CLEANER, LIPID, T7, TSH, CMP ####[facility] Iwyrsvchyy5601 [place] [address]Dr. Nahed Yañez Anion gap [Moles/Vol] 10.6 mmol/L Normal Th e [facility] Comment on above: Performed By: #### B SEWER PIPE CLEANER, LIPID, T7, TSH, CMP ####[facility] Vuyaxnucek9073 [place] [address]Dr. Nahed Yañez AST [Catalytic activity/Vol] 29 U/L Normal 15-37 [facility] Comment on above: Performed By: #### B SEWER PIPE CLEANER, LIPID, T7, TSH, CMP ####[facility] Asralynyih9672 [place] [address]Dr. Nahed Yañez Bilirubin [Mass/Vol] 0.4 mg/dL Normal 0.2-1.0 [facility] Comment on above: Performed By: #### B SEWER PIPE CLEANER, LIPID, T7, TSH, CMP ####[facility] Peplaisuzy[address] [place], [place] [address]Dr. Nahed Yañez Calcium [Mass/Vol] 9.3 mg/dL Normal 8.5-10.1 [facility] Comment on above: Performed By: #### B SEWER PIPE CLEANER, LIPID, T7, TSH, CMP ####[facility] [address]dsqxsm[address] [place], [place] [address]Dr. Nahed Yañez Chloride [Moles/Vol] 100 mmol/L Normal 98-107 [facility] Comment on above: Performed By: #### B SEWER PIPE CLEANER, LIPID, T7, TSH, CMP ####[facility] Ct[address]jrjcr[address] [place], [place] [address]Dr. Nahed Yañez CO2 [Moles/Vol] 31.4 mmol/L Normal 21.0-32.0 The [facility] Comment on above: Performed By: #### B SEWER PIPE CLEANER, LIPID, T7, TSH, CMP ####[facility] Fwrpntcxfy13[address] [place], [place] [address]Dr. Nahed Yañez Creatinine [Mass/Vol] 1.01 mg/dL Normal 0.55-1.02 [facility] Comment on above: Performed By: #### B SEWER PIPE CLEANER, LIPID, T7, TSH, CMP ####[facility] Ohqphbkclj2875 [place] [address]Dr. Nahed Yañez EGFR-AF SURINAMESE >60 Normal >=60 [facility] Comment on above: Performed By: #### B SEWER PIPE CLEANER, LIPID, T7, TSH, CMP ####[facility] Wqhlijduxk6232 [place] [address]Dr. Nahed Yañez EGFR-NON AF SURINAMESE 56 mL/min/1.73m2 Critically low >=60 The [facility] Comment on above: Performed By: #### B SEWER PIPE CLEANER, LIPID, T7, TSH, CMP ####[facility] Orjklhmqtx[address] [place], [place] [address]Dr. Nahed Yañez Globulin (S) [Mass/Vol] 3.9 g/dL Normal [facility] Comment on above: Performed By: #### B SEWER PIPE CLEANER, LIPID, T7, TSH, CMP ####[facility] Yqtmmlwwjq[address] [place], [place] [address]Dr. Nahed Yañez Glucose [Mass/Vol] 111 mg/dL Critically high 74-106 [facility] Comment on above: Performed By: #### B SEWER PIPE CLEANER, LIPID, T7, TSH, CMP ####[facility] Ixy[address]orkmoy[address] [place], [place] [address]Dr. Nahed Yañez Potassium [Moles/Vol] 4.0 mmol/L Normal 3.5-5.1 [facility] Comment on above: Performed By: #### B SEWER PIPE CLEANER, LIPID, T7, TSH, CMP ####[facility] [address]osmkfpd[address] [place], [place] [address]Dr. Nahed Yañez Protein [Mass/Vol] 7.6 g/dL Normal 6.4-8.2 [facility] Comment on above: Performed By: #### B SEWER PIPE CLEANER, LIPID, T7, TSH, CMP ####[facility] [address]vjvgnaub[address] [place], [place] [address]Dr. Nahed Yañez Sodium [Moles/Vol] 138 mmol/L Normal 136-145 [facility] Comment on above: Performed By: #### B SEWER PIPE CLEANER, LIPID, T7, TSH, CMP ####[facility] Aoutwlzeyi8[address] [place], [place] [address]Dr. Nahed Yañez Urea nitrogen [Mass/Vol] 17.0 mg/dL Normal 7.0-18.0 [facility] Comment on above: Performed By: #### B SEWER PIPE CLEANER, LIPID, T7, TSH, CMP ####[facility] Ugfnpnzhlo3588 [place] [address]Dr. Nahed Yañez Urea nitrogen/Creatinine [Mass ratio] 16.8 mg/mg Normal [facility] Comment on above: Performed By: #### B SEWER PIPE CLEANER, LIPID, T7, TSH, CMP ####[facility] Gjvvxsjuxi2866 [place] [phone]. Nahed Yañez TSHon 05-08-2022 TSH 2.835 uIU/mL Normal 0.358-3.740 [facility] Comment on above: Performed By: #### B SEWER PIPE CLEANER, LIPID, T7, TSH, CMP ####[facility] Dahjxunsdu5906 [place] [address]Dr. Nahed Yañez VITAMIN D 25 OHon 05-08-2022 VIT D 25-OH 13.4 ng/mL Normal [facility] Comment on above: Performed By: #### V ITLUISA, IRON ####[facility] N[address]ngcezft[address] [place], [place] [address]Dr. Nahed Yañez VIT D RANGES SEE BELOW Normal [facility] Comment on above: Result Comment: <20 ng/mL Vit D deficient 20 - <30 ng/mL Vit D insufficient 30 - 100 ng/mL Vit D sufficient >100 ng/mL Potential Toxicity Performed By: #### V ITLUISA, IRON ####[facility] Sntfixkaga64[address] [place] [address]Dr. Nahed Yañez CARDIAC FRANCISCO 3-6on 2 CK [Catalytic activity/Vol] 37 U/L Normal 26-192 [facility] Comment on above: Performed By: #### C MREP ####[facility] Etfdcvkrjy95[address] [place] [address]Dr. Nahed Yañez CK.MB [Mass/Vol] 0.79 ng/mL Normal <=3.60 [facility] Comment on above: Performed By: #### C MREP ####[facility] Gunntnxipe[address] [place] [address]Dr. Nahed Yañez HSTROP 55.3 pg/mL Critically high 4.0-51.3 [facility] Comment on above: Result Comment: CUT- OFF POINTS HAVE BEEN ESTABLISHED BASED ON THE FOURTH UNIVERSAL DEFINITIONS OF MYOCARDIALINFARCTION. THE UPPER REFERENCE LIMIT (URL) OF TROPONIN, DEFINED THE 99TH PERCENTILE OFcTnI DISTRIBUTION IN A REFERENCE POPULATION, HAS BEEN CONFIRMED THE DECISION THRESHOLDFOR [place] DIAGNOSIS. Performed By: #### C MREP ####[facility] Onxqsceykw075[address] [place] [phone]. Nahed Yañez CK [Catalytic activity/Vol] 49 U/L Normal 26-192 [facility] Comment on above: Performed By: #### C MREP ####[facility] Sldwtvzmww1358 [place] [address]Dr. Nahed Yañez CK.MB [Mass/Vol] 0.71 ng/mL Normal <=3.60 [facility] Comment on above: Performed By: #### C MREP ####[facility] Fxokvrwvbs0302 [place] [phone]. Nahed Yañez HSTROP 62.6 pg/mL Critically high 4.0-51.3 [facility] Comment on above: Result Comment: CUT- OFF POINTS HAVE BEEN ESTABLISHED BASED ON THE FOURTH UNIVERSAL DEFINITIONS OF MYOCARDIALINFARCTION. THE UPPER REFERENCE LIMIT (URL) OF TROPONIN, DEFINED THE 99TH PERCENTILE OFcTnI DISTRIBUTION IN A REFERENCE POPULATION, HAS BEEN CONFIRMED THE DECISION THRESHOLDFOR [place] DIAGNOSIS. Performed By: #### C MREP ####[facility] Rfanlwfycj7198 [place] [phone]. Nahed Yañez Covid-19 PCR (CVDTB)on 01-13 SARS-CoV-2 (COVID-19) RNA MIRNA+probe Ql (Unsp spec) Not detected Normal NOT DETECTED [facility] Comment on above: Result Comment: When [...] for this test is supported by the [employer] of Health and Human Service's declaration that [...] longer be used). Performed By: #### C [facility] ####[facility] [address]vxtjhomf[address] [place], [place] [address]Dr. Nahed Yañez ECHO LIMITED STUDYon 022 ECHO LIMITED STUDY Normal [facility] GLYCOHEMOGLOBIN A1Con 2021 ADA RECOMMENDATION SEE BELOW Normal [facility] Comment on above: Result Comment: ADA RECOMMENDED LIMIT 4.0 - 6.0 ADA THERAPEUTIC TARGET < 7.0 ACTION SUGGESTED > 7.0 Performed By: #### A 1C ####[facility] [address]jx[address] [place], [place] [address]Dr. Nahed Yañez Glucose [Mass/Vol] 140 mg/dL Normal [facility] Comment on above: Performed By: #### A 1C ####[facility] [address]tvzqav[address] [place], [place] [address]Dr. Nahed Yañez HbA1c (Bld) [Mass fraction] 6.5 % Critically high 4.5-6.2 [facility] Comment on above: Performed By: #### A 1C ####[facility] [address] [place], [place] [address]Dr. Nahed Yañez LIPID PROFILEon 01-31-2022 CHOL-HDL RATIO NORM SEE BELOW Normal [facility] Comment on above: Result Comment: 3.3 - 4.4 LOW RISK 4.4 - 7.1 AVERAGE RISK 7.1 - 11.0 MODERATE RISK >11.0 HIGH RISK Performed By: #### L IPID ####[facility] Eqhpylxanu[address] [place], [place] [address]Dr. Nahed Yañez Cholesterol [Mass/Vol] 152 mg/dL Normal <=200 [facility] Comment on above: Performed By: #### L IPID ####[facility] Pxkcacogve0083 [place], [place] [address]Rf. Nahed Yañez Cholesterol in HDL [Mass/Vol] 74 mg/dL Critically high 40-60 [facility] Comment on above: Performed By: #### L IPID ####[facility] Ffuuiyijmu8715 [place] [id number]. Nahed Yañez Cholesterol in LDL [Mass/Vol] 62.8 mg/dL Normal [facility] Comment on above: Performed By: #### L IPID ####[facility] Hzkqmnlwyc9475 [place] [id number]. Nahed Yañez Cholesterol.total/Chol esterol in HDL [Mass ratio] 2.1 {ratio} Normal [facility] Comment on above: Performed By: #### L IPID ####[facility] Gtpjslqzcq2276 [place] [phone]. Nahed Yañez HDL NORMAL > or = 60 mg/dl - LO W CARDIOVASCULAR RISK <40 mg/dl - HIGH CARDIOVASCULAR RISK Normal [facility] Comment on above: Performed By: #### L IPID ####[facility] Ezoupucqbi3958 [place] [phone]. Nahed Yañez LDL CALC NORMAL SEE BELOW Normal [facility] Comment on above: Result Comment: <100 mg/dl OPTIMAL 100 - 129 mg/dl NEAR OR ABOVE OPTIMAL 130 - 159 mg/dl BORDERLINE HIGH 160 - 189 mg/dl HIGH >190 mg/dl VERY HIGH Performed By: #### L IPID ####[facility] Cjpbuxrpxt9440 [place] [phone]. Nahed Yañez Triglyceride [Mass/Vol] 76 mg/dL Normal <=150 [facility] Comment on above: Performed By: #### L IPID ####[facility] [address] [place] [id number]. Nahed Yañez VLDL CALC 15.2 mg/dL Normal [facility] Comment on above: Performed By: #### L IPID ####[facility] Xlcbuxlgad4147 [place] [id number]. Nahed Yañez XR CHEST 1 Von 01-31-2022 XR CHEST 1 V Normal [facility] BNPon 01-30-2022 Natriuretic peptide B (Bld) [Mass/Vol] 150.0 pg/mL Normal <=900.0 The [facility] Comment on above: Performed By: #### B MP, BNP, CMADM ####[facility] [address]rkvm[address]cvph[address] [place] [address]Dr. Rosemarieashley Yañez CARDIAC FRANCISCO ADMITon 022 CK [Catalytic activity/Vol] 88 U/L Normal 26-192 The [facility] Comment on above: Performed By: #### B MP, BNP, CMADM ####[facility] Gopwiqemht[address] [place] [address]Dr. Nahed Otilio CK.MB [Mass/Vol] 1.26 ng/mL Normal <=3.60 The [facility] Comment on above: Performed By: #### B MP, BNP, CMADM ####[facility] [address] [place], [place] [address]Dr. Nahed Yañez HSTROP 69.3 pg/mL Critically high 4.0-51.3 The [facility] Comment on above: Result Comment: CUT- OFF POINTS HAVE BEEN ESTABLISHED BASED ON THE FOURTH UNIVERSAL DEFINITIONS OF MYOCARDIALINFARCTION. THE UPPER REFERENCE LIMIT (URL) OF TROPONIN, DEFINED THE 99TH PERCENTILE OFcTnI DISTRIBUTION IN A REFERENCE POPULATION, HAS BEEN CONFIRMED THE DECISION THRESHOLDFOR MN DIAGNOSIS. Performed By: #### B MP, BNP, CMADM ####[facility] Ubxulaeppa[address] [place] [address]Dr. Nahed Otilio ANDRE 59 ng/mL Normal 9-82 The [facility] Comment on above: Performed By: #### B MP, BNP, CMADM ####[facility] Aflbbzaads[address] [place] [address]Dr. Nahed Yañez CBC AUTO DIFFon 01-30-2022 BASO # 0.0 103/ul Normal 0.0-0.1 [facility] Comment on above: Performed By: #### C BC ####[facility] Eqsufsyeyr[address] [place], [place] [address]Dr. Nahed Yañez Basophils/100 WBC (Bld) 0.2 % Normal 0.2-2.0 The [facility] Comment on above: Performed By: #### C BC ####[facility] Obklnayaty13[address] [place] [address]Dr. Nahed Yañez EO # 0.1 103/ul Normal 0.0-0.7 The [facility] Comment on above: Performed By: #### C BC ####[facility] Uvnwcnejbw48[address] [place] [address]Dr. Nahed Yañez Eosinophils/100 WBC (Bld) 0.8 % Critically low 0.9-7.0 The [facility] Comment on above: Performed By: #### C BC ####[facility] [address] [place], [place] [address]Dr. Nahed Yañez Erythrocyte distribution width (RBC) [Ratio] 14.9 % Normal 11.0-15.0 [facility] Comment on above: Performed By: #### C BC ####[facility] [address] [place], [place] [address]Dr. Nahed Yañez Hematocrit (Bld) [Volume fraction] 45.8 % Normal 36.0-48.0 The [facility] Comment on above: Performed By: #### C BC ####[facility] [address] [place], [place] [address]Dr. Nahed Yañez Hemoglobin (Bld) [Mass/Vol] 14.7 g/dL Normal 12.0-16.0 The [facility] Comment on above: Performed By: #### C BC ####[facility] [address] [place], [place] [address]Dr. Nahed Yañez IG # 0.07 10e3/ul Critically high 0.00-0.03 The [facility] Comment on above: Performed By: #### C BC ####[facility] [address] [place], [place] [address]Dr. Nahed Yañez IG % 0.4 % Normal 0.0-0.5 The [facility] Comment on above: Performed By: #### C BC ####[facility] Ulqhxykdop[address] [place] [address]Dr. Nahed Otilio LYMPH # 2.3 103/ul Normal 1.2-3.8 The [facility] Comment on above: Performed By: #### C BC ####[facility] Muzinuqacr4[address] [place] [address]Dr. Nahed Otilio Lymphocytes/100 WBC (Bld) 12.5 % Critically low 20.5-60.0 The [facility] Comment on above: Performed By: #### C BC ####[facility] Bazmtighoq36[address] [place] [address]Dr. Nahed Otilio MANUAL DIFF REQ NO Normal The [facility] Comment on above: Performed By: #### C BC ####[facility] Dbnnrudjse6968 [place] [address]Dr. Nahed Otilio MCH (RBC) [Entitic mass] 28.0 pg Normal 26.7-34.0 The [facility] Comment on above: Performed By: #### C BC ####[facility] W[address]zv[address] [place], [place] [address]Dr. Nahed Oitlio MCHC (RBC) [Mass/Vol] 32.1 g/dL Normal 29.9-35.2 The [facility] Comment on above: Performed By: #### C BC ####[facility] Zozshtkicw[address] [place] [address]Dr. Nahed Otilio MCV (RBC) [Entitic vol] 87.2 fL Normal 81.0-99.0 The [facility] Comment on above: Performed By: #### C BC ####[facility] Zilsylkrgb[address] [place] [address]Dr. Nahed Otilio MONO # 0.9 103/ul Critically high 0.3-0.8 The [facility] Comment on above: Performed By: #### C BC ####[facility] [address]setf[address] [place], [place] [address]Dr. Nahed Otilio Monocytes/100 WBC (Bld) 5.1 % Normal 1.7-12.0 The [facility] Comment on above: Performed By: #### C BC ####[facility] Tbdadpbynh2732 [place] [address]Dr. Nahed Yañez NEUT # 14.6 103/ul Critically high 1.4-6.5 The [facility] Comment on above: Performed By: #### C BC ####[facility] Ylfwsidhvv6906 [place] [address]Dr. Nahed Yañez Neutrophils/100 WBC (Bld) 81.0 % Critically high 43.0-75.0 [facility] Comment on above: Performed By: #### C BC ####[facility] Nhuhrwdkbv4438 [place] [address]Dr. Nahed Yañez Platelet mean volume (Bld) [Entitic vol] 10.3 fL Normal 9.5-13.5 The [facility] Comment on above: Performed By: #### C BC ####[facility] Qhnkupyedf8676 [place] [address]Dr. Nahed Yañez PLT 280 103/ul Normal 150-450 [facility] Comment on above: Performed By: #### C BC ####[facility] Ltyxbkvhoo[address] [place], [place] [address]Dr. Nahed Yañez RBC 5.25 106/ul Normal 4.20-5.40 [facility] Comment on above: Performed By: #### C BC ####[facility] U[address] [place], [place] [address]Dr. Nahed Yañez WBC 18.1 103/ul Critically high 4.0-11.0 [facility] Comment on above: Performed By: #### C BC ####[facility] [address]rok[address] [place], [place] [address]Dr. Rosemarieashley Yañez PROF CHEM 8 (BAS METB)on Anion gap [Moles/Vol] 13.5 mmol/L Normal [facility] Comment on above: Performed By: #### B MP, BNP, CMADM ####[facility] Fnqyhuogig4[address] [place] [address]Dr. Nahed Yañez Calcium [Mass/Vol] 9.5 mg/dL Normal 8.5-10.1 [facility] Comment on above: Performed By: #### B MP, BNP, CMADM ####[facility] Plnwmvvuks38[address] [place] [address]Dr. Nahed Yañez Chloride [Moles/Vol] 102 mmol/L Normal 98-107 [facility] Comment on above: Performed By: #### B MP, BNP, CMADM ####[facility] Uqvslerqxi1887 [place] [address]Dr. Nahed Yañez CO2 [Moles/Vol] 26.6 mmol/L Normal 21.0-32.0 The [facility] Comment on above: Performed By: #### B MP, BNP, CMADM ####[facility] Rzgefsljlw01[address] [place] [address]Dr. Nahed Yañez Creatinine [Mass/Vol] 1.06 mg/dL Critically high 0.55-1.02 [facility] Comment on above: Performed By: #### B MP, BNP, CMADM ####[facility] [address] [place], [place] [address]Dr. Nahed Yañez EGFR-AF SURINAMESE >60 Normal >=60 The [facility] Comment on above: Performed By: #### B MP, BNP, CMADM ####[facility] [address] [place], [place] [address]Dr. Nahed Yañez EGFR-NON AF SURINAMESE 53 mL/min/1.73m2 Critically low >=60 [facility] Comment on above: Performed By: #### B MP, BNP, CMADM ####[facility] Qdthgfbbsv3161 [place] [address]Dr. Nahed Yañez Glucose [Mass/Vol] 108 mg/dL Critically high 74-106 [facility] Comment on above: Performed By: #### B MP, BNP, CMADM ####[facility] [address] [place], [place] [address]Dr. Nahed Yañez Potassium [Moles/Vol] 4.1 mmol/L Normal 3.5-5.1 [facility] Comment on above: Performed By: #### B MP, BNP, CMADM ####[facility] Rcnyowuvcd[address] [place] [address]Dr. Nahed Yañez Sodium [Moles/Vol] 138 mmol/L Normal 136-145 [facility] Comment on above: Performed By: #### B MP, BNP, CMADM ####[facility] Yfw[address]m15[address] [place], [place] [address]Ff. Nahed Yañez Urea nitrogen [Mass/Vol] 9.0 mg/dL Normal 7.0-18.0 [facility] Comment on above: Performed By: #### B MP, BNP, CMADM ####[facility] Bdyjzzlxmn9[address] [place], [place] [address]Qv. Rosemarieashley Yañez Urea nitrogen/Creatinine [Mass ratio] 8.5 mg/mg Normal [facility] Comment on above: Performed By: #### B MP, BNP, CMADM ####[facility] [address]rflc[address] [place], [place] [address]Oo. Nahed Yañez Cardiovascular Lab Reporton 11-03-2021 Cardiovascular Lab Report [facility] Patient Name: Vivian Vann [facility] MR #: [id number] Physician: Gasper Avendano, Department of M.D. Medicine Service Date: 11/02/2021 Division of Birthdate: 1960 Cardiology Room #: 4AB [id number] Adult Cardiovascular Services [place] [address] Cardiovascular Laboratory Report FINAL IMPRESSIONS: 1. Severe, [...] anterior descending coronary artery, placement of a 6-Mosotho MynxGrip closure device. METHODS: After risks, benefits, and alternatives were explained, written informed consent was obtained. The patient was prepped and draped in usual sterile fashion over both groins. Using 1% lidocaine solution, local infiltration anesthesia was achieved over the right groin. Under ultrasound guidance, a micropuncture kit was used to access the right common femoral artery. This was upsized to a 6-Mosotho 11 cm sheath. Angiography via the 6-Mosotho sheath was performed. Bilateral selective coronary angiography was performed using JL4 and JR4 catheters. After reviewing the images, it was elected to proceed with an interventional procedure. A 6-Mosotho XB3.5 guide catheter was advanced over a [...] artery, angiography was repeated initially using a 6-Mosotho 3DRC catheter and subsequently using a 4-Mosotho JR4 catheter. After administration of intracoronary nitroglycerin, the concerning lesion almost completely resolved. There was a residual mild stenosis. All catheters removed. A 6-Mosotho MynxGrip closure device was deployed per protocol [...] and anatomy suitable for closure device. INDICATION: Dyq-BB-wjraalfek myocardial infarction. Electronically Signed by: Gasper Avendano M.D. 11/21/2021 02:07 P Gasper Avendano M.D (more content not included)... Normal The [facility] CBC COMPLETE BLOOD COUNTon 0 - Erythrocyte distribution width (RBC) [Ratio] 14.7 % Normal 11.5-15.0 The [facility] Comment on above: Order Comment: No: D o not add to previous draw Performed By: #### 3 5840, 92634 #### [facility] [address] Hematocrit (Bld) [Volume fraction] 34.5 % Low 36.0-45.0 The [facility] Comment on above: Order Comment: No: D o not add to previous draw Performed By: #### 3 7480, 60096 #### [facility] [address] [place] [address], [facility] Hemoglobin (Bld) [Mass/Vol] 10.6 g/dL Low 12.0-15.0 The [facility] Comment on above: Order Comment: No: D o not add to previous draw Performed By: #### 3 4820, 53149 #### [facility] [address] [place] [address], [facility] MCH (RBC) [Entitic mass] 28.1 pg Normal 27.0-33.0 The [facility] Comment on above: Order Comment: No: D o not add to previous draw Performed By: #### 3 520, 49031 #### [facility] [address] [place] [address], [facility] MCHC (RBC) [Mass/Vol] 30.7 g/dL Low 32.0-35.0 The [facility] Comment on above: Order Comment: No: D o not add to previous draw Performed By: #### 3 5199, 29054 #### [facility] [address] [facility] [address], [facility] MCV (RBC) [Entitic vol] 91.5 fL Normal 82.0-98.0 The [facility] Comment on above: Order Comment: No: D o not add to previous draw Performed By: #### 3 5199, 76542 #### [facility] [address] [facility] [place] [address], [facility] Nucleated RBC/100 WBC (Bld) [Ratio] 0 % Normal 0-0 The [facility] Comment on above: Order Comment: No: D o not add to previous draw Performed By: #### 3 5199, 67325 #### [facility] [address] [facility] [place] [address], [facility] PLAT CNT 219 10*3/uL Normal 150-400 [facility] Comment on above: Order Comment: No: D o not add to previous draw Performed By: #### 3 5199, 51410 #### [facility] [address] [facility] [place] [address], [facility] RBC (Bld) [#/Vol] 3.77 10*6/uL Low 3.80-5.00 The [facility] Comment on above: Order Comment: No: D o not add to previous draw Performed By: #### 3 5199, 30345 #### [facility] [address] [place] [address], [facility] WBC (Bld) [#/Vol] 13.64 10*3/uL High 4.00-10.60 The [facility] Comment on above: Order Comment: No: D o not add to previous draw Performed By: #### 3 5200, 96383 #### [facility] [address] [place] [address], [facility] HEMOGLOBIN A1Con 11-02-2021 Glucose [Moles/Vol] 140 mmol/L Normal [facility] Comment on above: Order Comment: No: D o not add to previous draw Performed By: #### 3 1791 #### [facility] [address] [place] [address], [facility] HbA1c (Bld) [Mass fraction] 6.5 % High 4.0-6.0 The [facility] Comment on above: Order Comment: No: D o not add to previous draw Performed By: #### 3 1791 #### [facility] [address] [place] [address], [facility] LIPID PROFILEon 11-02-2021 Cholesterol [Mass/Vol] 171 mg/dL Normal 120-200 Th [facility] Comment on above: Order Comment: No: D o not add to previous draw Result Comment: CHOL ESTEROL REFERENCE RANGE: 20 YEARS AND OLDER CARDIOVASCULAR RISK Less than 200 mg/dl Low Risk 200 to 239 mg/dl Borderline Risk 240 mg/dl and greater High Risk Performed By: #### 3 5200, 65887 #### [facility] [address] [place] [address], [facility] Cholesterol in HDL [Mass/Vol] 57 mg/dL Normal 23-92 The [facility] Comment on above: Order Comment: No: D o not add to previous draw Result Comment: Slig ht variation in normal range could be due to gender and/or age. HDL CHOLESTEROL REFERENCE RANGE: 20 years and older Cardiovascular Risk > or =60 mg/dL Desirable 40 TO 59 mg/dL Low Risk <40 mg/dL High Risk Performed By: #### 3 5200, 10455 #### [facility] [address] [place] [address], [facility] Cholesterol in LDL [Mass/Vol] 89 mg/dL Normal 0-130 [facility] Comment on above: Order Comment: No: D o not add to previous draw Result Comment: LDL IS A CALCULATION LDL IS ONLY VALID IF THE TRIG IS LESS THAN 400. Performed By: #### 3 5200, 29089 #### [facility] [address] [place] [address], [facility] Cholesterol.total/Chol esterol in HDL [Mass ratio] 3.0 {ratio} Normal .0-4.5 The [facility] Comment on above: Order Comment: No: D o not add to previous draw Performed By: #### 3 5200, 97045 #### [facility] [address] [place] [address], [facility] NON-HDL CHOLESTEROL 114 mg/dL Normal [facility] Comment on above: Order Comment: No: D o not add to previous draw Performed By: #### 3 5200, 08880 #### [facility] [address] [place] [address], [facility] Triglyceride [Mass/Vol] 124 mg/dL Normal 40-149 The [facility] Comment on above: Order Comment: No: D o not add to previous draw Result Comment: TRIG LYCERIDE REFERENCE RANGE: 20 YEARS AND OLDER CARDIOVASCULAR RISK LESS THAN 150 mg/dl LOW RISK 150 TO 199 mg/dl BORDERLINE RISK 200 mg/dl AND GREATER HIGH RISK Performed By: #### 3 5200, 64828 #### [facility] [address] [place] [address], [facility] VLDL CHOL 25 mg/dL Normal 0-40 [facility] Comment on above: Order Comment: No: D o not add to previous draw Performed By: #### 3 5200, 92949 #### [facility] [address] [place] [address], [facility] TROPONIN-Ion 11-02-2021 Troponin I.cardiac [Mass/Vol] 0.14 ng/mL Critically high 0.00-0.04 The [facility] Comment on above: Result Comment: M-LA EVIOUS CRITICAL RESULT REFERENCE RANGES: 0.00 - 0.04 ng/ml NORMAL 0.05 - 0.50 ng/ml INDETERMINATE > 0.50 ng/ml CONSISTENT WITH AN M.I. Performed By: #### 3 5200, 83850 #### [facility] [address] Troponin I.cardiac [Mass/Vol] 0.19 ng/mL Critically high 0.00-0.04 The [facility] Comment on above: Order Comment: No: D o not add to previous draw Result Comment: M-LA EVIOUS CRITICAL RESULT REFERENCE RANGES: 0.00 - 0.04 ng/ml NORMAL 0.05 - 0.50 ng/ml INDETERMINATE > 0.50 ng/ml CONSISTENT WITH AN M.I. Performed By: #### 3 5200 #### [facility] [address] [place] [address], [facility] TYPE AND SCREENon 11-02-2021 ABO INTERPRETATION O Normal The [facility] Comment on above: Performed By: #### 3 5200, 00304 #### [facility] [address] [place] [address], [facility] RH INTERPRETATION Positive Normal The [facility] Comment on above: Performed By: #### 3 5200, 03913 #### [facility] [address] [place] [address], [facility] UFH HEPARIN ASSAYon 11-03-19 22 UNFRACTIONATED HEPARIN 0.76 IU/mL High 0.30-0.70 Th e [facility] Comment on above: Result Comment: Clare roxaban and Apixaban will interfere with the anti Xa assay used to monitor UFH and LMWH. Performed By: #### 3 5200, 67038 #### [facility] [address] UNFRACTIONATED HEPARIN 0.96 IU/mL Critically high 0.30-0.7 0 The [facility] Comment on above: Result Comment: Resu lt checked and called. Accurately read back by Kathy Suárez RN at 0548 Rivaroxaban and Apixaban will interfere with the anti Xa assay used to monitor UFH and LMWH. Performed By: #### 3 0477 #### [facility] [address] [facility] APTTon 11-01-2021 aPTT Coag (Bld) [Time] 28.6 s Normal 25.0-35.0 Th e [facility] Comment on above: Order Comment: No: D [...] THIS PURPOSE. Performed By: #### 3 5200, 35534 #### [facility] [address] [place] [address], [facility] BNPon 11-01-2021 Natriuretic peptide B (Bld) [Mass/Vol] 9643.0 pg/mL Critically high <=900.0 [facility] Comment on above: Performed By: #### C MP, BNP, HSTROPN ####[facility] Y[address] [place], [place] [address]Px. Nahed Yañez BNP (B-TYPE NATRIURETIC PEPT AYLEEN)on 11-01-2021 Natriuretic peptide B (Bld) [Mass/Vol] 768 pg/mL High 0-100 The [facility] Comment on above: Order Comment: No: D o not add to previous draw Result Comment: Give n the appropriate clinical setting a BNP result of >100 pg/mL indicates congestive heart failure. Performed By: #### 8 5123 #### [facility] [address] [place] [address], [facility] CBC AUTO DIFFon 11-01-2021 BASO # 0.0 103/ul Normal 0.0-0.1 The [facility] Comment on above: Performed By: #### C BC ####[facility] [address] [place], [place] [address]Dr. Nahed Yañez Basophils/100 WBC (Bld) 0.1 % Critically low 0.2-2.0 The [facility] Comment on above: Performed By: #### C BC ####[facility] [address] [place], [place] [address]Dr. Nahed Yañez EO # 0.0 103/ul Normal 0.0-0.7 The [facility] Comment on above: Performed By: #### C BC ####[facility] [address] [place], [place] [address]Dr. Nahed Yañez Eosinophils/100 WBC (Bld) 0.0 % Critically low 0.9-7.0 The [facility] Comment on above: Performed By: #### C BC ####[facility] Rx[address]fwupsx[address] [place], [place] [address]Dr. Nahed Yañez Erythrocyte distribution width (RBC) [Ratio] 14.7 % Normal 11.0-15.0 [facility] Comment on above: Performed By: #### C BC ####[facility] Bin[address]nzriv[address] [place], [place] [address]Dr. Nahed Yañez Hematocrit (Bld) [Volume fraction] 36.1 % Normal 36.0-48.0 The [facility] Comment on above: Performed By: #### C BC ####[facility] [address] [place], [place] [address]Dr. Nahed Yañez Hemoglobin (Bld) [Mass/Vol] 11.1 g/dL Critically low 12.0-16.0 The [facility] Comment on above: Result Comment: IV a ntibiotics Performed By: #### C BC ####[facility] [address] [place], [place] [address]Dr. Nahed Yañez IG # 0.09 10e3/ul Critically high 0.00-0.03 [facility] Comment on above: Performed By: #### C BC ####[facility] [address] [place] [address]Dr. Nahed Yañez IG % 0.7 % Critically high 0.0-0.5 The [facility] Comment on above: Performed By: #### C BC ####[facility] Los[address] [place] [address]Dr. Nahed Yañez LYMPH # 0.6 103/ul Critically low 1.2-3.[address] [facility] Comment on above: Performed By: #### C BC ####[facility] [address]kw[address] [place] [address]Dr. Nahed Yañez Lymphocytes/100 WBC (Bld) 4.8 % Critically low 20.5-60.0 [facility] Comment on above: Performed By: #### C BC ####[facility] [address] [place] [id number]. Nahed Yañez MANUAL DIFF REQ NO Normal The [facility] Comment on above: Performed By: #### C BC ####[facility] Yeteokalrj[address] [place] [id number]. Nahed Yañez MCH (RBC) [Entitic mass] 28.2 pg Normal 26.7-34.0 [facility] Comment on above: Performed By: #### C BC ####[facility] Fyaiukucyq6574 [place] [id number]. Nahed Yañez MCHC (RBC) [Mass/Vol] 30.7 g/dL Normal 29.9-35.2 The [facility] Comment on above: Performed By: #### C BC ####[facility] Hpvfiocumu3029 [place] [id number]. Nahed Yañez MCV (RBC) [Entitic vol] 91.9 fL Normal 81.0-99.0 The [facility] Comment on above: Performed By: #### C BC ####[facility] Ihoevrckkh0632 [place] [id number]. Nahed Yañez MONO # 0.2 103/ul Critically low 0.3-0.[address] [facility] Comment on above: Performed By: #### C BC ####[facility] Magdvxenrt0765 [place] [id number]. Nahed Yañez Monocytes/100 WBC (Bld) 1.7 % Normal 1.7-12.0 The [facility] Comment on above: Performed By: #### C BC ####[facility] Fcszsrbsye4781 [place] [id number]. Nahed Yañez NEUT # 11.2 103/ul Critically high 1.4-6.5 The [facility] Comment on above: Performed By: #### C BC ####[facility] Zwrakwgmqk85[address] [place] [address]Dr. Nahed Yañez Neutrophils/100 WBC (Bld) 92.7 % Critically high 43.0-75.0 The [facility] Comment on above: Performed By: #### C BC ####[facility] Aqxrcdsidb23[address] [place] [address]Dr. Nahed Yañez Platelet mean volume (Bld) [Entitic vol] 11.1 fL Normal 9.5-13.5 The [facility] Comment on above: Performed By: #### C BC ####[facility] Ywfkxdvtvo5[address] [place] [address]Dr. Nahed Yañez PLT 213 103/ul Normal 150-450 The [facility] Comment on above: Performed By: #### C BC ####[facility] Zbikenssue[address] [place] [address]Dr. Nahed Yañez RBC 3.93 106/ul Critically low 4.20-5.40 The [facility] Comment on above: Performed By: #### C BC ####[facility] Sxgdwtruyx2886 [place] [id number]. Nahed Yañez WBC 12.0 103/ul Critically high 4.0-11.0 The [facility] Comment on above: Performed By: #### C BC ####[facility] Ombxdpyidu7[address] [place] [phone]. Nahed Yañez CBC W/DIFFon 11-01-2021 ABS IMM GRANS 0.2 10*3/uL Normal 0.0-0.2 The [facility] Comment on above: Order Comment: No: D o not add to previous draw Performed By: #### 3 5200, 75309 #### [facility] [address] [place] [address], [facility] ABS NEUTROPHILS 12.5 10*3/uL High 1.6-7.6 The [facility] Comment on above: Order Comment: No: D o not add to previous draw Performed By: #### 3 5199, 08132 #### [facility] [address] [place] [address], [facility] Basophils (Bld) [#/Vol] 0.0 10*3/uL Normal 0.0-0.2 The [facility] Comment on above: Order Comment: No: D o not add to previous draw Performed By: #### 3 5199, 98841 #### [facility] [address] [place] [address], [facility] Basophils/100 WBC (Bld) 0.0 % Normal 0.0-1.0 The [facility] Comment on above: Order Comment: No: D o not add to previous draw Performed By: #### 3 5199, 85471 #### [facility] [address] [place] [address], [facility] Eosinophils (Bld) [#/Vol] 0.0 10*3/uL Normal 0.0-0.5 The [facility] Comment on above: Order Comment: No: D o not add to previous draw Performed By: #### 3 5199, 34386 #### [facility] [address] [place] [address], [place] Eosinophils/100 WBC (Bld) 0.0 % Normal 0.0-6.0 The [facility] Comment on above: Order Comment: No: D o not add to previous draw Performed By: #### 3 5199, 07782 #### [facility] [address] [place] [address], [place] Erythrocyte distribution width (RBC) [Ratio] 14.6 % Normal 11.5-15.0 The [facility] Comment on above: Order Comment: No: D o not add to previous draw Performed By: #### 3 5199, 94270 #### [facility] [address] [place] [address], [facility] Hematocrit (Bld) [Volume fraction] 36.6 % Normal 36.0-45.0 The [facility] Comment on above: Order Comment: No: D o not add to previous draw Performed By: #### 3 5199, 27304 #### [facility] [address] [place] [address], [facility] Hemoglobin (Bld) [Mass/Vol] 11.4 g/dL Low 12.0-15.0 The [facility] Comment on above: Order Comment: No: D o not add to previous draw Performed By: #### 3 5199, 71758 #### [facility] [address] [place] [address], [facility] IMMATURE GRANS 1.2 % High 0.0-1.0 The [facility] Comment on above: Order Comment: No: D o not add to previous draw Performed By: #### 3 5199, 68118 #### [facility] [address] [place] [address], [facility] Lymphocytes (Bld) [#/Vol] 0.6 10*3/uL Low 1.2-4.0 The [facility] Comment on above: Order Comment: No: D o not add to previous draw Performed By: #### 3 5199, 17460 #### [facility] [address] [place] [id number], [place] Lymphocytes/100 WBC (Bld) 4.2 % Low 20.0-45.0 The [facility] Comment on above: Order Comment: No: D o not add to previous draw Performed By: #### 3 5199, 23854 #### [facility] [address] [place] [address], [facility] MCH (RBC) [Entitic mass] 28.2 pg Normal 27.0-33.0 The [facility] Comment on above: Order Comment: No: D o not add to previous draw Performed By: #### 3 0, 88336 #### [facility] [address] [place] [address], [facility] MCHC (RBC) [Mass/Vol] 31.1 g/dL Low 32.0-35.0 The [facility] Comment on above: Order Comment: No: D o not add to previous draw Performed By: #### 3 5199, 10626 #### [facility] [address] [address], [facility] MCV (RBC) [Entitic vol] 90.6 fL Normal 82.0-98.0 The [facility] Comment on above: Order Comment: No: D o not add to previous draw Performed By: #### 3 5199, 01785 #### [facility] [address] [place] [address], [facility] Monocytes (Bld) [#/Vol] 0.5 10*3/uL Normal 0.1-1.0 [facility] Comment on above: Order Comment: No: D o not add to previous draw Performed By: #### 3 5199, 27666 #### [facility] [address] [place] [address], [facility] MONOS 3.3 % Low 5.0-12.0 The [facility] Comment on above: Order Comment: No: D o not add to previous draw Performed By: #### 3 5199, 07671 #### [facility] [address] [place] [address], [facility] Neutrophils/100 WBC (Bld) 91.3 % High 40.0-72.0 The [facility] Comment on above: Order Comment: No: D o not add to previous draw Performed By: #### 3 5200, 50346 #### [facility] [address] [place] [address], [facility] Nucleated RBC/100 WBC (Bld) [Ratio] 0 % Normal 0-0 The [facility] Comment on above: Order Comment: No: D o not add to previous draw Performed By: #### 3 5200, 35834 #### [facility] [address] [place] [id number], [facility] PLAT CNT 224 10*3/uL Normal 150-400 The [facility] Comment on above: Order Comment: No: D o not add to previous draw Performed By: #### 3 5200, 44565 #### [facility] [address] [address], [facility] RBC (Bld) [#/Vol] 4.04 10*6/uL Normal 3.80-5.00 [facility] Comment on above: Order Comment: No: D o not add to previous draw Performed By: #### 3 5200, 43262 #### [facility] [address] [place] [address], [facility] WBC (Bld) [#/Vol] 13.70 10*3/uL High 4.00-10.60 [facility] Comment on above: Order Comment: No: D o not add to previous draw Performed By: #### 3 5200, 41935 #### [facility] [address] [place] [id number], [facility] COMP METABOLIC PANELon 11-01 Albumin [Mass/Vol] 3.7 g/dL Normal 3.5-5.7 The [facility] Comment on above: Order Comment: No: D o not add to previous draw Performed By: #### 0 0121, 08911, 56135 #### [facility] [address] [place] [id number], [facility] ALKALINE PHOSPH 54 IU/L Normal 34-104 The [facility] Comment on above: Order Comment: No: D o not add to previous draw Performed By: #### 0 0121, 25608, 34473 #### [facility] [address] [place] [address], [place] ALT [Catalytic activity/Vol] 12 U/L Normal 7-52 The [facility] Comment on above: Order Comment: No: D o not add to previous draw Performed By: #### 0 0121, 15514, 79183 #### [facility] [address] [place] [address], [place] AST [Catalytic activity/Vol] 17 U/L Normal 13-39 The [facility] Comment on above: Order Comment: No: D o not add to previous draw Performed By: #### 0 0121, 52342, 99339 #### [facility] [address] [place] [address], [place] Bilirubin [Mass/Vol] 0.3 mg/dL Normal 0.3-1.0 [facility] Comment on above: Order Comment: No: D o not add to previous draw Performed By: #### 0 0121, 20743, 46637 #### [facility] [address] [place] [address], [place] Calcium [Mass/Vol] 9.4 mg/dL Normal 8.6-10.3 [facility] Comment on above: Order Comment: No: D o not add to previous draw Performed By: #### 0 0121, 60295, 50568 #### [facility] [address] [place] [address], [place] Chloride [Moles/Vol] 100 mmol/L Normal 98-107 The [facility] Comment on above: Order Comment: No: D o not add to previous draw Performed By: #### 0 0121, 69310, 04339 #### [facility] [address] [place] [address], [place] CO2 [Moles/Vol] 29 mmol/L Normal 21-31 The [facility] Comment on above: Order Comment: No: D o not add to previous draw Performed By: #### 0 0121, 52592, 22457 #### [facility] [address] [place] [address], [place] Creatinine [Mass/Vol] 1.04 mg/dL Normal 0.60-1.20 [facility] Comment on above: Order Comment: No: D o not add to previous draw Performed By: #### 0 0121, 20913, 98260 #### [facility] [address] [place] [address], [place] eGFR- non- 54 ml/min/1.73sq m Abnormal >60 [facility] Comment on above: Order Comment: No: D o not add to previous draw Performed By: #### 0 0121, 57534, 60158 #### [facility] [address] [place] [address], [place] GFR/1.73 sq M.predicted among blacks MDRD (S/P/Bld) [Vol rate/Area] mL/min/{1.73_m2} Normal >60 [facility] Comment on above: Order Comment: No: D o not add to previous draw Performed By: #### 0 0121, 29848, 58076 #### [facility] [address] [place] [address], [place] Glucose [Mass/Vol] 239 mg/dL High 70-100 The [facility] Comment on above: Order Comment: No: D o not add to previous draw Performed By: #### 0 0121, 67194, 07514 #### [facility] [address] [place] [address], [place] Potassium [Moles/Vol] 4.3 mmol/L Normal 3.5-5.1 [facility] Comment on above: Order Comment: No: D o not add to previous draw Performed By: #### 0 0121, 48919, 07851 #### [facility] [address] [place] [address], [place] Protein [Mass/Vol] 5.6 g/dL Low 6.0-8.3 [facility] Comment on above: Order Comment: No: D o not add to previous draw Performed By: #### 0 0121, 46712, 76785 #### [facility] [address] [place] [address], [facility] Sodium [Moles/Vol] 139 mmol/L Normal 136-145 [facility] Comment on above: Order Comment: No: D o not add to previous draw Performed By: #### 0 0121, 84937, 90008 #### [facility] [address] [place] [address], [facility] Urea nitrogen [Mass/Vol] 24 mg/dL Normal 7-25 The [facility] Comment on above: Order Comment: No: D o not add to previous draw Performed By: #### 0 0121, 08417, 48469 #### [facility] [address] [place] [address], [facility] MAGNESIUM BLOODon 11-01-2021 Magnesium [Mass/Vol] 2.0 mg/dL Normal 1.9-2.7 [facility] Comment on above: Order Comment: No: D o not add to previous draw Performed By: #### 0 0121, 16397, 58373 #### [facility] [address] [place] [address], [facility] PROF 14(COMP METB)on 022 Albumin [Mass/Vol] 3.1 g/dL Critically low 3.4-5.0 [facility] Comment on above: Performed By: #### C MP, BNP, HSTROPN ####[facility] Nxgvlfgzbv9730 [place] [address]DrShaun Yañez Albumin/Globulin [Mass ratio] 1.0 {ratio} Normal [facility] Comment on above: Performed By: #### C MP, BNP, HSTROPN ####[facility] Loyuchzjiw8589 [place] [address]DrShaun Yañez ALP [Catalytic activity/Vol] 56 U/L Normal 46-116 [facility] Comment on above: Performed By: #### C MP, BNP, HSTROPN ####[facility] Cvrynizoyl1460 [place] [address]Dr. Nahed Yañez ALT [Catalytic activity/Vol] 19 U/L Normal 14-59 [facility] Comment on above: Performed By: #### C MP, BNP, HSTROPN ####[facility] Lttjjpnsso2873 [place] [address]Dr. Nahed Yañez Anion gap [Moles/Vol] 14.3 mmol/L Normal Th e [facility] Comment on above: Performed By: #### C MP, BNP, HSTROPN ####[facility] Dotooahnzo[address] [place], [place] [address]Dr. Nahed Yañez AST [Catalytic activity/Vol] 18 U/L Normal 15-37 [facility] Comment on above: Performed By: #### C MP, BNP, HSTROPN ####[facility] Rwtlijsbgk9222 [place] [address]Dr. Nahed Yañez Bilirubin [Mass/Vol] 0.4 mg/dL Normal 0.2-1.0 [facility] Comment on above: Performed By: #### C MP, BNP, HSTROPN ####[facility] Xsjvatpyxe7355 [place] [address]Dr. Nahed Yañez Calcium [Mass/Vol] 9.3 mg/dL Normal 8.5-10.1 [facility] Comment on above: Performed By: #### C MP, BNP, HSTROPN ####[facility] Ubkfjsawip57[address] [place] [address]Dr. Nahed Yañez Chloride [Moles/Vol] 102 mmol/L Normal 98-107 [facility] Comment on above: Performed By: #### C MP, BNP, HSTROPN ####[facility] Blzlzenwhn[address] [place] [address]Dr. Nahed Yañez CO2 [Moles/Vol] 27.1 mmol/L Normal 21.0-32.0 [facility] Comment on above: Performed By: #### C MP, BNP, HSTROPN ####[facility] Ggiqoptxss4805 [place] [address]Dr. Nahed Yañez Creatinine [Mass/Vol] 1.25 mg/dL Critically high 0.55-1.02 [facility] Comment on above: Performed By: #### C MP, BNP, HSTROPN ####[facility] Pepqcrxzsd0816 [place] [address]Dr. Nahed Yañez EGFR-AF SURINAMESE 53 mL/min/1.73m2 Critically low >=60 [facility] Comment on above: Performed By: #### C MP, BNP, HSTROPN ####[facility] [address] [place], [place] [address]Dr. Nahed Yañez EGFR-NON AF SURINAMESE 44 mL/min/1.73m2 Critically low >=60 [facility] Comment on above: Performed By: #### C MP, BNP, HSTROPN ####[facility] [address]uree[address] [place], [place] [address]Dr. Nahed Yañez Globulin (S) [Mass/Vol] 3.2 g/dL Normal [facility] Comment on above: Performed By: #### C MP, BNP, HSTROPN ####[facility] [address] [place], [place] [address]Dr. Nahed Yañez Glucose [Mass/Vol] 248 mg/dL Critically high 74-106 T [facility] Comment on above: Performed By: #### C MP, BNP, HSTROPN ####[facility] [address] [place], [place] [address]Dr. Nahed Yañez Potassium [Moles/Vol] 3.4 mmol/L Critically low 3.5-5.1 [facility] Comment on above: Performed By: #### C MP, BNP, HSTROPN ####[facility] Beg[address]jkju[address] [place], [place] [address]Dr. Nahed Yañez Protein [Mass/Vol] 6.3 g/dL Critically low 6.4-8.2 Th [facility] Comment on above: Performed By: #### C MP, BNP, HSTROPN ####[facility] Iexfgxqihu9918 [place] [id number]. Nahed Yañez Sodium [Moles/Vol] 140 mmol/L Normal 136-145 [facility] Comment on above: Performed By: #### C MP, BNP, HSTROPN ####[facility] Daruirljtk1169 [place] [id number]. Nahed Yañez Urea nitrogen [Mass/Vol] 18.0 mg/dL Normal 7.0-18.0 [facility] Comment on above: Performed By: #### C MP, BNP, HSTROPN ####[facility] Hacdjspwmb1638 [place] [address]Dr. Nahed Yañez Urea nitrogen/Creatinine [Mass ratio] 14.4 mg/mg Normal [facility] Comment on above: Performed By: #### C MP, BNP, HSTROPN ####[facility] Gqygnemuzy1574 [place] [address]Dr. Nahed Otilio PROTHROMBIN TIMEon 2 INR Coag (PPP) [Relative time] 1.06 {INR} Normal 0.91-1.16 [facility] Comment on [...] 1995;108:[id number]. Performed By: #### 5 6101 #### [facility] [address] [place] [address], [facility] PT Coag (PPP) [Time] 13.8 s Normal 12.3-14.8 [facility] Comment on above: Order Comment: No: D o not add to previous draw Result Comment: ALL RESULTS MUST BE INTERPRETED WITH RESPECT TO BLOOD DRAWING ARTIFACT OR DILUTION ERROR OF ANTICOAGULANT AT THE TIME OF SAMPLING. Performed By: #### 5 6101 #### [facility] [address] [place] [address], [facility] TROPONIN, HIGH SENSITIVITYon 11-01-2021 HSTROP 1684.4 pg/mL Critically high 4.0-51.3 [facility] Comment on above: Result Comment: CUT- OFF POINTS HAVE BEEN ESTABLISHED BASED ON THE FOURTH UNIVERSAL DEFINITIONS OF MYOCARDIALINFARCTION. THE UPPER REFERENCE LIMIT (URL) OF TROPONIN, DEFINED THE 99TH PERCENTILE OFcTnI DISTRIBUTION IN A REFERENCE POPULATION, HAS BEEN CONFIRMED THE DECISION THRESHOLDFOR [place] DIAGNOSIS. Performed By: #### C MP, BNP, HSTROPN ####[facility] Jxnozlsmcm9924 [place] [address]DrShaun Yañez TROPONIN-Ion 11-01-2021 Troponin I.cardiac [Mass/Vol] 0.22 ng/mL Critically high 0.00-0.04 [facility] Comment on above: Order Comment: No: D o not add to previous draw Result Comment: M-TR OPONIN INITIAL CRITICAL HIGH; RESPUN AND RETESTED M-CRITICAL RESULT(S) REVIEWED, CALLED TO AND READ BACK BY Kathy Suárez RN at 2205. REFERENCE RANGES: 0.00 - 0.04 ng/ml NORMAL 0.05 - 0.50 ng/ml INDETERMINATE > 0.50 ng/ml CONSISTENT WITH AN M.I. Performed By: #### 0 0121, 22833, 73796 #### [facility] [address] [place] [address], [facility] UFH HEPARIN ASSAYon 06-21-20 22 UNFRACTIONATED HEPARIN 0.55 IU/mL Normal 0.30-0.70 Th e [facility] Comment on above: Result Comment: Clare roxaban and Apixaban will interfere with the anti Xa assay used to monitor UFH and LMWH. Performed By: #### 3 5200, 75249 #### [facility] [address] [place] [address], [facility] BLOOD GASES BTYon 10-31-2021 02 MODE ROOM AIR Normal [facility] Comment on above: Performed By: #### A BG ####[facility] [address]od[address] [place] [address]Dr. Nahed Yañez ALLENS TEST Positive Normal [facility] Comment on above: Performed By: #### A BG ####[facility] Yikcshzrqs9044 [place] [address]Dr. Nahed Yañez Base excess Calc (Bld) [Moles/Vol] 3.5 mmol/L Critically high -2.0-2.0 [facility] Comment on above: Performed By: #### A BG ####[facility] Boqznshlsz7208 [place] [address]Dr. Nahed Yañez BIPAP PRESSURE Normal [facility] Comment on above: Performed By: #### A BG ####[facility] Qhccboyvqv4655 [place] [address]Dr. Nahed Yañez CO2 [Moles/Vol] 56.3 mmol/L Critically high 23.0-28.0 [facility] Comment on above: Performed By: #### A BG ####[facility] Qtzpogrnxb9526 [place] [address]Dr. Nahed Yañez CPAP Normal [facility] Comment on above: Performed By: #### A BG ####[facility] Qbsykjknxv9124 [place] [address]Dr. Nahed Yañez FIO2 Normal [facility] Comment on above: Performed By: #### A BG ####[facility] Wlkaygzigf30[address] [place] [address]Dr. Nahed Yañez HCO3 (Bld) [Moles/Vol] 26.8 mmol/L Critically high 22.0-26 .0 [facility] Comment on above: Performed By: #### A BG ####[facility] [address] [place], [place] [address]Dr. Nahed Yañez LPM Normal [facility] Comment on above: Performed By: #### A BG ####[facility] [address] [place], [place] [address]Dr. Nahed Yañez MINUTE VOLUME Normal [facility] Comment on above: Performed By: #### A BG ####[facility] [address] [place], [place] [address]Dr. Nahed Yañez Oxygen (Bld) [Partial pressure] 51.8 mm[Hg] Critically low 80.0-100.0 [facility] Comment on above: Performed By: #### A BG ####[facility] [address] [place], [place] [address]Dr. Nahed Yañez Oxygen saturation in Blood 86.3 % Critically low 95.0-100.0 [facility] Comment on above: Performed By: #### A BG ####[facility] [address] [place], [place] [address]Dr. Nahed Yañez PCO2 43.8 mmHg Normal 35.0-45.0 [facility] Comment on above: Performed By: #### A BG ####[facility] Sylgodydci[address] [place], [place] [address]Dr. Nahed Yañez PEEP Normal [facility] Comment on above: Performed By: #### A BG ####[facility] Revhwqpnuj2680[address] [place], [place] [address]Dr. Nahed Yañez pH (Bld) 7.415 [pH] Normal 7.350-7.450 [facility] Comment on above: Performed By: #### A BG ####[facility] Echnvvlrls01[address] [place], [place] [address]Dr. Nahed Yañez PIP [facility] Comment on above: Performed By: #### A BG ####[facility] Awsloxfeya8[address] [place], [place] [address]Dr. Nahed Yañez PS [facility] Comment on above: Performed By: #### A BG ####[facility] Orllsmnttu[address] [place] [address]Dr. Nahed Yañez PUNCTURE SITE RR Normal [facility] Comment on above: Performed By: #### A BG ####[facility] Hzftjjbpay300[address] [place] [address]Dr. Nahed Yañez RATE Normal [facility] Comment on above: Performed By: #### A BG ####[facility] Imzqttiwit74[address] [place] [address]Dr. Nahed Yañez VENT MODE Normal [facility] Comment on above: Performed By: #### A BG ####[facility] Gqptgnbnaz8052 [place] [address]Dr. Nahed Yañez VT [facility] Comment on above: Performed By: #### A BG ####[facility] Rajchawnda4028 [place] [address]Dr. Nahed Yañez BNPon 2 Natriuretic peptide B (Bld) [Mass/Vol] 04826.0 pg/mL Critically high <=900.0 [facility] Comment on above: Performed By: #### T 4, TSH, BNP, CMADM ####[facility] Qbzdbsrbgz[address] [place], [place] [address]Dr. Nahed Yañez CARDIAC FRANCISCO 3-6on 2 CK [Catalytic activity/Vol] 91 U/L Normal 26-192 [facility] Comment on above: Performed By: #### C MREP ####[facility] Xhfnylhdqw12[address] [place] [address]Dr. Nahed Yañez CK.MB [Mass/Vol] 7.32 ng/mL Critically high <=3.60 [facility] Comment on above: Result Comment: test repeated critical value verified Performed By: #### C MREP ####[facility] Hcdowbkiub9[address] [place], [place] [address]Dr. Nahed Yañez HSTROP 2823.1 pg/mL Critically high 4.0-51.3 [facility] Comment on above: Result Comment: CUT- OFF POINTS HAVE BEEN ESTABLISHED BASED ON THE FOURTH UNIVERSAL DEFINITIONS OF MYOCARDIALINFARCTION. THE UPPER REFERENCE LIMIT (URL) OF TROPONIN, DEFINED THE 99TH PERCENTILE OFcTnI DISTRIBUTION IN A REFERENCE POPULATION, HAS BEEN CONFIRMED THE DECISION THRESHOLDFOR [place] DIAGNOSIS.test repeated critical value verified Performed By: #### C MREP ####[facility] Rhfnkrppys23[address] [place] [address]Dr. Nahed Yañez CARDIAC FRANCISCO ADMITon 022 CK [Catalytic activity/Vol] 85 U/L Normal 26-192 [facility] Comment on above: Performed By: #### T 4, TSH, BNP, CMADM ####[facility] Zgjgdyyban58[address] [place] [address]Dr. Nahed Yañez CK.MB [Mass/Vol] 6.44 ng/mL Critically high <=3.60 [facility] Comment on above: Performed By: #### T 4, TSH, BNP, CMADM ####[facility] Towwhtdjej[address] [place] [address]Dr. Nahed Yañez HSTROP 3194.8 pg/mL Critically high 4.0-51.3 [facility] Comment on above: Result Comment: CUT- OFF POINTS HAVE BEEN ESTABLISHED BASED ON THE FOURTH UNIVERSAL DEFINITIONS OF MYOCARDIALINFARCTION. THE UPPER REFERENCE LIMIT (URL) OF TROPONIN, DEFINED THE 99TH PERCENTILE OFcTnI DISTRIBUTION IN A REFERENCE POPULATION, HAS BEEN CONFIRMED THE DECISION THRESHOLDFOR [place] DIAGNOSIS. Performed By: #### T 4, TSH, BNP, CMADM ####[facility] Muxbrfaxsb0266 [place] [address]Dr. Nahed Yañez ANDRE 57 ng/mL Normal 9-82 [facility] Comment on above: Performed By: #### T 4, TSH, BNP, CMADM ####[facility] Ghjznuiwkx7626 [place] [address]Dr. Nahed Yañez CBC AUTO DIFFon 10-31-2021 BASO # 0.0 103/ul Normal 0.0-0.1 [facility] Comment on above: Performed By: #### C BC ####[facility] Uowcqwglhv6948 [place] [address]Dr. Nahed Yañez Basophils/100 WBC (Bld) 0.2 % Normal 0.2-2.0 [facility] Comment on above: Performed By: #### C BC ####[facility] Mgycgeqddm50[address] [place], [place] [address]Dr. Nahed Yañez EO # 0.0 103/ul Normal 0.0-0.7 [facility] Comment on above: Performed By: #### C BC ####[facility] Sdaddqsndc1443[address] [place], [place] [address]Dr. Nahed Yañez Eosinophils/100 WBC (Bld) 0.1 % Critically low 0.9-7.0 [facility] Comment on above: Performed By: #### C BC ####[facility] Qrejztoprk3955[address] [place], [place] [address]Dr. Nahed Yañez Erythrocyte distribution width (RBC) [Ratio] 14.8 % Normal 11.0-15.0 [facility] Comment on above: Performed By: #### C BC ####[facility] Phtfafrhik3669[address] [place], [place] [address]Dr. Nahed Yañez Hematocrit (Bld) [Volume fraction] 44.4 % Normal 36.0-48.0 [facility] Comment on above: Performed By: #### C BC ####[facility] Kibfupmrfc3946[address] [place], [place] [address]Dr. Nahed Yañez Hemoglobin (Bld) [Mass/Vol] 14.1 g/dL Normal 12.0-16.0 [facility] Comment on above: Performed By: #### C BC ####[facility] Elfbvcbmjq3610[address] [place], [place] [address]DrShaun Yañez IG # 0.04 10e3/ul Critically high 0.00-0.03 [facility] Comment on above: Performed By: #### C BC ####[facility] Basqqblmky2820[address] [place], [place] [address]Dr. Nahed Yañez IG % 0.3 % Normal 0.0-0.5 [facility] Comment on above: Performed By: #### C BC ####[facility] Hgcwjeighb6593[address] [place], [place] [address]DrShaun Yañez LYMPH # 1.4 103/ul Normal 1.2-3.8 [facility] Comment on above: Performed By: #### C BC ####[facility] Xqzoyephic9087 [place] [address]Dr. Nahed Yañez Lymphocytes/100 WBC (Bld) 10.4 % Critically low 20.5-60.0 [facility] Comment on above: Performed By: #### C BC ####[facility] Smqgilmyii005[address] [place], [place] [address]Dr. Nahed Yañez MANUAL DIFF REQ NO Normal [facility] Comment on above: Performed By: #### C BC ####[facility] Mawtoaofqr5816 [place] [address]Dr. Nahed Yañez MCH (RBC) [Entitic mass] 28.1 pg Normal 26.7-34.0 [facility] Comment on above: Performed By: #### C BC ####[facility] Waebjhnbaw8466[address] [place], [place] [address]Dr. Nahed Yañez MCHC (RBC) [Mass/Vol] 31.8 g/dL Normal 29.9-35.2 [facility] Comment on above: Performed By: #### C BC ####[facility] Tdcazvnsgu4840[address] [place], [place] [address]Dr. Nahed Yañez MCV (RBC) [Entitic vol] 88.4 fL Normal 81.0-99.0 [facility] Comment on above: Performed By: #### C BC ####[facility] Ieftrqjkmh5[address] [place], [place] [address]Dr. Nahed Yañez MONO # 0.8 103/ul Normal 0.3-0.8 [facility] Comment on above: Performed By: #### C BC ####[facility] Cpqvdrgusg8726[address] [place], [place] [address]Dr. Nahed Yañez Monocytes/100 WBC (Bld) 6.0 % Normal 1.7-12.0 [facility] Comment on above: Performed By: #### C BC ####[facility] Avgguvjoej426[address] [place], [place] [address]Dr. Nahed Yañez NEUT # 10.9 103/ul Critically high 1.4-6.5 [facility] Comment on above: Performed By: #### C BC ####[facility] Qogxzddupu7859 [place] [address]Dr. Nahed Yañez Neutrophils/100 WBC (Bld) 83.0 % Critically high 43.0-75.0 [facility] Comment on above: Performed By: #### C BC ####[facility] Kidkhbnrjc0704 [place] [address]Dr. Nahed Yañez Platelet mean volume (Bld) [Entitic vol] 10.8 fL Normal 9.5-13.5 [facility] Comment on above: Performed By: #### C BC ####[facility] Tyfpnwxsvm5355[address] [place], [place] [address]Dr. Nahed Yañez PLT 402 103/ul Normal 150-450 [facility] Comment on above: Performed By: #### C BC ####[facility] Ptbcubyyyp1783[address] [place], [place] [address]Dr. Nahed Yañez RBC 5.02 106/ul Normal 4.20-5.40 [facility] Comment on above: Performed By: #### C BC ####[facility] Obqddbrxca1892[address] [place], [place] [address]Dr. Nahed Yañez WBC 13.1 103/ul Critically high 4.0-11.0 [facility] Comment on above: Performed By: #### C BC ####[facility] Jfycunuudx96[address] [place], [place] [address]Dr. Nahed Otilio CTA CHEST WO W CONon 022 CTA CHEST WO W CON Normal [facility] CULTURE BLOODon 10-31-2021 Microscopic examination of blood, culture Culture Observations: NO GROWTH AT 5 DAYS. Normal [facility] Comment on above: Performed By: #### B LDCX2 ####[facility] Lirxdfjwku58[address] [place] [address]Dr. Nahed Otilio Microscopic examination of blood, culture Culture Observations: NO GROWTH AT 5 DAYS. Normal [facility] Comment on above: Performed By: #### B LDCX1 ####[facility] Opxfnddmgc1867 [place] [address]Dr. Nahed Yañez Covid-19 PCR (CVDTB)on 10-13 SARS-CoV-2 (COVID-19) RNA MIRNA+probe Ql (Unsp spec) Not detected Normal NOT DETECTED [facility] Comment on above: Result Comment: When [...] for this test is supported by the [employer] of Health and Human Service's declaration that [...] be used). Performed By: #### C VDTB ####[facility] Ztysxvxqji0699[address] [place], [place] [address]Dr. Nahed Yañez ECHO LIMITED STUDYon 022 ECHO LIMITED STUDY Normal [facility] ER URINE PROFILEon 2 Bilirubin Ql (U) SMALL Abnormal NEGATIVE [facility] Comment on above: Performed By: #### YARELIS DOVE ####[facility] Gugoprssyd2354 [place] [address]Dr. Nahed Yañez Clarity (U) CLEAR Normal CLEAR [facility] Comment on above: Performed By: #### YARELIS DOVE ####[facility] Yvwbzbqupf1430[address] [place], [place] [address]Dr. Nahed Yañez Color (U) YELLOW Normal YELLOW [facility] Comment on above: Performed By: #### YARELIS DOVE ####[facility] Xdcnqexmsg[address] [place], [place] [address]Dr. Nahed OBRREGO A micrscopic examination will be performed if indicated. Normal [facility] Comment on above: Performed By: #### NUNU DOVERO ####[facility] Zpzxgsdkrs7150 [place] [address]Dr. Nahed Yañez Glucose Ql (U) Negative Normal NEGATIVE The [facility] Comment on above: Performed By: #### MYLA DOVEICRO ####[facility] Jifptfwvze4800 [place] [address]Dr. Nahed Yañez Hemoglobin Ql (U) TRACE-INTACT Abnormal NEGATIVE [facility] Comment on above: Performed By: #### NUNU DOVERO ####[facility] Wxhpdjpzvd7574[address] [place], [place] [address]Dr. Nahed Yañez Ketones Ql (U) 15 mg/dl Abnormal NEGATIVE [facility] Comment on above: Performed By: #### NUNU DOVERO ####[facility] Ylpgqinhjz6412[address] [place], [place] [address]Dr. Nahed Yañez LEUKOCYTES TRACE Abnormal NEGATIVE [facility] Comment on above: Performed By: #### NUNU DOVERO ####[facility] Ilxozsriuw1583[address] [place], [place] [address]Dr. Nahed Yañez Nitrite Ql (U) Negative Normal NEGATIVE [facility] Comment on above: Performed By: #### MYLA DOVEICRO ####[facility] Qdlffwujit8610 [place] [address]Dr. Nahed Yañez pH (U) 6.5 [pH] Normal 5-9 [facility] Comment on above: Performed By: #### NUNU DOVERO ####[facility] Wwpcmqagxc5067[address] [place], [place] [address]Dr. Nahed Yañez Protein (U) [Mass/Vol] 30 mg/dL Abnormal NEGAT JOSEPHINE/ TRACE [facility] Comment on above: Performed By: #### MYLA DOVEICRO ####[facility] Snfymahcxw5712[address] [place], [place] [address]Dr. Nahed Yañez SPEC GRAVITY 1.025 Normal 1.005-<=1.02 5 [facility] Comment on above: Performed By: #### YARELIS DOVE ####[facility] Sidktrjfzg[address] [place], [place] [address]Dr. Nahed Yañez UR MICRO IND INDICATED Normal [facility] Comment on above: Performed By: #### YARELIS DOVE ####[facility] Irenpdpbmo5440[address] [place], [place] [address]Dr. Nahed Yañez Urobilinogen Qn (U) 0.2 {Alem'U}/dL Normal 0.2 - 1. 0 [facility] Comment on above: Performed By: #### YARELIS DOVE ####[facility] Zjeffizkju4269[address] [place], [place] [address]Dr. Nahed Yañez INFLUENZA A AND B AGon 10-31 INFLUANEGH SEE BELOW Normal [facility] Comment on above: Result Comment: Nega tive for Flu A protein angiten. Infection due to Flu A cannot be ruled out. Flu A angiten in the sample may be below the detection limit of the test. Performed By: #### I NFLUAB ####[facility] Neablqesdp1823[address] [place], [place] [address]Dr. Nahed Yañez INFLUBNEGH SEE BELOW Normal [facility] Comment on above: Result Comment: Nega tive for Flu B protein antigen. Infection due to Flu B cannot be ruled out. Flu B antigen in the sample may be below the detection limit of the test. Performed By: #### I NFLUAB ####[facility] Zvaxtoucjx9059[address] [place], [place] [address]Dr. Nahed Yañez INFLUENZA A AG Negative Normal NEGATIVE SEE COMMENT [facility] Comment on above: Performed By: #### I NFLUAB ####[facility] Kuguzcugxr[address] [place], [place] [address]Dr. Nahed Yañez INFLUENZA B AG Negative Normal NEGATIVE SEE COMMENT [facility] Comment on above: Performed By: #### I NFLUAB ####[facility] Jieaulvgmf1358[address] [place], [place] [address]Dr. Nahed Yañez INTERNAL CONTROLS Within Normal Limits Normal Wi thin Normal Limits [facility] Comment on above: Performed By: #### I NFLUAB ####[facility] Yusxnxrsek0412 [place] [address]Dr. Nahed Yañez LACTATE/LACTIC ACIDon 2021 Lactate [Moles/Vol] 1.3 mmol/L Normal 0.4-1.9 [facility] Comment on above: Performed By: #### L ACT ####[facility] Ltzodeneum639[address] [place], [place] [address]Dr. Nahed Yañez PROF 14(COMP METB)on 022 Albumin [Mass/Vol] 4.3 g/dL Normal 3.4-5.0 [facility] Comment on above: Performed By: #### C MP ####[facility] Wfuyozthfo6092 [place] [address]Dr. Nahed Yañez Albumin/Globulin [Mass ratio] 1.2 {ratio} Normal [facility] Comment on above: Performed By: #### C MP ####[facility] Dyfkrwuhev3973[address] [place], [place] [address]Dr. Nahed Yañez ALP [Catalytic activity/Vol] 77 U/L Normal 46-116 [facility] Comment on above: Performed By: #### C MP ####[facility] Jkuhmxyzzg7188[address] [place], [place] [address]Dr. Nahed Yañez ALT [Catalytic activity/Vol] 25 U/L Normal 14-59 [facility] Comment on above: Performed By: #### C MP ####[facility] Uwpzsdiozo3462 [place] [address]Dr. Nahed Yañez Anion gap [Moles/Vol] 15.6 mmol/L Normal [facility] Comment on above: Performed By: #### C MP ####[facility] Kenjoorbuc3917[address] [place], [place] [address]Dr. Nahed Yañez AST [Catalytic activity/Vol] 26 U/L Normal 15-37 [facility] Comment on above: Performed By: #### C MP ####[facility] Tuvigzwkmo4136[address] [place], [place] [address]Dr. Nahed Yañez Bilirubin [Mass/Vol] 0.6 mg/dL Normal 0.2-1.0 [facility] Comment on above: Performed By: #### C MP ####[facility] Gtonbshdjx9709 [place] [address]Dr. Nahed Yañez Calcium [Mass/Vol] 10.0 mg/dL Normal 8.5-10.1 [facility] Comment on above: Performed By: #### C MP ####[facility] Lsmxzvkbyw5438 [place] [address]Dr. Nahed Yañez Chloride [Moles/Vol] 101 mmol/L Normal 98-107 [facility] Comment on above: Performed By: #### C MP ####[facility] Jnnbrrhrpp1654[address] [place], [place] [address]Dr. Nahed Yañez CO2 [Moles/Vol] 29.0 mmol/L Normal 21.0-32.0 [facility] Comment on above: Performed By: #### C MP ####[facility] Hqpgyfifsh2623[address] [place], [place] [address]Dr. Nahed Yañez Creatinine [Mass/Vol] 0.89 mg/dL Normal 0.55-1.02 [facility] Comment on above: Performed By: #### C MP ####[facility] Cjqzljivzo3233[address] [place], [place] [address]Dr. Nahed Yañez EGFR-AF SURINAMESE >60 Normal >=60 [facility] Comment on above: Performed By: #### C MP ####[facility] Icsvajoumu4330 [place] [address]Dr. Nahed Otilio EGFR-NON AF SURINAMESE >60 Normal >=60 [facility] Comment on above: Performed By: #### C MP ####[facility] Oyrpegvjjq1081 [place] [address]Dr. Nahed Otilio Globulin (S) [Mass/Vol] 3.7 g/dL Normal [facility] Comment on above: Performed By: #### C MP ####[facility] Eqpfelrdki8938[address] [place], [place] [address]Dr. Rosemarieashley Otilio Glucose [Mass/Vol] 182 mg/dL Critically high 74-106 [facility] Comment on above: Performed By: #### C MP ####[facility] Ixtyozvqgb9508 [place] [address]Dr. Nahed Yañez Potassium [Moles/Vol] 3.6 mmol/L Normal 3.5-5.1 [facility] Comment on above: Performed By: #### C MP ####[facility] Wgfujdselo[address] [place], [place] [address]Dr. Nahed Yañez Protein [Mass/Vol] 8.0 g/dL Normal 6.4-8.2 [facility] Comment on above: Performed By: #### C MP ####[facility] Wxhhspscvv8837[address] [place], [place] [address]Dr. Nahed Yañez Sodium [Moles/Vol] 142 mmol/L Normal 136-145 [facility] Comment on above: Performed By: #### C MP ####[facility] Twgqqbalnl2533[address] [place], [place] [address]Dr. Nahed Yañez Urea nitrogen [Mass/Vol] 8.0 mg/dL Normal 7.0-18.0 [facility] Comment on above: Performed By: #### C MP ####[facility] Kpcorywheb4872[address] [place], [place] [address]Dr. Nahed Yañez Urea nitrogen/Creatinine [Mass ratio] 9.0 mg/mg Normal [facility] Comment on above: Performed By: #### C MP ####[facility] Sauxqnillw4493[address] [place], [place] [address]Dr. Nahed Yañez T4on 10-31-2021 T4 [Mass/Vol] 8.10 ug/dL Normal 4.80-13.90 [facility] Comment on above: Performed By: #### T 4, TSH, BNP, CMADM ####[facility] Tmsblttwct4125[address] [place], [place] [address]Dr. Nahed Yañez TSHon 10-31-2021 TSH 1.088 uIU/mL Normal 0.358-3.740 [facility] Comment on above: Performed By: #### T 4, TSH, BNP, CMADM ####[facility] Qtskxxkydu4492 [place] [address]Dr. Nahed Yañez URINE MICROSCOPIC ONLYon BACTERIA TRACE Abnormal NONE SEEN [facility] Comment on above: Performed By: #### YARELIS DOVE ####[facility] Otbyudhpgo[address] [place], [place] [address]Dr. Nahed Yañez Bacteria identified Cx Nom (U) NOT INDICATED Normal [facility] Comment on above: Performed By: #### NUNU DOVERO ####[facility] Iriuinlvjf2904[address] [place], [place] [address]Dr. Nahed Yañez CAST NONE SEEN Normal NONE SEEN [facility] Comment on above: Performed By: #### YARELIS DOVE ####[facility] Mcyqcjdlji[address] [place], [place] [address]Dr. Nahed Yañez Crystals LM Nom (Urine sed) NONE SEEN Normal NONE SEEN [facility] Comment on above: Performed By: #### NUNU DOVERO ####[facility] Iwkdlvqkyj950[address] [place], [place] [address]Dr. Nahed Yañez Epithelial cells LM Ql (Urine sed) MODERATE Abnormal NONE SEEN /RARE [facility] Comment on above: Performed By: #### NUNU DOVERO ####[facility] Llkqinoida26[address] [place], [place] [address]Dr. Nahed Yañez MUCOUS SMALL Abnormal NONE SEEN [facility] Comment on above: Performed By: #### NUNU DOVERO ####[facility] Xqkhojrbre6[address] [place], [place] [address]Dr. Nahed Yañez RBC 2-5 Abnormal 0-2 [facility] Comment on above: Performed By: #### NUNU DOVERO ####[facility] Vjwieriprk[address] [place], [place] [address]Dr. Nahed Yañez WBC 2-5 Abnormal NONE SEEN [facility] Comment on above: Performed By: #### NUNU DOVERO ####[facility] Wgnltbvzxy19[address] [place], [place] [address]Dr. Nahed Yañez XR CHEST 2 Von 10-31-2021 XR CHEST 2 V Normal [facility] CULTURE URINEon 10-30-2021 CULTURE URINE Culture Observations : MODERATE GROWTH OF MIXED GENITAL MIGUEL. NO POTENTIAL PATHOGENS SEEN. Normal [facility] Comment on above: Performed By: #### U RCX ####[facility] Eefczjspva[address] [place] [id number]. Nahed Yañez US JESSEE DOP LEG BILon 022 US JESSEE DOP LEG MOHAN Normal [facility] CARDIAC FRANCISCO ADMITon 022 CK [Catalytic activity/Vol] 16 U/L Critically low 26-192 [facility] Comment on above: Performed By: #### C RENZO, CMADM ####[facility] Xyeafkadvs8917 [place] [address]Dr. Nahed Yañez CK.MB [Mass/Vol] 0.56 ng/mL Normal <=3.60 [facility] Comment on above: Performed By: #### C RENZO, CMADM ####[facility] Rdrmntfmwc2581 [place] [address]Dr. Nahed Yañez HSTROP 44.3 pg/mL Normal 4.0-51.3 [facility] Comment on above: Result Comment: CUT- OFF POINTS HAVE BEEN ESTABLISHED BASED ON THE FOURTH UNIVERSAL DEFINITIONS OF MYOCARDIALINFARCTION. THE UPPER REFERENCE LIMIT (URL) OF TROPONIN, DEFINED THE 99TH PERCENTILE OFcTnI DISTRIBUTION IN A REFERENCE POPULATION, HAS BEEN CONFIRMED THE DECISION THRESHOLDFOR [place] DIAGNOSIS. Performed By: #### C RENZO, CMADM ####[facility] Bebpudryzi[address] [place] [address]Dr. Nahed Yañez ANDRE 42 ng/mL Normal 9-82 [facility] Comment on above: Performed By: #### C RENZO, CMADM ####[facility] Tlqffqmluk38[address] [place] [id number]. Nahed Yañez CBC AUTO DIFFon 09-07-2021 BASO # 0.0 103/ul Normal 0.0-0.1 [facility] Comment on above: Performed By: #### C BC ####[facility] Gupnbaspps8[address] [place] [id number]. Nahed Yañez Basophils/100 WBC (Bld) 0.4 % Normal 0.2-2.0 [facility] Comment on above: Performed By: #### C BC ####[facility] [address]joclahrk[address] [place] [address]Dr. Nahed Yañez EO # 0.2 103/ul Normal 0.0-0.7 [facility] Comment on above: Performed By: #### C BC ####[facility] Tyqxzmabad[address] [place], [place] [address]Dr. Nahed Yañez Eosinophils/100 WBC (Bld) 2.4 % Normal 0.9-7.0 [facility] Comment on above: Performed By: #### C BC ####[facility] Bdpkubwyuw[address] [place], [place] [address]Dr. Nahed Yañez Erythrocyte distribution width (RBC) [Ratio] 15.1 % Critically high 11.0-15.0 [facility] Comment on above: Performed By: #### C BC ####[facility] Skkruuggvs[address] [place], [place] [address]DrShaun Yañez Hematocrit (Bld) [Volume fraction] 42.6 % Normal 36.0-48.0 [facility] Comment on above: Performed By: #### C BC ####[facility] Zvqlhcisaw[address] [place], [place] [address]Dr. Nahed Yañez Hemoglobin (Bld) [Mass/Vol] 13.4 g/dL Normal 12.0-16.0 [facility] Comment on above: Performed By: #### C BC ####[facility] Zdsnbaqtvu[address] [place], [place] [address]DrShaun Yañez IG # 0.33 10e3/ul Critically high 0.00-0.03 [facility] Comment on above: Performed By: #### C BC ####[facility] Wfqfjqlait[address] [place], [place] [address]Dr. Nahed Yañez IG % 3.9 % Critically high 0.0-0.5 [facility] Comment on above: Performed By: #### C BC ####[facility] Iunfkmorvc97[address] [place], [place] [address]Dr. Nahed Yañez LYMPH # 2.6 103/ul Normal 1.2-3.8 [facility] Comment on above: Performed By: #### C BC ####[facility] Ftycumccdi[address] [place] [address]Dr. Nahed Yañez Lymphocytes/100 WBC (Bld) 30.3 % Normal 20.5-60.0 [facility] Comment on above: Performed By: #### C BC ####[facility] Guanektvko34[address] [place], [place] [address]Dr. Nahed Yañez MANUAL DIFF REQ NO Normal [facility] Comment on above: Performed By: #### C BC ####[facility] Ykitamiemn6960[address] [place], [place] [address]Dr. Nahed Yañez MCH (RBC) [Entitic mass] 28.6 pg Normal 26.7-34.0 [facility] Comment on above: Performed By: #### C BC ####[facility] Exzczkdgak[address] [place], [place] [address]Dr. Nahed Yañez MCHC (RBC) [Mass/Vol] 31.5 g/dL Normal 29.9-35.2 [facility] Comment on above: Performed By: #### C BC ####[facility] Aqqcqxywbp[address] [place], [place] [address]Dr. Nahed Yañez MCV (RBC) [Entitic vol] 90.8 fL Normal 81.0-99.0 [facility] Comment on above: Performed By: #### C BC ####[facility] Zkpdggxygu3[address] [place], [place] [address]Dr. Nahed Yañez MONO # 0.7 103/ul Normal 0.3-0.8 [facility] Comment on above: Performed By: #### C BC ####[facility] Dyyigoseqa9387[address] [place], [place] [address]Dr. Nahed Yañez Monocytes/100 WBC (Bld) 8.0 % Normal 1.7-12.0 [facility] Comment on above: Performed By: #### C BC ####[facility] Mimldsikhy[address] [place], [place] [address]Dr. Nahed Yañez NEUT # 4.7 103/ul Normal 1.4-6.5 [facility] Comment on above: Performed By: #### C BC ####[facility] Pnqatbxpmd[address] [place] [address]DrShaun Yañez Neutrophils/100 WBC (Bld) 55.0 % Normal 43.0-75.0 [facility] Comment on above: Performed By: #### C BC ####[facility] Djmllieuzd[address]63 [place] [address]DrShaun Yañez Platelet mean volume (Bld) [Entitic vol] 8.9 fL Critically low 9.5-13.5 [facility] Comment on above: Performed By: #### C BC ####[facility] Mbcdhslqtv[address] [place], [place] [address]DrShaun Yañez PLT 270 103/ul Normal 150-450 [facility] Comment on above: Performed By: #### C BC ####[facility] Ufnacojjvd[address] [place], [place] [address]DrShaun Yañez RBC 4.69 106/ul Normal 4.20-5.40 [facility] Comment on above: Performed By: #### C BC ####[facility] Yjgaixjhap[address] [place], [place] [address]DrShaun Yañez WBC 8.5 103/ul Normal 4.0-11.0 [facility] Comment on above: Performed By: #### C BC ####[facility] Wogeagwjgi[address] [place], [place] [address]DrShaun Yañez PROF 14(COMP METB)on 022 Albumin [Mass/Vol] 2.7 g/dL Critically low 3.4-5.0 [facility] Comment on above: Performed By: #### ERICK Whyte MP ####[facility] Y[address]ralcvozt[address] [place], [place] [address]DrShaun Yañez Albumin/Globulin [Mass ratio] 0.8 {ratio} Normal [facility] Comment on above: Performed By: #### C ERICK MULLER ####[facility] Iucbhhxedl[address] [place], [place] [address]DrShaun Yañez ALP [Catalytic activity/Vol] 65 U/L Normal 46-116 [facility] Comment on above: Performed By: #### C RENZO, ERICK ####[facility] Wqnvajdsvx6096 [place] [address]Dr. Nahed Yañez ALT [Catalytic activity/Vol] 27 U/L Normal 14-59 [facility] Comment on above: Performed By: #### C RENZO, ERICK ####[facility] Vdrdtmzswe6360 [place] [address]Dr. Nahed Yañez Anion gap [Moles/Vol] 10.3 mmol/L Normal [facility] Comment on above: Performed By: #### C RENZO, ERICK ####[facility] Qwaagfqdnx2756 [place] [address]Dr. Nahed Yañez AST [Catalytic activity/Vol] 11 U/L Critically low 15-37 [facility] Comment on above: Performed By: #### C RENZO, ERICK ####[facility] Wrqqgxjksq[address] [place], [place] [address]Dr. Nahed Yañez Bilirubin [Mass/Vol] 0.3 mg/dL Normal 0.2-1.0 [facility] Comment on above: Performed By: #### C RENZO, ERICK ####[facility] Cmcdgrqxhf2192 [place] [address]Dr. Nahed Yañez Calcium [Mass/Vol] 8.1 mg/dL Critically low 8.5-10.1 [facility] Comment on above: Performed By: #### C RENZO, ERICK ####[facility] Xlylfdufif66[address] [place] [address]Dr. Nahed Yañez Chloride [Moles/Vol] 98 mmol/L Normal 98-107 [facility] Comment on above: Performed By: #### C RENZO, ERICK ####[facility] Pfakbvbfrt9116 [place] [address]Dr. Nahed Yañez CO2 [Moles/Vol] 32.5 mmol/L Critically high 21.0-32.0 [facility] Comment on above: Performed By: #### C RENZO, ERICK ####[facility] Uziqewxpse8603 [place] [id number]. Nahed Yañez Creatinine [Mass/Vol] 0.94 mg/dL Normal 0.55-1.02 [facility] Comment on above: Performed By: #### C RENZO, CMADM ####[facility] Hftjrmsmcx18[address] [place] [id number]. Nahed Yañez EGFR-AF SURINAMESE >60 Normal >=60 [facility] Comment on above: Performed By: #### C RENZO, CMADM ####[facility] Zpdskirnhc4[address] [place] [id number]. Nahed Yañez EGFR-NON AF SURINAMESE >60 Normal >=60 [facility] Comment on above: Performed By: #### C RENZO, CMAJOSE ####[facility] Ijdaxeycxd33[address] [place] [address]Dr. Nahed Yañez Globulin (S) [Mass/Vol] 3.2 g/dL Normal [facility] Comment on above: Performed By: #### C RENZO, CMADM ####[facility] Bszcdzimiw2464 [place] [address]Dr. Nahed Yañez Glucose [Mass/Vol] 123 mg/dL Critically high 74-106 [facility] Comment on above: Performed By: #### C RENZO, CMADM ####[facility] Cqlnaiyjpg8386 [place] [id number]. Nahed Yañez Potassium [Moles/Vol] 3.8 mmol/L Normal 3.5-5.1 [facility] Comment on above: Performed By: #### C RENZO, CMADM ####[facility] Fahhrzcsbu7705 [place] [id number]. Nahed Yañez Protein [Mass/Vol] 5.9 g/dL Critically low 6.1-8.2 [facility] Comment on above: Performed By: #### C RENZO, CMADM ####[facility] Xbqrwkklav8358 [place] [id number]. Nahde Yañez Sodium [Moles/Vol] 137 mmol/L Normal 136-145 [facility] Comment on above: Performed By: #### C RENZO, CMADM ####[facility] Rapswmtfpq28[address] [place] [address]Dr. Nahed Yañez Urea nitrogen [Mass/Vol] 20.0 mg/dL Critically high 7.0-18.0 [facility] Comment on above: Performed By: #### C MP, CMADM ####[facility] Qbfhisqvst91[address] [place], [place] [address]Dr. Nahed Yañez Urea nitrogen/Creatinine [Mass ratio] 21.3 mg/mg Normal [facility] Comment on above: Performed By: #### C MP, CMADM ####[facility] Xvfckxwmux8137[address] [place], [place] [address]Dr. Nahed Yañez BNPon 09-06-2021 Natriuretic peptide B (Bld) [Mass/Vol] 923.0 pg/mL Critically high <=900.0 [facility] Comment on above: Performed By: #### B MP, BNP, HSTROPN ####[facility] Qvemnzhyed[address] [place], [place] [address]Dr. Nahed Yañez CBC AUTO DIFFon 09-06-2021 BASO # 0.1 103/ul Normal 0.0-0.1 [facility] Comment on above: Performed By: #### C BC ####[facility] Ogbkdkwxtd[address] [place], [place] [address]Dr. Rosemarieashley Yañez Basophils/100 WBC (Bld) 0.6 % Normal 0.2-2.0 [facility] Comment on above: Performed By: #### C BC ####[facility] Afmjpxaplb66[address] [place], [place] [address]Dr. Nahed Otilio EO # 0.3 103/ul Normal 0.0-0.7 [facility] Comment on above: Performed By: #### C BC ####[facility] Mckoydciap06[address] [place], [place] [address]Dr. Nahed Otilio Eosinophils/100 WBC (Bld) 3.0 % Normal 0.9-7.0 [facility] Comment on above: Performed By: #### C BC ####[facility] Fmbxudxfkk96[address] [place], [place] [address]Dr. Nahed Yañez Erythrocyte distribution width (RBC) [Ratio] 15.0 % Normal 11.0-15.0 [facility] Comment on above: Performed By: #### C BC ####[facility] Bncpkouxli47[address] [place] [address]Dr. Nahed Yañez Hematocrit (Bld) [Volume fraction] 48.1 % Critically high 36.0-48.0 [facility] Comment on above: Performed By: #### C BC ####[facility] Ataf[address]nveq01[address] [place], [place] [address]Dr. Nahed Yañez Hemoglobin (Bld) [Mass/Vol] 15.5 g/dL Normal 12.0-16.0 [facility] Comment on above: Result Comment: delt a check called to Manisha WALKER Performed By: #### C BC ####[facility] Dlwcxodpks4[address] [place], [place] [address]Dr. Nahed Yañez IG # 0.46 10e3/ul Critically high 0.00-0.03 [facility] Comment on above: Performed By: #### C BC ####[facility] Mlkqukwghf9[address] [place], [place] [address]Dr. Nahed Yañez IG % 4.2 % Critically high 0.0-0.5 [facility] Comment on above: Performed By: #### C BC ####[facility] Igvexgxvyn2846[address] [place], [place] [address]Dr. Nahed Yañez LYMPH # 2.2 103/ul Normal 1.2-3.8 [facility] Comment on above: Performed By: #### C BC ####[facility] Tfjcxacdfn14[address] [place], [place] [address]Dr. Nahed Yañez Lymphocytes/100 WBC (Bld) 20.6 % Normal 20.5-60.0 [facility] Comment on above: Performed By: #### C BC ####[facility] Ilvrdtckkn[address] [place], [place] [address]Dr. Nahed Yañez MANUAL DIFF REQ NO Normal [facility] Comment on above: Performed By: #### C BC ####[facility] Nmfxohmvey1904 [place] [phone]. Nahed Yañez MCH (RBC) [Entitic mass] 28.2 pg Normal 26.7-34.0 [facility] Comment on above: Performed By: #### C BC ####[facility] Tqmtbknvvg5563 [place] [address]Dr. Nahed Yañez MCHC (RBC) [Mass/Vol] 32.2 g/dL Normal 29.9-35.2 [facility] Comment on above: Performed By: #### C BC ####[facility] F[address]rzebjqq17[address] [place], [place] [address]Dr. Nahed Yañez MCV (RBC) [Entitic vol] 87.5 fL Normal 81.0-99.0 [facility] Comment on above: Performed By: #### C BC ####[facility] Muhpboochv5[address] [place], [place] [address]Dr. Nahed Yañez MONO # 0.7 103/ul Normal 0.3-0.8 [facility] Comment on above: Performed By: #### C BC ####[facility] Hcfkhdfgzc04[address] [place], [place] [address]Dr. Nahed Otilio Monocytes/100 WBC (Bld) 6.4 % Normal 1.7-12.0 [facility] Comment on above: Performed By: #### C BC ####[facility] M[address] [place], [place] [address]Dr. Nahed Yañez NEUT # 7.1 103/ul Critically high 1.4-6.5 [facility] Comment on above: Performed By: #### C BC ####[facility] Eslbsydbhl10[address] [place], [place] [address]Dr. Nahed Otilio Neutrophils/100 WBC (Bld) 65.2 % Normal 43.0-75.0 [facility] Comment on above: Performed By: #### C BC ####[facility] [address]ugvvovjf[address] [place], [place] [address]Dr. Nahed Yañez Platelet mean volume (Bld) [Entitic vol] 8.9 fL Critically low 9.5-13.5 [facility] Comment on above: Performed By: #### C BC ####[facility] Fss[address]mrbmy[address]240 [place], [place] [address]Bj. Nahed Yañez PLT 390 103/ul Normal 150-450 [facility] Comment on above: Performed By: #### C BC ####[facility] Rlabxuecwc3938 [place], [place] [address]Xg. Nahed Yañez RBC 5.50 106/ul Critically high 4.20-5.40 [facility] Comment on above: Performed By: #### C BC ####[facility] Fqylddiduu3983 [place] [id number]. Nahed Yañez WBC 10.8 103/ul Normal 4.0-11.0 [facility] Comment on above: Performed By: #### C BC ####[facility] Omdjaxzuyi45[address] [place] [id number]. Nahed Yañez CULTURE BLOODon 09-06-2021 Microscopic examination of blood, culture Culture Observations: NO GROWTH AT 5 DAYS. Isolate 1 BC_BA_NA Normal [facility] Comment on above: Performed By: #### B LDCX2 ####[facility] Ceudorcvwl[address] [place] [phone]. Nahed Yañez Microscopic examination of blood, culture Culture Observations: NO GROWTH AT 5 DAYS. Normal [facility] Comment on above: Performed By: #### B LDCX1 ####[facility] Quxajwwksk1365 [place] [id number]. Nahed Yañez Covid-19 PCR (CVDTB)on 08-13 SARS-CoV-2 (COVID-19) RNA MIRNA+probe Ql (Unsp spec) Not detected Normal NOT DETECTED [facility] Comment on above: Result Comment: When [...] for this test is supported by the [employer] of Health and Human Service's declaration that [...] be used). Performed By: #### C VDTBH ####[facility] Pxanojrwyf88[address] [place], [place] [address]Dr. aNhed Yañez LACTATE/LACTIC ACIDon 2021 Lactate [Moles/Vol] 0.1 mmol/L Critically low 0.4-2.0 [facility] Comment on above: Performed By: #### L ACT ####[facility] H[address]hkwxxi27[address] [place], [place] [address]Dr. Nahed Yañez Lactate [Moles/Vol] 1.5 mmol/L Normal 0.4-2.0 [facility] Comment on above: Performed By: #### L ACT ####[facility] Gmvqecxbib[address] [place], [place] [address]Dr. Nahed Yañez POINT OF CARE GLUCOSEon 08-13 Glucose [Mass/Vol] 201 mg/dL Critically high 74-106 [facility] Comment on above: Performed By: #### P OCGLUC ####[facility] Z[address]fzuzffz86[address] [place], [place] [address]Dr. Nahed Yañez PROF CHEM 8 (BAS METB)on Anion gap [Moles/Vol] 14.8 mmol/L Normal [facility] Comment on above: Performed By: #### B MP, BNP, HSTROPN ####[facility] Sm[address]vjgvpv7[address] [place], [place] [address]Dr. Nahed Yañez Calcium [Mass/Vol] 8.8 mg/dL Normal 8.5-10.1 [facility] Comment on above: Performed By: #### B MP, BNP, HSTROPN ####[facility] Rznqagmicy1187[address] [place], [place] [address]Dr. Nahed Yañez Chloride [Moles/Vol] 95 mmol/L Critically low 98-107 [facility] Comment on above: Performed By: #### B MP, BNP, HSTROPN ####[facility] Nobkeydlyb[address] [place] [address]Dr. Nahed Yañez CO2 [Moles/Vol] 28.7 mmol/L Normal 21.0-32.0 [facility] Comment on above: Performed By: #### B MP, BNP, HSTROPN ####[facility] Kwenvpmmxt3[address] [place] [address]Dr. Nahed Yañez Creatinine [Mass/Vol] 0.98 mg/dL Normal 0.55-1.02 [facility] Comment on above: Performed By: #### B MP, BNP, HSTROPN ####[facility] I[address]zfz[address] [place], [place] [address]Dr. Nahed Yañez EGFR-AF SURINAMESE >60 Normal >=60 [facility] Comment on above: Performed By: #### B MP, BNP, HSTROPN ####[facility] V[address]rixzpzu[address] [place], [place] [address]Dr. Nahed Yañez EGFR-NON AF SURINAMESE 58 mL/min/1.73m2 Critically low >=60 [facility] Comment on above: Performed By: #### B MP, BNP, HSTROPN ####[facility] Keymmaptna[address] [place] [address]Dr. Nahed Yañez Glucose [Mass/Vol] 150 mg/dL Critically high 74-106 [facility] Comment on above: Performed By: #### B MP, BNP, HSTROPN ####[facility] Rkoskaueyo8554 [place] [address]Dr. Rosemarieashley Yañez Potassium [Moles/Vol] 4.5 mmol/L Normal 3.5-5.1 [facility] Comment on above: Performed By: #### B MP, BNP, HSTROPN ####[facility] Oyrurcboly[address] [place] [address]Dr. Nahed Yañez Sodium [Moles/Vol] 134 mmol/L Critically low 136-145 [facility] Comment on above: Performed By: #### B MP, BNP, HSTROPN ####[facility] Rhlofychpj8078 [place] [phone]. Nahed Yañez Urea nitrogen [Mass/Vol] 19.0 mg/dL Critically high 7.0-18.0 [facility] Comment on above: Performed By: #### B MP, BNP, HSTROPN ####[facility] Uautescyup[address] [place] [address]Dr. Nahed Yañez Urea nitrogen/Creatinine [Mass ratio] 19.4 mg/mg Normal [facility] Comment on above: Performed By: #### B MP, BNP, HSTROPN ####[facility] Gcdunvqbui85[address] [place] [address]Dr. Nahed Yañez TROPONIN, HIGH SENSITIVITYon 09-06-2021 HSTROP 50.4 pg/mL Normal 4.0-51.3 [facility] Comment on above: Result Comment: CUT- OFF POINTS HAVE BEEN ESTABLISHED BASED ON THE FOURTH UNIVERSAL DEFINITIONS OF MYOCARDIALINFARCTION. THE UPPER REFERENCE LIMIT (URL) OF TROPONIN, DEFINED THE 99TH PERCENTILE OFcTnI DISTRIBUTION IN A REFERENCE POPULATION, HAS BEEN CONFIRMED THE DECISION THRESHOLDFOR MN DIAGNOSIS. Performed By: #### B MP, BNP, HSTROPN ####[facility] Rxsl[address]kvqe[address] [place] [address]Dr. Nahed Yañez XR CHEST 1 Von 09-06-2021 XR CHEST 1 V Normal [facility] CBC with Diffon 09-08-2018 Abs. Basophil 0.03 k/uL Normal 0.00-0.20 [facility] Comment on above: Performed By: #### L IP, CMPX, CDP #### [facility] [address] [place] [address] [employer]: Nino Farias MD Abs.Imm.Granulocyte 0.05 k/uL Normal 0.00-0.30 [place] Comment on above: Performed By: #### L IP, CMPX, CDP #### [facility] [address] [place] [address] [employer]: Nino Farias MD Abs.Neutrophil (Seg) 11.30 k/uL High 1.50-8.[address] [facility] Comment on above: Performed By: #### L IP, CMPX, CDP #### [facility] [address] [place], [place] [id number] [employer] Captain: Nino Farias MD Basophils/100 WBC (Bld) 0 % Normal 0-2 [place] Comment on above: Performed By: #### L IP, CMPX, CDP #### [facility] [address] [place], [place] [id number] [employer] Captain: Nino Farias MD Eosinophils #/vol (Bld) 0.17 10*3/uL Normal 0.00-0.44 [place] Comment on above: Performed By: #### L IP, CMPX, CDP #### [address] [place], [facility]83 [employer]: Nino Farias MD Eosinophils/100 WBC (Bld) 1 % Normal 1-4 [place] Comment on above: Performed By: #### L IP, CMPX, CDP #### [address] [place], [facility]83 [employer]: Nino Farias MD Erythrocyte distribution width Ratio (RBC) 12.5 % Normal 11.8-14.4 [place] Comment on above: Performed By: #### L IP, CMPX, CDP #### [address] [place], [place] [id number] [employer]: Nino Farias MD Hematocrit Volume Fraction (Bld) 36.8 % Normal 36.3-47.1 [place] Comment on above: Performed By: #### L IP, CMPX, CDP #### [address] [place], [place] [id number] [employer]: Nino Farias MD Hemoglobin mass conc (Bld) 11.6 g/dL Low 11.9-15.1 [place] Comment on above: Performed By: #### L IP, CMPX, CDP #### [facility] [address] [place] [address] Dr. [place], [facility]83 [employer] Captain: Nino Farias MD Immature granulocytes #/vol (Bld) 0 % Normal 0 [place] Comment on above: Performed By: #### L IP, CMPX, CDP #### [facility] [address] [place], [place] [address] [employer]ishing [employer] Captain: Nino Farias MD Lymphocytes #/vol (Bld) 2.56 10*3/uL Normal 1.10-3.70 [place] Comment on above: Performed By: #### L IP, CMPX, CDP #### [address] [place] [address] [employer]ishing [employer] Captain: Nino Farias MD Lymphocytes/100 WBC (Bld) 18 % Low 24-43 [place] Comment on above: Performed By: #### L IP, CMPX, CDP #### [address] [place], [place] [address] [employer]essel Captain: Nino Farias MD MCH Entitic mass (RBC) 30.6 pg Normal 25.2-33.[address] [facility] Comment on above: Performed By: #### L IP, CMPX, CDP #### [address] [place], [facility]83 [employer] Captain: Nino Farias MD MCHC mass conc (RBC) 31.5 g/dL Normal 28.4-34.[address] [facility] Comment on above: Performed By: #### L IP, CMPX, CDP #### [address] [place], [facility]83 [employer] Captain: Nino Farias MD MCV Entitic volume (RBC) 97.1 fL Normal 82.6-102.9 [place] Comment on above: Performed By: #### L IP, CMPX, CDP #### [facility] [address] [place], [place] [id number] [employer] Captain: Nino Farias MD Monocytes #/vol (Bld) 0.55 10*3/uL Normal 0.10-1.20 M [facility] Comment on above: Performed By: #### L IP, CMPX, CDP #### [facility] [address] [place], [place] [address] [employer] Captain: Nino Farias MD Monocytes/100 WBC (Bld) 4 % Normal 3-12 [place] Comment on above: Performed By: #### L IP, CMPX, CDP #### [address] [place], [facility]83 [employer] Captain: Nino Farias MD Neutrophil (Seg) 77 % High 36-65 [facility] Comment on above: Performed By: #### L IP, CMPX, CDP #### [address] [place], [facility] [facility] [employer] Captain: Nino Farias MD NRBC Automated 0.0 per 100 WBC Normal 0.0 [place] Comment on above: Performed By: #### L IP, CMPX, CDP #### [address] [place], [place] [address] Fishing [employer]essel Captain: Nino Farias MD Platelet mean volume Entitic volume (Bld) 9.2 fL Normal 8.1-13.5 [facility] Comment on above: Performed By: #### L IP, CMPX, CDP #### [address] [place], [place] [id number] Fishing [employer]essel Captain: Nino Farias MD Platelets #/vol (Bld) 305 10*3/uL Normal 138-[address] [facility] Comment on above: Performed By: #### L IP, CMPX, CDP #### [facility] [address] [place] [address] Fishing Vessel Captain: Nino Farias MD RBC #/vol (Bld) 3.79 10*6/uL Low 3.95-5.11 [facility] Comment on above: Performed By: #### L IP, CMPX, CDP #### [facility] [address] [place], [place] [id number] Fishing [employer]essel Captain: Nino Farias MD WBC #/vol (Bld) 14.7 10*3/uL High 3.5-11.3 [facility] Comment on above: Performed By: #### L IP, CMPX, CDP #### [address] [place], [place] [id number] Fishing Vessel Captain: Nino Farias MD Auto Diff Performed NOT REPORTED Normal [facility] Comment on above: Performed By: #### L IP, CMPX, CDP #### [facility] [address] [place] [address] [place], [place] [id number] Fishing Vessel Captain: Nino Farias MD Platelets #/vol (Bld) NOT REPORTED Normal [facility] Comment on above: Performed By: #### L IP, CMPX, CDP #### [address] [place], [place] [id number] Fishing Vessel Captain: Nino Farias MD RBC morphology finding Nom (Bld) NOT REPORTED Normal [place] Comment on above: Performed By: #### L IP, CMPX, CDP #### [facility] [address] [place] [address] [place], [place] [id number] Fishing Vessel Captain: Nino Farias MD WBC Morphology NOT REPORTED Normal [facility] Comment on above: Performed By: #### L IP, CMPX, CDP #### [facility] [address] [place], [place] [id number] Fishing Vessel Captain: Nino Farias MD Comp Metabolic Pr/rfx MGon 0 09-08-2018 ALT enzyme act/vol U/L Low 5-33 [place] Comment on above: Performed By: #### L IP, CMPX, CDP #### [facility] [address] [place] [address] Fishing Vessel Captain: Nino Farias MD (cont.) [facility] Comment on above: Result Comment: Aver age GFR for 50-59 years old: 93 mL/min/1.73sq m Chronic Kidney Disease: <60 mL/min/1.73sq m Kidney failure: <15 mL/min/1.73sq m eGFR calculated using average adult body mass. Additional eGFR calculator available at: http://www.[employer]/multiple_crcl_2011.htm Performed By: #### L IP, CMPX, CDP #### [facility] [address] [place] [address] Fishing Vessel Captain: Nino Farias MD Albumin mass conc 4.0 g/dL Normal 3.5-5.2 [facility] Comment on above: Performed By: #### L IP, CMPX, CDP #### [facility] [address] [place] [address] Fishing Vessel Captain: Nino Farias MD Albumin/Globulin mass ratio 1.3 {ratio} Normal 1.0-2.5 [place] Comment on above: Performed By: #### L IP, CMPX, CDP #### [facility] [address] [place] [address] Fishing Vessel Captain: Nino Farias MD Alkaline Phos 58 U/L Normal 35-104 [facility] Comment on above: Performed By: #### L IP, CMPX, CDP #### [facility] [address] [place] [address] Fishing Vessel Captain: Nino Farias MD Anion gap molar conc 8 mmol/L Low 9-[address] [facility] Comment on above: Performed By: #### L IP, CMPX, CDP #### [facility] [address] [place] [address] Fishing Vessel Captain: Nino Farias MD AST enzyme act/vol 20 U/L Normal <32 [place] Comment on above: Performed By: #### L IP, CMPX, CDP #### [facility] [address] [place] [address] Fishing Vessel Captain: Nino Farias MD Bilirubin Ql (U) 0.17 mg/dL Low 0.3-1.2 [facility] Comment on above: Performed By: #### L IP, CMPX, CDP #### [facility] [address] [place] [address] Fishing Vessel Captain: Nino Farias MD BUN/CRE Ratio 15 Normal 9-20 [facility] Comment on above: Performed By: #### L IP, CMPX, CDP #### [facility] [address] [place] [address] Fishing Vessel Captain: Nino Farias MD Calcium mass conc 9.3 mg/dL Normal 8.6-10.4 [facility] Comment on above: Performed By: #### L IP, CMPX, CDP #### [facility] [address] [place] [address] Fishing Vessel Captain: Nino Farias MD Chloride molar conc 97 mmol/L Low 98-107 [place] Comment on above: Performed By: #### L IP, CMPX, CDP #### [facility] [address] [place] [address] Fishing Vessel Captain: Nino Farias MD CO2 molar conc 31 mmol/L Normal 20-31 [facility] Comment on above: Performed By: #### L IP, CMPX, CDP #### [facility] [address] [place] [address] Fishing Vessel Captain: Nino Farias MD Creatinine mass conc 1.22 mg/dL High 0.50-0.[address] [facility] Comment on above: Performed By: #### L IP, CMPX, CDP #### [facility] [address] [place], [place] [phone] Fishing Vessel Captain: Nino Farias MD GFR, Amer 55 mL/min Low >60 [facility] Comment on above: Performed By: #### L IP, CMPX, CDP #### [facility] [address] [place], [place] [phone] Fishing Vessel Captain: Nino Farias MD GFR,non Amer 45 mL/min Low >[address] [facility] Comment on above: Performed By: #### L IP, CMPX, CDP #### [facility] [address] [place] [address] Fishing Vessel Captain: Nino Farias MD Glucose mass conc 93 mg/dL Normal 70-99 [facility] Comment on above: Performed By: #### L IP, CMPX, CDP #### [facility] [address] [place], [place] [id number] Fishing Vessel Captain: Nino Farias MD Potassium molar conc 4.5 mmol/L Normal 3.7-5.[address] [facility] Comment on above: Performed By: #### L IP, CMPX, CDP #### [facility] [address] [place], [place] [id number] Fishing Vessel Captain: Nino Farias MD Protein mass conc 7.0 g/dL Normal 6.4-8.3 [facility] Comment on above: Performed By: #### L IP, CMPX, CDP #### [facility] [address] [place], [place] [id number] Fishing Vessel Captain: Nino Farias MD Sodium molar conc 136 mmol/L Normal 135-144 [facility] Comment on above: Performed By: #### L IP, CMPX, CDP #### [facility] [address] [place] [address] Fishing Vessel Captain: Nino Farias MD Staging: Normal [place] Comment on above: Result Comment: Stag e 1: Some kidney damage normal GFR Stage 2: Mild kidney damage GFR 60-89 Stage 3: Moderate kidney damage GFR 30-59 Stage 4: Severe kidney damage GFR 15-29 Stage 5: Severe kidney damage GFR <15 ESRD - chronic treatment by dialysis or transplant Performed By: #### L IP, CMPX, CDP #### [facility] [address] [place] [address] Fishing Vessel Captain: Nino Farias MD Urea nitrogen mass conc 18 mg/dL Normal 6-20 [place] Comment on above: Performed By: #### L IP, CMPX, CDP #### [facility] [address] [place] [address] Fishing Vessel Captain: Nino Farias MD Lactic Acidon 09-08-2018 Lactate molar conc 1.2 mmol/L Normal 0.5-2.2 [place] Comment on above: Performed By: #### L AC #### [facility] [address] [place] [address] Fishing Vessel Captain: Nino Farias MD Lipaseon 09-08-2018 Lipase enzyme act/vol 27 U/L Normal 13-60 [facility] Comment on above: Performed By: #### L IP, CMPX, CDP #### [facility] [address] [place] [address] Fishing Vessel Captain: Nino Farias MD UA w/Reflex Cultureon 2018 Acetoacetic Acid,Ur Negative Normal NEG [place] Comment on above: Performed By: #### U MICAO, UAX #### [facility] [address] [place] [address] Fishing Vessel Captain: Nino Farias MD Bilirubin.direct mass conc SMALL Abnormal NEG [place] Comment on above: Performed By: #### U MICAO, UAX #### [facility] [address] [place] [address] Fishing Vessel Captain: Nino Farias MD Color Nom (U) YELLOW Normal YEL [facility] Comment on above: Performed By: #### U MICAO, UAX #### [facility] [address] [place], [place] [phone] Fishing Vessel Captain: Nino Farias MD Glucose mass conc Negative Normal [facility] Comment on above: Performed By: #### U MICAO, UAX #### [facility] [address] [place] [address] Fishing Vessel Captain: Nino Farias MD Hemoglobin mass conc (Bld) Negative Normal [facility] Comment on above: Performed By: #### U MICAO, UAX #### [facility] [address] [place] [address] Fishing Vessel Captain: Nino Farias MD Leuckocyte Esterase Negative Normal [facility] Comment on above: Performed By: #### U MICAO, UAX #### [facility] [address] [place] [address] Fishing Vessel Captain: Nino Farias MD Nitrite,Ur Negative Normal [facility] Comment on above: Performed By: #### U MICAO, UAX #### [facility] [address] [place] [address] Fishing Vessel Captain: Nino Farias MD PH,Ur 5.5 Normal 5.0-9.0 [place] Comment on above: Performed By: #### U MICAO, UAX #### [facility] [address] [place] [address] Fishing Vessel Captain: Nino Farias MD Protein mass conc Negative Normal [facility] Comment on above: Performed By: #### U MICAO, UAX #### [facility] [address] [place] [address] Fishing Vessel Captain: Nino Farias MD Spec. [place],Ur 1.010 Normal 1.010-1.020 [facility] Comment on above: Performed By: #### U MICAO, UAX #### [facility] [address] [place], [place] [phone] Fishing Vessel Captain: Nino Farias MD Turbidity CLEAR Normal CLEAR [place] Comment on above: Performed By: #### U MICAO, UAX #### [facility] [address] [place], [place] [address] Fishing Vessel Captain: Nino Farias MD Urobilinogen,Ur Normal Normal NORM [facility] Comment on above: Performed By: #### U MICAO, UAX #### [facility] [address] [place], [place] [phone] Fishing Vessel Captain: Nino Farias MD Comment NOT REPORTED Normal [place] Comment on above: Performed By: #### U MICAO, UAX #### [facility] [address] [place], [facility] Fishing Vessel Captain: Nino Farias MD Urinalysis,Microon 9 ----- Normal [place] Comment on above: Performed By: #### U MICAO, UAX #### [facility] [address] [place], [place] [phone] Fishing Vessel Captain: Nino Farias MD Bacteria LM.HPF #/area (Urine sed) TRACE Abnormal NONE [place] Comment on above: Performed By: #### U MICAO, UAX #### [facility] [address] [place], [place] [phone] Fishing Vessel Captain: Nino Farias MD Epithelial cells LM.HPF #/area (Urine sed) None Normal 0-25 [place] Comment on above: Performed By: #### U MICAO, UAX #### [facility] [address] [place], [place] [id number] Fishing Vessel Captain: Nino Farias MD RBC #/vol (U) None Normal 0-2 [facility] Comment on above: Performed By: #### U MICAO, UAX #### [facility] [address] [place] [address] Fishing Vessel Captain: Nino Farias MD WBC #/vol (U) 0 TO 2 Normal 0-5 [facility] Comment on above: Performed By: #### U MICAO, UAX #### [facility] [address] [place] [address] Fishing Vessel Captain: Nino Farias MD Amorphous sediment LM Ql (Urine sed) NOT REPORTED Normal [facility] Comment on above: Performed By: #### U MICAO, UAX #### [facility] [address] [place] [address] Fishing Vessel Captain: Nino Farias MD Casts LM.LPF #/area (Urine sed) NOT REPORTED Normal [place] Comment on above: Performed By: #### U MICAO, UAX #### [facility] [address] [place] [address] Fishing Vessel Captain: Nino Farias MD Crystals LM Nom (Urine sed) NOT REPORTED Normal [facility] Comment on above: Performed By: #### U MICAO, UAX #### [facility] [address] [place] [address] Fishing Vessel Captain: Nino Farias MD Epithelial, Renal NOT REPORTED Normal 0 [place] Comment on above: Performed By: #### U MICAO, UAX #### [facility] [address] [place] [address] Fishing Vessel Captain: Nino Farias MD Mucus Strands NOT REPORTED Normal [facility] Comment on above: Performed By: #### U MICAO, UAX #### [facility] [address] [place] [address] Fishing Vessel Captain: Nino Farias MD Other Observations NOT REPORTED Normal NREQ [facility] Comment on above: Performed By: #### U MICAO, UAX #### [facility] [address] [place] [address] Fishing Vessel Captain: Nino Fairas MD Trichomonas NOT REPORTED Normal NONE [facility] Comment on above: Performed By: #### U MICAO, UAX #### [facility] [address] [place] [address] Fishing Vessel Captain: Nino Farias MD Yeast LM Ql (Urine sed) NOT REPORTED Normal NONE [place] Comment on above: Performed By: #### U MICAO, UAX #### [facility] [address] [place] [address] Fishing Vessel Captain: Nino Farias MD Vital Signs Date Time Vital Sign Value Performing Clinician Faci lity 07-05-2023 22:13-0500 Diastolic blood pressure 74 mm[Hg] Arsenio Martin [facility] 07-05-2023 22:13-0500 Heart rate 62 /min Arsenio Martin [facility] 07-05-2023 22:13-0500 Mean blood pressure 85 mm[Hg] Arsenio Martin [facility] 07-05-2023 22:13-0500 Respiratory rate 14 /min Arsenio Martin [facility] 07-05-2023 22:13-0500 SaO2% (BldA) [Mass fraction] 99 % Arsenio Martin [facility] 07-05-2023 22:13-0500 Systolic blood pressure 107 mm[Hg] Arsenio Martin [facility] 07-05-2023 21:49-0500 Diastolic blood pressure 69 mm[Hg] Arsenio Martin [facility] 07-05-2023 21:49-0500 Heart rate 59 /min Arsenio Martin [facility] 07-05-2023 21:49-0500 Mean blood pressure 80 mm[Hg] Arsenio Mario [facility] 07-05-2023 21:49-0500 Respiratory rate 15 /min Arsenio Mario [facility] 07-05-2023 21:49-0500 SaO2% (BldA) [Mass fraction] 97 % Arsenio Mario [facility] 07-05-2023 21:49-0500 Systolic blood pressure 101 mm[Hg] Arsenio Mario [facility] 07-05-2023 21:02-0500 Diastolic blood pressure 77 mm[Hg] Arsenio Martin [facility] 07-05-2023 21:02-0500 Heart rate 60 /min Arsenio Martin [facility] 07-05-2023 21:02-0500 Mean blood pressure 86 mm[Hg] Arsenio Mario [facility] 07-05-2023 21:02-0500 Respiratory rate 16 /min Arsenio Martin [facility] 07-05-2023 21:02-0500 SaO2% (BldA) [Mass fraction] 99 % Arsenio Martin [facility] 07-05-2023 21:02-0500 Systolic blood pressure 105 mm[Hg] Arsenio Mario [facility] 07-05-2023 17:45-0500 Body temperature 97.52 [degF] Arsenio Mario [facility] 07-05-2023 16:27-0500 Body temperature 96.44 [degF] Arsenio Mario [facility] 07-05-2023 15:15-0500 gluc 136 mg/dL Arsenio Mario [facility] 07-05-2023 15:15-0500 gluc Arsenioulises Martin [facility] 07-05-2023 15:02-0500 Body temperature 95.9 [degF] Arsenio Mario [facility] 07-05-2023 15:02-0500 Heart rate 54 /min Arsenio Mario [facility] 07-05-2023 15:02-0500 Respiratory rate 16 /min Arsenio Mario [facility] 08-09-2022 17:25-0400 Diastolic blood pressure 64 mm[Hg] Arsenio Mario [facility] 08-09-2022 17:25-0400 Heart rate 75 /min Arsenio Mario [facility] 08-09-2022 17:25-0400 Mean blood pressure 83 mm[Hg] Arsenio Mario [facility] 08-09-2022 17:25-0400 Respiratory rate 16 /min Arsenio Mario [facility] 08-09-2022 17:25-0400 SaO2% (BldA) [Mass fraction] 96 % Arsenio Mario [facility] 08-09-2022 17:25-0400 Systolic blood pressure 122 mm[Hg] Arsenio Mario [facility] 08-09-2022 16:00-0400 Diastolic blood pressure 56 mm[Hg] Arsenio Mario [facility] 08-09-2022 16:00-0400 Heart rate 64 /min Arsenio Mario [facility] 08-09-2022 16:00-0400 Mean blood pressure 72 mm[Hg] Arsenio Martin [facility] 08-09-2022 16:00-0400 SaO2% (BldA) [Mass fraction] 92 % Arsenio Martin [facility] 08-09-2022 16:00-0400 Systolic blood pressure 103 mm[Hg] Arsenio Martin [facility] 08-09-2022 15:00-0400 Diastolic blood pressure 67 mm[Hg] Arsenio Martin [facility] 08-09-2022 15:00-0400 Heart rate 61 /min Arsenio Martin [facility] 08-09-2022 15:00-0400 Mean blood pressure 80 mm[Hg] Arsenio Martin [facility] 08-09-2022 15:00-0400 Systolic blood pressure 106 mm[Hg] Arsenio Martin [facility] 08-09-2022 14:03-0400 SaO2% (BldA) [Mass fraction] 94.1 % Arsenio Martin [facility] Resp Auto SS 08-09-2022 13:10-0400 Body temperature 98.24 [degF] Arsenio Martin [facility] 08-09-2022 13:10-0400 Heart rate 70 /min Arsenio Martin [facility] 08-09-2022 13:10-0400 Respiratory rate 18 /min Arsenio Martin [facility] Encounters Encounter Date Encounter Type Care Provider Facility Start: 07-11-2023 Evaluation and management of inpatient LOREE CHANCE [facility] Start: 07-08-2023 Evaluation and management of inpatient MANESH LARSON [facility] Start: 07-06-2023 Evaluation and management of inpatient MANLAYNE LARSON [facility] Start: 07-06-2023 End: 07-11-2023 Evaluation and management of inpatient UMAIR MANDUJANO [facility] Start: 07-05-2023 End: 07-06-2023 Emergency department patient visit Arsenio Martin Facility:[facility] Start: 07-05-2023 End: 07-05-2023 Emergency department patient visit Arsenio Martin [facility] Start: 06-29-2023 Evaluation and management of inpatient ROSALBA MOSS [facility] Start: 06-29-2023 End: 07-02-2023 Evaluation and management of inpatient SOCORRO Zayas MATTHEW [facility] Start: 08-22-2022 End: 08-24-2022 Evaluation and management of inpatient DR ЕКАТЕРИНА ROBERT . Facility: Start: 08-09-2022 End: 08-09-2022 Emergency department patient visit Arsenio Martin Facility:[facility] Start: 08-09-2022 End: 08-09-2022 Emergency department patient visit Arsenio Martin [facility] Start: 07-30-2022 End: 08-01-2022 Evaluation and management of inpatient DR ЕКАТЕРИНА ROBERT . Facility: Start: 07-27-2022 End: 07-28-[address] ЕКАТЕРИНА ROBERT . Facility:[facility] Start: 05-08-2022 End: 05-09-[address] ЕКАТЕРИНА ROBERT . Facility:[facility] Start: 01-31-2022 End: 01-31-[address] ЕКАТЕРИНА ROBERT . Facility: Start: 11-01-2021 End: 11-03-2021 Evaluation and management of inpatient TAMIE FAJARDO Facility:[facility] Start: 10-31-2021 End: 11-01-2021 Evaluation and management of inpatient DR ЕКАТЕРИНА ROBERT . Facility:[facility] Start: 09-28-2021 End: 09-29-[address] ЕКАТЕРИНА ROBERT . Facility:[facility] Start: 09-06-2021 End: 09-07-[address] ЕКАТЕРИНА ROBERT . Facility:[facility] Start: 03-04-2021 End: 03-04-2021 Emergency department patient visit Magdalena Oconnor Facility:[facility] Start: 09-08-2018 End: 09-08-2018 Emergency department patient visit KEISHA DORADO JR [place] Procedures Date Procedure Procedure Detail Performing Clinician Start: 08-02-2022 Microscopic examinat ion of blood, culture DR ЕКАТЕРИНА ROBERT . Comment on above: Performed By: #### B [id number] ####[facility] [address] [place], [place] [address]Jj. Nahed Otilio Start: 11-02-2021 Antibody screen SAVANNAHI AD Comment on above: Performed By: #### 3 [id number], [address] #### [facility] [address] Start: 07-16-2019 Phalangectomy of toe Fabián [...] Date Payer Category Payer Self-pay 2018 Medicare [id number] 1960 Unknown [id number] 2.16.8 [id number] 1961 Unknown [id number] 2.16.8 [id number] 1961 Unknown [id number] 2.16.84 [id number] 1961 Unknown [id number] 2.16.84 [id number] 1961 Unknown [id number] 2.16.84 [id number] 1961 Unknown [id number] 2.16.84 [id number] 1961 Unknown [id number] 2.16.84 [id number] 1961 Unknown [id number] 2.16.84 [id number] 1961 Unknown [id number] 2.16.84 [id number] 1961 Unknown [id number] 2.16.84 [id number] 1961 Unknown [id number] 2.16.8 [id number] 1961 Unknown [id number] 2.16.8 [id number] 1959 Unknown [id number] Unknown [id number] 2.16.8 [id number] Social History Date Type Detail Facility Start: 08-09-2022 Tobacco smoking status Heavy t obacco smoker (finding) [facility] Comment on above: 2 cigarettes a day Sex Assigned At Female [facility] Functional Status Date Assessment Result Facility 07-05-2023 Functional Status N/A [facility] 08-09-2022 Functional Status N/A [facility] Clinical Notes 11-03-2021 to 07-11-2023 Note [...] 10:20 AM Socorro Oviedo NP CARD Deirdre [facility] 08/06/2023 1:30 PM [facility] CV CLINIC DEVICE CHECK PSYCHIATRIC CARD NE HeartVAS Your medication list START taking these [...] 70.4 kg (1 (more content not included)... [facility] 07-11-2023 Note Occupational Therapy Occupational Therapy Evaluation [...] List Diagnosis NSTEMI (non-ST elevated myocardial infarction) ([facility]/HCC) Coronary arteriosclerosis Hyperlipidemia Type 2 diabetes mellitus ([facility]/HCC) Acute non-ST segment elevation myocardial infarction ([facility]/HCC) Cigarette smoker Other forms of angina [...] Level of Function Prior Function Level of [place]: Independent with ADLs and functional transfers, Independent [...] Eating meals?: None (Independent) Total Score OT [facility]: 24 Assessment/Plan OT Assessment OT Education/Comments: (PPM handout issued and discussed with good return demo) Plan OT Plan: No skilled OT OT Discharge Recommendations: Home OT - Discharge Recommendations Placed: Yes OT Goals Multi-Disciplinary Problems (from Occupational Therapy) Active Problems Not on file [facility] 07-11-2023 Note UTP CARDIOLOGY PROGR ESS NOTE [...] Normal heart size. Electronically signed: Denver Hernandez. [facility] 06/29/23: Final Impression: 1) Coronary angiogram shows stable CAD 2) right heart catheterization shows severely decompensated heart failure with mean wedge pressure 35 mmHg Plan: 1) optimal med therapy for CAD and HFpEF 2) Aspirin and high intensity statin therapy for CAD 3) optimize medical therapy for HFpEF as tolerated 4) outpatient follow-up with [place] cardiology Echo 06/29/23: Left Ventricle: The left ventricle is normal size. Global left ventricular sys (more content not included)... [facility] 07-11-2023 Note Hospital Medicine Daily Progress Note - 07/11/2023 8:24 AM; Room: 3120/3120-01 Admission: 07/06/2023 12:25 AM; Length of stay: 5 days THE HOSPITALIST TEAM PREFERS TO USE [employer] CHAT FOR COMMUNICATION 7AM-7PM. IF I DO NOT RESPOND WITHIN 15 MINUTES, PLEASE PAGE ME/CALL THROUGH THE CHIEF CONTROLLER CENTER. FROM 7PM-7AM, PLEASE PAGE [phone](COVR) Code Status: Full Code Barriers to Discharge: [...] LDL 95 07/06/2023 No results found for: [id number] , IRON , TIBC , C3 , [...] clear. Normal heart (more content not included)... [facility] 07-10-2023 Note Indications for dual -chamber pacemaker [...] of the upper extremity Loree Chance M.D. [facility] [employer] mule operator and Pediatrics Director: Cardiac Electrophysiology Program [facility] 07-10-2023 Note Patient: Vivian Dela Cruz or Procedure Information Date/Time: 07/10/23 1500 Procedure: Implant PPM Location: [facility] BILLING ASSISTANT 1 / [facility] (Cath) Providers: Loree Chance MD [...] discussed with patient who. Additional Equipment Requests [facility] 07-10-2023 Note UTP CARDIOLOGY PROGR ESS NOTE [...] lock IV AND sodium chloride CV Testing: [facility] 06/29/23: Final Impression: 1) Coronary angiogram shows stable CAD 2) right heart catheterization shows severely decompensated heart failure with mean wedge pressure 35 mmHg Plan: 1) optimal med therapy for CAD and HFpEF 2) Aspirin and high intensity statin therapy for CAD 3) optimize medical therapy for HFpEF as tolerated 4) outpatient follow-up with [place] [facility] Echo 06/29/23: Left Ventricle: The left [...] 86 QT Interval 466 QTC CALCULATION(BAZETT) 476 R-Squires 34 T Wave Squires [address] & Marked T wave abnormality, consider anterolateral ischemia Prolonged QT Abnormal ECG When compared with ECG of 06-JUL-2023 14:34, T wave inversion less evident in Lateral Confirmed by Yoan GRIJALVA, KIERA Rainey ([id number]) on 07/08/2023 12:23:36 PM Assessment/Plan Junctional bradycardia Abnormal EKG- ST/T wave changes concerning for ischemia- [facility] showed stable CAD Ventric (more content not included)... [facility] 07-10-2023 Note Hospital Medicine Daily Progress Note - 07/10/2023 8:08 AM; Room: [address] [place] [address] Admission: 07/06/2023 12:25 AM; Length of stay: 4 days THE HOSPITALIST TEAM PREFERS TO USE [employer] CHAT FOR COMMUNICATION 7AM-7PM. IF I DO NOT RESPOND WITHIN 15 MINUTES, PLEASE PAGE ME/CALL THROUGH THE CHIEF CONTROLLER CENTER. FROM 7PM-7AM, PLEASE PAGE [phone](COVR) Code Status: Full Code Barriers to Discharge: [...] LDL 95 07/06/2023 No results found for: [id number] , IRON , TIBC , C3 , [...] need to arrange for her transportation needs; marketing copywriter provided printed information to Pt for local [employer] for Pt (more content not included)... [facility] 07-09-2023 Note Patient admitted to the hospital for: Bradycardia. Chart echo from 06/29/2023 reports: EF 60%. Echo report does Not qualify for Cardiac Rehab services per CMS eligibility criteria. A Cardiac Rehab referral must also meet CMS criteria. Marline Suarez, RN, BSN Cardiopulmonary Rehab Coordinator [facility] 07-09-2023 Note Cardiology Inpatient Progress Note Subjective [...] 86 QT Interval 466 QTC CALCULATION(BAZETT) 476 R-Squires 34 T Wave Squires [address] & Marked [...] HFpEF as tolerated 4) outpatient follow-up with [place] [facility] Hemodynamic Data: RA: 17 mmHg RV: [...] of bradycardia. Patient has been transferred to [facility] for consideration of pacemaker placement. As per patient, her heart rate was 18 at the outside hospital, however I could not confirm from any documentation. During the current hospitalization, so far patient's heart rate has been ranging 40-50. EKG performed in the ED showed diffuse T wave inversions with junctional rhythm. Telemetry shows sinus bradycardia a (more content not included)... [facility] 07-09-2023 Note Hospital Medicine Daily Progress Note - 07/09/2023 11:10 AM; Room: [address] [place] [address] Admission: 07/06/2023 12:25 AM; Length of stay: 3 days THE HOSPITALIST TEAM PREFERS TO USE [employer] CHAT FOR COMMUNICATION 7AM-7PM. IF I DO NOT RESPOND WITHIN 15 MINUTES, PLEASE PAGE ME/CALL THROUGH THE CHIEF CONTROLLER CENTER. FROM 7PM-7AM, PLEASE PAGE [phone](COVR) Code Status: Full Code Barriers to Discharge: [...] LDL 95 07/06/2023 No results found for: [id number] , IRON , TIBC , C3 , [...] Planning TBD Signed Jayden Haider MD [facility] 07/09/2023 11: (more content not included)... [facility] 07-08-2023 Note ---- Attestation signed by Kiera [...] 07/08/23 0802 84/55 36.4 ???C (97.5 ???F) [facility] 67 21 98 % -- 07/08/23 0801 [...] 86 QT Interval 466 QTC CALCULATION(BAZETT) 476 R-Squires 34 T Wave Squires [address] & Marked T wave abnormality, consider anterolateral ischemia Prolonged QT Abnormal ECG When compared with ECG of 06-JUL-2023 14:34, T wave inversion less evident in Lateral Lab Results Component Value Date CKTOTAL 36.0 07/06/2023 TROPONINI 0.12 (HH) 07/06/2023 Complete Echo (TTE) w/wo Imaging Agent, Strain, 3D, Bubble Study Result Date: 06/29/2023 1 1 [facility] Heart [facility] [address] [place] [address] [phone] (fax) Echocardiogram-[facility] Name: VIVIAN VANN Study Date: 06/29/2023 12:30 PM B/P: 135 mmHg/89 mmHg HR: Date of : 1960 Location: [facility] Height: 67 in. Age: 63 year(s) Patient [...] Valve: The mitr (more content not included)... [facility] 07-08-2023 Note Hospital Medicine Daily Progress Note - 07/08/2023 8:42 AM; Room: [facility]/3120- Admission: 07/06/2023 12:25 AM; Length of stay: 2 days THE HOSPITALIST TEAM PREFERS TO USE [employer] CHAT FOR COMMUNICATION 7AM-7PM. IF I DO NOT RESPOND WITHIN 15 MINUTES, PLEASE PAGE ME/CALL THROUGH THE CHIEF CONTROLLER CENTER. FROM 7PM-7AM, PLEASE PAGE [phone](COVR) Code Status: Full Code Barriers to Discharge: [...] LDL 95 07/06/2023 No results found for: [id number] , IRON , TIBC , C3 , [...] Planning TBD Signed Jayden Haider MD [facility] 07/08/2023 8:42 AM [facility] 07-07-2023 Note ---- Attestation signed by Kiera [...] 07/06/23 1725 91/66 36.4 ???C (97.6 ???F) [facility] 64 13 97 % -- -- 07/06/23 [...] 84 QT Interval 434 QTC CALCULATION(BAZETT) 451 R-Squires 23 T Wave Squires [address] & Marked [...] Bubble Study Result Date: 06/29/2023 1 1 [facility] Heart [facility] [address] [place] [address] [phone] (fax) Echocardiogram-[facility] Name: VIVIAN VANN Study Date: 06/29/2023 12:30 PM B/P: 135 mmHg/89 mmHg HR: Date of : 1960 Location: [facility] Height: 67 in. Age: 63 year(s) Patient [...] abnormality. Right Ventricle: (more content not included)... [facility] 07-07-2023 Note Hospital Medicine Daily Progress Note - 07/07/2023 10:19 AM; Room: [address] [place] [address] Admission: 07/06/2023 12:25 AM; Length of stay: 1 days THE HOSPITALIST TEAM PREFERS TO USE [employer] CHAT FOR COMMUNICATION 7AM-7PM. IF I DO NOT RESPOND WITHIN 15 MINUTES, PLEASE PAGE ME/CALL THROUGH THE CHIEF CONTROLLER CENTER. FROM 7PM-7AM, PLEASE PAGE [phone](COVR) Code Status: Full Code Barriers to Discharge: [...] 4.6 3.7 CHLORIDE (more content not included)... [facility] 07-06-2023 Note communication receiv ed that Patient stating does not have transportation to return home at discharge At 07/02/2023 discharge, [facility] provided a one-time courtesy taxi cab transportation for Patient to return to her home (Patient's residence is 57 [address]-way from [facility] and cost for taxi cab was $146); [facility] is not able to provide another taxi cab. The following information was printed and provided to the Patient to make her own transportation arrangements for once she is medically cleared for discharge: [facility] hospital address is [address] [place] [address] [employer] Medicare to ask if non-emergency medical transportation is a covered benefit of the specific plan (https://www.[employer]/contact-us/ohi o/) Taxis in [place] (https://co.jonnie.nh./3086/Taxi) [employer] [phone]-[phone] ([phone]) [employer] [phone] [facility] 07-06-2023 Note 07/06/23 1625 Referral Data Referral Source cone worker Patient Information Primary Caregiver Self Activities [...] need to arrange for her transportation needs; marketing copywriter provided printed information to Pt for local taxi Gather companies for Pt to consider; [facility] unable to pay for another one-time courtesy taxi cab for 57miles one-way trip) [facility] 07-06-2023 Note 1526 marketing copywriter attempted to meet with Pt to discuss discharge planning (including Patient will need to arrange her transportation once she is medically cleared to discharge to home); Patient not in bed; unable to complete [id number]-zehu 1542 marketing copywriter attempted to meet with Pt to discuss discharge planning (including Patient will need to arrange her transportation once she is medically cleared to discharge to home); Patient caring for toileting hygiene; unable to complete [id number] [facility] 07-06-2023 Note 07/06/23 1219 Admission Assessment Questions [...] Discharge? Yes Does the patient have a bottle caser assigned to them through their insurance? No [...] to send link and activate MyChart? Yes [facility] 07-06-2023 Note ---- Attestation signed by Jayden [...] Progress Note - 07/06/2023 11:37 AM; Room: [address] [place] [address] Admission: 07/05/2023 11:50 PM; Length of stay: 1 days THE HOSPITALIST TEAM PREFERS TO USE [employer] CHAT FOR COMMUNICATION 7AM-7PM. IF I DO NOT RESPOND WITHIN 15 MINUTES, PLEASE PAGE ME/CALL THROUGH THE CHIEF CONTROLLER CENTER. FROM 7PM-7AM, PLEASE PAGE [phone](COVR) Code Status: Full Code Barriers to Discharge: [...] -Continue home medi (more content not included)... [facility] 07-06-2023 Note . Hospital Medicine History and Physical 07/06/2023 1:19 AM THE HOSPITALIST TEAM PREFERS TO USE [employer] CHAT FOR COMMUNICATION 7AM-7PM. IF I DO NOT RESPOND WITHIN 15 MINUTES, PLEASE PAGE ME/CALL THROUGH THE CHIEF CONTROLLER CENTER. FROM 7PM-7AM, PLEASE PAGE [phone](COVR) Chief Complaint No chief complaint on file. History of Present Illness Vivian Vann is an 63 y.o. female who came from home with CP. This is a 63 years old female lady with a medical history of hypertension, tobacco smoking, A-fib, CHF. Came into the [facility] as a direct admit transfer from outside [...] Bradycardia 07/06/2023 NSTEMI (non-ST elevated myocardial infarction) ([facility]) 06/29/2023 Other forms of angina pectoris 06/29/2023 Hypomagnesemia 06/29/2023 Acute midline low back pain without sciatica 06/29/2023 Coronary arteriosclerosis 11/24/2021 Hyperlipidemia 11/24/2021 Type 2 diabetes mellitus ([facility]) 11/24/2021 Acute non-ST segment elevation myocardial infarction ([facility]) 11/24/2021 Cigarette smoker 11/24/2021 Assessment and Plan [...] this hospital stay by a member of [facility]. Past Medical History No past medical [...] (CARDIA) Difficulty of (more content not included)... [facility] 07-05-2023 Evaluation + Plan note Extrac florinda [...] Reflex 07/05/23 * Drug Screen Urine 07/05/23 [facility]02-19-2024 NotePatient admitted to the hospital for: NSTEMI. Review of the last noted chart Echo from 06/29/2023 reports: EF 60%. Reported echo result does not qualify for Cardiac Rehab services per [facility] eligibility criteria for CHF. Marline Suarez, RN, BSN Cardiopulmonary Rehab CoordinatorK[facility]02-19-2024 Note07/02/23 1116 Referral Data Referral Source cone worker Patient Information Primary Caregiver Self Activities of Daily Living Assistive Device Not applicable Living Arrangement (Current/Prior to Hospitalization) Private residence;Home self care Behavior Oriented Communication Talks;Understands speaking Discharge Planning Support Systems Therapist (planning discharge to home; communication rcvd Pt not wanting [facility] services) Type of Residence/Post Acute Needs Private residence Will patient need Precert for Post Acute needs? No Patient's goal for discharge home RucCC screened; Pt declining HHC, Consult resolved 1340 Communication received that Pt needing transportation to home since was transferred here from [facility], does not drive, lives alone, does not have friends or family who can transport ([phone]) PC to [employer]; from [address] [place] [address] to [address] [place] [address] will be $146 Head Athletic Trainer/Strength Coach provided verbal estimate to vacuum metalizing supervisor, verbal approval from vacuum metalizing supervisor [phone] taxi cab transportation arranged; bedside RN notified Confirmation #: [id number] Passenger: VIVIAN VANN Phone Number: [phone] Pickup Date/Time: 07/02/2023 3:00 PM Pickup Address: [facility], [address] [place] [address], [place], [address] Drop Off Address: [address] [place] [address]. Arlene Notes: please pickup at [facility]02-19-2024 Note07/02/23 1017 Admission Assessment Questions Verify [...] Discharge? Yes Does the patient have a bottle caser assigned to them through their insurance? No [...] able to send link and activate MyChart? [facility]02-19-2024 Note Attestation signed by Merritt Guerrero MD [...] Value Ventricular Rate 61 Atrial Rate 61 LA Interval 150 QRS DURATION 88 QT Interval 476 QTC CALCULATION(BAZETT) 479 P Squires 68 R-Squires 25 T Wave Squires 128 Impression Normal sinus rhythm Right atrial [...] Bubble Study Result Date: 06/29/2023 1 1 [facility] Heart Station [address] [place] [address] [phone] (fax) Echocardiogram-[facility] Name: VIVIAN VANN Study Date: 06/29/2023 12:30 PM B/P: 135 mmHg/89 mmHg HR: Date of : 1960 Location: [facility] Height: 67 in. Age: 63 year(s) Patient [...] ventricular systolic function. Dop (more content not included)...[facility]02-18-2024 NoteHospital Medicine Daily Progress Note - 07/01/2023 12:00 PM; Room: [address] [place] [address] Admission: 06/29/2023 11:04 AM; Length of stay: 2 days THE HOSPITALIST TEAM PREFERS TO USE EPIC CHAT FOR COMMUNICATION 7AM-7PM. IF I DO NOT RESPOND WITHIN 15 MINUTES, PLEASE PAGE ME/CALL THROUGH THE CHIEF CONTROLLER CENTER. FROM 7PM-7AM, PLEASE PAGE [phone](COVR) Code Status: Full Code Barriers to Discharge: [...] Principal Problem: NSTEMI (non-ST elevated myocardial infarction) ([facility]) Active Problems: Hyperlipidemia Type 2 diabetes mellitus ([facility]) Other forms of angina pectoris Hypomagnesemia Acute [...] LDL 114 11/02/2021 No results found for: [id number] , IRON , TIBC , C3 , C4 , WNEDI , CANCA , ASO , PSA , CEA , CA125 , CA199 , AFP , CA153 Imaging ECG 12 lead Normal sinus rhythm Right atrial (more content not included)...[facility] 07-01-2023 Note Attestation signed by Merritt Guerrero [...] Value Ventricular Rate 61 Atrial Rate 61 LA Interval 150 QRS DURATION 88 QT Interval 476 QTC CALCULATION(BAZETT) 479 P Squires 68 R-Squires 25 T Wave Squires 128 Impression Normal sinus rhythm Right atrial [...] Bubble Study Result Date: 06/29/2023 1 1 [facility] Heart Station [address] [place] [address] [phone] (fax) Echocardiogram-[facility] Name: VIVIAN VANN Study Date: 06/29/2023 12:30 PM B/P: 135 mmHg/89 mmHg HR: Date of : 1960 Location: [facility] Height: 67 in. Age: 63 year(s) Patient [...] Right Ventricle: The r (more content not included)...[facility]02-17-2024 Note Attestation signed by Merritt Guerrero MD [...] Value Ventricular Rate 61 Atrial Rate 61 LA Interval 150 QRS DURATION 88 QT Interval 476 QTC CALCULATION(BAZETT) 479 P Squires 68 R-Squires 25 T Wave Squires 128 Impression Normal sinus rhythm Right atrial [...] Bubble Study Result Date: 06/29/2023 1 1 [facility] Heart [facility] [address] [place] [address] [phone] (fax) Echocardiogram-[facility] Name: VIVIAN VANN Study Date: 06/29/2023 12:30 PM B/P: 135 mmHg/89 mmHg HR: Date of : 1960 Location: [facility] Height: 67 in. Age: 63 year(s) Patient [...] Mild Mild N (more content not included)... [facility]02-17-2024 NoteHospital Medicine Daily Progress Note - 06/30/2023 11:32 AM; Room: [facility]/3120- Admission: 06/29/2023 11:04 AM; Length of stay: 1 days THE HOSPITALIST TEAM PREFERS TO USE [employer] CHAT FOR COMMUNICATION 7AM-7PM. IF I DO NOT RESPOND WITHIN 15 MINUTES, PLEASE PAGE ME/CALL THROUGH THE CHIEF CONTROLLER CENTER. FROM 7PM-7AM, PLEASE PAGE [phone](COVR) Code Status: Full Code Barriers to Discharge: [...] Principal Problem: NSTEMI (non-ST elevated myocardial infarction) ([facility]) Active Problems: Hyperlipidemia Type 2 diabetes mellitus ([facility]) Other forms of angina pectoris Hypomagnesemia Acute [...] LDL 114 11/02/2021 No results found for: [id number] , IRON , TIBC , C3 , C4 , WENDI , CANCA , ASO , PSA , CEA , CA125 , CA199 , AFP , CA153 Imaging ECG 12 lead Normal sinus rhythm Right atrial enlargement ST & T wave abnormality, consider ante (more content not included)...[facility]02-16-2024 NotePatient: Vivian Vann Procedure Information Date/Time: 06/29/23 1655 Procedure: Coronary angiography Location: [facility] BILLING ASSISTANT 3 / [facility] (Cath) Providers: Ortiz Aquino MD [...] who. Plan discussed with attending. [facility] Note Hospital Medicine History and Physical 06/29/2023 12:51 PM THE HOSPITALIST TEAM PREFERS TO USE [employer] CHAT FOR COMMUNICATION 7AM-7PM. IF I DO NOT RESPOND WITHIN 15 MINUTES, PLEASE PAGE ME/CALL THROUGH THE CHIEF CONTROLLER CENTER. FROM 7PM-7AM, PLEASE PAGE [phone](COVR) Chief Complaint Direct admission from [facility] for NSTEMI requiring cardiac cath History of Present Illness Vivian Vann is an 63 y.o. female who came from [facility] as direct asmission for NSTEMI. Patient presented 06/28/23 to [place] ED for c/o chest pain and lower back pain. Patient troponin level found to be 557 and EKG showed new ischemia and inverted T-waves, NSTEMI. She was given nitroglycerin and started on heparin drip. Patient is 1 year s/p stent placement at [facility] on plavix and aspirin. Dr. Yoo with cardiology agreed to patient transfer here to [facility] with hospital medicine admitting and cardiology consult [...] Low back pending. Laboratory workup here at [facility] shows CBC unremarkable w/ exception of NCHC [...] nursing note reviewed. Exam conducted with a cyber intelligence analyst present. Constitutional: General: She is not in [...] Date Noted NSTEMI (non-ST elevated myocardial infarction) ([facility]) 06/29/2023 Assessment and Plan Chest pain Low Back Pain NSTEMI -Troponin 557 at [facility], troponin now 0.07 - aPTT 67.3, [...] Heparin drip with titratio (more content not included)...[facility]04-05-2023 NoteMicrobiology PROCEDURE: Blood Culture Charcoal [R1] SOURCE: [...] Locations R1: This test was performed at: [facility], [address] [place] [address], [id number] [place] [address], [id number] Meza StreetComment on above:Performed By: #### [id number] ####[address] [id number] NoteMicrobiology PROCEDURE: Blood Culture Charcoal [R1] SOURCE: Blood BODY SITE: Arm L COLLECTED DATE/TIME: 08/09/2022 14:09 EDT RECEIVED DATE/TIME: 08/09/2022 14:17 EDT START DATE/TIME: 08/09/2022 14:17 EDT FREE TEXT SOURCE: lt ac Nic PA-C, Clinton C Nic PA-C, Clinton C FINAL REPORTS Final Report [] Verified Date/Time: 08/16/2022 15:58 EDT No growth at 7 days. Performing Locations R1: This test was performed at: [facility], [address] [place] [address], [id number] [place] [address], [id number] Meza StreetComment on above:Performed By: #### [id number] ####[address] [id number] Hospital Discharge instructions Patient Education 08/09/2022 16:50:59 [...] Follow these instructions at home: Medicines Take crag-tog-zdlyzdl and prescription medicines (inhaled or pills) only [...] 02/07/2006 Document Revised: 04/12/2018 Document Reviewed: 06/04/2017 [employer] Patient Education 2020 [employer]. Follow Up Care 08/09/2022 13:09:28 With:Екатерина Robert Address: [address] [place] [address] Business (1) When:08/12/2022 16:50:37 Comments:Call the office [...] you develop any new or worsening symptoms. [facility]03-29-2023 Evaluation + Plan noteExtracted from: Title:ED [...] Charcoal 08/09/22 * Blood Culture Charcoal 08/09/22 [facility]06-23-2022 NoteMR#: [id number] I [facility] Pt. Name: Vivian Vann Admitted: 11/01/2021 Discharged: 11/03/2021 Date of : 1960 Physician: Tamie Fajardo MD DISCHARGE SUMMARY PRINCIPAL DIAGNOSIS: Lwf-GK-eytgqtsjw myocardial infarction. SECONDARY DIAGNOSES: 1. Questionable small subsegmental PE in the right lower lobe, favored to be chronic per CT angio done outside facility. 2. Peptic ulcer disease. 3. Depression. 4. Chronic obstructive pulmonary disease. 5. THC use. 6. Nicotine use. HOSPITAL COURSE: Again, the patient was admitted to the hospital on 11/01/2021, with chest pain and she was found to have a [id number] MN. The patient underwent cardiac catheterization and had [...] Fajardo MD Date Trans: 11/03/2021 01:10 P/laura [id number] cc: Gasper Avendano M.D. [address] [place] [id number] Екатерина Robert M.D. [place] [id number] [facility] [id number] Narrative No data available for this section [facility] No data available for this section [facility] No data available for this section [facility] Summary Purpose Family History No Family [...] content) DATE CREATED AUTHOR 09/12/2018 Sury Vasquez [facility] DATE CREATED AUTHOR AUTHOR'S ORGANIZ ATION 01/06/2022 [facility] DATE CREATED AUTHOR AUTHOR'S ORGANIZ ATION 09/05/2022 [facility] DATE CREATED AUTHOR AUTHOR'S ORGANIZ ATION 07/13/2023 [facility] DATE CREATED AUTHOR AUTHOR'S ORGANIZ ATION 07/13/2023 [facility] DATE CREATED AUTHOR AUTHOR'S ORGANIZ ATION 07/19/2023 [facility] Patient Care team informatio n (unrecognized section and content) Personnel Name: Екатерина Robert MD Address: Address: [address] [place] [address] Personnel Name: Екатерина Robert MD Address: Address: [address] [place] [address] FOR RECORDS PERTAINING TO PATIENTS WHO ARE [...] BE BASED ON THE PRIMARY CLINICAL RECORDS. [facility]. provides no warranty or guarantee of the accuracy or completeness of information in this document.
[2023-07-23] MEDS: BENZONATATE 100 MG CAPSULE 200 MG PO (18:59)
[2023-07-23] MEDS: HYDROXYZINE HCL 10 MG TABLET PO (18:59)
[2023-07-23] MEDS: METHYLPREDNISOLONE SOD SUCC PF 125 MG/2 ML VIAL IVP (18:59)
[2023-07-23 19:07] LABS: Basophils Percent Auto 0.2 % (0.2-2.0); Eosinophils Percent Auto 0.1 % (0.9-7.0); Hematocrit 37.5 % (36.0-48.0); Immature Granulocytes Abs Auto 0.07 10^3/uL (0.00-0.03); Immature Granulocytes Pct Auto 0.4 % (0.0-0.5); Lymphocytes Absolute Auto 2.7 10^3/uL (1.2-3.8); Lymphocytes Percent Auto 13.8 % (20.5-60.0); Mean Corpuscular HGB Conc 29.3 g/dL (29.9-35.2); Mean Corpuscular Hemoglobin 27.4 pg (26.7-34.0); Mean Corpuscular Volume 93.5 fL (81.0-99.0); Mean Platelet Volume 9.6 fL (9.5-13.5); Monocytes Absolute Auto 1.3 10^3/uL (0.3-0.8); Monocytes Percent Auto 6.7 % (1.7-12.0); Neutrophils Absolute Auto 15.6 10^3/uL (1.4-6.5); Neutrophils Percent Auto 78.8 % (43.0-75.0); Platelet Count 353 10^3/uL (150-450); Red Blood Count 4.01 10^6/uL (4.20-5.40); Red Cell Distribution Width 15.8 % (11.0-15.0); White Blood Count 19.8 10^3/uL (4.0-11.0)
--- NOTE | 2023-07-23 19:11 | PC.NURSE ---
Pt. spo2 was at 88% on room air, patient put on oxygen 2LPM/ nc which did bring spo2 up to 93%. She states that is just makes her feel better to have the oxygen on also.
[2023-07-23] MEDS: ONDANSETRON PF 4 MG/2 ML VIAL IV (19:26)
[2023-07-23 19:35] LABS: Alanine Aminotransferase 55 U/L (14-59); Albumin Level 3.6 g/dL (3.4-5.0); Alkaline Phosphatase 89 U/L (46-116); Anion Gap 10.8; Aspartate Amino Transferase 38 U/L (15-37); BUN Creatinine Ratio 20.4; Bilirubin Total 0.2 mg/dL (0.2-1.0); Calcium 9.1 mg/dL (8.5-10.1); Carbon Dioxide 30.5 mmol/L (21.0-32.0); Chloride 105 mmol/L (98-107); Estimated GFR (African America >60 (>=60); Estimated GFR (Non-African Ame 51 (>=60); Globulin 3.6 g/dL; Glucose 125 mg/dL (74-106); Potassium 4.3 mmol/L (3.5-5.1); Sodium 142 mmol/L (136-145); Total Protein 7.2 g/dL (6.4-8.2)
[2023-07-23 19:46] LABS: Adenovirus NOT DETECTED (NOT DETECTE); Bordetella parapertussis NOT DETECTED (NOT DETECTE); Coronavirus 229E NOT DETECTED (NOT DETECTE); Coronavirus HKU1 NOT DETECTED (NOT DETECTE); Coronavirus NL63 NOT DETECTED (NOT DETECTE); Coronavirus OC43 NOT DETECTED (NOT DETECTE); Human Metapneumovirus NOT DETECTED (NOT DETECTE); Human Rhinovirus/Enterovirus NOT DETECTED (NOT DETECTE); Influenza A NOT DETECTED (NOT DETECTE); Influenza B NOT DETECTED (NOT DETECTE); Mycoplasma pneumoniae NOT DETECTED (NOT DETECTE); Parainfluenza Virus 1 NOT DETECTED (NOT DETECTE); Parainfluenza Virus 2 NOT DETECTED (NOT DETECTE); Parainfluenza Virus 3 NOT DETECTED (NOT DETECTE); Parainfluenza Virus 4 NOT DETECTED (NOT DETECTE); Respiratory Syncytial Virus NOT DETECTED (NOT DETECTE); SARS-CoV-2 NOT DETECTED (NOT DETECTE)
[2023-07-23] MEDS: LORAZEPAM 2 MG/ML 1 ML VIAL 1 MG IV (19:52)
[2023-07-23] MEDS: HYDROCODONE/ACET 5-325 MG TABLET 1 TAB PO (19:52)
[2023-07-23] MEDS: ALBUTEROL SULFATE 2.5 MG/3 ML VIAL NEB IH (20:00)
--- NOTE | 2023-07-23 20:03 | RESP.RT ---
ON 2L NASAL CANNULA
[2023-07-23 20:17] LABS: Troponin I High Sensitivity 305.2 pg/mL (4.0-51.3)
--- NOTE | 2023-07-23 20:24 | PC.NURSE ---
Patient given food per her request. She is resting more comfortably and less anxious at this time. Denies further needs now, will continue to monitor.
--- NOTE | 2023-07-23 20:54 | ECG_ITS ---
[facility] Test Date: 2023-07-23 Pat Name: EMERY JETT Department: Room: - Gender: Female Boot Turner: : 1960 Requested By: ЕКАТЕРИНА ROBERT Order Number: [id number] Reading MD: EBONIE BOLIVAR Measurements Intervals [place] Rate: 81 P: 37 WY: 174 QRS: 53 QRSD: 80 T: -83 QT: 368 QTc: 405 Interpretive Statements [id number] Electronic atrial pacemaker 4364 Twave abnormality, possible anterolateral ischemia 4664 Twave abnormality, possible inferior ischemia 9150 abnormal ECG Electronically Signed On 07-25-2023 23:11:57 EDT by EBONIE BOLIVAR
[2023-07-23 21:00] LABS: Partial Thromboplastin Time 24.5 sec (22.3-36.2); Prothrombin Time 9.4 sec (9.0-11.6)
[2023-07-23 21:06] LABS: INR <0.93
[2023-07-23 21:54] LABS: Troponin I High Sensitivity 358.2 pg/mL (4.0-51.3)
[2023-07-23 21:55] LABS: Lactate/Lactic Acid 2.4 mmol/L (0.4-2.0)
--- OUTSIDE RECORDS SUMMARY | 2023-07-23 22:23 | XMS_ITS | CCD ---
Author Name Unknown Address [address] [place] [address] Organization [facility] Care Team Providers Care Warehouse Shipper Name Role Phone KEISHA DORADO JR Attending Unavailable PATRICIA CORDERO Primary Care Unavailable TAMIE FAJARDO Attending Unavailable UMAIR MANDUJANO Admitting Unavailable GASPER AVENDANO Referring Unavailable ЕКАТЕРИНА ROBERT Primary Care Unavailable Екатерина Robert Primary Care Physician [phone] DR ЕКАТЕРИНА CHARLES Consulting Unavailable JOSELINEY ., [...] Consulting Unavailable ZENOBIA REDDY Consulting Unavailable SISTER, ELYLA Consulting Unavailable HOY ., DR WILLAMS Consulting [...] source) bee venom Drug allergy (disorder) 1 [facility] Repository (1 source) house dust allergenic extract; 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: [HOUSE DUST] Drug Allergy 4 [facility] Repository (1 source) HAY FEVER AND ALLERGY RELIEF; 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: [HAY FEVER AND ALLERGY RELIEF] Propensity to adverse reactions to drug (disorder) 4 [facility] Repository Medications Current Medications Medication Drug Class(es) [...] oral solution (2 sources) alpha-Adrenergic Agonist, Uncompetitive K-jduged-B-aspart ate Receptor Antagonist, Sigma-1 Agonist Start: 08-10-19 [...] day(s), # 14 tab(s), Refills(s) 0, Pharmacy: [facility], 170.2, cm, 08/09/22 13:13:00 EDT, Height/Length [...] day(s), # 15 tab(s), Refills(s) 0, Pharmacy: [facility] 1155, 170.2, cm, 08/09/22 13:13:00 EDT, [...] disease (6 sources) Atherosclerotic heart disease of [place] coronary artery without angina pectoris; 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: [Old [...] 2 Chronic Other aftercare (1 source) Other prison (current) drug therapy; 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: [OTH COMPLETION MANAGER CURRENT DRUG THERAPY] Onset: 3 Episodic Other aftercare (1 source) terminal supervisor (current) use of aspirin; 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: [LONG-TERM CURRENT USE OF ASPIRIN] Onset: 3 Episodic Other aftercare (1 source) senior living (current) use of antithrombotics/antipl atelets; 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: [COMPLETION MANAGER ANTITHROMBOT/ANTIPLATL ETS] Onset: 3 Episodic Other aftercare (1 source) terminal supervisor (current) use of oral hypoglycemic drugs; 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: [COMPLETION MANAGER USE ORAL HYPOGLYCEMIC DX] Onset: 3 Episodic [...] Pts phone line is no t working [facility] 07-12-2023 36 Unable to reach pt o r leave message, phone line not in service [facility] 36 Patients phone is no t in working order. Tried calling pts ER contact but it is a food pantry and was only a VM option. Did not leave message. [facility] 07-11-2023 30 The patient is Moderately Stable - Low risk of patient condition declining or worsening The patient's goals for the shift include pain control The clinical goals for the shift include maintain pacemaker precautions Over the shift, the patient did not make progress toward the following goals. Barriers to progression include na. Recommendations to address these barriers include na. [facility] 30 The patient is Moderately Stable [...] safe level of function Outcome: Progressing Normal [facility] BASIC METABOLIC PANELon 06-15 Anion gap [Moles/Vol] 15 mmol/L Normal 7-20 [facility] Comment on above: Performed By: #### L [id number] #### [facility] ([facility]) [address] [place] [address] Calcium [Mass/Vol] 9.4 mg/dL Normal 8.6-10.3 [facility] Comment on above: Performed By: #### L [id number] #### [facility] ([facility]) [address] [place] [address] Chloride [Moles/Vol] 97 mmol/L Low 98-107 [facility] Comment on above: Performed By: #### L [id number] #### [facility] ([facility]) [address] [place] [address] CO2 [Moles/Vol] 27 mmol/L Normal 21-31 [facility] Comment on above: Performed By: #### L [id number] #### [facility] ([facility]) [address] [place] [address] Creatinine [Mass/Vol] 1.15 mg/dL Normal 0.60-1.20 [facility] Comment on above: Performed By: #### L [id number] #### [facility] ([facility]) [address] [place] [address] GLOMERULAR FILTRATION RATE ML/MIN/1.73 SQ M.PREDICTED 53.9 mL/min/1.73m*2 Low >60.0 [facility] Comment on above: Result Comment: The [facility]???s estimated glomerular filtration rate (eGFR) will no [...] individuals. Performed By: #### L [id number] #### [facility] ([facility]) [address] [place] [address] Glucose [Mass/Vol] 143 mg/dL High 70-100 [facility] Comment on above: Performed By: #### L [id number] #### [facility] ([facility]) [address] [place] [address] Potassium [Moles/Vol] 3.9 mmol/L Normal 3.5-5.1 [facility] Comment on above: Performed By: #### L [id number] #### [facility] ([facility]) [address] [place] [address] Sodium [Moles/Vol] 135 mmol/L Low 136-145 [facility] Comment on above: Performed By: #### L [id number] #### [facility] ([facility]) [address] [place] [address] Urea nitrogen [Mass/Vol] 32 mg/dL High 7-25 [facility] Comment on above: Performed By: #### L [id number] #### [facility] ([facility]) [address] [place] [address] UREA NITROGEN/CREATININE (MASS RATIO) IN SER/PLAS 27.8 Normal [facility] Comment on above: Performed By: #### L [id number] #### [facility] ([facility]) [address] [place] [address] CBC WITH AUTO DIFFERENTIALon 07-11-2023 Basophils (Bld) [#/Vol] 0.03 10*3/uL Normal 0.00-0.20 [facility] Comment on above: Performed By: #### L [id number] #### [facility] ([facility]) [address] [place] [address] Basophils/100 WBC (Bld) 0.3 % Normal 0.0-1.0 [facility] Comment on above: Performed By: #### L [id number] #### [facility] ([facility]) [address] [place] [address] Eosinophils (Bld) [#/Vol] 0.32 10*3/uL Normal 0.00-0.50 [facility] Comment on above: Performed By: #### L [id number] #### [facility] ([facility]) [address] [place] [address] Eosinophils/100 WBC (Bld) 2.8 % Normal 0.0-6.0 [facility] Comment on above: Performed By: #### L [id number] #### [facility] ([facility]) [address] [place] [address] Erythrocyte distribution width (RBC) [Ratio] 15.3 % High 11.5-15.0 [facility] Comment on above: Performed By: #### L [id number] #### [facility] ([facility]) [address] [place] [address] ERYTHROCYTE MEAN CORPUSCULAR HEMOGLOBIN CONCENTRATION (G/DL) BY AUTOMATED 32.0 g/dL Normal 32.0-35.0 [facility] Comment on above: Performed By: #### L [id number] #### [facility] ([facility]) [address] [place] [address] Hematocrit (Bld) [Volume fraction] 40.9 % Normal 36.0-48.0 [facility] Comment on above: Performed By: #### L [id number] #### [facility] ([facility]) [address] [place] [address] Hemoglobin (Bld) [Mass/Vol] 13.1 g/dL Normal 12.0-15.0 [facility] Comment on above: Performed By: #### L [id number] #### [facility] ([facility]) [address] [place] [address] Immature granulocytes (Bld) [#/Vol] 0.04 10*3/uL Normal 0.00-0.20 [facility] Comment on above: Performed By: #### L [id number] #### [facility] ([facility]) [address] [place] [address] Immature granulocytes/100 WBC (Bld) 0.3 % Normal 0.0-1.0 [facility] Comment on above: Performed By: #### L [id number] #### [facility] ([facility]) [address] [place] [address] Lymphocytes (Bld) [#/Vol] 3.16 10*3/uL Normal 1.20-4.00 [facility] Comment on above: Performed By: #### L [id number] #### [facility] ([facility]) [address] [place] [address] Lymphocytes/100 WBC (Bld) 27.4 % Normal 20.0-45.0 [facility] Comment on above: Performed By: #### L [id number] #### [facility] ([facility]) [address] [place] [address] MCH (RBC) [Entitic mass] 27.9 pg Normal 27.0-33.0 [facility] Comment on above: Performed By: #### L [id number] #### [facility] ([facility]) [address] [place] [address] MCV (RBC) [Entitic vol] 87.0 fL Normal 82.0-98.0 [facility] Comment on above: Performed By: #### L [id number] #### [facility] ([facility]) [address] [place] [address] Monocytes (Bld) [#/Vol] 0.85 10*3/uL Normal 0.10-1.00 [facility] Comment on above: Performed By: #### L [id number] #### [facility] ([facility]) [address] [place] [address] Monocytes/100 WBC (Bld) 7.4 % Normal 5.0-12.0 [facility] Comment on above: Performed By: #### L [id number] #### [facility] ([facility]) [address] [place] [address] Neutrophils (Bld) [#/Vol] 7.12 10*3/uL Normal 1.60-7.60 [facility] Comment on above: Performed By: #### L [id number] #### [facility] ([facility]) [address] [place] [address] Neutrophils/100 WBC (Bld) 61.8 % Normal 40.0-72.0 [facility] Comment on above: Performed By: #### L [id number] #### [facility] [address] [place] [address] NRBC (PER 100 WBCS) BY AUTOMATED COUNT 0.0 % Normal 0 [facility] Comment on above: Performed By: #### L [id number] #### [facility] ([facility] [address] [place] [address] PLATELETS (10*3/UL) IN BLOOD AUTOMATED COUNT 339 10*3/uL Normal 150-400 [facility] Comment on above: Performed By: #### L [id number] #### [facility] ([facility]) [address] [place] [address] RBC (Bld) [#/Vol] 4.70 10*6/uL Normal 3.80-5.00 [facility] Comment on above: Performed By: #### L [id number] #### [facility] ([facility]) [address] [place] [address] WBC (Bld) [#/Vol] 11.52 10*3/uL High 4.00-10.60 [facility] Comment on above: Performed By: #### L [id number] #### [facility] ([facility]) [address] [place] [address] 30on 07-10-2023 30 Problem: Pain - Adul [...] complex ne (more content not included)... Normal [facility] 30 Daily Case Managemen t Update Multidisciplinary [...] Consultation Consultation and Management 07/06/23 1050 Normal [facility] 30 The patient is Moderately Stable - [...] and behaviors that affect risk of falls Keavy fall precautions as indicated by assessment Educate [...] and prevent overall improvement and discharge Normal [facility] BASIC METABOLIC PANELon 06-15 Anion gap [Moles/Vol] 13 mmol/L Normal 7-20 [facility] Comment on above: Performed By: #### L [id number] ####[facility] ([facility])[address] [place] [address] Calcium [Mass/Vol] 9.9 mg/dL Normal 8.6-10.3 [facility] Comment on above: Performed By: #### L [id number] ####[facility] ([facility])[address] [place] [address] Chloride [Moles/Vol] 97 mmol/L Low 98-107 [facility] Comment on above: Performed By: #### L [id number] ####[facility] ([facility])[address] [place] [address] CO2 [Moles/Vol] 30 mmol/L Normal 21-31 [facility] Comment on above: Performed By: #### L [id number] ####[facility] ([facility])[address] [place] [address] Creatinine [Mass/Vol] 1.06 mg/dL Normal 0.60-1.20 [facility] Comment on above: Performed By: #### L [id number] ####[facility] ([facility] [place] [address] GLOMERULAR FILTRATION RATE ML/MIN/1.73 SQ M.PREDICTED 59.4 mL/min/1.73m*2 Low >60.0 [facility] Comment on above: Result Comment: The [facility]???s estimated glomerular filtration rate (eGFR) will no [...] of individuals. Performed By: #### L [id number] ####[facility] ([facility])[address] [place] [address] Glucose [Mass/Vol] 139 mg/dL High 70-100 [facility] Comment on above: Performed By: #### L [id number] ####[facility] ([facility])[address] [place] [address] Potassium [Moles/Vol] 3.9 mmol/L Normal 3.5-5.1 [facility] Comment on above: Performed By: #### L [id number] ####[facility] ([facility])[address] [place] [address] Sodium [Moles/Vol] 136 mmol/L Normal 136-145 [facility] Comment on above: Performed By: #### L [id number] ####[facility] ([facility] [facility] [place] [address] Urea nitrogen [Mass/Vol] 23 mg/dL Normal 7-25 [facility] Comment on above: Performed By: #### L [id number] ####[facility] ([facility] [place] [address] UREA NITROGEN/CREATININE (MASS RATIO) IN SER/PLAS 21.7 Normal [facility] Comment on above: Performed By: #### L [id number] ####[facility] ([facility])[address] [place] [address] CBC WITH AUTO DIFFERENTIALon 07-10-2023 Basophils (Bld) [#/Vol] 0.02 10*3/uL Normal 0.00-0.20 [facility] Comment on above: Performed By: #### L [id number] ####[facility] ([facility])[address] [place] [address] Basophils/100 WBC (Bld) 0.2 % Normal 0.0-1.0 [facility] Comment on above: Performed By: #### L [id number] ####[facility] ([facility])[address] [place] [address] Eosinophils (Bld) [#/Vol] 0.53 10*3/uL High 0.00-0.50 [facility] Comment on above: Performed By: #### L [id number] ####[facility] ([facility])[address] [place] [address] Eosinophils/100 WBC (Bld) 5.0 % Normal 0.0-6.0 [facility] Comment on above: Performed By: #### L [id number] ####[facility] ([facility])[address] [place] [address] Erythrocyte distribution width (RBC) [Ratio] 15.3 % High 11.5-15.0 [facility] Comment on above: Performed By: #### L [id number] ####[facility] ([facility])[address] [place] [address] ERYTHROCYTE MEAN CORPUSCULAR HEMOGLOBIN CONCENTRATION (G/DL) BY AUTOMATED 32.9 g/dL Normal 32.0-35.0 [facility] Comment on above: Performed By: #### L [id number] ####[facility] ([facility])[address] [place] [address] Hematocrit (Bld) [Volume fraction] 42.6 % Normal 36.0-48.0 [facility] Comment on above: Performed By: #### L [id number] ####[facility] ([facility])[address] [place] [address] Hemoglobin (Bld) [Mass/Vol] 14.0 g/dL Normal 12.0-15.0 [facility] Comment on above: Performed By: #### L [id number] ####[facility] ([facility])[address] [place] [address] Immature granulocytes (Bld) [#/Vol] 0.02 10*3/uL Normal 0.00-0.20 [facility] Comment on above: Performed By: #### L [id number] ####[facility] ([facility])[address] [place] [address] Immature granulocytes/100 WBC (Bld) 0.2 % Normal 0.0-1.0 [facility] Comment on above: Performed By: #### L [id number] ####[facility] ([facility] [place] [address] Lymphocytes (Bld) [#/Vol] 3.34 10*3/uL Normal 1.20-4.00 [facility] Comment on above: Performed By: #### L [id number] ####[facility] ([facility])[address] [place] [address] Lymphocytes/100 WBC (Bld) 31.7 % Normal 20.0-45.0 [facility] Comment on above: Performed By: #### L [id number] ####[facility] ([facility])[address] [place] [address] MCH (RBC) [Entitic mass] 28.3 pg Normal 27.0-33.0 [facility] Comment on above: Performed By: #### L [id number] ####[facility] ([facility])[address] [place] [address] MCV (RBC) [Entitic vol] 86.2 fL Normal 82.0-98.0 [facility] Comment on above: Performed By: #### L [id number] ####[facility] ([facility])[address] [place] [address] Monocytes (Bld) [#/Vol] 0.60 10*3/uL Normal 0.10-1.00 [facility] Comment on above: Performed By: #### L [id number] ####[facility] ([facility])[address] [place] [address] Monocytes/100 WBC (Bld) 5.7 % Normal 5.0-12.0 [facility] Comment on above: Performed By: #### L [id number] ####[facility] ([facility])[address] [place] [address] Neutrophils (Bld) [#/Vol] 6.01 10*3/uL Normal 1.60-7.60 [facility] Comment on above: Performed By: #### L [id number] ####[facility] ([facility])[address] [place] [address] Neutrophils/100 WBC (Bld) 57.2 % Normal 40.0-72.0 [facility] Comment on above: Performed By: #### L [id number] ####[facility] ([facility])[address] [place] [address] NRBC (PER 100 WBCS) BY AUTOMATED COUNT 0.0 % Normal 0 [facility] Comment on above: Performed By: #### L [id number] ####[facility] ([facility])[address] [place] [address] PLATELETS (10*3/UL) IN BLOOD AUTOMATED COUNT 329 10*3/uL Normal 150-400 [facility] Comment on above: Performed By: #### L [id number] ####[facility] ([facility])[address] [place] [address] RBC (Bld) [#/Vol] 4.94 10*6/uL Normal 3.80-5.00 [facility] Comment on above: Performed By: #### L [id number] ####[facility] ([facility])[address] [place] [address] WBC (Bld) [#/Vol] 10.52 10*3/uL Normal 4.00-10.60 [facility] Comment on above: Performed By: #### L [id number] ####[facility] ([place])[address] [place] [address] HPon 07-10-2023 HP History Of Present Illness [...] Problems: Junctional bradycardia Pacemaker Loree Chance MD [facility] 30on 07-09-2023 30 Problem: Cardiovascular - [...] shift include pacemaker placement without issues Normal [facility] 30 Daily Case Managemen t Update Multidisciplinary [...] Consultation Consultation and Management 07/06/23 1050 Normal [facility] BASIC METABOLIC PANELon 06-15 Anion gap [Moles/Vol] 9 mmol/L Normal 7-20 [facility] Comment on above: Performed By: #### L [id number] #### [facility] ([facility]) [address] [place] [address] Calcium [Mass/Vol] 9.1 mg/dL Normal 8.6-10.3 [facility] Comment on above: Performed By: #### L [id number] #### [facility] (AKER) [address] [place] [address] Chloride [Moles/Vol] 99 mmol/L Normal 98-107 [facility] Comment on above: Performed By: #### L [id number] #### [facility] ([facility]) [address] [place] [address] CO2 [Moles/Vol] 32 mmol/L High 21-31 [facility] Comment on above: Performed By: #### L [id number] #### [facility] ([facility]) [address] [place] [address] Creatinine [Mass/Vol] 0.98 mg/dL Normal 0.60-1.20 [facility] Comment on above: Performed By: #### L [id number] #### [facility] ([facility]) [address] [place] [address] GLOMERULAR FILTRATION RATE ML/MIN/1.73 SQ M.PREDICTED 65.3 mL/min/1.73m*2 Normal >60.0 [facility] Comment on above: Result Comment: [facility]???s estimated glomerular filtration rate (eGFR) will no [...] individuals. Performed By: #### L [id number] #### [facility] ([facility]) [address] [place] [address] Glucose [Mass/Vol] 131 mg/dL High 70-100 [facility] Comment on above: Performed By: #### L [id number] #### [facility] ([facility]) [address] [place] [address] Potassium [Moles/Vol] 4.3 mmol/L Normal 3.5-5.1 [facility] Comment on above: Performed By: #### L [id number] #### [facility] ([facility]) [address] [place] [address] Sodium [Moles/Vol] 136 mmol/L Normal 136-145 [facility] Comment on above: Performed By: #### L [id number] #### [facility] ([facility]) [address] [place] [address] Urea nitrogen [Mass/Vol] 23 mg/dL Normal 7-25 [facility] Comment on above: Performed By: #### L [id number] #### [facility] ([facility]) [address] [place] [address] UREA NITROGEN/CREATININE (MASS RATIO) IN SER/PLAS 23.5 Normal [facility] Comment on above: Performed By: #### L [id number] #### [facility] ([facility]) [address] [place] [address] CBC WITH AUTO DIFFERENTIALon 07-09-2023 Basophils (Bld) [#/Vol] 0.03 10*3/uL Normal 0.00-0.20 [facility] Comment on above: Performed By: #### L [id number] #### [facility] ([facility]) [address] [place] [address] Basophils/100 WBC (Bld) 0.3 % Normal 0.0-1.0 [facility] Comment on above: Performed By: #### L [id number] #### [facility] ([facility]) [address] [place] [address] Eosinophils (Bld) [#/Vol] 0.54 10*3/uL High 0.00-0.50 [facility] Comment on above: Performed By: #### L [id number] #### [facility] ([facility] [address] [place] [address] Eosinophils/100 WBC (Bld) 4.9 % Normal 0.0-6.0 [facility] Comment on above: Performed By: #### L [id number] #### [facility] ([facility]) [address] [place] [place] [address] Erythrocyte distribution width (RBC) [Ratio] 15.0 % Normal 11.5-15.0 [facility] Comment on above: Performed By: #### L [id number] #### [facility] ([facility]) [address] [place] [place] [address] ERYTHROCYTE MEAN CORPUSCULAR HEMOGLOBIN CONCENTRATION (G/DL) BY AUTOMATED 32.8 g/dL Normal 32.0-35.0 [facility] Comment on above: Performed By: #### L [id number] #### [facility] ([facility]) [address] [place] [place] [address] Hematocrit (Bld) [Volume fraction] 37.5 % Normal 36.0-48.0 [facility] Comment on above: Performed By: #### L [id number] #### [facility] ([facility]) [address] [place] [place] [address] Hemoglobin (Bld) [Mass/Vol] 12.3 g/dL Normal 12.0-15.0 [facility] Comment on above: Performed By: #### L [id number] #### [facility] ([facility]) [address] [place] [place] [address] Immature granulocytes (Bld) [#/Vol] 0.03 10*3/uL Normal 0.00-0.20 [facility] Comment on above: Performed By: #### L [id number] #### [facility] ([facility]) [address] [place] [address] Immature granulocytes/100 WBC (Bld) 0.3 % Normal 0.0-1.0 [facility] Comment on above: Performed By: #### L [id number] #### [facility] ([facility]) [address] [place] [address] Lymphocytes (Bld) [#/Vol] 3.76 10*3/uL Normal 1.20-4.00 [facility] Comment on above: Performed By: #### L [id number] #### [facility] ([facility]) [address] [place] [address] Lymphocytes/100 WBC (Bld) 34.1 % Normal 20.0-45.0 [facility] Comment on above: Performed By: #### L [id number] #### [facility] ([facility]) [address] [place] [address] MCH (RBC) [Entitic mass] 28.5 pg Normal 27.0-33.0 [facility] Comment on above: Performed By: #### L [id number] #### [facility] ([facility]) [address] [place] [address] MCV (RBC) [Entitic vol] 87.0 fL Normal 82.0-98.0 [facility] Comment on above: Performed By: #### L [id number] #### [facility] ([facility] [address] [place] [address] Monocytes (Bld) [#/Vol] 0.64 10*3/uL Normal 0.10-1.00 [facility] Comment on above: Performed By: #### L [id number] #### [facility] ([facility]) [address] [place] [address] Monocytes/100 WBC (Bld) 5.8 % Normal 5.0-12.0 [facility] Comment on above: Performed By: #### L [id number] #### [facility] ([facility]) [address] [place] [address] Neutrophils (Bld) [#/Vol] 6.03 10*3/uL Normal 1.60-7.60 [facility] Comment on above: Performed By: #### L [id number] #### [facility] ([facility]) [address] [place] [address] Neutrophils/100 WBC (Bld) 54.6 % Normal 40.0-72.0 [facility] Comment on above: Performed By: #### L [id number] #### [facility] ([facility]) [address] [place] [address] NRBC (PER 100 WBCS) BY AUTOMATED COUNT 0.0 % Normal 0 [facility] Comment on above: Performed By: #### L [id number] #### [facility] ([facility]) [address] [place] [address] PLATELETS (10*3/UL) IN BLOOD AUTOMATED COUNT 285 10*3/uL Normal 150-400 [facility] Comment on above: Performed By: #### L [id number] #### [facility] ([facility]) [address] [place] [address] RBC (Bld) [#/Vol] 4.31 10*6/uL Normal 3.80-5.00 [facility] Comment on above: Performed By: #### L [id number] #### [facility] ([facility]) [address] [place] [address] WBC (Bld) [#/Vol] 11.03 10*3/uL High 4.00-10.60 [facility] Comment on above: Performed By: #### L [id number] #### [facility] ([facility]) [address] [place] [address] 30on 07-08-2023 30 The patient is Moderately [...] Maintains adequate nutritional intake Outcome: Progressing Normal [facility] 30 Problem: Cardiovascular - Adult Goal: Maintains [...] for the shift include stable bp Normal [facility] BASIC METABOLIC PANELon 06-15 Anion gap [Moles/Vol] 10 mmol/L Normal 7-20 [facility] Comment on above: Performed By: #### L [id number] ####[facility] (AKER)[address] [place] [address] Calcium [Mass/Vol] 9.0 mg/dL Normal 8.6-10.3 [facility] Comment on above: Performed By: #### L [id number] ####[facility] ([facility] [place] [address] Chloride [Moles/Vol] 97 mmol/L Low 98-107 [facility] Comment on above: Performed By: #### L [id number] ####[facility] ([facility])[address] [place] [address] CO2 [Moles/Vol] 33 mmol/L High 21-31 [facility] Comment on above: Performed By: #### L [id number] ####[facility] ([facility])[address] [place] [address] Creatinine [Mass/Vol] 1.30 mg/dL High 0.60-1.20 [facility] Comment on above: Performed By: #### L [id number] ####[facility] ([facility])[address] [place] [address] GLOMERULAR FILTRATION RATE ML/MIN/1.73 SQ M.PREDICTED 46.5 mL/min/1.73m*2 Low >60.0 [facility] Comment on above: Result Comment: The [facility]???s estimated glomerular filtration rate (eGFR) will no [...] of individuals. Performed By: #### L [id number] ####[facility] ([facility])[address] [place] [address] Glucose [Mass/Vol] 214 mg/dL High 70-100 [facility] Comment on above: Performed By: #### L [id number] ####[facility] ([facility])[address] [facility] [place] [address] Potassium [Moles/Vol] 3.9 mmol/L Normal 3.5-5.1 [facility] Comment on above: Performed By: #### L [id number] ####[facility] ([facility])[address] [place] [address] Sodium [Moles/Vol] 136 mmol/L Normal 136-145 [facility] Comment on above: Performed By: #### L [id number] ####[facility] ([facility])[address] [place] [address] Urea nitrogen [Mass/Vol] 26 mg/dL High 7-25 [facility] Comment on above: Performed By: #### L [id number] ####[facility] ([facility])[address] [place] [address] UREA NITROGEN/CREATININE (MASS RATIO) IN SER/PLAS 20.0 Normal [facility] Comment on above: Performed By: #### L [id number] ####[facility] ([facility])[address] [place] [address] CBC WITH AUTO DIFFERENTIALon 07-08-2023 Basophils (Bld) [#/Vol] 0.04 10*3/uL Normal 0.00-0.20 [facility] Comment on above: Performed By: #### L [id number] #### [facility] ([facility]) [address] [place] [address] Basophils/100 WBC (Bld) 0.3 % Normal 0.0-1.0 [facility] Comment on above: Performed By: #### L [id number] #### [facility] ([facility]) [address] [place] [address] Eosinophils (Bld) [#/Vol] 0.51 10*3/uL High 0.00-0.50 [facility] Comment on above: Performed By: #### L [id number] #### [facility] ([facility]) [address] [place] [address] Eosinophils/100 WBC (Bld) 4.1 % Normal 0.0-6.0 [facility] Comment on above: Performed By: #### L [id number] #### [facility] ([facility]) [address] [place] [address] Erythrocyte distribution width (RBC) [Ratio] 15.0 % Normal 11.5-15.0 [facility] Comment on above: Performed By: #### L [id number] #### [facility] ([facility]) [address] [place] [address] ERYTHROCYTE MEAN CORPUSCULAR HEMOGLOBIN CONCENTRATION (G/DL) BY AUTOMATED 31.9 g/dL Low 32.0-35.0 [facility] Comment on above: Performed By: #### L [id number] #### [facility] ([facility]) [address] [place] [address] Hematocrit (Bld) [Volume fraction] 37.9 % Normal 36.0-48.0 [facility] Comment on above: Performed By: #### L [id number] #### [facility] ([facility]) [address] [place] [address] Hemoglobin (Bld) [Mass/Vol] 12.1 g/dL Normal 12.0-15.0 [facility] Comment on above: Performed By: #### L [id number] #### [facility] ([facility]) [address] [place] [address] Immature granulocytes (Bld) [#/Vol] 0.04 10*3/uL Normal 0.00-0.20 [facility] Comment on above: Performed By: #### L [id number] #### [facility] ([facility] [address] [place] [address] Immature granulocytes/100 WBC (Bld) 0.3 % Normal 0.0-1.0 [facility] Comment on above: Performed By: #### L [id number] #### [facility] ([facility]) [address] [place] [address] Lymphocytes (Bld) [#/Vol] 4.00 10*3/uL Normal 1.20-4.00 [facility] Comment on above: Performed By: #### L [id number] #### [facility] ([facility]) [address] [place] [address] Lymphocytes/100 WBC (Bld) 32.1 % Normal 20.0-45.0 [facility] Comment on above: Performed By: #### L [id number] #### [facility] ([facility]) [address] [place] [address] MCH (RBC) [Entitic mass] 28.1 pg Normal 27.0-33.0 [facility] Comment on above: Performed By: #### L [id number] #### [facility] ([facility]) [address] [place] [address] MCV (RBC) [Entitic vol] 87.9 fL Normal 82.0-98.0 [facility] Comment on above: Performed By: #### L [id number] #### [facility] ([facility]) [address] [place] [address] Monocytes (Bld) [#/Vol] 0.85 10*3/uL Normal 0.10-1.00 [facility] Comment on above: Performed By: #### L [id number] #### [facility] ([facility]) [address] [place] [address] Monocytes/100 WBC (Bld) 6.8 % Normal 5.0-12.0 [facility] Comment on above: Performed By: #### L [id number] #### [facility] ([facility]) [address] [place] [address] Neutrophils (Bld) [#/Vol] 7.02 10*3/uL Normal 1.60-7.60 [facility] Comment on above: Performed By: #### L [id number] #### [facility] ([facility]) [address] [place] [address] Neutrophils/100 WBC (Bld) 56.4 % Normal 40.0-72.0 [facility] Comment on above: Performed By: #### L [id number] #### [facility] ([facility]) [address] [place] [address] NRBC (PER 100 WBCS) BY AUTOMATED COUNT 0.0 % Normal 0 [facility] Comment on above: Performed By: #### L [id number] #### [facility] ([facility]) [address] [place] [address] PLATELETS (10*3/UL) IN BLOOD AUTOMATED COUNT 301 10*3/uL Normal 150-400 [facility] Comment on above: Performed By: #### L [id number] #### [facility] ([facility] [address] [place] [address] RBC (Bld) [#/Vol] 4.31 10*6/uL Normal 3.80-5.00 [facility] Comment on above: Performed By: #### L [id number] #### [facility] ([facility]) [address] [place] [address] WBC (Bld) [#/Vol] 12.46 10*3/uL High 4.00-10.60 [facility] Comment on above: Performed By: #### L [id number] #### [facility] ([facility]) [address] [place] [address] 30on 07-07-2023 30 The patient is Moderately Stable - Low risk of patient condition declining or worsening The patient's goals for the shift include comfort The clinical goals for the shift include vss Normal [facility] 30 Problem: Cardiovascular - Adult Goal: Maintains [...] comfort lev (more content not included)... Normal [facility] BASIC METABOLIC PANELon 02- Anion gap [Moles/Vol] 12 mmol/L Normal 7-20 [facility] Comment on above: Performed By: #### L [id number] #### [facility] ([facility]) [address] [place] [address] Calcium [Mass/Vol] 9.2 mg/dL Normal 8.6-10.3 [facility] Comment on above: Performed By: #### L [id number] #### [facility] ([facility]) [address] [place] [address] Chloride [Moles/Vol] 97 mmol/L Low 98-107 [facility] Comment on above: Performed By: #### L [id number] #### [facility] ([facility]) [address] [place] [address] CO2 [Moles/Vol] 31 mmol/L Normal 21-31 [facility] Comment on above: Performed By: #### L [id number] #### [facility] ([facility]) [address] [place] [address] Creatinine [Mass/Vol] 1.06 mg/dL Normal 0.60-1.20 [facility] Comment on above: Performed By: #### L [id number] #### [facility] ([facility]) [address] [place] [address] GLOMERULAR FILTRATION RATE ML/MIN/1.73 SQ M.PREDICTED 59.4 mL/min/1.73m*2 Low >60.0 [facility] Comment on above: Result Comment: The [facility]???s estimated glomerular filtration rate (eGFR) will no [...] individuals. Performed By: #### L [id number] #### [facility] ([facility]) [address] [place] [address] Glucose [Mass/Vol] 119 mg/dL High 70-100 [facility] Comment on above: Performed By: #### L [id number] #### [facility] ([facility]) [address] [place] [address] Potassium [Moles/Vol] 4.6 mmol/L Normal 3.5-5.1 [facility] Comment on above: Performed By: #### L [id number] #### [facility] ([facility]) [address] [place] [address] Sodium [Moles/Vol] 135 mmol/L Low 136-145 [facility] Comment on above: Performed By: #### L [id number] #### [facility] ([facility]) [address] [place] [address] Urea nitrogen [Mass/Vol] 21 mg/dL Normal 7-25 [facility] Comment on above: Performed By: #### L [id number] #### [facility] ([facility]) [address] [place] [address] UREA NITROGEN/CREATININE (MASS RATIO) IN SER/PLAS 19.8 Normal [facility] Comment on above: Performed By: #### L [id number] #### [facility] ([facility]) [address] [place] [address] CBC WITH AUTO DIFFERENTIALon 07-07-2023 Basophils (Bld) [#/Vol] 0.05 10*3/uL Normal 0.00-0.20 [facility] Comment on above: Performed By: #### L [id number] #### [facility] ([facility]) [address] [place] [address] Basophils/100 WBC (Bld) 0.3 % Normal 0.0-1.0 [facility] Comment on above: Performed By: #### L [id number] #### [facility] ([facility] [address] [place] [address] Eosinophils (Bld) [#/Vol] 0.38 10*3/uL Normal 0.00-0.50 [facility] Comment on above: Performed By: #### L [id number] #### [facility] ([facility]) [address] [place] [address] Eosinophils/100 WBC (Bld) 2.5 % Normal 0.0-6.0 [facility] Comment on above: Performed By: #### L [id number] #### [facility] ([facility]) [address] [place] [address] Erythrocyte distribution width (RBC) [Ratio] 15.5 % High 11.5-15.0 [facility] Comment on above: Performed By: #### L [id number] #### [facility] ([facility]) [address] [place] [address] ERYTHROCYTE MEAN CORPUSCULAR HEMOGLOBIN CONCENTRATION (G/DL) BY AUTOMATED 32.0 g/dL Normal 32.0-35.0 [facility] Comment on above: Performed By: #### L [id number] #### [facility] ([facility]) [address] [place] [address] Hematocrit (Bld) [Volume fraction] 38.8 % Normal 36.0-48.0 [facility] Comment on above: Performed By: #### L [id number] #### [facility] ([facility]) [address] [place] [address] Hemoglobin (Bld) [Mass/Vol] 12.4 g/dL Normal 12.0-15.0 [facility] Comment on above: Performed By: #### L [id number] #### [facility] ([facility] [address] [place] [address] Immature granulocytes (Bld) [#/Vol] 0.05 10*3/uL Normal 0.00-0.20 [facility] Comment on above: Performed By: #### L [id number] #### [facility] ([facility] [address] [place] [address] Immature granulocytes/100 WBC (Bld) 0.3 % Normal 0.0-1.0 [facility] Comment on above: Performed By: #### L [id number] #### [facility] ([facility] [address] [place] [address] Lymphocytes (Bld) [#/Vol] 3.99 10*3/uL Normal 1.20-4.00 [facility] Comment on above: Performed By: #### L [id number] #### [facility] ([facility]) [address] [place] [address] Lymphocytes/100 WBC (Bld) 26.5 % Normal 20.0-45.0 [facility] Comment on above: Performed By: #### L [id number] #### [facility] ([facility]) [address] [place] [address] MCH (RBC) [Entitic mass] 27.9 pg Normal 27.0-33.0 [facility] Comment on above: Performed By: #### L [id number] #### [facility] ([facility]) [address] [place] [address] MCV (RBC) [Entitic vol] 87.4 fL Normal 82.0-98.0 [facility] Comment on above: Performed By: #### L [id number] #### [facility] ([facility]) [address] [place] [address] Monocytes (Bld) [#/Vol] 1.25 10*3/uL High 0.10-1.00 [facility] Comment on above: Performed By: #### L [id number] #### [facility] ([facility]) [address] [place] [address] Monocytes/100 WBC (Bld) 8.3 % Normal 5.0-12.0 [facility] Comment on above: Performed By: #### L [id number] #### [facility] ([facility] [address] [place] [address] Neutrophils (Bld) [#/Vol] 9.31 10*3/uL High 1.60-7.60 [facility] Comment on above: Performed By: #### L [id number] #### [facility] ([facility]) [address] [place] [place] [address] Neutrophils/100 WBC (Bld) 62.1 % Normal 40.0-72.0 [facility] Comment on above: Performed By: #### L [id number] #### [facility] ([facility]) [address] [place] [address] NRBC (PER 100 WBCS) BY AUTOMATED COUNT 0.0 % Normal 0 [facility] Comment on above: Performed By: #### L [id number] #### [facility] ([facility]) [address] [place] [address] PLATELETS (10*3/UL) IN BLOOD AUTOMATED COUNT 300 10*3/uL Normal 150-400 [facility] Comment on above: Performed By: #### L [id number] #### [facility] ([facility]) [address] [place] [address] RBC (Bld) [#/Vol] 4.44 10*6/uL Normal 3.80-5.00 [facility] Comment on above: Performed By: #### L [id number] #### [facility] ([facility]) [address] [place] [address] WBC (Bld) [#/Vol] 15.03 10*3/uL High 4.00-10.60 [facility] Comment on above: Performed By: #### L [id number] #### [facility] ([facility]) [address] [place] [address] MAGNESIUMon 07-07-2023 Magnesium [Mass/Vol] 2.3 mg/dL Normal 1.9-2.7 [facility] Comment on above: Performed By: #### L [id number] #### [facility] ([facility]) [address] [place] [address] 30on 07-06-2023 30 Daily Case Managemen t [...] of Consultation Consultation and Management 07/06/23 1050 [facility] 30 The patient is Moderately Stable [...] monitored and maintained or improved Outcome: Progressing [facility] 30 The patient is Moderately Stable - Low risk of patient condition declining or worsening The patient's goals for the shift include comfort The clinical goals for the shift include VSS [facility] 30 The patient is Moderately Stable - Low risk of patient condition declining or worsening The patient's goals for the shift include comfort The clinical goals for the shift include VSS [facility] APTTon 07-06-2023 ACTIVATED PARTIAL THROMBOPLASTIN TIME IN PPP BY COAGULATION ASSAY 25.3 Seconds Normal 25.0-35.0 [facility] Comment on above: Result Comment: Clin ical significance of the APTT is questionable in the presence of heparin. Performed By: #### L [id number] #### [facility] ([facility]) [address] [place] [address] B-TYPE NATRIURETIC PEPTIDEon 07-06-2023 Natriuretic peptide B (Bld) [Mass/Vol] 721 pg/mL High 0-100 [facility] Comment on above: Performed By: #### L [id number] #### [facility] ([facility]) [address] [place] [address] BLOOD CULTUREon 07-06-2023 Bacteria identified Cx Nom (Bld) No growth at 5 days Normal [facility] Comment on above: Performed By: #### L [id number] ####[facility] ([facility])[address] [place] [address] Order Comment: From a different site than #1. Performed By: #### L [id number] #### [facility] ([facility]) [address] [place] [address] CBC WITH AUTO DIFFERENTIALon 07-06-2023 Basophils (Bld) [#/Vol] 0.03 10*3/uL Normal 0.00-0.20 [facility] Comment on above: Performed By: #### L [id number] ####[facility] ([facility])[address] [place] [address] Basophils/100 WBC (Bld) 0.2 % Normal 0.0-1.0 [facility] Comment on above: Performed By: #### L [id number] ####[facility] ([facility])[address] [place] [address] Eosinophils (Bld) [#/Vol] 0.11 10*3/uL Normal 0.00-0.50 [facility] Comment on above: Performed By: #### L [id number] ####[facility] ([facility]ER)[address] [place] [address] Eosinophils/100 WBC (Bld) 0.8 % Normal 0.0-6.0 [facility] Comment on above: Performed By: #### L [id number] ####[facility] ([facility])[address] [place] [address] Erythrocyte distribution width (RBC) [Ratio] 15.1 % High 11.5-15.0 [facility] Comment on above: Performed By: #### L [id number] ####[facility] ([facility])[address] [place] [address] ERYTHROCYTE MEAN CORPUSCULAR HEMOGLOBIN CONCENTRATION (G/DL) BY AUTOMATED 32.3 g/dL Normal 32.0-35.0 [facility] Comment on above: Performed By: #### L [id number] ####[facility] ([facility])[address] [place] [address] Hematocrit (Bld) [Volume fraction] 39.0 % Normal 36.0-48.0 [facility] Comment on above: Performed By: #### L [id number] ####[facility] ([facility])[address] [place] [address] Hemoglobin (Bld) [Mass/Vol] 12.6 g/dL Normal 12.0-15.0 [facility] Comment on above: Performed By: #### L [id number] ####[facility] ([facility])[address] [place] [address] Immature granulocytes (Bld) [#/Vol] 0.04 10*3/uL Normal 0.00-0.20 [facility] Comment on above: Performed By: #### L [id number] ####[facility] ([facility]AKER)[address] [place] [address] Immature granulocytes/100 WBC (Bld) 0.3 % Normal 0.0-1.0 [facility] Comment on above: Performed By: #### L [id number] ####[facility] ([facility])[address] [place] [address] Lymphocytes (Bld) [#/Vol] 2.75 10*3/uL Normal 1.20-4.00 [facility] Comment on above: Performed By: #### L [id number] ####[facility] ([facility])[address] [place] [address] Lymphocytes/100 WBC (Bld) 19.1 % Low 20.0-45.0 [facility] Comment on above: Performed By: #### L [id number] ####[facility] (BEAKER)[address] [place] [address] MCH (RBC) [Entitic mass] 27.9 pg Normal 27.0-33.0 [facility] Comment on above: Performed By: #### L [id number] ####[facility] (BEAKER)[address] [place] [address] MCV (RBC) [Entitic vol] 86.5 fL Normal 82.0-98.0 [facility] Comment on above: Performed By: #### L [id number] ####[facility] (BEAKER)[address] [place] [address] Monocytes (Bld) [#/Vol] 1.31 10*3/uL High 0.10-1.00 [facility] Comment on above: Performed By: #### L [id number] ####[facility] ([facility]AKER)[address] [place] [address] Monocytes/100 WBC (Bld) 9.1 % Normal 5.0-12.0 [facility] Comment on above: Performed By: #### L [id number] ####[facility] (BEAKER)[address] [place] [address] Neutrophils (Bld) [#/Vol] 10.18 10*3/uL High 1.60-7.60 [facility] Comment on above: Performed By: #### L [id number] ####[facility] (BEAKER)[address] [place] [address] Neutrophils/100 WBC (Bld) 70.5 % Normal 40.0-72.0 [facility] Comment on above: Performed By: #### L [id number] ####[facility] ([facility] [place] [address] NRBC (PER 100 WBCS) BY AUTOMATED COUNT 0.0 % Normal 0 [facility] Comment on above: Performed By: #### L [id number] ####[facility] ([facility] [place] [address] PLATELETS (10*3/UL) IN BLOOD AUTOMATED COUNT 321 10*3/uL Normal 150-400 [facility] Comment on above: Performed By: #### L [id number] ####[facility] [place] [address] RBC (Bld) [#/Vol] 4.51 10*6/uL Normal 3.80-5.00 [facility] Comment on above: Performed By: #### L [id number] ####[facility] ([facility])[address] [place] [address] WBC (Bld) [#/Vol] 14.42 10*3/uL High 4.00-10.60 [facility] Comment on above: Performed By: #### L [id number] ####[facility] ([facility])[address] [place] [address] CKon 07-06-2023 CREATINE KINASE (U/L) IN SER/PLAS 36.0 U/L Normal 30.0-223.0 [facility] Comment on above: Performed By: #### L [id number] #### [facility] ([facility] [address] [place] [address] COMPREHENSIVE METABOLIC PANE Pollo 07-06-2023 Albumin [Mass/Vol] 4.6 g/dL Normal 3.5-5.7 [facility] Comment on above: Performed By: #### L [id number] #### [facility] ([facility]) [address] [place] [address] ALP [Catalytic activity/Vol] 47 U/L Normal 34-104 [facility] Comment on above: Performed By: #### L [id number] #### [facility] ([facility]) [address] [place] [address] ALT [Catalytic activity/Vol] 13 U/L Normal 7-52 [facility] Comment on above: Performed By: #### L [id number] #### [facility] ([facility]) [address] [place] [address] Anion gap [Moles/Vol] 14 mmol/L Normal 7-20 [facility] Comment on above: Performed By: #### L [id number] #### [facility] ([facility] [address] [place] [address] AST [Catalytic activity/Vol] 17 U/L Normal 13-39 [facility] Comment on above: Performed By: #### L [id number] #### [facility] ([facility] [address] [place] [address] Bilirubin [Mass/Vol] 0.5 mg/dL Normal 0.3-1.0 [facility] Comment on above: Performed By: #### L [id number] #### [facility] ([facility] [address] [place] [address] Calcium [Mass/Vol] 8.9 mg/dL Normal 8.6-10.3 [facility] Comment on above: Performed By: #### L [id number] #### [facility] ([facility]) [address] [place] [address] Chloride [Moles/Vol] 98 mmol/L Normal 98-107 [facility] Comment on above: Performed By: #### L [id number] #### [facility] ([facility]) [address] [place] [address] CO2 [Moles/Vol] 28 mmol/L Normal 21-31 [facility] Comment on above: Performed By: #### L [id number] #### [facility] ([facility]) [address] [place] [address] Creatinine [Mass/Vol] 1.23 mg/dL High 0.60-1.20 [facility] Comment on above: Performed By: #### L [id number] #### [facility] ([facility]) [address] [place] [address] GLOMERULAR FILTRATION RATE ML/MIN/1.73 SQ M.PREDICTED 49.7 mL/min/1.73m*2 Low >60.0 [facility] Comment on above: Result Comment: The [facility]???s estimated glomerular filtration rate (eGFR) will no [...] individuals. Performed By: #### L [id number] #### [facility] ([facility]) [address] [place] [address] Glucose [Mass/Vol] 119 mg/dL High 70-100 [facility] Comment on above: Performed By: #### L [id number] #### [facility] ([facility]) [address] [place] [address] Potassium [Moles/Vol] 4.6 mmol/L Normal 3.5-5.1 [facility] Comment on above: Performed By: #### L [id number] #### [facility] ([facility]) [address] [place] [address] Protein [Mass/Vol] 6.8 g/dL Normal 6.0-8.3 [facility] Comment on above: Performed By: #### L [id number] #### [facility] ([facility]) [address] [place] [address] Sodium [Moles/Vol] 135 mmol/L Low 136-145 [facility] Comment on above: Performed By: #### L [id number] #### [facility] ([facility]) [address] [place] [address] Urea nitrogen [Mass/Vol] 23 mg/dL Normal 7-25 [facility] Comment on above: Performed By: #### L [id number] #### [facility] ([facility]) [address] [place] [address] UREA NITROGEN/CREATININE (MASS RATIO) IN SER/PLAS 18.7 Normal [facility] Comment on above: Performed By: #### L [id number] #### [facility] ([facility]) [address] [place] [address] CONSULTon 07-06-2023 CONSULT - Attestation signed by [...] bradycardia. Patient has been transferred to [facility] for consideration of pacemaker placement. As per [...] -- -- 7 (more content not included)... [facility] ED Clinical Summaryon 2023 ED Clinical Summary [place] [id number] ED Clinical Summary Person Information Name: VIVIAN VANN/[place] Age: 63 Years : 1960 Sex: Female Language: Togolese PCP: Екатерина Robert MD Marital Status: Phone: [...] 07/05/2023 22:16:25 07/05/2023 22:16:25 07/05/2023 22:16:25 ADDRESS: [facility] [id number] PHYS DOC NOTES: MEDICAL INFORMATION: Prescriptions Given: [...] 3:Tobacco abuse; 4:CHF (congestive heart failure) Normal [facility] ED Patient Education Noteon 07-06-2023 ED Patient Education Note Normal [facility] ED Patient Summaryon 024 ED Patient Summary [place] [id number] Patient Discharge Instructions Person Information Name: VIVIAN VANN Age: 63 Years Arrival Date: 07/05/2023 15:01:40 Discharge Diagnosis: 1:Atrial fibrillation with slow ventricular response; 2:Elevated troponin; 3:Tobacco abuse; 4:CHF (congestive heart failure) Primary Care Physician: Екатерина Robert MD Provider Information Primary Provider: Arsenio Martin DO Advanced E Business Specialist:None The exam and treatment you received in the Emergency Department were for an urgent problem and are not intended as complete care. It is important that you follow up with a doctor, nurse practitioner, or physician?s blood and plasma laboratory assistant for ongoing care. If your symptoms [...] opioids can be used to help relieve tsfwaegy-li-ethcld pain and are often prescribed following a [...] be struggling with addiction, tell your health critical care registered nurse and ask for guidance or call [facility]?S National Helpline at 9-862-821-ILIZ. c Source: [place] Department of Health and Human Services/Center for Disease Control & Preve (more content not included)... Normal [facility] ETHANOLon 07-06-2023 ETHANOL (MG/DL) IN SER/PLAS <10 Normal [facility] Comment on above: Performed By: #### L [id number] #### [facility] ([facility]) [address] [place] [address] ETHANOL CALCULATED (%) Normal Un [facility] Comment on above: Performed By: #### L [id number] #### [facility] ([facility] [address] [place] [address] HEMOGLOBIN A1Con 07-06-2023 Glucose [Mass/Vol] 148 mg/dL Normal [facility] Comment on above: Performed By: #### L [id number] #### [facility] ([facility] [address] [place] [address] HbA1c (Bld) [Mass fraction] 6.8 % High 4.0-6.0 [facility] Comment on above: Performed By: #### L [id number] #### [facility] ([facility]) [address] [place] [address] LACTIC ACID WITH 4 HOUR REFL EXon 07-06-2023 LACTATE (MMOL/L) IN SER/PLAS 1.8 mmol/L Normal 0.5-2.2 [facility] Comment on above: Performed By: #### L [id number] #### [facility] ([facility]) [address] [place] [address] LIPID PANELon 07-06-2023 CHOL/HDL 3.0 mg/dL Normal [facility] Comment on above: Performed By: #### L [id number] #### [facility] ([facility]) [address] [place] [address] Cholesterol [Mass/Vol] 143 mg/dL Normal 120-200 Un [facility] Comment on above: Performed By: #### L [id number] #### [facility] ([facility]) [address] [facility] [place] [address] Magnesium [Mass/Vol] 159 mg/dL High 40-149 [facility] Comment on above: Result Comment: TRIG LYCERIDE REFERENCE RANGE: 20 YEARS AND OLDER CARDIOVASCULAR RISK LESS THAN 150 mg/dL LOW RISK 150 TO 199 mg/dL BORDERLINE RISK 200 mg/dL AND GREATER HIGH RISK Performed By: #### L [id number] #### [facility] ([facility]) [address] [place] [address] Magnesium [Mass/Vol] 63 mg/dL Normal 0-160 [facility] Comment on above: Performed By: #### L [id number] #### [facility] ([facility]) [address] [place] [address] Magnesium [Mass/Vol] 48 mg/dL Normal 23-92 [facility] Comment on above: Performed By: #### L [id number] #### [facility] ([facility]) [address] [place] [address] NON HDL CHOL. (LDL+VLDL) 95 Normal [facility] Comment on above: Performed By: #### L [id number] #### [facility] ([facility]) [address] [place] [address] TOTAL VLDL-C 32 mg/dL Normal 0-40 [facility] Comment on above: Performed By: #### L [id number] #### [facility] ([facility]) [address] [place] [address] MAGNESIUMon 07-06-2023 Magnesium [Mass/Vol] 2.2 mg/dL Normal 1.9-2.7 [facility] Comment on above: Performed By: #### L [id number] #### [facility] ([facility]) [address] [place] [address] PHOSPHORUSon 07-06-2023 Magnesium [Mass/Vol] 5.2 mg/dL High 2.5-5.0 [facility] Comment on above: Performed By: #### L [id number] #### [facility] ([facility]) [address] [place] [address] PROTIME-INRon 07-06-2023 INR IN PPP BY COAGULATION ASSAY 1.00 Normal 0.90-1.10 [facility] Comment on above: Result Comment: [facility] P RECOMMENDED INR FOR WARFARIN THERAPY CONDITION [...] 1995;108:231S-246S. Performed By: #### L [id number] #### [facility] ([facility]) [address] [place] [address] PROTHROMBIN TIME (PT) IN PPP BY COAGULATION ASSAY 13.2 Seconds Normal 12.3-14.8 [facility] Comment on above: Performed By: #### L [id number] #### [facility] ([facility]) [address] [place] [address] TOXICOLOGY PANEL URINEon AMPHETAMINE+METHAMPHET AMINE SCREEN (PRESENCE) IN URINE Negative Normal Negative [facility] Comment on above: Performed By: #### L [id number] #### [facility] ([facility]) [address] [place] [address] BARBITURATES PRESENCE IN URINE BY SCREEN METHOD Negative Normal Negative [facility] Comment on above: Performed By: #### L [id number] #### [facility] ([facility]) [address] [place] [address] Benzodiazepines Ql (U) Positive Abnormal Negative Un [facility] Comment on above: Performed By: #### L [id number] #### [facility] ([facility]) [address] [place] [address] CANNABINOID (PRESENCE) IN URINE BY SCREEN METHOD Positive Abnormal Negative [facility] Comment on above: Performed By: #### L [id number] #### [facility] ([facility]) [address] [place] [address] Cocaine Ql (U) Negative Normal Negative [facility] Comment on above: Performed By: #### L [id number] #### [facility] ([facility] [address] [place] [address] METHADONE (PRESENCE) IN URINE BY SCREEN METHOD Negative Normal Negative [facility] Comment on above: Performed By: #### L [id number] #### [facility] ([facility]) [address] [place] [address] OPIATES (PRESENCE) IN URINE BY SCREEN METHOD Negative Normal Negative [facility] Comment on above: Performed By: #### L [id number] #### [facility] ([facility]) [address] [place] [address] PHENCYCLIDINE PRESENCE IN URINE BY SCREEN METHOD Negative Normal Negative [facility] Comment on above: Performed By: #### L [id number] #### [facility] ([facility]) [address] [place] [address] Propoxyphene Screen Ql (U) Negative Normal Negative [facility] Comment on above: Performed By: #### L [id number] #### [facility] ([facility]) [address] [place] [address] TRICYCLIC ANTIDEPRESSANTS (PRESENCE) IN URINE Positive Abnormal Negative [facility] Comment on above: Performed By: #### L [id number] #### [facility] ([facility]) [address] [place] [address] TROPONIN Ion 07-06-2023 Troponin I.cardiac [Mass/Vol] 0.12 ng/mL Critically high 0.00-0.04 [facility] Comment on above: Result Comment: M-MT EVIOUS CRITICAL RESULT Previous result verified on 07/06/2023 1236 on specimen/case [id number] called with component Troponin I for procedure Troponin I with value 0.11 ng/mL. Performed By: #### L [id number] #### [facility] ([facility]) [address] [place] [address] Troponin I.cardiac [Mass/Vol] 0.11 ng/mL Critically high 0.00-0.04 [facility] Comment on above: Result Comment: M-MT EVIOUS CRITICAL RESULT Previous result verified on 07/06/2023 0444 on specimen/case [id number] called with component Troponin I for procedure Troponin I with value 0.12 ng/mL. Performed By: #### L [id number] #### [facility] ([facility]) [address] [place] [address] Troponin I.cardiac [Mass/Vol] 0.12 ng/mL Critically high 0.00-0.04 [facility] Comment on above: Result Comment: M-CR ITICAL RESULT(S) REVIEWED, CALLED TO AND READ BACK BY PRIYANKA LEOS RN AT 0442 M-TROPONIN INITIAL CRITICAL HIGH; RESPUN AND RETESTED Performed By: #### L [id number] #### [facility] ([facility]) [address] [place] [address] TSH3 REFLEX TO FT4on 024 THYROTROPIN (MIU/L) IN SER/PLAS BY DETECTION LIMIT <= 0.05 MIU/L 4.25 mIU/L Normal 0.34-5.60 [facility] Comment on above: Performed By: #### L [id number] #### [facility] ([facility]) [address] [place] [address] Transfer Documentson 024 Transfer Documents [id number]# 1.00TIFF Normal [facility] URINALYSIS WITH REFLEX CULTU REon 07-06-2023 BILIRUBIN, TOTAL PRESENCE IN URINE Negative Normal Negative [facility] Comment on above: Order Comment: Micro scopics not performed on urines with negative chemical reactions unless requested on original order. Performed By: #### L [id number] #### [facility] ([facility]) [address] [place] [address] Clarity (U) Clear Normal Clear [facility] Comment on above: Order Comment: Micro scopics not performed on urines with negative chemical reactions unless requested on original order. Performed By: #### L [id number] #### [facility] ([facility]) [address] [place] [address] Color (U) Yellow Normal Yellow [facility] Comment on above: Order Comment: Micro scopics not performed on urines with negative chemical reactions unless requested on original order. Performed By: #### L [id number] #### [facility] ([facility]) [address] [place] [address] Glucose (U) [Mass/Vol] mg/dL Abnormal Negative [facility] Comment on above: Order Comment: Micro scopics not performed on urines with negative chemical reactions unless requested on original order. Performed By: #### L [id number] #### [facility] ([facility]) [address] [place] [address] HEMOGLOBIN PRESENCE IN URINE Negative Normal Negative [facility] Comment on above: Order Comment: Micro scopics not performed on urines with negative chemical reactions unless requested on original order. Performed By: #### L [id number] #### [facility] ([facility]) [address] [place] [address] Ketones Ql (U) Negative Normal Negative [facility] Comment on above: Order Comment: Micro scopics not performed on urines with negative chemical reactions unless requested on original order. Performed By: #### L [id number] #### [facility] ([facility]) [address] [place] [address] LEUKOCYTE ESTERASE PRESENCE IN URINE BY TEST STRIP Negative Normal Negative [facility] Comment on above: Order Comment: Micro scopics not performed on urines with negative chemical reactions unless requested on original order. Performed By: #### L [id number] #### [facility] ([facility]) [address] [place] [address] NITRITE PRESENCE IN URINE Negative Normal Negative [facility] Comment on above: Order Comment: Micro scopics not performed on urines with negative chemical reactions unless requested on original order. Performed By: #### L [id number] #### [facility] ([facility]) [address] [place] [address] pH (U) 6.0 [pH] Normal 5.0-8.0 [facility] Comment on above: Order Comment: Micro scopics not performed on urines with negative chemical reactions unless requested on original order. Performed By: #### L [id number] #### [facility] ([facility]) [address] [place] [address] Protein (U) [Mass/Vol] Negative Normal Negative [facility] Comment on above: Order Comment: Micro scopics not performed on urines with negative chemical reactions unless requested on original order. Performed By: #### L [id number] #### [facility] ([facility]) [address] [place] [address] Specific gravity (U) [Rel density] 1.013 Low 1.015-1.020 [facility] Comment on above: Order Comment: Micro scopics not performed on urines with negative chemical reactions unless requested on original order. Performed By: #### L [id number] #### [facility] ([facility]) [address] [place] [address] BILIRUBIN, TOTAL PRESENCE IN URINE Negative Normal Negative [facility] Comment on above: Order Comment: Micro scopics not performed on urines with negative chemical reactions unless requested on original order. Performed By: #### L [id number] #### [facility] ([facility]) [address] [place] [address] Clarity (U) Clear Normal Clear [facility] Comment on above: Order Comment: Micro scopics not performed on urines with negative chemical reactions unless requested on original order. Performed By: #### L [id number] #### [facility] ([facility]) [address] [place] [address] Color (U) Yellow Normal Yellow [facility] Comment on above: Order Comment: Micro scopics not performed on urines with negative chemical reactions unless requested on original order. Performed By: #### L [id number] #### [facility] ([facility]) [address] [place] [address] Glucose (U) [Mass/Vol] mg/dL Abnormal Negative [facility] Comment on above: Order Comment: Micro scopics not performed on urines with negative chemical reactions unless requested on original order. Performed By: #### L [id number] #### [facility] ([facility]) [address] [place] [address] HEMOGLOBIN PRESENCE IN URINE Negative Normal Negative [facility] Comment on above: Order Comment: Micro scopics not performed on urines with negative chemical reactions unless requested on original order. Performed By: #### L [id number] #### [facility] ([facility]) [address] [place] [address] Ketones Ql (U) Negative Normal Negative [facility] Comment on above: Order Comment: Micro scopics not performed on urines with negative chemical reactions unless requested on original order. Performed By: #### L [id number] #### [facility] ([facility]) [address] [place] [address] LEUKOCYTE ESTERASE PRESENCE IN URINE BY TEST STRIP Negative Normal Negative [facility] Comment on above: Order Comment: Micro scopics not performed on urines with negative chemical reactions unless requested on original order. Performed By: #### L [id number] #### [facility] ([facility]) [address] [place] [address] NITRITE PRESENCE IN URINE Negative Normal Negative [facility] Comment on above: Order Comment: Micro scopics not performed on urines with negative chemical reactions unless requested on original order. Performed By: #### L [id number] #### [facility] ([facility]) [address] [place] [address] pH (U) 6.0 [pH] Normal 5.0-8.0 [facility] Comment on above: Order Comment: Micro scopics not performed on urines with negative chemical reactions unless requested on original order. Performed By: #### L [id number] #### [facility] ([facility]) [address] [place] [address] Protein (U) [Mass/Vol] Negative Normal Negative [facility] Comment on above: Order Comment: Micro scopics not performed on urines with negative chemical reactions unless requested on original order. Performed By: #### L [id number] #### [facility] ([facility]) [address] [place] [address] Specific gravity (U) [Rel density] 1.017 Normal 1.015-1.020 [facility] Comment on above: Order Comment: Micro scopics not performed on urines with negative chemical reactions unless requested on original order. Performed By: #### L [id number] #### [facility] [address] [place] [address] BMPon 07-05-2023 Anion gap [Moles/Vol] 15 mmol/L Normal 6-16 [facility] Comment on above: Performed By: #### 1 [id number], 1138179, 74147854, 91810159, 4830904, 99180444, 7928040, 8601850, 8201147, 8935506 ####[facility] [address] [place] [address] BUN/Creat Ratio 15 No Units Normal 10-20 [facility] Comment on above: Performed By: #### 1 [id number], 2802653, 24376390, 76806664, 4478283, 13444037, 3971506, 5130446, 5231562, 2271014 ####[facility] [address] [place] [address] Calcium [Mass/Vol] 10.1 mg/dL Normal 8.9-11.1 [facility] Comment on above: Performed By: #### 1 [id number], 1769182, 97357777, 94070990, 8653896, 66875514, 2288037, 9493113, 2426649, 7763166 ####[facility] [address] [place] [address] Chloride [Moles/Vol] 96 mmol/L Low 101-111 [facility] Comment on above: Performed By: #### 1 1537196, 2934605, 54649132, 14501988, 8636891, 01986137, 5523086, 2810123, 0094366, 9889931 ####[facility] [address] [place] [address] CO2 [Moles/Vol] 32 mmol/L High 21-31 [facility] Comment on above: Performed By: #### 1 3415901, 2573614, 53363802, 55092130, 5381588, 62903507, 5096353, 9068665, 4750811, 3635349 ####[facility] [address] [place] [address] Creatinine [Mass/Vol] 1.5 mg/dL High 0.5-1.3 [facility] Comment on above: Performed By: #### 1 3782134, 3678651, 81849253, 32933994, 1949928, 99110821, 0411701, 8310186, 5549382, 7366890 ####[facility] [address] [place] [address] Glucose [Mass/Vol] 147 mg/dL Normal 55-199 [facility] Comment on above: Performed By: #### 1 6677810, 1658114, 20460818, 42325997, 4986900, 34481001, 7213459, 1837204, 1277961, 6495139 ####[facility] [address] [place] [address] Potassium [Moles/Vol] 5.1 mmol/L Normal 3.5-5.3 [facility] Comment on above: Performed By: #### 1 0727951, 8257685, 25264679, 30853450, 6044516, 77639961, 3981394, 5741723, 7734156, 2972639 ####[facility] [facility] [address] [place] [address] Sodium [Moles/Vol] 138 mmol/L Normal 135-145 [facility] Comment on above: Performed By: #### 1 3044076, 3320323, 24863392, 06402057, 7164121, 45307981, 8865625, 1596160, 6585095, 8284298 ####[address] [place] [address] Urea nitrogen [Mass/Vol] 22 mg/dL High 5-21 [facility] Comment on above: Performed By: #### 1 0898529, 6525927, 71783425, 51269611, 5099266, 84369153, 6457399, 2512716, 7722448, 3257423 ####[address] [address] BNPon 07-05-2023 Natriuretic peptide B (Bld) [Mass/Vol] 508 pg/mL High 5-80 [facility] Comment on above: Performed By: #### 1 2347191, 5741797, 94435676, 58463417, 5770280, 85467818, 4566937, 5412639, 0392807, 1031275 ####[address] [address] CBC w/ Auto Diffon 4 Basophil Absolute 0.1 E9/L Normal 0.0-0.2 [facility] Comment on above: Performed By: #### 1 5803312, 3154004, 49868195, 09150296, 6251053, 98534888, 9613715, 6796787, 6786748, 9283231 ####[facility] [address] [place] [address] Basophils/100 WBC (Bld) 0.7 % Normal 0.0-2.0 [facility] Comment on above: Performed By: #### 1 4317470, 0753540, 30263270, 18709642, 0770948, 81697863, 6852246, 2553614, 3713080, 1883087 ####[facility] [address] [place] [address] Eos Absolute 0.4 E9/L Normal 0.0-0.5 [facility] Comment on above: Performed By: #### 1 0054034, 1057183, 81563784, 10914088, 6041378, 17093592, 0406554, 2982029, 1025177, 7146126 ####[address] [place] [address] Eosinophils/100 WBC (Bld) 3.7 % Normal 0.0-8.0 [facility] Comment on above: Performed By: #### 1 9632617, 5500353, 70991140, 22682868, 0114289, 80168840, 4139290, 1368077, 9072540, 4063460 ####[address] Erythrocyte distribution width (RBC) [Ratio] 16.8 % High 10.9-14.2 [facility] Comment on above: Performed By: #### 1 9520894, 8595068, 64637514, 99637411, 0093147, 56151675, 0613229, 9611339, 3557864, 0006409 ####[address] [place] [address] Hematocrit (Bld) [Volume fraction] 46.0 % Normal 34.0-46.0 [facility] Comment on above: Performed By: #### 1 3180195, 8043802, 89781737, 80877392, 3622574, 27878203, 4949349, 2509409, 6808611, 5508672 ####[address] [address] Hemoglobin (Bld) [Mass/Vol] 15.1 g/dL Normal 12.0-16.0 [facility] Comment on above: Performed By: #### 1 5680418, 4805408, 55639418, 31046698, 7034114, 76679397, 8036855, 0235664, 7830518, 4953423 ####[facility] [address] [place] [address] Lymph Absolute 3.6 E9/L Normal 1.0-4.0 [facility] Comment on above: Performed By: #### 1 8564112, 2762185, 51565750, 28868211, 2105211, 35687965, 7903873, 9554148, 8041998, 9967307 ####[address] [place] [address] Lymphocytes/100 WBC (Bld) 30.9 % Normal 14.0-50.0 [facility] Comment on above: Performed By: #### 1 5120835, 4485135, 66095141, 71905483, 6410495, 35584664, 1815425, 0509251, 9115978, 8665090 ####[facility] [address] [place] [address] MCH (RBC) [Entitic mass] 27.6 pg Normal 27.0-34.0 [facility] Comment on above: Performed By: #### 1 1393373, 2474251, 64035708, 70829774, 0184006, 35971487, 0140009, 4748552, 7038284, 3320365 ####[facility] [address] [place] [address] MCHC (RBC) [Mass/Vol] 32.8 g/dL Normal 31.4-36.0 [facility] Comment on above: Performed By: #### 1 6119556, 8344259, 63621160, 43447496, 8141499, 82536975, 2658151, 6761190, 5236642, 3204779 ####[address] [place] [address] MCV (RBC) [Entitic vol] 84.3 fL Normal 80.0-100.0 [facility] Comment on above: Performed By: #### 1 5734191, 0680031, 27014512, 81793449, 0444693, 72345750, 5638515, 1166686, 9753461, 9447110 ####[facility] [address] [place] [address] [place] Absolute 0.9 E9/L Normal 0.2-1.0 [facility] Comment on above: Performed By: #### 1 4098039, 4754662, 91065590, 53407305, 6627432, 02464006, 7605849, 3651608, 3276527, 7424614 ####[facility] [address] [place] [address] Monocytes/100 WBC (Bld) 8.1 % Normal 4.0-14.0 [facility] Comment on above: Performed By: #### 1 4473967, 2372898, 93003142, 57951224, 8721546, 20360659, 3999217, 6282853, 2791173, 1910268 ####[facility] [address] [place] [address] Neutro Absolute 6.6 E9/L Normal 2.0-7.5 [facility] Comment on above: Performed By: #### 1 2347651, 0131355, 56369043, 43377627, 6969695, 12901842, 2152906, 5831888, 8714256, 4994956 ####[facility] [address] [place] [address] Neutro Auto 56.6 % Normal 36.0-75.0 [facility] Comment on above: Performed By: #### 1 4917133, 7927217, 33589491, 15038897, 1685242, 68781284, 6843433, 9840720, 2856414, 2677964 ####[facility] [address] [place] [address] Platelet 431.0 E9/L Normal 150.0-500.0 [facility] Comment on above: Performed By: #### 1 2938554, 4055449, 92161303, 67195482, 9916104, 85099984, 5190133, 6739158, 6182503, 4383635 ####[facility] [address] [place] [address] Platelet mean volume (Bld) [Entitic vol] 8.5 fL Normal 6.4-10.8 [facility] Comment on above: Performed By: #### 1 7852560, 6423760, 20500236, 66989677, 6550534, 08324589, 6518312, 5119043, 6669636, 4055303 ####[facility] [address] [place] [address] RBC 5.5 E12/L Normal 4.3-5.9 [facility] Comment on above: Performed By: #### 1 5989565, 2468710, 96446867, 90818278, 9223848, 37146340, 0561893, 3211126, 2661572, 4136792 ####[facility] [address] [place] [address] WBC 11.6 E9/L High 4.0-11.0 [facility] Comment on above: Performed By: #### 1 8373887, 1979958, 33097677, 14703152, 7570075, 87697826, 4311847, 3315274, 2202100, 5786324 ####[facility] [address] [place] [address] CHEMISTRYOrdered By: SYSTEM SYSTEM on 07-05-2023 Troponin 51.10 pg/mL Invalid Interpretation Code 10.10 - 27.10 pg/mL Remisol Chem Comment on above: Result Comment: Crit ical Result I_TnIHS:51.1 Called to and read back by: DR. JUAN MAS at: 07/05/2023 21:51:38 by:[id number] Critical Result Verified by Previous Result Interpretive Data: T he 95% CI (Confidence Interval) PPV (Positive Predictive Value) for myocardial infarction in females is 38 pg/mL, in males 51 pg/mL. The results should be used in conjunction with clinical conditions of myocardial infarction. (Access High Sensitivity Troponin I Instructions For Use, IPM [place], December 2017) Troponin 51.70 pg/mL Invalid Interpretation Code 10.10 - 27.10 pg/mL [facility] Chem S Comment on above: Interpretive Data: T he 95% CI (Confidence Interval) PPV (Positive Predictive Value) for myocardial infarction in females is 38 pg/mL, in males 51 pg/mL. The results should be used in conjunction with clinical conditions of myocardial infarction. (Access High Sensitivity Troponin I Instructions For Use, IPM [place], December 2017) Result Comment: Crit ical Result [...] back by: JOHNNA PERKINS at: 07/05/2023 16:37:35 by:[id number] Interpretive Data: T he 95% CI (Confidence [...] 508 pg/mL High 5 - 80 pg/mL [facility] COAGULATIONOrdered By: Richar Kumar on 07-05-2023 aPTT Coag (PPP) [Time] 27.2 s Normal 25.1 - 36.5 second(s) [facility] Auto Coag Comment on above: Interpretive Data: [...] [Relative time] 1.01 {INR} Invalid Interpretation Code [facility] Auto Coag Comment on above: Interpretive Data: I NR results are specifically intended to assess patients stabilized on long-term Anticoagulation therapy suggested INR s Less Intensive Anticoagulation 2.0 3.0 Conventional Range 3.0 4.5 PT Coag (PPP) [Time] 11.2 s Normal 9.4 - 1 2.5 second(s) [facility] Auto Coag Comment on above: Interpretive Data: [...] Consent for Treatmenton 06-15 Consent for Treatment [id number]#1 .00TIFF Normal [facility] Digoxinon 07-05-2023 Digoxin Lvl <0.2 Low 0.5-1.9 [facility] Comment on above: Performed By: #### 1 9729410, 0188136, 72428177, 74882887, 1841799, 59670642, 9283865, 8094304, 4524666, 6995966 ####[facility] [address] [place] [address] ED Note-Physicianon 07-05-19 ED Note-Physician Basic Information [...] patient states she was just released from [facility] 36 hours ago. She states she [...] acute int (more content not included)... Normal [facility] Comment on above: Result Comment: Elec tronically [...] Normal 80.0 - 100.0 fL Remisol Heme [place] Absolute 0.9 E9/L Normal 0.2 - 1.0 [...] 07-05-2023 Albumin [Mass/Vol] 4.3 g/dL Normal 3.3-5.0 [facility] Comment on above: Performed By: #### 1 8971186, 7351227, 01541901, 36322164, 5105764, 70571661, 7633839, 2139084, 3742050, 8310080 ####[address] [place] [address] Albumin/Globulin [Mass ratio] 1.4 {ratio} Normal 1.1-2.2 [facility] Comment on above: Performed By: #### 1 8995589, 2895213, 32444290, 45814372, 5616723, 70133404, 6021129, 7919875, 0426385, 6203799 ####[address] [place] [address] Alk Phos 77 Int._Unit/L Normal 21-98 [facility] Comment on above: Performed By: #### 1 1188702, 2261587, 79572977, 10104912, 2250766, 27378206, 6267393, 8861605, 5004350, 6022873 ####[address] [place] [address] ALT 20 Int._Unit/L Normal 6-46 [facility] Comment on above: Performed By: #### 1 3210087, 7657580, 29555559, 78631599, 8457952, 26944345, 7551376, 3510870, 6377756, 1917704 ####[address] [address] AST 23 Int._Unit/L Normal 5-43 [facility] Comment on above: Performed By: #### 1 7546384, 1229614, 53654862, 31258521, 2017751, 27132770, 7169587, 8152124, 8073462, 0290240 ####[address] [place] [address] Bili Direct 0.1 mg/dL Normal 0.0-0.4 [facility] Comment on above: Performed By: #### 1 9279649, 6111395, 82583015, 04474964, 5763339, 21228020, 6312270, 1522621, 0281568, 2180974 ####[address] [place] [address] Bili Indirect 0.5 mg/dL Normal 0.1-0.9 [facility] Comment on above: Performed By: #### 1 3923127, 4327384, 76669741, 00964737, 9433879, 31111775, 6847420, 5138236, 4054219, 6464208 ####[facility] [address] [place] [address] Bili Total 0.6 mg/dL Normal 0.0-1.1 [facility] Comment on above: Performed By: #### 1 1606844, 1899975, 36154001, 82026958, 1783219, 28429092, 9307517, 3753249, 2804595, 5491969 ####[address] [place] [address] Globulin (S) [Mass/Vol] 3.0 g/dL Normal 1.4-4.0 [facility] Comment on above: Performed By: #### 1 6097384, 8868574, 27258310, 63027161, 5479887, 43185271, 5456424, 7322680, 9520242, 4071031 ####[facility] [address] [place] [address] Protein [Mass/Vol] 7.3 g/dL Normal 6.0-7.8 [facility] Comment on above: Performed By: #### 1 6479118, 2502636, 77249735, 21447309, 3226432, 72591946, 9347268, 2156975, 6416836, 4159535 ####[facility] [address] [place] [address] Lipase Levelon 07-05-2023 Lipase Lvl 22 unit/L Normal 13-58 [facility] Comment on above: Performed By: #### 1 7769441, 0179323, 92251250, 92491147, 7907528, 36646171, 8313348, 0900514, 5328526, 2012318 ####[address] [place] [address] Magnesiumon 07-05-2023 Magnesium [Mass/Vol] 2.3 mg/dL Normal 1.3-2.4 [facility] Comment on above: Performed By: #### 1 4508454, 4111037, 96643752, 50356707, 5748869, 49211516, 0737374, 7039714, 2464954, 5724004 ####[facility] [address] [place] [address] Monitor Recordon 07-05-2023 Monitor Record [id number]# 1.00TIFF Normal [facility] Monitor Record [id number]# 1.00TIFF Normal [facility] Monitor Record [id number]# 1.00TIFF Normal [facility] PT & PTTon 07-05-2023 aPTT Coag (PPP) [Time] 27.2 second(s) Normal 25.1-36.5 [facility] Comment on above: Result Comment: Para meter [...] - 109.0 sec. Performed By: #### 1 9447505, 8714413, 16102919, 41267649, 3140285, 89401663, 4681480, 6787310, 6266653, 3153716 ####[facility] [address] [place] [address] INR Coag (PPP) [Relative time] 1.01 {INR} Invalid Interpretation Code [facility] Comment on above: Result Comment: INR results are specifically intended to assess patients stabilized on long-term Anticoagulation therapy suggested INR?s ?Less Intensive Anticoagulation? 2.0 ? 3.0 Conventional Range 3.0 ? 4.5 Performed By: #### 1 9325421, 1088088, 94003904, 89349067, 0682574, 02630587, 7373255, 2732275, 4924119, 8768686 ####[facility] [address] [place] [address] PT Coag (PPP) [Time] 11.2 second(s) Normal 9.4-12.5 [facility] Comment on above: Result Comment: 15 d [...] no normal ranges. Performed By: #### 1 9841230, 8851814, 81147353, 01567329, 7233408, 16990064, 7566235, 8284442, 4294144, 5892354 ####[facility] [address] [place] [address] Pre-Arrival Noteon 4 Pre-Arrival Note Pre-Arrival Summary Name: , [place] [facility] Current Date: 07/05/2023 15:02:00 EST Gender: Female Date of : Age: 63 Pre-Arrival Type: EMS ETA: 07/05/2023 15:21:00 EST Primary Care Physician: Presenting Problem: HR 40s, CP, SOB, dizziness, abd. pain, nausea Pre-Arrival User: Oxana Pace RN Referring Source: Location: [place] Completion Date/Time: 07/05/2023 14:51:00 [facility] Emergency Department Pre-Hospital Report Form Vital Signs: Pre-Hospital Report: Treatment in Route: Response to Treatment: Misc. Issues: Normal [facility] Troponin 0 Hr.on 07-05-2023 Troponin 49.20 pg/mL Abnormal 10.10-27.10 [facility] Comment on above: Result Comment: Crit ical Result Verified by Repeat Analysis Critical Result I_TnIHS:49.2 Called to and read back by: JOHNNA PERKINS at: 07/05/2023 16:37:35 by:[id number] The 95% CI (Confidence Interval) PPV (Positive Predictive Value) for myocardial infarction in females is 38 pg/mL, in males 51 pg/mL. The results should be used in conjunction with clinical conditions of myocardial infarction. (Access High Sensitivity Troponin I Instructions For Use, Johana Christianne, December 2017) Performed By: #### 1 7184324, 8154875, 58397351, 97869232, 1383540, 59251246, 8097343, 8185690, 0635199, 6931799 ####[facility] [address] [place] [address] Troponin 3 Hr.on 07-05-2023 Troponin 51.70 pg/mL Abnormal 10.10-27.10 [facility] Comment on above: Result Comment: The 95% CI (Confidence Interval) PPV (Positive Predictive Value) for myocardial infarction in females is 38 pg/mL, in males 51 pg/mL. The results should be used in conjunction with clinical conditions of myocardial infarction. (Access High Sensitivity Troponin I Instructions For Use, IPM [place], December 2017) Critical Result Verified by Previous Result Results Called To Johnna Perkins (ER) By And Read Back For Confirmation On 07/05/2023 19:18:03 EST. Performed By: #### 1 [id number] ####[facility] [address] [place] [address] Troponin 6 Hr.on 07-05-2023 Troponin 51.10 pg/mL Abnormal 10.10-27.10 [facility] Comment on above: Result Comment: Crit ical Result I_TnIHS:51.1 Called to and read back by: DR. JUAN MAS at: 07/05/2023 21:51:38 by:[id number] Critical Result Verified by Previous Result The 95% CI (Confidence Interval) PPV (Positive Predictive Value) for myocardial infarction in females is 38 pg/mL, in males 51 pg/mL. The results should be used in conjunction with clinical conditions of myocardial infarction. ([place] High Sensitivity Troponin I Instructions For Use, IPM [place], December 2017) Performed By: #### 1 [id number] ####[facility] [address] [place] [address] XR Chest Single Viewon 07-05 XR Chest [...] mGy = na DAP = na Normal [facility] eGFRon 07-05-2023 eGFR 39 mL/min/1.73 m2 Low >=59 [facility] Comment on above: Order Comment: Order added by Discern Expert. Performed By: #### 1 4153829, 0563150, 16417846, 48166598, 4123741, 74793707, 8690366, 5423425, 5185007, 8443617 ####[facility] [address] [place] [address] 36on 07-03-2023 36 Unable to reach pt . Phone not in service [facility] 36 Pts phone number not in service. Spoke to pts friend Arvind and requested he have pt call us, he agrees. [facility] Documentationon 07-03-2023 Documentation [id number] Vivian Vann 1960 F Date Provider Department [facility] 07/03/2023 [facility] No family history on file Reason for Visit and Comments: HF inpatient satisfaction suvrey sent. [Other] [facility] 30on 07-02-2023 30 The patient is [...] and behaviors that affect risk of falls Keavy fall precautions as indicated by assessment Educate [...] and prevent overall improvement and discharge Normal [facility] 30 The patient is Moderately Stable - [...] and behaviors that affect risk of falls Keavy fall precautions as indicated by assessment Educate [...] and prevent overall improvement and discharge Normal [facility] BASIC METABOLIC PANELon - Anion gap [Moles/Vol] 11 mmol/L Normal 7-20 [facility] Comment on above: Performed By: #### L [id number] #### [facility] (BEAKER) [address] [place] [address] Calcium [Mass/Vol] 9.0 mg/dL Normal 8.6-10.3 [facility] Comment on above: Performed By: #### L [id number] #### [facility] (BEAKER) [address] [place] [address] Chloride [Moles/Vol] 91 mmol/L Low 98-107 [facility] Comment on above: Performed By: #### L [id number] #### [facility] (BEAKER) [address] [place] [address] CO2 [Moles/Vol] 37 mmol/L High 21-31 [facility] Comment on above: Performed By: #### L [id number] #### [facility] ([facility]ER) [address] [place] [address] Creatinine [Mass/Vol] 0.89 mg/dL Normal 0.60-1.20 [facility] Comment on above: Performed By: #### L [id number] #### [facility] (BEAKER) [address] [place] [address] GLOMERULAR FILTRATION RATE ML/MIN/1.73 SQ M.PREDICTED 73.3 mL/min/1.73m*2 Normal >60.0 [facility] Comment on above: Result Comment: The [facility]???s estimated glomerular filtration rate (eGFR) will no [...] individuals. Performed By: #### L [id number] #### [facility] ([facility]) [address] [place] [address] Glucose [Mass/Vol] 123 mg/dL High 70-100 [facility] Comment on above: Performed By: #### L [id number] #### [facility] ([facility]) [address] [place] [address] Potassium [Moles/Vol] 3.7 mmol/L Normal 3.5-5.1 [facility] Comment on above: Performed By: #### L [id number] #### [facility] ([facility]) [address] [place] [address] Sodium [Moles/Vol] 135 mmol/L Low 136-145 [facility] Comment on above: Performed By: #### L [id number] #### [facility] ([facility]) [address] [place] [address] Urea nitrogen [Mass/Vol] 29 mg/dL High 7-25 [facility] Comment on above: Performed By: #### L [id number] #### [facility] ([facility]) [address] [place] [address] UREA NITROGEN/CREATININE (MASS RATIO) IN SER/PLAS 32.6 Normal [facility] Comment on above: Performed By: #### L [id number] #### [facility] ([facility] [address] [place] [address] CBCon 07-02-2023 Erythrocyte distribution width (RBC) [Ratio] 15.8 % High 11.5-15.0 [facility] Comment on above: Performed By: #### L [id number] ####[facility] ([facility])[address] [place] [address] ERYTHROCYTE MEAN CORPUSCULAR HEMOGLOBIN CONCENTRATION (G/DL) BY AUTOMATED 31.8 g/dL Low 32.0-35.0 [facility] Comment on above: Performed By: #### L [id number] ####[facility] ([facility])[address] [place] [address] Hematocrit (Bld) [Volume fraction] 44.0 % Normal 36.0-48.0 [facility] Comment on above: Performed By: #### L [id number] ####[facility] ([facility])[address] [place] [address] Hemoglobin (Bld) [Mass/Vol] 14.0 g/dL Normal 12.0-15.0 [facility] Comment on above: Performed By: #### L [id number] ####[facility] ([facility])[address] [place] [address] MCH (RBC) [Entitic mass] 27.9 pg Normal 27.0-33.0 [facility] Comment on above: Performed By: #### L [id number] ####[facility] ([facility])[address] [place] [address] MCV (RBC) [Entitic vol] 87.8 fL Normal 82.0-98.0 [facility] Comment on above: Performed By: #### L [id number] ####[facility] ([facility])[address] [place] [address] PLATELETS (10*3/UL) IN BLOOD AUTOMATED COUNT 285 10*3/uL Normal 150-400 [facility] Comment on above: Performed By: #### L [id number] ####[facility] (BEAKER)[address] [place] [address] RBC (Bld) [#/Vol] 5.01 10*6/uL High 3.80-5.00 [facility] Comment on above: Performed By: #### L [id number] ####[facility] [place] [address] WBC (Bld) [#/Vol] 8.89 10*3/uL Normal 4.00-10.60 [facility] Comment on above: Performed By: #### L [id number] ####[facility] ([facility])[address] [place] [address] DSon 07-02-2023 DS Admit Date 06/29/2023 Discharge Date 07/02/2023 Discharge Diagnosis NSTEMI Acute on chronic HFpEF NYHA class 2 CAD DMII noninsulin dependent Chronic pain Anxiety GERD Tobacco abuse Discharge Disposition [place] [facility] [place] Discharge Medications Your medication list START [...] Medications These medications were sent to [facility] [place], [place] - [address] [facility] [place] [address] [address] [facility] [place] [address], [facility] [address] furosemide 40 mg tablet spironolactone 25 mg tablet Activity Normal activity as tolerated Diet Continue on the same type of diet and foods as you were eating before your admission. Drink plenty of water. Allergies Hay fever and allergy relief and House dust Hospital Course History of Present Illness Vivian Vann is an 63 y.o. female who came from [facility] as direct asmission for NSTEMI. Patient presented 06/28/23 to [place] ED for c/o chest pain and lower back pain. Patient troponin level found to be 557 and EKG showed new ischemia and inverted T-waves, NSTEMI. She was given nitroglycerin and started on heparin drip. Patient is 1 year s/p stent placement at [facility] on plavix and aspirin. Dr. Yoo with cardiology agreed to patient transfer here to [facility] with hospital medicine admitting and cardiology consult [...] back pending. Laboratory workup here at [facility] shows CBC unremarkable w/ exception of NCHC [...] General: Abdo (more content not included)... Normal [facility] POCT GLUCOSE METER UNSOLICIT ED RESULTSon 07-02-2023 Glucose [Mass/Vol] 117 mg/dL High 70-105 [facility] Comment on above: Order Comment: Waive d Testing in the ED is performed under the ED CLIA certificate #[id number]. Result Comment: [email or web address] Performed By: #### L [id number] #### [facility] (BEAKER) [address] [place] [address] Glucose [Mass/Vol] 110 mg/dL High 70-105 [facility] Comment on above: Order Comment: Waive d Testing in the ED is performed under the ED CLIA certificate #[id number]. Result Comment: [email or web address] Performed By: #### L [id number] ####[facility] (BEAKER)[address] [place] [address] 30on 07-01-2023 30 The patient is Moderately [...] and behaviors that affect risk of falls Keavy fall precautions as indicated by assessment Educate [...] and prevent overall improvement and discharge Normal [facility] BASIC METABOLIC PANELon - Anion gap [Moles/Vol] 10 mmol/L Normal 7-20 [facility] Comment on above: Performed By: #### L [id number] #### [facility] (BEAKER) [address] [place] [address] Calcium [Mass/Vol] 8.3 mg/dL Low 8.6-10.3 [facility] Comment on above: Performed By: #### L [id number] #### [facility] ([facility] [address] [place] [address] Chloride [Moles/Vol] 98 mmol/L Normal 98-107 [facility] Comment on above: Performed By: #### L [id number] #### [facility] ([facility]) [address] [place] [address] CO2 [Moles/Vol] 35 mmol/L High 21-31 [facility] Comment on above: Performed By: #### L [id number] #### [facility] ([facility]) [address] [place] [address] Creatinine [Mass/Vol] 1.08 mg/dL Normal 0.60-1.20 [facility] Comment on above: Performed By: #### L [id number] #### [facility] ([facility]) [address] [place] [address] GLOMERULAR FILTRATION RATE ML/MIN/1.73 SQ M.PREDICTED 58.1 mL/min/1.73m*2 Low >60.0 [facility] Comment on above: Result Comment: The [facility]???s estimated glomerular filtration rate (eGFR) will no [...] individuals. Performed By: #### L [id number] #### [facility] ([facility] [address] [place] [address] Glucose [Mass/Vol] 116 mg/dL High 70-100 [facility] Comment on above: Performed By: #### L [id number] #### [facility] ([facility]) [address] [place] [address] Potassium [Moles/Vol] 3.7 mmol/L Normal 3.5-5.1 [facility] Comment on above: Performed By: #### L [id number] #### [facility] ([facility]) [address] [place] [address] Sodium [Moles/Vol] 139 mmol/L Normal 136-145 [facility] Comment on above: Performed By: #### L [id number] #### [facility] ([facility]) [address] [place] [address] Urea nitrogen [Mass/Vol] 27 mg/dL High 7-25 [facility] Comment on above: Performed By: #### L [id number] #### [facility] ([facility]) [address] [place] [address] UREA NITROGEN/CREATININE (MASS RATIO) IN SER/PLAS 25.0 Normal [facility] Comment on above: Performed By: #### L [id number] #### [facility] ([facility]) [address] [place] [address] POCT GLUCOSE METER UNSOLICIT ED RESULTSon 07-01-2023 Glucose [Mass/Vol] 132 mg/dL High 70-105 [facility] Comment on above: Order Comment: Waive d Testing in the ED is performed under the ED CLIA certificate #[id number]. Result Comment: [email or web address] Performed By: #### L [id number] ####[facility] ([facility])[address] [place] [address] Glucose [Mass/Vol] 106 mg/dL High 70-105 [facility] Comment on above: Order Comment: Waive d Testing in the ED is performed under the ED CLIA certificate #[id number]. Result Comment: [email or web address] Performed By: #### L [id number] ####[facility] ([facility] [place] [address] Glucose [Mass/Vol] 121 mg/dL High 70-105 [facility] Comment on above: Order Comment: Waive d Testing in the ED is performed under the ED CLIA certificate #[id number]. Result Comment: [email or web address] Performed By: #### L [id number] ####[facility] ([facility])[address] [place] [address] Glucose [Mass/Vol] 105 mg/dL Normal 70-105 [facility] Comment on above: Order Comment: Waive d Testing in the ED is performed under the ED CLIA certificate #[id number]. Result Comment: [email or web address] Performed By: #### L [id number] #### [facility] ([facility]) [address] [place] [address] 30on 06-30-2023 30 The patient is Moderately [...] and maintained or improved Outcome: Progressing Normal [facility] ANTI-XA (HEPARIN LEVEL)on HEPARIN UNFRACTIONATED (U/ML) IN PPP BY CHROMOGENIC METHOD <0.10 Invalid Interpretation Code 0.3-0.7 [facility] Comment on above: Order Comment: Check anti-Xa level every 6 hours while on heparin infusion, or per protocol. Result Comment: [place] roxaban and Apixaban will interfere with the anti Xa assay used to monitor UFH and LMWH. Performed By: #### L [id number] #### [facility] ([facility]) [address] [place] [address] CBCon 06-30-2023 Erythrocyte distribution width (RBC) [Ratio] 15.3 % High 11.5-15.0 [facility] Comment on above: Performed By: #### L [id number] ####[facility] (BEAKER)[address] [place] [address] ERYTHROCYTE MEAN CORPUSCULAR HEMOGLOBIN CONCENTRATION (G/DL) BY AUTOMATED 32.2 g/dL Normal 32.0-35.0 [facility] Comment on above: Performed By: #### L [id number] ####[facility] ([facility] [place] [address] Hematocrit (Bld) [Volume fraction] 35.7 % Low 36.0-48.0 [facility] Comment on above: Performed By: #### L [id number] ####[facility] ([facility] [place] [address] Hemoglobin (Bld) [Mass/Vol] 11.5 g/dL Low 12.0-15.0 [facility] Comment on above: Performed By: #### L [id number] ####[facility] (BEAKER)[address] [place] [address] MCH (RBC) [Entitic mass] 28.1 pg Normal 27.0-33.0 [facility] Comment on above: Performed By: #### L [id number] ####[facility] (BEAKER)[address] [place] [address] MCV (RBC) [Entitic vol] 87.3 fL Normal 82.0-98.0 [facility] Comment on above: Performed By: #### L [id number] ####[facility] (BEAKER)[address] [place] [address] PLATELETS (10*3/UL) IN BLOOD AUTOMATED COUNT 219 10*3/uL Normal 150-400 [facility] Comment on above: Performed By: #### L [id number] ####[facility] (BEAKER)[address] [place] [address] RBC (Bld) [#/Vol] 4.09 10*6/uL Normal 3.80-5.00 [facility] Comment on above: Performed By: #### L [id number] ####[facility] (BEAKER)[address] [place] [address] WBC (Bld) [#/Vol] 10.22 10*3/uL Normal 4.00-10.60 [facility] Comment on above: Performed By: #### L [id number] ####[facility] (BEAKER)[address] [place] [address] CONSULTon 06-30-2023 CONSULT Clinical Nutrition Assessment Name: [...] with questions and contact the dietitian via SoundCloud chat 8A-4P Sunday-Sunday. Or call the dietitian's office at extension [phone]. For weekends/holidays, the dietitian's can be reached by paging [phone] from 9A-3P. Unable to be reached via XIPWIRE chat on Sunday & .) Normal [facility] HEMOGLOBIN A1Con 06-30-2023 Glucose [Mass/Vol] 143 mg/dL Normal [facility] Comment on above: Performed By: #### L [id number] ####[facility] (BEAKER)[address] [place] [address] HbA1c (Bld) [Mass fraction] 6.6 % High 4.0-6.0 [facility] Comment on above: Performed By: #### L [id number] ####[facility] (BEAKER)[address] [place] [address] LACTIC ACID WITH 4 HOUR REFL EXon 06-30-2023 LACTATE (MMOL/L) IN SER/PLAS 1.9 mmol/L Normal 0.5-2.2 [facility] Comment on above: Performed By: #### L [id number] #### [facility] (BEAKER) [address] [place] [address] POCT GLUCOSE METER UNSOLICIT ED RESULTSon 06-30-2023 Glucose [Mass/Vol] 156 mg/dL High 70-105 [facility] Comment on above: Order Comment: Waive d Testing in the ED is performed under the ED CLIA certificate #[id number]. Result Comment: [email or web address] Performed By: #### L [id number] ####[facility] (BEAKER)[address] [place] [address] Glucose [Mass/Vol] 149 mg/dL High 70-105 [facility] Comment on above: Order Comment: Waive d Testing in the ED is performed under the ED CLIA certificate #[id number]. Result Comment: [email or web address] Performed By: #### L [id number] #### [facility] ([facility]) [address] [place] [address] Glucose [Mass/Vol] 181 mg/dL High 70-105 [facility] Comment on above: Order Comment: Waive d Testing in the ED is performed under the ED CLIA certificate #[id number]. Result Comment: [email or web address] Performed By: #### L [id number] #### [facility] ([facility] [address] [place] [address] 30on 06-29-2023 30 The patient is Moderately [...] and maintained or improved Outcome: Progressing Normal [facility] 30 The patient is Moderately Stable - Low risk of patient condition declining or worsening The patient's goals for the shift include no chest pain The clinical goals for the shift include vss Over the shift, the patient did not make progress toward the following goals. Barriers to progression include . Recommendations to address these barriers include . Normal [facility] APTTon 06-29-2023 ACTIVATED PARTIAL THROMBOPLASTIN TIME IN PPP BY COAGULATION ASSAY 67.3 Seconds High 25.0-35.0 [facility] Comment on above: Result Comment: Clin ical significance of the APTT is questionable in the presence of heparin. Performed By: #### L [id number] #### [facility] ([facility] [address] [place] [address] B-TYPE NATRIURETIC PEPTIDEon 06-29-2023 Natriuretic peptide B (Bld) [Mass/Vol] 1683 pg/mL High 0-100 [facility] Comment on above: Performed By: #### L [id number] #### [facility] ([facility] [address] [place] [address] BASIC METABOLIC PANELon 06-14 Anion gap [Moles/Vol] 14 mmol/L Normal 7-20 [facility] Comment on above: Performed By: #### L [id number] #### [facility] ([facility]) [address] [place] [address] Calcium [Mass/Vol] 8.2 mg/dL Low 8.6-10.3 [facility] Comment on above: Performed By: #### L [id number] #### [facility] ([facility]) [address] [place] [address] Chloride [Moles/Vol] 102 mmol/L Normal 98-107 [facility] Comment on above: Performed By: #### L [id number] #### [facility] ([facility]) [address] [place] [address] CO2 [Moles/Vol] 25 mmol/L Normal 21-31 [facility] Comment on above: Performed By: #### L [id number] #### [facility] ([facility]) [address] [place] [address] Creatinine [Mass/Vol] 1.04 mg/dL Normal 0.60-1.20 [facility] Comment on above: Performed By: #### L [id number] #### [facility] ([facility]) [address] [place] [address] GLOMERULAR FILTRATION RATE ML/MIN/1.73 SQ M.PREDICTED 60.8 mL/min/1.73m*2 Normal >60.0 [facility] Comment on above: Result Comment: [facility]???s estimated glomerular filtration rate (eGFR) will no [...] individuals. Performed By: #### L [id number] #### [facility] ([facility]) [address] [place] [address] Glucose [Mass/Vol] 268 mg/dL High 70-100 [facility] Comment on above: Performed By: #### L [id number] #### [facility] ([facility]) [address] [place] [address] Potassium [Moles/Vol] 4.1 mmol/L Normal 3.5-5.1 [facility] Comment on above: Performed By: #### L [id number] #### [facility] ([facility]) [address] [place] [address] Sodium [Moles/Vol] 137 mmol/L Normal 136-145 [facility] Comment on above: Performed By: #### L [id number] #### [facility] ([facility]) [address] [place] [address] Urea nitrogen [Mass/Vol] 14 mg/dL Normal 7-25 [facility] Comment on above: Performed By: #### L [id number] #### [facility] ([facility]) [address] [place] [address] UREA NITROGEN/CREATININE (MASS RATIO) IN SER/PLAS 13.5 Normal [facility] Comment on above: Performed By: #### L [id number] #### [facility] ([facility]) [address] [place] [address] CBCon 06-29-2023 Erythrocyte distribution width (RBC) [Ratio] 15.3 % High 11.5-15.0 [facility] Comment on above: Performed By: #### L [id number] #### [facility] ([facility]) [address] [place] [address] ERYTHROCYTE MEAN CORPUSCULAR HEMOGLOBIN CONCENTRATION (G/DL) BY AUTOMATED 31.8 g/dL Low 32.0-35.0 [facility] Comment on above: Performed By: #### L [id number] #### [facility] ([facility]) [address] [place] [address] Hematocrit (Bld) [Volume fraction] 39.3 % Normal 36.0-48.0 [facility] Comment on above: Performed By: #### L [id number] #### [facility] ([facility]) [address] [place] [address] Hemoglobin (Bld) [Mass/Vol] 12.5 g/dL Normal 12.0-15.0 [facility] Comment on above: Performed By: #### L [id number] #### [facility] ([facility]) [address] [place] [address] MCH (RBC) [Entitic mass] 28.4 pg Normal 27.0-33.0 [facility] Comment on above: Performed By: #### L [id number] #### [facility] ([facility]) [address] [place] [address] MCV (RBC) [Entitic vol] 89.3 fL Normal 82.0-98.0 [facility] Comment on above: Performed By: #### L [id number] #### [facility] ([facility]) [address] [place] [address] PLATELETS (10*3/UL) IN BLOOD AUTOMATED COUNT 218 10*3/uL Normal 150-400 [facility] Comment on above: Performed By: #### L [id number] #### [facility] ([facility]) [address] [place] [address] RBC (Bld) [#/Vol] 4.40 10*6/uL Normal 3.80-5.00 [facility] Comment on above: Performed By: #### L [id number] #### [facility] [address] [place] [address] WBC (Bld) [#/Vol] 9.91 10*3/uL Normal 4.00-10.60 [facility] Comment on above: Performed By: #### L [id number] #### [facility] ([facility]AKER) [address] [place] [address] COMPREHENSIVE METABOLIC PANE Pollo 06-29-2023 Albumin [Mass/Vol] 3.8 g/dL Normal 3.5-5.7 [facility] Comment on above: Performed By: #### L [id number] ####[facility] (BEAKER)[address] [place] [address] ALP [Catalytic activity/Vol] 77 U/L Normal 34-104 [facility] Comment on above: Performed By: #### L [id number] ####[facility] (BEAKER)[address] [place] [address] ALT [Catalytic activity/Vol] 23 U/L Normal 7-52 [facility] Comment on above: Performed By: #### L [id number] ####[facility] (BEAKER)[address] [place] [address] Anion gap [Moles/Vol] 10 mmol/L Normal 7-20 [facility] Comment on above: Performed By: #### L [id number] ####[facility] (BEAKER)[address] [place] [address] AST [Catalytic activity/Vol] 23 U/L Normal 13-39 [facility] Comment on above: Performed By: #### L [id number] ####[facility] (BEAKER)[address] [place] [address] Bilirubin [Mass/Vol] 0.4 mg/dL Normal 0.3-1.0 [facility] Comment on above: Performed By: #### L [id number] ####[facility] (BEAKER)[address] [place] [address] Calcium [Mass/Vol] 8.6 mg/dL Normal 8.6-10.3 [facility] Comment on above: Performed By: #### L [id number] ####[facility] ([facility]ER)[address] [place] [address] Chloride [Moles/Vol] 107 mmol/L Normal 98-107 [facility] Comment on above: Performed By: #### L [id number] ####[facility] (BEAKER)[address] [place] [address] CO2 [Moles/Vol] 27 mmol/L Normal 21-31 [facility] Comment on above: Performed By: #### L [id number] ####[facility] ([facility] [place] [address] Creatinine [Mass/Vol] 1.01 mg/dL Normal 0.60-1.20 [facility] Comment on above: Performed By: #### L [id number] ####[facility] ([facility])[address] [place] [address] GLOMERULAR FILTRATION RATE ML/MIN/1.73 SQ M.PREDICTED 62.9 mL/min/1.73m*2 Normal >60.0 [facility] Comment on above: Result Comment: [facility]???s estimated glomerular filtration rate (eGFR) will no [...] of individuals. Performed By: #### L [id number] ####[facility] (BEAKER)[address] [place] [address] Glucose [Mass/Vol] 148 mg/dL High 70-100 [facility] Comment on above: Performed By: #### L [id number] ####[facility] (BEAKER)[address] [place] [address] Potassium [Moles/Vol] 4.2 mmol/L Normal 3.5-5.1 Uni [facility] Comment on above: Performed By: #### L [id number] ####[facility] ([facility])[address] [place] [address] Protein [Mass/Vol] 6.3 g/dL Normal 6.0-8.3 [facility] Comment on above: Performed By: #### L [id number] ####[facility] ([facility])[address] [place] [address] Sodium [Moles/Vol] 140 mmol/L Normal 136-145 [facility] Comment on above: Performed By: #### L [id number] ####[facility] ([facility])[address] [place] [address] Urea nitrogen [Mass/Vol] 10 mg/dL Normal 7-25 [facility] Comment on above: Performed By: #### L [id number] ####[facility] ([facility])[address] [place] [address] UREA NITROGEN/CREATININE (MASS RATIO) IN SER/PLAS 9.9 Normal [facility] Comment on above: Performed By: #### L [id number] ####[facility] ([facility])[address] [place] [address] CONSULTon 06-29-2023 CONSULT - Attestation signed by [...] tobacco use comes as a transfer from [facility] due to suspected NSTEMI. Patient was [...] Her troponins were elevated at 557 at [facility] and recheck here shows 0.07. Patient [...] Value Ventricular Rate 61 Atrial Rate 61 MT Interval 150 (more content not included)... Normal [facility] HPon 06-29-2023 HP Interval Pre-Procedural H&P Reason for Consult: NSTEMI HPI: Vivian Vann is a 63 y.o. female with PMH of CAD s/p PCI to LAD (October 2021), HTN, HLD, COPD, tobacco use comes as a transfer from [facility] due to suspected NSTEMI. Patient was [...] Her troponins were elevated at 557 at [facility] and recheck here shows 0.07. Patient [...] Value Ventricular Rate 61 Atrial Rate 61 MT Interval 150 QRS DURATION 88 QT Interval 476 QTC CALCULATION(BAZETT) 479 P Dexter 68 R-Dexter 25 T Wave Dexter 128 Impression Normal sinus rhythm Right atrial [...] deformity. End (more content not included)... Normal [facility] LACTIC ACID WITH 4 HOUR REFL EXon 06-29-2023 LACTATE (MMOL/L) IN SER/PLAS 3.6 mmol/L Critically high 0.5-2.2 [facility] Comment on above: Result Comment: M-MT EVIOUS CRITICAL RESULT Previous result verified on 06/29/2023 1809 on specimen/case [id number] called with component Lactate blood venous for procedure Lactic acid with 4 hour reflex with value 2.7 mmol/L. Performed By: #### L [id number] #### [facility] (BEAKER) [address] [place] [address] LACTATE (MMOL/L) IN SER/PLAS 2.7 mmol/L Critically high 0.5-2.2 [facility] Comment on above: Performed By: #### L [id number] #### [facility] (BEAKER) [address] [place] [address] LACTATE (MMOL/L) IN SER/PLAS 2.5 mmol/L High 0.5-2.2 [facility] Comment on above: Performed By: #### L [id number] ####[facility] ([facility])[address] [place] [address] MAGNESIUMon 06-29-2023 Magnesium [Mass/Vol] 2.1 mg/dL Normal 1.9-2.7 [facility] Comment on above: Performed By: #### L [id number] ####[facility] ([facility])[address] [place] [address] Magnesium [Mass/Vol] 2.2 mg/dL Normal 1.9-2.7 [facility] Comment on above: Performed By: #### L [id number] #### [facility] ([facility]) [address] [place] [address] Magnesium [Mass/Vol] 1.7 mg/dL Low 1.9-2.7 [facility] Comment on above: Performed By: #### L [id number] #### [facility] ([facility]) [address] [place] [address] NURSNOTEon 06-29-2023 NURSNOTE Notified [place] [facility] Hospitalist critical lactate 2.7 no orders received said she would recheck lactate in 4 hrs Normal [facility] PHOSPHORUSon 06-29-2023 Magnesium [Mass/Vol] 3.5 mg/dL Normal 2.5-5.0 [facility] Comment on above: Performed By: #### L [id number] ####[facility] ([facility])[address] [place] [address] PROTIME-INRon 06-29-2023 INR IN PPP BY COAGULATION ASSAY 0.98 Normal 0.90-1.10 [facility] Comment on above: Result Comment: ACCC P [...] CHEST 1995;[id number]. Performed By: #### L [id number] ####[facility] ([facility])[address] [place] [address] PROTHROMBIN TIME (PT) IN PPP BY COAGULATION ASSAY 13.0 Seconds Normal 12.3-14.8 [facility] Comment on above: Performed By: #### L [id number] ####[facility] ([facility])[address] [place] [address] TROPONIN Ion 06-29-2023 Troponin I.cardiac [Mass/Vol] 0.06 ng/mL High 0.00-0.04 [facility] Comment on above: Performed By: #### L [id number] #### [facility] ([facility]) [address] [place] [address] Troponin I.cardiac [Mass/Vol] 0.07 ng/mL High 0.00-0.04 [facility] Comment on above: Performed By: #### L [id number] ####[facility] ([facility])[address] [place] [address] Troponin I.cardiac [Mass/Vol] 0.07 ng/mL High 0.00-0.04 [facility] Comment on above: Performed By: #### L [id number] #### [facility] ([facility]) [address] [place] [address] CBC W MANUAL DIFFon 08-25-19 ANISOCYTOSIS 1+ Normal [facility] Comment on above: Performed By: #### C BCISAIAH ####[facility] Apwjgpvqlw32[address] [place] [address]Dr. Yilan Yañez ATYPICAL LYMPH # Normal [facility] Comment on above: Performed By: #### C BCISAIAH ####[facility] Kwvbsoebhv5858 [place] [phone]. Yilan Yañez ATYPICAL LYMPH % Normal [facility] Comment on above: Performed By: #### C BCISAIAH ####[facility] Geqzptrqas4445 [place] [address]Dr. Yilan Yañez BAND # 0.2 103/ul Normal 0.0-0.3 [facility] Comment on above: Performed By: #### C ROSARIO ####[facility] Vdqwnlnlwn8628 [place] [address]Dr. Yilan Yañez BAND % 1 % Normal 0-5 [facility] Comment on above: Performed By: #### C ROSARIO ####[facility] Wtpihosnfc[address] [place], [place] [address]Dr. Yiashley Yañez BASOM # 0.00 103/ul Normal 0.00-0.10 [facility] Comment on above: Performed By: #### C ROSARIO ####[facility] [address]qfkdkuygy[address] [place], [place] [address]Dr. Nahed Yañez BASOM % 0.0 % Critically low 0.2-2.0 The [facility] Comment on above: Performed By: #### C ROSARIO ####[facility] Btqyygqhvg040[address] [place] [address]Dr. Yilan Yañez BLAST # Normal [facility] Comment on above: Performed By: #### C ROSARIO ####[facility] Cahlavmotp4908 [place] [address]Dr. Yilan Yañez BLAST % Normal [facility] Comment on above: Performed By: #### C ROSARIO ####[facility] Olpoutavsq8950 [place] [address]Dr. Nahed Yañez CORRECTED WBC Normal 4.0-11.0 The [facility] Comment on above: Performed By: #### C ROSARIO ####[facility] Xeltajumsf3064 [place], [place] [address]Nd. Nahed Yañez EOS # 0.00 103/ul Normal 0.00-0.70 [facility] Comment on above: Performed By: #### C ROSARIO ####[facility] Ytvgtqarnb7043 [place] [phone]. Nahed Yañez EOS% 0.0 % Critically low 0.9-7.0 [facility] Comment on above: Performed By: #### C ROSARIO ####[facility] Pwcccpvoqp8331 [place] [phone]. Nahed Yañez HCT 33.9 % Critically low 36.0-48.0 [facility] Comment on above: Performed By: #### C ROSARIO ####[facility] Alkqunsjju8965 [place] [phone]. Nahed Yañez HGB 10.8 g/dl Critically low 12.0-16.0 [facility] Comment on above: Performed By: #### C ROSARIO ####[facility] Nvdtwpchia0394 [place] [phone]. Nahed Yañez HYPOCHROMASIA SLIGHT Normal [facility] Comment on above: Performed By: #### C ROSARIO ####[facility] Ekkpbywdef9375 [place] [phone]. Nahed Yañez LYMPHM # 2.59 103/ul Normal 1.20-3.80 [facility] Comment on above: Performed By: #### C ROSARIO ####[facility] Hrcfwrgblo3520 [place] [phone]. Nahed Yañez LYMPHM% 16.0 % Critically low 20.5-60.0 [facility] Comment on above: Performed By: #### C ROSARIO ####[facility] Adrwlirxhl9136 [place] [phone]. Nahed Yañez MCH 28.5 pg Normal 26.7-34.0 [facility] Comment on above: Performed By: #### C ROSARIO ####[facility] Oiqrzivucr3978 [place] [phone]. Nahed Yañez MCHC 31.9 g/dl Normal 29.9-35.2 [facility] Comment on above: Performed By: #### C ROSARIO ####[facility] Tbngwpspdg9316 [place] [phone]. Nahed Yañez MCV 89.4 fL Normal 81.0-99.0 [facility] Comment on above: Performed By: #### C ROSARIO ####[facility] Vytltosmve4661 [place] [phone]. Nahed Yañez METAMYELOCYTE # Normal [facility] Comment on above: Performed By: #### C ROSARIO ####[facility] Ctafdakqsj3342 [place] [phone]. Nahed Yañez METAMYELOCYTE % Normal [facility] Comment on above: Performed By: #### C ROSARIO ####[facility] Ovkvctmzqc8004 [place] [phone]. Nahed Yañez MONOM# 1.30 103/ul Critically high 0.30-0.80 [facility] Comment on above: Performed By: #### C ROSARIO ####[facility] Axwtitqyyj9606 [place] [phone]. Nahed Yañez MONOM% 8.0 % Normal 1.7-12.0 [facility] Comment on above: Performed By: #### C ROSARIO ####[facility] Enwdistbir8216 [place] [phone]. Nahed Yañez MPV 9.8 fL Normal 9.5-13.5 [facility] Comment on above: Performed By: #### C ROSARIO ####[facility] Heyyqgaitb8302 [place] [phone]. Nahed Yañez MYELOCYTE # Normal [facility] Comment on above: Performed By: #### C ROSARIO ####[facility] Oxdglucefx0007 [place] [phone]. Nahed Yañez MYELOCYTE % Normal [facility] Comment on above: Performed By: #### C ROSARIO ####[facility] Oopuhgqtgg[address] [place], [place] [address]Dr. Nahed Yañez NRBC Normal [facility] Comment on above: Performed By: #### C ROSARIO ####[facility] Nmucninfyj7923 [place], [place] [address]Km. Nahed Yañez PLT 302 103/ul Normal 150-450 [facility] Comment on above: Performed By: #### C ROSARIO ####[facility] Kaypqrdhci2602 [place], [place] [address]HcShaun Yañez RBC 3.79 106/ul Critically low 4.20-5.40 [facility] Comment on above: Performed By: #### C ROSARIO ####[facility] Nlfnjnipeq7139 [place], [place] [address]Hs. Nahed Yañez RDW 15.3 % Critically high 11.0-15.0 [facility] Comment on above: Performed By: #### C ROSARIO ####[facility] Asuoteyfsj2981 [place], [place] [address]Ka. Nahed Yañez SEG # 12.15 103/ul Critically high 1.40-6.50 [facility] Comment on above: Performed By: #### C ROSARIO ####[facility] Uxypbmnhad8170 [place], [place] [address]Wn. Nahed Yañez SEG % 75.0 % Normal 43.0-75.0 [facility] Comment on above: Performed By: #### C ROSARIO ####[facility] Cphhcxfhdg5922 [place], [place] [address]Sx. Nahed Yañez WBC 16.2 103/ul Critically high 4.0-11.0 [facility] Comment on above: Performed By: #### C ROSARIO ####[facility] Mbeeshxtoe6977 [place], [place] [address]NjShaun Nahed Yañez POINT OF CARE GLUCOSEon 08-12 Glucose [Mass/Vol] 221 mg/dL Critically high 74-106 [facility] Comment on above: Performed By: #### P OCGLUC ####[facility] Lannauvalz9422 [place], [place] [address]WrShaun Yañez PROF 14(COMP METB)on 023 Albumin [Mass/Vol] 2.2 g/dL Critically low 3.4-5.0 Th [facility] Comment on above: Performed By: #### C RENZO, JUDY ####[facility] Oeyhrfkqcg3606 [place] [address]Dr. Nahed Yañez Albumin/Globulin [Mass ratio] 0.6 {ratio} Normal [facility] Comment on above: Performed By: #### C RENZO, JUDY ####[facility] Nmjlendupl5111 [place] [address]Dr. Nahed Yañez ALP [Catalytic activity/Vol] 87 U/L Normal 46-116 [facility] Comment on above: Performed By: #### C RENZO, JUDY ####[facility] Eshsocprzx[address] [place], [place] [address]Dr. Nahed Yañez ALT [Catalytic activity/Vol] 17 U/L Normal 14-59 [facility] Comment on above: Performed By: #### C RENZO, JUDY ####[facility] Quuwzrgfor2652 [place] [address]Dr. Nahed Yañez Anion gap [Moles/Vol] 9.4 mmol/L Normal [facility] Comment on above: Performed By: #### C RENZO, JUDY ####[facility] Zsxkdikxmv[address] [place], [place] [address]Dr. Nahed Yañez AST [Catalytic activity/Vol] 13 U/L Critically low 15-37 [facility] Comment on above: Performed By: #### C RENZO, JUDY ####[facility] Nxbbsrjhgi7115 [place] [address]Dr. Nahed Yañez Bilirubin [Mass/Vol] 0.2 mg/dL Normal 0.2-1.0 [facility] Comment on above: Performed By: #### C RENZO, JUDY ####[facility] Fftpltxnwk2522 [place] [address]Dr. Nahed Yañez Calcium [Mass/Vol] 9.1 mg/dL Normal 8.5-10.1 [facility] Comment on above: Performed By: #### C RENZO, JUDY ####[facility] Xlxgjatiyr0386 [place] [address]Dr. Nahed Yañez Chloride [Moles/Vol] 103 mmol/L Normal 98-107 [facility] Comment on above: Performed By: #### C RENZO, JUDY ####[facility] Nchrfwairj9505 [place] [address]Dr. Nahed Yañez CO2 [Moles/Vol] 29.1 mmol/L Normal 21.0-32.0 The [facility] Comment on above: Performed By: #### C RENZO, JUDY ####[facility] Absecfyozs2023 [place] [address]Dr. Nahed Yañez Creatinine [Mass/Vol] 1.05 mg/dL Critically high 0.55-1.02 [facility] Comment on above: Performed By: #### C RENZO, JUDY ####[facility] Pnhpmuhomp3515 [place] [address]Dr. Nahed Yañez EGFR-AF VINCENTIAN >60 Normal >=60 [facility] Comment on above: Performed By: #### C RENZO, JUDY ####[facility] Jyvltyjozs9823 [place] [address]Dr. Nahed Yañez EGFR-NON AF VINCENTIAN 53 mL/min/1.73m2 Critically low >=60 [facility] Comment on above: Performed By: #### C RENZO, JUDY ####[facility] Teznzpvpgr8972 [place] [address]Dr. Nahed Yañez Globulin (S) [Mass/Vol] 3.5 g/dL Normal [facility] Comment on above: Performed By: #### C RENZO, JUDY ####[facility] Bwtqgpotpp6976 [place] [address]Dr. Nahed Yañez Glucose [Mass/Vol] 121 mg/dL Critically high 74-106 T [facility] Comment on above: Performed By: #### C RENZO, JUDY ####[facility] Mwadpvggck4730 [place] [address]Dr. Nahed Yañez Potassium [Moles/Vol] 4.5 mmol/L Normal 3.5-5.1 [facility] Comment on above: Performed By: #### C RENZO, JUDY ####[facility] Mpbgvimeox1152 [place] [address]Dr. Nahed Yañez Protein [Mass/Vol] 5.7 g/dL Critically low 6.4-8.2 Th [facility] Comment on above: Performed By: #### C MP, JUDY ####[facility] Rjwcibxetn7739 [place] [address]Dr. Nahed Yañez Sodium [Moles/Vol] 137 mmol/L Normal 136-145 [facility] Comment on above: Performed By: #### C RENZO, JUDY ####[facility] Qmgwrpedbj2602 [place] [address]Dr. Nahed Yañez Urea nitrogen [Mass/Vol] 24.0 mg/dL Critically high 7.0-18.0 [facility] Comment on above: Performed By: #### C ERNZO, JUDY ####[facility] Xdrtnveqzp[address] [place], [place] [address]Dr. Nahed Yañez Urea nitrogen/Creatinine [Mass ratio] 22.9 mg/mg Normal [facility] Comment on above: Performed By: #### C RENZO, JUDY ####[facility] Wminomsord[address] [place], [place] [address]Dr. Nahed Otilio THEOPHYLLINEon 08-24-2022 THEOPHYLLINE 18.2 ug/mL Normal 10.0-20.0 [facility] Comment on above: Performed By: #### C RENZO, JUDY ####[facility] Opebqsrjjc[address] [place], [place] [address]Dr. Nahed Otilio CBC W MANUAL DIFFon 08-24-19 23 ATYPICAL LYMPH # 0.20 103/ul Normal [facility] Comment on above: Performed By: #### C BCMAN ####[facility] Sdtxnizwkm4[address] [place], [place] [address]Dr. Nahed Otilio ATYPICAL LYMPH % 1 % Normal [facility] Comment on above: Performed By: #### C BCMAN ####[facility] Ikpqnaytkz9278 [place] [address]Dr. Nahed Yañez BAND # 0.0 103/ul Normal 0.0-0.3 [facility] Comment on above: Performed By: #### C BCISAIAH ####[facility] Jlghdmmcgn0717 [place] [phone]. Yiashley Yañez BAND % 0 % Normal 0-5 [facility] Comment on above: Performed By: #### C BCISAIAH ####[facility] Qxtbeqfwzn4344 [place] [phone]. Yiashley Yañez BASOM # 0.00 103/ul Normal 0.00-0.10 [facility] Comment on above: Performed By: #### C BCISAIAH ####[facility] Ceryswmymt8441 [place] [address]Dr. Yiashley Yañez BASOM % 0.0 % Critically low 0.2-2.0 [facility] Comment on above: Performed By: #### C ROSARIO ####[facility] Hngcbonyae9902 [place] [address]Dr. Yilan Yañez BLAST # Normal [facility] Comment on above: Performed By: #### C ROSARIO ####[facility] Nunhlunkim8393 [place] [address]Dr. Yilan Yañez BLAST % Normal [facility] Comment on above: Performed By: #### C ROSARIO ####[facility] Pwntrjmufh[address] [place], [place] [address]Dr. Nahed Yañez CORRECTED WBC Normal 4.0-11.0 [facility] Comment on above: Performed By: #### C BCISAIAH ####[facility] Kcbxbffvhd2783 [place] [address]Dr. Yiashley Yañez EOS # 0.00 103/ul Normal 0.00-0.70 [facility] Comment on above: Performed By: #### C BCISAIAH ####[facility] [address]pfvunjxvd[address] [place], [place] [address]Dr. Yiashley Yañez EOS% 0.0 % Critically low 0.9-7.0 [facility] Comment on above: Performed By: #### C BCISAIAH ####[facility] Yywrbvlvkh6116 [place] [address]Dr. Yilan Yañez HCT 33.5 % Critically low 36.0-48.0 [facility] Comment on above: Performed By: #### C ROSARIO ####[facility] Mmgvjtlcme4496 [place], [place] [address]Sd. Nahed Yañez HGB 10.7 g/dl Critically low 12.0-16.0 [facility] Comment on above: Performed By: #### C ROSARIO ####[facility] Jpasmnugwu3399 [place], [place] [address]Ch. Nahed Yañez LYMPHM # 1.39 103/ul Normal 1.20-3.80 [facility] Comment on above: Performed By: #### C ROSARIO ####[facility] Vcxwtmqizz6482 [place], [place] [address]Ze. Nahed Yañez LYMPHM% 7.0 % Critically low 20.5-60.0 [facility] Comment on above: Performed By: #### C ROSARIO ####[facility] Losbmvhxec2948 [place], [place] [address]Jd. Nahed Yañez MCH 28.5 pg Normal 26.7-34.0 [facility] Comment on above: Performed By: #### C ROSARIO ####[facility] Knqjawwwjk9263 [place], [place] [address]Zz. Nahed Yañez MCHC 31.9 g/dl Normal 29.9-35.2 [facility] Comment on above: Performed By: #### C ROSARIO ####[facility] Oaflyfghjq1628 [place], [place] [address]Hi. Nahed Yañez MCV 89.1 fL Normal 81.0-99.0 [facility] Comment on above: Performed By: #### C ROSARIO ####[facility] Epawclkyzr9542 [place], [place] [address]Mt. Nahed Yañez METAMYELOCYTE # Normal [facility] Comment on above: Performed By: #### C ROSARIO ####[facility] Gfaqecjkag6000 [place], [place] [address]Iu. Nahed Yañez METAMYELOCYTE % Normal [facility] Comment on above: Performed By: #### C ROSARIO ####[facility] Sjkqvelgyc8017 [place] [phone]. Nahed Yañez MONOM# 0.40 103/ul Normal 0.30-0.80 [facility] Comment on above: Performed By: #### C ROSARIO ####[facility] Pqdiinlisk0908 [place] [address]Dr. Nahed Yañez MONOM% 2.0 % Normal 1.7-12.0 [facility] Comment on above: Performed By: #### C ROSARIO ####[facility] Emnlcnxjdm9866 [place] [address]Dr. Nahed Yañez MPV 10.0 fL Normal 9.5-13.5 [facility] Comment on above: Performed By: #### C ROSARIO ####[facility] Nriczynddc[address] [place], [place] [address]Dr. Nahed Yañez MYELOCYTE # Normal [facility] Comment on above: Performed By: #### C ROSARIO ####[facility] Vkdvjwmrto79[address] [place], [place] [address]Dr. Nahed Yañez MYELOCYTE % Normal [facility] Comment on above: Performed By: #### C ROSARIO ####[facility] Hywacazsze80[address] [place], [place] [address]Dr. Nahed Yañez NRBC Normal [facility] Comment on above: Performed By: #### C ROSARIO ####[facility] Mwvzlxpekc9086 [place] [phone]. Nahed Yañez PLT 338 103/ul Normal 150-450 [facility] Comment on above: Performed By: #### C ROSARIO ####[facility] Cerphqrymb[address] [place], [place] [address]Dr. Nahed Yañez RBC 3.76 106/ul Critically low 4.20-5.40 [facility] Comment on above: Performed By: #### C ROSARIO ####[facility] Wuuleqjwzp025[address] [place], [place] [address]Dr. Nahed Yañez RDW 15.3 % Critically high 11.0-15.0 [facility] Comment on above: Performed By: #### C ROSARIO ####[facility] Xhurlqskzs9240 [place] [address]Dr. Nahed Yañez SEG # 17.91 103/ul Critically high 1.40-6.50 [facility] Comment on above: Performed By: #### C BCMAN ####[facility] Floybsxnuv8970 [place] [address]Dr. Nahed Yañez SEG % 90.0 % Critically high 43.0-75.0 [facility] Comment on above: Performed By: #### C BCMAN ####[facility] Rpbdewckpu0510 [place] [phone]. Nahed Otilio WBC 19.9 103/ul Critically high 4.0-11.0 [facility] Comment on above: Performed By: #### C BCMAN ####[facility] Rvfjpyjluf2340 [place] [address]Dr. Nahed Yañez POINT OF CARE GLUCOSEon 08-12 Glucose [Mass/Vol] 200 mg/dL Critically high 74-106 [facility] Comment on above: Performed By: #### P OCGLUC ####[facility] Kkutffzuns9736 [place] [address]Dr. Nahed Yañez Glucose [Mass/Vol] 131 mg/dL Critically high 74-106 [facility] Comment on above: Performed By: #### P OCGLUC ####[facility] Dwibxxhcgt9930 [place] [address]Dr. Nahed Otilio Glucose [Mass/Vol] 176 mg/dL Critically high 74-106 [facility] Comment on above: Performed By: #### P OCGLUC ####[facility] Ionunyufif8986 [place] [address]Dr. Nahed Yañez PROF 14(COMP METB)on 023 Albumin [Mass/Vol] 2.2 g/dL Critically low 3.4-5.0 [facility] Comment on above: Performed By: #### T RAFITA CMP ####[facility] Wzsfyxhalv2340 [place] [address]Dr. Nahed Yañez Albumin/Globulin [Mass ratio] 0.6 {ratio} Normal [facility] Comment on above: Performed By: #### Nydia ELLER, CMP ####[facility] Mwefyxwjfz9023 [place] [phone]. Nahed Yañez ALP [Catalytic activity/Vol] 101 U/L Normal 46-116 [facility] Comment on above: Performed By: #### Nydia ELLER, CMP ####[facility] Dplukwixag9979 [place] [phone]. Nahed Otilio ALT [Catalytic activity/Vol] 19 U/L Normal 14-59 [facility] Comment on above: Performed By: #### Nydia ELLER, CMP ####[facility] Mmxemircch1644 [place] [address]Dr. Rosemarieashley Otilio Anion gap [Moles/Vol] 12.0 mmol/L Normal [facility] Comment on above: Performed By: #### Nydia ELLER CMP ####[facility] Bijouzoiwi4501 [place] [address]Dr. Rosemarieashley Yañez AST [Catalytic activity/Vol] 14 U/L Critically low 15-37 [facility] Comment on above: Performed By: #### Nydia ELLER CMP ####[facility] Ehqhkknhoh6808 [place] [address]Dr. Nahed Otilio Bilirubin [Mass/Vol] 0.2 mg/dL Normal 0.2-1.0 [facility] Comment on above: Performed By: #### Nydia ELLER, CMP ####[facility] Aorhneqkub7562 [place] [address]Dr. Nahed Yañez Calcium [Mass/Vol] 9.5 mg/dL Normal 8.5-10.1 [facility] Comment on above: Performed By: #### Nydia ELLER, CMP ####[facility] Kolzsjmvcp9110 [place] [phone]. Nahed Yañez Chloride [Moles/Vol] 105 mmol/L Normal 98-107 [facility] Comment on above: Performed By: #### Nydia ELLER, CMP ####[facility] Godshbopcv7255 [place] [phone]. Nahed Yañez CO2 [Moles/Vol] 27.9 mmol/L Normal 21.0-32.0 [facility] Comment on above: Performed By: #### Nydia ELLER CMP ####[facility] Jdtyadfegm4076 [place] [address]Dr. Nahed Yañez Creatinine [Mass/Vol] 1.08 mg/dL Critically high 0.55-1.02 [facility] Comment on above: Performed By: #### Nydia ELLER CMP ####[facility] Evyjgkfhnm7825 [place] [address]Dr. Nahed Yañez EGFR-AF VINCENTIAN >60 Normal >=60 [facility] Comment on above: Performed By: #### Nydia ELLER CMP ####[facility] Jpklczsmag[address] [place], [place] [address]Dr. Nahed Yañez EGFR-NON AF VINCENTIAN 52 mL/min/1.73m2 Critically low >=60 [facility] Comment on above: Performed By: #### Nydia ELLER CMP ####[facility] Fnfyvjlzwt10[address] [place], [place] [address]Dr. Nahed Yañez Globulin (S) [Mass/Vol] 3.7 g/dL Normal [facility] Comment on above: Performed By: #### Nydia ELLER CMP ####[facility] Mymwmnxqia8[address] [place], [place] [address]Dr. Nahed Yañez Glucose [Mass/Vol] 182 mg/dL Critically high 74-106 [facility] Comment on above: Performed By: #### Nydia ELLER CMP ####[facility] Laegzsxqbq92[address] [place], [place] [address]Dr. Nahed Yañez Potassium [Moles/Vol] 3.9 mmol/L Normal 3.5-5.1 [facility] Comment on above: Performed By: #### Nydia ELLER CMP ####[facility] Fifjartzis[address] [place], [place] [address]Dr. Nahed Yañez Protein [Mass/Vol] 5.9 g/dL Critically low 6.4-8.2 [facility] Comment on above: Performed By: #### Nydia ELLER CMP ####[facility] Lhvsajaqsf[address] [place], [place] [address]Dr. Nahed Yañez Sodium [Moles/Vol] 141 mmol/L Normal 136-145 [facility] Comment on above: Performed By: #### Nydia ELLER, CMP ####[facility] Beezfpgnzz65[address] [place], [place] [address]Dr. Nahed Yañez Urea nitrogen [Mass/Vol] 20.0 mg/dL Critically high 7.0-18.0 [facility] Comment on above: Performed By: #### Nydia ELLER, CMP ####[facility] Ugoqpcwerj2[address] [place], [place] [address]Dr. Nahed Yañez Urea nitrogen/Creatinine [Mass ratio] 18.5 mg/mg Normal [facility] Comment on above: Performed By: #### Nydia ELLER CMP ####[facility] Inrbhwcxjl[address] [place], [place] [address]Dr. Nahed Yañez THEOPHYLLINEon 08-23-2022 THEOPHYLLINE 22.9 ug/mL Critically high 10.0-20.0 [facility] Comment on above: Performed By: #### Nydia ELLER CMP ####[facility] Eegpouvfak[address] [place], [place] [address]Dr. Nahed Yañez CBC AUTO DIFFon 08-22-2022 BASO # 0.0 103/ul Normal 0.0-0.1 [facility] Comment on above: Performed By: #### C BC ####[facility] Xitqfshocf[address] [place], [place] [address]Dr. Nahed Otilio Basophils/100 WBC (Bld) 0.1 % Critically low 0.2-2.0 [facility] Comment on above: Performed By: #### C BC ####[facility] Budgnwkvoe[address] [place], [place] [address]Dr. Nahed Otilio EO # 0.0 103/ul Normal 0.0-0.7 [facility] Comment on above: Performed By: #### C BC ####[facility] Nguqmvoawp90[address] [place], [place] [address]Dr. Nahed Otilio Eosinophils/100 WBC (Bld) 0.0 % Critically low 0.9-7.0 [facility] Comment on above: Performed By: #### C BC ####[facility] [address] [place] [address]Dr. Nahed Yañez Erythrocyte distribution width (RBC) [Ratio] 15.1 % Critically high 11.0-15.0 [facility] Comment on above: Performed By: #### C BC ####[facility] [address]zoiz[address] [place] [address]Dr. Nahed Yañez Hematocrit (Bld) [Volume fraction] 31.4 % Critically low 36.0-48.0 [facility] Comment on above: Performed By: #### C BC ####[facility] Iinsktfnzg0089[address] [place], [place] [address]Dr. Nahed Yañez Hemoglobin (Bld) [Mass/Vol] 10.2 g/dL Critically low 12.0-16.0 [facility] Comment on above: Performed By: #### C BC ####[facility] Bmcohlyhtc[address] [place], [place] [address]Dr. Nahed Yañez IG # 0.08 10e3/ul Critically high 0.00-0.03 [facility] Comment on above: Performed By: #### C BC ####[facility] Qsmzdafefm1724[address] [place], [place] [address]Dr. Nahed Yañez IG % 0.6 % Critically high 0.0-0.5 [facility] Comment on above: Performed By: #### C BC ####[facility] Tiekjoxdgq3237[address] [place], [place] [address]Dr. Nahed Yañez LYMPH # 0.9 103/ul Critically low 1.2-3.8 [facility] Comment on above: Performed By: #### C BC ####[facility] Llwibutsyy5447[address] [place], [place] [address]Dr. Nahed Yañez Lymphocytes/100 WBC (Bld) 6.1 % Critically low 20.5-60.0 [facility] Comment on above: Performed By: #### C BC ####[facility] Yzzpssiotk10[address] [place], [place] [address]Dr. Rosemarieashley Yañez MANUAL DIFF REQ NO Normal [facility] Comment on above: Performed By: #### C BC ####[facility] Cvgqiflqtr[address] [place] [phone]. Nahed Yañez MCH (RBC) [Entitic mass] 28.3 pg Normal 26.7-34.0 [facility] Comment on above: Performed By: #### C BC ####[facility] Zdxdwnsznr7[address] [place] [phone]. Nahed Yañez MCHC (RBC) [Mass/Vol] 32.5 g/dL Normal 29.9-35.2 [facility] Comment on above: Performed By: #### C BC ####[facility] Turylawliv[address] [place] [address]Dr. Nahed Otilio MCV (RBC) [Entitic vol] 87.0 fL Normal 81.0-99.0 [facility] Comment on above: Performed By: #### C BC ####[facility] Rondvciedx61[address] [place], [place] [address]Dr. Nahed Otilio MONO # 0.7 103/ul Normal 0.3-0.8 [facility] Comment on above: Performed By: #### C BC ####[facility] Zpvfoozupi7[address] [place], [place] [address]Dr. Nahed Otilio Monocytes/100 WBC (Bld) 5.1 % Normal 1.7-12.0 [facility] Comment on above: Performed By: #### C BC ####[facility] Mbxmzvkmyn25[address] [place] [address]Dr. Nahed Yañez NEUT # 12.2 103/ul Critically high 1.4-6.5 [facility] Comment on above: Performed By: #### C BC ####[facility] Ahrbqkzhyp7[address] [place], [place] [address]DrShaun Rosemarieashley Yañez Neutrophils/100 WBC (Bld) 88.1 % Critically high 43.0-75.0 [facility] Comment on above: Performed By: #### C BC ####[facility] Qqsrzbheam4915[address] [place], [place] [address]DrShaun Rosemarieashley Yañez Platelet mean volume (Bld) [Entitic vol] 10.2 fL Normal 9.5-13.5 [facility] Comment on above: Performed By: #### C BC ####[facility] Sprrrlcykx85[address] [place] [phone]. Nahed Yañez PLT 271 103/ul Normal 150-450 [facility] Comment on above: Performed By: #### C BC ####[facility] Woaipifdco22[address] [place] [phone]. Nahed Yañez RBC 3.61 106/ul Critically low 4.20-5.40 [facility] Comment on above: Performed By: #### C BC ####[facility] Eymppthrnh[address] [place] [phone]. Nahed Yañez WBC 13.9 103/ul Critically high 4.0-11.0 [facility] Comment on above: Performed By: #### C BC ####[facility] Yrzbkuspku[address] [place] [phone]. Nahed Yañez CULTURE URINEon 08-22-2022 CULTURE URINE Culture Observations : LIGHT GROWTH OF MIXED GENITAL MIGUEL. NO POTENTIAL PATHOGENS SEEN. Normal [facility] Comment on above: Performed By: #### U RCX ####[facility] Iwvqwaliyt[address] [place], [place] [address]Dr. Nahed Yañez POINT OF CARE GLUCOSEon 08-12 Glucose [Mass/Vol] 252 mg/dL Critically high 74-106 [facility] Comment on above: Performed By: #### P OCGLUC ####[facility] Shsupmzove[address] [place] [phone]. Nahed Yañez Glucose [Mass/Vol] 293 mg/dL Critically high 74-106 [facility] Comment on above: Performed By: #### P OCGLUC ####[facility] Yntzwagmij1532[address] [place], [place] [address]Dr. Nahed Yañez Glucose [Mass/Vol] 292 mg/dL Critically high 74-106 [facility] Comment on above: Performed By: #### P OCGLUC ####[facility] Ypjbjifxzr4[address] [place], [place] [address]DrShaun Yañez PROF 14(COMP METB)on 023 Albumin [Mass/Vol] 2.1 g/dL Critically low 3.4-5.0 [facility] Comment on above: Performed By: #### C MP ####[facility] Gwmbukqxbu[address] [place] [address]Dr. Nahed Yañez Albumin/Globulin [Mass ratio] 0.5 {ratio} Normal [facility] Comment on above: Performed By: #### C MP ####[facility] Pqjsnnettl[address] [place], [place] [address]Dr. Nahed Yañez ALP [Catalytic activity/Vol] 92 U/L Normal 46-116 [facility] Comment on above: Performed By: #### C MP ####[facility] Yyrivcaadc06[address] [place], [place] [address]Dr. Nahed Yañez ALT [Catalytic activity/Vol] 19 U/L Normal 14-59 [facility] Comment on above: Performed By: #### C MP ####[facility] Dcfwuvhkbl6177[address] [place], [place] [address]Dr. Nahed Yañez Anion gap [Moles/Vol] 15.9 mmol/L Normal [facility] Comment on above: Performed By: #### C MP ####[facility] Wgetrxnxyr2519[address] [place], [place] [address]Dr. Nahed Yañez AST [Catalytic activity/Vol] 8 U/L Critically low 15-37 [facility] Comment on above: Performed By: #### C MP ####[facility] Pbhinkxquy5[address] [place], [place] [address]Dr. Nahed Yañez Bilirubin [Mass/Vol] 0.3 mg/dL Normal 0.2-1.0 [facility] Comment on above: Performed By: #### C MP ####[facility] Iyzrpyucmm4467[address] [place], [place] [address]Dr. Nahed Yañez Calcium [Mass/Vol] 9.4 mg/dL Normal 8.5-10.1 [facility] Comment on above: Performed By: #### C MP ####[facility] Yvvkbefriq8[address] [place], [place] [address]Dr. Nahed Yañez Chloride [Moles/Vol] 101 mmol/L Normal 98-107 [facility] Comment on above: Performed By: #### C MP ####[facility] B[address]wtubcvq[address] [place] [address]Dr. Nahed Otilio CO2 [Moles/Vol] 22.5 mmol/L Normal 21.0-32.0 [facility] Comment on above: Performed By: #### C MP ####[facility] Ygyjgwyipe[address] [place], [place] [address]Dr. Nahed Otilio Creatinine [Mass/Vol] 1.16 mg/dL Critically high 0.55-1.02 [facility] Comment on above: Performed By: #### C MP ####[facility] Iyugrcznof[address] [place], [place] [address]Dr. Nahed Yañez EGFR-AF VINCENTIAN 58 mL/min/1.73m2 Critically low >=60 [facility] Comment on above: Performed By: #### C MP ####[facility] Cklkiybsjq1679[address] [place], [place] [address]Dr. Nahed Otilio EGFR-NON AF VINCENTIAN 47 mL/min/1.73m2 Critically low >=60 [facility] Comment on above: Performed By: #### C MP ####[facility] Jdvkyaaxxu8782[address] [place], [place] [address]Dr. Nahed Yañez Globulin (S) [Mass/Vol] 4.2 g/dL Normal [facility] Comment on above: Performed By: #### C MP ####[facility] Kvlgmotexn[address] [place], [place] [address]Dr. Nahed Yañez Glucose [Mass/Vol] 409 mg/dL Critically high 74-106 [facility] Comment on above: Performed By: #### C MP ####[facility] Tgfczvthzd7179[address] [place], [place] [address]Dr. Nahed Yañez Potassium [Moles/Vol] 3.4 mmol/L Critically low 3.5-5.1 [facility] Comment on above: Performed By: #### C MP ####[facility] Tuvpzsolhv3940[address] [place], [place] [address]Dr. Nahed Yañez Protein [Mass/Vol] 6.3 g/dL Critically low 6.4-8.2 Th e [facility] Comment on above: Performed By: #### C MP ####[facility] Tllnngupse8155[address] [place], [place] [address]Dr. Nahed Yañez Sodium [Moles/Vol] 136 mmol/L Normal 136-145 [facility] Comment on above: Performed By: #### C MP ####[facility] Mxroxkufem7526[address] [place], [place] [address]Dr. Nahed Yañez Urea nitrogen [Mass/Vol] 16.0 mg/dL Normal 7.0-18.0 [facility] Comment on above: Performed By: #### C MP ####[facility] Yhbtauosmj6550[address] [place], [place] [address]Dr. Nahed Yañez Urea nitrogen/Creatinine [Mass ratio] 13.8 mg/mg Normal [facility] Comment on above: Performed By: #### C MP ####[facility] Jdwbyqcngc[address] [place], [place] [address]Dr. Nahed Yañez THEOPHYLLINEon 08-22-2022 THEOPHYLLINE 13.4 ug/mL Normal 10.0-20.0 [facility] Comment on above: Performed By: #### T RAFITA ####[facility] Qosejlzrrj3648[address] [place], [place] [address]Dr. Nahed Yañez UA RANDOM W/MICROSCOPICon BACTERIA NONE SEEN Normal NONE SEEN [facility] Comment on above: Performed By: #### U AMIC ####[facility] Vlpksqslwi[address]18[address] [place], [place] [address]Dr. Nahed Yañez Bilirubin Ql (U) Negative Normal NEGATIVE [facility] Comment on above: Performed By: #### U AMIC ####[facility] Rvzqpbabjj4[address] [place], [place] [address]Dr. Nahed Yañez CAST NONE SEEN Normal NONE SEEN [facility] Comment on above: Performed By: #### U AMIC ####[facility] Asjxbqwkpd4775[address] [place], [place] [address]Dr. Nahed Yañez Clarity (U) CLEAR Normal CLEAR [facility] Comment on above: Performed By: #### U AMIC ####[facility] Y[address]fnisnt[address] [place] [address]Dr. Nahed Yañez Color (U) LT. YELLOW Normal YELLOW [facility] Comment on above: Performed By: #### U AMIC ####[facility] Ljdhliaxxj55[address] [place] [phone]. Nahed Yañez Crystals LM Nom (Urine sed) NONE SEEN Normal NONE SEEN [facility] Comment on above: Performed By: #### U AMIC ####[facility] Wotqykucmx9[address] [place] [address]Dr. Nahed Yañez Epithelial cells LM Ql (Urine sed) RARE Normal NONE SEEN /RARE [facility] Comment on above: Performed By: #### U AMIC ####[facility] Vuuhptzpkn[address] [place] [address]Dr. Nahed Yañez Glucose Ql (U) 100 mg/dl Abnormal NEGATIVE [facility] Comment on above: Performed By: #### U AMIC ####[facility] Yxeyvpsyrq04[address] [place], [place] [address]Dr. Yiashley Yañez Hemoglobin Ql (U) Negative Normal NEGATIVE The [facility] Comment on above: Performed By: #### U AMIC ####[facility] Uxycvvudhg5978[address] [place], [place] [address]Dr. Yiashley Yañez Ketones Ql (U) Negative Normal NEGATIVE [facility] Comment on above: Performed By: #### U AMIC ####[facility] Iznehmgnzg9901[address] [place], [place] [address]Dr. Yilan Yañez LEUKOCYTES Negative Normal NEGATIVE [facility] Comment on above: Performed By: #### U AMIC ####[facility] Yrrebcspno[address] [place] [address]Dr. Yilan Yañez MUCOUS NONE SEEN Normal NONE SEEN [facility] Comment on above: Performed By: #### U AMIC ####[facility] Qbvuplkqvd0225 [place] [address]Dr. Yilan Yañez Nitrite Ql (U) Negative Normal NEGATIVE [facility] Comment on above: Performed By: #### U AMIC ####[facility] Ubuglyyrfd6718 [place] [address]Dr. Nahed Yañez pH (U) 5.5 [pH] Normal 5-9 [facility] Comment on above: Performed By: #### U AMIC ####[facility] Iaahwnosfk40[address] [place] [address]Dr. Nahed Yañez RBC NONE SEEN Abnormal 0-2 [facility] Comment on above: Performed By: #### U AMIC ####[facility] Yrdstnrwip4[address] [place] [address]Dr. Nahed Yañez SPEC GRAVITY 1.020 Normal 1.005-<=1.02 5 [facility] Comment on above: Performed By: #### U AMIC ####[facility] Kyahedorzl[address] [place], [place] [address]Dr. Nahed Yañez UA PROTEIN Negative Normal NEGATIVE/ TRACE [facility] Comment on above: Performed By: #### U AMIC ####[facility] Cdceispfbw1024[address] [place], [place] [address]Dr. Nahed Yañez Urobilinogen Qn (U) 0.2 {Alem'U}/dL Normal 0.2 - 1. 0 [facility] Comment on above: Performed By: #### U AMIC ####[facility] Znrqawrjqk7098[address] [place], [place] [address]Dr. Nahed Yañez WBC NONE SEEN Normal NONE SEEN [facility] Comment on above: Performed By: #### U AMIC ####[facility] Nfcqhhgown[address] [place], [place] [address]Dr. Nahed Yañez BLOOD GASES BTYon 08-21-2022 02 MODE ROOM AIR Normal [facility] Comment on above: Performed By: #### A BG ####[facility] Ksuzcnpgvb[address] [place], [place] [address]Dr. Nahed Yañez ALLENS TEST Positive Normal [facility] Comment on above: Performed By: #### A BG ####[facility] Azyfbchgat[address] [place], [place] [address]Dr. Nahed Yañez Base excess Calc (Bld) [Moles/Vol] 3.2 mmol/L Critically high -2.0-2.0 [facility] Comment on above: Performed By: #### A BG ####[facility] Rf[address]ngsdtoe[address] [place] [address]Dr. Nahed Yañez BIPAP PRESSURE Normal [facility] Comment on above: Performed By: #### A BG ####[facility] Nlkzzvtqmu25[address] [place] [address]Dr. Nahed Yañez CPAP Normal [facility] Comment on above: Performed By: #### A BG ####[facility] Mydusxqlvg[address] [place], [place] [address]Dr. Nahed Yañez FIO[address] [facility] Comment on above: Performed By: #### A BG ####[facility] Rsijmdckoh8264[address] [place], [place] [address]Dr. Nahed Yañez HCO3 (Bld) [Moles/Vol] 26.8 mmol/L Critically high 22.0-26 .0 [facility] Comment on above: Performed By: #### A BG ####[facility] Fwzltbugns9194[address] [place], [place] [address]Dr. Nahed Yañez LPM Normal [facility] Comment on above: Performed By: #### A BG ####[facility] Nrnpexglcm18[address] [place], [place] [address]Dr. Nahed Yañez MINUTE VOLUME Normal [facility] Comment on above: Performed By: #### A BG ####[facility] Fbbctqucxq719[address] [place], [place] [address]Dr. Nahed Yañez Oxygen (Bld) [Partial pressure] 55.1 mm[Hg] Critically low 80.0-100.0 [facility] Comment on above: Performed By: #### A BG ####[facility] Kearunwqow0036[address] [place], [place] [address]Dr. Nahed Yañez Oxygen saturation in Blood 90.2 % Critically low 95.0-100.0 [facility] Comment on above: Performed By: #### A BG ####[facility] Zmytvrizpc[address] [place], [place] [address]Dr. Nahed Yañez PCO2 36.7 mmHg Normal 35.0-45.0 [facility] Comment on above: Performed By: #### A BG ####[facility] Lixueizazj[address] [place] [address]Dr. Nahed Yañez PEEP [facility] Comment on above: Performed By: #### A BG ####[facility] Caguxfevuj[address] [place] [address]Dr. Nahed Yañez pH (Bld) 7.472 [pH] Critically high 7.350-7.450 [facility] Comment on above: Performed By: #### A BG ####[facility] Zvjgplxrhk[address] [place] [address]Dr. Nahed Yañez PIP [facility] Comment on above: Performed By: #### A BG ####[facility] Pxkloxjlxc[address] [place], [place] [address]Dr. Nahed Yañez PS [facility] Comment on above: Performed By: #### A BG ####[facility] Ublwnrlkol23[address] [place], [place] [address]Dr. Nahed Yañez PUNCTURE SITE LR Normal [facility] Comment on above: Performed By: #### A BG ####[facility] Xokwpvflez4[address] [place], [place] [address]Dr. Nahed Yañez RATE [facility] Comment on above: Performed By: #### A BG ####[facility] Boucfavyic14[address] [place], [place] [address]Dr. Nahed Yañez VENT MODE [facility] Comment on above: Performed By: #### A BG ####[facility] Rtbanpabfi[address] [place] [address]Dr. Nahed Yañez VT [facility] Comment on above: Performed By: #### A BG ####[facility] Cjvtpkzdej9[address] [place], [place] [address]Dr. Nahed Yañez BNPon 08-21-2022 Natriuretic peptide B (Bld) [Mass/Vol] 131.0 pg/mL Normal <=900.0 [facility] Comment on above: Performed By: #### B CLIENT PROGRAM MANAGER ####[facility] Jfezxebedl[address] [place] [phone]. Nahed Yañez CARDIAC FRANCISCO 3-6on 3 CK [Catalytic activity/Vol] 17 U/L Critically low 26-192 [facility] Comment on above: Performed By: #### C MREP ####[facility] Eojwfzcbqe13[address] [place] [phone]. Nahed Yañez CK.MB [Mass/Vol] ng/mL Normal <=3.60 [facility] Comment on above: Performed By: #### C MREP ####[facility] Matujzuuey[address] [place], [place] [address]Dr. Nahed Yañez HSTROP 25.1 pg/mL Normal 4.0-51.3 [facility] Comment on above: Result Comment: CUT- OFF POINTS HAVE BEEN ESTABLISHED BASED ON THE FOURTH UNIVERSAL DEFINITIONS OF MYOCARDIALINFARCTION. THE UPPER REFERENCE LIMIT (URL) OF TROPONIN, DEFINED THE 99TH PERCENTILE OFcTnI DISTRIBUTION IN A REFERENCE POPULATION, HAS BEEN CONFIRMED THE DECISION THRESHOLDFOR [place] DIAGNOSIS. Performed By: #### C MREP ####[facility] Kigretcjaj[address] [place], [place] [address]Dr. Nahed Yañez CARDIAC FRANCISCO ADMITon 023 CK [Catalytic activity/Vol] 39 U/L Normal 26-192 [facility] Comment on above: Performed By: #### ERICK Ordonez MP ####[facility] Evserjkgwb1852 [place] [phone]. Nahed Yañez CK.MB [Mass/Vol] ng/mL Normal <=3.60 [facility] Comment on above: Performed By: #### B RENZO, CMADM ####[facility] Fwzytstrjd8[address] [place] [phone]. Nahed Yañez HSTROP 24.4 pg/mL Normal 4.0-51.3 [facility] Comment on above: Result Comment: CUT- OFF POINTS HAVE BEEN ESTABLISHED BASED ON THE FOURTH UNIVERSAL DEFINITIONS OF MYOCARDIALINFARCTION. THE UPPER REFERENCE LIMIT (URL) OF TROPONIN, DEFINED THE 99TH PERCENTILE OFcTnI DISTRIBUTION IN A REFERENCE POPULATION, HAS BEEN CONFIRMED THE DECISION THRESHOLDFOR [place] DIAGNOSIS. Performed By: #### B RENZO CMADM ####[facility] Wbvhcqmeaf3408 [place] [phone]. Nahed Otilio ANDRE 48 ng/mL Normal 9-82 [facility] Comment on above: Performed By: #### B ERICK MULLER ####[facility] Hmddnxerpm9760 [place] [phone]. Nahed Yañez CBC AUTO DIFFon 08-21-2022 BASO # 0.0 103/ul Normal 0.0-0.1 [facility] Comment on above: Performed By: #### C BC ####[facility] Z[address]qmyfldzf[address] [place], [place] [address]Dr. Nahed Yañez Basophils/100 WBC (Bld) 0.2 % Normal 0.2-2.0 [facility] Comment on above: Performed By: #### C BC ####[facility] Kkyvhnlilr[address] [place], [place] [address]Dr. Nahed Yañez EO # 0.3 103/ul Normal 0.0-0.7 [facility] Comment on above: Performed By: #### C BC ####[facility] Oqqggartah[address] [place], [place] [address]Dr. Nahed Yañez Eosinophils/100 WBC (Bld) 1.5 % Normal 0.9-7.0 [facility] Comment on above: Performed By: #### C BC ####[facility] Keplmysnff86[address] [place], [place] [address]Dr. Nahed Yañez Erythrocyte distribution width (RBC) [Ratio] 15.0 % Normal 11.0-15.0 [facility] Comment on above: Performed By: #### C BC ####[facility] Wiqqnvswen[address] [place], [place] [address]Dr. Nahed Yañez Hematocrit (Bld) [Volume fraction] 41.4 % Normal 36.0-48.0 [facility] Comment on above: Performed By: #### C BC ####[facility] Heyscpiplj[address] [place], [place] [address]Dr. Nahed Yañez Hemoglobin (Bld) [Mass/Vol] 13.5 g/dL Normal 12.0-16.0 [facility] Comment on above: Performed By: #### C BC ####[facility] Jrcnpmirwa2204 [place] [phone]. Nahed Yañez IG # 0.18 10e3/ul Critically high 0.00-0.03 [facility] Comment on above: Performed By: #### C BC ####[facility] Qmjjhfuwfy7441 [place] [phone]. Nahed Yañez IG % 1.0 % Critically high 0.0-0.5 [facility] Comment on above: Performed By: #### C BC ####[facility] [address]lebjnhjvx[address] [place] [address]Dr. Nahed Yañez LYMPH # 2.5 103/ul Normal 1.2-3.8 [facility] Comment on above: Performed By: #### C BC ####[facility] [address] [place] [address]Dr. Nahed Yañez Lymphocytes/100 WBC (Bld) 14.0 % Critically low 20.5-60.0 [facility] Comment on above: Performed By: #### C BC ####[facility] [address] [place] [id number] Yañez MANUAL DIFF REQ NO Normal [facility] Comment on above: Performed By: #### C BC ####[facility] [address] [place] [id number]. Nahed Yañez MCH (RBC) [Entitic mass] 28.5 pg Normal 26.7-34.0 [facility] Comment on above: Performed By: #### C BC ####[facility] [address]unm[address] [place] [phone]. Rosemarieashley Yañez MCHC (RBC) [Mass/Vol] 32.6 g/dL Normal 29.9-35.2 [facility] Comment on above: Performed By: #### C BC ####[facility] [address]uyn[address] [place] [phone]. Nahed Yañez MCV (RBC) [Entitic vol] 87.3 fL Normal 81.0-99.0 [facility] Comment on above: Performed By: #### C BC ####[facility] [address] [place] [id number]. Nahed Yañez MONO # 1.2 103/ul Critically high 0.3-0.8 [facility] Comment on above: Performed By: #### C BC ####[facility] [address] [place] [phone]. Nahed Yañez Monocytes/100 WBC (Bld) 6.8 % Normal 1.7-12.0 [facility] Comment on above: Performed By: #### C BC ####[facility] [address]ils[address] [place] [phone]. Nahed Yañez NEUT # 13.8 103/ul Critically high 1.4-6.5 [facility] Comment on above: Performed By: #### C BC ####[facility] [address]fr[address] [place] [address]Dr. Nahed Yañez Neutrophils/100 WBC (Bld) 76.5 % Critically high 43.0-75.0 [facility] Comment on above: Performed By: #### C BC ####[facility] X[address]sh[address] [place] [address]Dr. Nahed Yañez Platelet mean volume (Bld) [Entitic vol] 10.5 fL Normal 9.5-13.5 [facility] Comment on above: Performed By: #### C BC ####[facility] [address]rrg[address] [place] [phone]. Nahed Yañez PLT 319 103/ul Normal 150-450 [facility] Comment on above: Performed By: #### C BC ####[facility] [address] [place], [place] [id number]. Nahed Yañez RBC 4.74 106/ul Normal 4.20-5.40 [facility] Comment on above: Performed By: #### C BC ####[facility] [address]xy[address] [place] [phone]. Nahed Yañez WBC 18.0 103/ul Critically high 4.0-11.0 [facility] Comment on above: Performed By: #### C BC ####[facility] [address] [place] [phone]. Nahed Yañez CULTURE BLOODon 08-21-2022 Microscopic examination of blood, culture Culture Observations: NO GROWTH AT [address] [facility] Comment on above: Performed By: #### B LDCX2 ####[facility] [address]redf[address] [place] [phone]. Nahed Yañez Microscopic examination of blood, culture Culture Observations: NO GROWTH AT [address] [facility] Comment on above: Performed By: #### B LDCX1 ####[facility] [address] [place] [phone]. Nahed Yañez [facility] 08-12 SARS-CoV-2 (COVID-19) RNA MIRNA+probe Ql (Unsp spec) Not detected Normal NOT DETECTED [facility] Comment on above: Result Comment: When [...] for this test is supported by the [place] of [employer] and Human Service's declaration that [...] be used). Performed By: #### C VDTBH ####[facility] [address]rgwhq[address] [place] [phone]. Nahed Yañez LACTATE/LACTIC ACIDon 2022 Lactate [Moles/Vol] 1.1 mmol/L Normal 0.4-2.0 [facility] Comment on above: Performed By: #### L ACT ####[facility] Gemgtvfpmt[address] [place] [address]Dr. Nahed Yañez Lactate [Moles/Vol] 2.4 mmol/L Critically high 0.4-2.0 [facility] Comment on above: Performed By: #### L ACT ####[facility] [address] [place] [address]Dr. Nahed Yañez POINT OF CARE GLUCOSEon 08-12 Glucose [Mass/Vol] 453 mg/dL Critically high 74-106 [facility] Comment on above: Performed By: #### P OCGLUC ####[facility] [address] [place], [place] [address]Dr. Nahed Yañez Glucose [Mass/Vol] 358 mg/dL Critically high 74-106 [facility] Comment on above: Performed By: #### P OCGLUC ####[facility] [address] [place], [place] [address]Dr. Nahed Yañez Glucose [Mass/Vol] 98 mg/dL Normal 74-106 [facility] Comment on above: Performed By: #### P OCGLUC ####[facility] N[address] [place], [place] [address]Dr. Nahed Yañez PROF CHEM 8 (BAS METB)on Anion gap [Moles/Vol] 14.7 mmol/L Normal [facility] Comment on above: Performed By: #### B MP, CMADM ####[facility] [address] [place], [place] [address]Dr. Naehd Yañez Calcium [Mass/Vol] 9.6 mg/dL Normal 8.5-10.1 [facility] Comment on above: Performed By: #### B MP, CMADM ####[facility] [address]ym[address] [place], [place] [address]Dr. Nahed Yañez Chloride [Moles/Vol] 95 mmol/L Critically low 98-107 [facility] Comment on above: Performed By: #### B MP, CMADM ####[facility] Rxhtecbij[address] [place], [place] [address]Dr. Nahed Yañez CO2 [Moles/Vol] 25.2 mmol/L Normal 21.0-32.0 [facility] Comment on above: Performed By: #### ERICK Ordonez MP ####[facility] [address]mz[address] [place] [address]Dr. Nahed Yañez Creatinine [Mass/Vol] 1.15 mg/dL Critically high 0.55-1.02 [facility] Comment on above: Performed By: #### ERICK Ordonez MP ####[facility] [address] [place], [place] [address]Dr. Nahed Yañez EGFR-AF VINCENTIAN 58 mL/min/1.73m2 Critically low >=60 [facility] Comment on above: Performed By: #### ERICK Ordonez MP ####[facility] [address] [place], [place] [address]Dr. Nahed Yañez EGFR-NON AF VINCENTIAN 48 mL/min/1.73m2 Critically low >=60 [facility] Comment on above: Performed By: #### ERICK Ordonez MP ####[facility] [address] [place], [place] [address]Dr. Nahed Yañez Glucose [Mass/Vol] 191 mg/dL Critically high 74-106 T [facility] Comment on above: Performed By: #### ERICK Ordonez MP ####[facility] [address] [place], [place] [address]Dr. Nahed Yañez Potassium [Moles/Vol] 3.9 mmol/L Normal 3.5-5.1 [facility] Comment on above: Performed By: #### ERICK Ordonez MP ####[facility] [address] [place], [place] [address]Dr. Nahed Yañez Sodium [Moles/Vol] 131 mmol/L Critically low 136-145 [facility] Comment on above: Performed By: #### ERICK Ordonez MP ####[facility] [address] [place], [place] [address]Dr. Rosemarieashley Yañez Urea nitrogen [Mass/Vol] 15.0 mg/dL Normal 7.0-18.0 [facility] Comment on above: Performed By: #### ERICK Ordonez MP ####[facility] [address] [place], [place] [address]Wt. Nahed Yañez Urea nitrogen/Creatinine [Mass ratio] 13.0 mg/mg Normal [facility] Comment on above: Performed By: #### B RENZO, CMADM ####[facility] [address] [place], [place] [address]Kh. Nahed Yañez XR CHEST 2 Von 08-21-2022 XR CHEST 2 V Normal [facility] Coding Summary.on 08-11-2022 Coding Summary. CD:[id number] W w+PGhlYWQ+KG5ODQJcY01 ubJNpiJ5kC4PPNMmFAdwz VSUBPJyEFoWtcrCdWW1hn XNjZXJu IC8+NM7hMOOkDdkiiPVpu 2N9zDT0Z14sgb0aWDvksO Q1EZCcPjMvomezs5bdnQr 6IDcuNmluOyBt ETNsnJ17USO8iR21Fi88t HEqxERzy8exbWz8AzHwRA QbPSF5qWquBZbwa9NjJOC wO34amPNap2J9 HRJlcCxkxWUpEmScxJR1w V7rDAivoghkp2kdhkahSy d4gx83jEEnb1R5cKU9U0W odsK1HUCjcBCz JqpdsEALdX5qhjumq7vxm vclXbDzSPEsAMw9HTx7BE HzaLzbIfKbMN59DQI6RDL xllUtC6SvSIRa lXskGjO7o3K6Dy0UD3SYF lluU5UTGMZYFOsjrGJ+PC 69cn58I4KkDjfnWkj9TQE gUNR1rOM3mJ2u GIQbZLhda4E9cQZ9F3Bvp pTcdx6dk1taIXUuHDhdM5 6vmOKlv5E3WMVclXW6GGV rsMnnBsToaD13 Oyc+RDZayEjop2AoQlwrf 8hda4tgcKi9JudnXWLmqp MspDflPTG5r8LqKn9cLMN vqWN0mMT3iN0x PkIcBlG6WUyhB864SeDtr MKfWagvA28rV7DcrXE+PH XzDlg6ZYDxyEfeDB3yE4T hZGRpbmctbGVm dHeaAQ4qXSQtkrleHALuu T1mXACcD9i1VyEoPuO0ZY txX1WxBUHzpzszUv58cT2 gRrLzFbL8PTkt K5QmeaF6EOYjpTUkWPgyH RT5W43io6N9SJAuPLUpYW Y9pXR3rT4tsPrkysjozQN mdDsgdmVydGlj BDlzVBhlM166QCGrxAvxM kNvZGluZyBEYXRlOiAgMD MvMzEvMjAyMzwvdGQ+PHR iMJV0aRagOBNl tRHuUFwsMt9lfRtxkFaxW H8iMZSpotvpYTVrlK4rHK DzrWJwzSalJW7iZYFkoxx oe733CgRrVLN8 QTVlyVWfH6RofY7wNlUnH GQnBRYxD4ZvhNOyMIirH4 04NAvsFtI1HGQffnBiB3V sLWFsaWduOiB0 r2U7Ir0Jf4QekkvhJ2Noa QPuYjFwLnnzQFu1X5DjRj wvdHI+MJ52DCLdPY45VZh 9GPW4eSezQVcc MYMhB0YnsO4oZpBiNJCsE GRkOyc+PHRhYmxlIHdpZH RoPScxMDAlJyBzdHlsZT0 fYj8pJJDwMYLm dIhthIFcJtGtm4twWEYkM OlqGW9avQxlX3FykFS5TO Pdj3t9Fm38P90kE1RgqVC +LLDwbOJ6lMQ9 yW7rUpYdZtG5YGngW036D jFjiWSgZzezf2cjz4oemS o3BoP1APXhoxZxvEuzRJW 1v6TgOu59P02f IHdpZHRoPSIxNSUiIHZhb Btcba0bpN2iTn1+PGNvbC O2yFV3eS9nWyQsExI8GUd yV481PdBmxYHv Wqfjv2vaz9xsfJg8YgAhT GExppExvIumOLP5g9AqEy 03C5VwhCzbv8WfWqj8xq4 3nRJly7P1uVO3 M0LeMWQzrambkWLjhWqoD N3sENRdtbhhBYRfjC9vVZ QjT4t6JmCtChH2CRbjT6N huhA6CSKlnJGd NYWocIWRrN2twquso9gtm wiyTyJxPXDoRMl2SOp5TD PrgVanLlFaYKX6PaU8PXZ 1pGZmjT6ulPtb uvftfS7kNgn+XNT3mRWjw WQQGJ3jTdjryUW+PHRkIH X4qWyfPGsbBGTrbC8aFKI aC5c9PpKeAqB7 LQyoB0SalbT6HCMwcHGzE KSigIAOxC3xvtsuw5qzmn llZcUyLDSgIYd0XHa5HKH saWduOiBsZWZ0 EcK2KJD3cEPweV2wjMivl zzzgL5qZaa+QmlydGggRG K4GFp7Q4MrOvn9OTHpxNa nJO6dcZBzVGwk Il0kbKipdFpiBC6zKQBzf bkow546YuGzl2asYKBwvL SoFGelHLJ3P63oa6T3VKC rTMYkKSC2eVV6 hM4huXjjnmjwiYRivGlrv rNvrCgdEZbjBGtpE499NF LdmEuqZjVsVDd6P9BlOnb 5FNXutDgwXQ0r iOYsWPpqBf3efYygdOviA F3pIQUjvbymq224ZiQrg5 yhFYDuvEXiILyiPDU5J75 rv6N1ATExPRXl NXA7eCQ2nE5moIpatkkoz GVmdDsgdmVydGljYWwtYW ebI828NQLajHcsXaRloTw 6Y7NeLwy0XIUi dJamTG9zmTRrELfiUt6er HwaxAffPD1bELLywuzdb4 09JjEbb1rcGUEweHScEAx fHCH3V65qp7W6 KJNkVHEvSSU5sGQ0sN3az GlnbjogbGVmdDsgdmVydG vpOVefBMpiT558XOKvhPc nPlBhdGllbnQg WWtxICw7S5JnBgrytER+P C87AGTnKA90sXEnlGZjo2 cdiDz9HtHeOAKkONB1vBf eBXuwx1OiTYTu V66sbZOhy6H6PRJbpLfsh ZWfRzHffZL7nJ0zEOzlbo cbs2ocuumkEpfbb4mgvg5 2kA71K96aNWpn ZHRoPSIzMCUiIHZhbGlnb i5woU9tEg7+RCPbsDP3dP M5fY3nYYGaFtG3AOylB09 9InRvcCIvPjxj g5qfl0dyyZe5XsF3BVXko cGjqUyhZEB3y1YdMv11M9 9sIHdpZHRoPSIyMCUiIHZ ynBeyut4vgP6t Ii8+APFpjLP6qGQ1xC5oH dLpFrE9DEdgD762WmUbsU IhPdqoK14iU5BwkQM+PHR cPdg5RJZdkKvl FX3qjLBzNZtpPr7bBUL0Q oDyNaThAPlbH3ExNEIhtp cwzvzcsHZ4GJSrZTVtsH2 1Jf8jxRyhSQOh pNLLwU2nvnjrb8gjmpxoO zFlLBNtECh4OSr0OABbuB vyVfAzBQF6DcH9VPC0uUJ cbF4ajPqtxjso tZ8xA7EpTSQnfmqcJv08r M9wNuAlVhC9AZeeUcq+TU DFCY8TUWFTNXLROEL7M0H cEye6WYYvtEjk RO6ucTKrFPzmCt0toSabg WrlXO8sMKBvearyOTOfmO 0cJQNekUXrcPlgNX9gWLX sfndhz970IiRt WTY4KMZmfJYpA1AbuL4iJ vYlFQBmNTEfW2TamWQzJD psU187WZfbVyA9GQSaeiL nD0YjMZLmmBht OiO5o5W3Qc3wFD6cJC8wR RRxHZ26HE37uFYlw8Y7vN X4J0QaRPXhjbhqfymkiLB 8UBWmBBYvhK83 vFNeDLshTn9is0B7l397W JPlIAYdqT83Gv6rqBcnSQ DnmOKGyM8dtwhjt4egsfi gIzAwMDAwMDt0 NKp6LTEguElmQsBuQKW9W oE9PGH1qURlrK9ssYiwif gwdP7pEii+NjEgWWVhcnM 9L9OqNdf1TPJi bRjsJN4uwDJrTAgcIw7bo JtxxOdeAZ9fCWTxjozbWG JjoN2xFEJxgVEvlJidWL0 mUVNbxwcee504 FgRaFPR2XFKyeZEuH2Brn V5bBsRvOWEwUMGoX3KfqU MsELaqV023PJrkTtP4WKB nbhSrM7GpHLQb qBazYrJ9h6S3Bc3ZII0qm YI9Y4TfIyo7YKPmtPwxNF 9oeWWmNRguVl0qdEpbuUm lWE7kEDQuyyew PQVhfP8fKXJamMYmuEieJ O6gKWMudazbj228LlCgFE G7UURksNQxR2FzaQ1rTaK xPDQyDWSlQ7Fh yVTsXSbjL745OPufWlO0X VAhbzEiI0NjAWOldJzhCp U4i7S8Uc8OoZCnN6AhX1p 6X4DqQqjbfAE+ JE90ANHvBD75oDVriICln 6qqpAa8MnCwQDNcGBM6tQ naXYqes2KzKKCrC27bjVU ou3J9EMJxqPrl nYRxXrCmbVQ4mS1eYQysw vist8wjvahwLwfis4qwnw 76lB36Q95pCMehTQAqQJH zMCUiIHZhbGln jq4llZ6sAp7+MOVwyXS8y MP7iX9kIuIoWeS4HNrjX1 11DlSvvHKvTwbrf2fif0i ffZc3OrRkEUIs epJftCpmTVB0m0LrWi92P 29sIHdpZHRoPSIyMCUiIH HpcOvlfg5mgO1hNv2+PC9 pe1opae03nV49 dHI+ICUfWKU1dBktCFilO GDwcZ8wHUaoOfP2YLDmLx DmbH78zWUuPRpmCv9rtLl bvUvrRG1wJHPi hgfyj826QdQes6qtJIYgt HIqDCxmZEG5C98xm1X0XL AzMQEqPTQ1aCK8kS0tqCh nbjogbGVmdDsg edJkiIqnHXceXElzD583D BDygPvvFaEjeQVlC8bhjg HYUU9nHktxoSX+PHRkIHN 0eWxlPSdwYWRk gM6wZFYiL7x6IqIsHnO2C IbrP4XngcG1YQUquEGgDN QpjXWBfN1flownq8cteui gIzAwMDAwMDt0 UMi9VINdaSdwFdXgKNL9I jR8WOH3tIWapZ4wuQqmfz dknP0yMdi+RklOOjwvdGQ +GWYnGOF7cOqp VFhpIOTrkF1jHGPbN1o3K nYtMvQ3RNqwX7NircO3RJ CgnPIvGTWraKBNqM4fkvv sp9wawesqKkXv VTWuCUw2ESj1MJDpvBohQ bJqXYC6XoR6PXL1xLXceC 2hkRdkwxkzfF7oJop+TVJ OOjwvdGQ+PHRk SDT9aZliCVyeXUAklS4oC OFqR7y5ZsXgDvA4MPlnN0 EjarR6WXJomPEyQXLpmXU XnG8mbdaui2tn wczqFqSnLFXpYVj7BEi1R INdpLxfQyLjGXY2LvO4XJ O8fCCzhQ4lsLbnjkhflF2 wOyc+CXP1RMP6 ZI11QF10O6JkYglweSLib +PHRhYmxlIHdpZHRoPS ayZYDcTtSegWxiFE9wFm8 yZGVyLWNvbGxh cHNlOiBj (more content not included)... Normal [facility] Auto Diffon 08-09-2022 Basophils/100 WBC (Bld) 0.5 % Normal 0.0-2.0 [facility] Comment on above: Order Comment: Order Added by Discern Expert. Performed By: #### 2 647606, 7326398, 57190675, 3748938, 37328906, 79407129, 82528417 ####[facility] [address] [place] [address] Basophils/Leukocytes Auto (Bld) [Pure # fraction] 0.1 E9/L Normal 0.0-0.2 [facility] Comment on above: Order Comment: Order Added by Discern Expert. Performed By: #### 2 378990, 6558568, 28061328, 7588974, 56851581, 90701886, 18226526 ####[facility] [address] [place] [address] Eosinophils/100 WBC (Bld) 2.7 % Normal 0.0-8.0 [facility] Comment on above: Order Comment: Order Added by Discern Expert. Performed By: #### 2 079726, 8057606, 22380821, 0052410, 92353931, 60956596, 75164680 ####[facility] [address] [place] [address] Eosinophils/Leukocytes Auto (Bld) [Pure # fraction] 0.4 E9/L Normal 0.0-0.5 [facility] Comment on above: Order Comment: Order Added by Discern Expert. Performed By: #### 2 775391, 2433937, 66941827, 2262328, 30031863, 93524394, 88837673 ####[facility] [address] [place] [address] Lymphocytes/100 WBC (Bld) 12.8 % Low 14.0-50.0 [facility] Comment on above: Order Comment: Order Added by Discern Expert. Performed By: #### 2 517524, 8665766, 79527769, 5975138, 38564366, 90585665, 37050902 ####[address] [place] [address] Lymphocytes/Leukocytes Auto (Bld) [Pure # fraction] 2.1 E9/L Normal 1.0-4.0 [facility] Comment on above: Order Comment: Order Added by Discern Expert. Performed By: #### 2 885461, 3793696, 58768529, 2509292, 86185623, 64089000, 36429459 ####[address] [place] [address] Monocytes/100 WBC (Bld) 6.4 % Normal 4.0-14.0 [facility] Comment on above: Order Comment: Order Added by Discern Expert. Performed By: #### 2 375331, 6960567, 25610261, 8464299, 27368463, 94072667, 81891692 ####[address] [place] [address] Monocytes/Leukocytes Auto (Bld) [Pure # fraction] 1.0 E9/L Normal 0.2-1.0 [facility] Comment on above: Order Comment: Order Added by Discern Expert. Performed By: #### 2 030032, 3304635, 28946066, 2160788, 46567867, 22750795, 51227932 ####[facility] [address] [place] [address] Neutrophils/100 WBC (Bld) 77.6 % High 36.0-75.0 [facility] Comment on above: Order Comment: Order Added by Discern Expert. Performed By: #### 2 914332, 9374410, 00178237, 7995171, 36971752, 17659161, 31158658 ####[facility] [address] [place] [address] Neutrophils/Leukocytes Auto (Bld) [Pure # fraction] 12.6 E9/L High 2.0-7.5 [facility] Comment on above: Order Comment: Order Added by Discern Expert. Performed By: #### 2 938249, 7452812, 84686590, 2774297, 04850376, 72582552, 35815132 ####[facility] [address] [place] [address] BMPon 08-09-2022 Creatinine [Mass/Vol] 1.1 mg/dL Normal 0.5-1.3 [facility] Comment on above: Performed By: #### 2 047520, 1571291, 69682082, 2601429, 07172012, 22595660, 66114691 ####[facility] [address] [place] [address] Urea nitrogen [Mass/Vol] 18 mg/dL Normal 5-21 [facility] Comment on above: Performed By: #### 2 072456, 2237739, 22866511, 9232515, 02623754, 99568276, 48099416 ####[facility] [address] [place] [address] Urea nitrogen/Creatinine [Mass ratio] 16 No Units Normal 10-20 [facility] Comment on above: Performed By: #### 2 576676, 8618961, 77329981, 5668146, 42476780, 46561877, 21574973 ####[facility] [address] [place] [address] Anion gap [Moles/Vol] 13 mmol/L Normal 6-16 [facility] Comment on above: Performed By: #### 2 803650, 5306355, 90672453, 1401284, 19760246, 10096127, 60454123 ####[facility] [address] [place] [address] Calcium [Mass/Vol] 8.8 mg/dL Low 8.9-11.1 [facility] Comment on above: Performed By: #### 2 936704, 6176555, 73249157, 8106483, 35621104, 61486583, 85672535 ####[facility] [address] [place] [address] Chloride [Moles/Vol] 101 mmol/L Normal 101-111 [facility] Comment on above: Performed By: #### 2 819304, 8800605, 80144482, 3031978, 12561627, 63960062, 93015203 ####[facility] [address] [place] [address] CO2 [Moles/Vol] 27 mmol/L Normal 21-31 [facility] Comment on above: Performed By: #### 2 448588, 4274957, 30257011, 6962778, 17032577, 49307766, 77266323 ####[facility] [address] [place] [address] Glucose [Mass/Vol] 121 mg/dL Normal 55-199 [facility] Comment on above: Result Comment: If t his glucose result represents a fasting glucose, interpretation should refer to the following reference range: 55-99 mg/dL Performed By: #### 2 372106, 1261760, 71164753, 0095252, 45934650, 79459770, 23064362 ####[facility] [address] [place] [address] Potassium [Moles/Vol] 3.9 mmol/L Normal 3.5-5.3 [facility] Comment on above: Performed By: #### 2 [id number], [id number], [id number], 7293334, [id number], [id number], [id number] ####[facility] [address] [place] [address] Sodium [Moles/Vol] 137 mmol/L Normal 135-145 [facility] Comment on above: Performed By: #### 2 [id number], 5499116, [id number], 7230415, [id number], 83839308, [id number] ####[facility] [address] [place] [address] BNPon 08-09-2022 Int Ctr BNP Pass Normal [facility] Comment on above: Performed By: #### 2 104669, [id number], [id number], 8351645, [id number], [id number], [id number] ####[facility] [address] [place] [address] Natriuretic peptide B (Bld) [Mass/Vol] 19 pg/mL Normal 5-80 [facility] Comment on above: Performed By: #### 2 [id number], 5049493, 96476690, 9817003, 78962697, [id number], [id number] ####[facility] [address] [place] [address] Blood Gas Art, with Lytes, G alex, [place] 08-09-2022 a/A Ratio Art 75.90 % Normal >=0.80 [facility] Comment on above: Performed By: #### 4 [id number] ####[facility] [address] [place] [address] AaDO2 Art 21.9 mmHg High 5.0-15.0 [facility] Comment on above: Performed By: #### 4 [id number] ####[facility] [address] [place] [address] Allens Test Not Applicable Normal [facility] Comment on above: Performed By: #### 4 [id number] ####[facility] [address] [place] [address] Base Excess Arterial 3.1 mmol/L Normal >=2.8 [facility] Comment on above: Performed By: #### 4 [id number] ####[facility] [address] [place] [address] cCa2+ Art 4.86 mg/dL Normal 4.40-5.30 [facility] Comment on above: Performed By: #### 4 [id number] ####[facility] [address] [place] [address] cCl- Art 105.0 mmol/L Normal 101.0-111.0 [facility] Comment on above: Performed By: #### 4 [id number] ####[address] [place] [address] cGlu Art 117 mg/dL High 55-99 [facility] Comment on above: Performed By: #### 4 [id number] ####[address] [place] [address] cK+ Art 4.0 mmol/L Normal 3.5-5.3 [facility] Comment on above: Performed By: #### 4 [id number] ####[facility] [address] [place] [address] cLac Art 1.4 mmol/L Normal .5-2.2 [facility] Comment on above: Performed By: #### 4 [id number] ####[facility] [address] [place] [address] copier technician+ Art 142.0 mmol/L Normal 135.0-145.0 [facility] Comment on above: Performed By: #### 4 [id number] ####[facility] [address] [place] [address] Drawn by [employer] Invalid Interpretation Code [facility] Comment on above: Performed By: #### 4 [id number] ####[facility] [address] [place] [address] FCOHb Art 1.0 % Low 1.5-4.9 [facility] Comment on above: Result Comment: Refe rence range Nonsmoker <1.5% Smoker <5.0% Heavy Smoker <9.0% Performed By: #### 4 [id number] ####[facility] [address] [place] [address] FIO2 BG 21 Invalid Interpretation Code [facility] Comment on above: Performed By: #### 4 [id number] ####[facility] [address] [place] [address] FMetHb Art 0.5 % Normal 0.0-1.9 [facility] Comment on above: Performed By: #### 4 [id number] ####[facility] [address] [place] [address] FO2Hb Art 92.6 % Normal 92.0-100.0 [facility] Comment on above: Performed By: #### 4 [id number] ####[facility] [address] [place] [address] HCO3 (Bld) [Moles/Vol] 27.1 mmol/L High 22.0-26.0 [facility] Comment on above: Performed By: #### 4 [id number] ####[facility] [address] [place] [address] Hemoglobin (Bld) [Mass/Vol] 12.5 g/dL Normal 12.0-16.0 [facility] Comment on above: Performed By: #### 4 [id number] ####[facility] [address] [place] [address] Oxygen saturation in Blood 94.1 % Low 95.0-100.0 [facility] Comment on above: Performed By: #### 4 [id number] ####[facility] [facility] [address] [place] [address] P CO2 Arterial 48.9 mmHg High 35.0-45.0 [facility] Comment on above: Performed By: #### 4 [id number] ####[facility] [address] [place] [address] P O2 Arterial 68.8 mmHg Low 80.0-100.0 [facility] Comment on above: Performed By: #### 4 [id number] ####[facility] [address] [place] [address] pH Arterial 7.383 Normal 7.350-7.450 [facility] Comment on above: Performed By: #### 4 [id number] ####[place] [id number] Sample Site R Brachial Normal [facility] Comment on above: Performed By: #### 4 [id number] ####[place] [id number] Sample Type Arterial Draw Normal [facility] Comment on above: Performed By: #### 4 [id number] ####[address] [address] CBC w/ Auto Diffon 3 Erythrocyte distribution width (RBC) [Ratio] 15.4 % High 10.9-14.2 [facility] Comment on above: Performed By: #### 2 724661, 3845370, 66620871, 1455343, 64141327, 00559851, 26028091 ####[address] [address] Hematocrit (Bld) [Volume fraction] 36.9 % Normal 34.0-46.0 [facility] Comment on above: Performed By: #### 2 437873, 1780738, 96252347, 6686014, 32488740, 72811806, 37340709 ####[facility] [address] [place] [address] Hemoglobin (Bld) [Mass/Vol] 11.8 g/dL Low 12.0-16.0 [facility] Comment on above: Performed By: #### 2 788784, 2895644, 77850213, 7856016, 67769721, 68601354, 40660259 ####[facility] [address] [place] [address] MCH (RBC) [Entitic mass] 28.0 pg Normal 27.0-34.0 [facility] Comment on above: Performed By: #### 2 597952, 5330039, 40724766, 2359521, 22970417, 49728450, 40815395 ####[facility] [address] [place] 3747357 MCHC (RBC) [Mass/Vol] 32.0 g/dL Normal 31.4-36.0 [facility] Comment on above: Performed By: #### 2 753992, 2025630, 35117400, 8005999, 02968067, 94348228, 94790514 ####[address] [address] MCV (RBC) [Entitic vol] 87.6 fL Normal 80.0-100.0 [facility] Comment on above: Performed By: #### 2 036209, 6914081, 74160030, 5506222, 74545200, 13870288, 05491504 ####[address] [address] Platelet mean volume (Bld) [Entitic vol] 8.4 fL Normal 6.4-10.8 [facility] Comment on above: Performed By: #### 2 154041, 5060294, 65344779, 2027675, 23841927, 42398302, 11848979 ####[address] [address] Platelets (Bld) [#/Vol] 238.0 E9/L Normal 150.0-500.0 [facility] Comment on above: Performed By: #### 2 700286, 3849926, 91068018, 9593779, 07127231, 70598863, 18784381 ####[address] [address] RBC (Bld) [#/Vol] 4.2 E12/L Low 4.3-5.9 [facility] Comment on above: Performed By: #### 2 341060, 1693053, 70275820, 0812176, 17788965, 04063890, 80714011 ####[facility] [address] [place] [address] WBC corrected for nucl RBC Auto (Bld) [#/Vol] 16.3 E9/L High 4.0-11.0 [facility] Comment on above: Result Comment: Slid e reviewed by LW. Performed By: #### 2 423340, 5720517, 20899419, 7349333, 20208269, 65370420, 44311849 ####[facility] [address] [place] [address] CHEMISTRYOrdered By: SYSTEM SYSTEM on 08-09-2022 Troponin I.cardiac [Mass/Vol] 7.00 pg/mL Low 10.10 - 27.10 pg/mL [facility] Remisol Anion gap [Moles/Vol] 13 mmol/L Normal [...] 3.9 mmol/L Normal 3.5 - 5.3 mmol/L [facility] Remisol Sodium [Moles/Vol] 137 mmol/L Normal 135 - 145 mmol/L FT Remisol Troponin I.cardiac [Mass/Vol] 4.00 pg/mL Low 10.10 - 27.10 pg/mL FT Remisol Urea nitrogen [Mass/Vol] 18 mg/dL Normal 5 - 21 mg/dL FT Remisol Urea nitrogen/Creatinine [Mass ratio] 16 mg/mg Normal 10 - 20 [facility] Remisol CHEMISTRYOrdered By: Evelyn montenegroer on 08-09-2022 [...] 370 Contrast amount in ml's: 73 Normal [facility] Discharge Instructionson Discharge Instructions [id number]# [id number] Normal [facility] ED Clinical Summaryon 2022 ED Clinical Summary [place] [address] ED Clinical Summary Person Information Name: VIVIAN VANN Vika/[facility] Age: 62 Years : 1960 Sex: Female Language: Togolese PCP: Екатерина Robert MD Marital Status: Visit [...] 08/09/2022 18:01:49 08/09/2022 18:01:49 08/09/2022 18:01:49 AD[address]: [address] [id number] PHYS DOC NOTES: MEDICAL INFORMATION: Prescriptions Given: [facility], [address] [place], [place] [id number], [phone] brompheniramine/dextr omethorphan/PSE (Bromfed DM oral syrup) 5 [...] Follow up: With: Address: When: Екатерина Robert [address] [place] [address], [facility] [place] [phone] Business (1) In 3 days 08/12/2022 Comments: Call the office of your primary care doctor to arrange for follow-up within the above-stated timeframe. Follow-up with your primary care doctor about this ED visit. You should review your labs, imaging, and diagnoses from this ED visit with your primary care physician. If y (more content not included)... Normal [facility] ED Note-Physicianon 08-10-19 ED Note-Physician Basic Information [...] that she has had 2 admissions to [facility] over the last few weeks for pneumonia/COPD exacerbation. Patient is currently on amoxicillin at home, feels that her symptoms are not improving but are in fact worsening. Patient endorses fevers and chills, myalgias. Patient reports her symptoms had not improved much on her last discharge from [place], and worsening since that time. Patient is [...] of Problems Differential Diagnosis: [] [facility] Data External documents reviewed: [] My EKG [...] for co (more content not included)... Normal [facility] Comment on above: Result Comment: Elec tronically [...] these instructions at home: Medicines ? Take zddl-ckn-eonbavg and prescription medicines (inhaled or pills) only [...] you e (more content not included)... Normal [facility] ED Patient Summaryon 023 ED Patient Summary [address] [address] Patient Discharge Instructions Person Information Name: VIVIAN VANN Age: 62 Years Arrival Date: 08/09/2022 13:09:07 Discharge Diagnosis: COPD exacerbation Primary Care Physician: Екатерина Robert MD Provider Information Primary Provider: Arsenio Martin DO [employer] Specialist:Clinton Lucero PA-C The exam and treatment you received in the Emergency Department were for an urgent problem and are not intended as complete care. It is important that you follow up with a doctor, nurse practitioner, or physician?s blood and plasma laboratory assistant for ongoing care. If your symptoms [...] Follow-up Instructions: With: Address: When: Екатерина Robert [address] [place] [address], [facility] [place] [address] Business (1) In 3 days [...] opioids can be used to help relieve abuyezrx-gi-galtit pain and are often prescribed following a [...] Safely disp (more content not included)... Normal [facility] EMS Documentationon 08-10-19 23 EMS Documentation Please click on link to see report [id number] CiX5+prnDQolQUJDcGRmI MAzIwB1DXbrFiZsAZ1vwv 8MGZkNZ2DaVONxYIc8Xb6 I NGcgHCp0WJHtXM1FE6igF Fy0IlP8Fy4ChQ2uHCVgcz QaNFSZO95pLppcGzOsJYv hHHPpEwt5BtHY Mo3tZTYeQUOfAYTqDNGcX CAgICAgICAgICAgICAgIC AgICAgICAgICAgICAgICA gICAgICAgICAg ICAgICAgICAgICAgICAgI CAgICAgDQplbmRvYmoNCg 8KzABzXd3JJcUwVbPWOjF wMDAwMDAwMzIg UICwOCHywb3GQMAuETPoS JX3STYqMHWuNJCbORkcKE XwXIHhJVm6ATWqSOFfBG6 NCjAwMDAwMDE3 RWIdNQZuXVQxrm9IVXKsR DAwMTkzNCAwMDAwMCBuDQ vrXUOyUADuDMp9WDCwKUD nMY5SDvXvOCTt OIRvIaUjNDFdMVCobo9NI DAwMDAwMjMxNSAwMDAwMC RqJRuqIXUiGWCiRws6IYJ mDNNsNG5PScNc KMNeZMS7FGesSUZePLMnm b1LUECoNWXqDxkhVSCrNJ AwMCBuDQowMDAwMDAzMDY pUPAaKNQaEC9T MjRbZQHxTPN7UPFxALZeG JYwud3BSRRoQAFeCoTiQc AwMDAwMCBuDQowMDAwMDA xZRQ6EJVfLGXe DX4SZuGzQPMiUSEvMLWnD ITuKRNxqe4IOMCuYACxAA U0WnPtIMQkNPQbOIyfRDK jCJQ8EsS4CGVv SACxSN3XYvJnRFVgATT9I RMnDIJjHZNqob6DVJMpGM KaWVK0RENwRFWcKCXnEBm bNZBfYKS6FWU4 FOIfXGRrOV1TDtCnBUFnS ZV8CYeyDBMsERMcuc2BSK AwMDAwOTMwMCAwMDAwMCB uDQowMDAwMDQ5 MZfrFHUlRNXbDN4ZIjDfI IXcGRE8UFHrIGNrNBJnhu 2VcPKkzRhsiz2RXTvFU5v GAMs9GPFVYKN6 SeL8R2Y1RgS7JPlORQpfK OH4ZBWRDzO6BKM+CjxGRj JyI6SGEIGXXWAuWurmJRQ MJVP4VSbzKIg3 IETtDS0tJq0MxkE8URI6U RfoNFgrXa7psOGhNgTcSK KPV8FhpsWaRCuEZ2DylFO cTYDmQ9YWZKF7 Ly91IswjcQvNAAK7ZYUUJ ZdoQB1TShpIGtYkLFbsGp 15U8LJq4Y8EnPnZ0BAkPz CohZJXGlkR7tE yMH3n3ybnZmTwNLLyWagX GdJcndPalFSQUlqUHNXaE 35lgnCR9KdAOk5R6DYXg9 VCDmkZhTqvT8X zVosCVR9qE1kIAYUVXjXR wydRK0CRXDFMFl4BFg+Pi AgICAgICAgICAgICAgICA gICAgICAgICAg ICAgICAgICAgICAgICAgI CAgICAgICAgICAgICAgIC AgICAgICAgICAgICAgICA gICAgICAgICAg ICAgICAgICAgICAgICAgI CAgICAgICAgICAgICAgIC AgICAgICAgICAgICAgICA gICAgICAgICAg ICAgICAgICAgICAgICAgI CAgICAgICAgICAgICAgIC AgICAgICAgICAgICAgICA gICAgICAgICAg ICAgICAgICAgICAgICAgI CAgICAgICAgICAgICAgIC AgICAgICAgICAgICAgICA gICAgICAgICAg ICAgICAgICAgICAgICAgI CAgICAgICAgICAgICAgIC AgICAgICAgICAgICAgICA gICAgICAgICAg ICAgICAgICAgICAgICAgI CAgICAgICAgICAgICAgIC AgICAgICAgICAgICAgICA gICAgICAgICAg ICAgICAgICAgICAgICAgI CAgICAgICAgICAgICAgIC AgICAgICAgICAgICAgICA gICAgICAgICAg UL9We0NakvV6wpUkUFsiB WasHLJYMn0OROdeGcFgZN 2zkx7ZZMqMM36veSGcIOD hIDIxIDAgUgov P0TvotGifXcrkiJsCpBlU CEEQn5WcCHFAXdrT9S1wX hgQIBcHSpbSFRIRx8UKWf oAY3yCPGyBWFe Fr5cCHnyZXSoYPSlWhOjY APJDh6UyHHgDM2TWPNabK 9nCj4+DQplbmRvYmoNCg0 KMjQgMCBvYmoN Thi4Db2RkNb5ONGmU5YuO YEcIWLrn9JrHf4FOY2rpB njPVR9Xv6JDNi9Gf1+DQp vaRGoRM0UOids J7UoULQqUEBiBKIpQGzRx XCgAIUpQLYQVIyLgXHaDQ jzpTYDMsAQZzMCEmJQzMC oCoX0QAyAW8A1 LLcEExRbw4G9HToJNOCWB yKiNBlJaEhG9rBSgSbWnt D24FY0fGaYVUIzUNQD6HQ toSsD1TzMEa8L 9G1MNH9cn2VgMQWtXHyfz zHjEwlASc1FQfTmVAQhHn qHWcx3Js0Aq797NJ03geJ bNDIgMCBSXQov WKFrcBQPr8vyDoAaNLJ4L WWdIexcYXmcCUIjUT61QN BuFUWsXwwnIsNhq9IzK3L oAZu9As8VX9Ik HOD3HDq7Kq9WMJPgCuNqT qVbFEKMTj4WXi8UC6B4aG YiK0YdS9VAMx0KUqVpIB9 zlj9FLAvaJiLh WS1uyg3MSSgJQ6SWt7pcZ jUmZRP6AGNkWohzYZocLc sorWPmPW1NcXR1JMWxX99 fEFbsVWLoB7Di LCk8Aw2ESVTyiZHcUJPoW PtDI6qIQqeiR2VoCRwRF1 byNlZ3EQEyTEEeCbx+Pgo +YpttA4KhdEaw WAVfWx3wnFmlQIxwJKOeH G0hubKehFe+Eu4Ji1XiFT OvRZw1lOTP1XYz6AUfXRI hRHU3TWMkbvHS YRne5LvZhBJnYqSsfCSsO 9zeGKSy57lZZKVkLjsIl3 etAdNj3KlCAG+NW1QYhvP cMvApum7IJLwl ieJayHYqZV7ARnSiPP7zc z8WUGujZyHqSI8qtd2UYF oJQ6APIE2Zw1ZnIWyRU9C QXKWLG1uYVVYC S6eXKDCIK1kMEVCYA40HZ WQRP2OZJJZfdHEOR9WxIK MFVs8JLkVyRG3xak4KGVa kKRRjBG4bcj1J UBaQI8UHRM3Aw8BiRXsVF 6MeFQHEBr7OZjCzVT5noi 8OJRzkPKZbNM8plu2AWNp EU4FGOJ2Ps3Jy CArQL1QUOVIMR8iCAAUWB 5xKYZGUG0yZGETPH58EJS QUM8ADPENxmTCDA5DxJTN HWi5UCxMgVZ8e jf5QWUeoRZHpRO3ktg5CD LmPN7Fix9XTb345RA9TCo gBAI3jP012oqqndg9sd1G TLUJvbGRNVAov GCNsB7JqPMMkbIYcasElH BbnGRGlZRSjHz4LngXzBR luZyAvSWRlbnRpdHktSAo yV6VqmSegCHZq SJhcSMMNH3OvBX4lW75iX ZWwNcQmPGEDN1S4cPScP4 MzmjWXTu0DXcLyNS4you0 EQGdmLFMrAZ0i qi0OLOdGA3Dow9RXj816S U5ULauHER0jA005ocwlky 4av5XSIEOfrFCLYAcjC1l QE9zvbXVnLX2c dtL8FInqL4ExLHOtehbcN SesHH00eKH2XIduWkBjkP C6rxtrGREwl4WgACciF5H wcGxlbWVudCAw Cj4+Kj5ULDPNz6cEHQ1fl QJuUQMzkjYiaFmPE4NHJE JQD4WcmiJBBWZoqfwniZ2 yIDMyIDAgUgov A9AbvVidRCDpB7lAUs4vb IS2gWYlDr7AuLPxCL7Vs1 89Jz3UQSptWFtiGCXtUZ9 uTXt3Vv2AUk1P KhQbWQ1txb1XINwyHySdZ X1iia8ACNpKY5NeM1NevO L2FoJmOKP2SAKMS8CylCk cqRsdcUL5HQRv Czb8KCrYC2Tqu5UshdTcA sRsBuJ0Txn5Iv0SvRThhg XfJQwgSz0axZLRn0aaLb9 aZEUgJAe0PIYc YUnnWE81EYjmAyD8SWJpA oMbUNPbESKeBI9fTEP4UQ 8BW1AbgkEZiBuoVeY9VJP gUOYMZ0YlnvKY AW7fWZ7HMlaUUL3dI613m xeoix5sc6YFULSnsOXMAE dpMVKltVfxYN3inZKeZCp lP1TyiYHsHnTl DDnsSAzQP7D7rNKrY6Zdu uSCHUAptnhpmF9jIs9+DQ xklwUbTmvBMg0CGbFxKUZ sTrgZIto3Rc7W tKx0AEOgZ5XfTRKyIASlu 0AsOa6XFD1cvDnjBbJ2Qe 4+UWemaXUeZF5LAssuOAU ThjBmCDt0J1jO RqVOSBwMMGyyfaYvY9DeH 7c1yVbZuGiw7U7thiLLuh haL3oqz82D1Y5+qTpw1WI JcfCFt4O5i0p8 sDZ7IOjuLOm6WwjpSf6c5 BxLoridpwBDY/uRlSXnyV rPFbWNcMIQ5efvWYFzJRt gh4r1wTuX65tm vzCADVywquIa+oz75az4w jAasQxo5Mh4JY4CtSUib5 dEVwNWwjRdbdw6Usywm5Q BFXyMa4GvHSFu /7TtXn482uU8yY4xvsONC Cj6uFVERrHApBxe0a4oGv JtFK6LoF9sGwEW9z4BmxE Uw5v68pIWB6Zj RvIayawgcodHIYmkChnJi xckc/KrVW0ly4QsIKH+y+ vEsHHkXfwk2KtkEi6CfzM K58qKYMsZ98/A xY1HLq1ivymgGm1WTX7wr 3RyZWFtDQplbmRvYmoNCg 2XIqHdOGUcJhtEGsw4Ws1 PBIMdFw9uhPIm LqyFFXrVU3GnrEBjJZLRC CwSV58OSx6AYBLfNW9cXP 32Vi9afVCbSjE9LZMvGw9 IP4BlB24tyF5f CK6SJMBxzCi4rV7TYj9Eb PL3eITrRI9TtZCrYPauEC 8Semixw8ZkBJD3 (more content not included)... Normal [facility] FT Blood GasesOrdered By: Ra raciel Marx [...] - 2.2 mmol/L FT Resp Auto SS copier technician+ Art 142.0 mmol/L Normal 135.0 - 145.0 mmol/L [facility] Resp Auto SS Drawn by RLG Invalid Interpretation Code [facility] Resp Auto SS FCOHb Art 1.0 % Low 1.5 - 4.9 % [facility] Resp Auto SS FIO2 BG 21 Invalid Interpretation Code [facility] Resp Auto SS FMetHb Art 0.5 % Normal 0.0 - 1.9 % FT Resp Auto SS FO2Hb Art 92.6 % Normal 92.0 - 100.0 % [facility] Resp Auto SS HCO3 (Bld) [Moles/Vol] 27.1 mmol/L High 22.0 - 26.0 mmol/L FT Resp Auto SS Hemoglobin (Bld) [Mass/Vol] 12.5 g/dL Normal 12.0 - 16.0 gm/dL [facility] Resp Auto SS P CO2 Arterial 48.9 mm[Hg] High 35.0 - 45.0 mmHg FT Resp Auto SS P O2 Arterial 68.8 mm[Hg] Low 80.0 - 100.0 mmHg [facility] Resp Auto SS pH Arterial 7.383 Normal 7.350 - 7.450 [facility] Resp Auto SS Sample Site R Brachial (08/09/22 2:03 PM) Normal [facility] Resp Auto SS Sample Type Arterial Draw (08/09/22 2:03 PM) Normal [facility] Resp Auto SS HEMATOLOGYOrdered By: SYSTEM SYSTEM [...] 32.0 g/dL Normal 31.4 - 36.0 gm/dL [facility] HemeAutoSS MCV (RBC) [Entitic vol] 87.6 fL [...] Coag (PPP) [Time] 31.4 second(s) Normal 25.1-36.5 [facility] Comment on above: Result Comment: Para meter [...] - 109.0 sec. Performed By: #### 2 772821, 0474251, 59801226, 4903726, 87798935, 42562662, 87696171 ####[facility] [address] [place] [address] INR Coag (PPP) [Relative time] 0.9 {INR} Invalid Interpretation Code [facility] Comment on above: Result Comment: INR results are specifically intended to assess patients stabilized on long-term Anticoagulation therapy suggested INR?s ?Less Intensive Anticoagulation? 2.0 ? 3.0 Conventional Range 3.0 ? 4.5 Performed By: #### 2 614476, 0818090, 98821362, 5086135, 08911982, 99743301, 83564740 ####[facility] [address] [place] [address] PT Coag (PPP) [Time] 10.3 second(s) Normal 9.4-12.5 [facility] Comment on above: Result Comment: 15 d [...] no normal ranges. Performed By: #### 2 408483, 2153890, 42080081, 4726458, 93179326, 89217996, 75415137 ####[facility] [address] [place] [address] Pre-Arrival Noteon 3 Pre-Arrival Note Pre-Arrival Summary Name: , Current Date: 08/09/2022 13:09:29 EDT Gender: Female Date of : Age: 62 Pre-Arrival Type: EMS ETA: 08/09/2022 13:33:00 EDT Primary Care Physician: Presenting Problem: sob Pre-Arrival User: John Martin Referring Source: Location: [place] Completion Date/Time: 08/09/2022 13:03:00 [facility] Emergency Department Pre-Hospital Report Form Vital Signs: Pre-Hospital Report: Treatment in Route: Response to Treatment: Misc. Issues: Normal [facility] Troponin 0 Hr.on 08-09-2022 Troponin I.cardiac [Mass/Vol] 4.00 pg/mL Low 10.10-27.10 [facility] Comment on above: Result Comment: The 95% CI (Confidence Interval) PPV (Positive Predictive Value) for myocardial infarction in females is 38 pg/mL, in males 51 pg/mL. The results should be used in conjunction with clinical conditions of myocardial infarction. (Access High Sensitivity Troponin I Instructions For Use, IPM [place], December 2017) Performed By: #### 2 677654, 2427865, 50379979, 6369920, 82950635, 46754961, 07322526 ####[facility] [address] [place] [address] Troponin 3 Hr.on 08-09-2022 Troponin I.cardiac [Mass/Vol] 7.00 pg/mL Low 10.10-27.10 [facility] Comment on above: Result Comment: The 95% CI (Confidence Interval) PPV (Positive Predictive Value) for myocardial infarction in females is 38 pg/mL, in males 51 pg/mL. The results should be used in conjunction with clinical conditions of myocardial infarction. (Access High Sensitivity Troponin I Instructions For Use, IPM [place], December 2017) Performed By: #### 1 [id number] ####[place] [address] [place] [address] XR Chest Single Viewon 08-09 XR Chest [...] mGy = na DAP = na Normal [facility] eGFRon 08-09-2022 GFR/1.73 sq M.predicted among blacks MDRD (S/P/Bld) [Vol rate/Area] mL/min/{1.73_m2} Normal >=59 [facility] Comment on above: Order Comment: Order added by Discern Expert. Result Comment: eGFR is race adjusted. AA=. Performed By: #### 2 889229, 0271619, 01921823, 8246428, 59537985, 17209817, 00169337 ####[facility] [address] [place] [address] GFR/1.73 sq M.predicted among non-blacks MDRD (S/P/Bld) [Vol rate/Area] 50 mL/min/1.73 m2 Low >=59 [facility] Comment on above: Order Comment: Order added by Discern Expert. Result Comment: Industrial Training Specialist valeria kidney disease could be indicated at eGFR's of less than 60 mL/min/1.73m2. Kidney failure is indicated at less than 15 mL/min/1.73m2. Performed By: #### 2 787788, 0614679, 31963397, 0169602, 11029198, 02644951, 42056713 ####[facility] [address] [place] [address] CBC W MANUAL DIFFon 08-02-19 23 ATYPICAL LYMPH # Normal [facility] Comment on above: Performed By: #### C ROSARIO ####[facility] [address] [place] [id number]. Nahed Yañez ATYPICAL LYMPH % Normal [facility] Comment on above: Performed By: #### C ROSARIO ####[facility] [address] [place] [address]Dr. Nahed Yañez BAND # 0.9 103/ul Critically high 0.0-0.3 [facility] Comment on above: Performed By: #### C ROSARIO ####[facility] [address] [place] [address]Dr. Yilan Yañez BAND % 5 % Normal 0-5 [facility] Comment on above: Performed By: #### C ROSARIO ####[facility] [address] [place] [address]Dr. Nahed Yañez BASOM # 0.00 103/ul Normal 0.00-0.10 [facility] Comment on above: Performed By: #### C ROSARIO ####[facility] [address] [place] [address]Dr. Nahed Yañez BASOM % 0.0 % Critically low 0.2-2.0 [facility] Comment on above: Performed By: #### C ROSARIO ####[facility] [address] [place], [place] [address]Dr. Nahed Yañez BLAST # Normal [facility] Comment on above: Performed By: #### C ROSARIO ####[facility] [address] [place] [address]Dr. Nahed Yañez BLAST % Normal [facility] Comment on above: Performed By: #### C ROSARIO ####[facility] [address] [place] [address]Dr. Nahed Yañez CORRECTED WBC Normal 4.0-11.0 [facility] Comment on above: Performed By: #### C ROSARIO ####[facility] [address] [place] [address]Dr. Nahed Yañez EOS # 0.00 103/ul Normal 0.00-0.70 [facility] Comment on above: Performed By: #### C ROSARIO ####[facility] [address] [place], [place] [address]Oc. Nahed Yañez EOS% 0.0 % Critically low 0.9-7.0 [facility] Comment on above: Performed By: #### C ROSARIO ####[facility] [address] [place], [place] [address]Nk. Nahed Yañez HCT 39.5 % Normal 36.0-48.0 [facility] Comment on above: Performed By: #### C ROSARIO ####[facility] [address] [place], [place] [address]Je. Nahed Yañez HGB 13.0 g/dl Normal 12.0-16.0 [facility] Comment on above: Performed By: #### C ROSARIO ####[facility] [address] [place] [id number]. Nahed Yañez LYMPHM # 1.72 103/ul Normal 1.20-3.80 [facility] Comment on above: Performed By: #### Isabell PONCE ####[facility] [address] [place], [place] [address]Li. Nahed Yañez LYMPHM% 10.0 % Critically low 20.5-60.0 [facility] Comment on above: Performed By: #### Isabell PONCE ####[facility] [address] [place], [place] [address]Xr. Nahed Yañez MCH 28.7 pg Normal 26.7-34.0 [facility] Comment on above: Performed By: #### Isabell PONCE ####[facility] [address] [place], [place] [address]Ec. Nahed Yañez MCHC 32.9 g/dl Normal 29.9-35.2 [facility] Comment on above: Performed By: #### Isabell PONCE ####[facility] [address] [place], [place] [address]Vp. Nhaed aYñez MCV 87.2 fL Normal 81.0-99.0 [facility] Comment on above: Performed By: #### Isabell PONCE ####[facility] [address] [place] [id number]. Nahed Yañez METAMYELOCYTE # Normal [facility] Comment on above: Performed By: #### C ROSARIO ####[facility] [address] [place] [id number]. Nahed Yañez METAMYELOCYTE % Normal [facility] Comment on above: Performed By: #### C ROSARIO ####[facility] [address] [place] [phone]. Nahed Yañez MONOM# 0.86 103/ul Critically high 0.30-0.80 [facility] Comment on above: Performed By: #### C ROSARIO ####[facility] [address] [place] [phone]. Nahed Yañez MONOM% 5.0 % Normal 1.7-12.0 [facility] Comment on above: Performed By: #### C ROSARIO ####[facility] [address] [place] [phone]. Nahed Yañez MPV 9.8 fL Normal 9.5-13.5 [facility] Comment on above: Performed By: #### C ROSARIO ####[facility] [address] [place] [phone]. Nahed Yañez MYELOCYTE # Normal [facility] Comment on above: Performed By: #### C ROSARIO ####[facility] [address] [place] [phone]. Nahed Yañez MYELOCYTE % Normal [facility] Comment on above: Performed By: #### C ROSARIO ####[facility] [address] [place] [phone]. Nahed Yañez NRBC Normal [facility] Comment on above: Performed By: #### C ROSARIO ####[facility] [address] [place] [phone]. Nahed Yañez PLT 388 103/ul Normal 150-450 [facility] Comment on above: Performed By: #### C ROSARIO ####[facility] [address]cltd[address] [place] [phone]. Rosemarieashley Otilio RBC 4.53 106/ul Normal 4.20-5.40 [facility] Comment on above: Performed By: #### C GILBERTOMAN ####[facility] [address] [place] [phone]. Nahed Yañez RDW 14.4 % Normal 11.0-15.0 [facility] Comment on above: Performed By: #### C ROSARIO ####[facility] [address] [place], [place] [address]Wm. Nahed Yañez SEG # 13.76 103/ul Critically high 1.40-6.50 [facility] System Comment on above: Performed By: #### C ROSARIO ####[facility] Nqz[address]obq[address] [place] [id number]. Nahed Yañez SEG % 80.0 % Critically high 43.0-75.0 [facility] Comment on above: Performed By: #### C ROSARIO ####[facility] [address]tsctuc[address] [place] [id number]. Nahed Yañez WBC 17.2 103/ul Critically high 4.0-11.0 [facility] Comment on above: Performed By: #### C ROSARIO ####[facility] Gwifugwlcp75[address] [place] [phone]. Nahed Yañez MAGNESIUMon 08-01-2022 Magnesium [Mass/Vol] 2.0 mg/dL Normal 1.8-2.4 [facility] Comment on above: Performed By: #### MG COLE, CMP ####[facility] Dsglpwbthm43[address] [place] [phone]. Nahed Yañez POINT OF CARE GLUCOSEon 07-13 Glucose [Mass/Vol] 267 mg/dL Critically high 74-106 [facility] Comment on above: Performed By: #### P OCGLUC ####[facility] Jyjvwdhqlz6[address] [place] [phone]. Nahed Yañez PROF 14(COMP METB)on 023 Albumin [Mass/Vol] 3.4 g/dL Normal 3.4-5.0 [facility] Comment on above: Performed By: #### Nydia ELLER MG, CMP ####[facility] Yqbtzberpi[address] [place] [address]Dr. Nahed Yañez Albumin/Globulin [Mass ratio] 0.9 {ratio} Normal [facility] Comment on above: Performed By: #### MG COLE, CMP ####[facility] Vqzuaownap[address] [place] [address]Dr. Nahed Yañez ALP [Catalytic activity/Vol] 100 U/L Normal 46-116 [facility] Comment on above: Performed By: #### MG COLE, CMP ####[facility] Qorujvmguo[address] [place] [address]Dr. Nahed Yaeñz ALT [Catalytic activity/Vol] 19 U/L Normal 14-59 [facility] Comment on above: Performed By: #### MG COLE, CMP ####[facility] Ckhrpeanfk30[address] [place] [address]Dr. Nahed Yañez Anion gap [Moles/Vol] 12.7 mmol/L Normal [facility] Comment on above: Performed By: #### MG COLE, CMP ####[facility] Ejvzdegrun30[address] [place] [address]Dr. Nahed Yañez AST [Catalytic activity/Vol] 13 U/L Critically low 15-37 [facility] Comment on above: Performed By: #### MG COLE, CMP ####[facility] Fqbybneces[address] [place] [address]Dr. Nahed Yañez Bilirubin [Mass/Vol] 0.4 mg/dL Normal 0.2-1.0 [facility] Comment on above: Performed By: #### MG COLE, CMP ####[facility] Vxmyisnqkx[address] [place] [address]Dr. Nahed Yañez Calcium [Mass/Vol] 9.5 mg/dL Normal 8.5-10.1 [facility] Comment on above: Performed By: #### MG COLE, CMP ####[facility] Vytbpzwdto13[address] [place] [address]Dr. Nahed Yañez Chloride [Moles/Vol] 100 mmol/L Normal 98-107 [facility] Comment on above: Performed By: #### MG COLE, CMP ####[facility] Elhvywpdkr[address] [place], [place] [address]Dr. Nahed Yañez CO2 [Moles/Vol] 27.1 mmol/L Normal 21.0-32.0 [facility] Comment on above: Performed By: #### MG COLE, CMP ####[facility] Kqhbhdnhop[address] [place], [place] [address]Dr. Nahed Yañez Creatinine [Mass/Vol] 1.16 mg/dL Critically high 0.55-1.02 [facility] Comment on above: Performed By: #### MG COLE, CMP ####[facility] Oejzxhiuwf[address] [place], [place] [address]Dr. Nahed Yañez EGFR-AF VINCENTIAN 58 mL/min/1.73m2 Critically low >=60 [facility] Comment on above: Performed By: #### MG COLE, CMP ####[facility] Tdumnsdvbi[address] [place], [place] [address]Dr. Nahed Yañez EGFR-NON AF VINCENTIAN 47 mL/min/1.73m2 Critically low >=60 [facility] Comment on above: Performed By: #### MG COLE, CMP ####[facility] Uaudstrqey[address] [place], [place] [address]Dr. Nahed Yañez Globulin (S) [Mass/Vol] 3.6 g/dL Normal [facility] Comment on above: Performed By: #### MG COLE, CMP ####[facility] Mkgypyduqd4[address] [place], [place] [address]Dr. Nahed Yañez Glucose [Mass/Vol] 175 mg/dL Critically high 74-106 [facility] Comment on above: Performed By: #### MG COLE, CMP ####[facility] Xoqxlevkkw8[address] [place], [place] [address]Dr. Rosemarieashley Yañez Potassium [Moles/Vol] 3.8 mmol/L Normal 3.5-5.1 [facility] Comment on above: Performed By: #### T RAFITA, MG, CMP ####[facility] Tzpbnuqrqa[address] [place] [address]Dr. Nahed Yañez Protein [Mass/Vol] 7.0 g/dL Normal 6.4-8.2 [facility] Comment on above: Performed By: #### Nydia ELLER MG, CMP ####[facility] Dqxicisury[address] [place] [address]Dr. Nahed Yañez Sodium [Moles/Vol] 136 mmol/L Normal 136-145 [facility] Comment on above: Performed By: #### Nydia ELLER MG, CMP ####[facility] Kgtvtbshrn[address] [place], [place] [address]Dr. Nahed Yañez Urea nitrogen [Mass/Vol] 25.0 mg/dL Critically high 7.0-18.0 [facility] Comment on above: Performed By: #### Nydia ELLER MG, CMP ####[facility] Abjnntkbku[address] [place], [place] [address]Dr. Nahed Yañez Urea nitrogen/Creatinine [Mass ratio] 21.6 mg/mg Normal [facility] Comment on above: Performed By: #### Nydia ELLER MG, CMP ####[facility] [address]fzljrlv[address] [place], [place] [address]Dr. Nahed Yañez THEOPHYLLINEon 08-01-2022 THEOPHYLLINE 17.1 ug/mL Normal 10.0-20.0 [facility] Comment on above: Performed By: #### MG COLE, CMP ####[facility] Mszawqlzhl[address] [place], [place] [address]Dr. Nahed Yañez CBC AUTO DIFFon 07-31-2022 BASO # 0.0 103/ul Normal 0.0-0.1 [facility] Comment on above: Performed By: #### C BC ####[facility] Jtbhbjgpoz[address] [place], [place] [address]Dr. Nahed Yañez Basophils/100 WBC (Bld) 0.2 % Normal 0.2-2.0 [facility] Comment on above: Performed By: #### C BC ####[facility] Hqygyjmrcb[address] [place], [place] [address]Dr. Nahed Yañez EO # 0.0 103/ul Normal 0.0-0.7 [facility] Comment on above: Performed By: #### C BC ####[facility] [address]rexhngl[address] [place] [phone]. Nahed Yañez Eosinophils/100 WBC (Bld) 0.0 % Critically low 0.9-7.0 [facility] Comment on above: Performed By: #### C BC ####[facility] Hwnqgewvum38[address] [place] [address]Dr. Nahed Yañez Erythrocyte distribution width (RBC) [Ratio] 14.2 % Normal 11.0-15.0 [facility] Comment on above: Performed By: #### C BC ####[facility] Wzuvtxydws[address] [place], [place] [address]Dr. Nahed Yañez Hematocrit (Bld) [Volume fraction] 36.0 % Normal 36.0-48.0 [facility] Comment on above: Performed By: #### C BC ####[facility] [address]shoxfkskz[address] [place], [place] [address]Dr. Nahed Yañez Hemoglobin (Bld) [Mass/Vol] 11.4 g/dL Critically low 12.0-16.0 [facility] Comment on above: Performed By: #### C BC ####[facility] Yltm[address]apca[address] [place], [place] [address]Dr. Nahed Yañez IG # 0.21 10e3/ul Critically high 0.00-0.03 [facility] Comment on above: Performed By: #### C BC ####[facility] Yybmtcpnbz68[address] [place] [phone]. Nahed Yañez IG % 1.8 % Critically high 0.0-0.5 [facility] Comment on above: Performed By: #### C BC ####[facility] Ttzzlbrqkv[address] [place], [place] [address]Dr. Nahed Yañez LYMPH # 1.3 103/ul Normal 1.2-3.8 [facility] Comment on above: Performed By: #### C BC ####[facility] [address]ngnpgutr[address] [place], [place] [address]Dr. Nahed Yañze Lymphocytes/100 WBC (Bld) 11.2 % Critically low 20.5-60.0 [facility] Comment on above: Performed By: #### C BC ####[facility] [address]xrmasuvgn[address] [place] [address]Dr. Nahed Yañez MANUAL DIFF REQ NO Normal [facility] Comment on above: Performed By: #### C BC ####[facility] P[address]abmnqvdp[address] [place] [address]Dr. Nahed Yañez MCH (RBC) [Entitic mass] 27.7 pg Normal 26.7-34.0 [facility] Comment on above: Performed By: #### C BC ####[facility] [address]cexfqzgqp[address] [place], [place] [address]Dr. Nahed Yañez MCHC (RBC) [Mass/Vol] 31.7 g/dL Normal 29.9-35.2 [facility] Comment on above: Performed By: #### C BC ####[facility] Uydmqxhggx[address] [place], [place] [address]Dr. Nahed Yañez MCV (RBC) [Entitic vol] 87.6 fL Normal 81.0-99.0 [facility] Comment on above: Performed By: #### C BC ####[facility] Rryamrbwhr[address] [place], [place] [address]Dr. Nahed Yañez MONO # 0.8 103/ul Normal 0.3-0.8 [facility] Comment on above: Performed By: #### C BC ####[facility] Zuemczwbjm[address] [place], [place] [address]Dr. Nahed Yañez Monocytes/100 WBC (Bld) 7.0 % Normal 1.7-12.0 [facility] Comment on above: Performed By: #### C BC ####[facility] [address]zbtskezxm[address] [place], [place] [address]Dr. Nahed Yañez NEUT # 9.2 103/ul Critically high 1.4-6.5 [facility] Comment on above: Performed By: #### C BC ####[facility] Itcrzfneff[address] [place], [place] [address]Dr. Nahed Yañez Neutrophils/100 WBC (Bld) 79.8 % Critically high 43.0-75.0 [facility] Comment on above: Performed By: #### C BC ####[facility] Wundneaosc[address] [place] [address]Dr. Nahed Yañez Platelet mean volume (Bld) [Entitic vol] 9.8 fL Normal 9.5-13.5 [facility] Comment on above: Performed By: #### C BC ####[facility] Ezlztwmktk[address] [place] [address]Dr. Nahed Yañez PLT 317 103/ul Normal 150-450 [facility] Comment on above: Performed By: #### C BC ####[facility] Wkattlwtor14[address] [place] [address]Dr. Nahed Yañez RBC 4.11 106/ul Critically low 4.20-5.40 [facility] Comment on above: Performed By: #### C BC ####[facility] Einebctmos57[address] [place] [address]Dr. Nahed Yañez WBC 11.5 103/ul Critically high 4.0-11.0 [facility] Comment on above: Performed By: #### C BC ####[facility] Zfpmdffstu[address] [place], [place] [address]Dr. Nahed Yañez MAGNESIUMon 07-31-2022 Magnesium [Mass/Vol] 1.8 mg/dL Normal 1.8-2.4 [facility] Comment on above: Performed By: #### M JUDY Moore, CMP ####[facility] Hrczaqttyx34[address] [place] [address]Dr. Nahed Yañez POINT OF CARE GLUCOSEon -2 0-2022 Glucose [Mass/Vol] 217 mg/dL Critically high 74-106 [facility] Comment on above: Performed By: #### P OCGLUC ####[facility] Bpeaklpymm[address] [place] [address]Dr. Nahed Yañez Glucose [Mass/Vol] 169 mg/dL Critically high 74-106 [facility] Comment on above: Performed By: #### P OCGLUC ####[facility] Dzvhqcpidj94[address] [place] [id number]. Nahed Yañez Glucose [Mass/Vol] 297 mg/dL Critically high 74-106 [facility] Comment on above: Performed By: #### P OCGLUC ####[facility] Hnsymvecya98[address] [place] [phone]. Nahed Yañez Glucose [Mass/Vol] 233 mg/dL Critically high 74-106 [facility] Comment on above: Performed By: #### P OCGLUC ####[facility] Ksgmdzwwcd550[address] [place] [address]Dr. Nahed Yañez PROF 14(COMP METB)on 023 Albumin [Mass/Vol] 3.0 g/dL Critically low 3.4-5.0 [facility] Comment on above: Performed By: #### JUDY Castro, CMP ####[facility] Nzwdxwmwpa20[address] [place] [address]Dr. Nahed Yañez Albumin/Globulin [Mass ratio] 0.8 {ratio} Normal [facility] Comment on above: Performed By: #### JUDY Castro, CMP ####[facility] Ccgvhsqwrl20[address] [place] [address]Dr. Nahed Yañez ALP [Catalytic activity/Vol] 83 U/L Normal 46-116 [facility] Comment on above: Performed By: #### JUDY Castro, CMP ####[facility] Kxynimttll[address] [place] [address]Dr. Nahed Yañez ALT [Catalytic activity/Vol] 21 U/L Normal 14-59 [facility] Comment on above: Performed By: #### JUDY Castro, CMP ####[facility] Aerdjocgpc7[address] [place] [address]Dr. Nahed Yañez Anion gap [Moles/Vol] 14.8 mmol/L Normal [facility] Comment on above: Performed By: #### JUDY Csatro, CMP ####[facility] Itqrtghyyl0401 [place] [address]Dr. Nahed Yañez AST [Catalytic activity/Vol] 13 U/L Critically low 15-37 [facility] Comment on above: Performed By: #### JUDY Castro CMP ####[facility] Ipxtpigeip[address] [place], [place] [address]Dr. Nahed Yañez Bilirubin [Mass/Vol] 0.2 mg/dL Normal 0.2-1.0 [facility] Comment on above: Performed By: #### JUDY Castro CMP ####[facility] Hjltfpmxge[address] [place], [place] [address]Dr. Nahed Yañez Calcium [Mass/Vol] 9.2 mg/dL Normal 8.5-10.1 [facility] Comment on above: Performed By: #### JUDY Castro, CMP ####[facility] Yspbkjmmyv[address] [place], [place] [address]Dr. Nahed Yañez Chloride [Moles/Vol] 101 mmol/L Normal 98-107 [facility] Comment on above: Performed By: #### JUDY Castro, CMP ####[facility] Rzujlfpqtu[address] [place], [place] [address]Dr. Nahed Yañez CO2 [Moles/Vol] 26.5 mmol/L Normal 21.0-32.0 [facility] Comment on above: Performed By: #### JUDY Castro, CMP ####[facility] Ufpdqkjsua[address] [place], [place] [address]Dr. Nahed Yañez Creatinine [Mass/Vol] 1.04 mg/dL Critically high 0.55-1.02 [facility] Comment on above: Performed By: #### JUDY Castro, CMP ####[facility] Wlgjgxjnns[address] [place], [place] [address]Dr. Nahed Yañez EGFR-AF VINCENTIAN >60 Normal >=60 [facility] Comment on above: Performed By: #### JUDY Castro CMP ####[facility] Csibxnotiz[address] [place], [place] [address]Dr. Nahed Yañez EGFR-NON AF VINCENTIAN 54 mL/min/1.73m2 Critically low >=60 [facility] Comment on above: Performed By: #### JUDY Castro, CMP ####[facility] Wwthkiaymb85[address] [place] [address]Dr. Nahed Yañez Globulin (S) [Mass/Vol] 3.6 g/dL Normal [facility] Comment on above: Performed By: #### JUDY Castro, CMP ####[facility] Ahapuqvmqp61[address] [place] [address]Dr. Nahed Yañez Glucose [Mass/Vol] 171 mg/dL Critically high 74-106 [facility] Comment on above: Performed By: #### JUDY Castro, CMP ####[facility] Obylftdbmk[address] [place], [place] [address]Dr. Rosemarieashley Yañez Potassium [Moles/Vol] 3.3 mmol/L Critically low 3.5-5.1 [facility] Comment on above: Performed By: #### JUDY Castro CMP ####[facility] Akebgwdkff[address] [place], [place] [address]Dr. Nahed Yañez Protein [Mass/Vol] 6.6 g/dL Normal 6.4-8.2 [facility] Comment on above: Performed By: #### JUDY Castro CMP ####[facility] Egenxfteai69[address] [place], [place] [address]Dr. Nahed Otilio Sodium [Moles/Vol] 139 mmol/L Normal 136-145 [facility] Comment on above: Performed By: #### JUDY Castro, CMP ####[facility] Ejpzxlydxy[address] [place], [place] [address]Dr. Nahed Otilio Urea nitrogen [Mass/Vol] 23.0 mg/dL Critically high 7.0-18.0 [facility] Comment on above: Performed By: #### JUDY Castro, CMP ####[facility] Anlxtolabc[address] [place], [place] [address]Dr. Rosemarieashley Otilio Urea nitrogen/Creatinine [Mass ratio] 22.1 mg/mg Normal [facility] Comment on above: Performed By: #### JUDY Castro CMP ####[facility] Gtjcbaquvf[address] [place], [place] [address]Dr. Nahed Yañez THEOPHYLLINEon 07-31-2022 THEOPHYLLINE 14.2 ug/mL Normal 10.0-20.0 [facility] Comment on above: Performed By: #### M JUDY Moore, [facility] ####[facility] Lvdvgvzcqa[address] [place] [address]Dr. Nahed Yañez BLOOD CULTURE ID PANELon A. baumannii Not detected Normal NOT DETECTED [facility] Comment on above: Performed By: #### B CID2 ####[facility] Reieeiqdhp[address] [place] [address]Dr. Nahed Yañez Bacteriodes fragilis Not detected Normal NOT DETECTED [facility] Comment on above: Performed By: #### B CID2 ####[facility] Nljftmolxt[address] [place], [place] [address]Dr. Nahed Yañez BCID CONTROLS PASSED Normal [facility] Comment on above: Performed By: #### B CID2 ####[facility] Qcyecgnywz39[address] [place] [address]Dr. Rosemarieashley Otilio BCIDBTHD BLOOD CULTURE BOTTLE INFORMATION Normal [facility] Comment on above: Performed By: #### B CID2 ####[facility] Uxznvobvlf42[address] [place] [address]Dr. Yiashley Yañez BCIDHD1 ANTIMICROBIAL RESISTANCE GENES Normal [facility] Comment on above: Performed By: #### B CID2 ####[facility] Eugluzamji[address] [place] [address]Dr. Nahed Yañez BCIDHD2 SEE BELOW Normal [facility] Comment on above: Result Comment: Note : Antimicrobial resitance can occur via multiple mechanisms. A Not Detected result for the [employer] antomicrobial resistance gene assays does not indicate antimicrobial susceptibility. Subculturing is required for species identification and susceptibility testing of isolates. Performed By: #### B CID2 ####[facility] [address]uklll[address] [place], [place] [address]Dr. Nahed Yañez BCIDHD[address] [facility] Comment on above: Performed By: #### B CID2 ####[facility] Rgbkwkfdfy[address] [place], [place] [address]Dr. Nahed Yañez BCIDHD[address] [facility] Comment on above: Performed By: #### B CID2 ####[facility] Ysjxeuvfrz025[address] [place] [address]Dr. Nahed Yañez BCIDHD5 YEAST Normal [facility] Comment on above: Performed By: #### B CID2 ####[facility] Qezvpwhbhg9082 [place] [address]Dr. Yilan Yañez Bottle Set: Set 2 Normal [facility] Comment on above: Performed By: #### B CID2 ####[facility] Mkuszzusuc[address] [place], [place] [address]Dr. Nahed Yañez Bottle: Pediatric Normal [facility] Comment on above: Performed By: #### B CID2 ####[facility] Qwnqlyrjca[address] [place], [place] [address]Dr. Nahed Yañez C. neoformans/gattii Not detected Normal NOT DETECTED [facility] Comment on above: Performed By: #### B CID2 ####[facility] Ftdemeqtlx[address] [place], [place] [address]Dr. Yiashley Yañez Sil albicans Not detected Normal NOT DETECTED [facility] Comment on above: Performed By: #### B CID2 ####[facility] Vfjnxkphnw[address] [place], [place] [address]Dr. Nahed Yañez Sil auris Not detected Normal NOT DETECTED [facility] Comment on above: Performed By: #### B CID2 ####[facility] K[address]xhsmvfn[address] [place], [place] [address]Dr. Yiashley Yañez Sil glabrata Not detected Normal NOT DETECTED [facility] Comment on above: Performed By: #### B CID2 ####[facility] Hoxonkypfj[address] [place] [address]Dr. Yiashley Yañez Sil Krusei Not detected Normal NOT DETECTED [facility] Comment on above: Performed By: #### B CID2 ####[facility] Jwotimgfwg[address] [place] [address]Dr. Yiashley Yañez Sil Parapsilosis Not detected Normal NOT DETECTED [facility] Comment on above: Performed By: #### B CID2 ####[facility] [address]pttkufvc[address] [place], [place] [address]Dr. Nahed Yañez Sil Tropicalis Not detected Normal NOT DETECTED [facility] Comment on above: Performed By: #### B CID2 ####[facility] Rjfngtkjuw[address] [place], [place] [address]Dr. Nahed Yañez CTX-M Resistant Gene Not Applicable Normal NOT DETECTE D [facility] Comment on above: Performed By: #### B CID2 ####[facility] Gxdekucipd[address] [place], [place] [address]Dr. Nahed Yañez E. Cloacae complex Not detected Normal NOT DETECTED [facility] Comment on above: Performed By: #### B CID2 ####[facility] Kxcpmgzntg[address] [place], [place] [address]Dr. Nahed Yañez E. faecalis Not detected Normal NOT DETECTED [facility] Comment on above: Performed By: #### B CID2 ####[facility] Dxehvhncwp[address] [place], [place] [address]Dr. Nahed Yañez E. faecium Not detected Normal NOT DETECTED [facility] Comment on above: Performed By: #### B CID2 ####[facility] Rhusfzwvzs[address] [place], [place] [address]Dr. Nahed Yañez Enterobacteriaceae Not detected Normal NOT DETECTED [facility] Comment on above: Performed By: #### B CID2 ####[facility] Kwuiaxzlkb[address] [place], [place] [address]Dr. Nahed Yañez Escherichia coli Not detected Normal NOT DETECTED [facility] Comment on above: Performed By: #### B CID2 ####[facility] [address]wczfxbrx[address] [place], [place] [address]Dr. Nahed Yañez H. influenzae Not detected Normal NOT DETECTED [facility] Comment on above: Performed By: #### B CID2 ####[facility] [address]emegcbmv[address] [place], [place] [address]Dr. aNhed Yañez IMP Resistant Gene Not Applicable Normal NOT DETECTED [facility] Comment on above: Performed By: #### B CID2 ####[facility] [address]vfoihfiu[address] [place], [place] [address]Dr. Nahed Yañez K. oxytoca Not detected Normal NOT DETECTED [facility] Comment on above: Performed By: #### B CID2 ####[facility] Dosxwidcru[address] [place], [place] [address]Dr. Nahed Otilio K. pneumoniae Not detected Normal NOT DETECTED [facility] Comment on above: Performed By: #### B CID2 ####[facility] Lunqdodmvt[address] [place], [place] [address]Dr. Nahed Otilio Klebsiella aerogenes Not detected Normal NOT DETECTED [facility] Comment on above: Performed By: #### B CID2 ####[facility] Cnmutkvhhv[address] [place], [place] [address]Dr. Nahed Yañez KPC Resistant Gene Not detected Normal NOT DETECTED [facility] Comment on above: Performed By: #### B CID2 ####[facility] Yrfgbdwugs8150[address] [place], [place] [address]Dr. Nahed Yañez List. monocytogenes Not detected Normal NOT DETECTED [facility] Comment on above: Performed By: #### B CID2 ####[facility] Iolrffkwxq5739[address] [place], [place] [address]Dr. Rosemarieashley Otilio Mcr-1 Resistant Gene Not Applicable Normal NOT DETECTE D [facility] Comment on above: Performed By: #### B CID2 ####[facility] Mxtpjjxexp1512[address] [place], [place] [address]Dr. Rosemarielan Otilio mecA/C Not Applicable Normal NOT DETECTED [facility] Comment on above: Performed By: #### B CID2 ####[facility] Iitddivfqd1222[address] [place], [place] [address]Dr. Rosemarieashley Otilio mecA/C MREJ Not Applicable Normal NOT DETECTED The [facility] Comment on above: Performed By: #### B CID2 ####[facility] Otsistabtu[address] [place], [place] [address]Dr. Nahed Yañez N. meningitidis Not detected Normal NOT DETECTED The [facility] Comment on above: Performed By: #### B CID2 ####[facility] Lyrnqmrcbg3868[address] [place], [place] [address]Dr. Nahed Yañez NDM Resistant Gene Not Applicable Normal NOT DETECTED The [facility] Comment on above: Performed By: #### B CID2 ####[facility] Jhkgoeynmg9506[address] [place], [place] [address]Dr. Nahed Yañez Oxa-48-like Not Applicable Normal NOT DETECTED [facility] Comment on above: Performed By: #### B CID2 ####[facility] Tseickbgxd345[address] [place], [place] [address]Dr. Rosemarieashley Yañez Proteus Not detected Normal NOT DETECTED [facility] Comment on above: Performed By: #### B CID2 ####[facility] Vczduilgfd6867[address] [place], [place] [address]Dr. Nahed Yañez Pseud. aeruginosa Not detected Normal NOT DETECTED The [facility] Comment on above: Performed By: #### B CID2 ####[facility] Nowhtydils9556[address] [place], [place] [address]Dr. Nahed Yañez S. maltophilia Not detected Normal NOT DETECTED The [facility] Comment on above: Performed By: #### B CID2 ####[facility] Wwgdmhqohz5627[address] [place], [place] [address]Dr. Rosemarieashley Yañez Salmonella Not detected Normal NOT DETECTED [facility] Comment on above: Performed By: #### B CID2 ####[facility] Vqqgomhbst7674[address] [place], [place] [address]Dr. Nahed Yañez Seratia marcescens Not detected Normal NOT DETECTED [facility] Comment on above: Performed By: #### B CID2 ####[facility] Kegolgsafm7035[address] [place], [place] [address]Dr. Nahed Yañez Site: R AC Normal [facility] Comment on above: Performed By: #### B CID2 ####[facility] Jhmkxgttyb206[address] [place], [place] [address]Dr. Nahed Yañez Staph. aureus Not detected Normal NOT DETECTED The [facility] Comment on above: Performed By: #### B CID2 ####[facility] Cetqyzqxel[address] [place], [place] [address]Dr. Nahed Yañez Staph. epidermidis Not detected Normal NOT DETECTED [facility] Comment on above: Performed By: #### B CID2 ####[facility] Xmfgwlftcn5268[address] [place], [place] [address]Dr. Nahed Yañez Staph. lugdunensis Not detected Normal NOT DETECTED [facility] Comment on above: Performed By: #### B CID2 ####[facility] Nntllrtlws1470[address] [place], [place] [address]Dr. Nahed Yañez Staphylococcus Detected Critically abnormal NOT DETECTED The [facility] Comment on above: Performed By: #### B CID2 ####[facility] Wwfvlywtfw7196[address] [place], [place] [address]Dr. Nahed Yañez Strep. agalactiae Not detected Normal NOT DETECTED [facility] Comment on above: Performed By: #### B CID2 ####[facility] Xquhfduoda175[address] [place], [place] [address]Dr. Nahed Yañez Strep. pneumoniae Not detected Normal NOT DETECTED [facility] Comment on above: Performed By: #### B CID2 ####[facility] Eqjsofuvit5572[address] [place], [place] [address]Dr. Nahde Yañez Strep. pyogenes Not detected Normal NOT DETECTED [facility] Comment on above: Performed By: #### B CID2 ####[facility] Gmabfragzx5726[address] [place], [place] [address]Dr. Nahed Yañez Streptococcus Not detected Normal NOT DETECTED [facility] Comment on above: Performed By: #### B CID2 ####[facility] Fsimrdxrle262[address] [place], [place] [address]Dr. Nahed Yañez Tucker/B Resist. Gene Not detected Normal NOT DETECTED [facility] Comment on above: Performed By: #### B CID2 ####[facility] Xpflvaocsn350[address] [place], [place] [address]Dr. Nahed Yañez VIM Resistant Gene Not Applicable Normal NOT DETECTED The [facility] Comment on above: Performed By: #### B CID2 ####[facility] Dcasazcupn6312[address] [place], [place] [address]Dr. Nahed Yañez CARDIAC FRANCISCO 3-6on 3 CK [Catalytic activity/Vol] 25 U/L Critically low 26-192 [facility] Comment on above: Performed By: #### C MREP ####[facility] Pdyrkqdjbc2[address] [place] [phone]. Nahed Yañez CK.MB [Mass/Vol] ng/mL Normal <=3.60 The [facility] Comment on above: Performed By: #### C MREP ####[facility] Qjzllcixqz2642 [place] [phone]. Nahed Yañez HSTROP 35.8 pg/mL Normal 4.0-51.3 The [facility] Comment on above: Result Comment: CUT- OFF POINTS HAVE BEEN ESTABLISHED BASED ON THE FOURTH UNIVERSAL DEFINITIONS OF MYOCARDIALINFARCTION. THE UPPER REFERENCE LIMIT (URL) OF TROPONIN, DEFINED THE 99TH PERCENTILE OFcTnI DISTRIBUTION IN A REFERENCE POPULATION, HAS BEEN CONFIRMED THE DECISION THRESHOLDFOR [place] DIAGNOSIS. Performed By: #### C MREP ####[facility] [address]ztktnp[address] [place] [address]Dr. Nahed Yañez CK [Catalytic activity/Vol] 28 U/L Normal 26-192 [facility] Comment on above: Performed By: #### C MREP ####[facility] Qfejdbdtrj7353 [place] [id number]. Nahed Yañez CK.MB [Mass/Vol] ng/mL Normal <=3.60 The [facility] Comment on above: Performed By: #### C MREP ####[facility] Rcpxnoaejn6[address] [place] [address]Dr. Nahed Yañez HSTROP 36.8 pg/mL Normal 4.0-51.3 The [facility] Comment on above: Result Comment: CUT- OFF POINTS HAVE BEEN ESTABLISHED BASED ON THE FOURTH UNIVERSAL DEFINITIONS OF MYOCARDIALINFARCTION. THE UPPER REFERENCE LIMIT (URL) OF TROPONIN, DEFINED THE 99TH PERCENTILE OFcTnI DISTRIBUTION IN A REFERENCE POPULATION, HAS BEEN CONFIRMED THE DECISION THRESHOLDFOR [place] DIAGNOSIS. Performed By: #### C MREP ####[facility] Yxkfzfsxcd68[address] [place] [address]Dr. Nahed Yañez CBC AUTO DIFFon 07-30-2022 BASO # 0.0 103/ul Normal 0.0-0.1 [facility] Comment on above: Performed By: #### C BC ####[facility] Nqfgrxihac9937 [place] [phone]. Nahed Yañez Basophils/100 WBC (Bld) 0.1 % Critically low 0.2-2.0 [facility] Comment on above: Performed By: #### C BC ####[facility] Grirxdmxvz8842 [place] [phone]. Nahed Yañez EO # 0.0 103/ul Normal 0.0-0.7 [facility] Comment on above: Performed By: #### C BC ####[facility] Rzapegmzvv28[address] [place] [address]Dr. Nahed Yañez Eosinophils/100 WBC (Bld) 0.0 % Critically low 0.9-7.0 [facility] Comment on above: Performed By: #### C BC ####[facility] Phrypaufaf4099[address] [place], [place] [address]Dr. Nahed Yañez Erythrocyte distribution width (RBC) [Ratio] 14.4 % Normal 11.0-15.0 [facility] Comment on above: Performed By: #### C BC ####[facility] Vwhxhsytrz[address] [place], [place] [address]Dr. Nahed Yañez Hematocrit (Bld) [Volume fraction] 37.7 % Normal 36.0-48.0 [facility] Comment on above: Performed By: #### C BC ####[facility] Targlfwnyz[address] [place], [place] [address]Dr. Nahed Yañez Hemoglobin (Bld) [Mass/Vol] 12.1 g/dL Normal 12.0-16.0 [facility] Comment on above: Performed By: #### C BC ####[facility] Mzxhlaaqcs43[address] [place], [place] [address]Dr. Nahed Yañez IG # 0.07 10e3/ul Critically high 0.00-0.03 The [facility] Comment on above: Performed By: #### C BC ####[facility] Luoyedigjn[address] [place], [place] [address]Dr. Nahed Yañez IG % 0.5 % Normal 0.0-0.5 The [facility] Comment on above: Performed By: #### C BC ####[facility] Odjcrweoxm[address] [place] [phone]. Nahed Yañez LYMPH # 1.0 103/ul Critically low 1.2-3.8 The [facility] Comment on above: Performed By: #### C BC ####[facility] Klulrtzqxv3705 [place] [phone]. Nahed Yañez Lymphocytes/100 WBC (Bld) 7.6 % Critically low 20.5-60.0 [facility] Comment on above: Performed By: #### C BC ####[facility] Vqdqzupcxa5474 [place] [phone]. Nahed Yañez MANUAL DIFF REQ NO Normal [facility] Comment on above: Performed By: #### C BC ####[facility] Giddzmrirf29[address] [place] [phone]. Nahed Yañez MCH (RBC) [Entitic mass] 28.8 pg Normal 26.7-34.0 [facility] Comment on above: Performed By: #### C BC ####[facility] Ivgcqlrtob2737 [place] [phone]. Nahed Yañez MCHC (RBC) [Mass/Vol] 32.1 g/dL Normal 29.9-35.2 [facility] Comment on above: Performed By: #### C BC ####[facility] Gzgkwrcxok4437 [place] [phone] Yañez MCV (RBC) [Entitic vol] 89.8 fL Normal 81.0-99.0 [facility] Comment on above: Performed By: #### C BC ####[facility] Wyuhhnfogu8838 [place] [phone] Yañez MONO # 0.2 103/ul Critically low 0.3-0.8 [facility] Comment on above: Performed By: #### C BC ####[facility] Unjjruqpni3295 [place] [phone]. Nahed Yañez Monocytes/100 WBC (Bld) 1.5 % Critically low 1.7-12.0 The [facility] Comment on above: Performed By: #### C BC ####[facility] Jswacjdhsk0702 [place] [phone]. Nahed Yañez NEUT # 11.7 103/ul Critically high 1.4-6.5 [facility] Comment on above: Performed By: #### C BC ####[facility] Zrjwnwtpwb8787 [place] [phone]. Nahed Yañez Neutrophils/100 WBC (Bld) 90.3 % Critically high 43.0-75.0 [facility] Comment on above: Performed By: #### C BC ####[facility] Jddastunqm4414 [place] [phone]. Nahed Yañez Platelet mean volume (Bld) [Entitic vol] 9.9 fL Normal 9.5-13.5 [facility] Comment on above: Performed By: #### C BC ####[facility] Yp[address]fjvar[address] [place] [address]Dr. Nahed Yañez PLT 319 103/ul Normal 150-450 [facility] Comment on above: Performed By: #### C BC ####[facility] Qavvuspxxy[address] [place], [place] [address]Dr. Nahed Yañez RBC 4.20 106/ul Normal 4.20-5.40 [facility] Comment on above: Performed By: #### C BC ####[facility] Joaamlcmhr[address] [place], [place] [address]Dr. Nahed Yañez WBC 13.0 103/ul Critically high 4.0-11.0 The [facility] Comment on above: Performed By: #### C BC ####[facility] Oqppiyutgr7[address] [place] [phone]. Nahed Yañez CULTURE BLOODon 07-30-2022 Microscopic examination of blood, culture Culture Observations: NO GROWTH AT 5 DAYS. Normal The [facility] Comment on above: Performed By: #### B LDCX1 ####[facility] Jfnhjtdxhg9578 [place] [phone]. Nahed Yañez CULTURE SPUTUMon 07-30-2022 CULTURE SPUTUM Culture Observations : NORMAL RESPIRATORY MIGUEL. Normal The [facility] Comment on above: Performed By: #### S PUTCX ####[facility] Fc[address]wyhv[address] [place] [address]Dr. Nahed Yañez CULTURE URINEon 07-30-2022 CULTURE URINE Culture Observations : MODERATE GROWTH OF MIXED GENITAL MIGUEL. NO POTENTIAL PATHOGENS SEEN. Normal The [facility] Comment on above: Performed By: #### U RCX ####[facility] Mhvoyahhgg[address] [place] [address]Dr. Nahed Yañez Covid-19 PCR (CVDTB)on 07-12 SARS-CoV-2 (COVID-19) RNA MIRNA+probe Ql (Unsp spec) Not detected Normal NOT DETECTED [facility] Comment on above: Result Comment: When [...] for this test is supported by the [employer] of [employer] Service's declaration that [...] be used). Performed By: #### C VDTBH ####[facility] Ttyctsdvzf05[address] [place] [phone]. Nahed Yañez ER URINE PROFILEon 3 Bilirubin Ql (U) Negative Normal NEGATIVE The [facility] Comment on above: Performed By: #### E YARELIS ALCARAZ ####[facility] Gdcjddaeth1741 [place] [phone]. Nahed Yañez Clarity (U) CLEAR Normal CLEAR [facility] Comment on above: Performed By: #### E YARELIS ALCARAZ ####[facility] Cwdepqvzao5[address] [place] [address]Dr. Nahed Yañez Color (U) LT. YELLOW Normal YELLOW [facility] Comment on above: Performed By: #### NUNU DOVERO ####[facility] Fjncsubkfc8[address] [place] [address]Dr. Nahed Yañez ERUAHD A micrscopic examination will be performed if indicated. Normal [facility] Comment on above: Performed By: #### NUNU DOVERO ####[facility] Fsqxceqsef3184 [place] [address]Dr. Nahed Yañez Glucose Ql (U) 500 mg/dl Abnormal NEGATIVE The [facility] Comment on above: Performed By: #### NUNU DOVERO ####[facility] Wkmfwkftuy65[address] [place], [place] [address]Dr. Nahed Yañez Hemoglobin Ql (U) Negative Normal NEGATIVE The [facility] Comment on above: Performed By: #### NUNU DOVERO ####[facility] Wmigpwvneq8[address] [place], [place] [address]Dr. Nahed Yañez Ketones Ql (U) Negative Normal NEGATIVE [facility] Comment on above: Performed By: #### YARELIS DOVE ####[facility] Zfgjynyrbb[address] [place], [place] [address]Dr. Nahed Yañez LEUKOCYTES TRACE Abnormal NEGATIVE [facility] Comment on above: Performed By: #### NUNU DOVERO ####[facility] Prytppfymw39[address] [place], [place] [address]Dr. Nahed Yañez Nitrite Ql (U) Negative Normal NEGATIVE [facility] Comment on above: Performed By: #### NUNU DOVERO ####[facility] Rbgnaxctvg1826[address] [place], [place] [address]Dr. Nahed Yañez pH (U) 6.0 [pH] Normal 5-9 [facility] Comment on above: Performed By: #### YARELIS DOVE ####[facility] Oayaktytzg19[address] [place], [place] [address]Dr. Nahed Yañez SPEC GRAVITY >=1.030 Abnormal 1.005-<=1.[address] [facility] Comment on above: Performed By: #### YARELIS DOVE ####[facility] Bqznubwipt3[address] [place], [place] [address]Dr. Nahed Yañez UA PROTEIN Negative Normal NEGATIVE/ TRACE [facility] Comment on above: Performed By: #### YARELIS DOVE ####[facility] Xbqjmxhkcr64[address] [place], [place] [address]Dr. Nahed Yañez UR MICRO IND INDICATED Normal [facility] Comment on above: Performed By: #### YARELIS DOVE ####[facility] Sefsxwhxeb6[address] [place], [place] [address]Dr. Nahed Yañez Urobilinogen Qn (U) 0.2 {Alem'U}/dL Normal 0.2 - 1. 0 [facility] Comment on above: Performed By: #### YRAELIS DOVE ####[facility] Tsmvautfke[address] [place], [place] [address]Dr. Nahed Yañez INFLUENZA A AND B AGon 07-30 INFLUANEGH SEE BELOW Normal [facility] Comment on above: Result Comment: Nega tive for Flu A protein angiten. Infection due to Flu A cannot be ruled out. Flu A angiten in the sample may be below the detection limit of the test. Performed By: #### I NFLUAB ####[facility] Vdjrvahlqt85[address] [place], [place] [address]Dr. Nahed Yañez INFLUBNEGH SEE BELOW Normal [facility] Comment on above: Result Comment: Nega tive for Flu B protein antigen. Infection due to Flu B cannot be ruled out. Flu B antigen in the sample may be below the detection limit of the test. Performed By: #### I NFLUAB ####[facility] Kqeqldhjeo[address] [place], [place] [address]Dr. Nahed Yañez INFLUENZA A AG Negative Normal NEGATIVE SEE COMMENT [facility] Comment on above: Performed By: #### I NFLUAB ####[facility] Qbgbkjzkpn168[address] [place], [place] [address]Dr. Nahed Yañez INFLUENZA B AG Negative Normal NEGATIVE SEE COMMENT [facility] Comment on above: Performed By: #### I NFLUAB ####[facility] Xflwfdvcxu5[address] [place], [place] [address]Dr. Nahed Yañez LACTATE/LACTIC ACIDon 2022 Lactate [Moles/Vol] 2.5 mmol/L Critically high 0.4-2.0 [facility] Comment on above: Performed By: #### L ACT ####[facility] Xwhpsoaywh[address] [place], [place] [address]Dr. Nahed Yañez Lactate [Moles/Vol] 3.3 mmol/L Critically high 0.4-2.0 [facility] Comment on above: Performed By: #### L ACT ####[facility] Xccqwpnjiu89[address] [place], [place] [address]Dr. Nahed Yañez Lactate [Moles/Vol] 2.7 mmol/L Critically high 0.4-2.0 [facility] Comment on above: Performed By: #### L ACT ####[facility] Fxhvsyznlr[address] [place], [place] [address]Dr. Nahed Yañez Lactate [Moles/Vol] 2.8 mmol/L Critically high 0.4-2.0 [facility] Comment on above: Performed By: #### L ACT ####[facility] Vliexqosaa[address] [place], [place] [address]Dr. Nahed Yañez MAGNESIUMon 07-30-2022 Magnesium [Mass/Vol] 1.9 mg/dL Normal 1.8-2.4 [facility] Comment on above: Performed By: #### M G, CMP ####[facility] Araezdonfn[address] [place], [place] [address]Dr. Nahed Yañez POINT OF CARE GLUCOSEon 07-12 Glucose [Mass/Vol] 220 mg/dL Critically high -106 [facility] Comment on above: Performed By: #### P OCGLUC ####[facility] Fsumygajer[address] [place], [place] [address]Dr. Nahed Yañez Glucose [Mass/Vol] 162 mg/dL Critically high 74-106 [facility] Comment on above: Result Comment: Kaycee clemons Meter Performed By: #### P OCGLUC ####[facility] Othgxkxobc46[address] [place] [address]Dr. Nahed Yañez PROF 14(COMP METB)on 023 Albumin [Mass/Vol] 2.9 g/dL Critically low 3.4-5.0 [facility] Comment on above: Performed By: #### Pablo Moore, CMP ####[facility] Brjkkkhvtj67[address] [place], [place] [address]Dr. Nahed Yañez Albumin/Globulin [Mass ratio] 0.8 {ratio} Normal [facility] Comment on above: Performed By: #### Pablo Moore, CMP ####[facility] Ltjdyoapts[address] [place], [place] [address]Dr. Nahed Yañez ALP [Catalytic activity/Vol] 94 U/L Normal 46-116 [facility] Comment on above: Performed By: #### Pablo Moore, CMP ####[facility] Nhdzhwapbq[address] [place], [place] [address]Dr. Nahed Yañez ALT [Catalytic activity/Vol] 22 U/L Normal 14-59 [facility] Comment on above: Performed By: #### Pablo Moore, CMP ####[facility] Vfkizvgikz[address] [place], [place] [address]Dr. Nahed Yañez Anion gap [Moles/Vol] 12.4 mmol/L Normal [facility] Comment on above: Performed By: #### Pablo Moore, CMP ####[facility] Odcaidyoqf8[address] [place], [place] [address]Dr. Nahed Yañez AST [Catalytic activity/Vol] 18 U/L Normal 15-37 [facility] Comment on above: Performed By: #### Pablo Moore, CMP ####[facility] Fvlnxotmlm[address] [place], [place] [address]Dr. Nahed Yañez Bilirubin [Mass/Vol] 0.1 mg/dL Critically low 0.2-1.0 [facility] Comment on above: Performed By: #### Pablo Moore, CMP ####[facility] Ozylucijrz[address] [place], [place] [address]Dr. Nahed Yañez Calcium [Mass/Vol] 8.9 mg/dL Normal 8.5-10.1 [facility] Comment on above: Performed By: #### M Teresa, CMP ####[facility] Heenwxkahe[address] [place] [address]Dr. Nahed Yañez Chloride [Moles/Vol] 99 mmol/L Normal 98-107 [facility] Comment on above: Performed By: #### M G, CMP ####[facility] Uohoyhngdk22[address] [place] [address]Dr. Nahed Yañez CO2 [Moles/Vol] 26.0 mmol/L Normal 21.0-32.0 [facility] Comment on above: Performed By: #### Pablo Moore, CMP ####[facility] Cgxooffjom[address] [place], [place] [address]Dr. Nahed Yañez Creatinine [Mass/Vol] 1.16 mg/dL Critically high 0.55-1.02 [facility] Comment on above: Performed By: #### Pablo Moore, CMP ####[facility] Gpfybwkcmi[address] [place], [place] [address]Dr. Nahed Otilio EGFR-AF VINCENTIAN 58 mL/min/1.73m2 Critically low >=60 [facility] Comment on above: Performed By: #### Pablo Moore, CMP ####[facility] Wdihiazfhl[address] [place], [place] [address]Dr. Nahed Otilio EGFR-NON AF VINCENTIAN 47 mL/min/1.73m2 Critically low >=60 [facility] Comment on above: Performed By: #### Pablo Moore, CMP ####[facility] Jqiemibbkb028[address] [place] [address]Dr. Nahed Otilio Globulin (S) [Mass/Vol] 3.7 g/dL Normal [facility] Comment on above: Performed By: #### Pablo Moore, CMP ####[facility] Fbzvwfjaug9220 [place] [address]Dr. Nahed Yañez Glucose [Mass/Vol] 267 mg/dL Critically high 74-106 [facility] Comment on above: Performed By: #### Pablo Moore, CMP ####[facility] Bcpwbjsgrs13[address] [place] [address]Dr. Nahed Yañez Potassium [Moles/Vol] 4.4 mmol/L Normal 3.5-5.1 [facility] Comment on above: Performed By: #### Pablo G, CMP ####[facility] Jimslbqlko[address] [place], [place] [address]Dr. Nahed Yañez Protein [Mass/Vol] 6.6 g/dL Normal 6.4-8.2 [facility] Comment on above: Performed By: #### Pablo Moore, CMP ####[facility] Hcllwmcpxd[address] [place] [address]Dr. Nahed Yañez Sodium [Moles/Vol] 133 mmol/L Critically low 136-145 Th [facility] Comment on above: Performed By: #### Pablo Moore, CMP ####[facility] Phgcaredrt1562[address] [place], [place] [address]Dr. Nahed Yañez Urea nitrogen [Mass/Vol] 33.0 mg/dL Critically high 7.0-18.0 [facility] Comment on above: Performed By: #### Pablo Moore, CMP ####[facility] Xnyqtgcmst05[address] [place], [place] [address]Dr. Nahed Yañez Urea nitrogen/Creatinine [Mass ratio] 28.4 mg/mg Normal [facility] Comment on above: Performed By: #### Pablo Moore, CMP ####[facility] Vhyomiryur17[address] [place], [place] [address]Dr. Nahed Yañez SPUTUM GRAM STAINon 07-31-[address] [facility] Comment on above: Performed By: #### S PUTGS ####[facility] Egpxiomldg[address] [place], [place] [address]Dr. Nahed Yañez DIPHTHEROIDS Normal [facility] Comment on above: Performed By: #### S PUTGS ####[facility] Uoumwbqzuh[address] [place], [place] [address]Dr. Nahed Yañez EPITHELIALS <[address] [facility] Comment on above: Performed By: #### S PUTGS ####[facility] Sbenliubox[address] [place], [place] [address]Dr. Nahed Yañez FUNGAL ELEMENTS Normal [facility] Comment on above: Performed By: #### S PUTGS ####[facility] Mcpfbuadty[address] [place] [address]Dr. Nahed Yañez GRAM NEG BACILLI Normal [facility] Comment on above: Performed By: #### S PUTGS ####[facility] Lnqbteijkc79[address] [place] [address]Dr. Nahed Yañez GRAM NEG DIPPLOCOCCI Normal [facility] Comment on above: Performed By: #### S PUTGS ####[facility] Zfnnjmqppp27[address] [place] [address]Dr. Nahed Yañez GRAM POS BACILLI FEW Normal [facility] Comment on above: Performed By: #### S PUTGS ####[facility] Ahbbugfbqd2076 [place] [address]Dr. Nahed Yañez GRAM POSITIVE COCCI FEW Normal The [facility] Comment on above: Performed By: #### S PUTGS ####[facility] Kpeltlaxet[address] [place], [place] [address]Dr. Nahed Yañez WBC (Bld) [#/Vol] 10*3/uL Normal The [facility] Comment on above: Performed By: #### S PUTGS ####[facility] Sjdmjezdka[address] [place], [place] [address]Dr. Nahed Yañez URINE MICROSCOPIC ONLYon BACTERIA SMALL Abnormal NONE SEEN The [facility] Comment on above: Performed By: #### YARELIS DOVE ####[facility] Agqfxcwxss[address] [place] [address]Dr. Nahed Yañez Bacteria identified Cx Nom (U) INDICATED Normal [facility] Comment on above: Performed By: #### NUNU DOVERO ####[facility] Aqxuyuwxkv8[address] [place] [address]Dr. Nahed Yañez CAST NONE SEEN Normal NONE SEEN [facility] Comment on above: Performed By: #### NUNU DOVERO ####[facility] Ywailbbrxe60[address] [place] [address]Dr. Nahed Yañez Crystals LM Nom (Urine sed) NONE SEEN Normal NONE SEEN [facility] Comment on above: Performed By: #### Isidoro ALCARAZ UMICRO ####[facility] Kuknxglaln[address] [place] [address]Dr. Nahed Yañez Epithelial cells LM Ql (Urine sed) FEW Abnormal NONE SEEN /RARE [facility] Comment on above: Performed By: #### Isidoro ALCARAZ UMICRO ####[facility] Qykyioxzub6316 [place] [id number]. Nahed Yañez MUCOUS TRACE Abnormal NONE SEEN The [facility] Comment on above: Performed By: #### Isidoro ALCARAZ UMICRO ####[facility] Jocasjzxfm7206 [place] [id number]. Nahed Yañez RBC 0-2 Normal 0-2 [facility] Comment on above: Performed By: #### Isidoro ALCARAZ UMICRO ####[facility] Fdvyzcfoul4979 [place] [address]Dr. Nahed Yañez WBC 0-2 Abnormal NONE SEEN The [facility] Comment on above: Performed By: #### Isidoro ALCARAZ UMICRO ####[facility] Myhtsfzefn2134 [place] [address]Dr. Nahed Yañez XR CHEST 1 Von 07-30-2022 XR CHEST 1 V Normal [facility] CARDIAC FRANCISCO ADMITon 023 CK [Catalytic activity/Vol] 59 U/L Normal 26-192 [facility] Comment on above: Performed By: #### BLADIMIR SINGH ####[facility] Sxvdrxrlhz026[address] [place] [address]Dr. Nahed Yañez CK.MB [Mass/Vol] 0.59 ng/mL Normal <=3.60 The [facility] Comment on above: Performed By: #### BLADIMIR SINGH ####[facility] Tubvzgbgdl[address] [place], [place] [address]Dr. Nahed Yañez HSTROP 40.7 pg/mL Normal 4.0-51.3 [facility] Comment on above: Result Comment: CUT- OFF POINTS HAVE BEEN ESTABLISHED BASED ON THE FOURTH UNIVERSAL DEFINITIONS OF MYOCARDIALINFARCTION. THE UPPER REFERENCE LIMIT (URL) OF TROPONIN, DEFINED THE 99TH PERCENTILE OFcTnI DISTRIBUTION IN A REFERENCE POPULATION, HAS BEEN CONFIRMED THE DECISION THRESHOLDFOR [place] DIAGNOSIS. Performed By: #### C BLADIMIR AGRAWAL ####[facility] Tfkpcbxbye9[address] [place] [address]Dr. Nahed Yañez ANDRE 89 ng/mL Critically high 9-82 [facility] Comment on above: Performed By: #### C BLADIMIR AGRAWAL ####[facility] Howmrobewh0716 [place] [address]Dr. Nahed Otilio CBC AUTO DIFFon 07-29-2022 BASO # 0.0 103/ul Normal 0.0-0.1 [facility] Comment on above: Performed By: #### C BC ####[facility] Lulaizmlqp[address] [place], [place] [address]Dr. Nahed Yañez Basophils/100 WBC (Bld) 0.1 % Critically low 0.2-2.0 [facility] Comment on above: Performed By: #### C BC ####[facility] Axnmubvvyy5[address] [place], [place] [address]Dr. Nahed Otilio EO # 0.0 103/ul Normal 0.0-0.7 [facility] Comment on above: Performed By: #### C BC ####[facility] Upjmfvpwor4[address] [place], [place] [address]Dr. Nahed Yañez Eosinophils/100 WBC (Bld) 0.0 % Critically low 0.9-7.0 [facility] Comment on above: Performed By: #### C BC ####[facility] Pcqhsktwpi[address] [place], [place] [address]Dr. Nahed Yañez Erythrocyte distribution width (RBC) [Ratio] 14.5 % Normal 11.0-15.0 [facility] Comment on above: Performed By: #### C BC ####[facility] Fhlwcvsbtp[address] [place], [place] [address]Dr. Rosemarieashley Otilio Hematocrit (Bld) [Volume fraction] 42.1 % Normal 36.0-48.0 [facility] Comment on above: Performed By: #### C BC ####[facility] Anyizuacwu[address] [place] [id number]. Nahed Yañez Hemoglobin (Bld) [Mass/Vol] 13.4 g/dL Normal 12.0-16.0 [facility] Comment on above: Performed By: #### C BC ####[facility] Bxbbanhmxz232[address] [place] [address]Dr. Nahed Yañez IG # 0.07 10e3/ul Critically high 0.00-0.03 [facility] Comment on above: Performed By: #### C BC ####[facility] Zhtvpajdla36[address] [place] [address]Dr. Nahed Otilio IG % 0.5 % Normal 0.0-0.5 [facility] Comment on above: Performed By: #### C BC ####[facility] Hjtxvpvfgw6086 [place] [address]Dr. Rosemarieashley Otilio LYMPH # 3.2 103/ul Normal 1.2-3.8 [facility] Comment on above: Performed By: #### C BC ####[facility] Tjxofogfjl3[address] [place], [place] [address]Dr. Nahed Otilio Lymphocytes/100 WBC (Bld) 21.2 % Normal 20.5-60.0 [facility] Comment on above: Performed By: #### C BC ####[facility] Wfyjkkksnm024[address] [place] [address]Dr. Nahed Otilio MANUAL DIFF REQ NO Normal [facility] Comment on above: Performed By: #### C BC ####[facility] Decmkklyny9404 [place] [address]Dr. Nahed Yañez MCH (RBC) [Entitic mass] 28.1 pg Normal 26.7-34.0 [facility] Comment on above: Performed By: #### C BC ####[facility] Mxurpouiff26[address] [place], [place] [address]Dr. Nahed Otilio MCHC (RBC) [Mass/Vol] 31.8 g/dL Normal 29.9-35.2 [facility] Comment on above: Performed By: #### C BC ####[facility] Xszuvpwytm9544[address] [place], [place] [address]Dr. Nahed Otilio MCV (RBC) [Entitic vol] 88.3 fL Normal 81.0-99.0 [facility] Comment on above: Performed By: #### C BC ####[facility] Jmkkabvyoy0874 [place] [address]Dr. Nahed Yañez MONO # 1.0 103/ul Critically high 0.3-0.8 [facility] Comment on above: Performed By: #### C BC ####[facility] Kvxlobrqam4[address] [place] [address]Dr. Nahed Yañez Monocytes/100 WBC (Bld) 6.3 % Normal 1.7-12.0 [facility] Comment on above: Performed By: #### C BC ####[facility] Ynywqrerds1217[address] [place], [place] [address]Dr. Nahed Otilio NEUT # 11.0 103/ul Critically high 1.4-6.5 The [facility] Comment on above: Performed By: #### C BC ####[facility] Qenszjcqgj9[address] [place], [place] [address]Dr. Rsoemarieashley Yañez Neutrophils/100 WBC (Bld) 71.9 % Normal 43.0-75.0 [facility] Comment on above: Performed By: #### C BC ####[facility] Utwkyedmbo[address] [place], [place] [address]Dr. Rosemarieashley Yañez Platelet mean volume (Bld) [Entitic vol] 9.9 fL Normal 9.5-13.5 [facility] Comment on above: Performed By: #### C BC ####[facility] Lfsatilykn67[address] [place], [place] [address]Dr. Rosemarieashley Otilio PLT 385 103/ul Normal 150-450 [facility] Comment on above: Performed By: #### C BC ####[facility] Qmalaxsznq9468[address] [place], [place] [address]Dr. aNhed Yañez RBC 4.77 106/ul Normal 4.20-5.40 [facility] Comment on above: Performed By: #### C BC ####[facility] Khaxwdrten9[address] [place], [place] [address]Dr. Nahed Yañez WBC 15.3 103/ul Critically high 4.0-11.0 The [facility] Comment on above: Performed By: #### C BC ####[facility] Oasdqgtjfy7[address] [place] [address]Dr. Nahed Yañez PROF CHEM 8 (BAS METB)on Anion gap [Moles/Vol] 13.4 mmol/L Normal [facility] Comment on above: Performed By: #### C NGHIA, BMP ####[facility] Fniickanwf55[address] [place] [address]Dr. Nahed Yañez Calcium [Mass/Vol] 9.5 mg/dL Normal 8.5-10.1 [facility] Comment on above: Performed By: #### C NGHIA, BMP ####[facility] Vgsblyezav[address] [place], [place] [address]Dr. Nahed Yañez Chloride [Moles/Vol] 101 mmol/L Normal 98-107 [facility] Comment on above: Performed By: #### Isabell AGRAWAL, BMP ####[facility] Tdatykcdov65[address] [place], [place] [address]Dr. Nahed Yañez CO2 [Moles/Vol] 27.9 mmol/L Normal 21.0-32.0 [facility] Comment on above: Performed By: #### Isabell AGRAWAL, BMP ####[facility] Omytqvxujz8149[address] [place], [place] [address]Dr. Nahed Yañez Creatinine [Mass/Vol] 0.91 mg/dL Normal 0.55-1.02 [facility] Comment on above: Performed By: #### Isabell AGRAWAL, BMP ####[facility] Jhcduzsoga25[address] [place] [address]Dr. Nahed Otilio EGFR-AF VINCENTIAN >60 Normal >=60 [facility] Comment on above: Performed By: #### C NGHIA, BMP ####[facility] Xoanuvnnbc29[address] [place] [address]Dr. Rosemarieashley Otilio EGFR-NON AF VINCENTIAN >60 Normal >=60 [facility] Comment on above: Performed By: #### Isabell AGRAWAL, BMP ####[facility] Ftyfznpsfs3812 [place] [address]Dr. Nahed Yañez Glucose [Mass/Vol] 100 mg/dL Normal 74-106 [facility] Comment on above: Performed By: #### C NGHIA, BMP ####[facility] Ruyujytgpw[address] [place], [place] [address]Dr. Nahed Yañez Potassium [Moles/Vol] 4.3 mmol/L Normal 3.5-5.1 [facility] Comment on above: Result Comment: samp le slightly hemolized Performed By: #### C NGHIA, BMP ####[facility] Xtwdrfoyry[address] [place], [place] [address]Dr. Nahed Yañez Sodium [Moles/Vol] 138 mmol/L Normal 136-145 [facility] Comment on above: Performed By: #### C NGHIA, BMP ####[facility] Byakxtdism4144[address] [place], [place] [address]Dr. Nahed Yañez Urea nitrogen [Mass/Vol] 34.0 mg/dL Critically high 7.0-18.0 [facility] Comment on above: Performed By: #### C NGHIA, BMP ####[facility] Iuxhydhumz355[address] [place], [place] [address]Dr. Nahed Yañez Urea nitrogen/Creatinine [Mass ratio] 37.4 mg/mg Normal [facility] Comment on above: Performed By: #### C NGHIA, BMP ####[facility] Tclcgdvcap[address] [place], [place] [address]Dr. Nahed Yañez BNPon 07-28-2022 Natriuretic peptide B (Bld) [Mass/Vol] 249.0 pg/mL Normal <=900.0 [facility] Comment on above: Performed By: #### B CLIENT PROGRAM MANAGER ####[facility] Ewvyeoixhy8[address] [place], [place] [address]Dr. Nahed Yañez CBC AUTO DIFFon 07-28-2022 BASO # 0.0 103/ul Normal 0.0-0.1 [facility] Comment on above: Performed By: #### C BC ####[facility] Sohgdnkkow[address] [place], [place] [address]Dr. Nahed Yañez Basophils/100 WBC (Bld) 0.1 % Critically low 0.2-2.0 [facility] Comment on above: Performed By: #### C BC ####[facility] Schghhjrts9[address] [place] [address]Dr. Nahed Yañez EO # 0.0 103/ul Normal 0.0-0.7 [facility] Comment on above: Performed By: #### C BC ####[facility] Mhlqvatjon80[address] [place], [place] [address]Dr. Nahed Yañez Eosinophils/100 WBC (Bld) 0.0 % Critically low 0.9-7.0 [facility] Comment on above: Performed By: #### C BC ####[facility] Sinaewovzr74[address] [place], [place] [address]Dr. Nahed Yañez Erythrocyte distribution width (RBC) [Ratio] 14.3 % Normal 11.0-15.0 [facility] Comment on above: Performed By: #### C BC ####[facility] Xhuncaxnvo[address]19[address] [place], [place] [address]Dr. Nahed Yañez Hematocrit (Bld) [Volume fraction] 38.7 % Normal 36.0-48.0 [facility] Comment on above: Performed By: #### C BC ####[facility] Yolymbjaho4332[address] [place], [place] [address]Dr. Nahed Yañez Hemoglobin (Bld) [Mass/Vol] 12.2 g/dL Normal 12.0-16.0 [facility] Comment on above: Performed By: #### C BC ####[facility] Upohvtbgfk6513[address] [place], [place] [address]Dr. Nahed Yañez IG # 0.06 10e3/ul Critically high 0.00-0.03 [facility] Comment on above: Performed By: #### C BC ####[facility] Vwwsbksult[address] [place], [place] [address]Dr. Nahed Yañez IG % 0.5 % Normal 0.0-0.5 [facility] Comment on above: Performed By: #### C BC ####[facility] Gxlwfntlhy[address] [place], [place] [address]Dr. Rosemarieashley Yañez LYMPH # 0.7 103/ul Critically low 1.2-3.8 The [facility] Comment on above: Performed By: #### C BC ####[facility] Ashmggaocf9[address] [place] [address]Dr. Nahed Otilio Lymphocytes/100 WBC (Bld) 5.7 % Critically low 20.5-60.0 [facility] Comment on above: Performed By: #### C BC ####[facility] Mcsclbyzsp5475 [place] [address]Dr. Rosemarieashley Yañez MANUAL DIFF REQ NO Normal [facility] Comment on above: Performed By: #### C BC ####[facility] Shnhglxkyw6873 [place] [address]Dr. Nahed Otilio MCH (RBC) [Entitic mass] 28.2 pg Normal 26.7-34.0 [facility] Comment on above: Performed By: #### C BC ####[facility] Ifeixelmur6898[address] [place], [place] [address]Dr. Nahed Otilio MCHC (RBC) [Mass/Vol] 31.5 g/dL Normal 29.9-35.2 [facility] Comment on above: Performed By: #### C BC ####[facility] Pzlgsrkfly6576 [place] [address]Dr. Nahed Yañez MCV (RBC) [Entitic vol] 89.6 fL Normal 81.0-99.0 [facility] Comment on above: Performed By: #### C BC ####[facility] Vshiqbfwpz9467[address] [place], [place] [address]Dr. Nahed Yañez MONO # 0.3 103/ul Normal 0.3-0.8 [facility] Comment on above: Performed By: #### C BC ####[facility] Emmxkyelof5212[address] [place], [place] [address]Dr. Nahed Yañez Monocytes/100 WBC (Bld) 2.2 % Normal 1.7-12.0 [facility] Comment on above: Performed By: #### C BC ####[facility] Lsovilzkbd[address] [place], [place] [address]Dr. Nahed Yañez NEUT # 11.1 103/ul Critically high 1.4-6.5 [facility] Comment on above: Performed By: #### C BC ####[facility] Xkabzdataw0758 [place] [address]Dr. Nahed Yañez Neutrophils/100 WBC (Bld) 91.5 % Critically high 43.0-75.0 [facility] Comment on above: Performed By: #### C BC ####[facility] Dlcfrtenqv1912 [place] [address]Dr. Nahed Yañez Platelet mean volume (Bld) [Entitic vol] 10.1 fL Normal 9.5-13.5 [facility] Comment on above: Performed By: #### C BC ####[facility] Gujeepbkcp2037 [place] [address]Dr. Nahed Yañez PLT 323 103/ul Normal 150-450 [facility] Comment on above: Performed By: #### C BC ####[facility] Opwsunglfm2854 [place] [address]Dr. Nahed Yañez RBC 4.32 106/ul Normal 4.20-5.40 [facility] Comment on above: Performed By: #### C BC ####[facility] Uympcxdvdk7257 [place] [address]Dr. Nahed Yañez WBC 12.1 103/ul Critically high 4.0-11.0 [facility] Comment on above: Performed By: #### C BC ####[facility] Mrnaratxdx0399 [place] [address]Dr. Nahed Yañez POINT OF CARE GLUCOSEon 03- Glucose [Mass/Vol] 308 mg/dL Critically high 74-106 [facility] Comment on above: Performed By: #### P OCGLUC ####[facility] Zkdlchexiy69[address] [place], [place] [address]Dr. Nahed Yañez Glucose [Mass/Vol] 341 mg/dL Critically high 74-106 [facility] Comment on above: Performed By: #### P OCGLUC ####[facility] Lgbcwtgxhv[address] [place], [place] [address]Dr. Nahed Yañez Glucose [Mass/Vol] 320 mg/dL Critically high 74-106 [facility] Comment on above: Performed By: #### P OCGLUC ####[facility] Xwmkwzqeon8817 [place] [address]Dr. Nahed Yañez PROF 14(COMP METB)on 023 Albumin [Mass/Vol] 3.0 g/dL Critically low 3.4-5.0 [facility] Comment on above: Performed By: #### C MP ####[facility] Ohzexybxhm29[address] [place] [address]Dr. Nahed Yañez Albumin/Globulin [Mass ratio] 0.7 {ratio} Normal [facility] Comment on above: Performed By: #### C MP ####[facility] Wpmtvstnqz[address] [place], [place] [address]Dr. Nahed Yañez ALP [Catalytic activity/Vol] 93 U/L Normal 46-116 [facility] Comment on above: Performed By: #### C MP ####[facility] Ydhxgpbhqo[address] [place], [place] [address]Dr. Nahed Otilio ALT [Catalytic activity/Vol] 15 U/L Normal 14-59 [facility] Comment on above: Performed By: #### C MP ####[facility] Kmyaorolor99[address] [place], [place] [address]Dr. Nahed Otilio Anion gap [Moles/Vol] 13.0 mmol/L Normal [facility] Comment on above: Performed By: #### C MP ####[facility] Bijechwwrv40[address] [place], [place] [address]Dr. Nahed Otilio AST [Catalytic activity/Vol] 11 U/L Critically low 15-37 [facility] Comment on above: Performed By: #### C MP ####[facility] Uztnwlmbgk[address] [place], [place] [address]Dr. Nahed Yañez Bilirubin [Mass/Vol] 0.2 mg/dL Normal 0.2-1.0 [facility] Comment on above: Performed By: #### C MP ####[facility] Jvclbwpscj7580 [place] [address]Dr. Nahed Yañez Calcium [Mass/Vol] 9.6 mg/dL Normal 8.5-10.1 [facility] Comment on above: Performed By: #### C MP ####[facility] Nxxsriqslz6307 [place] [address]Dr. Nahed Yañez Chloride [Moles/Vol] 100 mmol/L Normal 98-107 [facility] Comment on above: Performed By: #### C MP ####[facility] Lmkaimdlfg1414 [place] [address]Dr. Nahed Yañez CO2 [Moles/Vol] 27.3 mmol/L Normal 21.0-32.0 [facility] Comment on above: Performed By: #### C MP ####[facility] Dydyhmkcnz[address] [place], [place] [address]Dr. Nahed Yañez Creatinine [Mass/Vol] 1.19 mg/dL Critically high 0.55-1.02 [facility] Comment on above: Performed By: #### C MP ####[facility] Uzuqytqfuh[address] [place], [place] [address]Dr. Nahed Yañez EGFR-AF VINCENTIAN 56 mL/min/1.73m2 Critically low >=60 [facility] Comment on above: Performed By: #### C MP ####[facility] Tgwdqipaut[address] [place], [place] [address]Dr. Nahed Yañez EGFR-NON AF VINCENTIAN 46 mL/min/1.73m2 Critically low >=60 [facility] Comment on above: Performed By: #### C MP ####[facility] Cxigeoyuqy[address] [place], [place] [address]Dr. Nahed Otilio Globulin (S) [Mass/Vol] 4.1 g/dL Normal [facility] Comment on above: Performed By: #### C MP ####[facility] Fwiunrrhle[address] [place], [place] [address]Dr. Nahed Otilio Glucose [Mass/Vol] 244 mg/dL Critically high 74-106 T [facility] Comment on above: Performed By: #### C MP ####[facility] Gdavaonbba[address] [place], [place] [address]Dr. Nahed Yañez Potassium [Moles/Vol] 4.3 mmol/L Normal 3.5-5.1 [facility] Comment on above: Performed By: #### C MP ####[facility] Cozydzfmcg[address] [place], [place] [address]Dr. Nahed Yañez Protein [Mass/Vol] 7.1 g/dL Normal 6.4-8.2 [facility] Comment on above: Performed By: #### C MP ####[facility] Tgkifmtjcz[address] [place], [place] [address]Dr. Nahed Otilio Sodium [Moles/Vol] 136 mmol/L Normal 136-145 [facility] Comment on above: Performed By: #### C MP ####[facility] Utxuddjpud[address] [place], [place] [address]Dr. Nahed Yañez Urea nitrogen [Mass/Vol] 19.0 mg/dL Critically high 7.0-18.0 [facility] Comment on above: Performed By: #### C MP ####[facility] Rbqmlfybxr[address] [place], [place] [address]Dr. Nahed Yañez Urea nitrogen/Creatinine [Mass ratio] 16.0 mg/mg Normal [facility] Comment on above: Performed By: #### C MP ####[facility] Niflihfnmk[address] [place], [place] [address]Dr. Nahed Otilio BNPon 07-27-2022 Natriuretic peptide B (Bld) [Mass/Vol] 1093.0 pg/mL Critically high <=900.0 [facility] Comment on above: Performed By: #### B CLIENT PROGRAM MANAGER ####[facility] Kvogislhcu[address] [place], [place] [address]Dr. Rosemarieashley Otilio CBC AUTO DIFFon 07-27-2022 BASO # 0.1 103/ul Normal 0.0-0.1 [facility] Comment on above: Performed By: #### C BC ####[facility] Prxqvltkvg407[address] [place], [place] [address]Dr. Nahed Yañez Basophils/100 WBC (Bld) 0.3 % Normal 0.2-2.0 [facility] Comment on above: Performed By: #### C BC ####[facility] Ebjpeqokix[address] [place] [id number]. Nahed Yañez EO # 0.2 103/ul Normal 0.0-0.7 [facility] Comment on above: Performed By: #### C BC ####[facility] Magayvwfte5539 [place] [phone]. Nahed Yañez Eosinophils/100 WBC (Bld) 1.2 % Normal 0.9-7.0 [facility] Comment on above: Performed By: #### C BC ####[facility] Nebovhtgse[address] [place], [place] [address]Dr. Nahed Yañez Erythrocyte distribution width (RBC) [Ratio] 14.1 % Normal 11.0-15.0 [facility] Comment on above: Performed By: #### C BC ####[facility] Ydctecgxts[address] [place], [place] [address]Dr. Nahed Yañez Hematocrit (Bld) [Volume fraction] 42.2 % Normal 36.0-48.0 [facility] Comment on above: Performed By: #### C BC ####[facility] Ovfjtgnjud[address] [place], [place] [address]Dr. Nahed Yañez Hemoglobin (Bld) [Mass/Vol] 13.6 g/dL Normal 12.0-16.0 [facility] Comment on above: Performed By: #### C BC ####[facility] Eoxwjpqrmu[address] [place], [place] [address]Dr. Nahed Yañez IG # 0.09 10e3/ul Critically high 0.00-0.03 [facility] Comment on above: Performed By: #### C BC ####[facility] Zwtithjsfe4[address] [place], [place] [address]Dr. Nahed Yañez IG % 0.5 % Normal 0.0-0.5 [facility] Comment on above: Performed By: #### C BC ####[facility] Ontlsqxmmq[address] [place], [place] [address]Dr. Rosemarieashley Yañez LYMPH # 1.8 103/ul Normal 1.2-3.8 [facility] Comment on above: Performed By: #### C BC ####[facility] Jybgloqzwv0823 [place] [phone]. Nahed Otilio Lymphocytes/100 WBC (Bld) 10.2 % Critically low 20.5-60.0 [facility] Comment on above: Performed By: #### C BC ####[facility] Dofvufkwhn2522 [place] [phone]. Nahed Yañez MANUAL DIFF REQ NO Normal [facility] Comment on above: Performed By: #### C BC ####[facility] Csyjldjide2287 [place] [phone]. Nahed Yañez MCH (RBC) [Entitic mass] 28.3 pg Normal 26.7-34.0 [facility] Comment on above: Performed By: #### C BC ####[facility] Wxikisxixg7[address] [place] [address]Dr. Nahed Yañez MCHC (RBC) [Mass/Vol] 32.2 g/dL Normal 29.9-35.2 [facility] Comment on above: Performed By: #### C BC ####[facility] Zsjjwtxrty4622 [place] [phone]. Nahed Yañez MCV (RBC) [Entitic vol] 87.9 fL Normal 81.0-99.0 [facility] Comment on above: Performed By: #### C BC ####[facility] Wyichhuthy7315 [place] [phone]. Nahed Yañez MONO # 0.9 103/ul Critically high 0.3-0.8 [facility] Comment on above: Performed By: #### C BC ####[facility] Ejajrqmdsd3881 [place] [phone]. Nahed Yañez Monocytes/100 WBC (Bld) 5.2 % Normal 1.7-12.0 [facility] Comment on above: Performed By: #### C BC ####[facility] Nptiynetcc3976 [place] [phone]. Nahed Yañez NEUT # 14.4 103/ul Critically high 1.4-6.5 [facility] Comment on above: Performed By: #### C BC ####[facility] Exoc[address]qdst[address] [place], [place] [address]Tm. Nahed Yañez Neutrophils/100 WBC (Bld) 82.6 % Critically high 43.0-75.0 [facility] Comment on above: Performed By: #### C BC ####[facility] Bwurcquyyx3485 [place], [place] [address]Yn. Nahed Yañez Platelet mean volume (Bld) [Entitic vol] 10.1 fL Normal 9.5-13.5 [facility] Comment on above: Performed By: #### C BC ####[facility] Kyfwthyfzg8711 [place] [phone]. Nahed Yañez PLT 336 103/ul Normal 150-450 [facility] Comment on above: Performed By: #### C BC ####[facility] Bkleulrhvy5614 [place] [phone]. Nahed Yañez RBC 4.80 106/ul Normal 4.20-5.40 [facility] Comment on above: Performed By: #### C BC ####[facility] Mzrzeuxzih9127 [place], [place] [address]Pw. Nahed Yañez WBC 17.4 103/ul Critically high 4.0-11.0 [facility] Comment on above: Performed By: #### C BC ####[facility] Pjevwcfhbk8192 [place] [phone]. Nahed Yañez CTA CHEST WO W CONon 023 CTA CHEST WO W CON Normal [facility]-12 SARS-CoV-2 (COVID-19) RNA MIRNA+probe Ql (Unsp spec) Not detected Normal NOT DETECTED [facility] Comment on above: Result Comment: When [...] for this test is supported by the [employer] of [employer] Service's declaration that [...] be used). Performed By: #### C VDTB ####[facility] Aiiweacvma[address] [place], [place] [address]Dr. Nahed Yañez ECHOCARDIO M/2D COMPLETEon 0 07-27-2022 ECHOCARDIO M/2D COMPLETE Normal [facility] ER URINE PROFILEon 3 Bilirubin Ql (U) Negative Normal NEGATIVE [facility] Comment on above: Performed By: #### U MICRO, ERUR ####[facility] Gkbcoautje[address] [place], [place] [address]Dr. Nahed Yañez Clarity (U) CLEAR Normal CLEAR [facility] Comment on above: Performed By: #### U MICRO, ERUR ####[facility] Qawmozadut[address] [place], [place] [address]Dr. Nahed Yañez Color (U) LT. YELLOW Normal YELLOW [facility] Comment on above: Performed By: #### U MICRO, ERUR ####[facility] Keymayakos[address] [place], [place] [address]Dr. Nahed AGEED A micrscopic examination will be performed if indicated. Normal [facility] Comment on above: Performed By: #### U MICRO, ERUR ####[facility] Njqijpywti175[address] [place], [place] [address]Dr. Nahed Yañez Glucose Ql (U) >1000 Abnormal NEGATIVE The [facility] Comment on above: Performed By: #### U MICRO, ERUR ####[facility] Rrhuwecikx27[address] [place], [place] [address]Dr. Nahed Yañez Hemoglobin Ql (U) TRACE-LYSED Abnormal NEGATIVE [facility] Comment on above: Performed By: #### U MICRO, ERUR ####[facility] Ayzrpptgml9388 [place] [address]Dr. Nahed Yañez Ketones Ql (U) TRACE Abnormal NEGATIVE The [facility] Comment on above: Performed By: #### U MICRO, ERUR ####[facility] Wwvzlefbms1482 [place] [address]Dr. Nahed Yañez LEUKOCYTES Negative Normal NEGATIVE [facility] Comment on above: Performed By: #### U MICRO, ERUR ####[facility] Qfuqskafth8079 [place] [address]Dr. Nahed Yañez Nitrite Ql (U) Negative Normal NEGATIVE The [facility] Comment on above: Performed By: #### U MICRO, ERUR ####[facility] Depbhthgnl[address] [place], [place] [address]Dr. Nahed Yañez pH (U) 7.0 [pH] Normal 5-9 [facility] Comment on above: Performed By: #### U MICRO, ERUR ####[facility] Dzkwasgdff[address] [place], [place] [address]Dr. Nahed Yañez SPEC GRAVITY 1.020 Normal 1.005-<=1.02 5 [facility] Comment on above: Performed By: #### U MICRO, ERUR ####[facility] Lpzdvcdytb[address] [place], [place] [address]Dr. Nahed Yañez UA PROTEIN Negative Normal NEGATIVE/ TRACE [facility] Comment on above: Performed By: #### U MICRO, ERUR ####[facility] Uitnrwugnt[address] [place], [place] [address]Dr. Nahed Yañez UR MICRO IND INDICATED Normal [facility] Comment on above: Performed By: #### U MICRO, ERUR ####[facility] Avzqbibmip[address] [place], [place] [address]Dr. Nahed Yañez Urobilinogen Qn (U) 0.2 {Alem'U}/dL Normal 0.2 - 1. 0 [facility] Comment on above: Performed By: #### U MICRO, ERUR ####[facility] Ghowxpgnfx[address] [place], [place] [address]Dr. Nahed Yañez LIPID PROFILEon 07-27-2022 CHOL-HDL RATIO NORM SEE BELOW Normal [facility] Comment on above: Result Comment: 3.3 - 4.4 LOW RISK 4.4 - 7.1 AVERAGE RISK 7.1 - 11.0 MODERATE RISK >11.0 HIGH RISK Performed By: #### M G, LIPID ####[facility] Abupnbkhcb3585 [place], [place] [address]Jx. Nahed Yañez Cholesterol [Mass/Vol] 181 mg/dL Normal <=200 [facility] Comment on above: Performed By: #### M G, LIPID ####[facility] Ikulttbpbt8801 [place], [place] [address]Lv. Nahed Otilio Cholesterol in HDL [Mass/Vol] 87 mg/dL Critically high 40-60 [facility] Comment on above: Performed By: #### Pablo Moore, LIPID ####[facility] Kkdsyiyfet1775 [place] [phone]. Rosemarieashley Otilio Cholesterol in LDL [Mass/Vol] 78.6 mg/dL Normal [facility] Comment on above: Performed By: #### M Teresa, LIPID ####[facility] Yugczxmfqe8131 [place], [place] [address]Gj. Nahed Otilio Cholesterol.total/Chol esterol in HDL [Mass ratio] 2.1 {ratio} Normal [facility] Comment on above: Performed By: #### Pablo Moore, LIPID ####[facility] Zqoeqcyjcz0326 [place] [phone]. Rosemarieashley Otilio HDL NORMAL > or = 60 mg/dl - LO W CARDIOVASCULAR RISK <40 mg/dl - HIGH CARDIOVASCULAR RISK Normal [facility] Comment on above: Performed By: #### M G, LIPID ####[facility] Gtnhvhxyap6570 [place] [phone]. Nahed Otilio LDL CALC NORMAL SEE BELOW Normal [facility] Comment on above: Result Comment: <100 mg/dl OPTIMAL 100 - 129 mg/dl NEAR OR ABOVE OPTIMAL 130 - 159 mg/dl BORDERLINE HIGH 160 - 189 mg/dl HIGH >190 mg/dl VERY HIGH Performed By: #### M G, LIPID ####[facility] Pgdahzjfee7196 [place] [phone]. Nahed Yañez Triglyceride [Mass/Vol] 77 mg/dL Normal <=150 [facility] Comment on above: Performed By: #### M G, LIPID ####[facility] Azaevavozx6710 [place] [phone]. Nahed Yañez VLDL CALC 15.4 mg/dL Normal [facility] Comment on above: Performed By: #### M G, LIPID ####[facility] Sxsopyyzkl1974 [place] [phone]. Nahed Yañez MAGNESIUMon 07-27-2022 Magnesium [Mass/Vol] 1.7 mg/dL Critically low 1.8-2.4 [facility] Comment on above: Performed By: #### M Teresa, LIPID ####[facility] Ttaonffwve[address] [place] [address]Dr. Nahed Yañez POINT OF CARE GLUCOSEon 07-12 Glucose [Mass/Vol] 276 mg/dL Critically high -106 [facility] Comment on above: Performed By: #### P OCGLUC ####[facility] Nxybrxlhax35[address] [place] [address]Dr. Nahed Yañez Glucose [Mass/Vol] 143 mg/dL Critically high -106 [facility] Comment on above: Performed By: #### P OCGLUC ####[facility] Anedeuhnnv4985 [place] [address]Dr. Nahed Yañez Glucose [Mass/Vol] 117 mg/dL Critically high -106 [facility] Comment on above: Performed By: #### P OCGLUC ####[facility] Qszdkjqmee8570 [place] [address]Dr. Rosemarieashley Yañez PROF CHEM 8 (BAS METB)on Anion gap [Moles/Vol] 11.1 mmol/L Normal [facility] Comment on above: Performed By: #### B MP, HSTROPN ####[facility] Fycincwwiz9054 [place] [address]Dr. Nahed Yañez Calcium [Mass/Vol] 9.6 mg/dL Normal 8.5-10.1 [facility] Comment on above: Performed By: #### B RENZO, HSTROPN ####[facility] Mtnxysbgxr32[address] [place] [address]Dr. Nahed Yañez Chloride [Moles/Vol] 99 mmol/L Normal 98-107 [facility] Comment on above: Performed By: #### B RENZO, HSTROPN ####[facility] Eqjuhtqbqe2960 [place] [address]Dr. Nahed Yañez CO2 [Moles/Vol] 27.8 mmol/L Normal 21.0-32.0 [facility] Comment on above: Performed By: #### B RENZO, HSTROPN ####[facility] Hedoqbhxsr[address] [place], [place] [address]Dr. Nahed Yañez Creatinine [Mass/Vol] 0.90 mg/dL Normal 0.55-1.02 [facility] Comment on above: Performed By: #### Mery MULLER, HSTROPN ####[facility] Plwaziqjpa[address] [place], [place] [address]Dr. Nahed Yañez EGFR-AF VINCENTIAN >60 Normal >=60 [facility] Comment on above: Performed By: #### Mery MULLER, HSTROPN ####[facility] [address]celstkzp[address] [place], [place] [address]Dr. Nahed Yañez EGFR-NON AF VINCENTIAN >60 Normal >=60 [facility] Comment on above: Performed By: #### Mery MULLER, HSTROPN ####[facility] Yuywmhylny[address] [place] [address]Dr. Nahed Yañez Glucose [Mass/Vol] 133 mg/dL Critically high 74-106 [facility] Comment on above: Performed By: #### B RENZO, HSTROPN ####[facility] Yoctwypjlb[address] [place], [place] [address]Dr. Nahed Yañez Potassium [Moles/Vol] 3.9 mmol/L Normal 3.5-5.1 [facility] Comment on above: Performed By: #### Mery MULLER, HSTROPN ####[facility] Ncyaklckzq[address] [place], [place] [address]Dr. Nahed Yañez Sodium [Moles/Vol] 134 mmol/L Critically low 136-145 Th e [facility] Comment on above: Performed By: #### B MP, HSTROPN ####[facility] Ozbsxjdfuc1746 [place] [address]Dr. Nahed Yañez Urea nitrogen [Mass/Vol] 9.0 mg/dL Normal 7.0-18.0 [facility] Comment on above: Performed By: #### B MP, HSTROPN ####[facility] Xuemxhhvxb7155 [place] [address]Dr. Rosemarieashley Yañez Urea nitrogen/Creatinine [Mass ratio] 10.0 mg/mg Normal [facility] Comment on above: Performed By: #### B MP, HSTROPN ####[facility] Gwtusaorjj[address] [place] [address]Dr. Nahed Otilio TROPONIN, HIGH SENSITIVITYon 07-27-2022 HSTROP 40.7 pg/mL Normal 4.0-51.3 [facility] Comment on above: Result Comment: CUT- OFF POINTS HAVE BEEN ESTABLISHED BASED ON THE FOURTH UNIVERSAL DEFINITIONS OF MYOCARDIALINFARCTION. THE UPPER REFERENCE LIMIT (URL) OF TROPONIN, DEFINED THE 99TH PERCENTILE OFcTnI DISTRIBUTION IN A REFERENCE POPULATION, HAS BEEN CONFIRMED THE DECISION THRESHOLDFOR [place] DIAGNOSIS. Performed By: #### H STROPN ####[facility] Umfjodxwho[address] [place] [address]Dr. Nahed Yañez HSTROP 42.5 pg/mL Normal 4.0-51.3 [facility] Comment on above: Result Comment: CUT- OFF POINTS HAVE BEEN ESTABLISHED BASED ON THE FOURTH UNIVERSAL DEFINITIONS OF MYOCARDIALINFARCTION. THE UPPER REFERENCE LIMIT (URL) OF TROPONIN, DEFINED THE 99TH PERCENTILE OFcTnI DISTRIBUTION IN A REFERENCE POPULATION, HAS BEEN CONFIRMED THE DECISION THRESHOLDFOR [place] DIAGNOSIS. Performed By: #### H STROPN ####[facility] Qjzbogyipf9679 [place] [address]Dr. Nahed Yañez HSTROP 50.8 pg/mL Normal 4.0-51.3 [facility] Comment on above: Result Comment: CUT- OFF POINTS HAVE BEEN ESTABLISHED BASED ON THE FOURTH UNIVERSAL DEFINITIONS OF MYOCARDIALINFARCTION. THE UPPER REFERENCE LIMIT (URL) OF TROPONIN, DEFINED THE 99TH PERCENTILE OFcTnI DISTRIBUTION IN A REFERENCE POPULATION, HAS BEEN CONFIRMED THE DECISION THRESHOLDFOR [place] DIAGNOSIS. Performed By: #### H STROPN ####[facility] Kvmzqdrpwr8334 [place] [phone]. Nahed Yañez HSTROP 46.3 pg/mL Normal 4.0-51.3 [facility] Comment on above: Result Comment: CUT- OFF POINTS HAVE BEEN ESTABLISHED BASED ON THE FOURTH UNIVERSAL DEFINITIONS OF MYOCARDIALINFARCTION. THE UPPER REFERENCE LIMIT (URL) OF TROPONIN, DEFINED THE 99TH PERCENTILE OFcTnI DISTRIBUTION IN A REFERENCE POPULATION, HAS BEEN CONFIRMED THE DECISION THRESHOLDFOR [place] DIAGNOSIS. Performed By: #### H STROBINH, TSH ####[facility] Pzdfszqqpd0983 [place] [address]Dr. Nahed Yañez HSTROP 54.2 pg/mL Critically high 4.0-51.3 [facility] Comment on above: Result Comment: CUT- OFF POINTS HAVE BEEN ESTABLISHED BASED ON THE [facility] UNIVERSAL DEFINITIONS OF MYOCARDIALINFARCTION. THE UPPER REFERENCE LIMIT (URL) OF TROPONIN, DEFINED THE 99TH PERCENTILE OFcTnI DISTRIBUTION IN A REFERENCE POPULATION, HAS BEEN CONFIRMED THE DECISION THRESHOLDFOR [place] DIAGNOSIS. Performed By: #### B MP, HSTROPN ####[facility] Flrakeeuot8537 [place] [phone]. Nahed Yañez TSHon 07-27-2022 TSH 1.566 uIU/mL Normal 0.358-3.740 [facility] Comment on above: Performed By: #### H STROPN, TSH ####[facility] Ynmivkhxdv0829 [place] [phone]. Nahed Yañez URINE MICROSCOPIC ONLYon BACTERIA NONE SEEN Normal NONE SEEN The [facility] Comment on above: Performed By: #### U MICRO, ERUR ####[facility] Hviqltijtp5220 [place] [phone]. Nahed Yañez Bacteria identified Cx Nom (U) NOT INDICATED Normal [facility] Comment on above: Performed By: #### U MICRO, ERUR ####[facility] Rudmbwaeps5666 [place] [address]Dr. Nahed Yañez CAST NONE SEEN Normal NONE SEEN The [facility] Comment on above: Performed By: #### U MICRO, ERUR ####[facility] Xsxdkxfbeg1027 [place] [address]Dr. Nahed Yañez Crystals LM Nom (Urine sed) NONE SEEN Normal NONE SEEN The [facility] Comment on above: Performed By: #### U MICRO, ERUR ####[facility] Nbkjjaapso3181 [place] [address]Dr. Nahed Yañez Epithelial cells LM Ql (Urine sed) FEW Abnormal NONE SEEN /RARE The [facility] Comment on above: Performed By: #### U MICRO, ERUR ####[facility] Rkwohjgjfk6475 [place] [address]Dr. Nahed Yañez MUCOUS NONE SEEN Normal NONE SEEN The [facility] Comment on above: Performed By: #### U MICRO, ERUR ####[facility] Bfamkkntbk[address] [place], [place] [address]Dr. Nahed Yañez RBC 0-2 Normal 0-2 [facility] Comment on above: Performed By: #### U MICRO, ERUR ####[facility] Gneqohwmxi[address] [place], [place] [address]Dr. Nahed Yañez WBC NONE SEEN Normal NONE SEEN The [facility] Comment on above: Performed By: #### U MICRO, ERUR ####[facility] Mqpbxhrfvj[address] [place], [place] [address]Dr. Nahed Yañez XR CHEST 1 Von 07-27-2022 XR CHEST 1 V Normal [facility] INSULINon 05-09-2022 Insulin 21.1 uIU/mL Normal 2.6-24.9 [facility] Comment on above: Performed By: #### I NSULIN ####[facility] [address]pkwccxkav[address] [place], [place] [address]Dr. Nahed Yañez BNPon 05-08-2022 Natriuretic peptide B (Bld) [Mass/Vol] 58.0 pg/mL Normal <=900.0 [facility] Comment on above: Performed By: #### B CLIENT PROGRAM MANAGER, LIPID, T7, TSH, CMP ####[facility] Ndvkrqnfdb3252 [place] [phone]. Nahed Yañez CBC AUTO DIFFon 05-08-2022 BASO # 0.0 103/ul Normal 0.0-0.1 [facility] Comment on above: Performed By: #### C BC ####[facility] Awotvwtuvv0577 [place] [phone]. Nahed Yañez Basophils/100 WBC (Bld) 0.4 % Normal 0.2-2.0 [facility] Comment on above: Performed By: #### C BC ####[facility] Zxvdrmxilu[address] [place], [place] [address]Dr. Nahed Yañez EO # 0.3 103/ul Normal 0.0-0.7 [facility] Comment on above: Performed By: #### C BC ####[facility] Hooqnofpex24[address] [place], [place] [address]Dr. Nahed Yañez Eosinophils/100 WBC (Bld) 4.2 % Normal 0.9-7.0 [facility] Comment on above: Performed By: #### C BC ####[facility] Nxwcsrxygw[address] [place], [place] [address]Dr. Nahed Yañez Erythrocyte distribution width (RBC) [Ratio] 14.0 % Normal 11.0-15.0 [facility] Comment on above: Performed By: #### C BC ####[facility] Nmytjfmday[address] [place], [place] [address]Dr. Nahed Yañez Hematocrit (Bld) [Volume fraction] 43.8 % Normal 36.0-48.0 [facility] Comment on above: Performed By: #### C BC ####[facility] [address]shtqlycxc[address] [place], [place] [address]Dr. Nahed Yañez Hemoglobin (Bld) [Mass/Vol] 13.9 g/dL Normal 12.0-16.0 [facility] Comment on above: Performed By: #### C BC ####[facility] Rwurzfsnax[address] [place], [place] [address]Dr. Nahed Yañez IG # 0.01 10e3/ul Normal 0.00-0.03 [facility] Comment on above: Performed By: #### C BC ####[facility] Vcctnlkppn1128 [place] [address]DrShaun Rosemarieashley Yañez IG % 0.1 % Normal 0.0-0.5 [facility] Comment on above: Performed By: #### C BC ####[facility] Qdnswuctzd7274 [place] [phone] Rosemarieashley Yañez LYMPH # 2.8 103/ul Normal 1.2-3.8 [facility] Comment on above: Performed By: #### C BC ####[facility] Rjnnngrixw6272 [place] [address]DrShaun Rosemarieashley Yañez Lymphocytes/100 WBC (Bld) 37.6 % Normal 20.5-60.0 [facility] Comment on above: Performed By: #### C BC ####[facility] Hgnmphiay[address] [place], [place] [address]DrShaun Yañez MANUAL DIFF REQ NO Normal [facility] Comment on above: Performed By: #### C BC ####[facility] Tefciwecwh9[address] [place] [phone]. Nahed Otilio MCH (RBC) [Entitic mass] 28.4 pg Normal 26.7-34.0 [facility] Comment on above: Performed By: #### C BC ####[facility] [address] [place], [place] [id number] Nahed Otilio MCHC (RBC) [Mass/Vol] 31.7 g/dL Normal 29.9-35.2 [facility] Comment on above: Performed By: #### C BC ####[facility] Rwkucjdmka[address] [place], [place] [address]DrShaun Rosemarieashley Yañez MCV (RBC) [Entitic vol] 89.6 fL Normal 81.0-99.0 [facility] Comment on above: Performed By: #### C BC ####[facility] Mbyzbzgnbe6735 [place] [phone] Yañez MONO # 0.5 103/ul Normal 0.3-0.8 [facility] Comment on above: Performed By: #### C BC ####[facility] Shbkgcijno1699 [place] [phone]. Nahed Yañez Monocytes/100 WBC (Bld) 6.8 % Normal 1.7-12.0 [facility] Comment on above: Performed By: #### C BC ####[facility] Nyanvrgupf2806 [place] [phone]. Nahed Yañez NEUT # 3.7 103/ul Normal 1.4-6.5 [facility] Comment on above: Performed By: #### C BC ####[facility] Tduuepnyka0066 [place] [phone]. Nahed Yañez Neutrophils/100 WBC (Bld) 50.9 % Normal 43.0-75.0 [facility] Comment on above: Performed By: #### C BC ####[facility] Nxvmjvstuy[address] [place] [address]Dr. Nahed Yañez Platelet mean volume (Bld) [Entitic vol] 9.8 fL Normal 9.5-13.5 [facility] Comment on above: Performed By: #### C BC ####[facility] Myarnbrnxp9023 [place] [phone]. Nahed Yañez PLT 306 103/ul Normal 150-450 [facility] Comment on above: Performed By: #### C BC ####[facility] Jtpxheaxle0697 [place] [phone]. Nahed Yañez RBC 4.89 106/ul Normal 4.20-5.40 [facility] Comment on above: Performed By: #### C BC ####[facility] Ddfpyoulpl[address] [place] [phone]. Nahed Yañez WBC 7.3 103/ul Normal 4.0-11.0 [facility] Comment on above: Performed By: #### C BC ####[facility] Hmlzmknpci9416 [place] [phone]. Nahed Yañez FREE THYROXINE INDEX T7on FTI 2.92 Normal 1.30-4.50 [facility] Comment on above: Performed By: #### B CLIENT PROGRAM MANAGER, LIPID, T7, TSH, CMP ####[facility] Gfsffryiio5[address] [place] [phone]. Nahed Yañez T3U 34.0 % Normal 30.0-39.0 [facility] Comment on above: Performed By: #### B CLIENT PROGRAM MANAGER, LIPID, T7, TSH, CMP ####[facility] Hccbnhgink4680 [place] [phone]. Nahed Yañez T4 [Mass/Vol] 8.60 ug/dL Normal 4.80-13.90 [facility] Comment on above: Performed By: #### B CLIENT PROGRAM MANAGER, LIPID, T7, TSH, CMP ####[facility] Fymmzaggth[address] [place] [address]Dr. Nahed Yañez GLYCOHEMOGLOBIN A1Con 2021 ADA RECOMMENDATION SEE BELOW Normal [facility] Comment on above: Result Comment: ADA RECOMMENDED LIMIT 4.0 - 6.0 ADA THERAPEUTIC TARGET < 7.0 ACTION SUGGESTED > 7.0 Performed By: #### A 1C ####[facility] Dizkrapqqe98[address] [place] [address]Dr. Nahed Yañez Glucose [Mass/Vol] 146 mg/dL Normal [facility] Comment on above: Performed By: #### A 1C ####[facility] Arqddwztme68[address] [place] [address]Dr. Nahed Yañez HbA1c (Bld) [Mass fraction] 6.7 % Critically high 4.5-6.2 [facility] Comment on above: Performed By: #### A 1C ####[facility] Olelwydlyx58[address] [place] [phone]. Nahed Yañez IRONon 05-08-2022 Iron [Mass/Vol] 76.0 ug/dL Normal 50.0-170.0 [facility] Comment on above: Performed By: #### V ITAD, IRON ####[facility] Ucruhjwrsr9245 [place] [phone]. Nahed Yañez LIPID PROFILEon 05-08-2022 CHOL-HDL RATIO NORM SEE BELOW Normal [facility] Comment on above: Result Comment: 3.3 - 4.4 LOW RISK 4.4 - 7.1 AVERAGE RISK 7.1 - 11.0 MODERATE RISK >11.0 HIGH RISK Performed By: #### B CLIENT PROGRAM MANAGER, LIPID, T7, TSH, CMP ####[facility] Ajndhirwsr[address] [place] [address]Dr. Nahed Yañez Cholesterol [Mass/Vol] 167 mg/dL Normal <=200 [facility] Comment on above: Performed By: #### B CLIENT PROGRAM MANAGER, LIPID, T7, TSH, CMP ####[facility] Djtwluiajl[address] [place], [place] [address]Dr. Nahed Yañez Cholesterol in HDL [Mass/Vol] 63 mg/dL Critically high 40-60 [facility] Comment on above: Performed By: #### B CLIENT PROGRAM MANAGER, LIPID, T7, TSH, CMP ####[facility] Ubvqjirnvd[address] [place], [place] [address]Dr. Nahed Yañez Cholesterol in LDL [Mass/Vol] 72.6 mg/dL Normal [facility] Comment on above: Performed By: #### B CLIENT PROGRAM MANAGER, LIPID, T7, TSH, CMP ####[facility] Cvbjpztdvc[address] [place], [place] [address]Dr. Nahed Yañez Cholesterol.total/Chol esterol in HDL [Mass ratio] 2.7 {ratio} Normal [facility] Comment on above: Performed By: #### B CLIENT PROGRAM MANAGER, LIPID, T7, TSH, CMP ####[facility] Jnemaeaqkh[address] [place], [place] [address]Dr. Rosemarieashley Yañez HDL NORMAL > or = 60 mg/dl - LO W CARDIOVASCULAR RISK <40 mg/dl - HIGH CARDIOVASCULAR RISK Normal [facility] Comment on above: Performed By: #### B CLIENT PROGRAM MANAGER, LIPID, T7, TSH, CMP ####[facility] Cgaoxkxran[address] [place], [place] [address]Dr. Rosemarieashley Yañez LDL CALC NORMAL SEE BELOW Normal [facility] Comment on above: Result Comment: <100 mg/dl OPTIMAL 100 - 129 mg/dl NEAR OR ABOVE OPTIMAL 130 - 159 mg/dl BORDERLINE HIGH 160 - 189 mg/dl HIGH >190 mg/dl VERY HIGH Performed By: #### B CLIENT PROGRAM MANAGER, LIPID, T7, TSH, CMP ####[facility] Flotdfhuqo3376 [place] [phone]. Nahed Yañez Triglyceride [Mass/Vol] 157 mg/dL Critically high <=150 [facility] Comment on above: Performed By: #### B CLIENT PROGRAM MANAGER, LIPID, T7, TSH, CMP ####[facility] Tuyyikoklj9[address] [place] [address]Dr. Nahed Yañez VLDL CALC 31.4 mg/dL Normal [facility] Comment on above: Performed By: #### B CLIENT PROGRAM MANAGER, LIPID, T7, TSH, CMP ####[facility] Tcgxiijvxx6073 [place] [address]Dr. Nahed Yañez OCC BLD IMMUNO SCREENon 04-14 OCCULT BLOOD Negative Normal NEGATIVE [facility] Comment on above: Performed By: #### O BSCRN ####[facility] Lioqlqbero[address] [place] [address]Dr. Nahed Yañez PROF 14(COMP METB)on 022 Albumin [Mass/Vol] 3.7 g/dL Normal 3.4-5.0 [facility] Comment on above: Performed By: #### B CLIENT PROGRAM MANAGER, LIPID, T7, TSH, CMP ####[facility] Mzgidgskiz3326 [place] [address]Dr. Nahed Yañez Albumin/Globulin [Mass ratio] 0.9 {ratio} Normal [facility] Comment on above: Performed By: #### B CLIENT PROGRAM MANAGER, LIPID, T7, TSH, CMP ####[facility] Xyrfolsuas6[address] [place] [address]Dr. Nahed Yañez ALP [Catalytic activity/Vol] 99 U/L Normal 46-116 [facility] Comment on above: Performed By: #### B CLIENT PROGRAM MANAGER, LIPID, T7, TSH, CMP ####[facility] Foipbmndot60[address] [place] [address]Dr. Nahed Yañez ALT [Catalytic activity/Vol] 20 U/L Normal 14-59 [facility] Comment on above: Performed By: #### B CLIENT PROGRAM MANAGER, LIPID, T7, TSH, CMP ####[facility] Ahcxdzwhcl9[address] [place] [address]Dr. Nahed Yañez Anion gap [Moles/Vol] 10.6 mmol/L Normal Th e [facility] Comment on above: Performed By: #### B CLIENT PROGRAM MANAGER, LIPID, T7, TSH, CMP ####[facility] Jlbyrxnhjx3552 [place] [address]Dr. Nahed Yañez AST [Catalytic activity/Vol] 29 U/L Normal 15-37 [facility] Comment on above: Performed By: #### B CLIENT PROGRAM MANAGER, LIPID, T7, TSH, CMP ####[facility] Oafanwgqsp8684 [place] [address]Dr. Nahed Yañez Bilirubin [Mass/Vol] 0.4 mg/dL Normal 0.2-1.0 [facility] Comment on above: Performed By: #### B CLIENT PROGRAM MANAGER, LIPID, T7, TSH, CMP ####[facility] Hxmvmvlefa[address] [place], [place] [address]Dr. Nahed Yañez Calcium [Mass/Vol] 9.3 mg/dL Normal 8.5-10.1 [facility] Comment on above: Performed By: #### B CLIENT PROGRAM MANAGER, LIPID, T7, TSH, CMP ####[facility] Tdtrpnfnqe[address] [place], [place] [address]Dr. Nahed Yañez Chloride [Moles/Vol] 100 mmol/L Normal 98-107 [facility] Comment on above: Performed By: #### B CLIENT PROGRAM MANAGER, LIPID, T7, TSH, CMP ####[facility] Pmejipltiu[address] [place], [place] [address]Dr. Nahed Yañez CO2 [Moles/Vol] 31.4 mmol/L Normal 21.0-32.0 [facility] Comment on above: Performed By: #### B CLIENT PROGRAM MANAGER, LIPID, T7, TSH, CMP ####[facility] Dozqoxrqpn[address] [place], [place] [address]Dr. Nahed Yañez Creatinine [Mass/Vol] 1.01 mg/dL Normal 0.55-1.02 [facility] Comment on above: Performed By: #### B CLIENT PROGRAM MANAGER, LIPID, T7, TSH, CMP ####[facility] Wownkpgprr80[address] [place] [address]Dr. Nahed Yañez EGFR-AF VINCENTIAN >60 Normal >=60 [facility] Comment on above: Performed By: #### B CLIENT PROGRAM MANAGER, LIPID, T7, TSH, CMP ####[facility] Bcfmgktnol3782 [place] [address]Dr. Nahed Yañez EGFR-NON AF VINCENTIAN 56 mL/min/1.73m2 Critically low >=60 [facility] Comment on above: Performed By: #### B CLIENT PROGRAM MANAGER, LIPID, T7, TSH, CMP ####[facility] Dwxdfgfzoj[address] [place], [place] [address]Dr. Nahed Yañez Globulin (S) [Mass/Vol] 3.9 g/dL Normal [facility] Comment on above: Performed By: #### B CLIENT PROGRAM MANAGER, LIPID, T7, TSH, CMP ####[facility] Bkdwcxortb[address] [place], [place] [address]Dr. Nahed Yañez Glucose [Mass/Vol] 111 mg/dL Critically high 74-106 [facility] Comment on above: Performed By: #### B CLIENT PROGRAM MANAGER, LIPID, T7, TSH, CMP ####[facility] Fdzvilfpjg[address] [place], [place] [address]Dr. Nahed Yañez Potassium [Moles/Vol] 4.0 mmol/L Normal 3.5-5.1 [facility] Comment on above: Performed By: #### B CLIENT PROGRAM MANAGER, LIPID, T7, TSH, CMP ####[facility] Wdypwixkis[address] [place], [place] [address]Dr. Nahed Yañez Protein [Mass/Vol] 7.6 g/dL Normal 6.4-8.2 [facility] Comment on above: Performed By: #### B CLIENT PROGRAM MANAGER, LIPID, T7, TSH, CMP ####[facility] Ndhbcmfndb[address] [place], [place] [address]Dr. Nahed Yañez Sodium [Moles/Vol] 138 mmol/L Normal 136-145 [facility] Comment on above: Performed By: #### B CLIENT PROGRAM MANAGER, LIPID, T7, TSH, CMP ####[facility] Merjyhicku[address] [place], [place] [address]Dr. Nahed Yañez Urea nitrogen [Mass/Vol] 17.0 mg/dL Normal 7.0-18.0 [facility] Comment on above: Performed By: #### B CLIENT PROGRAM MANAGER, LIPID, T7, TSH, CMP ####[facility] Qzbtpgkfux63[address] [place] [address]Dr. Nahed Yañez Urea nitrogen/Creatinine [Mass ratio] 16.8 mg/mg Normal [facility] Comment on above: Performed By: #### B CLIENT PROGRAM MANAGER, LIPID, T7, TSH, CMP ####[facility] Iicztfdpmu5145 [place] [phone]. Nahed Yañez TSHon 05-08-2022 TSH 2.835 uIU/mL Normal 0.358-3.740 [facility] Comment on above: Performed By: #### B CLIENT PROGRAM MANAGER, LIPID, T7, TSH, CMP ####[facility] Zznhcnwatx2574 [place] [address]Dr. Nahed Yañez VITAMIN D 25 OHon 05-08-2022 VIT D 25-OH 13.4 ng/mL Normal [facility] Comment on above: Performed By: #### V ITLUISA, IRON ####[facility] Vrbrzzchhh[address] [place], [place] [address]Dr. Nahed Yañez VIT D RANGES SEE BELOW Normal [facility] Comment on above: Result Comment: <20 ng/mL Vit D deficient 20 - <30 ng/mL Vit D insufficient 30 - 100 ng/mL Vit D sufficient >100 ng/mL Potential Toxicity Performed By: #### V ITLUISA, IRON ####[facility] Yhzrczuqjf[address] [place] [address]Dr. Nahed Yañez CARDIAC FRANCISCO 3-6on 2 CK [Catalytic activity/Vol] 37 U/L Normal 26-192 [facility] Comment on above: Performed By: #### C MREP ####[facility] Ukuytuuksm27[address] [place] [address]Dr. Nahed Yañez CK.MB [Mass/Vol] 0.79 ng/mL Normal <=3.60 [facility] Comment on above: Performed By: #### C MREP ####[facility] Cmzdrheaey1495 [place] [address]Dr. Nahed Yañez HSTROP 55.3 pg/mL Critically high 4.0-51.3 [facility] Comment on above: Result Comment: CUT- OFF POINTS HAVE BEEN ESTABLISHED BASED ON THE FOURTH UNIVERSAL DEFINITIONS OF MYOCARDIALINFARCTION. THE UPPER REFERENCE LIMIT (URL) OF TROPONIN, DEFINED THE 99TH PERCENTILE OFcTnI DISTRIBUTION IN A REFERENCE POPULATION, HAS BEEN CONFIRMED THE DECISION THRESHOLDFOR [place] DIAGNOSIS. Performed By: #### C MREP ####[facility] Qvzvgmfbut5541 [place] [phone]. Nahed Yañez CK [Catalytic activity/Vol] 49 U/L Normal 26-192 [facility] Comment on above: Performed By: #### C MREP ####[facility] Dyhsgegcqy4109 [place] [address]Dr. Nahed Yañez CK.MB [Mass/Vol] 0.71 ng/mL Normal <=3.60 [facility] Comment on above: Performed By: #### C MREP ####[facility] Excovipryi0375 [place] [phone]. Nahed Yañez HSTROP 62.6 pg/mL Critically high 4.0-51.3 [facility] Comment on above: Result Comment: CUT- OFF POINTS HAVE BEEN ESTABLISHED BASED ON THE FOURTH UNIVERSAL DEFINITIONS OF MYOCARDIALINFARCTION. THE UPPER REFERENCE LIMIT (URL) OF TROPONIN, DEFINED THE 99TH PERCENTILE OFcTnI DISTRIBUTION IN A REFERENCE POPULATION, HAS BEEN CONFIRMED THE DECISION THRESHOLDFOR [place] DIAGNOSIS. Performed By: #### C MREP ####[facility] Gokuukjvmk1404 [place] [phone]. Nahed Yañez Covid-19 PCR (CVDTB)on 01-13 SARS-CoV-2 (COVID-19) RNA MIRNA+probe Ql (Unsp spec) Not detected Normal NOT DETECTED [facility] Comment on above: Result Comment: When [...] for this test is supported by the [employer] of [employer] and [employer] Service's declaration that [...] longer be used). Performed By: #### [facility] ####[facility] Qtiynhwoni[address] [place], [place] [address]Dr. Nahed Yañez ECHO LIMITED STUDYon 022 ECHO LIMITED STUDY Normal [facility] GLYCOHEMOGLOBIN A1Con 2021 ADA RECOMMENDATION SEE BELOW Normal [facility] Comment on above: Result Comment: ADA RECOMMENDED LIMIT 4.0 - 6.0 ADA THERAPEUTIC TARGET < 7.0 ACTION SUGGESTED > 7.0 Performed By: #### A 1C ####[facility] Szxzclhwpz[address] [place], [place] [address]Dr. Nahed Yañez Glucose [Mass/Vol] 140 mg/dL Normal [facility] Comment on above: Performed By: #### A 1C ####[facility] Mmetacfnjo[address] [place], [place] [address]Dr. Nahed Yañez HbA1c (Bld) [Mass fraction] 6.5 % Critically high 4.5-6.2 [facility] Comment on above: Performed By: #### A 1C ####[facility] Tfvvfplzkb[address] [place], [place] [address]Dr. Nahed Yañez LIPID PROFILEon 01-31-2022 CHOL-HDL RATIO NORM SEE BELOW Normal The [facility] Comment on above: Result Comment: 3.3 - 4.4 LOW RISK 4.4 - 7.1 AVERAGE RISK 7.1 - 11.0 MODERATE RISK >11.0 HIGH RISK Performed By: #### L IPID ####[facility] Rjzakrwjnz[address] [place], [place] [address]Dr. Nahed Yañez Cholesterol [Mass/Vol] 152 mg/dL Normal <=200 Th [facility] Comment on above: Performed By: #### L IPID ####[facility] Qvajwpindz0202 [place], [place] [address]Fn. Nahed Yañez Cholesterol in HDL [Mass/Vol] 74 mg/dL Critically high 40-60 [facility] Comment on above: Performed By: #### L IPID ####[facility] Calzsgvdwx4690 [place] [phone]. Nahed Yañez Cholesterol in LDL [Mass/Vol] 62.8 mg/dL Normal [facility] Comment on above: Performed By: #### L IPID ####[facility] Jkfqcgcbfr8639 [place] [phone]. Nahed Yañez Cholesterol.total/Chol esterol in HDL [Mass ratio] 2.1 {ratio} Normal [facility] Comment on above: Performed By: #### L IPID ####[facility] Qeyxkvrfwi7183 [place] [phone]. Nahed Yañez HDL NORMAL > or = 60 mg/dl - LO W CARDIOVASCULAR RISK <40 mg/dl - HIGH CARDIOVASCULAR RISK Normal [facility] Comment on above: Performed By: #### L IPID ####[facility] Shyxfpwkdg5726 [place] [phone]. Nahed Yañez LDL CALC NORMAL SEE BELOW Normal [facility] Comment on above: Result Comment: <100 mg/dl OPTIMAL 100 - 129 mg/dl NEAR OR ABOVE OPTIMAL 130 - 159 mg/dl BORDERLINE HIGH 160 - 189 mg/dl HIGH >190 mg/dl VERY HIGH Performed By: #### L IPID ####[facility] Caaagvwkem8159 [place] [phone]. Nahed Yañez Triglyceride [Mass/Vol] 76 mg/dL Normal <=150 [facility] Comment on above: Performed By: #### L IPID ####[facility] Tnkuhrffoe2818 [place] [phone]. Nahed Yañez VLDL CALC 15.2 mg/dL Normal [facility] Comment on above: Performed By: #### L IPID ####[facility] Xchmtdwfgs8342 [place] [phone]. Nahed Yañez XR CHEST 1 Von 01-31-2022 XR CHEST 1 V Normal [facility] BNPon 01-30-2022 Natriuretic peptide B (Bld) [Mass/Vol] 150.0 pg/mL Normal <=900.0 [facility] Comment on above: Performed By: #### B MP, BNP, CMADM ####[facility] Jotuydbfig[address] [place] [address]Dr. Rosemarieashley Yañez CARDIAC FRANCISCO ADMITon 022 CK [Catalytic activity/Vol] 88 U/L Normal 26-192 [facility] Comment on above: Performed By: #### B MP, BNP, CMADM ####[facility] Euzcwdugwu77[address] [place] [address]Dr. Nahed Otilio CK.MB [Mass/Vol] 1.26 ng/mL Normal <=3.60 [facility] Comment on above: Performed By: #### B MP, BNP, CMADM ####[facility] Vuuswzxeah[address] [place], [place] [address]Dr. Nahed Yañez HSTROP 69.3 pg/mL Critically high 4.0-51.3 [facility] Comment on above: Result Comment: CUT- OFF POINTS HAVE BEEN ESTABLISHED BASED ON THE FOURTH UNIVERSAL DEFINITIONS OF MYOCARDIALINFARCTION. THE UPPER REFERENCE LIMIT (URL) OF TROPONIN, DEFINED THE 99TH PERCENTILE OFcTnI DISTRIBUTION IN A REFERENCE POPULATION, HAS BEEN CONFIRMED THE DECISION THRESHOLDFOR [place] DIAGNOSIS. Performed By: #### B MP, BNP, CMADM ####[facility] Xckxbwhhbl7398 [place] [address]Dr. Nahed Otilio ANDRE 59 ng/mL Normal 9-82 [facility] Comment on above: Performed By: #### B MP, BNP, CMADM ####[facility] Donkspfoup[address] [place] [address]Dr. Nahed Yañez CBC AUTO DIFFon 01-30-2022 BASO # 0.0 103/ul Normal 0.0-0.1 [facility] Comment on above: Performed By: #### C BC ####[facility] [address]fojnvlbqc[address] [place], [place] [address]Dr. Nahed Yañez Basophils/100 WBC (Bld) 0.2 % Normal 0.2-2.0 [facility] Comment on above: Performed By: #### C BC ####[facility] Gkuutcqrne04[address] [place] [address]Dr. Nahed Yañez EO # 0.1 103/ul Normal 0.0-0.7 [facility] Comment on above: Performed By: #### C BC ####[facility] Lraodpatbt6124 [place] [address]Dr. Nahed Yañez Eosinophils/100 WBC (Bld) 0.8 % Critically low 0.9-7.0 [facility] Comment on above: Performed By: #### C BC ####[facility] [address]zvjra[address] [place], [place] [address]Dr. Nahed Yañez Erythrocyte distribution width (RBC) [Ratio] 14.9 % Normal 11.0-15.0 [facility] Comment on above: Performed By: #### C BC ####[facility] Sfryziqlkm[address] [place], [place] [address]Dr. Nahed Yañez Hematocrit (Bld) [Volume fraction] 45.8 % Normal 36.0-48.0 [facility] Comment on above: Performed By: #### C BC ####[facility] Iiimoxteno[address] [place], [place] [address]Dr. Nahed Yañez Hemoglobin (Bld) [Mass/Vol] 14.7 g/dL Normal 12.0-16.0 [facility] Comment on above: Performed By: #### C BC ####[facility] Blewabwayh[address] [place], [place] [address]Dr. Nahed Yañez IG # 0.07 10e3/ul Critically high 0.00-0.03 The [facility] Comment on above: Performed By: #### C BC ####[facility] [address]jrymdgxst[address] [place], [place] [address]Dr. Nahed Yañez IG % 0.4 % Normal 0.0-0.5 [facility] Comment on above: Performed By: #### C BC ####[facility] Ngpxhknyir026[address] [place] [address]Dr. Nahed Otilio LYMPH # 2.3 103/ul Normal 1.2-3.8 [facility] Comment on above: Performed By: #### C BC ####[facility] Jillnkgjtu2857 [place] [address]Dr. Nahed Otilio Lymphocytes/100 WBC (Bld) 12.5 % Critically low 20.5-60.0 [facility] Comment on above: Performed By: #### C BC ####[facility] Fljymxojtv22[address] [place] [address]Dr. Nahed Otilio MANUAL DIFF REQ NO Normal [facility] Comment on above: Performed By: #### C BC ####[facility] Aezwdtetvs4703 [place] [address]Dr. Nahed Otilio MCH (RBC) [Entitic mass] 28.0 pg Normal 26.7-34.0 [facility] Comment on above: Performed By: #### C BC ####[facility] [address]xlakp[address] [place], [place] [address]Dr. Nahed Otilio MCHC (RBC) [Mass/Vol] 32.1 g/dL Normal 29.9-35.2 [facility] Comment on above: Performed By: #### C BC ####[facility] Dclrjsvnej80[address] [place] [address]Dr. Nahed Otilio MCV (RBC) [Entitic vol] 87.2 fL Normal 81.0-99.0 [facility] Comment on above: Performed By: #### C BC ####[facility] Tbzqtumsgv5[address] [place] [address]Dr. Nahed Otilio MONO # 0.9 103/ul Critically high 0.3-0.8 [facility] Comment on above: Performed By: #### C BC ####[facility] Bnfinvjnsh[address] [place], [place] [address]Dr. Nahed Otilio Monocytes/100 WBC (Bld) 5.1 % Normal 1.7-12.0 [facility] Comment on above: Performed By: #### C BC ####[facility] [address]edwn[address] [place] [address]Dr. Nahed Yañez NEUT # 14.6 103/ul Critically high 1.4-6.5 [facility] Comment on above: Performed By: #### C BC ####[facility] Cjkhomkzzg[address] [place] [address]Dr. Nahed Yañez Neutrophils/100 WBC (Bld) 81.0 % Critically high 43.0-75.0 [facility] Comment on above: Performed By: #### C BC ####[facility] Sybjbrmmkw[address] [place] [address]Dr. Nahed Yañez Platelet mean volume (Bld) [Entitic vol] 10.3 fL Normal 9.5-13.5 [facility] Comment on above: Performed By: #### C BC ####[facility] Nxgymvwzsh5[address] [place] [address]Dr. Nahed Yañez PLT 280 103/ul Normal 150-450 [facility] Comment on above: Performed By: #### C BC ####[facility] Qncssrlyps[address] [place], [place] [address]Dr. Nahed Yañez RBC 5.25 106/ul Normal 4.20-5.40 [facility] Comment on above: Performed By: #### C BC ####[facility] Wnjbrnshay[address] [place], [place] [address]Dr. Nahed Yañez WBC 18.1 103/ul Critically high 4.0-11.0 [facility] Comment on above: Performed By: #### C BC ####[facility] Qbvffaewey[address] [place], [place] [address]Dr. Rosemarieashley Yañez PROF CHEM 8 (BAS METB)on Anion gap [Moles/Vol] 13.5 mmol/L Normal [facility] Comment on above: Performed By: #### B MP, BNP, CMADM ####[facility] Ghfnpyugan[address] [place] [address]Dr. Nahed Yañez Calcium [Mass/Vol] 9.5 mg/dL Normal 8.5-10.1 [facility] Comment on above: Performed By: #### B MP, BNP, CMADM ####[facility] Nfygirjgvj[address] [place] [address]Dr. Nahed Yañez Chloride [Moles/Vol] 102 mmol/L Normal 98-107 [facility] Comment on above: Performed By: #### B MP, BNP, CMADM ####[facility] Unkflksbtv[address] [place] [address]Dr. Nahed Yañez CO2 [Moles/Vol] 26.6 mmol/L Normal 21.0-32.0 [facility] Comment on above: Performed By: #### B MP, BNP, CMADM ####[facility] L[address]qcaovuk[address] [place] [address]Dr. aNhed Yañez Creatinine [Mass/Vol] 1.06 mg/dL Critically high 0.55-1.02 [facility] Comment on above: Performed By: #### B MP, BNP, CMADM ####[facility] Glucsveimi[address] [place], [place] [address]Dr. Nahed Yañez EGFR-AF VINCENTIAN >60 Normal >=60 [facility] Comment on above: Performed By: #### B MP, BNP, CMADM ####[facility] Mqybrigywt[address] [place], [place] [address]Dr. Nahed Yañez EGFR-NON AF VINCENTIAN 53 mL/min/1.73m2 Critically low >=60 [facility] Comment on above: Performed By: #### B MP, BNP, CMADM ####[facility] Rjqbmubydv[address] [place] [address]Dr. Nahed Yañez Glucose [Mass/Vol] 108 mg/dL Critically high 74-106 [facility] Comment on above: Performed By: #### B MP, BNP, CMADM ####[facility] Hctdbkldsx[address] [place], [place] [address]Dr. Nahed Yañez Potassium [Moles/Vol] 4.1 mmol/L Normal 3.5-5.1 [facility] Comment on above: Performed By: #### B MP, BNP, CMADM ####[facility] Enktnuwkhc[address] [place] [address]Dr. Nahed Yañez Sodium [Moles/Vol] 138 mmol/L Normal 136-145 [facility] Comment on above: Performed By: #### B MP, BNP, CMADM ####[facility] Mhngulthzi[address] [place], [place] [address]El. Nahed Yañez Urea nitrogen [Mass/Vol] 9.0 mg/dL Normal 7.0-18.0 [facility] Comment on above: Performed By: #### B MP, BNP, CMADM ####[facility] Jgrhggevxm6703 [place], [place] [address]Fu. Rosemarieashley Yañez Urea nitrogen/Creatinine [Mass ratio] 8.5 mg/mg Normal [facility] Comment on above: Performed By: #### B MP, BNP, CMADM ####[facility] L[address]llj[address] [place], [place] [address]Ke. Nahed Yañez Cardiovascular Lab Reporton 11-03-2021 Cardiovascular Lab Report [facility] Patient Name: Vivian Vann [facility] MR #: [id number] Physician: Gasper Avendano, Department of M.D. Medicine Service Date: 11/02/2021 Division of Birthdate: 1960 Cardiology Room #: 4AB [id number] Adult Cardiovascular Services [place] [address] Cardiovascular Laboratory Report FINAL IMPRESSIONS: 1. Severe, [...] anterior descending coronary artery, placement of a 6-Turkish MynxGrip closure device. METHODS: After risks, benefits, and alternatives were explained, written informed consent was obtained. The patient was prepped and draped in usual sterile fashion over both groins. Using 1% lidocaine solution, local infiltration anesthesia was achieved over the right groin. Under ultrasound guidance, a micropuncture kit was used to access the right common femoral artery. This was upsized to a 6-Turkish 11 cm sheath. Angiography via the 6-Turkish sheath was performed. Bilateral selective coronary angiography was performed using JL4 and JR4 catheters. After reviewing the images, it was elected to proceed with an interventional procedure. A 6-Turkish XB3.5 guide catheter was advanced over a [...] artery, angiography was repeated initially using a 6-Turkish 3DRC catheter and subsequently using a 4-Turkish JR4 catheter. After administration of intracoronary nitroglycerin, the concerning lesion almost completely resolved. There was a residual mild stenosis. All catheters removed. A 6-Turkish MynxGrip closure device was deployed per protocol [...] and anatomy suitable for closure device. INDICATION: Gdq-ZO-[id number] myocardial infarction. Electronically Signed by: Gasper Avendano M.D. 11/21/2021 02:07 P Gasper Avendano M.D (more content not included)... Normal [facility] CBC COMPLETE BLOOD COUNTon 0 - Erythrocyte distribution width (RBC) [Ratio] 14.7 % Normal 11.5-15.0 [facility] Comment on above: Order Comment: No: D o not add to previous draw Performed By: #### 3 4220, 03035 #### [facility] [address] Hematocrit (Bld) [Volume fraction] 34.5 % Low 36.0-45.0 [facility] Comment on above: Order Comment: No: D o not add to previous draw Performed By: #### 3 9940, 14983 #### [facility] [address] [place] [address], [facility] Hemoglobin (Bld) [Mass/Vol] 10.6 g/dL Low 12.0-15.0 [facility] Comment on above: Order Comment: No: D o not add to previous draw Performed By: #### 3 5030, 33731 #### [facility] [address] [place] [address], [facility] MCH (RBC) [Entitic mass] 28.1 pg Normal 27.0-33.0 [facility] Comment on above: Order Comment: No: D o not add to previous draw Performed By: #### 3 520, 53265 #### [facility] [address] [place] [address], [facility] MCHC (RBC) [Mass/Vol] 30.7 g/dL Low 32.0-35.0 [facility] Comment on above: Order Comment: No: D o not add to previous draw Performed By: #### 3 5199, 36055 #### [facility] [address] [place] [address], [facility] MCV (RBC) [Entitic vol] 91.5 fL Normal 82.0-98.0 [facility] Comment on above: Order Comment: No: D o not add to previous draw Performed By: #### 3 5199, 65020 #### [facility] [address] [place] [address], [facility] Nucleated RBC/100 WBC (Bld) [Ratio] 0 % Normal 0-0 [facility] Comment on above: Order Comment: No: D o not add to previous draw Performed By: #### 3 5199, 89537 #### [facility] [address] [place] [address], [facility] PLAT CNT 219 10*3/uL Normal 150-400 [facility] Comment on above: Order Comment: No: D o not add to previous draw Performed By: #### 3 5199, 31099 #### [facility] [address] [place] [address], [facility] RBC (Bld) [#/Vol] 3.77 10*6/uL Low 3.80-5.00 [facility] Comment on above: Order Comment: No: D o not add to previous draw Performed By: #### 3 5199, 27449 #### [facility] [address] [place] [address], [facility] WBC (Bld) [#/Vol] 13.64 10*3/uL High 4.00-10.60 [facility] Comment on above: Order Comment: No: D o not add to previous draw Performed By: #### 3 5200, 24169 #### [facility] [address] [place] [address], [facility] HEMOGLOBIN A1Con 11-02-2021 Glucose [Moles/Vol] 140 mmol/L Normal [facility] Comment on above: Order Comment: No: D o not add to previous draw Performed By: #### 3 1791 #### [facility] [address] [place] [address], [facility] HbA1c (Bld) [Mass fraction] 6.5 % High 4.0-6.0 [facility] Comment on above: Order Comment: No: D o not add to previous draw Performed By: #### 3 1791 #### [facility] [address] [place] [address], [facility] LIPID PROFILEon 11-02-2021 Cholesterol [Mass/Vol] 171 mg/dL Normal 120-200 [facility] Comment on above: Order Comment: No: D o not add to previous draw Result Comment: CHOL ESTEROL REFERENCE RANGE: 20 YEARS AND OLDER CARDIOVASCULAR RISK Less than 200 mg/dl Low Risk 200 to 239 mg/dl Borderline Risk 240 mg/dl and greater High Risk Performed By: #### 3 5200, 55608 #### [facility] [address] [place] [address], [facility] Cholesterol in HDL [Mass/Vol] 57 mg/dL Normal 23-92 [facility] Comment on above: Order Comment: No: D o not add to previous draw Result Comment: Slig ht variation in normal range could be due to gender and/or age. HDL CHOLESTEROL REFERENCE RANGE: 20 years and older Cardiovascular Risk > or =60 mg/dL Desirable 40 TO 59 mg/dL Low Risk <40 mg/dL High Risk Performed By: #### 3 5200, 95428 #### [facility] [address] [place] [address], [facility] Cholesterol in LDL [Mass/Vol] 89 mg/dL Normal 0-130 [facility] Comment on above: Order Comment: No: D o not add to previous draw Result Comment: LDL IS A CALCULATION LDL IS ONLY VALID IF THE TRIG IS LESS THAN 400. Performed By: #### 3 5200, 33982 #### [facility] [address] [place] [address], [facility] Cholesterol.total/Chol esterol in HDL [Mass ratio] 3.0 {ratio} Normal .0-4.5 [facility] Comment on above: Order Comment: No: D o not add to previous draw Performed By: #### 3 5200, 58497 #### [facility] [address] [place] [address], [facility] NON-HDL CHOLESTEROL 114 mg/dL Normal [facility] Comment on above: Order Comment: No: D o not add to previous draw Performed By: #### 3 5200, 18913 #### [facility] [address] [place] [address], [facility] Triglyceride [Mass/Vol] 124 mg/dL Normal 40-149 [facility] Comment on above: Order Comment: No: D o not add to previous draw Result Comment: TRIG LYCERIDE REFERENCE RANGE: 20 YEARS AND OLDER CARDIOVASCULAR RISK LESS THAN 150 mg/dl LOW RISK 150 TO 199 mg/dl BORDERLINE RISK 200 mg/dl AND GREATER HIGH RISK Performed By: #### 3 5200, 14595 #### [facility] [address] [place] [address], [facility] VLDL CHOL 25 mg/dL Normal 0-40 [facility] Comment on above: Order Comment: No: D o not add to previous draw Performed By: #### 3 5200, 40594 #### [facility] [address] [place] [address], [facility] TROPONIN-Ion 11-02-2021 Troponin I.cardiac [Mass/Vol] 0.14 ng/mL Critically high 0.00-0.04 [facility] Comment on above: Result Comment: M-MT EVIOUS CRITICAL RESULT REFERENCE RANGES: 0.00 - 0.04 ng/ml NORMAL 0.05 - 0.50 ng/ml INDETERMINATE > 0.50 ng/ml CONSISTENT WITH AN M.I. Performed By: #### 3 5200, 71153 #### [facility] [address] Troponin I.cardiac [Mass/Vol] 0.19 ng/mL Critically high 0.00-0.04 [facility] Comment on above: Order Comment: No: D o not add to previous draw Result Comment: M-MT EVIOUS CRITICAL RESULT REFERENCE RANGES: 0.00 - 0.04 ng/ml NORMAL 0.05 - 0.50 ng/ml INDETERMINATE > 0.50 ng/ml CONSISTENT WITH AN M.I. Performed By: #### 3 5200 #### [facility] [address] [place] [address], [facility] TYPE AND SCREENon 11-02-2021 ABO INTERPRETATION O Normal [facility] Comment on above: Performed By: #### 3 5200, 32164 #### [facility] [address] [place] [address], [facility] RH INTERPRETATION Positive Normal [facility] Comment on above: Performed By: #### 3 5200, 03955 #### [facility] [address] [place] [address], [facility] UFH HEPARIN ASSAYon 11-03-19 22 UNFRACTIONATED HEPARIN 0.76 IU/mL High 0.30-0.70 [facility] Comment on above: Result Comment: Clare roxaban and Apixaban will interfere with the anti Xa assay used to monitor UFH and LMWH. Performed By: #### 3 5200, 27113 #### [facility] [address] [facility] [address] UNFRACTIONATED HEPARIN 0.96 IU/mL Critically high 0.30-0.7 0 [facility] Comment on above: Result Comment: Resu lt checked and called. Accurately read back by Kathy Suárez RN at 0548 Rivaroxaban and Apixaban will interfere with the anti Xa assay used to monitor UFH and LMWH. Performed By: #### 3 0477 #### [facility] 3000 [facility]. [address] APTTon 11-01-2021 aPTT Coag (Bld) [Time] 28.6 s Normal 25.0-35.0 [facility] Comment on above: Order Comment: No: D [...] THIS PURPOSE. Performed By: #### 3 5200, 35776 #### [facility] [address] [place] [address], [facility] BNPon 11-01-2021 Natriuretic peptide B (Bld) [Mass/Vol] 9643.0 pg/mL Critically high <=900.0 [facility] Comment on above: Performed By: #### C MP, BNP, HSTROPN ####[facility] Ix[address]necafn[address]96 [place], [place] [address]Ls. Nahed Yañez BNP (B-TYPE NATRIURETIC PEPT AYLEEN)on 11-01-2021 Natriuretic peptide B (Bld) [Mass/Vol] 768 pg/mL High 0-100 [facility] Comment on above: Order Comment: No: D o not add to previous draw Result Comment: Give n the appropriate clinical setting a BNP result of >100 pg/mL indicates congestive heart failure. Performed By: #### 8 5123 #### [facility] [address] [place] [address], [facility] CBC AUTO DIFFon 11-01-2021 BASO # 0.0 103/ul Normal 0.0-0.1 [facility] Comment on above: Performed By: #### C BC ####[facility] U[address] [place], [place] [address]Dr. Nahed Yañez Basophils/100 WBC (Bld) 0.1 % Critically low 0.2-2.0 [facility] Comment on above: Performed By: #### C BC ####[facility] Apxh[address] [place], [place] [address]Dr. Nahed Yañez EO # 0.0 103/ul Normal 0.0-0.7 [facility] Comment on above: Performed By: #### C BC ####[facility] Ccf[address]zigkns[address] [place], [place] [address]Dr. Nahed Yañez Eosinophils/100 WBC (Bld) 0.0 % Critically low 0.9-7.0 [facility] Comment on above: Performed By: #### C BC ####[facility] Aghk[address]wh[address] [place], [place] [address]Dr. Nahed Yañez Erythrocyte distribution width (RBC) [Ratio] 14.7 % Normal 11.0-15.0 [facility] Comment on above: Performed By: #### C BC ####[facility] Bfislunose[address] [place], [place] [address]Dr. Nahed Yañez Hematocrit (Bld) [Volume fraction] 36.1 % Normal 36.0-48.0 [facility] Comment on above: Performed By: #### C BC ####[facility] Ryfqcsnlpv[address] [place], [place] [address]Dr. Nahed Yañez Hemoglobin (Bld) [Mass/Vol] 11.1 g/dL Critically low 12.0-16.0 [facility] Comment on above: Result Comment: IV a ntibiotics Performed By: #### C BC ####[facility] Xjj[address] [place], [place] [address]Dr. Nahed Yañez IG # 0.09 10e3/ul Critically high 0.00-0.03 [facility] Comment on above: Performed By: #### C BC ####[facility] [address] [place] [address]Dr. Nahed Yañez IG % 0.7 % Critically high 0.0-0.5 [facility] Comment on above: Performed By: #### C BC ####[facility] Ruxdllyugd2625 [place] [address]Dr. Nahed Yañez LYMPH # 0.6 103/ul Critically low 1.2-3.8 [facility] Comment on above: Performed By: #### C BC ####[facility] Egccqabnpv3851 [place] [address]Dr. Nahed Yañez Lymphocytes/100 WBC (Bld) 4.8 % Critically low 20.5-60.0 [facility] Comment on above: Performed By: #### C BC ####[facility] Uvupmvkmmp26[address] [place] [address]Dr. Nahed Yañez MANUAL DIFF REQ NO Normal [facility] Comment on above: Performed By: #### C BC ####[facility] Gyzautjdkn3916 [place] [address]Dr. Nahed Yañez MCH (RBC) [Entitic mass] 28.2 pg Normal 26.7-34.0 [facility] Comment on above: Performed By: #### C BC ####[facility] Qlmrdhddfw1138 [place] [address]Dr. Nahed Yañez MCHC (RBC) [Mass/Vol] 30.7 g/dL Normal 29.9-35.2 [facility] Comment on above: Performed By: #### C BC ####[facility] Zqymfbowpx[address]65 [place] [address]Dr. Nahed Yañez MCV (RBC) [Entitic vol] 91.9 fL Normal 81.0-99.0 [facility] Comment on above: Performed By: #### C BC ####[facility] Pm[address]yhngah6410 [place] [address]Dr. Nahed Yañez MONO # 0.2 103/ul Critically low 0.3-0.8 [facility] Comment on above: Performed By: #### C BC ####[facility] Zdhpefbirm1089 [place] [address]Dr. Nahed Yañez Monocytes/100 WBC (Bld) 1.7 % Normal 1.7-12.0 [facility] Comment on above: Performed By: #### C BC ####[facility] Bohibxkvpc6927 [place] [address]Dr. Nahed Yañez NEUT # 11.2 103/ul Critically high 1.4-6.5 [facility] Comment on above: Performed By: #### C BC ####[facility] [address]trkfvnh[address] [place] [address]Dr. Nahed Yañez Neutrophils/100 WBC (Bld) 92.7 % Critically high 43.0-75.0 [facility] Comment on above: Performed By: #### C BC ####[facility] Vpihhztynb[address] [place] [address]Dr. Nahed Yañez Platelet mean volume (Bld) [Entitic vol] 11.1 fL Normal 9.5-13.5 [facility] Comment on above: Performed By: #### C BC ####[facility] Cmemreczqb[address] [place] [address]Dr. Nahed Yañez PLT 213 103/ul Normal 150-450 [facility] Comment on above: Performed By: #### C BC ####[facility] Yrpuy[address]ikeh[address] [place] [address]Dr. Nahed Yañez RBC 3.93 106/ul Critically low 4.20-5.40 [facility] Comment on above: Performed By: #### C BC ####[facility] Ysrjozjkdm8988 [place] [address]Dr. Nahed Yañez WBC 12.0 103/ul Critically high 4.0-11.0 [facility] Comment on above: Performed By: #### C BC ####[facility] Nlghmdusvd6302 [place] [address]Dr. Nahed Yañez CBC W/DIFFon 11-01-2021 ABS IMM GRANS 0.2 10*3/uL Normal 0.0-0.2 [facility] Comment on above: Order Comment: No: D o not add to previous draw Performed By: #### 3 5200, 13287 #### [facility] [address] [place] [address], [facility] ABS NEUTROPHILS 12.5 10*3/uL High 1.6-7.6 [facility] Comment on above: Order Comment: No: D o not add to previous draw Performed By: #### 3 5199, 85730 #### [facility] [address] [place] [address], [facility] Basophils (Bld) [#/Vol] 0.0 10*3/uL Normal 0.0-0.2 [facility] Comment on above: Order Comment: No: D o not add to previous draw Performed By: #### 3 5199, 85134 #### [facility] [address] [place] [address], [facility] Basophils/100 WBC (Bld) 0.0 % Normal 0.0-1.0 [facility] Comment on above: Order Comment: No: D o not add to previous draw Performed By: #### 3 5199, 75279 #### [facility] [address] [place] [address], [facility] Eosinophils (Bld) [#/Vol] 0.0 10*3/uL Normal 0.0-0.5 [facility] Comment on above: Order Comment: No: D o not add to previous draw Performed By: #### 3 5199, 90169 #### [facility] [address] [place] [address], [place] Eosinophils/100 WBC (Bld) 0.0 % Normal 0.0-6.0 [facility] Comment on above: Order Comment: No: D o not add to previous draw Performed By: #### 3 5199, 65438 #### [facility] [address] [place] [address], [place] Erythrocyte distribution width (RBC) [Ratio] 14.6 % Normal 11.5-15.0 [facility] Comment on above: Order Comment: No: D o not add to previous draw Performed By: #### 3 5199, 61328 #### [facility] [address] [place] [address], [facility] Hematocrit (Bld) [Volume fraction] 36.6 % Normal 36.0-45.0 [facility] Comment on above: Order Comment: No: D o not add to previous draw Performed By: #### 3 5199, 75067 #### [facility] [address] [place] [address], [facility] Hemoglobin (Bld) [Mass/Vol] 11.4 g/dL Low 12.0-15.0 [facility] Comment on above: Order Comment: No: D o not add to previous draw Performed By: #### 3 5199, 77915 #### [facility] [address] [place] [address], [facility] IMMATURE GRANS 1.2 % High 0.0-1.0 [facility] Comment on above: Order Comment: No: D o not add to previous draw Performed By: #### 3 5199, 01716 #### [facility] [address] [place] [address], [facility] Lymphocytes (Bld) [#/Vol] 0.6 10*3/uL Low 1.2-4.0 [facility] Comment on above: Order Comment: No: D o not add to previous draw Performed By: #### 3 5199, 98253 #### [facility] [address] [place] [id number], [place] Lymphocytes/100 WBC (Bld) 4.2 % Low 20.0-45.0 [facility] Comment on above: Order Comment: No: D o not add to previous draw Performed By: #### 3 5199, 39747 #### [facility] [address] [place] [address], [facility] MCH (RBC) [Entitic mass] 28.2 pg Normal 27.0-33.0 [facility] Comment on above: Order Comment: No: D o not add to previous draw Performed By: #### 3 0, 16626 #### [facility] [address] [place] [address], [facility] MCHC (RBC) [Mass/Vol] 31.1 g/dL Low 32.0-35.0 The [facility] Comment on above: Order Comment: No: D o not add to previous draw Performed By: #### 3 5199, 72116 #### [facility] [address] [place] [address], [facility] MCV (RBC) [Entitic vol] 90.6 fL Normal 82.0-98.0 [facility] Comment on above: Order Comment: No: D o not add to previous draw Performed By: #### 3 5199, 11634 #### [facility] [address] [place] [address], [facility] Monocytes (Bld) [#/Vol] 0.5 10*3/uL Normal 0.1-1.0 [facility] Comment on above: Order Comment: No: D o not add to previous draw Performed By: #### 3 5199, 44010 #### [facility] [address] [place] [address], [facility] MONOS 3.3 % Low 5.0-12.0 [facility] Comment on above: Order Comment: No: D o not add to previous draw Performed By: #### 3 5199, 17520 #### [facility] [address] [place] [address], [facility] Neutrophils/100 WBC (Bld) 91.3 % High 40.0-72.0 [facility] Comment on above: Order Comment: No: D o not add to previous draw Performed By: #### 3 5200, 64935 #### [facility] [address] [place] [address], [facility] Nucleated RBC/100 WBC (Bld) [Ratio] 0 % Normal 0-0 [facility] Comment on above: Order Comment: No: D o not add to previous draw Performed By: #### 3 5200, 74222 #### [facility] [address] [place] [id number], [facility] PLAT CNT 224 10*3/uL Normal 150-400 [facility] Comment on above: Order Comment: No: D o not add to previous draw Performed By: #### 3 5200, 34362 #### [facility] [address] [place] [address], [facility] RBC (Bld) [#/Vol] 4.04 10*6/uL Normal 3.80-5.00 [facility] Comment on above: Order Comment: No: D o not add to previous draw Performed By: #### 3 5200, 82562 #### [facility] [address] [place] [address], [facility] WBC (Bld) [#/Vol] 13.70 10*3/uL High 4.00-10.60 [facility] Comment on above: Order Comment: No: D o not add to previous draw Performed By: #### 3 5200, 58173 #### [facility] [address] [place] [id number], [facility] COMP METABOLIC PANELon 11-01 Albumin [Mass/Vol] 3.7 g/dL Normal 3.5-5.7 [facility] Comment on above: Order Comment: No: D o not add to previous draw Performed By: #### 0 0121, 11640, 84130 #### [facility] [address] [place] [id number], [facility] ALKALINE PHOSPH 54 IU/L Normal 34-104 [facility] Comment on above: Order Comment: No: D o not add to previous draw Performed By: #### 0 0121, 54881, 19297 #### [facility] [address] [place] [address], [place] ALT [Catalytic activity/Vol] 12 U/L Normal 7-52 [facility] Comment on above: Order Comment: No: D o not add to previous draw Performed By: #### 0 0121, 64269, 74919 #### [facility] [address] [place] [address], [place] AST [Catalytic activity/Vol] 17 U/L Normal 13-39 [facility] Comment on above: Order Comment: No: D o not add to previous draw Performed By: #### 0 0121, 47317, 03091 #### [facility] [address] [place] [address], [place] Bilirubin [Mass/Vol] 0.3 mg/dL Normal 0.3-1.0 [facility] Comment on above: Order Comment: No: D o not add to previous draw Performed By: #### 0 0121, 67064, 23578 #### [facility] [address] [place] [address], [place] Calcium [Mass/Vol] 9.4 mg/dL Normal 8.6-10.3 [facility] Comment on above: Order Comment: No: D o not add to previous draw Performed By: #### 0 0121, 40940, 70939 #### [facility] [address] [place] [address], [place] Chloride [Moles/Vol] 100 mmol/L Normal 98-107 [facility] Comment on above: Order Comment: No: D o not add to previous draw Performed By: #### 0 0121, 85931, 71934 #### [facility] [address] [place] [address], [place] CO2 [Moles/Vol] 29 mmol/L Normal 21-31 [facility] Comment on above: Order Comment: No: D o not add to previous draw Performed By: #### 0 0121, 18172, 81270 #### [facility] [address] [place] [address], [place] Creatinine [Mass/Vol] 1.04 mg/dL Normal 0.60-1.20 [facility] Comment on above: Order Comment: No: D o not add to previous draw Performed By: #### 0 0121, 26095, 37685 #### [facility] [address] [place] [address], [place] eGFR- non- 54 ml/min/1.73sq m Abnormal >60 [facility] Comment on above: Order Comment: No: D o not add to previous draw Performed By: #### 0 0121, 21585, 99624 #### [facility] [address] [place] [address], [place] GFR/1.73 sq M.predicted among blacks MDRD (S/P/Bld) [Vol rate/Area] mL/min/{1.73_m2} Normal >60 [facility] Comment on above: Order Comment: No: D o not add to previous draw Performed By: #### 0 0121, 92032, 83870 #### [facility] [address] [place] [address], [place] Glucose [Mass/Vol] 239 mg/dL High 70-100 [facility] Comment on above: Order Comment: No: D o not add to previous draw Performed By: #### 0 0121, 02578, 50889 #### [facility] [address] [place] [address], [place] Potassium [Moles/Vol] 4.3 mmol/L Normal 3.5-5.1 [facility] Comment on above: Order Comment: No: D o not add to previous draw Performed By: #### 0 0121, 43503, 69175 #### [facility] [address] [place] [address], [place] Protein [Mass/Vol] 5.6 g/dL Low 6.0-8.3 [facility] Comment on above: Order Comment: No: D o not add to previous draw Performed By: #### 0 0121, 10507, 95120 #### [facility] [address] [place] [address], [facility] Sodium [Moles/Vol] 139 mmol/L Normal 136-145 [facility] Comment on above: Order Comment: No: D o not add to previous draw Performed By: #### 0 0121, 87942, 30154 #### [facility] [address] [place] [address], [facility] Urea nitrogen [Mass/Vol] 24 mg/dL Normal 7-25 [facility] Comment on above: Order Comment: No: D o not add to previous draw Performed By: #### 0 0121, 95441, 69123 #### [facility] [address] [place] [address], [facility] MAGNESIUM BLOODon 11-01-2021 Magnesium [Mass/Vol] 2.0 mg/dL Normal 1.9-2.7 [facility] Comment on above: Order Comment: No: D o not add to previous draw Performed By: #### 0 0121, 63675, 72147 #### [facility] [address] [place] [address], [facility] PROF 14(COMP METB)on 022 Albumin [Mass/Vol] 3.1 g/dL Critically low 3.4-5.0 [facility] Comment on above: Performed By: #### C MP, BNP, HSTROPN ####[facility] [address] [place] [address]DrShaun Yañez Albumin/Globulin [Mass ratio] 1.0 {ratio} Normal [facility] Comment on above: Performed By: #### C MP, BNP, HSTROPN ####[facility] [address] [place] [address]DrShaun Yañez ALP [Catalytic activity/Vol] 56 U/L Normal 46-116 [facility] Comment on above: Performed By: #### C MP, BNP, HSTROPN ####[facility] [address] [place] [address]Dr. Nahed Yañez ALT [Catalytic activity/Vol] 19 U/L Normal 14-59 [facility] Comment on above: Performed By: #### C MP, BNP, HSTROPN ####[facility] [address] [place] [address]Dr. Nahed Yañez Anion gap [Moles/Vol] 14.3 mmol/L Normal Th e [facility] Comment on above: Performed By: #### C MP, BNP, HSTROPN ####[facility] [address] [place], [place] [address]Dr. Nahed Yañez AST [Catalytic activity/Vol] 18 U/L Normal 15-37 [facility] Comment on above: Performed By: #### C MP, BNP, HSTROPN ####[facility] [address]ds[address] [place] [address]Dr. Nahed Yañez Bilirubin [Mass/Vol] 0.4 mg/dL Normal 0.2-1.0 [facility] Comment on above: Performed By: #### C MP, BNP, HSTROPN ####[facility] [address] [place] [address]Dr. Nahed Yañez Calcium [Mass/Vol] 9.3 mg/dL Normal 8.5-10.1 [facility] Comment on above: Performed By: #### C MP, BNP, HSTROPN ####[facility] [address] [place] [address]Dr. Nahed Yañez Chloride [Moles/Vol] 102 mmol/L Normal 98-107 [facility] Comment on above: Performed By: #### C MP, BNP, HSTROPN ####[facility] [address] [place] [address]Dr. Nahed Yañez CO2 [Moles/Vol] 27.1 mmol/L Normal 21.0-32.0 [facility] Comment on above: Performed By: #### C MP, BNP, HSTROPN ####[facility] [address] [place] [address]Dr. Nahed Yañez Creatinine [Mass/Vol] 1.25 mg/dL Critically high 0.55-1.02 [facility] Comment on above: Performed By: #### C MP, BNP, HSTROPN ####[facility] [address] [place] [address]Dr. Nahed Yañez EGFR-AF VINCENTIAN 53 mL/min/1.73m2 Critically low >=60 [facility] Comment on above: Performed By: #### C MP, BNP, HSTROPN ####[facility] [address] [place], [place] [address]Dr. Nahed Yañez EGFR-NON AF VINCENTIAN 44 mL/min/1.73m2 Critically low >=60 [facility] Comment on above: Performed By: #### C MP, BNP, HSTROPN ####[facility] R[address] [place], [place] [address]Dr. Nahed Yañez Globulin (S) [Mass/Vol] 3.2 g/dL Normal [facility] Comment on above: Performed By: #### C MP, BNP, HSTROPN ####[facility] W[address] [place], [place] [address]Dr. Nahed Yañez Glucose [Mass/Vol] 248 mg/dL Critically high 74-106 T [facility] Comment on above: Performed By: #### C MP, BNP, HSTROPN ####[facility] [address] [place], [place] [address]Dr. Nahed Yañez Potassium [Moles/Vol] 3.4 mmol/L Critically low 3.5-5.1 [facility] Comment on above: Performed By: #### C MP, BNP, HSTROPN ####[facility] [address]ks[address] [place], [place] [address]Dr. Nahed Yañez Protein [Mass/Vol] 6.3 g/dL Critically low 6.4-8.2 Th [facility] Comment on above: Performed By: #### C MP, BNP, HSTROPN ####[facility] [address] [place] [id number]. Nahed Yañez Sodium [Moles/Vol] 140 mmol/L Normal 136-145 [facility] Comment on above: Performed By: #### C MP, BNP, HSTROPN ####[facility] [address] [place] [id number]. Nahed Yañez Urea nitrogen [Mass/Vol] 18.0 mg/dL Normal 7.0-18.0 [facility] Comment on above: Performed By: #### C MP, BNP, HSTROPN ####[facility] [address] [place] [address]Dr. Nahed Yañez Urea nitrogen/Creatinine [Mass ratio] 14.4 mg/mg Normal [facility] Comment on above: Performed By: #### C MP, BNP, HSTROPN ####[facility] [address] [place] [address]Dr. Nahed Otilio PROTHROMBIN TIMEon 2 INR Coag (PPP) [Relative time] 1.06 {INR} Normal 0.91-1.16 [facility] Comment on above: Order Comment: [...] 1995;108:[id number]. Performed By: #### 5 6101 #### [facility] [address] [place] [address], [facility] PT Coag (PPP) [Time] 13.8 s Normal 12.3-14.8 [facility] Comment on above: Order Comment: No: D o not add to previous draw Result Comment: ALL RESULTS MUST BE INTERPRETED WITH RESPECT TO BLOOD DRAWING ARTIFACT OR DILUTION ERROR OF ANTICOAGULANT AT THE TIME OF SAMPLING. Performed By: #### 5 6101 #### [facility] [address] [place] [address], [facility] TROPONIN, HIGH SENSITIVITYon 11-01-2021 HSTROP 1684.4 pg/mL Critically high 4.0-51.3 [facility] Comment on above: Result Comment: CUT- OFF POINTS HAVE BEEN ESTABLISHED BASED ON THE FOURTH UNIVERSAL DEFINITIONS OF MYOCARDIALINFARCTION. THE UPPER REFERENCE LIMIT (URL) OF TROPONIN, DEFINED THE 99TH PERCENTILE OFcTnI DISTRIBUTION IN A REFERENCE POPULATION, HAS BEEN CONFIRMED THE DECISION THRESHOLDFOR [place] DIAGNOSIS. Performed By: #### C MP, BNP, HSTROPN ####[facility] [address] [place] [address]DrShaun Yañez TROPONIN-Ion 11-01-2021 Troponin I.cardiac [Mass/Vol] 0.22 ng/mL Critically high 0.00-0.04 [facility] Comment on above: Order Comment: No: D o not add to previous draw Result Comment: M-TR OPONIN INITIAL CRITICAL HIGH; RESPUN AND RETESTED M-CRITICAL RESULT(S) REVIEWED, CALLED TO AND READ BACK BY Kathy Suárez RN at 2205. REFERENCE RANGES: 0.00 - 0.04 ng/ml NORMAL 0.05 - 0.50 ng/ml INDETERMINATE > 0.50 ng/ml CONSISTENT WITH AN M.I. Performed By: #### 0 0121, 48375, 78579 #### [facility] [address] [place] [address], [facility] UFH HEPARIN ASSAYon 06-21-20 22 UNFRACTIONATED HEPARIN 0.55 IU/mL Normal 0.30-0.70 Th e [facility] Comment on above: Result Comment: Clare roxaban and Apixaban will interfere with the anti Xa assay used to monitor UFH and LMWH. Performed By: #### 3 5200, 99654 #### [facility] [address] [place] [address], [facility] BLOOD GASES BTYon 10-31-2021 02 MODE ROOM AIR Normal [facility] Comment on above: Performed By: #### A BG ####[facility] [address] [place] [address]Dr. Nahed Yañez ALLENS TEST Positive Normal [facility] Comment on above: Performed By: #### A BG ####[facility] [address] [place] [address]Dr. Nahed Yañez Base excess Calc (Bld) [Moles/Vol] 3.5 mmol/L Critically high -2.0-2.0 [facility] Comment on above: Performed By: #### A BG ####[facility] [address]cup[address] [place] [address]Dr. Nahed Yañez BIPAP PRESSURE Normal [facility] Comment on above: Performed By: #### A BG ####[facility] T[address]tbf[address]fv[address] [place] [address]Dr. Nahed Yañez CO2 [Moles/Vol] 56.3 mmol/L Critically high 23.0-28.0 [facility] Comment on above: Performed By: #### A BG ####[facility] [address]zwc[address]x47[address] [place] [address]Dr. Nahed Yañez CPAP Normal [facility] Comment on above: Performed By: #### A BG ####[facility] [address] [place] [address]Dr. Nahed Yañez FIO[address] [facility] Comment on above: Performed By: #### A BG ####[facility] Lwxbbldona[address] [place] [address]Dr. Nahed Yañez HCO3 (Bld) [Moles/Vol] 26.8 mmol/L Critically high 22.0-[address] [facility] Comment on above: Performed By: #### A BG ####[facility] [address] [place], [place] [address]Dr. Nahed Yañez LPM Normal [facility] Comment on above: Performed By: #### A BG ####[facility] Lyuiasiiff[address] [place], [place] [address]Dr. Nahed Yañez MINUTE VOLUME Normal [facility] Comment on above: Performed By: #### A BG ####[facility] D[address]swt[address] [place], [place] [address]Dr. Nahed Yañez Oxygen (Bld) [Partial pressure] 51.8 mm[Hg] Critically low 80.0-100.0 [facility] Comment on above: Performed By: #### A BG ####[facility] [address]xf[address] [place], [place] [address]Dr. Nahed Yañez Oxygen saturation in Blood 86.3 % Critically low 95.0-100.0 [facility] Comment on above: Performed By: #### A BG ####[facility] [address]tvtr[address] [place], [place] [address]Dr. Nahed Yañez PCO2 43.8 mmHg Normal 35.0-45.0 [facility] Comment on above: Performed By: #### A BG ####[facility] [address] [place], [place] [address]Dr. Nahed Yañez PEEP Normal [facility] Comment on above: Performed By: #### A BG ####[facility] Axhev[address] [place], [place] [address]Dr. Nahed Yañez pH (Bld) 7.415 [pH] Normal 7.350-7.450 [facility] Comment on above: Performed By: #### A BG ####[facility] M[address] [place], [place] [address]Dr. Nahed Yañez PIP [facility] Comment on above: Performed By: #### A BG ####[facility] Inzvif[address]efi[address] [place], [place] [address]Dr. Nahed Yañez PS [facility] Comment on above: Performed By: #### A BG ####[facility] [address]ty[address]jlob[address] [place] [address]Dr. Nahed Yañez PUNCTURE SITE RR Normal [facility] Comment on above: Performed By: #### A BG ####[facility] Iqqwrpiipo35[address] [place] [address]Dr. Nahed Yañez RATE Normal [facility] Comment on above: Performed By: #### A BG ####[facility] [address]irdlrzrbr[address] [place] [address]Dr. Nahed Yañez VENT MODE Normal [facility] Comment on above: Performed By: #### A BG ####[facility] [address]udnuacwjh[address] [place] [address]Dr. Nahed Yañez [facility] Comment on above: Performed By: #### A BG ####[facility] Wjnrwysnbk[address] [place] [address]Dr. Nahed Yañez BNPon 2 Natriuretic peptide B (Bld) [Mass/Vol] 38855.0 pg/mL Critically high <=900.0 [facility] Comment on above: Performed By: #### T 4, TSH, BNP, CMADM ####[facility] X[address] [place], [place] [address]Dr. Nahed Yañez CARDIAC FRANCISCO 3-6on 2 CK [Catalytic activity/Vol] 91 U/L Normal 26-192 [facility] Comment on above: Performed By: #### C MREP ####[facility] [address]qkojef[address] [place] [address]Dr. Nahed Yañez CK.MB [Mass/Vol] 7.32 ng/mL Critically high <=3.60 [facility] Comment on above: Result Comment: test repeated critical value verified Performed By: #### C MREP ####[facility] [address] [place], [place] [address]Dr. Nahed Yañez HSTROP 2823.1 pg/mL Critically high 4.0-51.3 [facility] Comment on above: Result Comment: CUT- OFF POINTS HAVE BEEN ESTABLISHED BASED ON THE FOURTH UNIVERSAL DEFINITIONS OF MYOCARDIALINFARCTION. THE UPPER REFERENCE LIMIT (URL) OF TROPONIN, DEFINED THE 99TH PERCENTILE OFcTnI DISTRIBUTION IN A REFERENCE POPULATION, HAS BEEN CONFIRMED THE DECISION THRESHOLDFOR [place] DIAGNOSIS.test repeated critical value verified Performed By: #### C MREP ####[facility] [address]ds[address] [place] [address]Dr. Nahed Yañez CARDIAC FRANCISCO ADMITon 022 CK [Catalytic activity/Vol] 85 U/L Normal 26-192 [facility] Comment on above: Performed By: #### T 4, TSH, BNP, CMADM ####[facility] Hkwf[address]kst[address] [place] [address]Dr. Nahed Yañez CK.MB [Mass/Vol] 6.44 ng/mL Critically high <=3.60 [facility] Comment on above: Performed By: #### T 4, TSH, BNP, CMADM ####[facility] [address]nf[address]dhfx[address] [place] [address]Dr. Nahed Yañez HSTROP 3194.8 pg/mL Critically high 4.0-51.3 [facility] Comment on above: Result Comment: CUT- OFF POINTS HAVE BEEN ESTABLISHED BASED ON THE FOURTH UNIVERSAL DEFINITIONS OF MYOCARDIALINFARCTION. THE UPPER REFERENCE LIMIT (URL) OF TROPONIN, DEFINED THE 99TH PERCENTILE OFcTnI DISTRIBUTION IN A REFERENCE POPULATION, HAS BEEN CONFIRMED THE DECISION THRESHOLDFOR [place] DIAGNOSIS. Performed By: #### T 4, TSH, BNP, CMADM ####[facility] Krrqmjicxn[address] [place] [address]Dr. Nahed Yañez ANDRE 57 ng/mL Normal 9-82 [facility] Comment on above: Performed By: #### T 4, TSH, BNP, CMADM ####[facility] [address]finef[address] [place] [address]Dr. Nahed Yañez CBC AUTO DIFFon 10-31-2021 BASO # 0.0 103/ul Normal 0.0-0.1 [facility] Comment on above: Performed By: #### C BC ####[facility] [address]uro[address] [place] [address]Dr. Nahed Yañez Basophils/100 WBC (Bld) 0.2 % Normal 0.2-2.0 [facility] Comment on above: Performed By: #### C BC ####[facility] Vmpdsrsq[address] [place], [place] [address]Dr. Nahed Yañez EO # 0.0 103/ul Normal 0.0-0.7 [facility] Comment on above: Performed By: #### C BC ####[facility] Q[address]vs[address] [place], [place] [address]Dr. Nahed Yañez Eosinophils/100 WBC (Bld) 0.1 % Critically low 0.9-7.0 [facility] Comment on above: Performed By: #### C BC ####[facility] Wx[address] [place], [place] [address]Dr. Nahed Yañez Erythrocyte distribution width (RBC) [Ratio] 14.8 % Normal 11.0-15.0 [facility] Comment on above: Performed By: #### C BC ####[facility] V[address] [place], [place] [address]Dr. Nahed Yañez Hematocrit (Bld) [Volume fraction] 44.4 % Normal 36.0-48.0 [facility] Comment on above: Performed By: #### C BC ####[facility] [address]qs[address] [place], [place] [address]Dr. Nahed Yañez Hemoglobin (Bld) [Mass/Vol] 14.1 g/dL Normal 12.0-16.0 [facility] Comment on above: Performed By: #### C BC ####[facility] [address]zb[address]auq[address] [place], [place] [address]DrShaun Yañez IG # 0.04 10e3/ul Critically high 0.00-0.03 [facility] Comment on above: Performed By: #### C BC ####[facility] [address]phsxfz[address] [place], [place] [address]Dr. Nahed Yañez IG % 0.3 % Normal 0.0-0.5 [facility] Comment on above: Performed By: #### C BC ####[facility] H[address]aqkw[address]jv[address] [place], [place] [address]DrShaun Yañez LYMPH # 1.4 103/ul Normal 1.2-3.8 [facility] Comment on above: Performed By: #### C BC ####[facility] [address]iej[address] [place] [address]Dr. Nahed Yañez Lymphocytes/100 WBC (Bld) 10.4 % Critically low 20.5-60.0 [facility] Comment on above: Performed By: #### C BC ####[facility] [address]xed[address]xx[address] [place], [place] [address]Dr. Nahed Yañez MANUAL DIFF REQ NO Normal [facility] Comment on above: Performed By: #### C BC ####[facility] Y[address]zntszppv[address] [place] [address]Dr. Nahed Yañez MCH (RBC) [Entitic mass] 28.1 pg Normal 26.7-34.0 [facility] Comment on above: Performed By: #### C BC ####[facility] Y[address]udof[address] [place], [place] [address]Dr. Nahed Yañez MCHC (RBC) [Mass/Vol] 31.8 g/dL Normal 29.9-35.2 [facility] Comment on above: Performed By: #### C BC ####[facility] [address]em[address]fscim[address] [place], [place] [address]Dr. Nahed Yañez MCV (RBC) [Entitic vol] 88.4 fL Normal 81.0-99.0 [facility] [facility] Comment on above: Performed By: #### C BC ####[facility] Kgkcvtyvqx[address] [place], [place] [address]Dr. Nahed Yañez MONO # 0.8 103/ul Normal 0.3-0.8 [facility] Comment on above: Performed By: #### C BC ####[facility] Gorouyhvhv[address] [place], [place] [address]Dr. Nahed Yañez Monocytes/100 WBC (Bld) 6.0 % Normal 1.7-12.0 [facility] Comment on above: Performed By: #### C BC ####[facility] Lnldhmklti[address] [place], [place] [address]Dr. Nahed Yñaez NEUT # 10.9 103/ul Critically high 1.4-6.5 [facility] Comment on above: Performed By: #### C BC ####[facility] [address] [place] [address]Dr. Nahed Yañez Neutrophils/100 WBC (Bld) 83.0 % Critically high 43.0-75.0 [facility] Comment on above: Performed By: #### C BC ####[facility] Gwcftzgmgz[address] [place] [address]Dr. Nahed Yañez Platelet mean volume (Bld) [Entitic vol] 10.8 fL Normal 9.5-13.5 [facility] Comment on above: Performed By: #### C BC ####[facility] Xvqfnywfft[address] [place], [place] [address]Dr. Nahed Yañez PLT 402 103/ul Normal 150-450 [facility] Comment on above: Performed By: #### C BC ####[facility] Yftyajkngm8[address] [place], [place] [address]Dr. Nahed Yañez RBC 5.02 106/ul Normal 4.20-5.40 [facility] Comment on above: Performed By: #### C BC ####[facility] Kapggcluaq993[address] [place], [place] [address]Dr. Nahed Yañez WBC 13.1 103/ul Critically high 4.0-11.0 [facility] Comment on above: Performed By: #### C BC ####[facility] Nlajyoirkv7[address] [place], [place] [address]Dr. Nahed Otilio CTA CHEST WO W CONon 022 CTA CHEST WO W CON Normal [facility] CULTURE BLOODon 10-31-2021 Microscopic examination of blood, culture Culture Observations: NO GROWTH AT 5 DAYS. Normal [facility] Comment on above: Performed By: #### B LDCX2 ####[facility] [address]qc[address] [place] [address]Dr. Nahed Otilio Microscopic examination of blood, culture Culture Observations: NO GROWTH AT 5 DAYS. Normal [facility] Comment on above: Performed By: #### B LDCX1 ####[facility] Hqhyrvaemq[address] [place] [address]Dr. Nahed Yañez Covid-19 PCR (CVDTB)on 10-13 SARS-CoV-2 (COVID-19) RNA MIRNA+probe Ql (Unsp spec) Not detected Normal NOT DETECTED [facility] Comment on above: Result Comment: When [...] for this test is supported by the [employer] of [employer] and Human Service's declaration that [...] be used). Performed By: #### C VDTB ####[facility] Muhnqxnjgn[address] [place], [place] [address]Dr. Nahed Yañez ECHO LIMITED STUDYon 022 ECHO LIMITED STUDY Normal [facility] ER URINE PROFILEon 2 Bilirubin Ql (U) SMALL Abnormal NEGATIVE [facility] Comment on above: Performed By: #### YARELIS DOVE ####[facility] [address]thizfxfuz[address] [place] [address]Dr. Nahed Yañez Clarity (U) CLEAR Normal CLEAR [facility] Comment on above: Performed By: #### YARELIS DOVE ####[facility] Mjscohursz8[address] [place], [place] [address]Dr. Nahed Yañez Color (U) YELLOW Normal YELLOW [facility] Comment on above: Performed By: #### YARELIS DOVE ####[facility] Tcmtxy[address] [place], [place] [id number]. Nahed BORREGO A micrscopic examination will be performed if indicated. Normal [facility] Comment on above: Performed By: #### NUNU DOVERO ####[facility] Citurvjawf[address] [place] [address]Dr. Nahed Yañez Glucose Ql (U) Negative Normal NEGATIVE [facility] Comment on above: Performed By: #### MYLA DOVEICRO ####[facility] Wwpacpyihr[address] [place] [address]Dr. Nahed Yañez Hemoglobin Ql (U) TRACE-INTACT Abnormal NEGATIVE [facility] Comment on above: Performed By: #### NUNU DOVERO ####[facility] Geezwjfrgr5142[address] [place], [place] [address]Dr. Nahed Yañez Ketones Ql (U) 15 mg/dl Abnormal NEGATIVE [facility] Comment on above: Performed By: #### NUUN DOVERO ####[facility] Ujvqdekxzm0750[address] [place], [place] [address]Dr. Nahed Yañez LEUKOCYTES TRACE Abnormal NEGATIVE [facility] Comment on above: Performed By: #### NUNU DOVERO ####[facility] Fwrwsuaojw[address] [place], [place] [address]Dr. Nahed Yañez Nitrite Ql (U) Negative Normal NEGATIVE [facility] Comment on above: Performed By: #### MYLA DOVEICRO ####[facility] Gxrxlkwmgl50[address] [place] [address]Dr. Nahed Yañez pH (U) 6.5 [pH] Normal 5-9 [facility] Comment on above: Performed By: #### NNUU DOVERO ####[facility] Ofubfwctxb7159[address] [place], [place] [address]Dr. Nahed Yañez Protein (U) [Mass/Vol] 30 mg/dL Abnormal NEGAT JOSEPHINE/ TRACE [facility] Comment on above: Performed By: #### MYLA DOVEICRO ####[facility] Kljsimnhoz63[address] [place], [place] [address]Dr. Nahed Yañez SPEC GRAVITY 1.025 Normal 1.005-<=1.02 5 [facility] Comment on above: Performed By: #### YARELIS DOVE ####[facility] Hunqewsazz[address] [place], [place] [address]Dr. Nahed Yañez UR MICRO IND INDICATED Normal [facility] Comment on above: Performed By: #### YARELIS DOVE ####[facility] Ldwrdotxgf2[address] [place], [place] [address]Dr. Nahed Yañez Urobilinogen Qn (U) 0.2 {Alem'U}/dL Normal 0.2 - 1. 0 [facility] Comment on above: Performed By: #### YARELIS DOVE ####[facility] Tgspzgyucn413[address] [place], [place] [address]Dr. Nahed Yañez INFLUENZA A AND B AGon 10-31 INFLUANEGH SEE BELOW Normal [facility] Comment on above: Result Comment: Nega tive for Flu A protein angiten. Infection due to Flu A cannot be ruled out. Flu A angiten in the sample may be below the detection limit of the test. Performed By: #### I NFLUAB ####[facility] Opvensupex2932[address] [place], [place] [address]Dr. Nahed Yañez INFLUBNEGH SEE BELOW Normal [facility] Comment on above: Result Comment: Nega tive for Flu B protein antigen. Infection due to Flu B cannot be ruled out. Flu B antigen in the sample may be below the detection limit of the test. Performed By: #### I NFLUAB ####[facility] Hwcsacvttr[address] [place], [place] [address]Dr. Nahed Yañez INFLUENZA A AG Negative Normal NEGATIVE SEE COMMENT [facility] Comment on above: Performed By: #### I NFLUAB ####[facility] Mckjmxerph0619[address] [place], [place] [address]Dr. Nahed Yañez INFLUENZA B AG Negative Normal NEGATIVE SEE COMMENT [facility] Comment on above: Performed By: #### I NFLUAB ####[facility] Jkuvepnxmm7209[address] [place], [place] [address]Dr. Nahed Yañez INTERNAL CONTROLS Within Normal Limits Normal Wi thin Normal Limits [facility] Comment on above: Performed By: #### I NFLUAB ####[facility] Zq[address]hlg[address]ak[address] [place] [address]Dr. Nahed Yañez LACTATE/LACTIC ACIDon 2021 Lactate [Moles/Vol] 1.3 mmol/L Normal 0.4-1.9 [facility] Comment on above: Performed By: #### L ACT ####[facility] Upywwqxkpf[address] [place], [place] [address]Dr. Nahed Yañez PROF 14(COMP METB)on 022 Albumin [Mass/Vol] 4.3 g/dL Normal 3.4-5.0 [facility] Comment on above: Performed By: #### C MP ####[facility] Dvlpdhzzel[address] [place] [address]Dr. Nahed Yañez Albumin/Globulin [Mass ratio] 1.2 {ratio} Normal [facility] Comment on above: Performed By: #### C MP ####[facility] Sxvdcdqzwi0072[address] [place], [place] [address]Dr. Nahed Yañez ALP [Catalytic activity/Vol] 77 U/L Normal 46-116 [facility] Comment on above: Performed By: #### C MP ####[facility] Ddwccozzfs2222[address] [place], [place] [address]Dr. Nahed Yañez ALT [Catalytic activity/Vol] 25 U/L Normal 14-59 [facility] Comment on above: Performed By: #### C MP ####[facility] Drxtoygoab5[address] [place] [address]Dr. Nahed Yañez Anion gap [Moles/Vol] 15.6 mmol/L Normal [facility] Comment on above: Performed By: #### C MP ####[facility] Otzplcaqit7565[address] [place], [place] [address]Dr. Nahed Yañez AST [Catalytic activity/Vol] 26 U/L Normal 15-37 [facility] Comment on above: Performed By: #### C MP ####[facility] Jbuvfbzlof5[address] [place], [place] [address]Dr. Nahed Yañez Bilirubin [Mass/Vol] 0.6 mg/dL Normal 0.2-1.0 [facility] Comment on above: Performed By: #### C MP ####[facility] Apzkhblecv50[address] [place] [address]Dr. Nahed Yañez Calcium [Mass/Vol] 10.0 mg/dL Normal 8.5-10.1 [facility] Comment on above: Performed By: #### C MP ####[facility] Xziqsehbxk22[address] [place] [address]Dr. Nahed Yañez Chloride [Moles/Vol] 101 mmol/L Normal 98-107 [facility] Comment on above: Performed By: #### C MP ####[facility] Lzolojfdmc1846[address] [place], [place] [address]Dr. Nahed Yañez CO2 [Moles/Vol] 29.0 mmol/L Normal 21.0-32.0 [facility] Comment on above: Performed By: #### C MP ####[facility] Gqpcbqraxl69[address] [place], [place] [address]Dr. Nahed Yañez Creatinine [Mass/Vol] 0.89 mg/dL Normal 0.55-1.02 [facility] Comment on above: Performed By: #### C MP ####[facility] Numqyslggq740[address] [place], [place] [address]Dr. Nahed Yañez EGFR-AF VINCENTIAN >60 Normal >=60 [facility] Comment on above: Performed By: #### C MP ####[facility] Wcfb[address]fmnm[address] [place] [address]Dr. Nahed Otilio EGFR-NON AF VINCENTIAN >60 Normal >=60 [facility] Comment on above: Performed By: #### C MP ####[facility] Ojqsyxmnww69[address] [place] [address]Dr. Nahed Otilio Globulin (S) [Mass/Vol] 3.7 g/dL Normal [facility] Comment on above: Performed By: #### C MP ####[facility] Vwcswhkbtj6869[address] [place], [place] [address]Dr. Rosemarieashley Otilio Glucose [Mass/Vol] 182 mg/dL Critically high 74-106 [facility] Comment on above: Performed By: #### C MP ####[facility] Gxeysjcuxf99[address] [place] [address]Dr. Nahed Yañez Potassium [Moles/Vol] 3.6 mmol/L Normal 3.5-5.1 [facility] Comment on above: Performed By: #### C MP ####[facility] Ektahkoojq0980[address] [place], [place] [address]Dr. Nahed Yañez Protein [Mass/Vol] 8.0 g/dL Normal 6.4-8.2 [facility] Comment on above: Performed By: #### C MP ####[facility] Qqjyqcxsjv60[address] [place], [place] [address]Dr. Nahed Yañez Sodium [Moles/Vol] 142 mmol/L Normal 136-145 [facility] Comment on above: Performed By: #### C MP ####[facility] Tlrehjddva3850[address] [place], [place] [address]Dr. Nahed Yañez Urea nitrogen [Mass/Vol] 8.0 mg/dL Normal 7.0-18.0 [facility] Comment on above: Performed By: #### C MP ####[facility] Hdsmvjmlym032[address] [place], [place] [address]Dr. Nahed Yañez Urea nitrogen/Creatinine [Mass ratio] 9.0 mg/mg Normal [facility] Comment on above: Performed By: #### C MP ####[facility] Xzmcrscbyz1166[address] [place], [place] [address]Dr. Nahed Yañez T4on 10-31-2021 T4 [Mass/Vol] 8.10 ug/dL Normal 4.80-13.90 [facility] Comment on above: Performed By: #### T 4, TSH, BNP, CMADM ####[facility] Niamyutdja0197[address] [place], [place] [address]Dr. Nahed Yañez TSHon 10-31-2021 TSH 1.088 uIU/mL Normal 0.358-3.740 [facility] Comment on above: Performed By: #### T 4, TSH, BNP, CMADM ####[facility] Xnddjpuzej61[address] [place] [address]Dr. Nahed Yañez URINE MICROSCOPIC ONLYon BACTERIA TRACE Abnormal NONE SEEN [facility] Comment on above: Performed By: #### YARELIS DOVE ####[facility] Znokikmohx7[address] [place], [place] [address]Dr. Nahed Yañez Bacteria identified Cx Nom (U) NOT INDICATED Normal [facility] Comment on above: Performed By: #### NUNU DOVERO ####[facility] Qiqojpzban508[address] [place], [place] [address]Dr. Nahed Yañez CAST NONE SEEN Normal NONE SEEN [facility] Comment on above: Performed By: #### YARELIS DOVE ####[facility] Htanynxjvt399[address] [place], [place] [address]Dr. Nahed Yañez Crystals LM Nom (Urine sed) NONE SEEN Normal NONE SEEN [facility] Comment on above: Performed By: #### NUNU DOVERO ####[facility] Lhnnjmlult04[address] [place], [place] [address]Dr. Nahed Yañez Epithelial cells LM Ql (Urine sed) MODERATE Abnormal NONE SEEN /RARE [facility] Comment on above: Performed By: #### NUNU DOVERO ####[facility] Gxenonzhhp4[address] [place], [place] [address]Dr. Nahed Yañez MUCOUS SMALL Abnormal NONE SEEN [facility] Comment on above: Performed By: #### NUNU DOVERO ####[facility] Sulocmrssm7[address] [place], [place] [address]Dr. Nahed Yañez RBC 2-5 Abnormal 0-2 [facility] Comment on above: Performed By: #### NUNU DOVERO ####[facility] Jfhpgwiqum60[address] [place], [place] [address]Dr. Nahed Yañez WBC 2-5 Abnormal NONE SEEN [facility] Comment on above: Performed By: #### NUNU DOVERO ####[facility] Avrkzrkjnb4868[address] [place], [place] [address]Dr. Nahed Yañez XR CHEST 2 Von 10-31-2021 XR CHEST 2 V Normal [facility] CULTURE URINEon 10-30-2021 CULTURE URINE Culture Observations : MODERATE GROWTH OF MIXED GENITAL MIGUEL. NO POTENTIAL PATHOGENS SEEN. Normal [facility] Comment on above: Performed By: #### U RCX ####[facility] Isitoflnnm2125 [place] [id number]. Nahed Yañez US JESSEE DOP LEG BILon 022 US JESSEE DOP LEG MOHAN Normal [facility] CARDIAC FRANCISCO ADMITon 022 CK [Catalytic activity/Vol] 16 U/L Critically low 26-192 [facility] Comment on above: Performed By: #### C RENZO, CMADM ####[facility] Dfzzgmxqbs01[address] [place] [address]Dr. Nahed Yañez CK.MB [Mass/Vol] 0.56 ng/mL Normal <=3.60 [facility] Comment on above: Performed By: #### C RENZO, CMADM ####[facility] Lubbbcgyjo75[address] [place] [address]Dr. Nahed Yañez HSTROP 44.3 pg/mL Normal 4.0-51.3 [facility] Comment on above: Result Comment: CUT- OFF POINTS HAVE BEEN ESTABLISHED BASED ON THE FOURTH UNIVERSAL DEFINITIONS OF MYOCARDIALINFARCTION. THE UPPER REFERENCE LIMIT (URL) OF TROPONIN, DEFINED THE 99TH PERCENTILE OFcTnI DISTRIBUTION IN A REFERENCE POPULATION, HAS BEEN CONFIRMED THE DECISION THRESHOLDFOR [place] DIAGNOSIS. Performed By: #### C RENZO, CMADM ####[facility] Bokfwikvoe06[address] [place] [address]Dr. Nahed Yañez ANDRE 42 ng/mL Normal 9-82 [facility] Comment on above: Performed By: #### C RENZO, CMADM ####[facility] Jvqcxftnhh1160 [place] [id number]. Nahed Yañez CBC AUTO DIFFon 09-07-2021 BASO # 0.0 103/ul Normal 0.0-0.1 [facility] Comment on above: Performed By: #### C BC ####[facility] Rfkfodriud93[address] [place] [id number]. Nahed Yañez Basophils/100 WBC (Bld) 0.4 % Normal 0.2-2.0 [facility] Comment on above: Performed By: #### C BC ####[facility] Hjascnszcj6[address] [place] [address]Dr. Nahed Yañez EO # 0.2 103/ul Normal 0.0-0.7 [facility] Comment on above: Performed By: #### C BC ####[facility] Rcaoitczve6[address] [place], [place] [address]Dr. Nahed Yañez Eosinophils/100 WBC (Bld) 2.4 % Normal 0.9-7.0 [facility] Comment on above: Performed By: #### C BC ####[facility] Ixeybwbncr8156[address] [place], [place] [address]Dr. Nahed Yañez Erythrocyte distribution width (RBC) [Ratio] 15.1 % Critically high 11.0-15.0 [facility] Comment on above: Performed By: #### C BC ####[facility] Qwlpjrwmic[address] [place], [place] [address]DrShaun Yañez Hematocrit (Bld) [Volume fraction] 42.6 % Normal 36.0-48.0 [facility] Comment on above: Performed By: #### C BC ####[facility] Pulkpyarcd9[address] [place], [place] [address]Dr. Nahed Yañez Hemoglobin (Bld) [Mass/Vol] 13.4 g/dL Normal 12.0-16.0 [facility] Comment on above: Performed By: #### C BC ####[facility] Baaqhcfuve[address] [place], [place] [address]DrShaun Yañez IG # 0.33 10e3/ul Critically high 0.00-0.03 [facility] Comment on above: Performed By: #### C BC ####[facility] Nxqxtgvpar9717[address] [place], [place] [address]Dr. Nahed Yañez IG % 3.9 % Critically high 0.0-0.5 [facility] Comment on above: Performed By: #### C BC ####[facility] Yktgvypqxm[address] [place], [place] [address]Dr. Nahed Yañez LYMPH # 2.6 103/ul Normal 1.2-3.8 [facility] Comment on above: Performed By: #### C BC ####[facility] Pixrkidrzw7409 [place] [address]Dr. Nahed Yañez Lymphocytes/100 WBC (Bld) 30.3 % Normal 20.5-60.0 [facility] Comment on above: Performed By: #### C BC ####[facility] Flidrcuamb2215[address] [place], [place] [address]Dr. Nahed Yañez MANUAL DIFF REQ NO Normal [facility] Comment on above: Performed By: #### C BC ####[facility] Hguixsnywq894[address] [place], [place] [address]Dr. Nahed Yañez MCH (RBC) [Entitic mass] 28.6 pg Normal 26.7-34.0 [facility] Comment on above: Performed By: #### C BC ####[facility] Flmvtnsehu5782[address] [place], [place] [address]Dr. Nahed Yañez MCHC (RBC) [Mass/Vol] 31.5 g/dL Normal 29.9-35.2 [facility] Comment on above: Performed By: #### C BC ####[facility] Ilmxdrsgoq0616[address] [place], [place] [address]Dr. Nahed Yañez MCV (RBC) [Entitic vol] 90.8 fL Normal 81.0-99.0 [facility] Comment on above: Performed By: #### C BC ####[facility] Psjhcbgezo7225[address] [place], [place] [address]Dr. Nahed Yañez MONO # 0.7 103/ul Normal 0.3-0.8 [facility] Comment on above: Performed By: #### C BC ####[facility] Mjzxrncwqv87[address] [place], [place] [address]Dr. Nahed Yañez Monocytes/100 WBC (Bld) 8.0 % Normal 1.7-12.0 [facility] Comment on above: Performed By: #### C BC ####[facility] Lyubwvjweu9[address] [place], [place] [address]Dr. Nahed Yañez NEUT # 4.7 103/ul Normal 1.4-6.5 [facility] Comment on above: Performed By: #### C BC ####[facility] Qhhvovwtas3716 [place] [address]DrShaun Yañez Neutrophils/100 WBC (Bld) 55.0 % Normal 43.0-75.0 [facility] Comment on above: Performed By: #### C BC ####[facility] Rgxtqdxual5222 [place] [address]DrShaun Yañez Platelet mean volume (Bld) [Entitic vol] 8.9 fL Critically low 9.5-13.5 [facility] Comment on above: Performed By: #### C BC ####[facility] Yzgpywplzn[address] [place], [place] [address]DrShaun Yañez PLT 270 103/ul Normal 150-450 [facility] Comment on above: Performed By: #### C BC ####[facility] Njaozffibh0625[address] [place], [place] [address]DrShaun Yañez RBC 4.69 106/ul Normal 4.20-5.40 [facility] Comment on above: Performed By: #### C BC ####[facility] Oavymcirey66[address] [place], [place] [address]DrShaun Yañez WBC 8.5 103/ul Normal 4.0-11.0 [facility] Comment on above: Performed By: #### C BC ####[facility] Cmvyesteqq7[address] [place], [place] [address]DrShaun Yañez PROF 14(COMP METB)on 022 Albumin [Mass/Vol] 2.7 g/dL Critically low 3.4-5.0 [facility] Comment on above: Performed By: #### ERICK Whyte MP ####[facility] Hhzeovjvrz[address] [place], [place] [address]DrShaun Yañez Albumin/Globulin [Mass ratio] 0.8 {ratio} Normal [facility] Comment on above: Performed By: #### C ERICK MULLER ####[facility] Hzrsasczne[address] [place], [place] [address]DrShaun Yañez ALP [Catalytic activity/Vol] 65 U/L Normal 46-116 [facility] Comment on above: Performed By: #### C RENZO, ERICK ####[facility] Eomjiqiryi6[address] [place] [address]Dr. Nahed Yañez ALT [Catalytic activity/Vol] 27 U/L Normal 14-59 [facility] Comment on above: Performed By: #### C RENZO, ERICK ####[facility] Pxrxhflnyo5[address] [place] [address]Dr. Nahed Yañez Anion gap [Moles/Vol] 10.3 mmol/L Normal [facility] Comment on above: Performed By: #### C RENZO, ERICK ####[facility] Lkykhjbgwn9346 [place] [address]Dr. Nahed Yañez AST [Catalytic activity/Vol] 11 U/L Critically low 15-37 [facility] Comment on above: Performed By: #### C RENZO, ERICK ####[facility] Edusxhoqcu[address] [place], [place] [address]Dr. Nahed Yañez Bilirubin [Mass/Vol] 0.3 mg/dL Normal 0.2-1.0 [facility] Comment on above: Performed By: #### C RENZO, ERICK ####[facility] Yjckcfaask2046 [place] [address]Dr. Nahed Yañez Calcium [Mass/Vol] 8.1 mg/dL Critically low 8.5-10.1 [facility] Comment on above: Performed By: #### C RENZO, ERICK ####[facility] Xqmangsdjq2650 [place] [address]Dr. Nahed Yañez Chloride [Moles/Vol] 98 mmol/L Normal 98-107 [facility] Comment on above: Performed By: #### C RENZO, ERICK ####[facility] Hnzuiypkks32[address] [place] [address]Dr. Nahed Yañez CO2 [Moles/Vol] 32.5 mmol/L Critically high 21.0-32.0 [facility] Comment on above: Performed By: #### C RENZO, ERICK ####[facility] [address]mqkhemx[address] [place] [id number]. Nahed Yañez Creatinine [Mass/Vol] 0.94 mg/dL Normal 0.55-1.02 [facility] Comment on above: Performed By: #### C RENZO, CMADM ####[facility] [address]nnovfxcpy[address] [place] [id number]. Nahed Yañez EGFR-AF VINCENTIAN >60 Normal >=60 [facility] Comment on above: Performed By: #### C RENZO, CMADM ####[facility] Cjuirazmgt1556 [place] [id number]. Nahed Yañez EGFR-NON AF VINCENTIAN >60 Normal >=60 [facility] Comment on above: Performed By: #### C RENZO, CMAJOSE ####[facility] Jlmqmibhiu[address] [place] [address]Dr. Nahed Yañez Globulin (S) [Mass/Vol] 3.2 g/dL Normal [facility] Comment on above: Performed By: #### C RENZO, CMADM ####[facility] [address]qtv[address]wyf[address] [place] [address]Dr. Nahed Yañez Glucose [Mass/Vol] 123 mg/dL Critically high 74-106 [facility] Comment on above: Performed By: #### C RENZO, CMADM ####[facility] Efbahzqrtl3846 [place] [phone]. Nahed Yañez Potassium [Moles/Vol] 3.8 mmol/L Normal 3.5-5.1 [facility] Comment on above: Performed By: #### C RENZO, CMADM ####[facility] Fynfitprwp039[address] [place] [phone]. Nahed Yañez Protein [Mass/Vol] 5.9 g/dL Critically low 6.1-8.2 [facility] Comment on above: Performed By: #### C RENZO, CMADM ####[facility] Xvfepfznfv7994 [place] [phone]. Nahed Yañez Sodium [Moles/Vol] 137 mmol/L Normal 136-145 [facility] Comment on above: Performed By: #### C RENZO, CMADM ####[facility] Ib[address]zdqndw[address] [place] [address]Dr. Nahed Yañez Urea nitrogen [Mass/Vol] 20.0 mg/dL Critically high 7.0-18.0 [facility] Comment on above: Performed By: #### C MP, CMADM ####[facility] Ylz[address] [place], [place] [address]Dr. Nahed Yañez Urea nitrogen/Creatinine [Mass ratio] 21.3 mg/mg Normal [facility] Comment on above: Performed By: #### C MP, CMADM ####[facility] Coyrzgicxi[address] [place], [place] [address]Dr. Nahed Yañez BNPon 09-06-2021 Natriuretic peptide B (Bld) [Mass/Vol] 923.0 pg/mL Critically high <=900.0 [facility] Comment on above: Performed By: #### B MP, BNP, HSTROPN ####[facility] Adrshqhmw[address] [place], [place] [address]Dr. Nahed Yañez CBC AUTO DIFFon 09-06-2021 BASO # 0.1 103/ul Normal 0.0-0.1 [facility] Comment on above: Performed By: #### C BC ####[facility] Yobkenxagg[address] [place], [place] [address]Dr. Rosemarieashley Yañez Basophils/100 WBC (Bld) 0.6 % Normal 0.2-2.0 [facility] Comment on above: Performed By: #### C BC ####[facility] Qkfyectwfu[address] [place], [place] [address]Dr. Nahed Otilio EO # 0.3 103/ul Normal 0.0-0.7 [facility] Comment on above: Performed By: #### C BC ####[facility] Mvebmfeuim[address] [place], [place] [address]Dr. Nahed Otilio Eosinophils/100 WBC (Bld) 3.0 % Normal 0.9-7.0 [facility] Comment on above: Performed By: #### C BC ####[facility] Zxdwcud[address] [place], [place] [address]Dr. Nahed Yañez Erythrocyte distribution width (RBC) [Ratio] 15.0 % Normal 11.0-15.0 [facility] Comment on above: Performed By: #### C BC ####[facility] Inyhdfuuyz[address] [place] [address]Dr. Nahed Yañez Hematocrit (Bld) [Volume fraction] 48.1 % Critically high 36.0-48.0 [facility] Comment on above: Performed By: #### C BC ####[facility] Ngkmxnjywa[address] [place], [place] [address]Dr. Nahed Yañez Hemoglobin (Bld) [Mass/Vol] 15.5 g/dL Normal 12.0-16.0 [facility] Comment on above: Result Comment: delt a check called to Manisha WALKER Performed By: #### C BC ####[facility] Vtbicxmxcv[address] [place], [place] [address]Dr. Nahed Yañez IG # 0.46 10e3/ul Critically high 0.00-0.03 [facility] Comment on above: Performed By: #### C BC ####[facility] Kecnd[address]ws[address] [place], [place] [address]Dr. Nahed Yañez IG % 4.2 % Critically high 0.0-0.5 [facility] Comment on above: Performed By: #### C BC ####[facility] Dhkqttrmzw[address] [place], [place] [address]Dr. Nahed Yañez LYMPH # 2.2 103/ul Normal 1.2-3.8 [facility] Comment on above: Performed By: #### C BC ####[facility] Ktelopfimr[address] [place], [place] [address]Dr. Nahed Yañez Lymphocytes/100 WBC (Bld) 20.6 % Normal 20.5-60.0 [facility] Comment on above: Performed By: #### C BC ####[facility] Ftzckmzylx[address] [place], [place] [address]Dr. Nahed Yañez MANUAL DIFF REQ NO Normal [facility] Comment on above: Performed By: #### C BC ####[facility] Iajlfxnuxt1174 [place] [phone]. Nahed Yañez MCH (RBC) [Entitic mass] 28.2 pg Normal 26.7-34.0 [facility] Comment on above: Performed By: #### C BC ####[facility] Gbtcfesupc[address] [place] [address]Dr. Nahed Yañez MCHC (RBC) [Mass/Vol] 32.2 g/dL Normal 29.9-35.2 [facility] Comment on above: Performed By: #### C BC ####[facility] Lwxjs[address]weob[address] [place], [place] [address]Dr. Nahed Yañez MCV (RBC) [Entitic vol] 87.5 fL Normal 81.0-99.0 [facility] Comment on above: Performed By: #### C BC ####[facility] Emlre[address] [place], [place] [address]Dr. Nahed Yañez MONO # 0.7 103/ul Normal 0.3-0.8 [facility] Comment on above: Performed By: #### C BC ####[facility] Gvoydjioum[address] [place], [place] [address]Dr. Nahed Otilio Monocytes/100 WBC (Bld) 6.4 % Normal 1.7-12.0 [facility] Comment on above: Performed By: #### C BC ####[facility] Egjtv[address]stm[address] [place], [place] [address]Dr. Nahed Yañez NEUT # 7.1 103/ul Critically high 1.4-6.5 [facility] Comment on above: Performed By: #### C BC ####[facility] Rpjnig[address]vf[address] [place], [place] [address]Dr. Nahed Otilio Neutrophils/100 WBC (Bld) 65.2 % Normal 43.0-75.0 [facility] Comment on above: Performed By: #### C BC ####[facility] Dupkaztd[address] [place], [place] [address]Dr. Nhaed Yañez Platelet mean volume (Bld) [Entitic vol] 8.9 fL Critically low 9.5-13.5 [facility] Comment on above: Performed By: #### C BC ####[facility] Lxyylmekzd6022 [place], [place] [address]Aw. Nahed Yañez PLT 390 103/ul Normal 150-450 [facility] Comment on above: Performed By: #### C BC ####[facility] Vnsqwbbqvu5287 [place], [place] [address]Qk. Nahed Yañez RBC 5.50 106/ul Critically high 4.20-5.40 [facility] Comment on above: Performed By: #### C BC ####[facility] Rtfghicdyd4[address] [place] [phone]. Nahed Yañez WBC 10.8 103/ul Normal 4.0-11.0 [facility] Comment on above: Performed By: #### C BC ####[facility] Unrlgljrcq8644 [place] [phone]. Nahed Yañez CULTURE BLOODon 09-06-2021 Microscopic examination of blood, culture Culture Observations: NO GROWTH AT 5 DAYS. Isolate 1 BC_BA_NA Normal [facility] Comment on above: Performed By: #### B LDCX2 ####[facility] Gsx[address]xcvw[address] [place] [phone]. Nahed Yañez Microscopic examination of blood, culture Culture Observations: NO GROWTH AT 5 DAYS. Normal [facility] Comment on above: Performed By: #### B LDCX1 ####[facility] Ximveqxojw3675 [place] [phone]. Nahed Yañez Covid-19 PCR (CVDTB)on 08-13 SARS-CoV-2 (COVID-19) RNA MIRNA+probe Ql (Unsp spec) Not detected Normal NOT DETECTED [facility] Comment on above: Result Comment: When [...] for this test is supported by the [place] of [employer] and [employer] Service's declaration that [...] be used). Performed By: #### C VDTBH ####[facility] [address]rzyscxmt[address] [place], [place] [address]Dr. Nahed Yañez LACTATE/LACTIC ACIDon 2021 Lactate [Moles/Vol] 0.1 mmol/L Critically low 0.4-2.0 [facility] Comment on above: Performed By: #### L ACT ####[facility] Mdrxvzxegh[address] [place], [place] [address]Dr. Nahed Yañez Lactate [Moles/Vol] 1.5 mmol/L Normal 0.4-2.0 [facility] Comment on above: Performed By: #### L ACT ####[facility] Id[address]oczpnnr[address] [place], [place] [address]Dr. Nahed Yañez POINT OF CARE GLUCOSEon 08-13 Glucose [Mass/Vol] 201 mg/dL Critically high 74-106 [facility] Comment on above: Performed By: #### P OCGLUC ####[facility] Xyelhzrcre[address] [place], [place] [address]Dr. Nahed Yañez PROF CHEM 8 (BAS METB)on Anion gap [Moles/Vol] 14.8 mmol/L Normal [facility] Comment on above: Performed By: #### B MP, BNP, HSTROPN ####[facility] Fxraswethy[address] [place], [place] [address]Dr. Nahed Yañez Calcium [Mass/Vol] 8.8 mg/dL Normal 8.5-10.1 [facility] Comment on above: Performed By: #### B MP, BNP, HSTROPN ####[facility] Szuefvmp[address] [place], [place] [address]Dr. Nahed aYñez Chloride [Moles/Vol] 95 mmol/L Critically low 98-107 [facility] Comment on above: Performed By: #### B MP, BNP, HSTROPN ####[facility] Hcuitfruhm[address] [place] [address]Dr. Nahed Yañez CO2 [Moles/Vol] 28.7 mmol/L Normal 21.0-32.0 [facility] Comment on above: Performed By: #### B MP, BNP, HSTROPN ####[facility] Zkifvllkyu[address] [place] [address]Dr. Nahed Yañez Creatinine [Mass/Vol] 0.98 mg/dL Normal 0.55-1.02 [facility] Comment on above: Performed By: #### B MP, BNP, HSTROPN ####[facility] Ddzos[address]pep[address] [place], [place] [address]Dr. Nahed Yañez EGFR-AF VINCENTIAN >60 Normal >=60 [facility] Comment on above: Performed By: #### B MP, BNP, HSTROPN ####[facility] S[address]zterq[address] [place], [place] [address]Dr. Nahed Yañez EGFR-NON AF VINCENTIAN 58 mL/min/1.73m2 Critically low >=60 [facility] Comment on above: Performed By: #### B MP, BNP, HSTROPN ####[facility] Lcfufkoerd[address] [place] [address]Dr. Nahed Yañez Glucose [Mass/Vol] 150 mg/dL Critically high 74-106 [facility] Comment on above: Performed By: #### B MP, BNP, HSTROPN ####[facility] Bfulahfqnl[address] [place] [address]Dr. Rosemarieashley Yañez Potassium [Moles/Vol] 4.5 mmol/L Normal 3.5-5.1 [facility] Comment on above: Performed By: #### B MP, BNP, HSTROPN ####[facility] Yvyyzbsuos4[address] [place] [address]Dr. Nahed Yañez Sodium [Moles/Vol] 134 mmol/L Critically low 136-145 [facility] Comment on above: Performed By: #### B MP, BNP, HSTROPN ####[facility] Tadbfkywju4433 [place] [phone]. Nahed Yañez Urea nitrogen [Mass/Vol] 19.0 mg/dL Critically high 7.0-18.0 [facility] Comment on above: Performed By: #### B MP, BNP, HSTROPN ####[facility] Zgxvnnqnkq86[address] [place] [address]Dr. Nahed Yañez Urea nitrogen/Creatinine [Mass ratio] 19.4 mg/mg Normal [facility] Comment on above: Performed By: #### B MP, BNP, HSTROPN ####[facility] D[address]fse[address] [place] [address]Dr. Nahed Yañez TROPONIN, HIGH SENSITIVITYon 09-06-2021 HSTROP 50.4 pg/mL Normal 4.0-51.3 [facility] Comment on above: Result Comment: CUT- OFF POINTS HAVE BEEN ESTABLISHED BASED ON THE FOURTH UNIVERSAL DEFINITIONS OF MYOCARDIALINFARCTION. THE UPPER REFERENCE LIMIT (URL) OF TROPONIN, DEFINED THE 99TH PERCENTILE OFcTnI DISTRIBUTION IN A REFERENCE POPULATION, HAS BEEN CONFIRMED THE DECISION THRESHOLDFOR [place] DIAGNOSIS. Performed By: #### B MP, BNP, HSTROPN ####[facility] [address]ug[address] [place] [address]Dr. Nahed Yañez XR CHEST 1 Von 09-06-2021 XR CHEST 1 V Normal [facility] CBC with Diffon 09-08-2018 Abs. Basophil 0.03 k/uL Normal 0.00-0.20 [facility] Comment on above: Performed By: #### L IP, CMPX, CDP #### [facility] [address] [place] [address] Ink Maker: Nino Farias MD Abs.Imm.Granulocyte 0.05 k/uL Normal 0.00-0.30 [facility] Comment on above: Performed By: #### L IP, CMPX, CDP #### [facility] [address] [place] [address] Ink Maker: Nino Farias MD Abs.Neutrophil (Seg) 11.30 k/uL High 1.50-8.10 [facility] Comment on above: Performed By: #### L IP, CMPX, CDP #### [facility] [address] [place], [place] 157[address] Ink Maker: Nino Farias MD Basophils/100 WBC (Bld) 0 % Normal 0-2 [facility] Comment on above: Performed By: #### L IP, CMPX, CDP #### [facility] [address] [place], [place] [address] Ink Maker: Nino Farias MD Eosinophils #/vol (Bld) 0.17 10*3/uL Normal 0.00-0.44 [facility] Comment on above: Performed By: #### L IP, CMPX, CDP #### [address] [place], [facility] Ink Maker: Nino Farias MD Eosinophils/100 WBC (Bld) 1 % Normal 1-4 [facility] Comment on above: Performed By: #### L IP, CMPX, CDP #### [address] [place], [facility] Ink Maker: Nino Farias MD Erythrocyte distribution width Ratio (RBC) 12.5 % Normal 11.8-14.4 [facility] Comment on above: Performed By: #### L IP, CMPX, CDP #### [address] [place], [place] 6[address]183 Ink Maker: Nino Farias MD Hematocrit Volume Fraction (Bld) 36.8 % Normal 36.3-47.1 [facility] Comment on above: Performed By: #### L IP, CMPX, CDP #### [address] [place], [place] [address]383 Ink Maker: Nino Farias MD Hemoglobin mass conc (Bld) 11.6 g/dL Low 11.9-15.1 [facility] Comment on above: Performed By: #### L IP, CMPX, CDP #### [facility] [address] [place] [address] Dr. [place], [facility] Ink Maker: Nino Farias MD Immature granulocytes #/vol (Bld) 0 % Normal 0 [facility] Comment on above: Performed By: #### L IP, CMPX, CDP #### [facility] [address] [place], [place] [address] Ink Maker: Nino Fairas MD Lymphocytes #/vol (Bld) 2.56 10*3/uL Normal 1.10-3.70 [facility] Comment on above: Performed By: #### L IP, CMPX, CDP #### [address] [place] [address] Ink Maker: Nino Farias MD Lymphocytes/100 WBC (Bld) 18 % Low 24-43 [facility] Comment on above: Performed By: #### L IP, CMPX, CDP #### [address] [place], [place] [address] Ink Maker: Nino Farias MD MCH Entitic mass (RBC) 30.6 pg Normal 25.2-33.5 [facility] Comment on above: Performed By: #### L IP, CMPX, CDP #### [address] [place], [facility] Ink Maker: Nino Farias MD MCHC mass conc (RBC) 31.5 g/dL Normal 28.4-34.8 [facility] Comment on above: Performed By: #### L IP, CMPX, CDP #### [address] [place], [facility] Ink Maker: Nino Farias MD MCV Entitic volume (RBC) 97.1 fL Normal 82.6-102.9 [facility] Comment on above: Performed By: #### L IP, CMPX, CDP #### [facility] [address] [place], [place] 9[address] Ink Maker: Nino Farias MD Monocytes #/vol (Bld) 0.55 10*3/uL Normal 0.10-1.20 [facility] Comment on above: Performed By: #### L IP, CMPX, CDP #### [facility] [address] [place], [place] [address] Ink Maker: Nino Farias MD Monocytes/100 WBC (Bld) 4 % Normal 3-12 [facility] Comment on above: Performed By: #### L IP, CMPX, CDP #### [address] [place], [facility] Ink Maker: Nino Farias MD Neutrophil (Seg) 77 % High 36-[address] [facility] Comment on above: Performed By: #### L IP, CMPX, CDP #### [address] [place], [facility] Ink Maker: Nino Farias MD NRBC Automated 0.0 per 100 WBC Normal 0.0 [facility] Comment on above: Performed By: #### L IP, CMPX, CDP #### [address] [place], [place] [address]3 Ink Maker: Nino Farias MD Platelet mean volume Entitic volume (Bld) 9.2 fL Normal 8.1-13.5 [facility] Comment on above: Performed By: #### L IP, CMPX, CDP #### [address] [place], [place] [address]39[address]83 Ink Maker: Nino Farias MD Platelets #/vol (Bld) 305 10*3/uL Normal 138-453 [facility] Comment on above: Performed By: #### L IP, CMPX, CDP #### [facility] [address] [place] [address] Ink Maker: Nino Farias MD RBC #/vol (Bld) 3.79 10*6/uL Low 3.95-5.11 [facility] Comment on above: Performed By: #### L IP, CMPX, CDP #### [facility] [address] [place], [place] [id number] Ink Maker: Nino Farias MD WBC #/vol (Bld) 14.7 10*3/uL High 3.5-11.3 [facility] Comment on above: Performed By: #### L IP, CMPX, CDP #### [address] [place], [place] [id number] Ink Maker: Nino Farias MD Auto Diff Performed NOT REPORTED Normal [facility] Comment on above: Performed By: #### L IP, CMPX, CDP #### [facility] [address] [place] [address] Dr[place], [place] [id number] Ink Maker: Nino Farias MD Platelets #/vol (Bld) NOT REPORTED Normal [facility] Comment on above: Performed By: #### L IP, CMPX, CDP #### [address] [place], [place] 9128[address] Ink Maker: Nino Farias MD RBC morphology finding Nom (Bld) NOT REPORTED Normal [facility] Comment on above: Performed By: #### L IP, CMPX, CDP #### [facility] [address] [place] [address] Dr[place], [place] 078[address] Ink Maker: Nino Farias MD WBC Morphology NOT REPORTED Normal [facility] Comment on above: Performed By: #### L IP, CMPX, CDP #### [facility] [address] [place], [place] 386[address]83 Ink Maker: Nino Farias MD Comp Metabolic Pr/rfx MGon 0 09-08-2018 ALT enzyme act/vol U/L Low 5-33 [facility] Comment on above: Performed By: #### L IP, CMPX, CDP #### [facility] [address] [place] [address] Ink Maker: Nino Farias MD (cont.) [facility] Comment on above: Result Comment: Aver age GFR for 50-59 years old: 93 mL/min/1.73sq m Chronic Kidney Disease: <60 mL/min/1.73sq m Kidney failure: <15 mL/min/1.73sq m eGFR calculated using average adult body mass. Additional eGFR calculator available at: http://www.[employer]/multiple_crcl_2011.htm Performed By: #### L IP, CMPX, CDP #### [facility] [address] [place] [address] Ink Maker: Nino Farias MD Albumin mass conc 4.0 g/dL Normal 3.5-5.2 [facility] Comment on above: Performed By: #### L IP, CMPX, CDP #### [facility] [address] [place] [address] Ink Maker: Nino Farias MD Albumin/Globulin mass ratio 1.3 {ratio} Normal 1.0-2.5 [facility] Comment on above: Performed By: #### L IP, CMPX, CDP #### [facility] [address] [place] [address] Ink Maker: Nino Farias MD Alkaline Phos 58 U/L Normal 35-104 [facility] Comment on above: Performed By: #### L IP, CMPX, CDP #### [facility] [address] [place] [address] Ink Maker: Nino Farias MD Anion gap molar conc 8 mmol/L Low 9-17 [facility] Comment on above: Performed By: #### L IP, CMPX, CDP #### [facility] [address] [place] [address] Ink Maker: Nino Farias MD AST enzyme act/vol 20 U/L Normal <32 [facility] Comment on above: Performed By: #### L IP, CMPX, CDP #### [facility] [address] [place] [address] Ink Maker: Nino Farias MD Bilirubin Ql (U) 0.17 mg/dL Low 0.3-1.[address] [facility] Comment on above: Performed By: #### L IP, CMPX, CDP #### [facility] [address] [place] [address] Ink Maker: Nino Farias MD BUN/CRE Ratio 15 Normal 9-20 [facility] Comment on above: Performed By: #### L IP, CMPX, CDP #### [facility] [address] [place] [address] Ink Maker: Nino Farias MD Calcium mass conc 9.3 mg/dL Normal 8.6-10.4 [facility] Comment on above: Performed By: #### L IP, CMPX, CDP #### [facility] [address] [place] [address] Ink Maker: Nino Farias MD Chloride molar conc 97 mmol/L Low 98-107 [facility] Comment on above: Performed By: #### L IP, CMPX, CDP #### [facility] [address] [place] [address] Ink Maker: Nino Farias MD CO2 molar conc 31 mmol/L Normal 20-31 [facility] Comment on above: Performed By: #### L IP, CMPX, CDP #### [facility] [address] [place] [address] Ink Maker: Nino Farias MD Creatinine mass conc 1.22 mg/dL High 0.50-0.90 [facility] Comment on above: Performed By: #### L IP, CMPX, CDP #### [facility] [address] [place], [place] 45[address]83 Ink Maker: Nino Farias MD GFR, Amer 55 mL/min Low >[address] [facility] Comment on above: Performed By: #### L IP, CMPX, CDP #### [facility] [address] [place], [place] [phone] Ink Maker: Nino Farias MD GFR,non Amer 45 mL/min Low >60 [facility] Comment on above: Performed By: #### L IP, CMPX, CDP #### [facility] [address] [place] [address] Ink Maker: Nino Farias MD Glucose mass conc 93 mg/dL Normal 70-99 [facility] Comment on above: Performed By: #### L IP, CMPX, CDP #### [facility] [address] [place], [place] [address]83 Ink Maker: Nino Farias MD Potassium molar conc 4.5 mmol/L Normal 3.7-5.3 [facility] Comment on above: Performed By: #### L IP, CMPX, CDP #### [facility] [address] [place], [place] [id number] Ink Maker: Nino Farias MD Protein mass conc 7.0 g/dL Normal 6.4-8.3 [facility] Comment on above: Performed By: #### L IP, CMPX, CDP #### [facility] [address] [place], [place] [id number] Ink Maker: Nino Farias MD Sodium molar conc 136 mmol/L Normal 135-144 [facility] Comment on above: Performed By: #### L IP, CMPX, CDP #### [facility] [address] [place] [address] Ink Maker: Nino Farias MD Staging: Normal [facility] Comment on above: Result Comment: Stag e 1: Some kidney damage normal GFR Stage 2: Mild kidney damage GFR 60-89 Stage 3: Moderate kidney damage GFR 30-59 Stage 4: Severe kidney damage GFR 15-29 Stage 5: Severe kidney damage GFR <15 ESRD - chronic treatment by dialysis or transplant Performed By: #### L IP, CMPX, CDP #### [facility] [address] [place] [address] Ink Maker: Nino Farias MD Urea nitrogen mass conc 18 mg/dL Normal 6-20 [facility] Comment on above: Performed By: #### L IP, CMPX, CDP #### [facility] [address] [place] [address] Ink Maker: Nino Farias MD Lactic Acidon 09-08-2018 Lactate molar conc 1.2 mmol/L Normal 0.5-2.2 [facility] Comment on above: Performed By: #### L AC #### [facility] [address] [place] [address] Ink Maker: Nino Farias MD Lipaseon 09-08-2018 Lipase enzyme act/vol 27 U/L Normal 13-60 [facility] Comment on above: Performed By: #### L IP, CMPX, CDP #### [facility] [address] [place] [address] Ink Maker: Nino Farias MD UA w/Reflex Cultureon 2018 Acetoacetic Acid,Ur Negative Normal NEG [facility] Comment on above: Performed By: #### U MICAO, UAX #### [facility] [address] [place] [address] Ink Maker: Nino Farias MD Bilirubin.direct mass conc SMALL Abnormal NEG [facility] Comment on above: Performed By: #### U MICAO, UAX #### [facility] [address] [place] [address] Ink Maker: Nino Farias MD Color Nom (U) YELLOW Normal YEL [facility] Comment on above: Performed By: #### U MICAO, UAX #### [facility] [address] [place], [place] [id number] Ink Maker: Nino Farias MD Glucose mass conc Negative Normal [facility] Comment on above: Performed By: #### U MICAO, UAX #### [facility] [address] [place] [address] Ink Maker: Nino Farias MD Hemoglobin mass conc (Bld) Negative Normal [facility] Comment on above: Performed By: #### U MICAO, UAX #### [facility] [address] [place] [address] Ink Maker: Nino Farias MD Leuckocyte Esterase Negative Normal [facility] Comment on above: Performed By: #### U MICAO, UAX #### [facility] [address] [place] [address] Ink Maker: Nino Farias MD Nitrite,Ur Negative Normal [facility] Comment on above: Performed By: #### U MICAO, UAX #### [facility] [address] [place] [address] Ink Maker: Nino Farias MD PH,Ur 5.5 Normal 5.0-9.0 [facility] Comment on above: Performed By: #### U MICAO, UAX #### [facility] [address] [place] [address] Ink Maker: Nino Farias MD Protein mass conc Negative Normal [facility] Comment on above: Performed By: #### U MICAO, UAX #### [facility] [address] [place] [address] Ink Maker: Nino Farias MD Spec. [place],Ur 1.010 Normal 1.010-1.020 [facility] Comment on above: Performed By: #### U MICAO, UAX #### [facility] [address] [place], [place] [id number] Ink Maker: Nino Farias MD Turbidity CLEAR Normal CLEAR [facility] Comment on above: Performed By: #### U MICAO, UAX #### [facility] [address] [place], [place] [id number] Ink Maker: Nino Farias MD Urobilinogen,Ur Normal Normal NORM [facility] Comment on above: Performed By: #### U MICAO, UAX #### [facility] [address] [place], [place] [address] Ink Maker: Nino Farias MD Comment NOT REPORTED Normal [facility] Comment on above: Performed By: #### U MICAO, UAX #### [facility] [address] [place], [facility] Ink Maker: Nino Farias MD Urinalysis,Microon 9 ----- Normal [facility] Comment on above: Performed By: #### U MICAO, UAX #### [facility] [address] [place], [place] [address] Ink Maker: Nino Farias MD Bacteria LM.HPF #/area (Urine sed) TRACE Abnormal NONE [facility] Comment on above: Performed By: #### U MICAO, UAX #### [facility] [address] [place], [place] [id number] Ink Maker: Nino Farias MD Epithelial cells LM.HPF #/area (Urine sed) None Normal 0-25 [facility] Comment on above: Performed By: #### U MICAO, UAX #### [facility] [address] [place], [place] [id number] Ink Maker: Nino Farias MD RBC #/vol (U) None Normal 0-2 [facility] Comment on above: Performed By: #### U MICAO, UAX #### [facility] [address] [place] [address] Ink Maker: Nino Farias MD WBC #/vol (U) 0 TO 2 Normal 0-5 [facility] Comment on above: Performed By: #### U MICAO, UAX #### [facility] [address] [place] [address] Ink Maker: Nino Farias MD Amorphous sediment LM Ql (Urine sed) NOT REPORTED Normal [facility] Comment on above: Performed By: #### U MICAO, UAX #### [facility] [address] [address] Ink Maker: Nino Farias MD Casts LM.LPF #/area (Urine sed) NOT REPORTED Normal [facility] Comment on above: Performed By: #### U MICAO, UAX #### [facility] [address] [place] [address] Ink Maker: Nino Farias MD Crystals LM Nom (Urine sed) NOT REPORTED Normal [facility] Comment on above: Performed By: #### U MICAO, UAX #### [facility] [address] [place] [address] Ink Maker: Nino Farias MD Epithelial, Renal NOT REPORTED Normal 0 [facility] Comment on above: Performed By: #### U MICAO, UAX #### [facility] [address] [place] [address] Ink Maker: Nino Farias MD Mucus Strands NOT REPORTED Normal [facility] Comment on above: Performed By: #### U MICAO, UAX #### [facility] [address] [place] [address] Ink Maker: Nino Farias MD Other Observations NOT REPORTED Normal NREQ [facility] Comment on above: Performed By: #### U MICAO, UAX #### [facility] [address] [place] [address] Ink Maker: Nino Farias MD Trichomonas NOT REPORTED Normal NONE [facility] Comment on above: Performed By: #### U MICAO, UAX #### [facility] [address] [place] [address] Ink Maker: Nino Farias MD Yeast LM Ql (Urine sed) NOT REPORTED Normal NONE [facility] Comment on above: Performed By: #### U MICAO, UAX #### [facility] [address] [place] [address] Ink Maker: Nino Farias MD Vital Signs Date Time Vital Sign Value Performing Clinician Faci lity 07-05-2023 22:13-0500 Diastolic blood pressure 74 mm[Hg] Arsenio Martin [facility] 07-05-2023 22:13-0500 Heart rate 62 /min Arsenio Martin [facility] 07-05-2023 22:13-0500 Mean blood pressure 85 mm[Hg] Arsenio Martin [facility] 07-05-2023 22:13-0500 Respiratory rate 14 /min Arsenio Martin [facility] 07-05-2023 22:13-0500 SaO2% (BldA) [Mass fraction] 99 % Arsenio Martin [facility] 07-05-2023 22:13-0500 Systolic blood pressure 107 mm[Hg] Arsenio Martin [facility] 07-05-2023 21:49-0500 Diastolic blood pressure 69 mm[Hg] Arsenio Martin [facility] 07-05-2023 21:49-0500 Heart rate 59 /min Arsenio Martin [facility] 07-05-2023 21:49-0500 Mean blood pressure 80 mm[Hg] Arsenio Mario [facility] 07-05-2023 21:49-0500 Respiratory rate 15 /min Arsenio Mario [facility] 07-05-2023 21:49-0500 SaO2% (BldA) [Mass fraction] 97 % Arsenio Mario [facility] 07-05-2023 21:49-0500 Systolic blood pressure 101 mm[Hg] Arsenio Mario [facility] 07-05-2023 21:02-0500 Diastolic blood pressure 77 mm[Hg] Arsenio Martin [facility] 07-05-2023 21:02-0500 Heart rate 60 /min Arsenio Martin [facility] 07-05-2023 21:02-0500 Mean blood pressure 86 mm[Hg] Arsenio Mario [facility] 07-05-2023 21:02-0500 Respiratory rate 16 /min Arsenio Martin [facility] 07-05-2023 21:02-0500 SaO2% (BldA) [Mass fraction] 99 % Arsenio Martin [facility] 07-05-2023 21:02-0500 Systolic blood pressure 105 mm[Hg] Arsenio Mario [facility] 07-05-2023 17:45-0500 Body temperature 97.52 [degF] Arsenio Mario [facility] 07-05-2023 16:27-0500 Body temperature 96.44 [degF] Arsenio Mario [facility] 07-05-2023 15:15-0500 gluc 136 mg/dL Arsenio Mario [facility] 07-05-2023 15:15-0500 gluc Arsenioulises Martin [facility] 07-05-2023 15:02-0500 Body temperature 95.9 [degF] Arsenio Mario [facility] 07-05-2023 15:02-0500 Heart rate 54 /min Arsenio Mario [facility] 07-05-2023 15:02-0500 Respiratory rate 16 /min Arsenio Mario [facility] 08-09-2022 17:25-0400 Diastolic blood pressure 64 mm[Hg] Arsenio Mario [facility] 08-09-2022 17:25-0400 Heart rate 75 /min Arsenio Mario [facility] 08-09-2022 17:25-0400 Mean blood pressure 83 mm[Hg] Arsenio Mario [facility] 08-09-2022 17:25-0400 Respiratory rate 16 /min Arsenio Mario [facility] 08-09-2022 17:25-0400 SaO2% (BldA) [Mass fraction] 96 % Arsenio Mario [facility] 08-09-2022 17:25-0400 Systolic blood pressure 122 mm[Hg] Arsenio Mario [facility] 08-09-2022 16:00-0400 Diastolic blood pressure 56 mm[Hg] Arsenio Mario [facility] 08-09-2022 16:00-0400 Heart rate 64 /min Arsenio Mario [facility] 08-09-2022 16:00-0400 Mean blood pressure 72 mm[Hg] Arsenio Martin [facility] 08-09-2022 16:00-0400 SaO2% (BldA) [Mass fraction] 92 % Arsenio Martin [facility] 08-09-2022 16:00-0400 Systolic blood pressure 103 mm[Hg] Arsenio Martin [facility] 08-09-2022 15:00-0400 Diastolic blood pressure 67 mm[Hg] Arsenio Martin [facility] 08-09-2022 15:00-0400 Heart rate 61 /min Arsenio Martin [facility] 08-09-2022 15:00-0400 Mean blood pressure 80 mm[Hg] Arsenio Martin [facility] 08-09-2022 15:00-0400 Systolic blood pressure 106 mm[Hg] Arsenio Martin [facility] 08-09-2022 14:03-0400 SaO2% (BldA) [Mass fraction] 94.1 % Arsenio Martin [facility] Resp Auto SS 08-09-2022 13:10-0400 Body temperature 98.24 [degF] Arsenio Martin [facility] 08-09-2022 13:10-0400 Heart rate 70 /min Arsenio Martin [facility] 08-09-2022 13:10-0400 Respiratory rate 18 /min Arsenio Martin [facility] Encounters Encounter Date Encounter Type Care Provider Facility Start: 07-11-2023 Evaluation and management of inpatient LOREE CHANCE [facility] Start: 07-08-2023 Evaluation and management of inpatient MANESH LARSON [facility] Start: 07-06-2023 Evaluation and management of inpatient MANLAYNE LARSON [facility] Start: 07-06-2023 End: 07-11-2023 Evaluation and management of inpatient UMAIR MANDUJANO [facility] Start: 07-05-2023 End: 07-06-2023 Emergency department patient visit Arsenio Martin Facility:[facility] Start: 07-05-2023 End: 07-05-2023 Emergency department patient visit Arsenio Martin [facility] Start: 06-29-2023 Evaluation and management of inpatient ROSALBA MOSS [facility] Start: 06-29-2023 End: 07-02-2023 Evaluation and management of inpatient SOCORRO Zayas MATTHEW [facility] Start: 08-22-2022 End: 08-24-2022 Evaluation and management of inpatient DR ЕКАТЕРИНА ROBERT . Facility: Start: 08-09-2022 End: 08-09-2022 Emergency department patient visit Arsenio Martin Facility:[facility] Start: 08-09-2022 End: 08-09-2022 Emergency department patient visit Arsenio Martin [facility] Start: 07-30-2022 End: 08-01-2022 Evaluation and management of inpatient DR ЕКАТЕРИНА ROBERT . Facility: Start: 07-27-2022 End: 07-28-[address] ЕКАТЕРИНА ROBERT . Facility:[facility] Start: 05-08-2022 End: 05-09-[address] ЕКАТЕРИНА ROBERT . Facility:[facility] Start: 01-31-2022 End: 01-31-[address] ЕКАТЕРИНА ROBERT . Facility: Start: 11-01-2021 End: 11-03-2021 Evaluation and management of inpatient TAMIE FAJARDO Facility:[facility] Start: 10-31-2021 End: 11-01-2021 Evaluation and management of inpatient DR ЕКАТЕРИНА ROBERT . Facility:[facility] Start: 09-28-2021 End: 09-29-[address] ЕКАТЕРИНА ROBERT . Facility:[facility] Start: 09-06-2021 End: 09-07-[address] ЕКАТЕРИНА ROBERT . Facility:[facility] Start: 03-04-2021 End: 03-04-2021 Emergency department patient visit Magdalena Oconnor Facility:[facility] Start: 09-08-2018 End: 09-08-2018 Emergency department patient visit KEISHA DORADO JR [facility] Procedures Date Procedure Procedure Detail Performing Clinician Start: 08-02-2022 Microscopic examinat ion of blood, culture DR ЕКАТЕРИНА ROBERT . Comment on above: Performed By: #### B [id number] ####[facility] [id number] [place], [place] [address]Sh. Nahed Otilio Start: 11-02-2021 Antibody screen SAVANNAHI AD Comment on above: Performed By: #### 3 5200, [address] #### [facility] [address] Start: 07-16-2019 Phalangectomy of toe Fabián [...] Date Payer Category Payer Self-pay 2018 Medicare [id number] 1960 Unknown [id number] 2.16.8 [id number] 1960 Unknown [id number] 2.16.8 [id number] 1960 Unknown [id number] 2.16.84 [id number] 1960 Unknown [id number] 2.16.84 [id number] 1960 Unknown [id number] 2.16.84 [id number] 1960 Unknown [id number] 2.16.84 [id number] 1960 Unknown [id number] 2.16.84 [id number] 1960 Unknown [id number] 2.16.84 [id number] 1960 Unknown [id number] 2.16.84 [id number] 1960 Unknown [id number] 2.16.84 [id number] 1960 Unknown [id number] 2.16.8 [id number] 1960 Unknown [id number] 2.16.8 [id number] 1958 Unknown [id number] Unknown [id number] 2.16.8 [id number] Social History Date Type Detail Facility Start: 08-09-2022 Tobacco smoking status Heavy t obacco smoker (finding) [facility] Comment on above: 2 cigarettes a day Sex Assigned At Female [facility] Functional Status Date Assessment Result Facility 07-05-2023 Functional Status N/A [facility] 08-09-2022 Functional Status N/A [facility] Clinical Notes 11-03-2021 to 07-11-2023 Note [...] 10:20 AM Socorro Oviedo NP CARD Deirdre [facility] 08/06/2023 1:30 PM [facility] CV CLINIC DEVICE CHECK [facility] CARD [place] Heart[facility]AS Your medication list START taking these [...] 70.4 kg (1 (more content not included)... [facility] 07-11-2023 Note Occupational Therapy Occupational Therapy Evaluation [...] List Diagnosis NSTEMI (non-ST elevated myocardial infarction) ([facility]/HCC) Coronary arteriosclerosis Hyperlipidemia Type 2 diabetes mellitus ([facility]/HCC) Acute non-ST segment elevation myocardial infarction ([facility]/HCC) Cigarette smoker Other forms of angina [...] Level of Function Prior Function Level of [place]: Independent with ADLs and functional transfers, Independent [...] Eating meals?: None (Independent) Total Score OT [facility]: 24 Assessment/Plan OT Assessment OT Education/Comments: (PPM handout issued and discussed with good return demo) Plan OT Plan: No skilled OT OT Discharge Recommendations: Home OT - Discharge Recommendations Placed: Yes OT Goals Multi-Disciplinary Problems (from Occupational Therapy) Active Problems Not on file [facility] 07-11-2023 Note UTP CARDIOLOGY PROGR ESS NOTE [...] HFpEF as tolerated 4) outpatient follow-up with [place] cardiology Echo 06/29/23: Left Ventricle: The left ventricle is normal size. Global left ventricular sys (more content not included)... [facility] 07-11-2023 Note Hospital Medicine Daily Progress Note - 07/11/2023 8:24 AM; Room: 3120/3120-01 Admission: 07/06/2023 12:25 AM; Length of stay: 5 days THE HOSPITALIST TEAM PREFERS TO USE DxTerity CHAT FOR COMMUNICATION 7AM-7PM. IF I DO NOT RESPOND WITHIN 15 MINUTES, PLEASE PAGE ME/CALL THROUGH THE LABEL TACKER. FROM 7PM-7AM, PLEASE PAGE [phone](COVR) Code Status: Full Code Barriers to Discharge: [...] LDL 95 07/06/2023 No results found for: [id number] , IRON , TIBC , C3 , [...] clear. Normal heart (more content not included)... [facility] 07-10-2023 Note Indications for dual -chamber pacemaker [...] of the upper extremity Loree Chance M.D. [facility] Leather Repairerdenial management representative and Pediatrics Director: Cardiac Electrophysiology Program [facility] 07-10-2023 Note Patient: Vivian Dela Cruz or Procedure Information Date/Time: 07/10/23 1500 Procedure: Implant PPM Location: [facility] REPAIR DEPARTMENT SUPERVISOR 1 / [facility] (Cath) Providers: Loree Chance [...] discussed with patient who. Additional Equipment Requests [facility] 07-10-2023 Note UTP CARDIOLOGY PROGR ESS NOTE [...] HFpEF as tolerated 4) outpatient follow-up with [place] [facility] Echo 06/29/23: Left Ventricle: The left [...] 86 QT Interval 466 QTC CALCULATION(BAZETT) 476 R-Dexter 34 T Wave Dexter [address] & Marked [...] stable CAD Ventric (more content not included)... [facility] 07-10-2023 Note Hospital Medicine Daily Progress Note - 07/10/2023 8:08 AM; Room: [address] [place] [address] Admission: 07/06/2023 12:25 AM; Length of stay: 4 days THE HOSPITALIST TEAM PREFERS TO USE DxTer[employer] CHAT FOR COMMUNICATION 7AM-7PM. IF I DO NOT RESPOND WITHIN 15 MINUTES, PLEASE PAGE ME/CALL THROUGH THE LABEL TACKER. FROM 7PM-7AM, PLEASE PAGE [phone](COVR) Code Status: Full Code Barriers to Discharge: [...] LDL 95 07/06/2023 No results found for: [id number] , IRON , TIBC , C3 , [...] need to arrange for her transportation needs; telegraphic typewriter operator provided printed information to Pt for local Flickr for Pt (more content not included)... [facility] 07-09-2023 Note Patient admitted to the hospital for: Bradycardia. Chart echo from 06/29/2023 reports: EF 60%. Echo report does Not qualify for Cardiac Rehab services per CMS eligibility criteria. A Cardiac Rehab referral must also meet CMS criteria. Marline Suarez, RN, BSN Cardiopulmonary Rehab Coordinator [facility] 07-09-2023 Note Cardiology Inpatient Progress Note Subjective [...] 86 QT Interval 466 QTC CALCULATION(BAZETT) 476 R-Dexter 34 T Wave Dexter [address] & Marked [...] HFpEF as tolerated 4) outpatient follow-up with [place] cardiology Hemodynamic Data: RA: 17 mmHg RV: [...] bradycardia. Patient has been transferred to [facility] for consideration of pacemaker placement. As per patient, her heart rate was 18 at the outside hospital, however I could not confirm from any documentation. During the current hospitalization, so far patient's heart rate has been ranging 40-50. EKG performed in the ED showed diffuse T wave inversions with junctional rhythm. Telemetry shows sinus bradycardia a (more content not included)... [facility] 07-09-2023 Note Hospital Medicine Daily Progress Note - 07/09/2023 11:10 AM; Room: [address] [place] [address] Admission: 07/06/2023 12:25 AM; Length of stay: 3 days THE HOSPITALIST TEAM PREFERS TO USE DxTer[employer] CHAT FOR COMMUNICATION 7AM-7PM. IF I DO NOT RESPOND WITHIN 15 MINUTES, PLEASE PAGE ME/CALL THROUGH THE LABEL TACKER. FROM 7PM-7AM, PLEASE PAGE [phone](COVR) Code Status: Full Code Barriers to Discharge: [...] LDL 95 07/06/2023 No results found for: [id number] , IRON , TIBC , C3 , [...] Planning TBD Signed Jayden Haider MD MS4 [facility] Medicine 07/09/2023 11: (more content not included)... [facility] 07-08-2023 Note ---- Attestation signed by Kiera [...] 07/08/23 0802 84/55 36.4 ???C (97.5 ???F) [facility] 67 21 98 % -- 07/08/23 [...] 86 QT Interval 466 QTC CALCULATION(BAZETT) 476 R-Dexter 34 T Wave Dexter [address] & Marked T wave abnormality, consider anterolateral ischemia Prolonged QT Abnormal ECG When compared with ECG of 06-JUL-2023 14:34, T wave inversion less evident in Lateral Lab Results Component Value Date CKTOTAL 36.0 07/06/2023 TROPONINI 0.12 (HH) 07/06/2023 Complete Echo (TTE) w/wo Imaging Agent, Strain, 3D, Bubble Study Result Date: 06/29/2023 1 1 [facility] [address] [place] [address] [phone] (fax) Echocardiogram-[facility] Name: VIVIAN VANN Study Date: 06/29/2023 12:30 PM B/P: 135 mmHg/89 mmHg HR: Date of : 1960 Location: [facility] Height: 67 in. Age: 63 year(s) Patient [...] Valve: The mitr (more content not included)... [facility] 07-08-2023 Note Hospital Medicine Daily Progress Note - 07/08/2023 8:42 AM; Room: [facility]/3120- Admission: 07/06/2023 12:25 AM; Length of stay: 2 days THE HOSPITALIST TEAM PREFERS TO USE DxTer[employer] CHAT FOR COMMUNICATION 7AM-7PM. IF I DO NOT RESPOND WITHIN 15 MINUTES, PLEASE PAGE ME/CALL THROUGH THE LABEL TACKER. FROM 7PM-7AM, PLEASE PAGE [phone](COVR) Code Status: Full Code Barriers to Discharge: [...] LDL 95 07/06/2023 No results found for: [id number] , IRON , TIBC , C3 , [...] Planning TBD Signed Jayden Haider MD MS4 [facility] Medicine 07/08/2023 8:42 AM [facility] 07-07-2023 Note ---- Attestation signed by Kiera [...] 07/06/23 1725 91/66 36.4 ???C (97.6 ???F) [facility] 64 13 97 % -- -- [...] 84 QT Interval 434 QTC CALCULATION(BAZETT) 451 R-Dexter 23 T Wave Dexter [address] & Marked [...] Bubble Study Result Date: 06/29/2023 1 1 [facility] [address] [place] [address] [phone] (fax) Echocardiogram-[facility] Name: VIVIAN VANN Study Date: 06/29/2023 12:30 PM B/P: 135 mmHg/89 mmHg HR: Date of : 1960 Location: [facility] Height: 67 in. Age: 63 year(s) Patient [...] abnormality. Right Ventricle: (more content not included)... [facility] 07-07-2023 Note Hospital Medicine Daily Progress Note - 07/07/2023 10:19 AM; Room: [address] [place] [address] Admission: 07/06/2023 12:25 AM; Length of stay: 1 days THE HOSPITALIST TEAM PREFERS TO USE EPIC CHAT FOR COMMUNICATION 7AM-7PM. IF I DO NOT RESPOND WITHIN 15 MINUTES, PLEASE PAGE ME/CALL THROUGH THE LABEL TACKER. FROM 7PM-7AM, PLEASE PAGE [phone](COVR) Code Status: Full Code Barriers to Discharge: [...] 4.6 3.7 CHLORIDE (more content not included)... [facility] 07-06-2023 Note communication receiv ed that Patient stating does not have transportation to return home at discharge At 07/02/2023 discharge, [facility] provided a one-time courtesy taxi cab transportation for Patient to return to her home (Patient's residence is 57 miles one-way from [facility] and cost for taxi cab was $146); [facility] is not able to provide another taxi cab. The following information was printed and provided to the Patient to make her own transportation arrangements for once she is medically cleared for discharge: [facility] hospital address is [address] [place] [address] [employer] to ask if non-emergency medical transportation is a covered benefit of the specific plan (https://www.[employer]ro[employer]/contact-us/ohi o/) Taxis in [place] ([email or web address].jonnie.[email or web address]/Taxi) [employer] 702-665-NDVU (8294) [employer] [phone] [facility] 07-06-2023 Note 07/06/23 1625 Referral Data Referral Source certified social workers in health care Patient Information Primary Caregiver Self Activities of [...] need to arrange for her transportation needs; telegraphic typewriter operator provided printed information to Pt for local taxi [employer] companies for Pt to consider; [facility] unable to pay for another one-time courtesy taxi cab for 57miles one-way trip) [facility] 07-06-2023 Note 1526 telegraphic typewriter operator attempted to meet with Pt to discuss discharge planning (including Patient will need to arrange her transportation once she is medically cleared to discharge to home); Patient not in bed; unable to complete [id number] 1542 telegraphic typewriter operator attempted to meet with Pt to discuss discharge planning (including Patient will need to arrange her transportation once she is medically cleared to discharge to home); Patient caring for toileting hygiene; unable to complete [id number]-crxp [facility] 07-06-2023 Note 07/06/23 1219 Admission Assessment Questions [...] Discharge? Yes Does the patient have a counter caser assigned to them through their insurance? [...] to send link and activate MyChart? Yes [facility] 07-06-2023 Note ---- Attestation signed by Jayden [...] Progress Note - 07/06/2023 11:37 AM; Room: [address] [place] [address] Admission: 07/05/2023 11:50 PM; Length of stay: 1 days THE HOSPITALIST TEAM PREFERS TO USE DxTerity CHAT FOR COMMUNICATION 7AM-7PM. IF I DO NOT RESPOND WITHIN 15 MINUTES, PLEASE PAGE ME/CALL THROUGH THE LABEL TACKER. FROM 7PM-7AM, PLEASE PAGE [phone](COVR) Code Status: Full Code Barriers to Discharge: [...] -Continue home medi (more content not included)... [facility] 07-06-2023 Note . Hospital Medicine History and Physical 07/06/2023 1:19 AM THE HOSPITALIST TEAM PREFERS TO USE DxTerity CHAT FOR COMMUNICATION 7AM-7PM. IF I DO NOT RESPOND WITHIN 15 MINUTES, PLEASE PAGE ME/CALL THROUGH THE LABEL TACKER. FROM 7PM-7AM, PLEASE PAGE [phone](COVR) Chief Complaint No chief complaint on file. History of Present Illness Vivian Vann is an 63 y.o. female who came from home with CP. This is a 63 years old female lady with a medical history of hypertension, tobacco smoking, A-fib, CHF. Came into the [facility] as a direct admit transfer from outside [...] Bradycardia 07/06/2023 NSTEMI (non-ST elevated myocardial infarction) ([facility]) 06/29/2023 Other forms of angina pectoris 06/29/2023 Hypomagnesemia 06/29/2023 Acute midline low back pain without sciatica 06/29/2023 Coronary arteriosclerosis 11/24/2021 Hyperlipidemia 11/24/2021 Type 2 diabetes mellitus ([facility]) 11/24/2021 Acute non-ST segment elevation myocardial infarction ([facility]) 11/24/2021 Cigarette smoker 11/24/2021 Assessment and [...] this hospital stay by a member of [facility]. Past Medical History No past [...] (CARDIA) Difficulty of (more content not included)... [facility] 07-05-2023 Evaluation + Plan note Extrac florinda [...] Reflex 07/05/23 * Drug Screen Urine 07/05/23 [facility]02-19-2024 NotePatient admitted to the hospital for: NSTEMI. Review of the last noted chart Echo from 06/29/2023 reports: EF 60%. Reported echo result does not qualify for Cardiac Rehab services per [facility] eligibility criteria for CHF. Marline Suarez, RN, BSN Cardiopulmonary Rehab CoordinatorAvita Health System02-19-2024 Note07/02/23 1116 Referral Data Referral Source certified social workers in health care Patient Information Primary Caregiver Self Activities of Daily Living Assistive Device Not applicable Living Arrangement (Current/Prior to Hospitalization) Private residence;Home self care Behavior Oriented Communication Talks;Understands speaking Discharge Planning Support Systems Therapist (planning discharge to home; communication rcvd Pt not wanting [facility] services) Type of Residence/Post Acute Needs Private residence Will patient need Precert for Post Acute needs? No Patient's goal for discharge home RucCC screened; Pt declining HHC, Consult resolved 1340 Communication received that Pt needing transportation to home since was transferred here from [facility], does not drive, lives alone, does not have friends or family who can transport ([phone]) PC to [employer]; from [address] [place] [address] to [address] [place] [address] will be $146 Bacteriologist Soil provided verbal estimate to assembly supervisor, verbal approval from assembly supervisor [phone] taxi cab transportation arranged; bedside RN notified Confirmation #: [id number] Passenger: VIVIAN VANN Phone Number: [phone] Pickup Date/Time: 07/02/2023 3:00 PM Pickup Address: [facility], [address] [place] [address], [place], [address] Drop Off Address: [address] [place] [address]. Arlene Notes: please pickup at [facility]02-19-2024 Note07/02/23 1017 Admission Assessment Questions Verify [...] Discharge? Yes Does the patient have a counter caser assigned to them through their insurance? [...] able to send link and activate MyChart? [facility]02-19-2024 Note Attestation signed by Merritt Guerrero [...] Value Ventricular Rate 61 Atrial Rate 61 MT Interval 150 QRS DURATION 88 QT Interval 476 QTC CALCULATION(BAZETT) 479 P Dexter 68 R-Dexter 25 T Wave Dexter 128 Impression Normal sinus rhythm Right atrial [...] Bubble Study Result Date: 06/29/2023 1 1 [facility] [address] [place] [address] [phone] (fax) Echocardiogram-[facility] Name: VIVIAN VANN Study Date: 06/29/2023 12:30 PM B/P: 135 mmHg/89 mmHg HR: Date of : 1960 Location: [facility] Height: 67 in. Age: 63 year(s) Patient [...] ventricular systolic function. Dop (more content not included)...[facility]02-18-2024 NoteHospital Medicine Daily Progress Note - 07/01/2023 12:00 PM; Room: [address] [place] [address] Admission: 06/29/2023 11:04 AM; Length of stay: 2 days THE HOSPITALIST TEAM PREFERS TO USE EPIC CHAT FOR COMMUNICATION 7AM-7PM. IF I DO NOT RESPOND WITHIN 15 MINUTES, PLEASE PAGE ME/CALL THROUGH THE LABEL TACKER. FROM 7PM-7AM, PLEASE PAGE [phone](COVR) Code Status: Full Code Barriers to Discharge: [...] Principal Problem: NSTEMI (non-ST elevated myocardial infarction) ([facility]) Active Problems: Hyperlipidemia Type 2 diabetes mellitus ([facility]) Other forms of angina pectoris Hypomagnesemia [...] LDL 114 11/02/2021 No results found for: [id number] , IRON , TIBC , C3 , C4 , WENDI , CANCA , ASO , PSA , CEA , CA125 , CA199 , AFP , CA153 Imaging ECG 12 lead Normal sinus rhythm Right atrial (more content not included)...[facility] 07-01-2023 Note Attestation signed by Merritt Guerrero [...] Value Ventricular Rate 61 Atrial Rate 61 MT Interval 150 QRS DURATION 88 QT Interval 476 QTC CALCULATION(BAZETT) 479 P Dexter 68 R-Dexter 25 T Wave Dexter 128 Impression Normal sinus rhythm Right atrial [...] Bubble Study Result Date: 06/29/2023 1 1 [place] [facility] [address] [place] [address] [phone] (fax) Echocardiogram-[facility] Name: VIVIAN VANN Study Date: 06/29/2023 12:30 PM B/P: 135 mmHg/89 mmHg HR: Date of : 1960 Location: [facility] Height: 67 in. Age: 63 year(s) Patient [...] Right Ventricle: The r (more content not included)...[facility]02-17-2024 Note Attestation signed by Merritt Guerrero MD [...] Value Ventricular Rate 61 Atrial Rate 61 MT Interval 150 QRS DURATION 88 QT Interval 476 QTC CALCULATION(BAZETT) 479 P Dexter 68 R-Dexter 25 T Wave Dexter 128 Impression Normal sinus rhythm Right atrial [...] Bubble Study Result Date: 06/29/2023 1 1 [facility] [address] [place] [address] [phone] (fax) Echocardiogram-[facility] Name: VIVIAN VANN Study Date: 06/29/2023 12:30 PM B/P: 135 mmHg/89 mmHg HR: Date of : 1960 Location: [facility] Height: 67 in. Age: 63 year(s) Patient [...] Mild Mild N (more content not included)... [facility]02-17-2024 NoteHospital Medicine Daily Progress Note - 06/30/2023 11:32 AM; Room: [facility]/3120- Admission: 06/29/2023 11:04 AM; Length of stay: 1 days THE HOSPITALIST TEAM PREFERS TO USE DxTerity CHAT FOR COMMUNICATION 7AM-7PM. IF I DO NOT RESPOND WITHIN 15 MINUTES, PLEASE PAGE ME/CALL THROUGH THE LABEL TACKER. FROM 7PM-7AM, PLEASE PAGE [phone](COVR) Code Status: Full Code Barriers to Discharge: [...] Principal Problem: NSTEMI (non-ST elevated myocardial infarction) ([facility]) Active Problems: Hyperlipidemia Type 2 diabetes mellitus ([facility]) Other forms of angina pectoris Hypomagnesemia [...] LDL 114 11/02/2021 No results found for: [id number] , IRON , TIBC , C3 , C4 , WENDI , CANCA , ASO , PSA , CEA , CA125 , CA199 , AFP , CA153 Imaging ECG 12 lead Normal sinus rhythm Right atrial enlargement ST & T wave abnormality, consider ante (more content not included)...[facility]02-16-2024 NotePatient: Vivian Vann Procedure Information Date/Time: 06/29/23 1655 Procedure: Coronary angiography Location: [facility] REPAIR DEPARTMENT SUPERVISOR 3 / [facility] (Cath) Providers: Ortiz Aquino [...] who. Plan discussed with attending. Additional [facility]Un[facility] Note Hospital Medicine History and Physical 06/29/2023 12:51 PM THE HOSPITALIST TEAM PREFERS TO USE DxTerity CHAT FOR COMMUNICATION 7AM-7PM. IF I DO NOT RESPOND WITHIN 15 MINUTES, PLEASE PAGE ME/CALL THROUGH THE LABEL TACKER. FROM 7PM-7AM, PLEASE PAGE [phone](COVR) Chief Complaint Direct admission from [facility] for NSTEMI requiring cardiac cath History of Present Illness Vivian Vann is an 63 y.o. female who came from [facility] as direct asmission for NSTEMI. Patient presented 06/28/23 to [facility] for c/o chest pain and lower back pain. Patient troponin level found to be 557 and EKG showed new ischemia and inverted T-waves, NSTEMI. She was given nitroglycerin and started on heparin drip. Patient is 1 year s/p stent placement at [facility] on plavix and aspirin. Dr. Yoo with cardiology agreed to patient transfer here to [facility] with hospital medicine admitting and cardiology consult [...] back pending. Laboratory workup here at [facility] shows CBC unremarkable w/ exception of NCHC [...] nursing note reviewed. Exam conducted with a crutching contractor present. Constitutional: General: She is not in [...] Date Noted NSTEMI (non-ST elevated myocardial infarction) ([facility]) 06/29/2023 Assessment and Plan Chest pain Low Back Pain NSTEMI -Troponin 557 at [facility], troponin now 0.07 - aPTT 67.3, [...] Heparin drip with titratio (more content not included)...[facility]04-05-2023 NoteMicrobiology PROCEDURE: Blood Culture Charcoal [R1] SOURCE: [...] Locations R1: This test was performed at: [facility], [address] [place] [address], [id number] [place] [address], [id number] Ortiz StreetComment on above:Performed By: #### [id number] ####[address] [id number] NoteMicrobiology PROCEDURE: Blood Culture Charcoal [R1] SOURCE: Blood BODY SITE: Arm L COLLECTED DATE/TIME: 08/09/2022 14:09 EDT RECEIVED DATE/TIME: 08/09/2022 14:17 EDT START DATE/TIME: 08/09/2022 14:17 EDT FREE TEXT SOURCE: lt ac Nic PA-C, Clinton C Nic PA-C, Clinton C FINAL REPORTS Final Report [] Verified Date/Time: 08/16/2022 15:58 EDT No growth at 7 days. Performing Locations R1: This test was performed at: [facility], [address] [place] [address], [id number] [place] [address], [id number] Ort[address] StreetComment on above:Performed By: #### [id number] ####[address] [id number] Hospital Discharge instructions Patient Education 08/09/2022 16:50:59 [...] Follow these instructions at home: Medicines Take mwnl-rhg-jvdahtm and prescription medicines (inhaled or pills) only [...] 02/07/2006 Document Revised: 04/12/2018 Document Reviewed: 06/04/2017 [employer] Patient Education 2020 [employer]. Follow Up Care 08/09/2022 13:09:28 With:Екатерина Robert Address: [address] [place] [id number] Business (1) When:08/12/2022 16:50:37 Comments:Call the office [...] you develop any new or worsening symptoms. [facility]03-29-2023 Evaluation + Plan noteExtracted from: Title:ED Note [...] Charcoal 08/09/22 * Blood Culture Charcoal 08/09/22 [facility]06-23-2022 NoteMR#: [id number] I [facility] Pt. Name: Vivian Vann Admitted: 11/01/2021 Discharged: 11/03/2021 Date of : 1960 Physician: Tamie Fajardo MD DISCHARGE SUMMARY PRINCIPAL DIAGNOSIS: Tnv-WE-wxtrvixms myocardial infarction. SECONDARY DIAGNOSES: 1. Questionable small subsegmental PE in the right lower lobe, favored to be chronic per CT angio done outside facility. 2. Peptic ulcer disease. 3. Depression. 4. Chronic obstructive pulmonary disease. 5. THC use. 6. Nicotine use. HOSPITAL COURSE: Again, the patient was admitted to the hospital on 11/01/2021, with chest pain and she was found to have a ids-YC-naswvnwru [place]. The patient underwent cardiac catheterization and had [...] Fajardo MD Date Trans: 11/03/2021 01:10 P/laura [id number] cc: Gasper Avendano M.D. [address] [place] [address] Екатерина Robert M.D. [place] [id number] [facility] [id number] CenterHospital course Narrative No data available for this section [facility] No data available for this section [facility] No data available for this section [facility] Summary Purpose Family History No Family History [...] content) DATE CREATED AUTHOR 09/12/2018 Sury Vasquez [facility] DATE CREATED AUTHOR AUTHOR'S ORGANIZ ATION 01/06/2022 [facility] DATE CREATED AUTHOR AUTHOR'S ORGANIZ ATION 09/05/2022 [facility] DATE CREATED AUTHOR AUTHOR'S ORGANIZ ATION 07/13/2023 [facility] DATE CREATED AUTHOR AUTHOR'S ORGANIZ ATION 07/13/2023 [facility] DATE CREATED AUTHOR AUTHOR'S ORGANIZ ATION 07/19/2023 [facility] Patient Care team informatio n (unrecognized section and content) Personnel Name: Екатерина Robert MD Address: Address: [address] [place] [address] Personnel Name: Екатерина Robert MD Address: Address: [address] [place] [address] FOR RECORDS PERTAINING TO PATIENTS WHO ARE [...] BE BASED ON THE PRIMARY CLINICAL RECORDS. [facility]. provides no warranty or guarantee of the accuracy or completeness of information in this document.
[2023-07-23] MEDS: HEPARIN SODIUM (PORCINE) 5,000 UNIT/ML VIAL 4000 UNIT IV (22:29)
[2023-07-23] MEDS: HEPARIN SODIUM,PORCINE/D5W 25,000 UNIT/500 ML IV.SOLN 16.3200000000000003 UNIT IV (22:31)
[2023-07-23] MEDS: PANTOPRAZOLE SODIUM 40 MG VIAL IV (23:26)
[2023-07-23] MEDS: AZITHROMYCIN 500 MG in 0.9 % SODIUM CHLORIDE 250 ML 250 MG IV (23:26)
[2023-07-23] MEDS: 0.9 % SODIUM CHLORIDE 1,000 ML 75 ML IV (23:27)
[2023-07-23] MEDS: ALPRAZOLAM 1 MG TABLET PO (23:34)
[2023-07-23] MEDS: GABAPENTIN 300 MG CAPSULE PO (23:34)
[2023-07-23] MEDS: TRAZODONE HCL 50 MG TABLET PO (23:34)
[2023-07-23] MEDS: BUSPIRONE HCL 10 MG TABLET PO (23:35)
[2023-07-23] MEDS: INSULIN ASPART 300 UNIT/3 ML PEN SUBQ (23:43)
[2023-07-23 23:50] LABS: Glucometer 379 mg/dL (74-106)
[2023-07-24] VITALS (99 sets, daily range): BP systolic 116–152; BP diastolic 77–94; PULSE 75–94; RESP 4–40; TEMP 36.4–37.1; O2SAT 86–98
[2023-07-24] MEDS: CEFTRIAXONE 1,000 MG in 0.9 % SODIUM CHLORIDE 50 ML 100 MG IV ×2 (00:30→21:10)
[2023-07-24 00:58] LABS: Lactate/Lactic Acid 2.5 mmol/L (0.4-2.0); Troponin I High Sensitivity 311.7 pg/mL (4.0-51.3)
--- NOTE | 2023-07-24 04:00 | ECG_ITS ---
[facility] Test Date: 2023-07-24 Pat Name: EMERY JETT Department: Room: [facility] Gender: Female Functional Tester Typewriters: : 1960 Requested By: ЕКАТЕРИНА ROBERT Order Number: [id number] Reading MD: EBONIE BOLIVAR Measurements Intervals Banning Rate: 80 P: 58 NJ: 208 QRS: 44 QRSD: 76 T: 138 QT: 386 QTc: 422 Interpretive Statements [id number] Electronic atrial pacemaker 4364 Twave abnormality, possible anterolateral ischemia 9150 abnormal ECG Electronically Signed On 07-25-2023 23:12:52 EDT by EBONIE BOLIVAR
[2023-07-24] MEDS: METHYLPREDNISOLONE SOD SUCC PF 125 MG/2 ML VIAL 60 MG IVP ×3 (04:06→19:37)
[2023-07-24 05:22] LABS: Basophils Percent Auto 0.1 % (0.2-2.0); Hemoglobin 10.5 g/dL (12.0-16.0); Immature Granulocytes Abs Auto 0.04 10^3/uL (0.00-0.03); Immature Granulocytes Pct Auto 0.3 % (0.0-0.5); Lymphocytes Absolute Auto 1.1 10^3/uL (1.2-3.8); Lymphocytes Percent Auto 7.5 % (20.5-60.0); Mean Corpuscular HGB Conc 29.2 g/dL (29.9-35.2); Mean Corpuscular Volume 92.5 fL (81.0-99.0); Mean Platelet Volume 10.2 fL (9.5-13.5); Monocytes Absolute Auto 0.2 10^3/uL (0.3-0.8); Monocytes Percent Auto 1.2 % (1.7-12.0); Neutrophils Absolute Auto 13.4 10^3/uL (1.4-6.5); Neutrophils Percent Auto 90.9 % (43.0-75.0); Platelet Count 297 10^3/uL (150-450); Red Blood Count 3.89 10^6/uL (4.20-5.40); Red Cell Distribution Width 15.8 % (11.0-15.0); White Blood Count 14.7 10^3/uL (4.0-11.0)
[2023-07-24 05:28] LABS: Prothrombin Time 9.6 sec (9.0-11.6)
[2023-07-24 05:49] LABS: Alanine Aminotransferase 59 U/L (14-59); Albumin Globulin Ratio 0.9; Albumin Level 3.4 g/dL (3.4-5.0); Alkaline Phosphatase 85 U/L (46-116); Anion Gap 11.3; Aspartate Amino Transferase 40 U/L (15-37); BUN Creatinine Ratio 20.8; Bilirubin Total 0.2 mg/dL (0.2-1.0); Calcium 9.1 mg/dL (8.5-10.1); Carbon Dioxide 31.8 mmol/L (21.0-32.0); Chloride 104 mmol/L (98-107); Estimated GFR (African America >60 (>=60); Estimated GFR (Non-African Ame 59 (>=60); Globulin 3.8 g/dL; Glucose 158 mg/dL (74-106); Magnesium 2.4 mg/dL (1.8-2.4); Potassium 5.1 mmol/L (3.5-5.1); Sodium 142 mmol/L (136-145); Total Protein 7.2 g/dL (6.4-8.2)
[2023-07-24] MEDS: GABAPENTIN 300 MG CAPSULE PO ×3 (05:49→21:47)
[2023-07-24] MEDS: LEVOTHYROXINE SODIUM 75 MCG TABLET PO (05:49)
[2023-07-24 06:00] LABS: Troponin I High Sensitivity 283.1 pg/mL (4.0-51.3)
[2023-07-24 06:01] LABS: INR <0.93; PTT Heparin Monitor 27.6 sec (48.2-68.6)
[2023-07-24] MEDS: HEPARIN SODIUM (PORCINE) 5,000 UNIT/ML VIAL 4000 UNIT IV (06:34)
--- NOTE | 2023-07-24 07:51 | CA_ITS ---
Patient Name: EMERY JETT MR#: [id number] : 1960 Exam Date: 07/24/2023 Ordering Doctor: DR Charlie Richardson . ECHOCARDIOGRAM REPORT PROCEDURE: CA ECHO LIMITED INDICATIONS: elevated HST, BNP COMPARISON: None. DESCRIPTION: Limited ECHOCARDIOGRAM Real-time transthoracic echocardiography with 2D and M-mode performed. QUALITY: Technical quality was good. LEFT VENTRICLE: Normal chamber size. Mild concentric left ventricular hypertrophy. Global left ventricular systolic function is hyperdynamic. LV EF: Estimated left ventricular ejection fraction is 70-75%. DIASTOLIC: ATRIAL SEPTUM: LEFT ATRIUM: Moderate dilatation. RIGHT ATRIUM: Mild dilatation. RIGHT VENTRICLE: Normal chamber size. Normal right ventricular systolic function. TRICUSPID VALVE: Normal mobility and thickness. MITRAL VALVE: Normal mobility and thickness. AORTIC VALVE: Normal trileaflet appearance. No visible sclerosis. Normal mobility. AORTIC ROOT: Normal diameter and appearance. PULMONIC VALVE: Normal thickness and mobility. PERICARDIUM: Trivial pericardial effusion. IVC: Mild dilatation. No collapse. PLEURA: CONCLUSION: 1. Mild concentric left ventricular hypertrophy with hyperdynamic systolic function. LVEF is estimated at 70 to 75%. 2. Normal right ventricular size and systolic function. 3. Mild to moderate biatrial dilatation. 4. Trivial pericardial effusion. 5. Limited study performed with no Doppler interrogation as requested. Adult Echocardiography Procedure Report Left Ventricle LVEDD (3.7 - 5.6 cm): 4.33 cm LVESD (2.2 - 4.0 cm): 2.92 cm LVIVS thickness (0.6 - 1.2 cm): 1.11 cm LVPW thickness (0.5 - 1.0 cm): 1.15 cm LVOT Diameter 1.64 cm Left Ventricular Ejection Fraction: 71.61 % Left Atrium LA Volume Index (2D A2C): 46.10 ml/m2 Left Atrium Systolic Dimension: 4.31 cm Mitral Valve Right Ventricle RV Internal Diastolic Dimension: 3.43 cm Aorta AO Root Diam: 2.50 cm Aortic Valve Tricuspid Valve Pulmonic Valve Right Atrium Right Atrium Systolic Pressure: 77.06 ml, 77.06 ml Dictated by: Merritt Guerrero M.D. on 07/24/2023 at 17:49 Approved by: Merritt Guerrero M.D. on 07/24/2023 at 17:51
[2023-07-24] MEDS: ACETAMINOPHEN 325 MG TABLET 650 MG PO (07:58)
--- NOTE | 2023-07-24 08:03 | P.HP_ITS ---
HPI H&P: HPI History of Present Illness Chief complaint: OTHER HYPOXIA ELEV TROPONIN ELEV BNP Narrative: Patient presented to the emergency room with increasing shortness of breath. In ER found to have right upper lobe pneumonia, complicated by elevated high- sensitivity troponin and BNP. Case was discussed with cardiology. [place] to be more demand ischemia and treating the pneumonia would improve. When I saw patient up in the ICU this morning, her breathing she states is better. Her lung exam shows the right upper lobe rhonchi. No peripheral edema. Opioid HPI Opioid Management Most Recent Opioid Data: Last Pain Assessment 07/24/23 07:00 Last ED Pain Assessment 07/22/23 05:11 Last MAR Pain Assessment 07/24/23 07:58 Last ORT Total Score 0 07/23/23 22:57 Last ORT Risk Category Low Risk 07/23/23 22:57 Ur Phencyclidine Scrn Negative (NEGATIVE) 06/10/23 09:30 PFSH PFSH Medical History IBS (irritable bowel syndrome) ?K58.9 - Irritable bowel syndrome without diarrhea (ICD-10) Anxiety ?F41.9 - Anxiety disorder, unspecified (ICD-10) Heart attack ?I21.9 - Acute myocardial infarction, unspecified (ICD-10) Sciatic leg pain ?M54.30 - Sciatica, unspecified side (ICD-10) Herniated disc, cervical ?M50.20 - Other cervical disc displacement, unspecified cervical region (ICD- 10) Surgical History History of appendectomy ?Z90.49 - Acquired absence of other specified parts of digestive tract (ICD- 10) History of heart artery stent ?Z95.5 - Presence of coronary angioplasty implant and graft (ICD-10) Family History Other Family history of diabetes mellitus Family history of myocardial infarction Social History Within the past year, how often did you have a drink containing alcohol: monthly or less Smoking status: Current every day smoker Nicotine containing products detail: 1 pack/week Non-prescribed substance use: cannabis (any form) Non-prescribed substance use details: smokes marijuana, gummies Highest level of school completed/degree received: high school graduate Meds Home Medications and Allergies Home Medications Medication Instructions Recorded Confirmed Type alprazolam 1 mg tablet 1 mg PO BID 06/10/23 07/23/23 History aspirin 81 mg tablet,delayed 81 mg PO DAILY 06/10/23 07/23/23 History release atorvastatin 80 mg tablet 80 mg PO DAILY 06/10/23 07/23/23 History buspirone 10 mg tablet 10 mg PO BID 06/10/23 07/23/23 History carvedilol 6.25 mg tablet 6.25 mg PO BID 06/10/23 07/23/23 History clopidogrel 75 mg tablet 75 mg PO DAILY 06/10/23 07/23/23 History dapagliflozin propanediol 10 mg 10 mg PO DAILY 06/10/23 07/23/23 History tablet (Farxiga) gabapentin 300 mg capsule 300 mg PO TID 06/10/23 07/23/23 History trazodone 50 mg tablet 50 mg PO DAILY 06/10/23 07/23/23 History levothyroxine 75 mcg tablet 75 mcg PO ACB #30 tabs 06/11/23 07/23/23 Rx albuterol sulfate 90 mcg/actuation 2 puff inhalation Q6H PRN 06/29/23 07/23/23 History aerosol inhaler shortness of breath or wheezing pantoprazole 40 mg tablet,delayed 40 mg PO DAILY 06/29/23 07/23/23 History release azithromycin 250 mg tablet See Rx Instructions PO .COMPLEX #6 07/22/23 07/23/23 Rx (Zithromax Z-Tobias) tabs furosemide 40 mg tablet 40 mg PO QAM 07/23/23 07/23/23 History spironolactone 25 mg tablet 25 mg PO QAM 07/23/23 07/23/23 History Allergies Allergy/AdvReac Type Severity Reaction Status Date / Time No Known Drug Allergies Allergy Verified 06/29/23 03:50 Exam Constitutional Vital Signs, click to edit/add: Last Vital Signs Temp 97.6 F 07/24/23 07:33 Pulse 76 07/24/23 07:33 Resp 22 07/24/23 07:33 BP 117/79 07/24/23 07:33 Pulse Ox 90 L 07/24/23 07:33 O2 Del Method Room Air 07/24/23 06:42 O2 Flow Rate 2 07/24/23 05:51 Documenting provider has reviewed patient's vital signs: yes Common normals: no apparent distress Chest Common normals: inspection of chest normal Respiratory Common normals: normal respiratory effort Auscultation: rhonchi right upper Cardio Common normals: regular rate and regular rhythm GI Common normals: Normal to inspection, nondistended, normoactive bowel sounds present Extremity Common normals: normal to inspection Neuro Common normals: oriented x3 and CN's II-XII intact bilaterally Results Labs Labs: Short CBC 07/23/23 07/24/23 Range/Units 18:57 04:46 WBC 19.8 H 14.7 H (4.0-11.0) 10^3/uL Hgb 11.0 L 10.5 L (12.0-16.0) g/dL Hct 37.5 36.0 (36.0-48.0) % Plt Count 353 297 (150-450) 10^3/uL BMP 07/23/23 07/24/23 18:57 04:46 Sodium 142 142 Potassium 4.3 5.1 Chloride 105 104 Carbon Dioxide 30.5 31.8 BUN 22.0 H 20.0 H Creatinine 1.08 H 0.96 Glucose 125 H 158 H Calcium 9.1 9.1 Liver Function 07/23/23 07/24/23 Range/Units 18:57 04:46 Total Bilirubin 0.2 0.2 (0.2-1.0) mg/dL AST 38 H 40 H (15-37) U/L ALT 55 59 (14-59) U/L Alkaline Phosphatase 89 85 (46-116) U/L Albumin 3.6 3.4 (3.4-5.0) g/dL Assessment and Plan Assessment and Plan (1) Hypoxia: (2) Dyspnea: Plan Uncontrolled hypertension, hypoxia, lactic acidosis, leukocytosis, secondary to right upper lobe pneumonia with acute exacerbation of COPD complicated by elevated high-sensitivity troponin and BNP. Continue with treatment for pneumonia with steroids, aerosols, antibiotics, try to obtain sputum culture Elevated high-sensitivity troponin and BNP-both are trending down. Check echocardiogram, consult to cardiology, on heparin drip Iron deficiency anemia-monitor daily Elevated renal function on admission, improved today, monitor daily Lifhjaqjxbwga-tnbghgo-nlnatbs-increase insulin sliding scale GERD-continue with home medications With her degree of hypoxia, elevated high-sensitivity review the troponin and the elevated BNP, likely secondary to demand ischemia-maintain patient as inpatient status due to the severity of the presenting illness. There is a chance she could be discharged home later today.
[2023-07-24 08:11] LABS: Glucometer 232 mg/dL (74-106)
[2023-07-24] MEDS: SPIRONOLACTONE 25 MG TABLET PO (08:11)
[2023-07-24] MEDS: ASPIRIN 81 MG TABLET.DR PO (08:11)
[2023-07-24] MEDS: BUSPIRONE HCL 10 MG TABLET PO ×2 (08:11→21:10)
[2023-07-24] MEDS: ATORVASTATIN CALCIUM 40 MG TABLET 80 MG PO (08:11)
[2023-07-24] MEDS: ALPRAZOLAM 1 MG TABLET PO ×2 (08:11→21:10)
[2023-07-24] MEDS: CLOPIDOGREL BISULFATE 75 MG TABLET PO (08:12)
[2023-07-24] MEDS: CARVEDILOL 6.25 MG TABLET PO ×2 (08:12→21:10)
[2023-07-24] MEDS: INSULIN ASPART 300 UNIT/3 ML PEN SUBQ ×4 (08:14→21:50)
--- NOTE | 2023-07-24 10:30 | SWNOTE1 ---
STANFORD met with pt to discuss dc needs. Pt lives at her apartment by herself. She does have a relationship with her son and granddaughter, they do help her as needed. She voiced she is working on getting her car fixed, but has to get insurance as her insurance . Pt did voice she walks to the grocery store to get her food. She stated yesterday when walking it felt like an elephant on her chest and she really struggled, that is why she came in. She also voiced she does get paid tomorrow so she will have money to get food. Pt stated when she was in [facility] her insurance did end up paying for a ride home 2x, but that was her limit. She ended up paying $200 to get home for one of her doctor visits in [place]. Pt voiced she is doing well compared to a few years ago when she was in hotel, then at homeless long-term. Pt voiced she is in a much better place and is happy, just needs to get her health figured out. She stated she does not smoke as much anymore. At this time pt denies any needs. Pt will likely need a ride home from trips.
[2023-07-24 11:14] LABS: PTT Heparin Monitor 82.8 sec (48.2-68.6)
[2023-07-24 11:34] LABS: Glucometer 279 mg/dL (74-106)
[2023-07-24] MEDS: 0.9 % SODIUM CHLORIDE 1,000 ML 75 ML IV (11:38)
[2023-07-24] MEDS: KETOROLAC TROMETHAMINE 30 MG/ML VIAL IVP (12:09)
--- NOTE | 2023-07-24 13:00 | PM.CACN ---
History of Present Illness History of Present Illness Consult date: 07/24/23 Requesting physician: Charlie Richardson Chief complaint: OTHER HYPOXIA ELEV TROPONIN ELEV BNP Narrative: 63-year-old female with past medical history of coronary artery disease status post percutaneous stent ?1 approximately two years ago,anxiety, hypertension with a recent implant of dual chamber PPM by Dr Chance last week at [facility] was admitted to for cough and shortness of breath. She denies any fevers or chills. She notified EMS who found her hypoxic of eighty percent and provided her with some oxygen and brought her to the hospital. In the Emergency Room she was saturating greater than ninety percent on room air. Her CBC and CMP were within normal limits. She did have an elevated troponin of eighty. Normal proBNP. EKG was concerning for TWI in the septal leads which are present over last few EKG. These were new compared to her stress test done in May 2023. Review of Systems ROS Status of ROS 10 or more systems reviewed and unremarkable except as noted in history and below Cardiovascular Reports: shortness of breath with exertion and shortness of breath when lying down Respiratory Reports: shortness of breath and cough [facility] Medical History (Updated 08/03/23 @ 00:00 by ) Acute kidney injury ?N17.9 - Acute kidney failure, unspecified (ICD-10) Acute anxiety ?F41.9 - Anxiety disorder, unspecified (ICD-10) Coronary artery disease ?I25.10 - Atherosclerotic heart disease of [place] coronary artery without angina pectoris (ICD-10) Pacemaker ?Z95.0 - Presence of cardiac pacemaker (ICD-10) Iron deficiency anemia ?D50.9 - Iron deficiency anemia, unspecified (ICD-10) COPD (chronic obstructive pulmonary disease) ?J44.9 - Chronic obstructive pulmonary disease, unspecified (ICD-10) Hypoxia ?R09.02 - Hypoxemia (ICD-10) Elevated troponin ?R79.89 - Other specified abnormal findings of blood chemistry (ICD-10) Dyspnea ?R06.00 - Dyspnea, unspecified (ICD-10) Elevated brain natriuretic peptide (BNP) level ?R79.89 - Other specified abnormal findings of blood chemistry (ICD-10) Hypertension ?I10 - Essential (primary) hypertension (ICD-10) Elevated troponin ?R79.89 - Other specified abnormal findings of blood chemistry (ICD-10) Acute dyspnea ?R06.00 - Dyspnea, unspecified (ICD-10) IBS (irritable bowel syndrome) ?K58.9 - Irritable bowel syndrome without diarrhea (ICD-10) Anxiety ?F41.9 - Anxiety disorder, unspecified (ICD-10) Heart attack ?I21.9 - Acute myocardial infarction, unspecified (ICD-10) Sciatic leg pain ?M54.30 - Sciatica, unspecified side (ICD-10) Herniated disc, cervical ?M50.20 - Other cervical disc displacement, unspecified cervical region (ICD-10) Surgical History History of appendectomy ?Z90.49 - Acquired absence of other specified parts of digestive tract (ICD-10) History of heart artery stent ?Z95.5 - Presence of coronary angioplasty implant and graft (ICD-10) Family History (Updated 07/29/23 @ 19:32 by Consuelo Dejesus RN) Mother Family history of CHF (congestive heart failure) Family history of hypertension Father Family history of CHF (congestive heart failure) Brother Family history of CHF (congestive heart failure) Other Family history of diabetes mellitus Family history of myocardial infarction Social History (Updated 07/29/23 @ 19:35 by Consuelo Dejesus RN) Within the past year, how often did you have a drink containing alcohol: monthly or less Smoking status: Current every day smoker Nicotine containing products detail: 1 pack/week Non-prescribed substance use: cannabis (any form) Non-prescribed substance use details: smokes marijuana, gummies Highest level of school completed/degree received: high school graduate Are you now , , , , never or living with a partner: In a typical week, how many times do you talk on the telephone with family, friends, or neighbors: once per week How often do you get together with friends or relatives: never How often do you attend christianity or islam services: 4 or more times per year Do you belong to any clubs or organizations such as christianity groups unions, fraternal or athletic groups, or school groups: no Total score: 1 Score interpretation: A score of less than or equal to 1 indicates the most socially isolated. Little interest or pleasure in doing things: several days Feeling down, depressed, or hopeless: several days Feel stressed/tense/nervous/anxious/difficulty sleeping: very much Life stressors: recent of family or friend Life stressor details: 2020 lost family Do you think of yourself as: straight/heterosexual Gender Identity: female Meds Home Medications and Allergies Home Medications ?Medication ?Instructions ?Recorded ?Confirmed ?Type alprazolam 1 mg tablet 1 mg PO BID 06/10/23 07/29/23 History aspirin 81 mg tablet,delayed 81 mg PO DAILY 06/10/23 07/29/23 History release atorvastatin 80 mg tablet 80 mg PO DAILY 06/10/23 07/29/23 History buspirone 10 mg tablet 10 mg PO BID 06/10/23 07/29/23 History carvedilol 6.25 mg tablet 6.25 mg PO BID 06/10/23 07/29/23 History clopidogrel 75 mg tablet 75 mg PO DAILY 06/10/23 07/29/23 History dapagliflozin propanediol 10 mg 10 mg PO DAILY 06/10/23 07/29/23 History tablet (Farxiga) gabapentin 300 mg capsule 300 mg PO TID 06/10/23 07/29/23 History trazodone 50 mg tablet 50 mg PO DAILY 06/10/23 07/29/23 History levothyroxine 75 mcg tablet 75 mcg PO ACB #30 tabs 06/11/23 07/29/23 Rx albuterol sulfate 90 mcg/actuation 2 puff inhalation Q6H PRN 06/29/23 07/29/23 History aerosol inhaler shortness of breath or wheezing pantoprazole 40 mg tablet,delayed 40 mg PO DAILY 06/29/23 07/29/23 History release furosemide 40 mg tablet 40 mg PO QAM 07/23/23 07/29/23 History spironolactone 25 mg tablet 25 mg PO QAM 07/23/23 07/29/23 History prednisone 10 mg tablet 30 mg (3 x 10 mg) PO DAILY #20 tabs 07/25/23 07/29/23 Rx cefdinir 300 mg capsule 300 mg PO BID 07/29/23 07/29/23 History cyclobenzaprine 10 mg tablet 10 mg PO Q12H PRN muscle spasm 07/29/23 07/29/23 History Allergies Allergy/AdvReac Type Severity Reaction Status Date / Time No Known Drug Allergies Allergy Verified 06/29/23 03:50 Exam Constitutional Vital Signs, click to edit/add: Last Vital Signs Temp 98.7 F 07/24/23 12:00 Pulse 75 07/24/23 12:10 Resp 21 07/24/23 12:10 BP 143/88 H 07/24/23 12:10 Pulse Ox 97 07/24/23 12:10 O2 Del Method Room Air 07/24/23 12:00 O2 Flow Rate 2 07/24/23 05:51 Common normals: no apparent distress General appearance: cooperative and comfortable [facility] Common normals: normocephalic Face and sinus: normal facial exam Chest Chest: pacemaker Respiratory Auscultation: crackles and rhonchi Cardio Common normals: no JVD, regular rate, regular rhythm, S1 normal heart sound, S2 normal heart sound, no gallops, no clicks, no murmurs, no rub and peripheral pulses 2+ throughout GI Common normals: Normal to inspection, nondistended, normoactive bowel sounds present Extremity Common normals: normal to inspection, full ROM, normal capillary refill, no joint enlargement, no clubbing, cyanosis or edema, no calf tenderness and no pedal edema Results Labs and Meds Lab results: Cardiac Enzymes 07/23/23 07/24/23 Range/Units 18:57 04:46 AST 38 H 40 H (15-37) U/L Coagulation 07/23/23 07/24/23 Range/Units 18:57 04:46 PT 9.4 9.6 (9.0-11.6) sec APTT 24.5 (22.3-36.2) sec CBC 07/23/23 07/24/23 Range/Units 18:57 04:46 WBC 19.8 H 14.7 H (4.0-11.0) 10^3/uL RBC 4.01 L 3.89 L (4.20-5.40) 10^6/uL Hgb 11.0 L 10.5 L (12.0-16.0) g/dL Hct 37.5 36.0 (36.0-48.0) % Plt Count 353 297 (150-450) 10^3/uL Neut # (Auto) 15.6 H 13.4 H (1.4-6.5) 10^3/uL Lymph # (Auto) 2.7 1.1 L (1.2-3.8) 10^3/uL [place] # (Auto) 1.3 H 0.2 L (0.3-0.8) 10^3/uL Eos # (Auto) 0.0 0.0 (0.0-0.7) 10^3/uL Baso # (Auto) 0.0 0.0 (0.0-0.1) 10^3/uL Comprehensive Metabolic Panel 07/23/23 07/24/23 Range/Units 18:57 04:46 Sodium 142 142 (136-145) mmol/L Potassium 4.3 5.1 (3.5-5.1) mmol/L Chloride 105 104 (98-107) mmol/L Carbon Dioxide 30.5 31.8 (21.0-32.0) mmol/L BUN 22.0 H 20.0 H (7.0-18.0) mg/dL Creatinine 1.08 H 0.96 (0.55-1.02) mg/dL Glucose 125 H 158 H (74-106) mg/dL Calcium 9.1 9.1 (8.5-10.1) mg/dL AST 38 H 40 H (15-37) U/L ALT 55 59 (14-59) U/L Alkaline Phosphatase 89 85 (46-116) U/L Total Protein 7.2 7.2 (6.4-8.2) g/dL Albumin 3.6 3.4 (3.4-5.0) g/dL Intake and Output 07/23/23 07/24/23 07/24/23 23:59 07:59 15:59 Intake Total 300 / 1203.488 423.488 / 7883.386 8600.917 / 1491.917 Output Total 250 / 975 625 / 975 600 / 600 Balance 50 / 228.488 -201.512 / 228.488 891.917 / 891.917 Intake: Oral 300 / 780 480 / 480 IV 423.488 / 551.529 3152.917 / 1011.917 0.9 % Sodium Chloride 1,000 ml 913.75 / 913.75 @ 75 mls/hr IV .[id number] [facility] Rx# :[id number] Azithromycin 500 mg In 0.9 % 250 / 250 Sodium Chloride 250 ml @ 250 mls/hr IV ONCE ONE Rx#:[id number] Ceftriaxone 1,000 mg In 0.9 % 50 / 50 Sodium Chloride 50 ml @ 100 mls /hr IV ONCE ONE Rx#:[id number] Heparin Sodium,Porcine/D5w 25, 123.488 / 123.488 98.167 / 98.167 000 unit In 500 ml @ 12 UNITS/ KG/HR 16.32 mls/hr IV ONCE ONE Rx#:[id number] Output: Urine 250 / 975 625 / 975 600 / 600 Other: Weight 76.2 kg Assessment and Plan Assessment and Plan (1) Non-ST elevation NV (NSTEMI): (2) Pneumonia: Plan Troponin elevation: Pt had ischemia eval done earlier and this revealed no significant CAD. Currently this could be a type II NV as there is no EKG evidence of plaque rupture. Treat underlying condition and follow up with cardiology. S/p PPM: CT device check PNA: ct Abx Sciatica: follow with PCP.
[2023-07-24] MEDS: ORPHENADRINE 60 MG/ 2 ML VIAL IV (13:46)
--- NOTE | 2023-07-24 14:00 | CM.NOTE ---
Important Message From Medicare discussed with pt, pt verbalizes understanding and signs paper. Original given to pt and copy placed in pt's chart.
[2023-07-24] MEDS: MORPHINE SULFATE 2 MG/ML SYRINGE IV (16:21)
[2023-07-24 17:06] LABS: Glucometer 232 mg/dL (74-106)
[2023-07-24 18:06] LABS: Troponin I High Sensitivity 210.2 pg/mL (4.0-51.3)
[2023-07-24] MEDS: PANTOPRAZOLE SODIUM 40 MG VIAL IV (21:10)
[2023-07-24] MEDS: AZITHROMYCIN 500 MG in 0.9 % SODIUM CHLORIDE 250 ML 250 MG IV (21:46)
[2023-07-24] MEDS: TRAZODONE HCL 50 MG TABLET PO (21:48)
[2023-07-24 21:56] LABS: Glucometer 191 mg/dL (74-106)
[2023-07-25] VITALS (76 sets, daily range): BP systolic 134–174; BP diastolic 82–117; PULSE 75–87; RESP 0–45; TEMP 36.4–36.5; O2SAT 87–95
[2023-07-25] MEDS: 0.9 % SODIUM CHLORIDE 1,000 ML 75 ML IV (01:20)
[2023-07-25] MEDS: ORPHENADRINE 60 MG/ 2 ML VIAL IV ×2 (01:20→06:18)
[2023-07-25] MEDS: METHYLPREDNISOLONE SOD SUCC PF 125 MG/2 ML VIAL 60 MG IVP (03:29)
[2023-07-25 03:32] LABS: Basophils Percent Auto 0.1 % (0.2-2.0); Hematocrit 33.6 % (36.0-48.0); Immature Granulocytes Abs Auto 0.08 10^3/uL (0.00-0.03); Immature Granulocytes Pct Auto 0.7 % (0.0-0.5); Lymphocytes Absolute Auto 1.2 10^3/uL (1.2-3.8); Lymphocytes Percent Auto 10.3 % (20.5-60.0); Mean Corpuscular HGB Conc 29.8 g/dL (29.9-35.2); Mean Corpuscular Hemoglobin 27.4 pg (26.7-34.0); Mean Corpuscular Volume 92.1 fL (81.0-99.0); Mean Platelet Volume 9.8 fL (9.5-13.5); Monocytes Absolute Auto 0.5 10^3/uL (0.3-0.8); Monocytes Percent Auto 4.5 % (1.7-12.0); Neutrophils Absolute Auto 9.8 10^3/uL (1.4-6.5); Neutrophils Percent Auto 84.4 % (43.0-75.0); Platelet Count 284 10^3/uL (150-450); Red Blood Count 3.65 10^6/uL (4.20-5.40); Red Cell Distribution Width 15.5 % (11.0-15.0); White Blood Count 11.6 10^3/uL (4.0-11.0)
[2023-07-25 04:29] LABS: Alanine Aminotransferase 109 U/L (14-59); Albumin Globulin Ratio 0.9; Alkaline Phosphatase 84 U/L (46-116); Aspartate Amino Transferase 99 U/L (15-37); BUN Creatinine Ratio 32.6; Bilirubin Total 0.2 mg/dL (0.2-1.0); Calcium 8.7 mg/dL (8.5-10.1); Carbon Dioxide 29.1 mmol/L (21.0-32.0); Chloride 106 mmol/L (98-107); Estimated GFR (African America >60 (>=60); Estimated GFR (Non-African Ame >60 (>=60); Globulin 3.5 g/dL; Glucose 172 mg/dL (74-106); Potassium 5.1 mmol/L (3.5-5.1); Sodium 141 mmol/L (136-145); Total Protein 6.5 g/dL (6.4-8.2)
[2023-07-25] MEDS: LEVOTHYROXINE SODIUM 75 MCG TABLET PO (05:52)
[2023-07-25] MEDS: GABAPENTIN 300 MG CAPSULE PO (05:52)
[2023-07-25] MEDS: KETOROLAC TROMETHAMINE 30 MG/ML VIAL IVP (05:53)
[2023-07-25 07:09] LABS: Troponin I High Sensitivity 205.8 pg/mL (4.0-51.3)
--- NOTE | 2023-07-25 07:49 | P.DS_ITS ---
DS: Providers Provider Date of admission: 07/23/23 22:16 Primary care physician: Charlie Richardson MD Consults: 07/23/23 21:38 Consult to Cardiology Routine Reason for consultation: NSTEMI Has provider been notified: Yes DS: Diagnosis Discharge Diagnosis (1) Hypoxia: (2) Dyspnea: (3) Elevated troponin: Plan Uncontrolled hypertension, hypoxia, lactic acidosis, leukocytosis, secondary to right upper lobe pneumonia with acute exacerbation of COPD complicated by elevated high-sensitivity troponin and BNP. Elevated high-sensitivity troponin and BNP due to demand ischemia Iron deficiency anemia Elevated renal function on admission, Hyperglycemia GERD DS: Summary Hospital Course Hospital Course: Patient is seen and evaluated in the emergency with increasing shortness of breath. Found to have right upper lobe pneumonia, cardiac workup also completed and ER due to history, her troponin was elevated, BNP also checked and that was elevated. The high-sensitivity troponins were tracked throughout the hospital stay and are overall improving. Her BNP is somewhat higher today. But she has no rales and no peripheral edema. She remained without hypoxia over the last 24 hours. Case was discussed with cardiology, feeling currently is the pneumonia, tipped the scales from her may be baseline ischemia. At some point she does need a cardiac cath would recover from the pneumonia apart first. She is ambulating without hypoxia this morning, she will be discharged home in improving condition. Medications see list. See me in the office next week. Set up with cardiology at that time. Time Spent with Patient Time attestation: Total time spent providing and/or coordinating discharge services: Exam Constitutional Vital Signs, click to edit/add: Last Vital Signs Temp 97.7 F 07/25/23 04:00 Pulse 80 07/25/23 07:22 Resp 22 07/25/23 07:22 BP 174/95 H 07/25/23 07:22 Pulse Ox 95 07/25/23 07:30 O2 Del Method Room Air 07/25/23 04:00 O2 Flow Rate 2 07/24/23 05:51 Common normals: no apparent distress General appearance: cooperative and comfortable [facility] Common normals: normocephalic Face and sinus: normal facial exam Chest Chest: pacemaker Respiratory Auscultation: crackles and rhonchi Cardio Common normals: no JVD, regular rate, regular rhythm, S1 normal heart sound, S2 normal heart sound, no gallops, no clicks, no murmurs, no rub and peripheral pulses 2+ throughout GI Common normals: Normal to inspection, nondistended, normoactive bowel sounds present Extremity Common normals: normal to inspection, full ROM, normal capillary refill, no joint enlargement, no clubbing, cyanosis or edema, no calf tenderness and no pedal edema DS: Data Data Completed and Pending Labs on day of discharge: Labs from last 24 hours 07/25/23 07/24/23 07/24/23 03:19 21:49 17:18 WBC 11.6 H RBC 3.65 L Hgb 10.0 L Hct 33.6 L MCV 92.1 MCH 27.4 MCHC 29.8 L RDW 15.5 H Plt Count 284 MPV 9.8 Neut % (Auto) 84.4 H Lymph % (Auto) 10.3 L [place] % (Auto) 4.5 Eos % (Auto) 0.0 L Baso % (Auto) 0.1 L Neut # (Auto) 9.8 H Lymph # (Auto) 1.2 [place] # (Auto) 0.5 Eos # (Auto) 0.0 Baso # (Auto) 0.0 Abs Immat Gran (auto) 0.08 H Imm/Tot Granulo (auto) 0.7 H PTT (Heparin Absorb) 40.0 L* Sodium 141 Potassium 5.1 Chloride 106 Carbon Dioxide 29.1 Anion Gap 11.0 BUN 30.0 H Creatinine 0.92 Est GFR ( Amer) >60 Est GFR (Non-Af Amer) >60 BUN/Creatinine Ratio 32.6 Glucose 172 H Calcium 8.7 Total Bilirubin 0.2 AST 99 H ALT 109 H Alkaline Phosphatase 84 Troponin I High Sens 205.8 H* 210.2 H* NT-Pro-B Natriuret Pep 5352.0 H* Total Protein 6.5 Albumin 3.0 L Globulin 3.5 Albumin/Globulin Ratio 0.9 POC Glucose 191 H 07/24/23 07/24/23 07/24/23 17:05 11:34 10:36 WBC RBC Hgb Hct MCV MCH MCHC RDW Plt Count MPV Neut % (Auto) Lymph % (Auto) [place] % (Auto) Eos % (Auto) Baso % (Auto) Neut # (Auto) Lymph # (Auto) [place] # (Auto) Eos # (Auto) Baso # (Auto) Abs Immat Gran (auto) Imm/Tot Granulo (auto) PTT (Heparin Absorb) 82.8 H* Sodium Potassium Chloride Carbon Dioxide Anion Gap BUN Creatinine Est GFR ( Amer) Est GFR (Non-Af Amer) BUN/Creatinine Ratio Glucose Calcium Total Bilirubin AST ALT Alkaline Phosphatase Troponin I High Sens NT-Pro-B Natriuret Pep Total Protein Albumin Globulin Albumin/Globulin Ratio POC Glucose 232 H 279 H 07/24/23 08:10 WBC RBC Hgb Hct MCV MCH MCHC RDW Plt Count MPV Neut % (Auto) Lymph % (Auto) [place] % (Auto) Eos % (Auto) Baso % (Auto) Neut # (Auto) Lymph # (Auto) [place] # (Auto) Eos # (Auto) Baso # (Auto) Abs Immat Gran (auto) Imm/Tot Granulo (auto) PTT (Heparin Absorb) Sodium Potassium Chloride Carbon Dioxide Anion Gap BUN Creatinine Est GFR ( Amer) Est GFR (Non-Af Amer) BUN/Creatinine Ratio Glucose Calcium Total Bilirubin AST ALT Alkaline Phosphatase Troponin I High Sens NT-Pro-B Natriuret Pep Total Protein Albumin Globulin Albumin/Globulin Ratio POC Glucose 232 H Discharge Plan Discharge Disposition: Home, Self-Care Condition: Good Discharge Medications: New cefdinir 300 mg capsule 600 mg PO DAILY Qty: 20 0RF prednisone 10 mg tablet 30 mg PO DAILY Qty: 20 0RF Rx Instructions: 3/day for 3 days, 2/day for 3 days, 1/day for 3 days, 1/2 /day for 4 days Continued pantoprazole 40 mg tablet,delayed release (DR/EC) 40 mg PO DAILY albuterol sulfate 90 mcg/actuation HFA aerosol inhaler 2 puff INHALATION Q6H PRN (Reason: shortness of breath or wheezing) furosemide 40 mg tablet 40 mg PO QAM spironolactone 25 mg tablet 25 mg PO QAM atorvastatin 80 mg tablet 80 mg PO DAILY carvedilol 6.25 mg tablet 6.25 mg PO BID alprazolam 1 mg tablet 1 mg PO BID clopidogrel 75 mg tablet 75 mg PO DAILY aspirin 81 mg tablet,delayed release (DR/EC) 81 mg PO DAILY buspirone 10 mg tablet 10 mg PO BID gabapentin 300 mg capsule 300 mg PO TID dapagliflozin propanediol [Farxiga] 10 mg tablet 10 mg PO DAILY trazodone 50 mg tablet 50 mg PO DAILY levothyroxine 75 mcg Tablet 75 mcg PO ACB Qty: 30 11RF Discontinued azithromycin [Zithromax Z-Tobias] 250 mg tablet See Rx Instructions .ROUTE .COMPLEX Qty: 6 0RF Patient Comments: 07/22/23-07/27/23 Rx Instructions: For 250 mg dose pack: take 500 mg today (day 1), then 250 mg for 4 days (days 2-5) Activity: increase activity as tolerated Diet: advance to your usual diet Print Language: Lithuanian Patient Instructions: Dyspnea (DC), Anxiety (ED) Forms: Portal Instructions Follow Up Appointments: [facility] office @ the [facility] device check July @ 10:30
[2023-07-25 08:59] LABS: Glucometer 188 mg/dL (74-106)
[2023-07-25] MEDS: ASPIRIN 81 MG TABLET.DR PO (08:59)
[2023-07-25] MEDS: PREDNISONE 20 MG TABLET PO ×2 (08:59→09:00)
[2023-07-25] MEDS: ATORVASTATIN CALCIUM 40 MG TABLET 80 MG PO (08:59)
[2023-07-25] MEDS: BUSPIRONE HCL 10 MG TABLET PO (09:00)
[2023-07-25] MEDS: SPIRONOLACTONE 25 MG TABLET PO (09:00)
[2023-07-25] MEDS: ALPRAZOLAM 1 MG TABLET PO (09:00)
[2023-07-25] MEDS: INSULIN ASPART 300 UNIT/3 ML PEN SUBQ (09:00)
[2023-07-25] MEDS: CARVEDILOL 6.25 MG TABLET PO (09:00)
[2023-07-25] MEDS: CLOPIDOGREL BISULFATE 75 MG TABLET PO (09:00)
--- NOTE | 2023-07-25 09:43 | SWNOTE1 ---
SW spoke to ICU personal secretary and she has already set up trips for pt as she had to schedule trips for her follow up apts as well.
--- NOTE | 2023-07-26 15:15 | CM.DCFOLLOWU ---
07/25- No answer 1st attempt
--- NOTE | 2023-07-30 14:11 | CM.NOTE ---
3rd call not attempted. Pt readmitted to hospital.
--- NOTE | 2023-08-01 14:29 | CM.NOTE ---
08/01/23 14:25 2nd attempt to complete discharge followup call and no answer.
== END 2023-07-25 12:24 | disposition home or self-care (01) | DRG 193 ==
LOC: ER 20:38 → ICU 22:18
PROVIDERS: Internal Medicine; Nurse Practitioner Acute Care; Nurse Practitioner Family; Admitting Provider Family Medicine; Emergency Provider Emergency Medicine; PCP Family Medicine; Visit Provider Family Medicine
DX: J18.9 Pneumonia, unspecified organism (principal); I21.A1 Myocardial infarction type 2; J44.1 Chronic obstructive pulmonary disease with (acute) exacerbation; J44.0 Chronic obstructive pulmonary disease with (acute) lower respiratory infection; E87.20 Acidosis, unspecified; R09.02 Hypoxemia; F41.9 Anxiety disorder, unspecified; I10 Essential (primary) hypertension; D50.9 Iron deficiency anemia, unspecified; R94.4 Abnormal results of kidney function studies; R73.9 Hyperglycemia, unspecified; T38.0X5A Adverse effect of glucocorticoids and synthetic analogues, initial encounter; K21.9 Gastro-esophageal reflux disease without esophagitis; R74.8 Abnormal levels of other serum enzymes; D72.829 Elevated white blood cell count, unspecified; K58.9 Irritable bowel syndrome, unspecified; F17.210 Nicotine dependence, cigarettes, uncomplicated; F12.90 Cannabis use, unspecified, uncomplicated; Z95.0 Presence of cardiac pacemaker; Z79.82 Long term (current) use of aspirin; Z79.899 Other long term (current) drug therapy; I25.2 Old myocardial infarction; Z95.5 Presence of coronary angioplasty implant and graft; Z90.49 Acquired absence of other specified parts of digestive tract; I25.10 Atherosclerotic heart disease of native coronary artery without angina pectoris; Z20.822 Contact with and (suspected) exposure to COVID-19
CPT/HCPCS: 0202U; 36415; 71045; 80053; 82948; 83605; 83735; 83880; 84484; 85025; 85610; 85730; 87040; 87070; 93005; 93308; 94640; 94761; 96365; 96366; 96367; 96368; 96375; 96376; 99285; J0456; J2930

== ENCOUNTER 2023-07-29 15:52 | Observation (INO) | payer OTHER, SELFPAY ==
[2023-07-29] VITALS (24 sets, daily range): BP systolic 115–150; BP diastolic 78–100; PULSE 74–101; RESP 13–27; TEMP 36.6–36.8; O2SAT 94–99; BMI 25.8; BMI 25.6
--- NOTE | 2023-07-29 16:01 | ECG_ITS ---
[facility] Test Date: 2023-07-29 Pat Name: EMERY JETT Department: Room: - Gender: Female [employer]: : 1960 Requested By: ЕКАТЕРИНА ROBERT Order Number: [id number] Reading MD: EBONIE BOLIVAR Measurements Intervals [place] Rate: 95 P: -03639 HI: -80069 QRS: 24 QRSD: 66 T: 120 QT: 298 QTc: 351 Interpretive Statements 1400 Undetermined rhythm (Possible supraventricular rhythm) 4068 Nonspecific [place] abnormality 8305 Short QTc interval 9150 abnormal ECG Compared to ECG 07/24/2023 05:55:36 Atrial-paced complex(es) or rhythm no longer present Possible ischemia no longer present Electronically Signed On 07-31-2023 22:51:27 EDT by EBONIE BOLIVAR
--- NOTE | 2023-07-29 16:01 | XR_ITS ---
The [address] [address] Patient Name: EMERY JETT MRN: [id number] date: 1960 Sex: F Assigned Patient Location: ER Current Patient Location: ER Accession/Order Number: [id number] Exam Date: 07/29/2023 16:35 Report Date: 07/29/2023 16:58 At the request of: MARIVEL SCRUGGS Procedure: XR chest 1V EXAM: CHEST 1 VIEW HISTORY: SOB TECHNIQUE: Chest, one view. COMPARISON: None. FINDINGS: Lungs are mildly hyperinflated. No focal consolidation, pleural effusion, or pneumothorax. Pulmonary vasculature is within normal limits. Cardiomediastinal silhouette is normal. There is a left pectoral cardiac pacemaker device. XR/XR chest 1V IMPRESSION: 1. No acute cardiopulmonary disease. Electronically authenticated by: JOSE GIMENEZ Date: 07/29/2023 16:58
--- OUTSIDE RECORDS SUMMARY | 2023-07-29 16:09 | XMS_ITS | CCD ---
Author Name Unknown Address [address] [place] [address] Organization [facility] Care Team Providers Care Frame Runner Name Role Phone KEISHA DORADO JR Attending Unavailable PATRICIA CORDERO Primary Care Unavailable TAMIE FAJARDO Attending Unavailable UMAIR MANDUJANO Admitting Unavailable GASPER AVENDANO Referring Unavailable ЕКАТЕРИНА ROBERT Primary Care Unavailable Екатерина Robert Primary Care Physician [phone] DR ЕКАТЕРИНА CHARLES Consulting Unavailable JOSELINEY ., [...] EDGE Consulting Unavailable [employer] Consulting Unavailable LNIDA MARRERO Consulting Unavailable BETINA ALVAREZ Consulting Unavailable [...] Unavailable Elvin, Magdalena E Admitting Unavailable Екатерина Rboert Primary Care Unavailable Allergies Allergy Classification Reported Allergen(s) Allergy Type Date of Onset Reaction(s) Facility (1 source) bee venom Drug allergy (disorder) 1 [facility] Repository (1 source) house dust allergenic extract; 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: [HOUSE DUST] Drug Allergy 4 [facility] Repository (1 source) HAY FEVER AND ALLERGY RELIEF; 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: [HAY FEVER AND ALLERGY RELIEF] Propensity to adverse reactions to drug (disorder) 4 [facility] Repository Medications Current Medications Medication Drug Class(es) [...] oral solution (2 sources) alpha-Adrenergic Agonist, Uncompetitive I-tieidk-O-aspart ate Receptor Antagonist, Sigma-1 Agonist Start: 08-10-19 [...] day(s), # 14 tab(s), Refills(s) 0, Pharmacy: [facility], 170.2, cm, 08/09/22 13:13:00 EDT, Height/Length [...] day(s), # 15 tab(s), Refills(s) 0, Pharmacy: [facility], 170.2, cm, 08/09/22 13:13:00 EDT, [...] disease (6 sources) Atherosclerotic heart disease of [place] coronary artery without angina pectoris; 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: [Old [...] 2 Chronic Other aftercare (1 source) Other halfway (current) drug therapy; 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: [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] Onset: 3 Episodic 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; 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: [SENIOR LIVING CURRENT USE OF ASPIRIN] Onset: 3 Episodic Other aftercare (1 source) care home (current) use of antithrombotics/antipl atelets; 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: [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 Tried calling pts ER contact but it is a food pantry and was only a VM option. Did not leave message. [facility] 07-11-2023 30 The patient is Moderately Stable - Low risk of patient condition declining or worsening The patient's goals for the shift include pain control The clinical goals for the shift include maintain pacemaker precautions Over the shift, the patient did not make progress toward the following goals. Barriers to progression include na. Recommendations to address these barriers include na. [facility] 30 The patient is Moderately [...] safe level of function Outcome: Progressing Normal [facility] BASIC METABOLIC PANELon 06-15 Anion gap [Moles/Vol] 15 mmol/L Normal 7-20 [facility] Comment on above: Performed By: #### L [id number] #### [facility] ([facility]) [address] [place] [address] Calcium [Mass/Vol] 9.4 mg/dL Normal 8.6-10.3 [facility] Comment on above: Performed By: #### L [id number] #### [facility] ([facility]) [address] [place] [address] Chloride [Moles/Vol] 97 mmol/L Low 98-107 [facility] Comment on above: Performed By: #### L [id number] #### [facility] ([facility]) [address] [place] [address] CO2 [Moles/Vol] 27 mmol/L Normal 21-31 [facility] Comment on above: Performed By: #### L [id number] #### [facility] ([facility]) [address] [place] [address] Creatinine [Mass/Vol] 1.15 mg/dL Normal 0.60-1.20 [facility] Comment on above: Performed By: #### L [id number] #### [facility] ([facility]) [address] [place] [address] GLOMERULAR FILTRATION RATE ML/MIN/1.73 SQ M.PREDICTED 53.9 mL/min/1.73m*2 Low >60.0 [facility] Comment on above: Result Comment: The [facility]???s estimated glomerular filtration rate (eGFR) will no [...] individuals. Performed By: #### L [id number] #### [facility] ([facility]) [address] [place] [address] Glucose [Mass/Vol] 143 mg/dL High 70-100 [facility] Comment on above: Performed By: #### L [id number] #### [facility] ([facility]) [address] [place] [address] Potassium [Moles/Vol] 3.9 mmol/L Normal 3.5-5.1 [facility] Comment on above: Performed By: #### L [id number] #### [facility] ([facility]) [address] [place] [address] Sodium [Moles/Vol] 135 mmol/L Low 136-145 [facility] Comment on above: Performed By: #### L [id number] #### [facility] ([facility]) [address] [place] [address] Urea nitrogen [Mass/Vol] 32 mg/dL High 7-25 [facility] Comment on above: Performed By: #### L [id number] #### [facility] ([facility]) [address] [place] [address] UREA NITROGEN/CREATININE (MASS RATIO) IN SER/PLAS 27.8 Normal [facility] Comment on above: Performed By: #### L [id number] #### [facility] ([facility]) [address] [facility] [place] [address] CBC WITH AUTO DIFFERENTIALon 07-11-2023 Basophils (Bld) [#/Vol] 0.03 10*3/uL Normal 0.00-0.20 [facility] Comment on above: Performed By: #### L [id number] #### [facility] ([facility]) [address] [place] [address] Basophils/100 WBC (Bld) 0.3 % Normal 0.0-1.0 [facility] Comment on above: Performed By: #### L [id number] #### [facility] ([facility]) [address] [place] [address] Eosinophils (Bld) [#/Vol] 0.32 10*3/uL Normal 0.00-0.50 [facility] Comment on above: Performed By: #### L [id number] #### [facility] ([facility]) [address] [place] [address] Eosinophils/100 WBC (Bld) 2.8 % Normal 0.0-6.0 [facility] Comment on above: Performed By: #### L [id number] #### [facility] ([facility]) [address] [place] [address] Erythrocyte distribution width (RBC) [Ratio] 15.3 % High 11.5-15.0 [facility] Comment on above: Performed By: #### L [id number] #### [facility] ([facility]) [address] [place] [address] ERYTHROCYTE MEAN CORPUSCULAR HEMOGLOBIN CONCENTRATION (G/DL) BY AUTOMATED 32.0 g/dL Normal 32.0-35.0 [facility] Comment on above: Performed By: #### L [id number] #### [facility] ([facility]) [address] [place] [address] Hematocrit (Bld) [Volume fraction] 40.9 % Normal 36.0-48.0 [facility] Comment on above: Performed By: #### L [id number] #### [facility] ([facility]) [address] [place] [address] Hemoglobin (Bld) [Mass/Vol] 13.1 g/dL Normal 12.0-15.0 [facility] Comment on above: Performed By: #### L [id number] #### [facility] ([facility]) [address] [place] [address] Immature granulocytes (Bld) [#/Vol] 0.04 10*3/uL Normal 0.00-0.20 [facility] Comment on above: Performed By: #### L [id number] #### [facility] ([facility]) [address] [place] [address] Immature granulocytes/100 WBC (Bld) 0.3 % Normal 0.0-1.0 [facility] Comment on above: Performed By: #### L [id number] #### [facility] ([facility]) [address] [place] [address] Lymphocytes (Bld) [#/Vol] 3.16 10*3/uL Normal 1.20-4.00 [facility] Comment on above: Performed By: #### L [id number] #### [facility] ([facility]) [address] [place] [address] Lymphocytes/100 WBC (Bld) 27.4 % Normal 20.0-45.0 [facility] Comment on above: Performed By: #### L [id number] #### [facility] ([facility]) [address] [place] [address] MCH (RBC) [Entitic mass] 27.9 pg Normal 27.0-33.0 [facility] Comment on above: Performed By: #### L [id number] #### [facility] ([facility]) [address] [place] [address] MCV (RBC) [Entitic vol] 87.0 fL Normal 82.0-98.0 [facility] Comment on above: Performed By: #### L [id number] #### [facility] ([facility]) [address] [place] [address] Monocytes (Bld) [#/Vol] 0.85 10*3/uL Normal 0.10-1.00 [facility] Comment on above: Performed By: #### L [id number] #### [facility] ([facility]) [address] [place] [address] Monocytes/100 WBC (Bld) 7.4 % Normal 5.0-12.0 [facility] Comment on above: Performed By: #### L [id number] #### [facility] ([facility]) [address] [place] [address] Neutrophils (Bld) [#/Vol] 7.12 10*3/uL Normal 1.60-7.60 [facility] Comment on above: Performed By: #### L [id number] #### [facility] ([facility]) [address] [place] [address] Neutrophils/100 WBC (Bld) 61.8 % Normal 40.0-72.0 [facility] Comment on above: Performed By: #### L [id number] #### [facility] ([facility]) [address] [place] [address] NRBC (PER 100 WBCS) BY AUTOMATED COUNT 0.0 % Normal 0 [facility] Comment on above: Performed By: #### L [id number] #### [facility] ([facility]) [address] [place] [address] PLATELETS (10*3/UL) IN BLOOD AUTOMATED COUNT 339 10*3/uL Normal 150-400 [facility] Comment on above: Performed By: #### L [id number] #### [facility] ([facility]) [address] [place] [address] RBC (Bld) [#/Vol] 4.70 10*6/uL Normal 3.80-5.00 [facility] Comment on above: Performed By: #### L [id number] #### [facility] ([facility]) [address] [place] [address] WBC (Bld) [#/Vol] 11.52 10*3/uL High 4.00-10.60 [facility] Comment on above: Performed By: #### L [id number] #### [facility] ([facility]) [address] [place] [address] 30on 07-10-2023 30 Problem: Pain - Adul [...] complex ne (more content not included)... Normal [facility] 30 Daily Case Managemen t Update Multidisciplinary [...] Consultation Consultation and Management 07/06/23 1050 Normal [facility] 30 The patient is Moderately Stable - [...] and behaviors that affect risk of falls [place] fall precautions as indicated by assessment Educate [...] and prevent overall improvement and discharge Normal [facility] BASIC METABOLIC PANELon 06-15 Anion gap [Moles/Vol] 13 mmol/L Normal 7-20 [facility] Comment on above: Performed By: #### L [id number] ####[facility] ([facility])[address] [place] [address] Calcium [Mass/Vol] 9.9 mg/dL Normal 8.6-10.3 [facility] Comment on above: Performed By: #### L [id number] ####[facility] ([facility])[address] [place] [address] Chloride [Moles/Vol] 97 mmol/L Low 98-107 [facility] Comment on above: Performed By: #### L [id number] ####[facility] ([facility])[address] [place] [address] CO2 [Moles/Vol] 30 mmol/L Normal 21-31 [facility] Comment on above: Performed By: #### L [id number] ####[facility] ([facility])[address] [place] [address] Creatinine [Mass/Vol] 1.06 mg/dL Normal 0.60-1.20 [facility] Comment on above: Performed By: #### L [id number] ####[facility] ([facility])[address] [place] [address] GLOMERULAR FILTRATION RATE ML/MIN/1.73 SQ M.PREDICTED 59.4 mL/min/1.73m*2 Low >60.0 [facility] Comment on above: Result Comment: The [facility]???s estimated glomerular filtration rate (eGFR) will no [...] of individuals. Performed By: #### L [id number] ####[facility] ([facility])[address] [place] [address] Glucose [Mass/Vol] 139 mg/dL High 70-100 [facility] Comment on above: Performed By: #### L [id number] ####[facility] ([facility])[address] [place] [address] Potassium [Moles/Vol] 3.9 mmol/L Normal 3.5-5.1 [facility] Comment on above: Performed By: #### L [id number] ####[facility] ([facility])[address] [place] [address] Sodium [Moles/Vol] 136 mmol/L Normal 136-145 [facility] Comment on above: Performed By: #### L [id number] ####[facility] ([facility])[address] [place] [address] Urea nitrogen [Mass/Vol] 23 mg/dL Normal 7-25 [facility] Comment on above: Performed By: #### L [id number] ####[facility] ([facility])[address] [place] [address] UREA NITROGEN/CREATININE (MASS RATIO) IN SER/PLAS 21.7 Normal [facility] Comment on above: Performed By: #### L [id number] ####[facility] ([facility])[address] [place] [address] CBC WITH AUTO DIFFERENTIALon 07-10-2023 Basophils (Bld) [#/Vol] 0.02 10*3/uL Normal 0.00-0.20 [facility] Comment on above: Performed By: #### L [id number] ####[facility] ([facility])[address] [place] [address] Basophils/100 WBC (Bld) 0.2 % Normal 0.0-1.0 [facility] Comment on above: Performed By: #### L [id number] ####[facility] ([facility])[address] [place] [address] Eosinophils (Bld) [#/Vol] 0.53 10*3/uL High 0.00-0.50 [facility] Comment on above: Performed By: #### L [id number] ####[facility] ([facility])[address] [place] [address] Eosinophils/100 WBC (Bld) 5.0 % Normal 0.0-6.0 [facility] Comment on above: Performed By: #### L [id number] ####[facility] ([facility])[address] [place] [address] Erythrocyte distribution width (RBC) [Ratio] 15.3 % High 11.5-15.0 [facility] Comment on above: Performed By: #### L [id number] ####[facility] ([facility])[address] [place] [address] ERYTHROCYTE MEAN CORPUSCULAR HEMOGLOBIN CONCENTRATION (G/DL) BY AUTOMATED 32.9 g/dL Normal 32.0-35.0 [facility] Comment on above: Performed By: #### L [id number] ####[facility] ([facility])[address] [place] [address] Hematocrit (Bld) [Volume fraction] 42.6 % Normal 36.0-48.0 [facility] Comment on above: Performed By: #### L [id number] ####[facility] ([facility])[address] [place] [address] Hemoglobin (Bld) [Mass/Vol] 14.0 g/dL Normal 12.0-15.0 [facility] Comment on above: Performed By: #### L [id number] ####[facility] ([facility])[address] [place] [address] Immature granulocytes (Bld) [#/Vol] 0.02 10*3/uL Normal 0.00-0.20 [facility] Comment on above: Performed By: #### L [id number] ####[facility] ([facility])[address] [place] [address] Immature granulocytes/100 WBC (Bld) 0.2 % Normal 0.0-1.0 [facility] Comment on above: Performed By: #### L [id number] ####[facility] ([facility])[address] [place] [address] Lymphocytes (Bld) [#/Vol] 3.34 10*3/uL Normal 1.20-4.00 [facility] Comment on above: Performed By: #### L [id number] ####[facility] ([facility])[address] [place] [address] Lymphocytes/100 WBC (Bld) 31.7 % Normal 20.0-45.0 [facility] Comment on above: Performed By: #### L [id number] ####[facility] ([facility])[address] [place] [address] MCH (RBC) [Entitic mass] 28.3 pg Normal 27.0-33.0 [facility] Comment on above: Performed By: #### L [id number] ####[facility] ([facility])[address] [place] [address] MCV (RBC) [Entitic vol] 86.2 fL Normal 82.0-98.0 [facility] Comment on above: Performed By: #### L [id number] ####[facility] ([facility])[address] [place] [address] Monocytes (Bld) [#/Vol] 0.60 10*3/uL Normal 0.10-1.00 [facility] Comment on above: Performed By: #### L [id number] ####[facility] ([facility])[address] [place] [address] Monocytes/100 WBC (Bld) 5.7 % Normal 5.0-12.0 [facility] Comment on above: Performed By: #### L [id number] ####[facility] ([facility])[address] [place] [address] Neutrophils (Bld) [#/Vol] 6.01 10*3/uL Normal 1.60-7.60 [facility] Comment on above: Performed By: #### L [id number] ####[facility] ([facility])[address] [place] [address] Neutrophils/100 WBC (Bld) 57.2 % Normal 40.0-72.0 [facility] Comment on above: Performed By: #### L [id number] ####[facility] ([facility])[address] [place] [address] NRBC (PER 100 WBCS) BY AUTOMATED COUNT 0.0 % Normal 0 [facility] Comment on above: Performed By: #### L [id number] ####[facility] ([facility])[address] [place] [address] PLATELETS (10*3/UL) IN BLOOD AUTOMATED COUNT 329 10*3/uL Normal 150-400 [facility] Comment on above: Performed By: #### L [id number] ####[facility] ([facility])[address] [place] [address] RBC (Bld) [#/Vol] 4.94 10*6/uL Normal 3.80-5.00 [facility] Comment on above: Performed By: #### L [id number] ####[facility] ([facility])[address] [place] [address] WBC (Bld) [#/Vol] 10.52 10*3/uL Normal 4.00-10.60 [facility] Comment on above: Performed By: #### L [id number] ####[facility] ([place])[address] [place] [place] [address] HPon 07-10-2023 HP History Of Present Illness [...] Problems: Junctional bradycardia Pacemaker Loree Chance [facility] 30on 07-09-2023 30 Problem: Cardiovascular [...] shift include pacemaker placement without issues Normal [facility] 30 Daily Case Managemen t Update Multidisciplinary [...] Consultation Consultation and Management 07/06/23 1050 Normal [facility] BASIC METABOLIC PANELon 06-15 Anion gap [Moles/Vol] 9 mmol/L Normal 7-20 [facility] Comment on above: Performed By: #### L [id number] #### [facility] ([facility]) [address] [place] [address] Calcium [Mass/Vol] 9.1 mg/dL Normal 8.6-10.3 [facility] Comment on above: Performed By: #### L [id number] #### [facility] ([facility]) [address] [place] [address] Chloride [Moles/Vol] 99 mmol/L Normal 98-107 [facility] Comment on above: Performed By: #### L [id number] #### [facility] ([facility]) [address] [place] [address] CO2 [Moles/Vol] 32 mmol/L High 21-31 [facility] Comment on above: Performed By: #### L [id number] #### [facility] ([facility]) [address] [place] [address] Creatinine [Mass/Vol] 0.98 mg/dL Normal 0.60-1.20 [facility] Comment on above: Performed By: #### L [id number] #### [facility] ([facility]) [address] [place] [address] GLOMERULAR FILTRATION RATE ML/MIN/1.73 SQ M.PREDICTED 65.3 mL/min/1.73m*2 Normal >60.0 [facility] Comment on above: Result Comment: [facility]???s estimated glomerular filtration rate (eGFR) will no [...] individuals. Performed By: #### L [id number] #### [facility] ([facility]) [address] [facility] [place] [address] Glucose [Mass/Vol] 131 mg/dL High 70-100 [facility] Comment on above: Performed By: #### L [id number] #### [facility] ([facility]) [address] [place] [address] Potassium [Moles/Vol] 4.3 mmol/L Normal 3.5-5.1 [facility] Comment on above: Performed By: #### L [id number] #### [facility] ([facility]) [address] [place] [address] Sodium [Moles/Vol] 136 mmol/L Normal 136-145 [facility] Comment on above: Performed By: #### L [id number] #### [facility] ([facility]) [address] [place] [address] Urea nitrogen [Mass/Vol] 23 mg/dL Normal 7-25 [facility] Comment on above: Performed By: #### L [id number] #### [facility] ([facility]) [address] [place] [address] UREA NITROGEN/CREATININE (MASS RATIO) IN SER/PLAS 23.5 Normal [facility] Comment on above: Performed By: #### L [id number] #### [facility] ([facility]) [address] [place] [address] CBC WITH AUTO DIFFERENTIALon 07-09-2023 Basophils (Bld) [#/Vol] 0.03 10*3/uL Normal 0.00-0.20 [facility] Comment on above: Performed By: #### L [id number] #### [facility] ([facility]) [address] [place] [address] Basophils/100 WBC (Bld) 0.3 % Normal 0.0-1.0 [facility] Comment on above: Performed By: #### L [id number] #### [facility] ([facility]) [address] [place] [address] Eosinophils (Bld) [#/Vol] 0.54 10*3/uL High 0.00-0.50 [facility] Comment on above: Performed By: #### L [id number] #### [facility] ([facility]) [address] [place] [address] Eosinophils/100 WBC (Bld) 4.9 % Normal 0.0-6.0 [facility] Comment on above: Performed By: #### L [id number] #### [facility] ([facility]) [address] [place] [address] Erythrocyte distribution width (RBC) [Ratio] 15.0 % Normal 11.5-15.0 [facility] Comment on above: Performed By: #### L [id number] #### [facility] ([facility]) [address] [place] [address] ERYTHROCYTE MEAN CORPUSCULAR HEMOGLOBIN CONCENTRATION (G/DL) BY AUTOMATED 32.8 g/dL Normal 32.0-35.0 [facility] Comment on above: Performed By: #### L [id number] #### [facility] ([facility]) [address] [place] [address] Hematocrit (Bld) [Volume fraction] 37.5 % Normal 36.0-48.0 [facility] Comment on above: Performed By: #### L [id number] #### [facility] ([facility]) [address] [place] [address] Hemoglobin (Bld) [Mass/Vol] 12.3 g/dL Normal 12.0-15.0 [facility] Comment on above: Performed By: #### L [id number] #### [facility] ([facility]) [address] [place] [address] Immature granulocytes (Bld) [#/Vol] 0.03 10*3/uL Normal 0.00-0.20 [facility] Comment on above: Performed By: #### L [id number] #### [facility] ([facility]) [address] [place] [address] Immature granulocytes/100 WBC (Bld) 0.3 % Normal 0.0-1.0 [facility] Comment on above: Performed By: #### L [id number] #### [facility] ([facility]) [address] [place] [address] Lymphocytes (Bld) [#/Vol] 3.76 10*3/uL Normal 1.20-4.00 [facility] Comment on above: Performed By: #### L [id number] #### [facility] ([facility]) [address] [place] [address] Lymphocytes/100 WBC (Bld) 34.1 % Normal 20.0-45.0 [facility] Comment on above: Performed By: #### L [id number] #### [facility] ([facility]) [address] [place] [address] MCH (RBC) [Entitic mass] 28.5 pg Normal 27.0-33.0 [facility] Comment on above: Performed By: #### L [id number] #### [facility] ([facility]) [address] [place] [address] MCV (RBC) [Entitic vol] 87.0 fL Normal 82.0-98.0 [facility] Comment on above: Performed By: #### L [id number] #### [facility] ([facility]) [address] [place] [address] Monocytes (Bld) [#/Vol] 0.64 10*3/uL Normal 0.10-1.00 [facility] Comment on above: Performed By: #### L [id number] #### [facility] ([facility]) [address] [place] [address] Monocytes/100 WBC (Bld) 5.8 % Normal 5.0-12.0 [facility] Comment on above: Performed By: #### L [id number] #### [facility] ([facility]) [address] [place] [address] Neutrophils (Bld) [#/Vol] 6.03 10*3/uL Normal 1.60-7.60 [facility] Comment on above: Performed By: #### L [id number] #### [facility] ([facility]) [address] [place] [address] Neutrophils/100 WBC (Bld) 54.6 % Normal 40.0-72.0 [facility] Comment on above: Performed By: #### L [id number] #### [facility] ([facility]) [address] [place] [address] NRBC (PER 100 WBCS) BY AUTOMATED COUNT 0.0 % Normal 0 [facility] Comment on above: Performed By: #### L [id number] #### [facility] ([facility]) [address] [place] [address] PLATELETS (10*3/UL) IN BLOOD AUTOMATED COUNT 285 10*3/uL Normal 150-400 [facility] Comment on above: Performed By: #### L [id number] #### [facility] ([facility]) [address] [place] [address] RBC (Bld) [#/Vol] 4.31 10*6/uL Normal 3.80-5.00 [facility] Comment on above: Performed By: #### L [id number] #### [facility] ([facility]) [address] [place] [address] WBC (Bld) [#/Vol] 11.03 10*3/uL High 4.00-10.60 [facility] Comment on above: Performed By: #### L [id number] #### [facility] ([facility]) [address] [place] [address] 30on 07-08-2023 30 The patient is Moderately [...] Maintains adequate nutritional intake Outcome: Progressing Normal [facility] 30 Problem: Cardiovascular - Adult Goal: Maintains [...] for the shift include stable bp Normal [facility] BASIC METABOLIC PANELon 06-15 Anion gap [Moles/Vol] 10 mmol/L Normal 7-20 [facility] Comment on above: Performed By: #### L [id number] ####[facility] ([facility])[address] [place] [address] Calcium [Mass/Vol] 9.0 mg/dL Normal 8.6-10.3 [facility] Comment on above: Performed By: #### L [id number] ####[facility] ([facility])[address] [place] [address] Chloride [Moles/Vol] 97 mmol/L Low 98-107 [facility] Comment on above: Performed By: #### L [id number] ####[facility] ([facility])[address] [place] [address] CO2 [Moles/Vol] 33 mmol/L High 21-31 [facility] Comment on above: Performed By: #### L [id number] ####[facility] ([facility])[address] [place] [address] Creatinine [Mass/Vol] 1.30 mg/dL High 0.60-1.20 [facility] Comment on above: Performed By: #### L [id number] ####[facility] ([facility])[address] [place] [address] GLOMERULAR FILTRATION RATE ML/MIN/1.73 SQ M.PREDICTED 46.5 mL/min/1.73m*2 Low >60.0 [facility] Comment on above: Result Comment: [facility]???s estimated glomerular filtration rate (eGFR) will no [...] of individuals. Performed By: #### L [id number] ####[facility] ([facility])[address] [place] [address] Glucose [Mass/Vol] 214 mg/dL High 70-100 [facility] Comment on above: Performed By: #### L [id number] ####[facility] ([facility])[address] [place] [address] Potassium [Moles/Vol] 3.9 mmol/L Normal 3.5-5.1 [facility] Comment on above: Performed By: #### L [id number] ####[facility] ([facility])[address] [place] [address] Sodium [Moles/Vol] 136 mmol/L Normal 136-145 [facility] Comment on above: Performed By: #### L [id number] ####[facility] ([facility])[address] [place] [address] Urea nitrogen [Mass/Vol] 26 mg/dL High 7-25 [facility] Comment on above: Performed By: #### L [id number] ####[facility] ([facility])[address] [place] [address] UREA NITROGEN/CREATININE (MASS RATIO) IN SER/PLAS 20.0 Normal [facility] Comment on above: Performed By: #### L [id number] ####[facility] ([facility])[address] [place] [address] CBC WITH AUTO DIFFERENTIALon 07-08-2023 Basophils (Bld) [#/Vol] 0.04 10*3/uL Normal 0.00-0.20 [facility] Comment on above: Performed By: #### L [id number] #### [facility] ([facility]) [address] [place] [address] Basophils/100 WBC (Bld) 0.3 % Normal 0.0-1.0 [facility] Comment on above: Performed By: #### L [id number] #### [facility] ([facility]) [address] [place] [address] Eosinophils (Bld) [#/Vol] 0.51 10*3/uL High 0.00-0.50 [facility] Comment on above: Performed By: #### L [id number] #### [facility] ([facility]) [address] [place] [address] Eosinophils/100 WBC (Bld) 4.1 % Normal 0.0-6.0 [facility] Comment on above: Performed By: #### L [id number] #### [facility] ([facility]) [address] [place] [address] Erythrocyte distribution width (RBC) [Ratio] 15.0 % Normal 11.5-15.0 [facility] Comment on above: Performed By: #### L [id number] #### [facility] ([facility]) [address] [place] [address] ERYTHROCYTE MEAN CORPUSCULAR HEMOGLOBIN CONCENTRATION (G/DL) BY AUTOMATED 31.9 g/dL Low 32.0-35.0 [facility] Comment on above: Performed By: #### L [id number] #### [facility] ([facility]) [address] [place] [address] Hematocrit (Bld) [Volume fraction] 37.9 % Normal 36.0-48.0 [facility] Comment on above: Performed By: #### L [id number] #### [facility] ([facility]) [address] [place] [address] Hemoglobin (Bld) [Mass/Vol] 12.1 g/dL Normal 12.0-15.0 [facility] Comment on above: Performed By: #### L [id number] #### [facility] ([facility]) [address] [place] [address] Immature granulocytes (Bld) [#/Vol] 0.04 10*3/uL Normal 0.00-0.20 [facility] Comment on above: Performed By: #### L [id number] #### [facility] ([facility]) [address] [place] [address] Immature granulocytes/100 WBC (Bld) 0.3 % Normal 0.0-1.0 [facility] Comment on above: Performed By: #### L [id number] #### [facility] ([facility]) [address] [place] [address] Lymphocytes (Bld) [#/Vol] 4.00 10*3/uL Normal 1.20-4.00 [facility] Comment on above: Performed By: #### L [id number] #### [facility] ([facility]) [address] [place] [address] Lymphocytes/100 WBC (Bld) 32.1 % Normal 20.0-45.0 [facility] Comment on above: Performed By: #### L [id number] #### [facility] ([facility]) [address] [place] [address] MCH (RBC) [Entitic mass] 28.1 pg Normal 27.0-33.0 [facility] Comment on above: Performed By: #### L [id number] #### [facility] ([facility]) [address] [place] [address] MCV (RBC) [Entitic vol] 87.9 fL Normal 82.0-98.0 [facility] Comment on above: Performed By: #### L [id number] #### [facility] ([facility]) [address] [place] [address] Monocytes (Bld) [#/Vol] 0.85 10*3/uL Normal 0.10-1.00 [facility] Comment on above: Performed By: #### L [id number] #### [facility] ([facility]) [address] [place] [address] Monocytes/100 WBC (Bld) 6.8 % Normal 5.0-12.0 [facility] Comment on above: Performed By: #### L [id number] #### [facility] ([facility]) [address] [place] [address] Neutrophils (Bld) [#/Vol] 7.02 10*3/uL Normal 1.60-7.60 [facility] Comment on above: Performed By: #### L [id number] #### [facility] ([facility]) [address] [place] [address] Neutrophils/100 WBC (Bld) 56.4 % Normal 40.0-72.0 [facility] Comment on above: Performed By: #### L [id number] #### [facility] ([facility]) [address] [place] [address] NRBC (PER 100 WBCS) BY AUTOMATED COUNT 0.0 % Normal 0 [facility] Comment on above: Performed By: #### L [id number] #### [facility] ([facility]) [address] [place] [address] PLATELETS (10*3/UL) IN BLOOD AUTOMATED COUNT 301 10*3/uL Normal 150-400 [facility] Comment on above: Performed By: #### L [id number] #### [facility] ([facility]) [address] [place] [address] RBC (Bld) [#/Vol] 4.31 10*6/uL Normal 3.80-5.00 [facility] Comment on above: Performed By: #### L [id number] #### [facility] ([facility]) [address] [place] [address] WBC (Bld) [#/Vol] 12.46 10*3/uL High 4.00-10.60 [facility] Comment on above: Performed By: #### L [id number] #### [facility] ([facility]) [address] [place] [address] 30on 07-07-2023 30 The patient is Moderately Stable - Low risk of patient condition declining or worsening The patient's goals for the shift include comfort The clinical goals for the shift include vss Normal [facility] 30 Problem: Cardiovascular - Adult Goal: Maintains [...] comfort lev (more content not included)... Normal [facility] BASIC METABOLIC PANELon 02- Anion gap [Moles/Vol] 12 mmol/L Normal 7-20 [facility] Comment on above: Performed By: #### L [id number] #### [facility] ([facility]) [address] [place] [address] Calcium [Mass/Vol] 9.2 mg/dL Normal 8.6-10.3 [facility] Comment on above: Performed By: #### L [id number] #### [facility] ([facility]) [address] [place] [address] Chloride [Moles/Vol] 97 mmol/L Low 98-107 [facility] Comment on above: Performed By: #### L [id number] #### [facility] ([facility]) [address] [place] [address] CO2 [Moles/Vol] 31 mmol/L Normal 21-31 [facility] Comment on above: Performed By: #### L [id number] #### [facility] ([facility]) [address] [place] [address] Creatinine [Mass/Vol] 1.06 mg/dL Normal 0.60-1.20 [facility] Comment on above: Performed By: #### L [id number] #### [facility] ([facility]) [address] [place] [address] GLOMERULAR FILTRATION RATE ML/MIN/1.73 SQ M.PREDICTED 59.4 mL/min/1.73m*2 Low >60.0 [facility] Comment on above: Result Comment: The [facility]???s estimated glomerular filtration rate (eGFR) will no [...] individuals. Performed By: #### L [id number] #### [facility] ([facility]) [address] [place] [address] Glucose [Mass/Vol] 119 mg/dL High 70-100 [facility] Comment on above: Performed By: #### L [id number] #### [facility] ([facility]) [address] [place] [address] Potassium [Moles/Vol] 4.6 mmol/L Normal 3.5-5.1 [facility] Comment on above: Performed By: #### L [id number] #### [facility] ([facility]) [address] [place] [address] Sodium [Moles/Vol] 135 mmol/L Low 136-145 [facility] Comment on above: Performed By: #### L [id number] #### [facility] ([facility]) [address] [place] [address] Urea nitrogen [Mass/Vol] 21 mg/dL Normal 7-25 [facility] Comment on above: Performed By: #### L [id number] #### [facility] ([facility]) [address] [place] [address] UREA NITROGEN/CREATININE (MASS RATIO) IN SER/PLAS 19.8 Normal [facility] Comment on above: Performed By: #### L [id number] #### [facility] ([facility]) [address] [place] [address] CBC WITH AUTO DIFFERENTIALon 07-07-2023 Basophils (Bld) [#/Vol] 0.05 10*3/uL Normal 0.00-0.20 [facility] Comment on above: Performed By: #### L [id number] #### [facility] ([facility]) [address] [place] [address] Basophils/100 WBC (Bld) 0.3 % Normal 0.0-1.0 [facility] Comment on above: Performed By: #### L [id number] #### [facility] ([facility]) [address] [place] [address] Eosinophils (Bld) [#/Vol] 0.38 10*3/uL Normal 0.00-0.50 [facility] Comment on above: Performed By: #### L [id number] #### [facility] ([facility]) [address] [place] [address] Eosinophils/100 WBC (Bld) 2.5 % Normal 0.0-6.0 [facility] Comment on above: Performed By: #### L [id number] #### [facility] ([facility]) [address] [place] [address] Erythrocyte distribution width (RBC) [Ratio] 15.5 % High 11.5-15.0 [facility] Comment on above: Performed By: #### L [id number] #### [facility] ([facility]) [address] [place] [address] ERYTHROCYTE MEAN CORPUSCULAR HEMOGLOBIN CONCENTRATION (G/DL) BY AUTOMATED 32.0 g/dL Normal 32.0-35.0 [facility] Comment on above: Performed By: #### L [id number] #### [facility] ([facility]) [address] [place] [address] Hematocrit (Bld) [Volume fraction] 38.8 % Normal 36.0-48.0 [facility] Comment on above: Performed By: #### L [id number] #### [facility] ([facility]) [address] [place] [address] Hemoglobin (Bld) [Mass/Vol] 12.4 g/dL Normal 12.0-15.0 [facility] Comment on above: Performed By: #### L [id number] #### [facility] ([facility]) [address] [facility] [place] [address] Immature granulocytes (Bld) [#/Vol] 0.05 10*3/uL Normal 0.00-0.20 [facility] Comment on above: Performed By: #### L [id number] #### [facility] ([facility]) [address] [place] [address] Immature granulocytes/100 WBC (Bld) 0.3 % Normal 0.0-1.0 [facility] Comment on above: Performed By: #### L [id number] #### [facility] ([facility]) [address] [place] [address] Lymphocytes (Bld) [#/Vol] 3.99 10*3/uL Normal 1.20-4.00 [facility] Comment on above: Performed By: #### L [id number] #### [facility] ([facility]) [address] [place] [address] Lymphocytes/100 WBC (Bld) 26.5 % Normal 20.0-45.0 [facility] Comment on above: Performed By: #### L [id number] #### [facility] ([facility]) [address] [place] [address] MCH (RBC) [Entitic mass] 27.9 pg Normal 27.0-33.0 [facility] Comment on above: Performed By: #### L [id number] #### [facility] ([facility]) [address] [place] [address] MCV (RBC) [Entitic vol] 87.4 fL Normal 82.0-98.0 [facility] Comment on above: Performed By: #### L [id number] #### [facility] ([facility]) [address] [place] [address] Monocytes (Bld) [#/Vol] 1.25 10*3/uL High 0.10-1.00 [facility] Comment on above: Performed By: #### L [id number] #### [facility] ([facility]) [address] [place] [address] Monocytes/100 WBC (Bld) 8.3 % Normal 5.0-12.0 [facility] Comment on above: Performed By: #### L [id number] #### [facility] ([facility]) [address] [place] [address] Neutrophils (Bld) [#/Vol] 9.31 10*3/uL High 1.60-7.60 [facility] Comment on above: Performed By: #### L [id number] #### [facility] ([facility]) [address] [place] [address] Neutrophils/100 WBC (Bld) 62.1 % Normal 40.0-72.0 [facility] Comment on above: Performed By: #### L [id number] #### [facility] ([facility]) [address] [place] [address] NRBC (PER 100 WBCS) BY AUTOMATED COUNT 0.0 % Normal 0 [facility] Comment on above: Performed By: #### L [id number] #### [facility] ([facility]) [address] [place] [address] PLATELETS (10*3/UL) IN BLOOD AUTOMATED COUNT 300 10*3/uL Normal 150-400 [facility] Comment on above: Performed By: #### L [id number] #### [facility] ([facility]) [address] [place] [address] RBC (Bld) [#/Vol] 4.44 10*6/uL Normal 3.80-5.00 [facility] Comment on above: Performed By: #### L [id number] #### [facility] ([facility]) [address] [place] [address] WBC (Bld) [#/Vol] 15.03 10*3/uL High 4.00-10.60 [facility] Comment on above: Performed By: #### L [id number] #### [facility] ([facility]) [address] [place] [address] MAGNESIUMon 07-07-2023 Magnesium [Mass/Vol] 2.3 mg/dL Normal 1.9-2.7 [facility] Comment on above: Performed By: #### L [id number] #### [facility] ([facility]) [address] [place] [address] 30on 07-06-2023 30 Daily Case Managemen t [...] of Consultation Consultation and Management 07/06/23 1050 [facility] 30 The patient is Moderately [...] monitored and maintained or improved Outcome: Progressing [facility] 30 The patient is Moderately Stable - Low risk of patient condition declining or worsening The patient's goals for the shift include comfort The clinical goals for the shift include VSS [facility] 30 The patient is Moderately Stable - Low risk of patient condition declining or worsening The patient's goals for the shift include comfort The clinical goals for the shift include VSS [facility] APTTon 07-06-2023 ACTIVATED PARTIAL THROMBOPLASTIN TIME IN PPP BY COAGULATION ASSAY 25.3 Seconds Normal 25.0-35.0 [facility] Comment on above: Result Comment: Clin ical significance of the APTT is questionable in the presence of heparin. Performed By: #### L [id number] #### [facility] ([facility]) [address] [place] [address] B-TYPE NATRIURETIC PEPTIDEon 07-06-2023 Natriuretic peptide B (Bld) [Mass/Vol] 721 pg/mL High 0-100 [facility] Comment on above: Performed By: #### L [id number] #### [facility] ([facility]) [address] [facility] [place] [address] BLOOD CULTUREon 07-06-2023 Bacteria identified Cx Nom (Bld) No growth at 5 days Normal [facility] Comment on above: Performed By: #### L [id number] ####[facility] ([facility])[address] [place] [address] Order Comment: From a different site than #1. Performed By: #### L [id number] #### [facility] ([facility]) [address] [place] [address] CBC WITH AUTO DIFFERENTIALon 07-06-2023 Basophils (Bld) [#/Vol] 0.03 10*3/uL Normal 0.00-0.20 [facility] Comment on above: Performed By: #### L [id number] ####[facility] ([facility])[address] [place] [address] Basophils/100 WBC (Bld) 0.2 % Normal 0.0-1.0 [facility] Comment on above: Performed By: #### L [id number] ####[facility] ([facility])[address] [place] [address] Eosinophils (Bld) [#/Vol] 0.11 10*3/uL Normal 0.00-0.50 [facility] Comment on above: Performed By: #### L [id number] ####[facility] ([facility])[address] [place] [address] Eosinophils/100 WBC (Bld) 0.8 % Normal 0.0-6.0 [facility] Comment on above: Performed By: #### L [id number] ####[facility] ([facility])[address] [place] [address] Erythrocyte distribution width (RBC) [Ratio] 15.1 % High 11.5-15.0 [facility] Comment on above: Performed By: #### L [id number] ####[facility] ([facility])[address] [place] [address] ERYTHROCYTE MEAN CORPUSCULAR HEMOGLOBIN CONCENTRATION (G/DL) BY AUTOMATED 32.3 g/dL Normal 32.0-35.0 [facility] Comment on above: Performed By: #### L [id number] ####[facility] ([facility])[address] [place] [address] Hematocrit (Bld) [Volume fraction] 39.0 % Normal 36.0-48.0 [facility] Comment on above: Performed By: #### L [id number] ####[facility] ([facility])[address] [place] [address] Hemoglobin (Bld) [Mass/Vol] 12.6 g/dL Normal 12.0-15.0 [facility] Comment on above: Performed By: #### L [id number] ####[facility] ([facility])[address] [place] [address] Immature granulocytes (Bld) [#/Vol] 0.04 10*3/uL Normal 0.00-0.20 [facility] Comment on above: Performed By: #### L [id number] ####[facility] ([facility])[address] [place] [address] Immature granulocytes/100 WBC (Bld) 0.3 % Normal 0.0-1.0 [facility] Comment on above: Performed By: #### L [id number] ####[facility] ([facility])[address] [place] [address] Lymphocytes (Bld) [#/Vol] 2.75 10*3/uL Normal 1.20-4.00 [facility] Comment on above: Performed By: #### L [id number] ####[facility] ([facility])[address] [place] [address] Lymphocytes/100 WBC (Bld) 19.1 % Low 20.0-45.0 [facility] Comment on above: Performed By: #### L [id number] ####[facility] ([facility])[address] [place] [address] MCH (RBC) [Entitic mass] 27.9 pg Normal 27.0-33.0 [facility] Comment on above: Performed By: #### L [id number] ####[facility] ([facility])[address] [place] [address] MCV (RBC) [Entitic vol] 86.5 fL Normal 82.0-98.0 [facility] Comment on above: Performed By: #### L [id number] ####[facility] ([facility])[address] [place] [address] Monocytes (Bld) [#/Vol] 1.31 10*3/uL High 0.10-1.00 [facility] Comment on above: Performed By: #### L [id number] ####[facility] ([facility])[address] [place] [address] Monocytes/100 WBC (Bld) 9.1 % Normal 5.0-12.0 [facility] Comment on above: Performed By: #### L [id number] ####[facility] ([facility])[address] [place] [address] Neutrophils (Bld) [#/Vol] 10.18 10*3/uL High 1.60-7.60 [facility] Comment on above: Performed By: #### L [id number] ####[facility] ([facility])[address] [place] [address] Neutrophils/100 WBC (Bld) 70.5 % Normal 40.0-72.0 [facility] Comment on above: Performed By: #### L [id number] ####[facility] ([facility])[address] [place] [address] NRBC (PER 100 WBCS) BY AUTOMATED COUNT 0.0 % Normal 0 [facility] Comment on above: Performed By: #### L [id number] ####[facility] ([facility])[address] [place] [address] PLATELETS (10*3/UL) IN BLOOD AUTOMATED COUNT 321 10*3/uL Normal 150-400 [facility] Comment on above: Performed By: #### L [id number] ####[facility] ([facility])[address] [place] [address] RBC (Bld) [#/Vol] 4.51 10*6/uL Normal 3.80-5.00 [facility] Comment on above: Performed By: #### L [id number] ####[facility] ([facility])[address] [place] [address] WBC (Bld) [#/Vol] 14.42 10*3/uL High 4.00-10.60 [facility] Comment on above: Performed By: #### L [id number] ####[facility] ([facility])[address] [place] [address] CKon 07-06-2023 CREATINE KINASE (U/L) IN SER/PLAS 36.0 U/L Normal 30.0-223.0 [facility] Comment on above: Performed By: #### L [id number] #### [facility] ([facility]) [address] [place], [place] [id number] COMPREHENSIVE METABOLIC PANE Pollo 07-06-2023 Albumin [Mass/Vol] 4.6 g/dL Normal 3.5-5.7 [facility] Comment on above: Performed By: #### L [id number] #### [facility] ([facility]AKER) [address] [place] [address] ALP [Catalytic activity/Vol] 47 U/L Normal 34-104 [facility] Comment on above: Performed By: #### L [id number] #### [facility] ([facility]) [address] [place] [address] ALT [Catalytic activity/Vol] 13 U/L Normal 7-52 [facility] Comment on above: Performed By: #### L [id number] #### [facility] ([facility]) [address] [place] [address] Anion gap [Moles/Vol] 14 mmol/L Normal 7-20 [facility] Comment on above: Performed By: #### L [id number] #### [facility] ([facility]) [address] [place] [address] AST [Catalytic activity/Vol] 17 U/L Normal 13-39 [facility] Comment on above: Performed By: #### L [id number] #### [facility] ([facility]) [address] [place] [address] Bilirubin [Mass/Vol] 0.5 mg/dL Normal 0.3-1.0 [facility] Comment on above: Performed By: #### L [id number] #### [facility] ([facility]) [address] [place] [address] Calcium [Mass/Vol] 8.9 mg/dL Normal 8.6-10.3 [facility] Comment on above: Performed By: #### L [id number] #### [facility] ([facility]) [address] [place] [address] Chloride [Moles/Vol] 98 mmol/L Normal 98-107 [facility] Comment on above: Performed By: #### L [id number] #### [facility] ([facility]) [address] [place] [address] CO2 [Moles/Vol] 28 mmol/L Normal 21-31 [facility] Comment on above: Performed By: #### L [id number] #### [facility] ([facility]) [address] [place] [address] Creatinine [Mass/Vol] 1.23 mg/dL High 0.60-1.20 [facility] Comment on above: Performed By: #### L [id number] #### [facility] ([facility]) [address] [place] [address] GLOMERULAR FILTRATION RATE ML/MIN/1.73 SQ M.PREDICTED 49.7 mL/min/1.73m*2 Low >60.0 [facility] Comment on above: Result Comment: [facility]???s estimated glomerular filtration rate (eGFR) will no [...] individuals. Performed By: #### L [id number] #### [facility] ([facility]) [address] [place] [address] Glucose [Mass/Vol] 119 mg/dL High 70-100 [facility] Comment on above: Performed By: #### L [id number] #### [facility] ([facility]) [address] [place] [address] Potassium [Moles/Vol] 4.6 mmol/L Normal 3.5-5.1 [facility] Comment on above: Performed By: #### L [id number] #### [facility] ([facility]) [address] [place] [address] Protein [Mass/Vol] 6.8 g/dL Normal 6.0-8.3 [facility] Comment on above: Performed By: #### L [id number] #### [facility] ([facility]) [address] [place] [address] Sodium [Moles/Vol] 135 mmol/L Low 136-145 [facility] Comment on above: Performed By: #### L [id number] #### [facility] ([facility]) [address] [place] [address] Urea nitrogen [Mass/Vol] 23 mg/dL Normal 7-25 [facility] Comment on above: Performed By: #### L [id number] #### [facility] ([facility]) [address] [place] [address] UREA NITROGEN/CREATININE (MASS RATIO) IN SER/PLAS 18.7 Normal [facility] Comment on above: Performed By: #### L [id number] #### [facility] ([facility]) [address] [place] [address] CONSULTon 07-06-2023 CONSULT - Attestation signed by [...] -- -- 7 (more content not included)... [facility] Clinical Summary[facility] 2023 ED Clinical Summary [place] [id number] ED Clinical Summary Person Information Name: VIVIAN VANN/[place] Age: 63 Years : 1960 Sex: Female Language: [place] PCP: Екатерина Robert MD Marital Status: Phone: [...] 07/05/2023 22:16:25 07/05/2023 22:16:25 07/05/2023 22:16:25 ADDRESS: [facility] [id number] PHYS DOC NOTES: MEDICAL INFORMATION: Prescriptions Given: [...] 3:Tobacco abuse; 4:CHF (congestive heart failure) Normal [facility] ED Patient Education Noteon 07-06-2023 ED Patient Education Note Normal [facility] ED Patient Summaryon 024 ED Patient Summary [place] [id number] Patient Discharge Instructions Person Information Name: VIVIAN VANN Age: 63 Years Arrival Date: 07/05/2023 15:01:40 Discharge Diagnosis: 1:Atrial fibrillation with slow ventricular response; 2:Elevated troponin; 3:Tobacco abuse; 4:CHF (congestive heart failure) Primary Care Physician: Екатерина Robert MD Provider Information Primary Provider: Arsenio Martin DO Advanced Flame Planer:None The exam and treatment you received in the Emergency Department were for an urgent problem and are not intended as complete care. It is important that you follow up with a doctor, nurse practitioner, or physician?s animal assistant for ongoing care. If your symptoms [...] opioids can be used to help relieve iiaokwda-kk-fletqm pain and are often prescribed following a [...] be struggling with addiction, tell your health reservoir caretaker and ask for guidance or call [facility]?S National Helpline at [phone]-GAFZ. p Source: [place] Department of Health and Human Services/Center for Disease Control & Preve (more content not included)... Normal [facility] ETHANOLon 07-06-2023 ETHANOL (MG/DL) IN SER/PLAS <10 Normal [facility] Comment on above: Performed By: #### L [id number] #### [facility] ([facility]) [address] [place] [address] ETHANOL CALCULATED (%) Normal Un [facility] Comment on above: Performed By: #### L [id number] #### [facility] ([facility]) [address] [place] [address] HEMOGLOBIN A1Con 07-06-2023 Glucose [Mass/Vol] 148 mg/dL Normal [facility] Comment on above: Performed By: #### L [id number] #### [facility] ([facility]) [address] [place] [address] HbA1c (Bld) [Mass fraction] 6.8 % High 4.0-6.0 [facility] Comment on above: Performed By: #### L [id number] #### [facility] ([facility]) [address] [place] [address] LACTIC ACID WITH 4 HOUR REFL EXon 07-06-2023 LACTATE (MMOL/L) IN SER/PLAS 1.8 mmol/L Normal 0.5-2.2 [facility] Comment on above: Performed By: #### L [id number] #### [facility] ([facility]) [address] [place] [address] LIPID PANELon 07-06-2023 CHOL/HDL 3.0 mg/dL Normal [facility] Comment on above: Performed By: #### L [id number] #### [facility] ([facility]) [address] [place] [address] Cholesterol [Mass/Vol] 143 mg/dL Normal 120-200 Un [facility] Comment on above: Performed By: #### L [id number] #### [facility] ([facility]ER) [address] [place] [address] Magnesium [Mass/Vol] 159 mg/dL High 40-149 [facility] Comment on above: Result Comment: TRIG LYCERIDE REFERENCE RANGE: 20 YEARS AND OLDER CARDIOVASCULAR RISK LESS THAN 150 mg/dL LOW RISK 150 TO 199 mg/dL BORDERLINE RISK 200 mg/dL AND GREATER HIGH RISK Performed By: #### L [id number] #### [facility] ([facility]) [address] [place] [address] Magnesium [Mass/Vol] 63 mg/dL Normal 0-160 [facility] Comment on above: Performed By: #### L [id number] #### [facility] ([facility]) [address] [place] [address] Magnesium [Mass/Vol] 48 mg/dL Normal 23-92 [facility] Comment on above: Performed By: #### L [id number] #### [facility] ([facility]) [address] [place] [address] NON HDL CHOL. (LDL+VLDL) 95 Normal [facility] Comment on above: Performed By: #### L [id number] #### [facility] ([facility]) [address] [place] [address] TOTAL VLDL-C 32 mg/dL Normal 0-40 [facility] Comment on above: Performed By: #### L [id number] #### [facility] ([facility]) [address] [place] [address] MAGNESIUMon 07-06-2023 Magnesium [Mass/Vol] 2.2 mg/dL Normal 1.9-2.7 [facility] Comment on above: Performed By: #### L [id number] #### [facility] ([facility]) [address] [facility] [place] [address] PHOSPHORUSon 07-06-2023 Magnesium [Mass/Vol] 5.2 mg/dL High 2.5-5.0 [facility] Comment on above: Performed By: #### L [id number] #### [facility] ([facility]ER) [address] [place] [address] PROTIME-INRon 07-06-2023 INR IN PPP BY COAGULATION ASSAY 1.00 Normal 0.90-1.10 [facility] Comment on above: Result Comment: [facility] P RECOMMENDED INR FOR WARFARIN THERAPY CONDITION [...] 1995;108:[id number]-246S. Performed By: #### L [id number] #### [facility] ([facility]ER) [address] [place] [address] PROTHROMBIN TIME (PT) IN PPP BY COAGULATION ASSAY 13.2 Seconds Normal 12.3-14.8 [facility] Comment on above: Performed By: #### L [id number] #### [facility] ([facility]ER) [address] [place] [address] TOXICOLOGY PANEL URINEon AMPHETAMINE+METHAMPHET AMINE SCREEN (PRESENCE) IN URINE Negative Normal Negative [facility] Comment on above: Performed By: #### L [id number] #### [facility] ([facility]ER) [address] [place] [address] BARBITURATES PRESENCE IN URINE BY SCREEN METHOD Negative Normal Negative [facility] Comment on above: Performed By: #### L [id number] #### [facility] ([facility]) [address] [place] [address] Benzodiazepines Ql (U) Positive Abnormal Negative Un [facility] Comment on above: Performed By: #### L [id number] #### [facility] ([facility]) [address] [place] [address] CANNABINOID (PRESENCE) IN URINE BY SCREEN METHOD Positive Abnormal Negative [facility] Comment on above: Performed By: #### L [id number] #### [facility] ([facility]) [address] [place] [address] Cocaine Ql (U) Negative Normal Negative [facility] Comment on above: Performed By: #### L [id number] #### [facility] ([facility]) [address] [place] [address] METHADONE (PRESENCE) IN URINE BY SCREEN METHOD Negative Normal Negative [facility] Comment on above: Performed By: #### L [id number] #### [facility] ([facility]AKER) [address] [place] [address] OPIATES (PRESENCE) IN URINE BY SCREEN METHOD Negative Normal Negative [facility] Comment on above: Performed By: #### L [id number] #### [facility] ([facility]ER) [address] [place] [address] PHENCYCLIDINE PRESENCE IN URINE BY SCREEN METHOD Negative Normal Negative [facility] Comment on above: Performed By: #### L [id number] #### [facility] ([facility]) [address] [place] [address] Propoxyphene Screen Ql (U) Negative Normal Negative [facility] Comment on above: Performed By: #### L [id number] #### [facility] ([facility]) [address] [place] [address] TRICYCLIC ANTIDEPRESSANTS (PRESENCE) IN URINE Positive Abnormal Negative [facility] Comment on above: Performed By: #### L [id number] #### [facility] ([facility]) [address] [place] [address] TROPONIN Ion 07-06-2023 Troponin I.cardiac [Mass/Vol] 0.12 ng/mL Critically high 0.00-0.04 [facility] Comment on above: Result Comment: M-NC EVIOUS CRITICAL RESULT Previous result verified on 07/06/2023 1236 on specimen/case [id number] called with component Troponin I for procedure Troponin I with value 0.11 ng/mL. Performed By: #### L [id number] #### [facility] ([facility]) [address] [place] [address] Troponin I.cardiac [Mass/Vol] 0.11 ng/mL Critically high 0.00-0.04 [facility] Comment on above: Result Comment: M-NC EVIOUS CRITICAL RESULT Previous result verified on 07/06/2023 0444 on specimen/case [id number] called with component Troponin I for procedure Troponin I with value 0.12 ng/mL. Performed By: #### L [id number] #### [facility] ([facility]) [address] [place] [address] Troponin I.cardiac [Mass/Vol] 0.12 ng/mL Critically high 0.00-0.04 [facility] Comment on above: Result Comment: M-CR ITICAL RESULT(S) REVIEWED, CALLED TO AND READ BACK BY PRIYANKA LEOS RN AT 0442 M-TROPONIN INITIAL CRITICAL HIGH; RESPUN AND RETESTED Performed By: #### L [id number] #### [facility] ([facility]) [address] [place] [address] TSH3 REFLEX TO FT4on 024 THYROTROPIN (MIU/L) IN SER/PLAS BY DETECTION LIMIT <= 0.05 MIU/L 4.25 mIU/L Normal 0.34-5.60 [facility] Comment on above: Performed By: #### L [id number] #### [facility] ([facility]) [address] [place] [address] Transfer Documentson 024 Transfer Documents [id number]# 1.00TIFF Normal [facility] URINALYSIS WITH REFLEX CULTU REon 07-06-2023 BILIRUBIN, TOTAL PRESENCE IN URINE Negative Normal Negative [facility] Comment on above: Order Comment: Micro scopics not performed on urines with negative chemical reactions unless requested on original order. Performed By: #### L [id number] #### [facility] ([facility]) [address] [place] [address] Clarity (U) Clear Normal Clear [facility] Comment on above: Order Comment: Micro scopics not performed on urines with negative chemical reactions unless requested on original order. Performed By: #### L [id number] #### [facility] ([facility]) [address] [place] [address] Color (U) Yellow Normal Yellow [facility] Comment on above: Order Comment: Micro scopics not performed on urines with negative chemical reactions unless requested on original order. Performed By: #### L [id number] #### [facility] ([facility]) [address] [place] [address] Glucose (U) [Mass/Vol] mg/dL Abnormal Negative [facility] Comment on above: Order Comment: Micro scopics not performed on urines with negative chemical reactions unless requested on original order. Performed By: #### L [id number] #### [facility] ([facility]) [address] [place] [address] HEMOGLOBIN PRESENCE IN URINE Negative Normal Negative [facility] Comment on above: Order Comment: Micro scopics not performed on urines with negative chemical reactions unless requested on original order. Performed By: #### L [id number] #### [facility] ([facility]) [address] [place] [address] Ketones Ql (U) Negative Normal Negative [facility] Comment on above: Order Comment: Micro scopics not performed on urines with negative chemical reactions unless requested on original order. Performed By: #### L [id number] #### [facility] ([facility]) [address] [place] [address] LEUKOCYTE ESTERASE PRESENCE IN URINE BY TEST STRIP Negative Normal Negative [facility] Comment on above: Order Comment: Micro scopics not performed on urines with negative chemical reactions unless requested on original order. Performed By: #### L [id number] #### [facility] ([facility]) [address] [place] [address] NITRITE PRESENCE IN URINE Negative Normal Negative [facility] Comment on above: Order Comment: Micro scopics not performed on urines with negative chemical reactions unless requested on original order. Performed By: #### L [id number] #### [facility] ([facility]) [address] [place] [address] pH (U) 6.0 [pH] Normal 5.0-8.0 [facility] Comment on above: Order Comment: Micro scopics not performed on urines with negative chemical reactions unless requested on original order. Performed By: #### L [id number] #### [facility] ([facility]) [address] [place] [address] Protein (U) [Mass/Vol] Negative Normal Negative [facility] Comment on above: Order Comment: Micro scopics not performed on urines with negative chemical reactions unless requested on original order. Performed By: #### L [id number] #### [facility] ([facility]) [address] [place] [address] Specific gravity (U) [Rel density] 1.013 Low 1.015-1.020 [facility] Comment on above: Order Comment: Micro scopics not performed on urines with negative chemical reactions unless requested on original order. Performed By: #### L [id number] #### [facility] ([facility]) [address] [place] [address] BILIRUBIN, TOTAL PRESENCE IN URINE Negative Normal Negative [facility] Comment on above: Order Comment: Micro scopics not performed on urines with negative chemical reactions unless requested on original order. Performed By: #### L [id number] #### [facility] ([facility]) [address] [place] [address] Clarity (U) Clear Normal Clear [facility] Comment on above: Order Comment: Micro scopics not performed on urines with negative chemical reactions unless requested on original order. Performed By: #### L [id number] #### [facility] ([facility]) [address] [place] [address] Color (U) Yellow Normal Yellow [facility] Comment on above: Order Comment: Micro scopics not performed on urines with negative chemical reactions unless requested on original order. Performed By: #### L [id number] #### [facility] ([facility]) [address] [place] [address] Glucose (U) [Mass/Vol] mg/dL Abnormal Negative [facility] Comment on above: Order Comment: Micro scopics not performed on urines with negative chemical reactions unless requested on original order. Performed By: #### L [id number] #### [facility] ([facility]) [address] [place] [address] HEMOGLOBIN PRESENCE IN URINE Negative Normal Negative [facility] Comment on above: Order Comment: Micro scopics not performed on urines with negative chemical reactions unless requested on original order. Performed By: #### L [id number] #### [facility] ([facility]) [address] [place] [address] Ketones Ql (U) Negative Normal Negative [facility] Comment on above: Order Comment: Micro scopics not performed on urines with negative chemical reactions unless requested on original order. Performed By: #### L [id number] #### [facility] ([facility]) [address] [place] [address] LEUKOCYTE ESTERASE PRESENCE IN URINE BY TEST STRIP Negative Normal Negative [facility] Comment on above: Order Comment: Micro scopics not performed on urines with negative chemical reactions unless requested on original order. Performed By: #### L [id number] #### [facility] ([facility]) [address] [place] [address] NITRITE PRESENCE IN URINE Negative Normal Negative [facility] Comment on above: Order Comment: Micro scopics not performed on urines with negative chemical reactions unless requested on original order. Performed By: #### L [id number] #### [facility] ([facility]) [address] [place] [address] pH (U) 6.0 [pH] Normal 5.0-8.0 [facility] Comment on above: Order Comment: Micro scopics not performed on urines with negative chemical reactions unless requested on original order. Performed By: #### L [id number] #### [facility] ([facility]) [address] [place] [address] Protein (U) [Mass/Vol] Negative Normal Negative [facility] Comment on above: Order Comment: Micro scopics not performed on urines with negative chemical reactions unless requested on original order. Performed By: #### L [id number] #### [facility] ([facility]) [address] [facility] [place] [address] Specific gravity (U) [Rel density] 1.017 Normal 1.015-1.020 [facility] Comment on above: Order Comment: Micro scopics not performed on urines with negative chemical reactions unless requested on original order. Performed By: #### L [id number] #### [facility] ([facility]) [address] [place] [address] BMPon 07-05-2023 Anion gap [Moles/Vol] 15 mmol/L Normal 6-[address] [facility] Comment on above: Performed By: #### 1 [id number], 6235899, 13384745, 52173106, 6091331, 31935855, 8918493, 6385636, 4410584, 8315260 ####[facility] [address] [place] [address] BUN/Creat Ratio 15 No Units Normal 10-20 [facility] Comment on above: Performed By: #### 1 8886835, 7479321, 38091425, 26507699, 3628626, 52278792, 3454518, 5453221, 4872053, 3078809 ####[facility] [address] [place] [address] Calcium [Mass/Vol] 10.1 mg/dL Normal 8.9-11.1 [facility] Comment on above: Performed By: #### 1 4421079, 5303099, 11793248, 01304473, 5140376, 61001459, 7311168, 0116148, 3580999, 4797395 ####[facility] [address] [place] [address] Chloride [Moles/Vol] 96 mmol/L Low 101-111 [facility] Comment on above: Performed By: #### 1 5781878, 6194894, 09578068, 79107124, 6639665, 80669909, 0368163, 1007041, 6551550, 1811914 ####[facility] [address] [place] [address] CO2 [Moles/Vol] 32 mmol/L High 21-31 [facility] Comment on above: Performed By: #### 1 6708495, 4665670, 02333346, 53802092, 0874257, 27149943, 4338394, 5192229, 5984260, 7022954 ####[facility] [address] [place] [address] Creatinine [Mass/Vol] 1.5 mg/dL High 0.5-1.[address] [facility] Comment on above: Performed By: #### 1 1359505, 7425738, 00450898, 67379152, 6746797, 62649784, 1912117, 2301156, 2598861, 8538930 ####[facility] [address] [place] [address] Glucose [Mass/Vol] 147 mg/dL Normal 55-199 [facility] Comment on above: Performed By: #### 1 7880175, 6961480, 73992698, 55001193, 8956005, 77427595, 7665192, 4605411, 4513049, 5499714 ####[facility] [address] [place] [address] Potassium [Moles/Vol] 5.1 mmol/L Normal 3.5-5.[address] [facility] Comment on above: Performed By: #### 1 9466612, 7728091, 81004822, 15852496, 5266292, 99844580, 6780074, 9281593, 1973429, 4858958 ####[facility] [address] [place] [address] Sodium [Moles/Vol] 138 mmol/L Normal 135-145 [facility] Comment on above: Performed By: #### 1 6176862, 8425953, 99237761, 06839729, 2421067, 64860467, 9636494, 0284515, 6481322, 9178382 ####[place] [address] [place] [address] Urea nitrogen [Mass/Vol] 22 mg/dL High 5-21 [facility] Comment on above: Performed By: #### 1 3519306, 5274709, 20750218, 60056314, 7113856, 71022422, 4639165, 7828274, 9459370, 1656313 ####[address] [address] BNPon 07-05-2023 Natriuretic peptide B (Bld) [Mass/Vol] 508 pg/mL High 5-80 [facility] Comment on above: Performed By: #### 1 1075811, 7101033, 77882581, 31404147, 3844500, 86956053, 6933785, 5396878, 6834320, 4142981 ####[address] [address] CBC w/ Auto Diffon 4 Basophil Absolute 0.1 E9/L Normal 0.0-0.2 [facility] Comment on above: Performed By: #### 1 5667618, 4048863, 14396002, 37722140, 8978460, 88840105, 7701190, 2462888, 4637687, 6844555 ####[facility] [address] [place] [address] Basophils/100 WBC (Bld) 0.7 % Normal 0.0-2.0 [facility] Comment on above: Performed By: #### 1 3523328, 4822509, 83033999, 27647428, 8477576, 42682239, 8016181, 6614828, 0894380, 9511894 ####[facility] [address] [place] [address] Eos Absolute 0.4 E9/L Normal 0.0-0.5 [facility] Comment on above: Performed By: #### 1 5137108, 4622581, 19432851, 57954782, 3217512, 39736787, 7109397, 5698367, 5419585, 4466404 ####[place] [address] [place] [id number] Eosinophils/100 WBC (Bld) 3.7 % Normal 0.0-8.0 [facility] Comment on above: Performed By: #### 1 3585211, 6981317, 23442365, 80347708, 8479816, 52838163, 7101860, 1478182, 6548759, 5475494 ####[place] [address] Erythrocyte distribution width (RBC) [Ratio] 16.8 % High 10.9-14.2 [facility] Comment on above: Performed By: #### 1 8276367, 7123423, 48018567, 15369828, 6412965, 32915523, 8166162, 5900349, 2589721, 8262842 ####[place] [address] [place] [address]2357 Hematocrit (Bld) [Volume fraction] 46.0 % Normal 34.0-46.0 [facility] Comment on above: Performed By: #### 1 2104269, 0973836, 93806276, 05463497, 2365588, 50016566, 3648884, 0534632, 9747353, 3075795 ####[address] [address] Hemoglobin (Bld) [Mass/Vol] 15.1 g/dL Normal 12.0-16.0 [facility] Comment on above: Performed By: #### 1 2316490, 6183351, 73046992, 93402655, 6403180, 64462322, 6722044, 4372646, 5906642, 3663036 ####[facility] [address] [place] [address] Lymph Absolute 3.6 E9/L Normal 1.0-4.0 [facility] Comment on above: Performed By: #### 1 2852744, 6337339, 97877466, 28703000, 9034138, 40142534, 5069231, 8286170, 4002648, 7866498 ####[place] [address] [place] [address] Lymphocytes/100 WBC (Bld) 30.9 % Normal 14.0-50.0 [facility] Comment on above: Performed By: #### 1 4145450, 9409324, 91541629, 39125167, 8139070, 89056444, 5427061, 3657201, 5780621, 2449383 ####[facility] [address] [place] [address] MCH (RBC) [Entitic mass] 27.6 pg Normal 27.0-34.0 [facility] Comment on above: Performed By: #### 1 2321813, 7196269, 20871044, 38037526, 5662167, 97099684, 4763712, 4922076, 9492729, 0931674 ####[facility] [address] [place] [address] MCHC (RBC) [Mass/Vol] 32.8 g/dL Normal 31.4-36.[address] [facility] Comment on above: Performed By: #### 1 6001749, 5274699, 00983805, 19161607, 2234908, 83607773, 6689925, 0285609, 8579765, 7064360 ####[place] [address] [place] [address] MCV (RBC) [Entitic vol] 84.3 fL Normal 80.0-100.0 [facility] Comment on above: Performed By: #### 1 8743208, 9437552, 44387043, 34744384, 6310146, 53996859, 3279260, 0288522, 9627954, 7295916 ####[facility] [address] [place] [address] [place] Absolute 0.9 E9/L Normal 0.2-1.0 [facility] Comment on above: Performed By: #### 1 8708058, 6264478, 82555503, 70311517, 6795967, 36076999, 2546802, 2616047, 4932709, 0054392 ####[facility] [address] [place] [address] Monocytes/100 WBC (Bld) 8.1 % Normal 4.0-14.0 [facility] Comment on above: Performed By: #### 1 0012915, 3559213, 03702416, 84533254, 1014747, 54426591, 5715073, 5949239, 0117235, 3004663 ####[facility] [address] [place] [address] Neutro Absolute 6.6 E9/L Normal 2.0-7.5 [facility] Comment on above: Performed By: #### 1 1988668, 7260172, 93114900, 75204547, 7629644, 60498798, 7095629, 5052464, 3530891, 3794361 ####[facility] [address] [place] [address] Neutro Auto 56.6 % Normal 36.0-75.0 [facility] Comment on above: Performed By: #### 1 7588615, 3458735, 77018223, 42447434, 5162668, 59448013, 7402067, 9454453, 8366536, 7358711 ####[facility] [address] [place] [address] Platelet 431.0 E9/L Normal 150.0-500.0 [facility] Comment on above: Performed By: #### 1 0312373, 7278562, 45896728, 05058104, 8872475, 51392901, 4135110, 1934980, 1209635, 4453448 ####[facility] [address] [place] [address] Platelet mean volume (Bld) [Entitic vol] 8.5 fL Normal 6.4-10.8 [facility] Comment on above: Performed By: #### 1 0035250, 8234410, 61665477, 51920140, 1955222, 55670955, 7591058, 0904892, 0926123, 8500515 ####[facility] [address] [place] [address] RBC 5.5 E12/L Normal 4.3-5.9 [facility] Comment on above: Performed By: #### 1 0482321, 7020102, 52491548, 59942871, 7102399, 75362911, 7738214, 0999402, 9018027, 9024108 ####[facility] [address] [place] [address] WBC 11.6 E9/L High 4.0-11.0 [facility] Comment on above: Performed By: #### 1 0119659, 1929709, 63491005, 57900410, 0768043, 26593983, 6907566, 4390987, 0127162, 5170495 ####[facility] [address] [place] [address] CHEMISTRYOrdered By: SYSTEM SYSTEM on 07-05-2023 Troponin 51.10 pg/mL Invalid Interpretation Code 10.10 - 27.10 pg/mL Remisol Chem Comment on above: Result Comment: Crit ical Result I_TnIHS:51.1 Called to and read back by: DR. JUAN MAS at: 07/05/2023 21:51:38 by:[id number] Critical Result Verified by Previous Result Interpretive Data: T he 95% CI (Confidence Interval) PPV (Positive Predictive Value) for myocardial infarction in females is 38 pg/mL, in males 51 pg/mL. The results should be used in conjunction with clinical conditions of myocardial infarction. (Access High Sensitivity Troponin I Instructions For Use, [employer], December 2017) Troponin 51.70 pg/mL Invalid Interpretation Code 10.10 - 27.10 pg/mL [facility] Chem S Comment on above: Interpretive Data: T he 95% CI (Confidence Interval) PPV (Positive Predictive Value) for myocardial infarction in females is 38 pg/mL, in males 51 pg/mL. The results should be used in conjunction with clinical conditions of myocardial infarction. (Access High Sensitivity Troponin I Instructions For Use, [employer], December 2017) Result Comment: Crit ical Result [...] back by: JOHNNA PERKINS at: 07/05/2023 16:37:35 by:[id number] Interpretive Data: T he 95% CI (Confidence [...] 508 pg/mL High 5 - 80 pg/mL [facility] COAGULATIONOrdered By: Richar Kumar on 07-05-2023 aPTT Coag (PPP) [Time] 27.2 s Normal 25.1 - 36.5 second(s) [facility] Auto Coag Comment on above: Interpretive Data: P arameter 15 days - 4 weeks 1 - 5 months 6 - 11 months 1 - 5 years 6 - 10 years 11 - 17 years PTT Mean: 35.4 (27.6-45.6) Mean: 33.5 (24.8-40.7) Mean: 32.4 (25.1-40.7) Mean: 31.6 (24.0-39.2) Mean: 31.6 (26.9-38.7) Mean: 31.0 (24.6-38.4) Pediatric Reference ranges were obtained from a study by chong Keeys al. prepared from 1437 samples obtained at 7 different centers using the same coagulation reagent and instrumentation as [facility]. Currently there are no coagulation studies available worldwide for children to 14 days, and no normal ranges. Heparin therapeutic range (represented by Anti-Factor Xa activity of 0.2 - 0.4 U/mL) corresponds to PTT of 56.6 - 109.0 sec. INR Coag (PPP) [Relative time] 1.01 {INR} Invalid Interpretation Code [facility] Auto Coag Comment on above: Interpretive Data: I NR results are specifically intended to assess patients stabilized on long-term Anticoagulation therapy suggested INR s Less Intensive Anticoagulation 2.0 3.0 Conventional Range 3.0 4.5 PT Coag (PPP) [Time] 11.2 s Normal 9.4 - 1 2.5 second(s) [facility] Auto Coag Comment on above: Interpretive Data: [...] the same coagulation reagent and instrumentation as [facility]. Currently there are no coagulation studies available worldwide for children to 14 days, and no normal ranges. Consent for Treatmenton 06-15 Consent for Treatment [id number]#1 .00TIFF Normal [facility] Digoxinon 07-05-2023 Digoxin Lvl <0.2 Low 0.5-1.9 [facility] Comment on above: Performed By: #### 1 8337705, 3003916, 89432608, 77469068, 9777785, 10107383, 8820078, 5338057, 3101249, 7709391 ####[facility] [address] [place] [address] ED Note-Physicianon 07-05-19 ED Note-Physician Basic Information [...] patient states she was just released from [facility] hours ago. She states she was [...] acute int (more content not included)... Normal [facility] Comment on above: Result Comment: Elec [...] Normal 80.0 - 100.0 fL Remisol Heme [place] Absolute 0.9 E9/L Normal 0.2 - 1.0 [...] 07-05-2023 Albumin [Mass/Vol] 4.3 g/dL Normal 3.3-5.0 [facility] Comment on above: Performed By: #### 1 5138778, 2567801, 02497022, 44222018, 0930245, 89743926, 9516850, 9800562, 5877680, 1152710 ####[place] [address] [place] [address] Albumin/Globulin [Mass ratio] 1.4 {ratio} Normal 1.1-2.2 [facility] Comment on above: Performed By: #### 1 3156042, 4250178, 28654525, 44216424, 1163890, 06296685, 8921833, 8449542, 5160062, 4379691 ####[place] [address] [place] [address] Alk Phos 77 Int._Unit/L Normal 21-98 [facility] Comment on above: Performed By: #### 1 8501234, 8736874, 58707041, 88770282, 0009975, 57506552, 3128947, 9092195, 7582833, 6801543 ####[place] [address] [place] [address] ALT 20 Int._Unit/L Normal 6-46 [facility] Comment on above: Performed By: #### 1 9418319, 7181933, 00010693, 39115075, 1580120, 48242476, 2826400, 5741222, 5898503, 9426062 ####[address] [address] AST 23 Int._Unit/L Normal 5-43 [facility] Comment on above: Performed By: #### 1 6284370, 4475696, 05400226, 67149500, 9947822, 24816483, 1759535, 8661844, 6015503, 7614075 ####[place] [address] [place] [address] Bili Direct 0.1 mg/dL Normal 0.0-0.4 [facility] Comment on above: Performed By: #### 1 6649415, 3639132, 09484660, 78422865, 7221315, 15568203, 9677268, 2135632, 2844795, 7125508 ####[place] [address] [place] [address] Bili Indirect 0.5 mg/dL Normal 0.1-0.9 [facility] Comment on above: Performed By: #### 1 9114780, 7086962, 23565963, 07945836, 7310873, 79212550, 3789964, 3224131, 0527876, 6437638 ####[facility] [address] [place] [address] Bili Total 0.6 mg/dL Normal 0.0-1.1 [facility] Comment on above: Performed By: #### 1 1666121, 8010009, 60214992, 20186330, 2742495, 49023526, 3768837, 2771140, 6557639, 8585252 ####[place] [address] [place] [address] Globulin (S) [Mass/Vol] 3.0 g/dL Normal 1.4-4.0 [facility] Comment on above: Performed By: #### 1 6160068, 0896961, 60105883, 70846013, 1707435, 58424565, 3736850, 6670250, 6015950, 3192286 ####[facility] [address] [place] [address] Protein [Mass/Vol] 7.3 g/dL Normal 6.0-7.8 [facility] Comment on above: Performed By: #### 1 2018338, 3940288, 24141608, 12251721, 8995359, 78383894, 7930103, 1875298, 0406964, 9989803 ####[facility] [address] [place] [address] Lipase Levelon 07-05-2023 Lipase Lvl 22 unit/L Normal 13-58 [facility] Comment on above: Performed By: #### 1 7094158, 0059516, 65945116, 04174410, 3656558, 11580011, 7881891, 6866269, 9627726, 7618110 ####[place] [address] [place] [address] Magnesiumon 07-05-2023 Magnesium [Mass/Vol] 2.3 mg/dL Normal 1.3-2.4 [facility] Comment on above: Performed By: #### 1 8558943, 4244284, 01682011, 38659279, 8583581, 78058280, 2702683, 5325008, 9980959, 7106240 ####[facility] [address] [place] [address] Monitor Recordon 07-05-2023 Monitor Record [id number]# 1.00TIFF Normal [facility] Monitor Record [id number]# 1.00TIFF Normal [facility] Monitor Record [id number]# 1.00TIFF Normal [facility] PT & PTTon 07-05-2023 aPTT Coag (PPP) [Time] 27.2 second(s) Normal 25.1-36.5 [facility] Comment on above: Result Comment: Para [...] the same coagulation reagent and instrumentation as [facility]. Currently there are no coagulation studies available worldwide for children to 14 days, and no normal ranges. Heparin therapeutic range (represented by Anti-Factor Xa activity of 0.2 - 0.4 U/mL) corresponds to PTT of 56.6 - 109.0 sec. Performed By: #### 1 9799013, 6476132, 51303806, 18180492, 3578077, 74660281, 6322804, 4972625, 5526324, 6624751 ####[facility] [address] [place] [address] INR Coag (PPP) [Relative time] 1.01 {INR} Invalid Interpretation Code [facility] Comment on above: Result Comment: INR results are specifically intended to assess patients stabilized on long-term Anticoagulation therapy suggested INR?s ?Less Intensive Anticoagulation? 2.0 ? 3.0 Conventional Range 3.0 ? 4.5 Performed By: #### 1 2446609, 6386039, 54633165, 66395214, 5539748, 37044193, 3953329, 2657382, 4087853, 9124215 ####[facility] [address] [place] [address] PT Coag (PPP) [Time] 11.2 second(s) Normal 9.4-12.5 [facility] Comment on above: Result Comment: 15 [...] the same coagulation reagent and instrumentation as [facility]. Currently there are no coagulation studies available worldwide for children to 14 days, and no normal ranges. Performed By: #### 1 2869362, 3367270, 24873336, 91045759, 5023315, 28548325, 2265210, 8827402, 2099498, 4214223 ####[facility] [address] [place] [address] Pre-Arrival Noteon 4 Pre-Arrival Note Pre-Arrival Summary Name: , [place] [facility] Current Date: 07/05/2023 15:02:00 EST Gender: Female Date of : Age: 63 Pre-Arrival Type: EMS ETA: 07/05/2023 15:21:00 EST Primary Care Physician: Presenting Problem: HR 40s, CP, SOB, dizziness, abd. pain, nausea Pre-Arrival User: Oxana Pace RN Referring Source: Location: [place] Completion Date/Time: 07/05/2023 14:51:00 [facility] Emergency Department Pre-Hospital Report Form Vital Signs: Pre-Hospital Report: Treatment in Route: Response to Treatment: Misc. Issues: Normal [facility] Troponin 0 Hr.on 07-05-2023 Troponin 49.20 pg/mL Abnormal 10.10-27.10 [facility] Comment on above: Result Comment: Crit ical Result Verified by Repeat Analysis Critical Result I_TnIHS:49.2 Called to and read back by: JOHNNA PERKINS at: 07/05/2023 16:37:35 by:[email or web address] The 95% CI (Confidence Interval) PPV (Positive Predictive Value) for myocardial infarction in females is 38 pg/mL, in males 51 pg/mL. The results should be used in conjunction with clinical conditions of myocardial infarction. (Access High Sensitivity Troponin I Instructions For Use, Johana Christianne, December 2017) Performed By: #### 1 6244576, 8961242, 80316435, 80478198, 4427726, 04923741, 7690106, 1838456, 8536752, 9358984 ####[facility] [address] [place] [address] Troponin 3 Hr.on 07-05-2023 Troponin 51.70 pg/mL Abnormal 10.10-27.10 [facility] Comment on above: Result Comment: The 95% CI (Confidence Interval) PPV (Positive Predictive Value) for myocardial infarction in females is 38 pg/mL, in males 51 pg/mL. The results should be used in conjunction with clinical conditions of myocardial infarction. (Access High Sensitivity Troponin I Instructions For Use, [employer], December 2017) Critical Result Verified by Previous Result Results Called To Johnna Perkins (ER) By And Read Back For Confirmation On 07/05/2023 19:18:03 EST. Performed By: #### 1 [id number] ####[facility] [address] [place] [address] Troponin 6 Hr.on 07-05-2023 Troponin 51.10 pg/mL Abnormal 10.10-27.10 [facility] Comment on above: Result Comment: Crit ical Result I_TnIHS:51.1 Called to and read back by: DR. JUAN MAS at: 07/05/2023 21:51:38 by:[id number] Critical Result Verified by Previous Result The 95% CI (Confidence Interval) PPV (Positive Predictive Value) for myocardial infarction in females is 38 pg/mL, in males 51 pg/mL. The results should be used in conjunction with clinical conditions of myocardial infarction. (GreenVolts High Sensitivity Troponin I Instructions For Use, [employer], December 2017) Performed By: #### 1 6088148 ####[facility] [address] [place] [address] XR Chest Single Viewon 07-05 XR Chest [...] mGy = na DAP = na Normal [facility] eGFRon 07-05-2023 eGFR 39 mL/min/1.73 m2 Low >=59 [facility] Comment on above: Order Comment: Order added by Discern Expert. Performed By: #### 1 8941266, 9624068, 60956586, 26138479, 8429513, 40686692, 5553524, 2736154, 3427379, 2890393 ####[facility] [address] [facility] [place] [address] 36on 07-03-2023 36 Unable to reach pt . Phone not in service [facility] 36 Pts phone number not in service. Spoke to pts friend Arvind and requested he have pt call us, he agrees. [facility] Documentationon 07-03-2023 Documentation [id number] Vivian Vann 1960 F Date Provider Department [place] 07/03/2023 [facility] No family history on file Reason for Visit and Comments: HF inpatient satisfaction suvrey sent. [Other] [facility] 30on 07-02-2023 30 The patient [...] and behaviors that affect risk of falls [place] fall precautions as indicated by assessment Educate [...] and prevent overall improvement and discharge Normal [facility] 30 The patient is Moderately Stable - [...] and behaviors that affect risk of falls [place] fall precautions as indicated by assessment Educate [...] and prevent overall improvement and discharge Normal [facility] BASIC METABOLIC PANELon - Anion gap [Moles/Vol] 11 mmol/L Normal 7-20 [facility] Comment on above: Performed By: #### L [id number] #### [facility] (BEAKER) [address] [place] [address] Calcium [Mass/Vol] 9.0 mg/dL Normal 8.6-10.3 [facility] Comment on above: Performed By: #### L [id number] #### [facility] (BEAKER) [address] [place] [address] Chloride [Moles/Vol] 91 mmol/L Low 98-107 [facility] Comment on above: Performed By: #### L [id number] #### [facility] (BEAKER) [address] [place] [address] CO2 [Moles/Vol] 37 mmol/L High 21-31 [facility] Comment on above: Performed By: #### L [id number] #### [facility] ([facility]) [address] [place] [address] Creatinine [Mass/Vol] 0.89 mg/dL Normal 0.60-1.20 [facility] Comment on above: Performed By: #### L [id number] #### [facility] (BEAKER) [address] [place] [address] GLOMERULAR FILTRATION RATE ML/MIN/1.73 SQ M.PREDICTED 73.3 mL/min/1.73m*2 Normal >60.0 [facility] Comment on above: Result Comment: The [facility]???s estimated glomerular filtration rate (eGFR) will no [...] individuals. Performed By: #### L [id number] #### [facility] ([facility]) [address] [place] [address] Glucose [Mass/Vol] 123 mg/dL High 70-100 [facility] Comment on above: Performed By: #### L [id number] #### [facility] ([facility]) [address] [place] [address] Potassium [Moles/Vol] 3.7 mmol/L Normal 3.5-5.1 [facility] Comment on above: Performed By: #### L [id number] #### [facility] ([facility]) [address] [place] [address] Sodium [Moles/Vol] 135 mmol/L Low 136-145 [facility] Comment on above: Performed By: #### L [id number] #### [facility] ([facility]) [address] [place] [address] Urea nitrogen [Mass/Vol] 29 mg/dL High 7-25 [facility] Comment on above: Performed By: #### L [id number] #### [facility] ([facility]) [address] [place] [address] UREA NITROGEN/CREATININE (MASS RATIO) IN SER/PLAS 32.6 Normal [facility] Comment on above: Performed By: #### L [id number] #### [facility] ([facility] [address] [place] [address] CBCon 07-02-2023 Erythrocyte distribution width (RBC) [Ratio] 15.8 % High 11.5-15.0 [facility] Comment on above: Performed By: #### L [id number] ####[facility] ([facility])[address] [place] [address] ERYTHROCYTE MEAN CORPUSCULAR HEMOGLOBIN CONCENTRATION (G/DL) BY AUTOMATED 31.8 g/dL Low 32.0-35.0 [facility] Comment on above: Performed By: #### L [id number] ####[facility] ([facility])[address] [place] [address] Hematocrit (Bld) [Volume fraction] 44.0 % Normal 36.0-48.0 [facility] Comment on above: Performed By: #### L [id number] ####[facility] ([facility])[address] [place] [address] Hemoglobin (Bld) [Mass/Vol] 14.0 g/dL Normal 12.0-15.0 [facility] Comment on above: Performed By: #### L [id number] ####[facility] ([facility])[address] [place] [address] MCH (RBC) [Entitic mass] 27.9 pg Normal 27.0-33.0 [facility] Comment on above: Performed By: #### L [id number] ####[facility] ([facility])[address] [place] [address] MCV (RBC) [Entitic vol] 87.8 fL Normal 82.0-98.0 [facility] Comment on above: Performed By: #### L [id number] ####[facility] ([facility])[address] [place] [address] PLATELETS (10*3/UL) IN BLOOD AUTOMATED COUNT 285 10*3/uL Normal 150-400 [facility] Comment on above: Performed By: #### L [id number] ####[facility] (BEAKER)[address] [place] [address] RBC (Bld) [#/Vol] 5.01 10*6/uL High 3.80-5.00 [facility] Comment on above: Performed By: #### L [id number] ####[facility] ([facility] [place] [address] WBC (Bld) [#/Vol] 8.89 10*3/uL Normal 4.00-10.60 [facility] Comment on above: Performed By: #### L [id number] ####[facility] ([facility])[address] [place] [address] DSon 07-02-2023 DS Admit Date 06/29/2023 Discharge Date 07/02/2023 Discharge Diagnosis NSTEMI Acute on chronic HFpEF NYHA class 2 CAD DMII noninsulin dependent Chronic pain Anxiety GERD Tobacco abuse Discharge Disposition [facility]Health [facility] Discharge Medications Your medication list START [...] Medications These medications were sent to [facility] - [place], [place] - [address] [facility] [place] [address] [address] [place] [address], [facility] [address] furosemide 40 mg tablet spironolactone 25 mg tablet Activity Normal activity as tolerated Diet Continue on the same type of diet and foods as you were eating before your admission. Drink plenty of water. Allergies Hay fever and allergy relief and House dust Hospital Course History of Present Illness Vivian aVnn is an 63 y.o. female who came from [facility] as direct asmission for NSTEMI. Patient presented 06/28/23 to [place] ED for c/o chest pain and lower [...] General: Abdo (more content not included)... Normal [facility] POCT GLUCOSE METER UNSOLICIT ED RESULTSon 07-02-2023 Glucose [Mass/Vol] 117 mg/dL High 70-105 [facility] Comment on above: Order Comment: Waive d Testing in the ED is performed under the ED CLIA certificate #[id number]. Result Comment: [email or web address] Performed By: #### L [id number] #### [facility] [facility] ([facility]AK[facility] [address] [place] [address] Glucose [Mass/Vol] 110 mg/dL High 70-105 [facility] Comment on above: Order Comment: Waive d Testing in the ED is performed under the ED CLIA certificate #[id number]. Result Comment: [email or web address] Performed By: #### L [id number] ####[facility] (BEAKER)[address] [place] [address] 30on 07-01-2023 30 The patient is Moderately [...] and behaviors that affect risk of falls [place] fall precautions as indicated by assessment Educate [...] and prevent overall improvement and discharge Normal [facility] BASIC METABOLIC PANELon - Anion gap [Moles/Vol] 10 mmol/L Normal 7-20 [facility] Comment on above: Performed By: #### L [id number] #### [facility] ([facility]) [address] [place] [address] Calcium [Mass/Vol] 8.3 mg/dL Low 8.6-10.3 [facility] Comment on above: Performed By: #### L [id number] #### [facility] ([facility]) [address] [place] [address] Chloride [Moles/Vol] 98 mmol/L Normal 98-107 [facility] Comment on above: Performed By: #### L [id number] #### [facility] ([facility]) [address] [place] [address] CO2 [Moles/Vol] 35 mmol/L High 21-31 [facility] Comment on above: Performed By: #### L [id number] #### [facility] ([facility]) [address] [place] [address] Creatinine [Mass/Vol] 1.08 mg/dL Normal 0.60-1.20 [facility] Comment on above: Performed By: #### L [id number] #### [facility] ([facility]) [address] [place] [address] GLOMERULAR FILTRATION RATE ML/MIN/1.73 SQ M.PREDICTED 58.1 mL/min/1.73m*2 Low >60.0 [facility] Comment on above: Result Comment: [facility]???s estimated glomerular filtration rate (eGFR) will no [...] individuals. Performed By: #### L [id number] #### [facility] ([facility]) [address] [place] [address] Glucose [Mass/Vol] 116 mg/dL High 70-100 [facility] Comment on above: Performed By: #### L [id number] #### [facility] ([facility]) [address] [place] [address] Potassium [Moles/Vol] 3.7 mmol/L Normal 3.5-5.1 [facility] Comment on above: Performed By: #### L [id number] #### [facility] ([facility]) [address] [place] [address] Sodium [Moles/Vol] 139 mmol/L Normal 136-145 [facility] Comment on above: Performed By: #### L [id number] #### [facility] ([facility]) [address] [place] [address] Urea nitrogen [Mass/Vol] 27 mg/dL High 7-25 [facility] Comment on above: Performed By: #### L [id number] #### [facility] ([facility]) [address] [place] [address] UREA NITROGEN/CREATININE (MASS RATIO) IN SER/PLAS 25.0 Normal [facility] Comment on above: Performed By: #### L [id number] #### [facility] ([facility]) [address] [place] [address] POCT GLUCOSE METER UNSOLICIT ED RESULTSon 07-01-2023 Glucose [Mass/Vol] 132 mg/dL High 70-105 [facility] Comment on above: Order Comment: Waive d Testing in the ED is performed under the ED CLIA certificate #[id number]. Result Comment: [email or web address] weir Performed By: #### L [id number] ####[facility] ([facility])[address] [place] [address] Glucose [Mass/Vol] 106 mg/dL High 70-105 [facility] Comment on above: Order Comment: Waive d Testing in the ED is performed under the ED CLIA certificate #[id number]. Result Comment: [email or web address] [email or web address] Performed By: #### L [id number] ####[facility] ([facility])[address] [place] [address] Glucose [Mass/Vol] 121 mg/dL High 70-105 [facility] Comment on above: Order Comment: Waive d Testing in the ED is performed under the ED CLIA certificate #[id number]. Result Comment: [email or web address] [email or web address] Performed By: #### L [id number] ####[facility] ([facility])[address] [place] [address] Glucose [Mass/Vol] 105 mg/dL Normal 70-105 [facility] Comment on above: Order Comment: Waive d Testing in the ED is performed under the ED CLIA certificate #[id number]. Result Comment: [email or web address] rad Performed By: #### L [id number] #### [facility] ([facility]) [address] [place] [address] 30on 06-30-2023 30 The patient is Moderately [...] and maintained or improved Outcome: Progressing Normal [facility] ANTI-XA (HEPARIN LEVEL)on HEPARIN UNFRACTIONATED (U/ML) IN PPP BY CHROMOGENIC METHOD <0.10 Invalid Interpretation Code 0.3-0.7 [facility] Comment on above: Order Comment: Check anti-Xa level every 6 hours while on heparin infusion, or per protocol. Result Comment: Brewster roxaban and Apixaban will interfere with the anti Xa assay used to monitor UFH and LMWH. Performed By: #### L [id number] #### [facility] ([facility]) [address] [place] [address] CBCon 06-30-2023 Erythrocyte distribution width (RBC) [Ratio] 15.3 % High 11.5-15.0 [facility] Comment on above: Performed By: #### L [id number] ####[facility] (BEAKER)[address] [place] [place] [address] ERYTHROCYTE MEAN CORPUSCULAR HEMOGLOBIN CONCENTRATION (G/DL) BY AUTOMATED 32.2 g/dL Normal 32.0-35.0 [facility] Comment on above: Performed By: #### L [id number] ####[facility] ([facility])[address] [place] [address] Hematocrit (Bld) [Volume fraction] 35.7 % Low 36.0-48.0 [facility] Comment on above: Performed By: #### L [id number] ####[facility] ([facility])[address] [place] [address] Hemoglobin (Bld) [Mass/Vol] 11.5 g/dL Low 12.0-15.0 [facility] Comment on above: Performed By: #### L [id number] ####[facility] (BEAKER)[address] [place] [address] MCH (RBC) [Entitic mass] 28.1 pg Normal 27.0-33.0 [facility] Comment on above: Performed By: #### L [id number] ####[facility] (BEAKER)[address] [place] [address] MCV (RBC) [Entitic vol] 87.3 fL Normal 82.0-98.0 [facility] Comment on above: Performed By: #### L [id number] ####[facility] (BEAKER)[address] [place] [address] PLATELETS (10*3/UL) IN BLOOD AUTOMATED COUNT 219 10*3/uL Normal 150-400 [facility] Comment on above: Performed By: #### L [id number] ####[facility] (BEAKER)[address] [place] [address] RBC (Bld) [#/Vol] 4.09 10*6/uL Normal 3.80-5.00 [facility] Comment on above: Performed By: #### L [id number] ####[facility] (BEAKER)[address] [place] [address] WBC (Bld) [#/Vol] 10.22 10*3/uL Normal 4.00-10.60 [facility] Comment on above: Performed By: #### L [id number] ####[facility] (BEAKER)[address] [place] [address] CONSULTon 06-30-2023 CONSULT Clinical Nutrition Assessment Name: [...] with questions and contact the dietitian via imbookin (Pogby) chat 8A-4P Sunday-Sunday. Or call the dietitian's office at extension [phone]. For weekends/holidays, the dietitian's can be reached by paging [phone] from 9A-3P. Unable to be reached via RoomActually chat on Sunday & .) Normal [facility] HEMOGLOBIN A1Con 06-30-2023 Glucose [Mass/Vol] 143 mg/dL Normal [facility] Comment on above: Performed By: #### L [id number] ####[facility] (BEAKER)[address] [place] [address] HbA1c (Bld) [Mass fraction] 6.6 % High 4.0-6.0 [facility] Comment on above: Performed By: #### L [id number] ####[facility] (BEAKER)[address] [place] [address] LACTIC ACID WITH 4 HOUR REFL EXon 06-30-2023 LACTATE (MMOL/L) IN SER/PLAS 1.9 mmol/L Normal 0.5-2.2 [facility] Comment on above: Performed By: #### L [id number] #### [facility] ([facility]) [address] [place] [address] POCT GLUCOSE METER UNSOLICIT ED RESULTSon 06-30-2023 Glucose [Mass/Vol] 156 mg/dL High 70-105 [facility] Comment on above: Order Comment: Waive d Testing in the ED is performed under the ED CLIA certificate #[id number]. Result Comment: magda weir Performed By: #### L [id number] ####[facility] (BEAKER)[address] [place] [address] Glucose [Mass/Vol] 149 mg/dL High 70-105 [facility] Comment on above: Order Comment: Waive d Testing in the ED is performed under the ED CLIA certificate #[id number]. Result Comment: [email or web address] Performed By: #### L [id number] #### [facility] ([facility]) [address] [place] [address] Glucose [Mass/Vol] 181 mg/dL High 70-105 [facility] Comment on above: Order Comment: Waive d Testing in the ED is performed under the ED CLIA certificate #[id number]. Result Comment: [email or web address] Performed By: #### L [id number] #### [facility] ([facility]) [address] [place] [address] 30on 06-29-2023 30 The patient is Moderately [...] and maintained or improved Outcome: Progressing Normal [facility] 30 The patient is Moderately Stable - Low risk of patient condition declining or worsening The patient's goals for the shift include no chest pain The clinical goals for the shift include vss Over the shift, the patient did not make progress toward the following goals. Barriers to progression include . Recommendations to address these barriers include . Normal [facility] APTTon 06-29-2023 ACTIVATED PARTIAL THROMBOPLASTIN TIME IN PPP BY COAGULATION ASSAY 67.3 Seconds High 25.0-35.0 [facility] Comment on above: Result Comment: Clin ical significance of the APTT is questionable in the presence of heparin. Performed By: #### L [id number] #### [facility] ([facility]) [address] [place] [address] B-TYPE NATRIURETIC PEPTIDEon 06-29-2023 Natriuretic peptide B (Bld) [Mass/Vol] 1683 pg/mL High 0-100 [facility] Comment on above: Performed By: #### L [id number] #### [facility] ([facility]) [address] [place] [address] BASIC METABOLIC PANELon 06-14 Anion gap [Moles/Vol] 14 mmol/L Normal 7-20 [facility] Comment on above: Performed By: #### L [id number] #### [facility] ([facility]) [address] [place] [address] Calcium [Mass/Vol] 8.2 mg/dL Low 8.6-10.3 [facility] Comment on above: Performed By: #### L [id number] #### [facility] ([facility]) [address] [place] [address] Chloride [Moles/Vol] 102 mmol/L Normal 98-107 [facility] Comment on above: Performed By: #### L [id number] #### [facility] ([facility]) [address] [place] [address] CO2 [Moles/Vol] 25 mmol/L Normal 21-31 [facility] Comment on above: Performed By: #### L [id number] #### [facility] ([facility]) [address] [place] [address] Creatinine [Mass/Vol] 1.04 mg/dL Normal 0.60-1.20 [facility] Comment on above: Performed By: #### L [id number] #### [facility] ([facility]) [address] [place] [address] GLOMERULAR FILTRATION RATE ML/MIN/1.73 SQ M.PREDICTED 60.8 mL/min/1.73m*2 Normal >60.0 [facility] Comment on above: Result Comment: [facility]???s estimated glomerular filtration rate (eGFR) will no [...] individuals. Performed By: #### L [id number] #### [facility] ([facility]) [address] [place] [address] Glucose [Mass/Vol] 268 mg/dL High 70-100 [facility] Comment on above: Performed By: #### L [id number] #### [facility] ([facility]) [address] [place] [address] Potassium [Moles/Vol] 4.1 mmol/L Normal 3.5-5.1 [facility] Comment on above: Performed By: #### L [id number] #### [facility] ([facility]) [address] [place] [address] Sodium [Moles/Vol] 137 mmol/L Normal 136-145 [facility] Comment on above: Performed By: #### L [id number] #### [facility] ([facility]) [address] [place] [address] Urea nitrogen [Mass/Vol] 14 mg/dL Normal 7-25 [facility] Comment on above: Performed By: #### L [id number] #### [facility] ([facility]) [address] [place] [address] UREA NITROGEN/CREATININE (MASS RATIO) IN SER/PLAS 13.5 Normal [facility] Comment on above: Performed By: #### L [id number] #### [facility] ([facility]) [address] [place] [address] CBCon 06-29-2023 Erythrocyte distribution width (RBC) [Ratio] 15.3 % High 11.5-15.0 [facility] Comment on above: Performed By: #### L [id number] #### [facility] ([facility]) [address] [place] [address] ERYTHROCYTE MEAN CORPUSCULAR HEMOGLOBIN CONCENTRATION (G/DL) BY AUTOMATED 31.8 g/dL Low 32.0-35.0 [facility] Comment on above: Performed By: #### L [id number] #### [facility] ([facility]) [address] [place] [address] Hematocrit (Bld) [Volume fraction] 39.3 % Normal 36.0-48.0 [facility] Comment on above: Performed By: #### L [id number] #### [facility] ([facility]) [address] [place] [address] Hemoglobin (Bld) [Mass/Vol] 12.5 g/dL Normal 12.0-15.0 [facility] Comment on above: Performed By: #### L [id number] #### [facility] ([facility]) [address] [place] [address] MCH (RBC) [Entitic mass] 28.4 pg Normal 27.0-33.0 [facility] Comment on above: Performed By: #### L [id number] #### [facility] ([facility]) [address] [place] [address] MCV (RBC) [Entitic vol] 89.3 fL Normal 82.0-98.0 [facility] Comment on above: Performed By: #### L [id number] #### [facility] ([facility]) [address] [place] [address] PLATELETS (10*3/UL) IN BLOOD AUTOMATED COUNT 218 10*3/uL Normal 150-400 [facility] Comment on above: Performed By: #### L [id number] #### [facility] ([facility]) [address] [place] [address] RBC (Bld) [#/Vol] 4.40 10*6/uL Normal 3.80-5.00 [facility] Comment on above: Performed By: #### L [id number] #### [facility] ([facility]) [address] [place] [address] WBC (Bld) [#/Vol] 9.91 10*3/uL Normal 4.00-10.60 [facility] Comment on above: Performed By: #### L [id number] #### [facility] ([facility]) [address] [place] [address] COMPREHENSIVE METABOLIC PANE Pollo 06-29-2023 Albumin [Mass/Vol] 3.8 g/dL Normal 3.5-5.7 [facility] Comment on above: Performed By: #### L [id number] ####[facility] ([facility]AKER)[address] [place] [address] ALP [Catalytic activity/Vol] 77 U/L Normal 34-104 [facility] Comment on above: Performed By: #### L [id number] ####[facility] ([facility]ER)[address] [place] [address] ALT [Catalytic activity/Vol] 23 U/L Normal 7-52 [facility] Comment on above: Performed By: #### L [id number] ####[facility] ([facility]ER)[address] [place] [address] Anion gap [Moles/Vol] 10 mmol/L Normal 7-20 [facility] Comment on above: Performed By: #### L [id number] ####[facility] (BEAKER)[address] [place] [address] AST [Catalytic activity/Vol] 23 U/L Normal 13-39 [facility] Comment on above: Performed By: #### L [id number] ####[facility] (BEAKER)[address] [place] [address] Bilirubin [Mass/Vol] 0.4 mg/dL Normal 0.3-1.0 [facility] Comment on above: Performed By: #### L [id number] ####[facility] (BE[facility]ER)[address] [place] [address] Calcium [Mass/Vol] 8.6 mg/dL Normal 8.6-10.3 [facility] Comment on above: Performed By: #### L [id number] ####[facility] ([facility])[address] [place] [address] Chloride [Moles/Vol] 107 mmol/L Normal 98-107 [facility] Comment on above: Performed By: #### L [id number] ####[facility] ([facility]ER)[address] [place] [address] CO2 [Moles/Vol] 27 mmol/L Normal 21-31 [facility] Comment on above: Performed By: #### L [id number] ####[facility] ([facility])[address] [place] [address] Creatinine [Mass/Vol] 1.01 mg/dL Normal 0.60-1.20 [facility] Comment on above: Performed By: #### L [id number] ####[facility] ([facility])[address] [place] [address] GLOMERULAR FILTRATION RATE ML/MIN/1.73 SQ M.PREDICTED 62.9 mL/min/1.73m*2 Normal >60.0 [facility] Comment on above: Result Comment: [facility]???s estimated glomerular filtration rate (eGFR) will no [...] of individuals. Performed By: #### L [id number] ####[facility] ([facility]ER)[address] [place] [address] Glucose [Mass/Vol] 148 mg/dL High 70-100 [facility] Comment on above: Performed By: #### L [id number] ####[facility] (BEAKER)[address] [place] [address] Potassium [Moles/Vol] 4.2 mmol/L Normal 3.5-5.1 [facility] Comment on above: Performed By: #### L [id number] ####[facility] ([facility])[address] [place] [address] Protein [Mass/Vol] 6.3 g/dL Normal 6.0-8.3 [facility] Comment on above: Performed By: #### L [id number] ####[facility] ([facility])[address] [place] [address] Sodium [Moles/Vol] 140 mmol/L Normal 136-145 [facility] Comment on above: Performed By: #### L [id number] ####[facility] ([facility])[address] [place] [address] Urea nitrogen [Mass/Vol] 10 mg/dL Normal 7-25 [facility] Comment on above: Performed By: #### L [id number] ####[facility] ([facility])[address] [place] [address] UREA NITROGEN/CREATININE (MASS RATIO) IN SER/PLAS 9.9 Normal [facility] Comment on above: Performed By: #### L [id number] ####[facility] ([facility])[address] [place] [address] CONSULTon 06-29-2023 CONSULT - Attestation signed by [...] tobacco use comes as a transfer from [facility] due to suspected NSTEMI. Patient was [...] Her troponins were elevated at [address] [facility] and recheck here shows 0.07. Patient [...] Value Ventricular Rate 61 Atrial Rate 61 NC Interval 150 (more content not included)... Normal [facility] HPon 06-29-2023 HP Interval Pre-Procedural H&P Reason for Consult: NSTEMI HPI: Vivian Vann is a 63 y.o. female with PMH of CAD s/p PCI to LAD (October 2021), HTN, HLD, COPD, tobacco use comes as a transfer from [facility] due to suspected NSTEMI. Patient was [...] Her troponins were elevated at [address] [facility] and recheck here shows 0.07. Patient [...] Value Ventricular Rate 61 Atrial Rate 61 NC Interval 150 QRS DURATION 88 QT Interval 476 QTC CALCULATION(BAZETT) 479 P Gratis 68 R-Gratis 25 T Wave Gratis 128 Impression Normal sinus rhythm Right atrial [...] deformity. End (more content not included)... Normal [facility] LACTIC ACID WITH 4 HOUR REFL EXon 06-29-2023 LACTATE (MMOL/L) IN SER/PLAS 3.6 mmol/L Critically high 0.5-2.2 [facility] Comment on above: Result Comment: M-NC EVIOUS CRITICAL RESULT Previous result verified on 06/29/2023 1809 on specimen/case [id number] called with component Lactate blood venous for procedure Lactic acid with 4 hour reflex with value 2.7 mmol/L. Performed By: #### L [id number] #### [facility] ([facility]) [address] [place] [address] LACTATE (MMOL/L) IN SER/PLAS 2.7 mmol/L Critically high 0.5-2.2 [facility] Comment on above: Performed By: #### L [id number] #### [facility] ([facility]) [address] [place] [address] LACTATE (MMOL/L) IN SER/PLAS 2.5 mmol/L High 0.5-2.2 [facility] Comment on above: Performed By: #### L [id number] ####[facility] ([facility])[address] [place] [address] MAGNESIUMon 06-29-2023 Magnesium [Mass/Vol] 2.1 mg/dL Normal 1.9-2.7 [facility] Comment on above: Performed By: #### L [id number] ####[facility] ([facility])[address] [place] [address] Magnesium [Mass/Vol] 2.2 mg/dL Normal 1.9-2.7 [facility] Comment on above: Performed By: #### L [id number] #### [facility] ([facility]) [address] [place] [address] Magnesium [Mass/Vol] 1.7 mg/dL Low 1.9-2.7 [facility] Comment on above: Performed By: #### L [id number] #### [facility] ([facility]) [address] [place] [address] NURSNOTEon 06-29-2023 NURSNOTE Notified [place] [facility] Hospitalist critical lactate 2.7 no orders received said she would recheck lactate in 4 hrs Normal [facility] PHOSPHORUSon 06-29-2023 Magnesium [Mass/Vol] 3.5 mg/dL Normal 2.5-5.0 [facility] Comment on above: Performed By: #### L [id number] ####[facility] ([facility])[address] [place] [address] PROTIME-INRon 06-29-2023 INR IN PPP BY COAGULATION ASSAY 0.98 Normal 0.90-1.10 [facility] Comment on above: Result Comment: ACCC P [...] CHEST 1995;[id number]. Performed By: #### L [id number] ####[facility] ([facility])[address] [place] [address] PROTHROMBIN TIME (PT) IN PPP BY COAGULATION ASSAY 13.0 Seconds Normal 12.3-14.8 [facility] Comment on above: Performed By: #### L [id number] ####[facility] ([facility])[address] [place] [address] TROPONIN Ion 06-29-2023 Troponin I.cardiac [Mass/Vol] 0.06 ng/mL High 0.00-0.04 [facility] Comment on above: Performed By: #### L [id number] #### [facility] ([facility]) [address] [place] [address] Troponin I.cardiac [Mass/Vol] 0.07 ng/mL High 0.00-0.04 [facility] Comment on above: Performed By: #### L [id number] ####[facility] ([facility])[address] [place] [address] Troponin I.cardiac [Mass/Vol] 0.07 ng/mL High 0.00-0.04 [facility] Comment on above: Performed By: #### L [id number] #### [facility] ([facility]) [address] [place] [address] CBC W MANUAL DIFFon 08-25-19 ANISOCYTOSIS 1+ Normal [facility] Comment on above: Performed By: #### C BCISAIAH ####[facility] [id number] [place] [address]Dr. Yilan Yañez ATYPICAL LYMPH # Normal [facility] Comment on above: Performed By: #### C BCISAIAH ####[facility] [address] [place] [id number]. Yilan Yañez ATYPICAL LYMPH % Normal [facility] Comment on above: Performed By: #### C BCISAIAH ####[facility] [id number] [place] [address]Dr. Yilan Yañez BAND # 0.2 103/ul Normal 0.0-0.[address] [facility] Comment on above: Performed By: #### C ROSARIO ####[facility] [address] [place] [address]Dr. Yilan Yañez BAND % 1 % Normal 0-[address] [facility] Comment on above: Performed By: #### C ROSARIO ####[facility] [address] [place], [place] [address]Dr. Yiashley Yañez BASOM # 0.00 103/ul Normal 0.00-0.[address] [facility] Comment on above: Performed By: #### C ROSARIO ####[facility] [address] [place], [place] [address]Dr. Nahed Yañez BASOM % 0.0 % Critically low 0.2-2.0 The [facility] Comment on above: Performed By: #### C ROSARIO ####[facility] [address] [place] [address]Dr. Yilan Yañez BLAST # Normal [facility] Comment on above: Performed By: #### C ROSARIO ####[facility] Gnpgnkztwr0081 [place] [address]Dr. Yilan Yañez BLAST % Normal [facility] Comment on above: Performed By: #### C ROSARIO ####[facility] Itbvbbfsea7597 [place] [address]Dr. Nahed Yañez CORRECTED WBC Normal 4.0-11.0 The [facility] Comment on above: Performed By: #### C ROSARIO ####[facility] Qxgsgluxdx0990 [place], [place] [address]Uf. Nahed Yañez EOS # 0.00 103/ul Normal 0.00-0.[address] [facility] Comment on above: Performed By: #### C ROSARIO ####[facility] Eoemfrwigi9566 [place] [id number]. Nahed Yañez EOS% 0.0 % Critically low 0.9-7.0 The [facility] Comment on above: Performed By: #### C ROSARIO ####[facility] Eybczhfdnt6424 [place] [phone]. Nahed Yañez HCT 33.9 % Critically low 36.0-48.0 The [facility] Comment on above: Performed By: #### C ROSARIO ####[facility] Nnmzudxulh0661 [place] [phone]. Nahed Yañez HGB 10.8 g/dl Critically low 12.0-16.0 The [facility] Comment on above: Performed By: #### C ROSARIO ####[facility] Hgjjtzsici1936 [place] [phone]. Nahed Yañez HYPOCHROMASIA SLIGHT Normal [facility] Comment on above: Performed By: #### C ROSARIO ####[facility] Oloyugjdvx5457 [place] [phone]. Nahed Yañez LYMPHM # 2.59 103/ul Normal 1.20-3.[address] [facility] Comment on above: Performed By: #### C ROSARIO ####[facility] Vcgmiuqwvp6494 [place] [phone]. Nahed Yañez LYMPHM% 16.0 % Critically low 20.5-60.0 The [facility] Comment on above: Performed By: #### C ROSARIO ####[facility] Kieaohmljm4152 [place] [phone]. Nahed Yañez MCH 28.5 pg Normal 26.7-34.[address] [facility] Comment on above: Performed By: #### C ROSARIO ####[facility] Thiyumwofi0128 [place] [phone]. Nahed Yañez MCHC 31.9 g/dl Normal 29.9-35.[address] [facility] Comment on above: Performed By: #### C ROSARIO ####[facility] Bcktyenqou3555 [place] [phone]. Nahed Yañez MCV 89.4 fL Normal 81.0-99.0 [facility] Comment on above: Performed By: #### C ROSARIO ####[facility] Cigzfetiyu2354 [place] [phone]. Nahed Yañez METAMYELOCYTE # Normal [facility] Comment on above: Performed By: #### C ROSARIO ####[facility] Eslbwlikzp9927 [place] [phone]. Nahed Yañez METAMYELOCYTE % Normal [facility] Comment on above: Performed By: #### C ROSARIO ####[facility] Rtykzyhpty5968 [place] [phone]. Nahed Yañez MONOM# 1.30 103/ul Critically high 0.30-0.80 [facility] Comment on above: Performed By: #### C ROSARIO ####[facility] Rxqdovzrbj2780 [place] [phone]. Naehd Yañez MONOM% 8.0 % Normal 1.7-12.0 [facility] Comment on above: Performed By: #### C ROSARIO ####[facility] Vyffinerog1742 [place] [phone]. Nahed Yañez MPV 9.8 fL Normal 9.5-13.[address] [facility] Comment on above: Performed By: #### C ROSARIO ####[facility] Jkzlxpjfxs8595 [place] [phone]. Nahed Yañez MYELOCYTE # Normal [facility] Comment on above: Performed By: #### C ROSARIO ####[facility] Ihgyxzcdgo5702 [place] [phone]. Nahed Yañez MYELOCYTE % Normal [facility] Comment on above: Performed By: #### C ROSARIO ####[facility] Bgaktbkntl[address] [place], [place] [phone]. Nahed Yañez NRBC Normal [facility] Comment on above: Performed By: #### C ROSARIO ####[facility] Kmxwzjyuze7609 [place], [place] [address]Wr. Nahed Yañez PLT 302 103/ul Normal 150-450 [facility] Comment on above: Performed By: #### C ROSARIO ####[facility] Nmomhiqjzr9117 [place], [place] [address]VbShaun Yañez RBC 3.79 106/ul Critically low 4.20-5.40 [facility] [place] [facility] Comment on above: Performed By: #### C ROSARIO ####[facility] Ahnpvzabme1354 [place], [place] [address]Dm. Nahed Yañez RDW 15.3 % Critically high 11.0-15.0 [facility] [place] [facility] Comment on above: Performed By: #### C ROSARIO ####[facility] Fpyheifqel3953 [place], [place] [address]Da. Nahed Yañez SEG # 12.15 103/ul Critically high 1.40-6.50 [facility] Comment on above: Performed By: #### C ROSARIO ####[facility] Mmqnkojzme9566 [place], [place] [address]Gv. Nahed Yañez SEG % 75.0 % Normal 43.0-75.0 [facility] Comment on above: Performed By: #### C ROSARIO ####[facility] Askitwrneq8838 [place], [place] [address]Wo. Nahed Yañez WBC 16.2 103/ul Critically high 4.0-11.0 [facility] Comment on above: Performed By: #### C ROSARIO ####[facility] Vndffvxbxi8920 [place], [place] [address]PuShaun Nahed Yañez POINT OF CARE GLUCOSEon 08-12 Glucose [Mass/Vol] 221 mg/dL Critically high 74-106 [facility] Comment on above: Performed By: #### P OCGLUC ####[facility] Pjhxomcram2639 [place], [place] [address]CwShaun Yañez PROF 14(COMP METB)on 023 Albumin [Mass/Vol] 2.2 g/dL Critically low 3.4-5.0 Th [facility] Comment on above: Performed By: #### C RENZO, JUDY ####[facility] Wmmhktkdsz4244 [place] [address]Dr. Nahed Yañez Albumin/Globulin [Mass ratio] 0.6 {ratio} Normal [facility] Comment on above: Performed By: #### C RENZO, JUDY ####[facility] Zndoqifrfm7616 [place] [address]Dr. Nahed Yañez ALP [Catalytic activity/Vol] 87 U/L Normal 46-116 [facility] Comment on above: Performed By: #### C RENZO, JUDY ####[facility] Tnpxtxvhmb[address] [place], [place] [address]Dr. Nahed Yañez ALT [Catalytic activity/Vol] 17 U/L Normal 14-59 [facility] Comment on above: Performed By: #### C RENZO, JUDY ####[facility] Zghfahlrly2551 [place] [address]Dr. Nahed Yañez Anion gap [Moles/Vol] 9.4 mmol/L Normal [facility] Comment on above: Performed By: #### C RENZO, JUDY ####[facility] Glyqwgwnhc0912[address] [place], [place] [address]Dr. Nahed Yañez AST [Catalytic activity/Vol] 13 U/L Critically low 15-37 [facility] Comment on above: Performed By: #### C RENZO, JUDY ####[facility] Coflmwhitu0699 [place] [address]Dr. Nahed Yañez Bilirubin [Mass/Vol] 0.2 mg/dL Normal 0.2-1.0 [facility] Comment on above: Performed By: #### C RENZO, JUDY ####[facility] Dexgsgqopm5190 [place] [address]Dr. Nahed Yañez Calcium [Mass/Vol] 9.1 mg/dL Normal 8.5-10.1 [facility] Comment on above: Performed By: #### C RENZO, JUDY ####[facility] Jsxcnwgzts2786 [place] [address]Dr. Nahed Yañez Chloride [Moles/Vol] 103 mmol/L Normal 98-[address] [facility] Comment on above: Performed By: #### C RENZO, JUDY ####[facility] Ptcktwtkyi1007 [place] [address]Dr. Nahed Yañez CO2 [Moles/Vol] 29.1 mmol/L Normal 21.0-32.0 The [facility] Comment on above: Performed By: #### C RENZO, JUDY ####[facility] Sxnaolefzo6766 [place] [address]Dr. Nahed Yañez Creatinine [Mass/Vol] 1.05 mg/dL Critically high 0.55-1.[address] [facility] Comment on above: Performed By: #### C RENZO, JUDY ####[facility] Esjzdynhya4333 [place] [address]Dr. Nahed Yañez EGFR-AF OMANI >60 Normal >=60 [facility] Comment on above: Performed By: #### C RENZO, JUDY ####[facility] Enscyysvln5589 [place] [address]Dr. Nahed Yañez EGFR-NON AF OMANI 53 mL/min/1.73m2 Critically low >=[address] [facility] Comment on above: Performed By: #### C RENZO, JUDY ####[facility] Vcvjecoivd1535 [place] [address]Dr. Nahed Yañez Globulin (S) [Mass/Vol] 3.5 g/dL Normal [facility] Comment on above: Performed By: #### C RENZO, JUDY ####[facility] Vulvwwrufr7916 [place] [address]Dr. Nahed Yañez Glucose [Mass/Vol] 121 mg/dL Critically high 74-106 [facility] Comment on above: Performed By: #### C RENZO, JUDY ####[facility] Tfvabohqom7938 [place] [address]Dr. Nahed Yañez Potassium [Moles/Vol] 4.5 mmol/L Normal 3.5-5.[address] [facility] Comment on above: Performed By: #### C RENZO, JUDY ####[facility] Dwdbbmqycz1174 [place] [address]Dr. Nahed Yañez Protein [Mass/Vol] 5.7 g/dL Critically low 6.4-8.2 Th [facility] Comment on above: Performed By: #### C MP, JUDY ####[facility] Mmuuqmkuvj2821 [place] [address]Dr. Nahed Yañez Sodium [Moles/Vol] 137 mmol/L Normal 136-145 [facility] Comment on above: Performed By: #### C RENZO, JUDY ####[facility] Gcqfdyzosc4493 [place] [address]Dr. Nahed Yañez Urea nitrogen [Mass/Vol] 24.0 mg/dL Critically high 7.0-18.0 [facility] Comment on above: Performed By: #### C RENZO, JUDY ####[facility] Jnrngfsftk[address] [place], [place] [address]Dr. Nahed Yañez Urea nitrogen/Creatinine [Mass ratio] 22.9 mg/mg Normal [facility] Comment on above: Performed By: #### C RENZO, JUDY ####[facility] Xljgecxkld90[address] [place], [place] [address]Dr. Nahed Otilio THEOPHYLLINEon 08-24-2022 THEOPHYLLINE 18.2 ug/mL Normal 10.0-20.0 [facility] Comment on above: Performed By: #### C RENZO, JUDY ####[facility] Fpcadaucmu90[address] [place], [place] [address]Dr. Nahed Otilio CBC W MANUAL DIFFon 08-24-19 23 ATYPICAL LYMPH # 0.20 103/ul Normal [facility] Comment on above: Performed By: #### C BCMAN ####[facility] Izveqjpuyq[address] [place], [place] [address]Dr. Nahed Otilio ATYPICAL LYMPH % 1 % Normal [facility] Comment on above: Performed By: #### C BCMAN ####[facility] Cplafchmto2176 [place] [address]Dr. Nahed Yañez BAND # 0.0 103/ul Normal 0.0-0.3 [facility] Comment on above: Performed By: #### C BCISAIAH ####[facility] Marshjxblj7410 [place] [phone]. Yiashley Yañez BAND % 0 % Normal 0-[address] [facility] Comment on above: Performed By: #### C BCISAIAH ####[facility] Vfroyqszhb5741 [place] [phone]. Yiashley Yañez BASOM # 0.00 103/ul Normal 0.00-0.[address] [facility] Comment on above: Performed By: #### C BCISAIAH ####[facility] Aeddhodpco8057 [place] [address]Dr. Yiashley Yañez BASOM % 0.0 % Critically low 0.2-2.0 The [facility] Comment on above: Performed By: #### C ROSARIO ####[facility] Sdberlvlpg7834 [place] [address]Dr. Yilan Yañez BLAST # Normal [facility] Comment on above: Performed By: #### C ROSARIO ####[facility] Sqckmmyteq1946 [place] [address]Dr. Yilan Yañez BLAST % Normal [facility] Comment on above: Performed By: #### C ROSARIO ####[facility] Tzwtuiigne27[address] [place], [place] [address]Dr. Nahed Yañez CORRECTED WBC Normal 4.0-11.0 [facility] Comment on above: Performed By: #### C BCISAIAH ####[facility] Atrxiuwpwm8259 [place] [address]Dr. Yiashley Yañez EOS # 0.00 103/ul Normal 0.00-0.[address] [facility] Comment on above: Performed By: #### C BCISAIAH ####[facility] Dmbwcxxgbg[address] [place], [place] [address]Dr. Yiashley Yañez EOS% 0.0 % Critically low 0.9-7.0 The [facility] Comment on above: Performed By: #### C BCISAIAH ####[facility] Gplqjnvwlc8999 [place] [address]Dr. Yilan Yañez HCT 33.5 % Critically low 36.0-48.0 [facility] Comment on above: Performed By: #### C ROSARIO ####[facility] Runfoqirmk7552 [place], [place] [address]Oy. Nahed Yañez HGB 10.7 g/dl Critically low 12.0-16.0 [facility] Comment on above: Performed By: #### C ROSARIO ####[facility] Srmgdjmmux1656 [place], [place] [address]Nh. Nahed Yañez LYMPHM # 1.39 103/ul Normal 1.20-3.80 [facility] Comment on above: Performed By: #### C ROSARIO ####[facility] Jehwnaytlu7594 [place], [place] [address]Ag. Nahed Yañez LYMPHM% 7.0 % Critically low 20.5-60.0 [facility] Comment on above: Performed By: #### C ROSARIO ####[facility] Rfmuyrookx1784 [place], [place] [address]Kd. Nahed Yañez MCH 28.5 pg Normal 26.7-34.0 [facility] Comment on above: Performed By: #### C ROSARIO ####[facility] Srsalbwsnm2380 [place], [place] [address]Zr. Nahed Yañez MCHC 31.9 g/dl Normal 29.9-35.2 [facility] Comment on above: Performed By: #### C ROSARIO ####[facility] Qjywsalzyk8453 [place], [place] [address]Op. Nahed Yañez MCV 89.1 fL Normal 81.0-99.0 [facility] Comment on above: Performed By: #### C ROSARIO ####[facility] Liydmfxsys9098 [place], [place] [address]Ct. Nahed Yañez METAMYELOCYTE # Normal [facility] Comment on above: Performed By: #### C ROSARIO ####[facility] Urlkimqzut6315 [place], [place] [address]Wc. Nahed Yañez METAMYELOCYTE % Normal [facility] Comment on above: Performed By: #### C ROSARIO ####[facility] Qmmznoimnr9557 [place] [phone]. Nahed Yañez MONOM# 0.40 103/ul Normal 0.30-0.80 [facility] Comment on above: Performed By: #### C ROSARIO ####[facility] Svpaiwelaz3214 [place] [phone]. Nahed Yañez MONOM% 2.0 % Normal 1.7-12.0 [facility] Comment on above: Performed By: #### C ROSARIO ####[facility] Hmrskqmgic1104 [place] [address]Dr. Nahed Yañez MPV 10.0 fL Normal 9.5-13.5 [facility] Comment on above: Performed By: #### C ROSARIO ####[facility] Brafjwbmle[address] [place], [place] [address]Dr. Nahed Yañez MYELOCYTE # Normal [facility] Comment on above: Performed By: #### C ROSARIO ####[facility] Ndrqikukkh8[address] [place], [place] [address]Dr. Nahed Yañez MYELOCYTE % Normal [facility] Comment on above: Performed By: #### C ROSARIO ####[facility] Ibtbbbdovq4357[address] [place], [place] [address]Dr. Nahed Yañez NRBC Normal [facility] Comment on above: Performed By: #### C ROSARIO ####[facility] Digxyvtgkr5360 [place] [phone]. Nahed Yañez PLT 338 103/ul Normal 150-[address] [facility] Comment on above: Performed By: #### C ROSARIO ####[facility] Rylxqzwhtu[address] [place], [place] [address]Dr. Nahed Yañez RBC 3.76 106/ul Critically low 4.20-5.40 [facility] Comment on above: Performed By: #### C ROSARIO ####[facility] Uvuftlrzrh85[address] [place], [place] [address]Dr. Nahed Yañez RDW 15.3 % Critically high 11.0-15.0 [facility] Comment on above: Performed By: #### C ROSARIO ####[facility] Ytzavitgrb0281 [place] [phone]. Nahed Yañez SEG # 17.91 103/ul Critically high 1.40-6.50 [facility] Comment on above: Performed By: #### C BCMAN ####[facility] Rdyulonzmw9210 [place] [phone]. Nahed Yañez SEG % 90.0 % Critically high 43.0-75.0 [facility] [place] [facility] Comment on above: Performed By: #### C BCMAN ####[facility] Onfxrfephm7568 [place] [phone]. Nahed Otilio WBC 19.9 103/ul Critically high 4.0-11.0 [facility] Comment on above: Performed By: #### C BCMAN ####[facility] Xnlejignbz9972 [place] [address]Dr. Nahed Yañez POINT OF CARE GLUCOSEon 08-12 Glucose [Mass/Vol] 200 mg/dL Critically high 74-106 [facility] Comment on above: Performed By: #### P OCGLUC ####[facility] Jjiuexomky4010 [place] [address]Dr. Nahed Yañez Glucose [Mass/Vol] 131 mg/dL Critically high 74-106 [facility] Comment on above: Performed By: #### P OCGLUC ####[facility] Sfdxdrtaxk2418 [place] [address]Dr. Nahed Otilio Glucose [Mass/Vol] 176 mg/dL Critically high 74-106 [facility] Comment on above: Performed By: #### P OCGLUC ####[facility] Alqsurowuu1365 [place] [address]Dr. Nahed Yañez PROF 14(COMP METB)on 023 Albumin [Mass/Vol] 2.2 g/dL Critically low 3.4-5.0 [facility] Comment on above: Performed By: #### T RAFITA CMP ####[facility] Ovipkbuzbd6140 [place] [address]Dr. Nahed Yañez Albumin/Globulin [Mass ratio] 0.6 {ratio} Normal [facility] Comment on above: Performed By: #### Nydia ELLER, CMP ####[facility] Daadixgvcu5826 [place] [id number]. Nahed Yañez ALP [Catalytic activity/Vol] 101 U/L Normal 46-116 [facility] Comment on above: Performed By: #### Nydia ELLER, CMP ####[facility] Oqcpfxkipn9084 [place] [phone]. Nahed Otilio ALT [Catalytic activity/Vol] 19 U/L Normal 14-59 [facility] Comment on above: Performed By: #### Nydia ELLER, CMP ####[facility] Kxuhpnlnzc8128 [place] [phone]. Rosemarieashley Otilio Anion gap [Moles/Vol] 12.0 mmol/L Normal [facility] Comment on above: Performed By: #### Nydia ELLER CMP ####[facility] Xvheynnwne1319 [place] [address]Dr. Rosemarieashley Yañez AST [Catalytic activity/Vol] 14 U/L Critically low 15-37 [facility] Comment on above: Performed By: #### Nydia ELLER CMP ####[facility] Tqqjqoqxcr3172 [place] [phone]. Nahed Otilio Bilirubin [Mass/Vol] 0.2 mg/dL Normal 0.2-1.0 [facility] Comment on above: Performed By: #### Nydia ELLER, CMP ####[facility] Oxpvcphrec5961 [place] [address]Dr. Nahed Yañez Calcium [Mass/Vol] 9.5 mg/dL Normal 8.5-10.1 [facility] Comment on above: Performed By: #### Nydia ELLER, CMP ####[facility] Qahenvvxln1829 [place] [id number]. Nahed Yañez Chloride [Moles/Vol] 105 mmol/L Normal 98-107 [facility] Comment on above: Performed By: #### Nydia ELLER, CMP ####[facility] Hzapottrzc3092 [place] [id number]. Nahed Yañez CO2 [Moles/Vol] 27.9 mmol/L Normal 21.0-32.0 [facility] Comment on above: Performed By: #### Nydia ELLER CMP ####[facility] Hioaehlgsd3626 [place] [address]Dr. Nahed Yañez Creatinine [Mass/Vol] 1.08 mg/dL Critically high 0.55-1.02 [facility] Comment on above: Performed By: #### Nydia ELLER CMP ####[facility] Lajnmznzlr2387 [place] [address]Dr. Nahed Yañez EGFR-AF OMANI >60 Normal >=60 [facility] Comment on above: Performed By: #### Nydia ELLER CMP ####[facility] Ayfptwmjir[address] [place], [place] [address]Dr. Nahed Yañez EGFR-NON AF OMANI 52 mL/min/1.73m2 Critically low >=60 [facility] Comment on above: Performed By: #### Nydia ELLER CMP ####[facility] Iyqficvuch05[address] [place], [place] [address]Dr. Nahed Yañez Globulin (S) [Mass/Vol] 3.7 g/dL Normal [facility] Comment on above: Performed By: #### Nydia ELLER CMP ####[facility] Wpozmwprmn6560[address] [place], [place] [address]Dr. Nahed Yañez Glucose [Mass/Vol] 182 mg/dL Critically high 74-106 [facility] Comment on above: Performed By: #### Nydia ELLER CMP ####[facility] Lpgqzvnuwn640[address] [place], [place] [address]Dr. Nahed Yañez Potassium [Moles/Vol] 3.9 mmol/L Normal 3.5-5.1 [facility] Comment on above: Performed By: #### Nydia ELLER CMP ####[facility] Akxarxbsxo5557[address] [place], [place] [address]Dr. Nahed Yañez Protein [Mass/Vol] 5.9 g/dL Critically low 6.4-8.2 Th [facility] Comment on above: Performed By: #### Nydia ELLER CMP ####[facility] Pbzdkttqeh805[address] [place], [place] [address]Dr. Nahed Yañez Sodium [Moles/Vol] 141 mmol/L Normal 136-[address] [facility] Comment on above: Performed By: #### Nydia ELLER, CMP ####[facility] Lgrjohdoqx0618[address] [place], [place] [address]Dr. Nahed Yañez Urea nitrogen [Mass/Vol] 20.0 mg/dL Critically high 7.0-18.0 [facility] Comment on above: Performed By: #### Nydia ELLER, CMP ####[facility] Izrtvezrsu877[address] [place], [place] [address]Dr. Nahed Yañez Urea nitrogen/Creatinine [Mass ratio] 18.5 mg/mg Normal [facility] Comment on above: Performed By: #### Nydia ELLER CMP ####[facility] Txagglsicg319[address] [place], [place] [address]Dr. Nahed Yañez THEOPHYLLINEon 08-23-2022 THEOPHYLLINE 22.9 ug/mL Critically high 10.0-20.0 [facility] Comment on above: Performed By: #### Nydia ELLER CMP ####[facility] Luvocqbsfk396[address] [place], [place] [address]Dr. Nahed Yañez CBC AUTO DIFFon 08-22-2022 BASO # 0.0 103/ul Normal 0.0-0.1 [facility] Comment on above: Performed By: #### C BC ####[facility] Icrzvynacu896[address] [place], [place] [address]Dr. Nahed Otilio Basophils/100 WBC (Bld) 0.1 % Critically low 0.2-2.[address] [facility] Comment on above: Performed By: #### C BC ####[facility] Bvwioeklye1938[address] [place], [place] [address]Dr. Nahed Otilio EO # 0.0 103/ul Normal 0.0-0.[address] [facility] Comment on above: Performed By: #### C BC ####[facility] Fgisnakrqp687[address] [place], [place] [address]Dr. Nahed Otilio Eosinophils/100 WBC (Bld) 0.0 % Critically low 0.9-7.0 [facility] Comment on above: Performed By: #### C BC ####[facility] Iecogctaot2011 [place] [address]Dr. Nahed Yañez Erythrocyte distribution width (RBC) [Ratio] 15.1 % Critically high 11.0-15.0 [facility] Comment on above: Performed By: #### C BC ####[facility] Xmybcitmmw5022 [place] [address]Dr. Nahed Yañez Hematocrit (Bld) [Volume fraction] 31.4 % Critically low 36.0-48.0 [facility] Comment on above: Performed By: #### C BC ####[facility] Qbxrzxgvej24[address] [place], [place] [address]Dr. Nahed Yañez Hemoglobin (Bld) [Mass/Vol] 10.2 g/dL Critically low 12.0-16.0 [facility] Comment on above: Performed By: #### C BC ####[facility] Ypjqthhugs762[address] [place], [place] [address]Dr. Nahed Yañez IG # 0.08 10e3/ul Critically high 0.00-0.03 [facility] Comment on above: Performed By: #### C BC ####[facility] Ulpeuxplov278[address] [place], [place] [address]Dr. Nahed Yañez IG % 0.6 % Critically high 0.0-0.5 [facility] [place] [facility] Comment on above: Performed By: #### C BC ####[facility] Ezaekgptxr144[address] [place], [place] [address]Dr. Nahed Yañze LYMPH # 0.9 103/ul Critically low 1.2-3.8 [facility] Comment on above: Performed By: #### C BC ####[facility] Rtwtaolevg77[address] [place], [place] [address]Dr. Nahed Yañez Lymphocytes/100 WBC (Bld) 6.1 % Critically low 20.5-60.0 [facility] Comment on above: Performed By: #### C BC ####[facility] Vendwollmk39[address] [place], [place] [address]Dr. Rosemarieashley Yañez MANUAL DIFF REQ NO Normal [facility] [place] [facility] Comment on above: Performed By: #### C BC ####[facility] Rftmcspavn0500 [place] [phone]. Nahed Yañez MCH (RBC) [Entitic mass] 28.3 pg Normal 26.7-34.0 [facility] Comment on above: Performed By: #### C BC ####[facility] Itnxlzvcws3155 [place] [id number]. Nahed Yañez MCHC (RBC) [Mass/Vol] 32.5 g/dL Normal 29.9-35.2 [facility] Comment on above: Performed By: #### C BC ####[facility] Ikrsssmdbz8752 [place] [address]Dr. Nahed Otilio MCV (RBC) [Entitic vol] 87.0 fL Normal 81.0-99.0 [facility] Comment on above: Performed By: #### C BC ####[facility] R[address]qhxwjqud9[address] [place], [place] [address]Dr. aNhed Otilio MONO # 0.7 103/ul Normal 0.3-0.8 [facility] Comment on above: Performed By: #### C BC ####[facility] Tdtgyhmons[address] [place], [place] [address]Dr. Nahed Otilio Monocytes/100 WBC (Bld) 5.1 % Normal 1.7-12.0 [facility] Comment on above: Performed By: #### C BC ####[facility] Zdaoxffqpx9[address] [place] [address]Dr. Nahed Yañez NEUT # 12.2 103/ul Critically high 1.4-6.5 [facility] Comment on above: Performed By: #### C BC ####[facility] Lqkxbbjeln[address] [place], [place] [id number] Rosemarieashley Yañez Neutrophils/100 WBC (Bld) 88.1 % Critically high 43.0-75.0 [facility] Comment on above: Performed By: #### C BC ####[facility] Hqjmjovmve[address] [place], [place] [address]DrShaun Rosemarieashley Yañez Platelet mean volume (Bld) [Entitic vol] 10.2 fL Normal 9.5-13.5 [facility] Comment on above: Performed By: #### C BC ####[facility] Kqgpkimasq2690 [place] [id number]. Nahed Yañez PLT 271 103/ul Normal 150-450 [facility] Comment on above: Performed By: #### C BC ####[facility] Lsqhkwvimr9935 [place] [id number]. Nahed Yañez RBC 3.61 106/ul Critically low 4.20-5.40 [facility] Comment on above: Performed By: #### C BC ####[facility] Ajfmaervns9687 [place] [phone]. Nahed Yañez WBC 13.9 103/ul Critically high 4.0-11.0 [facility] Comment on above: Performed By: #### C BC ####[facility] Rkjzhmhjte0094 [place] [phone]. Nahed Yañez CULTURE URINEon 08-22-2022 CULTURE URINE Culture Observations : LIGHT GROWTH OF MIXED GENITAL MIGUEL. NO POTENTIAL PATHOGENS SEEN. Normal [facility] Comment on above: Performed By: #### U RCX ####[facility] Kvjozxmfsh[address] [place], [place] [address]Dr. Nahed Yañez POINT OF CARE GLUCOSEon 08-12 Glucose [Mass/Vol] 252 mg/dL Critically high 74-106 [facility] Comment on above: Performed By: #### P OCGLUC ####[facility] Gllgitzxdr9341 [place] [id number]. Nahed Yañez Glucose [Mass/Vol] 293 mg/dL Critically high 74-106 [facility] Comment on above: Performed By: #### P OCGLUC ####[facility] Dyyeuxhwsk[address] [place], [place] [address]Dr. Nahed Yañez Glucose [Mass/Vol] 292 mg/dL Critically high 74-106 [facility] Comment on above: Performed By: #### P OCGLUC ####[facility] Dswriogawx01[address] [place], [place] [address]DrShaun Yañez PROF 14(COMP METB)on 023 Albumin [Mass/Vol] 2.1 g/dL Critically low 3.4-5.0 [facility] Comment on above: Performed By: #### C MP ####[facility] Ypslaihtqd3525 [place] [address]Dr. Nahed Yañez Albumin/Globulin [Mass ratio] 0.5 {ratio} Normal [facility] Comment on above: Performed By: #### C MP ####[facility] Rfkxpvnmus063[address] [place], [place] [address]Dr. Nahed Yañez ALP [Catalytic activity/Vol] 92 U/L Normal 46-116 [facility] Comment on above: Performed By: #### C MP ####[facility] Mtnbbhgpso675[address] [place], [place] [address]Dr. Nahed Yañez ALT [Catalytic activity/Vol] 19 U/L Normal 14-59 [facility] Comment on above: Performed By: #### C MP ####[facility] Wfqxdfvfns1916[address] [place], [place] [address]Dr. Nahed Yañez Anion gap [Moles/Vol] 15.9 mmol/L Normal [facility] Comment on above: Performed By: #### C MP ####[facility] Uklrxndbjg000[address] [place], [place] [address]Dr. Nahed Yañez AST [Catalytic activity/Vol] 8 U/L Critically low 15-37 [facility] Comment on above: Performed By: #### C MP ####[facility] Jmmmdsdfcz7023[address] [place], [place] [address]Dr. Nahed Yañez Bilirubin [Mass/Vol] 0.3 mg/dL Normal 0.2-1.0 [facility] Comment on above: Performed By: #### C MP ####[facility] Ursshlylei8220[address] [place], [place] [address]Dr. Nahed Yañez Calcium [Mass/Vol] 9.4 mg/dL Normal 8.5-10.1 [facility] Comment on above: Performed By: #### C MP ####[facility] Bwqpagqbfi6857[address] [place], [place] [address]Dr. Nahed Yañez Chloride [Moles/Vol] 101 mmol/L Normal 98-[address] [facility] Comment on above: Performed By: #### C MP ####[facility] Nnshirjoxb0891 [place] [address]Dr. Nahed Otilio CO2 [Moles/Vol] 22.5 mmol/L Normal 21.0-32.0 [facility] Comment on above: Performed By: #### C MP ####[facility] Fojepvajim418[address] [place], [place] [address]Dr. Nahed Otilio Creatinine [Mass/Vol] 1.16 mg/dL Critically high 0.55-1.02 [facility] Comment on above: Performed By: #### C MP ####[facility] Jlwikyoaug337[address] [place], [place] [address]Dr. Nahed Yañez EGFR-AF OMANI 58 mL/min/1.73m2 Critically low >=60 [facility] Comment on above: Performed By: #### C MP ####[facility] Perkqbwtjt823[address] [place], [place] [address]Dr. Nahed Otilio EGFR-NON AF OMANI 47 mL/min/1.73m2 Critically low >=[address] [facility] Comment on above: Performed By: #### C MP ####[facility] Mfaqjmpxxs4045[address] [place], [place] [address]Dr. Nahed Yañez Globulin (S) [Mass/Vol] 4.2 g/dL Normal [facility] Comment on above: Performed By: #### C MP ####[facility] Tqtbfpexkz7911[address] [place], [place] [address]Dr. Nahed Yañez Glucose [Mass/Vol] 409 mg/dL Critically high 74-106 [facility] Comment on above: Performed By: #### C MP ####[facility] Svdixhojci686[address] [place], [place] [address]Dr. Nahed Yañez Potassium [Moles/Vol] 3.4 mmol/L Critically low 3.5-5.1 [facility] Comment on above: Performed By: #### C MP ####[facility] Xxqhvzqyao8022[address] [place], [place] [address]Dr. Nahed Yañez Protein [Mass/Vol] 6.3 g/dL Critically low 6.4-8.[address] [facility] Comment on above: Performed By: #### C MP ####[facility] Eswlduxesv264[address] [place], [place] [address]Dr. Nahed Yañez Sodium [Moles/Vol] 136 mmol/L Normal 136-145 [facility] Comment on above: Performed By: #### C MP ####[facility] Soqolomwat1189[address] [place], [place] [address]Dr. Nahed Yañez Urea nitrogen [Mass/Vol] 16.0 mg/dL Normal 7.0-18.0 [facility] Comment on above: Performed By: #### C MP ####[facility] Ozkrgytdqp424389 [address] [place], [place] [address]Dr. Nahed Yañez Urea nitrogen/Creatinine [Mass ratio] 13.8 mg/mg Normal [facility] Comment on above: Performed By: #### C MP ####[facility] Iixwzxpycs9360[address] [place], [place] [address]Dr. Nahed Yañez THEOPHYLLINEon 08-22-2022 THEOPHYLLINE 13.4 ug/mL Normal 10.0-20.0 [facility] Comment on above: Performed By: #### T RAFITA ####[facility] Xwgccqqxad8117[address] [place], [place] [address]Dr. Nahed Yañez UA RANDOM W/MICROSCOPICon BACTERIA NONE SEEN Normal NONE SEEN [facility] Comment on above: Performed By: #### U AMIC ####[facility] Hlzoclvxmx7845[address] [place], [place] [address]Dr. Nahed Yañez Bilirubin Ql (U) Negative Normal NEGATIVE [facility] Comment on above: Performed By: #### U AMIC ####[facility] Yovlzbpbrd4900[address] [place], [place] [address]Dr. Nahed Yañez CAST NONE SEEN Normal NONE SEEN [facility] Comment on above: Performed By: #### U AMIC ####[facility] Qevwmiexww552[address] [place], [place] [address]Dr. Nahed Yañez Clarity (U) CLEAR Normal CLEAR [facility] Comment on above: Performed By: #### U AMIC ####[facility] Uccsixfamo4055 [place] [address]Dr. Nahed Yañez Color (U) LT. YELLOW Normal YELLOW [facility] Comment on above: Performed By: #### U AMIC ####[facility] Qzwatdjuiq2018 [place] [phone]. Nahed Yañez Crystals LM Nom (Urine sed) NONE SEEN Normal NONE SEEN [facility] Comment on above: Performed By: #### U AMIC ####[facility] Hvfdbawmaq1881 [place] [address]Dr. Nahed Yañez Epithelial cells LM Ql (Urine sed) RARE Normal NONE SEEN /RARE [facility] Comment on above: Performed By: #### U AMIC ####[facility] Xkjfezkjln4370 [place] [address]Dr. Nahed Yañez Glucose Ql (U) 100 mg/dl Abnormal NEGATIVE [facility] Comment on above: Performed By: #### U AMIC ####[facility] Rbjmcrmcns1187[address] [place], [place] [address]Dr. Yiashley Yañez Hemoglobin Ql (U) Negative Normal NEGATIVE [facility] Comment on above: Performed By: #### U AMIC ####[facility] Hxovcmrnrz7675[address] [place], [place] [address]Dr. Yiashley Yañez Ketones Ql (U) Negative Normal NEGATIVE [facility] Comment on above: Performed By: #### U AMIC ####[facility] Kuczhhwikt556[address] [place], [place] [address]Dr. Yilan Yañez LEUKOCYTES Negative Normal NEGATIVE [facility] Comment on above: Performed By: #### U AMIC ####[facility] Bdrvloqggw2296 [place] [address]Dr. Yilan Yañez MUCOUS NONE SEEN Normal NONE SEEN [facility] Comment on above: Performed By: #### U AMIC ####[facility] Uxqmrjhucq8047 [place] [address]Dr. Yilan Yañez Nitrite Ql (U) Negative Normal NEGATIVE [facility] Comment on above: Performed By: #### U AMIC ####[facility] Aolpqfkjxa7655 [place] [address]Dr. Nahed Yañez pH (U) 5.5 [pH] Normal 5-[address] [facility] Comment on above: Performed By: #### U AMIC ####[facility] Yebqsromcd6652 [place] [address]Dr. Nahed Yañez RBC NONE SEEN Abnormal 0-[address] [facility] Comment on above: Performed By: #### U AMIC ####[facility] Npludurmti1370 [place] [address]Dr. Nahed Yañez SPEC GRAVITY 1.020 Normal 1.005-<=1.[address] [facility] Comment on above: Performed By: #### U AMIC ####[facility] Hjldbdxgpk[address] [place], [place] [address]Dr. Nahed Yañez UA PROTEIN Negative Normal NEGATIVE/ TRACE [facility] Comment on above: Performed By: #### U AMIC ####[facility] Wdquvlnris587[address] [place], [place] [address]Dr. Nahed Yañez Urobilinogen Qn (U) 0.2 {Alem'U}/dL Normal 0.2 - 1. [address] [facility] Comment on above: Performed By: #### U AMIC ####[facility] Hebsyyyppy8379[address] [place], [place] [address]Dr. Nahed Yañez WBC NONE SEEN Normal NONE SEEN [facility] Comment on above: Performed By: #### U AMIC ####[facility] Ixakefdfel0055[address] [place], [place] [address]Dr. Nahed Yañez BLOOD GASES BTYon 08-21-2022 02 MODE ROOM AIR Normal [facility] Comment on above: Performed By: #### A BG ####[facility] Uvzdzzyxgq239[address] [place], [place] [address]Dr. Nahed Yañez ALLENS TEST Positive Normal [facility] Comment on above: Performed By: #### A BG ####[facility] Btbsahdpvn5599[address] [place], [place] [address]Dr. Nahed Yañez Base excess Calc (Bld) [Moles/Vol] 3.2 mmol/L Critically high -2.0-2.[address] [facility] Comment on above: Performed By: #### A BG ####[facility] Nitlbughii8790 [place] [address]Dr. Nahed Yañez BIPAP PRESSURE Normal [facility] Comment on above: Performed By: #### A BG ####[facility] Knhgcolibc4395 [place] [address]Dr. Nahed Yañez CPAP Normal [facility] Comment on above: Performed By: #### A BG ####[facility] Rgtqhgwopn8312[address] [place], [place] [address]Dr. Nahed Yañez FIO2 Normal [facility] Comment on above: Performed By: #### A BG ####[facility] Gzytwlugcc0315[address] [place], [place] [address]Dr. Nahed Yañez HCO3 (Bld) [Moles/Vol] 26.8 mmol/L Critically high 22.0-26 .[address] [facility] Comment on above: Performed By: #### A BG ####[facility] Tbrfrjmuug78[address] [place], [place] [address]Dr. Nahed Yañez LPM Normal [facility] Comment on above: Performed By: #### A BG ####[facility] Zqdjgwodwa764[address] [place], [place] [address]Dr. Nahed Yañez MINUTE VOLUME Normal [facility] Comment on above: Performed By: #### A BG ####[facility] Jsviaktvel3570[address] [place], [place] [address]Dr. Nahed Yañez Oxygen (Bld) [Partial pressure] 55.1 mm[Hg] Critically low 80.0-100.[address] [facility] Comment on above: Performed By: #### A BG ####[facility] Piovpemyhn654[address] [place], [place] [address]Dr. Nahed Yañez Oxygen saturation in Blood 90.2 % Critically low 95.0-100.[address] [facility] Comment on above: Performed By: #### A BG ####[facility] Cabkuzcqum415[address] [place], [place] [address]Dr. Nahed Yañez PCO2 36.7 mmHg Normal 35.0-45.0 [facility] Comment on above: Performed By: #### A BG ####[facility] Ashifduqbi0877 [place] [address]Dr. Nahed Yañez PEEP [facility] Comment on above: Performed By: #### A BG ####[facility] Soaxtzoiku1998 [place] [address]Dr. Nahed Yañez pH (Bld) 7.472 [pH] Critically high 7.350-7.450 [facility] Comment on above: Performed By: #### A BG ####[facility] Xbdugvdexh7712 [place] [address]Dr. Nahed Yañez PIP [facility] Comment on above: Performed By: #### A BG ####[facility] Xqjkynuret4970[address] [place], [place] [address]Dr. Nahed Yañez PS [facility] Comment on above: Performed By: #### A BG ####[facility] Rxnijskjwd525[address] [place], [place] [address]Dr. Nahed Yañez PUNCTURE SITE LR Normal [facility] Comment on above: Performed By: #### A BG ####[facility] Yckvbptams722[address] [place], [place] [address]Dr. Nahed Yañez RATE [facility] Comment on above: Performed By: #### A BG ####[facility] Bmlzwgrvgl412[address] [place], [place] [address]Dr. Nahed Yañez VENT MODE [facility] Comment on above: Performed By: #### A BG ####[facility] Hbiekhwreb7297 [place] [address]Dr. Nahed Yañez VT [facility] Comment on above: Performed By: #### A BG ####[facility] Krroqolcoo6412[address] [place], [place] [address]Dr. Nahed Yañez BNPon 08-21-2022 Natriuretic peptide B (Bld) [Mass/Vol] 131.0 pg/mL Normal <=900.0 [facility] Comment on above: Performed By: #### B COMMUNITY DEVELOPMENT WORKER ####[facility] Fqfqqwxqkv9854 [place] [phone]. Nahed Yañez CARDIAC FRANCISCO 3-6on 3 CK [Catalytic activity/Vol] 17 U/L Critically low 26-[address] [facility] Comment on above: Performed By: #### C MREP ####[facility] Lfukvagdmq2801 [place] [phone]. Nahed Yañez CK.MB [Mass/Vol] ng/mL Normal <=3.60 [facility] Comment on above: Performed By: #### C MREP ####[facility] Tjxpzhnhbg[address] [place], [place] [address]Dr. Nahed Yañez HSTROP 25.1 pg/mL Normal 4.0-51.[address] [facility] Comment on above: Result Comment: CUT- OFF POINTS HAVE BEEN ESTABLISHED BASED ON THE FOURTH UNIVERSAL DEFINITIONS OF MYOCARDIALINFARCTION. THE UPPER REFERENCE LIMIT (URL) OF TROPONIN, DEFINED THE 99TH PERCENTILE OFcTnI DISTRIBUTION IN A REFERENCE POPULATION, HAS BEEN CONFIRMED THE DECISION THRESHOLDFOR [place] DIAGNOSIS. Performed By: #### C MREP ####[facility] Xqrhubeplg[address] [place], [place] [address]Dr. Nahed Yañez CARDIAC FRANCISCO ADMITon 023 CK [Catalytic activity/Vol] 39 U/L Normal 26-[address] [facility] Comment on above: Performed By: #### ERICK Ordonez MP ####[facility] Oeoisonxgx1922 [place] [phone]. Nahed Yañez CK.MB [Mass/Vol] ng/mL Normal <=3.60 [facility] Comment on above: Performed By: #### B RENZO, CMADM ####[facility] Okngqsobsk1005 [place] [phone]. Nahed Yañez HSTROP 24.4 pg/mL Normal 4.0-51.[address] [facility] Comment on above: Result Comment: CUT- OFF POINTS HAVE BEEN ESTABLISHED BASED ON THE FOURTH UNIVERSAL DEFINITIONS OF MYOCARDIALINFARCTION. THE UPPER REFERENCE LIMIT (URL) OF TROPONIN, DEFINED THE 99TH PERCENTILE OFcTnI DISTRIBUTION IN A REFERENCE POPULATION, HAS BEEN CONFIRMED THE DECISION THRESHOLDFOR [place] DIAGNOSIS. Performed By: #### B RENZO CMADM ####[facility] Mogoqdkalv6614 [place] [phone]. Nahed Otilio ANDRE 48 ng/mL Normal 9-[address] [facility] Comment on above: Performed By: #### B ERICK MULLER ####[facility] Nosullddny7532 [place] [phone]. Nahed Yañez CBC AUTO DIFFon 08-21-2022 BASO # 0.0 103/ul Normal 0.0-0.[address] [facility] Comment on above: Performed By: #### C BC ####[facility] Szmioyaumo97[address] [place], [place] [address]Dr. Nahed Yañez Basophils/100 WBC (Bld) 0.2 % Normal 0.2-2.[address] [facility] Comment on above: Performed By: #### C BC ####[facility] Bexpbgnkki9465[address] [place], [place] [address]Dr. Nahed Yañez EO # 0.3 103/ul Normal 0.0-0.[address] [facility] Comment on above: Performed By: #### C BC ####[facility] Zikslcfgtm775[address] [place], [place] [address]Dr. Nahed Yañez Eosinophils/100 WBC (Bld) 1.5 % Normal 0.9-7.[address] [facility] Comment on above: Performed By: #### C BC ####[facility] Nptduveisg9629[address] [place], [place] [address]Dr. Nahed Yañez Erythrocyte distribution width (RBC) [Ratio] 15.0 % Normal 11.0-15.[address] [facility] Comment on above: Performed By: #### C BC ####[facility] Czagwkhrow[address] [place], [place] [address]Dr. Nahed Yañez Hematocrit (Bld) [Volume fraction] 41.4 % Normal 36.0-48.[address] [facility] Comment on above: Performed By: #### C BC ####[facility] Ohwrypscft10[address] [place], [place] [address]Dr. Nahed Yañez Hemoglobin (Bld) [Mass/Vol] 13.5 g/dL Normal 12.0-16.[address] [facility] Comment on above: Performed By: #### C BC ####[facility] Ylgndbbvzt6914 [place] [phone]. Nahed Yañez IG # 0.18 10e3/ul Critically high 0.00-0.03 [facility] Comment on above: Performed By: #### C BC ####[facility] Gxustvbyra1118 [place] [phone]. Nahed Yañez IG % 1.0 % Critically high 0.0-0.5 [facility] Comment on above: Performed By: #### C BC ####[facility] Grwpcqnpyk3078 [place] [address]Dr. Nahed Yañez LYMPH # 2.5 103/ul Normal 1.2-3.[address] [facility] Comment on above: Performed By: #### C BC ####[facility] Deqzzmhrxt0260 [place] [address]Dr. Nahed Yañez Lymphocytes/100 WBC (Bld) 14.0 % Critically low 20.5-60.0 [facility] Comment on above: Performed By: #### C BC ####[facility] Ygilxqzzkf5288 [place] [phone] Yañez MANUAL DIFF REQ NO Normal [facility] Comment on above: Performed By: #### C BC ####[facility] Zhdtbxyrfr7459 [place] [phone]. Nahed Yañez MCH (RBC) [Entitic mass] 28.5 pg Normal 26.7-34.0 [facility] Comment on above: Performed By: #### C BC ####[facility] Oetpvsytns0885 [place] [phone]. Rosemarieashley Yañez MCHC (RBC) [Mass/Vol] 32.6 g/dL Normal 29.9-35.[address] [facility] Comment on above: Performed By: #### C BC ####[facility] Nzbfylpnju7486 [place] [phone]. Nahed Yañez MCV (RBC) [Entitic vol] 87.3 fL Normal 81.0-99.0 [facility] Comment on above: Performed By: #### C BC ####[facility] Hhgslsnjwz4946 [place] [phone]. Nahed Yañez MONO # 1.2 103/ul Critically high 0.3-0.8 [facility] Comment on above: Performed By: #### C BC ####[facility] Qerxoibmlf5792 [place] [phone]. Nahed Yañez Monocytes/100 WBC (Bld) 6.8 % Normal 1.7-12.[address] [facility] Comment on above: Performed By: #### C BC ####[facility] Qhrvexcbzm5939 [place] [phone]. Nahed Yañez NEUT # 13.8 103/ul Critically high 1.4-6.5 [facility] Comment on above: Performed By: #### C BC ####[facility] Lkntnrophv1794 [place] [address]Dr. Nahed Yañez Neutrophils/100 WBC (Bld) 76.5 % Critically high 43.0-75.[address] [facility] Comment on above: Performed By: #### C BC ####[facility] Shzhktwcep3133 [place] [address]Dr. Nahed Yañez Platelet mean volume (Bld) [Entitic vol] 10.5 fL Normal 9.5-13.[address] [facility] Comment on above: Performed By: #### C BC ####[facility] Jyokaidmee4757 [place] [phone]. Nahed Yañez PLT 319 103/ul Normal 150-[address] [facility] Comment on above: Performed By: #### C BC ####[facility] Njarrwuntl[address] [place], [place] [address]Dr. Nahed Yañez RBC 4.74 106/ul Normal 4.20-5.[address] [facility] Comment on above: Performed By: #### C BC ####[facility] Codztnvjau6553 [place] [phone]. Nahed Yañez WBC 18.0 103/ul Critically high 4.0-11.0 [facility] Comment on above: Performed By: #### C BC ####[facility] Rrtwnseihn6551 [place] [phone]. Nahed Yañez CULTURE BLOODon 08-21-2022 Microscopic examination of blood, culture Culture Observations: NO GROWTH AT 5 DAYS. Normal [facility] Comment on above: Performed By: #### B LDCX2 ####[facility] Uizsymajiq9634 [place] [phone]. Nahed Yañez Microscopic examination of blood, culture Culture Observations: NO GROWTH AT 5 DAYS. Normal [facility] Comment on above: Performed By: #### B LDCX1 ####[facility] Aaagnkutrn4552 [place] [phone]. Nahed Yañez [facility]on [facility]-12 SARS-CoV-2 (COVID-19) RNA MIRNA+probe Ql (Unsp spec) Not detected Normal NOT DETECTED [facility] Comment on above: Result Comment: When [...] for this test is supported by the [place] [employer] and [employer] Service's declaration that [...] be used). Performed By: #### C VDTBH ####[facility] Byhjetdzho8484 [place] [phone]. Nahed Yañez LACTATE/LACTIC ACIDon 2022 Lactate [Moles/Vol] 1.1 mmol/L Normal 0.4-2.0 [facility] Comment on above: Performed By: #### L ACT ####[facility] Bkcrtbetrk0771 [place] [address]Dr. Nahed Yañez Lactate [Moles/Vol] 2.4 mmol/L Critically high 0.4-2.0 [facility] Comment on above: Performed By: #### L ACT ####[facility] Abtczcvnke5326 [place] [address]Dr. Nahed Yañez POINT OF CARE GLUCOSEon 08-12 Glucose [Mass/Vol] 453 mg/dL Critically high 74-106 [facility] Comment on above: Performed By: #### P OCGLUC ####[facility] Ijhfjxmgpv059[address] [place], [place] [address]Dr. Nahed Yañez Glucose [Mass/Vol] 358 mg/dL Critically high 74-106 [facility] Comment on above: Performed By: #### P OCGLUC ####[facility] Awvdxzptjp78[address] [place], [place] [address]Dr. Nahed Yañez Glucose [Mass/Vol] 98 mg/dL Normal 74-106 [facility] Comment on above: Performed By: #### P OCGLUC ####[facility] Gyyeqtwijr718[address] [place], [place] [address]Dr. Nahed Yañez PROF CHEM 8 (BAS METB)on Anion gap [Moles/Vol] 14.7 mmol/L Normal [facility] Comment on above: Performed By: #### B MP, CMADM ####[facility] Qhmpmuieyy79[address] [place], [place] [address]Dr. Nahed Yañez Calcium [Mass/Vol] 9.6 mg/dL Normal 8.5-10.1 [facility] Comment on above: Performed By: #### B MP, CMADM ####[facility] Duqtnbvpbj7[address] [place], [place] [address]Dr. Nahed Yañez Chloride [Moles/Vol] 95 mmol/L Critically low 98-107 [facility] Comment on above: Performed By: #### B MP, CMADM ####[facility] [facility] [address] [place], [place] [address]Dr. Nahed Yañez CO2 [Moles/Vol] 25.2 mmol/L Normal 21.0-32.0 [facility] Comment on above: Performed By: #### ERICK Ordonez MP ####[facility] [address] [place] [address]Dr. Nahed Yañez Creatinine [Mass/Vol] 1.15 mg/dL Critically high 0.55-1.02 [facility] Comment on above: Performed By: #### ERICK Ordonez MP ####[facility] [address] [place], [place] [address]Dr. Nahed Yañez EGFR-AF OMANI 58 mL/min/1.73m2 Critically low >=60 [facility] Comment on above: Performed By: #### ERICK Ordonez MP ####[facility] [address] [place], [place] [address]Dr. Nahed Yañez EGFR-NON AF OMANI 48 mL/min/1.73m2 Critically low >=60 [facility] Comment on above: Performed By: #### ERICK Ordonez MP ####[facility] [address] [place], [place] [address]Dr. Nahed Yañez Glucose [Mass/Vol] 191 mg/dL Critically high 74-106 T [facility] Comment on above: Performed By: #### ERICK Ordonez MP ####[facility] [address] [place], [place] [address]Dr. Nahed Yañez Potassium [Moles/Vol] 3.9 mmol/L Normal 3.5-5.1 [facility] Comment on above: Performed By: #### ERICK Ordonez MP ####[facility] [address] [place], [place] [address]Dr. Nahed Yañez Sodium [Moles/Vol] 131 mmol/L Critically low 136-145 Th [facility] Comment on above: Performed By: #### ERICK Ordonez MP ####[facility] [address] [place], [place] [address]Dr. Rosemarieashley Yañez Urea nitrogen [Mass/Vol] 15.0 mg/dL Normal 7.0-18.0 [facility] Comment on above: Performed By: #### ERICK Ordonez MP ####[facility] [address] [place], [place] [address]Py. Nahed Yañez Urea nitrogen/Creatinine [Mass ratio] 13.0 mg/mg Normal [facility] Comment on above: Performed By: #### B RENZO, CMADM ####[facility] [address] [place], [place] [address]Nw. Nahed Yañez XR CHEST 2 Von 08-21-2022 XR CHEST [address] [facility] Coding Summary.on 08-11-2022 Coding Summary. CD:[id number] W w+PGhlYWQ+SV7TENCyO33 wpZHkrF0pV5YKZXnZXwyr AWFPKYxKPcZxmaHqEW8uk XNjZXJu IC8+IS6dQHFhEdeiwYWpi 3T7sZK4H23dlj3sXTxvfX P5GBRcEeEarcfbv5ezjYd 6IDcuNmluOyBt RZSggD98XTR0lC99Gc91w NQksBOaq7wpbPj1EjDePY TpUKK7uEefXPthv9XkEFJ hL25coOCzo4C1 CYCxtEwqlDVjHfZfrTM5n A3wBVterwlgh1xndieuFq m0ai95sVRfg7S3eAV9O9F wcgC0CGKwzXMb RfyztQZApB8aqybaz2axq zyiJrMrDLCdVDr2QBm2CO FqqNviZkThLP83XIE6ZWM vjuDpZ5PjWQAt bBxsIbO0x8Y7My6ZW7JZE teqC4LAAZZZBDfjySY+PC 28qm04X9AwHmdcOky0ZIY mTAG5rEN0aF5h TGPkWFnrg6K6xDK9R8Qrr qSkme6id0swTZGcPCnrU0 5moOIxa8B7YSSvyGE2GMV nlMwdNfNqoC45 Oyc+IKMdhJlou9KcQbfvo 7urh8celOc2IlqsWKTjkb BcnIwgCNK6w9ZbBd6xRYU jwKS1jTD7dB8h SuPoRvW7EFtxY986OiVhr YCeClzhE60bD0QudMB+PH BuLgf9IXJczYcrQP5oH9E hZGRpbmctbGVm eRweDZ4zLGQuymqgUIAgj W4sNVJyX5s0SzGoRzC6TK rjU0SdAAUmrsrrDn67vW1 sPgAcVlP8YKgl A8MjmgJ6LLCcmBBnBNzkM RS4U12mb8V7YZUpBDXqFR T9wOI9jQ2zqCxwcwwxuVD mdDsgdmVydGlj GLkuEAhqV240PEWquSzpT kNvZGluZyBEYXRlOiAgMD MvMzEvMjAyMzwvdGQ+PHR oKWH3sVupONAv oTBxKUcnFy6vyZbghHtrT C5xEZMzzacxASLphL7iPK SrdIMpdHlwUG2lXYLrfim pk097XsRwSVO4 PHGmrNVmO5GnjM3bQrOcX LWzVOCtK6EfhIKlHOkjQ9 81IHapJyW7ICYhzeOfO4P sLWFsaWduOiB0 o4F8Eq1Kv9MxqriqN4Sns BSsRuEyFwndQCe4H4JrCx wvdHI+HL18FCUkAC62YLs 4QLC3zOnsBFsr DNVbD6VhwO6vNeFwTQVrA GRkOyc+PHRhYmxlIHdpZH RoPScxMDAlJyBzdHlsZT0 rYs5sURTdIPWj gAjseJOmBgTzk1dnQZKkY BvnLR5zfWcgU0ZvzAI4KO Mqa2d1Fq36X42pF5XaqCD +DFTesJL1dJJ7 oS5yDlJmLaA9YOazS360R tXaxYPeAysjm2lck2ptkI y9OhN7IXChteDuiPzsTCY 2p6McEa88F72s IHdpZHRoPSIxNSUiIHZhb Ypbey4bsX5yHe1+PGNvbC U7fTR4kP8zAfFlBmF4JIb jR090CoCbpHBv Gwqqf1xgk4srrNa6VvKqR DJkhwBivVjyEJF9y6HkPe 22L8PhtFhuc1UeNtf7tz7 0gBRoo6A6wDV4 K2XtWTDyplvrsYQxwZazO G5eCPFbwabpWKSphM2sOU TwN9z7RyMvKxB9XKbsL5E qqaI6KXLtvSRr HSBtdWMNxJ9gegfcy8vxe isaRlXqJCCvNDq9WTp6DJ WffMnpDyHlSQP0HhT2FTQ 1gKOnnF0baOqi gfmwkT1wXui+XDQ3wQZiq IPONR1wPpyxnNI+PHRkIH C1uPfeGNbnSIIytE7xNIX uX9q2JwSaQuV6 XTmwS0IunjH6XBUzzVTcV YNvjCGVvB2afioxa6fbhp ddZtPrHLTnTWn9PFe4ZKM saWduOiBsZWZ0 YrD3PKQ7sHKcqC9jtKpaw wyefO2vVzs+QmlydGggRG P5GNh7R7UjClm4NOVwuTj cYD1wsFPrHFop Px4lqRijfMxeXV6xZDRci syfb022DbQxd9bfEDQjcQ YxPHwuSAN8K03tn6D7HVS dNURuIRO4dUL7 lX2jaBqotajjqJKrhGjgp hQjtQcgJUrbNFqwZ026VT GknTgrHjIfEUu6L6MpJve 6WPAiaEmqME6w xUVpARrdGr5hpHghzBhrK Y7xXENejuayr207DpUfr6 ezXMPvdVHoWUbhYXH4U16 hx0U8FEHuIQKl GWR7zMN0sC2hmCbduadte GVmdDsgdmVydGljYWwtYW qiX405BZXhrYxeZyJroPq 2O1VhNsh9GFBs cNqeOG9ywOVwJTlaBg5rj GtksDimVC9yQYGwatcvt6 23CuRin8ubNUBmhHDbMWm cALS2Z89ik5Y8 XGGwOQSkVWO6mIE0sB2kz GlnbjogbGVmdDsgdmVydG vxGAhzMSstW354BXSsnOp nPlBhdGllbnQg VGshCOf7X1IkVjfrvQW+P U30GENvQY61nBFleSWnx0 hrnFr6XgFhGBVsNFF5hHo cNIqlc9NkOQBb X05gaHYaj7I8DJJvcZigr WHoEiIckTI8lC6wBSwnyb wgk3imxjxpYmuks2rafr6 1rV18I53rZTlc ZHRoPSIzMCUiIHZhbGlnb i4njX4jLq0+VDIirXK0lM V7uZ2iLVQlTgW9HPftI35 9InRvcCIvPjxj t9svr5cnhZm2FyE6QCZqg dSkiUcnSGL5m8GaTg63U9 9sIHdpZHRoPSIyMCUiIHZ ybNlilc7mrC5g Ii8+UTOuuAR9vQF1uP9hF rBuWwS8AUlqJ412YeIpkP KmHeviO85hE8JjkJP+PHR rEae5HSVkhNat FV5lrAUwYAudKt9rMRO5Y bAzWhIqDOliM0FgILPvvc zncioooRQ8TSQwIDKvnT2 0Pz0rnCtmASAz aHDNbF3pyzest0xuccodL oJxNMQwKMu5SOg0AKUcuA csQaClVOC4RtJ0WOA4qAL ekE1taWcawfzd pM5iH6FbACCiurawXy05a T4zFxLrYaQ6DUocNzq+TU MUZO8BEUYFCRPUYCG4D5W iHax5RASfgFmp ND8ogHSnIUapZn2zvDrhx TvsJI9qLWQfroilEZLtyP 3zRUSajJPksEumMV5qOAU qwztph390BpGl DMT4NVJwcFJoR2SmmH2lW tQlURZrEFJlJ8DjwEQvGA hrM366FAewKoJ3QMBaomE qH2ZxUXLfnYye LiE8l2Q3Hs9xGX5eYC9hZ WQaXX46VV79tUGjs6M9qT E2W2PjWZLcpifpwnexvYJ 0EKIjJSUwaJ49 wHHuXOtlBx5um9S4o044E KYeVNZcuK22Aa9jkPadUE EclFMKqB7moafjn7hjixc gIzAwMDAwMDt0 ODg8CLMgxXtyJuOdMDZ2G vA3PVB1rAJkbW0gcQxpek hheL0gYzn+NjEgWWVhcnM 9T8JcMuv1BNUh eBffTP0dhSRjOYsuHo8ec EoclDntJF8tHKDlxjmfRZ XjjA7gLQOcdXUtdWpiDA7 iIUJeanalc030 PpMbBOX9HJKfrCLjA0Sgq V8xZfMzOBIzMSGcY1MiqI EnBOogI332ARyyDwD5NST pgxKmX2PrNUGx dPedXmA8y3N8Lw0TED7fi FP6N7FiHcu3TDIuhFdmKO 5zoWNcIXjpOg0ydLboqUo sYO7gZFCszaka PYDdsZ2aXOZprBLfeUgoR O1lXRAjtuuwl975XmBdCB T7WDXcuASlM6JivR8cIvE xYGPiNPYyC4Xb jXJkYBuxA906YDzuHhA1C HOeeePgT8NbKIXymPtpAr E6i8I7Bc4RpUWoC1CsK1f 2R8DnHssfjFD+ MM87WQXkUQ63iHDewNGsn 5nmzRz0QkXoCIOrALN2dQ uhVDosr8UrCEGaX58nnYS yy4T7IKBjpQkp yYRhWhIveGD8zH7pGPpcz bnlg2nptbieSptbx0mhoj 40tU34A27vBQmdMNSxSXW zMCUiIHZhbGln ya1lzR8iOo7+TDMyhFY5c DA9oK5wDdUhScT6MXsvW7 32UoTtoGYpGggnj6nqb1v uaOr1FcWsFBMi fjDruFjxQOZ9s0IqTs21V 29sIHdpZHRoPSIyMCUiIH FerCwien4xcP4jUc8+PC9 xj0fxzx01zH40 dHI+SVVnYTS2sAseQHxtS XLabB1iDPkuYyV6VKZcHb GjkH38nOAoWBxgSl4beWh fnZtlYN2qQVGu iptla802JdPzx1vaNYDje OQqEWhqTVY1N67pw2H8ZT LiUTRkVJH1qNP6rC8yiPi nbjogbGVmdDsg ziSbuBqaRYqrKGyvR887R ZIoyAwsHiLsuJLeL6edei QIHP2wAejsdEN+PHRkIHN 0eWxlPSdwYWRk jM5fINDgE9m6NdDwBeG1S VmaO0XllbB2OEEugKBiIR RuxIMBnC5rzvjtr2taxhe gIzAwMDAwMDt0 MMd3XKOxwZrzYfBkAHN3H jI5CFH3nOFcjC0aqAdcwk ezpT4eQmv+RklOOjwvdGQ +ORElEIC6fShk PUhrJBDdxL7hPVFaK0f3D oOuSbY4PLozX9QnwfC1QB JeeYZvKHHcgYODyR9fgif uj9psvjveIyPk TATbCJs3VJl6TUMmsPqeM oUkPRE4WnS2RUY6eLJfeH 1niUvorocqpF8aRhw+TVJ OOjwvdGQ+PHRk UNK9oKkzTKliEAXonU3yC XKlQ7m3YxZdIeD8OVxjW6 KghoS0WWWnlWShNLMdgOR LtH0zruvpj6uu zgozEnZzJIUeDVu6YKh2L QPtbWoyLyQeRAM6LeX3YT B9rWXmnJ7gxYuumitteH3 wOyc+UBM9QCN0 SS84LX24F2JkTtiuoFHld +PHRhYmxlIHdpZHRoPS tgTNHjEqKneTirYK2bRv1 yZGVyLWNvbGxh cHNlOiBj (more content not included)... Normal [facility] Auto Diffon 08-09-2022 Basophils/100 WBC (Bld) 0.5 % Normal 0.0-2.0 [facility] Comment on above: Order Comment: Order Added by Discern Expert. Performed By: #### 2 286414, 4763221, 97079400, 4820043, 54820159, 13886965, 75500976 ####[facility] [address] [place] [address] Basophils/Leukocytes Auto (Bld) [Pure # fraction] 0.1 E9/L Normal 0.0-0.2 [facility] Comment on above: Order Comment: Order Added by Discern Expert. Performed By: #### 2 297522, 0403689, 21171128, 1176260, 14680195, 81206564, 11616631 ####[facility] [address] [place] [address] Eosinophils/100 WBC (Bld) 2.7 % Normal 0.0-8.0 [facility] Comment on above: Order Comment: Order Added by Discern Expert. Performed By: #### 2 550626, 3295422, 51440944, 6432163, 55286350, 41880433, 11828397 ####[facility] [address] [place] [address] Eosinophils/Leukocytes Auto (Bld) [Pure # fraction] 0.4 E9/L Normal 0.0-0.5 [facility] Comment on above: Order Comment: Order Added by Discern Expert. Performed By: #### 2 148896, 5230173, 68704717, 6960517, 09441697, 63896787, 24311914 ####[facility] [address] [place] [address] Lymphocytes/100 WBC (Bld) 12.8 % Low 14.0-50.0 [facility] Comment on above: Order Comment: Order Added by Discern Expert. Performed By: #### 2 622600, 2409657, 26716759, 9344771, 31630689, 63685877, 27439059 ####[place] [address] [place] [address] Lymphocytes/Leukocytes Auto (Bld) [Pure # fraction] 2.1 E9/L Normal 1.0-4.0 [facility] Comment on above: Order Comment: Order Added by Discern Expert. Performed By: #### 2 420636, 4145205, 42232698, 6880240, 79586679, 00142916, 38734692 ####[place] [place] [address] Monocytes/100 WBC (Bld) 6.4 % Normal 4.0-14.0 [facility] Comment on above: Order Comment: Order Added by Discern Expert. Performed By: #### 2 505868, 7379886, 90159654, 6180567, 73193383, 37397388, 40994655 ####[place] [place] [address] Monocytes/Leukocytes Auto (Bld) [Pure # fraction] 1.0 E9/L Normal 0.2-1.0 [facility] Comment on above: Order Comment: Order Added by Discern Expert. Performed By: #### 2 584852, 7103298, 91476627, 9165312, 65456884, 00639169, 64506768 ####[facility] [address] [place] [address] Neutrophils/100 WBC (Bld) 77.6 % High 36.0-75.0 [facility] Comment on above: Order Comment: Order Added by Discern Expert. Performed By: #### 2 178125, 3950414, 06032774, 5574863, 49184990, 42861039, 12322366 ####[facility] [address] [place] [address] Neutrophils/Leukocytes Auto (Bld) [Pure # fraction] 12.6 E9/L High 2.0-7.5 [facility] Comment on above: Order Comment: Order Added by Discern Expert. Performed By: #### 2 390252, 4096841, 11008822, 8045048, 51880855, 66595998, 19750807 ####[facility] [address] [place] [address] BMPon 08-09-2022 Creatinine [Mass/Vol] 1.1 mg/dL Normal 0.5-1.[address] [facility] Comment on above: Performed By: #### 2 139393, 1125298, 16078152, 3363332, 40739679, 61622167, 53754719 ####[facility] [address] [place] [address] Urea nitrogen [Mass/Vol] 18 mg/dL Normal 5-21 [facility] Comment on above: Performed By: #### 2 709077, 1538319, 96179756, 9620642, 53824094, 50563576, 54704453 ####[facility] [address] [place] [address] Urea nitrogen/Creatinine [Mass ratio] 16 No Units Normal 10-20 [facility] Comment on above: Performed By: #### 2 056326, 0498959, 84124706, 0000765, 55554469, 82355264, 86513032 ####[facility] [address] [facility] [place] [address] Anion gap [Moles/Vol] 13 mmol/L Normal 6-16 [facility] Comment on above: Performed By: #### 2 411047, 6136860, 70770010, 7068412, 72634526, 15878182, 82489450 ####[facility] [address] [place] [address] Calcium [Mass/Vol] 8.8 mg/dL Low 8.9-11.1 [facility] Comment on above: Performed By: #### 2 265838, 4309752, 40466307, 9249315, 88880467, 24376397, 46767551 ####[facility] [address] [place] [address] Chloride [Moles/Vol] 101 mmol/L Normal 101-111 [facility] Comment on above: Performed By: #### 2 003356, 6114679, 14890841, 4949098, 51756623, 46598844, 04723382 ####[facility] [address] [place] [address] CO2 [Moles/Vol] 27 mmol/L Normal 21-31 [facility] Comment on above: Performed By: #### 2 016477, 6466268, 63289749, 7247205, 48718347, 13130091, 52551397 ####[facility] [address] [place] [address] Glucose [Mass/Vol] 121 mg/dL Normal 55-199 [facility] Comment on above: Result Comment: If t his glucose result represents a fasting glucose, interpretation should refer to the following reference range: 55-99 mg/dL Performed By: #### 2 653999, 4077773, 49658297, 5629163, 52727056, 74152122, 45327869 ####[facility] [address] [place] [address] Potassium [Moles/Vol] 3.9 mmol/L Normal 3.5-5.[address] [facility] Comment on above: Performed By: #### 2 789428, 5802265, 34238719, 3017342, 29640932, 04395825, 26149115 ####[facility] [address] [place] [address] Sodium [Moles/Vol] 137 mmol/L Normal 135-145 [facility] Comment on above: Performed By: #### 2 825913, 1200841, 37895961, 5084178, 94644115, 86579863, 16865487 ####[facility] [address] [place] [address] BNPon 08-09-2022 Int Ctr BNP Pass Normal [facility] Comment on above: Performed By: #### 2 742603, 6938083, 43115237, 1952495, 89410191, 19016663, 50534514 ####[facility] [address] [place] [address] Natriuretic peptide B (Bld) [Mass/Vol] 19 pg/mL Normal 5-80 [facility] Comment on above: Performed By: #### 2 596535, 1774218, 70220199, 7932044, 91829635, 76300181, 25003166 ####[facility] [address] [place] [address] Blood Gas Art, with Lytes, G alex, [place] 08-09-2022 a/A Ratio Art 75.90 % Normal >=0.80 [facility] Comment on above: Performed By: #### 4 [id number] ####[facility] [address] [place] [address] AaDO2 Art 21.9 mmHg High 5.0-15.0 [facility] Comment on above: Performed By: #### 4 94574209 ####[facility] [address] [place] [address] Allens Test Not Applicable Normal [facility] Comment on above: Performed By: #### 4 56781111 ####[facility] [address] [place] [address] Base Excess Arterial 3.1 mmol/L Normal >=2.8 [facility] Comment on above: Performed By: #### 4 81107126 ####[facility] [address] [place] [address] cCa2+ Art 4.86 mg/dL Normal 4.40-5.30 [facility] Comment on above: Performed By: #### 4 [id number] ####[facility] [address] [place] [address] cCl- Art 105.0 mmol/L Normal 101.0-111.0 [facility] Comment on above: Performed By: #### 4 71988049 ####[place] [place] [address] cGlu Art 117 mg/dL High 55-99 [facility] Comment on above: Performed By: #### 4 [id number] ####[place] [address] [place] [address] cK+ Art 4.0 mmol/L Normal 3.5-5.3 [facility] Comment on above: Performed By: #### 4 12976067 ####[facility] [address] [place] [address] cLac Art 1.4 mmol/L Normal .5-2.2 [facility] Comment on above: Performed By: #### 4 97684243 ####[facility] [address] [place] [address] it project lead+ Art 142.0 mmol/L Normal 135.0-145.0 [facility] Comment on above: Performed By: #### 4 38170179 ####[facility] [address] [place] [address] Drawn by [employer]LG Invalid Interpretation Code [facility] Comment on above: Performed By: #### 4 [id number] ####[facility] [address] [place] [address] FCOHb Art 1.0 % Low 1.5-4.9 [facility] Comment on above: Result Comment: Refe rence range Nonsmoker <1.5% Smoker <5.0% Heavy Smoker <9.0% Performed By: #### 4 [id number] ####[facility] [address] [place] [address] FIO2 BG 21 Invalid Interpretation Code [facility] Comment on above: Performed By: #### 4 36807986 ####[facility] [address] [place] [address] FMetHb Art 0.5 % Normal 0.0-1.9 [facility] Comment on above: Performed By: #### 4 15225906 ####[facility] [address] [place] [address] FO2Hb Art 92.6 % Normal 92.0-100.0 [facility] Comment on above: Performed By: #### 4 24090533 ####[facility] [address] [place] [address] HCO3 (Bld) [Moles/Vol] 27.1 mmol/L High 22.0-26.0 [facility] Comment on above: Performed By: #### 4 58290637 ####[facility] [address] [place] [address] Hemoglobin (Bld) [Mass/Vol] 12.5 g/dL Normal 12.0-16.0 [facility] Comment on above: Performed By: #### 4 37225019 ####[facility] [address] [place] [address] Oxygen saturation in Blood 94.1 % Low 95.0-100.0 [facility] Comment on above: Performed By: #### 4 30573820 ####[facility] [address] [place] [address] P CO2 Arterial 48.9 mmHg High 35.0-45.0 [facility] Comment on above: Performed By: #### 4 78972302 ####[facility] [address] [place] [address] P O2 Arterial 68.8 mmHg Low 80.0-100.0 [facility] Comment on above: Performed By: #### 4 [id number] ####[facility] [address] [place] [address] pH Arterial 7.383 Normal 7.350-7.450 [facility] Comment on above: Performed By: #### 4 [id number] ####[place] [address] Sample Site R Brachial Normal [facility] Comment on above: Performed By: #### 4 [id number] ####[place] [address] Sample Type Arterial Draw Normal [facility] Comment on above: Performed By: #### 4 [id number] ####[address] [address] CBC w/ Auto Diffon 3 Erythrocyte distribution width (RBC) [Ratio] 15.4 % High 10.9-14.2 [facility] Comment on above: Performed By: #### 2 943157, 3952758, 40741102, 5016630, 38019541, 61159865, 01991566 ####[address] [address] Hematocrit (Bld) [Volume fraction] 36.9 % Normal 34.0-46.0 [facility] Comment on above: Performed By: #### 2 877881, 3053414, 80413777, 6955549, 22930190, 99191009, 43909709 ####[facility] [address] [place] [address] Hemoglobin (Bld) [Mass/Vol] 11.8 g/dL Low 12.0-16.0 [facility] Comment on above: Performed By: #### 2 958541, 3430121, 88798654, 8701652, 88521119, 86118176, 50903069 ####[facility] [address] [place] [address] MCH (RBC) [Entitic mass] 28.0 pg Normal 27.0-34.0 [facility] Comment on above: Performed By: #### 2 026450, 6130096, 76968582, 8575166, 62476444, 07147522, 10332489 ####[facility] [address] [place] [id number] MCHC (RBC) [Mass/Vol] 32.0 g/dL Normal 31.4-36.[address] [facility] Comment on above: Performed By: #### 2 120944, 4167953, 71598609, 9525884, 76894160, 16633649, 24342236 ####[address] [address] MCV (RBC) [Entitic vol] 87.6 fL Normal 80.0-100.0 [facility] Comment on above: Performed By: #### 2 857888, 8613887, 26287861, 0295299, 52435485, 96052611, 29267976 ####[address] [address] Platelet mean volume (Bld) [Entitic vol] 8.4 fL Normal 6.4-10.8 [facility] Comment on above: Performed By: #### 2 188314, 3505227, 30126793, 4495940, 98165663, 12574249, 68735365 ####[address] [address] Platelets (Bld) [#/Vol] 238.0 E9/L Normal 150.0-500.0 [facility] Comment on above: Performed By: #### 2 930970, 0867034, 16406949, 7750949, 61370616, 94876065, 72912290 ####[address] [address] RBC (Bld) [#/Vol] 4.2 E12/L Low 4.3-5.9 [facility] Comment on above: Performed By: #### 2 123442, 2565390, 53329498, 8960925, 25240817, 31606648, 88428569 ####[facility] [address] [place] [address] WBC corrected for nucl RBC Auto (Bld) [#/Vol] 16.3 E9/L High 4.0-11.0 [facility] Comment on above: Result Comment: Slid e reviewed by LW. Performed By: #### 2 297561, 7282700, 20563590, 0398234, 79128500, 05351807, 35673557 ####[facility] [address] [place] [address] CHEMISTRYOrdered By: SYSTEM SYSTEM on 08-09-2022 Troponin I.cardiac [Mass/Vol] 7.00 pg/mL Low 10.10 - 27.10 pg/mL [facility] Remisol Anion gap [Moles/Vol] 13 mmol/L Normal [...] 50 mL/min/1.73 m2 Low >=59mL/min/1 .73 m2 [facility] Chem S Glucose [Mass/Vol] 121 mg/dL Normal 55 - 199 mg/dL FT Remisol Potassium [Moles/Vol] 3.9 mmol/L Normal 3.5 - 5.3 mmol/L [facility] Remisol Sodium [Moles/Vol] 137 mmol/L Normal 135 - 145 mmol/L FT Remisol Troponin I.cardiac [Mass/Vol] 4.00 pg/mL Low 10.10 - 27.10 pg/mL FT Remisol Urea nitrogen [Mass/Vol] 18 mg/dL Normal 5 - 21 mg/dL FT Remisol Urea nitrogen/Creatinine [Mass ratio] 16 mg/mg Normal 10 - 20 [facility] Remisol CHEMISTRYOrdered By: Evelyn montenegroer on 08-09-2022 Natriuretic peptide B (Bld) [Mass/Vol] 19 pg/mL Normal 5 - 80 pg/mL [facility] HemeManSS COAGULATIONOrdered By: Sagar Castorena on 08-09-2022 aPTT Coag (PPP) [Time] 31.4 s Normal 25.1 - 36.5 second(s) [facility] Auto Coag INR Coag (PPP) [Relative time] 0.9 {INR} Invalid Interpretation Code [facility] Auto Coag PT Coag (PPP) [Time] 10.3 s Normal 9.4 - 1 2.5 second(s) [facility] Auto Coag CTA Cheston 08-09-2022 CTA Chest [...] 370 Contrast amount in ml's: 73 Normal [facility] Discharge Instructionson Discharge Instructions [id number]# 1.00CD:127 Normal [facility] ED Clinical Summaryon 2022 ED Clinical Summary [place] [address] ED Clinical Summary Person Information Name: VIVIAN VANN Vika/[facility] Age: 62 Years : 1960 Sex: Female Language: [place] PCP: Екатерина Robert MD Marital Status: Visit [...] 08/09/2022 18:01:49 08/09/2022 18:01:49 08/09/2022 18:01:49 AD[address]ESS: [address] [id number] PHYS DOC NOTES: MEDICAL INFORMATION: Prescriptions Given: [facility], [address] [place], [place] [id number], [phone] brompheniramine/dextr omethorphan/PSE (Bromfed DM oral syrup) 5 [...] Follow up: With: Address: When: Екатерина Robert [address] [place] [address], [facility] [address] [place] [id number] Business (1) In 3 days 08/12/2022 Comments: Call the office of your primary care doctor to arrange for follow-up within the above-stated timeframe. Follow-up with your primary care doctor about this ED visit. You should review your labs, imaging, and diagnoses from this ED visit with your primary care physician. If y (more content not included)... Normal [facility] ED Note-Physicianon 08-10-19 ED Note-Physician Basic [...] that she has had [address] [facility] over the last few weeks for pneumonia/COPD exacerbation. Patient is currently on amoxicillin at home, feels that her symptoms are not improving but are in fact worsening. Patient endorses fevers and chills, myalgias. Patient reports her symptoms had not improved much on her last discharge from [place], and worsening since that time. Patient is [...] and Complexity of Problems Differential Diagnosis: [] [facility] Data External documents reviewed: [] My [...] for co (more content not included)... Normal [facility] Comment on above: Result Comment: Elec [...] these instructions at home: Medicines ? Take ccns-ahs-pdlbcln and prescription medicines (inhaled or pills) only [...] you e (more content not included)... Normal [facility] ED Patient Summaryon 023 ED Patient Summary [address] [address] Patient Discharge Instructions Person Information Name: VIVIAN VANN Age: 62 Years Arrival Date: 08/09/2022 13:09:07 Discharge Diagnosis: COPD exacerbation Primary Care Physician: Екатерина Robert MD Provider Information Primary Provider: Arsenio Martin DO Advanced Flame Planer:Clinton Lucero PA-C The exam and treatment you received in the Emergency Department were for an urgent problem and are not intended as complete care. It is important that you follow up with a doctor, nurse practitioner, or physician?s animal assistant for ongoing care. If your symptoms [...] Follow-up Instructions: With: Address: When: Екатерина Robert [address] [place] [address], [facility] [place] [address] Business (1) In 3 days [...] opioids can be used to help relieve pusrxjkn-of-squyjt pain and are often prescribed following a [...] Safely disp (more content not included)... Normal [facility] EMS Documentationon 08-10-19 23 EMS Documentation Please click on link to see report [id number] CiX5+prnDQolQUJDcGRmI KEmXwO3WNqoMcCdXV1nkm 9EWTfUO7IzFGCsTQy1Rs8 I CNcsSAx3HMOmEW3GP7viS Gs4AlP0Fe0UuK9fTSZyeg XfUXHGE03lKlfdClXpSHo kJRUtVta6YpXO Yj4eJYFeTXIbNEAdALBdA CAgICAgICAgICAgICAgIC AgICAgICAgICAgICAgICA gICAgICAgICAg ICAgICAgICAgICAgICAgI CAgICAgDQplbmRvYmoNCg 9WgGReAx0YIhHhLiZQKwN wMDAwMDAwMzIg NYTtADPotk8DRXTiKTNgC LK3EAUnCXOsNMLcGUwpRH YvRDRqZEb1WRObGPCuCS7 NCjAwMDAwMDE3 KWYgRDMrXHPfjs0PDMZxK DAwMTkzNCAwMDAwMCBuDQ jnHHYjROFcAVf4JRRtVRV mNS2VYpOhZGBy KWHqDdKqXJCeBBHlxq3ZK DAwMDAwMjMxNSAwMDAwMC DrSEcfETFqIFFbWai7JTD kVDItMD2UQcCl XPMbQDP5CXabCEDwSXWgw x4ABBOxPFRzFdisTNFrBE AwMCBuDQowMDAwMDAzMDY nOZJiKYObUZ0E TvJoZSNdFXY5PMLrUVIqR LIaif1RWZIhJKEnKsCpGt AwMDAwMCBuDQowMDAwMDA eICW5MFMpRHCu TI6GDfMmRTYkLMHpKINkC VHpWFTbmh9HRHPsSXNfIV U6GlAnBKBlNRPfROxsVUY dONB6NwZ9TMUo DPWdKV6TOkWxCHIcBTS5M SDcTHCiRRJewq7FACYyPQ BcUCD9TYIfQRQrMWNiIXi tRMEbFFK1CIL6 DLOvICLsCQ8GJpDnYWKdY XV4CAtgWZOpTRQrlb2YPN AwMDAwOTMwMCAwMDAwMCB uDQowMDAwMDQ5 UHanHLYbURPrCV9DCsRgP NZjSKA2AKGyNZKeSOBorl 4AvTTxhGdvid9WUTzXI1x RGXy9QHOGMRD8 MrP1D7Z0QzD3RPnYPEmqS MS0OMNHJeK8PAL+CjxGRj ZvR8MRHFKTSLGcKfowRCS KKAG2NIjeAEq7 UXNjZY4oOd7ZqzT2CJC1I YacRLgdYk8qoPZqMqPwOM LKH8KmvlClFMuAS5CmxXF iIFVkE0RSJLG3 Wo33PefxjZyJCVA1BKWWD CvlKA5BBfuPRaUvKBcaPm 04C1QSh6W5NgRzT3TNfAd UhjVYMMnwS8fW sRM5d9iqqSbNgCGExOmnZ GdJcndPalFSQUlqUHNXaE 54ectKW3JpLAx2U2WPAx6 DCKelQhZevG6B tYmzJTA1eR9kPXAAHHuNZ bcpZM7XFODJDQf6ESc+Pi AgICAgICAgICAgICAgICA gICAgICAgICAg ICAgICAgICAgICAgICAgI CAgICAgICAgICAgICAgIC AgICAgICAgICAgICAgICA gICAgICAgICAg ICAgICAgICAgICAgICAgI CAgICAgICAgICAgICAgIC AgICAgICAgICAgICAgICA gICAgICAgICAg ICAgICAgICAgICAgICAgI CAgICAgICAgICAgICAgIC AgICAgICAgICAgICAgICA gICAgICAgICAg ICAgICAgICAgICAgICAgI CAgICAgICAgICAgICAgIC AgICAgICAgICAgICAgICA gICAgICAgICAg ICAgICAgICAgICAgICAgI CAgICAgICAgICAgICAgIC AgICAgICAgICAgICAgICA gICAgICAgICAg ICAgICAgICAgICAgICAgI CAgICAgICAgICAgICAgIC AgICAgICAgICAgICAgICA gICAgICAgICAg ICAgICAgICAgICAgICAgI CAgICAgICAgICAgICAgIC AgICAgICAgICAgICAgICA gICAgICAgICAg TY2Au6ZiqcP7vbEaBMceM NjeFVOVKm6LSEoxVyGfVM 7lrk8MDMuBF95loPRyJSS hIDIxIDAgUgov B9LtpjGnxHavddBfLpIjK AAJGs6XtZDIBCtvL9G0zR zcGCNbBCohZFQZWl2MHOp sLB5jHULkYJTm Zq5oBLjqTFJhEGFeVqLcW RNYYn3MnXOcIG7NLMAylV 9nCj4+DQplbmRvYmoNCg0 KMjQgMCBvYmoN Bdn4Et6RjMa3AZVqT7FqM XItQZRzk7QhRw1XMU2elK qmXJM4Na9SHPm9Rh9+DQp tkOLpTA3BVqjc S4HmCXDcYBUxRWCsQDcKw XCgAIUpQLYQVIyLgXHaDQ jzpTYDMsAQZzMCEmJQzMC yZcF7RDoZC7F1 FRtCAxNoh1L9VGgRKTFAI aXdDCvHiOpS7kWIdMqVom D69OF1hQbJRMYuPUND5GV lrUgN8CbETs4U 4Y9WEA4bz6QgEHXlROaor lZsBohJGw4ZQdAqINGiXs lBRfm8Ws6Bo755PU20ilA bNDIgMCBSXQov NAXvsMWSw3juRvTdPOB8B DGhSxqjLNuhTPLpWB90KI WwGHCcZivzYcHwe9OfD3P sGKg0Ef8IH5Uc AAI7EPq6Fa8GKBYoXyZeL dIxUBGEQg3DBv5WC8T7qP LaO9XoQ3WFWb5OEwGaUS0 api2AXBakOuSk GM3opo3UJFcPC5EEj0aiK eVoPAO7SDTsKjkvLMfbAm rmdMTnXM7IzQR7WUMnI68 wWXbfOSPrD6Ko LPm6Sp5JAOTqnCRzOGLnQ ToMN4zCMaexD1FkLCwAO4 gqEaE1GCCnGANbZka+Pgo +MlfrI0JbjCpu IIDnId7pjWzjFRfeLQZpJ R4wlwCqcMm+Tg2Lo2VeJP CwABu8hPXH7MDh5UVnUWO vCZR9WLFqytJZ IXeq9GlZvFPoJzSpqPNbY 7rqLEDm90zNZEAyCubRd8 bwSdGh9LeDAA+ZM8SWekC mPhAggh5IXNgv xnSisYUpJI4UUxXhTY2nj g1PMRlaEvWkPA5vsj8QCS jDF6TJWQ5Vx3GtPExQF4Q QQRWXU6uJZVJD B1oOZIKTE9mCXFELV09SV WNZH6CXOVRffRWJK3QtPM YCOd6MStXfOX2mxs6ZRXj rSUIdUD9egl1S IMcUB6CENY7Bv7GyXYnMQ 3KhYMGAGu2TViKkCR4gzy 5SLBobVLIqBM4lbf4DGUc ON3THJF0Vu3Se RZtAR0YQGPMZU1yBHXPMY 5iBRXYFU8sYDQLME57NXL NGY7NMNKPleLRIN5SmUHL OZd3FOaSgOT2t sg3KZPvfKGCeHV3ete9XT VuZV8Yav8VEh012DL4WPr gABO9xS750pgekzv0px4T TLUJvbGRNVAov DITjU3DvCUYrdMLeamVtR XyfVSGeJQMvPt1QviOxGV luZyAvSWRlbnRpdHktSAo jH0MpoSljSSNa YMdbARSVI0KkNS5aM42iM DIeCzUdQFYKZ0K1rVTuO9 OohqLVIx5DFyZbDP4tbg7 RUQeoOGHdMU2r nc1BXTiVM4Ihw9CTk889E B3QXelVAE4rM821lrbbhv 8zo8XYWJHzqFAXXMasM1g NB9iayUVaQU5d vxF4CMuuZ6IgUNNlkjhfQ WriSL14dQO8RUyjNpNwvD C1jbqxSAMke2LzVKjoZ1R wcGxlbWVudCAw Cj4+Oa1OTEWKr1mVTJ5wu NNnFCTzcnZtlCvSW0XYRA JJY1OsymNEDTLipnexdN1 yIDMyIDAgUgov E3LprFelRJFzU3tOTx4kc FJ7sKWnYy3UxOPqFD7Gp6 67Sh9WVNptXAajMZItDJ3 yFGq2Zf2TXd2A WdXbOP6fuj6HKYfzTvDqV P7pkp3SLKgXF7QqK1OfvD C5JxXaRGF5HCDJG0WdaGm azLlpiEH3QHHx Wlc8WVkAN8Sst3EzwdFyN uLyUbG6Knv3Ck5FwNJtcb VdPFfbBb7aiPFYz2xlOj2 zJRMgWBs7WGIq ULumFI73GPvxFzA8HAXaZ mBcBWJqSMGsUH3yKSQ0LB 6EJ0NpdsZJcQsaRkL2SVJ nRONIH1ZmuqOX QJ0lYP1DNryMFJ4rA271n txqbg6bo3XWBUQeiMEDBB dmTTJmwNqfPG8qkQSvXOw rB6MmfNUwLxJl FDffKPsAZ7R6xJCsK6Lfc mWUFFSlhvuxnF7hWz8+DQ wvyfIzZnkXCy1QClWjMPD tIvjKWwl2Ra1F tVv5WVMwH8AmFYZxCEHdb 9YbUy4AUQ6fhHnwFnE1Dt 4+OVggkNIdRK6CIdhdMUN HjiHlBKi0W2oU KbXUHNfHIXzduxQkS0IpP 6v5xYiGfIcn6M3adsHVtc uhP2kxq15O0P4+sXby8WV NodFYy0T2n1z0 wTH5BMdeDTh8EtibIn3t9 BxLoridpwBDY/uRlSXnyV cOHzIVgLFR1zitODSlNYl kl7h4tOmT04jc vzCADVywquIa+xo81qp8t dPjjBih4Ju6XK4LbHVii3 cUYqOCxqQbvrd7Ilsvj0Z KXVzHf5IzQGTs /4DdDn258iL6sH6kefFPC Lb4dJYRTuKUqJdl2t5hKr PcMT7LmL8vUfUZ9f9RjhH Eb5x77uGTJ0Pf RvIayawgcodHIYmkChnJi xckc/SvRW8ev9YfKNF+y+ oMwMHwFpbt9ErkZc0FtzD I39mMPNfF25/A jY5RUv2fdehxPz6RMN7fv 3RyZWFtDQplbmRvYmoNCg 8KKmAzHZOnMbjWPka3So6 MNZByUv9hkCBr VjyPWCoAL3JuyAEfGWGZK BbVK68YLe8DCHDqZX0lAY 62Fl5inLBbLpF7XRTrRd8 YM6MvU70csQ0h KT3CCZTetIc6yS3ZDx0Ri CU9uVXsPV5AuZLyWCemSE 8Bnjazh5HkCHG6 (more content not included)... Normal [facility] FT Blood GasesOrdered By: Ra raciel [...] - 2.2 mmol/L FT Resp Auto SS it project lead+ Art 142.0 mmol/L Normal 135.0 - 145.0 mmol/L [facility] Resp Auto SS Drawn by RLG Invalid Interpretation Code [facility] Resp Auto SS FCOHb Art 1.0 % Low 1.5 - 4.9 % [facility] Resp Auto SS FIO2 BG 21 Invalid Interpretation Code [facility] Resp Auto SS FMetHb Art 0.5 % Normal 0.0 - 1.9 % FT Resp Auto SS FO2Hb Art 92.6 % Normal 92.0 - 100.0 % [facility] Resp Auto SS HCO3 (Bld) [Moles/Vol] 27.1 mmol/L High 22.0 - 26.0 mmol/L FT Resp Auto SS Hemoglobin (Bld) [Mass/Vol] 12.5 g/dL Normal 12.0 - 16.0 gm/dL [facility] Resp Auto SS P CO2 Arterial 48.9 mm[Hg] High 35.0 - 45.0 mmHg FT Resp Auto SS P O2 Arterial 68.8 mm[Hg] Low 80.0 - 100.0 mmHg [facility] Resp Auto SS pH Arterial 7.383 Normal 7.350 - 7.450 [facility] Resp Auto SS Sample Site R Brachial (08/09/22 2:03 PM) Normal [facility] Resp Auto SS Sample Type Arterial Draw (08/09/22 2:03 PM) Normal [facility] Resp Auto SS HEMATOLOGYOrdered By: SYSTEM SYSTEM [...] 32.0 g/dL Normal 31.4 - 36.0 gm/dL [facility] HemeAutoSS MCV (RBC) [Entitic vol] 87.6 fL [...] Coag (PPP) [Time] 31.4 second(s) Normal 25.1-36.5 [facility] Comment on above: Result Comment: Para [...] the same coagulation reagent and instrumentation as [facility]. Currently there are no coagulation studies available worldwide for children to 14 days, and no normal ranges. Heparin therapeutic range (represented by Anti-Factor Xa activity of 0.2 - 0.4 U/mL) corresponds to PTT of 56.6 - 109.0 sec. Performed By: #### 2 [id number], [id number], [id number], 3764897, 00300180, 84585142, [id number] ####[facility] [address] [place] [address] INR Coag (PPP) [Relative time] 0.9 {INR} Invalid Interpretation Code [facility] Comment on above: Result Comment: INR results are specifically intended to assess patients stabilized on long-term Anticoagulation therapy suggested INR?s ?Less Intensive Anticoagulation? 2.0 ? 3.0 Conventional Range 3.0 ? 4.5 Performed By: #### 2 [id number], 5927519, 82858408, 4294055, 44436611, 76643531, 10141207 ####[facility] [address] [place] [address] PT Coag (PPP) [Time] 10.3 second(s) Normal 9.4-12.5 [facility] Comment on above: Result Comment: 15 [...] the same coagulation reagent and instrumentation as [facility]. Currently there are no coagulation studies available worldwide for children to 14 days, and no normal ranges. Performed By: #### 2 556520, 3689969, 91250301, 0257555, 45172302, 71473352, [id number] ####[facility] [address] [place] [address] Pre-Arrival Noteon 3 Pre-Arrival Note Pre-Arrival Summary Name: , Current Date: 08/09/2022 13:09:29 EDT Gender: Female Date of : Age: 62 Pre-Arrival Type: EMS ETA: 08/09/2022 13:33:00 EDT Primary Care Physician: Presenting Problem: sob Pre-Arrival User: John Martin Referring Source: Location: [place] Completion Date/Time: 08/09/2022 13:03:00 [facility] Emergency Department Pre-Hospital Report Form Vital Signs: Pre-Hospital Report: Treatment in Route: Response to Treatment: Misc. Issues: Normal [facility] Troponin 0 Hr.on 08-09-2022 Troponin I.cardiac [Mass/Vol] 4.00 pg/mL Low 10.10-27.10 [facility] Comment on above: Result Comment: The 95% CI (Confidence Interval) PPV (Positive Predictive Value) for myocardial infarction in females is 38 pg/mL, in males 51 pg/mL. The results should be used in conjunction with clinical conditions of myocardial infarction. (Access High Sensitivity Troponin I Instructions For Use, [employer], December 2017) Performed By: #### 2 [id number], 7118476, 13585638, 1812426, 37417433, 36631059, [id number] ####[facility] [address] [place] [address] Troponin 3 Hr.on 08-09-2022 Troponin I.cardiac [Mass/Vol] 7.00 pg/mL Low 10.10-27.10 [facility] Comment on above: Result Comment: The 95% CI (Confidence Interval) PPV (Positive Predictive Value) for myocardial infarction in females is 38 pg/mL, in males 51 pg/mL. The results should be used in conjunction with clinical conditions of myocardial infarction. (Access High Sensitivity Troponin I Instructions For Use, [employer], December 2017) Performed By: #### 1 [id number] ####[address] [place] [address] XR Chest Single Viewon 08-09 XR Chest [...] mGy = na DAP = na Normal [facility] eGFRon 08-09-2022 GFR/1.73 sq M.predicted among blacks MDRD (S/P/Bld) [Vol rate/Area] mL/min/{1.73_m2} Normal >=59 [facility] Comment on above: Order Comment: Order added by Discern Expert. Result Comment: eGFR is race adjusted. AA=. Performed By: #### 2 784588, 8238504, 21773813, 3406063, 74064791, 17736890, 79529355 ####[facility] [address] [place] [address] GFR/1.73 sq M.predicted among non-blacks MDRD (S/P/Bld) [Vol rate/Area] 50 mL/min/1.73 m2 Low >=59 [facility] Comment on above: Order Comment: Order added by Discern Expert. Result Comment: Emergency Medicine Nurse Practitioner valeria kidney disease could be indicated at eGFR's of less than 60 mL/min/1.73m2. Kidney failure is indicated at less than 15 mL/min/1.73m2. Performed By: #### 2 187243, 5168022, 34469300, 0289451, 08041367, 41204339, [id number] ####[facility] [address] [place] [address] CBC W MANUAL DIFFon 08-02-19 23 ATYPICAL LYMPH # Normal [facility] Comment on above: Performed By: #### C ROSARIO ####[facility] [address] [place] [id number]. Nahed Yañez ATYPICAL LYMPH % Normal [facility] Comment on above: Performed By: #### C ROSARIO ####[facility] [address] [place] [phone]. Nahed Yañez BAND # 0.9 103/ul Critically high 0.0-0.3 [facility] Comment on above: Performed By: #### C ROSARIO ####[facility] [address] [place] [address]Dr. Yilan Yañez BAND % 5 % Normal 0-[address] [facility] Comment on above: Performed By: #### C ROSARIO ####[facility] [address] [place] [address]Dr. Nahed Yañez BASOM # 0.00 103/ul Normal 0.00-0.[address] [facility] Comment on above: Performed By: #### C ROSARIO ####[facility] [address] [place] [address]Dr. Nahed Yañez BASOM % 0.0 % Critically low 0.2-2.0 [facility] Comment on above: Performed By: #### C ROSARIO ####[facility] [address] [place], [place] [address]Dr. Nahed Yañez BLAST # Normal [facility] Comment on above: Performed By: #### C ROSARIO ####[facility] [address] [place] [address]Dr. Nahed Yañez BLAST % Normal [facility] Comment on above: Performed By: #### C ROSARIO ####[facility] [address] [place] [address]Dr. Nhaed Yañez CORRECTED WBC Normal 4.0-11.0 [facility] Comment on above: Performed By: #### C ROSARIO ####[facility] [address] [place] [address]Dr. Nahed Yañez EOS # 0.00 103/ul Normal 0.00-0.[address] [facility] Comment on above: Performed By: #### C ROSARIO ####[facility] [address] [place], [place] [address]Pw. Nahed Yañez EOS% 0.0 % Critically low 0.9-7.0 [facility] Comment on above: Performed By: #### C ROSARIO ####[facility] [address] [place], [place] [address]Kh. Nahed Yañez HCT 39.5 % Normal 36.0-48.[address] [facility] Comment on above: Performed By: #### C ROSARIO ####[facility] [address] [place], [place] [address]Dw. Nahed Yañez HGB 13.0 g/dl Normal 12.0-16.[address] [facility] Comment on above: Performed By: #### C ROSARIO ####[facility] [address] [place] [phone]. Nahed Yañez LYMPHM # 1.72 103/ul Normal 1.20-3.[address] [facility] Comment on above: Performed By: #### Isabell PONCE ####[facility] [address] [place], [place] [address]Qj. Nahed Yañez LYMPHM% 10.0 % Critically low 20.5-60.0 [facility] Comment on above: Performed By: #### Isabell PONCE ####[facility] [address] [place], [place] [address]Sa. Nahed Yañez MCH 28.7 pg Normal 26.7-34.[address] [facility] Comment on above: Performed By: #### Isabell PONCE ####[facility] [address] [place], [place] [address]Uz. Nahed Yañez MCHC 32.9 g/dl Normal 29.9-35.[address] [facility] Comment on above: Performed By: #### Isabell PONCE ####[facility] [address] [place], [place] [address]Rx. Nahed Yañez MCV 87.2 fL Normal 81.0-99.[address] [facility] Comment on above: Performed By: #### Isabell PONCE ####[facility] [address] [place] [phone]. Nahed Yañez METAMYELOCYTE # Normal [facility] Comment on above: Performed By: #### C RSOARIO ####[facility] [address] [place] [phone]. Nahed Yañez METAMYELOCYTE % Normal [facility] Comment on above: Performed By: #### C ROSARIO ####[facility] [address] [place] [phone]. Nahed Yañez MONOM# 0.86 103/ul Critically high 0.30-0.80 [facility] Comment on above: Performed By: #### C ROSARIO ####[facility] [address] [place] [phone]. Nahed Yañez MONOM% 5.0 % Normal 1.7-12.0 [facility] Comment on above: Performed By: #### C ROSARIO ####[facility] [address] [place] [phone]. Nahed Yañez MPV 9.8 fL Normal 9.5-13.5 [facility] Comment on above: Performed By: #### C ROSARIO ####[facility] [address] [place] [phone]. Nahed Yañez MYELOCYTE # Normal [facility] Comment on above: Performed By: #### C ROSARIO ####[facility] [address] [place] [phone]. Nahed Yañez MYELOCYTE % Normal [facility] Comment on above: Performed By: #### C ROSARIO ####[facility] [address] [place] [phone]. Nahed Yañez NRBC Normal [facility] Comment on above: Performed By: #### C ROSARIO ####[facility] [address] [place] [phone]. Nahed Yañez PLT 388 103/ul Normal 150-[address] [facility] Comment on above: Performed By: #### C ROSARIO ####[facility] [address] [place] [phone]. Rosemarieashley Otilio RBC 4.53 106/ul Normal 4.20-5.40 [facility] Comment on above: Performed By: #### C GILBERTOMAN ####[facility] [address] [place] [phone]. Nahed Yañez RDW 14.4 % Normal 11.0-15.0 [facility] Comment on above: Performed By: #### C ROSARIO ####[facility] [address] [place], [place] [address]Pi. Nahed Yañez SEG # 13.76 103/ul Critically high 1.40-6.50 [facility] Comment on above: Performed By: #### C ROSARIO ####[facility] [address] [place] [phone]. Nahed Yañez SEG % 80.0 % Critically high 43.0-75.0 [facility] [place] [facility] Comment on above: Performed By: #### C ROSARIO ####[facility] [address] [place] [phone]. Nahed Yañez WBC 17.2 103/ul Critically high 4.0-11.0 [facility] Comment on above: Performed By: #### C ROSARIO ####[facility] [address] [place] [phone]. Nahed Yañez MAGNESIUMon 08-01-2022 Magnesium [Mass/Vol] 2.0 mg/dL Normal 1.8-2.4 [facility] Comment on above: Performed By: #### MG COLE, CMP ####[facility] [address] [place] [phone]. Nahed Yañez POINT OF CARE GLUCOSEon 07-13 Glucose [Mass/Vol] 267 mg/dL Critically high 74-106 [facility] Comment on above: Performed By: #### P OCGLUC ####[facility] [address] [place] [phone]. Nahed Yañez PROF 14(COMP METB)on 023 Albumin [Mass/Vol] 3.4 g/dL Normal 3.4-5.0 [facility] Comment on above: Performed By: #### Nydia ELLER MG, CMP ####[facility] [address] [place] [address]Dr. Nahed Yañez Albumin/Globulin [Mass ratio] 0.9 {ratio} Normal [facility] Comment on above: Performed By: #### MG COLE, CMP ####[facility] [address] [place] [address]Dr. Nahed Yañez ALP [Catalytic activity/Vol] 100 U/L Normal 46-116 [facility] Comment on above: Performed By: #### MG COLE, CMP ####[facility] [address] [place] [address]Dr. Nahed Yañez ALT [Catalytic activity/Vol] 19 U/L Normal 14-59 [facility] Comment on above: Performed By: #### MG COLE, CMP ####[facility] [address] [place] [address]Dr. Nahed Yañez Anion gap [Moles/Vol] 12.7 mmol/L Normal [facility] Comment on above: Performed By: #### MG COLE, CMP ####[facility] [address] [place] [address]Dr. Nahed Yañez AST [Catalytic activity/Vol] 13 U/L Critically low 15-37 [facility] Comment on above: Performed By: #### MG COLE, CMP ####[facility] [address] [place] [address]Dr. Nahed Yañez Bilirubin [Mass/Vol] 0.4 mg/dL Normal 0.2-1.0 [facility] Comment on above: Performed By: #### MG COLE, CMP ####[facility] [address] [place] [address]Dr. Nahed Yañez Calcium [Mass/Vol] 9.5 mg/dL Normal 8.5-10.1 [facility] Comment on above: Performed By: #### MG COLE, CMP ####[facility] [address] [place] [address]Dr. Nahed Yañez Chloride [Moles/Vol] 100 mmol/L Normal 98-[address] [facility] Comment on above: Performed By: #### MG COLE, CMP ####[facility] [address] [place], [place] [address]Dr. Nahed Yañez CO2 [Moles/Vol] 27.1 mmol/L Normal 21.0-32.0 [facility] Comment on above: Performed By: #### MG COLE, CMP ####[facility] [address] [place], [place] [address]Dr. Nahed Yañez Creatinine [Mass/Vol] 1.16 mg/dL Critically high 0.55-1.[address] [facility] Comment on above: Performed By: #### MG COLE, CMP ####[facility] [address] [place], [place] [address]Dr. Nahed Yañez EGFR-AF OMANI 58 mL/min/1.73m2 Critically low >=[address] [facility] Comment on above: Performed By: #### MG COLE, CMP ####[facility] [address] [place], [place] [address]Dr. Nahed Yañez EGFR-NON AF OMANI 47 mL/min/1.73m2 Critically low >=[address] [facility] Comment on above: Performed By: #### MG COLE, CMP ####[facility] [address] [place], [place] [address]Dr. Nahed Yañez Globulin (S) [Mass/Vol] 3.6 g/dL Normal [facility] Comment on above: Performed By: #### MG COLE, CMP ####[facility] [address] [place], [place] [address]Dr. Nahed Yañez Glucose [Mass/Vol] 175 mg/dL Critically high 74-106 [facility] Comment on above: Performed By: #### MG COLE, CMP ####[facility] [address] [place], [place] [address]Dr. Rosemarieashley Yañez Potassium [Moles/Vol] 3.8 mmol/L Normal 3.5-5.[address] [facility] Comment on above: Performed By: #### T RAFITA, MG, CMP ####[facility] [address] [place] [address]Dr. Nahed Yañez Protein [Mass/Vol] 7.0 g/dL Normal 6.4-8.2 [facility] Comment on above: Performed By: #### Ndyia ELLER MG, CMP ####[facility] [address] [place] [address]Dr. Nahed Yañez Sodium [Moles/Vol] 136 mmol/L Normal 136-[address] [facility] Comment on above: Performed By: #### Nydia ELLER MG, CMP ####[facility] [address] [place], [place] [address]Dr. Nahed Yañez Urea nitrogen [Mass/Vol] 25.0 mg/dL Critically high 7.0-18.0 [facility] Comment on above: Performed By: #### Nydia ELLER MG, CMP ####[facility] [address] [place], [place] [address]Dr. Nahed Yañez Urea nitrogen/Creatinine [Mass ratio] 21.6 mg/mg Normal [facility] Comment on above: Performed By: #### Nydia ELLER MG, CMP ####[facility] [address] [place], [place] [address]Dr. Nahed Yañez THEOPHYLLINEon 08-01-2022 THEOPHYLLINE 17.1 ug/mL Normal 10.0-20.[address] [facility] Comment on above: Performed By: #### MG COLE, CMP ####[facility] [address] [place], [place] [address]Dr. Nahed Yañez CBC AUTO DIFFon 07-31-2022 BASO # 0.0 103/ul Normal 0.0-0.[address] [facility] Comment on above: Performed By: #### C BC ####[facility] [address] [place], [place] [address]Dr. Nahed Yañez Basophils/100 WBC (Bld) 0.2 % Normal 0.2-2.0 [facility] Comment on above: Performed By: #### C BC ####[facility] [address] [place], [place] [address]Dr. Nahed Yañez EO # 0.0 103/ul Normal 0.0-0.[address] [facility] Comment on above: Performed By: #### C BC ####[facility] [address] [place] [id number]. Nahed Yañez Eosinophils/100 WBC (Bld) 0.0 % Critically low 0.9-7.[address] [facility] Comment on above: Performed By: #### C BC ####[facility] [address] [place] [address]Dr. Nahed Yañez Erythrocyte distribution width (RBC) [Ratio] 14.2 % Normal 11.0-15.[address] [facility] Comment on above: Performed By: #### C BC ####[facility] I[address]bkfgihb[address] [place], [place] [address]Dr. Nahed Yañez Hematocrit (Bld) [Volume fraction] 36.0 % Normal 36.0-48.[address] [facility] Comment on above: Performed By: #### C BC ####[facility] Vznnwhnsbg[address] [place], [place] [address]Dr. Nahed Yañez Hemoglobin (Bld) [Mass/Vol] 11.4 g/dL Critically low 12.0-16.[address] [facility] Comment on above: Performed By: #### C BC ####[facility] Tzfzzyfrno[address] [place], [place] [address]Dr. Nahed Yañez IG # 0.21 10e3/ul Critically high 0.00-0.03 The [facility] Comment on above: Performed By: #### C BC ####[facility] [address]tngdwlfp[address] [place] [id number]. Nahed Yañez IG % 1.8 % Critically high 0.0-0.5 The [facility] Comment on above: Performed By: #### C BC ####[facility] Txutwesjiq8[address] [place], [place] [address]Dr. Nahed Yañez LYMPH # 1.3 103/ul Normal 1.2-3.[address] [facility] Comment on above: Performed By: #### C BC ####[facility] Wtpohwpbye23[address] [place], [place] [address]Dr. Nahed Yañez Lymphocytes/100 WBC (Bld) 11.2 % Critically low 20.5-60.[address] [facility] Comment on above: Performed By: #### C BC ####[facility] [address]tewblnjbt4[address] [place] [address]Dr. Nahed Yañez MANUAL DIFF REQ NO Normal [facility] Comment on above: Performed By: #### C BC ####[facility] Pxxqsbpmvo8635 [place] [address]Dr. Nahed Yañez MCH (RBC) [Entitic mass] 27.7 pg Normal 26.7-34.[address] [facility] Comment on above: Performed By: #### C BC ####[facility] Deweqkuytg23[address] [place], [place] [address]Dr. Nahed Yañez MCHC (RBC) [Mass/Vol] 31.7 g/dL Normal 29.9-35.[address] [facility] Comment on above: Performed By: #### C BC ####[facility] Esgwbqukvw26[address] [place], [place] [address]Dr. Nahed Yañez MCV (RBC) [Entitic vol] 87.6 fL Normal 81.0-99.[address] [facility] Comment on above: Performed By: #### C BC ####[facility] Gzghltuikq18[address] [place], [place] [address]Dr. Nahed Yañez MONO # 0.8 103/ul Normal 0.3-0.[address] [facility] Comment on above: Performed By: #### C BC ####[facility] Crbybejjso5[address] [place], [place] [address]Dr. Nahed Yañez Monocytes/100 WBC (Bld) 7.0 % Normal 1.7-12.[address] [facility] Comment on above: Performed By: #### C BC ####[facility] Amdkxrbhqu3[address] [place], [place] [address]Dr. Nahed Yañez NEUT # 9.2 103/ul Critically high 1.4-6.5 [facility] Comment on above: Performed By: #### C BC ####[facility] Icblvonzvo4[address] [place], [place] [address]Dr. Nahed Yañez Neutrophils/100 WBC (Bld) 79.8 % Critically high 43.0-75.0 [facility] Comment on above: Performed By: #### C BC ####[facility] Rzjcknnryp4260 [place] [address]Dr. Nahed Yañez Platelet mean volume (Bld) [Entitic vol] 9.8 fL Normal 9.5-13.[address] [facility] Comment on above: Performed By: #### C BC ####[facility] Melkuuspfl9503 [place] [address]Dr. Nahed aYñez PLT 317 103/ul Normal 150-[address] [facility] Comment on above: Performed By: #### C BC ####[facility] Abqasegujd4760 [place] [address]Dr. Nahed Yañez RBC 4.11 106/ul Critically low 4.20-5.40 [facility] Comment on above: Performed By: #### C BC ####[facility] Wfqxoxtrgl0024 [place] [address]Dr. Nahed Yañez WBC 11.5 103/ul Critically high 4.0-11.0 The [facility] Comment on above: Performed By: #### C BC ####[facility] Enssvuuobh[address] [place], [place] [address]Dr. Nahed Yañez MAGNESIUMon 07-31-2022 Magnesium [Mass/Vol] 1.8 mg/dL Normal 1.8-2.4 [facility] Comment on above: Performed By: #### M JUDY Moore, CMP ####[facility] Xozfkepeua225[address] [place] [address]Dr. Nahed Yañez POINT OF CARE GLUCOSEon -2 0-2022 Glucose [Mass/Vol] 217 mg/dL Critically high 74-106 [facility] Comment on above: Performed By: #### P OCGLUC ####[facility] Hctxiorwjg4346 [place] [address]Dr. Nahed Yañez Glucose [Mass/Vol] 169 mg/dL Critically high 74-106 [facility] Comment on above: Performed By: #### P OCGLUC ####[facility] Wseajpcrmi3641 [place] [id number]. Nahed Yañez Glucose [Mass/Vol] 297 mg/dL Critically high 74-106 [facility] Comment on above: Performed By: #### P OCGLUC ####[facility] Uiwsmgpayd6601 [place] [phone]. Nahed Yañez Glucose [Mass/Vol] 233 mg/dL Critically high 74-106 [facility] Comment on above: Performed By: #### P OCGLUC ####[facility] Vdkxxngnum2650 [place] [address]Dr. Nahed Yañez PROF 14(COMP METB)on 023 Albumin [Mass/Vol] 3.0 g/dL Critically low 3.4-5.0 [facility] Comment on above: Performed By: #### JUDY Castro, CMP ####[facility] Ngvjrezqbv2486 [place] [address]Dr. Nahed Yañez Albumin/Globulin [Mass ratio] 0.8 {ratio} Normal [facility] Comment on above: Performed By: #### JUDY Castro, CMP ####[facility] Amniaahdnj2768 [place] [address]Dr. Nahed Yañze ALP [Catalytic activity/Vol] 83 U/L Normal 46-116 [facility] Comment on above: Performed By: #### JUDY Castro, CMP ####[facility] Inlbsrqtao0548 [place] [address]Dr. Nahed Yañez ALT [Catalytic activity/Vol] 21 U/L Normal 14-59 [facility] Comment on above: Performed By: #### JUDY Castro, CMP ####[facility] Fwurcjulsr6011 [place] [address]Dr. Nahed Yañez Anion gap [Moles/Vol] 14.8 mmol/L Normal [facility] Comment on above: Performed By: #### JUDY Castro, CMP ####[facility] Bkajcvmtnp4061 [place] [address]Dr. Nahed Yañez AST [Catalytic activity/Vol] 13 U/L Critically low 15-37 [facility] Comment on above: Performed By: #### JUDY Castro CMP ####[facility] Mrxoasrhyv[address] [place], [place] [address]Dr. Nahed Yañez Bilirubin [Mass/Vol] 0.2 mg/dL Normal 0.2-1.0 [facility] Comment on above: Performed By: #### JUDY Castro CMP ####[facility] Aactfdovhv226[address] [place], [place] [address]Dr. Nahed Yañez Calcium [Mass/Vol] 9.2 mg/dL Normal 8.5-10.1 [facility] Comment on above: Performed By: #### JUDY Castro, CMP ####[facility] Ugzhhmvbhy964[address] [place], [place] [address]Dr. Nahed Yañez Chloride [Moles/Vol] 101 mmol/L Normal 98-107 [facility] Comment on above: Performed By: #### JUDY Castro, CMP ####[facility] Jdhqthvozi7869[address] [place], [place] [address]Dr. Nahed Yañez CO2 [Moles/Vol] 26.5 mmol/L Normal 21.0-32.0 [facility] Comment on above: Performed By: #### JUDY Castro, CMP ####[facility] Whzgbekdtz493[address] [place], [place] [address]Dr. Nahed Yañez Creatinine [Mass/Vol] 1.04 mg/dL Critically high 0.55-1.02 [facility] Comment on above: Performed By: #### JUDY Castro, CMP ####[facility] Ntwsoraukk5[address] [place], [place] [address]Dr. Nahed Yañez EGFR-AF OMANI >60 Normal >=60 [facility] Comment on above: Performed By: #### JUDY Castro CMP ####[facility] Hexoxclyly[address] [place], [place] [address]Dr. Nahed Yañez EGFR-NON AF OMANI 54 mL/min/1.73m2 Critically low >=60 [facility] Comment on above: Performed By: #### JUDY Castro, CMP ####[facility] Mepgodnwld0584 [place] [address]Dr. Nahed Yañez Globulin (S) [Mass/Vol] 3.6 g/dL Normal [facility] Comment on above: Performed By: #### JUDY Castro, CMP ####[facility] Swlvyskjkq1769 [place] [address]Dr. Nahed Yañez Glucose [Mass/Vol] 171 mg/dL Critically high 74-106 [facility] Comment on above: Performed By: #### JUDY Castro, CMP ####[facility] Qjexawilpy759[address] [place], [place] [address]Dr. Rosemarieashley Yañez Potassium [Moles/Vol] 3.3 mmol/L Critically low 3.5-5.1 [facility] Comment on above: Performed By: #### JUDY Castro CMP ####[facility] Rrvlzivhux23[address] [place], [place] [address]Dr. Nahed Yañez Protein [Mass/Vol] 6.6 g/dL Normal 6.4-8.2 [facility] Comment on above: Performed By: #### JUDY Castro CMP ####[facility] Rvdazxxbxn[address] [place], [place] [address]Dr. Nahed Otilio Sodium [Moles/Vol] 139 mmol/L Normal 136-145 [facility] Comment on above: Performed By: #### JUDY Castro, CMP ####[facility] Lwlmoyoabi5177[address] [place], [place] [address]Dr. Nahed Otilio Urea nitrogen [Mass/Vol] 23.0 mg/dL Critically high 7.0-18.0 [facility] Comment on above: Performed By: #### JUDY Castro, CMP ####[facility] Sscngxpcqw010[address] [place], [place] [address]Dr. Rosemarieashley Otilio Urea nitrogen/Creatinine [Mass ratio] 22.1 mg/mg Normal [facility] Comment on above: Performed By: #### JUDY Castro CMP ####[facility] Btbaqgonqv[address] [place], [place] [address]Dr. Nahed Yañez THEOPHYLLINEon 07-31-2022 THEOPHYLLINE 14.2 ug/mL Normal 10.0-20.[address] [facility] Comment on above: Performed By: #### M JUDY Moore, [facility] ####[facility] Luvmjtegqt2146 [place] [address]Dr. Nahed Yañez BLOOD CULTURE ID PANELon A. baumannii Not detected Normal NOT DETECTED [facility] Comment on above: Performed By: #### B CID2 ####[facility] Unyzsbwriq0338 [place] [address]Dr. Nahed Yañez Bacteriodes fragilis Not detected Normal NOT DETECTED [facility] Comment on above: Performed By: #### B CID2 ####[facility] Fyhulfolwz[address] [place], [place] [address]Dr. Nahed Yañez BCID CONTROLS PASSED Normal [facility] Comment on above: Performed By: #### B CID2 ####[facility] Labxpyvxjl8196 [place] [address]Dr. Rosemarieashley Otilio BCIDBTHD BLOOD CULTURE BOTTLE INFORMATION Normal [facility] Comment on above: Performed By: #### B CID2 ####[facility] Ptxpdulbxq6498 [place] [address]Dr. Yiashley Yañez BCIDHD1 ANTIMICROBIAL RESISTANCE GENES Normal [facility] Comment on above: Performed By: #### B CID2 ####[facility] Lbwnumghdf3244 [place] [address]Dr. Nahed Yañez BCIDHD2 SEE BELOW Normal [facility] Comment on above: Result Comment: Note : Antimicrobial resitance can occur via multiple mechanisms. A Not Detected result for the [employer] antomicrobial resistance gene assays does not indicate antimicrobial susceptibility. Subculturing is required for species identification and susceptibility testing of isolates. Performed By: #### B CID2 ####[facility] [address]qfadsxwzr[address] [place], [place] [address]Dr. Nahed Yañez BCIDHD3 Positive Normal [facility] Comment on above: Performed By: #### B CID2 ####[facility] Xyacbmtydl940[address] [place], [place] [address]Dr. Nahed Yañez BCIDHD4 Negative Normal [facility] Comment on above: Performed By: #### B CID2 ####[facility] Ozecpwpzzl0961 [place] [address]Dr. Nahed Yañez BCIDHD5 YEAST Normal [facility] Comment on above: Performed By: #### B CID2 ####[facility] Uforykcvza9240 [place] [address]Dr. Yilan Yañez Bottle Set: Set [address] [facility] Comment on above: Performed By: #### B CID2 ####[facility] Xstnyxjtcr25[address] [place], [place] [address]Dr. Nahed Yañez Bottle: Pediatric Normal [facility] Comment on above: Performed By: #### B CID2 ####[facility] Qkpilalcvr6530[address] [place], [place] [address]Dr. Nahed Yañez C. neoformans/gattii Not detected Normal NOT DETECTED [facility] Comment on above: Performed By: #### B CID2 ####[facility] Gebchalntv2150[address] [place], [place] [address]Dr. Yiashley Yañez Sil albicans Not detected Normal NOT DETECTED [facility] Comment on above: Performed By: #### B CID2 ####[facility] Qmsbqthapb4025[address] [place], [place] [address]Dr. Nahed Yañez Sil auris Not detected Normal NOT DETECTED [facility] Comment on above: Performed By: #### B CID2 ####[facility] Myzfumdyaq4497[address] [place], [place] [address]Dr. Yiashley Yañez Sil glabrata Not detected Normal NOT DETECTED [facility] Comment on above: Performed By: #### B CID2 ####[facility] Jvminqnoko4838 [place] [address]Dr. Yiashley Yañez Sil Krusei Not detected Normal NOT DETECTED [facility] Comment on above: Performed By: #### B CID2 ####[facility] Nfrecjdyhs5211 [place] [address]Dr. Yiashley Yañez Sil Parapsilosis Not detected Normal NOT DETECTED [facility] Comment on above: Performed By: #### B CID2 ####[facility] Oemrtidxaf596[address] [place], [place] [address]Dr. Nahed Yañez Sil Tropicalis Not detected Normal NOT DETECTED [facility] Comment on above: Performed By: #### B CID2 ####[facility] Ydgochjcyj6723[address] [place], [place] [address]Dr. Nahed Yañez CTX-M Resistant Gene Not Applicable Normal NOT DETECTE D [facility] Comment on above: Performed By: #### B CID2 ####[facility] Nrekqpgpmc2932[address] [place], [place] [address]Dr. Nahed Yañez E. Cloacae complex Not detected Normal NOT DETECTED [facility] Comment on above: Performed By: #### B CID2 ####[facility] Jfjbdhafyi853[address] [place], [place] [address]Dr. Nahed Yañez E. faecalis Not detected Normal NOT DETECTED [facility] Comment on above: Performed By: #### B CID2 ####[facility] Tjdplaumwq4150[address] [place], [place] [address]Dr. Nahed Yañez E. faecium Not detected Normal NOT DETECTED The [facility] Comment on above: Performed By: #### B CID2 ####[facility] Fmsyndyyhc88668[address] [place], [place] [address]Dr. Nahed Yañez Enterobacteriaceae Not detected Normal NOT DETECTED [facility] Comment on above: Performed By: #### B CID2 ####[facility] Vijwlosdnj31988[address] [place], [place] [address]Dr. Nahed Yañez Escherichia coli Not detected Normal NOT DETECTED [facility] Comment on above: Performed By: #### B CID2 ####[facility] Jrnbumlzzi7549[address] [place], [place] [address]Dr. Nahed Yañez H. influenzae Not detected Normal NOT DETECTED [facility] Comment on above: Performed By: #### B CID2 ####[facility] Lgokvkqwyw4779[address] [place], [place] [address]Dr. Nahed Yañez IMP Resistant Gene Not Applicable Normal NOT DETECTED [facility] Comment on above: Performed By: #### B CID2 ####[facility] Nrzxstzanb262189 [address] [place], [place] [address]Dr. Nahed Yañez K. oxytoca Not detected Normal NOT DETECTED [facility] Comment on above: Performed By: #### B CID2 ####[facility] Mitfpavaqm59488[address] [place], [place] [address]Dr. Nahed Otilio K. pneumoniae Not detected Normal NOT DETECTED [facility] Comment on above: Performed By: #### B CID2 ####[facility] Xajvdphaak444[address] [place], [place] [address]Dr. Nahed Otilio Klebsiella aerogenes Not detected Normal NOT DETECTED [facility] Comment on above: Performed By: #### B CID2 ####[facility] Zqfzharmhi1327[address] [place], [place] [address]Dr. Nahed Yañez KPC Resistant Gene Not detected Normal NOT DETECTED [facility] Comment on above: Performed By: #### B CID2 ####[facility] Udrxrqxzva739[address] [place], [place] [address]Dr. Nahed Yañez List. monocytogenes Not detected Normal NOT DETECTED [facility] Comment on above: Performed By: #### B CID2 ####[facility] Feludxgurs6380[address] [place], [place] [address]Dr. Rosemarieashley Otilio Mcr-1 Resistant Gene Not Applicable Normal NOT DETECTE D [facility] Comment on above: Performed By: #### B CID2 ####[facility] Frqknqwlvn225[address] [place], [place] [address]Dr. Rosemarielan Otilio mecA/C Not Applicable Normal NOT DETECTED [facility] Comment on above: Performed By: #### B CID2 ####[facility] Yfgujsspwb107[address] [place], [place] [address]Dr. Rosemarieashley Otilio mecA/C MREJ Not Applicable Normal NOT DETECTED [facility] Comment on above: Performed By: #### B CID2 ####[facility] Jetwbehixd769189 [address] [place], [place] [address]Dr. Nahed Yañez N. meningitidis Not detected Normal NOT DETECTED The [facility] Comment on above: Performed By: #### B CID2 ####[facility] Alnerkpyob240[address] [place], [place] [address]Dr. Nahed Yañez NDM Resistant Gene Not Applicable Normal NOT DETECTED [facility] Comment on above: Performed By: #### B CID2 ####[facility] Odyzvrighj0650[address] [place], [place] [address]Dr. Nahed Yañez Oxa-48-like Not Applicable Normal NOT DETECTED [facility] Comment on above: Performed By: #### B CID2 ####[facility] Johqatkhsq347[address] [place], [place] [address]Dr. Rosemarieashley Yañez Proteus Not detected Normal NOT DETECTED The [facility] Comment on above: Performed By: #### B CID2 ####[facility] Ktoitbyrtr1933[address] [place], [place] [address]Dr. Nahed Yañez Pseud. aeruginosa Not detected Normal NOT DETECTED [facility] Comment on above: Performed By: #### B CID2 ####[facility] Vknzubrmvk[address] [place], [place] [address]Dr. Nahed Yañez S. maltophilia Not detected Normal NOT DETECTED [facility] Comment on above: Performed By: #### B CID2 ####[facility] Rhsevelapi930[address] [place], [place] [address]Dr. Rosemarieashley Yañez Salmonella Not detected Normal NOT DETECTED The [facility] Comment on above: Performed By: #### B CID2 ####[facility] Epdpjeuoej275189 [address] [place], [place] [address]Dr. Nahed Yañez Seratia marcescens Not detected Normal NOT DETECTED [facility] Comment on above: Performed By: #### B CID2 ####[facility] Vebztsfnms8[address] [place], [place] [address]Dr. Nahed Yañez Site: R AC Normal [facility] Comment on above: Performed By: #### B CID2 ####[facility] Bkevofelql898[address] [place], [place] [address]Dr. Nahed Yñaez Staph. aureus Not detected Normal NOT DETECTED [facility] Comment on above: Performed By: #### B CID2 ####[facility] Xonsroogsh9217[address] [place], [place] [address]Dr. Nahed Yañez Staph. epidermidis Not detected Normal NOT DETECTED [facility] Comment on above: Performed By: #### B CID2 ####[facility] Lzoykewuby7934[address] [place], [place] [address]Dr. Nahed Yañez Staph. lugdunensis Not detected Normal NOT DETECTED [facility] Comment on above: Performed By: #### B CID2 ####[facility] Fqpufayyye8[address] [place], [place] [address]Dr. Nahed Yañez Staphylococcus Detected Critically abnormal NOT DETECTED [facility] Comment on above: Performed By: #### B CID2 ####[facility] Dzbyggjlzj[address] [place], [place] [address]Dr. Nahed Yañez Strep. agalactiae Not detected Normal NOT DETECTED [facility] Comment on above: Performed By: #### B CID2 ####[facility] Nkehnhnqlu70668[address] [place], [place] [address]Dr. Nahed Yañez Strep. pneumoniae Not detected Normal NOT DETECTED [facility] Comment on above: Performed By: #### B CID2 ####[facility] Scrrpxouef814[address] [place], [place] [address]Dr. Nahed Yañez Strep. pyogenes Not detected Normal NOT DETECTED The [facility] Comment on above: Performed By: #### B CID2 ####[facility] Dvmbcurnln3915[address] [place], [place] [address]Dr. Nahed Yañez Streptococcus Not detected Normal NOT DETECTED [facility] Comment on above: Performed By: #### B CID2 ####[facility] Qavclizeeq0877[address] [place], [place] [address]Dr. Nahed Yañez Tucker/B Resist. Gene Not detected Normal NOT DETECTED [facility] Comment on above: Performed By: #### B CID2 ####[facility] Ukqpusobhz6[address] [place], [place] [address]Dr. Nahed Yañez VIM Resistant Gene Not Applicable Normal NOT DETECTED [facility] Comment on above: Performed By: #### B CID2 ####[facility] Ilhktywdja9764[address] [place], [place] [address]Dr. Nahed Yañez CARDIAC FRANCISCO 3-6on 3 CK [Catalytic activity/Vol] 25 U/L Critically low 26-[address] [facility] Comment on above: Performed By: #### C MREP ####[facility] Suojnlwwjl4535 [place] [id number]. Nahed Yañez CK.MB [Mass/Vol] ng/mL Normal <=3.60 [facility] Comment on above: Performed By: #### C MREP ####[facility] Biszjnmxej4388 [place] [id number]. Nahed Yañez HSTROP 35.8 pg/mL Normal 4.0-51.[address] [facility] Comment on above: Result Comment: CUT- OFF POINTS HAVE BEEN ESTABLISHED BASED ON THE FOURTH UNIVERSAL DEFINITIONS OF MYOCARDIALINFARCTION. THE UPPER REFERENCE LIMIT (URL) OF TROPONIN, DEFINED THE 99TH PERCENTILE OFcTnI DISTRIBUTION IN A REFERENCE POPULATION, HAS BEEN CONFIRMED THE DECISION THRESHOLDFOR VT DIAGNOSIS. Performed By: #### C MREP ####[facility] Fidlwvnhvl9030 [place] [address]Dr. Nahed Yañez CK [Catalytic activity/Vol] 28 U/L Normal 26-[address] [facility] Comment on above: Performed By: #### C MREP ####[facility] Qesktxzvsv5638 [place] [id number]. Nahed Yañez CK.MB [Mass/Vol] ng/mL Normal <=3.60 [facility] Comment on above: Performed By: #### C MREP ####[facility] Vitpcwzrxv1281 [place] [address]Dr. Nahed Yañez HSTROP 36.8 pg/mL Normal 4.0-51.[address] [facility] Comment on above: Result Comment: CUT- OFF POINTS HAVE BEEN ESTABLISHED BASED ON THE FOURTH UNIVERSAL DEFINITIONS OF MYOCARDIALINFARCTION. THE UPPER REFERENCE LIMIT (URL) OF TROPONIN, DEFINED THE 99TH PERCENTILE OFcTnI DISTRIBUTION IN A REFERENCE POPULATION, HAS BEEN CONFIRMED THE DECISION THRESHOLDFOR VT DIAGNOSIS. Performed By: #### C MREP ####[facility] Jebbouykkq8976 [place] [address]Dr. Nahed Yañez CBC AUTO DIFFon 07-30-2022 BASO # 0.0 103/ul Normal 0.0-0.[address] [facility] Comment on above: Performed By: #### C BC ####[facility] Qwfjpifoed2980 [place] [id number]. Nahed Yañez Basophils/100 WBC (Bld) 0.1 % Critically low 0.2-2.[address] [facility] Comment on above: Performed By: #### C BC ####[facility] Qtfteofsrj5343 [place] [id number]. Nahed Yañez EO # 0.0 103/ul Normal 0.0-0.[address] [facility] Comment on above: Performed By: #### C BC ####[facility] Hkdkqzmhle7212 [place] [address]Dr. Nahed Yañez Eosinophils/100 WBC (Bld) 0.0 % Critically low 0.9-7.0 [facility] Comment on above: Performed By: #### C BC ####[facility] Ifurchqjut8987[address] [place], [place] [address]Dr. Nahed Yañez Erythrocyte distribution width (RBC) [Ratio] 14.4 % Normal 11.0-15.0 [facility] Comment on above: Performed By: #### C BC ####[facility] Vkloqqbwbb[address] [place], [place] [address]Dr. Nahed Yañez Hematocrit (Bld) [Volume fraction] 37.7 % Normal 36.0-48.0 [facility] Comment on above: Performed By: #### C BC ####[facility] Ouwfhaawfx[address] [place], [place] [address]Dr. Nahed Yañez Hemoglobin (Bld) [Mass/Vol] 12.1 g/dL Normal 12.0-16.[address] [facility] Comment on above: Performed By: #### C BC ####[facility] Iizmrkyjah[address] [place], [place] [address]Dr. Nahed Yañez IG # 0.07 10e3/ul Critically high 0.00-0.03 [facility] Comment on above: Performed By: #### C BC ####[facility] Hmwgwktj[address] [place], [place] [id number]. Nahed Yañez IG % 0.5 % Normal 0.0-0.[address] [facility] Comment on above: Performed By: #### C BC ####[facility] Ycklsincdh6101 [place] [id number]. Nahed Yañez LYMPH # 1.0 103/ul Critically low 1.2-3.8 The [facility] Comment on above: Performed By: #### C BC ####[facility] Nuqczkency5288 [place] [phone]. Nahed Yañez Lymphocytes/100 WBC (Bld) 7.6 % Critically low 20.5-60.0 [facility] Comment on above: Performed By: #### C BC ####[facility] Gwuwxhutfd3538 [place] [phone]. Nahed Yañez MANUAL DIFF REQ NO Normal [facility] Comment on above: Performed By: #### C BC ####[facility] Dujwjvkwhw2748 [place] [phone]. Nahed Yañez MCH (RBC) [Entitic mass] 28.8 pg Normal 26.7-34.0 [facility] Comment on above: Performed By: #### C BC ####[facility] Ecnhmyrdcn8120 [place] [phone]. Nahed Yañez MCHC (RBC) [Mass/Vol] 32.1 g/dL Normal 29.9-35.2 [facility] Comment on above: Performed By: #### C BC ####[facility] Mrzaribuso4209 [place] [phone] Yañez MCV (RBC) [Entitic vol] 89.8 fL Normal 81.0-99.0 [facility] Comment on above: Performed By: #### C BC ####[facility] Zpxgfvmrzm5053 [place] [phone] Yañez MONO # 0.2 103/ul Critically low 0.3-0.8 [facility] Comment on above: Performed By: #### C BC ####[facility] Azfrjtqony8556 [place] [phone]. Nahed Yañez Monocytes/100 WBC (Bld) 1.5 % Critically low 1.7-12.0 [facility] Comment on above: Performed By: #### C BC ####[facility] Tamkfpkxmw1129 [place] [phone]. Nahed Yañez NEUT # 11.7 103/ul Critically high 1.4-6.5 [facility] Comment on above: Performed By: #### C BC ####[facility] Ylykynubqz4095 [place] [phone]. Nahed Yañez Neutrophils/100 WBC (Bld) 90.3 % Critically high 43.0-75.0 [facility] Comment on above: Performed By: #### C BC ####[facility] Usfcdjwhjv7071 [place] [phone]. Nahed Yañez Platelet mean volume (Bld) [Entitic vol] 9.9 fL Normal 9.5-13.5 [facility] Comment on above: Performed By: #### C BC ####[facility] Itoxpuzkeo8795 [place] [address]Dr. Nahed Yañez PLT 319 103/ul Normal 150-[address] [facility] Comment on above: Performed By: #### C BC ####[facility] Cyigtibbsl[address] [place], [place] [address]Dr. Nahed Yañez RBC 4.20 106/ul Normal 4.20-5.[address] [facility] Comment on above: Performed By: #### C BC ####[facility] Ginlhoxffa[address] [place], [place] [address]Dr. Nahed Yañez WBC 13.0 103/ul Critically high 4.0-11.0 [facility] Comment on above: Performed By: #### C BC ####[facility] Xmntmrwcth9130 [place] [phone]. Nahed Yañez CULTURE BLOODon 07-30-2022 Microscopic examination of blood, culture Culture Observations: NO GROWTH AT 5 DAYS. Normal [facility] Comment on above: Performed By: #### B LDCX1 ####[facility] Bwuxvfgjsg8859 [place] [phone]. Nahed Yañez CULTURE SPUTUMon 07-30-2022 CULTURE SPUTUM Culture Observations : NORMAL RESPIRATORY MIGUEL. Normal [facility] Comment on above: Performed By: #### S PUTCX ####[facility] Hqdwcenhyp2873 [place] [address]Dr. Nahed Yañez CULTURE URINEon 07-30-2022 CULTURE URINE Culture Observations : MODERATE GROWTH OF MIXED GENITAL MIGUEL. NO POTENTIAL PATHOGENS SEEN. Normal [facility] Comment on above: Performed By: #### U RCX ####[facility] Mzlkjznkrw2197 [place] [address]Dr. Nahed Yañez Covid-19 PCR (CVDTB)on 07-12 SARS-CoV-2 (COVID-19) RNA MIRNA+probe Ql (Unsp spec) Not detected Normal NOT DETECTED [facility] Comment on above: Result Comment: When [...] for this test is supported by the [place] of [employer] and Human Service's declaration that [...] be used). Performed By: #### C VDTBH ####[facility] Wczfttvssc7842 [place] [phone]. Nahed Yañez ER URINE PROFILEon 3 Bilirubin Ql (U) Negative Normal NEGATIVE [facility] Comment on above: Performed By: #### E YARELIS ALCARAZ ####[facility] Tdafxycmto2817 [place] [phone]. Nahed Yañez Clarity (U) CLEAR Normal CLEAR [facility] Comment on above: Performed By: #### E YARELIS ALCARAZ ####[facility] Ljykcupmah1286 [place] [address]Dr. Nahed Yañez Color (U) LT. YELLOW Normal YELLOW [facility] Comment on above: Performed By: #### NUNU DOVERO ####[facility] Myphgvkshc9831 [place] [address]Dr. Nahed Yañez ERUAHD A micrscopic examination will be performed if indicated. Normal [facility] Comment on above: Performed By: #### NUNU DOVERO ####[facility] Muupejvlyz7007 [place] [address]Dr. Nahed Yañez Glucose Ql (U) 500 mg/dl Abnormal NEGATIVE The [facility] Comment on above: Performed By: #### NUNU DOVERO ####[facility] Rinqxpqfvi89[address] [place], [place] [address]Dr. Nahed Yañez Hemoglobin Ql (U) Negative Normal NEGATIVE The [facility] Comment on above: Performed By: #### NUNU DOVERO ####[facility] Jswhrvtlca023[address] [place], [place] [address]Dr. Nahed Yañez Ketones Ql (U) Negative Normal NEGATIVE The [facility] Comment on above: Performed By: #### YARELIS DOVE ####[facility] Acktkpnqgv288[address] [place], [place] [address]Dr. Nahed Yañez LEUKOCYTES TRACE Abnormal NEGATIVE [facility] Comment on above: Performed By: #### NUNU DOVERO ####[facility] Yrutgvttgk1470[address] [place], [place] [address]Dr. Nahed Yañez Nitrite Ql (U) Negative Normal NEGATIVE [facility] Comment on above: Performed By: #### NUNU DOVERO ####[facility] Ciglhddtbg211[address] [place], [place] [address]Dr. Nahed Yañez pH (U) 6.0 [pH] Normal 5-[address] [facility] Comment on above: Performed By: #### YARELIS DOVE ####[facility] Bdqxyvfuzu5314[address] [place], [place] [address]Dr. Nahed Yañez SPEC GRAVITY >=1.030 Abnormal 1.005-<=1.02 5 [facility] Comment on above: Performed By: #### YARELIS DOVE ####[facility] Nqbvaqibka754[address] [place], [place] [address]Dr. Nahed Yañez UA PROTEIN Negative Normal NEGATIVE/ TRACE [facility] Comment on above: Performed By: #### YARELIS DOVE ####[facility] Tzmgnkkmbf8[address] [place], [place] [address]Dr. Nahed Yañez UR MICRO IND INDICATED Normal [facility] Comment on above: Performed By: #### YARELIS DOVE ####[facility] Hfdoypzhnu8855[address] [place], [place] [address]Dr. Nahed Yañez Urobilinogen Qn (U) 0.2 {Alem'U}/dL Normal 0.2 - 1. 0 [facility] Comment on above: Performed By: #### YARELIS DOVE ####[facility] Wsccukpfvp337[address] [place], [place] [address]Dr. Nahed Yañez INFLUENZA A AND B AGon 07-30 INFLUANEGH SEE BELOW Normal [facility] Comment on above: Result Comment: Nega tive for Flu A protein angiten. Infection due to Flu A cannot be ruled out. Flu A angiten in the sample may be below the detection limit of the test. Performed By: #### I NFLUAB ####[facility] Nmewukmnuc75[address] [place], [place] [address]Dr. Nahed Yañez INFLUBNEGH SEE BELOW Normal [facility] Comment on above: Result Comment: Nega tive for Flu B protein antigen. Infection due to Flu B cannot be ruled out. Flu B antigen in the sample may be below the detection limit of the test. Performed By: #### I NFLUAB ####[facility] Lgstrirkjp9570[address] [place], [place] [address]Dr. Nahed Yañez INFLUENZA A AG Negative Normal NEGATIVE SEE COMMENT [facility] Comment on above: Performed By: #### I NFLUAB ####[facility] Ysgxnmnpbb[address] [place], [place] [address]Dr. Nahed Yañez INFLUENZA B AG Negative Normal NEGATIVE SEE COMMENT [facility] Comment on above: Performed By: #### I NFLUAB ####[facility] Uxagsyexxu9626[address] [place], [place] [address]Dr. Nahed Yañez LACTATE/LACTIC ACIDon 2022 Lactate [Moles/Vol] 2.5 mmol/L Critically high 0.4-2.[address] [facility] Comment on above: Performed By: #### L ACT ####[facility] Zxrwhhbkyt32[address] [place], [place] [address]Dr. Nahed Yañez Lactate [Moles/Vol] 3.3 mmol/L Critically high 0.4-2.[address] [facility] Comment on above: Performed By: #### L ACT ####[facility] Ibfqwmamoh64[address] [place], [place] [address]Dr. Nahed Yañez Lactate [Moles/Vol] 2.7 mmol/L Critically high 0.4-2.[address] [facility] Comment on above: Performed By: #### L ACT ####[facility] Ehxaclsahl9337[address] [place], [place] [address]Dr. Nahed Yañez Lactate [Moles/Vol] 2.8 mmol/L Critically high 0.4-2.0 [facility] Comment on above: Performed By: #### L ACT ####[facility] Whwailwdny6260[address] [place], [place] [address]Dr. Nahed Yañez MAGNESIUMon 07-30-2022 Magnesium [Mass/Vol] 1.9 mg/dL Normal 1.8-2.[address] [facility] Comment on above: Performed By: #### M G, CMP ####[facility] Pkbezuitxx6733[address] [place], [place] [address]Dr. Nahed Yañez POINT OF CARE GLUCOSEon 07-12 Glucose [Mass/Vol] 220 mg/dL Critically high -106 [facility] Comment on above: Performed By: #### P OCGLUC ####[facility] Ugdawidlcj9277[address] [place], [place] [address]Dr. Nahed Yañez Glucose [Mass/Vol] 162 mg/dL Critically high 74-106 [facility] Comment on above: Result Comment: Kaycee clemosn Meter Performed By: #### P OCGLUC ####[facility] Gbcyunbxlo3723 [place] [address]Dr. Nahed Yañez PROF 14(COMP METB)on 023 Albumin [Mass/Vol] 2.9 g/dL Critically low 3.4-5.0 [facility] Comment on above: Performed By: #### Pablo Moore, CMP ####[facility] Wbfbrsggqr2945[address] [place], [place] [address]Dr. Nahed Yañez Albumin/Globulin [Mass ratio] 0.8 {ratio} Normal [facility] Comment on above: Performed By: #### Pablo Moore, CMP ####[facility] Imhqthlzwi636[address] [place], [place] [address]Dr. Nahed Yañez ALP [Catalytic activity/Vol] 94 U/L Normal 46-116 [facility] Comment on above: Performed By: #### Pablo Moore, CMP ####[facility] Jtnkzpmqzp65[address] [place], [place] [address]Dr. Nahed Yañez ALT [Catalytic activity/Vol] 22 U/L Normal 14-59 [facility] Comment on above: Performed By: #### Pablo Moore, CMP ####[facility] Ljrrlbrltz5620[address] [place], [place] [address]Dr. Nahed Yañez Anion gap [Moles/Vol] 12.4 mmol/L Normal [facility] Comment on above: Performed By: #### Pablo Moore, CMP ####[facility] Gdjssxulaa778[address] [place], [place] [address]Dr. Nahed Yañez AST [Catalytic activity/Vol] 18 U/L Normal 15-37 [facility] Comment on above: Performed By: #### Pablo Moore, CMP ####[facility] Igwgxbbyyf2532[address] [place], [place] [address]Dr. Nahed Yañez Bilirubin [Mass/Vol] 0.1 mg/dL Critically low 0.2-1.0 [facility] Comment on above: Performed By: #### Pablo Moore, CMP ####[facility] Ajikbylnlh1355[address] [place], [place] [address]Dr. Nahed Yañez Calcium [Mass/Vol] 8.9 mg/dL Normal 8.5-10.1 [facility] Comment on above: Performed By: #### M Teresa, CMP ####[facility] Gwzuwoxrdt5365 [place] [address]Dr. Nahed Yañez Chloride [Moles/Vol] 99 mmol/L Normal 98-[address] [facility] Comment on above: Performed By: #### M G, CMP ####[facility] Itlhtmkpsx4751 [place] [address]Dr. Nahed Yañez CO2 [Moles/Vol] 26.0 mmol/L Normal 21.0-32.0 [facility] Comment on above: Performed By: #### Pablo Moore, CMP ####[facility] Ovkdxooidl66[address] [place], [place] [address]Dr. Nahed Yañez Creatinine [Mass/Vol] 1.16 mg/dL Critically high 0.55-1.02 [facility] Comment on above: Performed By: #### Pablo Moore, CMP ####[facility] Skctvjnhkk635[address] [place], [place] [address]Dr. Nahed Otilio EGFR-AF OMANI 58 mL/min/1.73m2 Critically low >=60 [facility] Comment on above: Performed By: #### Pablo Moore, CMP ####[facility] Oslvstsutg0735[address] [place], [place] [address]Dr. Nahed Otilio EGFR-NON AF OMANI 47 mL/min/1.73m2 Critically low >=[address] [facility] Comment on above: Performed By: #### Pablo Moore, CMP ####[facility] Ghhfodsvlu8098 [place] [address]Dr. Nahed Otilio Globulin (S) [Mass/Vol] 3.7 g/dL Normal [facility] Comment on above: Performed By: #### Pablo Moore, CMP ####[facility] Nsfgfpkfot9712 [place] [address]Dr. Nahed Yañez Glucose [Mass/Vol] 267 mg/dL Critically high 74-106 [facility] Comment on above: Performed By: #### Pablo Moore, CMP ####[facility] Kziotcaxep6438 [place] [address]Dr. Nahed Yañez Potassium [Moles/Vol] 4.4 mmol/L Normal 3.5-5.1 [facility] Comment on above: Performed By: #### Pablo G, CMP ####[facility] Anjhqvyahq859[address] [place], [place] [address]Dr. Nahed Yañez Protein [Mass/Vol] 6.6 g/dL Normal 6.4-8.[address] [facility] Comment on above: Performed By: #### Pablo Moore, CMP ####[facility] Pvxlabsjru0681 [place] [address]Dr. Nahed Yañez Sodium [Moles/Vol] 133 mmol/L Critically low 136-145 [facility] Comment on above: Performed By: #### Pablo Moore, CMP ####[facility] Pahcxbdtjw728[address] [place], [place] [address]Dr. Nahed Yañez Urea nitrogen [Mass/Vol] 33.0 mg/dL Critically high 7.0-18.0 [facility] Comment on above: Performed By: #### Pablo Moore, CMP ####[facility] Jerxewxlit5260[address] [place], [place] [address]Dr. Nahed Yañez Urea nitrogen/Creatinine [Mass ratio] 28.4 mg/mg Normal [facility] Comment on above: Performed By: #### Pablo Moore, CMP ####[facility] Dijdvdwqzb7590[address] [place], [place] [address]Dr. Nahed Yañez SPUTUM GRAM STAINon 07-31-19 COMMENTS Normal [facility] Comment on above: Performed By: #### S PUTGS ####[facility] Dlxkmtbsxw497[address] [place], [place] [address]Dr. Nahed Yañez DIPHTHEROIDS Normal [facility] Comment on above: Performed By: #### S PUTGS ####[facility] Wiwtoucenh739[address] [place], [place] [address]Dr. Nahed Yañez EPITHELIALS <25 Normal [facility] Comment on above: Performed By: #### S PUTGS ####[facility] Zvraxzxqyw5516[address] [place], [place] [address]Dr. Nahed Yañez FUNGAL ELEMENTS Normal [facility] Comment on above: Performed By: #### S PUTGS ####[facility] Nfeguakcpq9811 [place] [address]Dr. Nahed Yañez GRAM NEG BACILLI Normal [facility] Comment on above: Performed By: #### S PUTGS ####[facility] Dmkksnfvks6345 [place] [address]Dr. Nahed Yañez GRAM NEG DIPPLOCOCCI Normal [facility] Comment on above: Performed By: #### S PUTGS ####[facility] Wgjloenfxe9021 [place] [address]Dr. Nahed Yañez GRAM POS BACILLI FEW Normal [facility] Comment on above: Performed By: #### S PUTGS ####[facility] Tzserzypah0279 [place] [address]Dr. Nahed Yañez GRAM POSITIVE COCCI FEW Normal [facility] Comment on above: Performed By: #### S PUTGS ####[facility] Dshofblghw7[address] [place], [place] [address]Dr. Nahed Yañez WBC (Bld) [#/Vol] 10*3/uL Normal [facility] Comment on above: Performed By: #### S PUTGS ####[facility] Bbubpjewgo78[address] [place], [place] [address]Dr. Nahed Yañez URINE MICROSCOPIC ONLYon BACTERIA SMALL Abnormal NONE SEEN [facility] Comment on above: Performed By: #### YARELIS DOVE ####[facility] Dmbqhlyveh7044 [place] [address]Dr. Nahed Yañez Bacteria identified Cx Nom (U) INDICATED Normal [facility] Comment on above: Performed By: #### NUNU DOVERO ####[facility] Ashigkvixr4798 [place] [address]Dr. Nahed Yañez CAST NONE SEEN Normal NONE SEEN [facility] Comment on above: Performed By: #### NUNU DOVERO ####[facility] Qyrlqhzlbf7815 [place] [address]Dr. Nahed Yañez Crystals LM Nom (Urine sed) NONE SEEN Normal NONE SEEN [facility] Comment on above: Performed By: #### Isidoro ALCARAZ UMICRO ####[facility] Zcyvpglwtl2966 [place] [address]Dr. Nahed Yañez Epithelial cells LM Ql (Urine sed) FEW Abnormal NONE SEEN /RARE [facility] Comment on above: Performed By: #### Isidoro ALCARAZ UMICRO ####[facility] Ooppisrzib1977 [place] [id number]. Nahed Yañez MUCOUS TRACE Abnormal NONE SEEN [facility] Comment on above: Performed By: #### Isidoro ALCARAZ UMICRO ####[facility] Htrhhqqssx2584 [place] [id number]. Nahed Yañez RBC 0-2 Normal 0-[address] [facility] Comment on above: Performed By: #### Isidoro ALCARAZ UMICRO ####[facility] Nvawyntdak4979 [place] [address]Dr. Nahed Yañez WBC 0-2 Abnormal NONE SEEN [facility] Comment on above: Performed By: #### Isidoro ALCARAZ UMICRO ####[facility] Wfdpyuoyvs6692 [place] [address]Dr. Nahed Yañez XR CHEST 1 Von 07-30-2022 XR CHEST 1 V Normal [facility] CARDIAC FRANCISCO ADMITon 023 CK [Catalytic activity/Vol] 59 U/L Normal 26-[address] [facility] Comment on above: Performed By: #### BLADIMIR SINGH ####[facility] Bxjxptemyl9072 [place] [address]Dr. Nahed Yañez CK.MB [Mass/Vol] 0.59 ng/mL Normal <=3.60 [facility] Comment on above: Performed By: #### BLADIMIR SINGH ####[facility] Aqtyodlzzk96[address] [place], [place] [address]Dr. Nahed Yañez HSTROP 40.7 pg/mL Normal 4.0-51.[address] [facility] Comment on above: Result Comment: CUT- OFF POINTS HAVE BEEN ESTABLISHED BASED ON THE FOURTH UNIVERSAL DEFINITIONS OF MYOCARDIALINFARCTION. THE UPPER REFERENCE LIMIT (URL) OF TROPONIN, DEFINED THE 99TH PERCENTILE OFcTnI DISTRIBUTION IN A REFERENCE POPULATION, HAS BEEN CONFIRMED THE DECISION THRESHOLDFOR [place] DIAGNOSIS. Performed By: #### C BLADIMIR AGRAWAL ####[facility] Twzykhkgly2043 [place] [address]Dr. Nahed Yañez ANDRE 89 ng/mL Critically high 9-82 [facility] Comment on above: Performed By: #### C BLADIMIR AGRAWAL ####[facility] Bgdgmpyymx8333 [place] [address]Dr. Nahed Otilio CBC AUTO DIFFon 07-29-2022 BASO # 0.0 103/ul Normal 0.0-0.[address] [facility] Comment on above: Performed By: #### C BC ####[facility] Otitccbbpc147[address] [place], [place] [address]Dr. Nahed Yañez Basophils/100 WBC (Bld) 0.1 % Critically low 0.2-2.[address] [facility] Comment on above: Performed By: #### C BC ####[facility] Pajaxqpynj4[address] [place], [place] [address]Dr. Nahed Otilio EO # 0.0 103/ul Normal 0.0-0.[address] [facility] Comment on above: Performed By: #### C BC ####[facility] Bsgfwxpvqs787[address] [place], [place] [address]Dr. Nahed Yañez Eosinophils/100 WBC (Bld) 0.0 % Critically low 0.9-7.[address] [facility] Comment on above: Performed By: #### C BC ####[facility] Zuzgsnhkkj[address] [place], [place] [address]Dr. Nahed Yañez Erythrocyte distribution width (RBC) [Ratio] 14.5 % Normal 11.0-15.[address] [facility] Comment on above: Performed By: #### C BC ####[facility] Wzcccbbnqp[address]40[address] [place], [place] [address]Dr. Rosemarieashley Otilio Hematocrit (Bld) [Volume fraction] 42.1 % Normal 36.0-48.[address] [facility] Comment on above: Performed By: #### C BC ####[facility] [address] [place] [address]Zh. Nahed Yañez Hemoglobin (Bld) [Mass/Vol] 13.4 g/dL Normal 12.0-16.[address] [facility] Comment on above: Performed By: #### C BC ####[facility] Dwynsnceen5189 [place] [address]Dr. Nahed Yañez IG # 0.07 10e3/ul Critically high 0.00-0.03 [facility] Comment on above: Performed By: #### C BC ####[facility] Vgfpmgldnt3269 [place] [address]Dr. Nahed Otilio IG % 0.5 % Normal 0.0-0.[address] [facility] Comment on above: Performed By: #### C BC ####[facility] Udyvryemyi7878 [place] [address]Dr. Rosemarieashley Otilio LYMPH # 3.2 103/ul Normal 1.2-3.[address] [facility] Comment on above: Performed By: #### C BC ####[facility] Vtldnbltlb[address] [place], [place] [address]Dr. Nahed Otilio Lymphocytes/100 WBC (Bld) 21.2 % Normal 20.5-60.[address] [facility] Comment on above: Performed By: #### C BC ####[facility] Lhwgtroweu4419 [place] [address]Dr. Nahed Otilio MANUAL DIFF REQ NO Normal [facility] Comment on above: Performed By: #### C BC ####[facility] Uxwdtdiqmi0777 [place] [address]Dr. Nahed Yañez MCH (RBC) [Entitic mass] 28.1 pg Normal 26.7-34.[address] [facility] Comment on above: Performed By: #### C BC ####[facility] Uxnryywmcn[address] [place], [place] [address]Dr. Nahed Otilio MCHC (RBC) [Mass/Vol] 31.8 g/dL Normal 29.9-35.[address] [facility] Comment on above: Performed By: #### C BC ####[facility] Yxorwjmzoo6[address] [place], [place] [address]Dr. Nahed Otilio MCV (RBC) [Entitic vol] 88.3 fL Normal 81.0-99.[address] [facility] Comment on above: Performed By: #### C BC ####[facility] Wdbbaxrdcw9181 [place] [address]Dr. Nahed Yañez MONO # 1.0 103/ul Critically high 0.3-0.8 [facility] Comment on above: Performed By: #### C BC ####[facility] Zzpdszqzmu6221 [place] [address]Dr. Nahed Yañez Monocytes/100 WBC (Bld) 6.3 % Normal 1.7-12.[address] [facility] Comment on above: Performed By: #### C BC ####[facility] H[address]qmpjhlng[address] [place], [place] [address]Dr. Nahed Otilio NEUT # 11.0 103/ul Critically high 1.4-6.5 [facility] Comment on above: Performed By: #### C BC ####[facility] Hquwyljhqy13[address] [place], [place] [address]Dr. Rosemarieashley Yañez Neutrophils/100 WBC (Bld) 71.9 % Normal 43.0-75.[address] [facility] Comment on above: Performed By: #### C BC ####[facility] Xbzjzqodvl9[address] [place], [place] [address]Dr. Rosemarieashley Yañez Platelet mean volume (Bld) [Entitic vol] 9.9 fL Normal 9.5-13.[address] [facility] Comment on above: Performed By: #### C BC ####[facility] Eckeagebsg[address] [place], [place] [address]Dr. Rosemarieashley Otilio PLT 385 103/ul Normal 150-[address] [facility] Comment on above: Performed By: #### C BC ####[facility] Gcimorjlxi[address] [place], [place] [address]Dr. Nahed Yañez RBC 4.77 106/ul Normal 4.20-5.[address] [facility] Comment on above: Performed By: #### C BC ####[facility] Tbhqepfhoe[address] [place], [place] [address]Dr. Nahed Yañez WBC 15.3 103/ul Critically high 4.0-11.0 [facility] Comment on above: Performed By: #### C BC ####[facility] [address]tjjul[address] [place] [address]Dr. Nahed Yañez PROF CHEM 8 (BAS METB)on Anion gap [Moles/Vol] 13.4 mmol/L Normal [facility] Comment on above: Performed By: #### C NGHIA, BMP ####[facility] Zjmyclbttd84[address] [place] [address]Dr. Nahed Yañez Calcium [Mass/Vol] 9.5 mg/dL Normal 8.5-10.[address] [facility] Comment on above: Performed By: #### C NGHIA, BMP ####[facility] Oxtmkyexmp[address] [place], [place] [address]Dr. Nahed Yañez Chloride [Moles/Vol] 101 mmol/L Normal 98-[address] [facility] Comment on above: Performed By: #### Isabell AGRAWAL, BMP ####[facility] Iakydsdawq[address] [place], [place] [address]Dr. Nahed Yañez CO2 [Moles/Vol] 27.9 mmol/L Normal 21.0-32.0 [facility] Comment on above: Performed By: #### Isabell AGRAWAL, BMP ####[facility] Oobawlvdhw[address] [place], [place] [address]Dr. Nahed Yañez Creatinine [Mass/Vol] 0.91 mg/dL Normal 0.55-1.02 [facility] Comment on above: Performed By: #### Isabell AGRAWAL, BMP ####[facility] Yeexdfmedy8[address] [place] [address]Dr. Nahed Otilio EGFR-AF OMANI >60 Normal >=60 [facility] Comment on above: Performed By: #### C NGHIA, BMP ####[facility] Fkkqgndqst50[address] [place] [address]Dr. Rosemarieashley Otilio EGFR-NON AF OMANI >60 Normal >=[address] [facility] Comment on above: Performed By: #### Isabell AGRAWAL, BMP ####[facility] Bgjusmakyz2345 [place] [address]Dr. Nahed Yañez Glucose [Mass/Vol] 100 mg/dL Normal 74-[address] [facility] Comment on above: Performed By: #### C NGHIA, BMP ####[facility] Ybckbtqkys[address] [place], [place] [address]Dr. Nahed Yañez Potassium [Moles/Vol] 4.3 mmol/L Normal 3.5-5.[address] [facility] Comment on above: Result Comment: samp le slightly hemolized Performed By: #### C NGHIA, BMP ####[facility] Lzzaoxrtnw80[address] [place], [place] [address]Dr. Nahed Yañez Sodium [Moles/Vol] 138 mmol/L Normal 136-[address] [facility] Comment on above: Performed By: #### C NGHIA, BMP ####[facility] Kbkhrpytyx08[address] [place], [place] [address]Dr. Nahed Yañez Urea nitrogen [Mass/Vol] 34.0 mg/dL Critically high 7.0-18.[address] [facility] Comment on above: Performed By: #### C NGHIA, BMP ####[facility] Nltgetctnj64[address] [place], [place] [address]Dr. Nahed Yañez Urea nitrogen/Creatinine [Mass ratio] 37.4 mg/mg Normal [facility] Comment on above: Performed By: #### C NGHIA, BMP ####[facility] Nqhfrwrgmp7[address] [place], [place] [address]Dr. Nahed Yañez BNPon 07-28-2022 Natriuretic peptide B (Bld) [Mass/Vol] 249.0 pg/mL Normal <=900.[address] [facility] Comment on above: Performed By: #### B COMMUNITY DEVELOPMENT WORKER ####[facility] Fcsjdtlgdq5534[address] [place], [place] [address]Dr. Nahed Yañez CBC AUTO DIFFon 07-28-2022 BASO # 0.0 103/ul Normal 0.0-0.[address] [facility] Comment on above: Performed By: #### C BC ####[facility] Sjqxznxkss[address] [place], [place] [address]Dr. Nahed Yañez Basophils/100 WBC (Bld) 0.1 % Critically low 0.2-2.[address] [facility] Comment on above: Performed By: #### C BC ####[facility] Adhunbbyep0379 [place] [address]Dr. Nahed Yañez EO # 0.0 103/ul Normal 0.0-0.[address] [facility] Comment on above: Performed By: #### C BC ####[facility] Vyrsrqpdlz[address] [place], [place] [address]Dr. Nahed Yañez Eosinophils/100 WBC (Bld) 0.0 % Critically low 0.9-7.[address] [facility] Comment on above: Performed By: #### C BC ####[facility] Keqanlgcpc[address] [place], [place] [address]Dr. Nahed Yañez Erythrocyte distribution width (RBC) [Ratio] 14.3 % Normal 11.0-15.0 [facility] Comment on above: Performed By: #### C BC ####[facility] Faaqfnimrw56[address] [place], [place] [address]Dr. Nahed Yañez Hematocrit (Bld) [Volume fraction] 38.7 % Normal 36.0-48.[address] [facility] Comment on above: Performed By: #### C BC ####[facility] Qiqxbixtoe264[address] [place], [place] [address]Dr. Nahed Yañez Hemoglobin (Bld) [Mass/Vol] 12.2 g/dL Normal 12.0-16.[address] [facility] Comment on above: Performed By: #### C BC ####[facility] Riboovzfvh[address] [place], [place] [address]Dr. Nahed Yañez IG # 0.06 10e3/ul Critically high 0.00-0.03 [facility] Comment on above: Performed By: #### C BC ####[facility] Gpdyhsohqc098[address] [place], [place] [address]Dr. Nahed Yañez IG % 0.5 % Normal 0.0-0.[address] [facility] Comment on above: Performed By: #### C BC ####[facility] Xrpgugnnco[address] [place], [place] [address]Dr. Rosemarieashley Yañez LYMPH # 0.7 103/ul Critically low 1.2-3.8 [facility] Comment on above: Performed By: #### C BC ####[facility] Fgjmzzktzz3584 [place] [address]Dr. Nahed Otilio Lymphocytes/100 WBC (Bld) 5.7 % Critically low 20.5-60.[address] [facility] Comment on above: Performed By: #### C BC ####[facility] Amukahpuvt30[address] [place] [address]Dr. Rosemarieashley Yañez MANUAL DIFF REQ NO Normal [facility] Comment on above: Performed By: #### C BC ####[facility] Nvpjnlqqxg9784 [place] [address]Dr. Nahed Otilio MCH (RBC) [Entitic mass] 28.2 pg Normal 26.7-34.[address] [facility] Comment on above: Performed By: #### C BC ####[facility] Gzdvpxloil475[address] [place], [place] [address]Dr. Nahed Otilio MCHC (RBC) [Mass/Vol] 31.5 g/dL Normal 29.9-35.[address] [facility] Comment on above: Performed By: #### C BC ####[facility] Mmtoybcdlp7176 [place] [address]Dr. Nahed Yañez MCV (RBC) [Entitic vol] 89.6 fL Normal 81.0-99.[address] [facility] Comment on above: Performed By: #### C BC ####[facility] Fjfolryypp33[address] [place], [place] [address]Dr. Nahed Yañez MONO # 0.3 103/ul Normal 0.3-0.[address] [facility] Comment on above: Performed By: #### C BC ####[facility] Drvvsejgzt5569[address] [place], [place] [address]Dr. Nahed Yañez Monocytes/100 WBC (Bld) 2.2 % Normal 1.7-12.[address] [facility] Comment on above: Performed By: #### C BC ####[facility] Cggldomutr[address] [place], [place] [address]Dr. Nahed Yañez NEUT # 11.1 103/ul Critically high 1.4-6.5 [facility] Comment on above: Performed By: #### C BC ####[facility] Xzxvedjueu0207 [place] [address]Dr. Nahed Yañez Neutrophils/100 WBC (Bld) 91.5 % Critically high 43.0-75.[address] [facility] Comment on above: Performed By: #### C BC ####[facility] Fugsmfyfyd3907 [place] [address]Dr. Nahed Yañez Platelet mean volume (Bld) [Entitic vol] 10.1 fL Normal 9.5-13.[address] [facility] Comment on above: Performed By: #### C BC ####[facility] Abawwqbcfv7779 [place] [address]Dr. Nahed Yañez PLT 323 103/ul Normal 150-[address] [facility] Comment on above: Performed By: #### C BC ####[facility] Eekchjhgiw5716 [place] [address]Dr. Nahed Yañez RBC 4.32 106/ul Normal 4.20-5.[address] [facility] Comment on above: Performed By: #### C BC ####[facility] Iszliftfvq5401 [place] [address]Dr. Nahed Yañez WBC 12.1 103/ul Critically high 4.0-11.0 [facility] Comment on above: Performed By: #### C BC ####[facility] Limtaowgul4286 [place] [address]Dr. Nahed Yañez POINT OF CARE GLUCOSEon 03- Glucose [Mass/Vol] 308 mg/dL Critically high 74-106 [facility] Comment on above: Performed By: #### P OCGLUC ####[facility] Cbzebpmwty299[address] [place], [place] [address]Dr. Nahed Yañez Glucose [Mass/Vol] 341 mg/dL Critically high 74-106 [facility] Comment on above: Performed By: #### P OCGLUC ####[facility] Oymszqiyto[address] [place], [place] [address]Dr. Nahed Yañez Glucose [Mass/Vol] 320 mg/dL Critically high 74-106 [facility] Comment on above: Performed By: #### P OCGLUC ####[facility] Ifywzifihr4534 [place] [address]Dr. Nahed Yañez PROF 14(COMP METB)on 023 Albumin [Mass/Vol] 3.0 g/dL Critically low 3.4-5.0 [facility] Comment on above: Performed By: #### C MP ####[facility] Ebsdaytgtr4235 [place] [address]Dr. Nahed Yañez Albumin/Globulin [Mass ratio] 0.7 {ratio} Normal [facility] Comment on above: Performed By: #### C MP ####[facility] Uxsacgarrq[address] [place], [place] [address]Dr. Nahed Yañez ALP [Catalytic activity/Vol] 93 U/L Normal 46-116 [facility] Comment on above: Performed By: #### C MP ####[facility] Ipdhhcsuwt294[address] [place], [place] [address]Dr. Nahed Otilio ALT [Catalytic activity/Vol] 15 U/L Normal 14-59 [facility] Comment on above: Performed By: #### C MP ####[facility] Apeuullmoq7088[address] [place], [place] [address]Dr. Nahed Otilio Anion gap [Moles/Vol] 13.0 mmol/L Normal [facility] Comment on above: Performed By: #### C MP ####[facility] Qbvycnjcrg570[address] [place], [place] [address]Dr. Nahed Otilio AST [Catalytic activity/Vol] 11 U/L Critically low 15-37 [facility] Comment on above: Performed By: #### C MP ####[facility] Cylyhmjzfr124[address] [place], [place] [address]Dr. Nahed Yañez Bilirubin [Mass/Vol] 0.2 mg/dL Normal 0.2-1.0 [facility] Comment on above: Performed By: #### C MP ####[facility] Ikchmjilye1034 [place] [address]Dr. Nahed Yañez Calcium [Mass/Vol] 9.6 mg/dL Normal 8.5-10.1 [facility] Comment on above: Performed By: #### C MP ####[facility] Akablundeg5816 [place] [address]Dr. Nahed Yañez Chloride [Moles/Vol] 100 mmol/L Normal 98-107 [facility] Comment on above: Performed By: #### C MP ####[facility] Vrckelkzql8342 [place] [address]Dr. Nahed Yañez CO2 [Moles/Vol] 27.3 mmol/L Normal 21.0-32.0 [facility] Comment on above: Performed By: #### C MP ####[facility] Jlrrifsxuy10[address] [place], [place] [address]Dr. Nahed Yañez Creatinine [Mass/Vol] 1.19 mg/dL Critically high 0.55-1.02 [facility] Comment on above: Performed By: #### C MP ####[facility] Lsjouarxxu7235[address] [place], [place] [address]Dr. Nahed Yañez EGFR-AF OMANI 56 mL/min/1.73m2 Critically low >=60 [facility] Comment on above: Performed By: #### C MP ####[facility] Csmzroeadd736[address] [place], [place] [address]Dr. Nahed Yañez EGFR-NON AF OMANI 46 mL/min/1.73m2 Critically low >=[address] [facility] Comment on above: Performed By: #### C MP ####[facility] Knjvqpsjjn65[address] [place], [place] [address]Dr. Nahed Otilio Globulin (S) [Mass/Vol] 4.1 g/dL Normal [facility] Comment on above: Performed By: #### C MP ####[facility] Tajtcrslew5635[address] [place], [place] [address]Dr. Nahed Otilio Glucose [Mass/Vol] 244 mg/dL Critically high 74-106 [facility] Comment on above: Performed By: #### C MP ####[facility] Wsagcxnazg[address] [place], [place] [address]Dr. Nahed Yañez Potassium [Moles/Vol] 4.3 mmol/L Normal 3.5-5.[address] [facility] Comment on above: Performed By: #### C MP ####[facility] Xqxyggtqki867[address] [place], [place] [address]Dr. Nahed Yañez Protein [Mass/Vol] 7.1 g/dL Normal 6.4-8.[address] [facility] Comment on above: Performed By: #### C MP ####[facility] Nncimnjqtc8810[address] [place], [place] [address]Dr. Nahed Otilio Sodium [Moles/Vol] 136 mmol/L Normal 136-[address] [facility] Comment on above: Performed By: #### C MP ####[facility] Inaevavfkr956189 [address] [place], [place] [address]Dr. Nahed Yañez Urea nitrogen [Mass/Vol] 19.0 mg/dL Critically high 7.0-18.[address] [facility] Comment on above: Performed By: #### C MP ####[facility] Bsdsqcvblv75[address] [place], [place] [address]Dr. Nahed Yañez Urea nitrogen/Creatinine [Mass ratio] 16.0 mg/mg Normal [facility] Comment on above: Performed By: #### C MP ####[facility] Fdrwltmlmw197[address] [place], [place] [address]Dr. Nahed Otilio BNPon 07-27-2022 Natriuretic peptide B (Bld) [Mass/Vol] 1093.0 pg/mL Critically high <=900.[address] [facility] Comment on above: Performed By: #### B COMMUNITY DEVELOPMENT WORKER ####[facility] Qhjdtrtfgc[address] [place], [place] [address]Dr. Rosemarieashley Otilio CBC AUTO DIFFon 07-27-2022 BASO # 0.1 103/ul Normal 0.0-0.[address] [facility] Comment on above: Performed By: #### C BC ####[facility] Mbecmxcebv022[address] [place], [place] [address]Dr. Nahed Yañez Basophils/100 WBC (Bld) 0.3 % Normal 0.2-2.[address] [facility] Comment on above: Performed By: #### C BC ####[facility] Auevctxfee5188 [place] [address]Dr. Nahed Yañez EO # 0.2 103/ul Normal 0.0-0.7 [facility] Comment on above: Performed By: #### C BC ####[facility] Tpudmblycu5246 [place] [address]Dr. Nahed Yañez Eosinophils/100 WBC (Bld) 1.2 % Normal 0.9-7.0 [facility] Comment on above: Performed By: #### C BC ####[facility] Wrluhmclwh706[address] [place], [place] [address]Dr. Nahed Yañez Erythrocyte distribution width (RBC) [Ratio] 14.1 % Normal 11.0-15.0 [facility] Comment on above: Performed By: #### C BC ####[facility] Nrmcixjvdr422[address] [place], [place] [address]Dr. Nahed Yañez Hematocrit (Bld) [Volume fraction] 42.2 % Normal 36.0-48.0 [facility] Comment on above: Performed By: #### C BC ####[facility] Htpwjejxbl760[address] [place], [place] [address]Dr. Nahed Yañez Hemoglobin (Bld) [Mass/Vol] 13.6 g/dL Normal 12.0-16.0 [facility] Comment on above: Performed By: #### C BC ####[facility] Odajadbttd7[address] [place], [place] [address]Dr. Nahed Yañez IG # 0.09 10e3/ul Critically high 0.00-0.03 [facility] Comment on above: Performed By: #### C BC ####[facility] Zznfvxzbqv48[address] [place], [place] [address]Dr. Nahed Yañez IG % 0.5 % Normal 0.0-0.5 [facility] Comment on above: Performed By: #### C BC ####[facility] Gskyvamfxy4[address] [place], [place] [address]Dr. Rosemarieashley Yañez LYMPH # 1.8 103/ul Normal 1.2-3.[address] [facility] Comment on above: Performed By: #### C BC ####[facility] Mxilbhzvjd8362 [place] [id number]. Nahed Otilio Lymphocytes/100 WBC (Bld) 10.2 % Critically low 20.5-60.0 [facility] Comment on above: Performed By: #### C BC ####[facility] Rsjwbrdrws8303 [place] [phone]. Nahed Yañez MANUAL DIFF REQ NO Normal [facility] Comment on above: Performed By: #### C BC ####[facility] Aokjcqcmkx0803 [place] [phone]. Nahed Yañez MCH (RBC) [Entitic mass] 28.3 pg Normal 26.7-34.[address] [facility] Comment on above: Performed By: #### C BC ####[facility] Mlcjjuvrsq9090 [place] [address]Dr. Nahed Yañez MCHC (RBC) [Mass/Vol] 32.2 g/dL Normal 29.9-35.[address] [facility] Comment on above: Performed By: #### C BC ####[facility] Mhbxtjogoe0661 [place] [phone]. Nahed Yañez MCV (RBC) [Entitic vol] 87.9 fL Normal 81.0-99.[address] [facility] Comment on above: Performed By: #### C BC ####[facility] Kacnpdiopm3285 [place] [phone]. Nahed Yañez MONO # 0.9 103/ul Critically high 0.3-0.8 [facility] Comment on above: Performed By: #### C BC ####[facility] Jrqkvoqrkc0783 [place] [phone]. Nahed Yañez Monocytes/100 WBC (Bld) 5.2 % Normal 1.7-12.[address] [facility] Comment on above: Performed By: #### C BC ####[facility] Rdxrmmzyne1202 [place] [phone]. Nahed Yañez NEUT # 14.4 103/ul Critically high 1.4-6.5 [facility] Comment on above: Performed By: #### C BC ####[facility] [address] [place], [place] [address]Ut. Nahed Yañez Neutrophils/100 WBC (Bld) 82.6 % Critically high 43.0-75.0 [facility] Comment on above: Performed By: #### C BC ####[facility] Yctfvpoual1925 [place], [place] [address]Zz. Nahed Yañez Platelet mean volume (Bld) [Entitic vol] 10.1 fL Normal 9.5-13.5 [facility] Comment on above: Performed By: #### C BC ####[facility] Rdbfoycfru9910 [place] [phone]. Nahed Yañez PLT 336 103/ul Normal 150-[address] [facility] Comment on above: Performed By: #### C BC ####[facility] Atfrjilwhd7471 [place] [phone]. Nahed Yañez RBC 4.80 106/ul Normal 4.20-5.[address] [facility] Comment on above: Performed By: #### C BC ####[facility] Dezebicbof4528 [place], [place] [address]Mh. Nahed Yañez WBC 17.4 103/ul Critically high 4.0-11.0 [facility] Comment on above: Performed By: #### C BC ####[facility] Uziyaqvdrh4347 [place] [phone]. Nahed Yañez CTA CHEST WO W CONon 023 CTA CHEST WO W CON Normal [facility]on [facility]-12 SARS-CoV-2 (COVID-19) RNA MIRNA+probe Ql (Unsp spec) Not detected Normal NOT DETECTED [facility] Comment on above: Result Comment: When [...] for this test is supported by the [place] [employer] and [employer]'s declaration that [...] be used). Performed By: #### C VDTB ####[facility] Gwxzwzefck228[address] [place], [place] [address]Dr. Nahed Yañez ECHOCARDIO M/2D COMPLETEon 0 07-27-2022 ECHOCARDIO M/2D COMPLETE Normal [facility] ER URINE PROFILEon 3 Bilirubin Ql (U) Negative Normal NEGATIVE [facility] Comment on above: Performed By: #### U MICRO, ERUR ####[facility] Qhzczatgsq9[address] [place], [place] [address]Dr. Nahed Yañez Clarity (U) CLEAR Normal CLEAR [facility] Comment on above: Performed By: #### U MICRO, ERUR ####[facility] Awhvgnsjzn[address] [place], [place] [address]Dr. Nahed Yañez Color (U) LT. YELLOW Normal YELLOW [facility] Comment on above: Performed By: #### U MICRO, ERUR ####[facility] Ozqyulstec70[address] [place], [place] [address]Dr. Nahed AGEED A micrscopic examination will be performed if indicated. Normal [facility] Comment on above: Performed By: #### U MICRO, ERUR ####[facility] Fpkqtvtomu060[address] [place], [place] [address]Dr. Nahed Yañez Glucose Ql (U) >1000 Abnormal NEGATIVE [facility] Comment on above: Performed By: #### U MICRO, ERUR ####[facility] Abjxaxltev549[address] [place], [place] [address]Dr. Nahed Yañez Hemoglobin Ql (U) TRACE-LYSED Abnormal NEGATIVE [facility] Comment on above: Performed By: #### U MICRO, ERUR ####[facility] Lbwwdhtcds6093 [place] [address]Dr. Nahed Yañez Ketones Ql (U) TRACE Abnormal NEGATIVE [facility] Comment on above: Performed By: #### U MICRO, ERUR ####[facility] Isuihelczd5766 [place] [address]Dr. Nahed Yañez LEUKOCYTES Negative Normal NEGATIVE [facility] Comment on above: Performed By: #### U MICRO, ERUR ####[facility] Mmduwkpfje5191 [place] [address]Dr. Nahed Yañez Nitrite Ql (U) Negative Normal NEGATIVE [facility] Comment on above: Performed By: #### U MICRO, ERUR ####[facility] Vtoupgvqfi256[address] [place], [place] [address]Dr. Nahed Yañez pH (U) 7.0 [pH] Normal 5-[address] [facility] Comment on above: Performed By: #### U MICRO, ERUR ####[facility] Hiethzzjdr994[address] [place], [place] [address]Dr. Nahed Yañez SPEC GRAVITY 1.020 Normal 1.005-<=1.[address] [facility] Comment on above: Performed By: #### U MICRO, ERUR ####[facility] Evcsfpdfax[address] [place], [place] [address]Dr. Nahed Yañez UA PROTEIN Negative Normal NEGATIVE/ TRACE [facility] Comment on above: Performed By: #### U MICRO, ERUR ####[facility] L[address]cxbdvlr[address] [place], [place] [address]Dr. Nahed Yañez UR MICRO IND INDICATED Normal [facility] Comment on above: Performed By: #### U MICRO, ERUR ####[facility] Sxadcprgon12[address] [place], [place] [address]Dr. Nahed Yañez Urobilinogen Qn (U) 0.2 {Alem'U}/dL Normal 0.2 - 1. 0 [facility] Comment on above: Performed By: #### U MICRO, ERUR ####[facility] Pyqykaannz[address] [place], [place] [address]Dr. Nahed Yañez LIPID PROFILEon 07-27-2022 CHOL-HDL RATIO NORM SEE BELOW Normal [facility] Comment on above: Result Comment: 3.3 - 4.4 LOW RISK 4.4 - 7.1 AVERAGE RISK 7.1 - 11.0 MODERATE RISK >11.0 HIGH RISK Performed By: #### M G, LIPID ####[facility] Ynoosvqntt2973 [place], [place] [address]Bk. Nahed Yañez Cholesterol [Mass/Vol] 181 mg/dL Normal <=200 [facility] Comment on above: Performed By: #### M G, LIPID ####[facility] Xtaqwrrzom0937 [place], [place] [address]Fo. Nahed Otilio Cholesterol in HDL [Mass/Vol] 87 mg/dL Critically high 40-60 [facility] Comment on above: Performed By: #### Pablo Moore, LIPID ####[facility] Lsgkwgeydw6366 [place] [phone]. Rosemarieashley Otilio Cholesterol in LDL [Mass/Vol] 78.6 mg/dL Normal [facility] Comment on above: Performed By: #### M Teresa, LIPID ####[facility] Dvccmmlntt2464 [place], [place] [address]Kn. Nahed Otilio Cholesterol.total/Chol esterol in HDL [Mass ratio] 2.1 {ratio} Normal [facility] Comment on above: Performed By: #### Pablo Moore, LIPID ####[facility] Zxaobtjhqt2343 [place] [phone]. Rosemarieashley Otilio HDL NORMAL > or = 60 mg/dl - LO W CARDIOVASCULAR RISK <40 mg/dl - HIGH CARDIOVASCULAR RISK Normal [facility] Comment on above: Performed By: #### M G, LIPID ####[facility] Tfdbysvxam2777 [place] [phone]. Nahed Otilio LDL CALC NORMAL SEE BELOW Normal [facility] [place] [facility] Comment on above: Result Comment: <100 mg/dl OPTIMAL 100 - 129 mg/dl NEAR OR ABOVE OPTIMAL 130 - 159 mg/dl BORDERLINE HIGH 160 - 189 mg/dl HIGH >190 mg/dl VERY HIGH Performed By: #### M G, LIPID ####[facility] Siffwokntp6415 [place] [phone]. Nahed Yañez Triglyceride [Mass/Vol] 77 mg/dL Normal <=150 [facility] Comment on above: Performed By: #### M G, LIPID ####[facility] Iqtdwafguc4912 [place] [phone]. Nahed Yañez VLDL CALC 15.4 mg/dL Normal [facility] Comment on above: Performed By: #### M G, LIPID ####[facility] Nywapdwoxb6233 [place] [phone]. Nahed Yañez MAGNESIUMon 07-27-2022 Magnesium [Mass/Vol] 1.7 mg/dL Critically low 1.8-2.4 [facility] Comment on above: Performed By: #### M Teresa, LIPID ####[facility] Infrkxudlm2465 [place] [address]Dr. Nahed Yañez POINT OF CARE GLUCOSEon 07-12 Glucose [Mass/Vol] 276 mg/dL Critically high -106 [facility] Comment on above: Performed By: #### P OCGLUC ####[facility] Furljxuzmu[address] [place] [address]Dr. Nahed Yañez Glucose [Mass/Vol] 143 mg/dL Critically high -106 [facility] Comment on above: Performed By: #### P OCGLUC ####[facility] Lwxyqtttgv4737 [place] [address]Dr. Nahed Yañez Glucose [Mass/Vol] 117 mg/dL Critically high -106 [facility] Comment on above: Performed By: #### P OCGLUC ####[facility] Ciudkuuhzs77[address] [place] [address]Dr. Rosemarieashley Yañez PROF CHEM 8 (BAS METB)on Anion gap [Moles/Vol] 11.1 mmol/L Normal [facility] Comment on above: Performed By: #### B MP, HSTROPN ####[facility] Jxqkhwpcqk0134 [place] [address]Dr. Nahed Yañez Calcium [Mass/Vol] 9.6 mg/dL Normal 8.5-10.1 [facility] Comment on above: Performed By: #### B RENZO, HSTROPN ####[facility] Rncvyxxzui6463 [place] [address]Dr. Nahed Yañez Chloride [Moles/Vol] 99 mmol/L Normal 98-107 [facility] Comment on above: Performed By: #### B RENZO, HSTROPN ####[facility] Cvbolzrkmd3263 [place] [address]Dr. Nahed Yañez CO2 [Moles/Vol] 27.8 mmol/L Normal 21.0-32.0 [facility] Comment on above: Performed By: #### B RENZO, HSTROPN ####[facility] Nqjagbsf[address] [place], [place] [address]Dr. Nahed Yañez Creatinine [Mass/Vol] 0.90 mg/dL Normal 0.55-1.02 [facility] Comment on above: Performed By: #### Mery MULLER, HSTROPN ####[facility] [address]mb[address]te[address] [place], [place] [address]Dr. Nahed Yañez EGFR-AF OMANI >60 Normal >=60 [facility] Comment on above: Performed By: #### Mery MULLER, HSTROPN ####[facility] Qkpcnvwqsm[address] [place], [place] [address]Dr. Nahed Yañez EGFR-NON AF OMANI >60 Normal >=60 [facility] Comment on above: Performed By: #### Mery MULLER, HSTROPN ####[facility] Gduozmollr2217 [place] [address]Dr. Nahed Yañez Glucose [Mass/Vol] 133 mg/dL Critically high 74-106 [facility] Comment on above: Performed By: #### B RENZO, HSTROPN ####[facility] Nrjtmfkjos[address] [place], [place] [address]Dr. Nahed Yañez Potassium [Moles/Vol] 3.9 mmol/L Normal 3.5-5.[address] [facility] Comment on above: Performed By: #### Mery MULLER, HSTROPN ####[facility] [address]nv[address] [place], [place] [address]Dr. Nahed Yañez Sodium [Moles/Vol] 134 mmol/L Critically low 136-[address] [facility] Comment on above: Performed By: #### B MP, HSTROPN ####[facility] Pqijnzygil3847 [place] [address]Dr. Nahed Yañez Urea nitrogen [Mass/Vol] 9.0 mg/dL Normal 7.0-18.0 [facility] Comment on above: Performed By: #### B MP, HSTROPN ####[facility] Gviazfxnhu3185 [place] [address]Dr. Rosemarieashley Yañez Urea nitrogen/Creatinine [Mass ratio] 10.0 mg/mg Normal [facility] Comment on above: Performed By: #### B MP, HSTROPN ####[facility] Qsdqxcxvak3470 [place] [address]Dr. Nahed Otilio TROPONIN, HIGH SENSITIVITYon 07-27-2022 HSTROP 40.7 pg/mL Normal 4.0-51.3 [facility] Comment on above: Result Comment: CUT- OFF POINTS HAVE BEEN ESTABLISHED BASED ON THE FOURTH UNIVERSAL DEFINITIONS OF MYOCARDIALINFARCTION. THE UPPER REFERENCE LIMIT (URL) OF TROPONIN, DEFINED THE 99TH PERCENTILE OFcTnI DISTRIBUTION IN A REFERENCE POPULATION, HAS BEEN CONFIRMED THE DECISION THRESHOLDFOR [place] DIAGNOSIS. Performed By: #### H STROPN ####[facility] Evzyemscxs8629 [place] [address]Dr. Nahed Yañez HSTROP 42.5 pg/mL Normal 4.0-51.3 [facility] Comment on above: Result Comment: CUT- OFF POINTS HAVE BEEN ESTABLISHED BASED ON THE FOURTH UNIVERSAL DEFINITIONS OF MYOCARDIALINFARCTION. THE UPPER REFERENCE LIMIT (URL) OF TROPONIN, DEFINED THE 99TH PERCENTILE OFcTnI DISTRIBUTION IN A REFERENCE POPULATION, HAS BEEN CONFIRMED THE DECISION THRESHOLDFOR [place] DIAGNOSIS. Performed By: #### H STROPN ####[facility] Bydvvsvkmd0982 [place] [address]Dr. Nahed Yañez HSTROP 50.8 pg/mL Normal 4.0-51.[address] [facility] Comment on above: Result Comment: CUT- OFF POINTS HAVE BEEN ESTABLISHED BASED ON THE FOURTH UNIVERSAL DEFINITIONS OF MYOCARDIALINFARCTION. THE UPPER REFERENCE LIMIT (URL) OF TROPONIN, DEFINED THE 99TH PERCENTILE OFcTnI DISTRIBUTION IN A REFERENCE POPULATION, HAS BEEN CONFIRMED THE DECISION THRESHOLDFOR [place] DIAGNOSIS. Performed By: #### H STROPN ####[facility] [address]amqwamfh57[address] [place] [id number]. Nahed Yañez HSTROP 46.3 pg/mL Normal 4.0-51.3 [facility] Comment on above: Result Comment: CUT- OFF POINTS HAVE BEEN ESTABLISHED BASED ON THE FOURTH UNIVERSAL DEFINITIONS OF MYOCARDIALINFARCTION. THE UPPER REFERENCE LIMIT (URL) OF TROPONIN, DEFINED THE 99TH PERCENTILE OFcTnI DISTRIBUTION IN A REFERENCE POPULATION, HAS BEEN CONFIRMED THE DECISION THRESHOLDFOR [place] DIAGNOSIS. Performed By: #### H STROBINH, TSH ####[facility] Pownrbnbbb1835 [place] [address]Dr. Nahed Yañez HSTROP 54.2 pg/mL Critically high 4.0-51.3 [facility] Comment on above: Result Comment: CUT- OFF POINTS HAVE BEEN ESTABLISHED BASED ON THE [facility] UNIVERSAL DEFINITIONS OF MYOCARDIALINFARCTION. THE UPPER REFERENCE LIMIT (URL) OF TROPONIN, DEFINED THE 99TH PERCENTILE OFcTnI DISTRIBUTION IN A REFERENCE POPULATION, HAS BEEN CONFIRMED THE DECISION THRESHOLDFOR [place] DIAGNOSIS. Performed By: #### B MP, HSTROPN ####[facility] Oyrnuxpcei9951 [place] [phone]. Nahed Yañez TSHon 07-27-2022 TSH 1.566 uIU/mL Normal 0.358-3.740 [facility] Comment on above: Performed By: #### H STROPN, TSH ####[facility] Xtgxgvlrvh1025 [place] [phone]. Nahed Yañez URINE MICROSCOPIC ONLYon BACTERIA NONE SEEN Normal NONE SEEN [facility] Comment on above: Performed By: #### U MICRO, ERUR ####[facility] Pqwthumiwu3301 [place] [phone]. Nahed Yañez Bacteria identified Cx Nom (U) NOT INDICATED Normal [facility] Comment on above: Performed By: #### U MICRO, ERUR ####[facility] Cpogzbhbnz5005 [place] [address]Dr. Nahed Yañez CAST NONE SEEN Normal NONE SEEN [facility] Comment on above: Performed By: #### U MICRO, ERUR ####[facility] Tuftxdeemc0757 [place] [address]Dr. Nahed Yañez Crystals LM Nom (Urine sed) NONE SEEN Normal NONE SEEN [facility] Comment on above: Performed By: #### U MICRO, ERUR ####[facility] Cqpovpysgk4995 [place] [address]Dr. Nahed Yañez Epithelial cells LM Ql (Urine sed) FEW Abnormal NONE SEEN /RARE [facility] Comment on above: Performed By: #### U MICRO, ERUR ####[facility] Hcaiqpqlwr3145 [place] [address]Dr. Nahed Yañez MUCOUS NONE SEEN Normal NONE SEEN [facility] Comment on above: Performed By: #### U MICRO, ERUR ####[facility] Tucaqldfnm[address] [place], [place] [address]Dr. Nahed Yañez RBC 0-2 Normal 0-[address] [facility] Comment on above: Performed By: #### U MICRO, ERUR ####[facility] Ebpspzswbc362[address] [place], [place] [address]Dr. Nahed Yañez WBC NONE SEEN Normal NONE SEEN [facility] Comment on above: Performed By: #### U MICRO, ERUR ####[facility] Nmuvktxaat9[address] [place], [place] [address]Dr. Nahed Yañez XR CHEST 1 Von 07-27-2022 XR CHEST 1 V Normal [facility] INSULINon 05-09-2022 Insulin 21.1 uIU/mL Normal 2.6-24.[address] [facility] Comment on above: Performed By: #### I NSULIN ####[facility] Gkhxupidte228[address] [place], [place] [address]Dr. Nahed Yañez BNPon 05-08-2022 Natriuretic peptide B (Bld) [Mass/Vol] 58.0 pg/mL Normal <=900.[address] [facility] Comment on above: Performed By: #### B COMMUNITY DEVELOPMENT WORKER, LIPID, T7, TSH, CMP ####[facility] Gollukrhlj8170 [place] [phone]. Nahed Yañez CBC AUTO DIFFon 05-08-2022 BASO # 0.0 103/ul Normal 0.0-0.1 [facility] Comment on above: Performed By: #### C BC ####[facility] Lvogpsqxws4023 [place] [phone]. Nahed Yañez Basophils/100 WBC (Bld) 0.4 % Normal 0.2-2.[address] [facility] Comment on above: Performed By: #### C BC ####[facility] Bcvfthktdv230[address] [place], [place] [address]Dr. Nahed Yañez EO # 0.3 103/ul Normal 0.0-0.[address] [facility] Comment on above: Performed By: #### C BC ####[facility] Laiusebxob[address] [place], [place] [address]Dr. Nahed Yañez Eosinophils/100 WBC (Bld) 4.2 % Normal 0.9-7.[address] [facility] Comment on above: Performed By: #### C BC ####[facility] Naryypkvye444[address] [place], [place] [address]Dr. Nahed Yañez Erythrocyte distribution width (RBC) [Ratio] 14.0 % Normal 11.0-15.[address] [facility] Comment on above: Performed By: #### C BC ####[facility] Ljeskkvzhv[address] [place], [place] [address]Dr. Nahed Yañez Hematocrit (Bld) [Volume fraction] 43.8 % Normal 36.0-48.[address] [facility] Comment on above: Performed By: #### C BC ####[facility] [address]vjvllgpds24[address] [place], [place] [address]Dr. Nahed Yañez Hemoglobin (Bld) [Mass/Vol] 13.9 g/dL Normal 12.0-16.[address] [facility] Comment on above: Performed By: #### C BC ####[facility] Hlgqpzanua11[address] [place], [place] [address]Dr. Nahed Yañez IG # 0.01 10e3/ul Normal 0.00-0.03 [facility] Comment on above: Performed By: #### C BC ####[facility] Cdcjhgylsi7873 [place] [address]DrShaun Rosemarieashley Yañez IG % 0.1 % Normal 0.0-0.5 [facility] Comment on above: Performed By: #### C BC ####[facility] Bztzpmguzl6792 [place] [phone] Rosemarieashley Yañez LYMPH # 2.8 103/ul Normal 1.2-3.8 [facility] Comment on above: Performed By: #### C BC ####[facility] Cnpzvstdec9838 [place] [address]DrShaun Rosemarieashley Yañez Lymphocytes/100 WBC (Bld) 37.6 % Normal 20.5-60.0 [facility] Comment on above: Performed By: #### C BC ####[facility] Dwstasagwd74[address] [place], [place] [address]DrShaun Yañez MANUAL DIFF REQ NO Normal [facility] Comment on above: Performed By: #### C BC ####[facility] Myiqzjprtw6523 [place] [phone]. Nahed Otilio MCH (RBC) [Entitic mass] 28.4 pg Normal 26.7-34.0 [facility] Comment on above: Performed By: #### C BC ####[facility] [address] [place], [place] [id number] Nahed Otilio MCHC (RBC) [Mass/Vol] 31.7 g/dL Normal 29.9-35.2 [facility] Comment on above: Performed By: #### C BC ####[facility] Xmwfbbwewi[address] [place], [place] [id number] Rosemarieashley Yañez MCV (RBC) [Entitic vol] 89.6 fL Normal 81.0-99.0 [facility] Comment on above: Performed By: #### C BC ####[facility] Mledciktxh2932 [place] [phone] Yañez MONO # 0.5 103/ul Normal 0.3-0.[address] [facility] Comment on above: Performed By: #### C BC ####[facility] Gnojuzzrdz1638 [place] [phone]. Nahed Yañez Monocytes/100 WBC (Bld) 6.8 % Normal 1.7-12.[address] [facility] Comment on above: Performed By: #### C BC ####[facility] Nndceqrazk0766 [place] [phone]. Nahed Yañez NEUT # 3.7 103/ul Normal 1.4-6.5 [facility] Comment on above: Performed By: #### C BC ####[facility] Khxreztach1443 [place] [phone]. Nahed Yañez Neutrophils/100 WBC (Bld) 50.9 % Normal 43.0-75.[address] [facility] Comment on above: Performed By: #### C BC ####[facility] Gqvkwoscfd2537 [place] [address]Dr. Nahed Yañez Platelet mean volume (Bld) [Entitic vol] 9.8 fL Normal 9.5-13.5 [facility] Comment on above: Performed By: #### C BC ####[facility] Ejosidrufz3042 [place] [phone]. Nahed Yañez PLT 306 103/ul Normal 150-[address] [facility] Comment on above: Performed By: #### C BC ####[facility] Vbzdytihxh9371 [place] [phone]. Naehd Yañez RBC 4.89 106/ul Normal 4.20-5.[address] [facility] Comment on above: Performed By: #### C BC ####[facility] Ptnibjurwi3330 [place] [phone]. Nahed Yañez WBC 7.3 103/ul Normal 4.0-11.[address] [facility] Comment on above: Performed By: #### C BC ####[facility] Lawjdgewpy7833 [place] [phone]. Nahed Yañez FREE THYROXINE INDEX T7on FTI 2.92 Normal 1.30-4.[address] [facility] Comment on above: Performed By: #### B COMMUNITY DEVELOPMENT WORKER, LIPID, T7, TSH, CMP ####[facility] Peypcqjwqh0642 [place] [phone]. Nahed Yañez T3U 34.0 % Normal 30.0-39.0 [facility] Comment on above: Performed By: #### B COMMUNITY DEVELOPMENT WORKER, LIPID, T7, TSH, CMP ####[facility] Elaebwleuz9058 [place] [phone]. Nahed Yañez T4 [Mass/Vol] 8.60 ug/dL Normal 4.80-13.90 [facility] Comment on above: Performed By: #### B COMMUNITY DEVELOPMENT WORKER, LIPID, T7, TSH, CMP ####[facility] Nhydmbtrki8012 [place] [address]Dr. Nahed Yañez GLYCOHEMOGLOBIN A1Con 2021 ADA RECOMMENDATION SEE BELOW Normal [facility] Comment on above: Result Comment: ADA RECOMMENDED LIMIT 4.0 - 6.0 ADA THERAPEUTIC TARGET < 7.0 ACTION SUGGESTED > 7.0 Performed By: #### A 1C ####[facility] Xokrfpymny7470 [place] [address]Dr. Nahed Yañez Glucose [Mass/Vol] 146 mg/dL Normal [facility] Comment on above: Performed By: #### A 1C ####[facility] Yhkglctafx5792 [place] [address]Dr. Nahed Yañez HbA1c (Bld) [Mass fraction] 6.7 % Critically high 4.5-6.2 [facility] Comment on above: Performed By: #### A 1C ####[facility] Gzwhpuyqah0772 [place] [phone]. Nahed Yañez IRONon 05-08-2022 Iron [Mass/Vol] 76.0 ug/dL Normal 50.0-170.0 [facility] Comment on above: Performed By: #### V ITAD, IRON ####[facility] Pcngshlcdt8832 [place] [phone]. Nahed Yañez LIPID PROFILEon 05-08-2022 CHOL-HDL RATIO NORM SEE BELOW Normal [facility] Comment on above: Result Comment: 3.3 - 4.4 LOW RISK 4.4 - 7.1 AVERAGE RISK 7.1 - 11.0 MODERATE RISK >11.0 HIGH RISK Performed By: #### B COMMUNITY DEVELOPMENT WORKER, LIPID, T7, TSH, CMP ####[facility] Dxdkwsccsb9019 [place] [address]Dr. Nahed Yañez Cholesterol [Mass/Vol] 167 mg/dL Normal <=200 [facility] Comment on above: Performed By: #### B COMMUNITY DEVELOPMENT WORKER, LIPID, T7, TSH, CMP ####[facility] Zcypwevkcg84[address] [place], [place] [address]Dr. Nahed Yañez Cholesterol in HDL [Mass/Vol] 63 mg/dL Critically high 40-60 [facility] Comment on above: Performed By: #### B COMMUNITY DEVELOPMENT WORKER, LIPID, T7, TSH, CMP ####[facility] Welorhblat5[address] [place], [place] [address]Dr. Nahed Yañez Cholesterol in LDL [Mass/Vol] 72.6 mg/dL Normal [facility] Comment on above: Performed By: #### B COMMUNITY DEVELOPMENT WORKER, LIPID, T7, TSH, CMP ####[facility] Vhqvreaajq[address] [place], [place] [address]Dr. Nahed Yañez Cholesterol.total/Chol esterol in HDL [Mass ratio] 2.7 {ratio} Normal [facility] Comment on above: Performed By: #### B COMMUNITY DEVELOPMENT WORKER, LIPID, T7, TSH, CMP ####[facility] Ztucdjfdfz93[address] [place], [place] [address]Dr. Rosemarieashley Yañez HDL NORMAL > or = 60 mg/dl - LO W CARDIOVASCULAR RISK <40 mg/dl - HIGH CARDIOVASCULAR RISK Normal [facility] Comment on above: Performed By: #### B COMMUNITY DEVELOPMENT WORKER, LIPID, T7, TSH, CMP ####[facility] Khehejwrbh[address] [place], [place] [address]Dr. Rosemarieashley Yañez LDL CALC NORMAL SEE BELOW Normal [facility] Comment on above: Result Comment: <100 mg/dl OPTIMAL 100 - 129 mg/dl NEAR OR ABOVE OPTIMAL 130 - 159 mg/dl BORDERLINE HIGH 160 - 189 mg/dl HIGH >190 mg/dl VERY HIGH Performed By: #### B COMMUNITY DEVELOPMENT WORKER, LIPID, T7, TSH, CMP ####[facility] Vobzjczyji5560 [place] [phone]. Nahed Yañez Triglyceride [Mass/Vol] 157 mg/dL Critically high <=150 [facility] Comment on above: Performed By: #### B COMMUNITY DEVELOPMENT WORKER, LIPID, T7, TSH, CMP ####[facility] Gttlzqcyyy7074 [place] [address]Dr. Nahed Yañez VLDL CALC 31.4 mg/dL Normal [facility] Comment on above: Performed By: #### B COMMUNITY DEVELOPMENT WORKER, LIPID, T7, TSH, CMP ####[facility] Zveyvwdasj7368 [place] [address]Dr. Nahed Yañez OCC BLD IMMUNO SCREENon 04-14 OCCULT BLOOD Negative Normal NEGATIVE [facility] Comment on above: Performed By: #### O BSCRN ####[facility] Tjifiaweyb7090 [place] [address]Dr. Nahed Yañez PROF 14(COMP METB)on 022 Albumin [Mass/Vol] 3.7 g/dL Normal 3.4-5.0 [facility] Comment on above: Performed By: #### B COMMUNITY DEVELOPMENT WORKER, LIPID, T7, TSH, CMP ####[facility] Rensdzusmg6917 [place] [address]Dr. Nahed Yañez Albumin/Globulin [Mass ratio] 0.9 {ratio} Normal [facility] Comment on above: Performed By: #### B COMMUNITY DEVELOPMENT WORKER, LIPID, T7, TSH, CMP ####[facility] Bkjsoztckg2620 [place] [address]Dr. Nahed Yañez ALP [Catalytic activity/Vol] 99 U/L Normal 46-[address] [facility] Comment on above: Performed By: #### B COMMUNITY DEVELOPMENT WORKER, LIPID, T7, TSH, CMP ####[facility] Mxlsrsrfra9687 [place] [address]Dr. Nahed Yañez ALT [Catalytic activity/Vol] 20 U/L Normal 14-59 [facility] Comment on above: Performed By: #### B COMMUNITY DEVELOPMENT WORKER, LIPID, T7, TSH, CMP ####[facility] Rxuffjmsts1900 [place] [address]Dr. Nahed Yañez Anion gap [Moles/Vol] 10.6 mmol/L Normal Th e [facility] Comment on above: Performed By: #### B COMMUNITY DEVELOPMENT WORKER, LIPID, T7, TSH, CMP ####[facility] Bpsglbxzwy0352 [place] [address]Dr. Nahed Yañez AST [Catalytic activity/Vol] 29 U/L Normal 15-37 [facility] Comment on above: Performed By: #### B COMMUNITY DEVELOPMENT WORKER, LIPID, T7, TSH, CMP ####[facility] Iaftbzlynt8214 [place] [address]Dr. Nahed Yañez Bilirubin [Mass/Vol] 0.4 mg/dL Normal 0.2-1.0 [facility] Comment on above: Performed By: #### B COMMUNITY DEVELOPMENT WORKER, LIPID, T7, TSH, CMP ####[facility] Encxkmbdrs[address] [place], [place] [address]Dr. Nahed Yañez Calcium [Mass/Vol] 9.3 mg/dL Normal 8.5-10.1 [facility] Comment on above: Performed By: #### B COMMUNITY DEVELOPMENT WORKER, LIPID, T7, TSH, CMP ####[facility] Ydoygizbaf[address] [place], [place] [address]Dr. Nahed Yañez Chloride [Moles/Vol] 100 mmol/L Normal 98-107 [facility] Comment on above: Performed By: #### B COMMUNITY DEVELOPMENT WORKER, LIPID, T7, TSH, CMP ####[facility] Ivfwvkxqzc7645[address] [place], [place] [address]Dr. Nahed Yañez CO2 [Moles/Vol] 31.4 mmol/L Normal 21.0-32.0 [facility] Comment on above: Performed By: #### B COMMUNITY DEVELOPMENT WORKER, LIPID, T7, TSH, CMP ####[facility] Zivuozuqph[address] [place], [place] [address]Dr. Nahed Yañez Creatinine [Mass/Vol] 1.01 mg/dL Normal 0.55-1.02 [facility] Comment on above: Performed By: #### B COMMUNITY DEVELOPMENT WORKER, LIPID, T7, TSH, CMP ####[facility] Nrbrqdnzdm6635 [place] [address]Dr. Nahed Yañez EGFR-AF OMANI >60 Normal >=60 [facility] Comment on above: Performed By: #### B COMMUNITY DEVELOPMENT WORKER, LIPID, T7, TSH, CMP ####[facility] Yqvnpnlaxy4318 [place] [address]Dr. Nahed Yañez EGFR-NON AF OMANI 56 mL/min/1.73m2 Critically low >=[address] [facility] Comment on above: Performed By: #### B COMMUNITY DEVELOPMENT WORKER, LIPID, T7, TSH, CMP ####[facility] Zgyquqmapz9[address] [place], [place] [address]Dr. Nahed Yañez Globulin (S) [Mass/Vol] 3.9 g/dL Normal [facility] Comment on above: Performed By: #### B COMMUNITY DEVELOPMENT WORKER, LIPID, T7, TSH, CMP ####[facility] Lqarbdmmga[address] [place], [place] [address]Dr. Nahed Yañez Glucose [Mass/Vol] 111 mg/dL Critically high 74-106 [facility] Comment on above: Performed By: #### B COMMUNITY DEVELOPMENT WORKER, LIPID, T7, TSH, CMP ####[facility] Mdpbysjdzd8[address] [place], [place] [address]Dr. Nahed Yañez Potassium [Moles/Vol] 4.0 mmol/L Normal 3.5-5.[address] [facility] Comment on above: Performed By: #### B COMMUNITY DEVELOPMENT WORKER, LIPID, T7, TSH, CMP ####[facility] Aecppchhzr[address] [place], [place] [address]Dr. Nahed Yañez Protein [Mass/Vol] 7.6 g/dL Normal 6.4-8.[address] [facility] Comment on above: Performed By: #### B COMMUNITY DEVELOPMENT WORKER, LIPID, T7, TSH, CMP ####[facility] Bsylofhzeq[address] [place], [place] [address]Dr. Nahed Yañez Sodium [Moles/Vol] 138 mmol/L Normal 136-[address] [facility] Comment on above: Performed By: #### B COMMUNITY DEVELOPMENT WORKER, LIPID, T7, TSH, CMP ####[facility] [address]mckojjyng[address] [place], [place] [address]Dr. Nahed Yañez Urea nitrogen [Mass/Vol] 17.0 mg/dL Normal 7.0-18.0 [facility] Comment on above: Performed By: #### B COMMUNITY DEVELOPMENT WORKER, LIPID, T7, TSH, CMP ####[facility] Gjcozyfqle0779 [place] [address]Dr. Nahed Yañez Urea nitrogen/Creatinine [Mass ratio] 16.8 mg/mg Normal [facility] Comment on above: Performed By: #### B COMMUNITY DEVELOPMENT WORKER, LIPID, T7, TSH, CMP ####[facility] Xcqfuqodib7907 [place] [id number]. Nahed Yañez TSHon 05-08-2022 TSH 2.835 uIU/mL Normal 0.358-3.740 [facility] Comment on above: Performed By: #### B COMMUNITY DEVELOPMENT WORKER, LIPID, T7, TSH, CMP ####[facility] Vbaiwfxosr0534 [place] [address]Dr. Nahed Yañez VITAMIN D 25 OHon 05-08-2022 VIT D 25-OH 13.4 ng/mL Normal [facility] Comment on above: Performed By: #### V ITLUISA, IRON ####[facility] [address]jbzep[address] [place], [place] [address]Dr. Nahed Yañez VIT D RANGES SEE BELOW Normal [facility] Comment on above: Result Comment: <20 ng/mL Vit D deficient 20 - <30 ng/mL Vit D insufficient 30 - 100 ng/mL Vit D sufficient >100 ng/mL Potential Toxicity Performed By: #### V ITLUISA, IRON ####[facility] Rvdhmbcezs0836 [place] [address]Dr. Nahed Yañez CARDIAC FRANCISCO 3-6on 2 CK [Catalytic activity/Vol] 37 U/L Normal 26-[address] [facility] Comment on above: Performed By: #### C MREP ####[facility] Msrttrsbok8373 [place] [address]Dr. Nahed Yañez CK.MB [Mass/Vol] 0.79 ng/mL Normal <=3.60 [facility] Comment on above: Performed By: #### C MREP ####[facility] Sdxcjlagjv5147 [place] [address]Dr. Nahed Yañez HSTROP 55.3 pg/mL Critically high 4.0-51.3 [facility] Comment on above: Result Comment: CUT- OFF POINTS HAVE BEEN ESTABLISHED BASED ON THE FOURTH UNIVERSAL DEFINITIONS OF MYOCARDIALINFARCTION. THE UPPER REFERENCE LIMIT (URL) OF TROPONIN, DEFINED THE 99TH PERCENTILE OFcTnI DISTRIBUTION IN A REFERENCE POPULATION, HAS BEEN CONFIRMED THE DECISION THRESHOLDFOR [place] DIAGNOSIS. Performed By: #### C MREP ####[facility] [id number] [place] [id number]. Nahed Yañez CK [Catalytic activity/Vol] 49 U/L Normal 26-[address] [facility] Comment on above: Performed By: #### C MREP ####[facility] [id number] [place] [id number]. Nahed Yañez CK.MB [Mass/Vol] 0.71 ng/mL Normal <=3.60 [facility] Comment on above: Performed By: #### C MREP ####[facility] [id number] [place] [id number]. Nahed Yañez HSTROP 62.6 pg/mL Critically high 4.0-51.3 [facility] Comment on above: Result Comment: CUT- OFF POINTS HAVE BEEN ESTABLISHED BASED ON THE FOURTH UNIVERSAL DEFINITIONS OF MYOCARDIALINFARCTION. THE UPPER REFERENCE LIMIT (URL) OF TROPONIN, DEFINED THE 99TH PERCENTILE OFcTnI DISTRIBUTION IN A REFERENCE POPULATION, HAS BEEN CONFIRMED THE DECISION THRESHOLDFOR [place] DIAGNOSIS. Performed By: #### C MREP ####[facility] [address] [place] [id number]. Nahed Yañez Covid-19 PCR (CVDTB)on 01-13 SARS-CoV-2 (COVID-19) RNA MIRNA+probe Ql (Unsp spec) Not detected Normal NOT DETECTED [facility] Comment on above: Result Comment: When [...] for this test is supported by the [place] of [employer] and Human Service's declaration that [...] longer be used). Performed By: #### [facility] ####[facility] [address] [place], [place] [address]Dr. Nahed Yañez ECHO LIMITED STUDYon 022 ECHO LIMITED STUDY Normal [facility] GLYCOHEMOGLOBIN A1Con 2021 ADA RECOMMENDATION SEE BELOW Normal [facility] Comment on above: Result Comment: ADA RECOMMENDED LIMIT 4.0 - 6.0 ADA THERAPEUTIC TARGET < 7.0 ACTION SUGGESTED > 7.0 Performed By: #### A 1C ####[facility] O[address] [place], [place] [address]Dr. Nahed Yañez Glucose [Mass/Vol] 140 mg/dL Normal [facility] Comment on above: Performed By: #### A 1C ####[facility] [address] [place], [place] [address]Dr. Nahed Yañez HbA1c (Bld) [Mass fraction] 6.5 % Critically high 4.5-6.2 [facility] Comment on above: Performed By: #### A 1C ####[facility] Afuynnq[address] [place], [place] [address]Dr. Nahed Yañez LIPID PROFILEon 01-31-2022 CHOL-HDL RATIO NORM SEE BELOW Normal The [facility] Comment on above: Result Comment: 3.3 - 4.4 LOW RISK 4.4 - 7.1 AVERAGE RISK 7.1 - 11.0 MODERATE RISK >11.0 HIGH RISK Performed By: #### L IPID ####[facility] [address] [place], [place] [address]Dr. Nahed Yañez Cholesterol [Mass/Vol] 152 mg/dL Normal <=200 Th [facility] Comment on above: Performed By: #### L IPID ####[facility] [address] [place], [place] [address]Li. Nahed Yañez Cholesterol in HDL [Mass/Vol] 74 mg/dL Critically high 40-60 [facility] Comment on above: Performed By: #### L IPID ####[facility] [address]fps[address] [place] [id number]. Nahed Yañez Cholesterol in LDL [Mass/Vol] 62.8 mg/dL Normal [facility] Comment on above: Performed By: #### L IPID ####[facility] [address]qus[address]upi[address] [place] [id number]. Nahed Yañez Cholesterol.total/Chol esterol in HDL [Mass ratio] 2.1 {ratio} Normal [facility] Comment on above: Performed By: #### L IPID ####[facility] [address] [place] [id number]. Nahed Yañez HDL NORMAL > or = 60 mg/dl - LO W CARDIOVASCULAR RISK <40 mg/dl - HIGH CARDIOVASCULAR RISK Normal [facility] Comment on above: Performed By: #### L IPID ####[facility] [address] [place] [id number]. Nahed Yañez LDL CALC NORMAL SEE BELOW Normal [facility] [place] [facility] Comment on above: Result Comment: <100 mg/dl OPTIMAL 100 - 129 mg/dl NEAR OR ABOVE OPTIMAL 130 - 159 mg/dl BORDERLINE HIGH 160 - 189 mg/dl HIGH >190 mg/dl VERY HIGH Performed By: #### L IPID ####[facility] Zxx[address]qrickf[address] [place] [id number]. Nahed Yañez Triglyceride [Mass/Vol] 76 mg/dL Normal <=[address] [facility] Comment on above: Performed By: #### L IPID ####[facility] [address] [place] [id number]. Nahed Yañez VLDL CALC 15.2 mg/dL Normal [facility] Comment on above: Performed By: #### L IPID ####[facility] [address] [place] [id number]. Nahed Yañez XR CHEST 1 Von 01-31-2022 XR CHEST 1 V Normal [facility] BNPon 01-30-2022 Natriuretic peptide B (Bld) [Mass/Vol] 150.0 pg/mL Normal <=900.[address] [facility] Comment on above: Performed By: #### B MP, BNP, CMADM ####[facility] [address] [place] [address]Dr. Rosemarieashley Yañez CARDIAC FRANCISCO ADMITon 022 CK [Catalytic activity/Vol] 88 U/L Normal 26-[address] [facility] Comment on above: Performed By: #### B MP, BNP, CMADM ####[facility] [address]zg[address] [place] [address]Dr. Nahed Otilio CK.MB [Mass/Vol] 1.26 ng/mL Normal <=3.60 The [facility] Comment on above: Performed By: #### B MP, BNP, CMADM ####[facility] [address] [place], [place] [address]Dr. Nahed Yañez HSTROP 69.3 pg/mL Critically high 4.0-51.3 The [facility] Comment on above: Result Comment: CUT- OFF POINTS HAVE BEEN ESTABLISHED BASED ON THE FOURTH UNIVERSAL DEFINITIONS OF MYOCARDIALINFARCTION. THE UPPER REFERENCE LIMIT (URL) OF TROPONIN, DEFINED THE 99TH PERCENTILE OFcTnI DISTRIBUTION IN A REFERENCE POPULATION, HAS BEEN CONFIRMED THE DECISION THRESHOLDFOR [place] DIAGNOSIS. Performed By: #### B MP, BNP, CMADM ####[facility] [address]dsusl[address] [place] [address]Dr. Nahed Otilio ANDRE 59 ng/mL Normal 9-[address] [facility] Comment on above: Performed By: #### B MP, BNP, CMADM ####[facility] [address]att[address] [place] [address]Dr. Nahed Yañez CBC AUTO DIFFon 01-30-2022 BASO # 0.0 103/ul Normal 0.0-0.1 [facility] Comment on above: Performed By: #### C BC ####[facility] [address] [place], [place] [address]Dr. Nahed Yañez Basophils/100 WBC (Bld) 0.2 % Normal 0.2-2.[address] [facility] Comment on above: Performed By: #### C BC ####[facility] [address]udr[address] [place] [address]Dr. Nahed Yañez EO # 0.1 103/ul Normal 0.0-0.[address] [facility] Comment on above: Performed By: #### C BC ####[facility] Sfcxtefgyp[address] [place] [address]Dr. Nahed Yañez Eosinophils/100 WBC (Bld) 0.8 % Critically low 0.9-7.[address] [facility] Comment on above: Performed By: #### C BC ####[facility] N[address]at[address]xr[address] [place], [place] [address]Dr. Nahed Yañez Erythrocyte distribution width (RBC) [Ratio] 14.9 % Normal 11.0-15.0 [facility] Comment on above: Performed By: #### C BC ####[facility] [address]qdw[address] [place], [place] [address]Dr. Nahed Yañez Hematocrit (Bld) [Volume fraction] 45.8 % Normal 36.0-48.[address] [facility] Comment on above: Performed By: #### C BC ####[facility] [address] [place], [place] [address]Dr. Nahed Yañez Hemoglobin (Bld) [Mass/Vol] 14.7 g/dL Normal 12.0-16.[address] [facility] Comment on above: Performed By: #### C BC ####[facility] Yvlvsduik[address] [place], [place] [address]Dr. Nahed Yañez IG # 0.07 10e3/ul Critically high 0.00-0.03 The [facility] Comment on above: Performed By: #### C BC ####[facility] [address] [place], [place] [address]Dr. Nahed Yañez IG % 0.4 % Normal 0.0-0.[address] [facility] Comment on above: Performed By: #### C BC ####[facility] [address]dfvgqv[address] [place] [address]Dr. Nahed Otilio LYMPH # 2.3 103/ul Normal 1.2-3.[address] [facility] Comment on above: Performed By: #### C BC ####[facility] [address] [place] [address]Dr. Nahed Otilio Lymphocytes/100 WBC (Bld) 12.5 % Critically low 20.5-60.[address] [facility] Comment on above: Performed By: #### C BC ####[facility] E[address]hfj[address] [place] [address]Dr. Nahed Otilio MANUAL DIFF REQ NO Normal [facility] Comment on above: Performed By: #### C BC ####[facility] Zshudquotu[address] [place] [address]Dr. Nahed Otilio MCH (RBC) [Entitic mass] 28.0 pg Normal 26.7-34.[address] [facility] Comment on above: Performed By: #### C BC ####[facility] [address]dpfhzvt[address] [place], [place] [address]Dr. Nahed Otilio MCHC (RBC) [Mass/Vol] 32.1 g/dL Normal 29.9-35.[address] [facility] Comment on above: Performed By: #### C BC ####[facility] Ab[address]unrvq[address] [place] [address]Dr. Nahed Otilio MCV (RBC) [Entitic vol] 87.2 fL Normal 81.0-99.[address] [facility] Comment on above: Performed By: #### C BC ####[facility] [address]lsbqjih[address] [place] [address]Dr. Nahed Otilio MONO # 0.9 103/ul Critically high 0.3-0.8 [facility] Comment on above: Performed By: #### C BC ####[facility] [address]qs[address] [place], [place] [address]Dr. Nahed Otilio Monocytes/100 WBC (Bld) 5.1 % Normal 1.7-12.[address] [facility] Comment on above: Performed By: #### C BC ####[facility] [address]ytst[address]wp[address] [place] [address]Dr. Nahed Yañez NEUT # 14.6 103/ul Critically high 1.4-6.5 [facility] Comment on above: Performed By: #### C BC ####[facility] [address]duy[address] [place] [address]Dr. Nahed Yañez Neutrophils/100 WBC (Bld) 81.0 % Critically high 43.0-75.0 [facility] Comment on above: Performed By: #### C BC ####[facility] Pbih[address]oyiz2074 [place] [address]Dr. Nahed Yañez Platelet mean volume (Bld) [Entitic vol] 10.3 fL Normal 9.5-13.[address] [facility] Comment on above: Performed By: #### C BC ####[facility] L[address]zz[address] [place] [address]Dr. Nahed Yañez PLT 280 103/ul Normal 150-450 [facility] Comment on above: Performed By: #### C BC ####[facility] [address]ts[address] [place], [place] [address]Dr. Nahed Yañez RBC 5.25 106/ul Normal 4.20-5.40 [facility] Comment on above: Performed By: #### C BC ####[facility] [address] [place], [place] [address]Dr. Nahed Yañez WBC 18.1 103/ul Critically high 4.0-11.0 [facility] Comment on above: Performed By: #### C BC ####[facility] [address]mff[address] [place], [place] [address]Dr. Rosemarieashley Yañez PROF CHEM 8 (BAS METB)on Anion gap [Moles/Vol] 13.5 mmol/L Normal [facility] Comment on above: Performed By: #### B MP, BNP, CMADM ####[facility] O[address]wbnoufp[address] [place] [address]Dr. Nahed Yañez Calcium [Mass/Vol] 9.5 mg/dL Normal 8.5-10.1 [facility] Comment on above: Performed By: #### B MP, BNP, CMADM ####[facility] Pb[address]yeikn[address] [place] [address]Dr. Nahed Yañez Chloride [Moles/Vol] 102 mmol/L Normal 98-107 [facility] Comment on above: Performed By: #### B MP, BNP, CMADM ####[facility] [address]shdje[address] [place] [address]Dr. Nahed Yañez CO2 [Moles/Vol] 26.6 mmol/L Normal 21.0-32.0 [facility] Comment on above: Performed By: #### B MP, BNP, CMADM ####[facility] Bfxliovpst4024 [place] [address]Dr. Nahed Yañez Creatinine [Mass/Vol] 1.06 mg/dL Critically high 0.55-1.02 [facility] Comment on above: Performed By: #### B MP, BNP, CMADM ####[facility] [address]tyu[address] [place], [place] [address]Dr. Nahed Yañez EGFR-AF OMANI >60 Normal >=60 [facility] Comment on above: Performed By: #### B MP, BNP, CMADM ####[facility] [address]qs[address] [place], [place] [address]Dr. Nahed Yañez EGFR-NON AF OMANI 53 mL/min/1.73m2 Critically low >=60 [facility] Comment on above: Performed By: #### B MP, BNP, CMADM ####[facility] Frdzxgxrop6[address] [place] [address]Dr. Nahed Yañez Glucose [Mass/Vol] 108 mg/dL Critically high 74-106 [facility] Comment on above: Performed By: #### B MP, BNP, CMADM ####[facility] Ch[address]bgdqry[address] [place], [place] [address]Dr. Nahed Yañez Potassium [Moles/Vol] 4.1 mmol/L Normal 3.5-5.1 [facility] Comment on above: Performed By: #### B MP, BNP, CMADM ####[facility] [address] [place] [address]Dr. Nahed Yañez Sodium [Moles/Vol] 138 mmol/L Normal 136-145 [facility] Comment on above: Performed By: #### B MP, BNP, CMADM ####[facility] [address] [place], [place] [address]Ni. Nahed Yañez Urea nitrogen [Mass/Vol] 9.0 mg/dL Normal 7.0-18.0 [facility] Comment on above: Performed By: #### B MP, BNP, CMADM ####[facility] [address] [place], [place] [address]Dz. Rosemarieashley Yañez Urea nitrogen/Creatinine [Mass ratio] 8.5 mg/mg Normal [facility] Comment on above: Performed By: #### B MP, BNP, CMADM ####[facility] [address] [place], [place] [address]Qz. Nahed Yañez Cardiovascular Lab Reporton 11-03-2021 Cardiovascular Lab Report [facility] Patient Name: Vivian [facility] MR #: [id number] Physician: Gasper Avendano, Department of M.D. Medicine Service Date: 11/02/2021 Division of Birthdate: 1960 Cardiology Room #: 4AB [id number] [facility] [place] [address] Cardiovascular Laboratory Report FINAL IMPRESSIONS: 1. Severe, [...] anterior descending coronary artery, placement of a 6-Panamanian MynxGrip closure device. METHODS: After risks, benefits, and alternatives were explained, written informed consent was obtained. The patient was prepped and draped in usual sterile fashion over both groins. Using 1% lidocaine solution, local infiltration anesthesia was achieved over the right groin. Under ultrasound guidance, a micropuncture kit was used to access the right common femoral artery. This was upsized to a 6-Panamanian 11 cm sheath. Angiography via the 6-Panamanian sheath was performed. Bilateral selective coronary angiography was performed using JL4 and JR4 catheters. After reviewing the images, it was elected to proceed with an interventional procedure. A 6-Panamanian XB3.5 guide catheter was advanced over a [...] artery, angiography was repeated initially using a 6-Panamanian 3DRC catheter and subsequently using a 4-Panamanian JR4 catheter. After administration of intracoronary nitroglycerin, the concerning lesion almost completely resolved. There was a residual mild stenosis. All catheters removed. A 6-Panamanian MynxGrip closure device was deployed per protocol [...] and anatomy suitable for closure device. INDICATION: Ucy-WE-oklsutzyj myocardial infarction. Electronically Signed by: Gasper Avendano M.D. 11/21/2021 02:07 P Gasper Avendano M.D (more content not included)... Normal [facility] CBC COMPLETE BLOOD COUNTon 0 - Erythrocyte distribution width (RBC) [Ratio] 14.7 % Normal 11.5-15.0 [facility] Comment on above: Order Comment: No: D o not add to previous draw Performed By: #### 3 1000, 23811 #### [facility] [address] Hematocrit (Bld) [Volume fraction] 34.5 % Low 36.0-45.0 [facility] Comment on above: Order Comment: No: D o not add to previous draw Performed By: #### 3 2960, 31085 #### [facility] [address] [facility] [place] [address], [facility] Hemoglobin (Bld) [Mass/Vol] 10.6 g/dL Low 12.0-15.0 [facility] Comment on above: Order Comment: No: D o not add to previous draw Performed By: #### 3 1580, 69650 #### [facility] [address] [place] [address], [facility] MCH (RBC) [Entitic mass] 28.1 pg Normal 27.0-33.0 [facility] Comment on above: Order Comment: No: D o not add to previous draw Performed By: #### 3 520, 08555 #### [facility] [address] [place] [address], [facility] MCHC (RBC) [Mass/Vol] 30.7 g/dL Low 32.0-35.0 [facility] Comment on above: Order Comment: No: D o not add to previous draw Performed By: #### 3 5199, 33658 #### [facility] [address] [facility] [place] [address], [facility] MCV (RBC) [Entitic vol] 91.5 fL Normal 82.0-98.0 [facility] Comment on above: Order Comment: No: D o not add to previous draw Performed By: #### 3 5199, 50211 #### [facility] [address] [facility] [place] [address], [facility] Nucleated RBC/100 WBC (Bld) [Ratio] 0 % Normal 0-0 [facility] Comment on above: Order Comment: No: D o not add to previous draw Performed By: #### 3 5199, 23780 #### [facility] [address] [facility] [place] [address], [facility] PLAT CNT 219 10*3/uL Normal 150-400 [facility] Comment on above: Order Comment: No: D o not add to previous draw Performed By: #### 3 5199, 70444 #### [facility] [address] [facility] [place] [address], [facility] RBC (Bld) [#/Vol] 3.77 10*6/uL Low 3.80-5.00 [facility] Comment on above: Order Comment: No: D o not add to previous draw Performed By: #### 3 5199, 89131 #### [facility] [address] [place] [address], [facility] WBC (Bld) [#/Vol] 13.64 10*3/uL High 4.00-10.60 [facility] Comment on above: Order Comment: No: D o not add to previous draw Performed By: #### 3 5200, 41867 #### [facility] [address] [place] [address], [facility] HEMOGLOBIN A1Con 11-02-2021 Glucose [Moles/Vol] 140 mmol/L Normal [facility] Comment on above: Order Comment: No: D o not add to previous draw Performed By: #### 3 1791 #### [facility] [address] [place] [address], [facility] HbA1c (Bld) [Mass fraction] 6.5 % High 4.0-6.0 [facility] Comment on above: Order Comment: No: D o not add to previous draw Performed By: #### 3 1791 #### [facility] [address] [place] [address], [facility] LIPID PROFILEon 11-02-2021 Cholesterol [Mass/Vol] 171 mg/dL Normal 120-200 [facility] Comment on above: Order Comment: No: D o not add to previous draw Result Comment: CHOL ESTEROL REFERENCE RANGE: 20 YEARS AND OLDER CARDIOVASCULAR RISK Less than 200 mg/dl Low Risk 200 to 239 mg/dl Borderline Risk 240 mg/dl and greater High Risk Performed By: #### 3 5200, 55128 #### [facility] [address] [place] [address], [facility] Cholesterol in HDL [Mass/Vol] 57 mg/dL Normal 23-92 [facility] Comment on above: Order Comment: No: D o not add to previous draw Result Comment: Slig ht variation in normal range could be due to gender and/or age. HDL CHOLESTEROL REFERENCE RANGE: 20 years and older Cardiovascular Risk > or =60 mg/dL Desirable 40 TO 59 mg/dL Low Risk <40 mg/dL High Risk Performed By: #### 3 5200, 18425 #### [facility] [address] [place] [address], [facility] Cholesterol in LDL [Mass/Vol] 89 mg/dL Normal 0-130 [facility] Comment on above: Order Comment: No: D o not add to previous draw Result Comment: LDL IS A CALCULATION LDL IS ONLY VALID IF THE TRIG IS LESS THAN 400. Performed By: #### 3 5200, 29503 #### [facility] [address] [place] [address], [facility] Cholesterol.total/Chol esterol in HDL [Mass ratio] 3.0 {ratio} Normal .0-4.5 [facility] Comment on above: Order Comment: No: D o not add to previous draw Performed By: #### 3 5200, 54293 #### [facility] [address] [place] [address], [facility] NON-HDL CHOLESTEROL 114 mg/dL Normal [facility] Comment on above: Order Comment: No: D o not add to previous draw Performed By: #### 3 5200, 16574 #### [facility] [address] [place] [address], [facility] Triglyceride [Mass/Vol] 124 mg/dL Normal 40-149 [facility] Comment on above: Order Comment: No: D o not add to previous draw Result Comment: TRIG LYCERIDE REFERENCE RANGE: 20 YEARS AND OLDER CARDIOVASCULAR RISK LESS THAN 150 mg/dl LOW RISK 150 TO 199 mg/dl BORDERLINE RISK 200 mg/dl AND GREATER HIGH RISK Performed By: #### 3 5200, 56023 #### [facility] [address] [place] [address], [facility] VLDL CHOL 25 mg/dL Normal 0-40 [facility] Comment on above: Order Comment: No: D o not add to previous draw Performed By: #### 3 5200, 53867 #### [facility] [address] [place] [address], [facility] TROPONIN-Ion 11-02-2021 Troponin I.cardiac [Mass/Vol] 0.14 ng/mL Critically high 0.00-0.04 [facility] Comment on above: Result Comment: M-NC EVIOUS CRITICAL RESULT REFERENCE RANGES: 0.00 - 0.04 ng/ml NORMAL 0.05 - 0.50 ng/ml INDETERMINATE > 0.50 ng/ml CONSISTENT WITH AN M.I. Performed By: #### 3 5200, 00577 #### [facility] [address] Troponin I.cardiac [Mass/Vol] 0.19 ng/mL Critically high 0.00-0.04 [facility] Comment on above: Order Comment: No: D o not add to previous draw Result Comment: M-NC EVIOUS CRITICAL RESULT REFERENCE RANGES: 0.00 - 0.04 ng/ml NORMAL 0.05 - 0.50 ng/ml INDETERMINATE > 0.50 ng/ml CONSISTENT WITH AN M.I. Performed By: #### 3 5200 #### [facility] [address] [facility] [place] [address], [facility] TYPE AND SCREENon 11-02-2021 ABO INTERPRETATION O Normal [facility] Comment on above: Performed By: #### 3 5200, 15811 #### [facility] [address] [facility] [place] [address], [facility] RH INTERPRETATION Positive Normal [facility] Comment on above: Performed By: #### 3 5200, 45725 #### [facility] [address] [facility] [place] [address], [facility] UFH HEPARIN ASSAYon 11-03-19 22 UNFRACTIONATED HEPARIN 0.76 IU/mL High 0.30-0.70 [facility] Comment on above: Result Comment: Clare roxaban and Apixaban will interfere with the anti Xa assay used to monitor UFH and LMWH. Performed By: #### 3 5200, 27576 #### [facility] [address] [facility]. [address] UNFRACTIONATED HEPARIN 0.96 IU/mL Critically high 0.30-0.7 0 [facility] Comment on above: Result Comment: Resu lt checked and called. Accurately read back by Kathy Suárez RN at 0548 Rivaroxaban and Apixaban will interfere with the anti Xa assay used to monitor UFH and LMWH. Performed By: #### 3 0477 #### [facility] [address] [facility]. [address] APTTon 11-01-2021 aPTT Coag (Bld) [Time] 28.6 s Normal 25.0-35.0 [facility] Comment on above: Order Comment: No: D [...] THIS PURPOSE. Performed By: #### 3 5200, 11897 #### [facility] [address] [place] [address], [facility] BNPon 11-01-2021 Natriuretic peptide B (Bld) [Mass/Vol] 9643.0 pg/mL Critically high <=900.0 [facility] Comment on above: Performed By: #### C MP, BNP, HSTROPN ####[facility] [address] [place], [place] [address]Qv. Nahed Yañez BNP (B-TYPE NATRIURETIC PEPT AYLEEN)on 11-01-2021 Natriuretic peptide B (Bld) [Mass/Vol] 768 pg/mL High 0-100 [facility] Comment on above: Order Comment: No: D o not add to previous draw Result Comment: Give n the appropriate clinical setting a BNP result of >100 pg/mL indicates congestive heart failure. Performed By: #### 8 5123 #### [facility] [address] [place] [address], [facility] CBC AUTO DIFFon 11-01-2021 BASO # 0.0 103/ul Normal 0.0-0.[address] [facility] Comment on above: Performed By: #### C BC ####[facility] [address] [place], [place] [address]Dr. Nahed Yañez Basophils/100 WBC (Bld) 0.1 % Critically low 0.2-2.[address] [facility] Comment on above: Performed By: #### C BC ####[facility] [address] [place], [place] [address]Dr. Nahed Yañez EO # 0.0 103/ul Normal 0.0-0.[address] [facility] Comment on above: Performed By: #### C BC ####[facility] Af[address]ycofmi[address] [place], [place] [address]Dr. Nahed Yañez Eosinophils/100 WBC (Bld) 0.0 % Critically low 0.9-7.[address] [facility] Comment on above: Performed By: #### C BC ####[facility] Ryypmgcycx[address] [place], [place] [address]Dr. Nahed Yañez Erythrocyte distribution width (RBC) [Ratio] 14.7 % Normal 11.0-15.0 [facility] Comment on above: Performed By: #### C BC ####[facility] Kdxlqatoau[address] [place], [place] [address]Dr. Nahed Yañez Hematocrit (Bld) [Volume fraction] 36.1 % Normal 36.0-48.[address] [facility] Comment on above: Performed By: #### C BC ####[facility] Uwaaecwdmr[address] [place], [place] [address]Dr. Nahed Yañez Hemoglobin (Bld) [Mass/Vol] 11.1 g/dL Critically low 12.0-16.[address] [facility] Comment on above: Result Comment: IV a ntibiotics Performed By: #### C BC ####[facility] S[address]wkdajbmw[address] [place], [place] [address]Dr. Nahed Yañez IG # 0.09 10e3/ul Critically high 0.00-0.03 [facility] Comment on above: Performed By: #### C BC ####[facility] Erjtjhhofq11[address] [place] [id number]. Nahed Yañez IG % 0.7 % Critically high 0.0-0.5 The [facility] Comment on above: Performed By: #### C BC ####[facility] Stphzylrqx3543 [place] [id number]. Nahed Yañez LYMPH # 0.6 103/ul Critically low 1.2-3.8 The [facility] Comment on above: Performed By: #### C BC ####[facility] Vrfowkoepf1165 [place] [id number]. Nahed Yañez Lymphocytes/100 WBC (Bld) 4.8 % Critically low 20.5-60.0 [facility] Comment on above: Performed By: #### C BC ####[facility] [address]ewhfifk[address] [place] [id number]. Nahed Yañez MANUAL DIFF REQ NO Normal [facility] Comment on above: Performed By: #### C BC ####[facility] Sojhddpsik4701 [place] [id number]. Nahed Yañez MCH (RBC) [Entitic mass] 28.2 pg Normal 26.7-34.0 [facility] Comment on above: Performed By: #### C BC ####[facility] Cbthkusser6633 [place] [id number]. Nahed Yañez MCHC (RBC) [Mass/Vol] 30.7 g/dL Normal 29.9-35.[address] [facility] Comment on above: Performed By: #### C BC ####[facility] Smnkizpuvu4569 [place] [phone]. Nahed Yañez MCV (RBC) [Entitic vol] 91.9 fL Normal 81.0-99.[address] [facility] Comment on above: Performed By: #### C BC ####[facility] Imabarxtlf0460 [place] [phone]. Nahed Yañez MONO # 0.2 103/ul Critically low 0.3-0.8 The [facility] Comment on above: Performed By: #### C BC ####[facility] Cjoututzdx7435 [place] [phone]. Nahed Yañez Monocytes/100 WBC (Bld) 1.7 % Normal 1.7-12.[address] [facility] Comment on above: Performed By: #### C BC ####[facility] Dvbvigypkp2959 [place] [phone]. Nahed Yañez NEUT # 11.2 103/ul Critically high 1.4-6.5 The [facility] Comment on above: Performed By: #### C BC ####[facility] Qjfstcvwns9204 [place] [address]Dr. Nahed Yañez Neutrophils/100 WBC (Bld) 92.7 % Critically high 43.0-75.[address] [facility] Comment on above: Performed By: #### C BC ####[facility] Ojshlrxkyt7360 [place] [address]Dr. Nahed Yañez Platelet mean volume (Bld) [Entitic vol] 11.1 fL Normal 9.5-13.[address] [facility] Comment on above: Performed By: #### C BC ####[facility] Pnaejmbash3172 [place] [address]Dr. Nahed Yañez PLT 213 103/ul Normal 150-[address] [facility] Comment on above: Performed By: #### C BC ####[facility] Kavzsmmioa9814 [place] [address]Dr. Nahed Yañez RBC 3.93 106/ul Critically low 4.20-5.40 [facility] Comment on above: Performed By: #### C BC ####[facility] Ljndxgjizc3369 [place] [phone]. Nahed Yañez WBC 12.0 103/ul Critically high 4.0-11.0 The [facility] Comment on above: Performed By: #### C BC ####[facility] Mgnhwjglwp4625 [place] [phone]. Nahed Yañez CBC W/DIFFon 11-01-2021 ABS IMM GRANS 0.2 10*3/uL Normal 0.0-0.2 [facility] Comment on above: Order Comment: No: D o not add to previous draw Performed By: #### 3 5200, 03567 #### [facility] [address] [place] [address], [facility] ABS NEUTROPHILS 12.5 10*3/uL High 1.6-7.6 [facility] Comment on above: Order Comment: No: D o not add to previous draw Performed By: #### 3 5199, 05039 #### [facility] [address] [place] [address], [facility] Basophils (Bld) [#/Vol] 0.0 10*3/uL Normal 0.0-0.2 [facility] Comment on above: Order Comment: No: D o not add to previous draw Performed By: #### 3 5199, 32819 #### [facility] [address] [place] [address], [facility] Basophils/100 WBC (Bld) 0.0 % Normal 0.0-1.0 [facility] Comment on above: Order Comment: No: D o not add to previous draw Performed By: #### 3 5199, 53693 #### [facility] [address] [place] [address], [facility] Eosinophils (Bld) [#/Vol] 0.0 10*3/uL Normal 0.0-0.5 [facility] Comment on above: Order Comment: No: D o not add to previous draw Performed By: #### 3 5199, 29485 #### [facility] [address] [place] [address], [place] Eosinophils/100 WBC (Bld) 0.0 % Normal 0.0-6.0 [facility] Comment on above: Order Comment: No: D o not add to previous draw Performed By: #### 3 5199, 97061 #### [facility] [address] [place] [address], [place] Erythrocyte distribution width (RBC) [Ratio] 14.6 % Normal 11.5-15.0 [facility] Comment on above: Order Comment: No: D o not add to previous draw Performed By: #### 3 5199, 01578 #### [facility] [address] [place] [address], [facility] Hematocrit (Bld) [Volume fraction] 36.6 % Normal 36.0-45.0 [facility] Comment on above: Order Comment: No: D o not add to previous draw Performed By: #### 3 5199, 43751 #### [facility] [address] [place] [address], [facility] Hemoglobin (Bld) [Mass/Vol] 11.4 g/dL Low 12.0-15.0 [facility] Comment on above: Order Comment: No: D o not add to previous draw Performed By: #### 3 5199, 91518 #### [facility] [address] [place] [address], [facility] IMMATURE GRANS 1.2 % High 0.0-1.0 [facility] Comment on above: Order Comment: No: D o not add to previous draw Performed By: #### 3 5199, 63524 #### [facility] [address] [place] [address], [facility] Lymphocytes (Bld) [#/Vol] 0.6 10*3/uL Low 1.2-4.0 [facility] Comment on above: Order Comment: No: D o not add to previous draw Performed By: #### 3 5199, 78989 #### [facility] [address] [place] [id number], [place] Lymphocytes/100 WBC (Bld) 4.2 % Low 20.0-45.0 [facility] Comment on above: Order Comment: No: D o not add to previous draw Performed By: #### 3 5199, 78436 #### [facility] [address] [place] [address], [facility] MCH (RBC) [Entitic mass] 28.2 pg Normal 27.0-33.0 [facility] Comment on above: Order Comment: No: D o not add to previous draw Performed By: #### 3 0, 29400 #### [facility] [address] [place] [address], [facility] MCHC (RBC) [Mass/Vol] 31.1 g/dL Low 32.0-35.0 [facility] Comment on above: Order Comment: No: D o not add to previous draw Performed By: #### 3 5199, 50973 #### [facility] [address] [facility] [place] [address], [facility] MCV (RBC) [Entitic vol] 90.6 fL Normal 82.0-98.0 [facility] Comment on above: Order Comment: No: D o not add to previous draw Performed By: #### 3 5199, 91844 #### [facility] [address] [facility] [place] [address], [facility] Monocytes (Bld) [#/Vol] 0.5 10*3/uL Normal 0.1-1.0 [facility] Comment on above: Order Comment: No: D o not add to previous draw Performed By: #### 3 5199, 41482 #### [facility] [address] [facility] [place] [address], [facility] MONOS 3.3 % Low 5.0-12.0 [facility] Comment on above: Order Comment: No: D o not add to previous draw Performed By: #### 3 5199, 91131 #### [facility] [address] [facility] [place] [address], [facility] Neutrophils/100 WBC (Bld) 91.3 % High 40.0-72.0 [facility] Comment on above: Order Comment: No: D o not add to previous draw Performed By: #### 3 5200, 23349 #### [facility] [address] [place] [address], [facility] Nucleated RBC/100 WBC (Bld) [Ratio] 0 % Normal 0-0 [facility] Comment on above: Order Comment: No: D o not add to previous draw Performed By: #### 3 5200, 65520 #### [facility] [address] [place] [id number], [facility] PLAT CNT 224 10*3/uL Normal 150-400 [facility] Comment on above: Order Comment: No: D o not add to previous draw Performed By: #### 3 5200, 75243 #### [facility] [address] [place] [address], [facility] RBC (Bld) [#/Vol] 4.04 10*6/uL Normal 3.80-5.00 [facility] Comment on above: Order Comment: No: D o not add to previous draw Performed By: #### 3 5200, 23013 #### [facility] [address] [place] [address], [facility] WBC (Bld) [#/Vol] 13.70 10*3/uL High 4.00-10.60 [facility] Comment on above: Order Comment: No: D o not add to previous draw Performed By: #### 3 5200, 05614 #### [facility] [address] [place] [address], [facility] COMP METABOLIC PANELon 11-01 Albumin [Mass/Vol] 3.7 g/dL Normal 3.5-5.7 [facility] Comment on above: Order Comment: No: D o not add to previous draw Performed By: #### 0 0121, 44481, 49731 #### [facility] [address] [place] [address], [facility] ALKALINE PHOSPH 54 IU/L Normal 34-104 [facility] Comment on above: Order Comment: No: D o not add to previous draw Performed By: #### 0 0121, 17623, 22259 #### [facility] [address] [place] [address], [place] ALT [Catalytic activity/Vol] 12 U/L Normal 7-52 [facility] Comment on above: Order Comment: No: D o not add to previous draw Performed By: #### 0 0121, 96878, 50978 #### [facility] [address] [place] [address], [place] AST [Catalytic activity/Vol] 17 U/L Normal 13-39 [facility] Comment on above: Order Comment: No: D o not add to previous draw Performed By: #### 0 0121, 08271, 84659 #### [facility] [address] [place] [address], [place] Bilirubin [Mass/Vol] 0.3 mg/dL Normal 0.3-1.0 [facility] Comment on above: Order Comment: No: D o not add to previous draw Performed By: #### 0 0121, 07985, 89960 #### [facility] [address] [place] [address], [place] Calcium [Mass/Vol] 9.4 mg/dL Normal 8.6-10.3 [facility] Comment on above: Order Comment: No: D o not add to previous draw Performed By: #### 0 0121, 25373, 70489 #### [facility] [address] [place] [address], [place] Chloride [Moles/Vol] 100 mmol/L Normal 98-107 [facility] Comment on above: Order Comment: No: D o not add to previous draw Performed By: #### 0 0121, 67554, 37672 #### [facility] [address] [place] [address], [place] CO2 [Moles/Vol] 29 mmol/L Normal 21-31 [facility] Comment on above: Order Comment: No: D o not add to previous draw Performed By: #### 0 0121, 25999, 22322 #### [facility] [address] [place] [address], [place] Creatinine [Mass/Vol] 1.04 mg/dL Normal 0.60-1.20 [facility] Comment on above: Order Comment: No: D o not add to previous draw Performed By: #### 0 0121, 81167, 88949 #### [facility] [address] [place] [address], [place] eGFR- non- 54 ml/min/1.73sq m Abnormal >60 [facility] Comment on above: Order Comment: No: D o not add to previous draw Performed By: #### 0 0121, 06191, 99166 #### [facility] [address] [place] [address], [place] GFR/1.73 sq M.predicted among blacks MDRD (S/P/Bld) [Vol rate/Area] mL/min/{1.73_m2} Normal >60 [facility] Comment on above: Order Comment: No: D o not add to previous draw Performed By: #### 0 0121, 54233, 11826 #### [facility] [address] [place] [address], [place] Glucose [Mass/Vol] 239 mg/dL High 70-100 [facility] Comment on above: Order Comment: No: D o not add to previous draw Performed By: #### 0 0121, 15963, 57316 #### [facility] [address] [place] [address], [place] Potassium [Moles/Vol] 4.3 mmol/L Normal 3.5-5.1 [facility] Comment on above: Order Comment: No: D o not add to previous draw Performed By: #### 0 0121, 47202, 94675 #### [facility] [address] [place] [address], [place] Protein [Mass/Vol] 5.6 g/dL Low 6.0-8.3 [facility] Comment on above: Order Comment: No: D o not add to previous draw Performed By: #### 0 0121, 96476, 00044 #### [facility] [address] [place] [address], [facility] Sodium [Moles/Vol] 139 mmol/L Normal 136-145 [facility] Comment on above: Order Comment: No: D o not add to previous draw Performed By: #### 0 0121, 61217, 13594 #### [facility] [address] [place] [address], [facility] Urea nitrogen [Mass/Vol] 24 mg/dL Normal 7-25 [facility] Comment on above: Order Comment: No: D o not add to previous draw Performed By: #### 0 0121, 00979, 46838 #### [facility] [address] [place] [address], [facility] MAGNESIUM BLOODon 11-01-2021 Magnesium [Mass/Vol] 2.0 mg/dL Normal 1.9-2.7 [facility] Comment on above: Order Comment: No: D o not add to previous draw Performed By: #### 0 0121, 54368, 06173 #### [facility] [address] [facility] [place] [address], [facility] PROF 14(COMP METB)on 022 Albumin [Mass/Vol] 3.1 g/dL Critically low 3.4-5.0 [facility] Comment on above: Performed By: #### C MP, BNP, HSTROPN ####[facility] Ezjkjffcqz0881 [place] [address]DrShaun Yaeñz Albumin/Globulin [Mass ratio] 1.0 {ratio} Normal [facility] Comment on above: Performed By: #### C MP, BNP, HSTROPN ####[facility] Drpvjelhrk5431 [place] [address]DrShaun Yañez ALP [Catalytic activity/Vol] 56 U/L Normal 46-116 [facility] Comment on above: Performed By: #### C MP, BNP, HSTROPN ####[facility] Zojphrpgat8320 [place] [address]Dr. Nahed Yañez ALT [Catalytic activity/Vol] 19 U/L Normal 14-59 [facility] Comment on above: Performed By: #### C MP, BNP, HSTROPN ####[facility] Zysvjumxqo8917 [place] [address]Dr. Nahed Yañez Anion gap [Moles/Vol] 14.3 mmol/L Normal Th e [facility] Comment on above: Performed By: #### C MP, BNP, HSTROPN ####[facility] Xxtzvslxax[address] [place], [place] [address]Dr. Nahed Yañez AST [Catalytic activity/Vol] 18 U/L Normal 15-37 [facility] Comment on above: Performed By: #### C MP, BNP, HSTROPN ####[facility] Kpyrmzfovy8157 [place] [address]Dr. Nahed Yañez Bilirubin [Mass/Vol] 0.4 mg/dL Normal 0.2-1.0 [facility] Comment on above: Performed By: #### C MP, BNP, HSTROPN ####[facility] Saqwkvudtk0544 [place] [address]Dr. Nahed Yañez Calcium [Mass/Vol] 9.3 mg/dL Normal 8.5-10.1 [facility] Comment on above: Performed By: #### C MP, BNP, HSTROPN ####[facility] Bqndldimag7582 [place] [address]Dr. Nahed Yañez Chloride [Moles/Vol] 102 mmol/L Normal 98-107 [facility] Comment on above: Performed By: #### C MP, BNP, HSTROPN ####[facility] Pwsswkodud5295 [place] [address]Dr. Nahed Yañez CO2 [Moles/Vol] 27.1 mmol/L Normal 21.0-32.0 [facility] Comment on above: Performed By: #### C MP, BNP, HSTROPN ####[facility] Ejvfutvzlq9205 [place] [address]Dr. Nahed Yañez Creatinine [Mass/Vol] 1.25 mg/dL Critically high 0.55-1.02 [facility] Comment on above: Performed By: #### C MP, BNP, HSTROPN ####[facility] Uvyaajdrrp9439 [place] [address]Dr. Nahed Yañez EGFR-AF OMANI 53 mL/min/1.73m2 Critically low >=60 [facility] Comment on above: Performed By: #### C MP, BNP, HSTROPN ####[facility] Fotocptudd[address] [place], [place] [address]Dr. Nahed Yañez EGFR-NON AF OMANI 44 mL/min/1.73m2 Critically low >=60 [facility] Comment on above: Performed By: #### C MP, BNP, HSTROPN ####[facility] Xzvxukwpej[address] [place], [place] [address]Dr. Nahed Yañez Globulin (S) [Mass/Vol] 3.2 g/dL Normal [facility] Comment on above: Performed By: #### C MP, BNP, HSTROPN ####[facility] Twexorvbdp[address] [place], [place] [address]Dr. Nahed Yañez Glucose [Mass/Vol] 248 mg/dL Critically high 74-106 [facility] Comment on above: Performed By: #### C MP, BNP, HSTROPN ####[facility] Kilqjoldrz20[address] [place], [place] [address]Dr. Nahed Yañez Potassium [Moles/Vol] 3.4 mmol/L Critically low 3.5-5.1 [facility] Comment on above: Performed By: #### C MP, BNP, HSTROPN ####[facility] Rsgautaiqf[address] [place], [place] [address]Dr. Nahed Yañez Protein [Mass/Vol] 6.3 g/dL Critically low 6.4-8.2 [facility] Comment on above: Performed By: #### C MP, BNP, HSTROPN ####[facility] Emmskhlfcx0394 [place] [id number]. Nahed Yañez Sodium [Moles/Vol] 140 mmol/L Normal 136-145 [facility] Comment on above: Performed By: #### C MP, BNP, HSTROPN ####[facility] Vvktvbetzv5215 [place] [id number]. Nahed Yañez Urea nitrogen [Mass/Vol] 18.0 mg/dL Normal 7.0-18.0 [facility] Comment on above: Performed By: #### C MP, BNP, HSTROPN ####[facility] Kylcorhfoo2519 [place] [address]Dr. Nahed Yañez Urea nitrogen/Creatinine [Mass ratio] 14.4 mg/mg Normal [facility] Comment on above: Performed By: #### C MP, BNP, HSTROPN ####[facility] Rmebmoqurc0826 [place] [address]Dr. Nahed Otilio PROTHROMBIN TIMEon 2 INR Coag (PPP) [Relative time] 1.06 {INR} Normal 0.91-1.16 [facility] Comment on above: Order Comment: No: [...] 1995;108:[id number]. Performed By: #### 5 6101 #### [facility] [address] [facility] [place] [address], [facility] PT Coag (PPP) [Time] 13.8 s Normal 12.3-14.8 [facility] Comment on above: Order Comment: No: D o not add to previous draw Result Comment: ALL RESULTS MUST BE INTERPRETED WITH RESPECT TO BLOOD DRAWING ARTIFACT OR DILUTION ERROR OF ANTICOAGULANT AT THE TIME OF SAMPLING. Performed By: #### 5 6101 #### [facility] [address] [facility] [place] [place] [address], [facility] TROPONIN, HIGH SENSITIVITYon 11-01-2021 HSTROP 1684.4 pg/mL Critically high 4.0-51.3 [facility] Comment on above: Result Comment: CUT- OFF POINTS HAVE BEEN ESTABLISHED BASED ON THE FOURTH UNIVERSAL DEFINITIONS OF MYOCARDIALINFARCTION. THE UPPER REFERENCE LIMIT (URL) OF TROPONIN, DEFINED THE 99TH PERCENTILE OFcTnI DISTRIBUTION IN A REFERENCE POPULATION, HAS BEEN CONFIRMED THE DECISION THRESHOLDFOR VT DIAGNOSIS. Performed By: #### C MP, BNP, HSTROPN ####[facility] Flpuftkygr1356 [place] [address]DrShaun Yañez TROPONIN-Ion 11-01-2021 Troponin I.cardiac [Mass/Vol] 0.22 ng/mL Critically high 0.00-0.04 [facility] Comment on above: Order Comment: No: D o not add to previous draw Result Comment: M-TR OPONIN INITIAL CRITICAL HIGH; RESPUN AND RETESTED M-CRITICAL RESULT(S) REVIEWED, CALLED TO AND READ BACK BY Kathy Suárez RN at 2205. REFERENCE RANGES: 0.00 - 0.04 ng/ml NORMAL 0.05 - 0.50 ng/ml INDETERMINATE > 0.50 ng/ml CONSISTENT WITH AN M.I. Performed By: #### 0 0121, 19386, 08620 #### [facility] [address] [facility] [place] [place] [address], [facility] UFH HEPARIN ASSAYon 06-21-20 22 UNFRACTIONATED HEPARIN 0.55 IU/mL Normal 0.30-0.70 Th [facility] Comment on above: Result Comment: Clare roxaban and Apixaban will interfere with the anti Xa assay used to monitor UFH and LMWH. Performed By: #### 3 5200, 05560 #### [facility] [address] [place] [address], [facility] BLOOD GASES BTYon 10-31-2021 02 MODE ROOM AIR Normal [facility] Comment on above: Performed By: #### A BG ####[facility] [address]xchnmae[address] [place] [address]Dr. Nahed Yañez ALLENS TEST Positive Normal [facility] Comment on above: Performed By: #### A BG ####[facility] Clvjtefhbs8797 [place] [address]Dr. Nahed Yañez Base excess Calc (Bld) [Moles/Vol] 3.5 mmol/L Critically high -2.0-2.0 [facility] Comment on above: Performed By: #### A BG ####[facility] Lzaouxvits5993 [place] [address]Dr. Nahed Yañez BIPAP PRESSURE Normal [facility] Comment on above: Performed By: #### A BG ####[facility] Kfiyozhdbb0192 [place] [address]Dr. Nahed Yañez CO2 [Moles/Vol] 56.3 mmol/L Critically high 23.0-28.0 [facility] Comment on above: Performed By: #### A BG ####[facility] Gqjsvykgay3549 [place] [address]Dr. Nahed Yañez CPAP Normal [facility] Comment on above: Performed By: #### A BG ####[facility] Rxrsakcrls4981 [place] [address]Dr. Nahed Yañez FIO2 Normal [facility] Comment on above: Performed By: #### A BG ####[facility] Fbmmacwdpi7955 [place] [address]Dr. Nahed Yañez HCO3 (Bld) [Moles/Vol] 26.8 mmol/L Critically high 22.0-26 .0 [facility] Comment on above: Performed By: #### A BG ####[facility] Y[address]pbjsbly[address] [place], [place] [address]Dr. Nahed Yañez LPM Normal [facility] Comment on above: Performed By: #### A BG ####[facility] Tmbcwpcarm[address] [place], [place] [address]Dr. Nahed Yañez MINUTE VOLUME Normal [facility] Comment on above: Performed By: #### A BG ####[facility] Mppabjcvdi[address] [place], [place] [address]Dr. Nahed Yañez Oxygen (Bld) [Partial pressure] 51.8 mm[Hg] Critically low 80.0-100.0 [facility] Comment on above: Performed By: #### A BG ####[facility] Nkzlvfcbol[address] [place], [place] [address]Dr. Nahed Yañez Oxygen saturation in Blood 86.3 % Critically low 95.0-100.0 [facility] Comment on above: Performed By: #### A BG ####[facility] H[address]kjvqvx8[address] [place], [place] [address]Dr. Nahed Yañez PCO2 43.8 mmHg Normal 35.0-45.0 [facility] Comment on above: Performed By: #### A BG ####[facility] Jbhlmhlnup[address] [place], [place] [address]Dr. Nahed Yañez PEEP Normal [facility] Comment on above: Performed By: #### A BG ####[facility] V[address]bejhrjkd[address] [place], [place] [address]Dr. Nahed Yañez pH (Bld) 7.415 [pH] Normal 7.350-7.[address] [facility] Comment on above: Performed By: #### A BG ####[facility] Gjquburxcm[address] [place], [place] [address]Dr. Nahed Yañez PIP [facility] Comment on above: Performed By: #### A BG ####[facility] Awgbyzmgue16[address] [place], [place] [address]Dr. Nahed Yañez PS [facility] Comment on above: Performed By: #### A BG ####[facility] Cqsytxalyp3884 [place] [address]Dr. Nahed Yañez PUNCTURE SITE RR Normal [facility] Comment on above: Performed By: #### A BG ####[facility] Jcafuphvge18[address] [place] [address]Dr. Nahed Yañez RATE Normal [facility] Comment on above: Performed By: #### A BG ####[facility] Hkmocrxqst1139 [place] [address]Dr. Nahed Yañez VENT MODE Normal [facility] Comment on above: Performed By: #### A BG ####[facility] Eepeidgaxr5119 [place] [address]Dr. Nahed Yañez VT [facility] Comment on above: Performed By: #### A BG ####[facility] Dqhbmsrlos7544 [place] [address]Dr. Nahed Yañez BNPon 2 Natriuretic peptide B (Bld) [Mass/Vol] 13247.0 pg/mL Critically high <=900.0 [facility] Comment on above: Performed By: #### T 4, TSH, BNP, CMADM ####[facility] Kmqvlikjgm[address] [place], [place] [address]Dr. Nahed Yañez CARDIAC FRANCISCO 3-6on 2 CK [Catalytic activity/Vol] 91 U/L Normal 26-192 [facility] Comment on above: Performed By: #### C MREP ####[facility] Eflxamajoh7556 [place] [address]Dr. Nahed Yañez CK.MB [Mass/Vol] 7.32 ng/mL Critically high <=3.60 [facility] Comment on above: Result Comment: test repeated critical value verified Performed By: #### C MREP ####[facility] Zrdngcnjgn[address] [place], [place] [address]Dr. Nahed Yañez HSTROP 2823.1 pg/mL Critically high 4.0-51.3 [facility] Comment on above: Result Comment: CUT- OFF POINTS HAVE BEEN ESTABLISHED BASED ON THE FOURTH UNIVERSAL DEFINITIONS OF MYOCARDIALINFARCTION. THE UPPER REFERENCE LIMIT (URL) OF TROPONIN, DEFINED THE 99TH PERCENTILE OFcTnI DISTRIBUTION IN A REFERENCE POPULATION, HAS BEEN CONFIRMED THE DECISION THRESHOLDFOR [place] DIAGNOSIS.test repeated critical value verified Performed By: #### C MREP ####[facility] Dwokswvugm1879 [place] [address]Dr. Nahed Yañez CARDIAC FRANCISCO ADMITon 022 CK [Catalytic activity/Vol] 85 U/L Normal 26-192 [facility] Comment on above: Performed By: #### T 4, TSH, BNP, CMADM ####[facility] Xznhduflcc9977 [place] [address]Dr. Nahed Yañez CK.MB [Mass/Vol] 6.44 ng/mL Critically high <=3.60 [facility] Comment on above: Performed By: #### T 4, TSH, BNP, CMADM ####[facility] Yhfjyjdlie3183 [place] [address]Dr. Nahed Yañez HSTROP 3194.8 pg/mL Critically high 4.0-51.3 [facility] Comment on above: Result Comment: CUT- OFF POINTS HAVE BEEN ESTABLISHED BASED ON THE FOURTH UNIVERSAL DEFINITIONS OF MYOCARDIALINFARCTION. THE UPPER REFERENCE LIMIT (URL) OF TROPONIN, DEFINED THE 99TH PERCENTILE OFcTnI DISTRIBUTION IN A REFERENCE POPULATION, HAS BEEN CONFIRMED THE DECISION THRESHOLDFOR [place] DIAGNOSIS. Performed By: #### T 4, TSH, BNP, CMADM ####[facility] Hnzxuxutme0617 [place] [address]Dr. Nahed Yañez ANDRE 57 ng/mL Normal 9-82 [facility] Comment on above: Performed By: #### T 4, TSH, BNP, CMADM ####[facility] Gufnowzeas4949 [place] [address]Dr. Nahed Yañez CBC AUTO DIFFon 10-31-2021 BASO # 0.0 103/ul Normal 0.0-0.1 [facility] Comment on above: Performed By: #### C BC ####[facility] Lyopbkwhbx3810 [place] [address]Dr. Nahed Yañez Basophils/100 WBC (Bld) 0.2 % Normal 0.2-2.0 [facility] Comment on above: Performed By: #### C BC ####[facility] Nxjcjowjnm5125[address] [place], [place] [address]Dr. Nahed Yañez EO # 0.0 103/ul Normal 0.0-0.7 [facility] Comment on above: Performed By: #### C BC ####[facility] Vqpazpneob669[address] [place], [place] [address]Dr. Nahed Yañez Eosinophils/100 WBC (Bld) 0.1 % Critically low 0.9-7.0 [facility] Comment on above: Performed By: #### C BC ####[facility] Zhezkfohxd7669[address] [place], [place] [address]Dr. Nahed Yañez Erythrocyte distribution width (RBC) [Ratio] 14.8 % Normal 11.0-15.0 [facility] Comment on above: Performed By: #### C BC ####[facility] Lmytcxfkoi6250[address] [place], [place] [address]Dr. Nahed Yañez Hematocrit (Bld) [Volume fraction] 44.4 % Normal 36.0-48.0 [facility] Comment on above: Performed By: #### C BC ####[facility] Ezwchnmnpm227[address] [place], [place] [address]Dr. Nahed Yañez Hemoglobin (Bld) [Mass/Vol] 14.1 g/dL Normal 12.0-16.0 [facility] Comment on above: Performed By: #### C BC ####[facility] Zpfqpxbdio7415[address] [place], [place] [address]DrShaun Yañez IG # 0.04 10e3/ul Critically high 0.00-0.03 [facility] Comment on above: Performed By: #### C BC ####[facility] Ewizgzuucv234[address] [place], [place] [address]Dr. Nahed Yañez IG % 0.3 % Normal 0.0-0.[address] [facility] Comment on above: Performed By: #### C BC ####[facility] Zqpfdrlhbx9[address] [place], [place] [address]DrShaun Yañez LYMPH # 1.4 103/ul Normal 1.2-3.[address] [facility] Comment on above: Performed By: #### C BC ####[facility] Qtzpupxkgt3579 [place] [address]Dr. Nahed Yañez Lymphocytes/100 WBC (Bld) 10.4 % Critically low 20.5-60.0 [facility] Comment on above: Performed By: #### C BC ####[facility] Upxfuyqbgl509[address] [place], [place] [address]Dr. Nahed Yañez MANUAL DIFF REQ NO Normal [facility] Comment on above: Performed By: #### C BC ####[facility] Xhegelhitx7228 [place] [address]Dr. Nahed Yañez MCH (RBC) [Entitic mass] 28.1 pg Normal 26.7-34.[address] [facility] Comment on above: Performed By: #### C BC ####[facility] Oxhwotcsxx835[address] [place], [place] [address]Dr. Nahed Yañez MCHC (RBC) [Mass/Vol] 31.8 g/dL Normal 29.9-35.[address] [facility] Comment on above: Performed By: #### C BC ####[facility] Ulmuagtlno[address] [place], [place] [address]Dr. Nahed Yañez MCV (RBC) [Entitic vol] 88.4 fL Normal 81.0-99.[address] [facility] Comment on above: Performed By: #### C BC ####[facility] Ikqdigehyh6009[address] [place], [place] [address]Dr. Nahed Yañez MONO # 0.8 103/ul Normal 0.3-0.[address] [facility] Comment on above: Performed By: #### C BC ####[facility] Rvadxjznku637[address] [place], [place] [address]Dr. Nahed Yañez Monocytes/100 WBC (Bld) 6.0 % Normal 1.7-12.[address] [facility] Comment on above: Performed By: #### C BC ####[facility] Pkycocdlqi686[address] [place], [place] [address]Dr. Nahed Yañez NEUT # 10.9 103/ul Critically high 1.4-6.5 [facility] Comment on above: Performed By: #### C BC ####[facility] Rzzqwkjfsb0728 [place] [address]Dr. Nahed Yañez Neutrophils/100 WBC (Bld) 83.0 % Critically high 43.0-75.0 [facility] Comment on above: Performed By: #### C BC ####[facility] Bgjdairswa8565 [place] [address]Dr. Nahed Yañez Platelet mean volume (Bld) [Entitic vol] 10.8 fL Normal 9.5-13.5 [facility] Comment on above: Performed By: #### C BC ####[facility] Qhihqgtwrc5[address] [place], [place] [address]Dr. Nahed Yañez PLT 402 103/ul Normal 150-450 [facility] Comment on above: Performed By: #### C BC ####[facility] Iyfothnrzr268[address] [place], [place] [address]Dr. Nahed Yañez RBC 5.02 106/ul Normal 4.20-5.40 [facility] Comment on above: Performed By: #### C BC ####[facility] Enqgdltkne4834[address] [place], [place] [address]Dr. Nahed Yañez WBC 13.1 103/ul Critically high 4.0-11.0 [facility] Comment on above: Performed By: #### C BC ####[facility] Qtrbabqgfp3069[address] [place], [place] [address]Dr. Nahed Otilio CTA CHEST WO W CONon 022 CTA CHEST WO W CON Normal [facility] CULTURE BLOODon 10-31-2021 Microscopic examination of blood, culture Culture Observations: NO GROWTH AT 5 DAYS[address] Normal [facility] Comment on above: Performed By: #### B LDCX2 ####[facility] Lzgfnqdwqa8215 [place] [address]Dr. Nahed Otilio Microscopic examination of blood, culture Culture Observations: NO GROWTH AT 5 DA[address]. Normal [facility] Comment on above: Performed By: #### B LDCX1 ####[facility] Jvwdnqsyxl2211 [place] [address]Dr. Nahed Yañez Covid-19 PCR (CVDTB)on 10-13 SARS-CoV-2 (COVID-19) RNA MIRNA+probe Ql (Unsp spec) Not detected Normal NOT DETECTED [facility] Comment on above: Result Comment: When [...] for this test is supported by the [place] [employer] and [employer] Service's declaration that [...] be used). Performed By: #### C VDTB ####[facility] Dorskcrcdk400[address] [place], [place] [address]Dr. Nahed Yañez ECHO LIMITED STUDYon 022 ECHO LIMITED STUDY Normal [facility] ER URINE PROFILEon 2 Bilirubin Ql (U) SMALL Abnormal NEGATIVE [facility] Comment on above: Performed By: #### YARELIS DOVE ####[facility] Gamdbwjoql5382 [place] [address]Dr. Nahed Yañez Clarity (U) CLEAR Normal CLEAR [facility] Comment on above: Performed By: #### YARELIS DOVE ####[facility] Htmbpgbvwl037[address] [place], [place] [address]Dr. Nahed Yañez Color (U) YELLOW Normal YELLOW [facility] Comment on above: Performed By: #### YARELIS DOVE ####[facility] Siqnolttow[address] [place], [place] [id number]. Nahed BORREGO A micrscopic examination will be performed if indicated. Normal [facility] Comment on above: Performed By: #### NUNU DOVERO ####[facility] Ibvkkseval2401 [place] [address]Dr. Nahed Yañez Glucose Ql (U) Negative Normal NEGATIVE [facility] Comment on above: Performed By: #### MYLA DOVEICRO ####[facility] Czinjgdvpu5202 [place] [address]Dr. Nahed Yañez Hemoglobin Ql (U) TRACE-INTACT Abnormal NEGATIVE [facility] Comment on above: Performed By: #### NUNU DOVERO ####[facility] Biotjqlsnq2120[address] [place], [place] [address]Dr. Nahed Yañez Ketones Ql (U) 15 mg/dl Abnormal NEGATIVE [facility] Comment on above: Performed By: #### NUNU DOVERO ####[facility] Fcugstvkzk607[address] [place], [place] [address]Dr. Nahed Yañez LEUKOCYTES TRACE Abnormal NEGATIVE [facility] Comment on above: Performed By: #### NUNU DOVERO ####[facility] Hqonkujstx694[address] [place], [place] [address]Dr. Nahed Yañez Nitrite Ql (U) Negative Normal NEGATIVE [facility] Comment on above: Performed By: #### MYLA DOVEICRO ####[facility] Zhmvzukqzu6889 [place] [address]Dr. Nahed Yañez pH (U) 6.5 [pH] Normal 5-9 [facility] Comment on above: Performed By: #### NUNU DOVERO ####[facility] Rirzifojvt9197[address] [place], [place] [address]Dr. Nahed Yañez Protein (U) [Mass/Vol] 30 mg/dL Abnormal NEGAT JOSEPHINE/ TRACE [facility] Comment on above: Performed By: #### MYLA DOVEICRO ####[facility] Kmmrvkhtno[address] [place], [place] [address]Dr. Nahed Yañez SPEC GRAVITY 1.025 Normal 1.005-<=1.[address] [facility] Comment on above: Performed By: #### YARELIS DOVE ####[facility] Zgxdhaqkuy3825[address] [place], [place] [address]Dr. Nahed Yañez UR MICRO IND INDICATED Normal [facility] Comment on above: Performed By: #### YARELIS DOVE ####[facility] Yfttivtrky3[address] [place], [place] [address]Dr. Nahed Yañez Urobilinogen Qn (U) 0.2 {Alem'U}/dL Normal 0.2 - 1. 0 [facility] Comment on above: Performed By: #### YARELIS DOVE ####[facility] Gabxdsjdmc5937[address] [place], [place] [address]Dr. Nahed Yañez INFLUENZA A AND B AGon 10-31 INFLUANEGH SEE BELOW Normal [facility] Comment on above: Result Comment: Nega tive for Flu A protein angiten. Infection due to Flu A cannot be ruled out. Flu A angiten in the sample may be below the detection limit of the test. Performed By: #### I NFLUAB ####[facility] Wljzsaatlf2430[address] [place], [place] [address]Dr. Nahed Yañez INFLUBNEGH SEE BELOW Normal [facility] Comment on above: Result Comment: Nega tive for Flu B protein antigen. Infection due to Flu B cannot be ruled out. Flu B antigen in the sample may be below the detection limit of the test. Performed By: #### I NFLUAB ####[facility] Uevrcfppmt1524[address] [place], [place] [address]Dr. Nahed Yañez INFLUENZA A AG Negative Normal NEGATIVE SEE COMMENT [facility] Comment on above: Performed By: #### I NFLUAB ####[facility] Fxbtipqcco2560[address] [place], [place] [address]Dr. Nahed Yañez INFLUENZA B AG Negative Normal NEGATIVE SEE COMMENT [facility] Comment on above: Performed By: #### I NFLUAB ####[facility] Kzfrsznukz538[address] [place], [place] [address]Dr. Nahed Yañez INTERNAL CONTROLS Within Normal Limits Normal Wi thin Normal Limits [facility] Comment on above: Performed By: #### I NFLUAB ####[facility] Vysdnofmcd7893 [place] [address]Dr. Nahed Yañez LACTATE/LACTIC ACIDon 2021 Lactate [Moles/Vol] 1.3 mmol/L Normal 0.4-1.9 [facility] Comment on above: Performed By: #### L ACT ####[facility] Yawkgvgrbe723[address] [place], [place] [address]Dr. Nahed Yañez PROF 14(COMP METB)on 022 Albumin [Mass/Vol] 4.3 g/dL Normal 3.4-5.0 [facility] Comment on above: Performed By: #### C MP ####[facility] Qgeizgdfxk5566 [place] [address]Dr. Nahed Yañez Albumin/Globulin [Mass ratio] 1.2 {ratio} Normal [facility] Comment on above: Performed By: #### C MP ####[facility] Rwnqfoyqtt8365[address] [place], [place] [address]Dr. Nahed Yañez ALP [Catalytic activity/Vol] 77 U/L Normal 46-116 [facility] Comment on above: Performed By: #### C MP ####[facility] Prtxpqzekk657[address] [place], [place] [address]Dr. Nahed Yañez ALT [Catalytic activity/Vol] 25 U/L Normal 14-59 [facility] Comment on above: Performed By: #### C MP ####[facility] Iiiojbjhdu9160 [place] [address]Dr. Nahed Yañez Anion gap [Moles/Vol] 15.6 mmol/L Normal [facility] Comment on above: Performed By: #### C MP ####[facility] Yvxjkmspya7307[address] [place], [place] [address]Dr. Nahed Yañez AST [Catalytic activity/Vol] 26 U/L Normal 15-37 [facility] Comment on above: Performed By: #### C MP ####[facility] Dqjapndkar3225[address] [place], [place] [address]Dr. Nahed Yañez Bilirubin [Mass/Vol] 0.6 mg/dL Normal 0.2-1.0 [facility] Comment on above: Performed By: #### C MP ####[facility] Tvkdqmdulf3952 [place] [address]Dr. Nahed Yañez Calcium [Mass/Vol] 10.0 mg/dL Normal 8.5-10.1 [facility] Comment on above: Performed By: #### C MP ####[facility] Xbltxxoavc9024 [place] [address]Dr. Nahed Yañez Chloride [Moles/Vol] 101 mmol/L Normal 98-107 [facility] Comment on above: Performed By: #### C MP ####[facility] Mqllazbead6614[address] [place], [place] [address]Dr. Nahed Yañez CO2 [Moles/Vol] 29.0 mmol/L Normal 21.0-32.0 [facility] Comment on above: Performed By: #### C MP ####[facility] Agnqxepugy017[address] [place], [place] [address]Dr. Nahed Yañez Creatinine [Mass/Vol] 0.89 mg/dL Normal 0.55-1.02 [facility] Comment on above: Performed By: #### C MP ####[facility] Yeubwyiqaz4864[address] [place], [place] [address]Dr. Nahed Yañez EGFR-AF OMANI >60 Normal >=60 [facility] Comment on above: Performed By: #### C MP ####[facility] Aygxisnjof9086 [place] [address]Dr. Nahed Otilio EGFR-NON AF OMANI >60 Normal >=60 [facility] Comment on above: Performed By: #### C MP ####[facility] Bealozkljo9057 [place] [address]Dr. Nahed Otilio Globulin (S) [Mass/Vol] 3.7 g/dL Normal [facility] Comment on above: Performed By: #### C MP ####[facility] Pecqlwawlh1964[address] [place], [place] [address]Dr. Rosemarieashley Otilio Glucose [Mass/Vol] 182 mg/dL Critically high 74-106 [facility] Comment on above: Performed By: #### C MP ####[facility] Xxclbuspyr1602 [place] [address]Dr. Nahed Yañez Potassium [Moles/Vol] 3.6 mmol/L Normal 3.5-5.1 [facility] Comment on above: Performed By: #### C MP ####[facility] Luojxyqxvq079[address] [place], [place] [address]Dr. Nahed Yañez Protein [Mass/Vol] 8.0 g/dL Normal 6.4-8.2 [facility] Comment on above: Performed By: #### C MP ####[facility] Lpbqkjlvgo643189 [address] [place], [place] [address]Dr. Nahed Yañez Sodium [Moles/Vol] 142 mmol/L Normal 136-145 [facility] Comment on above: Performed By: #### C MP ####[facility] Eqnpcswlqy454[address] [place], [place] [address]Dr. Nahed Yañez Urea nitrogen [Mass/Vol] 8.0 mg/dL Normal 7.0-18.0 [facility] Comment on above: Performed By: #### C MP ####[facility] Atclnxxryg3301[address] [place], [place] [address]Dr. Nahed Yañez Urea nitrogen/Creatinine [Mass ratio] 9.0 mg/mg Normal [facility] Comment on above: Performed By: #### C MP ####[facility] Hvkydbxxbp157[address] [place], [place] [address]Dr. Nahed Yañez T4on 10-31-2021 T4 [Mass/Vol] 8.10 ug/dL Normal 4.80-13.90 [facility] Comment on above: Performed By: #### T 4, TSH, BNP, CMADM ####[facility] Spzovdltov[address] [place], [place] [address]Dr. Nahed Yañez TSHon 10-31-2021 TSH 1.088 uIU/mL Normal 0.358-3.740 [facility] Comment on above: Performed By: #### T 4, TSH, BNP, CMADM ####[facility] Vgvenfuneo4701 [place] [address]Dr. Nahed Yañez URINE MICROSCOPIC ONLYon BACTERIA TRACE Abnormal NONE SEEN [facility] Comment on above: Performed By: #### YARELIS DOVE ####[facility] Ekjwmoeysc97[address] [place], [place] [address]Dr. Nahed Yañez Bacteria identified Cx Nom (U) NOT INDICATED Normal [facility] Comment on above: Performed By: #### NUNU DOVERO ####[facility] Svzoozbevt16[address] [place], [place] [address]Dr. Nahed Yañez CAST NONE SEEN Normal NONE SEEN [facility] Comment on above: Performed By: #### YARELIS DOVE ####[facility] Pyhhqisxtg309[address] [place], [place] [address]Dr. Nahed Yañez Crystals LM Nom (Urine sed) NONE SEEN Normal NONE SEEN [facility] Comment on above: Performed By: #### NUNU DOVERO ####[facility] Ojimkblunj68[address] [place], [place] [address]Dr. Nahed Yañez Epithelial cells LM Ql (Urine sed) MODERATE Abnormal NONE SEEN /RARE [facility] Comment on above: Performed By: #### NUNU DOVERO ####[facility] Igchaensir7000[address] [place], [place] [address]Dr. Nahed Yañez MUCOUS SMALL Abnormal NONE SEEN [facility] Comment on above: Performed By: #### NUNU DOVERO ####[facility] Xetpwjxckn53[address] [place], [place] [address]Dr. Nahed Yañez RBC 2-5 Abnormal 0-[address] [facility] Comment on above: Performed By: #### NUNU DOVERO ####[facility] Fziuzuuebz6904[address] [place], [place] [address]Dr. Nahed Yañez WBC 2-5 Abnormal NONE SEEN [facility] Comment on above: Performed By: #### NUNU DOVERO ####[facility] Cnsxpueavt594[address] [place], [place] [address]Dr. Nahed Yañez XR CHEST 2 Von 10-31-2021 XR CHEST 2 V [address] [facility] CULTURE URINEon 10-30-2021 CULTURE URINE Culture Observations : MODERATE GROWTH OF MIXED GENITAL MIGUEL. NO POTENTIAL PATHOGENS SEEN. Normal [facility] Comment on above: Performed By: #### U RCX ####[facility] Pqvhkdganb3496 [place] [id number]. Nahed Yañez US JESSEE DOP LEG BILon 022 US JESSEE DOP LEG MOHAN Normal [facility] CARDIAC FRANCISCO ADMITon 022 CK [Catalytic activity/Vol] 16 U/L Critically low 26-[address] [facility] Comment on above: Performed By: #### C RENZO, CMADM ####[facility] Ziuqvqgmdx9980 [place] [address]Dr. Nahed Yañez CK.MB [Mass/Vol] 0.56 ng/mL Normal <=3.60 [facility] Comment on above: Performed By: #### C RENZO, CMADM ####[facility] Mnyyktovma8986 [place] [address]Dr. Nahed Yañez HSTROP 44.3 pg/mL Normal 4.0-51.[address] [facility] Comment on above: Result Comment: CUT- OFF POINTS HAVE BEEN ESTABLISHED BASED ON THE FOURTH UNIVERSAL DEFINITIONS OF MYOCARDIALINFARCTION. THE UPPER REFERENCE LIMIT (URL) OF TROPONIN, DEFINED THE 99TH PERCENTILE OFcTnI DISTRIBUTION IN A REFERENCE POPULATION, HAS BEEN CONFIRMED THE DECISION THRESHOLDFOR [place] DIAGNOSIS. Performed By: #### C RENZO, CMADM ####[facility] Unhlxzefjv0696 [place] [address]Dr. Nahed Yañez ANDRE 42 ng/mL Normal 9-[address] [facility] Comment on above: Performed By: #### C RENZO, CMADM ####[facility] Vuaspjdqiq6732 [place] [id number]. Nahed Yañez CBC AUTO DIFFon 09-07-2021 BASO # 0.0 103/ul Normal 0.0-0.[address] [facility] Comment on above: Performed By: #### C BC ####[facility] Olhfswmbms4544 [place] [id number]. Nahed Yañez Basophils/100 WBC (Bld) 0.4 % Normal 0.2-2.0 [facility] Comment on above: Performed By: #### C BC ####[facility] Mnfyyfaofz2459 [place] [address]Dr. Nahed Yañez EO # 0.2 103/ul Normal 0.0-0.7 [facility] Comment on above: Performed By: #### C BC ####[facility] U[address]zsnmjvbi[address] [place], [place] [address]Dr. Nahed Yañez Eosinophils/100 WBC (Bld) 2.4 % Normal 0.9-7.0 [facility] Comment on above: Performed By: #### C BC ####[facility] Yqcghosfqt[address] [place], [place] [address]Dr. Nahed Yañez Erythrocyte distribution width (RBC) [Ratio] 15.1 % Critically high 11.0-15.0 [facility] Comment on above: Performed By: #### C BC ####[facility] Blanselzkr01[address] [place], [place] [address]DrShaun Yañez Hematocrit (Bld) [Volume fraction] 42.6 % Normal 36.0-48.0 [facility] Comment on above: Performed By: #### C BC ####[facility] Xditjnyrdk[address] [place], [place] [address]Dr. Nahed Yañez Hemoglobin (Bld) [Mass/Vol] 13.4 g/dL Normal 12.0-16.[address] [facility] Comment on above: Performed By: #### C BC ####[facility] Agfpqsoctr9[address] [place], [place] [address]DrShaun Yañez IG # 0.33 10e3/ul Critically high 0.00-0.03 [facility] Comment on above: Performed By: #### C BC ####[facility] Mbogstppvx23[address] [place], [place] [address]Dr. Nahed Yañez IG % 3.9 % Critically high 0.0-0.5 [facility] Comment on above: Performed By: #### C BC ####[facility] Jhugkytglr[address] [place], [place] [address]Dr. Nahed Yañez LYMPH # 2.6 103/ul Normal 1.2-3.[address] [facility] Comment on above: Performed By: #### C BC ####[facility] Wawzvhhsas6653 [place] [address]Dr. Nahed Yañez Lymphocytes/100 WBC (Bld) 30.3 % Normal 20.5-60.0 [facility] Comment on above: Performed By: #### C BC ####[facility] [address]qczhxip[address] [place], [place] [address]Dr. Nahed Yañez MANUAL DIFF REQ NO Normal [facility] Comment on above: Performed By: #### C BC ####[facility] Bfmrsnzkti[address] [place], [place] [address]Dr. Nahed Yañez MCH (RBC) [Entitic mass] 28.6 pg Normal 26.7-34.[address] [facility] Comment on above: Performed By: #### C BC ####[facility] Ctfsgcsxpk[address] [place], [place] [address]Dr. Nahed Yañez MCHC (RBC) [Mass/Vol] 31.5 g/dL Normal 29.9-35.[address] [facility] Comment on above: Performed By: #### C BC ####[facility] Feakxputzi[address] [place], [place] [address]Dr. Nahed Yañez MCV (RBC) [Entitic vol] 90.8 fL Normal 81.0-99.[address] [facility] Comment on above: Performed By: #### C BC ####[facility] Z[address]czigqcmf[address] [place], [place] [address]Dr. Nahed Yañez MONO # 0.7 103/ul Normal 0.3-0.[address] [facility] Comment on above: Performed By: #### C BC ####[facility] Uhewqoufoa[address] [place], [place] [address]Dr. Nahed Yañez Monocytes/100 WBC (Bld) 8.0 % Normal 1.7-12.[address] [facility] Comment on above: Performed By: #### C BC ####[facility] Pnrfdbxqot[address] [place], [place] [address]Dr. Nahed Yañez NEUT # 4.7 103/ul Normal 1.4-6.5 [facility] Comment on above: Performed By: #### C BC ####[facility] Kyoohnusiq8733 [place] [address]DrShaun Yañez Neutrophils/100 WBC (Bld) 55.0 % Normal 43.0-75.0 [facility] Comment on above: Performed By: #### C BC ####[facility] Njypsedhah0648 [place] [address]DrShaun Yañez Platelet mean volume (Bld) [Entitic vol] 8.9 fL Critically low 9.5-13.5 [facility] Comment on above: Performed By: #### C BC ####[facility] Ehjpsdejed[address] [place], [place] [address]DrShaun Yañez PLT 270 103/ul Normal 150-450 [facility] Comment on above: Performed By: #### C BC ####[facility] Lliujdggek[address] [place], [place] [address]DrShaun Yañez RBC 4.69 106/ul Normal 4.20-5.40 [facility] Comment on above: Performed By: #### C BC ####[facility] Qbiucyagva[address] [place], [place] [address]DrShaun Yañez WBC 8.5 103/ul Normal 4.0-11.0 [facility] Comment on above: Performed By: #### C BC ####[facility] Qoonpiqfji[address] [place], [place] [address]DrShaun Yañez PROF 14(COMP METB)on 022 Albumin [Mass/Vol] 2.7 g/dL Critically low 3.4-5.0 [facility] Comment on above: Performed By: #### ERICK Whyte MP ####[facility] Ugbpoygvim754[address] [place], [place] [address]DrShaun Yañez Albumin/Globulin [Mass ratio] 0.8 {ratio} Normal [facility] Comment on above: Performed By: #### C ERICK MULLER ####[facility] Ftigclewos[address] [place], [place] [address]DrShaun Yañez ALP [Catalytic activity/Vol] 65 U/L Normal 46-[address] [facility] Comment on above: Performed By: #### C RENZO, ERICK ####[facility] [address]ukktcbyuw7530 [place] [address]Dr. Nahed Yañez ALT [Catalytic activity/Vol] 27 U/L Normal 14-59 [facility] Comment on above: Performed By: #### C RENZO, ERICK ####[facility] Dsxrmgoujp6452 [place] [address]Dr. Nahed Yañez Anion gap [Moles/Vol] 10.3 mmol/L Normal [facility] Comment on above: Performed By: #### C RENZO, ERICK ####[facility] Aaududipls0458 [place] [address]Dr. Nahed Yañez AST [Catalytic activity/Vol] 11 U/L Critically low 15-37 [facility] Comment on above: Performed By: #### C RENZO, ERICK ####[facility] Dzuocopkjq[address] [place], [place] [address]Dr. Nahed Yañez Bilirubin [Mass/Vol] 0.3 mg/dL Normal 0.2-1.0 [facility] Comment on above: Performed By: #### C RENZO, ERICK ####[facility] Ebkeltrywk1896 [place] [address]Dr. Nahed Yañez Calcium [Mass/Vol] 8.1 mg/dL Critically low 8.5-10.1 [facility] Comment on above: Performed By: #### C RENZO, ERICK ####[facility] Tlmxidasem5121 [place] [address]Dr. Nahed Yañez Chloride [Moles/Vol] 98 mmol/L Normal 98-107 [facility] Comment on above: Performed By: #### C RENZO, ERICK ####[facility] Speratcgxt1845 [place] [address]Dr. Nahed Yañez CO2 [Moles/Vol] 32.5 mmol/L Critically high 21.0-32.0 [facility] Comment on above: Performed By: #### C RENZO, ERICK ####[facility] Czxcsggxqg6559 [place] [id number]. Nahed Yañez Creatinine [Mass/Vol] 0.94 mg/dL Normal 0.55-1.02 [facility] Comment on above: Performed By: #### C RENZO, CMADM ####[facility] Pirtpxwcnz3953 [place] [id number]. Nahed Yañez EGFR-AF OMANI >60 Normal >=60 [facility] Comment on above: Performed By: #### C RENZO, CMADM ####[facility] Ciggczpuzb2552 [place] [id number]. Nahed Yañez EGFR-NON AF OMANI >60 Normal >=60 [facility] Comment on above: Performed By: #### C RENZO, CMAJOSE ####[facility] Gcitkcnmxr7217 [place] [address]Dr. Nahed Yañez Globulin (S) [Mass/Vol] 3.2 g/dL Normal [facility] Comment on above: Performed By: #### C RENZO, CMADM ####[facility] Ddtkudyfxj9431 [place] [address]Dr. Nahed Yañez Glucose [Mass/Vol] 123 mg/dL Critically high 74-106 [facility] Comment on above: Performed By: #### C RENZO, CMADM ####[facility] Wexpxnqdmb0242 [place] [phone]. Nahed Yañez Potassium [Moles/Vol] 3.8 mmol/L Normal 3.5-5.1 [facility] Comment on above: Performed By: #### C RENZO, CMADM ####[facility] Zfcnthvnrw8831 [place] [phone]. Nahed Yañez Protein [Mass/Vol] 5.9 g/dL Critically low 6.1-8.2 [facility] Comment on above: Performed By: #### C RENZO, CMADM ####[facility] Dkpfstbmrc0734 [place] [phone]. Nahed Yañez Sodium [Moles/Vol] 137 mmol/L Normal 136-145 [facility] Comment on above: Performed By: #### C RENZO, CMADM ####[facility] Ephiyzjxha4613 [place] [address]Dr. Nahed Yañez Urea nitrogen [Mass/Vol] 20.0 mg/dL Critically high 7.0-18.[address] [facility] Comment on above: Performed By: #### C MP, CMADM ####[facility] Zsyakgczzb[address] [place], [place] [address]Dr. Nahed Yañez Urea nitrogen/Creatinine [Mass ratio] 21.3 mg/mg Normal [facility] Comment on above: Performed By: #### C MP, CMADM ####[facility] Fenvzaxige79[address] [place], [place] [address]Dr. Nahed Yañez BNPon 09-06-2021 Natriuretic peptide B (Bld) [Mass/Vol] 923.0 pg/mL Critically high <=900.[address] [facility] Comment on above: Performed By: #### B MP, BNP, HSTROPN ####[facility] Wtxfaymyzq78[address] [place], [place] [address]Dr. Nahed Yañez CBC AUTO DIFFon 09-06-2021 BASO # 0.1 103/ul Normal 0.0-0.[address] [facility] Comment on above: Performed By: #### C BC ####[facility] Pufhkwufdl[address] [place], [place] [address]Dr. Rosemarieashley Yañez Basophils/100 WBC (Bld) 0.6 % Normal 0.2-2.[address] [facility] Comment on above: Performed By: #### C BC ####[facility] Nrpenhxrgu[address] [place], [place] [address]Dr. Nahed Otilio EO # 0.3 103/ul Normal 0.0-0.[address] [facility] Comment on above: Performed By: #### C BC ####[facility] Ajtydllumj356[address] [place], [place] [address]Dr. Nahed Otilio Eosinophils/100 WBC (Bld) 3.0 % Normal 0.9-7.[address] [facility] Comment on above: Performed By: #### C BC ####[facility] Azappwdqji3318[address] [place], [place] [address]Dr. Nahed Yañez Erythrocyte distribution width (RBC) [Ratio] 15.0 % Normal 11.0-15.[address] [facility] Comment on above: Performed By: #### C BC ####[facility] Cpjqceuexn3072 [place] [address]Dr. Nahed Yañez Hematocrit (Bld) [Volume fraction] 48.1 % Critically high 36.0-48.[address] [facility] Comment on above: Performed By: #### C BC ####[facility] Ivinhcufae6[address] [place], [place] [address]Dr. Nahed Yañez Hemoglobin (Bld) [Mass/Vol] 15.5 g/dL Normal 12.0-16.[address] [facility] Comment on above: Result Comment: delt a check called to Manisha WALKER Performed By: #### C BC ####[facility] Tthevitqqb224[address] [place], [place] [address]Dr. Nahed Yañez IG # 0.46 10e3/ul Critically high 0.00-0.03 [facility] Comment on above: Performed By: #### C BC ####[facility] Dxpzjcnfbo14[address] [place], [place] [address]Dr. Nahed Yañez IG % 4.2 % Critically high 0.0-0.5 [facility] Comment on above: Performed By: #### C BC ####[facility] Hvizznrkdk[address] [place], [place] [address]Dr. Nahed Yañez LYMPH # 2.2 103/ul Normal 1.2-3.[address] [facility] Comment on above: Performed By: #### C BC ####[facility] Rmxrzazdtj7460[address] [place], [place] [address]Dr. Nahed Yañez Lymphocytes/100 WBC (Bld) 20.6 % Normal 20.5-60.[address] [facility] Comment on above: Performed By: #### C BC ####[facility] Eujtvqbzxu[address] [place], [place] [address]Dr. Nahed Yañez MANUAL DIFF REQ NO Normal [facility] Comment on above: Performed By: #### C BC ####[facility] Vxkfwvgtnd9534 [place] [phone]. Nahed Yañez MCH (RBC) [Entitic mass] 28.2 pg Normal 26.7-34.[address] [facility] Comment on above: Performed By: #### C BC ####[facility] Jkzyxfcqqc0862 [place] [address]Dr. Nahed Yañez MCHC (RBC) [Mass/Vol] 32.2 g/dL Normal 29.9-35.[address] [facility] Comment on above: Performed By: #### C BC ####[facility] Daobjodqax[address] [place], [place] [address]Dr. Nahed Yañez MCV (RBC) [Entitic vol] 87.5 fL Normal 81.0-99.[address] [facility] Comment on above: Performed By: #### C BC ####[facility] Onmwxqrtyg9440[address] [place], [place] [address]Dr. Nahed Yañez MONO # 0.7 103/ul Normal 0.3-0.[address] [facility] Comment on above: Performed By: #### C BC ####[facility] Nayivtesqq[address] [place], [place] [address]Dr. Nahed Otilio Monocytes/100 WBC (Bld) 6.4 % Normal 1.7-12.[address] [facility] Comment on above: Performed By: #### C BC ####[facility] T[address]jp[address]ze[address] [place], [place] [address]Dr. Nahed Yañez NEUT # 7.1 103/ul Critically high 1.4-6.5 [facility] Comment on above: Performed By: #### C BC ####[facility] Zhiqvpypts3[address] [place], [place] [address]Dr. Nahed Otilio Neutrophils/100 WBC (Bld) 65.2 % Normal 43.0-75.[address] [facility] Comment on above: Performed By: #### C BC ####[facility] Ymxgpbkpsn00[address] [place], [place] [address]Dr. Nahed Yañez Platelet mean volume (Bld) [Entitic vol] 8.9 fL Critically low 9.5-13.[address] [facility] Comment on above: Performed By: #### C BC ####[facility] Bbhcsnhatx8875 [place], [place] [address]Qc. Nahed Yañez PLT 390 103/ul Normal 150-[address] [facility] Comment on above: Performed By: #### C BC ####[facility] Elujxkautw9070 [place], [place] [address]Ve. Nahed Yañez RBC 5.50 106/ul Critically high 4.20-5.40 [facility] Comment on above: Performed By: #### C BC ####[facility] Ursxfrkvlk2379 [place] [id number]. Nahed Yañez WBC 10.8 103/ul Normal 4.0-11.[address] [facility] Comment on above: Performed By: #### C BC ####[facility] Rlrtczlghm3257 [place] [id number]. Nahed Yañez CULTURE BLOODon 09-06-2021 Microscopic examination of blood, culture Culture Observations: NO GROWTH AT 5 DAYS. Isolate 1 BC_BA_NA Normal [facility] Comment on above: Performed By: #### B LDCX2 ####[facility] Hhtmsstjzd5336 [place] [phone]. Nahed Yañez Microscopic examination of blood, culture Culture Observations: NO GROWTH AT [address] [facility] Comment on above: Performed By: #### B LDCX1 ####[facility] Ewenevqnek0245 [place] [phone]. Nahed Yañez Covid-19 PCR (CVDTB)on 08-13 SARS-CoV-2 (COVID-19) RNA MIRNA+probe Ql (Unsp spec) Not detected Normal NOT DETECTED [facility] Comment on above: Result Comment: When [...] for this test is supported by the [place] [employer] and Human Service's declaration that [...] be used). Performed By: #### C VDTBH ####[facility] Ipitixmrpt26[address] [place], [place] [address]Dr. Nahed Yañez LACTATE/LACTIC ACIDon 2021 Lactate [Moles/Vol] 0.1 mmol/L Critically low 0.4-2.0 [facility] Comment on above: Performed By: #### L ACT ####[facility] Aduwycmzhv[address] [place], [place] [address]Dr. Nahed Yañez Lactate [Moles/Vol] 1.5 mmol/L Normal 0.4-2.0 [facility] Comment on above: Performed By: #### L ACT ####[facility] Inhzgmpclb16[address] [place], [place] [address]Dr. Nahed Yañez POINT OF CARE GLUCOSEon 08-13 Glucose [Mass/Vol] 201 mg/dL Critically high 74-106 [facility] Comment on above: Performed By: #### P OCGLUC ####[facility] Ujkhtoukkj[address] [place], [place] [address]Dr. Nahed Yañez PROF CHEM 8 (BAS METB)on Anion gap [Moles/Vol] 14.8 mmol/L Normal [facility] Comment on above: Performed By: #### B MP, BNP, HSTROPN ####[facility] Nxkemtujqj9[address] [place], [place] [address]Dr. Nahed Yañez Calcium [Mass/Vol] 8.8 mg/dL Normal 8.5-10.1 [facility] Comment on above: Performed By: #### B MP, BNP, HSTROPN ####[facility] Rwvgsladrh90[address] [place], [place] [address]Dr. Nahed Yañez Chloride [Moles/Vol] 95 mmol/L Critically low 98-107 [facility] Comment on above: Performed By: #### B MP, BNP, HSTROPN ####[facility] Cvslxbqmkr0922 [place] [address]Dr. Nahed Yañez CO2 [Moles/Vol] 28.7 mmol/L Normal 21.0-32.0 [facility] Comment on above: Performed By: #### B MP, BNP, HSTROPN ####[facility] Jsdfxjyedn6002 [place] [address]Dr. Nahed Yañez Creatinine [Mass/Vol] 0.98 mg/dL Normal 0.55-1.02 [facility] Comment on above: Performed By: #### B MP, BNP, HSTROPN ####[facility] Br[address]qnbldfk[address] [place], [place] [address]Dr. Nahed Yañez EGFR-AF OMANI >60 Normal >=60 [facility] Comment on above: Performed By: #### B MP, BNP, HSTROPN ####[facility] Pxbiarhgvv[address] [place], [place] [address]Dr. Nahed Yañez EGFR-NON AF OMANI 58 mL/min/1.73m2 Critically low >=60 [facility] Comment on above: Performed By: #### B MP, BNP, HSTROPN ####[facility] Oaiwlshddp3045 [place] [address]Dr. Nahed Yañez Glucose [Mass/Vol] 150 mg/dL Critically high 74-106 [facility] Comment on above: Performed By: #### B MP, BNP, HSTROPN ####[facility] Leidjhynlj1447 [place] [address]Dr. Rosemarieashley Yañez Potassium [Moles/Vol] 4.5 mmol/L Normal 3.5-5.1 [facility] Comment on above: Performed By: #### B MP, BNP, HSTROPN ####[facility] Qcekgkmvav6016 [place] [address]Dr. Nahed Yañez Sodium [Moles/Vol] 134 mmol/L Critically low 136-145 [facility] Comment on above: Performed By: #### B MP, BNP, HSTROPN ####[facility] Guquwycruj8775 [place] [id number]. Nahed Yañez Urea nitrogen [Mass/Vol] 19.0 mg/dL Critically high 7.0-18.0 [facility] Comment on above: Performed By: #### B MP, BNP, HSTROPN ####[facility] Tbeluntcqe1223 [place] [address]Dr. Nahed Yañez Urea nitrogen/Creatinine [Mass ratio] 19.4 mg/mg Normal [facility] Comment on above: Performed By: #### B MP, BNP, HSTROPN ####[facility] Gapjucuoqx[address] [place] [address]Dr. Nahed Yañez TROPONIN, HIGH SENSITIVITYon 09-06-2021 HSTROP 50.4 pg/mL Normal 4.0-51.3 [facility] Comment on above: Result Comment: CUT- OFF POINTS HAVE BEEN ESTABLISHED BASED ON THE FOURTH UNIVERSAL DEFINITIONS OF MYOCARDIALINFARCTION. THE UPPER REFERENCE LIMIT (URL) OF TROPONIN, DEFINED THE 99TH PERCENTILE OFcTnI DISTRIBUTION IN A REFERENCE POPULATION, HAS BEEN CONFIRMED THE DECISION THRESHOLDFOR [place] DIAGNOSIS. Performed By: #### B MP, BNP, HSTROPN ####[facility] Bdgzganmwb8861 [place] [address]Dr. Nahed Yañez XR CHEST 1 Von 09-06-2021 XR CHEST 1 V [address] [facility] CBC with Diffon 09-08-2018 Abs. Basophil 0.03 k/uL Normal 0.00-0.20 [facility] Comment on above: Performed By: #### L IP, CMPX, CDP #### [facility] [address] [place] [address] Three Dimensional Map Modeler: Nino Farias MD Abs.Imm.Granulocyte 0.05 k/uL Normal 0.00-0.30 [facility] Comment on above: Performed By: #### L IP, CMPX, CDP #### [facility] [address] [place] [address] Three Dimensional Map Modeler: Nino Farias MD Abs.Neutrophil (Seg) 11.30 k/uL High 1.50-8.10 [facility] Comment on above: Performed By: #### L IP, CMPX, CDP #### [facility] [address] [place], [place] [address] Three Dimensional [employer] Modeler: Nino Farias MD Basophils/100 WBC (Bld) 0 % Normal 0-2 [facility] Comment on above: Performed By: #### L IP, CMPX, CDP #### [facility] [address] [place], [place] [address] Three Dimensional [employer] Modeler: Nino Farias MD Eosinophils #/vol (Bld) 0.17 10*3/uL Normal 0.00-0.44 [facility] Comment on above: Performed By: #### L IP, CMPX, CDP #### [address] [place], [facility]83 Three Dimensional Map Modeler: Nino Farias MD Eosinophils/100 WBC (Bld) 1 % Normal 1-4 [facility] Comment on above: Performed By: #### L IP, CMPX, CDP #### [address] [place], [facility]83 Three Dimensional [employer] Modeler: Nino Farias MD Erythrocyte distribution width Ratio (RBC) 12.5 % Normal 11.8-14.4 [facility] Comment on above: Performed By: #### L IP, CMPX, CDP #### [address] [place], [place] [address] Three Dimensional Map Modeler: Nino Farias MD Hematocrit Volume Fraction (Bld) 36.8 % Normal 36.3-47.1 [facility] Comment on above: Performed By: #### L IP, CMPX, CDP #### [address] [place], [place] [address] Three Dimensional Map Modeler: Nino Farias MD Hemoglobin mass conc (Bld) 11.6 g/dL Low 11.9-15.1 [facility] Comment on above: Performed By: #### L IP, CMPX, CDP #### [facility] [address] [place] [address] Dr[place], [facility]83 Three Dimensional Map Modeler: Nino Farias MD Immature granulocytes #/vol (Bld) 0 % Normal 0 [facility] Comment on above: Performed By: #### L IP, CMPX, CDP #### [facility] [address] [place], [place] [address] Three Dimensional Map Modeler: Nino Farias MD Lymphocytes #/vol (Bld) 2.56 10*3/uL Normal 1.10-3.70 [facility] Comment on above: Performed By: #### L IP, CMPX, CDP #### [address] [place] [address] Three Dimensional Map Modeler: Nino Farias MD Lymphocytes/100 WBC (Bld) 18 % Low 24-43 [facility] Comment on above: Performed By: #### L IP, CMPX, CDP #### [address] [place], [place] [address] Three Dimensional Map Modeler: iNno Farias MD MCH Entitic mass (RBC) 30.6 pg Normal 25.2-33.5 [facility] Comment on above: Performed By: #### L IP, CMPX, CDP #### [address] [place], [facility]83 Three Dimensional Map Modeler: Nino Farias MD MCHC mass conc (RBC) 31.5 g/dL Normal 28.4-34.8 [facility] Comment on above: Performed By: #### L IP, CMPX, CDP #### [address] [place], [facility]83 Three Dimensional Map Modeler: Nino Farias MD MCV Entitic volume (RBC) 97.1 fL Normal 82.6-102.9 [facility] Comment on above: Performed By: #### L IP, CMPX, CDP #### [facility] [address] [place], [place] [address] Three Dimensional Map Modeler: Nino Farias MD Monocytes #/vol (Bld) 0.55 10*3/uL Normal 0.10-1.20 [facility] Comment on above: Performed By: #### L IP, CMPX, CDP #### [facility] [address] [place], [place] [address] Three Dimensional Map Modeler: Nino Farias MD Monocytes/100 WBC (Bld) 4 % Normal 3-12 [facility] Comment on above: Performed By: #### L IP, CMPX, CDP #### [address] [place], [facility]83 Three Dimensional Map Modeler: Nino Farias MD Neutrophil (Seg) 77 % High 36-65 [facility] Comment on above: Performed By: #### L IP, CMPX, CDP #### [address] [place], [facility]83 Three Dimensional Map Modeler: Nino Farias MD NRBC Automated 0.0 per 100 WBC Normal 0.0 [facility] Comment on above: Performed By: #### L IP, CMPX, CDP #### [address] [place], [place] [address]57383 Three Dimensional Map Modeler: Nino Farias MD Platelet mean volume Entitic volume (Bld) 9.2 fL Normal 8.1-13.5 [facility] Comment on above: Performed By: #### L IP, CMPX, CDP #### [address] [place], [place] [address]83 Three Dimensional Map Modeler: Nino Farias MD Platelets #/vol (Bld) 305 10*3/uL Normal 138-453 [facility] Comment on above: Performed By: #### L IP, CMPX, CDP #### [facility] [address] [place] [address] Three Dimensional Map Modeler: Nino Farias MD RBC #/vol (Bld) 3.79 10*6/uL Low 3.95-5.11 [facility] Comment on above: Performed By: #### L IP, CMPX, CDP #### [facility] [address] [place], [place] [address] Three Dimensional Map Modeler: Nino Farias MD WBC #/vol (Bld) 14.7 10*3/uL High 3.5-11.3 [facility] Comment on above: Performed By: #### L IP, CMPX, CDP #### [address] [place], [place] [address]83 Three Dimensional Map Modeler: Nino Farias MD Auto Diff Performed NOT REPORTED Normal [facility] Comment on above: Performed By: #### L IP, CMPX, CDP #### [facility] [address] [place] [address] Dr[place], [place] 130[address]283 Three Dimensional Map Modeler: Nino Farias MD Platelets #/vol (Bld) NOT REPORTED Normal [facility] Comment on above: Performed By: #### L IP, CMPX, CDP #### [address] [place], [place] [address] Three Dimensional Map Modeler: Nino Farias MD RBC morphology finding Nom (Bld) NOT REPORTED Normal [facility] Comment on above: Performed By: #### L IP, CMPX, CDP #### [facility] [address] [place] [address] Dr[place], [place] 6684[address] Three Dimensional Map Modeler: Nino Farias MD WBC Morphology NOT REPORTED Normal [facility] Comment on above: Performed By: #### L IP, CMPX, CDP #### [facility] [address] [place], [place] 123[address]83 Three Dimensional Map Modeler: Nino Farias MD Comp Metabolic Pr/rfx MGon 0 09-08-2018 ALT enzyme act/vol U/L Low 5-33 [facility] Comment on above: Performed By: #### L IP, CMPX, CDP #### [facility] [address] [place] [address] Three Dimensional Map Modeler: Nino Farias MD (cont.) [facility] Comment on above: Result Comment: Aver age GFR for 50-59 years old: 93 mL/min/1.73sq m Chronic Kidney Disease: <60 mL/min/1.73sq m Kidney failure: <15 mL/min/1.73sq m eGFR calculated using average adult body mass. Additional eGFR calculator available at: http://www.iMedia.fm/multiple_crcl_2011.htm Performed By: #### L IP, CMPX, CDP #### [facility] [address] [place] [address] Three Dimensional Map Modeler: Nino Farias MD Albumin mass conc 4.0 g/dL Normal 3.5-5.2 [facility] Comment on above: Performed By: #### L IP, CMPX, CDP #### [facility] [address] [place] [address] Three Dimensional Map Modeler: Nino Farias MD Albumin/Globulin mass ratio 1.3 {ratio} Normal 1.0-2.5 [facility] Comment on above: Performed By: #### L IP, CMPX, CDP #### [facility] [address] [place] [address] Three Dimensional Map Modeler: Nino Farias MD Alkaline Phos 58 U/L Normal 35-104 [facility] Comment on above: Performed By: #### L IP, CMPX, CDP #### [facility] [address] [place] [address] Three Dimensional Map Modeler: Nino Farias MD Anion gap molar conc 8 mmol/L Low 9-17 [facility] Comment on above: Performed By: #### L IP, CMPX, CDP #### [facility] [address] [place] [address] Three Dimensional Map Modeler: Nino Farias MD AST enzyme act/vol 20 U/L Normal <32 [facility] Comment on above: Performed By: #### L IP, CMPX, CDP #### [facility] [address] [place] [address] Three Dimensional Map Modeler: Nino Farias MD Bilirubin Ql (U) 0.17 mg/dL Low 0.3-1.2 [facility] Comment on above: Performed By: #### L IP, CMPX, CDP #### [facility] [address] [place] [address] Three Dimensional Map Modeler: Nino Farias MD BUN/CRE Ratio 15 Normal 9-20 [facility] Comment on above: Performed By: #### L IP, CMPX, CDP #### [facility] [address] [place] [address] Three Dimensional Map Modeler: Nino Farias MD Calcium mass conc 9.3 mg/dL Normal 8.6-10.4 [facility] Comment on above: Performed By: #### L IP, CMPX, CDP #### [facility] [address] [place] [address] Three Dimensional Map Modeler: Nino Farias MD Chloride molar conc 97 mmol/L Low 98-107 [facility] Comment on above: Performed By: #### L IP, CMPX, CDP #### [facility] [address] [place] [address] Three Dimensional Map Modeler: Nino Farias MD CO2 molar conc 31 mmol/L Normal 20-31 [facility] Comment on above: Performed By: #### L IP, CMPX, CDP #### [facility] [address] [place] [address] Three Dimensional Map Modeler: Nino Farias MD Creatinine mass conc 1.22 mg/dL High 0.50-0.90 [facility] Comment on above: Performed By: #### L IP, CMPX, CDP #### [facility] [address] [place], [place] [id number] [employer] Dimensional [employer] Modeler: Nino Farias MD GFR, Amer 55 mL/min Low >60 [facility] Comment on above: Performed By: #### L IP, CMPX, CDP #### [facility] [address] [place], [place] [id number] Three Dimensional Map Modeler: Nino Farias MD GFR,non Amer 45 mL/min Low >60 [facility] Comment on above: Performed By: #### L IP, CMPX, CDP #### [facility] [address] [place] [address] Three Dimensional Map Modeler: Nino Farias MD Glucose mass conc 93 mg/dL Normal 70-99 [facility] Comment on above: Performed By: #### L IP, CMPX, CDP #### [facility] [address] [place], [place] [id number] Three Dimensional Map Modeler: Nino Farias MD Potassium molar conc 4.5 mmol/L Normal 3.7-5.3 [facility] Comment on above: Performed By: #### L IP, CMPX, CDP #### [facility] [address] [place], [place] [id number] Three Dimensional Map Modeler: Nino Farias MD Protein mass conc 7.0 g/dL Normal 6.4-8.3 [facility] Comment on above: Performed By: #### L IP, CMPX, CDP #### [facility] [address] [place], [place] [id number] Three Dimensional Map Modeler: Nino Farias MD Sodium molar conc 136 mmol/L Normal 135-144 [facility] Comment on above: Performed By: #### L IP, CMPX, CDP #### [facility] [address] [place] [address] Three Dimensional Map Modeler: Nino Farias MD Staging: Normal [facility] Comment on above: Result Comment: Stag e 1: Some kidney damage normal GFR Stage 2: Mild kidney damage GFR 60-89 Stage 3: Moderate kidney damage GFR 30-59 Stage 4: Severe kidney damage GFR 15-29 Stage 5: Severe kidney damage GFR <15 ESRD - chronic treatment by dialysis or transplant Performed By: #### L IP, CMPX, CDP #### [facility] [address] [place] [address] Three Dimensional Map Modeler: Nino Farias MD Urea nitrogen mass conc 18 mg/dL Normal 6-20 [facility] Comment on above: Performed By: #### L IP, CMPX, CDP #### [facility] [address] [place] [address] Three Dimensional Map Modeler: Nino Farias MD Lactic Acidon 09-08-2018 Lactate molar conc 1.2 mmol/L Normal 0.5-2.2 [facility] Comment on above: Performed By: #### L AC #### [facility] [address] [place] [address] Three Dimensional Map Modeler: Nino Farias MD Lipaseon 09-08-2018 Lipase enzyme act/vol 27 U/L Normal 13-60 [facility] Comment on above: Performed By: #### L IP, CMPX, CDP #### [facility] [address] [place] [address] Three Dimensional Map Modeler: Nino Farias MD UA w/Reflex Cultureon 2018 Acetoacetic Acid,Ur Negative Normal NEG [facility] Comment on above: Performed By: #### U MICAO, UAX #### [facility] [address] [place] [address] Three Dimensional Map Modeler: Nino Farias MD Bilirubin.direct mass conc SMALL Abnormal NEG [facility] Comment on above: Performed By: #### U MICAO, UAX #### [facility] [address] [place] [address] Three Dimensional Map Modeler: Nino Farias MD Color Nom (U) YELLOW Normal YEL [facility] Comment on above: Performed By: #### U MICAO, UAX #### [facility] [address] [place], [place] [id number] Three Dimensional Map Modeler: Nino Farias MD Glucose mass conc Negative Normal [facility] Comment on above: Performed By: #### U MICAO, UAX #### [facility] [address] [place] [address] Three Dimensional Map Modeler: Nino Farias MD Hemoglobin mass conc (Bld) Negative Normal [facility] Comment on above: Performed By: #### U MICAO, UAX #### [facility] [address] [place] [address] Three Dimensional Map Modeler: Nino Farias MD Leuckocyte Esterase Negative Normal [facility] Comment on above: Performed By: #### U MICAO, UAX #### [facility] [address] [place] [address] Three Dimensional Map Modeler: Nino Farias MD Nitrite,Ur Negative Normal [facility] Comment on above: Performed By: #### U MICAO, UAX #### [facility] [address] [place] [address] Three Dimensional Map Modeler: Nino Farias MD PH,Ur 5.5 Normal 5.0-9.0 [facility] Comment on above: Performed By: #### U MICAO, UAX #### [facility] [address] [place] [address] Three Dimensional Map Modeler: Nino Farias MD Protein mass conc Negative Normal [facility] Comment on above: Performed By: #### U MICAO, UAX #### [facility] [address] [place] [address] Three Dimensional Map Modeler: Nino Farias MD Spec. [place],Ur 1.010 Normal 1.010-1.020 [facility] Comment on above: Performed By: #### U MICAO, UAX #### [facility] [address] [place], [place] [address] Three Dimensional Map Modeler: Nino Farias MD Turbidity CLEAR Normal CLEAR [facility] Comment on above: Performed By: #### U MICAO, UAX #### [facility] [address] [place], [place] [address] Three Dimensional Map Modeler: Nino Farias MD Urobilinogen,Ur Normal Normal NORM [facility] Comment on above: Performed By: #### U MICAO, UAX #### [facility] [address] [place], [place] [address] Three Dimensional Map Modeler: Nino Farias MD Comment NOT REPORTED Normal [facility] Comment on above: Performed By: #### U MICAO, UAX #### [facility] [address] [place] [facility] Three Dimensional Map Modeler: Nino Farias MD Urinalysis,Microon 9 ----- Normal [facility] Comment on above: Performed By: #### U MICAO, UAX #### [facility] [address] [place], [place] [address] Three Dimensional Map Modeler: Nino Farias MD Bacteria LM.HPF #/area (Urine sed) TRACE Abnormal NONE [facility] Comment on above: Performed By: #### U MICAO, UAX #### [facility] [address] [place], [place] [address] Three Dimensional Map Modeler: Nino Farias MD Epithelial cells LM.HPF #/area (Urine sed) None Normal 0-25 [facility] Comment on above: Performed By: #### U MICAO, UAX #### [facility] [address] [place], [place] [address] Three Dimensional Map Modeler: Nino Farias MD RBC #/vol (U) None Normal 0-2 [facility] Comment on above: Performed By: #### U MICAO, UAX #### [facility] [address] [place] [address] Three Dimensional Map Modeler: Nino Farias MD WBC #/vol (U) 0 TO 2 Normal 0-5 [facility] Comment on above: Performed By: #### U MICAO, UAX #### [facility] [address] [place] [address] Three Dimensional Map Modeler: Nino Farias MD Amorphous sediment LM Ql (Urine sed) NOT REPORTED Normal [facility] Comment on above: Performed By: #### U MICAO, UAX #### [facility] [address] [place] [address] Three Dimensional Map Modeler: Nino Farias MD Casts LM.LPF #/area (Urine sed) NOT REPORTED Normal [facility] Comment on above: Performed By: #### U MICAO, UAX #### [facility] [address] [place] [address] Three Dimensional Map Modeler: Nino Farias MD Crystals LM Nom (Urine sed) NOT REPORTED Normal [facility] Comment on above: Performed By: #### U MICAO, UAX #### [facility] [address] [place] [address] Three Dimensional Map Modeler: Nino Farias MD Epithelial, Renal NOT REPORTED Normal 0 [facility] Comment on above: Performed By: #### U MICAO, UAX #### [facility] [address] [place] [address] Three Dimensional Map Modeler: Nino Farias MD Mucus Strands NOT REPORTED Normal [facility] Comment on above: Performed By: #### U MICAO, UAX #### [facility] [address] [place] [address] Three Dimensional Map Modeler: Nino Farias MD Other Observations NOT REPORTED Normal NREQ [facility] Comment on above: Performed By: #### U MICAO, UAX #### [facility] [address] [place] [address] Three Dimensional Map Modeler: Nino Farias MD Trichomonas NOT REPORTED Normal NONE [facility] Comment on above: Performed By: #### U MICAO, UAX #### [facility] [address] [place] [address] Three Dimensional Map Modeler: Nino Farias MD Yeast LM Ql (Urine sed) NOT REPORTED Normal NONE [facility] Comment on above: Performed By: #### U MICAO, UAX #### [facility] [address] [place] [address] Three Dimensional Map Modeler: Nino Farias MD Vital Signs Date Time Vital Sign Value Performing Clinician Faci lity 07-05-2023 22:13-0500 Diastolic blood pressure 74 mm[Hg] Arsenio Martin [facility] 07-05-2023 22:13-0500 Heart rate 62 /min Arsenio Martin [facility] 07-05-2023 22:13-0500 Mean blood pressure 85 mm[Hg] Arsenio Martin [facility] 07-05-2023 22:13-0500 Respiratory rate 14 /min Arsenio Martin [facility] 07-05-2023 22:13-0500 SaO2% (BldA) [Mass fraction] 99 % Arsenio Martin [facility] 07-05-2023 22:13-0500 Systolic blood pressure 107 mm[Hg] Arsenio Martin [facility] 07-05-2023 21:49-0500 Diastolic blood pressure 69 mm[Hg] Arsenio Martin [facility] 07-05-2023 21:49-0500 Heart rate 59 /min Arsenio Martin [facility] 07-05-2023 21:49-0500 Mean blood pressure 80 mm[Hg] Arsenio Mario [facility] 07-05-2023 21:49-0500 Respiratory rate 15 /min Arsenio Mario [facility] 07-05-2023 21:49-0500 SaO2% (BldA) [Mass fraction] 97 % Arsenio Mario [facility] 07-05-2023 21:49-0500 Systolic blood pressure 101 mm[Hg] Arsenio Mario [facility] 07-05-2023 21:02-0500 Diastolic blood pressure 77 mm[Hg] Arsenio Martin [facility] 07-05-2023 21:02-0500 Heart rate 60 /min Arsenio Martin [facility] 07-05-2023 21:02-0500 Mean blood pressure 86 mm[Hg] Arsenio Mario [facility] 07-05-2023 21:02-0500 Respiratory rate 16 /min Arsenio Martin [facility] 07-05-2023 21:02-0500 SaO2% (BldA) [Mass fraction] 99 % Arsenio Martin [facility] 07-05-2023 21:02-0500 Systolic blood pressure 105 mm[Hg] Arsenio Mario [facility] 07-05-2023 17:45-0500 Body temperature 97.52 [degF] Arsenio Mario [facility] 07-05-2023 16:27-0500 Body temperature 96.44 [degF] Arsenio Mario [facility] 07-05-2023 15:15-0500 gluc 136 mg/dL Arsenio Mario [facility] 07-05-2023 15:15-0500 gluc Arsenioulises Martin [facility] 07-05-2023 15:02-0500 Body temperature 95.9 [degF] Arsenio Mario [facility] 07-05-2023 15:02-0500 Heart rate 54 /min Arsenio Mario [facility] 07-05-2023 15:02-0500 Respiratory rate 16 /min Arsenio Mario [facility] 08-09-2022 17:25-0400 Diastolic blood pressure 64 mm[Hg] Arsenio Mario [facility] 08-09-2022 17:25-0400 Heart rate 75 /min Arsenio Mario [facility] 08-09-2022 17:25-0400 Mean blood pressure 83 mm[Hg] Arsenio Amrio [facility] 08-09-2022 17:25-0400 Respiratory rate 16 /min Arsenio Mario [facility] 08-09-2022 17:25-0400 SaO2% (BldA) [Mass fraction] 96 % Arsenio Mario [facility] 08-09-2022 17:25-0400 Systolic blood pressure 122 mm[Hg] Arsenio Mario [facility] 08-09-2022 16:00-0400 Diastolic blood pressure 56 mm[Hg] Arsenio Mario [facility] 08-09-2022 16:00-0400 Heart rate 64 /min Arsenio Mario [facility] 08-09-2022 16:00-0400 Mean blood pressure 72 mm[Hg] Arsenio Martin [facility] 08-09-2022 16:00-0400 SaO2% (BldA) [Mass fraction] 92 % Arsenio Martin [facility] 08-09-2022 16:00-0400 Systolic blood pressure 103 mm[Hg] Arsenio Martin [facility] 08-09-2022 15:00-0400 Diastolic blood pressure 67 mm[Hg] Arsenio Martin [facility] 08-09-2022 15:00-0400 Heart rate 61 /min Arsenio Martin [facility] 08-09-2022 15:00-0400 Mean blood pressure 80 mm[Hg] Arsenio Martin [facility] 08-09-2022 15:00-0400 Systolic blood pressure 106 mm[Hg] Arsenio Martin [facility] 08-09-2022 14:03-0400 SaO2% (BldA) [Mass fraction] 94.1 % Arsenio Martin [facility] Resp Auto SS 08-09-2022 13:10-0400 Body temperature 98.24 [degF] Arsenio Martin [facility] 08-09-2022 13:10-0400 Heart rate 70 /min Arsenio Martin [facility] 08-09-2022 13:10-0400 Respiratory rate 18 /min Arsenio Martin [facility] Encounters Encounter Date Encounter Type Care Provider Facility Start: 07-11-2023 Evaluation and management of inpatient LOREE CHANCE [facility] Start: 07-08-2023 Evaluation and management of inpatient MANESH LARSON [facility] Start: 07-06-2023 Evaluation and management of inpatient MANLAYNE LARSON [facility] Start: 07-06-2023 End: 07-11-2023 Evaluation and management of inpatient UMAIR MANDUJANO [facility] Start: 07-05-2023 End: 07-06-2023 Emergency department patient visit Arsenio Martin Facility:[facility] Start: 07-05-2023 End: 07-05-2023 Emergency department patient visit Arsenio Martin [facility] Start: 06-29-2023 Evaluation and management of inpatient ROSALBA MOSS [facility] Start: 06-29-2023 End: 07-02-2023 Evaluation and management of inpatient SOCORRO Zayas MATTHEW [facility] Start: 08-22-2022 End: 08-24-2022 Evaluation and management of inpatient DR ЕКАТЕРИНА ROBERT . Facility: Start: 08-09-2022 End: 08-09-2022 Emergency department patient visit Arsenio Martin Facility:[facility] Start: 08-09-2022 End: 08-09-2022 Emergency department patient visit Arsenio Martin [facility] Start: 07-30-2022 End: 08-01-2022 Evaluation and management [...] 03-04-2021 Emergency department patient visit Magdalena Oconnor Facility:[facility] Start: 09-08-2018 End: 09-08-2018 Emergency department patient visit KEISHA DORADO JR [facility] Procedures Date Procedure Procedure Detail Performing Clinician Start: 08-02-2022 Microscopic examinat ion of blood, culture DR ЕКАТЕРИНА ROBERT . Comment on above: Performed By: #### B [id number] ####[facility] [address] [place], [place] [address]Mh. Nahed Otilio Start: 11-02-2021 Antibody screen SAVANNAHI AD Comment on above: Performed By: #### 3 [id number], [id number] #### [facility] [address] Start: 07-16-2019 Phalangectomy of toe Fabián Martin Comment on above: medial base proximal phalanx fracture fragment to left 3rd toe Start: 09-08-2018 Urinalysis microscopic only KEISHA DORADO JR Start: 09-08-2018 Urnls dip stick/tabl et rgnt auto w/o microscopy KEISHA DORADO JR Start: 09-08-2018 Assay of lactate WILLIA Pablo DORADO JR Start: 09-08-2018 Assay of lipase KEISAH DORADO JR Start: 09-08-2018 Blood count complete auto&auto difrntl wbc KEISHA DORADO JR Appendectomy Arsenio Martin Tonsillectomy and adenoidectomy Arsenio Martin Payers Date Payer Category Payer Self-pay 2018 Medicare [id number] 1960 Unknown [id number] 2.16.8 [id number] 1960 Unknown [id number] 2.16.8 [id number] 1960 Unknown [id number] 2.16.84 [id number] 1961 Unknown [id number] 2.16.84 [id number] 1961 Unknown [id number] 2.16.84 [id number] 1961 Unknown [id number] 2.16.84 [id number] 1961 Unknown [id number] 2.16.84 [id number] 1961 Unknown [id number] 2.16.84 [id number] 1961 Unknown [id number] 2.16.84 [id number] 1961 Unknown [id number] 2.16.84 [id number] 1961 Unknown [id number] 2.16.8 [id number] 1961 Unknown [id number] 2.16.8 [id number] 1959 Unknown [id number] Unknown [id number] 2.16.8 [id number] Social History Date Type Detail Facility Start: 08-09-2022 Tobacco smoking status Heavy t obacco smoker (finding) [facility] Comment on above: 2 cigarettes a day Sex Assigned At Female [facility] Functional Status Date Assessment Result Facility 07-05-2023 Functional Status N/A [facility] 08-09-2022 Functional Status N/A [facility] Clinical Notes 11-03-2021 to 07-11-2023 Note [...] 10:20 AM Socorro Oviedo NP CARD Deirdre [facility] 08/06/2023 1:30 PM [facility] CV CLINIC DEVICE CHECK [facility] CARD ME HeartVAS Your medication list START taking these [...] 70.4 kg (1 (more content not included)... [facility] 07-11-2023 Note Occupational Therapy Occupational Therapy Evaluation [...] List Diagnosis NSTEMI (non-ST elevated myocardial infarction) ([facility]) Coronary arteriosclerosis Hyperlipidemia Type 2 diabetes mellitus ([facility]) Acute non-ST segment elevation myocardial infarction ([facility]) Cigarette smoker Other forms of angina [...] Level of Function Prior Function Level of Ramsey: Independent with ADLs and functional transfers, Independent [...] Eating meals?: None (Independent) Total Score OT [facility]: 24 Assessment/Plan OT Assessment OT Education/Comments: (PPM handout issued and discussed with good return demo) Plan OT Plan: No skilled OT OT Discharge Recommendations: Home OT - Discharge Recommendations Placed: Yes OT Goals Multi-Disciplinary Problems (from Occupational Therapy) Active Problems Not on file [facility] 07-11-2023 Note [facility] CARDIOLOGY PROGR ESS NOTE [...] Normal heart size. Electronically signed: Denver Hernandez. [facility] 06/29/23: Final Impression: 1) Coronary angiogram shows stable CAD 2) right heart catheterization shows severely decompensated heart failure with mean wedge pressure 35 mmHg Plan: 1) optimal med therapy for CAD and HFpEF 2) Aspirin and high intensity statin therapy for CAD 3) optimize medical therapy for HFpEF as tolerated 4) outpatient follow-up with [facility] cardiology Echo 06/29/23: Left Ventricle: The left ventricle is normal size. Global left ventricular sys (more content not included)... [facility] 07-11-2023 Note Hospital Medicine Daily Progress Note - 07/11/2023 8:24 AM; Room: 3120/3120-01 Admission: 07/06/2023 12:25 AM; Length of stay: 5 days THE HOSPITALIST TEAM PREFERS TO USE [employer] CHAT FOR COMMUNICATION 7AM-7PM. IF I DO NOT RESPOND WITHIN 15 MINUTES, PLEASE PAGE ME/CALL THROUGH THE [employer] [facility]. FROM 7PM-7AM, PLEASE PAGE [phone](COVR) Code Status: Full Code Barriers to Discharge: [...] LDL 95 07/06/2023 No results found for: [id number] , IRON , TIBC , C3 , [...] clear. Normal heart (more content not included)... [facility] 07-10-2023 Note Indications for dual -chamber pacemaker [...] of the upper extremity Loree Chance M.D. [facility] [employer] service coordinator and Pediatrics Director: Cardiac Electrophysiology Program [facility] 07-10-2023 Note Patient: Vivian Dela Cruz or Procedure Information Date/Time: 07/10/23 1500 Procedure: Implant PPM Location: [facility] / [facility] (Cath) Providers: Loree Chance [...] discussed with patient who. Additional Equipment Requests [facility] 07-10-2023 Note [facility] CARDIOLOGY PROGR ESS NOTE [...] lock IV AND sodium chloride CV Testing: [facility] 06/29/23: Final Impression: 1) Coronary angiogram shows stable CAD 2) right heart catheterization shows severely decompensated heart failure with mean wedge pressure 35 mmHg Plan: 1) optimal med therapy for CAD and HFpEF 2) Aspirin and high intensity statin therapy for CAD 3) optimize medical therapy for HFpEF as tolerated 4) outpatient follow-up with [facility] cardiology Echo 06/29/23: Left Ventricle: The left [...] 86 QT Interval 466 QTC CALCULATION(BAZETT) 476 R-Gratis 34 T Wave Gratis [address] & Marked T wave abnormality, consider anterolateral ischemia Prolonged QT Abnormal ECG When compared with ECG of 06-JUL-2023 14:34, T wave inversion less evident in Lateral Confirmed by Yoan GRIJALVA, KIERA Rainey (58) on 07/08/2023 12:23:36 PM Assessment/Plan Junctional bradycardia Abnormal EKG- ST/T wave changes concerning for ischemia- [facility] showed stable CAD Ventric (more content not included)... [facility] 07-10-2023 Note Hospital Medicine Daily Progress Note - 07/10/2023 8:08 AM; Room: [address] [place] [address] Admission: 07/06/2023 12:25 AM; Length of stay: 4 days THE HOSPITALIST TEAM PREFERS TO USE [employer] CHAT FOR COMMUNICATION 7AM-7PM. IF I DO NOT RESPOND WITHIN 15 MINUTES, PLEASE PAGE ME/CALL THROUGH THE [employer] DEAN. FROM 7PM-7AM, PLEASE PAGE [phone](COVR) Code Status: Full Code Barriers to Discharge: [...] LDL 95 07/06/2023 No results found for: [id number] , IRON , TIBC , C3 , [...] need to arrange for her transportation needs; film writer provided printed information to Pt for local [employer] for Pt (more content not included)... [facility] 07-09-2023 Note Patient admitted to the hospital for: Bradycardia. Chart echo from 06/29/2023 reports: EF 60%. Echo report does Not qualify for Cardiac Rehab services per CMS eligibility criteria. A Cardiac Rehab referral must also meet CMS criteria. Marline Suarez, RN, BSN Cardiopulmonary Rehab Coordinator [facility] 07-09-2023 Note Cardiology Inpatient Progress Note Subjective [...] 86 QT Interval 466 QTC CALCULATION(BAZETT) 476 R-Gratis 34 T Wave Gratis [address] & Marked [...] HFpEF as tolerated 4) outpatient follow-up with [facility] cardiology Hemodynamic Data: RA: 17 mmHg RV: [...] sinus bradycardia a (more content not included)... [facility] 07-09-2023 Note Hospital Medicine Daily Progress Note - 07/09/2023 11:10 AM; Room: [address] [place] [address] Admission: 07/06/2023 12:25 AM; Length of stay: 3 days THE HOSPITALIST TEAM PREFERS TO USE [employer] CHAT FOR COMMUNICATION 7AM-7PM. IF I DO NOT RESPOND WITHIN 15 MINUTES, PLEASE PAGE ME/CALL THROUGH THE [employer] DEAN. FROM 7PM-7AM, PLEASE PAGE [phone](COVR) Code Status: Full Code Barriers to Discharge: [...] LDL 95 07/06/2023 No results found for: [id number] , IRON , TIBC , C3 , [...] Planning TBD Signed Jayden Haider MD MS4 [facility] Medicine 07/09/2023 11: (more content not included)... [facility] 07-08-2023 Note ---- Attestation signed by Kiera [...] 07/08/23 0802 84/55 36.4 ???C (97.5 ???F) [facility] 67 21 98 % -- 07/08/23 [...] 86 QT Interval 466 QTC CALCULATION(BAZETT) 476 R-Gratis 34 T Wave Gratis [address] & Marked T wave abnormality, consider anterolateral ischemia Prolonged QT Abnormal ECG When compared with ECG of 06-JUL-2023 14:34, T wave inversion less evident in Lateral Lab Results Component Value Date CKTOTAL 36.0 07/06/2023 TROPONINI 0.12 (HH) 07/06/2023 Complete Echo (TTE) w/wo Imaging Agent, Strain, 3D, Bubble Study Result Date: 06/29/2023 1 1 [facility] Heart Station [address] [place] [address] [phone] (fax) Echocardiogram-[facility] Name: VIVIAN VANN Study [...] Valve: The mitr (more content not included)... [facility] 07-08-2023 Note Hospital Medicine Daily Progress Note - 07/08/2023 8:42 AM; Room: Formerly named [facility]/3120- Admission: 07/06/2023 12:25 AM; Length of stay: 2 days THE HOSPITALIST TEAM PREFERS TO USE [employer] CHAT FOR COMMUNICATION 7AM-7PM. IF I DO NOT RESPOND WITHIN 15 MINUTES, PLEASE PAGE ME/CALL THROUGH THE [employer]. FROM 7PM-7AM, PLEASE PAGE [phone](COVR) Code Status: Full Code Barriers to Discharge: [...] LDL 95 07/06/2023 No results found for: [id number] , IRON , TIBC , C3 , [...] Planning TBD Signed Jayden Haider MD MS4 [facility] Medicine 07/08/2023 8:42 AM [facility] 07-07-2023 Note ---- Attestation signed by Kiera [...] 07/06/23 1725 91/66 36.4 ???C (97.6 ???F) [facility] 64 13 97 % -- -- [...] 84 QT Interval 434 QTC CALCULATION(BAZETT) 451 R-Gratis 23 T Wave Gratis [address] & Marked [...] Bubble Study Result Date: 06/29/2023 1 1 [facility] [address] [place] [address] [phone] (fax) Echocardiogram-[facility] Name: VIVIAN VANN Study [...] abnormality. Right Ventricle: (more content not included)... [facility] 07-07-2023 Note Hospital Medicine Daily Progress Note - 07/07/2023 10:19 AM; Room: [address] [place] [address] Admission: 07/06/2023 12:25 AM; Length of stay: 1 days THE HOSPITALIST TEAM PREFERS TO USE EPIC CHAT FOR COMMUNICATION 7AM-7PM. IF I DO NOT RESPOND WITHIN 15 MINUTES, PLEASE PAGE ME/CALL THROUGH THE [employer]. FROM 7PM-7AM, PLEASE PAGE [phone](COVR) Code Status: Full Code Barriers to Discharge: [...] 4.6 3.7 CHLORIDE (more content not included)... [facility] 07-06-2023 Note communication receiv ed that Patient [...] for discharge: [facility] hospital address is [address] [place] [address] An[employer] Medicare to ask if non-emergency medical transportation is a covered benefit of the specific plan (https://[email or web address]/contact-us/ohi o/) Taxis in [place] ([email or web address]/[email or web address]) [employer] [facility] [phone] ([phone]) [employer] [phone] [facility] 07-06-2023 Note 07/06/23 1625 Referral Data Referral Source behavioral health worker Patient Information Primary Caregiver Self Activities [...] need to arrange for her transportation needs; film writer provided printed information to Pt for local taxi [employer] companies for Pt to consider; [facility] unable to pay for another one-time courtesy taxi cab for 57miles one-way trip) [facility] 07-06-2023 Note 1526 film writer attempted to meet with Pt to discuss discharge planning (including Patient will need to arrange her transportation once she is medically cleared to discharge to home); Patient not in bed; unable to complete [id number] 1542 film writer attempted to meet with Pt to discuss discharge planning (including Patient will need to arrange her transportation once she is medically cleared to discharge to home); Patient caring for toileting hygiene; unable to complete [id number]-[id number] [facility] 07-06-2023 Note 07/06/23 1219 Admission Assessment Questions [...] Discharge? Yes Does the patient have a case management rn assigned to them through their insurance? No [...] to send link and activate MyChart? Yes [facility] 07-06-2023 Note ---- Attestation signed by Jayden [...] Progress Note - 07/06/2023 11:37 AM; Room: [address] [place] [address] Admission: 07/05/2023 11:50 PM; Length of stay: 1 days THE HOSPITALIST TEAM PREFERS TO USE [employer] CHAT FOR COMMUNICATION 7AM-7PM. IF I DO NOT RESPOND WITHIN 15 MINUTES, PLEASE PAGE ME/CALL THROUGH THE [employer]. FROM 7PM-7AM, PLEASE PAGE [phone](COVR) Code Status: Full Code Barriers to Discharge: [...] -Continue home medi (more content not included)... [facility] 07-06-2023 Note . Hospital Medicine History and Physical 07/06/2023 1:19 AM THE HOSPITALIST TEAM PREFERS TO USE [employer] CHAT FOR COMMUNICATION 7AM-7PM. IF I DO NOT RESPOND WITHIN 15 MINUTES, PLEASE PAGE ME/CALL THROUGH THE [employer]. FROM 7PM-7AM, PLEASE PAGE [phone](COVR) Chief Complaint No chief complaint on file. [...] Bradycardia 07/06/2023 NSTEMI (non-ST elevated myocardial infarction) ([facility]) 06/29/2023 Other forms of angina pectoris 06/29/2023 Hypomagnesemia 06/29/2023 Acute midline low back pain without sciatica 06/29/2023 Coronary arteriosclerosis 11/24/2021 Hyperlipidemia 11/24/2021 Type 2 diabetes mellitus ([facility]) 11/24/2021 Acute non-ST segment elevation myocardial infarction ([facility]) 11/24/2021 Cigarette smoker 11/24/2021 Assessment [...] this hospital stay by a member of [facility] Medicine. Past Medical History No past [...] (CARDIA) Difficulty of (more content not included)... [facility] 07-05-2023 Evaluation + Plan note Extrac florinda [...] Reflex 07/05/23 * Drug Screen Urine 07/05/23 [facility]02-19-2024 NotePatient admitted to the hospital for: NSTEMI. Review of the last noted chart Echo from 06/29/2023 reports: EF 60%. Reported echo result does not qualify for Cardiac Rehab services per [facility] eligibility criteria for CHF. Marline Suarez, RN, BSN Cardiopulmonary Rehab Coordinator[facility]20[facility] Note07/02/23 1116 Referral Data Referral Source behavioral health worker Patient Information Primary Caregiver Self Activities of Daily Living Assistive Device Not applicable Living Arrangement (Current/Prior to Hospitalization) Private residence;Home self care Behavior Oriented Communication Talks;Understands speaking Discharge Planning Support Systems Therapist (planning discharge to home; communication rcvd Pt not wanting [facility] services) Type of Residence/Post Acute Needs Private residence Will patient need Precert for Post Acute needs? No Patient's goal for discharge home RucCC screened; Pt declining HHC, Consult resolved 1340 Communication received that Pt needing transportation to home since was transferred here from [facility], does not drive, lives alone, does not have friends or family who can transport ([phone]) PC to [employer]; from [address] [place] [address] to [address] [place] [address] will be $146 Transformer Assembler provided verbal estimate to detail supervisor, verbal approval from detail supervisor [phone] taxi cab transportation arranged; bedside RN notified Confirmation #: [id number] Passenger: VIVIAN VANN Phone Number: [phone] Pickup Date/Time: 07/02/2023 3:00 PM Pickup Address: [facility], [address] [place] [address], [place], [address] Drop Off Address: [address] [place] [address]. Arlene Notes: please pickup at [facility]02-19-2024 Note07/02/23 1017 Admission Assessment Questions Verify insurance [...] Discharge? Yes Does the patient have a case management rn assigned to them through their insurance? No [...] able to send link and activate MyChart? [facility]02-19-2024 Note Attestation signed by Merritt Guerrero [...] Value Ventricular Rate 61 Atrial Rate 61 NC Interval 150 QRS DURATION 88 QT Interval 476 QTC CALCULATION(BAZETT) 479 P Gratis 68 R-Gratis 25 T Wave Gratis 128 Impression Normal sinus rhythm Right atrial [...] Bubble Study Result Date: 06/29/2023 1 1 [facility] Heart [facility] [address] [place] [address] [phone] (fax) Echocardiogram-[facility] Name: VIVIAN VANN Study [...] ventricular systolic function. Dop (more content not included)...[facility]02-18-2024 NoteHospital Medicine Daily Progress Note - 07/01/2023 12:00 PM; Room: [address] [place] [address] Admission: 06/29/2023 11:04 AM; Length of stay: 2 days THE HOSPITALIST TEAM PREFERS TO USE EPIC CHAT FOR COMMUNICATION 7AM-7PM. IF I DO NOT RESPOND WITHIN 15 MINUTES, PLEASE PAGE ME/CALL THROUGH THE [employer]. FROM 7PM-7AM, PLEASE PAGE [phone](COVR) Code Status: Full Code Barriers to Discharge: [...] Principal Problem: NSTEMI (non-ST elevated myocardial infarction) ([facility]) Active Problems: Hyperlipidemia Type 2 diabetes mellitus ([facility]) Other forms of angina pectoris [...] LDL 114 11/02/2021 No results found for: [id number] , IRON , TIBC , C3 , C4 , WENDI , CANCA , ASO , PSA , CEA , CA125 , CA199 , AFP , CA153 Imaging ECG 12 lead Normal sinus rhythm Right atrial (more content not included)...[facility] 07-01-2023 Note Attestation signed by Merritt Guerrero [...] Value Ventricular Rate 61 Atrial Rate 61 NC Interval 150 QRS DURATION 88 QT Interval 476 QTC CALCULATION(BAZETT) 479 P Gratis 68 R-Gratis 25 T Wave Gratis 128 Impression Normal sinus rhythm Right atrial [...] Bubble Study Result Date: 06/29/2023 1 1 [facility] [address] [place] [address] [phone] (fax) Echocardiogram-[facility] Name: VIVIAN VANN Study [...] Right Ventricle: The r (more content not included)...[facility]02-17-2024 Note Attestation signed by Merritt Guerrero MD [...] Value Ventricular Rate 61 Atrial Rate 61 NC Interval 150 QRS DURATION 88 QT Interval 476 QTC CALCULATION(BAZETT) 479 P Gratis 68 R-Gratis 25 T Wave Gratis 128 Impression Normal sinus rhythm Right atrial [...] Bubble Study Result Date: 06/29/2023 1 1 [facility] [address] [place] [address] [phone] (fax) Echocardiogram-[facility] Name: VIVIAN VANN Study [...] Mild Mild N (more content not included)... [facility]02-17-2024 NoteHospital Medicine Daily Progress Note - 06/30/2023 11:32 AM; Room: Former[facility] named [facility]/3120- Admission: 06/29/2023 11:04 AM; Length of stay: 1 days THE HOSPITALIST TEAM PREFERS TO USE [employer] CHAT FOR COMMUNICATION 7AM-7PM. IF I DO NOT RESPOND WITHIN 15 MINUTES, PLEASE PAGE ME/CALL THROUGH THE [employer]. FROM 7PM-7AM, PLEASE PAGE [phone](COVR) Code Status: Full Code Barriers to Discharge: [...] Principal Problem: NSTEMI (non-ST elevated myocardial infarction) ([facility]) Active Problems: Hyperlipidemia Type 2 diabetes mellitus ([facility]) Other forms of angina pectoris [...] LDL 114 11/02/2021 No results found for: [id number] , IRON , TIBC , C3 , C4 , WENDI , CANCA , ASO , PSA , CEA , CA125 , CA199 , AFP , CA153 Imaging ECG 12 lead Normal sinus rhythm Right atrial enlargement ST & T wave abnormality, consider ante (more content not included)...[facility]02-16-2024 NotePatient: Vivian Vann Procedure Information Date/Time: 06/29/23 1655 Procedure: Coronary angiography Location: [facility] / [facility] (Cath) Providers: Ortiz Aquino [...] who. Plan discussed with attending. [facility] Hospital Medicine History and Physical 06/29/2023 12:51 PM THE HOSPITALIST TEAM PREFERS TO USE [employer] CHAT FOR COMMUNICATION 7AM-7PM. IF I DO NOT RESPOND WITHIN 15 MINUTES, PLEASE PAGE ME/CALL THROUGH THE [employer]. FROM 7PM-7AM, PLEASE PAGE [phone](COVR) Chief Complaint Direct admission from [facility] for NSTEMI requiring cardiac cath History of Present Illness Vivian Vann is an 63 y.o. female who came from [facility] as direct asmission for NSTEMI. Patient presented 06/28/23 to [place] ED for c/o chest pain and lower [...] nursing note reviewed. Exam conducted with a electronic equipment repairer present. Constitutional: General: She is not [...] Date Noted NSTEMI (non-ST elevated myocardial infarction) ([facility]) 06/29/2023 Assessment and Plan Chest pain Low Back Pain NSTEMI -Troponin [address] [facility], troponin now 0.07 - aPTT 67.3, [...] Heparin drip with titratio (more content not included)...[facility]04-05-2023 NoteMicrobiology PROCEDURE: Blood Culture Charcoal [R1] SOURCE: [...] Locations R1: This test was performed at: [facility], [address] [place] [address], [id number] [place] [address], [id number] Rodriguez StreetComment on above:Performed By: #### [id number] ####[address] [id number] NoteMicrobiology PROCEDURE: Blood Culture Charcoal [R1] SOURCE: Blood BODY SITE: Arm L COLLECTED DATE/TIME: 08/09/2022 14:09 EDT RECEIVED DATE/TIME: 08/09/2022 14:17 EDT START DATE/TIME: 08/09/2022 14:17 EDT FREE TEXT SOURCE: lt ac Nic PA-C, Clinton C Nic PA-C, Clinton C FINAL REPORTS Final Report [] Verified Date/Time: 08/16/2022 15:58 EDT No growth at 7 days. Performing Locations R1: This test was performed at: [facility], [address] [place] [address], [id number] [place] [address], [id number] StreetComment on above:Performed By: #### [id number] ####[address] [id number] Hospital Discharge instructions Patient Education 08/09/2022 16:50:59 [...] Follow these instructions at home: Medicines Take wvud-uoy-iwqugxw and prescription medicines (inhaled or pills) only [...] 02/07/2006 Document Revised: 04/12/2018 Document Reviewed: 06/04/2017 [employer] Patient Education 2020 [employer]. Follow Up Care 08/09/2022 13:09:28 With:Екатерина Robert Address: [address] [place] [id number] Business (1) When:08/12/2022 16:50:37 Comments:Call the office [...] you develop any new or worsening symptoms. [facility]03-29-2023 Evaluation + Plan noteExtracted from: Title:ED Note [...] Charcoal 08/09/22 * Blood Culture Charcoal 08/09/22 [facility]06-23-2022 NoteMR#: [id number] I [facility] Pt. Name: Vivian Vann Admitted: 11/01/2021 Discharged: 11/03/2021 Date of : 1960 Physician: Tamie Fajardo MD DISCHARGE SUMMARY PRINCIPAL DIAGNOSIS: Rbf-UZ-qkfynmjyn myocardial infarction. SECONDARY DIAGNOSES: 1. Questionable small subsegmental PE in the right lower lobe, favored to be chronic per CT angio done outside facility. 2. Peptic ulcer disease. 3. Depression. 4. Chronic obstructive pulmonary disease. 5. THC use. 6. Nicotine use. HOSPITAL COURSE: Again, the patient was admitted to the hospital on 11/01/2021, with chest pain and she was found to have a sxc-ZN-faljawbbj VT. The patient underwent cardiac catheterization and had [...] Tamie Fajardo MD 11/04/2021 04:08 P Tamie Fajarod MD Date Dict: 11/03/2021/12:37 P/Tamie Fajardo MD Date Trans: 11/03/2021 01:10 P/laura [id number] cc: Gasper Avendano M.D. [address] [place] [address] Екатерина Robert M.D. [place] [id number] [facility] [id number] Hospital[facility] Narrative No data available for this section [facility] No data available for this section [facility] No data available for this section [facility] Summary Purpose Family History No Family History [...] content) DATE CREATED AUTHOR 09/12/2018 Sury Vasquez [facility] DATE CREATED AUTHOR AUTHOR'S ORGANIZ ATION 01/06/2022 [facility] DATE CREATED AUTHOR AUTHOR'S ORGANIZ ATION 09/05/2022 [facility] DATE CREATED AUTHOR AUTHOR'S ORGANIZ ATION 07/13/2023 [facility] DATE CREATED AUTHOR AUTHOR'S ORGANIZ ATION 07/13/2023 [facility] DATE CREATED AUTHOR AUTHOR'S ORGANIZ ATION 07/19/2023 [facility] Patient Care team informatio n (unrecognized section and content) Personnel Name: Екатерина Robert MD Address: Address: [address] [place] [address] Personnel Name: Екатерина Robert MD Address: Address: [address] [place] [address] FOR RECORDS PERTAINING TO PATIENTS WHO ARE [...] BE BASED ON THE PRIMARY CLINICAL RECORDS. [facility]. provides no warranty or guarantee of the accuracy or completeness of information in this document.
--- NOTE | 2023-07-29 16:11 | ED.GENADUL1 ---
HPI - General Adult General Chief complaint: Shortness of Breath/Dyspnea Stated complaint: Shortness of Breath, Back Pain Time Seen by Provider: 07/29/23 15:53 Source: patient Source information: Arrival via EMS Mode of arrival: ambulance Limitations: no limitations History of Present Illness HPI narrative: Patient presents for evaluation of not feeling well. Patient very tearful, speaking rapidly with pressured speech, noting that she is on disability, has pain from her head to her toe on the right side which is why she is on disability. Patient states she finds herself short of breath, recently admitted and discharged on 07/24 currently taking cefdinir and prednisone. But I am not feeling any better. . Patient Cries, then doubles back on why she is on disability and that she has pneumonia. Pt notes her pain is chronic. I am here because I am just not any better. Pt speaking in full sentences with stable vital signs, but appears acutely anxious. Related Data Home Medications Medication Instructions Recorded Confirmed alprazolam 1 mg tablet 1 mg PO BID 06/10/23 07/29/23 aspirin 81 mg tablet,delayed 81 mg PO DAILY 06/10/23 07/29/23 release atorvastatin 80 mg tablet 80 mg PO DAILY 06/10/23 07/29/23 buspirone 10 mg tablet 10 mg PO BID 06/10/23 07/29/23 carvedilol 6.25 mg tablet 6.25 mg PO BID 06/10/23 07/29/23 clopidogrel 75 mg tablet 75 mg PO DAILY 06/10/23 07/29/23 dapagliflozin propanediol 10 mg 10 mg PO DAILY 06/10/23 07/29/23 tablet (Farxiga) gabapentin 300 mg capsule 300 mg PO TID 06/10/23 07/29/23 trazodone 50 mg tablet 50 mg PO DAILY 06/10/23 07/23/23 albuterol sulfate 90 mcg/actuation 2 puff inhalation Q6H PRN 06/29/23 07/29/23 aerosol inhaler shortness of breath or wheezing pantoprazole 40 mg tablet,delayed 40 mg PO DAILY 06/29/23 07/29/23 release furosemide 40 mg tablet 40 mg PO QAM 07/23/23 07/23/23 spironolactone 25 mg tablet 25 mg PO QAM 07/23/23 07/23/23 cyclobenzaprine 10 mg tablet 10 mg PO Q12H PRN muscle spasm 07/29/23 07/29/23 Previous Rx's Medication Instructions Recorded levothyroxine 75 mcg tablet 75 mcg PO ACB #30 tabs 06/11/23 cefdinir 300 mg capsule 600 mg (2 x 300 mg) PO DAILY #20 07/25/23 caps prednisone 10 mg tablet 30 mg (3 x 10 mg) PO DAILY #20 tabs 07/25/23 Allergies Allergy/AdvReac Type Severity Reaction Status Date / Time No Known Drug Allergies Allergy Verified 06/29/23 03:50 Review of Systems ROS Constitutional Denies: fever or chills Cardiovascular Reports: chest pain; Denies: palpitations Respiratory Reports: shortness of breath and cough; Denies: pain on inspiration Gastrointestinal Denies: abdominal pain, nausea or vomiting Genitourinary Denies: painful urination Musculoskeletal Reports: back pain and extremity pain (chroncic pain in right leg. ) Integumentary/Breast Denies: rash or itching Neurological Denies: headache Endocrine Denies: excessive urination [facility] Medical History (Updated 07/29/23 @ 17:23 by AARON Clifford) Coronary artery disease ?I25.10 - Atherosclerotic heart disease of [place] coronary artery without angina pectoris (ICD-10) Pacemaker ?Z95.0 - Presence of cardiac pacemaker (ICD-10) Iron deficiency anemia ?D50.9 - Iron deficiency anemia, unspecified (ICD-10) COPD (chronic obstructive pulmonary disease) ?J44.9 - Chronic obstructive pulmonary disease, unspecified (ICD-10) Hypoxia ?R09.02 - Hypoxemia (ICD-10) Elevated troponin ?R79.89 - Other specified abnormal findings of blood chemistry (ICD-10) Dyspnea ?R06.00 - Dyspnea, unspecified (ICD-10) Elevated brain natriuretic peptide (BNP) level ?R79.89 - Other specified abnormal findings of blood chemistry (ICD-10) Hypertension ?I10 - Essential (primary) hypertension (ICD-10) Elevated troponin ?R79.89 - Other specified abnormal findings of blood chemistry (ICD-10) Acute dyspnea ?R06.00 - Dyspnea, unspecified (ICD-10) IBS (irritable bowel syndrome) ?K58.9 - Irritable bowel syndrome without diarrhea (ICD-10) Anxiety ?F41.9 - Anxiety disorder, unspecified (ICD-10) Heart attack ?I21.9 - Acute myocardial infarction, unspecified (ICD-10) Sciatic leg pain ?M54.30 - Sciatica, unspecified side (ICD-10) Herniated disc, cervical ?M50.20 - Other cervical disc displacement, unspecified cervical region (ICD-10) Surgical History History of appendectomy ?Z90.49 - Acquired absence of other specified parts of digestive tract (ICD-10) History of heart artery stent ?Z95.5 - Presence of coronary angioplasty implant and graft (ICD-10) Family History Other Family history of diabetes mellitus Family history of myocardial infarction Social History Within the past year, how often did you have a drink containing alcohol: monthly or less Smoking status: Current every day smoker Nicotine containing products detail: 1 pack/week Non-prescribed substance use: cannabis (any form) Non-prescribed substance use details: smokes marijuana, gummies Highest level of school completed/degree received: high school graduate Exam Narrative Exam Narrative: Nurses notes and vital signs reviewed and patient is not hypoxic. General: The patient appears Acutely anxious, tearful, speaking with pressured speech. Pt does not appear dyspneic, but very anxious a living alone, having pneumonia Skin: Warm, dry, no pallor noted. no evidence of rash Head: Normocephalic, atraumatic. Neck: Supple, trachea mid-line, no tenderness, no lymphadenopathy. Eye: Pupils are equal, round and reactive to light, EOMI Ears, Nose, Mouth, and Throat: TM are clear, mod cerumen bilateral, oral mucosa is moist, no posterior oropharynx erythema or hypertrophy, uvula is mid-line Cardiovascular: Regular Rate and Rhythm Respiratory: Patient is in no distress, no accessory muscle use, lungs are clear to auscultation, no wheezing, rales or rhonchi. Chest Wall: no tenderness Back: non-tender, no CVA tenderness Musculoskeletal: normal ROM, no tenderness, no swelling GI: Normal bowel sounds, no tenderness to palpation, no masses appreciated. No rebound, guarding, or rigidity noted. Neurological: A&O x4 Psychiatric: Cooperative but extremely anxious Constitutional Vital Signs, click to edit/add: Last Vital Signs Temp 97.9 F 07/29/23 15:54 Pulse 90 07/29/23 15:54 Resp 18 07/29/23 15:54 BP 150/100 H 07/29/23 15:54 Pulse Ox 98 07/29/23 15:54 O2 Del Method Room Air 07/29/23 15:54 Course Vital Signs Vital signs: Vital Signs Temperature 97.9 F 07/29/23 15:54 Pulse Rate 90 07/29/23 15:54 Respiratory Rate 18 07/29/23 15:54 Blood Pressure 150/100 H 07/29/23 15:54 Pulse Oximetry 98 07/29/23 15:54 Oxygen Delivery Method Room Air 07/29/23 15:54 Temperature 97.9 F 07/29/23 15:54 Pulse Rate 90 07/29/23 15:54 Respiratory Rate 18 07/29/23 15:54 Blood Pressure 150/100 H 07/29/23 15:54 Pulse Oximetry 98 07/29/23 15:54 Oxygen Delivery Method Room Air 07/29/23 15:54 Medical Decision Making MDM Narrative Medical decision making narrative: Patient's tearfulness, anxiety treated with Ativan which she takes chronically as prescribed. Patient appears much more calm, chest x-ray clear without evidence of infiltrate. We discussed her symptoms, patient noted to have dehydration with acute kidney injury compared to prior labs, her troponin appears to be trending downwards. Patient noted some epigastric discomfort and was given Protonix which she takes on a chronic basis. Patient lives alone, given her recent history, current steroid use and dehydration with prior possible CHF we recommend gentle hydration given 500 mL IV fluid bolus here. Urinalysis pending, discussed social circumstance, her baseline anxiety and recent admission with treatment including abx and steroid with elevated wbc. Recommend observation admission for IV hydration. Dr. Pierce agreeable and recommend Med surg obs. Medical Records Medical records reviewed: Yes I reviewed the patient's medical records Medical records narrative: 07/24/23 Cardiac Echo:LVEF 70-75%, mild concentric left ventricular hypertrophy with hyperdynamic systolic function. Normal right ventricular size and systolic function. CT Chest without contrast 06/11/23: normal exercise cardiac stress test, no reversible ischemia. Lab Data Lab results reviewed: Yes I reviewed the patient's lab results Labs: Lab Results 07/29/23 Range/Units 16:15 WBC 24.0 H (4.0-11.0) 10^3/uL RBC 5.44 H (4.20-5.40) 10^6/uL Hgb 14.8 (12.0-16.0) g/dL Hct 47.8 (36.0-48.0) % MCV 87.9 (81.0-99.0) fL MCH 27.2 (26.7-34.0) pg MCHC 31.0 (29.9-35.2) g/dL RDW 15.2 H (11.0-15.0) % Plt Count 626 H (150-450) 10^3/uL MPV 9.7 (9.5-13.5) fL Neut % (Auto) 79.7 H (43.0-75.0) % Lymph % (Auto) 13.7 L (20.5-60.0) % Mineral % (Auto) 4.4 (1.7-12.0) % Eos % (Auto) 0.7 L (0.9-7.0) % Baso % (Auto) 0.3 (0.2-2.0) % Neut # (Auto) 19.2 H (1.4-6.5) 10^3/uL Lymph # (Auto) 3.3 (1.2-3.8) 10^3/uL Mineral # (Auto) 1.1 H (0.3-0.8) 10^3/uL Eos # (Auto) 0.2 (0.0-0.7) 10^3/uL Baso # (Auto) 0.1 (0.0-0.1) 10^3/uL Abs Immat Gran (auto) 0.29 H (0.00-0.03) 10^3/uL Imm/Tot Granulo (auto) 1.2 H (0.0-0.5) % PT 9.3 (9.0-11.6) sec INR <0.93 APTT 23.6 (22.3-36.2) sec Sodium 131 L (136-145) mmol/L Potassium 5.1 (3.5-5.1) mmol/L Chloride 93 L (98-107) mmol/L Carbon Dioxide 27.3 (21.0-32.0) mmol/L Anion Gap 15.8 BUN 28.0 H (7.0-18.0) mg/dL Creatinine 1.46 H (0.55-1.02) mg/dL Est GFR ( Amer) 44 L (>=60) Est GFR (Non-Af Amer) 36 L (>=60) BUN/Creatinine Ratio 19.2 Glucose 341 H (74-106) mg/dL Calcium 9.7 (8.5-10.1) mg/dL Troponin I High Sens 142.0 H* (4.0-51.3) pg/mL NT-Pro-B Natriuret Pep 376.0 (<=900.0) pg/mL Imaging Data Chest x-ray: Radiologist's impression: ITS Impressions Chest X-Ray 07/29/23 16:01 IMPRESSION: 1. No acute cardiopulmonary disease. Electronically authenticated by: JOSE GIMENEZ Date: 07/29/2023 16:58 ECG Data Attestation: I personally reviewed and interpreted this ECG as follows: Interpretation: EKG interpretation: Emergency Department physician interpretation, normal sinus rhythm, no ectopy, no ST segment elevation, normal axis. Discharge Plan Discharge Chief Complaint: Shortness of Breath/Dyspnea Clinical Impression: Acute kidney injury, Acute anxiety Patient Disposition: Admitted as Observation Time of Disposition Decision: 17:21 Condition: Good Prescriptions / Home Meds: No Action pantoprazole 40 mg tablet,delayed release (DR/EC) 40 mg PO DAILY albuterol sulfate 90 mcg/actuation HFA aerosol inhaler 2 puff INHALATION Q6H PRN (Reason: shortness of breath or wheezing) furosemide 40 mg tablet 40 mg PO QAM spironolactone 25 mg tablet 25 mg PO QAM cefdinir 300 mg capsule 600 mg PO DAILY Qty: 20 0RF prednisone 10 mg tablet 30 mg PO DAILY Qty: 20 0RF Rx Instructions: 3/day for 3 days, 2/day for 3 days, 1/day for 3 days, 1/2 /day for 4 days atorvastatin 80 mg tablet 80 mg PO DAILY carvedilol 6.25 mg tablet 6.25 mg PO BID alprazolam 1 mg tablet 1 mg PO BID clopidogrel 75 mg tablet 75 mg PO DAILY aspirin 81 mg tablet,delayed release (DR/EC) 81 mg PO DAILY buspirone 10 mg tablet 10 mg PO BID gabapentin 300 mg capsule 300 mg PO TID dapagliflozin propanediol [Farxiga] 10 mg tablet 10 mg PO DAILY trazodone 50 mg tablet 50 mg PO DAILY levothyroxine 75 mcg Tablet 75 mcg PO ACB Qty: 30 11RF Referrals: Charlie Richardson MD [Primary Care Provider] - 1 week
[2023-07-29 16:21] LABS: Basophils Absolute Auto 0.1 10^3/uL (0.0-0.1); Basophils Percent Auto 0.3 % (0.2-2.0); Eosinophils Absolute Auto 0.2 10^3/uL (0.0-0.7); Eosinophils Percent Auto 0.7 % (0.9-7.0); Hematocrit 47.8 % (36.0-48.0); Hemoglobin 14.8 g/dL (12.0-16.0); Immature Granulocytes Abs Auto 0.29 10^3/uL (0.00-0.03); Immature Granulocytes Pct Auto 1.2 % (0.0-0.5); Lymphocytes Absolute Auto 3.3 10^3/uL (1.2-3.8); Lymphocytes Percent Auto 13.7 % (20.5-60.0); Mean Corpuscular Hemoglobin 27.2 pg (26.7-34.0); Mean Corpuscular Volume 87.9 fL (81.0-99.0); Mean Platelet Volume 9.7 fL (9.5-13.5); Monocytes Absolute Auto 1.1 10^3/uL (0.3-0.8); Monocytes Percent Auto 4.4 % (1.7-12.0); Neutrophils Absolute Auto 19.2 10^3/uL (1.4-6.5); Neutrophils Percent Auto 79.7 % (43.0-75.0); Platelet Count 626 10^3/uL (150-450); Red Blood Count 5.44 10^6/uL (4.20-5.40); Red Cell Distribution Width 15.2 % (11.0-15.0)
[2023-07-29] MEDS: LORAZEPAM 2 MG/ML 1 ML VIAL 1 MG IV (16:22)
[2023-07-29 16:38] LABS: Partial Thromboplastin Time 23.6 sec (22.3-36.2); Prothrombin Time 9.3 sec (9.0-11.6)
[2023-07-29 16:40] LABS: INR <0.93
[2023-07-29] MEDS: PANTOPRAZOLE SODIUM 40 MG VIAL IV (16:41)
[2023-07-29] MEDS: ONDANSETRON PF 4 MG/2 ML VIAL IV ×2 (16:41→22:47)
[2023-07-29 16:48] LABS: Anion Gap 15.8; BUN Creatinine Ratio 19.2; Calcium 9.7 mg/dL (8.5-10.1); Carbon Dioxide 27.3 mmol/L (21.0-32.0); Chloride 93 mmol/L (98-107); Estimated GFR (African America 44 (>=60); Estimated GFR (Non-African Ame 36 (>=60); Glucose 341 mg/dL (74-106); Potassium 5.1 mmol/L (3.5-5.1); Sodium 131 mmol/L (136-145)
[2023-07-29] MEDS: ACETAMINOPHEN 500 MG TABLET 1000 MG PO (17:10)
[2023-07-29] MEDS: 0.9 % SODIUM CHLORIDE 1,000 ML 500 ML IV (17:10)
[2023-07-29 17:28] LABS: Bilirubin Urine NEGATIVE (NEGATIVE); Blood Urine NEGATIVE (NEGATIVE); Clarity Urine CLEAR (CLEAR); Color Urine LT. YELLOW (YELLOW); Glucose Urine UA >=1000 mg/dL (NEGATIVE); Ketones Urine NEGATIVE (NEGATIVE); Leukocyte Esterase Urine NEGATIVE (NEGATIVE); Nitrite Urine NEGATIVE (NEGATIVE); Protein Urine NEGATIVE (NEG/TRACE); Urobilinogen Urine 0.2 EU/dL (0.2-1.0)
[2023-07-29 17:32] LABS: Urine Microscopic Indicated NO
--- OUTSIDE RECORDS SUMMARY | 2023-07-29 18:52 | XMS_ITS | CCD ---
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 Name Role Phone KEISHA DROADO JR Attending Unavailable PATRICIA CORDERO Primary Care [...] DR WILLAMS Consulting Unavailable HOY ., DR IWLLAMS Attending Unavailable HOY ., DR WILLAMS Admitting [...] Admitting Unavailable DELBERT, UMAIR Referring Unavailable MERLE, LROEE Referring Unavailable GANGWANI, MANESH LARSON Referring Unavailab le GANGWANI, MANLAYNE LARSON Referring Unavailab luiza Bullimore, Magdalena E Attending Unavailable Elvin, Magdalena E Admitting Unavailable Екатерина Robert Primary Care Unavailable Allergies Allergy Classification Reported Allergen(s) Allergy Type Date of Onset Reaction(s) Facility (1 source) bee venom Drug allergy (disorder) 1 [facility] Repository (1 source) house dust allergenic extract; 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: [HOUSE DUST] Drug Allergy 4 [facility] Repository (1 source) HAY FEVER AND ALLERGY RELIEF; 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: [HAY FEVER AND ALLERGY RELIEF] Propensity to adverse reactions to drug (disorder) 4 [facility] Repository Medications Current Medications Medication Drug [...] oral solution (2 sources) alpha-Adrenergic Agonist, Uncompetitive [id number]-X-aspart ate Receptor Antagonist, Sigma-1 Agonist Start: 08-10-19 [...] day(s), # 14 tab(s), Refills(s) 0, Pharmacy: [facility], 170.2, cm, 08/09/22 13:13:00 EDT, Height/Length [...] day(s), # 15 tab(s), Refills(s) 0, Pharmacy: [facility], 170.2, cm, 08/09/22 13:13:00 EDT, Height/Length [...] disease (6 sources) Atherosclerotic heart disease of [place] coronary artery without angina pectoris; 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: [Old [...] 2 Chronic Other aftercare (1 source) Other custodial (current) drug therapy; 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: [OTH BALE PILER CURRENT DRUG THERAPY] Onset: 3 Episodic Other aftercare (1 source) 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; 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: [USP CURRENT USE OF ASPIRIN] Onset: 3 Episodic Other aftercare (1 source) jail (current) use of antithrombotics/antipl atelets; 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: [BALE PILER ANTITHROMBOT/ANTIPLATL ETS] Onset: 3 Episodic Other aftercare (1 source) 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 Tried calling pts ER contact but it is a food pantry and was only a VM option. Did not leave message. [facility] 07-11-2023 30 The patient is Moderately Stable - Low risk of patient condition declining or worsening The patient's goals for the shift include pain control The clinical goals for the shift include maintain pacemaker precautions Over the shift, the patient did not make progress toward the following goals. Barriers to progression include na. Recommendations to address these barriers include na. [facility] 30 The patient is Moderately Stable [...] safe level of function Outcome: Progressing Normal [facility] BASIC METABOLIC PANELon 06-15 Anion gap [Moles/Vol] 15 mmol/L Normal 7-20 [facility] Comment on above: Performed By: #### L [id number] #### [facility] ([facility]) [address] [place] [address] Calcium [Mass/Vol] 9.4 mg/dL Normal 8.6-10.3 [facility] Comment on above: Performed By: #### L [id number] #### [facility] ([facility]) [address] [place] [address] Chloride [Moles/Vol] 97 mmol/L Low 98-107 [facility] Comment on above: Performed By: #### L [id number] #### [facility] ([facility]) [address] [place] [address] CO2 [Moles/Vol] 27 mmol/L Normal 21-31 [facility] Comment on above: Performed By: #### L [id number] #### [facility] ([facility]) [address] [place] [address] Creatinine [Mass/Vol] 1.15 mg/dL Normal 0.60-1.20 [facility] Comment on above: Performed By: #### L [id number] #### [facility] ([facility]) [address] [place] [address] GLOMERULAR FILTRATION RATE ML/MIN/1.73 SQ M.PREDICTED 53.9 mL/min/1.73m*2 Low >60.0 [facility] Comment on above: Result Comment: The [facility]???s estimated glomerular filtration rate (eGFR) will no [...] individuals. Performed By: #### L [id number] #### [facility] ([facility]) [address] [place] [address] Glucose [Mass/Vol] 143 mg/dL High 70-100 [facility] Comment on above: Performed By: #### L [id number] #### [facility] ([facility]) [address] [place] [address] Potassium [Moles/Vol] 3.9 mmol/L Normal 3.5-5.1 [facility] Comment on above: Performed By: #### L [id number] #### [facility] ([facility]) [address] [place] [address] Sodium [Moles/Vol] 135 mmol/L Low 136-145 [facility] Comment on above: Performed By: #### L [id number] #### [facility] ([facility]) [address] [place] [address] Urea nitrogen [Mass/Vol] 32 mg/dL High 7-25 [facility] Comment on above: Performed By: #### L [id number] #### [facility] ([facility]) [address] [place] [address] UREA NITROGEN/CREATININE (MASS RATIO) IN SER/PLAS 27.8 Normal [facility] Comment on above: Performed By: #### L [id number] #### [facility] ([facility]) [address] [facility] [place] [address] CBC WITH AUTO DIFFERENTIALon 07-11-2023 Basophils (Bld) [#/Vol] 0.03 10*3/uL Normal 0.00-0.20 [facility] Comment on above: Performed By: #### L [id number] #### [facility] ([facility]) [address] [place] [address] Basophils/100 WBC (Bld) 0.3 % Normal 0.0-1.0 [facility] Comment on above: Performed By: #### L [id number] #### [facility] ([facility]) [address] [place] [address] Eosinophils (Bld) [#/Vol] 0.32 10*3/uL Normal 0.00-0.50 [facility] Comment on above: Performed By: #### L [id number] #### [facility] ([facility]) [address] [place] [address] Eosinophils/100 WBC (Bld) 2.8 % Normal 0.0-6.0 [facility] Comment on above: Performed By: #### L [id number] #### [facility] ([facility]) [address] [place] [address] Erythrocyte distribution width (RBC) [Ratio] 15.3 % High 11.5-15.0 [facility] Comment on above: Performed By: #### L [id number] #### [facility] ([facility]) [address] [place] [address] ERYTHROCYTE MEAN CORPUSCULAR HEMOGLOBIN CONCENTRATION (G/DL) BY AUTOMATED 32.0 g/dL Normal 32.0-35.0 [facility] Comment on above: Performed By: #### L [id number] #### [facility] ([facility]) [address] [place] [address] Hematocrit (Bld) [Volume fraction] 40.9 % Normal 36.0-48.0 [facility] Comment on above: Performed By: #### L [id number] #### [facility] ([facility]) [address] [place] [address] Hemoglobin (Bld) [Mass/Vol] 13.1 g/dL Normal 12.0-15.0 [facility] Comment on above: Performed By: #### L [id number] #### [facility] ([facility]) [address] [place] [address] Immature granulocytes (Bld) [#/Vol] 0.04 10*3/uL Normal 0.00-0.20 [facility] Comment on above: Performed By: #### L [id number] #### [facility] ([facility]) [address] [place] [address] Immature granulocytes/100 WBC (Bld) 0.3 % Normal 0.0-1.0 [facility] Comment on above: Performed By: #### L [id number] #### [facility] ([facility]) [address] [place] [address] Lymphocytes (Bld) [#/Vol] 3.16 10*3/uL Normal 1.20-4.00 [facility] Comment on above: Performed By: #### L [id number] #### [facility] ([facility]) [address] [place] [address] Lymphocytes/100 WBC (Bld) 27.4 % Normal 20.0-45.0 [facility] Comment on above: Performed By: #### L [id number] #### [facility] ([facility]) [address] [place] [address] MCH (RBC) [Entitic mass] 27.9 pg Normal 27.0-33.0 [facility] Comment on above: Performed By: #### L [id number] #### [facility] ([facility]) [address] [place] [address] MCV (RBC) [Entitic vol] 87.0 fL Normal 82.0-98.0 [facility] Comment on above: Performed By: #### L [id number] #### [facility] ([facility]) [address] [place] [address] Monocytes (Bld) [#/Vol] 0.85 10*3/uL Normal 0.10-1.00 [facility] Comment on above: Performed By: #### L [id number] #### [facility] ([facility]) [address] [place] [address] Monocytes/100 WBC (Bld) 7.4 % Normal 5.0-12.0 [facility] Comment on above: Performed By: #### L [id number] #### [facility] ([facility]) [address] [place] [address] Neutrophils (Bld) [#/Vol] 7.12 10*3/uL Normal 1.60-7.60 [facility] Comment on above: Performed By: #### L [id number] #### [facility] ([facility]) [address] [place] [address] Neutrophils/100 WBC (Bld) 61.8 % Normal 40.0-72.0 [facility] Comment on above: Performed By: #### L [id number] #### [facility] [address] [place] [address] NRBC (PER 100 WBCS) BY AUTOMATED COUNT 0.0 % Normal 0 [facility] Comment on above: Performed By: #### L [id number] #### [facility] [address] [place] [address] PLATELETS (10*3/UL) IN BLOOD AUTOMATED COUNT 339 10*3/uL Normal 150-400 [facility] Comment on above: Performed By: #### L [id number] #### [facility] ([facility]) [address] [place] [address] RBC (Bld) [#/Vol] 4.70 10*6/uL Normal 3.80-5.00 [facility] Comment on above: Performed By: #### L [id number] #### [facility] ([facility]) [address] [place] [address] WBC (Bld) [#/Vol] 11.52 10*3/uL High 4.00-10.60 [facility] Comment on above: Performed By: #### L [id number] #### [facility] ([facility]) [address] [place] [address] 30on 07-10-2023 30 Problem: Pain - Adul [...] complex ne (more content not included)... Normal [facility] 30 Daily Case Managemen t Update Multidisciplinary [...] Consultation Consultation and Management 07/06/23 1050 Normal [facility] 30 The patient is Moderately Stable [...] and behaviors that affect risk of falls [place] fall precautions as indicated by assessment Educate [...] and prevent overall improvement and discharge Normal [facility] BASIC METABOLIC PANELon 06-15 Anion gap [Moles/Vol] 13 mmol/L Normal 7-20 [facility] Comment on above: Performed By: #### L [id number] ####[facility] ([facility])[address] [place] [address] Calcium [Mass/Vol] 9.9 mg/dL Normal 8.6-10.3 [facility] Comment on above: Performed By: #### L [id number] ####[facility] ([facility])[address] [place] [address] Chloride [Moles/Vol] 97 mmol/L Low 98-107 [facility] Comment on above: Performed By: #### L [id number] ####[facility] ([facility])[address] [place] [address] CO2 [Moles/Vol] 30 mmol/L Normal 21-31 [facility] Comment on above: Performed By: #### L [id number] ####[facility] ([facility])[address] [place] [address] Creatinine [Mass/Vol] 1.06 mg/dL Normal 0.60-1.20 [facility] Comment on above: Performed By: #### L [id number] ####[facility] [place] [address] GLOMERULAR FILTRATION RATE ML/MIN/1.73 SQ M.PREDICTED 59.4 mL/min/1.73m*2 Low >60.0 [facility] Comment on above: Result Comment: The [facility]???s estimated glomerular filtration rate (eGFR) will no [...] of individuals. Performed By: #### L [id number] ####[facility] ([facility])[address] [place] [address] Glucose [Mass/Vol] 139 mg/dL High 70-100 [facility] Comment on above: Performed By: #### L [id number] ####[facility] ([facility])[address] [place] [address] Potassium [Moles/Vol] 3.9 mmol/L Normal 3.5-5.1 [facility] Comment on above: Performed By: #### L [id number] ####[facility] ([facility])[address] [place] [address] Sodium [Moles/Vol] 136 mmol/L Normal 136-145 [facility] Comment on above: Performed By: #### L [id number] ####[facility] [place] [address] Urea nitrogen [Mass/Vol] 23 mg/dL Normal 7-25 [facility] Comment on above: Performed By: #### L [id number] ####[facility] ([facility] [place] [address] UREA NITROGEN/CREATININE (MASS RATIO) IN SER/PLAS 21.7 Normal [facility] Comment on above: Performed By: #### L [id number] ####[facility] ([facility])[address] [place] [address] CBC WITH AUTO DIFFERENTIALon 07-10-2023 Basophils (Bld) [#/Vol] 0.02 10*3/uL Normal 0.00-0.20 [facility] Comment on above: Performed By: #### L [id number] ####[facility] ([facility])[address] [place] [address] Basophils/100 WBC (Bld) 0.2 % Normal 0.0-1.0 [facility] Comment on above: Performed By: #### L [id number] ####[facility] ([facility])[address] [place] [address] Eosinophils (Bld) [#/Vol] 0.53 10*3/uL High 0.00-0.50 [facility] Comment on above: Performed By: #### L [id number] ####[facility] ([facility])[address] [place] [address] Eosinophils/100 WBC (Bld) 5.0 % Normal 0.0-6.0 [facility] Comment on above: Performed By: #### L [id number] ####[facility] [place] [address] Erythrocyte distribution width (RBC) [Ratio] 15.3 % High 11.5-15.0 [facility] Comment on above: Performed By: #### L [id number] ####[facility] [place] [address] ERYTHROCYTE MEAN CORPUSCULAR HEMOGLOBIN CONCENTRATION (G/DL) BY AUTOMATED 32.9 g/dL Normal 32.0-35.0 [facility] Comment on above: Performed By: #### L [id number] ####[facility] ([facility])[address] [place] [address] Hematocrit (Bld) [Volume fraction] 42.6 % Normal 36.0-48.0 [facility] Comment on above: Performed By: #### L [id number] ####[facility] ([facility])[address] [place] [address] Hemoglobin (Bld) [Mass/Vol] 14.0 g/dL Normal 12.0-15.0 [facility] Comment on above: Performed By: #### L [id number] ####[facility] ([facility])[address] [place] [address] Immature granulocytes (Bld) [#/Vol] 0.02 10*3/uL Normal 0.00-0.20 [facility] Comment on above: Performed By: #### L [id number] ####[facility] ([facility])[address] [place] [address] Immature granulocytes/100 WBC (Bld) 0.2 % Normal 0.0-1.0 [facility] Comment on above: Performed By: #### L [id number] ####[facility] [place] [address] Lymphocytes (Bld) [#/Vol] 3.34 10*3/uL Normal 1.20-4.00 [facility] Comment on above: Performed By: #### L [id number] ####[facility] ([facility])[address] [place] [address] Lymphocytes/100 WBC (Bld) 31.7 % Normal 20.0-45.0 [facility] Comment on above: Performed By: #### L [id number] ####[facility] ([facility])[address] [place] [address] MCH (RBC) [Entitic mass] 28.3 pg Normal 27.0-33.0 [facility] Comment on above: Performed By: #### L [id number] ####[facility] ([facility])[address] [place] [address] MCV (RBC) [Entitic vol] 86.2 fL Normal 82.0-98.0 [facility] Comment on above: Performed By: #### L [id number] ####[facility] ([facility])[address] [place] [address] Monocytes (Bld) [#/Vol] 0.60 10*3/uL Normal 0.10-1.00 [facility] Comment on above: Performed By: #### L [id number] ####[facility] ([facility])[address] [place] [address] Monocytes/100 WBC (Bld) 5.7 % Normal 5.0-12.0 [facility] Comment on above: Performed By: #### L [id number] ####[facility] ([facility])[address] [place] [address] Neutrophils (Bld) [#/Vol] 6.01 10*3/uL Normal 1.60-7.60 [facility] Comment on above: Performed By: #### L [id number] ####[facility] ([facility])[address] [place] [address] Neutrophils/100 WBC (Bld) 57.2 % Normal 40.0-72.0 [facility] Comment on above: Performed By: #### L [id number] ####[facility] ([facility])[address] [place] [address] NRBC (PER 100 WBCS) BY AUTOMATED COUNT 0.0 % Normal 0 [facility] Comment on above: Performed By: #### L [id number] ####[facility] ([facility])[address] [place] [address] PLATELETS (10*3/UL) IN BLOOD AUTOMATED COUNT 329 10*3/uL Normal 150-400 [facility] Comment on above: Performed By: #### L [id number] ####[facility] ([facility])[address] [place] [address] RBC (Bld) [#/Vol] 4.94 10*6/uL Normal 3.80-5.00 [facility] Comment on above: Performed By: #### L [id number] ####[facility] ([facility])[address] [place] [address] WBC (Bld) [#/Vol] 10.52 10*3/uL Normal 4.00-10.60 [facility] Comment on above: Performed By: #### L [id number] ####[facility] ([facility])[address] [place] [address] HPon 07-10-2023 HP History Of Present Illness [...] Problems: Junctional bradycardia Pacemaker Loree Chance MD [facility] 30on 07-09-2023 30 Problem: Cardiovascular - [...] shift include pacemaker placement without issues Normal [facility] 30 Daily Case Managemen t Update Multidisciplinary [...] Consultation Consultation and Management 07/06/23 1050 Normal [facility] BASIC METABOLIC PANELon 06-15 Anion gap [Moles/Vol] 9 mmol/L Normal 7-20 [facility] Comment on above: Performed By: #### L [id number] #### [facility] ([facility]) [address] [place] [address] Calcium [Mass/Vol] 9.1 mg/dL Normal 8.6-10.3 [facility] Comment on above: Performed By: #### L [id number] #### [facility] ([facility]ER) [address] [place] [address] Chloride [Moles/Vol] 99 mmol/L Normal 98-107 [facility] Comment on above: Performed By: #### L [id number] #### [facility] ([facility]) [address] [place] [address] CO2 [Moles/Vol] 32 mmol/L High 21-31 [facility] Comment on above: Performed By: #### L [id number] #### [facility] ([facility]) [address] [place] [address] Creatinine [Mass/Vol] 0.98 mg/dL Normal 0.60-1.20 [facility] Comment on above: Performed By: #### L [id number] #### [facility] [address] [place] [address] GLOMERULAR FILTRATION RATE ML/MIN/1.73 SQ M.PREDICTED 65.3 mL/min/1.73m*2 Normal >60.0 [facility] Comment on above: Result Comment: [facility]???s estimated glomerular filtration rate (eGFR) will no [...] individuals. Performed By: #### L [id number] #### [facility] ([facility]) [address] [facility] [place] [address] Glucose [Mass/Vol] 131 mg/dL High 70-100 [facility] Comment on above: Performed By: #### L [id number] #### [facility] ([facility]) [address] [place] [address] Potassium [Moles/Vol] 4.3 mmol/L Normal 3.5-5.1 [facility] Comment on above: Performed By: #### L [id number] #### [facility] ([facility]) [address] [place] [address] Sodium [Moles/Vol] 136 mmol/L Normal 136-145 [facility] Comment on above: Performed By: #### L [id number] #### [facility] ([facility]) [address] [place] [address] Urea nitrogen [Mass/Vol] 23 mg/dL Normal 7-25 [facility] Comment on above: Performed By: #### L [id number] #### [facility] ([facility]) [address] [place] [address] UREA NITROGEN/CREATININE (MASS RATIO) IN SER/PLAS 23.5 Normal [facility] Comment on above: Performed By: #### L [id number] #### [facility] ([facility]) [address] [place] [address] CBC WITH AUTO DIFFERENTIALon 07-09-2023 Basophils (Bld) [#/Vol] 0.03 10*3/uL Normal 0.00-0.20 [facility] Comment on above: Performed By: #### L [id number] #### [facility] ([facility]) [address] [place] [address] Basophils/100 WBC (Bld) 0.3 % Normal 0.0-1.0 [facility] Comment on above: Performed By: #### L [id number] #### [facility] ([facility]) [address] [place] [address] Eosinophils (Bld) [#/Vol] 0.54 10*3/uL High 0.00-0.50 [facility] Comment on above: Performed By: #### L [id number] #### [facility] [address] [place] [address] Eosinophils/100 WBC (Bld) 4.9 % Normal 0.0-6.0 [facility] Comment on above: Performed By: #### L [id number] #### [facility] ([facility]) [address] [place] [address] Erythrocyte distribution width (RBC) [Ratio] 15.0 % Normal 11.5-15.0 [facility] Comment on above: Performed By: #### L [id number] #### [facility] ([facility]) [address] [place] [address] ERYTHROCYTE MEAN CORPUSCULAR HEMOGLOBIN CONCENTRATION (G/DL) BY AUTOMATED 32.8 g/dL Normal 32.0-35.0 [facility] Comment on above: Performed By: #### L [id number] #### [facility] ([facility]) [address] [place] [address] Hematocrit (Bld) [Volume fraction] 37.5 % Normal 36.0-48.0 [facility] Comment on above: Performed By: #### L [id number] #### [facility] ([facility]) [address] [place] [address] Hemoglobin (Bld) [Mass/Vol] 12.3 g/dL Normal 12.0-15.0 [facility] Comment on above: Performed By: #### L [id number] #### [facility] ([facility]) [address] [place] [address] Immature granulocytes (Bld) [#/Vol] 0.03 10*3/uL Normal 0.00-0.20 [facility] Comment on above: Performed By: #### L [id number] #### [facility] ([facility]) [address] [place] [address] Immature granulocytes/100 WBC (Bld) 0.3 % Normal 0.0-1.0 [facility] Comment on above: Performed By: #### L [id number] #### [facility] ([facility]) [address] [place] [address] Lymphocytes (Bld) [#/Vol] 3.76 10*3/uL Normal 1.20-4.00 [facility] Comment on above: Performed By: #### L [id number] #### [facility] ([facility]) [address] [place] [address] Lymphocytes/100 WBC (Bld) 34.1 % Normal 20.0-45.0 [facility] Comment on above: Performed By: #### L [id number] #### [facility] ([facility]) [address] [place] [address] MCH (RBC) [Entitic mass] 28.5 pg Normal 27.0-33.0 [facility] Comment on above: Performed By: #### L [id number] #### [facility] ([facility]) [address] [place] [address] MCV (RBC) [Entitic vol] 87.0 fL Normal 82.0-98.0 [facility] Comment on above: Performed By: #### L [id number] #### [facility] [address] [place] [address] Monocytes (Bld) [#/Vol] 0.64 10*3/uL Normal 0.10-1.00 [facility] Comment on above: Performed By: #### L [id number] #### [facility] ([facility]) [address] [place] [address] Monocytes/100 WBC (Bld) 5.8 % Normal 5.0-12.0 [facility] Comment on above: Performed By: #### L [id number] #### [facility] ([facility]) [address] [place] [address] Neutrophils (Bld) [#/Vol] 6.03 10*3/uL Normal 1.60-7.60 [facility] Comment on above: Performed By: #### L [id number] #### [facility] ([facility]) [address] [place] [address] Neutrophils/100 WBC (Bld) 54.6 % Normal 40.0-72.0 [facility] Comment on above: Performed By: #### L [id number] #### [facility] ([facility]) [address] [place] [address] NRBC (PER 100 WBCS) BY AUTOMATED COUNT 0.0 % Normal 0 [facility] Comment on above: Performed By: #### L [id number] #### [facility] ([facility]) [address] [place] [address] PLATELETS (10*3/UL) IN BLOOD AUTOMATED COUNT 285 10*3/uL Normal 150-400 [facility] Comment on above: Performed By: #### L [id number] #### [facility] ([facility]) [address] [place] [address] RBC (Bld) [#/Vol] 4.31 10*6/uL Normal 3.80-5.00 [facility] Comment on above: Performed By: #### L [id number] #### [facility] ([facility]) [address] [place] [address] WBC (Bld) [#/Vol] 11.03 10*3/uL High 4.00-10.60 [facility] Comment on above: Performed By: #### L [id number] #### [facility] ([facility]) [address] [place] [address] 30on 07-08-2023 30 The patient is Moderately [...] Maintains adequate nutritional intake Outcome: Progressing Normal [facility] 30 Problem: Cardiovascular - Adult Goal: Maintains [...] for the shift include stable bp Normal [facility] BASIC METABOLIC PANELon 06-15 Anion gap [Moles/Vol] 10 mmol/L Normal 7-20 [facility] Comment on above: Performed By: #### L [id number] ####[facility] (AKER)[address] [place] [address] Calcium [Mass/Vol] 9.0 mg/dL Normal 8.6-10.3 [facility] Comment on above: Performed By: #### L [id number] ####[facility] ([facility] [facility] [place] [address] Chloride [Moles/Vol] 97 mmol/L Low 98-107 [facility] Comment on above: Performed By: #### L [id number] ####[facility] ([facility])[address] [facility] [place] [address] CO2 [Moles/Vol] 33 mmol/L High 21-31 [facility] Comment on above: Performed By: #### L [id number] ####[facility] ([facility])[address] [place] [address] Creatinine [Mass/Vol] 1.30 mg/dL High 0.60-1.20 [facility] Comment on above: Performed By: #### L [id number] ####[facility] ([facility])[address] [place] [address] GLOMERULAR FILTRATION RATE ML/MIN/1.73 SQ M.PREDICTED 46.5 mL/min/1.73m*2 Low >60.0 [facility] Comment on above: Result Comment: The [facility]???s estimated glomerular filtration rate (eGFR) will no [...] of individuals. Performed By: #### L [id number] ####[facility] ([facility])[address] [place] [address] Glucose [Mass/Vol] 214 mg/dL High 70-100 [facility] Comment on above: Performed By: #### L [id number] ####[facility] ([facility])[address] [place] [address] Potassium [Moles/Vol] 3.9 mmol/L Normal 3.5-5.1 [facility] Comment on above: Performed By: #### L [id number] ####[facility] ([facility])[address] [place] [address] Sodium [Moles/Vol] 136 mmol/L Normal 136-145 [facility] Comment on above: Performed By: #### L [id number] ####[facility] ([facility])[address] [place] [address] Urea nitrogen [Mass/Vol] 26 mg/dL High 7-25 [facility] Comment on above: Performed By: #### L [id number] ####[facility] ([facility])[address] [place] [address] UREA NITROGEN/CREATININE (MASS RATIO) IN SER/PLAS 20.0 Normal [facility] Comment on above: Performed By: #### L [id number] ####[facility] ([facility])[address] [place] [address] CBC WITH AUTO DIFFERENTIALon 07-08-2023 Basophils (Bld) [#/Vol] 0.04 10*3/uL Normal 0.00-0.20 [facility] Comment on above: Performed By: #### L [id number] #### [facility] ([facility]) [address] [place] [address] Basophils/100 WBC (Bld) 0.3 % Normal 0.0-1.0 [facility] Comment on above: Performed By: #### L [id number] #### [facility] ([facility]) [address] [place] [address] Eosinophils (Bld) [#/Vol] 0.51 10*3/uL High 0.00-0.50 [facility] Comment on above: Performed By: #### L [id number] #### [facility] ([facility]) [address] [place] [address] Eosinophils/100 WBC (Bld) 4.1 % Normal 0.0-6.0 [facility] Comment on above: Performed By: #### L [id number] #### [facility] ([facility]) [address] [place] [address] Erythrocyte distribution width (RBC) [Ratio] 15.0 % Normal 11.5-15.0 [facility] Comment on above: Performed By: #### L [id number] #### [facility] ([facility]) [address] [place] [address] ERYTHROCYTE MEAN CORPUSCULAR HEMOGLOBIN CONCENTRATION (G/DL) BY AUTOMATED 31.9 g/dL Low 32.0-35.0 [facility] Comment on above: Performed By: #### L [id number] #### [facility] ([facility]) [address] [place] [address] Hematocrit (Bld) [Volume fraction] 37.9 % Normal 36.0-48.0 [facility] Comment on above: Performed By: #### L [id number] #### [facility] ([facility]) [address] [place] [address] Hemoglobin (Bld) [Mass/Vol] 12.1 g/dL Normal 12.0-15.0 [facility] Comment on above: Performed By: #### L [id number] #### [facility] ([facility]) [address] [place] [address] Immature granulocytes (Bld) [#/Vol] 0.04 10*3/uL Normal 0.00-0.20 [facility] Comment on above: Performed By: #### L [id number] #### [facility] [address] [place] [address] Immature granulocytes/100 WBC (Bld) 0.3 % Normal 0.0-1.0 [facility] Comment on above: Performed By: #### L [id number] #### [facility] ([facility]) [address] [place] [address] Lymphocytes (Bld) [#/Vol] 4.00 10*3/uL Normal 1.20-4.00 [facility] Comment on above: Performed By: #### L [id number] #### [facility] ([facility]) [address] [place] [address] Lymphocytes/100 WBC (Bld) 32.1 % Normal 20.0-45.0 [facility] Comment on above: Performed By: #### L [id number] #### [facility] ([facility]) [address] [place] [address] MCH (RBC) [Entitic mass] 28.1 pg Normal 27.0-33.0 [facility] Comment on above: Performed By: #### L [id number] #### [facility] ([facility]) [address] [place] [address] MCV (RBC) [Entitic vol] 87.9 fL Normal 82.0-98.0 [facility] Comment on above: Performed By: #### L [id number] #### [facility] ([facility] [address] [place] [address] Monocytes (Bld) [#/Vol] 0.85 10*3/uL Normal 0.10-1.00 [facility] Comment on above: Performed By: #### L [id number] #### [facility] ([facility]) [address] [place] [address] Monocytes/100 WBC (Bld) 6.8 % Normal 5.0-12.0 [facility] Comment on above: Performed By: #### L [id number] #### [facility] ([facility]) [address] [place] [address] Neutrophils (Bld) [#/Vol] 7.02 10*3/uL Normal 1.60-7.60 [facility] Comment on above: Performed By: #### L [id number] #### [facility] ([facility]) [address] [place] [address] Neutrophils/100 WBC (Bld) 56.4 % Normal 40.0-72.0 [facility] Comment on above: Performed By: #### L [id number] #### [facility] ([facility]) [address] [place] [address] NRBC (PER 100 WBCS) BY AUTOMATED COUNT 0.0 % Normal 0 [facility] Comment on above: Performed By: #### L [id number] #### [facility] ([facility]) [address] [place] [address] PLATELETS (10*3/UL) IN BLOOD AUTOMATED COUNT 301 10*3/uL Normal 150-400 [facility] Comment on above: Performed By: #### L [id number] #### [facility] [address] [place] [address] RBC (Bld) [#/Vol] 4.31 10*6/uL Normal 3.80-5.00 [facility] Comment on above: Performed By: #### L [id number] #### [facility] ([facility]) [address] [place] [address] WBC (Bld) [#/Vol] 12.46 10*3/uL High 4.00-10.60 [facility] Comment on above: Performed By: #### L [id number] #### [facility] ([facility]) [address] [place] [address] 30on 07-07-2023 30 The patient is Moderately Stable - Low risk of patient condition declining or worsening The patient's goals for the shift include comfort The clinical goals for the shift include vss Normal [facility] 30 Problem: Cardiovascular - Adult Goal: Maintains [...] comfort lev (more content not included)... Normal [facility] BASIC METABOLIC PANELon 02- Anion gap [Moles/Vol] 12 mmol/L Normal 7-20 [facility] Comment on above: Performed By: #### L [id number] #### [facility] ([facility]) [address] [place] [address] Calcium [Mass/Vol] 9.2 mg/dL Normal 8.6-10.3 [facility] Comment on above: Performed By: #### L [id number] #### [facility] ([facility]) [address] [place] [address] Chloride [Moles/Vol] 97 mmol/L Low 98-107 [facility] Comment on above: Performed By: #### L [id number] #### [facility] ([facility]) [address] [place] [address] CO2 [Moles/Vol] 31 mmol/L Normal 21-31 [facility] Comment on above: Performed By: #### L [id number] #### [facility] ([facility]) [address] [place] [address] Creatinine [Mass/Vol] 1.06 mg/dL Normal 0.60-1.20 [facility] Comment on above: Performed By: #### L [id number] #### [facility] ([facility]) [address] [place] [address] GLOMERULAR FILTRATION RATE ML/MIN/1.73 SQ M.PREDICTED 59.4 mL/min/1.73m*2 Low >60.0 [facility] Comment on above: Result Comment: The [facility]???s estimated glomerular filtration rate (eGFR) will no [...] individuals. Performed By: #### L [id number] #### [facility] ([facility]) [address] [place] [address] Glucose [Mass/Vol] 119 mg/dL High 70-100 [facility] Comment on above: Performed By: #### L [id number] #### [facility] ([facility]) [address] [place] [address] Potassium [Moles/Vol] 4.6 mmol/L Normal 3.5-5.1 [facility] Comment on above: Performed By: #### L [id number] #### [facility] ([facility]) [address] [place] [address] Sodium [Moles/Vol] 135 mmol/L Low 136-145 [facility] Comment on above: Performed By: #### L [id number] #### [facility] ([facility]) [address] [place] [address] Urea nitrogen [Mass/Vol] 21 mg/dL Normal 7-25 [facility] Comment on above: Performed By: #### L [id number] #### [facility] ([facility]) [address] [place] [address] UREA NITROGEN/CREATININE (MASS RATIO) IN SER/PLAS 19.8 Normal [facility] Comment on above: Performed By: #### L [id number] #### [facility] ([facility]) [address] [place] [address] CBC WITH AUTO DIFFERENTIALon 07-07-2023 Basophils (Bld) [#/Vol] 0.05 10*3/uL Normal 0.00-0.20 [facility] Comment on above: Performed By: #### L [id number] #### [facility] ([facility]) [address] [place] [address] Basophils/100 WBC (Bld) 0.3 % Normal 0.0-1.0 [facility] Comment on above: Performed By: #### L [id number] #### [facility] [address] [place] [address] Eosinophils (Bld) [#/Vol] 0.38 10*3/uL Normal 0.00-0.50 [facility] Comment on above: Performed By: #### L [id number] #### [facility] ([facility]) [address] [place] [address] Eosinophils/100 WBC (Bld) 2.5 % Normal 0.0-6.0 [facility] Comment on above: Performed By: #### L [id number] #### [facility] ([facility]) [address] [place] [address] Erythrocyte distribution width (RBC) [Ratio] 15.5 % High 11.5-15.0 [facility] Comment on above: Performed By: #### L [id number] #### [facility] ([facility]) [address] [place] [address] ERYTHROCYTE MEAN CORPUSCULAR HEMOGLOBIN CONCENTRATION (G/DL) BY AUTOMATED 32.0 g/dL Normal 32.0-35.0 [facility] Comment on above: Performed By: #### L [id number] #### [facility] ([facility]) [address] [place] [address] Hematocrit (Bld) [Volume fraction] 38.8 % Normal 36.0-48.0 [facility] Comment on above: Performed By: #### L [id number] #### [facility] ([facility]) [address] [place] [address] Hemoglobin (Bld) [Mass/Vol] 12.4 g/dL Normal 12.0-15.0 [facility] Comment on above: Performed By: #### L [id number] #### [facility] [address] [facility] [address] Immature granulocytes (Bld) [#/Vol] 0.05 10*3/uL Normal 0.00-0.20 [facility] Comment on above: Performed By: #### L [id number] #### [facility] ([facility] [address] [place] [address] Immature granulocytes/100 WBC (Bld) 0.3 % Normal 0.0-1.0 [facility] Comment on above: Performed By: #### L [id number] #### [facility] [address] [place] [address] Lymphocytes (Bld) [#/Vol] 3.99 10*3/uL Normal 1.20-4.00 [facility] Comment on above: Performed By: #### L [id number] #### [facility] ([facility]) [address] [place] [address] Lymphocytes/100 WBC (Bld) 26.5 % Normal 20.0-45.0 [facility] Comment on above: Performed By: #### L [id number] #### [facility] ([facility]) [address] [place] [address] MCH (RBC) [Entitic mass] 27.9 pg Normal 27.0-33.0 [facility] Comment on above: Performed By: #### L [id number] #### [facility] ([facility]) [address] [place] [address] MCV (RBC) [Entitic vol] 87.4 fL Normal 82.0-98.0 [facility] Comment on above: Performed By: #### L [id number] #### [facility] ([facility]) [address] [place] [address] Monocytes (Bld) [#/Vol] 1.25 10*3/uL High 0.10-1.00 [facility] Comment on above: Performed By: #### L [id number] #### [facility] [address] [place] [address] Monocytes/100 WBC (Bld) 8.3 % Normal 5.0-12.0 [facility] Comment on above: Performed By: #### L [id number] #### [facility] [address] [place] [address] Neutrophils (Bld) [#/Vol] 9.31 10*3/uL High 1.60-7.60 [facility] Comment on above: Performed By: #### L [id number] #### [facility] ([facility]) [address] [place] [address] Neutrophils/100 WBC (Bld) 62.1 % Normal 40.0-72.0 [facility] Comment on above: Performed By: #### L [id number] #### [facility] ([facility]) [address] [place] [address] NRBC (PER 100 WBCS) BY AUTOMATED COUNT 0.0 % Normal 0 [facility] Comment on above: Performed By: #### L [id number] #### [facility] ([facility]) [address] [place] [address] PLATELETS (10*3/UL) IN BLOOD AUTOMATED COUNT 300 10*3/uL Normal 150-400 [facility] Comment on above: Performed By: #### L [id number] #### [facility] ([facility]) [address] [place] [address] RBC (Bld) [#/Vol] 4.44 10*6/uL Normal 3.80-5.00 [facility] Comment on above: Performed By: #### L [id number] #### [facility] ([facility]) [address] [place] [address] WBC (Bld) [#/Vol] 15.03 10*3/uL High 4.00-10.60 [facility] Comment on above: Performed By: #### L [id number] #### [facility] ([facility]) [address] [place] [address] MAGNESIUMon 07-07-2023 Magnesium [Mass/Vol] 2.3 mg/dL Normal 1.9-2.7 [facility] Comment on above: Performed By: #### L [id number] #### [facility] ([facility]) [address] [place] [address] 30on 07-06-2023 30 Daily Case Managemen t [...] of Consultation Consultation and Management 07/06/23 1050 [facility] 30 The patient is Moderately Stable [...] monitored and maintained or improved Outcome: Progressing [facility] 30 The patient is Moderately Stable - Low risk of patient condition declining or worsening The patient's goals for the shift include comfort The clinical goals for the shift include VSS [facility] 30 The patient is Moderately Stable - Low risk of patient condition declining or worsening The patient's goals for the shift include comfort The clinical goals for the shift include VSS [facility] APTTon 07-06-2023 ACTIVATED PARTIAL THROMBOPLASTIN TIME IN PPP BY COAGULATION ASSAY 25.3 Seconds Normal 25.0-35.0 [facility] Comment on above: Result Comment: Clin ical significance of the APTT is questionable in the presence of heparin. Performed By: #### L [id number] #### [facility] ([facility]) [address] [place] [address] B-TYPE NATRIURETIC PEPTIDEon 07-06-2023 Natriuretic peptide B (Bld) [Mass/Vol] 721 pg/mL High 0-100 [facility] Comment on above: Performed By: #### L [id number] #### [facility] ([facility]) [address] [facility] [place] [address] BLOOD CULTUREon 07-06-2023 Bacteria identified Cx Nom (Bld) No growth at 5 days Normal [facility] Comment on above: Performed By: #### L [id number] ####[facility] ([facility])[address] [place] [address] Order Comment: From a different site than #1. Performed By: #### L [id number] #### [facility] ([facility]) [address] [place] [address] CBC WITH AUTO DIFFERENTIALon 07-06-2023 Basophils (Bld) [#/Vol] 0.03 10*3/uL Normal 0.00-0.20 [facility] Comment on above: Performed By: #### L [id number] ####[facility] ([facility])[address] [place] [address] Basophils/100 WBC (Bld) 0.2 % Normal 0.0-1.0 [facility] Comment on above: Performed By: #### L [id number] ####[facility] ([facility])[address] [place] [address] Eosinophils (Bld) [#/Vol] 0.11 10*3/uL Normal 0.00-0.50 [facility] Comment on above: Performed By: #### L [id number] ####[facility] ([facility])[address] [facility] [place] [address] Eosinophils/100 WBC (Bld) 0.8 % Normal 0.0-6.0 [facility] Comment on above: Performed By: #### L [id number] ####[facility] ([facility])[address] [place] [address] Erythrocyte distribution width (RBC) [Ratio] 15.1 % High 11.5-15.0 [facility] Comment on above: Performed By: #### L [id number] ####[facility] ([facility])[address] [place] [address] ERYTHROCYTE MEAN CORPUSCULAR HEMOGLOBIN CONCENTRATION (G/DL) BY AUTOMATED 32.3 g/dL Normal 32.0-35.0 [facility] Comment on above: Performed By: #### L [id number] ####[facility] ([facility])[address] [place] [address] Hematocrit (Bld) [Volume fraction] 39.0 % Normal 36.0-48.0 [facility] Comment on above: Performed By: #### L [id number] ####[facility] ([facility])[address] [place] [address] Hemoglobin (Bld) [Mass/Vol] 12.6 g/dL Normal 12.0-15.0 [facility] Comment on above: Performed By: #### L [id number] ####[facility] ([facility])[address] [place] [address] Immature granulocytes (Bld) [#/Vol] 0.04 10*3/uL Normal 0.00-0.20 [facility] Comment on above: Performed By: #### L [id number] ####[facility] ([facility])[address] [place] [address] Immature granulocytes/100 WBC (Bld) 0.3 % Normal 0.0-1.0 [facility] Comment on above: Performed By: #### L [id number] ####[facility] ([facility])[address] [place] [address] Lymphocytes (Bld) [#/Vol] 2.75 10*3/uL Normal 1.20-4.00 [facility] Comment on above: Performed By: #### L [id number] ####[facility] ([facility])[address] [place] [address] Lymphocytes/100 WBC (Bld) 19.1 % Low 20.0-45.0 [facility] Comment on above: Performed By: #### L [id number] ####[facility] ([facility])[address] [place] [address] MCH (RBC) [Entitic mass] 27.9 pg Normal 27.0-33.0 [facility] Comment on above: Performed By: #### L [id number] ####[facility] ([facility])[address] [place] [address] MCV (RBC) [Entitic vol] 86.5 fL Normal 82.0-98.0 [facility] Comment on above: Performed By: #### L [id number] ####[facility] ([facility])[address] [place] [address] Monocytes (Bld) [#/Vol] 1.31 10*3/uL High 0.10-1.00 [facility] Comment on above: Performed By: #### L [id number] ####[facility] ([facility])[address] [place] [address] Monocytes/100 WBC (Bld) 9.1 % Normal 5.0-12.0 [facility] Comment on above: Performed By: #### L [id number] ####[facility] ([facility])[address] [place] [address] Neutrophils (Bld) [#/Vol] 10.18 10*3/uL High 1.60-7.60 [facility] Comment on above: Performed By: #### L [id number] ####[facility] ([facility])[address] [place] [address] Neutrophils/100 WBC (Bld) 70.5 % Normal 40.0-72.0 [facility] Comment on above: Performed By: #### L [id number] ####[facility] [place] [address] NRBC (PER 100 WBCS) BY AUTOMATED COUNT 0.0 % Normal 0 [facility] Comment on above: Performed By: #### L [id number] ####[facility] [place] [address] PLATELETS (10*3/UL) IN BLOOD AUTOMATED COUNT 321 10*3/uL Normal 150-400 [facility] Comment on above: Performed By: #### L [id number] ####[facility] ([facility])[address] [place] [address] RBC (Bld) [#/Vol] 4.51 10*6/uL Normal 3.80-5.00 [facility] Comment on above: Performed By: #### L [id number] ####[facility] ([facility])[address] [place] [address] WBC (Bld) [#/Vol] 14.42 10*3/uL High 4.00-10.60 [facility] Comment on above: Performed By: #### L [id number] ####[facility] ([facility])[address] [place] [address] CKon 07-06-2023 CREATINE KINASE (U/L) IN SER/PLAS 36.0 U/L Normal 30.0-223.0 [facility] Comment on above: Performed By: #### L [id number] #### [facility] [address] [place] [address] COMPREHENSIVE METABOLIC PANE Pollo 07-06-2023 Albumin [Mass/Vol] 4.6 g/dL Normal 3.5-5.7 [facility] Comment on above: Performed By: #### L [id number] #### [facility] ([facility]) [address] [place] [address] ALP [Catalytic activity/Vol] 47 U/L Normal 34-104 [facility] Comment on above: Performed By: #### L [id number] #### [facility] (BEAKER) [address] [place] [address] ALT [Catalytic activity/Vol] 13 U/L Normal 7-52 [facility] Comment on above: Performed By: #### L [id number] #### [facility] (BEAKER) [address] [place] [address] Anion gap [Moles/Vol] 14 mmol/L Normal 7-20 [facility] Comment on above: Performed By: #### L [id number] #### [facility] ([facility] [address] [place] [address] AST [Catalytic activity/Vol] 17 U/L Normal 13-39 [facility] Comment on above: Performed By: #### L [id number] #### [facility] ([facility] [address] [place] [address] Bilirubin [Mass/Vol] 0.5 mg/dL Normal 0.3-1.0 [facility] Comment on above: Performed By: #### L [id number] #### [facility] ([facility] [address] [place] [address] Calcium [Mass/Vol] 8.9 mg/dL Normal 8.6-10.3 [facility] Comment on above: Performed By: #### L [id number] #### [facility] (BEAKER) [address] [place] [address] Chloride [Moles/Vol] 98 mmol/L Normal 98-107 [facility] Comment on above: Performed By: #### L [id number] #### [facility] (BEAKER) [address] [place] [address] CO2 [Moles/Vol] 28 mmol/L Normal 21-31 [facility] Comment on above: Performed By: #### L [id number] #### [facility] (BEAKER) [address] [place] [address] Creatinine [Mass/Vol] 1.23 mg/dL High 0.60-1.20 [facility] Comment on above: Performed By: #### L [id number] #### [facility] ([facility]) [address] [place] [address] GLOMERULAR FILTRATION RATE ML/MIN/1.73 SQ M.PREDICTED 49.7 mL/min/1.73m*2 Low >60.0 [facility] Comment on above: Result Comment: [facility]???s estimated glomerular filtration rate (eGFR) will no [...] individuals. Performed By: #### L [id number] #### [facility] ([facility]) [address] [place] [address] Glucose [Mass/Vol] 119 mg/dL High 70-100 [facility] Comment on above: Performed By: #### L [id number] #### [facility] ([facility]) [address] [place] [address] Potassium [Moles/Vol] 4.6 mmol/L Normal 3.5-5.1 [facility] Comment on above: Performed By: #### L [id number] #### [facility] ([facility]) [address] [place] [address] Protein [Mass/Vol] 6.8 g/dL Normal 6.0-8.3 [facility] Comment on above: Performed By: #### L [id number] #### [facility] ([facility]) [address] [place] [address] Sodium [Moles/Vol] 135 mmol/L Low 136-145 [facility] Comment on above: Performed By: #### L [id number] #### [facility] ([facility]) [address] [place] [address] Urea nitrogen [Mass/Vol] 23 mg/dL Normal 7-25 [facility] Comment on above: Performed By: #### L [id number] #### [facility] ([facility]) [address] [place] [address] UREA NITROGEN/CREATININE (MASS RATIO) IN SER/PLAS 18.7 Normal [facility] Comment on above: Performed By: #### L [id number] #### [facility] ([facility]) [address] [place] [address] CONSULTon 07-06-2023 CONSULT - Attestation signed by [...] of bradycardia. Patient has been transferred to [facility] for consideration of pacemaker placement. As [...] -- -- 7 (more content not included)... [facility] ED Clinical Summaryon 2023 ED Clinical Summary [place] [id number] ED Clinical Summary Person Information Name: VIVIAN VANN/[place] Age: 63 Years : 1960 Sex: Female Language: Greenlandic PCP: Екатерина Robert MD Marital Status: Phone: [...] 07/05/2023 22:16:25 07/05/2023 22:16:25 07/05/2023 22:16:25 ADDRESS: [facility] [id number] PHYS DOC NOTES: MEDICAL INFORMATION: Prescriptions Given: [...] 3:Tobacco abuse; 4:CHF (congestive heart failure) Normal [facility] ED Patient Education Noteon 07-06-2023 ED Patient Education Note Normal [facility] ED Patient Summaryon 024 ED Patient Summary [place] [id number] Patient Discharge Instructions Person Information Name: VIVIAN VANN Age: 63 Years Arrival Date: 07/05/2023 15:01:40 Discharge Diagnosis: 1:Atrial fibrillation with slow ventricular response; 2:Elevated troponin; 3:Tobacco abuse; 4:CHF (congestive heart failure) Primary Care Physician: Екатерина Robert MD Provider Information Primary Provider: Arsenio Martin DO [facility] [employer] Blasting:None The exam and treatment you received in the Emergency Department were for an urgent problem and are not intended as complete care. It is important that you follow up with a doctor, nurse practitioner, or physician?s placement assistant for ongoing care. If your symptoms [...] opioids can be used to help relieve wtngjwdc-rz-hmjlwt pain and are often prescribed following a [...] be struggling with addiction, tell your health animal care attendant and ask for guidance or call [facility]?S National Helpline at 5-787-561-CKYI. o Source: [place] Department of Health and Human Services/Center for Disease Control & Preve (more content not included)... Normal [facility] ETHANOLon 07-06-2023 ETHANOL (MG/DL) IN SER/PLAS <10 Normal [facility] Comment on above: Performed By: #### L [id number] #### [facility] ([facility]) [address] [place] [address] ETHANOL CALCULATED (%) Normal [facility] Comment on above: Performed By: #### L [id number] #### [facility] ([facility] [address] [place] [address] HEMOGLOBIN A1Con 07-06-2023 Glucose [Mass/Vol] 148 mg/dL Normal [facility] Comment on above: Performed By: #### L [id number] #### [facility] ([facility] [address] [place] [address] HbA1c (Bld) [Mass fraction] 6.8 % High 4.0-6.0 [facility] Comment on above: Performed By: #### L [id number] #### [facility] ([facility] [address] [place] [address] LACTIC ACID WITH 4 HOUR REFL EXon 07-06-2023 LACTATE (MMOL/L) IN SER/PLAS 1.8 mmol/L Normal 0.5-2.2 [facility] Comment on above: Performed By: #### L [id number] #### [facility] ([facility]) [address] [place] [address] LIPID PANELon 07-06-2023 CHOL/HDL 3.0 mg/dL Normal [facility] Comment on above: Performed By: #### L [id number] #### [facility] ([facility]) [address] [place] [address] Cholesterol [Mass/Vol] 143 mg/dL Normal 120-200 [facility] Comment on above: Performed By: #### L [id number] #### [facility] ([facility]) [address] [place] [address] Magnesium [Mass/Vol] 159 mg/dL High 40-149 [facility] Comment on above: Result Comment: TRIG LYCERIDE REFERENCE RANGE: 20 YEARS AND OLDER CARDIOVASCULAR RISK LESS THAN 150 mg/dL LOW RISK 150 TO 199 mg/dL BORDERLINE RISK 200 mg/dL AND GREATER HIGH RISK Performed By: #### L [id number] #### [facility] ([facility]) [address] [place] [address] Magnesium [Mass/Vol] 63 mg/dL Normal 0-160 [facility] Comment on above: Performed By: #### L [id number] #### [facility] ([facility]) [address] [place] [address] Magnesium [Mass/Vol] 48 mg/dL Normal 23-92 [facility] Comment on above: Performed By: #### L [id number] #### [facility] ([facility]) [address] [place] [address] NON HDL CHOL. (LDL+VLDL) 95 Normal [facility] Comment on above: Performed By: #### L [id number] #### [facility] ([facility]) [address] [place] [address] TOTAL VLDL-C 32 mg/dL Normal 0-40 [facility] Comment on above: Performed By: #### L [id number] #### [facility] ([facility]) [address] [place] [address] MAGNESIUMon 07-06-2023 Magnesium [Mass/Vol] 2.2 mg/dL Normal 1.9-2.7 [facility] Comment on above: Performed By: #### L [id number] #### [facility] ([facility]) [address] [facility] [place] [address] PHOSPHORUSon 07-06-2023 Magnesium [Mass/Vol] 5.2 mg/dL High 2.5-5.0 [facility] Comment on above: Performed By: #### L [id number] #### [facility] ([facility]) [address] [place] [address] PROTIME-INRon 07-06-2023 INR IN PPP BY COAGULATION ASSAY 1.00 Normal 0.90-1.10 [facility] Comment on above: Result Comment: [facility] P RECOMMENDED INR FOR WARFARIN THERAPY [...] 1995;108:[id number]-246S. Performed By: #### L [id number] #### [facility] ([facility]) [address] [place] [address] PROTHROMBIN TIME (PT) IN PPP BY COAGULATION ASSAY 13.2 Seconds Normal 12.3-14.8 [facility] Comment on above: Performed By: #### L [id number] #### [facility] ([facility]) [address] [place] [address] TOXICOLOGY PANEL URINEon AMPHETAMINE+METHAMPHET AMINE SCREEN (PRESENCE) IN URINE Negative Normal Negative [facility] Comment on above: Performed By: #### L [id number] #### [facility] ([facility]) [address] [place] [address] BARBITURATES PRESENCE IN URINE BY SCREEN METHOD Negative Normal Negative [facility] Comment on above: Performed By: #### L [id number] #### [facility] (BEAKER) [address] [place] [address] Benzodiazepines Ql (U) Positive Abnormal Negative [facility] Comment on above: Performed By: #### L [id number] #### [facility] ([facility]) [address] [place] [address] CANNABINOID (PRESENCE) IN URINE BY SCREEN METHOD Positive Abnormal Negative [facility] Comment on above: Performed By: #### L [id number] #### [facility] ([facility]) [address] [place] [address] Cocaine Ql (U) Negative Normal Negative [facility] Comment on above: Performed By: #### L [id number] #### [facility] [address] [place] [address] METHADONE (PRESENCE) IN URINE BY SCREEN METHOD Negative Normal Negative [facility] Comment on above: Performed By: #### L [id number] #### [facility] ([facility]) [address] [place] [address] OPIATES (PRESENCE) IN URINE BY SCREEN METHOD Negative Normal Negative [facility] Comment on above: Performed By: #### L [id number] #### [facility] ([facility]) [address] [place] [address] PHENCYCLIDINE PRESENCE IN URINE BY SCREEN METHOD Negative Normal Negative [facility] Comment on above: Performed By: #### L [id number] #### [facility] (BEAKER) [address] [place] [address] Propoxyphene Screen Ql (U) Negative Normal Negative [facility] Comment on above: Performed By: #### L [id number] #### [facility] (BEAKER) [address] [place] [address] TRICYCLIC ANTIDEPRESSANTS (PRESENCE) IN URINE Positive Abnormal Negative [facility] Comment on above: Performed By: #### L [id number] #### [facility] (BEAKER) [address] [place] [address] TROPONIN Ion 07-06-2023 Troponin I.cardiac [Mass/Vol] 0.12 ng/mL Critically high 0.00-0.04 [facility] Comment on above: Result Comment: M-SC EVIOUS CRITICAL RESULT Previous result verified on 07/06/2023 1236 on specimen/case [id number] called with component Troponin I for procedure Troponin I with value 0.11 ng/mL. Performed By: #### L [id number] #### [facility] ([facility]) [address] [place] [address] Troponin I.cardiac [Mass/Vol] 0.11 ng/mL Critically high 0.00-0.04 [facility] Comment on above: Result Comment: M-SC EVIOUS CRITICAL RESULT Previous result verified on 07/06/2023 0444 on specimen/case [id number] called with component Troponin I for procedure Troponin I with value 0.12 ng/mL. Performed By: #### L [id number] #### [facility] ([facility]) [address] [place] [address] Troponin I.cardiac [Mass/Vol] 0.12 ng/mL Critically high 0.00-0.04 [facility] Comment on above: Result Comment: M-CR ITICAL RESULT(S) REVIEWED, CALLED TO AND READ BACK BY PRIYANKA LEOS RN AT 0442 M-TROPONIN INITIAL CRITICAL HIGH; RESPUN AND RETESTED Performed By: #### L [id number] #### [facility] ([facility]) [address] [place] [address] TSH3 REFLEX TO FT4on 024 THYROTROPIN (MIU/L) IN SER/PLAS BY DETECTION LIMIT <= 0.05 MIU/L 4.25 mIU/L Normal 0.34-5.60 [facility] Comment on above: Performed By: #### L [id number] #### [facility] ([facility]) [address] [place] [address] Transfer Documentson 024 Transfer Documents [id number]# 1.00TIFF Normal [facility] URINALYSIS WITH REFLEX CULTU REon 07-06-2023 BILIRUBIN, TOTAL PRESENCE IN URINE Negative Normal Negative [facility] Comment on above: Order Comment: Micro scopics not performed on urines with negative chemical reactions unless requested on original order. Performed By: #### L [id number] #### [facility] (BEAKER) [address] [place] [address] Clarity (U) Clear Normal Clear [facility] Comment on above: Order Comment: Micro scopics not performed on urines with negative chemical reactions unless requested on original order. Performed By: #### L [id number] #### [facility] (BEAKER) [address] [place] [address] Color (U) Yellow Normal Yellow [facility] Comment on above: Order Comment: Micro scopics not performed on urines with negative chemical reactions unless requested on original order. Performed By: #### L [id number] #### [facility] (BEAKER) [address] [place] [address] Glucose (U) [Mass/Vol] mg/dL Abnormal Negative [facility] Comment on above: Order Comment: Micro scopics not performed on urines with negative chemical reactions unless requested on original order. Performed By: #### L [id number] #### [facility] (BEAKER) [address] [place] [address] HEMOGLOBIN PRESENCE IN URINE Negative Normal Negative [facility] Comment on above: Order Comment: Micro scopics not performed on urines with negative chemical reactions unless requested on original order. Performed By: #### L [id number] #### [facility] (BEAKER) [address] [place] [address] Ketones Ql (U) Negative Normal Negative [facility] Comment on above: Order Comment: Micro scopics not performed on urines with negative chemical reactions unless requested on original order. Performed By: #### L [id number] #### [facility] (BEAKER) [address] [place] [address] LEUKOCYTE ESTERASE PRESENCE IN URINE BY TEST STRIP Negative Normal Negative [facility] Comment on above: Order Comment: Micro scopics not performed on urines with negative chemical reactions unless requested on original order. Performed By: #### L [id number] #### [facility] ([facility]) [address] [place] [address] NITRITE PRESENCE IN URINE Negative Normal Negative [facility] Comment on above: Order Comment: Micro scopics not performed on urines with negative chemical reactions unless requested on original order. Performed By: #### L [id number] #### [facility] ([facility]) [address] [place] [address] pH (U) 6.0 [pH] Normal 5.0-8.0 [facility] Comment on above: Order Comment: Micro scopics not performed on urines with negative chemical reactions unless requested on original order. Performed By: #### L [id number] #### [facility] ([facility]) [address] [place] [address] Protein (U) [Mass/Vol] Negative Normal Negative [facility] Comment on above: Order Comment: Micro scopics not performed on urines with negative chemical reactions unless requested on original order. Performed By: #### L [id number] #### [facility] ([facility]) [address] [place] [address] Specific gravity (U) [Rel density] 1.013 Low 1.015-1.020 [facility] Comment on above: Order Comment: Micro scopics not performed on urines with negative chemical reactions unless requested on original order. Performed By: #### L [id number] #### [facility] ([facility]) [address] [place] [address] BILIRUBIN, TOTAL PRESENCE IN URINE Negative Normal Negative [facility] Comment on above: Order Comment: Micro scopics not performed on urines with negative chemical reactions unless requested on original order. Performed By: #### L [id number] #### [facility] ([facility]) [address] [place] [address] Clarity (U) Clear Normal Clear [facility] Comment on above: Order Comment: Micro scopics not performed on urines with negative chemical reactions unless requested on original order. Performed By: #### L [id number] #### [facility] ([facility]) [address] [place] [address] Color (U) Yellow Normal Yellow [facility] Comment on above: Order Comment: Micro scopics not performed on urines with negative chemical reactions unless requested on original order. Performed By: #### L [id number] #### [facility] ([facility]) [address] [place] [address] Glucose (U) [Mass/Vol] mg/dL Abnormal Negative [facility] above: Order Comment: Micro scopics not performed on urines with negative chemical reactions unless requested on original order. Performed By: #### L [id number] #### [facility] ([facility]) [address] [place] [address] HEMOGLOBIN PRESENCE IN URINE Negative Normal Negative [facility] Comment on above: Order Comment: Micro scopics not performed on urines with negative chemical reactions unless requested on original order. Performed By: #### L [id number] #### [facility] ([facility]) [address] [place] [address] Ketones Ql (U) Negative Normal Negative [facility] Comment on above: Order Comment: Micro scopics not performed on urines with negative chemical reactions unless requested on original order. Performed By: #### L [id number] #### [facility] ([facility]) [address] [place] [address] LEUKOCYTE ESTERASE PRESENCE IN URINE BY TEST STRIP Negative Normal Negative [facility] Comment on above: Order Comment: Micro scopics not performed on urines with negative chemical reactions unless requested on original order. Performed By: #### L [id number] #### [facility] ([facility]) [address] [place] [address] NITRITE PRESENCE IN URINE Negative Normal Negative [facility] Comment on above: Order Comment: Micro scopics not performed on urines with negative chemical reactions unless requested on original order. Performed By: #### L [id number] #### [facility] ([facility]) [address] [place] [address] pH (U) 6.0 [pH] Normal 5.0-8.0 [facility] Comment on above: Order Comment: Micro scopics not performed on urines with negative chemical reactions unless requested on original order. Performed By: #### L [id number] #### [facility] ([facility]) [address] [place] [address] Protein (U) [Mass/Vol] Negative Normal Negative [facility] Comment on above: Order Comment: Micro scopics not performed on urines with negative chemical reactions unless requested on original order. Performed By: #### L [id number] #### [facility] ([facility] [address] [facility] [address] Specific gravity (U) [Rel density] 1.017 Normal 1.015-1.020 [facility] Comment on above: Order Comment: Micro scopics not performed on urines with negative chemical reactions unless requested on original order. Performed By: #### L [id number] #### [facility] [address] [place] [address] BMPon 07-05-2023 Anion gap [Moles/Vol] 15 mmol/L Normal 6-16 [facility] Comment on above: Performed By: #### 1 [id number], 9058407, 79233571, 57064090, 8045634, 42660634, 3243660, 3373943, 1111342, 3129992 ####[facility] [address] [place] [address] BUN/Creat Ratio 15 No Units Normal 10-[address] [facility] Comment on above: Performed By: #### 1 1052895, 8108012, 02572880, 24887666, 9653251, 91969943, 0867666, 2665842, 2310238, 4109807 ####[facility] [address] [place] [address] Calcium [Mass/Vol] 10.1 mg/dL Normal 8.9-11.1 [facility] Comment on above: Performed By: #### 1 [id number], 4827469, 84850527, 22610427, 8004009, 09531904, 6541451, 3498979, 4808149, 9336937 ####[facility] [address] [place] [address] Chloride [Moles/Vol] 96 mmol/L Low 101-111 [facility] Comment on above: Performed By: #### 1 3052727, 1597722, 73828071, 17029575, 8083612, 61873656, 2918516, 1427125, 6695994, 6805850 ####[facility] [address] [place] [address] CO2 [Moles/Vol] 32 mmol/L High 21-31 [facility] Comment on above: Performed By: #### 1 8836436, 0678967, 91479289, 22313241, 7594623, 62686003, 6320482, 7016859, 6141285, 3109942 ####[facility] [address] [place] [address] Creatinine [Mass/Vol] 1.5 mg/dL High 0.5-1.3 [facility] Comment on above: Performed By: #### 1 1260235, 0790157, 78225905, 00312952, 9980434, 03148921, 1614484, 5761402, 1050449, 8980967 ####[facility] [address] [place] [address] Glucose [Mass/Vol] 147 mg/dL Normal 55-199 [facility] Comment on above: Performed By: #### 1 2700096, 2135150, 28798721, 69093707, 9518972, 98300089, 4764472, 2809117, 8032227, 4095416 ####[facility] [address] [place] [address] Potassium [Moles/Vol] 5.1 mmol/L Normal 3.5-5.3 [facility] Comment on above: Performed By: #### 1 7996411, 3213217, 25116148, 80608122, 1610384, 07700897, 4279367, 4106957, 6934890, 6113235 ####[facility] [address] [place] [address] Sodium [Moles/Vol] 138 mmol/L Normal 135-145 [facility] Comment on above: Performed By: #### 1 7009881, 7365192, 72844346, 95693372, 6896310, 95373380, 0361455, 1889834, 6263126, 6762663 ####[place] [address] [place] [address] Urea nitrogen [Mass/Vol] 22 mg/dL High 5-21 [facility] Comment on above: Performed By: #### 1 2025779, 8106687, 95358197, 35131050, 9005887, 36929818, 7672270, 9901476, 8573711, 0560928 ####[address] [address] BNPon 07-05-2023 Natriuretic peptide B (Bld) [Mass/Vol] 508 pg/mL High 5-80 [facility] Comment on above: Performed By: #### 1 6380066, 4720124, 43418084, 87290605, 7961967, 22900269, 8569877, 3684670, 7591960, 2208848 ####[address] [address] CBC w/ Auto Diffon 4 Basophil Absolute 0.1 E9/L Normal 0.0-0.2 [facility] Comment on above: Performed By: #### 1 6763312, 4599948, 85319265, 69468957, 7890893, 77635869, 4520441, 0648047, 0351913, 9902307 ####[facility] [address] [place] [address] Basophils/100 WBC (Bld) 0.7 % Normal 0.0-2.0 [facility] Comment on above: Performed By: #### 1 3098719, 1176983, 13317791, 53131894, 5236797, 48356809, 0251794, 6641487, 5182819, 7708002 ####[facility] [address] [place] [address] Eos Absolute 0.4 E9/L Normal 0.0-0.5 [facility] Comment on above: Performed By: #### 1 0143790, 1610926, 49689016, 14190986, 5340339, 23098123, 9572437, 1844247, 0055439, 8522681 ####[place] [address] [place] [address]457 Eosinophils/100 WBC (Bld) 3.7 % Normal 0.0-8.0 [facility] Comment on above: Performed By: #### 1 2819312, 1137122, 82183728, 81924734, 3040350, 02049258, 1763761, 0735223, 3082780, 4459344 ####[place] [address] Erythrocyte distribution width (RBC) [Ratio] 16.8 % High 10.9-14.2 [facility] Comment on above: Performed By: #### 1 1480934, 3060966, 70964790, 51427123, 0711990, 06300169, 3039484, 6409173, 8556158, 4643414 ####[address] [address] [place] [address]457 Hematocrit (Bld) [Volume fraction] 46.0 % Normal 34.0-46.0 [facility] Comment on above: Performed By: #### 1 9374184, 2820713, 23655423, 59590923, 6069573, 86381787, 5644283, 3674243, 7144279, 3422732 ####[address] [address] Hemoglobin (Bld) [Mass/Vol] 15.1 g/dL Normal 12.0-16.0 [facility] Comment on above: Performed By: #### 1 2734338, 6435224, 89559092, 85679361, 2015057, 55478308, 5461321, 3664220, 0606234, 1225622 ####[facility] [address] [place] [address] Lymph Absolute 3.6 E9/L Normal 1.0-4.0 [facility] Comment on above: Performed By: #### 1 0932176, 8748303, 58670895, 00500549, 2492351, 93358726, 0013306, 7157180, 9873730, 5983149 ####[address] [place] [address] Lymphocytes/100 WBC (Bld) 30.9 % Normal 14.0-50.0 [facility] Comment on above: Performed By: #### 1 0973344, 7747751, 59227597, 33306307, 0958341, 74333685, 6292443, 7003810, 5326259, 4483588 ####[facility] [address] [place] [address] MCH (RBC) [Entitic mass] 27.6 pg Normal 27.0-34.0 [facility] Comment on above: Performed By: #### 1 3686223, 8472354, 36455177, 87845169, 8143657, 01430437, 8106857, 5716843, 9125256, 7683519 ####[facility] [address] [place] [address] MCHC (RBC) [Mass/Vol] 32.8 g/dL Normal 31.4-36.0 [facility] Comment on above: Performed By: #### 1 8053346, 1910144, 42404254, 62294782, 0209513, 13146106, 7809525, 2163788, 9612484, 0276096 ####[address] [place] [address] MCV (RBC) [Entitic vol] 84.3 fL Normal 80.0-100.0 [facility] Comment on above: Performed By: #### 1 2822932, 8325182, 98652891, 11946243, 1493530, 94681956, 0631195, 0130669, 1687229, 6935777 ####[facility] [address] [place] [address] [place] Absolute 0.9 E9/L Normal 0.2-1.0 [facility] Comment on above: Performed By: #### 1 7042775, 3739510, 15714100, 73727147, 3211878, 80078164, 8718663, 5957853, 6557360, 8012935 ####[facility] [address] [place] [address] Monocytes/100 WBC (Bld) 8.1 % Normal 4.0-14.0 [facility] Comment on above: Performed By: #### 1 9329894, 2547137, 30514215, 46816322, 4574765, 29504102, 4505418, 9839428, 6829167, 4101958 ####[facility] [address] [place] [address] Neutro Absolute 6.6 E9/L Normal 2.0-7.5 [facility] Comment on above: Performed By: #### 1 4163615, 5778998, 75558189, 87191277, 6797907, 54122763, 2193543, 8634955, 5963391, 9907719 ####[facility] [address] [place] [address] Neutro Auto 56.6 % Normal 36.0-75.0 [facility] Comment on above: Performed By: #### 1 6969885, 9722785, 55372339, 20322873, 3803297, 96090428, 2464798, 7184097, 2386926, 0728622 ####[facility] [address] [place] [address] Platelet 431.0 E9/L Normal 150.0-500.0 [facility] Comment on above: Performed By: #### 1 3355116, 4820446, 46525264, 57578946, 0773302, 68166600, 1426796, 9205196, 0194372, 9959052 ####[facility] [address] [place] [address] Platelet mean volume (Bld) [Entitic vol] 8.5 fL Normal 6.4-10.8 [facility] Comment on above: Performed By: #### 1 3400474, 3472769, 17180876, 56407386, 1844065, 55460795, 1203154, 3605661, 9607685, 9857388 ####[facility] [address] [place] [address] RBC 5.5 E12/L Normal 4.3-5.9 [facility] Comment on above: Performed By: #### 1 3617266, 4760854, 39850160, 65676746, 1316948, 52551396, 6580513, 2304512, 4639209, 4803220 ####[facility] [address] [place] [address] WBC 11.6 E9/L High 4.0-11.0 [facility] Comment on above: Performed By: #### 1 4922437, 9347159, 78089140, 83380063, 7470183, 48379125, 4404545, 8449326, 6397264, 2500409 ####[facility] [address] [place] [address] CHEMISTRYOrdered By: SYSTEM SYSTEM on 07-05-2023 Troponin 51.10 pg/mL Invalid Interpretation Code 10.10 - 27.10 pg/mL [facility] Comment on above: Result Comment: Crit ical Result I_TnIHS:51.1 Called to and read back by: DR. JUAN MAS at: 07/05/2023 21:51:38 by:[id number] Critical Result Verified by Previous Result Interpretive Data: T he 95% CI (Confidence Interval) PPV (Positive Predictive Value) for myocardial infarction in females is 38 pg/mL, in males 51 pg/mL. The results should be used in conjunction with clinical conditions of myocardial infarction. (Access High Sensitivity Troponin I Instructions For Use, [employer], December 2017) Troponin 51.70 pg/mL Invalid Interpretation Code 10.10 - 27.10 pg/mL [facility] Chem S Comment on above: Interpretive Data: T he 95% CI (Confidence Interval) PPV (Positive Predictive Value) for myocardial infarction in females is 38 pg/mL, in males 51 pg/mL. The results should be used in conjunction with clinical conditions of myocardial infarction. (Access High Sensitivity Troponin I Instructions For Use, [employer], December 2017) Result Comment: Crit ical Result [...] back by: JOHNNA PERKINS at: 07/05/2023 16:37:35 by:[id number] Interpretive Data: T he 95% CI (Confidence [...] 508 pg/mL High 5 - 80 pg/mL [facility] COAGULATIONOrdered By: Richar Kumar on 07-05-2023 aPTT Coag (PPP) [Time] 27.2 s Normal 25.1 - 36.5 second(s) [facility] Auto Coag Comment on above: Interpretive Data: [...] the same coagulation reagent and instrumentation as [facility]. Currently there are no coagulation studies available worldwide for children to 14 days, and no normal ranges. Heparin therapeutic range (represented by Anti-Factor Xa activity of 0.2 - 0.4 U/mL) corresponds to PTT of 56.6 - 109.0 sec. INR Coag (PPP) [Relative time] 1.01 {INR} Invalid Interpretation Code [facility] Auto Coag Comment on above: Interpretive Data: I NR results are specifically intended to assess patients stabilized on long-term Anticoagulation therapy suggested INR s Less Intensive Anticoagulation 2.0 3.0 Conventional Range 3.0 4.5 PT Coag (PPP) [Time] 11.2 s Normal 9.4 - 1 2.5 second(s) [facility] Auto Coag Comment on above: Interpretive Data: [...] the same coagulation reagent and instrumentation as [facility]. Currently there are no coagulation studies available worldwide for children to 14 days, and no normal ranges. Consent for Treatmenton 06-15 Consent for Treatment [id number]#1 .00TIFF Normal [facility] Digoxinon 07-05-2023 Digoxin Lvl <0.2 Low 0.5-1.9 [facility] Comment on above: Performed By: #### 1 3809008, 3055482, 10272666, 16805637, 8392619, 66831750, 8559958, 7999768, 3907563, 6666159 ####[facility] [address] [place] [address] ED Note-Physicianon 07-05-19 ED Note-Physician Basic Information [...] patient states she was just released from [facility] 36 hours ago. She states she [...] acute int (more content not included)... Normal [facility] Comment on above: Result Comment: Elec tronically [...] Normal 80.0 - 100.0 fL Remisol Heme [place] Absolute 0.9 E9/L Normal 0.2 - 1.0 [...] 07-05-2023 Albumin [Mass/Vol] 4.3 g/dL Normal 3.3-5.0 [facility] Comment on above: Performed By: #### 1 6214169, 2676387, 66907630, 62891101, 5220728, 31984173, 2969115, 1968303, 3382817, 7674718 ####[place] [place] [address] Albumin/Globulin [Mass ratio] 1.4 {ratio} Normal 1.1-2.2 [facility] Comment on above: Performed By: #### 1 0750591, 2333452, 36687306, 63035670, 0276114, 56075379, 6869520, 1939921, 6447856, 3440130 ####[place] [address] [place] [address] Alk Phos 77 Int._Unit/L Normal 21-98 [facility] Comment on above: Performed By: #### 1 3343973, 7863988, 29664391, 53279062, 1990916, 81496497, 0906443, 7301782, 1533982, 7186294 ####[place] [address] [place] [address] ALT 20 Int._Unit/L Normal 6-46 [facility] Comment on above: Performed By: #### 1 0184350, 0141008, 35472920, 22404081, 8561799, 25818394, 2408587, 8990852, 2110986, 4457525 ####[address] [address] AST 23 Int._Unit/L Normal 5-43 [facility] Comment on above: Performed By: #### 1 2928002, 7634022, 96243795, 41564449, 8090537, 87806279, 9688177, 3620958, 0039716, 2979699 ####[place] [address] [place] [address] Bili Direct 0.1 mg/dL Normal 0.0-0.4 [facility] Comment on above: Performed By: #### 1 7309279, 2443884, 72481969, 02534380, 7158863, 84317317, 4609733, 2273198, 6623248, 4824401 ####[place] [address] [place] [address] Bili Indirect 0.5 mg/dL Normal 0.1-0.9 [facility] Comment on above: Performed By: #### 1 8053908, 3104825, 89557006, 15063170, 2212922, 09412668, 7763902, 8715788, 3023943, 8609504 ####[facility] [address] [place] [address] Bili Total 0.6 mg/dL Normal 0.0-1.1 [facility] Comment on above: Performed By: #### 1 4587117, 0364449, 26877245, 73785548, 9551532, 99703390, 1048236, 2894724, 0257264, 7496186 ####[address] [place] [address] Globulin (S) [Mass/Vol] 3.0 g/dL Normal 1.4-4.0 [facility] Comment on above: Performed By: #### 1 1936399, 9126725, 29496109, 18885574, 2878974, 24233186, 7604401, 0327805, 8880664, 3144196 ####[facility] [address] [place] [address] Protein [Mass/Vol] 7.3 g/dL Normal 6.0-7.8 [facility] Comment on above: Performed By: #### 1 6954658, 4909988, 93184931, 45896392, 2246573, 68646471, 2395401, 2000574, 7329234, 0231870 ####[facility] [address] [place] [address] Lipase Levelon 07-05-2023 Lipase Lvl 22 unit/L Normal 13-58 [facility] Comment on above: Performed By: #### 1 7680238, 9452575, 23162384, 22172287, 7043191, 00026471, 2851450, 5120236, 4346964, 5153420 ####[place] [address] [place] [address] Magnesiumon 07-05-2023 Magnesium [Mass/Vol] 2.3 mg/dL Normal 1.3-2.4 [facility] Comment on above: Performed By: #### 1 5519707, 4961192, 52438242, 18452639, 6066182, 27160482, 9092499, 8623442, 5644722, 6005464 ####[facility] [address] [place] [address] Monitor Recordon 07-05-2023 Monitor Record [id number]# 1.00TIFF Normal [facility] Monitor Record [id number]# 1.00TIFF Normal [facility] Monitor Record [id number]# 1.00TIFF Normal [facility] PT & PTTon 07-05-2023 aPTT Coag (PPP) [Time] 27.2 second(s) Normal 25.1-36.5 [facility] Comment on above: Result Comment: Para meter [...] the same coagulation reagent and instrumentation as [facility]. Currently there are no coagulation studies available worldwide for children to 14 days, and no normal ranges. Heparin therapeutic range (represented by Anti-Factor Xa activity of 0.2 - 0.4 U/mL) corresponds to PTT of 56.6 - 109.0 sec. Performed By: #### 1 6620911, 3540498, 20630880, 10073592, 3837723, 04956536, 4191024, 6890105, 9355636, 5014375 ####[facility] [address] [place] [address] INR Coag (PPP) [Relative time] 1.01 {INR} Invalid Interpretation Code [facility] Comment on above: Result Comment: INR results are specifically intended to assess patients stabilized on long-term Anticoagulation therapy suggested INR?s ?Less Intensive Anticoagulation? 2.0 ? 3.0 Conventional Range 3.0 ? 4.5 Performed By: #### 1 7292708, 2971722, 60374765, 92614713, 9070467, 00441472, 9890381, 7493901, 6213832, 2434552 ####[facility] [address] [place] [address] PT Coag (PPP) [Time] 11.2 second(s) Normal 9.4-12.5 [facility] Comment on above: Result Comment: 15 d [...] the same coagulation reagent and instrumentation as [facility]. Currently there are no coagulation studies available worldwide for children to 14 days, and no normal ranges. Performed By: #### 1 8969577, 9921902, 47818383, 67183325, 0534327, 38068805, 3216336, 2823741, 2995467, 9857671 ####[facility] [address] [place] [address] Pre-Arrival Noteon 4 Pre-Arrival Note Pre-Arrival Summary Name: , [place] [facility] Current Date: 07/05/2023 15:02:00 EST Gender: Female Date of : Age: 63 Pre-Arrival Type: EMS ETA: 07/05/2023 15:21:00 EST Primary Care Physician: Presenting Problem: HR 40s, CP, SOB, dizziness, abd. pain, nausea Pre-Arrival User: Oxana Pace RN Referring Source: Location: DC Completion Date/Time: 07/05/2023 14:51:[address] [facility] Emergency Department Pre-Hospital Report Form Vital Signs: Pre-Hospital Report: Treatment in Route: Response to Treatment: Misc. Issues: Normal [facility] Troponin 0 Hr.on 07-05-2023 Troponin 49.20 pg/mL Abnormal 10.10-27.10 [facility] Comment on above: Result Comment: Crit ical Result Verified by Repeat Analysis Critical Result I_TnIHS:49.2 Called to and read back by: JOHNNA PERKINS at: 07/05/2023 16:37:35 by:[id number] The 95% CI (Confidence Interval) PPV (Positive Predictive Value) for myocardial infarction in females is 38 pg/mL, in males 51 pg/mL. The results should be used in conjunction with clinical conditions of myocardial infarction. (Access High Sensitivity Troponin I Instructions For Use, [employer] Christianne, December 2017) Performed By: #### 1 1248835, 5748672, 57732139, 73603778, 6276041, 70095787, 8375416, 8963370, 0846502, 0913594 ####[facility] [address] [place] [address] Troponin 3 Hr.on 07-05-2023 Troponin 51.70 pg/mL Abnormal 10.10-27.10 [facility] Comment on above: Result Comment: The 95% CI (Confidence Interval) PPV (Positive Predictive Value) for myocardial infarction in females is 38 pg/mL, in males 51 pg/mL. The results should be used in conjunction with clinical conditions of myocardial infarction. (Access High Sensitivity Troponin I Instructions For Use, [employer], December 2017) Critical Result Verified by Previous Result Results Called To Johnna Perkins (ER) By And Read Back For Confirmation On 07/05/2023 19:18:03 EST. Performed By: #### 1 [id number] ####[facility] [address] [place] [address] Troponin 6 Hr.on 07-05-2023 Troponin 51.10 pg/mL Abnormal 10.10-27.10 [facility] Comment on above: Result Comment: Crit ical Result I_TnIHS:51.1 Called to and read back by: DR. JUAN MAS at: 07/05/2023 21:51:38 by:[id number] Critical Result Verified by Previous Result The 95% CI (Confidence Interval) PPV (Positive Predictive Value) for myocardial infarction in females is 38 pg/mL, in males 51 pg/mL. The results should be used in conjunction with clinical conditions of myocardial infarction. (One Diary High Sensitivity Troponin I Instructions For Use, [employer], December 2017) Performed By: #### 1 [id number] ####[facility] [address] [place] [address] XR Chest Single Viewon 07-05 XR Chest [...] mGy = na DAP = na Normal [facility] eGFRon 07-05-2023 eGFR 39 mL/min/1.73 m2 Low >=59 [facility] Comment on above: Order Comment: Order added by Discern Expert. Performed By: #### 1 2297909, 9128017, 20067269, 23537076, 4867010, 67246816, 2026123, 8010863, 7067686, 5140129 ####[facility] [address] [place] [address] 36on 07-03-2023 36 Unable to reach pt . Phone not in service [facility] 36 Pts phone number not in service. Spoke to pts friend Arvind and requested he have pt call us, he agrees. [facility] Documentationon 07-03-2023 Documentation [id number] Vivian Vann 1960 F Date Provider Department [place] 07/03/2023 MARKO [facility] No family history on file Reason for Visit and Comments: HF inpatient satisfaction suvrey sent. [Other] [facility] 30on 07-02-2023 30 The patient is [...] and behaviors that affect risk of falls [place] fall precautions as indicated by assessment Educate [...] and prevent overall improvement and discharge Normal [facility] 30 The patient is Moderately Stable [...] and behaviors that affect risk of falls [place] fall precautions as indicated by assessment Educate [...] and prevent overall improvement and discharge Normal [facility] BASIC METABOLIC PANELon - Anion gap [Moles/Vol] 11 mmol/L Normal 7-20 [facility] Comment on above: Performed By: #### L [id number] #### [facility] ([facility]) [address] [place] [address] Calcium [Mass/Vol] 9.0 mg/dL Normal 8.6-10.3 [facility] Comment on above: Performed By: #### L [id number] #### [facility] ([facility]) [address] [place] [address] Chloride [Moles/Vol] 91 mmol/L Low 98-107 [facility] Comment on above: Performed By: #### L [id number] #### [facility] ([facility]) [address] [place] [address] CO2 [Moles/Vol] 37 mmol/L High 21-31 [facility] Comment on above: Performed By: #### L [id number] #### [facility] ([facility]) [address] [place] [address] Creatinine [Mass/Vol] 0.89 mg/dL Normal 0.60-1.20 [facility] Comment on above: Performed By: #### L [id number] #### [facility] ([facility]) [address] [place] [address] GLOMERULAR FILTRATION RATE ML/MIN/1.73 SQ M.PREDICTED 73.3 mL/min/1.73m*2 Normal >60.0 [facility] Comment on above: Result Comment: [facility]???s estimated glomerular filtration rate (eGFR) will no [...] individuals. Performed By: #### L [id number] #### [facility] ([facility]) [address] [place] [address] Glucose [Mass/Vol] 123 mg/dL High 70-100 [facility] Comment on above: Performed By: #### L [id number] #### [facility] ([facility]) [address] [place] [address] Potassium [Moles/Vol] 3.7 mmol/L Normal 3.5-5.1 [facility] Comment on above: Performed By: #### L [id number] #### [facility] ([facility]) [address] [place] [address] Sodium [Moles/Vol] 135 mmol/L Low 136-145 [facility] Comment on above: Performed By: #### L [id number] #### [facility] ([facility]) [address] [place] [address] Urea nitrogen [Mass/Vol] 29 mg/dL High 7-25 [facility] Comment on above: Performed By: #### L [id number] #### [facility] ([facility]) [address] [place] [address] UREA NITROGEN/CREATININE (MASS RATIO) IN SER/PLAS 32.6 Normal [facility] Comment on above: Performed By: #### L [id number] #### [facility] [address] [place] [address] CBCon 07-02-2023 Erythrocyte distribution width (RBC) [Ratio] 15.8 % High 11.5-15.0 [facility] Comment on above: Performed By: #### L [id number] ####[facility] ([facility])[address] [place] [address] ERYTHROCYTE MEAN CORPUSCULAR HEMOGLOBIN CONCENTRATION (G/DL) BY AUTOMATED 31.8 g/dL Low 32.0-35.0 [facility] Comment on above: Performed By: #### L [id number] ####[facility] ([facility])[address] [place] [address] Hematocrit (Bld) [Volume fraction] 44.0 % Normal 36.0-48.0 [facility] Comment on above: Performed By: #### L [id number] ####[facility] ([facility])[address] [place] [address] Hemoglobin (Bld) [Mass/Vol] 14.0 g/dL Normal 12.0-15.0 [facility] Comment on above: Performed By: #### L [id number] ####[facility] ([facility])[address] [place] [address] MCH (RBC) [Entitic mass] 27.9 pg Normal 27.0-33.0 [facility] Comment on above: Performed By: #### L [id number] ####[facility] ([facility])[address] [place] [address] MCV (RBC) [Entitic vol] 87.8 fL Normal 82.0-98.0 [facility] Comment on above: Performed By: #### L [id number] ####[facility] ([facility])[address] [place] [address] PLATELETS (10*3/UL) IN BLOOD AUTOMATED COUNT 285 10*3/uL Normal 150-400 [facility] Comment on above: Performed By: #### L [id number] ####[facility] (BEAKER)[address] [place] [address] RBC (Bld) [#/Vol] 5.01 10*6/uL High 3.80-5.00 [facility] Comment on above: Performed By: #### L [id number] ####[facility] [place] [address] WBC (Bld) [#/Vol] 8.89 10*3/uL Normal 4.00-10.60 [facility] Comment on above: Performed By: #### L [id number] ####[facility] ([facility])[address] [place] [address] DSon 07-02-2023 DS Admit Date 06/29/2023 Discharge Date 07/02/2023 Discharge Diagnosis NSTEMI Acute on chronic HFpEF NYHA class 2 CAD DMII noninsulin dependent Chronic pain Anxiety GERD Tobacco abuse Discharge Disposition [place] [facility] [place] Discharge Medications Your medication list START [...] Medications These medications were sent to [facility] - [place], [place] - [address] [place] [address], [facility] [address] furosemide 40 mg tablet spironolactone 25 mg tablet Activity Normal activity as tolerated Diet Continue on the same type of diet and foods as you were eating before your admission. Drink plenty of water. Allergies Hay fever and allergy relief and House dust Hospital Course History of Present Illness Vivian Vann is an 63 y.o. female who came from [facility] as direct asmission for NSTEMI. Patient presented 06/28/23 to [place] ED for c/o chest pain and lower back pain. Patient troponin level found to be 557 and EKG showed new ischemia and inverted T-waves, NSTEMI. She was given nitroglycerin and started on heparin drip. Patient is 1 year s/p stent placement at [facility] on plavix and aspirin. Dr. Yoo with cardiology [facility] [facility] with hospital medicine admitting and cardiology [...] Low back pending. Laboratory workup here at [facility] shows CBC unremarkable w/ exception of [...] General: Abdo (more content not included)... Normal [facility] POCT GLUCOSE METER UNSOLICIT ED RESULTSon 07-02-2023 Glucose [Mass/Vol] 117 mg/dL High 70-105 [facility] Comment on above: Order Comment: Waive d Testing in the ED is performed under the ED CLIA certificate #[id number]. Result Comment: [email or web address] Performed By: #### L [id number] #### [facility] (BEAKER) [address] [place] [address] Glucose [Mass/Vol] 110 mg/dL High 70-105 [facility] Comment on above: Order Comment: Waive d Testing in the ED is performed under the ED CLIA certificate #[id number]. Result Comment: [email or web address] Performed By: #### L [id number] ####[facility] (BEAKER)[address] [place] [address] 30on 07-01-2023 30 The patient is Moderately [...] and behaviors that affect risk of falls [place] fall precautions as indicated by assessment Educate [...] and prevent overall improvement and discharge Normal [facility] BASIC METABOLIC PANELon - Anion gap [Moles/Vol] 10 mmol/L Normal 7-20 [facility] on above: Performed By: #### L [id number] #### [facility] ([facility]) [address] [place] [address] Calcium [Mass/Vol] 8.3 mg/dL Low 8.6-10.3 [facility] Comment on above: Performed By: #### L [id number] #### [facility] [address] [place] [address] Chloride [Moles/Vol] 98 mmol/L Normal 98-107 [facility] Comment on above: Performed By: #### L [id number] #### [facility] ([facility]) [address] [place] [address] CO2 [Moles/Vol] 35 mmol/L High 21-31 [facility] Comment on above: Performed By: #### L [id number] #### [facility] ([facility]) [address] [place] [address] Creatinine [Mass/Vol] 1.08 mg/dL Normal 0.60-1.20 [facility] Comment on above: Performed By: #### L [id number] #### [facility] ([facility]) [address] [place] [address] GLOMERULAR FILTRATION RATE ML/MIN/1.73 SQ M.PREDICTED 58.1 mL/min/1.73m*2 Low >60.0 [facility] Comment on above: Result Comment: The [facility]???s estimated glomerular filtration rate (eGFR) will no [...] individuals. Performed By: #### L [id number] #### [facility] [address] [place] [address] Glucose [Mass/Vol] 116 mg/dL High 70-100 [facility] Comment on above: Performed By: #### L [id number] #### [facility] ([facility]) [address] [place] [address] Potassium [Moles/Vol] 3.7 mmol/L Normal 3.5-5.1 [facility] Comment on above: Performed By: #### L [id number] #### [facility] ([facility]) [address] [place] [address] Sodium [Moles/Vol] 139 mmol/L Normal 136-145 [facility] Comment on above: Performed By: #### L [id number] #### [facility] ([facility]) [address] [place] [address] Urea nitrogen [Mass/Vol] 27 mg/dL High 7-25 [facility] Comment on above: Performed By: #### L [id number] #### [facility] ([facility]) [address] [place] [address] UREA NITROGEN/CREATININE (MASS RATIO) IN SER/PLAS 25.0 Normal [facility] Comment on above: Performed By: #### L [id number] #### [facility] ([facility]) [address] [place] [address] POCT GLUCOSE METER UNSOLICIT ED RESULTSon 07-01-2023 Glucose [Mass/Vol] 132 mg/dL High 70-105 [facility] Comment on above: Order Comment: Waive d Testing in the ED is performed under the ED CLIA certificate #[id number]. Result Comment: [email or web address] [email or web address] Performed By: #### L [id number] ####[facility] ([facility])[address] [place] [address] Glucose [Mass/Vol] 106 mg/dL High 70-105 [facility] Comment on above: Order Comment: Waive d Testing in the ED is performed under the ED CLIA certificate #[id number]. Result Comment: [email or web address] Performed By: #### L [id number] ####[facility] [place] [address] Glucose [Mass/Vol] 121 mg/dL High 70-105 [facility] Comment on above: Order Comment: Waive d Testing in the ED is performed under the ED CLIA certificate #[id number]. Result Comment: [email or web address] Performed By: #### L [id number] ####[facility] ([facility])[address] [place] [address] Glucose [Mass/Vol] 105 mg/dL Normal 70-105 [facility] Comment on above: Order Comment: Waive d Testing in the ED is performed under the ED CLIA certificate #[id number]. Result Comment: [email or web address] Performed By: #### L [id number] #### [facility] ([facility]) [address] [place] [address] 30on 06-30-2023 30 The patient is Moderately [...] and maintained or improved Outcome: Progressing Normal [facility] ANTI-XA (HEPARIN LEVEL)on HEPARIN UNFRACTIONATED (U/ML) IN PPP BY CHROMOGENIC METHOD <0.10 Invalid Interpretation Code 0.3-0.7 [facility] Comment on above: Order Comment: Check anti-Xa level every 6 hours while on heparin infusion, or per protocol. Result Comment: Mathews roxaban and Apixaban will interfere with the anti Xa assay used to monitor UFH and LMWH. Performed By: #### L [id number] #### [facility] ([facility]) [address] [place] [address] CBCon 06-30-2023 Erythrocyte distribution width (RBC) [Ratio] 15.3 % High 11.5-15.0 [facility] Comment on above: Performed By: #### L [id number] ####[facility] (BEAKER)[address] [place] [address] ERYTHROCYTE MEAN CORPUSCULAR HEMOGLOBIN CONCENTRATION (G/DL) BY AUTOMATED 32.2 g/dL Normal 32.0-35.0 [facility] Comment on above: Performed By: #### L [id number] ####[facility] [place] [address] Hematocrit (Bld) [Volume fraction] 35.7 % Low 36.0-48.0 [facility] Comment on above: Performed By: #### L [id number] ####[facility] [place] [address] Hemoglobin (Bld) [Mass/Vol] 11.5 g/dL Low 12.0-15.0 [facility] Comment on above: Performed By: #### L [id number] ####[facility] (BEAKER)[address] [place] [address] MCH (RBC) [Entitic mass] 28.1 pg Normal 27.0-33.0 [facility] Comment on above: Performed By: #### L [id number] ####[facility] (BEAKER)[address] [place] [address] MCV (RBC) [Entitic vol] 87.3 fL Normal 82.0-98.0 [facility] Comment on above: Performed By: #### L [id number] ####[facility] (BEAKER)[address] [place] [address] PLATELETS (10*3/UL) IN BLOOD AUTOMATED COUNT 219 10*3/uL Normal 150-400 [facility] Comment on above: Performed By: #### L [id number] ####[facility] (BEAKER)[address] [place] [address] RBC (Bld) [#/Vol] 4.09 10*6/uL Normal 3.80-5.00 [facility] Comment on above: Performed By: #### L [id number] ####[facility] (BEAKER)[address] [place] [address] WBC (Bld) [#/Vol] 10.22 10*3/uL Normal 4.00-10.60 [facility] Comment on above: Performed By: #### L [id number] ####[facility] (BEAKER)[address] [place] [address] CONSULTon 06-30-2023 CONSULT Clinical Nutrition Assessment Name: [...] with questions and contact the dietitian via [employer] chat 8A-4P Sunday-Sunday. Or call the dietitian's office at extension [phone]. For weekends/holidays, the dietitian's can be reached by paging [phone] from 9A-3P. Unable to be reached via [employer] chat on Sunday & .) Normal [facility] HEMOGLOBIN A1Con 06-30-2023 Glucose [Mass/Vol] 143 mg/dL Normal [facility] Comment on above: Performed By: #### L [id number] ####[facility] (BEAKER)[address] [place] [address] HbA1c (Bld) [Mass fraction] 6.6 % High 4.0-6.0 [facility] Comment on above: Performed By: #### L [id number] ####[facility] (BE[facility]ER)[address] [place] [address] LACTIC ACID WITH 4 HOUR REFL EXon 06-30-2023 LACTATE (MMOL/L) IN SER/PLAS 1.9 mmol/L Normal 0.5-2.2 [facility] Comment on above: Performed By: #### L [id number] #### [facility] (BE[facility]ER) [address] [place] [address] POCT GLUCOSE METER UNSOLICIT ED RESULTSon 06-30-2023 Glucose [Mass/Vol] 156 mg/dL High 70-105 [facility] Comment on above: Order Comment: Waive d Testing in the ED is performed under the ED CLIA certificate #[id number]. Result Comment: [email or web address] Performed By: #### L [id number] ####[facility] (BEAKER)[address] [place] [address] Glucose [Mass/Vol] 149 mg/dL High 70-105 [facility] Comment on above: Order Comment: Waive d Testing in the ED is performed under the ED CLIA certificate #[id number]. Result Comment: [email or web address] Performed By: #### L [id number] #### [facility] ([facility]) [address] [place] [address] Glucose [Mass/Vol] 181 mg/dL High 70-105 [facility] Comment on above: Order Comment: Waive d Testing in the ED is performed under the ED CLIA certificate #[id number]. Result Comment: [email or web address] Performed By: #### L [id number] #### [facility] [address] [place] [address] 30on 06-29-2023 30 The patient is Moderately [...] and maintained or improved Outcome: Progressing Normal [facility] 30 The patient is Moderately Stable - Low risk of patient condition declining or worsening The patient's goals for the shift include no chest pain The clinical goals for the shift include vss Over the shift, the patient did not make progress toward the following goals. Barriers to progression include . Recommendations to address these barriers include . Normal [facility] APTTon 06-29-2023 ACTIVATED PARTIAL THROMBOPLASTIN TIME IN PPP BY COAGULATION ASSAY 67.3 Seconds High 25.0-35.0 [facility] Comment on above: Result Comment: Clin ical significance of the APTT is questionable in the presence of heparin. Performed By: #### L [id number] #### [facility] [address] [place] [address] B-TYPE NATRIURETIC PEPTIDEon 06-29-2023 Natriuretic peptide B (Bld) [Mass/Vol] 1683 pg/mL High 0-100 [facility] Comment on above: Performed By: #### L [id number] #### [facility] [address] [place] [address] BASIC METABOLIC PANELon 06-14 Anion gap [Moles/Vol] 14 mmol/L Normal 7-20 [facility] Comment on above: Performed By: #### L [id number] #### [facility] ([facility]) [address] [place] [address] Calcium [Mass/Vol] 8.2 mg/dL Low 8.6-10.3 [facility] Comment on above: Performed By: #### L [id number] #### [facility] ([facility]) [address] [place] [address] Chloride [Moles/Vol] 102 mmol/L Normal 98-107 [facility] Comment on above: Performed By: #### L [id number] #### [facility] ([facility]) [address] [place] [address] CO2 [Moles/Vol] 25 mmol/L Normal 21-31 [facility] Comment on above: Performed By: #### L [id number] #### [facility] ([facility]) [address] [place] [address] Creatinine [Mass/Vol] 1.04 mg/dL Normal 0.60-1.20 [facility] Comment on above: Performed By: #### L [id number] #### [facility] ([facility]) [address] [place] [address] GLOMERULAR FILTRATION RATE ML/MIN/1.73 SQ M.PREDICTED 60.8 mL/min/1.73m*2 Normal >60.0 [facility] Comment on above: Result Comment: The [facility]???s estimated glomerular filtration rate (eGFR) will no [...] individuals. Performed By: #### L [id number] #### [facility] ([facility]) [address] [place] [address] Glucose [Mass/Vol] 268 mg/dL High 70-100 [facility] Comment on above: Performed By: #### L [id number] #### [facility] ([facility]) [address] [place] [address] Potassium [Moles/Vol] 4.1 mmol/L Normal 3.5-5.1 [facility] Comment on above: Performed By: #### L [id number] #### [facility] ([facility]) [address] [place] [address] Sodium [Moles/Vol] 137 mmol/L Normal 136-145 [facility] Comment on above: Performed By: #### L [id number] #### [facility] ([facility]) [address] [place] [address] Urea nitrogen [Mass/Vol] 14 mg/dL Normal 7-25 [facility] Comment on above: Performed By: #### L [id number] #### [facility] ([facility]) [address] [place] [address] UREA NITROGEN/CREATININE (MASS RATIO) IN SER/PLAS 13.5 Normal [facility] Comment on above: Performed By: #### L [id number] #### [facility] ([facility]) [address] [place] [address] CBCon 06-29-2023 Erythrocyte distribution width (RBC) [Ratio] 15.3 % High 11.5-15.0 [facility] Comment on above: Performed By: #### L [id number] #### [facility] ([facility]) [address] [place] [address] ERYTHROCYTE MEAN CORPUSCULAR HEMOGLOBIN CONCENTRATION (G/DL) BY AUTOMATED 31.8 g/dL Low 32.0-35.0 [facility] Comment on above: Performed By: #### L [id number] #### [facility] ([facility]) [address] [place] [address] Hematocrit (Bld) [Volume fraction] 39.3 % Normal 36.0-48.0 [facility] Comment on above: Performed By: #### L [id number] #### [facility] ([facility]) [address] [place] [address] Hemoglobin (Bld) [Mass/Vol] 12.5 g/dL Normal 12.0-15.0 [facility] Comment on above: Performed By: #### L [id number] #### [facility] ([facility]) [address] [place] [address] MCH (RBC) [Entitic mass] 28.4 pg Normal 27.0-33.0 [facility] Comment on above: Performed By: #### L [id number] #### [facility] ([facility]) [address] [place] [address] MCV (RBC) [Entitic vol] 89.3 fL Normal 82.0-98.0 [facility] Comment on above: Performed By: #### L [id number] #### [facility] ([facility]) [address] [place] [address] PLATELETS (10*3/UL) IN BLOOD AUTOMATED COUNT 218 10*3/uL Normal 150-400 [facility] Comment on above: Performed By: #### L [id number] #### [facility] ([facility]) [address] [place] [address] RBC (Bld) [#/Vol] 4.40 10*6/uL Normal 3.80-5.00 [facility] Comment on above: Performed By: #### L [id number] #### [facility] [address] [place] [address] WBC (Bld) [#/Vol] 9.91 10*3/uL Normal 4.00-10.60 [facility] Comment on above: Performed By: #### L [id number] #### [facility]OSPITAL [facility] (BEAKER) [address] [place] [address] COMPREHENSIVE METABOLIC PANE Pollo 06-29-2023 Albumin [Mass/Vol] 3.8 g/dL Normal 3.5-5.7 [facility] Comment on above: Performed By: #### L [id number] ####[facility] (BEAKER)[address] [place] [address] ALP [Catalytic activity/Vol] 77 U/L Normal 34-104 [facility] Comment on above: Performed By: #### L [id number] ####[facility] ([facility]ER)[address] [place] [address] ALT [Catalytic activity/Vol] 23 U/L Normal 7-52 [facility] Comment on above: Performed By: #### L [id number] ####[facility] ([facility])[address] [place] [address] Anion gap [Moles/Vol] 10 mmol/L Normal 7-20 [facility] Comment on above: Performed By: #### L [id number] ####[facility] ([facility]ER)[address] [place] [address] AST [Catalytic activity/Vol] 23 U/L Normal 13-39 [facility] Comment on above: Performed By: #### L [id number] ####[facility] ([facility]ER)[address] [place] [address] Bilirubin [Mass/Vol] 0.4 mg/dL Normal 0.3-1.0 [facility] Comment on above: Performed By: #### L [id number] ####[facility] ([facility]ER)[address] [place] [address] Calcium [Mass/Vol] 8.6 mg/dL Normal 8.6-10.3 [facility] Comment on above: Performed By: #### L [id number] ####[facility] HOSPITAL [facility] (BEAKER)[address] [place] [address] Chloride [Moles/Vol] 107 mmol/L Normal 98-107 [facility] Comment on above: Performed By: #### L [id number] ####[facility] ([facility]ER)[address] [place] [address] CO2 [Moles/Vol] 27 mmol/L Normal 21-31 [facility] Comment on above: Performed By: #### L [id number] ####[facility] [place] [address] Creatinine [Mass/Vol] 1.01 mg/dL Normal 0.60-1.20 [facility] Comment on above: Performed By: #### L [id number] ####[facility] ([facility])[address] [place] [address] GLOMERULAR FILTRATION RATE ML/MIN/1.73 SQ M.PREDICTED 62.9 mL/min/1.73m*2 Normal >60.0 [facility] Comment on above: Result Comment: The [facility]???s estimated glomerular filtration rate (eGFR) will no [...] of individuals. Performed By: #### L [id number] ####[facility] (BE[facility]ER)[address] [place] [address] Glucose [Mass/Vol] 148 mg/dL High 70-100 [facility] Comment on above: Performed By: #### L [id number] ####[facility] (BE[facility]ER)[address] [place] [address] Potassium [Moles/Vol] 4.2 mmol/L Normal 3.5-5.1 [facility] Comment on above: Performed By: #### L [id number] ####[facility] ([facility])[address] [place] [address] Protein [Mass/Vol] 6.3 g/dL Normal 6.0-8.3 [facility] Comment on above: Performed By: #### L [id number] ####[facility] ([facility])[address] [place] [address] Sodium [Moles/Vol] 140 mmol/L Normal 136-145 [facility] Comment on above: Performed By: #### L [id number] ####[facility] ([facility])[address] [place] [address] Urea nitrogen [Mass/Vol] 10 mg/dL Normal 7-25 [facility] Comment on above: Performed By: #### L [id number] ####[facility] ([facility])[address] [place] [address] UREA NITROGEN/CREATININE (MASS RATIO) IN SER/PLAS 9.9 Normal [facility] Comment on above: Performed By: #### L [id number] ####[facility] ([facility])[address] [place] [address] CONSULTon 06-29-2023 CONSULT - Attestation signed by [...] tobacco use comes as a transfer from [facility] due to suspected NSTEMI. Patient was complaining [...] Her troponins were elevated at 557 at [facility] and recheck here shows 0.07. Patient continues [...] Value Ventricular Rate 61 Atrial Rate 61 SC Interval 150 (more content not included)... Normal [facility] HPon 06-29-2023 HP Interval Pre-Procedural H&P Reason for Consult: NSTEMI HPI: Vivian Vann is a 63 y.o. female with PMH of CAD s/p PCI to LAD (October 2021), HTN, HLD, COPD, tobacco use comes as a transfer from [facility] due to suspected NSTEMI. Patient was complaining [...] Her troponins were elevated at 557 at [facility] and recheck here shows 0.07. Patient continues [...] Value Ventricular Rate 61 Atrial Rate 61 SC Interval 150 QRS DURATION 88 QT Interval 476 QTC CALCULATION(BAZETT) 479 P [place] 68 R-[place] 25 T Wave [place] 128 Impression Normal sinus rhythm Right atrial [...] deformity. End (more content not included)... Normal [facility] LACTIC ACID WITH 4 HOUR REFL EXon 06-29-2023 LACTATE (MMOL/L) IN SER/PLAS 3.6 mmol/L Critically high 0.5-2.2 [facility] Comment on above: Result Comment: M-SC EVIOUS CRITICAL RESULT Previous result verified on 06/29/2023 1809 on specimen/case [id number] called with component Lactate blood venous for procedure Lactic acid with 4 hour reflex with value 2.7 mmol/L. Performed By: #### L [id number] #### [facility] (BEAKER) [address] [place] [address] LACTATE (MMOL/L) IN SER/PLAS 2.7 mmol/L Critically high 0.5-2.2 [facility] Comment on above: Performed By: #### L [id number] #### [facility] ([facility]ER) [address] [place] [address] LACTATE (MMOL/L) IN SER/PLAS 2.5 mmol/L High 0.5-2.2 [facility] Comment on above: Performed By: #### L [id number] ####[facility] ([facility])[address] [address] MAGNESIUMon 06-29-2023 Magnesium [Mass/Vol] 2.1 mg/dL Normal 1.9-2.7 [facility] Comment on above: Performed By: #### L [id number] ####[facility] ([facility])[address] [address] Magnesium [Mass/Vol] 2.2 mg/dL Normal 1.9-2.7 [facility] Comment on above: Performed By: #### L [id number] #### [facility] ([facility]) [address] [place] [address] Magnesium [Mass/Vol] 1.7 mg/dL Low 1.9-2.7 [facility] Comment on above: Performed By: #### L [id number] #### [facility] ([facility]) [address] [place] [address] NURSNOTEon 06-29-2023 NURSNOTE Notified [place] [facility] Hospitalist critical lactate 2.7 no orders received said she would recheck lactate in 4 hrs Normal [facility] PHOSPHORUSon 06-29-2023 Magnesium [Mass/Vol] 3.5 mg/dL Normal 2.5-5.0 [facility] Comment on above: Performed By: #### L [id number] ####[facility] ([facility])[address] [place] [address] PROTIME-INRon 06-29-2023 INR IN PPP BY COAGULATION ASSAY 0.98 Normal 0.90-1.10 [facility] Comment on above: Result Comment: ACCC P [...] CHEST 1995;[id number]. Performed By: #### L [id number] ####[facility] ([facility])[address] [place] [address] PROTHROMBIN TIME (PT) IN PPP BY COAGULATION ASSAY 13.0 Seconds Normal 12.3-14.8 [facility] Comment on above: Performed By: #### L [id number] ####[facility] ([facility])[address] [place] [address] TROPONIN Ion 06-29-2023 Troponin I.cardiac [Mass/Vol] 0.06 ng/mL High 0.00-0.04 [facility] Comment on above: Performed By: #### L [id number] #### [facility] ([facility]) [address] [place] [address] Troponin I.cardiac [Mass/Vol] 0.07 ng/mL High 0.00-0.04 [facility] Comment on above: Performed By: #### L [id number] ####[facility] ([facility])[address] [place] [address] Troponin I.cardiac [Mass/Vol] 0.07 ng/mL High 0.00-0.04 [facility] Comment on above: Performed By: #### L [id number] #### [facility] ([facility]) [address] [place] [address] CBC W MANUAL DIFFon 08-25-19 ANISOCYTOSIS 1+ Normal [facility] Comment on above: Performed By: #### C BCISAIAH ####[facility] [id number] [place] [address]Dr. Yilan Yañez ATYPICAL LYMPH # Normal [facility] Comment on above: Performed By: #### C BCISAIAH ####[facility] [id number] [place] [id number]. Yilan Yañez ATYPICAL LYMPH % Normal The [facility] Comment on above: Performed By: #### C BCISAIAH ####[facility] Plhrfftjhg65[address] [place] [address]Dr. Yilan Yañez BAND # 0.2 103/ul Normal 0.0-0.3 [facility] Comment on above: Performed By: #### C ROSARIO ####[facility] Svdrglbqhf6144 [place] [address]Dr. Yilan Yañez BAND % 1 % Normal 0-5 The [facility] Comment on above: Performed By: #### C ROSARIO ####[facility] Wiqmlrhdoc[address] [place], [place] [address]Dr. Yiashley Yañez BASOM # 0.00 103/ul Normal 0.00-0.10 [facility] Comment on above: Performed By: #### C ROSARIO ####[facility] Sqfhbzqlay[address] [place], [place] [address]Dr. Nahed Yañez BASOM % 0.0 % Critically low 0.2-2.0 The [facility] Comment on above: Performed By: #### C ROSARIO ####[facility] Nzcrcayocy0737 [place] [address]Dr. Yilan Yañez BLAST # Normal [facility] Comment on above: Performed By: #### C ROSARIO ####[facility] Vqflpnrlxx2629 [place] [address]Dr. Yilan Yañez BLAST % Normal [facility] Comment on above: Performed By: #### C ROSARIO ####[facility] Nuequntbmw0121 [place] [address]Dr. Nahed Yañez CORRECTED WBC Normal 4.0-11.0 The [facility] Comment on above: Performed By: #### C ROSARIO ####[facility] Dxkfudefew4832 [place], [place] [address]Af. Nahed Yañez EOS # 0.00 103/ul Normal 0.00-0.70 [facility] Comment on above: Performed By: #### C ROSARIO ####[facility] Limmovwbrl1556 [place] [id number]. Nahed Yañez EOS% 0.0 % Critically low 0.9-7.0 The [facility] Comment on above: Performed By: #### C ROSARIO ####[facility] Mljkyungsz7249 [place] [id number]. Nahed Yañez HCT 33.9 % Critically low 36.0-48.0 The [facility] Comment on above: Performed By: #### C ROSARIO ####[facility] Nppnbyzawm0048 [place] [id number]. Nahed Yañez HGB 10.8 g/dl Critically low 12.0-16.0 The [facility] Comment on above: Performed By: #### C ROSARIO ####[facility] Riqouaidbq3106 [place] [id number]. Nahed Yañez HYPOCHROMASIA SLIGHT Normal The [facility] Comment on above: Performed By: #### C ROSARIO ####[facility] Jdeipjwynk0595 [place] [id number]. Nahed Yañez LYMPHM # 2.59 103/ul Normal 1.20-3.80 The [facility] Comment on above: Performed By: #### C ROSARIO ####[facility] Xvvnygxxin0228 [place] [id number]. Nahed Yañez LYMPHM% 16.0 % Critically low 20.5-60.0 The [facility] Comment on above: Performed By: #### C ROSARIO ####[facility] Jwegfroair0951 [place] [id number]. Nahed Yañez MCH 28.5 pg Normal 26.7-34.0 [facility] Comment on above: Performed By: #### C ROSARIO ####[facility] Tcbirwchlu8668 [place] [id number]. Nahed Yañez MCHC 31.9 g/dl Normal 29.9-35.2 The [facility] Comment on above: Performed By: #### C ROSARIO ####[facility] Ekapvjhtjo3484 [place] [id number]. Nahed Yañez MCV 89.4 fL Normal 81.0-99.0 [facility] Comment on above: Performed By: #### C ROSARIO ####[facility] Govpnrzvxh7158 [place] [id number]. Nahed Yañez METAMYELOCYTE # Normal [facility] Comment on above: Performed By: #### C ROSARIO ####[facility] Hmsndcyixr4067 [place] [id number]. Nahed Yañez METAMYELOCYTE % Normal [facility] Comment on above: Performed By: #### C ROSARIO ####[facility] Xctqpuwefi0296 [place] [id number]. Nahed Yañez MONOM# 1.30 103/ul Critically high 0.30-0.80 [facility] Comment on above: Performed By: #### C ROSARIO ####[facility] Lsldyiwsyc3569 [place] [id number]. Nahed Yañez MONOM% 8.0 % Normal 1.7-12.0 [facility] Comment on above: Performed By: #### C ROSARIO ####[facility] Qtnqdcmfcd2384 [place] [address]Dr. Nahed Yañez MPV 9.8 fL Normal 9.5-13.5 [facility] Comment on above: Performed By: #### C ROSARIO ####[facility] Itltoenkgy6189 [place] [id number]. Nahed Yañez MYELOCYTE # Normal [facility] Comment on above: Performed By: #### C ROSARIO ####[facility] Otqgguzofx9958 [place] [id number]. Nahed Yañez MYELOCYTE % Normal [facility] Comment on above: Performed By: #### C ROSARIO ####[facility] Jffduqewsl[address] [place], [place] [address]Dr. Nahed Yañez NRBC Normal [facility] Comment on above: Performed By: #### C ROSARIO ####[facility] Abkaxlzhub3498 [place], [place] [address]Xr. Nahed Yañez PLT 302 103/ul Normal 150-450 [facility] Comment on above: Performed By: #### C ROSARIO ####[facility] Vbeuhsauaq7468 [place], [place] [address]PiShaun Yañez RBC 3.79 106/ul Critically low 4.20-5.40 [facility] Comment on above: Performed By: #### C ROSARIO ####[facility] Pogrfflrof6758 [place], [place] [address]Ih. Nahed Yañez RDW 15.3 % Critically high 11.0-15.0 [facility] Comment on above: Performed By: #### C ROSARIO ####[facility] Oykhoyyjxb8706 [place], [place] [address]Vc. Nahed Yañez SEG # 12.15 103/ul Critically high 1.40-6.50 [facility] Comment on above: Performed By: #### C ROSARIO ####[facility] Mjosfggxne3270 [place], [place] [address]Lt. Nahed Yañez SEG % 75.0 % Normal 43.0-75.0 [facility] Comment on above: Performed By: #### C ROSARIO ####[facility] Tnavoksymy4153 [place], [place] [address]Dt. Nahed Yañez WBC 16.2 103/ul Critically high 4.0-11.0 [facility] Comment on above: Performed By: #### C ROSARIO ####[facility] Axlnlampqk0956 [place], [place] [address]YaShaun Nahed Yañez POINT OF CARE GLUCOSEon 08-12 Glucose [Mass/Vol] 221 mg/dL Critically high 74-106 [facility] Comment on above: Performed By: #### P OCGLUC ####[facility] Lejtjifjxd2904 [place], [place] [address]KiShaun Yañez PROF 14(COMP METB)on 023 Albumin [Mass/Vol] 2.2 g/dL Critically low 3.4-5.0 Th [facility] Comment on above: Performed By: #### C RENZO, JUDY ####[facility] Tkatpidmis6130 [place] [address]Dr. Nahed Yañez Albumin/Globulin [Mass ratio] 0.6 {ratio} Normal [facility] Comment on above: Performed By: #### C RENZO, JUDY ####[facility] Fiqgxjyajf4756 [place] [address]Dr. Nahed Yañez ALP [Catalytic activity/Vol] 87 U/L Normal 46-116 [facility] Comment on above: Performed By: #### C RENZO, JUDY ####[facility] Azalfxpyxv[address] [place], [place] [address]Dr. Nahed Yañez ALT [Catalytic activity/Vol] 17 U/L Normal 14-59 [facility] Comment on above: Performed By: #### C RENZO, JUDY ####[facility] Riatfmcasz4646 [place] [address]Dr. Nahed Yañez Anion gap [Moles/Vol] 9.4 mmol/L Normal [facility] Comment on above: Performed By: #### C RENZO, JUDY ####[facility] Tiqkwenjtp[address] [place], [place] [address]Dr. Nahed Yañez AST [Catalytic activity/Vol] 13 U/L Critically low 15-37 [facility] Comment on above: Performed By: #### C RENZO, JUDY ####[facility] Kfnymlkqyd8469 [place] [address]Dr. Nahed Yañez Bilirubin [Mass/Vol] 0.2 mg/dL Normal 0.2-1.0 [facility] Comment on above: Performed By: #### C RENZO, JUDY ####[facility] Bfowwcuqet5746 [place] [address]Dr. Nahed Yañez Calcium [Mass/Vol] 9.1 mg/dL Normal 8.5-10.1 [facility] Comment on above: Performed By: #### C RENZO, JUDY ####[facility] Lxmasmeids5013 [place] [address]Dr. Nahed Yañez Chloride [Moles/Vol] 103 mmol/L Normal 98-107 [facility] Comment on above: Performed By: #### C RENZO, JUDY ####[facility] Lhutvmxfxf7370 [place] [address]Dr. Nahed Yañez CO2 [Moles/Vol] 29.1 mmol/L Normal 21.0-32.0 The [facility] Comment on above: Performed By: #### C RENZO, JUDY ####[facility] Lwudhiwhmc8870 [place] [address]Dr. Nahed Yañez Creatinine [Mass/Vol] 1.05 mg/dL Critically high 0.55-1.02 The [facility] Comment on above: Performed By: #### C RENZO, JUDY ####[facility] Dqvwoerrjn4831 [place] [address]Dr. Nahed Yañez EGFR-AF POLISH >60 Normal >=60 The [facility] Comment on above: Performed By: #### C RENZO, JUDY ####[facility] Zxuomqkofu3282 [place] [address]Dr. Nahed Yañez EGFR-NON AF POLISH 53 mL/min/1.73m2 Critically low >=60 The [facility] Comment on above: Performed By: #### C RENZO, JUDY ####[facility] Jggamfrquv5876 [place] [address]Dr. Nahed Yañez Globulin (S) [Mass/Vol] 3.5 g/dL Normal [facility] Comment on above: Performed By: #### C RENZO, JUDY ####[facility] Tqudutzpgn4428 [place] [address]Dr. Nahed Yañez Glucose [Mass/Vol] 121 mg/dL Critically high 74-106 T [facility] Comment on above: Performed By: #### C RENZO, JUDY ####[facility] Hfglkhfixo5025 [place] [address]Dr. Nahed Yañez Potassium [Moles/Vol] 4.5 mmol/L Normal 3.5-5.1 [facility] Comment on above: Performed By: #### C RENZO, JUDY ####[facility] Cxmnvfybsl3485 [place] [address]Dr. Nahed Yañez Protein [Mass/Vol] 5.7 g/dL Critically low 6.4-8.2 Th [facility] Comment on above: Performed By: #### C MP, JUDY ####[facility] Qfhioveelv3495 [place] [address]Dr. Nahed Yañez Sodium [Moles/Vol] 137 mmol/L Normal 136-145 [facility] Comment on above: Performed By: #### C RENZO, JUDY ####[facility] Qalbmasvie3453 [place] [address]Dr. Nahed Yañez Urea nitrogen [Mass/Vol] 24.0 mg/dL Critically high 7.0-18.0 [facility] Comment on above: Performed By: #### C RENZO, JUDY ####[facility] Vshbrvmezf[address] [place], [place] [address]Dr. Nahed Yañez Urea nitrogen/Creatinine [Mass ratio] 22.9 mg/mg Normal [facility] Comment on above: Performed By: #### C RENZO, JUDY ####[facility] Umeyuxuvsx[address] [place], [place] [address]Dr. Nahed Otilio THEOPHYLLINEon 08-24-2022 THEOPHYLLINE 18.2 ug/mL Normal 10.0-20.0 [facility] Comment on above: Performed By: #### C RENZO, JUDY ####[facility] Lpecjjveeh[address] [place], [place] [address]Dr. Nahed Otiilo CBC W MANUAL DIFFon 08-24-19 23 ATYPICAL LYMPH # 0.20 103/ul Normal [facility] Comment on above: Performed By: #### C BCMAN ####[facility] Itkniynmuh06[address] [place], [place] [address]Dr. Nahed Otilio ATYPICAL LYMPH % 1 % Normal [facility] Comment on above: Performed By: #### C BCMAN ####[facility] Dyxeemuipq8019 [place] [address]Dr. Nahed Yañez BAND # 0.0 103/ul Normal 0.0-0.3 [facility] Comment on above: Performed By: #### C BCISAIAH ####[facility] Rxlceqeddk9387 [place] [id number]. Yiashley Yañez BAND % 0 % Normal 0-5 [facility] Comment on above: Performed By: #### C BCISAIAH ####[facility] Amvsmkzmdo2416 [place] [id number]. Yiashley Yañez BASOM # 0.00 103/ul Normal 0.00-0.10 [facility] Comment on above: Performed By: #### C BCISAIAH ####[facility] Lsojgqfwyc4726 [place] [address]Dr. Yiashley Yañez BASOM % 0.0 % Critically low 0.2-2.0 [facility] Comment on above: Performed By: #### C ROSARIO ####[facility] Cozemvfrdg1433 [place] [address]Dr. Yilan Yañez BLAST # Normal [facility] Comment on above: Performed By: #### C ROSARIO ####[facility] Zzrkjpfard6912 [place] [address]Dr. Yilan Yañez BLAST % Normal [facility] Comment on above: Performed By: #### C ROSARIO ####[facility] Dzueukpnte[address] [place], [place] [address]Dr. Nahed Yañez CORRECTED WBC Normal 4.0-11.0 The [facility] Comment on above: Performed By: #### C BCISAIAH ####[facility] Qjkgvldhah4367 [place] [address]Dr. Yiashley Yañez EOS # 0.00 103/ul Normal 0.00-0.70 [facility] Comment on above: Performed By: #### C BCISAIAH ####[facility] Kbjfoqmnyq[address] [place], [place] [address]Dr. Yiashley Yañez EOS% 0.0 % Critically low 0.9-7.0 [facility] Comment on above: Performed By: #### C BCISAIAH ####[facility] Tqxiepateb8414 [place] [address]Dr. Yilan Yañez HCT 33.5 % Critically low 36.0-48.0 [facility] Comment on above: Performed By: #### C ROSARIO ####[facility] Piteufuwju8658 [place], [place] [address]Ss. Nahed Yañez HGB 10.7 g/dl Critically low 12.0-16.0 [facility] Comment on above: Performed By: #### C ROSARIO ####[facility] Kvrydbzaip8740 [place], [place] [address]Xc. Nahed Yañez LYMPHM # 1.39 103/ul Normal 1.20-3.80 [facility] Comment on above: Performed By: #### C ROSARIO ####[facility] Qcehuexzob5554 [place], [place] [address]Ue. Nahed Yañez LYMPHM% 7.0 % Critically low 20.5-60.0 [facility] Comment on above: Performed By: #### C ROSARIO ####[facility] Uvisavnsal0963 [place], [place] [address]Eg. Nahed Yañez MCH 28.5 pg Normal 26.7-34.0 [facility] Comment on above: Performed By: #### C ROSARIO ####[facility] Kammgzpqys7303 [place], [place] [address]Cc. Nahed Yañez MCHC 31.9 g/dl Normal 29.9-35.2 [facility] Comment on above: Performed By: #### C ROSARIO ####[facility] Rqdhwzsshm6981 [place], [place] [address]Fn. Nahed Yañez MCV 89.1 fL Normal 81.0-99.0 [facility] Comment on above: Performed By: #### C ROSARIO ####[facility] Addheiuwcp0621 [place], [place] [address]Zl. Nahed Yañez METAMYELOCYTE # Normal [facility] Comment on above: Performed By: #### C ROSARIO ####[facility] Goxazhtfsg1254 [place], [place] [address]Ef. Nahed Yañez METAMYELOCYTE % Normal [facility] Comment on above: Performed By: #### C ROSARIO ####[facility] Pwooifaxxw1607 [place] [id number]. Nahed Yañez MONOM# 0.40 103/ul Normal 0.30-0.80 [facility] Comment on above: Performed By: #### C ROSARIO ####[facility] Tsguwynrwy2415 [place] [id number]. Nahed Yañez MONOM% 2.0 % Normal 1.7-12.0 [facility] Comment on above: Performed By: #### C ROSARIO ####[facility] Ennitndbir6806 [place] [address]Dr. Nahed Yañez MPV 10.0 fL Normal 9.5-13.5 [facility] Comment on above: Performed By: #### C ROSARIO ####[facility] Ngxqmqjwvo024[address] [place], [place] [address]Dr. Nahed Yañez MYELOCYTE # Normal [facility] Comment on above: Performed By: #### C ROSARIO ####[facility] Yybjlwkmat68[address] [place], [place] [address]Dr. Nahed Yañez MYELOCYTE % Normal [facility] Comment on above: Performed By: #### C ROSARIO ####[facility] Hkndkgkupl[address] [place], [place] [address]Dr. Nahed Yañez NRBC Normal [facility] Comment on above: Performed By: #### C ROSARIO ####[facility] Hihqnfjmdv4834 [place] [id number]. Nahed Yañez PLT 338 103/ul Normal 150-450 [facility] Comment on above: Performed By: #### C ROSARIO ####[facility] Mosqnlwyrf8[address] [place], [place] [address]Dr. Nahed Yaeñz RBC 3.76 106/ul Critically low 4.20-5.40 [facility] Comment on above: Performed By: #### C ROSARIO ####[facility] Xiidxlbunj4825[address] [place], [place] [address]Dr. Nahed Yañez RDW 15.3 % Critically high 11.0-15.0 [facility] Comment on above: Performed By: #### C ROSARIO ####[facility] Czvdheunpa4873 [place] [id number]. Nahed Yañez SEG # 17.91 103/ul Critically high 1.40-6.50 [facility] Comment on above: Performed By: #### C BCMAN ####[facility] Uftcjcrwyk3548 [place] [address]Dr. Nahed Yañez SEG % 90.0 % Critically high 43.0-75.0 [facility] Comment on above: Performed By: #### C BCMAN ####[facility] Hpjcqmdfqc5923 [place] [id number]. Nahed Otilio WBC 19.9 103/ul Critically high 4.0-11.0 [facility] Comment on above: Performed By: #### C BCMAN ####[facility] Pkmwulvieo6928 [place] [address]Dr. Nahed Yañez POINT OF CARE GLUCOSEon 08-12 Glucose [Mass/Vol] 200 mg/dL Critically high 74-106 [facility] Comment on above: Performed By: #### P OCGLUC ####[facility] Hcigephypz2795 [place] [address]Dr. Nahed Yañez Glucose [Mass/Vol] 131 mg/dL Critically high 74-106 [facility] Comment on above: Performed By: #### P OCGLUC ####[facility] Lvjoazefvm4251 [place] [address]Dr. Nahed Otilio Glucose [Mass/Vol] 176 mg/dL Critically high 74-106 [facility] Comment on above: Performed By: #### P OCGLUC ####[facility] Djnvmgmohl0378 [place] [address]Dr. Nahed Yañez PROF 14(COMP METB)on 023 Albumin [Mass/Vol] 2.2 g/dL Critically low 3.4-5.0 [facility] Comment on above: Performed By: #### T RAFITA CMP ####[facility] Csckcxggsr2295 [place] [address]Dr. Nahed Yañez Albumin/Globulin [Mass ratio] 0.6 {ratio} Normal [facility] Comment on above: Performed By: #### Nydia ELLER, CMP ####[facility] Szhinpypjr0821 [place] [id number]. Nahed Yañez ALP [Catalytic activity/Vol] 101 U/L Normal 46-116 [facility] Comment on above: Performed By: #### Nydia ELLER, CMP ####[facility] Vtmxwoikmy9529 [place] [id number]. Nahed Otilio ALT [Catalytic activity/Vol] 19 U/L Normal 14-59 [facility] Comment on above: Performed By: #### Nydia ELLER, CMP ####[facility] Ajrdmolrue4745 [place] [id number]. Rosemarieashley Otilio Anion gap [Moles/Vol] 12.0 mmol/L Normal [facility] Comment on above: Performed By: #### Nydia ELLER CMP ####[facility] Obfoctxdsh8644 [place] [address]Dr. Rosemarieashley Yañez AST [Catalytic activity/Vol] 14 U/L Critically low 15-37 [facility] Comment on above: Performed By: #### Nydia ELLER CMP ####[facility] Uwvveiwhua0711 [place] [id number]. Nahed Otilio Bilirubin [Mass/Vol] 0.2 mg/dL Normal 0.2-1.0 [facility] Comment on above: Performed By: #### Nydia ELLER, CMP ####[facility] Hwonyhmztu3384 [place] [address]Dr. Nahed Yañez Calcium [Mass/Vol] 9.5 mg/dL Normal 8.5-10.1 [facility] Comment on above: Performed By: #### Nydia ELLER, CMP ####[facility] Vzhrkpjszy0506 [place] [id number]. Nahed Yañez Chloride [Moles/Vol] 105 mmol/L Normal 98-107 [facility] Comment on above: Performed By: #### Nydia ELLER, CMP ####[facility] Wefzbcutdd1285 [place] [id number]. Nahed Yañez CO2 [Moles/Vol] 27.9 mmol/L Normal 21.0-32.0 [facility] Comment on above: Performed By: #### Nydia ELLER CMP ####[facility] Fswylfujsc8471 [place] [address]Dr. Nahed Yañez Creatinine [Mass/Vol] 1.08 mg/dL Critically high 0.55-1.02 [facility] Comment on above: Performed By: #### Nydia ELLER CMP ####[facility] Pkoyawueor3016 [place] [address]Dr. Nahed Yañez EGFR-AF POLISH >60 Normal >=60 [facility] Comment on above: Performed By: #### Nyida ELLER CMP ####[facility] Cuyuhacupa[address] [place], [place] [address]Dr. Nahed Yañez EGFR-NON AF POLISH 52 mL/min/1.73m2 Critically low >=60 [facility] Comment on above: Performed By: #### Nydia ELLER CMP ####[facility] Jpzlvolyqj22[address] [place], [place] [address]Dr. Nahed Yañez Globulin (S) [Mass/Vol] 3.7 g/dL Normal [facility] Comment on above: Performed By: #### Nydia ELLER CMP ####[facility] Gqmjzoqlki4[address] [place], [place] [address]Dr. Nahed Yañez Glucose [Mass/Vol] 182 mg/dL Critically high 74-106 [facility] Comment on above: Performed By: #### Nydia ELLER CMP ####[facility] Qkrmwnedcm8050[address] [place], [place] [address]Dr. Nahed Yañez Potassium [Moles/Vol] 3.9 mmol/L Normal 3.5-5.1 [facility] Comment on above: Performed By: #### Nydia ELLER CMP ####[facility] Vetukkjdcu665[address] [place], [place] [address]Dr. Nahed Yañez Protein [Mass/Vol] 5.9 g/dL Critically low 6.4-8.2 Th [facility] Comment on above: Performed By: #### Nydia ELLER CMP ####[facility] Efzzydhltj13[address] [place], [place] [address]Dr. Nahed Yañez Sodium [Moles/Vol] 141 mmol/L Normal 136-145 [facility] Comment on above: Performed By: #### Nydia ELLER, CMP ####[facility] Axdxqmwcjy59[address] [place], [place] [address]Dr. Nahed Yañez Urea nitrogen [Mass/Vol] 20.0 mg/dL Critically high 7.0-18.0 [facility] Comment on above: Performed By: #### Nydia ELLER, CMP ####[facility] Latqqpwita[address] [place], [place] [address]Dr. Nahed Yañez Urea nitrogen/Creatinine [Mass ratio] 18.5 mg/mg Normal [facility] Comment on above: Performed By: #### Nydia ELLER CMP ####[facility] Ezdyenostk6[address] [place], [place] [address]Dr. Nahed Yañez THEOPHYLLINEon 08-23-2022 THEOPHYLLINE 22.9 ug/mL Critically high 10.0-20.0 [facility] Comment on above: Performed By: #### Nydia ELLER CMP ####[facility] Tvsqptcuyj[address] [place], [place] [address]Dr. Nahed Yañez CBC AUTO DIFFon 08-22-2022 BASO # 0.0 103/ul Normal 0.0-0.1 [facility] Comment on above: Performed By: #### C BC ####[facility] Lmykhgrbio[address] [place], [place] [address]Dr. Nahed Otilio Basophils/100 WBC (Bld) 0.1 % Critically low 0.2-2.0 [facility] Comment on above: Performed By: #### C BC ####[facility] Fydaqkkzcz39[address] [place], [place] [address]Dr. Nahed Otilio EO # 0.0 103/ul Normal 0.0-0.7 [facility] Comment on above: Performed By: #### C BC ####[facility] Gziipflbmm022[address] [place], [place] [address]Dr. Nahed Otilio Eosinophils/100 WBC (Bld) 0.0 % Critically low 0.9-7.0 [facility] Comment on above: Performed By: #### C BC ####[facility] Gqrbsydoxk9077 [place] [address]Dr. Nahed Yañez Erythrocyte distribution width (RBC) [Ratio] 15.1 % Critically high 11.0-15.0 [facility] Comment on above: Performed By: #### C BC ####[facility] Wnpioxesdw9011 [place] [address]Dr. Nahed Yañez Hematocrit (Bld) [Volume fraction] 31.4 % Critically low 36.0-48.0 [facility] Comment on above: Performed By: #### C BC ####[facility] Wzbyzrohdi[address] [place], [place] [address]Dr. Nahed Yañez Hemoglobin (Bld) [Mass/Vol] 10.2 g/dL Critically low 12.0-16.0 [facility] Comment on above: Performed By: #### C BC ####[facility] Ingqhvdkgv7137[address] [place], [place] [address]Dr. Nahed Yañez IG # 0.08 10e3/ul Critically high 0.00-0.03 [facility] Comment on above: Performed By: #### C BC ####[facility] Yuytwtckrk1980[address] [place], [place] [address]Dr. Nahed Yañez IG % 0.6 % Critically high 0.0-0.5 [facility] Comment on above: Performed By: #### C BC ####[facility] Hgnourpkvz1810[address] [place], [place] [address]Dr. Nahed Yañez LYMPH # 0.9 103/ul Critically low 1.2-3.8 [facility] Comment on above: Performed By: #### C BC ####[facility] Izkrgmkiep6840[address] [place], [place] [address]Dr. Nahed Yañez Lymphocytes/100 WBC (Bld) 6.1 % Critically low 20.5-60.0 [facility] Comment on above: Performed By: #### C BC ####[facility] Cocewjldwk3338[address] [place], [place] [address]Dr. Rosemarieashley Yañez MANUAL DIFF REQ NO Normal [facility] Comment on above: Performed By: #### C BC ####[facility] Lnumvjsilf3342 [place] [id number]. Nahed Yañez MCH (RBC) [Entitic mass] 28.3 pg Normal 26.7-34.0 [facility] Comment on above: Performed By: #### C BC ####[facility] Nswycwyuoj1538 [place] [id number]. Nahed Yañez MCHC (RBC) [Mass/Vol] 32.5 g/dL Normal 29.9-35.2 [facility] Comment on above: Performed By: #### C BC ####[facility] Tjwtxtsbed3316 [place] [address]Dr. Nahed Otilio MCV (RBC) [Entitic vol] 87.0 fL Normal 81.0-99.0 [facility] Comment on above: Performed By: #### C BC ####[facility] Ivvjneippf5707[address] [place], [place] [address]Dr. Nahed Otilio MONO # 0.7 103/ul Normal 0.3-0.8 [facility] Comment on above: Performed By: #### C BC ####[facility] Uqdmecxgxx[address] [place], [place] [address]Dr. Nahed Otilio Monocytes/100 WBC (Bld) 5.1 % Normal 1.7-12.0 [facility] Comment on above: Performed By: #### C BC ####[facility] Usjvyepolv8870 [place] [address]Dr. Nahed Yañez NEUT # 12.2 103/ul Critically high 1.4-6.5 [facility] Comment on above: Performed By: #### C BC ####[facility] Mavnfsfcjs[address] [place], [place] [id number] Rosemarieashley Yañez Neutrophils/100 WBC (Bld) 88.1 % Critically high 43.0-75.0 [facility] Comment on above: Performed By: #### C BC ####[facility] Posacamcpk9355[address] [place], [place] [address]DrShaun Rosemarieashley Yañez Platelet mean volume (Bld) [Entitic vol] 10.2 fL Normal 9.5-13.5 [facility] Comment on above: Performed By: #### C BC ####[facility] Lstaaroldp1583 [place] [id number]. Nahed Yañez PLT 271 103/ul Normal 150-450 [facility] Comment on above: Performed By: #### C BC ####[facility] Ddqanbsnls8639 [place] [id number]. Nahed Yañez RBC 3.61 106/ul Critically low 4.20-5.40 [facility] Comment on above: Performed By: #### C BC ####[facility] Wkarnatats1886 [place] [id number]. Nahed Yañez WBC 13.9 103/ul Critically high 4.0-11.0 [facility] Comment on above: Performed By: #### C BC ####[facility] Jjqrmrhdgj2698 [place] [id number]. Nahed Yañez CULTURE URINEon 08-22-2022 CULTURE URINE Culture Observations : LIGHT GROWTH OF MIXED GENITAL MIGUEL. NO POTENTIAL PATHOGENS SEEN. Normal [facility] Comment on above: Performed By: #### U RCX ####[facility] Zhnsvxbcyb4732[address] [place], [place] [address]Dr. Nahed Yañez POINT OF CARE GLUCOSEon 08-12 Glucose [Mass/Vol] 252 mg/dL Critically high 74-106 [facility] Comment on above: Performed By: #### P OCGLUC ####[facility] Gqfsozcnrk2258 [place] [id number]. Nahed Yañez Glucose [Mass/Vol] 293 mg/dL Critically high 74-106 [facility] Comment on above: Performed By: #### P OCGLUC ####[facility] Vuuvnxbzqe332[address] [place], [place] [address]Dr. Nahed Yañez Glucose [Mass/Vol] 292 mg/dL Critically high 74-106 [facility] Comment on above: Performed By: #### P OCGLUC ####[facility] Bfjkozoljy744[address] [place], [place] [address]DrShaun Yañez PROF 14(COMP METB)on 023 Albumin [Mass/Vol] 2.1 g/dL Critically low 3.4-5.0 [facility] Comment on above: Performed By: #### C MP ####[facility] Qoeubcxwve8734 [place] [address]Dr. Nahed Yañez Albumin/Globulin [Mass ratio] 0.5 {ratio} Normal [facility] Comment on above: Performed By: #### C MP ####[facility] Abjycnhcri539[address] [place], [place] [address]Dr. Nahed Yañez ALP [Catalytic activity/Vol] 92 U/L Normal 46-116 [facility] Comment on above: Performed By: #### C MP ####[facility] Ctamesubvr8660[address] [place], [place] [address]Dr. Nahed Yañez ALT [Catalytic activity/Vol] 19 U/L Normal 14-59 [facility] Comment on above: Performed By: #### C MP ####[facility] Zgdddssymu1624[address] [place], [place] [address]Dr. Nahed Yañez Anion gap [Moles/Vol] 15.9 mmol/L Normal [facility] Comment on above: Performed By: #### C MP ####[facility] Zepxufgrny896[address] [place], [place] [address]Dr. Nahed Yañez AST [Catalytic activity/Vol] 8 U/L Critically low 15-37 [facility] Comment on above: Performed By: #### C MP ####[facility] Gbocdmowff4085[address] [place], [place] [address]Dr. Nahed Yañez Bilirubin [Mass/Vol] 0.3 mg/dL Normal 0.2-1.0 [facility] Comment on above: Performed By: #### C MP ####[facility] Jzmrkwmzrn437[address] [place], [place] [address]Dr. Nahed Yañez Calcium [Mass/Vol] 9.4 mg/dL Normal 8.5-10.1 [facility] Comment on above: Performed By: #### C MP ####[facility] Ehbqrtayxh4398[address] [place], [place] [address]Dr. Nahed Yañez Chloride [Moles/Vol] 101 mmol/L Normal 98-107 [facility] Comment on above: Performed By: #### C MP ####[facility] Sjygdiyaur1203 [place] [address]Dr. Nahed Otilio CO2 [Moles/Vol] 22.5 mmol/L Normal 21.0-32.0 [facility] Comment on above: Performed By: #### C MP ####[facility] Okdcabajxa790[address] [place], [place] [address]Dr. Nahed Otilio Creatinine [Mass/Vol] 1.16 mg/dL Critically high 0.55-1.02 [facility] Comment on above: Performed By: #### C MP ####[facility] Mtrfhusqxs089[address] [place], [place] [address]Dr. Nahed Yañez EGFR-AF POLISH 58 mL/min/1.73m2 Critically low >=60 [facility] Comment on above: Performed By: #### C MP ####[facility] Ieaoimobqz8118[address] [place], [place] [address]Dr. Nahed Otilio EGFR-NON AF POLISH 47 mL/min/1.73m2 Critically low >=60 [facility] Comment on above: Performed By: #### C MP ####[facility] Ngmjyelyor3907[address] [place], [place] [address]Dr. Nahed Yañez Globulin (S) [Mass/Vol] 4.2 g/dL Normal [facility] Comment on above: Performed By: #### C MP ####[facility] Bjlgmhstbc100[address] [place], [place] [address]Dr. Nahed Yañez Glucose [Mass/Vol] 409 mg/dL Critically high 74-106 [facility] Comment on above: Performed By: #### C MP ####[facility] Brbjqfsrhh1908[address] [place], [place] [address]Dr. Nahed Yañez Potassium [Moles/Vol] 3.4 mmol/L Critically low 3.5-5.1 [facility] Comment on above: Performed By: #### C MP ####[facility] Tcvzeaqymd353[address] [place], [place] [address]Dr. Nahed Yañez Protein [Mass/Vol] 6.3 g/dL Critically low 6.4-8.2 Th e [facility] Comment on above: Performed By: #### C MP ####[facility] Rtmhyjfzbw946[address] [place], [place] [address]Dr. Nahed Yañez Sodium [Moles/Vol] 136 mmol/L Normal 136-145 [facility] Comment on above: Performed By: #### C MP ####[facility] Diisdugqzj1599[address] [place], [place] [address]Dr. Nahed Yañez Urea nitrogen [Mass/Vol] 16.0 mg/dL Normal 7.0-18.0 [facility] Comment on above: Performed By: #### C MP ####[facility] Jvqvmbujuw6609[address] [place], [place] [address]Dr. Nahed Yañez Urea nitrogen/Creatinine [Mass ratio] 13.8 mg/mg Normal [facility] Comment on above: Performed By: #### C MP ####[facility] Vatnesfmlc1165[address] [place], [place] [address]Dr. Nahed Yañez THEOPHYLLINEon 08-22-2022 THEOPHYLLINE 13.4 ug/mL Normal 10.0-20.0 [facility] Comment on above: Performed By: #### T RAFITA ####[facility] Lurezxfuqp7625[address] [place], [place] [address]Dr. Nahed Yañez UA RANDOM W/MICROSCOPICon BACTERIA NONE SEEN Normal NONE SEEN [facility] Comment on above: Performed By: #### U AMIC ####[facility] Yeqyqicrlg534[address] [place], [place] [address]Dr. Nahed Yañez Bilirubin Ql (U) Negative Normal NEGATIVE [facility] Comment on above: Performed By: #### U AMIC ####[facility] Qcehgwvksz747[address] [place], [place] [address]Dr. Nahed Yañez CAST NONE SEEN Normal NONE SEEN [facility] Comment on above: Performed By: #### U AMIC ####[facility] Pfwnpzigsy597[address] [place], [place] [address]Dr. Nahed Yañez Clarity (U) CLEAR Normal CLEAR [facility] Comment on above: Performed By: #### U AMIC ####[facility] Qifcdtomzb7518 [place] [address]Dr. Nahed Yañez Color (U) LT. YELLOW Normal YELLOW [facility] Comment on above: Performed By: #### U AMIC ####[facility] Qhhycxkszd9396 [place] [id number]. Nahed Yañez Crystals LM Nom (Urine sed) NONE SEEN Normal NONE SEEN [facility] Comment on above: Performed By: #### U AMIC ####[facility] Iydrnvevyq1916 [place] [address]Dr. Nahed Yañez Epithelial cells LM Ql (Urine sed) RARE Normal NONE SEEN /RARE [facility] Comment on above: Performed By: #### U AMIC ####[facility] Inpudlxtej7777 [place] [address]Dr. Nahed Yañez Glucose Ql (U) 100 mg/dl Abnormal NEGATIVE [facility] Comment on above: Performed By: #### U AMIC ####[facility] Irsjfdmbls697[address] [place], [place] [address]Dr. Yiashley Yañez Hemoglobin Ql (U) Negative Normal NEGATIVE [facility] Comment on above: Performed By: #### U AMIC ####[facility] Xylfxkwgmo8738[address] [place], [place] [address]Dr. Yiashley Yañez Ketones Ql (U) Negative Normal NEGATIVE [facility] Comment on above: Performed By: #### U AMIC ####[facility] Bbugtzjlua140[address] [place], [place] [address]Dr. Yilan Yañez LEUKOCYTES Negative Normal NEGATIVE [facility] Comment on above: Performed By: #### U AMIC ####[facility] Xsohhwawid9612 [place] [address]Dr. Yilan Yañez MUCOUS NONE SEEN Normal NONE SEEN [facility] Comment on above: Performed By: #### U AMIC ####[facility] Vnctrtommk9687 [place] [address]Dr. Yilan Yañez Nitrite Ql (U) Negative Normal NEGATIVE [facility] Comment on above: Performed By: #### U AMIC ####[facility] Ecgftplhut0103 [place] [address]Dr. Nahed Yañez pH (U) 5.5 [pH] Normal 5-9 [facility] Comment on above: Performed By: #### U AMIC ####[facility] Tgrqriyklt2555 [place] [address]Dr. Nahed Yañez RBC NONE SEEN Abnormal 0-2 [facility] Comment on above: Performed By: #### U AMIC ####[facility] Pdkckvyjxy6095 [place] [address]Dr. Nahed Yañez SPEC GRAVITY 1.020 Normal 1.005-<=1.02 5 [facility] Comment on above: Performed By: #### U AMIC ####[facility] Nuqoapdfxz0618[address] [place], [place] [address]Dr. Nahed Yañez UA PROTEIN Negative Normal NEGATIVE/ TRACE [facility] Comment on above: Performed By: #### U AMIC ####[facility] Rqahzxthgs932[address] [place], [place] [address]Dr. Nahed Yañez Urobilinogen Qn (U) 0.2 {Alem'U}/dL Normal 0.2 - 1. 0 [facility] Comment on above: Performed By: #### U AMIC ####[facility] Tkuleatvhp1760[address] [place], [place] [address]Dr. Nahed Yañez WBC NONE SEEN Normal NONE SEEN [facility] Comment on above: Performed By: #### U AMIC ####[facility] Hbskwoiwzc4730[address] [place], [place] [address]Dr. Nahed Yañez BLOOD GASES BTYon 08-21-2022 02 MODE ROOM AIR Normal [facility] Comment on above: Performed By: #### A BG ####[facility] Seeoonghjw027[address] [place], [place] [address]Dr. Nahed Yañez ALLENS TEST Positive Normal [facility] Comment on above: Performed By: #### A BG ####[facility] Irczcfamlu3544[address] [place], [place] [address]Dr. Nahed Yañez Base excess Calc (Bld) [Moles/Vol] 3.2 mmol/L Critically high -2.0-2.0 [facility] Comment on above: Performed By: #### A BG ####[facility] Znbmgemmct8493 [place] [address]Dr. Nahed Yañez BIPAP PRESSURE Normal [facility] Comment on above: Performed By: #### A BG ####[facility] Ettogcmjbx7024 [place] [address]Dr. Nahed Yañez CPAP Normal [facility] Comment on above: Performed By: #### A BG ####[facility] Skqzlxddmm612[address] [place], [place] [address]Dr. Nahed Yañez FIO2 Normal [facility] Comment on above: Performed By: #### A BG ####[facility] Tctqxnssqr5339[address] [place], [place] [address]Dr. Nahed Yañez HCO3 (Bld) [Moles/Vol] 26.8 mmol/L Critically high 22.0-26 .0 [facility] Comment on above: Performed By: #### A BG ####[facility] Fvlbzhejum939[address] [place], [place] [address]Dr. Nahed Yañez LPM Normal [facility] Comment on above: Performed By: #### A BG ####[facility] Zccseokyhy405[address] [place], [place] [address]Dr. Nahed Yañez MINUTE VOLUME Normal [facility] Comment on above: Performed By: #### A BG ####[facility] Sioemowyzw9455[address] [place], [place] [address]Dr. Nahed Yañez Oxygen (Bld) [Partial pressure] 55.1 mm[Hg] Critically low 80.0-100.0 [facility] Comment on above: Performed By: #### A BG ####[facility] Guxbghynev2405[address] [place], [place] [address]Dr. Nahed Yañez Oxygen saturation in Blood 90.2 % Critically low 95.0-100.0 [facility] Comment on above: Performed By: #### A BG ####[facility] Fsmswwtoiv3465[address] [place], [place] [address]Dr. Nahed Yañez PCO2 36.7 mmHg Normal 35.0-45.0 [facility] Comment on above: Performed By: #### A BG ####[facility] Ybxvhfbepd6870 [place] [address]Dr. Nahed Yañez PEEP [facility] Comment on above: Performed By: #### A BG ####[facility] Rzkguyslll0490 [place] [address]Dr. Nahed Yañez pH (Bld) 7.472 [pH] Critically high 7.350-7.450 [facility] Comment on above: Performed By: #### A BG ####[facility] Fsabwzcvto9746 [place] [address]Dr. Nahed Yañez PIP [facility] Comment on above: Performed By: #### A BG ####[facility] Wparcghpbq6139[address] [place], [place] [address]Dr. Nahed Yañez PS [facility] Comment on above: Performed By: #### A BG ####[facility] Eqzysvnsxb142[address] [place], [place] [address]Dr. Nahed Yañez PUNCTURE SITE LR Normal [facility] Comment on above: Performed By: #### A BG ####[facility] Yhewxeyidw455[address] [place], [place] [address]Dr. Nahed Yañez RATE [facility] Comment on above: Performed By: #### A BG ####[facility] Vzndhchlmt158[address] [place], [place] [address]Dr. Nahed Yañez VENT MODE [facility] Comment on above: Performed By: #### A BG ####[facility] Vukasgnqcy2035 [place] [address]Dr. Nahed Yañez VT [facility] Comment on above: Performed By: #### A BG ####[facility] Cnvsnuhuri390[address] [place], [place] [address]Dr. Nahed Yañez BNPon 08-21-2022 Natriuretic peptide B (Bld) [Mass/Vol] 131.0 pg/mL Normal <=900.0 [facility] Comment on above: Performed By: #### B BALING PRESS OPERATOR ####[facility] Xxgxvwahjm8543 [place] [id number]. Nahed Yañez CARDIAC FRANCISCO 3-6on 3 CK [Catalytic activity/Vol] 17 U/L Critically low 26-192 [facility] Comment on above: Performed By: #### C MREP ####[facility] Ykyvpjvkvr3516 [place] [id number]. Nahed Yañez CK.MB [Mass/Vol] ng/mL Normal <=3.60 The [facility] Comment on above: Performed By: #### C MREP ####[facility] Nfrofzlwdq[address] [place], [place] [address]Dr. Nahed Yañez HSTROP 25.1 pg/mL Normal 4.0-51.3 [facility] Comment on above: Result Comment: CUT- OFF POINTS HAVE BEEN ESTABLISHED BASED ON THE FOURTH UNIVERSAL DEFINITIONS OF MYOCARDIALINFARCTION. THE UPPER REFERENCE LIMIT (URL) OF TROPONIN, DEFINED THE 99TH PERCENTILE OFcTnI DISTRIBUTION IN A REFERENCE POPULATION, HAS BEEN CONFIRMED THE DECISION THRESHOLDFOR OR DIAGNOSIS. Performed By: #### C MREP ####[facility] Nmvjjaqwlr[address] [place], [place] [id number]. Nahed Yañez CARDIAC FRANCISCO ADMITon 023 CK [Catalytic activity/Vol] 39 U/L Normal 26-192 [facility] Comment on above: Performed By: #### ERICK Ordonez MP ####[facility] Vdzhhpthtn4096 [place] [id number]. Nahed Yañez CK.MB [Mass/Vol] ng/mL Normal <=3.60 The [facility] Comment on above: Performed By: #### B RENZO, CMADM ####[facility] Ixdqoeorwk2602 [place] [id number]. Nahed Yañez HSTROP 24.4 pg/mL Normal 4.0-51.3 [facility] Comment on above: Result Comment: CUT- OFF POINTS HAVE BEEN ESTABLISHED BASED ON THE FOURTH UNIVERSAL DEFINITIONS OF MYOCARDIALINFARCTION. THE UPPER REFERENCE LIMIT (URL) OF TROPONIN, DEFINED THE 99TH PERCENTILE OFcTnI DISTRIBUTION IN A REFERENCE POPULATION, HAS BEEN CONFIRMED THE DECISION THRESHOLDFOR OR DIAGNOSIS. Performed By: #### B RENZO CMADM ####[facility] Ntnztbkvwf1394 [place] [id number]. Nahed Otilio ANDRE 48 ng/mL Normal 9-82 [facility] Comment on above: Performed By: #### B ERICK MULLER ####[facility] Wlsdmrbknt7356 [place] [id number]. Nahed Yañez CBC AUTO DIFFon 08-21-2022 BASO # 0.0 103/ul Normal 0.0-0.1 [facility] Comment on above: Performed By: #### C BC ####[facility] Kchsnsxmbf[address] [place], [place] [address]Dr. Nahed Yañez Basophils/100 WBC (Bld) 0.2 % Normal 0.2-2.0 [facility] Comment on above: Performed By: #### C BC ####[facility] Msyvpdukof319[address] [place], [place] [address]Dr. Nahed Yañez EO # 0.3 103/ul Normal 0.0-0.7 [facility] Comment on above: Performed By: #### C BC ####[facility] Dtueewufjc52[address] [place], [place] [address]Dr. Nahed Yañez Eosinophils/100 WBC (Bld) 1.5 % Normal 0.9-7.0 [facility] Comment on above: Performed By: #### C BC ####[facility] Rjmywaksfq13[address] [place], [place] [address]Dr. Nahed Yañez Erythrocyte distribution width (RBC) [Ratio] 15.0 % Normal 11.0-15.0 [facility] Comment on above: Performed By: #### C BC ####[facility] Asnwwxzyhk1534[address] [place], [place] [address]Dr. Nahed Yañez Hematocrit (Bld) [Volume fraction] 41.4 % Normal 36.0-48.0 [facility] Comment on above: Performed By: #### C BC ####[facility] Jbzjyxzexd112[address] [place], [place] [address]Dr. Nahed Yañez Hemoglobin (Bld) [Mass/Vol] 13.5 g/dL Normal 12.0-16.0 [facility] Comment on above: Performed By: #### C BC ####[facility] Bvaelpiumr5561 [place] [id number]. Nahed Yañez IG # 0.18 10e3/ul Critically high 0.00-0.03 [facility] Comment on above: Performed By: #### C BC ####[facility] Dpphtoqjva1079 [place] [id number]. Nahed Yañez IG % 1.0 % Critically high 0.0-0.5 [facility] Comment on above: Performed By: #### C BC ####[facility] Ebggfdcxkf9769 [place] [address]Dr. Nahed Yañez LYMPH # 2.5 103/ul Normal 1.2-3.8 [facility] Comment on above: Performed By: #### C BC ####[facility] Aasqudjlis7686 [place] [address]Dr. Nahed Yañez Lymphocytes/100 WBC (Bld) 14.0 % Critically low 20.5-60.0 [facility] Comment on above: Performed By: #### C BC ####[facility] Cdltineogf9383 [place] [id number] Yañez MANUAL DIFF REQ NO Normal [facility] Comment on above: Performed By: #### C BC ####[facility] Haldptgakr7493 [place] [id number]. Nahed Yañez MCH (RBC) [Entitic mass] 28.5 pg Normal 26.7-34.0 [facility] Comment on above: Performed By: #### C BC ####[facility] Kxocmlrrxn2509 [place] [id number]. Rosemarieashley Yañez MCHC (RBC) [Mass/Vol] 32.6 g/dL Normal 29.9-35.2 [facility] Comment on above: Performed By: #### C BC ####[facility] Nucbyziymm1535 [place] [id number]. Nahed Yañez MCV (RBC) [Entitic vol] 87.3 fL Normal 81.0-99.0 [facility] Comment on above: Performed By: #### C BC ####[facility] Riuyulednm0849 [place] [id number]. Nahed Yañez MONO # 1.2 103/ul Critically high 0.3-0.8 [facility] Comment on above: Performed By: #### C BC ####[facility] Lxgsipncef2293 [place] [id number]. Nahed Yañez Monocytes/100 WBC (Bld) 6.8 % Normal 1.7-12.0 [facility] Comment on above: Performed By: #### C BC ####[facility] Fbpjbmdnre4810 [place] [id number]. Nahed Yañez NEUT # 13.8 103/ul Critically high 1.4-6.5 The [facility] Comment on above: Performed By: #### C BC ####[facility] Gvtyttqmdw7722 [place] [address]Dr. Nahed Yañez Neutrophils/100 WBC (Bld) 76.5 % Critically high 43.0-75.0 [facility] Comment on above: Performed By: #### C BC ####[facility] Jhpurbzrlr2316 [place] [address]Dr. Nahed Yañez Platelet mean volume (Bld) [Entitic vol] 10.5 fL Normal 9.5-13.5 [facility] Comment on above: Performed By: #### C BC ####[facility] Dhmttpcuus4444 [place] [id number]. Nahed Yañez PLT 319 103/ul Normal 150-450 [facility] Comment on above: Performed By: #### C BC ####[facility] [address] [place], [place] [id number]. Nahed Yañez RBC 4.74 106/ul Normal 4.20-5.40 [facility] Comment on above: Performed By: #### C BC ####[facility] [address] [place] [id number]. Nahed Yañez WBC 18.0 103/ul Critically high 4.0-11.0 The [facility] Comment on above: Performed By: #### C BC ####[facility] [address] [place] [id number]. Nhaed Yañez CULTURE BLOODon 08-21-2022 Microscopic examination of blood, culture Culture Observations: NO GROWTH AT 5 DAYS. Normal [facility] Comment on above: Performed By: #### B LDCX2 ####[facility] [address]zb[address] [place] [id number]. Nahed Yañez Microscopic examination of blood, culture Culture Observations: NO GROWTH AT 5 DAYS. Normal [facility] Comment on above: Performed By: #### B LDCX1 ####[facility] [address] [place] [id number]. Nahed Yañez [facility] 08-12 SARS-CoV-2 (COVID-19) RNA MIRNA+probe Ql (Unsp spec) Not detected Normal NOT DETECTED [facility] Comment on above: Result Comment: When diagnostic [...] for this test is supported by the [place] of Health and Human Service's declaration that [...] be used). Performed By: #### C VDTBH ####[facility] [address] [place] [id number]. Nahed Yañez LACTATE/LACTIC ACIDon 2022 Lactate [Moles/Vol] 1.1 mmol/L Normal 0.4-2.[address] [facility] Comment on above: Performed By: #### L ACT ####[facility] [address] [place] [address]Dr. Nahed Yañez Lactate [Moles/Vol] 2.4 mmol/L Critically high 0.4-2.0 [facility] Comment on above: Performed By: #### L ACT ####[facility] [address] [place] [address]Dr. Nahed Yañez POINT OF CARE GLUCOSEon 08-12 Glucose [Mass/Vol] 453 mg/dL Critically high 74-106 [facility] Comment on above: Performed By: #### P OCGLUC ####[facility] X[address] [place], [place] [address]Dr. Nahed Yañez Glucose [Mass/Vol] 358 mg/dL Critically high 74-106 [facility] Comment on above: Performed By: #### P OCGLUC ####[facility] [address] [place], [place] [address]Dr. Nahed Yañez Glucose [Mass/Vol] 98 mg/dL Normal 74-106 [facility] Comment on above: Performed By: #### P OCGLUC ####[facility] [address] [place], [place] [address]Dr. Nahed Yañez PROF CHEM 8 (BAS METB)on Anion gap [Moles/Vol] 14.7 mmol/L Normal [facility] Comment on above: Performed By: #### B MP, CMADM ####[facility] [address] [place], [place] [address]Dr. Nahed Yañez Calcium [Mass/Vol] 9.6 mg/dL Normal 8.5-10.1 [facility] Comment on above: Performed By: #### B MP, CMADM ####[facility] [address] [place], [place] [address]Dr. Nahed Yañez Chloride [Moles/Vol] 95 mmol/L Critically low 98-107 [facility] Comment on above: Performed By: #### B MP, CMADM ####[facility] [address] [place], [place] [address]Dr. Nahed Yañez CO2 [Moles/Vol] 25.2 mmol/L Normal 21.0-32.0 [facility] Comment on above: Performed By: #### ERICK Ordonez MP ####[facility] [address] [place] [address]Dr. Nahed Yañez Creatinine [Mass/Vol] 1.15 mg/dL Critically high 0.55-1.02 [facility] Comment on above: Performed By: #### ERICK Ordonez MP ####[facility] [address] [place], [place] [address]Dr. Nahed Yañez EGFR-AF POLISH 58 mL/min/1.73m2 Critically low >=60 [facility] Comment on above: Performed By: #### ERICK Ordonez MP ####[facility] [address] [place], [place] [address]Dr. Nahed Yañez EGFR-NON AF POLISH 48 mL/min/1.73m2 Critically low >=60 [facility] Comment on above: Performed By: #### ERICK Ordonez MP ####[facility] [address] [place], [place] [address]Dr. Nahed Yañez Glucose [Mass/Vol] 191 mg/dL Critically high 74-106 [facility] Comment on above: Performed By: #### ERICK Ordonez MP ####[facility] [address] [place], [place] [address]Dr. Nahed Yañez Potassium [Moles/Vol] 3.9 mmol/L Normal 3.5-5.1 [facility] Comment on above: Performed By: #### ERICK Ordonez MP ####[facility] [address] [place], [place] [address]Dr. Nahed Yañez Sodium [Moles/Vol] 131 mmol/L Critically low 136-145 Th [facility] Comment on above: Performed By: #### ERICK Ordonez MP ####[facility] [address] [place], [place] [address]Dr. Rosemarieashley Yañez Urea nitrogen [Mass/Vol] 15.0 mg/dL Normal 7.0-18.0 [facility] Comment on above: Performed By: #### ERICK Ordonez MP ####[facility] [address] [place], [place] [address]Fz. Nahed Yañez Urea nitrogen/Creatinine [Mass ratio] 13.0 mg/mg Normal [facility] Comment on above: Performed By: #### B RENZO, CMADM ####[facility] [address] [place], [place] [address]Fo. Nahed Yañez XR CHEST 2 Von 08-21-2022 XR CHEST 2 V Normal [facility] Coding Summary.on 08-11-2022 Coding Summary. CD:[id number] W w+PGhlYWQ+AH6FFPJgK52 ctIFzfV7aT9MODIeFLrzk WPSUMMzEFgHheiRvGV1ud XNjZXJu IC8+DL6xEHZiZaaqwPBcx 2G1hNV6I23fpx1qDSujdE Q5MAXdZaStqvldy6wamJf 6IDcuNmluOyBt DONqhH99ODO2wG81Hj56r FPfwUTbv4mheGl1DdDqJP UyQRS9hGfuTNvxh6KxSUC fG28paWBwx2O1 BQJnxFtkuJIeWaKsdOF3d Y7vJZqvfyiib7psfwkmQg d2ef26gWBpg4A8wBD7X7I mukZ2EIMjdGQb BnpxeBWUkP0ffeace8pzg pxuMmCxNARyJWn8QSd1VX FkmFnvHsUhNC05CBA7YCD vldSkX3JgWFEi kCmpGqS6d7X0Fm7MQ5ETV ezlL2XQOVQGCIkcsEJ+PC 92kh31U7NlTteuZhq5WTU dQDZ6kWM8zD9t OONpTFfuq4N7vRX1H9Atp nQqyr1eg4pnZXLuAAupT6 7ilVMkn5U8OFWzfVZ8ZFS dfBtzOaCpsF82 Oyc+EOHyqJebp2YnCreht 9kzb5rndMq8KceyBIJnkv QunPohFTE6l7GfAb0uMXA jyTZ8bVF5kI3z AqNdAtP7UQowO992YwIhv CPpInqrI05wU9GokIK+PH WwLrg8DPHrwSevNT5hF6G hZGRpbmctbGVm nLtfHF4gHSArsynaQACgn H1wZRNuF2v7PvSbEwR4PC plK6YaYQNyjdijJn31gI2 cBrIaUwK9NEps N6AicxX8YAWduOZrIIpgP ZN8X76yr5X6FAFfLWHuEE K4aLE8dC9xzLsaedcivQB mdDsgdmVydGlj RYnuGIhpO329ATEwtIfqZ kNvZGluZyBEYXRlOiAgMD MvMzEvMjAyMzwvdGQ+PHR pUOT1iMwoISIz jZNgJScjNt2yoKqlsTwrH J8hMAAhsvbcCMWoqM6aSD KahBJdsWmlNU6vCNOsedm bl482ToFiWDT9 NGWfrPAfO8DflE7iVzHnM WEgVBQlM7BqgMGiHRqxQ9 79VGpoYfY0MNXevcTxG1Y sLWFsaWduOiB0 q7I2Yg4Xh4EgeradI8Hzj UDnJlPvSfpsSJn3T6QoXk wvdHI+KB45QTApPG37EFy 0QLV0hCizLHpi FXDsM3TchA7jAiQvXYHvK GRkOyc+PHRhYmxlIHdpZH RoPScxMDAlJyBzdHlsZT0 bUp7fUUYjYXDo dDlepIAnMaOoz3btRSKeN GnqXO7xtVdzR3AmqZC0HW Uet7m4Om70N15qE1EzeDU +UWZjzGW9vAI1 gV3sHdVfQdJ2GIppY058A tWrrOSeAznnv6uuq2pzcU f2EhG4AHUtsoKblRevDXF 4l5OtZb62P97z IHdpZHRoPSIxNSUiIHZhb Mthjb7tlS4yWm6+PGNvbC K4bNH0jL4aNhPhVcJ3RSs zE654EtZhmZGm Ixdcy2spr5pcpCm6MzFxY VYimjDzpKirCNH4j5FmLq 00O5BprXdrj0JmRud7zo1 6tTYds6O7nYM1 N4VcATEsrzytqJQncEtkM M6pQAWspzreVHEazO9hRL YtY1t8SpGsQaZ4FMtvR6S xotE2TWIpnKQp ATLehRTKnE1yjxevi5ugv nqoIqDpVDCnFRc7NLu4ZW JevEbdBbBsWNL1HiN4BSO 9hPPkpE5meGaw yzkqyQ2rGhj+DXL3qSZws LMUHQ2zThhjbHC+PHRkIH E2vYlcFUetDGPznB4uEEX qB2d1XfCvPvJ0 ZEeoA3OcdgF6JKSouSGoN MScdLUHeG5taazmj6hjaf ebWnJnXPUlSMw2IBk9CHY saWduOiBsZWZ0 DtN8ZAT0hRGzjL8kxPpaj fzkiT4bDux+QmlydGggRG L2SGn5V8IaPfq9HUKnhAw kIR6iqUEpCZzm Fi4wtXpatJaxKY9xSMZex uhal024YoWiz2qnVEMzcD MmYRqdIRY2L68gl2G5UNW mARUlZOT2hAF9 zO9rcWokdogllEUtlKpns hYnnVexIFdqUPvyS392AR NtyEacNtRwBTz4X4XsIby 0MVXfaTxmTH7i xYMdCAbfWq8wwRtdaVqhJ W7yQTQkcahxe075AsDrz1 snMJOvoKVeACluCUV7L30 mv9O1QBBdGAHt VUM9cMU0vG1kfLvdlbzsb GVmdDsgdmVydGljYWwtYW ufS487XDPcxXjfBiWroFf 3W3IiEkd7TIUc uOvpPW2fwDFcJFbbUn6hn YlbeXcpGQ8nDWFxnwhhj4 14SzFpu6hbYUEpkFBsQQu aCII6T98mq3C0 YPNjRMIfDZJ2tXM2sV0zs GlnbjogbGVmdDsgdmVydG gvASktGFlmF295MXTxzRk nPlBhdGllbnQg BIsjOAx6S8KfSfrddJF+P J83UBWoKW43rKOztOKsi2 fvvGy7TiMjKDCcPJX9iWc cUMbjz4FtMJFk L33ekIHad6E6BOAriVqky PAeWeQeuDF1zO3dJYxazf vop6jiyfikRctwc5enyw1 7xD66N73qDHav ZHRoPSIzMCUiIHZhbGlnb z5okS8cEv4+DPWddAP4hZ Y0iY5zMRMuJxC0GCwtY16 9InRvcCIvPjxj s7pej6dezXp2GdS2CJLvl mBmhMheZYH4h7YmBl72C8 9sIHdpZHRoPSIyMCUiIHZ xwMhcrf7hhG5e Ii8+ZFRfuRY1kET7cZ7xN rPdLxH0XPjfI790DbSmnE OoKkyrE01zH7LpxZG+PHR tDnb7BDSwhMne TZ3yjVGvBDrvLt6tCUC3V lEdXiSwQEmxB0ItJTGnzf hqehvcpWH6ATXbDBVbsR7 8Uq3tkFolFOZj wABXjD1mnrjql4vfqeadM dVbLKFmLBx8LGp4EHOzqE rpRjLjMCZ9QnV4NDP2qUY ltM8xyDwzikvb lA2kC1JyQZDtfvbnCf99u C7bYwQxYpA9FEpjZel+TU YEXP5UJCLKWYRGYGS4E6K uVke6VTJqqTnu RM2hyVGnZRcbTh0udRnpw JlePX9lHUDrgimkNRValM 4dITGrxYNccCvsQF3uSQD aacbsl180IgXk MOA3EDRxnRSoT6XxoJ7hW eJkCAZbGMKiG7YsdWBcDT fhI281BJybReV4EHVsiwM sH1KlLJDjtSro IkM5b9J6Gv5vQS2wEO0kO URpNZ01NV56xNNbm8W8uN C4M5LnHPFttphgkewnzKN 0ZLEpUSOasY88 iCScBYzfOy7ei4Y9l998R SAaITDmoA54Ld0wpYrhOW XftQPDuQ8bmkmto8nqjjg gIzAwMDAwMDt0 VHg3AYNijJxhDfEfFIY2V eP6BVI0wZKrsO8jgZxwjr zxtW7dKfi+NjEgWWVhcnM 4Q9TiXuc0NNWt fPbdKM8zcJVcGAriJu4yq VadoDhzYN1hPAIgxkoxEW GujD1wXULpjBLtzXcfJM2 nHAIqidyex862 HdFyQRM0XMRrxDTaJ2Lvx T1aIdWoMHQnDFXtK7McxN YyPOdpZ313NThhKoY4DHL svyGzP1TwPTNc hEsoKuF7b0M6Yr0VWN5bg YK0J2RrEet5TKHbcLvvPE 0ajRRoYBokYz5wjQrkrFl oYK2jSULahefn UGCwgD0hXJRirURzoVcqP U8aSPAnwyxza822MkBfOV S4FCMbfPTnC3EqsF5cCnL eZMDePTGhS7Eo mFPrPHawO031CNmnZsE0Z EAnnmIzW7RkQIPabIueNb M8v3C8Sm2MtZMxE9MlL6y 2D6XgOqdhsCV+ TF12EOPzQW00rWIsgIIvz 6lkfQw5ItXkXIIiAWN6kR nxTKkxe4SeKVTcN73kgGX cp5Q9PXTljUkr zSFnNuTaaWB8mY4fBOjcf rsoo8ppovieLwojn8yoxr 35cU85O47tMSmsQVZrFUW zMCUiIHZhbGln lk1zpT2sXm2+QWDiiKU6k ZL6qZ1rSvOiLzF3HZrlY4 26GqNqcGAcJdtvx2qia3m kyFf2JzQvDJNg ekVzbCqlIQL8m0CiUj25J 29sIHdpZHRoPSIyMCUiIH NnuMaoch8gfC1wNo2+PC9 io5hfcu30uT43 dHI+MOJxBTC6gMjdLVdrA SAkcP4mCQldIxE6CCGsXe HizQ86lFWyQTkwOl4caLi tfRkuOU1uTZSr dudar443NiRif5szYNFhc ZZpKDecXLY1D27im7S5PE UuOCThCJU6eIM4qO5vwJj nbjogbGVmdDsg dhUcrBpqMUytPFblH414H FScdFiwCqDtwSYvY2fvqi HLRU7dHulryTU+PHRkIHN 0eWxlPSdwYWRk bE3wTYTlI3s3UyJzTpE0T SplP3GedbD1HXErvJYmXQ YaxYPHdL8ocbjhw6thixw gIzAwMDAwMDt0 AYi3UMNjnVecIuZkHIE8U dI8DBK8kCOomP5ptLqqup tmcI4bTfs+RklOOjwvdGQ +RDZfLTZ3rXxa MFpoESTnnI0sCYBlS1p1N mTaCvO5DOooG2MljmX1XE VofMHnYQLdzCSKyO2xbas ow4mxdhziSnPq KDCjSKc4PWe3FVVldZtnF aOhFYH4VoR3RIK3gNQluV 8ynWafxzszgS0yWty+TVJ OOjwvdGQ+PHRk AWO5uFslTKvsVTEtzK7fH DCgH0u1BqYgSyZ1EZzsK9 GcnrA8FMJqvDVuVEGjgYC KlZ1oxjlrp7bp ywaqSyZaYDOeESb6WPb7R NEeiXmvScImQPB0LrC7TG S0kPVjaT4tsRofweijlD3 wOyc+XSN6TXX0 ZQ65RO48X8HcIwklfKGql +PHRhYmxlIHdpZHRoPS utXQRkMwCauQkdSM7aDu1 yZGVyLWNvbGxh cHNlOiBj (more content not included)... Normal [facility] Auto Diffon 08-09-2022 Basophils/100 WBC (Bld) 0.5 % Normal 0.0-2.0 [facility] Comment on above: Order Comment: Order Added by Discern Expert. Performed By: #### 2 984996, 3903669, 71338319, 1361134, 38868463, 12477472, 08332231 ####[facility] [address] [place] [address] Basophils/Leukocytes Auto (Bld) [Pure # fraction] 0.1 E9/L Normal 0.0-0.2 [facility] Comment on above: Order Comment: Order Added by Discern Expert. Performed By: #### 2 760895, 8348200, 29550672, 5325827, 41404589, 99385996, 32156261 ####[facility] [address] [place] [address] Eosinophils/100 WBC (Bld) 2.7 % Normal 0.0-8.0 [facility] Comment on above: Order Comment: Order Added by Discern Expert. Performed By: #### 2 035112, 0147727, 70247708, 5373050, 91000298, 47794962, 02846954 ####[facility] [address] [place] [address] Eosinophils/Leukocytes Auto (Bld) [Pure # fraction] 0.4 E9/L Normal 0.0-0.5 [facility] Comment on above: Order Comment: Order Added by Discern Expert. Performed By: #### 2 913723, 4450149, 76261970, 7244270, 42588486, 75203466, 74726240 ####[facility] [address] [place] [address] Lymphocytes/100 WBC (Bld) 12.8 % Low 14.0-50.0 [facility] Comment on above: Order Comment: Order Added by Discern Expert. Performed By: #### 2 340013, 0610617, 85565428, 1049092, 29949347, 75864362, 35785872 ####[place] [address] [place] [address] Lymphocytes/Leukocytes Auto (Bld) [Pure # fraction] 2.1 E9/L Normal 1.0-4.0 [facility] Comment on above: Order Comment: Order Added by Discern Expert. Performed By: #### 2 816661, 0375579, 40911048, 2194881, 68391147, 51097680, 78652085 ####[place] [address] [place] [address] Monocytes/100 WBC (Bld) 6.4 % Normal 4.0-14.0 [facility] Comment on above: Order Comment: Order Added by Discern Expert. Performed By: #### 2 280682, 4068849, 05336304, 2065168, 63461056, 14390489, 28455751 ####[place] [address] [place] [address] Monocytes/Leukocytes Auto (Bld) [Pure # fraction] 1.0 E9/L Normal 0.2-1.0 [facility] Comment on above: Order Comment: Order Added by Discern Expert. Performed By: #### 2 544554, 4946387, 52221885, 0597656, 09096623, 71559819, 38809055 ####[facility] [address] [place] [address] Neutrophils/100 WBC (Bld) 77.6 % High 36.0-75.0 [facility] Comment on above: Order Comment: Order Added by Discern Expert. Performed By: #### 2 730187, 6062305, 83426893, 3510172, 11487238, 34120111, 44932023 ####[facility] [address] [place] [address] Neutrophils/Leukocytes Auto (Bld) [Pure # fraction] 12.6 E9/L High 2.0-7.5 [facility] Comment on above: Order Comment: Order Added by Discern Expert. Performed By: #### 2 453654, 0848589, 85960159, 9712898, 58707060, 67855040, 61020799 ####[facility] [address] [place] [address] BMPon 08-09-2022 Creatinine [Mass/Vol] 1.1 mg/dL Normal 0.5-1.3 [facility] Comment on above: Performed By: #### 2 584506, 7595386, 67132454, 7531218, 92582480, 34595206, 92456328 ####[facility] [address] [place] [address] Urea nitrogen [Mass/Vol] 18 mg/dL Normal 5-21 [facility] Comment on above: Performed By: #### 2 026413, 7382707, 08264729, 7375890, 65908919, 27255365, 49760843 ####[facility] [address] [place] [address] Urea nitrogen/Creatinine [Mass ratio] 16 No Units Normal 10-20 [facility] Comment on above: Performed By: #### 2 126842, 6343528, 76973735, 2889902, 13456681, 92802407, 66410033 ####[facility] [address] [facility] [place] [address] Anion gap [Moles/Vol] 13 mmol/L Normal 6-[address] [facility] Comment on above: Performed By: #### 2 878540, 9303455, 66726128, 5163381, 65712783, 30830905, 13932967 ####[facility] [address] [place] [address] Calcium [Mass/Vol] 8.8 mg/dL Low 8.9-11.1 [facility] Comment on above: Performed By: #### 2 650385, 7835250, 11929886, 1116820, 50199737, 32077790, 15935665 ####[facility] [address] [place] [address] Chloride [Moles/Vol] 101 mmol/L Normal 101-111 [facility] Comment on above: Performed By: #### 2 773781, 9157143, 78355993, 2587814, 59521041, 91505713, 94478958 ####[facility] [address] [place] [address] CO2 [Moles/Vol] 27 mmol/L Normal 21-31 [facility] Comment on above: Performed By: #### 2 022950, 3683610, 24827013, 2603292, 25982356, 90153958, 19701142 ####[facility] [address] [place] [address] Glucose [Mass/Vol] 121 mg/dL Normal 55-199 [facility] Comment on above: Result Comment: If t his glucose result represents a fasting glucose, interpretation should refer to the following reference range: 55-99 mg/dL Performed By: #### 2 773568, 4765763, 87234021, 1445141, 99862116, 59782999, 91610382 ####[facility] [address] [place] [address] Potassium [Moles/Vol] 3.9 mmol/L Normal 3.5-5.3 [facility] Comment on above: Performed By: #### 2 355215, 5604222, 63852469, 7335409, 86470689, 10918333, 73678568 ####[facility] [address] [place] [address] Sodium [Moles/Vol] 137 mmol/L Normal 135-145 [facility] Comment on above: Performed By: #### 2 927229, 6404700, 57876450, 1255926, 41270433, 55061950, 47579581 ####[facility] [address] [place] [address] BNPon 08-09-2022 Int Ctr BNP Pass Normal [facility] Comment on above: Performed By: #### 2 671570, 9829645, 36812857, 4204378, 49654573, 81358770, 98162254 ####[facility] [address] [place] [address] Natriuretic peptide B (Bld) [Mass/Vol] 19 pg/mL Normal 5-80 [facility] Comment on above: Performed By: #### 2 482561, 6290505, 95033248, 2342552, 62957732, 73314343, 03894931 ####[facility] [address] [place] [address] Blood Gas Art, with Lytes, G alex, [place] 08-09-2022 a/A Ratio Art 75.90 % Normal >=0.80 [facility] Comment on above: Performed By: #### 4 [id number] ####[facility] [address] [place] [address] AaDO2 Art 21.9 mmHg High 5.0-15.0 [facility] Comment on above: Performed By: #### 4 13423199 ####[facility] [address] [place] [address] Allens Test Not Applicable Normal [facility] Comment on above: Performed By: #### 4 [id number] ####[facility] [address] [facility] [place] [address] Base Excess Arterial 3.1 mmol/L Normal >=2.8 [facility] Comment on above: Performed By: #### 4 [id number] ####[facility] [address] [facility] [place] [address] cCa2+ Art 4.86 mg/dL Normal 4.40-5.30 [facility] Comment on above: Performed By: #### 4 14654390 ####[facility] [address] [facility] [place] [address] cCl- Art 105.0 mmol/L Normal 101.0-111.0 [facility] Comment on above: Performed By: #### 4 [id number] ####[place] [facility] [place] [address] cGlu Art 117 mg/dL High 55-99 [facility] Comment on above: Performed By: #### 4 [id number] ####[place] [facility] [place] [address] cK+ Art 4.0 mmol/L Normal 3.5-5.3 [facility] Comment on above: Performed By: #### 4 [id number] ####[facility] [address] [facility] [place] [address] cLac Art 1.4 mmol/L Normal .5-2.2 [facility] Comment on above: Performed By: #### 4 79984110 ####[facility] [address] [facility] [place] [address] debit agent+ Art 142.0 mmol/L Normal 135.0-145.0 [facility] Comment on above: Performed By: #### 4 66557950 ####[facility] [address] [facility] [place] [address] Drawn by [employer] Invalid Interpretation Code [facility] Comment on above: Performed By: #### 4 [id number] ####[facility] [address] [facility] [place] [address] FCOHb Art 1.0 % Low 1.5-4.9 [facility] Comment on above: Result Comment: Refe rence range Nonsmoker <1.5% Smoker <5.0% Heavy Smoker <9.0% Performed By: #### 4 [id number] ####[facility] [address] [facility] [place] [address] FIO2 BG 21 Invalid Interpretation Code [facility] Comment on above: Performed By: #### 4 [id number] ####[facility] [address] [place] [address] FMetHb Art 0.5 % Normal 0.0-1.9 [facility] Comment on above: Performed By: #### 4 [id number] ####[facility] [address] [facility] [place] [address] FO2Hb Art 92.6 % Normal 92.0-100.0 [facility] Comment on above: Performed By: #### 4 [id number] ####[facility] [address] [place] [address] HCO3 (Bld) [Moles/Vol] 27.1 mmol/L High 22.0-26.0 [facility] Comment on above: Performed By: #### 4 [id number] ####[facility] [address] [facility] [place] [address] Hemoglobin (Bld) [Mass/Vol] 12.5 g/dL Normal 12.0-16.0 [facility] Comment on above: Performed By: #### 4 [id number] ####[facility] [address] [facility] [place] [address] Oxygen saturation in Blood 94.1 % Low 95.0-100.0 [facility] Comment on above: Performed By: #### 4 [id number] ####[facility] [address] [place] [address] P CO2 Arterial 48.9 mmHg High 35.0-45.0 [facility] Comment on above: Performed By: #### 4 [id number] ####[facility] [address] [place] [address] P O2 Arterial 68.8 mmHg Low 80.0-100.0 [facility] Comment on above: Performed By: #### 4 [id number] ####[facility] [address] [place] [address] pH Arterial 7.383 Normal 7.350-7.450 [facility] Comment on above: Performed By: #### 4 [id number] ####[place] [id number] Sample Site R Brachial Normal [facility] Comment on above: Performed By: #### 4 [id number] ####[place] [id number] Sample Type Arterial Draw Normal [facility] Comment on above: Performed By: #### 4 [id number] ####[address] [address] CBC w/ Auto Diffon 3 Erythrocyte distribution width (RBC) [Ratio] 15.4 % High 10.9-14.2 [facility] Comment on above: Performed By: #### 2 661429, 9251344, 68825492, 6924618, 59360997, 91017424, 35319804 ####[address] [address] Hematocrit (Bld) [Volume fraction] 36.9 % Normal 34.0-46.0 [facility] Comment on above: Performed By: #### 2 686197, 4457328, 40988391, 6841106, 22421897, 70494232, 25027799 ####[facility] [address] [place] [address] Hemoglobin (Bld) [Mass/Vol] 11.8 g/dL Low 12.0-16.0 [facility] Comment on above: Performed By: #### 2 739148, 8693739, 90126156, 3647023, 20625452, 63496113, 45679124 ####[facility] [address] [place] [address] MCH (RBC) [Entitic mass] 28.0 pg Normal 27.0-34.0 [facility] Comment on above: Performed By: #### 2 782066, 1143106, 22500609, 4170148, 45697257, 46084293, 26749344 ####[facility] [address] [place] [id number] MCHC (RBC) [Mass/Vol] 32.0 g/dL Normal 31.4-36.0 [facility] Comment on above: Performed By: #### 2 441095, 2355468, 66879628, 2983587, 42587456, 07563293, 91427434 ####[address] [address] MCV (RBC) [Entitic vol] 87.6 fL Normal 80.0-100.0 [facility] Comment on above: Performed By: #### 2 612580, 1253563, 06236405, 0336680, 37181638, 97995040, 83678827 ####[address] [address] Platelet mean volume (Bld) [Entitic vol] 8.4 fL Normal 6.4-10.8 [facility] Comment on above: Performed By: #### 2 402898, 5842444, 95862296, 0961180, 34419366, 55019937, 35581565 ####[address] [address] Platelets (Bld) [#/Vol] 238.0 E9/L Normal 150.0-500.0 [facility] Comment on above: Performed By: #### 2 046975, 8527853, 83959545, 4648440, 49019932, 69231750, 14795684 ####[address] [address] RBC (Bld) [#/Vol] 4.2 E12/L Low 4.3-5.9 [facility] Comment on above: Performed By: #### 2 294177, 7843136, 49662062, 9533569, 46054639, 00890674, 02471150 ####[facility] [address] [place] [address] WBC corrected for nucl RBC Auto (Bld) [#/Vol] 16.3 E9/L High 4.0-11.0 [facility] Comment on above: Result Comment: Slid e reviewed by LW. Performed By: #### 2 080986, 6568099, 04764334, 1820836, 98041760, 87480433, 55542589 ####[facility] [address] [place] [address] CHEMISTRYOrdered By: SYSTEM SYSTEM on 08-09-2022 Troponin I.cardiac [Mass/Vol] 7.00 pg/mL Low 10.10 - 27.10 pg/mL [facility] Remisol Anion gap [Moles/Vol] 13 mmol/L Normal [...] 50 mL/min/1.73 m2 Low >=59mL/min/1 .73 m2 [facility] Chem S Glucose [Mass/Vol] 121 mg/dL Normal 55 - 199 mg/dL FT Remisol Potassium [Moles/Vol] 3.9 mmol/L Normal 3.5 - 5.3 mmol/L [facility] Remisol Sodium [Moles/Vol] 137 mmol/L Normal 135 - 145 mmol/L FT Remisol Troponin I.cardiac [Mass/Vol] 4.00 pg/mL Low 10.10 - 27.10 pg/mL FT Remisol Urea nitrogen [Mass/Vol] 18 mg/dL Normal 5 - 21 mg/dL FT Remisol Urea nitrogen/Creatinine [Mass ratio] 16 mg/mg Normal 10 - 20 [facility] Remisol CHEMISTRYOrdered By: Evelyn montenegroer on 08-09-2022 Natriuretic peptide B (Bld) [Mass/Vol] 19 pg/mL Normal 5 - 80 pg/mL [facility] HemeManSS COAGULATIONOrdered By: Sagar Castorena on 08-09-2022 aPTT Coag (PPP) [Time] 31.4 s Normal 25.1 - 36.5 second(s) [facility] Auto Coag INR Coag (PPP) [Relative time] 0.9 {INR} Invalid Interpretation Code [facility] Auto Coag PT Coag (PPP) [Time] 10.3 s Normal 9.4 - 1 2.5 second(s) [facility] Auto Coag CTA Cheston 08-09-2022 CTA Chest [...] 370 Contrast amount in ml's: 73 [facility] Discharge Instructionson Discharge Instructions [id number]# 1.00CD:127 [facility] ED Clinical Summaryon 2022 ED Clinical Summary [place] [address] ED Clinical Summary Person Information Name: VIVIAN VANN Vika/[facility] Age: 62 Years : 1960 Sex: Female Language: Greenlandic PCP: Екатерина Robert MD Marital Status: Visit [...] 08/09/2022 18:01:49 08/09/2022 18:01:49 08/09/2022 18:01:49 ADDRESS: [address] [id number] PHYS DOC NOTES: MEDICAL INFORMATION: Prescriptions Given: [facility], [address] [place], [place] [id number], [phone] brompheniramine/dextr omethorphan/PSE (Bromfed DM oral syrup) 5 [...] Follow up: With: Address: When: Екатерина Robert [address] [place] [address], [facility] [place] [id number] Business (1) In 3 days 08/12/2022 Comments: Call the office of your primary care doctor to arrange for follow-up within the above-stated timeframe. Follow-up with your primary care doctor about this ED visit. You should review your labs, imaging, and diagnoses from this ED visit with your primary care physician. If y (more content not included)... [facility] ED Note-Physicianon 08-10-19 ED Note-Physician Basic Information [...] that she has had 2 admissions to [facility] over the last few weeks for pneumonia/COPD exacerbation. Patient is currently on amoxicillin at home, feels that her symptoms are not improving but are in fact worsening. Patient endorses fevers and chills, myalgias. Patient reports her symptoms had not improved much on her last discharge from [facility], and worsening since that time. Patient is [...] and Complexity of Problems Differential Diagnosis: [] [facility] Data External documents reviewed: [] My [...] for co (more content not included)... [facility] Comment on above: Result Comment: Elec tronically [...] these instructions at home: Medicines ? Take yvro-vcw-kpvkrso and prescription medicines (inhaled or pills) only [...] you e (more content not included)... [facility] ED Patient Summaryon 023 ED Patient Summary [address] [address] Patient Discharge Instructions Person Information Name: VIVIAN VANN Age: 62 Years Arrival Date: 08/09/2022 13:09:07 Discharge Diagnosis: COPD exacerbation Primary Care Physician: Екатерина Robert MD Provider Information Primary Provider: Arsenio Martin DO [employer]:Clinton Lucero PA-C The exam and treatment you received in the Emergency Department were for an urgent problem and are not intended as complete care. It is important that you follow up with a doctor, nurse practitioner, or physician?s placement assistant for ongoing care. If your symptoms [...] Follow-up Instructions: With: Address: When: Екатерина Robert [address] [place] [address], [facility] [place] [address] Business (1) In 3 days [...] opioids can be used to help relieve lnllyrze-dh-totsfh pain and are often prescribed following a [...] Safely disp (more content not included)... [facility] EMS Documentationon 08-10-19 23 EMS Documentation Please click on link to see report [id number] CiX5+prnDQolQUJDcGRmI NQgNuE0ECigYvZsMN2khk 6DXZyMQ3VlZIZyTGp2Pl7 I EBsmTUw2AJUuKV5MV0tiY Kf9WyF2Jh3DkJ6qJLHzay PpVMIDF85lEfuiExMhVSg yYVGmHgg1VhDC Bl8qHVSwSRUgGBVxVBEyU CAgICAgICAgICAgICAgIC AgICAgICAgICAgICAgICA gICAgICAgICAg ICAgICAgICAgICAgICAgI CAgICAgDQplbmRvYmoNCg 8NhHMbMf1YHtPsCjYFQbI wMDAwMDAwMzIg APEkIXSghc6ATJKeNFNfJ MH9IIKyRQJxYPUqNQyxNQ HaMTMmIAh9YRDrTIUaPH0 NCjAwMDAwMDE3 DWZcERAbUYZhen8SRXYrL DAwMTkzNCAwMDAwMCBuDQ ezNHCzPBLaEUd2HDLxADU mSI0JRxCjRZYx SFJuDbXiUMYeNVMgvc1QA DAwMDAwMjMxNSAwMDAwMC PfGKzfAPJuRQPsQvg5SMJ kFFUgMS4JSiUi NBPyYTW8SLmmGLFzWJKif x2AWLBjUHGuMvodZAWyUA AwMCBuDQowMDAwMDAzMDY nIHOsODPvCD6W LiMxMQWcXOA9XGMeBTDuR UBgza2AOZEwGRHbOxLyRu AwMDAwMCBuDQowMDAwMDA ySSV2FOQyMDKd PA1RWaVmRZEdGUYgYGXmC BCsPLGsdj3CNTXhIQTmAB H2MqSsKPQiKNJxLYfvATR xFUC9EsB5YBXl HHWtZX3MJlHzAHOxFZU1C TBeCWUiLEEyan5ANNCtJF QwDOU5UFMdPORmVVTlRJe jSZIiPWZ1GBE8 ACTlILYoLU5OQwIyYABdV QZ5TMbpVPTiMOGfwn4IVX AwMDAwOTMwMCAwMDAwMCB uDQowMDAwMDQ5 PQqeABZpPLCaZZ1KLaYiE TZlYVM9WNRzYWVyZRXkxa 7PsHBmbAhwuq1EFMxNK9j EWOh9UPQCBTL6 BgU8M9V9UdC5UPzTQLkjK GR6TWNBWlS1VIX+CjxGRj KeL3AIWFCYGWUjZmhyHPH SSJX4QFcsQGx4 FWOlNQ9vKn4UrdM0YFH4Z MjjBGqaAv1vtYAlXyNiDF HDA7HqftWaZSzFF6NjyUZ nMPRmE8BXVJX9 Dc76RljusZsXGTH7BJIKE VxaJM2HRdzRGwGsAUnxZw 66L4HQm4P7OqKoJ1IToDe MvqSIEFbdL2gC cVF9e1fcoEfYtAKInVekI GdJcndPalFSQUlqUHNXaE 08znpGM1IcKOm6I4KIHr8 FRDpgFjZjuM2R xCrfNEY6yQ8eHRUVLVbFO hpkQY7WSFNMYCl8ACy+Pi AgICAgICAgICAgICAgICA gICAgICAgICAg ICAgICAgICAgICAgICAgI CAgICAgICAgICAgICAgIC AgICAgICAgICAgICAgICA gICAgICAgICAg ICAgICAgICAgICAgICAgI CAgICAgICAgICAgICAgIC AgICAgICAgICAgICAgICA gICAgICAgICAg ICAgICAgICAgICAgICAgI CAgICAgICAgICAgICAgIC AgICAgICAgICAgICAgICA gICAgICAgICAg ICAgICAgICAgICAgICAgI CAgICAgICAgICAgICAgIC AgICAgICAgICAgICAgICA gICAgICAgICAg ICAgICAgICAgICAgICAgI CAgICAgICAgICAgICAgIC AgICAgICAgICAgICAgICA gICAgICAgICAg ICAgICAgICAgICAgICAgI CAgICAgICAgICAgICAgIC AgICAgICAgICAgICAgICA gICAgICAgICAg ICAgICAgICAgICAgICAgI CAgICAgICAgICAgICAgIC AgICAgICAgICAgICAgICA gICAgICAgICAg VE6Xv3WeaaW0zdWqCBltC WjmEVLJFu5ORVvzTiNzGL 1vjo9JLTfKS57pqSDnFYE hIDIxIDAgUgov Z8YjtdKvwXmoihJqQlLqS INVCl4ZoVOCVPomH7T6cK unPMQbWYlaPBORWg0MJDv uRK1yHTXkLUDt Oa4xFEhgOQIwTPVtAqCdQ RTKRu1IkHJkRX4UECFugU 9nCj4+DQplbmRvYmoNCg0 KMjQgMCBvYmoN Tsm0Td7UjTa4PQGxH2JqT FTmYKEql8PsNn9VNI8wnP wyJKE2Pr2UHOe9Et0+DQp ohSGpZX8SKfko Z8QuVMXjRAOtCLRqOZlEc XCgAIUpQLYQVIyLgXHaDQ jzpTYDMsAQZzMCEmJQzMC hEuE9BIfZV8M1 GOiVZxDpt1L1SSwSOQLSN bWxWMxRoYuS9cMQeJgBfl M06HH3vXuUTSNuQZWT0PD niKkD0XfWZt4N 0A7HXH1zq8AnFSIrCFwon iLhZciZYw6HVwBwSBVfJf cIWht0Gy8Pt643AH48eyJ bNDIgMCBSXQov QPSjiJOAg4oyPzIuTET1G UOvXybwGUyyTBTpTS27VI ZmVLIyAhouDvBiw8HqG3B hXSv2Gh6OT6Iv ZFM8TSt2Pu4GLKLyQtKdO kLsDAXVCe0EFv8EN0I7sI OcA5IoZ4MCAn4TUgSpYJ9 vve1TGBzpTvEw RK5uty0KCSgKP9RFk2mvJ tTrSEW0ZGKtWhfgDRetRs igmUUmMU3IrMP7PPWsI64 rHMxfXWCzP2Jk PNr8Rq6USQNhmSIwPNSlJ WuWB1aNZxesX4GyBUlIG8 zeHoT6QHTnIWIvXez+Pgo +FguhG8FeySee KUHuIl3ljMotXOteKTRuM R2zoiVcuTl+Na8Bc6DsOB BdOXt2gCUP3OLb9DPhNIA sYFS5ZMGfmjSU KYdt6XpFvHVcYmHpmUAxF 1ilEZOo67uETDQiUjsSs6 ocVuFt5IqEZZ+LO7OJowE cTtYdxb1KXQet hbAosUDyTJ7SFkYvOA9tj p1LCAfyGnVeXZ4zlg7HIZ eZG9UXJT2Tu9QnFVzZF6Y HROQEK8kRQBGH H8eZRWPCT4oJGYAAO71QG FUOA0PFJLSraGGIB7EeCE MVIf0QVqPvQS0eiq3BWPt lLTEvBS4kqf0N HAvRH3KEAE5Nf3ElJZuES 2HmBXBLRi2JEeNiCH5yrx 2HHAldGPSiYK2qly9APZg BF3BBZT6Hi7Uc VFgXV0JJFOECB7fURBZPJ 7sICXCUR1tIHVLLB84NAR CJK6XNWPAdfWWBM1SfNAX IFa4CMdSkKT4o ls5HWTngJUXeEJ1kyn4CV WkBM9Wjv1FAs511WC8YUv hYOI4vM209ihxglp9tz0H TLUJvbGRNVAov ITReW6LzXSFsbWAixrZsD WotVIZcNCKdWt8CryMiEU luZyAvSWRlbnRpdHktSAo cS5ZcfIqyFUFf BBpiLDNQJ6PpPH7qJ90lV UFyAhPiFRYYK4X1cEWxL0 WlhxAADx2EHmClVT5jdv7 OERvlYKXtMR5j rz9WSMkIS0Mqv4HWe811Z T3SPgePKR4aY723egrxgu 8we9AWKBOjmYSPRQfqJ4y ML2jxjPYuYX5j rrA9RGdhY3VoWOIznnlgE BdwYR91bBT1NRbwOcOedN U2xzscRHOxs0JxCMjkO0X wcGxlbWVudCAw Cj4+Rv2MLYMSr2rXCP2ch IWhKQFyzfNxeIgRA1ZXLO DDO8CsofICDJQrehtbbH8 yIDMyIDAgUgov X2BbbKpzBLJmZ3nDRw3gx MM2aSKtFv1PhSDiMV1Kt5 38Vc6SQWvpPDefDJVrRE0 fAHg6Gt2GSp9B FlEgUV6kpr5DYRpmZoAjX F8fen4UZTkNV5RxE1GfnT N4ApFxOWW6IMBNF6YieEb hcBkifST2TUUt Flk4VOqPZ0Lad2HtsxEzS yGnKrJ0Eml1Pt8YcWFyeq OiLTnnLx3yjRDZk9qmTy2 nFXRlFGy0PVXm OMfoJJ36QSyePdX4YUVaO lUiCXTrNNGfBR5vHCU6GJ 5VA7XlyiCUoHxgMnP2PKN sDSFNA9FwzcJQ XK1cMZ7WKlsLMP1uU742t wlucp7iv5JBDCTvfGIPLG doZPGkmRajVC2quUZmNPc vO1LqhXRbRyMp MZzuYNoRK2E0lDSdF9Vcq lJHTSCsbsmjgU0mKx5+DQ evazNaOleOQi9XMnNrISD hLagCUpd5Nn0F sRi6DPGuI4BvCYXrXNQjs 9SlOo0AMT9njHrlTqA6Ae 4+UYzafWTxNG0BPuleLYK JbnSsJCv5L6hC CvJTATvLRIwdcaIeA7RyN 5p6hXpLtCvy8K1geyPCsc xvM1jhk59L4E6+aHmg0HO FqjQLa6C8d4z2 uJU0SVtsQYs9VcleUk5j1 BxLoridpwBDY/uRlSXnyV iIAxOChADJ0yedHWWpYZj oz2g2vDmD63mp vzCADVywquIa+gn88wj7q qZksFwh4Zf7IH9EuTCrn8 kBPcNEoyBeurs9Gclpl4P IUVsLb0StBGSt /1GvFp979lT8oC3vghDXM Nm2yZAUSmUSeTxa1f9hUi AzZP8QbX9bWnGK3a4PsoH Xj8v16fVOQ4Hi RvIayawgcodHIYmkChnJi xckc/MpFA8gt7JmVRB+y+ eSqLWcEbnx1RpuIj3UpoI S44fMFAkE55/A oE2GZw4bgbskZt0QEN3bn 3RyZWFtDQplbmRvYmoNCg 0NSkZnIFFkGbmDGco0Bj8 MCNCqWj9stUQy NzoZRPkKG0WyqFHwWVRVI HiFQ30AJt2SPUTmFA0sDT 02Ls7xkUAdNpO0AJQkTq1 LK9VmE52ctB6x GD0ZJUPczBh9eN2UXc7Zl AF6yRSeUV1ZkONgBGjmKB 5Hgvhwr8FxBNT2 (more content not included)... [facility] FT Blood GasesOrdered By: Ra raciel Marx [...] - 2.2 mmol/L FT Resp Auto SS debit agent+ Art 142.0 mmol/L Normal 135.0 - 145.0 mmol/L [facility] Resp Auto SS Drawn by RLG Invalid Interpretation Code [facility] Resp Auto SS FCOHb Art 1.0 % Low 1.5 - 4.9 % [facility] Resp Auto SS FIO2 BG 21 Invalid Interpretation Code [facility] Resp Auto SS FMetHb Art 0.5 % Normal 0.0 - 1.9 % FT Resp Auto SS FO2Hb Art 92.6 % Normal 92.0 - 100.0 % [facility] Resp Auto SS HCO3 (Bld) [Moles/Vol] 27.1 mmol/L High 22.0 - 26.0 mmol/L FT Resp Auto SS Hemoglobin (Bld) [Mass/Vol] 12.5 g/dL Normal 12.0 - 16.0 gm/dL [facility] Resp Auto SS P CO2 Arterial 48.9 mm[Hg] High 35.0 - 45.0 mmHg FT Resp Auto SS P O2 Arterial 68.8 mm[Hg] Low 80.0 - 100.0 mmHg [facility] Resp Auto SS pH Arterial 7.383 Normal 7.350 - 7.450 [facility] Resp Auto SS Sample Site R Brachial (08/09/22 2:03 PM) Normal [facility] Resp Auto SS Sample Type Arterial Draw (08/09/22 2:03 PM) Normal [facility] Resp Auto SS HEMATOLOGYOrdered By: SYSTEM SYSTEM [...] 32.0 g/dL Normal 31.4 - 36.0 gm/dL [facility] HemeAutoSS MCV (RBC) [Entitic vol] 87.6 fL [...] Coag (PPP) [Time] 31.4 second(s) Normal 25.1-36.5 [facility] Comment on above: Result Comment: Para meter [...] the same coagulation reagent and instrumentation as [facility]. Currently there are no coagulation studies available worldwide for children to 14 days, and no normal ranges. Heparin therapeutic range (represented by Anti-Factor Xa activity of 0.2 - 0.4 U/mL) corresponds to PTT of 56.6 - 109.0 sec. Performed By: #### 2 [id number], 0263413, 72293273, 2957358, 79833090, 80816000, [id number] ####[facility] [address] [place] [address] INR Coag (PPP) [Relative time] 0.9 {INR} Invalid Interpretation Code [facility] Comment on above: Result Comment: INR results are specifically intended to assess patients stabilized on long-term Anticoagulation therapy suggested INR?s ?Less Intensive Anticoagulation? 2.0 ? 3.0 Conventional Range 3.0 ? 4.5 Performed By: #### 2 [id number], 2998091, 44679846, 2670421, 68463856, 10599573, 69591847 ####[facility] [address] [place] [address] PT Coag (PPP) [Time] 10.3 second(s) Normal 9.4-12.5 [facility] Comment on above: Result Comment: 15 d [...] the same coagulation reagent and instrumentation as [facility]. Currently there are no coagulation studies available worldwide for children to 14 days, and no normal ranges. Performed By: #### 2 563390, 3398225, 12315784, 8811717, 02278720, 25966224, 97898459 ####[facility] [address] [place] [address] Pre-Arrival Noteon 3 Pre-Arrival Note Pre-Arrival Summary Name: , Current Date: 08/09/2022 13:09:29 EDT Gender: Female Date of : Age: 62 Pre-Arrival Type: EMS ETA: 08/09/2022 13:33:00 EDT Primary Care Physician: Presenting Problem: sob Pre-Arrival User: John Martin Referring Source: Location: DC Completion Date/Time: 08/09/2022 13:03:[address] [facility] Emergency Department Pre-Hospital Report Form Vital Signs: Pre-Hospital Report: Treatment in Route: Response to Treatment: Misc. Issues: [facility] Troponin 0 Hr.on 08-09-2022 Troponin I.cardiac [Mass/Vol] 4.00 pg/mL Low 10.10-27.10 [facility] Comment on above: Result Comment: The 95% CI (Confidence Interval) PPV (Positive Predictive Value) for myocardial infarction in females is 38 pg/mL, in males 51 pg/mL. The results should be used in conjunction with clinical conditions of myocardial infarction. (Access High Sensitivity Troponin I Instructions For Use, [employer], December 2017) Performed By: #### 2 [id number], 7496244, 83958555, 5127172, 62770599, 22666046, [id number] ####[facility] [address] [place] [address] Troponin 3 Hr.on 08-09-2022 Troponin I.cardiac [Mass/Vol] 7.00 pg/mL Low 10.10-27.10 [facility] Comment on above: Result Comment: The 95% CI (Confidence Interval) PPV (Positive Predictive Value) for myocardial infarction in females is 38 pg/mL, in males 51 pg/mL. The results should be used in conjunction with clinical conditions of myocardial infarction. (Access High Sensitivity Troponin I Instructions For Use, [employer], December 2017) Performed By: #### 1 [id number] ####[place] [address] [place] [address] XR Chest Single Viewon 08-09 XR Chest [...] mGy = na DAP = na [facility] eGFRon 08-09-2022 GFR/1.73 sq M.predicted among blacks MDRD (S/P/Bld) [Vol rate/Area] mL/min/{1.73_m2} Normal >=59 [facility] Comment on above: Order Comment: Order added by Discern Expert. Result Comment: eGFR is race adjusted. AA=. Performed By: #### 2 435149, 7333417, 36243743, 9630905, 86897437, 89392556, 15264099 ####[facility] [address] [place] [address] GFR/1.73 sq M.predicted among non-blacks MDRD (S/P/Bld) [Vol rate/Area] 50 mL/min/1.73 m2 Low >=59 [facility] Comment on above: Order Comment: Order added by Discern Expert. Result Comment: Acupressurist valeria kidney disease could be indicated at eGFR's of less than 60 mL/min/1.73m2. Kidney failure is indicated at less than 15 mL/min/1.73m2. Performed By: #### 2 336277, 1529289, 11731275, 7501018, 83804891, 74731951, 57155022 ####[facility] [address] [place] [address] CBC W MANUAL DIFFon 08-02-19 23 ATYPICAL LYMPH # Normal [facility] Comment on above: Performed By: #### C ROSARIO ####[facility] [address] [place] [id number]. Nahed Yañez ATYPICAL LYMPH % Normal [facility] Comment on above: Performed By: #### C ROSARIO ####[facility] [address] [place] [id number]. Nahed Yañez BAND # 0.9 103/ul Critically high 0.0-0.3 [facility] Comment on above: Performed By: #### C ROSARIO ####[facility] [address] [place] [address]Dr. Yilan Yañez BAND % 5 % Normal 0-5 [facility] Comment on above: Performed By: #### C ROSARIO ####[facility] [address] [place] [address]Dr. Nahed Yañez BASOM # 0.00 103/ul Normal 0.00-0.10 [facility] Comment on above: Performed By: #### C ROSARIO ####[facility] [address] [place] [address]Dr. Nahed Yañez BASOM % 0.0 % Critically low 0.2-2.0 [facility] Comment on above: Performed By: #### C ROSARIO ####[facility] [address] [place], [place] [address]Dr. Nahed Yañez BLAST # Normal [facility] Comment on above: Performed By: #### C ROSARIO ####[facility] [address] [place] [address]Dr. Nahed Yañez BLAST % Normal [facility] Comment on above: Performed By: #### C ROSARIO ####[facility] [address] [place] [address]Dr. Nahed Yañez CORRECTED WBC Normal 4.0-11.0 [facility] Comment on above: Performed By: #### C ROSARIO ####[facility] [address] [place] [address]Dr. Nahed Yañez EOS # 0.00 103/ul Normal 0.00-0.70 [facility] Comment on above: Performed By: #### C ROSARIO ####[facility] [address] [place], [place] [address]Ck. Nahed Yañez EOS% 0.0 % Critically low 0.9-7.0 [facility] Comment on above: Performed By: #### C ROSARIO ####[facility] [address] [place], [place] [address]Yn. Nahed Yañez HCT 39.5 % Normal 36.0-48.0 [facility] Comment on above: Performed By: #### C ROSARIO ####[facility] [address] [place], [place] [address]Bz. Nahed Yañez HGB 13.0 g/dl Normal 12.0-16.0 [facility] Comment on above: Performed By: #### C ROSARIO ####[facility] [address] [place] [id number]. Nahed Yañez LYMPHM # 1.72 103/ul Normal 1.20-3.80 [facility] Comment on above: Performed By: #### Isabell PONCE ####[facility] [address] [place], [place] [address]Zl. Nahed Yañez LYMPHM% 10.0 % Critically low 20.5-60.0 [facility] Comment on above: Performed By: #### Isabell PONCE ####[facility] [address] [place], [place] [address]Uo. Nahed Yañez MCH 28.7 pg Normal 26.7-34.0 [facility] Comment on above: Performed By: #### Isabell PONCE ####[facility] [address] [place], [place] [address]Ci. Nahed Yañez MCHC 32.9 g/dl Normal 29.9-35.2 [facility] Comment on above: Performed By: #### Isabell PONCE ####[facility] [address] [place], [place] [address]Pe. Nahed Yañez MCV 87.2 fL Normal 81.0-99.0 [facility] Comment on above: Performed By: #### Isabell PONCE ####[facility] [address] [place] [id number]. Nahed Yañez METAMYELOCYTE # Normal [facility] Comment on above: Performed By: #### C ROSARIO ####[facility] [address] [place] [id number]. Nahed Yañez METAMYELOCYTE % Normal [facility] Comment on above: Performed By: #### C ROSARIO ####[facility] [address] [place] [id number]. Nahed Yañez MONOM# 0.86 103/ul Critically high 0.30-0.80 [facility] Comment on above: Performed By: #### C ROSARIO ####[facility] [address] [place] [id number]. Nahed Yañez MONOM% 5.0 % Normal 1.7-12.0 [facility] Comment on above: Performed By: #### C ROSARIO ####[facility] [address] [place] [address]Dr. Nahed Yañez MPV 9.8 fL Normal 9.5-13.5 [facility] Comment on above: Performed By: #### C ROSARIO ####[facility] [address] [place] [id number]. Nahed Yañez MYELOCYTE # Normal [facility] Comment on above: Performed By: #### C ROSARIO ####[facility] [address] [place] [id number]. Nahed Yañez MYELOCYTE % Normal [facility] Comment on above: Performed By: #### C ROSARIO ####[facility] [address] [place] [id number]. Nahed Yañez NRBC Normal [facility] Comment on above: Performed By: #### C ROSARIO ####[facility] [address] [place] [id number]. Nahed Yañez PLT 388 103/ul Normal 150-450 [facility] Comment on above: Performed By: #### C ROSARIO ####[facility] [address] [place] [id number]. Rosemarieashley Otilio RBC 4.53 106/ul Normal 4.20-5.40 [facility] Comment on above: Performed By: #### C GILBERTOMAN ####[facility] [address] [place] [id number]. Nahed Yañez RDW 14.4 % Normal 11.0-15.0 [facility] Comment on above: Performed By: #### C ROSARIO ####[facility] [address] [place], [place] [address]Bl. Nahed Yañez SEG # 13.76 103/ul Critically high 1.40-6.50 [facility] Comment on above: Performed By: #### C ROSARIO ####[facility] [address] [place] [id number]. Nahed Yañez SEG % 80.0 % Critically high 43.0-75.0 [facility] Comment on above: Performed By: #### C ROSARIO ####[facility] [address] [place] [id number]. Nahed Yañez WBC 17.2 103/ul Critically high 4.0-11.0 [facility] Comment on above: Performed By: #### C ROSARIO ####[facility] [address] [place] [id number]. Nahed Yañez MAGNESIUMon 08-01-2022 Magnesium [Mass/Vol] 2.0 mg/dL Normal 1.8-2.4 [facility] Comment on above: Performed By: #### MG COLE, CMP ####[facility] [address] [place] [id number]. Nahed Yañez POINT OF CARE GLUCOSEon 07-13 Glucose [Mass/Vol] 267 mg/dL Critically high 74-106 [facility] Comment on above: Performed By: #### P OCGLUC ####[facility] [address] [place] [id number]. Nahed Yañez PROF 14(COMP METB)on 023 Albumin [Mass/Vol] 3.4 g/dL Normal 3.4-5.0 [facility] Comment on above: Performed By: #### Nydia ELLER MG, CMP ####[facility] [address] [place] [address]Dr. Nahed Yañez Albumin/Globulin [Mass ratio] 0.9 {ratio} Normal [facility] Comment on above: Performed By: #### MG COLE, CMP ####[facility] [address] [place] [address]Dr. Nahed Yañez ALP [Catalytic activity/Vol] 100 U/L Normal 46-116 [facility] Comment on above: Performed By: #### MG COLE, CMP ####[facility] [address] [place] [address]Dr. Nahed Yañez ALT [Catalytic activity/Vol] 19 U/L Normal 14-59 [facility] Comment on above: Performed By: #### MG COLE, CMP ####[facility] [address] [place] [address]Dr. Nahed Yañez Anion gap [Moles/Vol] 12.7 mmol/L Normal [facility] Comment on above: Performed By: #### MG COLE, CMP ####[facility] [address] [place] [address]Dr. Nahed Yañez AST [Catalytic activity/Vol] 13 U/L Critically low 15-37 [facility] Comment on above: Performed By: #### MG COLE, CMP ####[facility] [address] [place] [address]Dr. Nahed Yañez Bilirubin [Mass/Vol] 0.4 mg/dL Normal 0.2-1.0 [facility] Comment on above: Performed By: #### MG COLE, CMP ####[facility] [address] [place] [address]Dr. Nahed Yañez Calcium [Mass/Vol] 9.5 mg/dL Normal 8.5-10.1 [facility] Comment on above: Performed By: #### MG COLE, CMP ####[facility] [address] [place] [address]Dr. Nahed Yañez Chloride [Moles/Vol] 100 mmol/L Normal 98-107 [facility] Comment on above: Performed By: #### MG COLE, CMP ####[facility] [address] [place], [place] [address]Dr. Nahed Yañez CO2 [Moles/Vol] 27.1 mmol/L Normal 21.0-32.0 [facility] Comment on above: Performed By: #### MG COLE, CMP ####[facility] [address] [place], [place] [address]Dr. Nahed Yañez Creatinine [Mass/Vol] 1.16 mg/dL Critically high 0.55-1.02 [facility] Comment on above: Performed By: #### MG COLE, CMP ####[facility] [address] [place], [place] [address]Dr. Nahed Yañez EGFR-AF POLISH 58 mL/min/1.73m2 Critically low >=60 [facility] Comment on above: Performed By: #### MG COLE, CMP ####[facility] [address] [place], [place] [address]Dr. Nahed Yañez EGFR-NON AF POLISH 47 mL/min/1.73m2 Critically low >=60 [facility] Comment on above: Performed By: #### MG COLE, CMP ####[facility] Cwoksuzqnq[address] [place], [place] [address]Dr. Nahed Yañez Globulin (S) [Mass/Vol] 3.6 g/dL Normal [facility] Comment on above: Performed By: #### MG COLE, CMP ####[facility] Yupwicifbj[address] [place], [place] [address]Dr. Nahed Yañez Glucose [Mass/Vol] 175 mg/dL Critically high 74-106 [facility] Comment on above: Performed By: #### MG COLE, CMP ####[facility] Qqxmiitshg305[address] [place], [place] [address]Dr. oRsemarieashley Yañez Potassium [Moles/Vol] 3.8 mmol/L Normal 3.5-5.1 [facility] Comment on above: Performed By: #### T RAFITA, MG, CMP ####[facility] X[address]hsrdmsf[address] [place] [address]Dr. Nahed Yañez Protein [Mass/Vol] 7.0 g/dL Normal 6.4-8.2 [facility] Comment on above: Performed By: #### Nydia ELLER MG, CMP ####[facility] Ktxvdvjxrt4[address] [place] [address]Dr. Nahed Yañez Sodium [Moles/Vol] 136 mmol/L Normal 136-145 [facility] Comment on above: Performed By: #### Nydia ELLER MG, CMP ####[facility] Cxshrnycmw168[address] [place], [place] [address]Dr. Nahed Yañez Urea nitrogen [Mass/Vol] 25.0 mg/dL Critically high 7.0-18.0 [facility] Comment on above: Performed By: #### Nydia ELLER MG, CMP ####[facility] Ghvawelebe040[address] [place], [place] [address]Dr. Nahed Yañez Urea nitrogen/Creatinine [Mass ratio] 21.6 mg/mg Normal [facility] Comment on above: Performed By: #### Nydia ELLER MG, CMP ####[facility] Efbfshmgyz[address] [place], [place] [address]Dr. Nahed Yañez THEOPHYLLINEon 08-01-2022 THEOPHYLLINE 17.1 ug/mL Normal 10.0-20.0 [facility] Comment on above: Performed By: #### MG COLE, CMP ####[facility] Jcajbsnyxq230[address] [place], [place] [address]Dr. Nahed Yañez CBC AUTO DIFFon 07-31-2022 BASO # 0.0 103/ul Normal 0.0-0.1 [facility] Comment on above: Performed By: #### C BC ####[facility] Oxunrdsjvo9[address] [place], [place] [address]Dr. Nahed Yañez Basophils/100 WBC (Bld) 0.2 % Normal 0.2-2.0 [facility] Comment on above: Performed By: #### C BC ####[facility] Rvuffbalwv[address] [place], [place] [address]Dr. Nahed Yañez EO # 0.0 103/ul Normal 0.0-0.7 [facility] Comment on above: Performed By: #### C BC ####[facility] Ssyfmjowcd028[address] [place] [id number]. Nahed Yañez Eosinophils/100 WBC (Bld) 0.0 % Critically low 0.9-7.0 [facility] Comment on above: Performed By: #### C BC ####[facility] Craymnvhlu[address]39 [place] [address]Dr. Nahed Yañez Erythrocyte distribution width (RBC) [Ratio] 14.2 % Normal 11.0-15.0 [facility] Comment on above: Performed By: #### C BC ####[facility] Rsytfwurdq634[address] [place], [place] [address]Dr. Nahed Yañez Hematocrit (Bld) [Volume fraction] 36.0 % Normal 36.0-48.0 [facility] Comment on above: Performed By: #### C BC ####[facility] Eqmwjzeywy9424[address] [place], [place] [address]Dr. Nahed Yañez Hemoglobin (Bld) [Mass/Vol] 11.4 g/dL Critically low 12.0-16.0 [facility] Comment on above: Performed By: #### C BC ####[facility] Fczpjuqhaz37[address] [place], [place] [address]Dr. Nahed Yañez IG # 0.21 10e3/ul Critically high 0.00-0.03 [facility] Comment on above: Performed By: #### C BC ####[facility] Iamvontznr3669 [place] [id number]. Nahed Yañez IG % 1.8 % Critically high 0.0-0.5 [facility] Comment on above: Performed By: #### C BC ####[facility] Kcnxviqcdd33[address] [place], [place] [address]Dr. Nahed Yañez LYMPH # 1.3 103/ul Normal 1.2-3.8 [facility] Comment on above: Performed By: #### C BC ####[facility] Vhbalherrv413[address] [place], [place] [address]Dr. Nahed Yañez Lymphocytes/100 WBC (Bld) 11.2 % Critically low 20.5-60.0 [facility] Comment on above: Performed By: #### C BC ####[facility] Pnjyvfuyep4184 [place] [address]Dr. Nahed Yañez MANUAL DIFF REQ NO Normal [facility] Comment on above: Performed By: #### C BC ####[facility] Rjlfufgcei2034 [place] [address]Dr. Nahed Yañez MCH (RBC) [Entitic mass] 27.7 pg Normal 26.7-34.0 [facility] Comment on above: Performed By: #### C BC ####[facility] Ezujzgstki1395[address] [place], [place] [address]Dr. Nahed Yañez MCHC (RBC) [Mass/Vol] 31.7 g/dL Normal 29.9-35.2 [facility] Comment on above: Performed By: #### C BC ####[facility] Wslitmjcwj270[address] [place], [place] [address]Dr. Nahed Yañez MCV (RBC) [Entitic vol] 87.6 fL Normal 81.0-99.0 [facility] Comment on above: Performed By: #### C BC ####[facility] Pbytjpcddq211[address] [place], [place] [address]Dr. Naehd Yañez MONO # 0.8 103/ul Normal 0.3-0.8 [facility] Comment on above: Performed By: #### C BC ####[facility] Ccvvkgyhgx388[address] [place], [place] [address]Dr. Nahed Yañez Monocytes/100 WBC (Bld) 7.0 % Normal 1.7-12.0 [facility] Comment on above: Performed By: #### C BC ####[facility] Orpbbcgtnm729[address] [place], [place] [address]Dr. Nahed Yañez NEUT # 9.2 103/ul Critically high 1.4-6.5 [facility] Comment on above: Performed By: #### C BC ####[facility] Xjtzbsonpg758[address] [place], [place] [address]Dr. Nahed Yañez Neutrophils/100 WBC (Bld) 79.8 % Critically high 43.0-75.0 [facility] Comment on above: Performed By: #### C BC ####[facility] Cwpltpvulk5866 [place] [address]Dr. Nahed Yañez Platelet mean volume (Bld) [Entitic vol] 9.8 fL Normal 9.5-13.5 [facility] Comment on above: Performed By: #### C BC ####[facility] Agjqezxmfr5307 [place] [address]Dr. Nahed Yañez PLT 317 103/ul Normal 150-450 [facility] Comment on above: Performed By: #### C BC ####[facility] Zwummwqqcn0824 [place] [address]Dr. Nahed Yañez RBC 4.11 106/ul Critically low 4.20-5.40 [facility] Comment on above: Performed By: #### C BC ####[facility] Yizhvwselb7770 [place] [address]Dr. Nahed Yañez WBC 11.5 103/ul Critically high 4.0-11.0 The [facility] Comment on above: Performed By: #### C BC ####[facility] Fxrlkpbrzp44[address] [place], [place] [address]Dr. Nahed Yañez MAGNESIUMon 07-31-2022 Magnesium [Mass/Vol] 1.8 mg/dL Normal 1.8-2.4 [facility] Comment on above: Performed By: #### M JUDY Moore, CMP ####[facility] Rkkfxvcajk6958 [place] [address]Dr. Nahed Yañez POINT OF CARE GLUCOSEon -2 0-2022 Glucose [Mass/Vol] 217 mg/dL Critically high 74-106 [facility] Comment on above: Performed By: #### P OCGLUC ####[facility] Stfgojsqmp2796 [place] [address]Dr. Nahed Yañez Glucose [Mass/Vol] 169 mg/dL Critically high 74-106 [facility] Comment on above: Performed By: #### P OCGLUC ####[facility] Osxfrvnuwx5165 [place] [id number]. Nahed Yañez Glucose [Mass/Vol] 297 mg/dL Critically high 74-106 [facility] Comment on above: Performed By: #### P OCGLUC ####[facility] Ldfuxxidjr8483 [place] [id number]. Nahed Yañez Glucose [Mass/Vol] 233 mg/dL Critically high 74-106 [facility] Comment on above: Performed By: #### P OCGLUC ####[facility] Xhgkwrqbxl3371 [place] [address]Dr. Nahed Yañez PROF 14(COMP METB)on 023 Albumin [Mass/Vol] 3.0 g/dL Critically low 3.4-5.0 [facility] Comment on above: Performed By: #### JUDY Castro, CMP ####[facility] Gtvkanaacr0067 [place] [address]Dr. Nahed Yañez Albumin/Globulin [Mass ratio] 0.8 {ratio} Normal [facility] Comment on above: Performed By: #### JUDY Castro, CMP ####[facility] Sphropotza5960 [place] [address]Dr. Nahed Yañez ALP [Catalytic activity/Vol] 83 U/L Normal 46-116 [facility] Comment on above: Performed By: #### JUDY Castro, CMP ####[facility] Ufzdzlmtcq1488 [place] [address]Dr. Nahed Yañez ALT [Catalytic activity/Vol] 21 U/L Normal 14-59 [facility] Comment on above: Performed By: #### JUDY Castro, CMP ####[facility] Coxdmbtcjk9770 [place] [address]Dr. Nahed Yañez Anion gap [Moles/Vol] 14.8 mmol/L Normal [facility] Comment on above: Performed By: #### JUDY Castro, CMP ####[facility] Umtypabnnt4743 [place] [address]Dr. Nahed Yañez AST [Catalytic activity/Vol] 13 U/L Critically low 15-37 [facility] Comment on above: Performed By: #### JUDY Castro CMP ####[facility] Rlqjzihuno326[address] [place], [place] [address]Dr. Nahed Yañez Bilirubin [Mass/Vol] 0.2 mg/dL Normal 0.2-1.0 [facility] Comment on above: Performed By: #### JUDY Castro CMP ####[facility] Dadjemvxrg2497[address] [place], [place] [address]Dr. Nahed Yañez Calcium [Mass/Vol] 9.2 mg/dL Normal 8.5-10.1 [facility] Comment on above: Performed By: #### JUDY Castro, CMP ####[facility] Mplunvtdmz[address] [place], [place] [address]Dr. Nahed Yañez Chloride [Moles/Vol] 101 mmol/L Normal 98-107 [facility] Comment on above: Performed By: #### JUDY Castro, CMP ####[facility] Ahrujquogw1618[address] [place], [place] [address]Dr. Nahed Yañez CO2 [Moles/Vol] 26.5 mmol/L Normal 21.0-32.0 [facility] Comment on above: Performed By: #### JUDY Castro, CMP ####[facility] Ucpkfrpwne[address] [place], [place] [address]Dr. Nahed Yañez Creatinine [Mass/Vol] 1.04 mg/dL Critically high 0.55-1.02 [facility] Comment on above: Performed By: #### JUDY Castro, CMP ####[facility] Lrwtaxwkty1324[address] [place], [place] [address]Dr. Nahed Yañez EGFR-AF POLISH >60 Normal >=60 [facility] Comment on above: Performed By: #### JUDY Castro CMP ####[facility] Ktxnwxbnxt280[address] [place], [place] [address]Dr. Nahed Yañez EGFR-NON AF POLISH 54 mL/min/1.73m2 Critically low >=60 [facility] Comment on above: Performed By: #### JUDY Castro, CMP ####[facility] Irtydlsrfy7531 [place] [address]Dr. Nahed Yañez Globulin (S) [Mass/Vol] 3.6 g/dL Normal [facility] Comment on above: Performed By: #### JUDY Castro, CMP ####[facility] Kvvjrdcznp2968 [place] [address]Dr. Nahed Yañez Glucose [Mass/Vol] 171 mg/dL Critically high 74-106 [facility] Comment on above: Performed By: #### JUDY Castro, CMP ####[facility] Trxlfgexnp6745[address] [place], [place] [address]Dr. Rosemarieashley Yañez Potassium [Moles/Vol] 3.3 mmol/L Critically low 3.5-5.1 [facility] Comment on above: Performed By: #### JUDY Castro CMP ####[facility] Gltxjoxnwq6675[address] [place], [place] [address]Dr. Nahed Yañez Protein [Mass/Vol] 6.6 g/dL Normal 6.4-8.2 [facility] Comment on above: Performed By: #### JUDY Castro CMP ####[facility] Kphijnaomu[address] [place], [place] [address]Dr. Nahed Otilio Sodium [Moles/Vol] 139 mmol/L Normal 136-145 [facility] Comment on above: Performed By: #### JUDY Castro, CMP ####[facility] Mtfzxgjkqu5025[address] [place], [place] [address]Dr. Nahed Otilio Urea nitrogen [Mass/Vol] 23.0 mg/dL Critically high 7.0-18.0 [facility] Comment on above: Performed By: #### JUDY Castro, CMP ####[facility] Nzcqpcgddq2455[address] [place], [place] [address]Dr. Rosemarieashley Otilio Urea nitrogen/Creatinine [Mass ratio] 22.1 mg/mg Normal [facility] Comment on above: Performed By: #### JUDY Castro CMP ####[facility] Pyxskqvmnw3064[address] [place], [place] [address]Dr. Nahed Yañez THEOPHYLLINEon 07-31-2022 THEOPHYLLINE 14.2 ug/mL Normal 10.0-20.0 [facility] Comment on above: Performed By: #### M JUDY Moore, [facility] ####[facility] Snukivdjld[address] [place] [address]Dr. Nahed Yañez BLOOD CULTURE ID PANELon A. baumannii Not detected Normal NOT DETECTED The [facility] Comment on above: Performed By: #### B CID2 ####[facility] Gbyypsojbo4432 [place] [address]Dr. Nahed Yañez Bacteriodes fragilis Not detected Normal NOT DETECTED [facility] Comment on above: Performed By: #### B CID2 ####[facility] Ijumliretm4248[address] [place], [place] [address]Dr. Nahed Yañez BCID CONTROLS PASSED Normal [facility] Comment on above: Performed By: #### B CID2 ####[facility] Gukcrvnfcf1253 [place] [address]Dr. Rosemarieashley Otilio BCIDBTHD BLOOD CULTURE BOTTLE INFORMATION Normal [facility] Comment on above: Performed By: #### B CID2 ####[facility] Yygyeryyyj8305 [place] [address]Dr. Yiashley Yañez BCIDHD1 ANTIMICROBIAL RESISTANCE GENES Normal [facility] Comment on above: Performed By: #### B CID2 ####[facility] Gcwblbtnux6425 [place] [address]Dr. Nahed Yañez BCIDHD2 SEE BELOW Normal [facility] Comment on above: Result Comment: Note : Antimicrobial resitance can occur via multiple mechanisms. A Not Detected result for the [employer] antomicrobial resistance gene assays does not indicate antimicrobial susceptibility. Subculturing is required for species identification and susceptibility testing of isolates. Performed By: #### B CID2 ####[facility] Wlhknxxgnb9[address] [place], [place] [address]Dr. Nahed Yañez BCIDHD3 Positive Normal [facility] Comment on above: Performed By: #### B CID2 ####[facility] Sdjafbzahz210[address] [place], [place] [address]Dr. Nahed Yañez BCIDHD4 Negative Normal [facility] Comment on above: Performed By: #### B CID2 ####[facility] Cjjarlrcvt5610 [place] [address]Dr. Nahed Yañez BCIDHD5 YEAST Normal [facility] Comment on above: Performed By: #### B CID2 ####[facility] Aepxoyylje8659 [place] [address]Dr. Yilan Yañez Bottle Set: Set 2 Normal [facility] Comment on above: Performed By: #### B CID2 ####[facility] Sjvbkyusnc894[address] [place], [place] [address]Dr. Nahed Yañez Bottle: Pediatric Normal [facility] Comment on above: Performed By: #### B CID2 ####[facility] Zhmbpnxemw2849[address] [place], [place] [address]Dr. Nahed Yañez C. neoformans/gattii Not detected Normal NOT DETECTED [facility] Comment on above: Performed By: #### B CID2 ####[facility] Yvppegxwxm3795[address] [place], [place] [address]Dr. Yiashley Yañez Sil albicans Not detected Normal NOT DETECTED [facility] Comment on above: Performed By: #### B CID2 ####[facility] Ofuipaucqe7960[address] [place], [place] [address]Dr. Nahed Yañez Sil auris Not detected Normal NOT DETECTED [facility] Comment on above: Performed By: #### B CID2 ####[facility] Jynurmmukm785[address] [place], [place] [address]Dr. Yiashley Yañez Sil glabrata Not detected Normal NOT DETECTED [facility] Comment on above: Performed By: #### B CID2 ####[facility] Xqwcxhppro7808 [place] [address]Dr. Yiashley Yañez Sil Krusei Not detected Normal NOT DETECTED [facility] Comment on above: Performed By: #### B CID2 ####[facility] Cvnboxulzl4496 [place] [address]Dr. Yiashley Yañez Sil Parapsilosis Not detected Normal NOT DETECTED [facility] Comment on above: Performed By: #### B CID2 ####[facility] Texojwuvlq897[address] [place], [place] [address]Dr. Nahed Yañze Sil Tropicalis Not detected Normal NOT DETECTED [facility] Comment on above: Performed By: #### B CID2 ####[facility] Flgwoumhor5618[address] [place], [place] [address]Dr. Nahed Yañez CTX-M Resistant Gene Not Applicable Normal NOT DETECTE D [facility] Comment on above: Performed By: #### B CID2 ####[facility] Szdxulpwik373[address] [place], [place] [address]Dr. Nahed Yañez E. Cloacae complex Not detected Normal NOT DETECTED [facility] Comment on above: Performed By: #### B CID2 ####[facility] Mmaeullnhm[address] [place], [place] [address]Dr. Nahed Yañez E. faecalis Not detected Normal NOT DETECTED [facility] Comment on above: Performed By: #### B CID2 ####[facility] Mqrteopyfv70264[address] [place], [place] [address]Dr. Nahed Yañez E. faecium Not detected Normal NOT DETECTED [facility] Comment on above: Performed By: #### B CID2 ####[facility] Fszjnsylct101[address] [place], [place] [address]Dr. Nahed Yañez Enterobacteriaceae Not detected Normal NOT DETECTED [facility] Comment on above: Performed By: #### B CID2 ####[facility] Ybtzbbtlim5944[address] [place], [place] [address]Dr. Nahed Yañez Escherichia coli Not detected Normal NOT DETECTED [facility] Comment on above: Performed By: #### B CID2 ####[facility] Mgfcrmcdkt786[address] [place], [place] [address]Dr. Nahed Yañez H. influenzae Not detected Normal NOT DETECTED [facility] Comment on above: Performed By: #### B CID2 ####[facility] Bymofnlbnm0418[address] [place], [place] [address]Dr. Nahed Yañez IMP Resistant Gene Not Applicable Normal NOT DETECTED [facility] Comment on above: Performed By: #### B CID2 ####[facility] Ehrcybqunq3957[address] [place], [place] [address]Dr. Nahed Yañez K. oxytoca Not detected Normal NOT DETECTED [facility] Comment on above: Performed By: #### B CID2 ####[facility] Iqwisxbyhg245[address] [place], [place] [address]Dr. Nahed Otilio K. pneumoniae Not detected Normal NOT DETECTED [facility] Comment on above: Performed By: #### B CID2 ####[facility] Urktlqtaln3358[address] [place], [place] [address]Dr. Nahed Otilio Klebsiella aerogenes Not detected Normal NOT DETECTED [facility] Comment on above: Performed By: #### B CID2 ####[facility] Uoqgefbjma1345[address] [place], [place] [address]Dr. Nahed Yañez KPC Resistant Gene Not detected Normal NOT DETECTED [facility] Comment on above: Performed By: #### B CID2 ####[facility] Igazovxrqo850[address] [place], [place] [address]Dr. Nahed Yañez List. monocytogenes Not detected Normal NOT DETECTED [facility] Comment on above: Performed By: #### B CID2 ####[facility] Uhdncgiuuw04224[address] [place], [place] [address]Dr. Rosemarieashley Otilio Mcr-1 Resistant Gene Not Applicable Normal NOT DETECTE D [facility] Comment on above: Performed By: #### B CID2 ####[facility] Idpjuxrmug8570[address] [place], [place] [address]Dr. Rosemarielan Otilio mecA/C Not Applicable Normal NOT DETECTED The [facility] Comment on above: Performed By: #### B CID2 ####[facility] Eqgmzrwhqr3845[address] [place], [place] [address]Dr. Rosemarieashley Otilio mecA/C MREJ Not Applicable Normal NOT DETECTED [facility] Comment on above: Performed By: #### B CID2 ####[facility] Aimatlmygo9227[address] [place], [place] [address]Dr. Nahed Yañez N. meningitidis Not detected Normal NOT DETECTED [facility] Comment on above: Performed By: #### B CID2 ####[facility] Vktueplgyr5195[address] [place], [place] [address]Dr. Nahed Yañez NDM Resistant Gene Not Applicable Normal NOT DETECTED [facility] Comment on above: Performed By: #### B CID2 ####[facility] Mjrpecjmrd0685[address] [place], [place] [address]Dr. Nahed Yañez Oxa-48-like Not Applicable Normal NOT DETECTED [facility] Comment on above: Performed By: #### B CID2 ####[facility] Orepgullno7112[address] [place], [place] [address]Dr. Rosemarieashley Yañez Proteus Not detected Normal NOT DETECTED [facility] Comment on above: Performed By: #### B CID2 ####[facility] Ngpvujwinq309[address] [place], [place] [address]Dr. Nahed Yañez Pseud. aeruginosa Not detected Normal NOT DETECTED [facility] Comment on above: Performed By: #### B CID2 ####[facility] Qnlteagevr7411[address] [place], [place] [address]Dr. Nahed Yañez S. maltophilia Not detected Normal NOT DETECTED [facility] Comment on above: Performed By: #### B CID2 ####[facility] Gvcbfrhwtw6269[address] [place], [place] [address]Dr. Rosemarieashley Yañez Salmonella Not detected Normal NOT DETECTED [facility] Comment on above: Performed By: #### B CID2 ####[facility] Makpjrcpqb6029[address] [place], [place] [address]Dr. Nahed Yañez Seratia marcescens Not detected Normal NOT DETECTED [facility] Comment on above: Performed By: #### B CID2 ####[facility] Kbqtfaxyik[address] [place], [place] [address]Dr. Naehd Yañez Site: R AC Normal [facility] Comment on above: Performed By: #### B CID2 ####[facility] Vfyldoilpx7523[address] [place], [place] [address]Dr. Nahed Yañez Staph. aureus Not detected Normal NOT DETECTED [facility] Comment on above: Performed By: #### B CID2 ####[facility] Hgyopgodzp1897[address] [place], [place] [address]Dr. Nahed Yañez Staph. epidermidis Not detected Normal NOT DETECTED [facility] Comment on above: Performed By: #### B CID2 ####[facility] Tpgijqhhck[address] [place], [place] [address]Dr. Nahed Yañez Staph. lugdunensis Not detected Normal NOT DETECTED [facility] Comment on above: Performed By: #### B CID2 ####[facility] Kgibfkkhnu[address] [place], [place] [address]Dr. Nahed Yañez Staphylococcus Detected Critically abnormal NOT DETECTED [facility] Comment on above: Performed By: #### B CID2 ####[facility] Bgvtxyjdzz924[address] [place], [place] [address]Dr. Nahed Yañez Strep. agalactiae Not detected Normal NOT DETECTED [facility] Comment on above: Performed By: #### B CID2 ####[facility] Sdbkgyxjkz543[address] [place], [place] [address]Dr. Nahed Yañez Strep. pneumoniae Not detected Normal NOT DETECTED [facility] Comment on above: Performed By: #### B CID2 ####[facility] Lfvadrxkze9[address] [place], [place] [address]Dr. Nahed Yañez Strep. pyogenes Not detected Normal NOT DETECTED [facility] Comment on above: Performed By: #### B CID2 ####[facility] Oycwswjyxr[address] [place], [place] [address]Dr. Nahed Yañez Streptococcus Not detected Normal NOT DETECTED [facility] Comment on above: Performed By: #### B CID2 ####[facility] Idgzhuevib[address] [place], [place] [address]Dr. Nahed Yañez Tucker/B Resist. Gene Not detected Normal NOT DETECTED [facility] Comment on above: Performed By: #### B CID2 ####[facility] Ejewtmsdno[address] [place], [place] [address]Dr. Nahed Yañez VIM Resistant Gene Not Applicable Normal NOT DETECTED [facility] Comment on above: Performed By: #### B CID2 ####[facility] Zaaafqssvp[address] [place], [place] [address]Dr. Nahed Yañez CARDIAC FRANCISCO 3-6on 3 CK [Catalytic activity/Vol] 25 U/L Critically low 26-192 [facility] Comment on above: Performed By: #### C MREP ####[facility] Kwnspnzcul27[address] [place] [id number]. Nahed Yañez CK.MB [Mass/Vol] ng/mL Normal <=3.60 The [facility] Comment on above: Performed By: #### C MREP ####[facility] Pkgytegywh4342 [place] [id number]. Nahed Yañez HSTROP 35.8 pg/mL Normal 4.0-51.3 [facility] Comment on above: Result Comment: CUT- OFF POINTS HAVE BEEN ESTABLISHED BASED ON THE FOURTH UNIVERSAL DEFINITIONS OF MYOCARDIALINFARCTION. THE UPPER REFERENCE LIMIT (URL) OF TROPONIN, DEFINED THE 99TH PERCENTILE OFcTnI DISTRIBUTION IN A REFERENCE POPULATION, HAS BEEN CONFIRMED THE DECISION THRESHOLDFOR OR DIAGNOSIS. Performed By: #### C MREP ####[facility] Yhssdlcfxg2[address] [place] [address]Dr. Nahed Yañez CK [Catalytic activity/Vol] 28 U/L Normal 26-192 [facility] Comment on above: Performed By: #### C MREP ####[facility] Ujdekjskzt8660 [place] [id number]. Nahed Yañez CK.MB [Mass/Vol] ng/mL Normal <=3.60 The [facility] Comment on above: Performed By: #### C MREP ####[facility] Giaujsmueu6539 [place] [address]Dr. Naehd Yañez HSTROP 36.8 pg/mL Normal 4.0-51.3 [facility] Comment on above: Result Comment: CUT- OFF POINTS HAVE BEEN ESTABLISHED BASED ON THE FOURTH UNIVERSAL DEFINITIONS OF MYOCARDIALINFARCTION. THE UPPER REFERENCE LIMIT (URL) OF TROPONIN, DEFINED THE 99TH PERCENTILE OFcTnI DISTRIBUTION IN A REFERENCE POPULATION, HAS BEEN CONFIRMED THE DECISION THRESHOLDFOR OR DIAGNOSIS. Performed By: #### C MREP ####[facility] Bvfriuvdiz1158 [place] [address]Dr. Nahed Yañez CBC AUTO DIFFon 07-30-2022 BASO # 0.0 103/ul Normal 0.0-0.1 [facility] Comment on above: Performed By: #### C BC ####[facility] Pjyedmwhye4507 [place] [id number]. Nahed Yañez Basophils/100 WBC (Bld) 0.1 % Critically low 0.2-2.0 [facility] Comment on above: Performed By: #### C BC ####[facility] Eaygarehjr8460 [place] [id number]. Nahed Yañez EO # 0.0 103/ul Normal 0.0-0.7 [facility] Comment on above: Performed By: #### C BC ####[facility] Fnlqjbkuyo9642 [place] [address]Dr. Nahed Yañez Eosinophils/100 WBC (Bld) 0.0 % Critically low 0.9-7.0 [facility] Comment on above: Performed By: #### C BC ####[facility] Cmszdhvgpo45[address] [place], [place] [address]Dr. Nahed Yañez Erythrocyte distribution width (RBC) [Ratio] 14.4 % Normal 11.0-15.0 [facility] Comment on above: Performed By: #### C BC ####[facility] Qryconnedq15[address] [place], [place] [address]Dr. Nahed Yañez Hematocrit (Bld) [Volume fraction] 37.7 % Normal 36.0-48.0 [facility] Comment on above: Performed By: #### C BC ####[facility] Kazsnnjfyf04[address] [place], [place] [address]Dr. Nahed Yañez Hemoglobin (Bld) [Mass/Vol] 12.1 g/dL Normal 12.0-16.0 [facility] Comment on above: Performed By: #### C BC ####[facility] Qrtzvgvdcu91[address] [place], [place] [address]Dr. Nahed Yañez IG # 0.07 10e3/ul Critically high 0.00-0.03 [facility] Comment on above: Performed By: #### C BC ####[facility] Ryxsrpiaid[address] [place], [place] [id number]. Nahed Yañez IG % 0.5 % Normal 0.0-0.5 [facility] Comment on above: Performed By: #### C BC ####[facility] Cklxjwwksu1628 [place] [id number]. Nahed Yañez LYMPH # 1.0 103/ul Critically low 1.2-3.8 [facility] Comment on above: Performed By: #### C BC ####[facility] Sdsvopkbyd7665 [place] [id number]. Nahed Yañez Lymphocytes/100 WBC (Bld) 7.6 % Critically low 20.5-60.0 [facility] Comment on above: Performed By: #### C BC ####[facility] Ipuacfzflw0908 [place] [id number]. Nahed Yañez MANUAL DIFF REQ NO Normal [facility] Comment on above: Performed By: #### C BC ####[facility] Tquwahbvcs5240 [place] [id number]. Nahed Yañez MCH (RBC) [Entitic mass] 28.8 pg Normal 26.7-34.0 [facility] Comment on above: Performed By: #### C BC ####[facility] Pipccatfvm5932 [place] [id number]. Nahed Yañez MCHC (RBC) [Mass/Vol] 32.1 g/dL Normal 29.9-35.2 [facility] Comment on above: Performed By: #### C BC ####[facility] Slinwucmvs9633 [place] [id number] Yañez MCV (RBC) [Entitic vol] 89.8 fL Normal 81.0-99.0 [facility] Comment on above: Performed By: #### C BC ####[facility] Koixrywwlo9246 [place] [id number] Yañez MONO # 0.2 103/ul Critically low 0.3-0.8 [facility] Comment on above: Performed By: #### C BC ####[facility] Ztunyiqgsl5753 [place] [id number]. Nahed Yañez Monocytes/100 WBC (Bld) 1.5 % Critically low 1.7-12.0 [facility] Comment on above: Performed By: #### C BC ####[facility] Bmsclczlxz9068 [place] [id number]. Nahed Yañez NEUT # 11.7 103/ul Critically high 1.4-6.5 [facility] Comment on above: Performed By: #### C BC ####[facility] Jfxdcfasgv8878 [place] [address]Dr. Nahed Yañez Neutrophils/100 WBC (Bld) 90.3 % Critically high 43.0-75.0 [facility] Comment on above: Performed By: #### C BC ####[facility] Ihoipsgasj4989 [place] [id number]. Nahed Yañez Platelet mean volume (Bld) [Entitic vol] 9.9 fL Normal 9.5-13.5 [facility] Comment on above: Performed By: #### C BC ####[facility] Kxahfxwefj9129 [place] [address]Dr. Nahed Yañez PLT 319 103/ul Normal 150-450 [facility] Comment on above: Performed By: #### C BC ####[facility] Mcvihfrzqw2[address] [place], [place] [address]Dr. Nahed Yañez RBC 4.20 106/ul Normal 4.20-5.40 [facility] Comment on above: Performed By: #### C BC ####[facility] Wdfjtcyzsh20[address] [place], [place] [address]Dr. Nahed Yañez WBC 13.0 103/ul Critically high 4.0-11.0 [facility] Comment on above: Performed By: #### C BC ####[facility] Agvxvucvbr6765 [place] [id number]. Nahed Yañez CULTURE BLOODon 07-30-2022 Microscopic examination of blood, culture Culture Observations: NO GROWTH AT 5 DAYS. Normal [facility] Comment on above: Performed By: #### B LDCX1 ####[facility] Gzscpexhgl8763 [place] [id number]. Nahed Yañez CULTURE SPUTUMon 07-30-2022 CULTURE SPUTUM Culture Observations : NORMAL RESPIRATORY MIGUEL. Normal [facility] Comment on above: Performed By: #### S PUTCX ####[facility] Apruxwemhj8066 [place] [address]Dr. Nahed Yañez CULTURE URINEon 07-30-2022 CULTURE URINE Culture Observations : MODERATE GROWTH OF MIXED GENITAL MIGUEL. NO POTENTIAL PATHOGENS SEEN. Normal [facility] Comment on above: Performed By: #### U RCX ####[facility] Ysxdxwucup0084 [place] [address]Dr. Nahed Yañez Covid-19 PCR (CVDTB)on 07-12 SARS-CoV-2 (COVID-19) RNA MIRNA+probe Ql (Unsp spec) Not detected Normal NOT DETECTED [facility] Comment on above: Result Comment: When diagnostic [...] for this test is supported by the [place] of Health and Human Service's declaration that [...] be used). Performed By: #### C VDTBH ####[facility] Vkgnwnbshy1143 [place] [id number]. Nahed Yañez ER URINE PROFILEon 3 Bilirubin Ql (U) Negative Normal NEGATIVE [facility] Comment on above: Performed By: #### E YARELIS ALCARAZ ####[facility] Jhyuelglyz4636 [place] [id number]. Nahed Yañez Clarity (U) CLEAR Normal CLEAR [facility] Comment on above: Performed By: #### E YARELIS ALCARAZ ####[facility] Ioguqcpiai6988 [place] [address]Dr. Nahed Yañez Color (U) LT. YELLOW Normal YELLOW [facility] Comment on above: Performed By: #### NUNU DOVERO ####[facility] Ggzptyuqzl6865 [place] [address]Dr. Nahed Yañez ERUAHD A micrscopic examination will be performed if indicated. Normal [facility] Comment on above: Performed By: #### NUNU DOVERO ####[facility] Qznqqeikhv7624 [place] [address]Dr. Nahed Yañez Glucose Ql (U) 500 mg/dl Abnormal NEGATIVE [facility] Comment on above: Performed By: #### NUNU DOVERO ####[facility] Ymxtjolnjb[address] [place], [place] [address]Dr. Nahed Yañez Hemoglobin Ql (U) Negative Normal NEGATIVE [facility] Comment on above: Performed By: #### NUNU DOVERO ####[facility] Oxmszxaecc110[address] [place], [place] [address]Dr. Nahed Yañez Ketones Ql (U) Negative Normal NEGATIVE [facility] Comment on above: Performed By: #### YARELIS DOVE ####[facility] Amhefyhiaw[address] [place], [place] [address]Dr. Nahed Yañez LEUKOCYTES TRACE Abnormal NEGATIVE [facility] Comment on above: Performed By: #### NUNU DOVERO ####[facility] Nmridyxegu987[address] [place], [place] [address]Dr. Nahed Yañez Nitrite Ql (U) Negative Normal NEGATIVE [facility] Comment on above: Performed By: #### NUNU DOVERO ####[facility] Gorvwkureg4[address] [place], [place] [address]Dr. Nahed Yañez pH (U) 6.0 [pH] Normal 5-9 [facility] Comment on above: Performed By: #### YARELIS DOVE ####[facility] Swfewwidjf400[address] [place], [place] [address]Dr. Nahed Yañez SPEC GRAVITY >=1.030 Abnormal 1.005-<=1.02 5 [facility] Comment on above: Performed By: #### YARELIS DOVE ####[facility] Hrjgjengvj87[address] [place], [place] [address]Dr. Nahed Yañez UA PROTEIN Negative Normal NEGATIVE/ TRACE [facility] Comment on above: Performed By: #### YARELIS DOVE ####[facility] Vwmbivtokr0250[address] [place], [place] [address]Dr. Nahed Yañez UR MICRO IND INDICATED Normal [facility] Comment on above: Performed By: #### YARELIS DOVE ####[facility] Mexnbghxha6823[address] [place], [place] [address]Dr. Nahed Yañez Urobilinogen Qn (U) 0.2 {Alem'U}/dL Normal 0.2 - 1. 0 [facility] Comment on above: Performed By: #### YARELIS DOVE ####[facility] Ixvdgrevou[address] [place], [place] [address]Dr. Nahed Yañez INFLUENZA A AND B AGon 07-30 INFLUANEGH SEE BELOW Normal [facility] Comment on above: Result Comment: Nega tive for Flu A protein angiten. Infection due to Flu A cannot be ruled out. Flu A angiten in the sample may be below the detection limit of the test. Performed By: #### I NFLUAB ####[facility] Vumptnvvqb8[address] [place], [place] [address]Dr. Nahed Yañez INFLUBNEGH SEE BELOW Normal [facility] Comment on above: Result Comment: Nega tive for Flu B protein antigen. Infection due to Flu B cannot be ruled out. Flu B antigen in the sample may be below the detection limit of the test. Performed By: #### I NFLUAB ####[facility] Ahnwbcchfo914[address] [place], [place] [address]Dr. Nahed Yañez INFLUENZA A AG Negative Normal NEGATIVE SEE COMMENT [facility] Comment on above: Performed By: #### I NFLUAB ####[facility] Renhixaxiv543[address] [place], [place] [address]Dr. Nahed Yañez INFLUENZA B AG Negative Normal NEGATIVE SEE COMMENT [facility] Comment on above: Performed By: #### I NFLUAB ####[facility] Opowfkaynp7505[address] [place], [place] [address]Dr. Nahed Yañez LACTATE/LACTIC ACIDon 2022 Lactate [Moles/Vol] 2.5 mmol/L Critically high 0.4-2.0 [facility] Comment on above: Performed By: #### L ACT ####[facility] Xztselydjy897[address] [place], [place] [address]Dr. Nahed Yañez Lactate [Moles/Vol] 3.3 mmol/L Critically high 0.4-2.0 [facility] Comment on above: Performed By: #### L ACT ####[facility] Qtevilcnms6249[address] [place], [place] [address]Dr. Nahed Yañez Lactate [Moles/Vol] 2.7 mmol/L Critically high 0.4-2.0 [facility] Comment on above: Performed By: #### L ACT ####[facility] Fgvjblnauf839[address] [place], [place] [address]Dr. Nahed Yañez Lactate [Moles/Vol] 2.8 mmol/L Critically high 0.4-2.0 [facility] Comment on above: Performed By: #### L ACT ####[facility] Pfgdkrsrkd6425[address] [place], [place] [address]Dr. Nahed Yañez MAGNESIUMon 07-30-2022 Magnesium [Mass/Vol] 1.9 mg/dL Normal 1.8-2.4 [facility] Comment on above: Performed By: #### M G, CMP ####[facility] Gqvcvbhgoh27[address] [place], [place] [address]Dr. Nahed Yañez POINT OF CARE GLUCOSEon 07-12 Glucose [Mass/Vol] 220 mg/dL Critically high -106 [facility] Comment on above: Performed By: #### P OCGLUC ####[facility] Yqxzrizuli6[address] [place], [place] [address]Dr. Nahed Yañez Glucose [Mass/Vol] 162 mg/dL Critically high 74-106 [facility] Comment on above: Result Comment: Kaycee clemons Meter Performed By: #### P OCGLUC ####[facility] Ssblowgsjb4071 [place] [address]Dr. Nahed Yañez PROF 14(COMP METB)on 023 Albumin [Mass/Vol] 2.9 g/dL Critically low 3.4-5.0 [facility] Comment on above: Performed By: #### Pablo Moore, CMP ####[facility] Mjvgvnbmwo254[address] [place], [place] [address]Dr. Nahed Yañez Albumin/Globulin [Mass ratio] 0.8 {ratio} Normal [facility] Comment on above: Performed By: #### Pablo Moore, CMP ####[facility] Ptrbdrmojp[address] [place], [place] [address]Dr. Nahed Yañez ALP [Catalytic activity/Vol] 94 U/L Normal 46-116 [facility] Comment on above: Performed By: #### Pablo Moore, CMP ####[facility] Oxepwqfldf858[address] [place], [place] [address]Dr. Nahed Yañez ALT [Catalytic activity/Vol] 22 U/L Normal 14-59 [facility] Comment on above: Performed By: #### Pablo Moore, CMP ####[facility] Eblivqbufi9[address] [place], [place] [address]Dr. Nahed Yañez Anion gap [Moles/Vol] 12.4 mmol/L Normal [facility] Comment on above: Performed By: #### Pablo Moore, CMP ####[facility] Atztrchise27[address] [place], [place] [address]Dr. Nahed Yañez AST [Catalytic activity/Vol] 18 U/L Normal 15-37 [facility] Comment on above: Performed By: #### Pablo Moore, CMP ####[facility] Dmdyqoahay620[address] [place], [place] [address]Dr. Nahed Yañez Bilirubin [Mass/Vol] 0.1 mg/dL Critically low 0.2-1.0 [facility] Comment on above: Performed By: #### Pablo Moore, CMP ####[facility] Htzdavnves[address] [place], [place] [address]Dr. Nahed Yañez Calcium [Mass/Vol] 8.9 mg/dL Normal 8.5-10.1 [facility] Comment on above: Performed By: #### M Teresa, CMP ####[facility] Bsvddgnmpt3686 [place] [address]Dr. Nahed Yañez Chloride [Moles/Vol] 99 mmol/L Normal 98-107 [facility] Comment on above: Performed By: #### M G, CMP ####[facility] Rojafzjyta2595 [place] [address]Dr. Nahed Yañez CO2 [Moles/Vol] 26.0 mmol/L Normal 21.0-32.0 [facility] Comment on above: Performed By: #### Pablo Moore, CMP ####[facility] Gmcsigolrm17[address] [place], [place] [address]Dr. Nahed Yañez Creatinine [Mass/Vol] 1.16 mg/dL Critically high 0.55-1.02 [facility] Comment on above: Performed By: #### Pablo Moore, CMP ####[facility] Yzbaqlmyab5201[address] [place], [place] [address]Dr. Nahed Otilio EGFR-AF POLISH 58 mL/min/1.73m2 Critically low >=60 [facility] Comment on above: Performed By: #### Pablo Moore, CMP ####[facility] Rwgtqzjrrr8[address] [place], [place] [address]Dr. Nahed Otilio EGFR-NON AF POLISH 47 mL/min/1.73m2 Critically low >=60 [facility] Comment on above: Performed By: #### Pablo Moore, CMP ####[facility] Fhcfezkavz5829 [place] [address]Dr. Nahed Otilio Globulin (S) [Mass/Vol] 3.7 g/dL Normal [facility] Comment on above: Performed By: #### Pablo Moore, CMP ####[facility] Qxwyxqrcyp4463 [place] [address]Dr. Nahed Yañez Glucose [Mass/Vol] 267 mg/dL Critically high 74-106 [facility] Comment on above: Performed By: #### Pablo Moore, CMP ####[facility] Vlthvabele7040 [place] [address]Dr. Nahed Yañez Potassium [Moles/Vol] 4.4 mmol/L Normal 3.5-5.1 [facility] Comment on above: Performed By: #### Pablo G, CMP ####[facility] Slskbhhnqt1934[address] [place], [place] [address]Dr. Nahed Yañez Protein [Mass/Vol] 6.6 g/dL Normal 6.4-8.2 [facility] Comment on above: Performed By: #### Pablo Moore, CMP ####[facility] Jhofjvqhhr8488 [place] [address]Dr. Nahed Yañez Sodium [Moles/Vol] 133 mmol/L Critically low 136-145 [facility] Comment on above: Performed By: #### Pablo Moore, CMP ####[facility] Lvxtuyciip1325[address] [place], [place] [address]Dr. Nahed Yañez Urea nitrogen [Mass/Vol] 33.0 mg/dL Critically high 7.0-18.0 [facility] Comment on above: Performed By: #### Pablo Moore, CMP ####[facility] Bvkiifuueq616[address] [place], [place] [address]Dr. Nahed Yañez Urea nitrogen/Creatinine [Mass ratio] 28.4 mg/mg Normal [facility] Comment on above: Performed By: #### Pablo Moore, CMP ####[facility] Ayjvtaawsv6[address] [place], [place] [address]Dr. Nahed Yañez SPUTUM GRAM STAINon 07-31-19 COMMENTS Normal [facility] Comment on above: Performed By: #### S PUTGS ####[facility] Wjhtkrrdmj07[address] [place], [place] [address]Dr. Nahed Yañez DIPHTHEROIDS Normal [facility] Comment on above: Performed By: #### S PUTGS ####[facility] Yhpdyqwpag[address] [place], [place] [address]Dr. Nahed Yañez EPITHELIALS <25 Normal [facility] Comment on above: Performed By: #### S PUTGS ####[facility] Tttqnfwgcx[address] [place], [place] [address]Dr. Nahed Yañez FUNGAL ELEMENTS Normal [facility] Comment on above: Performed By: #### S PUTGS ####[facility] Uhjwrgocee7315 [place] [address]Dr. Nahed Yañez GRAM NEG BACILLI Normal [facility] Comment on above: Performed By: #### S PUTGS ####[facility] Rmgxquhakr7236 [place] [address]Dr. Nahed Yañez GRAM NEG DIPPLOCOCCI Normal [facility] Comment on above: Performed By: #### S PUTGS ####[facility] Xbfsgyavnp0065 [place] [address]Dr. Nahed Yañez GRAM POS BACILLI FEW Normal [facility] Comment on above: Performed By: #### S PUTGS ####[facility] Cfkmizgnow8379 [place] [address]Dr. Nahed Yañez GRAM POSITIVE COCCI FEW Normal [facility] Comment on above: Performed By: #### S PUTGS ####[facility] Lujtgupfjx[address] [place], [place] [address]Dr. Nahed Yañez WBC (Bld) [#/Vol] 10*3/uL Normal [facility] Comment on above: Performed By: #### S PUTGS ####[facility] Eupotcbqky62[address] [place], [place] [address]Dr. Nahed Yañez URINE MICROSCOPIC ONLYon BACTERIA SMALL Abnormal NONE SEEN [facility] Comment on above: Performed By: #### YARELIS DOVE ####[facility] Qmopjphnzz0483 [place] [address]Dr. Nahed Yañez Bacteria identified Cx Nom (U) INDICATED Normal [facility] Comment on above: Performed By: #### NUNU DOVERO ####[facility] Cbtkhyktlj0974 [place] [address]Dr. Nahed Yañez CAST NONE SEEN Normal NONE SEEN [facility] Comment on above: Performed By: #### NUNU DOVERO ####[facility] Hnqmraqwfb5654 [place] [address]Dr. Nahed Yañez Crystals LM Nom (Urine sed) NONE SEEN Normal NONE SEEN [facility] Comment on above: Performed By: #### Isidoro ALCARAZ UMICRO ####[facility] Jznvkvncuw4046 [place] [address]Dr. Nahed Yañez Epithelial cells LM Ql (Urine sed) FEW Abnormal NONE SEEN /RARE [facility] Comment on above: Performed By: #### Isidoro ALCARAZ UMICRO ####[facility] Otnpaejcyx4744 [place] [id number]. Nahed Yañez MUCOUS TRACE Abnormal NONE SEEN [facility] Comment on above: Performed By: #### Isidoro ALCARAZ UMICRO ####[facility] Faraadajpl8960 [place] [id number]. Nahed Yañez RBC 0-2 Normal 0-2 [facility] Comment on above: Performed By: #### Isidoro ALCARAZ UMICRO ####[facility] Xxvhkjmyhr7235 [place] [address]Dr. Nahed Yañez WBC 0-2 Abnormal NONE SEEN [facility] Comment on above: Performed By: #### Isidoro ALCARAZ UMICRO ####[facility] Xeogwilgew0180 [place] [address]Dr. Nahed Yañez XR CHEST 1 Von 07-30-2022 XR CHEST 1 V Normal [facility] CARDIAC FRANCISCO ADMITon 023 CK [Catalytic activity/Vol] 59 U/L Normal 26-192 [facility] Comment on above: Performed By: #### BLADIMIR SINGH ####[facility] Pbouhwzqzc4608 [place] [address]Dr. Nahed Yañez CK.MB [Mass/Vol] 0.59 ng/mL Normal <=3.60 [facility] Comment on above: Performed By: #### BLADIMIR SINGH ####[facility] Shidkbldnv[address] [place], [place] [address]Dr. Nahed Yañez HSTROP 40.7 pg/mL Normal 4.0-51.3 [facility] Comment on above: Result Comment: CUT- OFF POINTS HAVE BEEN ESTABLISHED BASED ON THE FOURTH UNIVERSAL DEFINITIONS OF MYOCARDIALINFARCTION. THE UPPER REFERENCE LIMIT (URL) OF TROPONIN, DEFINED THE 99TH PERCENTILE OFcTnI DISTRIBUTION IN A REFERENCE POPULATION, HAS BEEN CONFIRMED THE DECISION THRESHOLDFOR OR DIAGNOSIS. Performed By: #### C BLADIMIR AGRAWAL ####[facility] Epcxjoysfd99[address] [place] [address]Dr. Nahed Yañez ANDRE 89 ng/mL Critically high 9-82 [facility] Comment on above: Performed By: #### C BLADIMIR AGRAWAL ####[facility] [address]pu[address] [place] [address]Dr. Nahed Otilio CBC AUTO DIFFon 07-29-2022 BASO # 0.0 103/ul Normal 0.0-0.1 [facility] Comment on above: Performed By: #### C BC ####[facility] Hdetguxptg129[address] [place], [place] [address]Dr. Nahed Yañez Basophils/100 WBC (Bld) 0.1 % Critically low 0.2-2.0 [facility] Comment on above: Performed By: #### C BC ####[facility] Eltrobjxtj[address] [place], [place] [address]Dr. Nahed Otilio EO # 0.0 103/ul Normal 0.0-0.7 [facility] Comment on above: Performed By: #### C BC ####[facility] Tvqqvnohzh[address] [place], [place] [address]Dr. Nahed Yañez Eosinophils/100 WBC (Bld) 0.0 % Critically low 0.9-7.0 [facility] Comment on above: Performed By: #### C BC ####[facility] Ygbukgzlcb27[address] [place], [place] [address]Dr. Nahed Yañez Erythrocyte distribution width (RBC) [Ratio] 14.5 % Normal 11.0-15.0 [facility] Comment on above: Performed By: #### C BC ####[facility] Zkmtlhszda69[address] [place], [place] [address]Dr. Rosemarieashley Otilio Hematocrit (Bld) [Volume fraction] 42.1 % Normal 36.0-48.0 [facility] Comment on above: Performed By: #### C BC ####[facility] Qof[address] [place] [address]Ky. Nahed Yañez Hemoglobin (Bld) [Mass/Vol] 13.4 g/dL Normal 12.0-16.0 [facility] Comment on above: Performed By: #### C BC ####[facility] Ksvqwcoogu85[address] [place] [address]Dr. Nahed Yañez IG # 0.07 10e3/ul Critically high 0.00-0.03 [facility] Comment on above: Performed By: #### C BC ####[facility] Qlpzmnmeyb1207 [place] [address]Dr. Nahed Otilio IG % 0.5 % Normal 0.0-0.5 [facility] Comment on above: Performed By: #### C BC ####[facility] Xwxrjtnhtg8116 [place] [address]Dr. Rosemarieashley Otilio LYMPH # 3.2 103/ul Normal 1.2-3.8 [facility] Comment on above: Performed By: #### C BC ####[facility] Kushxhrwma0155[address] [place], [place] [address]Dr. Nahed Otilio Lymphocytes/100 WBC (Bld) 21.2 % Normal 20.5-60.0 [facility] Comment on above: Performed By: #### C BC ####[facility] Enibdmgust5062 [place] [address]Dr. Nahed Otilio MANUAL DIFF REQ NO Normal [facility] Comment on above: Performed By: #### C BC ####[facility] Tkihlanlwo5396 [place] [address]Dr. Nahed Yañez MCH (RBC) [Entitic mass] 28.1 pg Normal 26.7-34.0 [facility] Comment on above: Performed By: #### C BC ####[facility] Taiemjkbit3318[address] [place], [place] [address]Dr. Nahed Otilio MCHC (RBC) [Mass/Vol] 31.8 g/dL Normal 29.9-35.2 [facility] Comment on above: Performed By: #### C BC ####[facility] Uayfuqhyig510[address] [place], [place] [address]Dr. Nahed Otilio MCV (RBC) [Entitic vol] 88.3 fL Normal 81.0-99.0 [facility] Comment on above: Performed By: #### C BC ####[facility] Qglyxscmjw2858 [place] [address]Dr. Nahed Yañez MONO # 1.0 103/ul Critically high 0.3-0.8 [facility] Comment on above: Performed By: #### C BC ####[facility] Ltwpdolaqg0233 [place] [address]Dr. Nahed Yañez Monocytes/100 WBC (Bld) 6.3 % Normal 1.7-12.0 [facility] Comment on above: Performed By: #### C BC ####[facility] Brzwraftiu9349[address] [place], [place] [address]Dr. Nahed Otilio NEUT # 11.0 103/ul Critically high 1.4-6.5 The [facility] Comment on above: Performed By: #### C BC ####[facility] Robloftyvr019[address] [place], [place] [address]Dr. Rosemarieashley Yañez Neutrophils/100 WBC (Bld) 71.9 % Normal 43.0-75.0 [facility] Comment on above: Performed By: #### C BC ####[facility] Nzcgehkdyu1860[address] [place], [place] [address]Dr. Rosemarieashley Yañez Platelet mean volume (Bld) [Entitic vol] 9.9 fL Normal 9.5-13.5 [facility] Comment on above: Performed By: #### C BC ####[facility] Zldfikqenz0908[address] [place], [place] [address]Dr. Rosemarieashley Otilio PLT 385 103/ul Normal 150-450 [facility] Comment on above: Performed By: #### C BC ####[facility] Xptzykbjmc5658[address] [place], [place] [address]Dr. Nahed Yañez RBC 4.77 106/ul Normal 4.20-5.40 [facility] Comment on above: Performed By: #### C BC ####[facility] Takxtbajfb405[address] [place], [place] [address]Dr. Nahed Yañez WBC 15.3 103/ul Critically high 4.0-11.0 The [facility] Comment on above: Performed By: #### C BC ####[facility] Ujfbhpihgl8775 [place] [address]Dr. Nahed Yañez PROF CHEM 8 (BAS METB)on Anion gap [Moles/Vol] 13.4 mmol/L Normal [facility] Comment on above: Performed By: #### C NGHIA, BMP ####[facility] Clrswgquof11[address] [place] [address]Dr. Nahed Yañez Calcium [Mass/Vol] 9.5 mg/dL Normal 8.5-10.1 [facility] Comment on above: Performed By: #### C NGHIA, BMP ####[facility] Xijdavoxqs269[address] [place], [place] [address]Dr. Nahed Yañez Chloride [Moles/Vol] 101 mmol/L Normal 98-107 [facility] Comment on above: Performed By: #### Isabell AGRAWAL, BMP ####[facility] Luxekhehbp[address] [place], [place] [address]Dr. Nahed Yañez CO2 [Moles/Vol] 27.9 mmol/L Normal 21.0-32.0 [facility] Comment on above: Performed By: #### Isabell AGRAWAL, BMP ####[facility] Cebiyqimkv101[address] [place], [place] [address]Dr. Nahed Yañez Creatinine [Mass/Vol] 0.91 mg/dL Normal 0.55-1.02 [facility] Comment on above: Performed By: #### Isabell AGRAWAL, BMP ####[facility] Tbitphxiek3[address] [place] [address]Dr. Nahed Otilio EGFR-AF POLISH >60 Normal >=60 The [facility] Comment on above: Performed By: #### C NGHIA, BMP ####[facility] Clothyqnwk8748 [place] [address]Dr. Rosemarieashley Otilio EGFR-NON AF POLISH >60 Normal >=60 [facility] Comment on above: Performed By: #### Isabell AGRAWAL, BMP ####[facility] Mhmcqqxuut8747 [place] [address]Dr. Nahed Yañez Glucose [Mass/Vol] 100 mg/dL Normal 74-106 [facility] Comment on above: Performed By: #### C NGHIA, BMP ####[facility] Rfhitiiomy832[address] [place], [place] [address]Dr. Nahed Yañez Potassium [Moles/Vol] 4.3 mmol/L Normal 3.5-5.1 [facility] Comment on above: Result Comment: samp le slightly hemolized Performed By: #### C NGHIA, BMP ####[facility] Xqtwesjiqh0648[address] [place], [place] [address]Dr. Nahed Yañez Sodium [Moles/Vol] 138 mmol/L Normal 136-145 [facility] Comment on above: Performed By: #### C NGHIA, BMP ####[facility] Lboikuvjqr398[address] [place], [place] [address]Dr. Nahed Yañez Urea nitrogen [Mass/Vol] 34.0 mg/dL Critically high 7.0-18.0 [facility] Comment on above: Performed By: #### C NGHIA, BMP ####[facility] Btlzbfgvdz2198[address] [place], [place] [address]Dr. Nahed Yañez Urea nitrogen/Creatinine [Mass ratio] 37.4 mg/mg Normal [facility] Comment on above: Performed By: #### C NGHIA, BMP ####[facility] Uanijfszkj195[address] [place], [place] [address]Dr. Nahed Yañez BNPon 07-28-2022 Natriuretic peptide B (Bld) [Mass/Vol] 249.0 pg/mL Normal <=900.0 [facility] Comment on above: Performed By: #### B BALING PRESS OPERATOR ####[facility] Tlzyeguytp208[address] [place], [place] [address]Dr. Nahed Yañez CBC AUTO DIFFon 07-28-2022 BASO # 0.0 103/ul Normal 0.0-0.1 [facility] Comment on above: Performed By: #### C BC ####[facility] Uzydzcnfbs999[address] [place], [place] [address]Dr. Nahed Yañez Basophils/100 WBC (Bld) 0.1 % Critically low 0.2-2.0 [facility] Comment on above: Performed By: #### C BC ####[facility] Zgiexcwiur9545 [place] [address]Dr. Nahed Yañez EO # 0.0 103/ul Normal 0.0-0.7 [facility] Comment on above: Performed By: #### C BC ####[facility] Lqqaiutcbl5298[address] [place], [place] [address]Dr. Nahed Yañez Eosinophils/100 WBC (Bld) 0.0 % Critically low 0.9-7.0 [facility] Comment on above: Performed By: #### C BC ####[facility] Yuciuawzwj5298[address] [place], [place] [address]Dr. Nahed Yañez Erythrocyte distribution width (RBC) [Ratio] 14.3 % Normal 11.0-15.0 [facility] Comment on above: Performed By: #### C BC ####[facility] Eruvektlke7539[address] [place], [place] [address]Dr. Nahed Yañez Hematocrit (Bld) [Volume fraction] 38.7 % Normal 36.0-48.0 [facility] Comment on above: Performed By: #### C BC ####[facility] Ngmehskxvf0024[address] [place], [place] [address]Dr. Nahed Yañez Hemoglobin (Bld) [Mass/Vol] 12.2 g/dL Normal 12.0-16.0 [facility] Comment on above: Performed By: #### C BC ####[facility] Rtxoewovuf508[address] [place], [place] [address]Dr. Nahed Yañez IG # 0.06 10e3/ul Critically high 0.00-0.03 [facility] Comment on above: Performed By: #### C BC ####[facility] Wvukuauyrq8687[address] [place], [place] [address]Dr. Nahed Yañez IG % 0.5 % Normal 0.0-0.5 [facility] Comment on above: Performed By: #### C BC ####[facility] Cproykuahq7[address] [place], [place] [address]Dr. Rosemarieashley Yañez LYMPH # 0.7 103/ul Critically low 1.2-3.8 [facility] Comment on above: Performed By: #### C BC ####[facility] Kevejwcxdb9562 [place] [address]Dr. Nahed Otilio Lymphocytes/100 WBC (Bld) 5.7 % Critically low 20.5-60.0 [facility] Comment on above: Performed By: #### C BC ####[facility] Vchkyoptcq8478 [place] [address]Dr. Rosemarieashley Yañez MANUAL DIFF REQ NO Normal [facility] Comment on above: Performed By: #### C BC ####[facility] Witzzczztb1314 [place] [address]Dr. Nahed Otilio MCH (RBC) [Entitic mass] 28.2 pg Normal 26.7-34.0 [facility] Comment on above: Performed By: #### C BC ####[facility] Cuiqxfimox4[address] [place], [place] [address]Dr. Nahed Otilio MCHC (RBC) [Mass/Vol] 31.5 g/dL Normal 29.9-35.2 [facility] Comment on above: Performed By: #### C BC ####[facility] Unmaivlwfe3609 [place] [address]Dr. Nahed Yañez MCV (RBC) [Entitic vol] 89.6 fL Normal 81.0-99.0 [facility] Comment on above: Performed By: #### C BC ####[facility] Rpupidicwq7968[address] [place], [place] [address]Dr. Nahed Yañez MONO # 0.3 103/ul Normal 0.3-0.8 [facility] Comment on above: Performed By: #### C BC ####[facility] Nxycwayqxq8835[address] [place], [place] [address]Dr. Nahed Yañez Monocytes/100 WBC (Bld) 2.2 % Normal 1.7-12.0 [facility] Comment on above: Performed By: #### C BC ####[facility] Bjtzwsfmqc387[address] [place], [place] [address]Dr. Nahed Yañez NEUT # 11.1 103/ul Critically high 1.4-6.5 The [facility] Comment on above: Performed By: #### C BC ####[facility] Grpuaablof9309 [place] [address]Dr. Nahed Yañez Neutrophils/100 WBC (Bld) 91.5 % Critically high 43.0-75.0 [facility] Comment on above: Performed By: #### C BC ####[facility] Oppiwvmqjq2218 [place] [address]Dr. Nahed Yañez Platelet mean volume (Bld) [Entitic vol] 10.1 fL Normal 9.5-13.5 [facility] Comment on above: Performed By: #### C BC ####[facility] Jiygulffaf8123 [place] [address]Dr. Nahed Yañez PLT 323 103/ul Normal 150-450 [facility] Comment on above: Performed By: #### C BC ####[facility] Eycorqilwh3277 [place] [address]Dr. Nahed Yañez RBC 4.32 106/ul Normal 4.20-5.40 [facility] Comment on above: Performed By: #### C BC ####[facility] Jstskojefg5143 [place] [address]Dr. Nahed Yañez WBC 12.1 103/ul Critically high 4.0-11.0 [facility] Comment on above: Performed By: #### C BC ####[facility] Mesbzdvqwh6065 [place] [address]Dr. Nahed Yañez POINT OF CARE GLUCOSEon 03- Glucose [Mass/Vol] 308 mg/dL Critically high 74-106 [facility] Comment on above: Performed By: #### P OCGLUC ####[facility] Hgljcbcood72[address] [place], [place] [address]Dr. Nahed Yañez Glucose [Mass/Vol] 341 mg/dL Critically high 74-106 [facility] Comment on above: Performed By: #### P OCGLUC ####[facility] Yqyryatied198[address] [place], [place] [address]Dr. Nahed Yañez Glucose [Mass/Vol] 320 mg/dL Critically high 74-106 [facility] Comment on above: Performed By: #### P OCGLUC ####[facility] Hbgctwlfua8648 [place] [address]Dr. Nahed Yañez PROF 14(COMP METB)on 023 Albumin [Mass/Vol] 3.0 g/dL Critically low 3.4-5.0 [facility] Comment on above: Performed By: #### C MP ####[facility] Yjkgtqoara8616 [place] [address]Dr. Nahed Yañez Albumin/Globulin [Mass ratio] 0.7 {ratio} Normal [facility] Comment on above: Performed By: #### C MP ####[facility] Lxzinkkjql673[address] [place], [place] [address]Dr. Nahed Yañez ALP [Catalytic activity/Vol] 93 U/L Normal 46-116 [facility] Comment on above: Performed By: #### C MP ####[facility] Tbtckthufc056[address] [place], [place] [address]Dr. Nahed Otilio ALT [Catalytic activity/Vol] 15 U/L Normal 14-59 [facility] Comment on above: Performed By: #### C MP ####[facility] Rcffoxklwo120[address] [place], [place] [address]Dr. Nahed Otilio Anion gap [Moles/Vol] 13.0 mmol/L Normal [facility] Comment on above: Performed By: #### C MP ####[facility] Shheiyizdk0289[address] [place], [place] [address]Dr. Nahed Otilio AST [Catalytic activity/Vol] 11 U/L Critically low 15-37 [facility] Comment on above: Performed By: #### C MP ####[facility] Uzzarwgxjf748[address] [place], [place] [address]Dr. Nahed Yañez Bilirubin [Mass/Vol] 0.2 mg/dL Normal 0.2-1.0 [facility] Comment on above: Performed By: #### C MP ####[facility] Haycwgcglv6764 [place] [address]Dr. Nahed Yañez Calcium [Mass/Vol] 9.6 mg/dL Normal 8.5-10.1 [facility] Comment on above: Performed By: #### C MP ####[facility] Kztjfqlppb8040 [place] [address]Dr. Nahed Yañez Chloride [Moles/Vol] 100 mmol/L Normal 98-107 [facility] Comment on above: Performed By: #### C MP ####[facility] Jpimrrcmlz5585 [place] [address]Dr. Nahed Yañez CO2 [Moles/Vol] 27.3 mmol/L Normal 21.0-32.0 [facility] Comment on above: Performed By: #### C MP ####[facility] Fyzcoopeym3223[address] [place], [place] [address]Dr. Nahed Yañez Creatinine [Mass/Vol] 1.19 mg/dL Critically high 0.55-1.02 [facility] Comment on above: Performed By: #### C MP ####[facility] Roumlcsuns856[address] [place], [place] [address]Dr. Nahed Yañez EGFR-AF POLISH 56 mL/min/1.73m2 Critically low >=60 [facility] Comment on above: Performed By: #### C MP ####[facility] Nfrghcpgku4975[address] [place], [place] [address]Dr. Nahed Yañez EGFR-NON AF POLISH 46 mL/min/1.73m2 Critically low >=60 [facility] Comment on above: Performed By: #### C MP ####[facility] Adwcdzzmjb336[address] [place], [place] [address]Dr. Nahed Otilio Globulin (S) [Mass/Vol] 4.1 g/dL Normal [facility] Comment on above: Performed By: #### C MP ####[facility] Xgynkrjqtn6812[address] [place], [place] [address]Dr. Nahed Otilio Glucose [Mass/Vol] 244 mg/dL Critically high 74-106 [facility] Comment on above: Performed By: #### C MP ####[facility] Camqqynesw3[address] [place], [place] [address]Dr. Nahed Yañez Potassium [Moles/Vol] 4.3 mmol/L Normal 3.5-5.1 [facility] Comment on above: Performed By: #### C MP ####[facility] Wxparjrjqp509[address] [place], [place] [address]Dr. Nahed Yañez Protein [Mass/Vol] 7.1 g/dL Normal 6.4-8.2 [facility] Comment on above: Performed By: #### C MP ####[facility] Qlsqqaorul8232[address] [place], [place] [address]Dr. Nahed Otilio Sodium [Moles/Vol] 136 mmol/L Normal 136-145 [facility] Comment on above: Performed By: #### C MP ####[facility] Kpxpemdxih249[address] [place], [place] [address]Dr. Naehd Yañez Urea nitrogen [Mass/Vol] 19.0 mg/dL Critically high 7.0-18.0 [facility] Comment on above: Performed By: #### C MP ####[facility] Azukqehhkr968144 [address] [place], [place] [address]Dr. Nahed Yañez Urea nitrogen/Creatinine [Mass ratio] 16.0 mg/mg Normal [facility] Comment on above: Performed By: #### C MP ####[facility] Qtuhlbtvhl100[address] [place], [place] [address]Dr. Nahed Otilio BNPon 07-27-2022 Natriuretic peptide B (Bld) [Mass/Vol] 1093.0 pg/mL Critically high <=900.0 [facility] Comment on above: Performed By: #### B BALING PRESS OPERATOR ####[facility] Wceqggesap7235[address] [place], [place] [address]Dr. Rosemarieashley Otilio CBC AUTO DIFFon 07-27-2022 BASO # 0.1 103/ul Normal 0.0-0.1 [facility] Comment on above: Performed By: #### C BC ####[facility] Kwmuboubpj3689[address] [place], [place] [address]Dr. Nahed Yañez Basophils/100 WBC (Bld) 0.3 % Normal 0.2-2.0 [facility] Comment on above: Performed By: #### C BC ####[facility] Bgiyoptxkn1214 [place] [id number]. Nahed Yañez EO # 0.2 103/ul Normal 0.0-0.7 [facility] Comment on above: Performed By: #### C BC ####[facility] Hxhauvlvja4069 [place] [id number]. Nahed Yañez Eosinophils/100 WBC (Bld) 1.2 % Normal 0.9-7.0 [facility] Comment on above: Performed By: #### C BC ####[facility] Gehernmyro448[address] [place], [place] [address]Dr. Nahed Yañez Erythrocyte distribution width (RBC) [Ratio] 14.1 % Normal 11.0-15.0 [facility] Comment on above: Performed By: #### C BC ####[facility] Cvluczjmjc9820[address] [place], [place] [address]Dr. Nahed Yañez Hematocrit (Bld) [Volume fraction] 42.2 % Normal 36.0-48.0 [facility] Comment on above: Performed By: #### C BC ####[facility] Yjjcpilsox029[address] [place], [place] [address]Dr. Nahed Yañez Hemoglobin (Bld) [Mass/Vol] 13.6 g/dL Normal 12.0-16.0 [facility] Comment on above: Performed By: #### C BC ####[facility] Hdutvnqzst364[address] [place], [place] [address]Dr. Nahed Yañez IG # 0.09 10e3/ul Critically high 0.00-0.03 [facility] Comment on above: Performed By: #### C BC ####[facility] Nnksbtaiik4590[address] [place], [place] [address]Dr. Nahed Yañez IG % 0.5 % Normal 0.0-0.5 [facility] Comment on above: Performed By: #### C BC ####[facility] Neqjrhjjov[address] [place], [place] [address]Dr. Rosemarieashley Yañez LYMPH # 1.8 103/ul Normal 1.2-3.8 [facility] Comment on above: Performed By: #### C BC ####[facility] Fowfnhzinm9689 [place] [id number]. Nahed Otilio Lymphocytes/100 WBC (Bld) 10.2 % Critically low 20.5-60.0 [facility] Comment on above: Performed By: #### C BC ####[facility] Rlyavhceis3826 [place] [id number]. Nahed Yañez MANUAL DIFF REQ NO Normal [facility] Comment on above: Performed By: #### C BC ####[facility] Dxneatzmqw0608 [place] [id number]. Nahed Yañez MCH (RBC) [Entitic mass] 28.3 pg Normal 26.7-34.0 [facility] Comment on above: Performed By: #### C BC ####[facility] Mktoechodo7678 [place] [address]Dr. Nahed Yañez MCHC (RBC) [Mass/Vol] 32.2 g/dL Normal 29.9-35.2 [facility] Comment on above: Performed By: #### C BC ####[facility] Kujugynlpf2793 [place] [id number]. Nahed Yañez MCV (RBC) [Entitic vol] 87.9 fL Normal 81.0-99.0 [facility] Comment on above: Performed By: #### C BC ####[facility] Lzatalfckt8911 [place] [id number]. Nahed Yañez MONO # 0.9 103/ul Critically high 0.3-0.8 [facility] Comment on above: Performed By: #### C BC ####[facility] Qkaxctseuc1681 [place] [id number]. Nahed Yañez Monocytes/100 WBC (Bld) 5.2 % Normal 1.7-12.0 [facility] Comment on above: Performed By: #### C BC ####[facility] Twcdqqorgf1589 [place] [id number]. Nahed Yañez NEUT # 14.4 103/ul Critically high 1.4-6.5 [facility] Comment on above: Performed By: #### C BC ####[facility] Fesxkemkgi5636 [place], [place] [address]Jw. Nahed Yañez Neutrophils/100 WBC (Bld) 82.6 % Critically high 43.0-75.0 [facility] Comment on above: Performed By: #### C BC ####[facility] Zvljbebktb5280 [place], [place] [address]Yk. Nahed Yañez Platelet mean volume (Bld) [Entitic vol] 10.1 fL Normal 9.5-13.5 [facility] Comment on above: Performed By: #### C BC ####[facility] Sxtapxwdjr5133 [place] [id number]. Nahed Yañez PLT 336 103/ul Normal 150-450 [facility] Comment on above: Performed By: #### C BC ####[facility] Ttleplmnfm3759 [place] [id number]. Nahed Yañez RBC 4.80 106/ul Normal 4.20-5.40 [facility] Comment on above: Performed By: #### C BC ####[facility] Jzdobcqqzu3601 [place], [place] [address]Kp. Nahed Yañez WBC 17.4 103/ul Critically high 4.0-11.0 [facility] Comment on above: Performed By: #### C BC ####[facility] Bnisougwsx0913 [place] [id number]. Nahde Yañez CTA CHEST WO W CONon 023 CTA CHEST WO W CON Normal [facility] 07-12 SARS-CoV-2 (COVID-19) RNA MIRNA+probe Ql (Unsp spec) Not detected Normal NOT DETECTED [facility] Comment on above: Result Comment: When diagnostic [...] for this test is supported by the [place] of [employer] and Human Service's declaration that [...] be used). Performed By: #### C VDTB ####[facility] Qmkchkozxm[address] [place], [place] [address]Dr. Nahed Yañez ECHOCARDIO M/2D COMPLETEon 0 07-27-2022 ECHOCARDIO M/2D COMPLETE Normal [facility] ER URINE PROFILEon 3 Bilirubin Ql (U) Negative Normal NEGATIVE [facility] Comment on above: Performed By: #### U MICRO, ERUR ####[facility] Sbqaiqoixk[address] [place], [place] [address]Dr. Nahed Yañez Clarity (U) CLEAR Normal CLEAR [facility] Comment on above: Performed By: #### U MICRO, ERUR ####[facility] M[address]rsogmztu[address] [place], [place] [address]Dr. Nahed Yañez Color (U) LT. YELLOW Normal YELLOW [facility] Comment on above: Performed By: #### U MICRO, ERUR ####[facility] Afykbpaxnw4[address] [place], [place] [address]Dr. Nahed AGEED A micrscopic examination will be performed if indicated. Normal [facility] Comment on above: Performed By: #### U MICRO, ERUR ####[facility] Gdplfdipoa[address] [place], [place] [address]Dr. Nahed Yañez Glucose Ql (U) >1000 Abnormal NEGATIVE The [facility] Comment on above: Performed By: #### U MICRO, ERUR ####[facility] Imksztvqxh28[address] [place], [place] [address]Dr. Nahed Yañez Hemoglobin Ql (U) TRACE-LYSED Abnormal NEGATIVE [facility] Comment on above: Performed By: #### U MICRO, ERUR ####[facility] Yydirzbopp28[address] [place] [address]Dr. Nahed Yañez Ketones Ql (U) TRACE Abnormal NEGATIVE The [facility] Comment on above: Performed By: #### U MICRO, ERUR ####[facility] Knlqefxyeq8022 [place] [address]Dr. Nahed Yañez LEUKOCYTES Negative Normal NEGATIVE The [facility] Comment on above: Performed By: #### U MICRO, ERUR ####[facility] Bcdoxpzwjz3533 [place] [address]Dr. Nahed Yañez Nitrite Ql (U) Negative Normal NEGATIVE The [facility] Comment on above: Performed By: #### U MICRO, ERUR ####[facility] Uhrzzuifmq[address] [place], [place] [address]Dr. Nahed Yañez pH (U) 7.0 [pH] Normal 5-9 [facility] Comment on above: Performed By: #### U MICRO, ERUR ####[facility] Zvzdyaupar[address] [place], [place] [address]Dr. Nahed Yañez SPEC GRAVITY 1.020 Normal 1.005-<=1.02 5 The [facility] Comment on above: Performed By: #### U MICRO, ERUR ####[facility] Mzygpnfbgh[address] [place], [place] [address]Dr. Nahed Yañez UA PROTEIN Negative Normal NEGATIVE/ TRACE The [facility] Comment on above: Performed By: #### U MICRO, ERUR ####[facility] Iwxg[address]pewfs[address] [place], [place] [address]Dr. Nahed Yañez UR MICRO IND INDICATED Normal The [facility] Comment on above: Performed By: #### U MICRO, ERUR ####[facility] Wgyhgkbrya[address] [place], [place] [address]Dr. Nahed Yañez Urobilinogen Qn (U) 0.2 {Alem'U}/dL Normal 0.2 - 1. 0 [facility] Comment on above: Performed By: #### U MICRO, ERUR ####[facility] Rikhptcyth[address] [place], [place] [address]Dr. Nahed Yañez LIPID PROFILEon 07-27-2022 CHOL-HDL RATIO NORM SEE BELOW Normal [facility] Comment on above: Result Comment: 3.3 - 4.4 LOW RISK 4.4 - 7.1 AVERAGE RISK 7.1 - 11.0 MODERATE RISK >11.0 HIGH RISK Performed By: #### M G, LIPID ####[facility] Lgssttqikr[address] [place], [place] [address]Sq. Nahed Yañez Cholesterol [Mass/Vol] 181 mg/dL Normal <=200 Th [facility] Comment on above: Performed By: #### M G, LIPID ####[facility] Fcggjhsirt1656 [place], [place] [address]Sg. Nahed Otilio Cholesterol in HDL [Mass/Vol] 87 mg/dL Critically high 40-60 [facility] Comment on above: Performed By: #### Pablo Moore, LIPID ####[facility] Fnsgofqyip9235 [place] [id number]. Rosemarieashley Otilio Cholesterol in LDL [Mass/Vol] 78.6 mg/dL Normal [facility] Comment on above: Performed By: #### M Teresa, LIPID ####[facility] Wdnqilcouw3133 [place], [place] [address]Lc. Nahed Otilio Cholesterol.total/Chol esterol in HDL [Mass ratio] 2.1 {ratio} Normal [facility] Comment on above: Performed By: #### Pablo Moore, LIPID ####[facility] Wuiakqvdsm72[address] [place] [id number]. Rosemarieashley Otilio HDL NORMAL > or = 60 mg/dl - LO W CARDIOVASCULAR RISK <40 mg/dl - HIGH CARDIOVASCULAR RISK Normal [facility] Comment on above: Performed By: #### M G, LIPID ####[facility] Sjiveaccds7488 [place] [id number]. Nahed Otilio LDL CALC NORMAL SEE BELOW Normal [facility] Comment on above: Result Comment: <100 mg/dl OPTIMAL 100 - 129 mg/dl NEAR OR ABOVE OPTIMAL 130 - 159 mg/dl BORDERLINE HIGH 160 - 189 mg/dl HIGH >190 mg/dl VERY HIGH Performed By: #### M G, LIPID ####[facility] Aftggcscqx1794 [place] [id number]. Nahed Yañez Triglyceride [Mass/Vol] 77 mg/dL Normal <=150 [facility] Comment on above: Performed By: #### M G, LIPID ####[facility] Hjclfekoni8081 [place] [id number]. Nahed Yañez VLDL CALC 15.4 mg/dL Normal [facility] Comment on above: Performed By: #### M G, LIPID ####[facility] Snqmbzsuzz0223 [place] [id number]. Nahed Yañez MAGNESIUMon 07-27-2022 Magnesium [Mass/Vol] 1.7 mg/dL Critically low 1.8-2.4 [facility] Comment on above: Performed By: #### M Teresa, LIPID ####[facility] Dvmcayfvss4109 [place] [address]Dr. Nahed Yañez POINT OF CARE GLUCOSEon 07-12 Glucose [Mass/Vol] 276 mg/dL Critically high -106 [facility] Comment on above: Performed By: #### P OCGLUC ####[facility] Vuhsscvfxu6731 [place] [address]Dr. Nahed Yañez Glucose [Mass/Vol] 143 mg/dL Critically high -106 [facility] Comment on above: Performed By: #### P OCGLUC ####[facility] Eoqrllwzuq4197 [place] [address]Dr. Nahed Yañez Glucose [Mass/Vol] 117 mg/dL Critically high -106 [facility] Comment on above: Performed By: #### P OCGLUC ####[facility] Zutkbrqmuc5868 [place] [address]Dr. Rosemarieashley Yañez PROF CHEM 8 (BAS METB)on Anion gap [Moles/Vol] 11.1 mmol/L Normal [facility] Comment on above: Performed By: #### B MP, HSTROPN ####[facility] Ktrqhqofsu3512 [place] [address]Dr. Nahed Yañez Calcium [Mass/Vol] 9.6 mg/dL Normal 8.5-10.1 [facility] Comment on above: Performed By: #### B RENZO, HSTROPN ####[facility] Gouwionzin6276 [place] [address]Dr. Nahed Yañez Chloride [Moles/Vol] 99 mmol/L Normal 98-107 [facility] Comment on above: Performed By: #### B RENZO, HSTROPN ####[facility] Epcpwwnsbu3652 [place] [address]Dr. Nahed Yañez CO2 [Moles/Vol] 27.8 mmol/L Normal 21.0-32.0 The [facility] Comment on above: Performed By: #### B RENZO, HSTROPN ####[facility] Bpgcgduohg[address] [place], [place] [address]Dr. Nahed Yañez Creatinine [Mass/Vol] 0.90 mg/dL Normal 0.55-1.02 [facility] Comment on above: Performed By: #### Mery MULLER, HSTROPN ####[facility] Oipsgtirzh[address] [place], [place] [address]Dr. Nahed Yañez EGFR-AF POLISH >60 Normal >=60 The [facility] Comment on above: Performed By: #### Mery MULLER, HSTROPN ####[facility] Qhzxsapkl[address] [place], [place] [address]Dr. Nahed Yañez EGFR-NON AF POLISH >60 Normal >=60 [facility] Comment on above: Performed By: #### Mery MULLER, HSTROPN ####[facility] Wivbahreub7278 [place] [address]Dr. Nahed Yañez Glucose [Mass/Vol] 133 mg/dL Critically high 74-106 [facility] Comment on above: Performed By: #### B RENZO, HSTROPN ####[facility] Mtvepiafry[address] [place], [place] [address]Dr. Nahed Yañez Potassium [Moles/Vol] 3.9 mmol/L Normal 3.5-5.1 The [facility] Comment on above: Performed By: #### Mery MULLER, HSTROPN ####[facility] Zjyznonbqm[address] [place], [place] [address]Dr. Nahed Yañez Sodium [Moles/Vol] 134 mmol/L Critically low 136-145 Th e [facility] Comment on above: Performed By: #### B MP, HSTROPN ####[facility] Zvfzcgyvrr8053 [place] [address]Dr. Nahed Yañez Urea nitrogen [Mass/Vol] 9.0 mg/dL Normal 7.0-18.0 [facility] Comment on above: Performed By: #### B MP, HSTROPN ####[facility] Pxnwbmmpyo3323 [place] [address]Dr. Rosemarieashley Yañez Urea nitrogen/Creatinine [Mass ratio] 10.0 mg/mg Normal The [facility] Comment on above: Performed By: #### B MP, HSTROPN ####[facility] Pzjifigbwx4488 [place] [address]Dr. Nahed Otilio TROPONIN, HIGH SENSITIVITYon 07-27-2022 HSTROP 40.7 pg/mL Normal 4.0-51.3 [facility] Comment on above: Result Comment: CUT- OFF POINTS HAVE BEEN ESTABLISHED BASED ON THE FOURTH UNIVERSAL DEFINITIONS OF MYOCARDIALINFARCTION. THE UPPER REFERENCE LIMIT (URL) OF TROPONIN, DEFINED THE 99TH PERCENTILE OFcTnI DISTRIBUTION IN A REFERENCE POPULATION, HAS BEEN CONFIRMED THE DECISION THRESHOLDFOR OR DIAGNOSIS. Performed By: #### H STROPN ####[facility] Zrjebsynnq5457 [place] [address]Dr. Nahed Yañez HSTROP 42.5 pg/mL Normal 4.0-51.3 [facility] Comment on above: Result Comment: CUT- OFF POINTS HAVE BEEN ESTABLISHED BASED ON THE FOURTH UNIVERSAL DEFINITIONS OF MYOCARDIALINFARCTION. THE UPPER REFERENCE LIMIT (URL) OF TROPONIN, DEFINED THE 99TH PERCENTILE OFcTnI DISTRIBUTION IN A REFERENCE POPULATION, HAS BEEN CONFIRMED THE DECISION THRESHOLDFOR OR DIAGNOSIS. Performed By: #### H STROPN ####[facility] Coslzvteds35[address] [place] [address]Dr. Nahed Yañez HSTROP 50.8 pg/mL Normal 4.0-51.3 The [facility] Comment on above: Result Comment: CUT- OFF POINTS HAVE BEEN ESTABLISHED BASED ON THE FOURTH UNIVERSAL DEFINITIONS OF MYOCARDIALINFARCTION. THE UPPER REFERENCE LIMIT (URL) OF TROPONIN, DEFINED THE 99TH PERCENTILE OFcTnI DISTRIBUTION IN A REFERENCE POPULATION, HAS BEEN CONFIRMED THE DECISION THRESHOLDFOR OR DIAGNOSIS. Performed By: #### H STROPN ####[facility] Lkkmjmfjml7299 [place] [id number]. Nahed Yañez HSTROP 46.3 pg/mL Normal 4.0-51.3 [facility] Comment on above: Result Comment: CUT- OFF POINTS HAVE BEEN ESTABLISHED BASED ON THE FOURTH UNIVERSAL DEFINITIONS OF MYOCARDIALINFARCTION. THE UPPER REFERENCE LIMIT (URL) OF TROPONIN, DEFINED THE 99TH PERCENTILE OFcTnI DISTRIBUTION IN A REFERENCE POPULATION, HAS BEEN CONFIRMED THE DECISION THRESHOLDFOR OR DIAGNOSIS. Performed By: #### H STROBINH, TSH ####[facility] Czfeqgzwvh7822 [place] [address]Dr. Nahed Yañez HSTROP 54.2 pg/mL Critically high 4.0-51.3 The [facility] Comment on above: Result Comment: CUT- OFF POINTS HAVE BEEN ESTABLISHED BASED ON THE [facility] UNIVERSAL DEFINITIONS OF MYOCARDIALINFARCTION. THE UPPER REFERENCE LIMIT (URL) OF TROPONIN, DEFINED THE 99TH PERCENTILE OFcTnI DISTRIBUTION IN A REFERENCE POPULATION, HAS BEEN CONFIRMED THE DECISION THRESHOLDFOR OR DIAGNOSIS. Performed By: #### B MP, HSTROPN ####[facility] Hdizgowgyl4131 [place] [id number]. Nahed Yañez TSHon 07-27-2022 TSH 1.566 uIU/mL Normal 0.358-3.740 The [facility] Comment on above: Performed By: #### H STROPN, TSH ####[facility] Mrsllpjsqc3138 [place] [id number]. Nahed Yañez URINE MICROSCOPIC ONLYon BACTERIA NONE SEEN Normal NONE SEEN The [facility] Comment on above: Performed By: #### U MICRO, ERUR ####[facility] Oamjtzuehq7019 [place] [id number]. Nahed Yañez Bacteria identified Cx Nom (U) NOT INDICATED Normal The [facility] Comment on above: Performed By: #### U MICRO, ERUR ####[facility] Aebfqgmoal9556 [place] [address]Dr. Nahed Yañez CAST NONE SEEN Normal NONE SEEN The [facility] Comment on above: Performed By: #### U MICRO, ERUR ####[facility] Ecxrfybrme9774 [place] [address]Dr. Nahed Yañez Crystals LM Nom (Urine sed) NONE SEEN Normal NONE SEEN The [facility] Comment on above: Performed By: #### U MICRO, ERUR ####[facility] Vkmhovfpic6649 [place] [address]Dr. Nahed Yañez Epithelial cells LM Ql (Urine sed) FEW Abnormal NONE SEEN /RARE The [facility] Comment on above: Performed By: #### U MICRO, ERUR ####[facility] Mtpkfwiduy2277 [place] [address]Dr. Nahed Yañez MUCOUS NONE SEEN Normal NONE SEEN The [facility] Comment on above: Performed By: #### U MICRO, ERUR ####[facility] Vbfwwgwdpb[address] [place], [place] [address]Dr. Nahed Yañez RBC 0-2 Normal 0-2 The [facility] Comment on above: Performed By: #### U MICRO, ERUR ####[facility] Ebxhiiwagy9[address] [place], [place] [address]Dr. Nahed Yañez WBC NONE SEEN Normal NONE SEEN The [facility] Comment on above: Performed By: #### U MICRO, ERUR ####[facility] Uwjrhrkaav83[address] [place], [place] [address]Dr. Nahed Yañez XR CHEST 1 Von 07-27-2022 XR CHEST 1 V Normal The [facility] INSULINon 05-09-2022 Insulin 21.1 uIU/mL Normal 2.6-24.9 The [facility] Comment on above: Performed By: #### I NSULIN ####[facility] Lifvmsqmvw0232[address] [place], [place] [address]Dr. Nahed Yañez BNPon 05-08-2022 Natriuretic peptide B (Bld) [Mass/Vol] 58.0 pg/mL Normal <=900.0 The [facility] Comment on above: Performed By: #### B BALING PRESS OPERATOR, LIPID, T7, TSH, CMP ####[facility] Nvatgueths2573 [place] [id number]. Nahed Yañez CBC AUTO DIFFon 05-08-2022 BASO # 0.0 103/ul Normal 0.0-0.1 [facility] Comment on above: Performed By: #### C BC ####[facility] Qgeaxzyirr6902 [place] [id number]. Nahed Yañez Basophils/100 WBC (Bld) 0.4 % Normal 0.2-2.0 The [facility] Comment on above: Performed By: #### C BC ####[facility] Cecbfyerha1816[address] [place], [place] [address]Dr. Nahed Yañez EO # 0.3 103/ul Normal 0.0-0.7 The [facility] Comment on above: Performed By: #### C BC ####[facility] Yrnukrrban64[address] [place], [place] [address]Dr. Nahed Yañez Eosinophils/100 WBC (Bld) 4.2 % Normal 0.9-7.0 The [facility] Comment on above: Performed By: #### C BC ####[facility] Ekvmatwhdm[address] [place], [place] [address]Dr. Nahed Yañez Erythrocyte distribution width (RBC) [Ratio] 14.0 % Normal 11.0-15.0 The [facility] Comment on above: Performed By: #### C BC ####[facility] Zfwxshhkws24[address] [place], [place] [address]Dr. Nahed Yañez Hematocrit (Bld) [Volume fraction] 43.8 % Normal 36.0-48.0 The [facility] Comment on above: Performed By: #### C BC ####[facility] Xgpzjjgsqg67[address] [place], [place] [address]Dr. Nahed Yañez Hemoglobin (Bld) [Mass/Vol] 13.9 g/dL Normal 12.0-16.0 The [facility] Comment on above: Performed By: #### C BC ####[facility] Olreafdvbr62[address] [place], [place] [address]Dr. Nahed Yañez IG # 0.01 10e3/ul Normal 0.00-0.03 [facility] Comment on above: Performed By: #### C BC ####[facility] Olxetljizw1085 [place] [address]DrShaun Rosemarieashley Yaeñz IG % 0.1 % Normal 0.0-0.5 [facility] Comment on above: Performed By: #### C BC ####[facility] Ijpnorgxuj9838 [place] [id number] Rosemarieashley Yañez LYMPH # 2.8 103/ul Normal 1.2-3.8 [facility] Comment on above: Performed By: #### C BC ####[facility] Txdmcwavxy8458 [place] [address]DrShaun Rosemarieashley Yañez Lymphocytes/100 WBC (Bld) 37.6 % Normal 20.5-60.0 [facility] Comment on above: Performed By: #### C BC ####[facility] Glfnmicwkb23[address] [place], [place] [address]DrShaun Yañez MANUAL DIFF REQ NO Normal [facility] Comment on above: Performed By: #### C BC ####[facility] Zvzibmfccm3624 [place] [id number]. Nahed Otilio MCH (RBC) [Entitic mass] 28.4 pg Normal 26.7-34.0 [facility] Comment on above: Performed By: #### C BC ####[facility] Vxnzwmsehl[address] [place], [place] [id number] Nahed Otilio MCHC (RBC) [Mass/Vol] 31.7 g/dL Normal 29.9-35.2 [facility] Comment on above: Performed By: #### C BC ####[facility] Hgcuwwbmjn[address] [place], [place] [address]DrShaun Rosemarieashley Yañez MCV (RBC) [Entitic vol] 89.6 fL Normal 81.0-99.0 [facility] Comment on above: Performed By: #### C BC ####[facility] Mqndbypafl6779 [place] [id number] Yañez MONO # 0.5 103/ul Normal 0.3-0.8 The [facility] Comment on above: Performed By: #### C BC ####[facility] Xmddcabnnz6893 [place] [id number]. Nahed Yañez Monocytes/100 WBC (Bld) 6.8 % Normal 1.7-12.0 The [facility] Comment on above: Performed By: #### C BC ####[facility] Rskdyhsxpm0314 [place] [id number]. Nahed Yañez NEUT # 3.7 103/ul Normal 1.4-6.5 [facility] Comment on above: Performed By: #### C BC ####[facility] Mupqovsydy0250 [place] [id number]. Nahed Yañez Neutrophils/100 WBC (Bld) 50.9 % Normal 43.0-75.0 The [facility] Comment on above: Performed By: #### C BC ####[facility] Usutrxuwxe1110 [place] [address]Dr. Nahed Yañez Platelet mean volume (Bld) [Entitic vol] 9.8 fL Normal 9.5-13.5 [facility] Comment on above: Performed By: #### C BC ####[facility] Qpjntloyro2580 [place] [id number]. Nahed Yañez PLT 306 103/ul Normal 150-450 [facility] Comment on above: Performed By: #### C BC ####[facility] Gdjznladdj5137 [place] [id number]. Nahed Yañez RBC 4.89 106/ul Normal 4.20-5.40 [facility] Comment on above: Performed By: #### C BC ####[facility] Drdqwnhexl1940 [place] [id number]. Nahed Yañez WBC 7.3 103/ul Normal 4.0-11.0 The [facility] Comment on above: Performed By: #### C BC ####[facility] Eksjlhtotu2199 [place] [id number]. Nahed Yañez FREE THYROXINE INDEX T7on FTI 2.92 Normal 1.30-4.50 The [facility] Comment on above: Performed By: #### B BALING PRESS OPERATOR, LIPID, T7, TSH, CMP ####[facility] Jejmlhjvre0710 [place] [id number]. Nahed Yañez T3U 34.0 % Normal 30.0-39.0 [facility] Comment on above: Performed By: #### B BALING PRESS OPERATOR, LIPID, T7, TSH, CMP ####[facility] Xnhcygbhkh5571 [place] [id number]. Nahed Yañez T4 [Mass/Vol] 8.60 ug/dL Normal 4.80-13.90 [facility] Comment on above: Performed By: #### B BALING PRESS OPERATOR, LIPID, T7, TSH, CMP ####[facility] Xsesguinme6285 [place] [address]Dr. Nahed Yañez GLYCOHEMOGLOBIN A1Con 2021 ADA RECOMMENDATION SEE BELOW Normal [facility] Comment on above: Result Comment: ADA RECOMMENDED LIMIT 4.0 - 6.0 ADA THERAPEUTIC TARGET < 7.0 ACTION SUGGESTED > 7.0 Performed By: #### A 1C ####[facility] Kmntzzllvm4137 [place] [address]Dr. Nahed Yañez Glucose [Mass/Vol] 146 mg/dL Normal [facility] Comment on above: Performed By: #### A 1C ####[facility] Raztlaiptf9881 [place] [address]Dr. Nahed Yañez HbA1c (Bld) [Mass fraction] 6.7 % Critically high 4.5-6.2 [facility] Comment on above: Performed By: #### A 1C ####[facility] Ghzexjchtb6842 [place] [id number]. Nahed Yañez IRONon 05-08-2022 Iron [Mass/Vol] 76.0 ug/dL Normal 50.0-170.0 [facility] Comment on above: Performed By: #### V ITAD, IRON ####[facility] Eyosqgjlzk2143 [place] [id number]. Nahed Yañez LIPID PROFILEon 05-08-2022 CHOL-HDL RATIO NORM SEE BELOW Normal [facility] Comment on above: Result Comment: 3.3 - 4.4 LOW RISK 4.4 - 7.1 AVERAGE RISK 7.1 - 11.0 MODERATE RISK >11.0 HIGH RISK Performed By: #### B BALING PRESS OPERATOR, LIPID, T7, TSH, CMP ####[facility] Khbeflsqqt2194 [place] [address]Dr. Nahed Yañez Cholesterol [Mass/Vol] 167 mg/dL Normal <=200 Th [facility] Comment on above: Performed By: #### B BALING PRESS OPERATOR, LIPID, T7, TSH, CMP ####[facility] Baszgxsotr[address] [place], [place] [address]Dr. Nahed Yañez Cholesterol in HDL [Mass/Vol] 63 mg/dL Critically high 40-60 [facility] Comment on above: Performed By: #### B BALING PRESS OPERATOR, LIPID, T7, TSH, CMP ####[facility] Windtktqng[address] [place], [place] [address]Dr. Nahed Yañez Cholesterol in LDL [Mass/Vol] 72.6 mg/dL Normal [facility] Comment on above: Performed By: #### B BALING PRESS OPERATOR, LIPID, T7, TSH, CMP ####[facility] Rrhzpyisji[address] [place], [place] [address]Dr. Nahed Yañez Cholesterol.total/Chol esterol in HDL [Mass ratio] 2.7 {ratio} Normal [facility] Comment on above: Performed By: #### B BALING PRESS OPERATOR, LIPID, T7, TSH, CMP ####[facility] Cwbhhzccei[address] [place], [place] [address]Dr. Rosemarieashley Yañez HDL NORMAL > or = 60 mg/dl - LO W CARDIOVASCULAR RISK <40 mg/dl - HIGH CARDIOVASCULAR RISK Normal [facility] Comment on above: Performed By: #### B BALING PRESS OPERATOR, LIPID, T7, TSH, CMP ####[facility] Akfpmxnvxs[address] [place], [place] [address]Dr. Rosemarieashley Yañez LDL CALC NORMAL SEE BELOW Normal [facility] Comment on above: Result Comment: <100 mg/dl OPTIMAL 100 - 129 mg/dl NEAR OR ABOVE OPTIMAL 130 - 159 mg/dl BORDERLINE HIGH 160 - 189 mg/dl HIGH >190 mg/dl VERY HIGH Performed By: #### B BALING PRESS OPERATOR, LIPID, T7, TSH, CMP ####[facility] Enqfmfnakp3992 [place] [id number]. Nahed Yañez Triglyceride [Mass/Vol] 157 mg/dL Critically high <=150 [facility] Comment on above: Performed By: #### B BALING PRESS OPERATOR, LIPID, T7, TSH, CMP ####[facility] Twcoumpqae3369 [place] [address]Dr. Nahed Yañez VLDL CALC 31.4 mg/dL Normal [facility] Comment on above: Performed By: #### B BALING PRESS OPERATOR, LIPID, T7, TSH, CMP ####[facility] Mzfkddqfny0110 [place] [address]Dr. Nahed Yañez OCC BLD IMMUNO SCREENon 04-14 OCCULT BLOOD Negative Normal NEGATIVE [facility] Comment on above: Performed By: #### O BSCRN ####[facility] Wptxthfcmw6037 [place] [address]Dr. Nahed Yañez PROF 14(COMP METB)on 022 Albumin [Mass/Vol] 3.7 g/dL Normal 3.4-5.0 [facility] Comment on above: Performed By: #### B BALING PRESS OPERATOR, LIPID, T7, TSH, CMP ####[facility] Ndjyeimcgw1415 [place] [address]Dr. Nahed Yañez Albumin/Globulin [Mass ratio] 0.9 {ratio} Normal [facility] Comment on above: Performed By: #### B BALING PRESS OPERATOR, LIPID, T7, TSH, CMP ####[facility] Mtlkecdbvd9314 [place] [address]Dr. Nahed Yañez ALP [Catalytic activity/Vol] 99 U/L Normal 46-116 [facility] Comment on above: Performed By: #### B BALING PRESS OPERATOR, LIPID, T7, TSH, CMP ####[facility] Qnrvgcfqtd7128 [place] [address]Dr. Nahed Yañez ALT [Catalytic activity/Vol] 20 U/L Normal 14-59 [facility] Comment on above: Performed By: #### B BALING PRESS OPERATOR, LIPID, T7, TSH, CMP ####[facility] Veopxqqewx1148 [place] [address]Dr. Nahed Yañez Anion gap [Moles/Vol] 10.6 mmol/L Normal Th e [facility] Comment on above: Performed By: #### B BALING PRESS OPERATOR, LIPID, T7, TSH, CMP ####[facility] Dkgeaumcos[address] [place] [address]Dr. Nahed Yañez AST [Catalytic activity/Vol] 29 U/L Normal 15-37 [facility] Comment on above: Performed By: #### B BALING PRESS OPERATOR, LIPID, T7, TSH, CMP ####[facility] Zdxorizgst[address] [place] [address]Dr. Nahed Yañez Bilirubin [Mass/Vol] 0.4 mg/dL Normal 0.2-1.0 [facility] Comment on above: Performed By: #### B BALING PRESS OPERATOR, LIPID, T7, TSH, CMP ####[facility] Dimntzjv[address] [place], [place] [address]Dr. Nahed Yañez Calcium [Mass/Vol] 9.3 mg/dL Normal 8.5-10.1 [facility] Comment on above: Performed By: #### B BALING PRESS OPERATOR, LIPID, T7, TSH, CMP ####[facility] Bqakwoayki[address] [place], [place] [address]Dr. Nahed Yañez Chloride [Moles/Vol] 100 mmol/L Normal 98-107 [facility] Comment on above: Performed By: #### B BALING PRESS OPERATOR, LIPID, T7, TSH, CMP ####[facility] Ksijdmwrlo[address] [place], [place] [address]Dr. Nahed Yañez CO2 [Moles/Vol] 31.4 mmol/L Normal 21.0-32.0 [facility] Comment on above: Performed By: #### B BALING PRESS OPERATOR, LIPID, T7, TSH, CMP ####[facility] Bvtfbvscip[address] [place], [place] [address]Dr. Nahed Yañez Creatinine [Mass/Vol] 1.01 mg/dL Normal 0.55-1.02 [facility] Comment on above: Performed By: #### B BALING PRESS OPERATOR, LIPID, T7, TSH, CMP ####[facility] Fihkarecfa[address] [place] [address]Dr. Nahed Yañez EGFR-AF POLISH >60 Normal >=60 The [facility] Comment on above: Performed By: #### B BALING PRESS OPERATOR, LIPID, T7, TSH, CMP ####[facility] Pbtghtduyp25[address] [place] [address]Dr. Nahed Yañez EGFR-NON AF POLISH 56 mL/min/1.73m2 Critically low >=60 The [facility] Comment on above: Performed By: #### B BALING PRESS OPERATOR, LIPID, T7, TSH, CMP ####[facility] Sqhbq[address]acp[address] [place], [place] [address]Dr. Nahed Yañez Globulin (S) [Mass/Vol] 3.9 g/dL Normal [facility] Comment on above: Performed By: #### B BALING PRESS OPERATOR, LIPID, T7, TSH, CMP ####[facility] Agwvuzmggw[address] [place], [place] [address]Dr. Nahed Yañez Glucose [Mass/Vol] 111 mg/dL Critically high 74-106 [facility] Comment on above: Performed By: #### B BALING PRESS OPERATOR, LIPID, T7, TSH, CMP ####[facility] Mtkwdvnjze[address] [place], [place] [address]Dr. Nahed Yañez Potassium [Moles/Vol] 4.0 mmol/L Normal 3.5-5.1 The [facility] Comment on above: Performed By: #### B BALING PRESS OPERATOR, LIPID, T7, TSH, CMP ####[facility] Jadkistvds[address] [place], [place] [address]Dr. Nahed Yañez Protein [Mass/Vol] 7.6 g/dL Normal 6.4-8.2 [facility] Comment on above: Performed By: #### B BALING PRESS OPERATOR, LIPID, T7, TSH, CMP ####[facility] Sabtlgcijv[address] [place], [place] [address]Dr. Nahed Yañez Sodium [Moles/Vol] 138 mmol/L Normal 136-145 [facility] Comment on above: Performed By: #### B BALING PRESS OPERATOR, LIPID, T7, TSH, CMP ####[facility] Tjcrdnfcei[address] [place], [place] [address]Dr. Nahed Yañez Urea nitrogen [Mass/Vol] 17.0 mg/dL Normal 7.0-18.0 [facility] Comment on above: Performed By: #### B BALING PRESS OPERATOR, LIPID, T7, TSH, CMP ####[facility] Hbmaaezsap[address] [place] [address]Dr. Nahed Yañez Urea nitrogen/Creatinine [Mass ratio] 16.8 mg/mg Normal [facility] Comment on above: Performed By: #### B BALING PRESS OPERATOR, LIPID, T7, TSH, CMP ####[facility] Uvaayejmlf5[address] [place] [id number]. Nahed Yañez TSHon 05-08-2022 TSH 2.835 uIU/mL Normal 0.358-3.740 [facility] Comment on above: Performed By: #### B BALING PRESS OPERATOR, LIPID, T7, TSH, CMP ####[facility] Sfmdhjacsi045[address] [place] [address]Dr. Nahed Yañez VITAMIN D 25 OHon 05-08-2022 VIT D 25-OH 13.4 ng/mL Normal [facility] Comment on above: Performed By: #### V ITLUISA, IRON ####[facility] Ctclol[address] [place], [place] [address]Dr. Nahed Yañez VIT D RANGES SEE BELOW Normal The [facility] Comment on above: Result Comment: <20 ng/mL Vit D deficient 20 - <30 ng/mL Vit D insufficient 30 - 100 ng/mL Vit D sufficient >100 ng/mL Potential Toxicity Performed By: #### V ITLUISA, IRON ####[facility] Zdgidmvuud4[address] [place] [address]Dr. Nahed Yañez CARDIAC FRANCISCO 3-6on 2 CK [Catalytic activity/Vol] 37 U/L Normal 26-192 [facility] Comment on above: Performed By: #### C MREP ####[facility] Dulopidktm4[address] [place] [address]Dr. Nahed Yañez CK.MB [Mass/Vol] 0.79 ng/mL Normal <=3.60 [facility] Comment on above: Performed By: #### C MREP ####[facility] Lmipqyoruj[address] [place] [address]Dr. Nahed Yañez HSTROP 55.3 pg/mL Critically high 4.0-51.3 [facility] Comment on above: Result Comment: CUT- OFF POINTS HAVE BEEN ESTABLISHED BASED ON THE FOURTH UNIVERSAL DEFINITIONS OF MYOCARDIALINFARCTION. THE UPPER REFERENCE LIMIT (URL) OF TROPONIN, DEFINED THE 99TH PERCENTILE OFcTnI DISTRIBUTION IN A REFERENCE POPULATION, HAS BEEN CONFIRMED THE DECISION THRESHOLDFOR OR DIAGNOSIS. Performed By: #### C MREP ####[facility] Naynjvhzme24[address] [place] [id number]. Nahed Yañez CK [Catalytic activity/Vol] 49 U/L Normal 26-192 [facility] Comment on above: Performed By: #### C MREP ####[facility] Tgulkvmloa3047 [place] [address]Dr. Nahed Yañez CK.MB [Mass/Vol] 0.71 ng/mL Normal <=3.60 The [facility] Comment on above: Performed By: #### C MREP ####[facility] Cpxzexhafs06[address] [place] [id number]. Nahed Yañez HSTROP 62.6 pg/mL Critically high 4.0-51.3 The [facility] Comment on above: Result Comment: CUT- OFF POINTS HAVE BEEN ESTABLISHED BASED ON THE FOURTH UNIVERSAL DEFINITIONS OF MYOCARDIALINFARCTION. THE UPPER REFERENCE LIMIT (URL) OF TROPONIN, DEFINED THE 99TH PERCENTILE OFcTnI DISTRIBUTION IN A REFERENCE POPULATION, HAS BEEN CONFIRMED THE DECISION THRESHOLDFOR OR DIAGNOSIS. Performed By: #### C MREP ####[facility] Kbccwzqpcd5[address] [place] [id number]. Nahed Yañez Covid-19 PCR (CVDTB)on 01-13 SARS-CoV-2 (COVID-19) RNA MIRNA+probe Ql (Unsp spec) Not detected Normal NOT DETECTED The [facility] Comment on above: Result Comment: When diagnostic [...] for this test is supported by the [place] of Health and Human Service's declaration that [...] longer be used). Performed By: #### [facility] ####[facility] Mosekdyxdd[address] [place], [place] [address]Dr. Nahed Yañez ECHO LIMITED STUDYon 022 ECHO LIMITED STUDY Normal [facility] GLYCOHEMOGLOBIN A1Con 2021 ADA RECOMMENDATION SEE BELOW Normal [facility] Comment on above: Result Comment: ADA RECOMMENDED LIMIT 4.0 - 6.0 ADA THERAPEUTIC TARGET < 7.0 ACTION SUGGESTED > 7.0 Performed By: #### A 1C ####[facility] H[address]ussg[address]jw[address] [place], [place] [address]Dr. Nahed Yañez Glucose [Mass/Vol] 140 mg/dL Normal [facility] Comment on above: Performed By: #### A 1C ####[facility] Qapj[address]jmsv[address] [place], [place] [address]Dr. Nahed Yañez HbA1c (Bld) [Mass fraction] 6.5 % Critically high 4.5-6.2 [facility] Comment on above: Performed By: #### A 1C ####[facility] Cpsptjmyhp[address] [place], [place] [address]Dr. Nahed Yañez LIPID PROFILEon 01-31-2022 CHOL-HDL RATIO NORM SEE BELOW Normal The [facility] Comment on above: Result Comment: 3.3 - 4.4 LOW RISK 4.4 - 7.1 AVERAGE RISK 7.1 - 11.0 MODERATE RISK >11.0 HIGH RISK Performed By: #### L IPID ####[facility] Brdbibdqvg[address] [place], [place] [address]Dr. Nahed Yañez Cholesterol [Mass/Vol] 152 mg/dL Normal <=200 Th [facility] Comment on above: Performed By: #### L IPID ####[facility] Ntdwserrdb74[address] [place], [place] [address]Xm. Nahed Yañez Cholesterol in HDL [Mass/Vol] 74 mg/dL Critically high 40-60 [facility] Comment on above: Performed By: #### L IPID ####[facility] Xrqniviaqs0218 [place] [id number]. Nahed Yañez Cholesterol in LDL [Mass/Vol] 62.8 mg/dL Normal [facility] Comment on above: Performed By: #### L IPID ####[facility] Pbglamflqe8094 [place] [id number]. Nahed Yañez Cholesterol.total/Chol esterol in HDL [Mass ratio] 2.1 {ratio} Normal [facility] Comment on above: Performed By: #### L IPID ####[facility] Hkbgcvtlvj2218 [place] [id number]. Nahed Yañez HDL NORMAL > or = 60 mg/dl - LO W CARDIOVASCULAR RISK <40 mg/dl - HIGH CARDIOVASCULAR RISK Normal [facility] Comment on above: Performed By: #### L IPID ####[facility] Zbjvjthyir1047 [place] [id number]. Nahed Yañez LDL CALC NORMAL SEE BELOW Normal [facility] Comment on above: Result Comment: <100 mg/dl OPTIMAL 100 - 129 mg/dl NEAR OR ABOVE OPTIMAL 130 - 159 mg/dl BORDERLINE HIGH 160 - 189 mg/dl HIGH >190 mg/dl VERY HIGH Performed By: #### L IPID ####[facility] Echbkputot80[address] [place] [id number]. Nahed Yañez Triglyceride [Mass/Vol] 76 mg/dL Normal <=150 The [facility] Comment on above: Performed By: #### L IPID ####[facility] Boughjywog[address] [place] [id number]. Nahed Yañez VLDL CALC 15.2 mg/dL Normal [facility] Comment on above: Performed By: #### L IPID ####[facility] Yvugoeurnz9145 [place] [id number]. Nahed Yañez XR CHEST 1 Von 01-31-2022 XR CHEST 1 V Normal [facility] BNPon 01-30-2022 Natriuretic peptide B (Bld) [Mass/Vol] 150.0 pg/mL Normal <=900.0 The [facility] Comment on above: Performed By: #### B MP, BNP, CMADM ####[facility] Brjoxosmvm99[address] [place] [address]Dr. Rosemarieashley Yañez CARDIAC FRANCISCO ADMITon 022 CK [Catalytic activity/Vol] 88 U/L Normal 26-192 [facility] Comment on above: Performed By: #### B MP, BNP, CMADM ####[facility] Qgweabdeeu9308 [place] [address]Dr. Nahed Otilio CK.MB [Mass/Vol] 1.26 ng/mL Normal <=3.60 The [facility] Comment on above: Performed By: #### B MP, BNP, CMADM ####[facility] Yyzeatduqe[address] [place], [place] [address]Dr. Nahed Yañez HSTROP 69.3 pg/mL Critically high 4.0-51.3 The [facility] Comment on above: Result Comment: CUT- OFF POINTS HAVE BEEN ESTABLISHED BASED ON THE FOURTH UNIVERSAL DEFINITIONS OF MYOCARDIALINFARCTION. THE UPPER REFERENCE LIMIT (URL) OF TROPONIN, DEFINED THE 99TH PERCENTILE OFcTnI DISTRIBUTION IN A REFERENCE POPULATION, HAS BEEN CONFIRMED THE DECISION THRESHOLDFOR OR DIAGNOSIS. Performed By: #### B MP, BNP, CMADM ####[facility] Zafszeyihj[address] [place] [address]Dr. Nahed Otilio ANDRE 59 ng/mL Normal 9-82 [facility] Comment on above: Performed By: #### B MP, BNP, CMADM ####[facility] Wjyijkwigm3338 [place] [address]Dr. Nahed Yañez CBC AUTO DIFFon 01-30-2022 BASO # 0.0 103/ul Normal 0.0-0.1 [facility] Comment on above: Performed By: #### C BC ####[facility] Urinnnujbs[address] [place], [place] [address]Dr. Nahed Yañez Basophils/100 WBC (Bld) 0.2 % Normal 0.2-2.0 [facility] Comment on above: Performed By: #### C BC ####[facility] Tiqjpfantg2537 [place] [address]Dr. Nahed Yañez EO # 0.1 103/ul Normal 0.0-0.7 [facility] Comment on above: Performed By: #### C BC ####[facility] Tskgeubykw0587 [place] [address]Dr. Nahed Yañez Eosinophils/100 WBC (Bld) 0.8 % Critically low 0.9-7.0 The [facility] Comment on above: Performed By: #### C BC ####[facility] Saamnzowfn[address] [place], [place] [address]Dr. Nahed Yañez Erythrocyte distribution width (RBC) [Ratio] 14.9 % Normal 11.0-15.0 [facility] Comment on above: Performed By: #### C BC ####[facility] Busxazegtf[address] [place], [place] [address]Dr. Nahed Yañez Hematocrit (Bld) [Volume fraction] 45.8 % Normal 36.0-48.0 [facility] Comment on above: Performed By: #### C BC ####[facility] Bonvgwzlpu[address] [place], [place] [address]Dr. Nahed Yañez Hemoglobin (Bld) [Mass/Vol] 14.7 g/dL Normal 12.0-16.0 [facility] Comment on above: Performed By: #### C BC ####[facility] Zjadzqanbf[address] [place], [place] [address]Dr. Nahed Yañez IG # 0.07 10e3/ul Critically high 0.00-0.03 [facility] Comment on above: Performed By: #### C BC ####[facility] Iosgsvbcsw[address] [place], [place] [address]Dr. Nahed Yañez IG % 0.4 % Normal 0.0-0.5 [facility] Comment on above: Performed By: #### C BC ####[facility] Palwnfmtby[address]6 [place] [address]Dr. Nahed Otilio LYMPH # 2.3 103/ul Normal 1.2-3.8 [facility] Comment on above: Performed By: #### C BC ####[facility] Nmrrnceyhv3910 [place] [address]Dr. Nahed Otilio Lymphocytes/100 WBC (Bld) 12.5 % Critically low 20.5-60.0 [facility] Comment on above: Performed By: #### C BC ####[facility] Lbyrnicasz5142 [place] [address]Dr. Nahed Otilio MANUAL DIFF REQ NO Normal [facility] Comment on above: Performed By: #### C BC ####[facility] Phkpqtazbw[address] [place] [address]Dr. Nahed Otilio MCH (RBC) [Entitic mass] 28.0 pg Normal 26.7-34.0 [facility] Comment on above: Performed By: #### C BC ####[facility] Scgtuxhlmq[address] [place], [place] [address]Dr. Nahed Otilio MCHC (RBC) [Mass/Vol] 32.1 g/dL Normal 29.9-35.2 [facility] Comment on above: Performed By: #### C BC ####[facility] Xmdmfjizns0947 [place] [address]Dr. Nahed Otilio MCV (RBC) [Entitic vol] 87.2 fL Normal 81.0-99.0 [facility] Comment on above: Performed By: #### C BC ####[facility] Czvoteobsg3931 [place] [address]Dr. Nahed Otilio MONO # 0.9 103/ul Critically high 0.3-0.8 [facility] Comment on above: Performed By: #### C BC ####[facility] Nempolxtsd[address] [place], [place] [address]Dr. Nahed Otilio Monocytes/100 WBC (Bld) 5.1 % Normal 1.7-12.0 [facility] Comment on above: Performed By: #### C BC ####[facility] Frtkytxbpp9562 [place] [address]Dr. Nahed Yañez NEUT # 14.6 103/ul Critically high 1.4-6.5 The [facility] Comment on above: Performed By: #### C BC ####[facility] Hchohjdust6755 [place] [address]Dr. Nahed Yañez Neutrophils/100 WBC (Bld) 81.0 % Critically high 43.0-75.0 [facility] Comment on above: Performed By: #### C BC ####[facility] Ialdtwubic1236 [place] [address]Dr. Nahed Yañez Platelet mean volume (Bld) [Entitic vol] 10.3 fL Normal 9.5-13.5 [facility] Comment on above: Performed By: #### C BC ####[facility] Kotwcjlrlw8248 [place] [address]Dr. Nahed Yañez PLT 280 103/ul Normal 150-450 [facility] Comment on above: Performed By: #### C BC ####[facility] Nnpjipmeon[address] [place], [place] [address]Dr. Nahed Yañez RBC 5.25 106/ul Normal 4.20-5.40 [facility] Comment on above: Performed By: #### C BC ####[facility] Bmfhormzkc[address] [place], [place] [address]Dr. Nahed Yañez WBC 18.1 103/ul Critically high 4.0-11.0 [facility] Comment on above: Performed By: #### C BC ####[facility] Xzwlroejqv[address] [place], [place] [address]Dr. Rosemarieashley Yañez PROF CHEM 8 (BAS METB)on Anion gap [Moles/Vol] 13.5 mmol/L Normal [facility] Comment on above: Performed By: #### B MP, BNP, CMADM ####[facility] Qsfmpfyifv1777 [place] [address]Dr. Nahed Yañez Calcium [Mass/Vol] 9.5 mg/dL Normal 8.5-10.1 [facility] Comment on above: Performed By: #### B MP, BNP, CMADM ####[facility] Reioziualb1307 [place] [address]Dr. Nahed Yañez Chloride [Moles/Vol] 102 mmol/L Normal 98-107 [facility] Comment on above: Performed By: #### B MP, BNP, CMADM ####[facility] Ofaakubvcq2768 [place] [address]Dr. Nahed Yañez CO2 [Moles/Vol] 26.6 mmol/L Normal 21.0-32.0 The [facility] Comment on above: Performed By: #### B MP, BNP, CMADM ####[facility] Bizqsdmjfe1573 [place] [address]Dr. Nahed Yañez Creatinine [Mass/Vol] 1.06 mg/dL Critically high 0.55-1.02 [facility] Comment on above: Performed By: #### B MP, BNP, CMADM ####[facility] [address]trlxvsjrt[address] [place], [place] [address]Dr. Nahed Yañez EGFR-AF POLISH >60 Normal >=60 The [facility] Comment on above: Performed By: #### B MP, BNP, CMADM ####[facility] Ldeosiohqp[address] [place], [place] [address]Dr. Nahed Yañez EGFR-NON AF POLISH 53 mL/min/1.73m2 Critically low >=60 [facility] Comment on above: Performed By: #### B MP, BNP, CMADM ####[facility] Qvrazrdshi7242 [place] [address]Dr. Nahed Yañez Glucose [Mass/Vol] 108 mg/dL Critically high 74-106 [facility] Comment on above: Performed By: #### B MP, BNP, CMADM ####[facility] Zgfwuvkskz[address] [place], [place] [address]Dr. Nahed Yañez Potassium [Moles/Vol] 4.1 mmol/L Normal 3.5-5.1 [facility] Comment on above: Performed By: #### B MP, BNP, CMADM ####[facility] Uxatygmfsd9397 [place] [address]Dr. Nahed Yañez Sodium [Moles/Vol] 138 mmol/L Normal 136-145 [facility] Comment on above: Performed By: #### B MP, BNP, CMADM ####[facility] Tnuxpsswgj0556 [place], [place] [address]Xk. Nahed Yañez Urea nitrogen [Mass/Vol] 9.0 mg/dL Normal 7.0-18.0 [facility] Comment on above: Performed By: #### B MP, BNP, CMADM ####[facility] Pirhirrfkz87[address] [place], [place] [address]Hz. Rosemarieashley Yañez Urea nitrogen/Creatinine [Mass ratio] 8.5 mg/mg Normal [facility] Comment on above: Performed By: #### B MP, BNP, CMADM ####[facility] Gxtx[address]xdaeo67[address] [place], [place] [address]Ay. Nahed Yañez Cardiovascular Lab Reporton 11-03-2021 Cardiovascular Lab Report [facility] Patient Name: Vivian Vann [facility] MR #: [id number] Physician: Gasper Avendano, Department of M.D. Medicine Service Date: 11/02/2021 Division of Birthdate: 1960 Cardiology Room #: 4AB [id number] Adult [facility] Services [place] [address] Cardiovascular Laboratory Report FINAL IMPRESSIONS: 1. Severe, [...] anterior descending coronary artery, placement of a 6-Bur[place]ian MynxGrip closure device. METHODS: After risks, benefits, and alternatives were explained, written informed consent was obtained. The patient was prepped and draped in usual sterile fashion over both groins. Using 1% lidocaine solution, local infiltration anesthesia was achieved over the right groin. Under ultrasound guidance, a micropuncture kit was used to access the right common femoral artery. This was upsized to a 6-Burundian 11 cm sheath. Angiography via the 6-Burundian sheath was performed. Bilateral selective coronary angiography was performed using JL4 and JR4 catheters. After reviewing the images, it was elected to proceed with an interventional procedure. A 6-Burundian XB3.5 guide catheter was advanced over a [...] artery, angiography was repeated initially using a 6-Burundian 3DRC catheter and subsequently using a 4-Burundian JR4 catheter. After administration of intracoronary nitroglycerin, the concerning lesion almost completely resolved. There was a residual mild stenosis. All catheters removed. A 6-Burundian MynxGrip closure device was deployed per protocol [...] and anatomy suitable for closure device. INDICATION: Yeq-GS-zbtnieezq myocardial infarction. Electronically Signed by: Gasper Avendano M.D. 11/21/2021 02:07 P Gasper Avendano M.D (more content not included)... Normal [facility] CBC COMPLETE BLOOD COUNTon 0 - Erythrocyte distribution width (RBC) [Ratio] 14.7 % Normal 11.5-15.0 [facility] Comment on above: Order Comment: No: D o not add to previous draw Performed By: #### 3 2920, 43681 #### [facility] [address] Hematocrit (Bld) [Volume fraction] 34.5 % Low 36.0-45.0 [facility] Comment on above: Order Comment: No: D o not add to previous draw Performed By: #### 3 0450, 99185 #### [facility] [address] [facility] [place] [address], [facility] Hemoglobin (Bld) [Mass/Vol] 10.6 g/dL Low 12.0-15.0 [facility] Comment on above: Order Comment: No: D o not add to previous draw Performed By: #### 3 9050, 79212 #### [facility] [address] [place] [address], [facility] MCH (RBC) [Entitic mass] 28.1 pg Normal 27.0-33.0 [facility] Comment on above: Order Comment: No: D o not add to previous draw Performed By: #### 3 520, 83023 #### [facility] [address] [place] [address], [facility] MCHC (RBC) [Mass/Vol] 30.7 g/dL Low 32.0-35.0 [facility] Comment on above: Order Comment: No: D o not add to previous draw Performed By: #### 3 5199, 63419 #### [facility] [address] [facility] [place] [address], [facility] MCV (RBC) [Entitic vol] 91.5 fL Normal 82.0-98.0 [facility] Comment on above: Order Comment: No: D o not add to previous draw Performed By: #### 3 5199, 71458 #### [facility] [address] [facility] [place] [address], [facility] Nucleated RBC/100 WBC (Bld) [Ratio] 0 % Normal 0-0 [facility] Comment on above: Order Comment: No: D o not add to previous draw Performed By: #### 3 5199, 84599 #### [facility] [address] [facility] [place] [address], [facility] PLAT CNT 219 10*3/uL Normal 150-400 [facility] Comment on above: Order Comment: No: D o not add to previous draw Performed By: #### 3 5199, 14910 #### [facility] [address] [facility] [place] [address], [facility] RBC (Bld) [#/Vol] 3.77 10*6/uL Low 3.80-5.00 [facility] Comment on above: Order Comment: No: D o not add to previous draw Performed By: #### 3 5199, 11096 #### [facility] [address] [place] [address], [facility] WBC (Bld) [#/Vol] 13.64 10*3/uL High 4.00-10.60 [facility] Comment on above: Order Comment: No: D o not add to previous draw Performed By: #### 3 5200, 52636 #### [facility] [address] [place] [address], [facility] HEMOGLOBIN A1Con 11-02-2021 Glucose [Moles/Vol] 140 mmol/L Normal [facility] Comment on above: Order Comment: No: D o not add to previous draw Performed By: #### 3 1791 #### [facility] [address] [place] [address], [facility] HbA1c (Bld) [Mass fraction] 6.5 % High 4.0-6.0 [facility] Comment on above: Order Comment: No: D o not add to previous draw Performed By: #### 3 1791 #### [facility] [address] [place] [address], [facility] LIPID PROFILEon 11-02-2021 Cholesterol [Mass/Vol] 171 mg/dL Normal 120-200 [facility] Comment on above: Order Comment: No: D o not add to previous draw Result Comment: CHOL ESTEROL REFERENCE RANGE: 20 YEARS AND OLDER CARDIOVASCULAR RISK Less than 200 mg/dl Low Risk 200 to 239 mg/dl Borderline Risk 240 mg/dl and greater High Risk Performed By: #### 3 5200, 22129 #### [facility] [address] [place] [address], [facility] Cholesterol in HDL [Mass/Vol] 57 mg/dL Normal 23-92 [facility] Comment on above: Order Comment: No: D o not add to previous draw Result Comment: Slig ht variation in normal range could be due to gender and/or age. HDL CHOLESTEROL REFERENCE RANGE: 20 years and older Cardiovascular Risk > or =60 mg/dL Desirable 40 TO 59 mg/dL Low Risk <40 mg/dL High Risk Performed By: #### 3 5200, 06799 #### [facility] [address] [place] [address], [facility] Cholesterol in LDL [Mass/Vol] 89 mg/dL Normal 0-130 [facility] Comment on above: Order Comment: No: D o not add to previous draw Result Comment: LDL IS A CALCULATION LDL IS ONLY VALID IF THE TRIG IS LESS THAN 400. Performed By: #### 3 5200, 79162 #### [facility] [address] [place] [address], [facility] Cholesterol.total/Chol esterol in HDL [Mass ratio] 3.0 {ratio} Normal .0-4.5 [facility] Comment on above: Order Comment: No: D o not add to previous draw Performed By: #### 3 5200, 16508 #### [facility] [address] [place] [address], [facility] NON-HDL CHOLESTEROL 114 mg/dL Normal [facility] Comment on above: Order Comment: No: D o not add to previous draw Performed By: #### 3 5200, 06937 #### [facility] [address] [place] [address], [facility] Triglyceride [Mass/Vol] 124 mg/dL Normal 40-149 [facility] Comment on above: Order Comment: No: D o not add to previous draw Result Comment: TRIG LYCERIDE REFERENCE RANGE: 20 YEARS AND OLDER CARDIOVASCULAR RISK LESS THAN 150 mg/dl LOW RISK 150 TO 199 mg/dl BORDERLINE RISK 200 mg/dl AND GREATER HIGH RISK Performed By: #### 3 5200, 23023 #### [facility] [address] [place] [address], [facility] VLDL CHOL 25 mg/dL Normal 0-40 [facility] Comment on above: Order Comment: No: D o not add to previous draw Performed By: #### 3 5200, 24273 #### [facility] [address] [place] [address], [facility] TROPONIN-Ion 11-02-2021 Troponin I.cardiac [Mass/Vol] 0.14 ng/mL Critically high 0.00-0.04 [facility] Comment on above: Result Comment: M-SC EVIOUS CRITICAL RESULT REFERENCE RANGES: 0.00 - 0.04 ng/ml NORMAL 0.05 - 0.50 ng/ml INDETERMINATE > 0.50 ng/ml CONSISTENT WITH AN M.I. Performed By: #### 3 5200, 65353 #### [facility] [address] Troponin I.cardiac [Mass/Vol] 0.19 ng/mL Critically high 0.00-0.04 [facility] Comment on above: Order Comment: No: D o not add to previous draw Result Comment: M-SC EVIOUS CRITICAL RESULT REFERENCE RANGES: 0.00 - 0.04 ng/ml NORMAL 0.05 - 0.50 ng/ml INDETERMINATE > 0.50 ng/ml CONSISTENT WITH AN M.I. Performed By: #### 3 5200 #### [facility] [address] [facility] [place] [place] [address], [facility] TYPE AND SCREENon 11-02-2021 ABO INTERPRETATION O Normal [facility] Comment on above: Performed By: #### 3 5200, 30881 #### [facility] [address] [facility] [place] [address], [facility] RH INTERPRETATION Positive Normal [facility] Comment on above: Performed By: #### 3 5200, 45938 #### [facility] [address] [facility] [place] [address], [facility] UFH HEPARIN ASSAYon 11-03-19 22 UNFRACTIONATED HEPARIN 0.76 IU/mL High 0.30-0.70 [facility] Comment on above: Result Comment: Clare roxaban and Apixaban will interfere with the anti Xa assay used to monitor UFH and LMWH. Performed By: #### 3 5200, 71043 #### [facility] [address] [facility] [address] UNFRACTIONATED HEPARIN 0.96 IU/mL Critically high 0.30-0.7 0 [facility] Comment on above: Result Comment: Resu lt checked and called. Accurately read back by Kathy Suárez RN at 0548 Rivaroxaban and Apixaban will interfere with the anti Xa assay used to monitor UFH and LMWH. Performed By: #### 3 0477 #### [facility] [address] [facility]. [address] APTTon 11-01-2021 aPTT Coag (Bld) [Time] 28.6 s Normal 25.0-35.0 [facility] Comment on above: Order Comment: No: [...] THIS PURPOSE. Performed By: #### 3 5200, 12971 #### [facility] [address] [place] [address], [facility] BNPon 11-01-2021 Natriuretic peptide B (Bld) [Mass/Vol] 9643.0 pg/mL Critically high <=900.0 [facility] Comment on above: Performed By: #### C MP, BNP, HSTROPN ####[facility] [address] [place], [place] [address]Bj. Nahed Yañez BNP (B-TYPE NATRIURETIC PEPT AYLEEN)on 11-01-2021 Natriuretic peptide B (Bld) [Mass/Vol] 768 pg/mL High 0-100 [facility] Comment on above: Order Comment: No: D o not add to previous draw Result Comment: Give n the appropriate clinical setting a BNP result of >100 pg/mL indicates congestive heart failure. Performed By: #### 8 5123 #### [facility] [address] [place] [address], [facility] CBC AUTO DIFFon 11-01-2021 BASO # 0.0 103/ul Normal 0.0-0.1 [facility] Comment on above: Performed By: #### C BC ####[facility] [address] [place], [place] [address]Dr. Nahed Yañez Basophils/100 WBC (Bld) 0.1 % Critically low 0.2-2.0 [facility] Comment on above: Performed By: #### C BC ####[facility] [address] [place], [place] [address]Dr. Nahed Yañez EO # 0.0 103/ul Normal 0.0-0.7 [facility] Comment on above: Performed By: #### C BC ####[facility] [address] [place], [place] [address]Dr. Nahed Yañez Eosinophils/100 WBC (Bld) 0.0 % Critically low 0.9-7.0 [facility] Comment on above: Performed By: #### C BC ####[facility] [address] [place], [place] [address]Dr. Nahed Yañez Erythrocyte distribution width (RBC) [Ratio] 14.7 % Normal 11.0-15.0 [facility] Comment on above: Performed By: #### C BC ####[facility] [address] [place], [place] [address]Dr. Nahed Yañez Hematocrit (Bld) [Volume fraction] 36.1 % Normal 36.0-48.0 [facility] Comment on above: Performed By: #### C BC ####[facility] [address] [place], [place] [address]Dr. Nahed Yañez Hemoglobin (Bld) [Mass/Vol] 11.1 g/dL Critically low 12.0-16.0 [facility] Comment on above: Result Comment: IV a ntibiotics Performed By: #### C BC ####[facility] [address] [place], [place] [address]Dr. Nahed Yañez IG # 0.09 10e3/ul Critically high 0.00-0.03 [facility] Comment on above: Performed By: #### C BC ####[facility] [address] [place] [id number]. Nahed Yañez IG % 0.7 % Critically high 0.0-0.5 [facility] Comment on above: Performed By: #### C BC ####[facility] [address] [place] [id number]. Nahed Yañez LYMPH # 0.6 103/ul Critically low 1.2-3.8 [facility] Comment on above: Performed By: #### C BC ####[facility] [address] [place] [id number]. Nahed Yñaez Lymphocytes/100 WBC (Bld) 4.8 % Critically low 20.5-60.0 [facility] Comment on above: Performed By: #### C BC ####[facility] [address] [place] [id number]. Nahed Yañez MANUAL DIFF REQ NO Normal [facility] Comment on above: Performed By: #### C BC ####[facility] [address] [place] [id number]. Nahed Yañez MCH (RBC) [Entitic mass] 28.2 pg Normal 26.7-34.0 [facility] Comment on above: Performed By: #### C BC ####[facility] [address] [place] [id number]. Nahed Yañez MCHC (RBC) [Mass/Vol] 30.7 g/dL Normal 29.9-35.2 [facility] Comment on above: Performed By: #### C BC ####[facility] [address] [place] [id number]. Nahed Yañez MCV (RBC) [Entitic vol] 91.9 fL Normal 81.0-99.0 [facility] Comment on above: Performed By: #### C BC ####[facility] [address] [place] [id number]. Nahed Yañez MONO # 0.2 103/ul Critically low 0.3-0.8 [facility] Comment on above: Performed By: #### C BC ####[facility] [address] [place] [id number]. Nahed Yañez Monocytes/100 WBC (Bld) 1.7 % Normal 1.7-12.0 [facility] Comment on above: Performed By: #### C BC ####[facility] [address] [place] [id number]. Nahed Yañez NEUT # 11.2 103/ul Critically high 1.4-6.5 The [facility] Comment on above: Performed By: #### C BC ####[facility] [address] [place] [address]Dr. Nahed Yañez Neutrophils/100 WBC (Bld) 92.7 % Critically high 43.0-75.0 [facility] Comment on above: Performed By: #### C BC ####[facility] [address] [place] [address]Dr. Nahed Yañez Platelet mean volume (Bld) [Entitic vol] 11.1 fL Normal 9.5-13.5 [facility] Comment on above: Performed By: #### C BC ####[facility] [address] [place] [address]Dr. Nahed Yañez PLT 213 103/ul Normal 150-450 [facility] Comment on above: Performed By: #### C BC ####[facility] [address] [place] [address]Dr. Nahed Yañez RBC 3.93 106/ul Critically low 4.20-5.40 [facility] Comment on above: Performed By: #### C BC ####[facility] [address] [place] [id number]. Nahed Yañez WBC 12.0 103/ul Critically high 4.0-11.0 The [facility] Comment on above: Performed By: #### C BC ####[facility] [address] [place] [id number]. Nahed Yañez CBC W/DIFFon 11-01-2021 ABS IMM GRANS 0.2 10*3/uL Normal 0.0-0.2 [facility] Comment on above: Order Comment: No: D o not add to previous draw Performed By: #### 3 5200, 48176 #### [facility] [address] [place] [address], [facility] ABS NEUTROPHILS 12.5 10*3/uL High 1.6-7.6 [facility] Comment on above: Order Comment: No: D o not add to previous draw Performed By: #### 3 5199, 98636 #### [facility] [address] [place] [address], [facility] Basophils (Bld) [#/Vol] 0.0 10*3/uL Normal 0.0-0.2 [facility] Comment on above: Order Comment: No: D o not add to previous draw Performed By: #### 3 5199, 70339 #### [facility] [address] [place] [address], [facility] Basophils/100 WBC (Bld) 0.0 % Normal 0.0-1.0 [facility] Comment on above: Order Comment: No: D o not add to previous draw Performed By: #### 3 5199, 99105 #### [facility] [address] [place] [address], [facility] Eosinophils (Bld) [#/Vol] 0.0 10*3/uL Normal 0.0-0.5 [facility] Comment on above: Order Comment: No: D o not add to previous draw Performed By: #### 3 5199, 85675 #### [facility] [address] [place] [address], [place] Eosinophils/100 WBC (Bld) 0.0 % Normal 0.0-6.0 [facility] Comment on above: Order Comment: No: D o not add to previous draw Performed By: #### 3 5199, 76640 #### [facility] [address] [place] [address], [place] Erythrocyte distribution width (RBC) [Ratio] 14.6 % Normal 11.5-15.0 [facility] Comment on above: Order Comment: No: D o not add to previous draw Performed By: #### 3 5199, 22431 #### [facility] [address] [place] [address], [facility] Hematocrit (Bld) [Volume fraction] 36.6 % Normal 36.0-45.0 [facility] Comment on above: Order Comment: No: D o not add to previous draw Performed By: #### 3 5199, 63777 #### [facility] [address] [place] [address], [facility] Hemoglobin (Bld) [Mass/Vol] 11.4 g/dL Low 12.0-15.0 [facility] Comment on above: Order Comment: No: D o not add to previous draw Performed By: #### 3 5199, 84857 #### [facility] [address] [place] [address], [facility] IMMATURE GRANS 1.2 % High 0.0-1.0 [facility] Comment on above: Order Comment: No: D o not add to previous draw Performed By: #### 3 5199, 80147 #### [facility] [address] [place] [address], [facility] Lymphocytes (Bld) [#/Vol] 0.6 10*3/uL Low 1.2-4.0 [facility] Comment on above: Order Comment: No: D o not add to previous draw Performed By: #### 3 5199, 66841 #### [facility] [address] [place] [id number], [place] Lymphocytes/100 WBC (Bld) 4.2 % Low 20.0-45.0 [facility] Comment on above: Order Comment: No: D o not add to previous draw Performed By: #### 3 5199, 77817 #### [facility] [address] [place] [address], [facility] MCH (RBC) [Entitic mass] 28.2 pg Normal 27.0-33.0 [facility] Comment on above: Order Comment: No: D o not add to previous draw Performed By: #### 3 0, 82618 #### [facility] [address] [place] [address], [facility] MCHC (RBC) [Mass/Vol] 31.1 g/dL Low 32.0-35.0 [facility] Comment on above: Order Comment: No: D o not add to previous draw Performed By: #### 3 5199, 18359 #### [facility] [address] [facility] [address], [facility] MCV (RBC) [Entitic vol] 90.6 fL Normal 82.0-98.0 [facility] Comment on above: Order Comment: No: D o not add to previous draw Performed By: #### 3 5199, 70039 #### [facility] [address] [facility] [place] [address], [facility] Monocytes (Bld) [#/Vol] 0.5 10*3/uL Normal 0.1-1.0 [facility] Comment on above: Order Comment: No: D o not add to previous draw Performed By: #### 3 5199, 29318 #### [facility] [address] [facility] [place] [address], [facility] MONOS 3.3 % Low 5.0-12.0 [facility] Comment on above: Order Comment: No: D o not add to previous draw Performed By: #### 3 5199, 69263 #### [facility] [address] [facility] [place] [address], [facility] Neutrophils/100 WBC (Bld) 91.3 % High 40.0-72.0 [facility] Comment on above: Order Comment: No: D o not add to previous draw Performed By: #### 3 5200, 49197 #### [facility] [address] [place] [address], [facility] Nucleated RBC/100 WBC (Bld) [Ratio] 0 % Normal 0-0 [facility] Comment on above: Order Comment: No: D o not add to previous draw Performed By: #### 3 5200, 76413 #### [facility] [address] [place] [id number], [facility] PLAT CNT 224 10*3/uL Normal 150-400 [facility] Comment on above: Order Comment: No: D o not add to previous draw Performed By: #### 3 5200, 32787 #### [facility] [address] [place] [address], [facility] RBC (Bld) [#/Vol] 4.04 10*6/uL Normal 3.80-5.00 [facility] Comment on above: Order Comment: No: D o not add to previous draw Performed By: #### 3 5200, 86692 #### [facility] [address] [place] [address], [facility] WBC (Bld) [#/Vol] 13.70 10*3/uL High 4.00-10.60 [facility] Comment on above: Order Comment: No: D o not add to previous draw Performed By: #### 3 5200, 03863 #### [facility] [address] [place] [id number], [facility] COMP METABOLIC PANELon 11-01 Albumin [Mass/Vol] 3.7 g/dL Normal 3.5-5.7 [facility] Comment on above: Order Comment: No: D o not add to previous draw Performed By: #### 0 0121, 60300, 48018 #### [facility] [address] [place] [id number], [facility] ALKALINE PHOSPH 54 IU/L Normal 34-104 [facility] Comment on above: Order Comment: No: D o not add to previous draw Performed By: #### 0 0121, 58690, 45082 #### [facility] [address] [place] [address], [place] ALT [Catalytic activity/Vol] 12 U/L Normal 7-52 [facility] Comment on above: Order Comment: No: D o not add to previous draw Performed By: #### 0 0121, 90696, 98589 #### [facility] [address] [place] [address], [place] AST [Catalytic activity/Vol] 17 U/L Normal 13-39 [facility] Comment on above: Order Comment: No: D o not add to previous draw Performed By: #### 0 0121, 44526, 57461 #### [facility] [address] [place] [address], [place] Bilirubin [Mass/Vol] 0.3 mg/dL Normal 0.3-1.0 [facility] Comment on above: Order Comment: No: D o not add to previous draw Performed By: #### 0 0121, 05692, 72402 #### [facility] [address] [place] [address], [place] Calcium [Mass/Vol] 9.4 mg/dL Normal 8.6-10.3 [facility] Comment on above: Order Comment: No: D o not add to previous draw Performed By: #### 0 0121, 64789, 92910 #### [facility] [address] [place] [address], [place] Chloride [Moles/Vol] 100 mmol/L Normal 98-107 [facility] Comment on above: Order Comment: No: D o not add to previous draw Performed By: #### 0 0121, 79230, 74163 #### [facility] [address] [place] [address], [place] CO2 [Moles/Vol] 29 mmol/L Normal 21-31 [facility] Comment on above: Order Comment: No: D o not add to previous draw Performed By: #### 0 0121, 91658, 20616 #### [facility] [address] [place] [address], [place] Creatinine [Mass/Vol] 1.04 mg/dL Normal 0.60-1.20 [facility] Comment on above: Order Comment: No: D o not add to previous draw Performed By: #### 0 0121, 88731, 29790 #### [facility] [address] [place] [address], [place] eGFR- non- 54 ml/min/1.73sq m Abnormal >60 [facility] Comment on above: Order Comment: No: D o not add to previous draw Performed By: #### 0 0121, 75563, 09865 #### [facility] [address] [place] [address], [place] GFR/1.73 sq M.predicted among blacks MDRD (S/P/Bld) [Vol rate/Area] mL/min/{1.73_m2} Normal >60 [facility] Comment on above: Order Comment: No: D o not add to previous draw Performed By: #### 0 0121, 89506, 25453 #### [facility] [address] [place] [address], [place] Glucose [Mass/Vol] 239 mg/dL High 70-100 [facility] Comment on above: Order Comment: No: D o not add to previous draw Performed By: #### 0 0121, 69866, 33522 #### [facility] [address] [place] [address], [place] Potassium [Moles/Vol] 4.3 mmol/L Normal 3.5-5.1 [facility] Comment on above: Order Comment: No: D o not add to previous draw Performed By: #### 0 0121, 89710, 58876 #### [facility] [address] [place] [address], [place] Protein [Mass/Vol] 5.6 g/dL Low 6.0-8.3 [facility] Comment on above: Order Comment: No: D o not add to previous draw Performed By: #### 0 0121, 69186, 11343 #### [facility] [address] [place] [address], [facility] Sodium [Moles/Vol] 139 mmol/L Normal 136-145 [facility] Comment on above: Order Comment: No: D o not add to previous draw Performed By: #### 0 0121, 60984, 40394 #### [facility] [address] [place] [address], [facility] Urea nitrogen [Mass/Vol] 24 mg/dL Normal 7-25 [facility] Comment on above: Order Comment: No: D o not add to previous draw Performed By: #### 0 0121, 28714, 62122 #### [facility] [address] [place] [address], [facility] MAGNESIUM BLOODon 11-01-2021 Magnesium [Mass/Vol] 2.0 mg/dL Normal 1.9-2.7 [facility] Comment on above: Order Comment: No: D o not add to previous draw Performed By: #### 0 0121, 57666, 17106 #### [facility] [address] [facility] [place] [address], [facility] PROF 14(COMP METB)on 022 Albumin [Mass/Vol] 3.1 g/dL Critically low 3.4-5.0 [facility] Comment on above: Performed By: #### C MP, BNP, HSTROPN ####[facility] [address] [place] [address]DrShaun Yañez Albumin/Globulin [Mass ratio] 1.0 {ratio} Normal [facility] Comment on above: Performed By: #### C MP, BNP, HSTROPN ####[facility] [address] [place] [address]DrShaun Yañez ALP [Catalytic activity/Vol] 56 U/L Normal 46-116 [facility] Comment on above: Performed By: #### C MP, BNP, HSTROPN ####[facility] [address] [place] [address]Dr. Nahed Yañez ALT [Catalytic activity/Vol] 19 U/L Normal 14-59 [facility] Comment on above: Performed By: #### C MP, BNP, HSTROPN ####[facility] [address] [place] [address]Dr. Nahed Yañez Anion gap [Moles/Vol] 14.3 mmol/L Normal Th e [facility] Comment on above: Performed By: #### C MP, BNP, HSTROPN ####[facility] [address] [place], [place] [address]Dr. Nahed Yañez AST [Catalytic activity/Vol] 18 U/L Normal 15-37 [facility] Comment on above: Performed By: #### C MP, BNP, HSTROPN ####[facility] [address] [place] [address]Dr. Nahed Yañez Bilirubin [Mass/Vol] 0.4 mg/dL Normal 0.2-1.0 [facility] Comment on above: Performed By: #### C MP, BNP, HSTROPN ####[facility] [address] [place] [address]Dr. Nhaed Yañez Calcium [Mass/Vol] 9.3 mg/dL Normal 8.5-10.1 [facility] Comment on above: Performed By: #### C MP, BNP, HSTROPN ####[facility] Qhrxxeveic[address] [place] [address]Dr. Nahed Yañez Chloride [Moles/Vol] 102 mmol/L Normal 98-107 [facility] Comment on above: Performed By: #### C MP, BNP, HSTROPN ####[facility] Hgcdauspym7[address] [place] [address]Dr. Nahed Yañez CO2 [Moles/Vol] 27.1 mmol/L Normal 21.0-32.0 [facility] Comment on above: Performed By: #### C MP, BNP, HSTROPN ####[facility] Sxewrqoslw0315 [place] [address]Dr. Nahed Yañez Creatinine [Mass/Vol] 1.25 mg/dL Critically high 0.55-1.02 [facility] Comment on above: Performed By: #### C MP, BNP, HSTROPN ####[facility] Tmzfjipzhx[address] [place] [address]Dr. Nahed Yañez EGFR-AF POLISH 53 mL/min/1.73m2 Critically low >=60 [facility] Comment on above: Performed By: #### C MP, BNP, HSTROPN ####[facility] Trzyavcqob[address] [place], [place] [address]Dr. Nahed Yañez EGFR-NON AF POLISH 44 mL/min/1.73m2 Critically low >=60 [facility] Comment on above: Performed By: #### C MP, BNP, HSTROPN ####[facility] Knuyvcydei[address] [place], [place] [address]Dr. Nahed Yañez Globulin (S) [Mass/Vol] 3.2 g/dL Normal [facility] Comment on above: Performed By: #### C MP, BNP, HSTROPN ####[facility] Dgjpsrzreb[address] [place], [place] [address]Dr. Nahed Yañez Glucose [Mass/Vol] 248 mg/dL Critically high 74-106 [facility] Comment on above: Performed By: #### C MP, BNP, HSTROPN ####[facility] Zzheahjxsg[address] [place], [place] [address]Dr. Nahed Yañez Potassium [Moles/Vol] 3.4 mmol/L Critically low 3.5-5.1 [facility] Comment on above: Performed By: #### C MP, BNP, HSTROPN ####[facility] Aejucwvcho[address] [place], [place] [address]Dr. Nahed Yañez Protein [Mass/Vol] 6.3 g/dL Critically low 6.4-8.2 Th [facility] Comment on above: Performed By: #### C MP, BNP, HSTROPN ####[facility] Vkwlrkoyas55[address] [place] [id number]. Nahed Yañez Sodium [Moles/Vol] 140 mmol/L Normal 136-145 [facility] Comment on above: Performed By: #### C MP, BNP, HSTROPN ####[facility] Bkzpygeazn4[address] [place] [id number]. Nahed Yañez Urea nitrogen [Mass/Vol] 18.0 mg/dL Normal 7.0-18.0 [facility] Comment on above: Performed By: #### C MP, BNP, HSTROPN ####[facility] Flxroytyge5[address] [place] [address]Dr. Nahed Yañez Urea nitrogen/Creatinine [Mass ratio] 14.4 mg/mg Normal [facility] Comment on above: Performed By: #### C MP, BNP, HSTROPN ####[facility] Cplhhisizp0552 [place] [address]Dr. Nahed Otilio PROTHROMBIN TIMEon 2 INR Coag (PPP) [Relative time] 1.06 {INR} Normal 0.91-1.16 [facility] Comment on above: Order Comment: No: [...] 1995;[id number]. Performed By: #### 5 6101 #### [facility] [address] [facility] [place] [place] [address], [facility] PT Coag (PPP) [Time] 13.8 s Normal 12.3-14.8 [facility] Comment on above: Order Comment: No: D o not add to previous draw Result Comment: ALL RESULTS MUST BE INTERPRETED WITH RESPECT TO BLOOD DRAWING ARTIFACT OR DILUTION ERROR OF ANTICOAGULANT AT THE TIME OF SAMPLING. Performed By: #### 5 6101 #### [facility] [address] [place] [address], [facility] TROPONIN, HIGH SENSITIVITYon 11-01-2021 HSTROP 1684.4 pg/mL Critically high 4.0-51.3 [facility] Comment on above: Result Comment: CUT- OFF POINTS HAVE BEEN ESTABLISHED BASED ON THE FOURTH UNIVERSAL DEFINITIONS OF MYOCARDIALINFARCTION. THE UPPER REFERENCE LIMIT (URL) OF TROPONIN, DEFINED THE 99TH PERCENTILE OFcTnI DISTRIBUTION IN A REFERENCE POPULATION, HAS BEEN CONFIRMED THE DECISION THRESHOLDFOR OR DIAGNOSIS. Performed By: #### C MP, BNP, HSTROPN ####[facility] Fwbrawchmd8496 [place] [address]DrShaun Yañez TROPONIN-Ion 11-01-2021 Troponin I.cardiac [Mass/Vol] 0.22 ng/mL Critically high 0.00-0.04 [facility] Comment on above: Order Comment: No: D o not add to previous draw Result Comment: M-TR OPONIN INITIAL CRITICAL HIGH; RESPUN AND RETESTED M-CRITICAL RESULT(S) REVIEWED, CALLED TO AND READ BACK BY Kathy Suárez RN at 2205. REFERENCE RANGES: 0.00 - 0.04 ng/ml NORMAL 0.05 - 0.50 ng/ml INDETERMINATE > 0.50 ng/ml CONSISTENT WITH AN M.I. Performed By: #### 0 0121, [id number], [id number] #### [facility] [address] [place] [place] [address], [facility] UFH HEPARIN ASSAYon 06-21-20 22 UNFRACTIONATED HEPARIN 0.55 IU/mL Normal 0.30-0.70 Th e [facility] Comment on above: Result Comment: Clare roxaban and Apixaban will interfere with the anti Xa assay used to monitor UFH and LMWH. Performed By: #### 3 5200, [id number] #### [facility] [address] [place] [address], [facility] BLOOD GASES BTYon 10-31-2021 02 MODE ROOM AIR Normal [facility] Comment on above: Performed By: #### A BG ####[facility] Uvdbhfbusm3746 [place] [address]Dr. Nahed Yañez ALLENS TEST Positive Normal [facility] Comment on above: Performed By: #### A BG ####[facility] Dbpjexfrqu6207 [place] [address]Dr. Nahed Yañez Base excess Calc (Bld) [Moles/Vol] 3.5 mmol/L Critically high -2.0-2.0 [facility] Comment on above: Performed By: #### A BG ####[facility] Mvbhiuyoyh1567 [place] [address]Dr. Nahed Yañez BIPAP PRESSURE Normal [facility] Comment on above: Performed By: #### A BG ####[facility] Yzrcajxjbb2389 [place] [address]Dr. Nahed Yañez CO2 [Moles/Vol] 56.3 mmol/L Critically high 23.0-28.0 [facility] Comment on above: Performed By: #### A BG ####[facility] Gyfhzjywvy1273 [place] [address]Dr. Nahed Yañez CPAP Normal [facility] Comment on above: Performed By: #### A BG ####[facility] Mxkaetfpmm1757 [place] [address]Dr. Nahed Yañez FIO2 Normal [facility] Comment on above: Performed By: #### A BG ####[facility] Nkoipvxekp9344 [place] [address]Dr. Nahed Yañez HCO3 (Bld) [Moles/Vol] 26.8 mmol/L Critically high 22.0-26 .0 [facility] Comment on above: Performed By: #### A BG ####[facility] Vdbpzvpkdj24[address] [place], [place] [address]Dr. Nahed Yañez LPM Normal [facility] Comment on above: Performed By: #### A BG ####[facility] Nhqmnewytw44[address] [place], [place] [address]Dr. Nahed Yañez MINUTE VOLUME Normal [facility] Comment on above: Performed By: #### A BG ####[facility] Irmzghivck33[address] [place], [place] [address]Dr. Nahed Yañez Oxygen (Bld) [Partial pressure] 51.8 mm[Hg] Critically low 80.0-100.0 [facility] Comment on above: Performed By: #### A BG ####[facility] Nygzlkuqhc5[address] [place], [place] [address]Dr. Nahed Yañez Oxygen saturation in Blood 86.3 % Critically low 95.0-100.0 [facility] Comment on above: Performed By: #### A BG ####[facility] Xhgtzwxbgu6397[address] [place], [place] [address]Dr. Nahed Yañez PCO2 43.8 mmHg Normal 35.0-45.0 [facility] Comment on above: Performed By: #### A BG ####[facility] Oapjphsfvd228[address] [place], [place] [address]Dr. Nahed Yañez PEEP Normal [facility] Comment on above: Performed By: #### A BG ####[facility] Ylikmsnkdl137[address] [place], [place] [address]Dr. Nahed Yañez pH (Bld) 7.415 [pH] Normal 7.350-7.450 [facility] Comment on above: Performed By: #### A BG ####[facility] Jrfwmtrtll034[address] [place], [place] [address]Dr. Nahed Yañez PIP [facility] Comment on above: Performed By: #### A BG ####[facility] Okaplpvsoh11[address] [place], [place] [address]Dr. Nahed Yañez PS [facility] Comment on above: Performed By: #### A BG ####[facility] Vzdaskolod1086 [place] [address]Dr. Nahed Yañez PUNCTURE SITE RR Normal [facility] Comment on above: Performed By: #### A BG ####[facility] Mdqjnirtym3723 [place] [address]Dr. Nahed Yañez RATE Normal [facility] Comment on above: Performed By: #### A BG ####[facility] Vqhiujzdst5319 [place] [address]Dr. Nahed Yañez VENT MODE Normal [facility] Comment on above: Performed By: #### A BG ####[facility] Rsmuquthmr8772 [place] [address]Dr. Nahed Yañez VT [facility] Comment on above: Performed By: #### A BG ####[facility] Pqbfgqrnsh8361 [place] [address]Dr. Nahed Yañez BNPon 2 Natriuretic peptide B (Bld) [Mass/Vol] 69986.0 pg/mL Critically high <=900.0 [facility] Comment on above: Performed By: #### T 4, TSH, BNP, CMADM ####[facility] Zitugwwmcu[address] [place], [place] [address]Dr. Nahed Yañez CARDIAC FRANCISCO 3-6on 2 CK [Catalytic activity/Vol] 91 U/L Normal 26-192 [facility] Comment on above: Performed By: #### C MREP ####[facility] Ugdvzoyywp0040 [place] [address]Dr. Nahed Yañez CK.MB [Mass/Vol] 7.32 ng/mL Critically high <=3.60 [facility] Comment on above: Result Comment: test repeated critical value verified Performed By: #### C MREP ####[facility] Bmiqyxltbh4[address] [place], [place] [address]Dr. Nahed Yañez HSTROP 2823.1 pg/mL Critically high 4.0-51.3 [facility] Comment on above: Result Comment: CUT- OFF POINTS HAVE BEEN ESTABLISHED BASED ON THE FOURTH UNIVERSAL DEFINITIONS OF MYOCARDIALINFARCTION. THE UPPER REFERENCE LIMIT (URL) OF TROPONIN, DEFINED THE 99TH PERCENTILE OFcTnI DISTRIBUTION IN A REFERENCE POPULATION, HAS BEEN CONFIRMED THE DECISION THRESHOLDFOR OR DIAGNOSIS.test repeated critical value verified Performed By: #### C MREP ####[facility] Txnkzupftr6519 [place] [address]Dr. Nahed Yañez CARDIAC FRANCISCO ADMITon 022 CK [Catalytic activity/Vol] 85 U/L Normal 26-192 [facility] Comment on above: Performed By: #### T 4, TSH, BNP, CMADM ####[facility] Nbjgsgodgr5342 [place] [address]Dr. Nahed Yañez CK.MB [Mass/Vol] 6.44 ng/mL Critically high <=3.60 [facility] Comment on above: Performed By: #### T 4, TSH, BNP, CMADM ####[facility] Pgfjphgbly4395 [place] [address]Dr. Nahed Yañez HSTROP 3194.8 pg/mL Critically high 4.0-51.3 [facility] Comment on above: Result Comment: CUT- OFF POINTS HAVE BEEN ESTABLISHED BASED ON THE FOURTH UNIVERSAL DEFINITIONS OF MYOCARDIALINFARCTION. THE UPPER REFERENCE LIMIT (URL) OF TROPONIN, DEFINED THE 99TH PERCENTILE OFcTnI DISTRIBUTION IN A REFERENCE POPULATION, HAS BEEN CONFIRMED THE DECISION THRESHOLDFOR OR DIAGNOSIS. Performed By: #### T 4, TSH, BNP, CMADM ####[facility] Eqotchmlzv2310 [place] [address]Dr. Nahed Yañez ANDRE 57 ng/mL Normal 9-82 [facility] Comment on above: Performed By: #### T 4, TSH, BNP, CMADM ####[facility] Ilfzavcgdu2046 [place] [address]Dr. Nahed Yañez CBC AUTO DIFFon 10-31-2021 BASO # 0.0 103/ul Normal 0.0-0.1 [facility] Comment on above: Performed By: #### C BC ####[facility] Qrxavlpzcx7060 [place] [address]Dr. Nahed Yañez Basophils/100 WBC (Bld) 0.2 % Normal 0.2-2.0 [facility] Comment on above: Performed By: #### C BC ####[facility] Axvgtuqulh2255[address] [place], [place] [address]Dr. Nahed Yañez EO # 0.0 103/ul Normal 0.0-0.7 [facility] Comment on above: Performed By: #### C BC ####[facility] Imcbyhxcio835[address] [place], [place] [address]Dr. Nahed Yañez Eosinophils/100 WBC (Bld) 0.1 % Critically low 0.9-7.0 [facility] Comment on above: Performed By: #### C BC ####[facility] Hlaipefxbk429[address] [place], [place] [address]Dr. Nahed Yañez Erythrocyte distribution width (RBC) [Ratio] 14.8 % Normal 11.0-15.0 [facility] Comment on above: Performed By: #### C BC ####[facility] Poppultsok[address]364[address] [place], [place] [address]Dr. Nahed Yañez Hematocrit (Bld) [Volume fraction] 44.4 % Normal 36.0-48.0 [facility] Comment on above: Performed By: #### C BC ####[facility] Uqqzioxwjh5758[address] [place], [place] [address]Dr. Nahed Yañez Hemoglobin (Bld) [Mass/Vol] 14.1 g/dL Normal 12.0-16.0 [facility] Comment on above: Performed By: #### C BC ####[facility] Sclnzbxrgy940[address] [place], [place] [address]DrShaun Yañez IG # 0.04 10e3/ul Critically high 0.00-0.03 [facility] Comment on above: Performed By: #### C BC ####[facility] Knatcjdtzb754[address] [place], [place] [address]Dr. Nahed Yañez IG % 0.3 % Normal 0.0-0.5 [facility] Comment on above: Performed By: #### C BC ####[facility] Bcsqobmkwh6495[address] [place], [place] [address]DrShaun Yañez LYMPH # 1.4 103/ul Normal 1.2-3.8 [facility] Comment on above: Performed By: #### C BC ####[facility] Bqxkelwctu2026 [place] [address]Dr. Nahed Yañez Lymphocytes/100 WBC (Bld) 10.4 % Critically low 20.5-60.0 [facility] Comment on above: Performed By: #### C BC ####[facility] Vtywiwffoz954[address] [place], [place] [address]Dr. Nahed Yañez MANUAL DIFF REQ NO Normal [facility] Comment on above: Performed By: #### C BC ####[facility] Czadqxxhfu8398 [place] [address]Dr. Nahed Yañez MCH (RBC) [Entitic mass] 28.1 pg Normal 26.7-34.0 [facility] Comment on above: Performed By: #### C BC ####[facility] Emqwlpsbdh9824[address] [place], [place] [address]Dr. Nahed Yañez MCHC (RBC) [Mass/Vol] 31.8 g/dL Normal 29.9-35.2 [facility] Comment on above: Performed By: #### C BC ####[facility] Kkvnuntdrh199[address] [place], [place] [address]Dr. Nahed Yañez MCV (RBC) [Entitic vol] 88.4 fL Normal 81.0-99.0 [facility] Comment on above: Performed By: #### C BC ####[facility] Jefovpzvjt9418[address] [place], [place] [address]Dr. Nahed Yañez MONO # 0.8 103/ul Normal 0.3-0.8 [facility] Comment on above: Performed By: #### C BC ####[facility] Qlicnzqtiv7349[address] [place], [place] [address]Dr. Nahed Yañez Monocytes/100 WBC (Bld) 6.0 % Normal 1.7-12.0 [facility] Comment on above: Performed By: #### C BC ####[facility] Ylorxmzaly28[address] [place], [place] [address]Dr. Nahed Yañez NEUT # 10.9 103/ul Critically high 1.4-6.5 [facility] Comment on above: Performed By: #### C BC ####[facility] Evkgcwekrf4983 [place] [address]Dr. Nahed Yañez Neutrophils/100 WBC (Bld) 83.0 % Critically high 43.0-75.0 [facility] Comment on above: Performed By: #### C BC ####[facility] Cssxxdwytk4466 [place] [address]Dr. Nahed Yañez Platelet mean volume (Bld) [Entitic vol] 10.8 fL Normal 9.5-13.5 [facility] Comment on above: Performed By: #### C BC ####[facility] Ypsapcgxef919[address] [place], [place] [address]Dr. Nahed Yañez PLT 402 103/ul Normal 150-450 [facility] Comment on above: Performed By: #### C BC ####[facility] Mpwicniomi75[address] [place], [place] [address]Dr. Nahed Yaeñz RBC 5.02 106/ul Normal 4.20-5.40 [facility] Comment on above: Performed By: #### C BC ####[facility] Nvizmbzpcv9[address] [place], [place] [address]Dr. Nahed Yañez WBC 13.1 103/ul Critically high 4.0-11.0 [facility] Comment on above: Performed By: #### C BC ####[facility] Mpdjrbsdpx9314[address] [place], [place] [address]Dr. Nahed Otilio CTA CHEST WO W CONon 022 CTA CHEST WO W CON Normal [facility] CULTURE BLOODon 10-31-2021 Microscopic examination of blood, culture Culture Observations: NO GROWTH AT 5 DAYS. Normal [facility] Comment on above: Performed By: #### B LDCX2 ####[facility] Rvneoybkyd4687 [place] [address]Dr. Nahed Otilio Microscopic examination of blood, culture Culture Observations: NO GROWTH AT 5 DAYS. Normal [facility] Comment on above: Performed By: #### B LDCX1 ####[facility] Pdvqfnnkwe9305 [place] [address]Dr. Nahed Yañez Covid-19 PCR (CVDTB)on 10-13 SARS-CoV-2 (COVID-19) RNA MIRNA+probe Ql (Unsp spec) Not detected Normal NOT DETECTED [facility] Comment on above: Result Comment: When diagnostic [...] for this test is supported by the [place] of Health and Human Service's declaration that [...] be used). Performed By: #### C VDTB ####[facility] Mruldqkxtu065[address] [place], [place] [address]Dr. Nahed Yañez ECHO LIMITED STUDYon 022 ECHO LIMITED STUDY Normal [facility] ER URINE PROFILEon 2 Bilirubin Ql (U) SMALL Abnormal NEGATIVE [facility] Comment on above: Performed By: #### YARELIS DOVE ####[facility] Mnrmwxsjoh5665 [place] [address]Dr. Nahed Yañez Clarity (U) CLEAR Normal CLEAR [facility] Comment on above: Performed By: #### YARELIS DOVE ####[facility] Qptnmlrgmm380[address] [place], [place] [address]Dr. Nahed Yañez Color (U) YELLOW Normal YELLOW [facility] Comment on above: Performed By: #### YARELIS DOVE ####[facility] Wgybwxvgno[address] [place], [place] [id number]. Nahed BORREGO A micrscopic examination will be performed if indicated. Normal [facility] Comment on above: Performed By: #### NUNU DOVERO ####[facility] Zqffwpdsig9992 [place] [address]Dr. Nahed Yañez Glucose Ql (U) Negative Normal NEGATIVE [facility] Comment on above: Performed By: #### MYLA DOVEICRO ####[facility] Pdbyzroegd8858 [place] [address]Dr. Nahed Yañez Hemoglobin Ql (U) TRACE-INTACT Abnormal NEGATIVE [facility] Comment on above: Performed By: #### NUNU DOVERO ####[facility] Rsiaegswna9109[address] [place], [place] [address]Dr. Nahed Yañez Ketones Ql (U) 15 mg/dl Abnormal NEGATIVE [facility] Comment on above: Performed By: #### NUNU DOVERO ####[facility] Sbkiyfvnxj280[address] [place], [place] [address]Dr. Nahed Yañez LEUKOCYTES TRACE Abnormal NEGATIVE [facility] Comment on above: Performed By: #### NUNU DOVERO ####[facility] Itdlzgztbu035[address] [place], [place] [address]Dr. Nahed Yañez Nitrite Ql (U) Negative Normal NEGATIVE [facility] Comment on above: Performed By: #### MYLA DOVEICRO ####[facility] Nkdendiytq5853 [place] [address]Dr. Nahed Yañez pH (U) 6.5 [pH] Normal 5-9 [facility] Comment on above: Performed By: #### NUNU DOVERO ####[facility] Feszlvprrf992[address] [place], [place] [address]Dr. Nahed Yañez Protein (U) [Mass/Vol] 30 mg/dL Abnormal NEGAT JOSEPHINE/ TRACE [facility] Comment on above: Performed By: #### MYLA DOVEICRO ####[facility] Ggimghgdpx[address] [place], [place] [address]Dr. Nahed Yañez SPEC GRAVITY 1.025 Normal 1.005-<=1.02 5 [facility] Comment on above: Performed By: #### YARELIS DOVE ####[facility] Cfkpoedqhy7912[address] [place], [place] [address]Dr. Nahed Yañez UR MICRO IND INDICATED Normal [facility] Comment on above: Performed By: #### YARELIS DOVE ####[facility] Ehlqtnflfk8920[address] [place], [place] [address]Dr. Nahed Yañez Urobilinogen Qn (U) 0.2 {Alem'U}/dL Normal 0.2 - 1. 0 [facility] Comment on above: Performed By: #### YARELIS DOVE ####[facility] Xnsbrkqqfs935[address] [place], [place] [address]Dr. Nahed Yañez INFLUENZA A AND B AGon 10-31 INFLUANEGH SEE BELOW Normal [facility] Comment on above: Result Comment: Nega tive for Flu A protein angiten. Infection due to Flu A cannot be ruled out. Flu A angiten in the sample may be below the detection limit of the test. Performed By: #### I NFLUAB ####[facility] Yuailuialo[address] [place], [place] [address]Dr. Nahed Yañez INFLUBNEGH SEE BELOW Normal [facility] Comment on above: Result Comment: Nega tive for Flu B protein antigen. Infection due to Flu B cannot be ruled out. Flu B antigen in the sample may be below the detection limit of the test. Performed By: #### I NFLUAB ####[facility] Ytmmopbzwk[address] [place], [place] [address]Dr. Nahed Yañez INFLUENZA A AG Negative Normal NEGATIVE SEE COMMENT [facility] Comment on above: Performed By: #### I NFLUAB ####[facility] Lttjnkqzll6327[address] [place], [place] [address]Dr. Nahed Yañez INFLUENZA B AG Negative Normal NEGATIVE SEE COMMENT [facility] Comment on above: Performed By: #### I NFLUAB ####[facility] Huujypzvxq409[address] [place], [place] [address]Dr. Nahed Yañez INTERNAL CONTROLS Within Normal Limits Normal Wi thin Normal Limits [facility] Comment on above: Performed By: #### I NFLUAB ####[facility] Cxepwofadx9154 [place] [address]Dr. Nahed Yañez LACTATE/LACTIC ACIDon 2021 Lactate [Moles/Vol] 1.3 mmol/L Normal 0.4-1.[address] [facility] Comment on above: Performed By: #### L ACT ####[facility] Qofkiawnki0899[address] [place], [place] [address]Dr. Nahed Yañez PROF 14(COMP METB)on 022 Albumin [Mass/Vol] 4.3 g/dL Normal 3.4-5.0 [facility] Comment on above: Performed By: #### C MP ####[facility] Jhndeaojnq5138 [place] [address]Dr. Nahed Yañez Albumin/Globulin [Mass ratio] 1.2 {ratio} Normal [facility] Comment on above: Performed By: #### C MP ####[facility] Fzexfyofzg85[address] [place], [place] [address]Dr. Nahed Yañez ALP [Catalytic activity/Vol] 77 U/L Normal 46-116 [facility] Comment on above: Performed By: #### C MP ####[facility] Xngambuifp684[address] [place], [place] [address]Dr. Nahed Yañez ALT [Catalytic activity/Vol] 25 U/L Normal 14-59 [facility] Comment on above: Performed By: #### C MP ####[facility] Yqzrwffgqh7670 [place] [address]Dr. Nahed Yañez Anion gap [Moles/Vol] 15.6 mmol/L Normal [facility] Comment on above: Performed By: #### C MP ####[facility] Edkfklcfqh[address] [place], [place] [address]Dr. Nahed Yañez AST [Catalytic activity/Vol] 26 U/L Normal 15-37 [facility] Comment on above: Performed By: #### C MP ####[facility] Wgwkfmfzae74[address] [place], [place] [address]Dr. Nahed Yañez Bilirubin [Mass/Vol] 0.6 mg/dL Normal 0.2-1.0 [facility] Comment on above: Performed By: #### C MP ####[facility] [facility] [address]asgf[address] [place] [address]Dr. Nahed Yañez Calcium [Mass/Vol] 10.0 mg/dL Normal 8.5-10.1 [facility] Comment on above: Performed By: #### C MP ####[facility] Nepgseaisj[address] [place] [address]Dr. Nahed Yañez Chloride [Moles/Vol] 101 mmol/L Normal 98-107 [facility] Comment on above: Performed By: #### C MP ####[facility] Lguikcyuzf[address] [place], [place] [address]Dr. Nahed Yañez CO2 [Moles/Vol] 29.0 mmol/L Normal 21.0-32.0 [facility] Comment on above: Performed By: #### C MP ####[facility] Prxolbmzrm33[address] [place], [place] [address]Dr. Nahed Yañez Creatinine [Mass/Vol] 0.89 mg/dL Normal 0.55-1.02 [facility] Comment on above: Performed By: #### C MP ####[facility] Wpnoxkphcc[address] [place], [place] [address]Dr. Nahed Yañez EGFR-AF POLISH >60 Normal >=60 [facility] Comment on above: Performed By: #### C MP ####[facility] Ahdppjfeaf[address] [place] [address]Dr. Nahed Otiilo EGFR-NON AF POLISH >60 Normal >=60 [facility] Comment on above: Performed By: #### C MP ####[facility] Hhrxabwnws[address] [place] [address]Dr. Nahed Otilio Globulin (S) [Mass/Vol] 3.7 g/dL Normal [facility] Comment on above: Performed By: #### C MP ####[facility] Qrrnuwmqgj1025[address] [place], [place] [address]Dr. Rosemarieashley Otilio Glucose [Mass/Vol] 182 mg/dL Critically high 74-106 [facility] Comment on above: Performed By: #### C MP ####[facility] Ttuceumezh[address] [place] [address]Dr. Nahed Yañez Potassium [Moles/Vol] 3.6 mmol/L Normal 3.5-5.1 [facility] Comment on above: Performed By: #### C MP ####[facility] Zvxnctmuck[address] [place], [place] [address]Dr. Nahed Yañez Protein [Mass/Vol] 8.0 g/dL Normal 6.4-8.2 [facility] Comment on above: Performed By: #### C MP ####[facility] Egfjeejyoz[address] [place], [place] [address]Dr. Nahed Yañez Sodium [Moles/Vol] 142 mmol/L Normal 136-145 [facility] Comment on above: Performed By: #### C MP ####[facility] Uqmhhzfupt69[address] [place], [place] [address]Dr. Nahed Yañez Urea nitrogen [Mass/Vol] 8.0 mg/dL Normal 7.0-18.0 [facility] Comment on above: Performed By: #### C MP ####[facility] Dtwanmvecz4[address] [place], [place] [address]Dr. Nahed Yañez Urea nitrogen/Creatinine [Mass ratio] 9.0 mg/mg Normal [facility] Comment on above: Performed By: #### C MP ####[facility] Jkrwhphdwd544[address] [place], [place] [address]Dr. Nahed Yañez T4on 10-31-2021 T4 [Mass/Vol] 8.10 ug/dL Normal 4.80-13.90 [facility] Comment on above: Performed By: #### T 4, TSH, BNP, CMADM ####[facility] Bgpgpdsams[address] [place], [place] [address]Dr. Nahed Yañez TSHon 10-31-2021 TSH 1.088 uIU/mL Normal 0.358-3.740 [facility] Comment on above: Performed By: #### T 4, TSH, BNP, CMADM ####[facility] Qeigpxgwin6[address] [place] [address]Dr. Nahed Yañez URINE MICROSCOPIC ONLYon BACTERIA TRACE Abnormal NONE SEEN [facility] Comment on above: Performed By: #### YARELIS DOVE ####[facility] Szxdfcfzss1714[address] [place], [place] [address]Dr. Nahed Yañez Bacteria identified Cx Nom (U) NOT INDICATED Normal [facility] Comment on above: Performed By: #### NUNU DOVERO ####[facility] Joxtzgbuqu904[address] [place], [place] [address]Dr. Nahed aYñez CAST NONE SEEN Normal NONE SEEN [facility] Comment on above: Performed By: #### YARELIS DOVE ####[facility] Gtuaitzpsi126[address] [place], [place] [address]Dr. Nahed Yañez Crystals LM Nom (Urine sed) NONE SEEN Normal NONE SEEN [facility] Comment on above: Performed By: #### NUNU DOVERO ####[facility] Lzoxgtaohj77[address] [place], [place] [address]Dr. Nahed Yañez Epithelial cells LM Ql (Urine sed) MODERATE Abnormal NONE SEEN /RARE [facility] Comment on above: Performed By: #### NUNU DOVERO ####[facility] Jzxtaokmoq87[address] [place], [place] [address]Dr. Nahed Yañez MUCOUS SMALL Abnormal NONE SEEN [facility] Comment on above: Performed By: #### NUNU DOVERO ####[facility] Rzcfnldqwb8937[address] [place], [place] [address]Dr. Nahed Yañez RBC 2-5 Abnormal 0-2 [facility] Comment on above: Performed By: #### NUNU DOVERO ####[facility] Srnwgfhddw4785[address] [place], [place] [address]Dr. Nahed Yañez WBC 2-5 Abnormal NONE SEEN [facility] Comment on above: Performed By: #### NUNU DOVERO ####[facility] Wljfqyhorb56364[address] [place], [place] [address]Dr. Nahed Yañez XR CHEST 2 Von 10-31-2021 XR CHEST 2 V Normal [facility] CULTURE URINEon 10-30-2021 CULTURE URINE Culture Observations : MODERATE GROWTH OF MIXED GENITAL MIGUEL. NO POTENTIAL PATHOGENS SEEN. Normal [facility] Comment on above: Performed By: #### U RCX ####[facility] Tgbytpyvhk36[address] [place] [id number]. Nahed Yañez US JESSEE DOP LEG BILon 022 US JESSEE DOP LEG MOHAN Normal [facility] CARDIAC FRANCISCO ADMITon 022 CK [Catalytic activity/Vol] 16 U/L Critically low 26-192 [facility] Comment on above: Performed By: #### C RENZO, CMADM ####[facility] Fnuwvgbgni73[address] [place] [address]Dr. Nahed Yañez CK.MB [Mass/Vol] 0.56 ng/mL Normal <=3.60 [facility] Comment on above: Performed By: #### C RENZO, CMADM ####[facility] Zrohtsvpiz[address] [place] [address]Dr. Nahed Yañez HSTROP 44.3 pg/mL Normal 4.0-51.3 [facility] Comment on above: Result Comment: CUT- OFF POINTS HAVE BEEN ESTABLISHED BASED ON THE FOURTH UNIVERSAL DEFINITIONS OF MYOCARDIALINFARCTION. THE UPPER REFERENCE LIMIT (URL) OF TROPONIN, DEFINED THE 99TH PERCENTILE OFcTnI DISTRIBUTION IN A REFERENCE POPULATION, HAS BEEN CONFIRMED THE DECISION THRESHOLDFOR OR DIAGNOSIS. Performed By: #### C RENZO, CMADM ####[facility] Ktkylndrjb9[address] [place] [address]Dr. Nahed Yañez ANDRE 42 ng/mL Normal 9-82 [facility] Comment on above: Performed By: #### C RENZO, CMADM ####[facility] Pdbwhveyyr[address] [place] [id number]. Nahed Yañez CBC AUTO DIFFon 09-07-2021 BASO # 0.0 103/ul Normal 0.0-0.1 [facility] Comment on above: Performed By: #### C BC ####[facility] Juzxromwqb8[address] [place] [id number]. Nahed Yañez Basophils/100 WBC (Bld) 0.4 % Normal 0.2-2.0 [facility] Comment on above: Performed By: #### C BC ####[facility] Gnarsfvoax75[address] [place] [address]Dr. Nahed Yañez EO # 0.2 103/ul Normal 0.0-0.7 [facility] Comment on above: Performed By: #### C BC ####[facility] Gxalsugjwa[address] [place], [place] [address]Dr. Nahed Yañez Eosinophils/100 WBC (Bld) 2.4 % Normal 0.9-7.0 [facility] Comment on above: Performed By: #### C BC ####[facility] Ujyntufsgs1387[address] [place], [place] [address]Dr. Nahed Yañez Erythrocyte distribution width (RBC) [Ratio] 15.1 % Critically high 11.0-15.0 [facility] Comment on above: Performed By: #### C BC ####[facility] Pzoayqcakt8349[address] [place], [place] [address]DrShaun Yañez Hematocrit (Bld) [Volume fraction] 42.6 % Normal 36.0-48.0 [facility] Comment on above: Performed By: #### C BC ####[facility] Qrhjyqacrf8108[address] [place], [place] [address]Dr. Nahed Yañez Hemoglobin (Bld) [Mass/Vol] 13.4 g/dL Normal 12.0-16.0 [facility] Comment on above: Performed By: #### C BC ####[facility] Xhrbunukwr220[address] [place], [place] [address]DrShaun Yañez IG # 0.33 10e3/ul Critically high 0.00-0.03 [facility] Comment on above: Performed By: #### C BC ####[facility] Zivzbfqlum784[address] [place], [place] [address]Dr. Nahed Yañez IG % 3.9 % Critically high 0.0-0.5 [facility] Comment on above: Performed By: #### C BC ####[facility] Crpzvpnthb9420[address] [place], [place] [address]Dr. Nahed Yañez LYMPH # 2.6 103/ul Normal 1.2-3.8 [facility] Comment on above: Performed By: #### C BC ####[facility] Mlyyruwjte5[address] [place] [address]Dr. Nahed Yañez Lymphocytes/100 WBC (Bld) 30.3 % Normal 20.5-60.0 [facility] Comment on above: Performed By: #### C BC ####[facility] Kriczhvoqe1168[address] [place], [place] [address]Dr. Nahed Yañez MANUAL DIFF REQ NO Normal [facility] Comment on above: Performed By: #### C BC ####[facility] Bdfpimntem995[address] [place], [place] [address]Dr. Nahed Yañez MCH (RBC) [Entitic mass] 28.6 pg Normal 26.7-34.0 [facility] Comment on above: Performed By: #### C BC ####[facility] Ilrbtmvqwe6201[address] [place], [place] [address]Dr. Nahed Yañez MCHC (RBC) [Mass/Vol] 31.5 g/dL Normal 29.9-35.2 [facility] Comment on above: Performed By: #### C BC ####[facility] Gdxjjejtqm923[address] [place], [place] [address]Dr. Nahed Yañez MCV (RBC) [Entitic vol] 90.8 fL Normal 81.0-99.0 [facility] Comment on above: Performed By: #### C BC ####[facility] Nirjvuyyor8[address] [place], [place] [address]Dr. Nahed Yañez MONO # 0.7 103/ul Normal 0.3-0.8 [facility] Comment on above: Performed By: #### C BC ####[facility] Mygenamuxh329[address] [place], [place] [address]Dr. Nahed Yañez Monocytes/100 WBC (Bld) 8.0 % Normal 1.7-12.0 [facility] Comment on above: Performed By: #### C BC ####[facility] Pmlbtwcnpu1865[address] [place], [place] [address]Dr. Nahed Yañez NEUT # 4.7 103/ul Normal 1.4-6.5 [facility] Comment on above: Performed By: #### C BC ####[facility] Tskoclmqvb5484 [place] [address]DrShaun Yañez Neutrophils/100 WBC (Bld) 55.0 % Normal 43.0-75.0 [facility] Comment on above: Performed By: #### C BC ####[facility] Acuezujhmq2753 [place] [address]DrShaun Yañez Platelet mean volume (Bld) [Entitic vol] 8.9 fL Critically low 9.5-13.5 [facility] Comment on above: Performed By: #### C BC ####[facility] Ejezxpiume[address] [place], [place] [address]DrShaun Yañez PLT 270 103/ul Normal 150-450 [facility] Comment on above: Performed By: #### C BC ####[facility] Sfjsxbyjcd2789[address] [place], [place] [address]DrShaun Yañez RBC 4.69 106/ul Normal 4.20-5.40 [facility] Comment on above: Performed By: #### C BC ####[facility] Whqxmegpkq5028[address] [place], [place] [address]DrShaun Yañez WBC 8.5 103/ul Normal 4.0-11.0 [facility] Comment on above: Performed By: #### C BC ####[facility] Lhkrvrsagc0[address] [place], [place] [address]DrShaun Yañez PROF 14(COMP METB)on 022 Albumin [Mass/Vol] 2.7 g/dL Critically low 3.4-5.0 [facility] Comment on above: Performed By: #### ERICK Whyte MP ####[facility] Khcfwokoao7664[address] [place], [place] [address]DrShaun Yañez Albumin/Globulin [Mass ratio] 0.8 {ratio} Normal [facility] Comment on above: Performed By: #### C ERICK MULLER ####[facility] Zbgsnutptm[address] [place], [place] [address]DrShaun Yañez ALP [Catalytic activity/Vol] 65 U/L Normal 46-116 [facility] Comment on above: Performed By: #### C RENZO, ERICK ####[facility] Jqfsndabfb43[address] [place] [address]Dr. Nahed Yañez ALT [Catalytic activity/Vol] 27 U/L Normal 14-59 [facility] Comment on above: Performed By: #### C RENZO, ERICK ####[facility] Yniebtxlfu7216 [place] [address]Dr. Nahde Yañez Anion gap [Moles/Vol] 10.3 mmol/L Normal [facility] Comment on above: Performed By: #### C RENZO, ERICK ####[facility] Lkcfuukljx[address] [place] [address]Dr. Nahed Yañez AST [Catalytic activity/Vol] 11 U/L Critically low 15-37 [facility] Comment on above: Performed By: #### C RENZO, ERICK ####[facility] Zwwbaowjml[address] [place], [place] [address]Dr. Nahed Yañez Bilirubin [Mass/Vol] 0.3 mg/dL Normal 0.2-1.0 [facility] Comment on above: Performed By: #### C RENZO, ERICK ####[facility] Iczfrmocsm57[address] [place] [address]Dr. Nahed Yañez Calcium [Mass/Vol] 8.1 mg/dL Critically low 8.5-10.1 [facility] Comment on above: Performed By: #### C RENZO, ERICK ####[facility] Agzfvrewln55[address] [place] [address]Dr. Nahed Yañez Chloride [Moles/Vol] 98 mmol/L Normal 98-107 [facility] Comment on above: Performed By: #### C RENZO, ERICK ####[facility] Jhvqkwlzrj10[address] [place] [address]Dr. Nahed Yañez CO2 [Moles/Vol] 32.5 mmol/L Critically high 21.0-32.0 [facility] Comment on above: Performed By: #### C RENZO, ERICK ####[facility] Xuxzkgwcsh14[address] [place] [id number]. Nahed Yañez Creatinine [Mass/Vol] 0.94 mg/dL Normal 0.55-1.02 [facility] Comment on above: Performed By: #### C RENZO, CMADM ####[facility] Bjkcngzgiv5046 [place] [id number]. Nahed Yañez EGFR-AF POLISH >60 Normal >=60 [facility] Comment on above: Performed By: #### C RENZO, CMADM ####[facility] Laehgzzbzb3021 [place] [id number]. Nahed Yañez EGFR-NON AF POLISH >60 Normal >=60 [facility] Comment on above: Performed By: #### C RENZO, CMAJOSE ####[facility] Zaogefxbxf0[address] [place] [address]Dr. Nahde Yañez Globulin (S) [Mass/Vol] 3.2 g/dL Normal [facility] Comment on above: Performed By: #### C RENZO, CMADM ####[facility] Nbpgllbrub19[address] [place] [address]Dr. Nahed Yañez Glucose [Mass/Vol] 123 mg/dL Critically high 74-106 [facility] Comment on above: Performed By: #### C RENZO, CMADM ####[facility] Sznzwvofma6916 [place] [id number]. Nahed Yañez Potassium [Moles/Vol] 3.8 mmol/L Normal 3.5-5.1 [facility] Comment on above: Performed By: #### C RENZO, CMADM ####[facility] Aivawdaogx3755 [place] [id number]. Nahed Yañez Protein [Mass/Vol] 5.9 g/dL Critically low 6.1-8.2 Th [facility] Comment on above: Performed By: #### C RENZO, CMADM ####[facility] Icalbknssr1038 [place] [id number]. Nahed Yañez Sodium [Moles/Vol] 137 mmol/L Normal 136-145 [facility] Comment on above: Performed By: #### C RENZO, CMADM ####[facility] Dkdzkzkzns6230 [place] [address]Dr. Nahed Yañez Urea nitrogen [Mass/Vol] 20.0 mg/dL Critically high 7.0-18.0 [facility] Comment on above: Performed By: #### C MP, CMADM ####[facility] Nadmjtwhuz275[address] [place], [place] [address]Dr. Nahed Yañez Urea nitrogen/Creatinine [Mass ratio] 21.3 mg/mg Normal [facility] Comment on above: Performed By: #### C MP, CMADM ####[facility] Jvpgalupbc5733[address] [place], [place] [address]Dr. Nahed Yañez BNPon 09-06-2021 Natriuretic peptide B (Bld) [Mass/Vol] 923.0 pg/mL Critically high <=900.0 [facility] Comment on above: Performed By: #### B MP, BNP, HSTROPN ####[facility] Seocfqxtjf29[address] [place], [place] [address]Dr. Nahed Yañez CBC AUTO DIFFon 09-06-2021 BASO # 0.1 103/ul Normal 0.0-0.1 [facility] Comment on above: Performed By: #### C BC ####[facility] Fsrbwrcmxe0159[address] [place], [place] [address]Dr. Rosemarieashley Yañez Basophils/100 WBC (Bld) 0.6 % Normal 0.2-2.0 [facility] Comment on above: Performed By: #### C BC ####[facility] Bvwtijrcns6811[address] [place], [place] [address]Dr. Nahed Otilio EO # 0.3 103/ul Normal 0.0-0.7 [facility] Comment on above: Performed By: #### C BC ####[facility] Iovmmdioux9660[address] [place], [place] [address]Dr. Nahed Otilio Eosinophils/100 WBC (Bld) 3.0 % Normal 0.9-7.0 [facility] Comment on above: Performed By: #### C BC ####[facility] Rdtqrxqxlf49364[address] [place], [place] [address]Dr. Nahed Yañez Erythrocyte distribution width (RBC) [Ratio] 15.0 % Normal 11.0-15.0 [facility] Comment on above: Performed By: #### C BC ####[facility] Eopxqrdjdv9680 [place] [address]Dr. Nahed Yañez Hematocrit (Bld) [Volume fraction] 48.1 % Critically high 36.0-48.0 [facility] Comment on above: Performed By: #### C BC ####[facility] Oipvsqqjkq250[address] [place], [place] [address]Dr. Nahed Yañez Hemoglobin (Bld) [Mass/Vol] 15.5 g/dL Normal 12.0-16.0 [facility] Comment on above: Result Comment: delt a check called to Manisha WALKER Performed By: #### C BC ####[facility] Cynxxgzotm408[address] [place], [place] [address]Dr. Nahed Yañez IG # 0.46 10e3/ul Critically high 0.00-0.03 [facility] Comment on above: Performed By: #### C BC ####[facility] Ylhykdyhiu619[address] [place], [place] [address]Dr. Nahed Yaeñz IG % 4.2 % Critically high 0.0-0.5 [facility] Comment on above: Performed By: #### C BC ####[facility] Upkwzcgbiv8150[address] [place], [place] [address]Dr. Nahed Yañez LYMPH # 2.2 103/ul Normal 1.2-3.8 [facility] Comment on above: Performed By: #### C BC ####[facility] Wzkjqafnwm980[address] [place], [place] [address]Dr. Nahed Yañez Lymphocytes/100 WBC (Bld) 20.6 % Normal 20.5-60.0 [facility] Comment on above: Performed By: #### C BC ####[facility] Mjsyhntmyb7732[address] [place], [place] [address]Dr. Nahed Yañez MANUAL DIFF REQ NO Normal [facility] Comment on above: Performed By: #### C BC ####[facility] Letenqxjxb8259 [place] [id number]. Nahed Yañez MCH (RBC) [Entitic mass] 28.2 pg Normal 26.7-34.0 [facility] Comment on above: Performed By: #### C BC ####[facility] Cqvowsxnqt8527 [place] [address]Dr. Nahed Yañez MCHC (RBC) [Mass/Vol] 32.2 g/dL Normal 29.9-35.2 [facility] Comment on above: Performed By: #### C BC ####[facility] Lttqgsfqeu168[address] [place], [place] [address]Dr. Nahed Yañez MCV (RBC) [Entitic vol] 87.5 fL Normal 81.0-99.0 [facility] Comment on above: Performed By: #### C BC ####[facility] Rgqfvuhsep[address] [place], [place] [address]Dr. Nahed Yañez MONO # 0.7 103/ul Normal 0.3-0.8 [facility] Comment on above: Performed By: #### C BC ####[facility] Ofpcinhfgc114[address] [place], [place] [address]Dr. Nahed Otilio Monocytes/100 WBC (Bld) 6.4 % Normal 1.7-12.0 [facility] Comment on above: Performed By: #### C BC ####[facility] Fnegamiujp[address] [place], [place] [address]Dr. Nahed Yañez NEUT # 7.1 103/ul Critically high 1.4-6.5 [facility] Comment on above: Performed By: #### C BC ####[facility] Hoasrhkofk6[address] [place], [place] [address]Dr. Nahed Otilio Neutrophils/100 WBC (Bld) 65.2 % Normal 43.0-75.0 [facility] Comment on above: Performed By: #### C BC ####[facility] Fxnttvhqnk258[address] [place], [place] [address]Dr. Nahed Yañez Platelet mean volume (Bld) [Entitic vol] 8.9 fL Critically low 9.5-13.5 [facility] Comment on above: Performed By: #### C BC ####[facility] [address]re[address] [place], [place] [address]Nu. Nahed Yañez PLT 390 103/ul Normal 150-450 [facility] Comment on above: Performed By: #### C BC ####[facility] Jefrdfrxsj5671 [place], [place] [address]Mg. Nahed Yañez RBC 5.50 106/ul Critically high 4.20-5.40 The [facility] Comment on above: Performed By: #### C BC ####[facility] Rrauqxsljo0234 [place] [id number]. Nahed Yañez WBC 10.8 103/ul Normal 4.0-11.0 [facility] Comment on above: Performed By: #### C BC ####[facility] Udnmoyhqot3656 [place] [id number]. Nahed Yañez CULTURE BLOODon 09-06-2021 Microscopic examination of blood, culture Culture Observations: NO GROWTH AT 5 DAYS. Isolate 1 BC_BA_NA Normal [facility] Comment on above: Performed By: #### B LDCX2 ####[facility] Lyzrscxynr5003 [place] [id number]. Nahed Yañez Microscopic examination of blood, culture Culture Observations: NO GROWTH AT 5 DAYS. Normal [facility] Comment on above: Performed By: #### B LDCX1 ####[facility] Amgxczeeon07[address] [place] [id number]. Nahed Yañez Covid-19 PCR (CVDTB)on 08-13 SARS-CoV-2 (COVID-19) RNA MIRNA+probe Ql (Unsp spec) Not detected Normal NOT DETECTED [facility] Comment on above: Result Comment: When diagnostic [...] for this test is supported by the [place] of Health and Human Service's declaration that [...] be used). Performed By: #### C VDTBH ####[facility] Sfbbxotdqx[address] [place], [place] [address]Dr. Nahed Yañez LACTATE/LACTIC ACIDon 2021 Lactate [Moles/Vol] 0.1 mmol/L Critically low 0.4-2.0 [facility] Comment on above: Performed By: #### L ACT ####[facility] Ozwakfjskv[address] [place], [place] [address]Dr. Nahed Yañez Lactate [Moles/Vol] 1.5 mmol/L Normal 0.4-2.[address] [facility] Comment on above: Performed By: #### L ACT ####[facility] Wthaxbdbew[address] [place], [place] [address]Dr. Nahed Yañez POINT OF CARE GLUCOSEon 08-13 Glucose [Mass/Vol] 201 mg/dL Critically high 74-106 [facility] Comment on above: Performed By: #### P OCGLUC ####[facility] Cmhvgbqgol[address] [place], [place] [address]Dr. Nahed Yañez PROF CHEM 8 (BAS METB)on Anion gap [Moles/Vol] 14.8 mmol/L Normal [facility] Comment on above: Performed By: #### B MP, BNP, HSTROPN ####[facility] Yleasefetq[address] [place], [place] [address]Dr. Nahed Yañez Calcium [Mass/Vol] 8.8 mg/dL Normal 8.5-10.1 [facility] Comment on above: Performed By: #### B MP, BNP, HSTROPN ####[facility] Mabhwmflzb43[address] [place], [place] [address]Dr. Nahed Yañez Chloride [Moles/Vol] 95 mmol/L Critically low 98-107 [facility] Comment on above: Performed By: #### B MP, BNP, HSTROPN ####[facility] Wohugflwfq9[address] [place] [address]Dr. Nahed Yañez CO2 [Moles/Vol] 28.7 mmol/L Normal 21.0-32.0 [facility] Comment on above: Performed By: #### B MP, BNP, HSTROPN ####[facility] Ilhywjrvxx[address] [place] [address]Dr. Nahed Yañez Creatinine [Mass/Vol] 0.98 mg/dL Normal 0.55-1.02 [facility] Comment on above: Performed By: #### B MP, BNP, HSTROPN ####[facility] [address] [place], [place] [address]Dr. Nahed Yañez EGFR-AF POLISH >60 Normal >=60 [facility] Comment on above: Performed By: #### B MP, BNP, HSTROPN ####[facility] [address] [place], [place] [address]Dr. Nahed Yañez EGFR-NON AF POLISH 58 mL/min/1.73m2 Critically low >=60 [facility] Comment on above: Performed By: #### B MP, BNP, HSTROPN ####[facility] [address] [place] [address]Dr. Nahed Yañez Glucose [Mass/Vol] 150 mg/dL Critically high 74-106 [facility] Comment on above: Performed By: #### B MP, BNP, HSTROPN ####[facility] [address] [place] [address]Dr. Rosemarieashley Yañez Potassium [Moles/Vol] 4.5 mmol/L Normal 3.5-5.1 [facility] Comment on above: Performed By: #### B MP, BNP, HSTROPN ####[facility] [address] [place] [address]Dr. Nahed Yañez Sodium [Moles/Vol] 134 mmol/L Critically low 136-145 [facility] Comment on above: Performed By: #### B MP, BNP, HSTROPN ####[facility] [address] [place] [id number]. Nahed Yañez Urea nitrogen [Mass/Vol] 19.0 mg/dL Critically high 7.0-18.0 [facility] Comment on above: Performed By: #### B MP, BNP, HSTROPN ####[facility] [address] [place] [address]Dr. Nahed Yañez Urea nitrogen/Creatinine [Mass ratio] 19.4 mg/mg Normal [facility] Comment on above: Performed By: #### B MP, BNP, HSTROPN ####[facility] [address] [place] [address]Dr. Nahed Yañez TROPONIN, HIGH SENSITIVITYon 09-06-2021 HSTROP 50.4 pg/mL Normal 4.0-51.3 [facility] Comment on above: Result Comment: CUT- OFF POINTS HAVE BEEN ESTABLISHED BASED ON THE FOURTH UNIVERSAL DEFINITIONS OF MYOCARDIALINFARCTION. THE UPPER REFERENCE LIMIT (URL) OF TROPONIN, DEFINED THE 99TH PERCENTILE OFcTnI DISTRIBUTION IN A REFERENCE POPULATION, HAS BEEN CONFIRMED THE DECISION THRESHOLDFOR OR DIAGNOSIS. Performed By: #### B MP, BNP, HSTROPN ####[facility] [address] [place] [address]Dr. Nahed Yañez XR CHEST 1 Von 09-06-2021 XR CHEST 1 V Normal [facility] CBC with Diffon 09-08-2018 Abs. Basophil 0.03 k/uL Normal 0.00-0.20 [facility] Comment on above: Performed By: #### L IP, CMPX, CDP #### [facility] [address] [place] [address] Claim Technician: Nino Farias MD Abs.Imm.Granulocyte 0.05 k/uL Normal 0.00-0.30 [facility] Comment on above: Performed By: #### L IP, CMPX, CDP #### [facility] [address] [place] [address] Claim Technician: Nino Farias MD Abs.Neutrophil (Seg) 11.30 k/uL High 1.50-8.10 [facility] Comment on above: Performed By: #### L IP, CMPX, CDP #### [facility] [address] [place], [place] [id number] Claim Technician: Nino Farias MD Basophils/100 WBC (Bld) 0 % Normal 0-2 [facility] Comment on above: Performed By: #### L IP, CMPX, CDP #### [facility] [address] [place], [place] [id number] Claim Technician: Nino Farias MD Eosinophils #/vol (Bld) 0.17 10*3/uL Normal 0.00-0.44 [facility] Comment on above: Performed By: #### L IP, CMPX, CDP #### [address] [place], [facility]83 Claim Technician: Nino Farias MD Eosinophils/100 WBC (Bld) 1 % Normal 1-4 [facility] Comment on above: Performed By: #### L IP, CMPX, CDP #### [address] [place], [facility]83 Claim Technician: Nino Farias MD Erythrocyte distribution width Ratio (RBC) 12.5 % Normal 11.8-14.4 [facility] Comment on above: Performed By: #### L IP, CMPX, CDP #### [address] [place], [place] [id number] Claim Technician: Nino Farias MD Hematocrit Volume Fraction (Bld) 36.8 % Normal 36.3-47.1 [facility] Comment on above: Performed By: #### L IP, CMPX, CDP #### [address] [place], [place] [id number] Claim Technician: Nino Farias MD Hemoglobin mass conc (Bld) 11.6 g/dL Low 11.9-15.1 [facility] Comment on above: Performed By: #### L IP, CMPX, CDP #### [facility] [address] [place] [address] Dr. [place], [facility]83 Claim Technician: Nino Farias MD Immature granulocytes #/vol (Bld) 0 % Normal 0 [facility] Comment on above: Performed By: #### L IP, CMPX, CDP #### [facility] [address] [place], [place] [address] Claim Technician: Nino Farias MD Lymphocytes #/vol (Bld) 2.56 10*3/uL Normal 1.10-3.70 [facility] Comment on above: Performed By: #### L IP, CMPX, CDP #### [address] [place] [address] Claim Technician: Nino Farias MD Lymphocytes/100 WBC (Bld) 18 % Low 24-43 [facility] Comment on above: Performed By: #### L IP, CMPX, CDP #### [address] [place], [place] [address] Claim Technician: Nino Farias MD MCH Entitic mass (RBC) 30.6 pg Normal 25.2-33.5 [facility] Comment on above: Performed By: #### L IP, CMPX, CDP #### [address] [place], [facility]83 Claim Technician: Nino Farias MD MCHC mass conc (RBC) 31.5 g/dL Normal 28.4-34.8 [facility] Comment on above: Performed By: #### L IP, CMPX, CDP #### [address] [place], [facility]83 Claim Technician: Nino Farias MD MCV Entitic volume (RBC) 97.1 fL Normal 82.6-102.9 [facility] Comment on above: Performed By: #### L IP, CMPX, CDP #### [facility] [address] [place], [place] 7386483 Claim Technician: Nino Farias MD Monocytes #/vol (Bld) 0.55 10*3/uL Normal 0.10-1.20 [facility] Comment on above: Performed By: #### L IP, CMPX, CDP #### [facility] [address] [place], [place] 7516383 Claim Technician: Nino Farias MD Monocytes/100 WBC (Bld) 4 % Normal 3-12 [facility] Comment on above: Performed By: #### L IP, CMPX, CDP #### [address] [place], [facility]83 Claim Technician: Nino Farias MD Neutrophil (Seg) 77 % High 36-65 [facility] Comment on above: Performed By: #### L IP, CMPX, CDP #### [address] [place], [facility]83 Claim Technician: Nino Farias MD NRBC Automated 0.0 per 100 WBC Normal 0.0 [facility] Comment on above: Performed By: #### L IP, CMPX, CDP #### [address] [place], [place] [id number] Claim Technician: Nino Farias MD Platelet mean volume Entitic volume (Bld) 9.2 fL Normal 8.1-13.5 [facility] Comment on above: Performed By: #### L IP, CMPX, CDP #### [address] [place], [place] 7044083 Claim Technician: Nino Farias MD Platelets #/vol (Bld) 305 10*3/uL Normal 138-453 [facility] Comment on above: Performed By: #### L IP, CMPX, CDP #### [facility] [address] [place] [address] Claim Technician: Nino Farias MD RBC #/vol (Bld) 3.79 10*6/uL Low 3.95-5.11 [facility] Comment on above: Performed By: #### L IP, CMPX, CDP #### [facility] [address] [place], [place] 4007083 Claim Technician: Nino Farias MD WBC #/vol (Bld) 14.7 10*3/uL High 3.5-11.3 [facility] Comment on above: Performed By: #### L IP, CMPX, CDP #### [address] [place], [place] 3008583 Claim Technician: Nino Farias MD Auto Diff Performed NOT REPORTED Normal [facility] Comment on above: Performed By: #### L IP, CMPX, CDP #### [facility] [address] [place] [address] Dr. [place], [place] 7273083 Claim Technician: Nino Farias MD Platelets #/vol (Bld) NOT REPORTED Normal [facility] Comment on above: Performed By: #### L IP, CMPX, CDP #### [address] [place], [place] 7715683 Claim Technician: Nino Farias MD RBC morphology finding Nom (Bld) NOT REPORTED Normal [facility] Comment on above: Performed By: #### L IP, CMPX, CDP #### [facility] [address] [place] [address] Dr. [place], [place] 7740183 Claim Technician: Nino Farias MD WBC Morphology NOT REPORTED Normal [facility] Comment on above: Performed By: #### L IP, CMPX, CDP #### [facility] [address] [place], [place] 3152083 Claim Technician: Nino Farias MD Comp Metabolic Pr/rfx MGon 0 09-08-2018 ALT enzyme act/vol U/L Low 5-33 [facility] Comment on above: Performed By: #### L IP, CMPX, CDP #### [facility] [address] [place] [address] Claim Technician: Nino Farias MD (cont.) [facility] Comment on above: Result Comment: Aver age GFR for 50-59 years old: 93 mL/min/1.73sq m Chronic Kidney Disease: <60 mL/min/1.73sq m Kidney failure: <15 mL/min/1.73sq m eGFR calculated using average adult body mass. Additional eGFR calculator available at: http://[email or web address]_crcl_2011.htm Performed By: #### L IP, CMPX, CDP #### [facility] [address] [place] [address] Claim Technician: Nino Farias MD Albumin mass conc 4.0 g/dL Normal 3.5-5.2 [facility] Comment on above: Performed By: #### L IP, CMPX, CDP #### [facility] [address] [place] [address] Claim Technician: Nino Farias MD Albumin/Globulin mass ratio 1.3 {ratio} Normal 1.0-2.5 [facility] Comment on above: Performed By: #### L IP, CMPX, CDP #### [facility] [address] [place] [address] Claim Technician: Nino Farias MD Alkaline Phos 58 U/L Normal 35-104 [facility] Comment on above: Performed By: #### L IP, CMPX, CDP #### [facility] [address] [place] [address] Claim Technician: Nino Farias MD Anion gap molar conc 8 mmol/L Low 9-17 [facility] Comment on above: Performed By: #### L IP, CMPX, CDP #### [facility] [address] [place] [address] Claim Technician: Nino Farias MD AST enzyme act/vol 20 U/L Normal <32 [facility] Comment on above: Performed By: #### L IP, CMPX, CDP #### [facility] [address] [place] [address] Claim Technician: Nino Farias MD Bilirubin Ql (U) 0.17 mg/dL Low 0.3-1.2 [facility] Comment on above: Performed By: #### L IP, CMPX, CDP #### [facility] [address] [place] [address] Claim Technician: Nino Farias MD BUN/CRE Ratio 15 Normal 9-20 [facility] Comment on above: Performed By: #### L IP, CMPX, CDP #### [facility] [address] [place] [address] Claim Technician: Nino Farias MD Calcium mass conc 9.3 mg/dL Normal 8.6-10.4 [facility] Comment on above: Performed By: #### L IP, CMPX, CDP #### [facility] [address] [place] [address] Claim Technician: Nino Farias MD Chloride molar conc 97 mmol/L Low 98-107 [facility] Comment on above: Performed By: #### L IP, CMPX, CDP #### [facility] [address] [place] [address] Claim Technician: Nino Farias MD CO2 molar conc 31 mmol/L Normal 20-31 [facility] Comment on above: Performed By: #### L IP, CMPX, CDP #### [facility] [address] [place] [address] Claim Technician: Nino Farias MD Creatinine mass conc 1.22 mg/dL High 0.50-0.90 [facility] Comment on above: Performed By: #### L IP, CMPX, CDP #### [facility] [address] [place], [place] 1769283 Claim Technician: Nino Farias MD GFR, Amer 55 mL/min Low >60 [facility] Comment on above: Performed By: #### L IP, CMPX, CDP #### [facility] [address] [place], [place] 1533683 Claim Technician: Nino Farias MD GFR,non Amer 45 mL/min Low >60 [facility] Comment on above: Performed By: #### L IP, CMPX, CDP #### [facility] [address] [place] [address] Claim Technician: Nino Farias MD Glucose mass conc 93 mg/dL Normal 70-99 [facility] Comment on above: Performed By: #### L IP, CMPX, CDP #### [facility] [address] [place], [place] 6192583 Claim Technician: Nino Farias MD Potassium molar conc 4.5 mmol/L Normal 3.7-5.3 [facility] Comment on above: Performed By: #### L IP, CMPX, CDP #### [facility] [address] [place], [place] 2010883 Claim Technician: Nino Farias MD Protein mass conc 7.0 g/dL Normal 6.4-8.3 [facility] Comment on above: Performed By: #### L IP, CMPX, CDP #### [facility] [address] [place], [place] 0163383 Claim Technician: Nino Farias MD Sodium molar conc 136 mmol/L Normal 135-144 [facility] Comment on above: Performed By: #### L IP, CMPX, CDP #### [facility] [address] [place] [address] Claim Technician: Nino Farias MD Staging: Normal [facility] Comment on above: Result Comment: Stag e 1: Some kidney damage normal GFR Stage 2: Mild kidney damage GFR 60-89 Stage 3: Moderate kidney damage GFR 30-59 Stage 4: Severe kidney damage GFR 15-29 Stage 5: Severe kidney damage GFR <15 ESRD - chronic treatment by dialysis or transplant Performed By: #### L IP, CMPX, CDP #### [facility] [address] [place] [address] Claim Technician: Nino Farias MD Urea nitrogen mass conc 18 mg/dL Normal 6-20 [facility] Comment on above: Performed By: #### L IP, CMPX, CDP #### [facility] [address] [place] [address] Claim Technician: Nino Farias MD Lactic Acidon 09-08-2018 Lactate molar conc 1.2 mmol/L Normal 0.5-2.2 [facility] Comment on above: Performed By: #### L AC #### [facility] [address] [place] [address] Claim Technician: Nino Farias MD Lipaseon 09-08-2018 Lipase enzyme act/vol 27 U/L Normal 13-60 [facility] Comment on above: Performed By: #### L IP, CMPX, CDP #### [facility] [address] [place] [address] Claim Technician: Nino Farias MD UA w/Reflex Cultureon 2018 Acetoacetic Acid,Ur Negative Normal NEG [facility] Comment on above: Performed By: #### U MICAO, UAX #### [facility] [address] [place] [address] Claim Technician: Nino Farias MD Bilirubin.direct mass conc SMALL Abnormal NEG [facility] Comment on above: Performed By: #### U MICAO, UAX #### [facility] [address] [place] [address] Claim Technician: Nino Farias MD Color Nom (U) YELLOW Normal YEL [facility] Comment on above: Performed By: #### U MICAO, UAX #### [facility] [address] [place], [place] 2689283 Claim Technician: Nino Farias MD Glucose mass conc Negative Normal [facility] Comment on above: Performed By: #### U MICAO, UAX #### [facility] [address] [place] [address] Claim Technician: Nino Farias MD Hemoglobin mass conc (Bld) Negative Normal [facility] Comment on above: Performed By: #### U MICAO, UAX #### [facility] [address] [place] [address] Claim Technician: Nino Farias MD Leuckocyte Esterase Negative Normal [facility] Comment on above: Performed By: #### U MICAO, UAX #### [facility] [address] [place] [address] Claim Technician: Nino Farias MD Nitrite,Ur Negative Normal [facility] Comment on above: Performed By: #### U MICAO, UAX #### [facility] [address] [place] [address] Claim Technician: Nino Farias MD PH,Ur 5.5 Normal 5.0-9.0 [facility] Comment on above: Performed By: #### U MICAO, UAX #### [facility] [address] [place] [address] Claim Technician: Nino Farias MD Protein mass conc Negative Normal [facility] Comment on above: Performed By: #### U MICAO, UAX #### [facility] [address] [place] [address] Claim Technician: Nino Farias MD Spec. [place],Ur 1.010 Normal 1.010-1.020 [facility] Comment on above: Performed By: #### U MICAO, UAX #### [facility] [address] [place], [place] 764[address]83 Claim Technician: Nino Farias MD Turbidity CLEAR Normal CLEAR [facility] Comment on above: Performed By: #### U MICAO, UAX #### [facility] [address] [place], [place] [id number] Claim Technician: Nino Farias MD Urobilinogen,Ur Normal Normal NORM [facility] Comment on above: Performed By: #### U MICAO, UAX #### [facility] [address] [place], [place] 719[address]83 Claim Technician: Nino Farias MD Comment NOT REPORTED Normal [facility] Comment on above: Performed By: #### U MICAO, UAX #### [facility] [address] [place], [facility]83 Claim Technician: Nino Farias MD Urinalysis,Microon 9 ----- Normal [facility] Comment on above: Performed By: #### U MICAO, UAX #### [facility] [address] [place], [place] [id number] Claim Technician: Nino Farias MD Bacteria LM.HPF #/area (Urine sed) TRACE Abnormal NONE [facility] Comment on above: Performed By: #### U MICAO, UAX #### [facility] [address] [place], [place] [id number] Claim Technician: Nino Farias MD Epithelial cells LM.HPF #/area (Urine sed) None Normal 0-25 [facility] Comment on above: Performed By: #### U MICAO, UAX #### [facility] [address] [place], [place] 3584583 Claim Technician: Nino Farias MD RBC #/vol (U) None Normal 0-2 [facility] Comment on above: Performed By: #### U MICAO, UAX #### [facility] [address] [place] [address] Claim Technician: Nino Farias MD WBC #/vol (U) 0 TO 2 Normal 0-5 [facility] Comment on above: Performed By: #### U MICAO, UAX #### [facility] [address] [place] [address] Claim Technician: Nino Farias MD Amorphous sediment LM Ql (Urine sed) NOT REPORTED Normal [facility] Comment on above: Performed By: #### U MICAO, UAX #### [facility] [address] [place] [address] Claim Technician: Nino Farias MD Casts LM.LPF #/area (Urine sed) NOT REPORTED Normal [facility] Comment on above: Performed By: #### U MICAO, UAX #### [facility] [address] [place] [address] Claim Technician: Nino Fraias MD Crystals LM Nom (Urine sed) NOT REPORTED Normal [facility] Comment on above: Performed By: #### U MICAO, UAX #### [facility] [address] [place] [address] Claim Technician: Nino Farias MD Epithelial, Renal NOT REPORTED Normal 0 [facility] Comment on above: Performed By: #### U MICAO, UAX #### [facility] [address] [place] [address] Claim Technician: Nino Farias MD Mucus Strands NOT REPORTED Normal [facility] Comment on above: Performed By: #### U MICAO, UAX #### [facility] [address] [place] [address] Claim Technician: Nino Farias MD Other Observations NOT REPORTED Normal NREQ [facility] Comment on above: Performed By: #### U MICAO, UAX #### [facility] [address] [place] [address] Claim Technician: Nino Farias MD Trichomonas NOT REPORTED Normal NONE [facility] Comment on above: Performed By: #### U MICAO, UAX #### [facility] [address] [place] [address] Claim Technician: Nino Farias MD Yeast LM Ql (Urine sed) NOT REPORTED Normal NONE [facility] Comment on above: Performed By: #### U MICAO, UAX #### [facility] [address] [place] [address] Claim Technician: Nino Farias MD Vital Signs Date Time Vital Sign Value Performing Clinician Faci lity 07-05-2023 22:13-0500 Diastolic blood pressure 74 mm[Hg] Arsenio Martin [facility] 07-05-2023 22:13-0500 Heart rate 62 /min Arsenio Martin [facility] 07-05-2023 22:13-0500 Mean blood pressure 85 mm[Hg] Arsenio Martin [facility] 07-05-2023 22:13-0500 Respiratory rate 14 /min Arsenio Martin [facility] 07-05-2023 22:13-0500 SaO2% (BldA) [Mass fraction] 99 % Arsenio Martin [facility] 07-05-2023 22:13-0500 Systolic blood pressure 107 mm[Hg] Arsenio Martin [facility] 07-05-2023 21:49-0500 Diastolic blood pressure 69 mm[Hg] Arsenio Martin [facility] 07-05-2023 21:49-0500 Heart rate 59 /min Arsenio Martin [facility] 07-05-2023 21:49-0500 Mean blood pressure 80 mm[Hg] Arsenio Mario [facility] 07-05-2023 21:49-0500 Respiratory rate 15 /min Arsenio Mario [facility] 07-05-2023 21:49-0500 SaO2% (BldA) [Mass fraction] 97 % Arsenio Mario [facility] 07-05-2023 21:49-0500 Systolic blood pressure 101 mm[Hg] Arsenio Mario [facility] 07-05-2023 21:02-0500 Diastolic blood pressure 77 mm[Hg] Arsenio Martin [facility] 07-05-2023 21:02-0500 Heart rate 60 /min Arsenio Martin [facility] 07-05-2023 21:02-0500 Mean blood pressure 86 mm[Hg] Arsenio Mario [facility] 07-05-2023 21:02-0500 Respiratory rate 16 /min Arsenio Martin [facility] 07-05-2023 21:02-0500 SaO2% (BldA) [Mass fraction] 99 % Arsneio Martin [facility] 07-05-2023 21:02-0500 Systolic blood pressure 105 mm[Hg] Arsenio Mario [facility] 07-05-2023 17:45-0500 Body temperature 97.52 [degF] Arsenio Mario [facility] 07-05-2023 16:27-0500 Body temperature 96.44 [degF] Arsenio Mario [facility] 07-05-2023 15:15-0500 gluc 136 mg/dL Arsenio Mario [facility] 07-05-2023 15:15-0500 gluc Arsenioulises Martin [facility] 07-05-2023 15:02-0500 Body temperature 95.9 [degF] Arsenio Mario [facility] 07-05-2023 15:02-0500 Heart rate 54 /min Arsenio Mario [facility] 07-05-2023 15:02-0500 Respiratory rate 16 /min Arsenio Mario [facility] 08-09-2022 17:25-0400 Diastolic blood pressure 64 mm[Hg] Arsenio Mario [facility] 08-09-2022 17:25-0400 Heart rate 75 /min Arsenio Mario [facility] 08-09-2022 17:25-0400 Mean blood pressure 83 mm[Hg] Arsenio Mario [facility] 08-09-2022 17:25-0400 Respiratory rate 16 /min Arsenio Mario [facility] 08-09-2022 17:25-0400 SaO2% (BldA) [Mass fraction] 96 % Arsenio Mario [facility] 08-09-2022 17:25-0400 Systolic blood pressure 122 mm[Hg] [facility] [facility] 08-09-2022 16:00-0400 Diastolic blood pressure 56 mm[Hg] Arsenio Mario [facility] 08-09-2022 16:00-0400 Heart rate 64 /min Arsenio Mario [facility] 08-09-2022 16:00-0400 Mean blood pressure 72 mm[Hg] Arsenio Martin [facility] 08-09-2022 16:00-0400 SaO2% (BldA) [Mass fraction] 92 % Arsenio Martin [facility] 08-09-2022 16:00-0400 Systolic blood pressure 103 mm[Hg] Arsenio Martin [facility] 08-09-2022 15:00-0400 Diastolic blood pressure 67 mm[Hg] Arsenio Martin [facility] 08-09-2022 15:00-0400 Heart rate 61 /min Arsenio Martin [facility] 08-09-2022 15:00-0400 Mean blood pressure 80 mm[Hg] Arsenio Martin [facility] 08-09-2022 15:00-0400 Systolic blood pressure 106 mm[Hg] Arsenio Martin [facility] 08-09-2022 14:03-0400 SaO2% (BldA) [Mass fraction] 94.1 % Arsenio Martin [facility] Resp Auto SS 08-09-2022 13:10-0400 Body temperature 98.24 [degF] Arsenio Martin [facility] 08-09-2022 13:10-0400 Heart rate 70 /min Arsenio Martin [facility] 08-09-2022 13:10-0400 Respiratory rate 18 /min Arsenio Martin [facility] Encounters Encounter Date Encounter Type Care Provider Facility Start: 07-11-2023 Evaluation and management of inpatient LOREE CHANCE [facility] Start: 07-08-2023 Evaluation and management of inpatient MANESH LARSON [facility] Start: 07-06-2023 Evaluation and management of inpatient MANLAYNE LARSON [facility] Start: 07-06-2023 End: 07-11-2023 Evaluation and management of inpatient UMAIR MANDUJANO [facility] Start: 07-05-2023 End: 07-06-2023 Emergency department patient visit Arsenio Martin Facility:[facility] Start: 07-05-2023 End: 07-05-2023 Emergency department patient visit Arsenio Martin [facility] Start: 06-29-2023 Evaluation and management of inpatient ROSALBA MOSS [facility] Start: 06-29-2023 End: 07-02-2023 Evaluation and management of inpatient SOCORRO Zayas MATTHEW [facility] Start: 08-22-2022 End: 08-24-2022 Evaluation and management of inpatient DR ЕКАТЕРИНА ROBERT . Facility: Start: 08-09-2022 End: 08-09-2022 Emergency department patient visit Arsenio Martin Facility:[facility] Start: 08-09-2022 End: 08-09-2022 Emergency department patient visit Arsenio Martin [facility] Start: 07-30-2022 End: 08-01-2022 Evaluation and management of inpatient DR ЕКАТЕРИНА ROBERT . Facility: Start: 07-27-2022 End: 07-28-[address] ЕКАТЕРИНА ROBERT . Facility:[facility] Start: 05-08-2022 End: 05-09-[address] ЕКАТЕРИНА ROBERT . Facility:[facility] Start: 01-31-2022 End: 01-31-[address] ЕКАТЕРИНА ROBERT . Facility: Start: 11-01-2021 End: 11-03-2021 Evaluation and management of inpatient TAMIE FAJARDO Facility:[facility] Start: 10-31-2021 End: 11-01-2021 Evaluation and management of inpatient DR ЕКАТЕРИНА ROBERT . Facility:[facility] Start: 09-28-2021 End: 09-29-[address] ЕКАТЕРИНА ROBERT . Facility:[facility] Start: 09-06-2021 End: 09-07-[address] ЕКАТЕРИНА ROBERT . Facility:[facility] Start: 03-04-2021 End: 03-04-2021 Emergency department patient visit Magdalena Oconnor Facility:[facility] Start: 09-08-2018 End: 09-08-2018 Emergency department patient visit KEISHA DORADO JR [facility] Procedures Date Procedure Procedure Detail Performing Clinician Start: 08-02-2022 Microscopic examinat ion of blood, culture DR ЕКАТЕРИНА ROBERT . Comment on above: Performed By: #### B LDCX2 ####[facility] [address] [place], [place] [address]Gm. Nahed Otilio Start: 11-02-2021 Antibody screen SAVANNAHI AD Comment on above: Performed By: #### 3 5200, [address] #### [facility] [address] Start: 07-16-2019 Phalangectomy of toe Fabián [...] Date Payer Category Payer Self-pay 2018 Medicare [id number] 1960 Unknown [id number] 2.16.8 [id number] 1960 Unknown [id number] 2.16.8 [id number] 1960 Unknown [id number] 2.16.84 0.1.353591.3.579.2.593 1960 Unknown [id number] 2.16.84 0.1.493644.3.579.2.593 1960 Unknown [id number] 2.16.84 0.1.332440.3.579.2.593 1960 Unknown [id number] 2.16.84 0.1.490216.3.579.2.593 1960 Unknown [id number] 2.16.84 0.1.952295.3.579.2.593 1960 Unknown [id number] 2.16.84 0.1.988782.3.579.2.593 1960 Unknown [id number] 2.16.84 0.1.447177.3.579.2.593 1960 Unknown [id number] 2.16.84 0.1.987570.3.579.2.593 1960 Unknown [id number] 2.16.8 40.1.730424.3.579.2.727 1960 Unknown [id number] 2.16.8 40.1.857803.3.579.2.727 1959 Unknown [id number] Unknown [id number] 2.16.8 [id number] Social History Date Type Detail Facility Start: 08-09-2022 Tobacco smoking status Heavy t obacco smoker (finding) [facility] Comment on above: 2 cigarettes a day Sex Assigned At Female [facility] Functional Status Date Assessment Result Facility 07-05-2023 Functional Status N/A [facility] 08-09-2022 Functional Status N/A [facility] Clinical Notes 11-03-2021 to 07-11-2023 Note Date & Type Note Facility 07-11-2023 Note Hospital Medicine Discharge Summary Final Discharge Diagnosis: Bradycardia Admission Diagnosis: Bradycardia [R00.1] Junctional rhythm on EKG Intermittent Hypotension CAD s/p stent placement HFpEF s/p RHC NSTEMI-suspect Type II COPD-not in exacerbation Anxiety Sciatica Hospital course: Vivian Vnan is a 63 y.o. female with PMHx of HTN, A-fib, HFpEF, T2DM, Stent placement in October 2021, sciatica on idno and tobacco dependence who presented on 07/06 [...] 10:20 AM Socorro Oviedo NP CARD Deirdre [facility] 08/06/2023 1:30 PM [facility] CV CLINIC DEVICE CHECK [facility] CARD [place] [facility] Your medication list START taking these [...] 70.4 kg (1 (more content not included)... [facility] 07-11-2023 Note Occupational Therapy Occupational Therapy Evaluation [...] List Diagnosis NSTEMI (non-ST elevated myocardial infarction) ([facility]/HCC) Coronary arteriosclerosis Hyperlipidemia Type 2 diabetes mellitus ([facility]/HCC) Acute non-ST segment elevation myocardial infarction ([facility]/HCC) Cigarette smoker Other forms of angina pectoris [...] Level of Function Prior Function Level of Emmons: Independent with ADLs and functional transfers, Independent [...] Eating meals?: None (Independent) Total Score OT [facility]: 24 Assessment/Plan OT Assessment OT Education/Comments: (PPM handout issued and discussed with good return demo) Plan OT Plan: No skilled OT OT Discharge Recommendations: Home OT - Discharge Recommendations Placed: Yes OT Goals Multi-Disciplinary Problems (from Occupational Therapy) Active Problems Not on file [facility] 07-11-2023 Note UTP CARDIOLOGY PROGR ESS NOTE [...] Normal heart size. Electronically signed: Denver Hernandez. [facility] 06/29/23: Final Impression: 1) Coronary angiogram shows stable CAD 2) right heart catheterization shows severely decompensated heart failure with mean wedge pressure 35 mmHg Plan: 1) optimal med therapy for CAD and HFpEF 2) Aspirin and high intensity statin therapy for CAD 3) optimize medical therapy for HFpEF as tolerated 4) outpatient follow-up with [place] [facility] Echo 06/29/23: Left Ventricle: The left ventricle is normal size. Global left ventricular sys (more content not included)... [facility] 07-11-2023 Note Hospital Medicine Daily Progress Note - 07/11/2023 8:24 AM; Room: 3120/3120-01 Admission: 07/06/2023 12:25 AM; Length of stay: 5 days THE HOSPITALIST TEAM PREFERS TO USE [employer] CHAT FOR COMMUNICATION 7AM-7PM. IF I DO NOT RESPOND WITHIN 15 MINUTES, PLEASE PAGE ME/CALL THROUGH THE LEAD RETAIL SALES ASSOCIATE. FROM 7PM-7AM, PLEASE PAGE [phone](COVR) Code Status: Full Code Barriers to Discharge: [...] LDL 95 07/06/2023 No results found for: [id number] , IRON , TIBC , C3 , [...] clear. Normal heart (more content not included)... [facility] 07-10-2023 Note Indications for dual -chamber pacemaker [...] of the upper extremity Loree Chance M.D. [facility] Scale Mechanicprofessor of education and Pediatrics Director: Cardiac Electrophysiology Program [facility] 07-10-2023 Note Patient: Vivian Dela Cruz or Procedure Information Date/Time: 07/10/23 1500 Procedure: Implant PPM Location: [facility] GIFT BASKET PACKER 1 / [facility] VASCULAR [facility] (Cath) Providers: Loree Chance MD [...] discussed with patient who. Additional Equipment Requests [facility] 07-10-2023 Note UTP CARDIOLOGY PROGR ESS NOTE [...] lock IV AND sodium chloride CV Testing: [facility] 06/29/23: Final Impression: 1) Coronary angiogram shows stable CAD 2) right heart catheterization shows severely decompensated heart failure with mean wedge pressure 35 mmHg Plan: 1) optimal med therapy for CAD and HFpEF 2) Aspirin and high intensity statin therapy for CAD 3) optimize medical therapy for HFpEF as tolerated 4) outpatient follow-up with [place] [facility] Echo 06/29/23: Left Ventricle: The left [...] 86 QT Interval 466 QTC CALCULATION(BAZETT) 476 R-[place] 34 T Wave [place] [address] & Marked T wave abnormality, consider anterolateral ischemia Prolonged QT Abnormal ECG When compared with ECG of 06-JUL-2023 14:34, T wave inversion less evident in Lateral Confirmed by Yoan GRIJALVA, KIERA Rainey (57) on 07/08/2023 12:23:36 PM Assessment/Plan Junctional bradycardia Abnormal EKG- ST/T wave changes concerning for ischemia- [facility] showed stable CAD Ventric (more content not included)... [facility] 07-10-2023 Note Hospital Medicine Daily Progress Note - 07/10/2023 8:08 AM; Room: [address] [place] [address] Admission: 07/06/2023 12:25 AM; Length of stay: 4 days THE HOSPITALIST TEAM PREFERS TO USE [employer] CHAT FOR COMMUNICATION 7AM-7PM. IF I DO NOT RESPOND WITHIN 15 MINUTES, PLEASE PAGE ME/CALL THROUGH THE LEAD RETAIL SALES ASSOCIATE. FROM 7PM-7AM, PLEASE PAGE [phone](COVR) Code Status: Full Code Barriers to Discharge: [...] LDL 95 07/06/2023 No results found for: [id number] , IRON , TIBC , C3 , [...] need to arrange for her transportation needs; physician underwriter provided printed information to Pt for local [employer] for Pt (more content not included)... [facility] 07-09-2023 Note Patient admitted to the hospital for: Bradycardia. Chart echo from 06/29/2023 reports: EF 60%. Echo report does Not qualify for Cardiac Rehab services per CMS eligibility criteria. A Cardiac Rehab referral must also meet CMS criteria. Marline Suarez, RN, BSN Cardiopulmonary Rehab Coordinator [facility] 07-09-2023 Note Cardiology Inpatient Progress Note Subjective [...] 86 QT Interval 466 QTC CALCULATION(BAZETT) 476 R-[place] 34 T Wave [place] [address] & Marked [...] HFpEF as tolerated 4) outpatient follow-up with [place] [facility] Hemodynamic Data: RA: 17 mmHg RV: [...] of bradycardia. Patient has been transferred to [facility] for consideration of pacemaker placement. As per patient, her heart rate was 18 at the outside hospital, however I could not confirm from any documentation. During the current hospitalization, so far patient's heart rate has been ranging 40-50. EKG performed in the ED showed diffuse T wave inversions with junctional rhythm. Telemetry shows sinus bradycardia a (more content not included)... [facility] 07-09-2023 Note Hospital Medicine Daily Progress Note - 07/09/2023 11:10 AM; Room: [address] [place] [address] Admission: 07/06/2023 12:25 AM; Length of stay: 3 days THE HOSPITALIST TEAM PREFERS TO USE [employer] CHAT FOR COMMUNICATION 7AM-7PM. IF I DO NOT RESPOND WITHIN 15 MINUTES, PLEASE PAGE ME/CALL THROUGH THE LEAD RETAIL SALES ASSOCIATE. FROM 7PM-7AM, PLEASE PAGE [phone](COVR) Code Status: Full Code Barriers to Discharge: [...] LDL 95 07/06/2023 No results found for: [id number] , IRON , TIBC , C3 , [...] Planning TBD Signed Jayden Haider MD MS4 [facility] 07/09/2023 11: (more content not included)... [facility] 07-08-2023 Note ---- Attestation signed by Kiera [...] 07/08/23 0802 84/55 36.4 ???C (97.5 ???F) [facility] 67 21 98 % -- 07/08/23 0801 [...] 86 QT Interval 466 QTC CALCULATION(BAZETT) 476 R-[place] 34 T Wave [place] [address] & Marked T wave abnormality, consider anterolateral ischemia Prolonged QT Abnormal ECG When compared with ECG of 06-JUL-2023 14:34, T wave inversion less evident in Lateral Lab Results Component Value Date CKTOTAL 36.0 07/06/2023 TROPONINI 0.12 (HH) 07/06/2023 Complete Echo (TTE) w/wo Imaging Agent, Strain, 3D, Bubble Study Result Date: 06/29/2023 1 1 [facility] Heart Station [address] [place] [address] [phone] (fax) Echocardiogram-[facility] Name: VIVIAN VANN Study Date: 06/29/2023 12:30 PM B/P: 135 mmHg/89 mmHg HR: Date of : 1960 Location: [facility] Height: 67 in. Age: 63 year(s) [...] Valve: The mitr (more content not included)... [facility] 07-08-2023 Note Hospital Medicine Daily Progress Note - 07/08/2023 8:42 AM; Room: [facility]/3120- Admission: 07/06/2023 12:25 AM; Length of stay: 2 days THE HOSPITALIST TEAM PREFERS TO USE [employer] CHAT FOR COMMUNICATION 7AM-7PM. IF I DO NOT RESPOND WITHIN 15 MINUTES, PLEASE PAGE ME/CALL THROUGH THE LEAD RETAIL SALES ASSOCIATE. FROM 7PM-7AM, PLEASE PAGE [phone](COVR) Code Status: Full Code Barriers to Discharge: [...] LDL 95 07/06/2023 No results found for: [id number] , IRON , TIBC , C3 , [...] Planning TBD Signed Jayden Haider MD MS4 [facility] 07/08/2023 8:42 AM [facility] 07-07-2023 Note ---- Attestation signed by Kiera [...] 07/06/23 1725 91/66 36.4 ???C (97.6 ???F) [facility] 64 13 97 % -- -- 07/06/23 [...] 84 QT Interval 434 QTC CALCULATION(BAZETT) 451 R-[place] 23 T Wave [place] [address] & Marked [...] Bubble Study Result Date: 06/29/2023 1 1 [facility] [address] [place] [address] [phone] (fax) Echocardiogram-[facility] Name: VIVIAN VANN Study Date: 06/29/2023 12:30 PM B/P: 135 mmHg/89 mmHg HR: Date of : 1960 Location: [facility] Height: 67 in. Age: 63 year(s) [...] abnormality. Right Ventricle: (more content not included)... [facility] 07-07-2023 Note Hospital Medicine Daily Progress Note - 07/07/2023 10:19 AM; Room: [address] [place] [address] Admission: 07/06/2023 12:25 AM; Length of stay: 1 days THE HOSPITALIST TEAM PREFERS TO USE EPIC CHAT FOR COMMUNICATION 7AM-7PM. IF I DO NOT RESPOND WITHIN 15 MINUTES, PLEASE PAGE ME/CALL THROUGH THE LEAD RETAIL SALES ASSOCIATE. FROM 7PM-7AM, PLEASE PAGE [phone](COVR) Code Status: Full Code Barriers to Discharge: [...] 4.6 3.7 CHLORIDE (more content not included)... [facility] 07-06-2023 Note communication receiv ed that Patient stating does not have transportation to return home at discharge At 07/02/2023 discharge, [facility] provided a one-time courtesy taxi cab transportation for Patient to return to her home (Patient's residence is [address] from [facility] and cost for taxi cab was $146); [facility] is not able to provide another taxi cab. The following information was printed and provided to the Patient to make her own transportation arrangements for once she is medically cleared for discharge: [facility] hospital address is [address] [place] [address] [employer] Medicare to ask if non-emergency medical transportation is a covered benefit of the specific plan (https://www.[employer]contact-us/[place] o/) Taxis in [place] (https://co.jonnie.tx./3086/Taxi) [employer] [phone] ([phone]) [employer] [phone] [facility] 07-06-2023 Note 07/06/23 1625 Referral Data 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 Primary Caregiver Self Activities [...] need to arrange for her transportation needs; physician underwriter provided printed information to Pt for local taxi [employer] companies for Pt to consider; [facility] unable to pay for another one-time courtesy taxi cab for 57miles one-way trip) [facility] 07-06-2023 Note 1526 physician underwriter attempted to meet with Pt to discuss discharge planning (including Patient will need to arrange her transportation once she is medically cleared to discharge to home); Patient not in bed; unable to complete [id number]-qt-[id number] 1542 physician underwriter attempted to meet with Pt to discuss discharge planning (including Patient will need to arrange her transportation once she is medically cleared to discharge to home); Patient caring for toileting hygiene; unable to complete [id number] [facility] 07-06-2023 Note 07/06/23 1219 Admission Assessment Questions [...] Discharge? Yes Does the patient have a rn case manager assigned to them through their insurance? No [...] to send link and activate MyChart? Yes [facility] 07-06-2023 Note ---- Attestation signed by Jayden [...] Progress Note - 07/06/2023 11:37 AM; Room: [address] [place] [address] Admission: 07/05/2023 11:50 PM; Length of stay: 1 days THE HOSPITALIST TEAM PREFERS TO USE [employer]ban[employer] CHAT FOR COMMUNICATION 7AM-7PM. IF I DO NOT RESPOND WITHIN 15 MINUTES, PLEASE PAGE ME/CALL THROUGH THE LEAD RETAIL SALES ASSOCIATE. FROM 7PM-7AM, PLEASE PAGE [phone](COVR) Code Status: Full Code Barriers to Discharge: [...] -Continue home medi (more content not included)... [facility] 07-06-2023 Note . Hospital Medicine History and Physical 07/06/2023 1:19 AM THE HOSPITALIST TEAM PREFERS TO USE [employer]Urbanize CHAT FOR COMMUNICATION 7AM-7PM. IF I DO NOT RESPOND WITHIN 15 MINUTES, PLEASE PAGE ME/CALL THROUGH THE LEAD RETAIL SALES ASSOCIATE. FROM 7PM-7AM, PLEASE PAGE [phone](COVR) Chief Complaint No chief complaint on file. History of Present Illness Vivian Vann is an 63 y.o. female who came from home with CP. This is a 63 years old female lady with a medical history of hypertension, tobacco smoking, A-fib, CHF. Came into the [facility] as a direct admit transfer from [...] Bradycardia 07/06/2023 NSTEMI (non-ST elevated myocardial infarction) ([facility]) 06/29/2023 Other forms of angina pectoris 06/29/2023 Hypomagnesemia 06/29/2023 Acute midline low back pain without sciatica 06/29/2023 Coronary arteriosclerosis 11/24/2021 Hyperlipidemia 11/24/2021 Type 2 diabetes mellitus ([facility]) 11/24/2021 Acute non-ST segment elevation myocardial infarction ([facility]) 11/24/2021 Cigarette smoker 11/24/2021 Assessment and [...] this hospital stay by a member of [facility]. Past Medical History No past [...] (CARDIA) Difficulty of (more content not included)... [facility] 07-05-2023 Evaluation + Plan note Extrac florinda [...] Reflex 07/05/23 * Drug Screen Urine 07/05/23 [facility]02-19-2024 NotePatient admitted to the hospital for: NSTEMI. Review of the last noted chart Echo from 06/29/2023 reports: EF 60%. Reported echo result does not qualify for Cardiac Rehab services per [facility] eligibility criteria for CHF. 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 No Patient's goal for discharge home RucCC screened; Pt declining HHC, Consult resolved 1340 Communication received that Pt needing transportation to home since was transferred here from [facility], does not drive, lives alone, does not have friends or family who can transport ([phone]) PC to [employer]; from [address] [place] [address] to [address] [place] [address] will be $146 [employer] provided verbal estimate to casino floor supervisor, verbal approval from casino floor supervisor [phone] taxi cab transportation arranged; bedside RN notified Confirmation #: [id number] Passenger: VIVIAN VANN Phone Number: [phone] Pickup Date/Time: 07/02/2023 3:00 PM Pickup Address: [facility], [address] [place] [address], [place], [address] Drop Off Address: [address] [place] [address]. Arlene Notes: please pickup at [facility]02-19-2024 Note07/02/23 1017 Admission Assessment Questions Verify insurance [...] Discharge? Yes Does the patient have a rn case manager assigned to them through their insurance? No [...] able to send link and activate MyChart? [facility]02-19-2024 Note Attestation signed by Merritt Guerrero [...] Value Ventricular Rate 61 Atrial Rate 61 SC Interval 150 QRS DURATION 88 QT Interval 476 QTC CALCULATION(BAZETT) 479 P [place] 68 R-[place] 25 T Wave [place] 128 Impression Normal sinus rhythm Right atrial [...] Bubble Study Result Date: 06/29/2023 1 1 [facility] [address] [place] [address] [phone] (fax) Echocardiogram-[facility] Name: VIVIAN VANN Study Date: 06/29/2023 12:30 PM B/P: 135 mmHg/89 mmHg HR: Date of : 1960 Location: [facility] Height: 67 in. Age: 63 year(s) [...] ventricular systolic function. Dop (more content not included)...[facility]02-18-[facility] NoteHospital Medicine Daily Progress Note - 07/01/2023 12:00 PM; Room: [address] [place] [address] Admission: 06/29/2023 11:04 AM; Length of stay: 2 days THE HOSPITALIST TEAM PREFERS TO USE EPIC CHAT FOR COMMUNICATION 7AM-7PM. IF I DO NOT RESPOND WITHIN 15 MINUTES, PLEASE PAGE ME/CALL THROUGH THE LEAD RETAIL SALES ASSOCIATE. FROM 7PM-7AM, PLEASE PAGE [phone](COVR) Code Status: Full Code Barriers to Discharge: [...] Principal Problem: NSTEMI (non-ST elevated myocardial infarction) ([facility]) Active Problems: Hyperlipidemia Type 2 diabetes mellitus ([facility]) Other forms of angina pectoris Hypomagnesemia [...] LDL 114 11/02/2021 No results found for: [id number] , IRON , TIBC , C3 , C4 , WENDI , CANCA , ASO , PSA , CEA , CA125 , CA199 , AFP , CA153 Imaging ECG 12 lead Normal sinus rhythm Right atrial (more content not included)...[facility] 07-01-2023 Note Attestation signed by Merritt Guerrero [...] Value Ventricular Rate 61 Atrial Rate 61 SC Interval 150 QRS DURATION 88 QT Interval 476 QTC CALCULATION(BAZETT) 479 P [place] 68 R-[place] 25 T Wave [place] 128 Impression Normal sinus rhythm Right atrial [...] Bubble Study Result Date: 06/29/2023 1 1 [facility] Heart Station [address] [place] [address] [phone] (fax) Echocardiogram-[facility] Name: VIVIAN VANN Study Date: 06/29/2023 12:30 PM B/P: 135 mmHg/89 mmHg HR: Date of : 1960 Location: [facility] Height: 67 in. Age: 63 year(s) [...] Right Ventricle: The r (more content not included)...[facility]02-17-2024 Note Attestation signed by Merritt Guerrero MD [...] Value Ventricular Rate 61 Atrial Rate 61 SC Interval 150 QRS DURATION 88 QT Interval 476 QTC CALCULATION(BAZETT) 479 P [place] 68 R-[place] 25 T Wave [place] 128 Impression Normal sinus rhythm Right atrial [...] Bubble Study Result Date: 06/29/2023 1 1 [facility] Heart Station [address] [place] [address] [phone] (fax) Echocardiogram-[facility] Name: VIVIAN VANN Study Date: 06/29/2023 12:30 PM B/P: 135 mmHg/89 mmHg HR: Date of : 1960 Location: [facility] Height: 67 in. Age: 63 year(s) [...] Mild Mild N (more content not included)... [facility]02-17-2024 NoteHospital Medicine Daily Progress Note - 06/30/2023 11:32 AM; Room: [facility]/3120- Admission: 06/29/2023 11:04 AM; Length of stay: 1 days THE HOSPITALIST TEAM PREFERS TO USE [employer] CHAT FOR COMMUNICATION 7AM-7PM. IF I DO NOT RESPOND WITHIN 15 MINUTES, PLEASE PAGE ME/CALL THROUGH THE [employer]. FROM 7PM-7AM, PLEASE PAGE [phone](COVR) Code Status: Full Code Barriers to Discharge: [...] Principal Problem: NSTEMI (non-ST elevated myocardial infarction) ([facility]) Active Problems: Hyperlipidemia Type 2 diabetes mellitus ([facility]) Other forms of angina pectoris Hypomagnesemia [...] LDL 114 11/02/2021 No results found for: FFQBSTYE01 , IRON , TIBC , C3 , C4 , WENDI , CANCA , ASO , PSA , CEA , CA125 , CA199 , AFP , CA153 Imaging ECG 12 lead Normal sinus rhythm Right atrial enlargement ST & T wave abnormality, consider ante (more content not included)...[facility]02-16-2024 NotePatient: Vivian Vann Procedure Information Date/Time: 06/29/23 1655 Procedure: Coronary angiography Location: [facility] 3 / [facility] VASCULAR [facility] (Cath) Providers: Ortiz Aquino MD [...] who. Plan discussed with attending. [facility] Hospital Medicine History and Physical 06/29/2023 12:51 PM THE HOSPITALIST TEAM PREFERS TO USE [employer] CHAT FOR COMMUNICATION 7AM-7PM. IF I DO NOT RESPOND WITHIN 15 MINUTES, PLEASE PAGE ME/CALL THROUGH THE LEAD [employer] SALES ASSOCIATE. FROM 7PM-7AM, PLEASE PAGE [phone](COVR) Chief Complaint Direct admission from [facility] for NSTEMI requiring cardiac cath History of Present Illness Vivian Vann is an 63 y.o. female who came from [facility] as direct asmission for NSTEMI. Patient presented 06/28/23 to [place] ED for c/o chest pain and lower back pain. Patient troponin level found to be 557 and EKG showed new ischemia and inverted T-waves, NSTEMI. She was given nitroglycerin and started on heparin drip. Patient is 1 year s/p stent placement at [facility] on plavix and aspirin. Dr. Yoo with cardiology agreed to patient transfer here to [facility] with hospital medicine admitting and cardiology [...] Low back pending. Laboratory workup here at [facility] shows CBC unremarkable w/ exception of [...] nursing note reviewed. Exam conducted with a supervisor fertilizer present. Constitutional: General: She is not in [...] Date Noted NSTEMI (non-ST elevated myocardial infarction) ([facility]) 06/29/2023 Assessment and Plan Chest pain Low Back Pain NSTEMI -Troponin 557 at [facility], troponin now 0.07 - aPTT 67.3, BN [...] Heparin drip with titratio (more content not included)...[facility]04-05-2023 NoteMicrobiology PROCEDURE: Blood Culture Charcoal [R1] SOURCE: [...] Locations R1: This test was performed at: [facility], [address] [place] [address], [id number] [place] [address], [id number] Rivera StreetComment on above:Performed By: #### [id number] ####[address] [id number] NoteMicrobiology PROCEDURE: Blood Culture Charcoal [R1] SOURCE: Blood BODY SITE: Arm L COLLECTED DATE/TIME: 08/09/2022 14:09 EDT RECEIVED DATE/TIME: 08/09/2022 14:17 EDT START DATE/TIME: 08/09/2022 14:17 EDT FREE TEXT SOURCE: lt ac Nic PA-C, Clinton C Nic PA-C, Clinton C FINAL REPORTS Final Report [] Verified Date/Time: 08/16/2022 15:58 EDT No growth at 7 days. Performing Locations R1: This test was performed at: [facility], [address] [place] [address], [id number] [place] [address], [id number] Rivera StreetComment on above:Performed By: #### [id number] ####[address] [id number] Hospital Discharge instructions Patient Education 08/09/2022 16:50:59 [...] Follow these instructions at home: Medicines Take etid-wju-xlzjtxa and prescription medicines (inhaled or pills) only [...] 02/07/2006 Document Revised: 04/12/2018 Document Reviewed: 06/04/2017 [employer] Patient Education 2020 [employer]. Follow Up Care 08/09/2022 13:09:28 With:Екатерина Robert Address: [address] [place] [id number] Business (1) When:08/12/2022 16:50:37 Comments:Call the office [...] you develop any new or worsening symptoms. [facility]03-29-2023 Evaluation + Plan noteExtracted from: Title:ED [...] Charcoal 08/09/22 * Blood Culture Charcoal 08/09/22 [facility]06-23-2022 NoteMR#: [id number] [facility] Pt. Name: Vivian Vann Admitted: 11/01/2021 Discharged: 11/03/2021 Date of : 1960 Physician: Tamie Fajardo MD DISCHARGE SUMMARY PRINCIPAL DIAGNOSIS: Jpz-CM-bftcktgiu myocardial infarction. SECONDARY DIAGNOSES: 1. Questionable small subsegmental PE in the right lower lobe, favored to be chronic per CT angio done outside facility. 2. Peptic ulcer disease. 3. Depression. 4. Chronic obstructive pulmonary disease. 5. THC use. 6. Nicotine use. HOSPITAL COURSE: Again, the patient was admitted to the hospital on 11/01/2021, with chest pain and she was found to have a kbh-ZG-jrqtobira OR. The patient underwent cardiac catheterization and had [...] Fajardo MD Date Trans: 11/03/2021 01:10 P/laura [id number] cc: Gasper Avendano M.D. [address] [place] [id number] Екатерина Robert M.D. [place] [id number] [facility] [id number] Narrative No data available for this section [facility] No data available for this section [facility] No data available for this section [facility] Summary Purpose Family History No Family [...] content) DATE CREATED AUTHOR 09/12/2018 Sury Vasquez [facility]ital DATE CREATED AUTHOR AUTHOR'S ORGANIZ ATION 01/06/2022 [facility] DATE CREATED AUTHOR AUTHOR'S ORGANIZ ATION 09/05/2022 [facility] DATE CREATED AUTHOR AUTHOR'S ORGANIZ ATION 07/13/2023 [facility] DATE CREATED AUTHOR AUTHOR'S ORGANIZ ATION 07/13/2023 [facility] DATE CREATED AUTHOR AUTHOR'S ORGANIZ ATION 07/19/2023 [facility] Patient Care team informatio n (unrecognized section and content) Personnel Name: Екатерина Robert MD Address: Address: [address] [place] [address] Personnel Name: Екатерина Robert MD Address: Address: [address] [place] [address] FOR RECORDS PERTAINING TO PATIENTS WHO ARE [...] BE BASED ON THE PRIMARY CLINICAL RECORDS. [facility]. provides no warranty or guarantee of the accuracy or completeness of information in this document.
[2023-07-29 20:25] LABS: Troponin I High Sensitivity 127.3 pg/mL (4.0-51.3)
[2023-07-29] MEDS: CYCLOBENZAPRINE HCL 10 MG TABLET PO (20:44)
[2023-07-29] MEDS: BUSPIRONE HCL 10 MG TABLET PO (20:44)
[2023-07-29] MEDS: CARVEDILOL 6.25 MG TABLET PO (20:44)
[2023-07-29] MEDS: 0.9 % SODIUM CHLORIDE 1,000 ML 100 ML IV (20:44)
[2023-07-29] MEDS: ALPRAZOLAM 1 MG TABLET PO (20:44)
[2023-07-29] MEDS: GABAPENTIN 300 MG CAPSULE PO (22:12)
[2023-07-29] MEDS: TRAZODONE HCL 50 MG TABLET PO (22:12)
[2023-07-30] VITALS (10 sets, daily range): BP systolic 95–114; BP diastolic 65–72; PULSE 75–85; RESP 16–18; TEMP 36.4–36.6; O2SAT 91–95
[2023-07-30] MEDS: HYDROCODONE/ACET 5-325 MG TABLET 1 TAB PO (00:22)
--- NOTE | 2023-07-30 05:00 | XR_ITS ---
The [address] [address] Patient Name: EMERY JETT MRN: [id number] date: 1960 Sex: F Assigned Patient Location: [place] Current Patient Location: [place] Accession/Order Number: [id number] Exam Date: 07/30/2023 05:01 Report Date: 07/30/2023 06:29 At the request of: KIRK SHEN Procedure: XR chest 1V EXAMINATION: XR chest 1V HISTORY: SOB COMPARISON: XR chest 07/29/2023 FINDINGS: LUNGS: No infiltrate, pneumothorax, or pleural effusion. MEDIASTINUM: No abnormal widening. BOWEL GAS PATTERN: Non-obstructed. FREE AIR: None. CALCIFICATIONS: None significant. BONES: No fracture or visible bone lesion. OTHER: Stable cardiac pacer. XR/XR chest 1V IMPRESSION: 1. No acute cardiac point process. Stable chest. Electronically authenticated by: JOSY WEBER Date: 07/30/2023 06:29
[2023-07-30 05:20] LABS: Basophils Percent Auto 0.2 % (0.2-2.0); Eosinophils Absolute Auto 0.1 10^3/uL (0.0-0.7); Eosinophils Percent Auto 0.5 % (0.9-7.0); Hematocrit 40.2 % (36.0-48.0); Hemoglobin 12.4 g/dL (12.0-16.0); Immature Granulocytes Abs Auto 0.22 10^3/uL (0.00-0.03); Immature Granulocytes Pct Auto 1.2 % (0.0-0.5); Lymphocytes Absolute Auto 4.8 10^3/uL (1.2-3.8); Lymphocytes Percent Auto 25.6 % (20.5-60.0); Mean Corpuscular HGB Conc 30.8 g/dL (29.9-35.2); Mean Corpuscular Hemoglobin 27.3 pg (26.7-34.0); Mean Corpuscular Volume 88.4 fL (81.0-99.0); Mean Platelet Volume 9.8 fL (9.5-13.5); Monocytes Absolute Auto 1.3 10^3/uL (0.3-0.8); Monocytes Percent Auto 6.8 % (1.7-12.0); Neutrophils Absolute Auto 12.2 10^3/uL (1.4-6.5); Neutrophils Percent Auto 65.7 % (43.0-75.0); Platelet Count 427 10^3/uL (150-450); Red Blood Count 4.55 10^6/uL (4.20-5.40); Red Cell Distribution Width 15.3 % (11.0-15.0); White Blood Count 18.6 10^3/uL (4.0-11.0)
[2023-07-30 05:31] LABS: Anion Gap 9.6; Calcium 8.9 mg/dL (8.5-10.1); Carbon Dioxide 32.2 mmol/L (21.0-32.0); Chloride 98 mmol/L (98-107); Estimated GFR (African America >60 (>=60); Estimated GFR (Non-African Ame 54 (>=60); Glucose 141 mg/dL (74-106); Potassium 4.8 mmol/L (3.5-5.1); Sodium 135 mmol/L (136-145)
[2023-07-30] MEDS: OMEPRAZOLE 40 MG CAPSULE.DR PO (05:53)
[2023-07-30] MEDS: GABAPENTIN 300 MG CAPSULE PO (05:53)
[2023-07-30] MEDS: LEVOTHYROXINE SODIUM 75 MCG TABLET PO (05:53)
[2023-07-30 07:14] LABS: Adenovirus NOT DETECTED (NOT DETECTE); Bordetella parapertussis NOT DETECTED (NOT DETECTE); Coronavirus 229E NOT DETECTED (NOT DETECTE); Coronavirus HKU1 NOT DETECTED (NOT DETECTE); Coronavirus NL63 NOT DETECTED (NOT DETECTE); Coronavirus OC43 NOT DETECTED (NOT DETECTE); Human Metapneumovirus NOT DETECTED (NOT DETECTE); Human Rhinovirus/Enterovirus NOT DETECTED (NOT DETECTE); Influenza A NOT DETECTED (NOT DETECTE); Influenza B NOT DETECTED (NOT DETECTE); Mycoplasma pneumoniae NOT DETECTED (NOT DETECTE); Parainfluenza Virus 1 NOT DETECTED (NOT DETECTE); Parainfluenza Virus 2 NOT DETECTED (NOT DETECTE); Parainfluenza Virus 3 NOT DETECTED (NOT DETECTE); Parainfluenza Virus 4 NOT DETECTED (NOT DETECTE); Respiratory Syncytial Virus NOT DETECTED (NOT DETECTE); SARS-CoV-2 NOT DETECTED (NOT DETECTE)
--- NOTE | 2023-07-30 08:05 | P.DS_ITS ---
DS: Providers Provider Date of admission: 07/29/23 18:45 Primary care physician: Charlie Richardson MD Consults: 07/29/23 Consult to [employer] Routine Reason for consult:: Food/Nutrition DS: Diagnosis Discharge Diagnosis (1) Acute kidney injury: Plan Acute elevation of BUN and creatinine consistent with acute kidney injury-no renal failure, significant leukocytosis that is improving this morning. Recent NSTEMI-possible demand ischemia from the pneumonia Leukocytosis Thrombocythemia Hyponatremia secondary to dehydration Hyperglycemia secondary to steroids DS: Summary Hospital Course Hospital Course: Patient admitted with increasing weakness and cough and some dyspnea. Found to have acute kidney injury no renal failure, secondary to dehydration. Given gentle fluids overnight with improvement. On exam is morning to me she feels back to baseline with lungs being clear. She has follow-up visit with cardiology tomorrow. If she progresses well this morning she will be discharged home in improving condition. Medications see list. Follow-up with cardiology and me as already arranged Time Spent with Patient Time attestation: Total time spent providing and/or coordinating discharge services: Exam Constitutional Vital Signs, click to edit/add: Last Vital Signs Temp 97.5 F L 07/30/23 04:00 Pulse 76 07/30/23 07:56 Resp 18 07/30/23 04:00 BP 101/68 07/30/23 04:00 Pulse Ox 91 L 07/30/23 04:00 O2 Del Method Room Air 07/30/23 04:00 Common normals: no apparent distress General appearance: cooperative and comfortable HENND Common normals: normocephalic Face and sinus: normal facial exam Chest Chest: pacemaker Respiratory Common normals: normal respiratory effort, no retractions and clear to auscultation bilaterally Cardio Common normals: no JVD, regular rate, regular rhythm, S1 normal heart sound, S2 normal heart sound, no gallops, no clicks, no murmurs, no rub and peripheral pulses 2+ throughout GI Common normals: Normal to inspection, nondistended, normoactive bowel sounds present Extremity Common normals: normal to inspection, full ROM, normal capillary refill, no joint enlargement, no clubbing, cyanosis or edema, no calf tenderness and no pedal edema DS: Data Data Completed and Pending Labs on day of discharge: Labs from last 24 hours 07/30/23 07/29/23 07/29/23 05:00 19:38 17:18 WBC 18.6 H RBC 4.55 Hgb 12.4 Hct 40.2 MCV 88.4 MCH 27.3 MCHC 30.8 RDW 15.3 H Plt Count 427 MPV 9.8 Neut % (Auto) 65.7 Lymph % (Auto) 25.6 [place] % (Auto) 6.8 Eos % (Auto) 0.5 L Baso % (Auto) 0.2 Neut # (Auto) 12.2 H Lymph # (Auto) 4.8 H [place] # (Auto) 1.3 H Eos # (Auto) 0.1 Baso # (Auto) 0.0 Abs Immat Gran (auto) 0.22 H Imm/Tot Granulo (auto) 1.2 H PT INR APTT Sodium 135 L Potassium 4.8 Chloride 98 Carbon Dioxide 32.2 H Anion Gap 9.6 BUN 26.0 H Creatinine 1.04 H Est GFR ( Amer) >60 Est GFR (Non-Af Amer) 54 L BUN/Creatinine Ratio 25.0 Glucose 141 H Calcium 8.9 Troponin I High Sens 127.3 H* NT-Pro-B Natriuret Pep Urine Color Lt. yellow Urine Clarity Clear Urine pH 5.0 Ur Specific [place] 1.010 Urine Protein Negative Urine Glucose (UA) >=1000 A Urine Ketones Negative Urine Occult Blood Negative Urine Nitrite Negative Urine Bilirubin Negative Urine Urobilinogen 0.2 Ur Leukocyte Esterase Negative 07/29/23 16:15 WBC 24.0 H RBC 5.44 H Hgb 14.8 Hct 47.8 MCV 87.9 MCH 27.2 MCHC 31.0 RDW 15.2 H Plt Count 626 H MPV 9.7 Neut % (Auto) 79.7 H Lymph % (Auto) 13.7 L [place] % (Auto) 4.4 Eos % (Auto) 0.7 L Baso % (Auto) 0.3 Neut # (Auto) 19.2 H Lymph # (Auto) 3.3 [place] # (Auto) 1.1 H Eos # (Auto) 0.2 Baso # (Auto) 0.1 Abs Immat Gran (auto) 0.29 H Imm/Tot Granulo (auto) 1.2 H PT 9.3 INR <0.93 APTT 23.6 Sodium 131 L Potassium 5.1 Chloride 93 L Carbon Dioxide 27.3 Anion Gap 15.8 BUN 28.0 H Creatinine 1.46 H Est GFR ( Amer) 44 L Est GFR (Non-Af Amer) 36 L BUN/Creatinine Ratio 19.2 Glucose 341 H Calcium 9.7 Troponin I High Sens 142.0 H* NT-Pro-B Natriuret Pep 376.0 Urine Color Urine Clarity Urine pH Ur Specific [place] Urine Protein Urine Glucose (UA) Urine Ketones Urine Occult Blood Urine Nitrite Urine Bilirubin Urine Urobilinogen Ur Leukocyte Esterase Discharge Plan Discharge Disposition: Home, Self-Care Condition: Good Discharge Medications: Continued pantoprazole 40 mg tablet,delayed release (DR/EC) 40 mg PO DAILY Patient Comments: pt is out of med albuterol sulfate 90 mcg/actuation HFA aerosol inhaler 2 puff INHALATION Q6H PRN (Reason: shortness of breath or wheezing) furosemide 40 mg tablet 40 mg PO QAM spironolactone 25 mg tablet 25 mg PO QAM prednisone 10 mg tablet 30 mg PO DAILY Qty: 20 0RF Patient Comments: pt states that she is on the 2 tabs daily for 3 days Rx Instructions: 3/day for 3 days, 2/day for 3 days, 1/day for 3 days, 1/2 /day for 4 days atorvastatin 80 mg tablet 80 mg PO DAILY carvedilol 6.25 mg tablet 6.25 mg PO BID alprazolam 1 mg tablet 1 mg PO BID clopidogrel 75 mg tablet 75 mg PO DAILY aspirin 81 mg tablet,delayed release (DR/EC) 81 mg PO DAILY buspirone 10 mg tablet 10 mg PO BID gabapentin 300 mg capsule 300 mg PO TID dapagliflozin propanediol [Farxiga] 10 mg tablet 10 mg PO DAILY trazodone 50 mg tablet 50 mg PO DAILY levothyroxine 75 mcg Tablet 75 mcg PO ACB Qty: 30 11RF cyclobenzaprine 10 mg tablet 10 mg PO Q12H PRN (Reason: muscle spasm) cefdinir 300 mg capsule 300 mg PO BID Activity: increase activity as tolerated Diet: advance to your usual diet Print Language: Tongan Patient Instructions: Acute Kidney Injury (DC) Forms: Portal Instructions Follow Up Appointments: July 30 @ 10am with [facility] for a device check [phone] July 31 @ 2:30pm with Dr. Richardson [phone] Discharge Date/Time: 07/30/23 12:57
--- NOTE | 2023-07-30 08:05 | P.HP_ITS ---
HPI H&P: HPI History of Present Illness Chief complaint: SOB, Acute Anxiety, Acute Kidney Injury Narrative: Patient present to the emergency room with increasing weakness and some dyspnea. She was recently discharged for pneumonia as well as possible NSTEMI versus demand ischemia from the pneumonia. Patient continues to follow with cardiology. In ER her troponin is trending downward still. She did have some significant leukocytosis. As well as acute elevation in creatinine. Patient was admitted for hydration When I saw patient up on the medical surgical floor this morning, she looks back to her baseline. No conversational dyspnea. No cough throughout the entire evaluation. Opioid HPI Opioid Management Most Recent Opioid Data: Last Pain Assessment 07/30/23 08:00 Last ED Pain Assessment 07/22/23 05:11 Last MAR Pain Assessment 07/29/23 17:10 Last ORT Total Score 1 07/29/23 19:21 Last ORT Risk Category Low Risk 07/29/23 19:21 Ur Phencyclidine Scrn Negative (NEGATIVE) 06/10/23 09:30 Review of Systems ROS Status of ROS 10 or more systems reviewed and unremark able except as noted in history and [facility] (Updated 07/29/23 @ 17:23 by AARON Clifford) Coronary artery disease ?I25.10 - Atherosclerotic heart disease of [place] coronary artery without angina pectoris (ICD-10) Pacemaker ?Z95.0 - Presence of cardiac pacemaker (ICD-10) Iron deficiency anemia ?D50.9 - Iron deficiency anemia, unspecified (ICD-10) COPD (chronic obstructive pulmonary disease) ?J44.9 - Chronic obstructive pulmonary disease, unspecified (ICD-10) Hypoxia ?R09.02 - Hypoxemia (ICD-10) Elevated troponin ?R79.89 - Other specified abnormal findings of blood chemistry (ICD-10) Dyspnea ?R06.00 - Dyspnea, unspecified (ICD-10) Elevated brain natriuretic peptide (BNP) level ?R79.89 - Other specified abnormal findings of blood chemistry (ICD-10) Hypertension ?I10 - Essential (primary) hypertension (ICD-10) Elevated troponin ?R79.89 - Other specified abnormal findings of blood chemistry (ICD-10) Acute dyspnea ?R06.00 - Dyspnea, unspecified (ICD-10) IBS (irritable bowel syndrome) ?K58.9 - Irritable bowel syndrome without diarrhea (ICD-10) Anxiety ?F41.9 - Anxiety disorder, unspecified (ICD-10) Heart attack ?I21.9 - Acute myocardial infarction, unspecified (ICD-10) Sciatic leg pain ?M54.30 - Sciatica, unspecified side (ICD-10) Herniated disc, cervical ?M50.20 - Other cervical disc displacement, unspecified cervical region (ICD- 10) Surgical History History of appendectomy ?Z90.49 - Acquired absence of other specified parts of digestive tract (ICD- 10) History of heart artery stent ?Z95.5 - Presence of coronary angioplasty implant and graft (ICD-10) Family History (Updated 07/29/23 @ 19:32 by Consuelo Dejesus RN) Mother Family history of CHF (congestive heart failure) Family history of hypertension Father Family history of CHF (congestive heart failure) Brother Family history of CHF (congestive heart failure) Other Family history of diabetes mellitus Family history of myocardial infarction Social History (Updated 07/29/23 @ 19:35 by Consuelo Dejesus RN) Within the past year, how often did you have a drink containing alcohol: monthly or less Smoking status: Current every day smoker Nicotine containing products detail: 1 pack/week Non-prescribed substance use: cannabis (any form) Non-prescribed substance use details: smokes marijuana, gummies Highest level of school completed/degree received: high school graduate Are you now , , , , never or living with a partner: In a typical week, how many times do you talk on the telephone with family, friends, or neighbors: once per week How often do you get together with friends or relatives: never How often do you attend catholic or sikhism services: 4 or more times per year Do you belong to any clubs or organizations such as catholic groups unions, fraternal or athletic groups, or school groups: no Total score: 1 Score interpretation: A score of less than or equal to 1 indicates the most socially isolated. Little interest or pleasure in doing things: several days Feeling down, depressed, or hopeless: several days Feel stressed/tense/nervous/anxious/difficulty sleeping: very much Life stressors: recent of family or friend Life stressor details: 2020 lost family Do you think of yourself as: straight/heterosexual Gender Identity: female Meds Home Medications and Allergies Home Medications Medication Instructions Recorded Confirmed Type alprazolam 1 mg tablet 1 mg PO BID 06/10/23 07/29/23 History aspirin 81 mg tablet,delayed 81 mg PO DAILY 06/10/23 07/29/23 History release atorvastatin 80 mg tablet 80 mg PO DAILY 06/10/23 07/29/23 History buspirone 10 mg tablet 10 mg PO BID 06/10/23 07/29/23 History carvedilol 6.25 mg tablet 6.25 mg PO BID 06/10/23 07/29/23 History clopidogrel 75 mg tablet 75 mg PO DAILY 06/10/23 07/29/23 History dapagliflozin propanediol 10 mg 10 mg PO DAILY 06/10/23 07/29/23 History tablet (Farxiga) gabapentin 300 mg capsule 300 mg PO TID 06/10/23 07/29/23 History trazodone 50 mg tablet 50 mg PO DAILY 06/10/23 07/29/23 History levothyroxine 75 mcg tablet 75 mcg PO ACB #30 tabs 06/11/23 07/29/23 Rx albuterol sulfate 90 mcg/actuation 2 puff inhalation Q6H PRN 06/29/23 07/29/23 History aerosol inhaler shortness of breath or wheezing pantoprazole 40 mg tablet,delayed 40 mg PO DAILY 06/29/23 07/29/23 History release furosemide 40 mg tablet 40 mg PO QAM 07/23/23 07/29/23 History spironolactone 25 mg tablet 25 mg PO QAM 07/23/23 07/29/23 History prednisone 10 mg tablet 30 mg (3 x 10 mg) PO DAILY #20 tabs 07/25/23 07/29/23 Rx cefdinir 300 mg capsule 300 mg PO BID 07/29/23 07/29/23 History cyclobenzaprine 10 mg tablet 10 mg PO Q12H PRN muscle spasm 07/29/23 07/29/23 History Allergies Allergy/AdvReac Type Severity Reaction Status Date / Time No Known Drug Allergies Allergy Verified 06/29/23 03:50 Exam Constitutional Vital Signs, click to edit/add: Last Vital Signs Temp 97.5 F L 07/30/23 04:00 Pulse 76 07/30/23 07:56 Resp 18 07/30/23 04:00 BP 101/68 07/30/23 04:00 Pulse Ox 91 L 07/30/23 04:00 O2 Del Method Room Air 07/30/23 04:00 Common normals: no apparent distress General appearance: cooperative and comfortable [facility] Common normals: normocephalic Face and sinus: normal facial exam Chest Chest: pacemaker Respiratory Common normals: normal respiratory effort, no retractions and clear to auscult ation bilaterally Cardio Common normals: no JVD, regular rate, regular rhythm, S1 normal heart sound, S2 normal heart sound, no gallops, no clicks, no murmurs, no rub and peripheral pulses 2+ throughout GI Common normals: Normal to inspection, nondistended, normoactive bowel sounds present Extremity Common normals: normal to inspection, full ROM, normal capillary refill, no joint enlargement, no clubbing, cyanosis or edema, no calf tenderness and no pedal edema Results Labs Labs: Short CBC 07/29/23 07/30/23 Range/Units 16:15 05:00 WBC 24.0 H 18.6 H (4.0-11.0) 10^3/uL Hgb 14.8 12.4 (12.0-16.0) g/dL Hct 47.8 40.2 (36.0-48.0) % Plt Count 626 H 427 (150-450) 10^3/uL BMP 07/29/23 07/30/23 16:15 05:00 Sodium 131 L 135 L Potassium 5.1 4.8 Chloride 93 L 98 Carbon Dioxide 27.3 32.2 H BUN 28.0 H 26.0 H Creatinine 1.46 H 1.04 H Glucose 341 H 141 H Calcium 9.7 8.9 Urine 07/29/23 Range/Units 17:18 Urine Color Lt. yellow (YELLOW) Urine Clarity Clear (CLEAR) Urine pH 5.0 (5.0-9.0) Ur Specific [place] 1.010 (1.005-1.025) Urine Protein Negative (NEG/TRACE) mg/dL Urine Glucose (UA) >=1000 A (NEGATIVE) mg/dL Assessment and Plan Assessment and Plan (1) Acute kidney injury: (2) Acute anxiety: Plan Acute elevation of BUN and creatinine consistent with acute kidney injury-no renal failure, significant leukocytosis that is improving this morning. Patient mated for mild dehydration with significant hyponatremia that is also returned to normal. At this point if patient progresses well this morning and ambulating safely without hypoxia should be discharged home in improving condition. Medications see list. Follow-up with cardiology tomorrow and me following later this week. Recent NSTEMI-possible demand ischemia from the pneumonia as well. Continue to follow with cardiology. Troponins improving. Leukocytosis related to resolving pneumonia-improved Thrombocythemia-related to the infection improved Hyponatremia secondary to dehydration-improved Hyperglycemia secondary to steroids-improving Highly like patient discharged later today, maintain observation status
[2023-07-30] MEDS: BUSPIRONE HCL 10 MG TABLET PO (08:57)
[2023-07-30] MEDS: FUROSEMIDE 40 MG TABLET PO (08:57)
[2023-07-30] MEDS: PREDNISONE 10 MG TABLET 30 MG PO (08:57)
[2023-07-30] MEDS: ATORVASTATIN CALCIUM 40 MG TABLET 80 MG PO (08:57)
[2023-07-30] MEDS: ASPIRIN 81 MG TABLET.DR PO (08:58)
[2023-07-30] MEDS: CANAGLIFLOZIN 100 MG TABLET 300 MG PO (08:58)
[2023-07-30] MEDS: KETOROLAC TROMETHAMINE 30 MG/ML VIAL IVP (08:58)
[2023-07-30] MEDS: CARVEDILOL 6.25 MG TABLET PO (09:01)
[2023-07-30] MEDS: SPIRONOLACTONE 25 MG TABLET PO (09:01)
[2023-07-30] MEDS: ALPRAZOLAM 1 MG TABLET PO (09:01)
[2023-07-30] MEDS: CEFDINIR 300 MG CAPSULE 600 MG PO (09:01)
[2023-07-30] MEDS: CLOPIDOGREL BISULFATE 75 MG TABLET PO (09:01)
--- NOTE | 2023-07-30 09:53 | SWNOTE1 ---
STANFORD consulted for food/nutrition. STANFORD met with pt to discuss these needs. Pt voiced when she [facility] was getting [facility]. At that time it was through [facility]. She has applied again through [facility], but they said she is about $100 over the amount. She voiced she does get $23 on her food stamp card. SW suggested we apply again and see if she can get her food stamp amount increased. Pt called her bank to get her total amount of income monthly and to see what was in her checking account. SW assisted pt in completing medicaid [place]. Pt also voiced when she was at [facility] she had meals on wheels. She would like this again. STANFORD sent an email to Ramandeep at [facility] [employer] [facility] which included pt's name and phone number for Ramandeep to contact. STANFORD advised pt if she does not hear from [employer] by end of week to call STANFORD. STANFORD also advised if she does not hear from jobs [employer] family services within 3-4 weeks to contact STANFORD as well. Pt does voice she needs trips set up. SW to call trips. At this time pt does not have any other needs. Pt lives in an apartment and is able to walk to get her food if needed. Pt is having medical issues which makes walking to grocery store more complicated. SW to follow as needed.
--- NOTE | 2023-07-30 12:05 | CM.NOTE ---
Medicare Outpatient Observation Notice discussed with pt, pt verbalizes understanding and signs paper. Original given to pt and copy placed in pt's chart.
--- NOTE | 2023-07-31 15:50 | CM.DCFOLLOWU ---
07/30- Fast busy signal- 1st attempt
--- NOTE | 2023-08-01 14:28 | CM.NOTE ---
07/31) 14:25 2nd attempt to do discharge followup call and no answer.
--- NOTE | 2023-08-02 11:43 | SWNOTE1 ---
STANFORD received a phone call from pt. She voiced she received something in mail from [employer] and they wanted verification on her income and her monthly bills. Pt asked if we had included that on medicaid agapito. SW voiced we did put them on there, but [employer] may just want it verified. STANFORD recommended calling [facility] and see if she can speak to someone and verify it over the phone. STANFORD asked if Vivian needed the number and she voiced there was an [phone] number listed. STANFORD recommended calling. STANFORD advised Vivian to call back if any further questions.
== END 2023-07-30 12:57 | disposition home or self-care (01) ==
LOC: ER 17:23 → MS 18:50
PROVIDERS: Family Medicine; Personal Emergency Response Attendant; Admitting Provider Family Medicine; Emergency Provider Emergency Medicine; PCP Family Medicine; Visit Provider Family Medicine
DX: E86.0 Dehydration (principal); E87.1 Hypo-osmolality and hyponatremia; N17.9 Acute kidney failure, unspecified; F41.9 Anxiety disorder, unspecified; D72.829 Elevated white blood cell count, unspecified; D75.839 Thrombocytosis, unspecified; I21.4 Non-ST elevation (NSTEMI) myocardial infarction; R73.9 Hyperglycemia, unspecified; T38.0X5A Adverse effect of glucocorticoids and synthetic analogues, initial encounter; I25.10 Atherosclerotic heart disease of native coronary artery without angina pectoris; J44.9 Chronic obstructive pulmonary disease, unspecified; I10 Essential (primary) hypertension; K58.9 Irritable bowel syndrome, unspecified; R06.02 Shortness of breath; Z20.822 Contact with and (suspected) exposure to COVID-19; F17.210 Nicotine dependence, cigarettes, uncomplicated; F12.90 Cannabis use, unspecified, uncomplicated; Z90.49 Acquired absence of other specified parts of digestive tract; Z95.5 Presence of coronary angioplasty implant and graft; Z95.0 Presence of cardiac pacemaker; Z79.82 Long term (current) use of aspirin; Z79.899 Other long term (current) drug therapy; Z87.01 Personal history of pneumonia (recurrent)
CPT/HCPCS: 0202U; 36415; 71045; 80048; 81003; 83880; 84484; 85025; 85610; 85730; 93005; 96361; 96374; 96375; 96376; 99285; G0378

== ENCOUNTER 2023-07-31 09:45 | Outpatient (OUT) | payer OTHER, SELFPAY ==
--- NOTE | 2023-07-31 10:06 | XR_ITS ---
The [address] [address] Patient Name: EMERY JETT MRN: [id number] date: 1960 Sex: F Assigned Patient Location: [facility] Current Patient Location: [facility] Accession/Order Number: [id number] Exam Date: 07/31/2023 10:00 Report Date: 07/31/2023 10:43 At the request of: NON-STAFF PHYSICIAN Procedure: XR chest 2V EXAM: XR chest 2V HISTORY: Breakdown Mechanical Of Cardiac Electrode T82.110A COMPARISON: None. TECHNIQUE: PA and lateral views of the chest. FINDINGS: The cardiomediastinal silhouette is normal. Left-sided cardiac pacemaker. No focal consolidation is identified. There is no pneumothorax. No pleural effusion is noted. The osseous structures are intact. XR/XR chest 2V IMPRESSION: No acute cardiopulmonary process. Suggestion of COPD. Electronically authenticated by: FRANCISCO AGUILAR Date: 07/31/2023 10:43
--- OUTSIDE RECORDS SUMMARY | 2023-07-31 10:13 | XMS_ITS | CCD ---
Author Organization [facility] Care Team Providers Care Manager Green Name Role Phone KEISHA DORADO JR Attending Unavailable PATRICIA CORDERO Primary Care Unavailable TAMIE FAJARDO Attending Unavailable UMAIR MANDUJANO Admitting Unavailable GASPER AVENDANO Referring Unavailable ЕКАТЕРИНА ROBERT Primary Care Unavailable Екатерина Robert Primary Care Physician JAKOB Dunn, DR WILLAMS Consulting Unavailable JOSELINEY ., DR WILLAMS Attending Unavailable HOY ., DR WILLAMS Admitting Unavailable JAKOB ., DR WILLAMS Primary Care Unavailable HERMELINDA, DR KIRK Viera Consulting Unavailable MATTEO NGO Consulting Unavailable LINDA MARRERO Consulting Unavailable SHAKEEL DEEARET Consulting Unavailable JAKOB ., DR WILLAMS Consulting Unavailable HOY ., DR WILLAMS Attending Unavailable JOSELINEY ., DR WILLAMS Admitting Unavailable JAKOB ., DR WILLAMS Primary Care Unavailable WINIFRED, DR [...] WILLAMS Admitting Unavailable HOY ., DR WILLAMS Consulting Unavailable HOY ., DR WILLAMS Attending Unavailable HOY ., DR WILLAMS Admleighann Unavailable JAKOB ., DR WILLAMS Primary Care Unavailable ARELI, DR CHANTEL Valenzuela Consulting Unavailable DENEEN ., DR SHEPHERD Consulting Unavailable JOSELINEY ., DR WILLAMS Consulting Unavailable HOY ., [...] UMAIR Referring Unavailable DELBERT, UMAIR Admitting Unavailable GANGMERCEDES, BARRETT LARSON Consulting Unavailab ARSENIO Chappell Referring Unavailable DANUTA KNOX Attending Unavailable MARKER, SOCORRO Zayas Referring Unavailable KATHARINECHADD MEEK Attending Unavailable SCOTTY, HANI Admitting Unavailable DELBERT, UMAIR Referring Unavailable MERLE, LOREE Referring Unavailable GANGWANI, MANESH LARSON Referring Unavailab le GANGWANI, MANESH LARSON Referring Unavailab le Bullimore, Magdalena E Attending Unavailable Сергейore, Magdalena E Admitting Unavailable Екатерина Robert Primary Care Unavailable Allergies Allergy Classification Reported Allergen(s) Allergy Type Date of Onset Reaction(s) Facility (1 source) bee venom Drug allergy (disorder) 1 [facility] Repository (1 source) house dust allergenic extract; 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: [HOUSE DUST] Drug Allergy [address] [facility] Repository (1 source) HAY FEVER AND ALLERGY RELIEF; 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: [HAY FEVER AND ALLERGY RELIEF] Propensity to adverse reactions to drug (disorder) [address] [facility] Repository Medications Current Medications Medication Drug Class(es) Dates Sig (Normalized) Sig (Original) albuterol HFA 90 mcg/inh MDI (2 sources) Start: 03-14-20 21 take 2 puff(s) by inhalation every four hours albuterol HFA 90 mcg/inh MDI 2 puff(s), Inhalation, q4hr, Refill(s) 0 Start Date: 03/14/21 Status: Ordered brompheniramine maleate 0.4 mg/ml / dextromethorphan hydrobromide 2 mg/ml / pseudoephedrine hydrochloride 6 mg/ml oral solution (2 sources) alpha-Adrenergic Agonist, Uncompetitive D-ygcwbu-D-aspart ate Receptor Antagonist, Sigma-1 Agonist Start: 08-10-19 [...] day(s), # 14 tab(s), Refills(s) 0, [facility], 170.2, cm, 08/09/22 13:13:00 EDT, Height/Length [...] day(s), # 15 tab(s), Refills(s) 0, [facility]: [facility], 170.2, cm, 08/09/22 13:13:00 EDT, Height/Length [...] disease (6 sources) Atherosclerotic heart disease of [place] coronary artery without angina pectoris; 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: [Old [...] 2 Chronic Other aftercare (1 source) Other superintendent terminal (current) drug therapy; 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: [OTH 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 DEVELOPMENT COORDINATOR RN CURRENT DRUG THERAPY] Onset: 3 Episodic Other aftercare (1 source) 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; 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: [STAFF DEVELOPMENT COORDINATOR RN CURRENT USE OF ASPIRIN] Onset: 3 Episodic Other aftercare (1 source) 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 Tried calling pts ER contact but it is a food pantry and was only a VM option. Did not leave message. [facility] 07-11-2023 30 The patient is Moderately Stable - Low risk of patient condition declining or worsening The patient's goals for the shift include pain control The clinical goals for the shift include maintain pacemaker precautions Over the shift, the patient did not make progress toward the following goals. Barriers to progression include na. Recommendations to address these barriers include na. [facility] 30 The patient is Moderately Stable - [...] safe level of function Outcome: Progressing Normal [facility] BASIC METABOLIC PANELon - Anion gap [Moles/Vol] 15 mmol/L Normal 7-20 [facility] Comment on above: Performed By: #### L [id number] #### [facility] (AKER) [address] [place] [address] Calcium [Mass/Vol] 9.4 mg/dL Normal 8.6-10.[address] [facility] Comment on above: Performed By: #### L [id number] #### [facility] (AKER) [address] [place] [address] Chloride [Moles/Vol] 97 mmol/L Low 98-107 [facility] Comment on above: Performed By: #### L [id number] #### [facility] (BEAKER) [address] [place] [address] CO2 [Moles/Vol] 27 mmol/L Normal 21-31 [facility] Comment on above: Performed By: #### L [id number] #### [facility] (AKER) [address] [place] [address] Creatinine [Mass/Vol] 1.15 mg/dL Normal 0.60-1.20 [facility] Comment on above: Performed By: #### L [id number] #### [facility] ([facility]) [address] [place] [address] GLOMERULAR FILTRATION RATE ML/MIN/1.73 SQ M.PREDICTED 53.9 mL/min/1.73m*2 Low >60.0 [facility] Comment on above: Result Comment: [facility]???s estimated glomerular filtration rate (eGFR) will [...] individuals. Performed By: #### L [id number] #### [facility] ([facility]) [address] [place] [address] Glucose [Mass/Vol] 143 mg/dL High 70-[address] [facility] Comment on above: Performed By: #### L [id number] #### [facility] ([facility]) [address] [place] [address] Potassium [Moles/Vol] 3.9 mmol/L Normal 3.5-5.1 [facility] Comment on above: Performed By: #### L [id number] #### [facility] ([facility]) [address] [place] [address] Sodium [Moles/Vol] 135 mmol/L Low 136-[address] [facility] Comment on above: Performed By: #### L [id number] #### [facility] ([facility]) [address] [place] [address] Urea nitrogen [Mass/Vol] 32 mg/dL High 7-[address] [facility] Comment on above: Performed By: #### L [id number] #### [facility] ([facility]) [address] [place] [address] UREA NITROGEN/CREATININE (MASS RATIO) IN SER/PLAS 27.[address] [facility] Comment on above: Performed By: #### L [id number] #### [facility] ([facility]) [address] [place] [address] CBC WITH AUTO DIFFERENTIALon 07-11-2023 Basophils (Bld) [#/Vol] 0.03 10*3/uL Normal 0.00-0.[address] [facility] Comment on above: Performed By: #### L [id number] #### [facility] ([facility]) [address] [facility] [address] Basophils/100 WBC (Bld) 0.3 % Normal 0.0-1.[address] [facility] Comment on above: Performed By: #### L [id number] #### [facility] ([facility]) [address] [place] [address] Eosinophils (Bld) [#/Vol] 0.32 10*3/uL Normal 0.00-0.[address] [facility] Comment on above: Performed By: #### L [id number] #### [facility] ([facility]) [address] [place] [address] Eosinophils/100 WBC (Bld) 2.8 % Normal 0.0-6.[address] [facility] Comment on above: Performed By: #### L [id number] #### [facility] ([facility]) [address] [facility] [place] [address] Erythrocyte distribution width (RBC) [Ratio] 15.3 % High 11.5-15.[address] [facility] Comment on above: Performed By: #### L [id number] #### [facility] ([facility]) [address] [place] [address] ERYTHROCYTE MEAN CORPUSCULAR HEMOGLOBIN CONCENTRATION (G/DL) BY AUTOMATED 32.0 g/dL Normal 32.0-35.[address] [facility] Comment on above: Performed By: #### L [id number] #### [facility] [address] [place] [address] Hematocrit (Bld) [Volume fraction] 40.9 % Normal 36.0-48.[address] [facility] Comment on above: Performed By: #### L [id number] #### [facility] [address] [place] [address] Hemoglobin (Bld) [Mass/Vol] 13.1 g/dL Normal 12.0-15.[address] [facility] Comment on above: Performed By: #### L [id number] #### [facility] ([facility]) [address] [place] [address] Immature granulocytes (Bld) [#/Vol] 0.04 10*3/uL Normal 0.00-0.[address] [facility] Comment on above: Performed By: #### L [id number] #### [facility] ([facility]) [address] [place] [address] Immature granulocytes/100 WBC (Bld) 0.3 % Normal 0.0-1.[address] [facility] Comment on above: Performed By: #### L [id number] #### [facility] ([facility]) [address] [place] [address] Lymphocytes (Bld) [#/Vol] 3.16 10*3/uL Normal 1.20-4.[address] [facility] Comment on above: Performed By: #### L [id number] #### [facility] (BEAKER) [address] [place] [address] Lymphocytes/100 WBC (Bld) 27.4 % Normal 20.0-45.[address] [facility] Comment on above: Performed By: #### L [id number] #### [facility] ([facility]) [address] [facility] [place] [address] MCH (RBC) [Entitic mass] 27.9 pg Normal 27.0-33.[address] [facility] Comment on above: Performed By: #### L [id number] #### [facility] (BEAK[facility]) [address] [place] [address] MCV (RBC) [Entitic vol] 87.0 fL Normal 82.0-98.[address] [facility] Comment on above: Performed By: #### L [id number] #### [facility] ([facility]) [address] [place] [address] Monocytes (Bld) [#/Vol] 0.85 10*3/uL Normal 0.10-1.[address] [facility] Comment on above: Performed By: #### L [id number] #### [facility] ([facility]) [address] [place] [address] Monocytes/100 WBC (Bld) 7.4 % Normal 5.0-12.[address] [facility] Comment on above: Performed By: #### L [id number] #### [facility] ([facility]) [address] [place] [address] Neutrophils (Bld) [#/Vol] 7.12 10*3/uL Normal 1.60-7.[address] [facility] Comment on above: Performed By: #### L [id number] #### [facility] ([facility]) [address] [place] [address] Neutrophils/100 WBC (Bld) 61.8 % Normal 40.0-72.[address] [facility] Comment on above: Performed By: #### L [id number] #### [facility] ([facility]) [address] [place] [address] NRBC (PER 100 WBCS) BY AUTOMATED COUNT 0.0 % Normal [address] [facility] Comment on above: Performed By: #### L [id number] #### [facility] ([facility]) [address] [place] [address] PLATELETS (10*3/UL) IN BLOOD AUTOMATED COUNT 339 10*3/uL Normal 150-[address] [facility] Comment on above: Performed By: #### L [id number] #### [facility] ([facility]) [address] [place] [address] RBC (Bld) [#/Vol] 4.70 10*6/uL Normal 3.80-5.00 [facility] Comment on above: Performed By: #### L [id number] #### [facility] ([facility]) [address] [facility] [place] [address] WBC (Bld) [#/Vol] 11.52 10*3/uL High 4.00-10.60 [facility] Comment on above: Performed By: #### L [id number] #### [facility] ([facility]) [address] [facility] [place] [address] 30on 07-10-2023 30 Problem: Pain - Adul [...] complex ne (more content not included)... Normal [facility] 30 Daily Case Managemen t Update [...] Consultation Consultation and Management 07/06/[address] [facility] 30 The patient is Moderately Stable [...] Progressing Flowsheets (Taken 07/09/2023 0750 by Emerald Curtis, JESU) Free from fall injury: Assess patient frequently for physical needs Identify cognitive and physical deficits and behaviors that affect risk of falls [place] fall precautions as indicated by assessment Educate patient/family on patient safety, including physical limitations Instruct patient to call for assistance with activity based on assessment Modify environment to reduce risk of injury Consider OT/PT consult to assist with strengthening/mobilit y Problem: Discharge Planning Goal: Discharge to home or other facility with appropriate resources Outcome: Progressing Flowsheets (Taken 07/09/2023 0815 by Emerald Curtis, JESU) Discharge to home or other facility with [...] maintained or improved Outcome: Progressing Flowsheets (Taken 07/09/2023 0815 by Emerald Curtis RN) Care Plan - [...] and prevent overall improvement and discharge Normal [facility] BASIC METABOLIC PANELon 06-15 Anion gap [Moles/Vol] 13 mmol/L Normal 7-20 [facility] Comment on above: Performed By: #### L [id number] ####[facility] ([facility])[address] [place] [address] Calcium [Mass/Vol] 9.9 mg/dL Normal 8.6-10.[address] [facility] Comment on above: Performed By: #### L [id number] ####[facility] ([facility] [place] [address] Chloride [Moles/Vol] 97 mmol/L Low 98-107 [facility] Comment on above: Performed By: #### L [id number] ####[facility] ([facility]AKER)[address] [place] [address] CO2 [Moles/Vol] 30 mmol/L Normal 21-31 [facility] Comment on above: Performed By: #### L [id number] ####[facility] (BEAKER)[address] [place] [address] Creatinine [Mass/Vol] 1.06 mg/dL Normal 0.60-1.20 [facility] Comment on above: Performed By: #### L [id number] ####[facility] ([facility])[address] [place] [address] GLOMERULAR FILTRATION RATE ML/MIN/1.73 SQ M.PREDICTED 59.4 mL/min/1.73m*2 Low >60.0 [facility] Comment on above: Result Comment: [facility]???s estimated glomerular filtration rate (eGFR) will [...] of individuals. Performed By: #### L [id number] ####[facility] ([facility])[address] [place] [address] Glucose [Mass/Vol] 139 mg/dL High 70-[address] [facility] Comment on above: Performed By: #### L [id number] ####[facility] ([facility])[address] [place] [address] Potassium [Moles/Vol] 3.9 mmol/L Normal 3.5-5.1 [facility] Comment on above: Performed By: #### L [id number] ####[facility] ([facility])[address] [place] [address] Sodium [Moles/Vol] 136 mmol/L Normal 136-[address] [facility] Comment on above: Performed By: #### L [id number] ####[facility] ([facility] [place] [address] Urea nitrogen [Mass/Vol] 23 mg/dL Normal 7-[address] [facility] Comment on above: Performed By: #### L [id number] ####[facility] ([facility])[address] [place] [address] UREA NITROGEN/CREATININE (MASS RATIO) IN SER/PLAS 21.[address] [facility] Comment on above: Performed By: #### L [id number] ####[facility] ([facility]AKER)[address] [place] [address] CBC WITH AUTO DIFFERENTIALon 07-10-2023 Basophils (Bld) [#/Vol] 0.02 10*3/uL Normal 0.00-0.[address] [facility] Comment on above: Performed By: #### L [id number] ####[facility] [place] [address] Basophils/100 WBC (Bld) 0.2 % Normal 0.0-1.[address] [facility] Comment on above: Performed By: #### L [id number] ####[facility] [place] [address] Eosinophils (Bld) [#/Vol] 0.53 10*3/uL High 0.00-0.[address] [facility] Comment on above: Performed By: #### L [id number] ####[facility] ([facility])[address] [place] [address] Eosinophils/100 WBC (Bld) 5.0 % Normal 0.0-6.[address] [facility] Comment on above: Performed By: #### L [id number] ####[facility] ([facility])[address] [place] [address] Erythrocyte distribution width (RBC) [Ratio] 15.3 % High 11.5-15.[address] [facility] Comment on above: Performed By: #### L [id number] ####[facility] ([facility] [place] [address] ERYTHROCYTE MEAN CORPUSCULAR HEMOGLOBIN CONCENTRATION (G/DL) BY AUTOMATED 32.9 g/dL Normal 32.0-35.[address] [facility] Comment on above: Performed By: #### L [id number] ####[facility] [place] [address] Hematocrit (Bld) [Volume fraction] 42.6 % Normal 36.0-48.[address] [facility] Comment on above: Performed By: #### L [id number] ####[facility] (BEAKER)[address] [place] [address] Hemoglobin (Bld) [Mass/Vol] 14.0 g/dL Normal 12.0-15.[address] [facility] Comment on above: Performed By: #### L [id number] ####[facility] (BE[facility]ER)[address] [place] [address] Immature granulocytes (Bld) [#/Vol] 0.02 10*3/uL Normal 0.00-0.[address] [facility] Comment on above: Performed By: #### L [id number] ####[facility] (BEAKER)[address] [place] [address] Immature granulocytes/100 WBC (Bld) 0.2 % Normal 0.0-1.[address] [facility] Comment on above: Performed By: #### L [id number] ####[facility] (BEAKER)[address] [place] [address] Lymphocytes (Bld) [#/Vol] 3.34 10*3/uL Normal 1.20-4.[address] [facility] Comment on above: Performed By: #### L [id number] ####[facility] ([facility]ER)[address] [place] [address] Lymphocytes/100 WBC (Bld) 31.7 % Normal 20.0-45.[address] [facility] Comment on above: Performed By: #### L [id number] ####[facility] ([facility]ER)[address] [place] [address] MCH (RBC) [Entitic mass] 28.3 pg Normal 27.0-33.[address] [facility] Comment on above: Performed By: #### L [id number] ####[facility] ([facility]ER)[address] [place] [address] MCV (RBC) [Entitic vol] 86.2 fL Normal 82.0-98.[address] [facility] Comment on above: Performed By: #### L [id number] ####[facility] ([facility]ER)[address] [place] [address] Monocytes (Bld) [#/Vol] 0.60 10*3/uL Normal 0.10-1.[address] [facility] Comment on above: Performed By: #### L [id number] ####[facility] [place] [address] Monocytes/100 WBC (Bld) 5.7 % Normal 5.0-12.[address] [facility] Comment on above: Performed By: #### L [id number] ####[facility] ([facility])[address] [place] [address] Neutrophils (Bld) [#/Vol] 6.01 10*3/uL Normal 1.60-7.[address] [facility] Comment on above: Performed By: #### L [id number] ####[facility] ([facility])[address] [place] [address] Neutrophils/100 WBC (Bld) 57.2 % Normal 40.0-72.[address] [facility] Comment on above: Performed By: #### L [id number] ####[facility] ([facility])[address] [place] [address] NRBC (PER 100 WBCS) BY AUTOMATED COUNT 0.0 % Normal [address] [facility] Comment on above: Performed By: #### L [id number] ####[facility] ([facility])[address] [place] [address] PLATELETS (10*3/UL) IN BLOOD AUTOMATED COUNT 329 10*3/uL Normal 150-[address] [facility] Comment on above: Performed By: #### L [id number] ####[facility] [place] [address] RBC (Bld) [#/Vol] 4.94 10*6/uL Normal 3.80-5.00 [facility] Comment on above: Performed By: #### L [id number] ####[facility] ([facility])[address] [place] [address] WBC (Bld) [#/Vol] 10.52 10*3/uL Normal 4.00-10.60 [facility] Comment on above: Performed By: #### L [id number] ####[facility] (BEAKER)[address] [place] [address] on 07-10-2023 History Of Present Illness Vivian Vann is [...] Problems: Junctional bradycardia Pacemaker Loree Chance MD [facility] 30on 07-09-2023 30 Problem: Cardiovascular - Adult [...] shift include pacemaker placement without issues Normal [facility] 30 Daily Case Managemen t Update [...] Consultation Consultation and Management 07/06/[address] [facility] BASIC METABOLIC PANELon 06-15 Anion gap [Moles/Vol] 9 mmol/L Normal 7-20 [facility] Comment on above: Performed By: #### L [id number] #### [facility] ([facility]) [address] [place] [address] Calcium [Mass/Vol] 9.1 mg/dL Normal 8.6-10.[address] [facility] Comment on above: Performed By: #### L [id number] #### [facility] ([facility]) [address] [place] [address] Chloride [Moles/Vol] 99 mmol/L Normal 98-107 [facility] Comment on above: Performed By: #### L [id number] #### [facility] ([facility]) [address] [place] [address] CO2 [Moles/Vol] 32 mmol/L High 21-31 [facility] Comment on above: Performed By: #### L [id number] #### [facility] ([facility]) [address] [place] [address] Creatinine [Mass/Vol] 0.98 mg/dL Normal 0.60-1.20 [facility] Comment on above: Performed By: #### L [id number] #### [facility] ([facility]) [address] [place] [address] GLOMERULAR FILTRATION RATE ML/MIN/1.73 SQ M.PREDICTED 65.3 mL/min/1.73m*2 Normal >60.0 [facility] Comment on above: Result Comment: [facility]???s estimated glomerular filtration rate (eGFR) will [...] individuals. Performed By: #### L [id number] #### [facility] ([facility]) [address] [place] [address] Glucose [Mass/Vol] 131 mg/dL High 70-[address] [facility] Comment on above: Performed By: #### L [id number] #### [facility] ([facility]) [address] [place] [address] Potassium [Moles/Vol] 4.3 mmol/L Normal 3.5-5.1 [facility] Comment on above: Performed By: #### L [id number] #### [facility] ([facility]) [address] [place] [address] Sodium [Moles/Vol] 136 mmol/L Normal 136-[address] [facility] Comment on above: Performed By: #### L [id number] #### [facility] ([facility]) [address] [place] [address] Urea nitrogen [Mass/Vol] 23 mg/dL Normal 7-[address] [facility] Comment on above: Performed By: #### L [id number] #### [facility] ([facility]) [address] [place] [address] UREA NITROGEN/CREATININE (MASS RATIO) IN SER/PLAS 23.[address] [facility] Comment on above: Performed By: #### L [id number] #### [facility] ([facility]) [address] [place] [address] CBC WITH AUTO DIFFERENTIALon 07-09-2023 Basophils (Bld) [#/Vol] 0.03 10*3/uL Normal 0.00-0.[address] [facility] Comment on above: Performed By: #### L [id number] #### [facility] ([facility]) [address] [place] [address] Basophils/100 WBC (Bld) 0.3 % Normal 0.0-1.[address] [facility] Comment on above: Performed By: #### L [id number] #### [facility] ([facility]ER) [address] [place] [address] Eosinophils (Bld) [#/Vol] 0.54 10*3/uL High 0.00-0.[address] [facility] Comment on above: Performed By: #### L [id number] #### [facility] ([facility]) [address] [place] [address] Eosinophils/100 WBC (Bld) 4.9 % Normal 0.0-6.[address] [facility] Comment on above: Performed By: #### L [id number] #### [facility] ([facility]) [address] [place] [address] Erythrocyte distribution width (RBC) [Ratio] 15.0 % Normal 11.5-15.[address] [facility] Comment on above: Performed By: #### L [id number] #### [facility] ([facility]) [address] [place] [address] ERYTHROCYTE MEAN CORPUSCULAR HEMOGLOBIN CONCENTRATION (G/DL) BY AUTOMATED 32.8 g/dL Normal 32.0-35.[address] [facility] Comment on above: Performed By: #### L [id number] #### [facility] ([facility]) [address] [place] [address] Hematocrit (Bld) [Volume fraction] 37.5 % Normal 36.0-48.[address] [facility] Comment on above: Performed By: #### L [id number] #### [facility] ([facility]) [address] [place] [address] Hemoglobin (Bld) [Mass/Vol] 12.3 g/dL Normal 12.0-15.[address] [facility] Comment on above: Performed By: #### L [id number] #### [facility] [address] [place] [address] Immature granulocytes (Bld) [#/Vol] 0.03 10*3/uL Normal 0.00-0.[address] [facility] Comment on above: Performed By: #### L [id number] #### [facility] ([facility]) [address] [place] [address] Immature granulocytes/100 WBC (Bld) 0.3 % Normal 0.0-1.[address] [facility] Comment on above: Performed By: #### L [id number] #### [facility] [address] [place] [address] Lymphocytes (Bld) [#/Vol] 3.76 10*3/uL Normal 1.20-4.[address] [facility] Comment on above: Performed By: #### L [id number] #### [facility] ([facility]) [address] [place] [address] Lymphocytes/100 WBC (Bld) 34.1 % Normal 20.0-45.[address] [facility] Comment on above: Performed By: #### L [id number] #### [facility] ([facility]) [address] [place] [address] MCH (RBC) [Entitic mass] 28.5 pg Normal 27.0-33.[address] [facility] Comment on above: Performed By: #### L [id number] #### [facility] ([facility]) [address] [place] [address] MCV (RBC) [Entitic vol] 87.0 fL Normal 82.0-98.[address] [facility] Comment on above: Performed By: #### L [id number] #### [facility] [address] [place] [address] Monocytes (Bld) [#/Vol] 0.64 10*3/uL Normal 0.10-1.[address] [facility] Comment on above: Performed By: #### L [id number] #### [facility] [address] [place] [address] Monocytes/100 WBC (Bld) 5.8 % Normal 5.0-12.[address] [facility] Comment on above: Performed By: #### L [id number] #### [facility] [address] [place] [address] Neutrophils (Bld) [#/Vol] 6.03 10*3/uL Normal 1.60-7.[address] [facility] Comment on above: Performed By: #### L [id number] #### [facility] [address] [place] [address] Neutrophils/100 WBC (Bld) 54.6 % Normal 40.0-72.[address] [facility] Comment on above: Performed By: #### L [id number] #### [facility] ([facility]) [address] [place] [address] NRBC (PER 100 WBCS) BY AUTOMATED COUNT 0.0 % Normal [address] [facility] Comment on above: Performed By: #### L [id number] #### [facility] ([facility]) [address] [place] [address] PLATELETS (10*3/UL) IN BLOOD AUTOMATED COUNT 285 10*3/uL Normal 150-[address] [facility] Comment on above: Performed By: #### L [id number] #### [facility] ([facility]) [address] [place] [address] RBC (Bld) [#/Vol] 4.31 10*6/uL Normal 3.80-5.00 [facility] Comment on above: Performed By: #### L [id number] #### [facility] [address] [place] [address] WBC (Bld) [#/Vol] 11.03 10*3/uL High 4.00-10.60 [facility] Comment on above: Performed By: #### L [id number] #### [facility] ([facility]) [address] [place] [address] 30on 07-08-2023 30 The patient is Moderately [...] Maintains adequate nutritional intake Outcome: Progressing Normal [facility] 30 Problem: Cardiovascular - Adult Goal: [...] for the shift include stable bp Normal [facility] BASIC METABOLIC PANELon 06-15 Anion gap [Moles/Vol] 10 mmol/L Normal 7-20 [facility] Comment on above: Performed By: #### L [id number] ####[facility] ([facility])[address] [place] [address] Calcium [Mass/Vol] 9.0 mg/dL Normal 8.6-10.[address] [facility] Comment on above: Performed By: #### L [id number] ####[facility] ([facility])[address] [place] [address] Chloride [Moles/Vol] 97 mmol/L Low 98-107 [facility] Comment on above: Performed By: #### L [id number] ####[facility] ([facility])[address] [place] [address] CO2 [Moles/Vol] 33 mmol/L High 21-31 [facility] Comment on above: Performed By: #### L [id number] ####[facility] ([facility])[address] [facility] [place] [address] Creatinine [Mass/Vol] 1.30 mg/dL High 0.60-1.20 [facility] Comment on above: Performed By: #### L [id number] ####[facility] ([facility])[address] [place] [address] GLOMERULAR FILTRATION RATE ML/MIN/1.73 SQ M.PREDICTED 46.5 mL/min/1.73m*2 Low >60.0 [facility] Comment on above: Result Comment: [facility]???s estimated glomerular filtration rate (eGFR) will [...] of individuals. Performed By: #### L [id number] ####[facility] ([facility])[address] [place] [address] Glucose [Mass/Vol] 214 mg/dL High 70-[address] [facility] Comment on above: Performed By: #### L [id number] ####[facility] ([facility])[address] [place] [address] Potassium [Moles/Vol] 3.9 mmol/L Normal 3.5-5.1 [facility] Comment on above: Performed By: #### L [id number] ####[facility] ([facility])[address] [place] [address] Sodium [Moles/Vol] 136 mmol/L Normal 136-[address] [facility] Comment on above: Performed By: #### L [id number] ####[facility] ([facility])[address] [place] [address] Urea nitrogen [Mass/Vol] 26 mg/dL High 7-[address] [facility] Comment on above: Performed By: #### L [id number] ####[facility] ([facility])[address] [place] [address] UREA NITROGEN/CREATININE (MASS RATIO) IN SER/PLAS 20.[address] [facility] Comment on above: Performed By: #### L [id number] ####[facility] ([facility] [place] [address] CBC WITH AUTO DIFFERENTIALon 07-08-2023 Basophils (Bld) [#/Vol] 0.04 10*3/uL Normal 0.00-0.[address] [facility] Comment on above: Performed By: #### L [id number] #### [facility] ([facility]) [address] [place] [address] Basophils/100 WBC (Bld) 0.3 % Normal 0.0-1.[address] [facility] Comment on above: Performed By: #### L [id number] #### [facility] ([facility]) [address] [place] [address] Eosinophils (Bld) [#/Vol] 0.51 10*3/uL High 0.00-0.[address] [facility] Comment on above: Performed By: #### L [id number] #### [facility] ([facility]) [address] [place] [address] Eosinophils/100 WBC (Bld) 4.1 % Normal 0.0-6.[address] [facility] Comment on above: Performed By: #### L [id number] #### [facility] ([facility]) [address] [place] [address] Erythrocyte distribution width (RBC) [Ratio] 15.0 % Normal 11.5-15.[address] [facility] Comment on above: Performed By: #### L [id number] #### [facility] [address] [place] [address] ERYTHROCYTE MEAN CORPUSCULAR HEMOGLOBIN CONCENTRATION (G/DL) BY AUTOMATED 31.9 g/dL Low 32.0-35.[address] [facility] Comment on above: Performed By: #### L [id number] #### [facility] [address] [place] [address] Hematocrit (Bld) [Volume fraction] 37.9 % Normal 36.0-48.[address] [facility] Comment on above: Performed By: #### L [id number] #### [facility] ([facility]) [address] [place] [address] Hemoglobin (Bld) [Mass/Vol] 12.1 g/dL Normal 12.0-15.[address] [facility] Comment on above: Performed By: #### L [id number] #### [facility] [address] [place] [address] Immature granulocytes (Bld) [#/Vol] 0.04 10*3/uL Normal 0.00-0.[address] [facility] Comment on above: Performed By: #### L [id number] #### [facility] [address] [place] [address] Immature granulocytes/100 WBC (Bld) 0.3 % Normal 0.0-1.[address] [facility] Comment on above: Performed By: #### L [id number] #### [facility] ([facility]) [address] [place] [address] Lymphocytes (Bld) [#/Vol] 4.00 10*3/uL Normal 1.20-4.[address] [facility] Comment on above: Performed By: #### L [id number] #### [facility] ([facility]) [address] [place] [address] Lymphocytes/100 WBC (Bld) 32.1 % Normal 20.0-45.[address] [facility] Comment on above: Performed By: #### L [id number] #### [facility] ([facility]) [address] [place] [address] MCH (RBC) [Entitic mass] 28.1 pg Normal 27.0-33.[address] [facility] Comment on above: Performed By: #### L [id number] #### [facility] ([facility]) [address] [place] [address] MCV (RBC) [Entitic vol] 87.9 fL Normal 82.0-98.[address] [facility] Comment on above: Performed By: #### L [id number] #### [facility] [address] [place] [address] Monocytes (Bld) [#/Vol] 0.85 10*3/uL Normal 0.10-1.[address] [facility] Comment on above: Performed By: #### L [id number] #### [facility] ([facility]) [address] [place] [address] Monocytes/100 WBC (Bld) 6.8 % Normal 5.0-12.[address] [facility] Comment on above: Performed By: #### L [id number] #### [facility] ([facility]) [address] [place] [address] Neutrophils (Bld) [#/Vol] 7.02 10*3/uL Normal 1.60-7.[address] [facility] Comment on above: Performed By: #### L [id number] #### [facility] ([facility]) [address] [place] [address] Neutrophils/100 WBC (Bld) 56.4 % Normal 40.0-72.[address] [facility] Comment on above: Performed By: #### L [id number] #### [facility] ([facility]) [address] [place] [address] NRBC (PER 100 WBCS) BY AUTOMATED COUNT 0.0 % Normal [address] [facility] Comment on above: Performed By: #### L [id number] #### [facility] ([facility]) [address] [place] [address] PLATELETS (10*3/UL) IN BLOOD AUTOMATED COUNT 301 10*3/uL Normal 150-[address] [facility] Comment on above: Performed By: #### L [id number] #### [facility] ([facility]) [address] [place] [address] RBC (Bld) [#/Vol] 4.31 10*6/uL Normal 3.80-5.00 [facility] Comment on above: Performed By: #### L [id number] #### [facility] ([facility]) [address] [place] [address] WBC (Bld) [#/Vol] 12.46 10*3/uL High 4.00-10.60 [facility] Comment on above: Performed By: #### L [id number] #### [facility] ([facility]) [address] [place] [address] 30on 07-07-2023 30 The patient is Moderately Stable - Low risk of patient condition declining or worsening The patient's goals for the shift include comfort The clinical goals for the shift include vss Normal [facility] 30 Problem: Cardiovascular - Adult Goal: [...] comfort lev (more content not included)... Normal [facility] BASIC METABOLIC PANELon 02- Anion gap [Moles/Vol] 12 mmol/L Normal 7-20 [facility] Comment on above: Performed By: #### L [id number] #### [facility] ([facility]) [address] [place] [address] Calcium [Mass/Vol] 9.2 mg/dL Normal 8.6-10.[address] [facility] Comment on above: Performed By: #### L [id number] #### [facility] ([facility]) [address] [place] [address] Chloride [Moles/Vol] 97 mmol/L Low 98-107 [facility] Comment on above: Performed By: #### L [id number] #### [facility] ([facility]) [address] [place] [address] CO2 [Moles/Vol] 31 mmol/L Normal 21-31 [facility] Comment on above: Performed By: #### L [id number] #### [facility] ([facility]) [address] [place] [address] Creatinine [Mass/Vol] 1.06 mg/dL Normal 0.60-1.20 [facility] Comment on above: Performed By: #### L [id number] #### [facility] [address] [place] [address] GLOMERULAR FILTRATION RATE ML/MIN/1.73 SQ M.PREDICTED 59.4 mL/min/1.73m*2 Low >60.0 [facility] Comment on above: Result Comment: [facility]???s estimated glomerular filtration rate (eGFR) will [...] individuals. Performed By: #### L [id number] #### [facility] ([facility]) [address] [place] [address] Glucose [Mass/Vol] 119 mg/dL High 70-[address] [facility] Comment on above: Performed By: #### L [id number] #### [facility] ([facility]) [address] [place] [address] Potassium [Moles/Vol] 4.6 mmol/L Normal 3.5-5.1 [facility] Comment on above: Performed By: #### L [id number] #### [facility] ([facility]) [address] [place] [address] Sodium [Moles/Vol] 135 mmol/L Low 136-[address] [facility] Comment on above: Performed By: #### L [id number] #### [facility] ([facility]) [address] [facility] [place] [address] Urea nitrogen [Mass/Vol] 21 mg/dL Normal 7-[address] [facility] Comment on above: Performed By: #### L [id number] #### [facility] ([facility]) [address] [place] [address] UREA NITROGEN/CREATININE (MASS RATIO) IN SER/PLAS 19.[address] [facility] Comment on above: Performed By: #### L [id number] #### [facility] ([facility]) [address] [place] [address] CBC WITH AUTO DIFFERENTIALon 07-07-2023 Basophils (Bld) [#/Vol] 0.05 10*3/uL Normal 0.00-0.[address] [facility] Comment on above: Performed By: #### L [id number] #### [facility] ([facility]) [address] [place] [address] Basophils/100 WBC (Bld) 0.3 % Normal 0.0-1.[address] [facility] Comment on above: Performed By: #### L [id number] #### [facility] ([facility]) [address] [facility] [place] [address] Eosinophils (Bld) [#/Vol] 0.38 10*3/uL Normal 0.00-0.[address] [facility] Comment on above: Performed By: #### L [id number] #### [facility] ([facility]) [address] [place] [address] Eosinophils/100 WBC (Bld) 2.5 % Normal 0.0-6.[address] [facility] Comment on above: Performed By: #### L [id number] #### [facility] ([facility]) [address] [place] [address] Erythrocyte distribution width (RBC) [Ratio] 15.5 % High 11.5-15.[address] [facility] Comment on above: Performed By: #### L [id number] #### [facility] ([facility]) [address] [place] [address] ERYTHROCYTE MEAN CORPUSCULAR HEMOGLOBIN CONCENTRATION (G/DL) BY AUTOMATED 32.0 g/dL Normal 32.0-35.[address] [facility] Comment on above: Performed By: #### L [id number] #### [facility] ([facility]) [address] [place] [address] Hematocrit (Bld) [Volume fraction] 38.8 % Normal 36.0-48.[address] [facility] Comment on above: Performed By: #### L [id number] #### [facility] ([facility]) [address] [place] [address] Hemoglobin (Bld) [Mass/Vol] 12.4 g/dL Normal 12.0-15.[address] [facility] Comment on above: Performed By: #### L [id number] #### [facility] ([facility]) [address] [facility] [address] Immature granulocytes (Bld) [#/Vol] 0.05 10*3/uL Normal 0.00-0.[address] [facility] Comment on above: Performed By: #### L [id number] #### [facility] [address] [place] [address] Immature granulocytes/100 WBC (Bld) 0.3 % Normal 0.0-1.[address] [facility] Comment on above: Performed By: #### L [id number] #### [facility] ([facility]) [address] [place] [address] Lymphocytes (Bld) [#/Vol] 3.99 10*3/uL Normal 1.20-4.[address] [facility] Comment on above: Performed By: #### L [id number] #### [facility] ([facility]) [address] [place] [address] Lymphocytes/100 WBC (Bld) 26.5 % Normal 20.0-45.[address] [facility] Comment on above: Performed By: #### L [id number] #### [facility] ([facility]) [address] [place] [address] MCH (RBC) [Entitic mass] 27.9 pg Normal 27.0-33.[address] [facility] Comment on above: Performed By: #### L [id number] #### [facility] ([facility]) [address] [place] [address] MCV (RBC) [Entitic vol] 87.4 fL Normal 82.0-98.[address] [facility] Comment on above: Performed By: #### L [id number] #### [facility] ([facility]) [address] [place] [address] Monocytes (Bld) [#/Vol] 1.25 10*3/uL High 0.10-1.[address] [facility] Comment on above: Performed By: #### L [id number] #### [facility] ([facility]) [address] [place] [address] Monocytes/100 WBC (Bld) 8.3 % Normal 5.0-12.[address] [facility] Comment on above: Performed By: #### L [id number] #### [facility] ([facility]) [address] [place] [address] Neutrophils (Bld) [#/Vol] 9.31 10*3/uL High 1.60-7.[address] [facility] Comment on above: Performed By: #### L [id number] #### [facility] ([facility]) [address] [place] [address] Neutrophils/100 WBC (Bld) 62.1 % Normal 40.0-72.[address] [facility] Comment on above: Performed By: #### L [id number] #### [facility] ([facility]) [address] [place] [address] NRBC (PER 100 WBCS) BY AUTOMATED COUNT 0.0 % Normal [address] [facility] Comment on above: Performed By: #### L [id number] #### [facility] ([facility]) [address] [place] [address] PLATELETS (10*3/UL) IN BLOOD AUTOMATED COUNT 300 10*3/uL Normal 150-[address] [facility] Comment on above: Performed By: #### L [id number] #### [facility] ([facility]) [address] [place] [address] RBC (Bld) [#/Vol] 4.44 10*6/uL Normal 3.80-5.00 [facility] Comment on above: Performed By: #### L [id number] #### [facility] ([facility]) [address] [place] [address] WBC (Bld) [#/Vol] 15.03 10*3/uL High 4.00-10.60 [facility] Comment on above: Performed By: #### L [id number] #### [facility] ([facility]) [address] [place] [address] MAGNESIUMon 07-07-2023 Magnesium [Mass/Vol] 2.3 mg/dL Normal 1.9-2.7 [facility] Comment on above: Performed By: #### L [id number] #### [facility] [address] [place] [address] 30on 07-06-2023 30 Daily Case Managemen t [...] Consultation Consultation and Management 07/06/[address] [facility] 30 The patient is Moderately Stable [...] and maintained or improved Outcome: Progressing Normal [facility] 30 The patient is Moderately Stable - Low risk of patient condition declining or worsening The patient's goals for the shift include comfort The clinical goals for the shift include VSS Normal [facility] 30 The patient is Moderately Stable - Low risk of patient condition declining or worsening The patient's goals for the shift include comfort The clinical goals for the shift include VSS Normal [facility] APTTon 07-06-2023 ACTIVATED PARTIAL THROMBOPLASTIN TIME IN PPP BY COAGULATION ASSAY 25.3 Seconds Normal 25.0-35.[address] [facility] Comment on above: Result Comment: Clin ical significance of the APTT is questionable in the presence of heparin. Performed By: #### L [id number] #### [facility] ([facility]) [address] [place] [address] B-TYPE NATRIURETIC PEPTIDEon 07-06-2023 Natriuretic peptide B (Bld) [Mass/Vol] 721 pg/mL High 0-[address] [facility] Comment on above: Performed By: #### L [id number] #### [facility] ([facility]) [address] [place] [address] BLOOD CULTUREon 07-06-2023 Bacteria identified Cx Nom (Bld) No growth at 5 days Normal [facility] Comment on above: Performed By: #### L [id number] ####[facility] ([facility])[address] [place] [address] Order Comment: From a different site than #1. Performed By: #### L [id number] #### [facility] ([facility]) [address] [place] [address] CBC WITH AUTO DIFFERENTIALon 07-06-2023 Basophils (Bld) [#/Vol] 0.03 10*3/uL Normal 0.00-0.[address] [facility] Comment on above: Performed By: #### L [id number] ####[facility] ([facility])[address] [place] [address] Basophils/100 WBC (Bld) 0.2 % Normal 0.0-1.[address] [facility] Comment on above: Performed By: #### L [id number] ####[facility] ([facility])[address] [place] [address] Eosinophils (Bld) [#/Vol] 0.11 10*3/uL Normal 0.00-0.[address] [facility] Comment on above: Performed By: #### L [id number] ####[facility] ([facility])[address] [place] [address] Eosinophils/100 WBC (Bld) 0.8 % Normal 0.0-6.[address] [facility] Comment on above: Performed By: #### L [id number] ####[facility] ([facility])[address] [place] [address] Erythrocyte distribution width (RBC) [Ratio] 15.1 % High 11.5-15.[address] [facility] Comment on above: Performed By: #### L [id number] ####[facility] ([facility])[address] [place] [address] ERYTHROCYTE MEAN CORPUSCULAR HEMOGLOBIN CONCENTRATION (G/DL) BY AUTOMATED 32.3 g/dL Normal 32.0-35.[address] [facility] Comment on above: Performed By: #### L [id number] ####[facility] ([facility])[address] [place] [address] Hematocrit (Bld) [Volume fraction] 39.0 % Normal 36.0-48.[address] [facility] Comment on above: Performed By: #### L [id number] ####[facility] ([facility])[address] [place] [address] Hemoglobin (Bld) [Mass/Vol] 12.6 g/dL Normal 12.0-15.[address] [facility] Comment on above: Performed By: #### L [id number] ####[facility] [place] [address] Immature granulocytes (Bld) [#/Vol] 0.04 10*3/uL Normal 0.00-0.[address] [facility] Comment on above: Performed By: #### L [id number] ####[facility] ([facility] [place] [address] Immature granulocytes/100 WBC (Bld) 0.3 % Normal 0.0-1.[address] [facility] Comment on above: Performed By: #### L [id number] ####[facility] ([facility])[address] [place] [address] Lymphocytes (Bld) [#/Vol] 2.75 10*3/uL Normal 1.20-4.[address] [facility] Comment on above: Performed By: #### L [id number] ####[facility] ([facility])[address] [place] [address] Lymphocytes/100 WBC (Bld) 19.1 % Low 20.0-45.[address] [facility] Comment on above: Performed By: #### L [id number] ####[facility] ([facility])[address] [place] [address] MCH (RBC) [Entitic mass] 27.9 pg Normal 27.0-33.[address] [facility] Comment on above: Performed By: #### L [id number] ####[facility] ([facility])[address] [place] [address] MCV (RBC) [Entitic vol] 86.5 fL Normal 82.0-98.0 [facility] Comment on above: Performed By: #### L [id number] ####[facility] (BEAKER)[address] [place] [address] Monocytes (Bld) [#/Vol] 1.31 10*3/uL High 0.10-1.[address] [facility] Comment on above: Performed By: #### L [id number] ####[facility] (BEAKER)[address] [place] [address] Monocytes/100 WBC (Bld) 9.1 % Normal 5.0-12.[address] [facility] Comment on above: Performed By: #### L [id number] ####[facility] (BEAKER)[address] [place] [address] Neutrophils (Bld) [#/Vol] 10.18 10*3/uL High 1.60-7.[address] [facility] Comment on above: Performed By: #### L [id number] ####[facility] (BEAKER)[address] [place] [address] Neutrophils/100 WBC (Bld) 70.5 % Normal 40.0-72.[address] [facility] Comment on above: Performed By: #### L [id number] ####[facility] (BEAKER)[address] [place] [address] NRBC (PER 100 WBCS) BY AUTOMATED COUNT 0.0 % Normal [address] [facility] Comment on above: Performed By: #### L [id number] ####[facility] (BANNER)[address] [place] [address] PLATELETS (10*3/UL) IN BLOOD AUTOMATED COUNT 321 10*3/uL Normal 150-[address] [facility] Comment on above: Performed By: #### L [id number] ####[facility] (BANNER)[address] [place] [address] RBC (Bld) [#/Vol] 4.51 10*6/uL Normal 3.80-5.00 [facility] Comment on above: Performed By: #### L [id number] ####[facility] (BANNER)[address] [place] [address] WBC (Bld) [#/Vol] 14.42 10*3/uL High 4.00-10.60 [facility] Comment on above: Performed By: #### L [id number] ####[facility] (BANNER)[address] [place] [address] CKon 07-06-2023 CREATINE KINASE (U/L) IN SER/PLAS 36.0 U/L Normal 30.0-223.[address] [facility] Comment on above: Performed By: #### L [id number] #### [facility] ([facility]NER) [address] [place] [address] COMPREHENSIVE METABOLIC PANE Pollo 07-06-2023 Albumin [Mass/Vol] 4.6 g/dL Normal 3.5-5.[address] [facility] Comment on above: Performed By: #### L [id number] #### [facility] ([facility]) [address] [place] [address] ALP [Catalytic activity/Vol] 47 U/L Normal 34-[address] [facility] Comment on above: Performed By: #### L [id number] #### [facility] (BEAKER) [address] [place] [address] ALT [Catalytic activity/Vol] 13 U/L Normal 7-[address] [facility] Comment on above: Performed By: #### L [id number] #### [facility] (BEAKER) [address] [place] [address] Anion gap [Moles/Vol] 14 mmol/L Normal 7-20 [facility] Comment on above: Performed By: #### L [id number] #### [facility] (BEAKER) [address] [place] [address] AST [Catalytic activity/Vol] 17 U/L Normal 13-[address] [facility] Comment on above: Performed By: #### L [id number] #### [facility] [address] [place] [address] Bilirubin [Mass/Vol] 0.5 mg/dL Normal 0.3-1.0 [facility] Comment on above: Performed By: #### L [id number] #### [facility] [address] [place] [address] Calcium [Mass/Vol] 8.9 mg/dL Normal 8.6-10.[address] [facility] Comment on above: Performed By: #### L [id number] #### [facility] (BEAKER) [address] [place] [address] Chloride [Moles/Vol] 98 mmol/L Normal 98-107 [facility] Comment on above: Performed By: #### L [id number] #### [facility] (BEAKER) [address] [place] [address] CO2 [Moles/Vol] 28 mmol/L Normal 21-31 [facility] Comment on above: Performed By: #### L [id number] #### [facility] (BEAKER) [address] [place] [address] Creatinine [Mass/Vol] 1.23 mg/dL High 0.60-1.20 [facility] Comment on above: Performed By: #### L [id number] #### [facility] ([facility]ANNER) [address] [place] [address] GLOMERULAR FILTRATION RATE ML/MIN/1.73 SQ M.PREDICTED 49.7 mL/min/1.73m*2 Low >60.0 [facility] Comment on above: Result Comment: [facility]???s estimated glomerular filtration rate (eGFR) will [...] individuals. Performed By: #### L [id number] #### [facility] ([facility]ANNER) [address] [place] [address] Glucose [Mass/Vol] 119 mg/dL High 70-[address] [facility] Comment on above: Performed By: #### L [id number] #### [facility] ([facility]) [address] [place] [address] Potassium [Moles/Vol] 4.6 mmol/L Normal 3.5-5.1 [facility] Comment on above: Performed By: #### L [id number] #### [facility] ([facility]) [address] [place] [address] Protein [Mass/Vol] 6.8 g/dL Normal 6.0-8.[address] [facility] Comment on above: Performed By: #### L [id number] #### [facility] ([facility]NER) [address] [place] [address] Sodium [Moles/Vol] 135 mmol/L Low 136-[address] [facility] Comment on above: Performed By: #### L [id number] #### [facility] (BEAKER) [address] [facility] [place] [address] Urea nitrogen [Mass/Vol] 23 mg/dL Normal 7-[address] [facility] Comment on above: Performed By: #### L [id number] #### [facility] (BEAKER) [address] [facility] [place] [address] UREA NITROGEN/CREATININE (MASS RATIO) IN SER/PLAS 18.[address] [facility] Comment on above: Performed By: #### L [id number] #### [facility] (BEAKER) [address] [facility] [place] [address] CONSULTon 07-06-2023 CONSULT - Attestation signed by [...] of bradycardia. Patient has been transferred to [facility] for consideration of pacemaker placement. As per [...] -- -- 7 (more content not included)... [facility] ED Clinical Summaryon 2023 ED Clinical Summary [address] [address] ED Clinical Summary Person Information Name: VIVIAN VANN Vika/[facility] Age: 63 Years : 1960 Sex: Female Language: Qatari PCP: Екатерина Robert MD Marital Status: Phone: [...] 07/05/2023 22:16:25 07/05/2023 22:16:25 07/05/2023 22:16:25 ADDRESS: [address] [place] [phone] PHYS DOC NOTES: MEDICAL INFORMATION: Prescriptions Given: [...] 3:Tobacco abuse; 4:CHF (congestive heart failure) Normal [facility] ED Patient Education Noteon 07-06-2023 ED Patient Education Note Normal [facility] ED Patient Summaryon 024 ED Patient Summary [address] [address] Patient Discharge Instructions Person Information Name: VIVIAN VANN Age: 63 Years Arrival Date: 07/05/2023 15:01:40 Discharge Diagnosis: 1:Atrial fibrillation with slow ventricular response; 2:Elevated troponin; 3:Tobacco abuse; 4:CHF (congestive heart failure) Primary Care Physician: Екатерина Robert MD Provider Information Primary Provider: Arsenio Martin DO Advanced Director Underwriter Sales:None The exam and treatment you received in the Emergency Department were for an urgent problem and are not intended as complete care. It is important that you follow up with a doctor, nurse practitioner, or physician?s surgical supply assistant for ongoing care. If your symptoms [...] opioids can be used to help relieve xtottbjm-vh-dclijj pain and are often prescribed following a [...] be struggling with addiction, tell your health care taker and ask for guidance or call [employer] National Helpline at 9-465-998-HELP. v Source: [place] Department of Health and Human Services/Center for Disease Control & Preve (more content not included)... Normal [facility] ETHANOLon 07-06-2023 ETHANOL (MG/DL) IN SER/PLAS <[address] [facility] Comment on above: Performed By: #### L [id number] #### [facility] (BEAKER) [address] [place] [address] ETHANOL CALCULATED (%) Normal Un [facility] Comment on above: Performed By: #### L [id number] #### [facility] (BEAKER) [address] [place] [address] HEMOGLOBIN A1Con 07-06-2023 Glucose [Mass/Vol] 148 mg/dL Normal [facility] Comment on above: Performed By: #### L [id number] #### [facility] (BEAKER) [address] [place] [address] HbA1c (Bld) [Mass fraction] 6.8 % High 4.0-6.[address] [facility] Comment on above: Performed By: #### L [id number] #### [facility] (BEAKER) [address] [place] [address] LACTIC ACID WITH 4 HOUR REFL EXon 07-06-2023 LACTATE (MMOL/L) IN SER/PLAS 1.8 mmol/L Normal 0.5-2.[address] [facility] Comment on above: Performed By: #### L [id number] #### [facility] (BEAKER) [address] [place] [address] LIPID PANELon 07-06-2023 CHOL/HDL 3.0 mg/dL Normal [facility] Comment on above: Performed By: #### L [id number] #### [facility] (BEAKER) [address] [place] [address] Cholesterol [Mass/Vol] 143 mg/dL Normal 120-200 Un [facility] Comment on above: Performed By: #### L [id number] #### [facility] (BEAKER) [address] [place] [address] Magnesium [Mass/Vol] 159 mg/dL High 40-149 [facility] Comment on above: Result Comment: TRIG LYCERIDE REFERENCE RANGE: 20 YEARS AND OLDER CARDIOVASCULAR RISK LESS THAN 150 mg/dL LOW RISK 150 TO 199 mg/dL BORDERLINE RISK 200 mg/dL AND GREATER HIGH RISK Performed By: #### L [id number] #### [facility] ([facility]ANNER) [address] [place] [address] Magnesium [Mass/Vol] 63 mg/dL Normal 0-160 [facility] Comment on above: Performed By: #### L [id number] #### [facility] ([facility]NER) [address] [place] [address] Magnesium [Mass/Vol] 48 mg/dL Normal 23-92 [facility] Comment on above: Performed By: #### L [id number] #### [facility] ([facility]NER) [address] [place] [address] NON HDL CHOL. (LDL+VLDL) [address] [facility] Comment on above: Performed By: #### L [id number] #### [facility] ([facility]NER) [address] [place] [address] TOTAL VLDL-C 32 mg/dL Normal 0-40 [facility] Comment on above: Performed By: #### L [id number] #### [facility] ([facility]) [address] [place] [address] MAGNESIUMon 07-06-2023 Magnesium [Mass/Vol] 2.2 mg/dL Normal 1.9-2.7 [facility] Comment on above: Performed By: #### L [id number] #### [facility] ([facility]) [address] [place] [address] PHOSPHORUSon 07-06-2023 Magnesium [Mass/Vol] 5.2 mg/dL High 2.5-5.0 [facility] Comment on above: Performed By: #### L [id number] #### [facility] ([facility]NER) [address] [place] [address] PROTIME-INRon 07-06-2023 INR IN PPP BY COAGULATION ASSAY 1.00 Normal 0.90-1.[address] [facility] Comment on above: Result Comment: [facility] WARFARIN THERAPY CONDITION [...] 1995;108:231S-246S. Performed By: #### L [id number] #### [facility] [employer]NER) [address] [place] [address] PROTHROMBIN TIME (PT) IN PPP BY COAGULATION ASSAY 13.2 Seconds Normal 12.3-14.[address] [facility] Comment on above: Performed By: #### L [id number] #### [facility] [email or web address]) [address] [place] [address] TOXICOLOGY PANEL URINEon AMPHETAMINE+METHAMPHET AMINE SCREEN (PRESENCE) IN URINE Negative Normal Negative [facility] Comment on above: Performed By: #### L [id number] #### [facility] [email or web address]) [address] [place] [address] BARBITURATES PRESENCE IN URINE BY SCREEN METHOD Negative Normal Negative [facility] Comment on above: Performed By: #### L [id number] #### [facility] [email or web address]) [address] [place] [address] Benzodiazepines Ql (U) Positive Abnormal Negative Un [facility] Comment on above: Performed By: #### L [id number] #### [facility] ([facility]ANNER) [address] [place] [address] CANNABINOID (PRESENCE) IN URINE BY SCREEN METHOD Positive Abnormal Negative [facility] Comment on above: Performed By: #### L [id number] #### [facility] ([facility]ANNER) [address] [place] [address] Cocaine Ql (U) Negative Normal Negative [facility] Comment on above: Performed By: #### L [id number] #### [facility] ([facility]ANNER) [address] [place] [address] METHADONE (PRESENCE) IN URINE BY SCREEN METHOD Negative Normal Negative [facility] Comment on above: Performed By: #### L [id number] #### [facility] (BANNER) [address] [place] [address] OPIATES (PRESENCE) IN URINE BY SCREEN METHOD Negative Normal Negative [facility] Comment on above: Performed By: #### L [id number] #### [facility] (BANNER) [address] [place] [address] PHENCYCLIDINE PRESENCE IN URINE BY SCREEN METHOD Negative Normal Negative [facility] Comment on above: Performed By: #### L [id number] #### [facility] (BANNER) [address] [place] [address] Propoxyphene Screen Ql (U) Negative Normal Negative [facility] Comment on above: Performed By: #### L [id number] #### [facility] (BANNER) [address] [facility] [place] [address] TRICYCLIC ANTIDEPRESSANTS (PRESENCE) IN URINE Positive Abnormal Negative [facility] Comment on above: Performed By: #### L [id number] #### [facility] ([facility]ANNER) [address] [place] [address] TROPONIN Ion 07-06-2023 Troponin I.cardiac [Mass/Vol] 0.12 ng/mL Critically high 0.00-0.[address] [facility] Comment on above: Result Comment: M-NH EVIOUS CRITICAL RESULT Previous result verified on 07/06/2023 1236 on specimen/case [id number] called with component Troponin I for procedure Troponin I with value 0.11 ng/mL. Performed By: #### L [id number] #### [facility] ([facility]) [address] [place] [address] Troponin I.cardiac [Mass/Vol] 0.11 ng/mL Critically high 0.00-0.[address] [facility] Comment on above: Result Comment: M-NH EVIOUS CRITICAL RESULT Previous result verified on 07/06/2023 0444 on specimen/case [id number] called with component Troponin I for procedure Troponin I with value 0.12 ng/mL. Performed By: #### L [id number] #### [facility] ([facility]) [address] [place] [address] Troponin I.cardiac [Mass/Vol] 0.12 ng/mL Critically high 0.00-0.[address] [facility] Comment on above: Result Comment: M-CR ITICAL RESULT(S) REVIEWED, CALLED TO AND READ BACK BY PRIYANKA LEOS RN AT 0442 M-TROPONIN INITIAL CRITICAL HIGH; RESPUN AND RETESTED Performed By: #### L [id number] #### [facility] (BANNER) [address] [place] [address] TSH3 REFLEX TO FT4on 024 THYROTROPIN (MIU/L) IN SER/PLAS BY DETECTION LIMIT <= 0.05 MIU/L 4.25 mIU/L Normal 0.34-5.60 [facility] Comment on above: Performed By: #### L [id number] #### [facility] ([facility]) [address] [place] [address] Transfer Documentson 024 Transfer Documents [id number] 1.00TIFF Normal [facility] URINALYSIS WITH REFLEX CULTU REon 07-06-2023 BILIRUBIN, TOTAL PRESENCE IN URINE Negative Normal Negative [facility] Comment on above: Order Comment: Micro scopics not performed on urines with negative chemical reactions unless requested on original order. Performed By: #### L [id number] #### [facility] (BEAKER) [address] [place] [address] Clarity (U) Clear Normal Clear [facility] Comment on above: Order Comment: Micro scopics not performed on urines with negative chemical reactions unless requested on original order. Performed By: #### L [id number] #### [facility] ([facility]AN[facility]) [address] [place] [address] Color (U) Yellow Normal Yellow [facility] Comment on above: Order Comment: Micro scopics not performed on urines with negative chemical reactions unless requested on original order. Performed By: #### L [id number] #### [facility] ([facility]ANNER) [address] [place] [address] Glucose (U) [Mass/Vol] mg/dL Abnormal Negative [facility] Comment on above: Order Comment: Micro scopics not performed on urines with negative chemical reactions unless requested on original order. Performed By: #### L [id number] #### [facility] ([facility]ANNER) [address] [place] [address] HEMOGLOBIN PRESENCE IN URINE Negative Normal Negative [facility] Comment on above: Order Comment: Micro scopics not performed on urines with negative chemical reactions unless requested on original order. Performed By: #### L [id number] #### [facility] (BEAKER) [address] [place] [address] Ketones Ql (U) Negative Normal Negative [facility] Comment on above: Order Comment: Micro scopics not performed on urines with negative chemical reactions unless requested on original order. Performed By: #### L [id number] #### [facility] [address] [place] [address] LEUKOCYTE ESTERASE PRESENCE IN URINE BY TEST STRIP Negative Normal Negative [facility] Comment on above: Order Comment: Micro scopics not performed on urines with negative chemical reactions unless requested on original order. Performed By: #### L [id number] #### [facility] ([facility]) [address] [place] [address] NITRITE PRESENCE IN URINE Negative Normal Negative [facility] Comment on above: Order Comment: Micro scopics not performed on urines with negative chemical reactions unless requested on original order. Performed By: #### L [id number] #### [facility] ([facility]) [address] [place] [address] pH (U) 6.0 [pH] Normal 5.0-8.[address] [facility] Comment on above: Order Comment: Micro scopics not performed on urines with negative chemical reactions unless requested on original order. Performed By: #### L [id number] #### [facility] ([facility]NER) [address] [place] [address] Protein (U) [Mass/Vol] Negative Normal [facility] Comment on above: Order Comment: Micro scopics not performed on urines with negative chemical reactions unless requested on original order. Performed By: #### L [id number] #### [facility] ([facility]ANNER) [address] [place] [address] Specific gravity (U) [Rel density] 1.013 Low 1.015-1.[address] [facility] Comment on above: Order Comment: Micro scopics not performed on urines with negative chemical reactions unless requested on original order. Performed By: #### L [id number] #### [facility] ([facility]) [address] [place] [address] BILIRUBIN, TOTAL PRESENCE IN URINE Negative Normal Negative [facility] Comment on above: Order Comment: Micro scopics not performed on urines with negative chemical reactions unless requested on original order. Performed By: #### L [id number] #### [facility] ([facility]ANNER) [address] [place] [address] Clarity (U) Clear Normal Clear [facility] Comment on above: Order Comment: Micro scopics not performed on urines with negative chemical reactions unless requested on original order. Performed By: #### L [id number] #### [facility] (BANNER) [address] [place] [address] Color (U) Yellow Normal Yellow [facility] Comment on above: Order Comment: Micro scopics not performed on urines with negative chemical reactions unless requested on original order. Performed By: #### L [id number] #### [facility] ([facility]) [address] [place] [address] Glucose (U) [Mass/Vol] mg/dL Abnormal Negative [facility] Comment on above: Order Comment: Micro scopics not performed on urines with negative chemical reactions unless requested on original order. Performed By: #### L [id number] #### [facility] ([facility]NER) [address] [place] [address] HEMOGLOBIN PRESENCE IN URINE Negative Normal Negative [facility] Comment on above: Order Comment: Micro scopics not performed on urines with negative chemical reactions unless requested on original order. Performed By: #### L [id number] #### [facility] ([facility]NER) [address] [place] [address] Ketones Ql (U) Negative Normal Negative [facility] Comment on above: Order Comment: Micro scopics not performed on urines with negative chemical reactions unless requested on original order. Performed By: #### L [id number] #### [facility] ([facility]ANNER) [address] [place] [address] LEUKOCYTE ESTERASE PRESENCE IN URINE BY TEST STRIP Negative Normal Negative [facility] Comment on above: Order Comment: Micro scopics not performed on urines with negative chemical reactions unless requested on original order. Performed By: #### L [id number] #### [facility] ([facility]NER) [address] [place] [address] NITRITE PRESENCE IN URINE Negative Normal Negative [facility] Comment on above: Order Comment: Micro scopics not performed on urines with negative chemical reactions unless requested on original order. Performed By: #### L [id number] #### [facility] ([facility]) [address] [place] [address] pH (U) 6.0 [pH] Normal 5.0-8.[address] [facility] Comment on above: Order Comment: Micro scopics not performed on urines with negative chemical reactions unless requested on original order. Performed By: #### L [id number] #### [facility] (BEAKER) [address] [place] [address] Protein (U) [Mass/Vol] Negative Normal Negative [facility] Comment on above: Order Comment: Micro scopics not performed on urines with negative chemical reactions unless requested on original order. Performed By: #### L [id number] #### [facility] (BEAKER) [address] [place] [address] Specific gravity (U) [Rel density] 1.017 Normal 1.015-1.[address] [facility] Comment on above: Order Comment: Micro scopics not performed on urines with negative chemical reactions unless requested on original order. Performed By: #### L [id number] #### [facility] ([facility]NER) [address] [place] [address] BMPon 07-05-2023 Anion gap [Moles/Vol] 15 mmol/L Normal 6-16 [facility] Comment on above: Performed By: #### 1 [id number], [id number], [id number], 99848396, 2891937, 19423165, 8712609, 8097741, 7935981, 8481044 ####[facility] [address] [place] [address] BUN/Creat Ratio 15 No Units Normal 10-20 [facility] Comment on above: Performed By: #### 1 [id number], 3120885, 53564850, 87076193, 6650237, 84850451, 9433422, 6827052, 2614988, 2974733 ####[facility] [address] [place] [address] Calcium [Mass/Vol] 10.1 mg/dL Normal 8.9-11.1 [facility] Comment on above: Performed By: #### 1 [id number], 0921778, 07849972, 80320848, 6784373, 65819622, 6869032, 1032894, 9199093, 7985082 ####[facility] [address] [place] [address] Chloride [Moles/Vol] 96 mmol/L Low 101-111 [facility] Comment on above: Performed By: #### 1 [id number], 9928899, 59289137, 70481644, 6027137, 59461405, 5841610, 0299341, 8913004, 0238411 ####[facility] [address] [place] [address] CO2 [Moles/Vol] 32 mmol/L High 21-31 [facility] Comment on above: Performed By: #### 1 9291458, 9206895, 02170151, 31002280, 9375918, 40588860, 6164465, 4373501, 9682877, 8335905 ####[facility] [address] [place] [address] Creatinine [Mass/Vol] 1.5 mg/dL High 0.5-1.3 [facility] Comment on above: Performed By: #### 1 5744594, 7148045, 94499074, 89082841, 1728689, 64850253, 4546020, 8832758, 2726196, 9178146 ####[facility] [address] [place] [address] Glucose [Mass/Vol] 147 mg/dL Normal 55-199 [facility] Comment on above: Performed By: #### 1 6905598, 3284421, 38982123, 01994853, 2658627, 68158606, 9900613, 0988093, 6042398, 4691530 ####[facility] [address] [place] [address] Potassium [Moles/Vol] 5.1 mmol/L Normal 3.5-5.3 [facility] Comment on above: Performed By: #### 1 4860474, 9841627, 76518757, 35595685, 1176465, 55328597, 3789240, 6662463, 5967302, 3925504 ####[facility] [address] [place] [address] Sodium [Moles/Vol] 138 mmol/L Normal 135-145 [facility] Comment on above: Performed By: #### 1 3016280, 7169287, 22034426, 26262648, 6287805, 56965695, 4883064, 5220351, 3280157, 9704268 ####[facility] [address] [place] [address] Urea nitrogen [Mass/Vol] 22 mg/dL High 5-21 [facility] Comment on above: Performed By: #### 1 9377038, 1753798, 21936466, 28522223, 5330536, 34233560, 9874500, 1929283, 8079877, 8321745 ####[address] [address] BNPon 07-05-2023 Natriuretic peptide B (Bld) [Mass/Vol] 508 pg/mL High 5-80 [facility] Comment on above: Performed By: #### 1 8696633, 8019358, 62586542, 56116155, 1037424, 98634929, 2085535, 2277569, 3892836, 7662014 ####[address] [place] [address] CBC w/ Auto Diffon 4 Basophil Absolute 0.1 E9/L Normal 0.0-0.2 [facility] Comment on above: Performed By: #### 1 0147162, 4108774, 66617168, 16689254, 0673457, 22023524, 2360819, 1108444, 8986878, 8806158 ####[address] [place] [address] Basophils/100 WBC (Bld) 0.7 % Normal 0.0-2.0 [facility] Comment on above: Performed By: #### 1 3042105, 3346504, 97943685, 74553595, 6445125, 80398258, 8486388, 4104886, 0981159, 2323317 ####[address] [place] [address] Eos Absolute 0.4 E9/L Normal 0.0-0.5 [facility] Comment on above: Performed By: #### 1 3602192, 7711833, 80052550, 23529810, 8340577, 70083751, 0245188, 3445089, 4234570, 4322318 ####[address] Eosinophils/100 WBC (Bld) 3.7 % Normal 0.0-8.0 [facility] Comment on above: Performed By: #### 1 8083397, 6969054, 73370892, 39473432, 0849747, 08259749, 7498972, 8001197, 3488669, 6650125 ####[address] Erythrocyte distribution width (RBC) [Ratio] 16.8 % High 10.9-14.2 [facility] Comment on above: Performed By: #### 1 9315244, 7630650, 06457495, 21805301, 7920945, 59062750, 5685846, 0571515, 8790692, 9622636 ####[address] Hematocrit (Bld) [Volume fraction] 46.0 % Normal 34.0-46.0 [facility] Comment on above: Performed By: #### 1 9380153, 5606699, 42056444, 17603609, 0194947, 49321239, 1405212, 3781984, 4624393, 4512843 ####[address] [address] Hemoglobin (Bld) [Mass/Vol] 15.1 g/dL Normal 12.0-16.0 [facility] Comment on above: Performed By: #### 1 4959597, 2371949, 86215733, 91378810, 2433046, 91873188, 1055266, 8531993, 9177792, 6731070 ####[address] [place] [address] Lymph Absolute 3.6 E9/L Normal 1.0-4.0 [facility] Comment on above: Performed By: #### 1 2249873, 5185616, 94284832, 53153620, 2112337, 17514196, 9949049, 8683083, 1214545, 1151942 ####[address] [address] Lymphocytes/100 WBC (Bld) 30.9 % Normal 14.0-50.0 [facility] Comment on above: Performed By: #### 1 9576146, 2111638, 59582474, 06836520, 1401011, 15984326, 1316689, 7960292, 5816084, 9262079 ####[address] [address] MCH (RBC) [Entitic mass] 27.6 pg Normal 27.0-34.0 [facility] Comment on above: Performed By: #### 1 5340081, 1721463, 02547071, 52457944, 9723767, 99793349, 0439461, 7473189, 4394969, 9468169 ####[address] [address] MCHC (RBC) [Mass/Vol] 32.8 g/dL Normal 31.4-36.0 [facility] Comment on above: Performed By: #### 1 1708831, 5165023, 63623340, 61694777, 9449224, 58362135, 5910154, 6490020, 2134612, 4228447 ####[address] [address] MCV (RBC) [Entitic vol] 84.3 fL Normal 80.0-100.0 [facility] Comment on above: Performed By: #### 1 7167645, 7788628, 65141606, 04504758, 1026290, 41193802, 3895558, 6386898, 0121128, 3538888 ####[address] [place] [address] Sublette Absolute 0.9 E9/L Normal 0.2-1.0 [facility] Comment on above: Performed By: #### 1 1281569, 3951429, 01837948, 42107699, 0510811, 75723154, 6000678, 5968456, 2435878, 7904790 ####[address] [place] [address] Monocytes/100 WBC (Bld) 8.1 % Normal 4.0-14.0 [facility] Comment on above: Performed By: #### 1 8639785, 3905785, 45638529, 65751772, 5022046, 12217647, 4668044, 0697259, 1204155, 8214274 ####[address] [address] Neutro Absolute 6.6 E9/L Normal 2.0-7.5 [facility] Comment on above: Performed By: #### 1 7542155, 2285723, 88495128, 09803952, 2863110, 37027483, 2188888, 4526241, 8375282, 3750608 ####[address] [address] Neutro Auto 56.6 % Normal 36.0-75.0 [facility] Comment on above: Performed By: #### 1 2160763, 8249701, 61142593, 07068047, 8284968, 41852409, 6319128, 9296723, 7380786, 0289387 ####[facility] [address] [place] [address] Platelet 431.0 E9/L Normal 150.0-500.0 [facility] Comment on above: Performed By: #### 1 2421844, 6234870, 58564435, 24416001, 4677269, 61189083, 6024373, 8656924, 4750301, 4974238 ####[facility] [address] [place] [address] Platelet mean volume (Bld) [Entitic vol] 8.5 fL Normal 6.4-10.8 [facility] Comment on above: Performed By: #### 1 3199478, 2474994, 34984772, 29706776, 1310663, 70444712, 6613190, 0692445, 6272846, 5508859 ####[facility] [address] [place] [address] RBC 5.5 E12/L Normal 4.3-5.9 [facility] Comment on above: Performed By: #### 1 6300138, 6246319, 61736858, 93594976, 3230734, 22075032, 8055524, 5999420, 7793430, 6132838 ####[facility] [address] [place] [address] WBC 11.6 E9/L High 4.0-11.0 [facility] Comment on above: Performed By: #### 1 4601271, 8404684, 17708235, 65593047, 4992703, 16054623, 6393998, 7408362, 8410204, 6983372 ####[address] [place] [address] CHEMISTRYOrdered By: SYSTEM SYSTEM on 07-05-2023 Troponin 51.10 pg/mL Invalid Interpretation Code 10.10 - 27.10 pg/mL [facility] Comment on above: Result Comment: Crit ical Result I_TnIHS:51.1 Called to and read back by: DR. JUAN MAS at: 07/05/2023 21:51:38 by:[id number] Critical Result Verified by Previous Result Interpretive Data: T he 95% CI (Confidence Interval) PPV (Positive Predictive Value) for myocardial infarction in females is 38 pg/mL, in males 51 pg/mL. The results should be used in conjunction with clinical conditions of myocardial infarction. (Access High Sensitivity Troponin I Instructions For Use, [employer], December 2017) Troponin 51.70 pg/mL Invalid Interpretation Code 10.10 - 27.10 pg/mL [facility] Chem S Comment on above: Interpretive Data: T nica 95% CI (Confidence Interval) PPV (Positive Predictive Value) for myocardial infarction in females is 38 pg/mL, in males 51 pg/mL. The results should be used in conjunction with clinical conditions of myocardial infarction. (Access High Sensitivity Troponin I Instructions For Use, [employer], December 2017) Result Comment: Crit ical Result [...] back by: JOHNNA PERKINS at: 07/05/2023 16:37:35 by:[id number] Interpretive Data: T he 95% CI (Confidence [...] 508 pg/mL High 5 - 80 pg/mL [facility] COAGULATIONOrdered By: Richar Kumar on 07-05-2023 aPTT Coag (PPP) [Time] 27.2 s Normal 25.1 - 36.5 second(s) [facility] Auto Coag Comment on above: Interpretive Data: P gurdeep 15 days - 4 weeks 1 - [...] the same coagulation reagent and instrumentation as [facility]. Currently there are no coagulation studies available worldwide for children to 14 days, and no normal ranges. Heparin therapeutic range (represented by Anti-Factor Xa activity of 0.2 - 0.4 U/mL) corresponds to PTT of 56.6 - 109.0 sec. INR Coag (PPP) [Relative time] 1.01 {INR} Invalid Interpretation Code [facility] Auto Coag Comment on above: Interpretive Data: I NR results are specifically intended to assess patients stabilized on long-term Anticoagulation therapy suggested INR s Less Intensive Anticoagulation 2.0 3.0 Conventional Range 3.0 4.5 PT Coag (PPP) [Time] 11.2 s Normal 9.4 - 1 2.5 second(s) [facility] Auto Coag Comment on above: Interpretive Data: 1 5 days - 4 weeks 1 - 5 months 6 -11 months 1-5 years 6-10 years 11 -17 years Mean: 11.2 (9.5-12.6) Mean: 11.0 (9.7-12.8) Mean: 11.0 (9.8-13.0) Mean: 11.3 (9.9-13.4) Mean: 11.7 (10.0-14.6) Mean: 11.8 (10.0 - 14.1) Pediatric Reference ranges were obtained from a study by don Keyes prepared from 1437 samples obtained at 7 different centers using the same coagulation reagent and instrumentation as [facility]. Currently there are no coagulation studies available worldwide for children to 14 days, and no normal ranges. Consent for Treatment 06-15 Consent for Treatment [id number]#1 .00TIFF Normal [facility] Digoxinon 07-05-2023 Digoxin Lvl <0.2 Low 0.5-1.9 [facility] Comment on above: Performed By: #### 1 0242690, 3673395, 22204137, 20168770, 8227461, 65299191, 1435625, 6667588, 2373411, 6853463 ####[facility] [address] [place] [address] ED Note-Physicianon 07-05-19 24 ED Note-Physician Basic Information Time Seen: Cher [...] patient states she was just released from [facility] 36 hours ago. She states she was [...] acute int (more content not included)... Normal [facility] Comment on above: Result Comment: [...] Normal 80.0 - 100.0 fL Remisol Heme [place] Absolute 0.9 E9/L Normal 0.2 - 1.0 [...] 07-05-2023 Albumin [Mass/Vol] 4.3 g/dL Normal 3.3-5.0 [facility] Comment on above: Performed By: #### 1 2048423, 4554469, 42213912, 91867110, 9778446, 03088455, 0012840, 9669060, 8385266, 6035747 ####[facility] [address] [place] [address] Albumin/Globulin [Mass ratio] 1.4 {ratio} Normal 1.1-2.2 [facility] Comment on above: Performed By: #### 1 8154629, 9422900, 18716990, 54153069, 2464851, 97872672, 9677522, 7372362, 1865650, 4289956 ####[facility] [address] [place] [address] Alk Phos 77 Int._Unit/L Normal 21-98 [facility] Comment on above: Performed By: #### 1 8087514, 6814991, 07581166, 29583966, 9348514, 12415260, 9228562, 4140101, 2834050, 6898365 ####[address] [place] [address] ALT 20 Int._Unit/L Normal 6-46 [facility] Comment on above: Performed By: #### 1 8956758, 0247848, 76034939, 94686121, 1590372, 05197004, 7786858, 1816235, 7204254, 6137973 ####[facility] [address] [place] [address] AST 23 Int._Unit/L Normal 5-43 [facility] Comment on above: Performed By: #### 1 2608847, 2485982, 21419589, 67913255, 6213550, 89911524, 6692141, 1241441, 3241576, 9951162 ####[facility] [address] [place] [address] Bili Direct 0.1 mg/dL Normal 0.0-0.4 [facility] Comment on above: Performed By: #### 1 8629975, 3811687, 93567597, 73557845, 6134238, 10467880, 4511759, 3526063, 6015956, 3003548 ####[facility] [address] [place] [address] Bili Indirect 0.5 mg/dL Normal 0.1-0.9 [facility] Comment on above: Performed By: #### 1 4622024, 0882862, 16444959, 74457271, 5708726, 92638749, 7662959, 8262327, 3952677, 1113394 ####[facility] [address] [place] [address] Bili Total 0.6 mg/dL Normal 0.0-1.1 [facility] Comment on above: Performed By: #### 1 2637318, 2909264, 38526553, 50355956, 3483836, 08071658, 7873896, 5869676, 8030147, 7319054 ####[facility] [address] [place] [address] Globulin (S) [Mass/Vol] 3.0 g/dL Normal 1.4-4.0 [facility] Comment on above: Performed By: #### 1 5992970, 7849194, 97348247, 53358594, 1765483, 55088831, 3151950, 7267835, 8483082, 6759032 ####[facility] [address] [place] [address] Protein [Mass/Vol] 7.3 g/dL Normal 6.0-7.8 [facility] Comment on above: Performed By: #### 1 9102784, 5303016, 43788090, 49116385, 7818472, 38712246, 9117732, 4558886, 9680309, 4630879 ####[facility] [address] [place] [address] Lipase Levelon 07-05-2023 Lipase Lvl 22 unit/L Normal 13-58 [facility] Comment on above: Performed By: #### 1 5363972, 3351395, 70862565, 50347748, 0423774, 64337136, 9002461, 6870405, 8980516, 8738685 ####[facility] [address] [place] [address] Magnesiumon 07-05-2023 Magnesium [Mass/Vol] 2.3 mg/dL Normal 1.3-2.4 [facility] Comment on above: Performed By: #### 1 2762490, 8190053, 74818780, 85435903, 1309071, 39741247, 3721451, 1260104, 8819784, 5679901 ####[facility] [address] [place] [address] Monitor Recordon 07-05-2023 Monitor Record [id number]# 1.00TIFF Normal [facility] Monitor Record [id number]# 1.00TIFF Normal [facility] Monitor Record [id number]# 1.00TIFF Normal [facility] PT & PTTon 07-05-2023 aPTT Coag (PPP) [Time] 27.2 second(s) Normal 25.1-36.5 [facility] Comment on above: Result Comment: [...] the same coagulation reagent and instrumentation as [facility]. Currently there are no coagulation studies available worldwide for children to 14 days, and no normal ranges. Heparin therapeutic range (represented by Anti-Factor Xa activity of 0.2 - 0.4 U/mL) corresponds to PTT of 56.6 - 109.0 sec. Performed By: #### 1 2340913, 5697413, 79499041, 30930343, 0783002, 29064581, 4424361, 4204525, 0456506, 8627262 ####[facility] [address] [place] [address] INR Coag (PPP) [Relative time] 1.01 {INR} Invalid Interpretation Code [facility] Comment on above: Result Comment: INR results are specifically intended to assess patients stabilized on long-term Anticoagulation therapy suggested INR?s ?Less Intensive Anticoagulation? 2.0 ? 3.0 Conventional Range 3.0 ? 4.5 Performed By: #### 1 9239824, 6510093, 42041747, 76679091, 8014194, 79336676, 0913622, 7604688, 6681703, 3490876 ####[facility] [address] [place] [address] PT Coag (PPP) [Time] 11.2 second(s) Normal 9.4-12.5 [facility] Comment on above: Result Comment: [...] the same coagulation reagent and instrumentation as [facility]. Currently there are no coagulation studies available worldwide for children to 14 days, and no normal ranges. Performed By: #### 1 2903760, 8494951, 13909642, 53315910, 3896612, 06771447, 8473808, 3174804, 0391609, 8049158 ####[facility] [address] [place] [address] Pre-Arrival Noteon Pre-Arrival Note Pre-Arrival Summary Name: , [facility] Current Date: 07/05/2023 15:02:00 EST Gender: Female Date of : Age: 63 Pre-Arrival Type: EMS ETA: 07/05/2023 15:21:00 EST Primary Care Physician: Presenting Problem: HR 40s, CP, SOB, dizziness, abd. pain, nausea Pre-Arrival User: Oxana Pace RN Referring Source: Location: [place] Completion Date/Time: 07/05/2023 14:51:00 [facility] Emergency Department Pre-Hospital Report Form Vital Signs: Pre-Hospital Report: Treatment in Route: Response to Treatment: Misc. Issues: Normal [facility] Troponin 0 Hr.on 07-05-2023 Troponin 49.20 pg/mL Abnormal 10.10-27.10 [facility] Comment on above: Result Comment: Steven gonzalez Result Verified by Repeat Analysis Critical Result I_TnIHS:49.2 Called to and read back by: JOHNNA PERKINS at: 07/05/2023 16:37:35 by:[id number] The 95% CI (Confidence Interval) PPV (Positive Predictive Value) for myocardial infarction in females is 38 pg/mL, in males 51 pg/mL. The results should be used in conjunction with clinical conditions of myocardial infarction. (Access High Sensitivity Troponin I Instructions For Use, [employer] [place], December 2017) Performed By: #### 1 6305493, 5050373, 34656074, 75826892, 7880162, 68773418, 5317254, 9223623, 3759819, 5874361 ####[facility] [address] [place] [address] Troponin 3 Hr.on 07-05-2023 Troponin 51.70 pg/mL Abnormal 10.10-27.10 [facility] Comment on above: Result Comment: The 95% CI (Confidence Interval) PPV (Positive Predictive Value) for myocardial infarction in females is 38 pg/mL, in males 51 pg/mL. The results should be used in conjunction with clinical conditions of myocardial infarction. (Access High Sensitivity Troponin I Instructions For Use, [employer], December 2017) Critical Result Verified by Previous Result Results Called To Johnna Perkins (ER) By STANFORD And Read Back For Confirmation On 07/05/2023 19:18:03 EST. Performed By: #### 1 [id number] ####[facility] [address] [place] [address] Troponin 6 Hr.on 07-05-2023 Troponin 51.10 pg/mL Abnormal 10.10-27.10 [facility] Comment on above: Result Comment: Crit ical Result I_TnIHS:51.1 Called to and read back by: DR. JUAN MAS at: 07/05/2023 21:51:38 by:[id number] Critical Result Verified by Previous Result The 95% CI (Confidence Interval) PPV (Positive Predictive Value) for myocardial infarction in females is 38 pg/mL, in males 51 pg/mL. The results should be used in conjunction with clinical conditions of myocardial infarction. ([employer] High Sensitivity Troponin I Instructions For Use, [employer], December 2017) Performed By: #### 1 7157625 ####[facility] [address] [place] [address] XR Chest Single Viewon 07-05 XR Chest [...] Narinder Lux DO Transcribed by: SRAVANI Technologist: SRF Technical Comments Radiation Dose: Ka,r in mGy = na DAP = na Normal [facility] eGFRon 07-05-2023 eGFR 39 mL/min/1.73 m2 Low >=59 [facility] Comment on above: Order Comment: Order added by Discern Expert. Performed By: #### 1 2177561, 3898042, 28436679, 78613967, 6375107, 24742963, 8158556, 3400088, 3257141, 6318276 ####[facility] [address] [place] [address] 36on 07-03-2023 36 Unable to reach pt . Phone not in service [facility] 36 Pts phone number not in service. Spoke to pts friend Arvind and requested he have pt call us, he agrees. [facility] Documentationon 07-03-2023 Documentation [id number] Vivian Vann 1960 F Date Provider Department Center 07/03/2023 MARKO BECERRA [facility] No family history on file Reason for Visit and Comments: HF inpatient satisfaction robyn sent. [Other] [facility] 30on 07-02-2023 30 The patient is Moderately [...] and behaviors that affect risk of falls [place] fall precautions as indicated by assessment Educate [...] and prevent overall improvement and discharge Normal [facility] 30 The patient is Moderately Stable [...] and behaviors that affect risk of falls [place] fall precautions as indicated by assessment Educate [...] and prevent overall improvement and discharge Normal [facility] BASIC METABOLIC PANELon 06-14 Anion gap [Moles/Vol] 11 mmol/L Normal 7-20 [facility] Comment on above: Performed By: #### L [id number] #### [facility] (AKER) [address] [place] [address] Calcium [Mass/Vol] 9.0 mg/dL Normal 8.6-10.[address] [facility] Comment on above: Performed By: #### L [id number] #### [facility] (BEAKER) [address] [place] [address] Chloride [Moles/Vol] 91 mmol/L Low 98-107 [facility] Comment on above: Performed By: #### L [id number] #### [facility] (BEAKER) [address] [place] [address] CO2 [Moles/Vol] 37 mmol/L High 21-31 [facility] Comment on above: Performed By: #### L [id number] #### [facility] (BEAKER) [address] [place] [address] Creatinine [Mass/Vol] 0.89 mg/dL Normal 0.60-1.20 [facility] Comment on above: Performed By: #### L [id number] #### [facility] (BEAKER) [address] [place] [address] GLOMERULAR FILTRATION RATE ML/MIN/1.73 SQ M.PREDICTED 73.3 mL/min/1.73m*2 Normal >60.0 [facility] Comment on above: Result Comment: [facility]???s estimated glomerular filtration rate (eGFR) will [...] individuals. Performed By: #### L [id number] #### [facility] ([facility]) [address] [place] [address] Glucose [Mass/Vol] 123 mg/dL High 70-[address] [facility] Comment on above: Performed By: #### L [id number] #### [facility] ([facility]) [address] [place] [address] Potassium [Moles/Vol] 3.7 mmol/L Normal 3.5-5.1 [facility] Comment on above: Performed By: #### L [id number] #### [facility] ([facility]) [address] [place] [address] Sodium [Moles/Vol] 135 mmol/L Low 136-[address] [facility] Comment on above: Performed By: #### L [id number] #### [facility] ([facility]) [address] [place] [address] Urea nitrogen [Mass/Vol] 29 mg/dL High 7-[address] [facility] Comment on above: Performed By: #### L [id number] #### [facility] ([facility]) [address] [place] [address] UREA NITROGEN/CREATININE (MASS RATIO) IN SER/PLAS 32.[address] [facility] Comment on above: Performed By: #### L [id number] #### [facility] ([facility]) [address] [place] [address] CBCon 07-02-2023 Erythrocyte distribution width (RBC) [Ratio] 15.8 % High 11.5-15.[address] [facility] Comment on above: Performed By: #### L [id number] ####[facility] [place] [address] ERYTHROCYTE MEAN CORPUSCULAR HEMOGLOBIN CONCENTRATION (G/DL) BY AUTOMATED 31.8 g/dL Low 32.0-35.[address] [facility] Comment on above: Performed By: #### L [id number] ####[facility] ([facility] [place] [address] Hematocrit (Bld) [Volume fraction] 44.0 % Normal 36.0-48.[address] [facility] Comment on above: Performed By: #### L [id number] ####[facility] [place] [address] Hemoglobin (Bld) [Mass/Vol] 14.0 g/dL Normal 12.0-15.[address] [facility] Comment on above: Performed By: #### L [id number] ####[facility] (BEAKER)[address] [place] [address] MCH (RBC) [Entitic mass] 27.9 pg Normal 27.0-33.[address] [facility] Comment on above: Performed By: #### L [id number] ####[facility] (BEAKER)[address] [place] [address] MCV (RBC) [Entitic vol] 87.8 fL Normal 82.0-98.[address] [facility] Comment on above: Performed By: #### L [id number] ####[facility] (BEAKER)[address] [place] [address] PLATELETS (10*3/UL) IN BLOOD AUTOMATED COUNT 285 10*3/uL Normal 150-[address] [facility] Comment on above: Performed By: #### L [id number] ####[facility] (BEAKER)[address] [place] [address] RBC (Bld) [#/Vol] 5.01 10*6/uL High 3.80-5.00 [facility] Comment on above: Performed By: #### L [id number] ####[facility] [place] [address] WBC (Bld) [#/Vol] 8.89 10*3/uL Normal 4.00-10.60 [facility] Comment on above: Performed By: #### L [id number] ####[facility] (ANDRIY)[address] [place] [address] DSon 07-02-2023 DS Admit Date 06/29/2023 Discharge Date 07/02/2023 Discharge Diagnosis NSTEMI Acute on chronic HFpEF NYHA class 2 CAD DMII noninsulin dependent Chronic pain Anxiety GERD Tobacco abuse Discharge Disposition Home-Health Care [facility] (06) Discharge Medications Your medication list START taking [...] Medications These medications were sent to [facility] - [place], [place] - [address] [facility] [address] [place] [address] [facility] [place] [address], [facility] [address] furosemide 40 mg tablet spironolactone 25 mg tablet Activity Normal activity as tolerated Diet Continue on the same type of diet and foods as you were eating before your admission. Drink plenty of water. Allergies Hay fever and allergy relief and House dust Hospital Course History of Present Illness Vivian Vann is an 63 y.o. female who came from [facility] as direct asmission for NSTEMI. Patient presented 06/28/23 to [place] ED for c/o chest pain and lower back pain. Patient troponin level found to be 557 and EKG showed new ischemia and inverted T-waves, NSTEMI. She was given nitroglycerin and started on heparin drip. Patient is 1 year s/p stent placement at [facility] on plavix and aspirin. Dr. Yoo with cardiology agreed to patient transfer here to [facility] with hospital medicine admitting and cardiology consult [...] Low back pending. Laboratory workup here at [facility] shows CBC unremarkable w/ exception of NCHC [...] General: Abdo (more content not included)... Normal [facility] POCT GLUCOSE METER UNSOLICIT ED RESULTSon 07-02-2023 Glucose [Mass/Vol] 117 mg/dL High 70-[address] [facility] Comment on above: Order Comment: Waive d Testing in the ED is performed under the ED CLIA certificate #[id number]. Result Comment: [email or web address] Performed By: #### L [id number] #### [facility] (BEAKER) [address] [place] [address] Glucose [Mass/Vol] 110 mg/dL High 70-[address] [facility] Comment on above: Order Comment: Waive d Testing in the ED is performed under the ED CLIA certificate #[id number]. Result Comment: [email or web address] Performed By: #### L [id number] ####[facility] (BEAKER)[address] [place] [address] 30on 07-01-2023 30 The patient is Moderately Stable - Low risk of patient condition declining or worsening The patient's goals for the shift include comfort The clinical goals for the shift include stable vs Problem: Pain - Adult Goal: Verbalizes/displays adequate comfort level or baseline comfort level Outcome: Progressing Flowsheets (Taken 07/01/2023 07) Verbalizes/displays adequate comfort level or baseline comfort [...] fall injury Outcome: Progressing Flowsheets (Taken 07/01/2023 0700) Free from fall injury: Assess patient frequently for physical needs Identify cognitive and physical deficits and behaviors that affect risk of falls [place] fall precautions as indicated by assessment Educate [...] and prevent overall improvement and discharge Normal [facility] BASIC METABOLIC PANELon - Anion gap [Moles/Vol] 10 mmol/L Normal 7-20 [facility] Comment on above: Performed By: #### L [id number] #### [facility] (BEAKER) [address] [place] [address] Calcium [Mass/Vol] 8.3 mg/dL Low 8.6-10.[address] [facility] Comment on above: Performed By: #### L [id number] #### [facility] [address] [place] [address] Chloride [Moles/Vol] 98 mmol/L Normal 98-107 [facility] Comment on above: Performed By: #### L [id number] #### [facility] ([facility]) [address] [place] [address] CO2 [Moles/Vol] 35 mmol/L High 21-31 [facility] Comment on above: Performed By: #### L [id number] #### [facility] ([facility]) [address] [place] [address] Creatinine [Mass/Vol] 1.08 mg/dL Normal 0.60-1.20 [facility] Comment on above: Performed By: #### L [id number] #### [facility] ([facility]) [address] [place] [address] GLOMERULAR FILTRATION RATE ML/MIN/1.73 SQ M.PREDICTED 58.1 mL/min/1.73m*2 Low >60.0 [facility] Comment on above: Result Comment: [facility]???s estimated glomerular filtration rate (eGFR) will [...] individuals. Performed By: #### L [id number] #### [facility] ([facility]) [address] [place] [address] Glucose [Mass/Vol] 116 mg/dL High 70-[address] [facility] Comment on above: Performed By: #### L [id number] #### [facility] ([facility]) [address] [place] [address] Potassium [Moles/Vol] 3.7 mmol/L Normal 3.5-5.1 [facility] Comment on above: Performed By: #### L [id number] #### [facility] ([facility]) [address] [place] [address] Sodium [Moles/Vol] 139 mmol/L Normal 136-[address] [facility] Comment on above: Performed By: #### L [id number] #### [facility] ([facility]) [address] [place] [address] Urea nitrogen [Mass/Vol] 27 mg/dL High 7-[address] [facility] Comment on above: Performed By: #### L [id number] #### [facility] ([facility]) [address] [place] [address] UREA NITROGEN/CREATININE (MASS RATIO) IN SER/PLAS 25.[address] [facility] Comment on above: Performed By: #### L [id number] #### [facility] ([facility]) [address] [place] [address] POCT GLUCOSE METER UNSOLICIT ED RESULTSon 07-01-2023 Glucose [Mass/Vol] 132 mg/dL High 70-[address] [facility] Comment on above: Order Comment: Waive d Testing in the ED is performed under the ED CLIA certificate #[id number]. Result Comment: [email or web address] Performed By: #### L [id number] ####[facility] ([facility])[address] [facility] [address] Glucose [Mass/Vol] 106 mg/dL High 70-[address] [facility] Comment on above: Order Comment: Waive d Testing in the ED is performed under the ED CLIA certificate #[id number]. Result Comment: [email or web address] Performed By: #### L [id number] ####[facility] ([facility]NER)[address] [place] [address] Glucose [Mass/Vol] 121 mg/dL High 70-[address] [facility] Comment on above: Order Comment: Waive d Testing in the ED is performed under the ED CLIA certificate #[id number]. Result Comment: [email or web address] Performed By: #### L [id number] ####[facility] ([facility])[address] [place] [address] Glucose [Mass/Vol] 105 mg/dL Normal 70-[address] [facility] Comment on above: Order Comment: Waive d Testing in the ED is performed under the ED CLIA certificate #[id number]. Result Comment: [email or web address] Performed By: #### L [id number] #### [facility] ([facility]) [address] [place] [address] 30on 06-30-2023 30 The patient is Moderately [...] and maintained or improved Outcome: Progressing Normal [facility] ANTI-XA (HEPARIN LEVEL)on HEPARIN UNFRACTIONATED (U/ML) IN PPP BY CHROMOGENIC METHOD <0.10 Invalid Interpretation Code 0.3-0.[address] [facility] Comment on above: Order Comment: Check anti-Xa level every 6 hours while on heparin infusion, or per protocol. Result Comment: Humble roxaban and Apixaban will interfere with the anti Xa assay used to monitor UFH and LMWH. Performed By: #### L [id number] #### [facility] ([facility]) [address] [place] [address] CBCon 06-30-2023 Erythrocyte distribution width (RBC) [Ratio] 15.3 % High 11.5-15.[address] [facility] Comment on above: Performed By: #### L [id number] ####[facility] (BEAKER)[address] [place] [address] ERYTHROCYTE MEAN CORPUSCULAR HEMOGLOBIN CONCENTRATION (G/DL) BY AUTOMATED 32.2 g/dL Normal 32.0-35.[address] [facility] Comment on above: Performed By: #### L [id number] ####[facility] [place] [address] Hematocrit (Bld) [Volume fraction] 35.7 % Low 36.0-48.[address] [facility] Comment on above: Performed By: #### L [id number] ####[facility] (BEAKER)[address] [place] [address] Hemoglobin (Bld) [Mass/Vol] 11.5 g/dL Low 12.0-15.[address] [facility] Comment on above: Performed By: #### L [id number] ####[facility] (BEAKER)[address] [place] [address] MCH (RBC) [Entitic mass] 28.1 pg Normal 27.0-33.[address] [facility] Comment on above: Performed By: #### L [id number] ####[facility] (BEAKER)[address] [place] [address] MCV (RBC) [Entitic vol] 87.3 fL Normal 82.0-98.[address] [facility] Comment on above: Performed By: #### L [id number] ####[facility] (BEAKER)[address] [place] [address] PLATELETS (10*3/UL) IN BLOOD AUTOMATED COUNT 219 10*3/uL Normal 150-[address] [facility] Comment on above: Performed By: #### L [id number] ####[facility] (BEAKER)[address] [place] [address] RBC (Bld) [#/Vol] 4.09 10*6/uL Normal 3.80-5.00 [facility] Comment on above: Performed By: #### L [id number] ####[facility] (ANDRIY)[address] [place] [address] WBC (Bld) [#/Vol] 10.22 10*3/uL Normal 4.00-10.60 [facility] Comment on above: Performed By: #### L [id number] ####[facility] (ANDRIY)[address] [place] [address] CONSULTon 06-30-2023 CONSULT Clinical Nutrition Assessment Name: [...] with questions and contact the dietitian via Pro[employer] chat 8A-4P Sunday-Sunday. Or call the dietitian's office at extension [phone]. For s/holidays, the dietitian's can be reached by paging [phone] from 9A-3P. Unable to be reached via [email or web address] chat on Sunday & .) Normal [facility] HEMOGLOBIN A1Con 06-30-2023 Glucose [Mass/Vol] 143 mg/dL Normal [facility] Comment on above: Performed By: #### L [id number] ####[facility] ([facility])[address] [place] [address] HbA1c (Bld) [Mass fraction] 6.6 % High 4.0-6.[address] [facility] Comment on above: Performed By: #### L [id number] ####[facility] ([facility])[address] [place] [address] LACTIC ACID WITH 4 HOUR REFL EXon 06-30-2023 LACTATE (MMOL/L) IN SER/PLAS 1.9 mmol/L Normal 0.5-2.[address] [facility] Comment on above: Performed By: #### L [id number] #### [facility] ([facility]) [address] [place] [address] POCT GLUCOSE METER UNSOLICIT ED RESULTSon 06-30-2023 Glucose [Mass/Vol] 156 mg/dL High 70-[address] [facility] Comment on above: Order Comment: Waive d Testing in the ED is performed under the ED CLIA certificate #[id number]. Result Comment: [email or web address] Performed By: #### L [id number] ####[facility] ([facility])[address] [place] [address] Glucose [Mass/Vol] 149 mg/dL High 70-[address] [facility] Comment on above: Order Comment: Waive d Testing in the ED is performed under the ED CLIA certificate #[id number]. Result Comment: [email or web address] Performed By: #### L [id number] #### [facility] ([facility]) [address] [place] [address] Glucose [Mass/Vol] 181 mg/dL High 70-[address] [facility] Comment on above: Order Comment: Waive d Testing in the ED is performed under the ED CLIA certificate #[id number]. Result Comment: [email or web address] Performed By: #### L [id number] #### [facility] ([facility]) [address] [place] [address] 30on 06-29-2023 30 The patient is Moderately [...] and maintained or improved Outcome: Progressing Normal [facility] 30 The patient is Moderately Stable - Low risk of patient condition declining or worsening The patient's goals for the shift include no chest pain The clinical goals for the shift include vss Over the shift, the patient did not make progress toward the following goals. Barriers to progression include . Recommendations to address these barriers include . Normal [facility] APTTon 06-29-2023 ACTIVATED PARTIAL THROMBOPLASTIN TIME IN PPP BY COAGULATION ASSAY 67.3 Seconds High 25.0-35.[address] [facility] Comment on above: Result Comment: Clin ical significance of the APTT is questionable in the presence of heparin. Performed By: #### L [id number] #### [facility] ([facility]) [address] [place] [address] B-TYPE NATRIURETIC PEPTIDEon 06-29-2023 Natriuretic peptide B (Bld) [Mass/Vol] 1683 pg/mL High 0-[address] [facility] Comment on above: Performed By: #### L [id number] #### [facility] ([facility]) [address] [place] [address] BASIC METABOLIC PANELon 06-14 Anion gap [Moles/Vol] 14 mmol/L Normal 7-20 [facility] Comment on above: Performed By: #### L [id number] #### [facility] ([facility]) [address] [place] [address] Calcium [Mass/Vol] 8.2 mg/dL Low 8.6-10.[address] [facility] Comment on above: Performed By: #### L [id number] #### [facility] ([facility]) [address] [place] [address] Chloride [Moles/Vol] 102 mmol/L Normal 98-107 [facility] Comment on above: Performed By: #### L [id number] #### [facility] ([facility]) [address] [place] [address] CO2 [Moles/Vol] 25 mmol/L Normal 21-31 [facility] Comment on above: Performed By: #### L [id number] #### [facility] ([facility]) [address] [place] [address] Creatinine [Mass/Vol] 1.04 mg/dL Normal 0.60-1.20 [facility] Comment on above: Performed By: #### L [id number] #### [facility] ([facility]) [address] [place] [address] GLOMERULAR FILTRATION RATE ML/MIN/1.73 SQ M.PREDICTED 60.8 mL/min/1.73m*2 Normal >60.0 [facility] Comment on above: Result Comment: [facility]???s estimated glomerular filtration rate (eGFR) will [...] individuals. Performed By: #### L [id number] #### [facility] ([facility]) [address] [place] [address] Glucose [Mass/Vol] 268 mg/dL High 70-[address] [facility] Comment on above: Performed By: #### L [id number] #### [facility] ([facility]) [address] [place] [address] Potassium [Moles/Vol] 4.1 mmol/L Normal 3.5-5.1 [facility] Comment on above: Performed By: #### L [id number] #### [facility] ([facility]) [address] [place] [address] Sodium [Moles/Vol] 137 mmol/L Normal 136-[address] [facility] Comment on above: Performed By: #### L [id number] #### [facility] ([facility]) [address] [place] [address] Urea nitrogen [Mass/Vol] 14 mg/dL Normal 7-[address] [facility] Comment on above: Performed By: #### L [id number] #### [facility] ([facility]) [address] [place] [address] UREA NITROGEN/CREATININE (MASS RATIO) IN SER/PLAS 13.[address] [facility] Comment on above: Performed By: #### L [id number] #### [facility] ([facility]) [address] [place] [address] CBCon 06-29-2023 Erythrocyte distribution width (RBC) [Ratio] 15.3 % High 11.5-15.[address] [facility] Comment on above: Performed By: #### L [id number] #### [facility] ([facility]) [address] [place] [address] ERYTHROCYTE MEAN CORPUSCULAR HEMOGLOBIN CONCENTRATION (G/DL) BY AUTOMATED 31.8 g/dL Low 32.0-35.[address] [facility] Comment on above: Performed By: #### L [id number] #### [facility] ([facility]) [address] [place] [address] Hematocrit (Bld) [Volume fraction] 39.3 % Normal 36.0-48.[address] [facility] Comment on above: Performed By: #### L [id number] #### [facility] ([facility]) [address] [place] [address] Hemoglobin (Bld) [Mass/Vol] 12.5 g/dL Normal 12.0-15.[address] [facility] Comment on above: Performed By: #### L [id number] #### [facility] ([facility]) [address] [place] [address] MCH (RBC) [Entitic mass] 28.4 pg Normal 27.0-33.[address] [facility] Comment on above: Performed By: #### L [id number] #### [facility] ([facility]) [address] [place] [address] MCV (RBC) [Entitic vol] 89.3 fL Normal 82.0-98.[address] [facility] Comment on above: Performed By: #### L [id number] #### [facility] ([facility]) [address] [place] [address] PLATELETS (10*3/UL) IN BLOOD AUTOMATED COUNT 218 10*3/uL Normal 150-[address] [facility] Comment on above: Performed By: #### L [id number] #### [facility] ([facility]) [address] [place] [address] RBC (Bld) [#/Vol] 4.40 10*6/uL Normal 3.80-5.00 [facility] Comment on above: Performed By: #### L [id number] #### [facility] [address] [place] [address] WBC (Bld) [#/Vol] 9.91 10*3/uL Normal 4.00-10.60 [facility] Comment on above: Performed By: #### L [id number] #### [facility] [address] [place] [address] COMPREHENSIVE METABOLIC PANE Pollo 06-29-2023 Albumin [Mass/Vol] 3.8 g/dL Normal 3.5-5.[address] [facility] Comment on above: Performed By: #### L [id number] ####[facility] ([facility])[address] [place] [address] ALP [Catalytic activity/Vol] 77 U/L Normal 34-[address] [facility] Comment on above: Performed By: #### L [id number] ####[facility] [place] [address] ALT [Catalytic activity/Vol] 23 U/L Normal 7-[address] [facility] Comment on above: Performed By: #### L [id number] ####[facility] ([facility])[address] [place] [address] Anion gap [Moles/Vol] 10 mmol/L Normal 7-20 [facility] Comment on above: Performed By: #### L [id number] ####[facility] [place] [address] AST [Catalytic activity/Vol] 23 U/L Normal 13-[address] [facility] Comment on above: Performed By: #### L [id number] ####[facility] ([facility])[address] [place] [address] Bilirubin [Mass/Vol] 0.4 mg/dL Normal 0.3-1.0 [facility] Comment on above: Performed By: #### L [id number] ####[facility] [place] [address] Calcium [Mass/Vol] 8.6 mg/dL Normal 8.6-10.[address] [facility] Comment on above: Performed By: #### L [id number] ####[facility] [place] [address] Chloride [Moles/Vol] 107 mmol/L Normal 98-107 [facility] Comment on above: Performed By: #### L [id number] ####[facility] ([facility])[address] [place] [address] CO2 [Moles/Vol] 27 mmol/L Normal 21-31 [facility] Comment on above: Performed By: #### L [id number] ####[facility] ([facility])[address] [place] [address] Creatinine [Mass/Vol] 1.01 mg/dL Normal 0.60-1.20 [facility] Comment on above: Performed By: #### L [id number] ####[facility] ([facility])[address] [place] [address] GLOMERULAR FILTRATION RATE ML/MIN/1.73 SQ M.PREDICTED 62.9 mL/min/1.73m*2 Normal >60.0 [facility] Comment on above: Result Comment: [facility]???s estimated glomerular filtration rate (eGFR) will [...] of individuals. Performed By: #### L [id number] ####[facility] ([facility])[address] [place] [address] Glucose [Mass/Vol] 148 mg/dL High 70-[address] [facility] Comment on above: Performed By: #### L [id number] ####[facility] ([facility])[address] [place] [address] Potassium [Moles/Vol] 4.2 mmol/L Normal 3.5-5.1 [facility] Comment on above: Performed By: #### L [id number] ####[facility] ([facility])[address] [place] [address] Protein [Mass/Vol] 6.3 g/dL Normal 6.0-8.[address] [facility] Comment on above: Performed By: #### L [id number] ####[facility] [place] [address] Sodium [Moles/Vol] 140 mmol/L Normal 136-[address] [facility] Comment on above: Performed By: #### L [id number] ####[facility] [place] [address] Urea nitrogen [Mass/Vol] 10 mg/dL Normal 7-[address] [facility] Comment on above: Performed By: #### L [id number] ####[facility] ([facility])[address] [place] [address] UREA NITROGEN/CREATININE (MASS RATIO) IN SER/PLAS 9.[address] [facility] Comment on above: Performed By: #### L [id number] ####[facility] [place] [address] CONSULTon 06-29-2023 CONSULT - Attestation signed by [...] tobacco use comes as a transfer from [facility] due to suspected NSTEMI. Patient was [...] Her troponins were elevated at [address] [facility] and recheck here shows 0.07. Patient [...] Value Ventricular Rate 61 Atrial Rate 61 NH Interval 150 (more content not included)... Normal [facility] HPon 06-29-2023 HP Interval Pre-Procedural H&P Reason for Consult: NSTEMI HPI: Vivian Vann is a 63 y.o. female with PMH of CAD s/p PCI to LAD (October 2021), HTN, HLD, COPD, tobacco use comes as a transfer from [facility] due to suspected NSTEMI. Patient was [...] Her troponins were elevated at [address] [facility] and recheck here shows 0.07. Patient [...] Value Ventricular Rate 61 Atrial Rate 61 NH Interval 150 QRS DURATION 88 QT Interval 476 QTC CALCULATION(BAZETT) 479 P [place] 68 R-[place] 25 T Wave [place] 128 Impression Normal sinus rhythm Right atrial [...] deformity. End (more content not included)... Normal [facility] LACTIC ACID WITH 4 HOUR REFL EXon 06-29-2023 LACTATE (MMOL/L) IN SER/PLAS 3.6 mmol/L Critically high 0.5-2.[address] [facility] Comment on above: Result Comment: M-NH EVIOUS CRITICAL RESULT Previous result verified on 06/29/2023 1809 on specimen/case [id number] called with component Lactate blood venous for procedure Lactic acid with 4 hour reflex with value 2.7 mmol/L. Performed By: #### L [id number] #### [facility] ([facility]) [address] [place] [address] LACTATE (MMOL/L) IN SER/PLAS 2.7 mmol/L Critically high 0.5-2.[address] [facility] Comment on above: Performed By: #### L [id number] #### [facility] ([facility]) [address] [place] [address] LACTATE (MMOL/L) IN SER/PLAS 2.5 mmol/L High 0.5-2.[address] [facility] Comment on above: Performed By: #### L [id number] ####[facility] ([facility])[address] [place] [address] MAGNESIUMon 06-29-2023 Magnesium [Mass/Vol] 2.1 mg/dL Normal 1.9-2.7 [facility] Comment on above: Performed By: #### L [id number] ####[facility] ([facility])[address] [place] [address] Magnesium [Mass/Vol] 2.2 mg/dL Normal 1.9-2.7 [facility] Comment on above: Performed By: #### L [id number] #### [facility] ([facility]) [address] [place] [address] Magnesium [Mass/Vol] 1.7 mg/dL Low 1.9-2.7 [facility] Comment on above: Performed By: #### L [id number] #### [facility] ([facility]) [address] [place] [address] NURSNOTEon 06-29-2023 NURSNOTE Notified [place] [facility] Hospitalist critical lactate 2.7 no orders received said she would recheck lactate in [address] [facility] PHOSPHORUSon 06-29-2023 Magnesium [Mass/Vol] 3.5 mg/dL Normal 2.5-5.0 [facility] Comment on above: Performed By: #### L [id number] ####[facility] ([facility])[address] [place] [address] PROTIME-INRon 06-29-2023 INR IN PPP BY COAGULATION ASSAY 0.98 Normal 0.90-1.[address] [facility] Comment on above: Result Comment: ACCC [...] CHEST 1995;108:[id number]. Performed By: #### L [id number] ####[facility] ([facility])[address] [place] [address] PROTHROMBIN TIME (PT) IN PPP BY COAGULATION ASSAY 13.0 Seconds Normal 12.3-14.[address] [facility] Comment on above: Performed By: #### L [id number] ####[facility] ([facility])[address] [place] [address] TROPONIN Ion 06-29-2023 Troponin I.cardiac [Mass/Vol] 0.06 ng/mL High 0.00-0.[address] [facility] Comment on above: Performed By: #### L [id number] #### [facility] ([facility]) [address] [place] [address] Troponin I.cardiac [Mass/Vol] 0.07 ng/mL High 0.00-0.[address] [facility] Comment on above: Performed By: #### L [id number] ####[facility] ([facility])[address] [place] [address] Troponin I.cardiac [Mass/Vol] 0.07 ng/mL High 0.00-0.[address] [facility] Comment on above: Performed By: #### L [id number] #### [facility] ([facility]) [address] [place] [address] CBC W MANUAL DIFFon 08-25-19 23 ANISOCYTOSIS 1+ Normal [facility] Comment on above: Performed By: #### Isabell PONCE ####[facility] [id number] [place] [address]Dr. Nahed Yañez ATYPICAL LYMPH # Normal [facility] Comment on above: Performed By: #### C BCMAN ####[facility] [id number] [place] [id number]. Nahed Yañez ATYPICAL LYMPH % Normal [facility] Comment on above: Performed By: #### C BCMAN ####[facility] Scztchnqzk2413 [place] [id number]. Yilan Yañez BAND # 0.2 103/ul Normal 0.0-0.[address] [facility] Comment on above: Performed By: #### C BCMAN ####[facility] Rxxfbkoonl3040 [place] [address]Dr. Rosemarielan Yañez BAND % 1 % Normal 0-[address] [facility] Comment on above: Performed By: #### C BCISAIAH ####[facility] Bnalntlrwq2814 [place] [address]Dr. Nahed Yañez BASOM # 0.00 103/ul Normal 0.00-0.[address] [facility] Comment on above: Performed By: #### C BCISAIAH ####[facility] Hpktnnhapo1803 [place] [address]Dr. Nahed Yañez BASOM % 0.0 % Critically low 0.2-2.0 The [facility] Comment on above: Performed By: #### C BCISAIAH ####[facility] Pnghrllhmu1425 [place] [address]Dr. Nahed Yañez BLAST # Normal The [facility] Comment on above: Performed By: #### C BCISAIAH ####[facility] Dbsoirtghp3253 [place] [address]Dr. Nahed Yañez BLAST % Normal The [facility] Comment on above: Performed By: #### C BCISAIAH ####[facility] Kgxvzhcirz2187 [place] [address]Dr. Nahed Yañez CORRECTED WBC Normal 4.0-11.0 The [facility] Comment on above: Performed By: #### C BCISAIAH ####[facility] Kslmutxvbz8601 [place] [address]Dr. Yilan Yañez EOS # 0.00 103/ul Normal 0.00-0.70 [facility] Comment on above: Performed By: #### C ROSARIO ####[facility] Rqrcoehbcq0132 [place] [id number]. Nahed Yañez EOS% 0.0 % Critically low 0.9-7.0 [facility] Comment on above: Performed By: #### C ROSARIO ####[facility] Muhaolvscc0878 [place] [address]Dr. Nahed Yañez HCT 33.9 % Critically low 36.0-48.0 The [facility] Comment on above: Performed By: #### C ROSARIO ####[facility] Ewkinffktz0327 [place] [address]Dr. Nahed Yañez HGB 10.8 g/dl Critically low 12.0-16.0 [facility] Comment on above: Performed By: #### C ROSARIO ####[facility] Qrbvabtdsn[address] [place], [place] [address]Dr. Nahed Yañez HYPOCHROMASIA SLIGHT Normal [facility] Comment on above: Performed By: #### C ROSARIO ####[facility] Kekobbaube[address] [place], [place] [id number]. Nahed Yañez LYMPHM # 2.59 103/ul Normal 1.20-3.80 [facility] Comment on above: Performed By: #### C ROSARIO ####[facility] Thcvwbbyjl3837 [place] [address]Dr. Nahed Yañez LYMPHM% 16.0 % Critically low 20.5-60.0 The [facility] Comment on above: Performed By: #### C ROSARIO ####[facility] Yixzvunmuw0485 [place] [phone]. Nahed Yañez MCH 28.5 pg Normal 26.7-34.[address] [facility] Comment on above: Performed By: #### C ROSARIO ####[facility] Pxzwaybgzv9039 [place] [address]Dr. Nahed Yañez MCHC 31.9 g/dl Normal 29.9-35.[address] [facility] Comment on above: Performed By: #### Isabell PONCE ####[facility] Cvoytfywnj4166 [place] [phone]. Nahed Yañez MCV 89.4 fL Normal 81.0-99.[address] [facility] Comment on above: Performed By: #### C ROSARIO ####[facility] Uhuntdghtn9200 [place] [phone]. Nahed Yañez METAMYELOCYTE # Normal The [facility] Comment on above: Performed By: #### C ROSARIO ####[facility] Raevhebchn5860 [place] [address]Dr. Nahed Yañez METAMYELOCYTE % Normal The [facility] Comment on above: Performed By: #### C ROSARIO ####[facility] Uybgsbhjen3[address] [place], [place] [address]Dr. Nahed Yañez MONOM# 1.30 103/ul Critically high 0.30-0.80 [facility] Comment on above: Performed By: #### Isabell PONCE ####[facility] Rkhazgphzy4[address] [place], [place] [address]Dr. Nahed Yañez MONOM% 8.0 % Normal 1.7-12.0 [facility] Comment on above: Performed By: #### Isabell PONCE ####[facility] Unonwzvxzu6[address] [place], [place] [address]Dr. Nahed Yañez MPV 9.8 fL Normal 9.5-13.5 [facility] Comment on above: Performed By: #### Isabell PONCE ####[facility] Ahidolvcyo99[address] [place], [place] [address]Dr. Nahed Yañez MYELOCYTE # Normal The [facility] Comment on above: Performed By: #### Isabell PONCE ####[facility] Oprabxvwou119[address] [place], [place] [address]Dr. Nahed Yañez MYELOCYTE % Normal The [facility] Comment on above: Performed By: #### Isabell PONCE ####[facility] Uugjupejlp7[address] [place], [place] [address]Dr. Nahed Yañez NRBC Normal The [facility] Comment on above: Performed By: #### Isabell PONCE ####[facility] Idilrsmgnn7222 [place], [place] [address]Wj. Nahed Yañez PLT 302 103/ul Normal 150-[address] [facility] Comment on above: Performed By: #### C ROSARIO ####[facility] Khhfdhcwdk8951 [place], [place] [address]Wc. Nahed Yañez RBC 3.79 106/ul Critically low 4.20-5.40 [facility] Comment on above: Performed By: #### C ROSARIO ####[facility] Snoxjmuwjb0225 [place], [place] [address]Wo. Nahed Yañez RDW 15.3 % Critically high 11.0-15.0 The [facility] Comment on above: Performed By: #### C ROSARIO ####[facility] Zzdruqtudu5427 [place], [place] [address]Wy. Nahed Yañez SEG # 12.15 103/ul Critically high 1.40-6.50 [facility] Comment on above: Performed By: #### C ROSARIO ####[facility] Qytsjcolpx9685 [place], [place] [address]Qh. Nahed Yañez SEG % 75.0 % Normal 43.0-75.0 [facility] Comment on above: Performed By: #### C ROSARIO ####[facility] Reccuxjocp2537 [place], [place] [address]Nf. Nahed Yañez WBC 16.2 103/ul Critically high 4.0-11.0 [facility] Comment on above: Performed By: #### C ROSARIO ####[facility] Eslcpjueyt7148 [place], [place] [address]Mv. Nahed Yañez POINT OF CARE GLUCOSEon 08-12 Glucose [Mass/Vol] 221 mg/dL Critically high 74-106 [facility] Comment on above: Performed By: #### P OCGLUC ####[facility] Riioyjjnnz4562 [place] [phone] Yañez PROF 14(COMP METB)on 023 Albumin [Mass/Vol] 2.2 g/dL Critically low 3.4-5.0 [facility] Comment on above: Performed By: #### C RENZO, JUDY ####[facility] Hoiiucdcjs1478 [place] [phone]. Nahed Yañez Albumin/Globulin [Mass ratio] 0.6 {ratio} Normal [facility] Comment on above: Performed By: #### C RENZO, JUDY ####[facility] Zmorscsilm5647 [place] [phone]. Nahed Yañez ALP [Catalytic activity/Vol] 87 U/L Normal 46-116 [facility] Comment on above: Performed By: #### C RENZO, JUDY ####[facility] Ohcfdjatoa1196 [place] [phone]. Nahed Yañez ALT [Catalytic activity/Vol] 17 U/L Normal 14-59 [facility] Comment on above: Performed By: #### C RENZO, JUDY ####[facility] Szfungkctv3631 [place] [phone]. Nahed Yañez Anion gap [Moles/Vol] 9.4 mmol/L Normal [facility] Comment on above: Performed By: #### C RENZO, JUDY ####[facility] Sblcgevetx2678 [place] [phone]. Nahed Yañez AST [Catalytic activity/Vol] 13 U/L Critically low 15-37 [facility] Comment on above: Performed By: #### C RENZO, JUDY ####[facility] Etkcwyvshd9473 [place] [phone]. Nahed Yañez Bilirubin [Mass/Vol] 0.2 mg/dL Normal 0.2-1.0 [facility] Comment on above: Performed By: #### C RENZO, JUDY ####[facility] Abwtamdutd2273 [place] [phone]. Nahed Yañez Calcium [Mass/Vol] 9.1 mg/dL Normal 8.5-10.1 [facility] Comment on above: Performed By: #### C RENZO, JUDY ####[facility] Kaqkifmdsh8907 [place] [phone]. Nahed Yañez Chloride [Moles/Vol] 103 mmol/L Normal 98-107 [facility] Comment on above: Performed By: #### C MP, JUDY ####[facility] Rppzngrlqi3545 [place] [address]Dr. Nahed Otilio CO2 [Moles/Vol] 29.1 mmol/L Normal 21.0-32.0 [facility] Comment on above: Performed By: #### C MP, JUDY ####[facility] Dzeawxtrza6284 [place] [address]Dr. Nahed Otilio Creatinine [Mass/Vol] 1.05 mg/dL Critically high 0.55-1.02 [facility] Comment on above: Performed By: #### C RENZO, JUDY ####[facility] Retfutfhnk54[address] [place], [place] [address]Dr. Nahed Otilio EGFR-AF MONTSERRATIAN >60 Normal >=60 [facility] Comment on above: Performed By: #### C RENZO, JUDY ####[facility] Jiquhkxoox1520[address] [place], [place] [address]Dr. Nahed Otilio EGFR-NON AF MONTSERRATIAN 53 mL/min/1.73m2 Critically low >=60 [facility] Comment on above: Performed By: #### C RENZO, JUDY ####[facility] Vaibdqdvcm9940[address] [place], [place] [address]Dr. Rosemarieashley Yañez Globulin (S) [Mass/Vol] 3.5 g/dL Normal [facility] Comment on above: Performed By: #### C RENZO, JUDY ####[facility] Mrjennqxhr4[address] [place], [place] [address]Dr. Nahed Otilio Glucose [Mass/Vol] 121 mg/dL Critically high 74-106 [facility] Comment on above: Performed By: #### C RENZO, JUDY ####[facility] Znnurmeuwc7744[address] [place], [place] [address]Dr. Nahed Yañez Potassium [Moles/Vol] 4.5 mmol/L Normal 3.5-5.1 [facility] Comment on above: Performed By: #### C RENZO, JUDY ####[facility] Bzvbmqfsgp8236[address] [place], [place] [address]Dr. Nahed Yañez Protein [Mass/Vol] 5.7 g/dL Critically low 6.4-8.[address] [facility] Comment on above: Performed By: #### C RENZO, JUDY ####[facility] Ehjievtwmx9451 [place] [address]Dr. Nahed Yañez Sodium [Moles/Vol] 137 mmol/L Normal 136-145 [facility] Comment on above: Performed By: #### C RENZO, JUDY ####[facility] Izmvmsmnpo1410 [place] [address]Dr. Nahed Yañez Urea nitrogen [Mass/Vol] 24.0 mg/dL Critically high 7.0-18.0 [facility] Comment on above: Performed By: #### C RENZO, JUDY ####[facility] Uslzvgrifw1423[address] [place], [place] [address]Dr. Nahed Yañez Urea nitrogen/Creatinine [Mass ratio] 22.9 mg/mg Normal [facility] Comment on above: Performed By: #### C RENZO, JUDY ####[facility] Vcqljgmnht3975[address] [place], [place] [address]Dr. Nahed Otilio THEOPHYLLINEon 08-24-2022 THEOPHYLLINE 18.2 ug/mL Normal 10.0-20.0 [facility] Comment on above: Performed By: #### C RENZO, JUDY ####[facility] Syrdinuwrc4048[address] [place], [place] [address]Dr. Nahed Otilio CBC W MANUAL DIFFon 08-24-19 23 ATYPICAL LYMPH # 0.20 103/ul Normal [facility] Comment on above: Performed By: #### Isabell PONCE ####[facility] Nlaulfxftf[address] [place], [place] [address]Dr. Nahed Otilio ATYPICAL LYMPH % 1 % Normal [facility] Comment on above: Performed By: #### Isabell PONCE ####[facility] Uimgxaavqt1717[address] [place], [place] [address]Dr. Rosemarieashley Otilio BAND # 0.0 103/ul Normal 0.0-0.3 [facility] Comment on above: Performed By: #### Isabell PONCE ####[facility] Mzqfbcfhcf5032 [place] [address]Dr. Nahed Yañez BAND % 0 % Normal 0-[address] [facility] Comment on above: Performed By: #### C ROSARIO ####[facility] Jvwlxrtwbu2799 [place] [address]Dr. Nahed Yañez BASOM # 0.00 103/ul Normal 0.00-0.[address] [facility] Comment on above: Performed By: #### C BCISAIAH ####[facility] Othjzohylf8343 [place] [address]Dr. Nahed Yañez BASOM % 0.0 % Critically low 0.2-2.0 [facility] Comment on above: Performed By: #### C BCISAIAH ####[facility] Hzqzklewdq3989[address] [place], [place] [address]Dr. Nahed Yañez BLAST # Normal [facility] Comment on above: Performed By: #### C ROSARIO ####[facility] Gszwxznklw2675[address] [place], [place] [address]Dr. Nahed Yañez BLAST % Normal The [facility] Comment on above: Performed By: #### C ROSARIO ####[facility] Ilezaqvgcd379[address] [place], [place] [address]Dr. Nahed Yañez CORRECTED WBC Normal 4.0-11.0 The [facility] Comment on above: Performed By: #### C ROSARIO ####[facility] Pcorjgreeo4012 [place] [address]Dr. Nahed Yañez EOS # 0.00 103/ul Normal 0.00-0.[address] [facility] Comment on above: Performed By: #### C BCISAIAH ####[facility] Qtjpmldsex0545 [place] [address]Dr. Nahed Yañez EOS% 0.0 % Critically low 0.9-7.0 [facility] Comment on above: Performed By: #### C ROSARIO ####[facility] Woprqieuwh0[address] [place], [place] [address]Dr. Nahed Yañez HCT 33.5 % Critically low 36.0-48.0 [facility] Comment on above: Performed By: #### C ROSARIO ####[facility] Czoveigapa8472 [place], [place] [address]Vm. Nahed Yañez HGB 10.7 g/dl Critically low 12.0-16.0 [facility] Comment on above: Performed By: #### C ROSARIO ####[facility] Eahsmzwrva1116 [place], [place] [address]Qq. Nahed Yañez LYMPHM # 1.39 103/ul Normal 1.20-3.[address] [facility] Comment on above: Performed By: #### C ROSARIO ####[facility] Nbjwpdgkop4029 [place], [place] [address]Fo. Nahed Yañez LYMPHM% 7.0 % Critically low 20.5-60.0 [facility] Comment on above: Performed By: #### C ROSARIO ####[facility] Kzqytgunui6498 [place] [phone]. Nahed Yañez MCH 28.5 pg Normal 26.7-34.0 [facility] Comment on above: Performed By: #### C ROSARIO ####[facility] Ygepkxqtrh7155 [place] [phone]. Nahed Yañez MCHC 31.9 g/dl Normal 29.9-35.[address] [facility] Comment on above: Performed By: #### C ROSARIO ####[facility] Hzflxdbjah2361 [place], [place] [address]Da. Nahed Yañez MCV 89.1 fL Normal 81.0-99.[address] [facility] Comment on above: Performed By: #### C ROSARIO ####[facility] Boscoamkdl6039 [place], [place] [address]Se. Nahed Yañez METAMYELOCYTE # Normal The [facility] Comment on above: Performed By: #### C ROSARIO ####[facility] Zaumceqbdq3110 [place] [phone]. Nahed Yañez METAMYELOCYTE % Normal The [facility] Comment on above: Performed By: #### C ROSARIO ####[facility] Axptaouabo1271 [place] [phone]. Nahed Yañez MONOM# 0.40 103/ul Normal 0.30-0.80 [facility] Comment on above: Performed By: #### C BCISAIAH ####[facility] Yhvxjtrglk6375 [place] [phone]. Nahed Otilio MONOM% 2.0 % Normal 1.7-12.0 [facility] Comment on above: Performed By: #### C ROSARIO ####[facility] Qqdihglsnw1419 [place] [phone]. Nahed Otilio MPV 10.0 fL Normal 9.5-13.5 [facility] Comment on above: Performed By: #### C BCISAIAH ####[facility] Mctymimhnc2513 [place] [phone]. Nahed Yañez MYELOCYTE # Normal [facility] Comment on above: Performed By: #### C ROSARIO ####[facility] Gboltauows2901 [place] [address]Dr. Nahed Yañez MYELOCYTE % Normal [facility] Comment on above: Performed By: #### C ROSARIO ####[facility] Fibnmsfsjn3401 [place] [address]Dr. Nahed Yañez NRBC Normal [facility] Comment on above: Performed By: #### C ROSARIO ####[facility] Rpycunxxdm9237 [place] [phone]. Nahed Yañez PLT 338 103/ul Normal 150-[address] [facility] Comment on above: Performed By: #### C ROSARIO ####[facility] Cuyadnwtld[address] [place], [place] [address]Dr. Nahed Otilio RBC 3.76 106/ul Critically low 4.20-5.40 [facility] Comment on above: Performed By: #### C ROSARIO ####[facility] Topbwckosm3909 [place] [phone]. Rosemarieashley Otilio RDW 15.3 % Critically high 11.0-15.0 The [facility] Comment on above: Performed By: #### C ROSARIO ####[facility] Ejxgwdossh4185 [place] [phone]. Nahed Yañez SEG # 17.91 103/ul Critically high 1.40-6.50 [facility] Comment on above: Performed By: #### C BCMAN ####[facility] Zgjomeprwr9669 [place] [address]Dr. Nahed Otilio SEG % 90.0 % Critically high 43.0-75.0 [facility] Comment on above: Performed By: #### C BCMAN ####[facility] Ullldomfpm3006 [place] [address]Dr. Nahed Otilio WBC 19.9 103/ul Critically high 4.0-11.0 [facility] Comment on above: Performed By: #### C BCMAN ####[facility] Wtfekqjzdt2486 [place] [address]Dr. Nahed Yañez POINT OF CARE GLUCOSEon 08-12 Glucose [Mass/Vol] 200 mg/dL Critically high 74-106 [facility] Comment on above: Performed By: #### P OCGLUC ####[facility] Zyvlvahzmz[address] [place], [place] [address]Dr. Nahed Yañez Glucose [Mass/Vol] 131 mg/dL Critically high 74-106 [facility] Comment on above: Performed By: #### P OCGLUC ####[facility] Fageairode637[address] [place], [place] [address]Dr. Nahed Otilio Glucose [Mass/Vol] 176 mg/dL Critically high 74-106 [facility] Comment on above: Performed By: #### P OCGLUC ####[facility] Bsfunalxca005[address] [place], [place] [address]Dr. Nahed Yañez PROF 14(COMP METB)on 023 Albumin [Mass/Vol] 2.2 g/dL Critically low 3.4-5.0 [facility] Comment on above: Performed By: #### Nydia ELLER CMP ####[facility] Zirfcajpee4210 [place] [address]Dr. Nahed Yañez Albumin/Globulin [Mass ratio] 0.6 {ratio} Normal [facility] Comment on above: Performed By: #### Nydia ELLER CMP ####[facility] Fbwkwgquzo4486 [place] [address]Dr. Nahed Yañez ALP [Catalytic activity/Vol] 101 U/L Normal 46-116 [facility] Comment on above: Performed By: #### Nydia ELLER CMP ####[facility] Toqegkwihq4819 [place] [address]Dr. Nahed Yañez ALT [Catalytic activity/Vol] 19 U/L Normal 14-59 [facility] Comment on above: Performed By: #### Nydia ELLER CMP ####[facility] Uuhqtxfqzj9953 [place] [address]Dr. Nahed Yañez Anion gap [Moles/Vol] 12.0 mmol/L Normal [facility] Comment on above: Performed By: #### Nydia ELLER CMP ####[facility] Bsfjwjajzc95[address] [place], [place] [address]Dr. Nahed Yañez AST [Catalytic activity/Vol] 14 U/L Critically low 15-37 [facility] Comment on above: Performed By: #### Nydia ELLER CMP ####[facility] Dokwgrycxz3147[address] [place], [place] [address]Dr. Nahed Yañez Bilirubin [Mass/Vol] 0.2 mg/dL Normal 0.2-1.[address] [facility] Comment on above: Performed By: #### Nydia ELLER CMP ####[facility] Engqpxepby3537[address] [place], [place] [address]Dr. Nahed Yañez Calcium [Mass/Vol] 9.5 mg/dL Normal 8.5-10.1 [facility] Comment on above: Performed By: #### Nydia ELLER CMP ####[facility] Kbhkgjhzon7934 [place] [address]Dr. Nahed Otilio Chloride [Moles/Vol] 105 mmol/L Normal 98-[address] [facility] Comment on above: Performed By: #### Nydia ELLER CMP ####[facility] Iudnpnqwob9464[address] [place], [place] [address]Dr. Rosemarieashley Yañez CO2 [Moles/Vol] 27.9 mmol/L Normal 21.0-32.0 [facility] Comment on above: Performed By: #### T RAFITA, CMP ####[facility] Vdzpqqqgsn2370 [place] [phone]. Nahed Yañez Creatinine [Mass/Vol] 1.08 mg/dL Critically high 0.55-1.02 [facility] Comment on above: Performed By: #### Nydia ELLER, CMP ####[facility] Xlvqsdecoq7703 [place] [phone]. Nahed Yañez EGFR-AF MONTSERRATIAN >60 Normal >=60 [facility] Comment on above: Performed By: #### Nydia ELLER, CMP ####[facility] Kraxnenqsy5553 [place] [phone]. Nahed Otilio EGFR-NON AF MONTSERRATIAN 52 mL/min/1.73m2 Critically low >=60 [facility] Comment on above: Performed By: #### Nydia ELLER CMP ####[facility] Eowbjkxscl9448 [place] [address]Dr. Nahed Yañez Globulin (S) [Mass/Vol] 3.7 g/dL Normal [facility] Comment on above: Performed By: #### Nydia ELLER CMP ####[facility] Juhtgxprxk9587 [place] [phone]. Nahed Yañez Glucose [Mass/Vol] 182 mg/dL Critically high 74-106 [facility] Comment on above: Performed By: #### Nydia ELLER CMP ####[facility] Juzojfvzgv[address] [place], [place] [address]Dr. Nahed Yañez Potassium [Moles/Vol] 3.9 mmol/L Normal 3.5-5.1 [facility] Comment on above: Performed By: #### Nydia ELLER, CMP ####[facility] Ffdlcuzrsh8217 [place] [phone]. Nahed Yañez Protein [Mass/Vol] 5.9 g/dL Critically low 6.4-8.2 Th [facility] Comment on above: Performed By: #### Nydia LELER, CMP ####[facility] Fsycwergmq7122 [place] [phone]. Nahed Yañez Sodium [Moles/Vol] 141 mmol/L Normal 136-[address] [facility] Comment on above: Performed By: #### Nydia ELLER, CMP ####[facility] Ocpgxnmlrp9[address] [place], [place] [address]Dr. Nahed Yañez Urea nitrogen [Mass/Vol] 20.0 mg/dL Critically high 7.0-18.0 [facility] Comment on above: Performed By: #### Nydia ELLER CMP ####[facility] Ksazrmsujr[address] [place], [place] [address]Dr. Nahed Otilio Urea nitrogen/Creatinine [Mass ratio] 18.5 mg/mg Normal [facility] Comment on above: Performed By: #### Nydia ELLER CMP ####[facility] Lhaogahiwc29[address] [place], [place] [address]Dr. Nahed Otilio THEOPHYLLINEon 08-23-2022 THEOPHYLLINE 22.9 ug/mL Critically high 10.0-20.0 [facility] Comment on above: Performed By: #### Nydia ELLER CMP ####[facility] Vtiqwuxtxi13[address] [place], [place] [address]Dr. Nahed Otilio CBC AUTO DIFFon 08-22-2022 BASO # 0.0 103/ul Normal 0.0-0.1 [facility] Comment on above: Performed By: #### C BC ####[facility] Zzziuvgjtr6[address] [place], [place] [address]Dr. Nahed Yañez Basophils/100 WBC (Bld) 0.1 % Critically low 0.2-2.[address] [facility] Comment on above: Performed By: #### C BC ####[facility] Onjmdidqne[address] [place], [place] [address]Dr. Rosemarieashley Otilio EO # 0.0 103/ul Normal 0.0-0.[address] [facility] Comment on above: Performed By: #### C BC ####[facility] Ukeadfkfcp[address] [place], [place] [address]Dr. Rosemarieashley Otilio Eosinophils/100 WBC (Bld) 0.0 % Critically low 0.9-7.[address] [facility] Comment on above: Performed By: #### C BC ####[facility] Jdybaxveej[address] [place], [place] [id number]. Nahed Yañez Erythrocyte distribution width (RBC) [Ratio] 15.1 % Critically high 11.0-15.[address] [facility] Comment on above: Performed By: #### C BC ####[facility] Zfzybkrqbk9[address] [place] [address]Dr. Nahed Yañez Hematocrit (Bld) [Volume fraction] 31.4 % Critically low 36.0-48.[address] [facility] Comment on above: Performed By: #### C BC ####[facility] Tjgjchoufk[address] [place], [place] [address]Dr. Nahed Yañez Hemoglobin (Bld) [Mass/Vol] 10.2 g/dL Critically low 12.0-16.[address] [facility] Comment on above: Performed By: #### C BC ####[facility] Qdcqdawbrd4[address] [place], [place] [address]Dr. Nahed Yañez IG # 0.08 10e3/ul Critically high 0.00-0.03 [facility] Comment on above: Performed By: #### C BC ####[facility] Ygcbntmbhz[address] [place], [place] [address]Dr. Nahed Yañez IG % 0.6 % Critically high 0.0-0.5 The [facility] Comment on above: Performed By: #### C BC ####[facility] Yqrkblxxtq34[address] [place], [place] [address]Dr. Nahed Yañez LYMPH # 0.9 103/ul Critically low 1.2-3.8 The [facility] Comment on above: Performed By: #### C BC ####[facility] Sxiwmoudip0701[address] [place], [place] [address]Dr. aNhed Yañez Lymphocytes/100 WBC (Bld) 6.1 % Critically low 20.5-60.[address] [facility] Comment on above: Performed By: #### C BC ####[facility] Wicurwmtoz7186[address] [place], [place] [address]Dr. Rosemarieashley Yañez MANUAL DIFF REQ NO Normal The [facility] Comment on above: Performed By: #### C BC ####[facility] Y[address]iezsh[address] [place] [address]Im. Nahed Yañez MCH (RBC) [Entitic mass] 28.3 pg Normal 26.7-34.[address] [facility] Comment on above: Performed By: #### C BC ####[facility] Jzkmbckspz1319 [place] [address]Dr. Nahed Yañez MCHC (RBC) [Mass/Vol] 32.5 g/dL Normal 29.9-35.[address] [facility] Comment on above: Performed By: #### C BC ####[facility] Zhnnuhprej1939[address] [place], [place] [address]Dr. Nahed Yañez MCV (RBC) [Entitic vol] 87.0 fL Normal 81.0-99.[address] [facility] Comment on above: Performed By: #### C BC ####[facility] Kikxcaqskx1086[address] [place], [place] [address]Dr. Nahed Yañez MONO # 0.7 103/ul Normal 0.3-0.[address] [facility] Comment on above: Performed By: #### C BC ####[facility] Qyraiuipce64[address] [place], [place] [address]Dr. Nahed Yañez Monocytes/100 WBC (Bld) 5.1 % Normal 1.7-12.[address] [facility] Comment on above: Performed By: #### C BC ####[facility] Qyemsxjmzx4224[address] [place], [place] [address]Dr. Nahed Yañez NEUT # 12.2 103/ul Critically high 1.4-6.5 The [facility] Comment on above: Performed By: #### C BC ####[facility] Kobnqrrwlf7[address] [place], [place] [address]Dr. Nahed Yañez Neutrophils/100 WBC (Bld) 88.1 % Critically high 43.0-75.[address] [facility] Comment on above: Performed By: #### C BC ####[facility] Wtqrteitlh1867[address] [place], [place] [address]Dr. Nahed Yañez Platelet mean volume (Bld) [Entitic vol] 10.2 fL Normal 9.5-13.[address] [facility] Comment on above: Performed By: #### C BC ####[facility] Aqjfzuseda0871 [place], [place] [address]Tv. Nahed Yañez PLT 271 103/ul Normal 150-450 [facility] Comment on above: Performed By: #### C BC ####[facility] Xoatkqjbiu5818 [place], [place] [address]Ea. Nahed Yañez RBC 3.61 106/ul Critically low 4.20-5.40 [facility] Comment on above: Performed By: #### C BC ####[facility] Jnqzmrjrob2775 [place], [place] [address]Vb. Nahed Yañez WBC 13.9 103/ul Critically high 4.0-11.0 [facility] Comment on above: Performed By: #### C BC ####[facility] [address]jcghtc9[address] [place] [id number]. Nahed Yañez CULTURE URINEon 08-22-2022 CULTURE URINE Culture Observations : LIGHT GROWTH OF MIXED GENITAL MIGUEL. NO POTENTIAL PATHOGENS SEEN. Normal [facility] Comment on above: Performed By: #### U RCX ####[facility] Uqhnkatlsw9715 [place] [phone]. Nahed Yañez POINT OF CARE GLUCOSEon 08-12 Glucose [Mass/Vol] 252 mg/dL Critically high 74-106 [facility] Comment on above: Performed By: #### P OCGLUC ####[facility] Syhycpmyod2290 [place] [id number]. Rosemarieashley Yañez Glucose [Mass/Vol] 293 mg/dL Critically high 74-106 [facility] Comment on above: Performed By: #### P OCGLUC ####[facility] Pnbppfufsp9514 [place] [id number]. Nahde Yañez Glucose [Mass/Vol] 292 mg/dL Critically high 74-106 [facility] Comment on above: Performed By: #### P OCGLUC ####[facility] Pulsusyazp6938 [place] [id number]. Nahed Yañez PROF 14(COMP METB)on 023 Albumin [Mass/Vol] 2.1 g/dL Critically low 3.4-5.0 [facility] Comment on above: Performed By: #### C MP ####[facility] Jqenwjsigj0329 [place] [address]Dr. Nahed Yañez Albumin/Globulin [Mass ratio] 0.5 {ratio} Normal [facility] Comment on above: Performed By: #### C MP ####[facility] Gqulixilae9371 [place] [address]Dr. Rosemarieashley Otilio ALP [Catalytic activity/Vol] 92 U/L Normal 46-116 [facility] Comment on above: Performed By: #### C MP ####[facility] Zfywiujybx092[address] [place], [place] [address]Dr. Nahed Yañez ALT [Catalytic activity/Vol] 19 U/L Normal 14-59 [facility] Comment on above: Performed By: #### C MP ####[facility] Jpgjjbcdcf5960[address] [place], [place] [address]Dr. Nahed Yañez Anion gap [Moles/Vol] 15.9 mmol/L Normal [facility] Comment on above: Performed By: #### C MP ####[facility] Sjxprmbnet49[address] [place], [place] [address]Dr. Nahed Yañez AST [Catalytic activity/Vol] 8 U/L Critically low 15-37 [facility] Comment on above: Performed By: #### C MP ####[facility] Srmidhgyws6[address] [place], [place] [address]Dr. Nahed Yañez Bilirubin [Mass/Vol] 0.3 mg/dL Normal 0.2-1.0 [facility] Comment on above: Performed By: #### C MP ####[facility] Oynqtwifjs1343[address] [place], [place] [address]Dr. Nahed Yañez Calcium [Mass/Vol] 9.4 mg/dL Normal 8.5-10.1 [facility] Comment on above: Performed By: #### C MP ####[facility] Bdvjswhebx[address] [place], [place] [address]Dr. Nahed Yañez Chloride [Moles/Vol] 101 mmol/L Normal 98-107 [facility] Comment on above: Performed By: #### C MP ####[facility] Whjusnwfmj4739 [place] [phone]. Nahed Yañez CO2 [Moles/Vol] 22.5 mmol/L Normal 21.0-32.0 [facility] Comment on above: Performed By: #### C MP ####[facility] Ckjtblksos0927 [place] [id number]. Nahed Yañez Creatinine [Mass/Vol] 1.16 mg/dL Critically high 0.55-1.02 [facility] Comment on above: Performed By: #### C MP ####[facility] Utvddxlouv1533 [place] [id number]. Nahed Yañez EGFR-AF MONTSERRATIAN 58 mL/min/1.73m2 Critically low >=60 [facility] Comment on above: Performed By: #### C MP ####[facility] Lijbldyklq1582 [place] [address]Dr. Nahed Otilio EGFR-NON AF MONTSERRATIAN 47 mL/min/1.73m2 Critically low >=60 [facility] Comment on above: Performed By: #### C MP ####[facility] Rypspkjwzk1090 [place] [address]Dr. Nahed Otilio Globulin (S) [Mass/Vol] 4.2 g/dL Normal [facility] Comment on above: Performed By: #### C MP ####[facility] Wedjbtatiy6996 [place] [address]Dr. Nhaed Otilio Glucose [Mass/Vol] 409 mg/dL Critically high 74-106 [facility] Comment on above: Performed By: #### C MP ####[facility] Hgbxxvnown4117 [place] [phone]. Nahed Yañez Potassium [Moles/Vol] 3.4 mmol/L Critically low 3.5-5.1 [facility] Comment on above: Performed By: #### C MP ####[facility] Pdyzgtnwmn0185 [place] [phone]. Nahed Otilio Protein [Mass/Vol] 6.3 g/dL Critically low 6.4-8.2 [facility] Comment on above: Performed By: #### C MP ####[facility] Qmmgkzfiuw9244 [place] [address]Dr. Nahed Yañez Sodium [Moles/Vol] 136 mmol/L Normal 136-145 [facility] Comment on above: Performed By: #### C MP ####[facility] Xlvbpezkjp9134 [place] [address]Dr. Nahed Yañez Urea nitrogen [Mass/Vol] 16.0 mg/dL Normal 7.0-18.0 [facility] Comment on above: Performed By: #### C MP ####[facility] Bmntaiupho9127 [place] [address]Dr. Nahed Yañez Urea nitrogen/Creatinine [Mass ratio] 13.8 mg/mg Normal [facility] Comment on above: Performed By: #### C MP ####[facility] Zfuivytchp3253 [place] [address]Dr. Nahed Yañez THEOPHYLLINEon 08-22-2022 THEOPHYLLINE 13.4 ug/mL Normal 10.0-20.0 [facility] Comment on above: Performed By: #### T RAFITA ####[facility] Fkgkhlncvc033[address] [place], [place] [address]Dr. Nahed Yañez UA RANDOM W/MICROSCOPICon BACTERIA NONE SEEN Normal NONE SEEN [facility] Comment on above: Performed By: #### U AMIC ####[facility] Tqwlaagpuw9324 [place] [address]Dr. Nahed Yañez Bilirubin Ql (U) Negative Normal NEGATIVE [facility] Comment on above: Performed By: #### U AMIC ####[facility] Pchmvsmndu8795 [place] [address]Dr. Nahed Yañez CAST NONE SEEN Normal NONE SEEN [facility] Comment on above: Performed By: #### U AMIC ####[facility] Azkacqcmzt1113 [place] [address]Dr. Nahed Yañez Clarity (U) CLEAR Normal CLEAR [facility] Comment on above: Performed By: #### U AMIC ####[facility] Byylmkqsxg[address] [place], [place] [id number]. Nahed Yañez Color (U) LT. YELLOW Normal YELLOW [facility] Comment on above: Performed By: #### U AMIC ####[facility] Xccbknwpfx9203[address] [place], [place] [address]Dr. Nahed Yañez Crystals LM Nom (Urine sed) NONE SEEN Normal NONE SEEN [facility] Comment on above: Performed By: #### U AMIC ####[facility] Jmwefsluvi1834[address] [place], [place] [address]Dr. Nahed Yañez Epithelial cells LM Ql (Urine sed) RARE Normal NONE SEEN /RARE [facility] Comment on above: Performed By: #### U AMIC ####[facility] Vidffdosin5780[address] [place], [place] [address]Dr. Nahed Yañez Glucose Ql (U) 100 mg/dl Abnormal NEGATIVE [facility] Comment on above: Performed By: #### U AMIC ####[facility] Vxjrmhqttm55[address] [place], [place] [address]Dr. Nahed Yañez Hemoglobin Ql (U) Negative Normal NEGATIVE [facility] Comment on above: Performed By: #### U AMIC ####[facility] Noulsddcvu668[address] [place], [place] [address]Dr. Nahed Yañez Ketones Ql (U) Negative Normal NEGATIVE [facility] Comment on above: Performed By: #### U AMIC ####[facility] Psdyabschy2664[address] [place], [place] [address]Dr. Nahed Yañez LEUKOCYTES Negative Normal NEGATIVE [facility] Comment on above: Performed By: #### U AMIC ####[facility] Pciajksajm[address] [place], [place] [address]Dr. Nahed Yañez MUCOUS NONE SEEN Normal NONE SEEN [facility] Comment on above: Performed By: #### U AMIC ####[facility] Yrxlrczjnb3225[address] [place], [place] [address]Dr. Nahed Yañez Nitrite Ql (U) Negative Normal NEGATIVE [facility] Comment on above: Performed By: #### U AMIC ####[facility] Ytdyeplmsr4599[address] [place], [place] [address]Dr. Nahed Yañez pH (U) 5.5 [pH] Normal 5-[address] [facility] Comment on above: Performed By: #### U AMIC ####[facility] Xqvsrorvbs1843 [place] [address]Dr. Nahed Yañez RBC NONE SEEN Abnormal 0-[address] [facility] Comment on above: Performed By: #### U AMIC ####[facility] Fjzbuqowgz7728 [place] [address]Dr. Nahed Yañez SPEC GRAVITY 1.020 Normal 1.005-<=1.02 5 [facility] Comment on above: Performed By: #### U AMIC ####[facility] Vsbsngjurb5833 [place] [address]Dr. Nahed Yañez UA PROTEIN Negative Normal NEGATIVE/ TRACE [facility] Comment on above: Performed By: #### U AMIC ####[facility] Fqzcrdelkm1351 [place] [address]Dr. Nahed Yañez Urobilinogen Qn (U) 0.2 {Alem'U}/dL Normal 0.2 - 1. 0 [facility] Comment on above: Performed By: #### U AMIC ####[facility] Esuuhmzwbq620[address] [place], [place] [address]Dr. Nahed Yañez WBC NONE SEEN Normal NONE SEEN [facility] Comment on above: Performed By: #### U AMIC ####[facility] Qchptjljcd7427 [place] [address]Dr. Nahed Yañez BLOOD GASES BTYon 08-21-2022 02 MODE ROOM AIR Normal [facility] Comment on above: Performed By: #### A BG ####[facility] Ziovmkusjk0003[address] [place], [place] [address]Dr. Nahed Yañez ALLENS TEST Positive Normal [facility] Comment on above: Performed By: #### A BG ####[facility] Gcfqadkxoa495[address] [place], [place] [address]Dr. Nahed Yañez Base excess Calc (Bld) [Moles/Vol] 3.2 mmol/L Critically high -2.0-2.[address] [facility] Comment on above: Performed By: #### A BG ####[facility] Zoarrripdu5796 [place] [address]Dr. Nahed Yañez BIPAP PRESSURE Normal [facility] Comment on above: Performed By: #### A BG ####[facility] Fbxmfivshy7033 [place] [address]Dr. Nahed Yañez CPAP Normal [facility] Comment on above: Performed By: #### A BG ####[facility] Dalmkqagiu5030[address] [place], [place] [address]Dr. Nahed Yañez FIO2 Normal [facility] Comment on above: Performed By: #### A BG ####[facility] Uuawwngfww1508[address] [place], [place] [address]Dr. Nahed Yañez HCO3 (Bld) [Moles/Vol] 26.8 mmol/L Critically high 22.0-26 .0 [facility] Comment on above: Performed By: #### A BG ####[facility] Oasusaraes349[address] [place], [place] [address]Dr. Nahed Yañez LPM Normal [facility] Comment on above: Performed By: #### A BG ####[facility] Sbesiragma6787[address] [place], [place] [address]Dr. Nahed Yañez MINUTE VOLUME Normal [facility] Comment on above: Performed By: #### A BG ####[facility] Roblbylliu4793[address] [place], [place] [address]Dr. Nahed Yañez Oxygen (Bld) [Partial pressure] 55.1 mm[Hg] Critically low 80.0-100.[address] [facility] Comment on above: Performed By: #### A BG ####[facility] Jytfrhalfa536[address] [place], [place] [address]Dr. Nahed Yañez Oxygen saturation in Blood 90.2 % Critically low 95.0-100.[address] [facility] Comment on above: Performed By: #### A BG ####[facility] Kdgvwrsdgh2385[address] [place], [place] [address]Dr. Nahed Yañez PCO2 36.7 mmHg Normal 35.0-45.0 [facility] Comment on above: Performed By: #### A BG ####[facility] Kutsterrou6165 [place] [address]Dr. Nahed Yañez PEEP [facility] Comment on above: Performed By: #### A BG ####[facility] Wkmqbkziiy6251 [place] [address]Dr. Nahed Yañez pH (Bld) 7.472 [pH] Critically high 7.350-7.450 [facility] Comment on above: Performed By: #### A BG ####[facility] Exdqvhqltz1922 [place] [address]Dr. Nahed Yañez PIP [facility] Comment on above: Performed By: #### A BG ####[facility] Pwmevmzhrk6[address] [place], [place] [address]Dr. Nahed Yañez PS [facility] Comment on above: Performed By: #### A BG ####[facility] Adaqpiqxat484[address] [place], [place] [address]Dr. Nahed Yañez PUNCTURE SITE LR Baltic [facility] Comment on above: Performed By: #### A BG ####[facility] Illrtworov[address] [place], [place] [address]Dr. Nahed Yañez RATE [facility] Comment on above: Performed By: #### A BG ####[facility] Htdoqqefzn354[address] [place], [place] [address]Dr. Nahed Yañez VENT MODE [facility] Comment on above: Performed By: #### A BG ####[facility] Erzhjzxzkn5860[address] [place], [place] [address]Dr. Nahed Yañez VT [facility] Comment on above: Performed By: #### A BG ####[facility] Scvczxvxvv3764[address] [place], [place] [address]Dr. Nahed Yañez BNPon 08-21-2022 Natriuretic peptide B (Bld) [Mass/Vol] 131.0 pg/mL Normal <=900.0 [facility] Comment on above: Performed By: #### B WORK ENVIRONMENT SAFETY INSPECTOR ####[facility] Ygiglbmrbn9038[address] [place], [place] [address]Dr. Nahed Yañez CARDIAC FRANCISCO 3-6on 3 CK [Catalytic activity/Vol] 17 U/L Critically low 26-[address] [facility] Comment on above: Performed By: #### C MREP ####[facility] Owqyaejjmt7693 [place] [address]Dr. Nahed Yañez CK.MB [Mass/Vol] ng/mL Normal <=3.60 [facility] Comment on above: Performed By: #### C MREP ####[facility] Mvpsvthaff2429 [place] [address]Dr. Nahed Yañez HSTROP 25.1 pg/mL Normal 4.0-51.[address] [facility] Comment on above: Result Comment: CUT- OFF POINTS HAVE BEEN ESTABLISHED BASED ON THE FOURTH UNIVERSAL DEFINITIONS OF MYOCARDIALINFARCTION. THE UPPER REFERENCE LIMIT (URL) OF TROPONIN, DEFINED THE 99TH PERCENTILE OFcTnI DISTRIBUTION IN A REFERENCE POPULATION, HAS BEEN CONFIRMED THE DECISION THRESHOLDFOR AK DIAGNOSIS. Performed By: #### C MREP ####[facility] Nbmczgqowd3506 [place] [address]Dr. Nahed Yañez CARDIAC FRANCISCO ADMITon 023 CK [Catalytic activity/Vol] 39 U/L Normal 26-192 [facility] Comment on above: Performed By: #### ERICK Ordonez MP ####[facility] Igcstmwwwe317[address] [place], [place] [address]Dr. Nahed Yañez CK.MB [Mass/Vol] ng/mL Normal <=3.60 [facility] Comment on above: Performed By: #### Mery MULLER CMADM ####[facility] Tyqclmrjgv0433[address] [place], [place] [address]Dr. Nahed Yañez HSTROP 24.4 pg/mL Normal 4.0-51.[address] [facility] Comment on above: Result Comment: CUT- OFF POINTS HAVE BEEN ESTABLISHED BASED ON THE FOURTH UNIVERSAL DEFINITIONS OF MYOCARDIALINFARCTION. THE UPPER REFERENCE LIMIT (URL) OF TROPONIN, DEFINED THE 99TH PERCENTILE OFcTnI DISTRIBUTION IN A REFERENCE POPULATION, HAS BEEN CONFIRMED THE DECISION THRESHOLDFOR [place] DIAGNOSIS. Performed By: #### ERICK Ordonez MP ####[facility] Joxhegllfq988[address] [place], [place] [address]Dr. Nahed Yañez ANDRE 48 ng/mL Normal 9-[address] [facility] Comment on above: Performed By: #### B MP, CMADM ####[facility] Auafkutqup[address] [place], [place] [address]Dr. Nahed Yañez CBC AUTO DIFFon 08-21-2022 BASO # 0.0 103/ul Normal 0.0-0.[address] [facility] Comment on above: Performed By: #### C BC ####[facility] Jtjikewtnx5714[address] [place], [place] [address]Dr. Nahed Yañez Basophils/100 WBC (Bld) 0.2 % Normal 0.2-2.[address] [facility] Comment on above: Performed By: #### C BC ####[facility] Xykalhnjsv4649[address] [place], [place] [address]Dr. Nahed Yañez EO # 0.3 103/ul Normal 0.0-0.[address] [facility] Comment on above: Performed By: #### C BC ####[facility] Puziqousoi752[address] [place], [place] [address]Dr. Nahed Yañez Eosinophils/100 WBC (Bld) 1.5 % Normal 0.9-7.[address] [facility] Comment on above: Performed By: #### C BC ####[facility] Qjnyjhoqby9[address] [place], [place] [address]Dr. Nahed Yañez Erythrocyte distribution width (RBC) [Ratio] 15.0 % Normal 11.0-15.[address] [facility] Comment on above: Performed By: #### C BC ####[facility] Yjpwhhvjgp217[address] [place], [place] [address]Dr. Nahed Yañez Hematocrit (Bld) [Volume fraction] 41.4 % Normal 36.0-48.[address] [facility] Comment on above: Performed By: #### C BC ####[facility] Htsgthzbrg7155[address] [place], [place] [address]Dr. Nahed Yañez Hemoglobin (Bld) [Mass/Vol] 13.5 g/dL Normal 12.0-16.[address] [facility] Comment on above: Performed By: #### C BC ####[facility] Ghgijfgagf4180 [place] [address]Dr. Nahed Yañez IG # 0.18 10e3/ul Critically high 0.00-0.03 [facility] Comment on above: Performed By: #### C BC ####[facility] Hmnenhhspn7886 [place] [address]Dr. Nahed Otilio IG % 1.0 % Critically high 0.0-0.5 The [facility] Comment on above: Performed By: #### C BC ####[facility] Rdvzwpzssp5515 [place] [address]Dr. Nahed Yañez LYMPH # 2.5 103/ul Normal 1.2-3.[address] [facility] Comment on above: Performed By: #### C BC ####[facility] Fxqspjjhfn0718 [place] [address]Dr. Nahed Yañez Lymphocytes/100 WBC (Bld) 14.0 % Critically low 20.5-60.[address] [facility] Comment on above: Performed By: #### C BC ####[facility] Syrcrduewm4[address] [place], [place] [address]Dr. Rosemarieashley Yañez MANUAL DIFF REQ NO Normal [facility] Comment on above: Performed By: #### C BC ####[facility] Ihkdddispj[address] [place] [address]Dr. Nahed Yañez MCH (RBC) [Entitic mass] 28.5 pg Normal 26.7-34.[address] [facility] Comment on above: Performed By: #### C BC ####[facility] M[address] [place], [place] [address]Dr. Nahed Otilio MCHC (RBC) [Mass/Vol] 32.6 g/dL Normal 29.9-35.[address] [facility] Comment on above: Performed By: #### C BC ####[facility] U[address] [place], [place] [address]DrSahun Nahed Otilio MCV (RBC) [Entitic vol] 87.3 fL Normal 81.0-99.[address] [facility] Comment on above: Performed By: #### C BC ####[facility] [address] [place] [id number]. Nahed Yañez MONO # 1.2 103/ul Critically high 0.3-0.8 The [facility] Comment on above: Performed By: #### C BC ####[facility] [address] [place] [id number]. Nahed Yañez Monocytes/100 WBC (Bld) 6.8 % Normal 1.7-12.[address] [facility] Comment on above: Performed By: #### C BC ####[facility] Q[address]fwasf[address] [place], [place] [id number]. Nahed Yañez NEUT # 13.8 103/ul Critically high 1.4-6.5 [facility] Comment on above: Performed By: #### C BC ####[facility] M[address]cw[address] [place], [place] [address]Dr. Nahed Yañez Neutrophils/100 WBC (Bld) 76.5 % Critically high 43.0-75.[address] [facility] Comment on above: Performed By: #### C BC ####[facility] [address] [place], [place] [address]Dr. Nahed Yañez Platelet mean volume (Bld) [Entitic vol] 10.5 fL Normal 9.5-13.[address] [facility] Comment on above: Performed By: #### C BC ####[facility] [address] [place], [place] [address]Dr. Nahed Yañez PLT 319 103/ul Normal 150-[address] [facility] Comment on above: Performed By: #### C BC ####[facility] U[address] [place], [place] [address]Dr. Nahed Yañez RBC 4.74 106/ul Normal 4.20-5.[address] [facility] Comment on above: Performed By: #### C BC ####[facility] W[address] [place], [place] [address]Dr. Nahed Yañez WBC 18.0 103/ul Critically high 4.0-11.0 [facility] Comment on above: Performed By: #### C BC ####[facility] S[address]vb[address] [place], [place] [address]Dr. Nahed Yañez CULTURE BLOODon 08-21-2022 Microscopic examination of blood, culture Culture Observations: NO GROWTH AT 5 DAYS. Normal [facility] Comment on above: Performed By: #### B LDCX2 ####[facility] [address] [place] [address]Dr. Nahed Yañez Microscopic examination of blood, culture Culture Observations: NO GROWTH AT 5 DAYS. Normal [facility] Comment on above: Performed By: #### B LDCX1 ####[facility] [address]fix[address] [place] [address]Dr. Nahed Yañez Covid-19 PCR (CVDTB)on 08-12 SARS-CoV-2 (COVID-19) RNA MIRNA+probe Ql (Unsp spec) Not detected Normal NOT DETECTED [facility] Comment on above: Result Comment: When [...] for this test is supported by the Electric Utility Lineworker of Health and Human Service's declaration that [...] be used). Performed By: #### C VDTBH ####[facility] [address]ptrms[address] [place] [address]Dr. Nahed Yañez LACTATE/LACTIC ACIDon 2022 Lactate [Moles/Vol] 1.1 mmol/L Normal 0.4-2.0 [facility] Comment on above: Performed By: #### L ACT ####[facility] [address] [place] [address]Dr. Nahed Yañez Lactate [Moles/Vol] 2.4 mmol/L Critically high 0.4-2.0 [facility] Comment on above: Performed By: #### L ACT ####[facility] [address] [place] [address]Dr. Nahed Yañez POINT OF CARE GLUCOSEon 08-12 Glucose [Mass/Vol] 453 mg/dL Critically high 74-106 [facility] Comment on above: Performed By: #### P OCGLUC ####[facility] A[address]gbx[address] [place] [address]Dr. Nahed Yañez Glucose [Mass/Vol] 358 mg/dL Critically high 74-106 [facility] Comment on above: Performed By: #### P OCGLUC ####[facility] Cowteazotp[address] [place], [place] [address]Dr. Nahed Yañez Glucose [Mass/Vol] 98 mg/dL Normal 74-106 [facility] Comment on above: Performed By: #### P OCGLUC ####[facility] [address]osmcfo[address] [place], [place] [address]Dr. Nahed Yañez PROF CHEM 8 (BAS METB)on Anion gap [Moles/Vol] 14.7 mmol/L Normal [facility] Comment on above: Performed By: #### B RENZO, CMADM ####[facility] [address]bx[address] [place], [place] [address]Dr. Nahed Yañez Calcium [Mass/Vol] 9.6 mg/dL Normal 8.5-10.1 [facility] Comment on above: Performed By: #### B RENZO, CMADM ####[facility] [address]us[address] [place] [address]Dr. Nahed Yañez Chloride [Moles/Vol] 95 mmol/L Critically low 98-107 [facility] Comment on above: Performed By: #### B RENZO, CMADM ####[facility] [address] [place] [address]Dr. Nahed Yañez CO2 [Moles/Vol] 25.2 mmol/L Normal 21.0-32.0 [facility] Comment on above: Performed By: #### B RENZO, CMADM ####[facility] [address] [place] [id number]. Nahed Yañez Creatinine [Mass/Vol] 1.15 mg/dL Critically high 0.55-1.02 [facility] Comment on above: Performed By: #### B RENZO, CMADM ####[facility] [address] [place] [address]Dr. Nahed Yañez EGFR-AF MONTSERRATIAN 58 mL/min/1.73m2 Critically low >=60 [facility] Comment on above: Performed By: #### B RENZO, CMADM ####[facility] [address] [place] [address]Dr. Nahed Yañez EGFR-NON AF MONTSERRATIAN 48 mL/min/1.73m2 Critically low >=60 [facility] Comment on above: Performed By: #### B RENZO, CMADM ####[facility] [address]qbkhulb[address] [place], [place] [address]Dr. Nahed Yañez Glucose [Mass/Vol] 191 mg/dL Critically high 74-106 [facility] Comment on above: Performed By: #### B RENZO, CMADM ####[facility] I[address] [place], [place] [address]Dr. Nahed Yañez Potassium [Moles/Vol] 3.9 mmol/L Normal 3.5-5.1 [facility] Comment on above: Performed By: #### B RENZO, CMADM ####[facility] [address] [place], [place] [address]Dr. Nahed Yañez Sodium [Moles/Vol] 131 mmol/L Critically low 136-145 [facility] Comment on above: Performed By: #### B RENZO, CMADM ####[facility] Da[address]xszuvx[address] [place], [place] [address]Dr. Nahed Yañez Urea nitrogen [Mass/Vol] 15.0 mg/dL Normal 7.0-18.0 [facility] Comment on above: Performed By: #### B RENZO, CMADM ####[facility] N[address]ksq[address] [place], [place] [address]Dr. Nahed Yañez Urea nitrogen/Creatinine [Mass ratio] 13.0 mg/mg Normal [facility] Comment on above: Performed By: #### B RENZO, GRISELDA ####[facility] [address] [place], [place] [address]Si. Nahed Yañez XR CHEST 2 Von 08-21-2022 XR CHEST 2 V Normal [facility] Coding Summary.on 08-11-2022 Coding Summary. CD:[id number] W w+PGhlYWQ+KW5TPVCdJ70 kzZFcoF1nB2HVGGwFZexu LJICZAoOAiIbjvSiHN8vs XNjZXJu IC8+UI0qARNsPdixcNVnj 1K9uKN5E15oki5jCFkeaQ X9ACMvYpJxexpwe5cswLj 6IDcuNmluOyBt ZAPeiK91WBF1wL00Oz43s OYpjPNrr4pjnDo7AvNvIU JzRHO4nJxnYGaau1UeKZR aP41dmSHjq0A6 ISGesCgrlIGnSsSdrJA3t N0aJEbdcejvf2hptmpeCk n9li68xVEdh4S5jGB8R3G umvB1GTQdcHCx GdxzaSFCrX3dbhokx7xka ryrZtCsSMOtIIv2HIz5ZD BmsAgbYrYyIS10QOQ3UBH dbeXbU6YfVACl uPtbOzL7o0L2Wr8DM0XWA rsxA4TQMCKPRObocZX+PC 27dw79V0SoMoicWbc3OKI nZBO2hVW6gI2b IOHuSBywe1X3eHY9M8Bse mMdaj2vx6dyKTJfIOndK6 3iqFBna4D2JCAeqXY9NNP caPguHjUjsW05 Oyc+FUBtiHgmo8ElQqlwb 5fss5cyiFr4QifvIWUkws UprKljZEY0s8CnJg6zGKL rjYI5aLN9bW9a GsVgDbT3LBavH773WwRjm OHhBvcyY64sM3OywTP+PH EoKnn4KAJxgGsaXN9aG6V hZGRpbmctbGVm xOlrYG8uSYNpchszFDElt H4kZDPbL2n1MaUwXaG2KZ xhA1UdEWGmdcusVo62zV0 rJsXrTfZ8JZyu E8ZpeqY7FMAmaAKbJFfkU ZE5R09ft4H9YFRxNLJfRM N3eXQ7hE0frGgwlfsrsJJ mdDsgdmVydGlj DExvNUjlT733XYWicDdoS kNvZGluZyBEYXRlOiAgMD MvMzEvMjAyMzwvdGQ+PHR tHVO1nZxyDSZl rQIbHQmkLe4toEpzjHifC Y7iULTvfrycPXKwuW9eMZ RllALyqAduRX4dPUTbtvo rb196IbNvWAE1 JQTxwANgH1HhfM2iEuKeV CGrARIwU3OaaUAxRZpbR2 91JSemHeQ9TUPpsgAnZ0W sLWFsaWduOiB0 a9Q0Mb4Gw4AqvrziU2Rci VXnNfBdQwrrZUo1J5JqEp wvdHI+UN94POXnHN59TAm 4UYJ7vEtrQWiw GQVlC2PckO9fPsHsJVSpE GRkOyc+PHRhYmxlIHdpZH RoPScxMDAlJyBzdHlsZT0 xGq9iYUXeKMDm yZnccBGjIgUqr5xlBLUzA IgtLM2gdMbuQ7OxcVP1CY Lvz1f7Rn77W16gF4WhqQB +GVKdeYA7jUL2 aF7iLcYtLsI4PIzeP024N qBmmLYsQuxkr2ppg5owgR s1QkR1QDAqjuPqoPdiBGD 3l6EnEw88T22f IHdpZHRoPSIxNSUiIHZhb Jfhxw3agK2nDc7+PGNvbC Y3qON0xJ0kXaUhVrX1QBx kH052WkXvoZMh Zknea1xdn7rsfBc0HdWfJ GMcfpBiiTuuDKE0m8QcVz 62R2ZmaKdri3ApNzo3zn8 6rXDww9K7pTK3 N5ChSFPaseqtxEReaGgeP A6nVTAkqqbxGYQtsM7fMV ChQ4g5NeJvVwN1ROcrK6X enlJ9PBZauGYk VCJkfUZToH5bfvdhz8atm isvZsLwUVIxZWj9RJz9FS NpvMfuWfSbXBD2LiH1ZUW 8iHWelJ9kwTrg iofusC5gQsu+XIE0sKYdp AZPVK7cOvupgLE+PHRkIH V7mDwrAUirEFNvdU0nEKI xP4t5GyVeAoV7 OMpqN6TsgzX4YXQgeCRmM MTjtUKPhA1pzwddo6qvss foJnEdKERaUVr6KPx7EFX saWduOiBsZWZ0 ZwE1FTA8zXQnhG5pbDspv rwcwB4kSzj+QmlydGggRG L5TBp5O4EvFuu0FWQbbRz uAQ8iaWQvZZch Fe9nbUzlrRhwSU1bJTXbw nnpx439ExLkc3nkTVZhwV FzCVadVZO6E50za1S8NUA uXCJaODS0pWN4 oU1ssSrsjyzsyDYipGkpt fLukDerAHhdRIqyX623UM BmwEzwTkFxVIk0J2FbZtw 1AYDpyMolTD9b jGZzVCbnOr1beMrjaNrtG E9cIXVctjbbd130TrZby4 vfCJAxoKZyBUvaOFE8Y59 uw7Y4RHEqKYJb XIB7sYE5nX1pbIcywcckz GVmdDsgdmVydGljYWwtYW juO443GADovMsuUsJmzBs 8Z2RnGtu4XAEz fHbyFM5boAZwSYfeTg5yo QukiPtgLS8cVHRzwdlzm1 27AqEpq9ozBWNyhHTrMQo rQDB7Q31vx4E3 ZXGiJXUkYNK8wZH7nD9go GlnbjogbGVmdDsgdmVydG nnURsrTNhqP732LGTlaRe nPlBhdGllbnQg UFzqNSw0R2WsQzxfvJE+P V99CBMeGS45xWNgeZYwz6 xzdIb1AkGdFCAgAIS8vJt aKLctk8KlNDUv C52htRIit3V7HOSuxNjgc FIgGeFfjCV7tG6xZBfnmv typ4hhynsmDiopu9btbd7 7nX54W74eGMev ZHRoPSIzMCUiIHZhbGlnb s7uzB0gIk2+CGBrwQK5dT C7yJ1nDNJvSaI9RUpfL09 9InRvcCIvPjxj q7vjm4rqeLa1WcQ7JWFpq fIlqTneVOI0b5AiIt11F7 9sIHdpZHRoPSIyMCUiIHZ jnZhufu5zlN2k Ii8+PUQhzBY7lUL8pM1pW fMyItW4RDwqT947PpBkuP MhYeuwP69mN1NaoSB+PHR vRik5NKEgePcr AW2dzNTuUGzvPx5rDSA1R nHpXiRhAPniX5BtYKIvpi yozfljzFW5KRMzJHYhgG7 3Jh3duTdcGYNq sZCQeT7ncmqdt9zsorjuI kNrGURlBXs7LFp6QHMchI ogYlRrSWI7VuC9GJL3zKA cjK8piDpbotfi eR5tL0RxWWOuqzqfIo39z K0aNlDbXqI8ACrvSby+TU JFJE2XRFZLKMHFNMG6W4Q ySwg6NJXxmZse WD1tyVSkJWbyPx6jqWvql AqzCC1qTUPffqkgIGEncF 9zHIDxaSJehHrwJE4qTEH onnhsq787FqJc ONP2UQMcrKFjY9KluQ6pX eXhIBYyQUZpV0XrzYPhTO dqD965TJngFxM3WJQzujU sA3ObTUEnxIph OgK5g7F6Bp7kPI4cHC8qJ VGgYQ52MC87jORnf8B3cD N8F9QsSQHgzqtzhgxajOI 8IGLyXRNeiZ18 iOEdISbtPj1dt6L7e652X VZvUDVkaO53Th9ywHdxLF GxpDSSzS8kwmybl7lhofk gIzAwMDAwMDt0 QZa2WJExbOntSgBsZFY6L qY0YQV0cWOsbT0chAqedk yreU7iTux+NjEgWWVhcnM 3M4IbLcc8HOQt vEizQD4vsSThWTjiYx0ek NvjdOuwEU5uPZXhxtjdEV BhsF2ySFWcmBQnfKxqBN4 qQGTmmijxh104 BuPfPIK0KHLrwQZcV7Epx D4mPvJzKRSrRLUkV2OkeN YlHZzsD723JEpqElR8XQJ rnxEdK3GmWWDp tPzdVpJ0m6T7Yw2QZO2pq KD7R9VxLdn7LJXhzJiaZA 8kyCZyKVdrQr8wfLrhvWf tCE1pDNUdpdpy RQLtwJ4tCDTunEMzkPilT K7vVZFbssicz534SpLmHN T1CUTcdQHaG0VvvA2wJdL mOUSzYMNbT8Gb cHQmRReoC250VIwkTaS4R BVquqSlV4EoZOPklDbdQq U7n4G0Ap1SkQUlS9EkR7t 9H3DbUvmybMK+ AN86YWHeWH27qCBhbPDzn 2pkoYq5UeInFIThOAJ6kW ssANfql0VlTTMoQ68riOR ai8K6BQYnlZlj nFXvMwVonHT9gG7zIOzci gglu5dxpaakAetjt2uxqk 66qH23Y30bFCjaLTXxLLO zMCUiIHZhbGln wg2jxD0aNq2+XRMpwIF2o XX4cY2xVkLpNkB0EEkoI0 28SqUuuDFbEabfz5bie9g idAq9NsMeCIQa yfEudGfsIXB6g8PjBe49K 29sIHdpZHRoPSIyMCUiIH RsjLrnni4qaA3bGn7+PC9 fv3zewy49uR37 dHI+DNDkVBW4gWgxQLseO BTitA3yZSjtOgW9SROiOh VdwQ36jHFbCKraLw0otSy iqJjuKB4qJREb jjtcp826TbKnu9foKKJgd EVtIQdeVRV7X70rb8W5DB UgDLDcQCZ7zWU7tD6scNa nbjogbGVmdDsg kvOwyJktBVfdUVcxT804C UXvuJvyCtEaeZXoN7rpxb RHFV3sRbgfwWF+PHRkIHN 0eWxlPSdwYWRk bQ6oPTUmP2s4GoZpPkS2W WwoJ9JxpbD9UBPreWDkOM PwiMZZqJ1rqapsa1zelrb gIzAwMDAwMDt0 LPo6MPGgrNkzYsAqSID5H wV8LFC5wOZrbD7upWgxht pysF9kOwa+RklOOjwvdGQ +KYKmRYT2uTdz DMfsOIGmnG3hHBVfO3j2Q yNaRmI4EXzkW8PgryD1XN CygWHwHMWuaELNkM2yche ra1yqfhezAiVf ELDxYRp7XSj7ENQkiVizY cAwYXT0PhG5BTI6xVKaaF 2jjJhnxjjoqO8pPnt+TVJ OOjwvdGQ+PHRk KFB9cVfrEIroWSUesF4lM UAwW4v8SnObYbK2SJrvF1 YobpT5ZWHxcPUuOGFlhUZ UqB6ojdlux3hb injrRaBiWDYwOXh5ZPh0O GUzkShhLtXfPIC6WzL0OT P6zAZmlV4rhYevmngseK0 wOyc+OBP7UQT9 RH53NY97L0EyHcvsaSQhl +PHRhYmxlIHdpZHRoPS kmAPBwKqGjhUoaIZ1dEn7 yZGVyLWNvbGxh cHNlOiBj (more content not included)... Normal [facility] Auto Diffon 08-09-2022 Basophils/100 WBC (Bld) 0.5 % Normal 0.0-2.0 [facility] Comment on above: Order Comment: Order Added by Discern Expert. Performed By: #### 2 875284, 5146264, 64210321, 8806250, 11443823, 32005337, 48186116 ####[address] [place] [address] Basophils/Leukocytes Auto (Bld) [Pure # fraction] 0.1 E9/L Normal 0.0-0.2 [facility] Comment on above: Order Comment: Order Added by Discern Expert. Performed By: #### 2 506356, 9051751, 46359496, 7415563, 99886108, 65270765, 00463073 ####[facility] [address] [place] [address] Eosinophils/100 WBC (Bld) 2.7 % Normal 0.0-8.0 [facility] Comment on above: Order Comment: Order Added by Discern Expert. Performed By: #### 2 041065, 9597700, 93318735, 1154399, 27355704, 92787751, 27133393 ####[address] [place] [address] Eosinophils/Leukocytes Auto (Bld) [Pure # fraction] 0.4 E9/L Normal 0.0-0.5 [facility] Comment on above: Order Comment: Order Added by Discern Expert. Performed By: #### 2 573215, 2423475, 50830111, 2040968, 82760295, 97734061, 19772295 ####[address] [address] Lymphocytes/100 WBC (Bld) 12.8 % Low 14.0-50.0 [facility] Comment on above: Order Comment: Order Added by Discern Expert. Performed By: #### 2 988357, 2501695, 75415550, 3575032, 60407302, 60348121, 27319792 ####[address] [address] Lymphocytes/Leukocytes Auto (Bld) [Pure # fraction] 2.1 E9/L Normal 1.0-4.0 [facility] Comment on above: Order Comment: Order Added by Discern Expert. Performed By: #### 2 513478, 8461432, 59106614, 6922473, 77379454, 46769342, 04895769 ####[address] [address] Monocytes/100 WBC (Bld) 6.4 % Normal 4.0-14.0 [facility] Comment on above: Order Comment: Order Added by Discern Expert. Performed By: #### 2 307609, 4386550, 30206111, 8837446, 56568653, 53585889, 98398748 ####[address] [address] Monocytes/Leukocytes Auto (Bld) [Pure # fraction] 1.0 E9/L Normal 0.2-1.0 [facility] Comment on above: Order Comment: Order Added by Discern Expert. Performed By: #### 2 425805, 4647060, 62570774, 5358280, 07027629, 11398552, 68384076 ####[facility] [address] [place] [address] Neutrophils/100 WBC (Bld) 77.6 % High 36.0-75.0 [facility] Comment on above: Order Comment: Order Added by Discern Expert. Performed By: #### 2 967784, 0443394, 98379637, 2139926, 69249910, 20953960, 24031164 ####[facility] [address] [place] [address] Neutrophils/Leukocytes Auto (Bld) [Pure # fraction] 12.6 E9/L High 2.0-7.5 [facility] Comment on above: Order Comment: Order Added by Discern Expert. Performed By: #### 2 874587, 3363174, 57562018, 5243119, 76829021, 97547013, 16750162 ####[facility] [address] [place] [address] BMPon 08-09-2022 Creatinine [Mass/Vol] 1.1 mg/dL Normal 0.5-1.3 [facility] Comment on above: Performed By: #### 2 613552, 0144260, 49320113, 8383221, 42427276, 09632180, 26577188 ####[facility] [address] [place] [address] Urea nitrogen [Mass/Vol] 18 mg/dL Normal 5-21 [facility] Comment on above: Performed By: #### 2 368511, 8811748, 81754366, 7543902, 44471236, 93400182, 19227914 ####[facility] [address] [place] [address] Urea nitrogen/Creatinine [Mass ratio] 16 No Units Normal 10-20 [facility] Comment on above: Performed By: #### 2 473222, 9325865, 25803117, 6138913, 79704588, 79695374, 66973843 ####[facility] [address] [place] [address] Anion gap [Moles/Vol] 13 mmol/L Normal 6-16 [facility] Comment on above: Performed By: #### 2 553577, 8479954, 52544705, 2746788, 60923013, 93760461, 58293041 ####[facility] [address] [place] [address] Calcium [Mass/Vol] 8.8 mg/dL Low 8.9-11.1 [facility] Comment on above: Performed By: #### 2 819095, 4962223, 62919386, 6718701, 04742178, 64103797, 77671509 ####[facility] [address] [place] [address] Chloride [Moles/Vol] 101 mmol/L Normal 101-111 [facility] Comment on above: Performed By: #### 2 396472, 9655872, 26766508, 6688056, 37014421, 45526738, 91531606 ####[facility] [address] [place] [address] CO2 [Moles/Vol] 27 mmol/L Normal 21-31 [facility] Comment on above: Performed By: #### 2 149673, 3502070, 71953559, 2201308, 21358421, 58507566, 30904084 ####[facility] [address] [place] [address] Glucose [Mass/Vol] 121 mg/dL Normal 55-199 [facility] Comment on above: Result Comment: If t his glucose result represents a fasting glucose, interpretation should refer to the following reference range: 55-99 mg/dL Performed By: #### 2 551334, 7539318, 68281042, 5578895, 43580743, 23082703, 25601939 ####[facility] [address] [place] [address] Potassium [Moles/Vol] 3.9 mmol/L Normal 3.5-5.3 [facility] Comment on above: Performed By: #### 2 339032, 7198184, 78664417, 1136478, 09493542, 11833637, 51749862 ####[facility] [address] [place] [address] Sodium [Moles/Vol] 137 mmol/L Normal 135-145 [facility] Comment on above: Performed By: #### 2 658743, 0319219, 06919345, 8593478, 32901284, 28968843, 35519882 ####[facility] [address] [place] [address] BNPon 08-09-2022 Int Ctr BNP Pass Normal [facility] Comment on above: Performed By: #### 2 021670, 9979902, 84336623, 1734914, 81434140, 78501159, 78800470 ####[address] [place] [address] Natriuretic peptide B (Bld) [Mass/Vol] 19 pg/mL Normal 5-80 [facility] Comment on above: Performed By: #### 2 104217, 7569822, 48210284, 4001482, 64574162, 83259604, 74089635 ####[facility] [address] [place] [address] Blood Gas Art, with Lytes, G alex, [place] 08-09-2022 a/A Ratio Art 75.90 % Normal >=0.80 [facility] Comment on above: Performed By: #### 4 [id number] ####[facility] [address] [place] [address] AaDO2 Art 21.9 mmHg High 5.0-15.0 [facility] Comment on above: Performed By: #### 4 [id number] ####[facility] [address] [place] [address] Allens Test Not Applicable Normal [facility] Comment on above: Performed By: #### 4 [id number] ####[facility] [address] [place] [address] Base Excess Arterial 3.1 mmol/L Normal >=2.8 [facility] Comment on above: Performed By: #### 4 [id number] ####[facility] [address] [place] [address] cCa2+ Art 4.86 mg/dL Normal 4.40-5.30 [facility] Comment on above: Performed By: #### 4 [id number] ####[facility] [address] [place] [address] cCl- Art 105.0 mmol/L Normal 101.0-111.0 [facility] Comment on above: Performed By: #### 4 [id number] ####[address] [address] cGlu Art 117 mg/dL High 55-99 [facility] Comment on above: Performed By: #### 4 [id number] ####[address] [address] cK+ Art 4.0 mmol/L Normal 3.5-5.3 [facility] Comment on above: Performed By: #### 4 [id number] ####[address] [address] cLac Art 1.4 mmol/L Normal .5-2.2 [facility] Comment on above: Performed By: #### 4 [id number] ####[address] [address] special forces engineer sergeant+ Art 142.0 mmol/L Normal 135.0-145.0 [facility] Comment on above: Performed By: #### 4 [id number] ####[address] [address] Drawn by [employer] Invalid Interpretation Code [facility] Comment on above: Performed By: #### 4 [id number] ####[address] [address] FCOHb Art 1.0 % Low 1.5-4.9 [facility] Comment on above: Result Comment: Refe rence range Nonsmoker <1.5% Smoker <5.0% Heavy Smoker <9.0% Performed By: #### 4 [id number] ####[address] [place] [address] FIO2 BG 21 Invalid Interpretation Code [facility] Comment on above: Performed By: #### 4 [id number] ####[address] [address] FMetHb Art 0.5 % Normal 0.0-1.9 [facility] Comment on above: Performed By: #### 4 [id number] ####[address] [address] FO2Hb Art 92.6 % Normal 92.0-100.0 [facility] Comment on above: Performed By: #### 4 [id number] ####[address] [address] HCO3 (Bld) [Moles/Vol] 27.1 mmol/L High 22.0-26.0 [facility] Comment on above: Performed By: #### 4 [id number] ####[address] [address] Hemoglobin (Bld) [Mass/Vol] 12.5 g/dL Normal 12.0-16.0 [facility] Comment on above: Performed By: #### 4 [id number] ####[address] [address] Oxygen saturation in Blood 94.1 % Low 95.0-100.0 [facility] Comment on above: Performed By: #### 4 [id number] ####[address] [address] P CO2 Arterial 48.9 mmHg High 35.0-45.0 [facility] Comment on above: Performed By: #### 4 [id number] ####[address] [address] P O2 Arterial 68.8 mmHg Low 80.0-100.0 [facility] Comment on above: Performed By: #### 4 [id number] ####[facility] [address] [place] [address] pH Arterial 7.383 Normal 7.350-7.450 [facility] Comment on above: Performed By: #### 4 [id number] ####[facility] [id number] Sample Site R Brachial Normal [facility] Comment on above: Performed By: #### 4 [id number] ####[facility] [address] [place] [id number] Sample Type Arterial Draw Normal [facility] Comment on above: Performed By: #### 4 [id number] ####[facility] [address] [place] [address] CBC w/ Auto Diffon 3 Erythrocyte distribution width (RBC) [Ratio] 15.4 % High 10.9-14.2 [facility] Comment on above: Performed By: #### 2 258725, 4748242, 84209369, 8547602, 78111068, 80369813, 60239154 ####[facility] [address] [place] [address] Hematocrit (Bld) [Volume fraction] 36.9 % Normal 34.0-46.0 [facility] Comment on above: Performed By: #### 2 800115, 8759561, 83244767, 2173364, 89300549, 83417782, 74828760 ####[facility] [address] [place] [address] Hemoglobin (Bld) [Mass/Vol] 11.8 g/dL Low 12.0-16.0 [facility] Comment on above: Performed By: #### 2 110200, 3160553, 57996591, 3062133, 71174463, 08135828, 15646422 ####[facility] [address] [place] [address] MCH (RBC) [Entitic mass] 28.0 pg Normal 27.0-34.0 [facility] Comment on above: Performed By: #### 2 003193, 6657520, 88958857, 9023801, 74986978, 30851280, 62555430 ####[facility] [address] [place] [address] MCHC (RBC) [Mass/Vol] 32.0 g/dL Normal 31.4-36.0 [facility] Comment on above: Performed By: #### 2 561786, 8429849, 10749849, 4369471, 98059764, 25147888, 32611560 ####[address] [place] [address] MCV (RBC) [Entitic vol] 87.6 fL Normal 80.0-100.0 [facility] Comment on above: Performed By: #### 2 981836, 1853747, 01391032, 3367547, 17791547, 63802410, 74677361 ####[facility] [address] [place] [address] Platelet mean volume (Bld) [Entitic vol] 8.4 fL Normal 6.4-10.8 [facility] Comment on above: Performed By: #### 2 078209, 8052233, 78227249, 5663916, 26119711, 56155002, 88396146 ####[address] [address] Platelets (Bld) [#/Vol] 238.0 E9/L Normal 150.0-500.0 [facility] Comment on above: Performed By: #### 2 542440, 0758579, 50523259, 5735068, 54131852, 31668155, 54042930 ####[facility] [address] [place] [address] RBC (Bld) [#/Vol] 4.2 E12/L Low 4.3-5.9 [facility] Comment on above: Performed By: #### 2 874405, 0116614, 98064396, 1890958, 43631766, 92881228, 57904331 ####[facility] [address] [place] [address] WBC corrected for nucl RBC Auto (Bld) [#/Vol] 16.3 E9/L High 4.0-11.0 [facility] Comment on above: Result Comment: Slid e reviewed by LW. Performed By: #### 2 [id number], [id number], [id number], [id number], [id number], [id number], [id number] ####P[facility] [address] [place] [address] CHEMISTRYOrdered By: SYSTEM SYSTEM on 08-09-2022 Troponin I.cardiac [Mass/Vol] 7.00 pg/mL Low 10.10 - 27.10 pg/mL FT Remisol Anion gap [Moles/Vol] 13 mmol/L Normal 6 - 16 mEq/L [facility] Remisol Calcium [Mass/Vol] 8.8 mg/dL Low 8.9 [...] 50 mL/min/1.73 m2 Low >=59mL/min/1 .73 m2 [facility] Chem S Glucose [Mass/Vol] 121 mg/dL Normal 55 - 199 mg/dL FT Remisol Potassium [Moles/Vol] 3.9 mmol/L Normal 3.5 - 5.3 mmol/L FT Remisol Sodium [Moles/Vol] 137 mmol/L Normal 135 - 145 mmol/L [facility] Remisol Troponin I.cardiac [Mass/Vol] 4.00 pg/mL Low 10.10 - 27.10 pg/mL [facility] Remisol Urea nitrogen [Mass/Vol] 18 mg/dL Normal 5 - 21 mg/dL [facility] Remisol Urea nitrogen/Creatinine [Mass ratio] 16 mg/mg Normal 10 - 20 [facility] Remisol CHEMISTRYOrdered By: Evelyn Mercado tter on 08-09-2022 Natriuretic peptide B (Bld) [Mass/Vol] 19 pg/mL Normal 5 - 80 pg/mL [facility] HemeManSS COAGULATIONOrdered By: Sagar Castorena on 08-09-2022 aPTT Coag (PPP) [Time] 31.4 s Normal 25.1 - 36.5 second(s) [facility] Auto Coag INR Coag (PPP) [Relative time] 0.9 {INR} Invalid Interpretation Code [facility] Auto Coag PT Coag (PPP) [Time] 10.3 s Normal 9.4 - 1 2.5 second(s) [facility] Auto Coag CTA Cheston 08-09-2022 CTA Chest [...] 370 Contrast amount in ml's: 73 [facility] Discharge Instructionson Discharge Instructions [id number] 1.00CD:127 [facility] ED Clinical Summaryon 2022 ED Clinical Summary [place] [id number] ED Clinical Summary Person Information Name: VIVIAN VANN Vika/[facility] Age: 62 Years : 1960 Sex: Female Language: Qatari PCP: Екатерина Robert MD Marital Status: Visit [...] 08/09/2022 18:01:49 08/09/2022 18:01:49 08/09/2022 18:01:49 AD[address]ESS: [address] [id number] PHYS DOC NOTES: MEDICAL INFORMATION: Prescriptions Given: [facility], [address] [place], [place] [id number], [phone] brompheniramine/dextr omethorphan/PSE (Bromfed DM oral syrup) 5 [...] Follow up: With: Address: When: Екатерина Robert [address] [place] [address], [facility] [place] [id number] Business (1) In 3 days 08/12/2022 Comments: Call the office of your primary care doctor to arrange for follow-up within the above-stated timeframe. Follow-up with your primary care doctor about this ED visit. You should review your labs, imaging, and diagnoses from this ED visit with your primary care physician. If y (more content not included)... [facility] ED Note-Physicianon 08-10-19 ED Note-Physician [...] that she has had [address] [facility] over the last few weeks for pneumonia/COPD exacerbation. Patient is currently on amoxicillin at home, feels that her symptoms are not improving but are in fact worsening. Patient endorses fevers and chills, myalgias. Patient reports her symptoms had not improved much on her last discharge from [place], and worsening since that time. Patient is [...] and Complexity of Problems Differential Diagnosis: [] [facility] Data External documents reviewed: [] My EKG [...] for co (more content not included)... [facility] Comment on above: Result Comment: [...] these instructions at home: Medicines ? Take uvnp-qqm-xlsxvmf and prescription medicines (inhaled or pills) only [...] you e (more content not included)... [facility] ED Patient Summaryon 023 ED Patient Summary [address] [address] Patient Discharge Instructions Person Information Name: VIVIAN VANN Age: 62 Years Arrival Date: 08/09/2022 13:09:07 Discharge Diagnosis: COPD exacerbation Primary Care Physician: Екатерина Robert MD Provider Information Primary Provider: Arsenio Martin DO Advanced Director Underwriter Sales:Clinton Lucero PA-C The exam and treatment you received in the Emergency Department were for an urgent problem and are not intended as complete care. It is important that you follow up with a doctor, nurse practitioner, or physician?s surgical supply assistant for ongoing care. If your symptoms [...] Follow-up Instructions: With: Address: When: Екатерина Robert [address] [place] [address], [facility] [place] [address] Business (1) In 3 days [...] opioids can be used to help relieve gmxscczn-jf-nnpolh pain and are often prescribed following a [...] Safely disp (more content not included)... [facility] EMS Documentationon 08-10-19 EMS Documentation Please click on link to see report [id number] CiX5+prnDQolQUJDcGRmI [id number] 9RJPlDM5TtKVYxUUi2Fd1 I JHmaAFm3DZGlDT6JH5ffJ Ou7ZfY2Bk3ZwE6tPDIskk ToRIAAM47nYyseQtNzGCs yWBLqEmp1RmHT Ak2bUHNxVVSzEICiPXCsS CAgICAgICAgICAgICAgIC AgICAgICAgICAgICAgICA gICAgICAgICAg ICAgICAgICAgICAgICAgI CAgICAgDQplbmRvYmoNCg 8UaTZcWd8QDwCoJlUNFlD wMDAwMDAwMzIg UURyPGBfwu3UZNWlHVInF DK8WIJeCRPrBTKfBXgrQV MnDSMvYOd9WTDpUMSgKT7 NCjAwMDAwMDE3 CXSbOFJeQOOksd2ZLRToZ DAwMTkzNCAwMDAwMCBuDQ pzKHXjFICkZQr9CJPjCJJ oWF6TQhQzUOKc NSIoUhYoPREzUSZznh4TS DAwMDAwMjMxNSAwMDAwMC CpHVdiBMOeEJKiUih4KBA aVYEyMO6SDmDp VRJqMTQ5XSieDALlYBZoy x5DUVNwDKVxMlcePLRyTK AwMCBuDQowMDAwMDAzMDY pPREkDZSbON6S KyIsOQPnZRI2SVYsCUByX XJcet5QFIOmKYFiOwDwPy AwMDAwMCBuDQowMDAwMDA zDOO3VTFlGQJf WQ0MFkHjRYSmHJUdCYVhY IMaTILofb5WBHPjDESxGV L3DgEdPNCyAAHyZYvfWWU oXLD2DnO2NQKv QZBpZE9MZbElIJBpWOZ2R CEyMSQiIGYfsl1WRMFeEI MuSAK8RGKcSQUsFDPuOPs gBMSsRXC8BNU8 JJAoZDZeLV6QWvZgOKWpA UY8MIsdPXBwDFWzab5DQX AwMDAwOTMwMCAwMDAwMCB uDQowMDAwMDQ5 NLvkGBAtEFUyWY3WNfLsH PTsQUN7XCSeRKCvCHVixr 7GvGLirJrass0KJHeHC0d SMEw2NCWWTOP4 SaN9K9H4GqP1ZDtDQIpkM TW6FEMHJfV2JIF+CjxGRj BuC4QATGBRZITqFunfNSB IXWR5AZsmVPd1 GCNqYN3rUk2VdyU7JRC4L BxtWBxfOu1mmSWbWgZmZX OEM8WzofEeNMdTB8VomZY gTSZlP6SZLIK9 Vs65PewxxIkFZPV4KJXVG RcmSG9GHgrNYeOtJMmlGn 05J0MXm2B9SnHmY6UPoXg EscTNNMhvP1aC dDO6p9zvrWdGsFOLzEsrQ GdJcndPalFSQUlqUHNXaE 13qthNH7GfSSy0S3QXQa1 GJBwrClOadL5V dKmsPYO1mV2xVEOVNYlES tbfYC0EOGNZMRu6FPn+Pi AgICAgICAgICAgICAgICA gICAgICAgICAg ICAgICAgICAgICAgICAgI CAgICAgICAgICAgICAgIC AgICAgICAgICAgICAgICA gICAgICAgICAg ICAgICAgICAgICAgICAgI CAgICAgICAgICAgICAgIC AgICAgICAgICAgICAgICA gICAgICAgICAg ICAgICAgICAgICAgICAgI CAgICAgICAgICAgICAgIC AgICAgICAgICAgICAgICA gICAgICAgICAg ICAgICAgICAgICAgICAgI CAgICAgICAgICAgICAgIC AgICAgICAgICAgICAgICA gICAgICAgICAg ICAgICAgICAgICAgICAgI CAgICAgICAgICAgICAgIC AgICAgICAgICAgICAgICA gICAgICAgICAg ICAgICAgICAgICAgICAgI CAgICAgICAgICAgICAgIC AgICAgICAgICAgICAgICA gICAgICAgICAg ICAgICAgICAgICAgICAgI CAgICAgICAgICAgICAgIC AgICAgICAgICAgICAgICA gICAgICAgICAg BJ0Ob5DrplW8nePgEBluF XwsDUBUOd1YCRgyQjZvZC 2fup6AGYjHB81ctPBjWGZ hIDIxIDAgUgov W5UypzJqzQolcbQzWsVsT FDSVf0ZvXGLSPpnA6H3oM rvAKInBJrpRFRZRi3UFRj pQN7xCHTiXMQz Hm3wLSddFDCvJTFaXzVgS JZJGe5PzARzXO6VDIJcfF 9nCj4+DQplbmRvYmoNCg0 KMjQgMCBvYmoN Zfk1Hu8JkRp6YYQgQ1TlR WHeRIRhn9MlFj6JHR1eiW taSMX9Cz1KHNb3Jz6+DQp gfSVoFC0NMngs G3MzUICpKZKzOIFdMKsSt XCgAIUpQLYQVIyLgXHaDQ jzpTYDMsAQZzMCEmJQzMC rUqP3VVdGB1U6 UXkOOsNxb8A0UHyFUCXXV tOkUFoRkZlP3aLTpPjWow N73MD1dOyIKGGyMUYC7KF clAkJ3XtZGu9L 0E1NQT1rd8DkLLTgOIslu mDyTlrNPd4QViAsQITuVp iVFjh4Su6Ev141JB20zmT bNDIgMCBSXQov NHVpkDBZv5vwXqWsUNS3V FBiEdftQMqmKDAaKB06YB SfDGDkXyftFcThu6OfW7X vZAz5Bv8WM1Yh UZD5JUc4Sc6MSTLoBqBzD mEsHEXVRf2GSe6ON9D8lV GwB9OiE0SFHs8NYjSuKV6 kwc2CYGigKgLk KS1hml2MUYiEA6RYw6nmL rTpBRY0ROQcTrxbQEddDr ircGLpSJ1AsYB2OWNrE84 fSMmkRBStG7Og KAj9Cp2EVJYljGSgCLMzV SfAB1tFSwybS9GlDFlSA9 kbNhI4TQJmANOePiu+Pgo +XkpgM3JyoTpc ENBoWx5fcEvjXFfcZQTtC F0tutMuyOd+Ml4Eg5YxPS XbFGc1rIFP3TNs3NKxVQZ jUTH6YCMhlbCN TPaq6IkIeKNeJgMecDDbQ 6gwFRSl70iRRAVfXtnKi6 zuBuCs8NfQUI+NY5WMarF qLxSmvt5PNAbf gbAkaBNjPR6HFvLtZL0fd s9SCSokQpWzDA3mql2WKP nYO4MZMY3Rr6WoVFtRK7J GAHZUE9oXHJYF Y3tBOOHQU4pOZJZKH84RA TODT0JGHIAsxWCWP7HrQH ITTy5SXnKjJC6hlf7EVVy mNAYgKX7cag4S HBaGO0UTLZ7Nw8DgNYhSW 2WtABSSWe5DHlAiGI0ami 5ICSevSGMlZS3ddz9PNFr VY1GZUE1Lu5Xw ZFeTJ5QEFOSUV8rUWGHNU 0bGFXGCR5nFMQSQC04RRX CGM4HHVRHtoJKFZ7XqWVU YVe2CQqCcKB9t sk4JAKrdSYAsVQ9ozm5SL YnGO8Ryo7ESb555YZ7CTk yCBD3vI661dzojir2ob0O TLUJvbGRNVAov SVMcP2BaOSVctBYfmdPkZ HplOIJyUGFyRo7HfwMxZA luZyAvSWRlbnRpdHktSAo wU8TokDybORRv GLygGPSNL2OkIM2xG60eB NLiDpRrOWZWP6C9kJQpB4 QsweHABh9OTwHgTL3ucg6 WQPvsWCSeRI7m fg9FXBcIR4Kwu5ZKg274W K4JZjbRCE4kJ140raxjrx 1qc9WFOUUjwJVMUXjnL5v UD9quuRImJI9t zwR7SFngI2OeGPUylfqsX XdaGG21nPT5YFlxQxIvfJ W0wtjeVKTdq0XpFSnbW8M wcGxlbWVudCAw Cj4+By4YAUFEa2iDRC9fm QGdWVBmnvBbxXzNZ9EPCC DZP9EdfpVCVZTxlhkpsA0 yIDMyIDAgUgov Q1GohQgdKVGkZ5nZMo3gc XB2eKXtOq5AwAOgEM3Ok6 85Jo6QSPvwYScdZLKbFG7 xONu2Jd3FBa2R IpMrFE8fky2YCYwvFwHtL I6atf1LMGgKC8PiB2NdcN M3NrFqLKB7MKRIM1RvoJa rdSedyGN0YGVk Xft5NDcAF4Ssn4KzgyGvV oDwRkX3Ghy9Ih6LdMCibi LoTFiiTd2tuSFHb7iaEh7 zTVVlMGy4FQRz GUkwKS37INixNjT7UIQeR xBiNWLfDIIoIP7fAFF8JM 9FO9TokgETuGbmHaT0JYU nFRQZD5GklhKX GK7fWD4NRivPYE9aF932k lswpe3yr9TVIHIahKTKPF iiOELutScaPF5frAXlUWk xC7OdrRXgWfYi IHruXBjTN9B1aJHeA5Fzv lCJAHOrfeqcgS7tKm5+DQ etodKlZuzXXj9UAsKlQGC nVagAUsy1Kp1M jTo3IBJgL7ZsOTArGVOab 1CvUh4TBG4klAfpRxW4Ru 4+DCdnbYCsAV6SYrjnWSR ViyWdSPx0X8gK ZlANVPlBAHojkeWhG4UpN 4i3lOeXuEjw7W2nlvUNbp geG4ayg91L7T4+wCaf8RQ VgbLJs3C4k3p7 wSZ2UXpsRVo9XtvsFd8h0 BxLoridpwBDY/uRlSXnyV sZOkRKlIRB7xauUMSsBTy it4q8wUbA18yf vzCADVywquIa+th32mn6f lXdyLui7Ww9RM1YqVWvn4 xPDcDWwkOyolu2Vfntf2C EIHjCv1AbZFHi /2MrNe621cJ0xO9ikzZRI Nh4mLNUXhMMcDwf9f7rAm EvJD8UaZ4kOrLX3m9NkdU Fe8d48wNHP9Zs RvIayawgcodHIYmkChnJi xckc/XrUC4gs6AtOUP+y+ oCtBOdGviq0AnmYd1ZycQ Q75bERUsM86/A uE0SQd3owpjxSt1QRV5wx 3RyZWFtDQplbmRvYmoNCg 1JIlOcEYMkRzzZIhf8Wy2 JMNYwBy9svYDh VtuZISmZC7LrcGAnODIJL WbQI20IWh1HBEClGO6tWY 34Zs0zyAOsGnZ4TCXxTx2 QY2ShV59siX4u QZ1BUXDizNe4fY5APw1Iv HN3qXGjYP5DqDGhNEyvCR 8Wsieag2LrYXT5 (more content not included)... [facility] FT Blood GasesOrdered By: Ra raciel Marx on 08-09-2022 a/A Ratio Art 75.90 % Normal >=0.80% [facility] Resp Auto SS AaDO2 Art 21.9 mm[Hg] High 5.0 - 15.0 mmHg [facility] Resp Auto SS Allens Test Not Applicable (08/09/22 2:03 PM) Normal [facility] Resp Auto SS Base Excess Arterial 3.1 mmol/L Normal >=2.8mmol/L FT C Resp Auto SS cCa2+ Art 4.86 mg/dL Normal 4.40 - 5.30 mg/dL [facility] Resp Auto SS cCl- Art 105.0 mmol/L Normal 101.0 - 111.0 mmol/L [facility] Resp Auto SS cGlu Art 117 mg/dL High 55 - 99 mg/dL [facility] Resp Auto SS cK+ Art 4.0 mmol/L Normal 3.5 - 5.3 mmol/L [facility] Resp Auto SS cLac Art 1.4 mmol/L Normal 0.5 - 2.2 mmol/L [facility] Resp Auto SS special forces engineer sergeant+ Art 142.0 mmol/L Normal 135.0 - 145.0 mmol/L [facility] Resp Auto SS Drawn by RLG Invalid Interpretation Code [facility] Resp Auto SS FCOHb Art 1.0 % Low 1.5 - 4.9 % [facility] Resp Auto SS FIO2 BG 21 Invalid Interpretation Code [facility] Resp Auto SS FMetHb Art 0.5 % Normal 0.0 - 1.9 % [facility] Resp Auto SS FO2Hb Art 92.6 % Normal 92.0 - 100.0 % [facility] Resp Auto SS HCO3 (Bld) [Moles/Vol] 27.1 mmol/L High 22.0 - 26.0 mmol/L [facility] Resp Auto SS Hemoglobin (Bld) [Mass/Vol] 12.5 g/dL Normal 12.0 - 16.0 gm/dL [facility] Resp Auto SS P CO2 Arterial 48.9 mm[Hg] High 35.0 - 45.0 mmHg [facility] Resp Auto SS P O2 Arterial 68.8 mm[Hg] Low 80.0 - 100.0 mmHg [facility] Resp Auto SS pH Arterial 7.383 Normal 7.350 - 7.450 [facility] Resp Auto SS Sample Site R Brachial (08/09/22 2:03 PM) Normal [facility] Resp Auto SS Sample Type Arterial Draw (08/09/22 2:03 PM) Normal [facility] Resp Auto SS HEMATOLOGYOrdered By: SYSTEM SYSTEM [...] 15.4 % High 10.9 - 14.2 % FT HemeAutoSS Hematocrit (Bld) [Volume fraction] 36.9 % Normal 34.0 - 46.0 % FT HemeAutoSS Hemoglobin (Bld) [Mass/Vol] 11.8 g/dL Low 12.0 - 16.0 gm/dL FT HemeAutoSS MCH (RBC) [Entitic mass] 28.0 pg Normal 27.0 - 34.0 pg FT HemeAutoSS MCHC (RBC) [Mass/Vol] 32.0 g/dL Normal 31.4 - 36.0 gm/dL FT HemeAutoSS MCV (RBC) [Entitic vol] 87.6 fL [...] above: Result Comment: Slid e reviewed by TITI. PT & PTTon 08-09-2022 aPTT Coag (PPP) [Time] 31.4 second(s) Normal 25.1-36.5 [facility] Comment on above: Result Comment: [...] the same coagulation reagent and instrumentation as [facility]. Currently there are no coagulation studies available worldwide for children to 14 days, and no normal ranges. Heparin therapeutic range (represented by Anti-Factor Xa activity of 0.2 - 0.4 U/mL) corresponds to PTT of 56.6 - 109.0 sec. Performed By: #### 2 [id number], 4165513, 55660005, 8772091, 29352703, 55559620, [id number] ####[facility] [place] [address] INR Coag (PPP) [Relative time] 0.9 {INR} Invalid Interpretation Code [facility] Comment on above: Result Comment: INR results are specifically intended to assess patients stabilized on long-term Anticoagulation therapy suggested INR?s ?Less Intensive Anticoagulation? 2.0 ? 3.0 Conventional Range 3.0 ? 4.5 Performed By: #### 2 911349, 4124792, 74494983, 5581228, 22510604, 79392044, [id number] ####[facility] [address] [place] [address] PT Coag (PPP) [Time] 10.3 second(s) Normal 9.4-12.5 [facility] Comment on above: Result Comment: [...] the same coagulation reagent and instrumentation as [facility]. Currently there are no coagulation studies available worldwide for children to 14 days, and no normal ranges. Performed By: #### 2 152700, 4552276, 72004737, 9381107, 25407106, 04533845, [id number] ####[facility] [address] [place] [address] Pre-Arrival Noteon 3 Pre-Arrival Note Pre-Arrival Summary Name: , Current Date: 08/09/2022 13:09:29 EDT Gender: Female Date of : Age: 62 Pre-Arrival Type: EMS ETA: 08/09/2022 13:33:00 EDT Primary Care Physician: Presenting Problem: sob Pre-Arrival User: John Martin Referring Source: Location: [place] Completion Date/Time: 08/09/2022 13:03:00 [facility] Emergency Department Pre-Hospital Report Form Vital Signs: Pre-Hospital Report: Treatment in Route: Response to Treatment: Misc. Issues: Normal [facility] Troponin 0 Hr.on 08-09-2022 Troponin I.cardiac [Mass/Vol] 4.00 pg/mL Low 10.10-27.10 [facility] Comment on above: Result Comment: The 95% CI (Confidence Interval) PPV (Positive Predictive Value) for myocardial infarction in females is 38 pg/mL, in males 51 pg/mL. The results should be used in conjunction with clinical conditions of myocardial infarction. (Access High Sensitivity Troponin I Instructions For Use, [employer], December 2017) Performed By: #### 2 [id number], 0382262, 19816239, 9267711, 79955413, 24173868, [id number] ####[facility] [address] [place] [address] Troponin 3 Hr.on 08-09-2022 Troponin I.cardiac [Mass/Vol] 7.00 pg/mL Low 10.10-27.10 [facility] Comment on above: Result Comment: The 95% CI (Confidence Interval) PPV (Positive Predictive Value) for myocardial infarction in females is 38 pg/mL, in males 51 pg/mL. The results should be used in conjunction with clinical conditions of myocardial infarction. (Access High Sensitivity Troponin I Instructions For Use, [employer], December 2017) Performed By: #### 1 [id number] ####[facility] [address] [place] [address] XR Chest Single Viewon 08-09 XR Chest [...] mGy = na DAP = na Normal [facility] eGFRon 08-09-2022 GFR/1.73 sq M.predicted among blacks MDRD (S/P/Bld) [Vol rate/Area] mL/min/{1.73_m2} Normal >=59 [facility] Comment on above: Order Comment: Order added by Discern Expert. Result Comment: eGFR is race adjusted. AA=. Performed By: #### 2 201745, 5642669, 52715099, 5684466, 32624945, 39772411, [id number] ####[facility] [address] [place] [address] GFR/1.73 sq M.predicted among non-blacks MDRD (S/P/Bld) [Vol rate/Area] 50 mL/min/1.73 m2 Low >=59 [facility] Comment on above: Order Comment: Order added by Discern Expert. Result Comment: Railway Signalling Engineer valeria kidney disease could be indicated at eGFR's of less than 60 mL/min/1.73m2. Kidney failure is indicated at less than 15 mL/min/1.73m2. Performed By: #### 2 713911, 5002295, 82183086, 1616747, 52918635, 98248123, 44254448 ####[facility] [address] [place] [address] CBC W MANUAL DIFFon 08-02-19 23 ATYPICAL LYMPH # Normal [facility] Comment on above: Performed By: #### C ROSARIO ####[facility] [address] [place], [place] [address]MsShaun Yañez ATYPICAL LYMPH % Normal [facility] Comment on above: Performed By: #### C BCMAN ####[facility] [address] [place] [id number]. Yiashley Yañez BAND # 0.9 103/ul Critically high 0.0-0.3 [facility] Comment on above: Performed By: #### C BCMAN ####[facility] [address] [place] [id number]. Yilan Yañez BAND % 5 % Normal 0-[address] [facility] Comment on above: Performed By: #### C BCMAN ####[facility] [address] [place] [id number]. Yiashley Yañez BASOM # 0.00 103/ul Normal 0.00-0.[address] [facility] Comment on above: Performed By: #### C BCMAN ####[facility] [address] [place] [address]Dr. Nahed Yañez BASOM % 0.0 % Critically low 0.2-2.0 [facility] Comment on above: Performed By: #### C BCMAN ####[facility] [address] [place] [id number]. Yiashley Yañez BLAST # Normal [facility] Comment on above: Performed By: #### C BCMAN ####[facility] [address] [place] [id number]. Nahed Yañez BLAST % Normal [facility] Comment on above: Performed By: #### C BCISAIAH ####[facility] [address] [place] [id number]. Nahed Yañez CORRECTED WBC Normal 4.0-11.0 [facility] Comment on above: Performed By: #### C BCMAN ####[facility] [address] [place] [id number]. Nahed Yañez EOS # 0.00 103/ul Normal 0.00-0.[address] [facility] Comment on above: Performed By: #### C BCISAIAH ####[facility] [address] [place] [address]Dr. Yilan Yañez EOS% 0.0 % Critically low 0.9-7.0 [facility] Comment on above: Performed By: #### Isabell PONCE ####[facility] [address] [place] [phone]. Nahed Yañez HCT 39.5 % Normal 36.0-48.0 [facility] Comment on above: Performed By: #### Isabell PONCE ####[facility] [address] [place] [phone]. Nahed Yañez HGB 13.0 g/dl Normal 12.0-16.0 [facility] Comment on above: Performed By: #### Isabell PONCE ####[facility] [address] [place] [phone]. Nahed Yañez LYMPHM # 1.72 103/ul Normal 1.20-3.80 [facility] Comment on above: Performed By: #### Isabell PONCE ####[facility] [address] [place] [id number]. Nahed Yañez LYMPHM% 10.0 % Critically low 20.5-60.0 [facility] Comment on above: Performed By: #### Isabell PONCE ####[facility] [address] [place], [place] [id number]. Nahed Yañez MCH 28.7 pg Normal 26.7-34.0 [facility] Comment on above: Performed By: #### Isabell PONCE ####[facility] [address] [place] [phone]. Nahed Yañez MCHC 32.9 g/dl Normal 29.9-35.[address] [facility] Comment on above: Performed By: #### Isabell PONCE ####[facility] [address] [place] [id number]. Nahed Yañez MCV 87.2 fL Normal 81.0-99.0 [facility] Comment on above: Performed By: #### Isabell PONCE ####[facility] [address] [place] [id number]. Nahed Yañez METAMYELOCYTE # Normal [facility] Comment on above: Performed By: #### C GILBERTOMAN ####[facility] [address] [place], [place] [address]Sk. Nahed Yañez METAMYELOCYTE % Normal [facility] Comment on above: Performed By: #### C ROSARIO ####[facility] [address] [place], [place] [address]Xa. Nahed Yañez MONOM# 0.86 103/ul Critically high 0.30-0.80 [facility] Comment on above: Performed By: #### C ROSARIO ####[facility] [address] [place] [id number]. Nahed Yañez MONOM% 5.0 % Normal 1.7-12.0 [facility] Comment on above: Performed By: #### C ROSARIO ####[facility] [address] [place] [id number]. Nahed Yañez MPV 9.8 fL Normal 9.5-13.5 [facility] Comment on above: Performed By: #### Isabell PONCE ####[facility] [address] [place] [id number]. Nahed Yañez MYELOCYTE # Normal [facility] Comment on above: Performed By: #### Isabell PONCE ####[facility] [address] [place] [id number]. Nahed Yañez MYELOCYTE % Normal [facility] Comment on above: Performed By: #### Isabell PONCE ####[facility] [address] [place] [phone]. Nahed Yañez NRBC Normal [facility] Comment on above: Performed By: #### Isabell PONCE ####[facility] [address] [place] [id number]. Nahed Yañez PLT 388 103/ul Normal 150-[address] [facility] Comment on above: Performed By: #### Isabell PONCE ####[facility] [address] [place] [id number]. Nahed Yañez RBC 4.53 106/ul Normal 4.20-5.[address] [facility] Comment on above: Performed By: #### Isabell PONCE ####[facility] [address] [place], [place] [address]Bl. Rosemarieashley Yañez RDW 14.4 % Normal 11.0-15.0 [facility] Comment on above: Performed By: #### C ROSARIO ####[facility] [address] [place], [place] [address]Tq. Rosemarieashley Otilio SEG # 13.76 103/ul Critically high 1.40-6.50 [facility] Comment on above: Performed By: #### C ROSARIO ####[facility] [address] [place], [place] [address]Yt. Nahed Yañez SEG % 80.0 % Critically high 43.0-75.0 [facility] Comment on above: Performed By: #### C ROSARIO ####[facility] [address] [place] [id number]. Nahed Yañez WBC 17.2 103/ul Critically high 4.0-11.0 [facility] Comment on above: Performed By: #### C ROSARIO ####[facility] [address] [place] [phone]. Nahed Yañez MAGNESIUMon 08-01-2022 Magnesium [Mass/Vol] 2.0 mg/dL Normal 1.8-2.4 [facility] Comment on above: Performed By: #### MG COLE, CMP ####[facility] [address] [place] [id number]. Nahed Yañez POINT OF CARE GLUCOSEon 07-13 Glucose [Mass/Vol] 267 mg/dL Critically high 74-106 [facility] Comment on above: Performed By: #### P OCGLUC ####[facility] [address] [place] [id number]. Nahed Yañez PROF 14(COMP METB)on 023 Albumin [Mass/Vol] 3.4 g/dL Normal 3.4-5.0 [facility] Comment on above: Performed By: #### T RAFITA MG, CMP ####[facility] [address] [place] [address]Dr. Nahed Yañez Albumin/Globulin [Mass ratio] 0.9 {ratio} Normal [facility] Comment on above: Performed By: #### MG COLE, CMP ####[facility] Dqyilqxiod[address] [place] [address]Dr. Nahed Yañez ALP [Catalytic activity/Vol] 100 U/L Normal 46-116 [facility] Comment on above: Performed By: #### MG COLE, CMP ####[facility] Qnnryexaww[address] [place] [address]Dr. Nahed Yañez ALT [Catalytic activity/Vol] 19 U/L Normal 14-59 [facility] Comment on above: Performed By: #### MG COLE, CMP ####[facility] Dtvnaolbtx[address] [place], [place] [address]Dr. Rosemarieashley Yañez Anion gap [Moles/Vol] 12.7 mmol/L Normal [facility] Comment on above: Performed By: #### MG COLE, CMP ####[facility] Hzerljzzov46[address] [place], [place] [address]Dr. Nahed Yañez AST [Catalytic activity/Vol] 13 U/L Critically low 15-37 [facility] Comment on above: Performed By: #### MG COLE, CMP ####[facility] Qkllboxleb7[address] [place], [place] [address]Dr. Nahed Yañez Bilirubin [Mass/Vol] 0.4 mg/dL Normal 0.2-1.0 [facility] Comment on above: Performed By: #### MG COLE, CMP ####[facility] Puhzlcmnxp[address] [place], [place] [address]Dr. Nahed Yañez Calcium [Mass/Vol] 9.5 mg/dL Normal 8.5-10.1 [facility] Comment on above: Performed By: #### MG COLE, CMP ####[facility] Btrsrivzez[address] [place], [place] [address]Dr. Nahed Yañez Chloride [Moles/Vol] 100 mmol/L Normal 98-107 [facility] Comment on above: Performed By: #### T RAFITA, MG, CMP ####[facility] Muupyonkju[address] [place] [address]Dr. Nahed Yañez CO2 [Moles/Vol] 27.1 mmol/L Normal 21.0-32.0 [facility] Comment on above: Performed By: #### Nydia ELLER MG, CMP ####[facility] Lbewslayhu4[address] [place] [address]Dr. Nahed Yañez Creatinine [Mass/Vol] 1.16 mg/dL Critically high 0.55-1.[address] [facility] Comment on above: Performed By: #### Nydia ELLER MG, CMP ####[facility] Sudgwfgsrg6[address] [place], [place] [address]Dr. Nahed Yañez EGFR-AF MONTSERRATIAN 58 mL/min/1.73m2 Critically low >=[address] [facility] Comment on above: Performed By: #### Nydia ELLER MG, CMP ####[facility] Ldjnsejbum90[address] [place], [place] [address]Dr. Nahed Yañez EGFR-NON AF MONTSERRATIAN 47 mL/min/1.73m2 Critically low >=[address] [facility] Comment on above: Performed By: #### Nydia ELLER MG, CMP ####[facility] Kfnxiohtbe1735[address] [place], [place] [address]Dr. Nahed Yañez Globulin (S) [Mass/Vol] 3.6 g/dL Normal [facility] Comment on above: Performed By: #### Nydia ELLER MG, CMP ####[facility] Oqkmstdabz[address] [place], [place] [address]Dr. Nahed Yañez Glucose [Mass/Vol] 175 mg/dL Critically high 74-106 [facility] Comment on above: Performed By: #### Nydia ELLER MG, CMP ####[facility] Qjamfogvzh4[address] [place], [place] [address]Dr. Nahed Yañez Potassium [Moles/Vol] 3.8 mmol/L Normal 3.5-5.1 [facility] Comment on above: Performed By: #### Nydia ELLER MG, CMP ####[facility] Efqzylfzwu9840[address] [place], [place] [address]Dr. Nahed Yañez Protein [Mass/Vol] 7.0 g/dL Normal 6.4-8.[address] [facility] Comment on above: Performed By: #### MG COLE, CMP ####[facility] Yajyeltzep[address] [place] [address]Dr. Nahed Yañez Sodium [Moles/Vol] 136 mmol/L Normal 136-[address] [facility] Comment on above: Performed By: #### MG COLE, CMP ####[facility] Jmavlfuimg4648[address] [place], [place] [address]Dr. Nahed Yañez Urea nitrogen [Mass/Vol] 25.0 mg/dL Critically high 7.0-18.[address] [facility] Comment on above: Performed By: #### MG COLE, CMP ####[facility] Qougozzuhr4526[address] [place], [place] [address]Dr. Nahed Yañez Urea nitrogen/Creatinine [Mass ratio] 21.6 mg/mg Normal [facility] Comment on above: Performed By: #### MG COLE, CMP ####[facility] Aeucfxxpvu9[address] [place], [place] [address]Dr. Nahed Yañez THEOPHYLLINEon 08-01-2022 THEOPHYLLINE 17.1 ug/mL Normal 10.0-20.[address] [facility] Comment on above: Performed By: #### MG COLE, CMP ####[facility] Ubtkiemwak7943[address] [place], [place] [address]Dr. Nahed Yañez CBC AUTO DIFFon 07-31-2022 BASO # 0.0 103/ul Normal 0.0-0.[address] [facility] Comment on above: Performed By: #### C BC ####[facility] Cwmjerloqz5193[address] [place], [place] [address]Dr. Nahed Yañez Basophils/100 WBC (Bld) 0.2 % Normal 0.2-2.[address] [facility] Comment on above: Performed By: #### C BC ####[facility] Bcabmqphku5279[address] [place], [place] [address]Dr. Nahed Yañez EO # 0.0 103/ul Normal 0.0-0.[address] [facility] Comment on above: Performed By: #### C BC ####[facility] Jicpusinxf[address] [place] [id number]. Nahed Yañez Eosinophils/100 WBC (Bld) 0.0 % Critically low 0.9-7.0 [facility] Comment on above: Performed By: #### C BC ####[facility] Cyvsyuesvm5837 [place] [id number]. Nahed Yañez Erythrocyte distribution width (RBC) [Ratio] 14.2 % Normal 11.0-15.0 [facility] Comment on above: Performed By: #### C BC ####[facility] Vxqigtqukd9291 [place] [id number]. Nahed Yañez Hematocrit (Bld) [Volume fraction] 36.0 % Normal 36.0-48.0 [facility] Comment on above: Performed By: #### C BC ####[facility] Nmrwdglbzz3197[address] [place], [place] [address]Dr. Nahed Yañez Hemoglobin (Bld) [Mass/Vol] 11.4 g/dL Critically low 12.0-16.0 [facility] Comment on above: Performed By: #### C BC ####[facility] Rvscgzkoka1433[address] [place], [place] [address]Dr. Nahed Yañez IG # 0.21 10e3/ul Critically high 0.00-0.03 [facility] Comment on above: Performed By: #### C BC ####[facility] Nbikyekxbd3[address] [place] [address]Dr. Nahed Yañez IG % 1.8 % Critically high 0.0-0.5 [facility] Comment on above: Performed By: #### C BC ####[facility] Gfgdxwartd7137 [place] [id number]. Nahed Yañez LYMPH # 1.3 103/ul Normal 1.2-3.[address] [facility] Comment on above: Performed By: #### C BC ####[facility] Egfhyxdixp1565 [place] [id number]. Nahed Yañez Lymphocytes/100 WBC (Bld) 11.2 % Critically low 20.5-60.0 [facility] Comment on above: Performed By: #### C BC ####[facility] Klvieojfpm17[address] [place] [address]Dr. Nahed Yañez MANUAL DIFF REQ NO Normal [facility] Comment on above: Performed By: #### C BC ####[facility] Xbeecactcs3343 [place] [id number]. Nahed Yañez MCH (RBC) [Entitic mass] 27.7 pg Normal 26.7-34.0 [facility] Comment on above: Performed By: #### C BC ####[facility] Onbbwpsrga6433 [place] [id number]. Nahed Yañez MCHC (RBC) [Mass/Vol] 31.7 g/dL Normal 29.9-35.2 [facility] Comment on above: Performed By: #### C BC ####[facility] Wdeiiazgqp8376[address] [place], [place] [address]Dr. Nahed Yañez MCV (RBC) [Entitic vol] 87.6 fL Normal 81.0-99.0 [facility] Comment on above: Performed By: #### C BC ####[facility] Zdavyrunuy13[address] [place], [place] [address]Dr. Nahed Yañez MONO # 0.8 103/ul Normal 0.3-0.8 [facility] Comment on above: Performed By: #### C BC ####[facility] Vmhoukmgtb4[address] [place] [address]Dr. Nahed Yañez Monocytes/100 WBC (Bld) 7.0 % Normal 1.7-12.0 [facility] Comment on above: Performed By: #### C BC ####[facility] Necsptnyhn[address] [place], [place] [address]DrShaun Yañez NEUT # 9.2 103/ul Critically high 1.4-6.5 [facility] Comment on above: Performed By: #### C BC ####[facility] Ofpartuasu[address] [place] [id number] Yañez Neutrophils/100 WBC (Bld) 79.8 % Critically high 43.0-75.0 [facility] Comment on above: Performed By: #### C BC ####[facility] Mljdfwvgpj23[address] [place] [address]Dr. Nahed Yañez Platelet mean volume (Bld) [Entitic vol] 9.8 fL Normal 9.5-13.5 [facility] Comment on above: Performed By: #### C BC ####[facility] Nzpyvheooh12[address] [place] [address]Dr. Nahed Yañez PLT 317 103/ul Normal 150-450 [facility] Comment on above: Performed By: #### C BC ####[facility] Bublqisrfm7139 [place] [id number]. Nahed Yañez RBC 4.11 106/ul Critically low 4.20-5.40 [facility] Comment on above: Performed By: #### C BC ####[facility] Qllswwodwj2134 [place] [address]Dr. Nahed Yañez WBC 11.5 103/ul Critically high 4.0-11.0 [facility] Comment on above: Performed By: #### C BC ####[facility] Jtjbsthrfr9956 [place] [phone]. Nahed Yañez MAGNESIUMon 07-31-2022 Magnesium [Mass/Vol] 1.8 mg/dL Normal 1.8-2.4 [facility] Comment on above: Performed By: #### M JUDY Moore, CMP ####[facility] Fwfkzxucbd2940 [place] [phone]. Nahed Yañez POINT OF CARE GLUCOSEon - Glucose [Mass/Vol] 217 mg/dL Critically high 74-106 [facility] Comment on above: Performed By: #### P OCGLUC ####[facility] Dlvkzafpbp8924 [place] [phone]. Nahed Yañez Glucose [Mass/Vol] 169 mg/dL Critically high 74-106 [facility] Comment on above: Performed By: #### P OCGLUC ####[facility] Agibshccsv9514 [place] [address]Dr. Nahed Yañez Glucose [Mass/Vol] 297 mg/dL Critically high 74-106 [facility] Comment on above: Performed By: #### P OCGLUC ####[facility] Qncckwytpi8213 [place] [address]Dr. Nahed Yañez Glucose [Mass/Vol] 233 mg/dL Critically high 74-106 [facility] Comment on above: Performed By: #### P OCGLUC ####[facility] Fuuznugyvw8[address] [place] [address]Dr. Rosemarieashley Yañez PROF 14(COMP METB)on 023 Albumin [Mass/Vol] 3.0 g/dL Critically low 3.4-5.0 [facility] Comment on above: Performed By: #### JUDY Castro, CMP ####[facility] Fjvwhpdeiz7438 [place] [address]Dr. Rosemarieashley Yañez Albumin/Globulin [Mass ratio] 0.8 {ratio} [facility] Comment on above: Performed By: #### JUDY Castro CMP ####[facility] Zmmwkemaby7358 [place] [address]Dr. Nahed Yañez ALP [Catalytic activity/Vol] 83 U/L Normal 46-116 [facility] Comment on above: Performed By: #### JUDY Castro, CMP ####[facility] Bvtfcmogcl5687 [place] [address]Dr. Nahed Yañez ALT [Catalytic activity/Vol] 21 U/L Normal 14-59 [facility] Comment on above: Performed By: #### JUDY Castro CMP ####[facility] Gjlbduyami3997 [place] [address]Dr. Nahed Yañez Anion gap [Moles/Vol] 14.8 mmol/L Normal [facility] Comment on above: Performed By: #### JUDY Castro CMP ####[facility] Orlfpvhrcq1273 [place] [address]Dr. Nahed Yañez AST [Catalytic activity/Vol] 13 U/L Critically low 15-37 [facility] Comment on above: Performed By: #### JUDY Castro, CMP ####[facility] Rjgzgzbmxe7961 [place] [address]Dr. Nahed Yañez Bilirubin [Mass/Vol] 0.2 mg/dL Normal 0.2-1.0 [facility] Comment on above: Performed By: #### JUDY Castro, CMP ####[facility] Iukacpetml2944 [place] [address]Dr. Nahed Yañez Calcium [Mass/Vol] 9.2 mg/dL Normal 8.5-10.1 [facility] Comment on above: Performed By: #### JUDY Castro, CMP ####[facility] Xtiejwurda1856[address] [place], [place] [address]Dr. Nahed Yañez Chloride [Moles/Vol] 101 mmol/L Normal 98-107 [facility] Comment on above: Performed By: #### JUDY Castro, CMP ####[facility] Lbyjzyatla67[address] [place], [place] [address]Dr. Nahed Yañez CO2 [Moles/Vol] 26.5 mmol/L Normal 21.0-32.0 [facility] Comment on above: Performed By: #### JUDY Castro, CMP ####[facility] Tvbchvmakz6738[address] [place], [place] [address]Dr. Nahed Yañez Creatinine [Mass/Vol] 1.04 mg/dL Critically high 0.55-1.02 [facility] Comment on above: Performed By: #### JUDY Castro, CMP ####[facility] Obsdmvyggj5428[address] [place], [place] [address]Dr. Nahed Yañez EGFR-AF MONTSERRATIAN >60 Normal >=60 [facility] Comment on above: Performed By: #### JUDY Castro, CMP ####[facility] Mieyaittvb9668[address] [place], [place] [address]Dr. Nahed Yañez EGFR-NON AF MONTSERRATIAN 54 mL/min/1.73m2 Critically low >=60 [facility] Comment on above: Performed By: #### JUDY Castro, CMP ####[facility] Otdfxxlnnt5448[address] [place], [place] [address]Dr. Nahed Yañez Globulin (S) [Mass/Vol] 3.6 g/dL Normal [facility] Comment on above: Performed By: #### JUDY Castro CMP ####[facility] Rxqdjtndqj3440 [place] [address]Dr. Rosemarieashley Yañez Glucose [Mass/Vol] 171 mg/dL Critically high 74-106 [facility] Comment on above: Performed By: #### JUDY Castro CMP ####[facility] Wjvldoqxnl8939[address] [place], [place] [address]Dr. Nahed Yañez Potassium [Moles/Vol] 3.3 mmol/L Critically low 3.5-5.1 [facility] Comment on above: Performed By: #### JUDY Castro CMP ####[facility] Clnxhihbxk794[address] [place], [place] [address]Dr. Nahed Yañez Protein [Mass/Vol] 6.6 g/dL Normal 6.4-8.2 [facility] Comment on above: Performed By: #### JUDY Castro CMP ####[facility] Mqjyosqkms5[address] [place], [place] [address]Dr. Nahed Yañez Sodium [Moles/Vol] 139 mmol/L Normal 136-145 [facility] Comment on above: Performed By: #### JUDY Castro, CMP ####[facility] Dkalfxbttz4939[address] [place], [place] [address]Dr. Nahed Yañez Urea nitrogen [Mass/Vol] 23.0 mg/dL Critically high 7.0-18.0 [facility] Comment on above: Performed By: #### JUDY Castro CMP ####[facility] Yjtdcsymzj50[address] [place], [place] [address]Dr. Nahed Yañez Urea nitrogen/Creatinine [Mass ratio] 22.1 mg/mg Normal [facility] Comment on above: Performed By: #### JUDY Castro CMP ####[facility] Mgokslwhpm184[address] [place], [place] [address]Dr. Nahed Yañez THEOPHYLLINEon 07-31-2022 THEOPHYLLINE 14.2 ug/mL Normal 10.0-20.0 [facility] Comment on above: Performed By: #### M Teresa, JUDY, CMP ####[facility] Sovuufhjau0816 [place] [phone]. Nahed Yañez BLOOD CULTURE ID PANELon A. baumannii Not detected Normal NOT DETECTED [facility] Comment on above: Performed By: #### B CID2 ####[facility] Gfjbreovqr2719 [place] [phone]. Yiashley Yañez Bacteriodes fragilis Not detected Normal NOT DETECTED [facility] Comment on above: Performed By: #### B CID2 ####[facility] Auumocmdsm2596 [place] [address]Dr. Nahed Yañez BCID CONTROLS PASSED Normal [facility] Comment on above: Performed By: #### B CID2 ####[facility] Sngnzycxln7266 [place] [address]Dr. Nahed Yañez BCIDBTHD BLOOD CULTURE BOTTLE INFORMATION Normal [facility] Comment on above: Performed By: #### B CID2 ####[facility] Reqmatlrwm9228 [place] [phone]. Yiashley Yañez BCIDHD1 ANTIMICROBIAL RESISTANCE GENES Normal [facility] Comment on above: Performed By: #### B CID2 ####[facility] Qikxyckwha9089 [place] [address]Dr. Yiashley Yañez BCIDHD2 SEE BELOW Normal [facility] Comment on above: Result Comment: Note : Antimicrobial resitance can occur via multiple mechanisms. A Not Detected result for the [employer] antomicrobial resistance gene assays does not indicate antimicrobial susceptibility. Subculturing is required for species identification and susceptibility testing of isolates. Performed By: #### B CID2 ####[facility] Ekvcpssewq4730 [place] [address]Dr. Nahed Yañez BCIDHD3 Positive Normal [facility] Comment on above: Performed By: #### B CID2 ####[facility] Ylqprzmjyd0861 [place] [phone]. Yiashley Yañez BCIDHD4 Negative Normal [facility] Comment on above: Performed By: #### B CID2 ####[facility] Enqaymvjiv8597 [place] [phone]. Nahed Yañez BCIDHD5 YEAST Normal [facility] Comment on above: Performed By: #### B CID2 ####[facility] Cbsiegrmjg4988 [place] [address]Dr. Yilan Yañez Bottle Set: Set [address] Normal [address] [facility] Comment on above: Performed By: #### B CID2 ####[facility] Gagrtchzsa9570 [place] [address]Dr. Nahed Yañez Bottle: Pediatric Normal [facility] Comment on above: Performed By: #### B CID2 ####[facility] Evswjwhkli8923 [place] [address]Dr. Nahed Yañez C. neoformans/gattii Not detected Normal NOT DETECTED [facility] Comment on above: Performed By: #### B CID2 ####[facility] Zxqohracfa7[address] [place], [place] [address]Dr. Nahed Yañez Sil albicans Not detected Normal NOT DETECTED [facility] Comment on above: Performed By: #### B CID2 ####[facility] Gbwfmhiawy4786[address] [place], [place] [address]Dr. Yiashley Yañez Sil auris Not detected Normal NOT DETECTED [facility] Comment on above: Performed By: #### B CID2 ####[facility] Pnjrknwbwx18[address] [place], [place] [address]Dr. Yiashley Yañez Sil glabrata Not detected Normal NOT DETECTED [facility] Comment on above: Performed By: #### B CID2 ####[facility] Dapzpmxipz7445 [place] [address]Dr. Yiashley Yañez Sil Krusei Not detected Normal NOT DETECTED [facility] Comment on above: Performed By: #### B CID2 ####[facility] Brftblciew1216 [place] [address]Dr. Yiashley Yañez Sil Parapsilosis Not detected Normal NOT DETECTED [facility] Comment on above: Performed By: #### B CID2 ####[facility] Acahvllrlp2270 [place] [address]Dr. Yiashley Yañez Sil Tropicalis Not detected Normal NOT DETECTED [facility] Comment on above: Performed By: #### B CID2 ####[facility] Njqnvwmtqf0150[address] [place], [place] [address]Dr. Nahed Yañez CTX-M Resistant Gene Not Applicable Normal NOT DETECTE D [facility] Comment on above: Performed By: #### B CID2 ####[facility] Gokublcpqo4916[address] [place], [place] [address]Dr. Nahed Yañez E. Cloacae complex Not detected Normal NOT DETECTED [facility] Comment on above: Performed By: #### B CID2 ####[facility] Nqgegulvbz7032[address] [place], [place] [address]Dr. Nahed Yañez E. faecalis Not detected Normal NOT DETECTED [facility] Comment on above: Performed By: #### B CID2 ####[facility] Zlllohzcfi8099[address] [place], [place] [address]Dr. Nahed Yañez E. faecium Not detected Normal NOT DETECTED [facility] Comment on above: Performed By: #### B CID2 ####[facility] Lbkgfjukht8728[address] [place], [place] [address]Dr. Nahed Yañez Enterobacteriaceae Not detected Normal NOT DETECTED [facility] Comment on above: Performed By: #### B CID2 ####[facility] Cfvbimflam573[address] [place], [place] [address]Dr. Nahed Yañez Escherichia coli Not detected Normal NOT DETECTED [facility] Comment on above: Performed By: #### B CID2 ####[facility] Mvsmlchqjj3767[address] [place], [place] [address]Dr. Nahed Yañez H. influenzae Not detected Normal NOT DETECTED [facility] Comment on above: Performed By: #### B CID2 ####[facility] Ejezrsssaa794[address] [place], [place] [address]Dr. Nahed Yañez IMP Resistant Gene Not Applicable Normal NOT DETECTED [facility] Comment on above: Performed By: #### B CID2 ####[facility] Gtoigwhxob799[address] [place], [place] [address]Dr. Nahed Yañez K. oxytoca Not detected Normal NOT DETECTED [facility] Comment on above: Performed By: #### B CID2 ####[facility] Kqdyijjaza5414 [place] [address]Dr. Nahed Yañez K. pneumoniae Not detected Normal NOT DETECTED [facility] Comment on above: Performed By: #### B CID2 ####[facility] Itwpbonnxw2415[address] [place], [place] [address]Dr. Rosemarieashley Yañez Klebsiella aerogenes Not detected Normal NOT DETECTED [facility] Comment on above: Performed By: #### B CID2 ####[facility] Qvvmnrkbmm520240 [address] [place], [place] [address]Dr. Nahed Yañez KPC Resistant Gene Not detected Normal NOT DETECTED [facility] Comment on above: Performed By: #### B CID2 ####[facility] Meopcvfzdl410[address] [place], [place] [address]Dr. Nahed Yañez List. monocytogenes Not detected Normal NOT DETECTED [facility] Comment on above: Performed By: #### B CID2 ####[facility] Icpdhljckp9527[address] [place], [place] [address]Dr. Nahed Yañez Mcr-1 Resistant Gene Not Applicable Normal NOT DETECTE D [facility] Comment on above: Performed By: #### B CID2 ####[facility] Mcuoxqeqoo6146[address] [place], [place] [address]Dr. Rosemarielan Otilio mecA/C Not Applicable Normal NOT DETECTED [facility] Comment on above: Performed By: #### B CID2 ####[facility] Jhthrhiiyz645[address] [place], [place] [address]Dr. Nahed Yañez mecA/C MREJ Not Applicable Normal NOT DETECTED [facility] Comment on above: Performed By: #### B CID2 ####[facility] Gsmkwqhwsh958[address] [place], [place] [address]Dr. Nahed Yañez N. meningitidis Not detected Normal NOT DETECTED [facility] Comment on above: Performed By: #### B CID2 ####[facility] Jclktaoegs246[address] [place], [place] [address]Dr. Nahed Yañez NDM Resistant Gene Not Applicable Normal NOT DETECTED [facility] Comment on above: Performed By: #### B CID2 ####[facility] Tmkjkqmmvb7104[address] [place], [place] [address]Dr. Rosemarieashley Yañez Oxa-48-like Not Applicable Normal NOT DETECTED [facility] Comment on above: Performed By: #### B CID2 ####[facility] Axurmbjvtl50[address] [place], [place] [address]Dr. Nahed Yañez Proteus Not detected Normal NOT DETECTED [facility] Comment on above: Performed By: #### B CID2 ####[facility] Iwmlflzqfz[address] [place], [place] [address]Dr. Nahed Yañez Pseud. aeruginosa Not detected Normal NOT DETECTED [facility] Comment on above: Performed By: #### B CID2 ####[facility] Wdladnhpbt295[address] [place], [place] [address]Dr. Nahed Yañez S. maltophilia Not detected Normal NOT DETECTED [facility] Comment on above: Performed By: #### B CID2 ####[facility] Vsjdqmdndt4069[address] [place], [place] [address]Dr. Nahed Yañez Salmonella Not detected Normal NOT DETECTED [facility] Comment on above: Performed By: #### B CID2 ####[facility] Dyiuxcopnw994040 [address] [place], [place] [address]Dr. Nahed Yañez Seratia marcescens Not detected Normal NOT DETECTED [facility] Comment on above: Performed By: #### B CID2 ####[facility] Uifebpoadk026[address] [place], [place] [address]Dr. Nahed Yañez Site: R AC Normal [facility] Comment on above: Performed By: #### B CID2 ####[facility] Ubimkidbyg1078[address] [place], [place] [address]Dr. Nahed Yañez Staph. aureus Not detected Normal NOT DETECTED [facility] Comment on above: Performed By: #### B CID2 ####[facility] Zitxrvfvir1029[address] [place], [place] [address]Dr. Nahed Yañez Staph. epidermidis Not detected Normal NOT DETECTED [facility] Comment on above: Performed By: #### B CID2 ####[facility] Bgsdbfsgno9140[address] [place], [place] [address]Dr. Nahed Yañez Staph. lugdunensis Not detected Normal NOT DETECTED [facility] Comment on above: Performed By: #### B CID2 ####[facility] Lbcizghnrj4150[address] [place], [place] [address]Dr. Nahed Yañez Staphylococcus Detected Critically abnormal NOT DETECTED [facility] Comment on above: Performed By: #### B CID2 ####[facility] Lszyzhpctm769[address] [place], [place] [address]Dr. Nahed Yañez Strep. agalactiae Not detected Normal NOT DETECTED [facility] Comment on above: Performed By: #### B CID2 ####[facility] Fqxpydpqmk7869[address] [place], [place] [address]Dr. Nahed Yañez Strep. pneumoniae Not detected Normal NOT DETECTED [facility] Comment on above: Performed By: #### B CID2 ####[facility] Rsiidvzakl1253[address] [place], [place] [address]Dr. Nahed Yañez Strep. pyogenes Not detected Normal NOT DETECTED [facility] Comment on above: Performed By: #### B CID2 ####[facility] Sapnzmdeat1185[address] [place], [place] [address]Dr. Nahed Yañez Streptococcus Not detected Normal NOT DETECTED [facility] Comment on above: Performed By: #### B CID2 ####[facility] Liezjxjbij003[address] [place], [place] [address]Dr. Nahed Yañez Tucker/B Resist. Gene Not detected Normal NOT DETECTED [facility] Comment on above: Performed By: #### B CID2 ####[facility] Dnlefnkkzl6604[address] [place], [place] [address]Dr. Nahed Yañez VIM Resistant Gene Not Applicable Normal NOT DETECTED [facility] Comment on above: Performed By: #### B CID2 ####[facility] Splckipkzy9414[address] [place], [place] [address]Dr. Nahed Yañez CARDIAC FRANCISCO 3-6on 3 CK [Catalytic activity/Vol] 25 U/L Critically low 26-[address] [facility] Comment on above: Performed By: #### C MREP ####[facility] Ngltmonntb84[address] [place] [address]Dr. Nahed Yañez CK.MB [Mass/Vol] ng/mL Normal <=3.60 [facility] Comment on above: Performed By: #### C MREP ####[facility] Hctrbbfqpx9234 [place] [address]Dr. Nahed Yañez HSTROP 35.8 pg/mL Normal 4.0-51.[address] [facility] Comment on above: Result Comment: CUT- OFF POINTS HAVE BEEN ESTABLISHED BASED ON THE FOURTH UNIVERSAL DEFINITIONS OF MYOCARDIALINFARCTION. THE UPPER REFERENCE LIMIT (URL) OF TROPONIN, DEFINED THE 99TH PERCENTILE OFcTnI DISTRIBUTION IN A REFERENCE POPULATION, HAS BEEN CONFIRMED THE DECISION THRESHOLDFOR [place] DIAGNOSIS. Performed By: #### C MREP ####[facility] Fxtrxyiijv9824[address] [place], [place] [address]Dr. Nahed Yañez CK [Catalytic activity/Vol] 28 U/L Normal 26-[address] [facility] Comment on above: Performed By: #### C MREP ####[facility] Kkpjprryes5409[address] [place], [place] [address]Dr. Nahed Yañez CK.MB [Mass/Vol] ng/mL Normal <=3.60 [facility] Comment on above: Performed By: #### C MREP ####[facility] Nenaxewayv7934[address] [place], [place] [address]Dr. Nahed Yañez HSTROP 36.8 pg/mL Normal 4.0-51.[address] [facility] Comment on above: Result Comment: CUT- OFF POINTS HAVE BEEN ESTABLISHED BASED ON THE FOURTH UNIVERSAL DEFINITIONS OF MYOCARDIALINFARCTION. THE UPPER REFERENCE LIMIT (URL) OF TROPONIN, DEFINED THE 99TH PERCENTILE OFcTnI DISTRIBUTION IN A REFERENCE POPULATION, HAS BEEN CONFIRMED THE DECISION THRESHOLDFOR [place] DIAGNOSIS. Performed By: #### C MREP ####[facility] Xkumkznbry0170[address] [place], [place] [address]Dr. Nahed Yañez CBC AUTO DIFFon 07-30-2022 BASO # 0.0 103/ul Normal 0.0-0.[address] [facility] Comment on above: Performed By: #### C BC ####[facility] Qryqynhchi[address] [place] [address]Ne. Nahed Yañez Basophils/100 WBC (Bld) 0.1 % Critically low 0.2-2.[address] [facility] Comment on above: Performed By: #### C BC ####[facility] Rbcwoecdyy01[address] [place] [address]Dr. Nahed Yañez EO # 0.0 103/ul Normal 0.0-0.[address] [facility] Comment on above: Performed By: #### C BC ####[facility] Svfrgdfyip9028 [place] [address]Dr. Nahed Yañez Eosinophils/100 WBC (Bld) 0.0 % Critically low 0.9-7.[address] [facility] Comment on above: Performed By: #### C BC ####[facility] Cxyykwtazq8712[address] [place], [place] [address]Dr. Nahed Yañez Erythrocyte distribution width (RBC) [Ratio] 14.4 % Normal 11.0-15.[address] [facility] Comment on above: Performed By: #### C BC ####[facility] Naltnsayes5727[address] [place], [place] [address]Dr. Nahed Yañez Hematocrit (Bld) [Volume fraction] 37.7 % Normal 36.0-48.[address] [facility] Comment on above: Performed By: #### C BC ####[facility] Gtgqawklmx75[address] [place] [address]Dr. Nahed Yañez Hemoglobin (Bld) [Mass/Vol] 12.1 g/dL Normal 12.0-16.[address] [facility] Comment on above: Performed By: #### C BC ####[facility] Gqxxxsjjhx7910 [place] [address]Dr. Nahed Yañez IG # 0.07 10e3/ul Critically high 0.00-0.03 [facility] Comment on above: Performed By: #### C BC ####[facility] Qhaziqqcyu0583 [place] [address]Dr. Nahed Yañez IG % 0.5 % Normal 0.0-0.[address] [facility] Comment on above: Performed By: #### C BC ####[facility] Erbwaebwmz9922 [place] [id number]. Nahed Otilio LYMPH # 1.0 103/ul Critically low 1.2-3.8 [facility] Comment on above: Performed By: #### C BC ####[facility] Fzjijmcfgx9694 [place] [id number]. Nahed Yañez Lymphocytes/100 WBC (Bld) 7.6 % Critically low 20.5-60.[address] [facility] Comment on above: Performed By: #### C BC ####[facility] Paarxutxhq33[address] [place] [id number]. Rosemarieashley Yañez MANUAL DIFF REQ NO Normal The [facility] Comment on above: Performed By: #### C BC ####[facility] Irpgcevnol6235 [place] [id number]. Nahed Otilio MCH (RBC) [Entitic mass] 28.8 pg Normal 26.7-34.[address] [facility] Comment on above: Performed By: #### C BC ####[facility] Qxcjzxgxpr7356 [place] [id number]. Nahed Yañez MCHC (RBC) [Mass/Vol] 32.1 g/dL Normal 29.9-35.[address] [facility] Comment on above: Performed By: #### C BC ####[facility] Ufgudcfhst1892 [place] [id number]. Nahed Otilio MCV (RBC) [Entitic vol] 89.8 fL Normal 81.0-99.[address] [facility] Comment on above: Performed By: #### C BC ####[facility] Rgnuqfdmgm3644 [place] [id number]. Nahed Otilio MONO # 0.2 103/ul Critically low 0.3-0.8 [facility] Comment on above: Performed By: #### C BC ####[facility] Vlfiylpacg0070 [place] [id number]. Nahed Otilio Monocytes/100 WBC (Bld) 1.5 % Critically low 1.7-12.[address] [facility] Comment on above: Performed By: #### C BC ####[facility] Lfbztaqdyt6406 [place] [id number]. Nahed Yañez NEUT # 11.7 103/ul Critically high 1.4-6.5 [facility] Comment on above: Performed By: #### C BC ####[facility] Gqtwbedlgx9586 [place] [id number]. Nahed Yañez Neutrophils/100 WBC (Bld) 90.3 % Critically high 43.0-75.[address] [facility] Comment on above: Performed By: #### C BC ####[facility] Zhsppuggyp1609 [place] [phone]. Nahed Yañez Platelet mean volume (Bld) [Entitic vol] 9.9 fL Normal 9.5-13.5 [facility] Comment on above: Performed By: #### C BC ####[facility] Ojfiqtsqqe3596 [place] [id number]. Nahed Yañez PLT 319 103/ul Normal 150-[address] [facility] Comment on above: Performed By: #### C BC ####[facility] K[address]wr[address] [place], [place] [id number]. Nahed Yañez RBC 4.20 106/ul Normal 4.20-5.[address] [facility] Comment on above: Performed By: #### C BC ####[facility] Hqkucrtefs9945 [place] [id number]. Nahed Yañez WBC 13.0 103/ul Critically high 4.0-11.0 [facility] Comment on above: Performed By: #### C BC ####[facility] Ityqgavosi7624 [place] [phone]. Nahed Yañez CULTURE BLOODon 07-30-2022 Microscopic examination of blood, culture Culture Observations: NO GROWTH AT 5 DAYS. Normal [facility] Comment on above: Performed By: #### B LDCX1 ####[facility] Avryltpwwh1706 [place] [phone]. Nahed Yañez CULTURE SPUTUMon 07-30-2022 CULTURE SPUTUM Culture Observations : NORMAL RESPIRATORY MIGUEL. Normal [facility] Comment on above: Performed By: #### S PUTCX ####[facility] Ncivfrtwod4384 [place] [phone]. Nahed Yañez CULTURE URINEon 07-30-2022 CULTURE URINE Culture Observations : MODERATE GROWTH OF MIXED GENITAL MIGUEL. NO POTENTIAL PATHOGENS SEEN. Normal The [facility] Comment on above: Performed By: #### U RCX ####[facility] Pdxakcczhy8155 [place] [address]Dr. Nahed Yañez Covid-19 PCR (CVDTB)on 07-12 SARS-CoV-2 (COVID-19) RNA MIRNA+probe Ql (Unsp spec) Not detected Normal NOT DETECTED [facility] Comment on above: Result Comment: When [...] for this test is supported by the [place] of Health and Human Service's declaration that [...] be used). Performed By: #### C VDTBH ####[facility] Dfonjakqiy9242 [place] [address]Dr. Nahed Yañez ER URINE PROFILEon 3 Bilirubin Ql (U) Negative Normal NEGATIVE [facility] Comment on above: Performed By: #### E YARELIS ALCARAZ ####[facility] Enhfozcyhq3223 [place] [address]Dr. Nahed Yañez Clarity (U) CLEAR Normal CLEAR [facility] Comment on above: Performed By: #### E YARELIS ALCARAZ ####[facility] Thnbstfjtm1594[address] [place], [place] [address]Dr. Nahed Yañez Color (U) LT. YELLOW Normal YELLOW [facility] Comment on above: Performed By: #### NUNU DOVERO ####[facility] Kbsnvffkcm1226[address] [place], [place] [address]Dr. Nahed Yañez ERUAHD A micrscopic examination will be performed if indicated. Normal The [facility] Comment on above: Performed By: #### MYLA DOVEICRO ####[facility] Pqfhvwygxq5[address] [place], [place] [address]Dr. Nahed Yañez Glucose Ql (U) 500 mg/dl Abnormal NEGATIVE [facility] Comment on above: Performed By: #### MYLA DOVEICRO ####[facility] Ctdjbbbtzb686[address] [place], [place] [address]Dr. Nahed Yañez Hemoglobin Ql (U) Negative Normal NEGATIVE [facility] Comment on above: Performed By: #### MYLA DOVEICRO ####[facility] Uwxlqdcbyw2744[address] [place], [place] [address]Dr. Nahed Yañez Ketones Ql (U) Negative Normal NEGATIVE [facility] Comment on above: Performed By: #### MYLA DOVEICRO ####[facility] Rktnkxuafh0098[address] [place], [place] [address]Dr. Nahed Yañez LEUKOCYTES TRACE Abnormal NEGATIVE [facility] Comment on above: Performed By: #### Isidoro ALCARAZ UMICRO ####[facility] Qgetypyqhd599[address] [place], [place] [address]Dr. Nahed Yañez Nitrite Ql (U) Negative Normal NEGATIVE [facility] Comment on above: Performed By: #### Isidoro ALCARAZ UMICRO ####[facility] Igsrpytojz9458[address] [place], [place] [address]Dr. Nahed Yañez pH (U) 6.0 [pH] Normal 5-[address] [facility] Comment on above: Performed By: #### Isidoro ALCARAZ UMICRO ####[facility] Idsmdpqcfy1398[address] [place], [place] [address]Dr. Nahed Yañez SPEC GRAVITY >=1.030 Abnormal 1.005-<=1.02 [address] [facility] Comment on above: Performed By: #### NUNU DOVERO ####[facility] Ujcuhfdrxc889[address] [place], [place] [address]Dr. Rosemarieashley Otilio UA PROTEIN Negative Normal NEGATIVE/ TRACE [facility] Comment on above: Performed By: #### Isidoro ALCARAZ, NUNURO ####[facility] Spyhozmmon3696[address] [place], [place] [address]Dr. Nahed Yañez UR MICRO IND INDICATED Normal [facility] Comment on above: Performed By: #### Isidoro ALCARAZ, NUNURO ####[facility] Btwcnabpsl0570[address] [place], [place] [address]Dr. Nahed Yañez Urobilinogen Qn (U) 0.2 {Alem'U}/dL Normal 0.2 - 1. 0 [facility] Comment on above: Performed By: #### YARELIS DOVE ####[facility] Ofubhuetem6832[address] [place], [place] [address]Dr. Rosemarieashley Otilio INFLUENZA A AND B AGon 07-30 INFLUANEGH SEE BELOW Normal [facility] Comment on above: Result Comment: Nega tive for Flu A protein angiten. Infection due to Flu A cannot be ruled out. Flu A angiten in the sample may be below the detection limit of the test. Performed By: #### I NFLUAB ####[facility] Vuqdwfcirg1945[address] [place], [place] [address]Dr. Rosemarieashley Otilio INFLUBNEGH SEE BELOW Normal [facility] Comment on above: Result Comment: Nega tive for Flu B protein antigen. Infection due to Flu B cannot be ruled out. Flu B antigen in the sample may be below the detection limit of the test. Performed By: #### I NFLUAB ####[facility] Qgxjrqkzur5430[address] [place], [place] [address]Dr. Rosemarieashley Otilio INFLUENZA A AG Negative Normal NEGATIVE SEE COMMENT [facility] Comment on above: Performed By: #### I NFLUAB ####[facility] Zmvstzqmai7195[address] [place], [place] [address]Dr. Nahed Yañez INFLUENZA B AG Negative Normal NEGATIVE SEE COMMENT [facility] Comment on above: Performed By: #### I NFLUAB ####[facility] Xendhtsycv255[address] [place], [place] [address]Dr. Nahed Yañez LACTATE/LACTIC ACIDon 2022 Lactate [Moles/Vol] 2.5 mmol/L Critically high 0.4-2.0 [facility] Comment on above: Performed By: #### L ACT ####[facility] Qijlrouumj9660[address] [place], [place] [address]Dr. Nahed Yañez Lactate [Moles/Vol] 3.3 mmol/L Critically high 0.4-2.0 [facility] Comment on above: Performed By: #### L ACT ####[facility] Kxypbqczwx413[address] [place], [place] [address]Dr. Nahed Yañez Lactate [Moles/Vol] 2.7 mmol/L Critically high 0.4-2.0 [facility] Comment on above: Performed By: #### L ACT ####[facility] Lprrqebnoe7410[address] [place], [place] [address]Dr. Nahed Yañez Lactate [Moles/Vol] 2.8 mmol/L Critically high 0.4-2.0 [facility] Comment on above: Performed By: #### L ACT ####[facility] Qemfkhzfwh7[address] [place], [place] [address]Dr. Nahed Yañez MAGNESIUMon 07-30-2022 Magnesium [Mass/Vol] 1.9 mg/dL Normal 1.8-2.4 [facility] Comment on above: Performed By: #### M G, CMP ####[facility] Ywkdsjuppk937[address] [place], [place] [address]Dr. Nahed Yañez POINT OF CARE GLUCOSEon 07-12 Glucose [Mass/Vol] 220 mg/dL Critically high 74-106 [facility] Comment on above: Performed By: #### P OCGLUC ####[facility] Argpaorncm707[address] [place], [place] [address]Dr. Nahed Yañez Glucose [Mass/Vol] 162 mg/dL Critically high 74-106 [facility] Comment on above: Result Comment: Kaycee clemons Meter Performed By: #### P OCGLUC ####[facility] Ibzktfuiyv5761 [place] [address]Dr. Nahed Yañez PROF 14(COMP METB)on 023 Albumin [Mass/Vol] 2.9 g/dL Critically low 3.4-5.0 [facility] Comment on above: Performed By: #### Pablo Moore, CMP ####[facility] Adxngneytc8975 [place] [address]Dr. Nahed Yañez Albumin/Globulin [Mass ratio] 0.8 {ratio} Normal [facility] Comment on above: Performed By: #### Pablo G, CMP ####[facility] Simpdzncze6424 [place] [address]Dr. Nahed Yañez ALP [Catalytic activity/Vol] 94 U/L Normal 46-116 [facility] Comment on above: Performed By: #### Pablo G, CMP ####[facility] Rxmcgdlgts7260[address] [place], [place] [address]Dr. Nahed Yañez ALT [Catalytic activity/Vol] 22 U/L Normal 14-59 [facility] Comment on above: Performed By: #### Pablo G, CMP ####[facility] Bjcdvsycbm1907 [place] [address]Dr. Nahed Yañez Anion gap [Moles/Vol] 12.4 mmol/L Normal [facility] Comment on above: Performed By: #### Pablo Moore, CMP ####[facility] Patlkhicno9118 [place] [address]Dr. Nahed Yañez AST [Catalytic activity/Vol] 18 U/L Normal 15-37 [facility] Comment on above: Performed By: #### Pablo Moore, CMP ####[facility] Npdajtlqbu2637 [place] [address]Dr. Nahed Yañez Bilirubin [Mass/Vol] 0.1 mg/dL Critically low 0.2-1.0 [facility] Comment on above: Performed By: #### Pablo G, CMP ####[facility] Pnohpsoyqh8558 [place] [address]Dr. Nahed Yañez Calcium [Mass/Vol] 8.9 mg/dL Normal 8.5-10.1 [facility] Comment on above: Performed By: #### M G, CMP ####[facility] Zrwigpkqst1594[address] [place], [place] [address]Dr. Nahed Yañez Chloride [Moles/Vol] 99 mmol/L Normal 98-107 [facility] Comment on above: Performed By: #### M G, CMP ####[facility] Jyqbtjikob6863[address] [place], [place] [address]Dr. Nahed Yañez CO2 [Moles/Vol] 26.0 mmol/L Normal 21.0-32.0 [facility] Comment on above: Performed By: #### M G, CMP ####[facility] Sickfjjczq587[address] [place], [place] [address]Dr. Nahed Yañez Creatinine [Mass/Vol] 1.16 mg/dL Critically high 0.55-1.02 [facility] Comment on above: Performed By: #### Pablo Moore, CMP ####[facility] Iwxatyhczu0097[address] [place], [place] [address]Dr. Nahed Yañez EGFR-AF MONTSERRATIAN 58 mL/min/1.73m2 Critically low >=60 [facility] Comment on above: Performed By: #### Pablo Moore, CMP ####[facility] Tdmgzhgqkk4679[address] [place], [place] [address]Dr. Nahed Yañez EGFR-NON AF MONTSERRATIAN 47 mL/min/1.73m2 Critically low >=60 [facility] Comment on above: Performed By: #### Pablo Moore, CMP ####[facility] Qkfszsqmmc029[address] [place], [place] [address]Dr. Nahed Yañez Globulin (S) [Mass/Vol] 3.7 g/dL Normal [facility] Comment on above: Performed By: #### Pablo G, CMP ####[facility] Fmxdsyujhg7105[address] [place], [place] [address]Dr. Nahed Yañez Glucose [Mass/Vol] 267 mg/dL Critically high 74-106 [facility] Comment on above: Performed By: #### Pablo G, CMP ####[facility] Jofbqacyij100[address] [place], [place] [address]Dr. Nahed Yañez Potassium [Moles/Vol] 4.4 mmol/L Normal 3.5-5.1 [facility] Comment on above: Performed By: #### Pablo Moore, CMP ####[facility] Xgsdodxtxw0943[address] [place], [place] [address]Dr. Nahed Yañez Protein [Mass/Vol] 6.6 g/dL Normal 6.4-8.[address] [facility] Comment on above: Performed By: #### Pablo Moore, CMP ####[facility] Jmugoxgvwu3340[address] [place], [place] [address]Dr. Nahed Yañez Sodium [Moles/Vol] 133 mmol/L Critically low 136-145 [facility] Comment on above: Performed By: #### Pablo Moore, CMP ####[facility] Liduruegmn0898[address] [place], [place] [address]Dr. Nahed Yañez Urea nitrogen [Mass/Vol] 33.0 mg/dL Critically high 7.0-18.0 [facility] Comment on above: Performed By: #### Pablo Moore, CMP ####[facility] Soybbjjfac76[address] [place], [place] [address]Dr. Nahed Yañez Urea nitrogen/Creatinine [Mass ratio] 28.4 mg/mg Normal [facility] Comment on above: Performed By: #### Pablo Moore, CMP ####[facility] Rzdiucgtan6340[address] [place], [place] [address]Dr. Nahed Yañez SPUTUM GRAM STAINon 07-31-19 COMMENTS Normal [facility] Comment on above: Performed By: #### S PUTGS ####[facility] Nzaavwsosz60[address] [place], [place] [address]Dr. Nahed Yañez DIPHTHEROIDS Normal [facility] Comment on above: Performed By: #### S PUTGS ####[facility] Lowoudqnmy8230[address] [place], [place] [address]Dr. Nahed Yañez EPITHELIALS <25 Normal [address] [facility] Comment on above: Performed By: #### S PUTGS ####[facility] Dlafcdnblt90[address] [place], [place] [address]Dr. Nahed Yañez FUNGAL ELEMENTS Normal [facility] Comment on above: Performed By: #### S PUTGS ####[facility] Dfxinnbjll1374 [place] [address]Dr. Rosemarieashley Yañez GRAM NEG BACILLI Normal [facility] Comment on above: Performed By: #### S PUTGS ####[facility] Mbjiruugpa8783 [place] [address]Dr. Rosemarieashley Yañez GRAM NEG DIPPLOCOCCI Normal The [facility] Comment on above: Performed By: #### S PUTGS ####[facility] Ziyrfirjjj[address] [place], [place] [address]Dr. Nahed Yañez GRAM POS BACILLI FEW Normal [facility] Comment on above: Performed By: #### S PUTGS ####[facility] Ebnjoizgij[address] [place], [place] [address]Dr. Nahed Yañez GRAM POSITIVE COCCI FEW Normal [facility] Comment on above: Performed By: #### S PUTGS ####[facility] Usbtwkcgao85[address] [place], [place] [address]Dr. Nahed Yañez WBC (Bld) [#/Vol] 10*3/uL Normal The [facility] Comment on above: Performed By: #### S PUTGS ####[facility] Gngrtdrnqt[address] [place], [place] [address]Dr. Nahed Yañez URINE MICROSCOPIC ONLYon BACTERIA SMALL Abnormal NONE SEEN The [facility] Comment on above: Performed By: #### NUNU DOVERO ####[facility] Fbbucyonmn[address] [place], [place] [address]Dr. Nahed Yañez Bacteria identified Cx Nom (U) INDICATED Normal The [facility] Comment on above: Performed By: #### NUNU DOVERO ####[facility] Yejuijjuen[address] [place] [address]Dr. Nahed Yañez CAST NONE SEEN Normal NONE SEEN The [facility] Comment on above: Performed By: #### NUNU DOVERO ####[facility] Ldprumkutg3228 [place] [address]Dr. Nahed Yañez Crystals LM Nom (Urine sed) NONE SEEN Normal NONE SEEN The [facility] Comment on above: Performed By: #### NUNU DOVERO ####[facility] Tlzetekhhu0904 [place] [id number]. Nahed Yañez Epithelial cells LM Ql (Urine sed) FEW Abnormal NONE SEEN /RARE The [facility] Comment on above: Performed By: #### NUNU DOVERO ####[facility] Fbxdezvyba8834 [place] [phone]. Nahed Yañez MUCOUS TRACE Abnormal NONE SEEN The [facility] Comment on above: Performed By: #### NUNU DOVERO ####[facility] Umdvshhvnw9604 [place] [phone]. Nahed Yañez RBC 0-2 Normal 0-[address] [facility] Comment on above: Performed By: #### YARELIS DOVE ####[facility] Koxdjmvens9869 [place] [address]Dr. Nahed Yañez WBC 0-2 Abnormal NONE SEEN The [facility] Comment on above: Performed By: #### NUNU DOVERO ####[facility] Kflrptflmk7377 [place] [address]Dr. Nahed Yañez XR CHEST 1 Von 07-30-2022 XR CHEST 1 V Normal [facility] CARDIAC FRANCISCO ADMITon 023 CK [Catalytic activity/Vol] 59 U/L Normal 26-[address] [facility] Comment on above: Performed By: #### Isabell AGRAWAL BMP ####[facility] Dqabzlfpon4805 [place] [address]Dr. Nahed Yañez CK.MB [Mass/Vol] 0.59 ng/mL Normal <=3.60 [facility] Comment on above: Performed By: #### Isabell MADM, BMP ####[facility] Vludpvaktx3299 [place] [address]Dr. Nahed Yañez HSTROP 40.7 pg/mL Normal 4.0-51.[address] [facility] Comment on above: Result Comment: CUT- OFF POINTS HAVE BEEN ESTABLISHED BASED ON THE FOURTH UNIVERSAL DEFINITIONS OF MYOCARDIALINFARCTION. THE UPPER REFERENCE LIMIT (URL) OF TROPONIN, DEFINED THE 99TH PERCENTILE OFcTnI DISTRIBUTION IN A REFERENCE POPULATION, HAS BEEN CONFIRMED THE DECISION THRESHOLDFOR AK DIAGNOSIS. Performed By: #### C NGHIA, BMP ####[facility] Ffqdycqqcb8507 [place] [phone]. Nahed Yañez ANDRE 89 ng/mL Critically high 9-82 The [facility] Comment on above: Performed By: #### C NGHIA, BMP ####[facility] Hxlyyrdtuf2455 [place] [phone]. Nahed Yañez CBC AUTO DIFFon 07-29-2022 BASO # 0.0 103/ul Normal 0.0-0.1 [facility] Comment on above: Performed By: #### C BC ####[facility] Aqohrtyfut4561 [place] [address]Dr. Nahed Yañez Basophils/100 WBC (Bld) 0.1 % Critically low 0.2-2.0 [facility] Comment on above: Performed By: #### C BC ####[facility] Aatkfbmzeu3838[address] [place], [place] [address]Dr. Nahed Yañez EO # 0.0 103/ul Normal 0.0-0.7 [facility] Comment on above: Performed By: #### C BC ####[facility] Tkvibjozwg3970[address] [place], [place] [address]Dr. Nahed Yañez Eosinophils/100 WBC (Bld) 0.0 % Critically low 0.9-7.0 [facility] Comment on above: Performed By: #### C BC ####[facility] Tmlpsbllmd7032[address] [place], [place] [address]Dr. Nahed Yañez Erythrocyte distribution width (RBC) [Ratio] 14.5 % Normal 11.0-15.[address] [facility] Comment on above: Performed By: #### C BC ####[facility] Eypnogllcj17[address] [place], [place] [address]Dr. Nahed Yañez Hematocrit (Bld) [Volume fraction] 42.1 % Normal 36.0-48.0 [facility] Comment on above: Performed By: #### C BC ####[facility] Dptplcgtxk[address] [place], [place] [address]Dr. Nahed Yañez Hemoglobin (Bld) [Mass/Vol] 13.4 g/dL Normal 12.0-16.0 [facility] Comment on above: Performed By: #### C BC ####[facility] Yyufcvdsmu5035 [place] [phone] Yañez IG # 0.07 10e3/ul Critically high 0.00-0.03 [facility] Comment on above: Performed By: #### C BC ####[facility] Nmssjundhy7312 [place] [address]DrShaun Yañez IG % 0.5 % Normal 0.0-0.5 [facility] Comment on above: Performed By: #### C BC ####[facility] Nvdkmqzlss1725 [place] [address]DrShaun Yañez LYMPH # 3.2 103/ul Normal 1.2-3.8 [facility] Comment on above: Performed By: #### C BC ####[facility] Rbeeiidtxb6350 [place] [address]DrShaun Yañez Lymphocytes/100 WBC (Bld) 21.2 % Normal 20.5-60.0 [facility] Comment on above: Performed By: #### C BC ####[facility] Rtxpbxszhw6794 [place] [address]DrShaun Yañez MANUAL DIFF REQ NO Normal [facility] Comment on above: Performed By: #### C BC ####[facility] Fywwjorkoc3159 [place] [phone] Yañez MCH (RBC) [Entitic mass] 28.1 pg Normal 26.7-34.0 [facility] Comment on above: Performed By: #### C BC ####[facility] Xjgsgembgs8708 [place] [phone] Yañez MCHC (RBC) [Mass/Vol] 31.8 g/dL Normal 29.9-35.[address] [facility] Comment on above: Performed By: #### C BC ####[facility] Opjmoegggb8291 [place] [phone] Yañez MCV (RBC) [Entitic vol] 88.3 fL Normal 81.0-99.[address] [facility] Comment on above: Performed By: #### C BC ####[facility] Ycbjoqnvkv6655 [place] [phone]. Nahed Yañez MONO # 1.0 103/ul Critically high 0.3-0.8 The [facility] Comment on above: Performed By: #### C BC ####[facility] Ydsmvyowci7439 [place] [phone]. Nahed Yañez Monocytes/100 WBC (Bld) 6.3 % Normal 1.7-12.[address] [facility] Comment on above: Performed By: #### C BC ####[facility] Rdouqlgzft6649 [place] [phone]. Nahed Yañez NEUT # 11.0 103/ul Critically high 1.4-6.5 [facility] Comment on above: Performed By: #### C BC ####[facility] Kzahmmtueq1572 [place] [address]Dr. Nahed Yañez Neutrophils/100 WBC (Bld) 71.9 % Normal 43.0-75.[address] [facility] Comment on above: Performed By: #### C BC ####[facility] Rvwsrncobx3285 [place] [address]Dr. Nahed Yañez Platelet mean volume (Bld) [Entitic vol] 9.9 fL Normal 9.5-13.[address] [facility] Comment on above: Performed By: #### C BC ####[facility] Ohokdhyzhu7042 [place] [address]Dr. Nahed Yañez PLT 385 103/ul Normal 150-[address] [facility] Comment on above: Performed By: #### C BC ####[facility] Cntgatdtcd4726 [place] [phone]. Nahed Yañez RBC 4.77 106/ul Normal 4.20-5.[address] [facility] Comment on above: Performed By: #### C BC ####[facility] Wnfzngsgtz1045 [place] [phone]. Nahed Yañez WBC 15.3 103/ul Critically high 4.0-11.0 [facility] Comment on above: Performed By: #### C BC ####[facility] Txfibnzqrf9177 [place] [address]Dr. Nahed Yañez PROF CHEM 8 (BAS METB)on Anion gap [Moles/Vol] 13.4 mmol/L Normal Th [facility] Comment on above: Performed By: #### C NGHIA, BMP ####[facility] Wshvalfkfv4734[address] [place], [place] [address]Dr. Nahed Yañez Calcium [Mass/Vol] 9.5 mg/dL Normal 8.5-10.1 [facility] Comment on above: Performed By: #### C NGHIA, BMP ####[facility] Zpztolwtiz9812[address] [place], [place] [address]Dr. Nahed Yañez Chloride [Moles/Vol] 101 mmol/L Normal 98-107 [facility] Comment on above: Performed By: #### C NGHIA, BMP ####[facility] Fhtvdjrxvd701[address] [place], [place] [address]Dr. Nahed Yañez CO2 [Moles/Vol] 27.9 mmol/L Normal 21.0-32.0 [facility] Comment on above: Performed By: #### C NGHIA, BMP ####[facility] Jaeesoobhw7008[address] [place], [place] [address]Dr. Nahed Yañez Creatinine [Mass/Vol] 0.91 mg/dL Normal 0.55-1.02 [facility] Comment on above: Performed By: #### C NGHIA, BMP ####[facility] Cdlcexvypb6718[address] [place], [place] [address]Dr. Nahed Yañez EGFR-AF MONTSERRATIAN >60 Normal >=60 [facility] Comment on above: Performed By: #### C NGHIA, BMP ####[facility] Doqavayilk035[address] [place], [place] [address]Dr. Nahed Yañez EGFR-NON AF MONTSERRATIAN >60 Normal >=[address] [facility] Comment on above: Performed By: #### C NGHIA, BMP ####[facility] Yaiihmlvsm2183[address] [place], [place] [address]Dr. Nahed Yañez Glucose [Mass/Vol] 100 mg/dL Normal 74-[address] [facility] Comment on above: Performed By: #### Isabell AGRAWAL, BMP ####[facility] Bjzahrvmbo5206[address] [place], [place] [address]Dr. Nahed Yañez Potassium [Moles/Vol] 4.3 mmol/L Normal 3.5-5.[address] [facility] Comment on above: Result Comment: samp le slightly hemolized Performed By: #### C NGHIA, BMP ####[facility] Gfpscpocyy8155[address] [place], [place] [address]Dr. Nahed Yañez Sodium [Moles/Vol] 138 mmol/L Normal 136-[address] [facility] Comment on above: Performed By: #### C NGHIA, BMP ####[facility] Hdabgrvqan619[address] [place], [place] [address]Dr. Nahed Yañez Urea nitrogen [Mass/Vol] 34.0 mg/dL Critically high 7.0-18.[address] [facility] Comment on above: Performed By: #### Isabell AGRAWAL, BMP ####[facility] Pgptcbczme689[address] [place], [place] [address]Dr. Nahed Yañez Urea nitrogen/Creatinine [Mass ratio] 37.4 mg/mg Normal [facility] Comment on above: Performed By: #### Isabell AGRAWAL, BMP ####[facility] Ulqkhrrtoi7213[address] [place], [place] [address]Dr. Nahed Yañez BNPon 07-28-2022 Natriuretic peptide B (Bld) [Mass/Vol] 249.0 pg/mL Normal <=900.[address] [facility] Comment on above: Performed By: #### B WORK ENVIRONMENT SAFETY INSPECTOR ####[facility] Ucsfqnzuhh535[address] [place], [place] [address]Dr. Nahed Yañez CBC AUTO DIFFon 07-28-2022 BASO # 0.0 103/ul Normal 0.0-0.[address] [facility] Comment on above: Performed By: #### C BC ####[facility] Ioszmduncz2376[address] [place], [place] [address]Dr. Nahed Yañez Basophils/100 WBC (Bld) 0.1 % Critically low 0.2-2.[address] [facility] Comment on above: Performed By: #### C BC ####[facility] Pqvdupccqn7753 [place] [address]Dr. Nahed Yañez EO # 0.0 103/ul Normal 0.0-0.[address] [facility] Comment on above: Performed By: #### C BC ####[facility] Xbaurmvmmr5083 [place] [address]Dr. Nahed Yañez Eosinophils/100 WBC (Bld) 0.0 % Critically low 0.9-7.0 [facility] Comment on above: Performed By: #### C BC ####[facility] Fksxmmjwez7079[address] [place], [place] [address]Dr. Nahed Yañez Erythrocyte distribution width (RBC) [Ratio] 14.3 % Normal 11.0-15.0 [facility] Comment on above: Performed By: #### C BC ####[facility] Kgnjuypfex436[address] [place], [place] [address]Dr. Nahed Yañez Hematocrit (Bld) [Volume fraction] 38.7 % Normal 36.0-48.0 [facility] Comment on above: Performed By: #### C BC ####[facility] Ioacdreqsj7397[address] [place], [place] [address]Dr. Nahed Yañez Hemoglobin (Bld) [Mass/Vol] 12.2 g/dL Normal 12.0-16.0 [facility] Comment on above: Performed By: #### C BC ####[facility] Jqwqjcxtes0870[address] [place], [place] [address]Dr. Nahed Yañez IG # 0.06 10e3/ul Critically high 0.00-0.03 [facility] Comment on above: Performed By: #### C BC ####[facility] Cvklpdcklm812[address] [place], [place] [address]Dr. Nahed Yañez IG % 0.5 % Normal 0.0-0.[address] [facility] Comment on above: Performed By: #### C BC ####[facility] Ildqqjiyme1995[address] [place], [place] [address]DrShaun Yañez LYMPH # 0.7 103/ul Critically low 1.2-3.8 [facility] Comment on above: Performed By: #### C BC ####[facility] Qbipxqfzyx4206 [place] [address]DrShaun Yañez Lymphocytes/100 WBC (Bld) 5.7 % Critically low 20.5-60.0 [facility] Comment on above: Performed By: #### C BC ####[facility] Zgcvqttjjo5853 [place] [address]DrShaun Yañez MANUAL DIFF REQ NO Normal [facility] Comment on above: Performed By: #### C BC ####[facility] Bzbrxzgdvr2022 [place] [phone] Yañez MCH (RBC) [Entitic mass] 28.2 pg Normal 26.7-34.[address] [facility] Comment on above: Performed By: #### C BC ####[facility] Seyfiqseej2153[address] [place], [place] [address]Dr. Nahed Yañez MCHC (RBC) [Mass/Vol] 31.5 g/dL Normal 29.9-35.2 [facility] Comment on above: Performed By: #### C BC ####[facility] Owsarfktfo7[address] [place], [place] [address]DrShaun Yañez MCV (RBC) [Entitic vol] 89.6 fL Normal 81.0-99.[address] [facility] Comment on above: Performed By: #### C BC ####[facility] Yjgwlzqumf0096 [place] [address]DrShaun Yañez MONO # 0.3 103/ul Normal 0.3-0.[address] [facility] Comment on above: Performed By: #### C BC ####[facility] Eyybyamfxb[address] [place], [place] [id number] Yañez Monocytes/100 WBC (Bld) 2.2 % Normal 1.7-12.[address] [facility] Comment on above: Performed By: #### C BC ####[facility] Opfkxasdvb[address] [place], [place] [phone] Yañez NEUT # 11.1 103/ul Critically high 1.4-6.5 [facility] Comment on above: Performed By: #### C BC ####[facility] Tmysrurxdl2603 [place] [phone]. Nahed Yañez Neutrophils/100 WBC (Bld) 91.5 % Critically high 43.0-75.0 [facility] Comment on above: Performed By: #### C BC ####[facility] Ukdowfmber5209 [place] [phone]. Nahed Otilio Platelet mean volume (Bld) [Entitic vol] 10.1 fL Normal 9.5-13.5 [facility] Comment on above: Performed By: #### C BC ####[facility] Bfkriqkolu4938 [place] [phone]. Nahed Otilio PLT 323 103/ul Normal 150-450 [facility] Comment on above: Performed By: #### C BC ####[facility] Mqvkrvitnm0488 [place] [address]Dr. Nahed Otilio RBC 4.32 106/ul Normal 4.20-5.40 [facility] Comment on above: Performed By: #### C BC ####[facility] Bnsqufohro8105 [place] [phone]. Nahed Otilio WBC 12.1 103/ul Critically high 4.0-11.0 [facility] Comment on above: Performed By: #### C BC ####[facility] Fesfhzizny0781 [place] [phone]. Nahed Otilio POINT OF CARE GLUCOSEon 07-12 Glucose [Mass/Vol] 308 mg/dL Critically high 74-106 [facility] Comment on above: Performed By: #### P OCGLUC ####[facility] Ixyawblfmc4806 [place] [phone]. Nahed Yañez Glucose [Mass/Vol] 341 mg/dL Critically high 74-106 [facility] Comment on above: Performed By: #### P OCGLUC ####[facility] Nrgkrpklum4034 [place] [phone]. Nahed Yañez Glucose [Mass/Vol] 320 mg/dL Critically high 74-106 [facility] Comment on above: Performed By: #### P OCGLUC ####[facility] Ieohvvjxwc9616 [place] [address]Dr. Nahed Yañez PROF 14(COMP METB)on 023 Albumin [Mass/Vol] 3.0 g/dL Critically low 3.4-5.0 [facility] Comment on above: Performed By: #### C MP ####[facility] Wxhegjlsir8687[address] [place], [place] [address]Dr. Nahed Yañez Albumin/Globulin [Mass ratio] 0.7 {ratio} Normal [facility] Comment on above: Performed By: #### C MP ####[facility] Tdqtpgdllm067[address] [place], [place] [address]Dr. Nahed Yañez ALP [Catalytic activity/Vol] 93 U/L Normal 46-116 [facility] Comment on above: Performed By: #### C MP ####[facility] Nudiisbwkt8176[address] [place], [place] [address]Dr. Nahed Yñaez ALT [Catalytic activity/Vol] 15 U/L Normal 14-59 [facility] Comment on above: Performed By: #### C MP ####[facility] Bxghmnywve272[address] [place], [place] [address]Dr. Nahed Yañez Anion gap [Moles/Vol] 13.0 mmol/L Normal [facility] Comment on above: Performed By: #### C MP ####[facility] Mywowemwtv759[address] [place], [place] [address]Dr. Nahed Yañez AST [Catalytic activity/Vol] 11 U/L Critically low 15-37 [facility] Comment on above: Performed By: #### C MP ####[facility] Lqtnplatbp8145[address] [place], [place] [address]Dr. Nahed Yañez Bilirubin [Mass/Vol] 0.2 mg/dL Normal 0.2-1.0 [facility] Comment on above: Performed By: #### C MP ####[facility] Evsuuhcbuz4917[address] [place], [place] [address]Dr. Nahed Yañez Calcium [Mass/Vol] 9.6 mg/dL Normal 8.5-10.1 [facility] Comment on above: Performed By: #### C MP ####[facility] Dpegztuxid0155 [place] [address]Dr. Nahed Yañez Chloride [Moles/Vol] 100 mmol/L Normal 98-107 [facility] Comment on above: Performed By: #### C MP ####[facility] Gnxzyokpvg3363 [place] [address]Dr. Nahed Yañez CO2 [Moles/Vol] 27.3 mmol/L Normal 21.0-32.0 [facility] Comment on above: Performed By: #### C MP ####[facility] Cfmtzewfey3428 [place] [address]Dr. Nahed Otilio Creatinine [Mass/Vol] 1.19 mg/dL Critically high 0.55-1.02 [facility] Comment on above: Performed By: #### C MP ####[facility] Rmfxctnfri0688[address] [place], [place] [address]Dr. Nahed Otilio EGFR-AF MONTSERRATIAN 56 mL/min/1.73m2 Critically low >=60 [facility] Comment on above: Performed By: #### C MP ####[facility] Jtofrnscvp2726[address] [place], [place] [address]Dr. Nahed Otilio EGFR-NON AF MONTSERRATIAN 46 mL/min/1.73m2 Critically low >=60 [facility] Comment on above: Performed By: #### C MP ####[facility] Lsixgikbni4740[address] [place], [place] [address]Dr. Nahed Otilio Globulin (S) [Mass/Vol] 4.1 g/dL Normal [facility] Comment on above: Performed By: #### C MP ####[facility] Lfnambvatp1408 [place] [address]Dr. Rosemarieashley Otilio Glucose [Mass/Vol] 244 mg/dL Critically high 74-106 [facility] Comment on above: Performed By: #### C MP ####[facility] Palgxltiib3729 [place] [address]Dr. Nahed Yañez Potassium [Moles/Vol] 4.3 mmol/L Normal 3.5-5.[address] [facility] Comment on above: Performed By: #### C MP ####[facility] Jkbabuxeqp855[address] [place], [place] [address]Dr. Nahed Yañez Protein [Mass/Vol] 7.1 g/dL Normal 6.4-8.2 [facility] Comment on above: Performed By: #### C MP ####[facility] Tcyfqnfipl2894[address] [place], [place] [address]Dr. Nahed Yañez Sodium [Moles/Vol] 136 mmol/L Normal 136-[address] [facility] Comment on above: Performed By: #### C MP ####[facility] Dvdzpgoftv73[address] [place], [place] [address]Dr. Nahed Otilio Urea nitrogen [Mass/Vol] 19.0 mg/dL Critically high 7.0-18.[address] [facility] Comment on above: Performed By: #### C MP ####[facility] Trexdtdipf2515[address] [place], [place] [address]Dr. Rosemarieashley Otilio Urea nitrogen/Creatinine [Mass ratio] 16.0 mg/mg Normal [facility] Comment on above: Performed By: #### C MP ####[facility] Hlejfjohnr566[address] [place], [place] [address]Dr. Nahed Otilio BNPon 07-27-2022 Natriuretic peptide B (Bld) [Mass/Vol] 1093.0 pg/mL Critically high <=900.0 [facility] Comment on above: Performed By: #### B WORK ENVIRONMENT SAFETY INSPECTOR ####[facility] Jpsnlzdely9158[address] [place], [place] [address]Dr. Nahed Otilio CBC AUTO DIFFon 07-27-2022 BASO # 0.1 103/ul Normal 0.0-0.[address] [facility] Comment on above: Performed By: #### C BC ####[facility] Lsxsrryjwz3467[address] [place], [place] [address]Dr. Nahed Otilio Basophils/100 WBC (Bld) 0.3 % Normal 0.2-2.[address] [facility] Comment on above: Performed By: #### C BC ####[facility] Fwhdthanww8907 [place] [address]Dr. Nahed Yañez EO # 0.2 103/ul Normal 0.0-0.[address] [facility] Comment on above: Performed By: #### C BC ####[facility] Husdropgwa8942 [place] [address]Dr. Nahed Yañez Eosinophils/100 WBC (Bld) 1.2 % Normal 0.9-7.[address] [facility] Comment on above: Performed By: #### C BC ####[facility] Bzjcgucqpy60[address] [place], [place] [address]Dr. Nahed Yañez Erythrocyte distribution width (RBC) [Ratio] 14.1 % Normal 11.0-15.[address] [facility] Comment on above: Performed By: #### C BC ####[facility] Oszdoaetvs7[address] [place], [place] [address]Dr. Nahed Yañez Hematocrit (Bld) [Volume fraction] 42.2 % Normal 36.0-48.[address] [facility] Comment on above: Performed By: #### C BC ####[facility] Zustzrejwc8[address] [place], [place] [address]Dr. Nahed Yañez Hemoglobin (Bld) [Mass/Vol] 13.6 g/dL Normal 12.0-16.[address] [facility] Comment on above: Performed By: #### C BC ####[facility] Sjitruirok9674[address] [place], [place] [address]Dr. Nahed Yañez IG # 0.09 10e3/ul Critically high 0.00-0.03 The [facility] Comment on above: Performed By: #### C BC ####[facility] Dbzdbeiaxi[address] [place], [place] [address]Dr. Nahed Yañez IG % 0.5 % Normal 0.0-0.[address] [facility] Comment on above: Performed By: #### C BC ####[facility] Cdgtqiyeqa[address] [place], [place] [address]Dr. Nahed Yañez LYMPH # 1.8 103/ul Normal 1.2-3.[address] [facility] Comment on above: Performed By: #### C BC ####[facility] Otywhhcnbd[address] [place] [address]Dr. Nahed Otilio Lymphocytes/100 WBC (Bld) 10.2 % Critically low 20.5-60.[address] [facility] Comment on above: Performed By: #### C BC ####[facility] Akhorwqrzs4[address] [place] [address]Dr. Rosemarieashley Yañez MANUAL DIFF REQ NO Normal The [facility] Comment on above: Performed By: #### C BC ####[facility] Ytimyqbqru6704 [place] [address]Dr. Rosemarieashley Yañez MCH (RBC) [Entitic mass] 28.3 pg Normal 26.7-34.[address] [facility] Comment on above: Performed By: #### C BC ####[facility] Liznilamvu[address] [place], [place] [address]Dr. Rosemarieashley Yañez MCHC (RBC) [Mass/Vol] 32.2 g/dL Normal 29.9-35.[address] [facility] Comment on above: Performed By: #### C BC ####[facility] Hfohetlgjt[address] [place] [address]Dr. Rosemarieashley Yañez MCV (RBC) [Entitic vol] 87.9 fL Normal 81.0-99.[address] [facility] Comment on above: Performed By: #### C BC ####[facility] E[address]wvmeram[address] [place], [place] [address]Dr. Nahed Yañez MONO # 0.9 103/ul Critically high 0.3-0.8 The [facility] Comment on above: Performed By: #### C BC ####[facility] Moaeudzddg7[address] [place] [address]Dr. Rosemarieashley Yañez Monocytes/100 WBC (Bld) 5.2 % Normal 1.7-12.[address] [facility] Comment on above: Performed By: #### C BC ####[facility] Tyyjouvvfj40[address] [place] [address]Dr. Nahed Yañez NEUT # 14.4 103/ul Critically high 1.4-6.5 The [facility] Comment on above: Performed By: #### C BC ####[facility] Rbekdupegp7524 [place], [place] [address]Gp. Nahed Yañez Neutrophils/100 WBC (Bld) 82.6 % Critically high 43.0-75.[address] [facility] Comment on above: Performed By: #### C BC ####[facility] Anzbunvddy2622 [place], [place] [address]Da. Nahed Yañez Platelet mean volume (Bld) [Entitic vol] 10.1 fL Normal 9.5-13.[address] [facility] Comment on above: Performed By: #### C BC ####[facility] Diwvquasyc3106 [place], [place] [address]Iq. Nahed Yañez PLT 336 103/ul Normal 150-[address] [facility] Comment on above: Performed By: #### C BC ####[facility] Eegmosdntb3874 [place], [place] [address]Cy. Nahed Yañez RBC 4.80 106/ul Normal 4.20-5.[address] [facility] Comment on above: Performed By: #### C BC ####[facility] Djqxtbgxhf1609 [place], [place] [address]Gh. Nahed Yañez WBC 17.4 103/ul Critically high 4.0-11.0 The [facility] Comment on above: Performed By: #### C BC ####[facility] Ignierzwhc0313 [place], [place] [address]Bk. Nahed Yañez CTA CHEST WO W CONon 023 CTA CHEST WO W CON Normal The [facility] Covid-19 PCR ([facility])on 07-12 SARS-CoV-2 (COVID-19) RNA MIRNA+probe Ql (Unsp spec) Not detected Normal NOT DETECTED The [facility] Comment on above: Result Comment: When [...] for this test is supported by the Electric Utility Lineworker of Health and Human Service's declaration that [...] be used). Performed By: #### C VDTB ####[facility] Dcgapweist[address] [place], [place] [address]Dr. Nahed Yañez ECHOCARDIO M/2D COMPLETEon 0 07-27-2022 ECHOCARDIO M/2D COMPLETE Normal The [facility] ER URINE PROFILEon 3 Bilirubin Ql (U) Negative Normal NEGATIVE The [facility] Comment on above: Performed By: #### U MICRO, ERUR ####[facility] Klkvhccnxk[address] [place], [place] [address]Dr. Nahed Yañez Clarity (U) CLEAR Normal CLEAR [facility] Comment on above: Performed By: #### U MICRO, ERUR ####[facility] Lyzgiaxwet[address] [place], [place] [address]Dr. Nahed Yañez Color (U) LT. YELLOW Normal YELLOW The [facility] Comment on above: Performed By: #### U MICRO, ERUR ####[facility] Ounwuhzoxu[address] [place], [place] [address]Dr. Nahed Yañez ERUAHD A micrscopic examination will be performed if indicated. Normal The [facility] Comment on above: Performed By: #### U MICRO, ERUR ####[facility] [address] [place], [place] [address]Dr. Nahed Yañez Glucose Ql (U) >1000 Abnormal NEGATIVE The [facility] Comment on above: Performed By: #### U MICRO, ERUR ####[facility] Lvngjbndsz[address] [place], [place] [address]Dr. Nahed Yañez Hemoglobin Ql (U) TRACE-LYSED Abnormal NEGATIVE The [facility] Comment on above: Performed By: #### U MICRO, ERUR ####[facility] Gupnedpgja[address] [place], [place] [address]Dr. Nahed Yañez Ketones Ql (U) TRACE Abnormal NEGATIVE The [facility] Comment on above: Performed By: #### U MICRO, ERUR ####[facility] Ulcztxzhux75[address] [place] [address]Dr. Nahed Yañez LEUKOCYTES Negative Normal NEGATIVE [facility] Comment on above: Performed By: #### U MICRO, ERUR ####[facility] Amrnerqskh8692 [place] [address]Dr. Rosemarieashley Yañez Nitrite Ql (U) Negative Normal NEGATIVE The [facility] Comment on above: Performed By: #### U MICRO, ERUR ####[facility] Rkbrborhot5527 [place] [address]Dr. Nahed Yañez pH (U) 7.0 [pH] Normal 5-9 [facility] Comment on above: Performed By: #### U MICRO, ERUR ####[facility] Dabmizjztm5134 [place] [address]Dr. Nahed Yañez SPEC GRAVITY 1.020 Normal 1.005-<=1.02 5 [facility] Comment on above: Performed By: #### U MICRO, ERUR ####[facility] Wgnlxxnppx95[address] [place] [address]Dr. Nahed Yañez UA PROTEIN Negative Normal NEGATIVE/ TRACE [facility] Comment on above: Performed By: #### U MICRO, ERUR ####[facility] Gkhapdyitx2950 [place] [address]Dr. Nahed Yañez UR MICRO IND INDICATED Normal [facility] Comment on above: Performed By: #### U MICRO, ERUR ####[facility] Pgpxxcvfax9510 [place] [address]Dr. Nahed Yañez Urobilinogen Qn (U) 0.2 {Alem'U}/dL Normal 0.2 - 1. 0 [facility] Comment on above: Performed By: #### U MICRO, ERUR ####[facility] Cnyyitnazt6407 [place] [address]Dr. Nahed Yañez LIPID PROFILEon 07-27-2022 CHOL-HDL RATIO NORM SEE BELOW Normal [facility] Comment on above: Result Comment: 3.3 - 4.4 LOW RISK 4.4 - 7.1 AVERAGE RISK 7.1 - 11.0 MODERATE RISK >11.0 HIGH RISK Performed By: #### M Teresa, LIPID ####[facility] Heaslsfirs5739 [place], [place] [address]Gk. Nahed Yañez Cholesterol [Mass/Vol] 181 mg/dL Normal <=200 Th [facility] Comment on above: Performed By: #### M G, LIPID ####[facility] Bwrnlqvzqi5228 [place], [place] [address]Pg. Nahed Yañez Cholesterol in HDL [Mass/Vol] 87 mg/dL Critically high 40-60 [facility] Comment on above: Performed By: #### Pablo Moore, LIPID ####[facility] Jlmppqejmd9471 [place], [place] [address]En. Nahed Yañez Cholesterol in LDL [Mass/Vol] 78.6 mg/dL Normal [facility] Comment on above: Performed By: #### Pablo Moore, LIPID ####[facility] Ncxgssincp4846 [place], [place] [address]Gk. Nahed Yañez Cholesterol.total/Chol esterol in HDL [Mass ratio] 2.1 {ratio} Normal [facility] Comment on above: Performed By: #### Pablo Moore, LIPID ####[facility] Lcdovjxpqc2489 [place], [place] [address]Ol. Rosemarielan Yañez HDL NORMAL > or = 60 mg/dl - LO W CARDIOVASCULAR RISK <40 mg/dl - HIGH CARDIOVASCULAR RISK Normal [facility] Comment on above: Performed By: #### Pablo Moore, LIPID ####[facility] Sklchdhqhe7439 [place], [place] [address]Sd. Rosemarielan Yañez LDL CALC NORMAL SEE BELOW Normal [facility] Comment on above: Result Comment: <100 mg/dl OPTIMAL 100 - 129 mg/dl NEAR OR ABOVE OPTIMAL 130 - 159 mg/dl BORDERLINE HIGH 160 - 189 mg/dl HIGH >190 mg/dl VERY HIGH Performed By: #### M Teresa, LIPID ####[facility] Gjsdkomlwu2867 [place], [place] [address]Ec. Rosemarielan Yañez Triglyceride [Mass/Vol] 77 mg/dL Normal <=150 [facility] Comment on above: Performed By: #### M G, LIPID ####[facility] Yjbmwujisn73[address] [place] [address]Dr. Nahed Yañez VLDL CALC 15.4 mg/dL Normal [facility] Comment on above: Performed By: #### M G, LIPID ####[facility] Kfrkjemotn9562 [place] [address]Dr. Nahed Yañez MAGNESIUMon 07-27-2022 Magnesium [Mass/Vol] 1.7 mg/dL Critically low 1.8-2.4 [facility] Comment on above: Performed By: #### M Teresa, LIPID ####[facility] Vhlnypdqji6387 [place] [address]Dr. Rosemarieashley Yañez POINT OF CARE GLUCOSEon 07-12 Glucose [Mass/Vol] 276 mg/dL Critically high 74-106 [facility] Comment on above: Performed By: #### P OCGLUC ####[facility] Phvihiztyg9608 [place] [address]Dr. Nahed Yañez Glucose [Mass/Vol] 143 mg/dL Critically high 74-106 [facility] Comment on above: Performed By: #### P OCGLUC ####[facility] Wqvwifgopq4993 [place] [address]Dr. Nahed Yañez Glucose [Mass/Vol] 117 mg/dL Critically high 74-106 [facility] Comment on above: Performed By: #### P OCGLUC ####[facility] Ioebiukgoz6749 [place] [address]Dr. Rosemarieashley Yañez PROF CHEM 8 (BAS METB)on Anion gap [Moles/Vol] 11.1 mmol/L Normal [facility] Comment on above: Performed By: #### B RENZO HSTROPN ####[facility] Ddrgawnxoz8410 [place] [address]Dr. Nahed Yañez Calcium [Mass/Vol] 9.6 mg/dL Normal 8.5-10.1 [facility] Comment on above: Performed By: #### B MP, HSTROPN ####[facility] Kywkyzirbs[address] [place] [id number]. Nahed Otilio Chloride [Moles/Vol] 99 mmol/L Normal 98-107 [facility] Comment on above: Performed By: #### B RENZO, HSTROPN ####[facility] Xfnvkvcemo[address] [place] [address]Dr. Rosemarieashley Otilio CO2 [Moles/Vol] 27.8 mmol/L Normal 21.0-32.0 The [facility] Comment on above: Performed By: #### B RENZO, HSTROPN ####[facility] Wzsafplzrh5248 [place] [address]Dr. Rosemarieashley Yañez Creatinine [Mass/Vol] 0.90 mg/dL Normal 0.55-1.02 [facility] Comment on above: Performed By: #### B RENZO, HSTROPN ####[facility] Npoupqphvz2420 [place] [address]Dr. Rosemarieashley Otilio EGFR-AF MONTSERRATIAN >60 Normal >=60 The [facility] Comment on above: Performed By: #### B RENZO, HSTROPN ####[facility] Xnvxlxszle01[address] [place] [address]Dr. Nahed Otilio EGFR-NON AF MONTSERRATIAN >60 Normal >=60 [facility] Comment on above: Performed By: #### B RENZO, HSTROPN ####[facility] Txdjqfvceh7241 [place] [address]Dr. Rosemarieashley Otilio Glucose [Mass/Vol] 133 mg/dL Critically high 74-106 [facility] Comment on above: Performed By: #### B RENZO, HSTROPN ####[facility] Zoefqrofhb2581 [place] [id number]. Nahed Yañez Potassium [Moles/Vol] 3.9 mmol/L Normal 3.5-5.1 [facility] Comment on above: Performed By: #### B RENZO, HSTROPN ####[facility] Axfjcfvqep8951 [place] [id number]. Nahed Yañez Sodium [Moles/Vol] 134 mmol/L Critically low 136-[address] [facility] Comment on above: Performed By: #### B MP, HSTROPN ####[facility] Xbtpgvtfhs1143 [place] [address]Dr. Nahed Yañez Urea nitrogen [Mass/Vol] 9.0 mg/dL Normal 7.0-18.0 [facility] Comment on above: Performed By: #### B MP, HSTROPN ####[facility] Zvladuuwvy[address] [place] [address]Dr. Nahed Otilio Urea nitrogen/Creatinine [Mass ratio] 10.0 mg/mg Normal The [facility] Comment on above: Performed By: #### B MP, HSTROPN ####[facility] Qjcqaqfaol[address] [place] [address]Dr. Nahed Yañez TROPONIN, HIGH SENSITIVITYon 07-27-2022 HSTROP 40.7 pg/mL Normal 4.0-51.3 [facility] Comment on above: Result Comment: CUT- OFF POINTS HAVE BEEN ESTABLISHED BASED ON THE FOURTH UNIVERSAL DEFINITIONS OF MYOCARDIALINFARCTION. THE UPPER REFERENCE LIMIT (URL) OF TROPONIN, DEFINED THE 99TH PERCENTILE OFcTnI DISTRIBUTION IN A REFERENCE POPULATION, HAS BEEN CONFIRMED THE DECISION THRESHOLDFOR AK DIAGNOSIS. Performed By: #### H STROPN ####[facility] Lizxzfueyj29[address] [place] [address]Dr. Nahed Yañez HSTROP 42.5 pg/mL Normal 4.0-51.3 [facility] Comment on above: Result Comment: CUT- OFF POINTS HAVE BEEN ESTABLISHED BASED ON THE FOURTH UNIVERSAL DEFINITIONS OF MYOCARDIALINFARCTION. THE UPPER REFERENCE LIMIT (URL) OF TROPONIN, DEFINED THE 99TH PERCENTILE OFcTnI DISTRIBUTION IN A REFERENCE POPULATION, HAS BEEN CONFIRMED THE DECISION THRESHOLDFOR AK DIAGNOSIS. Performed By: #### H STROPN ####[facility] Ebqxtvgvze8795 [place] [address]Dr. Nahed Yañez HSTROP 50.8 pg/mL Normal 4.0-51.[address] [facility] Comment on above: Result Comment: CUT- OFF POINTS HAVE BEEN ESTABLISHED BASED ON THE FOURTH UNIVERSAL DEFINITIONS OF MYOCARDIALINFARCTION. THE UPPER REFERENCE LIMIT (URL) OF TROPONIN, DEFINED THE 99TH PERCENTILE OFcTnI DISTRIBUTION IN A REFERENCE POPULATION, HAS BEEN CONFIRMED THE DECISION THRESHOLDFOR AK DIAGNOSIS. Performed By: #### H STROPN ####[facility] Hbqgzjvqbp8347 [place] [address]Dr. Nahed Yañez HSTROP 46.3 pg/mL Normal 4.0-51.[address] [facility] Comment on above: Result Comment: CUT- OFF POINTS HAVE BEEN ESTABLISHED BASED ON THE [facility] UNIVERSAL DEFINITIONS OF MYOCARDIALINFARCTION. THE UPPER REFERENCE LIMIT (URL) OF TROPONIN, DEFINED THE 99TH PERCENTILE OFcTnI DISTRIBUTION IN A REFERENCE POPULATION, HAS BEEN CONFIRMED THE DECISION THRESHOLDFOR AK DIAGNOSIS. Performed By: #### H STROPN, TSH ####[facility] Ujbdefvgei6519 [place] [address]Dr. Nahed Yañez HSTROP 54.2 pg/mL Critically high 4.0-51.3 The [facility] Comment on above: Result Comment: CUT- OFF POINTS HAVE BEEN ESTABLISHED BASED ON THE FOURTH UNIVERSAL DEFINITIONS OF MYOCARDIALINFARCTION. THE UPPER REFERENCE LIMIT (URL) OF TROPONIN, DEFINED THE 99TH PERCENTILE OFcTnI DISTRIBUTION IN A REFERENCE POPULATION, HAS BEEN CONFIRMED THE DECISION THRESHOLDFOR AK DIAGNOSIS. Performed By: #### B MP, HSTROPN ####[facility] [address]lspft[address] [place], [place] [address]Dr. Nahed Otilio TSHon 07-27-2022 TSH 1.566 uIU/mL Normal 0.358-3.740 The [facility] Comment on above: Performed By: #### H STROPN, TSH ####[facility] Ainzqwhimn0727 [place] [address]Dr. Rosemarieashley Yañez URINE MICROSCOPIC ONLYon BACTERIA NONE SEEN Normal NONE SEEN The [facility] Comment on above: Performed By: #### U MICRO, ERUR ####[facility] Jjmixovsod[address] [place], [place] [address]Dr. Nahed Yañez Bacteria identified Cx Nom (U) NOT INDICATED Normal The [facility] Comment on above: Performed By: #### U MICRO, ERUR ####[facility] Nrulanelyb[address] [place], [place] [address]Dr. Nahed Yañez CAST NONE SEEN Normal NONE SEEN The [facility] Comment on above: Performed By: #### U MICRO, ERUR ####[facility] Hisccfofbt0343 [place] [address]Dr. Nahed Yañez Crystals LM Nom (Urine sed) NONE SEEN Normal NONE SEEN The [facility] Comment on above: Performed By: #### U MICRO, ERUR ####[facility] Lxaakefafw9496 [place] [address]Dr. Nahed Yañez Epithelial cells LM Ql (Urine sed) FEW Abnormal NONE SEEN /RARE The [facility] Comment on above: Performed By: #### U MICRO, ERUR ####[facility] Brcnkwgdct5866 [place] [address]Dr. Nahed Yañez MUCOUS NONE SEEN Normal NONE SEEN The [facility] Comment on above: Performed By: #### U MICRO, ERUR ####[facility] [address]vzntpebnd74[address] [place], [place] [address]Dr. Nahed Yañez RBC 0-2 Normal 0-[address] [facility] Comment on above: Performed By: #### U MICRO, ERUR ####[facility] Bkoezluicc[address] [place], [place] [address]Dr. Nahed Yañez WBC NONE SEEN Normal NONE SEEN The [facility] Comment on above: Performed By: #### U MICRO, ERUR ####[facility] Zugzxiyfoo33[address] [place], [place] [address]Dr. Nahed Yañez XR CHEST 1 Von 07-27-2022 XR CHEST 1 V Normal [facility] INSULINon 05-09-2022 Insulin 21.1 uIU/mL Normal 2.6-24.[address] [facility] Comment on above: Performed By: #### I NSULIN ####[facility] Xhavaehpoz[address] [place], [place] [address]Dr. Nahed Yañez BNPon 05-08-2022 Natriuretic peptide B (Bld) [Mass/Vol] 58.0 pg/mL Normal <=900.[address] [facility] Comment on above: Performed By: #### B WORK ENVIRONMENT SAFETY INSPECTOR, LIPID, T7, TSH, CMP ####[facility] [address] [place], [place] [address]Dr. Nahed Yañez CBC AUTO DIFFon 05-08-2022 BASO # 0.0 103/ul Normal 0.0-0.[address] [facility] Comment on above: Performed By: #### C BC ####[facility] Werqlaysjx7270 [place] [id number]. Nahed Yañez Basophils/100 WBC (Bld) 0.4 % Normal 0.2-2.[address] [facility] Comment on above: Performed By: #### C BC ####[facility] Ssknurmxpp5710 [place] [address]Dr. Nahed Yañez EO # 0.3 103/ul Normal 0.0-0.[address] [facility] Comment on above: Performed By: #### C BC ####[facility] Mnagdefbyv1618 [place] [address]Dr. Nahed Otilio Eosinophils/100 WBC (Bld) 4.2 % Normal 0.9-7.[address] [facility] Comment on above: Performed By: #### C BC ####[facility] Ditkmvhkqq8568 [place] [address]Dr. Nahed Yañez Erythrocyte distribution width (RBC) [Ratio] 14.0 % Normal 11.0-15.[address] [facility] Comment on above: Performed By: #### C BC ####[facility] Fxnjrxigij2408 [place] [address]Dr. Nahed Yañez Hematocrit (Bld) [Volume fraction] 43.8 % Normal 36.0-48.[address] [facility] Comment on above: Performed By: #### C BC ####[facility] Cthgimygnr2126 [place] [address]Dr. Nahed Yañez Hemoglobin (Bld) [Mass/Vol] 13.9 g/dL Normal 12.0-16.[address] [facility] Comment on above: Performed By: #### C BC ####[facility] [address]pmkzdbho[address] [place], [place] [address]Dr. Nahed Yañze IG # 0.01 10e3/ul Normal 0.00-0.[address] [facility] Comment on above: Performed By: #### C BC ####[facility] Lzntepctvj5380 [place], [place] [address]Dx. Nahed Yañez IG % 0.1 % Normal 0.0-0.[address] [facility] Comment on above: Performed By: #### C BC ####[facility] Zqxnhnfrwo9006 [place] [id number]. Nahed Yañez LYMPH # 2.8 103/ul Normal 1.2-3.[address] [facility] Comment on above: Performed By: #### C BC ####[facility] Cveopxztrr2063 [place] [phone]. Nahed Yañez Lymphocytes/100 WBC (Bld) 37.6 % Normal 20.5-60.[address] [facility] Comment on above: Performed By: #### C BC ####[facility] Mqdvjsgroq5899 [place] [id number]. Nahed Yañez MANUAL DIFF REQ NO Normal The [facility] Comment on above: Performed By: #### C BC ####[facility] Lkohknytjv1657 [place] [phone]. Nahed Yañez MCH (RBC) [Entitic mass] 28.4 pg Normal 26.7-34.[address] [facility] Comment on above: Performed By: #### C BC ####[facility] Hacagsmpkx2350 [place] [phone]. Nahed Yañez MCHC (RBC) [Mass/Vol] 31.7 g/dL Normal 29.9-35.[address] [facility] Comment on above: Performed By: #### C BC ####[facility] Kovnhbnlfy0355 [place] [phone]. Nahed Yañez MCV (RBC) [Entitic vol] 89.6 fL Normal 81.0-99.[address] [facility] Comment on above: Performed By: #### C BC ####[facility] Desukhaedr4220 [place] [phone]. Nahed Yañez MONO # 0.5 103/ul Normal 0.3-0.[address] [facility] Comment on above: Performed By: #### C BC ####[facility] Csuxxoemqc8737 [place] [phone]. Nahed Yañez Monocytes/100 WBC (Bld) 6.8 % Normal 1.7-12.[address] [facility] Comment on above: Performed By: #### C BC ####[facility] Oroabqqldc9496 [place] [phone]. Nahed Yañez NEUT # 3.7 103/ul Normal 1.4-6.[address] [facility] Comment on above: Performed By: #### C BC ####[facility] Dvdnjjtycw5666 [place] [phone]. Nahed Yañez Neutrophils/100 WBC (Bld) 50.9 % Normal 43.0-75.[address] [facility] Comment on above: Performed By: #### C BC ####[facility] Mynjsvxctq7415 [place] [phone]. Nahed Yañez Platelet mean volume (Bld) [Entitic vol] 9.8 fL Normal 9.5-13.[address] [facility] Comment on above: Performed By: #### C BC ####[facility] Hnwulewxqu2753 [place] [phone]. Nahed Yañez PLT 306 103/ul Normal 150-[address] [facility] Comment on above: Performed By: #### C BC ####[facility] Mvhinjspcy4777 [place] [phone]. Nahed Yañez RBC 4.89 106/ul Normal 4.20-5.[address] [facility] Comment on above: Performed By: #### C BC ####[facility] Wjdisajcmb7400 [place] [phone]. Nahed Yañez WBC 7.3 103/ul Normal 4.0-11.[address] [facility] Comment on above: Performed By: #### C BC ####[facility] Xyfchniemx2577 [place] [phone]. Nahed Yañez FREE THYROXINE INDEX T7on FTI 2.92 Normal 1.30-4.[address] [facility] Comment on above: Performed By: #### B WORK ENVIRONMENT SAFETY INSPECTOR, LIPID, T7, TSH, CMP ####[facility] Lvftnbcktq1155 [place] [phone]. Nahed Yañez T3U 34.0 % Normal 30.0-39.0 [facility] Comment on above: Performed By: #### B WORK ENVIRONMENT SAFETY INSPECTOR, LIPID, T7, TSH, CMP ####[facility] Hteufrcetk5616 [place] [phone]. Naehd Yañez T4 [Mass/Vol] 8.60 ug/dL Normal 4.80-13.90 [facility] Comment on above: Performed By: #### B WORK ENVIRONMENT SAFETY INSPECTOR, LIPID, T7, TSH, CMP ####[facility] [address] [place] [id number]. Nahed Yañez GLYCOHEMOGLOBIN A1Con 2021 ADA RECOMMENDATION SEE BELOW Normal [facility] Comment on above: Result Comment: ADA RECOMMENDED LIMIT 4.0 - 6.0 ADA THERAPEUTIC TARGET < 7.0 ACTION SUGGESTED > 7.0 Performed By: #### A 1C ####[facility] Unqu[address]byx[address] [place] [address]Dr. Nahed Yañez Glucose [Mass/Vol] 146 mg/dL Normal [facility] Comment on above: Performed By: #### A 1C ####[facility] Xleclchblh[address] [place] [address]Dr. Nahed Yañez HbA1c (Bld) [Mass fraction] 6.7 % Critically high 4.5-6.2 [facility] Comment on above: Performed By: #### A 1C ####[facility] Vroycrtwgy[address] [place] [id number]. Nahed Yañez IRONon 05-08-2022 Iron [Mass/Vol] 76.0 ug/dL Normal 50.0-170.0 [facility] Comment on above: Performed By: #### V ITAD, IRON ####[facility] Gexiygwyiz[address] [place] [phone]. Nahed Yañez LIPID PROFILEon 05-08-2022 CHOL-HDL RATIO NORM SEE BELOW Normal [facility] Comment on above: Result Comment: 3.3 - 4.4 LOW RISK 4.4 - 7.1 AVERAGE RISK 7.1 - 11.0 MODERATE RISK >11.0 HIGH RISK Performed By: #### B WORK ENVIRONMENT SAFETY INSPECTOR, LIPID, T7, TSH, CMP ####[facility] [address]zy[address] [place] [address]Dr. Nahed Yañez Cholesterol [Mass/Vol] 167 mg/dL Normal <=[address] [facility] Comment on above: Performed By: #### B WORK ENVIRONMENT SAFETY INSPECTOR, LIPID, T7, TSH, CMP ####[facility] Idji[address] [place], [place] [address]Dr. Nahed Yañez Cholesterol in HDL [Mass/Vol] 63 mg/dL Critically high 40-60 [facility] Comment on above: Performed By: #### B WORK ENVIRONMENT SAFETY INSPECTOR, LIPID, T7, TSH, CMP ####[facility] [address]qfptbujee[address] [place], [place] [address]Dr. Nahed Yañez Cholesterol in LDL [Mass/Vol] 72.6 mg/dL Normal [facility] Comment on above: Performed By: #### B WORK ENVIRONMENT SAFETY INSPECTOR, LIPID, T7, TSH, CMP ####[facility] Sdv[address]pxrwwv[address] [place], [place] [address]Dr. Nahed Yañez Cholesterol.total/Chol esterol in HDL [Mass ratio] 2.7 {ratio} Normal [facility] Comment on above: Performed By: #### B WORK ENVIRONMENT SAFETY INSPECTOR, LIPID, T7, TSH, CMP ####[facility] Tbqflrzxnr[address] [place], [place] [address]Dr. Nahed Yañez HDL NORMAL > or = 60 mg/dl - LO W CARDIOVASCULAR RISK <40 mg/dl - HIGH CARDIOVASCULAR RISK Normal [facility] Comment on above: Performed By: #### B WORK ENVIRONMENT SAFETY INSPECTOR, LIPID, T7, TSH, CMP ####[facility] [address]ajosahonk[address] [place], [place] [address]Dr. Nahed Yañez LDL CALC NORMAL SEE BELOW Normal [facility] Comment on above: Result Comment: <100 mg/dl OPTIMAL 100 - 129 mg/dl NEAR OR ABOVE OPTIMAL 130 - 159 mg/dl BORDERLINE HIGH 160 - 189 mg/dl HIGH >190 mg/dl VERY HIGH Performed By: #### B WORK ENVIRONMENT SAFETY INSPECTOR, LIPID, T7, TSH, CMP ####[facility] Jnidistkse[address] [place], [place] [address]Dr. Nahed Yañez Triglyceride [Mass/Vol] 157 mg/dL Critically high <=150 [facility] Comment on above: Performed By: #### B WORK ENVIRONMENT SAFETY INSPECTOR, LIPID, T7, TSH, CMP ####[facility] Zqsgabstou[address] [place] [address]Dr. Nahed Yañez VLDL CALC 31.4 mg/dL Normal [facility] Comment on above: Performed By: #### B WORK ENVIRONMENT SAFETY INSPECTOR, LIPID, T7, TSH, CMP ####[facility] Vnjlzgbebm[address] [place] [address]Dr. Nahed Yañez OCC BLD IMMUNO SCREENon 04-14 OCCULT BLOOD Negative Normal NEGATIVE [facility] Comment on above: Performed By: #### O BSCRN ####[facility] Xpfdmnpktj7[address] [place] [address]Dr. Nahed Yañez PROF 14(COMP METB)on 022 Albumin [Mass/Vol] 3.7 g/dL Normal 3.4-5.0 [facility] Comment on above: Performed By: #### B WORK ENVIRONMENT SAFETY INSPECTOR, LIPID, T7, TSH, CMP ####[facility] Rbwrlpxfqq34[address] [place] [address]Dr. Nahed Yañez Albumin/Globulin [Mass ratio] 0.9 {ratio} Normal [facility] Comment on above: Performed By: #### B WORK ENVIRONMENT SAFETY INSPECTOR, LIPID, T7, TSH, CMP ####[facility] Qimmbhxtlt50[address] [place] [address]Dr. Nahed Yañez ALP [Catalytic activity/Vol] 99 U/L Normal 46-116 [facility] Comment on above: Performed By: #### B WORK ENVIRONMENT SAFETY INSPECTOR, LIPID, T7, TSH, CMP ####[facility] Fkmxkempcc[address] [place] [address]Dr. Nahed Yañez ALT [Catalytic activity/Vol] 20 U/L Normal 14-59 [facility] Comment on above: Performed By: #### B WORK ENVIRONMENT SAFETY INSPECTOR, LIPID, T7, TSH, CMP ####[facility] Aqhfildyyk[address] [place] [address]Dr. Nahed Yañez Anion gap [Moles/Vol] 10.6 mmol/L Normal [facility] Comment on above: Performed By: #### B WORK ENVIRONMENT SAFETY INSPECTOR, LIPID, T7, TSH, CMP ####[facility] Uxqhvsgoga[address] [place] [address]Dr. Nahed Yañez AST [Catalytic activity/Vol] 29 U/L Normal 15-37 [facility] Comment on above: Performed By: #### B WORK ENVIRONMENT SAFETY INSPECTOR, LIPID, T7, TSH, CMP ####[facility] Xgnbabfpiu[address] [place], [place] [address]Dr. Nahed Yañez Bilirubin [Mass/Vol] 0.4 mg/dL Normal 0.2-1.0 [facility] Comment on above: Performed By: #### B WORK ENVIRONMENT SAFETY INSPECTOR, LIPID, T7, TSH, CMP ####[facility] X[address]ldncprsl6[address] [place], [place] [address]Dr. Nahed Yañez Calcium [Mass/Vol] 9.3 mg/dL Normal 8.5-10.1 [facility] Comment on above: Performed By: #### B WORK ENVIRONMENT SAFETY INSPECTOR, LIPID, T7, TSH, CMP ####[facility] Nxewfgfdnf[address] [place], [place] [address]Dr. Nahed Yañez Chloride [Moles/Vol] 100 mmol/L Normal 98-107 [facility] Comment on above: Performed By: #### B WORK ENVIRONMENT SAFETY INSPECTOR, LIPID, T7, TSH, CMP ####[facility] Wenoijwuit[address] [place], [place] [address]Dr. Nahed Yañez CO2 [Moles/Vol] 31.4 mmol/L Normal 21.0-32.0 [facility] Comment on above: Performed By: #### B WORK ENVIRONMENT SAFETY INSPECTOR, LIPID, T7, TSH, CMP ####[facility] Tqbcufubok[address] [place], [place] [address]Dr. Nahed Yañez Creatinine [Mass/Vol] 1.01 mg/dL Normal 0.55-1.02 [facility] Comment on above: Performed By: #### B WORK ENVIRONMENT SAFETY INSPECTOR, LIPID, T7, TSH, CMP ####[facility] Tuxyhoaqxy[address] [place], [place] [address]Dr. Nahed Yañez EGFR-AF MONTSERRATIAN >60 Normal >=60 [facility] Comment on above: Performed By: #### B WORK ENVIRONMENT SAFETY INSPECTOR, LIPID, T7, TSH, CMP ####[facility] Lqhwnfakav[address] [place] [address]Dr. Nahed Yañez EGFR-NON AF MONTSERRATIAN 56 mL/min/1.73m2 Critically low >=60 [facility] Comment on above: Performed By: #### B WORK ENVIRONMENT SAFETY INSPECTOR, LIPID, T7, TSH, CMP ####[facility] Wtpjgiqazf[address] [place] [address]Dr. Nahed Yañez Globulin (S) [Mass/Vol] 3.9 g/dL Normal [facility] Comment on above: Performed By: #### B WORK ENVIRONMENT SAFETY INSPECTOR, LIPID, T7, TSH, CMP ####[facility] Oawsktbqlr[address] [place], [place] [address]Dr. Nahed Yañez Glucose [Mass/Vol] 111 mg/dL Critically high 74-106 [facility] Comment on above: Performed By: #### B WORK ENVIRONMENT SAFETY INSPECTOR, LIPID, T7, TSH, CMP ####[facility] Pzmmdzlcvg[address] [place], [place] [address]Dr. Nahed Yañez Potassium [Moles/Vol] 4.0 mmol/L Normal 3.5-5.[address] [facility] Comment on above: Performed By: #### B WORK ENVIRONMENT SAFETY INSPECTOR, LIPID, T7, TSH, CMP ####[facility] Vsncbcmzzo[address] [place], [place] [address]Dr. Nahed Yañez Protein [Mass/Vol] 7.6 g/dL Normal 6.4-8.[address] [facility] Comment on above: Performed By: #### B WORK ENVIRONMENT SAFETY INSPECTOR, LIPID, T7, TSH, CMP ####[facility] Filtmndmuq[address] [place], [place] [address]Dr. Nahed Yañez Sodium [Moles/Vol] 138 mmol/L Normal 136-[address] [facility] Comment on above: Performed By: #### B WORK ENVIRONMENT SAFETY INSPECTOR, LIPID, T7, TSH, CMP ####[facility] Qzyvgoxhma4[address] [place], [place] [address]Dr. Nahed Yañez Urea nitrogen [Mass/Vol] 17.0 mg/dL Normal 7.0-18.0 [facility] Comment on above: Performed By: #### B WORK ENVIRONMENT SAFETY INSPECTOR, LIPID, T7, TSH, CMP ####[facility] D[address]xxamcno39[address] [place], [place] [address]Lo. Nahed Yañez Urea nitrogen/Creatinine [Mass ratio] 16.8 mg/mg Normal [facility] Comment on above: Performed By: #### B WORK ENVIRONMENT SAFETY INSPECTOR, LIPID, T7, TSH, CMP ####[facility] [address]nefjdpvgn[address] [place] [phone]. Nahed Yañez TSHon 05-08-2022 TSH 2.835 uIU/mL Normal 0.358-3.740 [facility] Comment on above: Performed By: #### B WORK ENVIRONMENT SAFETY INSPECTOR, LIPID, T7, TSH, CMP ####[facility] [address]zlkoipquz[address] [place] [phone]. Nahed Yañez VITAMIN D 25 OHon 05-08-2022 VIT D 25-OH 13.4 ng/mL Normal [facility] Comment on above: Performed By: #### V GRAEME, IRON ####[facility] [address]vys[address]ws[address] [place] [phone]. Nahed Yañez VIT D RANGES SEE BELOW Normal [facility] Comment on above: Result Comment: <20 ng/mL Vit D deficient 20 - <30 ng/mL Vit D insufficient 30 - 100 ng/mL Vit D sufficient >100 ng/mL Potential Toxicity Performed By: #### V GRAEME, IRON ####[facility] Mrdnmyignj[address] [place] [phone]. Nahed Yañez CARDIAC FRANCISCO 3-6on 2 CK [Catalytic activity/Vol] 37 U/L Normal 26-[address] [facility] Comment on above: Performed By: #### C MREP ####[facility] R[address]oyvnvo[address] [place] [phone]. Nahed Yañez CK.MB [Mass/Vol] 0.79 ng/mL Normal <=3.60 [facility] Comment on above: Performed By: #### C MREP ####[facility] Jfudvgnntw[address] [place] [phone]. Nahed Yañez HSTROP 55.3 pg/mL Critically high 4.0-51.3 [facility] Comment on above: Result Comment: CUT- OFF POINTS HAVE BEEN ESTABLISHED BASED ON THE FOURTH UNIVERSAL DEFINITIONS OF MYOCARDIALINFARCTION. THE UPPER REFERENCE LIMIT (URL) OF TROPONIN, DEFINED THE 99TH PERCENTILE OFcTnI DISTRIBUTION IN A REFERENCE POPULATION, HAS BEEN CONFIRMED THE DECISION THRESHOLDFOR AK DIAGNOSIS. Performed By: #### C MREP ####[facility] [address] [place], [place] [address]Kq. Nahed Yañez CK [Catalytic activity/Vol] 49 U/L Normal 26-[address] [facility] Comment on above: Performed By: #### C MREP ####[facility] Qykpidqagt4234 [place], [place] [address]Kk. Nahed Yañez CK.MB [Mass/Vol] 0.71 ng/mL Normal <=3.60 [facility] Comment on above: Performed By: #### C MREP ####[facility] Nlvxtxukuy9837 [place], [place] [address]Ny. Nahed Yañez HSTROP 62.6 pg/mL Critically high 4.0-51.3 [facility] Comment on above: Result Comment: CUT- OFF POINTS HAVE BEEN ESTABLISHED BASED ON THE FOURTH UNIVERSAL DEFINITIONS OF MYOCARDIALINFARCTION. THE UPPER REFERENCE LIMIT (URL) OF TROPONIN, DEFINED THE 99TH PERCENTILE OFcTnI DISTRIBUTION IN A REFERENCE POPULATION, HAS BEEN CONFIRMED THE DECISION THRESHOLDFOR AK DIAGNOSIS. Performed By: #### C MREP ####[facility] [address]qwmlg[address] [place] [phone]. Nahed Yañez Covid-19 PCR (CVDTB)on 01-13 SARS-CoV-2 (COVID-19) RNA MIRNA+probe Ql (Unsp spec) Not detected Normal NOT DETECTED [facility] Comment on above: Result Comment: When [...] for this test is supported by the Electric Utility Lineworker of Health and Human Service's declaration that [...] longer be used). Performed By: #### C [facility] ####[facility] [address]hmwyg[address] [place] [address]Dr. Nahed Yañez ECHO LIMITED STUDYon 022 ECHO LIMITED STUDY Normal [facility] GLYCOHEMOGLOBIN A1Con 2021 ADA RECOMMENDATION SEE BELOW Normal [facility] Comment on above: Result Comment: ADA RECOMMENDED LIMIT 4.0 - 6.0 ADA THERAPEUTIC TARGET < 7.0 ACTION SUGGESTED > 7.0 Performed By: #### A 1C ####[facility] Bqdeqheval[address] [place] [address]Dr. Nahed Yañez Glucose [Mass/Vol] 140 mg/dL Normal [facility] Comment on above: Performed By: #### A 1C ####[facility] Rigirsmivj[address] [place] [address]Dr. Nahed Yañez HbA1c (Bld) [Mass fraction] 6.5 % Critically high 4.5-6.2 [facility] Comment on above: Performed By: #### A 1C ####[facility] Tabuicldse[address] [place] [address]Dr. Nahed Yañez LIPID PROFILEon 01-31-2022 CHOL-HDL RATIO NORM SEE BELOW Normal [facility] Comment on above: Result Comment: 3.3 - 4.4 LOW RISK 4.4 - 7.1 AVERAGE RISK 7.1 - 11.0 MODERATE RISK >11.0 HIGH RISK Performed By: #### L IPID ####[facility] Vrprkztalh[address] [place] [address]Dr. Nahed Yañez Cholesterol [Mass/Vol] 152 mg/dL Normal <=200 Th [facility] Comment on above: Performed By: #### L IPID ####[facility] Tgueqvytwe37[address] [place], [place] [address]Wc. Rosemarieashley Otilio Cholesterol in HDL [Mass/Vol] 74 mg/dL Critically high 40-[address] [facility] Comment on above: Performed By: #### L IPID ####[facility] [address]zswfijxlr73[address] [place], [place] [address]Ny. Rosemarieashlye Otilio Cholesterol in LDL [Mass/Vol] 62.8 mg/dL Normal [facility] Comment on above: Performed By: #### L IPID ####[facility] Bbujfrrprh0208 [place], [place] [address]Qf. Nahed Yañez Cholesterol.total/Chol esterol in HDL [Mass ratio] 2.1 {ratio} Normal [facility] Comment on above: Performed By: #### L IPID ####[facility] Jyollzqxwx4875 [place], [place] [address]Tq. Nahed Yañez HDL NORMAL > or = 60 mg/dl - LO W CARDIOVASCULAR RISK <40 mg/dl - HIGH CARDIOVASCULAR RISK Normal [facility] Comment on above: Performed By: #### L IPID ####[facility] Wtpavddzxn4778 [place], [place] [address]Sv. Nahed Yañez LDL CALC NORMAL SEE BELOW Normal [facility] Comment on above: Result Comment: <100 mg/dl OPTIMAL 100 - 129 mg/dl NEAR OR ABOVE OPTIMAL 130 - 159 mg/dl BORDERLINE HIGH 160 - 189 mg/dl HIGH >190 mg/dl VERY HIGH Performed By: #### L IPID ####[facility] Kethpvxxwo[address] [place] [id number]. Nahed Yañez Triglyceride [Mass/Vol] 76 mg/dL Normal <=[address] [facility] Comment on above: Performed By: #### L IPID ####[facility] Xighgjngel[address] [place] [phone]. Nahed Yañez VLDL CALC 15.2 mg/dL Normal [facility] Comment on above: Performed By: #### L IPID ####[facility] Marvvutmug[address]32 [place], [place] [address]Tk. Nahed Yañez XR CHEST 1 Von 01-31-2022 XR CHEST 1 V Normal [facility] BNPon 01-30-2022 Natriuretic peptide B (Bld) [Mass/Vol] 150.0 pg/mL Normal <=900.[address] [facility] Comment on above: Performed By: #### B MP, BNP, CMADM ####[facility] Jigotshusv[address] [place] [phone]. Nahed Yañez CARDIAC FRANCISCO ADMITon 022 CK [Catalytic activity/Vol] 88 U/L Normal 26-[address] [facility] Comment on above: Performed By: #### B MP, BNP, CMADM ####[facility] Deomifhpph6[address] [place] [phone]. Nahed Yañez CK.MB [Mass/Vol] 1.26 ng/mL Normal <=3.60 [facility] Comment on above: Performed By: #### B MP, BNP, CMADM ####[facility] Tvivwawtju48[address] [place] [address]Dr. Nahed Yañez HSTROP 69.3 pg/mL Critically high 4.0-51.3 [facility] Comment on above: Result Comment: CUT- OFF POINTS HAVE BEEN ESTABLISHED BASED ON THE FOURTH UNIVERSAL DEFINITIONS OF MYOCARDIALINFARCTION. THE UPPER REFERENCE LIMIT (URL) OF TROPONIN, DEFINED THE 99TH PERCENTILE OFcTnI DISTRIBUTION IN A REFERENCE POPULATION, HAS BEEN CONFIRMED THE DECISION THRESHOLDFOR AK DIAGNOSIS. Performed By: #### B MP, BNP, CMADM ####[facility] Fiojpngvgr3663 [place] [address]Dr. Nahed Yañez ANDRE 59 ng/mL Normal 9-[address] [facility] Comment on above: Performed By: #### B MP, BNP, CMADM ####[facility] Jyvzpglexk3874 [place] [phone]. Nahed Yañez CBC AUTO DIFFon 01-30-2022 BASO # 0.0 103/ul Normal 0.0-0.[address] [facility] Comment on above: Performed By: #### C BC ####[facility] Usyukjkmvd[address] [place] [phone]. Nahed Yañez Basophils/100 WBC (Bld) 0.2 % Normal 0.2-2.0 [facility] Comment on above: Performed By: #### C BC ####[facility] Fhdypswqia7[address] [place] [address]Dr. Nahed Yañez EO # 0.1 103/ul Normal 0.0-0.7 [facility] Comment on above: Performed By: #### C BC ####[facility] Iajomtmbzt9[address] [place] [address]Dr. Nahed Yañez Eosinophils/100 WBC (Bld) 0.8 % Critically low 0.9-7.0 [facility] Comment on above: Performed By: #### C BC ####[facility] Winvguwywk9[address] [place] [address]Dr. Nahed Yañez Erythrocyte distribution width (RBC) [Ratio] 14.9 % Normal 11.0-15.0 [facility] Comment on above: Performed By: #### C BC ####[facility] Wrwjhfcbhd[address] [place], [place] [address]Dr. Nahed Yañez Hematocrit (Bld) [Volume fraction] 45.8 % Normal 36.0-48.0 [facility] Comment on above: Performed By: #### C BC ####[facility] Xndivoimkz[address] [place], [place] [address]Dr. Nahed Yañez Hemoglobin (Bld) [Mass/Vol] 14.7 g/dL Normal 12.0-16.0 [facility] Comment on above: Performed By: #### C BC ####[facility] Nylpoahgct[address] [place], [place] [address]Dr. Nahed Yañez IG # 0.07 10e3/ul Critically high 0.00-0.03 [facility] Comment on above: Performed By: #### C BC ####[facility] Lemkir[address]uk[address] [place], [place] [address]Dr. Nahed Yañez IG % 0.4 % Normal 0.0-0.5 [facility] Comment on above: Performed By: #### C BC ####[facility] Vdllrqkcqy7[address] [place], [place] [address]DrShaun Yañez LYMPH # 2.3 103/ul Normal 1.2-3.8 [facility] Comment on above: Performed By: #### C BC ####[facility] Jobkicqpuv[address] [place] [address]Dr. Nahed Otilio Lymphocytes/100 WBC (Bld) 12.5 % Critically low 20.5-60.0 [facility] Comment on above: Performed By: #### C BC ####[facility] Aalinfqddk[address] [place] [address]Dr. Nahed Yañez MANUAL DIFF REQ NO Normal [facility] Comment on above: Performed By: #### C BC ####[facility] Jemjrgmezn6778 [place] [phone]. Rosemarieashley Yañez MCH (RBC) [Entitic mass] 28.0 pg Normal 26.7-34.0 [facility] Comment on above: Performed By: #### C BC ####[facility] Vmdzxmxmls[address] [place], [place] [address]Dr. Nahed Yañez MCHC (RBC) [Mass/Vol] 32.1 g/dL Normal 29.9-35.2 [facility] Comment on above: Performed By: #### C BC ####[facility] Iczjdmypku[address] [place], [place] [address]Dr. Rosemarieashley Yañez MCV (RBC) [Entitic vol] 87.2 fL Normal 81.0-99.0 [facility] Comment on above: Performed By: #### C BC ####[facility] Qhwpwioeyx8916 [place] [address]Dr. Nahed Yañez MONO # 0.9 103/ul Critically high 0.3-0.8 [facility] Comment on above: Performed By: #### C BC ####[facility] Tagutfjgem4044 [place] [phone]. Nahed Yañez Monocytes/100 WBC (Bld) 5.1 % Normal 1.7-12.[address] [facility] Comment on above: Performed By: #### C BC ####[facility] Wcstfkjgsx3[address] [place], [place] [address]Dr. Nahed Yañez NEUT # 14.6 103/ul Critically high 1.4-6.5 [facility] Comment on above: Performed By: #### C BC ####[facility] Wztczwgsan3523 [place] [address]Dr. Nahed Yañez Neutrophils/100 WBC (Bld) 81.0 % Critically high 43.0-75.0 [facility] Comment on above: Performed By: #### C BC ####[facility] Mewxlosjba3038 [place] [address]Dr. Nahed Yañez Platelet mean volume (Bld) [Entitic vol] 10.3 fL Normal 9.5-13.5 [facility] Comment on above: Performed By: #### C BC ####[facility] N[address]cyvszdc[address] [place], [place] [address]Dr. Nahed Yañez PLT 280 103/ul Normal 150-450 [facility] Comment on above: Performed By: #### C BC ####[facility] Fqrrkuliin16[address] [place], [place] [address]Dr. Nahed Yañez RBC 5.25 106/ul Normal 4.20-5.40 [facility] Comment on above: Performed By: #### C BC ####[facility] Vildvljddu24[address] [place], [place] [address]Dr. Nahed Yañez WBC 18.1 103/ul Critically high 4.0-11.0 [facility] Comment on above: Performed By: #### C BC ####[facility] [address]aiwuxluaa[address] [place], [place] [address]Dr. Nahed Yaeñz PROF CHEM 8 (BAS METB)on Anion gap [Moles/Vol] 13.5 mmol/L Normal [facility] Comment on above: Performed By: #### B MP, BNP, CMADM ####[facility] Sxehpwjhwz7[address] [place] [address]Dr. Nahed Yañez Calcium [Mass/Vol] 9.5 mg/dL Normal 8.5-10.1 [facility] Comment on above: Performed By: #### B MP, BNP, CMADM ####[facility] H[address]ysycavg[address] [place], [place] [address]Dr. Nahed Yañez Chloride [Moles/Vol] 102 mmol/L Normal 98-107 [facility] Comment on above: Performed By: #### B MP, BNP, CMADM ####[facility] Zjuvbdcfub7968 [place] [address]Dr. Nahed Yañez CO2 [Moles/Vol] 26.6 mmol/L Normal 21.0-32.0 [facility] Comment on above: Performed By: #### B MP, BNP, CMADM ####[facility] Kakdqecafy[address] [place] [address]Dr. Nahed Yañez Creatinine [Mass/Vol] 1.06 mg/dL Critically high 0.55-1.02 [facility] Comment on above: Performed By: #### B MP, BNP, CMADM ####[facility] Bcyelkjjcs[address]74 [place] [address]Dr. Nahed Yañez EGFR-AF MONTSERRATIAN >60 Normal >=60 [facility] Comment on above: Performed By: #### B MP, BNP, CMADM ####[facility] B[address]gvyncee[address] [place], [place] [address]Dr. Nahed Yañez EGFR-NON AF MONTSERRATIAN 53 mL/min/1.73m2 Critically low >=60 [facility] Comment on above: Performed By: #### B MP, BNP, CMADM ####[facility] Noqzemvtbb3838 [place] [address]Dr. Nahed Yañez Glucose [Mass/Vol] 108 mg/dL Critically high 74-106 [facility] Comment on above: Performed By: #### B MP, BNP, CMADM ####[facility] [address] [place] [address]Dr. Nahed Yañez Potassium [Moles/Vol] 4.1 mmol/L Normal 3.5-5.1 [facility] Comment on above: Performed By: #### B MP, BNP, CMADM ####[facility] [address] [place] [address]Dr. Nahed Yañez Sodium [Moles/Vol] 138 mmol/L Normal 136-[address] [facility] Comment on above: Performed By: #### B MP, BNP, CMADM ####[facility] [address] [place], [place] [address]Jw. Nahed Yañez Urea nitrogen [Mass/Vol] 9.0 mg/dL Normal 7.0-18.0 [facility] Comment on above: Performed By: #### B MP, BNP, CMADM ####[facility] [address] [place], [place] [address]Iq. Nahed Yañez Urea nitrogen/Creatinine [Mass ratio] 8.5 mg/mg Normal [facility] Comment on above: Performed By: #### B MP, BNP, CMADM ####[facility] [address] [place], [place] [address]Qv. Nahed Yañez Cardiovascular Lab Reporton 11-03-2021 Cardiovascular Lab Report [facility] Patient Name: Vivian Vann [facility] MR #: [id number] Physician: Gasper Avendano, Department of M.D. Medicine Service Date: 11/02/2021 Division of Birthdate: 1960 Cardiology Room #: 4AB [id number] Adult Cardiovascular Services [place] [address] Cardiovascular Laboratory Report FINAL IMPRESSIONS: 1. Severe, [...] anterior descending coronary artery, placement of a 6-Senegalese MynxGrip closure device. METHODS: After risks, benefits, and alternatives were explained, written informed consent was obtained. The patient was prepped and draped in usual sterile fashion over both groins. Using 1% lidocaine solution, local infiltration anesthesia was achieved over the right groin. Under ultrasound guidance, a micropuncture kit was used to access the right common femoral artery. This was upsized to a 6-Senegalese 11 cm sheath. Angiography via the 6-Senegalese sheath was performed. Bilateral selective coronary angiography was performed using JL4 and JR4 catheters. After reviewing the images, it was elected to proceed with an interventional procedure. A 6-Senegalese XB3.5 guide catheter was advanced over a [...] artery, angiography was repeated initially using a 6-Senegalese 3DRC catheter and subsequently using a 4-Senegalese JR4 catheter. After administration of intracoronary nitroglycerin, the concerning lesion almost completely resolved. There was a residual mild stenosis. All catheters removed. A 6-Senegalese MynxGrip closure device was deployed per protocol [...] and anatomy suitable for closure device. INDICATION: Iah-UU-gcltyylbu myocardial infarction. Electronically Signed by: Gasper Avendano M.D. 11/21/2021 02:07 P Gasper Avendano M.D (more content not included)... Normal [facility] CBC COMPLETE BLOOD COUNTon 0 11-02-2021 Erythrocyte distribution width (RBC) [Ratio] 14.7 % Normal 11.5-15.[address] [facility] Comment on above: Order Comment: No: D o not add to previous draw Performed By: #### 3 8930, 76499 #### [facility] [address] [facility] [place] [address], [facility] Hematocrit (Bld) [Volume fraction] 34.5 % Low 36.0-45.[address] [facility] Comment on above: Order Comment: No: D o not add to previous draw Performed By: #### 3 0280, 89558 #### [facility] [address] [place] [address], [facility] Hemoglobin (Bld) [Mass/Vol] 10.6 g/dL Low 12.0-15.[address] [facility] Comment on above: Order Comment: No: D o not add to previous draw Performed By: #### 3 3400, 46761 #### [facility] [address] [place] [address], [facility] MCH (RBC) [Entitic mass] 28.1 pg Normal 27.0-33.[address] [facility] Comment on above: Order Comment: No: D o not add to previous draw Performed By: #### 3 0, 51283 #### [facility] [address] [place] [address], [facility] MCHC (RBC) [Mass/Vol] 30.7 g/dL Low 32.0-35.[address] [facility] Comment on above: Order Comment: No: D o not add to previous draw Performed By: #### 3 5199, 65573 #### [facility] [address] [place] [address], [facility] MCV (RBC) [Entitic vol] 91.5 fL Normal 82.0-98.[address] [facility] Comment on above: Order Comment: No: D o not add to previous draw Performed By: #### 3 5199, 47747 #### [facility] [address] [place] [address], [facility] Nucleated RBC/100 WBC (Bld) [Ratio] 0 % Normal 0-[address] [facility] Comment on above: Order Comment: No: D o not add to previous draw Performed By: #### 3 5199, 41397 #### [facility] [address] [place] [address], [facility] PLAT CNT 219 10*3/uL Normal 150-[address] [facility] Comment on above: Order Comment: No: D o not add to previous draw Performed By: #### 3 5199, 22930 #### [facility] [address] [place] [id number], [facility] RBC (Bld) [#/Vol] 3.77 10*6/uL Low 3.80-5.[address] [facility] Comment on above: Order Comment: No: D o not add to previous draw Performed By: #### 3 5199, 93395 #### [facility] [address] [place] [address], [facility] WBC (Bld) [#/Vol] 13.64 10*3/uL High 4.00-10.[address] [facility] Comment on above: Order Comment: No: D o not add to previous draw Performed By: #### 3 5200, 15913 #### [facility] [address] [place] [address], [facility] HEMOGLOBIN A1Con 11-02-2021 Glucose [Moles/Vol] 140 mmol/L Normal [facility] Comment on above: Order Comment: No: D o not add to previous draw Performed By: #### 3 1791 #### [facility] [address] [facility] [place] [address], [facility] HbA1c (Bld) [Mass fraction] 6.5 % High 4.0-6.[address] [facility] Comment on above: Order Comment: No: D o not add to previous draw Performed By: #### 3 1791 #### [facility] [address] [place] [address], [facility] LIPID PROFILEon 11-02-2021 Cholesterol [Mass/Vol] 171 mg/dL Normal 120-[address] [facility] Comment on above: Order Comment: No: D o not add to previous draw Result Comment: CHOL ESTEROL REFERENCE RANGE: 20 YEARS AND OLDER CARDIOVASCULAR RISK Less than 200 mg/dl Low Risk 200 to 239 mg/dl Borderline Risk 240 mg/dl and greater High Risk Performed By: #### 3 5200, 59651 #### [facility] [address] [place] [address], [facility] Cholesterol in HDL [Mass/Vol] 57 mg/dL Normal 23-[address] [facility] Comment on above: Order Comment: No: D o not add to previous draw Result Comment: Slig ht variation in normal range could be due to gender and/or age. HDL CHOLESTEROL REFERENCE RANGE: 20 years and older Cardiovascular Risk > or =60 mg/dL Desirable 40 TO 59 mg/dL Low Risk <40 mg/dL High Risk Performed By: #### 3 5200, 77651 #### [facility] [address] [place] [address], [facility] Cholesterol in LDL [Mass/Vol] 89 mg/dL Normal 0-[address] [facility] Comment on above: Order Comment: No: D o not add to previous draw Result Comment: LDL IS A CALCULATION LDL IS ONLY VALID IF THE TRIG IS LESS THAN 400. Performed By: #### 3 5200, 53351 #### [facility] [address] [place] [address], [place] Cholesterol.total/Chol esterol in HDL [Mass ratio] 3.0 {ratio} Normal .0-4.[address] [facility] Comment on above: Order Comment: No: D o not add to previous draw Performed By: #### 3 5200, 64205 #### [facility] [address] [place] [address], [facility] NON-HDL CHOLESTEROL 114 mg/dL Normal [facility] Comment on above: Order Comment: No: D o not add to previous draw Performed By: #### 3 5200, 40354 #### [facility] [address] [place] [address], [facility] Triglyceride [Mass/Vol] 124 mg/dL Normal 40-[address] [facility] Comment on above: Order Comment: No: D o not add to previous draw Result Comment: TRIG LYCERIDE REFERENCE RANGE: 20 YEARS AND OLDER CARDIOVASCULAR RISK LESS THAN 150 mg/dl LOW RISK 150 TO 199 mg/dl BORDERLINE RISK 200 mg/dl AND GREATER HIGH RISK Performed By: #### 3 5200, 13730 #### [facility] [address] [place] [address], [place] VLDL CHOL 25 mg/dL Normal 0-[address] [facility] Comment on above: Order Comment: No: D o not add to previous draw Performed By: #### 3 5200, 34100 #### [facility] [address] [place] [address], [place] TROPONIN-Ion 11-02-2021 Troponin I.cardiac [Mass/Vol] 0.14 ng/mL Critically high 0.00-0.[address] [facility] Comment on above: Result Comment: M-NH EVIOUS CRITICAL RESULT REFERENCE RANGES: 0.00 - 0.04 ng/ml NORMAL 0.05 - 0.50 ng/ml INDETERMINATE > 0.50 ng/ml CONSISTENT WITH AN M.I. Performed By: #### 3 5200, 51288 #### [facility] [address] Troponin I.cardiac [Mass/Vol] 0.19 ng/mL Critically high 0.00-0.[address] [facility] Comment on above: Order Comment: No: D o not add to previous draw Result Comment: M-NH EVIOUS CRITICAL RESULT REFERENCE RANGES: 0.00 - 0.04 ng/ml NORMAL 0.05 - 0.50 ng/ml INDETERMINATE > 0.50 ng/ml CONSISTENT WITH AN M.I. Performed By: #### 3 5200 #### [facility] [address] [facility]. [address] TYPE AND SCREENon 11-02-2021 ABO INTERPRETATION O Normal [facility] Comment on above: Performed By: #### 3 5200, 39067 #### [facility] [address] [facility]. [address] RH INTERPRETATION Positive Normal [facility] Comment on above: Performed By: #### 3 5200, 74157 #### [facility] [address] [facility]. [address] UFH HEPARIN ASSAYon 11-03-19 22 UNFRACTIONATED HEPARIN 0.76 IU/mL High 0.30-0.[address] [facility] Comment on above: Result Comment: Clare roxaban and Apixaban will interfere with the anti Xa assay used to monitor UFH and LMWH. Performed By: #### 3 5200, 85912 #### [facility] [address] UNFRACTIONATED HEPARIN 0.96 IU/mL Critically high 0.30-0.7 0 [facility] Comment on above: Result Comment: Resu lt checked and called. Accurately read back by Kathy Suárez RN at 0548 Rivaroxaban and Apixaban will interfere with the anti Xa assay used to monitor UFH and LMWH. Performed By: #### 3 0477 #### [facility] [address] [facility]. [address] APTTon 11-01-2021 aPTT Coag (Bld) [Time] 28.6 s Normal 25.0-35.[address] [facility] Comment on above: Order Comment: No: [...] THIS PURPOSE. Performed By: #### 3 5200, 36528 #### [facility] [address] [facility] [place] [address], [facility] BNPon 11-01-2021 Natriuretic peptide B (Bld) [Mass/Vol] 9643.0 pg/mL Critically high <=900.0 [facility] Comment on above: Performed By: #### C MP, BNP, HSTROPN ####[facility] [address] [place] [address]DrShaun Yañez BNP (B-TYPE NATRIURETIC PEPT AYLEEN)on 11-01-2021 Natriuretic peptide B (Bld) [Mass/Vol] 768 pg/mL High 0-[address] [facility] Comment on above: Order Comment: No: D o not add to previous draw Result Comment: Give n the appropriate clinical setting a BNP result of >100 pg/mL indicates congestive heart failure. Performed By: #### 8 5123 #### [facility] [address] [facility] [place] [address], [facility] CBC AUTO DIFFon 11-01-2021 BASO # 0.0 103/ul Normal 0.0-0.1 [facility] Comment on above: Performed By: #### C BC ####[facility] [address] [place], [place] [address]Dr. Nahed Yañez Basophils/100 WBC (Bld) 0.1 % Critically low 0.2-2.0 [facility] Comment on above: Performed By: #### C BC ####[facility] [address] [place], [place] [address]Dr. Nahed Yañez EO # 0.0 103/ul Normal 0.0-0.7 [facility] Comment on above: Performed By: #### C BC ####[facility] [address] [place], [place] [address]Dr. Nahed Yañez Eosinophils/100 WBC (Bld) 0.0 % Critically low 0.9-7.0 [facility] Comment on above: Performed By: #### C BC ####[facility] [address] [place], [place] [address]Dr. Nahed Yañez Erythrocyte distribution width (RBC) [Ratio] 14.7 % Normal 11.0-15.0 [facility] Comment on above: Performed By: #### C BC ####[facility] [address] [place], [place] [address]Dr. Nahed Yañez Hematocrit (Bld) [Volume fraction] 36.1 % Normal 36.0-48.0 [facility] Comment on above: Performed By: #### C BC ####[facility] [address] [place], [place] [address]Dr. Nahed Yañez Hemoglobin (Bld) [Mass/Vol] 11.1 g/dL Critically low 12.0-16.[address] [facility] Comment on above: Result Comment: IV a ntibiotics Performed By: #### C BC ####[facility] [address] [place], [place] [address]Dr. Nahed Yañez IG # 0.09 10e3/ul Critically high 0.00-0.03 [facility] Comment on above: Performed By: #### C BC ####[facility] [address] [place], [place] [address]Dr. Nahed Yañez IG % 0.7 % Critically high 0.0-0.5 [facility] Comment on above: Performed By: #### C BC ####[facility] [address] [place] [address]Dr. Nahed Yañez LYMPH # 0.6 103/ul Critically low 1.2-3.8 [facility] Comment on above: Performed By: #### C BC ####[facility] [address] [place] [address]Dr. Nahed Yañez Lymphocytes/100 WBC (Bld) 4.8 % Critically low 20.5-60.[address] [facility] Comment on above: Performed By: #### C BC ####[facility] [address] [place] [address]Dr. Nahed Yañez MANUAL DIFF REQ NO Normal [facility] Comment on above: Performed By: #### C BC ####[facility] [address] [place] [address]Dr. Nahed Otilio MCH (RBC) [Entitic mass] 28.2 pg Normal 26.7-34.[address] [facility] Comment on above: Performed By: #### C BC ####[facility] [address] [place] [address]Dr. Nahed Yañez MCHC (RBC) [Mass/Vol] 30.7 g/dL Normal 29.9-35.[address] [facility] Comment on above: Performed By: #### C BC ####[facility] [address] [place] [address]Dr. Nahed Yañez MCV (RBC) [Entitic vol] 91.9 fL Normal 81.0-99.[address] [facility] Comment on above: Performed By: #### C BC ####[facility] [address] [place] [address]Dr. Nahed Yañez MONO # 0.2 103/ul Critically low 0.3-0.8 [facility] Comment on above: Performed By: #### C BC ####[facility] [address] [place] [address]Dr. Nahed Yañez Monocytes/100 WBC (Bld) 1.7 % Normal 1.7-12.[address] [facility] Comment on above: Performed By: #### C BC ####[facility] [address] [place] [address]Dr. Nahed Yañez NEUT # 11.2 103/ul Critically high 1.4-6.5 [facility] Comment on above: Performed By: #### C BC ####[facility] [address] [place] [address]Dr. Nahed Yañez Neutrophils/100 WBC (Bld) 92.7 % Critically high 43.0-75.[address] [facility] Comment on above: Performed By: #### C BC ####[facility] [address] [place] [address]Dr. Nahed Yañez Platelet mean volume (Bld) [Entitic vol] 11.1 fL Normal 9.5-13.[address] [facility] Comment on above: Performed By: #### C BC ####[facility] [address] [place] [address]Dr. Nahed Yañez PLT 213 103/ul Normal 150-[address] [facility] Comment on above: Performed By: #### C BC ####[facility] [address] [place] [address]Dr. Nahed Yañez RBC 3.93 106/ul Critically low 4.20-5.40 [facility] Comment on above: Performed By: #### C BC ####[facility] [address]awvt[address] [place] [address]Dr. Nahed Yañez WBC 12.0 103/ul Critically high 4.0-11.0 [facility] Comment on above: Performed By: #### C BC ####[facility] [address] [place] [address]Dr. Nahed Yañez CBC W/DIFFon 11-01-2021 ABS IMM GRANS 0.2 10*3/uL Normal 0.0-0.[address] [facility] Comment on above: Order Comment: No: D o not add to previous draw Performed By: #### 3 7240, 10224 #### [facility] [address] [place] [address], [facility] ABS NEUTROPHILS 12.5 10*3/uL High 1.6-7.[address] [facility] Comment on above: Order Comment: No: D o not add to previous draw Performed By: #### 3 0, 97729 #### [facility] [address] [place] [address], [place] Basophils (Bld) [#/Vol] 0.0 10*3/uL Normal 0.0-0.[address] [facility] Comment on above: Order Comment: No: D o not add to previous draw Performed By: #### 3 5199, 00258 #### [facility] [address] [place] [address], [place] Basophils/100 WBC (Bld) 0.0 % Normal 0.0-1.[address] [facility] Comment on above: Order Comment: No: D o not add to previous draw Performed By: #### 3 5199, 22247 #### [facility] [address] [place] [address], [place] Eosinophils (Bld) [#/Vol] 0.0 10*3/uL Normal 0.0-0.[address] [facility] Comment on above: Order Comment: No: D o not add to previous draw Performed By: #### 3 5199, 65660 #### [facility] [address] [place] [address], [place] Eosinophils/100 WBC (Bld) 0.0 % Normal 0.0-6.[address] [facility] Comment on above: Order Comment: No: D o not add to previous draw Performed By: #### 3 5199, 46967 #### [facility] [address] [place] [address], [place] Erythrocyte distribution width (RBC) [Ratio] 14.6 % Normal 11.5-15.[address] [facility] Comment on above: Order Comment: No: D o not add to previous draw Performed By: #### 3 0, 59442 #### [facility] [address] [place] [address], [facility] Hematocrit (Bld) [Volume fraction] 36.6 % Normal 36.0-45.[address] [facility] Comment on above: Order Comment: No: D o not add to previous draw Performed By: #### 3 5199, 26341 #### [facility] [address] [place] [address], [facility] Hemoglobin (Bld) [Mass/Vol] 11.4 g/dL Low 12.0-15.[address] [facility] Comment on above: Order Comment: No: D o not add to previous draw Performed By: #### 3 5199, 16752 #### [facility] [address] [place] [address], [facility] IMMATURE GRANS 1.2 % High 0.0-1.[address] [facility] Comment on above: Order Comment: No: D o not add to previous draw Performed By: #### 3 5199, 50197 #### [facility] [address] [facility] [place] [address], [facility] Lymphocytes (Bld) [#/Vol] 0.6 10*3/uL Low 1.2-4.[address] [facility] Comment on above: Order Comment: No: D o not add to previous draw Performed By: #### 3 5199, 69224 #### [facility] [address] [place] [address], [facility] Lymphocytes/100 WBC (Bld) 4.2 % Low 20.0-45.[address] [facility] Comment on above: Order Comment: No: D o not add to previous draw Performed By: #### 3 5199, 69496 #### [facility] [address] [place] [id number], [facility] MCH (RBC) [Entitic mass] 28.2 pg Normal 27.0-33.[address] [facility] Comment on above: Order Comment: No: D o not add to previous draw Performed By: #### 3 5200, 56351 #### [facility] [address] [place] [address], [facility] MCHC (RBC) [Mass/Vol] 31.1 g/dL Low 32.0-35.[address] [facility] Comment on above: Order Comment: No: D o not add to previous draw Performed By: #### 3 5199, 08010 #### [facility] [address] [place] [address], [facility] MCV (RBC) [Entitic vol] 90.6 fL Normal 82.0-98.[address] [facility] Comment on above: Order Comment: No: D o not add to previous draw Performed By: #### 3 5199, 88583 #### [facility] [address] [place] [address], [facility] Monocytes (Bld) [#/Vol] 0.5 10*3/uL Normal 0.1-1.[address] [facility] Comment on above: Order Comment: No: D o not add to previous draw Performed By: #### 3 5199, 40633 #### [facility] [address] [place] [id number], [facility] MONOS 3.3 % Low 5.0-12.[address] [facility] Comment on above: Order Comment: No: D o not add to previous draw Performed By: #### 3 5199, 10882 #### [facility] [address] [place] [address], [place] Neutrophils/100 WBC (Bld) 91.3 % High 40.0-72.[address] [facility] Comment on above: Order Comment: No: D o not add to previous draw Performed By: #### 3 5199, 88022 #### [facility] [address] [place] [address], [place] Nucleated RBC/100 WBC (Bld) [Ratio] 0 % Normal 0-[address] [facility] Comment on above: Order Comment: No: D o not add to previous draw Performed By: #### 3 5200, 31903 #### [facility] [address] [place] [id number], [facility] PLAT CNT 224 10*3/uL Normal 150-[address] [facility] Comment on above: Order Comment: No: D o not add to previous draw Performed By: #### 3 5200, 33678 #### [facility] [address] [place] [address], [facility] RBC (Bld) [#/Vol] 4.04 10*6/uL Normal 3.80-5.[address] [facility] Comment on above: Order Comment: No: D o not add to previous draw Performed By: #### 3 0, 05133 #### [facility] [address] [place] [address], [facility] WBC (Bld) [#/Vol] 13.70 10*3/uL High 4.00-10.[address] [facility] Comment on above: Order Comment: No: D o not add to previous draw Performed By: #### 3 5200, 66532 #### [facility] [address] [place] [id number], [facility] COMP METABOLIC PANELon 11-01 Albumin [Mass/Vol] 3.7 g/dL Normal 3.5-5.[address] [facility] Comment on above: Order Comment: No: D o not add to previous draw Performed By: #### 0 0121, 48788, 43924 #### [facility] [address] [place] [id number], [facility] ALKALINE PHOSPH 54 IU/L Normal 34-[address] [facility] Comment on above: Order Comment: No: D o not add to previous draw Performed By: #### 0 0121, 29416, 95860 #### [facility] [address] [place] [address], [place] ALT [Catalytic activity/Vol] 12 U/L Normal 7-[address] [facility] Comment on above: Order Comment: No: D o not add to previous draw Performed By: #### 0 0121, 85071, 44535 #### [facility] [address] [place] [address], [place] AST [Catalytic activity/Vol] 17 U/L Normal 13-[address] [facility] Comment on above: Order Comment: No: D o not add to previous draw Performed By: #### 0 0121, 90453, 93103 #### [facility] [address] [place] [address], [place] Bilirubin [Mass/Vol] 0.3 mg/dL Normal 0.3-1.[address] [facility] Comment on above: Order Comment: No: D o not add to previous draw Performed By: #### 0 0121, 11386, 69525 #### [facility] [address] [place] [address], [place] Calcium [Mass/Vol] 9.4 mg/dL Normal 8.6-10.[address] [facility] Comment on above: Order Comment: No: D o not add to previous draw Performed By: #### 0 0121, 31549, 12665 #### [facility] [address] [place] [address], [place] Chloride [Moles/Vol] 100 mmol/L Normal 98-[address] [facility] Comment on above: Order Comment: No: D o not add to previous draw Performed By: #### 0 0121, 81521, [id number] #### [facility] [address] [place] [address], [place] CO2 [Moles/Vol] 29 mmol/L Normal 21-[address] [facility] Comment on above: Order Comment: No: D o not add to previous draw Performed By: #### 0 0121, 16249, 96672 #### [facility] [address] [place] [address], [place] Creatinine [Mass/Vol] 1.04 mg/dL Normal 0.60-1.[address] [facility] Comment on above: Order Comment: No: D o not add to previous draw Performed By: #### 0 0121, 65334, 96536 #### [facility] [address] [place] [address], [place] eGFR- non- 54 ml/min/1.73sq m Abnormal >[address] [facility] Comment on above: Order Comment: No: D o not add to previous draw Performed By: #### 0 0121, 77891, 16977 #### [facility] [address] [place] [address], [place] GFR/1.73 sq M.predicted among blacks MDRD (S/P/Bld) [Vol rate/Area] mL/min/{1.73_m2} Normal >[address] [facility] Comment on above: Order Comment: No: D o not add to previous draw Performed By: #### 0 0121, 83846, 43385 #### [facility] [address] [place] [address], [place] Glucose [Mass/Vol] 239 mg/dL High 70-[address] [facility] Comment on above: Order Comment: No: D o not add to previous draw Performed By: #### 0 0121, 93172, 73324 #### [facility] [address] [place] [address], [place] Potassium [Moles/Vol] 4.3 mmol/L Normal 3.5-5.[address] [facility] Comment on above: Order Comment: No: D o not add to previous draw Performed By: #### 0 0121, 00660, 29524 #### [facility] [address] [place] [address], [place] Protein [Mass/Vol] 5.6 g/dL Low 6.0-8.[address] [facility] Comment on above: Order Comment: No: D o not add to previous draw Performed By: #### 0 0121, 94068, 82347 #### [facility] [address] [place] [address], [facility] Sodium [Moles/Vol] 139 mmol/L Normal 136-[address] [facility] Comment on above: Order Comment: No: D o not add to previous draw Performed By: #### 0 0121, 21819, 61627 #### [facility] [address] [place] [address], [facility] Urea nitrogen [Mass/Vol] 24 mg/dL Normal 7-[address] [facility] Comment on above: Order Comment: No: D o not add to previous draw Performed By: #### 0 0121, 42682, 59514 #### [facility] [address] [place] [address], [facility] MAGNESIUM BLOODon 11-01-2021 Magnesium [Mass/Vol] 2.0 mg/dL Normal 1.9-2.[address] [facility] Comment on above: Order Comment: No: D o not add to previous draw Performed By: #### 0 0121, 21322, 52121 #### [facility] [address] [place] [address], [facility] PROF 14(COMP METB)on 022 Albumin [Mass/Vol] 3.1 g/dL Critically low 3.4-5.0 [facility] Comment on above: Performed By: #### C MP, BNP, HSTROPN ####[facility] [address] [place], [place] [address]Ae. Nahed Yañez Albumin/Globulin [Mass ratio] 1.0 {ratio} Normal [facility] Comment on above: Performed By: #### C MP, BNP, HSTROPN ####[facility] Ltvxdnuqfb7074 [place], [place] [address]Nx. Nahed Yañez ALP [Catalytic activity/Vol] 56 U/L Normal 46-116 [facility] Comment on above: Performed By: #### C MP, BNP, HSTROPN ####[facility] Cdgbtikeoz[address] [place] [address]Dr. Nahed Yañez ALT [Catalytic activity/Vol] 19 U/L Normal 14-59 [facility] Comment on above: Performed By: #### C MP, BNP, HSTROPN ####[facility] O[address]inayz[address] [place] [address]Dr. Nahed Yañez Anion gap [Moles/Vol] 14.3 mmol/L Normal Th [facility] Comment on above: Performed By: #### C MP, BNP, HSTROPN ####[facility] Y[address]feknx[address] [place], [place] [address]Dr. Nahed Yañez AST [Catalytic activity/Vol] 18 U/L Normal 15-37 [facility] Comment on above: Performed By: #### C MP, BNP, HSTROPN ####[facility] Hfwprdnpli[address] [place], [place] [address]Dr. Nahed Yañez Bilirubin [Mass/Vol] 0.4 mg/dL Normal 0.2-1.0 [facility] Comment on above: Performed By: #### C MP, BNP, HSTROPN ####[facility] Rnvzeaseqr[address] [place], [place] [address]Dr. Nahed Yañez Calcium [Mass/Vol] 9.3 mg/dL Normal 8.5-10.1 [facility] Comment on above: Performed By: #### C MP, BNP, HSTROPN ####[facility] [address]wjracw[address] [place], [place] [address]Dr. Nahed Yañez Chloride [Moles/Vol] 102 mmol/L Normal 98-107 [facility] Comment on above: Performed By: #### C MP, BNP, HSTROPN ####[facility] K[address]ifnldyk[address] [place], [place] [address]Dr. Nahed Yañez CO2 [Moles/Vol] 27.1 mmol/L Normal 21.0-32.0 [facility] Comment on above: Performed By: #### C MP, BNP, HSTROPN ####[facility] Qncvqdumkr[address] [place] [address]Dr. Nahed Yañez Creatinine [Mass/Vol] 1.25 mg/dL Critically high 0.55-1.02 [facility] Comment on above: Performed By: #### C MP, BNP, HSTROPN ####[facility] [address]wmhonfmzd[address] [place] [address]Dr. Nahed Yañez EGFR-AF MONTSERRATIAN 53 mL/min/1.73m2 Critically low >=60 [facility] Comment on above: Performed By: #### C MP, BNP, HSTROPN ####[facility] [address]exhcs[address] [place], [place] [address]Dr. Nahed Yañez EGFR-NON AF MONTSERRATIAN 44 mL/min/1.73m2 Critically low >=60 [facility] Comment on above: Performed By: #### C MP, BNP, HSTROPN ####[facility] Cjlozrgauv[address] [place], [place] [address]Dr. Nahed Yañez Globulin (S) [Mass/Vol] 3.2 g/dL Normal [facility] Comment on above: Performed By: #### C MP, BNP, HSTROPN ####[facility] Lmaspmtpix[address] [place], [place] [address]Dr. Nahed Yañez Glucose [Mass/Vol] 248 mg/dL Critically high 74-106 [facility] Comment on above: Performed By: #### C MP, BNP, HSTROPN ####[facility] Cwoquuxme[address] [place], [place] [address]Dr. Nahed Yañez Potassium [Moles/Vol] 3.4 mmol/L Critically low 3.5-5.1 [facility] Comment on above: Performed By: #### C MP, BNP, HSTROPN ####[facility] Qmm[address]zud[address] [place], [place] [address]Dr. Nahed Yañez Protein [Mass/Vol] 6.3 g/dL Critically low 6.4-8.2 Th [facility] Comment on above: Performed By: #### C MP, BNP, HSTROPN ####[facility] Sckkmomsxb[address] [place], [place] [address]Dr. Nahed Yañez Sodium [Moles/Vol] 140 mmol/L Normal 136-145 [facility] Comment on above: Performed By: #### C MP, BNP, HSTROPN ####[facility] Wedlrxzwxn[address] [place] [address]Dr. Nahed Yañez Urea nitrogen [Mass/Vol] 18.0 mg/dL Normal 7.0-18.0 [facility] Comment on above: Performed By: #### C MP, BNP, HSTROPN ####[facility] [address]corf[address] [place] [id number]. Nahed Yañez Urea nitrogen/Creatinine [Mass ratio] 14.4 mg/mg Normal [facility] Comment on above: Performed By: #### C MP, BNP, HSTROPN ####[facility] Ses[address]ptocux[address] [place] [address]Dr. Nahed Yañez PROTHROMBIN TIMEon 2 INR Coag (PPP) [Relative time] 1.06 {INR} Normal 0.91-1.16 [facility] Comment on above: Order Comment: No: [...] 1995;[id number]. Performed By: #### 5 6101 #### [facility] [address] [place] [address], [facility] PT Coag (PPP) [Time] 13.8 s Normal 12.3-14.8 [facility] Comment on above: Order Comment: No: D o not add to previous draw Result Comment: ALL RESULTS MUST BE INTERPRETED WITH RESPECT TO BLOOD DRAWING ARTIFACT OR DILUTION ERROR OF ANTICOAGULANT AT THE TIME OF SAMPLING. Performed By: #### 5 6101 #### [facility] [address] [facility] [place] [address], [facility] TROPONIN, HIGH SENSITIVITYon 11-01-2021 HSTROP 1684.4 pg/mL Critically high 4.0-51.3 [facility] Comment on above: Result Comment: CUT- OFF POINTS HAVE BEEN ESTABLISHED BASED ON THE FOURTH UNIVERSAL DEFINITIONS OF MYOCARDIALINFARCTION. THE UPPER REFERENCE LIMIT (URL) OF TROPONIN, DEFINED THE 99TH PERCENTILE OFcTnI DISTRIBUTION IN A REFERENCE POPULATION, HAS BEEN CONFIRMED THE DECISION THRESHOLDFOR [place] DIAGNOSIS. Performed By: #### C MP, BNP, HSTROPN ####[facility] K[address]lb[address] [place] [address]DrShaun Yañez TROPONIN-Ion 11-01-2021 Troponin I.cardiac [Mass/Vol] 0.22 ng/mL Critically high 0.00-0.[address] [facility] Comment on above: Order Comment: No: D o not add to previous draw Result Comment: M-TR OPONIN INITIAL CRITICAL HIGH; RESPUN AND RETESTED M-CRITICAL RESULT(S) REVIEWED, CALLED TO AND READ BACK BY Kathy Suárez RN at 2205. REFERENCE RANGES: 0.00 - 0.04 ng/ml NORMAL 0.05 - 0.50 ng/ml INDETERMINATE > 0.50 ng/ml CONSISTENT WITH AN M.I. Performed By: #### 0 0121, 32866, 39627 #### [facility] [address] [facility] [place] [address], [facility] UFH HEPARIN ASSAYon 11-02-19 UNFRACTIONATED HEPARIN 0.55 IU/mL Normal 0.30-0.[address] [facility] Comment on above: Result Comment: Clare roxaban and Apixaban will interfere with the anti Xa assay used to monitor UFH and LMWH. Performed By: #### 3 5200, 04747 #### [facility] [address] [place] [address], [facility] BLOOD GASES BTYon 10-31-2021 02 MODE ROOM AIR Normal [facility] Comment on above: Performed By: #### A BG ####[facility] Q[address]jvisb[address] [place], [place] [address]Dr. Nahed Yañez ALLENS TEST Positive Normal [facility] Comment on above: Performed By: #### A BG ####[facility] Zitviinidt0[address] [place], [place] [address]Dr. Nahed Yañez Base excess Calc (Bld) [Moles/Vol] 3.5 mmol/L Critically high -2.0-2.0 [facility] Comment on above: Performed By: #### A BG ####[facility] Wwhoozwvkm[address] [place], [place] [address]Dr. Nahed Yañez BIPAP PRESSURE Normal [facility] Comment on above: Performed By: #### A BG ####[facility] Bznpinwazv[address] [place], [place] [address]Dr. Nahed Yañez CO2 [Moles/Vol] 56.3 mmol/L Critically high 23.0-28.0 [facility] Comment on above: Performed By: #### A BG ####[facility] Tch[address]cbfp[address] [place], [place] [address]Dr. Nahed Yañez CPAP Normal [facility] Comment on above: Performed By: #### A BG ####[facility] Bjmlvbpbmh94[address] [place], [place] [address]Dr. Nahed Yañez FIO2 Normal [facility] Comment on above: Performed By: #### A BG ####[facility] I[address]jlpjxqs[address] [place], [place] [address]Dr. Nahed Yañez HCO3 (Bld) [Moles/Vol] 26.8 mmol/L Critically high 22.0-26 .0 [facility] Comment on above: Performed By: #### A BG ####[facility] [address] [place] [address]Dr. Nahed Yañez LPM Normal [facility] Comment on above: Performed By: #### A BG ####[facility] Gr[address]gyelmsw[address] [place] [address]Dr. Nahed Yañez MINUTE VOLUME Normal [facility] Comment on above: Performed By: #### A BG ####[facility] Rwmeuqsvxo9308 [place] [address]Dr. Nahed Yañez Oxygen (Bld) [Partial pressure] 51.8 mm[Hg] Critically low 80.0-100.0 [facility] Comment on above: Performed By: #### A BG ####[facility] Eutifbyurj66[address] [place], [place] [address]Dr. Nahed Yañez Oxygen saturation in Blood 86.3 % Critically low 95.0-100.0 [facility] Comment on above: Performed By: #### A BG ####[facility] Roludblbpc9[address] [place], [place] [address]Dr. Nahed Yañez PCO2 43.8 mmHg Normal 35.0-45.0 [facility] Comment on above: Performed By: #### A BG ####[facility] Yrcmqdwoww[address] [place], [place] [address]Dr. Nahed Yañez PEEP [facility] Comment on above: Performed By: #### A BG ####[facility] Ngligcjqsx4[address] [place], [place] [address]Dr. Nahed Yañez pH (Bld) 7.415 [pH] Normal 7.350-7.450 [facility] Comment on above: Performed By: #### A BG ####[facility] Jqri[address]reszf[address] [place], [place] [address]Dr. Nahed Yañez PIP Baltic [facility] Comment on above: Performed By: #### A BG ####[facility] Emavlgssed9[address] [place], [place] [address]Dr. Nahed Yañez PS [facility] Comment on above: Performed By: #### A BG ####[facility] [address] [place] [address]Hs. Nahed Yañez PUNCTURE SITE RR Normal [facility] Comment on above: Performed By: #### A BG ####[facility] Rbyscrrnez[address] [place] [address]Dr. Nahed Yañez RATE Normal [facility] Comment on above: Performed By: #### A BG ####[facility] Kblabghxez[address] [place] [address]Dr. Nahed Yañez VENT MODE Normal [facility] Comment on above: Performed By: #### A BG ####[facility] Byhamomqor5348 [place] [address]Dr. Nahed Yañez VT Normal [facility] Comment on above: Performed By: #### A BG ####[facility] Taavdrjjiy46[address] [place] [address]Dr. Nahed Yañez BNPon 2 Natriuretic peptide B (Bld) [Mass/Vol] 16434.0 pg/mL Critically high <=900.0 [facility] Comment on above: Performed By: #### T 4, TSH, BNP, CMADM ####[facility] Jbcsmafcer24[address] [place] [address]Dr. Nahed Yañez CARDIAC FRANCISCO 3-6on 2 CK [Catalytic activity/Vol] 91 U/L Normal 26-192 [facility] Comment on above: Performed By: #### C MREP ####[facility] Xkfaqfwqto5089 [place] [address]Dr. Nahed Yañez CK.MB [Mass/Vol] 7.32 ng/mL Critically high <=3.60 [facility] Comment on above: Result Comment: test repeated critical value verified Performed By: #### C MREP ####[facility] Nbljdritan24[address] [place], [place] [address]Dr. Nahed Yañez HSTROP 2823.1 pg/mL Critically high 4.0-51.3 [facility] Comment on above: Result Comment: CUT- OFF POINTS HAVE BEEN ESTABLISHED BASED ON THE FOURTH UNIVERSAL DEFINITIONS OF MYOCARDIALINFARCTION. THE UPPER REFERENCE LIMIT (URL) OF TROPONIN, DEFINED THE 99TH PERCENTILE OFcTnI DISTRIBUTION IN A REFERENCE POPULATION, HAS BEEN CONFIRMED THE DECISION THRESHOLDFOR [place] DIAGNOSIS.test repeated critical value verified Performed By: #### C MREP ####[facility] Jfxvocuefx24[address] [place] [address]Dr. Nahed Yañez CARDIAC FRANCISCO ADMITon 022 CK [Catalytic activity/Vol] 85 U/L Normal 26-[address] [facility] Comment on above: Performed By: #### T 4, TSH, BNP, CMADM ####[facility] Fonhfzuzpq67[address] [place] [address]Dr. Nahed Yañez CK.MB [Mass/Vol] 6.44 ng/mL Critically high <=3.[address] [facility] Comment on above: Performed By: #### T 4, TSH, BNP, CMADM ####[facility] Uqpltvfmxg8[address] [place] [address]Dr. Nahed Yañez HSTROP 3194.8 pg/mL Critically high 4.0-51.3 [facility] Comment on above: Result Comment: CUT- OFF POINTS HAVE BEEN ESTABLISHED BASED ON THE FOURTH UNIVERSAL DEFINITIONS OF MYOCARDIALINFARCTION. THE UPPER REFERENCE LIMIT (URL) OF TROPONIN, DEFINED THE 99TH PERCENTILE OFcTnI DISTRIBUTION IN A REFERENCE POPULATION, HAS BEEN CONFIRMED THE DECISION THRESHOLDFOR [place] DIAGNOSIS. Performed By: #### T 4, TSH, BNP, CMADM ####[facility] Bcdcafdbyj[address] [place] [address]Dr. Nahed Yañez ANDRE 57 ng/mL Normal 9-[address] [facility] Comment on above: Performed By: #### T 4, TSH, BNP, CMADM ####[facility] Cpbaqxeulh8609 [place] [address]Dr. Nahed Yañez CBC AUTO DIFFon 10-31-2021 BASO # 0.0 103/ul Normal 0.0-0.1 [facility] Comment on above: Performed By: #### C BC ####[facility] Dyjomowfww[address] [place] [address]Dr. Nahed Yañez Basophils/100 WBC (Bld) 0.2 % Normal 0.2-2.[address] [facility] Comment on above: Performed By: #### C BC ####[facility] V[address]mpwdt14[address] [place] [id number]. Nahed Yañez EO # 0.0 103/ul Normal 0.0-0.7 [facility] Comment on above: Performed By: #### C BC ####[facility] Dqkzudoflv2712 [place] [address]Dr. Nahed Yañez Eosinophils/100 WBC (Bld) 0.1 % Critically low 0.9-7.0 [facility] Comment on above: Performed By: #### C BC ####[facility] Fnlfprxpqj[address] [place], [place] [address]Dr. Nahed Yañez Erythrocyte distribution width (RBC) [Ratio] 14.8 % Normal 11.0-15.0 [facility] Comment on above: Performed By: #### C BC ####[facility] Eabodgtcas[address] [place], [place] [address]Dr. Nahed Yañez Hematocrit (Bld) [Volume fraction] 44.4 % Normal 36.0-48.0 [facility] Comment on above: Performed By: #### C BC ####[facility] Pec[address]rodzj[address] [place], [place] [address]Dr. Nahed Yañez Hemoglobin (Bld) [Mass/Vol] 14.1 g/dL Normal 12.0-16.0 [facility] Comment on above: Performed By: #### C BC ####[facility] Kuunbjccht[address] [place], [place] [address]Dr. Nahed Yañez IG # 0.04 10e3/ul Critically high 0.00-0.03 [facility] Comment on above: Performed By: #### C BC ####[facility] Kcwnwfchxd5[address] [place], [place] [address]Dr. Nahed Yañez IG % 0.3 % Normal 0.0-0.5 [facility] Comment on above: Performed By: #### C BC ####[facility] Qasuizcghj[address] [place], [place] [address]Dr. Nahed Yañez LYMPH # 1.4 103/ul Normal 1.2-3.[address] [facility] Comment on above: Performed By: #### C BC ####[facility] Hrpxefkeis5[address] [place] [id number]. Nahed Yañez Lymphocytes/100 WBC (Bld) 10.4 % Critically low 20.5-60.0 [facility] Comment on above: Performed By: #### C BC ####[facility] Fnavlkvbjv7[address] [place] [phone]. Rosemarieashley Yañez MANUAL DIFF REQ NO Normal [facility] Comment on above: Performed By: #### C BC ####[facility] Kvdnkcfjmt9421 [place] [id number]. Nahed Otilio MCH (RBC) [Entitic mass] 28.1 pg Normal 26.7-34.0 [facility] Comment on above: Performed By: #### C BC ####[facility] Tjwiuxmzsp7[address] [place], [place] [address]Dr. Nahed Otilio MCHC (RBC) [Mass/Vol] 31.8 g/dL Normal 29.9-35.[address] [facility] Comment on above: Performed By: #### C BC ####[facility] Wklgbcpzbg6014 [place] [id number]. Nahed Otilio MCV (RBC) [Entitic vol] 88.4 fL Normal 81.0-99.0 [facility] Comment on above: Performed By: #### C BC ####[facility] Spvitgkuul[address] [place], [place] [address]Dr. Rosemarieashley Otilio MONO # 0.8 103/ul Normal 0.3-0.[address] [facility] Comment on above: Performed By: #### C BC ####[facility] [address] [place], [place] [id number]. Nahed Yañez Monocytes/100 WBC (Bld) 6.0 % Normal 1.7-12.[address] [facility] Comment on above: Performed By: #### C BC ####[facility] U[address]efunblg[address] [place], [place] [address]Dr. Nahed Yañez NEUT # 10.9 103/ul Critically high 1.4-6.5 [facility] Comment on above: Performed By: #### C BC ####[facility] Pybgxjuugr8441 [place] [id number]. Nahed Yañez Neutrophils/100 WBC (Bld) 83.0 % Critically high 43.0-75.0 [facility] Comment on above: Performed By: #### C BC ####[facility] Kuucyxvcfs3396 [place] [id number]. Nahed Yañez Platelet mean volume (Bld) [Entitic vol] 10.8 fL Normal 9.5-13.5 [facility] Comment on above: Performed By: #### C BC ####[facility] Kxaottgglz5965 [place] [address]Dr. Nahed Yañez PLT 402 103/ul Normal 150-450 [facility] Comment on above: Performed By: #### C BC ####[facility] Xioytavdsf[address] [place], [place] [address]Dr. Nahed Yañez RBC 5.02 106/ul Normal 4.20-5.40 [facility] Comment on above: Performed By: #### C BC ####[facility] Chzgoyvvhk[address] [place], [place] [address]Dr. Nahed Yañez WBC 13.1 103/ul Critically high 4.0-11.0 [facility] Comment on above: Performed By: #### C BC ####[facility] [address]oajh[address] [place], [place] [address]Dr. Nahed Yañez CTA CHEST WO W CONon 022 CTA CHEST WO W CON Normal [facility] CULTURE BLOODon 10-31-2021 Microscopic examination of blood, culture Culture Observations: NO GROWTH AT 5 DAYS. Normal [facility] Comment on above: Performed By: #### B LDCX2 ####[facility] Qkfopjinxf13[address] [place], [place] [address]Dr. Nahed Yañez Microscopic examination of blood, culture Culture Observations: NO GROWTH AT 5 DAYS. Normal [facility] Comment on above: Performed By: #### B LDCX1 ####[facility] Ta[address]qnkifm[address] [place], [place] [address]Dr. Nahed Yañez Covid-19 PCR (CVDTBH)on 10-13 SARS-CoV-2 (COVID-19) RNA MIRNA+probe Ql (Unsp spec) Not detected Normal NOT DETECTED [facility] Comment on above: Result Comment: When [...] for this test is supported by the [place] of Health and Human Service's declaration that [...] be used). Performed By: #### C VDTB ####[facility] [address]vjqtp[address] [place], [place] [address]Dr. Nahed Yañez ECHO LIMITED STUDYon 022 ECHO LIMITED STUDY Normal [facility] ER URINE PROFILEon 2 Bilirubin Ql (U) SMALL Abnormal NEGATIVE [facility] Comment on above: Performed By: #### YARELIS DOVE ####[facility] Onfzhurhua6[address] [place], [place] [address]Dr. Nahed Yañez Clarity (U) CLEAR Normal CLEAR [facility] Comment on above: Performed By: #### NUNU DOVERO ####[facility] Calmseygdt[address] [place] [address]Dr. Nahed Yañez Color (U) YELLOW Normal YELLOW [facility] Comment on above: Performed By: #### YARELIS DOVE ####[facility] Rmkuomwbtz4614 [place] [address]Dr. Nahed Yañez ERUAHD A micrscopic examination will be performed if indicated. Normal [facility] Comment on above: Performed By: #### NUNU DOVERO ####[facility] Tfosckblfi[address] [place] [address]Dr. Rosemarieashley Yañez Glucose Ql (U) Negative Normal NEGATIVE [facility] Comment on above: Performed By: #### YARELIS DOVE ####[facility] Oxkvfuerss4267 [place] [address]Dr. Nahed Yañez Hemoglobin Ql (U) TRACE-INTACT Abnormal NEGATIVE [facility] Comment on above: Performed By: #### NUNU DOVERO ####[facility] R[address]uib[address]wa[address] [place], [place] [address]Dr. Nahed Yañez Ketones Ql (U) 15 mg/dl Abnormal NEGATIVE [facility] Comment on above: Performed By: #### NUNU DOVERO ####[facility] [address]hgvec[address] [place], [place] [address]Dr. Nahed Yañez LEUKOCYTES TRACE Abnormal NEGATIVE [facility] Comment on above: Performed By: #### NUNU DOVERO ####[facility] Wlfizmbpkb[address] [place], [place] [address]Dr. Nahed Yañez Nitrite Ql (U) Negative Normal NEGATIVE [facility] Comment on above: Performed By: #### NUNU DOVERO ####[facility] Dtecfbdeso38[address] [place], [place] [address]Dr. Nahed Yañez pH (U) 6.5 [pH] Normal 5-[address] [facility] Comment on above: Performed By: #### NUNU DOVERO ####[facility] Delalzloto8[address] [place], [place] [address]Dr. Nahed Yañez Protein (U) [Mass/Vol] 30 mg/dL Abnormal NEGAT JOSEPHINE/ TRACE [facility] Comment on above: Performed By: #### NUNU DOVERO ####[facility] Mbztkmfgea89[address] [place], [place] [address]Dr. Nahed Yañez SPEC GRAVITY 1.025 Normal 1.005-<=1.02 5 [facility] Comment on above: Performed By: #### YARELIS DOVE ####[facility] Dsicydjixt[address] [place] [address]Dr. Nahed Yañez UR MICRO IND INDICATED Normal [facility] Comment on above: Performed By: #### YARELIS DOVE ####[facility] Fluxnpdtov2778 [place] [address]Dr. Nahed Otilio Urobilinogen Qn (U) 0.2 {Alem'U}/dL Normal 0.2 - 1. [address] [facility] Comment on above: Performed By: #### YARELIS DOVE ####[facility] Boxvthcsei3169[address] [place], [place] [address]Dr. Rosemarieashley Otilio INFLUENZA A AND B AGon 10-31 INFLUANEGH SEE BELOW Normal [facility] Comment on above: Result Comment: Nega tive for Flu A protein angiten. Infection due to Flu A cannot be ruled out. Flu A angiten in the sample may be below the detection limit of the test. Performed By: #### I NFLUAB ####[facility] Dekgeejlso2043[address] [place], [place] [address]Dr. Nahed Otilio INFLUBNEGH SEE BELOW Normal [facility] Comment on above: Result Comment: Nega tive for Flu B protein antigen. Infection due to Flu B cannot be ruled out. Flu B antigen in the sample may be below the detection limit of the test. Performed By: #### I NFLUAB ####[facility] Sfluxpkjaa[address] [place], [place] [address]Dr. Rosemarieashley Otilio INFLUENZA A AG Negative Normal NEGATIVE SEE COMMENT [facility] Comment on above: Performed By: #### I NFLUAB ####[facility] Rixveepuwo44[address] [place], [place] [address]Dr. Nahed Yañez INFLUENZA B AG Negative Normal NEGATIVE SEE COMMENT [facility] Comment on above: Performed By: #### I NFLUAB ####[facility] Eacjbzrwiz959[address] [place], [place] [address]Dr. Rosemarieashley Otilio INTERNAL CONTROLS Within Normal Limits Normal Wi thin Normal Limits [facility] Comment on above: Performed By: #### I NFLUAB ####[facility] Yalvflbzck[address] [place] [address]Dr. Nahed Yañez LACTATE/LACTIC ACIDon 2021 Lactate [Moles/Vol] 1.3 mmol/L Normal 0.4-1.9 [facility] Comment on above: Performed By: #### L ACT ####[facility] Oavyumclki026[address] [place] [address]Dr. Nahed Yañez PROF 14(COMP METB)on 022 Albumin [Mass/Vol] 4.3 g/dL Normal 3.4-5.0 [facility] Comment on above: Performed By: #### C MP ####[facility] Gbncfbsuol95[address] [place] [address]Dr. Nahed Yañez Albumin/Globulin [Mass ratio] 1.2 {ratio} Normal [facility] Comment on above: Performed By: #### C MP ####[facility] Hepkdhcfii9536[address] [place], [place] [address]Dr. Nahed Yañez ALP [Catalytic activity/Vol] 77 U/L Normal 46-116 [facility] Comment on above: Performed By: #### C MP ####[facility] Oucytkpnxl2284[address] [place], [place] [address]Dr. Nahed Yañez ALT [Catalytic activity/Vol] 25 U/L Normal 14-59 [facility] Comment on above: Performed By: #### C MP ####[facility] Xspdfroguw0934[address] [place], [place] [address]Dr. Nahed Yañez Anion gap [Moles/Vol] 15.6 mmol/L Normal [facility] Comment on above: Performed By: #### C MP ####[facility] Hcyvpsnqud46[address] [place] [address]Dr. Nahed Yañez AST [Catalytic activity/Vol] 26 U/L Normal 15-37 [facility] Comment on above: Performed By: #### C MP ####[facility] Xuhlxbojke7058[address] [place], [place] [address]Dr. Nahed Yañez Bilirubin [Mass/Vol] 0.6 mg/dL Normal 0.2-1.0 [facility] Comment on above: Performed By: #### C MP ####[facility] Jgnztvrhke3733 [place] [address]Dr. Nahed Yañez Calcium [Mass/Vol] 10.0 mg/dL Normal 8.5-10.1 [facility] Comment on above: Performed By: #### C MP ####[facility] Gpodnawrgr4127 [place] [address]Dr. Nahed Yañez Chloride [Moles/Vol] 101 mmol/L Normal 98-107 [facility] Comment on above: Performed By: #### C MP ####[facility] Ibqlmphnuo4551 [place] [address]Dr. Nahed Yañez CO2 [Moles/Vol] 29.0 mmol/L Normal 21.0-32.0 [facility] Comment on above: Performed By: #### C MP ####[facility] Ixhpsoquxe37[address] [place], [place] [address]Dr. Nahed Yañez Creatinine [Mass/Vol] 0.89 mg/dL Normal 0.55-1.02 [facility] Comment on above: Performed By: #### C MP ####[facility] Wvqhjxhmvu[address] [place], [place] [address]Dr. Nahed Yañez EGFR-AF MONTSERRATIAN >60 Normal >=60 [facility] Comment on above: Performed By: #### C MP ####[facility] Krwhloaily184[address] [place], [place] [address]Dr. Nahed Yañez EGFR-NON AF MONTSERRATIAN >60 Normal >=60 [facility] Comment on above: Performed By: #### C MP ####[facility] Qltxcqgbhn1749 [place] [address]Dr. Nahed Yañez Globulin (S) [Mass/Vol] 3.7 g/dL Normal [facility] Comment on above: Performed By: #### C MP ####[facility] Vosjnjwrzj3848 [place] [address]Dr. Nahed Yañez Glucose [Mass/Vol] 182 mg/dL Critically high 74-106 [facility] Comment on above: Performed By: #### C MP ####[facility] Pvxbzrxwfs9[address] [place] [id number]. Nahed Yañez Potassium [Moles/Vol] 3.6 mmol/L Normal 3.5-5.1 [facility] Comment on above: Performed By: #### C MP ####[facility] Tsrpvtjcnr2753 [place] [id number]. Nahed Yañez Protein [Mass/Vol] 8.0 g/dL Normal 6.4-8.[address] [facility] Comment on above: Performed By: #### C MP ####[facility] Gptelhslct6465 [place] [id number]. Nahed Yañez Sodium [Moles/Vol] 142 mmol/L Normal 136-[address] [facility] Comment on above: Performed By: #### C MP ####[facility] Sznsuzljbu7[address] [place], [place] [address]Dr. Nahed Yañez Urea nitrogen [Mass/Vol] 8.0 mg/dL Normal 7.0-18.0 [facility] Comment on above: Performed By: #### C MP ####[facility] Orsxtfmjig6296 [place] [id number]. Nahed Yañez Urea nitrogen/Creatinine [Mass ratio] 9.0 mg/mg Normal [facility] Comment on above: Performed By: #### C MP ####[facility] Notlhmcmds6185 [place] [id number]. Nahed Yañez T4on 10-31-2021 T4 [Mass/Vol] 8.10 ug/dL Normal 4.80-13.90 [facility] Comment on above: Performed By: #### T 4, TSH, BNP, CMADM ####[facility] Csxawoceno4939 [place] [id number]. Nahed Yañez TSHon 10-31-2021 TSH 1.088 uIU/mL Normal 0.358-3.740 [facility] Comment on above: Performed By: #### T 4, TSH, BNP, CMADM ####[facility] Uwyfkldall14[address] [place], [place] [address]Dr. Nahed Yañez URINE MICROSCOPIC ONLYon BACTERIA TRACE Abnormal NONE SEEN [facility] Comment on above: Performed By: #### Isidoro ALCARAZ UMICRO ####[facility] Wywebtzxhq17[address] [place] [address]Dr. Nahed Yañez Bacteria identified Cx Nom (U) NOT INDICATED Normal [facility] Comment on above: Performed By: #### Isidoro ALCARAZ UMICRO ####[facility] Jubddntvce5[address] [place] [address]Dr. Nahed Yañez CAST NONE SEEN Normal NONE SEEN [facility] Comment on above: Performed By: #### Isidoro ALCARAZ UMICRO ####[facility] Zeygrgdgdq1613 [place] [address]Dr. Nahed Yañez Crystals LM Nom (Urine sed) NONE SEEN Normal NONE SEEN [facility] Comment on above: Performed By: #### Isidoro ALCARAZ UMICRO ####[facility] Vayvuegpjk[address] [place], [place] [address]Dr. Nahed Yañez Epithelial cells LM Ql (Urine sed) MODERATE Abnormal NONE SEEN /RARE [facility] Comment on above: Performed By: #### Isidoro ALCARAZ UMICRO ####[facility] Nmcecoljyq97[address] [place], [place] [address]Dr. Nahed Yañez MUCOUS SMALL Abnormal NONE SEEN [facility] Comment on above: Performed By: #### Isidoro ALCARAZ UMICRO ####[facility] Xsfqmivtxj8518 [place] [address]Dr. Nahed Yañez RBC 2-5 Abnormal 0-[address] [facility] Comment on above: Performed By: #### Isidoro ALCRAAZ UMICRO ####[facility] Kpgnabzeql9302 [place] [address]Dr. Nahed Yañez WBC 2-5 Abnormal NONE SEEN [facility] Comment on above: Performed By: #### Isidoro ALCARAZ UMICRO ####[facility] Tfbhcssnvf[address] [place], [place] [address]Dr. Nahed Yañez XR CHEST 2 Von 10-31-2021 XR CHEST 2 V Normal [facility] CULTURE URINEon 10-30-2021 CULTURE URINE Culture Observations : MODERATE GROWTH OF MIXED GENITAL MIGUEL. NO POTENTIAL PATHOGENS SEEN. Normal [facility] Comment on above: Performed By: #### U RCX ####[facility] Qtumxwuubt9546 [place] [address]Dr. Nahed Yañez US JESSEE DOP LEG BILon 022 US JESSEE DOP LEG MOHAN Normal The [facility] CARDIAC FRANCISCO ADMITon 022 CK [Catalytic activity/Vol] 16 U/L Critically low 26-[address] [facility] Comment on above: Performed By: #### C RENZO, CMADM ####[facility] Gsckaypfta9632 [place] [address]Dr. Nahed Yañez CK.MB [Mass/Vol] 0.56 ng/mL Normal <=3.60 [facility] Comment on above: Performed By: #### C RENZO, ERICK ####[facility] Kjbkbonpyn8786 [place] [address]Dr. Nahed Yañez HSTROP 44.3 pg/mL Normal 4.0-51.[address] [facility] Comment on above: Result Comment: CUT- OFF POINTS HAVE BEEN ESTABLISHED BASED ON THE FOURTH UNIVERSAL DEFINITIONS OF MYOCARDIALINFARCTION. THE UPPER REFERENCE LIMIT (URL) OF TROPONIN, DEFINED THE 99TH PERCENTILE OFcTnI DISTRIBUTION IN A REFERENCE POPULATION, HAS BEEN CONFIRMED THE DECISION THRESHOLDFOR AK DIAGNOSIS. Performed By: #### C RENZO, GRISELDADM ####[facility] Eyemxkrwef5720 [place] [address]Dr. Nahed Yañez ANDRE 42 ng/mL Normal 9-[address] [facility] Comment on above: Performed By: #### C RENZO, GRISELDADM ####[facility] Ozjietogyk3800 [place] [address]Dr. Nahed Yañez CBC AUTO DIFFon 09-07-2021 BASO # 0.0 103/ul Normal 0.0-0.[address] [facility] Comment on above: Performed By: #### C BC ####[facility] Yhinmuxwua2444 [place] [address]Dr. Nahed Yañez Basophils/100 WBC (Bld) 0.4 % Normal 0.2-2.[address] [facility] Comment on above: Performed By: #### C BC ####[facility] Yaybanfogd6392 [place] [id number]. Nahed Yañez EO # 0.2 103/ul Normal 0.0-0.[address] [facility] Comment on above: Performed By: #### C BC ####[facility] Ncghjpldsd4162 [place] [phone]. Nahed Yañez Eosinophils/100 WBC (Bld) 2.4 % Normal 0.9-7.[address] [facility] Comment on above: Performed By: #### C BC ####[facility] Czfcldsvup355[address] [place], [place] [address]Dr. Nahed Yañez Erythrocyte distribution width (RBC) [Ratio] 15.1 % Critically high 11.0-15.0 [facility] Comment on above: Performed By: #### C BC ####[facility] Abtfgmoxrr1201[address] [place], [place] [address]Dr. Nahed Yañez Hematocrit (Bld) [Volume fraction] 42.6 % Normal 36.0-48.0 [facility] Comment on above: Performed By: #### C BC ####[facility] Nhoyclatmy8988[address] [place], [place] [address]Dr. Nahed Yañez Hemoglobin (Bld) [Mass/Vol] 13.4 g/dL Normal 12.0-16.[address] [facility] Comment on above: Performed By: #### C BC ####[facility] Gcmloqmqhk2918[address] [place], [place] [address]Dr. Nahed Yañez IG # 0.33 10e3/ul Critically high 0.00-0.03 [facility] Comment on above: Performed By: #### C BC ####[facility] Ykwwpyugxv518[address] [place], [place] [address]Dr. Nahed Yañez IG % 3.9 % Critically high 0.0-0.5 The [facility] Comment on above: Performed By: #### C BC ####[facility] Qcpatwbozn7398[address] [place], [place] [address]Dr. Nahed Yañez LYMPH # 2.6 103/ul Normal 1.2-3.[address] [facility] Comment on above: Performed By: #### C BC ####[facility] Jtcsiuasvp4971 [place] [phone]. Nahed Otilio Lymphocytes/100 WBC (Bld) 30.3 % Normal 20.5-60.0 [facility] Comment on above: Performed By: #### C BC ####[facility] Lewqhnmgvp2301 [place] [phone]. Nahed Yañez MANUAL DIFF REQ NO Normal [facility] Comment on above: Performed By: #### C BC ####[facility] Bsocznmbel9816 [place] [phone]. Nahed Otilio MCH (RBC) [Entitic mass] 28.6 pg Normal 26.7-34.0 [facility] Comment on above: Performed By: #### C BC ####[facility] W[address]mjcapqp[address] [place], [place] [id number]. Nahed Otilio MCHC (RBC) [Mass/Vol] 31.5 g/dL Normal 29.9-35.[address] [facility] Comment on above: Performed By: #### C BC ####[facility] K[address]kkttllv[address] [place], [place] [id number]. Nahed Otilio MCV (RBC) [Entitic vol] 90.8 fL Normal 81.0-99.0 [facility] Comment on above: Performed By: #### C BC ####[facility] Aalbkpwxbc9[address] [place], [place] [address]Dr. Nahed Otilio MONO # 0.7 103/ul Normal 0.3-0.[address] [facility] Comment on above: Performed By: #### C BC ####[facility] Yxcgbofify79[address] [place], [place] [address]Dr. Rosemarieashley Yañez Monocytes/100 WBC (Bld) 8.0 % Normal 1.7-12.[address] [facility] Comment on above: Performed By: #### C BC ####[facility] Uixkyiijww7[address] [place], [place] [address]Dr. Nahed Yañez NEUT # 4.7 103/ul Normal 1.4-6.[address] [facility] Comment on above: Performed By: #### C BC ####[facility] Szayqbwgpw9807 [place] [phone]. Nahed Yañez Neutrophils/100 WBC (Bld) 55.0 % Normal 43.0-75.0 [facility] Comment on above: Performed By: #### C BC ####[facility] Tlsxsstaoj9452 [place] [phone]. Nahed Yañez Platelet mean volume (Bld) [Entitic vol] 8.9 fL Critically low 9.5-13.5 [facility] Comment on above: Performed By: #### C BC ####[facility] Kyhhbakock3874 [place] [phone]. Nahed Yañez PLT 270 103/ul Normal 150-450 [facility] Comment on above: Performed By: #### C BC ####[facility] Lqikxorskm1711 [place] [address]Dr. Nahed Yañez RBC 4.69 106/ul Normal 4.20-5.40 [facility] Comment on above: Performed By: #### C BC ####[facility] Burgyrlzjy6993 [place] [phone]. Nahed Yañez WBC 8.5 103/ul Normal 4.0-11.0 [facility] Comment on above: Performed By: #### C BC ####[facility] Ynmkesrjoy5450 [place] [address]Dr. Nahed Yañez PROF 14(COMP METB)on 022 Albumin [Mass/Vol] 2.7 g/dL Critically low 3.4-5.0 [facility] Comment on above: Performed By: #### C ERICK MULLER ####[facility] Pcefhijjet0956 [place] [address]Dr. Nahed Yañez Albumin/Globulin [Mass ratio] 0.8 {ratio} Normal [facility] Comment on above: Performed By: #### C ERICK MULLER ####[facility] Pwqyrczode2626 [place] [phone]. Nahed Yañez ALP [Catalytic activity/Vol] 65 U/L Normal 46-116 [facility] Comment on above: Performed By: #### C RENZO, CMADM ####[facility] Geoohuygiu4710 [place] [phone]. Nahed Yañez ALT [Catalytic activity/Vol] 27 U/L Normal 14-59 [facility] Comment on above: Performed By: #### C RENZO, CMADM ####[facility] Ggfdykkklr9520 [place] [address]Dr. Nahed Yañez Anion gap [Moles/Vol] 10.3 mmol/L Normal [facility] Comment on above: Performed By: #### C RENZO, CMADM ####[facility] Esrywbegjx23[address] [place], [place] [address]Dr. Nahed Yañez AST [Catalytic activity/Vol] 11 U/L Critically low 15-37 [facility] Comment on above: Performed By: #### C RENZO, CMADM ####[facility] Khwanvtsus9[address] [place], [place] [address]Dr. Rosemarieashley Yañez Bilirubin [Mass/Vol] 0.3 mg/dL Normal 0.2-1.0 [facility] Comment on above: Performed By: #### C RENZO, CMADM ####[facility] Oxucsyhcld06[address] [place], [place] [address]Dr. Nahed Yañez Calcium [Mass/Vol] 8.1 mg/dL Critically low 8.5-10.1 [facility] Comment on above: Performed By: #### C RENZO, CMADM ####[facility] Ekzoeeyfqj38[address] [place], [place] [address]Dr. Nahed Yañez Chloride [Moles/Vol] 98 mmol/L Normal 98-107 [facility] Comment on above: Performed By: #### C RENZO, CMADM ####[facility] Uwwpjzlzmw8[address] [place], [place] [address]Dr. Rosemarieashley Yañez CO2 [Moles/Vol] 32.5 mmol/L Critically high 21.0-32.0 [facility] Comment on above: Performed By: #### C RENZO, CMADM ####[facility] Gtofqiuppu1117[address] [place], [place] [address]Dr. Yiashley Yañez Creatinine [Mass/Vol] 0.94 mg/dL Normal 0.55-1.02 [facility] Comment on above: Performed By: #### C RENZO, CMADM ####[facility] Aiplvpnocy7546 [place] [phone]. Nahed Yañez EGFR-AF MONTSERRATIAN >60 Normal >=60 [facility] Comment on above: Performed By: #### C RENZO, CMADM ####[facility] Zjjmtlxiti7282 [place] [phone]. Nahed Yañez EGFR-NON AF MONTSERRATIAN >60 Normal >=60 [facility] Comment on above: Performed By: #### C RENZO, CMADM ####[facility] Ozcmqcnwlp5770 [place] [address]Dr. Nahed Otilio Globulin (S) [Mass/Vol] 3.2 g/dL Normal [facility] Comment on above: Performed By: #### C RENZO, CMADM ####[facility] Pimlqjntsy6369 [place] [address]Dr. Nahed Otilio Glucose [Mass/Vol] 123 mg/dL Critically high 74-106 [facility] Comment on above: Performed By: #### C RENZO, CMADM ####[facility] Bajlvomzvx7833 [place] [address]Dr. Nahed Otilio Potassium [Moles/Vol] 3.8 mmol/L Normal 3.5-5.1 [facility] Comment on above: Performed By: #### C RENZO, CMADM ####[facility] Duptfdgnyh7501 [place] [phone]. Nahed Otilio Protein [Mass/Vol] 5.9 g/dL Critically low 6.1-8.2 [facility] Comment on above: Performed By: #### C RENZO, CMADM ####[facility] Tvkzqbqhde7318 [place] [address]Dr. Nahed Yañez Sodium [Moles/Vol] 137 mmol/L Normal 136-145 [facility] Comment on above: Performed By: #### C RENZO, CMADM ####[facility] Kccdbxuaul0419 [place] [address]Dr. Nahed Yañez Urea nitrogen [Mass/Vol] 20.0 mg/dL Critically high 7.0-18.[address] [facility] Comment on above: Performed By: #### C MP, CMADM ####[facility] Dshpzecrir8[address] [place], [place] [address]Dr. Nahed Yañez Urea nitrogen/Creatinine [Mass ratio] 21.3 mg/mg Normal [facility] Comment on above: Performed By: #### C MP, CMADM ####[facility] Vppemousuu0386[address] [place], [place] [address]Dr. Nahed Yañez BNPon 09-06-2021 Natriuretic peptide B (Bld) [Mass/Vol] 923.0 pg/mL Critically high <=900.[address] [facility] Comment on above: Performed By: #### B MP, BNP, HSTROPN ####[facility] Zgzwkrzdlz7924[address] [place], [place] [address]Dr. Nahed Yañez CBC AUTO DIFFon 09-06-2021 BASO # 0.1 103/ul Normal 0.0-0.1 [facility] Comment on above: Performed By: #### C BC ####[facility] Ftsvtloomb86[address] [place], [place] [address]Dr. Nhaed Otilio Basophils/100 WBC (Bld) 0.6 % Normal 0.2-2.[address] [facility] Comment on above: Performed By: #### C BC ####[facility] Jqznkdydyw[address] [place], [place] [address]Dr. Nahed Yañez EO # 0.3 103/ul Normal 0.0-0.[address] [facility] Comment on above: Performed By: #### C BC ####[facility] Iextfcacwq16[address] [place], [place] [address]Dr. Nahed Yañez Eosinophils/100 WBC (Bld) 3.0 % Normal 0.9-7.[address] [facility] Comment on above: Performed By: #### C BC ####[facility] Rbuzvqubdf4924[address] [place], [place] [address]Dr. Nahed Yañez Erythrocyte distribution width (RBC) [Ratio] 15.0 % Normal 11.0-15.0 [facility] Comment on above: Performed By: #### C BC ####[facility] Twiwenihgy6172 [place] [address]Dr. Rosemarieashley Yañez Hematocrit (Bld) [Volume fraction] 48.1 % Critically high 36.0-48.[address] [facility] Comment on above: Performed By: #### C BC ####[facility] Grsrjagsxv0765 [place] [address]DrShaun Yañez Hemoglobin (Bld) [Mass/Vol] 15.5 g/dL Normal 12.0-16.[address] [facility] Comment on above: Result Comment: delt a check called to Manisha WALKER Performed By: #### C BC ####[facility] Cauylskptg[address] [place], [place] [address]Dr. Nahed Yañez IG # 0.46 10e3/ul Critically high 0.00-0.03 [facility] Comment on above: Performed By: #### C BC ####[facility] Ibasijbesa2494[address] [place], [place] [address]Dr. Nahed Yañez IG % 4.2 % Critically high 0.0-0.5 [facility] Comment on above: Performed By: #### C BC ####[facility] Wcobcoheyw11[address] [place], [place] [address]DrShaun Yañez LYMPH # 2.2 103/ul Normal 1.2-3.[address] [facility] Comment on above: Performed By: #### C BC ####[facility] Rcyorddifk9[address] [place], [place] [address]DrShaun Yañez Lymphocytes/100 WBC (Bld) 20.6 % Normal 20.5-60.[address] [facility] Comment on above: Performed By: #### C BC ####[facility] Jspsahnrvi[address] [place], [place] [address]DrShaun Yañez MANUAL DIFF REQ NO Normal [facility] Comment on above: Performed By: #### C BC ####[facility] [facility] [address] [place], [place] [address]DrShaun Yañez MCH (RBC) [Entitic mass] 28.2 pg Normal 26.7-34.0 [facility] Comment on above: Performed By: #### C BC ####[facility] [address] [place] [address]DrShaun Yañez MCHC (RBC) [Mass/Vol] 32.2 g/dL Normal 29.9-35.[address] [facility] Comment on above: Performed By: #### C BC ####[facility] [address] [place], [place] [address]DrShaun Yañez MCV (RBC) [Entitic vol] 87.5 fL Normal 81.0-99.[address] [facility] Comment on above: Performed By: #### C BC ####[facility] [address] [place], [place] [address]DrShaun Yañez MONO # 0.7 103/ul Normal 0.3-0.[address] [facility] Comment on above: Performed By: #### C BC ####[facility] K[address] [place], [place] [address]DrShaun Yañez Monocytes/100 WBC (Bld) 6.4 % Normal 1.7-12.[address] [facility] Comment on above: Performed By: #### C BC ####[facility] D[address] [place], [place] [address]DrShaun Yañez NEUT # 7.1 103/ul Critically high 1.4-6.5 The [facility] Comment on above: Performed By: #### C BC ####[facility] [address] [place], [place] [address]DrShaun Yañez Neutrophils/100 WBC (Bld) 65.2 % Normal 43.0-75.[address] [facility] Comment on above: Performed By: #### C BC ####[facility] [address] [place], [place] [address]DrShaun Yañez Platelet mean volume (Bld) [Entitic vol] 8.9 fL Critically low 9.5-13.[address] [facility] Comment on above: Performed By: #### C BC ####[facility] U[address] [place], [place] [address]Dr. Nahed Yañez PLT 390 103/ul Normal 150-[address] [facility] Comment on above: Performed By: #### C BC ####[facility] [address] [place] [id number]. Nahed Yañez RBC 5.50 106/ul Critically high 4.20-5.40 [facility] Comment on above: Performed By: #### C BC ####[facility] [address]xcq[address] [place] [id number]. Nahed Yañez WBC 10.8 103/ul Normal 4.0-11.0 [facility] Comment on above: Performed By: #### C BC ####[facility] [address] [place] [address]Dr. Nahed Yañez CULTURE BLOODon 09-06-2021 Microscopic examination of blood, culture Culture Observations: NO GROWTH AT 5 DAYS. Isolate 1 BC_BA_NA Normal [facility] Comment on above: Performed By: #### B LDCX2 ####[facility] [address] [place] [id number]. Nahed Yañez Microscopic examination of blood, culture Culture Observations: NO GROWTH AT 5 DAYS. Normal [facility] Comment on above: Performed By: #### B LDCX1 ####[facility] Ypqnqlcllp[address] [place] [address]Dr. Nahed Yañez Covid-19 PCR (CVDTB)on 08-13 SARS-CoV-2 (COVID-19) RNA MIRNA+probe Ql (Unsp spec) Not detected Normal NOT DETECTED [facility] Comment on above: Result Comment: When [...] for this test is supported by the Electric Utility Lineworker of Health and Human Service's declaration that [...] be used). Performed By: #### C VDTBH ####[facility] [address] [place] [address]Dr. Nahed Yañez LACTATE/LACTIC ACIDon 2021 Lactate [Moles/Vol] 0.1 mmol/L Critically low 0.4-2.0 [facility] Comment on above: Performed By: #### L ACT ####[facility] [address] [place], [place] [address]Dr. Nahed Yañez Lactate [Moles/Vol] 1.5 mmol/L Normal 0.4-2.0 [facility] Comment on above: Performed By: #### L ACT ####[facility] E[address]ral[address] [place], [place] [address]Dr. Nahed Yañez POINT OF CARE GLUCOSEon 08-13 Glucose [Mass/Vol] 201 mg/dL Critically high 74-106 [facility] Comment on above: Performed By: #### P OCGLUC ####[facility] V[address] [place], [place] [address]Dr. Nahed Yañez PROF CHEM 8 (BAS METB)on Anion gap [Moles/Vol] 14.8 mmol/L Normal [facility] Comment on above: Performed By: #### B MP, BNP, HSTROPN ####[facility] Ntolwxulhi46[address] [place] [address]Dr. Nahed Yañez Calcium [Mass/Vol] 8.8 mg/dL Normal 8.5-10.1 [facility] Comment on above: Performed By: #### B MP, BNP, HSTROPN ####[facility] [address]zqhdxb[address] [place] [address]Dr. Nahed Yañez Chloride [Moles/Vol] 95 mmol/L Critically low 98-107 [facility] Comment on above: Performed By: #### B MP, BNP, HSTROPN ####[facility] Omlmphuuvo[address] [place] [address]Dr. Nahed Yañez CO2 [Moles/Vol] 28.7 mmol/L Normal 21.0-32.0 [facility] Comment on above: Performed By: #### B MP, BNP, HSTROPN ####[facility] Ex[address]aleorpa[address] [place] [address]Dr. Nahed Yañez Creatinine [Mass/Vol] 0.98 mg/dL Normal 0.55-1.02 [facility] Comment on above: Performed By: #### B MP, BNP, HSTROPN ####[facility] [address] [place], [place] [address]Dr. Nahed Yañez EGFR-AF MONTSERRATIAN >60 Normal >=60 [facility] Comment on above: Performed By: #### B MP, BNP, HSTROPN ####[facility] [address] [place], [place] [address]Dr. Nahed Yañez EGFR-NON AF MONTSERRATIAN 58 mL/min/1.73m2 Critically low >=60 [facility] Comment on above: Performed By: #### B MP, BNP, HSTROPN ####[facility] Q[address] [place], [place] [address]Dr. Nahed Yañez Glucose [Mass/Vol] 150 mg/dL Critically high 74-106 [facility] Comment on above: Performed By: #### B MP, BNP, HSTROPN ####[facility] Am[address] [place], [place] [address]Dr. Nahed Yañez Potassium [Moles/Vol] 4.5 mmol/L Normal 3.5-5.1 [facility] Comment on above: Performed By: #### B MP, BNP, HSTROPN ####[facility] Jrryhnbdpi[address] [place], [place] [address]Dr. Nahed Yañez Sodium [Moles/Vol] 134 mmol/L Critically low 136-145 [facility] Comment on above: Performed By: #### B MP, BNP, HSTROPN ####[facility] [address] [place], [place] [address]Ii. Nahed Yañez Urea nitrogen [Mass/Vol] 19.0 mg/dL Critically high 7.0-18.[address] [facility] Comment on above: Performed By: #### B MP, BNP, HSTROPN ####[facility] [address]vx[address] [place], [place] [address]Xg. Nahed Yañez Urea nitrogen/Creatinine [Mass ratio] 19.4 mg/mg Normal [facility] Comment on above: Performed By: #### B MP, BNP, HSTROPN ####[facility] [address]vtrtucavi[address] [place] [id number]. Nahed Yañez TROPONIN, HIGH SENSITIVITYon 09-06-2021 HSTROP 50.4 pg/mL Normal 4.0-51.[address] [facility] Comment on above: Result Comment: CUT- OFF POINTS HAVE BEEN ESTABLISHED BASED ON THE FOURTH UNIVERSAL DEFINITIONS OF MYOCARDIALINFARCTION. THE UPPER REFERENCE LIMIT (URL) OF TROPONIN, DEFINED THE 99TH PERCENTILE OFcTnI DISTRIBUTION IN A REFERENCE POPULATION, HAS BEEN CONFIRMED THE DECISION THRESHOLDFOR AK DIAGNOSIS. Performed By: #### B MP, BNP, HSTROPN ####[facility] [address]kb[address] [place] [address]Dr. Nahed Yañez XR CHEST 1 Von 09-06-2021 XR CHEST 1 V Normal [facility] CBC with Diffon 09-08-2018 Abs. Basophil 0.03 k/uL Normal 0.00-0.20 [facility] Comment on above: Performed By: #### L IP, CMPX, CDP #### [facility] [address] [place] [address] Windshield Technician: Nino Farias MD Abs.Imm.Granulocyte 0.05 k/uL Normal 0.00-0.30 [facility] Comment on above: Performed By: #### L IP, CMPX, CDP #### [facility] [address] [place], [place] [address] Windshield Technician: Nino Farias MD Abs.Neutrophil (Seg) 11.30 k/uL High 1.50-8.10 [facility] Comment on above: Performed By: #### L IP, CMPX, CDP #### [address] [place], [place] [address] Windshield Technician: Nino Farias MD Basophils/100 WBC (Bld) 0 % Normal 0-2 [facility] Comment on above: Performed By: #### L IP, CMPX, CDP #### [address] [place], [place] [address] Windshield Technician: Nino Farias MD Eosinophils #/vol (Bld) 0.17 10*3/uL Normal 0.00-0.44 [facility] Comment on above: Performed By: #### L IP, CMPX, CDP #### [address] [place] [address] Windshield Technician: Nino Farias MD Eosinophils/100 WBC (Bld) 1 % Normal 1-4 [facility] Comment on above: Performed By: #### L IP, CMPX, CDP #### [address] [place], [place] [address] Windshield Technician: Nino Farias MD Erythrocyte distribution width Ratio (RBC) 12.5 % Normal 11.8-14.4 [facility] Comment on above: Performed By: #### L IP, CMPX, CDP #### [address] [place], [place] [address] Windshield Technician: Nino Farias MD Hematocrit Volume Fraction (Bld) 36.8 % Normal 36.3-47.1 [facility] Comment on above: Performed By: #### L IP, CMPX, CDP #### [address] [place] [address] Windshield Technician: Nino Farias MD Hemoglobin mass conc (Bld) 11.6 g/dL Low 11.9-15.1 [facility] Comment on above: Performed By: #### L IP, CMPX, CDP #### [facility] [address] [place], [facility] Windshield Technician: Nino Farias MD Immature granulocytes #/vol (Bld) 0 % Normal 0 [facility] Comment on above: Performed By: #### L IP, CMPX, CDP #### [facility] [address] [place], [facility] Windshield Technician: Nino Farias MD Lymphocytes #/vol (Bld) 2.56 10*3/uL Normal 1.10-3.70 [facility] Comment on above: Performed By: #### L IP, CMPX, CDP #### [facility] [address] [place], [facility] Windshield Technician: Nino Farias MD Lymphocytes/100 WBC (Bld) 18 % Low 24-43 [facility] Comment on above: Performed By: #### L IP, CMPX, CDP #### [facility] [address] [place], [facility] Windshield Technician: Nino Farias MD MCH Entitic mass (RBC) 30.6 pg Normal 25.2-33.5 [facility] Comment on above: Performed By: #### L IP, CMPX, CDP #### [address] [place], [facility]83 Windshield Technician: Nino Farias MD MCHC mass conc (RBC) 31.5 g/dL Normal 28.4-34.8 [facility] Comment on above: Performed By: #### L IP, CMPX, CDP #### [address] [place], [facility]83 Windshield Technician: Nino Farias MD MCV Entitic volume (RBC) 97.1 fL Normal 82.6-102.9 [facility] Comment on above: Performed By: #### L IP, CMPX, CDP #### [facility] [address] [place] [facility] Windshield Technician: Nino Farias MD Monocytes #/vol (Bld) 0.55 10*3/uL Normal 0.10-1.20 [facility] Comment on above: Performed By: #### L IP, CMPX, CDP #### [facility] [address] [place], [facility] Windshield Technician: Nino Farias MD Monocytes/100 WBC (Bld) 4 % Normal 3-12 [facility] Comment on above: Performed By: #### L IP, CMPX, CDP #### [facility] [address] [place], [place] [address] Windshield Technician: Nino Farias MD Neutrophil (Seg) 77 % High 36-65 [facility] Comment on above: Performed By: #### L IP, CMPX, CDP #### [facility] [address] [place], [facility] Windshield Technician: Nino Farias MD NRBC Automated 0.0 per 100 WBC Normal 0.0 [facility] Comment on above: Performed By: #### L IP, CMPX, CDP #### [address] [place], [facility]83 Windshield Technician: Nino Farias MD Platelet mean volume Entitic volume (Bld) 9.2 fL Normal 8.1-13.5 [facility] Comment on above: Performed By: #### L IP, CMPX, CDP #### [facility] [address] [place], [facility] Windshield Technician: Nino Farias MD Platelets #/vol (Bld) 305 10*3/uL Normal 138-453 [facility] Comment on above: Performed By: #### L IP, CMPX, CDP #### [facility] [address] [place], [facility]83 Windshield Technician: Nino Farias MD RBC #/vol (Bld) 3.79 10*6/uL Low 3.95-5.11 [facility] Comment on above: Performed By: #### L IP, CMPX, CDP #### [facility] [address] [place], [place] [address] Windshield Technician: Nino Farias MD WBC #/vol (Bld) 14.7 10*3/uL High 3.5-11.3 [facility] Comment on above: Performed By: #### L IP, CMPX, CDP #### [facility] [address] [place] [address] Windshield Technician: Nino Farias MD Auto Diff Performed NOT REPORTED Normal [facility] Comment on above: Performed By: #### L IP, CMPX, CDP #### [facility] [address] [place] [address] Windshield Technician: Nino Farias MD Platelets #/vol (Bld) NOT REPORTED Normal [facility] Comment on above: Performed By: #### L IP, CMPX, CDP #### [facility] [address] [place] [address] Windshield Technician: Nino Farias MD RBC morphology finding Nom (Bld) NOT REPORTED Normal [facility] Comment on above: Performed By: #### L IP, CMPX, CDP #### [facility] [address] [place] [address] Windshield Technician: Nino Farias MD WBC Morphology NOT REPORTED Normal [facility] Comment on above: Performed By: #### L IP, CMPX, CDP #### [facility] [address] [place], [place] [address] Windshield Technician: Nino Farias MD Comp Metabolic Pr/rfx MGon 0 09-08-2018 ALT enzyme act/vol U/L Low 5-33 [facility] Comment on above: Performed By: #### L IP, CMPX, CDP #### [facility] [address] [place] [address] Windshield Technician: Nino Farias MD (cont.) [facility] Comment on above: Result Comment: Aver age GFR for 50-59 years old: 93 mL/min/1.73sq m Chronic Kidney Disease: <60 mL/min/1.73sq m Kidney failure: <15 mL/min/1.73sq m eGFR calculated using average adult body mass. Additional eGFR calculator available at: http://www.pluriSelect/multiple_crcl_2012.htm Performed By: #### L IP, CMPX, CDP #### [facility] [address] [place] [address] Windshield Technician: Nino Farias MD Albumin mass conc 4.0 g/dL Normal 3.5-5.2 [facility] Comment on above: Performed By: #### L IP, CMPX, CDP #### [facility] [address] [place] [address] Windshield Technician: Nino Farias MD Albumin/Globulin mass ratio 1.3 {ratio} Normal 1.0-2.5 [facility] Comment on above: Performed By: #### L IP, CMPX, CDP #### [facility] [address] [place] [address] Windshield Technician: Nino Farias MD Alkaline Phos 58 U/L Normal 35-104 [facility] Comment on above: Performed By: #### L IP, CMPX, CDP #### [facility] [address] [place] [address] Windshield Technician: Nino Farias MD Anion gap molar conc 8 mmol/L Low 9-17 [facility] Comment on above: Performed By: #### L IP, CMPX, CDP #### [facility] [address] [place] [address] Windshield Technician: Nino Farias MD AST enzyme act/vol 20 U/L Normal <32 [facility] Comment on above: Performed By: #### L IP, CMPX, CDP #### [facility] [address] [place] [address] Windshield Technician: Nino Farias MD Bilirubin Ql (U) 0.17 mg/dL Low 0.3-1.2 [facility] Comment on above: Performed By: #### L IP, CMPX, CDP #### [facility] [address] [place], [place] [address] Windshield Technician: Nino Farias MD BUN/CRE Ratio 15 Normal 9-20 [facility] Comment on above: Performed By: #### L IP, CMPX, CDP #### [facility] [address] [place] [address] Windshield Technician: Nino Farias MD Calcium mass conc 9.3 mg/dL Normal 8.6-10.4 [facility] Comment on above: Performed By: #### L IP, CMPX, CDP #### [facility] [address] [place], [place] [address] Windshield Technician: Nino Farias MD Chloride molar conc 97 mmol/L Low 98-107 [facility] Comment on above: Performed By: #### L IP, CMPX, CDP #### [facility] [address] [place], [place] [address] Windshield Technician: Nino Farias MD CO2 molar conc 31 mmol/L Normal 20-31 [facility] Comment on above: Performed By: #### L IP, CMPX, CDP #### [facility] [address] [place] [address] Windshield Technician: Nino Farias MD Creatinine mass conc 1.22 mg/dL High 0.50-0.90 [facility] Comment on above: Performed By: #### L IP, CMPX, CDP #### [facility] [address] [place] [address] Windshield Technician: Nino Farias MD GFR, Amer 55 mL/min Low >60 [facility] Comment on above: Performed By: #### L IP, CMPX, CDP #### [facility] [address] [place] [address] Windshield Technician: Nino Farias MD GFR,non Amer 45 mL/min Low >60 [facility] Comment on above: Performed By: #### L IP, CMPX, CDP #### [facility] [address] [place], [place] [address] Windshield Technician: Nino Farias MD Glucose mass conc 93 mg/dL Normal 70-99 [facility] Comment on above: Performed By: #### L IP, CMPX, CDP #### [facility] [address] [place] [address] Windshield Technician: Nino Farias MD Potassium molar conc 4.5 mmol/L Normal 3.7-5.3 [facility] Comment on above: Performed By: #### L IP, CMPX, CDP #### [facility] [address] [place] [address] Windshield Technician: Nino Farias MD Protein mass conc 7.0 g/dL Normal 6.4-8.3 [facility] Comment on above: Performed By: #### L IP, CMPX, CDP #### [facility] [address] [place] [address] Windshield Technician: Nino Farias MD Sodium molar conc 136 mmol/L Normal 135-144 [facility] Comment on above: Performed By: #### L IP, CMPX, CDP #### [facility] [address] [place] [address] Windshield Technician: Nino Farias MD Staging: Normal [facility] Comment on above: Result Comment: Stag e 1: Some kidney damage normal GFR Stage 2: Mild kidney damage GFR 60-89 Stage 3: Moderate kidney damage GFR 30-59 Stage 4: Severe kidney damage GFR 15-29 Stage 5: Severe kidney damage GFR <15 ESRD - chronic treatment by dialysis or transplant Performed By: #### L MONSERRAT COSTAX, CDP #### [facility] [address] [place] [address] Windshield Technician: Nino Farias MD Urea nitrogen mass conc 18 mg/dL Normal 6-20 [facility] Comment on above: Performed By: #### L JULISSA CMPX, CDP #### [facility] [address] [place], [place] 9554[address] Windshield Technician: Nino Farias MD Lactic Acidon 09-08-2018 Lactate molar conc 1.2 mmol/L Normal 0.5-2.2 [facility] Comment on above: Performed By: #### L AC #### [facility] [address] [place], [place] [address]244[address] Windshield Technician: Nino Farias MD Lipaseon 09-08-2018 Lipase enzyme act/vol 27 U/L Normal 13-60 [facility] Comment on above: Performed By: #### L MESSI COSTA, CDP #### [facility] [address] [place], [place] [address] Windshield Technician: Nino Farias MD UA w/Reflex Cultureon 2018 Acetoacetic Acid,Ur Negative Normal NEG [facility] Comment on above: Performed By: #### U MICAO, UAX #### [facility] [address] [place] [address] Windshield Technician: Nino Farias MD Bilirubin.direct mass conc SMALL Abnormal NEG [facility] Comment on above: Performed By: #### U MICAO, UAX #### [facility] [address] [place] [address] Windshield Technician: Nino Farias MD Color Nom (U) YELLOW Normal YEL [facility] Comment on above: Performed By: #### U MICAO, UAX #### [facility] [address] [place] [address] Windshield Technician: Nino Farias MD Glucose mass conc Negative Normal NEG [facility] Comment on above: Performed By: #### U MICAO, UAX #### [facility] [address] [place], [place] 39[address]683 Windshield Technician: Nino Farias MD Hemoglobin mass conc (Bld) Negative Normal NEG [facility] Comment on above: Performed By: #### U MICAO, UAX #### [facility] [address] [place] [address] Windshield Technician: Nino Farias MD Leuckocyte Esterase Negative Normal [facility] Comment on above: Performed By: #### U MICAO, UAX #### [facility] [address] [place], [facility]83 Windshield Technician: Nino Farias MD Nitrite,Ur Negative Normal [facility] Comment on above: Performed By: #### U MICAO, UAX #### [facility] [address] [place], [place] [address]83 Windshield Technician: Nino Farias MD PH,Ur 5.5 Normal 5.0-9.0 [facility] Comment on above: Performed By: #### U MICAO, UAX #### [facility] [address] [place], [facility] Windshield Technician: Nino Farias MD Protein mass conc Negative Normal [facility] Comment on above: Performed By: #### U MICAO, UAX #### [facility] [address] [place], [place] [address]83 Windshield Technician: Nino Farias MD Spec. [place],Ur 1.010 Normal 1.010-1.020 [facility] Comment on above: Performed By: #### U MICAO, UAX #### [facility] [address] [place], [place] 149[address] Windshield Technician: Nino Farias MD Turbidity CLEAR Normal CLEAR [facility] Comment on above: Performed By: #### U MICAO, UAX #### [facility] [address] [place], [place] 154[address]83 Windshield Technician: Nino Farias MD Urobilinogen,Ur Normal Normal NORM [facility] Comment on above: Performed By: #### U MICAO, UAX #### [facility] [address] [place], [place] [address]53[address]83 Windshield Technician: Nino Farias MD Comment NOT REPORTED Normal [facility] Comment on above: Performed By: #### U MICAO, UAX #### [facility] [address] [place], [place] 622[address]83 Windshield Technician: Nino Farias MD Urinalysis,Microon 9 ----- Normal [facility] Comment on above: Performed By: #### U MICAO, UAX #### [facility] [address] [place], [place] 4737683 Windshield Technician: Nino Farias MD Bacteria LM.HPF #/area (Urine sed) TRACE Abnormal NONE [facility] Comment on above: Performed By: #### U MICAO, UAX #### [facility] [address] [place], [place] 6724783 Windshield Technician: Nino Farias MD Epithelial cells LM.HPF #/area (Urine sed) None Normal 0-25 [facility] Comment on above: Performed By: #### U MICAO, UAX #### [facility] [address] [place], [place] [address] Windshield Technician: Nino Farias MD RBC #/vol (U) None Normal 0-2 [facility] Comment on above: Performed By: #### U MICAO, UAX #### [facility] [address] [place] [address] Windshield Technician: Nino Farias MD WBC #/vol (U) 0 TO 2 Normal 0-5 [facility] Comment on above: Performed By: #### U MICAO, UAX #### [facility] [address] [place], [place] 0260[address] Windshield Technician: Nino Farias MD Amorphous sediment LM Ql (Urine sed) NOT REPORTED Normal NONE [facility] Comment on above: Performed By: #### U MICAO, UAX #### [facility] [address] [place], [place] [id number] Windshield Technician: Nino Farias MD Casts LM.LPF #/area (Urine sed) NOT REPORTED Normal [facility] Comment on above: Performed By: #### U MICAO, UAX #### [facility] [address] [place], [place] [id number] Windshield Technician: Nino Farias MD Crystals LM Nom (Urine sed) NOT REPORTED Normal [facility] Comment on above: Performed By: #### U MICAO, UAX #### [facility] [address] [place], [place] [id number] Windshield Technician: Nino Farias MD Epithelial, Renal NOT REPORTED Normal 0 [facility] Comment on above: Performed By: #### U MICAO, UAX #### [facility] [address] [place], [place] [id number] Windshield Technician: Nino Farias MD Mucus Strands NOT REPORTED Normal [facility] Comment on above: Performed By: #### U MICAO, UAX #### [facility] [address] [place], [place] [id number] Windshield Technician: Nino Farias MD Other Observations NOT REPORTED Normal NREQ [facility] Comment on above: Performed By: #### U MICAO, UAX #### [facility] [address] [place] [address] Windshield Technician: Nino Farias MD Trichomonas NOT REPORTED Normal NONE [facility] Comment on above: Performed By: #### U MICAO, UAX #### [facility] [address] [place] [address] Windshield Technician: Nino Farias MD Yeast LM Ql (Urine sed) NOT REPORTED Normal NONE [facility] Comment on above: Performed By: #### U MICAO, UAX #### [facility] [address] [place] [address] Windshield Technician: Nino Farias MD Vital Signs Date Time Vital Sign Value Performing Clinician Shelton logan 07-05-2023 22:13-0500 Diastolic blood pressure 74 mm[Hg] Arsenio Martin [facility] 07-05-2023 22:13-0500 Heart rate 62 /min Arsenio Martin [facility] 07-05-2023 22:13-0500 Mean blood pressure 85 mm[Hg] Arsenio Martin [facility] 07-05-2023 22:13-0500 Respiratory rate 14 /min Arsenio Martin [facility] 07-05-2023 22:13-0500 SaO2% (BldA) [Mass fraction] 99 % Arsenio Martin [facility] 07-05-2023 22:13-0500 Systolic blood pressure 107 mm[Hg] Arsenio Martin [facility] 07-05-2023 21:49-0500 Diastolic blood pressure 69 mm[Hg] Arsenio Martin [facility] 07-05-2023 21:49-0500 Heart rate 59 /min Arsenio Martin [facility] 07-05-2023 21:49-0500 Mean blood pressure 80 mm[Hg] Arsenio Mario [facility] 07-05-2023 21:49-0500 Respiratory rate 15 /min Arsenio Mario [facility] 07-05-2023 21:49-0500 SaO2% (BldA) [Mass fraction] 97 % Arsenio Mario [facility] 07-05-2023 21:49-0500 Systolic blood pressure 101 mm[Hg] Arsenio Mario [facility] 07-05-2023 21:02-0500 Diastolic blood pressure 77 mm[Hg] Arsenio Mario [facility] 07-05-2023 21:02-0500 Heart rate 60 /min Arsenio Mario [facility] 07-05-2023 21:02-0500 Mean blood pressure 86 mm[Hg] Arsenio Mario [facility] 07-05-2023 21:02-0500 Respiratory rate 16 /min Arsenio Mario [facility] 07-05-2023 21:02-0500 SaO2% (BldA) [Mass fraction] 99 % Arsenio Mario [facility] 07-05-2023 21:02-0500 Systolic blood pressure 105 mm[Hg] Arsenio Mario [facility] 07-05-2023 17:45-0500 Body temperature 97.52 [degF] Arsenio Mario [facility] 07-05-2023 16:27-0500 Body temperature 96.44 [degF] Arsenio Mario [facility] 07-05-2023 15:15-0500 gluc 136 mg/dL Arsenio Mario [facility] 07-05-2023 15:15-0500 gluc Arsenio Mario [facility] 07-05-2023 15:02-0500 Body temperature 95.9 [degF] Arsenio Mario [facility] 07-05-2023 15:02-0500 Heart rate 54 /min Arsenio Mario [facility] 07-05-2023 15:02-0500 Respiratory rate 16 /min Arsenio Mario [facility] 08-09-2022 17:25-0400 Diastolic blood pressure 64 mm[Hg] Arsenio Mario [facility] 08-09-2022 17:25-0400 Heart rate 75 /min Arsenio Mario [facility] 08-09-2022 17:25-0400 Mean blood pressure 83 mm[Hg] Arsenio Mario [facility] 08-09-2022 17:25-0400 Respiratory rate 16 /min Arsenio Mario [facility] 08-09-2022 17:25-0400 SaO2% (BldA) [Mass fraction] 96 % Arsenio Mario [facility] 08-09-2022 17:25-0400 Systolic blood pressure 122 mm[Hg] Arsenio Mario [facility] 08-09-2022 16:00-0400 Diastolic blood pressure 56 mm[Hg] Arsenio Mario [facility] 08-09-2022 16:00-0400 Heart rate 64 /min Arsenio Mario [facility] 08-09-2022 16:00-0400 Mean blood pressure 72 mm[Hg] Arsenio Mario [facility] 08-09-2022 16:00-0400 SaO2% (BldA) [Mass fraction] 92 % Arsenio Martin [facility] 08-09-2022 16:00-0400 Systolic blood pressure 103 mm[Hg] Arsenio Martin [facility] 08-09-2022 15:00-0400 Diastolic blood pressure 67 mm[Hg] Arsenio Martin [facility] 08-09-2022 15:00-0400 Heart rate 61 /min Arsenio Martin [facility] 08-09-2022 15:00-0400 Mean blood pressure 80 mm[Hg] Arsenio Martin [facility] 08-09-2022 15:00-0400 Systolic blood pressure 106 mm[Hg] Arsenio Martin [facility] 08-09-2022 14:03-0400 SaO2% (BldA) [Mass fraction] 94.1 % Arsenio Martin [facility] 08-09-2022 13:10-0400 Body temperature 98.24 [degF] Arsenio Martin [facility] 08-09-2022 13:10-0400 Heart rate 70 /min Arsenio Martin [facility] 08-09-2022 13:10-0400 Respiratory rate 18 /min Arsenio Martin [facility] Encounters Encounter Date Encounter Type Care Provider Facility Start: 07-11-2023 Evaluation and management of inpatient LOREE CHANCE [facility] Start: 07-08-2023 Evaluation and management of inpatient CASPERLAYNE [facility] Start: 07-06-2023 Evaluation and management of inpatient BARRETT LARSON GANGWANI [facility] Start: 07-06-2023 End: 07-11-2023 Evaluation and management of inpatient UMAIR CAMACHOOD [facility] Start: 07-05-2023 End: 07-06-2023 Emergency department patient visit Arsenio Martin [facility] Start: 07-05-2023 End: 07-05-2023 Emergency department patient visit Arsenio Martin [facility] Start: 06-29-2023 Evaluation and management of inpatient ROSALBA MOSS [facility] Start: 06-29-2023 End: 07-02-2023 Evaluation and management of inpatient SOCORRO Zayas MATTHEW [facility] Start: 08-22-2022 End: 08-24-2022 Evaluation and management of inpatient DR ЕКАТЕРИНА ROBERT . Facility: Start: 08-09-2022 End: 08-09-2022 Emergency department patient visit Arsenio Martin [facility] Start: 08-09-2022 End: 08-09-2022 Emergency department patient visit Arsenio Martin [facility] Start: 07-30-2022 End: 08-01-2022 Evaluation and management of inpatient DR ЕКАТЕРИНА ROBERT . Facility: Start: 07-27-2022 End: 07-28-[address] ЕКАТЕРИНА ROBERT . Facility: Start: 05-08-2022 End: 05-09-[address] ЕКАТЕРИНА ROBERT . Facility: Start: 01-31-2022 End: 01-31-[address] ЕКАТЕРИНА ROBERT . Facility: Start: 11-01-2021 End: 11-03-2021 Evaluation and management of inpatient TAMIE FAJARDO Facility:[facility] Start: 10-31-2021 End: 11-01-2021 Evaluation and management of inpatient DR ЕКАТЕРИНА ROBERT . Facility: Start: 09-28-2021 End: 09-29-[address] ЕКАТЕРИНА ROBERT . Facility: Start: 09-06-2021 End: 09-07-[address] ЕКАТЕРИНА ROBERT . Facility: Start: 03-04-2021 End: 03-04-2021 Emergency department patient visit Magdalena Oconnor Facility:[facility] Start: 09-08-2018 End: 09-08-2018 Emergency department patient visit KEISHA Viera ESTRADA WRIGHT [facility] Procedures Date Procedure Procedure Detail Performing Clinician Start: 08-02-2022 Microscopic examinat ion of blood, culture DR ЕКАТЕРИНА ROBERT . Comment on above: Performed By: #### B [id number] ####[facility] [address] [place], [place] [address]UzShaun Yañez Start: 11-02-2021 Antibody screen HANI SA AD Comment on above: Performed By: #### 3 5200, 13370 #### [facility] [address] [place] [address], [facility] Start: 07-16-2019 Phalangectomy of toe Fabián [...] Date Payer Category Payer Self-pay 2018 Medicare [id number] 1960 Unknown [id number] 2.16.8 [id number] 1960 Unknown [id number] 2.16.8 [id number] 1960 Unknown [id number] 2.16.84 [id number] 1960 Unknown [id number] 2.16.84 0.1.267576.3.579.2.593 1960 Unknown [id number] 2.16.84 0.1.126706.3.579.2.593 1960 Unknown [id number] 2.16.84 0.1.023790.3.579.2.593 1960 Unknown [id number] 2.16.84 0.1.217179.3.579.2.593 1960 Unknown [id number] 2.16.84 0.1.220948.3.579.2.593 1960 Unknown [id number] 2.16.84 0.1.655896.3.579.2.593 1960 Unknown [id number] 2.16.84 0.1.033494.3.579.2.593 1961 Unknown [id number] 2.16.8 40.1.123093.3.579.2.727 1960 Unknown [id number] 2.16.8 40.1.025129.3.579.2.727 1959 Unknown [id number] Unknown [id number] 2.16.8 [id number] Social History Date Type Detail Facility Start: 08-09-2022 Tobacco smoking status Heavy t obacco smoker (finding) [facility] Comment on above: 2 cigarettes a day Sex Assigned At Female [facility] Functional Status Date Assessment Result Facility 07-05-2023 Functional Status N/A [facility] 08-09-2022 Functional Status N/A [facility] Clinical Notes 11-03-2021 to 07-11-2023 Note [...] 10:20 AM Socorro Oviedo NP CARD [facility] 08/06/2023 1:30 PM [facility] DEVICE CHECK C CARD [place] HeartVAS Your medication list START taking these [...] from last 7 days Lab Units 07/11/23 0507/10/2342707/07/2341707/06/23237 WBC AUTO 10*3/uL 11.52* 10.52 < > 14.42* HEMOGLOBIN g/dL 13.1 14.0 < > 12.6 HEMATOCRIT % 40.9 42.6 < > 39.0 MCV fL 87.0 86.2 < > 86.5 PLATELETS AUTO 10*3/uL 339 329 < > 321 INR -- -- -- 1.00 < > = values in this interval not displayed. Chemistry: Results from last 7 days Lab Units 07/11/23 0507/10/2342707/09/23 0445 07/08/23 0508 07/07/238 07/06/23 0238 SODIUM [...] 70.4 kg (1 (more content not included)... [facility] 07-11-2023 Note Occupational Therapy Occupational Therapy [...] List Diagnosis NSTEMI (non-ST elevated myocardial infarction) (CMS/HCC) Coronary arteriosclerosis Hyperlipidemia Type 2 diabetes mellitus (CMS/HCC) Acute non-ST segment elevation myocardial infarction (CMS/HCC) Cigarette smoker Other forms of angina pectoris [...] Level of Function Prior Function Level of [place]: Independent with ADLs and functional transfers, Independent [...] Eating meals?: None (Independent) Total Score OT [facility]: 24 Assessment/Plan OT Assessment OT Education/Comments: (PPM handout issued and discussed with good return demo) Plan OT Plan: No skilled OT OT Discharge Recommendations: Home OT - Discharge Recommendations Placed: Yes OT Goals Multi-Disciplinary Problems (from Occupational Therapy) Active Problems Not on file [facility] 07-11-2023 Note UTP CARDIOLOGY PROGR ESS [...] -- -- 75 15 97 % -- 07/10/23 2015 (!) 120/93 36.9 ???C (98.5 ???F) -- [...] Normal heart size. Electronically signed: Denver Hernandez. [facility] 06/29/23: Final Impression: 1) Coronary angiogram shows stable CAD 2) right heart catheterization shows severely decompensated heart failure with mean wedge pressure 35 mmHg Plan: 1) optimal med therapy for CAD and HFpEF 2) Aspirin and high intensity statin therapy for CAD 3) optimize medical therapy for HFpEF as tolerated 4) outpatient follow-up with [place] cardiology Echo 06/29/23: Left Ventricle: The left ventricle is normal size. Global left ventricular sys (more content not included)... [facility] 07-11-2023 Note Hospital Medicine Daily Progress Note - 07/11/2023 8:24 AM; Room: [address] [place] [address] Admission: 07/06/2023 12:25 AM; Length of stay: 5 days THE HOSPITALIST TEAM PREFERS TO USE PeopleJar CHAT FOR COMMUNICATION 7AM-7PM. IF I DO NOT RESPOND WITHIN 15 MINUTES, PLEASE PAGE ME/CALL THROUGH THE KNITTING SUPERVISOR. FROM 7PM-7AM, PLEASE PAGE [phone](COVR) Code Status: Full Code Barriers to Discharge: [...] days Lab Units 07/11/23 0529 07/10/23 0428 07/07/23 0418 07/06/23 0238 WBC AUTO 10*3/uL 11.52* 10.52 [...] LDL 95 07/06/2023 No results found for: [id number] , IRON , TIBC , C3 , [...] clear. Normal heart (more content not included)... [facility] 07-10-2023 Note Indications for dual -chamber [...] subfascial pocket. Via 2 breakaway introducer sheaths AbraRestoronik active-fixation leads were fluoroscopically guided into positions [...] of the upper extremity Loree Chance M.D. [facility] Inspector Outside Steam Distributiontransformation manager and Pediatrics Director: Cardiac Electrophysiology Program [facility] 07-10-2023 Note Patient: Vivian Dela Cruz or Procedure Information Date/Time: 07/10/23 1500 Procedure: Implant PPM Location: [facility] / [facility] (Cath) Providers: Loree Chance [...] discussed with patient who. Additional Equipment Requests [facility] 07-10-2023 Note UTP CARDIOLOGY PROGR ESS [...] lock IV AND sodium chloride CV Testing: [facility] 06/29/23: Final Impression: 1) Coronary angiogram shows stable CAD 2) right heart catheterization shows severely decompensated heart failure with mean wedge pressure 35 mmHg Plan: 1) optimal med therapy for CAD and HFpEF 2) Aspirin and high intensity statin therapy for CAD 3) optimize medical therapy for HFpEF as tolerated 4) outpatient follow-up with [place] cardiology Echo 06/29/23: Left Ventricle: The left [...] 86 QT Interval 466 QTC CALCULATION(BAZETT) 476 R-[place] 34 T Wave [place] [address] & Marked T wave abnormality, consider anterolateral ischemia Prolonged QT Abnormal ECG When compared with ECG of 06-JUL-2023 14:34, T wave inversion less evident in Lateral Confirmed by Yoan GRIJALVA, KIERA Rainey (57) on 07/08/2023 12:23:36 PM Assessment/Plan Junctional bradycardia Abnormal EKG- ST/T wave changes concerning for ischemia- [facility] showed stable CAD Ventric (more content not included)... [facility] 07-10-2023 Note Hospital Medicine Daily Progress Note - 07/10/2023 8:08 AM; Room: [address] [place] [address] Admission: 07/06/2023 12:25 AM; Length of stay: 4 days THE HOSPITALIST TEAM PREFERS TO USE PeopleJar CHAT FOR COMMUNICATION 7AM-7PM. IF I DO NOT RESPOND WITHIN 15 MINUTES, PLEASE PAGE ME/CALL THROUGH THE KNITTING SUPERVISOR. FROM 7PM-7AM, PLEASE PAGE [phone](COVR) Code Status: Full Code Barriers to Discharge: [...] Results from last 7 days Lab Units 07/09/2344407/08/23 05007/07/2341707/06/23 023 WBC AUTO 10*3/uL 11.03* 12.46* < > [...] LDL 95 07/06/2023 No results found for: [id number] , IRON , TIBC , C3 , [...] need to arrange for her transportation needs; director underwriter sales provided printed information to Pt for local [employer] for Pt (more content not included)... [facility] 07-09-2023 Note Patient admitted to the hospital for: Bradycardia. Chart echo from 06/29/2023 reports: EF 60%. Echo report does Not qualify for Cardiac Rehab services per CMS eligibility criteria. A Cardiac Rehab referral must also meet CMS criteria. Marline Suarez, RN, BSN Cardiopulmonary Rehab Coordinator [facility] 07-09-2023 Note Cardiology Inpatient Progress Note [...] 07/08/23 1633 98/67 36.7 ???C (98.1 ???F) 65 23 97 % -- Physical Examination: [...] 86 QT Interval 466 QTC CALCULATION(BAZETT) 476 R-[place] 34 T Wave [place] [address] & Marked T wave abnormality, consider anterolateral ischemia Prolonged QT Abnormal ECG When compared with ECG of 06-JUL-2023 14:34, T wave inversion less evident in Lateral Confirmed by Yoan GRIJALVA, KIERA Rainey (57) on 07/08/2023 12:23:36 PM Lab Results Component Value Date CKTOTAL 36.0 07/06/2023 TROPONINI 0.12 () 07/06/2023 No nuclear medicine results found for [...] HFpEF as tolerated 4) outpatient follow-up with [place] cardiology Hemodynamic Data: RA: 17 mmHg RV: [...] of bradycardia. Patient has been transferred to [facility] for consideration of pacemaker placement. As per patient, her heart rate was 18 at the outside hospital, however I could not confirm from any documentation. During the current hospitalization, so far patient's heart rate has been ranging 40-50. EKG performed in the ED showed diffuse T wave inversions with junctional rhythm. Telemetry shows sinus bradycardia a (more content not included)... [facility] 07-09-2023 Note Hospital Medicine Daily Progress Note - 07/09/2023 11:10 AM; Room: [address] [place] [address] Admission: 07/06/2023 12:25 AM; Length of stay: 3 days THE HOSPITALIST TEAM PREFERS TO USE PeopleJar CHAT FOR COMMUNICATION 7AM-7PM. IF I DO NOT RESPOND WITHIN 15 MINUTES, PLEASE PAGE ME/CALL THROUGH THE KNITTING SUPERVISOR. FROM 7PM-7AM, PLEASE PAGE [phone](COVR) Code Status: Full Code Barriers to Discharge: [...] LDL 95 07/06/2023 No results found for: [id number] , IRON , TIBC , C3 , [...] 07/08/2023 12:23:36 PM Discharge Planning TBD Signed Barrett Haider MD MS4 [facility] 07/09/2023 11: (more content not included)... [facility] 07-08-2023 Note ---- Attestation signed by [...] 07/08/23 0802 84/55 36.4 ???C (97.5 ???F) Temporal 67 21 98 % -- 07/08/23 0801 103/63 -- -- 63 -- -- -- 07/08/23 0800 99/75 -- -- 63 -- -- -- 07/08/23 0502 -- -- -- -- -- -- 70.9 kg (156 lb 6.4 oz) 07/08/23 0430 105/65 -- -- 61 15 95 % -- 07/08/23 0005 88/61 36.4 ???C (97.5 ???F) Temporal 61 26 -- -- 07/07/232024 88/53 36.8 ???C (98.2 ???F) Temporal 65 17 92 % -- 07/07/23 1055 90/60 36.6 ???C (97.9 ???F) Temporal 65 15 94 % -- Physical Examination: [...] 86 QT Interval 466 QTC CALCULATION(BAZETT) 476 R-[place] 34 T Wave [place] [address] & Marked T wave abnormality, consider anterolateral ischemia Prolonged QT Abnormal ECG When compared with ECG of 06-JUL-2023 14:34, T wave inversion less evident in Lateral Lab Results Component Value Date CKTOTAL 36.0 07/06/2023 TROPONINI 0.12 () 07/06/2023 Complete Echo (TTE) w/wo Imaging Agent, Strain, 3D, Bubble Study Result Date: 06/29/2023 1 1 [facility] [address] [place] [address] [phone] (fax) Echocardiogram-[facility] Name: VIVIAN VANN Study Date: 06/29/2023 12:30 PM B/P: 135 mmHg/89 mmHg HR: Date of : 1960 Location: [facility] Height: 67 in. Age: 63 year(s) Patient [...] Valve: The mitr (more content not included)... [facility] 07-08-2023 Note Hospital Medicine Daily Progress Note - 07/08/2023 8:42 AM; Room: [address] [place] [address] Admission: 07/06/2023 12:25 AM; Length of stay: 2 days THE HOSPITALIST TEAM PREFERS TO USE PeopleJar CHAT FOR COMMUNICATION 7AM-7PM. IF I DO NOT RESPOND WITHIN 15 MINUTES, PLEASE PAGE ME/CALL THROUGH THE KNITTING SUPERVISOR. FROM 7PM-7AM, PLEASE PAGE [phone](COVR) Code Status: Full Code Barriers to Discharge: [...] LDL 95 07/06/2023 No results found for: [id number] , IRON , TIBC , C3 , C4 , WENDI , CANCA , ASO , PSA , CEA , CA125 , CA199 , AFP , CA153 Imaging ECG [address] & Marked T wave abnormality, consider anterolateral ischemia Prolonged QT Abnormal ECG When compared with ECG of 06-JUL-2023 14:34, T wave inversion less evident in Lateral Discharge Planning TBD Signed Barrett Haider MD MS4 [facility] 07/08/2023 8:[address] [facility] 07-07-2023 Note ---- Attestation signed by [...] ???F) -- 63 23 -- -- -- 07/06/23 2000 101/79 36.3 ???C (97.3 ???F) -- 67 17 91 % -- -- 07/06/23 1833 105/77 -- -- 62 19 100 % -- -- 07/06/23 1725 91/66 36.4 ???C (97.6 ???F) Temporal 64 13 97 % -- -- 07/06/23 [...] 84 QT Interval 434 QTC CALCULATION(BAZETT) 451 R-[place] 23 T Wave [place] [address] & Marked [...] Bubble Study Result Date: 06/29/2023 1 1 [facility] [address] [place], [place] [id number] (fax) [facility]ocardiogram[facility] Name: VIVIAN VANN Study Date: 06/29/2023 12:30 PM B/P: 135 mmHg/89 mmHg HR: Date of : 1960 Location: [facility] Height: 67 in. Age: 63 year(s) Patient [...] abnormality. Right Ventricle: (more content not included)... [facility] 07-07-2023 Note Hospital Medicine Daily Progress Note - 07/07/2023 10:19 AM; Room: 3120/3120-01 Admission: 07/06/2023 12:25 AM; Length of stay: 1 days THE HOSPITALIST TEAM PREFERS TO USE lark FOR COMMUNICATION 7AM-7PM. IF I DO NOT RESPOND WITHIN 15 MINUTES, PLEASE PAGE ME/CALL THROUGH THE KNITTING SUPERVISOR. FROM 7PM-7AM, PLEASE PAGE [phone](COVR) Code Status: Full Code Barriers to Discharge: [...] 4.6 3.7 CHLORIDE (more content not included)... [facility] 07-06-2023 Note communication receiv ed that Patient stating does not have transportation to return home at discharge At 07/02/2023 discharge, [facility] provided a one-time courtesy taxi cab transportation for Patient to return to her home (Patient[place] residence [place] [address]-way from [facility] and cost for taxi cab was $146); [facility] is not able to provide another taxi cab. The following information was printed and provided to the Patient to make her own transportation arrangements for once she is medically cleared for discharge: [facility] hospital address is [address] [place] [address] [employer] Medicare to ask if non-emergency medical transportation is a covered benefit of the specific plan (https://www.[employer]/contact-us/[place] o/) Taxis in [place] (https://co.jonnie.nj./3086/Taxi) [employer] [phone] (8294) [employer] [phone] [facility] 07-06-2023 Note 07/06/23 1625 Referral Data Referral Source political worker Patient Information Primary Caregiver Self Activities [...] need to arrange for her transportation needs; director underwriter sales provided printed information to Pt for local taxi [employer] companies for Pt to consider; [facility] unable to pay for another one-time courtesy taxi cab for 57miles one-way trip) [facility] 07-06-2023 Note 1526 director underwriter sales attempted to meet with Pt to discuss discharge planning (including Patient will need to arrange her transportation once she is medically cleared to discharge to home); Patient not in bed; unable to complete [id number] director underwriter sales attempted to meet with Pt to discuss discharge planning (including Patient will need to arrange her transportation once she is medically cleared to discharge to home); Patient caring for toileting hygiene; unable to complete [id number] [facility] 07-06-2023 Note 07/06/23 1219 Admission Assessment [...] Yes Would you like use our pharmacy [email or web address] to fill your new medications at the time of Discharge? Yes Does the patient have a heel caser assigned to them through their insurance? [...] to send link and activate MyChart? Yes [facility] 07-06-2023 Note ---- Attestation signed by Barrett Haider MD at 07/06/2023 1:28 PM As [...] Progress Note - 07/06/2023 11:37 AM; Room: [address] [place] [address] Admission: 07/05/2023 11:50 PM; Length of stay: 1 days THE HOSPITALIST TEAM PREFERS TO USE [employer] CHAT FOR COMMUNICATION 7AM-7PM. IF I DO NOT RESPOND WITHIN 15 MINUTES, PLEASE PAGE ME/CALL THROUGH THE KNITTING SUPERVISOR. FROM 7PM-7AM, PLEASE PAGE [phone](COVR) Code Status: Full Code Barriers to Discharge: [...] -Continue home medi (more content not included)... [facility] 07-06-2023 Note . Hospital Medicine History and Physical 07/06/2023 1:19 AM THE HOSPITALIST TEAM PREFERS TO USE [employer] CHAT FOR COMMUNICATION 7AM-7PM. IF I DO NOT RESPOND WITHIN 15 MINUTES, PLEASE PAGE ME/CALL THROUGH THE KNITTING SUPERVISOR. FROM 7PM-7AM, PLEASE PAGE [phone](COVR) Chief Complaint No chief complaint on file. History of Present Illness Vivian Vann is an 63 y.o. female who came from home with CP. This is a 63 years old female lady with a medical history of hypertension, tobacco smoking, A-fib, CHF. Came into the [facility] as a direct admit transfer from outside [...] Bradycardia 07/06/2023 NSTEMI (non-ST elevated myocardial infarction) ([facility]) 06/29/2023 Other forms of angina pectoris 06/29/2023 Hypomagnesemia 06/29/2023 Acute midline low back pain without sciatica 06/29/2023 Coronary arteriosclerosis 11/24/2021 Hyperlipidemia 11/24/2021 Type 2 diabetes mellitus ([facility]) 11/24/2021 Acute non-ST segment elevation myocardial infarction ([facility]) 11/24/2021 Cigarette smoker 11/24/2021 Assessment and Plan [...] this hospital stay by a member of [facility]. Past Medical History No past [...] (CARDIA) Difficulty of (more content not included)... [facility] 07-05-2023 Evaluation + Plan note Extrac [...] Reflex 07/05/23 * Drug Screen Urine 07/05/23 [facility]02-19-2024 NotePatient admitted to the hospital for: NSTEMI. Review of the last noted chart Echo from 06/29/2023 reports: EF 60%. Reported echo result does not qualify for Cardiac Rehab services per [facility] eligibility criteria for CHF. Marline Suarez, RN, BSN Cardiopulmonary Rehab CoordinatorMount St. 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 No Patient's goal for discharge home RucCC screened; Pt declining [facility], Consult resolved 1340 Communication received that Pt needing transportation to home since was transferred here from [facility], does not drive, lives alone, does not have friends or family who can transport ([phone]) PC to [employer]; from [address] [place] [address] [place] [address] will be $146 Lever Miller provided verbal estimate to transportation supervisor, verbal approval from transportation supervisor [phone] taxi cab transportation arranged; bedside RN notified Confirmation #: [id number] Passenger: VIVIAN VANN Phone Number: [phone] Pickup Date/Time: 07/02/2023 3:00 PM Pickup Address: [facility], [address] [place] [address], [place], [address] Drop Off Address: [address] [place] [address]. Arlene Notes: please pickup at [facility]02-19-2024 Note07/02/23 1017 Admission Assessment Questions Verify insurance [...] Discharge? Yes Does the patient have a heel caser assigned to them through their insurance? [...] able to send link and activate MyChart? [facility]02-19-2024 Note Attestation signed by Merritt Guerrero [...] Value Ventricular Rate 61 Atrial Rate 61 NH Interval 150 QRS DURATION 88 QT Interval 476 QTC CALCULATION(BAZETT) 479 P [place] 68 R-[place] 25 T Wave [place] 128 Impression Normal sinus rhythm Right atrial [...] Bubble Study Result Date: 06/29/2023 1 1 [facility] [address] [place] [address] [phone] (fax) [facility]ogram-[facility] Name: VIVIAN VANN Study Date: 06/29/2023 12:30 PM B/P: 135 mmHg/89 mmHg HR: Date of : 1960 Location: [facility] Height: 67 in. Age: 63 year(s) Patient [...] ventricular systolic function. Dop (more content not included)...[facility]02-18-2024 NoteHospital Medicine Daily Progress Note - 07/01/2023 12:00 PM; Room: 3120/3120-01 Admission: 06/29/2023 11:04 AM; Length of stay: 2 days THE HOSPITALIST TEAM PREFERS TO USE lark FOR COMMUNICATION 7AM-7PM. IF I DO NOT RESPOND WITHIN 15 MINUTES, PLEASE PAGE ME/CALL THROUGH THE KNITTING SUPERVISOR. FROM 7PM-7AM, PLEASE PAGE [phone](COVR) Code Status: Full Code Barriers to Discharge: [...] Principal Problem: NSTEMI (non-ST elevated myocardial infarction) ([facility]) Active Problems: Hyperlipidemia Type 2 diabetes mellitus ([facility]) Other forms of angina pectoris Hypomagnesemia Acute [...] LDL 114 11/02/2021 No results found for: [id number] , IRON , TIBC , C3 , C4 , WENDI , CANCA , ASO , PSA , CEA , CA125 , CA199 , AFP , CA153 Imaging ECG 12 lead Normal sinus rhythm Right atrial (more content not included)...[facility] 07-01-2023 Note Attestation signed by Merritt [...] Value Ventricular Rate 61 Atrial Rate 61 NH Interval 150 QRS DURATION 88 QT Interval 476 QTC CALCULATION(BAZETT) 479 P [place] 68 R-[place] 25 T Wave [place] 128 Impression Normal sinus rhythm Right atrial [...] Bubble Study Result Date: 06/29/2023 1 1 [facility] [address] [place] [address] [phone] (fax) [facility] Name: VIVIAN VANN Study Date: 06/29/2023 12:30 PM B/P: 135 mmHg/89 mmHg HR: Date of : 1960 Location: [facility] Height: 67 in. Age: 63 year(s) Patient [...] Right Ventricle: The r (more content not included)...[facility]02-17-2024 Note Attestation signed by Merritt Guerrero [...] Value Ventricular Rate 61 Atrial Rate 61 NH Interval 150 QRS DURATION 88 QT Interval 476 QTC CALCULATION(BAZETT) 479 P [place] 68 R-[place] 25 T Wave [place] 128 Impression Normal sinus rhythm Right atrial [...] Bubble Study Result Date: 06/29/2023 1 1 [facility] [address] [place] [address] [phone] (fax) [facility]ocardi[facility] Name: VIVIAN VANN Study Date: 06/29/2023 12:30 PM B/P: 135 mmHg/89 mmHg HR: Date of : 1960 Location: [facility] Height: 67 in. Age: 63 year(s) Patient [...] Mild Mild N (more content not included)... [facility]02-17-2024 NoteHospital Medicine Daily Progress Note - 06/30/2023 11:32 AM; Room: [address] [place] [address] Admission: 06/29/2023 11:04 AM; Length of stay: 1 days THE HOSPITALIST TEAM PREFERS TO USE lark FOR COMMUNICATION 7AM-7PM. IF I DO NOT RESPOND WITHIN 15 MINUTES, PLEASE PAGE ME/CALL THROUGH THE KNITTING SUPERVISOR. FROM 7PM-7AM, PLEASE PAGE [phone](COVR) Code Status: Full Code Barriers to Discharge: [...] Principal Problem: NSTEMI (non-ST elevated myocardial infarction) ([facility]) Active Problems: Hyperlipidemia Type 2 diabetes mellitus ([facility]) Other forms of angina pectoris Hypomagnesemia Acute [...] LDL 114 11/02/2021 No results found for: [id number] , IRON , TIBC , C3 , C4 , WENDI , CANCA , ASO , PSA , CEA , CA125 , CA199 , AFP , CA153 Imaging ECG 12 lead Normal sinus rhythm Right atrial enlargement ST & T wave abnormality, consider ante (more content not included)...[facility]02-16-2024 NotePatient: Vivian Vann Procedure Information Date/Time: 06/29/23 1655 Procedure: Coronary angiography Location: [facility] / [facility] (Cath) Providers: Ortiz Aquino [...] who. Plan discussed with attending. [facility] Note Hospital Medicine History and Physical 06/29/2023 12:51 PM THE HOSPITALIST TEAM PREFERS TO USE [employer] CHAT FOR COMMUNICATION 7AM-7PM. IF I DO NOT RESPOND WITHIN 15 MINUTES, PLEASE PAGE ME/CALL THROUGH THE KNITTING SUPERVISOR. FROM 7PM-7AM, PLEASE PAGE [phone](COVR) Chief Complaint Direct admission from [facility] for NSTEMI requiring cardiac cath History of Present Illness Vivian Vann is an 63 y.o. female who came from [facility] as direct asmission for NSTEMI. Patient presented 06/28/23 to [place] ED for c/o chest pain and lower back pain. Patient troponin level found to be 557 and EKG showed new ischemia and inverted T-waves, NSTEMI. She was given nitroglycerin and started on heparin ip. Patient is 1 year s/p stent placement at [facility] on plavix and aspirin. Dr. Yoo with cardiology agreed to patient transfer here to [facility] with hospital medicine admitting and cardiology consult [...] Low back pending. Laboratory workup here at [facility] shows CBC unremarkable w/ exception of NCHC [...] nursing note reviewed. Exam conducted with a rabies inspector present. Constitutional: General: She is not in [...] Date Noted NSTEMI (non-ST elevated myocardial infarction) ([facility]) 06/29/2023 Assessment and Plan Chest pain Low Back Pain NSTEMI -Troponin [address] [facility], troponin now 0.07 - aPTT 67.3, [...] Heparin drip with titratio (more content not included)...[facility]04-05-2023 NoteMicrobiology PROCEDURE: Blood Culture Charcoal [R1] [...] Locations R1: [facility], [address] [place] [address], [id number] [place] [address], JmvcjbDoctors HospitalComment on above:Performed By: #### [id number] ####[place] [address] [place], [place] [id number] NoteMicrobiology PROCEDURE: Blood Culture Charcoal [R1] SOURCE: Blood BODY SITE: Arm L COLLECTED DATE/TIME: 08/09/2022 14:09 EDT RECEIVED DATE/TIME: 08/09/2022 14:17 EDT START DATE/TIME: 08/09/2022 14:17 EDT FREE TEXT SOURCE: lt ac Nic PA-C, Clinton C Nic PA-C, Clinton C FINAL REPORTS Final Report [] Verified Date/Time: 08/16/2022 15:58 EDT No growth at 7 days. Performing Locations R1: This test was performed at: [facility], [address] [place] [address], [id number] [place] [address], IdkhszDoctors HospitalComment on above:Performed By: #### [id number] ####[address] [id number] Hospital Discharge instructions Patient Education 08/09/2022 16:50:59 [...] Follow these instructions at home: Medicines Take pfln-jgq-gvcbwgy and prescription medicines (inhaled or pills) only [...] 02/07/2006 Document Revised: 04/12/2018 Document Reviewed: 06/04/2017 [employer] Patient Education 2020 [employer]. Follow Up Care 08/09/2022 13:09:28 With:Екатерина Robert Address: [address] [place], [place] [id number] Business (1) When:08/12/2022 16:50:37 Comments:Call the office [...] you develop any new or worsening symptoms. [facility]03-29-2023 Evaluation + Plan noteExtracted from: Title:ED [...] Charcoal 08/09/22 * Blood Culture Charcoal 08/09/22 [facility]06-23-2022 NoteMR#: [id number] [facility] Pt. Name: Vivian Vann Admitted: 11/01/2021 Discharged: 11/03/2021 Date of : 1960 Physician: Tamie Fajardo MD DISCHARGE SUMMARY PRINCIPAL DIAGNOSIS: Mrd-IS-pluxlgmkn myocardial infarction. SECONDARY DIAGNOSES: 1. Questionable small subsegmental PE in the right lower lobe, favored to be chronic per CT angio done outside facility. 2. Peptic ulcer disease. 3. Depression. 4. Chronic obstructive pulmonary disease. 5. THC use. 6. Nicotine use. HOSPITAL COURSE: Again, the patient was admitted to the hospital on 11/01/2021, with chest pain and she was found to have a efo-EV-xwikfzgxi AK. The patient underwent cardiac catheterization and had [...] Fajardo MD Date Trans: 11/03/2021 01:10 P/laura [id number] cc: Gasper Avendano M.D. [address] [place] [address] Екатерина Robert M.D. [place] [id number] [facility] [id number] [facility] Narrative No data available for this section [facility] Discharge instructions No data available for this section [facility] Hospital[facility] note No data available for this section [facility] Summary Purpose Family History No Family [...] content) DATE CREATED AUTHOR 09/12/2018 [facility] DATE CREATED AUTHOR AUTHOR'S ORGANIZ ATION 01/06/2022 [facility] DATE CREATED AUTHOR AUTHOR'S ORGANIZ ATION 09/05/2022 [facility] DATE CREATED AUTHOR AUTHOR'S ORGANIZ ATION 07/13/2023 [facility] DATE CREATED AUTHOR AUTHOR'S ORGANIZ ATION 07/13/2023 [facility] DATE CREATED AUTHOR AUTHOR'S ORGANIZ ATION 07/19/2023 [facility] Patient Care team informatio n (unrecognized section and content) Personnel Name: Екатерина Robert MD Address: Address: [address] [place] [address] Personnel Name: Екатерина Robert MD Address: Address: [address] [place] [address] FOR RECORDS PERTAINING TO PATIENTS WHO ARE [...] BE BASED ON THE PRIMARY CLINICAL RECORDS. [employer] [facility]. provides no warranty or guarantee of the accuracy or completeness of information in this document.
== END 2023-07-31 09:46 | disposition home or self-care (01) ==
LOC: RAD 09:50
PROVIDERS: PCP Family Medicine
DX: T82.110A Breakdown (mechanical) of cardiac electrode, initial encounter (principal)
CPT/HCPCS: 71046

== ENCOUNTER 2023-08-08 06:12 | Emergency (ER) | payer OTHER, SELFPAY ==
[2023-08-08] VITALS (11 sets, daily range): BP systolic 125–196; BP diastolic 94–121; PULSE 83–92; RESP 14–25; TEMP 36.8; O2SAT 97–98
--- NOTE | 2023-08-08 06:47 | ECG_ITS ---
[facility] Test Date: 2023-08-08 Pat Name: EMERY JETT Department: Room: - Gender: Female Can Operator: : 1960 Requested By: ЕКАТЕРИНА ROBERT Order Number: [id number] Reading MD: ЕКАТЕРИНА ROBERT Measurements Intervals [place] Rate: 83 P: -71720 [place]: -[address]649 QRS: 52 QRSD: 68 T: 97 QT: 324 QTc: 364 Interpretive Statements 1400 Undetermined rhythm (Possible supraventricular rhythm) 4068 Nonspecific Twave abnormality 9140 abnormal rhythm ECG Compared to ECG 07/29/2023 16:02:55 No significant changes Electronically Signed On 08-09-2023 6:47:30 EDT by ЕКАТЕРИНА ROBERT
--- OUTSIDE RECORDS SUMMARY | 2023-08-08 06:47 | XMS_ITS | CCD ---
Author Organization [facility] Care Team Providers Care Community Resource Officer Name Role Phone KEISHA DORADO JR Attending Unavailable PATRICIA CORDERO Primary Care Unavailable TAMIE FAJARDO Attending Unavailable UMAIR MANDUJANO Admitting Unavailable GASPER AVENDANO Referring Unavailable ЕКАТЕРИНА ROBERT Primary Care Unavailable Екатерина Robert Primary Care Physician [phone] DR ЕКАТЕРИНА CHARLES Consulting Unavailable JOSELINEY ., DR WILLAMS Attending Unavailable HOY ., DR WILLAMS Admitting Unavailable HOY ., DR WILLAMS Primary Care Unavailable HERMELINDA, DR KIRK Viera Consulting Unavailable [employer] Consulting Unavailable LINDA MARRERO Consulting Unavailable BRENNA DEE Consulting Unavailable JAKOB ., DR WILLAMS Consulting Unavailable JOSELINEY ., DR WILLAMS Attending Unavailable HOY ., DR WILLAMS Admitting Unavailable JAKOB Dunn, DR WILLAMS Primary Care Unavailable WINIFRED, DR EDGE Consulting Unavailable [employer] Consulting Unavailable LINDA MARRERO Consulting Unavailable KIM, BETINA Consulting Unavailable DR ЕКАТЕРИНА CHARLES Consulting Unavailable JAKOB .DR WILLAMS Primary Care Unavailable IDRIS STORY Attending Unavailable IDRIS STORY Admitting Unavailable PRESTON SHELDON Consulting Unavailable DR ЕКАТЕРИНА CHARLES Consulting Unavailable JAKOB ., DR WILLAMS Primary Care Unavailable JAKOB ., DR WILLAMS Attending Unavailable JOSELINEY ., DR WILLAMS Admitting Unavailable HOY ., DR WILLAMS Consulting Unavailable JOSELINEY ., DR WILLAMS Attending Unavailable JAKOB ., DR WILLAMS Admitting Unavailable JAKOB ., DR WILLAMS Primary Care Unavailable ARELI, DR CHANTEL Valenzuela Consulting Unavailable DENEEN ., DR SHEPHERD Consulting Unavailable JAKOB ., DR WILALMS Consulting Unavailable JOSELINEY ., DR WILLAMS Attending [...] NOORALDIN Referring Unavailable MERZA, NOORALDIN Referring Unavailable ARSENIO MARTIN Referring Unavailable DELBERT, UMAIR Admitting Unavailable GANGWANI, BARRETT LARSON Consulting Unavailab le DANUTA KNOX Attending Unavailable MARKER, SOCORRO J Referring Unavailable SCOTTY, HANI Admitting Unavailable KATHARINECHADD MEEK Attending Unavailable GANGWANI, BARRETT LARSON Referring Unavailab le GANGWANI, BARRETT LARSON Referring Unavailab le MERLE, LOREE Referring Unavailable DELBERT, UMAIR Referring Unavailable SAMMIVINAY GUZMAN Referring Unavailable DELBERT, UMAIR Referring Unavailable ZENZ, ROSALBA Referring Unavailable Bullimore, Magdalena E Admitting Unavailable Bullimore, Magdalena E Attending Unavailable Екатерина oRbert Primary Care Unavailable Allergies Allergy Classification Reported Allergen(s) Allergy Type Date of Onset Reaction(s) Facility (1 source) bee venom Drug allergy (disorder) 1 [facility] Repository (1 source) house dust allergenic extract; 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: [HOUSE DUST] Drug Allergy 4 [facility] Repository (1 source) HAY FEVER AND ALLERGY RELIEF; 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: [HAY FEVER AND ALLERGY RELIEF] Propensity to adverse reactions to drug (disorder) 4 [facility] Repository Medications Current Medications Medication Drug Class(es) [...] oral solution (2 sources) alpha-Adrenergic Agonist, Uncompetitive P-jopztd-H-aspart ate Receptor Antagonist, Sigma-1 Agonist Start: 08-10-19 [...] day(s), # 14 tab(s), Refills(s) 0, Pharmacy: [facility], 170.2, cm, 08/09/22 13:13:00 EDT, Height/Length [...] day(s), # 15 tab(s), Refills(s) 0, Pharmacy: [facility]5, 170.2, cm, 08/09/22 13:13:00 EDT, [...] (acute) exacerbation] Onset: 2 Chronic Conduction disorders (6 sources) Encounter for adjustment and management of automatic implantable cardiac defibrillator; 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: [Presence of cardiac pacemaker] Onset: 4 Chronic Congestive heart failure; nonhypertensive (8 sources) Chronic combined systolic (congestive) and diastolic (congestive) heart failure; 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: [Unspecified diastolic (congestive) heart failure] Onset: 2 Chronic Coronary atherosclerosis and other heart disease (6 sources) Atherosclerotic heart disease of citizen [place] coronary artery without angina pectoris; 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: [Old [...] 2 Chronic Other aftercare (1 source) Other fdc (current) drug therapy; 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: [OTH INTERMEDIATE CURRENT DRUG THERAPY] Onset: 3 Episodic Other aftercare (1 source) shelter (current) use of aspirin; 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: [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 Tried calling pts ER contact but it is a food pantry and was only a VM option. Did not leave message. [facility] 07-11-2023 30 The patient is Moderately Stable - Low risk of patient condition declining or worsening The patient's goals for the shift include pain control The clinical goals for the shift include maintain pacemaker precautions Over the shift, the patient did not make progress toward the following goals. Barriers to progression include na. Recommendations to address these barriers include na. [facility] 30 The patient is Moderately Stable - [...] of function Outcome: Progressing Normal [facility] BASIC METABOLIC PANELon 06-15 Anion gap [Moles/Vol] 15 mmol/L Normal 7-20 [facility] Comment on above: Performed By: #### L [id number] #### [facility] [[email or web address] LAB ([facility]) [address] [place] [address] Calcium [Mass/Vol] 9.4 mg/dL Normal 8.6-10.3 [facility] Comment on above: Performed By: #### L [id number] #### [facility] [[email or web address] LAB ([facility]) [address] [place] [address] Chloride [Moles/Vol] 97 mmol/L Low 98-[address] [facility] Comment on above: Performed By: #### L [id number] #### [facility] [[email or web address] LAB ([facility]) [address] [place] [address] CO2 [Moles/Vol] 27 mmol/L Normal 21-31 [facility] Comment on above: Performed By: #### L [id number] #### [facility] [[email or web address] LAB ([facility]) [address] [place] [address] Creatinine [Mass/Vol] 1.15 mg/dL Normal 0.60-1.20 [facility] Comment on above: Performed By: #### L [id number] #### [facility] [[email or web address] LAB ([facility]) [address] [place] [address] GLOMERULAR FILTRATION RATE ML/MIN/1.73 SQ M.PREDICTED 53.9 mL/min/1.73m*2 Low >60.0 [facility] Comment on above: Result Comment: The [facility]???s estimated glomerular filtration rate (eGFR) will no [...] individuals. Performed By: #### L [id number] #### [facility] [[email or web address]] LAB ([facility]) [address] [place] [address] Glucose [Mass/Vol] 143 mg/dL High 70-100 [facility] Comment on above: Performed By: #### L [id number] #### [facility] [[email or web address] LAB ([facility]) [address] [place] [address] Potassium [Moles/Vol] 3.9 mmol/L Normal 3.5-5.1 [facility] Comment on above: Performed By: #### L [id number] #### [facility] [[email or web address] LAB ([facility]) [address] [place] [address] Sodium [Moles/Vol] 135 mmol/L Low 136-145 [facility] Comment on above: Performed By: #### L [id number] #### [facility] [[email or web address] LAB ([facility]) [address] [place] [address] Urea nitrogen [Mass/Vol] 32 mg/dL High 7-25 [facility] Comment on above: Performed By: #### L [id number] #### [facility] [[email or web address] LAB ([facility]) [address] [place] [address] UREA NITROGEN/CREATININE (MASS RATIO) IN SER/PLAS 27.8 Normal [facility] Comment on above: Performed By: #### L [id number] #### [facility] [[email or web address] LAB ([facility]) [address] [place] [address] CBC WITH AUTO DIFFERENTIALon 07-11-2023 Basophils (Bld) [#/Vol] 0.03 10*3/uL Normal 0.00-0.20 [facility] Comment on above: Performed By: #### L [id number] #### [facility] [[email or web address] LAB ([facility]) [address] [place] [address] Basophils/100 WBC (Bld) 0.3 % Normal 0.0-1.0 [facility] Comment on above: Performed By: #### L [id number] #### [facility] [[email or web address] LAB ([facility]) [address] [place] [address] Eosinophils (Bld) [#/Vol] 0.32 10*3/uL Normal 0.00-0.50 [facility] Comment on above: Performed By: #### L [id number] #### [facility] [[email or web address]] LAB ([facility]) [address] [place] [address] Eosinophils/100 WBC (Bld) 2.8 % Normal 0.0-6.0 [facility] Comment on above: Performed By: #### L [id number] #### [facility] [[email or web address]] LAB ([facility]) [address] [place] [address] Erythrocyte distribution width (RBC) [Ratio] 15.3 % High 11.5-15.0 [facility] Comment on above: Performed By: #### L [id number] #### [facility] [[email or web address]] LAB ([facility]) [address] [place] [address] ERYTHROCYTE MEAN CORPUSCULAR HEMOGLOBIN CONCENTRATION (G/DL) BY AUTOMATED 32.0 g/dL Normal 32.0-35.0 [facility] Comment on above: Performed By: #### L [id number] #### [facility] [[email or web address]] LAB ([facility]) [address] [place] [address] Hematocrit (Bld) [Volume fraction] 40.9 % Normal 36.0-48.0 [facility] Comment on above: Performed By: #### L [id number] #### [facility] [[email or web address]] LAB ([facility]) [address] [place] [address] Hemoglobin (Bld) [Mass/Vol] 13.1 g/dL Normal 12.0-15.0 [facility] Comment on above: Performed By: #### L [id number] #### [facility] [[email or web address] LAB ([facility]) [address] [place] [address] Immature granulocytes (Bld) [#/Vol] 0.04 10*3/uL Normal 0.00-0.20 [facility] Comment on above: Performed By: #### L [id number] #### [facility] [[email or web address] LAB ([facility]) [address] [place] [address] Immature granulocytes/100 WBC (Bld) 0.3 % Normal 0.0-1.0 [facility] Comment on above: Performed By: #### L [id number] #### [facility] [[email or web address]] LAB ([facility]) [address] [place] [address] Lymphocytes (Bld) [#/Vol] 3.16 10*3/uL Normal 1.20-4.00 [facility] Comment on above: Performed By: #### L [id number] #### [facility] [[email or web address]] LAB ([facility]) [address] [place] [address] Lymphocytes/100 WBC (Bld) 27.4 % Normal 20.0-45.0 [facility] Comment on above: Performed By: #### L [id number] #### [facility] [[email or web address]] LAB ([facility]) [address] [place] [address] MCH (RBC) [Entitic mass] 27.9 pg Normal 27.0-33.0 [facility] Comment on above: Performed By: #### L [id number] #### [facility] [[email or web address]] LAB ([facility]) [address] [place] [address] MCV (RBC) [Entitic vol] 87.0 fL Normal 82.0-98.0 [facility] Comment on above: Performed By: #### L [id number] #### [facility] [[email or web address] [address] [place] [address] Monocytes (Bld) [#/Vol] 0.85 10*3/uL Normal 0.10-1.00 [facility] Comment on above: Performed By: #### L [id number] #### [facility] [[email or web address] LAB ([facility]) [address] [place] [address] Monocytes/100 WBC (Bld) 7.4 % Normal 5.0-12.0 [facility] Comment on above: Performed By: #### L [id number] #### [facility] [[email or web address] LAB ([facility]) [address] [place] [address] Neutrophils (Bld) [#/Vol] 7.12 10*3/uL Normal 1.60-7.60 [facility] Comment on above: Performed By: #### L [id number] #### [facility] [[email or web address] LAB ([facility]) [address] [place] [address] Neutrophils/100 WBC (Bld) 61.8 % Normal 40.0-72.0 [facility] Comment on above: Performed By: #### L [id number] #### [facility] [[email or web address] LAB ([facility]) [address] [place] [address] NRBC (PER 100 WBCS) BY AUTOMATED COUNT 0.0 % Normal 0 [facility] Comment on above: Performed By: #### L [id number] #### [facility] [[email or web address] LAB ([facility]) [address] [place] [address] PLATELETS (10*3/UL) IN BLOOD AUTOMATED COUNT 339 10*3/uL Normal 150-400 [facility] Comment on above: Performed By: #### L [id number] #### [facility] [[email or web address] [address] [place] [address] RBC (Bld) [#/Vol] 4.70 10*6/uL Normal 3.80-5.00 [facility] Comment on above: Performed By: #### L [id number] #### [facility] [[email or web address]] LAB ([facility]) [address] [place] [address] WBC (Bld) [#/Vol] 11.52 10*3/uL High 4.00-10.[address] [facility] Comment on above: Performed By: #### L [id number] #### [facility] [[email or web address]] LAB ([facility]) [address] [place] [address] 30on 07-10-2023 30 Problem: Pain - Adul [...] (more content not included)... Normal [facility] 30 Daily Case Managemen t Update Multidisciplinary [...] and Management 07/06/23 1050 Normal [facility] 30 The patient is Moderately Stable - Low risk of patient condition declining or worsening The patient's goals for the shift include comfort The clinical goals for the shift include pacemaker placement Problem: Pain - Adult Goal: Verbalizes/displays adequate comfort level or baseline comfort level Outcome: Progressing Flowsheets (Taken 07/09/2023 0812 by Emerald Curtis, JESU) Verbalizes/displays adequate comfort level or baseline comfort [...] and behaviors that affect risk of falls [place] fall precautions as indicated by assessment Educate [...] overall improvement and discharge Normal [facility] BASIC METABOLIC PANELon 06-15 Anion gap [Moles/Vol] 13 mmol/L Normal 7-20 [facility] Comment on above: Performed By: #### L [id number] ####[facility] [[email or web address]] LAB ([facility])[address] [place] [address] Calcium [Mass/Vol] 9.9 mg/dL Normal 8.6-10.3 [facility] Comment on above: Performed By: #### L [id number] ####[facility] [[email or web address]] LAB ([facility])[address] [facility] [place] [address] Chloride [Moles/Vol] 97 mmol/L Low 98-[address] [facility] Comment on above: Performed By: #### L [id number] ####[facility] [[email or web address]] LAB ([facility])[address] [facility] [address] CO2 [Moles/Vol] 30 mmol/L Normal 21-31 [facility] Comment on above: Performed By: #### L [id number] ####[facility] [[email or web address]] LAB ([facility])[address] [facility] [address] Creatinine [Mass/Vol] 1.06 mg/dL Normal 0.60-1.20 [facility] Comment on above: Performed By: #### L [id number] ####[facility] [[email or web address]] LAB ([facility])[address] [place] [address] GLOMERULAR FILTRATION RATE ML/MIN/1.73 SQ M.PREDICTED 59.4 mL/min/1.73m*2 Low >60.0 [facility] Comment on above: Result Comment: The [facility]???s estimated glomerular filtration rate (eGFR) will no [...] of individuals. Performed By: #### L [id number] ####[facility] [[email or web address]] LAB ([facility])[address] [place] [address] Glucose [Mass/Vol] 139 mg/dL High 70-100 [facility] Comment on above: Performed By: #### L [id number] ####[facility] [[email or web address] LAB ([facility])[address] [place] [address] Potassium [Moles/Vol] 3.9 mmol/L Normal 3.5-5.1 [facility] Comment on above: Performed By: #### L [id number] ####[facility] [[email or web address]] LAB ([facility])[address] [place] [address] Sodium [Moles/Vol] 136 mmol/L Normal 136-145 [facility] Comment on above: Performed By: #### L [id number] ####[facility] [[email or web address] LAB ([facility])[address] [place] [address] Urea nitrogen [Mass/Vol] 23 mg/dL Normal 7-25 [facility] Comment on above: Performed By: #### L [id number] ####[facility] [[email or web address] LAB ([facility])[address] [place] [address] UREA NITROGEN/CREATININE (MASS RATIO) IN SER/PLAS 21.7 Normal [facility] Comment on above: Performed By: #### L [id number] ####[facility] [[email or web address] [place] [address] CBC WITH AUTO DIFFERENTIALon 07-10-2023 Basophils (Bld) [#/Vol] 0.02 10*3/uL Normal 0.00-0.20 [facility] Comment on above: Performed By: #### L [id number] ####[facility] [[email or web address] LAB ([facility])[address] [place] [address] Basophils/100 WBC (Bld) 0.2 % Normal 0.0-1.0 [facility] Comment on above: Performed By: #### L [id number] ####[facility] [[email or web address] LAB ([facility])[address] [place] [address] Eosinophils (Bld) [#/Vol] 0.53 10*3/uL High 0.00-0.50 [facility] Comment on above: Performed By: #### L [id number] ####[facility] [[email or web address] LAB ([facility])[address] [place] [address] Eosinophils/100 WBC (Bld) 5.0 % Normal 0.0-6.0 [facility] Comment on above: Performed By: #### L [id number] ####[facility] [[email or web address]] LAB ([facility])[address] [place] [address] Erythrocyte distribution width (RBC) [Ratio] 15.3 % High 11.5-15.0 [facility] Comment on above: Performed By: #### L [id number] ####[facility] [[email or web address]] LAB ([facility])[address] [place] [address] ERYTHROCYTE MEAN CORPUSCULAR HEMOGLOBIN CONCENTRATION (G/DL) BY AUTOMATED 32.9 g/dL Normal 32.0-35.0 [facility] Comment on above: Performed By: #### L [id number] ####[facility] [[email or web address] [place] [address] Hematocrit (Bld) [Volume fraction] 42.6 % Normal 36.0-48.0 [facility] Comment on above: Performed By: #### L [id number] ####[facility] [[email or web address]] LAB ([facility])[address] [place] [address] Hemoglobin (Bld) [Mass/Vol] 14.0 g/dL Normal 12.0-15.0 [facility] Comment on above: Performed By: #### L [id number] ####[facility] [[email or web address]] LAB ([facility])[address] [place] [address] Immature granulocytes (Bld) [#/Vol] 0.02 10*3/uL Normal 0.00-0.20 [facility] Comment on above: Performed By: #### L [id number] ####[facility] [[email or web address]] LAB ([facility])[address] [place] [address] Immature granulocytes/100 WBC (Bld) 0.2 % Normal 0.0-1.0 [facility] Comment on above: Performed By: #### L [id number] ####[facility] [[email or web address]] LAB ([facility])[address] [place] [address] Lymphocytes (Bld) [#/Vol] 3.34 10*3/uL Normal 1.20-4.00 [facility] Comment on above: Performed By: #### L [id number] ####[facility] [[email or web address]] LAB (BE[facility])[address] [place] [address] Lymphocytes/100 WBC (Bld) 31.7 % Normal 20.0-45.0 [facility] Comment on above: Performed By: #### L [id number] ####[facility] [[email or web address]] LAB (BE[facility])[address] [place] [address] MCH (RBC) [Entitic mass] 28.3 pg Normal 27.0-33.0 [facility] Comment on above: Performed By: #### L [id number] ####[facility] [[email or web address]] LAB ([facility])[address] [place] [address] MCV (RBC) [Entitic vol] 86.2 fL Normal 82.0-98.0 [facility] Comment on above: Performed By: #### L [id number] ####[facility] [[email or web address]] LAB (BE[facility]ER)[address] [place] [address] Monocytes (Bld) [#/Vol] 0.60 10*3/uL Normal 0.10-1.00 [facility] Comment on above: Performed By: #### L [id number] ####[facility]OSP[facility] LAB (BEAKER)[address] [place] [address] Monocytes/100 WBC (Bld) 5.7 % Normal 5.0-12.0 [facility] Comment on above: Performed By: #### L [id number] ####[facility] [[email or web address]] LAB (BE[facility]ER)[address] [place] [address] Neutrophils (Bld) [#/Vol] 6.01 10*3/uL Normal 1.60-7.60 [facility] Comment on above: Performed By: #### L [id number] ####[facility] [[email or web address]] LAB (BEAKER)[address] [place] [address] Neutrophils/100 WBC (Bld) 57.2 % Normal 40.0-72.0 [facility] Comment on above: Performed By: #### L [id number] ####[facility] [[email or web address]] LAB (BEAKER)[address] [place] [address] NRBC (PER 100 WBCS) BY AUTOMATED COUNT 0.0 % Normal 0 [facility] Comment on above: Performed By: #### L [id number] ####[facility] [[email or web address]] LAB (BEAKER)[address] [place] [address] PLATELETS (10*3/UL) IN BLOOD AUTOMATED COUNT 329 10*3/uL Normal 150-400 [facility] Comment on above: Performed By: #### L [id number] ####[facility] LAB (BEAKER)[address] [place] [address] RBC (Bld) [#/Vol] 4.94 10*6/uL Normal 3.80-5.00 [facility] Comment on above: Performed By: #### L [id number] ####[facility] [[email or web address]] LAB (BEAKER)[address] [place] [address] WBC (Bld) [#/Vol] 10.52 10*3/uL Normal 4.00-10.[address] [facility] Comment on above: Performed By: #### L [id number] ####[facility] LAB (ANDRIY)[address] [place] [address] HPon 07-10-2023 HP History Of Present Illness [...] Problems: Junctional bradycardia Pacemaker Loree Chance MD [facility] 30on 07-09-2023 30 Problem: Cardiovascular - Adult [...] pacemaker placement without issues Normal [facility] 30 Daily Case Managemen t Update Multidisciplinary [...] and Management 07/06/23 1050 Normal [facility] BASIC METABOLIC PANELon 06-15 Anion gap [Moles/Vol] 9 mmol/L Normal 7-20 [facility] Comment on above: Performed By: #### L [id number] #### [facility] [email or web address] LAB ([facility]) [address] [place] [address] Calcium [Mass/Vol] 9.1 mg/dL Normal 8.6-10.3 [facility] Comment on above: Performed By: #### L [id number] #### [facility] [[email or web address] LAB ([facility]) [address] [place] [address] Chloride [Moles/Vol] 99 mmol/L Normal 98-[address] [facility] Comment on above: Performed By: #### L [id number] #### [facility] [[email or web address] LAB ([facility]) [address] [place] [address] CO2 [Moles/Vol] 32 mmol/L High 21-31 [facility] Comment on above: Performed By: #### L [id number] #### [facility] [[email or web address] LAB ([facility]) [address] [place] [address] Creatinine [Mass/Vol] 0.98 mg/dL Normal 0.60-1.20 [facility] Comment on above: Performed By: #### L [id number] #### [facility] [[email or web address] LAB ([facility]) [address] [place] [address] GLOMERULAR FILTRATION RATE ML/MIN/1.73 SQ M.PREDICTED 65.3 mL/min/1.73m*2 Normal >60.0 [facility] Comment on above: Result Comment: The [facility]???s estimated glomerular filtration rate (eGFR) will no [...] individuals. Performed By: #### L [id number] #### [facility] [[email or web address] LAB ([facility]) [address] [place] [address] Glucose [Mass/Vol] 131 mg/dL High 70-100 [facility] Comment on above: Performed By: #### L [id number] #### [facility] [[email or web address] LAB ([facility]) [address] [place] [address] Potassium [Moles/Vol] 4.3 mmol/L Normal 3.5-5.1 [facility] Comment on above: Performed By: #### L [id number] #### [facility] [[email or web address] LAB ([facility]) [address] [place] [address] Sodium [Moles/Vol] 136 mmol/L Normal 136-145 [facility] Comment on above: Performed By: #### L [id number] #### [facility] [[email or web address] LAB ([facility]) [address] [place] [address] Urea nitrogen [Mass/Vol] 23 mg/dL Normal 7-25 [facility] Comment on above: Performed By: #### L [id number] #### [facility] [[email or web address] LAB ([facility]) [address] [place] [address] UREA NITROGEN/CREATININE (MASS RATIO) IN SER/PLAS 23.5 Normal [facility] Comment on above: Performed By: #### L [id number] #### [facility] [[email or web address] LAB ([facility]) [address] [place] [address] CBC WITH AUTO DIFFERENTIALon 07-09-2023 Basophils (Bld) [#/Vol] 0.03 10*3/uL Normal 0.00-0.20 [facility] Comment on above: Performed By: #### L [id number] #### [facility] [[email or web address] LAB ([facility]) [address] [place] [address] Basophils/100 WBC (Bld) 0.3 % Normal 0.0-1.0 [facility] Comment on above: Performed By: #### L [id number] #### [facility] ([facility]) [address] [place] [address] Eosinophils (Bld) [#/Vol] 0.54 10*3/uL High 0.00-0.50 [facility] Comment on above: Performed By: #### L [id number] #### [facility] [[email or web address] LAB ([facility]) [address] [place] [address] Eosinophils/100 WBC (Bld) 4.9 % Normal 0.0-6.0 [facility] Comment on above: Performed By: #### L [id number] #### [facility] [[email or web address] LAB ([facility]) [address] [place] [address] Erythrocyte distribution width (RBC) [Ratio] 15.0 % Normal 11.5-15.0 [facility] Comment on above: Performed By: #### L [id number] #### [facility] [[email or web address] LAB ([facility]) [address] [place] [address] ERYTHROCYTE MEAN CORPUSCULAR HEMOGLOBIN CONCENTRATION (G/DL) BY AUTOMATED 32.8 g/dL Normal 32.0-35.0 [facility] Comment on above: Performed By: #### L [id number] #### [facility] [[email or web address] LAB ([facility]) [address] [place] [address] Hematocrit (Bld) [Volume fraction] 37.5 % Normal 36.0-48.0 [facility] Comment on above: Performed By: #### L [id number] #### [facility] [[email or web address] [address] [place] [address] Hemoglobin (Bld) [Mass/Vol] 12.3 g/dL Normal 12.0-15.0 [facility] Comment on above: Performed By: #### L [id number] #### [facility] [[email or web address] LAB ([facility]) [address] [place] [address] Immature granulocytes (Bld) [#/Vol] 0.03 10*3/uL Normal 0.00-0.20 [facility] Comment on above: Performed By: #### L [id number] #### [facility] [[email or web address] LAB ([facility]) [address] [place] [address] Immature granulocytes/100 WBC (Bld) 0.3 % Normal 0.0-1.0 [facility] Comment on above: Performed By: #### L [id number] #### [email or web address] LAB ([facility]) [address] [facility] [place] [address] Lymphocytes (Bld) [#/Vol] 3.76 10*3/uL Normal 1.20-4.00 [facility] Comment on above: Performed By: #### L [id number] #### [email or web address] LAB ([facility]) [address] [facility] [place] [address] Lymphocytes/100 WBC (Bld) 34.1 % Normal 20.0-45.0 [facility] Comment on above: Performed By: #### L [id number] #### [facility] [[email or web address] LAB ([facility]) [address] [place] [address] MCH (RBC) [Entitic mass] 28.5 pg Normal 27.0-33.0 [facility] Comment on above: Performed By: #### L [id number] #### [facility] [[email or web address] LAB ([facility]) [address] [place] [address] MCV (RBC) [Entitic vol] 87.0 fL Normal 82.0-98.0 [facility] Comment on above: Performed By: #### L [id number] #### [facility] [[email or web address] LAB ([facility]) [address] [facility] [place] [address] Monocytes (Bld) [#/Vol] 0.64 10*3/uL Normal 0.10-1.00 [facility] Comment on above: Performed By: #### L [id number] #### [email or web address] LAB ([facility]) [address] [facility] [place] [address] Monocytes/100 WBC (Bld) 5.8 % Normal 5.0-12.0 [facility] Comment on above: Performed By: #### L [id number] #### [email or web address] [address] [place] [address] Neutrophils (Bld) [#/Vol] 6.03 10*3/uL Normal 1.60-7.60 [facility] Comment on above: Performed By: #### L [id number] #### [email or web address] [address] [place] [address] Neutrophils/100 WBC (Bld) 54.6 % Normal 40.0-72.0 [facility] Comment on above: Performed By: #### L [id number] #### [facility] [[email or web address] LAB ([facility]) [address] [place] [address] NRBC (PER 100 WBCS) BY AUTOMATED COUNT 0.0 % Normal 0 [facility] Comment on above: Performed By: #### L [id number] #### [facility] [[email or web address] LAB ([facility]) [address] [place] [address] PLATELETS (10*3/UL) IN BLOOD AUTOMATED COUNT 285 10*3/uL Normal 150-400 [facility] Comment on above: Performed By: #### L [id number] #### [facility] [[email or web address] LAB ([facility]) [address] [place] [address] RBC (Bld) [#/Vol] 4.31 10*6/uL Normal 3.80-5.00 [facility] Comment on above: Performed By: #### L [id number] #### [email or web address] [address] [place] [address] WBC (Bld) [#/Vol] 11.03 10*3/uL High 4.00-10.[address] [facility] Comment on above: Performed By: #### L [id number] #### [email or web address] [address] [place] [address] 30on 07-08-2023 30 The patient is Moderately [...] nutritional intake Outcome: Progressing Normal [facility] 30 Problem: Cardiovascular - Adult Goal: Maintains [...] shift include stable bp Normal [facility] BASIC METABOLIC PANELon 06-15 Anion gap [Moles/Vol] 10 mmol/L Normal 7-20 [facility] Comment on above: Performed By: #### L [id number] ####[facility] [[email or web address] LAB ([facility])[address] [place] [address] Calcium [Mass/Vol] 9.0 mg/dL Normal 8.6-10.3 [facility] Comment on above: Performed By: #### L [id number] ####[facility] [[email or web address] ([facility] [place] [address] Chloride [Moles/Vol] 97 mmol/L Low 98-[address] [facility] Comment on above: Performed By: #### L [id number] ####[facility] [[email or web address]] LAB ([facility])[address] [place] [address] CO2 [Moles/Vol] 33 mmol/L High 21-31 [facility] Comment on above: Performed By: #### L [id number] ####[facility] [[email or web address]] LAB ([facility])[address] [place] [address] Creatinine [Mass/Vol] 1.30 mg/dL High 0.60-1.20 [facility] Comment on above: Performed By: #### L [id number] ####[facility] [[email or web address] LAB ([facility])[address] [place] [address] GLOMERULAR FILTRATION RATE ML/MIN/1.73 SQ M.PREDICTED 46.5 mL/min/1.73m*2 Low >60.0 [facility] Comment on above: Result Comment: The [facility]???s estimated glomerular filtration rate (eGFR) will no [...] of individuals. Performed By: #### L [id number] ####[facility] [[email or web address] LAB ([facility])[address] [place] [address] Glucose [Mass/Vol] 214 mg/dL High 70-100 [facility] Comment on above: Performed By: #### L [id number] ####[facility] [[email or web address] LAB ([facility])[address] [place] [address] Potassium [Moles/Vol] 3.9 mmol/L Normal 3.5-5.1 [facility] Comment on above: Performed By: #### L [id number] ####[facility] [[email or web address] LAB ([facility])[address] [place] [address] Sodium [Moles/Vol] 136 mmol/L Normal 136-145 [facility] Comment on above: Performed By: #### L [id number] ####[facility] [[email or web address] LAB ([facility])[address] [place] [address] Urea nitrogen [Mass/Vol] 26 mg/dL High 7-25 [facility] Comment on above: Performed By: #### L [id number] ####[facility] [place] [address] UREA NITROGEN/CREATININE (MASS RATIO) IN SER/PLAS 20.0 Normal [facility] Comment on above: Performed By: #### L [id number] ####[facility] [[email or web address] LAB ([facility])[address] [place] [address] CBC WITH AUTO DIFFERENTIALon 07-08-2023 Basophils (Bld) [#/Vol] 0.04 10*3/uL Normal 0.00-0.20 [facility] Comment on above: Performed By: #### L [id number] #### [facility] [[email or web address] LAB ([facility]) [address] [place] [address] Basophils/100 WBC (Bld) 0.3 % Normal 0.0-1.0 [facility] Comment on above: Performed By: #### L [id number] #### [facility] [[email or web address] LAB ([facility]) [address] [place] [address] Eosinophils (Bld) [#/Vol] 0.51 10*3/uL High 0.00-0.50 [facility] Comment on above: Performed By: #### L [id number] #### [facility] [[email or web address] LAB ([facility]) [address] [place] [address] Eosinophils/100 WBC (Bld) 4.1 % Normal 0.0-6.0 [facility] Comment on above: Performed By: #### L [id number] #### [facility] [[email or web address] LAB ([facility]) [address] [place] [address] Erythrocyte distribution width (RBC) [Ratio] 15.0 % Normal 11.5-15.0 [facility] Comment on above: Performed By: #### L [id number] #### [facility] [[email or web address] LAB ([facility]) [address] [place] [address] ERYTHROCYTE MEAN CORPUSCULAR HEMOGLOBIN CONCENTRATION (G/DL) BY AUTOMATED 31.9 g/dL Low 32.0-35.0 [facility] Comment on above: Performed By: #### L [id number] #### [facility] [[email or web address] LAB ([facility]) [address] [place] [address] Hematocrit (Bld) [Volume fraction] 37.9 % Normal 36.0-48.0 [facility] Comment on above: Performed By: #### L [id number] #### [facility] [[email or web address] LAB ([facility]) [address] [place] [address] Hemoglobin (Bld) [Mass/Vol] 12.1 g/dL Normal 12.0-15.0 [facility] Comment on above: Performed By: #### L [id number] #### [facility] [[email or web address] LAB ([facility]) [address] [place] [address] Immature granulocytes (Bld) [#/Vol] 0.04 10*3/uL Normal 0.00-0.20 [facility] Comment on above: Performed By: #### L [id number] #### [facility] [[email or web address] LAB ([facility]) [address] [place] [address] Immature granulocytes/100 WBC (Bld) 0.3 % Normal 0.0-1.0 [facility] Comment on above: Performed By: #### L [id number] #### [facility] [[email or web address] LAB ([facility]) [address] [place] [address] Lymphocytes (Bld) [#/Vol] 4.00 10*3/uL Normal 1.20-4.00 [facility] Comment on above: Performed By: #### L [id number] #### [facility] [[email or web address] LAB ([facility]) [address] [place] [address] Lymphocytes/100 WBC (Bld) 32.1 % Normal 20.0-45.0 [facility] Comment on above: Performed By: #### L [id number] #### [facility] [[email or web address] LAB ([facility]) [address] [place] [address] MCH (RBC) [Entitic mass] 28.1 pg Normal 27.0-33.0 [facility] Comment on above: Performed By: #### L [id number] #### [facility] [[email or web address] LAB ([facility]) [address] [place] [address] MCV (RBC) [Entitic vol] 87.9 fL Normal 82.0-98.0 [facility] Comment on above: Performed By: #### L [id number] #### [facility] ([facility]) [address] [place] [address] Monocytes (Bld) [#/Vol] 0.85 10*3/uL Normal 0.10-1.00 [facility] Comment on above: Performed By: #### L [id number] #### [facility] [[email or web address] LAB ([facility]) [address] [place] [address] Monocytes/100 WBC (Bld) 6.8 % Normal 5.0-12.0 [facility] Comment on above: Performed By: #### L [id number] #### [facility] [[email or web address] LAB ([facility]) [address] [place] [address] Neutrophils (Bld) [#/Vol] 7.02 10*3/uL Normal 1.60-7.60 [facility] Comment on above: Performed By: #### L [id number] #### [facility] [[email or web address] LAB ([facility]) [address] [place] [address] Neutrophils/100 WBC (Bld) 56.4 % Normal 40.0-72.0 [facility] Comment on above: Performed By: #### L [id number] #### [facility] [[email or web address] LAB ([facility]) [address] [place] [address] NRBC (PER 100 WBCS) BY AUTOMATED COUNT 0.0 % Normal 0 [facility] Comment on above: Performed By: #### L [id number] #### [facility] [[email or web address] LAB ([facility]) [address] [place] [address] PLATELETS (10*3/UL) IN BLOOD AUTOMATED COUNT 301 10*3/uL Normal 150-400 [facility] Comment on above: Performed By: #### L [id number] #### [email or web address] [address] [place] [address] RBC (Bld) [#/Vol] 4.31 10*6/uL Normal 3.80-5.00 [facility] Comment on above: Performed By: #### L [id number] #### [facility] [[email or web address] LAB ([facility]) [address] [place] [address] WBC (Bld) [#/Vol] 12.46 10*3/uL High 4.00-10.[address] [facility] Comment on above: Performed By: #### L [id number] #### [facility] [[email or web address] LAB ([facility]) [address] [place] [address] 30on 07-07-2023 30 The patient is Moderately Stable - Low risk of patient condition declining or worsening The patient's goals for the shift include comfort The clinical goals for the shift include vss Normal [facility] 30 Problem: Cardiovascular - Adult Goal: Maintains [...] membranes remain intact Outcome: Progressing Flowsheets (Taken 07/07/2023 0839) Oral mucous membranes remain intact: Assess oral [...] (more content not included)... Normal [facility] BASIC METABOLIC PANELon 02-2 Anion gap [Moles/Vol] 12 mmol/L Normal 7-20 [facility] Comment on above: Performed By: #### L [id number] #### [email or web address] [address] [place] [address] Calcium [Mass/Vol] 9.2 mg/dL Normal 8.6-10.3 [facility] Comment on above: Performed By: #### L [id number] #### [facility] [[email or web address] LAB ([facility]) [address] [place] [address] Chloride [Moles/Vol] 97 mmol/L Low 98-[address] [facility] Comment on above: Performed By: #### L [id number] #### [facility] [[email or web address] [address] [place] [address] CO2 [Moles/Vol] 31 mmol/L Normal 21-31 [facility] Comment on above: Performed By: #### L [id number] #### [email or web address] [address] [place] [address] Creatinine [Mass/Vol] 1.06 mg/dL Normal 0.60-1.20 [facility] Comment on above: Performed By: #### L [id number] #### [email or web address] [address] [place] [address] GLOMERULAR FILTRATION RATE ML/MIN/1.73 SQ M.PREDICTED 59.4 mL/min/1.73m*2 Low >60.0 [facility] Comment on above: Result Comment: The [facility]???s estimated glomerular filtration rate (eGFR) will no [...] individuals. Performed By: #### L [id number] #### [facility] [[email or web address] LAB ([facility]) [address] [place] [address] Glucose [Mass/Vol] 119 mg/dL High 70-100 [facility] Comment on above: Performed By: #### L [id number] #### [facility] [[email or web address] LAB ([facility]) [address] [place] [address] Potassium [Moles/Vol] 4.6 mmol/L Normal 3.5-5.1 [facility] Comment on above: Performed By: #### L [id number] #### [facility] [[email or web address] LAB ([facility]) [address] [place] [address] Sodium [Moles/Vol] 135 mmol/L Low 136-145 [facility] Comment on above: Performed By: #### L [id number] #### [facility] [[email or web address] LAB ([facility]) [address] [place] [address] Urea nitrogen [Mass/Vol] 21 mg/dL Normal 7-25 [facility] Comment on above: Performed By: #### L [id number] #### [facility] [[email or web address] LAB ([facility]) [address] [place] [address] UREA NITROGEN/CREATININE (MASS RATIO) IN SER/PLAS 19.8 Normal [facility] Comment on above: Performed By: #### L [id number] #### [facility] [[email or web address] LAB ([facility]) [address] [place] [address] CBC WITH AUTO DIFFERENTIALon 07-07-2023 Basophils (Bld) [#/Vol] 0.05 10*3/uL Normal 0.00-0.20 [facility] Comment on above: Performed By: #### L [id number] #### [facility] [[email or web address] LAB ([facility]) [address] [place] [address] Basophils/100 WBC (Bld) 0.3 % Normal 0.0-1.0 [facility] Comment on above: Performed By: #### L [id number] #### [email or web address] [address] [place] [address] Eosinophils (Bld) [#/Vol] 0.38 10*3/uL Normal 0.00-0.50 [facility] Comment on above: Performed By: #### L [id number] #### [facility] [[email or web address] LAB ([facility]) [address] [place] [address] Eosinophils/100 WBC (Bld) 2.5 % Normal 0.0-6.0 [facility] Comment on above: Performed By: #### L [id number] #### [facility] [[email or web address] LAB ([facility]) [address] [place] [address] Erythrocyte distribution width (RBC) [Ratio] 15.5 % High 11.5-15.0 [facility] Comment on above: Performed By: #### L [id number] #### [facility] [[email or web address]] LAB ([facility]) [address] [place] [address] ERYTHROCYTE MEAN CORPUSCULAR HEMOGLOBIN CONCENTRATION (G/DL) BY AUTOMATED 32.0 g/dL Normal 32.0-35.0 [facility] Comment on above: Performed By: #### L [id number] #### [facility] [[email or web address]] LAB ([facility]) [address] [place] [address] Hematocrit (Bld) [Volume fraction] 38.8 % Normal 36.0-48.0 [facility] Comment on above: Performed By: #### L [id number] #### [facility] [[email or web address]] LAB ([facility]) [address] [place] [address] Hemoglobin (Bld) [Mass/Vol] 12.4 g/dL Normal 12.0-15.0 [facility] Comment on above: Performed By: #### L [id number] #### [facility] [[email or web address]] LAB ([facility]) [address] [place] [address] Immature granulocytes (Bld) [#/Vol] 0.05 10*3/uL Normal 0.00-0.20 [facility] Comment on above: Performed By: #### L [id number] #### [facility] [[email or web address]] LAB ([facility]) [address] [place] [address] Immature granulocytes/100 WBC (Bld) 0.3 % Normal 0.0-1.0 [facility] Comment on above: Performed By: #### L [id number] #### [facility] [[email or web address] [facility]) [address] [place] [address] Lymphocytes (Bld) [#/Vol] 3.99 10*3/uL Normal 1.20-4.00 [facility] Comment on above: Performed By: #### L [id number] #### [facility] [[email or web address] LAB ([facility]) [address] [place] [address] Lymphocytes/100 WBC (Bld) 26.5 % Normal 20.0-45.0 [facility] Comment on above: Performed By: #### L [id number] #### [facility] [[email or web address] LAB ([facility]) [address] [place] [address] MCH (RBC) [Entitic mass] 27.9 pg Normal 27.0-33.0 [facility] Comment on above: Performed By: #### L [id number] #### [facility] [[email or web address] LAB ([facility]) [address] [place] [address] MCV (RBC) [Entitic vol] 87.4 fL Normal 82.0-98.0 [facility] Comment on above: Performed By: #### L [id number] #### [facility] [[email or web address]) [address] [place] [address] Monocytes (Bld) [#/Vol] 1.25 10*3/uL High 0.10-1.00 [facility] Comment on above: Performed By: #### L [id number] #### [facility] [[email or web address] [address] [facility] [place] [address] Monocytes/100 WBC (Bld) 8.3 % Normal 5.0-12.0 [facility] Comment on above: Performed By: #### L [id number] #### [facility] [[email or web address] LAB ([facility]) [address] [place] [address] Neutrophils (Bld) [#/Vol] 9.31 10*3/uL High 1.60-7.60 [facility] Comment on above: Performed By: #### L [id number] #### [facility] [[email or web address] ([facility]) [address] [place] [place] [address] Neutrophils/100 WBC (Bld) 62.1 % Normal 40.0-72.0 [facility] Comment on above: Performed By: #### L [id number] #### [facility] [[email or web address] LAB ([facility]) [address] [place] [address] NRBC (PER 100 WBCS) BY AUTOMATED COUNT 0.0 % Normal 0 [facility] Comment on above: Performed By: #### L [id number] #### [facility] [[email or web address] LAB ([facility]) [address] [place] [address] PLATELETS (10*3/UL) IN BLOOD AUTOMATED COUNT 300 10*3/uL Normal 150-400 [facility] Comment on above: Performed By: #### L [id number] #### [facility] [[email or web address] LAB ([facility]) [address] [place] [address] RBC (Bld) [#/Vol] 4.44 10*6/uL Normal 3.80-5.00 [facility] Comment on above: Performed By: #### L [id number] #### [facility] [[email or web address] LAB ([facility]) [address] [place] [address] WBC (Bld) [#/Vol] 15.03 10*3/uL High 4.00-10.[address] [facility] Comment on above: Performed By: #### L [id number] #### [facility] [[email or web address] ([facility]) [address] [place] [address] MAGNESIUMon 07-07-2023 Magnesium [Mass/Vol] 2.3 mg/dL Normal 1.9-2.[address] [facility] Comment on above: Performed By: #### L [id number] #### [facility] [[email or web address] ([facility]) [address] [place] [address] 30on 07-06-2023 30 Daily Case Managemen t [...] and Management 07/06/23 1050 Normal [facility] 30 The patient is Moderately Stable - [...] or improved Outcome: Progressing Normal [facility] 30 The patient is Moderately Stable - Low risk of patient condition declining or worsening The patient's goals for the shift include comfort The clinical goals for the shift include VSS [facility] 30 The patient is Moderately Stable - Low risk of patient condition declining or worsening The patient's goals for the shift include comfort The clinical goals for the shift include VSS [facility] APTTon 07-06-2023 ACTIVATED PARTIAL THROMBOPLASTIN TIME IN PPP BY COAGULATION ASSAY 25.3 Seconds Normal 25.0-35.0 [facility] Comment on above: Result Comment: Clin ical significance of the APTT is questionable in the presence of heparin. Performed By: #### L [id number] #### [facility] [[email or web address] ([facility]) [address] [place] [address] B-TYPE NATRIURETIC PEPTIDEon 07-06-2023 Natriuretic peptide B (Bld) [Mass/Vol] 721 pg/mL High 0-100 [facility] Comment on above: Performed By: #### L [id number] #### [facility] [[email or web address] LAB ([facility]) [address] [facility] [facility] [place] [address] BLOOD CULTUREon 07-06-2023 Bacteria identified Cx Nom (Bld) No growth at 5 days Normal [facility] Comment on above: Performed By: #### L [id number] ####[facility] [[email or web address]] LAB ([facility])[address] [place] [address] Order Comment: From a different site than #1. Performed By: #### L [id number] #### [facility] [[email or web address] LAB ([facility]) [address] [facility] [facility] [place] [address] CBC WITH AUTO DIFFERENTIALon 07-06-2023 Basophils (Bld) [#/Vol] 0.03 10*3/uL Normal 0.00-0.20 [facility] Comment on above: Performed By: #### L [id number] ####[facility] [[email or web address] ([facility])[address] [place] [address] Basophils/100 WBC (Bld) 0.2 % Normal 0.0-1.0 [facility] Comment on above: Performed By: #### L [id number] ####[facility] [[email or web address] ([facility])[address] [place] [address] Eosinophils (Bld) [#/Vol] 0.11 10*3/uL Normal 0.00-0.50 [facility] Comment on above: Performed By: #### L [id number] ####[facility] [[email or web address] LAB ([facility])[address] [place] [address] Eosinophils/100 WBC (Bld) 0.8 % Normal 0.0-6.0 [facility] Comment on above: Performed By: #### L [id number] ####[facility] [[email or web address] LAB ([facility])[address] [place] [address] Erythrocyte distribution width (RBC) [Ratio] 15.1 % High 11.5-15.0 [facility] Comment on above: Performed By: #### L [id number] ####[facility] [[email or web address] LAB ([facility])[address] [place] [address] ERYTHROCYTE MEAN CORPUSCULAR HEMOGLOBIN CONCENTRATION (G/DL) BY AUTOMATED 32.3 g/dL Normal 32.0-35.0 [facility] Comment on above: Performed By: #### L [id number] ####[facility] [[email or web address] ([facility])[address] [place] [address] Hematocrit (Bld) [Volume fraction] 39.0 % Normal 36.0-48.0 [facility] Comment on above: Performed By: #### L [id number] ####[facility] [[email or web address]] LAB ([facility])[address] [place] [address] Hemoglobin (Bld) [Mass/Vol] 12.6 g/dL Normal 12.0-15.0 [facility] Comment on above: Performed By: #### L [id number] ####[facility] [[email or web address]] LAB ([facility])[address] [place] [address] Immature granulocytes (Bld) [#/Vol] 0.04 10*3/uL Normal 0.00-0.20 [facility] Comment on above: Performed By: #### L [id number] ####[facility] [[email or web address]] LAB ([facility])[address] [place] [address] Immature granulocytes/100 WBC (Bld) 0.3 % Normal 0.0-1.0 [facility] Comment on above: Performed By: #### L [id number] ####[facility] [[email or web address]] LAB ([facility])[address] [place] [address] Lymphocytes (Bld) [#/Vol] 2.75 10*3/uL Normal 1.20-4.00 [facility] Comment on above: Performed By: #### L [id number] ####[facility] [[email or web address]] LAB ([facility])[address] [place] [address] Lymphocytes/100 WBC (Bld) 19.1 % Low 20.0-45.0 [facility] Comment on above: Performed By: #### L [id number] ####[facility] [[email or web address] ([facility] [place] [address] MCH (RBC) [Entitic mass] 27.9 pg Normal 27.0-33.0 [facility] Comment on above: Performed By: #### L [id number] ####[facility] [[email or web address]] LAB ([facility])[address] [place] [address] MCV (RBC) [Entitic vol] 86.5 fL Normal 82.0-98.0 [facility] Comment on above: Performed By: #### L [id number] ####[facility] [[email or web address] ([facility] [place] [address] Monocytes (Bld) [#/Vol] 1.31 10*3/uL High 0.10-1.00 [facility] Comment on above: Performed By: #### L [id number] ####[facility] [[email or web address] LAB ([facility])[address] [place] [address] Monocytes/100 WBC (Bld) 9.1 % Normal 5.0-12.0 [facility] Comment on above: Performed By: #### L [id number] ####[facility] [[email or web address]] LAB ([facility])[address] [place] [address] Neutrophils (Bld) [#/Vol] 10.18 10*3/uL High 1.60-7.60 [facility] Comment on above: Performed By: #### L [id number] ####[facility] [[email or web address]] LAB ([facility])[address] [place] [address] Neutrophils/100 WBC (Bld) 70.5 % Normal 40.0-72.0 [facility] Comment on above: Performed By: #### L [id number] ####[facility] [[email or web address] [place] [address] NRBC (PER 100 WBCS) BY AUTOMATED COUNT 0.0 % Normal 0 [facility] Comment on above: Performed By: #### L [id number] ####[facility] [[email or web address]] LAB ([facility])[address] [place] [address] PLATELETS (10*3/UL) IN BLOOD AUTOMATED COUNT 321 10*3/uL Normal 150-400 [facility] Comment on above: Performed By: #### L [id number] ####[facility] [[email or web address] LAB ([facility])[address] [place] [address] RBC (Bld) [#/Vol] 4.51 10*6/uL Normal 3.80-5.00 [facility] Comment on above: Performed By: #### L [id number] ####[facility] [[email or web address] LAB ([facility])[address] [place] [address] WBC (Bld) [#/Vol] 14.42 10*3/uL High 4.00-10.[address] [facility] Comment on above: Performed By: #### L [id number] ####[facility] [[email or web address]] LAB ([facility])[address] [place] [address] CKon 07-06-2023 CREATINE KINASE (U/L) IN SER/PLAS 36.0 U/L Normal 30.0-223.0 [facility] Comment on above: Performed By: #### L [id number] #### [facility] [[email or web address] [address] [place] [address] COMPREHENSIVE METABOLIC PANE Pollo 07-06-2023 Albumin [Mass/Vol] 4.6 g/dL Normal 3.5-5.7 [facility] Comment on above: Performed By: #### L [id number] #### [facility] [[email or web address] ([facility]) [address] [place] [address] ALP [Catalytic activity/Vol] 47 U/L Normal 34-104 [facility] Comment on above: Performed By: #### L [id number] #### [facility] LAB ([facility]) [address] [place] [address] ALT [Catalytic activity/Vol] 13 U/L Normal 7-52 [facility] Comment on above: Performed By: #### L [id number] #### [facility] LAB ([facility]) [address] [place] [address] Anion gap [Moles/Vol] 14 mmol/L Normal 7-20 [facility] Comment on above: Performed By: #### L [id number] #### [facility] [[email or web address]] LAB ([facility]) [address] [place] [address] AST [Catalytic activity/Vol] 17 U/L Normal 13-39 [facility] Comment on above: Performed By: #### L [id number] #### [facility] [[email or web address]] LAB ([facility]) [address] [place] [address] Bilirubin [Mass/Vol] 0.5 mg/dL Normal 0.3-1.[address] [facility] Comment on above: Performed By: #### L [id number] #### [facility] [[email or web address]] LAB ([facility]) [address] [place] [address] Calcium [Mass/Vol] 8.9 mg/dL Normal 8.6-10.3 [facility] Comment on above: Performed By: #### L [id number] #### [facility] LAB ([facility]) [address] [place] [address] Chloride [Moles/Vol] 98 mmol/L Normal 98-[address] [facility] Comment on above: Performed By: #### L [id number] #### [facility] LAB ([facility]) [address] [place] [address] CO2 [Moles/Vol] 28 mmol/L Normal 21-31 [facility] Comment on above: Performed By: #### L [id number] #### [facility] LAB ([facility]) [address] [place] [address] Creatinine [Mass/Vol] 1.23 mg/dL High 0.60-1.20 [facility] Comment on above: Performed By: #### L [id number] #### [facility] [[email or web address]] LAB ([facility]) [address] [place] [address] GLOMERULAR FILTRATION RATE ML/MIN/1.73 SQ M.PREDICTED 49.7 mL/min/1.73m*2 Low >60.0 [facility] Comment on above: Result Comment: The [facility]???s estimated glomerular filtration rate (eGFR) will no [...] individuals. Performed By: #### L [id number] #### [facility] [[email or web address]] LAB ([facility]) [address] [place] [address] Glucose [Mass/Vol] 119 mg/dL High 70-100 [facility] Comment on above: Performed By: #### L [id number] #### [facility] [[email or web address] LAB ([facility]) [address] [place] [address] Potassium [Moles/Vol] 4.6 mmol/L Normal 3.5-5.1 [facility] Comment on above: Performed By: #### L [id number] #### [facility] [[email or web address] LAB ([facility]) [address] [place] [address] Protein [Mass/Vol] 6.8 g/dL Normal 6.0-8.3 [facility] Comment on above: Performed By: #### L [id number] #### [facility] [[email or web address] LAB ([facility]) [address] [place] [address] Sodium [Moles/Vol] 135 mmol/L Low 136-145 [facility] Comment on above: Performed By: #### L [id number] #### [facility] [[email or web address]] LAB ([facility]) [address] [place] [address] Urea nitrogen [Mass/Vol] 23 mg/dL Normal 7-25 [facility] Comment on above: Performed By: #### L [id number] #### [facility] [[email or web address]] LAB ([facility]) [address] [place] [address] UREA NITROGEN/CREATININE (MASS RATIO) IN SER/PLAS 18.7 Normal [facility] Comment on above: Performed By: #### L [id number] #### [facility] [[email or web address]] LAB ([facility]) [address] [place] [address] CONSULTon 07-06-2023 CONSULT - Attestation signed by [...] of bradycardia. Patient has been transferred to [facility] for consideration of pacemaker placement. As [...] -- -- 7 (more content not included)... [facility] ED Clinical Summaryon 2023 ED Clinical Summary [address] [address] ED Clinical Summary Person Information Name: VIVIAN VANN/[facility]_Hansen Age: 63 Years : 1960 Sex: Female Language: Ecuadorean PCP: Екатерина Robert MD Marital Status: Phone: [...] 07/05/2023 22:16:25 07/05/2023 22:16:25 07/05/2023 22:16:25 ADDRESS: [facility] [id number] PHYS DOC NOTES: MEDICAL INFORMATION: Prescriptions Given: [...] 3:Tobacco abuse; 4:CHF (congestive heart failure) Normal [facility] ED Patient Education Noteon 07-06-2023 ED Patient Education Note Normal [facility] ED Patient Summaryon 024 ED Patient Summary [address] [address] Patient Discharge Instructions Person Information Name: VIVIAN VANN Age: 63 Years Arrival Date: 07/05/2023 15:01:40 Discharge Diagnosis: 1:Atrial fibrillation with slow ventricular response; 2:Elevated troponin; 3:Tobacco abuse; 4:CHF (congestive heart failure) Primary Care Physician: Екатерина Robert MD Provider Information Primary Provider: Arsenio Martin DO [employer] Tech:None The exam and treatment you received in the Emergency Department were for an urgent problem and are not intended as complete care. It is important that you follow up with a doctor, nurse practitioner, or physician?s office support assistant for ongoing care. If your symptoms [...] opioids can be used to help relieve [id number] pain and are often prescribed following a [...] be struggling with addiction, tell your health healthcare administration intern and ask for guidance or call [facility]?S National Helpline at 5-488-658-HELP. v Source: [place] Department of Health and Human Services/Center for Disease Control & Preve (more content not included)... Normal [facility] ETHANOLon 07-06-2023 ETHANOL (MG/DL) IN SER/PLAS <10 Normal [facility] Comment on above: Performed By: #### L [id number] #### [facility] [[email or web address] [address] [place] [address] ETHANOL CALCULATED (%) Normal [facility] Comment on above: Performed By: #### L [id number] #### [facility] [[email or web address] LAB ([facility]) [address] [place] [address] HEMOGLOBIN A1Con 07-06-2023 Glucose [Mass/Vol] 148 mg/dL Normal [facility] Comment on above: Performed By: #### L [id number] #### [facility] [[email or web address] LAB ([facility]) [address] [place] [address] HbA1c (Bld) [Mass fraction] 6.8 % High 4.0-6.0 [facility] Comment on above: Performed By: #### L [id number] #### [facility] [[email or web address] LAB ([facility]) [address] [place] [address] LACTIC ACID WITH 4 HOUR REFL EXon 07-06-2023 LACTATE (MMOL/L) IN SER/PLAS 1.8 mmol/L Normal 0.5-2.2 [facility] Comment on above: Performed By: #### L [id number] #### [facility] [[email or web address]] LAB ([facility]) [address] [place] [address] LIPID PANELon 07-06-2023 CHOL/HDL 3.0 mg/dL Normal [facility] Comment on above: Performed By: #### L [id number] #### [facility] [[email or web address]] LAB ([facility]) [address] [place] [address] Cholesterol [Mass/Vol] 143 mg/dL Normal 120-200 [facility] Comment on above: Performed By: #### L [id number] #### [facility] [[email or web address] LAB ([facility]) [address] [place] [address] Magnesium [Mass/Vol] 159 mg/dL High 40-[address] [facility] Comment on above: Result Comment: TRIG LYCERIDE REFERENCE RANGE: 20 YEARS AND OLDER CARDIOVASCULAR RISK LESS THAN 150 mg/dL LOW RISK 150 TO 199 mg/dL BORDERLINE RISK 200 mg/dL AND GREATER HIGH RISK Performed By: #### L [id number] #### [facility] [[email or web address] LAB ([facility]) [address] [place] [address] Magnesium [Mass/Vol] 63 mg/dL Normal 0-[address] [facility] Comment on above: Performed By: #### L [id number] #### [facility] [[email or web address] LAB ([facility]) [address] [place] [address] Magnesium [Mass/Vol] 48 mg/dL Normal 23-[address] [facility] Comment on above: Performed By: #### L [id number] #### [facility] [[email or web address] LAB ([facility]) [address] [place] [address] NON HDL CHOL. (LDL+VLDL) 95 Normal [facility] Comment on above: Performed By: #### L [id number] #### [facility] [[email or web address] LAB ([facility]) [address] [place] [address] TOTAL VLDL-C 32 mg/dL Normal 0-40 [facility] Comment on above: Performed By: #### L [id number] #### [facility] [[email or web address] LAB ([facility]) [address] [place] [address] MAGNESIUMon 07-06-2023 Magnesium [Mass/Vol] 2.2 mg/dL Normal 1.9-2.[address] [facility] Comment on above: Performed By: #### L [id number] #### [facility] [[email or web address] LAB ([facility]) [address] [place] [address] PHOSPHORUSon 07-06-2023 Magnesium [Mass/Vol] 5.2 mg/dL High 2.5-5.[address] [facility] Comment on above: Performed By: #### L [id number] #### [facility] [[email or web address] [address] [place] [address] PROTIME-INRon 07-06-2023 INR IN PPP BY COAGULATION ASSAY 1.00 Normal 0.90-1.10 [facility] Comment on above: Result Comment: [facility] FOR WARFARIN THERAPY CONDITION [...] 1995;[id number]. Performed By: #### L [id number] #### [facility] [[email or web address] LAB ([facility]) [address] [place] [address] PROTHROMBIN TIME (PT) IN PPP BY COAGULATION ASSAY 13.2 Seconds Normal 12.3-14.8 [facility] Comment on above: Performed By: #### L [id number] #### [facility] [[email or web address] [address] [place] [address] TOXICOLOGY PANEL URINEon AMPHETAMINE+METHAMPHET AMINE SCREEN (PRESENCE) IN URINE Negative Normal Negative [facility] Comment on above: Performed By: #### L [id number] #### [facility] [[email or web address] LAB ([facility]) [address] [place] [address] BARBITURATES PRESENCE IN URINE BY SCREEN METHOD Negative Normal Negative [facility] Comment on above: Performed By: #### L [id number] #### [facility] [[email or web address] [address] [place] [address] Benzodiazepines Ql (U) Positive Abnormal Negative [facility] Comment on above: Performed By: #### L [id number] #### [facility] [[email or web address] LAB ([facility]) [address] [place] [address] CANNABINOID (PRESENCE) IN URINE BY SCREEN METHOD Positive Abnormal Negative [facility] Comment on above: Performed By: #### L [id number] #### [facility] [[email or web address] LAB ([facility]) [address] [place] [address] Cocaine Ql (U) Negative Normal Negative [facility] Comment on above: Performed By: #### L [id number] #### [facility] [[email or web address] LAB ([facility]) [address] [place] [address] METHADONE (PRESENCE) IN URINE BY SCREEN METHOD Negative Normal Negative [facility] Comment on above: Performed By: #### L [id number] #### [facility] [[email or web address] LAB ([facility]) [address] [place] [address] OPIATES (PRESENCE) IN URINE BY SCREEN METHOD Negative Normal Negative [facility] Comment on above: Performed By: #### L [id number] #### [facility] [email or web address] ([facility]) [address] [place] [address] PHENCYCLIDINE PRESENCE IN URINE BY SCREEN METHOD Negative Normal Negative [facility] Comment on above: Performed By: #### L [id number] #### [facility] [[email or web address] LAB ([facility]) [address] [place] [address] Propoxyphene Screen Ql (U) Negative Normal Negative [facility] Comment on above: Performed By: #### L [id number] #### [facility] [[email or web address] LAB ([facility]) [address] [place] [address] TRICYCLIC ANTIDEPRESSANTS (PRESENCE) IN URINE Positive Abnormal Negative [facility] Comment on above: Performed By: #### L [id number] #### [email or web address] LAB ([facility]) [address] [place] [address] TROPONIN Ion 02-23-2024 Troponin I.cardiac [Mass/Vol] 0.12 ng/mL Critically high 0.00-0.04 [facility] Comment on above: Result Comment: M-MD EVIOUS CRITICAL RESULT Previous result verified on 07/06/2023 1236 on specimen/case [id number] called with component Troponin I for procedure Troponin I with value 0.11 ng/mL. Performed By: #### L [id number] #### [facility] [[email or web address] LAB ([facility]) [address] [place] [address] Troponin I.cardiac [Mass/Vol] 0.11 ng/mL Critically high 0.00-0.04 [facility] Comment on above: Result Comment: M-MD EVIOUS CRITICAL RESULT Previous result verified on 07/06/2023 0444 on specimen/case [id number] called with component Troponin I for procedure Troponin I with value 0.12 ng/mL. Performed By: #### L [id number] #### [facility] [[email or web address] LAB ([facility]) [address] [place] [address] Troponin I.cardiac [Mass/Vol] 0.12 ng/mL Critically high 0.00-0.04 [facility] Comment on above: Result Comment: M-CR ITICAL RESULT(S) REVIEWED, CALLED TO AND READ BACK BY PRIYANKA LEOS RN AT 0442 M-TROPONIN INITIAL CRITICAL HIGH; RESPUN AND RETESTED Performed By: #### L [id number] #### [facility] [[email or web address] LAB ([facility]) [address] [place] [address] TSH3 REFLEX TO FT4on 024 THYROTROPIN (MIU/L) IN SER/PLAS BY DETECTION LIMIT <= 0.05 MIU/L 4.25 mIU/L Normal 0.34-5.60 [facility] Comment on above: Performed By: #### L [id number] #### [facility] ([facility]) [address] [place] [address] Transfer Documentson Transfer Documents [id number]# 1.00TIFF Normal [facility] URINALYSIS WITH REFLEX CULTU REon 07-06-2023 BILIRUBIN, TOTAL PRESENCE IN URINE Negative Normal Negative [facility] Comment on above: Order Comment: Micro scopics not performed on urines with negative chemical reactions unless requested on original order. Performed By: #### L [id number] #### [facility] ([facility]) [address] [place] [address] Clarity (U) Clear Normal Clear [facility] Comment on above: Order Comment: Micro scopics not performed on urines with negative chemical reactions unless requested on original order. Performed By: #### L [id number] #### [facility] ([facility]) [address] [place] [address] Color (U) Yellow Normal Yellow [facility] Comment on above: Order Comment: Micro scopics not performed on urines with negative chemical reactions unless requested on original order. Performed By: #### L [id number] #### [facility] ([facility]) [address] [place] [address] Glucose (U) [Mass/Vol] mg/dL Abnormal Negative [facility] on above: Order Comment: Micro scopics not performed on urines with negative chemical reactions unless requested on original order. Performed By: #### L [id number] #### [facility] ([facility]) [address] [place] [address] HEMOGLOBIN PRESENCE IN URINE Negative Normal Negative [facility] Comment on above: Order Comment: Micro scopics not performed on urines with negative chemical reactions unless requested on original order. Performed By: #### L [id number] #### [facility] ([facility]) [address] [place] [address] Ketones Ql (U) Negative Normal Negative [facility] Comment on above: Order Comment: Micro scopics not performed on urines with negative chemical reactions unless requested on original order. Performed By: #### L [id number] #### [facility] ([facility]) [address] [place] [address] LEUKOCYTE ESTERASE PRESENCE IN URINE BY TEST STRIP Negative Normal Negative [facility] Comment on above: Order Comment: Micro scopics not performed on urines with negative chemical reactions unless requested on original order. Performed By: #### L [id number] #### [facility] ([facility]) [address] [place] [address] NITRITE PRESENCE IN URINE Negative Normal Negative [facility] Comment on above: Order Comment: Micro scopics not performed on urines with negative chemical reactions unless requested on original order. Performed By: #### L [id number] #### [facility] [[email or web address] LAB ([facility]) [address] [place] [address] pH (U) 6.0 [pH] Normal 5.0-8.0 [facility] Comment on above: Order Comment: Micro scopics not performed on urines with negative chemical reactions unless requested on original order. Performed By: #### L [id number] #### [facility] [[email or web address] LAB ([facility]) [address] [place] [address] Protein (U) [Mass/Vol] Negative Normal Negative [facility] Comment on above: Order Comment: Micro scopics not performed on urines with negative chemical reactions unless requested on original order. Performed By: #### L [id number] #### [facility] [[email or web address] LAB ([facility]) [address] [place] [address] Specific gravity (U) [Rel density] 1.013 Low 1.015-1.020 [facility] Comment on above: Order Comment: Micro scopics not performed on urines with negative chemical reactions unless requested on original order. Performed By: #### L [id number] #### [facility] ([facility]) [address] [place] [address] BILIRUBIN, TOTAL PRESENCE IN URINE Negative Normal Negative [facility] Comment on above: Order Comment: Micro scopics not performed on urines with negative chemical reactions unless requested on original order. Performed By: #### L [id number] #### [facility] [[email or web address] LAB ([facility]) [address] [place] [address] Clarity (U) Clear Normal Clear [facility] Comment on above: Order Comment: Micro scopics not performed on urines with negative chemical reactions unless requested on original order. Performed By: #### L [id number] #### [facility] ([facility]) [address] [place] [address] Color (U) Yellow Normal Yellow [facility] Comment on above: Order Comment: Micro scopics not performed on urines with negative chemical reactions unless requested on original order. Performed By: #### L [id number] #### [facility] [[email or web address] LAB ([facility]) [address] [place] [address] Glucose (U) [Mass/Vol] mg/dL Abnormal Negative [facility] Comment on above: Order Comment: Micro scopics not performed on urines with negative chemical reactions unless requested on original order. Performed By: #### L [id number] #### [facility] [[email or web address] LAB ([facility]) [address] [place] [address] HEMOGLOBIN PRESENCE IN URINE Negative Normal Negative [facility] Comment on above: Order Comment: Micro scopics not performed on urines with negative chemical reactions unless requested on original order. Performed By: #### L [id number] #### [facility] [[email or web address] LAB ([facility]) [address] [place] [address] Ketones Ql (U) Negative Normal Negative [facility] Comment on above: Order Comment: Micro scopics not performed on urines with negative chemical reactions unless requested on original order. Performed By: #### L [id number] #### [facility] [[email or web address] LAB ([facility]) [address] [place] [address] LEUKOCYTE ESTERASE PRESENCE IN URINE BY TEST STRIP Negative Normal Negative [facility] Comment on above: Order Comment: Micro scopics not performed on urines with negative chemical reactions unless requested on original order. Performed By: #### L [id number] #### [facility] [[email or web address] LAB ([facility]) [address] [place] [address] NITRITE PRESENCE IN URINE Negative Normal Negative [facility] Comment on above: Order Comment: Micro scopics not performed on urines with negative chemical reactions unless requested on original order. Performed By: #### L [id number] #### [facility] ([facility]) [address] [place] [address] pH (U) 6.0 [pH] Normal 5.0-8.0 [facility] Comment on above: Order Comment: Micro scopics not performed on urines with negative chemical reactions unless requested on original order. Performed By: #### L [id number] #### [facility] [[email or web address] LAB ([facility]) [address] [place] [address] Protein (U) [Mass/Vol] Negative Normal Negative [facility] Comment on above: Order Comment: Micro scopics not performed on urines with negative chemical reactions unless requested on original order. Performed By: #### L [id number] #### [facility] [[email or web address] LAB ([facility]) [address] [place] [address] Specific gravity (U) [Rel density] 1.017 Normal 1.015-1.020 [facility] Comment on above: Order Comment: Micro scopics not performed on urines with negative chemical reactions unless requested on original order. Performed By: #### L [id number] #### [facility] [[email or web address] LAB ([facility]) [address] [place] [address] BMPon 07-05-2023 Anion gap [Moles/Vol] 15 mmol/L Normal 6-16 [facility] Comment on above: Performed By: #### 1 7375014, 6382319, 86486836, 41539132, 8252886, 55394910, 3497871, 1168813, 1813457, 6128539 ####[facility] [address] [place] [address] BUN/Creat Ratio 15 No Units Normal 10-20 [facility] Comment on above: Performed By: #### 1 3894739, 6439911, 54232453, 51939710, 4009857, 20808187, 5524491, 1647305, 4202997, 1947451 ####[facility] [address] [place] [address] Calcium [Mass/Vol] 10.1 mg/dL Normal 8.9-11.1 [facility] Comment on above: Performed By: #### 1 3441277, 1184303, 94768598, 60881948, 1962063, 30046726, 4170003, 9912919, 4582013, 5044990 ####[facility] [address] [place] [address] Chloride [Moles/Vol] 96 mmol/L Low 101-111 [facility] Comment on above: Performed By: #### 1 1688912, 2224932, 60098151, 63271624, 6505168, 61846169, 0818938, 1527280, 1031848, 9673113 ####[facility] [address] [place] [address] CO2 [Moles/Vol] 32 mmol/L High 21-31 [facility] Comment on above: Performed By: #### 1 6259545, 5095074, 22860502, 47208361, 4739823, 26461080, 9875042, 8052801, 0750370, 9309569 ####[facility] [address] [place] [address] Creatinine [Mass/Vol] 1.5 mg/dL High 0.5-1.3 [facility] Comment on above: Performed By: #### 1 4933620, 5771281, 36435434, 19689365, 8047823, 29788908, 7002028, 5314997, 7480315, 4943521 ####[facility] [address] [place] [address] Glucose [Mass/Vol] 147 mg/dL Normal 55-199 [facility] Comment on above: Performed By: #### 1 9753544, 5855738, 75590301, 81816089, 4540283, 81865269, 8290450, 5186417, 7010837, 5560700 ####[facility] [address] [place] [address] Potassium [Moles/Vol] 5.1 mmol/L Normal 3.5-5.3 [facility] Comment on above: Performed By: #### 1 7505959, 2363698, 98552643, 34808052, 0651234, 11900571, 4212544, 6417704, 9435613, 9011279 ####[facility] [address] [place] [address] Sodium [Moles/Vol] 138 mmol/L Normal 135-145 [facility] Comment on above: Performed By: #### 1 6613610, 8975573, 57530387, 36992290, 2015481, 70129469, 6052040, 6086173, 2746161, 8308553 ####[facility] [address] [place] [address] Urea nitrogen [Mass/Vol] 22 mg/dL High 5-21 [facility] Comment on above: Performed By: #### 1 3783131, 7684540, 43321547, 91506590, 4082243, 12115322, 1491298, 8624394, 4432694, 9876096 ####[address] [address] BNPon 07-05-2023 Natriuretic peptide B (Bld) [Mass/Vol] 508 pg/mL High 5-80 [facility] Comment on above: Performed By: #### 1 7029283, 1114885, 03215658, 16338624, 9373760, 70305633, 7332452, 9389726, 1739989, 2754140 ####[address] [address] CBC w/ Auto Diffon 4 Basophil Absolute 0.1 E9/L Normal 0.0-0.2 [facility] Comment on above: Performed By: #### 1 8982590, 3901435, 42357860, 67223074, 7754084, 59451467, 8295879, 3913526, 0776488, 1336984 ####[place] [place] [address] Basophils/100 WBC (Bld) 0.7 % Normal 0.0-2.0 [facility] Comment on above: Performed By: #### 1 1500539, 9813803, 47337362, 60580736, 5538371, 38608196, 1944699, 8145165, 8065007, 5075388 ####[address] [place] [place] [id number] Eos Absolute 0.4 E9/L Normal 0.0-0.5 [facility] Comment on above: Performed By: #### 1 2690343, 7019984, 06437889, 91828740, 7693103, 97580516, 2225525, 2996634, 5650450, 1612619 ####[place] [address] Eosinophils/100 WBC (Bld) 3.7 % Normal 0.0-8.0 [facility] Comment on above: Performed By: #### 1 3646468, 4588758, 11954401, 68674049, 4790262, 84527402, 2337995, 1618772, 2833890, 8659781 ####[place] [address] Erythrocyte distribution width (RBC) [Ratio] 16.8 % High 10.9-14.2 [facility] Comment on above: Performed By: #### 1 5329236, 1064884, 88357086, 91558012, 1171503, 30409036, 9888135, 5731590, 3268266, 6700961 ####[place] [address] Hematocrit (Bld) [Volume fraction] 46.0 % Normal 34.0-46.0 [facility] Comment on above: Performed By: #### 1 4593031, 7328398, 24687832, 04225019, 7254748, 56800528, 9000952, 8323515, 1436922, 3112268 ####[place] [address] Hemoglobin (Bld) [Mass/Vol] 15.1 g/dL Normal 12.0-16.0 [facility] Comment on above: Performed By: #### 1 4474551, 2677054, 41898376, 93041674, 4898593, 08182893, 2813310, 6144355, 1771768, 4681597 ####[facility] [address] [place] [address] Lymph Absolute 3.6 E9/L Normal 1.0-4.0 [facility] Comment on above: Performed By: #### 1 7187845, 0320048, 60733038, 36777687, 9150422, 06934581, 2515126, 5884639, 9494797, 9274952 ####[address] [place] [address] Lymphocytes/100 WBC (Bld) 30.9 % Normal 14.0-50.0 [facility] Comment on above: Performed By: #### 1 4581606, 4733062, 33458361, 97299716, 6459245, 06529586, 2408777, 3325601, 0776487, 3013993 ####[facility] [address] [place] [address] MCH (RBC) [Entitic mass] 27.6 pg Normal 27.0-34.0 [facility] Comment on above: Performed By: #### 1 9975510, 3250447, 96824222, 17200751, 3652915, 45120925, 7101737, 6211503, 9003836, 3341095 ####[address] [place] [address] MCHC (RBC) [Mass/Vol] 32.8 g/dL Normal 31.4-36.0 [facility] Comment on above: Performed By: #### 1 9685491, 1421841, 86896516, 62636350, 6616998, 51061866, 1163496, 0324907, 1203210, 6571677 ####[address] [address] MCV (RBC) [Entitic vol] 84.3 fL Normal 80.0-100.0 [facility] Comment on above: Performed By: #### 1 4521204, 6097298, 13063075, 05735448, 4506091, 49238427, 1208712, 9893688, 5080123, 6268216 ####[facility] [address] [place] [address] [place] Absolute 0.9 E9/L Normal 0.2-1.[address] [facility] Comment on above: Performed By: #### 1 8190700, 4561392, 36329169, 37761207, 3328519, 90950557, 2365350, 0103534, 8960206, 3887826 ####[address] [place] [address] Monocytes/100 WBC (Bld) 8.1 % Normal 4.0-14.0 [facility] Comment on above: Performed By: #### 1 9658005, 4237436, 44106876, 27020504, 6700263, 48338096, 8286223, 8374392, 8282923, 9552562 ####[address] [place] [address] Neutro Absolute 6.6 E9/L Normal 2.0-7.5 [facility] Comment on above: Performed By: #### 1 4552197, 8243806, 66342538, 39454177, 0137375, 63540162, 7983762, 7022502, 4102260, 2594073 ####[facility] [address] [place] [address] Neutro Auto 56.6 % Normal 36.0-75.0 [facility] Comment on above: Performed By: #### 1 9457711, 1001386, 54762252, 15262767, 9759770, 27062267, 9724994, 7112930, 1104258, 2765697 ####[facility] [address] [place] [address] Platelet 431.0 E9/L Normal 150.0-500.0 [facility] Comment on above: Performed By: #### 1 8814316, 1661263, 05214130, 00540326, 0500555, 50001405, 5671699, 7260269, 5072823, 2739374 ####[facility] [address] [place] [address] Platelet mean volume (Bld) [Entitic vol] 8.5 fL Normal 6.4-10.8 [facility] Comment on above: Performed By: #### 1 5951794, 2955906, 26716939, 22603410, 1767539, 62788945, 6349129, 6153486, 4267996, 5493955 ####[facility] [address] [place] [address] RBC 5.5 E12/L Normal 4.3-5.9 [facility] Comment on above: Performed By: #### 1 9664061, 4767419, 63034838, 49808586, 8388990, 07378379, 7497668, 3823744, 7359267, 8070746 ####[facility] [address] [place] [address] WBC 11.6 E9/L High 4.0-11.0 [facility] Comment on above: Performed By: #### 1 8049593, 5429580, 47242381, 19896850, 6844249, 02461028, 5038105, 8690370, 4341911, 1536147 ####[facility] [address] [place] [address] CHEMISTRYOrdered By: SYSTEM SYSTEM on 07-05-2023 Troponin 51.10 pg/mL Invalid Interpretation Code 10.10 - 27.10 pg/mL [facility] Comment on above: Result Comment: Crit ical Result I_TnIHS:51.1 Called to and read back by: DR. JUAN MAS at: 07/05/2023 21:51:38 by:[id number] Critical Result Verified by Previous Result Interpretive Data: T he 95% CI (Confidence Interval) PPV (Positive Predictive Value) for myocardial infarction in females is 38 pg/mL, in males 51 pg/mL. The results should be used in conjunction with clinical conditions of myocardial infarction. (Access High Sensitivity Troponin I Instructions For Use, [employer] ([facility]: [place]), December 2017) Troponin 51.70 pg/mL Invalid Interpretation Code 10.10 - 27.10 pg/mL [facility] Chem S Comment on above: Interpretive Data: T he 95% CI (Confidence Interval) PPV (Positive Predictive Value) for myocardial infarction in females is 38 pg/mL, in males 51 pg/mL. The results should be used in conjunction with clinical conditions of myocardial infarction. (Access High Sensitivity Troponin I Instructions For Use, [facility] ([facility]: [place]), December 2017) Result Comment: Crit ical Result [...] back by: JOHNNA PERKINS at: 07/05/2023 16:37:35 by:[email or web address] Interpretive Data: Nydia yousif 95% CI (Confidence Interval) PPV (Positive Predictive [...] 508 pg/mL High 5 - 80 pg/mL [facility] COAGULATIONOrdered By: Richar Kumar on 07-05-2023 aPTT Coag (PPP) [Time] 27.2 s Normal 25.1 - 36.5 second(s) [facility] Auto Coag Comment on above: Interpretive Data: [...] the same coagulation reagent and instrumentation as [facility]. Currently there are no coagulation studies available worldwide for children to 14 days, and no normal ranges. Heparin therapeutic range (represented by Anti-Factor Xa activity of 0.2 - 0.4 U/mL) corresponds to PTT of 56.6 - 109.0 sec. INR Coag (PPP) [Relative time] 1.01 {INR} Invalid Interpretation Code [facility] Auto Coag Comment on above: Interpretive Data: I NR results are specifically intended to assess patients stabilized on long-term Anticoagulation therapy suggested INR s Less Intensive Anticoagulation 2.0 3.0 Conventional Range 3.0 4.5 PT Coag (PPP) [Time] 11.2 s Normal 9.4 - 1 2.5 second(s) [facility] Auto Coag Comment on above: Interpretive Data: [...] the same coagulation reagent and instrumentation as [facility]. Currently there are no coagulation studies available worldwide for children to 14 days, and no normal ranges. Consent for Treatment06-15 Consent for Treatment [id number] .[id number] Normal [facility] Digoxinon 07-05-2023 Digoxin Lvl <0.2 Low 0.5-1.9 [facility] Comment on above: Performed By: #### 1 6541243, 3387283, 49723996, 53387049, 8768023, 69133901, 0078093, 1918703, 7313231, 9736067 ####[facility] [address] [place] [address] ED Note-Physicianon 07-05-19 24 ED Note-Physician Basic [...] she was just released from [facility] 36 hours ago. She states [...] acute int (more content not included)... Normal [facility] Comment on above: Result Comment: Elec [...] Normal 80.0 - 100.0 fL Remisol Heme [place] Absolute 0.9 E9/L Normal 0.2 - 1.0 [...] 07-05-2023 Albumin [Mass/Vol] 4.3 g/dL Normal 3.3-5.0 [facility] Comment on above: Performed By: #### 1 1420316, 0074507, 12013185, 53585761, 3251544, 17444978, 8619737, 1148703, 6410614, 5682183 ####[facility] [address] [place] [address] Albumin/Globulin [Mass ratio] 1.4 {ratio} Normal 1.1-2.2 [facility] Comment on above: Performed By: #### 1 2679338, 1059935, 98406952, 29605147, 1614633, 46170869, 7816406, 2337359, 2975603, 1877965 ####[address] [place] [address] Alk Phos 77 Int._Unit/L Normal 21-98 [facility] Comment on above: Performed By: #### 1 9052548, 8428845, 91283924, 03959784, 3285405, 77820709, 5617245, 4044238, 2251933, 8347750 ####[address] [address] ALT 20 Int._Unit/L Normal 6-46 [facility] Comment on above: Performed By: #### 1 6966093, 6833931, 57372351, 17176910, 3222529, 20337340, 2483450, 8909387, 7465582, 8446400 ####[address] [address] AST 23 Int._Unit/L Normal 5-43 [facility] Comment on above: Performed By: #### 1 2885251, 6413815, 53248844, 85975755, 7290225, 34627032, 7625525, 6153925, 3274848, 4001035 ####[facility] [address] [place] [address] Bili Direct 0.1 mg/dL Normal 0.0-0.4 [facility] Comment on above: Performed By: #### 1 1167888, 2647282, 66216023, 08784497, 1575958, 88201282, 2696656, 0760827, 8762764, 1050807 ####[address] [place] [address] Bili Indirect 0.5 mg/dL Normal 0.1-0.[address] [facility] Comment on above: Performed By: #### 1 4589179, 2176463, 76258385, 29911502, 7610529, 97954402, 8378518, 0516852, 5015606, 7215053 ####[facility] [address] [place] [address] Bili Total 0.6 mg/dL Normal 0.0-1.1 [facility] Comment on above: Performed By: #### 1 0348385, 2243422, 32915033, 42551102, 7916539, 34374223, 2807914, 6724510, 7342057, 8480039 ####[address] [place] [address] Globulin (S) [Mass/Vol] 3.0 g/dL Normal 1.4-4.0 [facility] Comment on above: Performed By: #### 1 [id number], 3306043, 37219563, 77815014, 1584376, 57593163, 8864740, 0858185, 3545313, 0057085 ####[facility] [address] [place] [address] Protein [Mass/Vol] 7.3 g/dL Normal 6.0-7.8 [facility] Comment on above: Performed By: #### 1 [id number], 3211593, 01810387, 49521749, 2995314, 45654726, 2620901, 8195360, 1792958, 8071299 ####[facility] [address] [place] [address] Lipase Levelon 07-05-2023 Lipase Lvl 22 unit/L Normal 13-58 [facility] Comment on above: Performed By: #### 1 [id number], 9433260, 16804781, 38926870, 3110170, 52842942, 6079474, 2754736, 4704269, 0201896 ####[facility] [address] [place] [address] Magnesiumon 02-22-2024 Magnesium [Mass/Vol] 2.3 mg/dL Normal 1.3-2.4 [facility] Comment on above: Performed By: #### 1 [id number], 4542603, 87498751, 55795415, 7221539, 64296539, 7839054, 1185118, 8306090, 7775499 ####[facility] [address] [place] [address] Monitor Recordon 07-05-2023 Monitor Record [id number]# 1.00TIFF Normal [facility] Monitor Record [id number]# 1.00TIFF Normal [facility] Monitor Record [id number]# 1.00TIFF Normal [facility] PT & PTTon 07-05-2023 aPTT Coag (PPP) [Time] 27.2 second(s) Normal 25.1-36.5 [facility] Comment on above: Result Comment: Para [...] the same coagulation reagent and instrumentation as [facility]. Currently there are no coagulation studies available worldwide for children to 14 days, and no normal ranges. Heparin therapeutic range (represented by Anti-Factor Xa activity of 0.2 - 0.4 U/mL) corresponds to PTT of 56.6 - 109.0 sec. Performed By: #### 1 [id number], 7987276, 21846994, 58072868, 0653697, 71741080, 2550015, 9240159, 9467590, 2868965 ####[facility] [address] [place] [address] INR Coag (PPP) [Relative time] 1.01 {INR} Invalid Interpretation Code [facility] Comment on above: Result Comment: INR results are specifically intended to assess patients stabilized on long-term Anticoagulation therapy suggested INR?s ?Less Intensive Anticoagulation? 2.0 ? 3.0 Conventional Range 3.0 ? 4.5 Performed By: #### 1 [id number], 8153180, 57868178, 84347133, 0772591, 81496574, 3565674, 4153014, 4256065, 1620603 ####[facility] [address] [place] [address] PT Coag (PPP) [Time] 11.2 second(s) Normal 9.4-12.5 [facility] Comment on above: Result Comment: 15 [...] the same coagulation reagent and instrumentation as [facility]. Currently there are no coagulation studies available worldwide for children to 14 days, and no normal ranges. Performed By: #### 1 4433097, 1229521, 20354777, 46967187, 5514594, 54497250, 0455547, 3951141, 9715832, 5713603 ####[facility] [address] [place] [address] Pre-Arrival Noteon Pre-Arrival Note Pre-Arrival Summary Name: , [facility] Current Date: 07/05/2023 15:02:00 EST Gender: Female Date of : Age: 63 Pre-Arrival Type: EMS ETA: 07/05/2023 15:21:00 EST Primary Care Physician: Presenting Problem: HR 40s, CP, SOB, dizziness, abd. pain, nausea Pre-Arrival User: Oxana Pace RN Referring Source: Location: CT Completion Date/Time: 07/05/2023 14:51:00 [facility] Emergency Department Pre-Hospital Report Form Vital Signs: Pre-Hospital Report: Treatment in Route: Response to Treatment: Misc. Issues: Normal [facility] Troponin 0 Hr.on 07-05-2023 Troponin 49.20 pg/mL Abnormal 10.10-27.10 [facility] Comment on above: Result Comment: Crit ical Result Verified by Repeat Analysis Critical Result I_TnIHS:49.2 Called to and read back by: JOHNNA PERKINS at: 07/05/2023 16:37:35 by:APURVA The 95% CI (Confidence Interval) PPV (Positive Predictive Value) for myocardial infarction in females is 38 pg/mL, in males 51 pg/mL. The results should be used in conjunction with clinical conditions of myocardial infarction. (Access High Sensitivity Troponin I Instructions For Use, [place]ana [place], December 2017) Performed By: #### 1 [id number], 0690741, 54127741, 46692834, 4409787, 21893386, 2678409, 0682749, 9210951, 6778043 ####[facility] [address] [place] [address] Troponin 3 Hr.on 07-05-2023 Troponin 51.70 pg/mL Abnormal 10.10-27.10 [facility] Comment on above: Result Comment: The 95% CI (Confidence Interval) PPV (Positive Predictive Value) for myocardial infarction in females is 38 pg/mL, in males 51 pg/mL. The results should be used in conjunction with clinical conditions of myocardial infarction. (Access High Sensitivity Troponin I Instructions For Use, [employer] ([employer]: [place]), December 2017) Critical Result Verified by Previous Result Results Called To Johnna Perkins (ER) By And Read Back For Confirmation On 07/05/2023 19:18:03 EST. Performed By: #### 1 [id number] ####[facility] [address] [place] [address] Troponin 6 Hr.on 07-05-2023 Troponin 51.10 pg/mL Abnormal 10.10-27.10 [facility] Comment on above: Result Comment: Crit ical Result I_TnIHS:51.1 Called to and read back by: DR. JUAN MAS at: 07/05/2023 21:51:38 by:[id number] Critical Result Verified by Previous Result The 95% CI (Confidence Interval) PPV (Positive Predictive Value) for myocardial infarction in females is 38 pg/mL, in males 51 pg/mL. The results should be used in conjunction with clinical conditions of myocardial infarction. ([employer] High Sensitivity Troponin I Instructions For Use, [employer] ([employer]: [place]), December 2017) Performed By: #### 1 [id number] ####[facility] [address] [place] [address] XR Chest Single Viewon 07-05 XR Chest [...] mGy = na DAP = na Normal [facility] eGFRon 07-05-2023 eGFR 39 mL/min/1.73 m2 Low >=59 [facility] Comment on above: Order Comment: Order added by Discern Expert. Performed By: #### 1 [id number], 9088615, 54809199, 34684801, 1163630, 22651954, 0048080, 2472769, 6172111, 3760834 ####[facility] [address] [place] [address] 36on 07-03-2023 36 Unable to reach pt . Phone not in service [facility] 36 Pts phone number not in service. Spoke to pts friend Arvind and requested he have pt call us, he agrees. [facility] Documentationon 07-03-2023 Documentation [id number] Vivian Vann 1960 F Date Provider Department Center 07/03/2023 [facility] No family history on file Reason for Visit and Comments: HF inpatient satisfaction robyn sent. [Other] [facility] 30on 07-02-2023 30 The patient is Moderately [...] and behaviors that affect risk of falls [place] fall precautions as indicated by assessment Educate [...] overall improvement and discharge Normal [facility] 30 The patient is Moderately Stable - [...] and behaviors that affect risk of falls [place] fall precautions as indicated by assessment Educate [...] overall improvement and discharge Normal [facility] BASIC METABOLIC PANELon 06-14 Anion gap [Moles/Vol] 11 mmol/L Normal 7-20 [facility] Comment on above: Performed By: #### L [id number] #### [facility] HOSPITAL LAB (BEAKER) [address] [place] [address] Calcium [Mass/Vol] 9.0 mg/dL Normal 8.6-10.3 [facility] Comment on above: Performed By: #### L [id number] #### [facility] HOSPITAL LAB (BEAKER) [address] [place] [address] Chloride [Moles/Vol] 91 mmol/L Low 98-[address] [facility] Comment on above: Performed By: #### L [id number] #### [facility] HOSPITAL LAB (BEAKER) [address] [place] [address] CO2 [Moles/Vol] 37 mmol/L High 21-31 [facility] Comment on above: Performed By: #### L [id number] #### [facility] HOSPITAL LAB (BEAKER) [address] [place] [address] Creatinine [Mass/Vol] 0.89 mg/dL Normal 0.60-1.20 [facility] Comment on above: Performed By: #### L [id number] #### [facility] HOSPITAL LAB (BEAKER) [address] [place] [address] GLOMERULAR FILTRATION RATE ML/MIN/1.73 SQ M.PREDICTED 73.3 mL/min/1.73m*2 Normal >60.0 [facility] Comment on above: Result Comment: The [facility]???s estimated glomerular filtration rate (eGFR) will no [...] individuals. Performed By: #### L [id number] #### [facility] [[email or web address] LAB ([facility]) [address] [place] [address] Glucose [Mass/Vol] 123 mg/dL High 70-100 [facility] Comment on above: Performed By: #### L [id number] #### [facility] [[email or web address] LAB ([facility]) [address] [place] [address] Potassium [Moles/Vol] 3.7 mmol/L Normal 3.5-5.1 [facility] Comment on above: Performed By: #### L [id number] #### [facility] [[email or web address] LAB ([facility]) [address] [place] [address] Sodium [Moles/Vol] 135 mmol/L Low 136-145 [facility] Comment on above: Performed By: #### L [id number] #### [facility] [[email or web address] LAB ([facility]) [address] [place] [address] Urea nitrogen [Mass/Vol] 29 mg/dL High 7-25 [facility] Comment on above: Performed By: #### L [id number] #### [facility] [[email or web address] LAB ([facility]) [address] [place] [address] UREA NITROGEN/CREATININE (MASS RATIO) IN SER/PLAS 32.6 Normal [facility] Comment on above: Performed By: #### L [id number] #### [facility] [[email or web address] LAB ([facility]) [address] [place] [address] CBCon 07-02-2023 Erythrocyte distribution width (RBC) [Ratio] 15.8 % High 11.5-15.0 [facility] Comment on above: Performed By: #### L [id number] ####[facility] [[email or web address] LAB ([facility])[address] [place] [address] ERYTHROCYTE MEAN CORPUSCULAR HEMOGLOBIN CONCENTRATION (G/DL) BY AUTOMATED 31.8 g/dL Low 32.0-35.0 [facility] Comment on above: Performed By: #### L [id number] ####[facility] [[email or web address] LAB ([facility])[address] [place] [address] Hematocrit (Bld) [Volume fraction] 44.0 % Normal 36.0-48.0 [facility] Comment on above: Performed By: #### L [id number] ####[facility] [[email or web address] LAB ([facility])[address] [place] [address] Hemoglobin (Bld) [Mass/Vol] 14.0 g/dL Normal 12.0-15.0 [facility] Comment on above: Performed By: #### L [id number] ####[facility] [[email or web address] LAB ([facility])[address] [place] [address] MCH (RBC) [Entitic mass] 27.9 pg Normal 27.0-33.0 [facility] Comment on above: Performed By: #### L [id number] ####[facility] [[email or web address] LAB ([facility])[address] [place] [address] MCV (RBC) [Entitic vol] 87.8 fL Normal 82.0-98.0 [facility] Comment on above: Performed By: #### L [id number] ####[facility] [[email or web address] LAB ([facility])[address] [place] [address] PLATELETS (10*3/UL) IN BLOOD AUTOMATED COUNT 285 10*3/uL Normal 150-400 [facility] Comment on above: Performed By: #### L [id number] ####[facility] [[email or web address] LAB ([facility])[address] [place] [address] RBC (Bld) [#/Vol] 5.01 10*6/uL High 3.80-5.00 [facility] Comment on above: Performed By: #### L [id number] ####[facility] [[email or web address] LAB ([place]RIY)[address] [place] [address] WBC (Bld) [#/Vol] 8.89 10*3/uL Normal 4.00-10.60 [facility] Comment on above: Performed By: #### L [id number] ####[facility] [[email or web address] [place] [address] DSon 07-02-2023 DS Admit Date 06/29/2023 Discharge Date 07/02/2023 Discharge Diagnosis NSTEMI Acute on chronic HFpEF NYHA class 2 CAD DMII noninsulin dependent Chronic pain Anxiety GERD Tobacco abuse [place]charge [place] [facility] [place] Discharge Medications Your medication list [...] Medications These medications were sent to [facility] - [place], [place] - [address] [place] [address] [address] [facility] [place] [address], [facility] [address] furosemide 40 mg tablet spironolactone 25 mg tablet Activity Normal activity as tolerated Diet Continue on the same type of diet and foods as you were eating before your admission. Drink plenty of water. Allergies Hay fever and allergy relief and House dust Hospital Course History of Present Illness Vivian Vann is an 63 y.o. female who came from [facility] as direct asmission for NSTEMI. Patient presented 06/28/23 to [facility] for c/o chest pain and lower back pain. Patient troponin level found to be 557 and EKG showed new ischemia and inverted T-waves, NSTEMI. She was given nitroglycerin and started on heparin drip. Patient is 1 year s/p stent placement at [facility] on plavix and aspirin. Dr. Chapa with cardiology agreed to patient transfer here to [facility] with hospital medicine admitting and cardiology [...] Low back pending. Laboratory workup here at [facility] shows CBC unremarkable w/ exception of [...] (more content not included)... Normal [facility] POCT GLUCOSE METER UNSOLICIT ED RESULTSon 07-02-2023 Glucose [Mass/Vol] 117 mg/dL High 70-105 [facility] Comment on above: Order Comment: Waive d Testing in the ED is performed under the ED CLIA certificate #[id number]. Result Comment: [email or web address] Performed By: #### L [id number] #### [facility] [[email or web address] LAB (BEAKER) [address] [place] [address] Glucose [Mass/Vol] 110 mg/dL High 70-105 [facility] Comment on above: Order Comment: Waive d Testing in the ED is performed under the ED CLIA certificate #[id number]. Result Comment: [email or web address] Performed By: #### L [id number] ####[facility] [[email or web address] LAB (BEAKER)[address] [place] [address] 30on 07-01-2023 30 The patient is Moderately [...] and behaviors that affect risk of falls [place] fall precautions as indicated by assessment Educate [...] overall improvement and discharge Normal [facility] BASIC METABOLIC PANELon - Anion gap [Moles/Vol] 10 mmol/L Normal 7-20 [facility] Comment on above: Performed By: #### L [id number] #### [facility] [[email or web address] LAB (BEAKER) [address] [place] [address] Calcium [Mass/Vol] 8.3 mg/dL Low 8.6-10.3 [facility] Comment on above: Performed By: #### L [id number] #### [facility] [[email or web address] LAB (BEAKER) [address] [place] [address] Chloride [Moles/Vol] 98 mmol/L Normal 98-[address] [facility] Comment on above: Performed By: #### L [id number] #### [facility] [[email or web address] [address] [place] [address] CO2 [Moles/Vol] 35 mmol/L High 21-31 [facility] Comment on above: Performed By: #### L [id number] #### [facility] [[email or web address] ([facility] [address] [place] [address] Creatinine [Mass/Vol] 1.08 mg/dL Normal 0.60-1.20 [facility] Comment on above: Performed By: #### L [id number] #### [facility] [[email or web address] LAB ([facility]) [address] [place] [address] GLOMERULAR FILTRATION RATE ML/MIN/1.73 SQ M.PREDICTED 58.1 mL/min/1.73m*2 Low >60.0 [facility] Comment on above: Result Comment: The [facility]???s estimated glomerular filtration rate (eGFR) will no [...] individuals. Performed By: #### L [id number] #### [facility] [[email or web address] ([facility] [address] [place] [address] Glucose [Mass/Vol] 116 mg/dL High 70-100 [facility] Comment on above: Performed By: #### L [id number] #### [facility] [[email or web address] LAB ([facility]) [address] [place] [address] Potassium [Moles/Vol] 3.7 mmol/L Normal 3.5-5.1 [facility] Comment on above: Performed By: #### L [id number] #### [facility] [[email or web address] LAB ([facility]) [address] [place] [address] Sodium [Moles/Vol] 139 mmol/L Normal 136-145 [facility] Comment on above: Performed By: #### L [id number] #### [facility] [[email or web address] LAB ([facility]) [address] [place] [address] Urea nitrogen [Mass/Vol] 27 mg/dL High 7-25 [facility] Comment on above: Performed By: #### L [id number] #### [facility] [[email or web address] LAB ([facility]) [address] [place] [address] UREA NITROGEN/CREATININE (MASS RATIO) IN SER/PLAS 25.0 Normal [facility] Comment on above: Performed By: #### L [id number] #### [facility] [[email or web address] LAB ([facility]) [address] [place] [address] POCT GLUCOSE METER UNSOLICIT ED RESULTSon 07-01-2023 Glucose [Mass/Vol] 132 mg/dL High 70-105 [facility] Comment on above: Order Comment: Waive d Testing in the ED is performed under the ED CLIA certificate #[id number]. Result Comment: [email or web address] Performed By: #### L [id number] ####[facility] [[email or web address] LAB ([facility])[address] [place] [address] Glucose [Mass/Vol] 106 mg/dL High 70-105 [facility] Comment on above: Order Comment: Waive d Testing in the ED is performed under the ED CLIA certificate #[id number]. Result Comment: mick [email or web address] Performed By: #### L [id number] ####[facility] [[email or web address] [place] [address] Glucose [Mass/Vol] 121 mg/dL High 70-105 [facility] Comment on above: Order Comment: Waive d Testing in the ED is performed under the ED CLIA certificate #[id number]. Result Comment: wwar rad Performed By: #### L [id number] ####[facility] [[email or web address] LAB ([facility])[address] [place] [address] Glucose [Mass/Vol] 105 mg/dL Normal 70-105 [facility] Comment on above: Order Comment: Waive d Testing in the ED is performed under the ED CLIA certificate #[id number]. Result Comment: wwar rad Performed By: #### L [id number] #### [facility] [[email or web address] LAB ([facility]) [address] [place] [address] 30on 06-30-2023 30 The patient is Moderately [...] or improved Outcome: Progressing Normal [facility] ANTI-XA (HEPARIN LEVEL)on HEPARIN UNFRACTIONATED (U/ML) IN PPP BY CHROMOGENIC METHOD <0.10 Invalid Interpretation Code 0.3-0.7 [facility] Comment on above: Order Comment: Check anti-Xa level every 6 hours while on heparin infusion, or per protocol. Result Comment: Clare roxaban and Apixaban will interfere with the anti Xa assay used to monitor UFH and LMWH. Performed By: #### L [id number] #### [facility] [[email or web address] LAB ([facility]) [address] [place] [address] CBCon 06-30-2023 Erythrocyte distribution width (RBC) [Ratio] 15.3 % High 11.5-15.0 [facility] Comment on above: Performed By: #### L [id number] ####[facility] [[email or web address]] LAB (BEAKER)[address] [place] [address] ERYTHROCYTE MEAN CORPUSCULAR HEMOGLOBIN CONCENTRATION (G/DL) BY AUTOMATED 32.2 g/dL Normal 32.0-35.0 [facility] Comment on above: Performed By: #### L [id number] ####[facility] [[email or web address] ([facility] [place] [address] Hematocrit (Bld) [Volume fraction] 35.7 % Low 36.0-48.0 [facility] Comment on above: Performed By: #### L [id number] ####[facility] [[email or web address] ([facility] [place] [address] Hemoglobin (Bld) [Mass/Vol] 11.5 g/dL Low 12.0-15.0 [facility] Comment on above: Performed By: #### L [id number] ####[facility] [[email or web address] LAB (BEAKER)[address] [place] [address] MCH (RBC) [Entitic mass] 28.1 pg Normal 27.0-33.0 [facility] Comment on above: Performed By: #### L [id number] ####[facility] [[email or web address] LAB (BEAKER)[address] [place] [address] MCV (RBC) [Entitic vol] 87.3 fL Normal 82.0-98.0 [facility] Comment on above: Performed By: #### L [id number] ####[facility] [[email or web address] LAB (BEAKER)[address] [place] [address] PLATELETS (10*3/UL) IN BLOOD AUTOMATED COUNT 219 10*3/uL Normal 150-400 [facility] Comment on above: Performed By: #### L [id number] ####[facility] [[email or web address] LAB (BEAKER)[address] [place] [address] RBC (Bld) [#/Vol] 4.09 10*6/uL Normal 3.80-5.00 [facility] Comment on above: Performed By: #### L [id number] ####[facility] [[email or web address] LAB (BEAKER)[address] [place] [address] WBC (Bld) [#/Vol] 10.22 10*3/uL Normal 4.00-10.[address] [facility] Comment on above: Performed By: #### L [id number] ####[facility] [[email or web address] LAB (BEAKER)[address] [place] [address] CONSULTon 06-30-2023 CONSULT Clinical Nutrition Assessment Name: [...] with questions and contact the dietitian via [employer] chat 8A-4P Sunday-Sunday. Or call the dietitian's office at extension [phone]. For weekends/holidays, the dietitian's can be reached by paging [phone] from 9A-3P. Unable to be reached via [employer] chat on Sunday & .) Normal [facility] HEMOGLOBIN A1Con 06-30-2023 Glucose [Mass/Vol] 143 mg/dL Normal [facility] Comment on above: Performed By: #### L [id number] ####[facility] [[email or web address] LAB (BEAKER)[address] [place] [address] HbA1c (Bld) [Mass fraction] 6.6 % High 4.0-6.0 [facility] Comment on above: Performed By: #### L [id number] ####[facility] [[email or web address] LAB (BEAKER)[address] [place] [address] LACTIC ACID WITH 4 HOUR REFL EXon 06-30-2023 LACTATE (MMOL/L) IN SER/PLAS 1.9 mmol/L Normal 0.5-2.2 [facility] Comment on above: Performed By: #### L [id number] #### [facility] [[email or web address] LAB (BEAKER) [address] [place] [address] POCT GLUCOSE METER UNSOLICIT ED RESULTSon 06-30-2023 Glucose [Mass/Vol] 156 mg/dL High 70-105 [facility] Comment on above: Order Comment: Waive d Testing in the ED is performed under the ED CLIA certificate #[id number]. Result Comment: magda weir Performed By: #### L [id number] ####[facility] [[email or web address]] LAB (BEAKER)[address] [place] [address] Glucose [Mass/Vol] 149 mg/dL High 70-105 [facility] Comment on above: Order Comment: Waive d Testing in the ED is performed under the ED CLIA certificate #[id number]. Result Comment: [email or web address] Performed By: #### L [id number] #### [facility] [[email or web address] LAB ([facility]) [address] [place] [address] Glucose [Mass/Vol] 181 mg/dL High 70-105 [facility] Comment on above: Order Comment: Waive d Testing in the ED is performed under the ED CLIA certificate #[id number]. Result Comment: [email or web address] Performed By: #### L [id number] #### [facility] [[email or web address] [address] [place] [address] 30on 06-29-2023 30 The patient is Moderately [...] or improved Outcome: Progressing Normal [facility] 30 The patient is Moderately Stable - Low risk of patient condition declining or worsening The patient's goals for the shift include no chest pain The clinical goals for the shift include vss Over the shift, the patient did not make progress toward the following goals. Barriers to progression include . Recommendations to address these barriers include . Normal [facility] APTTon 06-29-2023 ACTIVATED PARTIAL THROMBOPLASTIN TIME IN PPP BY COAGULATION ASSAY 67.3 Seconds High 25.0-35.0 [facility] Comment on above: Result Comment: Clin ical significance of the APTT is questionable in the presence of heparin. Performed By: #### L [id number] #### [facility] [[email or web address] [address] [place] [address] B-TYPE NATRIURETIC PEPTIDEon 06-29-2023 Natriuretic peptide B (Bld) [Mass/Vol] 1683 pg/mL High 0-100 [facility] Comment on above: Performed By: #### L [id number] #### [facility] [[email or web address] LAB ([facility]) [address] [place] [address] BASIC METABOLIC PANELon 06-14 Anion gap [Moles/Vol] 14 mmol/L Normal 7-20 [facility] Comment on above: Performed By: #### L [id number] #### [facility] [[email or web address] LAB ([facility]) [address] [place] [address] Calcium [Mass/Vol] 8.2 mg/dL Low 8.6-10.3 [facility] Comment on above: Performed By: #### L [id number] #### [facility] [[email or web address] LAB ([facility]) [address] [place] [address] Chloride [Moles/Vol] 102 mmol/L Normal 98-[address] [facility] Comment on above: Performed By: #### L [id number] #### [facility] [[email or web address] LAB ([facility]) [address] [place] [address] CO2 [Moles/Vol] 25 mmol/L Normal 21-31 [facility] Comment on above: Performed By: #### L [id number] #### [facility] [[email or web address] LAB ([facility]) [address] [place] [address] Creatinine [Mass/Vol] 1.04 mg/dL Normal 0.60-1.20 [facility] Comment on above: Performed By: #### L [id number] #### [facility] [[email or web address] LAB ([facility]) [address] [place] [address] GLOMERULAR FILTRATION RATE ML/MIN/1.73 SQ M.PREDICTED 60.8 mL/min/1.73m*2 Normal >60.0 [facility] Comment on above: Result Comment: The [facility]???s estimated glomerular filtration rate (eGFR) will no [...] individuals. Performed By: #### L [id number] #### [facility] [[email or web address] LAB ([facility]) [address] [place] [address] Glucose [Mass/Vol] 268 mg/dL High 70-100 [facility] Comment on above: Performed By: #### L [id number] #### [facility] [[email or web address] LAB ([facility]) [address] [place] [address] Potassium [Moles/Vol] 4.1 mmol/L Normal 3.5-5.1 [facility] Comment on above: Performed By: #### L [id number] #### [facility] [[email or web address] LAB ([facility]) [address] [place] [address] Sodium [Moles/Vol] 137 mmol/L Normal 136-145 [facility] Comment on above: Performed By: #### L [id number] #### [facility] [[email or web address] LAB ([facility]) [address] [place] [address] Urea nitrogen [Mass/Vol] 14 mg/dL Normal 7-25 [facility] Comment on above: Performed By: #### L [id number] #### [facility] [[email or web address] LAB ([facility]) [address] [place] [address] UREA NITROGEN/CREATININE (MASS RATIO) IN SER/PLAS 13.5 Normal [facility] Comment on above: Performed By: #### L [id number] #### [facility] [[email or web address] LAB ([facility]) [address] [place] [address] CBCon 06-29-2023 Erythrocyte distribution width (RBC) [Ratio] 15.3 % High 11.5-15.0 [facility] Comment on above: Performed By: #### L [id number] #### [facility] [[email or web address] LAB ([facility]) [address] [place] [address] ERYTHROCYTE MEAN CORPUSCULAR HEMOGLOBIN CONCENTRATION (G/DL) BY AUTOMATED 31.8 g/dL Low 32.0-35.0 [facility] Comment on above: Performed By: #### L [id number] #### [facility] [[email or web address] [address] [place] [address] Hematocrit (Bld) [Volume fraction] 39.3 % Normal 36.0-48.0 [facility] Comment on above: Performed By: #### L [id number] #### [facility] [[email or web address] LAB ([facility] [address] [place] [address] Hemoglobin (Bld) [Mass/Vol] 12.5 g/dL Normal 12.0-15.0 [facility] Comment on above: Performed By: #### L [id number] #### [facility] [[email or web address] LAB ([facility]) [address] [place] [address] MCH (RBC) [Entitic mass] 28.4 pg Normal 27.0-33.0 [facility] Comment on above: Performed By: #### L [id number] #### [facility] [[email or web address] LAB ([facility] [address] [place] [address] MCV (RBC) [Entitic vol] 89.3 fL Normal 82.0-98.0 [facility] Comment on above: Performed By: #### L [id number] #### [facility] [[email or web address] LAB ([facility]) [address] [place] [address] PLATELETS (10*3/UL) IN BLOOD AUTOMATED COUNT 218 10*3/uL Normal 150-400 [facility] Comment on above: Performed By: #### L [id number] #### [facility] [[email or web address] LAB ([facility] [address] [place] [address] RBC (Bld) [#/Vol] 4.40 10*6/uL Normal 3.80-5.00 [facility] Comment on above: Performed By: #### L [id number] #### [facility] [[email or web address] LAB ([facility] [address] [place] [address] WBC (Bld) [#/Vol] 9.91 10*3/uL Normal 4.00-10.60 [facility] Comment on above: Performed By: #### L [id number] #### [facility] [[email or web address] LAB ([facility] [address] [place] [address] COMPREHENSIVE METABOLIC PANE Pollo 06-29-2023 Albumin [Mass/Vol] 3.8 g/dL Normal 3.5-5.7 [facility] Comment on above: Performed By: #### L [id number] ####[facility] [[email or web address] LAB ([facility] [place] [address] ALP [Catalytic activity/Vol] 77 U/L Normal 34-104 [facility] Comment on above: Performed By: #### L [id number] ####[facility] [[email or web address] LAB ([facility] [place] [address] ALT [Catalytic activity/Vol] 23 U/L Normal 7-52 [facility] Comment on above: Performed By: #### L [id number] ####[facility] [[email or web address] LAB ([facility] [place] [address] Anion gap [Moles/Vol] 10 mmol/L Normal 7-20 [facility] Comment on above: Performed By: #### L [id number] ####[facility] [[email or web address] LAB ([facility] [place] [address] AST [Catalytic activity/Vol] 23 U/L Normal 13-39 [facility] Comment on above: Performed By: #### L [id number] ####[facility] [[email or web address] LAB ([facility] [place] [address] Bilirubin [Mass/Vol] 0.4 mg/dL Normal 0.3-1.[address] [facility] Comment on above: Performed By: #### L [id number] ####[facility] [[email or web address] LAB ([facility] [place] [address] Calcium [Mass/Vol] 8.6 mg/dL Normal 8.6-10.3 [facility] Comment on above: Performed By: #### L [id number] ####[facility] [[email or web address]] LAB (BEAKER)[address] [place] [address] Chloride [Moles/Vol] 107 mmol/L Normal 98-[address] [facility] Comment on above: Performed By: #### L [id number] ####[facility] [[email or web address] LAB ([facility] [place] [address] CO2 [Moles/Vol] 27 mmol/L Normal 21-31 [facility] Comment on above: Performed By: #### L [id number] ####[facility] [[email or web address] LAB ([facility])[address] [place] [address] Creatinine [Mass/Vol] 1.01 mg/dL Normal 0.60-1.20 [facility] Comment on above: Performed By: #### L [id number] ####[facility] [[email or web address] LAB ([facility])[address] [place] [address] GLOMERULAR FILTRATION RATE ML/MIN/1.73 SQ M.PREDICTED 62.9 mL/min/1.73m*2 Normal >60.0 [facility] Comment on above: Result Comment: The [facility]???s estimated glomerular filtration rate (eGFR) will no [...] of individuals. Performed By: #### L [id number] ####[facility] [[email or web address] LAB ([facility] [place] [address] Glucose [Mass/Vol] 148 mg/dL High 70-100 [facility] Comment on above: Performed By: #### L [id number] ####[facility] [[email or web address]] LAB (BEAKER)[address] [place] [address] Potassium [Moles/Vol] 4.2 mmol/L Normal 3.5-5.1 [facility] Comment on above: Performed By: #### L [id number] ####[facility] [[email or web address] LAB ([facility])[address] [place] [address] Protein [Mass/Vol] 6.3 g/dL Normal 6.0-8.3 [facility] Comment on above: Performed By: #### L [id number] ####[facility] [[email or web address] LAB ([facility])[address] [place] [address] Sodium [Moles/Vol] 140 mmol/L Normal 136-145 [facility] Comment on above: Performed By: #### L [id number] ####[facility] [[email or web address] LAB ([facility])[address] [place] [address] Urea nitrogen [Mass/Vol] 10 mg/dL Normal 7-25 [facility] Comment on above: Performed By: #### L [id number] ####[facility] [[email or web address] LAB ([facility])[address] [place] [address] UREA NITROGEN/CREATININE (MASS RATIO) IN SER/PLAS 9.9 Normal [facility] Comment on above: Performed By: #### L [id number] ####[facility] [[email or web address] LAB ([facility])[address] [place] [address] CONSULTon 06-29-2023 CONSULT - Attestation signed by Vinay Chapa MD at 06/30/2023 10:52 AM By using [...] comes as a transfer from [facility] due to suspected NSTEMI. Patient was [...] were elevated at 557 at [facility] and recheck here shows 0.07. Patient [...] Value Ventricular Rate 61 Atrial Rate 61 MD Interval 150 (more content not included)... Normal [facility] HPon 06-29-2023 HP Interval Pre-Procedural H&P Reason for Consult: NSTEMI HPI: Vivian Vann is a 63 y.o. female with PMH of CAD s/p PCI to LAD (October 2021), HTN, HLD, COPD, tobacco use comes as a transfer from [facility] due to suspected NSTEMI. Patient was [...] were elevated at 557 at [facility] and recheck here shows 0.07. Patient [...] Value Ventricular Rate 61 Atrial Rate 61 MD Interval 150 QRS DURATION 88 QT Interval 476 QTC CALCULATION(BAZETT) 479 P [place] 68 R-[place] 25 T Wave [place] 128 Impression Normal sinus rhythm Right atrial [...] (more content not included)... Normal [facility] LACTIC ACID WITH 4 HOUR REFL EXon 06-29-2023 LACTATE (MMOL/L) IN SER/PLAS 3.6 mmol/L Critically high 0.5-2.2 [facility] Comment on above: Result Comment: M-MD EVIOUS CRITICAL RESULT Previous result verified on 06/29/2023 1809 on specimen/case [id number] called with component Lactate blood venous for procedure Lactic acid with 4 hour reflex with value 2.7 mmol/L. Performed By: #### L [id number] #### [facility] [[email or web address]] LAB (BEAKER) [address] [place] [address] LACTATE (MMOL/L) IN SER/PLAS 2.7 mmol/L Critically high 0.5-2.2 [facility] Comment on above: Performed By: #### L [id number] #### [facility] [[email or web address]] LAB (BEAKER) [address] [place] [address] LACTATE (MMOL/L) IN SER/PLAS 2.5 mmol/L High 0.5-2.2 [facility] Comment on above: Performed By: #### L [id number] ####[facility] [[email or web address] LAB ([facility])[address] [place] [address] MAGNESIUMon 06-29-2023 Magnesium [Mass/Vol] 2.1 mg/dL Normal 1.9-2.[address] [facility] Comment on above: Performed By: #### L [id number] ####[facility] [[email or web address] LAB ([facility])[address] [place] [address] Magnesium [Mass/Vol] 2.2 mg/dL Normal 1.9-2.[address] [facility] Comment on above: Performed By: #### L [id number] #### [facility] [[email or web address] LAB ([facility]) [address] [place] [address] Magnesium [Mass/Vol] 1.7 mg/dL Low 1.9-2.[address] [facility] Comment on above: Performed By: #### L [id number] #### [facility] [[email or web address] LAB ([facility]) [address] [place] [address] NURSNOTEon 06-29-2023 NURSNOTE Notified [place] [facility] Hospitalist critical lactate 2.7 no orders received said she would recheck lactate in 4 hrs Normal [facility] PHOSPHORUSon 06-29-2023 Magnesium [Mass/Vol] 3.5 mg/dL Normal 2.5-5.[address] [facility] Comment on above: Performed By: #### L [id number] ####[facility] [[email or web address] LAB ([facility])[address] [place] [address] PROTIME-INRon 06-29-2023 INR IN PPP BY COAGULATION ASSAY 0.98 Normal 0.90-1.10 [facility] Comment on above: Result Comment: ACCC P [...] CHEST 1995;108:[id number]. Performed By: #### L [id number] ####[facility] ([facility])[address] [place] [address] PROTHROMBIN TIME (PT) IN PPP BY COAGULATION ASSAY 13.0 Seconds Normal 12.3-14.8 [facility] Comment on above: Performed By: #### L [id number] ####[facility] [[email or web address] LAB ([facility])[address] [place] [address] TROPONIN Ion 06-29-2023 Troponin I.cardiac [Mass/Vol] 0.06 ng/mL High 0.00-0.04 [facility] Comment on above: Performed By: #### L [id number] #### [facility] ([facility]) [address] [place] [address] Troponin I.cardiac [Mass/Vol] 0.07 ng/mL High 0.00-0.04 [facility] Comment on above: Performed By: #### L [id number] ####[facility] [[email or web address] LAB ([facility])[address] [place] [address] Troponin I.cardiac [Mass/Vol] 0.07 ng/mL High 0.00-0.04 [facility] Comment on above: Performed By: #### L [id number] #### [facility] [[email or web address] LAB ([facility]) [address] [place] [address] CBC W MANUAL DIFFon 08-25-19 ANISOCYTOSIS 1+ Normal [facility] Comment on above: Performed By: #### Isabell PONCE ####[facility] [address] [place] [id number]. Nahed Yañez ATYPICAL LYMPH # Normal [facility] Comment on above: Performed By: #### C BCISAIAH ####[facility] [address] [place] [address]Dr. Nahed Yañez ATYPICAL LYMPH % Normal [facility] Comment on above: Performed By: #### C BCISAIAH ####[facility] [address] [place] [address]Dr. Yilan Yañez BAND # 0.2 103/ul Normal 0.0-0.3 [facility] Comment on above: Performed By: #### C ROSARIO ####[facility] [address] [place], [place] [address]Dr. Rosemarielan Yañez BAND % 1 % Normal 0-5 [facility] Comment on above: Performed By: #### C ROSARIO ####[facility] J[address] [place], [place] [address]Dr. Nahed Yañez BASOM # 0.00 103/ul Normal 0.00-0.10 [facility] Comment on above: Performed By: #### C ROSARIO ####[facility] [address] [place], [place] [address]Dr. Nahed Yañez BASOM % 0.0 % Critically low 0.2-2.0 [facility] Comment on above: Performed By: #### C ROSARIO ####[facility] [address] [place], [place] [address]Dr. Yilan Yañez BLAST # Normal [facility] Comment on above: Performed By: #### C ROSARIO ####[facility] [address] [place], [place] [address]Dr. Rosemarielan Yañez BLAST % Normal [facility] Comment on above: Performed By: #### C ROSARIO ####[facility] [address] [place], [place] [address]Dr. Nahed Yañez CORRECTED WBC Normal 4.0-11.0 [facility] Comment on above: Performed By: #### C ROSARIO ####[facility] [address]urxzhpp[address] [place] [id number]. Nahed Yñaez EOS # 0.00 103/ul Normal 0.00-0.70 [facility] Comment on above: Performed By: #### C ROSARIO ####[facility] [address] [place] [id number]. Nahed Yañez EOS% 0.0 % Critically low 0.9-7.0 [facility] Comment on above: Performed By: #### C ROSARIO ####[facility] [address] [place] [id number]. Nahed Yañez HCT 33.9 % Critically low 36.0-48.0 [facility] Comment on above: Performed By: #### C ROSARIO ####[facility] [address] [place], [place] [address]Dr. Nahed Yañez HGB 10.8 g/dl Critically low 12.0-16.0 [facility] Comment on above: Performed By: #### C ROSARIO ####[facility] [address] [place], [place] [address]Dr. Nahed Yañez HYPOCHROMASIA SLIGHT Normal [facility] Comment on above: Performed By: #### C ROSARIO ####[facility] [address] [place], [place] [address]Dr. Nahed Yañez LYMPHM # 2.59 103/ul Normal 1.20-3.80 [facility] Comment on above: Performed By: #### C ROSARIO ####[facility] [address] [place], [place] [address]Dr. Nahed Yañez LYMPHM% 16.0 % Critically low 20.5-60.0 [facility] Comment on above: Performed By: #### C ROSARIO ####[facility] Br[address] [place], [place] [address]Dr. Nahed Yañez MCH 28.5 pg Normal 26.7-34.0 [facility] Comment on above: Performed By: #### C ROSARIO ####[facility] V[address]nisw[address] [place], [place] [address]Dr. Nahed Yañez MCHC 31.9 g/dl Normal 29.9-35.2 [facility] Comment on above: Performed By: #### C ROSARIO ####[facility] [address] [place] [address]Dr. Nahed Yañez MCV 89.4 fL Normal 81.0-99.0 [facility] Comment on above: Performed By: #### C ROSARIO ####[facility] [address]xs[address] [place] [id number]. Nahed Yañez METAMYELOCYTE # Normal [facility] Comment on above: Performed By: #### C ROSARIO ####[facility] [address] [place] [id number]. Nahed Yañez METAMYELOCYTE % Normal [facility] Comment on above: Performed By: #### C ROSARIO ####[facility] [address]xf[address]kb[address] [place] [id number]. Nahed Yañez MONOM# 1.30 103/ul Critically high 0.30-0.80 [facility] Comment on above: Performed By: #### C ROSARIO ####[facility] [address] [place], [place] [address]Dr. Nahed Yañez MONOM% 8.0 % Normal 1.7-12.0 [facility] Comment on above: Performed By: #### C ROSARIO ####[facility] [address] [place] [id number]. Nahed Yañez MPV 9.8 fL Normal 9.5-13.5 [facility] Comment on above: Performed By: #### C ROSARIO ####[facility] [address]ed[address] [place] [id number]. Nahed Yañez MYELOCYTE # Normal [facility] Comment on above: Performed By: #### C ROSARIO ####[facility] [address] [place], [place] [address]Dr. Nahed Yañez MYELOCYTE % Normal [facility] Comment on above: Performed By: #### C ORSARIO ####[facility] [address] [place], [place] [address]Dr. Nahed Yañez NRBC Normal [facility] Comment on above: Performed By: #### C ROSARIO ####[facility] [address] [place], [place] [address]Ag. Nahed Yañez PLT 302 103/ul Normal 150-450 [facility] Comment on above: Performed By: #### C ROSARIO ####[facility] [address] [place], [place] [address]Lt. Nahed Yañez RBC 3.79 106/ul Critically low 4.20-5.40 [facility] Comment on above: Performed By: #### C ROSARIO ####[facility] T[address]k76[address] [place], [place] [address]Jg. Nahed Yañez RDW 15.3 % Critically high 11.0-15.0 [facility] Comment on above: Performed By: #### C ROSARIO ####[facility] [address] [place], [place] [address]Fc. Nahed Yañez SEG # 12.15 103/ul Critically high 1.40-6.50 [facility] Comment on above: Performed By: #### C ROSARIO ####[facility] [address] [place], [place] [address]Gk. Nahed Yañez SEG % 75.0 % Normal 43.0-75.0 [facility] Comment on above: Performed By: #### C ROSARIO ####[facility] Jurimrozyu9452 [place], [place] [address]Gu. Nahed Yañez WBC 16.2 103/ul Critically high 4.0-11.0 [facility] Comment on above: Performed By: #### C ROSARIO ####[facility] Zofmyzxxha1149 [place], [place] [address]Ag. Rosemarieashley Yañez POINT OF CARE GLUCOSEon 08-12 Glucose [Mass/Vol] 221 mg/dL Critically high 74-106 [facility] Comment on above: Performed By: #### P OCGLUC ####[facility] Nyiccczsbq6215 [place] [id number] Yañez PROF 14(COMP METB)on 08-24- 023 Albumin [Mass/Vol] 2.2 g/dL Critically low 3.4-5.0 [facility] Comment on above: Performed By: #### C RENZO, JUDY ####[facility] Epawtsvyyl5832 [place] [address]Dr. Nahed Otilio Albumin/Globulin [Mass ratio] 0.6 {ratio} Normal [facility] Comment on above: Performed By: #### C RENZO, JUDY ####[facility] Gpsunbiach4408 [place] [address]Dr. Nahed Otilio ALP [Catalytic activity/Vol] 87 U/L Normal 46-116 [facility] Comment on above: Performed By: #### C RENZO, JUDY ####[facility] Gljowquawg[address] [place], [place] [address]Dr. Nahed Yañez ALT [Catalytic activity/Vol] 17 U/L Normal 14-59 [facility] Comment on above: Performed By: #### C RENZO, JUDY ####[facility] Kgjhskmnit[address] [place], [place] [address]Dr. Nahed Yañez Anion gap [Moles/Vol] 9.4 mmol/L Normal [facility] Comment on above: Performed By: #### C RENZO, JUDY ####[facility] Vfsejceaul124[address] [place], [place] [address]Dr. Nahed Yañez AST [Catalytic activity/Vol] 13 U/L Critically low 15-37 [facility] Comment on above: Performed By: #### C RENZO, JUDY ####[facility] Fxvjyqlufk[address] [place], [place] [address]Dr. Nahed Yañez Bilirubin [Mass/Vol] 0.2 mg/dL Normal 0.2-1.0 [facility] Comment on above: Performed By: #### C RENZO, JUDY ####[facility] Tbyzbfrnfn[address] [place], [place] [address]Dr. Nahed Yañez Calcium [Mass/Vol] 9.1 mg/dL Normal 8.5-10.1 [facility] Comment on above: Performed By: #### C RENZO, JUDY ####[facility] Hqdbuipfvn334[address] [place], [place] [address]Dr. Nahed Yañez Chloride [Moles/Vol] 103 mmol/L Normal 98-107 [facility] Comment on above: Performed By: #### C RENZO, JUDY ####[facility] Pzmcawstks5013 [place] [address]Dr. Nahed Yañez CO2 [Moles/Vol] 29.1 mmol/L Normal 21.0-32.0 [facility] Comment on above: Performed By: #### C RENZO, JUDY ####[facility] Wsigzxpovv5[address] [place], [place] [address]Dr. Nahed Yañez Creatinine [Mass/Vol] 1.05 mg/dL Critically high 0.55-1.02 [facility] Comment on above: Performed By: #### C RENZO, JUDY ####[facility] Btwheulwpx[address] [place], [place] [address]Dr. Nahed Yañez EGFR-AF VENEZUELAN >60 Normal >=60 [facility] Comment on above: Performed By: #### C RENZO, JUDY ####[facility] Azacwxnigm040[address] [place], [place] [address]Dr. Nahed Yañez EGFR-NON AF VENEZUELAN 53 mL/min/1.73m2 Critically low >=60 [facility] Comment on above: Performed By: #### C RENZO, JUDY ####[facility] Wgmbnjkeom277[address] [place], [place] [address]Dr. Nahed Yañez Globulin (S) [Mass/Vol] 3.5 g/dL Normal [facility] Comment on above: Performed By: #### C RENZO, JUDY ####[facility] Jifpcmlnlu317[address] [place], [place] [address]Dr. Nahed Yañez Glucose [Mass/Vol] 121 mg/dL Critically high 74-106 [facility] Comment on above: Performed By: #### C RENZO, JUDY ####[facility] Pxcirfjvuk[address] [place], [place] [address]Dr. Nahed Yañez Potassium [Moles/Vol] 4.5 mmol/L Normal 3.5-5.1 [facility] Comment on above: Performed By: #### C RENZO, JUDY ####[facility] Fkyyxtdizq1799 [place] [address]Dr. Nahed Yañez Protein [Mass/Vol] 5.7 g/dL Critically low 6.4-8.2 [facility] Comment on above: Performed By: #### C RENZO, JUDY ####[facility] Muprhmkprh0726 [place] [address]Dr. Nahed Yañez Sodium [Moles/Vol] 137 mmol/L Normal 136-145 [facility] Comment on above: Performed By: #### C RENZO, JUDY ####[facility] Nesdaibspk674[address] [place], [place] [address]Dr. Nahed Yañez Urea nitrogen [Mass/Vol] 24.0 mg/dL Critically high 7.0-18.0 [facility] Comment on above: Performed By: #### C RENZO, JUDY ####[facility] Mymnxsiase213[address] [place], [place] [address]Dr. Nahed Yañez Urea nitrogen/Creatinine [Mass ratio] 22.9 mg/mg Normal [facility] Comment on above: Performed By: #### C RENZO, JUDY ####[facility] Ptgxelfekf35[address] [place], [place] [address]Dr. Nahed Otilio THEOPHYLLINEon 08-24-2022 THEOPHYLLINE 18.2 ug/mL Normal 10.0-20.0 [facility] Comment on above: Performed By: #### C RENZO, JUDY ####[facility] Momtqtwhrn69[address] [place], [place] [address]Dr. Nahed Otilio CBC W MANUAL DIFFon 08-24-19 23 ATYPICAL LYMPH # 0.20 103/ul Normal [facility] Comment on above: Performed By: #### C ROSARIO ####[facility] Rxrkomllbs[address] [place], [place] [address]Dr. Nahed Otilio ATYPICAL LYMPH % 1 % Normal [facility] Comment on above: Performed By: #### C ROSARIO ####[facility] Vltmkdpquo020[address] [place], [place] [address]Dr. Rosemarieashley Otilio BAND # 0.0 103/ul Normal 0.0-0.3 [facility] Comment on above: Performed By: #### C ROSARIO ####[facility] Kfsbjaqmlv6279 [place] [id number]. Nahed Yañez BAND % 0 % Normal 0-5 [facility] Comment on above: Performed By: #### C BCISAIAH ####[facility] Jottbktncq1394 [place] [phone]. Nahed Yañez BASOM # 0.00 103/ul Normal 0.00-0.10 [facility] Comment on above: Performed By: #### C BCISAIAH ####[facility] Dwvasihdan1489 [place] [address]Dr. Nahed Yañez BASOM % 0.0 % Critically low 0.2-2.0 [facility] Comment on above: Performed By: #### C ROSARIO ####[facility] Fhjwgczjwl6954 [place] [address]Dr. Nahed Yañez BLAST # Normal [facility] Comment on above: Performed By: #### C ROSARIO ####[facility] Npahsefonq[address] [place], [place] [address]Dr. Yiashley Yañez BLAST % Normal [facility] Comment on above: Performed By: #### C ROSARIO ####[facility] Xzeuqtdkwz6335 [place] [address]Dr. Nahed Yañez CORRECTED WBC Normal 4.0-11.0 [facility] Comment on above: Performed By: #### C ROSARIO ####[facility] Uvebioemwr6314 [place] [address]Dr. Nahed Yañez EOS # 0.00 103/ul Normal 0.00-0.70 [facility] Comment on above: Performed By: #### C BCISAIAH ####[facility] Rmakzzdaqm3286 [place] [address]Dr. Nahed Yañez EOS% 0.0 % Critically low 0.9-7.0 [facility] Comment on above: Performed By: #### C ROSARIO ####[facility] Z[address]hcqjfsw[address] [place], [place] [address]Dr. Nahed Yañez HCT 33.5 % Critically low 36.0-48.0 [facility] Comment on above: Performed By: #### Isabell PONCE ####[facility] Eccqevgrqg6936 [place], [place] [address]Kl. Nahed Yañez HGB 10.7 g/dl Critically low 12.0-16.0 [facility] Comment on above: Performed By: #### Isabell PONCE ####[facility] Gkxslvauxd1664 [place], [place] [address]Mm. Nahed Yañez LYMPHM # 1.39 103/ul Normal 1.20-3.80 [facility] Comment on above: Performed By: #### Isabell PONCE ####[facility] Qvpejmvyis0635 [place], [place] [address]Sg. Nahed Yañez LYMPHM% 7.0 % Critically low 20.5-60.0 [facility] Comment on above: Performed By: #### Isabell PONCE ####[facility] Edvelyoywb2543 [place], [place] [address]Js. Nahed Yañez MCH 28.5 pg Normal 26.7-34.0 [facility] Comment on above: Performed By: #### Isabell PONCE ####[facility] Wuglqlotev6676 [place], [place] [address]Ky. Nahed Yañez MCHC 31.9 g/dl Normal 29.9-35.2 [facility] Comment on above: Performed By: #### Isabell PONCE ####[facility] Jpggjilrvi6156 [place], [place] [address]Pc. Nahed Yañez MCV 89.1 fL Normal 81.0-99.0 [facility] Comment on above: Performed By: #### Isabell PONCE ####[facility] Cxtipvzjpj4081 [place], [place] [address]Gf. Nahed Yañez METAMYELOCYTE # Normal [facility] Comment on above: Performed By: #### Isabell PONCE ####[facility] Prnzespfhu6346 [place], [place] [address]Yz. Nahed Otilio METAMYELOCYTE % Normal [facility] Comment on above: Performed By: #### Isabell PONCE ####[facility] Eucohjbqpo9216 [place] [id number]. Nahed Yañez MONOM# 0.40 103/ul Normal 0.30-0.80 [facility] Comment on above: Performed By: #### C ROSARIO ####[facility] Swdpjsiqgp2603 [place] [id number]. Nahed Yañez MONOM% 2.0 % Normal 1.7-12.0 [facility] Comment on above: Performed By: #### C ROSARIO ####[facility] Nhtevifhvo6105 [place] [id number]. Nahed Yañez MPV 10.0 fL Normal 9.5-13.5 [facility] Comment on above: Performed By: #### C ROSARIO ####[facility] Mxaxiaeuzy[address] [place], [place] [address]Dr. Nahed Yañez MYELOCYTE # Normal [facility] Comment on above: Performed By: #### C ROSARIO ####[facility] Fbegafjbvj[address] [place], [place] [address]Dr. Nahed Yañez MYELOCYTE % Normal [facility] Comment on above: Performed By: #### C ROSARIO ####[facility] Vryuzbkfrz1768 [place] [address]Dr. Nahed Yañez NRBC Normal [facility] Comment on above: Performed By: #### C ROSARIO ####[facility] Ljnxdwjofm4794 [place] [phone]. Nahed Yañez PLT 338 103/ul Normal 150-450 [facility] Comment on above: Performed By: #### C ROSARIO ####[facility] Gavkepfwzj4172 [place] [phone]. Nahed Yañez RBC 3.76 106/ul Critically low 4.20-5.40 [facility] Comment on above: Performed By: #### C ROSARIO ####[facility] Mijrpnmzkn[address] [place], [place] [address]Dr. Nahed Yañez RDW 15.3 % Critically high 11.0-15.0 [facility] Comment on above: Performed By: #### C ROSARIO ####[facility] Tlhzyojqcc069[address] [place], [place] [address]Dr. Nahed Yañez SEG # 17.91 103/ul Critically high 1.40-6.50 [facility] Comment on above: Performed By: #### C BCISAIAH ####[facility] Wgxvhovmxt4136 [place] [address]Dr. Nahed Yañez SEG % 90.0 % Critically high 43.0-75.0 [facility] Comment on above: Performed By: #### C BCMAN ####[facility] Iueljdyfbz3573 [place] [address]Dr. Nahed Yañez WBC 19.9 103/ul Critically high 4.0-11.0 [facility] Comment on above: Performed By: #### C ROSARIO ####[facility] Wykbpltttw5141 [place] [address]Dr. Nahed Otilio POINT OF CARE GLUCOSEon 08-12 Glucose [Mass/Vol] 200 mg/dL Critically high 74-106 [facility] Comment on above: Performed By: #### P OCGLUC ####[facility] Tpkcmonhlm4273 [place] [address]Dr. Nahed Otilio Glucose [Mass/Vol] 131 mg/dL Critically high 74-106 [facility] Comment on above: Performed By: #### P OCGLUC ####[facility] Xenbgtbhsj7188 [place] [address]Dr. Nahed Otilio Glucose [Mass/Vol] 176 mg/dL Critically high 74-106 [facility] Comment on above: Performed By: #### P OCGLUC ####[facility] Rqhytumqcr6781 [place] [address]DrShaun Yañez PROF 14(COMP METB)on 023 Albumin [Mass/Vol] 2.2 g/dL Critically low 3.4-5.0 [facility] Comment on above: Performed By: #### Nydia ELLER CMP ####[facility] Wnkzgrnsdg5786 [place] [address]Dr. Nahed Yañez Albumin/Globulin [Mass ratio] 0.6 {ratio} Normal [facility] Comment on above: Performed By: #### Nydia ELLER CMP ####[facility] Cfmxskuaxr1128 [place] [address]Dr. Nahed Yañez ALP [Catalytic activity/Vol] 101 U/L Normal 46-116 [facility] Comment on above: Performed By: #### Nydia ELLER, CMP ####[facility] Irvzvxucoz9292 [place] [address]Dr. Nahed Yañez ALT [Catalytic activity/Vol] 19 U/L Normal 14-59 [facility] Comment on above: Performed By: #### Nydia ELLER, CMP ####[facility] Zdrpvmalzv3509 [place] [address]Dr. Nahed Yañez Anion gap [Moles/Vol] 12.0 mmol/L Normal [facility] Comment on above: Performed By: #### Nydia ELLER, CMP ####[facility] Sionqrcdov8[address] [place], [place] [address]Dr. Nahed Yañez AST [Catalytic activity/Vol] 14 U/L Critically low 15-37 [facility] Comment on above: Performed By: #### Nydia ELLER CMP ####[facility] Ukjgfzbbsi65[address] [place], [place] [address]Dr. Rosemarieashley Yaeñz Bilirubin [Mass/Vol] 0.2 mg/dL Normal 0.2-1.0 [facility] Comment on above: Performed By: #### Nydia ELLER, CMP ####[facility] Nxildxriae82[address] [place], [place] [address]Dr. Rosemarieashley Yañez Calcium [Mass/Vol] 9.5 mg/dL Normal 8.5-10.1 [facility] Comment on above: Performed By: #### Nydia ELLER, CMP ####[facility] Sbfwhhwyhu26[address] [place], [place] [address]Dr. Nahed Yañez Chloride [Moles/Vol] 105 mmol/L Normal 98-107 [facility] Comment on above: Performed By: #### Nydia ELLER, CMP ####[facility] Qzkhnxmyiu1835[address] [place], [place] [address]Dr. Nahed Yañez CO2 [Moles/Vol] 27.9 mmol/L Normal 21.0-32.0 [facility] Comment on above: Performed By: #### Nydia ELLER, CMP ####[facility] Ifsktqrdak9832 [place] [address]Dr. Nahed Yañez Creatinine [Mass/Vol] 1.08 mg/dL Critically high 0.55-1.02 [facility] Comment on above: Performed By: #### Nydia ELLER, CMP ####[facility] Aovtqaheeh7235 [place] [address]Dr. Nhaed Yañez EGFR-AF VENEZUELAN >60 Normal >=60 [facility] Comment on above: Performed By: #### Nydia ELLER, CMP ####[facility] Nbbxycozbr[address] [place], [place] [address]Dr. Nahed Yañez EGFR-NON AF VENEZUELAN 52 mL/min/1.73m2 Critically low >=60 [facility] Comment on above: Performed By: #### Nydia ELLER, CMP ####[facility] Conzriczib[address] [place], [place] [address]Dr. Nahed Yañez Globulin (S) [Mass/Vol] 3.7 g/dL Normal [facility] Comment on above: Performed By: #### Nydia ELLER, CMP ####[facility] Amtllztzae26[address] [place], [place] [address]Dr. Nahed Yañez Glucose [Mass/Vol] 182 mg/dL Critically high 74-106 [facility] Comment on above: Performed By: #### Nydia ELLER, CMP ####[facility] Gqedrdoust213[address] [place], [place] [address]Dr. Nahed Yañez Potassium [Moles/Vol] 3.9 mmol/L Normal 3.5-5.1 [facility] Comment on above: Performed By: #### Nydia ELLER, CMP ####[facility] Gfhpudgejh974[address] [place], [place] [address]Dr. Nahed Yañez Protein [Mass/Vol] 5.9 g/dL Critically low 6.4-8.2 [facility] Comment on above: Performed By: #### Nydia ELLER, CMP ####[facility] Vccxsjjbvy[address] [place], [place] [address]Dr. Nahed Yañez Sodium [Moles/Vol] 141 mmol/L Normal 136-[address] [facility] Comment on above: Performed By: #### Nydia ELLER CMP ####[facility] Kmqgiqmalt70[address] [place], [place] [address]Dr. Nahed Yañez Urea nitrogen [Mass/Vol] 20.0 mg/dL Critically high 7.0-18.0 [facility] Comment on above: Performed By: #### Nydia ELLER CMP ####[facility] Xpmjxlxuzn[address] [place], [place] [address]Dr. Nahed Yañez Urea nitrogen/Creatinine [Mass ratio] 18.5 mg/mg Normal [facility] Comment on above: Performed By: #### Nydia ELLER CMP ####[facility] Vzzkqtzhqa[address] [place], [place] [address]Dr. Nahed Yañez THEOPHYLLINEon 08-23-2022 THEOPHYLLINE 22.9 ug/mL Critically high 10.0-20.0 [facility] Comment on above: Performed By: #### Nydia ELLER CMP ####[facility] Ngiaoapnzt85[address] [place], [place] [address]Dr. Nahed Yañez CBC AUTO DIFFon 08-22-2022 BASO # 0.0 103/ul Normal 0.0-0.1 [facility] Comment on above: Performed By: #### C BC ####[facility] Oissgakyue[address] [place], [place] [address]Dr. Nahed Otilio Basophils/100 WBC (Bld) 0.1 % Critically low 0.2-2.0 [facility] Comment on above: Performed By: #### C BC ####[facility] Dtkauxyxyc68[address] [place], [place] [address]Dr. Nahed Yañez EO # 0.0 103/ul Normal 0.0-0.7 [facility] Comment on above: Performed By: #### C BC ####[facility] Btyzjchuoj6740[address] [place], [place] [address]Dr. Nahed Yañez Eosinophils/100 WBC (Bld) 0.0 % Critically low 0.9-7.0 [facility] Comment on above: Performed By: #### C BC ####[facility] Mylxuiivgc8731 [place] [address]Dr. Nahed Yañez Erythrocyte distribution width (RBC) [Ratio] 15.1 % Critically high 11.0-15.0 [facility] Comment on above: Performed By: #### C BC ####[facility] Xzklzbrsqt3948 [place] [address]Dr. Nahed Yañez Hematocrit (Bld) [Volume fraction] 31.4 % Critically low 36.0-48.0 [facility] Comment on above: Performed By: #### C BC ####[facility] Uhmxaqwqjs[address] [place], [place] [address]Dr. Nahed Yañez Hemoglobin (Bld) [Mass/Vol] 10.2 g/dL Critically low 12.0-16.0 [facility] Comment on above: Performed By: #### C BC ####[facility] Fbkfwvchzw[address] [place], [place] [address]Dr. Nahed Yañez IG # 0.08 10e3/ul Critically high 0.00-0.03 [facility] Comment on above: Performed By: #### C BC ####[facility] Krwxtaxmdl[address] [place], [place] [address]Dr. Nahed Otilio IG % 0.6 % Critically high 0.0-0.5 [facility] Comment on above: Performed By: #### C BC ####[facility] Akpipoomwb84[address] [place], [place] [address]Dr. Nahed Otilio LYMPH # 0.9 103/ul Critically low 1.2-3.8 [facility] Comment on above: Performed By: #### C BC ####[facility] Duwzaeifun196[address] [place], [place] [address]Dr. Rosemarieashley Yañez Lymphocytes/100 WBC (Bld) 6.1 % Critically low 20.5-60.0 [facility] Comment on above: Performed By: #### C BC ####[facility] Ipstqdufcu93[address] [place], [place] [address]Dr. Rosemarieashley Yañez MANUAL DIFF REQ NO Normal [facility] Comment on above: Performed By: #### C BC ####[facility] Mevwgsdqmx3257 [place] [id number]. Nahed Yañez MCH (RBC) [Entitic mass] 28.3 pg Normal 26.7-34.0 [facility] Comment on above: Performed By: #### C BC ####[facility] Zxiayhcojw9209 [place] [id number]. Nahed Yañez MCHC (RBC) [Mass/Vol] 32.5 g/dL Normal 29.9-35.2 [facility] Comment on above: Performed By: #### C BC ####[facility] Rkvegrtmza7781 [place] [address]Dr. Nahed Otilio MCV (RBC) [Entitic vol] 87.0 fL Normal 81.0-99.0 [facility] Comment on above: Performed By: #### C BC ####[facility] Pewcmgupyb[address] [place], [place] [address]Dr. Nahed Yañez MONO # 0.7 103/ul Normal 0.3-0.8 [facility] Comment on above: Performed By: #### C BC ####[facility] Nyjvikblxc85[address] [place], [place] [address]Dr. Rosemarieashley Yañez Monocytes/100 WBC (Bld) 5.1 % Normal 1.7-12.0 [facility] Comment on above: Performed By: #### C BC ####[facility] Nbcsxbaxuy[address] [place], [place] [address]Dr. Nahed Yañez NEUT # 12.2 103/ul Critically high 1.4-6.5 [facility] Comment on above: Performed By: #### C BC ####[facility] Wptktfwuyp[address] [place], [place] [address]Dr. Nahed Yañez Neutrophils/100 WBC (Bld) 88.1 % Critically high 43.0-75.0 [facility] Comment on above: Performed By: #### C BC ####[facility] Zygqncqcnc[address] [place], [place] [address]Dr. Nahed Yañez Platelet mean volume (Bld) [Entitic vol] 10.2 fL Normal 9.5-13.5 [facility] Comment on above: Performed By: #### C BC ####[facility] Pftgifzxmk1279 [place] [id number]. Nahed Yañez PLT 271 103/ul Normal 150-450 [facility] Comment on above: Performed By: #### C BC ####[facility] Wfyhntxiib1036 [place], [place] [address]Zu. Nahed Yañez RBC 3.61 106/ul Critically low 4.20-5.40 [facility] Comment on above: Performed By: #### C BC ####[facility] Jvcdinchss9742 [place] [id number]. Nahed Yañez WBC 13.9 103/ul Critically high 4.0-11.0 [facility] Comment on above: Performed By: #### C BC ####[facility] Xabotrhdlr6586 [place] [id number]. Nahed Otilio CULTURE URINEon 08-22-2022 CULTURE URINE Culture Observations : LIGHT GROWTH OF MIXED GENITAL MIGUEL. NO POTENTIAL PATHOGENS SEEN. Normal [facility] Comment on above: Performed By: #### U RCX ####[facility] Wdhqseqlaj8187 [place] [phone]. Nahed Yañez POINT OF CARE GLUCOSEon 08-12 Glucose [Mass/Vol] 252 mg/dL Critically high 74-106 [facility] Comment on above: Performed By: #### P OCGLUC ####[facility] Ferysibpgb7188 [place] [id number]. Nahed Yañez Glucose [Mass/Vol] 293 mg/dL Critically high 74-106 [facility] Comment on above: Performed By: #### P OCGLUC ####[facility] Cylekxzskb5223 [place] [phone]. Nahed Yañez Glucose [Mass/Vol] 292 mg/dL Critically high 74-106 [facility] Comment on above: Performed By: #### P OCGLUC ####[facility] Pfqbjbgbxo1047 [place] [phone]. Nahed Yañez PROF 14(COMP METB)on 04-11-2 023 Albumin [Mass/Vol] 2.1 g/dL Critically low 3.4-5.0 [facility] Comment on above: Performed By: #### C MP ####[facility] Jycvvnilim9458 [place] [address]Dr. Nahed Otilio Albumin/Globulin [Mass ratio] 0.5 {ratio} Normal [facility] Comment on above: Performed By: #### C MP ####[facility] Cecuvrbymz8598 [place] [address]Dr. Rosemarieashley Otilio ALP [Catalytic activity/Vol] 92 U/L Normal 46-116 [facility] [facility] Comment on above: Performed By: #### C MP ####[facility] Eotdokouia[address] [place], [place] [address]Dr. Naehd Yañez ALT [Catalytic activity/Vol] 19 U/L Normal 14-59 [facility] Comment on above: Performed By: #### C MP ####[facility] Rckqmpyrya[address] [place], [place] [address]Dr. Nahed Yañez Anion gap [Moles/Vol] 15.9 mmol/L Normal [facility] Comment on above: Performed By: #### C MP ####[facility] Yahidqehha[address] [place], [place] [address]Dr. Nahed Yañez AST [Catalytic activity/Vol] 8 U/L Critically low 15-37 [facility] Comment on above: Performed By: #### C MP ####[facility] Arueujnacv847[address] [place], [place] [address]Dr. Nahed Yañez Bilirubin [Mass/Vol] 0.3 mg/dL Normal 0.2-1.0 [facility] Comment on above: Performed By: #### C MP ####[facility] Vasvxgsxmi107[address] [place], [place] [address]Dr. Nahed Yañez Calcium [Mass/Vol] 9.4 mg/dL Normal 8.5-10.1 [facility] Comment on above: Performed By: #### C MP ####[facility] Csyzlpdtbi[address] [place], [place] [address]Dr. Nahed Yañez Chloride [Moles/Vol] 101 mmol/L Normal 98-107 [facility] Comment on above: Performed By: #### C MP ####[facility] Kwidcvljht[address] [place] [address]Dr. Nahed Otilio CO2 [Moles/Vol] 22.5 mmol/L Normal 21.0-32.0 [facility] Comment on above: Performed By: #### C MP ####[facility] Osmypgvlgs[address] [place] [address]Dr. Nahed Otilio Creatinine [Mass/Vol] 1.16 mg/dL Critically high 0.55-1.02 [facility] Comment on above: Performed By: #### C MP ####[facility] Keswfbcjfx2[address] [place] [address]Dr. Nahed Otilio EGFR-AF VENEZUELAN 58 mL/min/1.73m2 Critically low >=60 [facility] Comment on above: Performed By: #### C MP ####[facility] Jpzeszpzoo30[address] [place] [address]Dr. Rosemarieashley Otilio EGFR-NON AF VENEZUELAN 47 mL/min/1.73m2 Critically low >=60 [facility] Comment on above: Performed By: #### C MP ####[facility] Dufnibftoi[address] [place], [place] [address]Dr. Nahed Otilio Globulin (S) [Mass/Vol] 4.2 g/dL Normal [facility] Comment on above: Performed By: #### C MP ####[facility] Uhwabhwtue[address] [place] [address]Dr. Nahed Yañez Glucose [Mass/Vol] 409 mg/dL Critically high 74-106 [facility] Comment on above: Performed By: #### C MP ####[facility] Uhkzgexkhb1580 [place] [id number]. Nahed Yañez Potassium [Moles/Vol] 3.4 mmol/L Critically low 3.5-5.1 [facility] Comment on above: Performed By: #### C MP ####[facility] Vvrfkbptpj95[address] [place] [address]Dr. Nahed Yañez Protein [Mass/Vol] 6.3 g/dL Critically low 6.4-8.2 Th e [facility] Comment on above: Performed By: #### C MP ####[facility] Evobbfdyfa645[address] [place], [place] [address]Dr. Nahed Yañez Sodium [Moles/Vol] 136 mmol/L Normal 136-[address] [facility] Comment on above: Performed By: #### C MP ####[facility] Zbuuojbjmz[address] [place], [place] [address]Dr. Nahed Yañez Urea nitrogen [Mass/Vol] 16.0 mg/dL Normal 7.0-18.0 [facility] Comment on above: Performed By: #### C MP ####[facility] Vdtbqiqwsv62[address] [place], [place] [address]Dr. Nahed Yañez Urea nitrogen/Creatinine [Mass ratio] 13.8 mg/mg Normal [facility] Comment on above: Performed By: #### C MP ####[facility] Qroybablsn8215[address] [place], [place] [address]Dr. Nahed Yañez THEOPHYLLINEon 08-22-2022 THEOPHYLLINE 13.4 ug/mL Normal 10.0-20.0 [facility] Comment on above: Performed By: #### T RAFITA ####[facility] Lckewnibqh440[address] [place], [place] [address]Dr. Nahed Yañez UA RANDOM W/MICROSCOPICon BACTERIA NONE SEEN Normal NONE SEEN [facility] Comment on above: Performed By: #### U AMIC ####[facility] Majippwptn326[address] [place], [place] [address]Dr. Nahed Yañez Bilirubin Ql (U) Negative Normal NEGATIVE [facility] Comment on above: Performed By: #### U AMIC ####[facility] Dnecetgypg180[address] [place], [place] [address]Dr. Nahed Yañez CAST NONE SEEN Normal NONE SEEN [facility] Comment on above: Performed By: #### U AMIC ####[facility] Kgbijfxqky344[address] [place], [place] [address]Dr. Nahed Yañez Clarity (U) CLEAR Normal CLEAR The [facility] Comment on above: Performed By: #### U AMIC ####[facility] Spnjrvgbzn0695 [place] [address]Dr. Nahed Yañez Color (U) LT. YELLOW Normal YELLOW The [facility] Comment on above: Performed By: #### U AMIC ####[facility] Afcfjcvcsh3924 [place] [address]Dr. Nahed Yañez Crystals LM Nom (Urine sed) NONE SEEN Normal NONE SEEN The [facility] Comment on above: Performed By: #### U AMIC ####[facility] Torbeusjwr7930 [place] [address]Dr. Nahed Yañez Epithelial cells LM Ql (Urine sed) RARE Normal NONE SEEN /RARE The [facility] Comment on above: Performed By: #### U AMIC ####[facility] Qihbeyqoer12[address] [place], [place] [address]Dr. Nahed Yañez Glucose Ql (U) 100 mg/dl Abnormal NEGATIVE The [facility] Comment on above: Performed By: #### U AMIC ####[facility] Hjaksqgeyg39[address] [place], [place] [address]Dr. Nahed Yañez Hemoglobin Ql (U) Negative Normal NEGATIVE The [facility] Comment on above: Performed By: #### U AMIC ####[facility] Htsexfopqm8065[address] [place], [place] [address]Dr. Nahed Yañez Ketones Ql (U) Negative Normal NEGATIVE The [facility] Comment on above: Performed By: #### U AMIC ####[facility] Vcdghqayph1357 [place] [address]Dr. Yilan Yañez LEUKOCYTES Negative Normal NEGATIVE The [facility] Comment on above: Performed By: #### U AMIC ####[facility] Iqptraymex5719 [place] [address]Dr. Rosemarielan Yañez MUCOUS NONE SEEN Normal NONE SEEN The [facility] Comment on above: Performed By: #### U AMIC ####[facility] Npyecyoqie9720 [place] [address]Dr. Rosemarielan Yañez Nitrite Ql (U) Negative Normal NEGATIVE The [facility] Comment on above: Performed By: #### U AMIC ####[facility] Zrvkbytfof5058 [place] [address]Dr. Nahed Yañez pH (U) 5.5 [pH] Normal 5-9 The [facility] Comment on above: Performed By: #### U AMIC ####[facility] Hohierjkkx6989 [place] [address]Dr. Nahed Yañez RBC NONE SEEN Abnormal 0-2 The [facility] Comment on above: Performed By: #### U AMIC ####[facility] Ddypzptxby2911 [place] [address]Dr. Nahed Yañez SPEC GRAVITY 1.020 Normal 1.005-<=1.02 5 [facility] Comment on above: Performed By: #### U AMIC ####[facility] Kwgvpvxtes218[address] [place], [place] [address]Dr. Nahed Yañez UA PROTEIN Negative Normal NEGATIVE/ TRACE The [facility] Comment on above: Performed By: #### U AMIC ####[facility] Vdlkgsvylu3905 [place] [address]Dr. Nahed Yañez Urobilinogen Qn (U) 0.2 {Alem'U}/dL Normal 0.2 - 1. 0 The [facility] Comment on above: Performed By: #### U AMIC ####[facility] Jrrivlyipx3275[address] [place], [place] [address]Dr. Nahed Yañez WBC NONE SEEN Normal NONE SEEN The [facility] Comment on above: Performed By: #### U AMIC ####[facility] Cvjpvjwfwg6224 [place] [address]Dr. Nahed Yañez BLOOD GASES BTYon 08-21-2022 02 MODE ROOM AIR Normal The [facility] Comment on above: Performed By: #### A BG ####[facility] Cpqshggely88[address] [place], [place] [address]Dr. Nahed Yañez ALLENS TEST Positive Normal The [facility] Comment on above: Performed By: #### A BG ####[facility] Hpjsbkmhfu138[address] [place], [place] [address]Dr. Nahed Yañez Base excess Calc (Bld) [Moles/Vol] 3.2 mmol/L Critically high -2.0-2.0 The [facility] Comment on above: Performed By: #### A BG ####[facility] Lobkoboksi[address] [place] [address]Dr. Nahed Yañez BIPAP PRESSURE Normal The [facility] Comment on above: Performed By: #### A BG ####[facility] Dbypbjmsxm3244 [place] [address]Dr. Nahed Yañez CPAP Normal The [facility] Comment on above: Performed By: #### A BG ####[facility] Hqdowvdezb[address] [place], [place] [address]Dr. Nahed Yañez FIO2 Normal [facility] Comment on above: Performed By: #### A BG ####[facility] Igxyvtbxww5[address] [place], [place] [address]Dr. Nahed Yañez HCO3 (Bld) [Moles/Vol] 26.8 mmol/L Critically high 22.0-26 .0 [facility] Comment on above: Performed By: #### A BG ####[facility] Hbginzunts275[address] [place], [place] [address]Dr. Nahed Yañez LPM Normal [facility] Comment on above: Performed By: #### A BG ####[facility] Dtuypkjfcy16[address] [place], [place] [address]Dr. Nahed Yañez MINUTE VOLUME Normal The [facility] Comment on above: Performed By: #### A BG ####[facility] Kkgyfeqvoc94[address] [place], [place] [address]Dr. Nahed Yañez Oxygen (Bld) [Partial pressure] 55.1 mm[Hg] Critically low 80.0-100.0 The [facility] Comment on above: Performed By: #### A BG ####[facility] Ueauxkwbna819[address] [place], [place] [address]Dr. Nahed Yañez Oxygen saturation in Blood 90.2 % Critically low 95.0-100.0 The [facility] Comment on above: Performed By: #### A BG ####[facility] Daqnhbbpoc8[address] [place], [place] [address]Dr. Nahed Yañez PCO2 36.7 mmHg Normal 35.0-45.0 [facility] Comment on above: Performed By: #### A BG ####[facility] Cfojonwfuj5719 [place] [address]Dr. Nahed Yañez PEEP [facility] Comment on above: Performed By: #### A BG ####[facility] Cfiakdpkhm4041 [place] [address]Dr. Nahed Yañez pH (Bld) 7.472 [pH] Critically high 7.350-7.450 [facility] Comment on above: Performed By: #### A BG ####[facility] Zidtcgmbtt6614 [place] [address]Dr. Nahed Yañez PIP [facility] Comment on above: Performed By: #### A BG ####[facility] Kuqsarsaej1435 [place] [address]Dr. Nahed Yañez PS [facility] Comment on above: Performed By: #### A BG ####[facility] Zmoexmczxn[address] [place], [place] [address]Dr. Nahed Yañez PUNCTURE SITE LR Normal The [facility] Comment on above: Performed By: #### A BG ####[facility] Ciqzpujlrq4453 [place] [address]Dr. Nahed Yañez RATE [facility] Comment on above: Performed By: #### A BG ####[facility] Uixhomksqb3201 [place] [address]Dr. Nahed Yañez VENT MODE [facility] Comment on above: Performed By: #### A BG ####[facility] Iaxyogxxcn1094 [place] [address]Dr. Nahed Yañez VT [facility] Comment on above: Performed By: #### A BG ####[facility] Mtmyowkdbg[address] [place], [place] [address]Dr. Nahed Yañez BNPon 08-21-2022 Natriuretic peptide B (Bld) [Mass/Vol] 131.0 pg/mL Normal <=900.0 [facility] Comment on above: Performed By: #### B SUPERVISOR PLATE FORMING ####[facility] Ftbfqcbkrw[address] [place], [place] [address]Dr. Nahed Yañez CARDIAC FRANCISCO 3-6on 3 CK [Catalytic activity/Vol] 17 U/L Critically low 26-192 The [facility] Comment on above: Performed By: #### C MREP ####[facility] Icvjazytsd2068 [place] [address]Dr. Nahed Yañez CK.MB [Mass/Vol] ng/mL Normal <=3.60 The [facility] Comment on above: Performed By: #### C MREP ####[facility] Idavjtgfir9984 [place] [address]Dr. Nahed Yañez HSTROP 25.1 pg/mL Normal 4.0-51.3 The [facility] Comment on above: Result Comment: CUT- OFF POINTS HAVE BEEN ESTABLISHED BASED ON THE FOURTH UNIVERSAL DEFINITIONS OF MYOCARDIALINFARCTION. THE UPPER REFERENCE LIMIT (URL) OF TROPONIN, DEFINED THE 99TH PERCENTILE OFcTnI DISTRIBUTION IN A REFERENCE POPULATION, HAS BEEN CONFIRMED THE DECISION THRESHOLDFOR [place] DIAGNOSIS. Performed By: #### C MREP ####[facility] Jfcpuxbifn[address] [place], [place] [address]Dr. Nahed Yañez CARDIAC FRANCISCO ADMITon 023 CK [Catalytic activity/Vol] 39 U/L Normal 26-192 The [facility] Comment on above: Performed By: #### ERICK Ordonez MP ####[facility] Utcubyrmfs[address] [place], [place] [address]Dr. Nhaed Yañez CK.MB [Mass/Vol] ng/mL Normal <=3.60 [facility] Comment on above: Performed By: #### Mery MULLER CMADM ####[facility] Rlgzblclmy[address] [place], [place] [address]Dr. Nahed Yañez HSTROP 24.4 pg/mL Normal 4.0-51.3 The [facility] Comment on above: Result Comment: CUT- OFF POINTS HAVE BEEN ESTABLISHED BASED ON THE FOURTH UNIVERSAL DEFINITIONS OF MYOCARDIALINFARCTION. THE UPPER REFERENCE LIMIT (URL) OF TROPONIN, DEFINED THE 99TH PERCENTILE OFcTnI DISTRIBUTION IN A REFERENCE POPULATION, HAS BEEN CONFIRMED THE DECISION THRESHOLDFOR [place] DIAGNOSIS. Performed By: #### Mery MULLER CMADM ####[facility] Gdzbdzbxtk9032 [place] [id number]. Nahed Yañez ANDRE 48 ng/mL Normal 9-82 [facility] Comment on above: Performed By: #### B MP, CMADM ####[facility] Snimvfehqy8552 [place] [id number]. Nahed Yañez CBC AUTO DIFFon 08-21-2022 BASO # 0.0 103/ul Normal 0.0-0.1 The [facility] Comment on above: Performed By: #### C BC ####[facility] Qvuftsqsel8269 [place] [id number]. Nahed Yañez Basophils/100 WBC (Bld) 0.2 % Normal 0.2-2.0 The [facility] Comment on above: Performed By: #### C BC ####[facility] Yyasjvvqlc[address] [place], [place] [address]Dr. Nahed Yañez EO # 0.3 103/ul Normal 0.0-0.7 [facility] Comment on above: Performed By: #### C BC ####[facility] Rjdsqngpva[address] [place], [place] [address]Dr. Nahed Yañez Eosinophils/100 WBC (Bld) 1.5 % Normal 0.9-7.0 [facility] Comment on above: Performed By: #### C BC ####[facility] Vwbdoemles7[address] [place], [place] [address]Dr. Nahed Yañez Erythrocyte distribution width (RBC) [Ratio] 15.0 % Normal 11.0-15.0 [facility] Comment on above: Performed By: #### C BC ####[facility] Zdhkvtbdod[address] [place], [place] [address]Dr. Nahed Yañez Hematocrit (Bld) [Volume fraction] 41.4 % Normal 36.0-48.0 [facility] Comment on above: Performed By: #### C BC ####[facility] Caodlszqbi[address] [place], [place] [address]Dr. Nahed Yañez Hemoglobin (Bld) [Mass/Vol] 13.5 g/dL Normal 12.0-16.0 [facility] Comment on above: Performed By: #### C BC ####[facility] Jzhkreypkc0216 [place] [id number]. Nahed Yañez IG # 0.18 10e3/ul Critically high 0.00-0.03 [facility] Comment on above: Performed By: #### C BC ####[facility] Oksxikvunq4851 [place] [phone]. Nahed Yañez IG % 1.0 % Critically high 0.0-0.5 [facility] Comment on above: Performed By: #### C BC ####[facility] Rhifszeujz6821 [place] [address]Dr. Nahed Yañez LYMPH # 2.5 103/ul Normal 1.2-3.8 [facility] Comment on above: Performed By: #### C BC ####[facility] Xlhgoyefnk8[address] [place], [place] [address]Dr. Rosemarieashley Yañez Lymphocytes/100 WBC (Bld) 14.0 % Critically low 20.5-60.0 [facility] Comment on above: Performed By: #### C BC ####[facility] Yvmtmxkmbx6937 [place] [address]Dr. Nahed Yañez MANUAL DIFF REQ NO Normal [facility] Comment on above: Performed By: #### C BC ####[facility] Dqaukcgdbh6705 [place] [address]Dr. Nahed Yañez MCH (RBC) [Entitic mass] 28.5 pg Normal 26.7-34.0 [facility] Comment on above: Performed By: #### C BC ####[facility] Eculxubosx[address] [place], [place] [address]Dr. Nahed Yañez MCHC (RBC) [Mass/Vol] 32.6 g/dL Normal 29.9-35.2 [facility] Comment on above: Performed By: #### C BC ####[facility] Xwtypifmoo[address] [place], [place] [address]Dr. Nahed Yañez MCV (RBC) [Entitic vol] 87.3 fL Normal 81.0-99.0 [facility] Comment on above: Performed By: #### C BC ####[facility] Ltkqikzzxu8273 [place] [id number]. Nahed Yañez MONO # 1.2 103/ul Critically high 0.3-0.8 [facility] Comment on above: Performed By: #### C BC ####[facility] Srwbeixkyj7249 [place] [phone]. Nahed Yañez Monocytes/100 WBC (Bld) 6.8 % Normal 1.7-12.0 [facility] Comment on above: Performed By: #### C BC ####[facility] Lkfghfrlvb1997 [place] [phone]. Nahed Yañez NEUT # 13.8 103/ul Critically high 1.4-6.5 [facility] Comment on above: Performed By: #### C BC ####[facility] Vgffrmjrsw7533 [place] [phone]. Nahed Yañez Neutrophils/100 WBC (Bld) 76.5 % Critically high 43.0-75.0 [facility] Comment on above: Performed By: #### C BC ####[facility] Ccsowaoddo2438 [place] [phone]. Nahed Yañez Platelet mean volume (Bld) [Entitic vol] 10.5 fL Normal 9.5-13.5 [facility] Comment on above: Performed By: #### C BC ####[facility] Prgdydflvf4858 [place] [phone]. Nahed Yañez PLT 319 103/ul Normal 150-450 [facility] Comment on above: Performed By: #### C BC ####[facility] Kicscezfab9601 [place] [phone]. Nahed Yañez RBC 4.74 106/ul Normal 4.20-5.40 [facility] Comment on above: Performed By: #### C BC ####[facility] Ksctasoaow7986 [place] [phone]. Nahed Yañez WBC 18.0 103/ul Critically high 4.0-11.0 [facility] Comment on above: Performed By: #### C BC ####[facility] Fmqxfkhjgm7124 [place], [place] [address]Ib. Nahed Yañez CULTURE BLOODon 08-21-2022 Microscopic examination of blood, culture Culture Observations: NO GROWTH AT 5 DAYS. Normal [facility] Comment on above: Performed By: #### B LDCX2 ####[facility] Fntphzxhad1706 [place], [place] [address]Se. Nahed Yañez Microscopic examination of blood, culture Culture Observations: NO GROWTH AT 5 DAYS. Normal [facility] Comment on above: Performed By: #### B LDCX1 ####[facility] Xmtvhtttdp9522 [place], [place] [address]Ie. Nahed Yañez Covid-19 PCR (CVDTBH)on 08-12 SARS-CoV-2 (COVID-19) RNA MIRNA+probe Ql (Unsp spec) Not detected Normal NOT DETECTED [facility] Comment on above: Result Comment: When [...] for this test is supported by the [place] of Health and Human Service's declaration that [...] Performed By: #### C VDTBH ####[facility] Hqziztsxos1295 [place] [phone]. Nahed Yañez LACTATE/LACTIC ACIDon 2022 Lactate [Moles/Vol] 1.1 mmol/L Normal 0.4-2.0 [facility] Comment on above: Performed By: #### L ACT ####[facility] Ejzodewflx5036 [place] [address]Dr. Nahed Yañez Lactate [Moles/Vol] 2.4 mmol/L Critically high 0.4-2.0 [facility] Comment on above: Performed By: #### L ACT ####[facility] Ikoubtuuxn4638 [place] [address]Dr. Nahed Yañez POINT OF CARE GLUCOSEon 08-12 Glucose [Mass/Vol] 453 mg/dL Critically high 74-106 [facility] Comment on above: Performed By: #### P OCGLUC ####[facility] Oirrwhuuyk[address] [place], [place] [address]Dr. Nahed Yañez Glucose [Mass/Vol] 358 mg/dL Critically high 74-106 [facility] Comment on above: Performed By: #### P OCGLUC ####[facility] Nbggphpgxa[address] [place], [place] [address]Dr. Nahed Yañez Glucose [Mass/Vol] 98 mg/dL Normal 74-106 [facility] Comment on above: Performed By: #### P OCGLUC ####[facility] Rmkcuyyjmv[address] [place], [place] [address]Dr. Nahed Yañez PROF CHEM 8 (BAS METB)on Anion gap [Moles/Vol] 14.7 mmol/L Normal [facility] Comment on above: Performed By: #### B MP, CMADM ####[facility] Limabuyglf[address] [place], [place] [address]Dr. Nahed Yañez Calcium [Mass/Vol] 9.6 mg/dL Normal 8.5-10.1 [facility] Comment on above: Performed By: #### B MP, CMADM ####[facility] Brupykmvnl[address] [place], [place] [address]Dr. Nahed Yañez Chloride [Moles/Vol] 95 mmol/L Critically low 98-107 [facility] Comment on above: Performed By: #### B MP, CMADM ####[facility] Cndfkzbvzf[address] [place], [place] [address]Dr. Nahed Yañez CO2 [Moles/Vol] 25.2 mmol/L Normal 21.0-32.0 [facility] Comment on above: Performed By: #### B RENZO, ERICK ####[facility] Dyqgcbtcyx0642 [place] [address]Dr. Nahed Yañez Creatinine [Mass/Vol] 1.15 mg/dL Critically high 0.55-1.02 [facility] Comment on above: Performed By: #### B RENZO, ERICK ####[facility] Evogfdwxrt325[address] [place], [place] [address]Dr. Nahed Yañez EGFR-AF VENEZUELAN 58 mL/min/1.73m2 Critically low >=60 [facility] Comment on above: Performed By: #### B RENZO, ERICK ####[facility] Mhmgvuiuzy[address] [place], [place] [address]Dr. Nahed Yañez EGFR-NON AF VENEZUELAN 48 mL/min/1.73m2 Critically low >=60 [facility] Comment on above: Performed By: #### ERICK Ordonez MP ####[facility] Tkfcxugoty[address] [place], [place] [address]Dr. Nahed Yañez Glucose [Mass/Vol] 191 mg/dL Critically high 74-106 [facility] Comment on above: Performed By: #### ERICK Ordonez MP ####[facility] Yngbsfeiij[address] [place], [place] [address]Dr. Nahed Yañez Potassium [Moles/Vol] 3.9 mmol/L Normal 3.5-5.1 [facility] Comment on above: Performed By: #### Mery MULLER, ERICK ####[facility] Hnpdoeozno[address] [place], [place] [address]Dr. Nahed Yañez Sodium [Moles/Vol] 131 mmol/L Critically low 136-145 [facility] Comment on above: Performed By: #### B ERICK MULLER ####[facility] Vdfdpqlshk[address] [place], [place] [address]Dr. Nahed Yañez Urea nitrogen [Mass/Vol] 15.0 mg/dL Normal 7.0-18.0 [facility] Comment on above: Performed By: #### ERICK Ordonez MP ####[facility] Ogwfjjxmwb4524 [place], [place] [address]Wa. Nahed Yañez Urea nitrogen/Creatinine [Mass ratio] 13.0 mg/mg Normal [facility] Comment on above: Performed By: #### B ERICK MULLER ####[facility] [address] [address]Dr. Nahed Yañez XR CHEST 2 Von 08-21-2022 XR CHEST 2 V Normal [facility] Coding Summary.on 08-11-2022 Coding Summary. CD:[id number] W w+PGhlYWQ+HL9ADHJrD72 brHZqaN6jT4JLMZxUIpsq FSXRRYiGVcZgenQzVO4pm XNjZXJu IC8+RQ3wCNZiEsfbiCReb 0K8zAQ9X18irx6eXHrjuE Q8KCTnZlGwvsrjv7dhyRq 6IDcuNmluOyBt YHDxsR89JDD4aT18Xm47u ENpmRBcw3rbqJb0HjXaKR WtRJI5wDusYFghd9XnTLT aQ41ftVAht8T7 BLFinDpwdPRyCnNttEZ5u H7nAGpcfoqjr4enekfdYs x1ut06sTZyr7W9xQB5N4I aybH6IAErmKWe JtfvoCFKvF4vfexld9apx cfaWqJpLYIqFAg9QMq6LI TrlTblQpPlJE79AMN6PLV qyrRbM2YiBNTr xGplMzZ6i5Z0Wm1KG4CBJ kvwR4JIOKMCZHulvMQ+PC 65ap35T5IgFsxeEbc0NTA vHFC5aGQ0mU6i EHWcDAjba1U7mQZ0C7Deo kMrbv9yf0maDRMgTPrpX9 5znSFzu5U3XLQpiNF0DDG olJxwDiMscF76 Oyc+OBPktJono9PhQnata 6knr4ykaDj1TebkSDOwhp MtyFbiUFG9a5ObMw6aEUL ijGI3hNZ5zT1e IiWgGgR0EYidW742RdVvc ECwDwpoE28bU0GuwJU+PH JoUzw3TCNtxUprMJ6dS4G hZGRpbmctbGVm iXwoOM2tXMEmyfxoWTTbo B1iZFYbU0o8NuMeByF2KT upI8QlVATjigvoFi56dL7 wLqReObW7DPhc M3VtkeS8ZUZpzSNzEOmyF PT1E16xu7C4HBSpAXZfLC J8gII3vY9qhRfnslsmxIW mdDsgdmVydGlj USnoPTxyB054PIQdzLzaX kNvZGluZyBEYXRlOiAgMD MvMzEvMjAyMzwvdGQ+PHR oXGY4rVpkQQPv oDAeBXhpYw4uhHolzDqhA F0pUESeskwwSCSanP0aWX CwrLGjlUmfTI8nKBFdytf uv716CkHtWUG6 BLObvAIqY7PpmO5fJiEsZ BKpYTAuP9FitZZpXHopG8 45VOluGoK8KNBsagBuL9F sLWFsaWduOiB0 z6E5Zl6Qs4EucjefU0Tox JLvYaZdPgdiFRs6G7NiBn wvdHI+CX04UYTdQP69NAa 5BOY4gBxeVUod SUNhL0GstA7lNoKdFUPhI GRkOyc+PHRhYmxlIHdpZH RoPScxMDAlJyBzdHlsZT0 hPc3sBJHuIICh kYultPCpRnUkw1ytLPTdJ UzbVC3vkRuzI8DxrZW7XM Veo6t5Ce52W57dW0KmbFG +EKPguJW2dUF7 mG2qMhGrDrO5EXveM529S sOljCSjGncfk2cmk5uxjZ w4HhM2WRDnodQkxAufWGT 3k7EpRp73A90q IHdpZHRoPSIxNSUiIHZhb Crcsw6xsJ0oNy4+PGNvbC J6wWF5uX9mNfHoWhP7GBy bM531MjEtwGPl Gumjo5daw4zhyAp0CzTyM VUbcnVosQjwQQW2k9MzHe 85V4YxoLnqa1JzWsz4me8 4wKCqg6T5pLW1 I4IeSFPbfljhuNByyPekU O0aOPVuaxiuSTJfqV1vHM XfQ6r6KjRhSrX9IBapZ8Z mmrW0LVVkrBEd GXVunPCIkA5zmckmu0rbj ebhBiTuLAOtAZw6KIg4XB RkyNohUzZiMYS5MxC7HSL 6aJOdwG5paPck acnpgD9hBvi+AMI8sQMtp CVHPE1vWnqqfEG+PHRkIH Q0cEgeRZwlGIFerX8tKPU jT3c9GyVuYzV7 YGvmA9YbchS4SCOmuHNtD HUgmZIEsD4ckynsu2jzcp smBwXaELUkETn7ZEp9YTE saWduOiBsZWZ0 UkU4IKA5nKPnkX0flCkil plaeS9bMyw+QmlydGggRG D0NZw6R7SaGzb5BZDtjAe cHH5gmYLgOCbw Ed0dnSgadIgwGO9eHRMll dvdo620WpQls6noMWBblW EsSMuaUMB1S98iu6D0NEP nUUOjAFD8fDP8 lT0lpAgttjicgZNprOvuf vPzlTwgTUpeVKbxH851MI BkgTvnHbAtLXx4I4YdQvr 3RHExlSwnKU8w tZAfNEvdVm8dkZwbgVeiJ S6kRLJjjgtto082HiIua9 uoKENncUYbJGxkXWI8B38 wv0T4XGOwNPQh VPY4lRJ8gK1bjMzvpejlp GVmdDsgdmVydGljYWwtYW cgE283JELrdMuaIiPxeJy 2J4HzCav4UGVe eAcyWP2umOQrQFzzGh2yj CfyvHhiQG6jCIHsxjuyx0 79EbQab2dsVUKcpKXmZSm yTUT1Q50db9J1 YPVxTSBfMGD7sLR8hI4re GlnbjogbGVmdDsgdmVydG dyWDidODndQ938UBRzdKt nPlBhdGllbnQg LWtaZFd3H6DdHnhncSN+P K46PXLzIE77jVGvrGPwb6 dduYc0PoOlVPPgNIO4pBw iAJdfx2XkFTIs F20dnOVvd7M7ZWQpfQjey XRnSrIxrTR0dO9kMTiknh sqb1zvysisAafti4libo9 6tR13F94jEGvq ZHRoPSIzMCUiIHZhbGlnb u4qzW4cMo3+WIGijHX9pO Z6rM5pDPQtUdS2OGjnT77 9InRvcCIvPjxj d0oqq6mlrKk2TvD9VZUid oQvpZznHYA2e9OtYf83E1 9sIHdpZHRoPSIyMCUiIHZ poXqbbu9gnR5f Ii8+EANiuNA8iOL2sK0rC hUoNaW6IQxoB793RsYkpG WjJmlnV09zW3PbuXY+PHR pJqu6DTXemIxm PW5goNEyOVnbWc9jTXW8Q lRtCaStKMtgL3ShFRPlpg niiiuhoVD8EJLuXDWwiX9 4Op0qiYbbEVBc eRBGqP4pnooxf2fbkwbqD bWfTGFcPYy4GXr3ZBDriT xsRtSlUCT9HrM3GAN6hKG zlF2jbHlumnzn gR4vH0MlEQCohgzpLp81y P2jEfJaHkZ0QUnpWrr+TU ODMT1HARKQNLNEVVU9U0H vDpt4BFZzcCur LX2dkWVhGGytPw9nkGggf ZcgWF2bINOzxdcpYVGdlD 8lRFZeqQQfiPsdFO1gTRK elmaom457UoLd JOT9AFQzfFRpW4ThqS9qT cBvLVXdORBbN8SeeEEiNC cwE653SQozMkR3CVOmwcN lE0NtKRYkyGtw KiB5i6M3Rl1wBH3cAW5nR XSbKE83WV13iNKqm9O5bB V2B6NmDEUnkqvzeaualQC 3YNBvZRJxrT22 yWGoHDkbBj8uv3O6r048T ZDiTFKqwD09Iz5qaFkpOF FiyYOTaW2lcbmcu2pvhwr gIzAwMDAwMDt0 TQp0YYRblJpnBlIaEDI7G kB5XHZ8oIOkcG9eqDnglv febB0aPby+NjEgWWVhcnM 4C5CgJpi7KUZl gYbbPQ6wlREyFRblZb0sd DbsxBiqVG6oFOCfvtihWT MnmJ7wLHNtkHWjrSihZT0 yTBPbopdyy625 AbQjOPW8GOPmiPKeT6Qky T7kGbLxROLtIRNdH4PbtH XdPOujS693ERmzSjN3WHL ppvFuV6CvZSPl gSskHuK4f3L0Qq1PHE6rc HG6D1LkEwt0GRCbaQkrUL 9shHArOEzjJv0buEmvqYa aNL1jZOZvqjtr KPJhdU4eXFMowOKuaFhhH V8oSELmsymfc411KuLnQK Y0TXKylINkK8ZvsS5oCvT oSMGhWPJcZ7At gUAmAMzqC576VErbIpU0W JEgpwAnC0DpBJTozXdoBy M0j3N2Kr6BuISqB4RfV4y 9C8YbKpsuxZW+ UR37TYSwAP99dHDolTUja 6ahrWi9UaFcBZNkNWK5kK uoDBolx8BfIEVqX26atSJ sy4R1SLCrpJhh bGUbIbYkxHD7bG1mFZtmn zeit0mhftwaJxkws4berp 00xN46R34qRQudFHToBEB zMCUiIHZhbGln ai6hkZ7uBq1+PPBooTV1p SM0iW6yOgBdCzF9CUzcO2 37LiOcpMDmPawkd8pvt5o glUn8RyIrIORz rcBwcLriYIR2y3BxUg69M 29sIHdpZHRoPSIyMCUiIH QtcVwzpa3waO1nCb8+PC9 uf7eqjv11aL38 dHI+TPYbBQB7zPpoSRznN ZWtdG7aRTfkZtT7JGAhIe PteT01iXSsAFtiGa2smFg udQgaMV3eCBMh wtvkd004OcYyj7ekBHMku HExQLplKTZ4H74rd6B9IH PuAUUeQKI2nIQ2eK5uxWn nbjogbGVmdDsg bvJmtVytMOzwXWdgV845B ZMbhKfsCmVezYRvG3rknd TMGV6eCffaxSJ+PHRkIHN 0eWxlPSdwYWRk iF1jOQXoZ8k8IdSwRqZ7K RqfC4UkokP8OYUfbJYuMI UyiYAFkK5uiaiba7dwsdc gIzAwMDAwMDt0 IYy2XNGnwVghPjBhWDJ2K nJ7FUU3rVVigO3kjHpwsi vkyP4jZrr+RklOOjwvdGQ +LGDrDJQ3nQwc ZNhfEVFlxR5dHRQpY3w9W qUcLlA3NIpbI4UjgzX2TW FnjCQeKEHeoAXMaB3kstq fg4dukpjxQjLp FTFdZXo5PKd4QTXzzXfrT kFaDNK5NcJ5BAJ3bLLxzJ 2giInieotzbG6pTul+TVJ OOjwvdGQ+PHRk ALV9hGmvEQigKEFxoE2wW NJhN1n1DlQgDdS1KKuaE8 MvnsZ5ISBfuTNxDRTdbNX IvO5batidt2by astuOoOlFQZnEPu8LUe9R TOnhVsdXpYzPBU3IzB8BH U6tCIrzP7jmJcqapeodI7 wOyc+ZTH7OJY0 DB27ES85J5WxFgybzNEix +PHRhYmxlIHdpZHRoPS mtNUAkRfWdcSepIL6kXi9 yZGVyLWNvbGxh cHNlOiBj (more content not included)... Normal [facility] Auto Diffon 08-09-2022 Basophils/100 WBC (Bld) 0.5 % Normal 0.0-2.0 [facility] Comment on above: Order Comment: Order Added by Discern Expert. Performed By: #### 2 834130, 2975403, 85054320, 5756922, 29855631, 60750956, 81190549 ####[facility] [address] [place] [address] Basophils/Leukocytes Auto (Bld) [Pure # fraction] 0.1 E9/L Normal 0.0-0.2 [facility] Comment on above: Order Comment: Order Added by Discern Expert. Performed By: #### 2 849795, 8445673, 21287323, 4650469, 91303001, 47254352, 01815929 ####[facility] [address] [place] [address] Eosinophils/100 WBC (Bld) 2.7 % Normal 0.0-8.0 [facility] Comment on above: Order Comment: Order Added by Discern Expert. Performed By: #### 2 470093, 8907458, 65583944, 6586757, 71305954, 70809091, 95656559 ####[facility] [address] [place] [address] Eosinophils/Leukocytes Auto (Bld) [Pure # fraction] 0.4 E9/L Normal 0.0-0.5 [facility] Comment on above: Order Comment: Order Added by Discern Expert. Performed By: #### 2 296887, 0700745, 59059871, 5763071, 46266697, 08495190, 06087481 ####[address] [place] [address] Lymphocytes/100 WBC (Bld) 12.8 % Low 14.0-50.0 [facility] Comment on above: Order Comment: Order Added by Discern Expert. Performed By: #### 2 359512, 1242283, 95448333, 1709963, 20489462, 30366926, 18918545 ####[address] [place] [address] Lymphocytes/Leukocytes Auto (Bld) [Pure # fraction] 2.1 E9/L Normal 1.0-4.0 [facility] Comment on above: Order Comment: Order Added by Discern Expert. Performed By: #### 2 659603, 5091348, 22306053, 9466371, 55761779, 59857376, 15676053 ####[address] [place] [address] Monocytes/100 WBC (Bld) 6.4 % Normal 4.0-14.0 [facility] Comment on above: Order Comment: Order Added by Discern Expert. Performed By: #### 2 338291, 5173217, 53720031, 1803964, 83045714, 99581532, 97440526 ####[address] [place] [address] Monocytes/Leukocytes Auto (Bld) [Pure # fraction] 1.0 E9/L Normal 0.2-1.0 [facility] Comment on above: Order Comment: Order Added by Discern Expert. Performed By: #### 2 100545, 1395966, 23564798, 9758657, 65936212, 42367564, 29252976 ####[facility] [address] [place] [address] Neutrophils/100 WBC (Bld) 77.6 % High 36.0-75.0 [facility] Comment on above: Order Comment: Order Added by Discern Expert. Performed By: #### 2 617418, 0771461, 22459478, 6186691, 65284344, 97877853, 07341964 ####[facility] [address] [place] [address] Neutrophils/Leukocytes Auto (Bld) [Pure # fraction] 12.6 E9/L High 2.0-7.5 [facility] Comment on above: Order Comment: Order Added by Discern Expert. Performed By: #### 2 174873, 2064863, 56006634, 2555135, 92382623, 99410692, 10922075 ####[facility] [address] [place] [address] BMPon 08-09-2022 Creatinine [Mass/Vol] 1.1 mg/dL Normal 0.5-1.3 [facility] Comment on above: Performed By: #### 2 787307, 1388472, 02855483, 4168426, 19466967, 05262101, 23446399 ####[facility] [address] [place] [address] Urea nitrogen [Mass/Vol] 18 mg/dL Normal 5-21 [facility] Comment on above: Performed By: #### 2 133552, 2839706, 04016471, 5599998, 32430362, 93195929, 98959553 ####[facility] [address] [place] [address] Urea nitrogen/Creatinine [Mass ratio] 16 No Units Normal 10-20 [facility] Comment on above: Performed By: #### 2 161808, 6908264, 59752736, 2382173, 02441360, 49088872, 12889697 ####[facility] [address] [place] [address] Anion gap [Moles/Vol] 13 mmol/L Normal 6-16 [facility] Comment on above: Performed By: #### 2 363650, 1203447, 32737760, 8521845, 85764186, 63360232, 16584321 ####[facility] [address] [place] [address] Calcium [Mass/Vol] 8.8 mg/dL Low 8.9-11.1 [facility] Comment on above: Performed By: #### 2 740244, 6537745, 34565767, 5791982, 45530769, 21721062, 90970734 ####[facility] [address] [place] [address] Chloride [Moles/Vol] 101 mmol/L Normal 101-111 [facility] Comment on above: Performed By: #### 2 147589, 6260550, 32817321, 3044070, 06819015, 38737376, 98035411 ####[facility] [address] [place] [address] CO2 [Moles/Vol] 27 mmol/L Normal 21-31 [facility] Comment on above: Performed By: #### 2 331848, 1431783, 25578202, 4432031, 36790920, 69975757, 78095832 ####[facility] [address] [place] [address] Glucose [Mass/Vol] 121 mg/dL Normal 55-199 [facility] Comment on above: Result Comment: If t his glucose result represents a fasting glucose, interpretation should refer to the following reference range: 55-99 mg/dL Performed By: #### 2 143060, 5066886, 05560732, 3839214, 64051358, 61151661, 90619543 ####[facility] [address] [place] [address] Potassium [Moles/Vol] 3.9 mmol/L Normal 3.5-5.3 [facility] Comment on above: Performed By: #### 2 794434, 4687074, 88874853, 0409959, 39696140, 76766963, 43612837 ####[facility] [address] [place] [address] Sodium [Moles/Vol] 137 mmol/L Normal 135-145 [facility] Comment on above: Performed By: #### 2 754481, 1638826, 81339397, 5038726, 72221084, 80500453, 42209624 ####[facility] [address] [place] [address] BNPon 08-09-2022 Int Ctr BNP Pass Normal [facility] Comment on above: Performed By: #### 2 632451, 7545771, 59353559, 1793187, 07464828, 12771133, 15217481 ####[facility] [address] [place] [address] Natriuretic peptide B (Bld) [Mass/Vol] 19 pg/mL Normal 5-80 [facility] Comment on above: Performed By: #### 2 352544, 7614199, 71083830, 5959846, 26765735, 37033479, 91344666 ####[facility] [address] [place] [address] Blood Gas Art, with Lytes, G alex, [place] 08-09-2022 a/A Ratio Art 75.90 % Normal >=0.[address] [facility] Comment on above: Performed By: #### 4 [id number] ####[facility] [address] [place] [address] AaDO2 Art 21.9 mmHg High 5.0-15.0 [facility] Comment on above: Performed By: #### 4 51245629 ####[facility] [address] [place] [address] Allens Test Not Applicable Normal [facility] Comment on above: Performed By: #### 4 77028842 ####[facility] [address] [place] [address] Base Excess Arterial 3.1 mmol/L Normal >=2.8 [facility] Comment on above: Performed By: #### 4 66701331 ####[facility] [address] [place] [address] cCa2+ Art 4.86 mg/dL Normal 4.40-5.30 [facility] Comment on above: Performed By: #### 4 37295240 ####[address] [place] [address] cCl- Art 105.0 mmol/L Normal 101.0-111.[address] [facility] Comment on above: Performed By: #### 4 [id number] ####[address] [address] cGlu Art 117 mg/dL High 55-99 [facility] Comment on above: Performed By: #### 4 91477954 ####[address] [address] cK+ Art 4.0 mmol/L Normal 3.5-5.3 [facility] Comment on above: Performed By: #### 4 63275025 ####[address] [place] [address] cLac Art 1.4 mmol/L Normal .5-2.2 [facility] Comment on above: Performed By: #### 4 54919604 ####[address] [place] [address] mixer tender+ Art 142.0 mmol/L Normal 135.0-145.[address] [facility] Comment on above: Performed By: #### 4 05750191 ####[address] [address] Drawn by [employer] Invalid Interpretation Code [facility] Comment on above: Performed By: #### 4 [id number] ####[address] [address] FCOHb Art 1.0 % Low 1.5-4.9 [facility] Comment on above: Result Comment: Refe rence range Nonsmoker <1.5% Smoker <5.0% Heavy Smoker <9.0% Performed By: #### 4 [id number] ####[facility] [address] [place] [address] FIO2 BG 21 Invalid Interpretation Code [facility] Comment on above: Performed By: #### 4 [id number] ####[address] [place] [address] FMetHb Art 0.5 % Normal 0.0-1.9 [facility] Comment on above: Performed By: #### 4 87941558 ####[address] [place] [address] FO2Hb Art 92.6 % Normal 92.0-100.0 [facility] Comment on above: Performed By: #### 4 39736796 ####[address] [address] HCO3 (Bld) [Moles/Vol] 27.1 mmol/L High 22.0-26.0 [facility] Comment on above: Performed By: #### 4 [id number] ####[address] [address] Hemoglobin (Bld) [Mass/Vol] 12.5 g/dL Normal 12.0-16.0 [facility] Comment on above: Performed By: #### 4 37384295 ####[address] [place] [address] Oxygen saturation in Blood 94.1 % Low 95.0-100.0 [facility] Comment on above: Performed By: #### 4 78712061 ####[address] [place] [address] P CO2 Arterial 48.9 mmHg High 35.0-45.0 [facility] Comment on above: Performed By: #### 4 [id number] ####[address] [place] [address] P O2 Arterial 68.8 mmHg Low 80.0-100.[address] [facility] Comment on above: Performed By: #### 4 20190743 ####[address] pH Arterial 7.383 Normal 7.350-7.450 [facility] Comment on above: Performed By: #### 4 07562609 ####[address] Sample Site R Brachial Normal [facility] Comment on above: Performed By: #### 4 [id number] ####[place] [address] Sample Type Arterial Draw Normal [facility] Comment on above: Performed By: #### 4 [id number] ####[address] CBC w/ Auto Diffon 3 Erythrocyte distribution width (RBC) [Ratio] 15.4 % High 10.9-14.2 [facility] Comment on above: Performed By: #### 2 818489, 0120202, 82695414, 4595590, 73585248, 44415568, 92763797 ####[address] [address] Hematocrit (Bld) [Volume fraction] 36.9 % Normal 34.0-46.0 [facility] Comment on above: Performed By: #### 2 103977, 6717839, 09904052, 8639397, 94488099, 88082848, 13727876 ####[facility] [address] [place] [address] Hemoglobin (Bld) [Mass/Vol] 11.8 g/dL Low 12.0-16.0 [facility] Comment on above: Performed By: #### 2 932280, 8354948, 98607040, 5092471, 99448643, 81927902, 89415476 ####[facility] [address] [place] [address] MCH (RBC) [Entitic mass] 28.0 pg Normal 27.0-34.0 [facility] Comment on above: Performed By: #### 2 505749, 6717495, 76272685, 2087093, 75464766, 49087899, 60331034 ####[address] [address] MCHC (RBC) [Mass/Vol] 32.0 g/dL Normal 31.4-36.0 [facility] Comment on above: Performed By: #### 2 089969, 9217462, 46529420, 3435315, 09963731, 76517940, 75189732 ####[address] [address] MCV (RBC) [Entitic vol] 87.6 fL Normal 80.0-100.0 [facility] Comment on above: Performed By: #### 2 853083, 9311023, 86780119, 4883488, 80521245, 82959805, 97971020 ####[address] [address] Platelet mean volume (Bld) [Entitic vol] 8.4 fL Normal 6.4-10.8 [facility] Comment on above: Performed By: #### 2 309269, 6212033, 32023550, 0153472, 30672459, 00878577, 48127123 ####[address] [address] Platelets (Bld) [#/Vol] 238.0 E9/L Normal 150.0-500.0 [facility] Comment on above: Performed By: #### 2 644106, 9902496, 85034280, 2010493, 17558716, 60220008, 36172848 ####[address] [address] RBC (Bld) [#/Vol] 4.2 E12/L Low 4.3-5.9 [facility] Comment on above: Performed By: #### 2 203787, 0637926, 70113533, 8401481, 85378108, 46095622, 37282978 ####[facility] [address] [place] [address] WBC corrected for nucl RBC Auto (Bld) [#/Vol] 16.3 E9/L High 4.0-11.0 [facility] Comment on above: Result Comment: Slid e reviewed by LW. Performed By: #### 2 279241, 6574352, 91720546, 8274353, 36476125, 64353864, 65643912 ####[facility] [address] [place] [address] CHEMISTRYOrdered By: SYSTEM SYSTEM on 08-09-2022 Troponin I.cardiac [Mass/Vol] 7.00 pg/mL Low 10.10 - 27.10 pg/mL FT Remisol Anion gap [Moles/Vol] 13 mmol/L Normal 6 - 16 mEq/L F [facility] Remisol Calcium [Mass/Vol] 8.8 mg/dL Low 8.9 [...] 50 mL/min/1.73 m2 Low >=59mL/min/1 .73 m2 [facility] Chem S Glucose [Mass/Vol] 121 mg/dL Normal 55 - 199 mg/dL FT Remisol Potassium [Moles/Vol] 3.9 mmol/L Normal 3.5 - 5.3 mmol/L [facility] Remisol Sodium [Moles/Vol] 137 mmol/L Normal 135 - 145 mmol/L [facility] Remisol Troponin I.cardiac [Mass/Vol] 4.00 pg/mL Low 10.10 - 27.10 pg/mL [facility] Remisol Urea nitrogen [Mass/Vol] 18 mg/dL Normal 5 - 21 mg/dL [facility] Remisol Urea nitrogen/Creatinine [Mass ratio] 16 mg/mg Normal 10 - 20 [facility] Remisol CHEMISTRYOrdered By: Evelyn Mercado tter on 08-09-2022 Natriuretic peptide B (Bld) [Mass/Vol] 19 pg/mL Normal 5 - 80 pg/mL [facility] HemeManSS COAGULATIONOrdered By: Sagar Castorena on 08-09-2022 aPTT Coag (PPP) [Time] 31.4 s Normal 25.1 - 36.5 second(s) [facility] Auto Coag INR Coag (PPP) [Relative time] 0.9 {INR} Invalid Interpretation Code [facility] Auto Coag PT Coag (PPP) [Time] 10.3 s Normal 9.4 - 1 2.5 second(s) [facility] Auto Coag CTA Cheston 08-09-2022 CTA Chest [...] 370 Contrast amount in ml's: 73 Normal [facility] Discharge Instructionson Discharge Instructions [id number]# 1.00CD:127 Normal [facility] ED Clinical Summaryon 2022 ED Clinical Summary [place] [id number] ED Clinical Summary Person Information Name: VIVIAN VANN [facility] Age: 62 Years : 1960 Sex: Female Language: Ecuadorean PCP: Екатерина Robert MD Marital Status: Visit [...] 08/09/2022 18:01:49 08/09/2022 18:01:49 08/09/2022 18:01:49 ADDRESS: [address] [id number] PHYS DOC NOTES: MEDICAL INFORMATION: Prescriptions Given: [facility], [address] [place], [place] [id number], [phone] brompheniramine/dextr omethorphan/PSE (Bromfed DM oral syrup) 5 [...] Follow up: With: Address: When: Екатерина Robert [address] [place] [address], [facility] [place] [id number] Business (1) In 3 days 08/12/2022 Comments: Call the office of your primary care doctor to arrange for follow-up within the above-stated timeframe. Follow-up with your primary care doctor about this ED visit. You should review your labs, imaging, and diagnoses from this ED visit with your primary care physician. If y (more content not included)... Normal [facility] ED Note-Physicianon 08-10-19 23 ED Note-Physician Basic Information Time Seen: Clinton [...] has had 2 admissions to [facility] over the last few weeks for pneumonia/COPD exacerbation. Patient is currently on amoxicillin at home, feels that her symptoms are not improving but are in fact worsening. Patient endorses fevers and chills, myalgias. Patient reports her symptoms had not improved much on her last discharge from [place], and worsening since that time. Patient is [...] and Complexity of Problems Differential Diagnosis: [] [facility] Data External documents reviewed: [] My [...] for co (more content not included)... Normal [facility] Comment on above: Result Comment: Elec [...] these instructions at home: Medicines ? Take pksh-sso-zjnjgkj and prescription medicines (inhaled or pills) only [...] you e (more content not included)... Normal [facility] ED Patient Summaryon 023 ED Patient Summary [address] [address] Patient Discharge Instructions Person Information Name: VIVIAN VANN Age: 62 Years Arrival Date: 08/09/2022 13:09:07 Discharge Diagnosis: COPD exacerbation Primary Care Physician: Екатерина Robert MD Provider Information Primary Provider: Arsenio Martin DO [employer] Tech:Clinton Lucero PA-C The exam and treatment you received in the Emergency Department were for an urgent problem and are not intended as complete care. It is important that you follow up with a doctor, nurse practitioner, or physician?s office support assistant for ongoing care. If your symptoms [...] Follow-up Instructions: With: Address: When: Екатерина Robert [address] [place] [address], [address] [place] [id number] [facility] (1) In 3 days 08/12/2022 Comments: Call [...] opioids can be used to help relieve qlxzwess-yl-auvikw pain and are often prescribed following a [...] Safely disp (more content not included)... Normal [facility] EMS Documentationon 08-10-19 23 EMS Documentation Please click on link to see report [id number] CiX5+prnDQolQUJDcGRmI YIlFiE0OGvnNpIwQX4puk 9BULgOI4WsSRKuHJc6Hi8 I XGjiGHg0FGUkTW4JE6yaE Td4TtY5Jd9GkW1eGUCjqa EcMTNXZ95fFccsLmXcVBn zLIXhIxq8SgTT Ye6tNOCgYVQwIFKcNLAoI CAgICAgICAgICAgICAgIC AgICAgICAgICAgICAgICA gICAgICAgICAg ICAgICAgICAgICAgICAgI CAgICAgDQplbmRvYmoNCg 0GuSXoSf1VHgVfLzZYIiB wMDAwMDAwMzIg PJIcBDJxjb9YAFCwRAJyO QN9FHKeOGUkJQNfRHgoCE GyWEEvEDe6NGMuQGLgQE4 NCjAwMDAwMDE3 RFHcMTRwSOUkxw0ZTYFcY DAwMTkzNCAwMDAwMCBuDQ waUHJiBHLqUTo6JNWjTAV lEW2EGpSyHAMn GQTxXjCuHVSeNNGhxe9TC DAwMDAwMjMxNSAwMDAwMC FhWYbhCVKtEDChGin1OIV uLMCoVU7HQaEw LPGyVDF5AVgtGZChSNKtv k1CERBjKHGlUuonKVIaJX AwMCBuDQowMDAwMDAzMDY fNFElYTIfWM8W VfUoHWRdESQ5CXHyJFUbI ATead4QKGBpYDHdWwNhTj AwMDAwMCBuDQowMDAwMDA kWRI9QNJvLEWg BC3WRxTgZRFoYDEdGSLoU DCcQCTirb8ENWDuRFRyOJ W8YyNcTXAfGHGnQZbjYDC bPBY3FrH4JGIh JAZxQL3SOfUfGOWrMBD3U GSnMGZhVOMxrx3UPQWhAG XbJDN7HXExGXRdUAXnHFp qGJPhHLQ4DTS6 EUCgDKFxQZ2CLeBkAZKkR KZ5YXmhQGHkHXWpcz0VPS AwMDAwOTMwMCAwMDAwMCB uDQowMDAwMDQ5 SAlsKXOySZTuXE2RAcMfF UWxSRM0DDHeLIVvQWSmbx 8YzBMxgLlcwv7RIKfHS1r LHWm9MEWNURS6 XpN4K8P9DdD9GUfDQPeiA DP1YDSYIjS7UZP+CjxGRj BpZ2IDUEDICNAwYomhJMU QRXJ1FUtbTSi1 TWXuCF5pYx0ZahN4QKR5G IsaKFhyKg6txURuKfQcSS PUU4UmxaBjJPgTW0GpcEL oWFYyO0AQMAO8 Dd53EegqbPeIZZJ9BXEBH ZbmEG8LHwzKUvDdJNeoNw 46E1RNq3V0DvMaT9KSoPt SeoYMUYdxO0uH mSC6s1mbtNeLjGLRoNgjH GdJcndPalFSQUlqUHNXaE 10gigKC9MdKWb2A1MJSw1 IFNmyIeTudU6E lXimDIC9gH2rIMIGAFrFM slyFW9KRFNGDGg0HCf+Pi AgICAgICAgICAgICAgICA gICAgICAgICAg ICAgICAgICAgICAgICAgI CAgICAgICAgICAgICAgIC AgICAgICAgICAgICAgICA gICAgICAgICAg ICAgICAgICAgICAgICAgI CAgICAgICAgICAgICAgIC AgICAgICAgICAgICAgICA gICAgICAgICAg ICAgICAgICAgICAgICAgI CAgICAgICAgICAgICAgIC AgICAgICAgICAgICAgICA gICAgICAgICAg ICAgICAgICAgICAgICAgI CAgICAgICAgICAgICAgIC AgICAgICAgICAgICAgICA gICAgICAgICAg ICAgICAgICAgICAgICAgI CAgICAgICAgICAgICAgIC AgICAgICAgICAgICAgICA gICAgICAgICAg ICAgICAgICAgICAgICAgI CAgICAgICAgICAgICAgIC AgICAgICAgICAgICAgICA gICAgICAgICAg ICAgICAgICAgICAgICAgI CAgICAgICAgICAgICAgIC AgICAgICAgICAgICAgICA gICAgICAgICAg ML8Jz1JdmiI8llSzQNtaU BmpTYAZVi8XSSgcUiRcXC 2guw5MQEeLD78jrUMpBEM hIDIxIDAgUgov Y8ErruGvoCyfckIbSbMaR XRVPy5GwDXDHYfhT9K9uS opWUMqRRvlOIFZYs0DXJd uXG6zRPCqORZg Bt1iWIscNMWpSUOqWqQrC SZYCi4ZcAFcRB0IVENmrH 9nCj4+DQplbmRvYmoNCg0 KMjQgMCBvYmoN Aql4If3EyBn8DNAvX3WpU DNfIZHky5OdXx2PGA8ruC hfJOG7Fr1YTMr4Dv5+DQp saWVeXP1CUzyq U6UdWHNuRPSpNBSmMUrRr XCgAIUpQLYQVIyLgXHaDQ jzpTYDMsAQZzMCEmJQzMC eYzD8ICrPX0H5 PLyEJdAiq9H1STeTGHXOF vDyAKwCyPiI8iIBuOeUmi W03PO5zIiKHSXwVBJO0ZR dmFaP8MdVQa5K 1N6PUR9lx4BgBWHwHJutj gQdXmtGZx6HImViLHZrLi sSAwz6Ac0Kg721IU23gdD bNDIgMCBSXQov THUerNZCi1xxVzMdSFS1R RNcIhlrPPvfQJZkXY36EL ZbMIPeKnxjVcQyl2JtG0T dHMf5Bv1CZ8Cz UHU0CRw0Un8WXCLaWeUaC sDiITQMGc5TId9FX2F0bM FoO1AjB9YOBc9FLkFuEP3 aju9JEJwnBgGq EL7oci6KPOhLK5ONz0meR rHyFAS1KETcWjrwGZoyEw vokWOeHY0JpAT3CJQqF00 fYSdiGMDiJ9In MPz2Wt3PGSZhiWJbPZNkQ IgUU3rCJjpjG9ReXIoWS9 baZiS2ZXUkYXGeZhs+Pgo +WehjF7JzdCyj BGEyOa4vrOxuOVztOKLiL K4rfdCqpDa+Vx7Cp3UeCA GqWNe7mQHI3HGy5CNcLMI fHLO8TJDndhMY JDph5JdAkBZuHyWllFToI 2thJZSt80eLJYUhCznPz0 rtFvRf0QyEAM+QY6BKqoS wEmBwkp7TAYlu quCpwGJiKL9GIhLfZE8lz s5SBNvjClYmXV1gjz9LED tZI4FFMX6Ox9SeCBqNP3I HAXHXT0pTUBRH Z8vPMVDDJ9nPCEMBR74NJ JZDC4ISTUZqeEBOR3CjOE AMDw8ZObChMT6yxm5RABr gSWEsQO6efx7F WFdMX7VKZH9Yt4MpTUbVS 3HlZUXNSy3XKzOuBZ5zke 7UXDrxWVGhCW4lnl7CVQf VI5KMMI8Hw7If ZYxOI4LCFLKJD5qZHKVHM 4mYYXWIB9rEDWXZK79FYR ATP8DLAPSqmSXLD1NqRRZ ONg3RDdJrEL3k yt0PCLiaCUKfAE2pie7QF AxAL3Eam6RKi133BU8XJv zRWP8gN505mfbnxf4gj8C TLUJvbGRNVAov CGWpS3ZzNHWstKOynuVqP JxsLLBoVBPuQq8IhgQhSS luZyAvSWRlbnRpdHktSAo qT6CwsYzjMRYy FIlfXZENL3AxIL7tI65nB RLeYxFaKPIDT1I0iUOcZ5 HsvzHWWu3DPqXmSK5ajs4 LWIvsLSJcCR8b sv3SRYaXO8Fke1GXw185E S9JCntHBM1oR999nqwqlt 5ry5IYLLVulAIFCGzjA1p MB7hjiXQpQO9b ldF1YPtnC9JfSQVjytmfB CfmZI79gGZ0HUniLkVstZ P9lpknJTKfj1OoWCelY4T wcGxlbWVudCAw Cj4+Pp1RDNGOo9zGJC3ti WRsJXQfajBisLgWY0UOWO MFI0OabvUJPISbngoujB7 yIDMyIDAgUgov Z2LvnRsdGHBvI8oIBx4qk ET5kUQnEs8GkTNeVK2Cb8 52Pm6ZWRniIGquCCLeBB3 rJSq3Tw5REm7Y KvXgDI3ljj5AFKroEsSfF A6oih9VTHrLL7FkA3FerD K5MgPyMCY3CXBWP4RmmMg zsVmqjQQ6UAAz Tzf8QEmSI7Fnu2GqotFoV yPnUfU3Aef0Kp7MwUNhiu WmGEkpYj9isQZLn3hiEm9 xJDQjSAw9ULKl BEmkVC42CTzwSkW0OYDrW mFaIWHvKIWbUH3qNNX4XI 6NM9QavbMRaVwlStV5DJV zDPAVY7XbfpHB MF8mLH5AOtjXTL8vW165n icroo3nl5HRIOGbfSLTOP acAXEluEdzEE7ydVFdJJk qJ3GncKOyEmVe LBqwEHmQM2D9wBBvX7Ozo zFQFJTgxjlmcK8cVh4+DQ rkdkZqWmiDMc7SGaZjNXE xQsnHOeo1Ih7O xSe7EZXpN1FjDTJeWKAbp 3XzLd9UAE5nbOraLmV8Ku 4+EQiezTJqRG5TParnIDQ LiaEsBRz8A3uJ KxUSYRqCDFgcxxTdR2LtC 9x4kBxRpCog4P3xjyVHmo qdS0hxv35S6S5+yQhz8ZN OaiWPo9N2s4c8 fSF9AYtnKAl3AaxpXc8p8 BxLoridpwBDY/uRlSXnyV nIDhJYkUMU7alaJULwTVw rk2u9vXoF03xf vzCADVywquIa+oj59dg3c yIseYbj2Ex4YN7YfDYzn0 kLHqZTlbIzppm6Zuauq9A RMSrOl3WgDPWe /0IvTy460mD7nY7dixUEY Ek9cRJPSjKYcSlv3g0dCf VoCM8VkF6cWzTX8j5ItaF Rg9a88vAYV9Re RvIayawgcodHIYmkChnJi xckc/KtCP3kg6IaGXP+y+ iIfRXvMisb2OifLd6TvoY Z15jGGJfY06/A zE2YGp9qqxfbUt4AAH5jv 3RyZWFtDQplbmRvYmoNCg 3ATvCvISAvEjcLSym0Bo1 XQPFyDa3gtXBj MhfBIVlHB0IgrCDpLAKTY JhDX22OVc8DEIPbFB0jNF 35Sx9mhWZrRrC5WQTaNk4 GA0DfT58imS7o DC9ALNJtyEs4bR6EUu8Ja IM8hMJxBY4FpZTxYTmmAM 2Snffdd4NdYYV8 (more content not included)... Normal [facility] FT Blood GasesOrdered By: Ra raciel [...] - 2.2 mmol/L FT Resp Auto SS mixer tender+ Art 142.0 mmol/L Normal 135.0 - 145.0 mmol/L FT Resp Auto SS Drawn by RLG Invalid Interpretation Code FT Resp Auto SS FCOHb Art 1.0 % Low 1.5 - 4.9 % [facility] Resp Auto SS FIO2 BG 21 Invalid Interpretation Code [facility] Resp Auto SS FMetHb Art 0.5 % [...] 68.8 mm[Hg] Low 80.0 - 100.0 mmHg FT Resp Auto SS pH Arterial 7.383 Normal 7.350 - 7.450 [facility] Resp Auto SS Sample Site R Brachial (08/09/22 2:03 PM) Normal FT Resp Auto SS Sample Type Arterial Draw (08/09/22 2:03 PM) Normal [facility] Resp Auto SS HEMATOLOGYOrdered By: SYSTEM SYSTEM [...] 32.0 g/dL Normal 31.4 - 36.0 gm/dL [facility] HemeAutoSS MCV (RBC) [Entitic vol] 87.6 fL [...] Coag (PPP) [Time] 31.4 second(s) Normal 25.1-36.5 [facility] Comment on above: Result Comment: Para [...] the same coagulation reagent and instrumentation as [facility]. Currently there are no coagulation studies available worldwide for children to 14 days, and no normal ranges. Heparin therapeutic range (represented by Anti-Factor Xa activity of 0.2 - 0.4 U/mL) corresponds to PTT of 56.6 - 109.0 sec. Performed By: #### 2 [id number], 2417650, [id number], 5853679, 84037727, [id number], [id number] ####[facility] [address] [place] [address] INR Coag (PPP) [Relative time] 0.9 {INR} Invalid Interpretation Code [facility] Comment on above: Result Comment: INR results are specifically intended to assess patients stabilized on long-term Anticoagulation therapy suggested INR?s ?Less Intensive Anticoagulation? 2.0 ? 3.0 Conventional Range 3.0 ? 4.5 Performed By: #### 2 826005, 1349367, 50395566, 2975609, 67051416, 48416162, [id number] ####[facility] [address] [place] [address] PT Coag (PPP) [Time] 10.3 second(s) Normal 9.4-12.5 [facility] Comment on above: Result Comment: 15 [...] the same coagulation reagent and instrumentation as [facility]. Currently there are no coagulation studies available worldwide for children to 14 days, and no normal ranges. Performed By: #### 2 710487, 8475577, 22275074, 1956664, 30370234, 53763564, [id number] ####[facility] [address] [place] [address] Pre-Arrival Noteon Pre-Arrival Note Pre-Arrival Summary Name: , Current Date: 08/09/2022 13:09:29 EDT Gender: Female Date of : Age: 62 Pre-Arrival Type: EMS ETA: 08/09/2022 13:33:00 EDT Primary Care Physician: Presenting Problem: sob Pre-Arrival User: John Martin Referring Source: Location: PA Completion Date/Time: 08/09/2022 13:03:00 [facility] Emergency Department Pre-Hospital Report Form Vital Signs: Pre-Hospital Report: Treatment in Route: Response to Treatment: Misc. Issues: Normal [facility] Troponin 0 Hr.on 08-09-2022 Troponin I.cardiac [Mass/Vol] 4.00 pg/mL Low 10.10-27.10 [facility] Comment on above: Result Comment: The 95% CI (Confidence Interval) PPV (Positive Predictive Value) for myocardial infarction in females is 38 pg/mL, in males 51 pg/mL. The results should be used in conjunction with clinical conditions of myocardial infarction. (Access High Sensitivity Troponin I Instructions For Use, [employer] ([employer]: [place]), December 2017) Performed By: #### 2 [id number], 7082425, 63185779, 3672929, 18555472, 88446376, 88049489 ####[facility] [address] [place] [address] Troponin 3 Hr.on 08-09-2022 Troponin I.cardiac [Mass/Vol] 7.00 pg/mL Low 10.10-27.10 [facility] Comment on above: Result Comment: The 95% CI (Confidence Interval) PPV (Positive Predictive Value) for myocardial infarction in females is 38 pg/mL, in males 51 pg/mL. The results should be used in conjunction with clinical conditions of myocardial infarction. (Access High Sensitivity Troponin I Instructions For Use, [employer] ([employer]: [place]), December 2017) Performed By: #### 1 [id number] ####[id number] [place] [address] XR Chest Single Viewon 08-09 XR Chest [...] mGy = na DAP = na Normal [facility] eGFRon 08-09-2022 GFR/1.73 sq M.predicted among blacks MDRD (S/P/Bld) [Vol rate/Area] mL/min/{1.73_m2} Normal >=59 [facility] Comment on above: Order Comment: Order added by Discern Expert. Result Comment: eGFR is race adjusted. AA=. Performed By: #### 2 576045, 1656108, 89173827, 6099826, 83747523, 23717678, [id number] ####[facility] [address] [place] [address] GFR/1.73 sq M.predicted among non-blacks MDRD (S/P/Bld) [Vol rate/Area] 50 mL/min/1.73 m2 Low >=59 [facility] Comment on above: Order Comment: Order added by Discern Expert. Result Comment: Sfdc Consultant valeria kidney disease could be indicated at eGFR's of less than 60 mL/min/1.73m2. Kidney failure is indicated at less than 15 mL/min/1.73m2. Performed By: #### 2 207665, 0324709, 06778855, 9381997, 46799948, 51610853, 25028180 ####[facility] [address] [place] [address] CBC W MANUAL DIFFon 08-02-19 23 ATYPICAL LYMPH # Normal [facility] Comment on above: Performed By: #### C ROSARIO ####[facility] [address] [place] [id number]. Nahed Yañez ATYPICAL LYMPH % Normal [facility] Comment on above: Performed By: #### C BCMAN ####[facility] [address] [place] [id number]. Yiashley Yañez BAND # 0.9 103/ul Critically high 0.0-0.3 [facility] Comment on above: Performed By: #### C BCMAN ####[facility] [address] [place] [address]Dr. Yilan Yañez BAND % 5 % Normal 0-5 [facility] Comment on above: Performed By: #### C BCMAN ####[facility] [address] [place], [place] [address]Dr. Nahed Yañez BASOM # 0.00 103/ul Normal 0.00-0.10 [facility] Comment on above: Performed By: #### C BCISAIAH ####[facility] [address] [place], [place] [address]Dr. aNhed Yañez BASOM % 0.0 % Critically low 0.2-2.0 [facility] Comment on above: Performed By: #### C BCISAIAH ####[facility] [address] [place], [place] [address]Dr. Nahed Yañez BLAST # Normal [facility] Comment on above: Performed By: #### C ROSARIO ####[facility] [address] [place], [place] [address]Dr. Nahed Yañez BLAST % Normal [facility] Comment on above: Performed By: #### C BCISAIAH ####[facility] [address] [place] [address]Dr. Nahed Yañez CORRECTED WBC Normal 4.0-11.0 [facility] Comment on above: Performed By: #### C BCISAIAH ####[facility] [address] [place], [place] [address]Dr. Nahed Yañez EOS # 0.00 103/ul Normal 0.00-0.70 [facility] Comment on above: Performed By: #### C BCISAIAH ####[facility] [address] [place] [id number]. Nahed Yañez EOS% 0.0 % Critically low 0.9-7.0 [facility] Comment on above: Performed By: #### C ROSARIO ####[facility] [address] [place] [id number]. Nahed Yañez HCT 39.5 % Normal 36.0-48.0 [facility] Comment on above: Performed By: #### C ROSARIO ####[facility] [address] [place] [id number]. Nahed Yañez HGB 13.0 g/dl Normal 12.0-16.0 [facility] Comment on above: Performed By: #### C ROSARIO ####[facility] [address] [place] [address]Dr. Nahed Yañez LYMPHM # 1.72 103/ul Normal 1.20-3.80 [facility] Comment on above: Performed By: #### C ROSARIO ####[facility] [address] [place] [id number]. Nahed Yañez LYMPHM% 10.0 % Critically low 20.5-60.0 [facility] Comment on above: Performed By: #### C ROSARIO ####[facility] [address] [place] [id number]. Nahed Yañez MCH 28.7 pg Normal 26.7-34.0 [facility] Comment on above: Performed By: #### C ROSARIO ####[facility] [address] [place] [id number]. Nahed Yañez MCHC 32.9 g/dl Normal 29.9-35.2 [facility] Comment on above: Performed By: #### C ROSARIO ####[facility] [address] [place], [place] [address]Dr. Nahed Yañez MCV 87.2 fL Normal 81.0-99.0 [facility] Comment on above: Performed By: #### C ROSARIO ####[facility] [address] [place], [place] [address]Dr. Nahed Yañez METAMYELOCYTE # Normal [facility] Comment on above: Performed By: #### C ROSARIO ####[facility] [address] [place] [phone]. Nahed Yañez METAMYELOCYTE % Normal [facility] Comment on above: Performed By: #### C ROSARIO ####[facility] [address] [place] [id number]. Nahed Yañez MONOM# 0.86 103/ul Critically high 0.30-0.80 [facility] Comment on above: Performed By: #### C ROSARIO ####[facility] [address] [place] [id number]. Nahed Yañez MONOM% 5.0 % Normal 1.7-12.0 [facility] Comment on above: Performed By: #### C ROSARIO ####[facility] [address] [place] [id number]. Nahed Yañez MPV 9.8 fL Normal 9.5-13.5 [facility] Comment on above: Performed By: #### Isabell PONCE ####[facility] [address] [place] [id number]. Nahed Yañez MYELOCYTE # Normal [facility] Comment on above: Performed By: #### Isabell PONCE ####[facility] [address] [place] [phone]. Nahed Yañez MYELOCYTE % Normal [facility] Comment on above: Performed By: #### Isabell PONCE ####[facility] [address] [place] [phone]. Nahed Yañez NRBC Normal [facility] Comment on above: Performed By: #### Isabell PONCE ####[facility] [address] [place] [id number]. Nahed Yañez PLT 388 103/ul Normal 150-450 [facility] Comment on above: Performed By: #### C ROSARIO ####[facility] [address] [place] [id number]. Nahed Yañez RBC 4.53 106/ul Normal 4.20-5.40 [facility] Comment on above: Performed By: #### C ROSARIO ####[facility] [address] [place] [id number]. Nahed Yañez RDW 14.4 % Normal 11.0-15.0 [facility] Comment on above: Performed By: #### C ROSARIO ####[facility] [address] [place], [place] [address]Er. Nahed Yañez SEG # 13.76 103/ul Critically high 1.40-6.50 [facility] Comment on above: Performed By: #### C ROSARIO ####[facility] [address] [place] [id number]. Nahed Yañez SEG % 80.0 % Critically high 43.0-75.0 [facility] Comment on above: Performed By: #### C ROSARIO ####[facility] [address] [place] [phone]. Nahed Yañez WBC 17.2 103/ul Critically high 4.0-11.0 [facility] Comment on above: Performed By: #### C ROSARIO ####[facility] [address] [place] [phone]. Nahed Otilio MAGNESIUMon 08-01-2022 Magnesium [Mass/Vol] 2.0 mg/dL Normal 1.8-2.4 [facility] Comment on above: Performed By: #### MG COLE, CMP ####[facility] [address] [place] [id number]. Nahed Yañez POINT OF CARE GLUCOSEon 07-13 Glucose [Mass/Vol] 267 mg/dL Critically high 74-106 [facility] Comment on above: Performed By: #### P OCGLUC ####[facility] [address] [place] [phone]. Rosemarieashley Yañez PROF 14(COMP METB)on 023 Albumin [Mass/Vol] 3.4 g/dL Normal 3.4-5.0 [facility] Comment on above: Performed By: #### MG COLE, CMP ####[facility] [address] [place] [address]Dr. Nahed Yañez Albumin/Globulin [Mass ratio] 0.9 {ratio} Normal [facility] Comment on above: Performed By: #### MG COLE, CMP ####[facility] [address] [place] [address]Dr. Nahed Yañez ALP [Catalytic activity/Vol] 100 U/L Normal 46-116 [facility] Comment on above: Performed By: #### MG COLE, CMP ####[facility] [address] [place], [place] [address]Dr. Nahed Yañez ALT [Catalytic activity/Vol] 19 U/L Normal 14-59 [facility] Comment on above: Performed By: #### MG COLE, CMP ####[facility] [address] [place], [place] [address]Dr. Nahed Yañez Anion gap [Moles/Vol] 12.7 mmol/L Normal [facility] Comment on above: Performed By: #### MG COLE, CMP ####[facility] [address] [place], [place] [address]Dr. Nahed Yañez AST [Catalytic activity/Vol] 13 U/L Critically low 15-37 [facility] Comment on above: Performed By: #### MG COLE, CMP ####[facility] [address] [place], [place] [address]Dr. Nahed Yañez Bilirubin [Mass/Vol] 0.4 mg/dL Normal 0.2-1.0 [facility] Comment on above: Performed By: #### MG COLE, CMP ####[facility] [address] [place], [place] [address]Dr. Nahed Yañez Calcium [Mass/Vol] 9.5 mg/dL Normal 8.5-10.1 [facility] Comment on above: Performed By: #### MG COLE, CMP ####[facility] [address] [place], [place] [address]Dr. Nahed Yañez Chloride [Moles/Vol] 100 mmol/L Normal 98-107 [facility] Comment on above: Performed By: #### MG COLE, CMP ####[facility] [address] [place], [place] [address]Dr. Nahed Yañez CO2 [Moles/Vol] 27.1 mmol/L Normal 21.0-32.0 [facility] Comment on above: Performed By: #### MG COLE, CMP ####[facility] [address] [place], [place] [address]Dr. Nahed Yañez Creatinine [Mass/Vol] 1.16 mg/dL Critically high 0.55-1.02 [facility] Comment on above: Performed By: #### MG COLE, CMP ####[facility] [address] [place], [place] [address]Dr. Nahed Yañez EGFR-AF VENEZUELAN 58 mL/min/1.73m2 Critically low >=60 [facility] Comment on above: Performed By: #### MG COLE, CMP ####[facility] [address] [place], [place] [address]Dr. Nahed Yañez EGFR-NON AF VENEZUELAN 47 mL/min/1.73m2 Critically low >=60 [facility] Comment on above: Performed By: #### MG COLE, CMP ####[facility] [address] [place], [place] [address]Dr. Nahed Yañez Globulin (S) [Mass/Vol] 3.6 g/dL Normal [facility] Comment on above: Performed By: #### MG COLE, CMP ####[facility] [address] [place], [place] [address]Dr. Nahed Yañez Glucose [Mass/Vol] 175 mg/dL Critically high 74-106 [facility] Comment on above: Performed By: #### MG COLE, CMP ####[facility] [address] [place], [place] [address]Dr. Nahed Yañez Potassium [Moles/Vol] 3.8 mmol/L Normal 3.5-5.1 [facility] Comment on above: Performed By: #### MG COLE, CMP ####[facility] [address] [place], [place] [address]Dr. Nahed Yañez Protein [Mass/Vol] 7.0 g/dL Normal 6.4-8.[address] [facility] Comment on above: Performed By: #### MG COLE, CMP ####[facility] [address] [place], [place] [address]Dr. Nahed Yañez Sodium [Moles/Vol] 136 mmol/L Normal 136-[address] [facility] Comment on above: Performed By: #### MG COLE, CMP ####[facility] [address] [place], [place] [address]Dr. Nahed Yañez Urea nitrogen [Mass/Vol] 25.0 mg/dL Critically high 7.0-18.0 [facility] Comment on above: Performed By: #### MG COLE, CMP ####[facility] [address] [place], [place] [address]Dr. Nahed Yañez Urea nitrogen/Creatinine [Mass ratio] 21.6 mg/mg Normal [facility] Comment on above: Performed By: #### MG COLE, CMP ####[facility] [address] [place], [place] [address]Dr. Nahed Yañez THEOPHYLLINEon 08-01-2022 THEOPHYLLINE 17.1 ug/mL Normal 10.0-20.0 [facility] Comment on above: Performed By: #### MG COLE, CMP ####[facility] [address] [place], [place] [address]Dr. Nahed Yañez CBC AUTO DIFFon 07-31-2022 BASO # 0.0 103/ul Normal 0.0-0.1 [facility] Comment on above: Performed By: #### C BC ####[facility] [address] [place], [place] [address]Dr. Nahed Yañez Basophils/100 WBC (Bld) 0.2 % Normal 0.2-2.0 [facility] Comment on above: Performed By: #### C BC ####[facility] [address] [place], [place] [address]Dr. Nahed Yañez EO # 0.0 103/ul Normal 0.0-0.7 [facility] Comment on above: Performed By: #### C BC ####[facility] [address] [place] [address]Dr. Nahed Yañez Eosinophils/100 WBC (Bld) 0.0 % Critically low 0.9-7.0 [facility] Comment on above: Performed By: #### C BC ####[facility] [address] [place], [place] [address]Dr. Nahed Yañez Erythrocyte distribution width (RBC) [Ratio] 14.2 % Normal 11.0-15.0 [facility] Comment on above: Performed By: #### C BC ####[facility] [address] [place], [place] [address]Dr. Nahed Yañez Hematocrit (Bld) [Volume fraction] 36.0 % Normal 36.0-48.0 [facility] Comment on above: Performed By: #### C BC ####[facility] [address] [place], [place] [address]Dr. Nahed Yañez Hemoglobin (Bld) [Mass/Vol] 11.4 g/dL Critically low 12.0-16.0 [facility] Comment on above: Performed By: #### C BC ####[facility] [address] [place], [place] [address]Dr. Rosemarieashley Yañez IG # 0.21 10e3/ul Critically high 0.00-0.03 [facility] Comment on above: Performed By: #### C BC ####[facility] [address] [place], [place] [address]Dr. Nahed Yañez IG % 1.8 % Critically high 0.0-0.5 [facility] Comment on above: Performed By: #### C BC ####[facility] [address] [place], [place] [address]Dr. Nahed Yañez LYMPH # 1.3 103/ul Normal 1.2-3.8 [facility] Comment on above: Performed By: #### C BC ####[facility] [address] [place], [place] [address]Dr. Nahed Yañez Lymphocytes/100 WBC (Bld) 11.2 % Critically low 20.5-60.0 [facility] Comment on above: Performed By: #### C BC ####[facility] [address] [place] [address]Dr. Nahed Yañez MANUAL DIFF REQ NO Normal [facility] Comment on above: Performed By: #### C BC ####[facility] [address] [place] [address]Dr. Nahed Yañez MCH (RBC) [Entitic mass] 27.7 pg Normal 26.7-34.0 [facility] Comment on above: Performed By: #### C BC ####[facility] [address] [place], [place] [address]Dr. Nahed Yañez MCHC (RBC) [Mass/Vol] 31.7 g/dL Normal 29.9-35.2 [facility] Comment on above: Performed By: #### C BC ####[facility] [address] [place], [place] [address]Dr. Nahed Yañez MCV (RBC) [Entitic vol] 87.6 fL Normal 81.0-99.0 [facility] Comment on above: Performed By: #### C BC ####[facility] [address] [place], [place] [address]Dr. Nahed Yañez MONO # 0.8 103/ul Normal 0.3-0.8 [facility] Comment on above: Performed By: #### C BC ####[facility] Grfowbmurl[address] [place], [place] [address]Dr. Nahed Yañez Monocytes/100 WBC (Bld) 7.0 % Normal 1.7-12.0 [facility] Comment on above: Performed By: #### C BC ####[facility] Nqtgevhgzs[address] [place], [place] [address]DrShaun Yañez NEUT # 9.2 103/ul Critically high 1.4-6.5 The [facility] Comment on above: Performed By: #### C BC ####[facility] Lvwxvvmiug428[address] [place], [place] [address]Dr. Nahed Yañez Neutrophils/100 WBC (Bld) 79.8 % Critically high 43.0-75.0 [facility] Comment on above: Performed By: #### C BC ####[facility] Jfqccbrknd74[address] [place], [place] [address]Dr. Nahed Yañez Platelet mean volume (Bld) [Entitic vol] 9.8 fL Normal 9.5-13.5 [facility] Comment on above: Performed By: #### C BC ####[facility] Kujfiialsq[address] [place], [place] [address]Dr. Nahed Yañez PLT 317 103/ul Normal 150-450 [facility] Comment on above: Performed By: #### C BC ####[facility] Rknajfdyak[address] [place], [place] [address]Dr. Nahed Yañez RBC 4.11 106/ul Critically low 4.20-5.40 [facility] Comment on above: Performed By: #### C BC ####[facility] Egnfstlyrg[address] [place], [place] [address]Dr. Nahed Yañez WBC 11.5 103/ul Critically high 4.0-11.0 The [facility] Comment on above: Performed By: #### C BC ####[facility] Nmlojwrqgc[address] [place], [place] [address]Dr. Nahed Yañez MAGNESIUMon 07-31-2022 Magnesium [Mass/Vol] 1.8 mg/dL Normal 1.8-2.4 [facility] Comment on above: Performed By: #### JUDY Castro, CMP ####[facility] Pyfflbahnz4734[address] [place], [place] [address]Dr. Nahed Yañez POINT OF CARE GLUCOSEon -2 0 Glucose [Mass/Vol] 217 mg/dL Critically high 74-106 [facility] Comment on above: Performed By: #### P OCGLUC ####[facility] Uxryxqdwjr[address] [place], [place] [address]Dr. Nahed Yañez Glucose [Mass/Vol] 169 mg/dL Critically high 74-106 [facility] Comment on above: Performed By: #### P OCGLUC ####[facility] [address]ltwax[address] [place] [address]Dr. Nahed Yañez Glucose [Mass/Vol] 297 mg/dL Critically high 74-106 [facility] Comment on above: Performed By: #### P OCGLUC ####[facility] Ajfrrwennr[address] [place] [address]Dr. Nahed Yañez Glucose [Mass/Vol] 233 mg/dL Critically high 74-106 [facility] Comment on above: Performed By: #### P OCGLUC ####[facility] Qxadwfekvq79[address] [place] [address]Dr. Nahed Yañez PROF 14(COMP METB)on 023 Albumin [Mass/Vol] 3.0 g/dL Critically low 3.4-5.0 [facility] Comment on above: Performed By: #### JUDY Castro, CMP ####[facility] Vvduzsalhq[address] [place] [address]Dr. Nahed Yañez Albumin/Globulin [Mass ratio] 0.8 {ratio} Normal [facility] Comment on above: Performed By: #### JUDY Castro CMP ####[facility] Jvfjlnlzml4[address] [place] [address]Dr. Nahed Yañez ALP [Catalytic activity/Vol] 83 U/L Normal 46-116 [facility] Comment on above: Performed By: #### JUDY Castro, CMP ####[facility] Hipkqkgued[address] [place] [address]Dr. Nahed Yañez ALT [Catalytic activity/Vol] 21 U/L Normal 14-59 [facility] Comment on above: Performed By: #### JUDY Castro CMP ####[facility] Zgcqtyyvjw9189 [place] [address]Dr. Nahed Yañez Anion gap [Moles/Vol] 14.8 mmol/L Normal [facility] Comment on above: Performed By: #### JUDY Castro, CMP ####[facility] Okmauhmedq1706 [place] [address]Dr. Nahed Yañez AST [Catalytic activity/Vol] 13 U/L Critically low 15-37 [facility] Comment on above: Performed By: #### JUDY Castro CMP ####[facility] Nsjehtooiw4614 [place] [address]Dr. Nahed Yañez Bilirubin [Mass/Vol] 0.2 mg/dL Normal 0.2-1.0 [facility] Comment on above: Performed By: #### JUDY Castro, CMP ####[facility] Qjonkenijt4635[address] [place], [place] [address]Dr. Nahed Yañez Calcium [Mass/Vol] 9.2 mg/dL Normal 8.5-10.1 [facility] Comment on above: Performed By: #### JUDY Castro CMP ####[facility] Jclrswgjbe299[address] [place], [place] [address]Dr. Nahed Yañez Chloride [Moles/Vol] 101 mmol/L Normal 98-107 [facility] Comment on above: Performed By: #### JUDY Castro CMP ####[facility] Hnmsaqpige418[address] [place], [place] [address]Dr. Nahed Yañez CO2 [Moles/Vol] 26.5 mmol/L Normal 21.0-32.0 [facility] Comment on above: Performed By: #### JUDY Castro, CMP ####[facility] Phaycvoezg17217[address] [place], [place] [address]Dr. Nahed Yañez Creatinine [Mass/Vol] 1.04 mg/dL Critically high 0.55-1.02 [facility] Comment on above: Performed By: #### JUDY Castro, CMP ####[facility] Gyelyyqndk059[address] [place], [place] [address]Dr. Nahed Yañez EGFR-AF VENEZUELAN >60 Normal >=60 [facility] Comment on above: Performed By: #### JUDY Castro CMP ####[facility] Nafpxrdfyg[address] [place], [place] [address]Dr. Nahed Yañez EGFR-NON AF VENEZUELAN 54 mL/min/1.73m2 Critically low >=60 [facility] Comment on above: Performed By: #### JUDY Castro, CMP ####[facility] Biuwpjhwjw89[address] [place] [address]Dr. Nahed Yañez Globulin (S) [Mass/Vol] 3.6 g/dL Normal [facility] Comment on above: Performed By: #### JUDY Castro CMP ####[facility] Vpzbqagydk5539 [place] [address]Dr. Nahed Yañez Glucose [Mass/Vol] 171 mg/dL Critically high 74-106 [facility] Comment on above: Performed By: #### JUDY Castro CMP ####[facility] Uasnoykokv4027[address] [place], [place] [address]Dr. Nahed Yañez Potassium [Moles/Vol] 3.3 mmol/L Critically low 3.5-5.1 [facility] Comment on above: Performed By: #### JUDY Castro CMP ####[facility] Jkelmjpili100[address] [place], [place] [address]Dr. Nahed Yañez Protein [Mass/Vol] 6.6 g/dL Normal 6.4-8.2 [facility] Comment on above: Performed By: #### JUDY Castro CMP ####[facility] Ccqrdshaqp0764[address] [place], [place] [address]Dr. Nahed Yañez Sodium [Moles/Vol] 139 mmol/L Normal 136-145 [facility] Comment on above: Performed By: #### JUDY Castro CMP ####[facility] Rgrijvsnam5065[address] [place], [place] [address]Dr. Nahed Yañez Urea nitrogen [Mass/Vol] 23.0 mg/dL Critically high 7.0-18.0 [facility] Comment on above: Performed By: #### JUDY Castro CMP ####[facility] Biwilqrekc994[address] [place], [place] [address]Dr. Nahed Yañez Urea nitrogen/Creatinine [Mass ratio] 22.1 mg/mg Normal [facility] Comment on above: Performed By: #### JUDY Catsro CMP ####[facility] Mulsefjcwt218[address] [place], [place] [address]Dr. Nahed Yañez THEOPHYLLINEon 07-31-2022 THEOPHYLLINE 14.2 ug/mL Normal 10.0-20.0 [facility] Comment on above: Performed By: #### M JUDY Moore, [facility] ####[facility] Pvmjoehcno[address] [place] [address]Dr. Nahed Yañez BLOOD CULTURE ID PANELon A. baumannii Not detected Normal NOT DETECTED The [facility] Comment on above: Performed By: #### B CID2 ####[facility] Myfpzzysdy9103 [place] [address]Dr. Yiashley Yañez Bacteriodes fragilis Not detected Normal NOT DETECTED [facility] Comment on above: Performed By: #### B CID2 ####[facility] Ifoftmmipv539[address] [place], [place] [address]Dr. Nahed Yañez BCID CONTROLS PASSED Normal The [facility] Comment on above: Performed By: #### B CID2 ####[facility] Rtuuocpjfe[address] [place], [place] [address]Dr. Nahed Otilio BCIDBTHD BLOOD CULTURE BOTTLE INFORMATION Normal [facility] Comment on above: Performed By: #### B CID2 ####[facility] Ecpbzzuxxw45[address] [place] [address]Dr. Yiashley Yañez BCIDHD1 ANTIMICROBIAL RESISTANCE GENES Normal [facility] Comment on above: Performed By: #### B CID2 ####[facility] Ckkbubzrwz215[address] [place], [place] [address]Dr. Yiashley Yañez BCIDHD2 SEE BELOW Normal [facility] Comment on above: Result Comment: Note : Antimicrobial resitance can occur via multiple mechanisms. A Not Detected result for the [employer] antomicrobial resistance gene assays does not indicate antimicrobial susceptibility. Subculturing is required for species identification and susceptibility testing of isolates. Performed By: #### B CID2 ####[facility] Tgjemxkwec[address] [place], [place] [address]Dr. Nahed Yañez BCIDHD3 Positive Normal [facility] Comment on above: Performed By: #### B CID2 ####[facility] Jdhykwcojd[address] [place], [place] [address]Dr. Nahed Yañez BCIDHD4 Negative Normal [facility] Comment on above: Performed By: #### B CID2 ####[facility] Xmzziyixpo[address] [place] [address]Dr. Nahed Yañez BCIDHD5 YEAST Normal [facility] Comment on above: Performed By: #### B CID2 ####[facility] Vplyrbkqgf38[address] [place] [address]Dr. Rosemarielan Yañez Bottle Set: Set 2 Normal [facility] Comment on above: Performed By: #### B CID2 ####[facility] Ncdymmvmom[address] [place], [place] [address]Dr. Nahed Yañez Bottle: Pediatric Normal [facility] Comment on above: Performed By: #### B CID2 ####[facility] Obwgyuegxb8634[address] [place], [place] [address]Dr. Nahed Yañez C. neoformans/gattii Not detected Normal NOT DETECTED [facility] Comment on above: Performed By: #### B CID2 ####[facility] Ykshoqqhsn7[address] [place], [place] [address]Dr. Nahed Yañez Sil albicans Not detected Normal NOT DETECTED [facility] Comment on above: Performed By: #### B CID2 ####[facility] Fhyoidupmu532[address] [place], [place] [address]Dr. Nahed Yañez Sil auris Not detected Normal NOT DETECTED The [facility] Comment on above: Performed By: #### B CID2 ####[facility] Qdswnoioxe760[address] [place], [place] [address]Dr. Nahed Yañez Sil glabrata Not detected Normal NOT DETECTED [facility] Comment on above: Performed By: #### B CID2 ####[facility] Zttnkasmto810[address] [place], [place] [address]Dr. Nahed Yañez Sil Krusei Not detected Normal NOT DETECTED The [facility] Comment on above: Performed By: #### B CID2 ####[facility] Xmblsutgfi167[address] [place], [place] [address]Dr. Nahed Yañez Sil Parapsilosis Not detected Normal NOT DETECTED [facility] Comment on above: Performed By: #### B CID2 ####[facility] Otoefccwzr5199[address] [place], [place] [address]Dr. Nahed Yañez Sil Tropicalis Not detected Normal NOT DETECTED [facility] Comment on above: Performed By: #### B CID2 ####[facility] Qlbqspqydw1716[address] [place], [place] [address]Dr. Nahed Yañez CTX-M Resistant Gene Not Applicable Normal NOT DETECTE D [facility] Comment on above: Performed By: #### B CID2 ####[facility] Lsiuxjfrmq5129[address] [place], [place] [address]Dr. Nahed Yañez E. Cloacae complex Not detected Normal NOT DETECTED [facility] Comment on above: Performed By: #### B CID2 ####[facility] Osiaocaxml[address] [place], [place] [address]Dr. Nahed Yañez E. faecalis Not detected Normal NOT DETECTED [facility] Comment on above: Performed By: #### B CID2 ####[facility] Cscmtmwbgp718[address] [place], [place] [address]Dr. Nahed Yañez E. faecium Not detected Normal NOT DETECTED [facility] Comment on above: Performed By: #### B CID2 ####[facility] Hsgtnszriq107[address] [place], [place] [address]Dr. Nahed Yañez Enterobacteriaceae Not detected Normal NOT DETECTED [facility] Comment on above: Performed By: #### B CID2 ####[facility] Stisxhjlcr7738[address] [place], [place] [address]Dr. Nahed Yañez Escherichia coli Not detected Normal NOT DETECTED [facility] Comment on above: Performed By: #### B CID2 ####[facility] Kmriaunduz2415[address] [place], [place] [address]Dr. Nahed Yañez H. influenzae Not detected Normal NOT DETECTED [facility] Comment on above: Performed By: #### B CID2 ####[facility] Weqyqorxhg0510[address] [place], [place] [address]Dr. Nahed Yañez IMP Resistant Gene Not Applicable Normal NOT DETECTED [facility] Comment on above: Performed By: #### B CID2 ####[facility] Iqodqkluvo4512[address] [place], [place] [address]Dr. Nahed Yañez K. oxytoca Not detected Normal NOT DETECTED [facility] Comment on above: Performed By: #### B CID2 ####[facility] Dlvpusaeui358[address] [place], [place] [address]Dr. Nahed Yañez K. pneumoniae Not detected Normal NOT DETECTED [facility] Comment on above: Performed By: #### B CID2 ####[facility] Bwytcvdxrh367[address] [place], [place] [address]Dr. Rosemarieashley Otilio Klebsiella aerogenes Not detected Normal NOT DETECTED [facility] Comment on above: Performed By: #### B CID2 ####[facility] Tjpklxouuo246[address] [place], [place] [address]Dr. Nahed Yañez KPC Resistant Gene Not detected Normal NOT DETECTED [facility] Comment on above: Performed By: #### B CID2 ####[facility] Xjhxmmmspj6468[address] [place], [place] [address]Dr. Nahed Yañez List. monocytogenes Not detected Normal NOT DETECTED [facility] Comment on above: Performed By: #### B CID2 ####[facility] Tiknicfsjh8935[address] [place], [place] [address]Dr. Nahed Yañez Mcr-1 Resistant Gene Not Applicable Normal NOT DETECTE D [facility] Comment on above: Performed By: #### B CID2 ####[facility] Mayfdmfthg734[address] [place], [place] [address]Dr. Rosemarielan Otilio mecA/C Not Applicable Normal NOT DETECTED [facility] Comment on above: Performed By: #### B CID2 ####[facility] Nhaiyrpsmt7439[address] [place], [place] [address]Dr. Nahed Yañez mecA/C MREJ Not Applicable Normal NOT DETECTED [facility] Comment on above: Performed By: #### B CID2 ####[facility] Zlwqoxhvai534[address] [place], [place] [address]Dr. Nahed Yañez N. meningitidis Not detected Normal NOT DETECTED The [facility] Comment on above: Performed By: #### B CID2 ####[facility] Mxuvrcdsnj0039[address] [place], [place] [address]Dr. Nahed Yañez NDM Resistant Gene Not Applicable Normal NOT DETECTED [facility] Comment on above: Performed By: #### B CID2 ####[facility] Ywdliqqdyn5825 [place] [address]Dr. Nahed Yañez Oxa-48-like Not Applicable Normal NOT DETECTED The [facility] Comment on above: Performed By: #### B CID2 ####[facility] Jwwwlatlxg8047 [place] [address]Dr. Nahed Yañez Proteus Not detected Normal NOT DETECTED [facility] Comment on above: Performed By: #### B CID2 ####[facility] Ilrklvnuds[address] [place], [place] [address]Dr. Nahed Yañez Pseud. aeruginosa Not detected Normal NOT DETECTED [facility] Comment on above: Performed By: #### B CID2 ####[facility] Zriuedbdfc9[address] [place], [place] [address]Dr. Nahed Yañez S. maltophilia Not detected Normal NOT DETECTED [facility] Comment on above: Performed By: #### B CID2 ####[facility] Ixgeblovmu3945[address] [place], [place] [address]Dr. Nahed Yañez Salmonella Not detected Normal NOT DETECTED [facility] Comment on above: Performed By: #### B CID2 ####[facility] Umwkryeraf64[address] [place], [place] [address]Dr. Nahed Yañez Seratia marcescens Not detected Normal NOT DETECTED [facility] Comment on above: Performed By: #### B CID2 ####[facility] Ehefsqgrzn4289[address] [place], [place] [address]Dr. Nahed Yañez Site: R AC Normal [facility] Comment on above: Performed By: #### B CID2 ####[facility] Yaldambjib25[address] [place] [address]Dr. Nahed Yañez Staph. aureus Not detected Normal NOT DETECTED The [facility] Comment on above: Performed By: #### B CID2 ####[facility] Cxjrctudlq[address] [place], [place] [address]Dr. Nahed Yañez Staph. epidermidis Not detected Normal NOT DETECTED [facility] Comment on above: Performed By: #### B CID2 ####[facility] Stvtfopjly8406 [place] [address]Dr. Nahed Yañez Staph. lugdunensis Not detected Normal NOT DETECTED [facility] Comment on above: Performed By: #### B CID2 ####[facility] Aslqxzvpdu1811[address] [place], [place] [address]Dr. Nahed Yañez Staphylococcus Detected Critically abnormal NOT DETECTED [facility] Comment on above: Performed By: #### B CID2 ####[facility] Janguqroki[address]49[address] [place], [place] [address]Dr. Nahed Yañez Strep. agalactiae Not detected Normal NOT DETECTED [facility] Comment on above: Performed By: #### B CID2 ####[facility] Ropxbqyegz8[address] [place], [place] [address]Dr. Nahed Yañez Strep. pneumoniae Not detected Normal NOT DETECTED [facility] Comment on above: Performed By: #### B CID2 ####[facility] Iyrwylvvdn17[address] [place], [place] [address]Dr. Nahed Yañez Strep. pyogenes Not detected Normal NOT DETECTED The [facility] Comment on above: Performed By: #### B CID2 ####[facility] Ccefheisxt[address] [place], [place] [address]Dr. Nahed Yañez Streptococcus Not detected Normal NOT DETECTED The [facility] Comment on above: Performed By: #### B CID2 ####[facility] Dnepnglmik84[address] [place], [place] [address]Dr. Nahed Yañez Tucker/B Resist. Gene Not detected Normal NOT DETECTED [facility] Comment on above: Performed By: #### B CID2 ####[facility] Mwsspfowbi744[address] [place], [place] [address]Dr. Nahed Yañez VIM Resistant Gene Not Applicable Normal NOT DETECTED [facility] Comment on above: Performed By: #### B CID2 ####[facility] Ctmqvzbnhj[address] [place], [place] [address]Dr. Nahed Yañez CARDIAC FRANCISCO 3-6on 3 CK [Catalytic activity/Vol] 25 U/L Critically low 26-192 [facility] Comment on above: Performed By: #### C MREP ####[facility] Jlfzqeuzpy4[address] [place] [id number]. Nahed Yañez CK.MB [Mass/Vol] ng/mL Normal <=3.60 [facility] Comment on above: Performed By: #### C MREP ####[facility] Eidvpcfitn5598 [place] [id number]. Nahed Yañez HSTROP 35.8 pg/mL Normal 4.0-51.3 [facility] Comment on above: Result Comment: CUT- OFF POINTS HAVE BEEN ESTABLISHED BASED ON THE FOURTH UNIVERSAL DEFINITIONS OF MYOCARDIALINFARCTION. THE UPPER REFERENCE LIMIT (URL) OF TROPONIN, DEFINED THE 99TH PERCENTILE OFcTnI DISTRIBUTION IN A REFERENCE POPULATION, HAS BEEN CONFIRMED THE DECISION THRESHOLDFOR [place] DIAGNOSIS. Performed By: #### C MREP ####[facility] Icupatbodm[address]376 [place] [address]Dr. Nahed Yañez CK [Catalytic activity/Vol] 28 U/L Normal 26-192 [facility] Comment on above: Performed By: #### C MREP ####[facility] Tmmkepkhld97[address] [place] [address]Dr. Nahed Yañez CK.MB [Mass/Vol] ng/mL Normal <=3.60 [facility] Comment on above: Performed By: #### C MREP ####[facility] Iqbjvbxrdd[address] [place], [place] [address]Dr. Nahed Yañez HSTROP 36.8 pg/mL Normal 4.0-51.3 [facility] Comment on above: Result Comment: CUT- OFF POINTS HAVE BEEN ESTABLISHED BASED ON THE FOURTH UNIVERSAL DEFINITIONS OF MYOCARDIALINFARCTION. THE UPPER REFERENCE LIMIT (URL) OF TROPONIN, DEFINED THE 99TH PERCENTILE OFcTnI DISTRIBUTION IN A REFERENCE POPULATION, HAS BEEN CONFIRMED THE DECISION THRESHOLDFOR [place] DIAGNOSIS. Performed By: #### C MREP ####[facility] Momhrzwrxo02[address] [place] [address]Dr. Nahed Yañez CBC AUTO DIFFon 07-30-2022 BASO # 0.0 103/ul Normal 0.0-0.1 [facility] Comment on above: Performed By: #### C BC ####[facility] Vknurztzdw[address] [place], [place] [address]Dr. Nahed Yañez Basophils/100 WBC (Bld) 0.1 % Critically low 0.2-2.0 [facility] Comment on above: Performed By: #### C BC ####[facility] Ebnhnviddj875[address] [place], [place] [address]Dr. Nahed Yañez EO # 0.0 103/ul Normal 0.0-0.7 [facility] Comment on above: Performed By: #### C BC ####[facility] Lqmkjmdkhw754[address] [place], [place] [address]Dr. Nahed Yañez Eosinophils/100 WBC (Bld) 0.0 % Critically low 0.9-7.0 [facility] Comment on above: Performed By: #### C BC ####[facility] Cxtyolotuw6169[address] [place], [place] [address]Dr. Nahed Yañez Erythrocyte distribution width (RBC) [Ratio] 14.4 % Normal 11.0-15.0 [facility] Comment on above: Performed By: #### C BC ####[facility] Weciuhujgz[address] [place], [place] [address]Dr. Nahed Yañez Hematocrit (Bld) [Volume fraction] 37.7 % Normal 36.0-48.0 [facility] Comment on above: Performed By: #### C BC ####[facility] Yvtucqwnho[address] [place], [place] [address]Dr. Nahed Yañez Hemoglobin (Bld) [Mass/Vol] 12.1 g/dL Normal 12.0-16.0 [facility] Comment on above: Performed By: #### C BC ####[facility] Qfqssxoaqm[address] [place], [place] [address]Dr. Nahed Yañez IG # 0.07 10e3/ul Critically high 0.00-0.03 [facility] Comment on above: Performed By: #### C BC ####[facility] Wckwbtgove[address] [place], [place] [address]Dr. Nahed Yañez IG % 0.5 % Normal 0.0-0.5 [facility] Comment on above: Performed By: #### C BC ####[facility] Narnjtgjai6372 [place] [id number]. Nahed Yañez LYMPH # 1.0 103/ul Critically low 1.2-3.8 [facility] Comment on above: Performed By: #### C BC ####[facility] Etezvnleuu9243 [place] [id number]. Nahed Yañez Lymphocytes/100 WBC (Bld) 7.6 % Critically low 20.5-60.0 [facility] Comment on above: Performed By: #### C BC ####[facility] Tofqkyawlr[address] [place] [id number]. Nahed Yañez MANUAL DIFF REQ NO Normal [facility] Comment on above: Performed By: #### C BC ####[facility] Kogdeivraf4[address] [place] [id number]. Nahed Yañez MCH (RBC) [Entitic mass] 28.8 pg Normal 26.7-34.0 [facility] Comment on above: Performed By: #### C BC ####[facility] Ujobmnnuif[address] [place] [address]Dr. Nahed Yañez MCHC (RBC) [Mass/Vol] 32.1 g/dL Normal 29.9-35.2 [facility] Comment on above: Performed By: #### C BC ####[facility] Qhkqgzwgid4081 [place] [id number]. Nahed Yañez MCV (RBC) [Entitic vol] 89.8 fL Normal 81.0-99.0 [facility] Comment on above: Performed By: #### C BC ####[facility] Eiqtcasivg[address] [place] [address]Dr. Nahed Yañez MONO # 0.2 103/ul Critically low 0.3-0.8 [facility] Comment on above: Performed By: #### C BC ####[facility] Jmkswcpqew84[address] [place] [id number]. Nahed Yañez Monocytes/100 WBC (Bld) 1.5 % Critically low 1.7-12.0 [facility] Comment on above: Performed By: #### C BC ####[facility] Vvvhjvanxn13[address] [place] [id number]. Nahed Yañez NEUT # 11.7 103/ul Critically high 1.4-6.5 [facility] Comment on above: Performed By: #### C BC ####[facility] Fhlfecufwg8874 [place] [id number]. Nahed Yañez Neutrophils/100 WBC (Bld) 90.3 % Critically high 43.0-75.0 [facility] Comment on above: Performed By: #### C BC ####[facility] Pmpufgcjoh5928 [place] [id number]. Nahed Yañez Platelet mean volume (Bld) [Entitic vol] 9.9 fL Normal 9.5-13.5 [facility] Comment on above: Performed By: #### C BC ####[facility] Szcinjjlmd[address] [place], [place] [address]Dr. Nahed Yañez PLT 319 103/ul Normal 150-450 [facility] Comment on above: Performed By: #### C BC ####[facility] Uzzhqbawmm[address] [place], [place] [address]Dr. Nahed Yañez RBC 4.20 106/ul Normal 4.20-5.40 [facility] Comment on above: Performed By: #### C BC ####[facility] Ljldrkflsd77[address] [place] [id number]. Nahed Yañez WBC 13.0 103/ul Critically high 4.0-11.0 [facility] Comment on above: Performed By: #### C BC ####[facility] Anynisfrst[address] [place], [place] [id number]. Nahed Yañez CULTURE BLOODon 07-30-2022 Microscopic examination of blood, culture Culture Observations: NO GROWTH AT 5 DAYS. Normal [facility] Comment on above: Performed By: #### B LDCX1 ####[facility] Ekqifmjzgv77[address] [place] [id number]. Nahed Yañez CULTURE SPUTUMon 07-30-2022 CULTURE SPUTUM Culture Observations : NORMAL RESPIRATORY MIGUEL. Normal [facility] Comment on above: Performed By: #### S PUTCX ####[facility] Kefsfgdkih4378 [place] [id number]. Nahed Yañez CULTURE URINEon 07-30-2022 CULTURE URINE Culture Observations : MODERATE GROWTH OF MIXED GENITAL MIGUEL. NO POTENTIAL PATHOGENS SEEN. Normal [facility] Comment on above: Performed By: #### U RCX ####[facility] Oatvprbkag36[address] [place] [id number]. Nahed Yañez Covid-19 PCR (CVDTB)on 07-12 SARS-CoV-2 (COVID-19) RNA MIRNA+probe Ql (Unsp spec) Not detected Normal NOT DETECTED [facility] Comment on above: Result Comment: When [...] for this test is supported by the Bulb Packer of Health and Human Service's declaration that [...] Performed By: #### C VDTBH ####[facility] Xdvfmtlxeh7619 [place], [place] [address]Jp. Nahed Yañez ER URINE PROFILEon 3 Bilirubin Ql (U) Negative Normal NEGATIVE [facility] Comment on above: Performed By: #### E YARELIS ALCARAZ ####[facility] Eydsdxwfpw1606 [place], [place] [address]Er. Nahed Yañez Clarity (U) CLEAR Normal CLEAR [facility] Comment on above: Performed By: #### E YARELIS ALCARAZ ####[facility] Vidhlqxfdv[address] [place], [place] [address]Dr. Nahed Yañez Color (U) LT. YELLOW Normal YELLOW [facility] Comment on above: Performed By: #### YARELIS DOVE ####[facility] Dyepthxezv00[address] [place], [place] [address]Dr. Nahed Yañez ERUAHD A micrscopic examination will be performed if indicated. Normal [facility] Comment on above: Performed By: #### YARELIS DOVE ####[facility] Ynttvcyixm75[address] [place], [place] [address]Dr. Nahed Yañez Glucose Ql (U) 500 mg/dl Abnormal NEGATIVE [facility] Comment on above: Performed By: #### YARELIS DOVE ####[facility] Htabowvgua86[address] [place], [place] [address]Dr. Nahed Yañez Hemoglobin Ql (U) Negative Normal NEGATIVE [facility] Comment on above: Performed By: #### YARELIS DOVE ####[facility] Cdsaaohstf40[address] [place], [place] [address]Dr. Nahed Yañez Ketones Ql (U) Negative Normal NEGATIVE [facility] Comment on above: Performed By: #### YARELIS DOVE ####[facility] Olnwtiwbsm8[address] [place], [place] [address]Dr. Nahed Yañez LEUKOCYTES TRACE Abnormal NEGATIVE [facility] Comment on above: Performed By: #### YARELIS DOVE ####[facility] Gyoyvzsedz97[address] [place], [place] [address]Dr. Nahed Yañez Nitrite Ql (U) Negative Normal NEGATIVE [facility] Comment on above: Performed By: #### NUNU DOVERO ####[facility] Flqeldhsyc137[address] [place], [place] [address]Dr. Nahed Yañez pH (U) 6.0 [pH] Normal 5-9 [facility] Comment on above: Performed By: #### YARELIS DVOE ####[facility] Sibmkllczr[address] [place], [place] [address]Dr. Nahed Yañez SPEC GRAVITY >=1.030 Abnormal 1.005-<=1.02 5 [facility] Comment on above: Performed By: #### NUNU DOVERO ####[facility] Zwgiueemrm33[address] [place], [place] [address]Dr. Nahed Yañez UA PROTEIN Negative Normal NEGATIVE/ TRACE [facility] Comment on above: Performed By: #### NNUU DOVERO ####[facility] Fprqxqzxxn[address] [place], [place] [address]Dr. Nahed Yañez UR MICRO IND INDICATED Normal [facility] Comment on above: Performed By: #### NUNU DOVERO ####[facility] Vomjvmyrbh456[address] [place], [place] [address]Dr. Nahed Yañez Urobilinogen Qn (U) 0.2 {Alem'U}/dL Normal 0.2 - 1. 0 [facility] Comment on above: Performed By: #### YARELIS DOVE ####[facility] Qhjlqxyfpc46[address] [place], [place] [address]Dr. Rosemarieashley Otilio INFLUENZA A AND B AGon 07-30 INFLUANEGH SEE BELOW Normal [facility] Comment on above: Result Comment: Nega tive for Flu A protein angiten. Infection due to Flu A cannot be ruled out. Flu A angiten in the sample may be below the detection limit of the test. Performed By: #### I NFLUAB ####[facility] Rwlsbpppsg[address] [place], [place] [address]Dr. Nahed Yañez INFLUBNEGH SEE BELOW Normal [facility] Comment on above: Result Comment: Nega tive for Flu B protein antigen. Infection due to Flu B cannot be ruled out. Flu B antigen in the sample may be below the detection limit of the test. Performed By: #### I NFLUAB ####[facility] Anngkbjhpd[address] [place], [place] [address]Dr. Nahed Yañez INFLUENZA A AG Negative Normal NEGATIVE SEE COMMENT [facility] Comment on above: Performed By: #### I NFLUAB ####[facility] Legzzlzakz[address] [place], [place] [address]Dr. Nahed Yañez INFLUENZA B AG Negative Normal NEGATIVE SEE COMMENT [facility] Comment on above: Performed By: #### I NFLUAB ####[facility] Ndlyxzofhl22[address] [place], [place] [address]Dr. Nahed Yañez LACTATE/LACTIC ACIDon 2022 Lactate [Moles/Vol] 2.5 mmol/L Critically high 0.4-2.0 [facility] Comment on above: Performed By: #### L ACT ####[facility] Vdeocfdvia686[address] [place], [place] [address]Dr. Nahed Yañez Lactate [Moles/Vol] 3.3 mmol/L Critically high 0.4-2.0 [facility] Comment on above: Performed By: #### L ACT ####[facility] Zmvdrxnyuk[address] [place], [place] [address]Dr. Nahed Yañez Lactate [Moles/Vol] 2.7 mmol/L Critically high 0.4-2.0 [facility] Comment on above: Performed By: #### L ACT ####[facility] Lcisuhtboe14[address] [place], [place] [address]Dr. Nahed Yañez Lactate [Moles/Vol] 2.8 mmol/L Critically high 0.4-2.0 [facility] Comment on above: Performed By: #### L ACT ####[facility] Yrvagytuim[address] [place], [place] [address]Dr. Nahed Yañez MAGNESIUMon 07-30-2022 Magnesium [Mass/Vol] 1.9 mg/dL Normal 1.8-2.4 [facility] Comment on above: Performed By: #### M G, CMP ####[facility] Thkgbzskcg9025[address] [place], [place] [address]Dr. Nahed Yañez POINT OF CARE GLUCOSEon 07-12 Glucose [Mass/Vol] 220 mg/dL Critically high 74-106 [facility] Comment on above: Performed By: #### P OCGLUC ####[facility] Ayfajhfiqt638[address] [place], [place] [address]Dr. Nahed Yañez Glucose [Mass/Vol] 162 mg/dL Critically high 74-106 [facility] Comment on above: Result Comment: Kaycee clemons Meter Performed By: #### P OCGLUC ####[facility] Rhxrfrkiqc65[address] [place] [address]Dr. Nahed Yañez PROF 14(COMP METB)on 023 Albumin [Mass/Vol] 2.9 g/dL Critically low 3.4-5.0 [facility] Comment on above: Performed By: #### Pablo Moore, CMP ####[facility] Izpxlvzutq924[address] [place], [place] [address]Dr. Nahed Yañez Albumin/Globulin [Mass ratio] 0.8 {ratio} Normal [facility] Comment on above: Performed By: #### Pablo Moore, CMP ####[facility] Dnixtrzxvd[address] [place], [place] [address]Dr. Nahed Yañez ALP [Catalytic activity/Vol] 94 U/L Normal 46-116 [facility] Comment on above: Performed By: #### Pablo Moore, CMP ####[facility] Ukxvqjlsqc5[address] [place], [place] [address]Dr. Nahed Yañez ALT [Catalytic activity/Vol] 22 U/L Normal 14-59 [facility] Comment on above: Performed By: #### Pablo Moore, CMP ####[facility] Sipivelkid8088[address] [place], [place] [address]Dr. Nahed Yañez Anion gap [Moles/Vol] 12.4 mmol/L Normal [facility] Comment on above: Performed By: #### Pablo Moore, CMP ####[facility] Fekmexrtco[address] [place], [place] [address]Dr. Nahed Yañez AST [Catalytic activity/Vol] 18 U/L Normal 15-37 [facility] Comment on above: Performed By: #### Pablo Moore, CMP ####[facility] Gmoprqenab657[address] [place], [place] [address]Dr. Nahed Yañez Bilirubin [Mass/Vol] 0.1 mg/dL Critically low 0.2-1.0 [facility] Comment on above: Performed By: #### Pablo G, CMP ####[facility] Eewtdvwuew365[address] [place], [place] [address]Dr. Nahed Yañez Calcium [Mass/Vol] 8.9 mg/dL Normal 8.5-10.1 [facility] Comment on above: Performed By: #### Pablo Moore, CMP ####[facility] Jopivojqvp7768[address] [place], [place] [address]Dr. Nahed Yañez Chloride [Moles/Vol] 99 mmol/L Normal 98-107 [facility] Comment on above: Performed By: #### Pablo Moore, CMP ####[facility] Grjumnyxwo5911[address] [place], [place] [address]Dr. Nahed Yañez CO2 [Moles/Vol] 26.0 mmol/L Normal 21.0-32.0 [facility] Comment on above: Performed By: #### Pablo Moore, CMP ####[facility] Lnpnbxkcve864[address] [place], [place] [address]Dr. Nahed Yañez Creatinine [Mass/Vol] 1.16 mg/dL Critically high 0.55-1.02 [facility] Comment on above: Performed By: #### Pablo Moore, CMP ####[facility] Hcrbfucdad765[address] [place], [place] [address]Dr. Nahed Yañez EGFR-AF VENEZUELAN 58 mL/min/1.73m2 Critically low >=60 [facility] Comment on above: Performed By: #### Pablo Moore, CMP ####[facility] Grsqjsghcu55[address] [place], [place] [address]Dr. Nahed Yañez EGFR-NON AF VENEZUELAN 47 mL/min/1.73m2 Critically low >=60 [facility] Comment on above: Performed By: #### Pablo Moore, CMP ####[facility] Lzwtgpcyyv2239[address] [place], [place] [address]Dr. Nahed Yañez Globulin (S) [Mass/Vol] 3.7 g/dL Normal [facility] Comment on above: Performed By: #### Pablo Moore, CMP ####[facility] Flvesaqovz994[address] [place], [place] [address]Dr. Nahed Yañez Glucose [Mass/Vol] 267 mg/dL Critically high 74-106 [facility] Comment on above: Performed By: #### Pablo Moore, CMP ####[facility] Tendqtqhym[address] [place], [place] [address]Dr. Nahed Yañez Potassium [Moles/Vol] 4.4 mmol/L Normal 3.5-5.1 [facility] Comment on above: Performed By: #### Pablo Moore, CMP ####[facility] Hinfoeotow[address] [place], [place] [address]Dr. Nahed Yañez Protein [Mass/Vol] 6.6 g/dL Normal 6.4-8.2 [facility] Comment on above: Performed By: #### M Teresa, CMP ####[facility] Amcvvgihii779[address] [place], [place] [address]Dr. Nahed Yañez Sodium [Moles/Vol] 133 mmol/L Critically low 136-145 [facility] Comment on above: Performed By: #### Pablo Moore, CMP ####[facility] Tfaectvdid506[address] [place], [place] [address]Dr. Nahed Yañez Urea nitrogen [Mass/Vol] 33.0 mg/dL Critically high 7.0-18.0 [facility] Comment on above: Performed By: #### Pablo Moore, CMP ####[facility] Oboepglwrb63[address] [place], [place] [address]Dr. Nahed Yañez Urea nitrogen/Creatinine [Mass ratio] 28.4 mg/mg Normal [facility] Comment on above: Performed By: #### Pablo Moore, CMP ####[facility] Xcjsllbaxc83[address] [place], [place] [address]Dr. Nahed Yañez SPUTUM GRAM STAINon 07-31-19 COMMENTS Normal [facility] Comment on above: Performed By: #### S PUTGS ####[facility] Dgwbyxzvde023[address] [place], [place] [address]Dr. Nahed Yañez DIPHTHEROIDS Normal [facility] Comment on above: Performed By: #### S PUTGS ####[facility] Raojlfsonb[address] [place], [place] [address]Dr. Nahed Yañez EPITHELIALS <25 Normal [facility] Comment on above: Performed By: #### S PUTGS ####[facility] Tzjjjhoxrk057[address] [place], [place] [address]Dr. Nahed Yañez FUNGAL ELEMENTS Normal [facility] Comment on above: Performed By: #### S PUTGS ####[facility] Hfinqmndud40[address] [place] [address]Dr. Nahed Yañez GRAM NEG BACILLI Normal [facility] Comment on above: Performed By: #### S PUTGS ####[facility] Dngprbivip44[address] [place] [address]Dr. Nahed Yañez GRAM NEG DIPPLOCOCCI Normal [facility] Comment on above: Performed By: #### S PUTGS ####[facility] Aegkonjzrd312[address] [place], [place] [address]Dr. Nahed Yañez GRAM POS BACILLI FEW Normal [facility] Comment on above: Performed By: #### S PUTGS ####[facility] Qruiocjtye[address] [place], [place] [address]Dr. Nahed Yañez GRAM POSITIVE COCCI FEW Normal The [facility] Comment on above: Performed By: #### S PUTGS ####[facility] Sghpxeexoh104[address] [place], [place] [address]Dr. Nahed Yañez WBC (Bld) [#/Vol] 10*3/uL Normal [facility] Comment on above: Performed By: #### S PUTGS ####[facility] Aixnhgirba[address] [place], [place] [address]Dr. Nahed Yañez URINE MICROSCOPIC ONLYon BACTERIA SMALL Abnormal NONE SEEN [facility] Comment on above: Performed By: #### YARELIS DOVE ####[facility] Dybqhngtxc[address] [place], [place] [address]Dr. Nahed Yañez Bacteria identified Cx Nom (U) INDICATED Normal [facility] Comment on above: Performed By: #### Isidoro ALCARAZ UMICRO ####[facility] Xgehtloips[address] [place], [place] [address]Dr. Nahed Yañez CAST NONE SEEN Normal NONE SEEN [facility] Comment on above: Performed By: #### NUNU DOVERO ####[facility] Qxyianiyqc6[address] [place] [address]Dr. Nahed Yañez Crystals LM Nom (Urine sed) NONE SEEN Normal NONE SEEN [facility] Comment on above: Performed By: #### Isidoro ALCARAZ UMICRO ####[facility] Bwzdrdxhai9[address] [place] [id number]. Rosemarieashley Otilio Epithelial cells LM Ql (Urine sed) FEW Abnormal NONE SEEN /RARE [facility] Comment on above: Performed By: #### Isidoro ALCARZA, UMICRO ####[facility] Clajjxqvsf5[address] [place] [id number]. Rosemarieashley Otilio MUCOUS TRACE Abnormal NONE SEEN [facility] Comment on above: Performed By: #### Isidoro ALCARAZ UMICRO ####[facility] Szgrrvtamp5490 [place] [id number]. Nahed Yañez RBC 0-2 Normal 0-2 [facility] Comment on above: Performed By: #### Isidoro ALCARAZ UMICRO ####[facility] Frfadtfxlh38[address] [place] [address]Dr. Nahed Yañez WBC 0-2 Abnormal NONE SEEN [facility] Comment on above: Performed By: #### Isidoro ALCARAZ UMICRO ####[facility] Uygssfdoij16[address] [place] [address]Dr. Nahed Yañez XR CHEST 1 Von 07-30-2022 XR CHEST 1 V Normal [facility] CARDIAC FRANCISCO ADMITon 023 CK [Catalytic activity/Vol] 59 U/L Normal 26-192 [facility] Comment on above: Performed By: #### Isabell AGRAWAL BMP ####[facility] Mgfgajvcdg6[address] [place] [address]Dr. Nahed Yañez CK.MB [Mass/Vol] 0.59 ng/mL Normal <=3.60 [facility] Comment on above: Performed By: #### Isabell MADM, BMP ####[facility] Vembsehvso4[address] [place] [address]Dr. Nahed Yañez HSTROP 40.7 pg/mL Normal 4.0-51.3 [facility] Comment on above: Result Comment: CUT- OFF POINTS HAVE BEEN ESTABLISHED BASED ON THE FOURTH UNIVERSAL DEFINITIONS OF MYOCARDIALINFARCTION. THE UPPER REFERENCE LIMIT (URL) OF TROPONIN, DEFINED THE 99TH PERCENTILE OFcTnI DISTRIBUTION IN A REFERENCE POPULATION, HAS BEEN CONFIRMED THE DECISION THRESHOLDFOR [place] DIAGNOSIS. Performed By: #### C NGHIA, BMP ####[facility] Jyspvokgfi[address] [place] [address]Dr. Nahed Yañez ANDRE 89 ng/mL Critically high 9-82 [facility] Comment on above: Performed By: #### C NGHIA, BMP ####[facility] Pyjkneigoy99[address] [place] [address]Dr. Nahed Yañez CBC AUTO DIFFon 07-29-2022 BASO # 0.0 103/ul Normal 0.0-0.1 [facility] Comment on above: Performed By: #### C BC ####[facility] Qcn[address]qklwff[address] [place], [place] [address]Dr. Nahed Yañez Basophils/100 WBC (Bld) 0.1 % Critically low 0.2-2.0 [facility] Comment on above: Performed By: #### C BC ####[facility] Tbvqxszgdc[address] [place], [place] [address]Dr. Nahed Yañez EO # 0.0 103/ul Normal 0.0-0.7 [facility] Comment on above: Performed By: #### C BC ####[facility] Yrgkrcpzbq[address] [place], [place] [address]Dr. Nahed Yañez Eosinophils/100 WBC (Bld) 0.0 % Critically low 0.9-7.0 [facility] Comment on above: Performed By: #### C BC ####[facility] Meffexifqm85[address] [place], [place] [address]Dr. Nahed Yañez Erythrocyte distribution width (RBC) [Ratio] 14.5 % Normal 11.0-15.0 [facility] Comment on above: Performed By: #### C BC ####[facility] Hxyfznvalz[address] [place], [place] [address]Dr. Nahed Yañez Hematocrit (Bld) [Volume fraction] 42.1 % Normal 36.0-48.0 [facility] Comment on above: Performed By: #### C BC ####[facility] Sswtjhfzwb[address] [place], [place] [address]DrShaun Yañez Hemoglobin (Bld) [Mass/Vol] 13.4 g/dL Normal 12.0-16.0 [facility] Comment on above: Performed By: #### C BC ####[facility] Trspqzpkao28[address] [place] [address]DrShaun Yañez IG # 0.07 10e3/ul Critically high 0.00-0.03 [facility] Comment on above: Performed By: #### C BC ####[facility] Viqhlqofor79[address] [place] [address]DrShaun Yañez IG % 0.5 % Normal 0.0-0.5 [facility] Comment on above: Performed By: #### C BC ####[facility] Belxsvzyhs[address] [place], [place] [address]DrShaun Yañez LYMPH # 3.2 103/ul Normal 1.2-3.8 [facility] Comment on above: Performed By: #### C BC ####[facility] Ystaksrofc04[address] [place], [place] [address]DrShaun Yañez Lymphocytes/100 WBC (Bld) 21.2 % Normal 20.5-60.0 [facility] Comment on above: Performed By: #### C BC ####[facility] Bvzskwwvvd[address] [place], [place] [address]DrShaun Yañez MANUAL DIFF REQ NO Normal [facility] Comment on above: Performed By: #### C BC ####[facility] Iveugmquix[address] [place], [place] [address]DrShaun Yañez MCH (RBC) [Entitic mass] 28.1 pg Normal 26.7-34.0 [facility] Comment on above: Performed By: #### C BC ####[facility] Yrvzrgbzfl[address] [place], [place] [address]DrShaun Yañez MCHC (RBC) [Mass/Vol] 31.8 g/dL Normal 29.9-35.2 [facility] Comment on above: Performed By: #### C BC ####[facility] Govmaomhqq[address] [place], [place] [address]DrShaun Yañez MCV (RBC) [Entitic vol] 88.3 fL Normal 81.0-99.0 [facility] Comment on above: Performed By: #### C BC ####[facility] Etshwyzwsl[address] [place] [address]DrShaun Nahed Yañez MONO # 1.0 103/ul Critically high 0.3-0.8 [facility] Comment on above: Performed By: #### C BC ####[facility] Guyggkwifv[address] [place], [place] [address]DrShaun Nahed Otilio Monocytes/100 WBC (Bld) 6.3 % Normal 1.7-12.0 [facility] Comment on above: Performed By: #### C BC ####[facility] Owyq[address]hrfv[address] [place], [place] [address]DrShaun Nahed Yañez NEUT # 11.0 103/ul Critically high 1.4-6.5 [facility] Comment on above: Performed By: #### C BC ####[facility] Cgyjdixlnu[address] [place], [place] [address]DrShaun Nahed Otilio Neutrophils/100 WBC (Bld) 71.9 % Normal 43.0-75.0 [facility] Comment on above: Performed By: #### C BC ####[facility] Wzxkxyduet[address] [place], [place] [address]DrShaun Nahed Otilio Platelet mean volume (Bld) [Entitic vol] 9.9 fL Normal 9.5-13.5 [facility] Comment on above: Performed By: #### C BC ####[facility] [address]qcsrlqxic[address] [place] [address]Dr. Nahed Otilio PLT 385 103/ul Normal 150-450 [facility] Comment on above: Performed By: #### C BC ####[facility] Mnxlcruwpb[address] [place], [place] [address]Dr. Rosemarieashley Otilio RBC 4.77 106/ul Normal 4.20-5.40 [facility] Comment on above: Performed By: #### C BC ####[facility] Patluswkue[address] [place], [place] [address]DrShaun Yañez WBC 15.3 103/ul Critically high 4.0-11.0 [facility] Comment on above: Performed By: #### C BC ####[facility] [address] [place] [address]Dr. Nahed Yañez PROF CHEM 8 (BAS METB)on Anion gap [Moles/Vol] 13.4 mmol/L Normal [facility] Comment on above: Performed By: #### Isabell AGRAWAL, BMP ####[facility] [address] [place] [address]Dr. Nahed Yañez Calcium [Mass/Vol] 9.5 mg/dL Normal 8.5-10.1 [facility] Comment on above: Performed By: #### Isabell AGRAWAL, BMP ####[facility] Lgxylmpqfn[address] [place], [place] [address]Dr. Nahed Yañez Chloride [Moles/Vol] 101 mmol/L Normal 98-107 [facility] Comment on above: Performed By: #### Isabell AGRAWAL, BMP ####[facility] Lfmguieekx[address] [place], [place] [address]Dr. Nahed Yañez CO2 [Moles/Vol] 27.9 mmol/L Normal 21.0-32.0 [facility] Comment on above: Performed By: #### Isabell AGRAWAL, BMP ####[facility] Roblmgexts4312[address] [place], [place] [address]Dr. Nahed Yañez Creatinine [Mass/Vol] 0.91 mg/dL Normal 0.55-1.02 [facility] Comment on above: Performed By: #### Isabell AGRAWAL, BMP ####[facility] Ifhqgacvxk[address] [place], [place] [address]Dr. Nahed Yañez EGFR-AF VENEZUELAN >60 Normal >=60 [facility] Comment on above: Performed By: #### Isabell AGRAWAL, BMP ####[facility] Weooadcugn[address] [place], [place] [address]Dr. Nahed Yañez EGFR-NON AF VENEZUELAN >60 Normal >=60 [facility] Comment on above: Performed By: #### Isabell AGRAWAL, BMP ####[facility] [address]oohvd[address] [place] [address]Dr. Nahed Yañez Glucose [Mass/Vol] 100 mg/dL Normal 74-[address] [facility] Comment on above: Performed By: #### C NGHIA, BMP ####[facility] Veefhbtykx047[address] [place], [place] [address]Dr. Nahed Yañez Potassium [Moles/Vol] 4.3 mmol/L Normal 3.5-5.1 [facility] Comment on above: Result Comment: samp le slightly hemolized Performed By: #### C NGHIA, BMP ####[facility] Wosykltdbd674[address] [place], [place] [address]Dr. Nahed Yañez Sodium [Moles/Vol] 138 mmol/L Normal 136-[address] [facility] Comment on above: Performed By: #### C NGHIA, BMP ####[facility] Vwedxidlek2915[address] [place], [place] [address]Dr. Nahed Otilio Urea nitrogen [Mass/Vol] 34.0 mg/dL Critically high 7.0-18.0 [facility] Comment on above: Performed By: #### C NGHIA, BMP ####[facility] Xapavugbvn6738[address] [place], [place] [address]Dr. Nahed Yañez Urea nitrogen/Creatinine [Mass ratio] 37.4 mg/mg Normal [facility] Comment on above: Performed By: #### Isabell AGRAWAL, BMP ####[facility] Rqwaqosaqq94[address] [place], [place] [address]Dr. Nahed Otilio BNPon 07-28-2022 Natriuretic peptide B (Bld) [Mass/Vol] 249.0 pg/mL Normal <=900.0 [facility] Comment on above: Performed By: #### B SUPERVISOR PLATE FORMING ####[facility] Sbqjgjkvlo8[address] [place], [place] [address]Dr. Nahed Otilio CBC AUTO DIFFon 07-28-2022 BASO # 0.0 103/ul Normal 0.0-0.1 [facility] Comment on above: Performed By: #### C BC ####[facility] Hxucjdgwgt736[address] [place], [place] [address]Dr. Nahed Otilio Basophils/100 WBC (Bld) 0.1 % Critically low 0.2-2.0 [facility] Comment on above: Performed By: #### C BC ####[facility] Qufwbiqntt6211[address] [place], [place] [address]Dr. Nahed Yañez EO # 0.0 103/ul Normal 0.0-0.7 [facility] Comment on above: Performed By: #### C BC ####[facility] Djqgoprbhr7555[address] [place], [place] [address]Dr. Nahed Yañez Eosinophils/100 WBC (Bld) 0.0 % Critically low 0.9-7.0 [facility] Comment on above: Performed By: #### C BC ####[facility] Cijydpsgeq313[address] [place], [place] [address]Dr. Nahed Yañez Erythrocyte distribution width (RBC) [Ratio] 14.3 % Normal 11.0-15.0 [facility] Comment on above: Performed By: #### C BC ####[facility] Zsfbgqxllr349[address] [place], [place] [address]Dr. Nahed Yañez Hematocrit (Bld) [Volume fraction] 38.7 % Normal 36.0-48.0 [facility] Comment on above: Performed By: #### C BC ####[facility] Crrxxqpaki6570[address] [place], [place] [address]Dr. Nahed Yañez Hemoglobin (Bld) [Mass/Vol] 12.2 g/dL Normal 12.0-16.0 [facility] Comment on above: Performed By: #### C BC ####[facility] Enfwzbtejy8701[address] [place], [place] [address]Dr. Nahed Yañez IG # 0.06 10e3/ul Critically high 0.00-0.03 [facility] Comment on above: Performed By: #### C BC ####[facility] Hipfiqvdkk0867[address] [place], [place] [address]Dr. Nahed Yañez IG % 0.5 % Normal 0.0-0.5 [facility] Comment on above: Performed By: #### C BC ####[facility] Dluddyhyth1911[address] [place], [place] [address]DrShaun Yañez LYMPH # 0.7 103/ul Critically low 1.2-3.8 [facility] Comment on above: Performed By: #### C BC ####[facility] Y[address]imkxgdm25[address] [place] [id number] Yañez Lymphocytes/100 WBC (Bld) 5.7 % Critically low 20.5-60.0 [facility] Comment on above: Performed By: #### C BC ####[facility] Izkmukplot508[address] [place], [place] [address]DrShaun Yañez MANUAL DIFF REQ NO Normal [facility] Comment on above: Performed By: #### C BC ####[facility] Lxkpowjhgq0833[address] [place], [place] [address]DrShaun Yañez MCH (RBC) [Entitic mass] 28.2 pg Normal 26.7-34.0 [facility] Comment on above: Performed By: #### C BC ####[facility] Fhciscolgr9260[address] [place], [place] [address]DrShaun Yañez MCHC (RBC) [Mass/Vol] 31.5 g/dL Normal 29.9-35.2 [facility] Comment on above: Performed By: #### C BC ####[facility] Sxmfvhzpoy912[address] [place], [place] [address]DrShaun Yañez MCV (RBC) [Entitic vol] 89.6 fL Normal 81.0-99.0 [facility] Comment on above: Performed By: #### C BC ####[facility] Cnunabotvc3139[address] [place], [place] [address]DrShaun Yañez MONO # 0.3 103/ul Normal 0.3-0.8 [facility] Comment on above: Performed By: #### C BC ####[facility] Tvzoqlppvy200[address] [place], [place] [address]DrShaun Yañez Monocytes/100 WBC (Bld) 2.2 % Normal 1.7-12.0 [facility] Comment on above: Performed By: #### C BC ####[facility] Sqlxmzycku522[address] [place], [place] [address]DrShaun Yañez NEUT # 11.1 103/ul Critically high 1.4-6.5 [facility] Comment on above: Performed By: #### C BC ####[facility] Ethuiryxqu5465 [place] [id number] Nahed Yañez Neutrophils/100 WBC (Bld) 91.5 % Critically high 43.0-75.0 [facility] Comment on above: Performed By: #### C BC ####[facility] Dknnezsgja0408 [place] [address]DrShaun Nahed Yañez Platelet mean volume (Bld) [Entitic vol] 10.1 fL Normal 9.5-13.5 [facility] Comment on above: Performed By: #### C BC ####[facility] Taytubiekb7668 [place] [address]DrShaun Nahed Yañez PLT 323 103/ul Normal 150-450 [facility] Comment on above: Performed By: #### C BC ####[facility] Jshbohalwf0959[address] [place], [place] [address]DrShaun Nahed Yañez RBC 4.32 106/ul Normal 4.20-5.40 [facility] Comment on above: Performed By: #### C BC ####[facility] Jnsoacrmjf[address] [place], [place] [address]DrShaun Nahed Yañez WBC 12.1 103/ul Critically high 4.0-11.0 [facility] Comment on above: Performed By: #### C BC ####[facility] Trvirdqcbe96[address] [place] [address] Nahed Otilio POINT OF CARE GLUCOSEon 07-12 Glucose [Mass/Vol] 308 mg/dL Critically high 74-106 [facility] Comment on above: Performed By: #### P OCGLUC ####[facility] Nikatbieeo3726[address] [place], [place] [address]DrShaun Yañez Glucose [Mass/Vol] 341 mg/dL Critically high 74-106 [facility] Comment on above: Performed By: #### P OCGLUC ####[facility] Uihfnhqnkc994[address] [place], [place] [address]DrShaun Yañez Glucose [Mass/Vol] 320 mg/dL Critically high 74-106 [facility] Comment on above: Performed By: #### P OCGLUC ####[facility] Lcovulycnz949[address] [place], [place] [address]Dr. Nahed Yañez PROF 14(COMP METB)on 023 Albumin [Mass/Vol] 3.0 g/dL Critically low 3.4-5.0 [facility] Comment on above: Performed By: #### C MP ####[facility] Bhpjmzmedn865[address] [place], [place] [address]Dr. Nahed Yañez Albumin/Globulin [Mass ratio] 0.7 {ratio} Normal [facility] Comment on above: Performed By: #### C MP ####[facility] Tzlgssjgiz0104[address] [place], [place] [address]Dr. Nahed Yañez ALP [Catalytic activity/Vol] 93 U/L Normal 46-116 [facility] Comment on above: Performed By: #### C MP ####[facility] Wccdpajssh878[address] [place], [place] [address]Dr. Nahed Yañez ALT [Catalytic activity/Vol] 15 U/L Normal 14-59 [facility] Comment on above: Performed By: #### C MP ####[facility] Cpppavclzg5515[address] [place], [place] [address]Dr. Nahed Yañez Anion gap [Moles/Vol] 13.0 mmol/L Normal [facility] Comment on above: Performed By: #### C MP ####[facility] Lgyqvomxaj766[address] [place], [place] [address]Dr. Nahed Yañez AST [Catalytic activity/Vol] 11 U/L Critically low 15-37 [facility] Comment on above: Performed By: #### C MP ####[facility] Qcrxsfjkoj5909[address] [place], [place] [address]Dr. Nahed Yañez Bilirubin [Mass/Vol] 0.2 mg/dL Normal 0.2-1.0 [facility] Comment on above: Performed By: #### C MP ####[facility] Pdblsoqeoh305[address] [place], [place] [address]Dr. Nahed Yañez Calcium [Mass/Vol] 9.6 mg/dL Normal 8.5-10.1 [facility] Comment on above: Performed By: #### C MP ####[facility] Sjrohtswwg38[address] [place] [address]Dr. Nahed Otilio Chloride [Moles/Vol] 100 mmol/L Normal 98-107 [facility] Comment on above: Performed By: #### C MP ####[facility] Ybhgiycmoc5068[address] [place], [place] [address]Dr. Nahed Otilio CO2 [Moles/Vol] 27.3 mmol/L Normal 21.0-32.0 [facility] Comment on above: Performed By: #### C MP ####[facility] Xtqfnuscdm730[address] [place], [place] [address]Dr. Rosemarieashley Otilio Creatinine [Mass/Vol] 1.19 mg/dL Critically high 0.55-1.02 [facility] Comment on above: Performed By: #### C MP ####[facility] Uahspsxtja4722[address] [place], [place] [address]Dr. Nahed Otilio EGFR-AF VENEZUELAN 56 mL/min/1.73m2 Critically low >=60 [facility] Comment on above: Performed By: #### C MP ####[facility] Canckmujni2923[address] [place], [place] [address]Dr. Nahed Otilio EGFR-NON AF VENEZUELAN 46 mL/min/1.73m2 Critically low >=60 [facility] Comment on above: Performed By: #### C MP ####[facility] Gqhsrpbulh0023[address] [place], [place] [address]Dr. Nahed Otilio Globulin (S) [Mass/Vol] 4.1 g/dL Normal [facility] Comment on above: Performed By: #### C MP ####[facility] Rsprpmymyo6930[address] [place], [place] [address]Dr. Nahed Yañez Glucose [Mass/Vol] 244 mg/dL Critically high 74-106 [facility] Comment on above: Performed By: #### C MP ####[facility] Pzeioctlzw1748[address] [place], [place] [address]Dr. Nahed Yañez Potassium [Moles/Vol] 4.3 mmol/L Normal 3.5-5.1 [facility] Comment on above: Performed By: #### C MP ####[facility] Nutzxizdhz195[address] [place], [place] [address]Dr. Nahed Yañez Protein [Mass/Vol] 7.1 g/dL Normal 6.4-8.2 [facility] Comment on above: Performed By: #### C MP ####[facility] Iebmkdccnk437[address] [place], [place] [address]Dr. Nahed Yañez Sodium [Moles/Vol] 136 mmol/L Normal 136-[address] [facility] Comment on above: Performed By: #### C MP ####[facility] Fuxipxrhme775[address] [place], [place] [address]Dr. Nahed Yañez Urea nitrogen [Mass/Vol] 19.0 mg/dL Critically high 7.0-18.0 [facility] Comment on above: Performed By: #### C MP ####[facility] Sszvhhdkci320[address] [place], [place] [address]Dr. Nahed Yañez Urea nitrogen/Creatinine [Mass ratio] 16.0 mg/mg Normal [facility] Comment on above: Performed By: #### C MP ####[facility] Bcfeprnofj425[address] [place], [place] [address]Dr. Nahed Yañez BNPon 07-27-2022 Natriuretic peptide B (Bld) [Mass/Vol] 1093.0 pg/mL Critically high <=900.0 [facility] Comment on above: Performed By: #### B SUPERVISOR PLATE FORMING ####[facility] Istbvwxukz494[address] [place], [place] [address]Dr. Nahed Yañez CBC AUTO DIFFon 07-27-2022 BASO # 0.1 103/ul Normal 0.0-0.1 [facility] Comment on above: Performed By: #### C BC ####[facility] Atkhijzxln320[address] [place], [place] [address]Dr. Nahed Yañez Basophils/100 WBC (Bld) 0.3 % Normal 0.2-2.0 [facility] Comment on above: Performed By: #### C BC ####[facility] U[address]fqfqspr32[address] [place] [id number]. Nahed Yañez EO # 0.2 103/ul Normal 0.0-0.7 [facility] Comment on above: Performed By: #### C BC ####[facility] Qiumvqkjms7270 [place] [id number]. Nahed Yañez Eosinophils/100 WBC (Bld) 1.2 % Normal 0.9-7.0 [facility] Comment on above: Performed By: #### C BC ####[facility] Xuypygmxlg087[address] [place], [place] [address]Dr. Nahed Yañez Erythrocyte distribution width (RBC) [Ratio] 14.1 % Normal 11.0-15.0 [facility] Comment on above: Performed By: #### C BC ####[facility] Qhlxmecufm200[address] [place], [place] [address]Dr. Nahed Yañez Hematocrit (Bld) [Volume fraction] 42.2 % Normal 36.0-48.0 [facility] Comment on above: Performed By: #### C BC ####[facility] Fdalmnzznc7709[address] [place], [place] [address]Dr. Nahed Yañez Hemoglobin (Bld) [Mass/Vol] 13.6 g/dL Normal 12.0-16.0 [facility] Comment on above: Performed By: #### C BC ####[facility] Oxlzlqtxxp009[address] [place], [place] [address]Dr. Nahed Yañez IG # 0.09 10e3/ul Critically high 0.00-0.03 [facility] Comment on above: Performed By: #### C BC ####[facility] Rxiuoshuoe6735[address] [place], [place] [address]Dr. Nahed Yañez IG % 0.5 % Normal 0.0-0.5 [facility] Comment on above: Performed By: #### C BC ####[facility] Uogfcpjvpd9317[address] [place], [place] [address]Dr. Nahed Yañez LYMPH # 1.8 103/ul Normal 1.2-3.8 [facility] Comment on above: Performed By: #### C BC ####[facility] Wsnyapplpx0384 [place] [address]Dr. Rosemarieashley Yañez Lymphocytes/100 WBC (Bld) 10.2 % Critically low 20.5-60.0 [facility] Comment on above: Performed By: #### C BC ####[facility] Namvlrlncx2852 [place] [address]Dr. Nahed Yañez MANUAL DIFF REQ NO Normal [facility] Comment on above: Performed By: #### C BC ####[facility] Ghfuydprwx[address] [place], [place] [address]Dr. Rosemarieashley Yañez MCH (RBC) [Entitic mass] 28.3 pg Normal 26.7-34.0 [facility] Comment on above: Performed By: #### C BC ####[facility] Qlxbhrbqqh65[address] [place], [place] [address]Dr. Nahed Yañez MCHC (RBC) [Mass/Vol] 32.2 g/dL Normal 29.9-35.2 [facility] Comment on above: Performed By: #### C BC ####[facility] Xrdnoxkfjx119[address] [place], [place] [address]Dr. Nahed Yañez MCV (RBC) [Entitic vol] 87.9 fL Normal 81.0-99.0 [facility] Comment on above: Performed By: #### C BC ####[facility] Dlfalokatb848[address] [place], [place] [address]Dr. Nahed Yañez MONO # 0.9 103/ul Critically high 0.3-0.8 [facility] Comment on above: Performed By: #### C BC ####[facility] Zuuylvhubt54[address] [place], [place] [address]Dr. Nahed Yañez Monocytes/100 WBC (Bld) 5.2 % Normal 1.7-12.0 [facility] Comment on above: Performed By: #### C BC ####[facility] Ydtrvakcks[address] [place], [place] [address]Dr. Nahed Yañez NEUT # 14.4 103/ul Critically high 1.4-6.5 [facility] Comment on above: Performed By: #### C BC ####[facility] Mmgsbczdyz7948 [place], [place] [address]Zr. Nahed Yañez Neutrophils/100 WBC (Bld) 82.6 % Critically high 43.0-75.0 [facility] Comment on above: Performed By: #### C BC ####[facility] Ngztjkiibl1384 [place], [place] [address]Dq. Nahed Yañez Platelet mean volume (Bld) [Entitic vol] 10.1 fL Normal 9.5-13.5 [facility] Comment on above: Performed By: #### C BC ####[facility] Ffnkgyiijs6204 [place], [place] [address]Xx. Nahed Yañez PLT 336 103/ul Normal 150-450 [facility] Comment on above: Performed By: #### C BC ####[facility] Zvrlidrlal5[address] [place] [phone]. Nahed Yañez RBC 4.80 106/ul Normal 4.20-5.40 [facility] Comment on above: Performed By: #### C BC ####[facility] Diitmfeuqd5315 [place], [place] [address]Oa. Nahed Yañez WBC 17.4 103/ul Critically high 4.0-11.0 [facility] Comment on above: Performed By: #### C BC ####[facility] Embypkwmib8868 [place] [phone]. Nahed Yañez CTA CHEST WO W CONon 023 CTA CHEST WO W CON Normal [facility]on 07-12 SARS-CoV-2 (COVID-19) RNA MIRNA+probe Ql (Unsp spec) Not detected Normal NOT DETECTED [facility] Comment on above: Result Comment: When [...] for this test is supported by the [employer] and Human Service's declaration that [...] Performed By: #### C VDTB ####[facility] Dubobgivsq699[address] [place], [place] [address]Dr. Nahed Yañez ECHOCARDIO M/2D COMPLETEon 0 07-27-2022 ECHOCARDIO M/2D COMPLETE Normal [facility] ER URINE PROFILEon 3 Bilirubin Ql (U) Negative Normal NEGATIVE [facility] Comment on above: Performed By: #### U MICRO, ERUR ####[facility] Mtcuvcsjzh23[address] [place], [place] [address]Dr. Nahed Yañez Clarity (U) CLEAR Normal CLEAR [facility] Comment on above: Performed By: #### U MICRO, ERUR ####[facility] Mbkggnrrov710[address] [place], [place] [address]Dr. Nahed Yañez Color (U) LT. YELLOW Normal YELLOW [facility] Comment on above: Performed By: #### U MICRO, ERUR ####[facility] Oomtfgjgws27[address] [place], [place] [address]Dr. Nahed Yañez ERUAHD A micrscopic examination will be performed if indicated. Normal [facility] Comment on above: Performed By: #### U MICRO, ERUR ####[facility] Pxhpkbmfkm94[address] [place], [place] [address]Dr. Nahed Yañez Glucose Ql (U) >1000 Abnormal NEGATIVE [facility] Comment on above: Performed By: #### U MICRO, ERUR ####[facility] Uxdbcqwjxo320[address] [place], [place] [address]Dr. Nahed Yañez Hemoglobin Ql (U) TRACE-LYSED Abnormal NEGATIVE [facility] Comment on above: Performed By: #### U MICRO, ERUR ####[facility] Sdextmqnya40[address] [place] [address]Dr. Nahed Yañez Ketones Ql (U) TRACE Abnormal NEGATIVE [facility] Comment on above: Performed By: #### U MICRO, ERUR ####[facility] Ytcrxmlncx9591 [place] [address]Dr. Nahed Yañez LEUKOCYTES Negative Normal NEGATIVE [facility] Comment on above: Performed By: #### U MICRO, ERUR ####[facility] Ypwpohthro6439 [place] [address]Dr. Nahed Yañez Nitrite Ql (U) Negative Normal NEGATIVE [facility] Comment on above: Performed By: #### U MICRO, ERUR ####[facility] Cgqpfqeuqr74[address] [place] [address]Dr. Nahed Yañez pH (U) 7.0 [pH] Normal 5-9 [facility] Comment on above: Performed By: #### U MICRO, ERUR ####[facility] [address]heiyba[address] [place], [place] [address]Dr. Nahed Yañez SPEC GRAVITY 1.020 Normal 1.005-<=1.02 5 [facility] Comment on above: Performed By: #### U MICRO, ERUR ####[facility] Ghyjzlnunp[address] [place], [place] [address]Dr. Nahed Yañez UA PROTEIN Negative Normal NEGATIVE/ TRACE [facility] Comment on above: Performed By: #### U MICRO, ERUR ####[facility] Axhemyxeme[address] [place] [address]Dr. Nahed Yañez UR MICRO IND INDICATED Normal [facility] Comment on above: Performed By: #### U MICRO, ERUR ####[facility] Sleivuhthb47[address] [place] [address]Dr. Nahed Yañez Urobilinogen Qn (U) 0.2 {Alem'U}/dL Normal 0.2 - 1. 0 [facility] Comment on above: Performed By: #### U MICRO, ERUR ####[facility] Ctzshpzupb[address] [place], [place] [address]Dr. Nahed Yañez LIPID PROFILEon 07-27-2022 CHOL-HDL RATIO NORM SEE BELOW Normal [facility] Comment on above: Result Comment: 3.3 - 4.4 LOW RISK 4.4 - 7.1 AVERAGE RISK 7.1 - 11.0 MODERATE RISK >11.0 HIGH RISK Performed By: #### M G, LIPID ####[facility] Cveqrjnzdt6506 [place], [place] [address]Mo. Rosemarieashley Yañez Cholesterol [Mass/Vol] 181 mg/dL Normal <=200 [facility] Comment on above: Performed By: #### M G, LIPID ####[facility] Hfouixidqf5480 [place], [place] [address]Se. Nahed Yañez Cholesterol in HDL [Mass/Vol] 87 mg/dL Critically high 40-60 [facility] Comment on above: Performed By: #### Pablo Moore, LIPID ####[facility] Xhgghetdzv8636 [place] [phone]. Nahed Yañez Cholesterol in LDL [Mass/Vol] 78.6 mg/dL Normal [facility] Comment on above: Performed By: #### Pablo Moore, LIPID ####[facility] [facility] Ewltbxpsis[address] [place] [id number]. Rosemarieashley Otilio Cholesterol.total/Chol esterol in HDL [Mass ratio] 2.1 {ratio} Normal [facility] Comment on above: Performed By: #### Pablo Moore, LIPID ####[facility] Fymwhnirco[address] [place] [id number]. Nahed Yañez HDL NORMAL > or = 60 mg/dl - LO W CARDIOVASCULAR RISK <40 mg/dl - HIGH CARDIOVASCULAR RISK Normal [facility] Comment on above: Performed By: #### Pablo Moore, LIPID ####[facility] Swudanaarg9983 [place] [id number]. Nahed Yañez LDL CALC NORMAL SEE BELOW Normal [facility] Comment on above: Result Comment: <100 mg/dl OPTIMAL 100 - 129 mg/dl NEAR OR ABOVE OPTIMAL 130 - 159 mg/dl BORDERLINE HIGH 160 - 189 mg/dl HIGH >190 mg/dl VERY HIGH Performed By: #### M Teresa, LIPID ####[facility] Bdprjqkisp4213 [place] [id number]. Nahed Yañez Triglyceride [Mass/Vol] 77 mg/dL Normal <=150 [facility] Comment on above: Performed By: #### M G, LIPID ####[facility] Uhqloptjob[address] [place] [address]Dr. Nahed Yañez VLDL CALC 15.4 mg/dL Normal [facility] Comment on above: Performed By: #### M G, LIPID ####[facility] Awpohfriha[address] [place] [address]Dr. Nahed Yañez MAGNESIUMon 07-27-2022 Magnesium [Mass/Vol] 1.7 mg/dL Critically low 1.8-2.4 [facility] Comment on above: Performed By: #### M Teresa, LIPID ####[facility] Tmwbnxdoqs[address] [place] [address]Dr. Nahed Yañez POINT OF CARE GLUCOSEon 07-12 Glucose [Mass/Vol] 276 mg/dL Critically high 74-106 [facility] Comment on above: Performed By: #### P OCGLUC ####[facility] Uovzdoswyg[address] [place] [address]Dr. Nahed Yañez Glucose [Mass/Vol] 143 mg/dL Critically high -106 [facility] Comment on above: Performed By: #### P OCGLUC ####[facility] Crjrzjwdqc28[address] [place] [address]Dr. Nahed Yañez Glucose [Mass/Vol] 117 mg/dL Critically high -106 [facility] Comment on above: Performed By: #### P OCGLUC ####[facility] Ustzvuqpsa3[address] [place] [address]Dr. Nahed Yañez PROF CHEM 8 (BAS METB)on Anion gap [Moles/Vol] 11.1 mmol/L Normal [facility] Comment on above: Performed By: #### B MP, HSTROPN ####[facility] Qydsjyjmrz05[address] [place] [address]Dr. Nahed Yañez Calcium [Mass/Vol] 9.6 mg/dL Normal 8.5-10.1 [facility] Comment on above: Performed By: #### B RENZO, HSTROPN ####[facility] Rabztrelzh9327 [place] [id number]. Rosemarieashley Yañez Chloride [Moles/Vol] 99 mmol/L Normal 98-107 [facility] Comment on above: Performed By: #### B RENZO, HSTROPN ####[facility] Ebklsnmtbn0[address] [place] [address]Dr. Rosemarieashley Yañez CO2 [Moles/Vol] 27.8 mmol/L Normal 21.0-32.0 [facility] Comment on above: Performed By: #### B RENZO, HSTROPN ####[facility] Rahhiejzfr[address] [place] [address]Dr. Nahed Yañez Creatinine [Mass/Vol] 0.90 mg/dL Normal 0.55-1.02 [facility] Comment on above: Performed By: #### B RENZO, HSTROPN ####[facility] [address]cpbovrqzx[address] [place], [place] [address]Dr. Nahed Yañez EGFR-AF VENEZUELAN >60 Normal >=60 [facility] Comment on above: Performed By: #### B RENZO, HSTROPN ####[facility] Gbmauxhmti[address] [place], [place] [address]Dr. Nahed Yañez EGFR-NON AF VENEZUELAN >60 Normal >=60 [facility] Comment on above: Performed By: #### B RENZO, HSTROPN ####[facility] Ovsdktchpu[address] [place] [address]Dr. Rosemarieashley Yañez Glucose [Mass/Vol] 133 mg/dL Critically high 74-106 [facility] Comment on above: Performed By: #### B RENZO, HSTROPN ####[facility] Efqqvqtmvh63[address] [place] [address]Dr. Nahed Yañez Potassium [Moles/Vol] 3.9 mmol/L Normal 3.5-5.1 The [facility] Comment on above: Performed By: #### B RENZO, HSTROPN ####[facility] Qwqsdwxuou[address] [place], [place] [address]Dr. Nahed Yañez Sodium [Moles/Vol] 134 mmol/L Critically low 136-145 Th e [facility] Comment on above: Performed By: #### B MP, HSTROPN ####[facility] Crdacihnwn2323 [place] [id number]. Nahed Yañez Urea nitrogen [Mass/Vol] 9.0 mg/dL Normal 7.0-18.0 [facility] Comment on above: Performed By: #### B MP, HSTROPN ####[facility] Rphgfqiamc4[address] [place] [phone]. Nahed Yañez Urea nitrogen/Creatinine [Mass ratio] 10.0 mg/mg Normal The [facility] Comment on above: Performed By: #### B RENZO, HSTROPN ####[facility] Wikxprgsns6308 [place] [id number]. Nahed Yañez TROPONIN, HIGH SENSITIVITYon 07-27-2022 HSTROP 40.7 pg/mL Normal 4.0-51.3 [facility] Comment on above: Result Comment: CUT- OFF POINTS HAVE BEEN ESTABLISHED BASED ON THE [facility] DEFINITIONS OF MYOCARDIALINFARCTION. THE UPPER REFERENCE LIMIT (URL) OF TROPONIN, DEFINED THE 99TH PERCENTILE OFcTnI DISTRIBUTION IN A REFERENCE POPULATION, HAS BEEN CONFIRMED THE DECISION THRESHOLDFOR [place] DIAGNOSIS. Performed By: #### H STROPN ####[facility] Nsairhlsge[address] [place] [address]Dr. Nahed Yañez HSTROP 42.5 pg/mL Normal 4.0-51.3 The [facility] Comment on above: Result Comment: CUT- OFF POINTS HAVE BEEN ESTABLISHED BASED ON THE FOURTH UNIVERSAL DEFINITIONS OF MYOCARDIALINFARCTION. THE UPPER REFERENCE LIMIT (URL) OF TROPONIN, DEFINED THE 99TH PERCENTILE OFcTnI DISTRIBUTION IN A REFERENCE POPULATION, HAS BEEN CONFIRMED THE DECISION THRESHOLDFOR [place] DIAGNOSIS. Performed By: #### H STROPN ####[facility] Bvtpvthyvl[address] [place], [place] [address]Dr. Nahed Yañez HSTROP 50.8 pg/mL Normal 4.0-51.3 The [facility] Comment on above: Result Comment: CUT- OFF POINTS HAVE BEEN ESTABLISHED BASED ON THE FOURTH UNIVERSAL DEFINITIONS OF MYOCARDIALINFARCTION. THE UPPER REFERENCE LIMIT (URL) OF TROPONIN, DEFINED THE 99TH PERCENTILE OFcTnI DISTRIBUTION IN A REFERENCE POPULATION, HAS BEEN CONFIRMED THE DECISION THRESHOLDFOR [place] DIAGNOSIS. Performed By: #### H STROPN ####[facility] Eybygrwiqo3137 [place] [phone]. Nahed Yañez HSTROP 46.3 pg/mL Normal 4.0-51.3 [facility] Comment on above: Result Comment: CUT- OFF POINTS HAVE BEEN ESTABLISHED BASED ON THE FOURTH UNIVERSAL DEFINITIONS OF MYOCARDIALINFARCTION. THE UPPER REFERENCE LIMIT (URL) OF TROPONIN, DEFINED THE 99TH PERCENTILE OFcTnI DISTRIBUTION IN A REFERENCE POPULATION, HAS BEEN CONFIRMED THE DECISION THRESHOLDFOR [place] DIAGNOSIS. Performed By: #### H STROBINH, TSH ####[facility] Gqkfhxgmcy6[address] [place] [address]Dr. Nahed Yañez HSTROP 54.2 pg/mL Critically high 4.0-51.3 [facility] Comment on above: Result Comment: CUT- OFF POINTS HAVE BEEN ESTABLISHED BASED ON THE FOURTH UNIVERSAL DEFINITIONS OF MYOCARDIALINFARCTION. THE UPPER REFERENCE LIMIT (URL) OF TROPONIN, DEFINED THE 99TH PERCENTILE OFcTnI DISTRIBUTION IN A REFERENCE POPULATION, HAS BEEN CONFIRMED THE DECISION THRESHOLDFOR [place] DIAGNOSIS. Performed By: #### B MP, HSTROPN ####[facility] K[address]kkiycvz[address] [place], [place] [address]Dr. Nahed Yañez TSHon 07-27-2022 TSH 1.566 uIU/mL Normal 0.358-3.740 [facility] Comment on above: Performed By: #### H STROBINH, TSH ####[facility] Vgfrpmkisj4623 [place] [phone]. Nahed Yañez URINE MICROSCOPIC ONLYon BACTERIA NONE SEEN Normal NONE SEEN The [facility] Comment on above: Performed By: #### U MICRO, ERUR ####[facility] Ftbosyjrgn280[address] [place] [phone]. Nahed Yañez Bacteria identified Cx Nom (U) NOT INDICATED Normal [facility] Comment on above: Performed By: #### U MICRO, ERUR ####[facility] Mtvvvotryx9973 [place] [address]Dr. Nahed Yañez CAST NONE SEEN Normal NONE SEEN The [facility] Comment on above: Performed By: #### U MICRO, ERUR ####[facility] Txzgghlirx4335 [place] [address]Dr. Nahed Yañez Crystals LM Nom (Urine sed) NONE SEEN Normal NONE SEEN The [facility] Comment on above: Performed By: #### U MICRO, ERUR ####[facility] Kgwwtepsix2[address] [place] [address]Dr. Nahed Yañez Epithelial cells LM Ql (Urine sed) FEW Abnormal NONE SEEN /RARE The [facility] Comment on above: Performed By: #### U MICRO, ERUR ####[facility] Dlvfvwlzwc9045 [place] [address]Dr. Rosemarieashley Yañez MUCOUS NONE SEEN Normal NONE SEEN The [facility] Comment on above: Performed By: #### U MICRO, ERUR ####[facility] Lthgvithck[address] [place], [place] [address]Dr. Nahed Yañez RBC 0-2 Normal 0-2 The [facility] Comment on above: Performed By: #### U MICRO, ERUR ####[facility] Nsf[address]gozh[address] [place], [place] [address]Dr. Nahed Yañez WBC NONE SEEN Normal NONE SEEN The [facility] Comment on above: Performed By: #### U MICRO, ERUR ####[facility] Nbnikyypiu[address] [place], [place] [address]Dr. Nahed Yañez XR CHEST 1 Von 07-27-2022 XR CHEST 1 V Normal [facility] INSULINon 05-09-2022 Insulin 21.1 uIU/mL Normal 2.6-24.9 [facility] Comment on above: Performed By: #### I NSULIN ####[facility] Zcerckornj[address] [place], [place] [address]Dr. Nahed Yañez BNPon 05-08-2022 Natriuretic peptide B (Bld) [Mass/Vol] 58.0 pg/mL Normal <=900.0 The [facility] Comment on above: Performed By: #### B SUPERVISOR PLATE FORMING, LIPID, T7, TSH, CMP ####[facility] Kcigthwmsx6535 [place] [phone]. Nahed Yañez CBC AUTO DIFFon 05-08-2022 BASO # 0.0 103/ul Normal 0.0-0.1 [facility] Comment on above: Performed By: #### C BC ####[facility] Yfugvhkiqg9182 [place] [phone]. Rosemarieashley Yañez Basophils/100 WBC (Bld) 0.4 % Normal 0.2-2.0 [facility] Comment on above: Performed By: #### C BC ####[facility] Jmzkmtxkrs1016 [place] [phone]. Rosemarieashley Yañez EO # 0.3 103/ul Normal 0.0-0.7 [facility] Comment on above: Performed By: #### C BC ####[facility] Vwetttyeqs5783 [place] [address]Dr. Nahed Yañez Eosinophils/100 WBC (Bld) 4.2 % Normal 0.9-7.0 The [facility] Comment on above: Performed By: #### C BC ####[facility] [address]izrdrl[address] [place], [place] [address]Dr. Nahed Yañez Erythrocyte distribution width (RBC) [Ratio] 14.0 % Normal 11.0-15.0 [facility] Comment on above: Performed By: #### C BC ####[facility] K[address]fulq[address] [place], [place] [address]Dr. Nahed Yañez Hematocrit (Bld) [Volume fraction] 43.8 % Normal 36.0-48.0 [facility] Comment on above: Performed By: #### C BC ####[facility] Sktypsaplt[address] [place], [place] [address]Dr. Nahed Yañez Hemoglobin (Bld) [Mass/Vol] 13.9 g/dL Normal 12.0-16.0 [facility] Comment on above: Performed By: #### C BC ####[facility] Qhwrikehvk[address] [place], [place] [address]Dr. Nahed Yañez IG # 0.01 10e3/ul Normal 0.00-0.03 [facility] Comment on above: Performed By: #### C BC ####[facility] Zecezvkyji4042 [place] [phone]. Rosemarieashley Yañez IG % 0.1 % Normal 0.0-0.5 [facility] Comment on above: Performed By: #### C BC ####[facility] Gbztpkphpl1424 [place] [phone]. Rosemarieashley Yañez LYMPH # 2.8 103/ul Normal 1.2-3.8 The [facility] Comment on above: Performed By: #### C BC ####[facility] Vbyjbcxixb7404 [place] [address]Dr. Rosemarieashley Yañez Lymphocytes/100 WBC (Bld) 37.6 % Normal 20.5-60.0 [facility] Comment on above: Performed By: #### C BC ####[facility] Onvojrbhes[address] [place], [place] [address]Dr. Nahed Yañez MANUAL DIFF REQ NO Normal [facility] Comment on above: Performed By: #### C BC ####[facility] Ykyplzefbb2380 [place] [phone]. Nahed Otilio MCH (RBC) [Entitic mass] 28.4 pg Normal 26.7-34.0 [facility] Comment on above: Performed By: #### C BC ####[facility] Uazsvlwofk6340 [place] [address]Dr. Rosemarieashley Yañez MCHC (RBC) [Mass/Vol] 31.7 g/dL Normal 29.9-35.2 The [facility] Comment on above: Performed By: #### C BC ####[facility] Dftxdzdxds1737 [place] [address]Dr. Rosemarieashley Yañez MCV (RBC) [Entitic vol] 89.6 fL Normal 81.0-99.0 The [facility] Comment on above: Performed By: #### C BC ####[facility] Krimohrfvm[address] [place], [place] [address]Dr. Nahed Yañez MONO # 0.5 103/ul Normal 0.3-0.8 [facility] Comment on above: Performed By: #### C BC ####[facility] Wtswyrouyw4564 [place] [phone]. Nahed Yañez Monocytes/100 WBC (Bld) 6.8 % Normal 1.7-12.0 [facility] Comment on above: Performed By: #### C BC ####[facility] Ohjsnhufpd4061 [place] [phone]. Nahed Yañez NEUT # 3.7 103/ul Normal 1.4-6.5 [facility] Comment on above: Performed By: #### C BC ####[facility] Abqjelicrr3646 [place] [phone]. Nahed Yañez Neutrophils/100 WBC (Bld) 50.9 % Normal 43.0-75.0 The [facility] Comment on above: Performed By: #### C BC ####[facility] Wnmvsatgvo4854 [place] [phone]. Nahed Yañez Platelet mean volume (Bld) [Entitic vol] 9.8 fL Normal 9.5-13.5 The [facility] Comment on above: Performed By: #### C BC ####[facility] Ddigcedbhf7323 [place] [phone]. Nahed Yañez PLT 306 103/ul Normal 150-450 [facility] Comment on above: Performed By: #### C BC ####[facility] Pdocmkousc0705 [place] [phone]. Nahed Yañez RBC 4.89 106/ul Normal 4.20-5.40 The [facility] Comment on above: Performed By: #### C BC ####[facility] Avigrvkujl0246 [place] [phone]. Nahed Yañez WBC 7.3 103/ul Normal 4.0-11.0 The [facility] Comment on above: Performed By: #### C BC ####[facility] Fasfdhfval7771 [place] [phone]. Nahed Yañez FREE THYROXINE INDEX T7on FTI 2.92 Normal 1.30-4.50 The [facility] Comment on above: Performed By: #### B SUPERVISOR PLATE FORMING, LIPID, T7, TSH, CMP ####[facility] Srawzwuubu8602 [place] [phone]. Nahed Yañez T3U 34.0 % Normal 30.0-39.0 [facility] Comment on above: Performed By: #### B SUPERVISOR PLATE FORMING, LIPID, T7, TSH, CMP ####[facility] Txvijbzley7548 [place] [phone]. Nahed Yañez T4 [Mass/Vol] 8.60 ug/dL Normal 4.80-13.90 [facility] Comment on above: Performed By: #### B SUPERVISOR PLATE FORMING, LIPID, T7, TSH, CMP ####[facility] Pucrinexjh8661 [place] [phone]. Nahed Yañez GLYCOHEMOGLOBIN A1Con 2021 ADA RECOMMENDATION SEE BELOW Normal [facility] Comment on above: Result Comment: ADA RECOMMENDED LIMIT 4.0 - 6.0 ADA THERAPEUTIC TARGET < 7.0 ACTION SUGGESTED > 7.0 Performed By: #### A 1C ####[facility] Uwwdibbrfg8[address] [place] [address]Dr. Nahed Yañez Glucose [Mass/Vol] 146 mg/dL Normal [facility] Comment on above: Performed By: #### A 1C ####[facility] Duhbldlwwq5217 [place] [address]Dr. Nahed Yañez HbA1c (Bld) [Mass fraction] 6.7 % Critically high 4.5-6.2 [facility] Comment on above: Performed By: #### A 1C ####[facility] Jwpvmvwlww10[address] [place] [address]Dr. Nahed Yañez IRONon 05-08-2022 Iron [Mass/Vol] 76.0 ug/dL Normal 50.0-170.0 [facility] Comment on above: Performed By: #### V ITAD, IRON ####[facility] Pynsjnreox7855 [place] [phone]. Nahed Yañez LIPID PROFILEon 05-08-2022 CHOL-HDL RATIO NORM SEE BELOW Normal [facility] Comment on above: Result Comment: 3.3 - 4.4 LOW RISK 4.4 - 7.1 AVERAGE RISK 7.1 - 11.0 MODERATE RISK >11.0 HIGH RISK Performed By: #### B SUPERVISOR PLATE FORMING, LIPID, T7, TSH, CMP ####[facility] Afezvurdat0103 [place] [phone]. Nahed Yañez Cholesterol [Mass/Vol] 167 mg/dL Normal <=200 Th e [facility] Comment on above: Performed By: #### B SUPERVISOR PLATE FORMING, LIPID, T7, TSH, CMP ####[facility] Caneocucee8174 [place] [phone]. Nahed Yañez Cholesterol in HDL [Mass/Vol] 63 mg/dL Critically high 40-60 [facility] Comment on above: Performed By: #### B SUPERVISOR PLATE FORMING, LIPID, T7, TSH, CMP ####[facility] Ounbswscvj9944 [place] [address]Dr. Nahed Yañez Cholesterol in LDL [Mass/Vol] 72.6 mg/dL Normal [facility] Comment on above: Performed By: #### B SUPERVISOR PLATE FORMING, LIPID, T7, TSH, CMP ####[facility] Baammqqbrr5709 [place] [phone]. Nahed Yañez Cholesterol.total/Chol esterol in HDL [Mass ratio] 2.7 {ratio} Normal [facility] Comment on above: Performed By: #### B SUPERVISOR PLATE FORMING, LIPID, T7, TSH, CMP ####[facility] Rxfbliiaqf2079 [place] [phone]. Nahed Yañez HDL NORMAL > or = 60 mg/dl - LO W CARDIOVASCULAR RISK <40 mg/dl - HIGH CARDIOVASCULAR RISK Normal [facility] Comment on above: Performed By: #### B SUPERVISOR PLATE FORMING, LIPID, T7, TSH, CMP ####[facility] Dedwxgzpkp6775 [place] [phone]. Nahed Yañez LDL CALC NORMAL SEE BELOW Normal [facility] Comment on above: Result Comment: <100 mg/dl OPTIMAL 100 - 129 mg/dl NEAR OR ABOVE OPTIMAL 130 - 159 mg/dl BORDERLINE HIGH 160 - 189 mg/dl HIGH >190 mg/dl VERY HIGH Performed By: #### B SUPERVISOR PLATE FORMING, LIPID, T7, TSH, CMP ####[facility] Loxnwfwaeq8965 [place] [phone]. Nahed Yañez Triglyceride [Mass/Vol] 157 mg/dL Critically high <=150 [facility] Comment on above: Performed By: #### B SUPERVISOR PLATE FORMING, LIPID, T7, TSH, CMP ####[facility] Iwrfaeipth5292 [place] [address]Dr. Nahed Yañez VLDL CALC 31.4 mg/dL Normal [facility] Comment on above: Performed By: #### B SUPERVISOR PLATE FORMING, LIPID, T7, TSH, CMP ####[facility] Tfpxehzgao8064 [place] [address]Dr. Nahed Yañez OCC BLD IMMUNO SCREENon 04-14 OCCULT BLOOD Negative Normal NEGATIVE [facility] Comment on above: Performed By: #### O BSCRN ####[facility] Lylmectist8947 [place] [address]Dr. Nahed Yañez PROF 14(COMP METB)on 022 Albumin [Mass/Vol] 3.7 g/dL Normal 3.4-5.0 [facility] Comment on above: Performed By: #### B SUPERVISOR PLATE FORMING, LIPID, T7, TSH, CMP ####[facility] Qtevdjstod3400 [place] [address]Dr. Nahed Yañez Albumin/Globulin [Mass ratio] 0.9 {ratio} Normal [facility] Comment on above: Performed By: #### B SUPERVISOR PLATE FORMING, LIPID, T7, TSH, CMP ####[facility] Qfwpsaachb6[address] [place] [address]Dr. Nahed Yañez ALP [Catalytic activity/Vol] 99 U/L Normal 46-116 The [facility] Comment on above: Performed By: #### B SUPERVISOR PLATE FORMING, LIPID, T7, TSH, CMP ####[facility] Wsagzedkfm0922 [place] [address]Dr. Nahed Yañez ALT [Catalytic activity/Vol] 20 U/L Normal 14-59 [facility] Comment on above: Performed By: #### B SUPERVISOR PLATE FORMING, LIPID, T7, TSH, CMP ####[facility] Lldrehczyd1571 [place] [address]Dr. Nahed Yañez Anion gap [Moles/Vol] 10.6 mmol/L Normal [facility] Comment on above: Performed By: #### B SUPERVISOR PLATE FORMING, LIPID, T7, TSH, CMP ####[facility] Ioucfgcfqk6118 [place] [address]Dr. Nahed Yañez AST [Catalytic activity/Vol] 29 U/L Normal 15-37 [facility] Comment on above: Performed By: #### B SUPERVISOR PLATE FORMING, LIPID, T7, TSH, CMP ####[facility] Wtnlwdkefk9823 [place] [address]Dr. Nahed Yañez Bilirubin [Mass/Vol] 0.4 mg/dL Normal 0.2-1.0 [facility] Comment on above: Performed By: #### B SUPERVISOR PLATE FORMING, LIPID, T7, TSH, CMP ####[facility] V[address]azqqxkf[address] [place], [place] [address]Dr. Nahed Yañez Calcium [Mass/Vol] 9.3 mg/dL Normal 8.5-10.1 [facility] Comment on above: Performed By: #### B SUPERVISOR PLATE FORMING, LIPID, T7, TSH, CMP ####[facility] Dgnctsqrsm[address] [place], [place] [address]Dr. Nahed Yañez Chloride [Moles/Vol] 100 mmol/L Normal 98-107 [facility] Comment on above: Performed By: #### B SUPERVISOR PLATE FORMING, LIPID, T7, TSH, CMP ####[facility] Sezpqxwqcm[address] [place], [place] [address]Dr. Nahed Yañez CO2 [Moles/Vol] 31.4 mmol/L Normal 21.0-32.0 [facility] Comment on above: Performed By: #### B SUPERVISOR PLATE FORMING, LIPID, T7, TSH, CMP ####[facility] Kdtjmzpzgy[address] [place], [place] [address]Dr. Nahed Yañez Creatinine [Mass/Vol] 1.01 mg/dL Normal 0.55-1.02 [facility] Comment on above: Performed By: #### B SUPERVISOR PLATE FORMING, LIPID, T7, TSH, CMP ####[facility] Kkehamnjpp[address] [place], [place] [address]Dr. Nahed Yañez EGFR-AF VENEZUELAN >60 Normal >=60 [facility] Comment on above: Performed By: #### B SUPERVISOR PLATE FORMING, LIPID, T7, TSH, CMP ####[facility] Uxzhzldmgf[address] [place], [place] [address]Dr. Nahed Yañez EGFR-NON AF VENEZUELAN 56 mL/min/1.73m2 Critically low >=60 [facility] Comment on above: Performed By: #### B SUPERVISOR PLATE FORMING, LIPID, T7, TSH, CMP ####[facility] Muuskblmxl[address] [place], [place] [address]Dr. Nahed Yañez Globulin (S) [Mass/Vol] 3.9 g/dL Normal [facility] Comment on above: Performed By: #### B SUPERVISOR PLATE FORMING, LIPID, T7, TSH, CMP ####[facility] Vszvpflzaq[address] [place], [place] [address]Dr. Nahed Yañez Glucose [Mass/Vol] 111 mg/dL Critically high 74-106 [facility] Comment on above: Performed By: #### B SUPERVISOR PLATE FORMING, LIPID, T7, TSH, CMP ####[facility] Caqadfpcvf[address] [place], [place] [address]Dr. Nahed Yañez Potassium [Moles/Vol] 4.0 mmol/L Normal 3.5-5.1 [facility] Comment on above: Performed By: #### B SUPERVISOR PLATE FORMING, LIPID, T7, TSH, CMP ####[facility] Oejtkrfnhg[address] [place], [place] [address]Dr. Nahed Yañez Protein [Mass/Vol] 7.6 g/dL Normal 6.4-8.[address] [facility] Comment on above: Performed By: #### B SUPERVISOR PLATE FORMING, LIPID, T7, TSH, CMP ####[facility] Xxkzwqrosm[address] [place], [place] [address]Dr. Nahed Yañez Sodium [Moles/Vol] 138 mmol/L Normal 136-[address] [facility] Comment on above: Performed By: #### B SUPERVISOR PLATE FORMING, LIPID, T7, TSH, CMP ####[facility] [address]zxbydbvid[address] [place], [place] [address]Dr. Nahed Yañez Urea nitrogen [Mass/Vol] 17.0 mg/dL Normal 7.0-18.0 [facility] Comment on above: Performed By: #### B SUPERVISOR PLATE FORMING, LIPID, T7, TSH, CMP ####[facility] Tcpfjjwnsg44[address] [place] [id number]. Nahed Yañez Urea nitrogen/Creatinine [Mass ratio] 16.8 mg/mg Normal [facility] Comment on above: Performed By: #### B SUPERVISOR PLATE FORMING, LIPID, T7, TSH, CMP ####[facility] Uyhfkmkyga1701 [place] [id number]. Nahed Yañez TSHon 05-08-2022 TSH 2.835 uIU/mL Normal 0.358-3.740 [facility] Comment on above: Performed By: #### B SUPERVISOR PLATE FORMING, LIPID, T7, TSH, CMP ####[facility] Ldjoacfxop48[address] [place] [address]Dr. Nahed Yañez VITAMIN D 25 OHon 05-08-2022 VIT D 25-OH 13.4 ng/mL Normal [facility] Comment on above: Performed By: #### V GRAEME, IRON ####[facility] Dypmtirrbh[address] [place] [address]Dr. Nahed Yañez VIT D RANGES SEE BELOW Normal [facility] Comment on above: Result Comment: <20 ng/mL Vit D deficient 20 - <30 ng/mL Vit D insufficient 30 - 100 ng/mL Vit D sufficient >100 ng/mL Potential Toxicity Performed By: #### Bianca BEDOLLA, IRON ####[facility] Msvzofpwuf6928 [place] [id number]. Nahed Yañez CARDIAC FRANCISCO 3-6on 2 CK [Catalytic activity/Vol] 37 U/L Normal 26-192 [facility] Comment on above: Performed By: #### C MREP ####[facility] Hujqtpcaoc0472 [place] [id number]. Nahed Yañez CK.MB [Mass/Vol] 0.79 ng/mL Normal <=3.60 [facility] Comment on above: Performed By: #### C MREP ####[facility] Jiscodoytu7171 [place] [id number]. Nahed Yañez HSTROP 55.3 pg/mL Critically high 4.0-51.3 [facility] Comment on above: Result Comment: CUT- OFF POINTS HAVE BEEN ESTABLISHED BASED ON THE FOURTH UNIVERSAL DEFINITIONS OF MYOCARDIALINFARCTION. THE UPPER REFERENCE LIMIT (URL) OF TROPONIN, DEFINED THE 99TH PERCENTILE OFcTnI DISTRIBUTION IN A REFERENCE POPULATION, HAS BEEN CONFIRMED THE DECISION THRESHOLDFOR [place] DIAGNOSIS. Performed By: #### C MREP ####[facility] Pqqqkrtqbu1831 [place] [id number]. Rosemarieashley Yañez CK [Catalytic activity/Vol] 49 U/L Normal 26-192 [facility] Comment on above: Performed By: #### C MREP ####[facility] Qajtvbmsxg2451 [place] [address]Dr. Nahed Yañez CK.MB [Mass/Vol] 0.71 ng/mL Normal <=3.60 [facility] Comment on above: Performed By: #### C MREP ####[facility] Iotnamjnar0504 [place] [address]Dr. Nahed Otilio HSTROP 62.6 pg/mL Critically high 4.0-51.3 [facility] Comment on above: Result Comment: CUT- OFF POINTS HAVE BEEN ESTABLISHED BASED ON THE FOURTH UNIVERSAL DEFINITIONS OF MYOCARDIALINFARCTION. THE UPPER REFERENCE LIMIT (URL) OF TROPONIN, DEFINED THE 99TH PERCENTILE OFcTnI DISTRIBUTION IN A REFERENCE POPULATION, HAS BEEN CONFIRMED THE DECISION THRESHOLDFOR [place] DIAGNOSIS. Performed By: #### C MREP ####[facility] Xetmwazmtl93[address] [place] [address]Dr. Nahed Yañez Covid-19 PCR (CVDTBH)on 01-13 SARS-CoV-2 (COVID-19) RNA MIRNA+probe Ql (Unsp spec) Not detected Normal NOT DETECTED [facility] Comment on above: Result Comment: When [...] for this test is supported by the [place] of Health and Human Service's declaration that [...] longer be used). Performed By: #### C [facility] ####[facility] Tcuumpdjzc0219 [place] [address]Dr. Nahed Yañez ECHO LIMITED STUDYon 022 ECHO LIMITED STUDY Normal The [facility] GLYCOHEMOGLOBIN A1Con 2021 ADA RECOMMENDATION SEE BELOW Normal The [facility] Comment on above: Result Comment: ADA RECOMMENDED LIMIT 4.0 - 6.0 ADA THERAPEUTIC TARGET < 7.0 ACTION SUGGESTED > 7.0 Performed By: #### A 1C ####[facility] Mwzqaswpqc[address] [place], [place] [address]Dr. Nahed Yañez Glucose [Mass/Vol] 140 mg/dL Normal The [facility] Comment on above: Performed By: #### A 1C ####[facility] Laotemjj[address] [place], [place] [address]Dr. Rosemarieashley Yañez HbA1c (Bld) [Mass fraction] 6.5 % Critically high 4.5-6.2 [facility] Comment on above: Performed By: #### A 1C ####[facility] A[address]acztxu[address] [place], [place] [address]Dr. Rosemarieashley Yañez LIPID PROFILEon 01-31-2022 CHOL-HDL RATIO NORM SEE BELOW Normal [facility] Comment on above: Result Comment: 3.3 - 4.4 LOW RISK 4.4 - 7.1 AVERAGE RISK 7.1 - 11.0 MODERATE RISK >11.0 HIGH RISK Performed By: #### L IPID ####[facility] Zxsp[address]hrrm[address] [place], [place] [address]Dr. Nahed Yañez Cholesterol [Mass/Vol] 152 mg/dL Normal <=200 [facility] Comment on above: Performed By: #### L IPID ####[facility] Pbzmmlossn3597 [place] [id number]. Nahed Yañez Cholesterol in HDL [Mass/Vol] 74 mg/dL Critically high 40-60 [facility] Comment on above: Performed By: #### L IPID ####[facility] Bgwqnrttwx7866 [place] [id number]. Nahed Yañez Cholesterol in LDL [Mass/Vol] 62.8 mg/dL Normal [facility] Comment on above: Performed By: #### L IPID ####[facility] Zfwuqxjtfd4149 [place] [id number]. Nahed Yañez Cholesterol.total/Chol esterol in HDL [Mass ratio] 2.1 {ratio} Normal [facility] Comment on above: Performed By: #### L IPID ####[facility] Djuysgkrbr1734 [place] [id number]. Nahed Yañez HDL NORMAL > or = 60 mg/dl - LO W CARDIOVASCULAR RISK <40 mg/dl - HIGH CARDIOVASCULAR RISK Normal [facility] Comment on above: Performed By: #### L IPID ####[facility] Hzuexvmnov[address] [place], [place] [id number]. Nahed Yañez LDL CALC NORMAL SEE BELOW Normal [facility] Comment on above: Result Comment: <100 mg/dl OPTIMAL 100 - 129 mg/dl NEAR OR ABOVE OPTIMAL 130 - 159 mg/dl BORDERLINE HIGH 160 - 189 mg/dl HIGH >190 mg/dl VERY HIGH Performed By: #### L IPID ####[facility] Nwbuqjczll9194 [place] [id number]. Nahed Yañez Triglyceride [Mass/Vol] 76 mg/dL Normal <=150 [facility] Comment on above: Performed By: #### L IPID ####[facility] Ggmhzvnkkr9985 [place] [id number]. Nahed Yañez VLDL CALC 15.2 mg/dL Normal [facility] Comment on above: Performed By: #### L IPID ####[facility] Ebaignozkn0758 [place] [id number]. Nahed Yañez XR CHEST 1 Von 01-31-2022 XR CHEST 1 V Normal [facility] BNPon 01-30-2022 Natriuretic peptide B (Bld) [Mass/Vol] 150.0 pg/mL Normal <=900.0 [facility] Comment on above: Performed By: #### B MP, BNP, CMADM ####[facility] Gryypncrql7680 [place] [id number]. Nahed Yañez CARDIAC FRANCISCO ADMITon 022 CK [Catalytic activity/Vol] 88 U/L Normal 26-192 [facility] Comment on above: Performed By: #### B MP, BNP, CMADM ####[facility] Ebiknvqhlk6032 [place] [address]Dr. Nahed Yañez CK.MB [Mass/Vol] 1.26 ng/mL Normal <=3.60 [facility] Comment on above: Performed By: #### B MP, BNP, CMADM ####[facility] U[address] [place], [place] [address]Dr. Nahed Yañez HSTROP 69.3 pg/mL Critically high 4.0-51.3 [facility] Comment on above: Result Comment: CUT- OFF POINTS HAVE BEEN ESTABLISHED BASED ON THE FOURTH UNIVERSAL DEFINITIONS OF MYOCARDIALINFARCTION. THE UPPER REFERENCE LIMIT (URL) OF TROPONIN, DEFINED THE 99TH PERCENTILE OFcTnI DISTRIBUTION IN A REFERENCE POPULATION, HAS BEEN CONFIRMED THE DECISION THRESHOLDFOR [place] DIAGNOSIS. Performed By: #### B MP, BNP, CMADM ####[facility] Jicfiwucus[address] [place] [address]Dr. Nahed Yañez ANDRE 59 ng/mL Normal 9-82 [facility] Comment on above: Performed By: #### B MP, BNP, CMADM ####[facility] Qodwmdxjrn6922 [place] [address]Dr. Nahed Yañez CBC AUTO DIFFon 01-30-2022 BASO # 0.0 103/ul Normal 0.0-0.1 [facility] Comment on above: Performed By: #### C BC ####[facility] Gcaasjdxmn9256 [place] [address]Dr. Nahed Yañez Basophils/100 WBC (Bld) 0.2 % Normal 0.2-2.0 [facility] Comment on above: Performed By: #### C BC ####[facility] Lijzasgszu[address] [place], [place] [address]Dr. Nahed Yañez EO # 0.1 103/ul Normal 0.0-0.7 [facility] Comment on above: Performed By: #### C BC ####[facility] Lfrmacwodr[address] [place], [place] [address]Dr. Nahed Yañez Eosinophils/100 WBC (Bld) 0.8 % Critically low 0.9-7.0 [facility] Comment on above: Performed By: #### C BC ####[facility] Maywpmloih[address] [place], [place] [address]Dr. Nahed Otilio Erythrocyte distribution width (RBC) [Ratio] 14.9 % Normal 11.0-15.0 [facility] Comment on above: Performed By: #### C BC ####[facility] Xydrwgdgao[address] [place], [place] [address]Dr. Nahed Yañez Hematocrit (Bld) [Volume fraction] 45.8 % Normal 36.0-48.0 [facility] Comment on above: Performed By: #### C BC ####[facility] [address]alhqlyz[address] [place], [place] [address]Dr. Nahed Yañez Hemoglobin (Bld) [Mass/Vol] 14.7 g/dL Normal 12.0-16.0 [facility] Comment on above: Performed By: #### C BC ####[facility] Ylopwjdast[address] [place], [place] [address]Dr. Rosemarieashley Otilio IG # 0.07 10e3/ul Critically high 0.00-0.03 [facility] Comment on above: Performed By: #### C BC ####[facility] Zmkhctrqwa[address] [place], [place] [address]Dr. Nahed Yañez IG % 0.4 % Normal 0.0-0.5 [facility] Comment on above: Performed By: #### C BC ####[facility] G[address]jwpkpl[address] [place], [place] [address]Dr. Nahed Yañez LYMPH # 2.3 103/ul Normal 1.2-3.8 [facility] Comment on above: Performed By: #### C BC ####[facility] Hungmeeglr9612 [place] [address]DrShaun Yañez Lymphocytes/100 WBC (Bld) 12.5 % Critically low 20.5-60.0 [facility] Comment on above: Performed By: #### C BC ####[facility] Zxioamxuws[address] [place], [place] [address]DrShaun Yañez MANUAL DIFF REQ NO Normal [facility] Comment on above: Performed By: #### C BC ####[facility] Ogekcmnzrq8773 [place] [address]DrShaun Yañez MCH (RBC) [Entitic mass] 28.0 pg Normal 26.7-34.0 [facility] Comment on above: Performed By: #### C BC ####[facility] Rcxzrqjhjj[address] [place], [place] [address]DrShaun Yañez MCHC (RBC) [Mass/Vol] 32.1 g/dL Normal 29.9-35.2 [facility] Comment on above: Performed By: #### C BC ####[facility] Iixvxlisao[address] [place], [place] [address]DrShaun Yañez MCV (RBC) [Entitic vol] 87.2 fL Normal 81.0-99.0 [facility] Comment on above: Performed By: #### C BC ####[facility] [address]ldxwpvzx[address] [place], [place] [address]DrShaun Yañez MONO # 0.9 103/ul Critically high 0.3-0.8 [facility] Comment on above: Performed By: #### C BC ####[facility] Valaeejmvp[address] [place], [place] [address]DrShaun Yañez Monocytes/100 WBC (Bld) 5.1 % Normal 1.7-12.0 [facility] Comment on above: Performed By: #### C BC ####[facility] Aooooekjyh[address] [place], [place] [address]DrShaun Yañez NEUT # 14.6 103/ul Critically high 1.4-6.5 [facility] Comment on above: Performed By: #### C BC ####[facility] Nggulqdnpi2326 [place] [address]Dr. Nahed Yañez Neutrophils/100 WBC (Bld) 81.0 % Critically high 43.0-75.0 [facility] Comment on above: Performed By: #### C BC ####[facility] Dpvydszbrp7890 [place] [address]Dr. Nahed Yañez Platelet mean volume (Bld) [Entitic vol] 10.3 fL Normal 9.5-13.5 [facility] Comment on above: Performed By: #### C BC ####[facility] Dqvjmlnbmv9776 [place] [address]Dr. Nahed Yañez PLT 280 103/ul Normal 150-450 [facility] Comment on above: Performed By: #### C BC ####[facility] Wqghkzgzyn3150 [place] [address]Dr. Nahed Yañez RBC 5.25 106/ul Normal 4.20-5.40 [facility] Comment on above: Performed By: #### C BC ####[facility] Qruizicudu4834 [place] [address]Dr. Nahed Yañez WBC 18.1 103/ul Critically high 4.0-11.0 [facility] Comment on above: Performed By: #### C BC ####[facility] Oshtfnfncg6642 [place] [address]Dr. Rosemarieashley Yañez PROF CHEM 8 (BAS METB)on Anion gap [Moles/Vol] 13.5 mmol/L Normal [facility] Comment on above: Performed By: #### B MP, BNP, CMADM ####[facility] Cpkercsouj8907 [place] [address]Dr. Nahed Yañez Calcium [Mass/Vol] 9.5 mg/dL Normal 8.5-10.1 [facility] Comment on above: Performed By: #### B MP, BNP, CMADM ####[facility] Sxuqdrzinf6270 [place] [id number]. Nahed Yañez Chloride [Moles/Vol] 102 mmol/L Normal 98-107 [facility] Comment on above: Performed By: #### B MP, BNP, CMADM ####[facility] Dzpotfqwca8090 [place] [address]Dr. Nahed Yañez CO2 [Moles/Vol] 26.6 mmol/L Normal 21.0-32.0 [facility] Comment on above: Performed By: #### B MP, BNP, CMADM ####[facility] Lvwdcasken1272 [place] [address]Dr. Nahed Yañez Creatinine [Mass/Vol] 1.06 mg/dL Critically high 0.55-1.02 [facility] Comment on above: Performed By: #### B MP, BNP, CMADM ####[facility] Qmralwvzxo0172 [place] [address]Dr. Nahed Otilio EGFR-AF VENEZUELAN >60 Normal >=60 [facility] Comment on above: Performed By: #### B MP, BNP, CMADM ####[facility] Xcfxxefmce2935 [place] [address]Dr. Nahed Yañez EGFR-NON AF VENEZUELAN 53 mL/min/1.73m2 Critically low >=60 [facility] Comment on above: Performed By: #### B MP, BNP, CMADM ####[facility] Fizkdugshs3468 [place] [address]Dr. Nahed Yañez Glucose [Mass/Vol] 108 mg/dL Critically high 74-106 [facility] Comment on above: Performed By: #### B MP, BNP, CMADM ####[facility] Dhdswzrrto8874 [place] [address]Dr. Nahed Yañez Potassium [Moles/Vol] 4.1 mmol/L Normal 3.5-5.1 [facility] Comment on above: Performed By: #### B MP, BNP, CMADM ####[facility] Usirajhhbq5803 [place] [address]Dr. Nahed Yañez Sodium [Moles/Vol] 138 mmol/L Normal 136-145 [facility] Comment on above: Performed By: #### B MP, BNP, CMADM ####[facility] Zyscxqnins5883 [place], [place] [address]Fe. Nahed Yañez Urea nitrogen [Mass/Vol] 9.0 mg/dL Normal 7.0-18.0 [facility] Comment on above: Performed By: #### B MP, BNP, CMADM ####[facility] Yiklivfhsw9231 [place], [place] [address]Pq. Nahed Yañez Urea nitrogen/Creatinine [Mass ratio] 8.5 mg/mg Normal [facility] Comment on above: Performed By: #### B MP, BNP, CMADM ####[facility] Evvpwxupze7952 [place], [place] [address]Xy. Nahed Yañez Cardiovascular Lab Reporton 11-03-2021 Cardiovascular Lab Report [facility] Patient Name: Vivian Vann [facility] MR #: [id number] Physician: Gasper Avendano, Department of M.D. Medicine Service Date: 11/02/2021 Division of Birthdate: 1960 Cardiology Room #: 4A [id number] Adult [facility] [place] [address] Cardiovascular Laboratory Report FINAL IMPRESSIONS: 1. Severe, [...] anterior descending coronary artery, placement of a 6-Yoruba MynxGrip closure device. METHODS: After risks, benefits, and alternatives were explained, written informed consent was obtained. The patient was prepped and draped in usual sterile fashion over both groins. Using 1% lidocaine solution, local infiltration anesthesia was achieved over the right groin. Under ultrasound guidance, a micropuncture kit was used to access the right common femoral artery. This was upsized to a 6-Yoruba 11 cm sheath. Angiography via the 6-Yoruba sheath was performed. Bilateral selective coronary angiography was performed using JL4 and JR4 catheters. After reviewing the images, it was elected to proceed with an interventional procedure. A 6-Yoruba XB3.5 guide catheter was advanced over a [...] artery, angiography was repeated initially using a 6-Yoruba 3DRC catheter and subsequently using a 4-Yoruba JR4 catheter. After administration of intracoronary nitroglycerin, the concerning lesion almost completely resolved. There was a residual mild stenosis. All catheters removed. A 6-Yoruba MynxGrip closure device was deployed per protocol [...] and anatomy suitable for closure device. INDICATION: Ihw-AW-foqjellkg myocardial infarction. Electronically Signed by: Gasper Avendano M.D. 11/21/2021 02:07 P Gasper Avendano M.D (more content not included)... Normal [facility] CBC COMPLETE BLOOD COUNTon 0 - Erythrocyte distribution width (RBC) [Ratio] 14.7 % Normal 11.5-15.0 [facility] Comment on above: Order Comment: No: D o not add to previous draw Performed By: #### 3 7920, 67916 #### [facility] [address] [place] [address], [facility] Hematocrit (Bld) [Volume fraction] 34.5 % Low 36.0-45.0 [facility] Comment on above: Order Comment: No: D o not add to previous draw Performed By: #### 3 6420, 04089 #### [facility] [address] [place] [address], [facility] Hemoglobin (Bld) [Mass/Vol] 10.6 g/dL Low 12.0-15.0 [facility] Comment on above: Order Comment: No: D o not add to previous draw Performed By: #### 3 5800, 56350 #### [facility] [address] MCH (RBC) [Entitic mass] 28.1 pg Normal 27.0-33.0 [facility] Comment on above: Order Comment: No: D o not add to previous draw Performed By: #### 3 5200, 43632 #### [facility] [address] [place] [address], [facility] MCHC (RBC) [Mass/Vol] 30.7 g/dL Low 32.0-35.0 [facility] Comment on above: Order Comment: No: D o not add to previous draw Performed By: #### 3 5199, 87621 #### [facility] [address] [facility] [place] [address], [facility] MCV (RBC) [Entitic vol] 91.5 fL Normal 82.0-98.0 [facility] Comment on above: Order Comment: No: D o not add to previous draw Performed By: #### 3 5199, 06984 #### [facility] [address] [facility] Nucleated RBC/100 WBC (Bld) [Ratio] 0 % Normal 0-0 [facility] Comment on above: Order Comment: No: D o not add to previous draw Performed By: #### 3 5199, 60794 #### [facility] [address] [facility] [place] [address], [facility] PLAT CNT 219 10*3/uL Normal 150-400 [facility] Comment on above: Order Comment: No: D o not add to previous draw Performed By: #### 3 5199, 60466 #### [facility] [address] [facility] [place] [address], [facility] RBC (Bld) [#/Vol] 3.77 10*6/uL Low 3.80-5.00 [facility] Comment on above: Order Comment: No: D o not add to previous draw Performed By: #### 3 5199, 01694 #### [facility] [address] [place] [address], [facility] WBC (Bld) [#/Vol] 13.64 10*3/uL High 4.00-10.60 [facility] Comment on above: Order Comment: No: D o not add to previous draw Performed By: #### 3 5200, 97998 #### [facility] [address] [place] [address], [facility] HEMOGLOBIN A1Con 11-02-2021 Glucose [Moles/Vol] 140 mmol/L Normal [facility] Comment on above: Order Comment: No: D o not add to previous draw Performed By: #### 3 1791 #### [facility] [address] [place] [address], [facility] HbA1c (Bld) [Mass fraction] 6.5 % High 4.0-6.0 [facility] Comment on above: Order Comment: No: D o not add to previous draw Performed By: #### 3 1791 #### [facility] [address] [place] [address], [facility] LIPID PROFILEon 11-02-2021 Cholesterol [Mass/Vol] 171 mg/dL Normal 120-200 Th [facility] Comment on above: Order Comment: No: D o not add to previous draw Result Comment: CHOL ESTEROL REFERENCE RANGE: 20 YEARS AND OLDER CARDIOVASCULAR RISK Less than 200 mg/dl Low Risk 200 to 239 mg/dl Borderline Risk 240 mg/dl and greater High Risk Performed By: #### 3 5200, 92147 #### [facility] [address] [place] [address], [facility] Cholesterol in HDL [Mass/Vol] 57 mg/dL Normal 23-92 [facility] Comment on above: Order Comment: No: D o not add to previous draw Result Comment: Slig ht variation in normal range could be due to gender and/or age. HDL CHOLESTEROL REFERENCE RANGE: 20 years and older Cardiovascular Risk > or =60 mg/dL Desirable 40 TO 59 mg/dL Low Risk <40 mg/dL High Risk Performed By: #### 3 5200, 48140 #### [facility] [address] [place] [address], [facility] Cholesterol in LDL [Mass/Vol] 89 mg/dL Normal 0-130 [facility] Comment on above: Order Comment: No: D o not add to previous draw Result Comment: LDL IS A CALCULATION LDL IS ONLY VALID IF THE TRIG IS LESS THAN 400. Performed By: #### 3 5200, 66190 #### [facility] [address] [place] [address], [facility] Cholesterol.total/Chol esterol in HDL [Mass ratio] 3.0 {ratio} Normal .0-4.5 [facility] Comment on above: Order Comment: No: D o not add to previous draw Performed By: #### 3 5200, 12380 #### [facility] [address] [place] [address], [facility] NON-HDL CHOLESTEROL 114 mg/dL Normal [facility] Comment on above: Order Comment: No: D o not add to previous draw Performed By: #### 3 5200, 78877 #### [facility] [address] [place] [address], [facility] Triglyceride [Mass/Vol] 124 mg/dL Normal 40-149 [facility] Comment on above: Order Comment: No: D o not add to previous draw Result Comment: TRIG LYCERIDE REFERENCE RANGE: 20 YEARS AND OLDER CARDIOVASCULAR RISK LESS THAN 150 mg/dl LOW RISK 150 TO 199 mg/dl BORDERLINE RISK 200 mg/dl AND GREATER HIGH RISK Performed By: #### 3 5200, 46166 #### [facility] [address] [place] [address], [facility] VLDL CHOL 25 mg/dL Normal 0-40 [facility] Comment on above: Order Comment: No: D o not add to previous draw Performed By: #### 3 5200, 23520 #### [facility] [address] [place] [address], [facility] TROPONIN-Ion 11-02-2021 Troponin I.cardiac [Mass/Vol] 0.14 ng/mL Critically high 0.00-0.04 [facility] Comment on above: Result Comment: M-MD EVIOUS CRITICAL RESULT REFERENCE RANGES: 0.00 - 0.04 ng/ml NORMAL 0.05 - 0.50 ng/ml INDETERMINATE > 0.50 ng/ml CONSISTENT WITH AN M.I. Performed By: #### 3 5200, 73763 #### [facility] [address] [place] [address], [facility] Troponin I.cardiac [Mass/Vol] 0.19 ng/mL Critically high 0.00-0.04 [facility] Comment on above: Order Comment: No: D o not add to previous draw Result Comment: M-MD EVIOUS CRITICAL RESULT REFERENCE RANGES: 0.00 - 0.04 ng/ml NORMAL 0.05 - 0.50 ng/ml INDETERMINATE > 0.50 ng/ml CONSISTENT WITH AN M.I. Performed By: #### 3 5200 #### [facility] [address] [place] [address], [facility] TYPE AND SCREENon 11-02-2021 ABO INTERPRETATION O Normal [facility] Comment on above: Performed By: #### 3 5200, 84142 #### [facility] [address] [place] [address], [facility] RH INTERPRETATION Positive Normal [facility] Comment on above: Performed By: #### 3 5200, 98954 #### [facility] [address] [place] [address], [facility] UFH HEPARIN ASSAYon 11-03-19 UNFRACTIONATED HEPARIN 0.76 IU/mL High 0.30-0.70 Th e [facility] Comment on above: Result Comment: [place] roxaban and Apixaban will interfere with the anti Xa assay used to monitor UFH and LMWH. Performed By: #### 3 5200, 22897 #### [facility] [address] [place], [address] UNFRACTIONATED HEPARIN 0.96 IU/mL Critically high 0.30-0.7 0 [facility] Comment on above: Result Comment: Resu lt checked and called. Accurately read back by Kathy Suárez RN at 0548 Rivaroxaban and Apixaban will interfere with the anti Xa assay used to monitor UFH and LMWH. Performed By: #### 3 0477 #### [facility] [address] [facility] [address] APTTon 11-01-2021 aPTT Coag (Bld) [Time] 28.6 s Normal 25.0-35.0 Th e [facility] Comment on above: Order Comment: No: D [...] THIS PURPOSE. Performed By: #### 3 5200, 08904 #### [facility] [address] [facility] [address], [facility] BNPon 11-01-2021 Natriuretic peptide B (Bld) [Mass/Vol] 9643.0 pg/mL Critically high <=900.0 [facility] Comment on above: Performed By: #### C MP, BNP, HSTROPN ####[facility] [address] [place], [place] [address]OwShaun Nahed Otilio BNP (B-TYPE NATRIURETIC PEPT AYLEEN)on 11-01-2021 Natriuretic peptide B (Bld) [Mass/Vol] 768 pg/mL High 0-100 [facility] Comment on above: Order Comment: No: D o not add to previous draw Result Comment: Give n the appropriate clinical setting a BNP result of >100 pg/mL indicates congestive heart failure. Performed By: #### 8 5123 #### [facility] [address] [facility] [address], [facility] CBC AUTO DIFFon 11-01-2021 BASO # 0.0 103/ul Normal 0.0-0.1 The [facility] Comment on above: Performed By: #### C BC ####[facility] [address] [place], [place] [address]Dr. Nahed Yañez Basophils/100 WBC (Bld) 0.1 % Critically low 0.2-2.0 The [facility] Comment on above: Performed By: #### C BC ####[facility] [address] [place], [place] [address]Dr. Nahed Yañez EO # 0.0 103/ul Normal 0.0-0.7 The [facility] Comment on above: Performed By: #### C BC ####[facility] M[address]nsq[address] [place], [place] [address]Dr. Nahed Yañez Eosinophils/100 WBC (Bld) 0.0 % Critically low 0.9-7.0 [facility] Comment on above: Performed By: #### C BC ####[facility] Z[address] [place], [place] [address]Dr. Nahed Yañez Erythrocyte distribution width (RBC) [Ratio] 14.7 % Normal 11.0-15.0 [facility] Comment on above: Performed By: #### C BC ####[facility] [address] [place], [place] [address]Dr. Nahed Yañez Hematocrit (Bld) [Volume fraction] 36.1 % Normal 36.0-48.0 [facility] Comment on above: Performed By: #### C BC ####[facility] Lisenvxjux[address] [place], [place] [address]Dr. Nahed Yañez Hemoglobin (Bld) [Mass/Vol] 11.1 g/dL Critically low 12.0-16.0 The [facility] Comment on above: Result Comment: IV a ntibiotics Performed By: #### C BC ####[facility] [address]vt[address] [place], [place] [address]Dr. Nahed Yañez IG # 0.09 10e3/ul Critically high 0.00-0.03 [facility] Comment on above: Performed By: #### C BC ####[facility] [address] [place] [id number]. Nahed Yañez IG % 0.7 % Critically high 0.0-0.5 [facility] Comment on above: Performed By: #### C BC ####[facility] [address] [place], [place] [address]Fn. Nahed Yañez LYMPH # 0.6 103/ul Critically low 1.2-3.8 The [facility] Comment on above: Performed By: #### C BC ####[facility] Tif[address]umxr[address] [place] [id number]. Nahed Yañez Lymphocytes/100 WBC (Bld) 4.8 % Critically low 20.5-60.0 The [facility] Comment on above: Performed By: #### C BC ####[facility] Tjucxhbitl[address] [place] [id number]. Nahed Yañez MANUAL DIFF REQ NO Normal [facility] Comment on above: Performed By: #### C BC ####[facility] Djxmjrthil3138 [place] [id number]. Nahed Yañez MCH (RBC) [Entitic mass] 28.2 pg Normal 26.7-34.0 [facility] Comment on above: Performed By: #### C BC ####[facility] Bxpwngwomt9245 [place] [id number]. Nahed Yañez MCHC (RBC) [Mass/Vol] 30.7 g/dL Normal 29.9-35.2 [facility] Comment on above: Performed By: #### C BC ####[facility] Xvoqeivcxe[address] [place] [id number]. Nahed Yañez MCV (RBC) [Entitic vol] 91.9 fL Normal 81.0-99.0 [facility] Comment on above: Performed By: #### C BC ####[facility] Rirpjch[address] [place] [id number]. Nahed Yañez MONO # 0.2 103/ul Critically low 0.3-0.8 The [facility] Comment on above: Performed By: #### C BC ####[facility] Aaxcwbmsjq2337 [place] [id number]. Nahed Yañez Monocytes/100 WBC (Bld) 1.7 % Normal 1.7-12.0 [facility] Comment on above: Performed By: #### C BC ####[facility] Dkjpldeeed7214 [place] [id number]. Nahed Yañez NEUT # 11.2 103/ul Critically high 1.4-6.5 The [facility] Comment on above: Performed By: #### C BC ####[facility] Vvsvpkvemh3673 [place] [id number]. Nahed Yañez Neutrophils/100 WBC (Bld) 92.7 % Critically high 43.0-75.0 The [facility] Comment on above: Performed By: #### C BC ####[facility] Kyycymajqn2312 [place] [id number]. Nahed Yañez Platelet mean volume (Bld) [Entitic vol] 11.1 fL Normal 9.5-13.5 The [facility] Comment on above: Performed By: #### C BC ####[facility] Ybimknwtsg2904 [place] [id number]. Nahed Yañez PLT 213 103/ul Normal 150-450 [facility] Comment on above: Performed By: #### C BC ####[facility] Gbqjvvwmdl5821 [place] [id number]. Nahed Yañez RBC 3.93 106/ul Critically low 4.20-5.40 [facility] Comment on above: Performed By: #### C BC ####[facility] Apvjfmvvtx8883 [place] [id number]. Nahed Yañez WBC 12.0 103/ul Critically high 4.0-11.0 The [facility] Comment on above: Performed By: #### C BC ####[facility] Xkcxullvxt9206 [place] [id number]. Nahed Yañez CBC W/DIFFon 11-01-2021 ABS IMM GRANS 0.2 10*3/uL Normal 0.0-0.2 [facility] Comment on above: Order Comment: No: D o not add to previous draw Performed By: #### 3 5200, 41409 #### [facility] [address] [place] [address], [facility] ABS NEUTROPHILS 12.5 10*3/uL High 1.6-7.6 [facility] Comment on above: Order Comment: No: D o not add to previous draw Performed By: #### 3 5199, 85481 #### [facility] [address] [place] [address], [place] Basophils (Bld) [#/Vol] 0.0 10*3/uL Normal 0.0-0.2 [facility] Comment on above: Order Comment: No: D o not add to previous draw Performed By: #### 3 520, 02018 #### [facility] [address] [place] [address], [place] Basophils/100 WBC (Bld) 0.0 % Normal 0.0-1.0 [facility] Comment on above: Order Comment: No: D o not add to previous draw Performed By: #### 3 5199, 37831 #### [facility] [address] [place] [address], [place] Eosinophils (Bld) [#/Vol] 0.0 10*3/uL Normal 0.0-0.5 [facility] Comment on above: Order Comment: No: D o not add to previous draw Performed By: #### 3 0, 26903 #### [facility] [address] [place] [address], [place] Eosinophils/100 WBC (Bld) 0.0 % Normal 0.0-6.0 [facility] Comment on above: Order Comment: No: D o not add to previous draw Performed By: #### 3 520, 37539 #### [facility] [address] [place] [address], [place] Erythrocyte distribution width (RBC) [Ratio] 14.6 % Normal 11.5-15.0 [facility] Comment on above: Order Comment: No: D o not add to previous draw Performed By: #### 3 0, 56444 #### [facility] [address] [place] [address], [facility] Hematocrit (Bld) [Volume fraction] 36.6 % Normal 36.0-45.0 [facility] Comment on above: Order Comment: No: D o not add to previous draw Performed By: #### 3 5199, 51189 #### [facility] [address] [place] [address], [facility] Hemoglobin (Bld) [Mass/Vol] 11.4 g/dL Low 12.0-15.0 [facility] Comment on above: Order Comment: No: D o not add to previous draw Performed By: #### 3 5199, 86954 #### [facility] [address] [place] [address], [facility] IMMATURE GRANS 1.2 % High 0.0-1.0 [facility] Comment on above: Order Comment: No: D o not add to previous draw Performed By: #### 3 5199, 08351 #### [facility] [address] [place] [address], [facility] Lymphocytes (Bld) [#/Vol] 0.6 10*3/uL Low 1.2-4.0 [facility] Comment on above: Order Comment: No: D o not add to previous draw Performed By: #### 3 5199, 17463 #### [facility] [address] [place] [id number], [place] Lymphocytes/100 WBC (Bld) 4.2 % Low 20.0-45.0 [facility] Comment on above: Order Comment: No: D o not add to previous draw Performed By: #### 3 5199, 97507 #### [facility] [address] [place] MCH (RBC) [Entitic mass] 28.2 pg Normal 27.0-33.0 [facility] Comment on above: Order Comment: No: D o not add to previous draw Performed By: #### 3 5200, 61872 #### [facility] [address] [place] [address], [facility] MCHC (RBC) [Mass/Vol] 31.1 g/dL Low 32.0-35.0 [facility] Comment on above: Order Comment: No: D o not add to previous draw Performed By: #### 3 0, 41206 #### [facility] [address] [place] [address], [facility] MCV (RBC) [Entitic vol] 90.6 fL Normal 82.0-98.0 [facility] Comment on above: Order Comment: No: D o not add to previous draw Performed By: #### 3 5199, 70862 #### [facility] [address] [place] [address], [facility] Monocytes (Bld) [#/Vol] 0.5 10*3/uL Normal 0.1-1.0 [facility] Comment on above: Order Comment: No: D o not add to previous draw Performed By: #### 3 5199, 56355 #### [facility] [address] [place] [address], [facility] MONOS 3.3 % Low 5.0-12.0 [facility] Comment on above: Order Comment: No: D o not add to previous draw Performed By: #### 3 0, 78953 #### [facility] [address] [place] [id number], [facility] Neutrophils/100 WBC (Bld) 91.3 % High 40.0-72.0 [facility] Comment on above: Order Comment: No: D o not add to previous draw Performed By: #### 3 5199, 52578 #### [facility] [address] [place] [address], [facility] Nucleated RBC/100 WBC (Bld) [Ratio] 0 % Normal 0-0 [facility] Comment on above: Order Comment: No: D o not add to previous draw Performed By: #### 3 5200, 31086 #### [facility] [address] [place] [address], [facility] PLAT CNT 224 10*3/uL Normal 150-400 [facility] Comment on above: Order Comment: No: D o not add to previous draw Performed By: #### 3 5200, 27161 #### [facility] [address] [facility] [place] [address], [facility] RBC (Bld) [#/Vol] 4.04 10*6/uL Normal 3.80-5.00 [facility] Comment on above: Order Comment: No: D o not add to previous draw Performed By: #### 3 5200, 06303 #### [facility] [address] [facility] [place] [address], [facility] WBC (Bld) [#/Vol] 13.70 10*3/uL High 4.00-10.60 [facility] Comment on above: Order Comment: No: D o not add to previous draw Performed By: #### 3 5200, 06045 #### [facility] [address] [facility] [place] [address], [facility] COMP METABOLIC PANELon 11-01 Albumin [Mass/Vol] 3.7 g/dL Normal 3.5-5.7 [facility] Comment on above: Order Comment: No: D o not add to previous draw Performed By: #### 0 0121, 32498, 51715 #### [facility] [address] [place] [id number], [facility] ALKALINE PHOSPH 54 IU/L Normal 34-104 [facility] Comment on above: Order Comment: No: D o not add to previous draw Performed By: #### 0 0121, 95527, 36222 #### [facility] [address] [place] [address], [place] ALT [Catalytic activity/Vol] 12 U/L Normal 7-52 [facility] Comment on above: Order Comment: No: D o not add to previous draw Performed By: #### 0 0121, 79196, 73288 #### [facility] [address] [place] [address], [place] AST [Catalytic activity/Vol] 17 U/L Normal 13-39 [facility] Comment on above: Order Comment: No: D o not add to previous draw Performed By: #### 0 0121, 69528, 73930 #### [facility] [address] [place] [address], [place] Bilirubin [Mass/Vol] 0.3 mg/dL Normal 0.3-1.0 [facility] Comment on above: Order Comment: No: D o not add to previous draw Performed By: #### 0 0121, 67226, 44861 #### [facility] [address] [place] [address], [place] Calcium [Mass/Vol] 9.4 mg/dL Normal 8.6-10.3 [facility] Comment on above: Order Comment: No: D o not add to previous draw Performed By: #### 0 0121, 33273, 42160 #### [facility] [address] [place] [address], [place] Chloride [Moles/Vol] 100 mmol/L Normal 98-107 [facility] Comment on above: Order Comment: No: D o not add to previous draw Performed By: #### 0 0121, 13414, 00572 #### [facility] [address] [place] [address], [place] CO2 [Moles/Vol] 29 mmol/L Normal 21-31 [facility] Comment on above: Order Comment: No: D o not add to previous draw Performed By: #### 0 0121, 96236, 65800 #### [facility] [address] [place] [address], [place] Creatinine [Mass/Vol] 1.04 mg/dL Normal 0.60-1.20 [facility] Comment on above: Order Comment: No: D o not add to previous draw Performed By: #### 0 0121, 32771, 15214 #### [facility] [address] [place] [address], [place] eGFR- non- 54 ml/min/1.73sq m Abnormal >60 [facility] Comment on above: Order Comment: No: D o not add to previous draw Performed By: #### 0 0121, , 68041 #### [facility] [address] [place] [address], [place] GFR/1.73 sq M.predicted among blacks MDRD (S/P/Bld) [Vol rate/Area] mL/min/{1.73_m2} Normal >60 [facility] Comment on above: Order Comment: No: D o not add to previous draw Performed By: #### 0 0121, , 20500 #### [facility] [address] [place] [address], [place] Glucose [Mass/Vol] 239 mg/dL High 70-100 [facility] Comment on above: Order Comment: No: D o not add to previous draw Performed By: #### 0 0121, , 46445 #### [facility] [address] [place] [address], [place] Potassium [Moles/Vol] 4.3 mmol/L Normal 3.5-5.1 [facility] Comment on above: Order Comment: No: D o not add to previous draw Performed By: #### 0 0121, 32842, 35054 #### [facility] [address] [place] [address], [place] Protein [Mass/Vol] 5.6 g/dL Low 6.0-8.3 [facility] Comment on above: Order Comment: No: D o not add to previous draw Performed By: #### 0 0121, 31765, 35848 #### [facility] [address] [place] [address], [facility] Sodium [Moles/Vol] 139 mmol/L Normal 136-145 [facility] Comment on above: Order Comment: No: D o not add to previous draw Performed By: #### 0 0121, 26441, 25908 #### [facility] [address] [place] [address], [facility] Urea nitrogen [Mass/Vol] 24 mg/dL Normal 7-25 [facility] Comment on above: Order Comment: No: D o not add to previous draw Performed By: #### 0 0121, 04139, 06928 #### [facility] [address] [facility] [place] [address], [facility] MAGNESIUM BLOODon 11-01-2021 Magnesium [Mass/Vol] 2.0 mg/dL Normal 1.9-2.7 [facility] Comment on above: Order Comment: No: D o not add to previous draw Performed By: #### 0 0121, 96011, 05286 #### [facility] [address] [facility] [place] [address], [facility] PROF 14(COMP METB)on 022 Albumin [Mass/Vol] 3.1 g/dL Critically low 3.4-5.0 [facility] Comment on above: Performed By: #### C MP, BNP, HSTROPN ####[facility] Tau[address] [place], [place] [address]MnShaun Yañez Albumin/Globulin [Mass ratio] 1.0 {ratio} Normal [facility] Comment on above: Performed By: #### C MP, BNP, HSTROPN ####[facility] Xrnff[address]xur7216 [place], [place] [address]RaShaun Yañez ALP [Catalytic activity/Vol] 56 U/L Normal 46-116 [facility] Comment on above: Performed By: #### C MP, BNP, HSTROPN ####[facility] [address]ty[address] [place] [address]Dr. Nahed Yañez ALT [Catalytic activity/Vol] 19 U/L Normal 14-59 [facility] Comment on above: Performed By: #### C MP, BNP, HSTROPN ####[facility] [address]ilvft[address]ib[address] [place] [address]Dr. Nahed Yañez Anion gap [Moles/Vol] 14.3 mmol/L Normal Th e [facility] Comment on above: Performed By: #### C MP, BNP, HSTROPN ####[facility] [address] [place], [place] [address]Dr. Nahed Yañez AST [Catalytic activity/Vol] 18 U/L Normal 15-37 [facility] Comment on above: Performed By: #### C MP, BNP, HSTROPN ####[facility] [address]yzp[address] [place] [address]Dr. Nahed Yañez Bilirubin [Mass/Vol] 0.4 mg/dL Normal 0.2-1.0 [facility] Comment on above: Performed By: #### C MP, BNP, HSTROPN ####[facility] [address]ef[address] [place] [address]Dr. Nahed Yañez Calcium [Mass/Vol] 9.3 mg/dL Normal 8.5-10.1 [facility] Comment on above: Performed By: #### C MP, BNP, HSTROPN ####[facility] L[address]xntxjpe55[address] [place] [address]Dr. Nahed Yañez Chloride [Moles/Vol] 102 mmol/L Normal 98-107 [facility] Comment on above: Performed By: #### C MP, BNP, HSTROPN ####[facility] Mpfmozdmdt7864 [place] [address]Dr. Nahed Yañez CO2 [Moles/Vol] 27.1 mmol/L Normal 21.0-32.0 [facility] Comment on above: Performed By: #### C MP, BNP, HSTROPN ####[facility] Cpzxojmhis88[address] [place] [address]Dr. Nahed Yañez Creatinine [Mass/Vol] 1.25 mg/dL Critically high 0.55-1.02 [facility] Comment on above: Performed By: #### C MP, BNP, HSTROPN ####[facility] L[address]jrrnowm[address] [place] [address]Dr. Nahed Yañez EGFR-AF VENEZUELAN 53 mL/min/1.73m2 Critically low >=60 [facility] Comment on above: Performed By: #### C MP, BNP, HSTROPN ####[facility] Dzrqvtwvwf28[address] [place] [address]Dr. Nahed Yañez EGFR-NON AF VENEZUELAN 44 mL/min/1.73m2 Critically low >=60 [facility] Comment on above: Performed By: #### C MP, BNP, HSTROPN ####[facility] [address] [place], [place] [address]Dr. Nahed Yañez Globulin (S) [Mass/Vol] 3.2 g/dL Normal [facility] Comment on above: Performed By: #### C MP, BNP, HSTROPN ####[facility] [address] [place], [place] [address]Dr. Nahed Yañez Glucose [Mass/Vol] 248 mg/dL Critically high 74-106 [facility] Comment on above: Performed By: #### C MP, BNP, HSTROPN ####[facility] [address]wtxdqswaw7602 [place] [address]Dr. Nahed Yañez Potassium [Moles/Vol] 3.4 mmol/L Critically low 3.5-5.1 [facility] Comment on above: Performed By: #### C MP, BNP, HSTROPN ####[facility] [address] [place], [place] [address]Dr. Nahed Yañez Protein [Mass/Vol] 6.3 g/dL Critically low 6.4-8.2 [facility] Comment on above: Performed By: #### C MP, BNP, HSTROPN ####[facility] [address]xf[address]n10[address] [place], [place] [address]Op. Nahed Yañez Sodium [Moles/Vol] 140 mmol/L Normal 136-145 [facility] Comment on above: Performed By: #### C MP, BNP, HSTROPN ####[facility] Up[address]kyuctf[address] [place], [place] [address]Ye. Rosemarieashley Yañez Urea nitrogen [Mass/Vol] 18.0 mg/dL Normal 7.0-18.0 [facility] Comment on above: Performed By: #### C MP, BNP, HSTROPN ####[facility] [address]axqoqbuu[address] [place] [id number]. Nahed Yañez Urea nitrogen/Creatinine [Mass ratio] 14.4 mg/mg Normal [facility] Comment on above: Performed By: #### C MP, BNP, HSTROPN ####[facility] [address]ymmkdpd07[address] [place] [address]Dr. Nahed Yañez PROTHROMBIN TIMEon 2 INR Coag (PPP) [Relative time] 1.06 {INR} Normal 0.91-1.16 [facility] Comment on above: Order Comment: No: D [...] 1995;[id number]. Performed By: #### 5 6101 #### [facility] [address] [place] [address], [facility] PT Coag (PPP) [Time] 13.8 s Normal 12.3-14.8 [facility] Comment on above: Order Comment: No: D o not add to previous draw Result Comment: ALL RESULTS MUST BE INTERPRETED WITH RESPECT TO BLOOD DRAWING ARTIFACT OR DILUTION ERROR OF ANTICOAGULANT AT THE TIME OF SAMPLING. Performed By: #### 5 6101 #### [facility] [address] [place] [address], [facility] TROPONIN, HIGH SENSITIVITYon 11-01-2021 HSTROP 1684.4 pg/mL Critically high 4.0-51.3 [facility] Comment on above: Result Comment: CUT- OFF POINTS HAVE BEEN ESTABLISHED BASED ON THE FOURTH UNIVERSAL DEFINITIONS OF MYOCARDIALINFARCTION. THE UPPER REFERENCE LIMIT (URL) OF TROPONIN, DEFINED THE 99TH PERCENTILE OFcTnI DISTRIBUTION IN A REFERENCE POPULATION, HAS BEEN CONFIRMED THE DECISION THRESHOLDFOR [place] DIAGNOSIS. Performed By: #### C MP, BNP, HSTROPN ####[facility] [address] [place] [address]DrShaun Yañez TROPONIN-Ion 11-01-2021 Troponin I.cardiac [Mass/Vol] 0.22 ng/mL Critically high 0.00-0.04 [facility] Comment on above: Order Comment: No: D o not add to previous draw Result Comment: M-TR OPONIN INITIAL CRITICAL HIGH; RESPUN AND RETESTED M-CRITICAL RESULT(S) REVIEWED, CALLED TO AND READ BACK BY Kathy Suárez RN at 2205. REFERENCE RANGES: 0.00 - 0.04 ng/ml NORMAL 0.05 - 0.50 ng/ml INDETERMINATE > 0.50 ng/ml CONSISTENT WITH AN M.I. Performed By: #### 0 [id number], [id number], [id number] #### [facility] [address] [place] [address], [facility] UFH HEPARIN ASSAYon 11-02-19 UNFRACTIONATED HEPARIN 0.55 IU/mL Normal 0.30-0.70 Th e [facility] Comment on above: Result Comment: [place] roxaban and Apixaban will interfere with the anti Xa assay used to monitor UFH and LMWH. Performed By: #### 3 [id number], [id number] #### [facility] [address] [place] [address], [facility] BLOOD GASES BTYon 10-31-2021 02 MODE ROOM AIR Normal [facility] Comment on above: Performed By: #### A BG ####[facility] Zlvrttjnii[address] [place] [address]Dr. Nahed Yañez ALLENS TEST Positive Normal [facility] Comment on above: Performed By: #### A BG ####[facility] Ttcmylqhqw4440 [place] [address]Dr. Nahed Yañez Base excess Calc (Bld) [Moles/Vol] 3.5 mmol/L Critically high -2.0-2.0 [facility] Comment on above: Performed By: #### A BG ####[facility] Xeojkvufct64[address] [place] [address]Dr. Nahed Yañez BIPAP PRESSURE Normal [facility] Comment on above: Performed By: #### A BG ####[facility] Sgphfxkuuh1474 [place] [address]Dr. Nahed Yañez CO2 [Moles/Vol] 56.3 mmol/L Critically high 23.0-28.0 [facility] Comment on above: Performed By: #### A BG ####[facility] Wqxtkkural3022 [place] [address]Dr. Nahed Yañez CPAP Normal [facility] Comment on above: Performed By: #### A BG ####[facility] Gwvmubetjh0754 [place] [address]Dr. Nahed Yañez FIO2 Normal [facility] Comment on above: Performed By: #### A BG ####[facility] Nlmaxhplmr6803 [place] [address]Dr. Nahed Yañez HCO3 (Bld) [Moles/Vol] 26.8 mmol/L Critically high 22.0-26 .0 [facility] Comment on above: Performed By: #### A BG ####[facility] Wacafyoltw5[address] [place] [address]Dr. Nahed Yañez LPM Normal [facility] Comment on above: Performed By: #### A BG ####[facility] Vybupjuwho2516 [place] [address]Dr. Nahed Yañez MINUTE VOLUME Normal [facility] Comment on above: Performed By: #### A BG ####[facility] Ranapgmqsr034[address] [place], [place] [address]Dr. Nahed Yañez Oxygen (Bld) [Partial pressure] 51.8 mm[Hg] Critically low 80.0-100.0 [facility] Comment on above: Performed By: #### A BG ####[facility] Rehbksclhk24[address] [place], [place] [address]Dr. Nahed Yañez Oxygen saturation in Blood 86.3 % Critically low 95.0-100.0 [facility] Comment on above: Performed By: #### A BG ####[facility] Sqmigtfcph[address] [place], [place] [address]Dr. Nahed Yañez PCO2 43.8 mmHg Normal 35.0-45.0 [facility] Comment on above: Performed By: #### A BG ####[facility] Hwadvgmrhs299[address] [place], [place] [address]Dr. Nahed Yañez PEEP Normal [facility] Comment on above: Performed By: #### A BG ####[facility] Avfcmjejgl4[address] [place], [place] [address]Dr. Nahed Yañez pH (Bld) 7.415 [pH] Normal 7.350-7.450 [facility] Comment on above: Performed By: #### A BG ####[facility] Zvxiddxxqb279[address] [place], [place] [address]Dr. Nahed Yañez PIP [facility] Comment on above: Performed By: #### A BG ####[facility] Iepfkblnvp34[address] [place], [place] [address]Dr. Nahed Yañez PS Lyme [facility] Comment on above: Performed By: #### A BG ####[facility] Cabxkgdrhg1038 [place] [address]Dr. Nahed Yañez PUNCTURE SITE RR Normal [facility] Comment on above: Performed By: #### A BG ####[facility] Imrjajhonr2692 [place] [address]Dr. Nahed Yañez RATE Normal [facility] Comment on above: Performed By: #### A BG ####[facility] Bfghuswqrv0415 [place] [address]Dr. Nahed Yañez VENT MODE Normal [facility] Comment on above: Performed By: #### A BG ####[facility] Oksrqsglao1415 [place] [address]Dr. Nahed Yañez [place] [facility] Comment on above: Performed By: #### A BG ####[facility] Xhdohuansy9654 [place] [address]Dr. Nahed Yañez BNPon 2 Natriuretic peptide B (Bld) [Mass/Vol] 08615.0 pg/mL Critically high <=900.0 [facility] Comment on above: Performed By: #### T 4, TSH, BNP, CMADM ####[facility] Osonmbyyeu7506 [place] [address]Dr. Nahed Yañez CARDIAC FRANCISCO 3-6on 2 CK [Catalytic activity/Vol] 91 U/L Normal 26-192 [facility] Comment on above: Performed By: #### C MREP ####[facility] Lofbqphivl[address] [place], [place] [address]Dr. Nahed Yañez CK.MB [Mass/Vol] 7.32 ng/mL Critically high <=3.60 [facility] Comment on above: Result Comment: test repeated critical value verified Performed By: #### C MREP ####[facility] Mpvxvdkmwh405[address] [place], [place] [address]Dr. Nahed Yañez HSTROP 2823.1 pg/mL Critically high 4.0-51.3 [facility] Comment on above: Result Comment: CUT- OFF POINTS HAVE BEEN ESTABLISHED BASED ON THE FOURTH UNIVERSAL DEFINITIONS OF MYOCARDIALINFARCTION. THE UPPER REFERENCE LIMIT (URL) OF TROPONIN, DEFINED THE 99TH PERCENTILE OFcTnI DISTRIBUTION IN A REFERENCE POPULATION, HAS BEEN CONFIRMED THE DECISION THRESHOLDFOR [place] DIAGNOSIS.test repeated critical value verified Performed By: #### C MREP ####[facility] Ysbcfbzban7589 [place] [address]Dr. Nahed Yañez CARDIAC FRANCISCO ADMITon 022 CK [Catalytic activity/Vol] 85 U/L Normal 26-192 [facility] Comment on above: Performed By: #### T 4, TSH, BNP, CMADM ####[facility] Bpawxreuxx0050 [place] [address]Dr. Nahed Yañze CK.MB [Mass/Vol] 6.44 ng/mL Critically high <=3.60 [facility] Comment on above: Performed By: #### T 4, TSH, BNP, CMADM ####[facility] Bhqbsudaiq4009 [place] [address]Dr. Nahed Yañez HSTROP 3194.8 pg/mL Critically high 4.0-51.3 The [facility] Comment on above: Result Comment: CUT- OFF POINTS HAVE BEEN ESTABLISHED BASED ON THE FOURTH UNIVERSAL DEFINITIONS OF MYOCARDIALINFARCTION. THE UPPER REFERENCE LIMIT (URL) OF TROPONIN, DEFINED THE 99TH PERCENTILE OFcTnI DISTRIBUTION IN A REFERENCE POPULATION, HAS BEEN CONFIRMED THE DECISION THRESHOLDFOR [place] DIAGNOSIS. Performed By: #### T 4, TSH, BNP, CMADM ####[facility] Vebqzvazoj6421 [place] [address]Dr. Nahed Yañez ANDRE 57 ng/mL Normal 9-82 [facility] Comment on above: Performed By: #### T 4, TSH, BNP, CMADM ####[facility] Wwwfajnwou5299 [place] [address]Dr. Nahed Yañez CBC AUTO DIFFon 10-31-2021 BASO # 0.0 103/ul Normal 0.0-0.1 [facility] Comment on above: Performed By: #### C BC ####[facility] Dyyfslkhvw2767 [place] [address]Dr. Nahed Yañez Basophils/100 WBC (Bld) 0.2 % Normal 0.2-2.0 [facility] Comment on above: Performed By: #### C BC ####[facility] Qobtgkgdpj0345 [place] [address]Dr. Nahed Yañez EO # 0.0 103/ul Normal 0.0-0.7 [facility] Comment on above: Performed By: #### C BC ####[facility] Ozehpmwiir3938 [place] [address]Dr. Nahed Yañez Eosinophils/100 WBC (Bld) 0.1 % Critically low 0.9-7.0 [facility] Comment on above: Performed By: #### C BC ####[facility] Qdfawllgjv348[address] [place], [place] [address]Dr. Nahed Yañez Erythrocyte distribution width (RBC) [Ratio] 14.8 % Normal 11.0-15.0 [facility] Comment on above: Performed By: #### C BC ####[facility] Wtoctwvwzk4938[address] [place], [place] [address]Dr. Nahed Yañez Hematocrit (Bld) [Volume fraction] 44.4 % Normal 36.0-48.0 [facility] Comment on above: Performed By: #### C BC ####[facility] Scnphbbzkl[address] [place], [place] [address]Dr. Nahed Yañez Hemoglobin (Bld) [Mass/Vol] 14.1 g/dL Normal 12.0-16.0 [facility] Comment on above: Performed By: #### C BC ####[facility] Myohhluzab20[address] [place], [place] [address]Dr. Nahed Yañez IG # 0.04 10e3/ul Critically high 0.00-0.03 [facility] Comment on above: Performed By: #### C BC ####[facility] Gtdzhrhqfu7[address] [place], [place] [address]Dr. Rosemarieashley Yañez IG % 0.3 % Normal 0.0-0.5 [facility] Comment on above: Performed By: #### C BC ####[facility] Eeubovsqwr53[address] [place], [place] [address]DrShaun Yañez LYMPH # 1.4 103/ul Normal 1.2-3.8 [facility] Comment on above: Performed By: #### C BC ####[facility] Tcfdkvewse1618 [place] [id number]. Nahed Otilio Lymphocytes/100 WBC (Bld) 10.4 % Critically low 20.5-60.0 [facility] Comment on above: Performed By: #### C BC ####[facility] Mxdsdkrrqn5401 [place] [id number] Yañez MANUAL DIFF REQ NO Normal [facility] Comment on above: Performed By: #### C BC ####[facility] Xsjvkovvak8801 [place] [id number]. Nahed Yañez MCH (RBC) [Entitic mass] 28.1 pg Normal 26.7-34.0 [facility] Comment on above: Performed By: #### C BC ####[facility] Swwsphobwq89[address] [place], [place] [address]Dr. Nahed Yañez MCHC (RBC) [Mass/Vol] 31.8 g/dL Normal 29.9-35.2 [facility] Comment on above: Performed By: #### C BC ####[facility] Agcoidnuoe0335 [place] [id number] Yañez MCV (RBC) [Entitic vol] 88.4 fL Normal 81.0-99.0 [facility] Comment on above: Performed By: #### C BC ####[facility] Edjfsyiplo7301 [place] [address]Dr. Nahed Yañez MONO # 0.8 103/ul Normal 0.3-0.8 [facility] Comment on above: Performed By: #### C BC ####[facility] Iqcdaijhaa[address] [place], [place] [address]DrShaun Yañez Monocytes/100 WBC (Bld) 6.0 % Normal 1.7-12.0 [facility] Comment on above: Performed By: #### C BC ####[facility] Aowzfyxawp4798 [place] [id number] Yañez NEUT # 10.9 103/ul Critically high 1.4-6.5 [facility] Comment on above: Performed By: #### C BC ####[facility] Uedvyqrgfq0663 [place] [address]Dr. Nahed Yañez Neutrophils/100 WBC (Bld) 83.0 % Critically high 43.0-75.0 [facility] Comment on above: Performed By: #### C BC ####[facility] Nihlktmrdo4906 [place] [address]Dr. Nahed Otilio Platelet mean volume (Bld) [Entitic vol] 10.8 fL Normal 9.5-13.5 [facility] Comment on above: Performed By: #### C BC ####[facility] Wzsytdyxcq0247 [place] [address]Dr. Nahed Otilio PLT 402 103/ul Normal 150-450 [facility] Comment on above: Performed By: #### C BC ####[facility] Keglwiupsx6[address] [place], [place] [address]Dr. Rosemarieashley Otilio RBC 5.02 106/ul Normal 4.20-5.40 [facility] Comment on above: Performed By: #### C BC ####[facility] Ifhvcwflph12[address] [place], [place] [address]Dr. Nahed Otilio WBC 13.1 103/ul Critically high 4.0-11.0 [facility] Comment on above: Performed By: #### C BC ####[facility] Flbunxwkdx710[address] [place], [place] [address]Dr. Nahed Otilio CTA CHEST WO W CONon 022 CTA CHEST WO W CON Normal [facility] CULTURE BLOODon 10-31-2021 Microscopic examination of blood, culture Culture Observations: NO GROWTH AT 5 DAYS. Normal [facility] Comment on above: Performed By: #### B LDCX2 ####[facility] Rxzwxjdlng66[address] [place], [place] [address]Dr. Nahed Otilio Microscopic examination of blood, culture Culture Observations: NO GROWTH AT 5 DAYS. Normal [facility] Comment on above: Performed By: #### B LDCX1 ####[facility] Zioeztejyb225[address] [place], [place] [address]Dr. Nahed Yañez Covid-19 PCR (CVDTBH)on 10-13 SARS-CoV-2 (COVID-19) RNA MIRNA+probe Ql (Unsp spec) Not detected Normal NOT DETECTED [facility] Comment on above: Result Comment: When [...] for this test is supported by the [place] of Health and Human Service's declaration that [...] Performed By: #### C VDTB ####[facility] Enkcbkzhtl[address] [place] [address]Dr. Nahed Yañez ECHO LIMITED STUDYon 022 ECHO LIMITED STUDY Normal [facility] ER URINE PROFILEon 2 Bilirubin Ql (U) SMALL Abnormal NEGATIVE The [facility] Comment on above: Performed By: #### YARELIS DOVE ####[facility] Wbcizokcdo8620 [place] [address]Dr. Nahed Yañez Clarity (U) CLEAR Normal CLEAR [facility] Comment on above: Performed By: #### YARELIS DOVE ####[facility] Djnvwzazmv5007 [place] [address]Dr. Nahed Yañez Color (U) YELLOW Normal YELLOW [facility] Comment on above: Performed By: #### YARELIS DOVE ####[facility] Tnvabsulex4192 [place] [address]Dr. Yilan Yañez ERUAHD A micrscopic examination will be performed if indicated. Normal [facility] Comment on above: Performed By: #### NUNU DOVERO ####[facility] Jllgjkskgu8[address] [place], [place] [address]Dr. Nahed Yañez Glucose Ql (U) Negative Normal NEGATIVE [facility] Comment on above: Performed By: #### Isidoro ALCARAZ UMICRO ####[facility] Wrjoicjcpj34[address] [place], [place] [address]Dr. Nahed Yañez Hemoglobin Ql (U) TRACE-INTACT Abnormal NEGATIVE [facility] Comment on above: Performed By: #### Isidoro ALCARAZ UMICRO ####[facility] Ckndyuunya9[address] [place], [place] [address]Dr. Nahed Yañez Ketones Ql (U) 15 mg/dl Abnormal NEGATIVE [facility] Comment on above: Performed By: #### Isidoro ALCARAZ UMICRO ####[facility] Lsyrdywgtc678[address] [place], [place] [address]Dr. Nahed Yañez LEUKOCYTES TRACE Abnormal NEGATIVE [facility] Comment on above: Performed By: #### Isidoro ALCARAZ UMICRO ####[facility] Tpyifqrgoo0179[address] [place], [place] [address]Dr. Nahed Yañez Nitrite Ql (U) Negative Normal NEGATIVE [facility] Comment on above: Performed By: #### Isidoro ALCARAZ UMICRO ####[facility] Fdzvrrrmio2838[address] [place], [place] [address]Dr. Nahed Yañez pH (U) 6.5 [pH] Normal 5-9 [facility] Comment on above: Performed By: #### Isidoro ALCARAZ UMICRO ####[facility] Vrhucezzxf8814[address] [place], [place] [address]Dr. Nahed Yañez Protein (U) [Mass/Vol] 30 mg/dL Abnormal NEGAT JOSEPHINE/ TRACE [facility] Comment on above: Performed By: #### Isidoro ALCARAZ UMICRO ####[facility] Utjzkdpwzt[address] [place], [place] [address]Dr. Nahed Yañez SPEC GRAVITY 1.025 Normal 1.005-<=1.02 5 [facility] Comment on above: Performed By: #### YARELIS DOVE ####[facility] Gmmumhcgah[address] [place], [place] [address]Dr. Nahed Yañez UR MICRO IND INDICATED Normal [facility] Comment on above: Performed By: #### YARELIS DOVE ####[facility] Rqrgxantvl54[address] [place], [place] [address]Dr. Nahed Yañez Urobilinogen Qn (U) 0.2 {Alem'U}/dL Normal 0.2 - 1. 0 [facility] Comment on above: Performed By: #### YARELIS DOVE ####[facility] Opjquiebzo27[address] [place], [place] [address]Dr. Nahed Yañez INFLUENZA A AND B AGon 10-31 INFLUANEGH SEE BELOW Normal [facility] Comment on above: Result Comment: Nega tive for Flu A protein angiten. Infection due to Flu A cannot be ruled out. Flu A angiten in the sample may be below the detection limit of the test. Performed By: #### I NFLUAB ####[facility] Mcsitmvscg068[address] [place], [place] [address]Dr. Nahed Yañez INFLUBNEGH SEE BELOW Normal [facility] Comment on above: Result Comment: Nega tive for Flu B protein antigen. Infection due to Flu B cannot be ruled out. Flu B antigen in the sample may be below the detection limit of the test. Performed By: #### I NFLUAB ####[facility] Evvalnwutb307[address] [place], [place] [address]Dr. Nahed Yañez INFLUENZA A AG Negative Normal NEGATIVE SEE COMMENT [facility] Comment on above: Performed By: #### I NFLUAB ####[facility] Iljxgviiyl497[address] [place], [place] [address]Dr. Nahed Yañez INFLUENZA B AG Negative Normal NEGATIVE SEE COMMENT [facility] Comment on above: Performed By: #### I NFLUAB ####[facility] Xtatuadgln97[address] [place], [place] [address]Dr. Nahed Yañez INTERNAL CONTROLS Within Normal Limits Normal Wi thin Normal Limits [facility] Comment on above: Performed By: #### I NFLUAB ####[facility] Xmbwbhmway7207 [place] [address]Dr. Nahed Yañez LACTATE/LACTIC ACIDon 2021 Lactate [Moles/Vol] 1.3 mmol/L Normal 0.4-1.9 [facility] Comment on above: Performed By: #### L ACT ####[facility] Rbdnopwntu0404 [place] [address]Dr. Nahed Yañez PROF 14(COMP METB)on 022 Albumin [Mass/Vol] 4.3 g/dL Normal 3.4-5.0 [facility] Comment on above: Performed By: #### C MP ####[facility] Forgxrkfwz120[address] [place], [place] [address]Dr. Nahed Yañez Albumin/Globulin [Mass ratio] 1.2 {ratio} Normal [facility] Comment on above: Performed By: #### C MP ####[facility] Widpwahzjc4310[address] [place], [place] [address]Dr. Nahed Yañez ALP [Catalytic activity/Vol] 77 U/L Normal 46-116 [facility] Comment on above: Performed By: #### C MP ####[facility] Ftcjziensm[address] [place], [place] [address]Dr. Nahed Yañez ALT [Catalytic activity/Vol] 25 U/L Normal 14-59 [facility] Comment on above: Performed By: #### C MP ####[facility] Eiteenikov044[address] [place], [place] [address]Dr. Nahed Yañez Anion gap [Moles/Vol] 15.6 mmol/L Normal [facility] Comment on above: Performed By: #### C MP ####[facility] Pdrsxssmmj905[address] [place], [place] [address]Dr. Nahed Yañez AST [Catalytic activity/Vol] 26 U/L Normal 15-37 [facility] Comment on above: Performed By: #### C MP ####[facility] Dpkcqeniop5425[address] [place], [place] [address]Dr. Nahed Yañez Bilirubin [Mass/Vol] 0.6 mg/dL Normal 0.2-1.0 [facility] Comment on above: Performed By: #### C MP ####[facility] Dobsgfuxox3270 [place] [address]Dr. Nahed Yañez Calcium [Mass/Vol] 10.0 mg/dL Normal 8.5-10.1 [facility] Comment on above: Performed By: #### C MP ####[facility] Yksqkgrpsm8776 [place] [address]Dr. Nahed Yañez Chloride [Moles/Vol] 101 mmol/L Normal 98-107 [facility] Comment on above: Performed By: #### C MP ####[facility] Muutzrwvrg01[address] [place], [place] [address]Dr. Nahed Yañez CO2 [Moles/Vol] 29.0 mmol/L Normal 21.0-32.0 [facility] Comment on above: Performed By: #### C MP ####[facility] Pfrxbzinnb46[address] [place], [place] [address]Dr. Nahed Yañez Creatinine [Mass/Vol] 0.89 mg/dL Normal 0.55-1.02 [facility] Comment on above: Performed By: #### C MP ####[facility] Muyoyqukls[address] [place], [place] [address]Dr. Nahed Yañez EGFR-AF VENEZUELAN >60 Normal >=60 [facility] Comment on above: Performed By: #### C MP ####[facility] Pilnxovyro860[address] [place], [place] [address]Dr. Nahed Otilio EGFR-NON AF VENEZUELAN >60 Normal >=60 [facility] Comment on above: Performed By: #### C MP ####[facility] Csvdypsbya038[address] [place], [place] [address]Dr. Nahed Yañez Globulin (S) [Mass/Vol] 3.7 g/dL Normal [facility] Comment on above: Performed By: #### C MP ####[facility] Eoqsnwhctx417[address] [place], [place] [address]Dr. Rosemarieashley Otilio Glucose [Mass/Vol] 182 mg/dL Critically high 74-106 [facility] Comment on above: Performed By: #### C MP ####[facility] Ijcotidalf8799 [place] [address]Dr. Nahed Yañez Potassium [Moles/Vol] 3.6 mmol/L Normal 3.5-5.1 [facility] Comment on above: Performed By: #### C MP ####[facility] Txhooiescq1643 [place] [address]Dr. Nahed Yañez Protein [Mass/Vol] 8.0 g/dL Normal 6.4-8.2 [facility] Comment on above: Performed By: #### C MP ####[facility] Aqwwfxmdyd[address] [place], [place] [address]Dr. Nahed Yañez Sodium [Moles/Vol] 142 mmol/L Normal 136-145 [facility] Comment on above: Performed By: #### C MP ####[facility] Nxkveswlgq7[address] [place], [place] [address]Dr. Nahed Yañez Urea nitrogen [Mass/Vol] 8.0 mg/dL Normal 7.0-18.0 [facility] Comment on above: Performed By: #### C MP ####[facility] Efuvllgrgf[address] [place], [place] [address]Dr. Nahed Yañez Urea nitrogen/Creatinine [Mass ratio] 9.0 mg/mg Normal [facility] Comment on above: Performed By: #### C MP ####[facility] Mryszmwdmm649[address] [place], [place] [address]Dr. Nahed Yañez T4on 10-31-2021 T4 [Mass/Vol] 8.10 ug/dL Normal 4.80-13.90 [facility] Comment on above: Performed By: #### T 4, TSH, BNP, CMADM ####[facility] Bujqhjxllt[address] [place], [place] [address]Dr. Nahed Yañez TSHon 10-31-2021 TSH 1.088 uIU/mL Normal 0.358-3.740 [facility] Comment on above: Performed By: #### T 4, TSH, BNP, CMADM ####[facility] Gpfcxnuvyb[address] [place], [place] [address]Dr. Nahed Yañez URINE MICROSCOPIC ONLYon BACTERIA TRACE Abnormal NONE SEEN [facility] Comment on above: Performed By: #### NUNU DOVERO ####[facility] Ujclhpzoor6299 [place] [address]Dr. Nahed Yañez Bacteria identified Cx Nom (U) NOT INDICATED Normal [facility] Comment on above: Performed By: #### MYLA DOVEICRO ####[facility] Yxonqukems40[address] [place], [place] [address]Dr. Nahed Yañez CAST NONE SEEN Normal NONE SEEN [facility] Comment on above: Performed By: #### NUNU DOVERO ####[facility] Inyxtrjuex[address] [place], [place] [address]Dr. Nahed Yañez Crystals LM Nom (Urine sed) NONE SEEN Normal NONE SEEN [facility] Comment on above: Performed By: #### NUNU DOVERO ####[facility] Pnlfowhuml[address] [place], [place] [address]Dr. Nahed Yañez Epithelial cells LM Ql (Urine sed) MODERATE Abnormal NONE SEEN /RARE [facility] Comment on above: Performed By: #### MYLA DOVEICRO ####[facility] Uocyaikjqn[address] [place], [place] [address]Dr. Nahed Yañez MUCOUS SMALL Abnormal NONE SEEN [facility] Comment on above: Performed By: #### MYLA DOVEICRO ####[facility] Vbijyyyotf[address] [place], [place] [address]Dr. Nahed Yañez RBC 2-5 Abnormal 0-2 [facility] Comment on above: Performed By: #### MYLA DOVEICRO ####[facility] Laaxehukek[address] [place], [place] [address]Dr. Nahed Yañez WBC 2-5 Abnormal NONE SEEN [facility] Comment on above: Performed By: #### Isidoro ALCARAZ UMICRO ####[facility] Rekpqutrbi[address] [place], [place] [address]Dr. Nahed Yañez XR CHEST 2 Von 10-31-2021 XR CHEST 2 V Normal [facility] CULTURE URINEon 10-30-2021 CULTURE URINE Culture Observations : MODERATE GROWTH OF MIXED GENITAL MIGUEL. NO POTENTIAL PATHOGENS SEEN. Normal [facility] Comment on above: Performed By: #### U RCX ####[facility] S[address]ptdyw[address] [place] [id number]. Nahed Yañez US JESSEE DOP LEG BILon 022 US JESSEE DOP LEG MOHAN Normal The [facility] CARDIAC FRANCISCO ADMITon 022 CK [Catalytic activity/Vol] 16 U/L Critically low 26-192 [facility] Comment on above: Performed By: #### C RENZO, CMADM ####[facility] Khxytgpvzx3156 [place] [id number]. Nahed Yañez CK.MB [Mass/Vol] 0.56 ng/mL Normal <=3.60 [facility] Comment on above: Performed By: #### C RENZO, CMADM ####[facility] Xflbsmiqug4[address] [place] [address]Dr. Nahed Yañez HSTROP 44.3 pg/mL Normal 4.0-51.3 [facility] Comment on above: Result Comment: CUT- OFF POINTS HAVE BEEN ESTABLISHED BASED ON THE FOURTH UNIVERSAL DEFINITIONS OF MYOCARDIALINFARCTION. THE UPPER REFERENCE LIMIT (URL) OF TROPONIN, DEFINED THE 99TH PERCENTILE OFcTnI DISTRIBUTION IN A REFERENCE POPULATION, HAS BEEN CONFIRMED THE DECISION THRESHOLDFOR [place] DIAGNOSIS. Performed By: #### C RENZO, CMADM ####[facility] Dksyetavgo3115 [place] [id number]. Nahed Yañez ANDRE 42 ng/mL Normal 9-82 [facility] Comment on above: Performed By: #### C MP, CMADM ####[facility] Ybsnrvbibj1695 [place] [id number]. Nahed Yañez CBC AUTO DIFFon 09-07-2021 BASO # 0.0 103/ul Normal 0.0-0.1 [facility] Comment on above: Performed By: #### C BC ####[facility] Ebzkjmhutp3060 [place] [id number]. Nahed Yañez Basophils/100 WBC (Bld) 0.4 % Normal 0.2-2.0 [facility] Comment on above: Performed By: #### C BC ####[facility] Loulwztgaw6792 [place] [id number]. Nahed Yañez EO # 0.2 103/ul Normal 0.0-0.7 [facility] Comment on above: Performed By: #### C BC ####[facility] Cenrzisihy9001 [place] [id number]. Nahed Yañez Eosinophils/100 WBC (Bld) 2.4 % Normal 0.9-7.0 [facility] Comment on above: Performed By: #### C BC ####[facility] Zpspdntlob0736 [place] [address]Dr. Nahed Yañez Erythrocyte distribution width (RBC) [Ratio] 15.1 % Critically high 11.0-15.0 [facility] Comment on above: Performed By: #### C BC ####[facility] Luqkeeprbz6632[address] [place], [place] [address]Dr. Nahed Yañez Hematocrit (Bld) [Volume fraction] 42.6 % Normal 36.0-48.0 [facility] Comment on above: Performed By: #### C BC ####[facility] Juguviudbl[address] [place], [place] [address]Dr. Nahed Yañez Hemoglobin (Bld) [Mass/Vol] 13.4 g/dL Normal 12.0-16.0 [facility] Comment on above: Performed By: #### C BC ####[facility] Rbuxpenzde[address] [place], [place] [address]Dr. Nahed Yañez IG # 0.33 10e3/ul Critically high 0.00-0.03 [facility] Comment on above: Performed By: #### C BC ####[facility] Cruzqahwei[address] [place], [place] [address]Dr. Nahed Yañez IG % 3.9 % Critically high 0.0-0.5 [facility] Comment on above: Performed By: #### C BC ####[facility] Icbpveeich398[address] [place], [place] [address]Dr. Nahed Yañez LYMPH # 2.6 103/ul Normal 1.2-3.8 [facility] Comment on above: Performed By: #### C BC ####[facility] Jvbtpyggcf3769 [place] [id number]. Nahed Yañez Lymphocytes/100 WBC (Bld) 30.3 % Normal 20.5-60.0 [facility] Comment on above: Performed By: #### C BC ####[facility] Mfvcplheou8[address] [place] [address]Dr. Nahed Yañez MANUAL DIFF REQ NO Normal [facility] Comment on above: Performed By: #### C BC ####[facility] Cnnpteaetj4013 [place] [id number]. Nahed Yañez MCH (RBC) [Entitic mass] 28.6 pg Normal 26.7-34.0 [facility] Comment on above: Performed By: #### C BC ####[facility] Thewoctbob[address] [place], [place] [address]Dr. Nahed Yañez MCHC (RBC) [Mass/Vol] 31.5 g/dL Normal 29.9-35.2 [facility] Comment on above: Performed By: #### C BC ####[facility] Xucaqnbnwf[address] [place], [place] [address]Dr. Nahed Yañez MCV (RBC) [Entitic vol] 90.8 fL Normal 81.0-99.0 [facility] Comment on above: Performed By: #### C BC ####[facility] Yilghtdutz25[address] [place] [address]Dr. Nahed Yañez MONO # 0.7 103/ul Normal 0.3-0.8 [facility] Comment on above: Performed By: #### C BC ####[facility] Hmhgizxgui[address] [place], [place] [address]Dr. Nahed Yañez Monocytes/100 WBC (Bld) 8.0 % Normal 1.7-12.0 [facility] Comment on above: Performed By: #### C BC ####[facility] Q[address] [place], [place] [address]DrShaun Yañez NEUT # 4.7 103/ul Normal 1.4-6.5 [facility] Comment on above: Performed By: #### C BC ####[facility] Mchtwyjhaj4226 [place] [address]Dr. Nahed Yañez Neutrophils/100 WBC (Bld) 55.0 % Normal 43.0-75.0 [facility] Comment on above: Performed By: #### C BC ####[facility] Fhwktncobt4043 [place] [address]Dr. Nahed Yañez Platelet mean volume (Bld) [Entitic vol] 8.9 fL Critically low 9.5-13.5 [facility] Comment on above: Performed By: #### C BC ####[facility] Nwpzkwktnb2985 [place] [address]Dr. Nahed Yañez PLT 270 103/ul Normal 150-450 [facility] Comment on above: Performed By: #### C BC ####[facility] Cjmtkidhck9175 [place] [address]Dr. Nahed Yañez RBC 4.69 106/ul Normal 4.20-5.40 [facility] Comment on above: Performed By: #### C BC ####[facility] Qickegmjqr[address] [place], [place] [address]Dr. Nahed Yañez WBC 8.5 103/ul Normal 4.0-11.0 [facility] Comment on above: Performed By: #### C BC ####[facility] Muvghybqld4962 [place] [address]DrShaun Yañez PROF 14(COMP METB)on 022 Albumin [Mass/Vol] 2.7 g/dL Critically low 3.4-5.0 [facility] Comment on above: Performed By: #### C ERICK MULLER ####[facility] Edkqemtjyo[address] [place], [place] [address]DrShaun Yañez Albumin/Globulin [Mass ratio] 0.8 {ratio} Normal [facility] Comment on above: Performed By: #### C ERICK MULLER ####[facility] Xqejsfmvqd3933 [place] [address]DrShaun Yañez ALP [Catalytic activity/Vol] 65 U/L Normal 46-116 [facility] Comment on above: Performed By: #### C RENZO, ERICK ####[facility] Tqdxphgrlg9937 [place] [address]Dr. Nahed Yañez ALT [Catalytic activity/Vol] 27 U/L Normal 14-59 [facility] Comment on above: Performed By: #### C RENZO, ERICK ####[facility] Qhlwhpufhv9063 [place] [address]Dr. Nahed Yañez Anion gap [Moles/Vol] 10.3 mmol/L Normal [facility] Comment on above: Performed By: #### C ERICK MULLER ####[facility] Tyjsmzaily[address] [place], [place] [address]Dr. Nahed Yañez AST [Catalytic activity/Vol] 11 U/L Critically low 15-37 [facility] Comment on above: Performed By: #### C ERICK MULLER ####[facility] Phvmatdgad[address] [place], [place] [address]Dr. Nahed Otilio Bilirubin [Mass/Vol] 0.3 mg/dL Normal 0.2-1.0 [facility] Comment on above: Performed By: #### C ERICK MULLER ####[facility] Mulmccqcfi[address] [place], [place] [address]Dr. Nahed Yañez Calcium [Mass/Vol] 8.1 mg/dL Critically low 8.5-10.1 [facility] Comment on above: Performed By: #### C RENZO, ERICK ####[facility] Hyjwdhzavs[address] [place], [place] [address]Dr. Nahed Otilio Chloride [Moles/Vol] 98 mmol/L Normal 98-107 [facility] Comment on above: Performed By: #### C ERICK MULLER ####[facility] Wzhralfsvk[address] [place], [place] [address]Dr. Nahed Yañez CO2 [Moles/Vol] 32.5 mmol/L Critically high 21.0-32.0 [facility] Comment on above: Performed By: #### C ERICK MULLER ####[facility] Uwlcksxzeb9716 [place] [address]Dr. Nahed Yañez Creatinine [Mass/Vol] 0.94 mg/dL Normal 0.55-1.02 [facility] Comment on above: Performed By: #### C RENZO, ERICK ####[facility] Uvcbmnyrbc5753 [place] [address]Dr. Nahed Yañez EGFR-AF VENEZUELAN >60 Normal >=60 [facility] Comment on above: Performed By: #### C RENZO, CMADM ####[facility] Dwasizrvpy57[address] [place] [address]Dr. Nahed Yañez EGFR-NON AF VENEZUELAN >60 Normal >=60 [facility] Comment on above: Performed By: #### C RENZO, CMAJOSE ####[facility] Mrgnwuqagh2156 [place] [address]Dr. Nahed Yañez Globulin (S) [Mass/Vol] 3.2 g/dL Normal [facility] Comment on above: Performed By: #### C RENZO, CMAJOSE ####[facility] Yshyixxaif9468 [place] [address]Dr. Nahed Yañez Glucose [Mass/Vol] 123 mg/dL Critically high 74-106 [facility] Comment on above: Performed By: #### C RENZO, CMAJOSE ####[facility] Hfjokrnrsw0041 [place] [address]Dr. Nahed Yañez Potassium [Moles/Vol] 3.8 mmol/L Normal 3.5-5.1 [facility] Comment on above: Performed By: #### C RENZO, CMADM ####[facility] Ohlljpnncd0184 [place] [address]Dr. Nahed Yañez Protein [Mass/Vol] 5.9 g/dL Critically low 6.1-8.2 Th [facility] Comment on above: Performed By: #### C RENZO, CMADM ####[facility] Frwwoegusw9073 [place] [address]Dr. Nahed Yañez Sodium [Moles/Vol] 137 mmol/L Normal 136-145 [facility] Comment on above: Performed By: #### C RENZO, CMADM ####[facility] Ybnxnujxne[address] [place], [place] [address]Dr. Nahed Yañez Urea nitrogen [Mass/Vol] 20.0 mg/dL Critically high 7.0-18.0 [facility] Comment on above: Performed By: #### C MP, CMADM ####[facility] Tdlwotwiwd[address] [place], [place] [address]Dr. Nahed Otilio Urea nitrogen/Creatinine [Mass ratio] 21.3 mg/mg Normal [facility] Comment on above: Performed By: #### C MP, CMADM ####[facility] Kgvnfmpgbs[address] [place], [place] [address]Dr. Nahed Otilio BNPon 09-06-2021 Natriuretic peptide B (Bld) [Mass/Vol] 923.0 pg/mL Critically high <=900.0 [facility] Comment on above: Performed By: #### B MP, BNP, HSTROPN ####[facility] Uzetgprwls[address] [place], [place] [address]Dr. Nahed Otilio CBC AUTO DIFFon 09-06-2021 BASO # 0.1 103/ul Normal 0.0-0.1 [facility] Comment on above: Performed By: #### C BC ####[facility] Rkdcxkwtzp[address] [place], [place] [address]Dr. Nahed Otilio Basophils/100 WBC (Bld) 0.6 % Normal 0.2-2.0 [facility] Comment on above: Performed By: #### C BC ####[facility] Gxvgokilth[address] [place], [place] [address]Dr. Nahed Otilio EO # 0.3 103/ul Normal 0.0-0.7 [facility] Comment on above: Performed By: #### C BC ####[facility] Ftglhmeuno[address] [place], [place] [address]Dr. Nahed Otilio Eosinophils/100 WBC (Bld) 3.0 % Normal 0.9-7.0 [facility] Comment on above: Performed By: #### C BC ####[facility] Jdcrkabmkg[address] [place], [place] [address]Dr. Nahed Otilio Erythrocyte distribution width (RBC) [Ratio] 15.0 % Normal 11.0-15.0 [facility] Comment on above: Performed By: #### C BC ####[facility] Imhdszfbru88[address] [place] [address]Dr. Nahed Otilio Hematocrit (Bld) [Volume fraction] 48.1 % Critically high 36.0-48.0 [facility] Comment on above: Performed By: #### C BC ####[facility] Zvngebgpcu[address] [place], [place] [address]Dr. Nahed Otilio Hemoglobin (Bld) [Mass/Vol] 15.5 g/dL Normal 12.0-16.0 [facility] Comment on above: Result Comment: delt a check called to Manisha WALKER Performed By: #### C BC ####[facility] Upimmarfnp[address] [place], [place] [address]Dr. Nahed Yañez IG # 0.46 10e3/ul Critically high 0.00-0.03 [facility] Comment on above: Performed By: #### C BC ####[facility] Vsqhfwbwqa[address] [place], [place] [address]Dr. Nahed Yañez IG % 4.2 % Critically high 0.0-0.5 [facility] Comment on above: Performed By: #### C BC ####[facility] Hbcolwnvdf39[address] [place], [place] [address]Dr. Nahed Yañez LYMPH # 2.2 103/ul Normal 1.2-3.8 [facility] Comment on above: Performed By: #### C BC ####[facility] Lowvxhvmyl[address] [place], [place] [address]Dr. Nahed Yañez Lymphocytes/100 WBC (Bld) 20.6 % Normal 20.5-60.0 [facility] Comment on above: Performed By: #### C BC ####[facility] Jykrqjlyce[address] [place], [place] [address]Dr. Nahed Yañez MANUAL DIFF REQ NO Normal [facility] Comment on above: Performed By: #### C BC ####[facility] Z[address]ysjrqayk[address] [place], [place] [address]Dr. Nahed Yañez MCH (RBC) [Entitic mass] 28.2 pg Normal 26.7-34.0 [facility] Comment on above: Performed By: #### C BC ####[facility] Shzopfvzuu[address] [place] [address]Dr. Nahed Yañez MCHC (RBC) [Mass/Vol] 32.2 g/dL Normal 29.9-35.2 [facility] Comment on above: Performed By: #### C BC ####[facility] Dhnguaxxqc5981 [place] [address]Dr. Nahed Yañez MCV (RBC) [Entitic vol] 87.5 fL Normal 81.0-99.0 [facility] Comment on above: Performed By: #### C BC ####[facility] Gvxpuywomv04[address] [place] [address]Dr. Nahed Yañez MONO # 0.7 103/ul Normal 0.3-0.8 [facility] Comment on above: Performed By: #### C BC ####[facility] Otvamumqfh4764 [place] [address]Dr. Nahed Otilio Monocytes/100 WBC (Bld) 6.4 % Normal 1.7-12.0 [facility] Comment on above: Performed By: #### C BC ####[facility] Zrkkzdtttl[address] [place], [place] [address]Dr. Nahed Yañez NEUT # 7.1 103/ul Critically high 1.4-6.5 [facility] Comment on above: Performed By: #### C BC ####[facility] Tlykiwpkkh8862 [place] [address]Dr. Nahed Otilio Neutrophils/100 WBC (Bld) 65.2 % Normal 43.0-75.0 [facility] Comment on above: Performed By: #### C BC ####[facility] Kdgkhhesjz6431 [place] [address]Dr. Nahed Otilio Platelet mean volume (Bld) [Entitic vol] 8.9 fL Critically low 9.5-13.5 [facility] Comment on above: Performed By: #### C BC ####[facility] Yhjbrjloml2743 [place], [place] [address]Xr. Nahed Yañez PLT 390 103/ul Normal 150-450 [facility] Comment on above: Performed By: #### C BC ####[facility] Tvedvnderf1835 [place], [place] [address]Lo. Nahed Yañez RBC 5.50 106/ul Critically high 4.20-5.40 [facility] Comment on above: Performed By: #### C BC ####[facility] K[address]vqbchz1512 [place], [place] [address]Hd. Nahed Yañez WBC 10.8 103/ul Normal 4.0-11.0 [facility] Comment on above: Performed By: #### C BC ####[facility] Hrlhljqulk48[address] [place] [id number]. Nahed Yañez CULTURE BLOODon 09-06-2021 Microscopic examination of blood, culture Culture Observations: NO GROWTH AT 5 DAYS. Isolate 1 BC_BA_NA Normal [facility] Comment on above: Performed By: #### B LDCX2 ####[facility] Adbqmbcize8740 [place], [place] [address]Yg. Nahed Yañez Microscopic examination of blood, culture Culture Observations: NO GROWTH AT 5 DAYS. Normal [facility] Comment on above: Performed By: #### B LDCX1 ####[facility] Rkfxbtekxg7213 [place] [id number]. Nahed Yañez Covid-19 PCR (CVDTB)on 08-13 SARS-CoV-2 (COVID-19) RNA MIRNA+probe Ql (Unsp spec) Not detected Normal NOT DETECTED [facility] Comment on above: Result Comment: When [...] for this test is supported by the [employer] of Health and Human Service's declaration that [...] Performed By: #### C VDTBH ####[facility] Afyrdelaxp38[address] [place] [address]Dr. Nahed Yañez LACTATE/LACTIC ACIDon 2021 Lactate [Moles/Vol] 0.1 mmol/L Critically low 0.4-2.0 [facility] Comment on above: Performed By: #### L ACT ####[facility] Shfcqtdscb[address] [place], [place] [address]Dr. Nahed Yañez Lactate [Moles/Vol] 1.5 mmol/L Normal 0.4-2.0 [facility] Comment on above: Performed By: #### L ACT ####[facility] Bipdhfprew[address] [place], [place] [address]Dr. Nahed Yañez POINT OF CARE GLUCOSEon 08-13 Glucose [Mass/Vol] 201 mg/dL Critically high 74-106 [facility] Comment on above: Performed By: #### P OCGLUC ####[facility] Pevayveeip[address] [place], [place] [address]Dr. Nahed Yañez PROF CHEM 8 (BAS METB)on Anion gap [Moles/Vol] 14.8 mmol/L Normal [facility] Comment on above: Performed By: #### B MP, BNP, HSTROPN ####[facility] Jcqvhnoilw9367 [place] [address]Dr. Nahed Yañez Calcium [Mass/Vol] 8.8 mg/dL Normal 8.5-10.1 [facility] Comment on above: Performed By: #### B MP, BNP, HSTROPN ####[facility] Twiajfmmlx8523 [place] [address]Dr. Nahed Yañez Chloride [Moles/Vol] 95 mmol/L Critically low 98-107 [facility] Comment on above: Performed By: #### B MP, BNP, HSTROPN ####[facility] Splforpcev6330 [place] [address]Dr. Nahed Yañez CO2 [Moles/Vol] 28.7 mmol/L Normal 21.0-32.0 [facility] Comment on above: Performed By: #### B MP, BNP, HSTROPN ####[facility] Xmbguyskmm8228 [place] [address]Dr. Nahed Yañez Creatinine [Mass/Vol] 0.98 mg/dL Normal 0.55-1.02 [facility] Comment on above: Performed By: #### B MP, BNP, HSTROPN ####[facility] Eqimkvvynq7562 [place] [address]Dr. Nahed Yañez EGFR-AF VENEZUELAN >60 Normal >=60 [facility] Comment on above: Performed By: #### B MP, BNP, HSTROPN ####[facility] [address]obgffeq[address] [place], [place] [address]Dr. Nahed Yañez EGFR-NON AF VENEZUELAN 58 mL/min/1.73m2 Critically low >=60 [facility] Comment on above: Performed By: #### B MP, BNP, HSTROPN ####[facility] Vbslqkbgkn0608 [place] [address]Dr. Nahed Yañez Glucose [Mass/Vol] 150 mg/dL Critically high 74-106 [facility] Comment on above: Performed By: #### B MP, BNP, HSTROPN ####[facility] Gnwzxbmrnm8276 [place] [address]Dr. Nahed Yañez Potassium [Moles/Vol] 4.5 mmol/L Normal 3.5-5.1 [facility] Comment on above: Performed By: #### B MP, BNP, HSTROPN ####[facility] Iuofycdprn0482 [place] [address]Dr. Nahed Yañez Sodium [Moles/Vol] 134 mmol/L Critically low 136-145 [facility] Comment on above: Performed By: #### B MP, BNP, HSTROPN ####[facility] Lrxtliztwv8449 [place] [id number]. Nahed Yañez Urea nitrogen [Mass/Vol] 19.0 mg/dL Critically high 7.0-18.0 [facility] Comment on above: Performed By: #### B MP, BNP, HSTROPN ####[facility] Nkdfwizrfr6507 [place] [id number]. Nahed Yañez Urea nitrogen/Creatinine [Mass ratio] 19.4 mg/mg Normal [facility] Comment on above: Performed By: #### B MP, BNP, HSTROPN ####[facility] Auvwevaqux4865 [place] [address]Dr. Nahed Yañez TROPONIN, HIGH SENSITIVITYon 09-06-2021 HSTROP 50.4 pg/mL Normal 4.0-51.3 [facility] Comment on above: Result Comment: CUT- OFF POINTS HAVE BEEN ESTABLISHED BASED ON THE FOURTH UNIVERSAL DEFINITIONS OF MYOCARDIALINFARCTION. THE UPPER REFERENCE LIMIT (URL) OF TROPONIN, DEFINED THE 99TH PERCENTILE OFcTnI DISTRIBUTION IN A REFERENCE POPULATION, HAS BEEN CONFIRMED THE DECISION THRESHOLDFOR [place] DIAGNOSIS. Performed By: #### B MP, BNP, HSTROPN ####[facility] Emonvmheoj4652 [place] [address]Dr. Nahed Yañez XR CHEST 1 Von 09-06-2021 XR CHEST 1 V Normal [facility] CBC with Diffon 09-08-2018 Abs. Basophil 0.03 k/uL Normal 0.00-0.20 [facility] Comment on above: Performed By: #### L IP, CMPX, CDP #### [facility] [address] [place] [address] Freight Rate Analyst: Nino Farias MD Abs.Imm.Granulocyte 0.05 k/uL Normal 0.00-0.30 [facility] Comment on above: Performed By: #### L IP, CMPX, CDP #### [facility] [address] [place] [address] Freight Rate Analyst: Nino Farias MD Abs.Neutrophil (Seg) 11.30 k/uL High 1.50-8.10 [facility] Comment on above: Performed By: #### L IP, CMPX, CDP #### [facility] [address] [place], [facility] Freight Rate Analyst: Nino Farias MD Basophils/100 WBC (Bld) 0 % Normal 0-2 [facility] Comment on above: Performed By: #### L IP, CMPX, CDP #### [facility] [address] [place], [facility] Freight Rate Analyst: Nino Farias MD Eosinophils #/vol (Bld) 0.17 10*3/uL Normal 0.00-0.44 [facility] Comment on above: Performed By: #### L IP, CMPX, CDP #### [address] [place], [facility] Freight Rate Analyst: Nino Farias MD Eosinophils/100 WBC (Bld) 1 % Normal 1-4 [facility] Comment on above: Performed By: #### L IP, CMPX, CDP #### [address] [place], [facility] Freight Rate Analyst: Nino Farias MD Erythrocyte distribution width Ratio (RBC) 12.5 % Normal 11.8-14.4 [facility] Comment on above: Performed By: #### L IP, CMPX, CDP #### [address] [place], [facility] Freight Rate Analyst: Nino Farias MD Hematocrit Volume Fraction (Bld) 36.8 % Normal 36.3-47.1 [facility] Comment on above: Performed By: #### L IP, CMPX, CDP #### [address] [place], [place] [id number] Freight Rate Analyst: Nino Farias MD Hemoglobin mass conc (Bld) 11.6 g/dL Low 11.9-15.1 [facility] Comment on above: Performed By: #### L IP, CMPX, CDP #### [facility] [address] [place], [place] [address] Freight Rate Analyst: Nino Farias MD Immature granulocytes #/vol (Bld) 0 % Normal 0 [facility] Comment on above: Performed By: #### L IP, CMPX, CDP #### [facility] [address] [place], [facility] Freight Rate Analyst: Nino Farias MD Lymphocytes #/vol (Bld) 2.56 10*3/uL Normal 1.10-3.70 [facility] Comment on above: Performed By: #### L IP, CMPX, CDP #### [facility] [address] [place], [facility] Freight Rate Analyst: Nino Farias MD Lymphocytes/100 WBC (Bld) 18 % Low 24-43 [facility] Comment on above: Performed By: #### L IP, CMPX, CDP #### [facility] [address] [place], [place] [id number] Freight Rate Analyst: Nino Farias MD MCH Entitic mass (RBC) 30.6 pg Normal 25.2-33.5 [facility] Comment on above: Performed By: #### L IP, CMPX, CDP #### [address] [place], [facility] Freight Rate Analyst: Nino Farias MD MCHC mass conc (RBC) 31.5 g/dL Normal 28.4-34.8 [facility] Comment on above: Performed By: #### L IP, CMPX, CDP #### [facility] [address] [place] [address] Freight Rate Analyst: Nino Farias MD MCV Entitic volume (RBC) 97.1 fL Normal 82.6-102.9 [facility] Comment on above: Performed By: #### L IP, CMPX, CDP #### [facility] [address] [place], [place] [address]83 Freight Rate Analyst: Nino Farias MD Monocytes #/vol (Bld) 0.55 10*3/uL Normal 0.10-1.20 [facility] Comment on above: Performed By: #### L IP, CMPX, CDP #### [facility] [address] [place], [facility] Freight Rate Analyst: Nino Farias MD Monocytes/100 WBC (Bld) 4 % Normal 3-12 [facility] Comment on above: Performed By: #### L IP, CMPX, CDP #### [facility] [address] [place], [facility] Freight Rate Analyst: Nino Farias MD Neutrophil (Seg) 77 % High 36-65 [facility] Comment on above: Performed By: #### L IP, CMPX, CDP #### [facility] [address] [place], [facility] Freight Rate Analyst: Nino Farias MD NRBC Automated 0.0 per 100 WBC Normal 0.0 [facility] Comment on above: Performed By: #### L IP, CMPX, CDP #### [address] [place], [facility] Freight Rate Analyst: Nino Farias MD Platelet mean volume Entitic volume (Bld) 9.2 fL Normal 8.1-13.5 [facility] Comment on above: Performed By: #### L IP, CMPX, CDP #### [facility] [address] [place], [place] [id number] Freight Rate Analyst: Nino Farias MD Platelets #/vol (Bld) 305 10*3/uL Normal 138-453 [facility] Comment on above: Performed By: #### L IP, CMPX, CDP #### [facility] [address] [place], [facility] Freight Rate Analyst: Nino Farias MD RBC #/vol (Bld) 3.79 10*6/uL Low 3.95-5.11 [facility] Comment on above: Performed By: #### L IP, CMPX, CDP #### [facility] [address] [place] [address] Freight Rate Analyst: Nino Farias MD WBC #/vol (Bld) 14.7 10*3/uL High 3.5-11.3 [facility] Comment on above: Performed By: #### L IP, CMPX, CDP #### [facility] [address] [place], [place] 1914083 Freight Rate Analyst: Nino Farias MD Auto Diff Performed NOT REPORTED Normal [facility] Comment on above: Performed By: #### L IP, CMPX, CDP #### [facility] [address] [place] [address] Dr. [place], [place] [address] Freight Rate Analyst: Nino Farias MD Platelets #/vol (Bld) NOT REPORTED Normal [facility] Comment on above: Performed By: #### L IP, CMPX, CDP #### [address] [place], [place] [address]83 Freight Rate Analyst: Nino Farias MD RBC morphology finding Nom (Bld) NOT REPORTED Normal [facility] Comment on above: Performed By: #### L IP, CMPX, CDP #### [facility] [address] [place], [place] 695[address]3 Freight Rate Analyst: Nino Farias MD WBC Morphology NOT REPORTED Normal [facility] Comment on above: Performed By: #### L IP, CMPX, CDP #### [facility] [address] [place], [place] 2389483 Freight Rate Analyst: Nino Farias MD Comp Metabolic Pr/rfx MGon 0 09-08-2018 ALT enzyme act/vol U/L Low 5-33 [facility] Comment on above: Performed By: #### L IP, CMPX, CDP #### [facility] [address] [place] [address] Freight Rate Analyst: Nino Farias MD (cont.) [facility] Comment on above: Result Comment: Aver age GFR for 50-59 years old: 93 mL/min/1.73sq m Chronic Kidney Disease: <60 mL/min/1.73sq m Kidney failure: <15 mL/min/1.73sq m eGFR calculated using average adult body mass. Additional eGFR calculator available at: http://www.[employer]/multiple_crcl_2011.htm Performed By: #### L IP, CMPX, CDP #### [facility] [address] [place] [address] Freight Rate Analyst: Nino Farias MD Albumin mass conc 4.0 g/dL Normal 3.5-5.2 [facility] Comment on above: Performed By: #### L IP, CMPX, CDP #### [facility] [address] [place] [address] Freight Rate Analyst: Nino Farias MD Albumin/Globulin mass ratio 1.3 {ratio} Normal 1.0-2.5 [facility] Comment on above: Performed By: #### L IP, CMPX, CDP #### [facility] [address] [place] [address] Freight Rate Analyst: Nino Farias MD Alkaline Phos 58 U/L Normal 35-104 [facility] Comment on above: Performed By: #### L IP, CMPX, CDP #### [facility] [address] [place] [address] Freight Rate Analyst: Nino Farias MD Anion gap molar conc 8 mmol/L Low 9-17 [facility] Comment on above: Performed By: #### L IP, CMPX, CDP #### [facility] [address] [place] [address] Freight Rate Analyst: Nino Farias MD AST enzyme act/vol 20 U/L Normal <32 [facility] Comment on above: Performed By: #### L IP, CMPX, CDP #### [facility] [address] [place] [address] Freight Rate Analyst: Nino Farias MD Bilirubin Ql (U) 0.17 mg/dL Low 0.3-1.2 [facility] Comment on above: Performed By: #### L IP, CMPX, CDP #### [facility] [address] [place] [address] Freight Rate Analyst: Nino Farias MD BUN/CRE Ratio 15 Normal 9-20 [facility] Comment on above: Performed By: #### L IP, CMPX, CDP #### [facility] [address] [place] [address] Freight Rate Analyst: Nino Farias MD Calcium mass conc 9.3 mg/dL Normal 8.6-10.4 [facility] Comment on above: Performed By: #### L IP, CMPX, CDP #### [facility] [address] [place] [address] Freight Rate Analyst: Nino Farias MD Chloride molar conc 97 mmol/L Low 98-107 [facility] Comment on above: Performed By: #### L IP, CMPX, CDP #### [facility] [address] [place], [place] 0195683 Freight Rate Analyst: Nino Farias MD CO2 molar conc 31 mmol/L Normal 20-31 [facility] Comment on above: Performed By: #### L IP, CMPX, CDP #### [facility] [address] [place] [address] Freight Rate Analyst: Nino Farias MD Creatinine mass conc 1.22 mg/dL High 0.50-0.90 [facility] Comment on above: Performed By: #### L IP, CMPX, CDP #### [facility] [address] [place], [place] 1561583 Freight Rate Analyst: Nino Farias MD GFR, Amer 55 mL/min Low >60 [facility] Comment on above: Performed By: #### L IP, CMPX, CDP #### [facility] [address] [place], [place] 675[address]83 Freight Rate Analyst: Nino Farias MD GFR,non Amer 45 mL/min Low >60 [facility] Comment on above: Performed By: #### L IP, CMPX, CDP #### [facility] [address] [place], [place] 4970783 Freight Rate Analyst: Nino Farias MD Glucose mass conc 93 mg/dL Normal 70-99 [facility] Comment on above: Performed By: #### L IP, CMPX, CDP #### [facility] [address] [place], [place] 4825683 Freight Rate Analyst: Nino Farias MD Potassium molar conc 4.5 mmol/L Normal 3.7-5.3 [facility] Comment on above: Performed By: #### L IP, CMPX, CDP #### [facility] [address] [place], [place] 389[address]83 Freight Rate Analyst: Nino Farias MD Protein mass conc 7.0 g/dL Normal 6.4-8.3 [facility] Comment on above: Performed By: #### L IP, CMPX, CDP #### [facility] [address] [place], [place] 1130783 Freight Rate Analyst: Nino Farias MD Sodium molar conc 136 mmol/L Normal 135-144 [facility] Comment on above: Performed By: #### L IP, CMPX, CDP #### [facility] [address] [place], [place] 3436083 Freight Rate Analyst: Nino Farias MD Staging: Normal [facility] Comment on above: Result Comment: Stag e 1: Some kidney damage normal GFR Stage 2: Mild kidney damage GFR 60-89 Stage 3: Moderate kidney damage GFR 30-59 Stage 4: Severe kidney damage GFR 15-29 Stage 5: Severe kidney damage GFR <15 ESRD - chronic treatment by dialysis or transplant Performed By: #### L IP, CMPX, CDP #### [facility] [address] [place], [place] 3780583 Freight Rate Analyst: Nino Farias MD Urea nitrogen mass conc 18 mg/dL Normal 6-20 [facility] Comment on above: Performed By: #### L IP, CMPX, CDP #### [facility] [address] [place] 8855383 Freight Rate Analyst: Nino Farias MD Lactic Acidon 09-08-2018 Lactate molar conc 1.2 mmol/L Normal 0.5-2.2 [facility] Comment on above: Performed By: #### L AC #### [facility] [address] [place], [place] 4591483 Freight Rate Analyst: Nino Farias MD Lipaseon 09-08-2018 Lipase enzyme act/vol 27 U/L Normal 13-60 [facility] Comment on above: Performed By: #### L IP, CMPX, CDP #### [facility] [address] [place], [place] 8846083 Freight Rate Analyst: Nino Farias MD UA w/Reflex Cultureon 2018 Acetoacetic Acid,Ur Negative Normal NEG [facility] Comment on above: Performed By: #### U MICAO, UAX #### [facility] [address] [place] [address] Freight Rate Analyst: Nino Farias MD Bilirubin.direct mass conc SMALL Abnormal NEG [facility] Comment on above: Performed By: #### U MICAO, UAX #### [facility] [address] [place] [address] Freight Rate Analyst: Nino Farias MD Color Nom (U) YELLOW Normal YEL [facility] Comment on above: Performed By: #### U MICAO, UAX #### [facility] [address] [place] [address] Freight Rate Analyst: Nino Farias MD Glucose mass conc Negative Normal [facility] Comment on above: Performed By: #### U MICAO, UAX #### [facility] [address] [place] [address] Freight Rate Analyst: Nino Farias MD Hemoglobin mass conc (Bld) Negative Normal [facility] Comment on above: Performed By: #### U MICAO, UAX #### [facility] [address] [place], [place] [address]03[address]83 Freight Rate Analyst: Nino Farias MD Leuckocyte Esterase Negative Normal [facility] Comment on above: Performed By: #### U MICAO, UAX #### [facility] [address] [place] [address] Freight Rate Analyst: Nino Farias MD Nitrite,Ur Negative Normal [facility] Comment on above: Performed By: #### U MICAO, UAX #### [facility] [address] [place], [place] 437[address]83 Freight Rate Analyst: Nino Farias MD PH,Ur 5.5 Normal 5.0-9.0 [facility] Comment on above: Performed By: #### U MICAO, UAX #### [facility] [address] [place] [address] Freight Rate Analyst: Nino Farias MD Protein mass conc Negative Normal [facility] Comment on above: Performed By: #### U MICAO, UAX #### [facility] [address] [place], [place] 768[address]83 Freight Rate Analyst: Nino Farias MD Spec. [place],Ur 1.010 Normal 1.010-1.020 [facility] Comment on above: Performed By: #### U MICAO, UAX #### [facility] [address] [place], [place] [address]85[address]83 Freight Rate Analyst: Nino Farias MD Turbidity CLEAR Normal CLEAR [facility] Comment on above: Performed By: #### U MICAO, UAX #### [facility] [address] [place] [address] Freight Rate Analyst: Nino Farias MD Urobilinogen,Ur Normal Normal NORM [facility] Comment on above: Performed By: #### U MICAO, UAX #### [facility] [address] [place], [place] 356[address]83 Freight Rate Analyst: Nino Farias MD Comment NOT REPORTED Normal [facility] Comment on above: Performed By: #### U MICAO, UAX #### [facility] [address] [place], [facility] Freight Rate Analyst: Nino Farias MD Urinalysis,Microon 9 ----- Normal [facility] Comment on above: Performed By: #### U MICAO, UAX #### [facility] [address] [place], [place] 3543583 Freight Rate Analyst: Nino Farias MD Bacteria LM.HPF #/area (Urine sed) TRACE Abnormal NONE [facility] Comment on above: Performed By: #### U MICAO, UAX #### [facility] [address] [place], [place] 333[address]83 Freight Rate Analyst: Nino Farias MD Epithelial cells LM.HPF #/area (Urine sed) None Normal 0-25 [facility] Comment on above: Performed By: #### U MICAO, UAX #### [facility] [address] [place], [place] 6474283 Freight Rate Analyst: Nino Farias MD RBC #/vol (U) None Normal 0-2 [facility] Comment on above: Performed By: #### U MICAO, UAX #### [facility] [address] [place] [address] Freight Rate Analyst: Nino Farias MD WBC #/vol (U) 0 TO 2 Normal 0-5 [facility] Comment on above: Performed By: #### U MICAO, UAX #### [facility] [address] [place] [address] Freight Rate Analyst: Nino Farias MD Amorphous sediment LM Ql (Urine sed) NOT REPORTED Normal NONE [facility] Comment on above: Performed By: #### U MICAO, UAX #### [facility] [address] [place] [address] Freight Rate Analyst: Nino Farias MD Casts LM.LPF #/area (Urine sed) NOT REPORTED Normal [facility] Comment on above: Performed By: #### U MICAO, UAX #### [facility] [address] [place] [address] Freight Rate Analyst: Nino Farias MD Crystals LM Nom (Urine sed) NOT REPORTED Normal [facility] Comment on above: Performed By: #### U MICAO, UAX #### [facility] [address] [place] [address] Freight Rate Analyst: Nino Farias MD Epithelial, Renal NOT REPORTED Normal 0 [facility] Comment on above: Performed By: #### U MICAO, UAX #### [facility] [address] [place] [address] Freight Rate Analyst: Nino Farias MD Mucus Strands NOT REPORTED Normal [facility] Comment on above: Performed By: #### U MICAO, UAX #### [facility] [address] [place] [address] Freight Rate Analyst: Nino Farias MD Other Observations NOT REPORTED Normal NREQ [facility] Comment on above: Performed By: #### U MICAO, UAX #### [facility] [address] [place] [address] Freight Rate Analyst: Nino Farias MD Trichomonas NOT REPORTED Normal NONE [facility] Comment on above: Performed By: #### U MICAO, UAX #### [facility] [address] [place] [address] Freight Rate Analyst: Nino Farias MD Yeast LM Ql (Urine sed) NOT REPORTED Normal NONE [facility] Comment on above: Performed By: #### U MICAO, UAX #### [facility] [address] [place] [address] Freight Rate Analyst: Nino Farias MD Vital Signs Date Time Vital Sign Value Performing Clinician Faci lity 07-05-2023 22:13-0500 Diastolic blood pressure 74 mm[Hg] Arsenio Martin [facility] 07-05-2023 22:13-0500 Heart rate 62 /min Arsenio Martin [facility] 07-05-2023 22:13-0500 Mean blood pressure 85 mm[Hg] Arsenio Martin [facility] 07-05-2023 22:13-0500 Respiratory rate 14 /min Arsenio Martin [facility] 07-05-2023 22:13-0500 SaO2% (BldA) [Mass fraction] 99 % Arsenio Martin [facility] 07-05-2023 22:13-0500 Systolic blood pressure 107 mm[Hg] Arsenio Martin [facility] 07-05-2023 21:49-0500 Diastolic blood pressure 69 mm[Hg] Arsenio Martin [facility] 07-05-2023 21:49-0500 Heart rate 59 /min Arsenio Martin [facility] 07-05-2023 21:49-0500 Mean blood pressure 80 mm[Hg] Arsenio Mario [facility] 07-05-2023 21:49-0500 Respiratory rate 15 /min Arsenio Mario [facility] 07-05-2023 21:49-0500 SaO2% (BldA) [Mass fraction] 97 % Arsenio Mario [facility] 07-05-2023 21:49-0500 Systolic blood pressure 101 mm[Hg] Arsenio Mario [facility] 07-05-2023 21:02-0500 Diastolic blood pressure 77 mm[Hg] Arsenio Mario [facility] 07-05-2023 21:02-0500 Heart rate 60 /min Arsenio Mario [facility] 07-05-2023 21:02-0500 Mean blood pressure 86 mm[Hg] Arsenio Mario [facility] 07-05-2023 21:02-0500 Respiratory rate 16 /min Arsenio Mario [facility] 07-05-2023 21:02-0500 SaO2% (BldA) [Mass fraction] 99 % Arsenio Mario [facility] 07-05-2023 21:02-0500 Systolic blood pressure 105 mm[Hg] Arsenio Mario [facility] 07-05-2023 17:45-0500 Body temperature 97.52 [degF] Arsenio Mario [facility] 07-05-2023 16:27-0500 Body temperature 96.44 [degF] Arsenio Mario [facility] 07-05-2023 15:15-0500 gluc 136 mg/dL Arsenio Mario [facility] 07-05-2023 15:15-0500 gluc Arsenio Martin [facility] 07-05-2023 15:02-0500 Body temperature 95.9 [degF] Arsenio Mario [facility] 07-05-2023 15:02-0500 Heart rate 54 /min Arsenio Mario [facility] 07-05-2023 15:02-0500 Respiratory rate 16 /min Arsenio Mario [facility] 08-09-2022 17:25-0400 Diastolic blood pressure 64 mm[Hg] Arsenio Mario [facility] 08-09-2022 17:25-0400 Heart rate 75 /min Arsenio Mario [facility] 08-09-2022 17:25-0400 Mean blood pressure 83 mm[Hg] Arsenio Mario [facility] 08-09-2022 17:25-0400 Respiratory rate 16 /min Arsenio Mario [facility] 08-09-2022 17:25-0400 SaO2% (BldA) [Mass fraction] 96 % Arsenio Mario [facility] 08-09-2022 17:25-0400 Systolic blood pressure 122 mm[Hg] Arsenio Mario [facility] 08-09-2022 16:00-0400 Diastolic blood pressure 56 mm[Hg] Arsenio Mario [facility] 08-09-2022 16:00-0400 Heart rate 64 /min Arsenio Mario [facility] 08-09-2022 16:00-0400 Mean blood pressure 72 mm[Hg] Arsenio Mario [facility] 08-09-2022 16:00-0400 SaO2% (BldA) [Mass fraction] 92 % Arsenioulises Martin [facility] 08-09-2022 16:00-0400 Systolic blood pressure 103 mm[Hg] Arsenio Martin [facility] 08-09-2022 15:00-0400 Diastolic blood pressure 67 mm[Hg] Arsenioulises Martin [facility] 08-09-2022 15:00-0400 Heart rate 61 /min Arsenio Martin [facility] 08-09-2022 15:00-0400 Mean blood pressure 80 mm[Hg] Arsenio Martin [facility] 08-09-2022 15:00-0400 Systolic blood pressure 106 mm[Hg] Arsenio Martin [facility] 08-09-2022 14:03-0400 SaO2% (BldA) [Mass fraction] 94.1 % Arsenio Martin [facility] Resp Auto SS 08-09-2022 13:10-0400 Body temperature 98.24 [degF] Arsenio Martin [facility] 08-09-2022 13:10-0400 Heart rate 70 /min Arsenio Martin [facility] 08-09-2022 13:10-0400 Respiratory rate 18 /min Arsenio Martin [facility] Encounters Encounter Date Encounter Type Care Provider Facility Start: 07-31-2023 End: 07-31-2023 ambulatory VINAY CHAPA [facility] Start: 07-11-2023 Evaluation and management of inpatient LOREE CHANCE [facility] Start: 07-08-2023 Evaluation and management of [facility] Start: 07-06-2023 Evaluation [facility] management [facility] Start: 07-06-2023 End: 07-11-2023 Evaluation and management of inpatient ARSENIO MARTIN [facility] Start: 07-05-2023 End: 07-06-2023 Emergency department patient visit Arsenio Martin Facility[place] Start: 07-05-2023 End: 07-05-2023 Emergency department patient visit Arsenio Martin [facility] Start: 06-29-2023 Evaluation and management of inpatient ROSALBA MOSS [facility] Start: 06-29-2023 End: 07-02-2023 Evaluation and management of inpatient SOCORRO Zayas MATTHEW [facility] Start: 08-22-2022 End: 08-24-2022 Evaluation and management of inpatient DR ЕКАТЕРИНА ROBERT . Facility: Start: 08-09-2022 End: 08-09-2022 Emergency department patient visit Arsenio Martin Facility[place] Start: 08-09-2022 End: 08-09-2022 Emergency department patient visit Arsenio Martin [facility] Start: 07-30-2022 End: 08-01-2022 Evaluation and management of inpatient DR ЕКАТЕРИНА ROBERT . Facility: Start: 07-27-2022 End: 07-28-[address] ЕКАТЕРИНА ROBERT . Facility:[facility] Start: 05-08-2022 End: 05-09-[address] ЕКАТЕРИНА ROBERT . Facility:[facility] Start: 01-31-2022 End: 01-31-[address] ЕКАТЕРИНА ROBERT . Facility: Start: 11-01-2021 End: 11-03-2021 Evaluation and management of inpatient SAVANNAHI SCOTTY Facility:[facility] Start: 10-31-2021 End: 11-01-2021 Evaluation and management of inpatient DR ЕКАТЕРИНА ROBERT . Facility:[facility] Start: 09-28-2021 End: 09-29-[address] ЕКАТЕРИНА ROBERT . Facility:[facility] Start: 09-06-2021 End: 09-07-[address] ЕКАТЕРИНА ROBERT . Facility:[facility] Start: 03-04-2021 End: 03-04-2021 Emergency department patient visit Magdalena Oconnor Facility:[facility] Start: 09-08-2018 End: 09-08-2018 Emergency department patient visit KEISHA DORADO JR [facility] Procedures Date Procedure Procedure Detail Performing Clinician Start: 08-02-2022 Microscopic examinat ion of blood, culture DR ЕКАТЕРИНА ROBERT . Comment on above: Performed By: #### B [id number] ####[facility] [id number] [place], [place] [address]KwShaun Dockery Yañez Start: 11-02-2021 Antibody screen HANI SA AD Comment on above: Performed By: #### 3 [id number], [id number] #### [facility] [address] Start: 07-16-2019 Phalangectomy of toe Fabián [...] Martin Payers Date Payer Category Payer Medicare [id number] 2021 Self-pay 2018 Medicare [id number] 1960 Unknown [id number] 2.16.8 [id number] 1961 Unknown [id number] 2.16.8 [id number] 1961 Unknown [id number] 2.16.84 [id number] 1961 Unknown [id number] 2.16.84 [id number] 1961 Unknown [id number] 2.16.84 [id number] 1961 Unknown [id number] 2.16.84 [id number] 1961 Unknown [id number] 2.16.84 [id number] 1961 Unknown [id number] 2.16.84 [id number] 1961 Unknown [id number] 2.16.84 [id number] 1961 Unknown [id number] 2.16.84 [id number] 1961 Unknown [id number] 2.16.8 [id number] 1961 Unknown [id number] 2.16.8 [id number] 1959 Unknown [id number] Unknown [id number] 2.16.8 [id number] Social History Date Type Detail Facility Start: 08-09-2022 Tobacco smoking status Heavy t obacco smoker (finding) [facility] Comment on above: 2 cigarettes a day Sex Assigned At Female [facility] Functional Status Date Assessment Result Facility 07-05-2023 Functional Status N/A [facility] 08-09-2022 Functional Status N/A [facility] Clinical Notes 11-03-2021 to 07-11-2023 [...] Center 07/17/2023 10:20 AM Socorro Oviedo NP ELBERT Moreno 08/06/2023 1:30 PM [facility] CV CLINIC DEVICE CHECK [facility] CARD [place] HeartVAS Your medication list START taking these [...] Results from last 7 days Lab Units [id number] WBC AUTO 10*3/uL 11.52* 10.52 < > 14.42* HEMOGLOBIN g/dL 13.1 14.0 < > 12.6 HEMATOCRIT % 40.9 42.6 < > 39.0 MCV fL 87.0 86.2 < > 86.5 PLATELETS AUTO 10*3/uL 339 329 < > 321 INR -- -- -- 1.00 < > = values in this interval not displayed. Chemistry: Results from last 7 days Lab Units 07/11/2352807/10/2342707/09/23 0445 07/08/23 0508 07/07/2341707/06/23 0238 SODIUM mmol/L 135* 136 136 < [...] (1 (more content not included)... [facility] 07-11-2023 Note Occupational Therapy Occupational Therapy Evaluation [...] Level of Function Prior Function Level of [place]: Independent with ADLs and functional transfers, Independent [...] Eating meals?: None (Independent) Total Score OT [facility]: 24 Assessment/Plan OT Assessment OT Education/Comments: (PPM handout issued and discussed with good return demo) Plan OT Plan: No skilled OT OT Discharge Recommendations: Home OT - Discharge Recommendations Placed: Yes OT Goals Multi-Disciplinary Problems (from Occupational Therapy) Active Problems Not on file [facility] 07-11-2023 Note UTP CARDIOLOGY PROGR ESS NOTE [...] -- -- 85 16 92 % -- 02/27/24 1217 92/65 36.5 ???C (97.7 ???F) Temporal [...] Normal heart size. Electronically signed: Denver Hernandez. [facility] 06/29/23: Final Impression: 1) Coronary angiogram shows stable CAD 2) right heart catheterization shows severely decompensated heart failure with mean wedge pressure 35 mmHg Plan: 1) optimal med therapy for CAD and HFpEF 2) Aspirin and high intensity statin therapy for CAD 3) optimize medical therapy for HFpEF as tolerated 4) outpatient follow-up with [place] [facility] Echo 06/29/23: Left Ventricle: The left ventricle is normal size. Global left ventricular sys (more content not included)... [facility] 07-11-2023 Note Hospital Medicine Daily Progress Note - 07/11/2023 8:24 AM; Room: [address] [place] [address] Admission: 07/06/2023 12:25 AM; Length of stay: 5 days THE HOSPITALIST TEAM PREFERS TO USE [employer] CHAT FOR COMMUNICATION 7AM-7PM. IF I DO NOT RESPOND WITHIN 15 MINUTES, PLEASE PAGE ME/CALL THROUGH THE SALES SUPPORT ASSISTANT. FROM 7PM-7AM, PLEASE PAGE [phone](COVR) Code Status: Full Code Barriers to Discharge: [...] from last 7 days Lab Units 07/11/23 0507/10/23 0428 07/07/23 0418 07/06/23 0238 WBC AUTO [...] LDL 95 07/06/2023 No results found for: [id number] , IRON , TIBC , C3 , [...] heart (more content not included)... [facility] 07-10-2023 Note Indications for dual -chamber pacemaker [...] of the upper extremity Loree Chance M.D. [facility] Psychologist Clinicalsemiconductor development technician and Pediatrics Director: Cardiac Electrophysiology Program [facility] 07-10-2023 Note Patient: Vivian Dela Cruz or Procedure Information Date/Time: 07/10/231499 Procedure: Implant PPM Location: [facility] EDIT[facility] 1 / [facility]ULAR [facility] (Cath) Providers: Loree Chance [...] patient who. Additional Equipment Requests [facility] 07-10-2023 Note UTP CARDIOLOGY PROGR ESS NOTE [...] lock IV AND sodium chloride CV Testing: [facility] 06/29/23: Final Impression: 1) Coronary angiogram shows stable CAD 2) right heart catheterization shows severely decompensated heart failure with mean wedge pressure 35 mmHg Plan: 1) optimal med therapy for CAD and HFpEF 2) Aspirin and high intensity statin therapy for CAD 3) optimize medical therapy for HFpEF as tolerated 4) outpatient follow-up with [place] [facility] Echo 06/29/23: Left Ventricle: The left [...] 86 QT Interval 466 QTC CALCULATION(BAZETT) 476 R[place] 34 T Wave [place] [address] & Marked T wave abnormality, consider anterolateral ischemia Prolonged QT Abnormal ECG When compared with ECG of 06-JUL-2023 14:34, T wave inversion less evident in Lateral Confirmed by Yoan GRIJALVA, KIERA Rainey (57) on 07/08/2023 12:23:36 PM Assessment/Plan Junctional bradycardia Abnormal EKG- ST/T wave changes concerning for ischemia- [facility] showed stable CAD Ventric (more content not included)... [facility] 07-10-2023 Note Hospital Medicine Daily Progress Note - 07/10/2023 8:08 AM; Room: [address] [place] [address] Admission: 07/06/2023 12:25 AM; Length of stay: 4 days THE HOSPITALIST TEAM PREFERS TO USE [employer] CHAT FOR COMMUNICATION 7AM-7PM. IF I DO NOT RESPOND WITHIN 15 MINUTES, PLEASE PAGE ME/CALL THROUGH THE SALES SUPPORT ASSISTANT. FROM 7PM-7AM, PLEASE PAGE [phone](COVR) Code Status: Full Code Barriers to Discharge: [...] from last 7 days Lab Units 07/09/2344407/08/23 0508 07/07/23 0418 07/06/23 0238 WBC AUTO [...] Results from last 7 days Lab Units 07/10/23 04207/09/23 0445 07/08/23 0508 07/07/23 0418 07/06/23 0238 SODIUM mmol/L 136 136 136 135* [...] LDL 95 07/06/2023 No results found for: [id number] , IRON , TIBC , C3 , [...] need to arrange for her transportation needs; junior technical writer provided printed information to Pt for local [employer] for Pt (more content not included)... [facility] 07-09-2023 Note Patient admitted to the hospital for: Bradycardia. Chart echo from 06/29/2023 reports: EF 60%. Echo report does Not qualify for Cardiac Rehab services per CMS eligibility criteria. A Cardiac Rehab referral must also meet CMS criteria. Marline Suarez RN, BSN Cardiopulmonary Rehab Coordinator [facility] 07-09-2023 Note Cardiology Inpatient Progress Note Subjective [...] 07/08/23 1940 85/54 36.6 ???C (97.9 ???F) Temporal 67 20 96 % -- 07/08/23 1633 [...] 86 QT Interval 466 QTC CALCULATION(BAZETT) 476 R-[place] 34 T Wave [place] [address] & Marked [...] on 07/08/2023 12:23:36 PM 06/29/23 [facility] Final Impression: 1) Coronary angiogram shows stable CAD 2) right heart catheterization shows severely decompensated heart failure with mean wedge pressure 35 mmHg Plan: 1) optimal med therapy for CAD and HFpEF 2) Aspirin and high intensity statin therapy for CAD 3) optimize medical therapy for HFpEF as tolerated 4) outpatient follow-up with [place] [facility] Hemodynamic Data: RA: 17 mmHg RV: [...] of bradycardia. Patient has been transferred to [facility] for consideration of pacemaker placement. As per patient, her heart rate was 18 at the outside hospital, however I could not confirm from any documentation. During the current hospitalization, so far patient's heart rate has been ranging 40-50. EKG performed in the ED showed diffuse T wave inversions with junctional rhythm. Telemetry shows sinus bradycardia a (more content not included)... [facility] 07-09-2023 Note Hospital Medicine Daily Progress Note - 07/09/2023 11:10 AM; Room: [address] [place] [address] Admission: 07/06/2023 12:25 AM; Length of stay: 3 days THE HOSPITALIST TEAM PREFERS TO USE [employer] FOR COMMUNICATION 7AM-7PM. IF I DO NOT RESPOND WITHIN 15 MINUTES, PLEASE PAGE ME/CALL THROUGH THE SALES SUPPORT ASSISTANT. FROM 7PM-7AM, PLEASE PAGE [phone](COVR) Code Status: Full Code Barriers to Discharge: [...] LDL 95 07/06/2023 No results found for: [id number] , IRON , TIBC , C3 , [...] Planning TBD Signed Barrett Haider MD MS4 [facility] 07/09/2023 11: (more content not included)... [facility] 07-08-2023 Note ---- Attestation signed by Kiera [...] 07/08/23 0802 84/55 36.4 ???C (97.5 ???F) [facility] 67 21 98 % -- 07/08/23 [...] -- 07/07/232024 88/53 36.8 ???C (98.2 ???F) [facility] 65 17 92 % -- 02/24/24 1055 90/60 36.6 ???C (97.9 ???F) Temporal [...] 86 QT Interval 466 QTC CALCULATION(BAZETT) 476 R[place] 34 T Wave [place] [address] & Marked T wave abnormality, consider anterolateral ischemia Prolonged QT Abnormal ECG When compared with ECG of 06-JUL-2023 14:34, T wave inversion less evident in Lateral Lab Results Component Value Date CKTOTAL 36.0 07/06/2023 TROPONINI 0.12 () 07/06/2023 Complete Echo (TTE) w/wo Imaging Agent, Strain, 3D, Bubble Study Result Date: 06/29/2023 1 1 [facility] Heart Station [address] [place] [address] [phone] (fax) Echocardiogram-[facility] Name: VIVIAN VANN Study Date: 06/29/2023 12:30 PM B/P: 135 mmHg/89 mmHg HR: Date of : 1960 Location: [facility] Height: 67 in. Age: 63 year(s) [...] mitr (more content not included)... [facility] 07-08-2023 Note Hospital Medicine Daily Progress Note - 07/08/2023 8:42 AM; Room: [address] [place] [address] Admission: 07/06/2023 12:25 AM; Length of stay: 2 days THE HOSPITALIST TEAM PREFERS TO USE [employer] CHAT FOR COMMUNICATION 7AM-7PM. IF I DO NOT RESPOND WITHIN 15 MINUTES, PLEASE PAGE ME/CALL THROUGH THE SALES SUPPORT ASSISTANT. FROM 7PM-7AM, PLEASE PAGE [phone](COVR) Code Status: Full Code Barriers to Discharge: [...] Lab Units 07/08/23 0508 07/07/238 07/06/23 0238 SODIUM mmol/L 136 135* 135* [...] LDL 95 07/06/2023 No results found for: [id number] , IRON , TIBC , C3 , [...] Planning TBD Signed Barrett Haider MD MS4 [facility] 07/08/2023 8:42 AM [facility] 07-07-2023 Note ---- Attestation signed by Kiera [...] 07/06/23 1725 91/66 36.4 ???C (97.6 ???F) [facility] 64 13 97 % -- -- [...] 84 QT Interval 434 QTC CALCULATION(BAZETT) 451 R-[place] 23 T Wave [place] [address] & Marked T wave abnormality, consider anterolateral ischemia Abnormal ECG When compared with ECG of 06-JUL-2023 00:53, T wave inversion less evident in Inferior lead Confirmed by Vinay Chapa (80) on 07/06/2023 4:39:48 PM Lab Results Component Value Date CKTOTAL 36.0 07/06/2023 TROPONINI 0.12 (HH) 07/06/2023 Complete Echo (TTE) w/wo Imaging Agent, Strain, 3D, Bubble Study Result Date: 06/29/2023 1 1 [facility] Heart Station [address] [facility] [place] [address] [phone] (fax) Echocardiogram-[facility] Name: VIVIAN VANN Study Date: 06/29/2023 12:30 PM B/P: 135 mmHg/89 mmHg HR: Date of : 1960 Location: [facility] Height: 67 in. Age: 63 year(s) [...] Ventricle: (more content not included)... [facility] 07-07-2023 Note [facility] Medicine Daily Progress Note - 07/07/2023 10:19 AM; [facility] Admission: 07/06/2023 12:25 AM; Length of stay: 1 days THE HOSPITALIST TEAM PREFERS TO USE [employer] CHAT FOR COMMUNICATION 7AM-7PM. IF I DO NOT RESPOND WITHIN 15 MINUTES, PLEASE PAGE ME/CALL THROUGH THE SALES SUPPORT ASSISTANT. FROM 7PM-7AM, PLEASE PAGE [phone](COVR) Code Status: Full Code Barriers to Discharge: [...] Results from last 7 days Lab Units 07/07/238 07/06/23 0238 WBC AUTO 10*3/uL 15.03* 14.42* HEMOGLOBIN g/dL 12.4 12.6 HEMATOCRIT % 38.8 39.0 MCV fL 87.4 86.5 PLATELETS AUTO 10*3/uL 300 321 INR -- 1.00 Chemistry: Results from last 7 days Lab Units 07/07/238 07/06/23 0238 07/02/23 0425 SODIUM mmol/L 135* 135* 135* POTASSIUM mmol/L 4.6 4.6 3.7 CHLORIDE (more content not included)... [facility] 07-06-2023 Note communication receiv ed that Patient stating does not have transportation to return home at discharge At 07/02/2023 discharge, [facility] provided a one-time courtesy taxi cab transportation for Patient to return to her home (Patient's residence is 57 [address]-way from [facility] and cost for taxi cab was $146); [facility] is not able to provide another taxi cab. The following information was printed and provided to the Patient to make her own transportation arrangements for once she is medically cleared for discharge: [facility] hospital address is [address] [place] [address] [employer] to ask if non-emergency medical transportation is a covered benefit of the specific plan (https://www.[employer]/contact-us/ohi o/) Taxis in [place] (https://[employer].jonnie.ks.us/3086/Taxi) [employer] [phone] (8294) [employer] [phone] [facility] 07-06-2023 Note 07/06/23 1625 Referral Data 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 Patient Information Primary Caregiver Self Activities [...] need to arrange for her transportation needs; junior technical writer provided printed information to Pt for local taxi [email or web address] companies for Pt to consider; [facility] unable to pay for another one-time courtesy taxi cab for 57miles one-way trip) [facility] 07-06-2023 Note 1526 junior technical writer attempted to meet with Pt to discuss discharge planning (including Patient will need to arrange her transportation once she is medically cleared to discharge to home); Patient not in bed; unable to complete [id number] 1542 junior technical writer attempted to meet with Pt to discuss discharge planning (including Patient will need to arrange her transportation once she is medically cleared to discharge to home); Patient caring for toileting hygiene; unable to complete [id number] [facility] 07-06-2023 Note 07/06/23 1219 Admission Assessment Questions [...] Discharge? Yes Does the patient have a nurse case manager assigned to them through their [...] link and activate MyChart? Yes [facility] 07-06-2023 Note ---- Attestation signed by Barrett [...] Progress Note - 07/06/2023 11:37 AM; Room: [address] [place] [address] Admission: 07/05/2023 11:50 PM; Length of stay: 1 days THE HOSPITALIST TEAM PREFERS TO USE [employer] CHAT FOR COMMUNICATION 7AM-7PM. IF I DO NOT RESPOND WITHIN 15 MINUTES, PLEASE PAGE ME/CALL THROUGH THE SALES SUPPORT ASSISTANT. FROM 7PM-7AM, PLEASE PAGE [phone](COVR) Code Status: Full Code Barriers to Discharge: [...] medi (more content not included)... [facility] 07-06-2023 Note . Hospital Medicine History and Physical 07/06/2023 1:19 AM THE HOSPITALIST TEAM PREFERS TO USE [employer] CHAT FOR COMMUNICATION 7AM-7PM. IF I DO NOT RESPOND WITHIN 15 MINUTES, PLEASE PAGE ME/CALL THROUGH THE SALES SUPPORT ASSISTANT. FROM 7PM-7AM, PLEASE PAGE [phone](COVR) Chief Complaint No chief complaint on file. History of Present Illness Vivian Vann is an 63 y.o. female who came from home with CP. This is a 63 years old female lady with a medical history of hypertension, tobacco smoking, A-fib, CHF. Came into the [facility] as a direct admit transfer from [...] Bradycardia 07/06/2023 NSTEMI (non-ST elevated myocardial infarction) ([facility]) 06/29/2023 Other forms of angina pectoris 06/29/2023 Hypomagnesemia 06/29/2023 Acute midline low back pain without sciatica 06/29/2023 Coronary arteriosclerosis 11/24/2021 Hyperlipidemia 11/24/2021 Type 2 diabetes mellitus ([facility]/HCC) 11/24/2021 Acute non-ST segment elevation myocardial infarction ([facility]) 11/24/2021 Cigarette smoker 11/24/2021 Assessment and Plan [...] this hospital stay by a member of [facility]. Past Medical History No past [...] of (more content not included)... [facility] 07-05-2023 Evaluation + Plan note Extrac florinda [...] Reflex 07/05/23 * Drug Screen Urine 07/05/23 [facility]02-19-2024 NotePatient admitted to the hospital for: NSTEMI. Review of the last noted chart Echo from 06/29/2023 reports: EF 60%. Reported echo result does not qualify for Cardiac Rehab services per CMS eligibility criteria for CHF. 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 No Patient's goal for discharge home RucCC screened; Pt declining HHC, SW Consult resolved 1340 Communication received that Pt needing transportation to home since was transferred here from [facility], does not drive, lives alone, does not have friends or family who can transport ([phone]) PC to [employer]; from [address] [place] [address] to [address] [place] [address] will be $146 Nurse Epidemiologist provided verbal estimate to supervisor ovens, verbal approval from supervisor ovens 1408 taxi cab transportation arranged; bedside RN notified Confirmation #: [id number] Passenger: VIVIAN VANN Phone Number: [phone] Pickup Date/Time: 07/02/2023 3:00 PM Pickup Address: [facility], [address] [place] [address], [address] Drop Off Address: [address] [place] [address]. Ride Notes: [facility] Note07/02/23 1017 Admission Assessment Questions Verify insurance [...] Discharge? Yes Does the patient have a nurse case manager assigned to them through their [...] able to send link and activate MyChart? [facility]02-19-2024 Note Attestation signed by Merritt Guerrero MD [...] Value Ventricular Rate 61 Atrial Rate 61 MD Interval 150 QRS DURATION 88 QT Interval 476 QTC CALCULATION(BAZETT) 479 P [place] 68 R-[place] 25 T Wave [place] 128 Impression Normal sinus rhythm Right atrial [...] Bubble Study Result Date: 06/29/2023 1 1 [facility] Heart Station [address] [place] [address] [phone] (fax) Echocardiogram-[facility] Name: VIVIAN VANN Study Date: 06/29/2023 12:30 PM B/P: 135 mmHg/89 mmHg HR: Date of : 1960 Location: [facility] Height: 67 in. Age: 63 year(s) [...] function. Dop (more content not included)...[facility]02-18-2024 [facility] Medicine Daily Progress Note - 07/01/2023 12:00 PM; Room: [facility] Admission: 06/29/2023 11:04 AM; Length of stay: 2 days THE HOSPITALIST TEAM PREFERS TO USE [employer] CHAT FOR COMMUNICATION 7AM-7PM. IF I DO NOT RESPOND WITHIN 15 MINUTES, PLEASE PAGE ME/CALL THROUGH THE SALES SUPPORT ASSISTANT. FROM 7PM-7AM, PLEASE PAGE [phone](COVR) Code Status: Full Code Barriers to Discharge: [...] Principal Problem: NSTEMI (non-ST elevated myocardial infarction) ([facility]) Active Problems: Hyperlipidemia Type 2 diabetes mellitus ([facility]) Other forms of angina pectoris Hypomagnesemia Acute [...] LDL 114 11/02/2021 No results found for: [id number] , IRON , TIBC , C3 , C4 , WENDI , CANCA , ASO , PSA , CEA , CA125 , CA199 , AFP , CA153 Imaging ECG 12 lead Normal sinus rhythm Right atrial (more content not included)...[facility] 07-01-2023 Note Attestation signed by Merritt Guerrero [...] Value Ventricular Rate 61 Atrial Rate 61 MD Interval 150 QRS DURATION 88 QT Interval 476 QTC CALCULATION(BAZETT) 479 P [place] 68 R-[place] 25 T Wave [place] 128 Impression Normal sinus rhythm Right atrial [...] Bubble Study Result Date: 06/29/2023 1 1 [facility] Heart Station [address] [place] [address] [phone] (fax) Echocardiogram-[facility] Name: VIVIAN VANN Study Date: 06/29/2023 12:30 PM B/P: 135 mmHg/89 mmHg HR: Date of : 1960 Location: [facility] Height: 67 in. Age: 63 year(s) [...] The r (more content not included)...[facility]02-17-2024 Note Attestation signed by Merritt Guerrero MD [...] Value Ventricular Rate 61 Atrial Rate 61 MD Interval 150 QRS DURATION 88 QT Interval 476 QTC CALCULATION(BAZETT) 479 P [place] 68 R-[place] 25 T Wave [place] 128 Impression Normal sinus rhythm Right atrial [...] Bubble Study Result Date: 06/29/2023 1 1 [facility] Heart Station [address] [place] [address] [phone] (fax) Echocardiogram-[facility] Name: VIVIAN VANN Study Date: 06/29/2023 12:30 PM B/P: 135 mmHg/89 mmHg HR: Date of : 1960 Location: [facility] Height: 67 in. Age: 63 year(s) [...] N (more content not included)... [facility]02-17-2024 NoteHospital Medicine Daily Progress Note - 06/30/2023 11:32 AM; Room: [address] [place] [address] Admission: 06/29/2023 11:04 AM; Length of stay: 1 days THE HOSPITALIST TEAM PREFERS TO USE [employer] CHAT FOR COMMUNICATION 7AM-7PM. IF I DO NOT RESPOND WITHIN 15 MINUTES, PLEASE PAGE ME/CALL THROUGH THE SALES SUPPORT ASSISTANT. FROM 7PM-7AM, PLEASE PAGE [phone](COVR) Code Status: Full Code Barriers to Discharge: [...] Principal Problem: NSTEMI (non-ST elevated myocardial infarction) (CMS/HCC) Active Problems: Hyperlipidemia Type 2 diabetes mellitus (CMS/HCC) Other forms of angina pectoris Hypomagnesemia Acute [...] LDL 114 11/02/2021 No results found for: QBURFOTI03 , IRON , TIBC , C3 , C4 , WENDI , CANCA , ASO , PSA , CEA , CA125 , CA199 , AFP , CA153 Imaging ECG 12 lead Normal sinus rhythm Right atrial enlargement ST & T wave abnormality, consider ante (more content not included)...[facility]02-16-2024 NotePatient: Vivian Vann Procedure Information Date/Time: 06/29/23 1655 Procedure: Coronary angiography Location: [facility] EDIT[facility] 3 / [facility] (Cath) Providers: Ortiz Aquino [...] who. Plan discussed with attending. [facility] Note Hospital Medicine History and Physical 06/29/2023 12:51 PM THE HOSPITALIST TEAM PREFERS TO USE [employer] CHAT FOR COMMUNICATION 7AM-7PM. IF I DO NOT RESPOND WITHIN 15 MINUTES, PLEASE PAGE ME/CALL THROUGH THE SALES SUPPORT ASSISTANT. FROM 7PM-7AM, PLEASE PAGE [phone](COVR) Chief Complaint Direct admission from [facility] for NSTEMI requiring cardiac cath History of Present Illness Vivian Vann is an 63 y.o. female who came from [facility] as direct asmission for NSTEMI. Patient presented 2/15/24 to [place] ED for c/o chest pain and lower back pain. Patient troponin level found to be 557 and EKG showed new ischemia and inverted T-waves, NSTEMI. She was given nitroglycerin and started on heparin drip. Patient is 1 year s/p stent placement at [facility] on plavix and aspirin. Dr. Chapa with cardiology agreed to patient transfer here to [facility] with hospital medicine admitting and cardiology [...] Low back pending. Laboratory workup here at [facility] shows CBC unremarkable w/ exception of [...] nursing note reviewed. Exam conducted with a checker in present. Constitutional: General: She is not in [...] Date Noted NSTEMI (non-ST elevated myocardial infarction) ([facility]) 06/29/2023 Assessment and Plan Chest pain Low Back Pain NSTEMI -Troponin 557 at [facility], troponin now 0.07 - aPTT 67.3, [...] with titratio (more content not included)...[facility]04-05-2023 NoteMicrobiology PROCEDURE: Blood Culture Charcoal [R1] SOURCE: [...] Locations R1: [facility] [address] [place] [address], [address] [place], [place] [address], Yneekm30 Sanders StreetComment on above:Performed By: #### [id number] ####[address] [id number] NoteMicrobiology PROCEDURE: Blood Culture Charcoal [R1] SOURCE: Blood BODY SITE: Arm L COLLECTED DATE/TIME: 08/09/2022 14:09 EDT RECEIVED DATE/TIME: 08/09/2022 14:17 EDT START DATE/TIME: 08/09/2022 14:17 EDT FREE TEXT SOURCE: lt ac Nic PA-C, Clinton C Nic PA-C, Clinton C FINAL REPORTS Final Report [] Verified Date/Time: 08/16/2022 15:58 EDT No growth at 7 days. Performing Locations R1: [facility] [address] [place] [address], [address] [place] [address], Mzziqq[address] Sanders StreetComment on above:Performed By: #### [id number] ####[address] [id number] Hospital Discharge instructions Patient Education 08/09/2022 16:50:59 [...] Follow these instructions at home: Medicines Take qphb-rhk-nocrito and prescription medicines (inhaled or pills) only [...] 02/07/2006 Document Revised: 04/12/2018 Document Reviewed: 06/04/2017 [employer] Patient Education 2020 [employer]. Follow Up Care 08/09/2022 13:09:28 With:Екатерина Robert Address: [address] [place], [place] [id number]- Business (1) When:08/12/2022 16:50:37 Comments:Call the office [...] you develop any new or worsening symptoms. [facility]03-29-2023 Evaluation + Plan noteExtracted from: Title:ED Note Author:Clinton Lucero PA-C Eliud e:08/09/22 COPD exacerbation (J44.1: Ch ronic obstructive [...] day(s), # 14 tab(s), Refills(s) 0, Pharmacy: [facility], 170.2, cm, 08/09/22 13:13:00 EDT, Height/Length [...] day(s), # 15 tab(s), Refills(s) 0, Pharmacy: [facility], 170.2, cm, 08/09/22 13:13:00 EDT, Height/Length [...] Charcoal 08/09/22 * Blood Culture Charcoal 08/09/22 [facility]06-23-2022 NoteMR#: [id number] I [facility] Pt. Name: Vivian Vann Admitted: 11/01/2021 Discharged: 11/03/2021 Date of : 1960 Physician: Tamie Fajardo MD DISCHARGE SUMMARY PRINCIPAL DIAGNOSIS: Phx-ZN-cicqqoydu myocardial infarction. SECONDARY DIAGNOSES: 1. Questionable small subsegmental PE in the right lower lobe, favored to be chronic per CT angio done outside facility. 2. Peptic ulcer disease. 3. Depression. 4. Chronic obstructive pulmonary disease. 5. THC use. 6. Nicotine use. HOSPITAL COURSE: Again, the patient was admitted to the hospital on 11/01/2021, with chest pain and she was found to have a tmf-HZ-ghpetcpde [place]. The patient underwent cardiac catheterization and [...] Fajardo MD Date Trans: 11/03/2021 01:10 P/laura [id number] cc: Gasper Avendano M.D. [facility] [address] [address] Robert M.D. [place] [address] [facility] [id number] [facility] Narrative No data available for this section [facility] No data available for this section [facility] No data available for this section [facility] Summary Purpose Family History No Family [...] DATE CREATED AUTHOR AUTHOR'S ORGANIZ ATION 01/06/2022 [facility] DATE CREATED AUTHOR AUTHOR'S ORGANIZ ATION 09/05/2022 [facility] DATE CREATED AUTHOR AUTHOR'S ORGANIZ ATION 07/13/2023 [facility] DATE CREATED AUTHOR AUTHOR'S ORGANIZ ATION 08/03/2023 [facility] DATE CREATED AUTHOR AUTHOR'S ORGANIZ ATION 08/04/2023 [facility] Patient Care team informatio n (unrecognized section and content) Personnel Name: Екатерина Robert MD Address: Address: [address] [place] [address] Personnel Name: Екатерина Robert MD Address: Address: [address] [place] [address] FOR RECORDS PERTAINING TO PATIENTS WHO ARE [...] BE BASED ON THE PRIMARY CLINICAL RECORDS. [facility] [employer] provides no warranty or guarantee of the accuracy or completeness of information in this document.
--- NOTE | 2023-08-08 06:48 | ED.CHESTPAI1 ---
HPI - Chest Pain General Chief Complaint: Anxiety Stated Complaint: OTHER Time Seen by Provider: 08/08/23 06:44 Source: patient Mode of arrival: ambulance Limitations: no limitations History of Present Illness HPI narrative: 63-year-old female presents for chest pain and pressure. She is also nauseous. She states she has a pacemaker and it has to be redone and she is having that redone in 2 days. She states the lead came off. No fever or productive cough. Related Data Home Medications ?Medication ?Instructions ?Recorded ?Confirmed alprazolam 1 mg tablet 1 mg PO BID 06/10/23 08/08/23 aspirin 81 mg tablet,delayed 81 mg PO DAILY 06/10/23 08/08/23 release atorvastatin 80 mg tablet 80 mg PO DAILY 06/10/23 08/08/23 buspirone 10 mg tablet 10 mg PO BID 06/10/23 08/08/23 carvedilol 6.25 mg tablet 6.25 mg PO BID 06/10/23 08/08/23 clopidogrel 75 mg tablet 75 mg PO DAILY 06/10/23 08/08/23 dapagliflozin propanediol 10 mg 10 mg PO DAILY 06/10/23 08/08/23 tablet (Farxiga) gabapentin 300 mg capsule 300 mg PO TID 06/10/23 08/08/23 trazodone 50 mg tablet 50 mg PO DAILY 06/10/23 08/08/23 albuterol sulfate 90 mcg/actuation 2 puff inhalation Q6H PRN 06/29/23 08/08/23 aerosol inhaler shortness of breath or wheezing pantoprazole 40 mg tablet,delayed 40 mg PO DAILY 06/29/23 08/08/23 release furosemide 40 mg tablet 40 mg PO QAM 07/23/23 08/08/23 spironolactone 25 mg tablet 25 mg PO QAM 07/23/23 08/08/23 cefdinir 300 mg capsule 300 mg PO BID 07/29/23 08/08/23 cyclobenzaprine 10 mg tablet 10 mg PO Q12H PRN muscle spasm 07/29/23 08/08/23 Previous Rx's ?Medication ?Instructions ?Recorded levothyroxine 75 mcg tablet 75 mcg PO ACB #30 tabs 06/11/23 prednisone 10 mg tablet 30 mg (3 x 10 mg) PO DAILY #20 tabs 07/25/23 Allergies Allergy/AdvReac Type Severity Reaction Status Date / Time No Known Drug Allergies Allergy Verified 08/08/23 06:16 Review of Systems ROS Narrative A ten point review of systems is negative except as noted above. [facility] Medical History (Updated 08/08/23 @ 06:48 by Jared Casiano MD) Acute kidney injury ?N17.9 - Acute kidney failure, unspecified (ICD-10) Acute anxiety ?F41.9 - Anxiety disorder, unspecified (ICD-10) Coronary artery disease ?I25.10 - Atherosclerotic heart disease of [place] coronary artery without angina pectoris (ICD-10) Pacemaker ?Z95.0 - Presence of cardiac pacemaker (ICD-10) Iron deficiency anemia ?D50.9 - Iron deficiency anemia, unspecified (ICD-10) COPD (chronic obstructive pulmonary disease) ?J44.9 - Chronic obstructive pulmonary disease, unspecified (ICD-10) Hypoxia ?R09.02 - Hypoxemia (ICD-10) Elevated troponin ?R79.89 - Other specified abnormal findings of blood chemistry (ICD-10) Dyspnea ?R06.00 - Dyspnea, unspecified (ICD-10) Elevated brain natriuretic peptide (BNP) level ?R79.89 - Other specified abnormal findings of blood chemistry (ICD-10) Hypertension ?I10 - Essential (primary) hypertension (ICD-10) Elevated troponin ?R79.89 - Other specified abnormal findings of blood chemistry (ICD-10) Acute dyspnea ?R06.00 - Dyspnea, unspecified (ICD-10) IBS (irritable bowel syndrome) ?K58.9 - Irritable bowel syndrome without diarrhea (ICD-10) Anxiety ?F41.9 - Anxiety disorder, unspecified (ICD-10) Heart attack ?I21.9 - Acute myocardial infarction, unspecified (ICD-10) Sciatic leg pain ?M54.30 - Sciatica, unspecified side (ICD-10) Herniated disc, cervical ?M50.20 - Other cervical disc displacement, unspecified cervical region (ICD-10) Surgical History History of appendectomy ?Z90.49 - Acquired absence of other specified parts of digestive tract (ICD-10) History of heart artery stent ?Z95.5 - Presence of coronary angioplasty implant and graft (ICD-10) Family History (Updated 07/29/23 @ 19:32 by Consuelo Dejesus RN) Mother Family history of CHF (congestive heart failure) Family history of hypertension Father Family history of CHF (congestive heart failure) Brother Family history of CHF (congestive heart failure) Other Family history of diabetes mellitus Family history of myocardial infarction Social History (Updated 07/29/23 @ 19:35 by Consuelo Dejesus RN) Within the past year, how often did you have a drink containing alcohol: monthly or less Smoking status: Current every day smoker Nicotine containing products detail: 1 pack/week Non-prescribed substance use: cannabis (any form) Non-prescribed substance use details: smokes marijuana, gummies Highest level of school completed/degree received: high school graduate Are you now , , , , never or living with a partner: In a typical week, how many times do you talk on the telephone with family, friends, or neighbors: once per week How often do you get together with friends or relatives: never How often do you attend roman catholic or holiness services: 4 or more times per year Do you belong to any clubs or organizations such as roman catholic groups unions, ffk environment or athletic groups, or school groups: no Total score: 1 Score interpretation: A score of less than or equal to 1 indicates the most socially isolated. Little interest or pleasure in doing things: several days Feeling down, depressed, or hopeless: several days Feel stressed/tense/nervous/anxious/difficulty sleeping: very much Life stressors: recent of family or friend Life stressor details: 2020 lost family Do you think of yourself as: straight/heterosexual Gender Identity: female Exam Narrative Exam Narrative: Nurses note and vital signs reviewed and patient is not hypoxic. General: The patient is in no acute distress. She has a cold wash rag across her head. Skin: Warm, dry, no pallor noted. There is no rash noted. Head: Normocephalic, atraumatic Eye: Normal conjunctiva, no drainage Ears, Nose, Mouth, and Throat: oral mucosa is moist. Nares patent. Cardiovascular: Regular Rate and Rhythm Respiratory: Patient is in no distress, no accessory muscle use, lungs are clear to auscultation, no wheezing, rales or rhonchi Back: non-tender GI: Soft and nontender Musculoskeletal: The patient has no evidence of calf tenderness, no pitting edema, symmetrical pulses noted bilaterally Neurological: A&O, normal speech Psychiatric: Cooperative Constitutional Vital Signs, click to edit/add: Last Vital Signs Temp 98.3 F 08/08/23 06:13 Pulse 92 H 08/08/23 06:13 Resp 18 08/08/23 06:13 BP 170/100 H 08/08/23 06:13 Pulse Ox 98 08/08/23 06:13 O2 Del Method Room Air 08/08/23 06:13 Course Vital Signs Vital signs: Vital Signs Temperature 98.3 F 08/08/23 06:13 Pulse Rate 92 H 08/08/23 06:13 Respiratory Rate 18 08/08/23 06:13 Blood Pressure 170/100 H 08/08/23 06:13 Pulse Oximetry 98 08/08/23 06:13 Oxygen Delivery Method Room Air 08/08/23 06:13 Temperature 98.3 F 08/08/23 06:13 Pulse Rate 92 H 08/08/23 06:13 Respiratory Rate 18 08/08/23 06:13 Blood Pressure 170/100 H 08/08/23 06:13 Pulse Oximetry 98 08/08/23 06:13 Oxygen Delivery Method Room Air 08/08/23 06:13 MDM - Chest Pain MDM Narrative Medical decision making narrative: Tests are ordered and the patient is signed out to Dr. Barnes. Differential Diagnosis Differential diagnosis: Likely pneumothorax, stable angina, unstable angina pectoris, atypical chest pain, st elevation myocardial infarction, costochondritis and chest pain ECG Data Attestation: I personally reviewed and interpreted this ECG as follows: (EKG on my interpretation shows no acute changes) Discharge Plan Discharge Patient Disposition: Still a Patient
[2023-08-08 07:33] LABS: Anion Gap 15.2; BUN Creatinine Ratio 23.9; Calcium 8.8 mg/dL (8.5-10.1); Carbon Dioxide 26.3 mmol/L (21.0-32.0); Chloride 99 mmol/L (98-107); Estimated GFR (African America >60 (>=60); Estimated GFR (Non-African Ame >60 (>=60); Glucose 221 mg/dL (74-106); Potassium 4.5 mmol/L (3.5-5.1); Sodium 136 mmol/L (136-145)
--- NOTE | 2023-08-08 07:33 | XR_ITS ---
The [address] [address] Patient Name: EMERY JETT MRN: [id number] date: 1960 Sex: F Assigned Patient Location: ED.MAIN Current Patient Location: ER Accession/Order Number: [id number] Exam Date: 08/08/2023 07:28 Report Date: 08/08/2023 07:41 At the request of: FUENTES SANTANA Procedure: XR chest 1V EXAM: XR chest 1V HISTORY: . Chest pain . COMPARISON: 07/27/2023 Findings: Heart is normal in size. Pacer is noted. Vascularity is unremarkable. There is hyperexpansion of lungs. Lungs are free of focal infiltrates. EKG leads overlie the chest. XR/XR chest 1V Impression: No acute heart or lung disease identified. Electronically authenticated by: CHANTEL LADD Date: 08/08/2023 07:41
[2023-08-08 07:34] LABS: Basophils Absolute Auto 0.1 10^3/uL (0.0-0.1); Basophils Percent Auto 0.3 % (0.2-2.0); Eosinophils Absolute Auto 0.3 10^3/uL (0.0-0.7); Eosinophils Percent Auto 1.4 % (0.9-7.0); Hematocrit 40.7 % (36.0-48.0); Hemoglobin 12.6 g/dL (12.0-16.0); Immature Granulocytes Abs Auto 0.11 10^3/uL (0.00-0.03); Immature Granulocytes Pct Auto 0.5 % (0.0-0.5); Lymphocytes Absolute Auto 2.7 10^3/uL (1.2-3.8); Lymphocytes Percent Auto 12.5 % (20.5-60.0); Mean Corpuscular Hemoglobin 27.5 pg (26.7-34.0); Mean Corpuscular Volume 88.7 fL (81.0-99.0); Mean Platelet Volume 9.8 fL (9.5-13.5); Monocytes Absolute Auto 1.2 10^3/uL (0.3-0.8); Monocytes Percent Auto 5.6 % (1.7-12.0); Neutrophils Absolute Auto 17.4 10^3/uL (1.4-6.5); Neutrophils Percent Auto 79.7 % (43.0-75.0); Platelet Count 240 10^3/uL (150-450); Red Blood Count 4.59 10^6/uL (4.20-5.40); Red Cell Distribution Width 16.2 % (11.0-15.0); White Blood Count 21.8 10^3/uL (4.0-11.0)
[2023-08-08] MEDS: BUSPIRONE HCL 10 MG TABLET PO (07:35)
[2023-08-08] MEDS: CARVEDILOL 3.125 MG TABLET 6.25 MG PO (07:35)
[2023-08-08] MEDS: ALPRAZOLAM 0.5 MG TABLET PO (07:35)
--- NOTE | 2023-08-08 09:08 | PC.NURSE ---
Asked patient how she was going to go home and she stated she has no money and no one can come get her. She said that usually the hospital takes care of it.
--- NOTE | 2023-08-08 09:25 | ED.ANXIETY1 ---
HPI - Anxiety General Chief Complaint: Anxiety Stated Complaint: OTHER Time Seen by Provider: 08/08/23 06:44 Source: patient Mode of arrival: ambulance Limitations: no limitations History of Present Illness HPI narrative: Please see previous note from Dr. Farnsworth and an addendum by myself. I was unable to discharge the patient with his open note so am hoping this note only for discharge purposes. Related Data Home Medications ?Medication ?Instructions ?Recorded ?Confirmed alprazolam 1 mg tablet 1 mg PO BID 06/10/23 08/08/23 aspirin 81 mg tablet,delayed 81 mg PO DAILY 06/10/23 08/08/23 release atorvastatin 80 mg tablet 80 mg PO DAILY 06/10/23 08/08/23 buspirone 10 mg tablet 10 mg PO BID 06/10/23 08/08/23 carvedilol 6.25 mg tablet 6.25 mg PO BID 06/10/23 08/08/23 clopidogrel 75 mg tablet 75 mg PO DAILY 06/10/23 08/08/23 dapagliflozin propanediol 10 mg 10 mg PO DAILY 06/10/23 08/08/23 tablet (Farxiga) gabapentin 300 mg capsule 300 mg PO TID 06/10/23 08/08/23 trazodone 50 mg tablet 50 mg PO DAILY 06/10/23 08/08/23 albuterol sulfate 90 mcg/actuation 2 puff inhalation Q6H PRN 06/29/23 08/08/23 aerosol inhaler shortness of breath or wheezing pantoprazole 40 mg tablet,delayed 40 mg PO DAILY 06/29/23 08/08/23 release furosemide 40 mg tablet 40 mg PO QAM 07/23/23 08/08/23 spironolactone 25 mg tablet 25 mg PO QAM 07/23/23 08/08/23 cefdinir 300 mg capsule 300 mg PO BID 07/29/23 08/08/23 cyclobenzaprine 10 mg tablet 10 mg PO Q12H PRN muscle spasm 07/29/23 08/08/23 Previous Rx's ?Medication ?Instructions ?Recorded levothyroxine 75 mcg tablet 75 mcg PO ACB #30 tabs 06/11/23 prednisone 10 mg tablet 30 mg (3 x 10 mg) PO DAILY #20 tabs 07/25/23 Allergies Allergy/AdvReac Type Severity Reaction Status Date / Time No Known Drug Allergies Allergy Verified 08/08/23 06:16 [facility] Medical History (Updated 08/08/23 @ 06:48 by Jared Casiano MD) Acute kidney injury ?N17.9 - Acute kidney failure, unspecified (ICD-10) Acute anxiety ?F41.9 - Anxiety disorder, unspecified (ICD-10) Coronary artery disease ?I25.10 - Atherosclerotic heart disease of [place] coronary artery without angina pectoris (ICD-10) Pacemaker ?Z95.0 - Presence of cardiac pacemaker (ICD-10) Iron deficiency anemia ?D50.9 - Iron deficiency anemia, unspecified (ICD-10) COPD (chronic obstructive pulmonary disease) ?J44.9 - Chronic obstructive pulmonary disease, unspecified (ICD-10) Hypoxia ?R09.02 - Hypoxemia (ICD-10) Elevated troponin ?R79.89 - Other specified abnormal findings of blood chemistry (ICD-10) Dyspnea ?R06.00 - Dyspnea, unspecified (ICD-10) Elevated brain natriuretic peptide (BNP) level ?R79.89 - Other specified abnormal findings of blood chemistry (ICD-10) Hypertension ?I10 - Essential (primary) hypertension (ICD-10) Elevated troponin ?R79.89 - Other specified abnormal findings of blood chemistry (ICD-10) Acute dyspnea ?R06.00 - Dyspnea, unspecified (ICD-10) IBS (irritable bowel syndrome) ?K58.9 - Irritable bowel syndrome without diarrhea (ICD-10) Anxiety ?F41.9 - Anxiety disorder, unspecified (ICD-10) Heart attack ?I21.9 - Acute myocardial infarction, unspecified (ICD-10) Sciatic leg pain ?M54.30 - Sciatica, unspecified side (ICD-10) Herniated disc, cervical ?M50.20 - Other cervical disc displacement, unspecified cervical region (ICD-10) Surgical History History of appendectomy ?Z90.49 - Acquired absence of other specified parts of digestive tract (ICD-10) History of heart artery stent ?Z95.5 - Presence of coronary angioplasty implant and graft (ICD-10) Family History (Updated 07/29/23 @ 19:32 by Consuelo Dejesus RN) Mother Family history of CHF (congestive heart failure) Family history of hypertension Father Family history of CHF (congestive heart failure) Brother Family history of CHF (congestive heart failure) Other Family history of diabetes mellitus Family history of myocardial infarction Social History (Updated 07/29/23 @ 19:35 by Consuelo Dejesus RN) Within the past year, how often did you have a drink containing alcohol: monthly or less Smoking status: Current every day smoker Nicotine containing products detail: 1 pack/week Non-prescribed substance use: cannabis (any form) Non-prescribed substance use details: smokes marijuana, gummies Highest level of school completed/degree received: high school graduate Are you now , , , , never or living with a partner: In a typical week, how many times do you talk on the telephone with family, friends, or neighbors: once per week How often do you get together with friends or relatives: never How often do you attend voodoo or gnosticist services: 4 or more times per year Do you belong to any clubs or organizations such as voodoo groups unions, fraWardrobe Housekeeper or athletic groups, or school groups: no Total score: 1 Score interpretation: A score of less than or equal to 1 indicates the most socially isolated. Little interest or pleasure in doing things: several days Feeling down, depressed, or hopeless: several days Feel stressed/tense/nervous/anxious/difficulty sleeping: very much Life stressors: recent of family or friend Life stressor details: 2020 lost family Do you think of yourself as: straight/heterosexual Gender Identity: female Exam Constitutional Vital Signs, click to edit/add: Last Vital Signs Temp 98.3 F 08/08/23 06:13 Pulse 89 08/08/23 08:59 Resp 18 08/08/23 07:39 BP 125/94 H 08/08/23 08:18 Pulse Ox 98 08/08/23 07:39 O2 Del Method Room Air 08/08/23 06:13 Course Vital Signs Vital signs: Vital Signs Temperature 98.3 F 08/08/23 06:13 Pulse Rate 92 H 08/08/23 06:13 Respiratory Rate 18 08/08/23 06:13 Blood Pressure 170/100 H 08/08/23 06:13 Pulse Oximetry 98 08/08/23 06:13 Oxygen Delivery Method Room Air 08/08/23 06:13 Temperature 98.3 F 08/08/23 06:13 Pulse Rate 89 08/08/23 08:59 Respiratory Rate 18 08/08/23 07:39 Blood Pressure 125/94 H 08/08/23 08:18 Pulse Oximetry 98 08/08/23 07:39 Oxygen Delivery Method Room Air 08/08/23 06:13 MDM - Anxiety Lab Data Labs: Lab Results 08/08/23 Range/Units 07:02 WBC 21.8 H (4.0-11.0) 10^3/uL RBC 4.59 (4.20-5.40) 10^6/uL Hgb 12.6 (12.0-16.0) g/dL Hct 40.7 (36.0-48.0) % MCV 88.7 (81.0-99.0) fL MCH 27.5 (26.7-34.0) pg MCHC 31.0 (29.9-35.2) g/dL RDW 16.2 H (11.0-15.0) % Plt Count 240 (150-450) 10^3/uL MPV 9.8 (9.5-13.5) fL Neut % (Auto) 79.7 H (43.0-75.0) % Lymph % (Auto) 12.5 L (20.5-60.0) % Kimball % (Auto) 5.6 (1.7-12.0) % Eos % (Auto) 1.4 (0.9-7.0) % Baso % (Auto) 0.3 (0.2-2.0) % Neut # (Auto) 17.4 H (1.4-6.5) 10^3/uL Lymph # (Auto) 2.7 (1.2-3.8) 10^3/uL Kimball # (Auto) 1.2 H (0.3-0.8) 10^3/uL Eos # (Auto) 0.3 (0.0-0.7) 10^3/uL Baso # (Auto) 0.1 (0.0-0.1) 10^3/uL Abs Immat Gran (auto) 0.11 H (0.00-0.03) 10^3/uL Imm/Tot Granulo (auto) 0.5 (0.0-0.5) % Sodium 136 (136-145) mmol/L Potassium 4.5 (3.5-5.1) mmol/L Chloride 99 (98-107) mmol/L Carbon Dioxide 26.3 (21.0-32.0) mmol/L Anion Gap 15.2 BUN 22.0 H (7.0-18.0) mg/dL Creatinine 0.92 (0.55-1.02) mg/dL Est GFR ( Amer) >60 (>=60) Est GFR (Non-Af Amer) >60 (>=60) BUN/Creatinine Ratio 23.9 Glucose 221 H (74-106) mg/dL Calcium 8.8 (8.5-10.1) mg/dL Troponin I High Sens 129.0 H* (4.0-51.3) pg/mL Discharge Plan Discharge Stand Alone Forms: Portal Instructions Chief Complaint: Anxiety Clinical Impression: Chest pain Patient Disposition: Home, Self-Care Time of Disposition Decision: 09:26 Prescriptions / Home Meds: No Action pantoprazole 40 mg tablet,delayed release (DR/EC) 40 mg PO DAILY Patient Comments: pt is out of med albuterol sulfate 90 mcg/actuation HFA aerosol inhaler 2 puff INHALATION Q6H PRN (Reason: shortness of breath or wheezing) furosemide 40 mg tablet 40 mg PO QAM spironolactone 25 mg tablet 25 mg PO QAM prednisone 10 mg tablet 30 mg PO DAILY Qty: 20 0RF Patient Comments: pt states that she is on the 2 tabs daily for 3 days Rx Instructions: 3/day for 3 days, 2/day for 3 days, 1/day for 3 days, 1/2 /day for 4 days atorvastatin 80 mg tablet 80 mg PO DAILY carvedilol 6.25 mg tablet 6.25 mg PO BID alprazolam 1 mg tablet 1 mg PO BID clopidogrel 75 mg tablet 75 mg PO DAILY aspirin 81 mg tablet,delayed release (DR/EC) 81 mg PO DAILY buspirone 10 mg tablet 10 mg PO BID gabapentin 300 mg capsule 300 mg PO TID dapagliflozin propanediol [Farxiga] 10 mg tablet 10 mg PO DAILY trazodone 50 mg tablet 50 mg PO DAILY levothyroxine 75 mcg Tablet 75 mcg PO ACB Qty: 30 11RF cyclobenzaprine 10 mg tablet 10 mg PO Q12H PRN (Reason: muscle spasm) cefdinir 300 mg capsule 300 mg PO BID Print Language: Croatian Additional Instructions: See 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
== END 2023-08-08 09:30 | disposition home or self-care (01) ==
PROVIDERS: Emergency Medicine; Emergency Provider Emergency Medicine Emergency Medical Services; PCP Family Medicine
DX: R07.9 Chest pain, unspecified (principal); F41.9 Anxiety disorder, unspecified; I25.10 Atherosclerotic heart disease of native coronary artery without angina pectoris; J44.9 Chronic obstructive pulmonary disease, unspecified; I10 Essential (primary) hypertension; K58.9 Irritable bowel syndrome, unspecified; I25.2 Old myocardial infarction; Z90.49 Acquired absence of other specified parts of digestive tract; Z95.5 Presence of coronary angioplasty implant and graft; F17.210 Nicotine dependence, cigarettes, uncomplicated; F12.90 Cannabis use, unspecified, uncomplicated; Z95.0 Presence of cardiac pacemaker; Z79.82 Long term (current) use of aspirin; Z79.899 Other long term (current) drug therapy
CPT/HCPCS: 36415; 71045; 80048; 84484; 85025; 93005; 99285

== ENCOUNTER 2023-08-20 21:37 | Inpatient (IN) | payer OTHER, SELFPAY ==
[2023-08-20] VITALS (18 sets, daily range): BP systolic 166–212; BP diastolic 86–121; PULSE 78–100; TEMP 37.6; O2SAT 91–98; BMI 23.5
--- OUTSIDE RECORDS SUMMARY | 2023-08-20 21:48 | XMS_ITS | CCD ---
Author Organization [facility] Care Team Providers Care Management Professionals Name Role Phone KEISHA DORADO JR Attending Unavailable PATRICIA CORDERO Primary Care Unavailable TAMIE FAJARDO Attending Unavailable UMAIR MANDUJANO Admitting Unavailable GASPER AVENDANO Referring Unavailable ЕКАТЕРИНА ROBERT Primary Care Unavailable Екатерина Robert Primary Care Physician JAKOB Dunn, DR WILLASM Consulting Unavailable JOSELINEY ., DR WILLAMS Attending Unavailable HOY ., DR WILLAMS Admitting Unavailable JAKOB ., DR WILLAMS Primary Care Unavailable HREMELINDA, DR KIRK Viera Consulting Unavailable MATTEO NGO Consulting Unavailable LINDA MARRERO Consulting Unavailable BRENNA DEE Consulting Unavailable JAKOB ., DR WILLAMS Consulting Unavailable JOSELINEY ., DR WILLAMS Attending Unavailable JOSELINEY ., DR WILLAMS Admitting Unavailable JAKOB Dunn, DR WILLAMS Primary Care Unavailable WINIFRED, DR EDGE Consulting Unavailable MATTEO [employer] Consulting Unavailable LINDA MARRERO Consulting Unavailable BETINA ALVAREZ Consulting Unavailable DR ЕКАТЕРИНА CHARLES Consulting Unavailable DR ЕКАТЕРИНА CHARLES Primary Care Unavailable IDRIS STORY Attending Unavailable IDRIS STORY Admitting Unavailable PRESTON SHELDON Consulting Unavailable DR ЕКАТЕРИНА CHARLES Consulting Unavailable JAKOB Dunn, DR WILLAMS Primary Care Unavailable JAKOB ., DR WILLAMS Attending Unavailable HOY ., DR WILLAMS Admitting Unavailable HOY ., DR WILLAMS Consulting Unavailable HOY ., DR WILLAMS Attending Unavailable JAKOB ., DR WILLAMS Admleighann Unavailable JAKOB ., DR WILLAMS Primary Care Unavailable ARELI, DR CHANTEL Valenzuela Consulting Unavailable DR CORA DEL REAL Consulting Unavailable JAKOB ., DR WILLAMS Consulting [...] Primary Care Unavailable MATTEO NGO Consulting Unavailable AHGRACIE STEWART Consulting Unavailable BACHRABENNY REESE Consulting Unavailable Arsenio Martin Attending Unavailable Arsenio Martin Attending Unavailable BullMagdalena salinas Admitting Unavailable BullMagdalena salinas Attending Unavailable Екатерина Robert M Primary Care Unavailable SUKINIBARRETT Referring Unavailab le GANGWANI, BARRETT LARSON Referring Unavailab le MERZA, NOORALDIN Referring Unavailable MERZA, NOORALDIN Referring Unavailable ZENZ, ROSALBA Referring Unavailable MERLE, LOREE Referring Unavailable SAMMIVINAY Referring Unavailable MERLE, LOREE Referring Unavailable DELBERT, UMAIR Referring Unavailable DELBERT, UMAIR Referring Unavailable MARKER, SOCORRO J Referring Unavailable SCOTTY, HANI Admitting Unavailable CHADD ALCANTAR Attending Unavailable ARSENIO MARTIN Referring Unavailable DELBERT, UMAIR Admitting Unavailable BARRETT HAIDER Consulting Unavailab le HORANI, DANUTA Attending Unavailable SAMMI, VINAY Referring Unavailable DELBERT, UMAIR Attending Unavailable DELBERT, UMAIR Admitting Unavailable MERLE, LOREE Referring Unavailable Allergies Allergy Classification Reported Allergen(s) Allergy Type Date of Onset Reaction(s) Facility (1 source) bee venom Drug allergy (disorder) 1 [facility] Repository (1 source) house dust allergenic extract; 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: [HOUSE DUST] Drug Allergy 4 [facility] Repository (1 source) BEE VENOM PROTEIN (HONEY BEE); 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: [BEE VENOM PROTEIN (HONEY BEE)] Propensity to adverse reactions to drug (disorder) 4 [facility] Repository (1 source) HAY FEVER AND ALLERGY RELIEF; 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: [HAY FEVER AND ALLERGY RELIEF] Propensity to adverse reactions to drug (disorder) 4 [facility] Repository Medications Current Medications Medication Drug [...] oral solution (2 sources) alpha-Adrenergic Agonist, Uncompetitive I-lhwyus-T-aspart ate Receptor Antagonist, Sigma-1 Agonist Start: 08-10-19 take 5 mL by mouth four times daily Bromfed DM oral syrup 5 mL, Oral, QID for cold symptoms, 200 mL, Refill(s) 0, [facility], 170.2, cm, 08/09/22 13:13:00 EDT, [...] day(s), # 14 tab(s), Refills(s) 0, Pharmacy: [facility] 1155, 170.2, cm, 08/09/22 13:13:00 EDT, [...] day(s), # 15 tab(s), Refills(s) 0, Pharmacy: [facility] 1155, 170.2, cm, 08/09/22 13:13:00 EDT, [...] disease with (acute) exacerbation] Onset: 2 Chronic Complication of device; implant or graft (2 sources) Breakdown (mechanical) of cardiac electrode, initial encounter; 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: [Breakdown (mechanical) of cardiac electrode, initial encounter] Onset: 4 Episodic Conduction disorders (6 sources) Encounter for adjustment and management of automatic implantable cardiac defibrillator; 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: [Presence of cardiac pacemaker] Onset: 4 Chronic Congestive heart failure; nonhypertensive (8 sources) Chronic combined systolic (congestive) and diastolic (congestive) heart failure; 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: [Unspecified diastolic (congestive) heart failure] Onset: 2 Chronic Coronary atherosclerosis and other heart disease (6 sources) Atherosclerotic heart disease of [place] coronary artery without angina pectoris; 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: [Old [...] 2 Chronic Other aftercare (1 source) 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; 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: [OTH HALFWAY CURRENT DRUG THERAPY] Onset: 3 Episodic Other aftercare (1 source) [facility] (current) use of aspirin; 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 Barriers to Discharge: Patient is medically ready for discharge at this time. AVS has been completed. Patient will discharge to home. No further OTM needs at this time. [facility] will continue to follow patient through the discharge process and assist with any discharge related needs. Diet: Dietary Orders (From admission, onward) Start Ordered 08/10/23 1138 Regular Diet Heart Healthy/HTN, CABG,Stroke, (2gNA, low fat, low cholesterol) Diet effective now Question Answer Comment Room Service? Yes Fat restriction: Heart Healthy/HTN, CABG,Stroke, (2gNA, low fat, low cholesterol) 08/10/23 1138 Physician Expected Discharge Date: 08/11/2023 Discharge Delays: PT Six Click Score: 24 OT Six Click Score: PT Recommendations: OT Recommendations: Does patient understand post acute plan of care? Yes Is expected discharge disposition appropriate for patient?: Yes New Consults: Normal [facility] 30 The patient is Moderately Stable - Low risk of patient condition declining or worsening The patient's goals for the shift include discharge The clinical goals for the shift include discharge Over the shift, the patient did make progress toward the following goals. Barriers to progression include n/a. Recommendations to address these barriers include n/a. Pt to be discharged Problem: Pain - Adult Goal: Verbalizes/displays adequate comfort level or baseline comfort level Outcome: Progressing Problem: Safety - Adult Goal: Free from fall injury Outcome: Progressing Problem: Discharge Planning Goal: Discharge to home or other facility with appropriate resources Outcome: Progressing Problem: Chronic Conditions and Co-morbidities Goal: Patient's chronic conditions and co-morbidity symptoms are monitored and maintained or improved Outcome: Progressing Normal [facility] BASIC METABOLIC PANELon 03-3 Anion gap [Moles/Vol] 13 mmol/L Normal 7-20 [facility] Comment on above: Performed By: #### L [id number] ####[facility] (BEAKER)[address] [place] [address] Calcium [Mass/Vol] 9.0 mg/dL Normal 8.6-10.3 [facility] Comment on above: Performed By: #### L [id number] ####[facility] (BEAKER)[address] [place] [address] Chloride [Moles/Vol] 97 mmol/L Low 98-107 [facility] Comment on above: Performed By: #### L [id number] ####[facility] ([facility])[address] [place] [address] CO2 [Moles/Vol] 29 mmol/L Normal 21-31 [facility] Comment on above: Performed By: #### L [id number] ####[facility] ([facility])[address] [place] [address] Creatinine [Mass/Vol] 1.06 mg/dL Normal 0.60-1.20 [facility] Comment on above: Performed By: #### L [id number] ####[facility] ([facility])[address] [place] [address] GLOMERULAR FILTRATION RATE ML/MIN/1.73 SQ M.PREDICTED 59.4 mL/min/1.73m*2 Low >60.0 [facility] Comment on above: Result Comment: [facility]???s estimated glomerular filtration rate (eGFR) will [...] of individuals. Performed By: #### L [id number] ####[facility] ([facility])[address] [place] [address] Glucose [Mass/Vol] 178 mg/dL High 70-100 [facility] Comment on above: Performed By: #### L [id number] ####[facility] ([facility])[address] [place] [address] Potassium [Moles/Vol] 4.3 mmol/L Normal 3.5-5.1 [facility] Comment on above: Performed By: #### L [id number] ####[facility] ([facility])[address] [place] [address] Sodium [Moles/Vol] 135 mmol/L Low 136-145 [facility] Comment on above: Performed By: #### L [id number] ####[facility] ([facility])[address] [place] [address] Urea nitrogen [Mass/Vol] 20 mg/dL Normal 7-25 [facility] Comment on above: Performed By: #### L [id number] ####[facility] ([facility])[address] [place] [address] UREA NITROGEN/CREATININE (MASS RATIO) IN SER/PLAS 18.9 Normal [facility] Comment on above: Performed By: #### L [id number] ####[facility] ([facility])[address] [place] [address] CBCon 08-11-2023 Erythrocyte distribution width (RBC) [Ratio] 17.0 % High 11.5-15.0 [facility] Comment on above: Performed By: #### L [id number] #### [facility] ([facility]) [address] [place] [address] ERYTHROCYTE MEAN CORPUSCULAR HEMOGLOBIN CONCENTRATION (G/DL) BY AUTOMATED 31.6 g/dL Low 32.0-35.0 [facility] Comment on above: Performed By: #### L [id number] #### [facility] ([facility]) [address] [place] [address] Hematocrit (Bld) [Volume fraction] 40.8 % Normal 36.0-48.0 [facility] Comment on above: Performed By: #### L [id number] #### [facility] ([facility]) [address] [place] [address] Hemoglobin (Bld) [Mass/Vol] 12.9 g/dL Normal 12.0-15.0 [facility] Comment on above: Performed By: #### L [id number] #### [facility] ([facility]) [address] [place] [address] MCH (RBC) [Entitic mass] 28.0 pg Normal 27.0-33.0 [facility] Comment on above: Performed By: #### L [id number] #### [facility] ([facility]) [address] [place] [address] MCV (RBC) [Entitic vol] 88.5 fL Normal 82.0-98.0 [facility] Comment on above: Performed By: #### L [id number] #### [facility] [address] [place] [address] PLATELETS (10*3/UL) IN BLOOD AUTOMATED COUNT 239 10*3/uL Normal 150-400 [facility] Comment on above: Performed By: #### L [id number] #### [facility] ([facility]) [address] [place] [address] RBC (Bld) [#/Vol] 4.61 10*6/uL Normal 3.80-5.00 [facility] Comment on above: Performed By: #### L [id number] #### [facility] ([facility]) [address] [place] [address] WBC (Bld) [#/Vol] 7.21 10*3/uL Normal 4.00-10.60 [facility] Comment on above: Performed By: #### L [id number] #### [facility] ([facility]) [address] [place] [address] NURSNOTEon 08-11-2023 NURSNOTE Pt discharged via wheelchair without incident [facility] NURSNOTE AVS reviewed with patient, pt verifies understanding [facility] 30on 08-10-2023 30 The patient is Moderately Stable - Low risk of patient condition declining or worsening The patient's goals for the shift include The clinical goals for the shift include Over the shift, the patient did make progress toward the following goals. Barriers to progression include n/a. Recommendations to address these barriers include n/a. Pt admitted after pacemaker lead revision to monitor overnight Problem: Pain - Adult Goal: Verbalizes/displays adequate comfort level or baseline comfort level Outcome: Progressing Problem: Safety - Adult Goal: Free from fall injury Outcome: Progressing Problem: Discharge Planning Goal: Discharge to home or other facility with appropriate resources Outcome: Progressing Problem: Chronic Conditions and Co-morbidities Goal: Patient's chronic conditions and co-morbidity symptoms are monitored and maintained or improved Outcome: Progressing Normal [facility] HPon 08-10-2023 HP History Of Present Illness Vivian Vann is a 63 y.o. female presenting with Pacemaker lead dislodgement. Past Medical History She has no past [...] history on file for alcohol use. Allergies Bee venom protein (honey bee), Hay fever and allergy relief, and House dust Medications Medications Prior to Admission Medication Sig Dispense Refill Last Dose albuterol 90 mcg/actuation inhaler Inhale 2 puffs every 6 (six) hours if needed for wheezing. 08/10/2023 ALPRAZolam (Xanax) 1 mg tablet Take 1 mg by mouth Twice daily at 6am and 6pm. 08/09/2023 aspirin 81 mg EC tablet Take 81 mg by mouth in the morning. 08/09/2023 atorvastatin (Lipitor) 80 mg tablet Take 80 mg by mouth in the morning. 08/09/2023 busPIRone (Buspar) 10 mg tablet Take 10 mg by mouth in the morning and at bedtime. 08/09/2023 clopidogrel (Plavix) 75 mg tablet Take 75 mg by mouth in the morning. 08/09/2023 cyclobenzaprine (Flexeril) 10 mg tablet Take 10 mg by mouth if needed in the morning and at bedtime for muscle spasms. 08/09/2023 dapagliflozin propanediol (Farxiga) 10 mg Take 10 mg by mouth in the morning. 08/09/2023 furosemide (Lasix) 40 mg tablet Take 1 tablet (40 mg) by mouth in the morning. 30 tablet 0 Past Month gabapentin (Neurontin) 300 mg capsule Take 300 mg by mouth in the morning, at noon, and at bedtime. 08/09/2023 levothyroxine (Tirosint) 75 mcg capsule Take 75 mcg by mouth in the morning. 08/09/2023 pantoprazole (ProtoNix) 40 mg EC tablet Take 40 mg by mouth before breakfast. Do not crush, chew, or split. 08/09/2023 spironolactone (Aldactone) 25 mg tablet Take 1 tablet (25 mg) by mouth in the morning for 30 doses. 30 tablet 0 08/09/2023 traZODone (Desyrel) 50 mg tablet Take 50 mg by mouth at bedtime. 08/09/2023 Review of Systems Physical Exam Last Recorded Vitals Blood pressure 170/90, pulse 80, resp. rate 17, SpO2 99 %. Relevant Results none Assessment/Plan Principal Problem: Pacemaker lead failure Active Problems: Failure of pacemaker lead, initial encounter Reposition lead Loree Chacne MD [facility] NURSNOTEon 08-10-2023 NURSNOTE CHG wipes and betadine nasal swabs completed. [facility] 07-13-2023 36 Pts phone line is no t working [facility] 07-12-2023 36 Unable to reach pt o r leave message, phone line not in service [facility] 36 Patients phone is no t in working order. Tried calling pts ER contact but it is a food pantry and was only a VM option. Did not leave message. [facility] 07-11-2023 30 The patient is Moderately Stable - Low risk of patient condition declining or worsening The patient's goals for the shift include pain control The clinical goals for the shift include maintain pacemaker precautions Over the shift, the patient did not make progress toward the following goals. Barriers to progression include na. Recommendations to address these barriers include na. [facility] 30 The patient is Moderately Stable [...] safe level of function Outcome: Progressing Normal [facility] BASIC METABOLIC PANELon 06-15 Anion gap [Moles/Vol] 15 mmol/L Normal 7-20 [facility] Comment on above: Performed By: #### L [id number] #### [facility] ([facility]) [address] [place] [address] Calcium [Mass/Vol] 9.4 mg/dL Normal 8.6-10.3 [facility] Comment on above: Performed By: #### L [id number] #### [facility] ([facility]AKER) [address] [place] [address] Chloride [Moles/Vol] 97 mmol/L Low 98-107 [facility] Comment on above: Performed By: #### L [id number] #### [facility] ([facility]ER) [address] [place] [address] CO2 [Moles/Vol] 27 mmol/L Normal 21-31 [facility] Comment on above: Performed By: #### L [id number] #### [facility] ([facility]ER) [address] [place] [address] Creatinine [Mass/Vol] 1.15 mg/dL Normal 0.60-1.20 [facility] Comment on above: Performed By: #### L [id number] #### [facility] ([facility] [address] [place] [address] GLOMERULAR FILTRATION RATE ML/MIN/1.73 SQ M.PREDICTED 53.9 mL/min/1.73m*2 Low >60.0 [facility] Comment on above: Result Comment: [facility]???s estimated glomerular filtration rate (eGFR) will [...] of individuals. Performed By: #### L [id number] #### [facility] ([facility]) [address] [place] [address] Glucose [Mass/Vol] 143 mg/dL High 70-100 [facility] Comment on above: Performed By: #### L [id number] #### [facility] ([facility]) [address] [place] [address] Potassium [Moles/Vol] 3.9 mmol/L Normal 3.5-5.1 [facility] Comment on above: Performed By: #### L [id number] #### [facility] ([facility]) [address] [place] [address] Sodium [Moles/Vol] 135 mmol/L Low 136-145 [facility] Comment on above: Performed By: #### L [id number] #### [facility] ([facility]) [address] [place] [address] Urea nitrogen [Mass/Vol] 32 mg/dL High 7-25 [facility] Comment on above: Performed By: #### L [id number] #### [facility] ([facility]) [address] [place] [address] UREA NITROGEN/CREATININE (MASS RATIO) IN SER/PLAS 27.8 Normal [facility] Comment on above: Performed By: #### L [id number] #### [facility] ([facility]) [address] [place] [address] CBC WITH AUTO DIFFERENTIALon 07-11-2023 Basophils (Bld) [#/Vol] 0.03 10*3/uL Normal 0.00-0.20 [facility] Comment on above: Performed By: #### L [id number] #### [facility] (BEAKER) [address] [place] [address] Basophils/100 WBC (Bld) 0.3 % Normal 0.0-1.0 [facility] Comment on above: Performed By: #### L [id number] #### [facility] ([facility]ER) [address] [place] [address] Eosinophils (Bld) [#/Vol] 0.32 10*3/uL Normal 0.00-0.50 [facility] Comment on above: Performed By: #### L [id number] #### [facility] ([facility]ER) [address] [place] [address] Eosinophils/100 WBC (Bld) 2.8 % Normal 0.0-6.0 [facility] Comment on above: Performed By: #### L [id number] #### [facility] ([facility]) [address] [place] [address] Erythrocyte distribution width (RBC) [Ratio] 15.3 % High 11.5-15.0 [facility] Comment on above: Performed By: #### L [id number] #### [facility] ([facility]) [address] [place] [address] ERYTHROCYTE MEAN CORPUSCULAR HEMOGLOBIN CONCENTRATION (G/DL) BY AUTOMATED 32.0 g/dL Normal 32.0-35.0 [facility] Comment on above: Performed By: #### L [id number] #### [facility] ([facility] [address] [place] [address] Hematocrit (Bld) [Volume fraction] 40.9 % Normal 36.0-48.0 [facility] Comment on above: Performed By: #### L [id number] #### [facility] ([facility]) [address] [place] [address] Hemoglobin (Bld) [Mass/Vol] 13.1 g/dL Normal 12.0-15.0 [facility] Comment on above: Performed By: #### L [id number] #### [facility] ([facility]ER) [address] [place] [address] Immature granulocytes (Bld) [#/Vol] 0.04 10*3/uL Normal 0.00-0.20 [facility] Comment on above: Performed By: #### L [id number] #### [facility] ([facility]ER) [address] [place] [address] Immature granulocytes/100 WBC (Bld) 0.3 % Normal 0.0-1.0 [facility] Comment on above: Performed By: #### L [id number] #### [facility] ([facility] [address] [place] [address] Lymphocytes (Bld) [#/Vol] 3.16 10*3/uL Normal 1.20-4.00 [facility] Comment on above: Performed By: #### L [id number] #### [facility] ([facility] [address] [place] [address] Lymphocytes/100 WBC (Bld) 27.4 % Normal 20.0-45.0 [facility] Comment on above: Performed By: #### L [id number] #### [facility] ([facility] [address] [place] [address] MCH (RBC) [Entitic mass] 27.9 pg Normal 27.0-33.0 [facility] Comment on above: Performed By: #### L [id number] #### [facility] ([facility] [address] [place] [address] MCV (RBC) [Entitic vol] 87.0 fL Normal 82.0-98.0 [facility] Comment on above: Performed By: #### L [id number] #### [facility] ([facility]) [address] [place] [address] Monocytes (Bld) [#/Vol] 0.85 10*3/uL Normal 0.10-1.00 [facility] Comment on above: Performed By: #### L [id number] #### [facility] ([facility]) [address] [place] [address] Monocytes/100 WBC (Bld) 7.4 % Normal 5.0-12.0 [facility] Comment on above: Performed By: #### L [id number] #### [facility] ([facility] [address] [place] [address] Neutrophils (Bld) [#/Vol] 7.12 10*3/uL Normal 1.60-7.60 [facility] Comment on above: Performed By: #### L [id number] #### [facility] ([facility]) [address] [place] [address] Neutrophils/100 WBC (Bld) 61.8 % Normal 40.0-72.0 [facility] Comment on above: Performed By: #### L [id number] #### [facility] ([facility]) [address] [place] [address] NRBC (PER 100 WBCS) BY AUTOMATED COUNT 0.0 % Normal 0 [facility] Comment on above: Performed By: #### L [id number] #### [facility] ([facility]) [address] [place] [address] PLATELETS (10*3/UL) IN BLOOD AUTOMATED COUNT 339 10*3/uL Normal 150-400 [facility] Comment on above: Performed By: #### L [id number] #### [facility] ([facility]) [address] [place] [address] RBC (Bld) [#/Vol] 4.70 10*6/uL Normal 3.80-5.00 [facility] Comment on above: Performed By: #### L [id number] #### [facility] [facility] [address] [place] [address] WBC (Bld) [#/Vol] 11.52 10*3/uL High 4.00-10.60 [facility] Comment on above: Performed By: #### L [id number] #### [facility] ([facility]) [address] [place] [address] 30on 07-10-2023 30 Problem: Pain - Adul [...] complex ne (more content not included)... Normal [facility] 30 Daily Case Managemen t Update [...] Consultation Consultation and Management 07/06/23 1050 Normal [facility] 30 The patient is Moderately Stable - Low risk of patient condition declining or worsening The patient's goals for the shift include comfort The clinical goals for the shift include pacemaker placement Problem: Pain - Adult Goal: Verbalizes/displays adequate comfort level or baseline comfort level Outcome: Progressing Flowsheets (Taken 07/09/2023 08 by Emerald Curtis, RN) Verbalizes/displays adequate comfort level or baseline [...] and behaviors that affect risk of falls [place] fall precautions as indicated by assessment Educate patient/family on patient safety, including physical limitations Instruct patient to call for assistance with activity based on assessment Modify environment to reduce risk of injury Consider OT/PT consult to assist with strengthening/mobilit y Problem: Discharge Planning Goal: Discharge to home or other facility with appropriate resources Outcome: Progressing Flowsheets (Taken 07/09/2023814 by Emerald Curtis RN) Discharge to home [...] and prevent overall improvement and discharge Normal [facility] BASIC METABOLIC PANELon - Anion gap [Moles/Vol] 13 mmol/L Normal 7-20 [facility] Comment on above: Performed By: #### L [id number] ####[facility] ([facility])[address] [place] [address] Calcium [Mass/Vol] 9.9 mg/dL Normal 8.6-10.3 [facility] Comment on above: Performed By: #### L [id number] ####[facility] ([facility])[address] [place] [address] Chloride [Moles/Vol] 97 mmol/L Low 98-107 [facility] Comment on above: Performed By: #### L [id number] ####[facility] ([facility])[address] [place] [address] CO2 [Moles/Vol] 30 mmol/L Normal 21-31 [facility] Comment on above: Performed By: #### L [id number] ####[facility] ([facility])[address] [facility] [place] [address] Creatinine [Mass/Vol] 1.06 mg/dL Normal 0.60-1.20 [facility] Comment on above: Performed By: #### L [id number] ####[facility] ([facility])[address] [place] [address] GLOMERULAR FILTRATION RATE ML/MIN/1.73 SQ M.PREDICTED 59.4 mL/min/1.73m*2 Low >60.0 [facility] Comment on above: Result Comment: [facility]???s estimated glomerular filtration rate (eGFR) will [...] of individuals. Performed By: #### L [id number] ####[facility] ([facility])[address] [place] [address] Glucose [Mass/Vol] 139 mg/dL High 70-100 [facility] Comment on above: Performed By: #### L [id number] ####[facility] ([facility])[address] [place] [address] Potassium [Moles/Vol] 3.9 mmol/L Normal 3.5-5.1 [facility] Comment on above: Performed By: #### L [id number] ####[facility] ([facility])[address] [place] [address] Sodium [Moles/Vol] 136 mmol/L Normal 136-145 [facility] Comment on above: Performed By: #### L [id number] ####[facility] ([facility])[address] [place] [address] Urea nitrogen [Mass/Vol] 23 mg/dL Normal 7-25 [facility] Comment on above: Performed By: #### L [id number] ####[facility] ([facility])[address] [place] [address] UREA NITROGEN/CREATININE (MASS RATIO) IN SER/PLAS 21.7 Normal [facility] Comment on above: Performed By: #### L [id number] ####[facility] ([facility])[address] [place] [address] CBC WITH AUTO DIFFERENTIALon 07-10-2023 Basophils (Bld) [#/Vol] 0.02 10*3/uL Normal 0.00-0.20 [facility] Comment on above: Performed By: #### L [id number] ####[facility] ([facility])[address] [place] [address] Basophils/100 WBC (Bld) 0.2 % Normal 0.0-1.0 [facility] Comment on above: Performed By: #### L [id number] ####[facility] ([facility])[address] [place] [address] Eosinophils (Bld) [#/Vol] 0.53 10*3/uL High 0.00-0.50 [facility] Comment on above: Performed By: #### L [id number] ####[facility] ([facility])[address] [place] [address] Eosinophils/100 WBC (Bld) 5.0 % Normal 0.0-6.0 [facility] Comment on above: Performed By: #### L [id number] ####[facility] ([facility])[address] [place] [address] Erythrocyte distribution width (RBC) [Ratio] 15.3 % High 11.5-15.0 [facility] Comment on above: Performed By: #### L [id number] ####[facility] ([facility])[address] [place] [address] ERYTHROCYTE MEAN CORPUSCULAR HEMOGLOBIN CONCENTRATION (G/DL) BY AUTOMATED 32.9 g/dL Normal 32.0-35.0 [facility] Comment on above: Performed By: #### L [id number] ####[facility] ([facility])[address] [place] [address] Hematocrit (Bld) [Volume fraction] 42.6 % Normal 36.0-48.0 [facility] Comment on above: Performed By: #### L [id number] ####[facility] [place] [address] Hemoglobin (Bld) [Mass/Vol] 14.0 g/dL Normal 12.0-15.0 [facility] Comment on above: Performed By: #### L [id number] ####[facility] ([facility])[address] [place] [address] Immature granulocytes (Bld) [#/Vol] 0.02 10*3/uL Normal 0.00-0.20 [facility] Comment on above: Performed By: #### L [id number] ####[facility] ([facility])[address] [place] [address] Immature granulocytes/100 WBC (Bld) 0.2 % Normal 0.0-1.0 [facility] Comment on above: Performed By: #### L [id number] ####[facility] ([facility])[address] [place] [address] Lymphocytes (Bld) [#/Vol] 3.34 10*3/uL Normal 1.20-4.00 [facility] Comment on above: Performed By: #### L [id number] ####[facility] ([facility])[address] [place] [address] Lymphocytes/100 WBC (Bld) 31.7 % Normal 20.0-45.0 [facility] Comment on above: Performed By: #### L [id number] ####[facility] ([facility])[address] [place] [address] MCH (RBC) [Entitic mass] 28.3 pg Normal 27.0-33.0 [facility] Comment on above: Performed By: #### L [id number] ####[facility] ([facility])[address] [place] [address] MCV (RBC) [Entitic vol] 86.2 fL Normal 82.0-98.0 [facility] Comment on above: Performed By: #### L [id number] ####[facility] ([facility])[address] [place] [address] Monocytes (Bld) [#/Vol] 0.60 10*3/uL Normal 0.10-1.00 [facility] Comment on above: Performed By: #### L [id number] ####[facility] ([facility])[address] [place] [address] Monocytes/100 WBC (Bld) 5.7 % Normal 5.0-12.0 [facility] Comment on above: Performed By: #### L [id number] ####[facility] ([facility])[address] [place] [address] Neutrophils (Bld) [#/Vol] 6.01 10*3/uL Normal 1.60-7.60 [facility] Comment on above: Performed By: #### L [id number] ####[facility] ([facility])[address] [place] [address] Neutrophils/100 WBC (Bld) 57.2 % Normal 40.0-72.0 [facility] Comment on above: Performed By: #### L [id number] ####[facility] ([facility] [place] [address] NRBC (PER 100 WBCS) BY AUTOMATED COUNT 0.0 % Normal 0 [facility] Comment on above: Performed By: #### L [id number] ####[facility] ([facility])[address] [place] [address] PLATELETS (10*3/UL) IN BLOOD AUTOMATED COUNT 329 10*3/uL Normal 150-400 [facility] Comment on above: Performed By: #### L [id number] ####[facility] ([facility] [place] [address] RBC (Bld) [#/Vol] 4.94 10*6/uL Normal 3.80-5.00 [facility] Comment on above: Performed By: #### L [id number] ####[facility] ([facility])[address] [place] [address] WBC (Bld) [#/Vol] 10.52 10*3/uL Normal 4.00-10.60 [facility] Comment on above: Performed By: #### L [id number] ####[facility] ([facility])[address] [place] [address] HPon 07-10-2023 HP History Of Present Illness [...] Problems: Junctional bradycardia Pacemaker Loree Chance MD [facility] 30on 07-09-2023 30 Problem: Cardiovascular - [...] renal function maintained Outcome: Progressing Flowsheets (Taken 07/09/2023 0815) Hemodynamic stability and optimal renal function maintained: Monitor labs and assess for signs and symptoms of volume excess or deficit Monitor intake, output and patient weight Monitor urine specific gravity, serum osmolarity and serum sodium as indicated or ordered Goal: Glucose maintained within prescribed range Outcome: Progressing Flowsheets (Taken 07/09/2023 0815) Glucose maintained within prescribed range: Monitor blood glucose as ordered Assess for signs and symptoms of hyperglycemia and hypoglycemia Administer ordered medications to maintain glucose within target range The patient is Moderately Stable - Low risk of patient condition declining or worsening The patient's goals for the shift include comfort The clinical goals for the shift include pacemaker placement without issues Normal [facility] 30 Daily Case Managemen t Update [...] Consultation Consultation and Management 07/06/23 1050 Normal [facility] BASIC METABOLIC PANELon 06-15 Anion gap [Moles/Vol] 9 mmol/L Normal 7-20 [facility] Comment on above: Performed By: #### L [id number] #### [facility] ([facility]) [address] [place] [address] Calcium [Mass/Vol] 9.1 mg/dL Normal 8.6-10.3 [facility] Comment on above: Performed By: #### L [id number] #### [facility] ([facility]) [address] [place] [address] Chloride [Moles/Vol] 99 mmol/L Normal 98-107 [facility] Comment on above: Performed By: #### L [id number] #### [facility] ([facility]) [address] [place] [address] CO2 [Moles/Vol] 32 mmol/L High 21-31 [facility] Comment on above: Performed By: #### L [id number] #### [facility] ([facility]) [address] [place] [address] Creatinine [Mass/Vol] 0.98 mg/dL Normal 0.60-1.20 [facility] Comment on above: Performed By: #### L [id number] #### [facility] ([facility]) [address] [place] [address] GLOMERULAR FILTRATION RATE ML/MIN/1.73 SQ M.PREDICTED 65.3 mL/min/1.73m*2 Normal >60.0 [facility] Comment on above: Result Comment: [facility]???s estimated glomerular filtration rate (eGFR) will [...] individuals. Performed By: #### L [id number] #### [facility] ([facility]) [address] [place] [address] Glucose [Mass/Vol] 131 mg/dL High 70-100 [facility] Comment on above: Performed By: #### L [id number] #### [facility] ([facility]) [address] [place] [address] Potassium [Moles/Vol] 4.3 mmol/L Normal 3.5-5.1 [facility] Comment on above: Performed By: #### L [id number] #### [facility] ([facility] [address] [place] [address] Sodium [Moles/Vol] 136 mmol/L Normal 136-145 [facility] Comment on above: Performed By: #### L [id number] #### [facility] ([facility] [address] [place] [address] Urea nitrogen [Mass/Vol] 23 mg/dL Normal 7-25 [facility] Comment on above: Performed By: #### L [id number] #### [facility] ([facility]) [address] [address] UREA NITROGEN/CREATININE (MASS RATIO) IN SER/PLAS 23.5 Normal [facility] Comment on above: Performed By: #### L [id number] #### [facility] ([facility]) [address] [place] [address] CBC WITH AUTO DIFFERENTIALon 07-09-2023 Basophils (Bld) [#/Vol] 0.03 10*3/uL Normal 0.00-0.20 [facility] Comment on above: Performed By: #### L [id number] #### [facility] ([facility] [address] [place] [address] Basophils/100 WBC (Bld) 0.3 % Normal 0.0-1.0 [facility] Comment on above: Performed By: #### L [id number] #### [facility] ([facility] [address] [place] [address] Eosinophils (Bld) [#/Vol] 0.54 10*3/uL High 0.00-0.50 [facility] Comment on above: Performed By: #### L [id number] #### [facility] ([facility] [address] [place] [address] Eosinophils/100 WBC (Bld) 4.9 % Normal 0.0-6.0 [facility] Comment on above: Performed By: #### L [id number] #### [facility] ([facility]) [address] [place] [address] Erythrocyte distribution width (RBC) [Ratio] 15.0 % Normal 11.5-15.0 [facility] Comment on above: Performed By: #### L [id number] #### [facility] ([facility]) [address] [place] [address] ERYTHROCYTE MEAN CORPUSCULAR HEMOGLOBIN CONCENTRATION (G/DL) BY AUTOMATED 32.8 g/dL Normal 32.0-35.0 [facility] Comment on above: Performed By: #### L [id number] #### [facility] ([facility]) [address] [place] [address] Hematocrit (Bld) [Volume fraction] 37.5 % Normal 36.0-48.0 [facility] Comment on above: Performed By: #### L [id number] #### [facility] ([facility]) [address] [address] Hemoglobin (Bld) [Mass/Vol] 12.3 g/dL Normal 12.0-15.0 [facility] Comment on above: Performed By: #### L [id number] #### [facility] ([facility]) [address] [place] [address] Immature granulocytes (Bld) [#/Vol] 0.03 10*3/uL Normal 0.00-0.20 [facility] Comment on above: Performed By: #### L [id number] #### [facility] ([facility]) [address] [place] [address] Immature granulocytes/100 WBC (Bld) 0.3 % Normal 0.0-1.0 [facility] Comment on above: Performed By: #### L [id number] #### [facility] ([facility] [address] [place] [address] Lymphocytes (Bld) [#/Vol] 3.76 10*3/uL Normal 1.20-4.00 [facility] Comment on above: Performed By: #### L [id number] #### [facility] ([facility]) [address] [place] [address] Lymphocytes/100 WBC (Bld) 34.1 % Normal 20.0-45.0 [facility] Comment on above: Performed By: #### L [id number] #### [facility] ([facility]) [address] [place] [address] MCH (RBC) [Entitic mass] 28.5 pg Normal 27.0-33.0 [facility] Comment on above: Performed By: #### L [id number] #### [facility] ([facility]) [address] [place] [address] MCV (RBC) [Entitic vol] 87.0 fL Normal 82.0-98.0 [facility] Comment on above: Performed By: #### L [id number] #### [facility] ([facility]) [address] [place] [address] Monocytes (Bld) [#/Vol] 0.64 10*3/uL Normal 0.10-1.00 [facility] Comment on above: Performed By: #### L [id number] #### [facility] ([facility]) [address] [place] [address] Monocytes/100 WBC (Bld) 5.8 % Normal 5.0-12.0 [facility] Comment on above: Performed By: #### L [id number] #### [facility] ([facility] [address] [place] [address] Neutrophils (Bld) [#/Vol] 6.03 10*3/uL Normal 1.60-7.60 [facility] Comment on above: Performed By: #### L [id number] #### [facility] ([facility]) [address] [place] [address] Neutrophils/100 WBC (Bld) 54.6 % Normal 40.0-72.0 [facility] Comment on above: Performed By: #### L [id number] #### [facility] ([facility]) [address] [place] [address] NRBC (PER 100 WBCS) BY AUTOMATED COUNT 0.0 % Normal 0 [facility] Comment on above: Performed By: #### L [id number] #### [facility] ([facility] [address] [place] [address] PLATELETS (10*3/UL) IN BLOOD AUTOMATED COUNT 285 10*3/uL Normal 150-400 [facility] Comment on above: Performed By: #### L [id number] #### [facility] ([facility] [address] [place] [address] RBC (Bld) [#/Vol] 4.31 10*6/uL Normal 3.80-5.00 [facility] Comment on above: Performed By: #### L [id number] #### [facility] ([facility]) [address] [place] [address] WBC (Bld) [#/Vol] 11.03 10*3/uL High 4.00-10.60 [facility] Comment on above: Performed By: #### L [id number] #### [facility] ([facility] [address] [place] [address] 30on 07-08-2023 30 The patient is Moderately [...] Maintains adequate nutritional intake Outcome: Progressing Normal [facility] 30 Problem: Cardiovascular - Adult Goal: Maintains optimal cardiac output and hemodynamic stability Outcome: Progressing Flowsheets (Taken 07/08/2023 08) Maintains optimal cardiac output and hemodynamic stability: Monitor blood pressure and heart rate Monitor urine output and notify Licensed Independent Practitioner for values outside of normal range Assess for signs of decreased cardiac output Goal: Absence of cardiac dysrhythmias or at baseline Outcome: Progressing Flowsheets (Taken 07/08/2023 0802) Absence of cardiac dysrhythmias or at baseline: [...] within prescribed range Outcome: Progressing Flowsheets (Taken 07/08/2023 0802) Glucose maintained within prescribed range: Monitor blood glucose as ordered Assess for signs and symptoms of hyperglycemia and hypoglycemia Administer ordered medications to maintain glucose within target range The patient is Moderately Stable - Low risk of patient condition declining or worsening The patient's goals for the shift include comfort The clinical goals for the shift include stable bp Normal [facility] BASIC METABOLIC PANELon 06-15 Anion gap [Moles/Vol] 10 mmol/L Normal 7-20 [facility] Comment on above: Performed By: #### L [id number] ####[facility] ([employer])[address] [place] [address] Calcium [Mass/Vol] 9.0 mg/dL Normal 8.6-10.3 [facility] Comment on above: Performed By: #### L [id number] ####[facility] ([facility])[address] [place] [address] Chloride [Moles/Vol] 97 mmol/L Low 98-107 [facility] Comment on above: Performed By: #### L [id number] ####[facility] ([facility])[address] [place] [address] CO2 [Moles/Vol] 33 mmol/L High 21-31 [facility] Comment on above: Performed By: #### L [id number] ####[facility] ([facility])[address] [place] [address] Creatinine [Mass/Vol] 1.30 mg/dL High 0.60-1.20 [facility] Comment on above: Performed By: #### L [id number] ####[facility] ([facility] [place] [address] GLOMERULAR FILTRATION RATE ML/MIN/1.73 SQ M.PREDICTED 46.5 mL/min/1.73m*2 Low >60.0 [facility] Comment on above: Result Comment: [facility]???s estimated glomerular filtration rate (eGFR) will [...] of individuals. Performed By: #### L [id number] ####[facility] ([facility])[address] [facility] [place] [address] Glucose [Mass/Vol] 214 mg/dL High 70-100 [facility] Comment on above: Performed By: #### L [id number] ####[facility] ([facility])[address] [place] [address] Potassium [Moles/Vol] 3.9 mmol/L Normal 3.5-5.1 [facility] Comment on above: Performed By: #### L [id number] ####[facility] ([facility])[address] [facility] [place] [address] Sodium [Moles/Vol] 136 mmol/L Normal 136-145 [facility] Comment on above: Performed By: #### L [id number] ####[facility] ([facility])[address] [place] [address] Urea nitrogen [Mass/Vol] 26 mg/dL High 7-25 [facility] Comment on above: Performed By: #### L [id number] ####[facility] ([facility])[address] [place] [address] UREA NITROGEN/CREATININE (MASS RATIO) IN SER/PLAS 20.0 Normal [facility] Comment on above: Performed By: #### L [id number] ####[facility] ([facility])[address] [place] [address] CBC WITH AUTO DIFFERENTIALon 07-08-2023 Basophils (Bld) [#/Vol] 0.04 10*3/uL Normal 0.00-0.20 [facility] Comment on above: Performed By: #### L [id number] #### [facility] ([facility]) [address] [place] [address] Basophils/100 WBC (Bld) 0.3 % Normal 0.0-1.0 [facility] Comment on above: Performed By: #### L [id number] #### [facility] ([facility]) [address] [place] [address] Eosinophils (Bld) [#/Vol] 0.51 10*3/uL High 0.00-0.50 [facility] Comment on above: Performed By: #### L [id number] #### [facility] ([facility]) [address] [place] [address] Eosinophils/100 WBC (Bld) 4.1 % Normal 0.0-6.0 [facility] Comment on above: Performed By: #### L [id number] #### [facility] ([facility]) [address] [address] Erythrocyte distribution width (RBC) [Ratio] 15.0 % Normal 11.5-15.0 [facility] Comment on above: Performed By: #### L [id number] #### [facility] ([facility]) [address] [place] [address] ERYTHROCYTE MEAN CORPUSCULAR HEMOGLOBIN CONCENTRATION (G/DL) BY AUTOMATED 31.9 g/dL Low 32.0-35.0 [facility] Comment on above: Performed By: #### L [id number] #### [facility] ([facility]) [address] [place] [address] Hematocrit (Bld) [Volume fraction] 37.9 % Normal 36.0-48.0 [facility] Comment on above: Performed By: #### L [id number] #### [facility] ([facility]) [address] [place] [address] Hemoglobin (Bld) [Mass/Vol] 12.1 g/dL Normal 12.0-15.0 [facility] Comment on above: Performed By: #### L [id number] #### [facility] ([facility]) [address] [place] [address] Immature granulocytes (Bld) [#/Vol] 0.04 10*3/uL Normal 0.00-0.20 [facility] Comment on above: Performed By: #### L [id number] #### [facility] ([facility] [address] [place] [address] Immature granulocytes/100 WBC (Bld) 0.3 % Normal 0.0-1.0 [facility] Comment on above: Performed By: #### L [id number] #### [facility] ([facility]) [address] [place] [address] Lymphocytes (Bld) [#/Vol] 4.00 10*3/uL Normal 1.20-4.00 [facility] Comment on above: Performed By: #### L [id number] #### [facility] ([facility]) [address] [place] [address] Lymphocytes/100 WBC (Bld) 32.1 % Normal 20.0-45.0 [facility] Comment on above: Performed By: #### L [id number] #### [facility] ([facility]) [address] [place] [address] MCH (RBC) [Entitic mass] 28.1 pg Normal 27.0-33.0 [facility] Comment on above: Performed By: #### L [id number] #### [facility] ([facility]) [address] [place] [address] MCV (RBC) [Entitic vol] 87.9 fL Normal 82.0-98.0 [facility] Comment on above: Performed By: #### L [id number] #### [facility] ([facility]) [address] [place] [address] Monocytes (Bld) [#/Vol] 0.85 10*3/uL Normal 0.10-1.00 [facility] Comment on above: Performed By: #### L [id number] #### [facility] ([facility]) [address] [place] [address] Monocytes/100 WBC (Bld) 6.8 % Normal 5.0-12.0 [facility] Comment on above: Performed By: #### L [id number] #### [facility] ([facility] [address] [place] [address] Neutrophils (Bld) [#/Vol] 7.02 10*3/uL Normal 1.60-7.60 [facility] Comment on above: Performed By: #### L [id number] #### [facility] ([facility]) [address] [place] [address] Neutrophils/100 WBC (Bld) 56.4 % Normal 40.0-72.0 [facility] Comment on above: Performed By: #### L [id number] #### [facility] ([facility]) [address] [place] [address] NRBC (PER 100 WBCS) BY AUTOMATED COUNT 0.0 % Normal 0 [facility] Comment on above: Performed By: #### L [id number] #### [facility] ([facility]) [address] [place] [address] PLATELETS (10*3/UL) IN BLOOD AUTOMATED COUNT 301 10*3/uL Normal 150-400 [facility] Comment on above: Performed By: #### L [id number] #### [facility] ([facility] [address] [place] [address] RBC (Bld) [#/Vol] 4.31 10*6/uL Normal 3.80-5.00 [facility] Comment on above: Performed By: #### L [id number] #### [facility] ([facility]) [address] [place] [address] WBC (Bld) [#/Vol] 12.46 10*3/uL High 4.00-10.60 [facility] Comment on above: Performed By: #### L [id number] #### [facility] ([facility]) [address] [place] [address] 30on 07-07-2023 30 The patient is Moderately Stable - Low risk of patient condition declining or worsening The patient's goals for the shift include comfort The clinical goals for the shift include vss Normal [facility] 30 Problem: Cardiovascular - Adult Goal: [...] comfort lev (more content not included)... Normal [facility] BASIC METABOLIC PANELon 02-2 Anion gap [Moles/Vol] 12 mmol/L Normal 7-20 [facility] Comment on above: Performed By: #### L [id number] #### [facility] ([facility]) [address] [place] [address] Calcium [Mass/Vol] 9.2 mg/dL Normal 8.6-10.3 [facility] Comment on above: Performed By: #### L [id number] #### [facility] ([facility] [address] [place] [address] Chloride [Moles/Vol] 97 mmol/L Low 98-107 [facility] Comment on above: Performed By: #### L [id number] #### [facility] ([facility]) [address] [place] [address] CO2 [Moles/Vol] 31 mmol/L Normal 21-31 [facility] Comment on above: Performed By: #### L [id number] #### [facility] ([facility]) [address] [place] [address] Creatinine [Mass/Vol] 1.06 mg/dL Normal 0.60-1.20 [facility] Comment on above: Performed By: #### L [id number] #### [facility] ([facility]) [address] [place] [address] GLOMERULAR FILTRATION RATE ML/MIN/1.73 SQ M.PREDICTED 59.4 mL/min/1.73m*2 Low >60.0 [facility] Comment on above: Result Comment: [facility]???s estimated glomerular filtration rate (eGFR) will [...] individuals. Performed By: #### L [id number] #### [facility] ([facility]) [address] [place] [address] Glucose [Mass/Vol] 119 mg/dL High 70-100 [facility] Comment on above: Performed By: #### L [id number] #### [facility] ([facility]) [address] [place] [address] Potassium [Moles/Vol] 4.6 mmol/L Normal 3.5-5.1 [facility] Comment on above: Performed By: #### L [id number] #### [facility] ([facility] [address] [place] [address] Sodium [Moles/Vol] 135 mmol/L Low 136-145 [facility] Comment on above: Performed By: #### L [id number] #### [facility] ([facility]) [address] [place] [address] Urea nitrogen [Mass/Vol] 21 mg/dL Normal 7-25 [facility] Comment on above: Performed By: #### L [id number] #### [facility] ([facility]) [address] [place] [address] UREA NITROGEN/CREATININE (MASS RATIO) IN SER/PLAS 19.8 Normal [facility] Comment on above: Performed By: #### L [id number] #### [facility] ([facility]) [address] [place] [address] CBC WITH AUTO DIFFERENTIALon 07-07-2023 Basophils (Bld) [#/Vol] 0.05 10*3/uL Normal 0.00-0.20 [facility] Comment on above: Performed By: #### L [id number] #### [facility] ([facility] [address] [place] [address] Basophils/100 WBC (Bld) 0.3 % Normal 0.0-1.0 [facility] Comment on above: Performed By: #### L [id number] #### [facility] ([facility] [address] [place] [address] Eosinophils (Bld) [#/Vol] 0.38 10*3/uL Normal 0.00-0.50 [facility] Comment on above: Performed By: #### L [id number] #### [facility] ([facility] [address] [place] [address] Eosinophils/100 WBC (Bld) 2.5 % Normal 0.0-6.0 [facility] Comment on above: Performed By: #### L [id number] #### [facility] ([facility]) [address] [place] [address] Erythrocyte distribution width (RBC) [Ratio] 15.5 % High 11.5-15.0 [facility] Comment on above: Performed By: #### L [id number] #### [facility] ([facility]) [address] [place] [address] ERYTHROCYTE MEAN CORPUSCULAR HEMOGLOBIN CONCENTRATION (G/DL) BY AUTOMATED 32.0 g/dL Normal 32.0-35.0 [facility] Comment on above: Performed By: #### L [id number] #### [facility] ([facility]) [address] [place] [address] Hematocrit (Bld) [Volume fraction] 38.8 % Normal 36.0-48.0 [facility] Comment on above: Performed By: #### L [id number] #### [facility] ([facility]) [address] [address] Hemoglobin (Bld) [Mass/Vol] 12.4 g/dL Normal 12.0-15.0 [facility] Comment on above: Performed By: #### L [id number] #### [facility] ([facility]) [address] [place] [address] Immature granulocytes (Bld) [#/Vol] 0.05 10*3/uL Normal 0.00-0.20 [facility] Comment on above: Performed By: #### L [id number] #### [facility] ([facility]) [address] [address] Immature granulocytes/100 WBC (Bld) 0.3 % Normal 0.0-1.0 [facility] Comment on above: Performed By: #### L [id number] #### [facility] ([facility] [address] [address] Lymphocytes (Bld) [#/Vol] 3.99 10*3/uL Normal 1.20-4.00 [facility] Comment on above: Performed By: #### L [id number] #### [facility] ([facility]) [address] [place] [address] Lymphocytes/100 WBC (Bld) 26.5 % Normal 20.0-45.0 [facility] Comment on above: Performed By: #### L [id number] #### [facility] ([facility]) [address] [place] [address] MCH (RBC) [Entitic mass] 27.9 pg Normal 27.0-33.0 [facility] Comment on above: Performed By: #### L [id number] #### [facility] ([facility]) [address] [place] [address] MCV (RBC) [Entitic vol] 87.4 fL Normal 82.0-98.0 [facility] Comment on above: Performed By: #### L [id number] #### [facility] ([facility]) [address] [place] [address] Monocytes (Bld) [#/Vol] 1.25 10*3/uL High 0.10-1.00 [facility] Comment on above: Performed By: #### L [id number] #### [facility] ([facility]) [address] [place] [address] Monocytes/100 WBC (Bld) 8.3 % Normal 5.0-12.0 [facility] Comment on above: Performed By: #### L [id number] #### [facility] ([facility]) [address] [place] [address] Neutrophils (Bld) [#/Vol] 9.31 10*3/uL High 1.60-7.60 [facility] Comment on above: Performed By: #### L [id number] #### [facility] ([facility]) [address] [place] [address] Neutrophils/100 WBC (Bld) 62.1 % Normal 40.0-72.0 [facility] Comment on above: Performed By: #### L [id number] #### [facility] ([facility]) [address] [place] [address] NRBC (PER 100 WBCS) BY AUTOMATED COUNT 0.0 % Normal 0 [facility] Comment on above: Performed By: #### L [id number] #### [facility] ([facility]) [address] [place] [address] PLATELETS (10*3/UL) IN BLOOD AUTOMATED COUNT 300 10*3/uL Normal 150-400 [facility] Comment on above: Performed By: #### L [id number] #### [facility] ([facility]) [address] [place] [address] RBC (Bld) [#/Vol] 4.44 10*6/uL Normal 3.80-5.00 [facility] Comment on above: Performed By: #### L [id number] #### [facility] ([facility]) [address] [place] [address] WBC (Bld) [#/Vol] 15.03 10*3/uL High 4.00-10.60 [facility] Comment on above: Performed By: #### L [id number] #### [facility] ([facility]) [address] [place] [address] MAGNESIUMon 07-07-2023 Magnesium [Mass/Vol] 2.3 mg/dL Normal 1.9-2.7 [facility] Comment on above: Performed By: #### L [id number] #### [facility] ([facility]) [address] [place] [address] 30on 07-06-2023 30 Daily Case Managemen t [...] Consultation Consultation and Management 07/06/23 1050 Normal [facility] 30 The patient is Moderately Stable [...] and maintained or improved Outcome: Progressing Normal [facility] 30 The patient is Moderately Stable - Low risk of patient condition declining or worsening The patient's goals for the shift include comfort The clinical goals for the shift include VSS Normal [facility] 30 The patient is Moderately Stable - Low risk of patient condition declining or worsening The patient's goals for the shift include comfort The clinical goals for the shift include VSS Normal [facility] APTTon 07-06-2023 ACTIVATED PARTIAL THROMBOPLASTIN TIME IN PPP BY COAGULATION ASSAY 25.3 Seconds Normal 25.0-35.0 [facility] Comment on above: Result Comment: Clin ical significance of the APTT is questionable in the presence of heparin. Performed By: #### L [id number] #### [facility] ([facility]) [address] [place] [address] B-TYPE NATRIURETIC PEPTIDEon 07-06-2023 Natriuretic peptide B (Bld) [Mass/Vol] 721 pg/mL High 0-100 [facility] Comment on above: Performed By: #### L [id number] #### [facility] ([facility]) [address] [place] [address] BLOOD CULTUREon 07-06-2023 Bacteria identified Cx Nom (Bld) No growth at 5 days Normal [facility] Comment on above: Performed By: #### L [id number] ####[facility] ([facility])[address] [place] [address] Order Comment: From a different site than #1. Performed By: #### L [id number] #### [facility] ([facility]) [address] [place] [address] CBC WITH AUTO DIFFERENTIALon 07-06-2023 Basophils (Bld) [#/Vol] 0.03 10*3/uL Normal 0.00-0.20 [facility] Comment on above: Performed By: #### L [id number] ####[facility] ([facility] [place] [address] Basophils/100 WBC (Bld) 0.2 % Normal 0.0-1.0 [facility] Comment on above: Performed By: #### L [id number] ####[facility] ([facility])[address] [place] [address] Eosinophils (Bld) [#/Vol] 0.11 10*3/uL Normal 0.00-0.50 [facility] Comment on above: Performed By: #### L [id number] ####[facility] ([facility])[address] [place] [address] Eosinophils/100 WBC (Bld) 0.8 % Normal 0.0-6.0 [facility] Comment on above: Performed By: #### L [id number] ####[facility] ([facility])[address] [place] [address] Erythrocyte distribution width (RBC) [Ratio] 15.1 % High 11.5-15.0 [facility] Comment on above: Performed By: #### L [id number] ####[facility] ([facility])[address] [place] [address] ERYTHROCYTE MEAN CORPUSCULAR HEMOGLOBIN CONCENTRATION (G/DL) BY AUTOMATED 32.3 g/dL Normal 32.0-35.0 [facility] Comment on above: Performed By: #### L [id number] ####[facility] ([facility])[address] [place] [address] Hematocrit (Bld) [Volume fraction] 39.0 % Normal 36.0-48.0 [facility] Comment on above: Performed By: #### L [id number] ####[facility] ([facility])[address] [place] [address] Hemoglobin (Bld) [Mass/Vol] 12.6 g/dL Normal 12.0-15.0 [facility] Comment on above: Performed By: #### L [id number] ####[facility] ([facility])[address] [place] [address] Immature granulocytes (Bld) [#/Vol] 0.04 10*3/uL Normal 0.00-0.20 [facility] Comment on above: Performed By: #### L [id number] ####[facility] ([facility])[address] [place] [address] Immature granulocytes/100 WBC (Bld) 0.3 % Normal 0.0-1.0 [facility] Comment on above: Performed By: #### L [id number] ####[facility] ([facility])[address] [place] [address] Lymphocytes (Bld) [#/Vol] 2.75 10*3/uL Normal 1.20-4.00 [facility] Comment on above: Performed By: #### L [id number] ####[facility] ([facility])[address] [place] [address] Lymphocytes/100 WBC (Bld) 19.1 % Low 20.0-45.0 [facility] Comment on above: Performed By: #### L [id number] ####[facility] ([facility])[address] [place] [address] MCH (RBC) [Entitic mass] 27.9 pg Normal 27.0-33.0 [facility] Comment on above: Performed By: #### L [id number] ####[facility] ([facility] [place] [address] MCV (RBC) [Entitic vol] 86.5 fL Normal 82.0-98.0 [facility] Comment on above: Performed By: #### L [id number] ####[facility] ([facility] [place] [address] Monocytes (Bld) [#/Vol] 1.31 10*3/uL High 0.10-1.00 [facility] Comment on above: Performed By: #### L [id number] ####[facility] ([facility])[address] [place] [address] Monocytes/100 WBC (Bld) 9.1 % Normal 5.0-12.0 [facility] Comment on above: Performed By: #### L [id number] ####[facility] ([facility] [place] [address] Neutrophils (Bld) [#/Vol] 10.18 10*3/uL High 1.60-7.60 [facility] Comment on above: Performed By: #### L [id number] ####[facility] ([facility])[address] [place] [address] Neutrophils/100 WBC (Bld) 70.5 % Normal 40.0-72.0 [facility] Comment on above: Performed By: #### L [id number] ####[facility] ([facility] [place] [address] NRBC (PER 100 WBCS) BY AUTOMATED COUNT 0.0 % Normal 0 [facility] Comment on above: Performed By: #### L [id number] ####[facility] ([facility])[address] [place] [address] PLATELETS (10*3/UL) IN BLOOD AUTOMATED COUNT 321 10*3/uL Normal 150-400 [facility] Comment on above: Performed By: #### L [id number] ####[facility] ([facility] [place] [address] RBC (Bld) [#/Vol] 4.51 10*6/uL Normal 3.80-5.00 [facility] Comment on above: Performed By: #### L [id number] ####[facility] ([facility])[address] [place] [address] WBC (Bld) [#/Vol] 14.42 10*3/uL High 4.00-10.60 [facility] Comment on above: Performed By: #### L [id number] ####[facility] ([facility])[address] [place] [address] [facility] 07-06-2023 CREATINE KINASE (U/L) IN SER/PLAS 36.0 U/L Normal 30.0-223.0 [facility] Comment on above: Performed By: #### L [id number] #### [facility] ([facility]) [address] [place] [address] COMPREHENSIVE METABOLIC PANE [place] 07-06-2023 Albumin [Mass/Vol] 4.6 g/dL Normal 3.5-5.7 [facility] Comment on above: Performed By: #### L [id number] #### [facility] ([facility] [address] [place] [address] ALP [Catalytic activity/Vol] 47 U/L Normal 34-104 [facility] Comment on above: Performed By: #### L [id number] #### [facility] ([facility] [address] [place] [address] ALT [Catalytic activity/Vol] 13 U/L Normal 7-52 [facility] Comment on above: Performed By: #### L [id number] #### [facility] ([facility] [address] [place] [address] Anion gap [Moles/Vol] 14 mmol/L Normal 7-20 [facility] Comment on above: Performed By: #### L [id number] #### [facility] ([facility]) [address] [place] [address] AST [Catalytic activity/Vol] 17 U/L Normal 13-39 [facility] Comment on above: Performed By: #### L [id number] #### [facility] ([facility] [address] [place] [address] Bilirubin [Mass/Vol] 0.5 mg/dL Normal 0.3-1.0 [facility] Comment on above: Performed By: #### L [id number] #### [facility] ([facility] [address] [place] [address] Calcium [Mass/Vol] 8.9 mg/dL Normal 8.6-10.3 [facility] Comment on above: Performed By: #### L [id number] #### [facility] ([facility]) [address] [place] [address] Chloride [Moles/Vol] 98 mmol/L Normal 98-107 [facility] Comment on above: Performed By: #### L [id number] #### [facility] ([facility] [address] [place] [address] CO2 [Moles/Vol] 28 mmol/L Normal 21-31 [facility] Comment on above: Performed By: #### L [id number] #### [facility] ([facility] [address] [place] [address] Creatinine [Mass/Vol] 1.23 mg/dL High 0.60-1.20 [facility] Comment on above: Performed By: #### L [id number] #### [facility] ([facility] [address] [place] [address] GLOMERULAR FILTRATION RATE ML/MIN/1.73 SQ M.PREDICTED 49.7 mL/min/1.73m*2 Low >60.0 [facility] Comment on above: Result Comment: [facility]???s estimated glomerular filtration rate (eGFR) will [...] individuals. Performed By: #### L [id number] #### [facility] ([facility]) [address] [place] [address] Glucose [Mass/Vol] 119 mg/dL High 70-100 [facility] Comment on above: Performed By: #### L [id number] #### [facility] ([facility]) [address] [place] [address] Potassium [Moles/Vol] 4.6 mmol/L Normal 3.5-5.1 [facility] Comment on above: Performed By: #### L [id number] #### [facility] ([facility]) [address] [place] [address] Protein [Mass/Vol] 6.8 g/dL Normal 6.0-8.3 [facility] Comment on above: Performed By: #### L [id number] #### [facility] ([facility]) [address] [place] [address] Sodium [Moles/Vol] 135 mmol/L Low 136-145 [facility] Comment on above: Performed By: #### L [id number] #### [facility] ([facility]) [address] [place] [address] Urea nitrogen [Mass/Vol] 23 mg/dL Normal 7-25 [facility] Comment on above: Performed By: #### L [id number] #### [facility] ([facility]) [address] [place] [address] UREA NITROGEN/CREATININE (MASS RATIO) IN SER/PLAS 18.7 Normal [facility] Comment on above: Performed By: #### L [id number] #### [facility] ([facility]) [address] [place] [address] CONSULTon 07-06-2023 CONSULT - Attestation signed by [...] of bradycardia. Patient has been transferred to [facility] for consideration of pacemaker placement. As per [...] -- -- 7 (more content not included)... Normal [facility] ED Clinical Summaryon 2023 ED Clinical Summary [place] [id number] ED Clinical Summary Person Information Name: VIVIAN VANN [place] Age: 63 Years : 1960 Sex: Female Language: Maltese PCP: Екатерина Robert MD Marital Status: Phone: [...] 07/05/2023 22:16:25 07/05/2023 22:16:25 07/05/2023 22:16:25 ADDRESS: [address] [place] [id number] PHYS DOC NOTES: MEDICAL INFORMATION: Prescriptions Given: [...] 3:Tobacco abuse; 4:CHF (congestive heart failure) Normal [facility] ED Patient Education Noteon 07-06-2023 ED Patient Education Note Normal [facility] ED Patient Summaryon 024 ED Patient Summary [address] [address] Patient Discharge Instructions Person Information Name: VIVIAN VANN Age: 63 Years Arrival Date: 07/05/2023 15:01:40 Discharge Diagnosis: 1:Atrial fibrillation with slow ventricular response; 2:Elevated troponin; 3:Tobacco abuse; 4:CHF (congestive heart failure) Primary Care Physician: Екатерина Robert MD Provider Information Primary Provider: Arsenio Martin DO [employer] Repairer:None The exam and treatment you received in the Emergency Department were for an urgent problem and are not intended as complete care. It is important that you follow up with a doctor, nurse practitioner, or physician?s senior office support assistant sosa for ongoing care. If your symptoms become [...] opioids can be used to help relieve pfudmzqp-hn-vpbsob pain and are often prescribed following a [...] be struggling with addiction, tell your health aged or disabled care worker and ask for guidance or call SAMHSA?S National Helpline at 3-281-801-UMWV. v Source: [place] Department of Health and Human Services/Center for Disease Control & Preve (more content not included)... Normal [facility] ETHANOLon 07-06-2023 ETHANOL (MG/DL) IN SER/PLAS <10 Normal [facility] Comment on above: Performed By: #### L [id number] ####[facility] ([facility])[address] [place] [address] ETHANOL CALCULATED (%) Normal [facility] Comment on above: Performed By: #### L [id number] ####[facility] ([facility])[address] [place] [address] HEMOGLOBIN A1Con 07-06-2023 Glucose [Mass/Vol] 148 mg/dL Normal [facility] Comment on above: Performed By: #### L [id number] #### [facility] ([facility]) [address] [place] [address] HbA1c (Bld) [Mass fraction] 6.8 % High 4.0-6.0 [facility] Comment on above: Performed By: #### L [id number] #### [facility] ([facility]) [address] [place] [address] LACTIC ACID WITH 4 HOUR REFL EXon 07-06-2023 LACTATE (MMOL/L) IN SER/PLAS 1.8 mmol/L Normal 0.5-2.2 [facility] Comment on above: Performed By: #### L [id number] ####[facility] ([facility])[address] [place] [address] LIPID PANELon 07-06-2023 CHOL/HDL 3.0 mg/dL Normal [facility] Comment on above: Performed By: #### L [id number] #### [facility] ([facility]) [address] [place] [address] Cholesterol [Mass/Vol] 143 mg/dL Normal 120-200 Un [facility] Comment on above: Performed By: #### L [id number] #### [facility] ([facility]) [address] [place] [address] Magnesium [Mass/Vol] 159 mg/dL High 40-149 [facility] Comment on above: Result Comment: TRIG LYCERIDE REFERENCE RANGE: 20 YEARS AND OLDER CARDIOVASCULAR RISK LESS THAN 150 mg/dL LOW RISK 150 TO 199 mg/dL BORDERLINE RISK 200 mg/dL AND GREATER HIGH RISK Performed By: #### L [id number] #### [facility] [address] [place] [address] Magnesium [Mass/Vol] 63 mg/dL Normal 0-160 [facility] Comment on above: Performed By: #### L [id number] #### [facility] ([facility]) [address] [place] [address] Magnesium [Mass/Vol] 48 mg/dL Normal 23-92 [facility] Comment on above: Performed By: #### L [id number] #### [facility] ([facility]) [address] [facility] [place] [address] NON HDL CHOL. (LDL+VLDL) 95 Normal [facility] Comment on above: Performed By: #### L [id number] #### [facility] ([facility]) [address] [facility] [place] [address] TOTAL VLDL-C 32 mg/dL Normal 0-40 [facility] Comment on above: Performed By: #### L [id number] #### [facility] ([facility]) [address] [facility] [place] [address] MAGNESIUMon 07-06-2023 Magnesium [Mass/Vol] 2.2 mg/dL Normal 1.9-2.7 [facility] Comment on above: Performed By: #### L [id number] #### [facility] ([facility]) [address] [place] [address] PHOSPHORUSon 07-06-2023 Magnesium [Mass/Vol] 5.2 mg/dL High 2.5-5.0 [facility] Comment on above: Performed By: #### L [id number] #### [facility] ([facility]) [address] [facility] [place] [address] PROTIME-INRon 07-06-2023 INR IN PPP BY COAGULATION ASSAY 1.00 Normal 0.90-1.10 [facility] Comment on above: Result Comment: ACCC [...] CHEST 1995;108:231S-246S. Performed By: #### L [id number] ####[facility] ([facility])[address] [place] [address] PROTHROMBIN TIME (PT) IN PPP BY COAGULATION ASSAY 13.2 Seconds Normal 12.3-14.8 [facility] Comment on above: Performed By: #### L [id number] ####[facility] ([facility])[address] [place] [address] TOXICOLOGY PANEL URINEon AMPHETAMINE+METHAMPHET AMINE SCREEN (PRESENCE) IN URINE Negative Normal Negative [facility] Comment on above: Performed By: #### L [id number] #### [facility] ([facility]) [address] [place] [address] BARBITURATES PRESENCE IN URINE BY SCREEN METHOD Negative Normal Negative [facility] Comment on above: Performed By: #### L [id number] #### [facility] ([facility]) [address] [place] [address] Benzodiazepines Ql (U) Positive Abnormal Negative [facility] Comment on above: Performed By: #### L [id number] #### [facility] ([facility]) [address] [place] [address] CANNABINOID (PRESENCE) IN URINE BY SCREEN METHOD Positive Abnormal Negative [facility] Comment on above: Performed By: #### L [id number] #### [facility] ([facility]) [address] [place] [address] Cocaine Ql (U) Negative Normal Negative [facility] Comment on above: Performed By: #### L [id number] #### [facility] ([facility]) [address] [place] [address] METHADONE (PRESENCE) IN URINE BY SCREEN METHOD Negative Normal Negative [facility] Comment on above: Performed By: #### L [id number] #### [facility] ([facility]) [address] [place] [address] OPIATES (PRESENCE) IN URINE BY SCREEN METHOD Negative Normal Negative [facility] Comment on above: Performed By: #### L [id number] #### [facility] ([facility]) [address] [place] [address] PHENCYCLIDINE PRESENCE IN URINE BY SCREEN METHOD Negative Normal Negative [facility] Comment on above: Performed By: #### L [id number] #### [facility] ([facility]) [address] [place] [address] Propoxyphene Screen Ql (U) Negative Normal Negative [facility] Comment on above: Performed By: #### L [id number] #### [facility] ([facility]) [address] [place] [address] TRICYCLIC ANTIDEPRESSANTS (PRESENCE) IN URINE Positive Abnormal Negative [facility] Comment on above: Performed By: #### L [id number] #### [facility] ([facility]) [address] [place] [address] TROPONIN Ion 07-06-2023 Troponin I.cardiac [Mass/Vol] 0.12 ng/mL Critically high 0.00-0.04 [facility] Comment on above: Result Comment: M-NM EVIOUS CRITICAL RESULT Previous result verified on 07/06/2023 1236 on specimen/case [id number] called with component Troponin I for procedure Troponin I with value 0.11 ng/mL. Performed By: #### L [id number] #### [facility] ([facility]) [address] [place] [address] Troponin I.cardiac [Mass/Vol] 0.11 ng/mL Critically high 0.00-0.04 [facility] Comment on above: Result Comment: M-NM EVIOUS CRITICAL RESULT Previous result verified on 07/06/2023 0444 on specimen/case [id number] called with component Troponin I for procedure Troponin I with value 0.12 ng/mL. Performed By: #### L [id number] #### [facility] ([facility]) [address] [place] [address] Troponin I.cardiac [Mass/Vol] 0.12 ng/mL Critically high 0.00-0.04 [facility] Comment on above: Result Comment: M-CR ITICAL RESULT(S) REVIEWED, CALLED TO AND READ BACK BY PRIYANKA LEOS RN AT 0442 M-TROPONIN INITIAL CRITICAL HIGH; RESPUN AND RETESTED Performed By: #### L [id number] #### [facility] ([facility]) [address] [place] [address] TSH3 REFLEX TO FT4on 024 THYROTROPIN (MIU/L) IN SER/PLAS BY DETECTION LIMIT <= 0.05 MIU/L 4.25 mIU/L Normal 0.34-5.60 [facility] Comment on above: Performed By: #### L [id number] #### [facility] ([facility]) [address] [place] [address] Transfer Documentson 024 Transfer Documents [id number]# 1.00TIFF Normal [facility] URINALYSIS WITH REFLEX CULTU REon 07-06-2023 BILIRUBIN, TOTAL PRESENCE IN URINE Negative Normal Negative [facility] Comment on above: Order Comment: Micro scopics not performed on urines with negative chemical reactions unless requested on original order. Performed By: #### L [id number] #### [facility] ([facility]) [address] [place] [address] Clarity (U) Clear Normal Clear [facility] Comment on above: Order Comment: Micro scopics not performed on urines with negative chemical reactions unless requested on original order. Performed By: #### L [id number] #### [facility] ([facility]) [address] [place] [address] Color (U) Yellow Normal Yellow [facility] Comment on above: Order Comment: Micro scopics not performed on urines with negative chemical reactions unless requested on original order. Performed By: #### L [id number] #### [facility] ([facility]) [address] [place] [address] Glucose (U) [Mass/Vol] mg/dL Abnormal Negative [facility] Comment on above: Order Comment: Micro scopics not performed on urines with negative chemical reactions unless requested on original order. Performed By: #### L [id number] #### [facility] ([facility]) [address] [place] [address] HEMOGLOBIN PRESENCE IN URINE Negative Normal Negative [facility] Comment on above: Order Comment: Micro scopics not performed on urines with negative chemical reactions unless requested on original order. Performed By: #### L [id number] #### [facility] ([facility] [address] [place] [address] Ketones Ql (U) Negative Normal Negative [facility] Comment on above: Order Comment: Micro scopics not performed on urines with negative chemical reactions unless requested on original order. Performed By: #### L [id number] #### [facility] ([facility]) [address] [place] [address] LEUKOCYTE ESTERASE PRESENCE IN URINE BY TEST STRIP Negative Normal Negative [facility] Comment on above: Order Comment: Micro scopics not performed on urines with negative chemical reactions unless requested on original order. Performed By: #### L [id number] #### [facility] ([facility]) [address] [place] [address] NITRITE PRESENCE IN URINE Negative Normal Negative [facility] Comment on above: Order Comment: Micro scopics not performed on urines with negative chemical reactions unless requested on original order. Performed By: #### L [id number] #### [facility] ([facility]) [address] [place] [address] pH (U) 6.0 [pH] Normal 5.0-8.0 [facility] Comment on above: Order Comment: Micro scopics not performed on urines with negative chemical reactions unless requested on original order. Performed By: #### L [id number] #### [facility] ([facility]) [address] [place] [address] Protein (U) [Mass/Vol] Negative Normal Negative [facility] Comment on above: Order Comment: Micro scopics not performed on urines with negative chemical reactions unless requested on original order. Performed By: #### L [id number] #### [facility] ([facility]) [address] [place] [address] Specific gravity (U) [Rel density] 1.013 Low 1.015-1.020 [facility] Comment on above: Order Comment: Micro scopics not performed on urines with negative chemical reactions unless requested on original order. Performed By: #### L [id number] #### [facility] ([facility]) [address] [place] [address] BILIRUBIN, TOTAL PRESENCE IN URINE Negative Normal Negative [facility] Comment on above: Order Comment: Micro scopics not performed on urines with negative chemical reactions unless requested on original order. Performed By: #### L [id number] #### [facility] ([facility]) [address] [place] [address] Clarity (U) Clear Normal Clear [facility] Comment on above: Order Comment: Micro scopics not performed on urines with negative chemical reactions unless requested on original order. Performed By: #### L [id number] #### [facility] ([facility]) [address] [place] [address] Color (U) Yellow Normal Yellow [facility] Comment on above: Order Comment: Micro scopics not performed on urines with negative chemical reactions unless requested on original order. Performed By: #### L [id number] #### [facility] ([facility]) [address] [place] [address] Glucose (U) [Mass/Vol] mg/dL Abnormal Negative [facility] Comment on above: Order Comment: Micro scopics not performed on urines with negative chemical reactions unless requested on original order. Performed By: #### L [id number] #### [facility] ([facility]) [address] [place] [address] HEMOGLOBIN PRESENCE IN URINE Negative Normal Negative [facility] Comment on above: Order Comment: Micro scopics not performed on urines with negative chemical reactions unless requested on original order. Performed By: #### L [id number] #### [facility] ([facility]) [address] [place] [address] Ketones Ql (U) Negative Normal Negative [facility] Comment on above: Order Comment: Micro scopics not performed on urines with negative chemical reactions unless requested on original order. Performed By: #### L [id number] #### [facility] ([facility]) [address] [place] [address] LEUKOCYTE ESTERASE PRESENCE IN URINE BY TEST STRIP Negative Normal Negative [facility] Comment on above: Order Comment: Micro scopics not performed on urines with negative chemical reactions unless requested on original order. Performed By: #### L [id number] #### [facility] ([facility]) [address] [place] [address] NITRITE PRESENCE IN URINE Negative Normal Negative [facility] Comment on above: Order Comment: Micro scopics not performed on urines with negative chemical reactions unless requested on original order. Performed By: #### L [id number] #### [facility] ([facility]) [address] [place] [address] pH (U) 6.0 [pH] Normal 5.0-8.0 [facility] Comment on above: Order Comment: Micro scopics not performed on urines with negative chemical reactions unless requested on original order. Performed By: #### L [id number] #### [facility] ([facility]) [address] [place] [address] Protein (U) [Mass/Vol] Negative Normal Negative [facility] Comment on above: Order Comment: Micro scopics not performed on urines with negative chemical reactions unless requested on original order. Performed By: #### L [id number] #### [facility] ([facility]) [address] [place] [address] Specific gravity (U) [Rel density] 1.017 Normal 1.015-1.020 [facility] Comment on above: Order Comment: Micro scopics not performed on urines with negative chemical reactions unless requested on original order. Performed By: #### L [id number] #### [facility] ([facility]) [address] [place] [address] BMPon 07-05-2023 Anion gap [Moles/Vol] 15 mmol/L Normal 6-16 [facility] Comment on above: Performed By: #### 1 9153428, 7910978, 39385305, 73910739, 3938317, 05606333, 0316928, 7333484, 8518947, 0606244 ####[facility] [address] [place] [address] BUN/Creat Ratio 15 No Units Normal 10-20 [facility] Comment on above: Performed By: #### 1 6012604, 1877761, 43716177, 19890296, 5601171, 44926544, 0591644, 6029679, 1198142, 4466695 ####[facility] [address] [place] [address] Calcium [Mass/Vol] 10.1 mg/dL Normal 8.9-11.1 [facility] Comment on above: Performed By: #### 1 7106334, 8371453, 59327443, 08927513, 9507010, 97776314, 8022341, 0584676, 7971105, 0818679 ####[facility] [address] [place] [address] Chloride [Moles/Vol] 96 mmol/L Low 101-111 [facility] Comment on above: Performed By: #### 1 4193977, 2685698, 36404651, 32968338, 3596921, 36746906, 9335589, 0629981, 4129075, 8838731 ####[facility] [address] [place] [address] CO2 [Moles/Vol] 32 mmol/L High 21-31 [facility] Comment on above: Performed By: #### 1 9559243, 9458142, 47708589, 54005012, 4647459, 80966766, 7016960, 5567759, 0756307, 6101727 ####[facility] [address] [place] [address] Creatinine [Mass/Vol] 1.5 mg/dL High 0.5-1.3 [facility] Comment on above: Performed By: #### 1 4811593, 8329525, 58531555, 66033886, 1753439, 98808211, 0371860, 2389483, 0965260, 7874106 ####[address] [address] Glucose [Mass/Vol] 147 mg/dL Normal 55-199 [facility] Comment on above: Performed By: #### 1 6055197, 7514312, 74909428, 09935416, 5735141, 30640505, 2558226, 6569502, 5314310, 8026411 ####[address] [place] [address] Potassium [Moles/Vol] 5.1 mmol/L Normal 3.5-5.3 [facility] Comment on above: Performed By: #### 1 7236793, 9196964, 59737103, 94881624, 4804093, 72351423, 9188927, 3869429, 4323832, 4045204 ####[facility] [address] [place] [address] Sodium [Moles/Vol] 138 mmol/L Normal 135-145 [facility] Comment on above: Performed By: #### 1 3032046, 0461225, 43319327, 46983505, 1633096, 61658472, 3828223, 9190954, 0090066, 6708856 ####[address] [place] [address] Urea nitrogen [Mass/Vol] 22 mg/dL High 5-21 [facility] Comment on above: Performed By: #### 1 5390701, 4911172, 19013503, 12784378, 2544842, 31121559, 6138495, 3489423, 1114649, 3575433 ####[facility] [address] [place] [address] BNPon 07-05-2023 Natriuretic peptide B (Bld) [Mass/Vol] 508 pg/mL High 5-80 [facility] Comment on above: Performed By: #### 1 8311866, 5656893, 12491152, 84910189, 9018075, 99649520, 6693578, 8049072, 0627524, 0101796 ####[facility] [address] [place] [address] CBC w/ Auto Diffon 4 Basophil Absolute 0.1 E9/L Normal 0.0-0.2 [facility] Comment on above: Performed By: #### 1 1940499, 2163516, 40879902, 20099526, 4158571, 82931615, 2629374, 6092402, 2481412, 0892762 ####[facility] [address] [place] [address] Basophils/100 WBC (Bld) 0.7 % Normal 0.0-2.0 [facility] Comment on above: Performed By: #### 1 0803620, 6521598, 92610281, 15788027, 1858452, 20936890, 4825800, 9697218, 7363445, 9242442 ####[facility] [address] [place] [address] Eos Absolute 0.4 E9/L Normal 0.0-0.5 [facility] Comment on above: Performed By: #### 1 5678212, 2900415, 65881440, 31625247, 9844760, 85653258, 0405777, 5126242, 1151892, 8576877 ####[address] [place] [address] Eosinophils/100 WBC (Bld) 3.7 % Normal 0.0-8.0 [facility] Comment on above: Performed By: #### 1 7691913, 6094632, 44514779, 40505396, 8668775, 95993906, 6697464, 3435189, 5574719, 8854426 ####[address] [place] [address] Erythrocyte distribution width (RBC) [Ratio] 16.8 % High 10.9-14.2 [facility] Comment on above: Performed By: #### 1 8467198, 4926195, 79448831, 54558012, 8858302, 45725515, 2614951, 4843355, 0249403, 4862291 ####[address] [place] [address] Hematocrit (Bld) [Volume fraction] 46.0 % Normal 34.0-46.0 [facility] Comment on above: Performed By: #### 1 3942102, 9516818, 06954844, 61937015, 8737458, 72593348, 6330378, 3806643, 6279023, 5287591 ####[address] [place] [address] Hemoglobin (Bld) [Mass/Vol] 15.1 g/dL Normal 12.0-16.0 [facility] Comment on above: Performed By: #### 1 8284379, 6512621, 62120597, 25490078, 9261216, 00966605, 8633535, 6586098, 4384597, 7888975 ####[address] [place] [address] Lymph Absolute 3.6 E9/L Normal 1.0-4.0 [facility] Comment on above: Performed By: #### 1 1498571, 0925380, 24287867, 88693920, 7052676, 03864756, 9841921, 4056156, 1436824, 7921400 ####[facility] [address] [place] [address] Lymphocytes/100 WBC (Bld) 30.9 % Normal 14.0-50.0 [facility] Comment on above: Performed By: #### 1 8285680, 9947320, 12805934, 07147771, 3464466, 33592776, 9549822, 1067460, 6292107, 4027169 ####[facility] [address] [place] [address] MCH (RBC) [Entitic mass] 27.6 pg Normal 27.0-34.0 [facility] Comment on above: Performed By: #### 1 0701537, 1488293, 94521529, 01905502, 2688972, 01787975, 8414096, 6249267, 0306344, 9772217 ####[place] [address] MCHC (RBC) [Mass/Vol] 32.8 g/dL Normal 31.4-36.0 [facility] Comment on above: Performed By: #### 1 0420603, 0881048, 23002341, 67010935, 4150146, 47666260, 0158657, 6657961, 8619328, 0305535 ####[address] [place] [address] MCV (RBC) [Entitic vol] 84.3 fL Normal 80.0-100.0 [facility] Comment on above: Performed By: #### 1 5007796, 5372624, 64072757, 06774538, 8794465, 44843884, 6332511, 5873505, 9612184, 7272963 ####[address] [place] [address] Haskell Absolute 0.9 E9/L Normal 0.2-1.0 [facility] Comment on above: Performed By: #### 1 3712882, 7680709, 48950877, 51582978, 8741750, 75337669, 2231593, 4295342, 2621415, 4237242 ####[address] [place] [address] Monocytes/100 WBC (Bld) 8.1 % Normal 4.0-14.0 [facility] Comment on above: Performed By: #### 1 2177609, 8989726, 05329792, 82896127, 0901685, 70344736, 1105446, 3952092, 3194063, 1258033 ####[address] [address] Neutro Absolute 6.6 E9/L Normal 2.0-7.5 [facility] Comment on above: Performed By: #### 1 8545181, 4932670, 54982156, 22643207, 7016340, 30385962, 3550471, 4739669, 8608051, 1921707 ####[address] [address] Neutro Auto 56.6 % Normal 36.0-75.0 [facility] Comment on above: Performed By: #### 1 9470941, 0193986, 35189263, 65334733, 8800800, 86140136, 7640957, 4307820, 2824882, 6524559 ####[address] [address] Platelet 431.0 E9/L Normal 150.0-500.0 [facility] Comment on above: Performed By: #### 1 4773307, 6105908, 04084416, 72046839, 3519012, [id number], 5614262, 3640655, 9142661, 8095317 ####[address] [place] [address] Platelet mean volume (Bld) [Entitic vol] 8.5 fL Normal 6.4-10.8 [facility] Comment on above: Performed By: #### 1 [id number], 7266322, 88645699, 26941516, 2131774, 78006264, 6746150, 7944564, 1789972, 8492277 ####[facility] [address] [place] [address] RBC 5.5 E12/L Normal 4.3-5.9 [facility] Comment on above: Performed By: #### 1 0508624, 0078505, 99248093, 13736358, 1492400, 57143317, 6888990, 8337112, 5054562, 1044499 ####[facility] [address] [place] [address] WBC 11.6 E9/L High 4.0-11.0 [facility] Comment on above: Performed By: #### 1 4758096, 7193269, 57599946, 71138471, 5739724, 18771102, 4832532, 1303353, 7649783, 7072824 ####[facility] [address] [place] [address] CHEMISTRYOrdered By: SYSTEM SYSTEM on 07-05-2023 Troponin 51.10 pg/mL Invalid Interpretation Code 10.10 - 27.10 pg/mL [facility] Comment on above: Result Comment: Crit ical Result I_TnIHS:51.1 Called to and read back by: DR. JUAN MAS at: 07/05/2023 21:51:38 by:[id number] Critical Result Verified by Previous Result Interpretive Data: T he 95% CI (Confidence Interval) PPV (Positive Predictive Value) for myocardial infarction in females is 38 pg/mL, in males 51 pg/mL. The results should be used in conjunction with clinical conditions of myocardial infarction. (Access High Sensitivity Troponin I Instructions For Use, [employer], December 2017) Troponin 51.70 pg/mL Invalid Interpretation Code 10.10 - 27.10 pg/mL [facility] Comment on above: Interpretive Data: T he 95% CI (Confidence Interval) PPV (Positive Predictive Value) for myocardial infarction in females is 38 pg/mL, in males 51 pg/mL. The results should be used in conjunction with clinical conditions of myocardial infarction. (Access High Sensitivity Troponin I Instructions For Use, [employer]anne[employer], December 2017) Result Comment: Crit ical Result [...] back by: JOHNNA PERKINS at: 07/05/2023 16:37:35 by:[id number] Interpretive Data: T he 95% CI (Confidence Interval) PPV (Positive Predictive Value) for myocardial infarction in females is 38 pg/mL, in males 51 pg/mL. The results should be used in conjunction with clinical conditions of myocardial infarction. (Access High Sensitivity Troponin I Instructions For Use, Johana [place], December 2017) Urea nitrogen [Mass/Vol] 22 mg/dL High 5 - 21 mg/dL [facility] Urea nitrogen/Creatinine [Mass ratio] 15 mg/mg Normal 10 - 20 [facility] CHEMISTRYOrdered By: Elias Martell on 07-05-2023 Natriuretic peptide B (Bld) [Mass/Vol] 508 pg/mL High 5 - 80 pg/mL [facility] COAGULATIONOrdered By: Richar Kumar on 07-05-2023 aPTT Coag (PPP) [Time] 27.2 s Normal 25.1 - 36.5 second(s) [facility] Comment on above: Interpretive Data: Gabby mackenzie 15 days - 4 weeks 1 - [...] the same coagulation reagent and instrumentation as [facility]. Currently there are no coagulation studies available worldwide for children to 14 days, and no normal ranges. Heparin therapeutic range (represented by Anti-Factor Xa activity of 0.2 - 0.4 U/mL) corresponds to PTT of 56.6 - 109.0 sec. INR Coag (PPP) [Relative time] 1.01 {INR} Invalid Interpretation Code [facility] Comment on above: Interpretive Data: I NR results are specifically intended to assess patients stabilized on long-term Anticoagulation therapy suggested INR s Less Intensive Anticoagulation 2.0 3.0 Conventional Range 3.0 4.5 PT Coag (PPP) [Time] 11.2 s Normal 9.4 - 1 2.5 second(s) [facility] Comment on above: Interpretive Data: [...] the same coagulation reagent and instrumentation as [facility]. Currently there are no coagulation studies available worldwide for children to 14 days, and no normal ranges. Consent for Treatmenton 06-15 Consent for Treatment [id number]#1 .00TIFF Normal [facility] Digoxinon 07-05-2023 Digoxin Lvl <0.2 Low 0.5-1.9 [facility] Comment on above: Performed By: #### 1 0119163, 8570183, 95049150, 71569186, 1052754, 15090959, 3695632, 0131276, 8791033, 4598377 ####[facility] [address] [place] [address] ED Note-Physicianon 07-05-19 24 ED Note-Physician Basic Information Time Seen: Gregorio BONDCher 07/05/2023 15:06 Chief Complaint Pt ca/me in [...] patient states she was just released from [facility] 36 hours ago. She states she was [...] acute int (more content not included)... Normal [facility] Comment on above: Result Comment: Elec [...] Normal 80.0 - 100.0 fL Remisol Heme [place] Absolute 0.9 E9/L Normal 0.2 - 1.0 [...] 07-05-2023 Albumin [Mass/Vol] 4.3 g/dL Normal 3.3-5.0 [facility] Comment on above: Performed By: #### 1 6874604, 4670761, 19566431, 35631104, 0372064, 93278415, 3518293, 4071694, 0471452, 6472760 ####[facility] [address] [place] [address] Albumin/Globulin [Mass ratio] 1.4 {ratio} Normal 1.1-2.2 [facility] Comment on above: Performed By: #### 1 8239590, 8278554, 92190000, 94649423, 8010159, 12837289, 9413286, 4143620, 9824847, 7159613 ####[facility] [address] [place] [address] Alk Phos 77 Int._Unit/L Normal 21-98 [facility] Comment on above: Performed By: #### 1 5700149, 8805963, 53853486, 70637816, 3858737, 93106797, 7438621, 1529073, 2561668, 5992059 ####[facility] [address] [place] [address] ALT 20 Int._Unit/L Normal 6-46 [facility] Comment on above: Performed By: #### 1 2655704, 8731572, 82235368, 00067588, 3908278, 41071198, 8233267, 0663388, 1934937, 0753425 ####[address] [place] [address] AST 23 Int._Unit/L Normal 5-43 [facility] Comment on above: Performed By: #### 1 1086717, 7685128, 12231700, 54092139, 5854948, 11233302, 0911407, 3651603, 3760349, 0003967 ####[facility] [address] [place] [address] Bili Direct 0.1 mg/dL Normal 0.0-0.4 [facility] Comment on above: Performed By: #### 1 8501564, 4401308, 88095961, 08268523, 7794121, 16001968, 6681312, 3315284, 2335915, 5439879 ####[facility] [address] [place] [address] Bili Indirect 0.5 mg/dL Normal 0.1-0.9 [facility] Comment on above: Performed By: #### 1 0273098, 3477356, 47588816, 24281550, 1912290, 98958840, 1448502, 2233573, 6995250, 9722757 ####[facility] [address] [place] [address] Bili Total 0.6 mg/dL Normal 0.0-1.1 [facility] Comment on above: Performed By: #### 1 0375963, 4728365, 21289474, 93143278, 8024384, 40448057, 9167695, 0626853, 2983667, 6634083 ####[facility] [address] [place] [address] Globulin (S) [Mass/Vol] 3.0 g/dL Normal 1.4-4.0 [facility] Comment on above: Performed By: #### 1 5785523, 1472547, 07985491, 02935154, 8280832, 35795896, 5987320, 6881638, 1248235, 7234875 ####[address] [place] [address] Protein [Mass/Vol] 7.3 g/dL Normal 6.0-7.8 [facility] Comment on above: Performed By: #### 1 7440503, 1737647, 61057429, 33412297, 3297333, 04251023, 4444353, 6915706, 0803816, 0039871 ####[address] [address] Lipase Levelon 07-05-2023 Lipase Lvl 22 unit/L Normal 13-58 [facility] Comment on above: Performed By: #### 1 5510440, 2776775, 19812685, 71636275, 3552009, 14258382, 5336912, 2986369, 9941576, 5934368 ####[address] [place] [address] Magnesiumon 07-05-2023 Magnesium [Mass/Vol] 2.3 mg/dL Normal 1.3-2.4 [facility] Comment on above: Performed By: #### 1 4787824, 7291568, 05465248, 15722730, 5379695, 23220458, 6689405, 1014744, 6176462, 5314656 ####[facility] [address] [place] [address] Monitor Recordon 07-05-2023 Monitor Record [id number]# 1.00TIFF Normal [facility] Monitor Record [id number]# 1.00TIFF Normal [facility] Monitor Record [id number]# 1.00TIFF Normal [facility] PT & PTTon 07-05-2023 aPTT Coag (PPP) [Time] 27.2 second(s) Normal 25.1-36.5 [facility] Comment on above: Result Comment: Para [...] the same coagulation reagent and instrumentation as [facility]. Currently there are no coagulation studies available worldwide for children to 14 days, and no normal ranges. Heparin therapeutic range (represented by Anti-Factor Xa activity of 0.2 - 0.4 U/mL) corresponds to PTT of 56.6 - 109.0 sec. Performed By: #### 1 5045157, 7974779, 39091129, 53057940, 2680558, 63704836, 0036486, 3637473, 3155951, 3586834 ####[facility] [address] [place] [address] INR Coag (PPP) [Relative time] 1.01 {INR} Invalid Interpretation Code [facility] Comment on above: Result Comment: INR results are specifically intended to assess patients stabilized on long-term Anticoagulation therapy suggested INR?s ?Less Intensive Anticoagulation? 2.0 ? 3.0 Conventional Range 3.0 ? 4.5 Performed By: #### 1 6267065, 9290844, 65759278, 47390463, 3157891, 47160681, 9005950, 9963272, 8973206, 9332603 ####[facility] [address] [place] [address] PT Coag (PPP) [Time] 11.2 second(s) Normal 9.4-12.5 [facility] Comment on above: Result Comment: 15 [...] the same coagulation reagent and instrumentation as [facility]. Currently there are no coagulation studies available worldwide for children to 14 days, and no normal ranges. Performed By: #### 1 0065099, 2521462, 81723625, 07271788, 4648596, 92600209, 9391914, 1366765, 1241638, 6551193 ####[facility] [address] [place] [address] Pre-Arrival Noteon Pre-Arrival Note Pre-Arrival Summary Name: , [place] EMS Current Date: 07/05/2023 15:02:00 EST Gender: Female Date of : Age: 63 Pre-Arrival Type: EMS ETA: 07/05/2023 15:21:00 EST Primary Care Physician: Presenting Problem: HR 40s, CP, SOB, dizziness, abd. pain, nausea Pre-Arrival User: Oxana Pace RN Referring Source: [facility] Completion Date/Time: 07/05/2023 14:51:00 [facility] Emergency Department Pre-Hospital Report Form Vital Signs: Pre-Hospital Report: Treatment in Route: Response to Treatment: Misc. Issues: Normal [facility] Troponin 0 Hr.on 07-05-2023 Troponin 49.20 pg/mL Abnormal 10.10-27.10 [facility] Comment on above: Result Comment: Steven gonzalez Result Verified by Repeat Analysis Critical Result I_TnIHS:49.2 Called to and read back by: JOHNNA PERKINS at: 07/05/2023 16:37:35 by:[id number] The 95% CI (Confidence Interval) PPV (Positive Predictive Value) for myocardial infarction in females is 38 pg/mL, in males 51 pg/mL. The results should be used in conjunction with clinical conditions of myocardial infarction. (Access High Sensitivity Troponin I Instructions For Use, [employer], December 2017) Performed By: #### 1 0660190, 6249185, 90205981, 50907352, 8448101, 30263800, 9072069, 1465245, 1456229, 8869001 ####[facility] [address] [place] [address] Troponin 3 Hr.on 07-05-2023 Troponin 51.70 pg/mL Abnormal 10.10-27.10 [facility] Comment on above: Result Comment: The 95% CI (Confidence Interval) PPV (Positive Predictive Value) for myocardial infarction in females is 38 pg/mL, in males 51 pg/mL. The results should be used in conjunction with clinical conditions of myocardial infarction. (Access High Sensitivity Troponin I Instructions For Use, [employer], December 2017) Critical Result Verified by Previous Result Results Called To Johnna Perkins (ER) By And Read Back For Confirmation On 07/05/2023 19:18:03 EST. Performed By: #### 1 [id number] ####[facility] [address] [place] [address] Troponin 6 Hr.on 07-05-2023 Troponin 51.10 pg/mL Abnormal 10.10-27.10 [facility] Comment on above: Result Comment: Cri ica Result I_TnIHS:51.1 Called to and read back by: DR. JUAN MAS at: 07/05/2023 21:51:38 by:[id number] Critical Result Verified by Previous Result The 95% CI (Confidence Interval) PPV (Positive Predictive Value) for myocardial infarction in females is 38 pg/mL, in males 51 pg/mL. The results should be used in conjunction with clinical conditions of myocardial infarction. (Access High Sensitivity Troponin I Instructions For Use, [employer], December 2017) Performed By: #### 1 [id number] ####[facility] [address] [place] [address] XR Chest Single Viewon 07-05 XR Chest [...] SRAVANI Technologist: SRF Technical Comments Radiation Dose: Kar in mGy = na DAP = na Normal [facility] eGFRon 07-05-2023 eGFR 39 mL/min/1.73 m2 Low >=59 [facility] Comment on above: Order Comment: Order added by Discern Expert. Performed By: #### 1 6105696, 8546290, 23953381, 47833897, 5756206, 98685245, 2076098, 9134883, 8756518, 9270810 ####[facility] [address] [place] [address] 36on 02-20-2024 36 Unable to reach pt . Phone not in service [facility] 36 Pts phone number not in service. Spoke to pts friend Arvind and requested he have pt call us, he agrees. [facility] Documentationon 07-03-2023 Documentation [id number] Vivian Vann 1960 F Date Provider Department Center 07/03/2023 [id number], [facility] No family history on file Reason for Visit and Comments: HF inpatient satisfaction spencerrey sent. [Other] [facility] 30on 07-02-2023 30 The patient is [...] Outcome: Adequate for Discharge Flowsheets (Taken 07/02/2023 08) Free from fall injury: Assess patient frequently for physical needs Identify cognitive and physical deficits and behaviors that affect risk of falls [place] fall precautions as indicated by assessment Educate patient/family on patient safety, including physical limitations Instruct patient to call for assistance with activity based on assessment Modify environment to reduce risk of injury Consider OT/PT consult to assist with strengthening/mobilit y Problem: Discharge Planning Goal: Discharge to home or other facility with appropriate resources Outcome: Adequate for Discharge Flowsheets (Taken 07/02/2023 08) Discharge to home or other facility with [...] and prevent overall improvement and discharge Normal [facility] 30 The patient is Moderately Stable [...] and behaviors that affect risk of falls [place] fall precautions as indicated by assessment Educate [...] maintained or improved Outcome: Progressing Flowsheets (Taken 07/01/2023 2100) Care Plan - Patient's Chronic Conditions and [...] and prevent overall improvement and discharge Normal [facility] BASIC METABOLIC PANELon 02- 9-2024 Anion gap [Moles/Vol] 11 mmol/L Normal 7-20 [facility] Comment on above: Performed By: #### L [id number] #### [facility] ([facility]) [address] [place] [address] Calcium [Mass/Vol] 9.0 mg/dL Normal 8.6-10.3 [facility] Comment on above: Performed By: #### L [id number] #### [facility] [address] [place] [address] Chloride [Moles/Vol] 91 mmol/L Low 98-107 [facility] Comment on above: Performed By: #### L [id number] #### [facility] ([facility] [address] [place] [address] CO2 [Moles/Vol] 37 mmol/L High 21-31 [facility] Comment on above: Performed By: #### L [id number] #### [facility] ([facility] [address] [place] [address] Creatinine [Mass/Vol] 0.89 mg/dL Normal 0.60-1.20 [facility] Comment on above: Performed By: #### L [id number] #### [facility] ([facility]) [address] [place] [address] GLOMERULAR FILTRATION RATE ML/MIN/1.73 SQ M.PREDICTED 73.3 mL/min/1.73m*2 Normal >60.0 [facility] Comment on above: Result Comment: [facility]???s estimated glomerular filtration rate (eGFR) will [...] of individuals. Performed By: #### L [id number] #### [facility] ([facility] [address] [place] [address] Glucose [Mass/Vol] 123 mg/dL High 70-100 [facility] Comment on above: Performed By: #### L [id number] #### [facility] ([facility] [address] [place] [address] Potassium [Moles/Vol] 3.7 mmol/L Normal 3.5-5.1 [facility] Comment on above: Performed By: #### L [id number] #### [facility] ([facility]) [address] [place] [address] Sodium [Moles/Vol] 135 mmol/L Low 136-145 [facility] Comment on above: Performed By: #### L [id number] #### [facility] ([facility]) [address] [place] [address] Urea nitrogen [Mass/Vol] 29 mg/dL High 7-25 [facility] Comment on above: Performed By: #### L [id number] #### [facility] ([facility]) [address] [place] [address] UREA NITROGEN/CREATININE (MASS RATIO) IN SER/PLAS 32.6 Normal [facility] Comment on above: Performed By: #### L [id number] #### [facility] ([facility]) [address] [place] [address] CBCon 07-02-2023 Erythrocyte distribution width (RBC) [Ratio] 15.8 % High 11.5-15.0 [facility] Comment on above: Performed By: #### L [id number] ####[facility] ([facility])[address] [place] [address] ERYTHROCYTE MEAN CORPUSCULAR HEMOGLOBIN CONCENTRATION (G/DL) BY AUTOMATED 31.8 g/dL Low 32.0-35.0 [facility] Comment on above: Performed By: #### L [id number] ####[facility] ([facility] [place] [address] Hematocrit (Bld) [Volume fraction] 44.0 % Normal 36.0-48.0 [facility] Comment on above: Performed By: #### L [id number] ####[facility] ([facility])[address] [place] [address] Hemoglobin (Bld) [Mass/Vol] 14.0 g/dL Normal 12.0-15.0 [facility] Comment on above: Performed By: #### L [id number] ####[facility] ([facility])[address] [place], [place] [address] MCH (RBC) [Entitic mass] 27.9 pg Normal 27.0-33.0 [facility] Comment on above: Performed By: #### L [id number] ####[facility] ([facility])[address] [place] [address] MCV (RBC) [Entitic vol] 87.8 fL Normal 82.0-98.0 [facility] Comment on above: Performed By: #### L [id number] ####[facility] ([facility])[address] [place] [address] PLATELETS (10*3/UL) IN BLOOD AUTOMATED COUNT 285 10*3/uL Normal 150-400 [facility] Comment on above: Performed By: #### L [id number] ####[facility] ([facility])[address] [place] [address] RBC (Bld) [#/Vol] 5.01 10*6/uL High 3.80-5.00 [facility] Comment on above: Performed By: #### L [id number] ####[facility] ([facility])[address] [place], [place] [address] WBC (Bld) [#/Vol] 8.89 10*3/uL Normal 4.00-10.60 [facility] Comment on above: Performed By: #### L [id number] ####[facility] ([facility])[address] [place], [place] [address] DSon 07-02-2023 DS Admit Date 06/29/2023 Discharge Date 07/02/2023 Discharge Diagnosis NSTEMI Acute on chronic HFpEF NYHA class 2 CAD DMII noninsulin dependent Chronic pain Anxiety GERD Tobacco abuse Discharge Disposition Home-Health Care [facility] (06) Discharge Medications Your medication list START [...] medications were sent to [facility] [address] [place] [address] [place] [address], [facility] [address] furosemide 40 mg tablet spironolactone 25 mg tablet Activity Normal activity as tolerated Diet Continue on the same type of diet and foods as you were eating before your admission. Drink plenty of water. Allergies Hay fever and allergy relief and House dust Hospital Course History of Present Illness Vivian Vann is an 63 y.o. female who came from [facility] as direct asmission for NSTEMI. Patient presented 06/28/23 to [facility] for c/o chest pain and lower back pain. Patient troponin level found to be 557 and EKG showed new ischemia and inverted T-waves, NSTEMI. She was given nitroglycerin and started on heparin drip. Patient is 1 year s/p stent placement at [facility] on plavix and aspirin. Dr. Yoo with cardiology agreed to patient transfer here to [facility] with hospital medicine admitting and cardiology consult [...] Low back pending. Laboratory workup here at [facility] shows CBC unremarkable w/ exception of NCHC [...] General: Abdo (more content not included)... Normal [facility] POCT GLUCOSE METER UNSOLICIT ED RESULTSon 07-02-2023 Glucose [Mass/Vol] 117 mg/dL High 70-105 [facility] Comment on above: Order Comment: Waive d Testing in the ED is performed under the ED CLIA certificate #[id number]. Result Comment: [email or web address] Performed By: #### L [id number] #### [facility] ([facility]) [address] [place] [address] Glucose [Mass/Vol] 110 mg/dL High 70-105 [facility] Comment on above: Order Comment: Waive d Testing in the ED is performed under the ED CLIA certificate #[id number]. Result Comment: [email or web address] Performed By: #### L [id number] ####[facility] (AKER)[address] [place] [address] 30on 07-01-2023 30 The patient is Moderately Stable - Low risk of patient condition declining or worsening The patient's goals for the shift include comfort The clinical goals for the shift include stable vs Problem: Pain - Adult Goal: Verbalizes/displays adequate comfort level or baseline comfort level Outcome: Progressing Flowsheets (Taken 07/01/2023 0710) Verbalizes/displays adequate comfort level or baseline comfort [...] and behaviors that affect risk of falls [place] fall precautions as indicated by assessment Educate patient/family on patient safety, including physical limitations Instruct patient to call for assistance with activity based on assessment Modify environment to reduce risk of injury Consider OT/PT consult to assist with strengthening/mobilit y Problem: Discharge Planning Goal: Discharge to home or other facility with appropriate resources Outcome: Progressing Flowsheets (Taken 07/01/2023 0710) Discharge to home or other facility with [...] maintained or improved Outcome: Progressing Flowsheets (Taken 07/01/2023 0710) Care Plan - Patient's Chronic Conditions and [...] and prevent overall improvement and discharge Normal [facility] BASIC METABOLIC PANELon 06-14 Anion gap [Moles/Vol] 10 mmol/L Normal 7-20 [facility] Comment on above: Performed By: #### L [id number] #### [facility] ([facility]) [address] [place] [address] Calcium [Mass/Vol] 8.3 mg/dL Low 8.6-10.3 [facility] Comment on above: Performed By: #### L [id number] #### [facility] ([facility]) [address] [place] [address] Chloride [Moles/Vol] 98 mmol/L Normal 98-107 [facility] Comment on above: Performed By: #### L [id number] #### [facility] ([facility]) [address] [place] [address] CO2 [Moles/Vol] 35 mmol/L High 21-31 [facility] Comment on above: Performed By: #### L [id number] #### [facility] ([facility]) [address] [place] [address] Creatinine [Mass/Vol] 1.08 mg/dL Normal 0.60-1.20 [facility] Comment on above: Performed By: #### L [id number] #### [facility] ([facility]) [address] [place] [address] GLOMERULAR FILTRATION RATE ML/MIN/1.73 SQ M.PREDICTED 58.1 mL/min/1.73m*2 Low >60.0 [facility] Comment on above: Result Comment: [facility]???s estimated glomerular filtration rate (eGFR) will [...] individuals. Performed By: #### L [id number] #### [facility] ([facility]) [address] [place] [address] Glucose [Mass/Vol] 116 mg/dL High 70-100 [facility] Comment on above: Performed By: #### L [id number] #### [facility] ([facility]) [address] [place] [address] Potassium [Moles/Vol] 3.7 mmol/L Normal 3.5-5.1 [facility] Comment on above: Performed By: #### L [id number] #### [facility] ([facility]) [address] [place] [address] Sodium [Moles/Vol] 139 mmol/L Normal 136-145 [facility] Comment on above: Performed By: #### L [id number] #### [facility] ([facility]) [address] [place] [address] Urea nitrogen [Mass/Vol] 27 mg/dL High 7-25 [facility] Comment on above: Performed By: #### L [id number] #### [facility] ([facility]) [address] [place] [address] UREA NITROGEN/CREATININE (MASS RATIO) IN SER/PLAS 25.0 Normal [facility] Comment on above: Performed By: #### L [id number] #### [facility] ([facility]) [address] [place] [address] POCT GLUCOSE METER UNSOLICIT ED RESULTSon 07-01-2023 Glucose [Mass/Vol] 132 mg/dL High 70-105 [facility] Comment on above: Order Comment: Waive d Testing in the ED is performed under the ED CLIA certificate #[id number]. Result Comment: magda weir Performed By: #### L [id number] ####[facility] ([facility])[address] [place] [address] Glucose [Mass/Vol] 106 mg/dL High 70-105 [facility] Comment on above: Order Comment: Waive d Testing in the ED is performed under the ED CLIA certificate #[id number]. Result Comment: wwar rad Performed By: #### L [id number] #### [facility] ([facility]) [address] [place] [address] Glucose [Mass/Vol] 121 mg/dL High 70-105 [facility] Comment on above: Order Comment: Waive d Testing in the ED is performed under the ED CLIA certificate #[id number]. Result Comment: wwar rad Performed By: #### L [id number] ####[facility] ([facility])[address] [place] [address] Glucose [Mass/Vol] 105 mg/dL Normal 70-105 [facility] Comment on above: Order Comment: Waive d Testing in the ED is performed under the ED CLIA certificate #[id number]. Result Comment: wwar rad Performed By: #### L [id number] ####[facility] ([facility])[address] [place] [address] 30on 06-30-2023 30 The patient is Moderately [...] and maintained or improved Outcome: Progressing Normal [facility] ANTI-XA (HEPARIN LEVEL)on HEPARIN UNFRACTIONATED (U/ML) IN PPP BY CHROMOGENIC METHOD <0.10 Invalid Interpretation Code 0.3-0.7 [facility] Comment on above: Order Comment: Check anti-Xa level every 6 hours while on heparin infusion, or per protocol. Result Comment: Lyndon roxaban and Apixaban will interfere with the anti Xa assay used to monitor UFH and LMWH. Performed By: #### L [id number] #### [facility] ([facility]) [address] [place] [address] CBCon 06-30-2023 Erythrocyte distribution width (RBC) [Ratio] 15.3 % High 11.5-15.0 [facility] Comment on above: Performed By: #### L [id number] ####[facility] ([facility])[address] [place] [address] ERYTHROCYTE MEAN CORPUSCULAR HEMOGLOBIN CONCENTRATION (G/DL) BY AUTOMATED 32.2 g/dL Normal 32.0-35.0 [facility] Comment on above: Performed By: #### L [id number] ####[facility] ([facility])[address] [place] [address] Hematocrit (Bld) [Volume fraction] 35.7 % Low 36.0-48.0 [facility] Comment on above: Performed By: #### L [id number] ####[facility] ([facility])[address] [place] [address] Hemoglobin (Bld) [Mass/Vol] 11.5 g/dL Low 12.0-15.0 [facility] Comment on above: Performed By: #### L [id number] ####[facility] [place] [address] MCH (RBC) [Entitic mass] 28.1 pg Normal 27.0-33.0 [facility] Comment on above: Performed By: #### L [id number] ####[facility] ([facility])[address] [place] [address] MCV (RBC) [Entitic vol] 87.3 fL Normal 82.0-98.0 [facility] Comment on above: Performed By: #### L [id number] ####[facility] ([facility] [place] [address] PLATELETS (10*3/UL) IN BLOOD AUTOMATED COUNT 219 10*3/uL Normal 150-400 [facility] Comment on above: Performed By: #### L [id number] ####[facility] ([facility])[address] [place] [address] RBC (Bld) [#/Vol] 4.09 10*6/uL Normal 3.80-5.00 [facility] Comment on above: Performed By: #### L [id number] ####[facility] ([facility])[address] [place] [address] WBC (Bld) [#/Vol] 10.22 10*3/uL Normal 4.00-10.60 [facility] Comment on above: Performed By: #### L [id number] ####[facility] ([facility]ER)[address] [place] [address] CONSULTon 06-30-2023 CONSULT Clinical Nutrition Assessment Name: [...] with questions and contact the dietitian via [employer] chat 8A-4P Sunday-Sunday. Or call the dietitian's office at extension [phone]. For weekends/holidays, the dietitian's can be reached by paging [phone] from 9A-3P. Unable to be reached via [employer] (E[employer]) chat on Sunday & s.) Normal [facility] HEMOGLOBIN A1Con 06-30-2023 Glucose [Mass/Vol] 143 mg/dL Normal [facility] Comment on above: Performed By: #### L [id number] #### [facility] ([facility]) [address] [place] [address] HbA1c (Bld) [Mass fraction] 6.6 % High 4.0-6.0 [facility] Comment on above: Performed By: #### L [id number] #### [facility] ([facility]) [address] [place] [address] LACTIC ACID WITH 4 HOUR REFL EXon 06-30-2023 LACTATE (MMOL/L) IN SER/PLAS 1.9 mmol/L Normal 0.5-2.2 [facility] Comment on above: Performed By: #### L [id number] #### [facility] ([facility]) [address] [place] [address] POCT GLUCOSE METER UNSOLICIT ED RESULTSon 06-30-2023 Glucose [Mass/Vol] 156 mg/dL High 70-105 [facility] Comment on above: Order Comment: Waive d Testing in the ED is performed under the ED CLIA certificate #[id number]. Result Comment: [email or web address] Performed By: #### L [id number] #### [facility] ([facility]) [address] [place] [address] Glucose [Mass/Vol] 149 mg/dL High 70-105 [facility] Comment on above: Order Comment: Waive d Testing in the ED is performed under the ED CLIA certificate #[id number]. Result Comment: [email or web address] Performed By: #### L [id number] #### [facility] ([facility]) [address] [place] [address] Glucose [Mass/Vol] 181 mg/dL High 70-105 [facility] Comment on above: Order Comment: Waive d Testing in the ED is performed under the ED CLIA certificate #[id number]. Result Comment: [email or web address] Performed By: #### L [id number] #### [facility] ([facility]) [address] [place] [address] 30on 06-29-2023 30 The patient is Moderately [...] and maintained or improved Outcome: Progressing Normal [facility] 30 The patient is Moderately Stable - Low risk of patient condition declining or worsening The patient's goals for the shift include no chest pain The clinical goals for the shift include vss Over the shift, the patient did not make progress toward the following goals. Barriers to progression include . Recommendations to address these barriers include . Normal [facility] APTTon 06-29-2023 ACTIVATED PARTIAL THROMBOPLASTIN TIME IN PPP BY COAGULATION ASSAY 67.3 Seconds High 25.0-35.0 [facility] Comment on above: Result Comment: Clin ical significance of the APTT is questionable in the presence of heparin. Performed By: #### L [id number] #### [facility] ([facility]) [address] [place] [address] B-TYPE NATRIURETIC PEPTIDEon 06-29-2023 Natriuretic peptide B (Bld) [Mass/Vol] 1683 pg/mL High 0-100 [facility] Comment on above: Performed By: #### L [id number] #### [facility] ([facility]) [address] [place] [address] BASIC METABOLIC PANELon 06-14 Anion gap [Moles/Vol] 14 mmol/L Normal 7-20 [facility] Comment on above: Performed By: #### L [id number] #### [facility] ([facility]) [address] [place] [address] Calcium [Mass/Vol] 8.2 mg/dL Low 8.6-10.3 [facility] Comment on above: Performed By: #### L [id number] #### [facility] ([facility] [address] [place] [address] Chloride [Moles/Vol] 102 mmol/L Normal 98-107 [facility] Comment on above: Performed By: #### L [id number] #### [facility] ([facility]) [address] [place] [address] CO2 [Moles/Vol] 25 mmol/L Normal 21-31 [facility] Comment on above: Performed By: #### L [id number] #### [facility] ([facility]) [address] [place] [address] Creatinine [Mass/Vol] 1.04 mg/dL Normal 0.60-1.20 [facility] Comment on above: Performed By: #### L [id number] #### [facility] ([facility]) [address] [place] [address] GLOMERULAR FILTRATION RATE ML/MIN/1.73 SQ M.PREDICTED 60.8 mL/min/1.73m*2 Normal >60.0 [facility] Comment on above: Result Comment: [facility]???s estimated glomerular filtration rate (eGFR) will [...] individuals. Performed By: #### L [id number] #### [facility] ([facility] [address] [place] [address] Glucose [Mass/Vol] 268 mg/dL High 70-100 [facility] Comment on above: Performed By: #### L [id number] #### [facility] ([facility] [address] [place] [address] Potassium [Moles/Vol] 4.1 mmol/L Normal 3.5-5.1 [facility] Comment on above: Performed By: #### L [id number] #### [facility] ([facility]) [address] [place] [address] Sodium [Moles/Vol] 137 mmol/L Normal 136-145 [facility] Comment on above: Performed By: #### L [id number] #### [facility] ([facility] [address] [place] [address] Urea nitrogen [Mass/Vol] 14 mg/dL Normal 7-25 [facility] Comment on above: Performed By: #### L [id number] #### [facility] ([facility] [address] [place] [address] UREA NITROGEN/CREATININE (MASS RATIO) IN SER/PLAS 13.5 Normal [facility] Comment on above: Performed By: #### L [id number] #### [facility] ([facility] [address] [place] [address] CBCon 06-29-2023 Erythrocyte distribution width (RBC) [Ratio] 15.3 % High 11.5-15.0 [facility] Comment on above: Performed By: #### L [id number] #### [facility] ([facility] [address] [place] [address] ERYTHROCYTE MEAN CORPUSCULAR HEMOGLOBIN CONCENTRATION (G/DL) BY AUTOMATED 31.8 g/dL Low 32.0-35.0 [facility] Comment on above: Performed By: #### L [id number] #### [facility] ([facility] [address] [place] [address] Hematocrit (Bld) [Volume fraction] 39.3 % Normal 36.0-48.0 [facility] Comment on above: Performed By: #### L [id number] #### [facility] ([facility]) [address] [place] [address] Hemoglobin (Bld) [Mass/Vol] 12.5 g/dL Normal 12.0-15.0 [facility] Comment on above: Performed By: #### L [id number] #### [facility] ([facility]) [address] [place] [address] MCH (RBC) [Entitic mass] 28.4 pg Normal 27.0-33.0 [facility] Comment on above: Performed By: #### L [id number] #### [facility] ([facility]) [address] [place] [address] MCV (RBC) [Entitic vol] 89.3 fL Normal 82.0-98.0 [facility] Comment on above: Performed By: #### L [id number] #### [facility] ([facility]) [address] [place] [address] PLATELETS (10*3/UL) IN BLOOD AUTOMATED COUNT 218 10*3/uL Normal 150-400 [facility] Comment on above: Performed By: #### L [id number] #### [facility] ([facility]) [address] [place] [address] RBC (Bld) [#/Vol] 4.40 10*6/uL Normal 3.80-5.00 [facility] Comment on above: Performed By: #### L [id number] #### [facility] ([facility]) [address] [place] [address] WBC (Bld) [#/Vol] 9.91 10*3/uL Normal 4.00-10.60 [facility] Comment on above: Performed By: #### L [id number] #### [facility] ([facility]) [address] [place] [address] COMPREHENSIVE METABOLIC PANE Pollo 06-29-2023 Albumin [Mass/Vol] 3.8 g/dL Normal 3.5-5.7 [facility] Comment on above: Performed By: #### L [id number] #### [facility] ([facility] [address] [place] [address] ALP [Catalytic activity/Vol] 77 U/L Normal 34-104 [facility] Comment on above: Performed By: #### L [id number] #### [facility] ([facility]) [address] [place] [address] ALT [Catalytic activity/Vol] 23 U/L Normal 7-52 [facility] Comment on above: Performed By: #### L [id number] #### [facility] ([facility]) [address] [place] [address] Anion gap [Moles/Vol] 10 mmol/L Normal 7-20 [facility] Comment on above: Performed By: #### L [id number] #### [facility] ([facility]) [address] [place] [address] AST [Catalytic activity/Vol] 23 U/L Normal 13-39 [facility] Comment on above: Performed By: #### L [id number] #### [facility] ([facility]) [address] [place] [address] Bilirubin [Mass/Vol] 0.4 mg/dL Normal 0.3-1.0 [facility] Comment on above: Performed By: #### L [id number] #### [facility] ([facility]) [address] [place] [address] Calcium [Mass/Vol] 8.6 mg/dL Normal 8.6-10.3 [facility] Comment on above: Performed By: #### L [id number] #### [facility] ([facility]) [address] [place] [address] Chloride [Moles/Vol] 107 mmol/L Normal 98-107 [facility] Comment on above: Performed By: #### L [id number] #### [facility] ([facility]) [address] [place] [address] CO2 [Moles/Vol] 27 mmol/L Normal 21-31 [facility] Comment on above: Performed By: #### L [id number] #### [facility] ([facility]) [address] [place] [address] Creatinine [Mass/Vol] 1.01 mg/dL Normal 0.60-1.20 [facility] Comment on above: Performed By: #### L [id number] #### [facility] ([facility]) [address] [place] [address] GLOMERULAR FILTRATION RATE ML/MIN/1.73 SQ M.PREDICTED 62.9 mL/min/1.73m*2 Normal >60.0 [facility] Comment on above: Result Comment: [facility]???s estimated glomerular filtration rate (eGFR) will [...] of individuals. Performed By: #### L [id number] #### [facility] ([facility]) [address] [place] [address] Glucose [Mass/Vol] 148 mg/dL High 70-100 [facility] Comment on above: Performed By: #### L [id number] #### [facility] ([facility]) [address] [place] [address] Potassium [Moles/Vol] 4.2 mmol/L Normal 3.5-5.1 [facility] Comment on above: Performed By: #### L [id number] #### [facility] ([facility]) [address] [place] [address] Protein [Mass/Vol] 6.3 g/dL Normal 6.0-8.3 [facility] Comment on above: Performed By: #### L [id number] #### [facility] ([facility]) [address] [place] [address] Sodium [Moles/Vol] 140 mmol/L Normal 136-145 [facility] Comment on above: Performed By: #### L [id number] #### [facility] ([facility]) [address] [facility] [place] [address] Urea nitrogen [Mass/Vol] 10 mg/dL Normal 7-25 [facility] Comment on above: Performed By: #### L [id number] #### [facility] ([facility]) [address] [facility] [place] [address] UREA NITROGEN/CREATININE (MASS RATIO) IN SER/PLAS 9.9 Normal [facility] Comment on above: Performed By: #### L [id number] #### [facility] ([facility]) [address] [facility] [place] [address] CONSULTon 06-29-2023 CONSULT - Attestation signed by [...] tobacco use comes as a transfer from [facility] due to suspected NSTEMI. Patient was [...] Her troponins were elevated at 557 at [facility] and recheck here shows 0.07. Patient [...] Value Ventricular Rate 61 Atrial Rate 61 NM Interval 150 (more content not included)... Normal [facility] HPon 06-29-2023 HP Interval Pre-Procedural H&P Reason for Consult: NSTEMI HPI: Vivian Vann is a 63 y.o. female with PMH of CAD s/p PCI to LAD (October 2021), HTN, HLD, COPD, tobacco use comes as a transfer from [facility] due to suspected NSTEMI. Patient was [...] Her troponins were elevated at 557 at [facility] and recheck here shows 0.07. Patient [...] Value Ventricular Rate 61 Atrial Rate 61 NM Interval 150 QRS DURATION 88 QT Interval 476 QTC CALCULATION(BAZETT) 479 P Shell 68 R-Shell 25 T Wave Shell 128 Impression Normal sinus rhythm Right atrial [...] deformity. End (more content not included)... Normal [facility] LACTIC ACID WITH 4 HOUR REFL EXon 06-29-2023 LACTATE (MMOL/L) IN SER/PLAS 3.6 mmol/L Critically high 0.5-2.2 [facility] Comment on above: Result Comment: M-NM EVIOUS CRITICAL RESULT Previous result verified on 06/29/20231808 on specimen/case [id number] called with component Lactate blood venous for procedure Lactic acid with 4 hour reflex with value 2.7 mmol/L. Performed By: #### L [id number] #### [facility] ([facility]) [address] [place] [address] LACTATE (MMOL/L) IN SER/PLAS 2.7 mmol/L Critically high 0.5-2.2 [facility] Comment on above: Performed By: #### L [id number] #### [facility] ([facility]) [address] [place] [address] LACTATE (MMOL/L) IN SER/PLAS 2.5 mmol/L High 0.5-2.2 [facility] Comment on above: Performed By: #### L [id number] ####[facility] ([facility])[address] [place] [address] MAGNESIUMon 06-29-2023 Magnesium [Mass/Vol] 2.1 mg/dL Normal 1.9-2.7 [facility] Comment on above: Performed By: #### L [id number] ####[facility] ([facility])[address] [facility] [place] [address] Magnesium [Mass/Vol] 2.2 mg/dL Normal 1.9-2.7 [facility] Comment on above: Performed By: #### L [id number] #### [facility] ([facility]AKER) [address] [place] [address] Magnesium [Mass/Vol] 1.7 mg/dL Low 1.9-2.7 [facility] Comment on above: Performed By: #### L [id number] #### [facility] ([facility]) [address] [facility] [address] NURSNOTEon 06-29-2023 NURSNOTE Notified [place] Hospitalist critical lactate 2.7 no orders received said she would recheck lactate in 4 hrs Normal [facility] PHOSPHORUSon 06-29-2023 Magnesium [Mass/Vol] 3.5 mg/dL Normal 2.5-5.0 [facility] Comment on above: Performed By: #### L [id number] #### [facility] ([facility]) [address] [place] [address] PROTIME-INRon 06-29-2023 INR IN PPP BY COAGULATION ASSAY 0.98 Normal 0.90-1.10 [facility] Comment on above: Result Comment: ACCC [...] CHEST 1995;[id number]. Performed By: #### L [id number] ####[facility] ([facility])[address] [facility] [place] [address] PROTHROMBIN TIME (PT) IN PPP BY COAGULATION ASSAY 13.0 Seconds Normal 12.3-14.8 [facility] Comment on above: Performed By: #### L [id number] ####[facility] ([facility])[address] [facility] [place] [address] TROPONIN Ion 06-29-2023 Troponin I.cardiac [Mass/Vol] 0.06 ng/mL High 0.00-0.04 [facility] Comment on above: Performed By: #### L [id number] #### [facility] ([facility]) [address] [place] [address] Troponin I.cardiac [Mass/Vol] 0.07 ng/mL High 0.00-0.04 [facility] Comment on above: Performed By: #### L [id number] ####[facility] ([facility])[address] [place] [address] Troponin I.cardiac [Mass/Vol] 0.07 ng/mL High 0.00-0.04 [facility] Comment on above: Performed By: #### L [id number] #### [facility] ([facility]) [address] [place] [address] CBC W MANUAL DIFFon 08-25-19 23 ANISOCYTOSIS 1+ Normal [facility] Comment on above: Performed By: #### Isabell PONCE ####[facility] [address] [address]Dr. Yilan Yañez ATYPICAL LYMPH # Normal [facility] Comment on above: Performed By: #### Isabell PONCE ####[facility] [address] [id number]. Yilan Yañez ATYPICAL LYMPH % Normal [facility] Comment on above: Performed By: #### Isabell PONCE ####[facility] [address] [place] [address]Dr. Yilan Yañez BAND # 0.2 103/ul Normal 0.0-0.3 The [facility] Comment on above: Performed By: #### Isabell PONCE ####[facility] Roouhbikjr[address] [place] [address]Dr. Nahed Yañez BAND % 1 % Normal 0-5 The [facility] Comment on above: Performed By: #### C BCISAIAH ####[facility] Ehtuqcrqkk15[address] [place] [address]Dr. Nahed Yañez BASOM # 0.00 103/ul Normal 0.00-0.10 The [facility] Comment on above: Performed By: #### C BCISAIAH ####[facility] Cgbiampgbp36[address] [place] [address]Dr. Nahed Yañez BASOM % 0.0 % Critically low 0.2-2.0 The [facility] Comment on above: Performed By: #### C BCISAIAH ####[facility] Zvqcswtxvw28[address] [place] [address]Dr. Nahed Yañez BLAST # Normal The [facility] Comment on above: Performed By: #### C BCISAIAH ####[facility] Gxsbcxxxai8[address] [place] [address]Dr. Nahed Yañez BLAST % Normal The [facility] Comment on above: Performed By: #### C BCISAIAH ####[facility] Ebdugjikov[address] [place] [address]Dr. Nahed Yañez CORRECTED WBC Normal 4.0-11.0 The [facility] Comment on above: Performed By: #### C BCISAIAH ####[facility] Jxhnoryfwu8[address] [place] [address]Dr. Nahed Yañez EOS # 0.00 103/ul Normal 0.00-0.70 The [facility] Comment on above: Performed By: #### C BCISAIAH ####[facility] Wesagoxiib[address] [place] [address]Dr. Nahed Yañez EOS% 0.0 % Critically low 0.9-7.0 The [facility] Comment on above: Performed By: #### C BCISAIAH ####[facility] Gndmsdriky5[address] [place] [address]Dr. Nahed Yañez HCT 33.9 % Critically low 36.0-48.0 The [facility] Comment on above: Performed By: #### C ROSARIO ####[facility] Aiihzbdlmj1648 [place], [place] [address]Fc. Nahed Yañez HGB 10.8 g/dl Critically low 12.0-16.0 The [facility] Comment on above: Performed By: #### C ROSARIO ####[facility] Ckkssknouc6702 [place], [place] [address]Vi. Nahed Yañez HYPOCHROMASIA SLIGHT Normal The [facility] Comment on above: Performed By: #### C ROSARIO ####[facility] Waoodhotjp9888 [place], [place] [address]Vo. Nahed Yañez LYMPHM # 2.59 103/ul Normal 1.20-3.80 The [facility] Comment on above: Performed By: #### C ROSARIO ####[facility] Svkmimjqqq50[address] [place] [address]Dr. Nahed Yañez LYMPHM% 16.0 % Critically low 20.5-60.0 The [facility] Comment on above: Performed By: #### Isabell PONCE ####[facility] Ixeeeyakca4544 [place], [place] [address]La. Nahed Yañez MCH 28.5 pg Normal 26.7-34.0 The [facility] Comment on above: Performed By: #### C ROSARIO ####[facility] Vuvzqznawb9[address] [place] [address]Dr. Nahed Yañez MCHC 31.9 g/dl Normal 29.9-35.2 The [facility] Comment on above: Performed By: #### Isabell PONCE ####[facility] Vzgfhkailn1289 [place], [place] [address]Yh. Nahed Yñaez MCV 89.4 fL Normal 81.0-99.0 The [facility] Comment on above: Performed By: #### C ROSARIO ####[facility] Inmjhzszca[address] [place] [address]Dr. Nahed Yañez METAMYELOCYTE # Normal The [facility] Comment on above: Performed By: #### Isabell PONCE ####[facility] Qxbggbwqpt8897 [place] [address]Dr. Nahed Yañez METAMYELOCYTE % Normal The [facility] Comment on above: Performed By: #### C ROSARIO ####[facility] Pfuytiybqk2296 [place] [address]Dr. Nahed Yañez MONOM# 1.30 103/ul Critically high 0.30-0.80 [facility] Comment on above: Performed By: #### C ROSARIO ####[facility] Horxdsbluk9682 [place] [address]Dr. Nahed Yañez MONOM% 8.0 % Normal 1.7-12.0 [facility] Comment on above: Performed By: #### C ROSARIO ####[facility] Pwpnhqshqg2947 [place] [address]Dr. Nahed Yañez MPV 9.8 fL Normal 9.5-13.5 [facility] Comment on above: Performed By: #### C ROSARIO ####[facility] Ttcftmvpcm[address] [place], [place] [address]Dr. Nahed Yañez MYELOCYTE # Normal The [facility] Comment on above: Performed By: #### C ROSARIO ####[facility] Mxvaquerze[address] [place], [place] [address]Dr. Nahed Yañez MYELOCYTE % Normal The [facility] Comment on above: Performed By: #### C ROSARIO ####[facility] Trcxfoctcd[address] [place], [place] [address]Dr. Nahed Yañez NRBC Normal The [facility] Comment on above: Performed By: #### C ROSARIO ####[facility] Misahicbrm[address] [place] [address]Dr. Nahed Yañez PLT 302 103/ul Normal 150-450 The [facility] Comment on above: Performed By: #### C ROSARIO ####[facility] Sfmhqwpoho[address] [place], [place] [address]Dr. Nahed Yañez RBC 3.79 106/ul Critically low 4.20-5.40 [facility] Comment on above: Performed By: #### C ROSARIO ####[facility] Jybxevcclu9[address] [place], [place] [address]Dr. Nahed Otilio RDW 15.3 % Critically high 11.0-15.0 [facility] Comment on above: Performed By: #### C BCMAN ####[facility] Hfpevreuvi64[address] [place] [address]Dr. Nahed Yañez SEG # 12.15 103/ul Critically high 1.40-6.50 [facility] Comment on above: Performed By: #### C BCMAN ####[facility] Ojexcuclxc3632 [place] [address]Dr. Nahed Yañez SEG % 75.0 % Normal 43.0-75.0 [facility] Comment on above: Performed By: #### C BCMAN ####[facility] Bkkxutgbdr2980 [place] [address]Dr. Nahed Yañez WBC 16.2 103/ul Critically high 4.0-11.0 [facility] Comment on above: Performed By: #### C ROSARIO ####[facility] Nlfkoukmlz4935 [place] [address]Dr. Rosemarieashley Yañez POINT OF CARE GLUCOSEon 08-12 Glucose [Mass/Vol] 221 mg/dL Critically high 74-106 [facility] Comment on above: Performed By: #### P OCGLUC ####[facility] Jccdxdvhwj95[address] [place] [address]Dr. Rosemarieashley Yañez PROF 14(COMP METB)on 023 Albumin [Mass/Vol] 2.2 g/dL Critically low 3.4-5.0 [facility] Comment on above: Performed By: #### C RENZO, JUDY ####[facility] Zgzivdonax5675 [place] [address]Dr. Rosemarieashley Yañez Albumin/Globulin [Mass ratio] 0.6 {ratio} Normal [facility] Comment on above: Performed By: #### C RENZO, JUDY ####[facility] Nmahviradh3[address] [place] [address]Dr. Rosemarieashley Yañez ALP [Catalytic activity/Vol] 87 U/L Normal 46-116 [facility] Comment on above: Performed By: #### C RENZO, JUDY ####[facility] Zdjzrhbicb7065 [place] [address]Dr. Nahed Yañez ALT [Catalytic activity/Vol] 17 U/L Normal 14-59 The [facility] Comment on above: Performed By: #### C RENZO, JUDY ####[facility] Mzpdbtktwi[address] [place], [place] [address]Dr. Nahed Yañez Anion gap [Moles/Vol] 9.4 mmol/L Normal [facility] Comment on above: Performed By: #### C RENZO, JUDY ####[facility] Ebxjfyuzyy[address] [place], [place] [address]Dr. Nahed Yañez AST [Catalytic activity/Vol] 13 U/L Critically low 15-37 The [facility] Comment on above: Performed By: #### C RENZO, JUDY ####[facility] Vtuujiladg[address] [place], [place] [address]Dr. Nahed Yañez Bilirubin [Mass/Vol] 0.2 mg/dL Normal 0.2-1.0 [facility] Comment on above: Performed By: #### C RENZO, JUDY ####[facility] Leuhzprhdj[address] [place], [place] [address]Dr. Nahed Yañez Calcium [Mass/Vol] 9.1 mg/dL Normal 8.5-10.1 [facility] Comment on above: Performed By: #### C RENZO, JUDY ####[facility] Zsiryilaay[address] [place], [place] [address]Dr. Nahed Yañez Chloride [Moles/Vol] 103 mmol/L Normal 98-107 The [facility] Comment on above: Performed By: #### C RENZO, JUDY ####[facility] Ntyhavzqct[address] [place], [place] [address]Dr. Nahed Yañez CO2 [Moles/Vol] 29.1 mmol/L Normal 21.0-32.0 The [facility] Comment on above: Performed By: #### C RENZO, JUDY ####[facility] Ubdtxshgzm[address] [place], [place] [address]Dr. Nahed Yañez Creatinine [Mass/Vol] 1.05 mg/dL Critically high 0.55-1.02 [facility] Comment on above: Performed By: #### C RENZO, JUDY ####[facility] Nkxdpgjkqr6954 [place] [address]Dr. Nahed Yañez EGFR-AF UGANDAN >60 Normal >=60 [facility] Comment on above: Performed By: #### C MP, JUDY ####[facility] Yfzkeyhsxk1318 [place] [address]Dr. Nahed Yañez EGFR-NON AF UGANDAN 53 mL/min/1.73m2 Critically low >=60 [facility] Comment on above: Performed By: #### C RENZO, JUDY ####[facility] Tfbutijypw6386 [place] [address]Dr. Nahed Yañez Globulin (S) [Mass/Vol] 3.5 g/dL Normal [facility] Comment on above: Performed By: #### C RENZO, JUDY ####[facility] Zffasnarua4054 [place] [address]Dr. Nahed Yañez Glucose [Mass/Vol] 121 mg/dL Critically high 74-106 [facility] Comment on above: Performed By: #### C RENZO, JUDY ####[facility] Xpqwnmevvz7825 [place] [address]Dr. Nahed Yañez Potassium [Moles/Vol] 4.5 mmol/L Normal 3.5-5.1 [facility] Comment on above: Performed By: #### C RENZO, JUDY ####[facility] Zivrpcfwvu1768 [place] [address]Dr. Nahed Yañez Protein [Mass/Vol] 5.7 g/dL Critically low 6.4-8.2 [facility] Comment on above: Performed By: #### C RENZO, JUDY ####[facility] Arhqfcforh9774 [place] [address]Dr. Nahed Yañez Sodium [Moles/Vol] 137 mmol/L Normal 136-145 [facility] Comment on above: Performed By: #### C RENZO, JUDY ####[facility] Rgimkdqptu1044 [place] [address]Dr. Nahed Yañez Urea nitrogen [Mass/Vol] 24.0 mg/dL Critically high 7.0-18.0 The [facility] Comment on above: Performed By: #### C RENZO, JUDY ####[facility] Ngtegldppq[address] [place], [place] [address]Dr. Nahed Yañez Urea nitrogen/Creatinine [Mass ratio] 22.9 mg/mg Normal The [facility] Comment on above: Performed By: #### C RENZO, JUDY ####[facility] Eoqunriijr2[address] [place] [address]Dr. Nahed Otilio THEOPHYLLINEon 08-24-2022 THEOPHYLLINE 18.2 ug/mL Normal 10.0-20.0 The [facility] Comment on above: Performed By: #### C RENZO, JUDY ####[facility] Lrhaonagxp[address] [place], [place] [address]Dr. Nahed Otilio CBC W MANUAL DIFFon 08-24-19 ATYPICAL LYMPH # 0.20 103/ul Normal The [facility] Comment on above: Performed By: #### C ROSARIO ####[facility] Btemrwfljf[address] [place], [place] [address]Dr. Nahed Otilio ATYPICAL LYMPH % 1 % Normal The [facility] Comment on above: Performed By: #### C ROSARIO ####[facility] Hlutgoylnx[address] [place], [place] [address]Dr. Nahed Yañez BAND # 0.0 103/ul Normal 0.0-0.3 The [facility] Comment on above: Performed By: #### C ROSARIO ####[facility] Perezlysca[address] [place], [place] [address]Dr. Rosemarieashley Otilio BAND % 0 % Normal 0-5 The [facility] Comment on above: Performed By: #### C ROSARIO ####[facility] Rqnpcedwon88[address] [place], [place] [address]Dr. Rosemarieashley Otilio BASOM # 0.00 103/ul Normal 0.00-0.10 The [facility] Comment on above: Performed By: #### C ROSARIO ####[facility] Tpqkwiknaa[address] [place], [place] [address]Dr. Nahed Yañez BASOM % 0.0 % Critically low 0.2-2.0 The [facility] Comment on above: Performed By: #### C ROSARIO ####[facility] Dylhvqhzrs9461 [place] [address]Dr. Nahed Yañez BLAST # Normal [facility] Comment on above: Performed By: #### C ROSARIO ####[facility] Tbzendcrgp5623 [place] [address]Dr. Nahed Yañez BLAST % Normal The [facility] Comment on above: Performed By: #### C ROSARIO ####[facility] Pfqyqgccpe[address] [place], [place] [address]Dr. Nahed Yañez CORRECTED WBC Normal 4.0-11.0 The [facility] Comment on above: Performed By: #### C ROSARIO ####[facility] Fryaiwbrgp60[address] [place], [place] [address]Dr. Nahed Yañez EOS # 0.00 103/ul Normal 0.00-0.70 [facility] Comment on above: Performed By: #### C ROSARIO ####[facility] Ujaltetycu[address] [place], [place] [address]Dr. Nahed Yañez EOS% 0.0 % Critically low 0.9-7.0 [facility] Comment on above: Performed By: #### C ROSARIO ####[facility] Aejbdycnvz[address] [place], [place] [address]Dr. Nahed Yañez HCT 33.5 % Critically low 36.0-48.0 The [facility] Comment on above: Performed By: #### C ROSARIO ####[facility] Yvwrvbdesc[address] [place], [place] [address]Dr. Nahed Yañez HGB 10.7 g/dl Critically low 12.0-16.0 The [facility] Comment on above: Performed By: #### C ROSARIO ####[facility] Fwduwzexcw[address] [place], [place] [address]Dr. Nahed Yañez LYMPHM # 1.39 103/ul Normal 1.20-3.80 The [facility] Comment on above: Performed By: #### C ROSARIO ####[facility] Fjjftrooak0[address] [place], [place] [address]Dr. Nahed Yañez LYMPHM% 7.0 % Critically low 20.5-60.0 The [facility] Comment on above: Performed By: #### C ROSARIO ####[facility] Bkmrssorcm3289 [place] [address]Dr. Nahed Yañez MCH 28.5 pg Normal 26.7-34.0 The [facility] Comment on above: Performed By: #### C ROSARIO ####[facility] Hcsxpsgwhx5259 [place] [address]Dr. Nahed Yañez MCHC 31.9 g/dl Normal 29.9-35.2 The [facility] Comment on above: Performed By: #### C ROSARIO ####[facility] Tdaellplay299[address] [place] [address]Dr. Nahed Yañez MCV 89.1 fL Normal 81.0-99.0 The [facility] Comment on above: Performed By: #### C ROSARIO ####[facility] Asgbcbqzob[address] [place], [place] [address]Dr. Nahed Yañez METAMYELOCYTE # Normal The [facility] Comment on above: Performed By: #### C ROSARIO ####[facility] Wczdmcvhys6106 [place] [address]Dr. Nahed Yañez METAMYELOCYTE % Normal [facility] Comment on above: Performed By: #### C ROSARIO ####[facility] Lfpgrfyvkq3865 [place] [address]Dr. Nahed Yañez MONOM# 0.40 103/ul Normal 0.30-0.80 The [facility] Comment on above: Performed By: #### C ROSARIO ####[facility] Neqjsfzolg8820 [place] [address]Dr. Nahed Yañez MONOM% 2.0 % Normal 1.7-12.0 The [facility] Comment on above: Performed By: #### C ROSARIO ####[facility] Waypyvombs7655 [place] [address]Dr. Nahed Yañez MPV 10.0 fL Normal 9.5-13.5 The [facility] Comment on above: Performed By: #### C ROSARIO ####[facility] Phaelifoej39[address] [place], [place] [address]Bf. Nahed Yañez MYELOCYTE # Normal [facility] Comment on above: Performed By: #### C BCISAIAH ####[facility] Hjbefxzfxy2666 [place], [place] [address]Jg. Nahed Yañez MYELOCYTE % Normal The [facility] Comment on above: Performed By: #### C ROSARIO ####[facility] Dmgxsrtjeo5542 [place], [place] [address]Dn. Nahed Yañez NRBC Normal The [facility] Comment on above: Performed By: #### C ROSARIO ####[facility] Trkbukyoik2494 [place], [place] [address]Mb. Nahed Yañez PLT 338 103/ul Normal 150-450 [facility] Comment on above: Performed By: #### C ROSARIO ####[facility] Hysuqlqsyw5882 [place], [place] [address]Mx. Nahed Yañez RBC 3.76 106/ul Critically low 4.20-5.40 [facility] Comment on above: Performed By: #### C ROSARIO ####[facility] Hslxgaqlfk0936 [place], [place] [address]Sm. Nahed Yañez RDW 15.3 % Critically high 11.0-15.0 [facility] Comment on above: Performed By: #### C ROSARIO ####[facility] Upsgujielt3758 [place], [place] [address]Vw. Nahed Yañez SEG # 17.91 103/ul Critically high 1.40-6.50 [facility] Comment on above: Performed By: #### C ROSARIO ####[facility] Lqjbpenhgv6877 [place], [place] [address]Mb. Nahed Yañez SEG % 90.0 % Critically high 43.0-75.0 [facility] Comment on above: Performed By: #### C BCISAIAH ####[facility] Ptcinvwfvg9825 [place], [place] [address]Wr. Nahed Yañez WBC 19.9 103/ul Critically high 4.0-11.0 [facility] Comment on above: Performed By: #### C BCMAN ####[facility] Upsnefjwii12[address] [place] [address]Dr. Nahed Yañez POINT OF CARE GLUCOSEon 08-12 Glucose [Mass/Vol] 200 mg/dL Critically high 74-106 [facility] Comment on above: Performed By: #### P OCGLUC ####[facility] Vgyoctwbpl9827 [place] [address]Dr. Nahed Yañez Glucose [Mass/Vol] 131 mg/dL Critically high 74-106 [facility] Comment on above: Performed By: #### P OCGLUC ####[facility] Xayusqkcne1745 [place] [address]Dr. Nahed Yañez Glucose [Mass/Vol] 176 mg/dL Critically high -106 [facility] Comment on above: Performed By: #### P OCGLUC ####[facility] Xcvxbvmybw5270 [place] [address]Dr. Nahed Yañez PROF 14(COMP METB)on 023 Albumin [Mass/Vol] 2.2 g/dL Critically low 3.4-5.0 [facility] Comment on above: Performed By: #### Nydia ELLER CMP ####[facility] Vbssjdlwat[address] [place], [place] [address]Dr. Nahed Yañez Albumin/Globulin [Mass ratio] 0.6 {ratio} Normal [facility] Comment on above: Performed By: #### Nydia ELLER CMP ####[facility] Lnmmhwemaa2431 [place] [address]Dr. Nahed Yañez ALP [Catalytic activity/Vol] 101 U/L Normal 46-116 [facility] Comment on above: Performed By: #### Nydia ELLER CMP ####[facility] Wsnepgbtvf0[address] [place], [place] [address]Dr. Nahed Yañez ALT [Catalytic activity/Vol] 19 U/L Normal 14-59 [facility] Comment on above: Performed By: #### Nydia ELLER CMP ####[facility] Wpywnejokj7[address] [place], [place] [address]Dr. Nahed Yañez Anion gap [Moles/Vol] 12.0 mmol/L Normal [facility] Comment on above: Performed By: #### Nydia ELLER CMP ####[facility] Vbapfadcmn[address] [place], [place] [address]Dr. Nahed Yañez AST [Catalytic activity/Vol] 14 U/L Critically low 15-37 [facility] Comment on above: Performed By: #### Nydia ELLER CMP ####[facility] Azglhefzts[address] [place], [place] [address]Dr. Nahed Yañez Bilirubin [Mass/Vol] 0.2 mg/dL Normal 0.2-1.0 [facility] Comment on above: Performed By: #### Nydia ELLER CMP ####[facility] Ydkmwsxrgo[address] [place], [place] [address]Dr. Nahed Yañez Calcium [Mass/Vol] 9.5 mg/dL Normal 8.5-10.1 [facility] Comment on above: Performed By: ###Daniela ELLER CMP ####[facility] Mttddcixhh[address] [place], [place] [address]Dr. Nahed Yañez Chloride [Moles/Vol] 105 mmol/L Normal 98-107 [facility] Comment on above: Performed By: #### Nydia ELLER CMP ####[facility] Ldysgkibhp[address] [place], [place] [address]Dr. Nahed Yañez CO2 [Moles/Vol] 27.9 mmol/L Normal 21.0-32.0 The [facility] Comment on above: Performed By: ###Daniela ELLER CMP ####[facility] Hlioafxgll[address] [place], [place] [address]Dr. Nahed Yañez Creatinine [Mass/Vol] 1.08 mg/dL Critically high 0.55-1.02 [facility] Comment on above: Performed By: #### Nydia ELLER CMP ####[facility] Aslsvmzvhs[address] [place], [place] [address]Dr. Nahed Yañez EGFR-AF UGANDAN >60 Normal >=60 [facility] Comment on above: Performed By: #### Nydia ELLER CMP ####[facility] Iwzaxbaohh9[address] [place] [address]Dr. Nahed Yañez EGFR-NON AF UGANDAN 52 mL/min/1.73m2 Critically low >=60 [facility] Comment on above: Performed By: #### Nydia ELLER, CMP ####[facility] Byesksekvx[address] [place], [place] [address]Dr. Nahed Yañez Globulin (S) [Mass/Vol] 3.7 g/dL Normal [facility] Comment on above: Performed By: #### Nydia ELLER, CMP ####[facility] Lbmoiymurp[address] [place], [place] [address]Dr. Nahed Yañez Glucose [Mass/Vol] 182 mg/dL Critically high 74-106 [facility] Comment on above: Performed By: #### Nydia ELLER CMP ####[facility] Wnzsrxbdqg[address] [place], [place] [address]Dr. Nahed Yañez Potassium [Moles/Vol] 3.9 mmol/L Normal 3.5-5.1 [facility] Comment on above: Performed By: #### Nydia ELLER CMP ####[facility] Cknnrgexwu[address] [place], [place] [address]Dr. Nahed Yañez Protein [Mass/Vol] 5.9 g/dL Critically low 6.4-8.2 [facility] Comment on above: Performed By: #### Nydia ELLER CMP ####[facility] Imvoinoikg[address] [place], [place] [address]Dr. Nahed Yañez Sodium [Moles/Vol] 141 mmol/L Normal 136-145 [facility] Comment on above: Performed By: #### Nydia ELLER, CMP ####[facility] Cdjkdcdvzy[address] [place] [address]Dr. Nahed Yañez Urea nitrogen [Mass/Vol] 20.0 mg/dL Critically high 7.0-18.0 [facility] Comment on above: Performed By: #### Nydia ELLER, CMP ####[facility] Fehqhugtox[address] [place], [place] [address]Dr. Nahed Yañez Urea nitrogen/Creatinine [Mass ratio] 18.5 mg/mg Normal [facility] Comment on above: Performed By: #### T RAFITA, CMP ####[facility] Mvecgngokd[address] [place] [id number]. Nahed Yañez THEOPHYLLINEon 08-23-2022 THEOPHYLLINE 22.9 ug/mL Critically high 10.0-20.0 [facility] Comment on above: Performed By: #### Nydia ELLER, CMP ####[facility] Tvtsnohdos[address] [place], [place] [address]Dr. Nahed Yañez CBC AUTO DIFFon 08-22-2022 BASO # 0.0 103/ul Normal 0.0-0.1 [facility] Comment on above: Performed By: #### C BC ####[facility] Jfixwcxeyu3[address] [place], [place] [address]Dr. Nahed Yañez Basophils/100 WBC (Bld) 0.1 % Critically low 0.2-2.0 [facility] Comment on above: Performed By: #### C BC ####[facility] Driesoywjy[address] [place], [place] [address]DrShaun Yañez EO # 0.0 103/ul Normal 0.0-0.7 [facility] Comment on above: Performed By: #### C BC ####[facility] Vntgptjdph[address] [place], [place] [address]Dr. Nahed Yañez Eosinophils/100 WBC (Bld) 0.0 % Critically low 0.9-7.0 [facility] Comment on above: Performed By: #### C BC ####[facility] Ewdebqdtzh[address] [place], [place] [address]Dr. Nahed Yañez Erythrocyte distribution width (RBC) [Ratio] 15.1 % Critically high 11.0-15.0 [facility] Comment on above: Performed By: #### C BC ####[facility] Zzehocpakd[address] [place], [place] [address]DrShaun Yañez Hematocrit (Bld) [Volume fraction] 31.4 % Critically low 36.0-48.0 [facility] Comment on above: Performed By: #### C BC ####[facility] Dapivwtzch[address] [place], [place] [address]Dr. Nahed Yañez Hemoglobin (Bld) [Mass/Vol] 10.2 g/dL Critically low 12.0-16.0 The [facility] Comment on above: Performed By: #### C BC ####[facility] Wkzjggfgeq64[address] [place] [address]DrShaun Yañez IG # 0.08 10e3/ul Critically high 0.00-0.03 [facility] Comment on above: Performed By: #### C BC ####[facility] Kmsvsakoxo[address] [place], [place] [address]DrShaun Yañez IG % 0.6 % Critically high 0.0-0.5 [facility] Comment on above: Performed By: #### C BC ####[facility] Vnpqeolwgn[address] [place], [place] [address]DrShaun Yañez LYMPH # 0.9 103/ul Critically low 1.2-3.8 The [facility] Comment on above: Performed By: #### C BC ####[facility] Mywmyrggxy[address] [place], [place] [address]DrShaun Yañez Lymphocytes/100 WBC (Bld) 6.1 % Critically low 20.5-60.0 The [facility] Comment on above: Performed By: #### C BC ####[facility] Tuazowzlnk[address] [place], [place] [address]DrShaun Yañez MANUAL DIFF REQ NO Normal [facility] Comment on above: Performed By: #### C BC ####[facility] Xlwjmxcouk[address] [place], [place] [address]DrShaun Yañez MCH (RBC) [Entitic mass] 28.3 pg Normal 26.7-34.0 The [facility] Comment on above: Performed By: #### C BC ####[facility] Iwbnuyojko[address] [place], [place] [address]DrShaun Yañez MCHC (RBC) [Mass/Vol] 32.5 g/dL Normal 29.9-35.2 The [facility] Comment on above: Performed By: #### C BC ####[facility] Fprjsjpeif64[address] [place], [place] [address]DrShaun Yañez MCV (RBC) [Entitic vol] 87.0 fL Normal 81.0-99.0 The [facility] Comment on above: Performed By: #### C BC ####[facility] Jravpalebv8[address] [place], [place] [address]DrShaun Yañez MONO # 0.7 103/ul Normal 0.3-0.8 The [facility] Comment on above: Performed By: #### C BC ####[facility] Ntlblajcrw[address] [place], [place] [address]DrShaun Nahed Otilio Monocytes/100 WBC (Bld) 5.1 % Normal 1.7-12.0 The [facility] Comment on above: Performed By: #### C BC ####[facility] Vevybdhlis[address] [place], [place] [address]DrShaun Nahed Yañez NEUT # 12.2 103/ul Critically high 1.4-6.5 The [facility] Comment on above: Performed By: #### C BC ####[facility] Cjkdvvhdgo[address] [place], [place] [address]DrShaun Nahed Yañez Neutrophils/100 WBC (Bld) 88.1 % Critically high 43.0-75.0 The [facility] Comment on above: Performed By: #### C BC ####[facility] Egpdqbqala[address] [place], [place] [address]DrShaun Nahed Yañez Platelet mean volume (Bld) [Entitic vol] 10.2 fL Normal 9.5-13.5 The [facility] Comment on above: Performed By: #### C BC ####[facility] Ctaxsxyprl[address] [place], [place] [address]DrShaun Nahed Otilio PLT 271 103/ul Normal 150-450 The [facility] Comment on above: Performed By: #### C BC ####[facility] Dpazlzdjlx[address] [place], [place] [address]DrShaun Houstonashley Otilio RBC 3.61 106/ul Critically low 4.20-5.40 The [facility] Comment on above: Performed By: #### C BC ####[facility] Havduolzhc[address] [place], [place] [address]Dr. Nahed Yañez WBC 13.9 103/ul Critically high 4.0-11.0 [facility] Comment on above: Performed By: #### C BC ####[facility] Fwgktyeggg[address] [place] [address]Dr. Nahed Yañez CULTURE URINEon 08-22-2022 CULTURE URINE Culture Observations : LIGHT GROWTH OF MIXED GENITAL MIGUEL. NO POTENTIAL PATHOGENS SEEN. Normal [facility] Comment on above: Performed By: #### U RCX ####[facility] Hmyorefzpu[address] [place] [address]Dr. Nahed Yañez POINT OF CARE GLUCOSEon 08-12 Glucose [Mass/Vol] 252 mg/dL Critically high 74-106 [facility] Comment on above: Performed By: #### P OCGLUC ####[facility] Doxuqkpziq92[address] [place] [address]Dr. Nahed Yañez Glucose [Mass/Vol] 293 mg/dL Critically high 74-106 [facility] Comment on above: Performed By: #### P OCGLUC ####[facility] Pfhqqygekv0604 [place] [address]Dr. Nahed Yañez Glucose [Mass/Vol] 292 mg/dL Critically high -106 [facility] Comment on above: Performed By: #### P OCGLUC ####[facility] Hcalhajmue36[address] [place] [address]Dr. Nahed Yañez PROF 14(COMP METB)on 023 Albumin [Mass/Vol] 2.1 g/dL Critically low 3.4-5.0 [facility] Comment on above: Performed By: #### C MP ####[facility] Smuvipuxhp38[address] [place] [address]Dr. Nahed Yañez Albumin/Globulin [Mass ratio] 0.5 {ratio} Normal [facility] Comment on above: Performed By: #### C MP ####[facility] Qbodibodwv8813 [place] [address]Dr. Nahed Yañez ALP [Catalytic activity/Vol] 92 U/L Normal 46-116 [facility] Comment on above: Performed By: #### C MP ####[facility] Lutlqwuhpd[address] [place] [address]Dr. Nahed Yañez ALT [Catalytic activity/Vol] 19 U/L Normal 14-59 The [facility] Comment on above: Performed By: #### C MP ####[facility] Dwybphpgwg88[address] [place] [address]Dr. Nahed Yañez Anion gap [Moles/Vol] 15.9 mmol/L Normal Th e [facility] Comment on above: Performed By: #### C MP ####[facility] Hayciepxxk8017 [place] [address]Dr. Nahed Yañez AST [Catalytic activity/Vol] 8 U/L Critically low 15-37 [facility] Comment on above: Performed By: #### C MP ####[facility] Yhmupfvmqi6686 [place] [address]Dr. Nahed Yañez Bilirubin [Mass/Vol] 0.3 mg/dL Normal 0.2-1.0 The [facility] Comment on above: Performed By: #### C MP ####[facility] Jmjbhjlimh2893 [place] [address]Dr. Nahed Yañez Calcium [Mass/Vol] 9.4 mg/dL Normal 8.5-10.1 [facility] Comment on above: Performed By: #### C MP ####[facility] Znclebocys3381 [place] [address]Dr. Nahed Yañez Chloride [Moles/Vol] 101 mmol/L Normal 98-107 The [facility] Comment on above: Performed By: #### C MP ####[facility] Djxutrrtxe7[address] [place] [address]Dr. Nahed Yañez CO2 [Moles/Vol] 22.5 mmol/L Normal 21.0-32.0 The [facility] Comment on above: Performed By: #### C MP ####[facility] Kvlhxvvjhe5188 [place] [address]Dr. Nahed Yañez Creatinine [Mass/Vol] 1.16 mg/dL Critically high 0.55-1.02 [facility] Comment on above: Performed By: #### C MP ####[facility] Jfdapemdam9254 [place] [address]Dr. Nahed Yañez EGFR-AF UGANDAN 58 mL/min/1.73m2 Critically low >=60 [facility] Comment on above: Performed By: #### C MP ####[facility] Vbwydbcsub6599 [place] [address]Dr. Nahed Yañez EGFR-NON AF UGANDAN 47 mL/min/1.73m2 Critically low >=60 [facility] Comment on above: Performed By: #### C MP ####[facility] Qkusemaibe4730 [place] [address]Dr. Nahed Yañez Globulin (S) [Mass/Vol] 4.2 g/dL Normal [facility] Comment on above: Performed By: #### C MP ####[facility] Rmgvlikaet7934 [place] [address]Dr. Nahed Yañez Glucose [Mass/Vol] 409 mg/dL Critically high 74-106 [facility] Comment on above: Performed By: #### C MP ####[facility] Uquldsvmrj4959 [place] [address]Dr. Nahed Yañez Potassium [Moles/Vol] 3.4 mmol/L Critically low 3.5-5.1 [facility] Comment on above: Performed By: #### C MP ####[facility] Ptymxioyqi5490 [place] [address]Dr. Nahed Yañez Protein [Mass/Vol] 6.3 g/dL Critically low 6.4-8.2 [facility] Comment on above: Performed By: #### C MP ####[facility] Cwhaaauhbc8898 [place] [address]Dr. Nahed Yañez Sodium [Moles/Vol] 136 mmol/L Normal 136-145 [facility] Comment on above: Performed By: #### C MP ####[facility] Walmiiggpr1399 [place] [address]Dr. Nahed Yañez Urea nitrogen [Mass/Vol] 16.0 mg/dL Normal 7.0-18.0 [facility] Comment on above: Performed By: #### C MP ####[facility] Zdcsfeqvnt[address] [place], [place] [address]Dr. Nahed Yañez Urea nitrogen/Creatinine [Mass ratio] 13.8 mg/mg Normal The [facility] Comment on above: Performed By: #### C MP ####[facility] Czvzazvjno[address] [place], [place] [address]Dr. Nahed Yañez THEOPHYLLINEon 08-22-2022 THEOPHYLLINE 13.4 ug/mL Normal 10.0-20.0 The [facility] Comment on above: Performed By: #### T RAFITA ####[facility] Wgxxidfzou[address] [place], [place] [address]Dr. Nahed Yañez UA RANDOM W/MICROSCOPICon BACTERIA NONE SEEN Normal NONE SEEN The [facility] Comment on above: Performed By: #### U AMIC ####[facility] Pasgzjowiv12[address] [place], [place] [address]Dr. Nahed Yañez Bilirubin Ql (U) Negative Normal NEGATIVE The [facility] Comment on above: Performed By: #### U AMIC ####[facility] Atwcoigwlz5[address] [place], [place] [address]Dr. Nahed Yañez CAST NONE SEEN Normal NONE SEEN The [facility] Comment on above: Performed By: #### U AMIC ####[facility] Vcsrhaqwnh5[address] [place], [place] [address]Dr. Nahed Yañez Clarity (U) CLEAR Normal CLEAR The [facility] Comment on above: Performed By: #### U AMIC ####[facility] Dktmarqvwt4[address] [place], [place] [address]Dr. Nahed Yañez Color (U) LT. YELLOW Normal YELLOW The [facility] Comment on above: Performed By: #### U AMIC ####[facility] Ifspdliwfa5225[address] [place], [place] [address]Dr. Nahed Yañez Crystals LM Nom (Urine sed) NONE SEEN Normal NONE SEEN The [facility] Comment on above: Performed By: #### U AMIC ####[facility] Ikxgluuepf[address] [place], [place] [address]Dr. Nahed Yañez Epithelial cells LM Ql (Urine sed) RARE Normal NONE SEEN /RARE The [facility] Comment on above: Performed By: #### U AMIC ####[facility] Grythdmrps6389 [place] [address]Dr. Nahed Yañez Glucose Ql (U) 100 mg/dl Abnormal NEGATIVE The [facility] Comment on above: Performed By: #### U AMIC ####[facility] Ejkhhetssh3598 [place] [address]Dr. Nahed Yañez Hemoglobin Ql (U) Negative Normal NEGATIVE The [facility] Comment on above: Performed By: #### U AMIC ####[facility] Uxeqkabdeo0080 [place] [address]Dr. Nahed Yañez Ketones Ql (U) Negative Normal NEGATIVE The [facility] Comment on above: Performed By: #### U AMIC ####[facility] Jmtdntenyc8827 [place] [address]Dr. Nahed Yañez LEUKOCYTES Negative Normal NEGATIVE The [facility] Comment on above: Performed By: #### U AMIC ####[facility] Iggxwqdbuw[address] [place], [place] [address]Dr. Nahed Yañez MUCOUS NONE SEEN Normal NONE SEEN The [facility] Comment on above: Performed By: #### U AMIC ####[facility] Pqnqzxjcak8[address] [place], [place] [address]Dr. Nahed Yañez Nitrite Ql (U) Negative Normal NEGATIVE The [facility] Comment on above: Performed By: #### U AMIC ####[facility] Znacewpswn5476 [place] [address]Dr. Nahed Yañez pH (U) 5.5 [pH] Normal 5-9 The [facility] Comment on above: Performed By: #### U AMIC ####[facility] Cfvtqdftlc1680 [place] [address]Dr. Nahed Yañez RBC NONE SEEN Abnormal 0-2 The [facility] Comment on above: Performed By: #### U AMIC ####[facility] Sdtvfjnqcd4724 [place] [address]Dr. Rosemarieashley Yañez SPEC GRAVITY 1.020 Normal 1.005-<=1.02 5 [facility] Comment on above: Performed By: #### U AMIC ####[facility] Eigqmtcudl5261 [place] [address]Dr. Nahed Yañez UA PROTEIN Negative Normal NEGATIVE/ TRACE The [facility] Comment on above: Performed By: #### U AMIC ####[facility] Lqdbzaiqrf9305 [place] [address]Dr. Nahed Yañez Urobilinogen Qn (U) 0.2 {Alem'U}/dL Normal 0.2 - 1. 0 The [facility] Comment on above: Performed By: #### U AMIC ####[facility] Drbafrdxwc9762 [place] [address]Dr. Nahed Yañez WBC NONE SEEN Normal NONE SEEN The [facility] Comment on above: Performed By: #### U AMIC ####[facility] Gxdpvhuvox7[address] [place], [place] [address]Dr. Nahed Yañez BLOOD GASES BTYon 08-21-2022 02 MODE ROOM AIR Normal [facility] Comment on above: Performed By: #### A BG ####[facility] Usamgqsoxr[address] [place], [place] [address]Dr. Nahed Yañez ALLENS TEST Positive Normal [facility] Comment on above: Performed By: #### A BG ####[facility] Oxmgtiqbhw[address] [place], [place] [address]Dr. Nahed Yañez Base excess Calc (Bld) [Moles/Vol] 3.2 mmol/L Critically high -2.0-2.0 The [facility] Comment on above: Performed By: #### A BG ####[facility] Qfiqouvhhg[address] [place], [place] [address]Dr. Nahed Yañez BIPAP PRESSURE Normal The [facility] Comment on above: Performed By: #### A BG ####[facility] Wknirksowh4[address] [place], [place] [address]Dr. Nahed Yañez CPAP Normal [facility] Comment on above: Performed By: #### A BG ####[facility] Mlzxsimlba024[address] [place], [place] [address]Dr. Nahed Yañez FIO2 Normal The [facility] Comment on above: Performed By: #### A BG ####[facility] Ckbmxatnbv7063 [place] [address]Dr. Nahed Yañez HCO3 (Bld) [Moles/Vol] 26.8 mmol/L Critically high 22.0-26 .0 [facility] Comment on above: Performed By: #### A BG ####[facility] Iomvfjqyoj5817 [place] [address]Dr. Nahed Yañez LPM Normal [facility] Comment on above: Performed By: #### A BG ####[facility] Tgsirieokw4[address] [place], [place] [address]Dr. Nahed Yañez MINUTE VOLUME Normal The [facility] Comment on above: Performed By: #### A BG ####[facility] Ivruzifaht5[address] [place], [place] [address]Dr. Nahed Yañez Oxygen (Bld) [Partial pressure] 55.1 mm[Hg] Critically low 80.0-100.0 [facility] Comment on above: Performed By: #### A BG ####[facility] Jkahdicplv[address] [place], [place] [address]Dr. Nahed Yañez Oxygen saturation in Blood 90.2 % Critically low 95.0-100.0 [facility] Comment on above: Performed By: #### A BG ####[facility] Diupwzvssl[address] [place], [place] [address]Dr. Nahed Yañez PCO2 36.7 mmHg Normal 35.0-45.0 [facility] Comment on above: Performed By: #### A BG ####[facility] Mltotrknly[address] [place], [place] [address]Dr. Nahed Yañez PEEP Normal The [facility] Comment on above: Performed By: #### A BG ####[facility] Gqnsvjixiu15[address] [place], [place] [address]Dr. Nahed Yañez pH (Bld) 7.472 [pH] Critically high 7.350-7.450 The [facility] Comment on above: Performed By: #### A BG ####[facility] Hkrowqamwk[address] [place], [place] [address]Dr. Nahed Yañez PIP Normal [facility] Comment on above: Performed By: #### A BG ####[facility] Eerqeclyri0105 [place] [address]Dr. Nahed Yañez PS [facility] Comment on above: Performed By: #### A BG ####[facility] Vjdigglhlo5310 [place] [address]Dr. Nahed Yañez PUNCTURE SITE LR Normal [facility] Comment on above: Performed By: #### A BG ####[facility] Pagscjyprr4901 [place] [address]Dr. Nahed Yañez RATE [facility] Comment on above: Performed By: #### A BG ####[facility] Pysectmbuy0096 [place] [address]Dr. Nahed Yañez VENT MODE [facility] Comment on above: Performed By: #### A BG ####[facility] Qedjslpwee[address] [place], [place] [address]Dr. Nahed Yañez [place] [facility] Comment on above: Performed By: #### A BG ####[facility] Vgkrktppfz[address] [place], [place] [address]Dr. Nahed Yañez BNPon 08-21-2022 Natriuretic peptide B (Bld) [Mass/Vol] 131.0 pg/mL Normal <=900.0 [facility] Comment on above: Performed By: #### B DIRECTOR OF FIRST IMPRESSIONS ####[facility] Zegiknkbqr[address] [place], [place] [address]Dr. Nahed Yañez CARDIAC FRANCISCO 3-6on 3 CK [Catalytic activity/Vol] 17 U/L Critically low 26-192 [facility] Comment on above: Performed By: #### C MREP ####[facility] Ndkcvlnesh8845 [place] [address]Dr. Nahed Yañez CK.MB [Mass/Vol] ng/mL Normal <=3.60 [facility] Comment on above: Performed By: #### C MREP ####[facility] Vxkjwgjyof4494 [place] [address]Dr. Nahed Yañez HSTROP 25.1 pg/mL Normal 4.0-51.3 [facility] Comment on above: Result Comment: CUT- OFF POINTS HAVE BEEN ESTABLISHED BASED ON THE FOURTH UNIVERSAL DEFINITIONS OF MYOCARDIALINFARCTION. THE UPPER REFERENCE LIMIT (URL) OF TROPONIN, DEFINED THE 99TH PERCENTILE OFcTnI DISTRIBUTION IN A REFERENCE POPULATION, HAS BEEN CONFIRMED THE DECISION THRESHOLDFOR [place] DIAGNOSIS. Performed By: #### C MREP ####[facility] Afwfpyrnav0263 [place] [address]Dr. Nahed Yañez CARDIAC FRANCISCO ADMITon 023 CK [Catalytic activity/Vol] 39 U/L Normal 26-192 [facility] Comment on above: Performed By: #### B RENZO, CMADM ####[facility] Qsndfcuomx[address] [place] [address]Dr. Nahed Yañez CK.MB [Mass/Vol] ng/mL Normal <=3.60 [facility] Comment on above: Performed By: #### B RENZO, CMADM ####[facility] [address] [place] [address]Dr. Nahed Yañez HSTROP 24.4 pg/mL Normal 4.0-51.3 [facility] Comment on above: Result Comment: CUT- OFF POINTS HAVE BEEN ESTABLISHED BASED ON THE FOURTH UNIVERSAL DEFINITIONS OF MYOCARDIALINFARCTION. THE UPPER REFERENCE LIMIT (URL) OF TROPONIN, DEFINED THE 99TH PERCENTILE OFcTnI DISTRIBUTION IN A REFERENCE POPULATION, HAS BEEN CONFIRMED THE DECISION THRESHOLDFOR [place] DIAGNOSIS. Performed By: #### B RENZO, CMADM ####[facility] [address]jt[address] [place] [address]Dr. Nahed Yañez ANDRE 48 ng/mL Normal 9-82 [facility] Comment on above: Performed By: #### B RENZO, CMADM ####[facility] [address] [place] [id number]. Nahed Yañez CBC AUTO DIFFon 08-21-2022 BASO # 0.0 103/ul Normal 0.0-0.1 [facility] Comment on above: Performed By: #### C BC ####[facility] [address] [place] [address]Dr. Nahed Yañez Basophils/100 WBC (Bld) 0.2 % Normal 0.2-2.0 [facility] Comment on above: Performed By: #### C BC ####[facility] [address]jftz[address] [place] [address]Dr. Rosemarieashley Yañez EO # 0.3 103/ul Normal 0.0-0.7 [facility] Comment on above: Performed By: #### C BC ####[facility] K[address] [place], [place] [address]Dr. Nahed Yañez Eosinophils/100 WBC (Bld) 1.5 % Normal 0.9-7.0 [facility] Comment on above: Performed By: #### C BC ####[facility] T[address] [place], [place] [address]Dr. Nahed Yañez Erythrocyte distribution width (RBC) [Ratio] 15.0 % Normal 11.0-15.0 [facility] Comment on above: Performed By: #### C BC ####[facility] Lsawchfsw[address] [place], [place] [address]Dr. Nahed Yañez Hematocrit (Bld) [Volume fraction] 41.4 % Normal 36.0-48.0 [facility] Comment on above: Performed By: #### C BC ####[facility] [address] [place], [place] [address]Dr. Rosemarieashley Yañez Hemoglobin (Bld) [Mass/Vol] 13.5 g/dL Normal 12.0-16.0 [facility] Comment on above: Performed By: #### C BC ####[facility] Hq[address]fys[address] [place], [place] [address]Dr. Nahed Yañez IG # 0.18 10e3/ul Critically high 0.00-0.03 [facility] Comment on above: Performed By: #### C BC ####[facility] [address] [place], [place] [address]Dr. Nahed Yañez IG % 1.0 % Critically high 0.0-0.5 [facility] Comment on above: Performed By: #### C BC ####[facility] Lumniqntke[address] [place], [place] [address]Dr. Nahed Yañez LYMPH # 2.5 103/ul Normal 1.2-3.8 [facility] Comment on above: Performed By: #### C BC ####[facility] [address] [place] [address]Dr. Nahed Yañez Lymphocytes/100 WBC (Bld) 14.0 % Critically low 20.5-60.0 [facility] Comment on above: Performed By: #### C BC ####[facility] [address]pig[address] [place] [address]Dr. Nahed Yañez MANUAL DIFF REQ NO Normal [facility] Comment on above: Performed By: #### C BC ####[facility] F[address]ptbgifm[address] [place] [address]Dr. Nahed Yañez MCH (RBC) [Entitic mass] 28.5 pg Normal 26.7-34.0 [facility] Comment on above: Performed By: #### C BC ####[facility] [address]ref[address] [place], [place] [address]Dr. Nahed Yañez MCHC (RBC) [Mass/Vol] 32.6 g/dL Normal 29.9-35.2 [facility] Comment on above: Performed By: #### C BC ####[facility] [address] [place], [place] [address]DrShaun Yañez MCV (RBC) [Entitic vol] 87.3 fL Normal 81.0-99.0 [facility] Comment on above: Performed By: #### C BC ####[facility] Z[address]fmd[address] [place], [place] [address]Dr. Nahed Yañez MONO # 1.2 103/ul Critically high 0.3-0.8 [facility] Comment on above: Performed By: #### C BC ####[facility] [address]ec[address]id[address] [place], [place] [address]Dr. Nahed Yañez Monocytes/100 WBC (Bld) 6.8 % Normal 1.7-12.0 [facility] Comment on above: Performed By: #### C BC ####[facility] Qetzstpeng[address] [place], [place] [address]Dr. Nahed Yañez NEUT # 13.8 103/ul Critically high 1.4-6.5 [facility] Comment on above: Performed By: #### C BC ####[facility] [address] [place] [address]Dr. Nahed Yañez Neutrophils/100 WBC (Bld) 76.5 % Critically high 43.0-75.0 [facility] Comment on above: Performed By: #### C BC ####[facility] [address] [place] [address]Dr. Nahed Yañez Platelet mean volume (Bld) [Entitic vol] 10.5 fL Normal 9.5-13.5 [facility] Comment on above: Performed By: #### C BC ####[facility] [address] [place], [place] [address]Dr. Nahed Yañez PLT 319 103/ul Normal 150-450 [facility] Comment on above: Performed By: #### C BC ####[facility] Fdiplfdbcy[address] [place], [place] [address]Dr. Rosemarieashley Otilio RBC 4.74 106/ul Normal 4.20-5.40 [facility] Comment on above: Performed By: #### C BC ####[facility] Zhuqyetw[address] [place], [place] [address]Dr. Nahed Yañez WBC 18.0 103/ul Critically high 4.0-11.0 [facility] Comment on above: Performed By: #### C BC ####[facility] H[address] [place], [place] [address]Dr. Rosemarieashley Yañez CULTURE BLOODon 08-21-2022 Microscopic examination of blood, culture Culture Observations: NO GROWTH AT 5 DAYS. Normal [facility] Comment on above: Performed By: #### B LDCX2 ####[facility] [address] [place], [place] [address]Dr. Nahed Yañez Microscopic examination of blood, culture Culture Observations: NO GROWTH AT 5 DAYS. Normal [facility] Comment on above: Performed By: #### B LDCX1 ####[facility] W[address] [place], [place] [address]DrShaun Yañez Covid-19 PCR (CVDTBH)on 08-12 SARS-CoV-2 (COVID-19) RNA MIRNA+probe Ql (Unsp spec) Not detected Normal NOT DETECTED [facility] Comment on above: Result Comment: When [...] for this test is supported by the [employer] of Health and Human Service's declaration [...] be used). Performed By: #### C VDTBH ####[facility] [address] [place], [place] [address]Dr. Nahed Yañez LACTATE/LACTIC ACIDon 2022 Lactate [Moles/Vol] 1.1 mmol/L Normal 0.4-2.0 [facility] Comment on above: Performed By: #### L ACT ####[facility] [address] [place], [place] [address]Dr. Nahed Yañez Lactate [Moles/Vol] 2.4 mmol/L Critically high 0.4-2.0 [facility] Comment on above: Performed By: #### L ACT ####[facility] X[address]rpqek[address] [place], [place] [address]Dr. Nahed Yañez POINT OF CARE GLUCOSEon 08-12 Glucose [Mass/Vol] 453 mg/dL Critically high 74-106 [facility] Comment on above: Performed By: #### P OCGLUC ####[facility] [address] [place], [place] [address]Dr. Nahed Yañez Glucose [Mass/Vol] 358 mg/dL Critically high 74-106 [facility] Comment on above: Performed By: #### P OCGLUC ####[facility] L[address] [place] [address]Dr. Nahed Yañez Glucose [Mass/Vol] 98 mg/dL Normal 74-106 [facility] Comment on above: Performed By: #### P OCGLUC ####[facility] Msobmjxclv[address] [place] [address]Dr. Nahed Yañez PROF CHEM 8 (BAS METB)on Anion gap [Moles/Vol] 14.7 mmol/L Normal [facility] Comment on above: Performed By: #### B ERICK MULLER ####[facility] Ezxluql[address]mx[address] [place], [place] [address]Dr. Nahed Yañez Calcium [Mass/Vol] 9.6 mg/dL Normal 8.5-10.1 [facility] Comment on above: Performed By: #### B ERICK MULLER ####[facility] V[address]oregszuc[address] [place] [address]Dr. Nahed Yañez Chloride [Moles/Vol] 95 mmol/L Critically low 98-107 [facility] Comment on above: Performed By: #### B ERICK MULLER ####[facility] T[address]ojvfyp[address] [place] [address]Dr. Nahed Yañez CO2 [Moles/Vol] 25.2 mmol/L Normal 21.0-32.0 [facility] Comment on above: Performed By: #### B ERICK MULLER ####[facility] Q[address]htrsa[address] [place] [address]Dr. Nahed Yañez Creatinine [Mass/Vol] 1.15 mg/dL Critically high 0.55-1.02 [facility] Comment on above: Performed By: #### ERICK Ordonez MP ####[facility] [address] [place] [address]Dr. Nahed Yañez EGFR-AF UGANDAN 58 mL/min/1.73m2 Critically low >=60 [facility] Comment on above: Performed By: #### B MP, CMADM ####[facility] [address] [place] [id number]. Rosemarieashley Otilio EGFR-NON AF UGANDAN 48 mL/min/1.73m2 Critically low >=60 [facility] Comment on above: Performed By: #### B RENZO, CMADM ####[facility] Eb[address]mys[address] [place] [address]Dr. Nahed Yañez Glucose [Mass/Vol] 191 mg/dL Critically high 74-106 [facility] Comment on above: Performed By: #### B RENZO, CMADM ####[facility] [address] [place] [address]Dr. Nahed Yañez Potassium [Moles/Vol] 3.9 mmol/L Normal 3.5-5.1 [facility] Comment on above: Performed By: #### B RENZO, CMADM ####[facility] [address] [place] [address]Dr. Nahed Yañez Sodium [Moles/Vol] 131 mmol/L Critically low 136-145 [facility] Comment on above: Performed By: #### B RENZO, CMADM ####[facility] Crqdcbmjxm[address] [place] [address]Dr. Nahed Yañez Urea nitrogen [Mass/Vol] 15.0 mg/dL Normal 7.0-18.0 [facility] Comment on above: Performed By: #### B RENZO, CMADM ####[facility] Vrokmnsmhy[address] [place] [address]Dr. Nahed Yañez Urea nitrogen/Creatinine [Mass ratio] 13.0 mg/mg Normal [facility] Comment on above: Performed By: #### B RENZO, CMADM ####[facility] M[address]qosrwno[address] [place] [address]Dr. Nahed Yañez XR CHEST 2 Von 08-21-2022 XR CHEST 2 V Normal [facility] Coding Summary.on 08-11-2022 Coding Summary. CD:[id number] W w+PGhlYWQ+WY9EOTXyU34 khFTrqO7yM3IHRArHLksf IAVIXKsEKmHtzqTdDN1it XNjZXJu IC8+EC2eXJVnAypfqFOor 2T7nBF4S31lsl1eOMuepE A9IEEsIzMezfxmh0qkjWt 6IDcuNmluOyBt KPKuzA13KCW7zR45Wz32j SOiiSTnd8jtnXf2PgIxZI XsVVH4mNhzMCdwr4GpITS aO09hwYYdx0X3 WPNdxJbgiEOnYhXdsZC2o L2sAGnrbalub1koahscQl k5ka52bKXwe9F2hJT6W6B hddO5URMinYKq FnotyUOPdB2vqbbwk2hcv neyMlSzQZUpGPp1BFs6ZV XmjHnkHfUsCN07ZOI1EGC igzKlO1MiSPIq ePnaFaD3q8Z5Dy9NH0LGX zfwW8YUHUZDKXxuoFA+PC 27lk43O8OxXlrxWqs4UHS rAOY3iCV9hF4f SAKlPDskh1E3bRM0E3Bps tYpjj0qe2soTRDiJKkaZ7 6ifYIxg0W5OGQdoSK3WKO qtJrsFfUmpR02 Oyc+FOWunLuqk1DePyvfs 7zjq3evwGd3MrnmWENmyd GmcRiuQGB5r5CyMw2oKWH vtWZ3uKU4aM1k HdKbNcT7ZLmzW350GgLen JUaKcimZ21sI7OffBJ+PH FyMpb0EJYhkMbtDJ3mO9E hZGRpbmctbGVm kHlaJK0fNOPjzltnCXRwi O4cOKCdS8r1YqIeFdL2RB wqS4HoUNVmqbizNe16dV4 pUgGyIeT7RTya O7AusbP9DNKaySPiIGxfC QZ2T71po8A4QRRzFNLrJE T7dHN1mK3obOhkqyctlIX mdDsgdmVydGlj TIqzQYyhQ719PEEqpWweJ kNvZGluZyBEYXRlOiAgMD MvMzEvMjAyMzwvdGQ+PHR lMEY3aRaxBMWe fYLyNRukDq4vyPqwtYkzS J6nUQCjfinrSJCwgR9pDJ UljWUizUxxUG0zYPJlvnx vn711ZvWyNMN5 QSMxsNOfF1LxjV0hLiElN DBpXLLlQ7BbdCBhKPhzJ1 39DPbaLrO8CMPmndIuD6I sLWFsaWduOiB0 u0E0Gj7Hx4MgayvkB7Wuy AOkQqRrIiwsTHy8M5MlTd wvdHI+GV09VJOiHS72SUx 9MDE5rKotUPyw XLFeC9BefS2yWdPsTGFzW GRkOyc+PHRhYmxlIHdpZH RoPScxMDAlJyBzdHlsZT0 aCn3pVVTdEZOk fWlteACkZdDsf2uxZIYoV FmnOS9lvCgpW0EihBV5BX Pnp2s4Xo14T86uB7TtnHO +GOLyaGS4rIP0 jB3nBcKnPyZ8IRrlW244O pNdxSChHjtoo4byt4rtuY u6DhJ1TSGmujPqmSigHHR 0z2IaJz40B71e IHdpZHRoPSIxNSUiIHZhb Svteg7jnL0eJl6+PGNvbC R9gEV1pS2pDaFeBvP4HIs vO601YaLcqFKw Zaqwq3hwo1dbyAn1LaNlK YXldmHanJjcQNN1h1BkHm 25L1SgcSyhl0FlBjc1kb1 0nUMsq7G1oDU4 B4ZrKSSgqgccfGOgjPhnH K2bSKMcunlkABHbuL7dXI QwG4o4HlHvJhM0NYeiI6R vqvS6GJDoxKKx CPRmdEFMaM2wkssdr5lah gxsXdJaNWGvCRv2BVy2NS FmdUsmDoWaCBX0ZhX7XJW 0sABsoU3xoOhb oghcyF4gMeu+JPG8rHXqx DHCWI5zTtidrVC+PHRkIH Y6yYfpYQhqSXSuwJ5mQWZ dO4w1MpPnNcO5 TFagA3TvrdY7FFPmhTYtY XQcxVBUzJ6jwenqk5wfru ncEtTpMREyULq3STa4YMV saWduOiBsZWZ0 RgR5TTA7cCIpwK2vpEhfs fceuT3wRez+QmlydGggRG F4WFf5L6PeWrw9SFWumAg cQN4ahHLoWAoa Iz7rvRjodEunTC1kKVNma aqxz315LqMyu0zqJVHzpS DtUGilPYF6H88pq1W5QQS uYNVwAJT8vVW3 cI4uhSjnylxzvARyhQkjo uJwtRgaOQrbJHdgA699OC HjvNplMcJaONz1U4DiYsm 1JDWimAcvCW4u sCZiQKtrCj5nrBwbtMjsW Z7wXBEexzzij849YnAnn6 olMHBdsAFeSYtwZBP9P35 qi9T8OZUhKTDk QUV0oHJ5xP7qeToevbyln GVmdDsgdmVydGljYWwtYW qfE356CWSdqGgmDiVqlDm 8K8YyXmv4QVIb mHgeJW8ulNVmGZidFr8ry MsehAmpFJ5kHGXfencsn8 66YhRrm7gsBQKewOSpLTr yGHQ2A99go0T4 DHAuXOExXCY4lVU2mR7xh GlnbjogbGVmdDsgdmVydG abOVmnQHheS797ZLVrnEg nPlBhdGllbnQg LWjvJTx0Y5SyCqnplJF+P N89QYOpDY51lEYbbYGsr7 vneZf0KtJhYPGlENH8dEt uCXizn8EfTVXb E24ncLQej1S8PGLjhPvcu XPzIsRpwOU6cM7kFKejuo siv0xartlyYsjuu3jqnx7 8nW99L52wVAcw ZHRoPSIzMCUiIHZhbGlnb k2wwI2uRn2+RKYtzVK0pC Q3qL5cURNeWcV6WPpoI75 9InRvcCIvPjxj h7uvu1mgxVa7FhF5RMAdd uGtwTifGEI7s9ErHr29W3 9sIHdpZHRoPSIyMCUiIHZ wcIkawo7hyY5n Ii8+LMTcyYU1zRQ6yJ5vW rXyStP4CZbgD070UuSpqI PyCwlsU80wO2LdmJU+PHR oRxe1UVUorAqd CL7gjJIcJCixSx9yUKX3B gTxLcCpCDsbE7ViVWQerf jqcamewCM6IOWsFVUrwK0 3Fn4upYftJNSq zAZXkQ6igmbgg7gbcuarB xLkRQNhBRt6WAq9AETatW ndXsBwFST5DbT1LJP6kXD ysB3pqRantdgl yF3kF4ZyXSUcxscjWb09r Y2wFtBtNvJ0LNvtYuv+TU KUBN7QLMSSLNETYXL6B9F lQie7HSNizJes TL3jxXAtNMmlIh8weOhny SvwHS3nUNPpmnvoQPWihK 3cSBCcwGEqiXdpQX7vPNR bcihgx699XwGu KJO4ICZuwGMaA5HruC3lQ aShYSQmTINmQ8ObnIUhED ftO185UUuyLyT1FDCgubQ vN5DhUCGixZda HjJ4p2J8Sp5jIR9wEO6tI YBkDF01RM46iKRsh6E9kB K8A7AvVEWrbpyaoobbaLX 1EILnAONziB37 zORiJXotTz6jp2H5w331E BMlOSDteY85Rj5fvKzzGQ PnbZTBkI6npbqjb1ktsxb gIzAwMDAwMDt0 KIf0HCSxzRwlBoWoYNO1D hA1SBY7pPNznT9veZkhvy omqM7aChp+NjEgWWVhcnM 3Z0XgZpa3CETr wFwlYZ7foBLsVNhtFk1ka PtznAwkSY7hWQFwhbebUH IwwN2pSIMhoRVsrGcrPS0 xZRDopaflu613 AeMgRMF4JVUafQPgT4Ttv G5jWbPzFWHjKHZyA1EzeH HiLUfyR284JPlcWzO7DHV fgbPjU8RyXJYm xOanRfO5a1E1Lg0DMU8ou JC1I8IwNju9LQXacZvnBZ 7oeUYxZZhhNu8mnGzrwZx qQO0fBQOsdvtz AMYilG6wCYTsjCTuxCkpJ T9qXJNujzdzz560XhEkHO D5WBMmfUNkG8BflY9lFpE wYHQxGFLmA6Al dMIcYTcgH476FNiyBmS2O SPcwnAlM2TnPEFlfYgqWf R2e2Q8Ug2QcZWfP5RxQ6k 5B6AtUupdrLU+ GO23DUSsDI17nLBmlTPot 5xuhNo0PaOkOSEjDIM2oK qpLQidw2JdJITpO50vlXY yb2T6EOAtnCus dMRsIhCyqAV0gN0eZTfjs mmrf0remkmoGelgf9uhdz 67cN71B04dRKpdMDHiYUV zMCUiIHZhbGln hb9teC9zEg0+LNRcgUB8z KL0rI9kSpSkIuL1DZdfO5 48DmVrvBMqHkhuk0apw6d bsTu8DmPgRBIz pmUntClfMRV5u6LsNm86N 29sIHdpZHRoPSIyMCUiIH IbyVlnim1wiV4lPh8+PC9 fg6yzcc70kQ31 dHI+RHRpUTR2mGtbVTrfX FNwrC2sRAxcWoP3VIPqSp WxoU12vVEoFSpkDf7ffEx wkYusPS6oDKWe leujv125MzNtv7hsOHQqw FBxBYtlTZZ5P51ir5V3YA HxEPAbAWI3dVY6nB6dcTw nbjogbGVmdDsg kaVrxLckDDhfPAmtG516N CTryUmxYbMtxZUpX5zspp UAXJ2rAnmfhRP+PHRkIHN 0eWxlPSdwYWRk kH1sPPJnV8z7MeLxGtC0R QaaU8KhigT6HNZsfSMrZC GkdECMwK9umlyly1ytjfi gIzAwMDAwMDt0 TKa7ACZkcJfhXbFoLHW9V yY1CWQ2nAOazD2aeGgxvu oboF5kCvi+RklOOjwvdGQ +NCDxNQP6lHfh UZtcYQSoqR4bPZXtV2s8F nEmYfN4CGhcS6DdhvE6QX EddXJzYHXspPQIyF7ovxb cg1sgxgylBdTe VWZtEHz3KRv7DIWimJscU hWfRVO6LwK4ZCT7eFRzrO 0raLrnyohlaO6pJcq+TVJ OOjwvdGQ+PHRk JCB4bRkdYEvtKQRgbD5wP DGgP7c3VjSwZsQ4KTbnE3 DeuzG1AXRopPDfCWWbvJX OwE2qjfwug2ru iziaYoJlEYHeHRw3STh5L NRikClfSuRwWMV0GaG3RX B5bOBztH5pbYiflsnzyD3 wOyc+FLU3AJS9 MU73LB65N1JqYcfdaKUwb +PHRhYmxlIHdpZHRoPS plUZTyQlOyeVtkLK2yYh0 yZGVyLWNvbGxh cHNlOiBj (more content not included)... Normal [facility] Auto Diffon 08-09-2022 Basophils/100 WBC (Bld) 0.5 % Normal 0.0-2.0 [facility] Comment on above: Order Comment: Order Added by Discern Expert. Performed By: #### 2 [id number], [id number], [id number], [id number], [id number], [id number], [id number] ####[address] [place] [address] Basophils/Leukocytes Auto (Bld) [Pure # fraction] 0.1 E9/L Normal 0.0-0.2 [facility] Comment on above: Order Comment: Order Added by Discern Expert. Performed By: #### 2 [id number], [id number], [id number], [id number], [id number], [id number], [id number] ####[facility] [address] [place] [address] Eosinophils/100 WBC (Bld) 2.7 % Normal 0.0-8.0 [facility] Comment on above: Order Comment: Order Added by Discern Expert. Performed By: #### 2 081483, 8553483, [id number], 1196861, [id number], [id number], [id number] ####[facility] [address] [place] [address] Eosinophils/Leukocytes Auto (Bld) [Pure # fraction] 0.4 E9/L Normal 0.0-0.5 [facility] Comment on above: Order Comment: Order Added by Discern Expert. Performed By: #### 2 [id number], 4689341, [id number], 8636333, 47175969, [id number], [id number] ####[facility] [address] [place] [address] Lymphocytes/100 WBC (Bld) 12.8 % Low 14.0-50.0 [facility] Comment on above: Order Comment: Order Added by Discern Expert. Performed By: #### 2 964995, 1128967, 56360131, 2617303, [id number], [id number], [id number] ####[facility] [address] [place] [address] Lymphocytes/Leukocytes Auto (Bld) [Pure # fraction] 2.1 E9/L Normal 1.0-4.0 [facility] Comment on above: Order Comment: Order Added by Discern Expert. Performed By: #### 2 136443, 2254517, [id number], 4066674, 34406810, [id number], [id number] ####[address] [place] [address] Monocytes/100 WBC (Bld) 6.4 % Normal 4.0-14.0 [facility] Comment on above: Order Comment: Order Added by [employer] Expert. Performed By: #### 2 056775, 0198770, 49627395, 5327877, 72145395, [id number], [id number] ####[address] [place] [address] Monocytes/Leukocytes Auto (Bld) [Pure # fraction] 1.0 E9/L Normal 0.2-1.0 [facility] Comment on above: Order Comment: Order Added by Refugio Expert. Performed By: #### 2 975244, 2079273, 43523235, 2541282, 44306250, 40345328, 73825421 ####[facility] [address] [place] [address] Neutrophils/100 WBC (Bld) 77.6 % High 36.0-75.0 [facility] Comment on above: Order Comment: Order Added by Discern Expert. Performed By: #### 2 643100, 6125376, 66731341, 1431351, 13382372, 31067274, 71535371 ####[facility] [address] [place] [address] Neutrophils/Leukocytes Auto (Bld) [Pure # fraction] 12.6 E9/L High 2.0-7.5 [facility] Comment on above: Order Comment: Order Added by Discern Expert. Performed By: #### 2 000623, 1066715, 25751048, 4579234, 88586192, 44591463, 29912807 ####[facility] [address] [place] [address] BMPon 08-09-2022 Creatinine [Mass/Vol] 1.1 mg/dL Normal 0.5-1.3 [facility] Comment on above: Performed By: #### 2 313559, 6898210, 72205262, 1019463, 41444229, 22817043, 99387765 ####[facility] [address] [place] [address] Urea nitrogen [Mass/Vol] 18 mg/dL Normal 5-21 [facility] Comment on above: Performed By: #### 2 703245, 1531170, 01637134, 5835124, 22355068, 74766075, 37425944 ####[facility] [address] [place] [address] Urea nitrogen/Creatinine [Mass ratio] 16 No Units Normal 10-20 [facility] Comment on above: Performed By: #### 2 550837, 2433067, 69881567, 5486585, 95391122, 43478599, 18050083 ####[facility] [address] [place] [address] Anion gap [Moles/Vol] 13 mmol/L Normal 6-16 [facility] Comment on above: Performed By: #### 2 496314, 8925439, 97179197, 4853805, 03095394, 83083795, 82267165 ####[facility] [address] [place] [address] Calcium [Mass/Vol] 8.8 mg/dL Low 8.9-11.1 [facility] Comment on above: Performed By: #### 2 199000, 2373347, 34551484, 5596471, 82566392, 86109201, 98485141 ####[facility] [address] [place] [address] Chloride [Moles/Vol] 101 mmol/L Normal 101-111 [facility] Comment on above: Performed By: #### 2 630322, 0111964, 14452884, 3157574, 34037824, 90172617, 69435621 ####[facility] [address] [place] [address] CO2 [Moles/Vol] 27 mmol/L Normal 21-31 [facility] Comment on above: Performed By: #### 2 174015, 8287854, 46969477, 1409741, 90074826, 45817054, 37220292 ####[facility] [address] [place] [address] Glucose [Mass/Vol] 121 mg/dL Normal 55-199 [facility] Comment on above: Result Comment: If t his glucose result represents a fasting glucose, interpretation should refer to the following reference range: 55-99 mg/dL Performed By: #### 2 596592, 0570471, 06620056, 0637152, 18137878, 14198572, 04202058 ####[facility] [address] [place] [address] Potassium [Moles/Vol] 3.9 mmol/L Normal 3.5-5.3 [facility] Comment on above: Performed By: #### 2 296807, 3043774, 74986455, 0637688, 28423022, 68333370, 00710333 ####[facility] [address] [place] [address] Sodium [Moles/Vol] 137 mmol/L Normal 135-145 [facility] Comment on above: Performed By: #### 2 776643, 6597651, 28022954, 7059797, 41806977, 53488451, 49437096 ####[facility] [address] [place] [address] BNPon 08-09-2022 Int Ctr BNP Pass Normal [facility] Comment on above: Performed By: #### 2 849077, 5256288, 20043964, 3220336, 77025699, 45526649, 65077710 ####[facility] [address] [place] [address] Natriuretic peptide B (Bld) [Mass/Vol] 19 pg/mL Normal 5-80 [facility] Comment on above: Performed By: #### 2 311806, 4892859, 32528676, 4220565, 62499454, 60139526, 18908171 ####[facility] [address] [place] [address] Blood Gas Art, with Lytes, Teresa alex, [place] 08-09-2022 a/A Ratio Art 75.90 % Normal >=0.80 [facility] Comment on above: Performed By: #### 4 [id number] ####[facility] [address] [place] [address] AaDO2 Art 21.9 mmHg High 5.0-15.0 [facility] Comment on above: Performed By: #### 4 [id number] ####[address] [address] Allens Test Not Applicable Normal [facility] Comment on above: Performed By: #### 4 [id number] ####[facility] [address] [place] [address] Base Excess Arterial 3.1 mmol/L Normal >=2.8 [facility] Comment on above: Performed By: #### 4 [id number] ####[facility] [address] [place] [address] cCa2+ Art 4.86 mg/dL Normal 4.40-5.30 [facility] Comment on above: Performed By: #### 4 [id number] ####[facility] [address] [place] [address] cCl- Art 105.0 mmol/L Normal 101.0-111.0 [facility] Comment on above: Performed By: #### 4 [id number] ####[facility] [address] [place] [address] cGlu Art 117 mg/dL High 55-99 [facility] Comment on above: Performed By: #### 4 [id number] ####[facility] [address] [place] [address] cK+ Art 4.0 mmol/L Normal 3.5-5.3 [facility] Comment on above: Performed By: #### 4 [id number] ####[address] [place] [address] cLac Art 1.4 mmol/L Normal .5-2.2 [facility] Comment on above: Performed By: #### 4 [id number] ####[address] [place] [address] apiculture teacher+ Art 142.0 mmol/L Normal 135.0-145.0 [facility] Comment on above: Performed By: #### 4 [id number] ####[facility] [address] [place] [address] Drawn by RLG Invalid Interpretation Code [facility] Comment on above: Performed By: #### 4 [id number] ####[facility] [address] [place] [address] FCOHb Art 1.0 % Low 1.5-4.9 [facility] Comment on above: Result Comment: Refe rence range Nonsmoker <1.5% Smoker <5.0% Heavy Smoker <9.0% Performed By: #### 4 [id number] ####[facility] [address] [place] [address] FIO2 BG 21 Invalid Interpretation Code [facility] Comment on above: Performed By: #### 4 [id number] ####[facility] [address] [place] [address] FMetHb Art 0.5 % Normal 0.0-1.9 [facility] Comment on above: Performed By: #### 4 [id number] ####[facility] [address] [place] [address] FO2Hb Art 92.6 % Normal 92.0-100.0 [facility] Comment on above: Performed By: #### 4 [id number] ####[facility] [address] [place] [address] HCO3 (Bld) [Moles/Vol] 27.1 mmol/L High 22.0-26.0 [facility] Comment on above: Performed By: #### 4 [id number] ####[address] [place] [address] Hemoglobin (Bld) [Mass/Vol] 12.5 g/dL Normal 12.0-16.0 [facility] Comment on above: Performed By: #### 4 [id number] ####[address] [address] Oxygen saturation in Blood 94.1 % Low 95.0-100.0 [facility] Comment on above: Performed By: #### 4 [id number] ####[facility] [address] [place] [address] P CO2 Arterial 48.9 mmHg High 35.0-45.0 [facility] Comment on above: Performed By: #### 4 [id number] ####[address] [place] [address] P O2 Arterial 68.8 mmHg Low 80.0-100.0 [facility] Comment on above: Performed By: #### 4 [id number] ####[address] [place] [address] pH Arterial 7.383 Normal 7.350-7.450 [facility] Comment on above: Performed By: #### 4 [id number] ####[address] [place] [address] Sample Site R Brachial Normal [facility] Comment on above: Performed By: #### 4 [id number] ####[address] [address] Sample Type Arterial Draw Normal [facility] Comment on above: Performed By: #### 4 [id number] ####[address] [address] CBC w/ Auto Diffon 3 Erythrocyte distribution width (RBC) [Ratio] 15.4 % High 10.9-14.2 [facility] Comment on above: Performed By: #### 2 607100, 4572865, 01251311, 4350247, 57381123, 49242327, 78628858 ####[address] [address] Hematocrit (Bld) [Volume fraction] 36.9 % Normal 34.0-46.0 [facility] Comment on above: Performed By: #### 2 165270, 1849210, 99745112, 4187365, 22603530, 64465285, 79409845 ####[address] [address] Hemoglobin (Bld) [Mass/Vol] 11.8 g/dL Low 12.0-16.0 [facility] Comment on above: Performed By: #### 2 304474, 1722325, 75404226, 0789430, 54956129, 34934239, 98581805 ####[address] [address] MCH (RBC) [Entitic mass] 28.0 pg Normal 27.0-34.0 [facility] Comment on above: Performed By: #### 2 637357, 5305274, 68743788, 0608710, 84213135, 94571191, 55481293 ####[address] [place] [address] MCHC (RBC) [Mass/Vol] 32.0 g/dL Normal 31.4-36.0 [facility] Comment on above: Performed By: #### 2 803932, 0763990, 40212755, 3812104, 89229110, 50010778, 63511547 ####[facility] [address] [place] [address] MCV (RBC) [Entitic vol] 87.6 fL Normal 80.0-100.0 [facility] Comment on above: Performed By: #### 2 006331, 0668824, 22332276, 8474879, 09882114, 22576944, 33528952 ####[address] [place] [address] Platelet mean volume (Bld) [Entitic vol] 8.4 fL Normal 6.4-10.8 [facility] Comment on above: Performed By: #### 2 238959, 9838084, 41557334, 9863709, 05908102, 76630676, 62713023 ####[address] [address] Platelets (Bld) [#/Vol] 238.0 E9/L Normal 150.0-500.0 [facility] Comment on above: Performed By: #### 2 438366, 8216900, 78760924, 3307590, 94895440, 05365602, 28295806 ####[address] [place] [address] RBC (Bld) [#/Vol] 4.2 E12/L Low 4.3-5.9 [facility] Comment on above: Performed By: #### 2 008545, 7696638, 55902311, 4318775, 62217791, 22915745, 39439699 ####[address] [place] [address] WBC corrected for nucl RBC Auto (Bld) [#/Vol] 16.3 E9/L High 4.0-11.0 [facility] Comment on above: Result Comment: Slid e reviewed by LW. Performed By: #### 2 039349, 9336581, 77883995, 3298108, 79939735, 53868094, 63501179 ####[facility] [address] [place] [address] CHEMISTRYOrdered By: SYSTEM SYSTEM on 08-09-2022 Troponin I.cardiac [Mass/Vol] 7.00 pg/mL Low 10.10 - 27.10 pg/mL FT Remisol Anion gap [Moles/Vol] 13 mmol/L Normal 6 - 16 mEq/L F [facility] Remisol Calcium [Mass/Vol] 8.8 mg/dL Low 8.9 - 11. 1 mg/dL FT Remisol Chloride [Moles/Vol] 101 mmol/L Normal 101 - 1 11 mmol/L FT Remisol CO2 [Moles/Vol] 27 mmol/L Normal 21 - 31 mmol/L FT Remisol Creatinine [Mass/Vol] 1.1 mg/dL Normal 0.5 - 1.3 mg/dL FT Remisol GFR/1.73 sq M.predicted among blacks MDRD (S/P/Bld) [Vol rate/Area] mL/min/1.73 m2 Normal >=59mL/min/1 .73 m2 [facility] Chem S GFR/1.73 sq M.predicted among non-blacks MDRD (S/P/Bld) [Vol rate/Area] 50 mL/min/1.73 m2 Low >=59mL/min/1 .73 m2 [facility] Chem S Glucose [Mass/Vol] 121 mg/dL Normal [...] ratio] 16 mg/mg Normal 10 - 20 FT Remisol CHEMISTRYOrdered By: Evelyn shelton on 08-09-2022 Natriuretic peptide B (Bld) [Mass/Vol] 19 pg/mL Normal 5 - 80 pg/mL [facility] HemeManSS COAGULATIONOrdered By: Sagar Castorena on 08-09-2022 aPTT Coag (PPP) [Time] 31.4 s Normal 25.1 - 36.5 second(s) [facility] Auto Coag INR Coag (PPP) [Relative time] 0.9 {INR} Invalid Interpretation Code [facility] Auto Coag PT Coag (PPP) [Time] 10.3 s Normal 9.4 - 1 2.5 second(s) [facility] Auto Coag CTA Cheston 08-09-2022 CTA Chest [...] 370 Contrast amount in ml's: 73 Normal [facility] Discharge Instructionson Discharge Instructions [id number]# [id number] Normal [facility] ED Clinical Summaryon 2022 ED Clinical Summary [place] [id number] ED Clinical Summary Person Information Name: VIVIAN VANN [place] Age: 62 Years : 1960 Sex: Female Language: Maltese PCP: Екатерина Robert MD Marital Status: Visit [...] 08/09/2022 18:01:49 08/09/2022 18:01:49 08/09/2022 18:01:49 ADDRESS: [address] [place] [phone] PHYS DOC NOTES: MEDICAL INFORMATION: Prescriptions Given: [facility], [address], [place] [id number], [phone] brompheniramine/dextr omethorphan/PSE (Bromfed DM oral syrup) 5 [...] Follow up: With: Address: When: Екатерина Robert [address] [place] [address], [facility] [address] [place] [id number] Business (1) In 3 days 08/12/2022 Comments: Call the office of your primary care doctor to arrange for follow-up within the above-stated timeframe. Follow-up with your primary care doctor about this ED visit. You should review your labs, imaging, and diagnoses from this ED visit with your primary care physician. If y (more content not included)... Normal [facility] ED Note-Physicianon 08-10-19 ED Note-Physician Basic [...] that she has had 2 admissions to [facility] over the last few weeks for pneumonia/COPD exacerbation. Patient is currently on amoxicillin at home, feels that her symptoms are not improving but are in fact worsening. Patient endorses fevers and chills, myalgias. Patient reports her symptoms had not improved much on her last discharge from [facility], and worsening since that time. Patient is [...] and Complexity of Problems Differential Diagnosis: [] [facility] Data External documents reviewed: [] My EKG [...] for co (more content not included)... Normal [facility] Comment on above: Result Comment: Elec tronically Signed By: Nic BOND, Clinton Whyte\.br\Date and Time Signed: 08/09/22 19:31 EDT\.br\Electronically Co-Signed [...] these instructions at home: Medicines ? Take ctbo-rzp-gdeubfu and prescription medicines (inhaled or pills) only [...] you e (more content not included)... Normal [facility] ED Patient Summaryon 023 ED Patient Summary [address] [address] Patient Discharge Instructions Person Information Name: VIVIAN VANN Age: 62 Years Arrival Date: 08/09/2022 13:09:07 Discharge Diagnosis: COPD exacerbation Primary Care Physician: Екатерина Robert MD Provider Information Primary Provider: Arsenio Martin DO [employer] Repairer:Clinton Lucero PA-C The exam and treatment you received in the Emergency Department were for an urgent problem and are not intended as complete care. It is important that you follow up with a doctor, nurse practitioner, or physician?s senior office support assistant sosa for ongoing care. If your symptoms become worse or you do not improve as expected and you are unable to reach your usual health care provider, you should return to the Emergency Department. We are available 24 hours a day. VIVIAN VANN has been given the following list of patient education materials, prescriptions and follow-up instructions: Follow-up Instructions: With: Address: When: Екатерина Robert [address] [place] [address], [facility] [place] [address] Business (1) In 3 days [...] opioids can be used to help relieve dhpfppyc-bu-dugexd pain and are often prescribed following a [...] Safely disp (more content not included)... Normal [facility] EMS Documentationon 08-10-19 23 EMS Documentation Please click on link to see report [id number] CiX5+prnDQolQUJDcGRmI SFkLiD0HRsyEsBvYY7asi 2KVGcAP0AvGPOhNVp1So7 I VKtjNKl8ULZwDQ9VM3pcI Az5MjG5Mn6ZmP3yNPKtzw MxXJWJS88hLrzuDgQhSDc jIZMvWvu0WuHL Jz9uINHvARDnDEAjDEJfB CAgICAgICAgICAgICAgIC AgICAgICAgICAgICAgICA gICAgICAgICAg ICAgICAgICAgICAgICAgI CAgICAgDQplbmRvYmoNCg 9EtJDsJm4ZJrWqEhIAKfO wMDAwMDAwMzIg TDPaPMDsyy7ZPTLuYVVgZ SH8UEOmWRUuZNVqHSdySI CsYRNnYUc8ARRlFNQzPN0 NCjAwMDAwMDE3 BAWiGYGqRMLhsh5MZWQyH DAwMTkzNCAwMDAwMCBuDQ ztDGCwLIFmWFz1FAUdRQX nGA1WZhQtIWVl CAOqOjJmTQVzYZKdst9BG DAwMDAwMjMxNSAwMDAwMC MyQLhrRREcZLEwPti0UWU oEVUtPV2AKuEc NYDbLOG9IXtdOOLbRTZsy t4JBRVyJWEjXavkNPJhJM AwMCBuDQowMDAwMDAzMDY eKUZtBBYgLC2J SyHlOCGhFRM2KMOgRSMoG EOfna8YMNQmRVCgTqGsUx AwMDAwMCBuDQowMDAwMDA aRQN0GVOfIJNd WN8LJhFsRMTwHLSjVTBxP ZMqVLWpdx4ZGVKgWDUvER Q6TgQbXMOuCRDtXSyzTRZ iDGW0CjU0DGIx UKQwLK3FTgKtBUXnUDE6Y QSyVSXsFGEswz4IPSTcHK CkWWN5TSYvXNMyFIKbOMv hMLKhIVJ8RCU3 SUQyHDVbPQ0UBpLtVYVkD KW3BCymIEZlXZIeue5CEJ AwMDAwOTMwMCAwMDAwMCB uDQowMDAwMDQ5 XVylACOhBLItFV5ZYzMyG BRcFJY5OOVyBKOlTNLdkt 8ZeTUrjUafbn6XPBnXY8o FRFy7YVCSXEB7 ZeA2A5S0CzJ1KWyBBVnpX NJ2ODSVWhG7BIS+CjxGRj QfF3JRJUCMYAKkNwagWLI ILGM0GVqtXUo8 FTUfQJ3yQe8MmcS0WOE7I PxjMQyiCx1gsLWmDaSjNK DHE4OadcYzEXuUO6WkkOM rVWPwD2KYMRT5 Oq70YrryyUgXMKS2IJAMX QbeKB2XWwsTCiAaSElwIm 91Y5MMa9Z5CaXrE5FPaAk LjnVBNAltC2gH tFD8n4ypbMcPqVEZyBhwK GdJcndPalFSQUlqUHNXaE 68adpZD4PmOQn2Z2TIHl9 NJTybBgKiiK3N hQrdGKZ8yI9wAHQRPQqCE uesBF9SPMZDIZl3TZq+Pi AgICAgICAgICAgICAgICA gICAgICAgICAg ICAgICAgICAgICAgICAgI CAgICAgICAgICAgICAgIC AgICAgICAgICAgICAgICA gICAgICAgICAg ICAgICAgICAgICAgICAgI CAgICAgICAgICAgICAgIC AgICAgICAgICAgICAgICA gICAgICAgICAg ICAgICAgICAgICAgICAgI CAgICAgICAgICAgICAgIC AgICAgICAgICAgICAgICA gICAgICAgICAg ICAgICAgICAgICAgICAgI CAgICAgICAgICAgICAgIC AgICAgICAgICAgICAgICA gICAgICAgICAg ICAgICAgICAgICAgICAgI CAgICAgICAgICAgICAgIC AgICAgICAgICAgICAgICA gICAgICAgICAg ICAgICAgICAgICAgICAgI CAgICAgICAgICAgICAgIC AgICAgICAgICAgICAgICA gICAgICAgICAg ICAgICAgICAgICAgICAgI CAgICAgICAgICAgICAgIC AgICAgICAgICAgICAgICA gICAgICAgICAg YB6Et6OtyqP7raGgBWusX TbmXZMWWq3IMIkyViQwZC 1wom9YGNyTM35hxEBoGAR hIDIxIDAgUgov T9ZjwkZpbPacyiAgGeVvB OHMDt4UwBPIHYsfW9T2pG njEXSvBZovEDYDIo0VLBt wSD1rMNUoQQCm Jy4eQSrdUQKxSAFgBaKiF SACTj3VlOLsKX2ISLDhjD 9nCj4+DQplbmRvYmoNCg0 KMjQgMCBvYmoN Uyd5Rs7UhMx6DBFgX5ZeW REzOBXsk1UzZc0QPL7dpH jyWZU6Lp2UMQu3Uu7+DQp clVThNM3KHnpq N6BmNYLiLXPtHTQxLFrHc XCgAIUpQLYQVIyLgXHaDQ jzpTYDMsAQZzMCEmJQzMC gTcE6APuMI0Q6 CVuYIdKbc8H8ESsENYBTE nCeKYpBsCnI8rFEoBnPoz I09XI9pNlDFZTjAHHJ3WA khZsZ6ExOYq8I 5H7IYD5nv1BpIUOyULcxe bZrQniTAt0ZHeGfXSOyNl oAUbi3Jg5Ho417CE15vyC bNDIgMCBSXQov MCOvsCEJd0qgEaVvQRU9T GCbIvrsVTevLZIgRN70PC UfLKHiTwjkQoBzh2BtK7X lMDd1In7YG4Dm CWD5MPy4Pe8IBLEsXdAsL sRkRNUTGt2XAs7AN8G2oX UgL8AlH0PQXe5GXcSfND9 bnw1AJNhmFkGm JI7jtc0ELTfWT3CZz7mcM jOqRGD0KGClOgpjPFsdKh qnxDUwHO8EuEU6OGCxG71 lMJfyUJLdH0Ey NVv0Gk1UPFQmoBJpATGgT ZcBT7kOBtpqR4EhNVpOV6 ntImY0YBIcGMVuSep+Pgo +JkkoJ7QqmIok LTOqLm4ckGkjSWsiCWPsP X9npgAvpIq+Px8Xv9OcEM RaIRo4nLHH0ZEg1MTgKYT rMBQ5HUXkkoDZ FXtz7XaYvIAlSjNzuGTzT 7fgHAZf65vQGWZzCjiWx4 kqTxQy8ZcRDY+XW1XZfnX fUlSxou1UAMgv jlEgxYYpWY2XWlNzUD1hb a3UMSezCwJxYQ6crj0IPW hAS9OYXF7Vf1PuJCaBG4O YSEGSO5zOGHMU H2kAVUSOB6mYCFCDK28YP KGHH7HAQIFvsKTYV2MmJJ NMAg1KGeYsWG1guj3FNQu vEAYjPM7vjs5K ZGxXP4UPDG7Av1VeQLoMQ 6ApZITJDc7SAkRiJH4fjk 2XKGrmFICqTQ9onw5GBAh JB4OUCG6Of6Dn ABjKV0WTOJYFB5uFPVQSL 4xAWBGUY4fBQSDZG65OMZ IJC7KWFKNfrNUTF1BmHEP NZw5FNfIlTL3u yh8NEIvcUFLbOG2cjt8ZN HjHJ5Qrs8ABj179WC4XKb dRBE9tS120bsgsjf6ff2G TLUJvbGRNVAov QJNqH2PaBUHnxVTbigGsI KjjNWQsPJRdGy1SipRnMU luZyAvSWRlbnRpdHktSAo uO6EaaJnkEISg RFhoKIGXR3OwDI5cP23bX EPkYiVsHJMTD4K7vKXqE2 EpzxSZUn6TCeVlIG6fxo7 XHZhrKARnTF3x kf8WKIaMK1Kgb1WZp274R P6NZpfTNU9jM924auexoo 8nq2VURJNsmJDXVRpqP9b QQ5sfuGCfZR1p seJ8OLocI9UpFZQtqlnwT AawRP81eBW0JUzsBpAfgJ L3rsxyNYOcx5QxIVjnD9X wcGxlbWVudCAw Cj4+Vj2EVUOYv0mWKW2pe KXtDJNfsySekAxAM0MOIF FAM1SbvsMSSFYslbkpjH6 yIDMyIDAgUgov O4CpwIcnRNQcN7yXVw4kg FK5fYAxLi3VzKRcUA2Qt1 25Xf0MSXctBWihHPFkNR1 jGFn7Bj7RXk3F ZpMvQF1pqy0IYOpzFeItV N8dsx4FOPkCJ3RhS3IpyG C0QzHsLCD9OQRKC2PppMb htZgmvCZ3EDOt Oem7ROdYI8Dys2BgqeBdZ dFsOdO4Ewv9Cp9JiZZubg TeUCosUa9wrQPUv2qnDe8 wQPPuXNa3DSEo OBqpZE44RBhdBgQ8EPTwS yBaCAPqVFMwUK8qXZE4HX 0FI5FeenDDvBjtBhH6WJS eDYUWM0CarxBM IZ0fBI1NFheSZO9wD212x grfhm9ta3UNPKRbtSJQSC oqGBUaxXqwNR8rrPNmYTp oM6VbjVPlVpPg DCsoZQiIX4O2wJBdV6Omp jYIZTIojhyoyE2sIx0+DQ shpdOrLtvBEx5HDiMgWLI yWfyGEqg2Ar8J eEh9ZPJaP4VkWZWdVZEqo 9FxHb2JQA6cpZtnJuF4Nw 4+CQejpRKkVF4THsxvGHF SnhBgLMx2D3pO OwNWVZsYUHshcmKjR6CsK 3l4yJoMlRkg6Z5qpkMIac mgO8fus38F2G8+lMxw5WU HsdJPt1O8e9x4 xYF7JWmqEPq0ArkvVc6c9 BxLoridpwBDY/uRlSXnyV iLLoZPoWAC5aawHPSpNBo qi9e0bAaL30uk vzCADVywquIa+sy87sd3x tUttXbm2Yx8WX7PwHMuo8 nWRoEBgbQoutk0Vixmy0H OOTpNb1JhCJHt /0AzUq033xR7bM4dfdGLJ Ea0jAIODnITtGdm0p8cSk JhGV8ZwN5gWuYP7m1GhiB Zr3p88vQCQ5Jh RvIayawgcodHIYmkChnJi xckc/SaDJ6wd0GqITU+y+ cCzVBzVira6PaoPn3WsaG G26jNGLoJ97/A gF0OCf9yjaanEb5FZR6eq 3RyZWFtDQplbmRvYmoNCg 8BSgPnVRBeVfhZFaq7Ym3 OYQJhPl4bmPQe LdvBATtMR1VtzSEmWIGLA QwLC48NNn8UBLLgSN0fTV 45Jw3ruQAdQaJ7TVLpXn3 HB9SjI67uhZ1o LJ8CGMFmyQh4rO1XHo0Ht DV3lSPdEA7PvYQoGTkzSP 5Gqyjwc7ZkWCI7 (more content not included)... Normal [facility] FT Blood GasesOrdered By: Ra raciel [...] 4.86 mg/dL Normal 4.40 - 5.30 mg/dL [facility] Resp Auto SS cCl- Art 105.0 mmol/L Normal 101.0 - 111.0 mmol/L [facility] Resp Auto SS cGlu Art 117 mg/dL High 55 - 99 mg/dL FT Resp Auto SS cK+ Art 4.0 mmol/L Normal 3.5 - 5.3 mmol/L [facility] Resp Auto SS cLac Art 1.4 mmol/L Normal 0.5 - 2.2 mmol/L [facility] Resp Auto SS apiculture teacher+ Art 142.0 mmol/L Normal 135.0 - 145.0 mmol/L [facility] Resp Auto SS Drawn by RLG Invalid Interpretation Code [facility] Resp Auto SS FCOHb Art 1.0 % Low 1.5 - 4.9 % [facility] Resp Auto SS FIO2 BG 21 Invalid Interpretation Code [facility] Resp Auto SS FMetHb Art 0.5 % Normal 0.0 - 1.9 % [facility] Resp Auto SS FO2Hb Art 92.6 % Normal 92.0 - 100.0 % [facility] Resp Auto SS HCO3 (Bld) [Moles/Vol] 27.1 mmol/L High 22.0 - 26.0 mmol/L [facility] Resp Auto SS Hemoglobin (Bld) [Mass/Vol] 12.5 g/dL Normal 12.0 - 16.0 gm/dL [facility] Resp Auto SS P CO2 Arterial 48.9 mm[Hg] High 35.0 - 45.0 mmHg [facility] Resp Auto SS P O2 Arterial 68.8 mm[Hg] Low 80.0 - 100.0 mmHg [facility] Resp Auto SS pH Arterial 7.383 Normal 7.350 - 7.450 [facility] Resp Auto SS Sample Site R Brachial (08/09/22 2:03 PM) Normal [facility] Resp Auto SS Sample Type Arterial Draw (08/09/22 2:03 PM) Normal [facility] Resp Auto SS HEMATOLOGYOrdered By: SYSTEM SYSTEM on 08-09-2022 Basophils/100 WBC (Bld) 0.5 % Normal 0.0 - 2.0 % [facility] HemeAutoSS Basophils/Leukocytes Auto (Bld) [Pure # fraction] 0.1 E9/L Normal 0.0 - 0.2 E9/L FT HemeAutoSS Eosinophils/100 WBC (Bld) 2.7 % Normal 0.0 - 8.0 % FT HemeAutoSS Eosinophils/Leukocytes Auto (Bld) [Pure # fraction] [...] 238.0 E9/L Normal 150.0 - 500.0 E9/L [facility] HemeAutoSS RBC (Bld) [#/Vol] 4.2 E12/L Low 4.3 - 5.9 E12/L [facility] HemeAutoSS WBC corrected for nucl RBC Auto (Bld) [#/Vol] 16.3 E9/L High 4.0 - 11.0 E9/L [facility] HemeAutoSS Comment on above: Result Comment: Slid e reviewed by TITI. PT & PTTon 08-09-2022 aPTT Coag (PPP) [Time] 31.4 second(s) Normal 25.1-36.5 [facility] Comment on above: Result Comment: Para [...] the same coagulation reagent and instrumentation as [facility]. Currently there are no coagulation studies available worldwide for children to 14 days, and no normal ranges. Heparin therapeutic range (represented by Anti-Factor Xa activity of 0.2 - 0.4 U/mL) corresponds to PTT of 56.6 - 109.0 sec. Performed By: #### 2 [id number], [id number], [id number], 9203581, 02275033, [id number], [id number] ####[facility] [address] [place] [address] INR Coag (PPP) [Relative time] 0.9 {INR} Invalid Interpretation Code [facility] Comment on above: Result Comment: INR results are specifically intended to assess patients stabilized on long-term Anticoagulation therapy suggested INR?s ?Less Intensive Anticoagulation? 2.0 ? 3.0 Conventional Range 3.0 ? 4.5 Performed By: #### 2 [id number], [id number], 04265655, 7677114, [id number], [id number], [id number] ####[facility] [address] [place] [address] PT Coag (PPP) [Time] 10.3 second(s) Normal 9.4-12.5 [facility] Comment on above: Result Comment: 15 [...] the same coagulation reagent and instrumentation as [facility] [place] there are no coagulation studies available worldwide for children to 14 days, and no normal ranges. Performed By: #### 2 [id number], 1446399, [id number], 5065574, 19455566, [id number], [id number] ####[facility] [address] [place] [address] Pre-Arrival Noteon Pre-Arrival Note Pre-Arrival Summary Name: , Current Date: 08/09/2022 13:09:29 EDT Gender: Female Date of : Age: 62 Pre-Arrival Type: EMS ETA: 08/09/2022 13:33:00 EDT Primary Care Physician: Presenting Problem: sob Pre-Arrival User: John Martin Referring Source: [facility] Completion Date/Time: 08/09/2022 13:03:00 [facility] Emergency Department Pre-Hospital Report Form Vital Signs: Pre-Hospital Report: Treatment in Route: Response to Treatment: Misc. Issues: Normal [facility] Troponin 0 Hr.on 08-09-2022 Troponin I.cardiac [Mass/Vol] 4.00 pg/mL Low 10.10-27.10 [facility] Comment on above: Result Comment: The 95% CI (Confidence Interval) PPV (Positive Predictive Value) for myocardial infarction in females is 38 pg/mL, in males 51 pg/mL. The results should be used in conjunction with clinical conditions of myocardial infarction. ([employer] High Sensitivity Troponin I Instructions For Use, [employer], December 2017) Performed By: #### 2 [id number], [id number], 48706143, 0274135, [id number], [id number], [id number] ####[facility] [address] [place] [address] Troponin 3 Hr.on 08-09-2022 Troponin I.cardiac [Mass/Vol] 7.00 pg/mL Low 10.10-27.10 [facility] Comment on above: Result Comment: The 95% CI (Confidence Interval) PPV (Positive Predictive Value) for myocardial infarction in females is 38 pg/mL, in males 51 pg/mL. The results should be used in conjunction with clinical conditions of myocardial infarction. ([employer] High Sensitivity Troponin I Instructions For Use, [employer], December 2017) Performed By: #### 1 [id number] ####[facility] [address] [place] [address] XR Chest Single Viewon 08-09 XR Chest [...] Alvarez MD, V. Transcribed by: SRAVANI Technologist: SRAVANIR Technical Comments Radiation Dose: Ka,r in mGy = na DAP = na Normal [facility] eGFRon 08-09-2022 GFR/1.73 sq M.predicted among blacks MDRD (S/P/Bld) [Vol rate/Area] mL/min/{1.73_m2} Normal >=59 [facility] Comment on above: Order Comment: Order added by Discern Expert. Result Comment: eGFR is race adjusted. AA=. Performed By: #### 2 071915, 9245905, 45922034, 8589710, 07126240, [id number], [id number] ####[facility] [address] [place] [address] GFR/1.73 sq M.predicted among non-blacks MDRD (S/P/Bld) [Vol rate/Area] 50 mL/min/1.73 m2 Low >=59 [facility] Comment on above: Order Comment: Order added by Discern Expert. Result Comment: Store Consultant valeria kidney disease could be indicated at eGFR's of less than 60 mL/min/1.73m2. Kidney failure is indicated at less than 15 mL/min/1.73m2. Performed By: #### 2 [id number], 3316849, 28687692, 0317679, 22520239, 30960845, [id number] ####[facility] [address] [place] [address] CBC W MANUAL DIFFon 08-02-19 23 ATYPICAL LYMPH # Normal [facility] Comment on above: Performed By: #### C ROSARIO ####[facility] [address] [place] [id number]. Rosemarielan Yañez ATYPICAL LYMPH % Normal [facility] Comment on above: Performed By: #### C ROSARIO ####[facility] [address] [place], [place] [address]Fx. Yilan Yañez BAND # 0.9 103/ul Critically high 0.0-0.3 [facility] Comment on above: Performed By: #### C ROSARIO ####[facility] [address] [id number]. Yilan Yañez BAND % 5 % Normal 0-5 The [facility] Comment on above: Performed By: #### C ROSARIO ####[facility] Jkyvedkwol[address] [place] [id number]. Nahed Yañez BASOM # 0.00 103/ul Normal 0.00-0.10 The [facility] Comment on above: Performed By: #### C BCMAN ####[facility] Brnycluqqx[address] [place] [address]Dr. Nahed Yañez BASOM % 0.0 % Critically low 0.2-2.0 The [facility] Comment on above: Performed By: #### C BCMAN ####[facility] Kqxabkdjyh77[address] [place] [address]Dr. Nahed Yañez BLAST # Normal [facility] Comment on above: Performed By: #### C BCISAIAH ####[facility] Yabmihmf[address] [place], [place] [address]Dr. Nahed Yañez BLAST % Normal The [facility] Comment on above: Performed By: #### C BCISAIAH ####[facility] Menvgeihuw[address] [place], [place] [address]Dr. Nahed Yañez CORRECTED WBC Normal 4.0-11.0 The [facility] Comment on above: Performed By: #### C BCISAIAH ####[facility] Ztrpvfqpti[address] [place], [place] [address]Dr. Nahed Yañez EOS # 0.00 103/ul Normal 0.00-0.70 The [facility] Comment on above: Performed By: #### C BCISAIAH ####[facility] Wtrdoccpzh[address] [place], [place] [address]Dr. Nahed Yañez EOS% 0.0 % Critically low 0.9-7.0 The [facility] Comment on above: Performed By: #### C BCISAIAH ####[facility] Psuhnuyddi[address] [place] [address]Dr. Nahed Yañez HCT 39.5 % Normal 36.0-48.0 The [facility] Comment on above: Performed By: #### C BCMAN ####[facility] Ykcmmvwcur[address] [place], [place] [address]Dr. Nahed Yañez HGB 13.0 g/dl Normal 12.0-16.0 The [facility] Comment on above: Performed By: #### Isabell PONCE ####[facility] Oqwelowkiu4[address] [place], [place] [address]Rd. Nahed Yañez LYMPHM # 1.72 103/ul Normal 1.20-3.80 The [facility] Comment on above: Performed By: #### Isabell PONCE ####[facility] Aubbpuisyq[address] [place] [address]Dr. Nahed Yañez LYMPHM% 10.0 % Critically low 20.5-60.0 [facility] Comment on above: Performed By: #### Isabell PONCE ####[facility] Knjmuzzwvf52[address] [place] [address]Dr. Nahed Yañez MCH 28.7 pg Normal 26.7-34.0 [facility] Comment on above: Performed By: #### Isabell PONCE ####[facility] Xlhdbslxgw2282 [place] [address]Dr. Nahed Yañez MCHC 32.9 g/dl Normal 29.9-35.2 [facility] Comment on above: Performed By: #### Isabell PONCE ####[facility] Hcqjvijeor[address] [place] [address]Dr. Nahed Yañez MCV 87.2 fL Normal 81.0-99.0 The [facility] Comment on above: Performed By: #### Isabell PONCE ####[facility] Hxojrwpnto8054 [place] [address]Dr. Nahed Yañez METAMYELOCYTE # Normal The [facility] Comment on above: Performed By: #### Isabell PONCE ####[facility] Tpphyoozwm1169 [place] [address]Dr. Nahed Yañez METAMYELOCYTE % Normal The [facility] Comment on above: Performed By: #### Isabell PONCE ####[facility] Bcswzwvmiv4553 [place] [address]Dr. Nahed Yañez MONOM# 0.86 103/ul Critically high 0.30-0.80 [facility] Comment on above: Performed By: #### Isabell PONCE ####[facility] Dlossjtvui3181 [place] [address]Dr. Nahed Yañez MONOM% 5.0 % Normal 1.7-12.0 [facility] Comment on above: Performed By: #### C ROSARIO ####[facility] Tobvyorgaq5317 [place] [address]Dr. Nahed Yañez MPV 9.8 fL Normal 9.5-13.5 [facility] Comment on above: Performed By: #### C ROSARIO ####[facility] Qzgdjarurf9[address] [place] [address]Dr. Nahed Yañez MYELOCYTE # Normal [facility] Comment on above: Performed By: #### C ROSARIO ####[facility] Kkbsumutkg0549 [place] [address]Dr. Nahed Yañez MYELOCYTE % Normal The [facility] Comment on above: Performed By: #### C ROSARIO ####[facility] Pnrvaujklx1098 [place] [address]Dr. Nahed Yañez NRBC Normal The [facility] Comment on above: Performed By: #### C ROSARIO ####[facility] Hjgxkiesil94[address] [place] [address]Dr. Nahed Yañez PLT 388 103/ul Normal 150-450 The [facility] Comment on above: Performed By: #### C ROSARIO ####[facility] Ffszuavfdj2396 [place] [address]Dr. Nahed Yañez RBC 4.53 106/ul Normal 4.20-5.40 The [facility] Comment on above: Performed By: #### C ROSARIO ####[facility] Orjkkcavzv5[address] [place] [address]Dr. Nahed Yañez RDW 14.4 % Normal 11.0-15.0 The [facility] Comment on above: Performed By: #### C ROSARIO ####[facility] Glirwdiude6386 [place] [address]Dr. Nahed Yañez SEG # 13.76 103/ul Critically high 1.40-6.50 [facility] Comment on above: Performed By: #### C ROSARIO ####[facility] Iipynrsahd[address] [place], [place] [address]Dr. Nahed Yañez SEG % 80.0 % Critically high 43.0-75.0 The [facility] Comment on above: Performed By: #### C BCMAN ####[facility] Gjecvwgvhi028[address] [place] [address]Dr. Nahed Yañez WBC 17.2 103/ul Critically high 4.0-11.0 [facility] Comment on above: Performed By: #### C BCMAN ####[facility] Axosvnuvrp5[address] [place] [address]Dr. Nahed Yañez MAGNESIUMon 08-01-2022 Magnesium [Mass/Vol] 2.0 mg/dL Normal 1.8-2.4 [facility] Comment on above: Performed By: #### MG COLE, CMP ####[facility] Qqxaofmaeb3838 [place] [address]Dr. Nahed Yañez POINT OF CARE GLUCOSEon 07-13 Glucose [Mass/Vol] 267 mg/dL Critically high 74-106 [facility] Comment on above: Performed By: #### P OCGLUC ####[facility] Tcigoltdxs8704 [place] [address]Dr. Nahed Yañez PROF 14(COMP METB)on 023 Albumin [Mass/Vol] 3.4 g/dL Normal 3.4-5.0 [facility] Comment on above: Performed By: #### MG COLE, CMP ####[facility] Wuwxlkdhzf3929 [place] [address]Dr. Nahed Yañez Albumin/Globulin [Mass ratio] 0.9 {ratio} Normal [facility] Comment on above: Performed By: #### MG COLE, CMP ####[facility] Slbcmzspcf1132 [place] [address]Dr. Nahed Yañez ALP [Catalytic activity/Vol] 100 U/L Normal 46-116 [facility] Comment on above: Performed By: #### MG COLE, CMP ####[facility] Gtrfzazfrm8167 [place] [address]Dr. Nahed Yañez ALT [Catalytic activity/Vol] 19 U/L Normal 14-59 [facility] Comment on above: Performed By: #### MG COLE, CMP ####[facility] Yexfetxwtp1863 [place] [address]Dr. Nahed Yañez Anion gap [Moles/Vol] 12.7 mmol/L Normal Th e [facility] Comment on above: Performed By: #### MG COLE, CMP ####[facility] Kpajmbnijz[address] [place], [place] [address]Dr. Nahed Yañez AST [Catalytic activity/Vol] 13 U/L Critically low 15-37 [facility] Comment on above: Performed By: #### MG COLE, CMP ####[facility] Dyaqwfdwps[address] [place], [place] [address]Dr. Nahed Yañez Bilirubin [Mass/Vol] 0.4 mg/dL Normal 0.2-1.0 [facility] Comment on above: Performed By: #### MG COLE, CMP ####[facility] Jwtbeohomv[address] [place], [place] [address]Dr. Nahed Yañez Calcium [Mass/Vol] 9.5 mg/dL Normal 8.5-10.1 [facility] Comment on above: Performed By: #### MG COLE, CMP ####[facility] Hagwbhfyrm[address] [place], [place] [address]Dr. Nahed Yañez Chloride [Moles/Vol] 100 mmol/L Normal 98-107 [facility] Comment on above: Performed By: #### MG COLE, CMP ####[facility] Oytdmazpjm[address] [place], [place] [address]Dr. Nahed Yañez CO2 [Moles/Vol] 27.1 mmol/L Normal 21.0-32.0 The [facility] Comment on above: Performed By: #### MG COLE, CMP ####[facility] Tnvsjoxhrj[address] [place], [place] [address]Dr. Nahed Yañez Creatinine [Mass/Vol] 1.16 mg/dL Critically high 0.55-1.02 [facility] Comment on above: Performed By: #### MG COLE, CMP ####[facility] Nguaftglat2751 [place] [address]Dr. Nahed Yañez EGFR-AF UGANDAN 58 mL/min/1.73m2 Critically low >=60 [facility] Comment on above: Performed By: #### MG COLE, CMP ####[facility] Yaurxnafrb9[address] [place] [address]Dr. Nahed Yañez EGFR-NON AF UGANDAN 47 mL/min/1.73m2 Critically low >=60 [facility] Comment on above: Performed By: #### MG COLE, CMP ####[facility] Lcmiztyvpj7285 [place] [address]Dr. Nahed Yañez Globulin (S) [Mass/Vol] 3.6 g/dL Normal [facility] Comment on above: Performed By: #### MG COLE, CMP ####[facility] Jodatjbbzp[address] [place], [place] [address]Dr. Nahed Yañez Glucose [Mass/Vol] 175 mg/dL Critically high 74-106 [facility] Comment on above: Performed By: #### MG COLE, CMP ####[facility] Gkxmlmakys[address] [place], [place] [address]Dr. Nahed Yañez Potassium [Moles/Vol] 3.8 mmol/L Normal 3.5-5.1 [facility] Comment on above: Performed By: #### MG COLE, CMP ####[facility] Clnkvghpbg[address] [place], [place] [address]Dr. Nahed Yañez Protein [Mass/Vol] 7.0 g/dL Normal 6.4-8.2 [facility] Comment on above: Performed By: #### MG COLE, CMP ####[facility] Ivzvfjkese[address] [place], [place] [address]Dr. Nahed aYñez Sodium [Moles/Vol] 136 mmol/L Normal 136-145 [facility] Comment on above: Performed By: #### MG COLE, CMP ####[facility] Bfuizktovb[address] [place], [place] [address]Dr. Nahed Yañez Urea nitrogen [Mass/Vol] 25.0 mg/dL Critically high 7.0-18.0 The [facility] Comment on above: Performed By: #### MG COLE, CMP ####[facility] Gcvodzcycj[address] [place], [place] [address]Dr. Nahed Yañez Urea nitrogen/Creatinine [Mass ratio] 21.6 mg/mg Normal The [facility] Comment on above: Performed By: #### MG COLE, CMP ####[facility] Bruaooicuw64[address] [place], [place] [address]Dr. Nahed Yañez THEOPHYLLINEon 08-01-2022 THEOPHYLLINE 17.1 ug/mL Normal 10.0-20.0 The [facility] Comment on above: Performed By: #### MG COLE, CMP ####[facility] Ywyksuvzvw[address] [place], [place] [address]Dr. Nahed Yañez CBC AUTO DIFFon 07-31-2022 BASO # 0.0 103/ul Normal 0.0-0.1 The [facility] Comment on above: Performed By: #### C BC ####[facility] Wnsyjvtcdh[address] [place], [place] [address]Dr. Rosemarieashley Yañez Basophils/100 WBC (Bld) 0.2 % Normal 0.2-2.0 The [facility] Comment on above: Performed By: #### C BC ####[facility] Elzkkncwzz[address] [place], [place] [address]Dr. Nahed Yañez EO # 0.0 103/ul Normal 0.0-0.7 The [facility] Comment on above: Performed By: #### C BC ####[facility] Ylakubwlsn[address] [place], [place] [address]Dr. Rosemarieashley Yañez Eosinophils/100 WBC (Bld) 0.0 % Critically low 0.9-7.0 The [facility] Comment on above: Performed By: #### C BC ####[facility] Tzsmlvxidg[address] [place], [place] [address]Dr. Nahed Yañez Erythrocyte distribution width (RBC) [Ratio] 14.2 % Normal 11.0-15.0 The [facility] Comment on above: Performed By: #### C BC ####[facility] Dgugkkovmj0296 [place] [address]Dr. Rosemarieashley Yañez Hematocrit (Bld) [Volume fraction] 36.0 % Normal 36.0-48.0 The [facility] Comment on above: Performed By: #### C BC ####[facility] Tdnehdbjnh4343 [place] [address]Dr. Nahed Yañez Hemoglobin (Bld) [Mass/Vol] 11.4 g/dL Critically low 12.0-16.0 The [facility] Comment on above: Performed By: #### C BC ####[facility] Xfibqwqbrs[address] [place], [place] [address]Dr. Nahed Yañez IG # 0.21 10e3/ul Critically high 0.00-0.03 [facility] Comment on above: Performed By: #### C BC ####[facility] Hjlckqkkuk[address] [place], [place] [address]Dr. Nahed Yañez IG % 1.8 % Critically high 0.0-0.5 The [facility] Comment on above: Performed By: #### C BC ####[facility] Hwuspllcvj[address] [place], [place] [address]Dr. Nahed Yañez LYMPH # 1.3 103/ul Normal 1.2-3.8 The [facility] Comment on above: Performed By: #### C BC ####[facility] Eqibpvxxmp87[address] [place], [place] [address]Dr. Nahed Yañez Lymphocytes/100 WBC (Bld) 11.2 % Critically low 20.5-60.0 The [facility] Comment on above: Performed By: #### C BC ####[facility] Yusfhbtxdn[address] [place], [place] [address]Dr. Nahed Yañez MANUAL DIFF REQ NO Normal The [facility] Comment on above: Performed By: #### C BC ####[facility] Pdnvkwfbvv2[address] [place], [place] [address]Dr. Nahed Yañez MCH (RBC) [Entitic mass] 27.7 pg Normal 26.7-34.0 The [facility] Comment on above: Performed By: #### C BC ####[facility] Urayffddod4727 [place] [address]Dr. Nahed Yañez MCHC (RBC) [Mass/Vol] 31.7 g/dL Normal 29.9-35.2 The [facility] Comment on above: Performed By: #### C BC ####[facility] Vmkckkrcrx0461 [place] [address]Dr. Nahed Yañez MCV (RBC) [Entitic vol] 87.6 fL Normal 81.0-99.0 The [facility] Comment on above: Performed By: #### C BC ####[facility] Lmqzeayzjz[address] [place], [place] [address]Dr. Nahed Yañez MONO # 0.8 103/ul Normal 0.3-0.8 The [facility] Comment on above: Performed By: #### C BC ####[facility] Andnnpyeir99[address] [place], [place] [address]Dr. Nahed Yañez Monocytes/100 WBC (Bld) 7.0 % Normal 1.7-12.0 The [facility] Comment on above: Performed By: #### C BC ####[facility] Daynrsdrad75[address] [place], [place] [address]Dr. Nahed Yañez NEUT # 9.2 103/ul Critically high 1.4-6.5 [facility] Comment on above: Performed By: #### C BC ####[facility] Mwzjollfxu[address] [place], [place] [address]Dr. Nahed Yañez Neutrophils/100 WBC (Bld) 79.8 % Critically high 43.0-75.0 The [facility] Comment on above: Performed By: #### C BC ####[facility] Vdwobrqhpo[address] [place], [place] [address]Dr. Nahed Yañez Platelet mean volume (Bld) [Entitic vol] 9.8 fL Normal 9.5-13.5 The [facility] Comment on above: Performed By: #### C BC ####[facility] Fzdfcrynay[address] [place], [place] [address]Dr. Nahed Yañez PLT 317 103/ul Normal 150-450 The [facility] Comment on above: Performed By: #### C BC ####[facility] Pjjprolinu16[address] [place] [address]Dr. Nahed Yañez RBC 4.11 106/ul Critically low 4.20-5.40 [facility] Comment on above: Performed By: #### C BC ####[facility] Cfggkqlinf5149 [place] [address]Dr. Nahed Yañez WBC 11.5 103/ul Critically high 4.0-11.0 [facility] Comment on above: Performed By: #### C BC ####[facility] Hurbgdcxje7048 [place] [address]Dr. Nahed Yañez MAGNESIUMon 07-31-2022 Magnesium [Mass/Vol] 1.8 mg/dL Normal 1.8-2.4 [facility] Comment on above: Performed By: #### M JUDY Moore, CMP ####[facility] Qecogxomqb8849 [place] [address]Dr. Nahed Yañez POINT OF CARE GLUCOSEon 07-13 Glucose [Mass/Vol] 217 mg/dL Critically high 74-106 [facility] Comment on above: Performed By: #### P OCGLUC ####[facility] Ntdbzlqvud2479 [place] [address]Dr. Nahed Yañez Glucose [Mass/Vol] 169 mg/dL Critically high 74-106 [facility] Comment on above: Performed By: #### P OCGLUC ####[facility] Krdyoohbgj7636 [place] [address]Dr. Nahed Yañez Glucose [Mass/Vol] 297 mg/dL Critically high 74-106 [facility] Comment on above: Performed By: #### P OCGLUC ####[facility] Uccffnhkbv1508 [place] [address]Dr. Nahed Yañez Glucose [Mass/Vol] 233 mg/dL Critically high 74-106 [facility] Comment on above: Performed By: #### P OCGLUC ####[facility] Bkubimhvkm[address] [place] [address]Dr. Nahed Yañez PROF 14(COMP METB)on 023 Albumin [Mass/Vol] 3.0 g/dL Critically low 3.4-5.0 [facility] Comment on above: Performed By: #### JUDY Castro CMP ####[facility] Wabukfswio[address] [place], [place] [address]Dr. Nahed Yañez Albumin/Globulin [Mass ratio] 0.8 {ratio} Normal [facility] Comment on above: Performed By: #### JUDY Castro CMP ####[facility] Zzrnnrynhh[address] [place], [place] [address]Dr. Nahed Yañez ALP [Catalytic activity/Vol] 83 U/L Normal 46-116 [facility] Comment on above: Performed By: #### JUDY Castro CMP ####[facility] Cljyforqlb01[address] [place], [place] [address]Dr. Nahed Yañez ALT [Catalytic activity/Vol] 21 U/L Normal 14-59 [facility] Comment on above: Performed By: #### JUDY Castro CMP ####[facility] Arbcekiyfw[address] [place], [place] [address]Dr. Nahed Yañez Anion gap [Moles/Vol] 14.8 mmol/L Normal [facility] Comment on above: Performed By: #### JUDY Castro CMP ####[facility] Itufznmsat8[address] [place], [place] [address]Dr. Nahed Yañez AST [Catalytic activity/Vol] 13 U/L Critically low 15-37 [facility] Comment on above: Performed By: #### JUDY Castro CMP ####[facility] Koujzalsjp[address] [place], [place] [address]Dr. Nahed Yañez Bilirubin [Mass/Vol] 0.2 mg/dL Normal 0.2-1.0 [facility] Comment on above: Performed By: #### JUDY Castro CMP ####[facility] Dxcaypzqcn[address] [place], [place] [address]Dr. Nahed Yañez Calcium [Mass/Vol] 9.2 mg/dL Normal 8.5-10.1 [facility] Comment on above: Performed By: #### M G, JUDY, CMP ####[facility] Ouihztbauf5673 [place] [address]Dr. Nahed Yañez Chloride [Moles/Vol] 101 mmol/L Normal 98-107 [facility] Comment on above: Performed By: #### JUDY Castro, CMP ####[facility] Vmcohofvno9233 [place] [address]Dr. Rosemarieashley Yañez CO2 [Moles/Vol] 26.5 mmol/L Normal 21.0-32.0 [facility] Comment on above: Performed By: #### JUDY Castro, CMP ####[facility] Abxcmmrvyw6055 [place] [address]Dr. Rosemarieashley Yañez Creatinine [Mass/Vol] 1.04 mg/dL Critically high 0.55-1.02 [facility] Comment on above: Performed By: #### JUDY Castro, CMP ####[facility] Tfbqneojpr[address] [place], [place] [address]Dr. Rosemarieashley Otilio EGFR-AF UGANDAN >60 Normal >=60 [facility] Comment on above: Performed By: #### JUDY Castro, CMP ####[facility] Zndrnzuesm[address] [place], [place] [address]Dr. Rosemarieashley Otilio EGFR-NON AF UGANDAN 54 mL/min/1.73m2 Critically low >=60 [facility] Comment on above: Performed By: #### JUDY Castro, CMP ####[facility] Qgkhfwqcst[address] [place], [place] [address]Dr. Nahed Yañez Globulin (S) [Mass/Vol] 3.6 g/dL Normal [facility] Comment on above: Performed By: #### JUDY Castro, CMP ####[facility] Tvizotztgh0023 [place] [address]Dr. Nahed Yañez Glucose [Mass/Vol] 171 mg/dL Critically high 74-106 [facility] Comment on above: Performed By: #### JUDY Castro, CMP ####[facility] Dmgrwanxyx0736 [place] [address]Dr. Nahed Yañez Potassium [Moles/Vol] 3.3 mmol/L Critically low 3.5-5.1 [facility] Comment on above: Performed By: #### JUDY Castro CMP ####[facility] Jevhxkmapn[address] [place], [place] [address]Dr. Nahed Yañez Protein [Mass/Vol] 6.6 g/dL Normal 6.4-8.2 [facility] Comment on above: Performed By: #### JUDY Castro CMP ####[facility] Nwwpexulta[address] [place], [place] [address]Dr. Nahed Yañez Sodium [Moles/Vol] 139 mmol/L Normal 136-145 [facility] Comment on above: Performed By: #### JUDY Castro CMP ####[facility] Iiqjndkqqh[address] [place], [place] [address]Dr. Nahed Yañez Urea nitrogen [Mass/Vol] 23.0 mg/dL Critically high 7.0-18.0 [facility] Comment on above: Performed By: #### JUDY Castro CMP ####[facility] [address]vrcaqhsmi[address] [place], [place] [address]Dr. Nahed Yañez Urea nitrogen/Creatinine [Mass ratio] 22.1 mg/mg Normal The [facility] [facility] Comment on above: Performed By: #### JUDY Castro CMP ####[facility] [address] [place], [place] [address]Dr. Nahed Yañez THEOPHYLLINEon 07-31-2022 THEOPHYLLINE 14.2 ug/mL Normal 10.0-20.0 [facility] Comment on above: Performed By: #### JUDY Castro CMP ####[facility] Dfrvehrhsi[address] [place], [place] [address]Dr. Nahed Yañez BLOOD CULTURE ID PANELon A. baumannii Not detected Normal NOT DETECTED The [facility] Comment on above: Performed By: #### B CID2 ####[facility] Xkuhnvwq[address] [place], [place] [address]Dr. Nahed Yañez Bacteriodes fragilis Not detected Normal NOT DETECTED The [facility] Comment on above: Performed By: #### B CID2 ####[facility] [address] [place] [id number]. Yilan Yañez BCID CONTROLS PASSED Normal The [facility] Comment on above: Performed By: #### B CID2 ####[facility] Xcwnujvnat8[address] [place] [address]Dr. Yiashley Yañez BCIDBTHD BLOOD CULTURE BOTTLE INFORMATION [facility] Comment on above: Performed By: #### B CID2 ####[facility] Imqufxfwij[address] [place] [address]Dr. Yiashley Yañez BCIDHD1 ANTIMICROBIAL RESISTANCE GENES [facility] Comment on above: Performed By: #### B CID2 ####[facility] Felzbesooj[address] [place] [address]Dr. Yiashley Yañez BCIDHD2 SEE BELOW [facility] Comment on above: Result Comment: Note : Antimicrobial resitance can occur via multiple mechanisms. A Not Detected result for the In[employer] antomicrobial resistance gene assays does not indicate antimicrobial susceptibility. Subculturing is required for species identification and susceptibility testing of isolates. Performed By: #### B CID2 ####[facility] Saltktcbtc[address] [place] [id number]. Yiashley Yañez BCIDHD3 Positive [facility] Comment on above: Performed By: #### B CID2 ####[facility] Jzihgibblx[address] [place] [address]Dr. Yiashley Yañez BCIDHD4 Negative [facility] Comment on above: Performed By: #### B CID2 ####[facility] Vfqmoxolsc75[address] [place] [address]Dr. Yiashley Yañez BCIDHD5 YEAST Normal The [facility] Comment on above: Performed By: #### B CID2 ####[facility] Gxqmgmcpvu[address] [place] [address]Dr. Yilan Yañez Bottle Set: Set 2 [facility] Comment on above: Performed By: #### B CID2 ####[facility] Zhzxesahrb26[address] [place] [address]Dr. Yilan Yañez Bottle: Pediatric Normal [facility] Comment on above: Performed By: #### B CID2 ####[facility] Ayqgivbnwi67[address] [place] [address]Dr. Yilan Yañez C. neoformans/gattii Not detected Normal NOT DETECTED The [facility] Comment on above: Performed By: #### B CID2 ####[facility] Cfzmwwrlrm2598 [place] [address]Dr. Yilan Yañez Sil albicans Not detected Normal NOT DETECTED The [facility] Comment on above: Performed By: #### B CID2 ####[facility] Zvhlimwbff[address] [place] [address]Dr. Yilan Yañez Sil auris Not detected Normal NOT DETECTED The [facility] Comment on above: Performed By: #### B CID2 ####[facility] Lpvlpzxujv[address] [place], [place] [address]Dr. Yilan Yañez Sil glabrata Not detected Normal NOT DETECTED The [facility] Comment on above: Performed By: #### B CID2 ####[facility] Fugqmkdkuo[address] [place], [place] [address]Dr. Yilan Yañez Sil Krusei Not detected Normal NOT DETECTED The [facility] Comment on above: Performed By: #### B CID2 ####[facility] Otaohuzwrj[address] [place], [place] [address]Dr. Yilan Yañez Sil Parapsilosis Not detected Normal NOT DETECTED The [facility] Comment on above: Performed By: #### B CID2 ####[facility] Hgkovbzpvs1462 [place] [address]Dr. Yilan Yañez Sil Tropicalis Not detected Normal NOT DETECTED [facility] Comment on above: Performed By: #### B CID2 ####[facility] Mzciqfqmnx8[address] [place] [id number]. Yiashley Yañez CTX-M Resistant Gene Not Applicable Normal NOT DETECTE D The [facility] Comment on above: Performed By: #### B CID2 ####[facility] Vvhapgfjhr37[address] [place] [address]Dr. Yilan Yañez E. Cloacae complex Not detected Normal NOT DETECTED [facility] Comment on above: Performed By: #### B CID2 ####[facility] Mnwisergif[address] [place], [place] [address]Dr. Nahed Yañez E. faecalis Not detected Normal NOT DETECTED The [facility] Comment on above: Performed By: #### B CID2 ####[facility] Fbojzoecah[address] [place], [place] [address]Dr. Nahed Yañez E. faecium Not detected Normal NOT DETECTED The [facility] Comment on above: Performed By: #### B CID2 ####[facility] Wxatrxvlat[address] [place], [place] [address]Dr. Nahed Yañez Enterobacteriaceae Not detected Normal NOT DETECTED [facility] Comment on above: Performed By: #### B CID2 ####[facility] Elhkimtlum[address] [place], [place] [address]Dr. Nahed Yañez Escherichia coli Not detected Normal NOT DETECTED The [facility] Comment on above: Performed By: #### B CID2 ####[facility] Fvkdwzhpkq12[address] [place], [place] [address]Dr. Rosemarieashley Yañez H. influenzae Not detected Normal NOT DETECTED The [facility] Comment on above: Performed By: #### B CID2 ####[facility] Jkmnnwsnyd[address] [place], [place] [address]Dr. Nahed Yañez IMP Resistant Gene Not Applicable Normal NOT DETECTED The [facility] Comment on above: Performed By: #### B CID2 ####[facility] Kqgiddfkxq[address] [place], [place] [address]Dr. Nahed Yañez K. oxytoca Not detected Normal NOT DETECTED The [facility] Comment on above: Performed By: #### B CID2 ####[facility] Nawjmuwiqs[address] [place], [place] [address]Dr. Nahed Yañez K. pneumoniae Not detected Normal NOT DETECTED The [facility] Comment on above: Performed By: #### B CID2 ####[facility] Leqwomlzdt[address] [place], [place] [address]Dr. Nahed Yañez Klebsiella aerogenes Not detected Normal NOT DETECTED The [facility] Comment on above: Performed By: #### B CID2 ####[facility] Txirbadjah7[address] [place], [place] [address]Dr. Nahed Yañez KPC Resistant Gene Not detected Normal NOT DETECTED [facility] Comment on above: Performed By: #### B CID2 ####[facility] Iuangygkol6702 [place] [address]Dr. Nahed Yañez List. monocytogenes Not detected Normal NOT DETECTED [facility] Comment on above: Performed By: #### B CID2 ####[facility] Ecpxtoxtxb[address] [place], [place] [address]Dr. Nahed Yañez Mcr-1 Resistant Gene Not Applicable Normal NOT DETECTE D [facility] Comment on above: Performed By: #### B CID2 ####[facility] Zgrllbkosp[address] [place], [place] [address]Dr. Nahed Yañez mecA/C Not Applicable Normal NOT DETECTED The [facility] Comment on above: Performed By: #### B CID2 ####[facility] Nhhtkoetzg[address] [place], [place] [address]Dr. Nahed Yañez mecA/C MREJ Not Applicable Normal NOT DETECTED The [facility] Comment on above: Performed By: #### B CID2 ####[facility] Vrsomuifax64[address] [place], [place] [address]Dr. Nahed Yañez N. meningitidis Not detected Normal NOT DETECTED The [facility] Comment on above: Performed By: #### B CID2 ####[facility] Bbdijnaeyl[address] [place], [place] [address]Dr. Nahed Yañez NDM Resistant Gene Not Applicable Normal NOT DETECTED The [facility] Comment on above: Performed By: #### B CID2 ####[facility] Jvuhnbzvgo[address] [place], [place] [address]Dr. Nahed Yañez Oxa-48-like Not Applicable Normal NOT DETECTED The [facility] Comment on above: Performed By: #### B CID2 ####[facility] Mbickhcgcn[address] [place], [place] [address]Dr. Nahed Yañez Proteus Not detected Normal NOT DETECTED The [facility] Comment on above: Performed By: #### B CID2 ####[facility] Ustwkcqunw[address] [place], [place] [address]Dr. Nahed Yañez Pseud. aeruginosa Not detected Normal NOT DETECTED The [facility] Comment on above: Performed By: #### B CID2 ####[facility] Pfloomdtyj16[address] [place] [address]Dr. Nahed Yañez S. maltophilia Not detected Normal NOT DETECTED The [facility] Comment on above: Performed By: #### B CID2 ####[facility] Nadiuckvlw8498 [place] [address]Dr. Nahed Yañez Salmonella Not detected Normal NOT DETECTED The [facility] Comment on above: Performed By: #### B CID2 ####[facility] Wjnkcxzoap[address] [place], [place] [address]Dr. Nahed Yañez Seratia marcescens Not detected Normal NOT DETECTED [facility] Comment on above: Performed By: #### B CID2 ####[facility] Hjqcvitpiw[address] [place], [place] [address]Dr. Nahed Yañez Site: R AC Normal The [facility] Comment on above: Performed By: #### B CID2 ####[facility] Eogvmralrf6527[address] [place], [place] [address]Dr. Nahed Yañez Staph. aureus Not detected Normal NOT DETECTED The [facility] Comment on above: Performed By: #### B CID2 ####[facility] Hfqxyawjwa[address] [place], [place] [address]Dr. Nahed Yañez Staph. epidermidis Not detected Normal NOT DETECTED [facility] Comment on above: Performed By: #### B CID2 ####[facility] Semqziiydg87[address] [place], [place] [address]Dr. Nahed Yañez Staph. lugdunensis Not detected Normal NOT DETECTED [facility] Comment on above: Performed By: #### B CID2 ####[facility] Iqdelugeeu95[address] [place], [place] [address]Dr. Nahed Yañez Staphylococcus Detected Critically abnormal NOT DETECTED The [facility] Comment on above: Performed By: #### B CID2 ####[facility] Tfptvbjbha[address] [place], [place] [address]Dr. Nahed Yañez Strep. agalactiae Not detected Normal NOT DETECTED The [facility] Comment on above: Performed By: #### B CID2 ####[facility] Srnyiwoaze4887 [place] [address]Dr. Nahed Otilio Strep. pneumoniae Not detected Normal NOT DETECTED [facility] Comment on above: Performed By: #### B CID2 ####[facility] Uzosboxpso6298 [place] [address]Dr. Nahed Otilio Strep. pyogenes Not detected Normal NOT DETECTED The [facility] Comment on above: Performed By: #### B CID2 ####[facility] Nmmvfpaxox[address] [place], [place] [address]Dr. Nahed Otilio Streptococcus Not detected Normal NOT DETECTED The [facility] Comment on above: Performed By: #### B CID2 ####[facility] Mkgpjtjpwr6[address] [place], [place] [address]Dr. Nahed Otilio Tucker/B Resist. Gene Not detected Normal NOT DETECTED [facility] Comment on above: Performed By: #### B CID2 ####[facility] Vgxonigwee[address] [place], [place] [address]Dr. Nahed Otilio VIM Resistant Gene Not Applicable Normal NOT DETECTED [facility] Comment on above: Performed By: #### B CID2 ####[facility] Ggpsdokdgl[address] [place], [place] [address]Dr. Rosemarieashley Otilio CARDIAC FRANCISCO 3-6on 3 CK [Catalytic activity/Vol] 25 U/L Critically low 26-192 [facility] Comment on above: Performed By: #### C MREP ####[facility] Egmaatqyog[address] [place], [place] [address]Dr. Nahed Otilio CK.MB [Mass/Vol] ng/mL Normal <=3.60 [facility] Comment on above: Performed By: #### C MREP ####[facility] Emmhcuwznk[address]23[address] [place], [place] [address]Dr. Nahed Otilio HSTROP 35.8 pg/mL Normal 4.0-51.3 [facility] Comment on above: Result Comment: CUT- OFF POINTS HAVE BEEN ESTABLISHED BASED ON THE FOURTH UNIVERSAL DEFINITIONS OF MYOCARDIALINFARCTION. THE UPPER REFERENCE LIMIT (URL) OF TROPONIN, DEFINED THE 99TH PERCENTILE OFcTnI DISTRIBUTION IN A REFERENCE POPULATION, HAS BEEN CONFIRMED THE DECISION THRESHOLDFOR [place] DIAGNOSIS. Performed By: #### C MREP ####[facility] Uacifpjmrn55[address] [place] [address]Dr. Nahed Otilio CK [Catalytic activity/Vol] 28 U/L Normal 26-192 The [facility] Comment on above: Performed By: #### C MREP ####[facility] Oezjbfrfpb7536 [place] [address]Dr. Nahed Yañez CK.MB [Mass/Vol] ng/mL Normal <=3.60 The [facility] Comment on above: Performed By: #### C MREP ####[facility] Eesjnalcrv[address] [place], [place] [address]Dr. Rosemarieashley Yañez HSTROP 36.8 pg/mL Normal 4.0-51.3 The [facility] Comment on above: Result Comment: CUT- OFF POINTS HAVE BEEN ESTABLISHED BASED ON THE FOURTH UNIVERSAL DEFINITIONS OF MYOCARDIALINFARCTION. THE UPPER REFERENCE LIMIT (URL) OF TROPONIN, DEFINED THE 99TH PERCENTILE OFcTnI DISTRIBUTION IN A REFERENCE POPULATION, HAS BEEN CONFIRMED THE DECISION THRESHOLDFOR [place] DIAGNOSIS. Performed By: #### C MREP ####[facility] Nfbfruycwq[address] [place], [place] [address]Dr. Rosemarieashley Yañez CBC AUTO DIFFon 07-30-2022 BASO # 0.0 103/ul Normal 0.0-0.1 The [facility] Comment on above: Performed By: #### C BC ####[facility] Rksdngdymd8[address] [place], [place] [address]Dr. Nahed Yañez Basophils/100 WBC (Bld) 0.1 % Critically low 0.2-2.0 The [facility] Comment on above: Performed By: #### C BC ####[facility] Xzztvbqkdr[address] [place], [place] [address]Dr. Nahed Yañez EO # 0.0 103/ul Normal 0.0-0.7 The [facility] Comment on above: Performed By: #### C BC ####[facility] Ovhcmweaos[address] [place], [place] [address]Dr. Nahed Yañez Eosinophils/100 WBC (Bld) 0.0 % Critically low 0.9-7.0 [facility] Comment on above: Performed By: #### C BC ####[facility] P[address]jmfdxzw[address] [place], [place] [address]DrShaun Yañez Erythrocyte distribution width (RBC) [Ratio] 14.4 % Normal 11.0-15.0 [facility] Comment on above: Performed By: #### C BC ####[facility] Mlieeqktud[address] [place], [place] [address]DrShaun Yañez Hematocrit (Bld) [Volume fraction] 37.7 % Normal 36.0-48.0 The [facility] Comment on above: Performed By: #### C BC ####[facility] Bthqjjzkhb[address] [place], [place] [address]DrShaun Yañez Hemoglobin (Bld) [Mass/Vol] 12.1 g/dL Normal 12.0-16.0 [facility] Comment on above: Performed By: #### C BC ####[facility] Jsbmrrcnzw[address] [place], [place] [address]DrShaun Yañez IG # 0.07 10e3/ul Critically high 0.00-0.03 [facility] Comment on above: Performed By: #### C BC ####[facility] Neanpmnxme[address] [place], [place] [address]DrShaun Yañez IG % 0.5 % Normal 0.0-0.5 [facility] Comment on above: Performed By: #### C BC ####[facility] Hemurarzcg0[address] [place], [place] [address]DrShaun Yañez LYMPH # 1.0 103/ul Critically low 1.2-3.8 The [facility] Comment on above: Performed By: #### C BC ####[facility] Ypagowcghc[address] [place], [place] [address]DrShaun Yañez Lymphocytes/100 WBC (Bld) 7.6 % Critically low 20.5-60.0 The [facility] Comment on above: Performed By: #### C BC ####[facility] Fykrmkrisj[address] [place], [place] [address]DrShaun Yañez MANUAL DIFF REQ NO Normal The [facility] Comment on above: Performed By: #### C BC ####[facility] Hfxgojttlt9945 [place] [address]DrShaun Nahed Otilio MCH (RBC) [Entitic mass] 28.8 pg Normal 26.7-34.0 The [facility] Comment on above: Performed By: #### C BC ####[facility] Sjkawsewln9754 [place] [address]DrShaun Yañez MCHC (RBC) [Mass/Vol] 32.1 g/dL Normal 29.9-35.2 The [facility] Comment on above: Performed By: #### C BC ####[facility] Jzhisoztfa[address] [place], [place] [address]DrShaun Yañez MCV (RBC) [Entitic vol] 89.8 fL Normal 81.0-99.0 The [facility] Comment on above: Performed By: #### C BC ####[facility] Fmkllstzgg[address] [place], [place] [address]DrShaun Yañez MONO # 0.2 103/ul Critically low 0.3-0.8 The [facility] Comment on above: Performed By: #### C BC ####[facility] H[address]zndvwkzl[address] [place], [place] [address]DrShaun Yañez Monocytes/100 WBC (Bld) 1.5 % Critically low 1.7-12.0 The [facility] Comment on above: Performed By: #### C BC ####[facility] Fpghupfjyp[address] [place], [place] [address]DrShaun Yañez NEUT # 11.7 103/ul Critically high 1.4-6.5 The [facility] Comment on above: Performed By: #### C BC ####[facility] Lvzgbozlnv[address] [place], [place] [address]DrShaun Yañez Neutrophils/100 WBC (Bld) 90.3 % Critically high 43.0-75.0 The [facility] Comment on above: Performed By: #### C BC ####[facility] Rwmbvorntj[address] [place], [place] [address]Dr. Nahed Yañez Platelet mean volume (Bld) [Entitic vol] 9.9 fL Normal 9.5-13.5 [facility] Comment on above: Performed By: #### C BC ####[facility] Prdzdehnxf[address] [place] [address]Dr. Nahed Yañez PLT 319 103/ul Normal 150-450 The [facility] Comment on above: Performed By: #### C BC ####[facility] Ajfcwrvygc[address] [place], [place] [address]Dr. Nahed Yañez RBC 4.20 106/ul Normal 4.20-5.40 [facility] Comment on above: Performed By: #### C BC ####[facility] Fyedyisdqb[address] [place], [place] [address]Dr. Nahed Yañez WBC 13.0 103/ul Critically high 4.0-11.0 The [facility] Comment on above: Performed By: #### C BC ####[facility] Hdngpfzdfq[address] [place], [place] [address]Dr. Nahed Yañez CULTURE BLOODon 07-30-2022 Microscopic examination of blood, culture Culture Observations: NO GROWTH AT 5 DAYS. Normal [facility] Comment on above: Performed By: #### B LDCX1 ####[facility] Hdepdbldtm8[address] [place], [place] [address]Dr. Nahed Yañez CULTURE SPUTUMon 07-30-2022 CULTURE SPUTUM Culture Observations : NORMAL RESPIRATORY MIGUEL. Normal The [facility] Comment on above: Performed By: #### S PUTCX ####[facility] Uordflvzho[address] [place], [place] [address]Dr. Nahed Yañez CULTURE URINEon 07-30-2022 CULTURE URINE Culture Observations : MODERATE GROWTH OF MIXED GENITAL MIGUEL. NO POTENTIAL PATHOGENS SEEN. Normal [facility] Comment on above: Performed By: #### U RCX ####[facility] Ifeazxtjbf[address] [place], [place] [address]Dr. Nahed Yañez Covid-19 PCR (CVDTB)on 07-12 SARS-CoV-2 (COVID-19) RNA MIRNA+probe Ql (Unsp spec) Not detected Normal NOT DETECTED The [facility] Comment on above: Result Comment: When [...] for this test is supported by the [employer] of Health and Human Service's declaration that [...] longer be used). Performed By: #### [facility] ####[facility] Lnmdcpzuil[address] [place], [place] [address]Dr. Nahed Yañez ER URINE PROFILEon 3 Bilirubin Ql (U) Negative Normal NEGATIVE [facility] Comment on above: Performed By: #### YARELIS DOVE ####[facility] [address]oheqnyba[address] [place], [place] [address]Dr. Nahed Yañez Clarity (U) CLEAR Normal CLEAR The [facility] Comment on above: Performed By: #### NUNU DOVERO ####[facility] Ffayzsbxbe[address] [place], [place] [address]Dr. Nahed Yañez Color (U) LT. YELLOW Normal YELLOW The [facility] Comment on above: Performed By: #### MYLA DOVEICRO ####[facility] S[address]adymqwc[address] [place], [place] [address]DrShaun Yañez ERUAHD A micrscopic examination will be performed if indicated. Normal The [facility] Comment on above: Performed By: #### NUNU DOVERO ####[facility] X[address]jygbhv[address] [place], [place] [address]DrShaun Yañez Glucose Ql (U) 500 mg/dl Abnormal NEGATIVE The [facility] Comment on above: Performed By: #### NUNU DOVERO ####[facility] [address]qjj[address] [place] [address]Dr. Nahed Yañez Hemoglobin Ql (U) Negative Normal NEGATIVE The [facility] Comment on above: Performed By: #### NUNU DOVERO ####[facility] [address] [place] [address]Dr. Nahed Yañez Ketones Ql (U) Negative Normal NEGATIVE The [facility] Comment on above: Performed By: #### NUNU DOVERO ####[facility] Diwbbmcoyn[address] [place], [place] [address]Dr. Nahed Yañez LEUKOCYTES TRACE Abnormal NEGATIVE [facility] Comment on above: Performed By: #### NUNU DOVERO ####[facility] Ctaepabdkz[address] [place], [place] [address]Dr. Nahed Yañez Nitrite Ql (U) Negative Normal NEGATIVE The [facility] Comment on above: Performed By: #### NUNU DOVERO ####[facility] Sszythlijw[address] [place], [place] [address]Dr. Nahed Yañez pH (U) 6.0 [pH] Normal 5-9 The [facility] Comment on above: Performed By: #### NUNU DOVERO ####[facility] Htfjmwxbdc[address] [place], [place] [address]Dr. Nahed Yañez SPEC GRAVITY >=1.030 Abnormal 1.005-<=1.02 5 The [facility] Comment on above: Performed By: #### NUNU DOVERO ####[facility] Nessbkesvm[address] [place], [place] [address]Dr. Nahed Yañez UA PROTEIN Negative Normal NEGATIVE/ TRACE The [facility] Comment on above: Performed By: #### NUNU DOVERO ####[facility] Gbbwenlaty[address] [place], [place] [address]Dr. Nahed Yañez UR MICRO IND INDICATED Normal The [facility] Comment on above: Performed By: #### NUNU DOVERO ####[facility] [address] [place] [address]Dr. Nahed Yañez Urobilinogen Qn (U) 0.2 {Alem'U}/dL Normal 0.2 - 1. 0 The [facility] Comment on above: Performed By: #### E YARELIS ALCARAZ ####[facility] Dyreodkmir[address] [place], [place] [address]Dr. Nahed Yañez INFLUENZA A AND B AGon 07-30 INFLUANEGH SEE BELOW Normal The [facility] Comment on above: Result Comment: Nega tive for Flu A protein angiten. Infection due to Flu A cannot be ruled out. Flu A angiten in the sample may be below the detection limit of the test. Performed By: #### I NFLUAB ####[facility] Ioj[address] [place] [address]. Nahed Yaeñz INFLUBNEGH SEE BELOW Normal The [facility] Comment on above: Result Comment: Nega tive for Flu B protein antigen. Infection due to Flu B cannot be ruled out. Flu B antigen in the sample may be below the detection limit of the test. Performed By: #### I NFLUAB ####[facility] Sz[address] [place] [address]. Nahed [facility] INFLUENZA A AG Negative Normal NEGATIVE SEE COMMENT The [facility] Comment on above: Performed By: #### I NFLUAB ####[facility] Uqjuosvapf[address] [place], [place] [address]Dr. Nahed [facility] INFLUENZA B AG Negative Normal NEGATIVE SEE COMMENT The [facility] Comment on above: Performed By: #### I NFLUAB ####[facility] Hlykwnhkzk[address] [place], [place] [address]Dr. Nahed Yañez LACTATE/LACTIC ACIDon 2022 Lactate [Moles/Vol] 2.5 mmol/L Critically high 0.4-2.0 [facility] Comment on above: Performed By: #### L ACT ####[facility] Ovmzdmacfl[address] [place], [place] [address]Dr. Nahed Yañez Lactate [Moles/Vol] 3.3 mmol/L Critically high 0.4-2.0 The [facility] Comment on above: Performed By: #### L ACT ####[facility] Uirxeomwqi[address] [place] [address]Dr. Nahed Yañez Lactate [Moles/Vol] 2.7 mmol/L Critically high 0.4-2.0 [facility] Comment on above: Performed By: #### L ACT ####[facility] [address]ye[address]mn[address] [place] [address]Dr. Nahed Yañez Lactate [Moles/Vol] 2.8 mmol/L Critically high 0.4-2.0 [facility] Comment on above: Performed By: #### L ACT ####[facility] Yrcxsixtly[address] [place], [place] [address]Dr. Nahed Yañez MAGNESIUMon 07-30-2022 Magnesium [Mass/Vol] 1.9 mg/dL Normal 1.8-2.4 [facility] Comment on above: Performed By: #### M G, CMP ####[facility] Pohgfhqzrs[address] [place], [place] [address]Dr. Nahed Yañez POINT OF CARE GLUCOSEon 07-12 Glucose [Mass/Vol] 220 mg/dL Critically high 74-106 [facility] Comment on above: Performed By: #### P OCGLUC ####[facility] Ehftjajzct[address] [place], [place] [address]Dr. Nahed Yañez Glucose [Mass/Vol] 162 mg/dL Critically high 74-106 [facility] Comment on above: Result Comment: Kaycee clemons Meter Performed By: #### P OCGLUC ####[facility] Kluoacboqt[address] [place], [place] [address]Dr. Nahed Otilio PROF 14(COMP METB)on 023 Albumin [Mass/Vol] 2.9 g/dL Critically low 3.4-5.0 Th [facility] Comment on above: Performed By: #### M Teresa, CMP ####[facility] Zxmjcgohzs[address] [place], [place] [address]Dr. Nahed Yañez Albumin/Globulin [Mass ratio] 0.8 {ratio} Normal [facility] Comment on above: Performed By: #### M Teresa, CMP ####[facility] Pay[address]qix[address] [place] [address]Dr. Nahed Yañez ALP [Catalytic activity/Vol] 94 U/L Normal 46-116 [facility] Comment on above: Performed By: #### Pablo G, CMP ####[facility] Y[address]kgrif[address] [place] [address]Dr. Nahed Yañez ALT [Catalytic activity/Vol] 22 U/L Normal 14-59 [facility] Comment on above: Performed By: #### Pablo Moore, CMP ####[facility] Aqxyjzsgcl[address] [place] [address]Dr. Nahed Yañez Anion gap [Moles/Vol] 12.4 mmol/L Normal [facility] Comment on above: Performed By: #### Pablo Moore, CMP ####[facility] Azkhigbbgm[address] [place], [place] [address]Dr. Nahed Yañez AST [Catalytic activity/Vol] 18 U/L Normal 15-37 [facility] Comment on above: Performed By: #### Pablo Moore, CMP ####[facility] Oyzkdnphvk[address] [place], [place] [address]Dr. Nahed Yañez Bilirubin [Mass/Vol] 0.1 mg/dL Critically low 0.2-1.0 [facility] Comment on above: Performed By: #### Pablo Moore, CMP ####[facility] Xxs[address]nuo[address] [place] [address]Dr. Nahed Otilio Calcium [Mass/Vol] 8.9 mg/dL Normal 8.5-10.1 [facility] Comment on above: Performed By: #### Pablo Moore, CMP ####[facility] G[address]buqf[address] [place] [address]Dr. Nahed Yañez Chloride [Moles/Vol] 99 mmol/L Normal 98-107 [facility] Comment on above: Performed By: #### Pablo Moore, CMP ####[facility] Curkjyukle[address] [place], [place] [address]Dr. Nahed Yañez CO2 [Moles/Vol] 26.0 mmol/L Normal 21.0-32.0 [facility] Comment on above: Performed By: #### Pablo Moore, CMP ####[facility] Lspkgiiacc[address] [place] [address]Dr. Nahed Otilio Creatinine [Mass/Vol] 1.16 mg/dL Critically high 0.55-1.02 [facility] Comment on above: Performed By: #### M G, CMP ####[facility] N[address]wrxk[address] [place] [address]Dr. Nahed Yañez EGFR-AF UGANDAN 58 mL/min/1.73m2 Critically low >=60 [facility] Comment on above: Performed By: #### M G, CMP ####[facility] I[address]ujfgjgo[address] [place] [address]Dr. Nahed Yañez EGFR-NON AF UGANDAN 47 mL/min/1.73m2 Critically low >=60 [facility] Comment on above: Performed By: #### M G, CMP ####[facility] Nwdaromswt[address] [place], [place] [address]Dr. Nahed Yañez Globulin (S) [Mass/Vol] 3.7 g/dL Normal [facility] Comment on above: Performed By: #### M G, CMP ####[facility] Svguobslau[address] [place], [place] [address]Dr. Nahed Yañez Glucose [Mass/Vol] 267 mg/dL Critically high 74-106 [facility] Comment on above: Performed By: #### M G, CMP ####[facility] X[address]wsbpxleh[address] [place], [place] [address]Dr. Nahed Yañez Potassium [Moles/Vol] 4.4 mmol/L Normal 3.5-5.1 [facility] Comment on above: Performed By: #### M G, CMP ####[facility] Xiduzyoklk[address] [place], [place] [address]Dr. Nahed Yañez Protein [Mass/Vol] 6.6 g/dL Normal 6.4-8.2 The [facility] Comment on above: Performed By: #### M G, CMP ####[facility] Lenduspqch[address] [place], [place] [address]Dr. Nahed Yañez Sodium [Moles/Vol] 133 mmol/L Critically low 136-145 Th e [facility] Comment on above: Performed By: #### M G, CMP ####[facility] O[address]qpfjebk[address] [place], [place] [address]Dr. Rosemarieashley Yañez Urea nitrogen [Mass/Vol] 33.0 mg/dL Critically high 7.0-18.0 The [facility] Comment on above: Performed By: #### M G, CMP ####[facility] Zuuslmzelu[address] [place], [place] [address]Dr. Nahed Yañez Urea nitrogen/Creatinine [Mass ratio] 28.4 mg/mg Normal [facility] Comment on above: Performed By: #### M G, CMP ####[facility] Mdfhsmrbxw[address] [place], [place] [address]Dr. Nahed Yañez SPUTUM GRAM STAINon 07-31-19 COMMENTS Normal [facility] Comment on above: Performed By: #### S PUTGS ####[facility] Uamrjfekit[address] [place], [place] [address]Dr. Nahed Yañez DIPHTHEROIDS Normal The [facility] Comment on above: Performed By: #### S PUTGS ####[facility] Pwuudntlyy[address] [place], [place] [address]Dr. Nahed Yañez EPITHELIALS <25 Normal The [facility] Comment on above: Performed By: #### S PUTGS ####[facility] Nujqjubdly[address] [place], [place] [address]Dr. Nahed Yañez FUNGAL ELEMENTS Normal The [facility] Comment on above: Performed By: #### S PUTGS ####[facility] Bxyxrjffcw[address] [place], [place] [address]Dr. Nahed Yañez GRAM NEG BACILLI Normal The [facility] Comment on above: Performed By: #### S PUTGS ####[facility] Wlwbeanlqc[address] [place], [place] [address]Dr. Nahed Yañez GRAM NEG DIPPLOCOCCI Normal The [facility] Comment on above: Performed By: #### S PUTGS ####[facility] Lupljwazyb[address] [place], [place] [address]Dr. Nahed Yañez GRAM POS BACILLI FEW Normal The [facility] Comment on above: Performed By: #### S PUTTAYLOR ####[facility] X[address]sc[address]zrx[address] [place] [address]Dr. Nahed Yañez GRAM POSITIVE COCCI FEW Normal The [facility] Comment on above: Performed By: #### S VALDEMARGS ####[facility] T[address]jh[address]luwr[address] [place] [address]Dr. Nahed Yañez WBC (Bld) [#/Vol] 10*3/uL Normal The [facility] Comment on above: Performed By: #### S RICKY ####[facility] [address]ztnqdpl[address] [place] [address]Dr. Nahed Yañez URINE MICROSCOPIC ONLYon BACTERIA SMALL Abnormal NONE SEEN The [facility] Comment on above: Performed By: #### YARELIS DOVE ####[facility] Lbhfypkhuk[address] [place], [place] [address]Dr. Nahed Yañez Bacteria identified Cx Nom (U) INDICATED Normal The [facility] Comment on above: Performed By: #### YARELIS DOVE ####[facility] Xcedifufnj[address] [place], [place] [address]Dr. Nahed Yañez CAST NONE SEEN Normal NONE SEEN The [facility] Comment on above: Performed By: #### YARELIS DOVE ####[facility] Cestcjmxnu[address] [place], [place] [address]Dr. Nahed Yañez Crystals LM Nom (Urine sed) NONE SEEN Normal NONE SEEN The [facility] Comment on above: Performed By: #### YARELIS DOVE ####[facility] Cpzytxkmyf[address] [place] [address]Dr. Nahed Yañez Epithelial cells LM Ql (Urine sed) FEW Abnormal NONE SEEN /RARE The [facility] Comment on above: Performed By: #### YARELIS DOVE ####[facility] Zipirptgmf[address] [place], [place] [address]Dr. Nahed Yañez MUCOUS TRACE Abnormal NONE SEEN The [facility] Comment on above: Performed By: #### YARELIS DOVE ####[facility] Tezuwlercz[address] [place], [place] [address]Dr. Nahed Yañez RBC 0-2 Normal 0-2 The [facility] Comment on above: Performed By: #### YARELIS DOVE ####[facility] Asjxhaoryh[address] [place] [address]Dr. Nahed Yañez WBC 0-2 Abnormal NONE SEEN The [facility] Comment on above: Performed By: #### YARELIS DOVE ####[facility] Lckzdbysoe[address] [place] [address]Dr. Nahed Yañez XR CHEST 1 Von 07-30-2022 XR CHEST 1 V Normal The [facility] CARDIAC FRANCISCO ADMITon 023 CK [Catalytic activity/Vol] 59 U/L Normal 26-192 The [facility] Comment on above: Performed By: #### BLADIMIR SINGH ####[facility] Zrpc[address]hdlsa[address] [place] [address]Dr. Nahed Yañez CK.MB [Mass/Vol] 0.59 ng/mL Normal <=3.60 The [facility] Comment on above: Performed By: #### BLADIMIR SINGH ####[facility] Zb[address]yambfe[address] [place] [address]Dr. Nahed Yañez HSTROP 40.7 pg/mL Normal 4.0-51.3 The [facility] Comment on above: Result Comment: CUT- OFF POINTS HAVE BEEN ESTABLISHED BASED ON THE FOURTH UNIVERSAL DEFINITIONS OF MYOCARDIALINFARCTION. THE UPPER REFERENCE LIMIT (URL) OF TROPONIN, DEFINED THE 99TH PERCENTILE OFcTnI DISTRIBUTION IN A REFERENCE POPULATION, HAS BEEN CONFIRMED THE DECISION THRESHOLDFOR [place] DIAGNOSIS. Performed By: #### Isabell AGRAWAL BMP ####[facility] L[address]yryfgem[address] [place] [address]Dr. Nahed Yañez ANDRE 89 ng/mL Critically high 9-82 The [facility] Comment on above: Performed By: #### Isabell AGRAWAL, BMP ####[facility] Vxeuvehdnn[address] [place] [address]Dr. Nahed Yañez CBC AUTO DIFFon 07-29-2022 BASO # 0.0 103/ul Normal 0.0-0.1 The [facility] Comment on above: Performed By: #### C BC ####[facility] Mcldswmynj[address] [place] [address]Dr. Nahed Yañez Basophils/100 WBC (Bld) 0.1 % Critically low 0.2-2.0 The [facility] Comment on above: Performed By: #### C BC ####[facility] Cbzwmripsq[address] [place], [place] [address]Dr. Nahed Yañez EO # 0.0 103/ul Normal 0.0-0.7 The [facility] Comment on above: Performed By: #### C BC ####[facility] Zwugsragyr[address] [place], [place] [address]Dr. Nahed Yañez Eosinophils/100 WBC (Bld) 0.0 % Critically low 0.9-7.0 [facility] Comment on above: Performed By: #### C BC ####[facility] Gfrsmxdfxl[address] [place], [place] [address]Dr. Nahed Yañez Erythrocyte distribution width (RBC) [Ratio] 14.5 % Normal 11.0-15.0 [facility] Comment on above: Performed By: #### C BC ####[facility] Apqpxvbxre[address] [place], [place] [address]Dr. Nahed Yañez Hematocrit (Bld) [Volume fraction] 42.1 % Normal 36.0-48.0 [facility] Comment on above: Performed By: #### C BC ####[facility] Czigjfrxeu[address] [place], [place] [address]Dr. Nahed Yañez Hemoglobin (Bld) [Mass/Vol] 13.4 g/dL Normal 12.0-16.0 The [facility] Comment on above: Performed By: #### C BC ####[facility] Ofjuhqqeti[address] [place], [place] [address]Dr. Nahed Yañez IG # 0.07 10e3/ul Critically high 0.00-0.03 [facility] Comment on above: Performed By: #### C BC ####[facility] Iifywjdtco[address] [place], [place] [address]Dr. Nahed Yañez IG % 0.5 % Normal 0.0-0.5 The [facility] Comment on above: Performed By: #### C BC ####[facility] Cpvffjvglc[address] [place] [address]Dr. Nahed Otilio LYMPH # 3.2 103/ul Normal 1.2-3.8 The [facility] Comment on above: Performed By: #### C BC ####[facility] Phgzvoqbpw[address] [place] [address]Dr. Nahed Otilio Lymphocytes/100 WBC (Bld) 21.2 % Normal 20.5-60.0 The [facility] Comment on above: Performed By: #### C BC ####[facility] Ruok[address]htajk[address] [place] [address]Dr. Rosemarieashley Yañez MANUAL DIFF REQ NO Normal The [facility] Comment on above: Performed By: #### C BC ####[facility] Xaorbrqyyh[address] [place] [address]Dr. Nahed Otilio MCH (RBC) [Entitic mass] 28.1 pg Normal 26.7-34.0 The [facility] Comment on above: Performed By: #### C BC ####[facility] Eyzhukqhrj[address] [place] [address]Dr. Nahed Otilio MCHC (RBC) [Mass/Vol] 31.8 g/dL Normal 29.9-35.2 [facility] Comment on above: Performed By: #### C BC ####[facility] Mdovnzaewr[address] [place] [address]Dr. Nahed Yañez MCV (RBC) [Entitic vol] 88.3 fL Normal 81.0-99.0 The [facility] Comment on above: Performed By: #### C BC ####[facility] Dvktcdnycv[address] [place] [address]Dr. Rosemarieashley Otilio MONO # 1.0 103/ul Critically high 0.3-0.8 The [facility] Comment on above: Performed By: #### C BC ####[facility] Aowjwvrjwe[address] [place] [address]Dr. Nahed Yañez Monocytes/100 WBC (Bld) 6.3 % Normal 1.7-12.0 The [facility] Comment on above: Performed By: #### C BC ####[facility] Oukofiqhml[address] [place] [address]Dr. Nahed Yañez NEUT # 11.0 103/ul Critically high 1.4-6.5 [facility] Comment on above: Performed By: #### C BC ####[facility] Jexpntbbgf7[address] [place] [address]Dr. Nahed Yañez Neutrophils/100 WBC (Bld) 71.9 % Normal 43.0-75.0 [facility] Comment on above: Performed By: #### C BC ####[facility] Bwdbxtuoau[address] [place] [address]Dr. Nahed Yañez Platelet mean volume (Bld) [Entitic vol] 9.9 fL Normal 9.5-13.5 [facility] Comment on above: Performed By: #### C BC ####[facility] Usaavujbts[address] [place] [address]Dr. Rosemarieashley Otilio PLT 385 103/ul Normal 150-450 [facility] Comment on above: Performed By: #### C BC ####[facility] Peatyifrin[address] [place], [place] [address]Dr. Nahed Yañez RBC 4.77 106/ul Normal 4.20-5.40 [facility] Comment on above: Performed By: #### C BC ####[facility] Zhdlgkosil[address] [place], [place] [address]Dr. Nahed Yañez WBC 15.3 103/ul Critically high 4.0-11.0 [facility] Comment on above: Performed By: #### C BC ####[facility] L[address]wlbgrhb[address] [place], [place] [address]Dr. Nahed Yañez PROF CHEM 8 (BAS METB)on Anion gap [Moles/Vol] 13.4 mmol/L Normal [facility] Comment on above: Performed By: #### C MADM, BMP ####[facility] Vkbkulukxe[address] [place] [address]Dr. Nahed Yañez Calcium [Mass/Vol] 9.5 mg/dL Normal 8.5-10.1 [facility] Comment on above: Performed By: #### C ELLAM, BMP ####[facility] Qhyabxmmne[address] [place] [address]Dr. Nahed Yañez Chloride [Moles/Vol] 101 mmol/L Normal 98-107 The [facility] Comment on above: Performed By: #### C ELLAM, BMP ####[facility] Hgnvmljzih[address] [place] [address]Dr. Nahed Yañez CO2 [Moles/Vol] 27.9 mmol/L Normal 21.0-32.0 The [facility] Comment on above: Performed By: #### C NGHIA, BMP ####[facility] Miqnaqjkih[address] [place] [address]Dr. Nahed Yañez Creatinine [Mass/Vol] 0.91 mg/dL Normal 0.55-1.02 The [facility] Comment on above: Performed By: #### C NGHIA, BMP ####[facility] Unutarrwmn[address] [place] [address]Dr. Nahed Yañez EGFR-AF UGANDAN >60 Normal >=60 The [facility] Comment on above: Performed By: #### C NGHIA, BMP ####[facility] Purrmigaaj4[address] [place] [address]Dr. Nahed Yañez EGFR-NON AF UGANDAN >60 Normal >=60 The [facility] Comment on above: Performed By: #### C NGHIA, BMP ####[facility] Ayugrdxypv[address] [place] [address]Dr. Nahed Yañez Glucose [Mass/Vol] 100 mg/dL Normal 74-106 [facility] Comment on above: Performed By: #### C NGHIA, BMP ####[facility] Cabvypxfrg[address] [place] [address]Dr. Nahed Yañez Potassium [Moles/Vol] 4.3 mmol/L Normal 3.5-5.1 The [facility] Comment on above: Result Comment: samp le slightly hemolized Performed By: #### C MADM, BMP ####[facility] Yvkneuievx65[address] [place] [address]Dr. Nahed Yañez Sodium [Moles/Vol] 138 mmol/L Normal 136-145 [facility] Comment on above: Performed By: #### C NGHIA, BLADIMIR ####[facility] [address]uqdegevm[address] [place], [place] [address]Dr. Nahed Yañez Urea nitrogen [Mass/Vol] 34.0 mg/dL Critically high 7.0-18.0 [facility] Comment on above: Performed By: #### C NGHIA, BMP ####[facility] Zizgfhtdti[address] [place], [place] [address]Dr. Nahed Yañez Urea nitrogen/Creatinine [Mass ratio] 37.4 mg/mg Normal The [facility] Comment on above: Performed By: #### C BLADIMIR AGRAWAL ####[facility] Qnmopsyyvl[address] [place], [place] [address]Dr. Nahed Yañez BNPon 07-28-2022 Natriuretic peptide B (Bld) [Mass/Vol] 249.0 pg/mL Normal <=900.0 [facility] Comment on above: Performed By: #### B DIRECTOR OF FIRST IMPRESSIONS ####[facility] Szgqrdcxrd[address] [place], [place] [address]Dr. Nahed Yañez CBC AUTO DIFFon 07-28-2022 BASO # 0.0 103/ul Normal 0.0-0.1 [facility] Comment on above: Performed By: #### C BC ####[facility] Ksjxpgwesu[address] [place], [place] [address]Dr. Nahed Otilio Basophils/100 WBC (Bld) 0.1 % Critically low 0.2-2.0 The [facility] Comment on above: Performed By: #### C BC ####[facility] Srstirwppv[address] [place], [place] [address]Dr. Nahed Yañez EO # 0.0 103/ul Normal 0.0-0.7 The [facility] Comment on above: Performed By: #### C BC ####[facility] Ioszsoweex[address] [place], [place] [address]Dr. Nahed Otilio Eosinophils/100 WBC (Bld) 0.0 % Critically low 0.9-7.0 The [facility] Comment on above: Performed By: #### C BC ####[facility] [address] [place] [address]Dr. Nahed Yañez Erythrocyte distribution width (RBC) [Ratio] 14.3 % Normal 11.0-15.0 [facility] Comment on above: Performed By: #### C BC ####[facility] Yialgahhxj14[address] [place] [address]Dr. Nahed Yañez Hematocrit (Bld) [Volume fraction] 38.7 % Normal 36.0-48.0 [facility] Comment on above: Performed By: #### C BC ####[facility] Stbtgbxkxa27[address] [place] [address]Dr. Nahed Yañez Hemoglobin (Bld) [Mass/Vol] 12.2 g/dL Normal 12.0-16.0 [facility] Comment on above: Performed By: #### C BC ####[facility] Ykwvonthli[address] [place], [place] [address]Dr. Nahed Yañez IG # 0.06 10e3/ul Critically high 0.00-0.03 [facility] Comment on above: Performed By: #### C BC ####[facility] Ylnlomfkpn[address] [place], [place] [address]Dr. Nahed Yañez IG % 0.5 % Normal 0.0-0.5 [facility] Comment on above: Performed By: #### C BC ####[facility] Pbuhtgfdly[address] [place], [place] [address]Dr. Nahed Yañez LYMPH # 0.7 103/ul Critically low 1.2-3.8 The [facility] Comment on above: Performed By: #### C BC ####[facility] Ikuqvbgxtu[address] [place], [place] [address]Dr. Nahed Yañez Lymphocytes/100 WBC (Bld) 5.7 % Critically low 20.5-60.0 [facility] Comment on above: Performed By: #### C BC ####[facility] Qubainlgdm[address] [place], [place] [address]Dr. Nahed Yañez MANUAL DIFF REQ NO Normal [facility] Comment on above: Performed By: #### C BC ####[facility] Zytuxsinek42[address] [place] [address]Dr. Nahed Yañez MCH (RBC) [Entitic mass] 28.2 pg Normal 26.7-34.0 The [facility] Comment on above: Performed By: #### C BC ####[facility] Sqzmjukdwu2741 [place] [address]Dr. Nahed Yañez MCHC (RBC) [Mass/Vol] 31.5 g/dL Normal 29.9-35.2 The [facility] Comment on above: Performed By: #### C BC ####[facility] Sgjwbfdclg3341 [place] [address]Dr. Nahed Yañez MCV (RBC) [Entitic vol] 89.6 fL Normal 81.0-99.0 The [facility] Comment on above: Performed By: #### C BC ####[facility] Kfahiffrcx[address] [place], [place] [address]Dr. Nahed Otilio MONO # 0.3 103/ul Normal 0.3-0.8 The [facility] Comment on above: Performed By: #### C BC ####[facility] Wycngtbkig77[address] [place] [address]Dr. Rosemarieashley Yañez Monocytes/100 WBC (Bld) 2.2 % Normal 1.7-12.0 The [facility] Comment on above: Performed By: #### C BC ####[facility] Pxuxxboypn[address] [place], [place] [address]Dr. Nahed Yañez NEUT # 11.1 103/ul Critically high 1.4-6.5 The [facility] Comment on above: Performed By: #### C BC ####[facility] Djokzsbmzw[address] [place], [place] [address]Dr. Nahed Yañez Neutrophils/100 WBC (Bld) 91.5 % Critically high 43.0-75.0 The [facility] Comment on above: Performed By: #### C BC ####[facility] Asquaihgzn[address] [place], [place] [address]Dr. Nahed Yañez Platelet mean volume (Bld) [Entitic vol] 10.1 fL Normal 9.5-13.5 The [facility] Comment on above: Performed By: #### C BC ####[facility] Uwqvtbfaxb30[address] [place], [place] [address]Go. Nahed Yañez PLT 323 103/ul Normal 150-450 [facility] Comment on above: Performed By: #### C BC ####[facility] Ftjdmsirva0306 [place], [place] [address]Ju. Rosemarieashley Yañez RBC 4.32 106/ul Normal 4.20-5.40 [facility] Comment on above: Performed By: #### C BC ####[facility] Tvzfcruueh16[address] [place] [address]Dr. Nahed Otilio WBC 12.1 103/ul Critically high 4.0-11.0 [facility] Comment on above: Performed By: #### C BC ####[facility] Egtazhfwys7222 [place] [address]Dr. Nahed Yañez POINT OF CARE GLUCOSEon 07-12 Glucose [Mass/Vol] 308 mg/dL Critically high 74-106 [facility] Comment on above: Performed By: #### P OCGLUC ####[facility] Szajdgqtrq6806 [place] [address]Dr. Nahed Yañez Glucose [Mass/Vol] 341 mg/dL Critically high 74-106 [facility] Comment on above: Performed By: #### P OCGLUC ####[facility] Pazlnuuqbw8781 [place] [address]Dr. Nahed Yañez Glucose [Mass/Vol] 320 mg/dL Critically high 74-106 [facility] Comment on above: Performed By: #### P OCGLUC ####[facility] Oaegvwuihn3456 [place] [address]Dr. Nahed Yañez PROF 14(COMP METB)on 023 Albumin [Mass/Vol] 3.0 g/dL Critically low 3.4-5.0 [facility] Comment on above: Performed By: #### C MP ####[facility] Taydcrwwqn5016 [place] [address]Dr. Nahed Yañez Albumin/Globulin [Mass ratio] 0.7 {ratio} Normal [facility] Comment on above: Performed By: #### C MP ####[facility] Ryrkzlqyun9[address] [place] [address]Dr. Nahed Yañez ALP [Catalytic activity/Vol] 93 U/L Normal 46-116 [facility] Comment on above: Performed By: #### C MP ####[facility] Kvdudylujt8974 [place] [address]Dr. Nahed Yañez ALT [Catalytic activity/Vol] 15 U/L Normal 14-59 [facility] Comment on above: Performed By: #### C MP ####[facility] Fztwrmqkzi6540 [place] [address]Dr. Nahed Otilio Anion gap [Moles/Vol] 13.0 mmol/L Normal Th e [facility] Comment on above: Performed By: #### C MP ####[facility] Pacbpkyhif[address] [place], [place] [address]Dr. Nahed Otilio AST [Catalytic activity/Vol] 11 U/L Critically low 15-37 [facility] Comment on above: Performed By: #### C MP ####[facility] Kfwtbnpdla[address] [place], [place] [address]Dr. Nahed Otilio Bilirubin [Mass/Vol] 0.2 mg/dL Normal 0.2-1.0 [facility] Comment on above: Performed By: #### C MP ####[facility] Enqgcvwysj[address] [place], [place] [address]Dr. Nahed Otilio Calcium [Mass/Vol] 9.6 mg/dL Normal 8.5-10.1 [facility] Comment on above: Performed By: #### C MP ####[facility] Eejgbtdgzb4194 [place] [address]Dr. Nahed Otilio Chloride [Moles/Vol] 100 mmol/L Normal 98-107 [facility] Comment on above: Performed By: #### C MP ####[facility] Mjroihfzby0737 [place] [address]Dr. Nahed Yañez CO2 [Moles/Vol] 27.3 mmol/L Normal 21.0-32.0 [facility] Comment on above: Performed By: #### C MP ####[facility] Nijygizpbh5290 [place] [address]Dr. Nahed Yañez Creatinine [Mass/Vol] 1.19 mg/dL Critically high 0.55-1.02 [facility] Comment on above: Performed By: #### C MP ####[facility] Eyijjktuvo034[address] [place] [address]Dr. Nahed Yañez EGFR-AF UGANDAN 56 mL/min/1.73m2 Critically low >=60 [facility] Comment on above: Performed By: #### C MP ####[facility] Qrviemrlti4159 [place] [address]Dr. Nahed Yañez EGFR-NON AF UGANDAN 46 mL/min/1.73m2 Critically low >=60 [facility] Comment on above: Performed By: #### C MP ####[facility] Ngkvgfqams3375 [place] [address]Dr. Nahed Yañez Globulin (S) [Mass/Vol] 4.1 g/dL Normal [facility] Comment on above: Performed By: #### C MP ####[facility] Nnytnpwwlk3077 [place] [address]Dr. Nahed Yañez Glucose [Mass/Vol] 244 mg/dL Critically high 74-106 [facility] Comment on above: Performed By: #### C MP ####[facility] Awcxuojihy2414 [place] [address]Dr. Nahed Yañez Potassium [Moles/Vol] 4.3 mmol/L Normal 3.5-5.1 [facility] Comment on above: Performed By: #### C MP ####[facility] Dokybmrjzo5466 [place] [address]Dr. Nahed Yañez Protein [Mass/Vol] 7.1 g/dL Normal 6.4-8.2 [facility] Comment on above: Performed By: #### C MP ####[facility] Wrxgktgagk1078 [place] [address]Dr. Nahed Yañez Sodium [Moles/Vol] 136 mmol/L Normal 136-145 [facility] Comment on above: Performed By: #### C MP ####[facility] Zmcvsrrzuq66[address] [place], [place] [address]Dr. Nahed Yañez Urea nitrogen [Mass/Vol] 19.0 mg/dL Critically high 7.0-18.0 The [facility] Comment on above: Performed By: #### C MP ####[facility] Jsxuwtonhw4[address] [place], [place] [address]Dr. Nahed Otilio Urea nitrogen/Creatinine [Mass ratio] 16.0 mg/mg Normal The [facility] Comment on above: Performed By: #### C MP ####[facility] Wvqnvsaxgs[address] [place], [place] [address]Dr. Nahed Otilio BNPon 07-27-2022 Natriuretic peptide B (Bld) [Mass/Vol] 1093.0 pg/mL Critically high <=900.0 [facility] Comment on above: Performed By: #### B DIRECTOR OF FIRST IMPRESSIONS ####[facility] Zatcihwquj92[address] [place], [place] [address]Dr. Nahed Otiloi CBC AUTO DIFFon 07-27-2022 BASO # 0.1 103/ul Normal 0.0-0.1 The [facility] Comment on above: Performed By: #### C BC ####[facility] Rlqyoxvtvg0[address] [place], [place] [address]Dr. Nahed Otilio Basophils/100 WBC (Bld) 0.3 % Normal 0.2-2.0 The [facility] Comment on above: Performed By: #### C BC ####[facility] Wyhijlogom[address] [place], [place] [address]Dr. Nahed Yñaez EO # 0.2 103/ul Normal 0.0-0.7 The [facility] Comment on above: Performed By: #### C BC ####[facility] Kyjmkfwrev6[address] [place], [place] [address]Dr. Nahed Otilio Eosinophils/100 WBC (Bld) 1.2 % Normal 0.9-7.0 The [facility] Comment on above: Performed By: #### C BC ####[facility] Txsdtrwcre[address] [place], [place] [address]Dr. Nahed Otilio Erythrocyte distribution width (RBC) [Ratio] 14.1 % Normal 11.0-15.0 [facility] Comment on above: Performed By: #### C BC ####[facility] Yadaxhlacr9305 [place] [address]Dr. Nahed Yañez Hematocrit (Bld) [Volume fraction] 42.2 % Normal 36.0-48.0 [facility] Comment on above: Performed By: #### C BC ####[facility] Mhegjvhdcj0698 [place] [address]Dr. Nahed Yañez Hemoglobin (Bld) [Mass/Vol] 13.6 g/dL Normal 12.0-16.0 [facility] Comment on above: Performed By: #### C BC ####[facility] Axpajokizd[address] [place], [place] [address]Dr. Nahed Yañez IG # 0.09 10e3/ul Critically high 0.00-0.03 [facility] Comment on above: Performed By: #### C BC ####[facility] Eblzctjyju[address] [place], [place] [address]Dr. Nahed aYñez IG % 0.5 % Normal 0.0-0.5 [facility] Comment on above: Performed By: #### C BC ####[facility] Uerfkdtjvr[address] [place], [place] [address]DrShaun Nahed Yañez LYMPH # 1.8 103/ul Normal 1.2-3.8 [facility] Comment on above: Performed By: #### C BC ####[facility] Kmlhpqyuqq[address] [place], [place] [address]DrShaun Yañez Lymphocytes/100 WBC (Bld) 10.2 % Critically low 20.5-60.0 [facility] Comment on above: Performed By: #### C BC ####[facility] Tuljfdtrqm[address] [place], [place] [address]DrShaun Yañez MANUAL DIFF REQ NO Normal [facility] Comment on above: Performed By: #### C BC ####[facility] Tdfflqgcoi[address] [place], [place] [address]Dr. Nahed Yañez MCH (RBC) [Entitic mass] 28.3 pg Normal 26.7-34.0 [facility] Comment on above: Performed By: #### C BC ####[facility] Ndvybztdqm7546 [place] [address]Dr. Nahed Yañez MCHC (RBC) [Mass/Vol] 32.2 g/dL Normal 29.9-35.2 The [facility] Comment on above: Performed By: #### C BC ####[facility] Lvypnpxjft[address] [place], [place] [address]DrShaun Yañez MCV (RBC) [Entitic vol] 87.9 fL Normal 81.0-99.0 The [facility] Comment on above: Performed By: #### C BC ####[facility] Poshtcnvrh[address] [place], [place] [address]Dr. Nahed Yañez MONO # 0.9 103/ul Critically high 0.3-0.8 [facility] Comment on above: Performed By: #### C BC ####[facility] Ryherhemvr22[address] [place], [place] [address]Dr. Nahed Yañez Monocytes/100 WBC (Bld) 5.2 % Normal 1.7-12.0 The [facility] Comment on above: Performed By: #### C BC ####[facility] Srkguvpnys[address] [place], [place] [address]DrShaun Yañez NEUT # 14.4 103/ul Critically high 1.4-6.5 The [facility] Comment on above: Performed By: #### C BC ####[facility] Hsdvaovpwg[address] [place], [place] [address]Dr. Nahed Yañez Neutrophils/100 WBC (Bld) 82.6 % Critically high 43.0-75.0 The [facility] Comment on above: Performed By: #### C BC ####[facility] Igfrqpqfgy045[address] [place], [place] [address]Dr. Nahed Yañez Platelet mean volume (Bld) [Entitic vol] 10.1 fL Normal 9.5-13.5 The [facility] Comment on above: Performed By: #### C BC ####[facility] Wscvwhcxmr6[address] [place], [place] [address]Dr. Nahed Yañez PLT 336 103/ul Normal 150-450 The [facility] Comment on above: Performed By: #### C BC ####[facility] Bufykypeuz9106 [place], [place] [address]Pb. Nahed Yañez RBC 4.80 106/ul Normal 4.20-5.40 The [facility] Comment on above: Performed By: #### C BC ####[facility] Kwniieilxv2366 [place], [place] [address]Iz. Nahed Yañez WBC 17.4 103/ul Critically high 4.0-11.0 The [facility] Comment on above: Performed By: #### C BC ####[facility] Xyvhkcvgoz4565 [place], [place] [address]Ce. Nahed Yañez CTA CHEST WO W CONon 023 CTA CHEST WO W CON Normal [facility] Covid-19 PCR ([facility])on 07-12 SARS-CoV-2 (COVID-19) RNA MIRNA+probe Ql (Unsp spec) Not detected Normal NOT DETECTED The [facility] Comment on above: Result Comment: When [...] for this test is supported by the [employer] of Health and Human Service's declaration [...] be used). Performed By: #### C VDTBH ####[facility] Yqgagsnpum9323 [place], [place] [address]Xh. Nahed Yañez ECHOCARDIO M/2D COMPLETEon 0 07-27-2022 ECHOCARDIO M/2D COMPLETE Normal The [facility] ER URINE PROFILEon Bilirubin Ql (U) Negative Normal NEGATIVE The [facility] Comment on above: Performed By: #### U MICRO, ERUR ####[facility] Wrtubohopm[address] [place], [place] [address]Dr. Nahed Yañez Clarity (U) CLEAR Normal CLEAR The [facility] Comment on above: Performed By: #### U MICRO, ERUR ####[facility] Vizjjujnjq[address] [place], [place] [address]Dr. Nahed Yañez Color (U) LT. YELLOW Normal YELLOW The [facility] Comment on above: Performed By: #### U MICRO, ERUR ####[facility] Qnwxnqtnbg99[address] [place], [place] [address]Dr. Nahed Yañez ERUAHD A micrscopic examination will be performed if indicated. Normal The [facility] Comment on above: Performed By: #### U MICRO, ERUR ####[facility] Kjksobtgod244[address] [place], [place] [address]Dr. Nahed Yañez Glucose Ql (U) >1000 Abnormal NEGATIVE The [facility] Comment on above: Performed By: #### U MICRO, ERUR ####[facility] Ugegspcrmd[address] [place], [place] [address]Dr. Nahed Yañez Hemoglobin Ql (U) TRACE-LYSED Abnormal NEGATIVE [facility] Comment on above: Performed By: #### U MICRO, ERUR ####[facility] Wqnnjwoqcy12[address] [place], [place] [address]Dr. Nahed Yañez Ketones Ql (U) TRACE Abnormal NEGATIVE The [facility] Comment on above: Performed By: #### U MICRO, ERUR ####[facility] Vfsfnczshk388[address] [place], [place] [address]Dr. Nahed Yañez LEUKOCYTES Negative Normal NEGATIVE [facility] Comment on above: Performed By: #### U MICRO, ERUR ####[facility] Sddlcuyklf[address] [place], [place] [address]Dr. Nahed Yañez Nitrite Ql (U) Negative Normal NEGATIVE The [facility] Comment on above: Performed By: #### U MICRO, ERUR ####[facility] Mvblseygxn6694 [place] [address]Dr. Nahed Yañez pH (U) 7.0 [pH] Normal 5-9 [facility] Comment on above: Performed By: #### U MICRO, ERUR ####[facility] Kuqetglxtg5514 [place] [address]Dr. Nahed Yañez SPEC GRAVITY 1.020 Normal 1.005-<=1.02 5 [facility] Comment on above: Performed By: #### U MICRO, ERUR ####[facility] Advssrmpiy[address] [place], [place] [address]Dr. Nahed Yañez UA PROTEIN Negative Normal NEGATIVE/ TRACE [facility] Comment on above: Performed By: #### U MICRO, ERUR ####[facility] Attxxerlji8[address] [place], [place] [address]Dr. Nahed Yañez UR MICRO IND INDICATED Normal [facility] Comment on above: Performed By: #### U MICRO, ERUR ####[facility] Tbddnmewof[address] [place], [place] [address]Dr. Nahed Yañez Urobilinogen Qn (U) 0.2 {Alem'U}/dL Normal 0.2 - 1. 0 [facility] Comment on above: Performed By: #### U MICRO, ERUR ####[facility] Msnycljdct5[address] [place], [place] [address]Dr. Nahed Yañez LIPID PROFILEon 07-27-2022 CHOL-HDL RATIO NORM SEE BELOW Normal [facility] Comment on above: Result Comment: 3.3 - 4.4 LOW RISK 4.4 - 7.1 AVERAGE RISK 7.1 - 11.0 MODERATE RISK >11.0 HIGH RISK Performed By: #### M G, LIPID ####[facility] Rucsngnqcb[address] [place], [place] [address]Dr. Nahed Yañez Cholesterol [Mass/Vol] 181 mg/dL Normal <=200 [facility] Comment on above: Performed By: #### M G, LIPID ####[facility] Aezjwugycx[address] [place], [place] [address]Dr. Nahed Yañez Cholesterol in HDL [Mass/Vol] 87 mg/dL Critically high 40-60 The [facility] Comment on above: Performed By: #### Pablo Moore, LIPID ####[facility] Lzucrjfkvg5742 [place] [address]Dr. Nahed Yañez Cholesterol in LDL [Mass/Vol] 78.6 mg/dL Normal The [facility] Comment on above: Performed By: #### Pablo Moore, LIPID ####[facility] Wvkgvclvcg0256 [place] [address]Dr. Nahed Yañez Cholesterol.total/Chol esterol in HDL [Mass ratio] 2.1 {ratio} Normal [facility] Comment on above: Performed By: #### Pablo Moore, LIPID ####[facility] Ejijpeztdv2346 [place] [address]Dr. Nahed Yañez HDL NORMAL > or = 60 mg/dl - LO W CARDIOVASCULAR RISK <40 mg/dl - HIGH CARDIOVASCULAR RISK Normal [facility] Comment on above: Performed By: #### Pablo Moore, LIPID ####[facility] Lxcxidpqgd1534 [place] [address]Dr. Nahed Yañez LDL CALC NORMAL SEE BELOW Normal [facility] Comment on above: Result Comment: <100 mg/dl OPTIMAL 100 - 129 mg/dl NEAR OR ABOVE OPTIMAL 130 - 159 mg/dl BORDERLINE HIGH 160 - 189 mg/dl HIGH >190 mg/dl VERY HIGH Performed By: #### Pablo Moore, LIPID ####[facility] Jzsdjxqwlm[address] [place] [address]Dr. Nahed Yañez Triglyceride [Mass/Vol] 77 mg/dL Normal <=150 The [facility] Comment on above: Performed By: #### Pablo Moore, LIPID ####[facility] Qdlqsqpqba8387 [place] [address]Dr. Nahed Yañez VLDL CALC 15.4 mg/dL Normal The [facility] Comment on above: Performed By: #### Pablo Moore, LIPID ####[facility] Jskteqqcnp5[address] [place] [address]Dr. Nahed Yañez MAGNESIUMon 07-27-2022 Magnesium [Mass/Vol] 1.7 mg/dL Critically low 1.8-2.4 [facility] Comment on above: Performed By: #### M G, LIPID ####[facility] Tircytecuw[address] [place] [address]Dr. Rosemarieashley Yañez POINT OF CARE GLUCOSEon 07-12 Glucose [Mass/Vol] 276 mg/dL Critically high 74-106 [facility] Comment on above: Performed By: #### P OCGLUC ####[facility] Ranlzaclic[address] [place] [address]Dr. Nahed Yañez Glucose [Mass/Vol] 143 mg/dL Critically high 74-106 [facility] Comment on above: Performed By: #### P OCGLUC ####[facility] Wuaothfrju[address] [place] [address]Dr. Nahed Yañez Glucose [Mass/Vol] 117 mg/dL Critically high 74-106 [facility] Comment on above: Performed By: #### P OCGLUC ####[facility] Jjvxuwychg[address] [place] [address]Dr. Nahed Yañez PROF CHEM 8 (BAS METB)on Anion gap [Moles/Vol] 11.1 mmol/L Normal [facility] Comment on above: Performed By: #### BRYNN Ordonez MPN ####[facility] Lvnehaeqdb[address] [place] [address]Dr. Nahed Yañez Calcium [Mass/Vol] 9.6 mg/dL Normal 8.5-10.1 [facility] Comment on above: Performed By: #### Mery MULLER HSTROPN ####[facility] Cprreeczxf[address] [place] [address]Dr. Nahed Yañez Chloride [Moles/Vol] 99 mmol/L Normal 98-107 [facility] Comment on above: Performed By: #### Mery MULLER HSTROPN ####[facility] Xkoyecagpt[address] [place] [address]Dr. Nahed Yañez CO2 [Moles/Vol] 27.8 mmol/L Normal 21.0-32.0 [facility] Comment on above: Performed By: #### Mery MULLER HSTROPN ####[facility] V[address]sh[address] [place] [id number]. Rosemarieashley Yañez Creatinine [Mass/Vol] 0.90 mg/dL Normal 0.55-1.02 [facility] Comment on above: Performed By: #### B RENZO, HSTROPN ####[facility] Vhlalccift[address] [place] [id number]. Nahed Otilio EGFR-AF UGANDAN >60 Normal >=60 [facility] Comment on above: Performed By: #### B RENZO, HSTROPN ####[facility] Tpanhmchfv[address] [place] [id number]. Nahed Otilio EGFR-NON AF UGANDAN >60 Normal >=60 [facility] Comment on above: Performed By: #### B RENZO, HSTROPN ####[facility] Ioibtlbbxr7[address] [place] [address]Dr. Nahed Yañez Glucose [Mass/Vol] 133 mg/dL Critically high 74-106 [facility] Comment on above: Performed By: #### B RENZO, HSTROPN ####[facility] Iwbmalamys[address] [place] [address]Dr. Nahed Yañez Potassium [Moles/Vol] 3.9 mmol/L Normal 3.5-5.1 [facility] Comment on above: Performed By: #### B RENZO, HSTROPN ####[facility] Myhteqptot[address] [place] [address]Dr. Nahed Yañez Sodium [Moles/Vol] 134 mmol/L Critically low 136-145 [facility] Comment on above: Performed By: #### B RENZO, HSTROPN ####[facility] Navbyqgpbb9[address] [place] [address]Dr. Nahed Yañez Urea nitrogen [Mass/Vol] 9.0 mg/dL Normal 7.0-18.0 [facility] Comment on above: Performed By: #### B RENZO, HSTROPN ####[facility] Lspzkqqblj9[address] [place] [address]Dr. Nahed Yañez Urea nitrogen/Creatinine [Mass ratio] 10.0 mg/mg Normal [facility] Comment on above: Performed By: #### B MP, HSTROPN ####[facility] Uythllwdbn[address] [place] [id number]. Nahed Yañez TROPONIN, HIGH SENSITIVITYon 07-27-2022 HSTROP 40.7 pg/mL Normal 4.0-51.3 [facility] Comment on above: Result Comment: CUT- OFF POINTS HAVE BEEN ESTABLISHED BASED ON THE FOURTH UNIVERSAL DEFINITIONS OF MYOCARDIALINFARCTION. THE UPPER REFERENCE LIMIT (URL) OF TROPONIN, DEFINED THE 99TH PERCENTILE OFcTnI DISTRIBUTION IN A REFERENCE POPULATION, HAS BEEN CONFIRMED THE DECISION THRESHOLDFOR [place] DIAGNOSIS. Performed By: #### H STROPN ####[facility] Qppusgitos[address] [place] [address]Dr. Nahed Yañez HSTROP 42.5 pg/mL Normal 4.0-51.3 [facility] Comment on above: Result Comment: CUT- OFF POINTS HAVE BEEN ESTABLISHED BASED ON THE [facility] UNIVERSAL DEFINITIONS OF MYOCARDIALINFARCTION. THE UPPER REFERENCE LIMIT (URL) OF TROPONIN, DEFINED THE 99TH PERCENTILE OFcTnI DISTRIBUTION IN A REFERENCE POPULATION, HAS BEEN CONFIRMED THE DECISION THRESHOLDFOR [place] DIAGNOSIS. Performed By: #### H STROPN ####[facility] Txrmxqgkfm44[address] [place] [address]Dr. Nahed Yañez HSTROP 50.8 pg/mL Normal 4.0-51.3 The [facility] Comment on above: Result Comment: CUT- OFF POINTS HAVE BEEN ESTABLISHED BASED ON THE [facility] UNIVERSAL DEFINITIONS OF MYOCARDIALINFARCTION. THE UPPER REFERENCE LIMIT (URL) OF TROPONIN, DEFINED THE 99TH PERCENTILE OFcTnI DISTRIBUTION IN A REFERENCE POPULATION, HAS BEEN CONFIRMED THE DECISION THRESHOLDFOR [place] DIAGNOSIS. Performed By: #### H STROPN ####[facility] Wrgidwikvj[address] [place] [id number]. Nahed Yañez HSTROP 46.3 pg/mL Normal 4.0-51.3 The [facility] Comment on above: Result Comment: CUT- OFF POINTS HAVE BEEN ESTABLISHED BASED ON THE FOURTH UNIVERSAL DEFINITIONS OF MYOCARDIALINFARCTION. THE UPPER REFERENCE LIMIT (URL) OF TROPONIN, DEFINED THE 99TH PERCENTILE OFcTnI DISTRIBUTION IN A REFERENCE POPULATION, HAS BEEN CONFIRMED THE DECISION THRESHOLDFOR [place] DIAGNOSIS. Performed By: #### H STROPN, TSH ####[facility] Nefercchwc7[address] [place] [address]Dr. Nahed Yañez HSTROP 54.2 pg/mL Critically high 4.0-51.3 [facility] Comment on above: Result Comment: CUT- OFF POINTS HAVE BEEN ESTABLISHED BASED ON THE FOURTH UNIVERSAL DEFINITIONS OF MYOCARDIALINFARCTION. THE UPPER REFERENCE LIMIT (URL) OF TROPONIN, DEFINED THE 99TH PERCENTILE OFcTnI DISTRIBUTION IN A REFERENCE POPULATION, HAS BEEN CONFIRMED THE DECISION THRESHOLDFOR [place] DIAGNOSIS. Performed By: #### B MP, HSTROPN ####[facility] Hglzwprsik[address] [place], [place] [address]Dr. Nahed Yañez TSHon 07-27-2022 TSH 1.566 uIU/mL Normal 0.358-3.740 [facility] Comment on above: Performed By: #### H STROBINH, TSH ####[facility] Tpioouxpql[address] [place], [place] [address]Dr. Nahed Yañez URINE MICROSCOPIC ONLYon BACTERIA NONE SEEN Normal NONE SEEN The [facility] Comment on above: Performed By: #### U MICRO, ERUR ####[facility] Limnwogmwr[address] [place], [place] [address]Dr. Nahed Yañez Bacteria identified Cx Nom (U) NOT INDICATED Normal The [facility] Comment on above: Performed By: #### U MICRO, ERUR ####[facility] Lkaqsdmrea[address] [place], [place] [address]Dr. Nahed Yañez CAST NONE SEEN Normal NONE SEEN The [facility] Comment on above: Performed By: #### U MICRO, ERUR ####[facility] Euzlczrgbe[address] [place], [place] [address]Dr. Nahed Yañez Crystals LM Nom (Urine sed) NONE SEEN Normal NONE SEEN The [facility] Comment on above: Performed By: #### U MICRO, ERUR ####[facility] Ynwvkwdfoa[address] [place], [place] [address]Dr. Nahed Yañez Epithelial cells LM Ql (Urine sed) FEW Abnormal NONE SEEN /RARE The [facility] Comment on above: Performed By: #### U MICRO, ERUR ####[facility] Qrmktoqpxu16[address] [place] [address]Dr. Nahed Yañez MUCOUS NONE SEEN Normal NONE SEEN The [facility] Comment on above: Performed By: #### U MICRO, ERUR ####[facility] Qbitfzysnq67[address] [place] [address]Dr. Nahed Yañez RBC 0-2 Normal 0-2 The [facility] Comment on above: Performed By: #### U MICRO, ERUR ####[facility] Urgejscaop4[address] [place] [address]Dr. Nahed Yañez WBC NONE SEEN Normal NONE SEEN The [facility] Comment on above: Performed By: #### U MICRO, ERUR ####[facility] Xeksryzqaz[address] [place], [place] [address]Dr. Nahed Yañez XR CHEST 1 Von 07-27-2022 XR CHEST 1 V Normal [facility] INSULINon 05-09-2022 Insulin 21.1 uIU/mL Normal 2.6-24.9 The [facility] Comment on above: Performed By: #### I NSULIN ####[facility] Trfnivjdtc[address] [place], [place] [address]Dr. Nahed Yañez BNPon 05-08-2022 Natriuretic peptide B (Bld) [Mass/Vol] 58.0 pg/mL Normal <=900.0 The [facility] Comment on above: Performed By: #### B DIRECTOR OF FIRST IMPRESSIONS, LIPID, T7, TSH, CMP ####[facility] Uokqtjgtwc[address] [place], [place] [address]Dr. Nahed Yañez CBC AUTO DIFFon 05-08-2022 BASO # 0.0 103/ul Normal 0.0-0.1 The [facility] Comment on above: Performed By: #### C BC ####[facility] Oxgynirrbh[address] [place], [place] [address]Dr. Nahed Yañez Basophils/100 WBC (Bld) 0.4 % Normal 0.2-2.0 The [facility] Comment on above: Performed By: #### C BC ####[facility] Unchibgock[address] [place], [place] [address]Dr. Nahed Yañez EO # 0.3 103/ul Normal 0.0-0.7 The [facility] Comment on above: Performed By: #### C BC ####[facility] Vzmnrjxtkd[address] [place], [place] [address]Dr. Nahed Otilio Eosinophils/100 WBC (Bld) 4.2 % Normal 0.9-7.0 The [facility] Comment on above: Performed By: #### C BC ####[facility] Tkvmgdhvkl[address] [place], [place] [address]Dr. Nahed Yañez Erythrocyte distribution width (RBC) [Ratio] 14.0 % Normal 11.0-15.0 The [facility] Comment on above: Performed By: #### C BC ####[facility] Lgyarjvqiz[address] [place], [place] [address]Dr. Rosemarieashley Yañez Hematocrit (Bld) [Volume fraction] 43.8 % Normal 36.0-48.0 The [facility] Comment on above: Performed By: #### C BC ####[facility] Oveclecoce[address] [place], [place] [address]Dr. Nahed Yañez Hemoglobin (Bld) [Mass/Vol] 13.9 g/dL Normal 12.0-16.0 The [facility] Comment on above: Performed By: #### C BC ####[facility] Uumnknfvqr[address] [place], [place] [address]Dr. Nahed Yañez IG # 0.01 10e3/ul Normal 0.00-0.03 The [facility] Comment on above: Performed By: #### C BC ####[facility] Qacrzgpsym[address] [place], [place] [address]Dr. Nahed Yañez IG % 0.1 % Normal 0.0-0.5 The [facility] Comment on above: Performed By: #### C BC ####[facility] Lrbwvhszmz[address] [place], [place] [address]Dr. Nahed Yañez LYMPH # 2.8 103/ul Normal 1.2-3.8 The [facility] Comment on above: Performed By: #### C BC ####[facility] T[address]hlbylzx[address] [place], [place] [address]Dr. Nahed Yañez Lymphocytes/100 WBC (Bld) 37.6 % Normal 20.5-60.0 The [facility] Comment on above: Performed By: #### C BC ####[facility] Avdzrlujvf[address] [place] [address]DrShaun Yañez MANUAL DIFF REQ NO Normal [facility] Comment on above: Performed By: #### C BC ####[facility] Nfevrclfou9323 [place] [address]Dr. Nahed Yañez MCH (RBC) [Entitic mass] 28.4 pg Normal 26.7-34.0 The [facility] Comment on above: Performed By: #### C BC ####[facility] Rrdkqcipkh[address] [place], [place] [address]Dr. Nahed Yañez MCHC (RBC) [Mass/Vol] 31.7 g/dL Normal 29.9-35.2 The [facility] Comment on above: Performed By: #### C BC ####[facility] Erwwtimpna3[address] [place], [place] [address]Dr. Nahed Yañez MCV (RBC) [Entitic vol] 89.6 fL Normal 81.0-99.0 The [facility] Comment on above: Performed By: #### C BC ####[facility] Zkwledqfsi4[address] [place], [place] [address]DrShaun Yañez MONO # 0.5 103/ul Normal 0.3-0.8 The [facility] Comment on above: Performed By: #### C BC ####[facility] Ndpuhgmarq[address] [place], [place] [address]DrShaun Yañez Monocytes/100 WBC (Bld) 6.8 % Normal 1.7-12.0 The [facility] Comment on above: Performed By: #### C BC ####[facility] Egbsqcunfl65[address] [place], [place] [address]DrShaun Yañez NEUT # 3.7 103/ul Normal 1.4-6.5 The [facility] Comment on above: Performed By: #### C BC ####[facility] Rohnorsogg[address] [place], [place] [address]DrShaun Yañez Neutrophils/100 WBC (Bld) 50.9 % Normal 43.0-75.0 [facility] Comment on above: Performed By: #### C BC ####[facility] Wulccfrwdd[address] [place] [id number]. Nahed Yañez Platelet mean volume (Bld) [Entitic vol] 9.8 fL Normal 9.5-13.5 The [facility] Comment on above: Performed By: #### C BC ####[facility] Lxxuoohbph3329 [place] [address]Dr. Nahed Yañez PLT 306 103/ul Normal 150-450 [facility] Comment on above: Performed By: #### C BC ####[facility] Mjxtjfmcfd[address] [place], [place] [address]Dr. Nahed Yañez RBC 4.89 106/ul Normal 4.20-5.40 The [facility] Comment on above: Performed By: #### C BC ####[facility] Zlqmphrjie[address] [place], [place] [address]Dr. Nahed Yañez WBC 7.3 103/ul Normal 4.0-11.0 The [facility] Comment on above: Performed By: #### C BC ####[facility] Vyrvwfonet[address] [place], [place] [address]Dr. Nahed Yañez FREE THYROXINE INDEX T7on FTI 2.92 Normal 1.30-4.50 The [facility] Comment on above: Performed By: #### B DIRECTOR OF FIRST IMPRESSIONS, LIPID, T7, TSH, CMP ####[facility] Usyzinhmou7[address] [place] [address]Dr. Nahed Yañez T3U 34.0 % Normal 30.0-39.0 The [facility] Comment on above: Performed By: #### B DIRECTOR OF FIRST IMPRESSIONS, LIPID, T7, TSH, CMP ####[facility] Ahvyotncnl[address] [place], [place] [address]Dr. Nahed Yañez T4 [Mass/Vol] 8.60 ug/dL Normal 4.80-13.90 The [facility] Comment on above: Performed By: #### B DIRECTOR OF FIRST IMPRESSIONS, LIPID, T7, TSH, CMP ####[facility] Zdvxzzzcdf6[address] [place] [address]Dr. Nahed Yañez GLYCOHEMOGLOBIN A1Con 2021 ADA RECOMMENDATION SEE BELOW Normal [facility] Comment on above: Result Comment: ADA RECOMMENDED LIMIT 4.0 - 6.0 ADA THERAPEUTIC TARGET < 7.0 ACTION SUGGESTED > 7.0 Performed By: #### A 1C ####[facility] Wlxikiicyn[address] [place] [id number]. Nahed Yañez Glucose [Mass/Vol] 146 mg/dL Normal [facility] Comment on above: Performed By: #### A 1C ####[facility] Eswvdjwmqa4048 [place] [address]Dr. Nahed Yañez HbA1c (Bld) [Mass fraction] 6.7 % Critically high 4.5-6.2 [facility] Comment on above: Performed By: #### A 1C ####[facility] Gpgzbffuay[address] [place], [place] [address]Dr. Nahed Yañez IRONon 05-08-2022 Iron [Mass/Vol] 76.0 ug/dL Normal 50.0-170.0 [facility] Comment on above: Performed By: #### V ITAD, IRON ####[facility] Xvyohfqpjy[address] [place], [place] [address]Dr. Nahed Yañez LIPID PROFILEon 05-08-2022 CHOL-HDL RATIO NORM SEE BELOW Normal [facility] Comment on above: Result Comment: 3.3 - 4.4 LOW RISK 4.4 - 7.1 AVERAGE RISK 7.1 - 11.0 MODERATE RISK >11.0 HIGH RISK Performed By: #### B DIRECTOR OF FIRST IMPRESSIONS, LIPID, T7, TSH, CMP ####[facility] Lexwaxzoyq[address] [place] [id number]. Nahed Yañez Cholesterol [Mass/Vol] 167 mg/dL Normal <=200 [facility] Comment on above: Performed By: #### B DIRECTOR OF FIRST IMPRESSIONS, LIPID, T7, TSH, CMP ####[facility] Xaczpdjiaa7[address] [place] [id number]. Nahed Yañez Cholesterol in HDL [Mass/Vol] 63 mg/dL Critically high 40-60 [facility] Comment on above: Performed By: #### B DIRECTOR OF FIRST IMPRESSIONS, LIPID, T7, TSH, CMP ####[facility] Xgqbvvujpl5743 [place] [id number]. Nahed Yañez Cholesterol in LDL [Mass/Vol] 72.6 mg/dL Normal [facility] Comment on above: Performed By: #### B DIRECTOR OF FIRST IMPRESSIONS, LIPID, T7, TSH, CMP ####[facility] Ztzkhyzfob32[address] [place] [address]Dr. Nahed Yañez Cholesterol.total/Chol esterol in HDL [Mass ratio] 2.7 {ratio} Normal The [facility] Comment on above: Performed By: #### B DIRECTOR OF FIRST IMPRESSIONS, LIPID, T7, TSH, CMP ####[facility] Sakncwflhi[address] [place] [address]Dr. Nahed Yañez HDL NORMAL > or = 60 mg/dl - LO W CARDIOVASCULAR RISK <40 mg/dl - HIGH CARDIOVASCULAR RISK Normal [facility] Comment on above: Performed By: #### B DIRECTOR OF FIRST IMPRESSIONS, LIPID, T7, TSH, CMP ####[facility] Wrkzrjrhvp45[address] [place] [address]Dr. Nahed Yañez LDL CALC NORMAL SEE BELOW Normal [facility] Comment on above: Result Comment: <100 mg/dl OPTIMAL 100 - 129 mg/dl NEAR OR ABOVE OPTIMAL 130 - 159 mg/dl BORDERLINE HIGH 160 - 189 mg/dl HIGH >190 mg/dl VERY HIGH Performed By: #### B DIRECTOR OF FIRST IMPRESSIONS, LIPID, T7, TSH, CMP ####[facility] Zuflbqqyns[address] [place] [address]Dr. Nahed Yañez Triglyceride [Mass/Vol] 157 mg/dL Critically high <=150 The [facility] Comment on above: Performed By: #### B DIRECTOR OF FIRST IMPRESSIONS, LIPID, T7, TSH, CMP ####[facility] Yinkxrghyj95[address] [place] [address]Dr. Nahed Yañez VLDL CALC 31.4 mg/dL Normal [facility] Comment on above: Performed By: #### B DIRECTOR OF FIRST IMPRESSIONS, LIPID, T7, TSH, CMP ####[facility] Ogzfhkorzo[address] [place] [id number]. Nahed Yañez OCC BLD IMMUNO SCREENon 12-2 OCCULT BLOOD Negative Normal NEGATIVE [facility] Comment on above: Performed By: #### O BSCRN ####[facility] Wfssmbroix[address] [place], [place] [address]Dr. Nahed Yañez PROF 14(COMP METB)on 022 Albumin [Mass/Vol] 3.7 g/dL Normal 3.4-5.0 [facility] Comment on above: Performed By: #### B DIRECTOR OF FIRST IMPRESSIONS, LIPID, T7, TSH, CMP ####[facility] Zeisvctkwu[address] [place], [place] [address]Dr. Nahed Yañez Albumin/Globulin [Mass ratio] 0.9 {ratio} Normal [facility] Comment on above: Performed By: #### B DIRECTOR OF FIRST IMPRESSIONS, LIPID, T7, TSH, CMP ####[facility] Tptedmytsd[address] [place], [place] [address]Dr. Nahed Yañez ALP [Catalytic activity/Vol] 99 U/L Normal 46-116 [facility] Comment on above: Performed By: #### B DIRECTOR OF FIRST IMPRESSIONS, LIPID, T7, TSH, CMP ####[facility] Wmdtexfjov[address] [place], [place] [address]Dr. Nahed Yañez ALT [Catalytic activity/Vol] 20 U/L Normal 14-59 [facility] Comment on above: Performed By: #### B DIRECTOR OF FIRST IMPRESSIONS, LIPID, T7, TSH, CMP ####[facility] Jrxaoaqpci[address] [place], [place] [address]Dr. Nahed Yañez Anion gap [Moles/Vol] 10.6 mmol/L Normal [facility] Comment on above: Performed By: #### B DIRECTOR OF FIRST IMPRESSIONS, LIPID, T7, TSH, CMP ####[facility] Uskpzdyrhx[address] [place], [place] [address]Dr. Nahed Yañez AST [Catalytic activity/Vol] 29 U/L Normal 15-37 [facility] Comment on above: Performed By: #### B DIRECTOR OF FIRST IMPRESSIONS, LIPID, T7, TSH, CMP ####[facility] Hwcltnflvt[address] [place], [place] [address]Dr. Nahed Yañez Bilirubin [Mass/Vol] 0.4 mg/dL Normal 0.2-1.0 [facility] Comment on above: Performed By: #### B DIRECTOR OF FIRST IMPRESSIONS, LIPID, T7, TSH, CMP ####[facility] Xzhptwvgsl5[address] [place] [address]Dr. Nahed Yañez Calcium [Mass/Vol] 9.3 mg/dL Normal 8.5-10.1 [facility] Comment on above: Performed By: #### B DIRECTOR OF FIRST IMPRESSIONS, LIPID, T7, TSH, CMP ####[facility] Qtxgnnmhkf7[address] [place] [address]Dr. Nahed Yañez Chloride [Moles/Vol] 100 mmol/L Normal 98-107 [facility] Comment on above: Performed By: #### B DIRECTOR OF FIRST IMPRESSIONS, LIPID, T7, TSH, CMP ####[facility] Bhgstphjxv[address] [place], [place] [address]Dr. Nahed Yañez CO2 [Moles/Vol] 31.4 mmol/L Normal 21.0-32.0 [facility] Comment on above: Performed By: #### B DIRECTOR OF FIRST IMPRESSIONS, LIPID, T7, TSH, CMP ####[facility] Alsypvbnag[address] [place], [place] [address]Dr. Nahed Yañez Creatinine [Mass/Vol] 1.01 mg/dL Normal 0.55-1.02 [facility] Comment on above: Performed By: #### B DIRECTOR OF FIRST IMPRESSIONS, LIPID, T7, TSH, CMP ####[facility] [address]cdcgsxlr[address] [place], [place] [address]Dr. Nahed Yañez EGFR-AF UGANDAN >60 Normal >=60 [facility] Comment on above: Performed By: #### B DIRECTOR OF FIRST IMPRESSIONS, LIPID, T7, TSH, CMP ####[facility] Ycbihbnkte[address] [place], [place] [address]Dr. Nahed Yañez EGFR-NON AF UGANDAN 56 mL/min/1.73m2 Critically low >=60 [facility] Comment on above: Performed By: #### B DIRECTOR OF FIRST IMPRESSIONS, LIPID, T7, TSH, CMP ####[facility] Kktxsnyruf[address] [place], [place] [address]Dr. Nahed Yañez Globulin (S) [Mass/Vol] 3.9 g/dL Normal The [facility] Comment on above: Performed By: #### B DIRECTOR OF FIRST IMPRESSIONS, LIPID, T7, TSH, CMP ####[facility] Bvkxwhnmyp[address] [place] [address]Dr. Nahed Yañez Glucose [Mass/Vol] 111 mg/dL Critically high 74-106 T [facility] Comment on above: Performed By: #### B DIRECTOR OF FIRST IMPRESSIONS, LIPID, T7, TSH, CMP ####[facility] Gcpnboxkrv1174 [place] [address]Dr. Nahed Yañez Potassium [Moles/Vol] 4.0 mmol/L Normal 3.5-5.1 [facility] Comment on above: Performed By: #### B DIRECTOR OF FIRST IMPRESSIONS, LIPID, T7, TSH, CMP ####[facility] Faqrdyoddj9287 [place] [address]Dr. Nahed Yañez Protein [Mass/Vol] 7.6 g/dL Normal 6.4-8.2 [facility] Comment on above: Performed By: #### B DIRECTOR OF FIRST IMPRESSIONS, LIPID, T7, TSH, CMP ####[facility] Triiwaac[address] [place], [place] [address]Dr. Nahed Yañez Sodium [Moles/Vol] 138 mmol/L Normal 136-145 [facility] Comment on above: Performed By: #### B DIRECTOR OF FIRST IMPRESSIONS, LIPID, T7, TSH, CMP ####[facility] Nrf[address] [place], [place] [address]Dr. Nahed Yañez Urea nitrogen [Mass/Vol] 17.0 mg/dL Normal 7.0-18.0 The [facility] Comment on above: Performed By: #### B DIRECTOR OF FIRST IMPRESSIONS, LIPID, T7, TSH, CMP ####[facility] Roorwbhnlr[address] [place], [place] [address]Dr. Nahed Yañez Urea nitrogen/Creatinine [Mass ratio] 16.8 mg/mg Normal The [facility] Comment on above: Performed By: #### B DIRECTOR OF FIRST IMPRESSIONS, LIPID, T7, TSH, CMP ####[facility] Xwpzcufz[address] [place], [place] [address]Dr. Nahed Yañez TSHon 05-08-2022 TSH 2.835 uIU/mL Normal 0.358-3.740 [facility] Comment on above: Performed By: #### B DIRECTOR OF FIRST IMPRESSIONS, LIPID, T7, TSH, CMP ####[facility] Wnpvbxnmlg0948 [place] [id number]. Nahed Yañez VITAMIN D 25 OHon 05-08-2022 VIT D 25-OH 13.4 ng/mL Normal [facility] Comment on above: Performed By: #### V GRAEME, IRON ####[facility] Xqrpaummjs9017 [place] [id number]. Nahed Yañez VIT D RANGES SEE BELOW Normal [facility] Comment on above: Result Comment: <20 ng/mL Vit D deficient 20 - <30 ng/mL Vit D insufficient 30 - 100 ng/mL Vit D sufficient >100 ng/mL Potential Toxicity Performed By: #### Bianca BEDOLLA IRON ####[facility] Ukxnjjmlbs5188 [place] [address]Dr. Nahed Yañez CARDIAC FRANCISCO 3-6on 2 CK [Catalytic activity/Vol] 37 U/L Normal 26-192 [facility] Comment on above: Performed By: #### C MREP ####[facility] [address] [place], [place] [address]Dr. Rosemarieashley Yañez CK.MB [Mass/Vol] 0.79 ng/mL Normal <=3.60 The [facility] Comment on above: Performed By: #### C MREP ####[facility] Yyuileilrv[address] [place], [place] [address]Dr. Nahed Yañez HSTROP 55.3 pg/mL Critically high 4.0-51.3 [facility] Comment on above: Result Comment: CUT- OFF POINTS HAVE BEEN ESTABLISHED BASED ON THE FOURTH UNIVERSAL DEFINITIONS OF MYOCARDIALINFARCTION. THE UPPER REFERENCE LIMIT (URL) OF TROPONIN, DEFINED THE 99TH PERCENTILE OFcTnI DISTRIBUTION IN A REFERENCE POPULATION, HAS BEEN CONFIRMED THE DECISION THRESHOLDFOR [place] DIAGNOSIS. Performed By: #### C MREP ####[facility] Uztgakzakw5662 [place] [address]Dr. Nahed Yañez CK [Catalytic activity/Vol] 49 U/L Normal 26-192 The [facility] Comment on above: Performed By: #### C MREP ####[facility] [address]ib[address]dp[address] [place], [place] [address]Xg. Nahed Yañez CK.MB [Mass/Vol] 0.71 ng/mL Normal <=3.60 [facility] Comment on above: Performed By: #### C MREP ####[facility] Zmrfsweium029[address] [place], [place] [address]Vh. Nahed Yañez HSTROP 62.6 pg/mL Critically high 4.0-51.3 [facility] Comment on above: Result Comment: CUT- OFF POINTS HAVE BEEN ESTABLISHED BASED ON THE FOURTH UNIVERSAL DEFINITIONS OF MYOCARDIALINFARCTION. THE UPPER REFERENCE LIMIT (URL) OF TROPONIN, DEFINED THE 99TH PERCENTILE OFcTnI DISTRIBUTION IN A REFERENCE POPULATION, HAS BEEN CONFIRMED THE DECISION THRESHOLDFOR [place] DIAGNOSIS. Performed By: #### C MREP ####[facility] Spjynahgmd87[address] [place], [place] [address]Vj. Nahed Yañez Covid-19 PCR (CVDTB)on 01-13 SARS-CoV-2 (COVID-19) RNA MIRNA+probe Ql (Unsp spec) Not detected Normal NOT DETECTED The [facility] Comment on above: Result Comment: When [...] for this test is supported by the [employer] of Health and Human Service's declaration [...] be used). Performed By: #### C VDTBH ####[facility] Xlltroznjh00[address] [place], [place] [address]So. Nahed Otilio ECHO LIMITED STUDYon 09-20-2 022 ECHO LIMITED STUDY Normal [facility] GLYCOHEMOGLOBIN A1Con 2021 ADA RECOMMENDATION SEE BELOW Normal [facility] Comment on above: Result Comment: ADA RECOMMENDED LIMIT 4.0 - 6.0 ADA THERAPEUTIC TARGET < 7.0 ACTION SUGGESTED > 7.0 Performed By: #### A 1C ####[facility] Tmknwkjiwz4818 [place] [id number]. Nahed Yañez Glucose [Mass/Vol] 140 mg/dL Normal [facility] Comment on above: Performed By: #### A 1C ####[facility] Xnakowsinu8891 [place] [address]Dr. Nahed Yañez HbA1c (Bld) [Mass fraction] 6.5 % Critically high 4.5-6.2 [facility] Comment on above: Performed By: #### A 1C ####[facility] N[address]bl[address] [place], [place] [address]Dr. Nahed Yañez LIPID PROFILEon 01-31-2022 CHOL-HDL RATIO NORM SEE BELOW Normal [facility] Comment on above: Result Comment: 3.3 - 4.4 LOW RISK 4.4 - 7.1 AVERAGE RISK 7.1 - 11.0 MODERATE RISK >11.0 HIGH RISK Performed By: #### L IPID ####[facility] N[address] [place], [place] [address]Dr. Nahed Yañez Cholesterol [Mass/Vol] 152 mg/dL Normal <=200 [facility] Comment on above: Performed By: #### L IPID ####[facility] Dclebgnblr2924 [place] [address]Dr. Nahed Yañez Cholesterol in HDL [Mass/Vol] 74 mg/dL Critically high 40-60 [facility] Comment on above: Performed By: #### L IPID ####[facility] Ofpszunsby1435 [place] [address]Dr. Rosemarieashlye Yañez Cholesterol in LDL [Mass/Vol] 62.8 mg/dL Normal [facility] Comment on above: Performed By: #### L IPID ####[facility] Nzvyrvyvli5797 [place] [address]Dr. Nahed Yañez Cholesterol.total/Chol esterol in HDL [Mass ratio] 2.1 {ratio} Normal The [facility] Comment on above: Performed By: #### L IPID ####[facility] Ypxuqeygky7804 [place] [address]Dr. Nahed Yañez HDL NORMAL > or = 60 mg/dl - LO W CARDIOVASCULAR RISK <40 mg/dl - HIGH CARDIOVASCULAR RISK Normal The [facility] Comment on above: Performed By: #### L IPID ####[facility] Eeoeqvpvzw4475 [place] [address]Dr. Rosemarieashley Yañez LDL CALC NORMAL SEE BELOW Normal [facility] Comment on above: Result Comment: <100 mg/dl OPTIMAL 100 - 129 mg/dl NEAR OR ABOVE OPTIMAL 130 - 159 mg/dl BORDERLINE HIGH 160 - 189 mg/dl HIGH >190 mg/dl VERY HIGH Performed By: #### L IPID ####[facility] Xgkoyxxenw1936 [place] [address]Dr. Nahed Yañez Triglyceride [Mass/Vol] 76 mg/dL Normal <=150 The [facility] Comment on above: Performed By: #### L IPID ####[facility] Qohhtqaftu1014 [place] [address]Dr. Rosemarieashley Otilio VLDL CALC 15.2 mg/dL Normal The [facility] Comment on above: Performed By: #### L IPID ####[facility] Bbydklmpmk8581 [place] [address]Dr. Nahed Yañez XR CHEST 1 Von 01-31-2022 XR CHEST 1 V Normal The [facility] BNPon 01-30-2022 Natriuretic peptide B (Bld) [Mass/Vol] 150.0 pg/mL Normal <=900.0 The [facility] Comment on above: Performed By: #### B MP, BNP, CMADM ####[facility] Dyrwrkozmt7229 [place] [address]Dr. Nahed Yañez CARDIAC FRANCISCO ADMITon 022 CK [Catalytic activity/Vol] 88 U/L Normal 26-192 The [facility] Comment on above: Performed By: #### B MP, BNP, CMADM ####[facility] Kpmewyzroo4884 [place] [address]Dr. Nahed Yañez CK.MB [Mass/Vol] 1.26 ng/mL Normal <=3.60 [facility] Comment on above: Performed By: #### B MP, BNP, CMADM ####[facility] Cbxsmcjlxw9230 [place] [address]Dr. Nahed Yaeñz HSTROP 69.3 pg/mL Critically high 4.0-51.3 The [facility] Comment on above: Result Comment: CUT- OFF POINTS HAVE BEEN ESTABLISHED BASED ON THE FOURTH UNIVERSAL DEFINITIONS OF MYOCARDIALINFARCTION. THE UPPER REFERENCE LIMIT (URL) OF TROPONIN, DEFINED THE 99TH PERCENTILE OFcTnI DISTRIBUTION IN A REFERENCE POPULATION, HAS BEEN CONFIRMED THE DECISION THRESHOLDFOR [place] DIAGNOSIS. Performed By: #### B MP, BNP, CMADM ####[facility] Vovbdksdnb[address] [place], [place] [address]Dr. Nahed Yañez ANDRE 59 ng/mL Normal 9-82 The [facility] Comment on above: Performed By: #### B MP, BNP, CMADM ####[facility] Tsruhkaeuq1193 [place] [address]Dr. Nahed Yañez CBC AUTO DIFFon 01-30-2022 BASO # 0.0 103/ul Normal 0.0-0.1 The [facility] Comment on above: Performed By: #### C BC ####[facility] Uwfqxsjgzv5015 [place] [address]Dr. Nahed Yañez Basophils/100 WBC (Bld) 0.2 % Normal 0.2-2.0 The [facility] Comment on above: Performed By: #### C BC ####[facility] Glhahwvhew3118 [place] [address]Dr. Nahed Yañez EO # 0.1 103/ul Normal 0.0-0.7 The [facility] Comment on above: Performed By: #### C BC ####[facility] [address]gnwlop[address] [place], [place] [address]Dr. Nahed Yañez Eosinophils/100 WBC (Bld) 0.8 % Critically low 0.9-7.0 The [facility] Comment on above: Performed By: #### C BC ####[facility] Vpmprmmdqd7435 [place] [address]Dr. Nahed Yañez Erythrocyte distribution width (RBC) [Ratio] 14.9 % Normal 11.0-15.0 [facility] Comment on above: Performed By: #### C BC ####[facility] Garjhbvvmb7228 [place] [address]Dr. Nahed Yañez Hematocrit (Bld) [Volume fraction] 45.8 % Normal 36.0-48.0 [facility] Comment on above: Performed By: #### C BC ####[facility] Oioazdziip[address] [place], [place] [address]Dr. Nahed Yañez Hemoglobin (Bld) [Mass/Vol] 14.7 g/dL Normal 12.0-16.0 [facility] Comment on above: Performed By: #### C BC ####[facility] Wkybfvifsf[address] [place], [place] [address]Dr. Nahed Yañez IG # 0.07 10e3/ul Critically high 0.00-0.03 [facility] Comment on above: Performed By: #### C BC ####[facility] Kiwheizoqx[address] [place], [place] [address]Dr. Nahed Yañez IG % 0.4 % Normal 0.0-0.5 [facility] Comment on above: Performed By: #### C BC ####[facility] Tuvdvt[address] [place], [place] [address]Dr. Nahed Yañez LYMPH # 2.3 103/ul Normal 1.2-3.8 The [facility] Comment on above: Performed By: #### C BC ####[facility] Arysumejsi[address] [place], [place] [address]Dr. Nahed Yañez Lymphocytes/100 WBC (Bld) 12.5 % Critically low 20.5-60.0 [facility] Comment on above: Performed By: #### C BC ####[facility] Daqehkzlnm[address] [place], [place] [address]Dr. Nahed Yañez MANUAL DIFF REQ NO Normal [facility] Comment on above: Performed By: #### C BC ####[facility] Vshnolhyph9352 [place] [address]Dr. Nahed Yañez MCH (RBC) [Entitic mass] 28.0 pg Normal 26.7-34.0 The [facility] Comment on above: Performed By: #### C BC ####[facility] Prmvpmgigj8043 [place] [address]Dr. Nahed Yañez MCHC (RBC) [Mass/Vol] 32.1 g/dL Normal 29.9-35.2 The [facility] Comment on above: Performed By: #### C BC ####[facility] Dagxarkqmt6244 [place] [address]Dr. Naehd Otilio MCV (RBC) [Entitic vol] 87.2 fL Normal 81.0-99.0 The [facility] Comment on above: Performed By: #### C BC ####[facility] Zlnvxdqeum[address] [place], [place] [address]Dr. aNhed Yañez MONO # 0.9 103/ul Critically high 0.3-0.8 [facility] Comment on above: Performed By: #### C BC ####[facility] Gepgbjwvxq2775 [place] [address]Dr. Rosemarieashley Yañez Monocytes/100 WBC (Bld) 5.1 % Normal 1.7-12.0 The [facility] Comment on above: Performed By: #### C BC ####[facility] Hvwrhxcl[address] [place], [place] [address]Dr. Rosemarieashley Yañez NEUT # 14.6 103/ul Critically high 1.4-6.5 The [facility] Comment on above: Performed By: #### C BC ####[facility] Ccysrxywai3718 [place] [address]Dr. Nahed Yañez Neutrophils/100 WBC (Bld) 81.0 % Critically high 43.0-75.0 The [facility] Comment on above: Performed By: #### C BC ####[facility] Wovzvjhlkr[address] [place], [place] [address]Dr. Nahed Yañez Platelet mean volume (Bld) [Entitic vol] 10.3 fL Normal 9.5-13.5 The [facility] Comment on above: Performed By: #### C BC ####[facility] Lozefoxtng9966 [place] [address]Dr. Nahed Yañez PLT 280 103/ul Normal 150-450 [facility] Comment on above: Performed By: #### C BC ####[facility] Kuwbxmysza2650 [place] [address]Dr. Nahed Yañez RBC 5.25 106/ul Normal 4.20-5.40 [facility] Comment on above: Performed By: #### C BC ####[facility] Zzqyisxymw6479 [place] [address]Dr. Nahed Otilio WBC 18.1 103/ul Critically high 4.0-11.0 [facility] Comment on above: Performed By: #### C BC ####[facility] Insagiwwdq3002 [place] [address]Dr. Nahed Yañez PROF CHEM 8 (BAS METB)on Anion gap [Moles/Vol] 13.5 mmol/L Normal [facility] Comment on above: Performed By: #### B MP, BNP, CMADM ####[facility] Slcbrrtxwq6018 [place] [address]Dr. Nahed Yañez Calcium [Mass/Vol] 9.5 mg/dL Normal 8.5-10.1 [facility] Comment on above: Performed By: #### B MP, BNP, CMADM ####[facility] Gjqybhkqku4761 [place] [address]Dr. Nahed Yañez Chloride [Moles/Vol] 102 mmol/L Normal 98-107 [facility] Comment on above: Performed By: #### B MP, BNP, CMADM ####[facility] Texukpkhup[address] [place] [address]Dr. Nahed Yañez CO2 [Moles/Vol] 26.6 mmol/L Normal 21.0-32.0 [facility] Comment on above: Performed By: #### B MP, BNP, CMADM ####[facility] Hgnzdhvzfn9759 [place] [address]Dr. Yilan Yañez Creatinine [Mass/Vol] 1.06 mg/dL Critically high 0.55-1.02 [facility] Comment on above: Performed By: #### B MP, BNP, CMADM ####[facility] Rfvppspqln3649 [place] [address]Dr. Nahed Yañez EGFR-AF UGANDAN >60 Normal >=60 [facility] Comment on above: Performed By: #### B MP, BNP, CMADM ####[facility] Nenszbskka1796 [place] [address]Dr. Nahed Yañez EGFR-NON AF UGANDAN 53 mL/min/1.73m2 Critically low >=60 [facility] Comment on above: Performed By: #### B MP, BNP, CMADM ####[facility] Nrvvqglhbw3660 [place] [address]Dr. Nahed Yañez Glucose [Mass/Vol] 108 mg/dL Critically high 74-106 [facility] Comment on above: Performed By: #### B MP, BNP, CMADM ####[facility] Ntzkakqted5971 [place] [address]Dr. Nahed Yañez Potassium [Moles/Vol] 4.1 mmol/L Normal 3.5-5.1 [facility] Comment on above: Performed By: #### B MP, BNP, CMADM ####[facility] Jdsenvlvcz8374 [place] [address]Dr. Nahed Yañez Sodium [Moles/Vol] 138 mmol/L Normal 136-145 [facility] Comment on above: Performed By: #### B MP, BNP, CMADM ####[facility] Beeczqoqbc3841 [place] [address]Dr. Nahed Yañez Urea nitrogen [Mass/Vol] 9.0 mg/dL Normal 7.0-18.0 [facility] Comment on above: Performed By: #### B MP, BNP, CMADM ####[facility] Lpuewwlrip9766 [place] [address]Dr. Nahed Yañez Urea nitrogen/Creatinine [Mass ratio] 8.5 mg/mg Normal [facility] Comment on above: Performed By: #### B MP, BNP, CMADM ####[facility] Adfnxuifvb[address] [place], [place] [address]YtShaun Yañez Cardiovascular Lab Reporton 11-03-2021 Cardiovascular Lab Report [facility] Patient Name: Vivian Vann [facility] MR #: [id number] Physician: Gasper Avendano, Department of M.D. Medicine Service Date: 11/02/2021 Division of Birthdate: 1960 Cardiology Room #: 4AB [id number] Adult Cardiovascular Services [facility] [address] [place] [address] Cardiovascular Laboratory Report FINAL IMPRESSIONS: 1. Severe, [...] anterior descending coronary artery, placement of a 6-Turkmen MynxGrip closure device. METHODS: After risks, benefits, and alternatives were explained, written informed consent was obtained. The patient was prepped and draped in usual sterile fashion over both groins. Using 1% lidocaine solution, local infiltration anesthesia was achieved over the right groin. Under ultrasound guidance, a micropuncture kit was used to access the right common femoral artery. This was upsized to a 6-Turkmen 11 cm sheath. Angiography via the 6-Turkmen sheath was performed. Bilateral selective coronary angiography was performed using JL4 and JR4 catheters. After reviewing the images, it was elected to proceed with an interventional procedure. A 6-Turkmen XB3.5 guide catheter was advanced over a [...] artery, angiography was repeated initially using a 6-Turkmen 3DRC catheter and subsequently using a 4-Turkmen JR4 catheter. After administration of intracoronary nitroglycerin, the concerning lesion almost completely resolved. There was a residual mild stenosis. All catheters removed. A 6-Turkmen MynxGrip closure device was deployed per protocol [...] and anatomy suitable for closure device. INDICATION: Nfx-HY-zrlcmplew myocardial infarction. Electronically Signed by: Gasper Avendano M.D. 11/21/2021 02:07 P Titusab Tristan Avendano (more content not included)... Normal [facility] CBC COMPLETE BLOOD COUNTon 0 11-02-2021 Erythrocyte distribution width (RBC) [Ratio] 14.7 % Normal 11.5-15.0 [facility] Comment on above: Order Comment: No: D o not add to previous draw Performed By: #### 3 5200, 09576 #### [facility] [address] [place] [address], [facility] Hematocrit (Bld) [Volume fraction] 34.5 % Low 36.0-45.0 [facility] Comment on above: Order Comment: No: D o not add to previous draw Performed By: #### 3 5200, 95743 #### [facility] [address] [place] [address], [place] Hemoglobin (Bld) [Mass/Vol] 10.6 g/dL Low 12.0-15.0 [facility] Comment on above: Order Comment: No: D o not add to previous draw Performed By: #### 3 5200, 17270 #### [facility] [address] [place] [address], [place] MCH (RBC) [Entitic mass] 28.1 pg Normal 27.0-33.0 [facility] Comment on above: Order Comment: No: D o not add to previous draw Performed By: #### 3 5200, 05967 #### [facility] [address] [place] [address], [place] MCHC (RBC) [Mass/Vol] 30.7 g/dL Low 32.0-35.0 [facility] Comment on above: Order Comment: No: D o not add to previous draw Performed By: #### 3 5200, 13665 #### [facility] [address] [place] [address], [facility] MCV (RBC) [Entitic vol] 91.5 fL Normal 82.0-98.0 [facility] Comment on above: Order Comment: No: D o not add to previous draw Performed By: #### 3 5200, 40660 #### [facility] [address] [place] [id number], [facility] Nucleated RBC/100 WBC (Bld) [Ratio] 0 % Normal 0-0 [facility] Comment on above: Order Comment: No: D o not add to previous draw Performed By: #### 3 0, 37745 #### [facility] [address] [facility] [place] [address], [facility] PLAT CNT 219 10*3/uL Normal 150-400 [facility] Comment on above: Order Comment: No: D o not add to previous draw Performed By: #### 3 5199, 95465 #### [facility] [address] [place] [address], [facility] RBC (Bld) [#/Vol] 3.77 10*6/uL Low 3.80-5.00 [facility] Comment on above: Order Comment: No: D o not add to previous draw Performed By: #### 3 0, 89057 #### [facility] [address] [place] [place] [id number], [facility] WBC (Bld) [#/Vol] 13.64 10*3/uL High 4.00-10.60 [facility] Comment on above: Order Comment: No: D o not add to previous draw Performed By: #### 3 5200, 52700 #### [facility] [address] [place] [id number], [facility] HEMOGLOBIN A1Con 11-02-2021 Glucose [Moles/Vol] 140 mmol/L Normal [facility] Comment on above: Order Comment: No: D o not add to previous draw Performed By: #### 3 1791 #### [facility] [address] [place] [address], [facility] HbA1c (Bld) [Mass fraction] 6.5 % High 4.0-6.0 [facility] Comment on above: Order Comment: No: D o not add to previous draw Performed By: #### 3 1791 #### [facility] [address] [place] [address], [facility] CENTER LIPID PROFILEon 11-02-2021 Cholesterol [Mass/Vol] 171 mg/dL Normal 120-200 [facility] Comment on above: Order Comment: No: D o not add to previous draw Result Comment: CHOL ESTEROL REFERENCE RANGE: 20 YEARS AND OLDER CARDIOVASCULAR RISK Less than 200 mg/dl Low Risk 200 to 239 mg/dl Borderline Risk 240 mg/dl and greater High Risk Performed By: #### 3 5200, 62641 #### [facility] [address] [facility] [place] [address], [facility] Cholesterol in HDL [Mass/Vol] 57 mg/dL Normal 23-92 [facility] Comment on above: Order Comment: No: D o not add to previous draw Result Comment: Slig ht variation in normal range could be due to gender and/or age. HDL CHOLESTEROL REFERENCE RANGE: 20 years and older Cardiovascular Risk > or =60 mg/dL Desirable 40 TO 59 mg/dL Low Risk <40 mg/dL High Risk Performed By: #### 3 5200, 89729 #### [facility] [address] [place] [address], [facility] Cholesterol in LDL [Mass/Vol] 89 mg/dL Normal 0-130 [facility] Comment on above: Order Comment: No: D o not add to previous draw Result Comment: LDL IS A CALCULATION LDL IS ONLY VALID IF THE TRIG IS LESS THAN 400. Performed By: #### 3 5200, 80118 #### [facility] [address] [place] [address], [facility] Cholesterol.total/Chol esterol in HDL [Mass ratio] 3.0 {ratio} Normal .0-4.5 [facility] Comment on above: Order Comment: No: D o not add to previous draw Performed By: #### 3 5200, 85363 #### [facility] [address] [place] [address], [facility] NON-HDL CHOLESTEROL 114 mg/dL Normal [facility] Comment on above: Order Comment: No: D o not add to previous draw Performed By: #### 3 5200, 03035 #### [facility] [address] Triglyceride [Mass/Vol] 124 mg/dL Normal 40-149 [facility] Comment on above: Order Comment: No: D o not add to previous draw Result Comment: TRIG LYCERIDE REFERENCE RANGE: 20 YEARS AND OLDER CARDIOVASCULAR RISK LESS THAN 150 mg/dl LOW RISK 150 TO 199 mg/dl BORDERLINE RISK 200 mg/dl AND GREATER HIGH RISK Performed By: #### 3 7760, 25251 #### [facility] [address] [place] [address], [facility] VLDL CHOL 25 mg/dL Normal 0-40 [facility] Comment on above: Order Comment: No: D o not add to previous draw Performed By: #### 3 5200, 02010 #### [facility] [address] [place] [address], [facility] TROPONIN-Ion 11-02-2021 Troponin I.cardiac [Mass/Vol] 0.14 ng/mL Critically high 0.00-0.04 [facility] Comment on above: Result Comment: M-NM EVIOUS CRITICAL RESULT REFERENCE RANGES: 0.00 - 0.04 ng/ml NORMAL 0.05 - 0.50 ng/ml INDETERMINATE > 0.50 ng/ml CONSISTENT WITH AN M.I. Performed By: #### 3 5200, 92451 #### [facility] [address] [place] [address], [facility] Troponin I.cardiac [Mass/Vol] 0.19 ng/mL Critically high 0.00-0.04 The [facility] Comment on above: Order Comment: No: D o not add to previous draw Result Comment: M-NM EVIOUS CRITICAL RESULT REFERENCE RANGES: 0.00 - 0.04 ng/ml NORMAL 0.05 - 0.50 ng/ml INDETERMINATE > 0.50 ng/ml CONSISTENT WITH AN M.I. Performed By: #### 3 5200 #### [facility] [address] [place] [address], [facility] TYPE AND SCREENon 11-02-2021 ABO INTERPRETATION O Normal [facility] Comment on above: Performed By: #### 3 5200, 96363 #### [facility] [address] [facility] [place] [address], [facility] RH INTERPRETATION Positive Normal [facility] Comment on above: Performed By: #### 3 5200, 44563 #### [facility] [address] UFH HEPARIN ASSAYon 11-03-19 UNFRACTIONATED HEPARIN 0.76 IU/mL High 0.30-0.70 [facility] Comment on above: Result Comment: Clare roxaban and Apixaban will interfere with the anti Xa assay used to monitor UFH and LMWH. Performed By: #### 3 5200, 13120 #### [facility] [address] UNFRACTIONATED HEPARIN 0.96 IU/mL Critically high 0.30-0.7 0 [facility] Comment on above: Result Comment: Resu lt checked and called. Accurately read back by Kathy Suárez RN at 0548 Rivaroxaban and Apixaban will interfere with the anti Xa assay used to monitor UFH and LMWH. Performed By: #### 3 3727 #### [facility] [address] [place] [address], [facility] APTTon 11-01-2021 aPTT Coag (Bld) [Time] 28.6 s Normal 25.0-35.0 [facility] Comment on above: Order Comment: No: [...] THIS PURPOSE. Performed By: #### 3 5200, 44768 #### [facility] [address] BNPon 11-01-2021 Natriuretic peptide B (Bld) [Mass/Vol] 9643.0 pg/mL Critically high <=900.0 [facility] Comment on above: Performed By: #### C MP, BNP, HSTROPN ####[facility] [address] [place], [place] [address]Dr. Nahed Yañez BNP (B-TYPE NATRIURETIC PEPT AYLEEN)on 11-01-2021 Natriuretic peptide B (Bld) [Mass/Vol] 768 pg/mL High 0-100 [facility] Comment on above: Order Comment: No: D o not add to previous draw Result Comment: Give n the appropriate clinical setting a BNP result of >100 pg/mL indicates congestive heart failure. Performed By: #### 8 5123 #### [facility] [address] CBC AUTO DIFFon 11-01-2021 BASO # 0.0 103/ul Normal 0.0-0.1 The [facility] Comment on above: Performed By: #### C BC ####[facility] [address] [place], [place] [address]Dr. Nahed Yañez Basophils/100 WBC (Bld) 0.1 % Critically low 0.2-2.0 The [facility] Comment on above: Performed By: #### C BC ####[facility] [address] [place], [place] [address]Dr. Nahed Yañez EO # 0.0 103/ul Normal 0.0-0.7 The [facility] Comment on above: Performed By: #### C BC ####[facility] [address] [place] [address]Dr. Nahed Yañez Eosinophils/100 WBC (Bld) 0.0 % Critically low 0.9-7.0 [facility] Comment on above: Performed By: #### C BC ####[facility] [address] [place] [address]Dr. Nahed Yañez Erythrocyte distribution width (RBC) [Ratio] 14.7 % Normal 11.0-15.0 [facility] Comment on above: Performed By: #### C BC ####[facility] [address] [place] [address]Dr. Nahed Yañez Hematocrit (Bld) [Volume fraction] 36.1 % Normal 36.0-48.0 [facility] Comment on above: Performed By: #### C BC ####[facility] [address] [place], [place] [address]Dr. Nahed Yañez Hemoglobin (Bld) [Mass/Vol] 11.1 g/dL Critically low 12.0-16.0 The [facility] Comment on above: Result Comment: IV a ntibiotics Performed By: #### C BC ####[facility] [address] [place], [place] [address]Dr. Nahed Yañez IG # 0.09 10e3/ul Critically high 0.00-0.03 [facility] Comment on above: Performed By: #### C BC ####[facility] [address] [place], [place] [address]Dr. Nahed Yañez IG % 0.7 % Critically high 0.0-0.5 The [facility] Comment on above: Performed By: #### C BC ####[facility] [address] [place], [place] [address]Dr. Nahed Yañez LYMPH # 0.6 103/ul Critically low 1.2-3.8 The [facility] Comment on above: Performed By: #### C BC ####[facility] [address] [place], [place] [address]Dr. Nahed Yañez Lymphocytes/100 WBC (Bld) 4.8 % Critically low 20.5-60.0 [facility] Comment on above: Performed By: #### C BC ####[facility] [address] [place] [address]Dr. Nahed Yañez MANUAL DIFF REQ NO Normal [facility] Comment on above: Performed By: #### C BC ####[facility] [address] [place] [address]Dr. Nahed Yañez MCH (RBC) [Entitic mass] 28.2 pg Normal 26.7-34.0 [facility] Comment on above: Performed By: #### C BC ####[facility] [address] [place] [address]Dr. Nahed Yañez MCHC (RBC) [Mass/Vol] 30.7 g/dL Normal 29.9-35.2 The [facility] Comment on above: Performed By: #### C BC ####[facility] [address] [place], [place] [address]Dr. Nahed Yañez MCV (RBC) [Entitic vol] 91.9 fL Normal 81.0-99.0 [facility] Comment on above: Performed By: #### C BC ####[facility] [address] [place], [place] [address]DrShaun Yañez MONO # 0.2 103/ul Critically low 0.3-0.8 The [facility] Comment on above: Performed By: #### C BC ####[facility] [address] [place], [place] [address]Dr. Nahed Yañez Monocytes/100 WBC (Bld) 1.7 % Normal 1.7-12.0 The [facility] Comment on above: Performed By: #### C BC ####[facility] [address] [place], [place] [address]DrShaun Yañez NEUT # 11.2 103/ul Critically high 1.4-6.5 The [facility] Comment on above: Performed By: #### C BC ####[facility] [address] [place], [place] [address]DrShaun Yañez Neutrophils/100 WBC (Bld) 92.7 % Critically high 43.0-75.0 [facility] Comment on above: Performed By: #### C BC ####[facility] [address] [place] [address]Dr. Nahed Yañez Platelet mean volume (Bld) [Entitic vol] 11.1 fL Normal 9.5-13.5 [facility] Comment on above: Performed By: #### C BC ####[facility] [address] [place] [address]Dr. Nahed Yañez PLT 213 103/ul Normal 150-450 The [facility] Comment on above: Performed By: #### C BC ####[facility] [address] [place] [address]Dr. Nahed Yañez RBC 3.93 106/ul Critically low 4.20-5.40 The [facility] Comment on above: Performed By: #### C BC ####[facility] [address] [place] [address]Dr. Nahed Yañez WBC 12.0 103/ul Critically high 4.0-11.0 The [facility] Comment on above: Performed By: #### C BC ####[facility] [address] [place] [address]Dr. Nahed Yañez CBC W/DIFFon 11-01-2021 ABS IMM GRANS 0.2 10*3/uL Normal 0.0-0.2 [facility] Comment on above: Order Comment: No: D o not add to previous draw Performed By: #### 3 3340, 38017 #### [facility] [address] [facility] [place] [address], [facility] ABS NEUTROPHILS 12.5 10*3/uL High 1.6-7.6 [facility] Comment on above: Order Comment: No: D o not add to previous draw Performed By: #### 3 5200, 15886 #### [facility] [address] [place] [address], [place] Basophils (Bld) [#/Vol] 0.0 10*3/uL Normal 0.0-0.2 [facility] Comment on above: Order Comment: No: D o not add to previous draw Performed By: #### 3 5200, 50038 #### [facility] [address] [place] [address], [place] Basophils/100 WBC (Bld) 0.0 % Normal 0.0-1.0 [facility] Comment on above: Order Comment: No: D o not add to previous draw Performed By: #### 3 5199, 56233 #### [facility] [address] [place] [address], [place] Eosinophils (Bld) [#/Vol] 0.0 10*3/uL Normal 0.0-0.5 [facility] Comment on above: Order Comment: No: D o not add to previous draw Performed By: #### 3 5199, 69524 #### [facility] [address] [place] [address], [place] Eosinophils/100 WBC (Bld) 0.0 % Normal 0.0-6.0 [facility] Comment on above: Order Comment: No: D o not add to previous draw Performed By: #### 3 5199, 46521 #### [facility] [address] [place] [address], [place] Erythrocyte distribution width (RBC) [Ratio] 14.6 % Normal 11.5-15.0 [facility] Comment on above: Order Comment: No: D o not add to previous draw Performed By: #### 3 5199, 78486 #### [facility] [address] [place] [address], [place] Hematocrit (Bld) [Volume fraction] 36.6 % Normal 36.0-45.0 [facility] Comment on above: Order Comment: No: D o not add to previous draw Performed By: #### 3 5199, 64066 #### [facility] [address] [place] [address], [place] Hemoglobin (Bld) [Mass/Vol] 11.4 g/dL Low 12.0-15.0 [facility] Comment on above: Order Comment: No: D o not add to previous draw Performed By: #### 3 5200, 74001 #### [facility] [address] [place] [address], [place] IMMATURE GRANS 1.2 % High 0.0-1.0 [facility] Comment on above: Order Comment: No: D o not add to previous draw Performed By: #### 3 5200, 80559 #### [facility] [address] [place] [address], [place] Lymphocytes (Bld) [#/Vol] 0.6 10*3/uL Low 1.2-4.0 [facility] Comment on above: Order Comment: No: D o not add to previous draw Performed By: #### 3 5200, 44069 #### [facility] [address] [place] [address], [place] Lymphocytes/100 WBC (Bld) 4.2 % Low 20.0-45.0 [facility] Comment on above: Order Comment: No: D o not add to previous draw Performed By: #### 3 5200, 28862 #### [facility] [address] [place] [address], [place] MCH (RBC) [Entitic mass] 28.2 pg Normal 27.0-33.0 [facility] Comment on above: Order Comment: No: D o not add to previous draw Performed By: #### 3 5200, 71504 #### [facility] [address] [place] [address], [place] MCHC (RBC) [Mass/Vol] 31.1 g/dL Low 32.0-35.0 [facility] Comment on above: Order Comment: No: D o not add to previous draw Performed By: #### 3 5200, 43967 #### [facility] [address] [place] [address], [facility] MCV (RBC) [Entitic vol] 90.6 fL Normal 82.0-98.0 [facility] Comment on above: Order Comment: No: D o not add to previous draw Performed By: #### 3 0, 69796 #### [facility] [address] [place] [address], [facility] Monocytes (Bld) [#/Vol] 0.5 10*3/uL Normal 0.1-1.0 [facility] Comment on above: Order Comment: No: D o not add to previous draw Performed By: #### 3 5199, 23311 #### [facility] [address] [facility] [place] [address], [facility] MONOS 3.3 % Low 5.0-12.0 [facility] Comment on above: Order Comment: No: D o not add to previous draw Performed By: #### 3 5199, 84640 #### [facility] [address] [facility] [place] [address], [facility] Neutrophils/100 WBC (Bld) 91.3 % High 40.0-72.0 [facility] Comment on above: Order Comment: No: D o not add to previous draw Performed By: #### 3 5199, 41858 #### [facility] [address] [facility] [place] [address], [facility] Nucleated RBC/100 WBC (Bld) [Ratio] 0 % Normal 0-0 [facility] Comment on above: Order Comment: No: D o not add to previous draw Performed By: #### 3 0, 51505 #### [facility] [address] [facility] [place] [address], [facility] PLAT CNT 224 10*3/uL Normal 150-400 [facility] Comment on above: Order Comment: No: D o not add to previous draw Performed By: #### 3 5199, 22488 #### [facility] [address] [place] [address], [facility] RBC (Bld) [#/Vol] 4.04 10*6/uL Normal 3.80-5.00 [facility] Comment on above: Order Comment: No: D o not add to previous draw Performed By: #### 3 5200, 39609 #### [facility] [address] [place] [address], [facility] WBC (Bld) [#/Vol] 13.70 10*3/uL High 4.00-10.60 [facility] Comment on above: Order Comment: No: D o not add to previous draw Performed By: #### 3 5200, 58858 #### [facility] [address] [place] [address], [facility] COMP METABOLIC PANELon 11-01 Albumin [Mass/Vol] 3.7 g/dL Normal 3.5-5.7 [facility] Comment on above: Order Comment: No: D o not add to previous draw Performed By: #### 0 0121, 48225, 09396 #### [facility] [address] [place] [address], [facility] ALKALINE PHOSPH 54 IU/L Normal 34-104 [facility] Comment on above: Order Comment: No: D o not add to previous draw Performed By: #### 0 0121, 77518, 79032 #### [facility] [address] [place] [address], [facility] ALT [Catalytic activity/Vol] 12 U/L Normal 7-52 [facility] Comment on above: Order Comment: No: D o not add to previous draw Performed By: #### 0 0121, 83978, 74204 #### [facility] [address] [place] [address], [place] AST [Catalytic activity/Vol] 17 U/L Normal 13-39 [facility] Comment on above: Order Comment: No: D o not add to previous draw Performed By: #### 0 0121, 48923, 14468 #### [facility] [address] [place] [address], [place] Bilirubin [Mass/Vol] 0.3 mg/dL Normal 0.3-1.0 [facility] Comment on above: Order Comment: No: D o not add to previous draw Performed By: #### 0 0121, 47686, 65736 #### [facility] [address] [place] [address], [place] Calcium [Mass/Vol] 9.4 mg/dL Normal 8.6-10.3 [facility] Comment on above: Order Comment: No: D o not add to previous draw Performed By: #### 0 0121, 31004, 47501 #### [facility] [address] [place] [address], [place] Chloride [Moles/Vol] 100 mmol/L Normal 98-107 [facility] Comment on above: Order Comment: No: D o not add to previous draw Performed By: #### 0 0121, 65271, 25295 #### [facility] [address] [place] [address], [place] CO2 [Moles/Vol] 29 mmol/L Normal 21-31 [facility] Comment on above: Order Comment: No: D o not add to previous draw Performed By: #### 0 0121, 65684, 92935 #### [facility] [address] [place] [address], [place] Creatinine [Mass/Vol] 1.04 mg/dL Normal 0.60-1.20 [facility] Comment on above: Order Comment: No: D o not add to previous draw Performed By: #### 0 0121, 67893, 93085 #### [facility] [address] [place] [address], [place] eGFR- non- 54 ml/min/1.73sq m Abnormal >60 [facility] Comment on above: Order Comment: No: D o not add to previous draw Performed By: #### 0 0121, 30672, 89936 #### [facility] [address] [place] [address], [place] GFR/1.73 sq M.predicted among blacks MDRD (S/P/Bld) [Vol rate/Area] mL/min/{1.73_m2} Normal >60 [facility] Comment on above: Order Comment: No: D o not add to previous draw Performed By: #### 0 0121, 04683, 40524 #### [facility] [address] [place] [address], [place] Glucose [Mass/Vol] 239 mg/dL High 70-100 [facility] Comment on above: Order Comment: No: D o not add to previous draw Performed By: #### 0 0121, 63232, 38200 #### [facility] [address] [place] [address], [place] Potassium [Moles/Vol] 4.3 mmol/L Normal 3.5-5.1 [facility] Comment on above: Order Comment: No: D o not add to previous draw Performed By: #### 0 0121, 75581, 31278 #### [facility] [address] [place] [address], [place] Protein [Mass/Vol] 5.6 g/dL Low 6.0-8.3 [facility] Comment on above: Order Comment: No: D o not add to previous draw Performed By: #### 0 0121, 69046, 69249 #### [facility] [address] [address], [place] Sodium [Moles/Vol] 139 mmol/L Normal 136-145 [facility] Comment on above: Order Comment: No: D o not add to previous draw Performed By: #### 0 0121, 78258, 04595 #### [facility] [address] [place] [address], [place] Urea nitrogen [Mass/Vol] 24 mg/dL Normal 7-25 [facility] Comment on above: Order Comment: No: D o not add to previous draw Performed By: #### 0 0121, 09917, 06835 #### [facility] [address] [place] [address], [facility] MAGNESIUM BLOODon 11-01-2021 Magnesium [Mass/Vol] 2.0 mg/dL Normal 1.9-2.7 [facility] Comment on above: Order Comment: No: D o not add to previous draw Performed By: #### 0 0121, 97209, 94520 #### [facility] [address] [place] [address], [facility] PROF 14(COMP METB)on 022 Albumin [Mass/Vol] 3.1 g/dL Critically low 3.4-5.0 [facility] Comment on above: Performed By: #### C MP, BNP, HSTROPN ####[facility] [address] [place] [address]Dr. Nahed Yañez Albumin/Globulin [Mass ratio] 1.0 {ratio} Normal [facility] Comment on above: Performed By: #### C MP, BNP, HSTROPN ####[facility] [address] [place] [address]Dr. Nahed Yañez ALP [Catalytic activity/Vol] 56 U/L Normal 46-116 [facility] Comment on above: Performed By: #### C MP, BNP, HSTROPN ####[facility] [address] [place] [address]Dr. Nahed Yañez ALT [Catalytic activity/Vol] 19 U/L Normal 14-59 [facility] Comment on above: Performed By: #### C MP, BNP, HSTROPN ####[facility] [address] [place] [address]Dr. Nahed Yañez Anion gap [Moles/Vol] 14.3 mmol/L Normal [facility] Comment on above: Performed By: #### C MP, BNP, HSTROPN ####[facility] [address] [place] [address]Dr. Nahed Yañez AST [Catalytic activity/Vol] 18 U/L Normal 15-37 [facility] Comment on above: Performed By: #### C MP, BNP, HSTROPN ####[facility] [address] [place] [address]Dr. Nahed Yañez Bilirubin [Mass/Vol] 0.4 mg/dL Normal 0.2-1.0 [facility] Comment on above: Performed By: #### C MP, BNP, HSTROPN ####[facility] [address] [place] [address]Dr. Nahed Yañez Calcium [Mass/Vol] 9.3 mg/dL Normal 8.5-10.1 [facility] Comment on above: Performed By: #### C MP, BNP, HSTROPN ####[facility] [address] [place], [place] [address]Dr. Nahed Yañez Chloride [Moles/Vol] 102 mmol/L Normal 98-107 [facility] Comment on above: Performed By: #### C MP, BNP, HSTROPN ####[facility] [address] [place], [place] [address]Dr. Nahed Yañez CO2 [Moles/Vol] 27.1 mmol/L Normal 21.0-32.0 The [facility] Comment on above: Performed By: #### C MP, BNP, HSTROPN ####[facility] [address] [address] [place], [place] [address]Dr. Nahed Yañez Creatinine [Mass/Vol] 1.25 mg/dL Critically high 0.55-1.02 [facility] Comment on above: Performed By: #### C MP, BNP, HSTROPN ####[facility] S[address]xvasmr[address] [place], [place] [address]Dr. Nahed Yañez EGFR-AF UGANDAN 53 mL/min/1.73m2 Critically low >=60 [facility] Comment on above: Performed By: #### C MP, BNP, HSTROPN ####[facility] Fibepocwfd[address] [place] [address]Dr. Nahed Yañez EGFR-NON AF UGANDAN 44 mL/min/1.73m2 Critically low >=60 [facility] Comment on above: Performed By: #### C MP, BNP, HSTROPN ####[facility] Ywjjqlszry6[address] [place] [address]Dr. Nahed Yañez Globulin (S) [Mass/Vol] 3.2 g/dL Normal [facility] Comment on above: Performed By: #### C MP, BNP, HSTROPN ####[facility] Ytmyjxpeqa26[address] [place] [address]Dr. Nahed Yañez Glucose [Mass/Vol] 248 mg/dL Critically high 74-106 [facility] Comment on above: Performed By: #### C MP, BNP, HSTROPN ####[facility] Fattdxpdvg[address] [place], [place] [address]Dr. Nahed Yañez Potassium [Moles/Vol] 3.4 mmol/L Critically low 3.5-5.1 [facility] Comment on above: Performed By: #### C MP, BNP, HSTROPN ####[facility] Xvipxglicj4[address] [place] [address]Dr. Nahed Yañez Protein [Mass/Vol] 6.3 g/dL Critically low 6.4-8.2 [facility] Comment on above: Performed By: #### C MP, BNP, HSTROPN ####[facility] Wyemnnlabp[address] [place], [place] [address]Dr. Nahed Yañez Sodium [Moles/Vol] 140 mmol/L Normal 136-145 [facility] Comment on above: Performed By: #### C MP, BNP, HSTROPN ####[facility] Qpscdokpqy[address] [place], [place] [address]Dr. Nahed Yañez Urea nitrogen [Mass/Vol] 18.0 mg/dL Normal 7.0-18.0 [facility] Comment on above: Performed By: #### C MP, BNP, HSTROPN ####[facility] Otbrbdnfaf[address] [place], [place] [address]Dr. Nahed Yañez Urea nitrogen/Creatinine [Mass ratio] 14.4 mg/mg Normal [facility] Comment on above: Performed By: #### C MP, BNP, HSTROPN ####[facility] [address]23[address] [place], [place] [address]Ee. Nahed Yañez PROTHROMBIN TIMEon 2 INR Coag (PPP) [Relative time] 1.06 {INR} Normal 0.91-1.16 [facility] Comment on above: Order Comment: No: [...] 1995;[id number]. Performed By: #### 5 6101 #### [facility] [address] [place] [address], [facility] PT Coag (PPP) [Time] 13.8 s Normal 12.3-14.8 [facility] Comment on above: Order Comment: No: D o not add to previous draw Result Comment: ALL RESULTS MUST BE INTERPRETED WITH RESPECT TO BLOOD DRAWING ARTIFACT OR DILUTION ERROR OF ANTICOAGULANT AT THE TIME OF SAMPLING. Performed By: #### 5 6101 #### [facility] [address] [place] [id number], [facility] TROPONIN, HIGH SENSITIVITYon 11-01-2021 HSTROP 1684.4 pg/mL Critically high 4.0-51.3 [facility] Comment on above: Result Comment: CUT- OFF POINTS HAVE BEEN ESTABLISHED BASED ON THE FOURTH UNIVERSAL DEFINITIONS OF MYOCARDIALINFARCTION. THE UPPER REFERENCE LIMIT (URL) OF TROPONIN, DEFINED THE 99TH PERCENTILE OFcTnI DISTRIBUTION IN A REFERENCE POPULATION, HAS BEEN CONFIRMED THE DECISION THRESHOLDFOR [place] DIAGNOSIS. Performed By: #### C MP, BNP, HSTROPN ####[facility] [address] [place], [place] [address]Xk. Nahed Yañez TROPONIN-Ion 11-01-2021 Troponin I.cardiac [Mass/Vol] 0.22 ng/mL Critically high 0.00-0.04 [facility] Comment on above: Order Comment: No: D o not add to previous draw Result Comment: M-TR OPONIN INITIAL CRITICAL HIGH; RESPUN AND RETESTED M-CRITICAL RESULT(S) REVIEWED, CALLED TO AND READ BACK BY Kathy Suárez RN at 2205. REFERENCE RANGES: 0.00 - 0.04 ng/ml NORMAL 0.05 - 0.50 ng/ml INDETERMINATE > 0.50 ng/ml CONSISTENT WITH AN M.I. Performed By: #### 0 0121, 71830, 19621 #### [facility] [address] [facility] [place] [address], [facility] UFH HEPARIN ASSAYon 11-02-19 UNFRACTIONATED HEPARIN 0.55 IU/mL Normal 0.30-0.70 Th [facility] Comment on above: Result Comment: Clare roxaban and Apixaban will interfere with the anti Xa assay used to monitor UFH and LMWH. Performed By: #### 3 5200, 42109 #### [facility] [address] [facility] [place] [address], [facility] BLOOD GASES BTYon 10-31-2021 02 MODE ROOM AIR Normal [facility] Comment on above: Performed By: #### A BG ####[facility] Fujurmeytf5338 [place] [id number]. Nahed Yañez ALLENS TEST Positive Normal [facility] Comment on above: Performed By: #### A BG ####[facility] Ykcerrjslk14[address] [place] [address]Dr. Nahed Yañez Base excess Calc (Bld) [Moles/Vol] 3.5 mmol/L Critically high -2.0-2.0 [facility] Comment on above: Performed By: #### A BG ####[facility] Xjsysebqmy3572 [place] [address]Dr. Nahed Yañez BIPAP PRESSURE Normal The [facility] Comment on above: Performed By: #### A BG ####[facility] Osthyzbhww[address] [place], [place] [address]Dr. Nahed Yañez CO2 [Moles/Vol] 56.3 mmol/L Critically high 23.0-28.0 [facility] Comment on above: Performed By: #### A BG ####[facility] Xywhrvytoi[address] [place], [place] [address]Dr. Nahed Yañez CPAP Normal [facility] Comment on above: Performed By: #### A BG ####[facility] Bdrnbeahhs[address] [place], [place] [address]Dr. Nahed Yañez FIO2 Normal [facility] Comment on above: Performed By: #### A BG ####[facility] Lnwkbbvofx[address] [place], [place] [address]Dr. Nahed Yañez HCO3 (Bld) [Moles/Vol] 26.8 mmol/L Critically high 22.0-26 .0 [facility] Comment on above: Performed By: #### A BG ####[facility] Tobpvbyboy[address] [place], [place] [address]Dr. Nahed Yañez LPM Normal [facility] Comment on above: Performed By: #### A BG ####[facility] Glnkwadzqs9061[address] [place], [place] [address]Dr. Nahed Yañez MINUTE VOLUME Normal The [facility] Comment on above: Performed By: #### A BG ####[facility] Qfzicyglhy9[address] [place], [place] [address]Dr. Nahed Yañez Oxygen (Bld) [Partial pressure] 51.8 mm[Hg] Critically low 80.0-100.0 [facility] Comment on above: Performed By: #### A BG ####[facility] Nwhndeqrsz7556 [place] [address]Dr. Nahed Yañez Oxygen saturation in Blood 86.3 % Critically low 95.0-100.0 [facility] Comment on above: Performed By: #### A BG ####[facility] Rcufyablmc2098 [place] [address]Dr. Nahed Yañez PCO2 43.8 mmHg Normal 35.0-45.0 [facility] Comment on above: Performed By: #### A BG ####[facility] Lfpsytpitu3324 [place] [address]Dr. Nahed Yañez PEEP [facility] Comment on above: Performed By: #### A BG ####[facility] Ivtqpjturd[address] [place], [place] [address]Dr. Nahed Yañez pH (Bld) 7.415 [pH] Normal 7.350-7.450 [facility] Comment on above: Performed By: #### A BG ####[facility] Ydmvdchhxp[address] [place], [place] [address]Dr. Nahed Yañez PIP [facility] Comment on above: Performed By: #### A BG ####[facility] Dylqpydczz[address] [place], [place] [address]Dr. Nahed Yañez PS [facility] Comment on above: Performed By: #### A BG ####[facility] Nrmgyhpngl[address] [place], [place] [address]Dr. Nahed Yañez PUNCTURE SITE RR Normal [facility] Comment on above: Performed By: #### A BG ####[facility] Eebhbyjcxu[address] [place], [place] [address]Dr. Nahed Yañez RATE [facility] Comment on above: Performed By: #### A BG ####[facility] Klnngbijsw[address] [place], [place] [address]Dr. Nahed Yañez VENT MODE [facility] Comment on above: Performed By: #### A BG ####[facility] Dtbs[address]st[address] [place], [place] [address]Dr. Nahed Yañez [place] Normal [facility] Comment on above: Performed By: #### A BG ####[facility] Xdwcqtqggv0785 [place] [address]Dr. Nahed Yañez BNPon 10-31-2021 Natriuretic peptide B (Bld) [Mass/Vol] 19696.0 pg/mL Critically high <=900.0 [facility] Comment on above: Performed By: #### T 4, TSH, BNP, CMADM ####[facility] Kdlgfszmoa8[address] [place] [address]Dr. Nahed Yañez CARDIAC FRANCISCO 3-6on 2 CK [Catalytic activity/Vol] 91 U/L Normal 26-192 [facility] Comment on above: Performed By: #### C MREP ####[facility] Dubrjukfub[address] [place], [place] [address]Dr. Nahed Yañez CK.MB [Mass/Vol] 7.32 ng/mL Critically high <=3.60 [facility] Comment on above: Result Comment: test repeated critical value verified Performed By: #### C MREP ####[facility] Aebqjyzqli[address] [place], [place] [address]Dr. Nahed Yañez HSTROP 2823.1 pg/mL Critically high 4.0-51.3 [facility] Comment on above: Result Comment: CUT- OFF POINTS HAVE BEEN ESTABLISHED BASED ON THE FOURTH UNIVERSAL DEFINITIONS OF MYOCARDIALINFARCTION. THE UPPER REFERENCE LIMIT (URL) OF TROPONIN, DEFINED THE 99TH PERCENTILE OFcTnI DISTRIBUTION IN A REFERENCE POPULATION, HAS BEEN CONFIRMED THE DECISION THRESHOLDFOR [place] DIAGNOSIS.test repeated critical value verified Performed By: #### C MREP ####[facility] Q[address]jqgrkkhu[address] [place] [address]Dr. Nahed Yañez CARDIAC FRANCISCO ADMITon 022 CK [Catalytic activity/Vol] 85 U/L Normal 26-192 [facility] Comment on above: Performed By: #### T 4, TSH, BNP, CMADM ####[facility] Waidvfaadm2972 [place] [address]Dr. Nahed Yañez CK.MB [Mass/Vol] 6.44 ng/mL Critically high <=3.60 [facility] Comment on above: Performed By: #### T 4, TSH, BNP, CMADM ####[facility] Vcjdszgdti7004 [place] [address]Dr. Nahed Yañez HSTROP 3194.8 pg/mL Critically high 4.0-51.3 The [facility] Comment on above: Result Comment: CUT- OFF POINTS HAVE BEEN ESTABLISHED BASED ON THE FOURTH UNIVERSAL DEFINITIONS OF MYOCARDIALINFARCTION. THE UPPER REFERENCE LIMIT (URL) OF TROPONIN, DEFINED THE 99TH PERCENTILE OFcTnI DISTRIBUTION IN A REFERENCE POPULATION, HAS BEEN CONFIRMED THE DECISION THRESHOLDFOR [place] DIAGNOSIS. Performed By: #### T 4, TSH, BNP, CMADM ####[facility] Qccolqcwam8145 [place] [address]Dr. Nahed Yañez ANDRE 57 ng/mL Normal 9-82 [facility] Comment on above: Performed By: #### T 4, TSH, BNP, CMADM ####[facility] Rhmsasqaxn[address] [place], [place] [address]Dr. Nahed Yañez CBC AUTO DIFFon 10-31-2021 BASO # 0.0 103/ul Normal 0.0-0.1 The [facility] Comment on above: Performed By: #### C BC ####[facility] Youjqeheut[address] [place], [place] [address]Dr. Nahed Yañez Basophils/100 WBC (Bld) 0.2 % Normal 0.2-2.0 The [facility] Comment on above: Performed By: #### C BC ####[facility] Dutrxdobeg78[address] [place] [address]Dr. Nahed Yañez EO # 0.0 103/ul Normal 0.0-0.7 The [facility] Comment on above: Performed By: #### C BC ####[facility] Drxddvumnh[address] [place], [place] [address]Dr. Nahed Yañez Eosinophils/100 WBC (Bld) 0.1 % Critically low 0.9-7.0 The [facility] Comment on above: Performed By: #### C BC ####[facility] Seeluwtkew[address] [place], [place] [address]Dr. Nahed Yañez Erythrocyte distribution width (RBC) [Ratio] 14.8 % Normal 11.0-15.0 [facility] Comment on above: Performed By: #### C BC ####[facility] Unyoypmqlf[address] [place], [place] [address]Dr. Nahed Yañez Hematocrit (Bld) [Volume fraction] 44.4 % Normal 36.0-48.0 [facility] Comment on above: Performed By: #### C BC ####[facility] Ljoilufgbh[address] [place], [place] [address]Dr. Nahed Yañez Hemoglobin (Bld) [Mass/Vol] 14.1 g/dL Normal 12.0-16.0 [facility] Comment on above: Performed By: #### C BC ####[facility] Bhznmrhvqd[address] [place], [place] [address]Dr. Nahed Yañez IG # 0.04 10e3/ul Critically high 0.00-0.03 [facility] Comment on above: Performed By: #### C BC ####[facility] Ixdcvcshny[address] [place], [place] [address]Dr. Rosemarieashley Yañez IG % 0.3 % Normal 0.0-0.5 The [facility] Comment on above: Performed By: #### C BC ####[facility] Xqaucviakl[address] [place], [place] [address]Dr. Nahed Yañez LYMPH # 1.4 103/ul Normal 1.2-3.8 The [facility] Comment on above: Performed By: #### C BC ####[facility] Cwyvodnxcd[address] [place], [place] [address]Dr. Nahed Yañez Lymphocytes/100 WBC (Bld) 10.4 % Critically low 20.5-60.0 The [facility] Comment on above: Performed By: #### C BC ####[facility] Uijfiblcza[address] [place], [place] [address]Dr. Rosemarieashley Yañez MANUAL DIFF REQ NO Normal The [facility] Comment on above: Performed By: #### C BC ####[facility] Unrkrahmfk[address] [place], [place] [address]Dr. Nahed Yañez MCH (RBC) [Entitic mass] 28.1 pg Normal 26.7-34.0 The [facility] Comment on above: Performed By: #### C BC ####[facility] Gewszdvoub[address] [place] [address]Dr. Nahed Yañez MCHC (RBC) [Mass/Vol] 31.8 g/dL Normal 29.9-35.2 The [facility] Comment on above: Performed By: #### C BC ####[facility] Bajmhbsqsf5471 [place] [address]Dr. Nahed Otilio MCV (RBC) [Entitic vol] 88.4 fL Normal 81.0-99.0 The [facility] Comment on above: Performed By: #### C BC ####[facility] Mnlzbmfaqh8512 [place] [address]Dr. Nahed Otilio MONO # 0.8 103/ul Normal 0.3-0.8 The [facility] Comment on above: Performed By: #### C BC ####[facility] Sqbdgzrvfg4677 [place] [address]Dr. Rosemarieashley Yañez Monocytes/100 WBC (Bld) 6.0 % Normal 1.7-12.0 The [facility] Comment on above: Performed By: #### C BC ####[facility] Cqgyq[address] [place], [place] [address]Dr. Nahed Yañez NEUT # 10.9 103/ul Critically high 1.4-6.5 The [facility] Comment on above: Performed By: #### C BC ####[facility] Ppimmkixyc8392 [place] [address]Dr. Nahed Yañez Neutrophils/100 WBC (Bld) 83.0 % Critically high 43.0-75.0 The [facility] Comment on above: Performed By: #### C BC ####[facility] Nlxycfpezr[address] [place], [place] [address]Dr. Nahed Yañez Platelet mean volume (Bld) [Entitic vol] 10.8 fL Normal 9.5-13.5 The [facility] Comment on above: Performed By: #### C BC ####[facility] [address]fh[address] [place], [place] [address]Tw. Nahed Yañez PLT 402 103/ul Normal 150-450 The [facility] Comment on above: Performed By: #### C BC ####[facility] Qogzvbztts3690 [place], [place] [address]Gs. Nahed Yañez RBC 5.02 106/ul Normal 4.20-5.40 The [facility] Comment on above: Performed By: #### C BC ####[facility] Hggboqygrt49[address] [place], [place] [address]Th. Nahed Yañez WBC 13.1 103/ul Critically high 4.0-11.0 The [facility] Comment on above: Performed By: #### C BC ####[facility] Pmtyiuyclo75[address] [place], [place] [address]Ji. Nahed Yañez CTA CHEST WO W CONon 022 CTA CHEST WO W CON Normal The [facility] CULTURE BLOODon 10-31-2021 Microscopic examination of blood, culture Culture Observations: NO GROWTH AT 5 DAYS. Normal The [facility] Comment on above: Performed By: #### B LDCX2 ####[facility] Ajbvlbpuab1469 [place], [place] [address]Su. Nahed Yañez Microscopic examination of blood, culture Culture Observations: NO GROWTH AT 5 DAYS. Normal [facility] Comment on above: Performed By: #### B LDCX1 ####[facility] Ftlqervyyq6[address] [place], [place] [address]Kn. Nahed Yañez Covid-19 PCR (CVDTB)on 10-13 SARS-CoV-2 (COVID-19) RNA MIRNA+probe Ql (Unsp spec) Not detected Normal NOT DETECTED The [facility] Comment on above: Result Comment: When [...] for this test is supported by the [place] of Health and Human Service's declaration that [...] longer be used). Performed By: #### C [facility] ####[facility] Hqslzwphzl5[address] [place] [address]Dr. Nahed Yaeñz ECHO LIMITED STUDYon 022 ECHO LIMITED STUDY Normal The [facility] ER URINE PROFILEon 2 Bilirubin Ql (U) SMALL Abnormal NEGATIVE The [facility] Comment on above: Performed By: #### NUNU DOVERO ####[facility] Lmiiuairts[address] [place], [place] [address]Dr. Nahed Yañez Clarity (U) CLEAR Normal CLEAR [facility] Comment on above: Performed By: #### NUNU DOVERO ####[facility] Awrjidjdaj[address] [place], [place] [address]Dr. Nahed Yañez Color (U) YELLOW Normal YELLOW [facility] Comment on above: Performed By: #### NUNU DOVERO ####[facility] Ajttowwjoh[address] [place], [place] [address]Dr. Nahed Yañez ERUAHD A micrscopic examination will be performed if indicated. Normal The [facility] Comment on above: Performed By: #### NUNU DOVERO ####[facility] Gmyjhpmzen[address] [place], [place] [address]Dr. Nahed Yañez Glucose Ql (U) Negative Normal NEGATIVE The [facility] Comment on above: Performed By: #### NUNU DOVERO ####[facility] Gplovhoqhf64[address] [place], [place] [address]Dr. Nahed Yañez Hemoglobin Ql (U) TRACE-INTACT Abnormal NEGATIVE [facility] Comment on above: Performed By: #### NUNU DOVERO ####[facility] Dhjndjsjda1688 [place] [address]Dr. Nahed Yañez Ketones Ql (U) 15 mg/dl Abnormal NEGATIVE The [facility] Comment on above: Performed By: #### YARELIS DOVE ####[facility] Sjdgmjzavs[address] [place], [place] [address]Dr. Nahed Yañez LEUKOCYTES TRACE Abnormal NEGATIVE The [facility] Comment on above: Performed By: #### YARELIS DOVE ####[facility] Bruwpkftgr25[address] [place], [place] [address]Dr. Nahed Yañez Nitrite Ql (U) Negative Normal NEGATIVE The [facility] Comment on above: Performed By: #### YARELIS DOVE ####[facility] Rnbnssbrlt[address] [place], [place] [address]Dr. Nahed Yañez pH (U) 6.5 [pH] Normal 5-9 The [facility] Comment on above: Performed By: #### YARELIS DOVE ####[facility] Zjwgtuvueu[address] [place], [place] [address]Dr. Nahed Yañez Protein (U) [Mass/Vol] 30 mg/dL Abnormal NEGAT JOSEPHINE/ TRACE The [facility] Comment on above: Performed By: #### YARELIS DOVE ####[facility] Shtotivkuc[address] [place], [place] [address]Dr. Nahed Yañez SPEC GRAVITY 1.025 Normal 1.005-<=1.02 5 The [facility] Comment on above: Performed By: #### YARELIS DOVE ####[facility] Hjbndsbomh[address] [place], [place] [address]Dr. Nahed Yañez UR MICRO IND INDICATED Normal The [facility] Comment on above: Performed By: #### YARELIS DOVE ####[facility] Ljxhlrtthe[address] [place], [place] [address]Dr. Nahed Yañez Urobilinogen Qn (U) 0.2 {Alem'U}/dL Normal 0.2 - 1. 0 The [facility] Comment on above: Performed By: #### YARELIS DOVE ####[facility] Erjwpqjvfg[address] [place], [place] [address]Dr. Nahed Yañez INFLUENZA A AND B AGon 10-31 INFLUANEGH SEE BELOW Normal The [facility] Comment on above: Result Comment: Nega tive for Flu A protein angiten. Infection due to Flu A cannot be ruled out. Flu A angiten in the sample may be below the detection limit of the test. Performed By: #### I NFLUAB ####[facility] Bkrvhzdvto[address] [place], [place] [address]Dr. Nahed Yañez INFLUBNEGH SEE BELOW Normal [facility] Comment on above: Result Comment: Nega tive for Flu B protein antigen. Infection due to Flu B cannot be ruled out. Flu B antigen in the sample may be below the detection limit of the test. Performed By: #### I NFLUAB ####[facility] Sz[address]kmsubh[address] [place], [place] [address]Dr. Nahed Yañez INFLUENZA A AG Negative Normal NEGATIVE SEE COMMENT [facility] Comment on above: Performed By: #### I NFLUAB ####[facility] Ihderufmzo[address] [place], [place] [address]Dr. Nahed Yañez INFLUENZA B AG Negative Normal NEGATIVE SEE COMMENT [facility] Comment on above: Performed By: #### I NFLUAB ####[facility] Wiyhwzspxg[address] [place], [place] [address]Dr. Nahed Yañez INTERNAL CONTROLS Within Normal Limits Normal Wi thin Normal Limits The [facility] Comment on above: Performed By: #### I NFLUAB ####[facility] [facility] [address]vfr[address] [place], [place] [address]Dr. Nahed Yañez LACTATE/LACTIC ACIDon 2021 Lactate [Moles/Vol] 1.3 mmol/L Normal 0.4-1.9 [facility] Comment on above: Performed By: #### L ACT ####[facility] Oeiskexonr[address] [place], [place] [address]Dr. Nahed Yañez PROF 14(COMP METB)on 022 Albumin [Mass/Vol] 4.3 g/dL Normal 3.4-5.0 [facility] Comment on above: Performed By: #### C MP ####[facility] Rvgfrpqmxq1424 [place] [address]Dr. Nahed Otilio Albumin/Globulin [Mass ratio] 1.2 {ratio} Normal [facility] Comment on above: Performed By: #### C MP ####[facility] Nhgqlbgwpb4695 [place] [id number]. Rosemarieashley Yañez ALP [Catalytic activity/Vol] 77 U/L Normal 46-116 [facility] Comment on above: Performed By: #### C MP ####[facility] Fxaqodgbny8003 [place] [address]Dr. Rosemarieashley Yañez ALT [Catalytic activity/Vol] 25 U/L Normal 14-59 [facility] Comment on above: Performed By: #### C MP ####[facility] Bxnmhavyzv[address] [place], [place] [address]Dr. Nahed Yañez Anion gap [Moles/Vol] 15.6 mmol/L Normal [facility] Comment on above: Performed By: #### C MP ####[facility] Mdpmemyein[address] [place], [place] [address]Dr. Rosemarieashley Yañez AST [Catalytic activity/Vol] 26 U/L Normal 15-37 [facility] Comment on above: Performed By: #### C MP ####[facility] Bhuqinj[address] [place], [place] [address]Dr. Nahed Yañez Bilirubin [Mass/Vol] 0.6 mg/dL Normal 0.2-1.0 [facility] Comment on above: Performed By: #### C MP ####[facility] Nkgrfzhfnz[address] [place], [place] [address]Dr. Nahed Yañez Calcium [Mass/Vol] 10.0 mg/dL Normal 8.5-10.1 [facility] Comment on above: Performed By: #### C MP ####[facility] Ovrcdjbcqw[address] [place], [place] [address]Dr. Nahed Yañez Chloride [Moles/Vol] 101 mmol/L Normal 98-107 [facility] Comment on above: Performed By: #### C MP ####[facility] Pqeluvnljf7539 [place] [address]Dr. Nahed Yañez CO2 [Moles/Vol] 29.0 mmol/L Normal 21.0-32.0 [facility] Comment on above: Performed By: #### C MP ####[facility] Gnxwpzhaqb6767 [place] [address]Dr. Nahed Yañez Creatinine [Mass/Vol] 0.89 mg/dL Normal 0.55-1.02 [facility] Comment on above: Performed By: #### C MP ####[facility] Jsfzduwbnp3168 [place] [address]Dr. Nahed Yañez EGFR-AF UGANDAN >60 Normal >=60 [facility] Comment on above: Performed By: #### C MP ####[facility] Aabjfvojdc6345 [place] [address]Dr. Nahed Otilio EGFR-NON AF UGANDAN >60 Normal >=60 [facility] Comment on above: Performed By: #### C MP ####[facility] Pyjcohcjnw8788 [place] [address]Dr. Nahed Otilio Globulin (S) [Mass/Vol] 3.7 g/dL Normal [facility] Comment on above: Performed By: #### C MP ####[facility] Jxkmqetgvb4275 [place] [address]Dr. Nahed Otilio Glucose [Mass/Vol] 182 mg/dL Critically high 74-106 [facility] Comment on above: Performed By: #### C MP ####[facility] Chbezayrcj2342 [place] [address]Dr. Nahed Otilio Potassium [Moles/Vol] 3.6 mmol/L Normal 3.5-5.1 The [facility] Comment on above: Performed By: #### C MP ####[facility] Fkusqoxoce[address] [place], [place] [address]Dr. Nahed Otilio Protein [Mass/Vol] 8.0 g/dL Normal 6.4-8.2 [facility] Comment on above: Performed By: #### C MP ####[facility] Rlwpcwxwae[address] [place], [place] [address]Dr. Nahed Yañez Sodium [Moles/Vol] 142 mmol/L Normal 136-145 [facility] Comment on above: Performed By: #### C MP ####[facility] Wztyjibnay3389 [place] [address]Dr. Nahed Yañez Urea nitrogen [Mass/Vol] 8.0 mg/dL Normal 7.0-18.0 [facility] Comment on above: Performed By: #### C MP ####[facility] Zncmfvlisd5909 [place] [address]Dr. Nahed Yañez Urea nitrogen/Creatinine [Mass ratio] 9.0 mg/mg Normal [facility] Comment on above: Performed By: #### C MP ####[facility] Sxvfcjsqbd9943 [place] [address]Dr. Nahed Yañez T4on 10-31-2021 T4 [Mass/Vol] 8.10 ug/dL Normal 4.80-13.90 [facility] Comment on above: Performed By: #### T 4, TSH, BNP, CMADM ####[facility] Lahvwktlbg8155 [place] [address]Dr. Nahed Yañez TSHon 10-31-2021 TSH 1.088 uIU/mL Normal 0.358-3.740 [facility] Comment on above: Performed By: #### T 4, TSH, BNP, CMADM ####[facility] Dznmwzoimo2311 [place] [address]Dr. Nahed Yañez URINE MICROSCOPIC ONLYon BACTERIA TRACE Abnormal NONE SEEN The [facility] Comment on above: Performed By: #### YARELIS DOVE ####[facility] Dnxoqjoxse8299 [place] [address]Dr. Nahed Otilio Bacteria identified Cx Nom (U) NOT INDICATED Normal The [facility] Comment on above: Performed By: #### NUNU DOVERO ####[facility] Fluthdzfrv8659 [place] [address]Dr. Rosemarieashley Yañez CAST NONE SEEN Normal NONE SEEN The [facility] Comment on above: Performed By: #### YARELIS DOVE ####[facility] Iqcjrwcqyi6410 [place] [id number]. Nahed Yañez Crystals LM Nom (Urine sed) NONE SEEN Normal NONE SEEN The [facility] Comment on above: Performed By: #### NUNU DOVERO ####[facility] Udcnryfhvn5603 [place] [address]Dr. Nahed Yañez Epithelial cells LM Ql (Urine sed) MODERATE Abnormal NONE SEEN /RARE The [facility] Comment on above: Performed By: #### NUNU DOVERO ####[facility] Oadtlbkhzd3821 [place] [address]Dr. Nahed Yañez MUCOUS SMALL Abnormal NONE SEEN The [facility] Comment on above: Performed By: #### YARELIS DOVE ####[facility] Rwiperabyy1043 [place] [address]Dr. Nahed Yañez RBC 2-5 Abnormal 0-2 The [facility] Comment on above: Performed By: #### YARELIS DOVE ####[facility] Snhtujxcyf2783 [place] [address]Dr. Nahed Yañez WBC 2-5 Abnormal NONE SEEN The [facility] Comment on above: Performed By: #### NUNU DOVERO ####[facility] Stadnagkcw6787 [place] [address]Dr. Nahed Yañez XR CHEST 2 Von 10-31-2021 XR CHEST 2 V Normal The [facility] CULTURE URINEon 10-30-2021 CULTURE URINE Culture Observations : MODERATE GROWTH OF MIXED GENITAL MIGUEL. NO POTENTIAL PATHOGENS SEEN. Normal The [facility] Comment on above: Performed By: #### U RCX ####[facility] Rdvbwytfpt1868 [place] [address]Dr. Nahed Yañez US JESSEE DOP LEG BILon 022 US JESSEE DOP LEG MOHAN Normal [facility] CARDIAC FRANCISCO ADMITon 022 CK [Catalytic activity/Vol] 16 U/L Critically low 26-192 The [facility] Comment on above: Performed By: #### C MP, CMADM ####[facility] Etlkvectyu0571 [place] [address]Dr. Nahed Otilio CK.MB [Mass/Vol] 0.56 ng/mL Normal <=3.60 The [facility] Comment on above: Performed By: #### C ERICK MULLER ####[facility] Anismccbsr2098 [place] [address]Dr. Nahed Yañez HSTROP 44.3 pg/mL Normal 4.0-51.3 The [facility] Comment on above: Result Comment: CUT- OFF POINTS HAVE BEEN ESTABLISHED BASED ON THE FOURTH UNIVERSAL DEFINITIONS OF MYOCARDIALINFARCTION. THE UPPER REFERENCE LIMIT (URL) OF TROPONIN, DEFINED THE 99TH PERCENTILE OFcTnI DISTRIBUTION IN A REFERENCE POPULATION, HAS BEEN CONFIRMED THE DECISION THRESHOLDFOR [place] DIAGNOSIS. Performed By: #### C ERICK MULLER ####[facility] [address]iny[address] [place], [place] [address]Dr. Nahed Otilio ANDRE 42 ng/mL Normal 9-82 The [facility] Comment on above: Performed By: #### C ERICK MULLER ####[facility] Pkmglvhkww[address] [place], [place] [address]Dr. Nahed Yañez CBC AUTO DIFFon 09-07-2021 BASO # 0.0 103/ul Normal 0.0-0.1 The [facility] Comment on above: Performed By: #### C BC ####[facility] Qneasbgeqq[address] [place], [place] [address]Dr. Nahed Otilio Basophils/100 WBC (Bld) 0.4 % Normal 0.2-2.0 The [facility] Comment on above: Performed By: #### C BC ####[facility] Javqivbshw[address] [place], [place] [address]Dr. Nahed Yañez EO # 0.2 103/ul Normal 0.0-0.7 The [facility] Comment on above: Performed By: #### C BC ####[facility] Ilqrymytfh[address] [place], [place] [address]Dr. Nahed Otilio Eosinophils/100 WBC (Bld) 2.4 % Normal 0.9-7.0 The [facility] Comment on above: Performed By: #### C BC ####[facility] [address]jvyensscm[address] [place], [place] [address]Dr. Nahed Yañez Erythrocyte distribution width (RBC) [Ratio] 15.1 % Critically high 11.0-15.0 The [facility] Comment on above: Performed By: #### C BC ####[facility] Rzyzlwuqfa[address] [place], [place] [address]Dr. Nahed Yañez Hematocrit (Bld) [Volume fraction] 42.6 % Normal 36.0-48.0 The [facility] Comment on above: Performed By: #### C BC ####[facility] Vnlrtnxwdy[address] [place], [place] [address]Dr. Nahed Yañez Hemoglobin (Bld) [Mass/Vol] 13.4 g/dL Normal 12.0-16.0 The [facility] Comment on above: Performed By: #### C BC ####[facility] Tnxbekzvud[address] [place], [place] [address]Dr. Nahed Yañez IG # 0.33 10e3/ul Critically high 0.00-0.03 [facility] Comment on above: Performed By: #### C BC ####[facility] Zcseaknwfr[address] [place], [place] [address]Dr. Rosemarieashley Yañez IG % 3.9 % Critically high 0.0-0.5 The [facility] Comment on above: Performed By: #### C BC ####[facility] Owqdfgxikw[address] [place], [place] [address]Dr. Nahed Yañez LYMPH # 2.6 103/ul Normal 1.2-3.8 The [facility] Comment on above: Performed By: #### C BC ####[facility] Cdpkbzotdp[address] [place], [place] [address]Dr. Rosemarieashley Yañez Lymphocytes/100 WBC (Bld) 30.3 % Normal 20.5-60.0 The [facility] Comment on above: Performed By: #### C BC ####[facility] [address]qnbpziwyh[address] [place], [place] [address]Dr. Rosemarieashley Yañez MANUAL DIFF REQ NO Normal [facility] Comment on above: Performed By: #### C BC ####[facility] Ruznkgfllm[address] [place], [place] [address]Dr. Nahed Otilio MCH (RBC) [Entitic mass] 28.6 pg Normal 26.7-34.0 The [facility] Comment on above: Performed By: #### C BC ####[facility] Wnewkgxynt6547 [place] [address]Dr. Nahed Yañez MCHC (RBC) [Mass/Vol] 31.5 g/dL Normal 29.9-35.2 The [facility] Comment on above: Performed By: #### C BC ####[facility] Nnrdpgiqzc8962 [place] [address]Dr. Nahed Otilio MCV (RBC) [Entitic vol] 90.8 fL Normal 81.0-99.0 The [facility] Comment on above: Performed By: #### C BC ####[facility] Zetlsbpwvd9281 [place] [address]Dr. Nahed Otilio MONO # 0.7 103/ul Normal 0.3-0.8 The [facility] Comment on above: Performed By: #### C BC ####[facility] Jndoqsdtfz6932 [place] [address]Dr. Rosemarieashley Yañez Monocytes/100 WBC (Bld) 8.0 % Normal 1.7-12.0 The [facility] Comment on above: Performed By: #### C BC ####[facility] Ygkoszhkml[address] [place], [place] [address]Dr. Nahed Yañez NEUT # 4.7 103/ul Normal 1.4-6.5 The [facility] Comment on above: Performed By: #### C BC ####[facility] Zyqpitkmxf6750 [place] [address]Dr. Rosemarieashley Yañez Neutrophils/100 WBC (Bld) 55.0 % Normal 43.0-75.0 The [facility] Comment on above: Performed By: #### C BC ####[facility] Lfisqtkptc5919 [place] [address]Dr. Nahed Yañez Platelet mean volume (Bld) [Entitic vol] 8.9 fL Critically low 9.5-13.5 The [facility] Comment on above: Performed By: #### C BC ####[facility] Xwdyteixoc3987 [place] [address]Dr. Nahed Yañez PLT 270 103/ul Normal 150-450 [facility] Comment on above: Performed By: #### C BC ####[facility] Ycuncjlnkq8572 [place] [address]Dr. Nahed Yañez RBC 4.69 106/ul Normal 4.20-5.40 [facility] Comment on above: Performed By: #### C BC ####[facility] Wwkhflbsfe8738 [place] [address]Dr. Nahed Yañez WBC 8.5 103/ul Normal 4.0-11.0 [facility] Comment on above: Performed By: #### C BC ####[facility] Hrjiahyeqo5503 [place] [address]Dr. Nahed Yañez PROF 14(COMP METB)on 022 Albumin [Mass/Vol] 2.7 g/dL Critically low 3.4-5.0 [facility] Comment on above: Performed By: #### C ERICK MULLER ####[facility] Szrxidepnk2605 [place] [address]Dr. Nahed Yañez Albumin/Globulin [Mass ratio] 0.8 {ratio} Normal [facility] Comment on above: Performed By: #### C ERICK MULLER ####[facility] Ludawdiskz3193 [place] [address]Dr. Nahed Yañez ALP [Catalytic activity/Vol] 65 U/L Normal 46-116 [facility] Comment on above: Performed By: #### C ERICK MULLER ####[facility] Qetmzmahlt3317 [place] [address]Dr. Nahed Yañez ALT [Catalytic activity/Vol] 27 U/L Normal 14-59 [facility] Comment on above: Performed By: #### C ERICK MULLER ####[facility] Jhutwlwffk8303 [place] [address]Dr. Nahed Yañez Anion gap [Moles/Vol] 10.3 mmol/L Normal [facility] Comment on above: Performed By: #### C MP, CMADM ####[facility] Tjgcmpwmrh5980 [place] [address]Dr. Nahed Yañez AST [Catalytic activity/Vol] 11 U/L Critically low 15-37 The [facility] Comment on above: Performed By: #### C RENZO, CMADM ####[facility] Tslzttnhlb9419 [place] [address]Dr. Nahed Yañez Bilirubin [Mass/Vol] 0.3 mg/dL Normal 0.2-1.0 [facility] Comment on above: Performed By: #### C RENZO, CMADM ####[facility] Ulqigzkapp5506 [place] [address]Dr. Nahed Yañez Calcium [Mass/Vol] 8.1 mg/dL Critically low 8.5-10.1 [facility] Comment on above: Performed By: #### C RENZO, CMADM ####[facility] Rmzvxetmyh7400 [place] [address]Dr. Nahed Yañez Chloride [Moles/Vol] 98 mmol/L Normal 98-107 The [facility] Comment on above: Performed By: #### C RENZO, CMADM ####[facility] Veduwrjzph4223 [place] [address]Dr. Nahed Yañez CO2 [Moles/Vol] 32.5 mmol/L Critically high 21.0-32.0 [facility] Comment on above: Performed By: #### C RENZO, CMADM ####[facility] Ulfehxaoti8207 [place] [address]Dr. Nahed Yañez Creatinine [Mass/Vol] 0.94 mg/dL Normal 0.55-1.02 [facility] Comment on above: Performed By: #### C RENZO, CMADM ####[facility] Fftcguawgp9182 [place] [address]Dr. Nahed Yañez EGFR-AF UGANDAN >60 Normal >=60 [facility] Comment on above: Performed By: #### C RENZO, CMADM ####[facility] Pqogyzsxtq9409 [place] [address]Dr. Nahed Yañez EGFR-NON AF UGANDAN >60 Normal >=60 [facility] Comment on above: Performed By: #### C MP, CMADM ####[facility] Quexelluky7627 [place] [address]Dr. Nahed Yañez Globulin (S) [Mass/Vol] 3.2 g/dL Normal [facility] Comment on above: Performed By: #### C MP, CMADM ####[facility] Cbxrfshjex8539 [place] [address]Dr. Nahed Yañez Glucose [Mass/Vol] 123 mg/dL Critically high 74-106 [facility] Comment on above: Performed By: #### C RENZO, CMADM ####[facility] Ohxoqrkori2392 [place] [address]Dr. Nahed Yañez Potassium [Moles/Vol] 3.8 mmol/L Normal 3.5-5.1 [facility] Comment on above: Performed By: #### C RENZO, CMADM ####[facility] Kbvudejvem[address] [place], [place] [address]Dr. Nahed Yañez Protein [Mass/Vol] 5.9 g/dL Critically low 6.1-8.2 [facility] Comment on above: Performed By: #### C RENZO, CMADM ####[facility] Eoshdndamz7[address] [place], [place] [address]Dr. Nahed Yañez Sodium [Moles/Vol] 137 mmol/L Normal 136-145 [facility] Comment on above: Performed By: #### C MP, CMADM ####[facility] Zmyrjytecc[address] [place], [place] [address]Dr. Nahed Yañez Urea nitrogen [Mass/Vol] 20.0 mg/dL Critically high 7.0-18.0 [facility] Comment on above: Performed By: #### C MP, CMADM ####[facility] Tawfyqyqnx[address] [place], [place] [address]Dr. Nahed Yañez Urea nitrogen/Creatinine [Mass ratio] 21.3 mg/mg Normal [facility] Comment on above: Performed By: #### C MP, CMADM ####[facility] Osowamsyjw94[address] [place], [place] [address]Dr. Nahed Yañez BNPon 09-06-2021 Natriuretic peptide B (Bld) [Mass/Vol] 923.0 pg/mL Critically high <=900.0 The [facility] Comment on above: Performed By: #### B MP, BNP, HSTROPN ####[facility] Ixrjyoppro2066 [place] [address]Dr. Nahed Yañez CBC AUTO DIFFon 09-06-2021 BASO # 0.1 103/ul Normal 0.0-0.1 The [facility] Comment on above: Performed By: #### C BC ####[facility] Uvnpbvivlq[address] [place], [place] [address]Dr. Nahed Yañez Basophils/100 WBC (Bld) 0.6 % Normal 0.2-2.0 The [facility] Comment on above: Performed By: #### C BC ####[facility] Fuykhdnjif[address] [place], [place] [address]Dr. Nahed Yañez EO # 0.3 103/ul Normal 0.0-0.7 The [facility] Comment on above: Performed By: #### C BC ####[facility] Hufohgkcls[address] [place], [place] [address]Dr. Nahed Yañez Eosinophils/100 WBC (Bld) 3.0 % Normal 0.9-7.0 The [facility] Comment on above: Performed By: #### C BC ####[facility] Tskhgrijxu[address] [place], [place] [address]Dr. Nahed Yañez Erythrocyte distribution width (RBC) [Ratio] 15.0 % Normal 11.0-15.0 The [facility] Comment on above: Performed By: #### C BC ####[facility] Utvffucfrz[address] [place], [place] [address]Dr. Nahed Yañez Hematocrit (Bld) [Volume fraction] 48.1 % Critically high 36.0-48.0 The [facility] Comment on above: Performed By: #### C BC ####[facility] Qbcfriugih[address] [place], [place] [address]Dr. Nahed Yañez Hemoglobin (Bld) [Mass/Vol] 15.5 g/dL Normal 12.0-16.0 [facility] Comment on above: Result Comment: delt a check called to Manisha WALKER Performed By: #### C BC ####[facility] Efzzalsdgq2036 [place] [address]Dr. Nahed Yañez IG # 0.46 10e3/ul Critically high 0.00-0.03 [facility] Comment on above: Performed By: #### C BC ####[facility] Edemlaallk7179 [place] [address]Dr. Nahed Otilio IG % 4.2 % Critically high 0.0-0.5 [facility] Comment on above: Performed By: #### C BC ####[facility] Tpodzjbbvy5560 [place] [address]Dr. Rosemarieashley Otilio LYMPH # 2.2 103/ul Normal 1.2-3.8 The [facility] Comment on above: Performed By: #### C BC ####[facility] Rhwpbzuwiw4131 [place] [address]Dr. Nahed Yañez Lymphocytes/100 WBC (Bld) 20.6 % Normal 20.5-60.0 [facility] Comment on above: Performed By: #### C BC ####[facility] Uaznfhhgwa9614 [place] [address]Dr. Rosemarieashley Yañez MANUAL DIFF REQ NO Normal [facility] Comment on above: Performed By: #### C BC ####[facility] Usrbvtclpt8286 [place] [address]Dr. Nahed Otilio MCH (RBC) [Entitic mass] 28.2 pg Normal 26.7-34.0 [facility] Comment on above: Performed By: #### C BC ####[facility] Zwcsknitgm2287 [place] [address]Dr. Nahed Otilio MCHC (RBC) [Mass/Vol] 32.2 g/dL Normal 29.9-35.2 [facility] Comment on above: Performed By: #### C BC ####[facility] Neodfydduq1325 [place] [id number]. Nahed Yañez MCV (RBC) [Entitic vol] 87.5 fL Normal 81.0-99.0 [facility] Comment on above: Performed By: #### C BC ####[facility] Zbgimxpxyx9168 [place] [address]Dr. Nahed Yañez MONO # 0.7 103/ul Normal 0.3-0.8 [facility] Comment on above: Performed By: #### C BC ####[facility] Vhsifkidbg7856 [place] [address]Dr. Nahed Yañez Monocytes/100 WBC (Bld) 6.4 % Normal 1.7-12.0 [facility] Comment on above: Performed By: #### C BC ####[facility] Fwta[address]mjc[address] [place] [id number]. Nahed Yañez NEUT # 7.1 103/ul Critically high 1.4-6.5 [facility] Comment on above: Performed By: #### C BC ####[facility] Ngrxhvggtg[address] [place] [address]Dr. Nahed Yañez Neutrophils/100 WBC (Bld) 65.2 % Normal 43.0-75.0 [facility] Comment on above: Performed By: #### C BC ####[facility] Uobejpqfat0216 [place] [id number]. Nahed Yañez Platelet mean volume (Bld) [Entitic vol] 8.9 fL Critically low 9.5-13.5 [facility] Comment on above: Performed By: #### C BC ####[facility] Atttduutgj[address] [place] [address]Dr. Nahed Yañez PLT 390 103/ul Normal 150-450 [facility] Comment on above: Performed By: #### C BC ####[facility] Wamasxaiqt8145 [place] [address]Dr. Nahed Yañez RBC 5.50 106/ul Critically high 4.20-5.40 [facility] Comment on above: Performed By: #### C BC ####[facility] Fuifdatwgh9728 [place] [address]Dr. Nahed Yañez WBC 10.8 103/ul Normal 4.0-11.0 [facility] Comment on above: Performed By: #### C BC ####[facility] Izuzznynua[address] [place] [address]Dr. Nahed Yañez CULTURE BLOODon 09-06-2021 Microscopic examination of blood, culture Culture Observations: NO GROWTH AT 5 DAYS. Isolate 1 BC_BA_NA Normal The [facility] Comment on above: Performed By: #### B LDCX2 ####[facility] Wrwefgrbri[address] [place] [address]Dr. Nahed Yañez Microscopic examination of blood, culture Culture Observations: NO GROWTH AT 5 DAYS. Normal The [facility] Comment on above: Performed By: #### B LDCX1 ####[facility] Srtfjmmcev[address] [place] [address]Dr. Nahed Yañez Covid-19 PCR (CVDTBH)on 08-13 SARS-CoV-2 (COVID-19) RNA MIRNA+probe Ql (Unsp spec) Not detected Normal NOT DETECTED The [facility] Comment on above: Result Comment: When [...] for this test is supported by the [employer] of Health and Human Service's declaration [...] be used). Performed By: #### C VDTBH ####[facility] Putcytrlxu1248 [place] [address]Dr. Nahed Yañez LACTATE/LACTIC ACIDon 2021 Lactate [Moles/Vol] 0.1 mmol/L Critically low 0.4-2.0 [facility] Comment on above: Performed By: #### L ACT ####[facility] Wgbiyvbkgz1567 [place] [address]Dr. Nahed Yañez Lactate [Moles/Vol] 1.5 mmol/L Normal 0.4-2.0 [facility] Comment on above: Performed By: #### L ACT ####[facility] Xsnsekdlra5722 [place] [address]Dr. Nahed Yañez POINT OF CARE GLUCOSEon 08-13 Glucose [Mass/Vol] 201 mg/dL Critically high 74-106 [facility] Comment on above: Performed By: #### P OCGLUC ####[facility] [address] [place], [place] [address]Dr. Nahed Yañez PROF CHEM 8 (BAS METB)on Anion gap [Moles/Vol] 14.8 mmol/L Normal [facility] Comment on above: Performed By: #### B MP, BNP, HSTROPN ####[facility] Mnucetstyy[address] [place] [address]Dr. Nahed Yañez Calcium [Mass/Vol] 8.8 mg/dL Normal 8.5-10.1 [facility] Comment on above: Performed By: #### B MP, BNP, HSTROPN ####[facility] Rggwxkjjoo1383 [place] [address]Dr. Nahed Yañez Chloride [Moles/Vol] 95 mmol/L Critically low 98-107 [facility] Comment on above: Performed By: #### B MP, BNP, HSTROPN ####[facility] Aljpcpaxam[address] [place] [address]Dr. Nahed Yañez CO2 [Moles/Vol] 28.7 mmol/L Normal 21.0-32.0 [facility] Comment on above: Performed By: #### B MP, BNP, HSTROPN ####[facility] Yvujrdrlyt67[address] [place] [address]Dr. Nahed Yañez Creatinine [Mass/Vol] 0.98 mg/dL Normal 0.55-1.02 [facility] Comment on above: Performed By: #### B MP, BNP, HSTROPN ####[facility] Dhpqxidqhb8937 [place] [address]Dr. Nahed Yañez EGFR-AF UGANDAN >60 Normal >=60 [facility] Comment on above: Performed By: #### B MP, BNP, HSTROPN ####[facility] Uaxtytmmuy4[address] [place] [address]Dr. Nahed Yañez EGFR-NON AF UGANDAN 58 mL/min/1.73m2 Critically low >=60 [facility] Comment on above: Performed By: #### B MP, BNP, HSTROPN ####[facility] [address] [place], [place] [address]Dr. Nahed Yañez Glucose [Mass/Vol] 150 mg/dL Critically high 74-106 [facility] Comment on above: Performed By: #### B MP, BNP, HSTROPN ####[facility] [address] [place], [place] [address]Dr. Nahed Yañez Potassium [Moles/Vol] 4.5 mmol/L Normal 3.5-5.1 [facility] Comment on above: Performed By: #### B MP, BNP, HSTROPN ####[facility] [address] [place], [place] [address]Dr. Nahed Yañez Sodium [Moles/Vol] 134 mmol/L Critically low 136-145 [facility] Comment on above: Performed By: #### B MP, BNP, HSTROPN ####[facility] Psfr[address]kyif[address] [place], [place] [address]Dr. Nahed Yañez Urea nitrogen [Mass/Vol] 19.0 mg/dL Critically high 7.0-18.0 [facility] Comment on above: Performed By: #### B MP, BNP, HSTROPN ####[facility] [address] [place], [place] [address]Dr. Nahed Yañez Urea nitrogen/Creatinine [Mass ratio] 19.4 mg/mg Normal [facility] Comment on above: Performed By: #### B MP, BNP, HSTROPN ####[facility] [address] [place], [place] [address]Zz. Nahed Yañez TROPONIN, HIGH SENSITIVITYon 09-06-2021 HSTROP 50.4 pg/mL Normal 4.0-51.3 [facility] Comment on above: Result Comment: CUT- OFF POINTS HAVE BEEN ESTABLISHED BASED ON THE FOURTH UNIVERSAL DEFINITIONS OF MYOCARDIALINFARCTION. THE UPPER REFERENCE LIMIT (URL) OF TROPONIN, DEFINED THE 99TH PERCENTILE OFcTnI DISTRIBUTION IN A REFERENCE POPULATION, HAS BEEN CONFIRMED THE DECISION THRESHOLDFOR [place] DIAGNOSIS. Performed By: #### B MP, BNP, HSTROPN ####[facility] Gas[address]lsnlju[address] [place], [place] [address]Dq. Nahed Yañez XR CHEST 1 Von 09-06-2021 XR CHEST 1 V Normal [facility] CBC with Diffon 09-08-2018 Abs. Basophil 0.03 k/uL Normal 0.00-0.[address] [facility] Comment on above: Performed By: #### L IP, CMPX, CDP #### [facility] [address] [place], [place] [address] Credit Assistant: Nino Farias MD Abs.Imm.Granulocyte 0.05 k/uL Normal 0.00-0.30 [facility] Comment on above: Performed By: #### L IP, CMPX, CDP #### [facility] [address] [place] [address] Credit Assistant: Nino Farias MD Abs.Neutrophil (Seg) 11.30 k/uL High 1.50-8.10 [facility] Comment on above: Performed By: #### L IP, CMPX, CDP #### [facility] [address] [place], [facility]83 Credit Assistant: Nino Farias MD Basophils/100 WBC (Bld) 0 % Normal 0-2 [facility] Comment on above: Performed By: #### L IP, CMPX, CDP #### [facility] [address] [place] [id number] Credit Assistant: Nino Farias MD Eosinophils #/vol (Bld) 0.17 10*3/uL Normal 0.00-0.44 [facility] Comment on above: Performed By: #### L IP, CMPX, CDP #### [facility] [address] [place], [place] [address]83 Credit Assistant: Nino Farias MD Eosinophils/100 WBC (Bld) 1 % Normal 1-4 [facility] Comment on above: Performed By: #### L IP, CMPX, CDP #### [facility] [address] [place], [facility]83 Credit Assistant: Nino Farias MD Erythrocyte distribution width Ratio (RBC) 12.5 % Normal 11.8-14.4 [facility] Comment on above: Performed By: #### L IP, CMPX, CDP #### [address] [place], [facility]83 Credit Assistant: Nino Farias MD Hematocrit Volume Fraction (Bld) 36.8 % Normal 36.3-47.1 [facility] Comment on above: Performed By: #### L IP, CMPX, CDP #### [address] [place], [facility]83 Credit Assistant: Nino Farias MD Hemoglobin mass conc (Bld) 11.6 g/dL Low 11.9-15.1 [facility] Comment on above: Performed By: #### L IP, CMPX, CDP #### [address] [place], [facility]83 Credit Assistant: Nino Farias MD Immature granulocytes #/vol (Bld) 0 % Normal 0 [facility] Comment on above: Performed By: #### L IP, CMPX, CDP #### [address] [place] [address] Credit Assistant: Nino Farias MD Lymphocytes #/vol (Bld) 2.56 10*3/uL Normal 1.10-3.70 [facility] Comment on above: Performed By: #### L IP, CMPX, CDP #### [facility] [address] [place], [place] [address] Credit Assistant: Nino Farias MD Lymphocytes/100 WBC (Bld) 18 % Low 24-43 [facility] Comment on above: Performed By: #### L IP, CMPX, CDP #### [facility] [address] [place], [place] [address] Credit Assistant: Nino Farias MD MCH Entitic mass (RBC) 30.6 pg Normal 25.2-33.5 [facility] Comment on above: Performed By: #### L IP, CMPX, CDP #### [facility] [address] [place], [facility]83 Credit Assistant: Nino Farias MD MCHC mass conc (RBC) 31.5 g/dL Normal 28.4-34.8 [facility] Comment on above: Performed By: #### L IP, CMPX, CDP #### [facility] [address] [place], [facility]83 Credit Assistant: Nino Farias MD MCV Entitic volume (RBC) 97.1 fL Normal 82.6-102.9 [facility] Comment on above: Performed By: #### L IP, CMPX, CDP #### [facility] [address] [place], [facility]83 Credit Assistant: Nino Farias MD Monocytes #/vol (Bld) 0.55 10*3/uL Normal 0.10-1.20 [facility] Comment on above: Performed By: #### L IP, CMPX, CDP #### [facility] [address] [place], [place] 8[address]83 Credit Assistant: Nino Farias MD Monocytes/100 WBC (Bld) 4 % Normal 3-12 [facility] Comment on above: Performed By: #### L IP, CMPX, CDP #### [facility] [address] [place], [place] [id number] Credit Assistant: Nino Farias MD Neutrophil (Seg) 77 % High 36-65 [facility] Comment on above: Performed By: #### L IP, CMPX, CDP #### [facility] [address] [place], [place] 320[address]83 Credit Assistant: Nino Farias MD NRBC Automated 0.0 per 100 WBC Normal 0.0 [facility] Comment on above: Performed By: #### L IP, CMPX, CDP #### [facility] [address] [place], [place] 76[address]83 Credit Assistant: Nino Farias MD Platelet mean volume Entitic volume (Bld) 9.2 fL Normal 8.1-13.[address] [facility] Comment on above: Performed By: #### L IP, CMPX, CDP #### [facility] [address] [place] [address] Dr. [place], [place] 0265183 Credit Assistant: Nino Farias MD Platelets #/vol (Bld) 305 10*3/uL Normal 138-453 [facility] Comment on above: Performed By: #### L IP, CMPX, CDP #### [address] [place], [place] 960[address]83 Credit Assistant: Nino Farias MD RBC #/vol (Bld) 3.79 10*6/uL Low 3.95-5.11 [facility] Comment on above: Performed By: #### L IP, CMPX, CDP #### [facility] [address] [place], [place] 63[address]383 Credit Assistant: Nino Farias MD WBC #/vol (Bld) 14.7 10*3/uL High 3.5-11.3 [facility] Comment on above: Performed By: #### L IP, CMPX, CDP #### [facility] [address] [place] 334[address]83 Credit Assistant: Nino Farias MD Auto Diff Performed NOT REPORTED Normal [facility] Comment on above: Performed By: #### L IP, CMPX, CDP #### [facility] [address] [place], [place] 7524783 Credit Assistant: Nino Farias MD Platelets #/vol (Bld) NOT REPORTED Normal [facility] Comment on above: Performed By: #### L IP, CMPX, CDP #### [facility] [address] [place] [address] Credit Assistant: Nino Farias MD RBC morphology finding Nom (Bld) NOT REPORTED Normal [facility] Comment on above: Performed By: #### L IP, CMPX, CDP #### [facility] [address] [place], [place] 7022283 Credit Assistant: Nino Farias MD WBC Morphology NOT REPORTED Normal [facility] Comment on above: Performed By: #### L IP, CMPX, CDP #### [facility] [address] [place], [facility]83 Credit Assistant: Nino Farias MD Comp Metabolic Pr/rfx MGon 0 09-08-2018 ALT enzyme act/vol U/L Low 5-33 [facility] Comment on above: Performed By: #### L IP, CMPX, CDP #### [facility] [address] [place], [place] [address]83 Credit Assistant: Nino Farias MD (cont.) Normal [facility] Comment on above: Result Comment: Aver age GFR for 50-59 years old: 93 mL/min/1.73sq m Chronic Kidney Disease: <60 mL/min/1.73sq m Kidney failure: <15 mL/min/1.73sq m eGFR calculated using average adult body mass. Additional eGFR calculator available at: http://www.[employer].TalkBin/multiple_crcl_2011.htm Performed By: #### L IP, CMPX, CDP #### [facility] [address] [place], [place] 0154183 Credit Assistant: Nino Farias MD Albumin mass conc 4.0 g/dL Normal 3.5-5.2 [facility] Comment on above: Performed By: #### L IP, CMPX, CDP #### [facility] [address] [place], [place] 8122183 Credit Assistant: Nino Farias MD Albumin/Globulin mass ratio 1.3 {ratio} Normal 1.0-2.5 [facility] Comment on above: Performed By: #### L IP, CMPX, CDP #### [facility] [address] [place], [place] 9899383 Credit Assistant: Nino Farias MD Alkaline Phos 58 U/L Normal 35-[address] [facility] Comment on above: Performed By: #### L IP, CMPX, CDP #### [facility] [address] [place], [place] 2824183 Credit Assistant: Nino Farias MD Anion gap molar conc 8 mmol/L Low 9-17 [facility] Comment on above: Performed By: #### L IP, CMPX, CDP #### [facility] [address] [place], [place] 1543383 Credit Assistant: Nino Farias MD AST enzyme act/vol 20 U/L Normal <32 [facility] Comment on above: Performed By: #### L IP, CMPX, CDP #### [facility] [address] [place], [place] 1639683 Credit Assistant: Nino Farias MD Bilirubin Ql (U) 0.17 mg/dL Low 0.3-1.2 [facility] Comment on above: Performed By: #### L IP, CMPX, CDP #### [facility] [address] [place], [place] 5337383 Credit Assistant: Nino Farias MD BUN/CRE Ratio 15 Normal 9-[address] [facility] Comment on above: Performed By: #### L IP, CMPX, CDP #### [facility] [address] [place] [address] Credit Assistant: Nino Farias MD Calcium mass conc 9.3 mg/dL Normal 8.6-10.4 [facility] Comment on above: Performed By: #### L IP, CMPX, CDP #### [facility] [address] [place] [address] Credit Assistant: Nino Farias MD Chloride molar conc 97 mmol/L Low 98-107 [facility] Comment on above: Performed By: #### L IP, CMPX, CDP #### [facility] [address] [place], [place] 1122183 Credit Assistant: Nino Farias MD CO2 molar conc 31 mmol/L Normal 20-31 [facility] Comment on above: Performed By: #### L IP, CMPX, CDP #### [facility] [address] [place] [address] Credit Assistant: Nino Farias MD Creatinine mass conc 1.22 mg/dL High 0.50-0.90 [facility] Comment on above: Performed By: #### L IP, CMPX, CDP #### [facility] [address] [place], [place] 8592283 Credit Assistant: Nino Farias MD GFR, Amer 55 mL/min Low >60 [facility] Comment on above: Performed By: #### L IP, CMPX, CDP #### [facility] [address] [place] [address] Credit Assistant: Nino Farias MD GFR,non Amer 45 mL/min Low >60 [facility] Comment on above: Performed By: #### L IP, CMPX, CDP #### [facility] [address] [place] [address] Credit Assistant: Nino Farias MD Glucose mass conc 93 mg/dL Normal 70-99 [facility] Comment on above: Performed By: #### L IP, CMPX, CDP #### [facility] [address] [place], [place] 0281883 Credit Assistant: Nino Farias MD Potassium molar conc 4.5 mmol/L Normal 3.7-5.3 [facility] Comment on above: Performed By: #### L IP, CMPX, CDP #### [facility] [address] [place] [address] Credit Assistant: Nino Farias MD Protein mass conc 7.0 g/dL Normal 6.4-8.3 [facility] Comment on above: Performed By: #### L IP, CMPX, CDP #### [facility] [address] [place] [address] Credit Assistant: Nino Farias MD Sodium molar conc 136 mmol/L Normal 135-144 [facility] Comment on above: Performed By: #### L IP, CMPX, CDP #### [address] [place], [place] 3583683 Credit Assistant: Nino Farias MD Staging: Normal [facility] Comment on above: Result Comment: Stag e 1: Some kidney damage normal GFR Stage 2: Mild kidney damage GFR 60-89 Stage 3: Moderate kidney damage GFR 30-59 Stage 4: Severe kidney damage GFR 15-29 Stage 5: Severe kidney damage GFR <15 ESRD - chronic treatment by dialysis or transplant Performed By: #### L IP, CMPX, CDP #### [facility] [address] [place] [address] Credit Assistant: Nino Farias MD Urea nitrogen mass conc 18 mg/dL Normal 6-20 [facility] Comment on above: Performed By: #### L IP, CMPX, CDP #### [facility] [address] [place], [place] 6577683 Credit Assistant: Nino Farias MD Lactic Acidon 09-08-2018 Lactate molar conc 1.2 mmol/L Normal 0.5-2.2 [facility] Comment on above: Performed By: #### L AC #### [facility] [address] [place], [place] 1967[address]83 Credit Assistant: Nino Farias MD Lipaseon 09-08-2018 Lipase enzyme act/vol 27 U/L Normal 13-60 [facility] Comment on above: Performed By: #### L IP, CMPX, CDP #### [facility] [address] [place], [place] 0537483 Credit Assistant: Nino Farias MD UA w/Reflex Cultureon 2018 Acetoacetic Acid,Ur Negative Normal NEG [facility] Comment on above: Performed By: #### U MICAO, UAX #### [facility] [address] [place], [place] 549[address]83 Credit Assistant: Nino Farias MD Bilirubin.direct mass conc SMALL Abnormal NEG [facility] Comment on above: Performed By: #### U MICAO, UAX #### [facility] [address] [place], [place] 7673683 Credit Assistant: Nino Farias MD Color Nom (U) YELLOW Normal YEL [facility] Comment on above: Performed By: #### U MICAO, UAX #### [facility] [address] [place], [place] 69[address]83 Credit Assistant: Nino Farias MD Glucose mass conc Negative Normal NEG [facility] Comment on above: Performed By: #### U MICAO, UAX #### [facility] [address] [place], [place] 4994083 Credit Assistant: Nino Farias MD Hemoglobin mass conc (Bld) Negative Normal NEG [facility] Comment on above: Performed By: #### U MICAO, UAX #### [facility] [address] [place], [place] 4020883 Credit Assistant: Nino Farias MD Leuckocyte Esterase Negative Normal NEG [facility] Comment on above: Performed By: #### U MICAO, UAX #### [facility] [address] [place], [place] 9018483 Credit Assistant: Nino Farias MD Nitrite,Ur Negative Normal NEG [facility] Comment on above: Performed By: #### U MICAO, UAX #### [facility] [address] [place], [place] 8278283 Credit Assistant: Nino Farias MD PH,Ur 5.5 Normal 5.0-9.0 [facility] Comment on above: Performed By: #### U MICAO, UAX #### [facility] [address] [place], [facility] Credit Assistant: Nino Farias MD Protein mass conc Negative Normal NEG [facility] Comment on above: Performed By: #### U MICAO, UAX #### [facility] [address] [place], [place] 0089583 Credit Assistant: Nino Farias MD Spec. [place],Ur 1.010 Normal 1.010-1.020 [facility] Comment on above: Performed By: #### U MICAO, UAX #### [facility] [address] [place], [place] 7688983 Credit Assistant: Nino Farias MD Turbidity CLEAR Normal CLEAR [facility] Comment on above: Performed By: #### U MICAO, UAX #### [facility] [address] [place], [place] 6297783 Credit Assistant: Nino Farias MD Urobilinogen,Ur Normal Normal NORM [facility] Comment on above: Performed By: #### U MICAO, UAX #### [facility] [address] [place] [id number] Credit Assistant: Nino Farias MD Comment NOT REPORTED Normal [facility] Comment on above: Performed By: #### U MICAO, UAX #### [facility] [address] [place] [id number] Credit Assistant: Nino Farias MD Urinalysis,Microon 9 ----- Normal [facility] Comment on above: Performed By: #### U MICAO, UAX #### [facility] [address] [place], [facility] Credit Assistant: Nino Farias MD Bacteria LM.HPF #/area (Urine sed) TRACE Abnormal [facility] Comment on above: Performed By: #### U MICAO, UAX #### [address] [place] [id number] Credit Assistant: Nino Farias MD Epithelial cells LM.HPF #/area (Urine sed) None Normal 0-25 [facility] Comment on above: Performed By: #### U MICAO, UAX #### [address] [place], [facility]83 Credit Assistant: Nino Farias MD RBC #/vol (U) None Normal 0-[address] [facility] Comment on above: Performed By: #### U MICAO, UAX #### [facility] [address] [place], [facility]83 Credit Assistant: Nino Farias MD WBC #/vol (U) 0 TO 2 Normal 0-[address] [facility] Comment on above: Performed By: #### U MICAO, UAX #### [facility] [address] [place] [address] Credit Assistant: Nino Farias MD Amorphous sediment LM Ql (Urine sed) NOT REPORTED Normal [facility] Comment on above: Performed By: #### U MICAO, UAX #### [facility] [address] [place] [address] Credit Assistant: Nino Farias MD Casts LM.LPF #/area (Urine sed) NOT REPORTED Normal [facility] Comment on above: Performed By: #### U MICAO, UAX #### [facility] [address] [place], [place] [id number] Credit Assistant: Nino Farias MD Crystals LM Nom (Urine sed) NOT REPORTED Normal NONE [facility] Comment on above: Performed By: #### U MICAO, UAX #### [facility] [address] [place] [address] Credit Assistant: Nino Farias MD Epithelial, Renal NOT REPORTED Normal 0 [facility] Comment on above: Performed By: #### U MICAO, UAX #### [facility] [address] [place], [facility] Credit Assistant: Nino Farias MD Mucus Strands NOT REPORTED Normal NONE [facility] Comment on above: Performed By: #### U MICAO, UAX #### [facility] [address] [place] [address] Credit Assistant: Nino Farias MD Other Observations NOT REPORTED Normal NREQ [facility] Comment on above: Performed By: #### U MICAO, UAX #### [facility] [address] [place] [address] Credit Assistant: Nino Farias MD Trichomonas NOT REPORTED Normal NONE [facility] Comment on above: Performed By: #### U MICAO, UAX #### [facility] [address] [place], [place] [id number] Credit Assistant: Nino Farias MD Yeast LM Ql (Urine sed) NOT REPORTED Normal NONE [facility] Comment on above: Performed By: #### U MICAO, UAX #### [facility] [address] [place] [address] [place] [address] Credit Assistant: Nino Farias MD Vital Signs Date Time Vital Sign Value Performing Clinician Gonzaloedy [email or web address] 07-05-2023 22:13-0500 Diastolic blood pressure 74 mm[Hg] Arsenio Mario [facility] 07-05-2023 22:13-0500 Heart rate 62 /min Arsenio Mario [facility] 07-05-2023 22:13-0500 Mean blood pressure 85 mm[Hg] Arsenio Mario [facility] 07-05-2023 22:13-0500 Respiratory rate 14 /min Arsenio Mario [facility] 07-05-2023 22:13-0500 SaO2% (BldA) [Mass fraction] 99 % Arsenio Mario [facility] 07-05-2023 22:13-0500 Systolic blood pressure 107 mm[Hg] Arsenio Mario [facility] 07-05-2023 21:49-0500 Diastolic blood pressure 69 mm[Hg] Arsenio Mario [facility] 07-05-2023 21:49-0500 Heart rate 59 /min Arsenio Mario [facility] 07-05-2023 21:49-0500 Mean blood pressure 80 mm[Hg] Arsenio Mario [facility] 07-05-2023 21:49-0500 Respiratory rate 15 /min Arsenio Mario [facility] 07-05-2023 21:49-0500 SaO2% (BldA) [Mass fraction] 97 % Arsenio Mario [facility] 07-05-2023 21:49-0500 Systolic blood pressure 101 mm[Hg] Arsenio Mario [facility] 07-05-2023 21:02-0500 Diastolic blood pressure 77 mm[Hg] Arsenio Mario [facility] 07-05-2023 21:02-0500 Heart rate 60 /min Arsenioulises Martin [facility] 07-05-2023 21:02-0500 Mean blood pressure 86 mm[Hg] Arsenio Mario [facility] 07-05-2023 21:02-0500 Respiratory rate 16 /min Arsenioulises Martin [facility] 07-05-2023 21:02-0500 SaO2% (BldA) [Mass fraction] 99 % Arsenio Mario [facility] 07-05-2023 21:02-0500 Systolic blood pressure 105 mm[Hg] Arsenio Mario [facility] 07-05-2023 17:45-0500 Body temperature 97.52 [degF] Arsenio Mario [facility] 07-05-2023 16:27-0500 Body temperature 96.44 [degF] Arsenio Mario [facility] 07-05-2023 15:15-0500 gluc 136 mg/dL Arsenio Martin [facility] 07-05-2023 15:15-0500 gluc Arsenioulises Martin [facility] 07-05-2023 15:02-0500 Body temperature 95.9 [degF] Arsenio Martin [facility] 07-05-2023 15:02-0500 Heart rate 54 /min Arsenio Martin [facility] 07-05-2023 15:02-0500 Respiratory rate 16 /min Arsenio Mario [facility] 08-09-2022 17:25-0400 Diastolic blood pressure 64 mm[Hg] Arsenio Mario [facility] 08-09-2022 17:25-0400 Heart rate 75 /min Arsenio Mario [facility] 08-09-2022 17:25-0400 Mean blood pressure 83 mm[Hg] Arsenio Mario [facility] 08-09-2022 17:25-0400 Respiratory rate 16 /min Arsenio Mario [facility] 08-09-2022 17:25-0400 SaO2% (BldA) [Mass fraction] 96 % Arsenio Mario [facility] 08-09-2022 17:25-0400 Systolic blood pressure 122 mm[Hg] Arsenio Mario [facility] 08-09-2022 16:00-0400 Diastolic blood pressure 56 mm[Hg] Arsenio Mario [facility] 08-09-2022 16:00-0400 Heart rate 64 /min Arsenio Mario [facility] 08-09-2022 16:00-0400 Mean blood pressure 72 mm[Hg] Arsenio Mario [facility] 08-09-2022 16:00-0400 SaO2% (BldA) [Mass fraction] 92 % Arsenio Mario [facility] 08-09-2022 16:00-0400 Systolic blood pressure 103 mm[Hg] Arsenio Mario [facility] 08-09-2022 15:00-0400 Diastolic blood pressure 67 mm[Hg] Arsenio Mario [facility] 08-09-2022 15:00-0400 Heart rate 61 /min Arsenio Martin [facility] 08-09-2022 15:00-0400 Mean blood pressure 80 mm[Hg] Arsenio Martin [facility] 08-09-2022 15:00-0400 Systolic blood pressure 106 mm[Hg] Arsenio Martin [facility] 08-09-2022 14:03-0400 SaO2% (BldA) [Mass fraction] 94.1 % Arsenioulises Martin [facility] Resp Auto SS 08-09-2022 13:10-0400 Body temperature 98.24 [degF] Arsenioulises Martin [facility] 08-09-2022 13:10-0400 Heart rate 70 /min Arsenio Martin [facility] 08-09-2022 13:10-0400 Respiratory rate 18 /min Arsenio Mario [facility] Encounters Encounter Date Encounter Type Care Provider Facility Start: 08-11-2023 Evaluation and management of inpatient [facility] Start: 08-10-2023 Evaluation and management of inpatient LOREE [facility] Start: 08-10-2023 End: 08-11-2023 Evaluation and management of inpatient [facility] Start: 07-31-2023 End: 07-31-2023 ambulatory [facility] Start: 07-11-2023 [facility]: 07-08-[facility]23 [facility] of [facility] [place] [facility] Start: 07-06-2023 Evaluation and management of inpatient BARRETT LARSON [facility] Start: 07-06-2023 End: 07-11-2023 Evaluation and management of inpatient ARSENIO MARTIN [facility] Start: 07-05-2023 End: 07-06-2023 Emergency department patient visit Arsenio Martin [place] Start: 07-05-2023 End: 07-05-2023 Emergency department patient visit Arsenio Maritn [facility] Start: 06-29-2023 Evaluation and management of inpatient ROSALBA MOSS [facility] Start: 06-29-2023 End: 07-02-2023 Evaluation and management of inpatient SOCORRO Zayas MATTHEW [facility] Start: 08-22-2022 End: 08-24-2022 Evaluation and management of inpatient DR ЕКАТЕРИНА ROBERT . Facility: Start: 08-09-2022 End: 08-09-2022 Emergency department patient visit Arsenio Martin [place] Start: 08-09-2022 End: 08-09-2022 Emergency department patient visit Arsenio Martin [facility] Start: 07-30-2022 End: 08-01-2022 Evaluation and management of inpatient DR ЕКАТЕРИНА ROBERT . Facility: Start: 07-27-2022 End: 07-28-[address] ЕКАТЕРИНА ROBERT . Facility: Start: 05-08-2022 End: 05-09-[address] ЕКАТЕРИНА ROBERT . Facility:[facility] Start: 01-31-2022 End: 01-31-[address] ЕКАТЕРИНА ROBERT . Facility: Start: 11-01-2021 End: 11-03-2021 Evaluation and management of inpatient TAMIE FAJARDO Facility:[facility] Start: 10-31-2021 End: 11-01-2021 Evaluation and management of inpatient DR ЕКАТЕРИНА ROBERT . Facility:[facility] Start: 09-28-2021 End: 09-29-[address] ЕКАТЕРИНА ROBERT . Facility: Start: 09-06-2021 End: 09-07-[address] ЕКАТЕРИНА ROBERT . Facility:[facility] Start: 03-04-2021 End: 03-04-2021 Emergency department patient visit Magdalena Oconnor Facility:[facility] Start: 09-08-2018 End: 09-08-2018 Emergency department patient visit KEISHA DORADO JR [facility] Procedures Date Procedure Procedure Detail Performing Clinician Start: 08-02-2022 Microscopic examinat ion of blood, culture DR ЕКАТЕРИНА ROBERT . Comment on above: Performed By: #### B [id number] ####[facility] [id number] [place], [place] [address]Ru. Nahed Yañez Start: 11-02-2021 Antibody screen HANI SA AD Comment on above: Performed By: #### 3 [id number], [id number] #### [facility] [address] [facility] Start: 07-16-2019 Phalangectomy of toe Fabián Martin Comment on above: medial base proximal phalanx fracture fragment to left 3rd toe Start: 09-08-2018 Urinalysis microscopic only KEISHA DORADO JR Start: 09-08-2018 Urnls dip stick/tabl et rgnt auto w/o microscopy KEISHA DORADO JR Start: 09-08-2018 Assay of lactate WILLIA M ESTRADA WRIGHT Start: 09-08-2018 Assay of lipase KEISHA DORADO JR Start: 09-08-2018 Blood count complete auto&auto difrntl wbc KEISHA DORADO JR Appendectomy Arsenio Martin Tonsillectomy and adenoidectomy Arsenio Martin Payers Date Payer Category Payer Medicare [id number] 2021 Self-pay 2018 Medicare [id number] 1960 Unknown [id number] 2.16.8 [id number] 1960 Unknown [id number] 2.16.8 [id number] 1960 Unknown [id number] 2.16.84 [id number] 1961 Unknown [id number] 2.16.84 [id number] 1961 Unknown [id number] 2.16.84 [id number] 1961 Unknown [id number] 2.16.84 [id number] 1961 Unknown [id number] 2.16.84 [id number] 1961 Unknown [id number] 2.16.84 [id number] 1961 Unknown [id number] 2.16.84 [id number] 1961 Unknown [id number] 2.16.84 [id number] 1961 Unknown [id number] 2.16.8 [id number] 1961 Unknown [id number] 2.16.8 [id number] 1959 Unknown [id number] Unknown [id number] 2.16.8 [id number] Social History Date Type Detail Facility Start: 08-09-2022 Tobacco smoking status Heavy t obacco smoker (finding) [facility] Comment on above: 2 cigarettes a day Sex Assigned At Female [facility] Functional Status Date Assessment Result Facility 07-05-2023 Functional Status N/A [facility] 08-09-2022 Functional Status N/A [facility] Clinical Notes 11-03-2021 to 08-11-2023 Note Date & Type Note Facility 08-11-2023 Note [facility] CARDIOLOGY INPAT IENT PROGRESS NOTE Reason for follow up: s/p pacemaker lead revision Subjective Patient examined at bedside after a ppm lead revision performed by Dr. Chance on 08/10/23. She reports more tenderness to area than after the initial procedure. Reports she received medication and has ice pack to help with pain control. Denies chest pain/pressure, SOB, or edema. Patient states she lives in [place] and does not have a car. This limits follow up for her pacemaker however she does have appt scheduled for 08/20 at our [place] [facility]. Plan for a device check to be scheduled as outpatient. Activity and lifting restrictions were reviewed with patient and provided on discharge paperwork. Tele: Atrial paced rate 76-92 ALLERGIES Allergies Allergen Reactions Bee Venom Protein (Honey Bee) Hives Hay Fever And Allergy Relief House Dust CURRENT MEDS albuterol, 2 puff, inhalation, TID ALPRAZolam, 1 mg, oral, BID BETA aspirin, 81 mg, oral, Daily atorvastatin, 80 mg, oral, Daily busPIRone, 10 mg, oral, BID clopidogrel, 75 mg, oral, Daily dapagliflozin propanediol, 10 mg, oral, Daily enoxaparin, 40 mg, subcutaneous, Daily furosemide, 40 mg, oral, Daily gabapentin, 300 mg, oral, TID levothyroxine, 75 mcg, oral, Daily pantoprazole, 40 mg, oral, Daily before breakfast spironolactone, 25 mg, oral, Daily traZODone, 50 mg, oral, Nightly PRN medications: cyclobenzaprine, oxyCODONE-acetaminophen Objective Patient Vitals for the past 24 hrs: BP Temp Temp src Pulse Resp SpO2 Weight 08/11/23 0800 126/87 -- -- 88 20 97 % -- 08/11/23 0746 (!) 128/99 35.8 ???C (96.4 ???F) Temporal 88 16 93 % -- 08/11/23 0452 -- -- -- -- -- -- 77.6 kg (171 lb) 08/11/23 0400 119/82 -- -- 79 12 95 % -- 08/11/23 0200 (!) 117/93 -- -- 79 16 93 % -- 08/11/23 0000 123/79 -- -- 83 17 94 % -- 08/10/23 2000 118/73 36.8 ???C (98.3 ???F) Temporal 77 24 96 % -- 08/10/23 1800 136/70 -- -- 76 18 95 % -- 08/10/23 1627 116/85 -- -- 79 24 96 % -- 08/10/23 1530 137/81 -- -- 79 21 97 % -- 08/10/23 1500 128/81 -- -- 85 22 92 % -- 08/10/23 1400 116/65 -- -- 79 18 94 % -- 08/10/23 1330 139/75 -- -- 80 20 97 % -- 08/10/23 1315 127/80 -- -- 82 15 97 % -- 08/10/23 1300 128/73 -- -- 77 19 96 % -- 08/10/23 1245 140/75 -- -- 81 18 96 % -- 08/10/23 1230 145/83 -- -- 77 18 96 % -- 08/10/23 1215 (!) 139/96 -- -- 80 20 -- -- 08/10/23 1200 131/75 -- -- 79 18 -- -- 08/10/23 1145 144/85 -- -- 79 18 -- -- 08/10/23 1139 151/80 -- -- 81 -- -- -- BP 126/87 Pulse 88 Temp 35.8 ???C (96.4 ???F) (Temporal) Resp 20 Ht 1.715 m (5' 7.5 ) Wt 77.6 kg (171 lb) SpO2 97% BMI 26.39 kg/m??? Wt Readings from Last 3 Encounters: 08/11/23 77.6 kg (171 lb) 07/11/23 70.4 kg (155 lb 3.3 oz) 07/02/23 70.9 kg (156 lb 4.7 oz) General: Awake, alert, appropriate mood / affect, NAD Eyes: Non-injected conjunctiva. EOMI. Neck: supple Pulm: Breath sounds clear to ascultation bilaterally with no wheeze, crackles or rhonchi Cards: HRRR, NL S1, S2. No S3 or S4 gallop. Murmur: none Abd: Soft, Nontender, physiologic bowel sounds are present Extr: Lower extremity edema: none. DP pulses present bilaterally Left subclavian surgical site is clean and dry with occlusive dressing intact, no drainage noted, site soft without hematoma or ecchymosis. Mild tenderness on palpation. Left radial pulse +3. Skin: warm, dry, well perfused Neuro: A&Ox3, No gross deficits Lab Results Component Value Date NA 135 (L) 08/11/2023 K 4.3 08/11/2023 CL 97 (L) 08/11/2023 ANIONGAP 13 08/11/2023 BUN 20 08/11/2023 CREATININE 1.06 08/11/2023 CALCIUM 9.0 08/11/2023 MG 2.3 07/07/2023 PHOS 5.2 (H) 07/06/2023 Lab Results Component Value Date BILITOT 0.5 07/06/2023 ALKPHOS 47 07/06/2023 AST 17 07/06/2023 ALT 13 07/06/2023 PROT 6.8 07/06/2023 ALBUMIN 4.6 07/06/2023 Lab Results Component Value Date CHOLESTEROL 143 07/06/2023 TRIGLYCERIDES 159 (H) 07/06/2023 HDL 48 07/06/2023 LDL CHOLESTEROL 89 11/02/2021 LDL CALC 63 07/06/2023 Lab Results Component Value Date BNP 721 (H) 07/06/2023 Lab Results Component Value Date TSH 4.25 07/06/2023 No results found for: DIGOXIN LVL Lab Results Component Value Date HGBA1C 6.8 (H) 07/06/2023 Lab Results Component Value Date WBC 7.21 08/11/2023 RBC 4.61 08/11/2023 HGB 12.9 08/11/2023 HCT 40.8 08/11/2023 MCV 88.5 08/11/2023 MCH 28.0 08/11/2023 MCHC 31.6 (L) 08/11/2023 RDW 17.0 (H) 08/11/2023 NEUTOPHILPCT 61.8 07/11/2023 LYMPHOPCT 27.4 07/11/2023 MONOPCT 7.4 07/11/2023 EOSPCT 2.8 07/11/2023 BASOPCT 0.3 07/11/2023 NEUTROABS 7.12 07/11/2023 LYMPHSABS 3.16 07/11/2023 MONOSABS 0.85 07/11/2023 EOSABS 0.32 07/11/2023 BASOSABS 0.03 07/11/2023 PLT 239 08/11/2023 NRBC 0.0 07/11/2023 XR chest 1 view Result Date: 08/11/2023 No acute cardiopulmonary process after revision left chest wall cardiac conduction device Electronically signed: ROSAMARIA ELENA (more content not included)... 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 female who came from home with 63 y.o. female with PMHx of HTN, [...] a TTE (06/29/2023) that showed EF 60%. In June patient found to have severe bradycardia/junctional rhythm, selective physiology input was obtained and patient was deemed appropriate for permanent pacemaker implantation which patient had not tolerated very well, Patient was brought back to the hospital on account of dislodgment of pacer leads, electrophysiology performed procedure and leads were reinserted without any complication, patient will be monitored overnight for further clinical optimization and stabilization prior to discharge planning as per cardiology input, no shortness of breath, no chest pain or fever reported, patient was taken for 4 pacemaker lead and reinsertion and patient tolerated the procedure very well as per cardiology recommendation the patient was monitored overnight without any events reported, pain management is appropriately, no fever reported, patient discharged to follow-up with the PCP and cardiology as an outpatient Dear Dr. Jakob MD, Vivian is advised to follow up with you within 1-2 weeks. Follow-up with: Cardiology Scheduled appointments: Future Appointments Date Time Provider Department Center 08/21/2023 2:00 PM Nita Bacon NP [facility] Your medication list START taking these medications Instructions Last Dose Given Next Dose Due oxyCODONE-acetaminophen 5-325 mg tablet Commonly known as: Percocet Take 1 tablet by mouth every 8 (eight) hours if needed for severe pain (8-10 pain score) or moderate pain (4-7 pain score) for up to 4 days. CONTINUE taking these medications Instructions Last Dose Given Next Dose Due albuterol 90 mcg/actuation inhaler ALPRAZolam 1 mg tablet Commonly known as: Xanax aspirin 81 mg EC tablet atorvastatin 80 mg tablet Commonly known as: Lipitor busPIRone 10 mg tablet Commonly known as: Buspar clopidogrel 75 mg tablet Commonly known as: Plavix cyclobenzaprine 10 mg tablet Commonly known as: Flexeril Farxiga 10 mg Generic drug: dapagliflozin propanediol furosemide 40 mg tablet Commonly known as: Lasix Take 1 tablet (40 mg) by mouth in the morning. gabapentin 300 mg capsule Commonly known as: Neurontin levothyroxine 75 mcg capsule Commonly known as: Tirosint pantoprazole 40 mg EC tablet Commonly known as: ProtoNix spironolactone 25 mg tablet Commonly known as: Aldactone Take 1 tablet (25 mg) by mouth in the morning for 30 doses. traZODone 50 mg tablet Commonly known as: Desyrel Where to Get Your Medications These medications were sent to [facility]/pharmacy #[id number] AT [place] [address] oxyCODONE-acetaminophen 5-325 mg tablet Vivian is allergic to bee venom protein (honey bee), hay fever and allergy relief, and house dust. Disposition: Home or Self Care () Discharge Condition: Fair Code Status: Full Code Diagnostic Results Hematology: Results from last 7 days Lab Units 08/11/23 0516 WBC AUTO 10*3/uL 7.21 HEMOGLOBIN g/dL 12.9 HEMATOCRIT % 40.8 MCV fL 88.5 PLATELETS AUTO 10*3/uL 239 Chemistry: Results from last 7 days Lab Units 08/11/23 0516 SODIUM mmol/L 135* POTASSIUM mmol/L 4.3 CHLORIDE mmol/L 97* CO2 mmol/L 29 BUN mg/dL 20 CREATININE mg/dL 1.06 GLUCOSE mg/dL 178* CALCIUM mg/dL 9.0 No lab exists for component: AFIO2 , APHT , APCOT , APOT , ATCO2 , CK , ALB , IBILI Test Results Pending At Discharge: Diet at the time of discharge: regular diet and cardiac diet Nutrition Screen Activity: Patient currently has no discharge activity orders Objective Blood pressure 126/87, pulse 88, temperature 35.8 ???C (96.4 ???F), temperature source Temporal, resp. rate 20, h (more content not included)... [facility] 08-10-2023 Note 08/10/23 1645 Admission Assessment Questions Verify insurance with patient Yes Do you understand medical disease or what brought you into the hospital? Yes Who is your current PCP? Екатерина Robert MD Can I schedule a follow up appointment for you at the time of discharge? No (pt will set up d/t transportation needs) Do you understand why you are taking your current medications? Yes Are you taking your medications as prescribed? Yes Did patient provide teach back? No Would you like use our pharmacy [facility] to fill your new medications at the time of Discharge? Yes Does the patient have a case management director assigned to them through their insurance? No Living Arrangement (Current/Prior to Hospitalization) Private residence Does the patient have history of HHC or SNF? No Assistive Device Not applicable Patient's goal for discharge home Was patient reminded that goal for discharge is 11am? Yes Does the patient have transportation at discharge? No Type of Residence/Post Acute Needs Private residence Is PT/OT appropriate? No Is PT/OT ordered? No Is SW consult appropriate? No Is SW consult ordered? No Do you understand the benefits of MyChart? No Were you able to send link and activate MyChart? No [facility] 08-10-2023 Note Hospital Medicine History and Physical 08/10/2023 11:43 AM THE HOSPITALIST TEAM PREFERS TO USE [employer] CHAT FOR COMMUNICATION 7AM-7PM. IF I DO NOT RESPOND WITHIN 15 MINUTES, PLEASE PAGE ME/CALL THROUGH THE FUNERAL ARRANGEMENT DIRECTOR. FROM 7PM-7AM, PLEASE PAGE [phone](COVR) Chief Complaint pacemaker lead failure, status post pacer lead reinsertion History of Present Illness Vivian Vann is an 63 y.o. female who came from home with 63 y.o. female with PMHx of HTN, [...] a TTE (06/29/2023) that showed EF 60%. In June patient found to have severe bradycardia/junctional rhythm, selective physiology input was obtained and patient was deemed appropriate for permanent pacemaker implantation which patient had not tolerated very well, Patient was brought back to the hospital on account of dislodgment of pacer leads, electrophysiology performed procedure and leads were reinserted without any complication, patient will be monitored overnight for further clinical optimization and stabilization prior to discharge planning as per cardiology input, no shortness of breath, no chest pain or fever reported, past medical history, as stated above, Social history, quit smoking long time ago allergies, B venom, house dust, family history positive for hypertension, Review of System and Physical Exam 14 system reviewed and negative except described in HPI, Temp: [35.6 ???C (96.1 ???F)] 35.6 ???C (96.1 ???F) Heart Rate: [79-81] 81 Resp: [15-17] 15 BP: (141-177)/(80-94) 151/80 Physical Exam Review of Systems Neck, supple, Chest wall, no tenderness, Cardiovascular, S1-S2 heard, respiratory, good air entry bilaterally, Abdominal, bowel sounds audible, soft, Skin is warm and dry, Neurological, awake and alert, moving all extremities, Problem List Patient Active Problem List Diagnosis Date Noted Failure of pacemaker lead, initial encounter 08/10/2023 Cardiac pacemaker in situ 07/17/2023 Biventricular cardiac pacemaker malfunction, sequela 08/10/2023 Bradycardia 07/06/2023 NSTEMI (non-ST elevated myocardial infarction) ([facility]) 06/29/2023 Other forms of angina pectoris 06/29/2023 Hypomagnesemia 06/29/2023 Acute midline low back pain without sciatica 06/29/2023 Coronary arteriosclerosis 11/24/2021 Hyperlipidemia 11/24/2021 Type 2 diabetes mellitus ([facility] [facility]) 11/24/2021 Acute non-ST segment elevation myocardial infarction ([facility]) 11/24/2021 Cigarette smoker 11/24/2021 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 Junctional bradycardia 07/05/2023 Assessment and Plan #pacemaker lead failure, ventricular lead dislodged from its insertion site in the right ventricle status post lead reinsertion, monitor overnight as per cardiology input, #chronic HFpEF, clinically compensated, NYHA class II at baseline, #COPD, not in flareup, resume home regimen and keep saturation 92%, #, Coronary disease, continue medical management, stable, #Acquired hypothyroidism, asymptomatic on Synthroid, #GERD without esophagitis, asymptomatic, on PPI, #Unspecified dyslipidemia on Lipitor, #General anxiety, stable, continue home regimen/BuSpar, VTE Prophylaxis: Lovenox ----- Focus of this inpatient stay will [...] this hospital stay by a member of [facility]. Past Medical History No past [...] Substance and Sexual Activity Alcohol use: Not (more content not included)... [facility] 08-10-2023 Note Indications for vent ricular lead repositioning: The patient is a 63-year-old woman who previously underwent dual-chamber pacemaker insertion. The ventricular lead dislodged from its insertion site in the right ventricle and will require replacement. Procedure: After written informed consent was obtained she was brought to the pacemaker laboratory in the fasting state. A contrast injection for venography of the upper extremity was performed to delineate the patency of the insertion site in the left subclavian. The left subclavicular fossa was then prepped and draped in usual manner 1% Xylocaine solution infiltrated for local anesthesia. Utilizing percutaneous technique and access wire was placed into the left subclavian in case it should be needed later. Following initial sharp incision meticulous blunt dissection was used to open the subfascial pocket where in the previously implanted device lie. It was removed and the ventricular lead disconnected from the pulse generator. Using a curved stylette the active-fixation coil of the ventricular lead was retracted and the lead was repositioned into a position into a site in the low right ventricular septum. The active-fixation coil was deployed and the lead was sutured into place with an 0 silk suture. Both leads were then reinserted into the pulse generator. Utilizing off field telemetry adequate sensing and pacing levels were determined. The right ventricular lead had a pacing threshold of 0.8 V at 0.4 ms pulse width with a R wave amplitude of 13.7 mV and impedance of 585 ohms. The right atrial lead had a pacing threshold of 0.5 V at 0.4 ms pulse width with a P wave amplitude of 3.9 mV and impedance of 585 ohms. The pulse generator was sutured into place with an 0 silk suture. The pocket was irrigated with an antibiotic solution. The fascial layer was closed with a continuous 2-0 Vicryl suture. The subdermal area was closed with interrupted 3-0 Biosyn sutures placed utilizing a buried knot technique. The skin surface was closed with Dermabond glue and the wound was dressed with a Telfa pad and Tegaderm dressing. Sponge and needle counts were correct at the end of the case. Conscious sedation was maintained throughout the case with intravenous midazolam and fentanyl. She was returned to the holding area in stable hemodynamic condition Final impressions: 1.Repositioning of right ventricular lead 2. Conscious sedation 3. Fluoroscopy 4. contrast injection for venography of the upper extremity Loree Chance M.D. [facility] Allergy Specialistsheriffs and Pediatrics Director: Cardiac Electrophysiology Program [facility] 08-10-2023 Note Patient: Vivian Dela Cruz or Procedure Information Date/Time: 08/10/23829 Procedure: Pacemaker lead revision - Biotronik Location: [facility] ENSEMBLE MEMBER 1 EP / [facility] HVC VASCULAR LAB (Cath) Providers: Loree Chance MD Clinical information reviewed: Allergies Meds OB Status Physical Exam Airway Mallampati: I Cardiovascular - normal exam Dental - normal exam Pulmonary - normal exam Abdominal - normal exam Anesthesia Plan ASA 1 The patient is not a current smoker. Patient was not previously instructed to abstain from smoking on day of procedure. Patient did not smoke on day of procedure. Education provided regarding risk of obstructive sleep apnea. Anesthetic plan and risks discussed with patient. Use of blood products discussed with patient who. Additional Equipment Requests [facility] 07-11-2023 Note Hospital Medicine Discharge Summary Final [...] [facility] 08/06/2023 1:30 PM [facility] CV CLINIC DEVICE CHECK HVC CARD [facility] Heart[facility]AS Your medication list START taking these [...] last 7 days Lab Units 07/11/23 0529 02/42707/07/2341707/06/23237 WBC AUTO 10*3/uL 11.52* 10.52 < > 14.42* HEMOGLOBIN g/dL 13.1 14.0 < > 12.6 HEMATOCRIT % 40.9 42.6 < > 39.0 MCV fL 87.0 86.2 < > 86.5 PLATELETS AUTO 10*3/uL 339 329 < > 321 INR -- -- -- 1.00 < > = values in this interval not displayed. Chemistry: Results from last 7 days Lab Units 07/11/23 0529 07/10/2342707/09/2344407/08/23 0508 07/07/2341707/06/23237 SODIUM mmol/L 135* 136 136 < > [...] Results from last 7 days Lab Units 07/06/23237 AST U/L 17 ALT U/L 13 ALK [...] 70.4 kg (1 (more content not included)... [facility] 07-11-2023 Note Occupational Therapy Occupational Therapy [...] List Diagnosis NSTEMI (non-ST elevated myocardial infarction) ([facility]) Coronary arteriosclerosis Hyperlipidemia Type 2 diabetes mellitus ([facility]) Acute non-ST segment elevation myocardial infarction ([facility]) Cigarette smoker Other forms of angina pectoris [...] Level of Function Prior Function Level of Daisy: Independent with ADLs and functional transfers, Independent [...] Eating meals?: None (Independent) Total Score OT [facility]: 24 Assessment/Plan OT Assessment OT Education/Comments: (PPM handout issued and discussed with good return demo) Plan OT Plan: No skilled OT OT Discharge Recommendations: Home OT - Discharge Recommendations Placed: Yes OT Goals Multi-Disciplinary Problems (from Occupational Therapy) Active Problems Not on file [facility] 07-11-2023 Note UTP CARDIOLOGY PROGR ESS [...] Normal heart size. Electronically signed: Denver Hernandez. [facility] 06/29/23: Final Impression: 1) Coronary angiogram shows stable CAD 2) right heart catheterization shows severely decompensated heart failure with mean wedge pressure 35 mmHg Plan: 1) optimal med therapy for CAD and HFpEF 2) Aspirin and high intensity statin therapy for CAD 3) optimize medical therapy for HFpEF as tolerated 4) [facility] 06/29/23: Left Ventricle: The left ventricle is normal size. Global left ventricular sys (more content not included)... [facility] 07-11-2023 Note Hospital Medicine Daily Progress Note - 07/11/2023 8:24 AM; Room: [address] [place] [address] Admission: 07/06/2023 12:25 AM; Length of stay: 5 days THE HOSPITALIST TEAM PREFERS TO USE C2FO CHAT FOR COMMUNICATION 7AM-7PM. IF I DO NOT RESPOND WITHIN 15 MINUTES, PLEASE PAGE ME/CALL THROUGH THE FUNERAL ARRANGEMENT DIRECTOR. FROM 7PM-7AM, PLEASE PAGE [phone](COVR) Code Status: Full Code Barriers to Discharge: [...] last 7 days Lab Units 07/11/23 0529 07/10/2342707/07/2341707/06/23237 WBC AUTO 10*3/uL 11.52* 10.52 < > 14.42* HEMOGLOBIN g/dL 13.1 14.0 < > 12.6 HEMATOCRIT % 40.9 42.6 < > 39.0 MCV fL 87.0 86.2 < > 86.5 PLATELETS AUTO 10*3/uL 339 329 < > 321 INR -- -- -- 1.00 < > = values in this interval not displayed. Chemistry: Results from last 7 days Lab Units 07/11/23 0507/10/2342707/09/2344407/08/2350707/07/2341707/06/23237 SODIUM mmol/L 135* 136 136 < > [...] Results from last 7 days Lab Units 07/06/23237 AST U/L 17 ALT U/L 13 ALK PHOS U/L 47 BILIRUBIN TOTAL mg/dL 0.5 Historical Values: (Includes values prior to this admission) Lab Results Component Value Date TSH 4.25 07/06/2023 HDL 48 07/06/2023 LDL 95 07/06/2023 No results found for: [id number] , IRON , TIBC , C3 , [...] clear. Normal heart (more content not included)... [facility] 07-10-2023 Note Indications for dual -chamber [...] of the upper extremity Loree Chance M.D. [facility] Allergy Specialistsheriffs and Pediatrics Director: Cardiac Electrophysiology Program [facility] 07-10-2023 Note Patient: Vivian Dela Cruz or Procedure Information Date/Time: 07/10/23 1500 Procedure: Implant PPM Location: [facility] ENSEMBLE MEMBER 1 / [facility] VASCULAR LAB (Cath) Providers: Loree Chance [...] discussed with patient who. Additional Equipment Requests [facility] 07-10-2023 Note UTP CARDIOLOGY PROGR ESS [...] 07/09/23 1940 93/67 36.7 ???C (98.1 ???F) 17 95 % -- 07/09/23 1546 95/64 36.6 ???C (97.9 ???F) 23 98 % -- 07/09/23 1300 -- -- -- -- -- 100 % -- 07/09/23 1148 90/60 36.7 ???C (98.1 ???F) 70 17 -- -- Physical Exam Vitals [...] lock IV AND sodium chloride CV Testing: [facility] 06/29/23: Final Impression: 1) Coronary angiogram shows stable CAD 2) right heart catheterization shows severely decompensated heart failure with mean wedge pressure 35 mmHg Plan: 1) optimal med therapy for CAD and HFpEF 2) Aspirin and high intensity statin therapy for CAD 3) optimize medical therapy for HFpEF as tolerated 4) [facility] 06/29/23: Left Ventricle: The left [...] 86 QT Interval 466 QTC CALCULATION(BAZETT) 476 R-Shell 34 T Wave Shell [address] & Marked T wave abnormality, consider anterolateral ischemia Prolonged QT Abnormal ECG When compared with ECG of 06-JUL-2023 14:34, T wave inversion less evident in Lateral Confirmed by Yoan GRIJALVA, KIERA Rainey ([id number]) on 07/08/2023 12:23:36 PM Assessment/Plan Junctional bradycardia Abnormal EKG- ST/T wave changes concerning for ischemia- LHC showed stable CAD Ventric (more content not included)... [facility] 07-10-2023 Note Hospital Medicine Daily Progress Note - 07/10/2023 8:08 AM; Room: [address] [place] [address] Admission: 07/06/2023 12:25 AM; Length of stay: 4 days THE HOSPITALIST TEAM PREFERS TO USE C2FO CHAT FOR COMMUNICATION 7AM-7PM. IF I DO NOT RESPOND WITHIN 15 MINUTES, PLEASE PAGE ME/CALL THROUGH THE FUNERAL ARRANGEMENT DIRECTOR. FROM 7PM-7AM, PLEASE PAGE [phone](COVR) Code Status: Full Code Barriers to Discharge: [...] from last 7 days Lab Units 07/10/23 0428 07/09/23 0445 07/08/23 0508 07/07/23 [...] LDL 95 07/06/2023 No results found for: [id number] , IRON , TIBC , C3 , [...] need to arrange for her transportation needs; creative services writer provided printed information to Pt for local [employer] companies for Pt (more content not included)... [facility] 07-09-2023 Note Patient admitted to the hospital for: Bradycardia. Chart echo from 06/29/2023 reports: EF 60%. Echo report does Not qualify for Cardiac Rehab services per CMS eligibility criteria. A Cardiac Rehab referral must also meet CMS criteria. Marline Suarez, RN, BSN Cardiopulmonary Rehab Coordinator [facility] 07-09-2023 Note Cardiology Inpatient Progress Note [...] 86 QT Interval 466 QTC CALCULATION(BAZETT) 476 R-Shell 34 T Wave Shell [address] & Marked [...] less evident in Lateral Confirmed by Yoan GRIJALVA SAMER J. (57) on 07/08/2023 12:23:36 PM 06/29/23 [facility] Final Impression: 1) Coronary angiogram shows stable CAD 2) right heart catheterization shows severely decompensated heart failure with mean wedge pressure 35 mmHg Plan: 1) optimal med therapy for CAD and HFpEF 2) Aspirin and high intensity statin therapy for CAD 3) optimize medical therapy for HFpEF as tolerated 4) [facility] Hemodynamic Data: RA: 17 mmHg RV: [...] of bradycardia. Patient has been transferred to [facility] for consideration of pacemaker placement. As per patient, her heart rate was 18 at the outside hospital, however I could not confirm from any documentation. During the current hospitalization, so far patient's heart rate has been ranging 40-50. EKG performed in the ED showed diffuse T wave inversions with junctional rhythm. Telemetry shows sinus bradycardia a (more content not included)... [facility] 07-09-2023 Note Hospital Medicine Daily Progress Note - 07/09/2023 11:10 AM; Room: [facility]/[address] [place] [address] Admission: 07/06/2023 12:25 AM; Length of stay: 3 days THE HOSPITALIST TEAM PREFERS TO USE C2FO CHAT FOR COMMUNICATION 7AM-7PM. IF I DO NOT RESPOND WITHIN 15 MINUTES, PLEASE PAGE ME/CALL THROUGH THE FUNERAL ARRANGEMENT DIRECTOR. FROM 7PM-7AM, PLEASE PAGE [phone](COVR) Code Status: Full Code Barriers to Discharge: [...] Results from last 7 days Lab Units 07/09/2344407/08/2350707/07/2341707/06/23 0238 WBC AUTO 10*3/uL 11.03* 12.46* < > 14.42* HEMOGLOBIN g/dL 12.3 12.1 < > 12.6 HEMATOCRIT % 37.5 37.9 < > 39.0 MCV fL 87.0 87.9 < > 86.5 PLATELETS AUTO 10*3/uL 285 301 < > 321 INR -- -- -- 1.00 < > = values in this interval not displayed. Chemistry: Results from last 7 days Lab Units 07/09/2344407/08/2350707/07/2341707/06/23 0238 SODIUM mmol/L 136 136 135* 135* [...] LDL 95 07/06/2023 No results found for: [id number] , IRON , TIBC , C3 , [...] Planning TBD Signed Barrett Haider MD MS4 [facility] 07/09/2023 11: (more content not included)... [facility] 07-08-2023 Note ---- Attestation signed by [...] 86 QT Interval 466 QTC CALCULATION(BAZETT) 476 R-Shell 34 T Wave Shell [address] & Marked T wave abnormality, consider anterolateral ischemia Prolonged QT Abnormal ECG When compared with ECG of 06-JUL-2023 14:34, T wave inversion less evident in Lateral Lab Results Component Value Date CKTOTAL 36.0 07/06/2023 TROPONINI 0.12 () 07/06/2023 Complete Echo (TTE) w/wo Imaging Agent, Strain, 3D, Bubble Study Result Date: 06/29/2023 1 1 [facility] Heart Station [address] [place] [address] [phone] (fax) Echocardiogram-[facility] Name: VIVIAN VANN Study Date: 06/29/2023 12:30 PM B/P: 135 mmHg/89 mmHg HR: Date of : 1960 Location: [facility] Height: 67 in. Age: 63 year(s) Patient [...] Valve: The mitr (more content not included)... [facility] 07-08-2023 Note Hospital Medicine Daily Progress Note - 07/08/2023 8:42 AM; Room: [address] [place] [address] Admission: 07/06/2023 12:25 AM; Length of stay: 2 days THE HOSPITALIST TEAM PREFERS TO USE C2FO CHAT FOR COMMUNICATION 7AM-7PM. IF I DO NOT RESPOND WITHIN 15 MINUTES, PLEASE PAGE ME/CALL THROUGH THE FUNERAL ARRANGEMENT DIRECTOR. FROM 7PM-7AM, PLEASE PAGE [phone](COVR) Code Status: Full Code Barriers to Discharge: [...] Units 07/08/23 0508 07/07/23 0418 07/06/23 0238 WBC AUTO 10*3/uL 12.46* 15.03* [...] LDL 95 07/06/2023 No results found for: [id number] , IRON , TIBC , C3 , [...] Planning TBD Signed Barrett Haider MD MS4 [facility] Medicine 07/08/2023 8:42 AM [facility] 07-07-2023 Note ---- Attestation signed by [...] 84 QT Interval 434 QTC CALCULATION(BAZETT) 451 R-Shell 23 T Wave Shell [address] & Marked [...] Bubble Study Result Date: 06/29/2023 1 1 [facility] Heart Station [address] [place], [place] [id number] (fax) Echocardiogram-[facility] Name: VIVIAN VANN Study Date: 06/29/2023 12:30 PM B/P: 135 mmHg/89 mmHg HR: Date of : 1960 Location: [facility] Height: 67 in. Age: 63 year(s) Patient [...] abnormality. Right Ventricle: (more content not included)... [facility] 07-07-2023 Note Hospital Medicine Daily Progress Note - 07/07/2023 10:19 AM; Room: [address] [place] [address] Admission: 07/06/2023 12:25 AM; Length of stay: 1 days THE HOSPITALIST TEAM PREFERS TO USE C2FO CHAT FOR COMMUNICATION 7AM-7PM. IF I DO NOT RESPOND WITHIN 15 MINUTES, PLEASE PAGE ME/CALL THROUGH THE FUNERAL ARRANGEMENT DIRECTOR. FROM 7PM-7AM, PLEASE PAGE [phone](COVR) Code Status: Full Code Barriers to Discharge: [...] 4.6 3.7 CHLORIDE (more content not included)... [facility] 07-06-2023 Note communication receiv ed that Patient stating does not have transportation to return home at discharge At 07/02/2023 discharge, [facility] provided a one-time courtesy taxi cab transportation for Patient to return to her home (Patient's residence is 57 [address] from [facility] and cost for taxi cab was $146); [facility] is not able to provide another taxi cab. The following information was printed and provided to the Patient to make her own transportation arrangements for once she is medically cleared for discharge: [facility] [place] [address] [place] [employer] to ask if non-emergency medical transportation is a covered benefit of the specific plan (https://www.i-nexus.com/contact-us/[place] o/) Taxis in [place] (https://co.jonnie.wa./3086/Taxi) [employer] [phone]-[phone] (8294) [employer] [phone] [facility] 07-06-2023 Note 07/06/23 1625 Referral Data Referral Source ground worker Patient Information Primary Caregiver Self Activities [...] need to arrange for her transportation needs; creative services writer provided printed information to Pt for local taxi [employer] companies for Pt to consider; [facility] unable to pay for another one-time courtesy taxi cab for 57miles one-way trip) [facility] 07-06-2023 Note 1526 creative services writer attempted to meet with Pt to discuss discharge planning (including Patient will need to arrange her transportation once she is medically cleared to discharge to home); Patient not in bed; unable to complete [id number] 1542 creative services writer attempted to meet with Pt to discuss discharge planning (including Patient will need to arrange her transportation once she is medically cleared to discharge to home); Patient caring for toileting hygiene; unable to complete [id number] [facility] 07-06-2023 Note 07/06/23 1219 Admission Assessment [...] Does the patient have a case management director assigned to them through their insurance? No [...] to send link and activate MyChart? Yes [facility] 07-06-2023 Note ---- Attestation signed by [...] Progress Note - 07/06/2023 11:37 AM; Room: [address] [place] [address] Admission: 07/05/2023 11:50 PM; Length of stay: 1 days THE HOSPITALIST TEAM PREFERS TO USE C2FO CHAT FOR COMMUNICATION 7AM-7PM. IF I DO NOT RESPOND WITHIN 15 MINUTES, PLEASE PAGE ME/CALL THROUGH THE FUNERAL ARRANGEMENT DIRECTOR. FROM 7PM-7AM, PLEASE PAGE [phone](COVR) Code Status: Full Code Barriers to Discharge: [...] -Continue home medi (more content not included)... [facility] 07-06-2023 Note . Hospital Medicine History and Physical 07/06/2023 1:19 AM THE HOSPITALIST TEAM PREFERS TO USE [employer] FOR COMMUNICATION 7AM-7PM. IF I DO NOT RESPOND WITHIN 15 MINUTES, PLEASE PAGE ME/CALL THROUGH THE FUNERAL ARRANGEMENT DIRECTOR. FROM 7PM-7AM, PLEASE PAGE [phone](COVR) Chief Complaint No chief complaint on file. History of Present Illness Vivian Vann is an 63 y.o. female who came from home with CP. This is a 63 years old female lady with a medical history of hypertension, tobacco smoking, A-fib, CHF. Came into the [facility] as a direct admit transfer from outside [...] Bradycardia 07/06/2023 NSTEMI (non-ST elevated myocardial infarction) ([facility]) 06/29/2023 Other forms of angina pectoris 06/29/2023 Hypomagnesemia 06/29/2023 Acute midline low back pain without sciatica 06/29/2023 Coronary arteriosclerosis 11/24/2021 Hyperlipidemia 11/24/2021 Type 2 diabetes mellitus ([facility]) 11/24/2021 Acute non-ST segment elevation myocardial infarction ([facility]) 11/24/2021 Cigarette smoker 11/24/2021 Assessment [...] this hospital stay by a member of [facility]. Past Medical History No past [...] (CARDIA) Difficulty of (more content not included)... [facility] 07-05-2023 Evaluation + Plan note Extrac [...] Reflex 07/05/23 * Drug Screen Urine 07/05/23 [facility]02-19-2024 NotePatient admitted to the hospital for: NSTEMI. Review of the last noted chart Echo from 06/29/2023 reports: EF 60%. Reported echo result does not qualify for Cardiac Rehab services per CMS eligibility criteria for CHF. Marline Suarez, RN, BSN [facility] Note07/02/23 1116 Referral Data Referral Source ground worker Patient Information Primary Caregiver Self Activities of Daily Living Assistive Device Not applicable Living Arrangement (Current/Prior to Hospitalization) Private residence;Home self care Behavior Oriented Communication Talks;Understands speaking Discharge Planning Support Systems Therapist (planning discharge to home; communication rcvd Pt not wanting [facility] services) Type of Residence/Post Acute Needs Private residence Will patient need Precert for Post Acute needs? No Patient's goal for discharge home RucCC screened; Pt declining HHC, SW Consult resolved 1340 Communication received that Pt needing transportation to home since was transferred here from [facility], does not drive, lives alone, does not have friends or family who can transport ([phone]) PC to [employer]; from [address] [place] [address] [place] [address] will be $146 Sleeve Presser Operator provided verbal estimate to team supervisor, verbal approval from team supervisor 1408 taxi cab transportation arranged; bedside RN notified Confirmation #: [id number] Passenger: VIVIAN VANN Phone Number: [phone] Pickup Date/Time: 07/02/2023 3:00 PM Pickup Address: [facility], [address] [place] [address], [address] Drop Off Address: [address] [place] [address]. Ride Notes: please pickup at [facility]02-19-2024 Note07/02/23 1017 Admission Assessment Questions Verify [...] Does the patient have a case management director assigned to them through their insurance? No [...] able to send link and activate MyChart? [facility]02-19-2024 Note Attestation signed by Merritt Guerrero [...] Value Ventricular Rate 61 Atrial Rate 61 NM Interval 150 QRS DURATION 88 QT Interval 476 QTC CALCULATION(BAZETT) 479 P Shell 68 R-Shell 25 T Wave Shell 128 Impression Normal sinus rhythm Right atrial [...] Bubble Study Result Date: 06/29/2023 1 1 [facility] Heart Station [address] [place] [address] [phone] (fax) Echocardiogram-[facility] Name: VIVIAN VANN Study Date: 06/29/2023 12:30 PM B/P: 135 mmHg/89 mmHg HR: Date of : 1960 Location: [facility] Height: 67 in. Age: 63 year(s) Patient [...] ventricular systolic function. Dop (more content not included)...[facility]02-18-2024 NoteHospital Medicine Daily Progress Note - 07/01/2023 12:00 PM; Room: [address] [place] [address] Admission: 06/29/2023 11:04 AM; Length of stay: 2 days THE HOSPITALIST TEAM PREFERS TO USE C2FO CHAT FOR COMMUNICATION 7AM-7PM. IF I DO NOT RESPOND WITHIN 15 MINUTES, PLEASE PAGE ME/CALL THROUGH THE FUNERAL ARRANGEMENT DIRECTOR. FROM 7PM-7AM, PLEASE PAGE [phone](COVR) Code Status: Full Code Barriers to Discharge: [...] Principal Problem: NSTEMI (non-ST elevated myocardial infarction) ([facility]) Active Problems: Hyperlipidemia Type 2 diabetes mellitus ([facility]) Other forms of angina pectoris [...] LDL 114 11/02/2021 No results found for: [id number] , IRON , TIBC , C3 , C4 , WENDI , CANCA , ASO , PSA , CEA , CA125 , CA199 , AFP , CA153 Imaging ECG 12 lead Normal sinus rhythm Right atrial (more content not included)...[facility] 07-01-2023 Note Attestation signed by Merritt [...] Value Ventricular Rate 61 Atrial Rate 61 NM Interval 150 QRS DURATION 88 QT Interval 476 QTC CALCULATION(BAZETT) 479 P Shell 68 R-Shell 25 T Wave Shell 128 Impression Normal sinus rhythm Right atrial [...] Bubble Study Result Date: 06/29/2023 1 1 [facility] Heart Station [address] [phone] (fax) Echocardiogram-[facility] Name: VIVIAN VANN Study Date: 06/29/2023 12:30 PM B/P: 135 mmHg/89 mmHg HR: Date of : 1960 Location: [facility] Height: 67 in. Age: 63 year(s) Patient [...] Right Ventricle: The r (more content not included)...[facility]02-17-2024 Note Attestation signed by Merritt Guerrero [...] still marginally hypotensive. PCWP was 35 on [facility] yesterday. Denies CP, SOB or orthopnea. Notices [...] Value Ventricular Rate 61 Atrial Rate 61 NM Interval 150 QRS DURATION 88 QT Interval 476 QTC CALCULATION(BAZETT) 479 P Shell 68 R-Shell 25 T Wave Shell 128 Impression Normal sinus rhythm Right atrial [...] Bubble Study Result Date: 06/29/2023 1 1 [facility] Heart Station [address] [address] [phone] (fax) Echocardiogram-[facility] Name: VIVIAN VANN Study Date: 06/29/2023 12:30 PM B/P: 135 mmHg/89 mmHg HR: Date of : 1960 Location: [facility] Height: 67 in. Age: 63 year(s) Patient [...] Mild Mild N (more content not included)... [facility]02-17-2024 NoteHospital Medicine Daily Progress Note - 06/30/2023 11:32 AM; Room: [address] [place] [address] Admission: 06/29/2023 11:04 AM; Length of stay: 1 days THE HOSPITALIST TEAM PREFERS TO USE C2FO CHAT FOR COMMUNICATION 7AM-7PM. IF I DO NOT RESPOND WITHIN 15 MINUTES, PLEASE PAGE ME/CALL THROUGH THE FUNERAL ARRANGEMENT DIRECTOR. FROM 7PM-7AM, PLEASE PAGE [phone](COVR) Code Status: Full Code Barriers to Discharge: [...] Principal Problem: NSTEMI (non-ST elevated myocardial infarction) ([facility]) Active Problems: Hyperlipidemia Type 2 diabetes mellitus ([facility]) Other forms of angina pectoris [...] LDL 114 11/02/2021 No results found for: [id number] , IRON , TIBC , C3 , C4 , WENDI , CANCA , ASO , PSA , CEA , CA125 , CA199 , AFP , CA153 Imaging ECG 12 lead Normal sinus rhythm Right atrial enlargement ST & T wave abnormality, consider ante (more content not included)...[facility]02-16-2024 NotePatient: Vivian Aguillondor Procedure Information Date/Time: 06/29/23 1655 Procedure: Coronary angiography Location: [facility] ENSEMBLE MEMBER 3 / [facility] (Cath) Providers: Ortiz Aquino [...] who. Plan discussed with attending. Additional [facility] Note Hospital Medicine History and Physical 06/29/2023 12:51 PM THE HOSPITALIST TEAM PREFERS TO USE C2FO CHAT FOR COMMUNICATION 7AM-7PM. IF I DO NOT RESPOND WITHIN 15 MINUTES, PLEASE PAGE ME/CALL THROUGH THE FUNERAL ARRANGEMENT DIRECTOR. FROM 7PM-7AM, PLEASE PAGE [phone](COVR) Chief Complaint Direct admission from [facility] for NSTEMI requiring cardiac cath History of Present Illness Vivian Vann is an 63 y.o. female who came from [facility] as direct asmission for NSTEMI. Patient presented 06/28/23 to [facility] for c/o chest pain and lower back pain. Patient troponin level found to be 557 and EKG showed new ischemia and inverted T-waves, NSTEMI. She was given nitroglycerin and started on heparin drip. Patient is 1 year s/p stent placement at [facility] on plavix and aspirin. Dr. Yoo with cardiology agreed to patient transfer here to [facility] with hospital medicine admitting and cardiology consult [...] Low back pending. Laboratory workup here at [facility] shows CBC unremarkable w/ exception of NCHC [...] nursing note reviewed. Exam conducted with a application services manager present. Constitutional: General: She is not in [...] Date Noted NSTEMI (non-ST elevated myocardial infarction) ([facility]) 06/29/2023 Assessment and Plan Chest pain Low Back Pain NSTEMI -Troponin 557 at [facility], troponin now 0.07 - aPTT 67.3, [...] Heparin drip with titratio (more content not included)...[facility]04-05-2023 NoteMicrobiology PROCEDURE: Blood Culture Charcoal [R1] SOURCE: Blood BODY SITE: Arm R COLLECTED DATE/TIME: 08/09/2022 14:30 EDT RECEIVED DATE/TIME: 08/09/2022 15:53 EDT START DATE/TIME: 08/09/2022 15:53 EDT FREE TEXT SOURCE: IV start/right forearm Nic BOND, Clinton Lucero PA-C, Clinton Whyte FINAL REPORTS Final Report [] Verified Date/Time: 08/16/2022 16:07 EDT No growth at 7 days. Performing Locations R1: [facility]: [facility], [address] [place] [address], [id number]- , , [facility]iffin HospitalComment on above:Performed By: #### [id number] ####[facility] [address] [place], [place] [id number] NoteMicrobiology PROCEDURE: Blood Culture Charcoal [R1] SOURCE: Blood BODY SITE: Arm L COLLECTED DATE/TIME: 08/09/2022 14:09 EDT RECEIVED DATE/TIME: 08/09/2022 14:17 EDT START DATE/TIME: 08/09/2022 14:17 EDT FREE TEXT SOURCE: lt reshma Lucero PA-C, Clinton Lucero PA-C, Clinton Whyte FINAL REPORTS Final Report [] Verified Date/Time: 08/16/2022 15:58 EDT No growth at 7 days. Performing Locations R1: This test was performed at: [facility], [address] [place] [address], [id number], [facility]iff[facility] HospitalComment on above:Performed By: #### [id number] ####[facility] [address] [place] [address] [id number] Hospital Discharge instructions Patient Education 08/09/2022 16:50:59 [...] Follow these instructions at home: Medicines Take abgb-nml-cbwzgee and prescription medicines (inhaled or pills) only [...] 02/07/2006 Document Revised: 04/12/2018 Document Reviewed: 06/04/2017 [employer] Patient Education 2020 [employer]. Follow Up Care 08/09/2022 13:09:28 With:Екатерина Robert Address: [address] [place] [id number] Business (1) When:08/12/2022 16:50:37 Comments:Call the office [...] you develop any new or worsening symptoms. [facility]03-29-2023 Evaluation + Plan noteExtracted from: Title:ED Note Author:iNc BOND, Clinton Whyte Eliud e:08/09/22 COPD exacerbation (J44.1: Ch ronic obstructive pulmonary disease with (acute) exacerbation) Orders: albuterol-ipratropium, 3 mL, Soln-Inh, Inhalation, Once, Stop date 08/09/22 13:50:00 EDT, STAT, Start date 08/09/22 13:50:00 EDT brompheniramine/dextromethorphan/PSE, 5 mL, Oral, QID for cold symptoms, 200 mL, Refill(s) 0, [facility], 170.2, cm, 08/09/22 13:13:00 EDT, Height/Length Dosing, 81.6, kg, 08/09/22 13:13:00 EDT, Weight Dosing guaifenesin, 600 mg = 1 tab(s), Oral, q12hr, X 7 day(s), # 14 tab(s), Refills(s) 0, Pharmacy: [facility], 170.2, cm, 08/09/22 13:13:00 EDT, Height/Length [...] day(s), # 15 tab(s), Refills(s) 0, Pharmacy: [facility], 170.2, cm, 08/09/22 13:13:00 EDT, Height/Length Dosing, [...] Charcoal 08/09/22 * Blood Culture Charcoal 08/09/22 [facility]06-23-2022 NoteMR#: [id number] I [facility] Pt. Name: Vivian Vann Admitted: 11/01/2021 Discharged: 11/03/2021 Date of : 1960 Physician: Tamie Fajardo MD DISCHARGE SUMMARY PRINCIPAL DIAGNOSIS: Inh-RU-beespdixu myocardial infarction. SECONDARY DIAGNOSES: 1. Questionable small subsegmental PE in the right lower lobe, favored to be chronic per CT angio done outside facility. 2. Peptic ulcer disease. 3. Depression. 4. Chronic obstructive pulmonary disease. 5. THC use. 6. Nicotine use. HOSPITAL COURSE: Again, the patient was admitted to the hospital on 11/01/2021, with chest pain and she was found to have a nrk-NO-ycvxepwuw IL. The patient underwent cardiac catheterization and [...] P/Tamie Fajardo MD Date Trans: 11/03/2021 01:10 P/mmo [id number] cc: Gasper Avendano M.D. [facility]5 [facility] [address] Екатерина Robert M.D. [facility] [address] [place] [address]., [facility] [id number] Narrative No data available for this section [facility] Discharge instructions No data available for this section [facility] HospitalProgress note No data available for this section [facility] Summary Purpose Family History No Family [...] and content) DATE CREATED AUTHOR 09/12/2018 [facility] DATE CREATED AUTHOR AUTHOR'S ORGANIZ ATION 01/06/2022 [facility] DATE CREATED AUTHOR AUTHOR'S ORGANIZ ATION 09/05/2022 [facility] DATE CREATED AUTHOR AUTHOR'S ORGANIZ ATION 07/13/2023 [facility] DATE CREATED AUTHOR AUTHOR'S ORGANIZ ATION 08/04/2023 [facility] DATE CREATED AUTHOR AUTHOR'S ORGANIZ ATION 08/11/2023 [facility] Patient Care team informatio n (unrecognized section and content) Personnel Name: Екатерина Robert MD Address: Address: [address] [place] [address] Personnel Name: Екатерина Robert MD Address: Address: [address] [place] [address] FOR RECORDS PERTAINING TO PATIENTS WHO ARE [...] BE BASED ON THE PRIMARY CLINICAL RECORDS. [employer] [facility]. provides no warranty or guarantee of the accuracy or completeness of information in this document.
--- NOTE | 2023-08-20 22:43 | ED.GENADUL1 ---
HPI HPI - General Adult General Chief complaint: Chest Pain Stated complaint: diff breathing Time Seen by Provider: 08/20/23 22:36 Source: patient Mode of arrival: ambulance History of Present Illness HPI narrative: history of anxiety and CAD. Patient tearful. States she lost all her family members and lives alone. Daily smoker. States she has been coughing and has chest pressure. Cough productive of white clear phlegm. No fever. States she also has nausea. Had her pacemaker replaced 2 weeks ago. States there was a problem with a wire of the first pacemaker. No abdominal pain. Has headache that is worse with coughing Related Data Home Medications ?Medication ?Instructions ?Recorded ?Confirmed alprazolam 1 mg tablet 1 mg PO BID 06/10/23 08/21/23 aspirin 81 mg tablet,delayed 81 mg PO DAILY 06/10/23 08/21/23 release atorvastatin 80 mg tablet 80 mg PO DAILY 06/10/23 08/21/23 buspirone 10 mg tablet 10 mg PO BID 06/10/23 08/21/23 clopidogrel 75 mg tablet 75 mg PO DAILY 06/10/23 08/21/23 dapagliflozin propanediol 10 mg 10 mg PO DAILY 06/10/23 08/21/23 tablet (Farxiga) gabapentin 300 mg capsule 300 mg PO TID 06/10/23 08/21/23 trazodone 50 mg tablet 50 mg PO DAILY 06/10/23 08/21/23 albuterol sulfate 90 mcg/actuation 2 puff inhalation Q6H PRN 06/29/23 08/21/23 aerosol inhaler shortness of breath or wheezing pantoprazole 40 mg tablet,delayed 40 mg PO DAILY 06/29/23 08/21/23 release furosemide 40 mg tablet 40 mg PO QAM 07/23/23 08/21/23 spironolactone 25 mg tablet 25 mg PO QAM 07/23/23 08/21/23 ibuprofen 800 mg tablet (IBU) 800 mg PO Q8H PRN pain 08/21/23 08/21/23 Previous Rx's ?Medication ?Instructions ?Recorded levothyroxine 75 mcg tablet 75 mcg PO ACB #30 tabs 06/11/23 carvedilol 12.5 mg tablet (Coreg) 12.5 mg PO BID #60 tabs 08/23/23 isosorbide mononitrate 30 mg 30 mg PO QD #30 tabs 08/23/23 tablet,extended release 24 hr levofloxacin 500 mg tablet 500 mg PO DAILY 7 days #7 tabs 08/23/23 nitroglycerin 0.4 mg sublingual 0.4 mg sublingual Q5M PRN chest 08/23/23 tablet pain #30 tabs prednisone 10 mg tablet 30 mg (3 x 10 mg) PO DAILY #20 tabs 08/23/23 Allergies Allergy/AdvReac Type Severity Reaction Status Date / Time No Known Drug Allergies Allergy Verified 08/20/23 21:47 Opioid HPI Opioid Management Most Recent Opioid Data: Last Pain Scale 6 08/22/23 14:20 Last Pain Intensity 0 08/21/23 15:50 Last Pain Assessment 08/21/23 15:50 Last Pain Assessment 08/23/23 12:14 Last MAR Pain Assessment 08/21/23 13:30 Last ORT Total Score 1 08/21/23 04:10 Last ORT Risk Category Low Risk 08/21/23 04:10 Ur Phencyclidine Scrn Negative (NEGATIVE) 06/10/23 09:30 Review of Systems ROS Status of ROS 10 or more systems reviewed and unremarkable except as noted in history and below [facility] Medical History (Updated 08/21/23 @ 13:49 by CHEL ROSADO) Anxiety ?F41.9 - Anxiety disorder, unspecified (ICD-10) Acute kidney injury ?N17.9 - Acute kidney failure, unspecified (ICD-10) Acute anxiety ?F41.9 - Anxiety disorder, unspecified (ICD-10) Pacemaker ?Z95.0 - Presence of cardiac pacemaker (ICD-10) Iron deficiency anemia ?D50.9 - Iron deficiency anemia, unspecified (ICD-10) COPD (chronic obstructive pulmonary disease) ?J44.9 - Chronic obstructive pulmonary disease, unspecified (ICD-10) Hypoxia ?R09.02 - Hypoxemia (ICD-10) Dyspnea ?R06.00 - Dyspnea, unspecified (ICD-10) Elevated brain natriuretic peptide (BNP) level ?R79.89 - Other specified abnormal findings of blood chemistry (ICD-10) Hypertension ?I10 - Essential (primary) hypertension (ICD-10) Elevated troponin ?R79.89 - Other specified abnormal findings of blood chemistry (ICD-10) Acute dyspnea ?R06.00 - Dyspnea, unspecified (ICD-10) IBS (irritable bowel syndrome) ?K58.9 - Irritable bowel syndrome without diarrhea (ICD-10) Anxiety ?F41.9 - Anxiety disorder, unspecified (ICD-10) Heart attack ?I21.9 - Acute myocardial infarction, unspecified (ICD-10) Sciatic leg pain ?M54.30 - Sciatica, unspecified side (ICD-10) Herniated disc, cervical ?M50.20 - Other cervical disc displacement, unspecified cervical region (ICD-10) Surgical History History of appendectomy ?Z90.49 - Acquired absence of other specified parts of digestive tract (ICD-10) History of heart artery stent ?Z95.5 - Presence of coronary angioplasty implant and graft (ICD-10) Family History Mother Family history of CHF (congestive heart failure) Family history of hypertension Father Family history of CHF (congestive heart failure) Brother Family history of CHF (congestive heart failure) Other Family history of diabetes mellitus Family history of myocardial infarction Social History (Updated 07/29/23 @ 19:35 by Consuelo Dejesus RN) Within the past year, how often did you have a drink containing alcohol: monthly or less Smoking status: Current every day smoker Nicotine containing products detail: 1 pack/week Non-prescribed substance use: cannabis (any form) Non-prescribed substance use details: smokes marijuana, gummies Highest level of school completed/degree received: high school graduate Are you now , , , , never or living with a partner: In a typical week, how many times do you talk on the telephone with family, friends, or neighbors: once per week How often do you get together with friends or relatives: never How often do you attend zoroastrianism or scientology services: 4 or more times per year Do you belong to any clubs or organizations such as zoroastrianism groups unions, fraternal or athletic groups, or school groups: no Total score: 1 Score interpretation: A score of less than or equal to 1 indicates the most socially isolated. Little interest or pleasure in doing things: several days Feeling down, depressed, or hopeless: several days Feel stressed/tense/nervous/anxious/difficulty sleeping: very much Life stressors: recent of family or friend Life stressor details: 2020 lost family Do you think of yourself as: straight/heterosexual Gender Identity: female Exam Constitutional Vital Signs, click to edit/add: Last Vital Signs Temp 98.1 F 08/23/23 07:55 Pulse 79 08/23/23 10:00 Resp 18 08/23/23 07:55 BP 148/84 H 08/23/23 07:55 Pulse Ox 93 L 08/23/23 12:00 O2 Del Method Room Air 08/23/23 12:00 O2 Flow Rate 2 08/21/23 23:36 Common normals: oriented x3, alert and well nourished General appearance: anxious HENMT Common normals: normocephalic and head/scalp atraumatic Eye Common normals: EOMs intact bilaterally and conjunctivae normal Chest Other: pace maker site left upper chest looks good Respiratory Other: diminished breath sounds Cardio Common normals: regular rate, regular rhythm, S1 normal heart sound and S2 normal heart sound GI Common normals: Normal to inspection, nondistended, normoactive bowel sounds present, soft to palpation and non-tender Extremity Common normals: normal to inspection and full ROM Neuro Common normals: oriented x3, CN's II-XII intact bilaterally, moves all extremities, no focal motor deficits and no sensory deficits noted Psych Mood and affect: anxious Course Course Hospital Course: Patient was evaluated in the emergency with gastroenteritis symptoms. But while there had acute onset of shortness of breath and acute hypoxia with O2 saturations of less than 88%. Patient was admitted with elevated troponin although this are chronic for her. They were higher than her previous. They have trended down throughout the hospital stay. She was felt to have an acute exacerbation of COPD, placed on steroids and antibiotics and aerosol treatments with improvement in her shortness of breath and hypoxia. She is been off supplemental oxygen for over 12 hours now, she did have an episode of chest pain relieved by 1 sublingual nitroglycerin. Start patient on Imdur. Reconsult to cardiology. If she has no further chest pain would be considered to stable angina. And cardiology okay with discharge we will discharge patient home in improving condition. Medications see list. Follow-up with me tomorrow or Sunday. Follow-up with cardiology as already planned Vital Signs Vital signs: Vital Signs Temperature 99.7 F 08/20/23 21:41 Pulse Rate 100 H 08/20/23 21:41 Respiratory Rate 20 08/20/23 21:41 Blood Pressure 212/113 H 08/20/23 21:41 Pulse Oximetry 96 08/20/23 21:41 Oxygen Delivery Method Room Air 08/20/23 21:41 Temperature 98.1 F 08/23/23 07:55 Pulse Rate 79 08/23/23 10:00 Respiratory Rate 18 08/23/23 07:55 Blood Pressure 148/84 H 08/23/23 07:55 Pulse Oximetry 93 L 08/23/23 12:00 Oxygen Delivery Method Room Air 08/23/23 12:00 Oxygen Delivery Flow Rate 2 08/21/23 23:36 Medical Decision Making MDM Narrative Medical decision making narrative: patient presents with anxiety, chest pressure. tearful and discussing members of her family who have passed. Daily cigarette smoker and has cough productive of white phlegm. EKG with low voltage and electronic pacemaker. Her troponin is elevated. Chart reviewed and every time her Troponin is checked it is elevated. Discussed with senior medical transcriptionist Sales Executive Dr Chance and felt she could be discharged and follow up in the office. During monitoring her pulse ox decreased to 89%. Patient asymptomatic. Patient does have albuterol at home but not a nebulizer. Given albuterol nebulizer here. Repeat troponin x 3 remains elevated. patient is sleeping and resting . Her RA pulse ox decreased to 86%. discussed with the hospitalist as she will need evaluation for home 02 Lab Data Labs: Lab Results 08/20/23 08/21/23 08/21/23 Range/Units 23:28 01:10 02:51 WBC 11.1 H (4.0-11.0) 10^3/uL RBC 4.30 (4.20-5.40) 10^6/uL Hgb 11.9 L (12.0-16.0) g/dL Hct 39.2 (36.0-48.0) % MCV 91.2 (81.0-99.0) fL MCH 27.7 (26.7-34.0) pg MCHC 30.4 (29.9-35.2) g/dL RDW 15.7 H (11.0-15.0) % Plt Count 328 (150-450) 10^3/uL MPV 9.6 (9.5-13.5) fL Neut % (Auto) 66.3 (43.0-75.0) % Lymph % (Auto) 18.0 L (20.5-60.0) % Burt % (Auto) 7.7 (1.7-12.0) % Eos % (Auto) 7.4 H (0.9-7.0) % Baso % (Auto) 0.4 (0.2-2.0) % Neut # (Auto) 7.3 H (1.4-6.5) 10^3/uL Lymph # (Auto) 2.0 (1.2-3.8) 10^3/uL Burt # (Auto) 0.9 H (0.3-0.8) 10^3/uL Eos # (Auto) 0.8 H (0.0-0.7) 10^3/uL Baso # (Auto) 0.0 (0.0-0.1) 10^3/uL Abs Immat Gran (auto) 0.02 (0.00-0.03) 10^3/uL Imm/Tot Granulo (auto) 0.2 (0.0-0.5) % Sodium (136-145) mmol/L Potassium (3.5-5.1) mmol/L Chloride (98-107) mmol/L Carbon Dioxide (21.0-32.0) mmol/L Anion Gap BUN (7.0-18.0) mg/dL Creatinine (0.55-1.02) mg/dL Est GFR ( Amer) (>=60) Est GFR (Non-Af Amer) (>=60) BUN/Creatinine Ratio Glucose (74-106) mg/dL Calcium (8.5-10.1) mg/dL Total Bilirubin (0.2-1.0) mg/dL AST (15-37) U/L ALT (14-59) U/L Alkaline Phosphatase (46-116) U/L Troponin I High Sens 147.3 H* 152.1 H* 156.0 H* (4.0-51.3) pg/mL NT-Pro-B Natriuret Pep (<=900.0) pg/mL Total Protein (6.4-8.2) g/dL Albumin (3.4-5.0) g/dL Globulin g/dL Albumin/Globulin Ratio 08/21/23 Range/Units 04:25 WBC 8.8 (4.0-11.0) 10^3/uL RBC 4.38 (4.20-5.40) 10^6/uL Hgb 11.8 L (12.0-16.0) g/dL Hct 40.0 (36.0-48.0) % MCV 91.3 (81.0-99.0) fL MCH 26.9 (26.7-34.0) pg MCHC 29.5 L (29.9-35.2) g/dL RDW 15.6 H (11.0-15.0) % Plt Count 298 (150-450) 10^3/uL MPV 10.2 (9.5-13.5) fL Neut % (Auto) 85.0 H (43.0-75.0) % Lymph % (Auto) 11.3 L (20.5-60.0) % Burt % (Auto) 1.4 L (1.7-12.0) % Eos % (Auto) 1.7 (0.9-7.0) % Baso % (Auto) 0.3 (0.2-2.0) % Neut # (Auto) 7.5 H (1.4-6.5) 10^3/uL Lymph # (Auto) 1.0 L (1.2-3.8) 10^3/uL Burt # (Auto) 0.1 L (0.3-0.8) 10^3/uL Eos # (Auto) 0.2 (0.0-0.7) 10^3/uL Baso # (Auto) 0.0 (0.0-0.1) 10^3/uL Abs Immat Gran (auto) 0.03 (0.00-0.03) 10^3/uL Imm/Tot Granulo (auto) 0.3 (0.0-0.5) % Sodium 138 (136-145) mmol/L Potassium 4.5 (3.5-5.1) mmol/L Chloride 100 (98-107) mmol/L Carbon Dioxide 29.4 (21.0-32.0) mmol/L Anion Gap 13.1 BUN 15.0 (7.0-18.0) mg/dL Creatinine 1.01 (0.55-1.02) mg/dL Est GFR ( Amer) >60 (>=60) Est GFR (Non-Af Amer) 56 L (>=60) BUN/Creatinine Ratio 14.9 Glucose 221 H (74-106) mg/dL Calcium 9.4 (8.5-10.1) mg/dL Total Bilirubin 0.4 (0.2-1.0) mg/dL AST 36 (15-37) U/L ALT 49 (14-59) U/L Alkaline Phosphatase 111 (46-116) U/L Troponin I High Sens 133.5 H* (4.0-51.3) pg/mL NT-Pro-B Natriuret Pep 560.0 (<=900.0) pg/mL Total Protein 7.2 (6.4-8.2) g/dL Albumin 3.4 (3.4-5.0) g/dL Globulin 3.8 g/dL Albumin/Globulin Ratio 0.9 Discharge Plan Discharge Chief Complaint: Chest Pain Clinical Impression: Hypoxemia, Anxiety Patient Disposition: Admitted as Observation Discharge Date/Time: 08/21/23 05:16
--- NOTE | 2023-08-20 22:48 | ECG_ITS ---
[facility] Test Date: 2023-08-20 Pat Name: EMERY JETT Department: Room: - Gender: Female Vb Developer: : 1960 Requested By: ЕКАТЕРИНА ROBERT Order Number: [id number] Reading MD: EBONIE BOLIVAR Measurements Intervals [place] Rate: 85 P: 46 TN: 138 QRS: 62 QRSD: 72 T: 79 QT: 320 QTc: 362 Interpretive Statements 83278 Electronic atrial pacemaker (Unreliable analysis due to noise) 4068 Nonspecific Twave abnormality 0102 ARTIFACT PRESENT 9130 borderline ECG Compared to ECG 08/08/2023 06:26:14 No significant changes Electronically Signed On 08-23-2023 23:07:06 EDT by EBONIE BOLIVAR
--- NOTE | 2023-08-20 22:48 | XR_ITS ---
The [address] [address] Patient Name: EMERY JETT MRN: [id number] date: 1960 Sex: F Assigned Patient Location: ER Current Patient Location: ER Accession/Order Number: [id number] Exam Date: 08/20/2023 22:55 Report Date: 08/21/2023 00:17 At the request of: [employer] Procedure: XR chest 1V EXAM: XR chest 1V HISTORY: cough COMPARISON: Chest radiograph dated 08/08/2023. TECHNIQUE: One view of the chest was obtained. FINDINGS: A left chest cardiac pacemaker device is in place. The cardiac silhouette is normal in size. Aortic atherosclerotic disease is seen. The lungs are clear. There is no significant pneumothorax or pleural effusion. No acute osseous abnormality is seen. XR/XR chest 1V IMPRESSION: 1. No acute cardiopulmonary abnormality. Electronically authenticated by: Mendez SCHAEFFER Date: 08/21/2023 00:17
[2023-08-20 23:43] LABS: Basophils Percent Auto 0.4 % (0.2-2.0); Eosinophils Absolute Auto 0.8 10^3/uL (0.0-0.7); Eosinophils Percent Auto 7.4 % (0.9-7.0); Hematocrit 39.2 % (36.0-48.0); Hemoglobin 11.9 g/dL (12.0-16.0); Immature Granulocytes Abs Auto 0.02 10^3/uL (0.00-0.03); Immature Granulocytes Pct Auto 0.2 % (0.0-0.5); Mean Corpuscular HGB Conc 30.4 g/dL (29.9-35.2); Mean Corpuscular Hemoglobin 27.7 pg (26.7-34.0); Mean Corpuscular Volume 91.2 fL (81.0-99.0); Mean Platelet Volume 9.6 fL (9.5-13.5); Monocytes Absolute Auto 0.9 10^3/uL (0.3-0.8); Monocytes Percent Auto 7.7 % (1.7-12.0); Neutrophils Absolute Auto 7.3 10^3/uL (1.4-6.5); Neutrophils Percent Auto 66.3 % (43.0-75.0); Platelet Count 328 10^3/uL (150-450); Red Cell Distribution Width 15.7 % (11.0-15.0); White Blood Count 11.1 10^3/uL (4.0-11.0)
[2023-08-21] VITALS (48 sets, daily range): BP systolic 97–200; BP diastolic 52–117; PULSE 75–96; TEMP 36.5–36.7; O2SAT 85–100; BMI 37.6
[2023-08-21] MEDS: METOCLOPRAMIDE HCL 10 MG/2 ML VIAL IVP (00:10)
[2023-08-21] MEDS: METHYLPREDNISOLONE SOD SUCC PF 125 MG/2 ML VIAL IVP (00:10)
[2023-08-21] MEDS: DIPHENHYDRAMINE HCL 50 MG/ML (1ML) VIAL IV (00:10)
[2023-08-21] MEDS: LORAZEPAM 2 MG/ML VIAL 1 MG IV (00:11)
[2023-08-21 00:17] LABS: Troponin I High Sensitivity 147.3 pg/mL (4.0-51.3)
[2023-08-21 01:42] LABS: Troponin I High Sensitivity 152.1 pg/mL (4.0-51.3)
[2023-08-21] MEDS: IPRATROPIUM/ALBUTEROL SULFATE 3 ML AMPUL.NEB IH ×5 (02:34→23:23)
--- NOTE | 2023-08-21 02:38 | RESP.RT ---
decreased to 2L at this time
--- NOTE | 2023-08-21 03:51 | RESP.RT ---
placed on room air at this time
--- OUTSIDE RECORDS SUMMARY | 2023-08-21 04:07 | XMS_ITS | CCD ---
Author Organization [facility] Care Team Providers Care Banking Pin Adjuster Name Role Phone KEISHA DORADO JR Attending Unavailable PATRICIA CORDERO Primary Care Unavailable TAMIE FAJARDO Attending Unavailable UMAIR MANDUJANO Admitting Unavailable GASPER AVENDANO Referring Unavailable ЕКАТЕРИНА ROBERT Primary Care Unavailable Екатерина Robert Primary Care Physician [phone] JAKOB Dunn, DR WILLAMS Consulting Unavailable JOSELINEY [...] source) bee venom Drug allergy (disorder) 1 [facility] Repository (1 source) house dust allergenic extract; 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: [HOUSE DUST] Drug Allergy 4 [facility] Repository (1 source) BEE VENOM PROTEIN (HONEY BEE); 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: [BEE VENOM PROTEIN (HONEY BEE)] Propensity to adverse reactions to drug (disorder) 4 [facility] Repository (1 source) HAY FEVER AND ALLERGY RELIEF; 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: [HAY FEVER AND ALLERGY RELIEF] Propensity to adverse reactions to drug (disorder) 4 [facility] Repository Medications Current Medications Medication Drug [...] oral solution (2 sources) alpha-Adrenergic Agonist, Uncompetitive Q-aevkap-Z-aspart ate Receptor Antagonist, Sigma-1 Agonist Start: 08-10-19 take 5 mL by mouth four times daily Bromfed DM oral syrup 5 mL, Oral, QID for cold symptoms, 200 mL, Refill(s) 0, [email or web address] [facility], 170.2, cm, 08/09/22 13:13:00 EDT, [...] day(s), # 14 tab(s), Refills(s) 0, Pharmacy: [facility] 1155, 170.2, cm, 08/09/22 13:13:00 EDT, Height/Length [...] day(s), # 15 tab(s), Refills(s) 0, Pharmacy: [facility] 1155, 170.2, cm, 08/09/22 13:13:00 EDT, Height/Length [...] 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 [facility] will continue to follow patient through the [...] appropriate for patient?: Yes New Consults: Normal [facility] 30 The patient is Moderately Stable [...] and maintained or improved Outcome: Progressing Normal [facility] BASIC METABOLIC PANELon 03-3 Anion gap [Moles/Vol] 13 mmol/L Normal 7-20 [facility] Comment on above: Performed By: #### L [id number] ####[facility] (BEAKER)[address] [place] [address] Calcium [Mass/Vol] 9.0 mg/dL Normal 8.6-10.3 [facility] Comment on above: Performed By: #### L [id number] ####[facility] (BEAKER)[address] [place] [address] Chloride [Moles/Vol] 97 mmol/L Low 98-107 [facility] Comment on above: Performed By: #### L [id number] ####[facility] ([facility]AKER)[address] [place] [address] CO2 [Moles/Vol] 29 mmol/L Normal 21-31 [facility] Comment on above: Performed By: #### L [id number] ####[facility] (BEAKER)[address] [place] [address] Creatinine [Mass/Vol] 1.06 mg/dL Normal 0.60-1.20 [facility] Comment on above: Performed By: #### L [id number] ####[facility] ([facility])[address] [place] [address] GLOMERULAR FILTRATION RATE ML/MIN/1.73 SQ M.PREDICTED 59.4 mL/min/1.73m*2 Low >60.0 [facility] Comment on above: Result Comment: [facility]???s estimated glomerular filtration rate (eGFR) will [...] of individuals. Performed By: #### L [id number] ####[facility] ([facility])[address] [place] [address] Glucose [Mass/Vol] 178 mg/dL High 70-100 [facility] Comment on above: Performed By: #### L [id number] ####[facility] ([facility])[address] [place] [address] Potassium [Moles/Vol] 4.3 mmol/L Normal 3.5-5.1 [facility] Comment on above: Performed By: #### L [id number] ####[facility] ([facility])[address] [place] [address] Sodium [Moles/Vol] 135 mmol/L Low 136-145 [facility] Comment on above: Performed By: #### L [id number] ####[facility] ([facility])[address] [place] [address] Urea nitrogen [Mass/Vol] 20 mg/dL Normal 7-25 [facility] Comment on above: Performed By: #### L [id number] ####[facility] ([facility])[address] [place] [address] UREA NITROGEN/CREATININE (MASS RATIO) IN SER/PLAS 18.9 Normal [facility] Comment on above: Performed By: #### L [id number] ####[facility] ([facility])[address] [place] [address] CBCon 08-11-2023 Erythrocyte distribution width (RBC) [Ratio] 17.0 % High 11.5-15.0 [facility] Comment on above: Performed By: #### L [id number] #### [facility] ([facility]) [address] [place] [address] ERYTHROCYTE MEAN CORPUSCULAR HEMOGLOBIN CONCENTRATION (G/DL) BY AUTOMATED 31.6 g/dL Low 32.0-35.0 [facility] Comment on above: Performed By: #### L [id number] #### [facility] ([facility]) [address] [place] [address] Hematocrit (Bld) [Volume fraction] 40.8 % Normal 36.0-48.0 [facility] Comment on above: Performed By: #### L [id number] #### [facility] ([facility]) [address] [place] [address] Hemoglobin (Bld) [Mass/Vol] 12.9 g/dL Normal 12.0-15.0 [facility] Comment on above: Performed By: #### L [id number] #### [facility] ([facility]) [address] [place] [address] MCH (RBC) [Entitic mass] 28.0 pg Normal 27.0-33.0 [facility] Comment on above: Performed By: #### L [id number] #### [facility] ([facility]) [address] [place] [address] MCV (RBC) [Entitic vol] 88.5 fL Normal 82.0-98.0 [facility] Comment on above: Performed By: #### L [id number] #### [facility] [address] [place] [address] PLATELETS (10*3/UL) IN BLOOD AUTOMATED COUNT 239 10*3/uL Normal 150-400 [facility] Comment on above: Performed By: #### L [id number] #### [facility] ([facility]) [address] [place] [address] RBC (Bld) [#/Vol] 4.61 10*6/uL Normal 3.80-5.00 [facility] Comment on above: Performed By: #### L [id number] #### [facility] ([facility]) [address] [place] [address] WBC (Bld) [#/Vol] 7.21 10*3/uL Normal 4.00-10.60 [facility] Comment on above: Performed By: #### L [id number] #### [facility] ([facility]) [address] [place] [address] NURSNOTEon 08-11-2023 NURSNOTE Pt discharged via wheelchair without incident [facility] NURSNOTE AVS reviewed with patient, pt verifies understanding [facility] 30on 08-10-2023 30 The patient is [...] and maintained or improved Outcome: Progressing Normal [facility] HPon 08-10-2023 HP History Of Present [...] pacemaker lead, initial encounter Reposition lead Loree Chance MD [facility] NURSNOTEon 08-10-2023 NURSNOTE CHG wipes and betadine nasal swabs completed. [facility] 07-13-2023 36 Pts phone line is no t working [facility] 07-12-2023 36 Unable to reach pt o r leave message, phone line not in service [facility] 36 Patients phone is no t in working order. Tried calling pts ER contact but it is a food pantry and was only a VM option. Did not leave message. [facility] 07-11-2023 30 The patient is Moderately Stable - Low risk of patient condition declining or worsening The patient's goals for the shift include pain control The clinical goals for the shift include maintain pacemaker precautions Over the shift, the patient did not make progress toward the following goals. Barriers to progression include na. Recommendations to address these barriers include na. [facility] 30 The patient is Moderately [...] safe level of function Outcome: Progressing Normal [facility] BASIC METABOLIC PANELon 06-15 Anion gap [Moles/Vol] 15 mmol/L Normal 7-20 [facility] Comment on above: Performed By: #### L [id number] #### [facility] ([facility]) [address] [place] [address] Calcium [Mass/Vol] 9.4 mg/dL Normal 8.6-10.3 [facility] Comment on above: Performed By: #### L [id number] #### [facility] (BEAKER) [address] [place] [address] Chloride [Moles/Vol] 97 mmol/L Low 98-107 [facility] Comment on above: Performed By: #### L [id number] #### [facility] (BEAKER) [address] [place] [address] CO2 [Moles/Vol] 27 mmol/L Normal 21-31 [facility] Comment on above: Performed By: #### L [id number] #### [facility] (BEAKER) [address] [place] [address] Creatinine [Mass/Vol] 1.15 mg/dL Normal 0.60-1.20 [facility] Comment on above: Performed By: #### L [id number] #### [facility] ([facility] [address] [place] [address] GLOMERULAR FILTRATION RATE ML/MIN/1.73 SQ M.PREDICTED 53.9 mL/min/1.73m*2 Low >60.0 [facility] Comment on above: Result Comment: [facility]???s estimated glomerular filtration rate (eGFR) will [...] individuals. Performed By: #### L [id number] #### [facility] ([facility]) [address] [place] [address] Glucose [Mass/Vol] 143 mg/dL High 70-100 [facility] Comment on above: Performed By: #### L [id number] #### [facility] ([facility]) [address] [place] [address] Potassium [Moles/Vol] 3.9 mmol/L Normal 3.5-5.1 [facility] Comment on above: Performed By: #### L [id number] #### [facility] ([facility]) [address] [place] [address] Sodium [Moles/Vol] 135 mmol/L Low 136-145 [facility] Comment on above: Performed By: #### L [id number] #### [facility] ([facility]) [address] [place] [address] Urea nitrogen [Mass/Vol] 32 mg/dL High 7-25 [facility] Comment on above: Performed By: #### L [id number] #### [facility] ([facility]) [address] [place] [address] UREA NITROGEN/CREATININE (MASS RATIO) IN SER/PLAS 27.8 Normal [facility] Comment on above: Performed By: #### L [id number] #### [facility] ([facility]) [address] [place] [address] CBC WITH AUTO DIFFERENTIALon 07-11-2023 Basophils (Bld) [#/Vol] 0.03 10*3/uL Normal 0.00-0.20 [facility] Comment on above: Performed By: #### L [id number] #### [facility] (BEAKER) [address] [place] [address] Basophils/100 WBC (Bld) 0.3 % Normal 0.0-1.0 [facility] Comment on above: Performed By: #### L [id number] #### [facility] (BEAKER) [address] [place] [address] Eosinophils (Bld) [#/Vol] 0.32 10*3/uL Normal 0.00-0.50 [facility] Comment on above: Performed By: #### L [id number] #### [facility] (BEAKER) [address] [place] [address] Eosinophils/100 WBC (Bld) 2.8 % Normal 0.0-6.0 [facility] Comment on above: Performed By: #### L [id number] #### [facility] ([facility]) [address] [place] [address] Erythrocyte distribution width (RBC) [Ratio] 15.3 % High 11.5-15.0 [facility] Comment on above: Performed By: #### L [id number] #### [facility] ([facility]) [address] [place] [address] ERYTHROCYTE MEAN CORPUSCULAR HEMOGLOBIN CONCENTRATION (G/DL) BY AUTOMATED 32.0 g/dL Normal 32.0-35.0 [facility] Comment on above: Performed By: #### L [id number] #### [facility] ([facility] [address] [place] [address] Hematocrit (Bld) [Volume fraction] 40.9 % Normal 36.0-48.0 [facility] Comment on above: Performed By: #### L [id number] #### [facility] (BEAKER) [address] [place] [address] Hemoglobin (Bld) [Mass/Vol] 13.1 g/dL Normal 12.0-15.0 [facility] Comment on above: Performed By: #### L [id number] #### [facility] (BEAKER) [address] [place] [address] Immature granulocytes (Bld) [#/Vol] 0.04 10*3/uL Normal 0.00-0.20 [facility] Comment on above: Performed By: #### L [id number] #### [facility] (BEAKER) [address] [place] [address] Immature granulocytes/100 WBC (Bld) 0.3 % Normal 0.0-1.0 [facility] Comment on above: Performed By: #### L [id number] #### [facility] [address] [place] [address] Lymphocytes (Bld) [#/Vol] 3.16 10*3/uL Normal 1.20-4.00 [facility] Comment on above: Performed By: #### L [id number] #### [facility] ([facility] [address] [place] [address] Lymphocytes/100 WBC (Bld) 27.4 % Normal 20.0-45.0 [facility] Comment on above: Performed By: #### L [id number] #### [facility] ([facility] [address] [place] [address] MCH (RBC) [Entitic mass] 27.9 pg Normal 27.0-33.0 [facility] Comment on above: Performed By: #### L [id number] #### [facility] ([facility] [address] [place] [address] MCV (RBC) [Entitic vol] 87.0 fL Normal 82.0-98.0 [facility] Comment on above: Performed By: #### L [id number] #### [facility] (BEAKER) [address] [place] [address] Monocytes (Bld) [#/Vol] 0.85 10*3/uL Normal 0.10-1.00 [facility] Comment on above: Performed By: #### L [id number] #### [facility] (BEAKER) [address] [place] [address] Monocytes/100 WBC (Bld) 7.4 % Normal 5.0-12.0 [facility] Comment on above: Performed By: #### L [id number] #### [facility] ([facility]) [address] [place] [address] Neutrophils (Bld) [#/Vol] 7.12 10*3/uL Normal 1.60-7.60 [facility] Comment on above: Performed By: #### L [id number] #### [facility] ([facility]) [address] [place] [address] Neutrophils/100 WBC (Bld) 61.8 % Normal 40.0-72.0 [facility] Comment on above: Performed By: #### L [id number] #### [facility] ([facility]) [address] [place] [address] NRBC (PER 100 WBCS) BY AUTOMATED COUNT 0.0 % Normal 0 [facility] Comment on above: Performed By: #### L [id number] #### [facility] ([facility]) [address] [place] [address] PLATELETS (10*3/UL) IN BLOOD AUTOMATED COUNT 339 10*3/uL Normal 150-400 [facility] Comment on above: Performed By: #### L [id number] #### [facility] ([facility]) [address] [place] [address] RBC (Bld) [#/Vol] 4.70 10*6/uL Normal 3.80-5.00 [facility] Comment on above: Performed By: #### L [id number] #### [facility] ([facility] [address] [place] [address] WBC (Bld) [#/Vol] 11.52 10*3/uL High 4.00-10.60 [facility] Comment on above: Performed By: #### L [id number] #### [facility] (BEAKER) [address] [place] [address] 30on 07-10-2023 30 Problem: Pain - Adul [...] complex ne (more content not included)... Normal [facility] 30 Daily Case Managemen t Update [...] Consultation Consultation and Management 07/06/23 1050 Normal [facility] 30 The patient is Moderately Stable [...] and behaviors that affect risk of falls [place] fall precautions as indicated by assessment Educate [...] and prevent overall improvement and discharge Normal [facility] BASIC METABOLIC PANELon - Anion gap [Moles/Vol] 13 mmol/L Normal 7-20 [facility] Comment on above: Performed By: #### L [id number] ####[facility] ([facility])[address] [place] [address] Calcium [Mass/Vol] 9.9 mg/dL Normal 8.6-10.3 [facility] Comment on above: Performed By: #### L [id number] ####[facility] ([facility])[address] [place] [address] Chloride [Moles/Vol] 97 mmol/L Low 98-107 [facility] Comment on above: Performed By: #### L [id number] ####[facility] ([facility])[address] [place] [address] CO2 [Moles/Vol] 30 mmol/L Normal 21-31 [facility] Comment on above: Performed By: #### L [id number] ####[facility] ([facility])[address] [place] [address] Creatinine [Mass/Vol] 1.06 mg/dL Normal 0.60-1.20 [facility] Comment on above: Performed By: #### L [id number] ####[facility] ([facility])[address] [place] [address] GLOMERULAR FILTRATION RATE ML/MIN/1.73 SQ M.PREDICTED 59.4 mL/min/1.73m*2 Low >60.0 [facility] Comment on above: Result Comment: [facility]???s estimated glomerular filtration rate (eGFR) will [...] of individuals. Performed By: #### L [id number] ####[facility] ([facility])[address] [place] [address] Glucose [Mass/Vol] 139 mg/dL High 70-100 [facility] Comment on above: Performed By: #### L [id number] ####[facility] ([facility])[address] [place] [address] Potassium [Moles/Vol] 3.9 mmol/L Normal 3.5-5.1 [facility] Comment on above: Performed By: #### L [id number] ####[facility] ([facility])[address] [place] [address] Sodium [Moles/Vol] 136 mmol/L Normal 136-145 [facility] Comment on above: Performed By: #### L [id number] ####[facility] ([facility])[address] [place] [address] Urea nitrogen [Mass/Vol] 23 mg/dL Normal 7-25 [facility] Comment on above: Performed By: #### L [id number] ####[facility] ([facility])[address] [place] [address] UREA NITROGEN/CREATININE (MASS RATIO) IN SER/PLAS 21.7 Normal [facility] Comment on above: Performed By: #### L [id number] ####[facility] ([facility])[address] [place] [address] CBC WITH AUTO DIFFERENTIALon 07-10-2023 Basophils (Bld) [#/Vol] 0.02 10*3/uL Normal 0.00-0.20 [facility] Comment on above: Performed By: #### L [id number] ####[facility] ([facility])[address] [place] [address] Basophils/100 WBC (Bld) 0.2 % Normal 0.0-1.0 [facility] Comment on above: Performed By: #### L [id number] ####[facility] (BEAKER)[address] [place] [address] Eosinophils (Bld) [#/Vol] 0.53 10*3/uL High 0.00-0.50 [facility] Comment on above: Performed By: #### L [id number] ####[facility] ([facility])[address] [place] [address] Eosinophils/100 WBC (Bld) 5.0 % Normal 0.0-6.0 [facility] Comment on above: Performed By: #### L [id number] ####[facility] ([facility])[address] [place] [address] Erythrocyte distribution width (RBC) [Ratio] 15.3 % High 11.5-15.0 [facility] Comment on above: Performed By: #### L [id number] ####[facility] ([facility])[address] [place] [address] ERYTHROCYTE MEAN CORPUSCULAR HEMOGLOBIN CONCENTRATION (G/DL) BY AUTOMATED 32.9 g/dL Normal 32.0-35.0 [facility] Comment on above: Performed By: #### L [id number] ####[facility] ([facility])[address] [place] [address] Hematocrit (Bld) [Volume fraction] 42.6 % Normal 36.0-48.0 [facility] Comment on above: Performed By: #### L [id number] ####[facility] [place] [address] Hemoglobin (Bld) [Mass/Vol] 14.0 g/dL Normal 12.0-15.0 [facility] Comment on above: Performed By: #### L [id number] ####[facility] (BEAKER)[address] [place] [address] Immature granulocytes (Bld) [#/Vol] 0.02 10*3/uL Normal 0.00-0.20 [facility] Comment on above: Performed By: #### L [id number] ####[facility] (BEAKER)[address] [place] [address] Immature granulocytes/100 WBC (Bld) 0.2 % Normal 0.0-1.0 [facility] Comment on above: Performed By: #### L [id number] ####[facility] (BEAKER)[address] [place] [address] Lymphocytes (Bld) [#/Vol] 3.34 10*3/uL Normal 1.20-4.00 [facility] Comment on above: Performed By: #### L [id number] ####[facility] (BEAKER)[address] [place] [address] Lymphocytes/100 WBC (Bld) 31.7 % Normal 20.0-45.0 [facility] Comment on above: Performed By: #### L [id number] ####[facility] (BEAKER)[address] [place] [address] MCH (RBC) [Entitic mass] 28.3 pg Normal 27.0-33.0 [facility] Comment on above: Performed By: #### L [id number] ####[facility] (BEAKER)[address] [place] [address] MCV (RBC) [Entitic vol] 86.2 fL Normal 82.0-98.0 [facility] Comment on above: Performed By: #### L [id number] ####[facility] (BEAKER)[address] [place] [address] Monocytes (Bld) [#/Vol] 0.60 10*3/uL Normal 0.10-1.00 [facility] Comment on above: Performed By: #### L [id number] ####[facility] (BEAKER)[address] [place] [address] Monocytes/100 WBC (Bld) 5.7 % Normal 5.0-12.0 [facility] Comment on above: Performed By: #### L [id number] ####[facility] (BEAKER)[address] [place] [address] Neutrophils (Bld) [#/Vol] 6.01 10*3/uL Normal 1.60-7.60 [facility] Comment on above: Performed By: #### L [id number] ####[facility] ([facility]AKER)[address] [place] [address] Neutrophils/100 WBC (Bld) 57.2 % Normal 40.0-72.0 [facility] Comment on above: Performed By: #### L [id number] ####[facility] [place] [address] NRBC (PER 100 WBCS) BY AUTOMATED COUNT 0.0 % Normal 0 [facility] Comment on above: Performed By: #### L [id number] ####[facility] (BEAKER)[address] [place] [address] PLATELETS (10*3/UL) IN BLOOD AUTOMATED COUNT 329 10*3/uL Normal 150-400 [facility] Comment on above: Performed By: #### L [id number] ####[facility] [place] [address] RBC (Bld) [#/Vol] 4.94 10*6/uL Normal 3.80-5.00 [facility] Comment on above: Performed By: #### L [id number] ####[facility] (BEAKER)[address] [place] [address] WBC (Bld) [#/Vol] 10.52 10*3/uL Normal 4.00-10.60 [facility] Comment on above: Performed By: #### L [id number] ####[facility] (BEAKER)[address] [place] [address] HPon 07-10-2023 HP History Of Present Illness [...] Problems: Junctional bradycardia Pacemaker Loree Chance MD [facility] 30on 07-09-2023 30 Problem: Cardiovascular [...] shift include pacemaker placement without issues Normal [facility] 30 Daily Case Managemen t Update [...] Consultation Consultation and Management 07/06/23 1050 Normal [facility] BASIC METABOLIC PANELon 06-15 Anion gap [Moles/Vol] 9 mmol/L Normal 7-20 [facility] Comment on above: Performed By: #### L [id number] #### [facility] ([facility]) [address] [place] [address] Calcium [Mass/Vol] 9.1 mg/dL Normal 8.6-10.3 [facility] Comment on above: Performed By: #### L [id number] #### [facility] ([facility]) [address] [place] [address] Chloride [Moles/Vol] 99 mmol/L Normal 98-107 [facility] Comment on above: Performed By: #### L [id number] #### [facility] ([facility]) [address] [place] [address] CO2 [Moles/Vol] 32 mmol/L High 21-31 [facility] Comment on above: Performed By: #### L [id number] #### [facility] ([facility]) [address] [place] [address] Creatinine [Mass/Vol] 0.98 mg/dL Normal 0.60-1.20 [facility] Comment on above: Performed By: #### L [id number] #### [facility] ([facility]) [address] [place] [address] GLOMERULAR FILTRATION RATE ML/MIN/1.73 SQ M.PREDICTED 65.3 mL/min/1.73m*2 Normal >60.0 [facility] Comment on above: Result Comment: [facility]???s estimated glomerular filtration rate (eGFR) will [...] individuals. Performed By: #### L [id number] #### [facility] ([facility]) [address] [place] [address] Glucose [Mass/Vol] 131 mg/dL High 70-100 [facility] Comment on above: Performed By: #### L [id number] #### [facility] ([facility]ER) [address] [place] [address] Potassium [Moles/Vol] 4.3 mmol/L Normal 3.5-5.1 [facility] Comment on above: Performed By: #### L [id number] #### [facility] [address] [place] [address] Sodium [Moles/Vol] 136 mmol/L Normal 136-145 [facility] Comment on above: Performed By: #### L [id number] #### [facility] ([facility] [address] [place] [address] Urea nitrogen [Mass/Vol] 23 mg/dL Normal 7-25 [facility] Comment on above: Performed By: #### L [id number] #### [facility] ([facility]) [address] [address] UREA NITROGEN/CREATININE (MASS RATIO) IN SER/PLAS 23.5 Normal [facility] Comment on above: Performed By: #### L [id number] #### [facility] ([facility]) [address] [place] [address] CBC WITH AUTO DIFFERENTIALon 07-09-2023 Basophils (Bld) [#/Vol] 0.03 10*3/uL Normal 0.00-0.20 [facility] Comment on above: Performed By: #### L [id number] #### [facility] ([facility] [address] [address] Basophils/100 WBC (Bld) 0.3 % Normal 0.0-1.0 [facility] Comment on above: Performed By: #### L [id number] #### [facility] ([facility]) [address] [place] [address] Eosinophils (Bld) [#/Vol] 0.54 10*3/uL High 0.00-0.50 [facility] Comment on above: Performed By: #### L [id number] #### [facility] ([facility]) [address] [place] [address] Eosinophils/100 WBC (Bld) 4.9 % Normal 0.0-6.0 [facility] Comment on above: Performed By: #### L [id number] #### [facility] ([facility]) [address] [place] [address] Erythrocyte distribution width (RBC) [Ratio] 15.0 % Normal 11.5-15.0 [facility] Comment on above: Performed By: #### L [id number] #### [facility] ([facility]) [address] [place] [address] ERYTHROCYTE MEAN CORPUSCULAR HEMOGLOBIN CONCENTRATION (G/DL) BY AUTOMATED 32.8 g/dL Normal 32.0-35.0 [facility] Comment on above: Performed By: #### L [id number] #### [facility] ([facility]) [address] [place] [address] Hematocrit (Bld) [Volume fraction] 37.5 % Normal 36.0-48.0 [facility] Comment on above: Performed By: #### L [id number] #### [facility] ([facility]) [address] [address] Hemoglobin (Bld) [Mass/Vol] 12.3 g/dL Normal 12.0-15.0 [facility] Comment on above: Performed By: #### L [id number] #### [facility] ([facility]) [address] [place] [address] Immature granulocytes (Bld) [#/Vol] 0.03 10*3/uL Normal 0.00-0.20 [facility] Comment on above: Performed By: #### L [id number] #### [facility] ([facility]) [address] [place] [address] Immature granulocytes/100 WBC (Bld) 0.3 % Normal 0.0-1.0 [facility] Comment on above: Performed By: #### L [id number] #### [facility] ([facility]) [address] [place] [address] Lymphocytes (Bld) [#/Vol] 3.76 10*3/uL Normal 1.20-4.00 [facility] Comment on above: Performed By: #### L [id number] #### [facility] ([facility]) [address] [place] [address] Lymphocytes/100 WBC (Bld) 34.1 % Normal 20.0-45.0 [facility] Comment on above: Performed By: #### L [id number] #### [facility] ([facility]) [address] [place] [address] MCH (RBC) [Entitic mass] 28.5 pg Normal 27.0-33.0 [facility] Comment on above: Performed By: #### L [id number] #### [facility] ([facility]) [address] [place] [address] MCV (RBC) [Entitic vol] 87.0 fL Normal 82.0-98.0 [facility] Comment on above: Performed By: #### L [id number] #### [facility] ([facility]) [address] [place] [address] Monocytes (Bld) [#/Vol] 0.64 10*3/uL Normal 0.10-1.00 [facility] Comment on above: Performed By: #### L [id number] #### [facility] ([facility]) [address] [place] [address] Monocytes/100 WBC (Bld) 5.8 % Normal 5.0-12.0 [facility] Comment on above: Performed By: #### L [id number] #### [facility] ([facility]) [address] [place] [address] Neutrophils (Bld) [#/Vol] 6.03 10*3/uL Normal 1.60-7.60 [facility] Comment on above: Performed By: #### L [id number] #### [facility] (BEAKER) [address] [place] [address] Neutrophils/100 WBC (Bld) 54.6 % Normal 40.0-72.0 [facility] Comment on above: Performed By: #### L [id number] #### [facility] (BEAKER) [address] [place] [address] NRBC (PER 100 WBCS) BY AUTOMATED COUNT 0.0 % Normal 0 [facility] Comment on above: Performed By: #### L [id number] #### [facility] ([facility]) [address] [place] [address] PLATELETS (10*3/UL) IN BLOOD AUTOMATED COUNT 285 10*3/uL Normal 150-400 [facility] Comment on above: Performed By: #### L [id number] #### [facility] ([facility]) [address] [place] [address] RBC (Bld) [#/Vol] 4.31 10*6/uL Normal 3.80-5.00 [facility] Comment on above: Performed By: #### L [id number] #### [facility] ([facility]) [address] [place] [address] WBC (Bld) [#/Vol] 11.03 10*3/uL High 4.00-10.60 [facility] Comment on above: Performed By: #### L [id number] #### [facility] ([facility]) [address] [place] [address] 30on 07-08-2023 30 The patient is Moderately [...] Maintains adequate nutritional intake Outcome: Progressing Normal [facility] 30 Problem: Cardiovascular - Adult Goal: [...] for the shift include stable bp Normal [facility] BASIC METABOLIC PANELon 06-15 Anion gap [Moles/Vol] 10 mmol/L Normal 7-20 [facility] Comment on above: Performed By: #### L [id number] ####[facility] ([employer])[address] [place] [address] Calcium [Mass/Vol] 9.0 mg/dL Normal 8.6-10.3 [facility] Comment on above: Performed By: #### L [id number] ####[facility] ([employer])[address] [place] [address] Chloride [Moles/Vol] 97 mmol/L Low 98-107 [facility] Comment on above: Performed By: #### L [id number] ####[facility] ([employer])[address] [place] [address] CO2 [Moles/Vol] 33 mmol/L High 21-31 [facility] Comment on above: Performed By: #### L [id number] ####[facility] ([employer])[address] [place] [address] Creatinine [Mass/Vol] 1.30 mg/dL High 0.60-1.20 [facility] Comment on above: Performed By: #### L [id number] ####[facility] ([facility])[address] [place] [address] GLOMERULAR FILTRATION RATE ML/MIN/1.73 SQ M.PREDICTED 46.5 mL/min/1.73m*2 Low >60.0 [facility] Comment on above: Result Comment: [facility]???s estimated glomerular filtration rate (eGFR) will [...] of individuals. Performed By: #### L [id number] ####[facility] ([facility])[address] [place] [address] Glucose [Mass/Vol] 214 mg/dL High 70-100 [facility] Comment on above: Performed By: #### L [id number] ####[facility] ([facility])[address] [place] [address] Potassium [Moles/Vol] 3.9 mmol/L Normal 3.5-5.1 [facility] Comment on above: Performed By: #### L [id number] ####[facility] ([facility])[address] [address] Sodium [Moles/Vol] 136 mmol/L Normal 136-145 [facility] Comment on above: Performed By: #### L [id number] ####[facility] ([facility])[address] [place] [address] Urea nitrogen [Mass/Vol] 26 mg/dL High 7-25 [facility] Comment on above: Performed By: #### L [id number] ####[facility] ([facility])[address] [place] [address] UREA NITROGEN/CREATININE (MASS RATIO) IN SER/PLAS 20.0 Normal [facility] Comment on above: Performed By: #### L [id number] ####[facility] ([facility])[address] [place] [address] CBC WITH AUTO DIFFERENTIALon 07-08-2023 Basophils (Bld) [#/Vol] 0.04 10*3/uL Normal 0.00-0.20 [facility] Comment on above: Performed By: #### L [id number] #### [facility] (BEAKER) [address] [place] [address] Basophils/100 WBC (Bld) 0.3 % Normal 0.0-1.0 [facility] Comment on above: Performed By: #### L [id number] #### [facility] (BEAKER) [address] [place] [address] Eosinophils (Bld) [#/Vol] 0.51 10*3/uL High 0.00-0.50 [facility] Comment on above: Performed By: #### L [id number] #### [facility] (BEAKER) [address] [place] [address] Eosinophils/100 WBC (Bld) 4.1 % Normal 0.0-6.0 [facility] Comment on above: Performed By: #### L [id number] #### [facility] (BEAKER) [address] [address] Erythrocyte distribution width (RBC) [Ratio] 15.0 % Normal 11.5-15.0 [facility] Comment on above: Performed By: #### L [id number] #### [facility] (BEAKER) [address] [address] ERYTHROCYTE MEAN CORPUSCULAR HEMOGLOBIN CONCENTRATION (G/DL) BY AUTOMATED 31.9 g/dL Low 32.0-35.0 [facility] Comment on above: Performed By: #### L [id number] #### [facility] (BEAKER) [address] [address] Hematocrit (Bld) [Volume fraction] 37.9 % Normal 36.0-48.0 [facility] Comment on above: Performed By: #### L [id number] #### [facility] (BEAKER) [address] [address] Hemoglobin (Bld) [Mass/Vol] 12.1 g/dL Normal 12.0-15.0 [facility] Comment on above: Performed By: #### L [id number] #### [facility] (BEAKER) [address] [place] [address] Immature granulocytes (Bld) [#/Vol] 0.04 10*3/uL Normal 0.00-0.20 [facility] Comment on above: Performed By: #### L [id number] #### [facility] ([facility] [address] [place] [address] Immature granulocytes/100 WBC (Bld) 0.3 % Normal 0.0-1.0 [facility] Comment on above: Performed By: #### L [id number] #### [facility] ([facility]) [address] [place] [address] Lymphocytes (Bld) [#/Vol] 4.00 10*3/uL Normal 1.20-4.00 [facility] Comment on above: Performed By: #### L [id number] #### [facility] ([facility]) [address] [place] [address] Lymphocytes/100 WBC (Bld) 32.1 % Normal 20.0-45.0 [facility] Comment on above: Performed By: #### L [id number] #### [facility] ([facility]) [address] [place] [address] MCH (RBC) [Entitic mass] 28.1 pg Normal 27.0-33.0 [facility] Comment on above: Performed By: #### L [id number] #### [facility] ([facility]) [address] [place] [address] MCV (RBC) [Entitic vol] 87.9 fL Normal 82.0-98.0 [facility] Comment on above: Performed By: #### L [id number] #### [facility] ([facility]) [address] [place] [address] Monocytes (Bld) [#/Vol] 0.85 10*3/uL Normal 0.10-1.00 [facility] Comment on above: Performed By: #### L [id number] #### [facility] (BEAKER) [address] [place] [address] Monocytes/100 WBC (Bld) 6.8 % Normal 5.0-12.0 [facility] Comment on above: Performed By: #### L [id number] #### [facility] ([facility]) [address] [place] [address] Neutrophils (Bld) [#/Vol] 7.02 10*3/uL Normal 1.60-7.60 [facility] Comment on above: Performed By: #### L [id number] #### [facility] ([facility]) [address] [place] [address] Neutrophils/100 WBC (Bld) 56.4 % Normal 40.0-72.0 [facility] Comment on above: Performed By: #### L [id number] #### [facility] ([facility]) [address] [place] [address] NRBC (PER 100 WBCS) BY AUTOMATED COUNT 0.0 % Normal 0 [facility] Comment on above: Performed By: #### L [id number] #### [facility] ([facility]) [address] [place] [address] PLATELETS (10*3/UL) IN BLOOD AUTOMATED COUNT 301 10*3/uL Normal 150-400 [facility] Comment on above: Performed By: #### L [id number] #### [facility]) [address] [place] [address] RBC (Bld) [#/Vol] 4.31 10*6/uL Normal 3.80-5.00 [facility] Comment on above: Performed By: #### L [id number] #### [facility] ([facility]) [address] [place] [address] WBC (Bld) [#/Vol] 12.46 10*3/uL High 4.00-10.60 [facility] Comment on above: Performed By: #### L [id number] #### [facility] (BEAKER) [address] [place] [address] 30on 07-07-2023 30 The patient is Moderately Stable - Low risk of patient condition declining or worsening The patient's goals for the shift include comfort The clinical goals for the shift include vss Normal [facility] 30 Problem: Cardiovascular - Adult Goal: [...] comfort lev (more content not included)... Normal [facility] BASIC METABOLIC PANELon 02-2 Anion gap [Moles/Vol] 12 mmol/L Normal 7-20 [facility] Comment on above: Performed By: #### L [id number] #### [facility] (BEAKER) [address] [place] [address] Calcium [Mass/Vol] 9.2 mg/dL Normal 8.6-10.3 [facility] Comment on above: Performed By: #### L [id number] #### [facility]) [address] [place] [address] Chloride [Moles/Vol] 97 mmol/L Low 98-107 [facility] Comment on above: Performed By: #### L [id number] #### [facility] ([facility]) [address] [place] [address] CO2 [Moles/Vol] 31 mmol/L Normal 21-31 [facility] Comment on above: Performed By: #### L [id number] #### [facility] ([facility]) [address] [place] [address] Creatinine [Mass/Vol] 1.06 mg/dL Normal 0.60-1.20 [facility] Comment on above: Performed By: #### L [id number] #### [facility] ([facility]) [address] [place] [address] GLOMERULAR FILTRATION RATE ML/MIN/1.73 SQ M.PREDICTED 59.4 mL/min/1.73m*2 Low >60.0 [facility] Comment on above: Result Comment: [facility]???s estimated glomerular filtration rate (eGFR) will [...] individuals. Performed By: #### L [id number] #### [facility] ([facility]) [address] [place] [address] Glucose [Mass/Vol] 119 mg/dL High 70-100 [facility] Comment on above: Performed By: #### L [id number] #### [facility] ([facility]) [address] [place] [address] Potassium [Moles/Vol] 4.6 mmol/L Normal 3.5-5.1 [facility] Comment on above: Performed By: #### L [id number] #### [facility] [address] [place] [address] Sodium [Moles/Vol] 135 mmol/L Low 136-145 [facility] Comment on above: Performed By: #### L [id number] #### [facility] ([facility]) [address] [place] [address] Urea nitrogen [Mass/Vol] 21 mg/dL Normal 7-25 [facility] Comment on above: Performed By: #### L [id number] #### [facility] ([facility]) [address] [place] [address] UREA NITROGEN/CREATININE (MASS RATIO) IN SER/PLAS 19.8 Normal [facility] Comment on above: Performed By: #### L [id number] #### [facility] ([facility]) [address] [place] [address] CBC WITH AUTO DIFFERENTIALon 07-07-2023 Basophils (Bld) [#/Vol] 0.05 10*3/uL Normal 0.00-0.20 [facility] Comment on above: Performed By: #### L [id number] #### [facility]) [address] [place] [address] Basophils/100 WBC (Bld) 0.3 % Normal 0.0-1.0 [facility] Comment on above: Performed By: #### L [id number] #### [facility] ([facility]) [address] [place] [address] Eosinophils (Bld) [#/Vol] 0.38 10*3/uL Normal 0.00-0.50 [facility] Comment on above: Performed By: #### L [id number] #### [facility] ([facility]) [address] [place] [address] Eosinophils/100 WBC (Bld) 2.5 % Normal 0.0-6.0 [facility] Comment on above: Performed By: #### L [id number] #### [facility] ([facility]) [address] [address] Erythrocyte distribution width (RBC) [Ratio] 15.5 % High 11.5-15.0 [facility] Comment on above: Performed By: #### L [id number] #### [facility] ([facility]) [address] [place] [address] ERYTHROCYTE MEAN CORPUSCULAR HEMOGLOBIN CONCENTRATION (G/DL) BY AUTOMATED 32.0 g/dL Normal 32.0-35.0 [facility] Comment on above: Performed By: #### L [id number] #### [facility] ([facility]) [address] [address] Hematocrit (Bld) [Volume fraction] 38.8 % Normal 36.0-48.0 [facility] Comment on above: Performed By: #### L [id number] #### [facility] ([facility]) [address] [place] [address] Hemoglobin (Bld) [Mass/Vol] 12.4 g/dL Normal 12.0-15.0 [facility] Comment on above: Performed By: #### L [id number] #### [facility] ([facility]) [address] [place] [address] Immature granulocytes (Bld) [#/Vol] 0.05 10*3/uL Normal 0.00-0.20 [facility] Comment on above: Performed By: #### L [id number] #### [facility] ([facility]) [address] [address] Immature granulocytes/100 WBC (Bld) 0.3 % Normal 0.0-1.0 [facility] Comment on above: Performed By: #### L [id number] #### [facility] [address] [place] [address] Lymphocytes (Bld) [#/Vol] 3.99 10*3/uL Normal 1.20-4.00 [facility] Comment on above: Performed By: #### L [id number] #### [facility] (BEAKER) [address] [place] [address] Lymphocytes/100 WBC (Bld) 26.5 % Normal 20.0-45.0 [facility] Comment on above: Performed By: #### L [id number] #### [facility] (BEAKER) [address] [place] [address] MCH (RBC) [Entitic mass] 27.9 pg Normal 27.0-33.0 [facility] Comment on above: Performed By: #### L [id number] #### [facility] (BEAKER) [address] [place] [address] MCV (RBC) [Entitic vol] 87.4 fL Normal 82.0-98.0 [facility] Comment on above: Performed By: #### L [id number] #### [facility] (BEAKER) [address] [place] [address] Monocytes (Bld) [#/Vol] 1.25 10*3/uL High 0.10-1.00 [facility] Comment on above: Performed By: #### L [id number] #### [facility] (BEAKER) [address] [place] [address] Monocytes/100 WBC (Bld) 8.3 % Normal 5.0-12.0 [facility] Comment on above: Performed By: #### L [id number] #### [facility] (BEAKER) [address] [place] [address] Neutrophils (Bld) [#/Vol] 9.31 10*3/uL High 1.60-7.60 [facility] Comment on above: Performed By: #### L [id number] #### [facility] (BEAKER) [address] [place] [address] Neutrophils/100 WBC (Bld) 62.1 % Normal 40.0-72.0 [facility] Comment on above: Performed By: #### L [id number] #### [facility] ([facility]) [address] [place] [address] NRBC (PER 100 WBCS) BY AUTOMATED COUNT 0.0 % Normal 0 [facility] Comment on above: Performed By: #### L [id number] #### [facility] ([facility]) [address] [place] [address] PLATELETS (10*3/UL) IN BLOOD AUTOMATED COUNT 300 10*3/uL Normal 150-400 [facility] Comment on above: Performed By: #### L [id number] #### [facility] ([facility]) [address] [place] [address] RBC (Bld) [#/Vol] 4.44 10*6/uL Normal 3.80-5.00 [facility] Comment on above: Performed By: #### L [id number] #### [facility] ([facility]) [address] [place] [address] WBC (Bld) [#/Vol] 15.03 10*3/uL High 4.00-10.60 [facility] Comment on above: Performed By: #### L [id number] #### [facility] ([facility]) [address] [place] [address] MAGNESIUMon 07-07-2023 Magnesium [Mass/Vol] 2.3 mg/dL Normal 1.9-2.7 [facility] Comment on above: Performed By: #### L [id number] #### [facility] ([facility]) [address] [place] [address] 30on 07-06-2023 30 Daily Case Managemen t [...] Consultation Consultation and Management 07/06/23 1050 Normal [facility] 30 The patient is Moderately Stable [...] and maintained or improved Outcome: Progressing Normal [facility] 30 The patient is Moderately Stable - Low risk of patient condition declining or worsening The patient's goals for the shift include comfort The clinical goals for the shift include VSS Normal [facility] 30 The patient is Moderately Stable - Low risk of patient condition declining or worsening The patient's goals for the shift include comfort The clinical goals for the shift include VSS Normal [facility] APTTon 07-06-2023 ACTIVATED PARTIAL THROMBOPLASTIN TIME IN PPP BY COAGULATION ASSAY 25.3 Seconds Normal 25.0-35.0 [facility] Comment on above: Result Comment: Clin ical significance of the APTT is questionable in the presence of heparin. Performed By: #### L [id number] #### [facility] (BEAKER) [address] [place] [address] B-TYPE NATRIURETIC PEPTIDEon 07-06-2023 Natriuretic peptide B (Bld) [Mass/Vol] 721 pg/mL High 0-100 [facility] Comment on above: Performed By: #### L [id number] #### [facility] (BEAKER) [address] [address] BLOOD CULTUREon 07-06-2023 Bacteria identified Cx Nom (Bld) No growth at 5 days Normal [facility] Comment on above: Performed By: #### L [id number] ####[facility] (BEAKER)[address] [address] Order Comment: From a different site than #1. Performed By: #### L [id number] #### [facility] (BEAKER) [address] [place] [address] CBC WITH AUTO DIFFERENTIALon 07-06-2023 Basophils (Bld) [#/Vol] 0.03 10*3/uL Normal 0.00-0.20 [facility] Comment on above: Performed By: #### L [id number] ####[facility] ([facility] [place] [address] Basophils/100 WBC (Bld) 0.2 % Normal 0.0-1.0 [facility] Comment on above: Performed By: #### L [id number] ####[facility] (BEAKER)[address] [place] [address] Eosinophils (Bld) [#/Vol] 0.11 10*3/uL Normal 0.00-0.50 [facility] Comment on above: Performed By: #### L [id number] ####[facility] (BEAKER)[address] [place] [address] Eosinophils/100 WBC (Bld) 0.8 % Normal 0.0-6.0 [facility] Comment on above: Performed By: #### L [id number] ####[facility] (BEAKER)[address] [place] [address] Erythrocyte distribution width (RBC) [Ratio] 15.1 % High 11.5-15.0 [facility] Comment on above: Performed By: #### L [id number] ####[facility] (BEAKER)[address] [place] [address] ERYTHROCYTE MEAN CORPUSCULAR HEMOGLOBIN CONCENTRATION (G/DL) BY AUTOMATED 32.3 g/dL Normal 32.0-35.0 [facility] Comment on above: Performed By: #### L [id number] ####[facility] (BEAKER)[address] [place] [address] Hematocrit (Bld) [Volume fraction] 39.0 % Normal 36.0-48.0 [facility] Comment on above: Performed By: #### L [id number] ####[facility] (BEAKER)[address] [place] [address] Hemoglobin (Bld) [Mass/Vol] 12.6 g/dL Normal 12.0-15.0 [facility] Comment on above: Performed By: #### L [id number] ####[facility] (BEAKER)[address] [place] [address] Immature granulocytes (Bld) [#/Vol] 0.04 10*3/uL Normal 0.00-0.20 [facility] Comment on above: Performed By: #### L [id number] ####[facility] (BEAKER)[address] [place] [address] Immature granulocytes/100 WBC (Bld) 0.3 % Normal 0.0-1.0 [facility] Comment on above: Performed By: #### L [id number] ####[facility] (BEAKER)[address] [place] [address] Lymphocytes (Bld) [#/Vol] 2.75 10*3/uL Normal 1.20-4.00 [facility] Comment on above: Performed By: #### L [id number] ####[facility] (BEAKER)[address] [place] [address] Lymphocytes/100 WBC (Bld) 19.1 % Low 20.0-45.0 [facility] Comment on above: Performed By: #### L [id number] ####[facility] (BEAKER)[address] [place] [address] MCH (RBC) [Entitic mass] 27.9 pg Normal 27.0-33.0 [facility] Comment on above: Performed By: #### L [id number] ####[facility] ([facility])[address] [place] [address] MCV (RBC) [Entitic vol] 86.5 fL Normal 82.0-98.0 [facility] Comment on above: Performed By: #### L [id number] ####[facility] ([facility])[address] [place] [address] Monocytes (Bld) [#/Vol] 1.31 10*3/uL High 0.10-1.00 [facility] Comment on above: Performed By: #### L [id number] ####[facility] (BEAKER)[address] [place] [address] Monocytes/100 WBC (Bld) 9.1 % Normal 5.0-12.0 [facility] Comment on above: Performed By: #### L [id number] ####[facility] ([facility])[address] [place] [address] Neutrophils (Bld) [#/Vol] 10.18 10*3/uL High 1.60-7.60 [facility] Comment on above: Performed By: #### L [id number] ####[facility] (BEAKER)[address] [place] [address] Neutrophils/100 WBC (Bld) 70.5 % Normal 40.0-72.0 [facility] Comment on above: Performed By: #### L [id number] ####[facility] ([facility])[address] [place] [address] NRBC (PER 100 WBCS) BY AUTOMATED COUNT 0.0 % Normal 0 [facility] Comment on above: Performed By: #### L [id number] ####[facility] (BEAKER)[address] [place] [address] PLATELETS (10*3/UL) IN BLOOD AUTOMATED COUNT 321 10*3/uL Normal 150-400 [facility] Comment on above: Performed By: #### L [id number] ####[facility] ([facility])[address] [place] [address] RBC (Bld) [#/Vol] 4.51 10*6/uL Normal 3.80-5.00 [facility] Comment on above: Performed By: #### L [id number] ####[facility] ([facility])[address] [place] [address] WBC (Bld) [#/Vol] 14.42 10*3/uL High 4.00-10.60 [facility] Comment on above: Performed By: #### L [id number] ####[facility] ([facility])[address] [place] [address] [facility] CREATINE KINASE (U/L) IN SER/PLAS 36.0 U/L Normal 30.0-223.0 [facility] Comment on above: Performed By: #### L [id number] #### [facility] ([facility]) [address] [place] [address] COMPREHENSIVE METABOLIC PANE Pollo 07-06-2023 Albumin [Mass/Vol] 4.6 g/dL Normal 3.5-5.7 [facility] Comment on above: Performed By: #### L [id number] #### [facility] ([facility]) [address] [place] [address] ALP [Catalytic activity/Vol] 47 U/L Normal 34-104 [facility] Comment on above: Performed By: #### L [id number] #### [facility] ([facility]) [address] [place] [address] ALT [Catalytic activity/Vol] 13 U/L Normal 7-52 [facility] Comment on above: Performed By: #### L [id number] #### [facility] ([facility]) [address] [place] [address] Anion gap [Moles/Vol] 14 mmol/L Normal 7-20 [facility] Comment on above: Performed By: #### L [id number] #### [facility] (BEAKER) [address] [place] [address] AST [Catalytic activity/Vol] 17 U/L Normal 13-39 [facility] Comment on above: Performed By: #### L [id number] #### [facility] ([facility]) [address] [place] [address] Bilirubin [Mass/Vol] 0.5 mg/dL Normal 0.3-1.0 [facility] Comment on above: Performed By: #### L [id number] #### [facility] ([facility]) [address] [place] [address] Calcium [Mass/Vol] 8.9 mg/dL Normal 8.6-10.3 [facility] Comment on above: Performed By: #### L [id number] #### [facility] ([facility]) [address] [place] [address] Chloride [Moles/Vol] 98 mmol/L Normal 98-107 [facility] Comment on above: Performed By: #### L [id number] #### [facility] ([facility]) [address] [place] [address] CO2 [Moles/Vol] 28 mmol/L Normal 21-31 [facility] Comment on above: Performed By: #### L [id number] #### [facility] ([facility]) [address] [place] [address] Creatinine [Mass/Vol] 1.23 mg/dL High 0.60-1.20 [facility] Comment on above: Performed By: #### L [id number] #### [facility] ([facility]) [address] [place] [address] GLOMERULAR FILTRATION RATE ML/MIN/1.73 SQ M.PREDICTED 49.7 mL/min/1.73m*2 Low >60.0 [facility] Comment on above: Result Comment: [facility]???s estimated glomerular filtration rate (eGFR) will [...] individuals. Performed By: #### L [id number] #### [facility] ([facility]) [address] [place] [address] Glucose [Mass/Vol] 119 mg/dL High 70-100 [facility] Comment on above: Performed By: #### L [id number] #### [facility] ([facility]) [address] [place] [address] Potassium [Moles/Vol] 4.6 mmol/L Normal 3.5-5.1 [facility] Comment on above: Performed By: #### L [id number] #### [facility] ([facility]) [address] [place] [address] Protein [Mass/Vol] 6.8 g/dL Normal 6.0-8.3 [facility] Comment on above: Performed By: #### L [id number] #### [facility] ([facility]) [address] [place] [address] Sodium [Moles/Vol] 135 mmol/L Low 136-145 [facility] Comment on above: Performed By: #### L [id number] #### [facility] ([facility]) [address] [place] [address] Urea nitrogen [Mass/Vol] 23 mg/dL Normal 7-25 [facility] Comment on above: Performed By: #### L [id number] #### [facility] ([facility]) [address] [place] [address] UREA NITROGEN/CREATININE (MASS RATIO) IN SER/PLAS 18.7 Normal [facility] Comment on above: Performed By: #### L [id number] #### [facility] (ANDRIY) [address] [place] [address] CONSULTon 07-06-2023 CONSULT - Attestation signed by [...] of bradycardia. Patient has been transferred to [facility] for consideration of pacemaker placement. [...] -- 7 (more content not included)... Normal [facility] ED Clinical Summaryon 2023 ED Clinical Summary [place] [id number] ED Clinical Summary Person Information Name: VIVIAN VANN [place] Age: 63 Years : 1960 Sex: Female Language: Latvian PCP: Екатерина Robert MD Marital Status: Phone: [...] 07/05/2023 22:16:25 07/05/2023 22:16:25 07/05/2023 22:16:25 ADDRESS: [address] [place] [id number] PHYS DOC NOTES: MEDICAL INFORMATION: Prescriptions Given: [...] 3:Tobacco abuse; 4:CHF (congestive heart failure) Normal [facility] ED Patient Education Noteon 07-06-2023 ED Patient Education Note Normal [facility] ED Patient Summaryon 024 ED Patient Summary [address] [address] Patient Discharge Instructions Person Information Name: VIVIAN VANN Age: 63 Years Arrival Date: 07/05/2023 15:01:40 Discharge Diagnosis: 1:Atrial fibrillation with slow ventricular response; 2:Elevated troponin; 3:Tobacco abuse; 4:CHF (congestive heart failure) Primary Care Physician: Екатерина Robert MD Provider Information Primary Provider: Arsenio Martin DO Advanced Director Of Knowledge Management:None The exam and treatment you received in the Emergency Department were for an urgent problem and are not intended as complete care. It is important that you follow up with a doctor, nurse practitioner, or physician?s child care center assistant director for ongoing care. If your symptoms become [...] opioids can be used to help relieve pwzcqsdy-zj-htoley pain and are often prescribed following a [...] struggling with addiction, tell your health healthcare business analyst and ask for guidance or call [employer]?S National Helpline at 4-221-074-VDXO. v Source: [place] Department of Health and Human Services/Center for Disease Control & Preve (more content not included)... Normal [facility] ETHANOLon 07-06-2023 ETHANOL (MG/DL) IN SER/PLAS <10 Normal [facility] Comment on above: Performed By: #### L [id number] ####[facility] (BEAKER)[address] [place] [address] ETHANOL CALCULATED (%) [facility] Comment on above: Performed By: #### L [id number] ####[facility] ([facility])[address] [place] [address] HEMOGLOBIN A1Con 07-06-2023 Glucose [Mass/Vol] 148 mg/dL Normal [facility] Comment on above: Performed By: #### L [id number] #### [facility] ([facility]) [address] [place] [address] HbA1c (Bld) [Mass fraction] 6.8 % High 4.0-6.0 [facility] Comment on above: Performed By: #### L [id number] #### [facility] ([facility]) [address] [place] [address] LACTIC ACID WITH 4 HOUR REFL EXon 07-06-2023 LACTATE (MMOL/L) IN SER/PLAS 1.8 mmol/L Normal 0.5-2.2 [facility] Comment on above: Performed By: #### L [id number] ####[facility] ([facility])[address] [place] [address] LIPID PANELon 07-06-2023 CHOL/HDL 3.0 mg/dL Normal [facility] Comment on above: Performed By: #### L [id number] #### [facility] ([facility]) [address] [place] [address] Cholesterol [Mass/Vol] 143 mg/dL Normal 120-200 Un [facility] Comment on above: Performed By: #### L [id number] #### [facility] ([facility]) [address] [place] [address] Magnesium [Mass/Vol] 159 mg/dL High 40-149 [facility] Comment on above: Result Comment: TRIG LYCERIDE REFERENCE RANGE: 20 YEARS AND OLDER CARDIOVASCULAR RISK LESS THAN 150 mg/dL LOW RISK 150 TO 199 mg/dL BORDERLINE RISK 200 mg/dL AND GREATER HIGH RISK Performed By: #### L [id number] #### [facility] ([facility]) [address] [place] [address] Magnesium [Mass/Vol] 63 mg/dL Normal 0-160 [facility] Comment on above: Performed By: #### L [id number] #### [facility] ([facility]) [address] [place] [address] Magnesium [Mass/Vol] 48 mg/dL Normal 23-92 [facility] Comment on above: Performed By: #### L [id number] #### [facility] ([facility]) [address] [place] [address] NON HDL CHOL. (LDL+VLDL) 95 Normal [facility] Comment on above: Performed By: #### L [id number] #### [facility] ([facility]) [address] [facility] [place] [address] TOTAL VLDL-C 32 mg/dL Normal 0-40 [facility] Comment on above: Performed By: #### L [id number] #### [facility] ([facility]) [address] [facility] [place] [address] MAGNESIUMon 07-06-2023 Magnesium [Mass/Vol] 2.2 mg/dL Normal 1.9-2.7 [facility] Comment on above: Performed By: #### L [id number] #### [facility] ([facility]) [address] [place] [address] PHOSPHORUSon 07-06-2023 Magnesium [Mass/Vol] 5.2 mg/dL High 2.5-5.0 [facility] Comment on above: Performed By: #### L [id number] #### [facility] ([facility]) [address] [facility] [place] [address] PROTIME-INRon 07-06-2023 INR IN PPP BY COAGULATION ASSAY 1.00 Normal 0.90-1.10 [facility] Comment on above: Result Comment: ACCC [...] CHEST 1995;108:[id number]-246S. Performed By: #### L [id number] ####[facility] ([facility])[address] [place] [address] PROTHROMBIN TIME (PT) IN PPP BY COAGULATION ASSAY 13.2 Seconds Normal 12.3-14.8 [facility] Comment on above: Performed By: #### L [id number] ####[facility] ([facility])[address] [place] [address] TOXICOLOGY PANEL URINEon AMPHETAMINE+METHAMPHET AMINE SCREEN (PRESENCE) IN URINE Negative Normal Negative [facility] Comment on above: Performed By: #### L [id number] #### [facility] ([facility]) [address] [place] [address] BARBITURATES PRESENCE IN URINE BY SCREEN METHOD Negative Normal Negative [facility] Comment on above: Performed By: #### L [id number] #### [facility] ([facility]) [address] [place] [address] Benzodiazepines Ql (U) Positive Abnormal Negative [facility] Comment on above: Performed By: #### L [id number] #### [facility] ([facility]) [address] [place] [address] CANNABINOID (PRESENCE) IN URINE BY SCREEN METHOD Positive Abnormal Negative [facility] Comment on above: Performed By: #### L [id number] #### [facility] ([facility]) [address] [place] [address] Cocaine Ql (U) Negative Normal Negative [facility] Comment on above: Performed By: #### L [id number] #### [facility] ([facility]) [address] [place] [address] METHADONE (PRESENCE) IN URINE BY SCREEN METHOD Negative Normal Negative [facility] Comment on above: Performed By: #### L [id number] #### [facility] ([facility]) [address] [place] [address] OPIATES (PRESENCE) IN URINE BY SCREEN METHOD Negative Normal Negative [facility] Comment on above: Performed By: #### L [id number] #### [facility] ([facility]) [address] [place] [address] PHENCYCLIDINE PRESENCE IN URINE BY SCREEN METHOD Negative Normal Negative [facility] Comment on above: Performed By: #### L [id number] #### [facility] ([facility]) [address] [place] [address] Propoxyphene Screen Ql (U) Negative Normal Negative [facility] Comment on above: Performed By: #### L [id number] #### [facility] ([facility]) [address] [place] [address] TRICYCLIC ANTIDEPRESSANTS (PRESENCE) IN URINE Positive Abnormal Negative [facility] Comment on above: Performed By: #### L [id number] #### [facility] ([facility]) [address] [place] [address] TROPONIN Ion 07-06-2023 Troponin I.cardiac [Mass/Vol] 0.12 ng/mL Critically high 0.00-0.04 [facility] Comment on above: Result Comment: M-RI EVIOUS CRITICAL RESULT Previous result verified on 07/06/2023 1236 on specimen/case [id number] called with component Troponin I for procedure Troponin I with value 0.11 ng/mL. Performed By: #### L [id number] #### [facility] ([facility]) [address] [place] [address] Troponin I.cardiac [Mass/Vol] 0.11 ng/mL Critically high 0.00-0.04 [facility] Comment on above: Result Comment: M-RI EVIOUS CRITICAL RESULT Previous result verified on 07/06/2023 0444 on specimen/case [id number] called with component Troponin I for procedure Troponin I with value 0.12 ng/mL. Performed By: #### L [id number] #### [facility] ([facility]) [address] [place] [address] Troponin I.cardiac [Mass/Vol] 0.12 ng/mL Critically high 0.00-0.04 [facility] Comment on above: Result Comment: M-CR ITICAL RESULT(S) REVIEWED, CALLED TO AND READ BACK BY PRIYANKA LEOS RN AT 0442 M-TROPONIN INITIAL CRITICAL HIGH; RESPUN AND RETESTED Performed By: #### L [id number] #### [facility] ([facility]) [address] [place] [address] TSH3 REFLEX TO FT4on 024 THYROTROPIN (MIU/L) IN SER/PLAS BY DETECTION LIMIT <= 0.05 MIU/L 4.25 mIU/L Normal 0.34-5.60 [facility] Comment on above: Performed By: #### L [id number] #### [facility] ([facility]) [address] [place] [address] Transfer Documentson 024 Transfer Documents [id number] 1.00TIFF Normal [facility] URINALYSIS WITH REFLEX CULTU REon 07-06-2023 BILIRUBIN, TOTAL PRESENCE IN URINE Negative Normal Negative [facility] Comment on above: Order Comment: Micro scopics not performed on urines with negative chemical reactions unless requested on original order. Performed By: #### L [id number] #### [facility] ([facility]) [address] [place] [address] Clarity (U) Clear Normal Clear [facility] Comment on above: Order Comment: Micro scopics not performed on urines with negative chemical reactions unless requested on original order. Performed By: #### L [id number] #### [facility] (BEAKER) [address] [place] [address] Color (U) Yellow Normal Yellow [facility] Comment on above: Order Comment: Micro scopics not performed on urines with negative chemical reactions unless requested on original order. Performed By: #### L [id number] #### [facility] (BEAKER) [address] [place] [address] Glucose (U) [Mass/Vol] mg/dL Abnormal Negative [facility] Comment on above: Order Comment: Micro scopics not performed on urines with negative chemical reactions unless requested on original order. Performed By: #### L [id number] #### [facility] ([facility]) [address] [place] [address] HEMOGLOBIN PRESENCE IN URINE Negative Normal Negative [facility] Comment on above: Order Comment: Micro scopics not performed on urines with negative chemical reactions unless requested on original order. Performed By: #### L [id number] #### [facility] ([facility] [address] [place] [address] Ketones Ql (U) Negative Normal Negative [facility] Comment on above: Order Comment: Micro scopics not performed on urines with negative chemical reactions unless requested on original order. Performed By: #### L [id number] #### [facility] ([facility]) [address] [place] [address] LEUKOCYTE ESTERASE PRESENCE IN URINE BY TEST STRIP Negative Normal Negative [facility] Comment on above: Order Comment: Micro scopics not performed on urines with negative chemical reactions unless requested on original order. Performed By: #### L [id number] #### [facility] (BEAKER) [address] [place] [address] NITRITE PRESENCE IN URINE Negative Normal Negative [facility] Comment on above: Order Comment: Micro scopics not performed on urines with negative chemical reactions unless requested on original order. Performed By: #### L [id number] #### [facility] (BEAKER) [address] [place] [address] pH (U) 6.0 [pH] Normal 5.0-8.0 [facility] Comment on above: Order Comment: Micro scopics not performed on urines with negative chemical reactions unless requested on original order. Performed By: #### L [id number] #### [facility] ([facility]) [address] [place] [address] Protein (U) [Mass/Vol] Negative Normal Negative [facility] Comment on above: Order Comment: Micro scopics not performed on urines with negative chemical reactions unless requested on original order. Performed By: #### L [id number] #### [facility] ([facility]) [address] [place] [address] Specific gravity (U) [Rel density] 1.013 Low 1.015-1.020 [facility] Comment on above: Order Comment: Micro scopics not performed on urines with negative chemical reactions unless requested on original order. Performed By: #### L [id number] #### [facility] ([facility]) [address] [place] [address] BILIRUBIN, TOTAL PRESENCE IN URINE Negative Normal Negative [facility] Comment on above: Order Comment: Micro scopics not performed on urines with negative chemical reactions unless requested on original order. Performed By: #### L [id number] #### [facility] ([facility]) [address] [place] [address] Clarity (U) Clear Normal Clear [facility] Comment on above: Order Comment: Micro scopics not performed on urines with negative chemical reactions unless requested on original order. Performed By: #### L [id number] #### [facility] ([facility]) [address] [place] [address] Color (U) Yellow Normal Yellow [facility] Comment on above: Order Comment: Micro scopics not performed on urines with negative chemical reactions unless requested on original order. Performed By: #### L [id number] #### [facility] ([facility]) [address] [place] [address] Glucose (U) [Mass/Vol] mg/dL Abnormal Negative [facility]: Order Comment: Micro scopics not performed on urines with negative chemical reactions unless requested on original order. Performed By: #### L [id number] #### [facility] ([facility]) [address] [place] [address] HEMOGLOBIN PRESENCE IN URINE Negative Normal Negative [facility] Comment on above: Order Comment: Micro scopics not performed on urines with negative chemical reactions unless requested on original order. Performed By: #### L [id number] #### [facility] ([facility]) [address] [place] [address] Ketones Ql (U) Negative Normal Negative [facility] Comment on above: Order Comment: Micro scopics not performed on urines with negative chemical reactions unless requested on original order. Performed By: #### L [id number] #### [facility] ([facility]) [address] [place] [address] LEUKOCYTE ESTERASE PRESENCE IN URINE BY TEST STRIP Negative Normal Negative [facility] Comment on above: Order Comment: Micro scopics not performed on urines with negative chemical reactions unless requested on original order. Performed By: #### L [id number] #### [facility] ([facility]) [address] [place] [address] NITRITE PRESENCE IN URINE Negative Normal Negative [facility] Comment on above: Order Comment: Micro scopics not performed on urines with negative chemical reactions unless requested on original order. Performed By: #### L [id number] #### [facility] ([facility]) [address] [place] [address] pH (U) 6.0 [pH] Normal 5.0-8.0 [facility] Comment on above: Order Comment: Micro scopics not performed on urines with negative chemical reactions unless requested on original order. Performed By: #### L [id number] #### [facility] ([facility]) [address] [place] [address] Protein (U) [Mass/Vol] Negative Normal Negative [facility] Comment on above: Order Comment: Micro scopics not performed on urines with negative chemical reactions unless requested on original order. Performed By: #### L [id number] #### [facility] ([facility]) [address] [place] [address] Specific gravity (U) [Rel density] 1.017 Normal 1.015-1.020 [facility] Comment on above: Order Comment: Micro scopics not performed on urines with negative chemical reactions unless requested on original order. Performed By: #### L [id number] #### [facility] ([facility]) [address] [place] [address] BMPon 07-05-2023 Anion gap [Moles/Vol] 15 mmol/L Normal 6-16 [facility] Comment on above: Performed By: #### 1 8654304, 7650657, 10842599, 77270918, 7322684, 00799042, 0569450, 9176624, 0754025, 7924036 ####[facility] [address] [place] [address] BUN/Creat Ratio 15 No Units Normal 10-20 [facility] Comment on above: Performed By: #### 1 2843271, 2005297, 88286291, 99290522, 9322662, 26377628, 4996206, 2514196, 8773544, 7259414 ####[facility] [address] [place] [address] Calcium [Mass/Vol] 10.1 mg/dL Normal 8.9-11.1 [facility] Comment on above: Performed By: #### 1 7580591, 7907126, 11397098, 15437422, 1830269, 98659368, 5120000, 3323712, 5812310, 7928660 ####[facility] [address] [place] [address] Chloride [Moles/Vol] 96 mmol/L Low 101-111 [facility] Comment on above: Performed By: #### 1 0372062, 8415828, 03015069, 68052255, 0612576, 33607813, 6458322, 3549876, 1279326, 3832794 ####[facility] [address] [place] [address] CO2 [Moles/Vol] 32 mmol/L High 21-31 [facility] Comment on above: Performed By: #### 1 2374174, 8187821, 55250395, 36720663, 7529381, 81907777, 1964009, 5422910, 6365289, 2649493 ####[facility] [address] [place] [address] Creatinine [Mass/Vol] 1.5 mg/dL High 0.5-1.3 [facility] Comment on above: Performed By: #### 1 6030999, 9791678, 51111256, 12274752, 2292425, 35106499, 4157346, 0652472, 0500494, 5775365 ####[address] [address] Glucose [Mass/Vol] 147 mg/dL Normal 55-199 [facility] Comment on above: Performed By: #### 1 5285970, 9615349, 13957336, 92142450, 5839655, 00293717, 8063461, 4485078, 6382053, 8562064 ####[place] [place] [address] Potassium [Moles/Vol] 5.1 mmol/L Normal 3.5-5.3 [facility] Comment on above: Performed By: #### 1 2719119, 2241400, 47017460, 15136198, 6058049, 43046662, 8154648, 4084246, 5789069, 5303833 ####[facility] [address] [place] [address] Sodium [Moles/Vol] 138 mmol/L Normal 135-145 [facility] Comment on above: Performed By: #### 1 8133356, 5125127, 89268062, 13961740, 0079340, 63267499, 7199200, 8701431, 7305191, 3974437 ####[address] [place] [address] Urea nitrogen [Mass/Vol] 22 mg/dL High 5-21 [facility] Comment on above: Performed By: #### 1 0721491, 0961753, 86779657, 90059987, 3298363, 59756316, 7839406, 2380158, 1722017, 2972410 ####[facility] [address] [place] [address] BNPon 07-05-2023 Natriuretic peptide B (Bld) [Mass/Vol] 508 pg/mL High 5-80 [facility] Comment on above: Performed By: #### 1 6499977, 5591572, 53623034, 33180678, 7156597, 81177296, 5806266, 3775452, 6691658, 1367965 ####[facility] [address] [place] [address] CBC w/ Auto Diffon 4 Basophil Absolute 0.1 E9/L Normal 0.0-0.2 [facility] Comment on above: Performed By: #### 1 9684990, 9881654, 19203774, 06521453, 8032517, 10097887, 4748518, 5592111, 6160103, 8954683 ####[facility] [address] [place] [address] Basophils/100 WBC (Bld) 0.7 % Normal 0.0-2.0 [facility] Comment on above: Performed By: #### 1 6231371, 5710592, 58705131, 35658547, 8506331, 48723625, 9216788, 7518104, 4246487, 6719169 ####[facility] [address] [place] [address] Eos Absolute 0.4 E9/L Normal 0.0-0.5 [facility] Comment on above: Performed By: #### 1 3831167, 7822533, 46687303, 17349073, 4062319, 47106187, 7587981, 4409402, 4064546, 7410860 ####[address] [place] [address] Eosinophils/100 WBC (Bld) 3.7 % Normal 0.0-8.0 [facility] Comment on above: Performed By: #### 1 7069712, 5187887, 90741994, 10945178, 0369536, 42496074, 2493019, 2181519, 2475340, 0803890 ####[address] [place] [address] Erythrocyte distribution width (RBC) [Ratio] 16.8 % High 10.9-14.2 [facility] Comment on above: Performed By: #### 1 0503053, 5592293, 93079804, 62514284, 1171282, 02754255, 1205701, 0292500, 9611418, 7128713 ####[address] [place] [address] Hematocrit (Bld) [Volume fraction] 46.0 % Normal 34.0-46.0 [facility] Comment on above: Performed By: #### 1 5119285, 3853121, 32102916, 58635888, 0806038, 99394721, 4183971, 0749311, 9241562, 2411631 ####[address] [place] [address] Hemoglobin (Bld) [Mass/Vol] 15.1 g/dL Normal 12.0-16.0 [facility] Comment on above: Performed By: #### 1 2360109, 0721990, 54789672, 02802486, 6044401, 08478390, 1782021, 6172291, 9125409, 2746495 ####[address] [place] [address] Lymph Absolute 3.6 E9/L Normal 1.0-4.0 [facility] Comment on above: Performed By: #### 1 2115269, 8437666, 59945066, 88643990, 5202502, 15935141, 5107194, 8449900, 6283323, 5962812 ####[facility] [address] [place] [address] Lymphocytes/100 WBC (Bld) 30.9 % Normal 14.0-50.0 [facility] Comment on above: Performed By: #### 1 0229732, 5010403, 90586288, 59681095, 3695466, 06242965, 2143803, 0802442, 0444730, 9799098 ####[facility] [address] [place] [address] MCH (RBC) [Entitic mass] 27.6 pg Normal 27.0-34.0 [facility] Comment on above: Performed By: #### 1 1365372, 9086072, 75518375, 49955598, 9003885, 37179530, 6718742, 4765059, 8915913, 8472894 ####[place] [address] MCHC (RBC) [Mass/Vol] 32.8 g/dL Normal 31.4-36.0 [facility] Comment on above: Performed By: #### 1 7787758, 1935279, 59292539, 52596507, 7372801, 72107465, 9251093, 5968232, 5253519, 6857353 ####[address] [place] [address] MCV (RBC) [Entitic vol] 84.3 fL Normal 80.0-100.0 [facility] Comment on above: Performed By: #### 1 5196570, 8131989, 59211140, 90172798, 9260727, 66720809, 8147012, 6856882, 0977509, 7486611 ####[address] [place] [address] [place] Absolute 0.9 E9/L Normal 0.2-1.0 [facility] Comment on above: Performed By: #### 1 0347110, 4463421, 17029683, 57940570, 5676075, 39359384, 9279501, 5319663, 0456354, 5119276 ####[address] [place] [address] Monocytes/100 WBC (Bld) 8.1 % Normal 4.0-14.0 [facility] Comment on above: Performed By: #### 1 3459480, 0256437, 72966093, 94420856, 7514291, 20162493, 3448824, 2812207, 0811239, 2581356 ####[address] [address] Neutro Absolute 6.6 E9/L Normal 2.0-7.5 [facility] Comment on above: Performed By: #### 1 4576047, 2407264, 85242068, 54199413, 0794771, 63752460, 0966117, 0631716, 7516147, 0676286 ####[address] [address] Neutro Auto 56.6 % Normal 36.0-75.0 [facility] Comment on above: Performed By: #### 1 2875628, 5592326, 25832221, 16001637, 8062589, 17567053, 1121286, 4450472, 7830183, 8171559 ####[address] [address] Platelet 431.0 E9/L Normal 150.0-500.0 [facility] Comment on above: Performed By: #### 1 1532389, 4075430, 63829568, 15776202, 9647118, 59060584, 2182049, 8644375, 6803136, 8923363 ####[address] [place] [address] Platelet mean volume (Bld) [Entitic vol] 8.5 fL Normal 6.4-10.8 [facility] Comment on above: Performed By: #### 1 0782051, 8457141, 79554950, 23774837, 1340588, 09334273, 2522314, 1297167, 2636383, 2823428 ####[facility] [address] [place] [address] RBC 5.5 E12/L Normal 4.3-5.9 [facility] Comment on above: Performed By: #### 1 2825596, 2582574, 18808756, 70709049, 9106238, 25296283, 8979205, 9879120, 8001088, 7120811 ####[facility] [address] [place] [address] WBC 11.6 E9/L High 4.0-11.0 [facility] Comment on above: Performed By: #### 1 4034795, 8129772, 70757089, 60894556, 0932908, 63500406, 0500415, 2721904, 1871998, 5112447 ####[facility] [address] [place] [address] CHEMISTRYOrdered By: SYSTEM SYSTEM on 07-05-2023 Troponin 51.10 pg/mL Invalid Interpretation Code 10.10 - 27.10 pg/mL [facility] Comment on above: Result Comment: Crit ical Result I_TnIHS:51.1 Called to and read back by: DR. JUAN AMS at: 07/05/2023 21:51:38 by:[id number] Critical Result Verified by Previous Result Interpretive Data: T he 95% CI (Confidence Interval) PPV (Positive Predictive Value) for myocardial infarction in females is 38 pg/mL, in males 51 pg/mL. The results should be used in conjunction with clinical conditions of myocardial infarction. (Access High Sensitivity Troponin I Instructions For Use, [place], December 2017) Troponin 51.70 pg/mL Invalid Interpretation Code 10.10 - 27.10 pg/mL [facility] Chem S Comment on above: Interpretive Data: T he 95% CI (Confidence Interval) PPV (Positive Predictive Value) for myocardial infarction in females is 38 pg/mL, in males 51 pg/mL. The results should be used in conjunction with clinical conditions of myocardial infarction. (Access High Sensitivity Troponin I Instructions For Use, [place], December 2017) Result Comment: Crit ical Result [...] back by: JOHNNA PERKINS at: 07/05/2023 16:37:35 by:[id number] Interpretive Data: T he 95% CI (Confidence Interval) PPV (Positive Predictive Value) for myocardial infarction in females is 38 pg/mL, in males 51 pg/mL. The results should be used in conjunction with clinical conditions of myocardial infarction. (Access High Sensitivity Troponin I Instructions For Use, [place], December 2017) Urea nitrogen [Mass/Vol] 22 mg/dL High 5 - 21 mg/dL [facility] Urea nitrogen/Creatinine [Mass ratio] 15 mg/mg Normal 10 - 20 [facility] CHEMISTRYOrdered By: Elias Martell on 07-05-2023 Natriuretic peptide B (Bld) [Mass/Vol] 508 pg/mL High 5 - 80 pg/mL [facility] COAGULATIONOrdered By: Richar Kumar on 07-05-2023 aPTT Coag (PPP) [Time] 27.2 s Normal 25.1 - 36.5 second(s) [facility] Auto Coag Comment on above: Interpretive Data: [...] the same coagulation reagent and instrumentation as [facility]. Currently there are no coagulation studies available worldwide for children to 14 days, and no normal ranges. Heparin therapeutic range (represented by Anti-Factor Xa activity of 0.2 - 0.4 U/mL) corresponds to PTT of 56.6 - 109.0 sec. INR Coag (PPP) [Relative time] 1.01 {INR} Invalid Interpretation Code [facility] Auto Coag Comment on above: Interpretive Data: I NR results are specifically intended to assess patients stabilized on long-term Anticoagulation therapy suggested INR s Less Intensive Anticoagulation 2.0 3.0 Conventional Range 3.0 4.5 PT Coag (PPP) [Time] 11.2 s Normal 9.4 - 1 2.5 second(s) [facility] Auto Coag Comment on above: Interpretive Data: [...] the same coagulation reagent and instrumentation as [facility]. Currently there are no coagulation studies available worldwide for children to 14 days, and no normal ranges. Consent for Treatmenton 06-15 Consent for Treatment [id number]#1 .00TIFF Normal [facility] Digoxinon 07-05-2023 Digoxin Lvl <0.2 Low 0.5-1.9 [facility] Comment on above: Performed By: #### 1 1914547, 7999893, 23902952, 98501886, 0515398, 93722423, 1273569, 3997028, 9756908, 4745965 ####[facility] [address] [place] [address] ED Note-Physicianon 07-05-19 24 ED Note-Physician Basic [...] patient states she was just released from [facility] 36 hours ago. She states she was [...] acute int (more content not included)... Normal [facility] Comment on above: Result Comment: Elec tronically [...] Normal 80.0 - 100.0 fL Rem[facility] Heme [place] Absolute 0.9 E9/L Normal 0.2 - 1.0 [...] 07-05-2023 Albumin [Mass/Vol] 4.3 g/dL Normal 3.3-5.0 [facility] Comment on above: Performed By: #### 1 7986074, 7218574, 89401444, 08716033, 0028287, 16272428, 7605430, 7023130, 5561861, 7042754 ####[facility] [address] [place] [address] Albumin/Globulin [Mass ratio] 1.4 {ratio} Normal 1.1-2.2 [facility] Comment on above: Performed By: #### 1 4058857, 7207673, 16586348, 03362417, 7019266, 65837912, 0754938, 6547366, 9497203, 0342363 ####[facility] [address] [place] [address] Alk Phos 77 Int._Unit/L Normal 21-98 [facility] Comment on above: Performed By: #### 1 6500849, 8089715, 12484928, 50494580, 8485024, 44648277, 4681543, 9872451, 3036506, 5897508 ####[facility] [address] [place] [address] ALT 20 Int._Unit/L Normal 6-46 [facility] Comment on above: Performed By: #### 1 3150631, 7755131, 80283076, 28747106, 6141379, 18235945, 3499613, 4204844, 3118128, 6623735 ####[address] [place] [address] AST 23 Int._Unit/L Normal 5-43 [facility] Comment on above: Performed By: #### 1 7196940, 0519876, 97937246, 25591431, 9451939, 36656627, 1607694, 3416861, 8647401, 6208896 ####[facility] [address] [place] [address] Bili Direct 0.1 mg/dL Normal 0.0-0.4 [facility] Comment on above: Performed By: #### 1 5876973, 8298909, 96172433, 36696516, 8314749, 43788579, 3639431, 4910966, 2203878, 0334734 ####[facility] [address] [place] [address] Bili Indirect 0.5 mg/dL Normal 0.1-0.9 [facility] Comment on above: Performed By: #### 1 7027364, 7367061, 74668387, 72523043, 6917709, 14583338, 2391292, 8964473, 7218248, 8056103 ####[facility] [address] [place] [address] Bili Total 0.6 mg/dL Normal 0.0-1.1 [facility] Comment on above: Performed By: #### 1 5611247, 9232025, 11010388, 10291988, 6441402, 44158095, 2803201, 2527806, 9921134, 4609317 ####[facility] [address] [place] [address] Globulin (S) [Mass/Vol] 3.0 g/dL Normal 1.4-4.0 [facility] Comment on above: Performed By: #### 1 2758565, 3953615, 07170428, 21363222, 7961113, 92238665, 4679737, 4410382, 3035815, 9588796 ####[address] [place] [address] Protein [Mass/Vol] 7.3 g/dL Normal 6.0-7.8 [facility] Comment on above: Performed By: #### 1 5817588, 0274046, 76539001, 48342726, 0014253, 88493104, 1439312, 8216530, 3667158, 6224887 ####[address] [address] Lipase Levelon 07-05-2023 Lipase Lvl 22 unit/L Normal 13-58 [facility] Comment on above: Performed By: #### 1 4956069, 4585914, 83587145, 11261134, 6330541, 02000547, 5691433, 4629470, 0198681, 1436972 ####[address] [place] [address] Magnesiumon 07-05-2023 Magnesium [Mass/Vol] 2.3 mg/dL Normal 1.3-2.4 [facility] Comment on above: Performed By: #### 1 6072267, 6595785, 99806954, 52862755, 4572843, 87550243, 4994609, 3761658, 7954309, 2762043 ####[facility] [address] [place] [address] Monitor Recordon 07-05-2023 Monitor Record [id number]# 1.00TIFF Normal [facility] Monitor Record [id number]# 1.00TIFF Normal [facility] Monitor Record [id number]# 1.00TIFF Normal [facility] PT & PTTon 07-05-2023 aPTT Coag (PPP) [Time] 27.2 second(s) Normal 25.1-36.5 [facility] Comment on above: Result Comment: Para meter [...] the same coagulation reagent and instrumentation as [facility]. Currently there are no coagulation studies available worldwide for children to 14 days, and no normal ranges. Heparin therapeutic range (represented by Anti-Factor Xa activity of 0.2 - 0.4 U/mL) corresponds to PTT of 56.6 - 109.0 sec. Performed By: #### 1 6619289, 7585320, 41206715, 50895578, 0357516, 60864326, 6791569, 0611429, 5598592, 0603603 ####[facility] [address] [place] [address] INR Coag (PPP) [Relative time] 1.01 {INR} Invalid Interpretation Code [facility] Comment on above: Result Comment: INR results are specifically intended to assess patients stabilized on long-term Anticoagulation therapy suggested INR?s ?Less Intensive Anticoagulation? 2.0 ? 3.0 Conventional Range 3.0 ? 4.5 Performed By: #### 1 3835512, 0036961, 74592380, 97263753, 1251080, 60078905, 3682089, 2668744, 5785827, 3207107 ####[facility] [address] [place] [address] PT Coag (PPP) [Time] 11.2 second(s) Normal 9.4-12.5 [facility] Comment on above: Result Comment: 15 d [...] the same coagulation reagent and instrumentation as [facility]. Currently there are no coagulation studies available worldwide for children to 14 days, and no normal ranges. Performed By: #### 1 5049102, 7060198, 61415979, 03203666, 5718250, 63544022, 0404072, 1077862, 5838457, 0775764 ####[facility] [address] [place] [address] Pre-Arrival Noteon Pre-Arrival Note Pre-Arrival Summary Name: , [place] [facility] Current Date: 07/05/2023 15:02:00 EST Gender: Female Date of : Age: 63 Pre-Arrival Type: EMS ETA: 07/05/2023 15:21:00 EST Primary Care Physician: Presenting Problem: HR 40s, CP, SOB, dizziness, abd. pain, nausea Pre-Arrival User: Oxana Pace RN Referring Source: Location: CT Completion Date/Time: 07/05/2023 14:51:00 [facility] Emergency Department Pre-Hospital Report Form Vital Signs: Pre-Hospital Report: Treatment in Route: Response to Treatment: Misc. Issues: Normal [facility] Troponin 0 Hr.on 07-05-2023 Troponin 49.20 pg/mL Abnormal 10.10-27.10 [facility] Comment on above: Result Comment: Steven gonzalez Result Verified by Repeat Analysis Critical Result I_TnIHS:49.2 Called to and read back by: JOHNNA PERKINS at: 07/05/2023 16:37:35 by:[id number] The 95% CI (Confidence Interval) PPV (Positive Predictive Value) for myocardial infarction in females is 38 pg/mL, in males 51 pg/mL. The results should be used in conjunction with clinical conditions of myocardial infarction. (Access High Sensitivity Troponin I Instructions For Use, [place], December 2017) Performed By: #### 1 1829697, 7830993, 24189058, 48108508, 2778132, 92675280, 8729640, 0039679, 8909145, 1572698 ####[facility] [address] [place] [address] Troponin 3 Hr.on 07-05-2023 Troponin 51.70 pg/mL Abnormal 10.10-27.10 [facility] Comment on above: Result Comment: The 95% CI (Confidence Interval) PPV (Positive Predictive Value) for myocardial infarction in females is 38 pg/mL, in males 51 pg/mL. The results should be used in conjunction with clinical conditions of myocardial infarction. (Access High Sensitivity Troponin I Instructions For Use, [place], December 2017) Critical Result Verified by Previous Result Results Called To Johnna Perkins (ER) By And Read Back For Confirmation On 07/05/2023 19:18:03 EST. Performed By: #### 1 6572778 ####[facility] [address] [place] [address] Troponin 6 Hr.on 07-05-2023 Troponin 51.10 pg/mL Abnormal 10.10-27.10 [facility] Comment on above: Result Comment: Cri ica Result I_TnIHS:51.1 Called to and read back by: DR. JUAN MAS at: 07/05/2023 21:51:38 by:[id number] Critical Result Verified by Previous Result The 95% CI (Confidence Interval) PPV (Positive Predictive Value) for myocardial infarction in females is 38 pg/mL, in males 51 pg/mL. The results should be used in conjunction with clinical conditions of myocardial infarction. (Access High Sensitivity Troponin I Instructions For Use, [place], December 2017) Performed By: #### 1 1183215 ####[facility] [address] [place] [address] XR Chest Single Viewon 07-05 XR Chest [...] mGy = na DAP = na Normal [facility] eGFRon 07-05-2023 eGFR 39 mL/min/1.73 m2 Low >=59 [facility] Comment on above: Order Comment: Order added by Discern Expert. Performed By: #### 1 5636982, 3920074, 10380602, 82713390, 4482453, 76919913, 2494877, 4908266, 8734083, 5619863 ####[facility] [address] [place] [address] 36on 02-20-2024 36 Unable to reach pt . Phone not in service [facility] 36 Pts phone number not in service. Spoke to pts friend Arvind and requested he have pt call us, he agrees. 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 [Other] [facility] 30on 07-02-2023 30 The patient [...] and behaviors that affect risk of falls [place] fall precautions as indicated by assessment Educate [...] and prevent overall improvement and discharge Normal [facility] 30 The patient is Moderately Stable [...] and behaviors that affect risk of falls [place] fall precautions as indicated by assessment Educate [...] and prevent overall improvement and discharge Normal [facility] BASIC METABOLIC PANELon 02- 9-2024 Anion gap [Moles/Vol] 11 mmol/L Normal 7-20 [facility] Comment on above: Performed By: #### L [id number] #### [facility] ([facility]) [address] [place] [address] Calcium [Mass/Vol] 9.0 mg/dL Normal 8.6-10.3 [facility] Comment on above: Performed By: #### L [id number] #### [facility] ([facility] [address] [place] [address] Chloride [Moles/Vol] 91 mmol/L Low 98-107 [facility] Comment on above: Performed By: #### L [id number] #### [facility] ([facility] [address] [place] [address] CO2 [Moles/Vol] 37 mmol/L High 21-31 [facility] Comment on above: Performed By: #### L [id number] #### [facility] ([facility] [address] [place] [address] Creatinine [Mass/Vol] 0.89 mg/dL Normal 0.60-1.20 [facility] Comment on above: Performed By: #### L [id number] #### [facility] ([facility]) [address] [place] [address] GLOMERULAR FILTRATION RATE ML/MIN/1.73 SQ M.PREDICTED 73.3 mL/min/1.73m*2 Normal >60.0 [facility] Comment on above: Result Comment: [facility]???s estimated glomerular filtration rate (eGFR) will [...] individuals. Performed By: #### L [id number] #### [facility] ([facility]) [address] [place] [address] Glucose [Mass/Vol] 123 mg/dL High 70-100 [facility] Comment on above: Performed By: #### L [id number] #### [facility] ([facility]) [address] [place] [address] Potassium [Moles/Vol] 3.7 mmol/L Normal 3.5-5.1 [facility] Comment on above: Performed By: #### L [id number] #### [facility] ([facility]) [address] [place] [address] Sodium [Moles/Vol] 135 mmol/L Low 136-145 [facility] Comment on above: Performed By: #### L [id number] #### [facility] ([facility]) [address] [place] [address] Urea nitrogen [Mass/Vol] 29 mg/dL High 7-25 [facility] Comment on above: Performed By: #### L [id number] #### [facility] ([facility]) [address] [place] [address] UREA NITROGEN/CREATININE (MASS RATIO) IN SER/PLAS 32.6 Normal [facility] Comment on above: Performed By: #### L [id number] #### [facility] ([facility]) [address] [place] [address] CBCon 07-02-2023 Erythrocyte distribution width (RBC) [Ratio] 15.8 % High 11.5-15.0 [facility] Comment on above: Performed By: #### L [id number] ####[facility] ([facility])[address] [place] [address] ERYTHROCYTE MEAN CORPUSCULAR HEMOGLOBIN CONCENTRATION (G/DL) BY AUTOMATED 31.8 g/dL Low 32.0-35.0 [facility] Comment on above: Performed By: #### L [id number] ####[facility] ([facility])[address] [place] [address] Hematocrit (Bld) [Volume fraction] 44.0 % Normal 36.0-48.0 [facility] Comment on above: Performed By: #### L [id number] ####[facility] (BEAKER)[address] [place] [address] Hemoglobin (Bld) [Mass/Vol] 14.0 g/dL Normal 12.0-15.0 [facility] Comment on above: Performed By: #### L [id number] ####[facility] ([facility])[address] [place], [place] [address] MCH (RBC) [Entitic mass] 27.9 pg Normal 27.0-33.0 [facility] Comment on above: Performed By: #### L [id number] ####[facility] ([facility])[address] [place] [address] MCV (RBC) [Entitic vol] 87.8 fL Normal 82.0-98.0 [facility] Comment on above: Performed By: #### L [id number] ####[facility] ([facility])[address] [place] [address] PLATELETS (10*3/UL) IN BLOOD AUTOMATED COUNT 285 10*3/uL Normal 150-400 [facility] Comment on above: Performed By: #### L [id number] ####[facility] ([facility])[address] [place] [address] RBC (Bld) [#/Vol] 5.01 10*6/uL High 3.80-5.00 [facility] Comment on above: Performed By: #### L [id number] ####[facility] ([facility])[address] [place], [place] [address] WBC (Bld) [#/Vol] 8.89 10*3/uL Normal 4.00-10.60 [facility] Comment on above: Performed By: #### L [id number] ####[facility] ([facility])[address] [place], [place] [address] DSon 07-02-2023 DS Admit Date 06/29/2023 Discharge Date 07/02/2023 Discharge Diagnosis NSTEMI Acute on chronic HFpEF NYHA class 2 CAD DMII noninsulin dependent Chronic pain Anxiety GERD Tobacco abuse Discharge Disposition [place] [facility] [place] Discharge Medications Your medication list START [...] Medications These medications were sent to [facility] [address] [place] [address] [address] [facility] [place] [address], [facility] [address] furosemide 40 mg tablet spironolactone 25 mg tablet Activity Normal activity as tolerated Diet Continue on the same type of diet and foods as you were eating before your admission. Drink plenty of water. Allergies Hay fever and allergy relief and House dust Hospital Course History of Present Illness Vivian Vann is an 63 y.o. female who came from [facility] as direct asmission for NSTEMI. Patient presented 06/28/23 to [facility] for c/o chest pain and lower back pain. Patient troponin level found to be 557 and EKG showed new ischemia and inverted T-waves, NSTEMI. She was given nitroglycerin and started on heparin drip. Patient is 1 year s/p stent placement at [facility] on plavix and aspirin. Dr. Yoo with cardiology agreed to patient transfer here to [facility] with hospital medicine admitting and [...] Low back pending. Laboratory workup here at [facility] shows CBC unremarkable w/ exception [...] General: Abdo (more content not included)... Normal [facility] POCT GLUCOSE METER UNSOLICIT ED RESULTSon 07-02-2023 Glucose [Mass/Vol] 117 mg/dL High 70-105 [facility] Comment on above: Order Comment: Waive d Testing in the ED is performed under the ED CLIA certificate #[id number]. Result Comment: [email or web address] Performed By: #### L [id number] #### [facility] ([facility]) [address] [place] [address] Glucose [Mass/Vol] 110 mg/dL High 70-105 [facility] Comment on above: Order Comment: Waive d Testing in the ED is performed under the ED CLIA certificate #[id number]. Result Comment: [email or web address] Performed By: #### L [id number] ####[facility] (AKER)[address] [place] [address] 30on 07-01-2023 30 The patient is Moderately [...] and behaviors that affect risk of falls [place] fall precautions as indicated by assessment Educate [...] and prevent overall improvement and discharge Normal [facility] BASIC METABOLIC PANELon 06-14 Anion gap [Moles/Vol] 10 mmol/L Normal 7-20 [facility] Comment on above: Performed By: #### L [id number] #### [facility] ([facility]) [address] [place] [address] Calcium [Mass/Vol] 8.3 mg/dL Low 8.6-10.3 [facility] Comment on above: Performed By: #### L [id number] #### [facility] ([facility]) [address] [place] [address] Chloride [Moles/Vol] 98 mmol/L Normal 98-107 [facility] Comment on above: Performed By: #### L [id number] #### [facility] ([facility]) [address] [place] [address] CO2 [Moles/Vol] 35 mmol/L High 21-31 [facility] Comment on above: Performed By: #### L [id number] #### [facility] ([facility]) [address] [place] [address] Creatinine [Mass/Vol] 1.08 mg/dL Normal 0.60-1.20 [facility] Comment on above: Performed By: #### L [id number] #### [facility] ([facility]) [address] [place] [address] GLOMERULAR FILTRATION RATE ML/MIN/1.73 SQ M.PREDICTED 58.1 mL/min/1.73m*2 Low >60.0 [facility] Comment on above: Result Comment: [facility]???s estimated glomerular filtration rate (eGFR) will [...] individuals. Performed By: #### L [id number] #### [facility] ([facility]) [address] [place] [address] Glucose [Mass/Vol] 116 mg/dL High 70-100 [facility] Comment on above: Performed By: #### L [id number] #### [facility] ([facility]) [address] [place] [address] Potassium [Moles/Vol] 3.7 mmol/L Normal 3.5-5.1 [facility] Comment on above: Performed By: #### L [id number] #### [facility] ([facility]) [address] [place] [address] Sodium [Moles/Vol] 139 mmol/L Normal 136-145 [facility] Comment on above: Performed By: #### L [id number] #### [facility] ([facility]) [address] [place] [address] Urea nitrogen [Mass/Vol] 27 mg/dL High 7-25 [facility] Comment on above: Performed By: #### L [id number] #### [facility] ([facility]) [address] [place] [address] UREA NITROGEN/CREATININE (MASS RATIO) IN SER/PLAS 25.0 Normal [facility] Comment on above: Performed By: #### L [id number] #### [facility] ([facility]) [address] [place] [address] POCT GLUCOSE METER UNSOLICIT ED RESULTSon 07-01-2023 Glucose [Mass/Vol] 132 mg/dL High 70-105 [facility] Comment on above: Order Comment: Waive d Testing in the ED is performed under the ED CLIA certificate #[id number]. Result Comment: [email or web address] Performed By: #### L [id number] ####[facility] ([facility])[address] [place] [address] Glucose [Mass/Vol] 106 mg/dL High 70-105 [facility] Comment on above: Order Comment: Waive d Testing in the ED is performed under the ED CLIA certificate #[id number]. Result Comment: [email or web address] Performed By: #### L [id number] #### [facility] ([facility]) [address] [place] [address] Glucose [Mass/Vol] 121 mg/dL High 70-105 [facility] Comment on above: Order Comment: Waive d Testing in the ED is performed under the ED CLIA certificate #[id number]. Result Comment: [email or web address] Performed By: #### L [id number] ####[facility] ([facility])[address] [place] [address] Glucose [Mass/Vol] 105 mg/dL Normal 70-105 [facility] Comment on above: Order Comment: Waive d Testing in the ED is performed under the ED CLIA certificate #[id number]. Result Comment: [email or web address] Performed By: #### L [id number] ####[facility] ([facility])[address] [place] [address] 30on 06-30-2023 30 The patient is Moderately [...] and maintained or improved Outcome: Progressing Normal [facility] ANTI-XA (HEPARIN LEVEL)on HEPARIN UNFRACTIONATED (U/ML) IN PPP BY CHROMOGENIC METHOD <0.10 Invalid Interpretation Code 0.3-0.7 [facility] Comment on above: Order Comment: Check anti-Xa level every 6 hours while on heparin infusion, or per protocol. Result Comment: [place] roxaban and Apixaban will interfere with the anti Xa assay used to monitor UFH and LMWH. Performed By: #### L [id number] #### [facility] ([facility]) [address] [place] [address] CBCon 06-30-2023 Erythrocyte distribution width (RBC) [Ratio] 15.3 % High 11.5-15.0 [facility] Comment on above: Performed By: #### L [id number] ####[facility] ([facility])[address] [place] [address] ERYTHROCYTE MEAN CORPUSCULAR HEMOGLOBIN CONCENTRATION (G/DL) BY AUTOMATED 32.2 g/dL Normal 32.0-35.0 [facility] Comment on above: Performed By: #### L [id number] ####[facility] ([facility])[address] [place] [address] Hematocrit (Bld) [Volume fraction] 35.7 % Low 36.0-48.0 [facility] Comment on above: Performed By: #### L [id number] ####[facility] ([facility]ER)[address] [place] [address] Hemoglobin (Bld) [Mass/Vol] 11.5 g/dL Low 12.0-15.0 [facility] Comment on above: Performed By: #### L [id number] ####[facility] ([facility])[address] [place] [address] MCH (RBC) [Entitic mass] 28.1 pg Normal 27.0-33.0 [facility] Comment on above: Performed By: #### L [id number] ####[facility] (BEAKER)[address] [place] [address] MCV (RBC) [Entitic vol] 87.3 fL Normal 82.0-98.0 [facility] Comment on above: Performed By: #### L [id number] ####[facility] ([facility])[address] [place] [address] PLATELETS (10*3/UL) IN BLOOD AUTOMATED COUNT 219 10*3/uL Normal 150-400 [facility] Comment on above: Performed By: #### L [id number] ####[facility] ([facility]ER)[address] [place] [address] RBC (Bld) [#/Vol] 4.09 10*6/uL Normal 3.80-5.00 [facility] Comment on above: Performed By: #### L [id number] ####[facility] (BEAKER)[address] [place] [address] WBC (Bld) [#/Vol] 10.22 10*3/uL Normal 4.00-10.60 [facility] Comment on above: Performed By: #### L [id number] ####[facility] (BEAKER)[address] [place] [address] CONSULTon 06-30-2023 CONSULT Clinical Nutrition Assessment Name: [...] with questions and contact the dietitian via [employer] chat 8A-4P Sunday-Sunday. Or call the dietitian's office at extension [phone]. For weekends/holidays, the dietitian's can be reached by paging [phone] from 9A-3P. Unable to be reached via [employer] chat on Sunday & s.) Normal [facility] HEMOGLOBIN A1Con 06-30-2023 Glucose [Mass/Vol] 143 mg/dL Normal [facility] Comment on above: Performed By: #### L [id number] #### [facility] ([facility]) [address] [place] [address] HbA1c (Bld) [Mass fraction] 6.6 % High 4.0-6.0 [facility] Comment on above: Performed By: #### L [id number] #### [facility] ([facility]) [address] [place] [address] LACTIC ACID WITH 4 HOUR REFL EXon 06-30-2023 LACTATE (MMOL/L) IN SER/PLAS 1.9 mmol/L Normal 0.5-2.2 [facility] Comment on above: Performed By: #### L [id number] #### [facility] ([facility]) [address] [place] [address] POCT GLUCOSE METER UNSOLICIT ED RESULTSon 06-30-2023 Glucose [Mass/Vol] 156 mg/dL High 70-105 [facility] Comment on above: Order Comment: Waive d Testing in the ED is performed under the ED CLIA certificate #[id number]. Result Comment: [email or web address] Performed By: #### L [id number] #### [facility] ([facility]) [address] [place] [address] Glucose [Mass/Vol] 149 mg/dL High 70-105 [facility] Comment on above: Order Comment: Waive d Testing in the ED is performed under the ED CLIA certificate #[id number]. Result Comment: [email or web address] Performed By: #### L [id number] #### [facility] ([facility]) [address] [place] [address] Glucose [Mass/Vol] 181 mg/dL High 70-105 [facility] Comment on above: Order Comment: Waive d Testing in the ED is performed under the ED CLIA certificate #[id number]. Result Comment: [email or web address] Performed By: #### L [id number] #### [facility] ([facility]) [address] [place] [address] 30on 06-29-2023 30 The patient is Moderately [...] and maintained or improved Outcome: Progressing Normal [facility] 30 The patient is Moderately Stable - Low risk of patient condition declining or worsening The patient's goals for the shift include no chest pain The clinical goals for the shift include vss Over the shift, the patient did not make progress toward the following goals. Barriers to progression include . Recommendations to address these barriers include . Normal [facility] APTTon 06-29-2023 ACTIVATED PARTIAL THROMBOPLASTIN TIME IN PPP BY COAGULATION ASSAY 67.3 Seconds High 25.0-35.0 [facility] Comment on above: Result Comment: Clin ical significance of the APTT is questionable in the presence of heparin. Performed By: #### L [id number] #### [facility] ([facility]) [address] [place] [address] B-TYPE NATRIURETIC PEPTIDEon 06-29-2023 Natriuretic peptide B (Bld) [Mass/Vol] 1683 pg/mL High 0-100 [facility] Comment on above: Performed By: #### L [id number] #### [facility] ([facility]) [address] [place] [address] BASIC METABOLIC PANELon 06-14 Anion gap [Moles/Vol] 14 mmol/L Normal 7-20 [facility] Comment on above: Performed By: #### L [id number] #### [facility] ([facility]) [address] [place] [address] Calcium [Mass/Vol] 8.2 mg/dL Low 8.6-10.3 [facility] Comment on above: Performed By: #### L [id number] #### [facility] [address] [place] [address] Chloride [Moles/Vol] 102 mmol/L Normal 98-107 [facility] Comment on above: Performed By: #### L [id number] #### [facility] ([facility]) [address] [place] [address] CO2 [Moles/Vol] 25 mmol/L Normal 21-31 [facility] Comment on above: Performed By: #### L [id number] #### [facility] ([facility]) [address] [place] [address] Creatinine [Mass/Vol] 1.04 mg/dL Normal 0.60-1.20 [facility] Comment on above: Performed By: #### L [id number] #### [facility] ([facility]) [address] [place] [address] GLOMERULAR FILTRATION RATE ML/MIN/1.73 SQ M.PREDICTED 60.8 mL/min/1.73m*2 Normal >60.0 [facility] Comment on above: Result Comment: [facility]???s estimated glomerular filtration rate (eGFR) will [...] individuals. Performed By: #### L [id number] #### [facility] ([facility]) [address] [place] [address] Glucose [Mass/Vol] 268 mg/dL High 70-100 [facility] Comment on above: Performed By: #### L [id number] #### [facility] ([facility]) [address] [place] [address] Potassium [Moles/Vol] 4.1 mmol/L Normal 3.5-5.1 [facility] Comment on above: Performed By: #### L [id number] #### [facility] ([facility]AKER) [address] [place] [address] Sodium [Moles/Vol] 137 mmol/L Normal 136-145 [facility] Comment on above: Performed By: #### L [id number] #### [facility] ([facility]) [address] [place] [address] Urea nitrogen [Mass/Vol] 14 mg/dL Normal 7-25 [facility] Comment on above: Performed By: #### L [id number] #### [facility] ([facility]) [address] [place] [address] UREA NITROGEN/CREATININE (MASS RATIO) IN SER/PLAS 13.5 Normal [facility] Comment on above: Performed By: #### L [id number] #### [facility] ([facility]) [address] [place] [address] CBCon 06-29-2023 Erythrocyte distribution width (RBC) [Ratio] 15.3 % High 11.5-15.0 [facility] Comment on above: Performed By: #### L [id number] #### [facility] ([facility]) [address] [place] [address] ERYTHROCYTE MEAN CORPUSCULAR HEMOGLOBIN CONCENTRATION (G/DL) BY AUTOMATED 31.8 g/dL Low 32.0-35.0 [facility] Comment on above: Performed By: #### L [id number] #### [facility] ([facility]) [address] [place] [address] Hematocrit (Bld) [Volume fraction] 39.3 % Normal 36.0-48.0 [facility] Comment on above: Performed By: #### L [id number] #### [facility] ([facility]) [address] [place] [address] Hemoglobin (Bld) [Mass/Vol] 12.5 g/dL Normal 12.0-15.0 [facility] Comment on above: Performed By: #### L [id number] #### [facility] ([facility]) [address] [place] [address] MCH (RBC) [Entitic mass] 28.4 pg Normal 27.0-33.0 [facility] Comment on above: Performed By: #### L [id number] #### [facility] ([facility]) [address] [place] [address] MCV (RBC) [Entitic vol] 89.3 fL Normal 82.0-98.0 [facility] Comment on above: Performed By: #### L [id number] #### [facility] ([facility]) [address] [place] [address] PLATELETS (10*3/UL) IN BLOOD AUTOMATED COUNT 218 10*3/uL Normal 150-400 [facility] Comment on above: Performed By: #### L [id number] #### [facility] ([facility]) [address] [place] [address] RBC (Bld) [#/Vol] 4.40 10*6/uL Normal 3.80-5.00 [facility] Comment on above: Performed By: #### L [id number] #### [facility] ([facility]) [address] [place] [address] WBC (Bld) [#/Vol] 9.91 10*3/uL Normal 4.00-10.60 [facility] Comment on above: Performed By: #### L [id number] #### [facility] ([facility]) [address] [place] [address] COMPREHENSIVE METABOLIC PANE [place] 06-29-2023 Albumin [Mass/Vol] 3.8 g/dL Normal 3.5-5.7 [facility] Comment on above: Performed By: #### L [id number] #### [facility] [address] [place] [address] ALP [Catalytic activity/Vol] 77 U/L Normal 34-104 [facility] Comment on above: Performed By: #### L [id number] #### [facility] ([facility]) [address] [place] [address] ALT [Catalytic activity/Vol] 23 U/L Normal 7-52 [facility] Comment on above: Performed By: #### L [id number] #### [facility] ([facility]) [address] [place] [address] Anion gap [Moles/Vol] 10 mmol/L Normal 7-20 [facility] Comment on above: Performed By: #### L [id number] #### [facility] ([facility]) [address] [place] [address] AST [Catalytic activity/Vol] 23 U/L Normal 13-39 [facility] Comment on above: Performed By: #### L [id number] #### [facility] ([facility]) [address] [place] [address] Bilirubin [Mass/Vol] 0.4 mg/dL Normal 0.3-1.0 [facility] Comment on above: Performed By: #### L [id number] #### [facility] ([facility]) [address] [place] [address] Calcium [Mass/Vol] 8.6 mg/dL Normal 8.6-10.3 [facility] Comment on above: Performed By: #### L [id number] #### [facility] (BEAKER) [address] [place] [address] Chloride [Moles/Vol] 107 mmol/L Normal 98-107 [facility] Comment on above: Performed By: #### L [id number] #### [facility] ([facility]AKER) [address] [place] [address] CO2 [Moles/Vol] 27 mmol/L Normal 21-31 [facility] Comment on above: Performed By: #### L [id number] #### [facility] ([facility]AKER) [address] [place] [address] Creatinine [Mass/Vol] 1.01 mg/dL Normal 0.60-1.20 [facility] Comment on above: Performed By: #### L [id number] #### [facility] ([facility]) [address] [place] [address] GLOMERULAR FILTRATION RATE ML/MIN/1.73 SQ M.PREDICTED 62.9 mL/min/1.73m*2 Normal >60.0 [facility] Comment on above: Result Comment: [facility]???s estimated glomerular filtration rate (eGFR) will [...] individuals. Performed By: #### L [id number] #### [facility] ([facility]) [address] [place] [address] Glucose [Mass/Vol] 148 mg/dL High 70-100 [facility] Comment on above: Performed By: #### L [id number] #### [facility] ([facility]) [address] [place] [address] Potassium [Moles/Vol] 4.2 mmol/L Normal 3.5-5.1 [facility] Comment on above: Performed By: #### L [id number] #### [facility] ([facility]) [address] [place] [address] Protein [Mass/Vol] 6.3 g/dL Normal 6.0-8.3 [facility] Comment on above: Performed By: #### L [id number] #### [facility] ([facility]) [address] [place] [address] Sodium [Moles/Vol] 140 mmol/L Normal 136-145 [facility] Comment on above: Performed By: #### L [id number] #### [facility] (BEAKER) [address] [facility] [place] [address] Urea nitrogen [Mass/Vol] 10 mg/dL Normal 7-25 [facility] Comment on above: Performed By: #### L [id number] #### [facility] (BEAKER) [address] [facility] [place] [address] UREA NITROGEN/CREATININE (MASS RATIO) IN SER/PLAS 9.9 Normal [facility] Comment on above: Performed By: #### L [id number] #### [facility] (BEAKER) [address] [facility] [place] [address] CONSULTon 06-29-2023 CONSULT - Attestation signed by [...] tobacco use comes as a transfer from [facility] due to suspected NSTEMI. Patient was [...] Her troponins were elevated at 557 at [facility] and recheck here shows 0.07. Patient [...] Value Ventricular Rate 61 Atrial Rate 61 RI Interval 150 (more content not included)... Normal [facility] HPon 06-29-2023 HP Interval Pre-Procedural H&P Reason for Consult: NSTEMI HPI: Vivian Vann is a 63 y.o. female with PMH of CAD s/p PCI to LAD (October 2021), HTN, HLD, COPD, tobacco use comes as a transfer from [facility] due to suspected NSTEMI. Patient was [...] Her troponins were elevated at 557 at [facility] and recheck here shows 0.07. Patient [...] Value Ventricular Rate 61 Atrial Rate 61 RI Interval 150 QRS DURATION 88 QT Interval 476 QTC CALCULATION(BAZETT) 479 P Prather 68 R-Prather 25 T Wave Prather 128 Impression Normal sinus rhythm Right atrial [...] deformity. End (more content not included)... Normal [facility] LACTIC ACID WITH 4 HOUR REFL EXon 06-29-2023 LACTATE (MMOL/L) IN SER/PLAS 3.6 mmol/L Critically high 0.5-2.2 [facility] Comment on above: Result Comment: M-RI EVIOUS CRITICAL RESULT Previous result verified on 06/29/20231808 on specimen/case [id number] called with component Lactate blood venous for procedure Lactic acid with 4 hour reflex with value 2.7 mmol/L. Performed By: #### L [id number] #### [facility] ([facility]) [address] [place] [address] LACTATE (MMOL/L) IN SER/PLAS 2.7 mmol/L Critically high 0.5-2.2 [facility] Comment on above: Performed By: #### L [id number] #### [facility] ([facility]) [address] [place] [address] LACTATE (MMOL/L) IN SER/PLAS 2.5 mmol/L High 0.5-2.2 [facility] Comment on above: Performed By: #### L [id number] ####[facility] ([facility])[address] [place] [address] MAGNESIUMon 06-29-2023 Magnesium [Mass/Vol] 2.1 mg/dL Normal 1.9-2.7 [facility] Comment on above: Performed By: #### L [id number] ####[facility] ([facility])[address] [place] [address] Magnesium [Mass/Vol] 2.2 mg/dL Normal 1.9-2.7 [facility] Comment on above: Performed By: #### L [id number] #### [facility] (BEAKER) [address] [place] [address] Magnesium [Mass/Vol] 1.7 mg/dL Low 1.9-2.7 [facility] Comment on above: Performed By: #### L [id number] #### [facility] (BEAKER) [address] [facility] [address] NURSNOTEon 06-29-2023 NURSNOTE Notified [place] [facility] Hospitalist critical lactate 2.7 no orders received said she would recheck lactate in 4 hrs Normal [facility] PHOSPHORUSon 06-29-2023 Magnesium [Mass/Vol] 3.5 mg/dL Normal 2.5-5.0 [facility] Comment on above: Performed By: #### L [id number] #### [facility] ([facility]) [address] [place] [address] PROTIME-INRon 06-29-2023 INR IN PPP BY COAGULATION ASSAY 0.98 Normal 0.90-1.10 [facility] Comment on above: Result Comment: ACCC [...] CHEST 1995;[id number]. Performed By: #### L [id number] ####[facility] ([facility])[address] [place] [address] PROTHROMBIN TIME (PT) IN PPP BY COAGULATION ASSAY 13.0 Seconds Normal 12.3-14.8 [facility] Comment on above: Performed By: #### L [id number] ####[facility] ([facility])[address] [place] [address] TROPONIN Ion 06-29-2023 Troponin I.cardiac [Mass/Vol] 0.06 ng/mL High 0.00-0.04 [facility] Comment on above: Performed By: #### L [id number] #### [facility] ([facility]) [address] [place] [address] Troponin I.cardiac [Mass/Vol] 0.07 ng/mL High 0.00-0.04 [facility] Comment on above: Performed By: #### L [id number] ####[facility] ([facility])[address] [place] [address] Troponin I.cardiac [Mass/Vol] 0.07 ng/mL High 0.00-0.04 [facility] Comment on above: Performed By: #### L [id number] #### [facility] ([facility]) [address] [place] [address] CBC W MANUAL DIFFon 08-25-19 23 ANISOCYTOSIS 1+ Normal The [facility] Comment on above: Performed By: #### Isabell PONCE ####[facility] [address] [place] [address]Dr. Yilan Yañez ATYPICAL LYMPH # Normal [facility] Comment on above: Performed By: #### Isabell PONCE ####[facility] [address] [place] [id number]. Yilan Yañez ATYPICAL LYMPH % Normal [facility] Comment on above: Performed By: #### Isabell PONCE ####[facility] [address]beldqubnu[address] [place] [address]Dr. Yilan Yañez BAND # 0.2 103/ul Normal 0.0-0.3 [facility] Comment on above: Performed By: #### Isabell PONCE ####[facility] [address]kg[address]ms[address] [place] [id number]. Nahed Yañez BAND % 1 % Normal 0-5 [facility] Comment on above: Performed By: #### C BCISAIAH ####[facility] Vnztqcphpu45[address] [place] [id number]. Nahed Yañez BASOM # 0.00 103/ul Normal 0.00-0.10 [facility] Comment on above: Performed By: #### C BCISAIAH ####[facility] [address]itvxcts[address] [place] [address]Dr. Nahed Yañez BASOM % 0.0 % Critically low 0.2-2.0 [facility] Comment on above: Performed By: #### C BCISAIAH ####[facility] [address] [place] [address]Dr. Nahed Yañez BLAST # Normal [facility] Comment on above: Performed By: #### C BCISAIAH ####[facility] [address]uunoqwcq[address] [place] [address]Dr. Nahed Yañez BLAST % Normal [facility] Comment on above: Performed By: #### C BCISAIAH ####[facility] [address]arket[address] [place] [address]Dr. Nahed Yañez CORRECTED WBC Normal 4.0-11.0 [facility] Comment on above: Performed By: #### C BCISAIAH ####[facility] Y[address]ixmy[address] [place] [address]Dr. Nahed Yañez EOS # 0.00 103/ul Normal 0.00-0.70 [facility] Comment on above: Performed By: #### C BCISAIAH ####[facility] Exihevxynb16[address] [place] [address]Dr. Nahed Yañez EOS% 0.0 % Critically low 0.9-7.0 [facility] Comment on above: Performed By: #### C BCISAIAH ####[facility] Wqzuduzsbj[address] [place] [address]Dr. Nahed Yañez HCT 33.9 % Critically low 36.0-48.0 [facility] Comment on above: Performed By: #### C ROSARIO ####[facility] [address]ahwqpm[address] [place], [place] [address]Se. Nahed Yañez HGB 10.8 g/dl Critically low 12.0-16.0 [facility] Comment on above: Performed By: #### C ROSARIO ####[facility] Askrljfohm54[address] [place], [place] [address]Zm. Nahed Yañez HYPOCHROMASIA SLIGHT Normal [facility] Comment on above: Performed By: #### C ROSARIO ####[facility] Pohavlroym9734 [place], [place] [address]Sj. Nahed Yañez LYMPHM # 2.59 103/ul Normal 1.20-3.80 [facility] Comment on above: Performed By: #### C ROSARIO ####[facility] Lnutsztaij[address] [place] [phone]. Nahed Yañez LYMPHM% 16.0 % Critically low 20.5-60.0 [facility] Comment on above: Performed By: #### Isabell PONCE ####[facility] Ypuogezkmp9397 [place], [place] [address]Rg. Nahed Yañez MCH 28.5 pg Normal 26.7-34.0 [facility] Comment on above: Performed By: #### C ROSARIO ####[facility] Yrwltbouwo7988 [place] [phone]. Nahed Yañez MCHC 31.9 g/dl Normal 29.9-35.2 [facility] Comment on above: Performed By: #### Isabell PONCE ####[facility] Xeitbbqvzq7247 [place], [place] [address]Qs. Nahed Yañez MCV 89.4 fL Normal 81.0-99.0 [facility] Comment on above: Performed By: #### C ROSARIO ####[facility] Bcyhlersak9[address] [place] [phone]. Nahde Yañez METAMYELOCYTE # Normal [facility] Comment on above: Performed By: #### Isabell PONCE ####[facility] Jpybhccgrt6688 [place] [phone]. Nahed Yañez METAMYELOCYTE % Normal [facility] Comment on above: Performed By: #### C ROSARIO ####[facility] Mboanzlcpv5434 [place] [phone]. Nahed Yañez MONOM# 1.30 103/ul Critically high 0.30-0.80 [facility] Comment on above: Performed By: #### C ROSARIO ####[facility] Kplkubmlat9043 [place] [phone]. Nahed Yañez MONOM% 8.0 % Normal 1.7-12.0 [facility] Comment on above: Performed By: #### C ROSARIO ####[facility] Udcilvrxxm5741 [place] [phone]. Nahed Yañez MPV 9.8 fL Normal 9.5-13.5 [facility] Comment on above: Performed By: #### C ROSARIO ####[facility] [address] [place], [place] [address]Dr. Nahed Yañez MYELOCYTE # Normal The [facility] Comment on above: Performed By: #### C ROSARIO ####[facility] Mkpfpivxep[address] [place], [place] [address]Dr. Nahed Yañez MYELOCYTE % Normal The [facility] Comment on above: Performed By: #### C ROSARIO ####[facility] Wxenvufuid[address] [place], [place] [address]Dr. Nahed Yañez NRBC Normal The [facility] Comment on above: Performed By: #### C ROSARIO ####[facility] Omnrjemusv6756 [place] [phone]. Nahed Yañez PLT 302 103/ul Normal 150-450 [facility] Comment on above: Performed By: #### C ROSARIO ####[facility] Eirzw[address]sox[address] [place], [place] [address]Dr. Nahed Yañez RBC 3.79 106/ul Critically low 4.20-5.40 [facility] Comment on above: Performed By: #### C ROSARIO ####[facility] Qiarymbbze[address] [place], [place] [address]Dr. Nahed Otilio RDW 15.3 % Critically high 11.0-15.0 [facility] Comment on above: Performed By: #### C BCMAN ####[facility] Swsrmyjxix0106 [place] [phone]. Nahed Yañez SEG # 12.15 103/ul Critically high 1.40-6.50 [facility] Comment on above: Performed By: #### C BCMAN ####[facility] Sdimxnmuar3668 [place] [phone]. Nahed Yañez SEG % 75.0 % Normal 43.0-75.0 [facility] Comment on above: Performed By: #### C BCMAN ####[facility] Mjijwpgzgt4597 [place] [address]Dr. Nahed Yañez WBC 16.2 103/ul Critically high 4.0-11.0 [facility] Comment on above: Performed By: #### C ROSARIO ####[facility] Ednkxggxhx9122 [place] [address]Dr. Rosemarieashley Yañez POINT OF CARE GLUCOSEon 08-12 Glucose [Mass/Vol] 221 mg/dL Critically high 74-106 [facility] Comment on above: Performed By: #### P OCGLUC ####[facility] Ozherucumk1227 [place] [address]Dr. Rosemarieashley Yañez PROF 14(COMP METB)on 023 Albumin [Mass/Vol] 2.2 g/dL Critically low 3.4-5.0 [facility] Comment on above: Performed By: #### C RENZO, JUDY ####[facility] Uokpxnkvcu7707 [place] [address]Dr. Rosemarieashley Yañez Albumin/Globulin [Mass ratio] 0.6 {ratio} Normal [facility] Comment on above: Performed By: #### C RENZO, JUDY ####[facility] Fiqxgxxkgj0130 [place] [address]Dr. Rosemarieashley Yañez ALP [Catalytic activity/Vol] 87 U/L Normal 46-116 [facility] Comment on above: Performed By: #### C RENZO, JUDY ####[facility] Cqfwwzozun8783 [place] [address]Dr. Nahed Yañez ALT [Catalytic activity/Vol] 17 U/L Normal 14-59 [facility] Comment on above: Performed By: #### C RENZO, JUDY ####[facility] [address]cc[address] [place], [place] [address]Dr. Nahed Yañez Anion gap [Moles/Vol] 9.4 mmol/L Normal [facility] Comment on above: Performed By: #### C RENZO, JUDY ####[facility] Wwerllsnvl[address] [place], [place] [address]Dr. Nahed Yañez AST [Catalytic activity/Vol] 13 U/L Critically low 15-37 [facility] Comment on above: Performed By: #### C RENZO, JUDY ####[facility] Hlaoosscof[address] [place], [place] [address]Dr. Nahed Yañez Bilirubin [Mass/Vol] 0.2 mg/dL Normal 0.2-1.0 [facility] Comment on above: Performed By: #### C RENZO, JUDY ####[facility] [address]psosufyix[address] [place], [place] [address]Dr. Nahed Yañez Calcium [Mass/Vol] 9.1 mg/dL Normal 8.5-10.1 [facility] Comment on above: Performed By: #### C RENZO, JUYD ####[facility] [address]ollkumrdz[address] [place], [place] [address]Dr. Nahed Yañez Chloride [Moles/Vol] 103 mmol/L Normal 98-107 [facility] Comment on above: Performed By: #### C RENZO, JUDY ####[facility] Crzerdlsca[address] [place], [place] [address]Dr. Nahed Yañez CO2 [Moles/Vol] 29.1 mmol/L Normal 21.0-32.0 [facility] Comment on above: Performed By: #### C RENZO, JUDY ####[facility] Bwkgmglhtx[address] [place], [place] [address]Dr. Nahed Yañez Creatinine [Mass/Vol] 1.05 mg/dL Critically high 0.55-1.02 [facility] Comment on above: Performed By: #### C RENZO, JUDY ####[facility] Nobfpbnhml4150 [place] [phone]. Nahed Yañez EGFR-AF SOL[place] ISLANDER >60 Normal >=60 [facility] Comment on above: Performed By: #### C MP, JUDY ####[facility] Xqpcyogfkg8742 [place] [phone]. Nahed Yañez EGFR-NON AF [place]ER 53 mL/min/1.73m2 Critically low >=60 [facility] Comment on above: Performed By: #### C RENZO, JUDY ####[facility] Vgygbcnxoe2391 [place] [address]Dr. Nahed Yañez Globulin (S) [Mass/Vol] 3.5 g/dL Normal [facility] Comment on above: Performed By: #### C RENZO, JUDY ####[facility] Sdbtdmgemb2117 [place] [address]Dr. Nahed Yañez Glucose [Mass/Vol] 121 mg/dL Critically high 74-106 [facility] Comment on above: Performed By: #### C RENZO, JUDY ####[facility] Cgqslhnhnk4607 [place] [address]Dr. Nahed Yañez Potassium [Moles/Vol] 4.5 mmol/L Normal 3.5-5.1 [facility] Comment on above: Performed By: #### C RENZO, JUDY ####[facility] Tmxuxlqukw4707 [place] [address]Dr. Nahed Yañez Protein [Mass/Vol] 5.7 g/dL Critically low 6.4-8.2 [facility] Comment on above: Performed By: #### C RENZO, JUDY ####[facility] Gkxiegucrp5507 [place] [address]Dr. Nahed Yañez Sodium [Moles/Vol] 137 mmol/L Normal 136-145 [facility] Comment on above: Performed By: #### C RENZO, JUDY ####[facility] Bzfqdeolak6128 [place] [address]Dr. Nahed Yañez Urea nitrogen [Mass/Vol] 24.0 mg/dL Critically high 7.0-18.0 [facility] Comment on above: Performed By: #### C RENZO, JUDY ####[facility] Hkokjescmq[address] [place], [place] [address]Dr. Nahed Yañez Urea nitrogen/Creatinine [Mass ratio] 22.9 mg/mg Normal [facility] Comment on above: Performed By: #### C RENZO, JUDY ####[facility] Badjmgccbd2249 [place] [address]Dr. Nahed Otilio THEOPHYLLINEon 08-24-2022 THEOPHYLLINE 18.2 ug/mL Normal 10.0-20.0 [facility] Comment on above: Performed By: #### C RENZO, JUDY ####[facility] Myhzgxhhsf[address] [place], [place] [address]Dr. Nahed Otilio CBC W MANUAL DIFFon 08-24-19 ATYPICAL LYMPH # 0.20 103/ul Normal [facility] Comment on above: Performed By: #### C ROSARIO ####[facility] Tsrvwmeejc[address] [place], [place] [address]Dr. Nahed Otilio ATYPICAL LYMPH % 1 % Normal [facility] Comment on above: Performed By: #### C ROSARIO ####[facility] Ivonvzeydd[address] [place], [place] [address]Dr. Nahed Yañez BAND # 0.0 103/ul Normal 0.0-0.3 [facility] Comment on above: Performed By: #### C ROSARIO ####[facility] Tzykfyxrqo[address] [place], [place] [address]Dr. Rosemarieashley Otilio BAND % 0 % Normal 0-5 [facility] Comment on above: Performed By: #### C ROSARIO ####[facility] Anhfiucnie[address] [place], [place] [address]Dr. Rosemarieashley Otilio BASOM # 0.00 103/ul Normal 0.00-0.10 [facility] Comment on above: Performed By: #### C ROSARIO ####[facility] Cuaxwkpxzf[address] [place], [place] [address]Dr. Nahed Yañez BASOM % 0.0 % Critically low 0.2-2.0 [facility] Comment on above: Performed By: #### C ROSARIO ####[facility] Odsfhbnsnd3191 [place] [address]Dr. Nahed Yañez BLAST # Normal [facility] Comment on above: Performed By: #### C ROSARIO ####[facility] Wcskorixwk7631 [place] [phone]. Nahed Yañez BLAST % Normal [facility] Comment on above: Performed By: #### C ROSARIO ####[facility] Enxmpysrcb[address] [place], [place] [address]Dr. Nahed Yañez CORRECTED WBC Normal 4.0-11.0 [facility] Comment on above: Performed By: #### C ROSARIO ####[facility] Vcyjgkklmw[address] [place], [place] [address]Dr. Nahed Yañez EOS # 0.00 103/ul Normal 0.00-0.70 [facility] Comment on above: Performed By: #### C ROSARIO ####[facility] Jzntvfmbvp[address] [place], [place] [address]Dr. Nahed Yañez EOS% 0.0 % Critically low 0.9-7.0 [facility] Comment on above: Performed By: #### C ROSARIO ####[facility] Bfxavixyul[address] [place], [place] [address]Dr. Nahed Yañez HCT 33.5 % Critically low 36.0-48.0 [facility] Comment on above: Performed By: #### C ROSARIO ####[facility] Wiaydxmsof[address] [place], [place] [address]Dr. Nahed Yañez HGB 10.7 g/dl Critically low 12.0-16.0 [facility] Comment on above: Performed By: #### C ROSARIO ####[facility] Dmculyaaqa[address] [place], [place] [address]Dr. Nahed Yañez LYMPHM # 1.39 103/ul Normal 1.20-3.80 [facility] Comment on above: Performed By: #### C ROSARIO ####[facility] Eouiorsmao[address] [place], [place] [address]Dr. Nahed Yañez LYMPHM% 7.0 % Critically low 20.5-60.0 [facility] Comment on above: Performed By: #### C ROSARIO ####[facility] Btrtoiolrg0852 [place] [id number]. Nahed Yañez MCH 28.5 pg Normal 26.7-34.0 [facility] Comment on above: Performed By: #### C ROSARIO ####[facility] Fqmkkxoqdw4588 [place] [phone]. Nahed Yañez MCHC 31.9 g/dl Normal 29.9-35.2 [facility] Comment on above: Performed By: #### C ROSARIO ####[facility] Hdncwftgct8655 [place] [address]Dr. Nahed Yañez MCV 89.1 fL Normal 81.0-99.0 [facility] Comment on above: Performed By: #### C ROSARIO ####[facility] Mvfqkjdpam[address] [place], [place] [address]Dr. Nahed Yañez METAMYELOCYTE # Normal [facility] Comment on above: Performed By: #### C ROSARIO ####[facility] Hvylhaexvy[address] [place] [address]Dr. Nahed Yañez METAMYELOCYTE % Normal The [facility] Comment on above: Performed By: #### C ROSARIO ####[facility] Agybgvhwzk8049 [place] [address]Dr. Nahed Yañez MONOM# 0.40 103/ul Normal 0.30-0.80 [facility] Comment on above: Performed By: #### C ROSARIO ####[facility] Tfkdilkfmq5848 [place] [id number]. Nahed Yañez MONOM% 2.0 % Normal 1.7-12.0 The [facility] Comment on above: Performed By: #### C ROSARIO ####[facility] Rbyioqqwdf3712 [place] [id number]. Nahed Yañez MPV 10.0 fL Normal 9.5-13.5 The [facility] Comment on above: Performed By: #### C ROSARIO ####[facility] Fkzbhpjisr9650 [place], [place] [address]Tu. Nahed Yañez MYELOCYTE # Normal [facility] Comment on above: Performed By: #### C BCISAIAH ####[facility] Qmsrfsizep3125 [place], [place] [address]Yi. Nahed Yañez MYELOCYTE % Normal The [facility] Comment on above: Performed By: #### C ROSARIO ####[facility] Tyxmsljsmi9686 [place], [place] [address]Ol. Nahed Yañez NRBC Normal The [facility] Comment on above: Performed By: #### C ROSARIO ####[facility] Zgcdvwylfx0267 [place], [place] [address]Lb. Nahed Yañez PLT 338 103/ul Normal 150-450 [facility] Comment on above: Performed By: #### C ROSARIO ####[facility] Onaqfxfnxz9883 [place], [place] [address]Nf. Nahed Yañez RBC 3.76 106/ul Critically low 4.20-5.40 [facility] Comment on above: Performed By: #### C ROSARIO ####[facility] Qutgbdpesb3875 [place], [place] [address]Ud. Nahed Yañez RDW 15.3 % Critically high 11.0-15.0 [facility] Comment on above: Performed By: #### C ROSARIO ####[facility] Cxymzxnznu0563 [place], [place] [address]Uc. Nahed Yañez SEG # 17.91 103/ul Critically high 1.40-6.50 [facility] Comment on above: Performed By: #### C ROSARIO ####[facility] Ewlvvqinkm7288 [place], [place] [address]Kh. Nahed Yañez SEG % 90.0 % Critically high 43.0-75.0 The [facility] Comment on above: Performed By: #### C BCISAIAH ####[facility] Ramwdmnide2796 [place], [place] [address]Yn. Nahed Yañez WBC 19.9 103/ul Critically high 4.0-11.0 [facility] Comment on above: Performed By: #### C BCMAN ####[facility] Sgzindglxh9620 [place] [phone]. Nahed Yañez POINT OF CARE GLUCOSEon 08-12 Glucose [Mass/Vol] 200 mg/dL Critically high 74-106 [facility] Comment on above: Performed By: #### P OCGLUC ####[facility] Cymiilgwfa1862 [place] [address]Dr. Nahed Yañez Glucose [Mass/Vol] 131 mg/dL Critically high 74-106 [facility] Comment on above: Performed By: #### P OCGLUC ####[facility] Ehjnzkzdja8139 [place] [address]Dr. Nahed Yañez Glucose [Mass/Vol] 176 mg/dL Critically high -106 [facility] Comment on above: Performed By: #### P OCGLUC ####[facility] Qpqxqswjtn0434 [place] [address]Dr. Nahed Yañez PROF 14(COMP METB)on 023 Albumin [Mass/Vol] 2.2 g/dL Critically low 3.4-5.0 [facility] Comment on above: Performed By: #### Nydia ELLER CMP ####[facility] Edsynpplwi28[address] [place], [place] [address]Dr. Nahed Yañez Albumin/Globulin [Mass ratio] 0.6 {ratio} Normal [facility] Comment on above: Performed By: #### Nydia ELLER CMP ####[facility] Uygzxttome0499 [place] [address]Dr. Nahed Yañez ALP [Catalytic activity/Vol] 101 U/L Normal 46-116 [facility] Comment on above: Performed By: #### Nydia ELLER CMP ####[facility] Vjtwpfrnkx13[address] [place], [place] [address]Dr. Nahed Yañez ALT [Catalytic activity/Vol] 19 U/L Normal 14-59 [facility] Comment on above: Performed By: #### Nydia ELLER CMP ####[facility] Vibhtcthur4[address] [place], [place] [address]Dr. Nahed Yañez Anion gap [Moles/Vol] 12.0 mmol/L Normal [facility] Comment on above: Performed By: #### Nydia ELLER CMP ####[facility] Ccinzsaqwp8305[address] [place], [place] [address]Dr. Nahed Yañez AST [Catalytic activity/Vol] 14 U/L Critically low 15-37 [facility] Comment on above: Performed By: #### Nydia ELLER CMP ####[facility] Dmnxejsozy[address] [place], [place] [address]Dr. Nahed Yañez Bilirubin [Mass/Vol] 0.2 mg/dL Normal 0.2-1.0 [facility] Comment on above: Performed By: #### Nydia ELLER CMP ####[facility] Ubszbaqcat0256[address] [place], [place] [address]Dr. Nahed Yañez Calcium [Mass/Vol] 9.5 mg/dL Normal 8.5-10.1 [facility] Comment on above: Performed By: ###Daniela ELLER CMP ####[facility] Okxlgbdzor6069[address] [place], [place] [address]Dr. Nahed Yañez Chloride [Moles/Vol] 105 mmol/L Normal 98-107 The [facility] Comment on above: Performed By: #### Nydia ELLER CMP ####[facility] Zmcrusvctm30[address] [place], [place] [address]Dr. Nahed Yañez CO2 [Moles/Vol] 27.9 mmol/L Normal 21.0-32.0 [facility] Comment on above: Performed By: ###Daniela ELLER CMP ####[facility] Pespdajjfi3754[address] [place], [place] [address]Dr. Nahed Yañez Creatinine [Mass/Vol] 1.08 mg/dL Critically high 0.55-1.02 [facility] Comment on above: Performed By: #### Nydia ELLER CMP ####[facility] Lhbpnhfhzk[address] [place], [place] [address]Dr. Nahed Yañez EGFR-AF [place]LANDER >60 Normal >=60 [facility] Comment on above: Performed By: #### Nydia ELLER CMP ####[facility] Rvyspjhchn5436 [place] [address]Dr. Nahed Yañez EGFR-NON AF [place]ER 52 mL/min/1.73m2 Critically low >=60 [facility] Comment on above: Performed By: #### Nydia ELLER, CMP ####[facility] Xaiqlwrdjr3567[address] [place], [place] [address]Dr. Nahed Yañez Globulin (S) [Mass/Vol] 3.7 g/dL Normal [facility] Comment on above: Performed By: #### Nydia ELLER, CMP ####[facility] Wxbecmyuke7724[address] [place], [place] [address]Dr. Nahed Yañez Glucose [Mass/Vol] 182 mg/dL Critically high 74-106 [facility] Comment on above: Performed By: #### Nydia ELLER CMP ####[facility] Lgnpjynxgu1589[address] [place], [place] [address]Dr. Nahed Yañez Potassium [Moles/Vol] 3.9 mmol/L Normal 3.5-5.1 [facility] Comment on above: Performed By: #### Nydia ELLER CMP ####[facility] Xeztcouyew[address] [place], [place] [address]Dr. Nahed Yañez Protein [Mass/Vol] 5.9 g/dL Critically low 6.4-8.2 [facility] Comment on above: Performed By: #### Nydia ELLER CMP ####[facility] Letwzdryrn274[address] [place], [place] [address]Dr. Nahed Yañez Sodium [Moles/Vol] 141 mmol/L Normal 136-145 [facility] Comment on above: Performed By: #### Nydia ELLER, CMP ####[facility] Atzhdyrkmk4860 [place] [address]Dr. Nahed Yañez Urea nitrogen [Mass/Vol] 20.0 mg/dL Critically high 7.0-18.0 [facility] Comment on above: Performed By: #### Nydia ELLER, CMP ####[facility] Sgyynhurrc1308[address] [place], [place] [address]Dr. Nahed Yañez Urea nitrogen/Creatinine [Mass ratio] 18.5 mg/mg Normal [facility] Comment on above: Performed By: #### T RAFITA, CMP ####[facility] Lpivmvitwx4547 [place] [id number]. Nahed Yañez THEOPHYLLINEon 08-23-2022 THEOPHYLLINE 22.9 ug/mL Critically high 10.0-20.0 [facility] Comment on above: Performed By: #### Nydia ELLER, CMP ####[facility] Xysazhgcnx0434[address] [place], [place] [address]Dr. Nahed Yañez CBC AUTO DIFFon 08-22-2022 BASO # 0.0 103/ul Normal 0.0-0.1 [facility] Comment on above: Performed By: #### C BC ####[facility] Jrnyaorfms8205[address] [place], [place] [address]Dr. Nahed Yañez Basophils/100 WBC (Bld) 0.1 % Critically low 0.2-2.0 [facility] Comment on above: Performed By: #### C BC ####[facility] Teibehiidr0955[address] [place], [place] [address]DrShaun Yañez EO # 0.0 103/ul Normal 0.0-0.7 [facility] Comment on above: Performed By: #### C BC ####[facility] Osazlpbrqp6578[address] [place], [place] [address]Dr. Nahed Yañez Eosinophils/100 WBC (Bld) 0.0 % Critically low 0.9-7.0 [facility] Comment on above: Performed By: #### C BC ####[facility] Qrelmxzzai5487[address] [place], [place] [address]Dr. Nahed Yañez Erythrocyte distribution width (RBC) [Ratio] 15.1 % Critically high 11.0-15.0 [facility] Comment on above: Performed By: #### C BC ####[facility] Mbdfpvzuvt904[address] [place], [place] [address]DrShaun Yañez Hematocrit (Bld) [Volume fraction] 31.4 % Critically low 36.0-48.0 [facility] Comment on above: Performed By: #### C BC ####[facility] Grzmxyjmcj0024[address] [place], [place] [address]Dr. Nahed Yañez Hemoglobin (Bld) [Mass/Vol] 10.2 g/dL Critically low 12.0-16.0 The [facility] Comment on above: Performed By: #### C BC ####[facility] Txxoueigcu0314 [place] [address]DrShaun Yañez IG # 0.08 10e3/ul Critically high 0.00-0.03 [facility] Comment on above: Performed By: #### C BC ####[facility] Cydvpqgnow5186[address] [place], [place] [address]DrShaun Yañez IG % 0.6 % Critically high 0.0-0.5 [facility] Comment on above: Performed By: #### C BC ####[facility] Mrrqwmhobh889[address] [place], [place] [address]DrShaun Yañez LYMPH # 0.9 103/ul Critically low 1.2-3.8 [facility] Comment on above: Performed By: #### C BC ####[facility] Sibecwzpmw578[address] [place], [place] [address]DrShaun Yañez Lymphocytes/100 WBC (Bld) 6.1 % Critically low 20.5-60.0 [facility] Comment on above: Performed By: #### C BC ####[facility] Ciltbmcesa3720[address] [place], [place] [address]DrShaun Yañez MANUAL DIFF REQ NO Normal [facility] Comment on above: Performed By: #### C BC ####[facility] Fevnltyzyo5469[address] [place], [place] [address]DrShaun Yañez MCH (RBC) [Entitic mass] 28.3 pg Normal 26.7-34.0 [facility] Comment on above: Performed By: #### C BC ####[facility] Idnvinpwpk7777[address] [place], [place] [address]DrShaun Yañez MCHC (RBC) [Mass/Vol] 32.5 g/dL Normal 29.9-35.2 [facility] Comment on above: Performed By: #### C BC ####[facility] Npzcnfrban015[address] [place], [place] [address]DrShaun Yañez MCV (RBC) [Entitic vol] 87.0 fL Normal 81.0-99.0 [facility] Comment on above: Performed By: #### C BC ####[facility] Rvlnwwcekq7158[address] [place], [place] [address]DrhSaun Yañez MONO # 0.7 103/ul Normal 0.3-0.8 [facility] Comment on above: Performed By: #### C BC ####[facility] Utmlwkpiqj048[address] [place], [place] [address]DrShaun Nahed Otilio Monocytes/100 WBC (Bld) 5.1 % Normal 1.7-12.0 [facility] Comment on above: Performed By: #### C BC ####[facility] Zvpowriefk9949[address] [place], [place] [address]DrShaun Nahed Yañez NEUT # 12.2 103/ul Critically high 1.4-6.5 [facility] Comment on above: Performed By: #### C BC ####[facility] Xnumdghoiw393[address] [place], [place] [address]DrShaun Nahed Yañez Neutrophils/100 WBC (Bld) 88.1 % Critically high 43.0-75.0 The [facility] Comment on above: Performed By: #### C BC ####[facility] Xcwdbtxgly7117[address] [place], [place] [address]DrShaun Nahed Yañez Platelet mean volume (Bld) [Entitic vol] 10.2 fL Normal 9.5-13.5 The [facility] Comment on above: Performed By: #### C BC ####[facility] Oowmfyvjgd7[address] [place], [place] [address]DrShaun Nahed Otilio PLT 271 103/ul Normal 150-450 [facility] Comment on above: Performed By: #### C BC ####[facility] Nlwakjbiwu[address] [place], [place] [address]DrShaun Houstonashley Otilio RBC 3.61 106/ul Critically low 4.20-5.40 The [facility] Comment on above: Performed By: #### C BC ####[facility] Aivgkptuwv[address] [place], [place] [address]Dr. Nahed Yañez WBC 13.9 103/ul Critically high 4.0-11.0 [facility] Comment on above: Performed By: #### C BC ####[facility] Oweeopzmcg9619 [place] [address]Dr. Nahed Yañez CULTURE URINEon 08-22-2022 CULTURE URINE Culture Observations : LIGHT GROWTH OF MIXED GENITAL MIGUEL. NO POTENTIAL PATHOGENS SEEN. Normal [facility] Comment on above: Performed By: #### U RCX ####[facility] Izyvinvpyx2630 [place] [address]Dr. Nahed Yañez POINT OF CARE GLUCOSEon 08-12 Glucose [Mass/Vol] 252 mg/dL Critically high 74-106 [facility] Comment on above: Performed By: #### P OCGLUC ####[facility] Nmhnpimucz7668 [place] [address]Dr. Nahed Yañez Glucose [Mass/Vol] 293 mg/dL Critically high 74-106 [facility] Comment on above: Performed By: #### P OCGLUC ####[facility] Gjrntxpnqy2340 [place] [address]Dr. Nahed Yañez Glucose [Mass/Vol] 292 mg/dL Critically high -106 [facility] Comment on above: Performed By: #### P OCGLUC ####[facility] Xcfevgunzt6502 [place] [address]Dr. Nahed Yañez PROF 14(COMP METB)on 023 Albumin [Mass/Vol] 2.1 g/dL Critically low 3.4-5.0 [facility] Comment on above: Performed By: #### C MP ####[facility] Mfapyuikqk3461 [place] [address]Dr. Nahed Yañez Albumin/Globulin [Mass ratio] 0.5 {ratio} Normal [facility] Comment on above: Performed By: #### C MP ####[facility] Dcooyimegw2936 [place] [address]Dr. Nahed Yañez ALP [Catalytic activity/Vol] 92 U/L Normal 46-116 [facility] Comment on above: Performed By: #### C MP ####[facility] Jdgpuawgbb4517 [place] [id number]. Nahed Yañez ALT [Catalytic activity/Vol] 19 U/L Normal 14-59 The [facility] Comment on above: Performed By: #### C MP ####[facility] Fpqyutrtgu5790 [place] [phone]. Nahed Yañez Anion gap [Moles/Vol] 15.9 mmol/L Normal Th e [facility] Comment on above: Performed By: #### C MP ####[facility] Xymmmnizpl5982 [place] [phone]. Nahed Yañez AST [Catalytic activity/Vol] 8 U/L Critically low 15-37 [facility] Comment on above: Performed By: #### C MP ####[facility] Jxhkxqkeal1889 [place] [address]Dr. Nahed Yañez Bilirubin [Mass/Vol] 0.3 mg/dL Normal 0.2-1.0 The [facility] Comment on above: Performed By: #### C MP ####[facility] Vpfcfnhptf8648 [place] [address]Dr. Nahed Yañez Calcium [Mass/Vol] 9.4 mg/dL Normal 8.5-10.1 [facility] Comment on above: Performed By: #### C MP ####[facility] Itawetqeee3551 [place] [phone]. Nahed Yañez Chloride [Moles/Vol] 101 mmol/L Normal 98-107 The [facility] Comment on above: Performed By: #### C MP ####[facility] Mvfcmcbotw8546 [place] [phone]. Nahed Yañez CO2 [Moles/Vol] 22.5 mmol/L Normal 21.0-32.0 [facility] Comment on above: Performed By: #### C MP ####[facility] Mkooejytuf6041 [place] [address]Dr. Nahed Yañez Creatinine [Mass/Vol] 1.16 mg/dL Critically high 0.55-1.02 [facility] Comment on above: Performed By: #### C MP ####[facility] Iolhjrvmcj8073 [place] [phone]. Nahed Yañez EGFR-AF [place]ER 58 mL/min/1.73m2 Critically low >=60 [facility] Comment on above: Performed By: #### C MP ####[facility] Usiufdheag4017 [place] [phone]. Nahed Yañez EGFR-NON AF [place] 47 mL/min/1.73m2 Critically low >=60 [facility] Comment on above: Performed By: #### C MP ####[facility] Pcmironepz1693 [place] [phone]. Nahed Yañez Globulin (S) [Mass/Vol] 4.2 g/dL Normal [facility] Comment on above: Performed By: #### C MP ####[facility] Flgmfcjjja9223 [place] [address]Dr. Nahed Yañez Glucose [Mass/Vol] 409 mg/dL Critically high 74-106 [facility] Comment on above: Performed By: #### C MP ####[facility] Elulxmhueg7543 [place] [phone]. Nahed Yañez Potassium [Moles/Vol] 3.4 mmol/L Critically low 3.5-5.1 [facility] Comment on above: Performed By: #### C MP ####[facility] Rvwdgppytp0956 [place] [phone]. Nahed Yañez Protein [Mass/Vol] 6.3 g/dL Critically low 6.4-8.2 [facility] Comment on above: Performed By: #### C MP ####[facility] Jkghehmhcq2232 [place] [phone]. Nahed Yañez Sodium [Moles/Vol] 136 mmol/L Normal 136-145 [facility] Comment on above: Performed By: #### C MP ####[facility] Xydfcxzxap3519 [place] [phone]. Nahed Yañez Urea nitrogen [Mass/Vol] 16.0 mg/dL Normal 7.0-18.0 [facility] Comment on above: Performed By: #### C MP ####[facility] Rddwjfdmbo[address] [place], [place] [address]Dr. Nahed Yañez Urea nitrogen/Creatinine [Mass ratio] 13.8 mg/mg Normal The [facility] Comment on above: Performed By: #### C MP ####[facility] Lltrezoayj30[address] [place], [place] [address]Dr. Nahed Yañez THEOPHYLLINEon 08-22-2022 THEOPHYLLINE 13.4 ug/mL Normal 10.0-20.0 The [facility] Comment on above: Performed By: #### T RAFITA ####[facility] Fcnduzmsom8[address] [place], [place] [address]Dr. Nahed Yañez UA RANDOM W/MICROSCOPICon BACTERIA NONE SEEN Normal NONE SEEN The [facility] Comment on above: Performed By: #### U AMIC ####[facility] Nbepnvlkwh174[address] [place], [place] [address]Dr. Nahed Yañez Bilirubin Ql (U) Negative Normal NEGATIVE [facility] Comment on above: Performed By: #### U AMIC ####[facility] Cuodmskjoj6345[address] [place], [place] [address]Dr. Nahed Yañez CAST NONE SEEN Normal NONE SEEN The [facility] Comment on above: Performed By: #### U AMIC ####[facility] Ainquegyep3455[address] [place], [place] [address]Dr. Nahed Yañez Clarity (U) CLEAR Normal CLEAR The [facility] Comment on above: Performed By: #### U AMIC ####[facility] Vkkesoomoi15[address] [place], [place] [address]Dr. Nahed Yañez Color (U) LT. YELLOW Normal YELLOW The [facility] Comment on above: Performed By: #### U AMIC ####[facility] Dogejuinrf9420[address] [place], [place] [address]Dr. Nahed Yañez Crystals LM Nom (Urine sed) NONE SEEN Normal NONE SEEN The [facility] Comment on above: Performed By: #### U AMIC ####[facility] Reocdgzkvo2813[address] [place], [place] [address]Dr. Nahed Yañez Epithelial cells LM Ql (Urine sed) RARE Normal NONE SEEN /RARE The [facility] Comment on above: Performed By: #### U AMIC ####[facility] Ftbiurxvuy5277 [place] [address]Dr. Nahed Yañez Glucose Ql (U) 100 mg/dl Abnormal NEGATIVE [facility] Comment on above: Performed By: #### U AMIC ####[facility] Gemfbrnnrt6806 [place] [address]Dr. Nahed Yañez Hemoglobin Ql (U) Negative Normal NEGATIVE The [facility] Comment on above: Performed By: #### U AMIC ####[facility] Pvmaibcwhy6533 [place] [address]Dr. Nahed Yañez Ketones Ql (U) Negative Normal NEGATIVE [facility] Comment on above: Performed By: #### U AMIC ####[facility] Rcarxpiiao0247 [place] [address]Dr. Nahed Yañez LEUKOCYTES Negative Normal NEGATIVE The [facility] Comment on above: Performed By: #### U AMIC ####[facility] Vawjjhbccp[address] [place], [place] [address]Dr. Nahed Yañez MUCOUS NONE SEEN Normal NONE SEEN The [facility] Comment on above: Performed By: #### U AMIC ####[facility] Ryllywetil[address] [place], [place] [address]Dr. Nahed Yañez Nitrite Ql (U) Negative Normal NEGATIVE [facility] Comment on above: Performed By: #### U AMIC ####[facility] [address]cvwxkd[address] [place] [address]Dr. Nahed Yañez pH (U) 5.5 [pH] Normal 5-9 [facility] Comment on above: Performed By: #### U AMIC ####[facility] Nwzvrysmup[address] [place] [address]Dr. Nahed Yañez RBC NONE SEEN Abnormal 0-2 [facility] Comment on above: Performed By: #### U AMIC ####[facility] Qbruuwelyg7[address] [place] [address]Dr. Rosemarieashley Yañez SPEC GRAVITY 1.020 Normal 1.005-<=1.02 5 [facility] Comment on above: Performed By: #### U AMIC ####[facility] Bjdiisyzhz23[address] [place] [address]Dr. Nahed Yañez UA PROTEIN Negative Normal NEGATIVE/ TRACE [facility] Comment on above: Performed By: #### U AMIC ####[facility] Fjvxinaaok[address] [place] [address]Dr. Nahed Yañez Urobilinogen Qn (U) 0.2 {Alem'U}/dL Normal 0.2 - 1. 0 [facility] Comment on above: Performed By: #### U AMIC ####[facility] Ivngrwbqhf9[address] [place] [address]Dr. Nahed Yañez WBC NONE SEEN Normal NONE SEEN [facility] Comment on above: Performed By: #### U AMIC ####[facility] Cccbpeoqgn[address] [place], [place] [address]Dr. Nahed Yañez BLOOD GASES BTYon 08-21-2022 02 MODE ROOM AIR Normal [facility] Comment on above: Performed By: #### A BG ####[facility] Xybyrphogk[address] [place], [place] [address]Dr. Nahed Yañez ALLENS TEST Positive Normal [facility] Comment on above: Performed By: #### A BG ####[facility] Txaqgefopz[address] [place], [place] [address]Dr. Nahed Yañez Base excess Calc (Bld) [Moles/Vol] 3.2 mmol/L Critically high -2.0-2.0 [facility] Comment on above: Performed By: #### A BG ####[facility] Puzaqkxmsb[address] [place], [place] [address]Dr. Nahed Yañez BIPAP PRESSURE Normal [facility] Comment on above: Performed By: #### A BG ####[facility] Lbmqpcdywy1304[address] [place], [place] [address]Dr. Nahed Yañez CPAP Normal [facility] Comment on above: Performed By: #### A BG ####[facility] Gmdsmfawcs[address] [place], [place] [address]Dr. Nahed Yañez FIO2 Normal [facility] Comment on above: Performed By: #### A BG ####[facility] Vwqubcoksl9[address] [place] [address]Dr. Nahed Yañez HCO3 (Bld) [Moles/Vol] 26.8 mmol/L Critically high 22.0-26 .0 [facility] Comment on above: Performed By: #### A BG ####[facility] Qxcnrlvsqe74[address] [place] [address]Dr. Nahed Yañez LPM Normal [facility] Comment on above: Performed By: #### A BG ####[facility] Thxxbcthyv197[address] [place], [place] [address]Dr. Nahed Yañez MINUTE VOLUME Normal [facility] Comment on above: Performed By: #### A BG ####[facility] Rdmmibzefv985[address] [place], [place] [address]Dr. Nahed Yañez Oxygen (Bld) [Partial pressure] 55.1 mm[Hg] Critically low 80.0-100.0 [facility] Comment on above: Performed By: #### A BG ####[facility] Dkerypvvmq755[address] [place], [place] [address]Dr. Nahed Yañez Oxygen saturation in Blood 90.2 % Critically low 95.0-100.0 [facility] Comment on above: Performed By: #### A BG ####[facility] Rwzpvblwjp[address] [place], [place] [address]Dr. Nahed Yañez PCO2 36.7 mmHg Normal 35.0-45.0 [facility] Comment on above: Performed By: #### A BG ####[facility] Vtcqvtryeg75[address] [place], [place] [address]Dr. Nahed Yañez PEEP Normal [facility] Comment on above: Performed By: #### A BG ####[facility] Dihbstjdss85[address] [place], [place] [address]Dr. Nahed Yañez pH (Bld) 7.472 [pH] Critically high 7.350-7.450 [facility] Comment on above: Performed By: #### A BG ####[facility] Jpwlatrund3822[address] [place], [place] [address]Dr. Nahed Yañez PIP Normal [facility] Comment on above: Performed By: #### A BG ####[facility] Nlerhgwopm22[address] [place] [address]Dr. Nahed Yañez PS [facility] Comment on above: Performed By: #### A BG ####[facility] Ftkadyqgep7[address] [place] [address]Dr. Nahed Yañez PUNCTURE SITE LR Normal [facility] Comment on above: Performed By: #### A BG ####[facility] Qyvpybqadz98[address] [place] [address]Dr. Nahed Yañez RATE [facility] Comment on above: Performed By: #### A BG ####[facility] Eysaomtkay[address] [place] [address]Dr. Nahed Yañez VENT MODE [facility] Comment on above: Performed By: #### A BG ####[facility] Yrebnpexju95[address] [place], [place] [address]Dr. Nahed Yañez VT [facility] Comment on above: Performed By: #### A BG ####[facility] Fyssugiofe[address] [place], [place] [address]Dr. Nahed Yañez BNPon 08-21-2022 Natriuretic peptide B (Bld) [Mass/Vol] 131.0 pg/mL Normal <=900.0 [facility] Comment on above: Performed By: #### B IMPORT/EXPORT ANALYST ####[facility] Nzwmxhrtjk[address] [place], [place] [address]Dr. Nahed Yañez CARDIAC FRANCISCO 3-6on 3 CK [Catalytic activity/Vol] 17 U/L Critically low 26-192 [facility] Comment on above: Performed By: #### C MREP ####[facility] Sbkksxtbei[address] [place] [address]Dr. Nahed Yañez CK.MB [Mass/Vol] ng/mL Normal <=3.60 [facility] Comment on above: Performed By: #### C MREP ####[facility] Rgmjahmjst3814 [place] [address]Dr. Nahed Yañez HSTROP 25.1 pg/mL Normal 4.0-51.3 [facility] Comment on above: Result Comment: CUT- OFF POINTS HAVE BEEN ESTABLISHED BASED ON THE FOURTH UNIVERSAL DEFINITIONS OF MYOCARDIALINFARCTION. THE UPPER REFERENCE LIMIT (URL) OF TROPONIN, DEFINED THE 99TH PERCENTILE OFcTnI DISTRIBUTION IN A REFERENCE POPULATION, HAS BEEN CONFIRMED THE DECISION THRESHOLDFOR MT DIAGNOSIS. Performed By: #### C MREP ####[facility] S[address]thxpstco[address] [place] [address]Dr. Nahed Yañez CARDIAC FRANCISCO ADMITon 023 CK [Catalytic activity/Vol] 39 U/L Normal 26-192 [facility] Comment on above: Performed By: #### B RENZO, CMADM ####[facility] Crxtuxepjx[address] [place] [address]Dr. Nahed Yañez CK.MB [Mass/Vol] ng/mL Normal <=3.60 [facility] Comment on above: Performed By: #### B RENZO, CMADM ####[facility] Btyqfrzkde47[address] [place] [address]Dr. Nahed Yañez HSTROP 24.4 pg/mL Normal 4.0-51.3 [facility] Comment on above: Result Comment: CUT- OFF POINTS HAVE BEEN ESTABLISHED BASED ON THE FOURTH UNIVERSAL DEFINITIONS OF MYOCARDIALINFARCTION. THE UPPER REFERENCE LIMIT (URL) OF TROPONIN, DEFINED THE 99TH PERCENTILE OFcTnI DISTRIBUTION IN A REFERENCE POPULATION, HAS BEEN CONFIRMED THE DECISION THRESHOLDFOR MT DIAGNOSIS. Performed By: #### B RENZO, CMADM ####[facility] Ccuvlooshx43[address] [place] [address]Dr. Nahed Yañez ANDRE 48 ng/mL Normal 9-82 [facility] Comment on above: Performed By: #### B RENZO, CMADM ####[facility] Zglfqqezpv[address] [place] [id number]. Nahed Yañez CBC AUTO DIFFon 08-21-2022 BASO # 0.0 103/ul Normal 0.0-0.1 [facility] Comment on above: Performed By: #### C BC ####[facility] Wevrncufpv4064 [place] [address]Dr. Nahed Yañez Basophils/100 WBC (Bld) 0.2 % Normal 0.2-2.0 [facility] Comment on above: Performed By: #### C BC ####[facility] Usvlluxogf9319 [place] [address]Dr. Rosemarieashley Yañez EO # 0.3 103/ul Normal 0.0-0.7 [facility] Comment on above: Performed By: #### C BC ####[facility] Xsncyngxkn8204[address] [place], [place] [address]Dr. Nahed Yañez Eosinophils/100 WBC (Bld) 1.5 % Normal 0.9-7.0 [facility] Comment on above: Performed By: #### C BC ####[facility] Ojvhnonukt9[address] [place], [place] [address]Dr. Nahed Yañez Erythrocyte distribution width (RBC) [Ratio] 15.0 % Normal 11.0-15.0 [facility] Comment on above: Performed By: #### C BC ####[facility] Qmhuhkiipm17[address] [place], [place] [address]Dr. Nahed Yañez Hematocrit (Bld) [Volume fraction] 41.4 % Normal 36.0-48.0 [facility] Comment on above: Performed By: #### C BC ####[facility] Nrwvkmhfdj[address] [place], [place] [address]Dr. Rosemarieashley Yañez Hemoglobin (Bld) [Mass/Vol] 13.5 g/dL Normal 12.0-16.0 [facility] Comment on above: Performed By: #### C BC ####[facility] Yiovwuuxwg13[address] [place], [place] [address]Dr. Nahed Yañez IG # 0.18 10e3/ul Critically high 0.00-0.03 [facility] Comment on above: Performed By: #### C BC ####[facility] Meqzhzmadj71[address] [place], [place] [address]Dr. Nahed Yañez IG % 1.0 % Critically high 0.0-0.5 [facility] Comment on above: Performed By: #### C BC ####[facility] Lwdaxixjsg0427[address] [place], [place] [address]Dr. Nahed Yañez LYMPH # 2.5 103/ul Normal 1.2-3.8 [facility] Comment on above: Performed By: #### C BC ####[facility] Fphyefdbxm2199 [place] [address]Dr. Nahed Yañez Lymphocytes/100 WBC (Bld) 14.0 % Critically low 20.5-60.0 [facility] Comment on above: Performed By: #### C BC ####[facility] Hdgexusceg3243 [place] [address]Dr. Nahed Yañez MANUAL DIFF REQ NO Normal [facility] Comment on above: Performed By: #### C BC ####[facility] Ulwjhessur8314 [place] [address]Dr. Nahed Yañez MCH (RBC) [Entitic mass] 28.5 pg Normal 26.7-34.0 [facility] Comment on above: Performed By: #### C BC ####[facility] Dxtahhlrfx9[address] [place], [place] [address]Dr. Nahed Yañez MCHC (RBC) [Mass/Vol] 32.6 g/dL Normal 29.9-35.2 [facility] Comment on above: Performed By: #### C BC ####[facility] Xopknzrpfu1667[address] [place], [place] [address]DrShaun Yañez MCV (RBC) [Entitic vol] 87.3 fL Normal 81.0-99.0 [facility] Comment on above: Performed By: #### C BC ####[facility] Qbqdnvmkbu4[address] [place], [place] [address]Dr. Nahed Yañez MONO # 1.2 103/ul Critically high 0.3-0.8 [facility] Comment on above: Performed By: #### C BC ####[facility] Uzqjipaodc6[address] [place], [place] [address]Dr. Nahed Yañez Monocytes/100 WBC (Bld) 6.8 % Normal 1.7-12.0 [facility] Comment on above: Performed By: #### C BC ####[facility] Okyslameps3960[address] [place], [place] [address]Dr. Nahed Yañez NEUT # 13.8 103/ul Critically high 1.4-6.5 [facility] Comment on above: Performed By: #### C BC ####[facility] Bqpjjiqnlx8[address] [place] [address]Dr. Nahed Yañez Neutrophils/100 WBC (Bld) 76.5 % Critically high 43.0-75.0 [facility] Comment on above: Performed By: #### C BC ####[facility] Hsintnmsyl11[address] [place] [address]Dr. Nahed Yañez Platelet mean volume (Bld) [Entitic vol] 10.5 fL Normal 9.5-13.5 [facility] Comment on above: Performed By: #### C BC ####[facility] Ocpoxbxhos[address] [place], [place] [address]Dr. Nahed Yañez PLT 319 103/ul Normal 150-450 [facility] Comment on above: Performed By: #### C BC ####[facility] Sdnxwuozzf0046[address] [place], [place] [address]Dr. Rosemarieashley Otilio RBC 4.74 106/ul Normal 4.20-5.40 [facility] Comment on above: Performed By: #### C BC ####[facility] Ocgucdiglf265[address] [place], [place] [address]Dr. Nahed Yañez WBC 18.0 103/ul Critically high 4.0-11.0 [facility] Comment on above: Performed By: #### C BC ####[facility] Ihevodbwpp8835[address] [place], [place] [address]Dr. Rosemarieashley Yañez CULTURE BLOODon 08-21-2022 Microscopic examination of blood, culture Culture Observations: NO GROWTH AT 5 DAYS. Normal [facility] Comment on above: Performed By: #### B LDCX2 ####[facility] Emjlgooild[address] [place], [place] [address]Dr. Nahed Yañez Microscopic examination of blood, culture Culture Observations: NO GROWTH AT 5 DAYS. Normal [facility] Comment on above: Performed By: #### B LDCX1 ####[facility] Ezftqlncnv5019[address] [place], [place] [address]DrShaun Yañez Covid-19 PCR (CVDTBH)on 08-12 SARS-CoV-2 (COVID-19) RNA MIRNA+probe Ql (Unsp spec) Not detected Normal NOT DETECTED [facility] Comment on above: Result Comment: When diagnostic [...] for this test is supported by the Motion Study Technician of Health and Human Service's declaration that [...] be used). Performed By: #### C VDTBH ####[facility] Jvrxfgtmhr39[address] [place], [place] [address]Dr. Nahed Yañez LACTATE/LACTIC ACIDon 2022 Lactate [Moles/Vol] 1.1 mmol/L Normal 0.4-2.0 [facility] Comment on above: Performed By: #### L ACT ####[facility] Lxrfredval9565[address] [place], [place] [address]Dr. Nahed Yañez Lactate [Moles/Vol] 2.4 mmol/L Critically high 0.4-2.0 [facility] Comment on above: Performed By: #### L ACT ####[facility] Cdhqqbdddz[address] [place], [place] [address]Dr. Nahed Yañez POINT OF CARE GLUCOSEon 08-12 Glucose [Mass/Vol] 453 mg/dL Critically high 74-106 [facility] Comment on above: Performed By: #### P OCGLUC ####[facility] Wunitmfyja01[address] [place], [place] [address]Dr. Nahed Yañez Glucose [Mass/Vol] 358 mg/dL Critically high 74-106 [facility] Comment on above: Performed By: #### P OCGLUC ####[facility] Bkmmgiimgm01[address] [place] [address]Dr. Nahed Yañez Glucose [Mass/Vol] 98 mg/dL Normal 74-106 [facility] Comment on above: Performed By: #### P OCGLUC ####[facility] Evqxcdaiuo6[address] [place] [address]Dr. Nahed Yañez PROF CHEM 8 (BAS METB)on Anion gap [Moles/Vol] 14.7 mmol/L Normal [facility] Comment on above: Performed By: #### B ERICK MULLER ####[facility] Jxtdlquczb[address] [place], [place] [address]Dr. Nahed Yañez Calcium [Mass/Vol] 9.6 mg/dL Normal 8.5-10.1 [facility] Comment on above: Performed By: #### B ERICK MULLER ####[facility] Tgqpqzoeux46[address] [place] [address]Dr. Nahed Yañez Chloride [Moles/Vol] 95 mmol/L Critically low 98-107 [facility] Comment on above: Performed By: #### B ERICK MULLER ####[facility] Xuglzakklg3265 [place] [address]Dr. Nahed Yañez CO2 [Moles/Vol] 25.2 mmol/L Normal 21.0-32.0 [facility] Comment on above: Performed By: #### B ERICK MULLER ####[facility] Dgbzdlotwh8893 [place] [address]Dr. Nahed Yañez Creatinine [Mass/Vol] 1.15 mg/dL Critically high 0.55-1.02 [facility] Comment on above: Performed By: #### ERICK Ordonez MP ####[facility] Nlrggcndvp50[address] [place] [address]Dr. Nahed Yañez EGFR-AF [place] 58 mL/min/1.73m2 Critically low >=60 [facility] Comment on above: Performed By: #### B MP, CMADM ####[facility] Vofldluxsd4[address] [place] [id number]. Rosemarieashley Otilio EGFR-NON AF [place] 48 mL/min/1.73m2 Critically low >=60 [facility] Comment on above: Performed By: #### B RENZO, CMADM ####[facility] Kqifjikffy[address] [place] [address]Dr. Nahed Yañez Glucose [Mass/Vol] 191 mg/dL Critically high 74-106 [facility] Comment on above: Performed By: #### B RENZO, CMADM ####[facility] Nenjrluzvy[address] [place] [address]Dr. Nahed Yañez Potassium [Moles/Vol] 3.9 mmol/L Normal 3.5-5.1 [facility] Comment on above: Performed By: #### B RENZO, CMADM ####[facility] Vlukbafnpt[address] [place] [address]Dr. Nahed Yañez Sodium [Moles/Vol] 131 mmol/L Critically low 136-145 [facility] Comment on above: Performed By: #### B RENZO, CMADM ####[facility] Dxkmwuzlnc7[address] [place] [address]Dr. Nahed Yañez Urea nitrogen [Mass/Vol] 15.0 mg/dL Normal 7.0-18.0 [facility] Comment on above: Performed By: #### B RENZO, CMADM ####[facility] Hhetjumbpm[address] [place] [address]Dr. Nahed Yañez Urea nitrogen/Creatinine [Mass ratio] 13.0 mg/mg Normal [facility] Comment on above: Performed By: #### B RENZO, CMADM ####[facility] Bittuprzba[address] [place] [address]Dr. Nahed Yañez XR CHEST 2 Von 08-21-2022 XR CHEST 2 V Normal [facility] Coding Summary.on 08-11-2022 Coding Summary. CD:[id number] W w+PGhlYWQ+CU9TCTPoD86 irNZoaN2bE6ZTGFqVIpkj NGVZHDkRXoXtxiJoPA9ys XNjZXJu IC8+WU1qXRBjZwnsyHZdq 1S5cEA3X10lgh9gTOeojZ W4XOJiFdEaurjkq3dkiXx 6IDcuNmluOyBt LHEudH86NRD8cQ96Oa14k HWmeMKqz0thwBt5AkEsGD ZlPIW0sOkfSVpjb2VgNQB sJ96sjOShe6B9 PRAmcWkvgVKhYhUdnUM8y V3fQHwaxbbvt9pguiuzXy p3iz06oNLjf0F4eOA7X1G izaC2WABdmCOp WqsddMKKoC9lghzgy6fap ddbBsTpGFBuRMf7EKg2CK OevXszOoKuCO73TPO8AVL ihgTjV5TaSQIw sVxjCuD0p8M9Ff5WL1URE tkgV4WLKYVSPMfxjIV+PC 40oe02Z8SfTrkjEgw9JDE pWLZ6aPJ1rJ4s GCGpFRtng8K8bAU4E5Mpn mZonr1cv5daURVlOVhlD5 1luVGfi4L8IQEsfQP5AUV oaBnaTdFzuI82 Oyc+KXMrxJmgr9HaHkrxp 8xlc7atoDe0FvoaOAOqnm DgdOwwMGI7y5DgUo9iHVR hwGT1gVE1vG1k XyVnFvS3KWzhO764BjVck YWaCrgmO86oT3VxkGD+PH MdIrh0WDSdnEqyUZ8oO1P hZGRpbmctbGVm jGfkRE7rOSPwjychHIWkm A1zFGTlN4q1JoYfDmW7ZQ xmP3FiKKKscfimMa82dY5 hZsPnAvD3KSlr P2TtduS2RWGlaMHcFKknY YC7G99zl3S1RTJxANRmEP M3vXC9sP5xvKjcudyscUS mdDsgdmVydGlj WSraLRsoP035KIZepStnH kNvZGluZyBEYXRlOiAgMD MvMzEvMjAyMzwvdGQ+PHR mGOB4jZqdHNVh yFTgBYirJt8jxDbfaOmrL Y9xVXYgfmcfXIUtzD9nUM YmiBNblPjhNL2cCQUmwot pb099XqQuVRI3 MNUvoUWgR2LexY3hPqZhM LDkQLUoX1SgrVAnDEwqA4 69TOzaBsN0PIFbbwDfM0J sLWFsaWduOiB0 t0V8Qz0Bq7RpmkxxO0Wkl GIvKkNmZgpbPDa9A2LjEm wvdHI+RR39UAFoBX06WOd 8TZW6xPjlAEzd SUAkL8HmdL1cCtYsNBQxV GRkOyc+PHRhYmxlIHdpZH RoPScxMDAlJyBzdHlsZT0 eNq7qVYFcEMCc dBlfxJKyOeZlp0lfRAWkP QriKK2ieYbzB1EvvPM1LU Zdd8g3Ya98C36rN1EiiNJ +HNWziIL8zRH3 aA5lEyLpVcO7XQgeX004G vIteFWfPqyrj8wbk1rzzF p2TqG6AYWvamYizYnvQCM 5c6YpMe64F36r IHdpZHRoPSIxNSUiIHZhb Grsnx0xtH9aDo0+PGNvbC N9yDC4eR9gZkCpZzM0LBc xQ175EePpjGDk Vqobc8hnk3fxwXl0BiMfJ HIcbwGccGeyABW9x2ZoYe 77W6LhsHtyf1ClRou5fp4 6rRIfl3R2qLF5 Y5RdINEksfrjgOIbaDwxQ O4vCLJqiojpJEZdaW4eNB QjS5y8QqNzFmH5LEjiU7V hwsN0FBQtyENo IHScxIABnJ0faoiqy0pdr qoyGzNwKNWtLVf1HKr8OE FyvMqwFbKnTHJ8XlM0BGA 1pUHayQ0hrMal madmmR8eQhb+IYH0jDGps URVSH3nXospmTJ+PHRkIH M6zUbfSNwzSQWboG7yOKG sW3e4KyQkUlB6 DIycQ2BikoF7UQMchJHnR ZHsuHLKbK0wuzsrq1duzb jfAhYtKIKpIMw9SNd7HCU saWduOiBsZWZ0 UhN0KPM6pHXajT7saPzqm wzaqH0hCfx+QmlydGggRG U9PGz3J0GbGfe9VHSxdMa mII2smZRaKUsv Ba1vpUcftXhyHN6jRFGjb htft538NyXlr3ngTHTmyP YjORtpPSU3X33ce5S3FGJ fRRKpZJR0eOV4 yU5bkEsyclivwRHioAxtf gIslWlmLGcoIBnyU670HQ VyiWthNxRjXYo4H6HlDdw 9QOJtpZtzKT5a eRFpJDijOu7ubVoxeGbhI S1bOTHmxgnfr430IyGpn3 kyRJRwzXMzUJmjDMO8R38 ie9K5CBMwSSFm EJN9fSJ5iG6gtKxcxbaxa GVmdDsgdmVydGljYWwtYW kxW660EENxzUrhWsIhlXd 9W4KlJuf0QDKj hSbfNN2gkPOkHXjbJu7am GhmhGbjMN4fWICwjisrw2 61UbOxl1ulEFGlgRWzRMk vROV0R61mo9X7 CGHkSXQnFCL6eJS5nA6pt GlnbjogbGVmdDsgdmVydG gxCCklLYggZ279QWEbhOo nPlBhdGllbnQg PCbuBOs5K5WcGosnrLG+P U89ZKMsWC50sPOfnGMie4 wqlQu2YbJyPMKiOEY0hRm kAIxti3ZkPWXn H69ooRBde0A4UDXyqNjlb VKbZpEsdZC1gX9hLLeqzt uxi4hubjcvJmqeq8jhzs5 4vH17Q77fMMyz ZHRoPSIzMCUiIHZhbGlnb y6txA4yJr2+NTBqvNV5nU K8lR0vCWPpLqR1XNriY42 9InRvcCIvPjxj v5qdl9idaUv8SrH3XGFqt cOlkJvnMDL0h3JkVb80P3 9sIHdpZHRoPSIyMCUiIHZ uyOpcjm7ceW1r Ii8+SIFbzPF9vND4uH9iI cZhPhO9QTqoN526DjEjzD RaKykzI17hE1QufFJ+PHR jUna1ATWbjNzs YF4jnPUfIYzhUw3eAOY5S rXbOeSyNIdzX0CjTILugm upbablxXA3TSClRFUieG8 5Uk6lrRlsQLRr oFVTaE6rynvjm9exiicuZ sWaFBDkRCf2VDq4LZUnbD gvMjHeOHO9YkI9HUL4uEH gqO8hfPtzyvep fD8tM2PmFWSbhjxqEt00o R4tGaXaYqW9DDtrRea+TU NXXY8ALFOOSZQAJVF1F2Y jQok3ZXYdfYai EU2iyDKxSFjvPf7dtYfnq TvyLT1dHRZrokhkWJCgwH 2pHUPkjEDymBxrSU8qVHJ ojssaa484CvIw NJK5KWQzkQWoF1UwlH0jF sGrMKHfQJIkS0OarQMgWI ziW076SYqbLxA7NVZmoiW hX5VyRGFsgWft LeS0h5T3Qw5rAY5mVJ0vQ AVsHG52QH65qTLve2G4sB Q2Z3XkKCTuyuhtoojwyRW 9ZXXgJUCrbY45 oRMgWLxcMi0on3L1g607Y KFePNYxpO23Ln6nlEjjRZ DexCPDgT4cjldbu3rcxqx gIzAwMDAwMDt0 REg8WCRqzQfjAhPdLON5J xC6QNJ5eSSduD9pkJezpu wwfR5iYzx+NjEgWWVhcnM 2G6BfNwy3WPZh qLduPB5pnJXmZBjaGg7op DqqvFusJU8hAXMhjkptGT NpfL9zBDNtiOGaeLfjAQ1 dGTTeskudj183 NkOtRVX8UMDokKOxJ9Wnz Q8aCvXcXHAdHPLwO2RkzT DsBDguW783VBjdFjY8EFB lhxHlB1DePLJg jSkbAfZ1w1R3Qb1AOL5ml FC6G0XxSek3GGDhzTjhDT 3glAJoQXjrSk3apXcdcNx jES9eOZJzfhgx STCefV0lJSWhkWGajYbyE T7jSYBgwcwfu906MbKdYT V8DEBvyEYoG7KayR0cPuB bDAWgUONxF9Fz iUFlXKvxG224UPqvGnG2C XQmnlJfN2DsWAKlpDtcQc F1t0C2Cf0MuHTaZ1YeS7r 4G4ScMiigyQJ+ DT53MKQtTA74dSUmwBLms 3uwdPx4VmIhKEClPSH3dH vrJBvqk1XmHRXtN44qwLI is2C5WZRdaGvh wLAuEoQbaUP0sC8bTXnvg rxde8nauwiwGswuh0mwnp 83eJ11J98kPCpsZDYvCRB zMCUiIHZhbGln so9vaC9mUj9+MIOtxTS6l EV4cT5hAaQdVlI5NZpwZ4 85UuRtmWAoQysff6sea4m tlZb2BnDqCLIf miDmrBfpPZH4l1SxBr19V 29sIHdpZHRoPSIyMCUiIH CvqQmsvo3nmW1aHy5+PC9 rh9qnkh62fH95 dHI+TKEgJHG1oWpnDBqoP JDgzD8cFOmuDsM3WOUnSw LlqJ08bPTaSGggJh9szUu yjJwpHK7hNEEd nxzwq169BdKpc1khTTVur GJcFSeaRMJ2S71zh4N8YJ NvJCOyAPM3xEN4uQ6ckDt nbjogbGVmdDsg zxOpkApnWVreSEhfJ865U JBwjYpkKnNxyADzH6bjvi IGQB8mUiuxmZX+PHRkIHN 0eWxlPSdwYWRk eS4eOEOsK5g1QcFxXeT6P ImcN3SrvvI3IWZloBSeSF XesJEOvC5ttvfhj7zqzfv gIzAwMDAwMDt0 UYq9ETZbuZjmWqKcPGF9U qK0BTJ6wOVfvD6buUomow jqcX3bOoc+RklOOjwvdGQ +OXDaCFA2rLne EGrvTDElqH1eOEWdK8z8O uMdGfJ5NEdiH3AcswR5KJ KmbBQsKDKnfAEVaM4yjtb yk9bcapiaElLd HKVtEHh9POd8QWUswQeuN yJtUBK3SiW3UVT4uTDsdP 9exUibxecphZ7lRjn+TVJ OOjwvdGQ+PHRk GYB1lUomSUlgCISpxG7lA CGxK1s1XzFgSmA4RWolK4 TontJ6GGNinFOxAOKmmLP JiT1vwtnwx5hl aaocSvYiKVNrOBv9KNy2M KAdoIlnBwFwWUM5VyR4LZ Y8hURwhV9thNrwkmurdJ7 wOyc+AUT6QVM3 OG37ZG26C8QnRcztqHZuq +PHRhYmxlIHdpZHRoPS zxELJqYjFmrAhfMR8xVp6 yZGVyLWNvbGxh cHNlOiBj (more content not included)... Normal [facility] Auto Diffon 08-09-2022 Basophils/100 WBC (Bld) 0.5 % Normal 0.0-2.0 [facility] Comment on above: Order Comment: Order Added by Discern Expert. Performed By: #### 2 247522, 3511853, 29829215, 2853797, 74748688, 97099386, 85111026 ####[address] [place] [address] Basophils/Leukocytes Auto (Bld) [Pure # fraction] 0.1 E9/L Normal 0.0-0.2 [facility] Comment on above: Order Comment: Order Added by Discern Expert. Performed By: #### 2 383290, 4827494, 59678704, 7937861, 39478979, 31312966, 35896834 ####[facility] [address] [place] [address] Eosinophils/100 WBC (Bld) 2.7 % Normal 0.0-8.0 [facility] Comment on above: Order Comment: Order Added by Discern Expert. Performed By: #### 2 001826, 7482159, 38963996, 8080076, 45386611, 85637940, 05987132 ####[facility] [address] [place] [address] Eosinophils/Leukocytes Auto (Bld) [Pure # fraction] 0.4 E9/L Normal 0.0-0.5 [facility] Comment on above: Order Comment: Order Added by Discern Expert. Performed By: #### 2 373003, 6863099, 99129567, 3523203, 78568511, 41479747, 55102513 ####[facility] [address] [place] [address] Lymphocytes/100 WBC (Bld) 12.8 % Low 14.0-50.0 [facility] Comment on above: Order Comment: Order Added by Discern Expert. Performed By: #### 2 039478, 8635071, 39510817, 4562299, 88666701, 15817698, 07534589 ####[facility] [address] [place] [address] Lymphocytes/Leukocytes Auto (Bld) [Pure # fraction] 2.1 E9/L Normal 1.0-4.0 [facility] Comment on above: Order Comment: Order Added by Discern Expert. Performed By: #### 2 736314, 6716986, 25845730, 5426192, 95413559, 17442802, 23874191 ####[address] [place] [address] Monocytes/100 WBC (Bld) 6.4 % Normal 4.0-14.0 [facility] Comment on above: Order Comment: Order Added by Refugio Expert. Performed By: #### 2 999516, 3747771, 57404773, 4004453, 38158745, 63546917, 42599165 ####[address] [place] [address] Monocytes/Leukocytes Auto (Bld) [Pure # fraction] 1.0 E9/L Normal 0.2-1.0 [facility] Comment on above: Order Comment: Order Added by Refugio Expert. Performed By: #### 2 160471, 0400396, 97980122, 5689452, 66207100, 98057817, 51753230 ####[facility] [address] [place] [address] Neutrophils/100 WBC (Bld) 77.6 % High 36.0-75.0 [facility] Comment on above: Order Comment: Order Added by Discern Expert. Performed By: #### 2 813361, 6888092, 12106896, 6480533, 29430622, 02954134, 30376370 ####[facility] [address] [place] [address] Neutrophils/Leukocytes Auto (Bld) [Pure # fraction] 12.6 E9/L High 2.0-7.5 [facility] Comment on above: Order Comment: Order Added by Discern Expert. Performed By: #### 2 019816, 5565772, 57844666, 2892906, 53749616, 26063454, 62261498 ####[facility] [address] [place] [address] BMPon 08-09-2022 Creatinine [Mass/Vol] 1.1 mg/dL Normal 0.5-1.3 [facility] Comment on above: Performed By: #### 2 974158, 4784604, 53215652, 5879918, 55117512, 90350327, 71051216 ####[facility] [address] [place] [address] Urea nitrogen [Mass/Vol] 18 mg/dL Normal 5-21 [facility] Comment on above: Performed By: #### 2 322346, 9812129, 41925976, 4317762, 04641410, 99085318, 24511198 ####[facility] [address] [place] [address] Urea nitrogen/Creatinine [Mass ratio] 16 No Units Normal 10-20 [facility] Comment on above: Performed By: #### 2 792796, 9351689, 96996471, 0080476, 15476867, 47823703, 38961781 ####[facility] [address] [place] [address] Anion gap [Moles/Vol] 13 mmol/L Normal 6-16 [facility] Comment on above: Performed By: #### 2 257449, 4545163, 06792215, 5544858, 54073645, 67477174, 29744983 ####[facility] [address] [place] [address] Calcium [Mass/Vol] 8.8 mg/dL Low 8.9-11.1 [facility] Comment on above: Performed By: #### 2 007494, 3486988, 35448940, 5047439, 81251266, 84655851, 64482493 ####[facility] [address] [place] [address] Chloride [Moles/Vol] 101 mmol/L Normal 101-111 [facility] Comment on above: Performed By: #### 2 400730, 9472416, 68559256, 4659582, 83791256, 42693716, 59788174 ####[facility] [address] [place] [address] CO2 [Moles/Vol] 27 mmol/L Normal 21-31 [facility] Comment on above: Performed By: #### 2 482869, 8140395, 83014520, 4852210, 73834815, 50771591, 08409955 ####[facility] [address] [place] [address] Glucose [Mass/Vol] 121 mg/dL Normal 55-199 [facility] Comment on above: Result Comment: If t his glucose result represents a fasting glucose, interpretation should refer to the following reference range: 55-99 mg/dL Performed By: #### 2 778169, 4715558, 67661859, 7683972, 70850232, 63735222, 28027788 ####[facility] [address] [place] [address] Potassium [Moles/Vol] 3.9 mmol/L Normal 3.5-5.3 [facility] Comment on above: Performed By: #### 2 950037, 4588020, 39630501, 6488271, 77419077, 12076871, 42195217 ####[facility] [address] [place] [address] Sodium [Moles/Vol] 137 mmol/L Normal 135-145 [facility] Comment on above: Performed By: #### 2 302031, 9743941, 53568112, 8630457, 82060817, 85734006, 77603876 ####[facility] [address] [place] [address] BNPon 08-09-2022 Int Ctr BNP Pass Normal [facility] Comment on above: Performed By: #### 2 202054, 1639536, 06008570, 2270657, 83951601, 96336041, 90539067 ####[facility] [address] [place] [address] Natriuretic peptide B (Bld) [Mass/Vol] 19 pg/mL Normal 5-80 [facility] Comment on above: Performed By: #### 2 909571, 4300814, 90049741, 4581201, 41361152, 05580660, 57496595 ####[facility] [address] [place] [address] Blood Gas Art, with Lytes, Teresa alex, [place] 08-09-2022 a/A Ratio Art 75.90 % Normal >=0.80 [facility] Comment on above: Performed By: #### 4 73358337 ####[facility] [address] [place] [address] AaDO2 Art 21.9 mmHg High 5.0-15.0 [facility] Comment on above: Performed By: #### 4 46035172 ####[address] [address] Allens Test Not Applicable Normal [facility] Comment on above: Performed By: #### 4 29769445 ####[facility] [address] [place] [address] Base Excess Arterial 3.1 mmol/L Normal >=2.8 [facility] Comment on above: Performed By: #### 4 73322494 ####[facility] [address] [place] [address] cCa2+ Art 4.86 mg/dL Normal 4.40-5.30 [facility] Comment on above: Performed By: #### 4 49096972 ####[facility] [address] [place] [address] cCl- Art 105.0 mmol/L Normal 101.0-111.0 [facility] Comment on above: Performed By: #### 4 31032805 ####[facility] [address] [place] [address] cGlu Art 117 mg/dL High 55-99 [facility] Comment on above: Performed By: #### 4 88673160 ####[facility] [address] [place] [address] cK+ Art 4.0 mmol/L Normal 3.5-5.3 [facility] Comment on above: Performed By: #### 4 78421818 ####[address] [place] [address] cLac Art 1.4 mmol/L Normal .5-2.2 [facility] Comment on above: Performed By: #### 4 90199221 ####[address] [place] [address] community services manager+ Art 142.0 mmol/L Normal 135.0-145.0 [facility] Comment on above: Performed By: #### 4 72679011 ####[facility] [address] [place] [address] Drawn by RLG Invalid Interpretation Code [facility] Comment on above: Performed By: #### 4 08118177 ####[facility] [address] [place] [address] FCOHb Art 1.0 % Low 1.5-4.9 [facility] Comment on above: Result Comment: Refe rence range Nonsmoker <1.5% Smoker <5.0% Heavy Smoker <9.0% Performed By: #### 4 11238433 ####[facility] [address] [place] [address] FIO2 BG 21 Invalid Interpretation Code [facility] Comment on above: Performed By: #### 4 22664554 ####[facility] [address] [place] [address] FMetHb Art 0.5 % Normal 0.0-1.9 [facility] Comment on above: Performed By: #### 4 22796979 ####[facility] [address] [place] [address] FO2Hb Art 92.6 % Normal 92.0-100.0 [facility] Comment on above: Performed By: #### 4 75858848 ####[facility] [address] [place] [address] HCO3 (Bld) [Moles/Vol] 27.1 mmol/L High 22.0-26.0 [facility] Comment on above: Performed By: #### 4 [id number] ####[address] [place] [address] Hemoglobin (Bld) [Mass/Vol] 12.5 g/dL Normal 12.0-16.0 [facility] Comment on above: Performed By: #### 4 73052316 ####[address] [address] Oxygen saturation in Blood 94.1 % Low 95.0-100.0 [facility] Comment on above: Performed By: #### 4 11942028 ####[facility] [address] [place] [address] P CO2 Arterial 48.9 mmHg High 35.0-45.0 [facility] Comment on above: Performed By: #### 4 65347975 ####[address] [place] [address] P O2 Arterial 68.8 mmHg Low 80.0-100.0 [facility] Comment on above: Performed By: #### 4 98166042 ####[address] [place] [address] pH Arterial 7.383 Normal 7.350-7.450 [facility] Comment on above: Performed By: #### 4 31145514 ####[address] [place] [address] Sample Site R Brachial Normal [facility] Comment on above: Performed By: #### 4 [id number] ####[address] [address] Sample Type Arterial Draw Normal [facility] Comment on above: Performed By: #### 4 98713088 ####[address] [address] CBC w/ Auto Diffon 3 Erythrocyte distribution width (RBC) [Ratio] 15.4 % High 10.9-14.2 [facility] Comment on above: Performed By: #### 2 438538, 1168375, 41562508, 1031229, 08068156, 63641193, 70383558 ####[address] [address] Hematocrit (Bld) [Volume fraction] 36.9 % Normal 34.0-46.0 [facility] Comment on above: Performed By: #### 2 953407, 3115753, 27399863, 1677041, 84407954, 99149374, 48385865 ####[address] [address] Hemoglobin (Bld) [Mass/Vol] 11.8 g/dL Low 12.0-16.0 [facility] Comment on above: Performed By: #### 2 193007, 9346659, 93641563, 4532231, 29308192, 31602881, 31989870 ####[address] [address] MCH (RBC) [Entitic mass] 28.0 pg Normal 27.0-34.0 [facility] Comment on above: Performed By: #### 2 047543, 1078228, 45639379, 7308965, 84010911, 28595528, 65267814 ####[address] [place] [address] MCHC (RBC) [Mass/Vol] 32.0 g/dL Normal 31.4-36.0 [facility] Comment on above: Performed By: #### 2 148863, 9750819, 98565837, 2412387, 14200583, 47034427, 88542878 ####[facility] [address] [place] [address] MCV (RBC) [Entitic vol] 87.6 fL Normal 80.0-100.0 [facility] Comment on above: Performed By: #### 2 281396, 9058167, 57268620, 8316761, 62625350, 22173195, 26011125 ####[address] [place] [address] Platelet mean volume (Bld) [Entitic vol] 8.4 fL Normal 6.4-10.8 [facility] Comment on above: Performed By: #### 2 267531, 3779388, 98249291, 8888859, 17769260, 59953713, 46318883 ####[address] [address] Platelets (Bld) [#/Vol] 238.0 E9/L Normal 150.0-500.0 [facility] Comment on above: Performed By: #### 2 016452, 3307756, 71184121, 5719167, 12151172, 15268774, 75106817 ####[address] [place] [address] RBC (Bld) [#/Vol] 4.2 E12/L Low 4.3-5.9 [facility] Comment on above: Performed By: #### 2 050475, 5482768, 65109395, 7519129, 85549881, 73865387, 26033988 ####[address] [place] [address] WBC corrected for nucl RBC Auto (Bld) [#/Vol] 16.3 E9/L High 4.0-11.0 [facility] Comment on above: Result Comment: Slid e reviewed by LW. Performed By: #### 2 876305, 1656264, 14676307, 1338086, 73912652, 03334432, 12759373 ####[facility] [address] [place] [address] CHEMISTRYOrdered By: SYSTEM SYSTEM on 08-09-2022 Troponin I.cardiac [Mass/Vol] 7.00 pg/mL Low 10.10 - 27.10 pg/mL FT Remisol Anion gap [Moles/Vol] 13 mmol/L Normal 6 - 16 mEq/L [facility] Calcium [Mass/Vol] 8.8 mg/dL Low 8.9 - 11. 1 mg/dL FT [facility] Chloride [Moles/Vol] 101 mmol/L Normal 101 - 1 11 mmol/L [facility] CO2 [Moles/Vol] 27 mmol/L Normal 21 - 31 mmol/L [facility] Creatinine [Mass/Vol] 1.1 mg/dL Normal 0.5 - 1.3 mg/dL FT [facility] GFR/1.73 sq M.predicted among blacks MDRD (S/P/Bld) [Vol rate/Area] mL/min/1.73 m2 Normal >=59mL/min/1 .73 m2 [facility] Chem S GFR/1.73 sq M.predicted among non-blacks MDRD (S/P/Bld) [Vol rate/Area] 50 mL/min/1.73 m2 Low >=59mL/min/1 .73 m2 [facility] Chem S Glucose [Mass/Vol] 121 mg/dL Normal [...] 19 pg/mL Normal 5 - 80 pg/mL [facility] HemeManSS COAGULATIONOrdered By: Sagar Castorena on 08-09-2022 aPTT Coag (PPP) [Time] 31.4 s Normal 25.1 - 36.5 second(s) [facility] Auto Coag INR Coag (PPP) [Relative time] 0.9 {INR} Invalid Interpretation Code [facility] Auto Coag PT Coag (PPP) [Time] 10.3 s Normal 9.4 - 1 2.5 second(s) [facility] Auto Coag CTA Cheston 08-09-2022 CTA Chest [...] 370 Contrast amount in ml's: 73 Normal [facility] Discharge Instructionson Discharge Instructions [id number]# [id number]:127 Normal [facility] ED Clinical Summaryon 2022 ED Clinical Summary [place] [id number] ED Clinical Summary Person Information Name: VIVIAN VANN [place] Age: 62 Years : 1960 Sex: Female Language: Latvian PCP: Екатерина Robert MD Marital Status: Visit [...] 08/09/2022 18:01:49 08/09/2022 18:01:49 ADDRESS: [address] [place] [id number] PHYS DOC NOTES: MEDICAL INFORMATION: Prescriptions Given: [facility], [address], [place] [id number], [phone] brompheniramine/dextr omethorphan/PSE (Bromfed DM oral syrup) 5 [...] Disease Follow up: With: Address: When: Екатерина oRbert [address] [place] [address], [facility] [place] [id number] Business (1) In 3 days 08/12/2022 Comments: Call the office of your primary care doctor to arrange for follow-up within the above-stated timeframe. Follow-up with your primary care doctor about this ED visit. You should review your labs, imaging, and diagnoses from this ED visit with your primary care physician. If y (more content not included)... Normal [facility] ED Note-Physicianon 08-10-19 ED Note-Physician Basic Information [...] that she has had 2 admissions to [facility] over the last few weeks for pneumonia/COPD exacerbation. Patient is currently on amoxicillin at home, feels that her symptoms are not improving but are in fact worsening. Patient endorses fevers and chills, myalgias. Patient reports her symptoms had not improved much on her last discharge from [facility], and worsening since that time. Patient is [...] and Complexity of Problems Differential Diagnosis: [] [facility] Data External documents reviewed: [] My [...] for co (more content not included)... Normal [facility] Comment on above: Result Comment: Elec tronically [...] these instructions at home: Medicines ? Take hslg-jzb-fwxkuct and prescription medicines (inhaled or pills) only [...] you e (more content not included)... Normal [facility] ED Patient Summaryon 023 ED Patient Summary [address] [address] Patient Discharge Instructions Person Information Name: VIVIAN VANN Age: 62 Years Arrival Date: 08/09/2022 13:09:07 Discharge Diagnosis: COPD exacerbation Primary Care Physician: Екатерина Robert MD Provider Information Primary Provider: Arsenio Martin DO Advanced Director Of Knowledge Management:Clinton Lucero PA-C The exam and treatment you received in the Emergency Department were for an urgent problem and are not intended as complete care. It is important that you follow up with a doctor, nurse practitioner, or physician?s child care center assistant director for ongoing care. If your symptoms become worse or you do not improve as expected and you are unable to reach your usual health care provider, you should return to the Emergency Department. We are available 24 hours a day. VIVIAN VANN has been given the following list of patient education materials, prescriptions and follow-up instructions: Follow-up Instructions: With: Address: When: Екатерина Robert [address] [place] [address], [facility] [address] Business (1) In 3 days [...] opioids can be used to help relieve fjuhzbbi-qo-heztmq pain and are often prescribed following a [...] disp (more content not included)... Normal [facility] EMS Documentationon 08-10-19 23 EMS Documentation Please click on link to see report [id number] CiX5+prnDQolQUJDcGRmI FUfXdD2OXepSqEySK8jwl 7OCHmYU2CvAFLoTPw5Ab4 I QDikKJq1GJYtVV0DO8uzT Eu9YrF1Ef0EcF5fZYKees DvFGITO50vLkwoOxGgUHx mHGJnSmu9McEI Lp9cDMVzDRXuECUrNXAlB CAgICAgICAgICAgICAgIC AgICAgICAgICAgICAgICA gICAgICAgICAg ICAgICAgICAgICAgICAgI CAgICAgDQplbmRvYmoNCg 3CvWWiVj0MEsRzAcFEKsQ wMDAwMDAwMzIg LKWmJGDndd2ATOCxIFSnU BY3GJDiSXJtIPEuQHvnPV WfVIUvJKt6YEAyNXWyQB1 NCjAwMDAwMDE3 ZAYyLZCgUMCvqb1CMPDoD DAwMTkzNCAwMDAwMCBuDQ qaJKWaZDJvBXn0VBIsHJW dEJ7QCsHxXCXy YHGfCiEwIFCtXIXujv3NF DAwMDAwMjMxNSAwMDAwMC HuWTjtWIIvGHAlNiw2EZY xOJMuYP1BQmGn HQCsLXV7LBfuOBEiJGTdt m2WRFHfCYFvJgxsVUWzJX AwMCBuDQowMDAwMDAzMDY pXGZhLAXaEQ3U UrPaYIFcGTM9EGTcBERnU RSvob0CDGMlPUSoXaCeWo AwMDAwMCBuDQowMDAwMDA yTJL8VUYxZQHd GJ7WXsUxWBRfSGKlYOPgT KFhUFOrtz7PNIXzZHUoUC C3DlIvMSShHAVlCYobKUJ nTIK6LoD8TAAh GLXuPE5ALkEqBASdAFS4J XLrNLXkLZXuue9NLEHfZS RzOHI3YLVgQKIxXATqVUk aSAOxNHO0RNG7 BUGmTLScZN4EOxOqDBYcF AF8VShqRPUzEPHyfe3JFQ AwMDAwOTMwMCAwMDAwMCB uDQowMDAwMDQ5 FBdjYMXwEGCjHK6KKhNpL KMwHCA1FDPmVBLfXBHzfo 6ChIOwgXyark3NHWpYI1i LPQr0XYKYSMM2 XmF9B9O1EvV4CRcPFPbhQ YE4BSEAKyC8DTH+CjxGRj DiB7XTLJWQAIPzIghxDHO TDRS3ERyrMWa6 TQGmJS8xNe2SrwJ0PKY8T LarDRqkZc6clOJzGuQsMM UTA2PereAdOJyDX3UjlCL pPUFfS2CIDAI4 Xr22MruobDbJUYZ4EZFJQ RmuDB5IOggAWyUcNAtxKs 13U1KMl1F9VaBeL7VTyYd UeeTCEPafH0rA oDK4l6dhfGsVmLSDaUklS GdJcndPalFSQUlqUHNXaE 69tguPI2EnITd9E9XRXi1 FSSchNdHhhK7R vNbeZZQ4jZ2xMCQTEZzNM gtdFG4WWTIXFIc3OHj+Pi AgICAgICAgICAgICAgICA gICAgICAgICAg ICAgICAgICAgICAgICAgI CAgICAgICAgICAgICAgIC AgICAgICAgICAgICAgICA gICAgICAgICAg ICAgICAgICAgICAgICAgI CAgICAgICAgICAgICAgIC AgICAgICAgICAgICAgICA gICAgICAgICAg ICAgICAgICAgICAgICAgI CAgICAgICAgICAgICAgIC AgICAgICAgICAgICAgICA gICAgICAgICAg ICAgICAgICAgICAgICAgI CAgICAgICAgICAgICAgIC AgICAgICAgICAgICAgICA gICAgICAgICAg ICAgICAgICAgICAgICAgI CAgICAgICAgICAgICAgIC AgICAgICAgICAgICAgICA gICAgICAgICAg ICAgICAgICAgICAgICAgI CAgICAgICAgICAgICAgIC AgICAgICAgICAgICAgICA gICAgICAgICAg ICAgICAgICAgICAgICAgI CAgICAgICAgICAgICAgIC AgICAgICAgICAgICAgICA gICAgICAgICAg GP1Tx4SasfE8okLjBBscZ HpbGEAEJc9SUFtkUbKdYD 7ypw8MZVmOW62dtIYeBJM hIDIxIDAgUgov H4PfijAmhFrsxyPuLmRaH MHUUo7NkACDNCqtP2B3oU qiCZHlESxuYKXTNf8UYKj zKH6qEEArJDRw Bp5lQLjyWPGeDMUbEeBiF LTMZx1HdDOkWE3WQNVwjJ 9nCj4+DQplbmRvYmoNCg0 KMjQgMCBvYmoN Byx9Gz7WyGn4UWQcL5BkG EWuCDSnw5UtIs0SEC7mpM vnDYU4Xh6UZMt8Pa7+DQp joDIvXN7NKcoh R8UlRKDdYSFnZRHrNZxUt XCgAIUpQLYQVIyLgXHaDQ jzpTYDMsAQZzMCEmJQzMC xOeG3DMrRV0Z0 XIaFXkIyr9Q2QIkDUHNQZ lZmZVtKbWhT7tFNvTkLhu Q89OX8hBoFWOUnWDIX0RV tnFxN6WsHHp2I 3N3MNT9rw0ZuJELmQMmmd aVvDklRKb6JSsFfMBKbUc pZAiv7Ey3Na487JB38kxP bNDIgMCBSXQov XJOiuJQLl5piJuIpSWK0N DMvNrjkAEcpDOAzQI82MV YjNTGoLryfDpLiu6MlL9A lIMv9Zx4RQ3Hf QRJ8WSm8La6UNPNvCfCxV fRtWJNNJe9AAm9OT6W3rE CgK3BbL2VCAk0LXuUyGN3 fgq1TWRvwVcHa XL4kkr8ZTVqND5HOm1epU bHcKOM8AEDkIkflAJpmIa cohLKzJK0QoJR1FJAgK54 yTGivFDHcU5Lx PPu3Wi2LYASisDTcCDZfD AnXN9mSUkwiY7YvZNgEF9 jtWaC1TFMkZKRuDfd+Pgo +SosfM1TiqUic VOKwZy8pdXfoBVrtFFHcU E7zplFrgTs+Pw7Dn0LoRL DlOJi8cBUJ9WFg8PXeNLN lEFL6KUUdziHE XNze7DqGyWXmTqLhmEGpP 6ywLCEu70bKUGFwQumLq4 mkIyLt0PsVFS+MR1EKqpU kOvNnca0VZQbo kcWyzVOlGV0THcOaVW9au v7FHAbpYuRgLL9gdn1VGH aWI3QUXQ2Ye3KqHKsID3Z SKEXCN1nUBVKL V7mRGDGXH8eNZKENJ18US TGSO6FGJBWoaFQWJ8FbVX NVFt4OEwLdYI8sij0PKTe yTHFpYC9eha2F KZjZL4EXXI3Qr0XrTDhGB 1NjXYTSUq1IVvIlNS7ieu 3YIDsmMFHdKM7rqn8JWDt NH2LDAT0Hd1Qr CIpTX8WPUCAUM3cHGYHSR 9sPIQRPE0pPKWMUQ38EWH DNB9DCGUVzzHDZY8PoDDW WEn5ELaFjGE2p oo8SKGjmEFPlTP5ffv2AH EsRG4Bfc8WLs687QA5UVj nHLU4kP235sfewgq2hx8H TLUJvbGRNVAov PGZqQ0GwEYCnbVBeagZjW JffHLErBYVvMm8DzhDnND luZyAvSWRlbnRpdHktSAo qE4QirElmPKNo DRzmAANGY4BiOM2fC13dT XSbEtPrZPMXW5N7eACrG1 YrajMBZj2IVnCrEH3bob5 GSFycTCFbXL0t jc4TADlMP6Dct9WZq949X C1CKrtQAE0lS252zyuzlq 6ri6KPJAZxfEWJOLatH2e YO1ibyADcJL9k hbZ8XMhnP3EtLORqftzyJ XdoPE50xVQ1FIlkEqJmuG H2ywqsWMAvf1LmIItkU9Y wcGxlbWVudCAw Cj4+Zo3EXLUSe5oFIV9zy GIgSEWyexPfoRtNY9WRTW APF2IxbjKSBGKoieleqZ5 yIDMyIDAgUgov V0PdtPdcHRItB9cUZj7kj TY5xQQlDk0NpWLjAE4Ve0 10Mt6MJKmnPLluXLTvBQ1 lWCp4Nk3OHt3Q LfEsLR8qua1PTTmzLlAcZ H4rqb8ZKAkWQ4UkZ1VyfP Z5XwBeTEX9DBKQP9BhjRc luXdjnXC3WDWk Rzh4DGiMN5Crq8ZpjlAiG lQgKgA2Xat8Cz1CcLDnnf HzILddTj2tyFGDw9frUj0 bMJHnNHw7ZXTn DPmhLN92ILnnWxV0FSNtF uSzCEEeIGCkQZ2zISY0AJ 5ZF8GjwcKJnLuxVnQ7WAI hSMQZF5JataZR UN4cOE6XGwnSWU5bF717z wtdvf1rt5WTMHEpbHMBHC fuEIIowTzrXP1crIYxQTp jM4EcdFFrRmVu UVojKCwTB5I6nMDaA5Ocv jIOTHTfjrrluU9qQc2+DQ wiwlOlOyhBPc8XVvDcQHW fHurCQuo8Bq6Q iNo1QAEtF2CzHNOlKWNck 8BzTa4XVX9fpTkxLmL6Kj 4+WZsogXZwLR7SEnbtVPR UedRjCUr9D1uE LmSIEGyGHJhkgdMqK1AyB 6p6mNqAuZxj8O1kwdSQbv acA6dii39O0M4+lZms2VZ LmxXTb2P3e4z2 cCX2DQpzMOb7AnkaHa4j9 BxLoridpwBDY/uRlSXnyV hNGcUHoSSZ9hrqRJLaRMd od3e8gQwR26vq vzCADVywquIa+cm37zg7v kQrsHlj7Ec1VL2OrFGhr6 uELqKTtgUqlfg5Dvrnt3Z RZKfAb5ThPBKk /1RqZb259zF0yQ9zfnWUS Km9sDZQJlLInEkz4k8pSp QkCT1HxA1fVpZA0c3WdrG Cq4z94aBEB5Io RvIayawgcodHIYmkChnJi xckc/IfLB1ra2PxOBL+y+ rQaYWlHlda9UiwIx6JobM V19mLNFbF52/A dV5NBm0lkkgiDg9DON9vd 3RyZWFtDQplbmRvYmoNCg 3MUdWdHCBuPieXWmk9Rt1 ADQRsIq6plIVr AjvSLHcJL7CwbGTvUUBWV KgHY31LEw2LSKXqEK8oQA 03Hv5swXCrPbZ4FHEhKg3 PI8GtY07izE5t QV7EYOJrnWx6bP2CGa9Rd QU8kMVnCY1ZyHIwEUicXG 6Psmkgo8YfQQE3 (more content not included)... Normal [facility] FT Blood GasesOrdered By: Ra raciel Marx [...] 105.0 mmol/L Normal 101.0 - 111.0 mmol/L [facility] [place] Resp Auto SS cGlu Art 117 mg/dL High 55 - 99 mg/dL FT Resp Auto SS cK+ Art 4.0 mmol/L Normal 3.5 - 5.3 mmol/L [facility] [place] Resp Auto SS cLac Art 1.4 mmol/L Normal 0.5 - 2.2 mmol/L [facility] [place] Resp Auto SS community services manager+ Art 142.0 mmol/L Normal 135.0 - 145.0 mmol/L [facility] [place] Resp Auto SS Drawn by RLG Invalid Interpretation Code [facility] [place] Resp Auto SS FCOHb Art 1.0 % Low 1.5 - 4.9 % [facility] [place] Resp Auto SS FIO2 BG 21 Invalid Interpretation Code [facility] [place] Resp Auto SS FMetHb Art 0.5 % Normal 0.0 - 1.9 % [facility] [place] Resp Auto SS FO2Hb Art 92.6 % Normal 92.0 - 100.0 % [facility] [place] Resp Auto SS HCO3 (Bld) [Moles/Vol] 27.1 mmol/L High 22.0 - 26.0 mmol/L [facility] [place] Resp Auto SS Hemoglobin (Bld) [Mass/Vol] 12.5 g/dL Normal 12.0 - 16.0 gm/dL [facility] [place] Resp Auto SS P CO2 Arterial 48.9 mm[Hg] High 35.0 - 45.0 mmHg [facility] [place] Resp Auto SS P O2 Arterial 68.8 mm[Hg] Low 80.0 - 100.0 mmHg [facility] [place] Resp Auto SS pH Arterial 7.383 Normal 7.350 - 7.450 [facility] [place] Resp Auto SS Sample Site R Brachial (08/09/22 2:03 PM) Normal [facility] [place] Resp Auto SS Sample Type Arterial Draw (08/09/22 2:03 PM) Normal [facility] [place] Resp Auto SS HEMATOLOGYOrdered By: SYSTEM SYSTEM on 08-09-2022 Basophils/100 WBC (Bld) 0.5 % Normal 0.0 - 2.0 % [facility] [place] [place] [facility] Basophils/Leukocytes Auto (Bld) [Pure # fraction] [...] 16.3 E9/L High 4.0 - 11.0 E9/L [facility] Comment on above: Result Comment: Slid e reviewed by TITI. PT & PTTon 08-09-2022 aPTT Coag (PPP) [Time] 31.4 second(s) Normal 25.1-36.5 [facility] Comment on above: Result Comment: Para meter [...] the same coagulation reagent and instrumentation as [facility]. Currently there are no coagulation studies available worldwide for children to 14 days, and no normal ranges. Heparin therapeutic range (represented by Anti-Factor Xa activity of 0.2 - 0.4 U/mL) corresponds to PTT of 56.6 - 109.0 sec. Performed By: #### 2 [id number], 5998964, 17714482, 7894466, [id number], [id number], [id number] ####[facility] [address] [place] [address] INR Coag (PPP) [Relative time] 0.9 {INR} Invalid Interpretation Code [facility] Comment on above: Result Comment: INR results are specifically intended to assess patients stabilized on long-term Anticoagulation therapy suggested INR?s ?Less Intensive Anticoagulation? 2.0 ? 3.0 Conventional Range 3.0 ? 4.5 Performed By: #### 2 624926, 7577008, 52397626, 5407676, 20048866, 63223102, [id number] ####[facility] [address] [place] [address] PT Coag (PPP) [Time] 10.3 second(s) Normal 9.4-12.5 [facility] Comment on above: Result Comment: 15 d [...] the same coagulation reagent and instrumentation as [facility]. Currently there are no coagulation studies available worldwide for children to 14 days, and no normal ranges. Performed By: #### 2 103624, 9411143, 85057494, 5001502, 93670734, 10178758, [id number] ####[facility] [address] [place] [address] Pre-Arrival Noteon Pre-Arrival Note Pre-Arrival Summary Name: , Current Date: 08/09/2022 13:09:29 EDT Gender: Female Date of : Age: 62 Pre-Arrival Type: EMS ETA: 08/09/2022 13:33:00 EDT Primary Care Physician: Presenting Problem: sob Pre-Arrival User: John Martin Referring Source: Location: CT Completion Date/Time: 08/09/2022 13:03:00 [facility] Emergency Department Pre-Hospital Report Form Vital Signs: Pre-Hospital Report: Treatment in Route: Response to Treatment: Misc. Issues: Normal [facility] Troponin 0 Hr.on 08-09-2022 Troponin I.cardiac [Mass/Vol] 4.00 pg/mL Low 10.10-27.10 [facility] Comment on above: Result Comment: The 95% CI (Confidence Interval) PPV (Positive Predictive Value) for myocardial infarction in females is 38 pg/mL, in males 51 pg/mL. The results should be used in conjunction with clinical conditions of myocardial infarction. (GTX Messaging High Sensitivity Troponin I Instructions For Use, [place], December 2017) Performed By: #### 2 134129, 7823819, 34817936, 7062135, 70310488, 63101122, [id number] ####[facility] [address] [place] [address] Troponin 3 Hr.on 08-09-2022 Troponin I.cardiac [Mass/Vol] 7.00 pg/mL Low 10.10-27.10 [facility] Comment on above: Result Comment: The 95% CI (Confidence Interval) PPV (Positive Predictive Value) for myocardial infarction in females is 38 pg/mL, in males 51 pg/mL. The results should be used in conjunction with clinical conditions of myocardial infarction. (GTX Messaging High Sensitivity Troponin I Instructions For Use, [place], December 2017) Performed By: #### 1 [id number] ####[facility] [address] [place] [address] XR Chest Single Viewon 08-09 XR Chest [...] mGy = na DAP = na Normal [facility] eGFRon 08-09-2022 GFR/1.73 sq M.predicted among blacks MDRD (S/P/Bld) [Vol rate/Area] mL/min/{1.73_m2} Normal >=59 [facility] Comment on above: Order Comment: Order added by Discern Expert. Result Comment: eGFR is race adjusted. AA=. Performed By: #### 2 040559, 1804834, 29589849, 5864574, 28050990, 74469410, [id number] ####[facility] [address] [place] [address] GFR/1.73 sq M.predicted among non-blacks MDRD (S/P/Bld) [Vol rate/Area] 50 mL/min/1.73 m2 Low >=59 [facility] Comment on above: Order Comment: Order added by Discern Expert. Result Comment: General Education Professor valeria kidney disease could be indicated at eGFR's of less than 60 mL/min/1.73m2. Kidney failure is indicated at less than 15 mL/min/1.73m2. Performed By: #### 2 233789, 1791595, 90592323, 1099302, 88659669, 09683481, 15358623 ####[facility] [address] [place] [address] CBC W MANUAL DIFFon 08-02-19 23 ATYPICAL LYMPH # Normal [facility] Comment on above: Performed By: #### C ROSARIO ####[facility] [address] [place] [id number]. Rosemarielan Yañez ATYPICAL LYMPH % Normal [facility] Comment on above: Performed By: #### C ROSARIO ####[facility] [address] [place], [place] [address]Oy. Yilan Yañez BAND # 0.9 103/ul Critically high 0.0-0.3 [facility] Comment on above: Performed By: #### C ROSARIO ####[facility] [address] [place] [id number]. Yilan Yañez BAND % 5 % Normal 0-5 [facility] Comment on above: Performed By: #### C ROSARIO ####[facility] [address] [place] [phone]. Nahed Yañez BASOM # 0.00 103/ul Normal 0.00-0.10 [facility] Comment on above: Performed By: #### C BCMAN ####[facility] [address] [place] [address]Dr. Nahed Yañez BASOM % 0.0 % Critically low 0.2-2.0 [facility] Comment on above: Performed By: #### C BCMAN ####[facility] [address] [place] [address]Dr. Nahed Yañez BLAST # Normal [facility] Comment on above: Performed By: #### C BCISAIAH ####[facility] [address] [place], [place] [address]Dr. Nahed Yañez BLAST % Normal [facility] Comment on above: Performed By: #### C BCISAIAH ####[facility] [address] [place], [place] [address]Dr. Nahed Yañez CORRECTED WBC Normal 4.0-11.0 [facility] Comment on above: Performed By: #### C BCISAIAH ####[facility] [address] [place], [place] [address]Dr. Nahed Yañez EOS # 0.00 103/ul Normal 0.00-0.70 [facility] Comment on above: Performed By: #### C BCISAIAH ####[facility] [address] [place], [place] [address]Dr. Nahed Yañez EOS% 0.0 % Critically low 0.9-7.0 [facility] Comment on above: Performed By: #### C BCISAIAH ####[facility] [address] [place] [address]Dr. Nahed Yañez HCT 39.5 % Normal 36.0-48.0 [facility] Comment on above: Performed By: #### C BCMAN ####[facility] [address] [place], [place] [address]Dr. Nahed Yañez HGB 13.0 g/dl Normal 12.0-16.0 [facility] Comment on above: Performed By: #### Isabell PONCE ####[facility] [address] [place], [place] [address]Td. Nahed Yañez LYMPHM # 1.72 103/ul Normal 1.20-3.80 [facility] Comment on above: Performed By: #### Isabell PONCE ####[facility] [address] [place] [phone]. Nahed Yañez LYMPHM% 10.0 % Critically low 20.5-60.0 [facility] Comment on above: Performed By: #### Isabell PONCE ####[facility] [address] [place] [phone]. Nahed Yañez MCH 28.7 pg Normal 26.7-34.0 [facility] Comment on above: Performed By: #### Isabell PONCE ####[facility] [address] [place] [phone]. Nahed Yañez MCHC 32.9 g/dl Normal 29.9-35.2 [facility] Comment on above: Performed By: #### Isabell PONCE ####[facility] Hz[address] [place] [phone]. Nahed Yañez MCV 87.2 fL Normal 81.0-99.0 [facility] Comment on above: Performed By: #### Isabell PONCE ####[facility] [address] [place] [phone]. Nahed Yañez METAMYELOCYTE # Normal [facility] Comment on above: Performed By: #### Isabell PONCE ####[facility] [address] [place] [phone]. Nahed Yañez METAMYELOCYTE % Normal [facility] Comment on above: Performed By: #### Isabell PONCE ####[facility] [address] [place] [phone]. Nahed Yañez MONOM# 0.86 103/ul Critically high 0.30-0.80 [facility] Comment on above: Performed By: #### Isabell PONCE ####[facility] [address] [place] [phone]. Nahed Yañez MONOM% 5.0 % Normal 1.7-12.0 [facility] Comment on above: Performed By: #### C ROSARIO ####[facility] [address] [place] [phone]. Nahed Yañez MPV 9.8 fL Normal 9.5-13.5 [facility] Comment on above: Performed By: #### C ROSARIO ####[facility] [address] [place] [phone]. Nahed Yañez MYELOCYTE # Normal [facility] Comment on above: Performed By: #### C ROSARIO ####[facility] [address] [place] [phone]. Nahed Yañez MYELOCYTE % Normal [facility] Comment on above: Performed By: #### C ROSARIO ####[facility] [address] [place] [address]Dr. Nahed Yañez NRBC Normal [facility] Comment on above: Performed By: #### C ROSARIO ####[facility] [address] [place] [phone]. Nahed Yañez PLT 388 103/ul Normal 150-450 [facility] Comment on above: Performed By: #### C ROSARIO ####[facility] [address]mcfejj[address] [place] [phone]. Nahed Yañez RBC 4.53 106/ul Normal 4.20-5.40 [facility] Comment on above: Performed By: #### C ROSARIO ####[facility] [address] [place] [phone]. Nahed Yañez RDW 14.4 % Normal 11.0-15.0 [facility] Comment on above: Performed By: #### C ROSARIO ####[facility] [address] [place] [phone]. Nahed Yañez SEG # 13.76 103/ul Critically high 1.40-6.50 [facility] Comment on above: Performed By: #### C ROSARIO ####[facility] [address] [place], [place] [address]Dr. Nahed Yañez SEG % 80.0 % Critically high 43.0-75.0 [facility] Comment on above: Performed By: #### C BCMAN ####[facility] [address] [place] [address]Dr. Nahed Yañez WBC 17.2 103/ul Critically high 4.0-11.0 [facility] Comment on above: Performed By: #### C BCMAN ####[facility] [address] [place] [address]Dr. Nahed Yañez MAGNESIUMon 08-01-2022 Magnesium [Mass/Vol] 2.0 mg/dL Normal 1.8-2.4 [facility] Comment on above: Performed By: #### MG COLE, CMP ####[facility] [address] [place] [address]Dr. Nahed Yañez POINT OF CARE GLUCOSEon 07-13 Glucose [Mass/Vol] 267 mg/dL Critically high 74-106 [facility] Comment on above: Performed By: #### P OCGLUC ####[facility] [address] [place] [address]Dr. Nahed Yañez PROF 14(COMP METB)on 023 Albumin [Mass/Vol] 3.4 g/dL Normal 3.4-5.0 [facility] Comment on above: Performed By: #### MG COLE, CMP ####[facility] [address]qs[address] [place] [address]Dr. Nahed Yañez Albumin/Globulin [Mass ratio] 0.9 {ratio} Normal [facility] Comment on above: Performed By: #### MG COLE, CMP ####[facility] [address]vpmj[address] [place] [address]Dr. Nahed Yañez ALP [Catalytic activity/Vol] 100 U/L Normal 46-116 [facility] Comment on above: Performed By: #### MG COLE, CMP ####[facility] Ekw[address]kw[address] [place] [address]Dr. Nahed Yañez ALT [Catalytic activity/Vol] 19 U/L Normal 14-59 [facility] Comment on above: Performed By: #### MG COLE, CMP ####[facility] [address]xi[address] [place] [address]Dr. Nahed Yañez Anion gap [Moles/Vol] 12.7 mmol/L Normal Th e [facility] Comment on above: Performed By: #### MG COLE, CMP ####[facility] [address] [place], [place] [address]Dr. Nahed Yañez AST [Catalytic activity/Vol] 13 U/L Critically low 15-37 [facility] Comment on above: Performed By: #### MG COLE, CMP ####[facility] [address]pi[address] [place], [place] [address]Dr. Nahed Yañez Bilirubin [Mass/Vol] 0.4 mg/dL Normal 0.2-1.0 [facility] Comment on above: Performed By: #### MG COLE, CMP ####[facility] [address] [place], [place] [address]Dr. Nahed Yañez Calcium [Mass/Vol] 9.5 mg/dL Normal 8.5-10.1 [facility] Comment on above: Performed By: #### MG COLE, CMP ####[facility] Vsph[address]vstm[address] [place], [place] [address]Dr. Nahed Yañez Chloride [Moles/Vol] 100 mmol/L Normal 98-107 [facility] Comment on above: Performed By: #### MG COLE, CMP ####[facility] Tqrx[address]nvj[address] [place], [place] [address]Dr. Nahed Yañez CO2 [Moles/Vol] 27.1 mmol/L Normal 21.0-32.0 [facility] Comment on above: Performed By: #### MG COLE, CMP ####[facility] Ssrkzaerxh[address] [place], [place] [address]Dr. Nahed Yañez Creatinine [Mass/Vol] 1.16 mg/dL Critically high 0.55-1.02 [facility] Comment on above: Performed By: #### MG COLE, CMP ####[facility] [address]azcvc[address] [place] [address]Dr. Nahed Yañez EGFR-AF [place] 58 mL/min/1.73m2 Critically low >=60 [facility] Comment on above: Performed By: #### MG COLE, CMP ####[facility] [address] [place] [address]Dr. Nahed Yañez EGFR-NON AF [place] 47 mL/min/1.73m2 Critically low >=60 [facility] Comment on above: Performed By: #### MG COLE, CMP ####[facility] E[address]bx[address]csb42[address] [place] [address]Dr. Nahed Yañez Globulin (S) [Mass/Vol] 3.6 g/dL Normal [facility] Comment on above: Performed By: #### MG COLE, CMP ####[facility] [address] [place], [place] [address]Dr. Nahed Yañez Glucose [Mass/Vol] 175 mg/dL Critically high 74-106 [facility] Comment on above: Performed By: #### MG COLE, CMP ####[facility] S[address]ukn[address] [place], [place] [address]Dr. Nahed Yañez Potassium [Moles/Vol] 3.8 mmol/L Normal 3.5-5.1 [facility] Comment on above: Performed By: #### MG COLE, CMP ####[facility] Vshoenhr[address] [place], [place] [address]Dr. Nahed Yañez Protein [Mass/Vol] 7.0 g/dL Normal 6.4-8.2 [facility] Comment on above: Performed By: #### MG COLE, CMP ####[facility] [address]qwxdze[address] [place], [place] [address]Dr. Nahed Yañez Sodium [Moles/Vol] 136 mmol/L Normal 136-145 [facility] Comment on above: Performed By: #### MG COLE, CMP ####[facility] W[address]zqbijmr[address] [place], [place] [address]Dr. Nahed Yañez Urea nitrogen [Mass/Vol] 25.0 mg/dL Critically high 7.0-18.0 [facility] Comment on above: Performed By: #### MG COLE, CMP ####[facility] [address]qhxs[address] [place], [place] [address]Dr. Nahed Yañez Urea nitrogen/Creatinine [Mass ratio] 21.6 mg/mg Normal [facility] Comment on above: Performed By: #### MG COLE, CMP ####[facility] Mycqlfnshj[address] [place], [place] [address]Dr. Nahed Yañez THEOPHYLLINEon 08-01-2022 THEOPHYLLINE 17.1 ug/mL Normal 10.0-20.0 [facility] Comment on above: Performed By: #### MG COLE, CMP ####[facility] Lvmcyxhesi[address] [place], [place] [address]Dr. Nahed Yañez CBC AUTO DIFFon 07-31-2022 BASO # 0.0 103/ul Normal 0.0-0.1 [facility] Comment on above: Performed By: #### C BC ####[facility] T[address]tb[address]er[address] [place], [place] [address]Dr. Rosemarieashley Yañez Basophils/100 WBC (Bld) 0.2 % Normal 0.2-2.0 [facility] Comment on above: Performed By: #### C BC ####[facility] Zyeumlngtv[address] [place], [place] [address]Dr. Nahed Yañez EO # 0.0 103/ul Normal 0.0-0.7 [facility] Comment on above: Performed By: #### C BC ####[facility] X[address]ryktooz[address] [place], [place] [address]Dr. Rosemarieashley Yañez Eosinophils/100 WBC (Bld) 0.0 % Critically low 0.9-7.0 [facility] Comment on above: Performed By: #### C BC ####[facility] [address]un[address] [place], [place] [address]Dr. Nahed Yañez Erythrocyte distribution width (RBC) [Ratio] 14.2 % Normal 11.0-15.0 [facility] Comment on above: Performed By: #### C BC ####[facility] [address] [place] [address]Dr. Rosemarieashley Yañez Hematocrit (Bld) [Volume fraction] 36.0 % Normal 36.0-48.0 [facility] Comment on above: Performed By: #### C BC ####[facility] [address]by[address] [place] [address]Dr. Nahed Yañez Hemoglobin (Bld) [Mass/Vol] 11.4 g/dL Critically low 12.0-16.0 [facility] Comment on above: Performed By: #### C BC ####[facility] Eybokvroma[address] [place], [place] [address]Dr. Nahed Yañez IG # 0.21 10e3/ul Critically high 0.00-0.03 [facility] Comment on above: Performed By: #### C BC ####[facility] Offrbvptud[address] [place], [place] [address]Dr. Nahed Yañez IG % 1.8 % Critically high 0.0-0.5 [facility] Comment on above: Performed By: #### C BC ####[facility] [address]mpagsx[address] [place], [place] [address]Dr. Nahed Yañez LYMPH # 1.3 103/ul Normal 1.2-3.8 [facility] Comment on above: Performed By: #### C BC ####[facility] [address]uxeb[address] [place], [place] [address]Dr. Nahed Yañez Lymphocytes/100 WBC (Bld) 11.2 % Critically low 20.5-60.0 [facility] Comment on above: Performed By: #### C BC ####[facility] [address]tzxafp[address] [place], [place] [address]Dr. Nahed Yañez MANUAL DIFF REQ NO Normal [facility] Comment on above: Performed By: #### C BC ####[facility] [address]qhthug[address] [place], [place] [address]Dr. Nahed Yañez MCH (RBC) [Entitic mass] 27.7 pg Normal 26.7-34.0 [facility] Comment on above: Performed By: #### C BC ####[facility] [address]kw[address]mt[address] [place] [id number]. Nahed Yañez MCHC (RBC) [Mass/Vol] 31.7 g/dL Normal 29.9-35.2 [facility] Comment on above: Performed By: #### C BC ####[facility] [address]blyw[address] [place] [phone]. Nahed Yañez MCV (RBC) [Entitic vol] 87.6 fL Normal 81.0-99.0 [facility] Comment on above: Performed By: #### C BC ####[facility] [address] [place], [place] [address]Dr. Nahed Yañez MONO # 0.8 103/ul Normal 0.3-0.8 [facility] Comment on above: Performed By: #### C BC ####[facility] R[address]vrfrfa[address] [place], [place] [address]Dr. Nahed Yañez Monocytes/100 WBC (Bld) 7.0 % Normal 1.7-12.0 [facility] Comment on above: Performed By: #### C BC ####[facility] [address] [place], [place] [address]Dr. Nahed Yañez NEUT # 9.2 103/ul Critically high 1.4-6.5 [facility] Comment on above: Performed By: #### C BC ####[facility] [address]qcb[address] [place], [place] [address]Dr. Nahed Yañez Neutrophils/100 WBC (Bld) 79.8 % Critically high 43.0-75.0 [facility] Comment on above: Performed By: #### C BC ####[facility] [address]ncxeqc[address] [place], [place] [address]Dr. Nahed Yañez Platelet mean volume (Bld) [Entitic vol] 9.8 fL Normal 9.5-13.5 [facility] Comment on above: Performed By: #### C BC ####[facility] Ibsykfrnvi[address] [place], [place] [address]Dr. Nahed Yañez PLT 317 103/ul Normal 150-450 [facility] Comment on above: Performed By: #### C BC ####[facility] Runfcvgzln[address] [place] [phone]. Nahed Yañez RBC 4.11 106/ul Critically low 4.20-5.40 [facility] Comment on above: Performed By: #### C BC ####[facility] [address]zidaiige[address] [place] [phone]. Nahed Yañez WBC 11.5 103/ul Critically high 4.0-11.0 [facility] Comment on above: Performed By: #### C BC ####[facility] A[address]eayuw27[address] [place] [phone]. Nahed Yañez MAGNESIUMon 07-31-2022 Magnesium [Mass/Vol] 1.8 mg/dL Normal 1.8-2.4 [facility] Comment on above: Performed By: #### M JUDY Moore, CMP ####[facility] [address]biwi[address] [place] [address]Dr. Nahed Yañez POINT OF CARE GLUCOSEon 07-13 Glucose [Mass/Vol] 217 mg/dL Critically high 74-106 [facility] Comment on above: Performed By: #### P OCGLUC ####[facility] Vfviftfvow[address] [place] [address]Dr. Nahed Yañez Glucose [Mass/Vol] 169 mg/dL Critically high 74-106 [facility] Comment on above: Performed By: #### P OCGLUC ####[facility] [address]oymwaa54[address] [place] [address]Dr. Nahed Yañez Glucose [Mass/Vol] 297 mg/dL Critically high 74-106 [facility] Comment on above: Performed By: #### P OCGLUC ####[facility] [address] [place] [address]Dr. Nahed Yañez Glucose [Mass/Vol] 233 mg/dL Critically high 74-106 [facility] Comment on above: Performed By: #### P OCGLUC ####[facility] Fbeejyvstk[address] [place] [address]Dr. Nahed Yañez PROF 14(COMP METB)on 023 Albumin [Mass/Vol] 3.0 g/dL Critically low 3.4-5.0 [facility] Comment on above: Performed By: #### JUDY Castro CMP ####[facility] Jqlkkmdlcm[address] [place], [place] [address]Dr. Nahed Yañez Albumin/Globulin [Mass ratio] 0.8 {ratio} Normal [facility] Comment on above: Performed By: #### JUDY Castro CMP ####[facility] Qbinbtzrht27[address] [place], [place] [address]Dr. Nahed Yañez ALP [Catalytic activity/Vol] 83 U/L Normal 46-116 [facility] Comment on above: Performed By: #### JUDY Castro CMP ####[facility] Zdailjmfbt9[address] [place], [place] [address]Dr. Nahed Yañez ALT [Catalytic activity/Vol] 21 U/L Normal 14-59 [facility] Comment on above: Performed By: #### JUDY Castro CMP ####[facility] Tdouvtwuat9[address] [place], [place] [address]Dr. Nahed Yañez Anion gap [Moles/Vol] 14.8 mmol/L Normal [facility] Comment on above: Performed By: #### JUDY Castro CMP ####[facility] Imlooeloni12[address] [place], [place] [address]Dr. Nahed Yañez AST [Catalytic activity/Vol] 13 U/L Critically low 15-37 [facility] Comment on above: Performed By: #### JUDY Castro CMP ####[facility] Vsnavlykue84[address] [place], [place] [address]Dr. Nahed Yañez Bilirubin [Mass/Vol] 0.2 mg/dL Normal 0.2-1.0 [facility] Comment on above: Performed By: #### JUDY Castro CMP ####[facility] Etwfumttjs[address] [place], [place] [address]Dr. Nahed Yañez Calcium [Mass/Vol] 9.2 mg/dL Normal 8.5-10.1 [facility] Comment on above: Performed By: #### M G, JUDY, CMP ####[facility] Yinflrcivj[address] [place] [address]Dr. Nahed Yañez Chloride [Moles/Vol] 101 mmol/L Normal 98-107 [facility] Comment on above: Performed By: #### JUDY Castro, CMP ####[facility] [address]sgotpklab[address] [place] [id number]. Rosemarieashley Yañez CO2 [Moles/Vol] 26.5 mmol/L Normal 21.0-32.0 [facility] Comment on above: Performed By: #### JUDY Castro, CMP ####[facility] Rguludevum[address] [place] [address]Dr. Rosemarieashley Yañez Creatinine [Mass/Vol] 1.04 mg/dL Critically high 0.55-1.02 [facility] Comment on above: Performed By: #### JUDY Castro, CMP ####[facility] Tfwrkhfknx25[address] [place], [place] [address]Dr. Rosemarieashley Otilio EGFR-AF SOLOMON ISLANDER >60 Normal >=60 [facility] Comment on above: Performed By: #### JUDY Castro, CMP ####[facility] Szkwavumjq[address] [place], [place] [address]Dr. Rosemarieashley Otilio EGFR-NON AF SOLOMON ISLANDER 54 mL/min/1.73m2 Critically low >=60 [facility] Comment on above: Performed By: #### JUDY Castro, CMP ####[facility] Wbphacazem[address] [place], [place] [address]Dr. Nahed Yañez Globulin (S) [Mass/Vol] 3.6 g/dL Normal [facility] Comment on above: Performed By: #### JUDY Castro, CMP ####[facility] Z[address]ahqtwfs[address] [place] [address]Dr. Nahed Yañez Glucose [Mass/Vol] 171 mg/dL Critically high 74-106 [facility] Comment on above: Performed By: #### JUDY Castro, CMP ####[facility] Lmblebopht[address] [place] [address]Dr. Nahed Yañez Potassium [Moles/Vol] 3.3 mmol/L Critically low 3.5-5.1 [facility] Comment on above: Performed By: #### JUDY Castro CMP ####[facility] Hzyeqeosui[address] [place], [place] [address]Dr. Nahed Yañez Protein [Mass/Vol] 6.6 g/dL Normal 6.4-8.2 [facility] Comment on above: Performed By: #### JUDY Castro CMP ####[facility] Zvfrlrrgat[address] [place], [place] [address]Dr. Nahed Yañez Sodium [Moles/Vol] 139 mmol/L Normal 136-145 [facility] Comment on above: Performed By: #### JUDY Castro CMP ####[facility] Yfevjdzyxo2[address] [place], [place] [address]Dr. Nahed Yañez Urea nitrogen [Mass/Vol] 23.0 mg/dL Critically high 7.0-18.0 [facility] Comment on above: Performed By: #### JUDY Castro CMP ####[facility] Tgqnyowwgc14[address] [place], [place] [address]Dr. Nahed Yañez Urea nitrogen/Creatinine [Mass ratio] 22.1 mg/mg Normal [facility] Comment on above: Performed By: #### JUDY Castro CMP ####[facility] Sjsfkbhpcr[address] [place], [place] [address]Dr. Nahed Yañez THEOPHYLLINEon 07-31-2022 THEOPHYLLINE 14.2 ug/mL Normal 10.0-20.0 [facility] Comment on above: Performed By: #### JUDY Castro CMP ####[facility] Xgkdkoubwq[address] [place], [place] [address]Dr. Nahed Yañez BLOOD CULTURE ID PANELon A. baumannii Not detected Normal NOT DETECTED [facility] Comment on above: Performed By: #### B CID2 ####[facility] Cnalqbkbuj[address] [place], [place] [address]Dr. Nahed Yañez Bacteriodes fragilis Not detected Normal NOT DETECTED [facility] Comment on above: Performed By: #### B CID2 ####[facility] Qx[address] [place] [phone]. Yilan Yañez BCID CONTROLS PASSED Normal [facility] Comment on above: Performed By: #### B CID2 ####[facility] Ftkdmeoulc[address] [place] [phone]. Yiashley Yañez BCIDBTHD BLOOD CULTURE BOTTLE INFORMATION [facility] Comment on above: Performed By: #### B CID2 ####[facility] Sxswbxbgbg[address] [place] [phone]. Yiashley Yañez BCIDHD1 ANTIMICROBIAL RESISTANCE GENES [facility] Comment on above: Performed By: #### B CID2 ####[facility] P[address]wjwmuf[address] [place] [address]Dr. Yiashley Yañez BCIDHD2 SEE BELOW [facility] Comment on above: Result Comment: Note : Antimicrobial resitance can occur via multiple mechanisms. A Not Detected result for the [employer] antomicrobial resistance gene assays does not indicate antimicrobial susceptibility. Subculturing is required for species identification and susceptibility testing of isolates. Performed By: #### B CID2 ####[facility] Nssbcwbafp[address] [place] [phone]. Yiashley Yañez BCIDHD3 Positive [facility] Comment on above: Performed By: #### B CID2 ####[facility] Gtunlvdsqu[address] [place] [phone]. Yiashley Yañez BCIDHD4 Negative [facility] Comment on above: Performed By: #### B CID2 ####[facility] Vrtgggtjkb[address] [place] [phone]. Yiashley Yañez BCIDHD5 YEAST Normal [facility] Comment on above: Performed By: #### B CID2 ####[facility] G[address]hajrfs[address] [place] [address]Dr. Yilan Yañez Bottle Set: Set 2 [facility] Comment on above: Performed By: #### B CID2 ####[facility] Djqiduycpj[address] [place] [address]Dr. Yilan Yañez Bottle: Pediatric Normal [facility] Comment on above: Performed By: #### B CID2 ####[facility] Lilfbhdbsi9[address] [place] [phone]. Yilan Yañez C. neoformans/gattii Not detected Normal NOT DETECTED [facility] Comment on above: Performed By: #### B CID2 ####[facility] Hqfukhzlfs[address] [place] [phone]. Yilan Yañez Sil albicans Not detected Normal NOT DETECTED [facility] Comment on above: Performed By: #### B CID2 ####[facility] Shejwfajds[address] [place] [address]Dr. Yilan Yañez Sil auris Not detected Normal NOT DETECTED [facility] Comment on above: Performed By: #### B CID2 ####[facility] Tsylugkftp[address] [place], [place] [address]Dr. Yilan Yañez Sil glabrata Not detected Normal NOT DETECTED The [facility] Comment on above: Performed By: #### B CID2 ####[facility] Bhcfydttaq5946[address] [place], [place] [address]Dr. Yilan Yañez Sil Krusei Not detected Normal NOT DETECTED [facility] Comment on above: Performed By: #### B CID2 ####[facility] Bnfrdsmnhg4630[address] [place], [place] [address]Dr. Yilan Yañez Sil Parapsilosis Not detected Normal NOT DETECTED [facility] Comment on above: Performed By: #### B CID2 ####[facility] Bcerinpvox[address] [place] [address]Dr. Yilan Yañez Sil Tropicalis Not detected Normal NOT DETECTED [facility] Comment on above: Performed By: #### B CID2 ####[facility] Tmsyodbwqf75[address] [place] [phone]. Yiashley Yañez CTX-M Resistant Gene Not Applicable Normal NOT DETECTE D [facility] Comment on above: Performed By: #### B CID2 ####[facility] Fpsiyjythg[address] [place] [address]Dr. Yilan Yañez E. Cloacae complex Not detected Normal NOT DETECTED [facility] Comment on above: Performed By: #### B CID2 ####[facility] Ojzarlqluo75[address] [place], [place] [address]Dr. Nahed Yañez E. faecalis Not detected Normal NOT DETECTED [facility] Comment on above: Performed By: #### B CID2 ####[facility] Movzfteqcg8770[address] [place], [place] [address]Dr. Nahed Yañez E. faecium Not detected Normal NOT DETECTED [facility] Comment on above: Performed By: #### B CID2 ####[facility] Hjcuscplnm[address]17[address] [place], [place] [address]Dr. Nahed Yañez Enterobacteriaceae Not detected Normal NOT DETECTED [facility] Comment on above: Performed By: #### B CID2 ####[facility] Zqeqshclri384[address] [place], [place] [address]Dr. Nahed Yañez Escherichia coli Not detected Normal NOT DETECTED [facility] Comment on above: Performed By: #### B CID2 ####[facility] Dcpytqhnhj5824[address] [place], [place] [address]Dr. Rosemarieashley Yañez H. influenzae Not detected Normal NOT DETECTED [facility] Comment on above: Performed By: #### B CID2 ####[facility] Xscmnwilpj5038[address] [place], [place] [address]Dr. Nahed Yañez IMP Resistant Gene Not Applicable Normal NOT DETECTED The [facility] Comment on above: Performed By: #### B CID2 ####[facility] Xhgvxmlawr8678[address] [place], [place] [address]Dr. Nahed Yañez K. oxytoca Not detected Normal NOT DETECTED [facility] Comment on above: Performed By: #### B CID2 ####[facility] Xfwcsdabsy0054[address] [place], [place] [address]Dr. Nahed Yañez K. pneumoniae Not detected Normal NOT DETECTED [facility] Comment on above: Performed By: #### B CID2 ####[facility] Rqufndfkjf506[address] [place], [place] [address]Dr. Nahed Yañez Klebsiella aerogenes Not detected Normal NOT DETECTED The [facility] Comment on above: Performed By: #### B CID2 ####[facility] Urccmndern0740[address] [place], [place] [address]Dr. Nahed Yañez KPC Resistant Gene Not detected Normal NOT DETECTED [facility] Comment on above: Performed By: #### B CID2 ####[facility] Psipwhrfjl038[address] [place] [address]Dr. Nahed Yañez List. monocytogenes Not detected Normal NOT DETECTED [facility] Comment on above: Performed By: #### B CID2 ####[facility] Dwyalzbtiw1907[address] [place], [place] [address]Dr. Nahed Yañez Mcr-1 Resistant Gene Not Applicable Normal NOT DETECTE D [facility] Comment on above: Performed By: #### B CID2 ####[facility] Iprstkwtoh7[address] [place], [place] [address]Dr. Nahed Yañez mecA/C Not Applicable Normal NOT DETECTED [facility] Comment on above: Performed By: #### B CID2 ####[facility] Cbuqvdqiwp5618[address] [place], [place] [address]Dr. Nahed Yañez mecA/C MREJ Not Applicable Normal NOT DETECTED [facility] Comment on above: Performed By: #### B CID2 ####[facility] Uyepyfcdcd[address] [place], [place] [address]Dr. Nahed Yañez N. meningitidis Not detected Normal NOT DETECTED [facility] Comment on above: Performed By: #### B CID2 ####[facility] Kdzwoogrlw6486[address] [place], [place] [address]Dr. Nahed Yañez NDM Resistant Gene Not Applicable Normal NOT DETECTED [facility] Comment on above: Performed By: #### B CID2 ####[facility] Okckgaaoqe5666[address] [place], [place] [address]Dr. Nahed Yañez Oxa-48-like Not Applicable Normal NOT DETECTED [facility] Comment on above: Performed By: #### B CID2 ####[facility] Lnreordagh7[address] [place], [place] [address]Dr. Nahed Yañez Proteus Not detected Normal NOT DETECTED [facility] Comment on above: Performed By: #### B CID2 ####[facility] Ivyemxrncu227[address] [place], [place] [address]Dr. Nahed Yañez Pseud. aeruginosa Not detected Normal NOT DETECTED [facility] Comment on above: Performed By: #### B CID2 ####[facility] Wnxmdjlnwh87[address] [place] [address]Dr. Nahed Yañez S. maltophilia Not detected Normal NOT DETECTED [facility] Comment on above: Performed By: #### B CID2 ####[facility] Amiwexdovp3552 [place] [address]Dr. Nahed Yañez Salmonella Not detected Normal NOT DETECTED [facility] Comment on above: Performed By: #### B CID2 ####[facility] Eenncsmefg9166[address] [place], [place] [address]Dr. Nahed Yañez Seratia marcescens Not detected Normal NOT DETECTED [facility] Comment on above: Performed By: #### B CID2 ####[facility] Tifybpioeg8109[address] [place], [place] [address]Dr. Nahed Yañez Site: R AC Normal [facility] Comment on above: Performed By: #### B CID2 ####[facility] Taolwtmnby9094[address] [place], [place] [address]Dr. Nahed Yañez Staph. aureus Not detected Normal NOT DETECTED [facility] Comment on above: Performed By: #### B CID2 ####[facility] Rwfkppvapf026[address] [place], [place] [address]Dr. Nahed Yañez Staph. epidermidis Not detected Normal NOT DETECTED [facility] Comment on above: Performed By: #### B CID2 ####[facility] Gmahldnypw7590[address] [place], [place] [address]Dr. Nahed Yañez Staph. lugdunensis Not detected Normal NOT DETECTED [facility] Comment on above: Performed By: #### B CID2 ####[facility] Sdaasmujxr3224[address] [place], [place] [address]Dr. Nahed Yañez Staphylococcus Detected Critically abnormal NOT DETECTED [facility] Comment on above: Performed By: #### B CID2 ####[facility] Vkdccshmap0648[address] [place], [place] [address]Dr. Nahed Yañez Strep. agalactiae Not detected Normal NOT DETECTED [facility] Comment on above: Performed By: #### B CID2 ####[facility] Eomzfojnca[address] [place] [address]Dr. Nahed Otilio Strep. pneumoniae Not detected Normal NOT DETECTED [facility] Comment on above: Performed By: #### B CID2 ####[facility] Dnvlsruleu4802 [place] [address]Dr. Nahed Otilio Strep. pyogenes Not detected Normal NOT DETECTED [facility] Comment on above: Performed By: #### B CID2 ####[facility] Gusggxrycf0628[address] [place], [place] [address]Dr. Nahed Otilio Streptococcus Not detected Normal NOT DETECTED [facility] Comment on above: Performed By: #### B CID2 ####[facility] Nfbudonnzr1708[address] [place], [place] [address]Dr. Nahed Otilio Tucker/B Resist. Gene Not detected Normal NOT DETECTED [facility] Comment on above: Performed By: #### B CID2 ####[facility] Rwybaiakrw213[address] [place], [place] [address]Dr. Nahed Otilio VIM Resistant Gene Not Applicable Normal NOT DETECTED [facility] Comment on above: Performed By: #### B CID2 ####[facility] Opumfusdks6487[address] [place], [place] [address]Dr. Rosemarieashley Otilio CARDIAC FRANCISCO 3-6on 3 CK [Catalytic activity/Vol] 25 U/L Critically low 26-192 [facility] Comment on above: Performed By: #### C MREP ####[facility] Xxkqqaujxk[address] [place], [place] [address]Dr. Nahed Otilio CK.MB [Mass/Vol] ng/mL Normal <=3.60 [facility] Comment on above: Performed By: #### C MREP ####[facility] Lvgunrxiev166[address] [place], [place] [address]Dr. Nahed Otilio HSTROP 35.8 pg/mL Normal 4.0-51.3 [facility] Comment on above: Result Comment: CUT- OFF POINTS HAVE BEEN ESTABLISHED BASED ON THE FOURTH UNIVERSAL DEFINITIONS OF MYOCARDIALINFARCTION. THE UPPER REFERENCE LIMIT (URL) OF TROPONIN, DEFINED THE 99TH PERCENTILE OFcTnI DISTRIBUTION IN A REFERENCE POPULATION, HAS BEEN CONFIRMED THE DECISION THRESHOLDFOR MT DIAGNOSIS. Performed By: #### C MREP ####[facility] Smblegqvqh5[address] [place] [address]Dr. Nahed Otilio CK [Catalytic activity/Vol] 28 U/L Normal 26-192 [facility] Comment on above: Performed By: #### C MREP ####[facility] Yupmydijcc28[address] [place] [address]Dr. Nahed Yañez CK.MB [Mass/Vol] ng/mL Normal <=3.60 [facility] Comment on above: Performed By: #### C MREP ####[facility] Tbaswpyfzf[address] [place], [place] [address]Dr. Rosemarieashley Yañez HSTROP 36.8 pg/mL Normal 4.0-51.3 [facility] Comment on above: Result Comment: CUT- OFF POINTS HAVE BEEN ESTABLISHED BASED ON THE FOURTH UNIVERSAL DEFINITIONS OF MYOCARDIALINFARCTION. THE UPPER REFERENCE LIMIT (URL) OF TROPONIN, DEFINED THE 99TH PERCENTILE OFcTnI DISTRIBUTION IN A REFERENCE POPULATION, HAS BEEN CONFIRMED THE DECISION THRESHOLDFOR MT DIAGNOSIS. Performed By: #### C MREP ####[facility] Grbpcpplab4[address] [place], [place] [address]Dr. Rosemarieashley Yañez CBC AUTO DIFFon 07-30-2022 BASO # 0.0 103/ul Normal 0.0-0.1 [facility] Comment on above: Performed By: #### C BC ####[facility] Rwddikwzcd7[address] [place], [place] [address]Dr. Nahed Yañez Basophils/100 WBC (Bld) 0.1 % Critically low 0.2-2.0 [facility] Comment on above: Performed By: #### C BC ####[facility] Ornenblouv[address] [place], [place] [address]Dr. Nahed Yañez EO # 0.0 103/ul Normal 0.0-0.7 [facility] Comment on above: Performed By: #### C BC ####[facility] Bxgtbfbgqk828[address] [place], [place] [address]Dr. Nahed Yañez Eosinophils/100 WBC (Bld) 0.0 % Critically low 0.9-7.0 [facility] Comment on above: Performed By: #### C BC ####[facility] Hxyoyrseve2337[address] [place], [place] [address]DrShaun Yañez Erythrocyte distribution width (RBC) [Ratio] 14.4 % Normal 11.0-15.0 [facility] Comment on above: Performed By: #### C BC ####[facility] Bfobcgrmpx7601[address] [place], [place] [address]DrShaun Yañez Hematocrit (Bld) [Volume fraction] 37.7 % Normal 36.0-48.0 [facility] Comment on above: Performed By: #### C BC ####[facility] Zbevuppmjz18[address] [place], [place] [address]DrShaun Yañez Hemoglobin (Bld) [Mass/Vol] 12.1 g/dL Normal 12.0-16.0 [facility] Comment on above: Performed By: #### C BC ####[facility] Wzxzzvjypk[address] [place], [place] [address]DrShaun Yañez IG # 0.07 10e3/ul Critically high 0.00-0.03 [facility] Comment on above: Performed By: #### C BC ####[facility] Mgkgokstia[address] [place], [place] [address]DrShaun Yañez IG % 0.5 % Normal 0.0-0.5 [facility] Comment on above: Performed By: #### C BC ####[facility] Ltggsfzqvy25[address] [place], [place] [address]DrShaun Yañez LYMPH # 1.0 103/ul Critically low 1.2-3.8 [facility] Comment on above: Performed By: #### C BC ####[facility] Utmawngarl[address] [place], [place] [address]DrShaun Yañez Lymphocytes/100 WBC (Bld) 7.6 % Critically low 20.5-60.0 [facility] Comment on above: Performed By: #### C BC ####[facility] Inylerpstb[address] [place], [place] [address]DrShaun Yañez MANUAL DIFF REQ NO Normal [facility] Comment on above: Performed By: #### C BC ####[facility] Onkoovucmp[address] [place] [address]DrShaun Nahed Otilio MCH (RBC) [Entitic mass] 28.8 pg Normal 26.7-34.0 [facility] Comment on above: Performed By: #### C BC ####[facility] [facility] [address] [place] [address]DrShaun Yañez MCHC (RBC) [Mass/Vol] 32.1 g/dL Normal 29.9-35.2 The [facility] Comment on above: Performed By: #### C BC ####[facility] T[address]zbdvmxu[address] [place], [place] [address]DrShaun Yañez MCV (RBC) [Entitic vol] 89.8 fL Normal 81.0-99.0 The [facility] Comment on above: Performed By: #### C BC ####[facility] Wbdzssuhuv[address] [place], [place] [address]DrShaun Yañez MONO # 0.2 103/ul Critically low 0.3-0.8 [facility] Comment on above: Performed By: #### C BC ####[facility] Oyamdqnntm[address] [place], [place] [address]DrShaun Yañez Monocytes/100 WBC (Bld) 1.5 % Critically low 1.7-12.0 The [facility] Comment on above: Performed By: #### C BC ####[facility] Gqjnlukokq[address] [place], [place] [address]DrShaun Yañez NEUT # 11.7 103/ul Critically high 1.4-6.5 The [facility] Comment on above: Performed By: #### C BC ####[facility] Fmcjsvxvfr[address] [place], [place] [address]DrShaun Yañez Neutrophils/100 WBC (Bld) 90.3 % Critically high 43.0-75.0 The [facility] Comment on above: Performed By: #### C BC ####[facility] Brbrugcrwg7[address] [place], [place] [address]Dr. Nahed Yañez Platelet mean volume (Bld) [Entitic vol] 9.9 fL Normal 9.5-13.5 [facility] Comment on above: Performed By: #### C BC ####[facility] [address] [place] [address]Dr. Nahed Yañez PLT 319 103/ul Normal 150-450 The [facility] Comment on above: Performed By: #### C BC ####[facility] Pnmraehbmd9525[address] [place], [place] [address]Dr. Nahed Yañez RBC 4.20 106/ul Normal 4.20-5.40 [facility] Comment on above: Performed By: #### C BC ####[facility] Lbqharqcip0960[address] [place], [place] [address]Dr. Nahed Yañez WBC 13.0 103/ul Critically high 4.0-11.0 The [facility] Comment on above: Performed By: #### C BC ####[facility] Gdlrkcdrcj27[address] [place], [place] [address]Dr. Nahed Yañez CULTURE BLOODon 07-30-2022 Microscopic examination of blood, culture Culture Observations: NO GROWTH AT 5 DAYS. Normal The [facility] Comment on above: Performed By: #### B LDCX1 ####[facility] Zjorvauwrf87[address] [place], [place] [address]Dr. Nahed Yañez CULTURE SPUTUMon 07-30-2022 CULTURE SPUTUM Culture Observations : NORMAL RESPIRATORY MIGUEL. Normal The [facility] Comment on above: Performed By: #### S PUTCX ####[facility] Xjlftlzpsx[address] [place], [place] [address]Dr. Nahed Yañez CULTURE URINEon 07-30-2022 CULTURE URINE Culture Observations : MODERATE GROWTH OF MIXED GENITAL MIGUEL. NO POTENTIAL PATHOGENS SEEN. Normal [facility] Comment on above: Performed By: #### U RCX ####[facility] Fichxdulzg927[address] [place], [place] [address]Dr. Nahed Yañez Covid-19 PCR (CVDTB)on 07-12 SARS-CoV-2 (COVID-19) RNA MIRNA+probe Ql (Unsp spec) Not detected Normal NOT DETECTED The [facility] Comment on above: Result Comment: When [...] for this test is supported by the [place] of Health and Human Service's declaration that [...] longer be used). Performed By: #### [facility] ####[facility] Lxldmcpxry8848[address] [place], [place] [address]Dr. Nahed Yañez ER URINE PROFILEon 3 Bilirubin Ql (U) Negative Normal NEGATIVE [facility] Comment on above: Performed By: #### YARELIS DOVE ####[facility] Kyjsqppvzt4[address] [place], [place] [address]Dr. Nahed Yañez Clarity (U) CLEAR Normal CLEAR The [facility] Comment on above: Performed By: #### NUNU DOVERO ####[facility] Juzaoffrff6794[address] [place], [place] [address]Dr. Nahed Yañez Color (U) LT. YELLOW Normal YELLOW The [facility] Comment on above: Performed By: #### MYLA DOVEICRO ####[facility] Hyziouazak7[address] [place], [place] [address]DrShaun Yañez ERUAHD A micrscopic examination will be performed if indicated. Normal The [facility] Comment on above: Performed By: #### NUNU DOVERO ####[facility] Ydhiaicutk64[address] [place], [place] [address]DrShaun Yañez Glucose Ql (U) 500 mg/dl Abnormal NEGATIVE [facility] Comment on above: Performed By: #### NUNU DOVERO ####[facility] [address] [place] [address]Dr. Nahed Yañez Hemoglobin Ql (U) Negative Normal NEGATIVE The [facility] Comment on above: Performed By: #### NUNU DOVERO ####[facility] [address]pawqf[address] [place] [address]Dr. Nahed Yañez Ketones Ql (U) Negative Normal NEGATIVE [facility] Comment on above: Performed By: #### NUNU DOVERO ####[facility] Cgaqbrjfas[address] [place], [place] [address]Dr. Nahed Yañez LEUKOCYTES TRACE Abnormal NEGATIVE [facility] Comment on above: Performed By: #### NUNU DOVERO ####[facility] Mxjdmfucgd9[address] [place], [place] [address]Dr. Nahed Yañez Nitrite Ql (U) Negative Normal NEGATIVE [facility] Comment on above: Performed By: #### NUNU DOVERO ####[facility] Qrpztsgaou7549[address] [place], [place] [address]Dr. Nahed Yañez pH (U) 6.0 [pH] Normal 5-9 The [facility] Comment on above: Performed By: #### NUNU DOVERO ####[facility] Xnxsrzttko8179[address] [place], [place] [address]Dr. Nahed Yañez SPEC GRAVITY >=1.030 Abnormal 1.005-<=1.02 5 The [facility] Comment on above: Performed By: #### NUNU DOVERO ####[facility] Dfnaedoqni7587[address] [place], [place] [address]Dr. Nahed Yañez UA PROTEIN Negative Normal NEGATIVE/ TRACE The [facility] Comment on above: Performed By: #### NUNU DOVERO ####[facility] Sgegtejdke5346[address] [place], [place] [address]Dr. Nahed Yañez UR MICRO IND INDICATED Normal The [facility] Comment on above: Performed By: #### NUNU DOVERO ####[facility] [address] [place] [address]Dr. Nahed Yañez Urobilinogen Qn (U) 0.2 {Alem'U}/dL Normal 0.2 - 1. 0 The [facility] Comment on above: Performed By: #### E YARELIS ALCARAZ ####[facility] Pwhqdigear[address] [place], [place] [address]Dr. Nahed Yañez INFLUENZA A AND B AGon 07-30 INFLUANEGH SEE BELOW Normal The [facility] Comment on above: Result Comment: Nega tive for Flu A protein angiten. Infection due to Flu A cannot be ruled out. Flu A angiten in the sample may be below the detection limit of the test. Performed By: #### I NFLUAB ####[facility] Wefxejrivl[address] [place] [address]. Nahed Yañez INFLUBNEGH SEE BELOW Normal The [facility] Comment on above: Result Comment: Nega tive for Flu B protein antigen. Infection due to Flu B cannot be ruled out. Flu B antigen in the sample may be below the detection limit of the test. Performed By: #### I NFLUAB ####[facility] W[address]xvrq[address] [place] [address]. Nahed [facility] INFLUENZA A AG Negative Normal NEGATIVE SEE COMMENT The [facility] Comment on above: Performed By: #### I NFLUAB ####[facility] Ebjuwlgagq[address] [place], [place] [address]Dr. Nahed [facility] INFLUENZA B AG Negative Normal NEGATIVE SEE COMMENT The [facility] Comment on above: Performed By: #### I NFLUAB ####[facility] Mqvujdbeic4[address] [place], [place] [address]Dr. Nahed Yañez LACTATE/LACTIC ACIDon 2022 Lactate [Moles/Vol] 2.5 mmol/L Critically high 0.4-2.0 [facility] Comment on above: Performed By: #### L ACT ####[facility] Ubgisnkxvz[address]26[address] [place], [place] [address]Dr. Nahed Yañez Lactate [Moles/Vol] 3.3 mmol/L Critically high 0.4-2.0 The [facility] Comment on above: Performed By: #### L ACT ####[facility] [address] [place] [address]Dr. Nahed Yañez Lactate [Moles/Vol] 2.7 mmol/L Critically high 0.4-2.0 [facility] Comment on above: Performed By: #### L ACT ####[facility] Illsz[address]nxr[address] [place] [address]Dr. Nahed Yañez Lactate [Moles/Vol] 2.8 mmol/L Critically high 0.4-2.0 [facility] Comment on above: Performed By: #### L ACT ####[facility] Xsemwtbezn2986[address] [place], [place] [address]Dr. Nahed Yañez MAGNESIUMon 07-30-2022 Magnesium [Mass/Vol] 1.9 mg/dL Normal 1.8-2.4 [facility] Comment on above: Performed By: #### M G, CMP ####[facility] Ktdjblotkj15[address] [place], [place] [address]Dr. Nahed Yañez POINT OF CARE GLUCOSEon 07-12 Glucose [Mass/Vol] 220 mg/dL Critically high 74-106 [facility] Comment on above: Performed By: #### P OCGLUC ####[facility] Yijsdqskiu43[address] [place], [place] [address]Dr. Nahed Yañez Glucose [Mass/Vol] 162 mg/dL Critically high 74-106 [facility] Comment on above: Result Comment: Kaycee clemons Meter Performed By: #### P OCGLUC ####[facility] Zccjezracs[address] [place], [place] [address]Dr. Nahed Otilio PROF 14(COMP METB)on 023 Albumin [Mass/Vol] 2.9 g/dL Critically low 3.4-5.0 Th [facility] Comment on above: Performed By: #### M Teresa, CMP ####[facility] Qqyuwnalal4840[address] [place], [place] [address]Dr. Nahed Yañez Albumin/Globulin [Mass ratio] 0.8 {ratio} Normal [facility] Comment on above: Performed By: #### M Teresa, CMP ####[facility] [address]jm[address] [place] [id number]. Nahed Yañez ALP [Catalytic activity/Vol] 94 U/L Normal 46-116 [facility] Comment on above: Performed By: #### Pablo G, CMP ####[facility] Y[address]suqkqsw[address] [place] [id number]. Nahed Yañez ALT [Catalytic activity/Vol] 22 U/L Normal 14-59 [facility] Comment on above: Performed By: #### Pablo Moore, CMP ####[facility] B[address]zdwdyur[address] [place] [phone]. Nahed Yañez Anion gap [Moles/Vol] 12.4 mmol/L Normal [facility] Comment on above: Performed By: #### Pablo Moore, CMP ####[facility] Llvvjokzsb8274[address] [place], [place] [address]Dr. Nahed Yañez AST [Catalytic activity/Vol] 18 U/L Normal 15-37 [facility] Comment on above: Performed By: #### Pablo Moore, CMP ####[facility] C[address] [place], [place] [address]Dr. Nahed Yañez Bilirubin [Mass/Vol] 0.1 mg/dL Critically low 0.2-1.0 [facility] Comment on above: Performed By: #### Pablo Moore, CMP ####[facility] [address]dbufid[address] [place] [phone]. Nahed Otilio Calcium [Mass/Vol] 8.9 mg/dL Normal 8.5-10.1 [facility] Comment on above: Performed By: #### Pablo Moore, CMP ####[facility] [address]fse[address] [place] [phone]. Nahed Yañez Chloride [Moles/Vol] 99 mmol/L Normal 98-107 [facility] Comment on above: Performed By: #### Pablo Moore, CMP ####[facility] Ahoxbxwbmm[address] [place], [place] [address]Dr. Nahed Yañez CO2 [Moles/Vol] 26.0 mmol/L Normal 21.0-32.0 [facility] Comment on above: Performed By: #### Pablo Moore, CMP ####[facility] Umcfcruriu[address] [place] [phone]. Nahed Otilio Creatinine [Mass/Vol] 1.16 mg/dL Critically high 0.55-1.02 [facility] Comment on above: Performed By: #### M G, CMP ####[facility] U[address]rysp[address] [place] [phone]. Nahed Yañez EGFR-AF [place]ER 58 mL/min/1.73m2 Critically low >=60 [facility] Comment on above: Performed By: #### M G, CMP ####[facility] N[address]sirpf[address] [place] [phone]. Nahed Yañez EGFR-NON AF [place] 47 mL/min/1.73m2 Critically low >=60 [facility] Comment on above: Performed By: #### M G, CMP ####[facility] Wdgddvcfkz4[address] [place], [place] [address]Dr. Nahed Yañez Globulin (S) [Mass/Vol] 3.7 g/dL Normal [facility] Comment on above: Performed By: #### M G, CMP ####[facility] Lawwdposuv7304[address] [place], [place] [address]Dr. Nahed Yañez Glucose [Mass/Vol] 267 mg/dL Critically high 74-106 T [facility] Comment on above: Performed By: #### M G, CMP ####[facility] Mobreynypr[address] [place], [place] [address]Dr. Nahed Yañez Potassium [Moles/Vol] 4.4 mmol/L Normal 3.5-5.1 [facility] Comment on above: Performed By: #### M G, CMP ####[facility] Rrrbldhajj[address] [place], [place] [address]Dr. Nahed Yañez Protein [Mass/Vol] 6.6 g/dL Normal 6.4-8.2 [facility] Comment on above: Performed By: #### M G, CMP ####[facility] Yvqlkwqjqk[address] [place], [place] [address]Dr. Nahed Yañez Sodium [Moles/Vol] 133 mmol/L Critically low 136-145 Th e [facility] Comment on above: Performed By: #### M G, CMP ####[facility] Kgkzsanvhj[address] [place], [place] [address]Dr. Rosemarieashley Yañez Urea nitrogen [Mass/Vol] 33.0 mg/dL Critically high 7.0-18.0 The [facility] Comment on above: Performed By: #### M G, CMP ####[facility] Dqxekevoql[address] [place], [place] [address]Dr. Nahed Yañez Urea nitrogen/Creatinine [Mass ratio] 28.4 mg/mg Normal [facility] Comment on above: Performed By: #### M G, CMP ####[facility] Dqozgesxxc9257[address] [place], [place] [address]Dr. Nahed Yañez SPUTUM GRAM STAINon 07-31-19 COMMENTS Normal [facility] Comment on above: Performed By: #### S PUTGS ####[facility] Cvsnkocxlq[address] [place], [place] [address]Dr. Nahed Yañez DIPHTHEROIDS Normal The [facility] Comment on above: Performed By: #### S PUTGS ####[facility] Rydlwbazqn75[address] [place], [place] [address]Dr. Nahed Yañez EPITHELIALS <25 Normal The [facility] Comment on above: Performed By: #### S PUTGS ####[facility] Dpmwnrwtbp4[address] [place], [place] [address]Dr. Nahed Yañez FUNGAL ELEMENTS Normal The [facility] Comment on above: Performed By: #### S PUTGS ####[facility] Utqawrtxer[address] [place], [place] [address]Dr. Nahed Yañez GRAM NEG BACILLI Normal [facility] Comment on above: Performed By: #### S PUTGS ####[facility] Cfeixvzzcs16[address] [place], [place] [address]Dr. Nahed Yañez GRAM NEG DIPPLOCOCCI Normal The [facility] Comment on above: Performed By: #### S PUTGS ####[facility] Bdrzbrufue[address] [place], [place] [address]Dr. Nahed Yañez GRAM POS BACILLI FEW Normal [facility] Comment on above: Performed By: #### S PUTTAYLOR ####[facility] Byesrtzznk[address] [place] [address]Dr. Nahed Yañez GRAM POSITIVE COCCI FEW Normal The [facility] Comment on above: Performed By: #### S VALDEMARGS ####[facility] Wplhgvychz7[address] [place] [address]Dr. Nahed Yañez WBC (Bld) [#/Vol] 10*3/uL Normal [facility] Comment on above: Performed By: #### S RICKY ####[facility] [address]mzhgep[address] [place] [address]Dr. Nahed Yañez URINE MICROSCOPIC ONLYon BACTERIA SMALL Abnormal NONE SEEN The [facility] Comment on above: Performed By: #### YARELIS DOVE ####[facility] Abpvofxkvb[address] [place], [place] [address]Dr. Nahed Yañez Bacteria identified Cx Nom (U) INDICATED Normal The [facility] Comment on above: Performed By: #### YARELIS DOVE ####[facility] Fmpygbcwbf[address] [place], [place] [address]Dr. Nahed Yañez CAST NONE SEEN Normal NONE SEEN The [facility] Comment on above: Performed By: #### YARELIS DOVE ####[facility] Erhegvevma[address] [place], [place] [address]Dr. Nahed Yañez Crystals LM Nom (Urine sed) NONE SEEN Normal NONE SEEN The [facility] Comment on above: Performed By: #### YARELIS DOVE ####[facility] [address]hb[address]hsx[address] [place] [address]Dr. Nahed Yañez Epithelial cells LM Ql (Urine sed) FEW Abnormal NONE SEEN /RARE The [facility] Comment on above: Performed By: #### YARELIS DOVE ####[facility] Bygvcvufim[address] [place], [place] [address]Dr. Nahed Yañez MUCOUS TRACE Abnormal NONE SEEN The [facility] Comment on above: Performed By: #### YARELIS DOVE ####[facility] Yxyhiaadbq[address] [place], [place] [address]Dr. Nahed Yañez RBC 0-2 Normal 0-2 The [facility] Comment on above: Performed By: #### YARELIS DOVE ####[facility] Fe[address]wl[address]uvm[address] [place] [phone]. Nahed Yañez WBC 0-2 Abnormal NONE SEEN The [facility] Comment on above: Performed By: #### YARELIS DOVE ####[facility] Bjhrhxzzto28[address] [place] [phone]. Nahed Yañez XR CHEST 1 Von 07-30-2022 XR CHEST 1 V Normal The [facility] CARDIAC FRANCISCO ADMITon 023 CK [Catalytic activity/Vol] 59 U/L Normal 26-192 [facility] Comment on above: Performed By: #### BLADIMIR SINGH ####[facility] Z[address]kwtnbsj[address] [place] [phone]. Nahed Yañez CK.MB [Mass/Vol] 0.59 ng/mL Normal <=3.60 [facility] Comment on above: Performed By: #### BLADIMIR SINGH ####[facility] Okpihdmqso7[address] [place] [phone]. Nahed Yañez HSTROP 40.7 pg/mL Normal 4.0-51.3 [facility] Comment on above: Result Comment: CUT- OFF POINTS HAVE BEEN ESTABLISHED BASED ON THE FOURTH UNIVERSAL DEFINITIONS OF MYOCARDIALINFARCTION. THE UPPER REFERENCE LIMIT (URL) OF TROPONIN, DEFINED THE 99TH PERCENTILE OFcTnI DISTRIBUTION IN A REFERENCE POPULATION, HAS BEEN CONFIRMED THE DECISION THRESHOLDFOR MT DIAGNOSIS. Performed By: #### Isabell AGRAWAL BMP ####[facility] [address]uhopvfab[address] [place] [phone]. Nahed Yañez ANDRE 89 ng/mL Critically high 9-82 The [facility] Comment on above: Performed By: #### Isabell AGRAWAL, BMP ####[facility] Zrwkfbnepd[address] [place] [phone]. Nahed Yañez CBC AUTO DIFFon 07-29-2022 BASO # 0.0 103/ul Normal 0.0-0.1 The [facility] Comment on above: Performed By: #### C BC ####[facility] [address]argsfhhu[address] [place] [phone]. Nahed Yañez Basophils/100 WBC (Bld) 0.1 % Critically low 0.2-2.0 The [facility] Comment on above: Performed By: #### C BC ####[facility] N[address]mlfaod[address] [place], [place] [phone]. Nahed Yañez EO # 0.0 103/ul Normal 0.0-0.7 [facility] Comment on above: Performed By: #### C BC ####[facility] Mbzghdoqta[address] [place], [place] [address]Dr. Nahed Yaeñz Eosinophils/100 WBC (Bld) 0.0 % Critically low 0.9-7.0 [facility] Comment on above: Performed By: #### C BC ####[facility] Tbrebgkzka[address] [place], [place] [address]Dr. Nahed Yañez Erythrocyte distribution width (RBC) [Ratio] 14.5 % Normal 11.0-15.0 [facility] Comment on above: Performed By: #### C BC ####[facility] [address]vayxbrdjk[address] [place], [place] [address]Dr. Nahed Yañez Hematocrit (Bld) [Volume fraction] 42.1 % Normal 36.0-48.0 [facility] Comment on above: Performed By: #### C BC ####[facility] Coucrdpyhs[address] [place], [place] [address]Dr. Nahed Yañez Hemoglobin (Bld) [Mass/Vol] 13.4 g/dL Normal 12.0-16.0 [facility] Comment on above: Performed By: #### C BC ####[facility] Pwnqnnymnb[address] [place], [place] [address]Dr. Nahed Yañez IG # 0.07 10e3/ul Critically high 0.00-0.03 [facility] Comment on above: Performed By: #### C BC ####[facility] [address]xwakfbrwh[address] [place], [place] [address]Dr. Nahed Yañez IG % 0.5 % Normal 0.0-0.5 The [facility] Comment on above: Performed By: #### C BC ####[facility] Hnmkyakwcc[address] [place] [phone]. Nahed Otilio LYMPH # 3.2 103/ul Normal 1.2-3.8 The [facility] Comment on above: Performed By: #### C BC ####[facility] Xlmnwvxirc[address] [place] [phone]. Nahed Otilio Lymphocytes/100 WBC (Bld) 21.2 % Normal 20.5-60.0 The [facility] Comment on above: Performed By: #### C BC ####[facility] [address] [place] [id number]. Rosemarieashley Yañez MANUAL DIFF REQ NO Normal [facility] Comment on above: Performed By: #### C BC ####[facility] Sgukxbggpd5738 [place] [id number]. Nahed Otilio MCH (RBC) [Entitic mass] 28.1 pg Normal 26.7-34.0 [facility] Comment on above: Performed By: #### C BC ####[facility] Kleelcgnwh3487 [place] [id number]. Nahed Otilio MCHC (RBC) [Mass/Vol] 31.8 g/dL Normal 29.9-35.2 [facility] Comment on above: Performed By: #### C BC ####[facility] Nmtdvxmxpp7794 [place] [id number]. Nahed Yañez MCV (RBC) [Entitic vol] 88.3 fL Normal 81.0-99.0 [facility] Comment on above: Performed By: #### C BC ####[facility] Exthsphule1296 [place] [id number]. Rosemarieashley Otilio MONO # 1.0 103/ul Critically high 0.3-0.8 The [facility] Comment on above: Performed By: #### C BC ####[facility] Zlfazsjloo5510 [place] [id number]. Nahed Yañez Monocytes/100 WBC (Bld) 6.3 % Normal 1.7-12.0 The [facility] Comment on above: Performed By: #### C BC ####[facility] Qmmrrizjog5351 [place] [id number]. Nahed Yañez NEUT # 11.0 103/ul Critically high 1.4-6.5 [facility] Comment on above: Performed By: #### C BC ####[facility] Nijuyogami0076 [place] [id number]. Nahed Yañez Neutrophils/100 WBC (Bld) 71.9 % Normal 43.0-75.0 [facility] Comment on above: Performed By: #### C BC ####[facility] Vvdwltihkh9524 [place] [address]Dr. Nahed Yañez Platelet mean volume (Bld) [Entitic vol] 9.9 fL Normal 9.5-13.5 [facility] Comment on above: Performed By: #### C BC ####[facility] Sckutxoiwk2703 [place] [address]Dr. Rosemarieashley Otilio PLT 385 103/ul Normal 150-450 [facility] Comment on above: Performed By: #### C BC ####[facility] Zryffgwbfi[address] [place], [place] [id number]. Nahed Yañez RBC 4.77 106/ul Normal 4.20-5.40 [facility] Comment on above: Performed By: #### C BC ####[facility] Cuidcewnto[address] [place], [place] [id number]. Nahed Yañez WBC 15.3 103/ul Critically high 4.0-11.0 [facility] Comment on above: Performed By: #### C BC ####[facility] Kcuspabqnn[address] [place], [place] [id number]. Nahed Yañez PROF CHEM 8 (BAS METB)on Anion gap [Moles/Vol] 13.4 mmol/L Normal [facility] Comment on above: Performed By: #### C MADM, BMP ####[facility] Tnnaisrtdq9542 [place] [id number]. Nahed Yañez Calcium [Mass/Vol] 9.5 mg/dL Normal 8.5-10.1 [facility] Comment on above: Performed By: #### C ELLAM, BMP ####[facility] Ydrkreeajh8713 [place] [address]Dr. Nahed Yañez Chloride [Moles/Vol] 101 mmol/L Normal 98-107 [facility] Comment on above: Performed By: #### C ELLAM, BMP ####[facility] Njpwmykefc5480 [place] [address]Dr. Nahed Yañez CO2 [Moles/Vol] 27.9 mmol/L Normal 21.0-32.0 [facility] Comment on above: Performed By: #### C NGHIA, BMP ####[facility] Lyyensmbsi1140 [place] [address]Dr. Nahed Yañez Creatinine [Mass/Vol] 0.91 mg/dL Normal 0.55-1.02 [facility] Comment on above: Performed By: #### C NGHIA, BMP ####[facility] Vuqfvvlged7313 [place] [address]Dr. Nahed Yañez EGFR-AF SOLOM[place] ISLANDER >60 Normal >=60 [facility] Comment on above: Performed By: #### C NGHIA, BMP ####[facility] Pledzfbwqc7359 [place] [address]Dr. Nahed Yañez EGFR-NON AF [place] ISLANDER >60 Normal >=60 The [facility] Comment on above: Performed By: #### C NGHIA, BMP ####[facility] Jmveltraee0933 [place] [address]Dr. Nahed Yañez Glucose [Mass/Vol] 100 mg/dL Normal 74-106 [facility] Comment on above: Performed By: #### C NGHIA, BMP ####[facility] Gjzmcnwxvk0562 [place] [address]Dr. Nahed Yañez Potassium [Moles/Vol] 4.3 mmol/L Normal 3.5-5.1 [facility] Comment on above: Result Comment: samp le slightly hemolized Performed By: #### C MADM, BMP ####[facility] Jvhnmlimxu4483 [place] [address]Dr. Nahed Yañez Sodium [Moles/Vol] 138 mmol/L Normal 136-145 [facility] Comment on above: Performed By: #### C NGHIA, BLADIMIR ####[facility] Gouyaqbuhs[address] [place], [place] [address]Dr. Nahed Yañez Urea nitrogen [Mass/Vol] 34.0 mg/dL Critically high 7.0-18.0 [facility] Comment on above: Performed By: #### C NGHIA, BMP ####[facility] Dpxhexyxjg8[address] [place], [place] [address]Dr. Nahed Yañez Urea nitrogen/Creatinine [Mass ratio] 37.4 mg/mg Normal [facility] Comment on above: Performed By: #### C BLADIMIR AGRAWAL ####[facility] Ngllozmjah2716[address] [place], [place] [address]Dr. Nahed Yañez BNPon 07-28-2022 Natriuretic peptide B (Bld) [Mass/Vol] 249.0 pg/mL Normal <=900.0 [facility] Comment on above: Performed By: #### B IMPORT/EXPORT ANALYST ####[facility] Kzezyanpqr4[address] [place], [place] [address]Dr. Nahed Yañez CBC AUTO DIFFon 07-28-2022 BASO # 0.0 103/ul Normal 0.0-0.1 [facility] Comment on above: Performed By: #### C BC ####[facility] Cokfflrnig[address] [place], [place] [address]Dr. Nahed Otilio Basophils/100 WBC (Bld) 0.1 % Critically low 0.2-2.0 [facility] Comment on above: Performed By: #### C BC ####[facility] Nsgjwxhgaa49[address] [place], [place] [address]Dr. Nahed Yañez EO # 0.0 103/ul Normal 0.0-0.7 [facility] Comment on above: Performed By: #### C BC ####[facility] Gwnpixpjka88[address] [place], [place] [address]Dr. Nahed Otilio Eosinophils/100 WBC (Bld) 0.0 % Critically low 0.9-7.0 [facility] Comment on above: Performed By: #### C BC ####[facility] Cnpvuaqpqq6070 [place] [phone]. Nahed Yañez Erythrocyte distribution width (RBC) [Ratio] 14.3 % Normal 11.0-15.0 [facility] Comment on above: Performed By: #### C BC ####[facility] Qafvibkjrz9272 [place] [address]Dr. Nahed aYñez Hematocrit (Bld) [Volume fraction] 38.7 % Normal 36.0-48.0 [facility] Comment on above: Performed By: #### C BC ####[facility] Fsfarsczes2084 [place] [address]Dr. Nahed Yañez Hemoglobin (Bld) [Mass/Vol] 12.2 g/dL Normal 12.0-16.0 [facility] Comment on above: Performed By: #### C BC ####[facility] Aexnqwgphe89[address] [place], [place] [address]Dr. Nahed Yañez IG # 0.06 10e3/ul Critically high 0.00-0.03 [facility] Comment on above: Performed By: #### C BC ####[facility] Anwpbhpgtu8[address] [place], [place] [address]Dr. Nahed Yañez IG % 0.5 % Normal 0.0-0.5 [facility] Comment on above: Performed By: #### C BC ####[facility] Byxopnwngn88[address] [place], [place] [address]Dr. Nahed Yañez LYMPH # 0.7 103/ul Critically low 1.2-3.8 [facility] Comment on above: Performed By: #### C BC ####[facility] Lkkgokqqrz740[address] [place], [place] [address]Dr. Nahed Yañez Lymphocytes/100 WBC (Bld) 5.7 % Critically low 20.5-60.0 [facility] Comment on above: Performed By: #### C BC ####[facility] Xgnbmvxkoe4[address] [place], [place] [address]Dr. Nahed Yañez MANUAL DIFF REQ NO Normal [facility] Comment on above: Performed By: #### C BC ####[facility] Xgvrphvywo4308 [place] [phone]. Nahed Yañez MCH (RBC) [Entitic mass] 28.2 pg Normal 26.7-34.0 [facility] Comment on above: Performed By: #### C BC ####[facility] Fjjhfelitu8680 [place] [phone]. Nahed Yañez MCHC (RBC) [Mass/Vol] 31.5 g/dL Normal 29.9-35.2 [facility] Comment on above: Performed By: #### C BC ####[facility] Urpcefkooh9209 [place] [phone]. Nahed Yañez MCV (RBC) [Entitic vol] 89.6 fL Normal 81.0-99.0 [facility] Comment on above: Performed By: #### C BC ####[facility] Wifbokpcuf7264[address] [place], [place] [address]Dr. Nahed Otilio MONO # 0.3 103/ul Normal 0.3-0.8 [facility] Comment on above: Performed By: #### C BC ####[facility] Qknhfdvhls4490 [place] [address]Dr. Rosemarieashley Yañez Monocytes/100 WBC (Bld) 2.2 % Normal 1.7-12.0 [facility] Comment on above: Performed By: #### C BC ####[facility] Vlicughuls25[address] [place], [place] [address]Dr. Nahed Yañez NEUT # 11.1 103/ul Critically high 1.4-6.5 [facility] Comment on above: Performed By: #### C BC ####[facility] Igudzdorph7[address] [place], [place] [phone]. Nahed Yañez Neutrophils/100 WBC (Bld) 91.5 % Critically high 43.0-75.0 [facility] Comment on above: Performed By: #### C BC ####[facility] Vqrmkghnsk[address] [place], [place] [address]Dr. Nahed Yañez Platelet mean volume (Bld) [Entitic vol] 10.1 fL Normal 9.5-13.5 [facility] Comment on above: Performed By: #### C BC ####[facility] Tktquweekk9743 [place], [place] [address]Wi. Nahed Yañez PLT 323 103/ul Normal 150-450 [facility] Comment on above: Performed By: #### C BC ####[facility] Exiuauncuh5240 [place], [place] [address]Ll. Rosemarieashley Yañez RBC 4.32 106/ul Normal 4.20-5.40 [facility] Comment on above: Performed By: #### C BC ####[facility] Awsieknmcy2362 [place] [phone]. Nahed Otilio WBC 12.1 103/ul Critically high 4.0-11.0 [facility] Comment on above: Performed By: #### C BC ####[facility] Ouyezsulit2239 [place] [phone]. Nahed Yañez POINT OF CARE GLUCOSEon 07-12 Glucose [Mass/Vol] 308 mg/dL Critically high 74-106 [facility] Comment on above: Performed By: #### P OCGLUC ####[facility] Qswwaxplna2666 [place] [phone]. Nahed Yañez Glucose [Mass/Vol] 341 mg/dL Critically high 74-106 [facility] Comment on above: Performed By: #### P OCGLUC ####[facility] Klrqodlybv5783 [place] [id number]. Nahed Yañez Glucose [Mass/Vol] 320 mg/dL Critically high 74-106 [facility] Comment on above: Performed By: #### P OCGLUC ####[facility] Ldiqsicrtg2637 [place] [phone]. Nahed Yañez PROF 14(COMP METB)on 023 Albumin [Mass/Vol] 3.0 g/dL Critically low 3.4-5.0 [facility] Comment on above: Performed By: #### C MP ####[facility] Jjoczaqmke9671 [place] [phone]. Nahed Yañez Albumin/Globulin [Mass ratio] 0.7 {ratio} Normal [facility] Comment on above: Performed By: #### C MP ####[facility] Hsynmmfbdp3482 [place] [address]Dr. Nahed Yañez ALP [Catalytic activity/Vol] 93 U/L Normal 46-116 [facility] Comment on above: Performed By: #### C MP ####[facility] Luzatbzcez1044 [place] [address]Dr. Nahed Yañez ALT [Catalytic activity/Vol] 15 U/L Normal 14-59 [facility] Comment on above: Performed By: #### C MP ####[facility] Drialablyz2359 [place] [address]Dr. Nahed Otilio Anion gap [Moles/Vol] 13.0 mmol/L Normal Th e [facility] Comment on above: Performed By: #### C MP ####[facility] Jjcoxklkzs[address] [place], [place] [address]Dr. Nahed Otilio AST [Catalytic activity/Vol] 11 U/L Critically low 15-37 [facility] Comment on above: Performed By: #### C MP ####[facility] Kudbarmyot23[address] [place], [place] [address]Dr. Nahed Otilio Bilirubin [Mass/Vol] 0.2 mg/dL Normal 0.2-1.0 [facility] Comment on above: Performed By: #### C MP ####[facility] Kavmwhukyv7[address] [place], [place] [address]Dr. Nahed Otilio Calcium [Mass/Vol] 9.6 mg/dL Normal 8.5-10.1 [facility] Comment on above: Performed By: #### C MP ####[facility] Ucvbxjyopz2679 [place] [address]Dr. Nahed Otilio Chloride [Moles/Vol] 100 mmol/L Normal 98-107 [facility] Comment on above: Performed By: #### C MP ####[facility] Jvrphjzwxf0291 [place] [address]Dr. Nahed Yañez CO2 [Moles/Vol] 27.3 mmol/L Normal 21.0-32.0 [facility] Comment on above: Performed By: #### C MP ####[facility] Sjkxnzahyn7084 [place] [address]Dr. Nahed Yañez Creatinine [Mass/Vol] 1.19 mg/dL Critically high 0.55-1.02 [facility] Comment on above: Performed By: #### C MP ####[facility] Yhuquuaiex6212 [place] [phone]. Nahed Yañez EGFR-AF [place]LANDER 56 mL/min/1.73m2 Critically low >=60 [facility] Comment on above: Performed By: #### C MP ####[facility] Zigoulogma2129 [place] [address]Dr. Nahed Yañez EGFR-NON AF [place]LANDER 46 mL/min/1.73m2 Critically low >=60 [facility] Comment on above: Performed By: #### C MP ####[facility] Muhpqmcnal0547 [place] [address]Dr. Nahed Yañez Globulin (S) [Mass/Vol] 4.1 g/dL Normal [facility] Comment on above: Performed By: #### C MP ####[facility] Xmiflhkrlb2788 [place] [address]Dr. Nahed Yañez Glucose [Mass/Vol] 244 mg/dL Critically high 74-106 [facility] Comment on above: Performed By: #### C MP ####[facility] Dpbtoqdskf3732 [place] [address]Dr. Nahed Yañez Potassium [Moles/Vol] 4.3 mmol/L Normal 3.5-5.1 [facility] Comment on above: Performed By: #### C MP ####[facility] Nfwvazrpuq4427 [place] [address]Dr. Nahed Yañez Protein [Mass/Vol] 7.1 g/dL Normal 6.4-8.2 [facility] Comment on above: Performed By: #### C MP ####[facility] Tkksgkrqbg2601 [place] [address]Dr. Nahed Yañez Sodium [Moles/Vol] 136 mmol/L Normal 136-145 [facility] Comment on above: Performed By: #### C MP ####[facility] Xhrkbrsifa29[address] [place], [place] [address]Dr. Nahed Yañez Urea nitrogen [Mass/Vol] 19.0 mg/dL Critically high 7.0-18.0 The [facility] Comment on above: Performed By: #### C MP ####[facility] Shmyrvlrni878[address] [place], [place] [address]Dr. Nahed Otilio Urea nitrogen/Creatinine [Mass ratio] 16.0 mg/mg Normal [facility] Comment on above: Performed By: #### C MP ####[facility] Erjnjbydwm[address]19[address] [place], [place] [address]Dr. Nahed Otilio BNPon 07-27-2022 Natriuretic peptide B (Bld) [Mass/Vol] 1093.0 pg/mL Critically high <=900.0 [facility] Comment on above: Performed By: #### B IMPORT/EXPORT ANALYST ####[facility] Zmerjnlpbl158[address] [place], [place] [address]Dr. Nahed Otilio CBC AUTO DIFFon 07-27-2022 BASO # 0.1 103/ul Normal 0.0-0.1 [facility] Comment on above: Performed By: #### C BC ####[facility] Skehzbwrnr2784[address] [place], [place] [address]Dr. Nahed Otilio Basophils/100 WBC (Bld) 0.3 % Normal 0.2-2.0 The [facility] Comment on above: Performed By: #### C BC ####[facility] Tvyykhphwh33[address] [place], [place] [address]Dr. Nahed Yañez EO # 0.2 103/ul Normal 0.0-0.7 [facility] Comment on above: Performed By: #### C BC ####[facility] Furvvsgynn4166[address] [place], [place] [address]Dr. Nahed Otilio Eosinophils/100 WBC (Bld) 1.2 % Normal 0.9-7.0 The [facility] Comment on above: Performed By: #### C BC ####[facility] Uknukwryjf8539[address] [place], [place] [address]Dr. Nahed Otilio Erythrocyte distribution width (RBC) [Ratio] 14.1 % Normal 11.0-15.0 [facility] Comment on above: Performed By: #### C BC ####[facility] Xlwnjapxuu7374 [place] [address]Dr. Nahed Yañez Hematocrit (Bld) [Volume fraction] 42.2 % Normal 36.0-48.0 [facility] Comment on above: Performed By: #### C BC ####[facility] Nvncmmnpsv9934 [place] [address]Dr. Nahed Yañez Hemoglobin (Bld) [Mass/Vol] 13.6 g/dL Normal 12.0-16.0 [facility] Comment on above: Performed By: #### C BC ####[facility] Vqatnnssus4[address] [place], [place] [address]Dr. Nahed Yañez IG # 0.09 10e3/ul Critically high 0.00-0.03 [facility] Comment on above: Performed By: #### C BC ####[facility] Bjiuujrujw7396[address] [place], [place] [address]Dr. Nahed Yañez IG % 0.5 % Normal 0.0-0.5 [facility] Comment on above: Performed By: #### C BC ####[facility] Qmvoqlnnky459[address] [place], [place] [address]DrShaun Nahed Yañez LYMPH # 1.8 103/ul Normal 1.2-3.8 [facility] Comment on above: Performed By: #### C BC ####[facility] Qoqbeymdph8804[address] [place], [place] [address]DrShaun Yañez Lymphocytes/100 WBC (Bld) 10.2 % Critically low 20.5-60.0 [facility] Comment on above: Performed By: #### C BC ####[facility] Enrxfajxtq[address] [place], [place] [address]DrShaun Yañez MANUAL DIFF REQ NO Normal [facility] Comment on above: Performed By: #### C BC ####[facility] Cnomohbrbx[address] [place], [place] [address]Dr. Nahed Yañez MCH (RBC) [Entitic mass] 28.3 pg Normal 26.7-34.0 [facility] Comment on above: Performed By: #### C BC ####[facility] Fcxtlvwhtq5361 [place] [address]Dr. Nahed Yañez MCHC (RBC) [Mass/Vol] 32.2 g/dL Normal 29.9-35.2 [facility] Comment on above: Performed By: #### C BC ####[facility] Bofarphlpc80[address] [place], [place] [address]DrShaun Yañez MCV (RBC) [Entitic vol] 87.9 fL Normal 81.0-99.0 [facility] Comment on above: Performed By: #### C BC ####[facility] Ohvzwiproo54[address] [place], [place] [address]Dr. Nahed Yañez MONO # 0.9 103/ul Critically high 0.3-0.8 [facility] Comment on above: Performed By: #### C BC ####[facility] Cnvomgecko0024[address] [place], [place] [address]Dr. Nahed Yañez Monocytes/100 WBC (Bld) 5.2 % Normal 1.7-12.0 [facility] Comment on above: Performed By: #### C BC ####[facility] Tmuofxvrgw263[address] [place], [place] [address]DrShaun Yañez NEUT # 14.4 103/ul Critically high 1.4-6.5 [facility] Comment on above: Performed By: #### C BC ####[facility] Opigfgyuqv806[address] [place], [place] [address]Dr. Nahed Yañez Neutrophils/100 WBC (Bld) 82.6 % Critically high 43.0-75.0 [facility] Comment on above: Performed By: #### C BC ####[facility] Jftfgnhazy4[address] [place], [place] [address]Dr. Nahed Yañez Platelet mean volume (Bld) [Entitic vol] 10.1 fL Normal 9.5-13.5 [facility] Comment on above: Performed By: #### C BC ####[facility] Tjdbwmptbl[address] [place], [place] [address]Dr. Nahed Yañez PLT 336 103/ul Normal 150-450 [facility] Comment on above: Performed By: #### C BC ####[facility] Lgyjkpxwcp7626 [place], [place] [address]Ep. Nahed Yañez RBC 4.80 106/ul Normal 4.20-5.40 [facility] Comment on above: Performed By: #### C BC ####[facility] Nteltzspwj9575 [place], [place] [address]Nd. Nahed Yañez WBC 17.4 103/ul Critically high 4.0-11.0 [facility] Comment on above: Performed By: #### C BC ####[facility] Ymsexcahlh9322 [place], [place] [address]Wa. Nahed Yañez CTA CHEST WO W CONon 023 CTA CHEST WO W CON Normal [facility] Covid-19 PCR ([facility])on 07-12 SARS-CoV-2 (COVID-19) RNA MIRNA+probe Ql (Unsp spec) Not detected Normal NOT DETECTED The [facility] Comment on above: Result Comment: When [...] for this test is supported by the Motion Study Technician of Health and Human Service's declaration that [...] be used). Performed By: #### C VDTBH ####[facility] Synoagpqfo1711 [place], [place] [address]Km. Nahed Yañez ECHOCARDIO M/2D COMPLETEon 0 07-27-2022 ECHOCARDIO M/2D COMPLETE Normal [facility] ER URINE PROFILEon Bilirubin Ql (U) Negative Normal NEGATIVE [facility] Comment on above: Performed By: #### U MICRO, ERUR ####[facility] Arwldkxfex[address] [place], [place] [address]Dr. Nahed Yañez Clarity (U) CLEAR Normal CLEAR [facility] Comment on above: Performed By: #### U MICRO, ERUR ####[facility] Hndrhisgwi[address] [place], [place] [address]Dr. Nahed Yañez Color (U) LT. YELLOW Normal YELLOW [facility] Comment on above: Performed By: #### U MICRO, ERUR ####[facility] Mwftairqfb[address] [place], [place] [address]Dr. Nahed Yañez ERUAHD A micrscopic examination will be performed if indicated. Normal [facility] Comment on above: Performed By: #### U MICRO, ERUR ####[facility] Dcmjnsvioe[address] [place], [place] [address]Dr. Nahed Yañez Glucose Ql (U) >1000 Abnormal NEGATIVE [facility] Comment on above: Performed By: #### U MICRO, ERUR ####[facility] Nakhhpjqlz[address] [place], [place] [address]Dr. Nahed Yañez Hemoglobin Ql (U) TRACE-LYSED Abnormal NEGATIVE [facility] Comment on above: Performed By: #### U MICRO, ERUR ####[facility] Wdvsvqevbu[address] [place], [place] [address]Dr. Nahed Yañez Ketones Ql (U) TRACE Abnormal NEGATIVE [facility] Comment on above: Performed By: #### U MICRO, ERUR ####[facility] Ehlrxopwal257[address] [place], [place] [address]Dr. Nahed Yañez LEUKOCYTES Negative Normal NEGATIVE [facility] Comment on above: Performed By: #### U MICRO, ERUR ####[facility] Znitumlbww164[address] [place], [place] [address]Dr. Nahed Yañez Nitrite Ql (U) Negative Normal NEGATIVE [facility] Comment on above: Performed By: #### U MICRO, ERUR ####[facility] Avmuudlemw[address] [place] [address]Dr. Nahed Yañez pH (U) 7.0 [pH] Normal 5-9 [facility] Comment on above: Performed By: #### U MICRO, ERUR ####[facility] Jxaslmzwlc30[address] [place] [address]Dr. Nahed Yañez SPEC GRAVITY 1.020 Normal 1.005-<=1.02 5 [facility] Comment on above: Performed By: #### U MICRO, ERUR ####[facility] Ckzcvlfxzo[address] [place], [place] [address]Dr. Nahed Yañez UA PROTEIN Negative Normal NEGATIVE/ TRACE [facility] Comment on above: Performed By: #### U MICRO, ERUR ####[facility] Bfhulsbrkj46[address] [place], [place] [address]Dr. Nahed Yañez UR MICRO IND INDICATED Normal [facility] Comment on above: Performed By: #### U MICRO, ERUR ####[facility] Aqrqilrjfa[address] [place], [place] [address]Dr. Nahed Yañez Urobilinogen Qn (U) 0.2 {Alem'U}/dL Normal 0.2 - 1. 0 [facility] Comment on above: Performed By: #### U MICRO, ERUR ####[facility] Gnzzfqqgao[address] [place], [place] [address]Dr. Nahed Yañez LIPID PROFILEon 07-27-2022 CHOL-HDL RATIO NORM SEE BELOW Normal [facility] Comment on above: Result Comment: 3.3 - 4.4 LOW RISK 4.4 - 7.1 AVERAGE RISK 7.1 - 11.0 MODERATE RISK >11.0 HIGH RISK Performed By: #### M G, LIPID ####[facility] Wbygcnjefi[address] [place], [place] [address]Dr. Nahed Yañez Cholesterol [Mass/Vol] 181 mg/dL Normal <=200 [facility] Comment on above: Performed By: #### M G, LIPID ####[facility] Twpukzndde64[address] [place], [place] [address]Dr. Nahed Yañez Cholesterol in HDL [Mass/Vol] 87 mg/dL Critically high 40-60 [facility] Comment on above: Performed By: #### Pablo Moore, LIPID ####[facility] Urqqyvtmqf28[address] [place] [phone]. Nahed Yañez Cholesterol in LDL [Mass/Vol] 78.6 mg/dL Normal [facility] Comment on above: Performed By: #### Pablo Moore, LIPID ####[facility] Irjbakkihg[address] [place] [phone]. Nahed Yañez Cholesterol.total/Chol esterol in HDL [Mass ratio] 2.1 {ratio} Normal [facility] Comment on above: Performed By: #### Pablo Moore, LIPID ####[facility] Acc[address]ouyvpo[address] [place] [phone]. Nahed Yañez HDL NORMAL > or = 60 mg/dl - LO W CARDIOVASCULAR RISK <40 mg/dl - HIGH CARDIOVASCULAR RISK Normal [facility] Comment on above: Performed By: #### Pablo Moore, LIPID ####[facility] Tztrkdkdbb8[address] [place] [phone]. Nahed Yañez LDL CALC NORMAL SEE BELOW Normal [facility] Comment on above: Result Comment: <100 mg/dl OPTIMAL 100 - 129 mg/dl NEAR OR ABOVE OPTIMAL 130 - 159 mg/dl BORDERLINE HIGH 160 - 189 mg/dl HIGH >190 mg/dl VERY HIGH Performed By: #### Pablo Moore, LIPID ####[facility] Xfluzodurc32[address] [place] [phone]. Nahed Yañez Triglyceride [Mass/Vol] 77 mg/dL Normal <=150 [facility] Comment on above: Performed By: #### Pablo Moore, LIPID ####[facility] Skhdibokxb39[address] [place] [phone]. Nahed Yañez VLDL CALC 15.4 mg/dL Normal [facility] Comment on above: Performed By: #### Pablo Moore, LIPID ####[facility] Tmcbesvdka[address] [place] [phone]. Nahed Yañez MAGNESIUMon 07-27-2022 Magnesium [Mass/Vol] 1.7 mg/dL Critically low 1.8-2.4 [facility] Comment on above: Performed By: #### M G, LIPID ####[facility] Qcawqwtnnj[address] [place] [address]Dr. Rosemarieashley Yañez POINT OF CARE GLUCOSEon 07-12 Glucose [Mass/Vol] 276 mg/dL Critically high 74-106 [facility] Comment on above: Performed By: #### P OCGLUC ####[facility] Ieltudurrb45[address] [place] [address]Dr. Nahed Yañez Glucose [Mass/Vol] 143 mg/dL Critically high 74-106 [facility] Comment on above: Performed By: #### P OCGLUC ####[facility] Jlvrteqxau1206 [place] [address]Dr. Nahed Yañez Glucose [Mass/Vol] 117 mg/dL Critically high 74-106 [facility] Comment on above: Performed By: #### P OCGLUC ####[facility] Amitoyvilm5351 [place] [address]Dr. Nahed Yañez PROF CHEM 8 (BAS METB)on Anion gap [Moles/Vol] 11.1 mmol/L Normal [facility] Comment on above: Performed By: #### BRYNN Ordonez MPN ####[facility] Dpadqeglbc7[address] [place] [address]Dr. Nahed Yañez Calcium [Mass/Vol] 9.6 mg/dL Normal 8.5-10.1 [facility] Comment on above: Performed By: #### Mery MULLER HSTROPN ####[facility] Ladaieehnq39[address] [place] [address]Dr. Nahed Yañez Chloride [Moles/Vol] 99 mmol/L Normal 98-107 [facility] Comment on above: Performed By: #### Mery MULLER HSTROPN ####[facility] Ecpapikbtf[address] [place] [address]Dr. Nahed Yañez CO2 [Moles/Vol] 27.8 mmol/L Normal 21.0-32.0 [facility] Comment on above: Performed By: #### Mery MULLER HSTROPN ####[facility] Ryryfqwvfm2329 [place] [phone]. Rosemarieashley Yañez Creatinine [Mass/Vol] 0.90 mg/dL Normal 0.55-1.02 [facility] Comment on above: Performed By: #### B RENZO, HSTROPN ####[facility] Okpzpzyodk[address] [place] [phone]. Nahed Otilio EGFR-AF SOLOMON ISLANDER >60 Normal >=60 [facility] Comment on above: Performed By: #### B RENZO, HSTROPN ####[facility] Dwkxuwsrle9[address] [place] [phone]. Nahed Otilio EGFR-NON AF [place] ISLANDER >60 Normal >=60 [facility] Comment on above: Performed By: #### B RENZO, HSTROPN ####[facility] Yufatolaim[address] [place] [address]Dr. Nahed Yañez Glucose [Mass/Vol] 133 mg/dL Critically high 74-106 [facility] Comment on above: Performed By: #### B RENZO, HSTROPN ####[facility] Bplvfwrqjp26[address] [place] [address]Dr. Nahed Yañez Potassium [Moles/Vol] 3.9 mmol/L Normal 3.5-5.1 [facility] Comment on above: Performed By: #### B RENZO, HSTROPN ####[facility] Lzeycigbsd5680 [place] [address]Dr. Nahed Yañez Sodium [Moles/Vol] 134 mmol/L Critically low 136-145 [facility] Comment on above: Performed By: #### B RENZO, HSTROPN ####[facility] Ujhmwqfmuk95[address] [place] [address]Dr. Nahed Yañez Urea nitrogen [Mass/Vol] 9.0 mg/dL Normal 7.0-18.0 [facility] Comment on above: Performed By: #### B RENZO, HSTROPN ####[facility] Gelhouezyi80[address] [place] [address]Dr. Naehd Yañez Urea nitrogen/Creatinine [Mass ratio] 10.0 mg/mg Normal [facility] Comment on above: Performed By: #### B MP, HSTROPN ####[facility] Jdhusvvezl[address] [place] [phone]. Nahed Yañez TROPONIN, HIGH SENSITIVITYon 07-27-2022 HSTROP 40.7 pg/mL Normal 4.0-51.3 [facility] Comment on above: Result Comment: CUT- OFF POINTS HAVE BEEN ESTABLISHED BASED ON THE FOURTH UNIVERSAL DEFINITIONS OF MYOCARDIALINFARCTION. THE UPPER REFERENCE LIMIT (URL) OF TROPONIN, DEFINED THE 99TH PERCENTILE OFcTnI DISTRIBUTION IN A REFERENCE POPULATION, HAS BEEN CONFIRMED THE DECISION THRESHOLDFOR MT DIAGNOSIS. Performed By: #### H STROPN ####[facility] Xhdissxyjc[address] [place] [address]Dr. Nahed Yañez HSTROP 42.5 pg/mL Normal 4.0-51.3 [facility] Comment on above: Result Comment: CUT- OFF POINTS HAVE BEEN ESTABLISHED BASED ON THE [facility] UNIVERSAL DEFINITIONS OF MYOCARDIALINFARCTION. THE UPPER REFERENCE LIMIT (URL) OF TROPONIN, DEFINED THE 99TH PERCENTILE OFcTnI DISTRIBUTION IN A REFERENCE POPULATION, HAS BEEN CONFIRMED THE DECISION THRESHOLDFOR MT DIAGNOSIS. Performed By: #### H STROPN ####[facility] Cdsxkezwcb0926 [place] [address]Dr. Nahed Yañez HSTROP 50.8 pg/mL Normal 4.0-51.3 [facility] Comment on above: Result Comment: CUT- OFF POINTS HAVE BEEN ESTABLISHED BASED ON THE [facility] UNIVERSAL DEFINITIONS OF MYOCARDIALINFARCTION. THE UPPER REFERENCE LIMIT (URL) OF TROPONIN, DEFINED THE 99TH PERCENTILE OFcTnI DISTRIBUTION IN A REFERENCE POPULATION, HAS BEEN CONFIRMED THE DECISION THRESHOLDFOR MT DIAGNOSIS. Performed By: #### H STROPN ####[facility] Kqhqkjkqnu39[address] [place] [phone]. Nahed Yañez HSTROP 46.3 pg/mL Normal 4.0-51.3 [facility] Comment on above: Result Comment: CUT- OFF POINTS HAVE BEEN ESTABLISHED BASED ON THE FOURTH UNIVERSAL DEFINITIONS OF MYOCARDIALINFARCTION. THE UPPER REFERENCE LIMIT (URL) OF TROPONIN, DEFINED THE 99TH PERCENTILE OFcTnI DISTRIBUTION IN A REFERENCE POPULATION, HAS BEEN CONFIRMED THE DECISION THRESHOLDFOR MT DIAGNOSIS. Performed By: #### H STROPN, TSH ####[facility] Tcmhfuhhhz8357 [place] [address]Dr. Nahed Yañez HSTROP 54.2 pg/mL Critically high 4.0-51.3 [facility] Comment on above: Result Comment: CUT- OFF POINTS HAVE BEEN ESTABLISHED BASED ON THE FOURTH UNIVERSAL DEFINITIONS OF MYOCARDIALINFARCTION. THE UPPER REFERENCE LIMIT (URL) OF TROPONIN, DEFINED THE 99TH PERCENTILE OFcTnI DISTRIBUTION IN A REFERENCE POPULATION, HAS BEEN CONFIRMED THE DECISION THRESHOLDFOR MT DIAGNOSIS. Performed By: #### B MP, HSTROPN ####[facility] Hoyiwxrnfk[address] [place], [place] [address]Dr. Nahed Yañez TSHon 07-27-2022 TSH 1.566 uIU/mL Normal 0.358-3.740 [facility] Comment on above: Performed By: #### H STROBINH, TSH ####[facility] Xktkbczaqu[address] [place], [place] [address]Dr. Nahed Yañez URINE MICROSCOPIC ONLYon BACTERIA NONE SEEN Normal NONE SEEN [facility] Comment on above: Performed By: #### U MICRO, ERUR ####[facility] Fsdwmdxehv[address] [place], [place] [address]Dr. Nahed Yañez Bacteria identified Cx Nom (U) NOT INDICATED Normal [facility] Comment on above: Performed By: #### U MICRO, ERUR ####[facility] Yvzhadmdrf[address] [place], [place] [address]Dr. Nahed Yañez CAST NONE SEEN Normal NONE SEEN [facility] Comment on above: Performed By: #### U MICRO, ERUR ####[facility] Xnaukuyjoj[address] [place], [place] [address]Dr. Nahed Yañez Crystals LM Nom (Urine sed) NONE SEEN Normal NONE SEEN [facility] Comment on above: Performed By: #### U MICRO, ERUR ####[facility] Nictipqbym[address] [place], [place] [address]Dr. Nahed Yañez Epithelial cells LM Ql (Urine sed) FEW Abnormal NONE SEEN /RARE [facility] Comment on above: Performed By: #### U MICRO, ERUR ####[facility] Ebymzapokw37[address] [place] [address]Dr. Nahed Yañez MUCOUS NONE SEEN Normal NONE SEEN [facility] Comment on above: Performed By: #### U MICRO, ERUR ####[facility] Woxcfpapxi1872 [place] [address]Dr. Nahed Yañez RBC 0-2 Normal 0-2 [facility] Comment on above: Performed By: #### U MICRO, ERUR ####[facility] Wnaghispdl4630 [place] [address]Dr. Nahed Yañez WBC NONE SEEN Normal NONE SEEN [facility] Comment on above: Performed By: #### U MICRO, ERUR ####[facility] Mwojpnsohu[address] [place], [place] [address]Dr. Nahed Yañez XR CHEST 1 Von 07-27-2022 XR CHEST 1 V Normal [facility] INSULINon 05-09-2022 Insulin 21.1 uIU/mL Normal 2.6-24.9 [facility] Comment on above: Performed By: #### I NSULIN ####[facility] Bujwvrfphq[address] [place], [place] [address]Dr. Nahed Yañez BNPon 05-08-2022 Natriuretic peptide B (Bld) [Mass/Vol] 58.0 pg/mL Normal <=900.0 [facility] Comment on above: Performed By: #### B IMPORT/EXPORT ANALYST, LIPID, T7, TSH, CMP ####[facility] Mwoyprxvdd[address] [place], [place] [address]Dr. Nahed Yañez CBC AUTO DIFFon 05-08-2022 BASO # 0.0 103/ul Normal 0.0-0.1 [facility] Comment on above: Performed By: #### C BC ####[facility] Xpezrlpuqw[address] [place], [place] [address]Dr. Nahed Yañez Basophils/100 WBC (Bld) 0.4 % Normal 0.2-2.0 [facility] Comment on above: Performed By: #### C BC ####[facility] Liskfucdon[address] [place], [place] [address]Dr. Nahed Yañez EO # 0.3 103/ul Normal 0.0-0.7 [facility] Comment on above: Performed By: #### C BC ####[facility] Fzffjbiwmi[address] [place], [place] [address]Dr. Nahed Otilio Eosinophils/100 WBC (Bld) 4.2 % Normal 0.9-7.0 [facility] Comment on above: Performed By: #### C BC ####[facility] Wvxgxmdffb[address] [place], [place] [address]Dr. Nahed Yañez Erythrocyte distribution width (RBC) [Ratio] 14.0 % Normal 11.0-15.0 [facility] Comment on above: Performed By: #### C BC ####[facility] Dzkqcpmgfk[address] [place], [place] [address]Dr. Roesmarieashley Yañez Hematocrit (Bld) [Volume fraction] 43.8 % Normal 36.0-48.0 [facility] Comment on above: Performed By: #### C BC ####[facility] Njwriummok[address] [place], [place] [address]Dr. Nahed Yañez Hemoglobin (Bld) [Mass/Vol] 13.9 g/dL Normal 12.0-16.0 [facility] Comment on above: Performed By: #### C BC ####[facility] Cnpbkyclmi[address] [place], [place] [address]Dr. Nahed Yañez IG # 0.01 10e3/ul Normal 0.00-0.03 [facility] Comment on above: Performed By: #### C BC ####[facility] Nhlhdhplcr[address] [place], [place] [address]Dr. Nahed Yañez IG % 0.1 % Normal 0.0-0.5 [facility] Comment on above: Performed By: #### C BC ####[facility] Hzjhyyyzrd118[address] [place], [place] [address]Dr. Nahed Yañez LYMPH # 2.8 103/ul Normal 1.2-3.8 [facility] Comment on above: Performed By: #### C BC ####[facility] Tbdgbypyuy[address] [place], [place] [address]Dr. Nahed Yañez Lymphocytes/100 WBC (Bld) 37.6 % Normal 20.5-60.0 [facility] Comment on above: Performed By: #### C BC ####[facility] Bnizqexmeb4106 [place] [address]DrShaun Yañez MANUAL DIFF REQ NO Normal [facility] Comment on above: Performed By: #### C BC ####[facility] Jdyimjjhsi8707 [place] [address]Dr. Nahed Yañez MCH (RBC) [Entitic mass] 28.4 pg Normal 26.7-34.0 [facility] Comment on above: Performed By: #### C BC ####[facility] Xjvrivhvrj[address] [place], [place] [address]Dr. Nahed Yañez MCHC (RBC) [Mass/Vol] 31.7 g/dL Normal 29.9-35.2 [facility] Comment on above: Performed By: #### C BC ####[facility] Ainletsvpi[address] [place], [place] [address]Dr. Nahed Yañez MCV (RBC) [Entitic vol] 89.6 fL Normal 81.0-99.0 [facility] Comment on above: Performed By: #### C BC ####[facility] Vnkygmoenk[address] [place], [place] [address]DrShaun Yañez MONO # 0.5 103/ul Normal 0.3-0.8 [facility] Comment on above: Performed By: #### C BC ####[facility] Fhxyoltitu[address] [place], [place] [address]DrShaun Yañez Monocytes/100 WBC (Bld) 6.8 % Normal 1.7-12.0 [facility] Comment on above: Performed By: #### C BC ####[facility] Cqyimuiafz[address] [place], [place] [address]DrShaun Yañez NEUT # 3.7 103/ul Normal 1.4-6.5 [facility] Comment on above: Performed By: #### C BC ####[facility] Avpgchnejp50[address] [place], [place] [address]DrShaun Yañez Neutrophils/100 WBC (Bld) 50.9 % Normal 43.0-75.0 [facility] Comment on above: Performed By: #### C BC ####[facility] Hxrjuwyrsp9100 [place] [phone]. Nahed Yañez Platelet mean volume (Bld) [Entitic vol] 9.8 fL Normal 9.5-13.5 [facility] Comment on above: Performed By: #### C BC ####[facility] Jdwhuhrgvj3199 [place] [phone]. Nahed Yañez PLT 306 103/ul Normal 150-450 [facility] Comment on above: Performed By: #### C BC ####[facility] Tevjc[address]oql[address] [place], [place] [id number]. Nahed Yañez RBC 4.89 106/ul Normal 4.20-5.40 [facility] Comment on above: Performed By: #### C BC ####[facility] [address]yqcdy[address] [place], [place] [id number]. Nahed Yañez WBC 7.3 103/ul Normal 4.0-11.0 [facility] Comment on above: Performed By: #### C BC ####[facility] Mohlbbwugp[address] [place], [place] [address]Dr. Nahed Yañez FREE THYROXINE INDEX T7on FTI 2.92 Normal 1.30-4.50 [facility] Comment on above: Performed By: #### B IMPORT/EXPORT ANALYST, LIPID, T7, TSH, CMP ####[facility] Xrclknjyab7947 [place] [phone]. Nahed Yañez T3U 34.0 % Normal 30.0-39.0 [facility] Comment on above: Performed By: #### B IMPORT/EXPORT ANALYST, LIPID, T7, TSH, CMP ####[facility] Qhkceyqvai[address] [place], [place] [id number]. Nahed Yañez T4 [Mass/Vol] 8.60 ug/dL Normal 4.80-13.90 [facility] Comment on above: Performed By: #### B IMPORT/EXPORT ANALYST, LIPID, T7, TSH, CMP ####[facility] Gischgawtq7718 [place] [phone]. Nahed Yañez GLYCOHEMOGLOBIN A1Con 2021 ADA RECOMMENDATION SEE BELOW Normal [facility] Comment on above: Result Comment: ADA RECOMMENDED LIMIT 4.0 - 6.0 ADA THERAPEUTIC TARGET < 7.0 ACTION SUGGESTED > 7.0 Performed By: #### A 1C ####[facility] Nfmjoozwfb4487 [place] [phone]. Nahed Yañez Glucose [Mass/Vol] 146 mg/dL Normal [facility] Comment on above: Performed By: #### A 1C ####[facility] Etgfrfzels3335 [place] [phone]. Nahed Yañez HbA1c (Bld) [Mass fraction] 6.7 % Critically high 4.5-6.2 [facility] Comment on above: Performed By: #### A 1C ####[facility] [address]ylngvfpe[address] [place], [place] [address]Dr. Nahed Yañez IRONon 05-08-2022 Iron [Mass/Vol] 76.0 ug/dL Normal 50.0-170.0 [facility] Comment on above: Performed By: #### V ITAD, IRON ####[facility] Nznblfsdgc[address] [place], [place] [address]Dr. Nahed Yañez LIPID PROFILEon 05-08-2022 CHOL-HDL RATIO NORM SEE BELOW Normal [facility] Comment on above: Result Comment: 3.3 - 4.4 LOW RISK 4.4 - 7.1 AVERAGE RISK 7.1 - 11.0 MODERATE RISK >11.0 HIGH RISK Performed By: #### B IMPORT/EXPORT ANALYST, LIPID, T7, TSH, CMP ####[facility] Yvqvoikysk8354 [place] [phone]. Nahed Yañez Cholesterol [Mass/Vol] 167 mg/dL Normal <=200 [facility] Comment on above: Performed By: #### B IMPORT/EXPORT ANALYST, LIPID, T7, TSH, CMP ####[facility] Mzfatghqso6484 [place] [phone]. Nahed Yañez Cholesterol in HDL [Mass/Vol] 63 mg/dL Critically high 40-60 [facility] Comment on above: Performed By: #### B IMPORT/EXPORT ANALYST, LIPID, T7, TSH, CMP ####[facility] [facility] [address] [place] [id number]. Nahed Yañez Cholesterol in LDL [Mass/Vol] 72.6 mg/dL Normal [facility] Comment on above: Performed By: #### B IMPORT/EXPORT ANALYST, LIPID, T7, TSH, CMP ####[facility] Fcroznbann[address] [place] [address]Dr. Nahed Yañez Cholesterol.total/Chol esterol in HDL [Mass ratio] 2.7 {ratio} Normal [facility] Comment on above: Performed By: #### B IMPORT/EXPORT ANALYST, LIPID, T7, TSH, CMP ####[facility] A[address]oymbl[address] [place] [address]Dr. Nahed Yañez HDL NORMAL > or = 60 mg/dl - LO W CARDIOVASCULAR RISK <40 mg/dl - HIGH CARDIOVASCULAR RISK Normal [facility] Comment on above: Performed By: #### B IMPORT/EXPORT ANALYST, LIPID, T7, TSH, CMP ####[facility] Tuqch[address]oxx[address] [place] [address]Dr. Nahed Yañez LDL CALC NORMAL SEE BELOW Normal [facility] Comment on above: Result Comment: <100 mg/dl OPTIMAL 100 - 129 mg/dl NEAR OR ABOVE OPTIMAL 130 - 159 mg/dl BORDERLINE HIGH 160 - 189 mg/dl HIGH >190 mg/dl VERY HIGH Performed By: #### B IMPORT/EXPORT ANALYST, LIPID, T7, TSH, CMP ####[facility] Qwpvhuxmqf[address] [place] [address]Dr. Nahed Yañez Triglyceride [Mass/Vol] 157 mg/dL Critically high <=150 [facility] Comment on above: Performed By: #### B IMPORT/EXPORT ANALYST, LIPID, T7, TSH, CMP ####[facility] Cyshfpxxou[address] [place] [address]Dr. Nahed Yañez VLDL CALC 31.4 mg/dL Normal [facility] Comment on above: Performed By: #### B IMPORT/EXPORT ANALYST, LIPID, T7, TSH, CMP ####[facility] Tccgqcvbwi[address] [place] [id number]. Nahed Yañez OCC BLD IMMUNO SCREENon 12-2 OCCULT BLOOD Negative Normal NEGATIVE [facility] Comment on above: Performed By: #### O BSCRN ####[facility] Ho[address]sc[address] [place], [place] [address]Dr. Nahed Yañez PROF 14(COMP METB)on 022 Albumin [Mass/Vol] 3.7 g/dL Normal 3.4-5.0 [facility] Comment on above: Performed By: #### B IMPORT/EXPORT ANALYST, LIPID, T7, TSH, CMP ####[facility] Ovfgpxvcxa[address] [place], [place] [address]Dr. Nahed Yañez Albumin/Globulin [Mass ratio] 0.9 {ratio} Normal [facility] Comment on above: Performed By: #### B IMPORT/EXPORT ANALYST, LIPID, T7, TSH, CMP ####[facility] Krjygjjvmv[address] [place], [place] [address]Dr. Nahed Yañez ALP [Catalytic activity/Vol] 99 U/L Normal 46-116 [facility] Comment on above: Performed By: #### B IMPORT/EXPORT ANALYST, LIPID, T7, TSH, CMP ####[facility] N[address]zqjoupv[address] [place], [place] [address]Dr. Nahed Yañez ALT [Catalytic activity/Vol] 20 U/L Normal 14-59 [facility] Comment on above: Performed By: #### B IMPORT/EXPORT ANALYST, LIPID, T7, TSH, CMP ####[facility] Cuwksjidpy[address] [place], [place] [address]Dr. Nahed Yañez Anion gap [Moles/Vol] 10.6 mmol/L Normal [facility] Comment on above: Performed By: #### B IMPORT/EXPORT ANALYST, LIPID, T7, TSH, CMP ####[facility] Xpvjvumebd[address] [place], [place] [address]Dr. Nahed Yañez AST [Catalytic activity/Vol] 29 U/L Normal 15-37 [facility] Comment on above: Performed By: #### B IMPORT/EXPORT ANALYST, LIPID, T7, TSH, CMP ####[facility] Dtkapgqunh[address] [place], [place] [address]Dr. Nahed Yañez Bilirubin [Mass/Vol] 0.4 mg/dL Normal 0.2-1.0 [facility] Comment on above: Performed By: #### B IMPORT/EXPORT ANALYST, LIPID, T7, TSH, CMP ####[facility] Cshvwndgvw3[address] [place] [address]Dr. Nahed Yañez Calcium [Mass/Vol] 9.3 mg/dL Normal 8.5-10.1 [facility] Comment on above: Performed By: #### B IMPORT/EXPORT ANALYST, LIPID, T7, TSH, CMP ####[facility] Avezpnhxtn54[address] [place] [address]Dr. Nahed Yañez Chloride [Moles/Vol] 100 mmol/L Normal 98-107 [facility] Comment on above: Performed By: #### B IMPORT/EXPORT ANALYST, LIPID, T7, TSH, CMP ####[facility] Pprhgdouge[address] [place], [place] [address]Dr. Nahed Yañez CO2 [Moles/Vol] 31.4 mmol/L Normal 21.0-32.0 [facility] Comment on above: Performed By: #### B IMPORT/EXPORT ANALYST, LIPID, T7, TSH, CMP ####[facility] Gxdynbmcxp[address] [place], [place] [address]Dr. Nahed Yañez Creatinine [Mass/Vol] 1.01 mg/dL Normal 0.55-1.02 [facility] Comment on above: Performed By: #### B IMPORT/EXPORT ANALYST, LIPID, T7, TSH, CMP ####[facility] Meuttcx[address]ls[address] [place], [place] [address]Dr. Nahed Yañez EGFR-AF SOL[place] ISLANDER >60 Normal >=60 [facility] Comment on above: Performed By: #### B IMPORT/EXPORT ANALYST, LIPID, T7, TSH, CMP ####[facility] Adzlzyusui[address] [place], [place] [address]Dr. Nahed Yañez EGFR-NON AF [place]LANDER 56 mL/min/1.73m2 Critically low >=60 [facility] Comment on above: Performed By: #### B IMPORT/EXPORT ANALYST, LIPID, T7, TSH, CMP ####[facility] Ctdteqomfo[address] [place], [place] [address]Dr. Nahed Yañez Globulin (S) [Mass/Vol] 3.9 g/dL Normal [facility] Comment on above: Performed By: #### B IMPORT/EXPORT ANALYST, LIPID, T7, TSH, CMP ####[facility] [address]oeyicoo[address] [place] [address]Dr. Nahed Yañez Glucose [Mass/Vol] 111 mg/dL Critically high 74-106 T [facility] Comment on above: Performed By: #### B IMPORT/EXPORT ANALYST, LIPID, T7, TSH, CMP ####[facility] Qcwiftxpkq87[address] [place] [address]Dr. Nahed Yañez Potassium [Moles/Vol] 4.0 mmol/L Normal 3.5-5.1 [facility] Comment on above: Performed By: #### B IMPORT/EXPORT ANALYST, LIPID, T7, TSH, CMP ####[facility] Drtzgbjbdy35[address] [place] [address]Dr. Nahed Yañez Protein [Mass/Vol] 7.6 g/dL Normal 6.4-8.2 [facility] Comment on above: Performed By: #### B IMPORT/EXPORT ANALYST, LIPID, T7, TSH, CMP ####[facility] Aofvzlbhdu[address] [place], [place] [address]Dr. Nahed Yañez Sodium [Moles/Vol] 138 mmol/L Normal 136-145 [facility] Comment on above: Performed By: #### B IMPORT/EXPORT ANALYST, LIPID, T7, TSH, CMP ####[facility] [address]axusdhlqd[address] [place], [place] [address]Dr. Nahed Yañez Urea nitrogen [Mass/Vol] 17.0 mg/dL Normal 7.0-18.0 [facility] Comment on above: Performed By: #### B IMPORT/EXPORT ANALYST, LIPID, T7, TSH, CMP ####[facility] Shmanesct[address] [place], [place] [address]Dr. Nahed Yañez Urea nitrogen/Creatinine [Mass ratio] 16.8 mg/mg Normal [facility] Comment on above: Performed By: #### B IMPORT/EXPORT ANALYST, LIPID, T7, TSH, CMP ####[facility] Apurvfxlmm[address] [place], [place] [address]Dr. Nahed Yañez TSHon 05-08-2022 TSH 2.835 uIU/mL Normal 0.358-3.740 [facility] Comment on above: Performed By: #### B IMPORT/EXPORT ANALYST, LIPID, T7, TSH, CMP ####[facility] [address] [place] [id number]. Nahed Yañez VITAMIN D 25 OHon 05-08-2022 VIT D 25-OH 13.4 ng/mL Normal [facility] Comment on above: Performed By: #### V GRAEME, IRON ####[facility] [address]zvicm[address] [place] [id number]. Nahed Yañez VIT D RANGES SEE BELOW Normal [facility] Comment on above: Result Comment: <20 ng/mL Vit D deficient 20 - <30 ng/mL Vit D insufficient 30 - 100 ng/mL Vit D sufficient >100 ng/mL Potential Toxicity Performed By: #### Bianca BEDOLLA IRON ####[facility] Contrnrdbj[address] [place] [address]Dr. Nahed Yañez CARDIAC FRANCISCO 3-6on 2 CK [Catalytic activity/Vol] 37 U/L Normal 26-192 [facility] Comment on above: Performed By: #### C MREP ####[facility] [address]ow[address] [place], [place] [address]Dr. Rosemarieashley Yañez CK.MB [Mass/Vol] 0.79 ng/mL Normal <=3.60 [facility] Comment on above: Performed By: #### C MREP ####[facility] [address]xke[address] [place], [place] [address]Dr. Nahed Yañez HSTROP 55.3 pg/mL Critically high 4.0-51.3 [facility] Comment on above: Result Comment: CUT- OFF POINTS HAVE BEEN ESTABLISHED BASED ON THE FOURTH UNIVERSAL DEFINITIONS OF MYOCARDIALINFARCTION. THE UPPER REFERENCE LIMIT (URL) OF TROPONIN, DEFINED THE 99TH PERCENTILE OFcTnI DISTRIBUTION IN A REFERENCE POPULATION, HAS BEEN CONFIRMED THE DECISION THRESHOLDFOR MT DIAGNOSIS. Performed By: #### C MREP ####[facility] Iec[address]eqo[address] [place] [address]Dr. Nahed Yañez CK [Catalytic activity/Vol] 49 U/L Normal 26-192 [facility] Comment on above: Performed By: #### C MREP ####[facility] [address]judr[address] [place], [place] [address]Sx. Nahed Yañez CK.MB [Mass/Vol] 0.71 ng/mL Normal <=3.60 [facility] Comment on above: Performed By: #### C MREP ####[facility] Tsofqjb[address] [place], [place] [address]Em. Nahed Yañez HSTROP 62.6 pg/mL Critically high 4.0-51.3 [facility] Comment on above: Result Comment: CUT- OFF POINTS HAVE BEEN ESTABLISHED BASED ON THE FOURTH UNIVERSAL DEFINITIONS OF MYOCARDIALINFARCTION. THE UPPER REFERENCE LIMIT (URL) OF TROPONIN, DEFINED THE 99TH PERCENTILE OFcTnI DISTRIBUTION IN A REFERENCE POPULATION, HAS BEEN CONFIRMED THE DECISION THRESHOLDFOR MT DIAGNOSIS. Performed By: #### C MREP ####[facility] [address] [place], [place] [address]Sg. Nahed Yañez Covid-19 PCR (CVDTB)on 01-13 SARS-CoV-2 (COVID-19) RNA MIRNA+probe Ql (Unsp spec) Not detected Normal NOT DETECTED [facility] Comment on above: Result Comment: When [...] for this test is supported by the Motion Study Technician of Health and Human Service's declaration that [...] be used). Performed By: #### C VDTBH ####[facility] Vvlggmadog25[address] [place], [place] [address]Mi. Nahed Otilio ECHO LIMITED STUDYon 09-20-2 022 ECHO LIMITED STUDY Normal [facility] GLYCOHEMOGLOBIN A1Con 2021 ADA RECOMMENDATION SEE BELOW Normal [facility] Comment on above: Result Comment: ADA RECOMMENDED LIMIT 4.0 - 6.0 ADA THERAPEUTIC TARGET < 7.0 ACTION SUGGESTED > 7.0 Performed By: #### A 1C ####[facility] Zwqmgjcdxd[address] [place] [id number]. Nahed Yañez Glucose [Mass/Vol] 140 mg/dL Normal [facility] Comment on above: Performed By: #### A 1C ####[facility] Yeicrpziaq[address] [place] [address]Dr. Nahed Yañez HbA1c (Bld) [Mass fraction] 6.5 % Critically high 4.5-6.2 [facility] Comment on above: Performed By: #### A 1C ####[facility] X[address] [place], [place] [address]Dr. Nahed Yañez LIPID PROFILEon 01-31-2022 CHOL-HDL RATIO NORM SEE BELOW Normal [facility] Comment on above: Result Comment: 3.3 - 4.4 LOW RISK 4.4 - 7.1 AVERAGE RISK 7.1 - 11.0 MODERATE RISK >11.0 HIGH RISK Performed By: #### L IPID ####[facility] Txsysmrnxo[address] [place], [place] [address]Dr. Nahed Yañez Cholesterol [Mass/Vol] 152 mg/dL Normal <=200 [facility] Comment on above: Performed By: #### L IPID ####[facility] Ygommqjujn[address]34 [place] [address]Dr. Nahed Yañez Cholesterol in HDL [Mass/Vol] 74 mg/dL Critically high 40-60 [facility] Comment on above: Performed By: #### L IPID ####[facility] Eqwukmivta[address] [place] [address]Dr. Rosemarieashley Yañez Cholesterol in LDL [Mass/Vol] 62.8 mg/dL Normal [facility] Comment on above: Performed By: #### L IPID ####[facility] Rvfjtmlzeh9610 [place] [id number]. Nahed Yañez Cholesterol.total/Chol esterol in HDL [Mass ratio] 2.1 {ratio} Normal [facility] Comment on above: Performed By: #### L IPID ####[facility] E[address]khtkwbl[address] [place] [address]Dr. Nahed Yañez HDL NORMAL > or = 60 mg/dl - LO W CARDIOVASCULAR RISK <40 mg/dl - HIGH CARDIOVASCULAR RISK Normal [facility] Comment on above: Performed By: #### L IPID ####[facility] Cnljgkmkvt97[address] [place] [address]Dr. Rosemarieashley Yañez LDL CALC NORMAL SEE BELOW Normal [facility] Comment on above: Result Comment: <100 mg/dl OPTIMAL 100 - 129 mg/dl NEAR OR ABOVE OPTIMAL 130 - 159 mg/dl BORDERLINE HIGH 160 - 189 mg/dl HIGH >190 mg/dl VERY HIGH Performed By: #### L IPID ####[facility] Ihndwoptav[address] [place] [address]Dr. Nahed Yañez Triglyceride [Mass/Vol] 76 mg/dL Normal <=150 [facility] Comment on above: Performed By: #### L IPID ####[facility] Mbmbcgcfoo1086 [place] [address]Dr. Rosemarieashley Otilio VLDL CALC 15.2 mg/dL Normal [facility] Comment on above: Performed By: #### L IPID ####[facility] Mueqnsitfq57[address] [place] [address]Dr. Nahed Yañez XR CHEST 1 Von 01-31-2022 XR CHEST 1 V Normal [facility] BNPon 01-30-2022 Natriuretic peptide B (Bld) [Mass/Vol] 150.0 pg/mL Normal <=900.0 [facility] Comment on above: Performed By: #### B MP, BNP, CMADM ####[facility] Guvojcvbmr5[address] [place] [address]Dr. Nahed Yañez CARDIAC FRANCISCO ADMITon 022 CK [Catalytic activity/Vol] 88 U/L Normal 26-192 [facility] Comment on above: Performed By: #### B MP, BNP, CMADM ####[facility] Zneebdcybq0907 [place] [address]Dr. Nahed Yañez CK.MB [Mass/Vol] 1.26 ng/mL Normal <=3.60 [facility] Comment on above: Performed By: #### B MP, BNP, CMADM ####[facility] Smuvcnhtpo[address] [place] [address]Dr. Nahed Yañez HSTROP 69.3 pg/mL Critically high 4.0-51.3 [facility] Comment on above: Result Comment: CUT- OFF POINTS HAVE BEEN ESTABLISHED BASED ON THE FOURTH UNIVERSAL DEFINITIONS OF MYOCARDIALINFARCTION. THE UPPER REFERENCE LIMIT (URL) OF TROPONIN, DEFINED THE 99TH PERCENTILE OFcTnI DISTRIBUTION IN A REFERENCE POPULATION, HAS BEEN CONFIRMED THE DECISION THRESHOLDFOR MT DIAGNOSIS. Performed By: #### B MP, BNP, CMADM ####[facility] Cdbrvaftie[address] [place], [place] [address]Dr. Nahed Yañez ANDRE 59 ng/mL Normal 9-82 [facility] Comment on above: Performed By: #### B MP, BNP, CMADM ####[facility] Bwvnyubwgf22[address] [place] [address]Dr. Nahed Yañez CBC AUTO DIFFon 01-30-2022 BASO # 0.0 103/ul Normal 0.0-0.1 [facility] Comment on above: Performed By: #### C BC ####[facility] Apprebchsp64[address] [place] [address]Dr. Nahed Yañez Basophils/100 WBC (Bld) 0.2 % Normal 0.2-2.0 [facility] Comment on above: Performed By: #### C BC ####[facility] Xjljpcvvkh43[address] [place] [address]Dr. Nahed Yañez EO # 0.1 103/ul Normal 0.0-0.7 [facility] Comment on above: Performed By: #### C BC ####[facility] [address]vxzlywcnz[address] [place], [place] [address]Dr. Nahed Yañez Eosinophils/100 WBC (Bld) 0.8 % Critically low 0.9-7.0 [facility] Comment on above: Performed By: #### C BC ####[facility] Ljoahjcqtd6953 [place] [address]Dr. Nahed Yañez Erythrocyte distribution width (RBC) [Ratio] 14.9 % Normal 11.0-15.0 [facility] Comment on above: Performed By: #### C BC ####[facility] Tkxrbzdkih94[address] [place] [address]Dr. Nahed Yañez Hematocrit (Bld) [Volume fraction] 45.8 % Normal 36.0-48.0 [facility] Comment on above: Performed By: #### C BC ####[facility] R[address]mbxsqqcp[address] [place], [place] [address]Dr. Nahed Yañez Hemoglobin (Bld) [Mass/Vol] 14.7 g/dL Normal 12.0-16.0 [facility] Comment on above: Performed By: #### C BC ####[facility] Y[address]jztuk[address] [place], [place] [address]Dr. Nahed Yañez IG # 0.07 10e3/ul Critically high 0.00-0.03 [facility] Comment on above: Performed By: #### C BC ####[facility] Lbpgouevem[address] [place], [place] [address]Dr. Nahed Yañez IG % 0.4 % Normal 0.0-0.5 [facility] Comment on above: Performed By: #### C BC ####[facility] Ldzrrakfis[address] [place], [place] [address]Dr. Nahed Yañez LYMPH # 2.3 103/ul Normal 1.2-3.8 [facility] Comment on above: Performed By: #### C BC ####[facility] Ygconzavtz[address] [place], [place] [address]Dr. Nahed Yañez Lymphocytes/100 WBC (Bld) 12.5 % Critically low 20.5-60.0 [facility] Comment on above: Performed By: #### C BC ####[facility] Vnyowjsxsz[address] [place], [place] [address]Dr. Nahed Yañez MANUAL DIFF REQ NO Normal [facility] Comment on above: Performed By: #### C BC ####[facility] Uoasdqixhe[address] [place] [id number]. Nahed Yañez MCH (RBC) [Entitic mass] 28.0 pg Normal 26.7-34.0 [facility] Comment on above: Performed By: #### C BC ####[facility] Jyrmlnhkle[address] [place] [id number]. Nahed Yañez MCHC (RBC) [Mass/Vol] 32.1 g/dL Normal 29.9-35.2 [facility] Comment on above: Performed By: #### C BC ####[facility] Bzwerzikqf94[address] [place] [id number]. Nahed Otilio MCV (RBC) [Entitic vol] 87.2 fL Normal 81.0-99.0 [facility] Comment on above: Performed By: #### C BC ####[facility] [address]wbkqrnsrn[address] [place], [place] [address]Dr. Nahed Yañez MONO # 0.9 103/ul Critically high 0.3-0.8 [facility] Comment on above: Performed By: #### C BC ####[facility] Cibofjpbft6185 [place] [address]Dr. Rosemarieashley Yañez Monocytes/100 WBC (Bld) 5.1 % Normal 1.7-12.0 [facility] Comment on above: Performed By: #### C BC ####[facility] Y[address] [place], [place] [address]Dr. Rosemarieashley Yañez NEUT # 14.6 103/ul Critically high 1.4-6.5 [facility] Comment on above: Performed By: #### C BC ####[facility] Xghgrvobdu3965 [place] [id number]. Nahed Yañez Neutrophils/100 WBC (Bld) 81.0 % Critically high 43.0-75.0 [facility] Comment on above: Performed By: #### C BC ####[facility] [address]iyn[address] [place], [place] [address]Dr. Nahed Yañez Platelet mean volume (Bld) [Entitic vol] 10.3 fL Normal 9.5-13.5 [facility] Comment on above: Performed By: #### C BC ####[facility] Yqpbvpicwt[address]28 [place] [address]Dr. Nahed Yañez PLT 280 103/ul Normal 150-450 [facility] Comment on above: Performed By: #### C BC ####[facility] Utzyvlquok[address] [place] [address]Dr. Nahed Yañez RBC 5.25 106/ul Normal 4.20-5.40 [facility] Comment on above: Performed By: #### C BC ####[facility] Buincduxzl[address] [place] [address]Dr. Nahed Otilio WBC 18.1 103/ul Critically high 4.0-11.0 [facility] Comment on above: Performed By: #### C BC ####[facility] Wtetnemekb20[address] [place] [address]Dr. Nahed Yañez PROF CHEM 8 (BAS METB)on Anion gap [Moles/Vol] 13.5 mmol/L Normal [facility] Comment on above: Performed By: #### B MP, BNP, CMADM ####[facility] Ygwidgmhsx3294 [place] [address]Dr. Nahed Yañez Calcium [Mass/Vol] 9.5 mg/dL Normal 8.5-10.1 [facility] Comment on above: Performed By: #### B MP, BNP, CMADM ####[facility] Qpmplyveqx4871 [place] [address]Dr. Nahed Yañez Chloride [Moles/Vol] 102 mmol/L Normal 98-107 [facility] Comment on above: Performed By: #### B MP, BNP, CMADM ####[facility] Ypngndqfvf2392 [place] [address]Dr. Nahed Yañez CO2 [Moles/Vol] 26.6 mmol/L Normal 21.0-32.0 [facility] Comment on above: Performed By: #### B MP, BNP, CMADM ####[facility] Xmrrutqwpe[address]70 [place] [address]Dr. Yilan Yañez Creatinine [Mass/Vol] 1.06 mg/dL Critically high 0.55-1.02 [facility] Comment on above: Performed By: #### B MP, BNP, CMADM ####[facility] Jokevmrnla[address] [place] [address]Dr. Nahed Yañez EGFR-AF SOL[place] ISLANDER >60 Normal >=60 [facility] Comment on above: Performed By: #### B MP, BNP, CMADM ####[facility] Ydratfzwll3939 [place] [address]Dr. Nahed Yañez EGFR-NON AF [place] ISLANDER 53 mL/min/1.73m2 Critically low >=60 [facility] Comment on above: Performed By: #### B MP, BNP, CMADM ####[facility] Ujugofwfjw5762 [place] [address]Dr. Nahed Yañez Glucose [Mass/Vol] 108 mg/dL Critically high 74-106 [facility] Comment on above: Performed By: #### B MP, BNP, CMADM ####[facility] Wizvfwwddc7419 [place] [address]Dr. Nahed Yañez Potassium [Moles/Vol] 4.1 mmol/L Normal 3.5-5.1 [facility] Comment on above: Performed By: #### B MP, BNP, CMADM ####[facility] [address] [place] [address]Dr. Nahed Yañez Sodium [Moles/Vol] 138 mmol/L Normal 136-145 [facility] Comment on above: Performed By: #### B MP, BNP, CMADM ####[facility] [address] [place] [address]Dr. Nahed Yañez Urea nitrogen [Mass/Vol] 9.0 mg/dL Normal 7.0-18.0 [facility] Comment on above: Performed By: #### B MP, BNP, CMADM ####[facility] [address] [place] [address]Dr. Nahed Yañez Urea nitrogen/Creatinine [Mass ratio] 8.5 mg/mg Normal [facility] Comment on above: Performed By: #### B MP, BNP, CMADM ####[facility] [address] [place], [place] [address]PmShaun Yañez Cardiovascular Lab Reporton 11-03-2021 Cardiovascular Lab Report [facility] Patient Name: Vivian Vann [facility] MR #: [id number] Physician: Gasper Avendano, Department of M.D. Medicine Service Date: 11/02/2021 Division of Birthdate: 1960 Cardiology Room #: 4AB [id number] Adult Cardiovascular Services Formerly [facility] [address] [place] [address] Cardiovascular Laboratory Report FINAL IMPRESSIONS: 1. Severe, [...] anterior descending coronary artery, placement of a 6-Equatorial [place] MynxGrip closure device. METHODS: After risks, benefits, and alternatives were explained, written informed consent was obtained. The patient was prepped and draped in usual sterile fashion over both groins. Using 1% lidocaine solution, local infiltration anesthesia was achieved over the right groin. Under ultrasound guidance, a micropuncture kit was used to access the right common femoral artery. This was upsized to a 6-Equatorial [place]ine[place] 11 cm sheath. Angiography via the 6-Equatorial [place]ine[place] sheath was performed. Bilateral selective coronary angiography was performed using JL4 and JR4 catheters. After reviewing the images, it was elected to proceed with an interventional procedure. A 6-Equatorial [place] XB3.5 guide catheter was advanced over a [...] artery, angiography was repeated initially using a 6-Equatorial [place] 3DRC catheter and subsequently using a 4-Equatorial [place] JR4 catheter. After administration of intracoronary nitroglycerin, the concerning lesion almost completely resolved. There was a residual mild stenosis. All catheters removed. A 6-Equatorial [place] MynxGrip closure device was deployed per protocol [...] and anatomy suitable for closure device. INDICATION: Asr-HM-fdrsxunzu myocardial infarction. Electronically Signed by: Gasper Avendano M.D. 11/21/2021 02:07 P Titusab Tristan Avendano (more content not included)... Normal [facility] CBC COMPLETE BLOOD COUNTon 0 11-02-2021 Erythrocyte distribution width (RBC) [Ratio] 14.7 % Normal 11.5-15.0 [facility] Comment on above: Order Comment: No: D o not add to previous draw Performed By: #### 3 5200, 37963 #### [facility] [address] [place] [address], [facility] Hematocrit (Bld) [Volume fraction] 34.5 % Low 36.0-45.0 [facility] Comment on above: Order Comment: No: D o not add to previous draw Performed By: #### 3 5200, 71033 #### [facility] [address] [place] [address], [place] Hemoglobin (Bld) [Mass/Vol] 10.6 g/dL Low 12.0-15.0 [facility] Comment on above: Order Comment: No: D o not add to previous draw Performed By: #### 3 5200, 43916 #### [facility] [address] [place] [address], [place] MCH (RBC) [Entitic mass] 28.1 pg Normal 27.0-33.0 [facility] Comment on above: Order Comment: No: D o not add to previous draw Performed By: #### 3 5200, 23360 #### [facility] [address] [place] [address], [place] MCHC (RBC) [Mass/Vol] 30.7 g/dL Low 32.0-35.0 [facility] Comment on above: Order Comment: No: D o not add to previous draw Performed By: #### 3 5200, 16563 #### [facility] [address] [place] [address], [facility] MCV (RBC) [Entitic vol] 91.5 fL Normal 82.0-98.0 [facility] Comment on above: Order Comment: No: D o not add to previous draw Performed By: #### 3 5200, 99373 #### [facility] [address] [place] [id number], [facility] Nucleated RBC/100 WBC (Bld) [Ratio] 0 % Normal 0-0 [facility] Comment on above: Order Comment: No: D o not add to previous draw Performed By: #### 3 0, 99219 #### [facility] [address] [place] [address], [facility] PLAT CNT 219 10*3/uL Normal 150-400 [facility] Comment on above: Order Comment: No: D o not add to previous draw Performed By: #### 3 5199, 50003 #### [facility] [address] [facility] [place] [address], [facility] RBC (Bld) [#/Vol] 3.77 10*6/uL Low 3.80-5.00 [facility] Comment on above: Order Comment: No: D o not add to previous draw Performed By: #### 3 0, 88645 #### [facility] [address] [place] [id number], [facility] WBC (Bld) [#/Vol] 13.64 10*3/uL High 4.00-10.60 [facility] Comment on above: Order Comment: No: D o not add to previous draw Performed By: #### 3 5200, 16593 #### [facility] [address] [place] [id number], [facility] HEMOGLOBIN A1Con 11-02-2021 Glucose [Moles/Vol] 140 mmol/L Normal [facility] Comment on above: Order Comment: No: D o not add to previous draw Performed By: #### 3 1791 #### [facility] [address] [place] [address], [facility] HbA1c (Bld) [Mass fraction] 6.5 % High 4.0-6.0 [facility] Comment on above: Order Comment: No: D o not add to previous draw Performed By: #### 3 1791 #### [facility] [address] [place] [address], [facility] LIPID PROFILEon 11-02-2021 Cholesterol [Mass/Vol] 171 mg/dL Normal 120-200 [facility] Comment on above: Order Comment: No: D o not add to previous draw Result Comment: CHOL ESTEROL REFERENCE RANGE: 20 YEARS AND OLDER CARDIOVASCULAR RISK Less than 200 mg/dl Low Risk 200 to 239 mg/dl Borderline Risk 240 mg/dl and greater High Risk Performed By: #### 3 5200, 17042 #### [facility] [address] [facility] [place] [address], [facility] Cholesterol in HDL [Mass/Vol] 57 mg/dL Normal 23-92 [facility] Comment on above: Order Comment: No: D o not add to previous draw Result Comment: Slig ht variation in normal range could be due to gender and/or age. HDL CHOLESTEROL REFERENCE RANGE: 20 years and older Cardiovascular Risk > or =60 mg/dL Desirable 40 TO 59 mg/dL Low Risk <40 mg/dL High Risk Performed By: #### 3 5200, 08547 #### [facility] [address] [place] [address], [facility] Cholesterol in LDL [Mass/Vol] 89 mg/dL Normal 0-130 [facility] Comment on above: Order Comment: No: D o not add to previous draw Result Comment: LDL IS A CALCULATION LDL IS ONLY VALID IF THE TRIG IS LESS THAN 400. Performed By: #### 3 5200, 76710 #### [facility] [address] [place] [address], [facility] Cholesterol.total/Chol esterol in HDL [Mass ratio] 3.0 {ratio} Normal .0-4.5 [facility] Comment on above: Order Comment: No: D o not add to previous draw Performed By: #### 3 5200, 79307 #### [facility] [address] [place] [address], [facility] NON-HDL CHOLESTEROL 114 mg/dL Normal [facility] Comment on above: Order Comment: No: D o not add to previous draw Performed By: #### 3 5200, 97159 #### [facility] [address] Triglyceride [Mass/Vol] 124 mg/dL Normal 40-149 [facility] Comment on above: Order Comment: No: D o not add to previous draw Result Comment: TRIG LYCERIDE REFERENCE RANGE: 20 YEARS AND OLDER CARDIOVASCULAR RISK LESS THAN 150 mg/dl LOW RISK 150 TO 199 mg/dl BORDERLINE RISK 200 mg/dl AND GREATER HIGH RISK Performed By: #### 3 7280, 16529 #### [facility] [address] [place] [address], [facility] VLDL CHOL 25 mg/dL Normal 0-40 [facility] Comment on above: Order Comment: No: D o not add to previous draw Performed By: #### 3 5200, 83717 #### [facility] [address] [place] [address], [facility] TROPONIN-Ion 11-02-2021 Troponin I.cardiac [Mass/Vol] 0.14 ng/mL Critically high 0.00-0.04 [facility] Comment on above: Result Comment: M-RI EVIOUS CRITICAL RESULT REFERENCE RANGES: 0.00 - 0.04 ng/ml NORMAL 0.05 - 0.50 ng/ml INDETERMINATE > 0.50 ng/ml CONSISTENT WITH AN M.I. Performed By: #### 3 5200, 25830 #### [facility] [address] [place] [address], [facility] Troponin I.cardiac [Mass/Vol] 0.19 ng/mL Critically high 0.00-0.04 [facility] Comment on above: Order Comment: No: D o not add to previous draw Result Comment: M-RI EVIOUS CRITICAL RESULT REFERENCE RANGES: 0.00 - 0.04 ng/ml NORMAL 0.05 - 0.50 ng/ml INDETERMINATE > 0.50 ng/ml CONSISTENT WITH AN M.I. Performed By: #### 3 5200 #### [facility] [address] [place] [address], [facility] TYPE AND SCREENon 11-02-2021 ABO INTERPRETATION O Normal [facility] Comment on above: Performed By: #### 3 5200, 29056 #### [facility] [address] [facility] [place] [address], [facility] RH INTERPRETATION Positive Normal [facility] Comment on above: Performed By: #### 3 5200, 91356 #### [facility] [address] UFH HEPARIN ASSAYon 11-03-19 UNFRACTIONATED HEPARIN 0.76 IU/mL High 0.30-0.70 [facility] Comment on above: Result Comment: Clare roxaban and Apixaban will interfere with the anti Xa assay used to monitor UFH and LMWH. Performed By: #### 3 5200, 22263 #### [facility] [address] UNFRACTIONATED HEPARIN 0.96 IU/mL Critically high 0.30-0.7 0 [facility] Comment on above: Result Comment: Resu lt checked and called. Accurately read back by Kathy Suárez RN at 0548 Rivaroxaban and Apixaban will interfere with the anti Xa assay used to monitor UFH and LMWH. Performed By: #### 3 4977 #### [facility] [address] [place] [address], [facility] APTTon 11-01-2021 aPTT Coag (Bld) [Time] 28.6 s Normal 25.0-35.0 [facility] Comment on above: Order Comment: No: [...] THIS PURPOSE. Performed By: #### 3 5200, 87809 #### [facility] [address] BNPon 11-01-2021 Natriuretic peptide B (Bld) [Mass/Vol] 9643.0 pg/mL Critically high <=900.0 [facility] Comment on above: Performed By: #### C MP, BNP, HSTROPN ####[facility] Rsas[address] [place], [place] [address]Dr. Nahed Yañez BNP (B-TYPE NATRIURETIC PEPT AYLEEN)on 11-01-2021 Natriuretic peptide B (Bld) [Mass/Vol] 768 pg/mL High 0-100 [facility] Comment on above: Order Comment: No: D o not add to previous draw Result Comment: Give n the appropriate clinical setting a BNP result of >100 pg/mL indicates congestive heart failure. Performed By: #### 8 5123 #### [facility] [address] CBC AUTO DIFFon 11-01-2021 BASO # 0.0 103/ul Normal 0.0-0.1 The [facility] Comment on above: Performed By: #### C BC ####[facility] Uc[address] [place], [place] [address]Dr. Nahed Yañez Basophils/100 WBC (Bld) 0.1 % Critically low 0.2-2.0 The [facility] Comment on above: Performed By: #### C BC ####[facility] Spr[address] [place], [place] [address]Dr. Nahed Yañez EO # 0.0 103/ul Normal 0.0-0.7 The [facility] Comment on above: Performed By: #### C BC ####[facility] [address] [place] [address]Dr. Nahed Yañez Eosinophils/100 WBC (Bld) 0.0 % Critically low 0.9-7.0 [facility] Comment on above: Performed By: #### C BC ####[facility] [address] [place] [address]Dr. Nahed Yañez Erythrocyte distribution width (RBC) [Ratio] 14.7 % Normal 11.0-15.0 [facility] Comment on above: Performed By: #### C BC ####[facility] [address]ms[address] [place] [address]Dr. Nahed Yañez Hematocrit (Bld) [Volume fraction] 36.1 % Normal 36.0-48.0 [facility] Comment on above: Performed By: #### C BC ####[facility] [address]im[address] [place], [place] [address]Dr. Nahed Yañez Hemoglobin (Bld) [Mass/Vol] 11.1 g/dL Critically low 12.0-16.0 The [facility] Comment on above: Result Comment: IV a ntibiotics Performed By: #### C BC ####[facility] Ruuc[address] [place], [place] [address]Dr. Nahed Yañez IG # 0.09 10e3/ul Critically high 0.00-0.03 [facility] Comment on above: Performed By: #### C BC ####[facility] [address] [place], [place] [address]Dr. Nahed Yañez IG % 0.7 % Critically high 0.0-0.5 The [facility] Comment on above: Performed By: #### C BC ####[facility] [address] [place], [place] [address]Dr. Nahed Yañez LYMPH # 0.6 103/ul Critically low 1.2-3.8 [facility] Comment on above: Performed By: #### C BC ####[facility] Kn[address] [place], [place] [address]Dr. Nahed Yañez Lymphocytes/100 WBC (Bld) 4.8 % Critically low 20.5-60.0 [facility] Comment on above: Performed By: #### C BC ####[facility] [address] [place] [address]Dr. Nahed Yañez MANUAL DIFF REQ NO Normal [facility] Comment on above: Performed By: #### C BC ####[facility] [address] [place] [id number]. Nahed Yañez MCH (RBC) [Entitic mass] 28.2 pg Normal 26.7-34.0 [facility] Comment on above: Performed By: #### C BC ####[facility] Mkgtg[address]w14[address] [place] [address]Dr. Nahed Yañez MCHC (RBC) [Mass/Vol] 30.7 g/dL Normal 29.9-35.2 The [facility] Comment on above: Performed By: #### C BC ####[facility] [address] [place], [place] [address]Dr. Nahed Yañez MCV (RBC) [Entitic vol] 91.9 fL Normal 81.0-99.0 [facility] Comment on above: Performed By: #### C BC ####[facility] [address] [place], [place] [address]DrShaun Yañez MONO # 0.2 103/ul Critically low 0.3-0.8 [facility] Comment on above: Performed By: #### C BC ####[facility] [address] [place], [place] [address]Dr. Nahed Yañez Monocytes/100 WBC (Bld) 1.7 % Normal 1.7-12.0 The [facility] Comment on above: Performed By: #### C BC ####[facility] [address] [place], [place] [address]DrShaun Yañez NEUT # 11.2 103/ul Critically high 1.4-6.5 The [facility] Comment on above: Performed By: #### C BC ####[facility] [address] [place], [place] [address]DrShaun Yañez Neutrophils/100 WBC (Bld) 92.7 % Critically high 43.0-75.0 [facility] Comment on above: Performed By: #### C BC ####[facility] [address] [place] [address]Dr. Nahed Yañez Platelet mean volume (Bld) [Entitic vol] 11.1 fL Normal 9.5-13.5 [facility] Comment on above: Performed By: #### C BC ####[facility] [address] [place] [address]Dr. Nahed Yañez PLT 213 103/ul Normal 150-450 The [facility] Comment on above: Performed By: #### C BC ####[facility] [address]ec[address] [place] [address]Dr. Nahed Yañez RBC 3.93 106/ul Critically low 4.20-5.40 The [facility] Comment on above: Performed By: #### C BC ####[facility] [address] [place] [address]Dr. Nahed Yañez WBC 12.0 103/ul Critically high 4.0-11.0 The [facility] Comment on above: Performed By: #### C BC ####[facility] [address]co[address] [place] [id number]. Nahed Yañez CBC W/DIFFon 11-01-2021 ABS IMM GRANS 0.2 10*3/uL Normal 0.0-0.2 [facility] Comment on above: Order Comment: No: D o not add to previous draw Performed By: #### 3 6340, 40191 #### [facility] [address] [facility] [place] [address], [facility] ABS NEUTROPHILS 12.5 10*3/uL High 1.6-7.6 [facility] Comment on above: Order Comment: No: D o not add to previous draw Performed By: #### 3 5200, 66724 #### [facility] [address] [place] [address], [place] Basophils (Bld) [#/Vol] 0.0 10*3/uL Normal 0.0-0.2 [facility] Comment on above: Order Comment: No: D o not add to previous draw Performed By: #### 3 5200, 76512 #### [facility] [address] [place] [address], [place] Basophils/100 WBC (Bld) 0.0 % Normal 0.0-1.0 [facility] Comment on above: Order Comment: No: D o not add to previous draw Performed By: #### 3 5199, 30603 #### [facility] [address] [place] [address], [place] Eosinophils (Bld) [#/Vol] 0.0 10*3/uL Normal 0.0-0.5 [facility] Comment on above: Order Comment: No: D o not add to previous draw Performed By: #### 3 5199, 21808 #### [facility] [address] [place] [address], [place] Eosinophils/100 WBC (Bld) 0.0 % Normal 0.0-6.0 [facility] Comment on above: Order Comment: No: D o not add to previous draw Performed By: #### 3 5199, 10645 #### [facility] [address] [place] [address], [place] Erythrocyte distribution width (RBC) [Ratio] 14.6 % Normal 11.5-15.0 [facility] Comment on above: Order Comment: No: D o not add to previous draw Performed By: #### 3 5199, 41808 #### [facility] [address] [place] [address], [place] Hematocrit (Bld) [Volume fraction] 36.6 % Normal 36.0-45.0 [facility] Comment on above: Order Comment: No: D o not add to previous draw Performed By: #### 3 5199, 21081 #### [facility] [address] [place] [address], [place] Hemoglobin (Bld) [Mass/Vol] 11.4 g/dL Low 12.0-15.0 [facility] Comment on above: Order Comment: No: D o not add to previous draw Performed By: #### 3 5200, 57480 #### [facility] [address] [place] [address], [place] IMMATURE GRANS 1.2 % High 0.0-1.0 [facility] Comment on above: Order Comment: No: D o not add to previous draw Performed By: #### 3 5200, 91243 #### [facility] [address] [place] [address], [place] Lymphocytes (Bld) [#/Vol] 0.6 10*3/uL Low 1.2-4.0 [facility] Comment on above: Order Comment: No: D o not add to previous draw Performed By: #### 3 5200, 30105 #### [facility] [address] [place] [address], [place] Lymphocytes/100 WBC (Bld) 4.2 % Low 20.0-45.0 [facility] Comment on above: Order Comment: No: D o not add to previous draw Performed By: #### 3 5200, 41030 #### [facility] [address] [place] [address], [place] MCH (RBC) [Entitic mass] 28.2 pg Normal 27.0-33.0 [facility] Comment on above: Order Comment: No: D o not add to previous draw Performed By: #### 3 5200, 99656 #### [facility] [address] [place] [address], [place] MCHC (RBC) [Mass/Vol] 31.1 g/dL Low 32.0-35.0 [facility] Comment on above: Order Comment: No: D o not add to previous draw Performed By: #### 3 5200, 29708 #### [facility] [address] [place] [address], [facility] MCV (RBC) [Entitic vol] 90.6 fL Normal 82.0-98.0 [facility] Comment on above: Order Comment: No: D o not add to previous draw Performed By: #### 3 0, 73144 #### [facility] [address] [place] [address], [facility] Monocytes (Bld) [#/Vol] 0.5 10*3/uL Normal 0.1-1.0 [facility] Comment on above: Order Comment: No: D o not add to previous draw Performed By: #### 3 5199, 40373 #### [facility] [address] [facility] [place] [address], [facility] MONOS 3.3 % Low 5.0-12.0 [facility] Comment on above: Order Comment: No: D o not add to previous draw Performed By: #### 3 5199, 35329 #### [facility] [address] [facility] [place] [address], [facility] Neutrophils/100 WBC (Bld) 91.3 % High 40.0-72.0 [facility] Comment on above: Order Comment: No: D o not add to previous draw Performed By: #### 3 5199, 41504 #### [facility] [address] [facility] [place] [address], [facility] Nucleated RBC/100 WBC (Bld) [Ratio] 0 % Normal 0-0 [facility] Comment on above: Order Comment: No: D o not add to previous draw Performed By: #### 3 0, 29570 #### [facility] [address] [facility] [place] [address], [facility] PLAT CNT 224 10*3/uL Normal 150-400 [facility] Comment on above: Order Comment: No: D o not add to previous draw Performed By: #### 3 5199, 60557 #### [facility] [address] [place] [address], [facility] RBC (Bld) [#/Vol] 4.04 10*6/uL Normal 3.80-5.00 [facility] Comment on above: Order Comment: No: D o not add to previous draw Performed By: #### 3 5200, 81523 #### [facility] [address] [place] [address], [facility] WBC (Bld) [#/Vol] 13.70 10*3/uL High 4.00-10.60 [facility] Comment on above: Order Comment: No: D o not add to previous draw Performed By: #### 3 5200, 31191 #### [facility] [address] [place] [address], [facility] COMP METABOLIC PANELon 11-01 Albumin [Mass/Vol] 3.7 g/dL Normal 3.5-5.7 [facility] Comment on above: Order Comment: No: D o not add to previous draw Performed By: #### 0 0121, 47278, 77753 #### [facility] [address] [place] [address], [facility] ALKALINE PHOSPH 54 IU/L Normal 34-104 [facility] Comment on above: Order Comment: No: D o not add to previous draw Performed By: #### 0 0121, 14076, 21792 #### [facility] [address] [place] [address], [facility] ALT [Catalytic activity/Vol] 12 U/L Normal 7-52 [facility] Comment on above: Order Comment: No: D o not add to previous draw Performed By: #### 0 0121, 64134, 74760 #### [facility] [address] [place] [address], [place] AST [Catalytic activity/Vol] 17 U/L Normal 13-39 [facility] Comment on above: Order Comment: No: D o not add to previous draw Performed By: #### 0 0121, 65347, 34751 #### [facility] [address] [place] [address], [place] Bilirubin [Mass/Vol] 0.3 mg/dL Normal 0.3-1.0 [facility] Comment on above: Order Comment: No: D o not add to previous draw Performed By: #### 0 0121, 07167, 46706 #### [facility] [address] [place] [address], [place] Calcium [Mass/Vol] 9.4 mg/dL Normal 8.6-10.3 [facility] Comment on above: Order Comment: No: D o not add to previous draw Performed By: #### 0 0121, 41148, 49752 #### [facility] [address] [place] [address], [place] Chloride [Moles/Vol] 100 mmol/L Normal 98-107 [facility] Comment on above: Order Comment: No: D o not add to previous draw Performed By: #### 0 0121, 81299, 85060 #### [facility] [address] [place] [address], [place] CO2 [Moles/Vol] 29 mmol/L Normal 21-31 [facility] Comment on above: Order Comment: No: D o not add to previous draw Performed By: #### 0 0121, 19569, 46496 #### [facility] [address] [place] [address], [place] Creatinine [Mass/Vol] 1.04 mg/dL Normal 0.60-1.20 [facility] Comment on above: Order Comment: No: D o not add to previous draw Performed By: #### 0 0121, 82517, 22579 #### [facility] [address] [place] [address], [place] eGFR- non- 54 ml/min/1.73sq m Abnormal >60 [facility] Comment on above: Order Comment: No: D o not add to previous draw Performed By: #### 0 0121, 52950, 98233 #### [facility] [address] [place] [address], [place] GFR/1.73 sq M.predicted among blacks MDRD (S/P/Bld) [Vol rate/Area] mL/min/{1.73_m2} Normal >60 [facility] Comment on above: Order Comment: No: D o not add to previous draw Performed By: #### 0 0121, 78613, 04967 #### [facility] [address] [place] [address], [place] Glucose [Mass/Vol] 239 mg/dL High 70-100 [facility] Comment on above: Order Comment: No: D o not add to previous draw Performed By: #### 0 0121, 98365, 73734 #### [facility] [address] [place] [address], [place] Potassium [Moles/Vol] 4.3 mmol/L Normal 3.5-5.1 [facility] Comment on above: Order Comment: No: D o not add to previous draw Performed By: #### 0 0121, 68363, 87143 #### [facility] [address] [place] [address], [place] Protein [Mass/Vol] 5.6 g/dL Low 6.0-8.3 [facility] Comment on above: Order Comment: No: D o not add to previous draw Performed By: #### 0 0121, 11548, 90829 #### [facility] [address] [place] [address], [place] Sodium [Moles/Vol] 139 mmol/L Normal 136-145 [facility] Comment on above: Order Comment: No: D o not add to previous draw Performed By: #### 0 0121, 62755, 68439 #### [facility] [address] [place] [address], [place] Urea nitrogen [Mass/Vol] 24 mg/dL Normal 7-25 [facility] Comment on above: Order Comment: No: D o not add to previous draw Performed By: #### 0 0121, 07358, 69035 #### [facility] [address] [place] [address], [facility] MAGNESIUM BLOODon 11-01-2021 Magnesium [Mass/Vol] 2.0 mg/dL Normal 1.9-2.7 [facility] Comment on above: Order Comment: No: D o not add to previous draw Performed By: #### 0 0121, 50382, 23037 #### [facility] [address] [place] [address], [facility] PROF 14(COMP METB)on 022 Albumin [Mass/Vol] 3.1 g/dL Critically low 3.4-5.0 [facility] Comment on above: Performed By: #### C MP, BNP, HSTROPN ####[facility] [address] [place] [address]Dr. Nahed Yañez Albumin/Globulin [Mass ratio] 1.0 {ratio} Normal [facility] Comment on above: Performed By: #### C MP, BNP, HSTROPN ####[facility] [address]me[address] [place] [id number]. Nahed Yañez ALP [Catalytic activity/Vol] 56 U/L Normal 46-116 [facility] Comment on above: Performed By: #### C MP, BNP, HSTROPN ####[facility] [address]poqu[address] [place] [id number]. Nahed Yañez ALT [Catalytic activity/Vol] 19 U/L Normal 14-59 [facility] Comment on above: Performed By: #### C MP, BNP, HSTROPN ####[facility] Hvmxjskmxp[address] [place] [address]Dr. Nahed Yañez Anion gap [Moles/Vol] 14.3 mmol/L Normal [facility] Comment on above: Performed By: #### C MP, BNP, HSTROPN ####[facility] O[address]zytzepk[address] [place] [address]Dr. Nahed Yañez AST [Catalytic activity/Vol] 18 U/L Normal 15-37 [facility] Comment on above: Performed By: #### C MP, BNP, HSTROPN ####[facility] Rtxjgfpdiq12[address] [place] [address]Dr. Nahed Yañez Bilirubin [Mass/Vol] 0.4 mg/dL Normal 0.2-1.0 [facility] Comment on above: Performed By: #### C MP, BNP, HSTROPN ####[facility] Psh[address]eplk[address] [place] [address]Dr. Nahed Yañez Calcium [Mass/Vol] 9.3 mg/dL Normal 8.5-10.1 [facility] Comment on above: Performed By: #### C MP, BNP, HSTROPN ####[facility] Y[address] [place], [place] [address]Dr. Nahed Yañez Chloride [Moles/Vol] 102 mmol/L Normal 98-107 [facility] Comment on above: Performed By: #### C MP, BNP, HSTROPN ####[facility] X[address] [place], [place] [address]Dr. Nahed Yañez CO2 [Moles/Vol] 27.1 mmol/L Normal 21.0-32.0 [facility] Comment on above: Performed By: #### C MP, BNP, HSTROPN ####[facility] Qav[address] [place], [place] [address]Dr. Nahed Yañez Creatinine [Mass/Vol] 1.25 mg/dL Critically high 0.55-1.02 [facility] Comment on above: Performed By: #### C MP, BNP, HSTROPN ####[facility] Umjee[address] [place], [place] [address]Dr. Nahed Yañez EGFR-AF [place]LANDER 53 mL/min/1.73m2 Critically low >=60 [facility] Comment on above: Performed By: #### C MP, BNP, HSTROPN ####[facility] [address]zw[address] [place] [address]Dr. Nahed Yañez EGFR-NON AF [place] 44 mL/min/1.73m2 Critically low >=60 [facility] Comment on above: Performed By: #### C MP, BNP, HSTROPN ####[facility] Ilixnmjmhs[address] [place] [address]Dr. Nahed Yañez Globulin (S) [Mass/Vol] 3.2 g/dL Normal [facility] Comment on above: Performed By: #### C MP, BNP, HSTROPN ####[facility] Chidtvvivs[address] [place] [address]Dr. Nahed Yañez Glucose [Mass/Vol] 248 mg/dL Critically high 74-106 T [facility] Comment on above: Performed By: #### C MP, BNP, HSTROPN ####[facility] Fczsnbybf[address] [place], [place] [address]Dr. Nahed Yañez Potassium [Moles/Vol] 3.4 mmol/L Critically low 3.5-5.1 [facility] Comment on above: Performed By: #### C MP, BNP, HSTROPN ####[facility] Ihqmfhcmba[address] [place] [address]Dr. Nahed Yañez Protein [Mass/Vol] 6.3 g/dL Critically low 6.4-8.2 [facility] Comment on above: Performed By: #### C MP, BNP, HSTROPN ####[facility] Dvhzgvmaok[address] [place], [place] [address]Dr. Nahed Yañez Sodium [Moles/Vol] 140 mmol/L Normal 136-145 [facility] Comment on above: Performed By: #### C MP, BNP, HSTROPN ####[facility] [address] [place], [place] [address]Dr. Nahed Yañez Urea nitrogen [Mass/Vol] 18.0 mg/dL Normal 7.0-18.0 [facility] Comment on above: Performed By: #### C MP, BNP, HSTROPN ####[facility] Exr[address] [place], [place] [address]Dr. Nahed Yañez Urea nitrogen/Creatinine [Mass ratio] 14.4 mg/mg Normal [facility] Comment on above: Performed By: #### C MP, BNP, HSTROPN ####[facility] [address]sw[address]vmgr8554 [place], [place] [address]Yc. Nahed Yañez PROTHROMBIN TIMEon 2 INR Coag (PPP) [Relative time] 1.06 {INR} Normal 0.91-1.16 [facility] Comment on above: Order Comment: No: [...] 1995;108:[id number]. Performed By: #### 5 6101 #### [facility] [address] [place] [address], [facility] PT Coag (PPP) [Time] 13.8 s Normal 12.3-14.8 [facility] Comment on above: Order Comment: No: D o not add to previous draw Result Comment: ALL RESULTS MUST BE INTERPRETED WITH RESPECT TO BLOOD DRAWING ARTIFACT OR DILUTION ERROR OF ANTICOAGULANT AT THE TIME OF SAMPLING. Performed By: #### 5 6101 #### [facility] [address] [place] [id number], [facility] TROPONIN, HIGH SENSITIVITYon 11-01-2021 HSTROP 1684.4 pg/mL Critically high 4.0-51.3 [facility] Comment on above: Result Comment: CUT- OFF POINTS HAVE BEEN ESTABLISHED BASED ON THE FOURTH UNIVERSAL DEFINITIONS OF MYOCARDIALINFARCTION. THE UPPER REFERENCE LIMIT (URL) OF TROPONIN, DEFINED THE 99TH PERCENTILE OFcTnI DISTRIBUTION IN A REFERENCE POPULATION, HAS BEEN CONFIRMED THE DECISION THRESHOLDFOR MT DIAGNOSIS. Performed By: #### C MP, BNP, HSTROPN ####[facility] [address] [place], [place] [address]Mc. Nahed Yañez TROPONIN-Ion 11-01-2021 Troponin I.cardiac [Mass/Vol] 0.22 ng/mL Critically high 0.00-0.04 [facility] Comment on above: Order Comment: No: D o not add to previous draw Result Comment: M-TR OPONIN INITIAL CRITICAL HIGH; RESPUN AND RETESTED M-CRITICAL RESULT(S) REVIEWED, CALLED TO AND READ BACK BY Kathy Suárez RN at 2205. REFERENCE RANGES: 0.00 - 0.04 ng/ml NORMAL 0.05 - 0.50 ng/ml INDETERMINATE > 0.50 ng/ml CONSISTENT WITH AN M.I. Performed By: #### 0 0121, 57325, 84919 #### [facility] [address] [place] [address], [facility] UFH HEPARIN ASSAYon 11-02-19 UNFRACTIONATED HEPARIN 0.55 IU/mL Normal 0.30-0.70 [facility] Comment on above: Result Comment: Clare roxaban and Apixaban will interfere with the anti Xa assay used to monitor UFH and LMWH. Performed By: #### 3 5200, 55886 #### [facility] [address] [facility] [place] [address], [facility] BLOOD GASES BTYon 10-31-2021 02 MODE ROOM AIR Normal The [facility] Comment on above: Performed By: #### A BG ####[facility] [address] [place] [id number]. Nahed Yañez ALLENS TEST Positive Normal [facility] Comment on above: Performed By: #### A BG ####[facility] Al[address] [place] [address]Dr. Nahed Yañez Base excess Calc (Bld) [Moles/Vol] 3.5 mmol/L Critically high -2.0-2.0 [facility] Comment on above: Performed By: #### A BG ####[facility] K[address] [place] [address]Dr. Nahed Yañez BIPAP PRESSURE Normal [facility] Comment on above: Performed By: #### A BG ####[facility] K[address] [place], [place] [address]Dr. Nahed Yañez CO2 [Moles/Vol] 56.3 mmol/L Critically high 23.0-28.0 [facility] Comment on above: Performed By: #### A BG ####[facility] Fmtugytzvh[address] [place], [place] [address]Dr. Nahed Yañez CPAP Normal [facility] Comment on above: Performed By: #### A BG ####[facility] Mtjoxqmelo[address] [place], [place] [address]Dr. Nahed Yañez FIO2 Normal [facility] Comment on above: Performed By: #### A BG ####[facility] E[address]qwufhb[address] [place], [place] [address]Dr. Nahed Yañez HCO3 (Bld) [Moles/Vol] 26.8 mmol/L Critically high 22.0-26 .0 [facility] Comment on above: Performed By: #### A BG ####[facility] Khrburysia[address] [place], [place] [address]Dr. Nahed Yañez LPM Normal [facility] Comment on above: Performed By: #### A BG ####[facility] Oyjswvmnej[address] [place], [place] [address]Dr. Nahed Yañez MINUTE VOLUME Normal [facility] Comment on above: Performed By: #### A BG ####[facility] Scc[address]huscz[address] [place], [place] [address]Dr. Nahed Yañez Oxygen (Bld) [Partial pressure] 51.8 mm[Hg] Critically low 80.0-100.0 [facility] Comment on above: Performed By: #### A BG ####[facility] Tpbubxnmxe[address] [place] [address]Dr. Nahed Yañez Oxygen saturation in Blood 86.3 % Critically low 95.0-100.0 [facility] Comment on above: Performed By: #### A BG ####[facility] Ybmlmuepjg[address] [place] [address]Dr. Nahed Yañez PCO2 43.8 mmHg Normal 35.0-45.0 [facility] Comment on above: Performed By: #### A BG ####[facility] Mvthjolmlm4[address] [place] [address]Dr. Nahed Yañez PEEP [facility] Comment on above: Performed By: #### A BG ####[facility] Hissgzcksc[address] [place], [place] [address]Dr. Nahed Yañez pH (Bld) 7.415 [pH] Normal 7.350-7.450 [facility] Comment on above: Performed By: #### A BG ####[facility] Yeeoysdcti[address] [place], [place] [address]Dr. Nahed Yañez PIP [facility] Comment on above: Performed By: #### A BG ####[facility] Utaehwwqeu[address] [place], [place] [address]Dr. Nahed Yañez PS [facility] Comment on above: Performed By: #### A BG ####[facility] Gr[address]efa[address] [place], [place] [address]Dr. Nahed Yañez PUNCTURE SITE RR Normal [facility] Comment on above: Performed By: #### A BG ####[facility] Rcdnpiiwdl0[address] [place], [place] [address]Dr. Nahed Yañez RATE [facility] Comment on above: Performed By: #### A BG ####[facility] Pwybrsivgx[address] [place], [place] [address]Dr. Nahed Yañez VENT MODE [facility] Comment on above: Performed By: #### A BG ####[facility] Heq[address] [place], [place] [id number]. Nahed Yañez VT Normal [facility] Comment on above: Performed By: #### A BG ####[facility] Hhozwrtsjb[address] [place] [address]Dr. Nahed Yañez BNPon 10-31-2021 Natriuretic peptide B (Bld) [Mass/Vol] 48752.0 pg/mL Critically high <=900.0 [facility] Comment on above: Performed By: #### T 4, TSH, BNP, CMADM ####[facility] Uotxkebrdp65[address] [place] [address]Dr. Nahed Yañez CARDIAC FRANCISCO 3-6on 2 CK [Catalytic activity/Vol] 91 U/L Normal 26-192 The [facility] Comment on above: Performed By: #### C MREP ####[facility] Lbs[address]tzbotq[address] [place], [place] [address]Dr. Nahed Yañez CK.MB [Mass/Vol] 7.32 ng/mL Critically high <=3.60 [facility] Comment on above: Result Comment: test repeated critical value verified Performed By: #### C MREP ####[facility] Dweokztrvv[address] [place], [place] [address]Dr. Nahed Yañez HSTROP 2823.1 pg/mL Critically high 4.0-51.3 [facility] Comment on above: Result Comment: CUT- OFF POINTS HAVE BEEN ESTABLISHED BASED ON THE FOURTH UNIVERSAL DEFINITIONS OF MYOCARDIALINFARCTION. THE UPPER REFERENCE LIMIT (URL) OF TROPONIN, DEFINED THE 99TH PERCENTILE OFcTnI DISTRIBUTION IN A REFERENCE POPULATION, HAS BEEN CONFIRMED THE DECISION THRESHOLDFOR MT DIAGNOSIS.test repeated critical value verified Performed By: #### C MREP ####[facility] Xmut[address]ww[address] [place] [address]Dr. Nahed Yañez CARDIAC FRANCISCO ADMITon 022 CK [Catalytic activity/Vol] 85 U/L Normal 26-192 The [facility] Comment on above: Performed By: #### T 4, TSH, BNP, CMADM ####[facility] Bbbgtfhwdd036[address] [place] [address]Dr. Nahed Yañez CK.MB [Mass/Vol] 6.44 ng/mL Critically high <=3.60 [facility] Comment on above: Performed By: #### T 4, TSH, BNP, CMADM ####[facility] Ucqffqycil4[address] [place] [address]Dr. Nahed Yañez HSTROP 3194.8 pg/mL Critically high 4.0-51.[address] [facility] Comment on above: Result Comment: CUT- OFF POINTS HAVE BEEN ESTABLISHED BASED ON THE FOURTH UNIVERSAL DEFINITIONS OF MYOCARDIALINFARCTION. THE UPPER REFERENCE LIMIT (URL) OF TROPONIN, DEFINED THE 99TH PERCENTILE OFcTnI DISTRIBUTION IN A REFERENCE POPULATION, HAS BEEN CONFIRMED THE DECISION THRESHOLDFOR MT DIAGNOSIS. Performed By: #### T 4, TSH, BNP, CMADM ####[facility] Snmrdtauvg0575 [place] [address]Dr. Nahed Yañez ANDRE 57 ng/mL Normal 9-82 [facility] Comment on above: Performed By: #### T 4, TSH, BNP, CMADM ####[facility] H[address]ffgcutia[address] [place], [place] [address]Dr. Nahed Yañez CBC AUTO DIFFon 10-31-2021 BASO # 0.0 103/ul Normal 0.0-0.1 [facility] Comment on above: Performed By: #### C BC ####[facility] W[address]avlcfre[address] [place], [place] [address]Dr. Nahed Yañez Basophils/100 WBC (Bld) 0.2 % Normal 0.2-2.0 The [facility] Comment on above: Performed By: #### C BC ####[facility] Inywhanwzv264[address] [place] [address]Dr. Nahed Yañez EO # 0.0 103/ul Normal 0.0-0.7 [facility] Comment on above: Performed By: #### C BC ####[facility] Hcbvgayhhr[address] [place], [place] [address]Dr. Nahed Yañez Eosinophils/100 WBC (Bld) 0.1 % Critically low 0.9-7.0 The [facility] Comment on above: Performed By: #### C BC ####[facility] Bwaqpoubcc[address] [place], [place] [address]Dr. Nahed Yañez Erythrocyte distribution width (RBC) [Ratio] 14.8 % Normal 11.0-15.0 [facility] Comment on above: Performed By: #### C BC ####[facility] Lezqooridw[address] [place], [place] [address]Dr. Nahed Yañez Hematocrit (Bld) [Volume fraction] 44.4 % Normal 36.0-48.0 [facility] Comment on above: Performed By: #### C BC ####[facility] Grcdirqcel[address] [place], [place] [address]Dr. Nahed Yañez Hemoglobin (Bld) [Mass/Vol] 14.1 g/dL Normal 12.0-16.0 [facility] Comment on above: Performed By: #### C BC ####[facility] Wvcilxdimb[address] [place], [place] [address]Dr. Nahed Yañez IG # 0.04 10e3/ul Critically high 0.00-0.03 [facility] Comment on above: Performed By: #### C BC ####[facility] Qtphojjesy[address] [place], [place] [address]Dr. Rosemarieashley Yañez IG % 0.3 % Normal 0.0-0.5 [facility] Comment on above: Performed By: #### C BC ####[facility] Nicfgyezwi[address] [place], [place] [address]Dr. Nahed Yañez LYMPH # 1.4 103/ul Normal 1.2-3.8 The [facility] Comment on above: Performed By: #### C BC ####[facility] Hdfgqucedu[address] [place], [place] [address]Dr. Nahed Yañez Lymphocytes/100 WBC (Bld) 10.4 % Critically low 20.5-60.0 The [facility] Comment on above: Performed By: #### C BC ####[facility] Aoryzzcyqg[address] [place], [place] [address]Dr. Rosemarieashley Yañez MANUAL DIFF REQ NO Normal The [facility] Comment on above: Performed By: #### C BC ####[facility] Owwjulwtmi[address] [place], [place] [address]Dr. Nahed Yañez MCH (RBC) [Entitic mass] 28.1 pg Normal 26.7-34.0 [facility] Comment on above: Performed By: #### C BC ####[facility] Oxkzaqczlx13[address] [place] [address]Dr. Nahed Yañez MCHC (RBC) [Mass/Vol] 31.8 g/dL Normal 29.9-35.2 [facility] Comment on above: Performed By: #### C BC ####[facility] Msgsscagwk8254 [place] [address]Dr. Nahed Otilio MCV (RBC) [Entitic vol] 88.4 fL Normal 81.0-99.0 [facility] Comment on above: Performed By: #### C BC ####[facility] Wmmjpfhzli6867 [place] [address]Dr. Nahed Otilio MONO # 0.8 103/ul Normal 0.3-0.8 The [facility] Comment on above: Performed By: #### C BC ####[facility] Ikxdxvaktj6562 [place] [address]Dr. Rosemarieashley Yañez Monocytes/100 WBC (Bld) 6.0 % Normal 1.7-12.0 The [facility] Comment on above: Performed By: #### C BC ####[facility] R[address]qsxdd[address] [place], [place] [address]Dr. Nahed Yañez NEUT # 10.9 103/ul Critically high 1.4-6.5 [facility] Comment on above: Performed By: #### C BC ####[facility] Dzjqfvsdgg6028 [place] [address]Dr. Nahed Yañez Neutrophils/100 WBC (Bld) 83.0 % Critically high 43.0-75.0 The [facility] Comment on above: Performed By: #### C BC ####[facility] [address]ce[address]rm[address] [place], [place] [address]Dr. Nahed Yañez Platelet mean volume (Bld) [Entitic vol] 10.8 fL Normal 9.5-13.5 The [facility] Comment on above: Performed By: #### C BC ####[facility] Orqczinnqg3527 [place], [place] [address]Di. Nahed Yañez PLT 402 103/ul Normal 150-450 The [facility] Comment on above: Performed By: #### C BC ####[facility] Nxgnyflrze1429 [place], [place] [address]Iq. Nahed Yañez RBC 5.02 106/ul Normal 4.20-5.40 [facility] Comment on above: Performed By: #### C BC ####[facility] Mhltbsmtau3802 [place], [place] [address]Xu. Nahed Yañez WBC 13.1 103/ul Critically high 4.0-11.0 [facility] Comment on above: Performed By: #### C BC ####[facility] Iolsiwxwxi3905 [place], [place] [address]Ws. Nahed Yañez CTA CHEST WO W CONon 022 CTA CHEST WO W CON Normal [facility] CULTURE BLOODon 10-31-2021 Microscopic examination of blood, culture Culture Observations: NO GROWTH AT 5 DAYS. Normal The [facility] Comment on above: Performed By: #### B LDCX2 ####[facility] Fiwqpfhxlp4492 [place], [place] [address]Mw. Nahed Yañez Microscopic examination of blood, culture Culture Observations: NO GROWTH AT 5 DAYS. Normal [facility] Comment on above: Performed By: #### B LDCX1 ####[facility] Rbxmcnaxiz2348 [place], [place] [address]Ev. Nahed Yañez Covid-19 PCR (CVDTB)on 10-13 SARS-CoV-2 (COVID-19) RNA MIRNA+probe Ql (Unsp spec) Not detected Normal NOT DETECTED The [facility] Comment on above: Result Comment: When [...] for this test is supported by the [place] of Health and Human Service's declaration that [...] longer be used). Performed By: #### [facility] ####[facility] Dxqbzhmfsb[address] [place] [address]Dr. Nahed Yañez ECHO LIMITED STUDYon 022 ECHO LIMITED STUDY Normal [facility] ER URINE PROFILEon 2 Bilirubin Ql (U) SMALL Abnormal NEGATIVE [facility] Comment on above: Performed By: #### NUNU DOVERO ####[facility] Ejvqmzttck[address] [place], [place] [address]Dr. Nahed Yañez Clarity (U) CLEAR Normal CLEAR [facility] Comment on above: Performed By: #### NUNU DOVERO ####[facility] Xiontcdgdt[address] [place], [place] [address]Dr. Nahed Yañez Color (U) YELLOW Normal YELLOW [facility] Comment on above: Performed By: #### NUNU DOVERO ####[facility] Cdmskturuy23[address] [place], [place] [address]Dr. Nahed Yañez ERUAHD A micrscopic examination will be performed if indicated. Normal The [facility] Comment on above: Performed By: #### NUNU DOVERO ####[facility] Bxihlmluvu8[address] [place], [place] [address]Dr. Nahed Yañez Glucose Ql (U) Negative Normal NEGATIVE [facility] Comment on above: Performed By: #### NUNU DOVERO ####[facility] Hrcwhpwwbm50[address] [place], [place] [address]Dr. Nahed Yañez Hemoglobin Ql (U) TRACE-INTACT Abnormal NEGATIVE [facility] Comment on above: Performed By: #### NUNU DOVERO ####[facility] Tdibcatbip76[address] [place] [address]Dr. Nahed Yañez Ketones Ql (U) 15 mg/dl Abnormal NEGATIVE [facility] Comment on above: Performed By: #### YARELIS DOVE ####[facility] Wtwfkwiyxg[address] [place], [place] [address]Dr. Nahed Yañez LEUKOCYTES TRACE Abnormal NEGATIVE The [facility] Comment on above: Performed By: #### YARELIS DOVE ####[facility] Xznpofrbje4[address] [place], [place] [address]Dr. Nahed Yañez Nitrite Ql (U) Negative Normal NEGATIVE [facility] Comment on above: Performed By: #### YARELIS DOVE ####[facility] Obdsejliuz85[address] [place], [place] [address]Dr. Nahed Yañez pH (U) 6.5 [pH] Normal 5-9 [facility] Comment on above: Performed By: #### YARELIS DOVE ####[facility] Msdtfqvqme7525[address] [place], [place] [address]Dr. Nahed Yañez Protein (U) [Mass/Vol] 30 mg/dL Abnormal NEGAT JOSEPHINE/ TRACE The [facility] Comment on above: Performed By: #### YARELIS DOVE ####[facility] Nqwwqlaoak[address] [place], [place] [address]Dr. Nahed Yañez SPEC GRAVITY 1.025 Normal 1.005-<=1.02 5 [facility] Comment on above: Performed By: #### YARELIS DOVE ####[facility] Gbmmryzydv8[address] [place], [place] [address]Dr. Nahed Yañez UR MICRO IND INDICATED Normal [facility] Comment on above: Performed By: #### YARELIS DOVE ####[facility] Mzgishyynh8860[address] [place], [place] [address]Dr. Nahed Yañez Urobilinogen Qn (U) 0.2 {Alem'U}/dL Normal 0.2 - 1. 0 The [facility] Comment on above: Performed By: #### YARELIS DOVE ####[facility] Wzvyrqptvm0827[address] [place], [place] [address]Dr. Nahed Yañez INFLUENZA A AND B AGon 10-31 INFLUANEGH SEE BELOW Normal The [facility] Comment on above: Result Comment: Nega tive for Flu A protein angiten. Infection due to Flu A cannot be ruled out. Flu A angiten in the sample may be below the detection limit of the test. Performed By: #### I NFLUAB ####[facility] Hscoscelon8[address] [place], [place] [address]Dr. Nahed Yañez INFLUBNEGH SEE BELOW Normal [facility] Comment on above: Result Comment: Nega tive for Flu B protein antigen. Infection due to Flu B cannot be ruled out. Flu B antigen in the sample may be below the detection limit of the test. Performed By: #### I NFLUAB ####[facility] Rnlzitbtsn27[address] [place], [place] [address]Dr. Nahed Yañez INFLUENZA A AG Negative Normal NEGATIVE SEE COMMENT [facility] Comment on above: Performed By: #### I NFLUAB ####[facility] Udarahwzpd6646[address] [place], [place] [address]Dr. Nahed Yañez INFLUENZA B AG Negative Normal NEGATIVE SEE COMMENT [facility] Comment on above: Performed By: #### I NFLUAB ####[facility] Nbtoyuzvyo2827[address] [place], [place] [address]Dr. Nahed Yañez INTERNAL CONTROLS Within Normal Limits Normal Wi thin Normal Limits The [facility] Comment on above: Performed By: #### I NFLUAB ####[facility] Tzahmcnkwo764[address] [place], [place] [address]Dr. Nahed Yañez LACTATE/LACTIC ACIDon 2021 Lactate [Moles/Vol] 1.3 mmol/L Normal 0.4-1.9 [facility] Comment on above: Performed By: #### L ACT ####[facility] Insvqvvxkx0058[address] [place], [place] [address]Dr. Nahed Yañez PROF 14(COMP METB)on 022 Albumin [Mass/Vol] 4.3 g/dL Normal 3.4-5.0 [facility] Comment on above: Performed By: #### C MP ####[facility] Tuvmbromdx[address] [place] [address]Dr. Nahed Otilio Albumin/Globulin [Mass ratio] 1.2 {ratio} Normal [facility] Comment on above: Performed By: #### C MP ####[facility] Nahyiamrvu34[address] [place] [id number]. Rosemarieashley Yañez ALP [Catalytic activity/Vol] 77 U/L Normal 46-116 [facility] Comment on above: Performed By: #### C MP ####[facility] Ujoxisorhw7360 [place] [address]Dr. Rosemarieashley Yañez ALT [Catalytic activity/Vol] 25 U/L Normal 14-59 [facility] Comment on above: Performed By: #### C MP ####[facility] Eezzgsukpj95[address] [place], [place] [address]Dr. Nahed Yañez Anion gap [Moles/Vol] 15.6 mmol/L Normal [facility] Comment on above: Performed By: #### C MP ####[facility] Esefgdpyuk[address] [place], [place] [address]Dr. Rosemarieashley Yañez AST [Catalytic activity/Vol] 26 U/L Normal 15-37 [facility] Comment on above: Performed By: #### C MP ####[facility] Cgdhjvbnkw23[address] [place], [place] [address]Dr. Nahed Yañez Bilirubin [Mass/Vol] 0.6 mg/dL Normal 0.2-1.0 [facility] Comment on above: Performed By: #### C MP ####[facility] Acgpzecqip49[address] [place], [place] [address]Dr. Nahed Yañez Calcium [Mass/Vol] 10.0 mg/dL Normal 8.5-10.1 [facility] Comment on above: Performed By: #### C MP ####[facility] Mvljzdlapc[address] [place], [place] [address]Dr. Nahed Yañez Chloride [Moles/Vol] 101 mmol/L Normal 98-107 [facility] Comment on above: Performed By: #### C MP ####[facility] Hmlsektxwm8[address] [place] [phone]. Nahed Yañez CO2 [Moles/Vol] 29.0 mmol/L Normal 21.0-32.0 [facility] Comment on above: Performed By: #### C MP ####[facility] Knfzgjwtgx4[address] [place] [phone]. Nahed Yañez Creatinine [Mass/Vol] 0.89 mg/dL Normal 0.55-1.02 [facility] Comment on above: Performed By: #### C MP ####[facility] Crohvmxsoz6[address] [place] [phone]. Nahed Yañez EGFR-AF [place] ISLANDER >60 Normal >=60 [facility] Comment on above: Performed By: #### C MP ####[facility] Bulpiymerz[address] [place] [address]Dr. Nahed Otilio EGFR-NON AF [place]LANDER >60 Normal >=60 [facility] Comment on above: Performed By: #### C MP ####[facility] Vduwbamehx9212 [place] [address]Dr. Nahed Otilio Globulin (S) [Mass/Vol] 3.7 g/dL Normal [facility] Comment on above: Performed By: #### C MP ####[facility] Tvwgpomaqb3[address] [place] [address]Dr. Nahed Otilio Glucose [Mass/Vol] 182 mg/dL Critically high 74-106 [facility] Comment on above: Performed By: #### C MP ####[facility] Imyzjezbvx9787 [place] [address]Dr. Nahed Otilio Potassium [Moles/Vol] 3.6 mmol/L Normal 3.5-5.1 [facility] Comment on above: Performed By: #### C MP ####[facility] Lojnsjkjwd8[address] [place], [place] [address]Dr. Nahed Otilio Protein [Mass/Vol] 8.0 g/dL Normal 6.4-8.2 [facility] Comment on above: Performed By: #### C MP ####[facility] Uetk[address]hr[address] [place], [place] [id number]. Nahed Yañez Sodium [Moles/Vol] 142 mmol/L Normal 136-145 [facility] Comment on above: Performed By: #### C MP ####[facility] Opnjdfwfpy48[address] [place] [address]Dr. Nahed Yañez Urea nitrogen [Mass/Vol] 8.0 mg/dL Normal 7.0-18.0 [facility] Comment on above: Performed By: #### C MP ####[facility] Bcxlwzskvs35[address] [place] [address]Dr. Nahed Yañez Urea nitrogen/Creatinine [Mass ratio] 9.0 mg/mg Normal [facility] Comment on above: Performed By: #### C MP ####[facility] Tmyyciknvu75[address] [place] [address]Dr. Nahed Yañez T4on 10-31-2021 T4 [Mass/Vol] 8.10 ug/dL Normal 4.80-13.90 [facility] Comment on above: Performed By: #### T 4, TSH, BNP, CMADM ####[facility] Znrpvkpkof18[address] [place] [address]Dr. Nahed Yañez TSHon 10-31-2021 TSH 1.088 uIU/mL Normal 0.358-3.740 [facility] Comment on above: Performed By: #### T 4, TSH, BNP, CMADM ####[facility] Uowpwsiqdh[address] [place] [address]Dr. Nahed Yañez URINE MICROSCOPIC ONLYon BACTERIA TRACE Abnormal NONE SEEN The [facility] Comment on above: Performed By: #### YARELIS DOVE ####[facility] Mhixobuaon48[address] [place] [address]Dr. Nahed Otilio Bacteria identified Cx Nom (U) NOT INDICATED Normal The [facility] Comment on above: Performed By: #### NUNU DOVERO ####[facility] Splstunuii99[address] [place] [address]Dr. Rosemarieashley Yañez CAST NONE SEEN Normal NONE SEEN The [facility] Comment on above: Performed By: #### YARELIS DOVE ####[facility] Nmrvdfwhti9513 [place] [phone]. Nahed Yañez Crystals LM Nom (Urine sed) NONE SEEN Normal NONE SEEN The [facility] Comment on above: Performed By: #### NUNU DOVERO ####[facility] Xhswroaftz8435 [place] [phone]. Nahed Yañez Epithelial cells LM Ql (Urine sed) MODERATE Abnormal NONE SEEN /RARE The [facility] Comment on above: Performed By: #### NUNU DOVERO ####[facility] Oxppxqisgm8745 [place] [phone]. Nahed Yañez MUCOUS SMALL Abnormal NONE SEEN The [facility] Comment on above: Performed By: #### YARELIS DOVE ####[facility] Sqihfznsab0867 [place] [address]Dr. Nahed Yañez RBC 2-5 Abnormal 0-2 The [facility] Comment on above: Performed By: #### YARELIS DOVE ####[facility] Nbvieyukuh5592 [place] [phone]. Nahed Yañez WBC 2-5 Abnormal NONE SEEN The [facility] Comment on above: Performed By: #### NUNU DOVERO ####[facility] Pwotbvwucy5217 [place] [address]Dr. Nahed Yañez XR CHEST 2 Von 10-31-2021 XR CHEST 2 V Normal [facility] CULTURE URINEon 10-30-2021 CULTURE URINE Culture Observations : MODERATE GROWTH OF MIXED GENITAL MIGUEL. NO POTENTIAL PATHOGENS SEEN. Normal The [facility] Comment on above: Performed By: #### U RCX ####[facility] Ullxnsflhp2613 [place] [address]Dr. Nahed Yañez US JESSEE DOP LEG BILon 022 US JESSEE DOP LEG MOHAN Normal [facility] CARDIAC FRANCISCO ADMITon 022 CK [Catalytic activity/Vol] 16 U/L Critically low 26-192 [facility] Comment on above: Performed By: #### C MP, CMADM ####[facility] Cdyqohpcbc3274 [place] [address]Dr. Nahed Otilio CK.MB [Mass/Vol] 0.56 ng/mL Normal <=3.60 [facility] Comment on above: Performed By: #### C ERICK MULLER ####[facility] Ypuvrcwxhj6856 [place] [address]Dr. Nahed Yañez HSTROP 44.3 pg/mL Normal 4.0-51.3 [facility] Comment on above: Result Comment: CUT- OFF POINTS HAVE BEEN ESTABLISHED BASED ON THE FOURTH UNIVERSAL DEFINITIONS OF MYOCARDIALINFARCTION. THE UPPER REFERENCE LIMIT (URL) OF TROPONIN, DEFINED THE 99TH PERCENTILE OFcTnI DISTRIBUTION IN A REFERENCE POPULATION, HAS BEEN CONFIRMED THE DECISION THRESHOLDFOR MT DIAGNOSIS. Performed By: #### C ERICK MULLER ####[facility] Iovqvfdwew[address] [place], [place] [address]Dr. Nahed Otilio ANDRE 42 ng/mL Normal 9-82 [facility] Comment on above: Performed By: #### C ERICK MULLER ####[facility] Wvhgzqextq11[address] [place], [place] [address]Dr. Nahed Yañez CBC AUTO DIFFon 09-07-2021 BASO # 0.0 103/ul Normal 0.0-0.1 [facility] Comment on above: Performed By: #### C BC ####[facility] Enouhnmbuq6947[address] [place], [place] [address]Dr. Nahed Otilio Basophils/100 WBC (Bld) 0.4 % Normal 0.2-2.0 [facility] Comment on above: Performed By: #### C BC ####[facility] Xuspzygdyy19[address] [place], [place] [address]Dr. Nahed Yañez EO # 0.2 103/ul Normal 0.0-0.7 [facility] Comment on above: Performed By: #### C BC ####[facility] Iseckhdsqq24[address] [place], [place] [address]Dr. Nahed Otilio Eosinophils/100 WBC (Bld) 2.4 % Normal 0.9-7.0 [facility] Comment on above: Performed By: #### C BC ####[facility] Bfd[address]hnln[address] [place], [place] [id number]. Nahed Yañez Erythrocyte distribution width (RBC) [Ratio] 15.1 % Critically high 11.0-15.0 [facility] Comment on above: Performed By: #### C BC ####[facility] Cspcyyvbeo01[address] [place], [place] [address]Dr. Nahed Yañez Hematocrit (Bld) [Volume fraction] 42.6 % Normal 36.0-48.0 [facility] Comment on above: Performed By: #### C BC ####[facility] Zvpjawjqtc[address] [place], [place] [address]Dr. Nahed Yañez Hemoglobin (Bld) [Mass/Vol] 13.4 g/dL Normal 12.0-16.0 [facility] Comment on above: Performed By: #### C BC ####[facility] Ourcscdaqv57[address] [place], [place] [address]Dr. Nahed Yañez IG # 0.33 10e3/ul Critically high 0.00-0.03 [facility] Comment on above: Performed By: #### C BC ####[facility] Ftjlijwttt[address] [place], [place] [address]Dr. Rosemarieahsley Yañez IG % 3.9 % Critically high 0.0-0.5 The [facility] Comment on above: Performed By: #### C BC ####[facility] Sscvujprah[address] [place], [place] [address]Dr. Nahed Yañez LYMPH # 2.6 103/ul Normal 1.2-3.8 [facility] Comment on above: Performed By: #### C BC ####[facility] Mgaqkunuuy15[address] [place], [place] [address]Dr. Rosemarieashley Yañez Lymphocytes/100 WBC (Bld) 30.3 % Normal 20.5-60.0 [facility] Comment on above: Performed By: #### C BC ####[facility] Qhzuzqnwtl[address] [place], [place] [address]Dr. Rosemarieashley Yañez MANUAL DIFF REQ NO Normal The [facility] Comment on above: Performed By: #### C BC ####[facility] Ksevhydeth[address] [place], [place] [address]Dr. Nahed Otilio MCH (RBC) [Entitic mass] 28.6 pg Normal 26.7-34.0 [facility] Comment on above: Performed By: #### C BC ####[facility] Krwlbhbpqo8246 [place] [address]Dr. Nahed Yañez MCHC (RBC) [Mass/Vol] 31.5 g/dL Normal 29.9-35.2 [facility] Comment on above: Performed By: #### C BC ####[facility] Vcoplkwfwn1847 [place] [address]Dr. Nahed Otilio MCV (RBC) [Entitic vol] 90.8 fL Normal 81.0-99.0 [facility] Comment on above: Performed By: #### C BC ####[facility] Mntwnztyfh3106 [place] [address]Dr. Nahed Otilio MONO # 0.7 103/ul Normal 0.3-0.8 [facility] Comment on above: Performed By: #### C BC ####[facility] Bqkhjfdxev5248 [place] [address]Dr. Rosemarieashley Yañez Monocytes/100 WBC (Bld) 8.0 % Normal 1.7-12.0 [facility] Comment on above: Performed By: #### C BC ####[facility] Xlrfaruwhi[address] [place], [place] [address]Dr. Nahed Yañez NEUT # 4.7 103/ul Normal 1.4-6.5 [facility] Comment on above: Performed By: #### C BC ####[facility] Mrpyfciuty3907 [place] [address]Dr. Rosemarieashley Yañez Neutrophils/100 WBC (Bld) 55.0 % Normal 43.0-75.0 [facility] Comment on above: Performed By: #### C BC ####[facility] Neusoukwzp[address] [place] [address]Dr. Nahed Yañez Platelet mean volume (Bld) [Entitic vol] 8.9 fL Critically low 9.5-13.5 The [facility] Comment on above: Performed By: #### C BC ####[facility] Qtkyqihoey8[address] [place] [phone]. Nahed Yañez PLT 270 103/ul Normal 150-450 [facility] Comment on above: Performed By: #### C BC ####[facility] Opjtdmpwxe6950 [place] [address]Dr. Nahed Yañez RBC 4.69 106/ul Normal 4.20-5.40 [facility] Comment on above: Performed By: #### C BC ####[facility] Dyfxcmytmb7671 [place] [address]Dr. Nahed Yañez WBC 8.5 103/ul Normal 4.0-11.0 [facility] Comment on above: Performed By: #### C BC ####[facility] Wsaubkkfsx8102 [place] [address]Dr. Nahed Yañez PROF 14(COMP METB)on 022 Albumin [Mass/Vol] 2.7 g/dL Critically low 3.4-5.0 [facility] Comment on above: Performed By: #### C ERICK MULLER ####[facility] Tqtdflgmwc4040 [place] [address]Dr. Nahed Yañez Albumin/Globulin [Mass ratio] 0.8 {ratio} Normal [facility] Comment on above: Performed By: #### C ERICK MULLER ####[facility] Ogwyihxkns6773 [place] [address]Dr. Nahed Yañez ALP [Catalytic activity/Vol] 65 U/L Normal 46-116 [facility] Comment on above: Performed By: #### C ERICK MULLER ####[facility] Dswlwgittz1625 [place] [address]Dr. Nahed Yañez ALT [Catalytic activity/Vol] 27 U/L Normal 14-59 [facility] Comment on above: Performed By: #### C ERICK MULLER ####[facility] Ruyvevbnhp3444 [place] [address]Dr. Nahed Yañez Anion gap [Moles/Vol] 10.3 mmol/L Normal [facility] Comment on above: Performed By: #### C MP, CMADM ####[facility] Kbffedpzli4507 [place] [phone]. Nahed Yañez AST [Catalytic activity/Vol] 11 U/L Critically low 15-37 [facility] Comment on above: Performed By: #### C RENZO, CMADM ####[facility] Oipqknamfu7564 [place] [phone]. Nahed Yañez Bilirubin [Mass/Vol] 0.3 mg/dL Normal 0.2-1.0 [facility] Comment on above: Performed By: #### C RENZO, CMADM ####[facility] Bmqhdoamye8202 [place] [phone]. Nahed Yañez Calcium [Mass/Vol] 8.1 mg/dL Critically low 8.5-10.1 [facility] Comment on above: Performed By: #### C RENZO, CMADM ####[facility] Ybzoxrszgi5792 [place] [address]Dr. Nahed Yañez Chloride [Moles/Vol] 98 mmol/L Normal 98-107 [facility] Comment on above: Performed By: #### C RENZO, CMADM ####[facility] Gceqcisihg0761 [place] [address]Dr. Nahed Yañez CO2 [Moles/Vol] 32.5 mmol/L Critically high 21.0-32.0 [facility] Comment on above: Performed By: #### C RENZO, CMADM ####[facility] Edtvtwpxhw3176 [place] [address]Dr. Nahed Yañez Creatinine [Mass/Vol] 0.94 mg/dL Normal 0.55-1.02 [facility] Comment on above: Performed By: #### C RENZO, CMADM ####[facility] Cyxelymwww23[address] [place] [address]Dr. Nahed Yañez EGFR-AF [place] ISLANDER >60 Normal >=60 [facility] Comment on above: Performed By: #### C RENZO, CMADM ####[facility] Hltlvklmqy4593 [place] [address]Dr. Nahed Yañez EGFR-NON AF [place] ISLANDER >60 Normal >=60 [facility] Comment on above: Performed By: #### C MP, CMADM ####[facility] Mwgfhbzicp7501 [place] [phone]. Nahed Yañez Globulin (S) [Mass/Vol] 3.2 g/dL Normal [facility] Comment on above: Performed By: #### C MP, CMADM ####[facility] Qfpwovcabo5142 [place] [address]Dr. Nahed Yañez Glucose [Mass/Vol] 123 mg/dL Critically high 74-106 [facility] Comment on above: Performed By: #### C RENZO, CMADM ####[facility] Nqqvbjhvqb7863 [place] [address]Dr. Nahed Yañez Potassium [Moles/Vol] 3.8 mmol/L Normal 3.5-5.1 [facility] Comment on above: Performed By: #### C RENZO, CMADM ####[facility] Apwaod[address] [place], [place] [address]Dr. Nahed Yañez Protein [Mass/Vol] 5.9 g/dL Critically low 6.1-8.2 [facility] Comment on above: Performed By: #### C RENZO, CMADM ####[facility] V[address] [place], [place] [address]Dr. Nahed Yañez Sodium [Moles/Vol] 137 mmol/L Normal 136-145 [facility] Comment on above: Performed By: #### C MP, CMADM ####[facility] [address] [place], [place] [address]Dr. Nahed Yañez Urea nitrogen [Mass/Vol] 20.0 mg/dL Critically high 7.0-18.0 [facility] Comment on above: Performed By: #### C MP, CMADM ####[facility] Regspjxhuq[address] [place], [place] [address]Dr. Nahed Yañez Urea nitrogen/Creatinine [Mass ratio] 21.3 mg/mg Normal [facility] Comment on above: Performed By: #### C MP, CMADM ####[facility] Uq[address] [place], [place] [address]Dr. Nahed Yañez BNPon 09-06-2021 Natriuretic peptide B (Bld) [Mass/Vol] 923.0 pg/mL Critically high <=900.0 The [facility] Comment on above: Performed By: #### B MP, BNP, HSTROPN ####[facility] Bjgccqyadk3[address] [place] [address]Dr. Nahed Yañez CBC AUTO DIFFon 09-06-2021 BASO # 0.1 103/ul Normal 0.0-0.1 [facility] Comment on above: Performed By: #### C BC ####[facility] S[address]ts[address] [place], [place] [address]Dr. Nahed Yañez Basophils/100 WBC (Bld) 0.6 % Normal 0.2-2.0 The [facility] Comment on above: Performed By: #### C BC ####[facility] Pstu[address] [place], [place] [address]Dr. Nahed Yañez EO # 0.3 103/ul Normal 0.0-0.7 [facility] Comment on above: Performed By: #### C BC ####[facility] Npbkbur[address] [place], [place] [address]Dr. Nahed Yañez Eosinophils/100 WBC (Bld) 3.0 % Normal 0.9-7.0 The [facility] Comment on above: Performed By: #### C BC ####[facility] Nf[address]wh[address] [place], [place] [address]Dr. Nahed Yañez Erythrocyte distribution width (RBC) [Ratio] 15.0 % Normal 11.0-15.0 The [facility] Comment on above: Performed By: #### C BC ####[facility] Nif[address]royix[address] [place], [place] [address]Dr. Nahed Yañez Hematocrit (Bld) [Volume fraction] 48.1 % Critically high 36.0-48.0 The [facility] Comment on above: Performed By: #### C BC ####[facility] Yrsx[address] [place], [place] [address]Dr. Nahed Yañez Hemoglobin (Bld) [Mass/Vol] 15.5 g/dL Normal 12.0-16.0 The [facility] Comment on above: Result Comment: delt a check called to Manisha WALKER Performed By: #### C BC ####[facility] [address] [place] [id number]. Nahed Yañez IG # 0.46 10e3/ul Critically high 0.00-0.03 [facility] Comment on above: Performed By: #### C BC ####[facility] Juuoyhqmqd17[address] [place] [id number]. Nahed Otilio IG % 4.2 % Critically high 0.0-0.5 The [facility] Comment on above: Performed By: #### C BC ####[facility] Ynsdjyxsii[address] [place] [address]Dr. Rosemarieashley Otilio LYMPH # 2.2 103/ul Normal 1.2-3.8 The [facility] Comment on above: Performed By: #### C BC ####[facility] Hzhtsjzyym1774 [place] [address]Dr. Nahed Yañez Lymphocytes/100 WBC (Bld) 20.6 % Normal 20.5-60.0 [facility] Comment on above: Performed By: #### C BC ####[facility] Jgoospfykl8[address] [place] [address]Dr. Rosemarieashley Yañez MANUAL DIFF REQ NO Normal The [facility] Comment on above: Performed By: #### C BC ####[facility] Hcifmujqun40[address] [place] [address]Dr. Nahed Otilio MCH (RBC) [Entitic mass] 28.2 pg Normal 26.7-34.0 [facility] Comment on above: Performed By: #### C BC ####[facility] Zhjhypqvof12[address] [place] [address]Dr. Nahed Otilio MCHC (RBC) [Mass/Vol] 32.2 g/dL Normal 29.9-35.2 The [facility] Comment on above: Performed By: #### C BC ####[facility] Gnkbwnwcfl2602 [place] [id number]. Nahed Yañez MCV (RBC) [Entitic vol] 87.5 fL Normal 81.0-99.0 [facility] Comment on above: Performed By: #### C BC ####[facility] Ysmfxbrmvh5094 [place] [id number]. Nahed Yañez MONO # 0.7 103/ul Normal 0.3-0.8 The [facility] Comment on above: Performed By: #### C BC ####[facility] Gsxtciepsz[address] [place] [phone]. Nahed Yañez Monocytes/100 WBC (Bld) 6.4 % Normal 1.7-12.0 [facility] Comment on above: Performed By: #### C BC ####[facility] Vqyqqcucvu8956 [place] [id number]. Nahed Yañez NEUT # 7.1 103/ul Critically high 1.4-6.5 The [facility] Comment on above: Performed By: #### C BC ####[facility] Invojulnyd75[address] [place] [address]Dr. Nahed Yañez Neutrophils/100 WBC (Bld) 65.2 % Normal 43.0-75.0 [facility] Comment on above: Performed By: #### C BC ####[facility] Vdsilprjfq8105 [place] [phone]. Nahed Yañez Platelet mean volume (Bld) [Entitic vol] 8.9 fL Critically low 9.5-13.5 [facility] Comment on above: Performed By: #### C BC ####[facility] Luujrfnoym8[address] [place] [phone]. Nahed Yañez PLT 390 103/ul Normal 150-450 [facility] Comment on above: Performed By: #### C BC ####[facility] Euykagdxep59[address] [place] [phone]. Nahed Yañez RBC 5.50 106/ul Critically high 4.20-5.40 [facility] Comment on above: Performed By: #### C BC ####[facility] Shsbgzyjvg35[address] [place] [phone]. Nahed Yañez WBC 10.8 103/ul Normal 4.0-11.0 The [facility] Comment on above: Performed By: #### C BC ####[facility] Cxibkhxbml4[address] [place] [address]Dr. Nahed Yañez CULTURE BLOODon 09-06-2021 Microscopic examination of blood, culture Culture Observations: NO GROWTH AT 5 DAYS. Isolate 1 BC_BA_NA Normal The [facility] Comment on above: Performed By: #### B LDCX2 ####[facility] Unzbkjsgmp0[address] [place] [address]Dr. Nahed Yañez Microscopic examination of blood, culture Culture Observations: NO GROWTH AT 5 DAYS. Normal The [facility] Comment on above: Performed By: #### B LDCX1 ####[facility] Cpoqlrbgrn01[address] [place] [address]Dr. Nahed Yañez Covid-19 PCR (CVDTBH)on 08-13 SARS-CoV-2 (COVID-19) RNA MIRNA+probe Ql (Unsp spec) Not detected Normal NOT DETECTED The [facility] Comment on above: Result Comment: When [...] for this test is supported by the Motion Study Technician of Health and Human Service's declaration that [...] be used). Performed By: #### C VDTBH ####[facility] Uazugdpbrn11[address] [place] [address]Dr. Nahed Yañez LACTATE/LACTIC ACIDon 2021 Lactate [Moles/Vol] 0.1 mmol/L Critically low 0.4-2.0 T [facility] Comment on above: Performed By: #### L ACT ####[facility] Gilmjjuzux8[address] [place] [address]Dr. Nahed Yañez Lactate [Moles/Vol] 1.5 mmol/L Normal 0.4-2.0 [facility] Comment on above: Performed By: #### L ACT ####[facility] Rwytfxgtem5814 [place] [address]Dr. Nahed Yañez POINT OF CARE GLUCOSEon 08-13 Glucose [Mass/Vol] 201 mg/dL Critically high 74-106 [facility] Comment on above: Performed By: #### P OCGLUC ####[facility] Q[address]at[address] [place], [place] [address]Dr. Nahed Yañez PROF CHEM 8 (BAS METB)on Anion gap [Moles/Vol] 14.8 mmol/L Normal [facility] Comment on above: Performed By: #### B MP, BNP, HSTROPN ####[facility] Nejpclwkwq9[address] [place] [address]Dr. Nahed Yañez Calcium [Mass/Vol] 8.8 mg/dL Normal 8.5-10.1 [facility] Comment on above: Performed By: #### B MP, BNP, HSTROPN ####[facility] Cblzkyjyyy[address] [place] [address]Dr. Nahed Yañez Chloride [Moles/Vol] 95 mmol/L Critically low 98-107 [facility] Comment on above: Performed By: #### B MP, BNP, HSTROPN ####[facility] Wwtokuoutb6668 [place] [address]Dr. Nahed Yañez CO2 [Moles/Vol] 28.7 mmol/L Normal 21.0-32.0 [facility] Comment on above: Performed By: #### B MP, BNP, HSTROPN ####[facility] Przlkiswum[address] [place] [address]Dr. Nahed Yañez Creatinine [Mass/Vol] 0.98 mg/dL Normal 0.55-1.02 [facility] Comment on above: Performed By: #### B MP, BNP, HSTROPN ####[facility] Egobqwjrct[address] [place] [address]Dr. Nahed Yañez EGFR-AF [place]LANDER >60 Normal >=60 [facility] Comment on above: Performed By: #### B MP, BNP, HSTROPN ####[facility] Tzolpplxbc0819 [place] [address]Dr. Nahed Yañez EGFR-NON AF [place]ER 58 mL/min/1.73m2 Critically low >=60 [facility] Comment on above: Performed By: #### B MP, BNP, HSTROPN ####[facility] T[address] [place], [place] [address]Dr. Nahed Yañez Glucose [Mass/Vol] 150 mg/dL Critically high 74-106 T [facility] Comment on above: Performed By: #### B MP, BNP, HSTROPN ####[facility] Itogtullcd[address] [place], [place] [address]Dr. Nahed Yañez Potassium [Moles/Vol] 4.5 mmol/L Normal 3.5-5.1 [facility] Comment on above: Performed By: #### B MP, BNP, HSTROPN ####[facility] [address] [place], [place] [address]Dr. Nahed Yañez Sodium [Moles/Vol] 134 mmol/L Critically low 136-145 [facility] Comment on above: Performed By: #### B MP, BNP, HSTROPN ####[facility] Qszyqtwc[address] [place], [place] [address]Dr. Nahed Yañez Urea nitrogen [Mass/Vol] 19.0 mg/dL Critically high 7.0-18.0 [facility] Comment on above: Performed By: #### B MP, BNP, HSTROPN ####[facility] Oxokovtent[address] [place], [place] [address]Dr. Nahed Yañez Urea nitrogen/Creatinine [Mass ratio] 19.4 mg/mg Normal [facility] Comment on above: Performed By: #### B MP, BNP, HSTROPN ####[facility] [address] [place], [place] [address]Hy. Nahed Yañez TROPONIN, HIGH SENSITIVITYon 09-06-2021 HSTROP 50.4 pg/mL Normal 4.0-51.3 The [facility] Comment on above: Result Comment: CUT- OFF POINTS HAVE BEEN ESTABLISHED BASED ON THE FOURTH UNIVERSAL DEFINITIONS OF MYOCARDIALINFARCTION. THE UPPER REFERENCE LIMIT (URL) OF TROPONIN, DEFINED THE 99TH PERCENTILE OFcTnI DISTRIBUTION IN A REFERENCE POPULATION, HAS BEEN CONFIRMED THE DECISION THRESHOLDFOR MT DIAGNOSIS. Performed By: #### B MP, BNP, HSTROPN ####[facility] Hzz[address]oes[address] [place], [place] [address]Qm. Nahed Yañez XR CHEST 1 Von 09-06-2021 XR CHEST 1 V Normal The [facility] CBC with Diffon 09-08-2018 Abs. Basophil 0.03 k/uL Normal 0.00-0.20 [facility] Comment on above: Performed By: #### L IP, CMPX, CDP #### [facility] [address] [place], [place] [address] Barge Hand: Nino Farias MD Abs.Imm.Granulocyte 0.05 k/uL Normal 0.00-0.30 [facility] Comment on above: Performed By: #### L IP, CMPX, CDP #### [facility] [address] [place] [address] Barge Hand: Nino Farias MD Abs.Neutrophil (Seg) 11.30 k/uL High 1.50-8.10 [facility] Comment on above: Performed By: #### L IP, CMPX, CDP #### [facility] [address] [place], [facility]83 Barge Hand: Nino Farias MD Basophils/100 WBC (Bld) 0 % Normal 0-2 [facility] Comment on above: Performed By: #### L IP, CMPX, CDP #### [facility] [address] [place] [id number] Barge Hand: Nino Farias MD Eosinophils #/vol (Bld) 0.17 10*3/uL Normal 0.00-0.44 [facility] Comment on above: Performed By: #### L IP, CMPX, CDP #### [facility] [address] [place], [place] [address] Barge Hand: Nino Farias MD Eosinophils/100 WBC (Bld) 1 % Normal 1-4 [facility] Comment on above: Performed By: #### L IP, CMPX, CDP #### [facility] [address] [place], [facility]83 Barge Hand: Nino Farias MD Erythrocyte distribution width Ratio (RBC) 12.5 % Normal 11.8-14.4 [facility] Comment on above: Performed By: #### L IP, CMPX, CDP #### [address] [place], [facility]83 Barge Hand: Nino Farias MD Hematocrit Volume Fraction (Bld) 36.8 % Normal 36.3-47.1 [facility] Comment on above: Performed By: #### L IP, CMPX, CDP #### [address] [place], [facility]83 Barge Hand: Nino Farias MD Hemoglobin mass conc (Bld) 11.6 g/dL Low 11.9-15.1 [facility] Comment on above: Performed By: #### L IP, CMPX, CDP #### [address] [place], [facility]83 Barge Hand: Nino Farias MD Immature granulocytes #/vol (Bld) 0 % Normal 0 [facility] Comment on above: Performed By: #### L IP, CMPX, CDP #### [address] [place] [address] Barge Hand: Nino Farias MD Lymphocytes #/vol (Bld) 2.56 10*3/uL Normal 1.10-3.70 [facility] Comment on above: Performed By: #### L IP, CMPX, CDP #### [facility] [address] [place], [place] [address] Barge Hand: Nino Farias MD Lymphocytes/100 WBC (Bld) 18 % Low 24-43 [facility] Comment on above: Performed By: #### L IP, CMPX, CDP #### [facility] [address] [place], [place] [address] Barge Hand: Nino Farias MD MCH Entitic mass (RBC) 30.6 pg Normal 25.2-33.5 [facility] Comment on above: Performed By: #### L IP, CMPX, CDP #### [facility] [address] [place], [facility]83 Barge Hand: Nino Farias MD MCHC mass conc (RBC) 31.5 g/dL Normal 28.4-34.8 [facility] Comment on above: Performed By: #### L IP, CMPX, CDP #### [facility] [address] [place], [facility]83 Barge Hand: Nino Farias MD MCV Entitic volume (RBC) 97.1 fL Normal 82.6-102.9 [facility] Comment on above: Performed By: #### L IP, CMPX, CDP #### [facility] [address] [place], [facility]83 Barge Hand: Nino Farias MD Monocytes #/vol (Bld) 0.55 10*3/uL Normal 0.10-1.20 [facility] Comment on above: Performed By: #### L IP, CMPX, CDP #### [facility] [address] [place], [place] [address] Barge Hand: Nino Farias MD Monocytes/100 WBC (Bld) 4 % Normal 3-12 [facility] Comment on above: Performed By: #### L IP, CMPX, CDP #### [facility] [address] [place], [place] [address] Barge Hand: Nino Farias MD Neutrophil (Seg) 77 % High 36-65 [facility] Comment on above: Performed By: #### L IP, CMPX, CDP #### [facility] [address] [place], [place] 7958483 Barge Hand: Nino Farias MD NRBC Automated 0.0 per [address] [facility] Comment on above: Performed By: #### L IP, CMPX, CDP #### [facility] [address] [place], [place] [id number] Barge Hand: Nino Farias MD Platelet mean volume Entitic volume (Bld) 9.2 fL Normal 8.1-13.5 [facility] Comment on above: Performed By: #### L IP, CMPX, CDP #### [facility] [address] [place] [address] Dr. [place], [place] 159[address]83 Barge Hand: Nino Farias MD Platelets #/vol (Bld) 305 10*3/uL Normal 138-453 [facility] Comment on above: Performed By: #### L IP, CMPX, CDP #### [address] [place], [place] 136[address]83 Barge Hand: Nino Farias MD RBC #/vol (Bld) 3.79 10*6/uL Low 3.95-5.11 [facility] Comment on above: Performed By: #### L IP, CMPX, CDP #### [facility] [address] [place], [place] [id number] Barge Hand: Nino Farias MD WBC #/vol (Bld) 14.7 10*3/uL High 3.5-11.3 [facility] Comment on above: Performed By: #### L IP, CMPX, CDP #### [facility] [address] [place] [id number] Barge Hand: Nino Farias MD Auto Diff Performed NOT REPORTED Normal [facility] Comment on above: Performed By: #### L IP, CMPX, CDP #### [facility] [address] [place], [place] [address] Barge Hand: Nino Farias MD Platelets #/vol (Bld) NOT REPORTED Normal [facility] Comment on above: Performed By: #### L IP, CMPX, CDP #### [facility] [address] [place] [address] Barge Hand: Nino Farias MD RBC morphology finding Nom (Bld) NOT REPORTED Normal [facility] Comment on above: Performed By: #### L IP, CMPX, CDP #### [facility] [address] [place], [place] [address]83 Barge Hand: Nino Farias MD WBC Morphology NOT REPORTED Normal [facility] Comment on above: Performed By: #### L IP, CMPX, CDP #### [facility] [address] [place], [facility]83 Barge Hand: Nino Farias MD Comp Metabolic Pr/rfx MGon 0 09-08-2018 ALT enzyme act/vol U/L Low 5-33 [facility] Comment on above: Performed By: #### L IP, CMPX, CDP #### [facility] [address] [place], [place] [address]83 Barge Hand: Nino Farias MD (cont.) Normal [facility] Comment on above: Result Comment: Aver age GFR for 50-59 years old: 93 mL/min/1.73sq m Chronic Kidney Disease: <60 mL/min/1.73sq m Kidney failure: <15 mL/min/1.73sq m eGFR calculated using average adult body mass. Additional eGFR calculator available at: http://[email or web address].[place]clon/multiple_crcl_2011.htm Performed By: #### L IP, CMPX, CDP #### [facility] [address] [place], [place] [id number] Barge Hand: Nino Farias MD Albumin mass conc 4.0 g/dL Normal 3.5-5.2 [facility] Comment on above: Performed By: #### L IP, CMPX, CDP #### [facility] [address] [place], [place] 3867283 Barge Hand: Nino Farias MD Albumin/Globulin mass ratio 1.3 {ratio} Normal 1.0-2.5 [facility] Comment on above: Performed By: #### L IP, CMPX, CDP #### [facility] [address] [place], [place] 2139483 Barge Hand: Nino Farias MD Alkaline Phos 58 U/L Normal 35-104 [facility] Comment on above: Performed By: #### L IP, CMPX, CDP #### [facility] [address] [place], [place] 9285[address] Barge Hand: Nino Farias MD Anion gap molar conc 8 mmol/L Low 9-17 [facility] Comment on above: Performed By: #### L IP, CMPX, CDP #### [facility] [address] [place], [place] 213[address]83 Barge Hand: Nino Farias MD AST enzyme act/vol 20 U/L Normal <32 [facility] Comment on above: Performed By: #### L IP, CMPX, CDP #### [facility] [address] [place], [place] 0784683 Barge Hand: Nino Farias MD Bilirubin Ql (U) 0.17 mg/dL Low 0.3-1.2 [facility] Comment on above: Performed By: #### L IP, CMPX, CDP #### [facility] [address] [place], [place] 514[address]83 Barge Hand: Nino Farias MD BUN/CRE Ratio 15 Normal 9-20 [facility] Comment on above: Performed By: #### L IP, CMPX, CDP #### [facility] [address] [place] [address] Barge Hand: Nino Farias MD Calcium mass conc 9.3 mg/dL Normal 8.6-10.4 [facility] Comment on above: Performed By: #### L IP, CMPX, CDP #### [facility] [address] [place] [address] Barge Hand: Nino Farias MD Chloride molar conc 97 mmol/L Low 98-107 [facility] Comment on above: Performed By: #### L IP, CMPX, CDP #### [facility] [address] [place], [place] 8093783 Barge Hand: Nino Farias MD CO2 molar conc 31 mmol/L Normal 20-31 [facility] Comment on above: Performed By: #### L IP, CMPX, CDP #### [facility] [address] [place] [address] Barge Hand: Nino Farias MD Creatinine mass conc 1.22 mg/dL High 0.50-0.90 [facility] Comment on above: Performed By: #### L IP, CMPX, CDP #### [facility] [address] [place], [place] 0577783 Barge Hand: Nino Farias MD GFR, Amer 55 mL/min Low >60 [facility] Comment on above: Performed By: #### L IP, CMPX, CDP #### [facility] [address] [place] [address] Barge Hand: Nino Farias MD GFR,non Amer 45 mL/min Low >60 [facility] Comment on above: Performed By: #### L IP, CMPX, CDP #### [facility] [address] [place] [address] Barge Hand: Nino Farias MD Glucose mass conc 93 mg/dL Normal 70-99 [facility] Comment on above: Performed By: #### L IP, CMPX, CDP #### [facility] [address] [place], [place] [address]45[address]83 Barge Hand: Nino Farias MD Potassium molar conc 4.5 mmol/L Normal 3.7-5.3 [facility] Comment on above: Performed By: #### L IP, CMPX, CDP #### [facility] [address] [place] [address] Barge Hand: Nino Farias MD Protein mass conc 7.0 g/dL Normal 6.4-8.3 [facility] Comment on above: Performed By: #### L IP, CMPX, CDP #### [facility] [address] [place] [address] Barge Hand: Nino Farias MD Sodium molar conc 136 mmol/L Normal 135-144 [facility] Comment on above: Performed By: #### L IP, CMPX, CDP #### [address] [place], [place] [id number] Barge Hand: Nino Farias MD Staging: Normal [facility] Comment on above: Result Comment: Stag e 1: Some kidney damage normal GFR Stage 2: Mild kidney damage GFR 60-89 Stage 3: Moderate kidney damage GFR 30-59 Stage 4: Severe kidney damage GFR 15-29 Stage 5: Severe kidney damage GFR <15 ESRD - chronic treatment by dialysis or transplant Performed By: #### L IP, CMPX, CDP #### [facility] [address] [place] [address] Barge Hand: Nino Farias MD Urea nitrogen mass conc 18 mg/dL Normal 6-20 [facility] Comment on above: Performed By: #### L IP, CMPX, CDP #### [facility] [address] [place], [place] [id number] Barge Hand: Nino Farias MD Lactic Acidon 09-08-2018 Lactate molar conc 1.2 mmol/L Normal 0.5-2.2 [facility] Comment on above: Performed By: #### L AC #### [facility] [address] [place], [place] [phone] Barge Hand: Nino Farias MD Lipaseon 09-08-2018 Lipase enzyme act/vol 27 U/L Normal 13-60 [facility] Comment on above: Performed By: #### L IP, CMPX, CDP #### [facility] [address] [place], [place] [phone] Barge Hand: Nino Farias MD UA w/Reflex Cultureon 2018 Acetoacetic Acid,Ur Negative Normal NEG [facility] Comment on above: Performed By: #### U MICAO, UAX #### [facility] [address] [place], [place] [address] Barge Hand: Nino Farias MD Bilirubin.direct mass conc SMALL Abnormal NEG [facility] Comment on above: Performed By: #### U MICAO, UAX #### [facility] [address] [place], [place] [id number] Barge Hand: Nino Farias MD Color Nom (U) YELLOW Normal YEL [facility] Comment on above: Performed By: #### U MICAO, UAX #### [facility] [address] [place], [place] [phone] Barge Hand: Nino Farias MD Glucose mass conc Negative Normal NEG [facility] Comment on above: Performed By: #### U MICAO, UAX #### [facility] [address] [place], [place] [phone] Barge Hand: Nino Farias MD Hemoglobin mass conc (Bld) Negative Normal NEG [facility] Comment on above: Performed By: #### U MICAO, UAX #### [facility] [address] [place], [place] [phone] Barge Hand: Nino Farias MD Leuckocyte Esterase Negative Normal NEG [facility] Comment on above: Performed By: #### U MICAO, UAX #### [facility] [address] [place], [place] [phone] Barge Hand: Nino Farais MD Nitrite,Ur Negative Normal NEG [facility] Comment on above: Performed By: #### U MICAO, UAX #### [facility] [address] [place], [place] [phone] Barge Hand: Nino Farias MD PH,Ur 5.5 Normal 5.0-9.0 [facility] Comment on above: Performed By: #### U MICAO, UAX #### [facility] [address] [place], [facility]83 Barge Hand: Nino Farias MD Protein mass conc Negative Normal NEG [facility] Comment on above: Performed By: #### U MICAO, UAX #### [facility] [address] [place], [place] [phone] Barge Hand: Nino Farias MD Spec. [place],Ur 1.010 Normal 1.010-1.020 [facility] Comment on above: Performed By: #### U MICAO, UAX #### [facility] [address] [place], [place] [id number] Barge Hand: Nino Farias MD Turbidity CLEAR Normal CLEAR [facility] Comment on above: Performed By: #### U MICAO, UAX #### [facility] [address] [place], [place] [phone] Barge Hand: Nino Farias MD Urobilinogen,Ur Normal Normal NORM [facility] Comment on above: Performed By: #### U MICAO, UAX #### [facility] [address] [place] [id number] Barge Hand: Nino Farias MD Comment NOT REPORTED Normal [facility] Comment on above: Performed By: #### U MICAO, UAX #### [facility] [address] [place] [id number] Barge Hand: Nino Farias MD Urinalysis,Microon 9 ----- Normal [facility] Comment on above: Performed By: #### U MICAO, UAX #### [facility] [address] [place], [facility]83 Barge Hand: Nino Farias MD Bacteria LM.HPF #/area (Urine sed) TRACE Abnormal [facility] Comment on above: Performed By: #### U MICAO, UAX #### [address] [place] [id number] Barge Hand: Nino Farias MD Epithelial cells LM.HPF #/area (Urine sed) None Normal 0-25 [facility] Comment on above: Performed By: #### U MICAO, UAX #### [address] [place], [facility]83 Barge Hand: Nino Farias MD RBC #/vol (U) None Normal 0-2 [facility] Comment on above: Performed By: #### U MICAO, UAX #### [facility] [address] [place], [facility]83 Barge Hand: Nino Farias MD WBC #/vol (U) 0 TO 2 Normal 0-5 [facility] Comment on above: Performed By: #### U MICAO, UAX #### [facility] [address] [place] [address] Barge Hand: Nino Farias MD Amorphous sediment LM Ql (Urine sed) NOT REPORTED Normal [facility] Comment on above: Performed By: #### U MICAO, UAX #### [facility] [address] [place] [address] Barge Hand: Nino Farias MD Casts LM.LPF #/area (Urine sed) NOT REPORTED Normal [facility] Comment on above: Performed By: #### U MICAO, UAX #### [facility] [address] [place], [place] [phone] Barge Hand: Nino Farias MD Crystals LM Nom (Urine sed) NOT REPORTED Normal NONE [facility] Comment on above: Performed By: #### U MICAO, UAX #### [facility] [address] [place] [address] Barge Hand: Nino Farias MD Epithelial, Renal NOT REPORTED Normal [address] [facility] Comment on above: Performed By: #### U MICAO, UAX #### [facility] [address] [place], [facility]83 Barge Hand: Nino Farias MD Mucus Strands NOT REPORTED Normal NONE [facility] Comment on above: Performed By: #### U MICAO, UAX #### [facility] [address] [place] [address] Barge Hand: Nino Farias MD Other Observations NOT REPORTED Normal NREQ [facility] Comment on above: Performed By: #### U MICAO, UAX #### [facility] [address] [place] [address] Barge Hand: Nino Farias MD Trichomonas NOT REPORTED Normal NONE [facility] Comment on above: Performed By: #### U MICAO, UAX #### [facility] [address] [place], [place] [phone] Barge Hand: Nino Farias MD Yeast LM Ql (Urine sed) NOT REPORTED Normal NONE [facility] Comment on above: Performed By: #### U MICAO, UAX #### [facility] [address] [place] [address] [place] [address] Barge Hand: Nino Farias MD Vital Signs Date Time Vital Sign Value Performing Clinician Gonzaloedy [email or web address] 07-05-2023 22:13-0500 Diastolic blood pressure 74 mm[Hg] Arsenio Mario [facility] 07-05-2023 22:13-0500 Heart rate 62 /min Arsenio Mario [facility] 07-05-2023 22:13-0500 Mean blood pressure 85 mm[Hg] Arsenio Mario [facility] 07-05-2023 22:13-0500 Respiratory rate 14 /min Arsenio Mario [facility] 07-05-2023 22:13-0500 SaO2% (BldA) [Mass fraction] 99 % Arsenio Mario [facility] 07-05-2023 22:13-0500 Systolic blood pressure 107 mm[Hg] Arsenio Mario [facility] 07-05-2023 21:49-0500 Diastolic blood pressure 69 mm[Hg] Arsenio Mario [facility] 07-05-2023 21:49-0500 Heart rate 59 /min Arsenio Mario [facility] 07-05-2023 21:49-0500 Mean blood pressure 80 mm[Hg] Arsenio Mario [facility] 07-05-2023 21:49-0500 Respiratory rate 15 /min Arsenio Mario [facility] 07-05-2023 21:49-0500 SaO2% (BldA) [Mass fraction] 97 % Arsenio Mario [facility] 07-05-2023 21:49-0500 Systolic blood pressure 101 mm[Hg] Arsenio Mario [facility] 07-05-2023 21:02-0500 Diastolic blood pressure 77 mm[Hg] Arsenio Mario [facility] 07-05-2023 21:02-0500 Heart rate 60 /min Arsenioulises Martin [facility] 07-05-2023 21:02-0500 Mean blood pressure 86 mm[Hg] Arsenio Mario [facility] 07-05-2023 21:02-0500 Respiratory rate 16 /min Arsenioulises Martin [facility] 07-05-2023 21:02-0500 SaO2% (BldA) [Mass fraction] 99 % Arsenio Mario [facility] 07-05-2023 21:02-0500 Systolic blood pressure 105 mm[Hg] Arsenio Mario [facility] 07-05-2023 17:45-0500 Body temperature 97.52 [degF] Arsenio Mario [facility] 07-05-2023 16:27-0500 Body temperature 96.44 [degF] Arsenio Mario [facility] 07-05-2023 15:15-0500 gluc 136 mg/dL Arsenio Martin [facility] 07-05-2023 15:15-0500 gluc Arsenioulises Martin [facility] 07-05-2023 15:02-0500 Body temperature 95.9 [degF] Arsenio Martin [facility] 07-05-2023 15:02-0500 Heart rate 54 /min Arsenio Martin [facility] 07-05-2023 15:02-0500 Respiratory rate 16 /min Arsenio Mario [facility] 08-09-2022 17:25-0400 Diastolic blood pressure 64 mm[Hg] Arsenio Mario [facility] 08-09-2022 17:25-0400 Heart rate 75 /min Arsenio Mario [facility] 08-09-2022 17:25-0400 Mean blood pressure 83 mm[Hg] Arsenio Mario [facility] 08-09-2022 17:25-0400 Respiratory rate 16 /min Arsenio Mario [facility] 08-09-2022 17:25-0400 SaO2% (BldA) [Mass fraction] 96 % Arsenio Mario [facility] 08-09-2022 17:25-0400 Systolic blood pressure 122 mm[Hg] Arsenio Mario [facility] 08-09-2022 16:00-0400 Diastolic blood pressure 56 mm[Hg] Arsenio Mario [facility] 08-09-2022 16:00-0400 Heart rate 64 /min Arsenio Mario [facility] 08-09-2022 16:00-0400 Mean blood pressure 72 mm[Hg] Arsenio Mario [facility] 08-09-2022 16:00-0400 SaO2% (BldA) [Mass fraction] 92 % Arsenio Mario [facility] 08-09-2022 16:00-0400 Systolic blood pressure 103 mm[Hg] Arsenio Mario [facility] 08-09-2022 15:00-0400 Diastolic blood pressure 67 mm[Hg] Arsenio Mario [facility] 08-09-2022 15:00-0400 Heart rate 61 /min Arsenio Martin [facility] 08-09-2022 15:00-0400 Mean blood pressure 80 mm[Hg] Arsenio Martin [facility] 08-09-2022 15:00-0400 Systolic blood pressure 106 mm[Hg] Arsenio Martin [facility] 08-09-2022 14:03-0400 SaO2% (BldA) [Mass fraction] 94.1 % Arsenioulises Martin [facility] Resp Auto SS 08-09-2022 13:10-0400 Body temperature 98.24 [degF] Arsenioulises Martin [facility] 08-09-2022 13:10-0400 Heart rate 70 /min Arsenio Martin [facility] 08-09-2022 13:10-0400 Respiratory rate 18 /min Arsenio Mario [facility] Encounters Encounter Date Encounter Type Care Provider Facility Start: 08-11-2023 Evaluation and management of inpatient [facility] Start: 08-10-2023 Evaluation and management of inpatient LOREE [facility] Start: 08-10-2023 End: 08-11-2023 Evaluation and management of inpatient [facility] Start: 07-31-2023 End: 07-31-2023 ambulatory [facility] Start: 07-11-2023 [facility] Start: 07-08-2023 Evaluation and management of inpatient GARNERLAYNE [facility] Start: 07-06-2023 Evaluation and management of inpatient BARRETT LARSON [facility] Start: 07-06-2023 End: 07-11-2023 Evaluation and management of inpatient ARSENIO MARTIN [facility] Start: 07-05-2023 End: 07-06-2023 Emergency department patient visit rAsenio Martin Facility:[facility] Start: 07-05-2023 End: 07-05-2023 Emergency department patient visit Arsenio Martin [facility] Start: 06-29-2023 Evaluation and management of inpatient ROSALBA MOSS [facility] Start: 06-29-2023 End: 07-02-2023 Evaluation and management of inpatient SOCORRO Zayas MATTHEW [facility] Start: 08-22-2022 End: 08-24-2022 Evaluation and management of inpatient DR ЕКАТЕРИНА ROBERT . Facility: Start: 08-09-2022 End: 08-09-2022 Emergency department patient visit Arsenio Martin Facility:[facility] Start: 08-09-2022 End: 08-09-2022 Emergency department patient visit Arsenio Martin [facility] Start: 07-30-2022 End: 08-01-2022 Evaluation and management of inpatient DR ЕКАТЕРИНА ROBERT . Facility: Start: 07-27-2022 End: 07-28-[address] ЕКАТЕРИНА ROBERT . Facility: Start: 05-08-2022 End: 05-09-[address] ЕКАТЕРИНА ROBERT . Facility:[facility] Start: 01-31-2022 End: 01-31-[address] ЕКАТЕРИНА ROBERT . Facility: Start: 11-01-2021 End: 11-03-2021 Evaluation and management of inpatient TAMIE FAJARDO Facility:[facility] Start: 10-31-2021 End: 11-01-2021 Evaluation and management of inpatient DR ЕКАТЕРИНА ROBERT . Facility:[facility] Start: 09-28-2021 End: 09-29-[address] ЕКАТЕРИНА ROBERT . Facility: Start: 09-06-2021 End: 09-07-[address] ЕКАТЕРИНА ROBERT . Facility:[facility] Start: 03-04-2021 End: 03-04-2021 Emergency department patient visit Magdalena Oconnor Facility:[facility] Start: 09-08-2018 End: 09-08-2018 Emergency department patient visit KEISHA DORADO JR [facility] Procedures Date Procedure Procedure Detail Performing Clinician Start: 08-02-2022 Microscopic examinat ion of blood, culture DR ЕКАТЕРИНА ROBERT . Comment on above: Performed By: #### B [id number] ####[facility] [id number] [place], [place] [address]Pc. Nahed Yañez Start: 11-02-2021 Antibody screen HANI SA AD Comment on above: Performed By: #### 3 [id number], [address] #### [facility] [address] [facility] Start: 07-16-2019 Phalangectomy of toe Fabián [...] Martin Payers Date Payer Category Payer Medicare [id number] 2021 Self-pay 2018 Medicare [id number] 1960 Unknown [id number] 2.16.8 [id number] 1960 Unknown [id number] 2.16.8 [id number] 1961 Unknown [id number] 2.16.84 [id number] 1961 Unknown [id number] 2.16.84 0.1.957439.3.579.2.593 1961 Unknown [id number] 2.16.84 0.1.990894.3.579.2.593 1961 Unknown [id number] 2.16.84 0.1.914641.3.579.2.593 1961 Unknown [id number] 2.16.84 0.1.932342.3.579.2.593 1961 Unknown [id number] 2.16.84 0.1.646318.3.579.2.593 1961 Unknown [id number] 2.16.84 0.1.172306.3.579.2.593 1961 Unknown [id number] 2.16.84 0.1.409815.3.579.2.593 1961 Unknown [id number] 2.16.8 40.1.770539.3.579.2.727 1961 Unknown [id number] 2.16.8 [id number] 1959 Unknown [id number] Unknown [id number] 2.16.8 [id number] Social History Date Type Detail Facility Start: 08-09-2022 Tobacco smoking status Heavy t obacco smoker (finding) [facility] Comment on above: 2 cigarettes a day Sex Assigned At Female [facility] Functional Status Date Assessment Result Facility 07-05-2023 Functional Status N/A [facility] 08-09-2022 Functional Status N/A [facility] Clinical Notes 11-03-2021 to 08-11-2023 Note Date [...] or edema. Patient states she lives in [place] and does not have a car. This limits follow up for her pacemaker however she does have appt scheduled for 08/20 at our [place] [facility]. Plan for a device check to [...] signed: ROSAMARIA ELENA (more content not included)... [facility] 08-11-2023 Note Hospital Medicine Discharge Summary [...] Your Medications These medications were sent to [facility]/pharmacy #[id number] [place] [address] oxyCODONE-acetaminophen 5-325 mg tablet Vivian is allergic [...] rate 20, h (more content not included)... [facility] 08-10-2023 Note 08/10/23 1645 Admission Assessment [...] Discharge? Yes Does the patient have a transplant case manager assigned to them through their [...] to send link and activate MyChart? No [facility] 08-10-2023 Note Hospital Medicine History and Physical 08/10/2023 11:43 AM THE HOSPITALIST TEAM PREFERS TO USE Glints CHAT FOR COMMUNICATION 7AM-7PM. IF I DO NOT RESPOND WITHIN 15 MINUTES, PLEASE PAGE ME/CALL THROUGH THE DIRECTOR OF PARKS AND RECREATION. FROM 7PM-7AM, PLEASE PAGE [phone](COVR) Chief Complaint pacemaker lead failure, status post [...] Bradycardia 07/06/2023 NSTEMI (non-ST elevated myocardial infarction) ([facility]) 06/29/2023 Other forms of angina pectoris 06/29/2023 Hypomagnesemia 06/29/2023 Acute midline low back pain without sciatica 06/29/2023 Coronary arteriosclerosis 11/24/2021 Hyperlipidemia 11/24/2021 Type 2 diabetes mellitus ([facility]) 11/24/2021 Acute non-ST segment elevation myocardial infarction ([facility]) 11/24/2021 Cigarette smoker 11/24/2021 Pacemaker lead failure [...] this hospital stay by a member of [facility]. Past Medical History No past medical [...] Alcohol use: Not (more content not included)... [facility] 08-10-2023 Note Indications for vent ricular [...] of the upper extremity Loree Chance M.D. [facility] Karate Teacherboss dyer and Pediatrics Director: Cardiac Electrophysiology Program [facility] 08-10-2023 Note Patient: Vivian Dela Cruz or Procedure Information Date/Time: 08/10/23829 Procedure: Pacemaker lead revision - Biotronik Location: [facility] TELECOMMUNICATIONS PROJECT MANAGER 1 EP / [facility] HVC VASCULAR LAB (Cath) Providers: Loree Chance [...] discussed with patient who. Additional Equipment Requests [facility] 07-11-2023 Note Hospital Medicine Discharge Summary [...] 10:20 AM Socorro Oviedo NP CARD [facility] 08/06/2023 1:30 PM [facility] CV CLINIC DEVICE CHECK HVC CARD VA [...] 70.4 kg (1 (more content not included)... [facility] 07-11-2023 Note Occupational Therapy Occupational Therapy [...] List Diagnosis NSTEMI (non-ST elevated myocardial infarction) ([facility]) Coronary arteriosclerosis Hyperlipidemia Type 2 diabetes mellitus ([facility]) Acute non-ST segment elevation myocardial infarction ([facility]) Cigarette smoker Other forms of angina pectoris [...] Level of Function Prior Function Level of [place]: Independent with ADLs and functional transfers, Independent [...] Eating meals?: None (Independent) Total Score OT [facility]: 24 Assessment/Plan OT Assessment OT Education/Comments: (PPM handout issued and discussed with good return demo) Plan OT Plan: No skilled OT OT Discharge Recommendations: Home OT - Discharge Recommendations Placed: Yes OT Goals Multi-Disciplinary Problems (from Occupational Therapy) Active Problems Not on file [facility] 07-11-2023 Note UTP CARDIOLOGY PROGR ESS [...] Normal heart size. Electronically signed: Denver Hernandez. [facility] 06/29/23: Final Impression: 1) Coronary angiogram [...] left ventricular sys (more content not included)... [facility] 07-11-2023 Note Hospital Medicine Daily Progress Note - 07/11/2023 8:24 AM; Room: [address] [place] [address] Admission: 07/06/2023 12:25 AM; Length of stay: 5 days THE HOSPITALIST TEAM PREFERS TO USE Glints CHAT FOR COMMUNICATION 7AM-7PM. IF I DO NOT RESPOND WITHIN 15 MINUTES, PLEASE PAGE ME/CALL THROUGH THE DIRECTOR OF PARKS AND RECREATION. FROM 7PM-7AM, PLEASE PAGE [phone](COVR) Code Status: Full Code Barriers to Discharge: [...] LDL 95 07/06/2023 No results found for: [id number] , IRON , TIBC , C3 , [...] clear. Normal heart (more content not included)... [facility] 07-10-2023 Note Indications for dual -chamber [...] of the upper extremity Loree Chance M.D. [facility] Karate Teacherboss dyer and Pediatrics Director: Cardiac Electrophysiology Program [facility] 07-10-2023 Note Patient: Vivian Dela Cruz or Procedure Information Date/Time: 07/10/23 1500 Procedure: Implant PPM Location: [facility] TELECOMMUNICATIONS PROJECT MANAGER 1 / [facility] VASCULAR LAB (Cath) Providers: Loree [...] discussed with patient who. Additional Equipment Requests [facility] 07-10-2023 Note UTP CARDIOLOGY PROGR ESS [...] lock IV AND sodium chloride CV Testing: [facility] 06/29/23: Final Impression: 1) Coronary angiogram [...] 86 QT Interval 466 QTC CALCULATION(BAZETT) 476 R-Prather 34 T Wave Prather [address] & Marked T wave abnormality, consider anterolateral ischemia Prolonged QT Abnormal ECG When compared with ECG of 06-JUL-2023 14:34, T wave inversion less evident in Lateral Confirmed by Yoan GRIJALVA, KIERA Rainey (57) on 07/08/2023 12:23:36 PM Assessment/Plan Junctional bradycardia Abnormal EKG- ST/T wave changes concerning for ischemia- LHC showed stable CAD Ventric (more content not included)... [facility] 07-10-2023 Note Hospital Medicine Daily Progress Note - 07/10/2023 8:08 AM; Room: [address] [place] [address] Admission: 07/06/2023 12:25 AM; Length of stay: 4 days THE HOSPITALIST TEAM PREFERS TO USE Glints CHAT FOR COMMUNICATION 7AM-7PM. IF I DO NOT RESPOND WITHIN 15 MINUTES, PLEASE PAGE ME/CALL THROUGH THE DIRECTOR OF PARKS AND RECREATION. FROM 7PM-7AM, PLEASE PAGE [phone](COVR) Code Status: Full Code Barriers to Discharge: [...] LDL 95 07/06/2023 No results found for: [id number] , IRON , TIBC , C3 , [...] need to arrange for her transportation needs; adjusto writer operator provided printed information to Pt for local [employer] companies for Pt (more content not included)... [facility] 07-09-2023 Note Patient admitted to the hospital for: Bradycardia. Chart echo from 06/29/2023 reports: EF 60%. Echo report does Not qualify for Cardiac Rehab services per CMS eligibility criteria. A Cardiac Rehab referral must also meet CMS criteria. Marline Suarez, RN, BSN Cardiopulmonary Rehab Coordinator [facility] 07-09-2023 Note Cardiology Inpatient Progress Note [...] 86 QT Interval 466 QTC CALCULATION(BAZETT) 476 R-Prather 34 T Wave Prather [address] & Marked [...] J. (57) on 07/08/2023 12:23:36 PM 06/29/23 [facility] Final Impression: 1) Coronary angiogram shows [...] of bradycardia. Patient has been transferred to [facility] for consideration of pacemaker placement. As per patient, her heart rate was 18 at the outside hospital, however I could not confirm from any documentation. During the current hospitalization, so far patient's heart rate has been ranging 40-50. EKG performed in the ED showed diffuse T wave inversions with junctional rhythm. Telemetry shows sinus bradycardia a (more content not included)... [facility] 07-09-2023 Note Hospital Medicine Daily Progress Note - 07/09/2023 11:10 AM; Room: [facility]/[address] [place] [address] Admission: 07/06/2023 12:25 AM; Length of stay: 3 days THE HOSPITALIST TEAM PREFERS TO USE Glints CHAT FOR COMMUNICATION 7AM-7PM. IF I DO NOT RESPOND WITHIN 15 MINUTES, PLEASE PAGE ME/CALL THROUGH THE DIRECTOR OF PARKS AND RECREATION. FROM 7PM-7AM, PLEASE PAGE [phone](COVR) Code Status: Full Code Barriers to Discharge: [...] LDL 95 07/06/2023 No results found for: [id number] , IRON , TIBC , C3 , C4 , WENDI , CANCA , ASO , PSA , CEA , CA125 , CA199 , AFP , CA153 Imaging ECG [address] & Marked T wave abnormality, consider anterolateral ischemia Prolonged QT Abnormal ECG When compared with ECG of 06-JUL-2023 14:34, T wave inversion less evident in Lateral Confirmed by Yoan GRIJLAVA, KIERA Rainey (58) on 07/08/2023 12:23:36 PM Discharge Planning TBD Signed Barrett Haider MD MS4 [facility] Medicine 07/09/2023 11: (more content not included)... [facility] 07-08-2023 Note ---- Attestation signed by [...] 86 QT Interval 466 QTC CALCULATION(BAZETT) 476 R-Prather 34 T Wave Prather [address] & Marked T wave abnormality, consider anterolateral ischemia Prolonged QT Abnormal ECG When compared with ECG of 06-JUL-2023 14:34, T wave inversion less evident in Lateral Lab Results Component Value Date CKTOTAL 36.0 07/06/2023 TROPONINI 0.12 () 07/06/2023 Complete Echo (TTE) w/wo Imaging Agent, Strain, 3D, Bubble Study Result Date: 06/29/2023 1 [facility] Heart Station [address] [place] [address] [phone] (fax) Echocardiogram-[facility] Name: VIVIAN VANN Study Date: 06/29/2023 12:30 PM B/P: 135 mmHg/89 mmHg HR: Date of : 1960 Location: [facility] Height: 67 in. Age: 63 [...] Valve: The mitr (more content not included)... [facility] 07-08-2023 Note Hospital Medicine Daily Progress Note - 07/08/2023 8:42 AM; Room: [address] [place] [address] Admission: 07/06/2023 12:25 AM; Length of stay: 2 days THE HOSPITALIST TEAM PREFERS TO USE [employer] CHAT FOR COMMUNICATION 7AM-7PM. IF I DO NOT RESPOND WITHIN 15 MINUTES, PLEASE PAGE ME/CALL THROUGH THE DIRECTOR OF PARKS AND RECREATION. FROM 7PM-7AM, PLEASE PAGE [phone](COVR) Code Status: Full Code Barriers to Discharge: [...] LDL 95 07/06/2023 No results found for: VDECSIAL73 , IRON , TIBC , C3 , [...] Planning TBD Signed Barrett Haider MD MS4 [facility] Medicine 07/08/2023 8:42 AM [facility] 07-07-2023 Note ---- Attestation signed by [...] 84 QT Interval 434 QTC CALCULATION(BAZETT) 451 R-Prather 23 T Wave Prather [address] & Marked [...] 1 1 [facility] Heart Station [address] [place], [place] [phone] (fax) Echocardiogram-[facility] Name: VIVIAN VANN Study Date: 06/29/2023 12:30 PM B/P: 135 mmHg/89 mmHg HR: Date of : 1960 Location: [facility] Height: 67 in. Age: 63 [...] abnormality. Right Ventricle: (more content not included)... [facility] 07-07-2023 Note Hospital Medicine Daily Progress Note - 07/07/2023 10:19 AM; Room: [address] [place] [address] Admission: 07/06/2023 12:25 AM; Length of stay: 1 days THE HOSPITALIST TEAM PREFERS TO USE [employer] CHAT FOR COMMUNICATION 7AM-7PM. IF I DO NOT RESPOND WITHIN 15 MINUTES, PLEASE PAGE ME/CALL THROUGH THE DIRECTOR OF PARKS AND RECREATION. FROM 7PM-7AM, PLEASE PAGE [phone](COVR) Code Status: Full Code Barriers to Discharge: [...] 4.6 3.7 CHLORIDE (more content not included)... [facility] 07-06-2023 Note communication receiv ed that Patient stating does not have transportation to return home at discharge At 07/02/2023 discharge, [facility] provided a one-time courtesy taxi cab transportation for Patient to return to her home (Patient's residence is 57 [address]-way from [facility] and cost for taxi cab was $146); [facility] is not able to provide another taxi cab. The following information was printed and provided to the Patient to make her own transportation arrangements for once she is medically cleared for discharge: [facility] [place] [address] [place] [employer] to ask if non-emergency medical transportation is a covered benefit of the specific plan (https://www.[employer].com/contact-us/[place]/) Taxis in [place] (https://co.jonnie.vt./3086/Taxi) [employer] 135-521-YBGS ([phone]) [employer] [phone] [facility] 07-06-2023 Note 07/06/23 1625 Referral Data Referral Source medical case worker Patient Information Primary Caregiver Self Activities [...] need to arrange for her transportation needs; adjusto writer operator provided printed information to Pt for local taxi [employer] companies for Pt to consider; [facility] unable to pay for another one-time courtesy taxi cab for 57miles one-way trip) [facility] 07-06-2023 Note 1526 adjusto writer operator attempted to meet with Pt to discuss discharge planning (including Patient will need to arrange her transportation once she is medically cleared to discharge to home); Patient not in bed; unable to complete [id number] 1542 adjusto writer operator attempted to meet with Pt to discuss discharge planning (including Patient will need to arrange her transportation once she is medically cleared to discharge to home); Patient caring for toileting hygiene; unable to complete [id number]-fh-[id number] [facility] 07-06-2023 Note 07/06/23 1219 Admission Assessment [...] Discharge? Yes Does the patient have a transplant case manager assigned to them through their [...] to send link and activate MyChart? Yes [facility] 07-06-2023 Note ---- Attestation signed by [...] Progress Note - 07/06/2023 11:37 AM; Room: [address] [place] [address] Admission: 07/05/2023 11:50 PM; Length of stay: 1 days THE HOSPITALIST TEAM PREFERS TO USE [employer] CHAT FOR COMMUNICATION 7AM-7PM. IF I DO NOT RESPOND WITHIN 15 MINUTES, PLEASE PAGE ME/CALL THROUGH THE DIRECTOR OF PARKS AND RECREATION. FROM 7PM-7AM, PLEASE PAGE [phone](COVR) Code Status: Full Code Barriers to Discharge: [...] -Continue home medi (more content not included)... [facility] 07-06-2023 Note . Hospital Medicine History and Physical 07/06/2023 1:19 AM THE HOSPITALIST TEAM PREFERS TO USE [employer] FOR COMMUNICATION 7AM-7PM. IF I DO NOT RESPOND WITHIN 15 MINUTES, PLEASE PAGE ME/CALL THROUGH THE DIRECTOR OF PARKS AND RECREATION. FROM 7PM-7AM, PLEASE PAGE [phone](COVR) Chief Complaint No chief complaint on file. History of Present Illness Vivian Vann is an 63 y.o. female who came from home with CP. This is a 63 years old female lady with a medical history of hypertension, tobacco smoking, A-fib, CHF. Came into the [facility] as a direct admit transfer [...] Bradycardia 07/06/2023 NSTEMI (non-ST elevated myocardial infarction) ([facility]) 06/29/2023 Other forms of angina pectoris 06/29/2023 Hypomagnesemia 06/29/2023 Acute midline low back pain without sciatica 06/29/2023 Coronary arteriosclerosis 11/24/2021 Hyperlipidemia 11/24/2021 Type 2 diabetes mellitus ([facility]) 11/24/2021 Acute non-ST segment elevation myocardial infarction ([facility]) 11/24/2021 Cigarette smoker 11/24/2021 Assessment and Plan [...] this hospital stay by a member of [facility]. Past Medical History No past medical [...] (CARDIA) Difficulty of (more content not included)... [facility] 07-05-2023 Evaluation + Plan note Extrac [...] * Drug Screen Urine 07/05/23 [facility]02-19-2024 NotePatient admitted to the hospital for: NSTEMI. Review of the last noted chart Echo from 06/29/2023 reports: EF 60%. Reported echo result does not qualify for Cardiac Rehab services per CMS eligibility criteria for CHF. Marline Suarez, RN, BSN [facility]-2024 Note07/02/23 1116 Referral Data Referral Source medical case worker Patient Information Primary Caregiver Self Activities of Daily Living Assistive Device Not applicable Living Arrangement (Current/Prior to Hospitalization) Private residence;Home self care Behavior Oriented Communication Talks;Understands speaking Discharge Planning Support Systems Therapist (planning discharge to home; communication rcvd Pt not wanting [facility] services) Type of Residence/Post Acute Needs Private residence Will patient need Precert for Post Acute needs? No Patient's goal for discharge home RucCC screened; Pt declining HHC, SW Consult resolved 1340 Communication received that Pt needing transportation to home since was transferred here from [facility], does not drive, lives alone, does not have friends or family who can transport ([phone]) PC to [employer]; from [address] [place] [address] [address] [place] [address] will be $146 Flight Test Engineer provided verbal estimate to supervisor polishing, verbal approval from supervisor polishing 1408 taxi cab transportation arranged; bedside RN notified Confirmation #: [id number] Passenger: VIVIAN VANN Phone Number: [phone] Pickup Date/Time: 07/02/2023 3:00 PM Pickup Address: [facility], [address] [place] [address], [address] Drop Off Address: [address] [place] [address]. Ride Notes: please pickup at [facility]02-19-2024 Note07/02/23 1017 Admission Assessment Questions Verify [...] Discharge? Yes Does the patient have a transplant case manager assigned to them through their [...] able to send link and activate MyChart? [facility]02-19-2024 Note Attestation signed by Merritt Guerrero [...] Value Ventricular Rate 61 Atrial Rate 61 RI Interval 150 QRS DURATION 88 QT Interval 476 QTC CALCULATION(BAZETT) 479 P Prather 68 R-Prather 25 T Wave Prather 128 Impression Normal sinus rhythm Right atrial [...] 1 1 [facility] Heart Station [address] [place] [address] [phone] (fax) Echocardiogram-[facility] Name: VIVIAN VANN Study Date: 06/29/2023 12:30 PM B/P: 135 mmHg/89 mmHg HR: Date of : 1960 Location: [facility] Height: 67 in. Age: 63 [...] ventricular systolic function. Dop (more content not included)...[facility]02-18-2024 NoteHospital Medicine Daily Progress Note - 07/01/2023 12:00 PM; Room: [address] [place] [address] Admission: 06/29/2023 11:04 AM; Length of stay: 2 days THE HOSPITALIST TEAM PREFERS TO USE [employer] CHAT FOR COMMUNICATION 7AM-7PM. IF I DO NOT RESPOND WITHIN 15 MINUTES, PLEASE PAGE ME/CALL THROUGH THE DIRECTOR OF PARKS AND RECREATION. FROM 7PM-7AM, PLEASE PAGE [phone](COVR) Code Status: Full Code Barriers to Discharge: [...] Principal Problem: NSTEMI (non-ST elevated myocardial infarction) ([facility]) Active Problems: Hyperlipidemia Type 2 diabetes mellitus ([facility]) Other forms of angina pectoris Hypomagnesemia Acute [...] LDL 114 11/02/2021 No results found for: XTZYFHMY14 , IRON , TIBC , C3 , C4 , WENDI , CANCA , ASO , PSA , CEA , CA125 , CA199 , AFP , CA153 Imaging ECG 12 lead Normal sinus rhythm Right atrial (more content not included)...[facility] 07-01-2023 Note Attestation signed by Merritt [...] Value Ventricular Rate 61 Atrial Rate 61 RI Interval 150 QRS DURATION 88 QT Interval 476 QTC CALCULATION(BAZETT) 479 P Prather 68 R-Prather 25 T Wave Prather 128 Impression Normal sinus rhythm Right atrial [...] 1 1 [facility] Heart Station [address] [phone] (fax) Echocardiogram-[facility] Name: VIVIAN VANN Study Date: 06/29/2023 12:30 PM B/P: 135 mmHg/89 mmHg HR: Date of : 1960 Location: [facility] Height: 67 in. Age: 63 [...] Right Ventricle: The r (more content not included)...[facility]02-17-2024 Note Attestation signed by Merritt Guerrero [...] still marginally hypotensive. PCWP was 35 on [facility] yesterday. Denies CP, SOB or orthopnea. [...] Value Ventricular Rate 61 Atrial Rate 61 RI Interval 150 QRS DURATION 88 QT Interval 476 QTC CALCULATION(BAZETT) 479 P Prather 68 R-Prather 25 T Wave Prather 128 Impression Normal sinus rhythm Right atrial [...] 1 1 [facility] Heart Station [address] [address] [phone] (fax) Echocardiogram-[facility] Name: VIVIAN VANN Study Date: 06/29/2023 12:30 PM B/P: 135 mmHg/89 mmHg HR: Date of : 1960 Location: [facility] Height: 67 in. Age: 63 [...] Mild Mild N (more content not included)... [facility]02-17-2024 NoteHospital Medicine Daily Progress Note - 06/30/2023 11:32 AM; Room: [address] [place] [address] Admission: 06/29/2023 11:04 AM; Length of stay: 1 days THE HOSPITALIST TEAM PREFERS TO USE [employer] CHAT FOR COMMUNICATION 7AM-7PM. IF I DO NOT RESPOND WITHIN 15 MINUTES, PLEASE PAGE ME/CALL THROUGH THE DIRECTOR OF PARKS AND RECREATION. FROM 7PM-7AM, PLEASE PAGE [phone](COVR) Code Status: Full Code Barriers to Discharge: [...] Principal Problem: NSTEMI (non-ST elevated myocardial infarction) ([facility]) Active Problems: Hyperlipidemia Type 2 diabetes mellitus ([facility]) Other forms of angina pectoris Hypomagnesemia Acute [...] LDL 114 11/02/2021 No results found for: RKGTOOXV14 , IRON , TIBC , C3 , C4 , WENDI , CANCA , ASO , PSA , CEA , CA125 , CA199 , AFP , CA153 Imaging ECG 12 lead Normal sinus rhythm Right atrial enlargement ST & T wave abnormality, consider ante (more content not included)...[facility]02-16-2024 NotePatient: Vivian Aguillondor Procedure Information Date/Time: 06/29/23 1655 Procedure: Coronary angiography Location: [facility] 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 Plan discussed with attending. Additional Equipment RequestsMary[facility] Hospital02-16-2024 Note Hospital Medicine History and Physical 06/29/2023 12:51 PM THE HOSPITALIST TEAM PREFERS TO USE [employer] CHAT FOR COMMUNICATION 7AM-7PM. IF I DO NOT RESPOND WITHIN 15 MINUTES, PLEASE PAGE ME/CALL THROUGH THE DIRECTOR OF PARKS AND RECREATION. FROM 7PM-7AM, PLEASE PAGE [phone](COVR) Chief Complaint Direct admission from [facility] for NSTEMI requiring cardiac cath History of Present Illness Vivian Vann is an 63 y.o. female who came from [facility] as direct asmission for NSTEMI. Patient presented 06/28/23 to [facility] for c/o chest pain and lower back pain. Patient troponin level found to be 557 and EKG showed new ischemia and inverted T-waves, NSTEMI. She was given nitroglycerin and started on heparin drip. Patient is 1 year s/p stent placement at [facility] on plavix and aspirin. Dr. Yoo with cardiology agreed to patient transfer here to [facility] with hospital medicine admitting and [...] Low back pending. Laboratory workup here at [facility] shows CBC unremarkable w/ exception [...] nursing note reviewed. Exam conducted with a meter maker present. Constitutional: General: She is not in [...] Date Noted NSTEMI (non-ST elevated myocardial infarction) ([facility]) 06/29/2023 Assessment and Plan Chest pain Low Back Pain NSTEMI -Troponin 557 at [facility], troponin now 0.07 - aPTT 67.3, [...] Heparin drip with titratio (more content not included)...[facility]04-05-2023 NoteMicrobiology PROCEDURE: Blood Culture Charcoal [R1] [...] Locations R1: [facility] at: [facility], [address] [place] [address], [id number]- , , KqvomhUk HealthcareComment on above:Performed By: #### [id number] ####[facility] [address] [place], [place] [id number] NoteMicrobiology PROCEDURE: Blood Culture Charcoal [R1] SOURCE: Blood BODY SITE: Arm L COLLECTED DATE/TIME: 08/09/2022 14:09 EDT RECEIVED DATE/TIME: 08/09/2022 14:17 EDT START DATE/TIME: 08/09/2022 14:17 EDT FREE TEXT SOURCE: lt reshma Lucero PA-C, Clinton Lucero PA-C, Clinton Whyte FINAL REPORTS Final Report [] Verified Date/Time: 08/16/2022 15:58 EDT No growth at 7 days. Performing Locations R1: This test was performed at: [facility], [address] [place] [address], [id number], JopapnUk HealthcareComment on above:Performed By: #### [id number] ####[facility] [address] [place] [address] [id number] Hospital Discharge instructions Patient Education 08/09/2022 16:50:59 [...] Follow these instructions at home: Medicines Take xwbk-jcd-ngegmhe and prescription medicines (inhaled or pills) only [...] 02/07/2006 Document Revised: 04/12/2018 Document Reviewed: 06/04/2017 [employer] Patient Education 2020 [employer]. Follow Up Care 08/09/2022 13:09:28 With:Екатерина Robert Address: [address] [place] [id number] Business (1) When:08/12/2022 16:50:37 Comments:Call the office [...] any new or worsening symptoms. [facility]03-29-2023 Evaluation + Plan noteExtracted from: Title:ED Note Author:Nic BOND, Clinton Whyte Eliud e:08/09/22 COPD exacerbation (J44.1: Ch ronic obstructive pulmonary disease with (acute) exacerbation) Orders: albuterol-ipratropium, 3 mL, Soln-Inh, Inhalation, Once, Stop date 08/09/22 13:50:00 EDT, STAT, Start date 08/09/22 13:50:00 EDT brompheniramine/dextromethorphan/PSE, 5 mL, Oral, QID for cold symptoms, 200 mL, Refill(s) 0, [facility], 170.2, cm, 08/09/22 13:13:00 EDT, Height/Length Dosing, 81.6, kg, 08/09/22 13:13:00 EDT, Weight Dosing guaifenesin, 600 mg = 1 tab(s), Oral, q12hr, X 7 day(s), # 14 tab(s), Refills(s) 0, Pharmacy: [facility], 170.2, cm, 08/09/22 13:13:00 EDT, Height/Length [...] day(s), # 15 tab(s), Refills(s) 0, Pharmacy: [facility], 170.2, cm, 08/09/22 13:13:00 EDT, Height/Length Dosing, [...] * Blood Culture Charcoal 08/09/22 [facility]06-23-2022 NoteMR#: [id number] I [facility] Pt. Name: Vivian Vann Admitted: 11/01/2021 Discharged: 11/03/2021 Date of : 1960 Physician: Tamie Fajardo MD DISCHARGE SUMMARY PRINCIPAL DIAGNOSIS: Utu-YC-kuwunrfnd myocardial infarction. SECONDARY DIAGNOSES: 1. Questionable small subsegmental PE in the right lower lobe, favored to be chronic per CT angio done outside facility. 2. Peptic ulcer disease. 3. Depression. 4. Chronic obstructive pulmonary disease. 5. THC use. 6. Nicotine use. HOSPITAL COURSE: Again, the patient was admitted to the hospital on 11/01/2021, with chest pain and she was found to have a lxq-AP-njmtrfaaa MT. The patient underwent cardiac catheterization and had [...] Fajardo MD Date Trans: 11/03/2021 01:10 P/mmo [id number] cc: Gasper Avendano M.D. [facility] [address] Екатерина Robert M.D. [facility] [address] [place] [address]., [facility] [id number] Narrative No data available for this section [facility] No data available for this section [facility] No data available for this section [facility] Summary Purpose Family History No Family History [...] and content) DATE CREATED AUTHOR [facility]/12/2018 [facility] DATE CREATED AUTHOR AUTHOR'S ORGANIZ ATION 01/06/2022 [facility] DATE CREATED AUTHOR AUTHOR'S ORGANIZ ATION 09/05/[address] [facility] DATE CREATED AUTHOR AUTHOR'S ORGANIZ ATION 07/13/2023 [facility] DATE CREATED AUTHOR AUTHOR'S ORGANIZ ATION 08/04/2023 [facility] DATE CREATED AUTHOR AUTHOR'S ORGANIZ ATION 08/11/2023 [facility] Patient Care team informatio n (unrecognized section and content) Personnel Name: Екатерина Robert MD Address: Address: [address] [place] [address] Personnel Name: Екатерина Robert MD Address: Address: [address] [place] [address] FOR RECORDS PERTAINING TO PATIENTS WHO ARE [...] BE BASED ON THE PRIMARY CLINICAL RECORDS. [facility]. provides no warranty or guarantee of the accuracy or completeness of information in this document.
[2023-08-21] MEDS: ACETAMINOPHEN 325 MG TABLET 650 MG PO (05:10)
[2023-08-21] MEDS: GABAPENTIN 300 MG CAPSULE PO ×3 (05:11→21:50)
[2023-08-21] MEDS: BENZONATATE 100 MG CAPSULE 200 MG PO ×3 (05:11→21:50)
[2023-08-21 05:24] LABS: Basophils Percent Auto 0.3 % (0.2-2.0); Eosinophils Absolute Auto 0.2 10^3/uL (0.0-0.7); Eosinophils Percent Auto 1.7 % (0.9-7.0); Hemoglobin 11.8 g/dL (12.0-16.0); Immature Granulocytes Abs Auto 0.03 10^3/uL (0.00-0.03); Immature Granulocytes Pct Auto 0.3 % (0.0-0.5); Lymphocytes Percent Auto 11.3 % (20.5-60.0); Mean Corpuscular HGB Conc 29.5 g/dL (29.9-35.2); Mean Corpuscular Hemoglobin 26.9 pg (26.7-34.0); Mean Corpuscular Volume 91.3 fL (81.0-99.0); Mean Platelet Volume 10.2 fL (9.5-13.5); Monocytes Absolute Auto 0.1 10^3/uL (0.3-0.8); Monocytes Percent Auto 1.4 % (1.7-12.0); Neutrophils Absolute Auto 7.5 10^3/uL (1.4-6.5); Platelet Count 298 10^3/uL (150-450); Red Blood Count 4.38 10^6/uL (4.20-5.40); Red Cell Distribution Width 15.6 % (11.0-15.0); White Blood Count 8.8 10^3/uL (4.0-11.0)
[2023-08-21] MEDS: LEVOTHYROXINE SODIUM 75 MCG TABLET PO (05:50)
[2023-08-21 05:52] LABS: Alanine Aminotransferase 49 U/L (14-59); Albumin Globulin Ratio 0.9; Albumin Level 3.4 g/dL (3.4-5.0); Alkaline Phosphatase 111 U/L (46-116); Anion Gap 13.1; Aspartate Amino Transferase 36 U/L (15-37); BUN Creatinine Ratio 14.9; Bilirubin Total 0.4 mg/dL (0.2-1.0); Calcium 9.4 mg/dL (8.5-10.1); Carbon Dioxide 29.4 mmol/L (21.0-32.0); Chloride 100 mmol/L (98-107); Estimated GFR (African America >60 (>=60); Estimated GFR (Non-African Ame 56 (>=60); Globulin 3.8 g/dL; Glucose 221 mg/dL (74-106); Potassium 4.5 mmol/L (3.5-5.1); Sodium 138 mmol/L (136-145); Total Protein 7.2 g/dL (6.4-8.2)
[2023-08-21 06:02] LABS: Troponin I High Sensitivity 133.5 pg/mL (4.0-51.3)
--- NOTE | 2023-08-21 07:48 | P.HP_ITS ---
HPI H&P: HPI History of Present Illness Chief complaint: diff breathing Narrative: Patient was seen and evaluated in the emergency room with acute gastroenteritis symptoms. Nausea, and diarrhea. While in ER she also had an acute drop in her saturation with O2 sat less than 88%, was down to 85% on room air, patient mated for workup and treatment of same When I saw the patient up on the medical surgical floor, she was resting fairly comfortably for her, still some mild conversational dyspnea. This may be chronic for her. She states her breathing does feel worse than her baseline. Opioid HPI Opioid Management Most Recent Opioid Data: Last Pain Scale 4 08/21/23 06:08 Last Pain Assessment 08/21/23 12:16 Last MAR Pain Assessment 08/21/23 06:08 Last ORT Total Score 1 08/21/23 04:10 Last ORT Risk Category Low Risk 08/21/23 04:10 Ur Phencyclidine Scrn Negative (NEGATIVE) 06/10/23 09:30 Review of Systems ROS Status of ROS 10 or more systems reviewed and unremark able except as noted in history and below PFS PFS Medical History (Updated 08/21/23 @ 12:18 by Charlie Richardson MD) Acute kidney injury ?N17.9 - Acute kidney failure, unspecified (ICD-10) Acute anxiety ?F41.9 - Anxiety disorder, unspecified (ICD-10) Coronary artery disease ?I25.10 - Atherosclerotic heart disease of resighini coronary artery without angina pectoris (ICD-10) Pacemaker ?Z95.0 - Presence of cardiac pacemaker (ICD-10) Iron deficiency anemia ?D50.9 - Iron deficiency anemia, unspecified (ICD-10) COPD (chronic obstructive pulmonary disease) ?J44.9 - Chronic obstructive pulmonary disease, unspecified (ICD-10) Hypoxia ?R09.02 - Hypoxemia (ICD-10) Elevated troponin ?R79.89 - Other specified abnormal findings of blood chemistry (ICD-10) Dyspnea ?R06.00 - Dyspnea, unspecified (ICD-10) Elevated brain natriuretic peptide (BNP) level ?R79.89 - Other specified abnormal findings of blood chemistry (ICD-10) Hypertension ?I10 - Essential (primary) hypertension (ICD-10) Elevated troponin ?R79.89 - Other specified abnormal findings of blood chemistry (ICD-10) Acute dyspnea ?R06.00 - Dyspnea, unspecified (ICD-10) IBS (irritable bowel syndrome) ?K58.9 - Irritable bowel syndrome without diarrhea (ICD-10) Anxiety ?F41.9 - Anxiety disorder, unspecified (ICD-10) Heart attack ?I21.9 - Acute myocardial infarction, unspecified (ICD-10) Sciatic leg pain ?M54.30 - Sciatica, unspecified side (ICD-10) Herniated disc, cervical ?M50.20 - Other cervical disc displacement, unspecified cervical region (ICD- 10) Surgical History History of appendectomy ?Z90.49 - Acquired absence of other specified parts of digestive tract (ICD- 10) History of heart artery stent ?Z95.5 - Presence of coronary angioplasty implant and graft (ICD-10) Family History (Updated 07/29/23 @ 19:32 by Consuelo Dejesus RN) Mother Family history of CHF (congestive heart failure) Family history of hypertension Father Family history of CHF (congestive heart failure) Brother Family history of CHF (congestive heart failure) Other Family history of diabetes mellitus Family history of myocardial infarction Social History (Updated 07/29/23 @ 19:35 by Consuelo Dejesus RN) Within the past year, how often did you have a drink containing alcohol: monthly or less Smoking status: Current every day smoker Nicotine containing products detail: 1 pack/week Non-prescribed substance use: cannabis (any form) Non-prescribed substance use details: smokes marijuana, gummies Highest level of school completed/degree received: high school graduate Are you now , , , , never or living with a partner: In a typical week, how many times do you talk on the telephone with family, friends, or neighbors: once per week How often do you get together with friends or relatives: never How often do you attend anglican or restoration services: 4 or more times per year Do you belong to any clubs or organizations such as anglican groups unions, fraternal or athletic groups, or school groups: no Total score: 1 Score interpretation: A score of less than or equal to 1 indicates the most socially isolated. Little interest or pleasure in doing things: several days Feeling down, depressed, or hopeless: several days Feel stressed/tense/nervous/anxious/difficulty sleeping: very much Life stressors: recent of family or friend Life stressor details: 2020 lost family Do you think of yourself as: straight/heterosexual Gender Identity: female Meds Home Medications and Allergies Home Medications ?Medication ?Instructions ?Recorded ?Confirmed ?Type alprazolam 1 mg tablet 1 mg PO BID 06/10/23 08/21/23 History aspirin 81 mg tablet,delayed 81 mg PO DAILY 06/10/23 08/21/23 History release atorvastatin 80 mg tablet 80 mg PO DAILY 06/10/23 08/21/23 History buspirone 10 mg tablet 10 mg PO BID 06/10/23 08/21/23 History carvedilol 6.25 mg tablet 6.25 mg PO BID 06/10/23 08/21/23 History clopidogrel 75 mg tablet 75 mg PO DAILY 06/10/23 08/21/23 History dapagliflozin propanediol 10 mg 10 mg PO DAILY 06/10/23 08/21/23 History tablet (Farxiga) gabapentin 300 mg capsule 300 mg PO TID 06/10/23 08/21/23 History trazodone 50 mg tablet 50 mg PO DAILY 06/10/23 08/21/23 History levothyroxine 75 mcg tablet 75 mcg PO ACB #30 tabs 06/11/23 08/21/23 Rx albuterol sulfate 90 mcg/actuation 2 puff inhalation Q6H PRN 06/29/23 08/21/23 History aerosol inhaler shortness of breath or wheezing pantoprazole 40 mg tablet,delayed 40 mg PO DAILY 06/29/23 08/21/23 History release furosemide 40 mg tablet 40 mg PO QAM 07/23/23 08/21/23 History spironolactone 25 mg tablet 25 mg PO QAM 07/23/23 08/21/23 History ibuprofen 800 mg tablet (IBU) 800 mg PO Q8H PRN pain 08/21/23 08/21/23 History Allergies Allergy/AdvReac Type Severity Reaction Status Date / Time No Known Drug Allergies Allergy Verified 08/20/23 21:47 Exam Constitutional Vital Signs, click to edit/add: Last Vital Signs Temp 98.1 F 08/21/23 04:44 Pulse 81 08/21/23 04:31 Resp 18 08/21/23 04:31 BP 127/77 04/09/24 04:31 Pulse Ox 92 L 08/21/23 04:31 O2 Del Method Nasal Cannula 08/21/23 04:31 O2 Flow Rate 2 08/21/23 04:31 Documenting provider has reviewed patient's vital signs: yes Common normals: apparent distress (Mild conversational dyspnea) Chest Common normals: inspection of chest normal Respiratory Common normals: abnormal respiratory effort (Mild respiratory distress) and not clear to ascultation bilaterally Auscultation: rhonchi, wheezes and diminished lung sounds Cardio Common normals: regular rate, regular rhythm and no murmurs GI Common normals: Normal to inspection, nondistended, normoactive bowel sounds present Extremity Common normals: normal to inspection and full ROM Neuro Sensorium/orientation: awake, alert and oriented to person Results Labs Labs: Short CBC 08/20/23 08/21/23 Range/Units 23:28 04:25 WBC 11.1 H 8.8 (4.0-11.0) 10^3/uL Hgb 11.9 L 11.8 L (12.0-16.0) g/dL Hct 39.2 40.0 (36.0-48.0) % Plt Count 328 298 (150-450) 10^3/uL BMP 08/21/23 04:25 Sodium 138 Potassium 4.5 Chloride 100 Carbon Dioxide 29.4 BUN 15.0 Creatinine 1.01 Glucose 221 H Calcium 9.4 Liver Function 08/21/23 Range/Units 04:25 Total Bilirubin 0.4 (0.2-1.0) mg/dL AST 36 (15-37) U/L ALT 49 (14-59) U/L Alkaline Phosphatase 111 (46-116) U/L Albumin 3.4 (3.4-5.0) g/dL Assessment and Plan Assessment and Plan (1) Anxiety: (2) Hypoxemia: (3) Chest pain: (4) Acute gastroenteritis: Plan Uncontrolled hypertension, chest tightness and shortness of breath-acute onset of the shortness of breath-elevated troponin although trending down, consult to cardiology, check CTA of chest secondary to the acuteness of the event with the hypoxia = 85%. Currently stable on 2 L, may need that at discharge. Leukocytosis, respiratory distress, normally hypoxia due to acute exacerbation of COPD as outlined above as a complicating factor-steroids, antibiotics, aerosol treatments. May IPV she has tolerated these in the past Elevated troponin-this been chronic for her, she has not had a heart cath in quite some time however, may need that. Consult cardiology Generalized anxiety disorder-continue with current medications Iron deficiency anemia-monitor daily L Acute gastroenteritis-symptoms so far been improving, will try to check stool sample though. Inpatient status: See acute hypoxia, possible pulmonary embolism-checking CTA, consult to cardiology for elevated troponin, change patient to inpatient status. She is likely here 3 days.
[2023-08-21] MEDS: ALPRAZOLAM 1 MG TABLET PO ×2 (09:06→21:50)
[2023-08-21] MEDS: BUSPIRONE HCL 10 MG TABLET PO ×2 (09:06→21:50)
[2023-08-21] MEDS: ASPIRIN 81 MG TABLET.DR PO (09:06)
[2023-08-21] MEDS: ATORVASTATIN CALCIUM 40 MG TABLET 80 MG PO (09:06)
[2023-08-21] MEDS: OMEPRAZOLE 40 MG CAPSULE.DR PO (09:07)
[2023-08-21] MEDS: CLOPIDOGREL BISULFATE 75 MG TABLET PO (09:07)
[2023-08-21] MEDS: METHYLPREDNISOLONE SOD SUCC PF 125 MG/2 ML VIAL 60 MG IVP ×3 (09:07→20:33)
[2023-08-21] MEDS: FUROSEMIDE 40 MG TABLET PO (09:07)
[2023-08-21] MEDS: ENOXAPARIN SODIUM 40 MG/0.4 ML SYRINGE SUBQ (09:07)
[2023-08-21] MEDS: CANAGLIFLOZIN 100 MG TABLET 300 MG PO (09:07)
[2023-08-21] MEDS: CARVEDILOL 6.25 MG TABLET PO ×2 (09:07→21:50)
[2023-08-21] MEDS: SPIRONOLACTONE 25 MG TABLET PO (09:07)
[2023-08-21] MEDS: 0.9 % SODIUM CHLORIDE 250 ML 10 ML IV (11:05)
[2023-08-21] MEDS: CEFTRIAXONE 1,000 MG in 0.9 % SODIUM CHLORIDE 50 ML 100 MG IV (11:05)
[2023-08-21] MEDS: LEVOFLOXACIN IN DEXTROSE 5 % 750 MG/150 ML IV.SOLN 100 MG IV (12:10)
[2023-08-21] MEDS: ACETAMINOPHEN 500 MG TABLET 1000 MG PO (12:25)
[2023-08-21] MEDS: IBUPROFEN 400 MG TABLET 800 MG PO (12:25)
--- NOTE | 2023-08-21 13:34 | PM.CACN ---
History of Present Illness History of Present Illness Consult date: 08/21/23 Requesting physician: Charlie Richardson Consult reason: shortness of breath Chief complaint: diff breathing Narrative: 63 yo female with a past medical history including CAD, prior PCI/CONSUELO to LAD (10/2021), HTN, HFpEF, and severe bradycardia s/p PPM placement with recent ventricular lead revision. Patient presented with complaints of chest heaviness and shortness of breath. Cardiology was asked to see patient for elevated tropoinin, which appears to be chronic for patient. Of note: Bp on admission was 212/113. Patient was found to be transiently hypoxic, which has been a recurrent problem for patient. She is a chronic smoker. She was started on antibiotics for possible pneumonia. Patient states that she takes all of her medications, but she is not on anything for blood pressure at home. Records indicate that patient is on Carvedilol. Unclear of she is adherent to medication regimen. Today, patient states that she feels well. She denies any chest pain or shortness of breath. No lower extremity edema, orthopnea, or PND. Of note: patient had cardiac cath performed in 06/2023 which demonstrated widely patent coronary arteries with patent stent. Review of Systems ROS Status of ROS 10 or more systems reviewed and unremarkable except as noted in history and below [facility] Medical History (Updated 08/21/23 @ 13:49 by HIPOLITO GARCIA) Anxiety ?F41.9 - Anxiety disorder, unspecified (ICD-10) Acute kidney injury ?N17.9 - Acute kidney failure, unspecified (ICD-10) Acute anxiety ?F41.9 - Anxiety disorder, unspecified (ICD-10) Pacemaker ?Z95.0 - Presence of cardiac pacemaker (ICD-10) Iron deficiency anemia ?D50.9 - Iron deficiency anemia, unspecified (ICD-10) COPD (chronic obstructive pulmonary disease) ?J44.9 - Chronic obstructive pulmonary disease, unspecified (ICD-10) Hypoxia ?R09.02 - Hypoxemia (ICD-10) Dyspnea ?R06.00 - Dyspnea, unspecified (ICD-10) Elevated brain natriuretic peptide (BNP) level ?R79.89 - Other specified abnormal findings of blood chemistry (ICD-10) Hypertension ?I10 - Essential (primary) hypertension (ICD-10) Elevated troponin ?R79.89 - Other specified abnormal findings of blood chemistry (ICD-10) Acute dyspnea ?R06.00 - Dyspnea, unspecified (ICD-10) IBS (irritable bowel syndrome) ?K58.9 - Irritable bowel syndrome without diarrhea (ICD-10) Anxiety ?F41.9 - Anxiety disorder, unspecified (ICD-10) Heart attack ?I21.9 - Acute myocardial infarction, unspecified (ICD-10) Sciatic leg pain ?M54.30 - Sciatica, unspecified side (ICD-10) Herniated disc, cervical ?M50.20 - Other cervical disc displacement, unspecified cervical region (ICD-10) Surgical History History of appendectomy ?Z90.49 - Acquired absence of other specified parts of digestive tract (ICD-10) History of heart artery stent ?Z95.5 - Presence of coronary angioplasty implant and graft (ICD-10) Family History Mother Family history of CHF (congestive heart failure) Family history of hypertension Father Family history of CHF (congestive heart failure) Brother Family history of CHF (congestive heart failure) Other Family history of diabetes mellitus Family history of myocardial infarction Social History (Updated 07/29/23 @ 19:35 by Consuelo Dejesus RN) Within the past year, how often did you have a drink containing alcohol: monthly or less Smoking status: Current every day smoker Nicotine containing products detail: 1 pack/week Non-prescribed substance use: cannabis (any form) Non-prescribed substance use details: smokes marijuana, gummies Highest level of school completed/degree received: high school graduate Are you now , , , , never or living with a partner: In a typical week, how many times do you talk on the telephone with family, friends, or neighbors: once per week How often do you get together with friends or relatives: never How often do you attend alevism or pentecostal services: 4 or more times per year Do you belong to any clubs or organizations such as alevism groups unions, fraternal or athletic groups, or school groups: no Total score: 1 Score interpretation: A score of less than or equal to 1 indicates the most socially isolated. Little interest or pleasure in doing things: several days Feeling down, depressed, or hopeless: several days Feel stressed/tense/nervous/anxious/difficulty sleeping: very much Life stressors: recent of family or friend Life stressor details: 2020 lost family Do you think of yourself as: straight/heterosexual Gender Identity: female Meds Home Medications and Allergies Home Medications ?Medication ?Instructions ?Recorded ?Confirmed ?Type alprazolam 1 mg tablet 1 mg PO BID 06/10/23 08/21/23 History aspirin 81 mg tablet,delayed 81 mg PO DAILY 06/10/23 08/21/23 History release atorvastatin 80 mg tablet 80 mg PO DAILY 06/10/23 08/21/23 History buspirone 10 mg tablet 10 mg PO BID 06/10/23 08/21/23 History carvedilol 6.25 mg tablet 6.25 mg PO BID 06/10/23 08/21/23 History clopidogrel 75 mg tablet 75 mg PO DAILY 06/10/23 08/21/23 History dapagliflozin propanediol 10 mg 10 mg PO DAILY 06/10/23 08/21/23 History tablet (Farxiga) gabapentin 300 mg capsule 300 mg PO TID 06/10/23 08/21/23 History trazodone 50 mg tablet 50 mg PO DAILY 06/10/23 08/21/23 History levothyroxine 75 mcg tablet 75 mcg PO ACB #30 tabs 06/11/23 08/21/23 Rx albuterol sulfate 90 mcg/actuation 2 puff inhalation Q6H PRN 06/29/23 08/21/23 History aerosol inhaler shortness of breath or wheezing pantoprazole 40 mg tablet,delayed 40 mg PO DAILY 06/29/23 08/21/23 History release furosemide 40 mg tablet 40 mg PO QAM 07/23/23 08/21/23 History spironolactone 25 mg tablet 25 mg PO QAM 07/23/23 08/21/23 History ibuprofen 800 mg tablet (IBU) 800 mg PO Q8H PRN pain 08/21/23 08/21/23 History Allergies Allergy/AdvReac Type Severity Reaction Status Date / Time No Known Drug Allergies Allergy Verified 08/20/23 21:47 Exam Constitutional Vital Signs, click to edit/add: Last Vital Signs Temp 97.8 F 08/21/23 12:16 Pulse 87 08/21/23 12:16 Resp 18 08/21/23 12:16 BP 99/62 08/21/23 12:16 Pulse Ox 93 L 08/21/23 12:16 O2 Del Method Nasal Cannula 08/21/23 12:16 O2 Flow Rate 3 08/21/23 12:16 Common normals: no apparent distress and oriented x3 HENMT Common normals: normocephalic and head/scalp atraumatic Eye Common normals: PERRL and EOMs intact bilaterally Neck & C-Spine Common normals: full ROM Respiratory Common normals: normal respiratory effort, no retractions and no use of accessory muscles Effort & inspection: symmetric chest movement Cardio Common normals: no JVD, regular rate, regular rhythm, S1 normal heart sound, S2 normal heart sound, no gallops and no murmurs GI Common normals: Normal to inspection, nondistended, normoactive bowel sounds present and soft to palpation Extremity Common normals: no clubbing, cyanosis or edema Results Labs and Meds Lab results: Cardiac Enzymes 08/21/23 Range/Units 04:25 AST 36 (15-37) U/L CBC 08/20/23 08/21/23 Range/Units 23:28 04:25 WBC 11.1 H 8.8 (4.0-11.0) 10^3/uL RBC 4.30 4.38 (4.20-5.40) 10^6/uL Hgb 11.9 L 11.8 L (12.0-16.0) g/dL Hct 39.2 40.0 (36.0-48.0) % Plt Count 328 298 (150-450) 10^3/uL Neut # (Auto) 7.3 H 7.5 H (1.4-6.5) 10^3/uL Lymph # (Auto) 2.0 1.0 L (1.2-3.8) 10^3/uL [place] # (Auto) 0.9 H 0.1 L (0.3-0.8) 10^3/uL Eos # (Auto) 0.8 H 0.2 (0.0-0.7) 10^3/uL Baso # (Auto) 0.0 0.0 (0.0-0.1) 10^3/uL Comprehensive Metabolic Panel 08/21/23 Range/Units 04:25 Sodium 138 (136-145) mmol/L Potassium 4.5 (3.5-5.1) mmol/L Chloride 100 (98-107) mmol/L Carbon Dioxide 29.4 (21.0-32.0) mmol/L BUN 15.0 (7.0-18.0) mg/dL Creatinine 1.01 (0.55-1.02) mg/dL Glucose 221 H (74-106) mg/dL Calcium 9.4 (8.5-10.1) mg/dL AST 36 (15-37) U/L ALT 49 (14-59) U/L Alkaline Phosphatase 111 (46-116) U/L Total Protein 7.2 (6.4-8.2) g/dL Albumin 3.4 (3.4-5.0) g/dL Intake and Output 08/20/23 08/21/23 08/21/23 23:59 07:59 15:59 Intake Total 570 / 570 Balance 570 / 570 Intake: Oral 520 / 520 IV 50 / 50 Ceftriaxone 1,000 mg In 0.9 % 50 / 50 Sodium Chloride 50 ml @ 100 mls /hr IV Q24H [facility] Rx#:[id number] Other: # Unmeasured Voids 1 Weight 68.039 kg 80.3 kg Assessment and Plan Assessment and Plan (1) Anxiety: (2) Hypoxemia: (3) Chest pain: (4) Acute gastroenteritis: (5) Coronary artery disease: (6) Elevated troponin: (7) Pneumonia: (8) Hypertensive emergency: Plan Patient presenting with chest pressure and shortness of breath. She has numerous similar admissions. Cardiology consulted for elevated troponin This is likely due to hypertensive emergency. She had patent coronary arteries on coronary angiography in 06/2023. Her troponin is chronically elevated. High sensitivity peaked at 156 and down trended. She is chest pain free at this time It is unclear if patient is compliant with medications Recommend optimial blood pressure control Continue GDMT for heart failure Obtain echo to rule out new drop in EF or regional wall motion abnormality Treat underlying pneumonia with antibiotics Continue Aspirin, Plavix, Statin for CAD Recommend interrogating pacemaker when able Recommend pulmonology consultation for hypoxia/COPD eval Thank you for allowing us to participate in the care of your patient. Hipolito Garcia MD [facility]
--- NOTE | 2023-08-21 14:18 | CT_ITS ---
[address] [address] Patient Name: EMERY JETT MRN: [id number] date: 1960 Sex: F Assigned Patient Location: [place] Current Patient Location: [place] Accession/Order Number: [id number] Exam Date: 08/21/2023 14:08 Report Date: 08/21/2023 14:56 At the request of: ЕКАТЕРИНА ROBERT Procedure: CT angio chest EXAMINATION: CT angio chest HISTORY: acute hypoxia , acute cough, dyspnea COMPARISON: No relevant comparison available. TECHNIQUE: Multi-planar CT images were created with IV contrast. Axial, Coronal, and Sagittal images. Dose reduction techniques were achieved by using automated exposure control and/or adjustment of mA and/or kV according to patient size and/or use of iterative reconstruction technique. FINDINGS: LUNGS: No visible pulmonary disease. PLEURA: No mass, effusion, or pneumothorax. VASCULATURE: Normal postcontrast opacification of the central pulmonary arterial tree with no filling defects ALY: No mass or adenopathy. MEDIASTINUM: Left pacemaker CARDIAC: No enlargement or pericardial effusion. Coronary atherosclerosis with stents AORTA: No aneurysm or dissection. CHEST WALL: No mass or axillary adenopathy. BONES: No bone lesion or fracture. LIMITED ABDOMEN: No suspicious findings. Limited images of the upper abdomen. OTHER: Negative. CT/CT angio chest IMPRESSION: No central pulmonary thromboembolic disease Electronically authenticated by: CHANTEL SINGLETON Date: 08/21/2023 14:56
--- NOTE | 2023-08-21 14:27 | SWNOTE1 ---
SW stopped in to check on pt to discuss any discharge needs. Pt voiced after the eclipse, she felt off and then became anxious and came to hospital. Pt is on oxygen while here, no oxygen at home. Pt voiced she was at [facility] a few days ago and felt so short of breath and could not make it home, someone offered her a ride home and assisted her with getting her groceries in to the home. SW and pt spoke about medicaid and food stamps. She stated they keep requesting more and more information in regards to her medical bills that she has to pay monthly and other bills. Pt did voice frustrations with this, but knows it has to get done. SW and pt spoke about her mom's car and that if she had a car it would be easier to get groceries, etc. SW did suggest maybe selling her mom's car instead of trying to fix it. She voiced she may look in to this. At this time pt denies any other discharge needs. SW to follow as needed.
--- NOTE | 2023-08-21 15:59 | SWNOTE1 ---
Important Message from Medicare reviewed and discussed with patient. Pt. verbalized understanding and signed the form. Original given to patient and copy placed in patient?s chart.
[2023-08-21] MEDS: TRAZODONE HCL 50 MG TABLET PO (21:50)
[2023-08-22] VITALS (24 sets, daily range): BP systolic 106–128; BP diastolic 62–81; PULSE 79–97; TEMP 36.4–36.8; O2SAT 91–98
[2023-08-22] MEDS: METHYLPREDNISOLONE SOD SUCC PF 125 MG/2 ML VIAL 60 MG IVP (03:49)
[2023-08-22] MEDS: IPRATROPIUM/ALBUTEROL SULFATE 3 ML AMPUL.NEB IH ×5 (03:56→19:22)
[2023-08-22 04:51] LABS: Basophils Percent Auto 0.1 % (0.2-2.0); Hematocrit 34.4 % (36.0-48.0); Hemoglobin 10.8 g/dL (12.0-16.0); Immature Granulocytes Abs Auto 0.05 10^3/uL (0.00-0.03); Immature Granulocytes Pct Auto 0.4 % (0.0-0.5); Lymphocytes Absolute Auto 1.1 10^3/uL (1.2-3.8); Mean Corpuscular HGB Conc 31.4 g/dL (29.9-35.2); Mean Corpuscular Hemoglobin 27.7 pg (26.7-34.0); Mean Corpuscular Volume 88.2 fL (81.0-99.0); Mean Platelet Volume 10.3 fL (9.5-13.5); Monocytes Absolute Auto 0.6 10^3/uL (0.3-0.8); Monocytes Percent Auto 4.1 % (1.7-12.0); Neutrophils Absolute Auto 12.2 10^3/uL (1.4-6.5); Neutrophils Percent Auto 87.4 % (43.0-75.0); Platelet Count 321 10^3/uL (150-450); Red Cell Distribution Width 15.8 % (11.0-15.0); White Blood Count 13.9 10^3/uL (4.0-11.0)
[2023-08-22 05:08] LABS: Alanine Aminotransferase 42 U/L (14-59); Albumin Globulin Ratio 0.9; Albumin Level 3.3 g/dL (3.4-5.0); Alkaline Phosphatase 93 U/L (46-116); Aspartate Amino Transferase 27 U/L (15-37); BUN Creatinine Ratio 18.7; Bilirubin Total 0.2 mg/dL (0.2-1.0); Calcium 9.3 mg/dL (8.5-10.1); Carbon Dioxide 31.7 mmol/L (21.0-32.0); Chloride 98 mmol/L (98-107); Estimated GFR (African America 47 (>=60); Estimated GFR (Non-African Ame 38 (>=60); Globulin 3.6 g/dL; Glucose 322 mg/dL (74-106); Potassium 3.7 mmol/L (3.5-5.1); Sodium 138 mmol/L (136-145); Total Protein 6.9 g/dL (6.4-8.2)
[2023-08-22] MEDS: LEVOTHYROXINE SODIUM 75 MCG TABLET PO (05:47)
[2023-08-22] MEDS: GABAPENTIN 300 MG CAPSULE PO ×3 (05:47→21:18)
[2023-08-22] MEDS: BENZONATATE 100 MG CAPSULE 200 MG PO ×3 (05:47→21:18)
--- NOTE | 2023-08-22 07:22 | CA_ITS ---
Patient Name: EMERY JETT MR#: [id number] : 1960 Exam Date: 08/22/2023 Ordering Doctor: DR Charlie Richardson . ECHOCARDIOGRAM REPORT PROCEDURE: CA ECHO LIMITED INDICATIONS: Assess wall motion, elevated TROP, pacemaker, COPD, [place], cardiac stent, hypertension COMPARISON: None. DESCRIPTION: Limited ECHOCARDIOGRAM Real-time transthoracic echocardiography with 2D and M-mode performed. QUALITY: Technical quality was good. 57 , 177#, BSA 1.71, BP 117/75 LEFT VENTRICLE: Normal chamber size. Mild concentric left ventricular hypertrophy. Systolic function is hyperdynamic. LV EF: Hyperdynamic left ventricular ejection fraction, (75%). DIASTOLIC: ATRIAL SEPTUM: LEFT ATRIUM: Moderate dilatation. RIGHT ATRIUM: Normal chamber size. Pacer wire seen. RIGHT VENTRICLE: Normal chamber size. Normal systolic function. Pacer wire seen. TRICUSPID VALVE: Normal mobility and thickness. MITRAL VALVE: Normal mobility and thickness. AORTIC VALVE: Normal trileaflet appearance. No visible sclerosis. Normal leaflet mobility. AORTIC ROOT: Normal diameter and appearance. PULMONIC VALVE: Normal thickness and mobility. PERICARDIUM: No evidence of pericardial effusion. IVC: Collapses with inspirations. IVC is normal in size. PLEURA: CONCLUSION: 1. Mild concentric left ventricular hypertrophy with hyperdynamic systolic function. Estimated LVEF is 75%. 2. Normal right ventricular size and systolic function. 3. Moderate left atrial dilatation. 4. No pericardial effusion. 5. Limited study performed with no Doppler interrogation as requested. Adult Echocardiography Procedure Report Left Ventricle LVEDD (3.7 - 5.6 cm): 4.96 cm LVESD (2.2 - 4.0 cm): 2.33 cm LVIVS thickness (0.6 - 1.2 cm): 1.09 cm LVPW thickness (0.5 - 1.0 cm): 1.15 cm LVOT Diameter 1.85 cm Left Atrium LA Volume Index (2D A2C): 48.87 ml/m2 Left Atrium Systolic Dimension: 3.81 cm Mitral Valve Right Ventricle Aorta AO Root Diam: 2.83 cm Aortic Valve Tricuspid Valve Pulmonic Valve Right Atrium Right Atrium Systolic Pressure: 37.03 ml, 37.03 ml Dictated by: Merritt Guerrero M.D. on 08/22/2023 at 10:20 Approved by: Merritt Guerrero M.D. on 08/22/2023 at 10:23
[2023-08-22 07:48] LABS: Troponin I High Sensitivity 86.6 pg/mL (4.0-51.3)
--- NOTE | 2023-08-22 07:48 | P.PN_ITS ---
Progress Note: Subjective Subjective Interval history: Patient with a significant shortness of breath episode last night. This morning she had the oxygen off and at rest her oxygen saturation is staying above 90%. Exam Constitutional Vital Signs, click to edit/add: Last Vital Signs Temp 97.7 F 08/22/23 03:50 Pulse 80 08/22/23 06:57 Resp 18 08/22/23 03:55 BP 117/75 08/22/23 03:50 Pulse Ox 92 L 08/22/23 03:55 O2 Del Method Room Air 08/22/23 03:55 O2 Flow Rate 2 08/21/23 23:36 Documenting provider has reviewed patient's vital signs: yes Common normals: apparent distress (Mild conversational dyspnea) Chest Common normals: inspection of chest normal Respiratory Common normals: normal respiratory effort; not clear to ascultation bilaterally (Improved) Auscultation: rhonchi (Improved), wheezes (Resolved but just had breathing treatment) and diminished lung sounds Cardio Common normals: regular rate, regular rhythm and no murmurs GI Common normals: Normal to inspection, nondistended, normoactive bowel sounds present Extremity Common normals: normal to inspection and full ROM Neuro Sensorium/orientation: awake, alert and oriented to person Progress Note: Objective Labs Labs: Short CBC 08/22/23 Range/Units 04:00 WBC 13.9 H (4.0-11.0) 10^3/uL Hgb 10.8 L (12.0-16.0) g/dL Hct 34.4 L (36.0-48.0) % Plt Count 321 (150-450) 10^3/uL BMP 08/22/23 04:00 Sodium 138 Potassium 3.7 Chloride 98 Carbon Dioxide 31.7 BUN 26.0 H Creatinine 1.39 H Glucose 322 H Calcium 9.3 Liver Function 08/22/23 Range/Units 04:00 Total Bilirubin 0.2 (0.2-1.0) mg/dL AST 27 (15-37) U/L ALT 42 (14-59) U/L Alkaline Phosphatase 93 (46-116) U/L Albumin 3.3 L (3.4-5.0) g/dL Progress Note: A&P Assessment and Plan (1) Anxiety: (2) Hypoxemia: (3) Chest pain: (4) Acute gastroenteritis: (5) Coronary artery disease: (6) Elevated troponin: (7) Pneumonia: (8) Hypertensive emergency: Plan Uncontrolled hypertension, chest tightness and shortness of breath-acute onset of the shortness of breath-elevated troponin although trending down, consult to cardiology, CTA was negative for PE. Check on echocardiogram as recommended by cardiology. Troponin pending this morning Leukocytosis, respiratory distress, hypoxia due to acute exacerbation of COPD as outlined above as a complicating factor-wean steroids today, continue with antibiotics and aerosol treatments. Is improved but not back to baseline yet. Hopeful for improvement enough by tomorrow possible discharge tomorrow Elevated [id number] with his later today, check on troponin and echocardiogram Generalized anxiety disorder-continue with current medications Iron deficiency anemia-monitor daily Acute gastroenteritis-symptoms still persisting today with the diarrhea, check on stool sample results Inpatient status: Patient with acute exacerbation of COPD. Pending cardiac workup. Patient not back to baseline, likely 1 more hospitalist day. Medically necessary treatment spanning 2 midnights ?
[2023-08-22] MEDS: ALPRAZOLAM 1 MG TABLET PO ×2 (09:29→20:27)
[2023-08-22] MEDS: SPIRONOLACTONE 25 MG TABLET PO (09:29)
[2023-08-22] MEDS: GUAIFENESIN 200 MG/DEXTROMETHORPHAN 20 MG 10 ML UNIT DOSE CUP PO ×2 (09:29→17:28)
[2023-08-22] MEDS: CARVEDILOL 6.25 MG TABLET PO ×2 (09:29→20:28)
[2023-08-22] MEDS: PREDNISONE 20 MG TABLET 30 MG PO (09:29)
[2023-08-22] MEDS: OMEPRAZOLE 40 MG CAPSULE.DR PO (09:29)
[2023-08-22] MEDS: ASPIRIN 81 MG TABLET.DR PO (09:29)
[2023-08-22] MEDS: CLOPIDOGREL BISULFATE 75 MG TABLET PO (09:29)
[2023-08-22] MEDS: BUSPIRONE HCL 10 MG TABLET PO ×2 (09:30→20:27)
[2023-08-22] MEDS: FUROSEMIDE 40 MG TABLET PO (09:30)
[2023-08-22] MEDS: ENOXAPARIN SODIUM 40 MG/0.4 ML SYRINGE SUBQ (09:30)
[2023-08-22] MEDS: 0.9 % SODIUM CHLORIDE 250 ML 10 ML IV (11:25)
[2023-08-22] MEDS: ATORVASTATIN CALCIUM 40 MG TABLET 80 MG PO (11:25)
[2023-08-22] MEDS: CEFTRIAXONE 1,000 MG in 0.9 % SODIUM CHLORIDE 50 ML 100 MG IV (11:26)
--- NOTE | 2023-08-22 12:11 | PT.DAILY ---
Physical Therapy Daily Note PT Daily Note/Assess Start: 08/22/23 12:06 Freq: Status: Active Protocol: Document 08/22/23 12:06 RAQUEL (Rec: 08/22/23 12:10 RAQUEL [id number]) Physical Therapy Daily Note/Assessment Time In/Time Out Time In 11:43 Time Out 12:00 Pain In Pain N/A Pain Out Pain N/A Subjective Subjective Pt supine upon arrival. Agrees to PT. Slightly impulsive - forgets she is attached to IV. Therapeutic Activity Time Therapeutic Activity Minutes (minutes) 10 Therapeutic Activity Treatment Bed Mobility Ability Modified Independent Chair Transfer Ability Modified Independent Therapeutic Activity Comments Supine>sit Patrick with assist for IV lines. Sit>stand Patrick for IV line. Pt amb into restroom without AD but assistance with IV pole. Able to perform toilet transfer, pericare and hand hygiene without assistance. pt amb 100 ' without AD to therapy room to complete stair training. Pt amb without AD but WOOD SASH AND [employer]AME [employer]PENTER pushes IV pole for her. Ascends and descend 4 steps 2x with bilat UE support. Pt amb 100' back to room with 1x lateral LOB but self corrected with handrail on wall. Pt returned to supine Patrick with assist for IV lines. remains supine with call light in reach and needs met. Total Physical Therapy Time Total Therapy Minutes 10 Summary Daily Note Summary Good tolerance with session- safe with stair training with bilat UE support. 1x LOB while turning to have conversation but was able to self correct using handrail on wall. Could benefit from OP PT to regain strength, endurance, and balance to return to PLOF.
[2023-08-22 12:16] LABS: Adenovirus F 40/41 NOT DETECTED (NOT DETECTE); Astrovirus NOT DETECTED (NOT DETECTE); Cryptosporidium NOT DETECTED (NOT DETECTE); Cyclospora cayetanensis NOT DETECTED (NOT DETECTE); Entamoeba histolytica NOT DETECTED (NOT DETECTE); Giardia lamblia NOT DETECTED (NOT DETECTE); Norovirus GI/GII NOT DETECTED (NOT DETECTE); Rotavirus A NOT DETECTED (NOT DETECTE); Sapovirus NOT DETECTED (NOT DETECTE); Shigella/Enteroinvasive E.coli NOT DETECTED (NOT DETECTE)
[2023-08-22 12:17] LABS: Campylobacter NOT DETECTED (NOT DETECTE); Enteroaggregative E.coli NOT DETECTED (NOT DETECTE); Enteropathogenic E.coli NOT DETECTED (NOT DETECTE); Enterotoxigenic E. coli NOT DETECTED (NOT DETECTE); Plesiomonas shigelloides NOT DETECTED (NOT DETECTE); Salmonella NOT DETECTED (NOT DETECTE); Shiga-like toxin-producing E.C NOT DETECTED (NOT DETECTE); Vibrio NOT DETECTED (NOT DETECTE); Vibrio cholerae NOT DETECTED (NOT DETECTE); Yersinia enterocolitica NOT DETECTED (NOT DETECTE)
[2023-08-22] MEDS: TRAZODONE HCL 50 MG TABLET PO (21:18)
--- NOTE | 2023-08-22 23:08 | RESP.RT ---
Pt refused HHN. Pt stated they make her jittery and she does not want to take them anymore.
[2023-08-23] VITALS (13 sets, daily range): BP systolic 119–152; BP diastolic 74–90; PULSE 77–88; TEMP 36.6–36.7; O2SAT 92–93; BMI 27.7
[2023-08-23 05:01] LABS: Basophils Percent Auto 0.1 % (0.2-2.0); Hematocrit 33.4 % (36.0-48.0); Hemoglobin 10.5 g/dL (12.0-16.0); Immature Granulocytes Abs Auto 0.05 10^3/uL (0.00-0.03); Immature Granulocytes Pct Auto 0.4 % (0.0-0.5); Lymphocytes Absolute Auto 2.2 10^3/uL (1.2-3.8); Lymphocytes Percent Auto 17.5 % (20.5-60.0); Mean Corpuscular HGB Conc 31.4 g/dL (29.9-35.2); Mean Corpuscular Hemoglobin 27.4 pg (26.7-34.0); Mean Corpuscular Volume 87.2 fL (81.0-99.0); Monocytes Percent Auto 8.2 % (1.7-12.0); Neutrophils Absolute Auto 9.3 10^3/uL (1.4-6.5); Neutrophils Percent Auto 73.8 % (43.0-75.0); Platelet Count 325 10^3/uL (150-450); Red Blood Count 3.83 10^6/uL (4.20-5.40); Red Cell Distribution Width 16.3 % (11.0-15.0); White Blood Count 12.6 10^3/uL (4.0-11.0)
[2023-08-23] MEDS: BENZONATATE 100 MG CAPSULE 200 MG PO (05:18)
[2023-08-23] MEDS: GABAPENTIN 300 MG CAPSULE PO (05:18)
[2023-08-23 05:36] LABS: Alanine Aminotransferase 36 U/L (14-59); Albumin Level 3.2 g/dL (3.4-5.0); Alkaline Phosphatase 77 U/L (46-116); Anion Gap 11.6; Aspartate Amino Transferase 18 U/L (15-37); Bilirubin Total 0.3 mg/dL (0.2-1.0); Calcium 9.3 mg/dL (8.5-10.1); Carbon Dioxide 31.9 mmol/L (21.0-32.0); Chloride 100 mmol/L (98-107); Estimated GFR (African America >60 (>=60); Estimated GFR (Non-African Ame >60 (>=60); Globulin 3.1 g/dL; Glucose 170 mg/dL (74-106); Potassium 3.5 mmol/L (3.5-5.1); Sodium 140 mmol/L (136-145); Total Protein 6.3 g/dL (6.4-8.2)
[2023-08-23] MEDS: LEVOTHYROXINE SODIUM 75 MCG TABLET PO (06:09)
--- NOTE | 2023-08-23 06:20 | PC.NURSE ---
Patient called out saying 10-15 minutes prior she felt a sharp pain in her chest. No other symptoms present. BP checked and notified
--- NOTE | 2023-08-23 06:46 | ECG_ITS ---
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
--- NOTE | 2023-08-23 06:48 | PC.NURSE ---
Patient called out sttating the sharp pain is back in her chest and now she feels squeezing in her chest. BP 152/[address] notified at this time
[2023-08-23] MEDS: NITROGLYCERIN 0.4 MG BOTTLE 0.400000000000000022 MG SL (06:53)
--- NOTE | 2023-08-23 08:21 | P.DS_ITS ---
DS: Providers Provider Date of admission: 08/21/23 12:23 Primary care physician: Charlie Richardson MD Consults: 08/21/23 07:48 Consult to Cardiology Routine Reason for consultation: elevated troponin consideration for heart cath Has provider been notified: No 08/21/23 07:50 Consult to Pharmacy Routine Consulting Provider: Reason for consultation: Please Edmond me when Med Rec is Updated Has provider been notified: No Occupational Therapy Eval and Treat Routine Reason for consultation: Only if needed for Rehab Has provider been notified: No Physical Therapy Eval and Treat Routine Reason for consultation: Eval and Treat Has provider been notified: No 08/21/23 07:51 Consult to PICC Line RN ONCE Consulting Provider: Charlie Richardson Reason for consultation: PRN: if needed for IV access Has provider been notified: No 08/23/23 08:09 Consult to Cardiology Routine Reason for consultation: please follow up - Chest pain relieved by Sl nitro DS: Diagnosis Discharge Diagnosis (1) Anxiety: (2) Hypoxemia: (3) Chest pain: (4) Acute gastroenteritis: (5) Coronary artery disease: (6) Elevated troponin: (7) Pneumonia: (8) Hypertensive emergency: Plan Uncontrolled hypertension, chest tightness and shortness of breath-acute onset of the shortness of breath-elevated troponin Leukocytosis, respiratory distress, hypoxia due to acute exacerbation of COPD as outlined above as a complicating factor Elevated troponin- Generalized anxiety disorder Iron deficiency anemia Acute gastroenteritis Inpatient status: Patient with acute exacerbation of COPD. Pending cardiac workup. Patient not back to baseline, likely 1 more hospitalist day. Medically necessary treatment spanning 2 midnights DS: Summary Hospital Course Hospital Course: Patient was evaluated in the emergency with gastroenteritis symptoms. But while there had acute onset of shortness of breath and acute hypoxia with O2 saturations of less than 88%. Patient was admitted with elevated troponin although this are chronic for her. They were higher than her previous. They have trended down throughout the hospital stay. She was felt to have an acute exacerbation of COPD, placed on steroids and antibiotics and aerosol treatments with improvement in her shortness of breath and hypoxia. She is been off supplemental oxygen for over 12 hours now, she did have an episode of chest pain relieved by 1 sublingual nitroglycerin. Start patient on Imdur. Reconsult to cardiology. If she has no further chest pain would be considered to stable angina. And cardiology okay with discharge we will discharge patient home in improving condition. Medications see list. Follow-up with me tomorrow or Sunday. Follow-up with cardiology as already planned Time Spent with Patient Time attestation: Total time spent providing and/or coordinating discharge services: Time spent: greater than 30 minutes Exam Constitutional Vital Signs, click to edit/add: Last Vital Signs Temp 98.1 F 08/23/23 07:55 Pulse 80 08/23/23 08:00 Resp 18 08/23/23 07:55 BP 148/84 H 08/23/23 07:55 Pulse Ox 92 L 08/23/23 07:55 O2 Del Method Room Air 08/23/23 07:55 O2 Flow Rate 2 08/21/23 23:36 Documenting provider has reviewed patient's vital signs: yes Common normals: apparent distress (Mild conversational dyspnea) Chest Common normals: inspection of chest normal Respiratory Common normals: normal respiratory effort and clear to auscultation bilaterally (Improved) Auscultation: diminished lung sounds; no rhonchi (Improved) and no wheezes (Resolved but just had breathing treatment) Cardio Common normals: regular rate, regular rhythm and no murmurs GI Common normals: Normal to inspection, nondistended, normoactive bowel sounds present Extremity Common normals: normal to inspection and full ROM Neuro Sensorium/orientation: awake, alert and oriented to person DS: Data Data Completed and Pending Labs on day of discharge: Labs from last 24 hours 08/23/23 08/22/23 04:00 11:30 WBC 12.6 H RBC 3.83 L Hgb 10.5 L Hct 33.4 L MCV 87.2 MCH 27.4 MCHC 31.4 RDW 16.3 H Plt Count 325 MPV 10.0 Neut % (Auto) 73.8 Lymph % (Auto) 17.5 L [place] % (Auto) 8.2 Eos % (Auto) 0.0 L Baso % (Auto) 0.1 L Neut # (Auto) 9.3 H Lymph # (Auto) 2.2 [place] # (Auto) 1.0 H Eos # (Auto) 0.0 Baso # (Auto) 0.0 Abs Immat Gran (auto) 0.05 H Imm/Tot Granulo (auto) 0.4 Sodium 140 Potassium 3.5 Chloride 100 Carbon Dioxide 31.9 Anion Gap 11.6 BUN 30.0 H Creatinine 0.91 Est GFR ( Amer) >60 Est GFR (Non-Af Amer) >60 BUN/Creatinine Ratio 33.0 Glucose 170 H Calcium 9.3 Total Bilirubin 0.3 AST 18 ALT 36 Alkaline Phosphatase 77 Troponin I High Sens 78.0 H* Total Protein 6.3 L Albumin 3.2 L Globulin 3.1 Albumin/Globulin Ratio 1.0 Stl C. cayetanensis PCR Not detected Stool Rotavirus (PCR) Not detected Stool Adenovirus (PCR) Not detected Stool Astrovirus (PCR) Not detected Stool Campylobacter PCR Not detected Stool Cryptosporidium PCR Not detected St Sh/Enteroin Ecoli PCR Not detected Stl Enterotoxigenic E PCR Not detected Stool EPEC (PCR) Not detected Stl E. histolytica PCR Not detected Stool Giardia Lamblia PCR Not detected Stl P. shigelloides PCR Not detected Stool Salmonella PCR Not detected Stool Sapovirus (PCR) Not detected Stl Shiga-like Tx [address].enterocolitica PCR Not detected Stl Vibrio cholerae PCR Not detected Stl Enteroaggr Ecoli PCR Not detected Stl Norovirus GI/GII PCR Not detected Specimen Source Stool C. difficile Toxin A&B Not detected Vibrio Culture Not detected Discharge Plan Discharge Disposition: Home, Self-Care Discharge Medications: New prednisone 10 mg tablet 30 mg PO DAILY Qty: 20 0RF Rx Instructions: 3/day for 3 days, 2/day for 3 days, 1/day for 3 days, 1/2 /day for 4 days levofloxacin 500 mg tablet 500 mg PO DAILY 7 Days Qty: 7 0RF isosorbide mononitrate 30 mg Tablet Extended Release 24 Hr 30 mg PO QD Qty: 30 11RF carvedilol [Coreg] 12.5 mg tablet 12.5 mg PO BID Qty: 60 11RF Rx Instructions: must administer with a meal/food Continued pantoprazole 40 mg tablet,delayed release (DR/EC) 40 mg PO DAILY Patient Comments: pt is out of med albuterol sulfate 90 mcg/actuation HFA aerosol inhaler 2 puff INHALATION Q6H PRN (Reason: shortness of breath or wheezing) furosemide 40 mg tablet 40 mg PO QAM spironolactone 25 mg tablet 25 mg PO QAM ibuprofen [IBU] 800 mg tablet 800 mg PO Q8H PRN (Reason: pain) atorvastatin 80 mg tablet 80 mg PO DAILY alprazolam 1 mg tablet 1 mg PO BID clopidogrel 75 mg tablet 75 mg PO DAILY aspirin 81 mg tablet,delayed release (DR/EC) 81 mg PO DAILY buspirone 10 mg tablet 10 mg PO BID gabapentin 300 mg capsule 300 mg PO TID dapagliflozin propanediol [Farxiga] 10 mg tablet 10 mg PO DAILY trazodone 50 mg tablet 50 mg PO DAILY levothyroxine 75 mcg Tablet 75 mcg PO ACB Qty: 30 11RF Discontinued carvedilol 6.25 mg tablet 6.25 mg PO BID Print Language: Turkish Forms: Portal Instructions Follow Up Appointments: August 27 @ 9:15am with Dr. Richardson [phone]
[2023-08-23] MEDS: ALPRAZOLAM 1 MG TABLET PO (09:39)
[2023-08-23] MEDS: ATORVASTATIN CALCIUM 40 MG TABLET 80 MG PO (09:39)
[2023-08-23] MEDS: PREDNISONE 20 MG TABLET 30 MG PO (09:39)
[2023-08-23] MEDS: ISOSORBIDE MONONITRATE 30 MG TAB.ER.24H PO (09:40)
[2023-08-23] MEDS: OMEPRAZOLE 40 MG CAPSULE.DR PO (09:40)
[2023-08-23] MEDS: CLOPIDOGREL BISULFATE 75 MG TABLET PO (09:40)
[2023-08-23] MEDS: ASPIRIN 81 MG TABLET.DR PO (09:40)
[2023-08-23] MEDS: CARVEDILOL 12.5 MG TABLET PO (09:40)
[2023-08-23] MEDS: SPIRONOLACTONE 25 MG TABLET PO (09:40)
[2023-08-23] MEDS: FUROSEMIDE 40 MG TABLET PO (09:40)
[2023-08-23] MEDS: BUSPIRONE HCL 10 MG TABLET PO (09:40)
--- NOTE | 2023-08-23 11:35 | SWNOTE1 ---
Pt is being discharged today. SW set up trips for 1:15-1:45. SW notified nursing and patient.
--- NOTE | 2023-08-23 14:39 | SWNOTE1 ---
SW did speak with pt again about going to an assisted living facility. Pt voices she does not want to. She voiced she likes having her own home and freedom to do what she wants. At this time pt does not want any resources in regards to counseling. She stated she has done it before and she does not find it beneficial.
--- NOTE | 2023-08-24 14:38 | CM.DCFOLLOWU ---
Person spoke with: Vivian Vann How are you feeling? Doing really good. Walked to store and back and didn't get out of breath. How is your pain? None Did you understand your discharge instructions? yes Do you have any questions about your discharge instructions? no Were you given any prescriptions at discharge? yes Were you able to get your prescriptions filled? yes Do you understand how to take your medications as ordered? yes Do you have any questions about your follow up appointment and do you plan to keep your follow up appointment? Saw Dr. Richardson today. Is there anything else that you would like to discuss? no Questions/Comments/Concerns/Other: none
== END 2023-08-23 13:17 | disposition home or self-care (01) | DRG 191 ==
LOC: ER 08-21 03:44 → MS 08-21 04:05
PROVIDERS: Nurse Practitioner Acute Care; Admitting Provider Family Medicine; Emergency Provider Internal Medicine; PCP Family Medicine; Visit Provider Family Medicine
DX: J44.1 Chronic obstructive pulmonary disease with (acute) exacerbation (principal); I16.1 Hypertensive emergency; R06.03 Acute respiratory distress; R79.89 Other specified abnormal findings of blood chemistry; F41.1 Generalized anxiety disorder; K52.9 Noninfective gastroenteritis and colitis, unspecified; D50.9 Iron deficiency anemia, unspecified; I25.10 Atherosclerotic heart disease of native coronary artery without angina pectoris; F17.210 Nicotine dependence, cigarettes, uncomplicated; R07.9 Chest pain, unspecified; F41.9 Anxiety disorder, unspecified; F12.90 Cannabis use, unspecified, uncomplicated; R73.9 Hyperglycemia, unspecified; T38.0X5A Adverse effect of glucocorticoids and synthetic analogues, initial encounter; Z95.0 Presence of cardiac pacemaker; Z79.890 Hormone replacement therapy; Z79.899 Other long term (current) drug therapy; Z79.82 Long term (current) use of aspirin; I25.2 Old myocardial infarction; Z90.49 Acquired absence of other specified parts of digestive tract; Z95.5 Presence of coronary angioplasty implant and graft
CPT/HCPCS: 36410; 36415; 36592; 71045; 71275; 80053; 83880; 84484; 85025; 87070; 87507; 93005; 93308; 94640; 94667; 94668; 94761; 96365; 96366; 96368; 96372; 96375; 96376; 97161; 97165; 97530; 99285; C1887; J2919; Q9967

== ENCOUNTER 2023-10-11 08:37 | Observation (INO) | payer OTHER, SELFPAY ==
[2023-10-11] VITALS (43 sets, daily range): BP systolic 108–168; BP diastolic 52–95; PULSE 77–97; TEMP 36.6–36.8; O2SAT 90–99; BMI 23.7; BMI 27.2
--- NOTE | 2023-10-11 08:54 | ED_ITS ---
HPI - SOB/Dyspnea General Chief Complaint: Shortness of Breath/Dyspnea Stated Complaint: SOB Time Seen by Provider: 10/11/23 08:38 Source: patient Mode of arrival: ambulance Limitations: no limitations History of Present Illness HPI Narrative: This patient came by rescue squad. Her main complaint is shortness of breath. She has a longstanding history of COPD and anxiety disorder. She also has a history of chronic elevation of troponins and suspected underlying coronary artery disease. The paramedics administered 1 nebulizer treatment and steroid as well. [facility] reports that her pulse oximetry was in the 80s on their arrival. With 4 L she comes on up to 93 or 94%. She does not chronically use oxygen at home. Her last admission here was in August. Twelve-lead EKG was done on arrival here and does not show any evidence of ST segment elevation or malignant arrhythmia. She does have a pacemaker Related Data Home Medications ?Medication ?Instructions ?Recorded ?Confirmed alprazolam 1 mg tablet 1 mg PO BID 06/10/23 10/11/23 aspirin 81 mg tablet,delayed 81 mg PO DAILY 06/10/23 10/11/23 release atorvastatin 80 mg tablet 80 mg PO DAILY 06/10/23 10/11/23 buspirone 10 mg tablet 10 mg PO BID 06/10/23 10/11/23 clopidogrel 75 mg tablet 75 mg PO DAILY 06/10/23 10/11/23 dapagliflozin propanediol 10 mg 10 mg PO DAILY 06/10/23 10/11/23 tablet (Farxiga) gabapentin 300 mg capsule 300 mg PO TID 06/10/23 10/11/23 trazodone 50 mg tablet 50 mg PO DAILY 06/10/23 10/11/23 albuterol sulfate 90 mcg/actuation 2 puff inhalation Q6H PRN 06/29/23 10/11/23 aerosol inhaler shortness of breath or wheezing pantoprazole 40 mg tablet,delayed 40 mg PO DAILY 06/29/23 10/11/23 release furosemide 40 mg tablet 40 mg PO QAM 07/23/23 10/11/23 spironolactone 25 mg tablet 25 mg PO QAM 07/23/23 10/11/23 ibuprofen 800 mg tablet (IBU) 800 mg PO Q8H PRN pain 08/21/23 10/11/23 Previous Rx's ?Medication ?Instructions ?Recorded levothyroxine 75 mcg tablet 75 mcg PO ACB #30 tabs 06/11/23 carvedilol 12.5 mg tablet (Coreg) 12.5 mg PO BID #60 tabs 08/23/23 isosorbide mononitrate 30 mg 30 mg PO QD #30 tabs 08/23/23 tablet,extended release 24 hr levofloxacin 500 mg tablet 500 mg PO DAILY 7 days #7 tabs 08/23/23 nitroglycerin 0.4 mg sublingual 0.4 mg sublingual Q5M PRN chest 08/23/23 tablet pain #30 tabs Allergies Allergy/AdvReac Type Severity Reaction Status Date / Time No Known Drug Allergies Allergy Verified 08/20/23 21:47 [facility] Medical History (Updated 10/11/23 @ 11:35 by Nato Barnes MD) Hypertensive emergency ?I16.1 - Hypertensive emergency (ICD-10) Acute gastroenteritis ?K52.9 - Noninfective gastroenteritis and colitis, unspecified (ICD-10) Hypoxemia ?R09.02 - Hypoxemia (ICD-10) Chest pain ?R07.9 - Chest pain, unspecified (ICD-10) Coronary artery disease ?I25.10 - Atherosclerotic heart disease of [place] coronary artery without angina pectoris (ICD-10) Elevated troponin ?R79.89 - Other specified abnormal findings of blood chemistry (ICD-10) Pneumonia ?J18.9 - Pneumonia, unspecified organism (ICD-10) Anxiety ?F41.9 - Anxiety disorder, unspecified (ICD-10) Acute kidney injury ?N17.9 - Acute kidney failure, unspecified (ICD-10) Acute anxiety ?F41.9 - Anxiety disorder, unspecified (ICD-10) Pacemaker ?Z95.0 - Presence of cardiac pacemaker (ICD-10) Iron deficiency anemia ?D50.9 - Iron deficiency anemia, unspecified (ICD-10) COPD (chronic obstructive pulmonary disease) ?J44.9 - Chronic obstructive pulmonary disease, unspecified (ICD-10) Hypoxia ?R09.02 - Hypoxemia (ICD-10) Dyspnea ?R06.00 - Dyspnea, unspecified (ICD-10) Elevated brain natriuretic peptide (BNP) level ?R79.89 - Other specified abnormal findings of blood chemistry (ICD-10) Hypertension ?I10 - Essential (primary) hypertension (ICD-10) Elevated troponin ?R79.89 - Other specified abnormal findings of blood chemistry (ICD-10) Acute dyspnea ?R06.00 - Dyspnea, unspecified (ICD-10) IBS (irritable bowel syndrome) ?K58.9 - Irritable bowel syndrome without diarrhea (ICD-10) Anxiety ?F41.9 - Anxiety disorder, unspecified (ICD-10) Heart attack ?I21.9 - Acute myocardial infarction, unspecified (ICD-10) Sciatic leg pain ?M54.30 - Sciatica, unspecified side (ICD-10) Herniated disc, cervical ?M50.20 - Other cervical disc displacement, unspecified cervical region (ICD- 10) Surgical History History of appendectomy ?Z90.49 - Acquired absence of other specified parts of digestive tract (ICD- 10) History of heart artery stent ?Z95.5 - Presence of coronary angioplasty implant and graft (ICD-10) Family History Mother Family history of CHF (congestive heart failure) Family history of hypertension Father Family history of CHF (congestive heart failure) Brother Family history of CHF (congestive heart failure) Other Family history of diabetes mellitus Family history of myocardial infarction Social History (Updated 07/29/23 @ 19:35 by Consuelo Dejesus RN) Within the past year, how often did you have a drink containing alcohol: monthly or less Smoking status: Current every day smoker Nicotine containing products detail: 1 pack/week Non-prescribed substance use: cannabis (any form) Non-prescribed substance use details: smokes marijuana, gummies Highest level of school completed/degree received: high school graduate Are you now , , , , never or living with a partner: In a typical week, how many times do you talk on the telephone with family, friends, or neighbors: once per week How often do you get together with friends or relatives: never How often do you attend religion or catholic services: 4 or more times per year Do you belong to any clubs or organizations such as religion groups unions, fraternal or athletic groups, or school groups: no Total score: 1 Score interpretation: A score of less than or equal to 1 indicates the most socially isolated. Little interest or pleasure in doing things: several days Feeling down, depressed, or hopeless: several days Feel stressed/tense/nervous/anxious/difficulty sleeping: very much Life stressors: recent of family or friend Life stressor details: 2020 lost family Do you think of yourself as: straight/heterosexual Gender Identity: female Exam Narrative Exam Narrative: Patient arrived and was moderately anxious immediately requesting something for pain and anxiety. She her skin is warm and dry she is not clammy or diaphoretic. With supplemental oxygen her pulse oximetry is 95% on 4 L. Examination of the lungs she does have an expiratory bronchial spasm and decreased airflow bilaterally. There is no pleural or pericardial rub. Heart sounds are normal she does have EKG done that confirmed placement of a pacemaker. She says she just recently had replacement of the pacemaker wire. I do not hear a murmur at this time. Examination abdomen there is no tenderness guarding rebound or rigidity. Neurological shows no focal neurological deficits. Cognition is normal GCS is 15. She does not have any swelling phlebitis or evidence of cellulitis of her lower extremities. Constitutional Vital Signs, click to edit/add: Last Vital Signs Temp 98.1 F 10/11/23 08:39 Pulse 79 10/11/23 11:20 Resp 19 10/11/23 11:20 BP 132/70 10/11/23 11:16 Pulse Ox 91 L 10/11/23 11:20 O2 Del Method Nasal Cannula 10/11/23 09:20 O2 Flow Rate 2 10/11/23 09:20 Course Vital Signs Vital signs: Vital Signs Temperature 98.1 F 10/11/23 08:39 Pulse Rate 94 H 10/11/23 08:39 Respiratory Rate 20 10/11/23 08:39 Blood Pressure 168/95 H 10/11/23 08:39 Pulse Oximetry 90 L 10/11/23 08:39 Oxygen Delivery Method Nasal Cannula 10/11/23 08:39 Oxygen Delivery Flow Rate 4 10/11/23 08:39 Temperature 98.1 F 10/11/23 08:39 Pulse Rate 79 10/11/23 11:20 Respiratory Rate 19 10/11/23 11:20 Blood Pressure 132/70 10/11/23 11:16 Pulse Oximetry 91 L 10/11/23 11:20 Oxygen Delivery Method Nasal Cannula 10/11/23 09:20 Oxygen Delivery Flow Rate 2 10/11/23 09:20 MDM - SOB/Dyspnea MDM Narrative Medical decision making narrative: This patient lives by herself. She does not have home nebulizers at home and so squad administered nebulizer treatment and Solu-Medrol. She was given an additional nebulizer treatment here. She was given anxiety medication and something for pain. I did speak with her primary care doctor and he like her admitted. Lab Data Labs: Lab Results 10/11/23 Range/Units 09:08 WBC 7.6 (4.0-11.0) 10^3/uL RBC 4.99 (4.20-5.40) 10^6/uL Hgb 13.0 (12.0-16.0) g/dL Hct 43.5 (36.0-48.0) % MCV 87.2 (81.0-99.0) fL MCH 26.1 L (26.7-34.0) pg MCHC 29.9 (29.9-35.2) g/dL RDW 15.1 H (11.0-15.0) % Plt Count 314 (150-450) 10^3/uL MPV 10.3 (9.5-13.5) fL Neut % (Auto) 53.5 (43.0-75.0) % Lymph % (Auto) 35.6 (20.5-60.0) % Irion % (Auto) 6.2 (1.7-12.0) % Eos % (Auto) 4.0 (0.9-7.0) % Baso % (Auto) 0.4 (0.2-2.0) % Neut # (Auto) 4.0 (1.4-6.5) 10^3/uL Lymph # (Auto) 2.7 (1.2-3.8) 10^3/uL Irion # (Auto) 0.5 (0.3-0.8) 10^3/uL Eos # (Auto) 0.3 (0.0-0.7) 10^3/uL Baso # (Auto) 0.0 (0.0-0.1) 10^3/uL Abs Immat Gran (auto) 0.02 (0.00-0.03) 10^3/uL Imm/Tot Granulo (auto) 0.3 (0.0-0.5) % VBG pH 7.342 (7.330-7.430) VBG pCO2 56.9 H (40.0-52.0) mmHg Sodium 144 (136-145) mmol/L Potassium 4.6 (3.5-5.1) mmol/L Chloride 104 (98-107) mmol/L Carbon Dioxide 31.5 (21.0-32.0) mmol/L Anion Gap 13.1 BUN 8.0 (7.0-18.0) mg/dL Creatinine 1.15 H (0.55-1.02) mg/dL Est GFR ( Amer) 58 L (>=60) Est GFR (Non-Af Amer) 48 L (>=60) BUN/Creatinine Ratio 7.0 Glucose 174 H (74-106) mg/dL Calcium 8.8 (8.5-10.1) mg/dL Total Bilirubin 0.3 (0.2-1.0) mg/dL AST 23 (15-37) U/L ALT 24 (14-59) U/L Alkaline Phosphatase 104 (46-116) U/L Troponin I High Sens 81.2 H* (4.0-51.3) pg/mL NT-Pro-B Natriuret Pep 127.0 (<=900.0) pg/mL Total Protein 6.9 (6.4-8.2) g/dL Albumin 3.3 L (3.4-5.0) g/dL Globulin 3.6 g/dL Albumin/Globulin Ratio 0.9 Discharge Plan Discharge Chief Complaint: Shortness of Breath/Dyspnea Clinical Impression: Acute exacerbation of chronic obstructive pulmonary disease Patient Disposition: Admitted as Observation Time of Disposition Decision: 11:35 Prescriptions / Home Meds: No Action pantoprazole 40 mg tablet,delayed release (DR/EC) 40 mg PO DAILY Patient Comments: pt is out of med albuterol sulfate 90 mcg/actuation HFA aerosol inhaler 2 puff INHALATION Q6H PRN (Reason: shortness of breath or wheezing) furosemide 40 mg tablet 40 mg PO QAM spironolactone 25 mg tablet 25 mg PO QAM ibuprofen [IBU] 800 mg tablet 800 mg PO Q8H PRN (Reason: pain) levofloxacin 500 mg tablet 500 mg PO DAILY 7 Days Qty: 7 0RF isosorbide mononitrate 30 mg Tablet Extended Release 24 Hr 30 mg PO QD Qty: 30 11RF carvedilol [Coreg] 12.5 mg tablet 12.5 mg PO BID Qty: 60 11RF Rx Instructions: must administer with a meal/food nitroglycerin 0.4 mg tablet, sublingual 0.4 mg sublingual Q5M MDD 3/day PRN (Reason: chest pain) Qty: 30 11RF Rx Instructions: do not exceed 3 doses per episode atorvastatin 80 mg tablet 80 mg PO DAILY alprazolam 1 mg tablet 1 mg PO BID clopidogrel 75 mg tablet 75 mg PO DAILY aspirin 81 mg tablet,delayed release (DR/EC) 81 mg PO DAILY buspirone 10 mg tablet 10 mg PO BID gabapentin 300 mg capsule 300 mg PO TID dapagliflozin propanediol [Farxiga] 10 mg tablet 10 mg PO DAILY trazodone 50 mg tablet 50 mg PO DAILY levothyroxine 75 mcg Tablet 75 mcg PO ACB Qty: 30 11RF Print Language: Greek Referrals: Charlie Richardson MD [Primary Care Provider] - 1 week
--- NOTE | 2023-10-11 08:55 | XR_ITS ---
The [address] [address] Patient Name: EMERY JETT MRN: [id number] date: 1960 Sex: F Assigned Patient Location: ED.MAIN Current Patient Location: ER Accession/Order Number: [id number] Exam Date: 10/11/2023 09:10 Report Date: 10/11/2023 09:34 At the request of: TOMASA ALMANZAR Procedure: XR chest 1V EXAM: XR chest 1V HISTORY: Shortness of breath; technologist notes state shortness of breath, chest pain and history of COPD. COMPARISON: Portable chest radiograph dated 08/20/2023. TECHNIQUE: AP erect portable chest radiograph performed. FINDINGS: Stable left subclavian pacemaker with leads overlying the right atrium and the right ventricle. The trachea is midline. The heart size is within normal limits and stable. There is mild atheromatous calcification at the aortic arch. The hilar shadows are unremarkable. There is stable mild epicardial fat at the left cardiac angle. There is no consolidation, pleural effusion or pulmonary vascular congestion. There is no pneumothorax or acute osseous adenopathy. XR/XR chest 1V IMPRESSION: There is no acute cardiopulmonary process. Electronically authenticated by: PRESTON MESA Date: 10/11/2023 09:34
--- NOTE | 2023-10-11 09:00 | ECG_ITS ---
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
[2023-10-11] MEDS: IPRATROPIUM/ALBUTEROL SULFATE 3 ML AMPUL.NEB IH ×3 (09:19→23:31)
[2023-10-11 09:32] LABS: PCO2 VBG 56.9 mmHg (40.0-52.0); pH VBG 7.342 (7.330-7.430)
[2023-10-11 09:34] LABS: Basophils Percent Auto 0.4 % (0.2-2.0); Eosinophils Absolute Auto 0.3 10^3/uL (0.0-0.7); Hematocrit 43.5 % (36.0-48.0); Immature Granulocytes Abs Auto 0.02 10^3/uL (0.00-0.03); Immature Granulocytes Pct Auto 0.3 % (0.0-0.5); Lymphocytes Absolute Auto 2.7 10^3/uL (1.2-3.8); Lymphocytes Percent Auto 35.6 % (20.5-60.0); Mean Corpuscular HGB Conc 29.9 g/dL (29.9-35.2); Mean Corpuscular Hemoglobin 26.1 pg (26.7-34.0); Mean Corpuscular Volume 87.2 fL (81.0-99.0); Mean Platelet Volume 10.3 fL (9.5-13.5); Monocytes Absolute Auto 0.5 10^3/uL (0.3-0.8); Monocytes Percent Auto 6.2 % (1.7-12.0); Neutrophils Percent Auto 53.5 % (43.0-75.0); Platelet Count 314 10^3/uL (150-450); Red Blood Count 4.99 10^6/uL (4.20-5.40); Red Cell Distribution Width 15.1 % (11.0-15.0); White Blood Count 7.6 10^3/uL (4.0-11.0)
[2023-10-11] MEDS: LORAZEPAM 2 MG/ML VIAL 1 MG IV (09:38)
[2023-10-11 09:59] LABS: Alanine Aminotransferase 24 U/L (14-59); Albumin Globulin Ratio 0.9; Albumin Level 3.3 g/dL (3.4-5.0); Alkaline Phosphatase 104 U/L (46-116); Anion Gap 13.1; Aspartate Amino Transferase 23 U/L (15-37); Bilirubin Total 0.3 mg/dL (0.2-1.0); Calcium 8.8 mg/dL (8.5-10.1); Carbon Dioxide 31.5 mmol/L (21.0-32.0); Chloride 104 mmol/L (98-107); Estimated GFR (African America 58 (>=60); Estimated GFR (Non-African Ame 48 (>=60); Globulin 3.6 g/dL; Glucose 174 mg/dL (74-106); Potassium 4.6 mmol/L (3.5-5.1); Sodium 144 mmol/L (136-145); Total Protein 6.9 g/dL (6.4-8.2)
[2023-10-11 10:01] LABS: Troponin I High Sensitivity 81.2 pg/mL (4.0-51.3)
[2023-10-11] MEDS: KETOROLAC TROMETHAMINE 30 MG/ML VIAL IVP ×2 (10:32→14:34)
--- NOTE | 2023-10-11 13:11 | P.HP_ITS ---
HPI H&P: HPI History of Present Illness Chief complaint: SOB Narrative: Patient presented to the emergency room with increasing shortness of breath and cough. In ER she had her usual elevation in her troponin. Not significantly elevated for her. BNP was normal. Cough is productive and requiring placed on supplemental oxygen. I saw patient up on the medical surgical floor, she has some mild conversational dyspnea, cough throughout the evaluation. Opioid HPI Opioid Management Most Recent Opioid Data: Last Pain Scale 10 10/12/23 03:11 Last Pain Intensity 0 10/11/23 16:32 Last Pain Assessment 10/12/23 06:00 Last ED Pain Assessment 10/11/23 09:53 Last MAR Pain Assessment 10/12/23 04:41 Last ORT Total Score 1 10/11/23 12:26 Last ORT Risk Category Low Risk 10/11/23 12:26 Ur Phencyclidine Scrn Negative (NEGATIVE) 06/10/23 09:30 PFSH PFSH Medical History (Updated 10/11/23 @ 11:35 by Nato Barnes MD) Hypertensive emergency ?I16.1 - Hypertensive emergency (ICD-10) Acute gastroenteritis ?K52.9 - Noninfective gastroenteritis and colitis, unspecified (ICD-10) Hypoxemia ?R09.02 - Hypoxemia (ICD-10) Chest pain ?R07.9 - Chest pain, unspecified (ICD-10) Coronary artery disease ?I25.10 - Atherosclerotic heart disease of [place] coronary artery without angina pectoris (ICD-10) Elevated troponin ?R79.89 - Other specified abnormal findings of blood chemistry (ICD-10) Pneumonia ?J18.9 - Pneumonia, unspecified organism (ICD-10) Anxiety ?F41.9 - Anxiety disorder, unspecified (ICD-10) Acute kidney injury ?N17.9 - Acute kidney failure, unspecified (ICD-10) Acute anxiety ?F41.9 - Anxiety disorder, unspecified (ICD-10) Pacemaker ?Z95.0 - Presence of cardiac pacemaker (ICD-10) Iron deficiency anemia ?D50.9 - Iron deficiency anemia, unspecified (ICD-10) COPD (chronic obstructive pulmonary disease) ?J44.9 - Chronic obstructive pulmonary disease, unspecified (ICD-10) Hypoxia ?R09.02 - Hypoxemia (ICD-10) Dyspnea ?R06.00 - Dyspnea, unspecified (ICD-10) Elevated brain natriuretic peptide (BNP) level ?R79.89 - Other specified abnormal findings of blood chemistry (ICD-10) Hypertension ?I10 - Essential (primary) hypertension (ICD-10) Elevated troponin ?R79.89 - Other specified abnormal findings of blood chemistry (ICD-10) Acute dyspnea ?R06.00 - Dyspnea, unspecified (ICD-10) IBS (irritable bowel syndrome) ?K58.9 - Irritable bowel syndrome without diarrhea (ICD-10) Anxiety ?F41.9 - Anxiety disorder, unspecified (ICD-10) Heart attack ?I21.9 - Acute myocardial infarction, unspecified (ICD-10) Sciatic leg pain ?M54.30 - Sciatica, unspecified side (ICD-10) Herniated disc, cervical ?M50.20 - Other cervical disc displacement, unspecified cervical region (ICD- 10) Surgical History History of appendectomy ?Z90.49 - Acquired absence of other specified parts of digestive tract (ICD- 10) History of heart artery stent ?Z95.5 - Presence of coronary angioplasty implant and graft (ICD-10) Family History Mother Family history of CHF (congestive heart failure) Family history of hypertension Father Family history of CHF (congestive heart failure) Brother Family history of CHF (congestive heart failure) Other Family history of diabetes mellitus Family history of myocardial infarction Social History (Updated 10/11/23 @ 12:25 by Светлана Martell) Within the past year, how often did you have a drink containing alcohol: monthly or less Smoking status: Light tobacco smoker Nicotine containing products detail: 1 pack/week Non-prescribed substance use: cannabis (any form) Non-prescribed substance use details: smokes marijuana, gummies Highest level of school completed/degree received: high school graduate Are you now , , , , never or living with a partner: In a typical week, how many times do you talk on the telephone with family, friends, or neighbors: once per week How often do you get together with friends or relatives: never How often do you attend judaism or worship services: 4 or more times per year Do you belong to any clubs or organizations such as judaism groups unions, [employer] or athletic groups, or school groups: no Total score: 1 Score interpretation: A score of less than or equal to 1 indicates the most socially isolated. Little interest or pleasure in doing things: several days Feeling down, depressed, or hopeless: several days Feel stressed/tense/nervous/anxious/difficulty sleeping: very much Life stressors: recent of family or friend Life stressor details: 2020 lost family Do you think of yourself as: straight/heterosexual Gender Identity: female Meds Home Medications and Allergies Home Medications ?Medication ?Instructions ?Recorded ?Confirmed ?Type alprazolam 1 mg tablet 1 mg PO BID 06/10/23 10/11/23 History aspirin 81 mg tablet,delayed 81 mg PO DAILY 06/10/23 10/11/23 History release atorvastatin 80 mg tablet 80 mg PO DAILY 06/10/23 10/11/23 History buspirone 10 mg tablet 10 mg PO BID 06/10/23 10/11/23 History clopidogrel 75 mg tablet 75 mg PO DAILY 06/10/23 10/11/23 History dapagliflozin propanediol 10 mg 10 mg PO DAILY 06/10/23 10/11/23 History tablet (Farxiga) gabapentin 300 mg capsule 300 mg PO TID 06/10/23 10/11/23 History trazodone 50 mg tablet 50 mg PO DAILY PRN insomnia 06/10/23 10/11/23 History levothyroxine 75 mcg tablet 75 mcg PO ACB #30 tabs 06/11/23 10/11/23 Rx albuterol sulfate 90 mcg/actuation 1 puff inhalation Q4H PRN 06/29/23 10/11/23 History aerosol inhaler shortness of breath or wheezing pantoprazole 40 mg tablet,delayed 40 mg PO DAILY 06/29/23 10/11/23 History release carvedilol 12.5 mg tablet (Coreg) 12.5 mg PO BID #60 tabs 08/23/23 10/11/23 Rx isosorbide mononitrate 30 mg 30 mg PO QD #30 tabs 08/23/23 10/11/23 Rx tablet,extended release 24 hr nitroglycerin 0.4 mg sublingual 0.4 mg sublingual Q5M PRN chest 08/23/23 10/11/23 Rx tablet pain #30 tabs Allergies Allergy/AdvReac Type Severity Reaction Status Date / Time No Known Drug Allergies Allergy Verified 08/20/23 21:47 Exam Constitutional Vital Signs, click to edit/add: Last Vital Signs Temp 98.2 F 10/11/23 12:26 Pulse 87 10/11/23 12:26 Resp 20 10/11/23 12:26 BP 135/80 10/11/23 12:26 Pulse Ox 92 L 10/11/23 12:26 O2 Del Method Room Air 10/11/23 12:26 O2 Flow Rate 2 10/11/23 09:20 Documenting provider has reviewed patient's vital signs: yes Common normals: apparent distress (Mild conversational dyspnea) Respiratory Common normals: no retractions and no use of accessory muscles; abnormal respiratory effort (Mild conversational dyspnea) Auscultation: rhonchi; no wheezes Cardio Common normals: regular rate, regular rhythm and no murmurs GI Common normals: Normal to inspection, nondistended, normoactive bowel sounds present Extremity Common normals: no clubbing, cyanosis or edema Results Labs Labs: Short CBC 10/11/23 Range/Units 09:08 WBC 7.6 (4.0-11.0) 10^3/uL Hgb 13.0 (12.0-16.0) g/dL Hct 43.5 (36.0-48.0) % Plt Count 314 (150-450) 10^3/uL BMP 10/11/23 09:08 Sodium 144 Potassium 4.6 Chloride 104 Carbon Dioxide 31.5 BUN 8.0 Creatinine 1.15 H Glucose 174 H Calcium 8.8 Liver Function 10/11/23 Range/Units 09:08 Total Bilirubin 0.3 (0.2-1.0) mg/dL AST 23 (15-37) U/L ALT 24 (14-59) U/L Alkaline Phosphatase 104 (46-116) U/L Albumin 3.3 L (3.4-5.0) g/dL ABG ABG results: 10/11/23 09:08 VBG pH 7.342 VBG pCO2 56.9 H Assessment and Plan Assessment and Plan (1) Acute exacerbation of chronic obstructive pulmonary disease: Plan Admission findings: Respiratory distress, uncontrolled hypertension, elevated HST, chronic for her. Due to acute exacerbation of COPD. Patient will be placed in observation bed overnight with IV antibiotics and steroids. Try to wean off of supplemental oxygen. If improved tomorrow possible discharge Chronic kidney disease stage II-monitor daily Chronic elevation in high-sensitivity troponin-monitor daily Low back pain with mild radiculopathy-physical therapy and Toradol. Steroids for the COPD exacerbation should also be of assistance Generalized anxiety disorder-continue with current medications GERD-continue with current medications Admission status: Acute exacerbation of COPD. Patient likely in the hospital for less than 24 hours, place patient observation status. If medically necessary treatment will span 2 midnights we will change to inpatient status.
--- NOTE | 2023-10-11 13:41 | SWNOTE1 ---
SW met with pt to discuss dc needs and check in on patient. Pt is still living in her apartment. She voiced she is doing well. SW asked about her medicaid? She voiced she has not been able to turn everything in, she stated she knows she is not going to qualify so she is not going to worry about it. Pt stated she was out in the rain walking to get her groceries yesterday. She then woke up today and felt like an elephant was sitting on her chest and she was short of breath. Pt voiced she is feeling better now. Pt voiced she still has some friends she talks to. SW asked about depression and she stated she has good days and bad days like everyone does. At this time pt does not voice any discharge needs. SW to follow as needed. Medicare Outpatient Observation Notice reviewed and discussed with patient. Pt. verbalized understanding and signed the form. Original given to patient and copy placed in patient?s chart.
[2023-10-11] MEDS: CEFTRIAXONE 1,000 MG in 0.9 % SODIUM CHLORIDE 50 ML 100 MG IV (14:26)
[2023-10-11] MEDS: METHYLPREDNISOLONE SOD SUCC PF 125 MG/2 ML VIAL 60 MG IVP ×2 (14:28→20:08)
[2023-10-11] MEDS: LEVOFLOXACIN IN DEXTROSE 5 % 750 MG/150 ML IV.SOLN 100 MG IV (17:04)
[2023-10-11] MEDS: BENZONATATE 100 MG CAPSULE 200 MG PO (19:17)
--- NOTE | 2023-10-11 19:25 | PC.NURSE ---
pt coughing to the point she vomited. Tessalon Perles given per PRN order. Pt denies any other needs at this time. Pt in bed with call light in reach.
[2023-10-11] MEDS: GABAPENTIN 300 MG CAPSULE PO (21:01)
[2023-10-11] MEDS: BUSPIRONE HCL 10 MG TABLET PO (21:01)
[2023-10-11] MEDS: TRAZODONE HCL 50 MG TABLET PO (21:01)
[2023-10-11] MEDS: CARVEDILOL 12.5 MG TABLET PO (21:01)
[2023-10-11] MEDS: ALPRAZOLAM 1 MG TABLET PO (21:01)
[2023-10-11] MEDS: GUAIFENESIN 200 MG/DEXTROMETHORPHAN 20 MG 10 ML UNIT DOSE CUP PO (21:59)
[2023-10-11] MEDS: CALCIUM CARBONATE 500 MG (200MG ELEMENTAL) TAB CHEW PO (21:59)
[2023-10-12 03:00] VITALS: BP 137/87; PULSE 80; TEMP 36.9; O2SAT 93
[2023-10-12] MEDS: METHYLPREDNISOLONE SOD SUCC PF 125 MG/2 ML VIAL 60 MG IVP ×2 (03:07→09:08)
[2023-10-12] MEDS: KETOROLAC TROMETHAMINE 30 MG/ML VIAL IVP ×2 (03:11→09:09)
[2023-10-12] MEDS: IPRATROPIUM/ALBUTEROL SULFATE 3 ML AMPUL.NEB IH ×2 (04:54→11:02)
[2023-10-12] MEDS: GABAPENTIN 300 MG CAPSULE PO (05:40)
[2023-10-12] MEDS: GUAIFENESIN 200 MG/DEXTROMETHORPHAN 20 MG 10 ML UNIT DOSE CUP PO (05:40)
[2023-10-12] MEDS: LEVOTHYROXINE SODIUM 75 MCG TABLET PO (05:40)
[2023-10-12 05:48] LABS: Basophils Percent Auto 0.1 % (0.2-2.0); Hematocrit 40.2 % (36.0-48.0); Hemoglobin 12.1 g/dL (12.0-16.0); Immature Granulocytes Abs Auto 0.12 10^3/uL (0.00-0.03); Immature Granulocytes Pct Auto 0.6 % (0.0-0.5); Lymphocytes Absolute Auto 1.2 10^3/uL (1.2-3.8); Lymphocytes Percent Auto 6.2 % (20.5-60.0); Mean Corpuscular HGB Conc 30.1 g/dL (29.9-35.2); Mean Corpuscular Hemoglobin 25.8 pg (26.7-34.0); Mean Corpuscular Volume 85.7 fL (81.0-99.0); Mean Platelet Volume 10.9 fL (9.5-13.5); Monocytes Absolute Auto 0.2 10^3/uL (0.3-0.8); Monocytes Percent Auto 0.9 % (1.7-12.0); Neutrophils Absolute Auto 17.4 10^3/uL (1.4-6.5); Neutrophils Percent Auto 92.2 % (43.0-75.0); Platelet Count 275 10^3/uL (150-450); Red Blood Count 4.69 10^6/uL (4.20-5.40); Red Cell Distribution Width 15.1 % (11.0-15.0); White Blood Count 18.8 10^3/uL (4.0-11.0)
[2023-10-12 06:04] LABS: Alanine Aminotransferase 20 U/L (14-59); Albumin Globulin Ratio 0.8; Albumin Level 3.1 g/dL (3.4-5.0); Alkaline Phosphatase 95 U/L (46-116); Anion Gap 12.1; Aspartate Amino Transferase 21 U/L (15-37); BUN Creatinine Ratio 15.4; Bilirubin Total 0.3 mg/dL (0.2-1.0); Calcium 9.2 mg/dL (8.5-10.1); Carbon Dioxide 30.6 mmol/L (21.0-32.0); Chloride 100 mmol/L (98-107); Estimated GFR (African America 50 (>=60); Estimated GFR (Non-African Ame 42 (>=60); Globulin 3.7 g/dL; Glucose 263 mg/dL (74-106); Potassium 4.7 mmol/L (3.5-5.1); Sodium 138 mmol/L (136-145); Total Protein 6.8 g/dL (6.4-8.2)
[2023-10-12 06:30] LABS: Troponin I High Sensitivity 75.5 pg/mL (4.0-51.3)
--- NOTE | 2023-10-12 08:06 | P.DS_ITS ---
DS: Providers Provider Date of admission: 10/11/23 12:14 Primary care physician: Charlie Richardson MD Consults: 10/11/23 13:08 Consult to Pharmacy Routine Consulting Provider: Reason for consultation: Please [place] me when Med Rec is Updated Has provider been notified: No Occupational Therapy Eval and Treat Routine Reason for consultation: Only if needed for Rehab Has provider been notified: No Physical Therapy Eval and Treat Routine Reason for consultation: Eval and Treat Has provider been notified: No DS: Diagnosis Discharge Diagnosis (1) Acute exacerbation of chronic obstructive pulmonary disease: Plan Admission findings: Respiratory distress, uncontrolled hypertension, elevated HST, chronic for her. Due to acute exacerbation of COPD. Being at the time of discharge Chronic kidney disease stage II-stable at the time of discharge Chronic elevation in high-sensitivity troponin-improving at the time of discharge Low back pain with mild radiculopathy-physical therapy and Toradol. Stable at the time of discharge Generalized anxiety disorder-stable at the time of discharge GERD-stable at the time of discharge Admission status: Acute exacerbation of COPD. Patient likely in the hospital for less than 24 hours, place patient observation status. If medically ne cessary treatment will span 2 midnights we will change to inpatient status. DS: Summary Hospital Course Hospital Course: Patient was admitted with increasing cough and shortness of breath. High- sensitivity troponin was elevated but it is always elevated for her and not as elevated as previous episodes. Actually improved the following day. Treated for acute exacerbation of COPD with steroids, aerosols, antibiotics. Her cough is persisting on the day of discharge but she is no longer requiring supplemental oxygen. Will have her ambulate this morning. If she ambulates well she will be discharged home in improving condition. Medications see list. Follow-up with me in the office next week. Time Spent with Patient Time attestation: Total time spent providing and/or coordinating discharge services: Time spent: less than 30 minutes Exam Constitutional Vital Signs, click to edit/add: Last Vital Signs Temp 98.4 F 10/12/23 03:00 Pulse 80 10/12/23 03:00 Resp 16 10/12/23 03:00 BP 137/87 10/12/23 03:00 Pulse Ox 93 L 10/12/23 03:00 O2 Del Method Room Air 10/12/23 03:00 O2 Flow Rate 2 10/11/23 09:20 Documenting provider has reviewed patient's vital signs: yes Common normals: apparent distress (Mild conversational dyspnea) Respiratory Common normals: no retractions and no use of accessory muscles; abnormal respiratory effort (Mild conversational dyspnea) Auscultation: no rhonchi and no wheezes Cardio Common normals: regular rate, regular rhythm and no murmurs GI Common normals: Normal to inspection, nondistended, normoactive bowel sounds present Extremity Common normals: no clubbing, cyanosis or edema DS: Data Data Completed and Pending Labs on day of discharge: Labs from last 24 hours 10/12/23 10/11/23 04:13 09:08 WBC 18.8 H 7.6 RBC 4.69 4.99 Hgb 12.1 13.0 Hct 40.2 43.5 MCV 85.7 87.2 MCH 25.8 L 26.1 L MCHC 30.1 29.9 RDW 15.1 H 15.1 H Plt Count 275 314 MPV 10.9 10.3 Neut % (Auto) 92.2 H 53.5 Lymph % (Auto) 6.2 L 35.6 [place] % (Auto) 0.9 L 6.2 Eos % (Auto) 0.0 L 4.0 Baso % (Auto) 0.1 L 0.4 Neut # (Auto) 17.4 H 4.0 Lymph # (Auto) 1.2 2.7 [place] # (Auto) 0.2 L 0.5 Eos # (Auto) 0.0 0.3 Baso # (Auto) 0.0 0.0 Abs Immat Gran (auto) 0.12 H 0.02 Imm/Tot Granulo (auto) 0.6 H 0.3 VBG pH 7.342 VBG pCO2 56.9 H Sodium 138 144 Potassium 4.7 4.6 Chloride 100 104 Carbon Dioxide 30.6 31.5 Anion Gap 12.1 13.1 BUN 20.0 H 8.0 Creatinine 1.30 H 1.15 H Est GFR ( Amer) 50 L 58 L Est GFR (Non-Af Amer) 42 L 48 L BUN/Creatinine Ratio 15.4 7.0 Glucose 263 H 174 H Calcium 9.2 8.8 Total Bilirubin 0.3 0.3 AST 21 23 ALT 20 24 Alkaline Phosphatase 95 104 Troponin I High Sens 75.5 H* 81.2 H* NT-Pro-B Natriuret Pep 1215.0 H* 127.0 Total Protein 6.8 6.9 Albumin 3.1 L 3.3 L Globulin 3.7 3.6 Albumin/Globulin Ratio 0.8 0.9 Discharge Plan Discharge Disposition: Home, Self-Care Discharge Medications: New prednisone 10 mg tablet 50 mg PO DAILY Qty: 47 0RF Rx Instructions: 5/day for 3 days. 4/day for 3 days, 3/day for 3 days, 2/day for 3 days, 1/day for 3 days, 1/2 /day for 4 days levofloxacin 750 mg tablet 750 mg PO DAILY 10 Days Qty: 10 0RF promethazine-DM 6.25-15 mg/5 mL syrup 5 ml PO Q4H PRN (Reason: cough) Qty: 118 0RF Continued pantoprazole 40 mg tablet,delayed release (DR/EC) 40 mg PO DAILY albuterol sulfate 90 mcg/actuation HFA aerosol inhaler 1 puff INHALATION Q4H PRN (Reason: shortness of breath or wheezing) isosorbide mononitrate 30 mg Tablet Extended Release 24 Hr 30 mg PO QD Qty: 30 11RF carvedilol [Coreg] 12.5 mg tablet 12.5 mg PO BID Qty: 60 11RF Rx Instructions: must administer with a meal/food nitroglycerin 0.4 mg tablet, sublingual 0.4 mg sublingual Q5M MDD 3/day PRN (Reason: chest pain) Qty: 30 11RF Rx Instructions: do not exceed 3 doses per episode atorvastatin 80 mg tablet 80 mg PO DAILY alprazolam 1 mg tablet 1 mg PO BID clopidogrel 75 mg tablet 75 mg PO DAILY aspirin 81 mg tablet,delayed release (DR/EC) 81 mg PO DAILY buspirone 10 mg tablet 10 mg PO BID gabapentin 300 mg capsule 300 mg PO TID dapagliflozin propanediol [Farxiga] 10 mg tablet 10 mg PO DAILY trazodone 50 mg tablet 50 mg PO DAILY PRN (Reason: insomnia) levothyroxine 75 mcg Tablet 75 mcg PO ACB Qty: 30 11RF Print Language: Namibian Forms: Portal Instructions
[2023-10-12 08:47] VITALS: BP 160/80; PULSE 84; TEMP 36.8; O2SAT 94
[2023-10-12] MEDS: ASPIRIN 81 MG TABLET.DR PO (09:07)
[2023-10-12] MEDS: OMEPRAZOLE 40 MG CAPSULE.DR PO (09:07)
[2023-10-12] MEDS: BUSPIRONE HCL 10 MG TABLET PO (09:07)
[2023-10-12] MEDS: CHLORPHENIRAMINE PO (09:08)
[2023-10-12] MEDS: ALPRAZOLAM 1 MG TABLET PO (09:08)
[2023-10-12] MEDS: DEXTROMETHORP PO (09:08)
[2023-10-12] MEDS: CARVEDILOL 12.5 MG TABLET PO (09:08)
[2023-10-12] MEDS: ISOSORBIDE MONONITRATE 30 MG TAB.ER.24H PO (09:08)
[2023-10-12] MEDS: CLOPIDOGREL BISULFATE 75 MG TABLET PO (09:08)
[2023-10-12] MEDS: CANAGLIFLOZIN 100 MG TABLET 300 MG PO (09:08)
[2023-10-12] MEDS: ATORVASTATIN CALCIUM 40 MG TABLET 80 MG PO (09:08)
[2023-10-12] MEDS: PROMETHAZINE HCL 25 MG TABLET PO (09:08)
--- NOTE | 2023-10-12 10:05 | SWNOTE1 ---
Pt will be discharged today and will need a ride. SW called and set up trips and they will be here between 1:10-1:40 to transport pt home. SW let nursing know time. Pt has no needs at discharge.
[2023-10-12 11:04] VITALS: PULSE 83; O2SAT 92
--- NOTE | 2023-10-15 15:49 | CM.DCFOLLOWU ---
Person spoke with: Vivian How are you feeling? Better How is your pain? No pain Did you understand your discharge instructions? Yes Do you have any questions about your discharge instructions? No Were you given any prescriptions at discharge? Yes Were you able to get your prescriptions filled? Yes Do you understand how to take your medications as ordered? Yes Do you have any questions about your follow up appointment and do you plan to keep your follow up appointment? It is tomorrow with Dr. Richardson and I plan on going. Is there anything else that you would like to discuss? No Questions/Comments/Concerns/Other:
== END 2023-10-12 13:17 | disposition home or self-care (01) ==
LOC: ER 11:35 → MS 12:17
PROVIDERS: Admitting Provider Family Medicine; Emergency Provider Emergency Medicine Emergency Medical Services; PCP Family Medicine; Visit Provider Family Medicine
DX: J44.1 Chronic obstructive pulmonary disease with (acute) exacerbation (principal); R06.03 Acute respiratory distress; I10 Essential (primary) hypertension; N18.2 Chronic kidney disease, stage 2 (mild); R79.89 Other specified abnormal findings of blood chemistry; M54.50 Low back pain, unspecified; M54.16 Radiculopathy, lumbar region; F41.1 Generalized anxiety disorder; K21.9 Gastro-esophageal reflux disease without esophagitis; F17.210 Nicotine dependence, cigarettes, uncomplicated; Z95.0 Presence of cardiac pacemaker
CPT/HCPCS: 36415; 71045; 80053; 82800; 83880; 84484; 85025; 93005; 94640; 94667; 94668; 94761; 96365; 96366; 96367; 96375; 96376; 97161; 99285; G0378; J2919

== ENCOUNTER 2023-12-12 15:50 | Emergency (ER) | payer OTHER, SELFPAY ==
[2023-12-12] VITALS (17 sets, daily range): BP systolic 110–113; BP diastolic 80–83; PULSE 79–110; TEMP 36.6; O2SAT 98; BMI 23.5
--- NOTE | 2023-12-12 15:54 | ECG_ITS ---
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
--- NOTE | 2023-12-12 16:05 | XR_ITS ---
The [address] [address] Patient Name: EMERY JETT MRN: [id number] date: 1960 Sex: F Assigned Patient Location: ED.MAIN Current Patient Location: ED.MAIN Accession/Order Number: [id number] Exam Date: 12/12/2023 16:00 Report Date: 12/12/2023 17:39 At the request of: SHAUN GARCIA Procedure: XR chest 1V EXAM: XR chest 1V , 12/12/2023 HISTORY: chest pain COMPARISON: Previous x-ray from 10/11/2023 TECHNIQUE: Portable AP upright x-ray of the chest. FINDINGS: Cardiac silhouette within normal limits. Mild atherosclerosis calcification of the aortic arch. No hilar or mediastinal enlargement. Left subclavian dual-lead cardiac pacemaker. The lungs and costophrenic angles are clear. No acute osseous findings. No significant interval change. XR/XR chest 1V IMPRESSION: No acute cardiopulmonary findings. Electronically authenticated by: PARAMJIT MANNING Date: 12/12/2023 17:39
[2023-12-12] MEDS: LORAZEPAM 0.5 MG TABLET 1 MG PO (16:19)
[2023-12-12] MEDS: KETOROLAC TROMETHAMINE 30 MG/ML VIAL 15 MG IVP (16:20)
[2023-12-12] MEDS: ACETAMINOPHEN 500 MG TABLET PO (16:20)
[2023-12-12 16:22] LABS: Basophils Percent Auto 0.2 % (0.2-2.0); Eosinophils Absolute Auto 0.1 10^3/uL (0.0-0.7); Eosinophils Percent Auto 0.5 % (0.9-7.0); Hematocrit 45.4 % (36.0-48.0); Hemoglobin 14.5 g/dL (12.0-16.0); Immature Granulocytes Abs Auto 0.02 10^3/uL (0.00-0.03); Immature Granulocytes Pct Auto 0.2 % (0.0-0.5); Lymphocytes Absolute Auto 1.8 10^3/uL (1.2-3.8); Lymphocytes Percent Auto 18.8 % (20.5-60.0); Mean Corpuscular HGB Conc 31.9 g/dL (29.9-35.2); Mean Corpuscular Hemoglobin 26.1 pg (26.7-34.0); Mean Corpuscular Volume 81.8 fL (81.0-99.0); Mean Platelet Volume 9.6 fL (9.5-13.5); Monocytes Absolute Auto 0.6 10^3/uL (0.3-0.8); Monocytes Percent Auto 6.2 % (1.7-12.0); Neutrophils Absolute Auto 7.1 10^3/uL (1.4-6.5); Neutrophils Percent Auto 74.1 % (43.0-75.0); Platelet Count 368 10^3/uL (150-450); Red Blood Count 5.55 10^6/uL (4.20-5.40); Red Cell Distribution Width 17.4 % (11.0-15.0); White Blood Count 9.6 10^3/uL (4.0-11.0)
--- NOTE | 2023-12-12 16:35 | ED_ITS ---
HPI HPI - General Adult General Chief complaint: Anxiety Stated complaint: Anxiety Time Seen by Provider: 12/12/23 15:52 Source: patient Mode of arrival: ambulance Limitations: no limitations History of Present Illness HPI narrative: 63-year-old female to the emergency department chief complaint of anxiety. Patient reports that she occasionally gets panic attacks. She reports that she has started her typical sciatic pain, typical abdominal pain, chest pain today. She reports she was thinking about these things and got worried. Related Data Home Medications ?Medication ?Instructions ?Recorded ?Confirmed alprazolam 1 mg tablet 1 mg PO BID 06/10/23 10/11/23 aspirin 81 mg tablet,delayed 81 mg PO DAILY 06/10/23 10/11/23 release atorvastatin 80 mg tablet 80 mg PO DAILY 06/10/23 10/11/23 buspirone 10 mg tablet 10 mg PO BID 06/10/23 10/11/23 clopidogrel 75 mg tablet 75 mg PO DAILY 06/10/23 10/11/23 dapagliflozin propanediol 10 mg 10 mg PO DAILY 06/10/23 10/11/23 tablet (Farxiga) gabapentin 300 mg capsule 300 mg PO TID 06/10/23 10/11/23 trazodone 50 mg tablet 50 mg PO DAILY PRN insomnia 06/10/23 10/11/23 albuterol sulfate 90 mcg/actuation 1 puff inhalation Q4H PRN 06/29/23 10/11/23 aerosol inhaler shortness of breath or wheezing pantoprazole 40 mg tablet,delayed 40 mg PO DAILY 06/29/23 10/11/23 release Previous Rx's ?Medication ?Instructions ?Recorded levothyroxine 75 mcg tablet 75 mcg PO ACB #30 tabs 06/11/23 carvedilol 12.5 mg tablet (Coreg) 12.5 mg PO BID #60 tabs 08/23/23 isosorbide mononitrate 30 mg 30 mg PO QD #30 tabs 08/23/23 tablet,extended release 24 hr nitroglycerin 0.4 mg sublingual 0.4 mg sublingual Q5M PRN chest 08/23/23 tablet pain #30 tabs levofloxacin 750 mg tablet 750 mg PO DAILY 10 days #10 tabs 10/12/23 prednisone 10 mg tablet 50 mg (5 x 10 mg) PO DAILY #47 tabs 10/12/23 promethazine-DM 6.25 mg-15 mg/5 mL 5 ml PO Q4H PRN cough #118 mL 10/12/23 oral syrup Allergies Allergy/AdvReac Type Severity Reaction Status Date / Time No Known Drug Allergies Allergy Verified 08/20/23 21:47 Opioid HPI Opioid Management Most Recent Opioid Data: Last Pain Scale 5 10/12/23 11:13 Last Pain Intensity 0 10/11/23 16:32 Last MAR Pain Assessment 12/12/23 18:12 Last ORT Total Score 1 10/11/23 12:26 Last ORT Risk Category Low Risk 10/11/23 12:26 Ur Phencyclidine Scrn Negative (NEGATIVE) 06/10/23 09:30 Review of Systems ROS Status of ROS 10 or more systems reviewed and unremark able except as noted in history and below [facility] Medical History (Updated 12/12/23 @ 18:43 by Arsenio Martin MD) Acute exacerbation of chronic obstructive pulmonary disease ?J44.1 - Chronic obstructive pulmonary disease with (acute) exacerbation (ICD-10) Hypertensive emergency ?I16.1 - Hypertensive emergency (ICD-10) Acute gastroenteritis ?K52.9 - Noninfective gastroenteritis and colitis, unspecified (ICD-10) Hypoxemia ?R09.02 - Hypoxemia (ICD-10) Chest pain ?R07.9 - Chest pain, unspecified (ICD-10) Coronary artery disease ?I25.10 - Atherosclerotic heart disease of [place] coronary artery without angina pectoris (ICD-10) Elevated troponin ?R79.89 - Other specified abnormal findings of blood chemistry (ICD-10) Pneumonia ?J18.9 - Pneumonia, unspecified organism (ICD-10) Anxiety ?F41.9 - Anxiety disorder, unspecified (ICD-10) Acute kidney injury ?N17.9 - Acute kidney failure, unspecified (ICD-10) Acute anxiety ?F41.9 - Anxiety disorder, unspecified (ICD-10) Pacemaker ?Z95.0 - Presence of cardiac pacemaker (ICD-10) Iron deficiency anemia ?D50.9 - Iron deficiency anemia, unspecified (ICD-10) COPD (chronic obstructive pulmonary disease) ?J44.9 - Chronic obstructive pulmonary disease, unspecified (ICD-10) Hypoxia ?R09.02 - Hypoxemia (ICD-10) Dyspnea ?R06.00 - Dyspnea, unspecified (ICD-10) Elevated brain natriuretic peptide (BNP) level ?R79.89 - Other specified abnormal findings of blood chemistry (ICD-10) Hypertension ?I10 - Essential (primary) hypertension (ICD-10) Elevated troponin ?R79.89 - Other specified abnormal findings of blood chemistry (ICD-10) Acute dyspnea ?R06.00 - Dyspnea, unspecified (ICD-10) IBS (irritable bowel syndrome) ?K58.9 - Irritable bowel syndrome without diarrhea (ICD-10) Anxiety ?F41.9 - Anxiety disorder, unspecified (ICD-10) Heart attack ?I21.9 - Acute myocardial infarction, unspecified (ICD-10) Sciatic leg pain ?M54.30 - Sciatica, unspecified side (ICD-10) Herniated disc, cervical ?M50.20 - Other cervical disc displacement, unspecified cervical region (ICD- 10) Surgical History History of appendectomy ?Z90.49 - Acquired absence of other specified parts of digestive tract (ICD- 10) History of heart artery stent ?Z95.5 - Presence of coronary angioplasty implant and graft (ICD-10) Family History Mother Family history of CHF (congestive heart failure) Family history of hypertension Father Family history of CHF (congestive heart failure) Brother Family history of CHF (congestive heart failure) Other Family history of diabetes mellitus Family history of myocardial infarction Social History (Updated 10/11/23 @ 12:25 by Светлана Martell) Within the past year, how often did you have a drink containing alcohol: monthly or less Smoking status: Light tobacco smoker Nicotine containing products detail: 1 pack/week Non-prescribed substance use: cannabis (any form) Non-prescribed substance use details: smokes marijuana, gummies Highest level of school completed/degree received: high school graduate Are you now , , , , never or living with a partner: In a typical week, how many times do you talk on the telephone with family, friends, or neighbors: once per week How often do you get together with friends or relatives: never How often do you attend gnosticist or pentecostal services: 4 or more times per year Do you belong to any clubs or organizations such as gnosticist groups unions, fraternal or athletic groups, or school groups: no Total score: 1 Score interpretation: A score of less than or equal to 1 indicates the most socially isolated. Little interest or pleasure in doing things: several days Feeling down, depressed, or hopeless: several days Feel stressed/tense/nervous/anxious/difficulty sleeping: very much Life stressors: recent of family or friend Life stressor details: 2020 lost family Do you think of yourself as: straight/heterosexual Gender Identity: female Exam Narrative Exam Narrative: VITALS: I have reviewed the triage vital signs. GENERAL: Tearful 63-year-old female in no distress NEURO: Alert and oriented. Moves all extremities. Face is symmetric and expressive. EYES: PERRL. No scleral icterus or conjunctival injection. No discharge. HENT: Normocephalic, atraumatic. Hearing is grossly intact. Nares grossly patent and without discharge. Mucous membranes moist. NECK: No JVD. Patient moves neck without restriction. CARDIO: Rhythm regular. Normal rate. No murmur, rub, or gallop. Pulses equal bilaterally in the upper and lower extremity. No lower extremity edema. PULM: Lungs clear to auscultation in all esquivel. No wheezes, rales, or rhonchi. No conversational dyspnea. No splinting, stridor, or accessory muscle use. GI/: Abdomen is soft and non-tender. Normoactive bowel sounds. EXTREMITIES: Symmetric muscle bulk. No joint swelling. No clubbing, cyanosis, or deformity. SKIN: Warm and dry. Normal turgor. No rash or lesions appreciated. PSYCH: Anxious Constitutional Vital Signs, click to edit/add: Last Vital Signs Temp 98 F 12/12/23 16:03 Pulse 84 12/12/23 18:10 Resp 22 H 12/12/23 18:10 BP 113/83 12/12/23 16:03 Pulse Ox 98 12/12/23 16:03 O2 Del Method Room Air 12/12/23 16:03 Course Vital Signs Vital signs: Vital Signs Pulse Rate 93 H 12/12/23 16:00 Respiratory Rate 18 12/12/23 16:00 Temperature 98 F 12/12/23 16:03 Pulse Rate 84 12/12/23 18:10 Respiratory Rate 22 H 12/12/23 18:10 Blood Pressure 113/83 12/12/23 16:03 Pulse Oximetry 98 12/12/23 16:03 Oxygen Delivery Method Room Air 12/12/23 16:03 Medical Decision Making MDM Narrative Medical decision making narrative: Very anxious 63-year-old female to the emergency department with complaint of panic episode. Vital stable, patient is afebrile. She has no new complaints today but reported she had some chest pain on the way here today. Cardiac workup is initiated. Toradol and Tylenol for pain. Ativan is given for her panic episode. EKG atrial paced, no ischemic pattern, no STEMI, normal QTc. Lab work reviewed and noted. She does have an elevated troponin. I did review the trend over time. Her troponin today is consistent with all previous presentations. She has a chronically elevated troponin. I did review her previous cardiology notes as well. She had a recent echo in July in response to a mildly elevated troponin level. Will repeat troponin and EKG. Discussed findings with patient to decide best disposition. Care was signed out to Dr. Casiano. Medical Records Medical records reviewed: Yes I reviewed the patient's medical records Lab Data Lab results reviewed: Yes I reviewed the patient's lab results Labs: Lab Results 12/12/23 Range/Units 16:14 WBC 9.6 (4.0-11.0) 10^3/uL RBC 5.55 H (4.20-5.40) 10^6/uL Hgb 14.5 (12.0-16.0) g/dL Hct 45.4 (36.0-48.0) % MCV 81.8 (81.0-99.0) fL MCH 26.1 L (26.7-34.0) pg MCHC 31.9 (29.9-35.2) g/dL RDW 17.4 H (11.0-15.0) % Plt Count 368 (150-450) 10^3/uL MPV 9.6 (9.5-13.5) fL Neut % (Auto) 74.1 (43.0-75.0) % Lymph % (Auto) 18.8 L (20.5-60.0) % [place] % (Auto) 6.2 (1.7-12.0) % Eos % (Auto) 0.5 L (0.9-7.0) % Baso % (Auto) 0.2 (0.2-2.0) % Neut # (Auto) 7.1 H (1.4-6.5) 10^3/uL Lymph # (Auto) 1.8 (1.2-3.8) 10^3/uL [place] # (Auto) 0.6 (0.3-0.8) 10^3/uL Eos # (Auto) 0.1 (0.0-0.7) 10^3/uL Baso # (Auto) 0.0 (0.0-0.1) 10^3/uL Abs Immat Gran (auto) 0.02 (0.00-0.03) 10^3/uL Imm/Tot Granulo (auto) 0.2 (0.0-0.5) % Sodium 138 (136-145) mmol/L Potassium 3.8 (3.5-5.1) mmol/L Chloride 100 (98-107) mmol/L Carbon Dioxide 22.9 (21.0-32.0) mmol/L Anion Gap 18.9 BUN 14.0 (7.0-18.0) mg/dL Creatinine 0.84 (0.55-1.02) mg/dL Est GFR ( Amer) >60 (>=60) Est GFR (Non-Af Amer) >60 (>=60) BUN/Creatinine Ratio 16.7 Glucose 97 (74-106) mg/dL Calcium 9.7 (8.5-10.1) mg/dL Total Bilirubin 0.8 (0.2-1.0) mg/dL AST 27 (15-37) U/L ALT 24 (14-59) U/L Alkaline Phosphatase 87 (46-116) U/L Troponin I High Sens 82.6 H* (4.0-51.3) pg/mL Total Protein 7.4 (6.4-8.2) g/dL Albumin 3.9 (3.4-5.0) g/dL Globulin 3.5 g/dL Albumin/Globulin Ratio 1.1 Lipase 51.0 (16.0-77.0) U/L Imaging Data Chest x-ray: Radiologist's impression: ITS Impressions Chest X-Ray 12/12/23 16:05 IMPRESSION: No acute cardiopulmonary findings. Electronically authenticated by: PARAMJIT MANNING Date: 12/12/2023 17:39 ECG Data Attestation: I personally reviewed and interpreted this ECG as follows: Discharge Plan Discharge Chief Complaint: Anxiety Clinical Impression: Anxiety, Chest pain, Elevated troponin Patient Disposition: Still a Patient Prescriptions / Home Meds: No Action pantoprazole 40 mg tablet,delayed release (DR/EC) 40 mg PO DAILY albuterol sulfate 90 mcg/actuation HFA aerosol inhaler 1 puff INHALATION Q4H PRN (Reason: shortness of breath or wheezing) isosorbide mononitrate 30 mg Tablet Extended Release 24 Hr 30 mg PO QD Qty: 30 11RF carvedilol [Coreg] 12.5 mg tablet 12.5 mg PO BID Qty: 60 11RF Rx Instructions: must administer with a meal/food nitroglycerin 0.4 mg tablet, sublingual 0.4 mg sublingual Q5M MDD 3/day PRN (Reason: chest pain) Qty: 30 11RF Rx Instructions: do not exceed 3 doses per episode atorvastatin 80 mg tablet 80 mg PO DAILY alprazolam 1 mg tablet 1 mg PO BID clopidogrel 75 mg tablet 75 mg PO DAILY aspirin 81 mg tablet,delayed release (DR/EC) 81 mg PO DAILY buspirone 10 mg tablet 10 mg PO BID gabapentin 300 mg capsule 300 mg PO TID dapagliflozin propanediol [Farxiga] 10 mg tablet 10 mg PO DAILY trazodone 50 mg tablet 50 mg PO DAILY PRN (Reason: insomnia) levothyroxine 75 mcg Tablet 75 mcg PO ACB Qty: 30 11RF prednisone 10 mg tablet 50 mg PO DAILY Qty: 47 0RF Rx Instructions: 5/day for 3 days. 4/day for 3 days, 3/day for 3 days, 2/day for 3 days, 1/day for 3 days, 1/2 /day for 4 days levofloxacin 750 mg tablet 750 mg PO DAILY 10 Days Qty: 10 0RF promethazine-DM 6.25-15 mg/5 mL syrup 5 ml PO Q4H PRN (Reason: cough) Qty: 118 0RF Print Language: Lithuanian Referrals: Charlie Richardson MD [Primary Care Provider] - 1 week
[2023-12-12 16:40] LABS: Alanine Aminotransferase 24 U/L (14-59); Albumin Globulin Ratio 1.1; Albumin Level 3.9 g/dL (3.4-5.0); Alkaline Phosphatase 87 U/L (46-116); Anion Gap 18.9; Aspartate Amino Transferase 27 U/L (15-37); BUN Creatinine Ratio 16.7; Bilirubin Total 0.8 mg/dL (0.2-1.0); Calcium 9.7 mg/dL (8.5-10.1); Carbon Dioxide 22.9 mmol/L (21.0-32.0); Chloride 100 mmol/L (98-107); Estimated GFR (African America >60 (>=60); Estimated GFR (Non-African Ame >60 (>=60); Globulin 3.5 g/dL; Glucose 97 mg/dL (74-106); Potassium 3.8 mmol/L (3.5-5.1); Sodium 138 mmol/L (136-145); Total Protein 7.4 g/dL (6.4-8.2)
[2023-12-12 17:27] LABS: Troponin I High Sensitivity 82.6 pg/mL (4.0-51.3)
[2023-12-12] MEDS: OXYCODONE HCL 5 MG TABLET PO (18:12)
--- NOTE | 2023-12-12 18:17 | ECG_ITS ---
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
[2023-12-12 19:11] LABS: Troponin I High Sensitivity 75.8 pg/mL (4.0-51.3)
--- NOTE | 2023-12-12 19:23 | ED.GENADUL1 ---
HPI HPI - General Adult General Chief complaint: Anxiety Stated complaint: Anxiety Time Seen by Provider: 12/12/23 15:52 Source: patient Mode of arrival: ambulance Limitations: no limitations History of Present Illness HPI narrative: 63-year-old female presented to the emergency department and was initially evaluated by Dr. Martin and signed out to me after discussing the case with him thoroughly. Please see his full history and physical exam. Related Data Home Medications ?Medication ?Instructions ?Recorded ?Confirmed alprazolam 1 mg tablet 1 mg PO BID 06/10/23 10/11/23 aspirin 81 mg tablet,delayed 81 mg PO DAILY 06/10/23 10/11/23 release atorvastatin 80 mg tablet 80 mg PO DAILY 06/10/23 10/11/23 buspirone 10 mg tablet 10 mg PO BID 06/10/23 10/11/23 clopidogrel 75 mg tablet 75 mg PO DAILY 06/10/23 10/11/23 dapagliflozin propanediol 10 mg 10 mg PO DAILY 06/10/23 10/11/23 tablet (Farxiga) gabapentin 300 mg capsule 300 mg PO TID 06/10/23 10/11/23 trazodone 50 mg tablet 50 mg PO DAILY PRN insomnia 06/10/23 10/11/23 albuterol sulfate 90 mcg/actuation 1 puff inhalation Q4H PRN 06/29/23 10/11/23 aerosol inhaler shortness of breath or wheezing pantoprazole 40 mg tablet,delayed 40 mg PO DAILY 06/29/23 10/11/23 release Previous Rx's ?Medication ?Instructions ?Recorded levothyroxine 75 mcg tablet 75 mcg PO ACB #30 tabs 06/11/23 carvedilol 12.5 mg tablet (Coreg) 12.5 mg PO BID #60 tabs 08/23/23 isosorbide mononitrate 30 mg 30 mg PO QD #30 tabs 08/23/23 tablet,extended release 24 hr nitroglycerin 0.4 mg sublingual 0.4 mg sublingual Q5M PRN chest 08/23/23 tablet pain #30 tabs levofloxacin 750 mg tablet 750 mg PO DAILY 10 days #10 tabs 10/12/23 prednisone 10 mg tablet 50 mg (5 x 10 mg) PO DAILY #47 tabs 10/12/23 promethazine-DM 6.25 mg-15 mg/5 mL 5 ml PO Q4H PRN cough #118 mL 10/12/23 oral syrup Allergies Allergy/AdvReac Type Severity Reaction Status Date / Time No Known Drug Allergies Allergy Verified 08/20/23 21:47 Opioid HPI Opioid Management Most Recent Opioid Data: Last Pain Scale 5 10/12/23 11:13 Last Pain Intensity 0 10/11/23 16:32 Last MAR Pain Assessment 12/12/23 18:12 Last ORT Total Score 1 10/11/23 12:26 Last ORT Risk Category Low Risk 10/11/23 12:26 Ur Phencyclidine Scrn Negative (NEGATIVE) 06/10/23 09:30 [facility] Medical History (Updated 12/12/23 @ 19:23 by Jared Casiano MD) Acute exacerbation of chronic obstructive pulmonary disease ?J44.1 - Chronic obstructive pulmonary disease with (acute) exacerbation (ICD-10) Hypertensive emergency ?I16.1 - Hypertensive emergency (ICD-10) Acute gastroenteritis ?K52.9 - Noninfective gastroenteritis and colitis, unspecified (ICD-10) Hypoxemia ?R09.02 - Hypoxemia (ICD-10) Chest pain ?R07.9 - Chest pain, unspecified (ICD-10) Coronary artery disease ?I25.10 - Atherosclerotic heart disease of [place] coronary artery without angina pectoris (ICD-10) Elevated troponin ?R79.89 - Other specified abnormal findings of blood chemistry (ICD-10) Pneumonia ?J18.9 - Pneumonia, unspecified organism (ICD-10) Anxiety ?F41.9 - Anxiety disorder, unspecified (ICD-10) Acute kidney injury ?N17.9 - Acute kidney failure, unspecified (ICD-10) Acute anxiety ?F41.9 - Anxiety disorder, unspecified (ICD-10) Pacemaker ?Z95.0 - Presence of cardiac pacemaker (ICD-10) Iron deficiency anemia ?D50.9 - Iron deficiency anemia, unspecified (ICD-10) COPD (chronic obstructive pulmonary disease) ?J44.9 - Chronic obstructive pulmonary disease, unspecified (ICD-10) Hypoxia ?R09.02 - Hypoxemia (ICD-10) Dyspnea ?R06.00 - Dyspnea, unspecified (ICD-10) Elevated brain natriuretic peptide (BNP) level ?R79.89 - Other specified abnormal findings of blood chemistry (ICD-10) Hypertension ?I10 - Essential (primary) hypertension (ICD-10) Elevated troponin ?R79.89 - Other specified abnormal findings of blood chemistry (ICD-10) Acute dyspnea ?R06.00 - Dyspnea, unspecified (ICD-10) IBS (irritable bowel syndrome) ?K58.9 - Irritable bowel syndrome without diarrhea (ICD-10) Anxiety ?F41.9 - Anxiety disorder, unspecified (ICD-10) Heart attack ?I21.9 - Acute myocardial infarction, unspecified (ICD-10) Sciatic leg pain ?M54.30 - Sciatica, unspecified side (ICD-10) Herniated disc, cervical ?M50.20 - Other cervical disc displacement, unspecified cervical region (ICD-10) Surgical History History of appendectomy ?Z90.49 - Acquired absence of other specified parts of digestive tract (ICD-10) History of heart artery stent ?Z95.5 - Presence of coronary angioplasty implant and graft (ICD-10) Family History Mother Family history of CHF (congestive heart failure) Family history of hypertension Father Family history of CHF (congestive heart failure) Brother Family history of CHF (congestive heart failure) Other Family history of diabetes mellitus Family history of myocardial infarction Social History (Updated 10/11/23 @ 12:25 by Светлана Martell) Within the past year, how often did you have a drink containing alcohol: monthly or less Smoking status: Light tobacco smoker Nicotine containing products detail: 1 pack/week Non-prescribed substance use: cannabis (any form) Non-prescribed substance use details: smokes marijuana, gummies Highest level of school completed/degree received: high school graduate Are you now , , , , never or living with a partner: In a typical week, how many times do you talk on the telephone with family, friends, or neighbors: once per week How often do you get together with friends or relatives: never How often do you attend taoist or restoration services: 4 or more times per year Do you belong to any clubs or organizations such as taoist groups unions, fraternal or athletic groups, or school groups: no Total score: 1 Score interpretation: A score of less than or equal to 1 indicates the most socially isolated. Little interest or pleasure in doing things: several days Feeling down, depressed, or hopeless: several days Feel stressed/tense/nervous/anxious/difficulty sleeping: very much Life stressors: recent of family or friend Life stressor details: 2019 lost family Do you think of yourself as: straight/heterosexual Gender Identity: female Exam Constitutional Vital Signs, click to edit/add: Last Vital Signs Temp 98 F 12/12/23 16:03 Pulse 84 12/12/23 18:10 Resp 22 H 12/12/23 18:10 BP 113/83 12/12/23 16:03 Pulse Ox 98 12/12/23 16:03 O2 Del Method Room Air 12/12/23 16:03 Course Vital Signs Vital signs: Vital Signs Pulse Rate 93 H 12/12/23 16:00 Respiratory Rate 18 12/12/23 16:00 Temperature 98 F 12/12/23 16:03 Pulse Rate 84 12/12/23 18:10 Respiratory Rate 22 H 12/12/23 18:10 Blood Pressure 113/83 12/12/23 16:03 Pulse Oximetry 98 12/12/23 16:03 Oxygen Delivery Method Room Air 12/12/23 16:03 Medical Decision Making MDM Narrative Medical decision making narrative: Her workup is essentially negative. She has chronically elevated troponin. Today's first 1 was 82 and the repeat was 75. 2 EKGs showed no acute findings. She has no symptoms now and feels much better and she is able to be discharged home. I have no clinical suspicion of acute coronary syndrome. Heart score is 3 Differential Diagnosis Differential Diagnosis: Anxiety, unstable angina, myocardial infarction, pneumothorax, pneumonia Lab Data Lab results reviewed: Yes I reviewed the patient's lab results Labs: Lab Results 12/12/23 12/12/23 Range/Units 16:14 18:39 WBC 9.6 (4.0-11.0) 10^3/uL RBC 5.55 H (4.20-5.40) 10^6/uL Hgb 14.5 (12.0-16.0) g/dL Hct 45.4 (36.0-48.0) % MCV 81.8 (81.0-99.0) fL MCH 26.1 L (26.7-34.0) pg MCHC 31.9 (29.9-35.2) g/dL RDW 17.4 H (11.0-15.0) % Plt Count 368 (150-450) 10^3/uL MPV 9.6 (9.5-13.5) fL Neut % (Auto) 74.1 (43.0-75.0) % Lymph % (Auto) 18.8 L (20.5-60.0) % [place] % (Auto) 6.2 (1.7-12.0) % Eos % (Auto) 0.5 L (0.9-7.0) % Baso % (Auto) 0.2 (0.2-2.0) % Neut # (Auto) 7.1 H (1.4-6.5) 10^3/uL Lymph # (Auto) 1.8 (1.2-3.8) 10^3/uL [place] # (Auto) 0.6 (0.3-0.8) 10^3/uL Eos # (Auto) 0.1 (0.0-0.7) 10^3/uL Baso # (Auto) 0.0 (0.0-0.1) 10^3/uL Abs Immat Gran (auto) 0.02 (0.00-0.03) 10^3/uL Imm/Tot Granulo (auto) 0.2 (0.0-0.5) % Sodium 138 (136-145) mmol/L Potassium 3.8 (3.5-5.1) mmol/L Chloride 100 (98-107) mmol/L Carbon Dioxide 22.9 (21.0-32.0) mmol/L Anion Gap 18.9 BUN 14.0 (7.0-18.0) mg/dL Creatinine 0.84 (0.55-1.02) mg/dL Est GFR ( Amer) >60 (>=60) Est GFR (Non-Af Amer) >60 (>=60) BUN/Creatinine Ratio 16.7 Glucose 97 (74-106) mg/dL Calcium 9.7 (8.5-10.1) mg/dL Total Bilirubin 0.8 (0.2-1.0) mg/dL AST 27 (15-37) U/L ALT 24 (14-59) U/L Alkaline Phosphatase 87 (46-116) U/L Troponin I High Sens 82.6 H* 75.8 H* (4.0-51.3) pg/mL Total Protein 7.4 (6.4-8.2) g/dL Albumin 3.9 (3.4-5.0) g/dL Globulin 3.5 g/dL Albumin/Globulin Ratio 1.1 Lipase 51.0 (16.0-77.0) U/L Imaging Data Chest x-ray: Radiologist's impression: ITS Impressions Chest X-Ray 12/12/23 16:05 IMPRESSION: No acute cardiopulmonary findings. Electronically authenticated by: PARAMJIT MANNING Date: 12/12/2023 17:39 ECG Data Attestation: I personally reviewed and interpreted this ECG as follows: (2 EKGs on my interpretation showed paced rhythm without acute changes.) Discharge Plan Discharge Stand Alone Forms: Portal Instructions Chief Complaint: Anxiety Clinical Impression: Anxiety, Chest pain Patient Disposition: Home, Self-Care Time of Disposition Decision: 19:22 Condition: Good Mode of Transportation: Private Vehicle Prescriptions / Home Meds: No Action pantoprazole 40 mg tablet,delayed release (DR/EC) 40 mg PO DAILY albuterol sulfate 90 mcg/actuation HFA aerosol inhaler 1 puff INHALATION Q4H PRN (Reason: shortness of breath or wheezing) isosorbide mononitrate 30 mg Tablet Extended Release 24 Hr 30 mg PO QD Qty: 30 11RF carvedilol [Coreg] 12.5 mg tablet 12.5 mg PO BID Qty: 60 11RF Rx Instructions: must administer with a meal/food nitroglycerin 0.4 mg tablet, sublingual 0.4 mg sublingual Q5M MDD 3/day PRN (Reason: chest pain) Qty: 30 11RF Rx Instructions: do not exceed 3 doses per episode atorvastatin 80 mg tablet 80 mg PO DAILY alprazolam 1 mg tablet 1 mg PO BID clopidogrel 75 mg tablet 75 mg PO DAILY aspirin 81 mg tablet,delayed release (DR/EC) 81 mg PO DAILY buspirone 10 mg tablet 10 mg PO BID gabapentin 300 mg capsule 300 mg PO TID dapagliflozin propanediol [Farxiga] 10 mg tablet 10 mg PO DAILY trazodone 50 mg tablet 50 mg PO DAILY PRN (Reason: insomnia) levothyroxine 75 mcg Tablet 75 mcg PO ACB Qty: 30 11RF prednisone 10 mg tablet 50 mg PO DAILY Qty: 47 0RF Rx Instructions: 5/day for 3 days. 4/day for 3 days, 3/day for 3 days, 2/day for 3 days, 1/day for 3 days, 1/2 /day for 4 days levofloxacin 750 mg tablet 750 mg PO DAILY 10 Days Qty: 10 0RF promethazine-DM 6.25-15 mg/5 mL syrup 5 ml PO Q4H PRN (Reason: cough) Qty: 118 0RF Print Language: Georgian Instructions: Chest Pain (ED), Anxiety (ED) Additional Instructions: Follow-up with your editor map Referrals: Charlie Richardson MD [Primary Care Provider] - 1 week
== END 2023-12-12 19:50 | disposition home or self-care (01) ==
PROVIDERS: Student in an Organized Health Care Education/Training Program; Emergency Provider Emergency Medicine; PCP Family Medicine
DX: F41.9 Anxiety disorder, unspecified (principal); R07.9 Chest pain, unspecified; R79.89 Other specified abnormal findings of blood chemistry; F17.210 Nicotine dependence, cigarettes, uncomplicated
CPT/HCPCS: 36415; 71045; 80053; 83690; 84484; 85025; 93005; 96374; 99285; J1885

== ENCOUNTER 2024-05-04 05:59 | Inpatient (IN) | payer OTHER, SELFPAY ==
[2024-05-04] VITALS (17 sets, daily range): BP systolic 104–122; BP diastolic 62–91; PULSE 78–91; TEMP 36.4–37.1; O2SAT 87–98; BMI 24.3; BMI 23.5
--- OUTSIDE RECORDS SUMMARY | 2024-05-04 06:06 | XMS_ITS | CCD ---
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 Role Phone KEISHA DORADO JR Attending Unavailable PATRICIA CORDERO Primary Care Unavailable TAMIE FAJARDO Attending Unavailable UMAIR MANDUJANO Admitting Unavailable GASPER AVENDANO A Referring Unavailable ЕКАТЕРИНА ROBERT Primary Care Unavailable [...] MARRERO Consulting Unavailable KIM, BETINA Consulting Unavailable JAKOB .DR WILLAMS Consulting Unavailable JAKOB .DR WILLAMS Primary Care Unavailable IDRIS STORY Attending Unavailable IDRIS STORY Admitting Unavailable PRESTON SHELDON Consulting Unavailable DR ЕАКТЕРИНА CHARLES Consulting Unavailable JAKOB ., DR WILLAMS [...] Consulting Unavailable JAKOB .DR WILLAMS Consulting Unavailable JOSELINEY ., DR WILLAMS [...] Primary Care Unavailable MATTEO NGO Consulting Unavailable AHDOGRACIE VILLANUEVA Consulting Unavailable BACHRABENNY REESE Consulting Unavailable Arsenio Martin Attending Unavailable Arsenio Martin Attending Unavailable Bullimore, Magdalena Chaudhry Admitting Unavailable Bullimore, Magdalena Chaudhry Attending Unavailable Екатерина Robert M Primary Care Unavailable MARKER, SOCORRO J Referring Unavailable SCOTTY, HANI Admitting Unavailable CHADD ALCANTAR Attending Unavailable ARSENIO MARTIN Referring Unavailable DELBERT, UMAIR Admitting Unavailable GANGWANI, BARRETT LARSON Consulting Unavailab DANUTA Connors Attending Unavailable VINAY CHAPA Referring Unavailable DELBERT, UMAIR Attending Unavailable DELBERT, UMAIR Admitting Unavailable MERZA, NOORALDIN Referring Unavailable GANGWANI, MANESH LARSON Referring Unavailab le GANGWANI, MANESH LARSON Referring Unavailab le MERLE, LOREE Referring Unavailable DELBERT, UMAIR Referring Unavailable DELBERT, UMAIR Referring Unavailable SAMMIVINAY GUZMAN Referring Unavailable MERLE, LOREE Referring Unavailable ELTAHAWY, EHAB Attending Unavailable ROSALBA MOSS Referring Unavailable MERLE, LOREE Referring Unavailable MERZA, NOORALDIN Referring Unavailable Allergies Allergy Classification Reported Allergen(s) Allergy Type Date of Onset Reaction(s) Facility (1 source) bee venom Drug allergy (disorder) 1 [facility] Repository (1 source) house dust allergenic extract; 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: [HOUSE DUST] Drug Allergy 4 [facility] Repository (1 source) BEE VENOM PROTEIN (HONEY BEE); 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: [BEE VENOM PROTEIN (HONEY BEE)] Propensity to adverse reactions to drug (disorder) 4 [facility] Repository (1 source) HAY FEVER AND ALLERGY RELIEF; 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: [HAY FEVER AND ALLERGY RELIEF] Propensity to adverse reactions to drug (disorder) 4 [facility] Repository Medications Current Medications Medication Drug [...] oral solution (2 sources) alpha-Adrenergic Agonist, Uncompetitive B-wqhfbk-R-aspart ate Receptor Antagonist, Sigma-1 Agonist Start: 08-10-19 [...] day(s), # 14 tab(s), Refills(s) 0, Pharmacy: [facility] 1155, 170.2, cm, 08/09/22 13:13:00 EDT, [...] day(s), # 15 tab(s), Refills(s) 0, Pharmacy: [facility] 1155, 170.2, cm, 08/09/22 13:13:00 EDT, [...] disease (6 sources) Atherosclerotic heart disease of [place] coronary artery without angina pectoris; 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: [Old [...] 2 Chronic Other aftercare (1 source) Other longterm (current) drug therapy; 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: [OTH 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 DRUG THERAPY] Onset: 3 Episodic Other aftercare (1 source) senior care (current) use of aspirin; 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: [CARE HOME CURRENT USE OF ASPIRIN] Onset: 3 Episodic Other aftercare (1 source) senior care (current) use of antithrombotics/antipl atelets; 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: [CARE HOME ANTITHROMBOT/ANTIPLATL ETS] Onset: 3 Episodic Other aftercare (1 source) 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 Barriers to Discharge: Patient is medically ready for discharge at this time. AVS has been completed. Patient will discharge to home. No further OTM needs at this time. [facility] will continue to follow patient through [...] appropriate for patient?: Yes New Consults: Normal [facility] 30 The patient is Moderately Stable [...] improved Outcome: Progressing Normal [facility] BASIC METABOLIC PANELon 07-14 Anion gap [Moles/Vol] 13 mmol/L Normal 7-20 [facility] Comment on above: Performed By: #### L [id number] ####[facility] (BEAKER)[address] [place] [address] Calcium [Mass/Vol] 9.0 mg/dL Normal 8.6-10.3 [facility] Comment on above: Performed By: #### L [id number] ####[facility] (BEAKER)[address] [place] [address] Chloride [Moles/Vol] 97 mmol/L Low 98-107 [facility] Comment on above: Performed By: #### L [id number] ####[facility] (BEAKER)[address] [place] [address] CO2 [Moles/Vol] 29 mmol/L Normal 21-31 [facility] Comment on above: Performed By: #### L [id number] ####[facility] ([facility])[address] [place] [address] Creatinine [Mass/Vol] 1.06 mg/dL Normal 0.60-1.20 [facility] Comment on above: Performed By: #### L [id number] ####[facility] ([facility])[address] [place] [address] GLOMERULAR FILTRATION RATE ML/MIN/1.73 SQ M.PREDICTED 59.4 mL/min/1.73m*2 Low >60.0 [facility] Comment on above: Result Comment: The [facility]???s estimated glomerular filtration rate (eGFR) will [...] of individuals. Performed By: #### L [id number] ####[facility] ([facility])[address] [place] [address] Glucose [Mass/Vol] 178 mg/dL High 70-100 [facility] Comment on above: Performed By: #### L [id number] ####[facility] ([facility])[address] [address] Potassium [Moles/Vol] 4.3 mmol/L Normal 3.5-5.1 [facility] Comment on above: Performed By: #### L [id number] ####[facility] ([facility])[address] [place] [address] Sodium [Moles/Vol] 135 mmol/L Low 136-145 [facility] Comment on above: Performed By: #### L [id number] ####[facility] (BEAKER)[address] [place] [address] Urea nitrogen [Mass/Vol] 20 mg/dL Normal 7-25 [facility] Comment on above: Performed By: #### L [id number] ####[facility] (BEAKER)[address] [place] [address] UREA NITROGEN/CREATININE (MASS RATIO) IN SER/PLAS 18.9 Normal [facility] Comment on above: Performed By: #### L [id number] ####[facility] [place] [address] CBCon 08-11-2023 Erythrocyte distribution width (RBC) [Ratio] 17.0 % High 11.5-15.0 [facility] Comment on above: Performed By: #### L [id number] #### [facility] [address] [place] [address] ERYTHROCYTE MEAN CORPUSCULAR HEMOGLOBIN CONCENTRATION (G/DL) BY AUTOMATED 31.6 g/dL Low 32.0-35.0 [facility] Comment on above: Performed By: #### L [id number] #### [facility] [address] [place] [address] Hematocrit (Bld) [Volume fraction] 40.8 % Normal 36.0-48.0 [facility] Comment on above: Performed By: #### L [id number] #### [facility] (BEAKER) [address] [place] [address] Hemoglobin (Bld) [Mass/Vol] 12.9 g/dL Normal 12.0-15.0 [facility] Comment on above: Performed By: #### L [id number] #### [facility] (BEAKER) [address] [place] [address] MCH (RBC) [Entitic mass] 28.0 pg Normal 27.0-33.0 [facility] Comment on above: Performed By: #### L [id number] #### [facility] (BEAKER) [address] [place] [address] MCV (RBC) [Entitic vol] 88.5 fL Normal 82.0-98.0 [facility] Comment on above: Performed By: #### L [id number] #### [facility] ([facility]) [address] [place] [address] PLATELETS (10*3/UL) IN BLOOD AUTOMATED COUNT 239 10*3/uL Normal 150-400 [facility] Comment on above: Performed By: #### L [id number] #### [facility] ([facility]) [address] [place] [address] RBC (Bld) [#/Vol] 4.61 10*6/uL Normal 3.80-5.00 [facility] Comment on above: Performed By: #### L [id number] #### [facility] ([facility]) [address] [place] [address] WBC (Bld) [#/Vol] 7.21 10*3/uL Normal 4.00-10.60 [facility] Comment on above: Performed By: #### L [id number] #### [facility] ([facility]) [address] [place] [address] NURSNOTEon 08-11-2023 NURSNOTE Pt discharged via wheelchair without incident [facility] NURSNOTE AVS reviewed with patient, pt verifies understanding Normal [facility] 08-10-2023 30 The patient is Moderately Stable [...] improved Outcome: Progressing Normal [facility] HPon 08-10-2023 History Of Present Illness Vivian Vann is [...] initial encounter Reposition lead Loree Chance MD [facility] NURSNOTEon 08-10-2023 NURSNOTE CHG wipes and betadine nasal swabs completed. [facility] 07-13-2023 36 Pts phone line is no t working [facility] 07-12-2023 36 Unable to reach pt o r leave message, phone line not in service [facility] 36 Patients phone is no t in working order. Tried calling pts ER contact but it is a food pantry and was only a VM option. Did not leave message. [facility] 07-11-2023 30 The patient is Moderately Stable - Low risk of patient condition declining or worsening The patient's goals for the shift include pain control The clinical goals for the shift include maintain pacemaker precautions Over the shift, the patient did not make progress toward the following goals. Barriers to progression include na. Recommendations to address these barriers include na. [facility] 30 The patient is Moderately Stable - [...] function Outcome: Progressing Normal [facility] BASIC METABOLIC PANELon - Anion gap [Moles/Vol] 15 mmol/L Normal 7-20 [facility] Comment on above: Performed By: #### L [id number] #### [facility] ([facility]) [address] [place] [address] Calcium [Mass/Vol] 9.4 mg/dL Normal 8.6-10.3 [facility] Comment on above: Performed By: #### L [id number] #### [facility] (AKER) [address] [place] [address] Chloride [Moles/Vol] 97 mmol/L Low 98-107 [facility] Comment on above: Performed By: #### L [id number] #### [facility] (BEAKER) [address] [place] [address] CO2 [Moles/Vol] 27 mmol/L Normal 21-31 [facility] Comment on above: Performed By: #### L [id number] #### [facility] (AKER) [address] [place] [address] Creatinine [Mass/Vol] 1.15 mg/dL Normal 0.60-1.20 [facility] Comment on above: Performed By: #### L [id number] #### [facility] ([facility]) [address] [place] [address] GLOMERULAR FILTRATION RATE ML/MIN/1.73 SQ M.PREDICTED 53.9 mL/min/1.73m*2 Low >60.0 [facility] Comment on above: Result Comment: The [facility]???s estimated glomerular filtration rate (eGFR) will [...] individuals. Performed By: #### L [id number] #### [facility] ([facility]) [address] [place] [address] Glucose [Mass/Vol] 143 mg/dL High 70-100 [facility] Comment on above: Performed By: #### L [id number] #### [facility] ([facility]) [address] [place] [address] Potassium [Moles/Vol] 3.9 mmol/L Normal 3.5-5.1 [facility] Comment on above: Performed By: #### L [id number] #### [facility] ([facility]) [address] [place] [address] Sodium [Moles/Vol] 135 mmol/L Low 136-145 [facility] Comment on above: Performed By: #### L [id number] #### [facility] ([facility]) [address] [place] [address] Urea nitrogen [Mass/Vol] 32 mg/dL High 7-25 [facility] Comment on above: Performed By: #### L [id number] #### [facility] ([facility]) [address] [place] [address] UREA NITROGEN/CREATININE (MASS RATIO) IN SER/PLAS 27.8 Normal [facility] Comment on above: Performed By: #### L [id number] #### [facility] ([facility]) [address] [place] [address] CBC WITH AUTO DIFFERENTIALon 07-11-2023 Basophils (Bld) [#/Vol] 0.03 10*3/uL Normal 0.00-0.20 [facility] Comment on above: Performed By: #### L [id number] #### [facility] ([facility]) [address] [place] [address] Basophils/100 WBC (Bld) 0.3 % Normal 0.0-1.0 [facility] Comment on above: Performed By: #### L [id number] #### [facility] ([facility]) [address] [place] [address] Eosinophils (Bld) [#/Vol] 0.32 10*3/uL Normal 0.00-0.50 [facility] Comment on above: Performed By: #### L [id number] #### [facility] ([facility]) [address] [place] [address] Eosinophils/100 WBC (Bld) 2.8 % Normal 0.0-6.0 [facility] Comment on above: Performed By: #### L [id number] #### [facility] ([facility]) [address] [place] [address] Erythrocyte distribution width (RBC) [Ratio] 15.3 % High 11.5-15.0 [facility] Comment on above: Performed By: #### L [id number] #### [facility] ([facility]) [address] [place] [address] ERYTHROCYTE MEAN CORPUSCULAR HEMOGLOBIN CONCENTRATION (G/DL) BY AUTOMATED 32.0 g/dL Normal 32.0-35.0 [facility] Comment on above: Performed By: #### L [id number] #### [facility] [address] [place] [address] Hematocrit (Bld) [Volume fraction] 40.9 % Normal 36.0-48.0 [facility] Comment on above: Performed By: #### L [id number] #### [facility] (BEAKER) [address] [place] [address] Hemoglobin (Bld) [Mass/Vol] 13.1 g/dL Normal 12.0-15.0 [facility] Comment on above: Performed By: #### L [id number] #### [facility] ([facility]) [address] [place] [address] Immature granulocytes (Bld) [#/Vol] 0.04 10*3/uL Normal 0.00-0.20 [facility] Comment on above: Performed By: #### L [id number] #### [facility] ([facility]) [address] [place] [address] Immature granulocytes/100 WBC (Bld) 0.3 % Normal 0.0-1.0 [facility] Comment on above: Performed By: #### L [id number] #### [facility] ([facility]) [address] [place] [address] Lymphocytes (Bld) [#/Vol] 3.16 10*3/uL Normal 1.20-4.00 [facility] Comment on above: Performed By: #### L [id number] #### [facility] ([facility]) [address] [place] [address] Lymphocytes/100 WBC (Bld) 27.4 % Normal 20.0-45.0 [facility] Comment on above: Performed By: #### L [id number] #### [facility] [address] [place] [address] MCH (RBC) [Entitic mass] 27.9 pg Normal 27.0-33.0 [facility] Comment on above: Performed By: #### L [id number] #### [facility] (BEAKER) [address] [place] [address] MCV (RBC) [Entitic vol] 87.0 fL Normal 82.0-98.0 [facility] Comment on above: Performed By: #### L [id number] #### [facility] (BEAKER) [address] [place] [address] Monocytes (Bld) [#/Vol] 0.85 10*3/uL Normal 0.10-1.00 [facility] Comment on above: Performed By: #### L [id number] #### [facility] (BEAKER) [address] [place] [address] Monocytes/100 WBC (Bld) 7.4 % Normal 5.0-12.0 [facility] Comment on above: Performed By: #### L [id number] #### [facility] (BEAKER) [address] [place] [address] Neutrophils (Bld) [#/Vol] 7.12 10*3/uL Normal 1.60-7.60 [facility] Comment on above: Performed By: #### L [id number] #### [facility] ([facility]) [address] [place] [address] Neutrophils/100 WBC (Bld) 61.8 % Normal 40.0-72.0 [facility] Comment on above: Performed By: #### L [id number] #### [facility] ([facility]) [address] [place] [address] NRBC (PER 100 WBCS) BY AUTOMATED COUNT 0.0 % Normal 0 [facility] Comment on above: Performed By: #### L [id number] #### [facility] (BEAKER) [address] [place] [address] PLATELETS (10*3/UL) IN BLOOD AUTOMATED COUNT 339 10*3/uL Normal 150-400 [facility] Comment on above: Performed By: #### L [id number] #### [facility] (BEAKER) [address] [place] [address] RBC (Bld) [#/Vol] 4.70 10*6/uL Normal 3.80-5.00 [facility] Comment on above: Performed By: #### L [id number] #### [facility] (BEAKER) [address] [place] [address] WBC (Bld) [#/Vol] 11.52 10*3/uL High 4.00-10.60 [facility] Comment on above: Performed By: #### L [id number] #### [facility] (BEAKER) [address] [place] [address] 30on 07-10-2023 30 Problem: Pain - Adul [...] content not included)... Normal [facility] 30 Daily Case Managemen t Update [...] Management 07/06/23 1050 Normal [facility] 30 The patient is Moderately Stable [...] Flowsheets (Taken 07/09/2023 0750 by Emerald Curtis, RN) Free from fall injury: Assess patient frequently for physical needs Identify cognitive and physical deficits and behaviors that affect risk of falls [place] fall precautions as indicated by assessment Educate [...] improvement and discharge Normal [facility] BASIC METABOLIC PANELon - Anion gap [Moles/Vol] 13 mmol/L Normal 7-20 [facility] Comment on above: Performed By: #### L [id number] ####[facility] (BEAKER)[address] [place] [address] Calcium [Mass/Vol] 9.9 mg/dL Normal 8.6-10.3 [facility] Comment on above: Performed By: #### L [id number] ####[facility] (BEAKER)[address] [place] [address] Chloride [Moles/Vol] 97 mmol/L Low 98-107 [facility] Comment on above: Performed By: #### L [id number] ####[facility] (BEAKER)[address] [place] [address] CO2 [Moles/Vol] 30 mmol/L Normal 21-31 [facility] Comment on above: Performed By: #### L [id number] ####[facility] (BEAKER)[address] [place] [address] Creatinine [Mass/Vol] 1.06 mg/dL Normal 0.60-1.20 [facility] Comment on above: Performed By: #### L [id number] ####[facility] (BEAKER)[address] [place] [address] GLOMERULAR FILTRATION RATE ML/MIN/1.73 SQ M.PREDICTED 59.4 mL/min/1.73m*2 Low >60.0 [facility] Comment on above: Result Comment: The [facility]???s estimated glomerular filtration rate (eGFR) will [...] of individuals. Performed By: #### L [id number] ####[facility] ([facility])[address] [place] [address] Glucose [Mass/Vol] 139 mg/dL High 70-100 [facility] Comment on above: Performed By: #### L [id number] ####[facility] ([facility])[address] [place] [address] Potassium [Moles/Vol] 3.9 mmol/L Normal 3.5-5.1 [facility] Comment on above: Performed By: #### L [id number] ####[facility] ([facility])[address] [place] [address] Sodium [Moles/Vol] 136 mmol/L Normal 136-145 [facility] Comment on above: Performed By: #### L [id number] ####[facility] [place] [address] Urea nitrogen [Mass/Vol] 23 mg/dL Normal 7-25 [facility] Comment on above: Performed By: #### L [id number] ####[facility] [place] [address] UREA NITROGEN/CREATININE (MASS RATIO) IN SER/PLAS 21.7 Normal [facility] Comment on above: Performed By: #### L [id number] ####[facility] ([facility])[address] [place] [address] CBC WITH AUTO DIFFERENTIALon 07-10-2023 Basophils (Bld) [#/Vol] 0.02 10*3/uL Normal 0.00-0.20 [facility] Comment on above: Performed By: #### L [id number] ####[facility] (BEAKER)[address] [place] [address] Basophils/100 WBC (Bld) 0.2 % Normal 0.0-1.0 [facility] Comment on above: Performed By: #### L [id number] ####[facility] (BEAKER)[address] [place] [address] Eosinophils (Bld) [#/Vol] 0.53 10*3/uL High 0.00-0.50 [facility] Comment on above: Performed By: #### L [id number] ####[facility] (BEAKER)[address] [place] [address] Eosinophils/100 WBC (Bld) 5.0 % Normal 0.0-6.0 [facility] Comment on above: Performed By: #### L [id number] ####[facility] (BEAKER)[address] [place] [address] Erythrocyte distribution width (RBC) [Ratio] 15.3 % High 11.5-15.0 [facility] Comment on above: Performed By: #### L [id number] ####[facility] (BEAKER)[address] [place] [address] ERYTHROCYTE MEAN CORPUSCULAR HEMOGLOBIN CONCENTRATION (G/DL) BY AUTOMATED 32.9 g/dL Normal 32.0-35.0 [facility] Comment on above: Performed By: #### L [id number] ####[facility] [facility] (BEAKER)[address] [place] [address] Hematocrit (Bld) [Volume fraction] 42.6 % Normal 36.0-48.0 [facility] Comment on above: Performed By: #### L [id number] ####[facility] (BEAKER)[address] [place] [address] Hemoglobin (Bld) [Mass/Vol] 14.0 g/dL Normal 12.0-15.0 [facility] Comment on above: Performed By: #### L [id number] ####[facility] [place] [address] Immature granulocytes (Bld) [#/Vol] 0.02 10*3/uL Normal 0.00-0.20 [facility] Comment on above: Performed By: #### L [id number] ####[facility] ([facility])[address] [place] [address] Immature granulocytes/100 WBC (Bld) 0.2 % Normal 0.0-1.0 [facility] Comment on above: Performed By: #### L [id number] ####[facility] ([facility])[address] [place] [address] Lymphocytes (Bld) [#/Vol] 3.34 10*3/uL Normal 1.20-4.00 [facility] Comment on above: Performed By: #### L [id number] ####[facility] ([facility] [place] [address] Lymphocytes/100 WBC (Bld) 31.7 % Normal 20.0-45.0 [facility] Comment on above: Performed By: #### L [id number] ####[facility] ([facility] [place] [address] MCH (RBC) [Entitic mass] 28.3 pg Normal 27.0-33.0 [facility] Comment on above: Performed By: #### L [id number] ####[facility] ([facility] [place] [address] MCV (RBC) [Entitic vol] 86.2 fL Normal 82.0-98.0 [facility] Comment on above: Performed By: #### L [id number] ####[facility] (BEAKER)[address] [place] [address] Monocytes (Bld) [#/Vol] 0.60 10*3/uL Normal 0.10-1.00 [facility] Comment on above: Performed By: #### L [id number] ####[facility] ([facility] [place] [address] Monocytes/100 WBC (Bld) 5.7 % Normal 5.0-12.0 [facility] Comment on above: Performed By: #### L [id number] ####[facility] ([facility] [place] [address] Neutrophils (Bld) [#/Vol] 6.01 10*3/uL Normal 1.60-7.60 [facility] Comment on above: Performed By: #### L [id number] ####[facility] ([facility])[address] [place] [address] Neutrophils/100 WBC (Bld) 57.2 % Normal 40.0-72.0 [facility] Comment on above: Performed By: #### L [id number] ####[facility] ([facility])[address] [place] [address] NRBC (PER 100 WBCS) BY AUTOMATED COUNT 0.0 % Normal 0 [facility] Comment on above: Performed By: #### L [id number] ####[facility] ([facility])[address] [place] [address] PLATELETS (10*3/UL) IN BLOOD AUTOMATED COUNT 329 10*3/uL Normal 150-400 [facility] Comment on above: Performed By: #### L [id number] ####[facility] ([facility])[address] [place] [address] RBC (Bld) [#/Vol] 4.94 10*6/uL Normal 3.80-5.00 [facility] Comment on above: Performed By: #### L [id number] ####[facility] ([facility] [address] WBC (Bld) [#/Vol] 10.52 10*3/uL Normal 4.00-10.60 [facility] Comment on above: Performed By: #### L [id number] ####[facility] ([facility])[address] [place] [address] on 07-10-2023 History Of Present Illness Vivian [...] Problems: Junctional bradycardia Pacemaker Loree Chance MD [facility] 30on 07-09-2023 30 Problem: Cardiovascular - Adult [...] the shift include pacemaker placement without issues [facility] 30 Daily Case Managemen t Update Multidisciplinary [...] junctioal Level of Consultation Consultation and Management 02/23/24 1050 Normal [facility] BASIC METABOLIC PANELon 02-2 Anion gap [Moles/Vol] 9 mmol/L Normal 7-20 [facility] Comment on above: Performed By: #### L [id number] #### [facility] (BEAKER) [address] [place] [address] Calcium [Mass/Vol] 9.1 mg/dL Normal 8.6-10.3 [facility] Comment on above: Performed By: #### L [id number] #### [facility] ([facility] [address] [place] [address] Chloride [Moles/Vol] 99 mmol/L Normal 98-107 [facility] Comment on above: Performed By: #### L [id number] #### [facility] ([facility] [address] [place] [address] CO2 [Moles/Vol] 32 mmol/L High 21-31 [facility] Comment on above: Performed By: #### L [id number] #### [facility] (BEAKER) [address] [place] [address] Creatinine [Mass/Vol] 0.98 mg/dL Normal 0.60-1.20 [facility] Comment on above: Performed By: #### L [id number] #### [facility] ([facility] [address] [place] [address] GLOMERULAR FILTRATION RATE ML/MIN/1.73 SQ M.PREDICTED 65.3 mL/min/1.73m*2 Normal >60.0 [facility] Comment on above: Result Comment: The [facility]???s estimated glomerular filtration rate (eGFR) will [...] individuals. Performed By: #### L [id number] #### [facility] ([facility]) [address] [place] [address] Glucose [Mass/Vol] 131 mg/dL High 70-100 [facility] Comment on above: Performed By: #### L [id number] #### [facility] ([facility]) [address] [place] [address] Potassium [Moles/Vol] 4.3 mmol/L Normal 3.5-5.1 [facility] Comment on above: Performed By: #### L [id number] #### [facility] ([facility]) [address] [place] [address] Sodium [Moles/Vol] 136 mmol/L Normal 136-145 [facility] Comment on above: Performed By: #### L [id number] #### [facility] ([facility]) [address] [place] [address] Urea nitrogen [Mass/Vol] 23 mg/dL Normal 7-25 [facility] Comment on above: Performed By: #### L [id number] #### [facility] ([facility]) [address] [place] [address] UREA NITROGEN/CREATININE (MASS RATIO) IN SER/PLAS 23.5 Normal [facility] Comment on above: Performed By: #### L [id number] #### [facility] ([facility]) [address] [place] [address] CBC WITH AUTO DIFFERENTIALon 07-09-2023 Basophils (Bld) [#/Vol] 0.03 10*3/uL Normal 0.00-0.20 [facility] Comment on above: Performed By: #### L [id number] #### [facility] ([facility]) [address] [place] [address] Basophils/100 WBC (Bld) 0.3 % Normal 0.0-1.0 [facility] Comment on above: Performed By: #### L [id number] #### [facility] [address] [place] [address] Eosinophils (Bld) [#/Vol] 0.54 10*3/uL High 0.00-0.50 [facility] Comment on above: Performed By: #### L [id number] #### [facility] ([facility]) [address] [place] [address] Eosinophils/100 WBC (Bld) 4.9 % Normal 0.0-6.0 [facility] Comment on above: Performed By: #### L [id number] #### [facility] ([facility]) [address] [place] [address] Erythrocyte distribution width (RBC) [Ratio] 15.0 % Normal 11.5-15.0 [facility] Comment on above: Performed By: #### L [id number] #### [facility] ([facility]) [address] [place] [address] ERYTHROCYTE MEAN CORPUSCULAR HEMOGLOBIN CONCENTRATION (G/DL) BY AUTOMATED 32.8 g/dL Normal 32.0-35.0 [facility] Comment on above: Performed By: #### L [id number] #### [facility] ([facility]) [address] [place] [address] Hematocrit (Bld) [Volume fraction] 37.5 % Normal 36.0-48.0 [facility] Comment on above: Performed By: #### L [id number] #### [facility] ([facility]) [address] [place] [address] Hemoglobin (Bld) [Mass/Vol] 12.3 g/dL Normal 12.0-15.0 [facility] Comment on above: Performed By: #### L [id number] #### [facility] [address] [place] [address] Immature granulocytes (Bld) [#/Vol] 0.03 10*3/uL Normal 0.00-0.20 [facility] Comment on above: Performed By: #### L [id number] #### [facility] (BEAKER) [address] [place] [address] Immature granulocytes/100 WBC (Bld) 0.3 % Normal 0.0-1.0 [facility] Comment on above: Performed By: #### L [id number] #### [facility] [address] [place] [address] Lymphocytes (Bld) [#/Vol] 3.76 10*3/uL Normal 1.20-4.00 [facility] Comment on above: Performed By: #### L [id number] #### [facility] ([facility]) [address] [place] [address] Lymphocytes/100 WBC (Bld) 34.1 % Normal 20.0-45.0 [facility] Comment on above: Performed By: #### L [id number] #### [facility] ([facility]) [address] [place] [address] MCH (RBC) [Entitic mass] 28.5 pg Normal 27.0-33.0 [facility] Comment on above: Performed By: #### L [id number] #### [facility] ([facility]) [address] [place] [address] MCV (RBC) [Entitic vol] 87.0 fL Normal 82.0-98.0 [facility] Comment on above: Performed By: #### L [id number] #### [facility] ([facility]) [address] [place] [address] Monocytes (Bld) [#/Vol] 0.64 10*3/uL Normal 0.10-1.00 [facility] Comment on above: Performed By: #### L [id number] #### [facility] [address] [place] [address] Monocytes/100 WBC (Bld) 5.8 % Normal 5.0-12.0 [facility] Comment on above: Performed By: #### L [id number] #### [facility] ([facility]AKER) [address] [place] [address] Neutrophils (Bld) [#/Vol] 6.03 10*3/uL Normal 1.60-7.60 [facility] Comment on above: Performed By: #### L [id number] #### [facility] ([facility]) [address] [place] [address] Neutrophils/100 WBC (Bld) 54.6 % Normal 40.0-72.0 [facility] Comment on above: Performed By: #### L [id number] #### [facility] ([facility]) [address] [place] [address] NRBC (PER 100 WBCS) BY AUTOMATED COUNT 0.0 % Normal 0 [facility] Comment on above: Performed By: #### L [id number] #### [facility] ([facility]) [address] [place] [address] PLATELETS (10*3/UL) IN BLOOD AUTOMATED COUNT 285 10*3/uL Normal 150-400 [facility] Comment on above: Performed By: #### L [id number] #### [facility] ([facility]) [address] [place] [address] RBC (Bld) [#/Vol] 4.31 10*6/uL Normal 3.80-5.00 [facility] Comment on above: Performed By: #### L [id number] #### [facility] ([facility]) [address] [place] [address] WBC (Bld) [#/Vol] 11.03 10*3/uL High 4.00-10.60 [facility] Comment on above: Performed By: #### L [id number] #### [facility] ([facility]) [address] [place] [address] 30on 07-08-2023 30 The patient is Moderately [...] intake Outcome: Progressing Normal [facility] 30 Problem: Cardiovascular - Adult Goal: [...] include stable bp Normal [facility] BASIC METABOLIC PANELon 06-15 Anion gap [Moles/Vol] 10 mmol/L Normal 7-20 [facility] Comment on above: Performed By: #### L [id number] ####[facility] (BEAKER)[address] [place] [address] Calcium [Mass/Vol] 9.0 mg/dL Normal 8.6-10.3 [facility] Comment on above: Performed By: #### L [id number] ####[facility] (BEAKER)[address] [place] [address] Chloride [Moles/Vol] 97 mmol/L Low 98-107 [facility] Comment on above: Performed By: #### L [id number] ####[facility] (BEAKER)[address] [place] [address] CO2 [Moles/Vol] 33 mmol/L High 21-31 [facility] Comment on above: Performed By: #### L [id number] ####[facility] (BEAKER)[address] [place] [address] Creatinine [Mass/Vol] 1.30 mg/dL High 0.60-1.20 [facility] Comment on above: Performed By: #### L [id number] ####[facility] [place] [address] GLOMERULAR FILTRATION RATE ML/MIN/1.73 SQ M.PREDICTED 46.5 mL/min/1.73m*2 Low >60.0 [facility] Comment on above: Result Comment: The [facility]???s estimated glomerular filtration rate (eGFR) will [...] of individuals. Performed By: #### L [id number] ####[facility] ([facility])[address] [place] [address] Glucose [Mass/Vol] 214 mg/dL High 70-100 [facility] Comment on above: Performed By: #### L [id number] ####[facility] ([facility])[address] [place] [address] Potassium [Moles/Vol] 3.9 mmol/L Normal 3.5-5.1 [facility] Comment on above: Performed By: #### L [id number] ####[facility] ([facility])[address] [place] [address] Sodium [Moles/Vol] 136 mmol/L Normal 136-145 [facility] Comment on above: Performed By: #### L [id number] ####[facility] ([facility])[address] [place] [address] Urea nitrogen [Mass/Vol] 26 mg/dL High 7-25 [facility] Comment on above: Performed By: #### L [id number] ####[facility] ([facility])[address] [place] [address] UREA NITROGEN/CREATININE (MASS RATIO) IN SER/PLAS 20.0 Normal [facility] Comment on above: Performed By: #### L [id number] ####[facility] ([facility])[address] [place] [address] CBC WITH AUTO DIFFERENTIALon 07-08-2023 Basophils (Bld) [#/Vol] 0.04 10*3/uL Normal 0.00-0.20 [facility] Comment on above: Performed By: #### L [id number] #### [facility] ([facility]) [address] [place] [address] Basophils/100 WBC (Bld) 0.3 % Normal 0.0-1.0 [facility] Comment on above: Performed By: #### L [id number] #### [facility] ([facility]) [address] [place] [address] Eosinophils (Bld) [#/Vol] 0.51 10*3/uL High 0.00-0.50 [facility] Comment on above: Performed By: #### L [id number] #### [facility] ([facility]) [address] [place] [address] Eosinophils/100 WBC (Bld) 4.1 % Normal 0.0-6.0 [facility] Comment on above: Performed By: #### L [id number] #### [facility] ([facility]) [address] [place] [address] Erythrocyte distribution width (RBC) [Ratio] 15.0 % Normal 11.5-15.0 [facility] Comment on above: Performed By: #### L [id number] #### [facility] ([facility]) [address] [place] [address] ERYTHROCYTE MEAN CORPUSCULAR HEMOGLOBIN CONCENTRATION (G/DL) BY AUTOMATED 31.9 g/dL Low 32.0-35.0 [facility] Comment on above: Performed By: #### L [id number] #### [facility] [address] [place] [address] Hematocrit (Bld) [Volume fraction] 37.9 % Normal 36.0-48.0 [facility] Comment on above: Performed By: #### L [id number] #### [facility] [address] [place] [address] Hemoglobin (Bld) [Mass/Vol] 12.1 g/dL Normal 12.0-15.0 [facility] Comment on above: Performed By: #### L [id number] #### [facility] ([facility]) [address] [place] [address] Immature granulocytes (Bld) [#/Vol] 0.04 10*3/uL Normal 0.00-0.20 [facility] Comment on above: Performed By: #### L [id number] #### [facility] ([facility]) [address] [place] [address] Immature granulocytes/100 WBC (Bld) 0.3 % Normal 0.0-1.0 [facility] Comment on above: Performed By: #### L [id number] #### [facility] ([facility]) [address] [place] [address] Lymphocytes (Bld) [#/Vol] 4.00 10*3/uL Normal 1.20-4.00 [facility] Comment on above: Performed By: #### L [id number] #### [facility] ([facility]) [address] [place] [address] Lymphocytes/100 WBC (Bld) 32.1 % Normal 20.0-45.0 [facility] Comment on above: Performed By: #### L [id number] #### [facility] [address] [address] MCH (RBC) [Entitic mass] 28.1 pg Normal 27.0-33.0 [facility] Comment on above: Performed By: #### L [id number] #### [facility] (BEAKER) [address] [place] [address] MCV (RBC) [Entitic vol] 87.9 fL Normal 82.0-98.0 [facility] Comment on above: Performed By: #### L [id number] #### [facility] ([facility]AKER) [address] [place] [address] Monocytes (Bld) [#/Vol] 0.85 10*3/uL Normal 0.10-1.00 [facility] Comment on above: Performed By: #### L [id number] #### [facility] (BEAKER) [address] [place] [address] Monocytes/100 WBC (Bld) 6.8 % Normal 5.0-12.0 [facility] Comment on above: Performed By: #### L [id number] #### [facility] (BEAKER) [address] [place] [address] Neutrophils (Bld) [#/Vol] 7.02 10*3/uL Normal 1.60-7.60 [facility] Comment on above: Performed By: #### L [id number] #### [facility] [address] [place] [address] Neutrophils/100 WBC (Bld) 56.4 % Normal 40.0-72.0 [facility] Comment on above: Performed By: #### L [id number] #### [facility] ([facility]) [address] [place] [address] NRBC (PER 100 WBCS) BY AUTOMATED COUNT 0.0 % Normal 0 [facility] Comment on above: Performed By: #### L [id number] #### [facility] (BEAKER) [address] [place] [address] PLATELETS (10*3/UL) IN BLOOD AUTOMATED COUNT 301 10*3/uL Normal 150-400 [facility] Comment on above: Performed By: #### L [id number] #### [facility] (BEAKER) [address] [place] [address] RBC (Bld) [#/Vol] 4.31 10*6/uL Normal 3.80-5.00 [facility] Comment on above: Performed By: #### L [id number] #### [facility] (BEAKER) [address] [place] [address] WBC (Bld) [#/Vol] 12.46 10*3/uL High 4.00-10.60 [facility] Comment on above: Performed By: #### L [id number] #### [facility] ([facility]ER) [address] [place] [address] 30on 07-07-2023 30 The patient is Moderately Stable - Low risk of patient condition declining or worsening The patient's goals for the shift include comfort The clinical goals for the shift include vss Normal [facility] 30 Problem: Cardiovascular - Adult Goal: [...] content not included)... Normal [facility] BASIC METABOLIC PANELon 02-2 4-2024 Anion gap [Moles/Vol] 12 mmol/L Normal 7-20 [facility] Comment on above: Performed By: #### L [id number] #### [facility] ([facility]) [address] [place] [address] Calcium [Mass/Vol] 9.2 mg/dL Normal 8.6-10.3 [facility] Comment on above: Performed By: #### L [id number] #### [facility] ([facility]) [address] [place] [address] Chloride [Moles/Vol] 97 mmol/L Low 98-107 [facility] Comment on above: Performed By: #### L [id number] #### [facility] ([facility]) [address] [place] [address] CO2 [Moles/Vol] 31 mmol/L Normal 21-31 [facility] Comment on above: Performed By: #### L [id number] #### [facility] ([facility]) [address] [place] [address] Creatinine [Mass/Vol] 1.06 mg/dL Normal 0.60-1.20 [facility] Comment on above: Performed By: #### L [id number] #### [facility] ([facility]) [address] [place] [address] GLOMERULAR FILTRATION RATE ML/MIN/1.73 SQ M.PREDICTED 59.4 mL/min/1.73m*2 Low >60.0 [facility] Comment on above: Result Comment: The [facility]???s estimated glomerular filtration rate (eGFR) will [...] individuals. Performed By: #### L [id number] #### [facility] ([facility]) [address] [place] [address] Glucose [Mass/Vol] 119 mg/dL High 70-100 [facility] Comment on above: Performed By: #### L [id number] #### [facility] ([facility]) [address] [place] [address] Potassium [Moles/Vol] 4.6 mmol/L Normal 3.5-5.1 [facility] Comment on above: Performed By: #### L [id number] #### [facility] ([facility]) [address] [place] [address] Sodium [Moles/Vol] 135 mmol/L Low 136-145 [facility] Comment on above: Performed By: #### L [id number] #### [facility] ([facility]) [address] [place] [address] Urea nitrogen [Mass/Vol] 21 mg/dL Normal 7-25 [facility] [facility] Comment on above: Performed By: #### L [id number] #### [facility] ([facility]) [address] [place] [address] UREA NITROGEN/CREATININE (MASS RATIO) IN SER/PLAS 19.8 Normal [facility] Comment on above: Performed By: #### L [id number] #### [facility] ([facility]) [address] [place] [address] CBC WITH AUTO DIFFERENTIALon 07-07-2023 Basophils (Bld) [#/Vol] 0.05 10*3/uL Normal 0.00-0.20 [facility] Comment on above: Performed By: #### L [id number] #### [facility] ([facility]) [address] [place] [address] Basophils/100 WBC (Bld) 0.3 % Normal 0.0-1.0 [facility] Comment on above: Performed By: #### L [id number] #### [facility] ([facility]) [address] [place] [address] Eosinophils (Bld) [#/Vol] 0.38 10*3/uL Normal 0.00-0.50 [facility] Comment on above: Performed By: #### L [id number] #### [facility] ([facility]) [address] [place] [address] Eosinophils/100 WBC (Bld) 2.5 % Normal 0.0-6.0 [facility] Comment on above: Performed By: #### L [id number] #### [facility] [address] [place] [address] Erythrocyte distribution width (RBC) [Ratio] 15.5 % High 11.5-15.0 [facility] Comment on above: Performed By: #### L [id number] #### [facility] [address] [place] [address] ERYTHROCYTE MEAN CORPUSCULAR HEMOGLOBIN CONCENTRATION (G/DL) BY AUTOMATED 32.0 g/dL Normal 32.0-35.0 [facility] Comment on above: Performed By: #### L [id number] #### [facility] ([facility]) [address] [place] [address] Hematocrit (Bld) [Volume fraction] 38.8 % Normal 36.0-48.0 [facility] Comment on above: Performed By: #### L [id number] #### [facility] ([facility]) [address] [place] [address] Hemoglobin (Bld) [Mass/Vol] 12.4 g/dL Normal 12.0-15.0 [facility] Comment on above: Performed By: #### L [id number] #### [facility] ([facility]) [address] [place] [address] Immature granulocytes (Bld) [#/Vol] 0.05 10*3/uL Normal 0.00-0.20 [facility] Comment on above: Performed By: #### L [id number] #### [facility] ([facility]) [address] [place] [address] Immature granulocytes/100 WBC (Bld) 0.3 % Normal 0.0-1.0 [facility] Comment on above: Performed By: #### L [id number] #### [facility] [address] [place] [address] Lymphocytes (Bld) [#/Vol] 3.99 10*3/uL Normal 1.20-4.00 [facility] Comment on above: Performed By: #### L [id number] #### [facility] ([facility]) [address] [place] [address] Lymphocytes/100 WBC (Bld) 26.5 % Normal 20.0-45.0 [facility] Comment on above: Performed By: #### L [id number] #### [facility] ([facility]) [address] [place] [address] MCH (RBC) [Entitic mass] 27.9 pg Normal 27.0-33.0 [facility] Comment on above: Performed By: #### L [id number] #### [facility] ([facility]) [address] [place] [address] MCV (RBC) [Entitic vol] 87.4 fL Normal 82.0-98.0 [facility] Comment on above: Performed By: #### L [id number] #### [facility] [address] [place] [address] Monocytes (Bld) [#/Vol] 1.25 10*3/uL High 0.10-1.00 [facility] Comment on above: Performed By: #### L [id number] #### [facility] [address] [address] Monocytes/100 WBC (Bld) 8.3 % Normal 5.0-12.0 [facility] Comment on above: Performed By: #### L [id number] #### [facility] ([facility]) [address] [place] [address] Neutrophils (Bld) [#/Vol] 9.31 10*3/uL High 1.60-7.60 [facility] Comment on above: Performed By: #### L [id number] #### [facility] ([facility]) [address] [place] [address] Neutrophils/100 WBC (Bld) 62.1 % Normal 40.0-72.0 [facility] Comment on above: Performed By: #### L [id number] #### [facility] ([facility]) [address] [address] NRBC (PER 100 WBCS) BY AUTOMATED COUNT 0.0 % Normal 0 [facility] Comment on above: Performed By: #### L [id number] #### [facility] ([facility]) [address] [place] [address] PLATELETS (10*3/UL) IN BLOOD AUTOMATED COUNT 300 10*3/uL Normal 150-400 [facility] Comment on above: Performed By: #### L [id number] #### [facility] ([facility]) [address] [place] [address] RBC (Bld) [#/Vol] 4.44 10*6/uL Normal 3.80-5.00 [facility] Comment on above: Performed By: #### L [id number] #### [facility] ([facility]) [address] [address] WBC (Bld) [#/Vol] 15.03 10*3/uL High 4.00-10.60 [facility] Comment on above: Performed By: #### L [id number] #### [facility] ([facility]) [address] [place] [address] MAGNESIUMon 07-07-2023 Magnesium [Mass/Vol] 2.3 mg/dL Normal 1.9-2.7 [facility] Comment on above: Performed By: #### L [id number] ####[facility] ([facility])[address] [place] [address] 30on 07-06-2023 30 Daily Case Managemen t [...] Management 07/06/23 1050 Normal [facility] 30 The patient is Moderately Stable [...] improved Outcome: Progressing Normal [facility] 30 The patient is Moderately Stable - Low risk of patient condition declining or worsening The patient's goals for the shift include comfort The clinical goals for the shift include VSS Normal [facility] 30 The patient is Moderately Stable - Low risk of patient condition declining or worsening The patient's goals for the shift include comfort The clinical goals for the shift include VSS Normal [facility] APTTon 07-06-2023 ACTIVATED PARTIAL THROMBOPLASTIN TIME IN PPP BY COAGULATION ASSAY 25.3 Seconds Normal 25.0-35.0 [facility] Comment on above: Result Comment: Clin ical significance of the APTT is questionable in the presence of heparin. Performed By: #### L [id number] #### [facility] ([facility]) [address] [place] [address] B-TYPE NATRIURETIC PEPTIDEon 07-06-2023 Natriuretic peptide B (Bld) [Mass/Vol] 721 pg/mL High 0-100 [facility] Comment on above: Performed By: #### L [id number] #### [facility] ([facility]) [address] [address] BLOOD CULTUREon 07-06-2023 Bacteria identified Cx Nom (Bld) No growth at 5 days Normal [facility] Comment on above: Performed By: #### L [id number] ####[facility] ([facility])[address] [place] [address] Order Comment: From a different site than #1. Performed By: #### L [id number] #### [facility] ([facility]) [address] [place] [address] CBC WITH AUTO DIFFERENTIALon 07-06-2023 Basophils (Bld) [#/Vol] 0.03 10*3/uL Normal 0.00-0.20 [facility] Comment on above: Performed By: #### L [id number] #### [facility] ([facility]) [address] [place] [address] Basophils/100 WBC (Bld) 0.2 % Normal 0.0-1.0 [facility] Comment on above: Performed By: #### L [id number] #### [facility] ([facility]) [address] [place] [address] Eosinophils (Bld) [#/Vol] 0.11 10*3/uL Normal 0.00-0.50 [facility] Comment on above: Performed By: #### L [id number] #### [facility] ([facility]) [address] [place] [address] Eosinophils/100 WBC (Bld) 0.8 % Normal 0.0-6.0 [facility] Comment on above: Performed By: #### L [id number] #### [facility] ([facility]) [address] [place] [address] Erythrocyte distribution width (RBC) [Ratio] 15.1 % High 11.5-15.0 [facility] Comment on above: Performed By: #### L [id number] #### [facility] ([facility]) [address] [place] [address] ERYTHROCYTE MEAN CORPUSCULAR HEMOGLOBIN CONCENTRATION (G/DL) BY AUTOMATED 32.3 g/dL Normal 32.0-35.0 [facility] Comment on above: Performed By: #### L [id number] #### [facility] ([facility]) [address] [place] [address] Hematocrit (Bld) [Volume fraction] 39.0 % Normal 36.0-48.0 [facility] Comment on above: Performed By: #### L [id number] #### [facility] ([facility]) [address] [address] Hemoglobin (Bld) [Mass/Vol] 12.6 g/dL Normal 12.0-15.0 [facility] Comment on above: Performed By: #### L [id number] #### [facility] ([facility]) [address] [place] [address] Immature granulocytes (Bld) [#/Vol] 0.04 10*3/uL Normal 0.00-0.20 [facility] Comment on above: Performed By: #### L [id number] #### [facility] ([facility]) [address] [address] Immature granulocytes/100 WBC (Bld) 0.3 % Normal 0.0-1.0 [facility] Comment on above: Performed By: #### L [id number] #### [facility] [address] [address] Lymphocytes (Bld) [#/Vol] 2.75 10*3/uL Normal 1.20-4.00 [facility] Comment on above: Performed By: #### L [id number] #### [facility] ([facility]) [address] [place] [address] Lymphocytes/100 WBC (Bld) 19.1 % Low 20.0-45.0 [facility] Comment on above: Performed By: #### L [id number] #### [facility] ([facility]) [address] [place] [address] MCH (RBC) [Entitic mass] 27.9 pg Normal 27.0-33.0 [facility] Comment on above: Performed By: #### L [id number] #### [facility] ([facility]) [address] [place] [address] MCV (RBC) [Entitic vol] 86.5 fL Normal 82.0-98.0 [facility] Comment on above: Performed By: #### L [id number] #### [facility] ([facility]) [address] [place] [address] Monocytes (Bld) [#/Vol] 1.31 10*3/uL High 0.10-1.00 [facility] Comment on above: Performed By: #### L [id number] #### [facility] ([facility]) [address] [place] [address] Monocytes/100 WBC (Bld) 9.1 % Normal 5.0-12.0 [facility] Comment on above: Performed By: #### L [id number] #### [facility] ([facility]) [address] [place] [address] Neutrophils (Bld) [#/Vol] 10.18 10*3/uL High 1.60-7.60 [facility] Comment on above: Performed By: #### L [id number] #### [facility] ([facility]) [address] [place] [address] Neutrophils/100 WBC (Bld) 70.5 % Normal 40.0-72.0 [facility] Comment on above: Performed By: #### L [id number] #### [facility] ([facility]) [address] [place] [address] NRBC (PER 100 WBCS) BY AUTOMATED COUNT 0.0 % Normal 0 [facility] Comment on above: Performed By: #### L [id number] #### [facility] ([facility]) [address] [place] [address] PLATELETS (10*3/UL) IN BLOOD AUTOMATED COUNT 321 10*3/uL Normal 150-400 [facility] Comment on above: Performed By: #### L [id number] #### [facility] ([facility]) [address] [place] [address] RBC (Bld) [#/Vol] 4.51 10*6/uL Normal 3.80-5.00 [facility] Comment on above: Performed By: #### L [id number] #### [facility] ([facility]) [address] [place] [address] WBC (Bld) [#/Vol] 14.42 10*3/uL High 4.00-10.60 [facility] Comment on above: Performed By: #### L [id number] #### [facility] ([facility]) [address] [place] [address] CKon 07-06-2023 CREATINE KINASE (U/L) IN SER/PLAS 36.0 U/L Normal 30.0-223.0 [facility] Comment on above: Performed By: #### L [id number] #### [facility] ([facility]) [address] [place] [address] COMPREHENSIVE METABOLIC PANE Pollo 07-06-2023 Albumin [Mass/Vol] 4.6 g/dL Normal 3.5-5.7 [facility] Comment on above: Performed By: #### L [id number] #### [facility] [address] [place] [address] ALP [Catalytic activity/Vol] 47 U/L Normal 34-104 [facility] Comment on above: Performed By: #### L [id number] #### [facility] ([facility]) [address] [place] [address] ALT [Catalytic activity/Vol] 13 U/L Normal 7-52 [facility] Comment on above: Performed By: #### L [id number] #### [facility] ([facility]) [address] [place] [address] Anion gap [Moles/Vol] 14 mmol/L Normal 7-20 [facility] Comment on above: Performed By: #### L [id number] #### [facility] ([facility]) [address] [place] [address] AST [Catalytic activity/Vol] 17 U/L Normal 13-39 [facility] Comment on above: Performed By: #### L [id number] #### [facility] [address] [place] [address] Bilirubin [Mass/Vol] 0.5 mg/dL Normal 0.3-1.0 [facility] Comment on above: Performed By: #### L [id number] #### [facility] [address] [place] [address] Calcium [Mass/Vol] 8.9 mg/dL Normal 8.6-10.3 [facility] Comment on above: Performed By: #### L [id number] #### [facility] ([facility]) [address] [place] [address] Chloride [Moles/Vol] 98 mmol/L Normal 98-107 [facility] Comment on above: Performed By: #### L [id number] #### [facility] ([facility]) [address] [place] [address] CO2 [Moles/Vol] 28 mmol/L Normal 21-31 [facility] Comment on above: Performed By: #### L [id number] #### [facility] ([facility]) [address] [place] [address] Creatinine [Mass/Vol] 1.23 mg/dL High 0.60-1.20 [facility] Comment on above: Performed By: #### L [id number] #### [facility] ([facility]) [address] [place] [address] GLOMERULAR FILTRATION RATE ML/MIN/1.73 SQ M.PREDICTED 49.7 mL/min/1.73m*2 Low >60.0 [facility] Comment on above: Result Comment: The [facility]???s estimated glomerular filtration rate (eGFR) will [...] individuals. Performed By: #### L [id number] #### [facility] ([facility]) [address] [place] [address] Glucose [Mass/Vol] 119 mg/dL High 70-100 [facility] Comment on above: Performed By: #### L [id number] #### [facility] ([facility]) [address] [place] [address] Potassium [Moles/Vol] 4.6 mmol/L Normal 3.5-5.1 [facility] Comment on above: Performed By: #### L [id number] #### [facility] ([facility]) [address] [place] [address] Protein [Mass/Vol] 6.8 g/dL Normal 6.0-8.3 [facility] Comment on above: Performed By: #### L [id number] #### [facility] ([facility]) [address] [place] [address] Sodium [Moles/Vol] 135 mmol/L Low 136-145 [facility] Comment on above: Performed By: #### L [id number] #### [facility] ([facility]) [address] [place] [address] Urea nitrogen [Mass/Vol] 23 mg/dL Normal 7-25 [facility] Comment on above: Performed By: #### L [id number] #### [facility] ([facility]) [address] [place] [address] UREA NITROGEN/CREATININE (MASS RATIO) IN SER/PLAS 18.7 Normal [facility] Comment on above: Performed By: #### L [id number] #### [facility] ([facility]) [address] [place] [address] CONSULTon 07-06-2023 CONSULT - Attestation signed by [...] of bradycardia. Patient has been transferred to [facility] for consideration of pacemaker placement. As [...] -- -- 7 (more content not included)... [facility] ED Clinical Summaryon 2023 ED Clinical Summary [address] [address] ED Clinical Summary Person Information Name: VIVIAN VANN/[place] Age: 63 Years : 1960 Sex: Female Language: Macanese PCP: Екатерина Robert MD Marital Status: Phone: [...] 07/05/2023 22:16:25 07/05/2023 22:16:25 07/05/2023 22:16:25 ADDRESS: [facility] [id number] PHYS DOC NOTES: MEDICAL INFORMATION: Prescriptions Given: [...] 4:CHF (congestive heart failure) Normal [facility] ED Patient Education Noteon 07-06-2023 ED Patient Education Note Normal [facility] ED Patient Summaryon 024 ED Patient Summary [address] [address] Patient Discharge Instructions Person Information Name: VIVIAN VANN Age: 63 Years Arrival Date: 07/05/2023 15:01:40 Discharge Diagnosis: 1:Atrial fibrillation with slow ventricular response; 2:Elevated troponin; 3:Tobacco abuse; 4:CHF (congestive heart failure) Primary Care Physician: Екатерина Robert MD Provider Information Primary Provider: Arsenio Martin DO Advanced Clinical Faculty:None The exam and treatment you received in the Emergency Department were for an urgent problem and are not intended as complete care. It is important that you follow up with a doctor, nurse practitioner, or physician?s funeral home assistant for ongoing care. If your symptoms [...] opioids can be used to help relieve lvmbcqrb-ne-wbxyhs pain and are often prescribed following a [...] be struggling with addiction, tell your health cattle care worker and ask for guidance or call [employer]?S National Helpline at 2-854-525-HELP. v Source: [place] Department of Health and Human Services/Center for Disease Control & Preve (more content not included)... Normal [facility] ETHANOLon 07-06-2023 ETHANOL (MG/DL) IN SER/PLAS <10 Normal [facility] Comment on above: Performed By: #### L [id number] ####[facility] ([facility]ER)[address] [place] [address] ETHANOL CALCULATED (%) Normal [facility] Comment on above: Performed By: #### L [id number] ####[facility] (BEAKER)[address] [place] [address] HEMOGLOBIN A1Con 07-06-2023 Glucose [Mass/Vol] 148 mg/dL Normal [facility] Comment on above: Performed By: #### L [id number] #### [facility] ([facility]) [address] [place] [address] HbA1c (Bld) [Mass fraction] 6.8 % High 4.0-6.0 [facility] Comment on above: Performed By: #### L [id number] #### [facility] [address] [place] [address] LACTIC ACID WITH 4 HOUR REFL EXon 07-06-2023 LACTATE (MMOL/L) IN SER/PLAS 1.8 mmol/L Normal 0.5-2.2 [facility] Comment on above: Performed By: #### L [id number] ####[facility] ([facility]AKER)[address] [place] [address] LIPID PANELon 07-06-2023 CHOL/HDL 3.0 mg/dL Normal [facility] Comment on above: Performed By: #### L [id number] #### [facility] ([facility]) [address] [place] [address] Cholesterol [Mass/Vol] 143 mg/dL Normal 120-200 [facility] Comment on above: Performed By: #### L [id number] #### [facility] ([facility]) [address] [place] [address] Magnesium [Mass/Vol] 159 mg/dL High 40-149 [facility] Comment on above: Result Comment: TRIG LYCERIDE REFERENCE RANGE: 20 YEARS AND OLDER CARDIOVASCULAR RISK LESS THAN 150 mg/dL LOW RISK 150 TO 199 mg/dL BORDERLINE RISK 200 mg/dL AND GREATER HIGH RISK Performed By: #### L [id number] #### [facility] ([facility]) [address] [place] [address] Magnesium [Mass/Vol] 63 mg/dL Normal 0-160 [facility] Comment on above: Performed By: #### L [id number] #### [facility] ([facility]) [address] [place] [address] Magnesium [Mass/Vol] 48 mg/dL Normal 23-92 [facility] Comment on above: Performed By: #### L [id number] #### [facility] ([facility]) [address] [place] [address] NON HDL CHOL. (LDL+VLDL) 95 Normal [facility] Comment on above: Performed By: #### L [id number] #### [facility] ([facility]) [address] [place] [address] TOTAL VLDL-C 32 mg/dL Normal 0-40 [facility] Comment on above: Performed By: #### L [id number] #### [facility] [address] [place] [address] MAGNESIUMon 07-06-2023 Magnesium [Mass/Vol] 2.2 mg/dL Normal 1.9-2.7 [facility] Comment on above: Performed By: #### L [id number] #### [facility] [address] [place] [address] PHOSPHORUSon 07-06-2023 Magnesium [Mass/Vol] 5.2 mg/dL High 2.5-5.0 [facility] Comment on above: Performed By: #### L [id number] #### [facility] [address] [place] [address] PROTIME-INRon 07-06-2023 INR IN PPP BY COAGULATION ASSAY 1.00 Normal 0.90-1.10 [facility] Comment on above: Result Comment: [facility] [...] RANGE. CHEST 1995;108:[id number]-[id number]. Performed By: #### L [id number] #### [facility] [address] [place] [address] PROTHROMBIN TIME (PT) IN PPP BY COAGULATION ASSAY 13.2 Seconds Normal 12.3-14.8 [facility] Comment on above: Performed By: #### L [id number] #### NEW [facility] [address] [place] [address] TOXICOLOGY PANEL URINEon AMPHETAMINE+METHAMPHET AMINE SCREEN (PRESENCE) IN URINE Negative Normal Negative [facility] Comment on above: Performed By: #### L [id number] #### [facility] [address] [place] [address] BARBITURATES PRESENCE IN URINE BY SCREEN METHOD Negative Normal Negative [facility] Comment on above: Performed By: #### L [id number] #### [facility] [address] [facility] [facility] [place] [address] Benzodiazepines Ql (U) Positive Abnormal Negative Un [facility] Comment on above: Performed By: #### L [id number] #### [facility] ([facility]) [address] [place] [address] CANNABINOID (PRESENCE) IN URINE BY SCREEN METHOD Positive Abnormal Negative [facility] Comment on above: Performed By: #### L [id number] #### [facility] ([facility]) [address] [place] [address] Cocaine Ql (U) Negative Normal Negative [facility] Comment on above: Performed By: #### L [id number] #### [facility] ([facility]) [address] [place] [address] METHADONE (PRESENCE) IN URINE BY SCREEN METHOD Negative Normal Negative [facility] Comment on above: Performed By: #### L [id number] #### [facility] ([facility]) [address] [place] [address] OPIATES (PRESENCE) IN URINE BY SCREEN METHOD Negative Normal Negative [facility] Comment on above: Performed By: #### L [id number] #### [facility] ([facility]) [address] [place] [address] PHENCYCLIDINE PRESENCE IN URINE BY SCREEN METHOD Negative Normal Negative [facility] Comment on above: Performed By: #### L [id number] #### [facility] ([facility]) [address] [place] [address] Propoxyphene Screen Ql (U) Negative Normal Negative [facility] Comment on above: Performed By: #### L [id number] #### [facility] ([facility]) [address] [place] [address] TRICYCLIC ANTIDEPRESSANTS (PRESENCE) IN URINE Positive Abnormal Negative [facility] Comment on above: Performed By: #### L [id number] #### [facility] ([facility]) [address] [facility] [place] [address] TROPONIN Ion 07-06-2023 Troponin I.cardiac [Mass/Vol] 0.12 ng/mL Critically high 0.00-0.04 [facility] Comment on above: Result Comment: M-MT EVIOUS CRITICAL RESULT Previous result verified on 07/06/2023 1236 on specimen/case [id number] called with component Troponin I for procedure Troponin I with value 0.11 ng/mL. Performed By: #### L [id number] #### [facility] ([facility]) [address] [place] [address] Troponin I.cardiac [Mass/Vol] 0.11 ng/mL Critically high 0.00-0.04 [facility] Comment on above: Result Comment: M-MT EVIOUS CRITICAL RESULT Previous result verified on 07/06/2023 0444 on specimen/case [id number] called with component Troponin I for procedure Troponin I with value 0.12 ng/mL. Performed By: #### L [id number] #### [facility] ([facility]) [address] [place] [address] Troponin I.cardiac [Mass/Vol] 0.12 ng/mL Critically high 0.00-0.04 [facility] Comment on above: Result Comment: M-CR ITICAL RESULT(S) REVIEWED, CALLED TO AND READ BACK BY PRIYANKA LEOS RN AT 0442 M-TROPONIN INITIAL CRITICAL HIGH; RESPUN AND RETESTED Performed By: #### L [id number] #### [facility] ([facility]) [address] [place] [address] TSH3 REFLEX TO FT4on 024 THYROTROPIN (MIU/L) IN SER/PLAS BY DETECTION LIMIT <= 0.05 MIU/L 4.25 mIU/L Normal 0.34-5.60 [facility] Comment on above: Performed By: #### L [id number] #### [facility] ([facility]) [address] [place] [address] Transfer Documentson 024 Transfer Documents [id number]# 1.00TIFF Normal [facility] URINALYSIS WITH REFLEX CULTU REon 07-06-2023 BILIRUBIN, TOTAL PRESENCE IN URINE Negative Normal Negative [facility] Comment on above: Order Comment: Micro scopics not performed on urines with negative chemical reactions unless requested on original order. Performed By: #### L [id number] #### [facility] [address] [place] [address] Clarity (U) Clear Normal Clear [facility] Comment on above: Order Comment: Micro scopics not performed on urines with negative chemical reactions unless requested on original order. Performed By: #### L [id number] #### [facility] ([facility]) [address] [place] [address] Color (U) Yellow Normal Yellow [facility] Comment on above: Order Comment: Micro scopics not performed on urines with negative chemical reactions unless requested on original order. Performed By: #### L [id number] #### [facility] ([facility]) [address] [place] [address] Glucose (U) [Mass/Vol] mg/dL Abnormal Negative [facility] Comment on above: Order Comment: Micro scopics not performed on urines with negative chemical reactions unless requested on original order. Performed By: #### L [id number] #### [facility] ([facility]) [address] [place] [address] HEMOGLOBIN PRESENCE IN URINE Negative Normal Negative [facility] Comment on above: Order Comment: Micro scopics not performed on urines with negative chemical reactions unless requested on original order. Performed By: #### L [id number] #### [facility] ([facility]) [address] [place] [address] Ketones Ql (U) Negative Normal Negative [facility] Comment on above: Order Comment: Micro scopics not performed on urines with negative chemical reactions unless requested on original order. Performed By: #### L [id number] #### [facility] ([facility]) [address] [place] [address] LEUKOCYTE ESTERASE PRESENCE IN URINE BY TEST STRIP Negative Normal Negative [facility] Comment on above: Order Comment: Micro scopics not performed on urines with negative chemical reactions unless requested on original order. Performed By: #### L [id number] #### [facility] ([facility]) [address] [place] [address] NITRITE PRESENCE IN URINE Negative Normal Negative [facility] Comment on above: Order Comment: Micro scopics not performed on urines with negative chemical reactions unless requested on original order. Performed By: #### L [id number] #### [facility] ([facility]) [address] [place] [address] pH (U) 6.0 [pH] Normal 5.0-8.0 [facility] Comment on above: Order Comment: Micro scopics not performed on urines with negative chemical reactions unless requested on original order. Performed By: #### L [id number] #### [facility] ([facility]) [address] [place] [address] Protein (U) [Mass/Vol] Negative Normal Negative [facility] Comment on above: Order Comment: Micro scopics not performed on urines with negative chemical reactions unless requested on original order. Performed By: #### L [id number] #### [facility] ([facility]) [address] [place] [address] Specific gravity (U) [Rel density] 1.013 Low 1.015-1.020 [facility] Comment on above: Order Comment: Micro scopics not performed on urines with negative chemical reactions unless requested on original order. Performed By: #### L [id number] #### [facility] ([facility]) [address] [place] [address] BILIRUBIN, TOTAL PRESENCE IN URINE Negative Normal Negative [facility] Comment on above: Order Comment: Micro scopics not performed on urines with negative chemical reactions unless requested on original order. Performed By: #### L [id number] #### [facility] ([facility]) [address] [place] [address] Clarity (U) Clear Normal Clear [facility] Comment on above: Order Comment: Micro scopics not performed on urines with negative chemical reactions unless requested on original order. Performed By: #### L [id number] #### [facility] ([facility]) [address] [place] [address] Color (U) Yellow Normal Yellow [facility] Comment on above: Order Comment: Micro scopics not performed on urines with negative chemical reactions unless requested on original order. Performed By: #### L [id number] #### [facility] ([facility]) [address] [place] [address] Glucose (U) [Mass/Vol] mg/dL Abnormal Negative [facility] Comment on above: Order Comment: Micro scopics not performed on urines with negative chemical reactions unless requested on original order. Performed By: #### L [id number] #### [facility] ([facility]) [address] [place] [address] HEMOGLOBIN PRESENCE IN URINE Negative Normal Negative [facility] Comment on above: Order Comment: Micro scopics not performed on urines with negative chemical reactions unless requested on original order. Performed By: #### L [id number] #### [facility] ([facility]) [address] [place] [address] Ketones Ql (U) Negative Normal Negative [facility] Comment on above: Order Comment: Micro scopics not performed on urines with negative chemical reactions unless requested on original order. Performed By: #### L [id number] #### [facility] ([facility]) [address] [place] [address] LEUKOCYTE ESTERASE PRESENCE IN URINE BY TEST STRIP Negative Normal Negative [facility] Comment on above: Order Comment: Micro scopics not performed on urines with negative chemical reactions unless requested on original order. Performed By: #### L [id number] #### [facility] ([facility]) [address] [place] [address] NITRITE PRESENCE IN URINE Negative Normal Negative [facility] Comment on above: Order Comment: Micro scopics not performed on urines with negative chemical reactions unless requested on original order. Performed By: #### L [id number] #### [facility] ([facility]) [address] [place] [address] pH (U) 6.0 [pH] Normal 5.0-8.0 [facility] Comment on above: Order Comment: Micro scopics not performed on urines with negative chemical reactions unless requested on original order. Performed By: #### L [id number] #### [facility] ([facility]) [address] [place] [address] Protein (U) [Mass/Vol] Negative Normal Negative [facility] Comment on above: Order Comment: Micro scopics not performed on urines with negative chemical reactions unless requested on original order. Performed By: #### L [id number] #### [facility] ([facility]) [address] [place] [address] Specific gravity (U) [Rel density] 1.017 Normal 1.015-1.020 [facility] Comment on above: Order Comment: Micro scopics not performed on urines with negative chemical reactions unless requested on original order. Performed By: #### L [id number] #### [facility] ([facility]) [address] [place] [address] BMP 07-05-2023 Anion gap [Moles/Vol] 15 mmol/L Normal 6-16 [facility] Comment on above: Performed By: #### 1 7629196, 9692988, 85366401, 89155105, 7171407, 27304319, 6049606, 0882655, 4580449, 0369739 ####[facility] [address] [place] [address] BUN/Creat Ratio 15 No Units Normal 10-20 [facility] Comment on above: Performed By: #### 1 1902379, 7368087, 12397353, 34581196, 0790298, 53535356, 6047339, 2445589, 1880696, 0782885 ####[facility] [address] [place] [address] Calcium [Mass/Vol] 10.1 mg/dL Normal 8.9-11.1 [facility] Comment on above: Performed By: #### 1 7814831, 0947455, 04120533, 29415279, 4552707, 53389487, 2615160, 7772544, 3370968, 0704724 ####[facility] [address] [place] [address] Chloride [Moles/Vol] 96 mmol/L Low 101-111 [facility] Comment on above: Performed By: #### 1 3298854, 1318051, 01389138, 66956045, 9167858, 41763983, 5403475, 3013470, 3602580, 0529809 ####[facility] [address] [place] [address] CO2 [Moles/Vol] 32 mmol/L High 21-31 [facility] Comment on above: Performed By: #### 1 6841571, 7212670, 36330468, 02564004, 8739902, 20530893, 0327075, 7864070, 2968480, 0248301 ####[facility] [address] [place] [address] Creatinine [Mass/Vol] 1.5 mg/dL High 0.5-1.3 [facility] Comment on above: Performed By: #### 1 9113904, 2516121, 67193067, 04559623, 4738148, 27888102, 4474938, 7848204, 9173379, 5669282 ####[facility] [address] [place] [address] Glucose [Mass/Vol] 147 mg/dL Normal 55-199 [facility] Comment on above: Performed By: #### 1 2454332, 4151532, 17760285, 42887433, 1220578, 84076776, 6846107, 7341490, 9054918, 3466595 ####[facility] [address] [place] [address] Potassium [Moles/Vol] 5.1 mmol/L Normal 3.5-5.3 [facility] Comment on above: Performed By: #### 1 2083902, 5613377, 39950875, 67056379, 7615065, 22103543, 7841150, 9887431, 3604021, 6107497 ####[facility] [address] [place] [address] Sodium [Moles/Vol] 138 mmol/L Normal 135-145 [facility] Comment on above: Performed By: #### 1 2767167, 3551362, 25049649, 74026007, 2623222, 38328815, 0812555, 6549281, 6040233, 1922011 ####[facility] [address] [place] [address] Urea nitrogen [Mass/Vol] 22 mg/dL High 5-21 [facility] Comment on above: Performed By: #### 1 7838969, 8757359, 72938627, 03076149, 6524807, 99946441, 3742822, 0743909, 2115038, 7064751 ####[address] [address] BNPon 07-05-2023 Natriuretic peptide B (Bld) [Mass/Vol] 508 pg/mL High 5-80 [facility] Comment on above: Performed By: #### 1 2852993, 8350495, 88343357, 51298907, 5929194, 06847866, 7255963, 6048277, 5701192, 5986306 ####[address] [address] CBC w/ Auto Diffon Basophil Absolute 0.1 E9/L Normal 0.0-0.2 [facility] Comment on above: Performed By: #### 1 0311064, 8189588, 13925708, 25048996, 3829383, 55155832, 0161100, 8900377, 2795040, 0037386 ####[address] [place] [address] Basophils/100 WBC (Bld) 0.7 % Normal 0.0-2.0 [facility] Comment on above: Performed By: #### 1 4671457, 4736532, 44611173, 23655257, 6723759, 46877198, 7033474, 5258829, 6384516, 0393857 ####[address] [place] [id number] Eos Absolute 0.4 E9/L Normal 0.0-0.5 [facility] Comment on above: Performed By: #### 1 3305008, 9814603, 26092967, 94351186, 4661560, 47628449, 8123564, 1116951, 0418659, 8485252 ####[place] [address] Eosinophils/100 WBC (Bld) 3.7 % Normal 0.0-8.0 [facility] Comment on above: Performed By: #### 1 8238098, 7148816, 00420203, 85012500, 6443150, 98221749, 5055492, 3176764, 7958549, 3103642 ####[place] [address] Erythrocyte distribution width (RBC) [Ratio] 16.8 % High 10.9-14.2 [facility] Comment on above: Performed By: #### 1 3143640, 4300460, 91209981, 07777417, 7203856, 35927841, 0521335, 8308064, 3197573, 5620340 ####[place] [address] Hematocrit (Bld) [Volume fraction] 46.0 % Normal 34.0-46.0 [facility] Comment on above: Performed By: #### 1 2295920, 5668465, 53171836, 71980155, 9586031, 28570016, 0461507, 1523956, 1576937, 5876771 ####[place] [address] Hemoglobin (Bld) [Mass/Vol] 15.1 g/dL Normal 12.0-16.0 [facility] Comment on above: Performed By: #### 1 0006504, 5168871, 21858886, 34102850, 2376346, 70857097, 4066534, 2344585, 8256298, 3122170 ####[address] [place] [address] Lymph Absolute 3.6 E9/L Normal 1.0-4.0 [facility] Comment on above: Performed By: #### 1 0826613, 8187559, 15475287, 95593142, 2009649, 75790451, 3267950, 8585979, 7314603, 1323576 ####[address] [address] Lymphocytes/100 WBC (Bld) 30.9 % Normal 14.0-50.0 [facility] Comment on above: Performed By: #### 1 7346956, 0704961, 87701010, 50613984, 3489055, 24999754, 8998263, 9101369, 2663599, 5248561 ####[address] [address] MCH (RBC) [Entitic mass] 27.6 pg Normal 27.0-34.0 [facility] Comment on above: Performed By: #### 1 2502006, 1326150, 01299425, 80017650, 9927304, 45780501, 0356282, 0366014, 8144514, 3183645 ####[address] [address] MCHC (RBC) [Mass/Vol] 32.8 g/dL Normal 31.4-36.0 [facility] Comment on above: Performed By: #### 1 2744468, 0851723, 79397964, 50191218, 9124154, 20883500, 4010850, 3537206, 3825832, 8488269 ####[address] [address] MCV (RBC) [Entitic vol] 84.3 fL Normal 80.0-100.0 [facility] Comment on above: Performed By: #### 1 6442610, 3276350, 14242287, 15018227, 0493659, 14782385, 6760189, 1606321, 8756762, 3175688 ####[facility] [address] [place] [address] [place] Absolute 0.9 E9/L Normal 0.2-1.0 [facility] Comment on above: Performed By: #### 1 4201337, 5880311, 25214621, 43884822, 3049963, 36092380, 3051163, 5048464, 3612065, 5687830 ####[address] [place] [address] Monocytes/100 WBC (Bld) 8.1 % Normal 4.0-14.0 [facility] Comment on above: Performed By: #### 1 1510968, 5363987, 17201253, 81485297, 3090368, 82894410, 2763280, 0650587, 3560950, 2207297 ####[address] [address] Neutro Absolute 6.6 E9/L Normal 2.0-7.5 [facility] Comment on above: Performed By: #### 1 5271411, 4591335, 59414814, 02964746, 9367499, 73776164, 4544053, 7514995, 5430648, 0967820 ####[address] [place] [address] Neutro Auto 56.6 % Normal 36.0-75.0 [facility] Comment on above: Performed By: #### 1 7890711, 5875100, 00879008, 66562797, 1140065, 50885281, 3180938, 0897749, 6654523, 6651454 ####[address] [place] [address] Platelet 431.0 E9/L Normal 150.0-500.0 [facility] Comment on above: Performed By: #### 1 8959732, 1689362, 61009573, 86990227, 3461828, 48735788, 2595130, 5440531, 7506316, 0395584 ####[facility] [address] [place] [address] Platelet mean volume (Bld) [Entitic vol] 8.5 fL Normal 6.4-10.8 [facility] Comment on above: Performed By: #### 1 5446981, 9495361, 73004836, 11663576, 3575776, 00913210, 8389680, 6563275, 6466705, 9451674 ####[facility] [address] [place] [address] RBC 5.5 E12/L Normal 4.3-5.9 [facility] Comment on above: Performed By: #### 1 0519406, 2759464, 51131506, 19929060, 7422383, 00851823, 2170596, 2634918, 5335531, 8170563 ####[facility] [address] [place] [address] WBC 11.6 E9/L High 4.0-11.0 [facility] Comment on above: Performed By: #### 1 0226283, 0827923, 55050051, 44271613, 0191900, 98010441, 4695477, 4703944, 4926228, 7388313 ####[facility] [address] [place] [address] CHEMISTRYOrdered By: SYSTEM SYSTEM on 07-05-2023 Troponin 51.10 pg/mL Invalid Interpretation Code 10.10 - 27.10 pg/mL Remisol Chem Comment on above: Result Comment: Crit ical Result I_TnIHS:51.1 Called to and read back by: DR. JUAN MAS at: 07/05/2023 21:51:38 by:[id number] Critical Result Verified by Previous Result Interpretive Data: T he 95% CI (Confidence Interval) PPV (Positive Predictive Value) for myocardial infarction in females is 38 pg/mL, in males 51 pg/mL. The results should be used in conjunction with clinical conditions of myocardial infarction. (Access High Sensitivity Troponin I Instructions For Use, [employer] [facility], December 2017) Troponin 51.70 pg/mL Invalid Interpretation Code 10.10 - 27.10 pg/mL [facility] Chem S Comment on above: Interpretive Data: T he 95% CI (Confidence Interval) PPV (Positive Predictive Value) for myocardial infarction in females is 38 pg/mL, in males 51 pg/mL. The results should be used in conjunction with clinical conditions of myocardial infarction. (Access High Sensitivity Troponin I Instructions For Use, [facility], December 2017) Result Comment: Crit ical Result [...] back by: JOHNNA PERKINS at: 07/05/2023 16:37:35 by:[id number] Interpretive Data: T he 95% CI (Confidence [...] 508 pg/mL High 5 - 80 pg/mL [facility] COAGULATIONOrdered By: Richar Kumar on 07-05-2023 aPTT Coag (PPP) [Time] 27.2 s Normal 25.1 - 36.5 second(s) [facility] Auto Coag Comment on above: Interpretive Data: [...] the same coagulation reagent and instrumentation as [facility]. Currently there are no coagulation studies available worldwide for children to 14 days, and no normal ranges. Heparin therapeutic range (represented by Anti-Factor Xa activity of 0.2 - 0.4 U/mL) corresponds to PTT of 56.6 - 109.0 sec. INR Coag (PPP) [Relative time] 1.01 {INR} Invalid Interpretation Code [facility] Auto Coag Comment on above: Interpretive Data: I NR results are specifically intended to assess patients stabilized on long-term Anticoagulation therapy suggested INR s Less Intensive Anticoagulation 2.0 3.0 Conventional Range 3.0 4.5 PT Coag (PPP) [Time] 11.2 s Normal 9.4 - 1 2.5 second(s) [facility] Auto Coag Comment on above: Interpretive Data: [...] the same coagulation reagent and instrumentation as [facility]. Currently there are no coagulation studies available worldwide for children to 14 days, and no normal ranges. Consent for Treatment 06-15 Consent for Treatment [id number] .00TIFF Normal [facility] Digoxinon 07-05-2023 Digoxin Lvl <0.2 Low 0.5-1.9 [facility] Comment on above: Performed By: #### 1 [id number], 2070874, 99819941, 08902003, 5326079, 05951544, 3331147, 2838007, 9305047, 6808535 ####[facility] [address] [place] [address] ED Note-Physicianon 07-05-19 24 ED Note-Physician Basic [...] patient states she was just released from [facility] 36 hours ago. She states she was [...] (more content not included)... Normal [facility] Comment on above: Result Comment: Elec [...] Normal 80.0 - 100.0 fL Remisol Heme [place] Absolute 0.9 E9/L Normal 0.2 - 1.0 [...] [Mass/Vol] 4.3 g/dL Normal 3.3-5.0 [facility] Comment on above: Performed By: #### 1 6615302, 2946624, 99146847, 31174727, 9526915, 15315004, 0858464, 8221297, 0241764, 9480770 ####[facility] [address] [place] [address] Albumin/Globulin [Mass ratio] 1.4 {ratio} Normal 1.1-2.2 [facility] Comment on above: Performed By: #### 1 1903714, 2230871, 63890909, 69996661, 6623500, 83414256, 0563939, 1876422, 6515879, 5490985 ####[facility] [address] [place] [address] Alk Phos 77 Int._Unit/L Normal 21-98 [facility] Comment on above: Performed By: #### 1 2572883, 5773006, 17584454, 15144277, 2749298, 25099083, 1419225, 8910577, 8054439, 2211274 ####[address] [place] [address] ALT 20 Int._Unit/L Normal 6-46 [facility] Comment on above: Performed By: #### 1 7493885, 0279200, 79608767, 32270900, 6279981, 25859706, 1883407, 3008106, 1069831, 5528351 ####[address] [place] [address] AST 23 Int._Unit/L Normal 5-43 [facility] Comment on above: Performed By: #### 1 8080829, 0415332, 62752495, 06115554, 2292162, 39819838, 8941856, 7213876, 6912748, 4978109 ####[facility] [address] [place] [address] Bili Direct 0.1 mg/dL Normal 0.0-0.4 [facility] Comment on above: Performed By: #### 1 2681512, 5684381, 43590226, 31984048, 3438971, 66765092, 7576382, 3443458, 7121704, 1142030 ####[facility] [address] [place] [address] Bili Indirect 0.5 mg/dL Normal 0.1-0.9 [facility] Comment on above: Performed By: #### 1 2505554, 8848521, 45698606, 89453123, 8795897, 95342688, 2249800, 1109730, 7818515, 2327165 ####[facility] [address] [place] [address] Bili Total 0.6 mg/dL Normal 0.0-1.1 [facility] Comment on above: Performed By: #### 1 1035608, 3238442, 25829976, 45897616, 9864687, 67382448, 3940147, 5098134, 3989420, 7858896 ####[facility] [address] [place] [address] Globulin (S) [Mass/Vol] 3.0 g/dL Normal 1.4-4.0 [facility] Comment on above: Performed By: #### 1 9202397, 1335461, 85803033, 30831768, 2253413, 34413239, 5997712, 0107798, 2321358, 1533332 ####[facility] [address] [place] [address] Protein [Mass/Vol] 7.3 g/dL Normal 6.0-7.8 [facility] Comment on above: Performed By: #### 1 0321984, 5319286, 09971309, 11966473, 5034519, 95315609, 5780853, 9284749, 5679314, 3052315 ####[facility] [address] [place] [address] Lipase Levelon 07-05-2023 Lipase Lvl 22 unit/L Normal 13-58 [facility] Comment on above: Performed By: #### 1 5665687, 9055710, 57970340, 16296491, 2426945, 79185751, 5786297, 9281627, 9088786, 6096338 ####[facility] [address] [place] [address] Magnesiumon 07-05-2023 Magnesium [Mass/Vol] 2.3 mg/dL Normal 1.3-2.4 [facility] Comment on above: Performed By: #### 1 7570063, 6662869, 30189456, 62355753, 8914951, 99396356, 7482445, 5451987, 9162632, 4459150 ####[facility] [address] [place] [address] Monitor Recordon 07-05-2023 Monitor Record [id number]# 1.00TIFF Normal [facility] Monitor Record [id number] 2 [id number]# 1.00TIFF Normal [facility] Monitor Record [id number] 2 [id number]# 1.00TIFF Normal [facility] PT & PTTon 07-05-2023 aPTT Coag (PPP) [Time] 27.2 second(s) Normal 25.1-36.5 [facility] Comment on above: Result Comment: Para [...] the same coagulation reagent and instrumentation as [facility]. Currently there are no coagulation studies available worldwide for children to 14 days, and no normal ranges. Heparin therapeutic range (represented by Anti-Factor Xa activity of 0.2 - 0.4 U/mL) corresponds to PTT of 56.6 - 109.0 sec. Performed By: #### 1 5896707, 1627313, 72523211, 29498619, 0215754, 45846467, 6640393, 8590962, 4823473, 5396239 ####[facility] [address] [place] [address] INR Coag (PPP) [Relative time] 1.01 {INR} Invalid Interpretation Code [facility] Comment on above: Result Comment: INR results are specifically intended to assess patients stabilized on long-term Anticoagulation therapy suggested INR?s ?Less Intensive Anticoagulation? 2.0 ? 3.0 Conventional Range 3.0 ? 4.5 Performed By: #### 1 8920220, 6660181, 23461694, 69687198, 8820570, 09804683, 0115957, 7770952, 2099058, 0478063 ####[facility] [address] [place] [address] PT Coag (PPP) [Time] 11.2 second(s) Normal 9.4-12.5 [facility] Comment on above: Result Comment: 15 [...] the same coagulation reagent and instrumentation as [facility]. Currently there are no coagulation studies available worldwide for children to 14 days, and no normal ranges. Performed By: #### 1 7194222, 3549660, 58475945, 12041603, 2410421, 04758713, 0151117, 7637161, 3961545, 8628119 ####[facility] [address] [place] [address] Pre-Arrival Noteon Pre-Arrival Note Pre-Arrival Summary Name: , [facility] Current Date: 07/05/2023 15:02:00 EST Gender: Female Date of : Age: 63 Pre-Arrival Type: EMS ETA: 07/05/2023 15:21:00 EST Primary Care Physician: Presenting Problem: HR 40s, CP, SOB, dizziness, abd. pain, nausea Pre-Arrival User: Oxana Pace RN Referring Source: Location: [place] Completion Date/Time: 07/05/2023 14:51:00 [facility] Emergency Department Pre-Hospital Report Form Vital Signs: Pre-Hospital Report: Treatment in Route: Response to Treatment: Misc. Issues: Normal [facility] Troponin 0 Hr.on 07-05-2023 Troponin 49.20 pg/mL Abnormal 10.10-27.10 [facility] Comment on above: Result Comment: Steven gonzalez Result Verified by Repeat Analysis Critical Result I_TnIHS:49.2 Called to and read back by: JOHNNA PERKINS at: 07/05/2023 16:37:35 by:[email or web address] The 95% CI (Confidence Interval) PPV (Positive Predictive Value) for myocardial infarction in females is 38 pg/mL, in males 51 pg/mL. The results should be used in conjunction with clinical conditions of myocardial infarction. (Access High Sensitivity Troponin I Instructions For Use, Johana Sols, December 2017) Performed By: #### 1 8399535, 9563042, 52392075, 03352113, 0704686, 47369435, 4745745, 8609360, 3483892, 7919214 ####[facility] [place] [address] Troponin 3 Hr.on 07-05-2023 Troponin 51.70 pg/mL Abnormal 10.10-27.10 [facility] Comment on above: Result Comment: The 95% CI (Confidence Interval) PPV (Positive Predictive Value) for myocardial infarction in females is 38 pg/mL, in males 51 pg/mL. The results should be used in conjunction with clinical conditions of myocardial infarction. (Access High Sensitivity Troponin I Instructions For Use, [employer], December 2017) Critical Result Verified by Previous Result Results Called To Johnna Perkins (ER) By STAN[place]ORD And Read Back For Confirmation On 07/05/2023 19:18:03 EST. Performed By: #### 1 [id number] ####[facility] [address] [place] [address] Troponin 6 Hr.on 07-05-2023 Troponin 51.10 pg/mL Abnormal 10.10-27.10 [facility] Comment on above: Result Comment: Crit ica Result I_TnIHS:51.1 Called to and read back by: DR. JUAN MAS at: 07/05/2023 21:51:38 by:[email or web address] Critical Result Verified by Previous Result The 95% CI (Confidence Interval) PPV (Positive Predictive Value) for myocardial infarction in females is 38 pg/mL, in males 51 pg/mL. The results should be used in conjunction with clinical conditions of myocardial infarction. ([employer] High Sensitivity Troponin I Instructions For Use, [employer], December 2017) Performed By: #### 1 [id number] ####[facility] [address] [place] [address] XR Chest Single Viewon 07-05 XR Chest [...] na DAP = na Normal [facility] eGFRon 07-05-2023 eGFR 39 mL/min/1.73 m2 Low >=59 [facility] Comment on above: Order Comment: Order added by Discern Expert. Performed By: #### 1 4561102, 1552247, 76577637, 16184087, 8952199, 59192882, 3714547, 9849237, 7489748, 4407706 ####[facility] [address] [place] [address] 36on 07-03-2023 36 Unable to reach pt . Phone not in service [facility] 36 Pts phone number not in service. Spoke to pts friend Arvind and requested he have pt call us, he agrees. [facility] Documentationon 07-03-2023 Documentation [id number] Vivian Vann 1960 F Date Provider Department Center 07/03/2023 [id number]-OBVPMNFMARKO [facility]OOK [facility] No family history on file Reason for Visit and Comments: HF inpatient satisfaction robyn sent. [Other] [facility] 30on 07-02-2023 30 The patient is Moderately [...] and behaviors that affect risk of falls [place] fall precautions as indicated by assessment Educate [...] improvement and discharge Normal [facility] 30 The patient is Moderately Stable [...] and behaviors that affect risk of falls [place] fall precautions as indicated by assessment Educate [...] improvement and discharge Normal [facility] BASIC METABOLIC PANELon 06-14 Anion gap [Moles/Vol] 11 mmol/L Normal 7-20 [facility] Comment on above: Performed By: #### L [id number] #### [facility] ([facility]) [address] [place] [address] Calcium [Mass/Vol] 9.0 mg/dL Normal 8.6-10.3 [facility] Comment on above: Performed By: #### L [id number] #### [facility] (BEAKER) [address] [place] [address] Chloride [Moles/Vol] 91 mmol/L Low 98-107 [facility] Comment on above: Performed By: #### L [id number] #### [facility] (BEAKER) [address] [place] [address] CO2 [Moles/Vol] 37 mmol/L High 21-31 [facility] Comment on above: Performed By: #### L [id number] #### [facility] (BEAKER) [address] [place] [address] Creatinine [Mass/Vol] 0.89 mg/dL Normal 0.60-1.20 [facility] Comment on above: Performed By: #### L [id number] #### [facility] (BEAKER) [address] [place] [address] GLOMERULAR FILTRATION RATE ML/MIN/1.73 SQ M.PREDICTED 73.3 mL/min/1.73m*2 Normal >60.0 [facility] Comment on above: Result Comment: The [facility]???s estimated glomerular filtration rate (eGFR) will [...] individuals. Performed By: #### L [id number] #### [facility] ([facility]) [address] [place] [address] Glucose [Mass/Vol] 123 mg/dL High 70-100 [facility] Comment on above: Performed By: #### L [id number] #### [facility] ([facility]) [address] [place] [address] Potassium [Moles/Vol] 3.7 mmol/L Normal 3.5-5.1 [facility] Comment on above: Performed By: #### L [id number] #### [facility] ([facility]) [address] [place] [address] Sodium [Moles/Vol] 135 mmol/L Low 136-145 [facility] Comment on above: Performed By: #### L [id number] #### [facility] [address] [place] [address] Urea nitrogen [Mass/Vol] 29 mg/dL High 7-25 [facility] Comment on above: Performed By: #### L [id number] #### [facility] [address] [place] [address] UREA NITROGEN/CREATININE (MASS RATIO) IN SER/PLAS 32.6 Normal [facility] Comment on above: Performed By: #### L [id number] #### [facility] ([facility]) [address] [place] [address] CBCon 07-02-2023 Erythrocyte distribution width (RBC) [Ratio] 15.8 % High 11.5-15.0 [facility] Comment on above: Performed By: #### L [id number] ####[facility] (BEAKER)[address] [place] [address] ERYTHROCYTE MEAN CORPUSCULAR HEMOGLOBIN CONCENTRATION (G/DL) BY AUTOMATED 31.8 g/dL Low 32.0-35.0 [facility] Comment on above: Performed By: #### L [id number] ####[facility] [place] [address] Hematocrit (Bld) [Volume fraction] 44.0 % Normal 36.0-48.0 [facility] Comment on above: Performed By: #### L [id number] ####[facility] [place] [address] Hemoglobin (Bld) [Mass/Vol] 14.0 g/dL Normal 12.0-15.0 [facility] Comment on above: Performed By: #### L [id number] ####[facility] [place] [address] MCH (RBC) [Entitic mass] 27.9 pg Normal 27.0-33.0 [facility] Comment on above: Performed By: #### L [id number] ####[facility] (BEAKER)[address] [place] [address] MCV (RBC) [Entitic vol] 87.8 fL Normal 82.0-98.0 [facility] Comment on above: Performed By: #### L [id number] ####[facility] (BEAKER)[address] [place] [address] PLATELETS (10*3/UL) IN BLOOD AUTOMATED COUNT 285 10*3/uL Normal 150-400 [facility] Comment on above: Performed By: #### L [id number] ####[facility] (BEAKER)[address] [place] [address] RBC (Bld) [#/Vol] 5.01 10*6/uL High 3.80-5.00 [facility] Comment on above: Performed By: #### L [id number] ####[facility] ([facility])[address] [place] [address] WBC (Bld) [#/Vol] 8.89 10*3/uL Normal 4.00-10.60 [facility] Comment on above: Performed By: #### L [id number] ####[facility] ([facility])[address] [place] [address] DSon 07-02-2023 DS Admit Date 06/29/2023 Discharge Date 07/02/2023 Discharge Diagnosis NSTEMI Acute on chronic HFpEF NYHA class 2 CAD DMII noninsulin dependent Chronic pain Anxiety GERD Tobacco abuse Discharge Disposition Home-Health Care [facility] () Discharge Medications Your medication list START [...] Medications These medications were sent to [facility] - [place], [place] - [address] [facility] [place] [address] [facility] [place] [address], [facility] [address] furosemide 40 mg tablet spironolactone 25 mg tablet Activity Normal activity as tolerated Diet Continue on the same type of diet and foods as you were eating before your admission. Drink plenty of water. Allergies Hay fever and allergy relief and House dust Hospital Course History of Present Illness Vivian Vann is an 63 y.o. female who came from [facility] as direct asmission for NSTEMI. Patient presented 06/28/23 to [place] ED for c/o chest pain and lower back pain. Patient troponin level found to be 557 and EKG showed new ischemia and inverted T-waves, NSTEMI. She was given nitroglycerin and started on heparin drip. Patient is 1 year s/p stent placement at [facility] on plavix and aspirin. Dr. Chapa with cardiology agreed to patient transfer here to [facility] with hospital medicine admitting and cardiology [...] Low back pending. Laboratory workup here at [facility] shows CBC unremarkable w/ exception of [...] content not included)... Normal [facility] POCT GLUCOSE METER UNSOLICIT ED RESULTSon 07-02-2023 Glucose [Mass/Vol] 117 mg/dL High 70-105 [facility] Comment on above: Order Comment: Waive d Testing in the ED is performed under the ED CLIA certificate #[id number]. Result Comment: [email or web address] Performed By: #### L [id number] #### [facility] (BEAKER) [address] [place] [address] Glucose [Mass/Vol] 110 mg/dL High 70-105 [facility] Comment on above: Order Comment: Waive d Testing in the ED is performed under the ED CLIA certificate #[id number]. Result Comment: [email or web address] Performed By: #### L [id number] ####[facility] (BEAKER)[address] [place] [address] 30on 07-01-2023 30 The patient is Moderately [...] and behaviors that affect risk of falls [place] fall precautions as indicated by assessment Educate [...] or improved Outcome: Progressing Flowsheets (Taken 07/01/2023 07) Care Plan - Patient's Chronic Conditions and [...] improvement and discharge Normal [facility] BASIC METABOLIC PANELon 06-14 Anion gap [Moles/Vol] 10 mmol/L Normal 7-20 [facility] Comment on above: Performed By: #### L [id number] ####[facility] ([facility]AKER)[address] [place] [address] Calcium [Mass/Vol] 8.3 mg/dL Low 8.6-10.3 [facility] Comment on above: Performed By: #### L [id number] ####[facility] ([facility])[address] [place] [address] Chloride [Moles/Vol] 98 mmol/L Normal 98-107 [facility] Comment on above: Performed By: #### L [id number] ####[facility] ([facility])[address] [place] [address] CO2 [Moles/Vol] 35 mmol/L High 21-31 [facility] Comment on above: Performed By: #### L [id number] ####[facility] ([facility])[address] [place] [address] Creatinine [Mass/Vol] 1.08 mg/dL Normal 0.60-1.20 [facility] Comment on above: Performed By: #### L [id number] ####[facility] ([facility])[address] [place] [address] GLOMERULAR FILTRATION RATE ML/MIN/1.73 SQ M.PREDICTED 58.1 mL/min/1.73m*2 Low >60.0 [facility] Comment on above: Result Comment: The [facility]???s estimated glomerular filtration rate (eGFR) will [...] of individuals. Performed By: #### L [id number] ####[facility] ([facility])[address] [place] [address] Glucose [Mass/Vol] 116 mg/dL High 70-100 [facility] Comment on above: Performed By: #### L [id number] ####[facility] [place] [address] Potassium [Moles/Vol] 3.7 mmol/L Normal 3.5-5.1 [facility] Comment on above: Performed By: #### L [id number] ####[facility] ([facility])[address] [place] [address] Sodium [Moles/Vol] 139 mmol/L Normal 136-145 [facility] Comment on above: Performed By: #### L [id number] ####[facility] ([facility])[address] [place] [address] Urea nitrogen [Mass/Vol] 27 mg/dL High 7-25 [facility] Comment on above: Performed By: #### L [id number] ####[facility] ([facility])[address] [place] [address] UREA NITROGEN/CREATININE (MASS RATIO) IN SER/PLAS 25.0 Normal [facility] Comment on above: Performed By: #### L [id number] ####[facility] ([facility])[address] [place] [address] POCT GLUCOSE METER UNSOLICIT ED RESULTSon 07-01-2023 Glucose [Mass/Vol] 132 mg/dL High 70-105 [facility] Comment on above: Order Comment: Waive d Testing in the ED is performed under the ED CLIA certificate #[id number]. Result Comment: [email or web address] weir Performed By: #### L [id number] ####[facility] ([facility])[address] [place] [address] Glucose [Mass/Vol] 106 mg/dL High 70-105 [facility] Comment on above: Order Comment: Waive d Testing in the ED is performed under the ED CLIA certificate #[id number]. Result Comment: mick rad Performed By: #### L [id number] #### [facility] ([facility]) [address] [place] [address] Glucose [Mass/Vol] 121 mg/dL High 70-105 [facility] Comment on above: Order Comment: Waive d Testing in the ED is performed under the ED CLIA certificate #[id number]. Result Comment: wwar rad Performed By: #### L [id number] ####[facility] ([facility])[address] [place] [address] Glucose [Mass/Vol] 105 mg/dL Normal 70-105 [facility] Comment on above: Order Comment: Waive d Testing in the ED is performed under the ED CLIA certificate #[id number]. Result Comment: wwar rad Performed By: #### L [id number] ####[facility] ([facility])[address] [place] [address] 30on 06-30-2023 30 The patient is Moderately [...] improved Outcome: Progressing Normal [facility] ANTI-XA (HEPARIN LEVEL)on HEPARIN UNFRACTIONATED (U/ML) IN PPP BY CHROMOGENIC METHOD <0.10 Invalid Interpretation Code 0.3-0.7 [facility] Comment on above: Order Comment: Check anti-Xa level every 6 hours while on heparin infusion, or per protocol. Result Comment: [place] roxaban and Apixaban will interfere with the anti Xa assay used to monitor UFH and LMWH. Performed By: #### L [id number] #### [facility] ([facility]) [address] [place] [address] CBCon 06-30-2023 Erythrocyte distribution width (RBC) [Ratio] 15.3 % High 11.5-15.0 [facility] Comment on above: Performed By: #### L [id number] ####[facility] (BEAKER)[address] [place] [address] ERYTHROCYTE MEAN CORPUSCULAR HEMOGLOBIN CONCENTRATION (G/DL) BY AUTOMATED 32.2 g/dL Normal 32.0-35.0 [facility] Comment on above: Performed By: #### L [id number] ####[facility] (BEAKER)[address] [place] [address] Hematocrit (Bld) [Volume fraction] 35.7 % Low 36.0-48.0 [facility] Comment on above: Performed By: #### L [id number] ####[facility] (BEAKER)[address] [place] [address] Hemoglobin (Bld) [Mass/Vol] 11.5 g/dL Low 12.0-15.0 [facility] Comment on above: Performed By: #### L [id number] ####[facility] (BEAKER)[address] [place] [address] MCH (RBC) [Entitic mass] 28.1 pg Normal 27.0-33.0 [facility] Comment on above: Performed By: #### L [id number] ####[facility] (BEAKER)[address] [place] [address] MCV (RBC) [Entitic vol] 87.3 fL Normal 82.0-98.0 [facility] Comment on above: Performed By: #### L [id number] ####[facility] (BEAKER)[address] [place] [address] PLATELETS (10*3/UL) IN BLOOD AUTOMATED COUNT 219 10*3/uL Normal 150-400 [facility] Comment on above: Performed By: #### L [id number] ####[facility] (BEAKER)[address] [place] [address] RBC (Bld) [#/Vol] 4.09 10*6/uL Normal 3.80-5.00 [facility] Comment on above: Performed By: #### L [id number] ####[facility] (BEAKER)[address] [place] [address] WBC (Bld) [#/Vol] 10.22 10*3/uL Normal 4.00-10.60 [facility] Comment on above: Performed By: #### L [id number] ####[facility] (ANDRIY)[address] [place] [address] CONSULTon 06-30-2023 CONSULT Clinical Nutrition Assessment Name: [...] with questions and contact the dietitian via Ghost chat 8A-4P Sunday-Sunday. Or call the dietitian's office at extension [phone]. For weekends/holidays, the dietitian's can be reached by paging [phone] from 9A-3P. Unable to be reached via CATASYS chat on Sunday & .) Normal [facility] HEMOGLOBIN A1Con 06-30-2023 Glucose [Mass/Vol] 143 mg/dL Normal [facility] Comment on above: Performed By: #### L [id number] #### [facility] ([facility]) [address] [place] [address] HbA1c (Bld) [Mass fraction] 6.6 % High 4.0-6.0 [facility] Comment on above: Performed By: #### L [id number] #### [facility] ([facility]) [address] [place] [address] LACTIC ACID WITH 4 HOUR REFL EXon 06-30-2023 LACTATE (MMOL/L) IN SER/PLAS 1.9 mmol/L Normal 0.5-2.2 [facility] Comment on above: Performed By: #### L [id number] #### [facility] ([facility]) [address] [place] [address] POCT GLUCOSE METER UNSOLICIT ED RESULTSon 06-30-2023 Glucose [Mass/Vol] 156 mg/dL High 70-105 [facility] Comment on above: Order Comment: Waive d Testing in the ED is performed under the ED CLIA certificate #[id number]. Result Comment: [email or web address] Performed By: #### L [id number] #### [facility] (BEIdleAir) [address] [place] [address] Glucose [Mass/Vol] 149 mg/dL High 70-105 [facility] Comment on above: Order Comment: Waive d Testing in the ED is performed under the ED CLIA certificate #[id number]. Result Comment: [email or web address] [email or web address] Performed By: #### L [id number] #### [facility] (ANPI) [address] [place] [address] Glucose [Mass/Vol] 181 mg/dL High 70-105 [facility] Comment on above: Order Comment: Waive d Testing in the ED is performed under the ED CLIA certificate #[id number]. Result Comment: [email or web address] [email or web address] Performed By: #### L [id number] #### [facility] ([facility]) [address] [place] [address] 30on 06-29-2023 30 The patient is Moderately [...] improved Outcome: Progressing Normal [facility] 30 The patient is Moderately Stable - Low risk of patient condition declining or worsening The patient's goals for the shift include no chest pain The clinical goals for the shift include vss Over the shift, the patient did not make progress toward the following goals. Barriers to progression include . Recommendations to address these barriers include . Normal [facility] APTTon 06-29-2023 ACTIVATED PARTIAL THROMBOPLASTIN TIME IN PPP BY COAGULATION ASSAY 67.3 Seconds High 25.0-35.0 [facility] Comment on above: Result Comment: Clin ical significance of the APTT is questionable in the presence of heparin. Performed By: #### L [id number] #### [facility] ([facility]) [address] [place] [address] B-TYPE NATRIURETIC PEPTIDEon 06-29-2023 Natriuretic peptide B (Bld) [Mass/Vol] 1683 pg/mL High 0-100 [facility] Comment on above: Performed By: #### L [id number] #### [facility] ([facility]) [address] [place] [address] BASIC METABOLIC PANELon 06-14 Anion gap [Moles/Vol] 14 mmol/L Normal 7-20 [facility] Comment on above: Performed By: #### L [id number] #### [facility] (BEAKER) [address] [place] [address] Calcium [Mass/Vol] 8.2 mg/dL Low 8.6-10.3 [facility] Comment on above: Performed By: #### L [id number] #### [facility] [address] [place] [address] Chloride [Moles/Vol] 102 mmol/L Normal 98-107 [facility] Comment on above: Performed By: #### L [id number] #### [facility] (BEAKER) [address] [place] [address] CO2 [Moles/Vol] 25 mmol/L Normal 21-31 [facility] Comment on above: Performed By: #### L [id number] #### [facility] [address] [place] [address] Creatinine [Mass/Vol] 1.04 mg/dL Normal 0.60-1.20 [facility] Comment on above: Performed By: #### L [id number] #### [facility] ([facility]) [address] [place] [address] GLOMERULAR FILTRATION RATE ML/MIN/1.73 SQ M.PREDICTED 60.8 mL/min/1.73m*2 Normal >60.0 [facility] Comment on above: Result Comment: The [facility]???s estimated glomerular filtration rate (eGFR) will [...] individuals. Performed By: #### L [id number] #### [facility] [address] [place] [address] Glucose [Mass/Vol] 268 mg/dL High 70-100 [facility] Comment on above: Performed By: #### L [id number] #### [facility] ([facility]) [address] [place] [address] Potassium [Moles/Vol] 4.1 mmol/L Normal 3.5-5.1 [facility] Comment on above: Performed By: #### L [id number] #### [facility] ([facility]) [address] [place] [address] Sodium [Moles/Vol] 137 mmol/L Normal 136-145 [facility] Comment on above: Performed By: #### L [id number] #### [facility] ([facility]) [address] [place] [address] Urea nitrogen [Mass/Vol] 14 mg/dL Normal 7-25 [facility] Comment on above: Performed By: #### L [id number] #### [facility] ([facility]) [address] [place] [address] UREA NITROGEN/CREATININE (MASS RATIO) IN SER/PLAS 13.5 Normal [facility] Comment on above: Performed By: #### L [id number] #### [facility] ([facility]) [address] [place] [address] CBCon 06-29-2023 Erythrocyte distribution width (RBC) [Ratio] 15.3 % High 11.5-15.0 [facility] Comment on above: Performed By: #### L [id number] #### [facility] ([facility]) [address] [place] [address] ERYTHROCYTE MEAN CORPUSCULAR HEMOGLOBIN CONCENTRATION (G/DL) BY AUTOMATED 31.8 g/dL Low 32.0-35.0 [facility] Comment on above: Performed By: #### L [id number] #### [facility] ([facility]) [address] [place] [address] Hematocrit (Bld) [Volume fraction] 39.3 % Normal 36.0-48.0 [facility] Comment on above: Performed By: #### L [id number] #### [facility] ([facility]) [address] [place] [address] Hemoglobin (Bld) [Mass/Vol] 12.5 g/dL Normal 12.0-15.0 [facility] Comment on above: Performed By: #### L [id number] #### [facility] ([facility]) [address] [place] [address] MCH (RBC) [Entitic mass] 28.4 pg Normal 27.0-33.0 [facility] Comment on above: Performed By: #### L [id number] #### [facility] ([facility]) [address] [place] [address] MCV (RBC) [Entitic vol] 89.3 fL Normal 82.0-98.0 [facility] Comment on above: Performed By: #### L [id number] #### [facility] ([facility]) [address] [place] [address] PLATELETS (10*3/UL) IN BLOOD AUTOMATED COUNT 218 10*3/uL Normal 150-400 [facility] Comment on above: Performed By: #### L [id number] #### [facility] ([facility]) [address] [place] [address] RBC (Bld) [#/Vol] 4.40 10*6/uL Normal 3.80-5.00 [facility] Comment on above: Performed By: #### L [id number] #### [facility] ([facility]) [address] [place] [address] WBC (Bld) [#/Vol] 9.91 10*3/uL Normal 4.00-10.60 [facility] Comment on above: Performed By: #### L [id number] #### [facility] ([facility]) [address] [place] [address] COMPREHENSIVE METABOLIC PANE Pollo 06-29-2023 Albumin [Mass/Vol] 3.8 g/dL Normal 3.5-5.7 [facility] Comment on above: Performed By: #### L [id number] #### [facility] [address] [place] [address] ALP [Catalytic activity/Vol] 77 U/L Normal 34-104 [facility] Comment on above: Performed By: #### L [id number] #### [facility] ([facility]) [address] [place] [address] ALT [Catalytic activity/Vol] 23 U/L Normal 7-52 [facility] Comment on above: Performed By: #### L [id number] #### [facility] ([facility]) [address] [place] [address] Anion gap [Moles/Vol] 10 mmol/L Normal 7-20 [facility] Comment on above: Performed By: #### L [id number] #### [facility] ([facility]) [address] [place] [address] AST [Catalytic activity/Vol] 23 U/L Normal 13-39 [facility] Comment on above: Performed By: #### L [id number] #### [facility] ([facility]) [address] [place] [address] Bilirubin [Mass/Vol] 0.4 mg/dL Normal 0.3-1.0 [facility] Comment on above: Performed By: #### L [id number] #### [facility] [address] [place] [address] Calcium [Mass/Vol] 8.6 mg/dL Normal 8.6-10.3 [facility] Comment on above: Performed By: #### L [id number] #### [facility] [address] [place] [address] Chloride [Moles/Vol] 107 mmol/L Normal 98-107 [facility] Comment on above: Performed By: #### L [id number] #### [facility] [address] [place] [address] CO2 [Moles/Vol] 27 mmol/L Normal 21-31 [facility] Comment on above: Performed By: #### L [id number] #### [facility] ([facility]) [address] [place] [address] Creatinine [Mass/Vol] 1.01 mg/dL Normal 0.60-1.20 [facility] Comment on above: Performed By: #### L [id number] #### [facility] ([facility]) [address] [place] [address] GLOMERULAR FILTRATION RATE ML/MIN/1.73 SQ M.PREDICTED 62.9 mL/min/1.73m*2 Normal >60.0 [facility] Comment on above: Result Comment: The [facility]???s estimated glomerular filtration rate (eGFR) will [...] individuals. Performed By: #### L [id number] #### [facility] ([facility]) [address] [place] [address] Glucose [Mass/Vol] 148 mg/dL High 70-100 [facility] Comment on above: Performed By: #### L [id number] #### [facility] [address] [place] [address] Potassium [Moles/Vol] 4.2 mmol/L Normal 3.5-5.1 [facility] Comment on above: Performed By: #### L [id number] #### [facility] ([facility]) [address] [place] [address] Protein [Mass/Vol] 6.3 g/dL Normal 6.0-8.3 [facility] Comment on above: Performed By: #### L [id number] #### [facility] ([facility]) [address] [place] [address] Sodium [Moles/Vol] 140 mmol/L Normal 136-145 [facility] Comment on above: Performed By: #### L [id number] #### [facility] ([facility]) [address] [place] [address] Urea nitrogen [Mass/Vol] 10 mg/dL Normal 7-25 [facility] Comment on above: Performed By: #### L [id number] #### [facility] ([facility]) [address] [place] [address] UREA NITROGEN/CREATININE (MASS RATIO) IN SER/PLAS 9.9 Normal [facility] Comment on above: Performed By: #### L [id number] #### [facility] ([facility]) [address] [place] [address] CONSULTon 06-29-2023 CONSULT - Attestation signed by [...] tobacco use comes as a transfer from [facility] due to suspected NSTEMI. Patient was [...] Her troponins were elevated at 557 at [facility] and recheck here shows 0.07. Patient [...] content not included)... Normal [facility] HPon 06-29-2023 HP Interval Pre-Procedural H&P Reason for Consult: NSTEMI HPI: Vivian Vann is a 63 y.o. female with PMH of CAD s/p PCI to LAD (October 2021), HTN, HLD, COPD, tobacco use comes as a transfer from [facility] due to suspected NSTEMI. Patient was [...] Her troponins were elevated at 557 at [facility] and recheck here shows 0.07. Patient [...] QT Interval 476 QTC CALCULATION(BAZETT) 479 P Stephen 68 R-Stephen 25 T Wave Stephen 128 Impression Normal sinus rhythm Right atrial [...] content not included)... Normal [facility] LACTIC ACID WITH 4 HOUR REFL EXon 06-29-2023 LACTATE (MMOL/L) IN SER/PLAS 3.6 mmol/L Critically high 0.5-2.2 [facility] Comment on above: Result Comment: M-MT EVIOUS CRITICAL RESULT Previous result verified on 06/29/2023 1809 on specimen/case [id number] called with component Lactate blood venous for procedure Lactic acid with 4 hour reflex with value 2.7 mmol/L. Performed By: #### L [id number] #### [facility] (BEAKER) [address] [place] [address] LACTATE (MMOL/L) IN SER/PLAS 2.7 mmol/L Critically high 0.5-2.2 [facility] Comment on above: Performed By: #### L [id number] #### [facility] (BEAKER) [address] [place] [address] LACTATE (MMOL/L) IN SER/PLAS 2.5 mmol/L High 0.5-2.2 [facility] Comment on above: Performed By: #### L [id number] ####[facility] (BEAKER)[address] [place] [address] MAGNESIUMon 02-16-2024 Magnesium [Mass/Vol] 2.1 mg/dL Normal 1.9-2.7 [facility] Comment on above: Performed By: #### L [id number] ####[facility] ([facility])[address] [place] [address] Magnesium [Mass/Vol] 2.2 mg/dL Normal 1.9-2.7 [facility] Comment on above: Performed By: #### L [id number] #### [facility] ([facility]) [address] [facility] [place] [address] Magnesium [Mass/Vol] 1.7 mg/dL Low 1.9-2.7 [facility] Comment on above: Performed By: #### L [id number] #### [facility] ([facility]) [address] [facility] [place] [address] NURSNOTEon 06-29-2023 NURSNOTE Notified [place] [facility] Hospitalist critical lactate 2.7 no orders received said she would recheck lactate in 4 hrs Normal [facility] PHOSPHORUSon 06-29-2023 Magnesium [Mass/Vol] 3.5 mg/dL Normal 2.5-5.0 [facility] Comment on above: Performed By: #### L [id number] #### [facility] ([facility]) [address] [facility] [place] [address] PROTIME-INRon 06-29-2023 INR IN PPP BY COAGULATION ASSAY 0.98 Normal 0.90-1.10 [facility] Comment on above: Result Comment: ACCC [...] CHEST 1995;[id number]. Performed By: #### L [id number] ####[facility] ([facility])[address] [place] [address] PROTHROMBIN TIME (PT) IN PPP BY COAGULATION ASSAY 13.0 Seconds Normal 12.3-14.8 [facility] Comment on above: Performed By: #### L [id number] ####[facility] ([facility])[address] [place] [address] TROPONIN Ion 06-29-2023 Troponin I.cardiac [Mass/Vol] 0.06 ng/mL High 0.00-0.04 [facility] Comment on above: Performed By: #### L [id number] #### [facility] ([facility]) [address] [place] [address] Troponin I.cardiac [Mass/Vol] 0.07 ng/mL High 0.00-0.04 [facility] Comment on above: Performed By: #### L [id number] ####[facility] ([facility])[address] [place] [address] Troponin I.cardiac [Mass/Vol] 0.07 ng/mL High 0.00-0.04 [facility] Comment on above: Performed By: #### L [id number] #### [facility] ([facility]) [address] [place] [address] CBC W MANUAL DIFFon 08-25-19 23 ANISOCYTOSIS 1+ Normal [facility] Comment on above: Performed By: ###Daniela PONCE ####[facility] [address] [place], [place] [address]Ac. Nahed Yañez ATYPICAL LYMPH # Normal [facility] Comment on above: Performed By: ###Daniela PONCE ####[facility] [address] [place] [id number]. Nahed Yañez ATYPICAL LYMPH % Normal [facility] Comment on above: Performed By: #### C BCMAN ####[facility] [address] [place] [address]Dr. Yilan Yañez BAND # 0.2 103/ul Normal 0.0-0.3 [facility] Comment on above: Performed By: #### C BCMAN ####[facility] [address] [place] [address]Dr. Yilan Yañez BAND % 1 % Normal 0-5 [facility] Comment on above: Performed By: #### C BCISAIAH ####[facility] [address] [place], [place] [address]Dr. Nahed Yañez BASOM # 0.00 103/ul Normal 0.00-0.10 [facility] Comment on above: Performed By: #### C ROSARIO ####[facility] [address] [place], [place] [address]Dr. Nahed Yañez BASOM % 0.0 % Critically low 0.2-2.[address] [facility] Comment on above: Performed By: #### C ROSARIO ####[facility] [address] [place], [place] [address]Dr. Nahed Yañez BLAST # Normal [facility] Comment on above: Performed By: #### C ROSARIO ####[facility] [address] [place], [place] [address]Dr. Nahed Yañez BLAST % Normal [facility] Comment on above: Performed By: #### C BCISAIAH ####[facility] [address] [place] [address]Dr. Nahed Yañez CORRECTED WBC Normal 4.0-11.0 [facility] Comment on above: Performed By: #### C ROSARIO ####[facility] [address] [place], [place] [address]Dr. Nahed Yañez EOS # 0.00 103/ul Normal 0.00-0.70 [facility] Comment on above: Performed By: #### C BCISAIAH ####[facility] [address] [place], [place] [address]Bj. Nahed Yañez EOS% 0.0 % Critically low 0.9-7.[address] [facility] Comment on above: Performed By: #### C ROSARIO ####[facility] [address] [place] [id number]. Nahed Yañez HCT 33.9 % Critically low 36.0-48.[address] [facility] Comment on above: Performed By: #### C ROSARIO ####[facility] [address] [place], [place] [address]Yx. Nahed Yañez HGB 10.8 g/dl Critically low 12.0-16.[address] [facility] Comment on above: Performed By: #### C ROSARIO ####[facility] [address] [place] [id number]. Nahed Yañez HYPOCHROMASIA SLIGHT Normal [facility] Comment on above: Performed By: #### C ROSARIO ####[facility] [address] [place] [id number]. Nahed Yañez LYMPHM # 2.59 103/ul Normal 1.20-3.80 [facility] Comment on above: Performed By: #### Isabell PONCE ####[facility] [address] [place] [address]Dr. Nahed Yañez LYMPHM% 16.0 % Critically low 20.5-60.[address] [facility] Comment on above: Performed By: #### Isabell PONCE ####[facility] [address] [place] [id number]. Nahed Yañez MCH 28.5 pg Normal 26.7-34.0 [facility] Comment on above: Performed By: #### C ROSARIO ####[facility] [address] [place] [address]Dr. Nahed Yañez MCHC 31.9 g/dl Normal 29.9-35.2 [facility] Comment on above: Performed By: #### C ROSARIO ####[facility] [address] [place] [id number]. Nahed Yañez MCV 89.4 fL Normal 81.0-99.0 [facility] Comment on above: Performed By: #### C ROSARIO ####[facility] [address] [place] [id number]. Nahed Yañez METAMYELOCYTE # Normal [facility] Comment on above: Performed By: #### C ROSARIO ####[facility] [address] [place] [id number]. Nahed Yañez METAMYELOCYTE % Normal [facility] Comment on above: Performed By: #### C ROSARIO ####[facility] [address] [place] [id number]. Nahed Yañez MONOM# 1.30 103/ul Critically high 0.30-0.80 [facility] Comment on above: Performed By: #### C ROSARIO ####[facility] [address] [place] [address]Dr. Nahed Yañez MONOM% 8.0 % Normal 1.7-12.0 [facility] Comment on above: Performed By: #### C ROSARIO ####[facility] [address] [place] [id number]. Nahed Otilio MPV 9.8 fL Normal 9.5-13.5 [facility] Comment on above: Performed By: #### Isabell PONCE ####[facility] [address] [place] [id number]. Nahed Yañez MYELOCYTE # Normal [facility] Comment on above: Performed By: #### Isabell PONCE ####[facility] [address] [place] [id number]. Nahed Yañez MYELOCYTE % Normal [facility] Comment on above: Performed By: #### Isabell PONCE ####[facility] [address] [place], [place] [address]Dr. Nahed Yañez NRBC Normal [facility] Comment on above: Performed By: #### Isabell PONCE ####[facility] [address] [place] [id number]. Rosemarieashley Otilio PLT 302 103/ul Normal 150-450 [facility] Comment on above: Performed By: #### C ROSARIO ####[facility] [address] [place], [place] [address]Ze. Nahed Yañez RBC 3.79 106/ul Critically low 4.20-5.40 [facility] Comment on above: Performed By: #### C ROSARIO ####[facility] [address] [place], [place] [address]Gm. Nahed Yañez RDW 15.3 % Critically high 11.0-15.0 [facility] Comment on above: Performed By: #### C ROSARIO ####[facility] Vzdibsssyj5783 [place], [place] [address]Gk. Nahed Yañez SEG # 12.15 103/ul Critically high 1.40-6.50 [facility] Comment on above: Performed By: #### C ROSARIO ####[facility] Onfgrnxqrc9535 [place], [place] [address]Vy. Nahed Yañez SEG % 75.0 % Normal 43.0-75.0 [facility] Comment on above: Performed By: #### C ROSARIO ####[facility] Zchlepgpxz9342 [place], [place] [address]Iq. Nahed Otilio WBC 16.2 103/ul Critically high 4.0-11.0 [facility] Comment on above: Performed By: #### C ROSARIO ####[facility] Hbkyqvrqjc8816 [place], [place] [address]IhShaun Yañez POINT OF CARE GLUCOSEon 08-12 Glucose [Mass/Vol] 221 mg/dL Critically high 74-106 [facility] Comment on above: Performed By: #### P OCGLUC ####[facility] Dwuuijbnmu3064 [place], [place] [address]CzShaun Yañez PROF 14(COMP METB)on 023 Albumin [Mass/Vol] 2.2 g/dL Critically low 3.4-5.0 [facility] Comment on above: Performed By: #### C JUDY MULLER ####[facility] Pqiknycypv0044 [place] [id number] Yañez Albumin/Globulin [Mass ratio] 0.6 {ratio} Normal [facility] Comment on above: Performed By: #### C RENZO, JUDY ####[facility] Bnbukqpvqt[address] [place], [place] [address]Dr. Nahed Yañez ALP [Catalytic activity/Vol] 87 U/L Normal 46-116 [facility] Comment on above: Performed By: #### C RENZO, JUDY ####[facility] Xgqgwmvphp[address] [place], [place] [address]Dr. Nahed Yañez ALT [Catalytic activity/Vol] 17 U/L Normal 14-59 [facility] Comment on above: Performed By: #### C RENZO, JUDY ####[facility] Mqchjcvaom[address] [place], [place] [address]Dr. Nahed Yañez Anion gap [Moles/Vol] 9.4 mmol/L Normal [facility] Comment on above: Performed By: #### C RENZO, JUDY ####[facility] Vfsbmbmtog00[address] [place], [place] [address]Dr. Nahed Yañez AST [Catalytic activity/Vol] 13 U/L Critically low 15-37 [facility] Comment on above: Performed By: #### C RENZO, JUDY ####[facility] Sncimkyrfu[address] [place], [place] [address]Dr. Nahed Yañez Bilirubin [Mass/Vol] 0.2 mg/dL Normal 0.2-1.0 [facility] Comment on above: Performed By: #### C RENZO, JUDY ####[facility] Utewdqodqh64[address] [place], [place] [address]Dr. Nahed Otilio Calcium [Mass/Vol] 9.1 mg/dL Normal 8.5-10.1 [facility] Comment on above: Performed By: #### C RENZO, JUDY ####[facility] Hfunfxmkyd32[address] [place], [place] [address]Dr. Nahed Otilio Chloride [Moles/Vol] 103 mmol/L Normal 98-107 [facility] Comment on above: Performed By: #### C RENZO, JUDY ####[facility] Qnqxqikbya[address] [place], [place] [address]Dr. Nahed Yañez CO2 [Moles/Vol] 29.1 mmol/L Normal 21.0-32.0 [facility] Comment on above: Performed By: #### C RENZO, JUDY ####[facility] Rdbqtjkfdt1836 [place] [address]Dr. Nahed Yañez Creatinine [Mass/Vol] 1.05 mg/dL Critically high 0.55-1.02 [facility] Comment on above: Performed By: #### C RENZO, JUDY ####[facility] Ttgmrasccc0600 [place] [address]Dr. Nahed Yañez EGFR-AF MOSOTHO >60 Normal >=60 [facility] Comment on above: Performed By: #### C RENZO, JUDY ####[facility] Qirnphrtkn3941 [place] [address]Dr. Nahed Yañez EGFR-NON AF MOSOTHO 53 mL/min/1.73m2 Critically low >=60 [facility] Comment on above: Performed By: #### C RENZO, JUDY ####[facility] Jqiisywfum10[address] [place], [place] [address]Dr. Nahed Yañez Globulin (S) [Mass/Vol] 3.5 g/dL Normal [facility] Comment on above: Performed By: #### C RENZO, JUDY ####[facility] Jcwelrfbmy8366 [place] [address]Dr. Nahed Yañez Glucose [Mass/Vol] 121 mg/dL Critically high 74-106 [facility] Comment on above: Performed By: #### C RENZO, JUDY ####[facility] Ncqiipynwb3033 [place] [address]Dr. Nahed Yañez Potassium [Moles/Vol] 4.5 mmol/L Normal 3.5-5.1 [facility] Comment on above: Performed By: #### C RENZO, JUDY ####[facility] Oommotulmo2407 [place] [address]Dr. Nahed aYñez Protein [Mass/Vol] 5.7 g/dL Critically low 6.4-8.2 [facility] Comment on above: Performed By: #### C RENZO, JUDY ####[facility] Zufmpgzjse0312 [place] [address]Dr. Nahed Yañez Sodium [Moles/Vol] 137 mmol/L Normal 136-145 [facility] Comment on above: Performed By: #### C RENZO, JUDY ####[facility] Vfuhnmvgfc2384 [place] [address]Dr. Nahed Yañez Urea nitrogen [Mass/Vol] 24.0 mg/dL Critically high 7.0-18.0 [facility] Comment on above: Performed By: #### C RENZO, JUDY ####[facility] Yhrbvmjbbt30[address] [place], [place] [address]Dr. Nahed Yañez Urea nitrogen/Creatinine [Mass ratio] 22.9 mg/mg Normal [facility] Comment on above: Performed By: #### C RENZO, JUDY ####[facility] Bzkqkfpbqf[address] [place], [place] [address]Dr. Nahed Yañez THEOPHYLLINEon 08-24-2022 THEOPHYLLINE 18.2 ug/mL Normal 10.0-20.0 [facility] Comment on above: Performed By: #### C RENZO, JUDY ####[facility] Fykaevtzux0[address] [place], [place] [address]Dr. Nahed Yañez CBC W MANUAL DIFFon 08-24-19 23 ATYPICAL LYMPH # 0.20 103/ul Normal [facility] Comment on above: Performed By: #### C ROSARIO ####[facility] Qkriigpsxz3[address] [place], [place] [address]Dr. Nahed Otilio ATYPICAL LYMPH % 1 % Normal [facility] Comment on above: Performed By: #### C ROSARIO ####[facility] Kcpkqfqang8[address] [place], [place] [address]Dr. Nahed Yañez BAND # 0.0 103/ul Normal 0.0-0.3 [facility] Comment on above: Performed By: #### C ROSARIO ####[facility] Qlikupepah[address] [place], [place] [address]Dr. Nahed Yañez BAND % 0 % Normal 0-5 [facility] Comment on above: Performed By: #### C ROSARIO ####[facility] Csgwksxykm0909 [place] [address]Dr. Nahed Yañez BASOM # 0.00 103/ul Normal 0.00-0.10 [facility] Comment on above: Performed By: #### C BCMAN ####[facility] Gyyqufcsfd1210 [place] [address]Dr. Nahed Yañez BASOM % 0.0 % Critically low 0.2-2.[address] [facility] Comment on above: Performed By: #### C BCMAN ####[facility] Llfyqzuhbv4187 [place] [address]Dr. Nahed Yañez BLAST # Normal [facility] Comment on above: Performed By: #### C BCISAIAH ####[facility] Pyxtmnxsja9644 [place] [address]Dr. Nahed Yañez BLAST % Normal [facility] Comment on above: Performed By: #### C BCISAIAH ####[facility] Efytruokmw[address] [place], [place] [address]Dr. Nahed Yañez CORRECTED WBC Normal 4.0-11.0 [facility] Comment on above: Performed By: #### C BCISAIAH ####[facility] Tqkyxvpdlv3221 [place] [address]Dr. Nahed Yañez EOS # 0.00 103/ul Normal 0.00-0.70 [facility] Comment on above: Performed By: #### C BCISAIAH ####[facility] Upupgaewrk2079 [place] [address]Dr. Nahed Yañez EOS% 0.0 % Critically low 0.9-7.[address] [facility] Comment on above: Performed By: #### C BCMAN ####[facility] Pvcozlcriw4046 [place] [address]Dr. Nahed Yañez HCT 33.5 % Critically low 36.0-48.[address] [facility] Comment on above: Performed By: #### C BCMAN ####[facility] Wfaubfzkhy7312 [place] [address]Dr. Nahed Yañez HGB 10.7 g/dl Critically low 12.0-16.0 [facility] Comment on above: Performed By: #### C ROSARIO ####[facility] Hjlgrjhsiy2784 [place] [address]Dr. Nahed Yañez LYMPHM # 1.39 103/ul Normal 1.20-3.80 [facility] Comment on above: Performed By: #### C ROSARIO ####[facility] Vcnbadplui0618 [place] [address]Dr. Nahed Yañez LYMPHM% 7.0 % Critically low 20.5-60.0 [facility] Comment on above: Performed By: #### C ROSARIO ####[facility] Zicmtrzxkn2472 [place] [address]Dr. Nahed Yañez MCH 28.5 pg Normal 26.7-34.0 [facility] Comment on above: Performed By: #### C ROSARIO ####[facility] Fatuvrkpgu5275 [place] [address]Dr. Nahed Yañez MCHC 31.9 g/dl Normal 29.9-35.2 [facility] Comment on above: Performed By: #### C ROSARIO ####[facility] Mtnatfscyk5391 [place] [address]Dr. Nahed Yañez MCV 89.1 fL Normal 81.0-99.0 [facility] Comment on above: Performed By: #### C ROSARIO ####[facility] Beebbouior7268 [place] [address]Dr. Nahed Yañez METAMYELOCYTE # Normal [facility] Comment on above: Performed By: #### C ROSARIO ####[facility] Yeshorvjaw8944 [place] [address]Dr. Nahed Yañez METAMYELOCYTE % Normal [facility] Comment on above: Performed By: #### C ROSARIO ####[facility] Xhhjzlbfqb1885 [place] [address]Dr. Nahed Yañez MONOM# 0.40 103/ul Normal 0.30-0.80 [facility] Comment on above: Performed By: #### C ROSARIO ####[facility] Fmvmsvdgep6192 [place] [address]Dr. Nahed Yañez MONOM% 2.0 % Normal 1.7-12.0 [facility] Comment on above: Performed By: #### C ROSARIO ####[facility] Dsvurnuwtj3214 [place] [address]Dr. Nahed Yañez MPV 10.0 fL Normal 9.5-13.5 [facility] Comment on above: Performed By: #### C ROSARIO ####[facility] Bsamhafeho3144 [place] [address]Dr. Nahed Yañez MYELOCYTE # Normal [facility] Comment on above: Performed By: #### C ROSARIO ####[facility] Pdrqriogns8697 [place] [address]Dr. Nahed Yañez MYELOCYTE % Normal [facility] Comment on above: Performed By: #### C ROSARIO ####[facility] Bwtmfwcegj4191 [place] [address]Dr. Nahed Yañez NRBC Normal [facility] Comment on above: Performed By: #### C ROSARIO ####[facility] Jaxxhdrnxy0043 [place] [address]Dr. Nahed Yañez PLT 338 103/ul Normal 150-450 [facility] Comment on above: Performed By: #### C ROSARIO ####[facility] Lhelambwna8897 [place] [address]Dr. Nahed Yañez RBC 3.76 106/ul Critically low 4.20-5.40 [facility] Comment on above: Performed By: #### C ROSARIO ####[facility] Hqlkisqpku6347 [place] [address]Dr. Nahed Yañez RDW 15.3 % Critically high 11.0-15.0 [facility] Comment on above: Performed By: #### C ROSARIO ####[facility] Lnrbutuevs5134 [place] [address]Dr. Nahed Yañez SEG # 17.91 103/ul Critically high 1.40-6.[address] [facility] Comment on above: Performed By: #### C ROSARIO ####[facility] Nrcdmvudsu2147 [place] [address]Dr. Nahed Yañez SEG % 90.0 % Critically high 43.0-75.0 [facility] Comment on above: Performed By: #### C BCMAN ####[facility] Drlbjxcwlm3907 [place] [address]Dr. Nahed Yañez WBC 19.9 103/ul Critically high 4.0-11.0 [facility] Comment on above: Performed By: #### C BCMAN ####[facility] Wxdjyldqhf5097 [place] [address]Dr. Nahed Otilio POINT OF CARE GLUCOSEon 08-12 Glucose [Mass/Vol] 200 mg/dL Critically high 74-106 [facility] Comment on above: Performed By: #### P OCGLUC ####[facility] Ogoeuzmzli2671 [place] [address]Dr. Nahed Yañez Glucose [Mass/Vol] 131 mg/dL Critically high 74-106 [facility] Comment on above: Performed By: #### P OCGLUC ####[facility] Mwpbuakjwe2618 [place] [address]Dr. Nahed Yañez Glucose [Mass/Vol] 176 mg/dL Critically high 74-106 [facility] Comment on above: Performed By: #### P OCGLUC ####[facility] Zohrhbpoai7038 [place] [address]Dr. Rosemarieashley Yañez PROF 14(COMP METB)on 023 Albumin [Mass/Vol] 2.2 g/dL Critically low 3.4-5.0 [facility] Comment on above: Performed By: #### T RAFITA CMP ####[facility] Khgfmhttpz0215 [place] [address]Dr. Nahed Otilio Albumin/Globulin [Mass ratio] 0.6 {ratio} Normal [facility] Comment on above: Performed By: #### Nydia ELELR, CMP ####[facility] Vrxnlvcicn8235 [place] [address]Dr. Nahed Otiilo ALP [Catalytic activity/Vol] 101 U/L Normal 46-116 [facility] Comment on above: Performed By: #### Nydia ELLER CMP ####[facility] Erazrvbttr9859 [place] [address]Dr. Nahed Yañez ALT [Catalytic activity/Vol] 19 U/L Normal 14-59 [facility] Comment on above: Performed By: #### Nydia ELLER, CMP ####[facility] Ylgirpbfws1133 [place] [address]Dr. Nahed Yañez Anion gap [Moles/Vol] 12.0 mmol/L Normal [facility] Comment on above: Performed By: #### Nydia ELLER CMP ####[facility] Mzwcsctidn6725 [place] [address]Dr. Nahed Yañez AST [Catalytic activity/Vol] 14 U/L Critically low 15-37 [facility] Comment on above: Performed By: #### Nydia ELLER CMP ####[facility] Jdpnhcnkox17[address] [place], [place] [address]Dr. Nahed Yañez Bilirubin [Mass/Vol] 0.2 mg/dL Normal 0.2-1.0 [facility] Comment on above: Performed By: #### Nydia ELLER CMP ####[facility] Owvjiwfapz05[address] [place], [place] [address]Dr. Nahed Otilio Calcium [Mass/Vol] 9.5 mg/dL Normal 8.5-10.1 [facility] Comment on above: Performed By: #### Nydia ELLER, CMP ####[facility] Rilxiydoab9[address] [place], [place] [address]Dr. Nahed Yañez Chloride [Moles/Vol] 105 mmol/L Normal 98-107 [facility] Comment on above: Performed By: #### Nydia ELLER CMP ####[facility] Kljohnivgb6[address] [place], [place] [address]Dr. Nahed Yañez CO2 [Moles/Vol] 27.9 mmol/L Normal 21.0-32.0 [facility] Comment on above: Performed By: #### Nydia ELLER, CMP ####[facility] Bbnqyhqynv9[address] [place], [place] [address]Dr. Nahed Yñaez Creatinine [Mass/Vol] 1.08 mg/dL Critically high 0.55-1.02 [facility] Comment on above: Performed By: #### Nydia ELLER, CMP ####[facility] Qjdqbjavwz7356 [place] [address]Dr. Rosemarieashley Otilio EGFR-AF MOSOTHO >60 Normal >=60 [facility] Comment on above: Performed By: #### Nydia ELLER CMP ####[facility] Uhsfsslznz6368 [place] [address]Dr. Nahed Yañez EGFR-NON AF MOSOTHO 52 mL/min/1.73m2 Critically low >=60 [facility] Comment on above: Performed By: #### Nydia ELLER CMP ####[facility] Kvsylswvkh7[address] [place], [place] [address]Dr. Nahed Yañez Globulin (S) [Mass/Vol] 3.7 g/dL Normal [facility] Comment on above: Performed By: #### Nydia ELLER CMP ####[facility] Cskoulcida[address] [place], [place] [address]Dr. Nahed Yañez Glucose [Mass/Vol] 182 mg/dL Critically high 74-106 [facility] Comment on above: Performed By: #### Nydia ELLER CMP ####[facility] Jzbvqvxrln723[address] [place], [place] [address]Dr. Nahed Yañez Potassium [Moles/Vol] 3.9 mmol/L Normal 3.5-5.1 [facility] Comment on above: Performed By: #### Nydia ELLER CMP ####[facility] Tfkjxhtzkg7355[address] [place], [place] [address]Dr. Nahed Yañez Protein [Mass/Vol] 5.9 g/dL Critically low 6.4-8.2 [facility] Comment on above: Performed By: #### Nydia ELLER CMP ####[facility] Vbqivhwvdn2[address] [place], [place] [address]Dr. Nahed Yañez Sodium [Moles/Vol] 141 mmol/L Normal 136-145 [facility] Comment on above: Performed By: #### Nydia ELLER CMP ####[facility] Xtrjpctequ664[address] [place], [place] [address]Dr. Nahed Yañez Urea nitrogen [Mass/Vol] 20.0 mg/dL Critically high 7.0-18.0 [facility] Comment on above: Performed By: #### Nydia ELLER, CMP ####[facility] Pbjkuqtdjl4525[address] [place], [place] [address]Dr. Nahed Yañez Urea nitrogen/Creatinine [Mass ratio] 18.5 mg/mg Normal [facility] Comment on above: Performed By: #### Nydia ELLER, CMP ####[facility] Eivgkovdjw16[address] [place], [place] [address]Dr. Nahed Yañez THEOPHYLLINEon 08-23-2022 THEOPHYLLINE 22.9 ug/mL Critically high 10.0-20.[address] [facility] Comment on above: Performed By: #### Nydia ELLER CMP ####[facility] Uvjnpbtcbw[address] [place], [place] [address]Dr. Nahed Yañez CBC AUTO DIFFon 08-22-2022 BASO # 0.0 103/ul Normal 0.0-0.1 [facility] Comment on above: Performed By: #### C BC ####[facility] Gfkicyroqg95[address] [place], [place] [address]Dr. Nahed Yañez Basophils/100 WBC (Bld) 0.1 % Critically low 0.2-2.0 [facility] Comment on above: Performed By: #### C BC ####[facility] Ermumkdhkn15[address] [place], [place] [address]Dr. Nahed Yañez EO # 0.0 103/ul Normal 0.0-0.7 [facility] Comment on above: Performed By: #### C BC ####[facility] Ychkasjlgw[address] [place], [place] [address]Dr. Nahed Yañez Eosinophils/100 WBC (Bld) 0.0 % Critically low 0.9-7.0 [facility] Comment on above: Performed By: #### C BC ####[facility] Zcsswmkgmp5014[address] [place], [place] [address]Dr. Nahed Yañez Erythrocyte distribution width (RBC) [Ratio] 15.1 % Critically high 11.0-15.0 [facility] Comment on above: Performed By: #### C BC ####[facility] Xlnzuyvbii1001 [place] [address]Dr. Nahed Yañez Hematocrit (Bld) [Volume fraction] 31.4 % Critically low 36.0-48.0 [facility] Comment on above: Performed By: #### C BC ####[facility] Tfyxhndrba3123 [place] [address]Dr. Nahed Yañez Hemoglobin (Bld) [Mass/Vol] 10.2 g/dL Critically low 12.0-16.0 [facility] Comment on above: Performed By: #### C BC ####[facility] Oweaxdgpii18[address] [place], [place] [address]Dr. Nahed Yañez IG # 0.08 10e3/ul Critically high 0.00-0.03 [facility] Comment on above: Performed By: #### C BC ####[facility] Wafueibayo424[address] [place], [place] [address]DrShaun Yañez IG % 0.6 % Critically high 0.0-0.5 [facility] Comment on above: Performed By: #### C BC ####[facility] Bhqwsnlqgm39[address] [place], [place] [address]DrShaun Nahed Otilio LYMPH # 0.9 103/ul Critically low 1.2-3.8 [facility] Comment on above: Performed By: #### C BC ####[facility] Hvvbygqzcr1728 [place] [address]DrShaun Nahed Otilio Lymphocytes/100 WBC (Bld) 6.1 % Critically low 20.5-60.0 [facility] Comment on above: Performed By: #### C BC ####[facility] Lnlwcageqm3039 [place] [address]DrShaun Rosemarieashley Yañez MANUAL DIFF REQ NO Normal [facility] Comment on above: Performed By: #### C BC ####[facility] Czdbzqytjc6[address] [place], [place] [address]DrShaun Rosemarieashley Yañez MCH (RBC) [Entitic mass] 28.3 pg Normal 26.7-34.0 [facility] Comment on above: Performed By: #### C BC ####[facility] Kdswrsyief3566 [place] [id number]. Nahed Otilio MCHC (RBC) [Mass/Vol] 32.5 g/dL Normal 29.9-35.2 [facility] Comment on above: Performed By: #### C BC ####[facility] Wvzpzeqxub2068 [place] [address]Dr. Nahed Yañez MCV (RBC) [Entitic vol] 87.0 fL Normal 81.0-99.0 [facility] Comment on above: Performed By: #### C BC ####[facility] Xzyowietzz65[address] [place], [place] [address]Dr. Nahed Yañez MONO # 0.7 103/ul Normal 0.3-0.8 [facility] Comment on above: Performed By: #### C BC ####[facility] Qvgdnheued24[address] [place], [place] [address]Dr. Nahed Yañez Monocytes/100 WBC (Bld) 5.1 % Normal 1.7-12.0 [facility] Comment on above: Performed By: #### C BC ####[facility] Bmwpflquud6[address] [place], [place] [address]Dr. Nahed Yañez NEUT # 12.2 103/ul Critically high 1.4-6.5 [facility] Comment on above: Performed By: #### C BC ####[facility] Duexhlljef[address] [place], [place] [address]Dr. Nahed Yañez Neutrophils/100 WBC (Bld) 88.1 % Critically high 43.0-75.0 [facility] Comment on above: Performed By: #### C BC ####[facility] Ewgkbmnknr[address] [place], [place] [address]DrShaun Yañez Platelet mean volume (Bld) [Entitic vol] 10.2 fL Normal 9.5-13.5 [facility] Comment on above: Performed By: #### C BC ####[facility] Okqvpektnx119[address] [place], [place] [address]Dr. Nahed Yañez PLT 271 103/ul Normal 150-450 [facility] Comment on above: Performed By: #### C BC ####[facility] Jhtswxtyiy0453 [place] [address]Dr. Nahed Yañez RBC 3.61 106/ul Critically low 4.20-5.40 [facility] Comment on above: Performed By: #### C BC ####[facility] Dgqytrnxch4446 [place] [address]Dr. Nahed Otilio WBC 13.9 103/ul Critically high 4.0-11.0 [facility] Comment on above: Performed By: #### C BC ####[facility] Ykxkhhpyoq0432 [place] [id number]. Nahed Otilio CULTURE URINEon 08-22-2022 CULTURE URINE Culture Observations : LIGHT GROWTH OF MIXED GENITAL MIGUEL. NO POTENTIAL PATHOGENS SEEN. Normal [facility] Comment on above: Performed By: #### U RCX ####[facility] Urmfpizgal8302 [place] [address]DrShaun Yañez POINT OF CARE GLUCOSEon 08-12 Glucose [Mass/Vol] 252 mg/dL Critically high 74-106 [facility] Comment on above: Performed By: #### P OCGLUC ####[facility] Mnpultgejw1935 [place] [address]Dr. Nahed Yañez Glucose [Mass/Vol] 293 mg/dL Critically high 74-106 [facility] Comment on above: Performed By: #### P OCGLUC ####[facility] Mlgkvljyhi4787 [place] [address]Dr. Nahed Yañez Glucose [Mass/Vol] 292 mg/dL Critically high 74-106 [facility] Comment on above: Performed By: #### P OCGLUC ####[facility] Rzxgyibxou[address] [place] [address]Dr. Nahed Yañez PROF 14(COMP METB)on 023 Albumin [Mass/Vol] 2.1 g/dL Critically low 3.4-5.0 [facility] Comment on above: Performed By: #### C MP ####[facility] Nlsicqsfxf[address] [place], [place] [address]Dr. Nahed Otilio Albumin/Globulin [Mass ratio] 0.5 {ratio} Normal [facility] Comment on above: Performed By: #### C MP ####[facility] Xlxdjatydg5964 [place] [address]Dr. Nahed Otilio ALP [Catalytic activity/Vol] 92 U/L Normal 46-116 [facility] Comment on above: Performed By: #### C MP ####[facility] Gcaqvcejuf6059 [place] [address]Dr. Nahed Otilio ALT [Catalytic activity/Vol] 19 U/L Normal 14-59 [facility] Comment on above: Performed By: #### C MP ####[facility] Mfkatjupkp87[address] [place], [place] [address]Dr. Nahed Yañez Anion gap [Moles/Vol] 15.9 mmol/L Normal [facility] Comment on above: Performed By: #### C MP ####[facility] Gbmttoxbuz22[address] [place], [place] [address]Dr. Rosemarieashley Otilio AST [Catalytic activity/Vol] 8 U/L Critically low 15-37 [facility] Comment on above: Performed By: #### C MP ####[facility] Ezrjbgfszt[address] [place], [place] [address]Dr. Nahed Yañez Bilirubin [Mass/Vol] 0.3 mg/dL Normal 0.2-1.0 [facility] Comment on above: Performed By: #### C MP ####[facility] Oobbazvbql7411[address] [place], [place] [address]Dr. Nahed Yañez Calcium [Mass/Vol] 9.4 mg/dL Normal 8.5-10.1 [facility] Comment on above: Performed By: #### C MP ####[facility] Lvgifvjmxk2068[address] [place], [place] [address]Dr. Nahed Yañez Chloride [Moles/Vol] 101 mmol/L Normal 98-107 [facility] Comment on above: Performed By: #### C MP ####[facility] Tywindrnie85[address] [place], [place] [address]Dr. Nahed Yañez CO2 [Moles/Vol] 22.5 mmol/L Normal 21.0-32.0 [facility] Comment on above: Performed By: #### C MP ####[facility] Njsugupfqs7732 [place] [address]Dr. Nahed Yañez Creatinine [Mass/Vol] 1.16 mg/dL Critically high 0.55-1.02 [facility] Comment on above: Performed By: #### C MP ####[facility] Wamhvztrzv9917 [place] [address]Dr. Nahed Yañez EGFR-AF MOSOTHO 58 mL/min/1.73m2 Critically low >=60 [facility] Comment on above: Performed By: #### C MP ####[facility] Fjwnzwlvja8[address] [place], [place] [address]Dr. Nahed Yañez EGFR-NON AF MOSOTHO 47 mL/min/1.73m2 Critically low >=60 [facility] Comment on above: Performed By: #### C MP ####[facility] Cpjddjqxhi7501[address] [place], [place] [address]Dr. Nahed Yañez Globulin (S) [Mass/Vol] 4.2 g/dL Normal [facility] Comment on above: Performed By: #### C MP ####[facility] Kagwnsvdhq8122[address] [place], [place] [address]Dr. Nahed Yañez Glucose [Mass/Vol] 409 mg/dL Critically high 74-106 [facility] Comment on above: Performed By: #### C MP ####[facility] Ipcmekbabv480[address] [place], [place] [address]Dr. Nahed Yañez Potassium [Moles/Vol] 3.4 mmol/L Critically low 3.5-5.1 [facility] Comment on above: Performed By: #### C MP ####[facility] Bjbuphaweb3652[address] [place], [place] [address]Dr. Nahed Yañez Protein [Mass/Vol] 6.3 g/dL Critically low 6.4-8.2 [facility] e [facility] Comment on above: Performed By: #### C MP ####[facility] Zmhyvjeoui[address] [place], [place] [address]DrShaun Yañez Sodium [Moles/Vol] 136 mmol/L Normal 136-145 [facility] Comment on above: Performed By: #### C MP ####[facility] Ojukoxljso67[address] [place], [place] [address]Dr. Nahed Yañez Urea nitrogen [Mass/Vol] 16.0 mg/dL Normal 7.0-18.0 [facility] Comment on above: Performed By: #### C MP ####[facility] Htnorjawoc9103[address] [place], [place] [address]Dr. Nahed Yañez Urea nitrogen/Creatinine [Mass ratio] 13.8 mg/mg Normal [facility] Comment on above: Performed By: #### C MP ####[facility] Woduqxassz0888[address] [place], [place] [address]Dr. Nahed Yañez THEOPHYLLINEon 08-22-2022 THEOPHYLLINE 13.4 ug/mL Normal 10.0-20.0 [facility] Comment on above: Performed By: #### T RAFITA ####[facility] Segkmxwysg9318[address] [place], [place] [address]Dr. Nahed Yañez UA RANDOM W/MICROSCOPICon BACTERIA NONE SEEN Normal NONE SEEN [facility] Comment on above: Performed By: #### U AMIC ####[facility] Zakwzhlsun9026[address] [place], [place] [address]Dr. Nahed Yañez Bilirubin Ql (U) Negative Normal NEGATIVE [facility] Comment on above: Performed By: #### U AMIC ####[facility] Sycqjgqrcn[address] [place], [place] [address]Dr. Nahed Yañez CAST NONE SEEN Normal NONE SEEN [facility] Comment on above: Performed By: #### U AMIC ####[facility] Veidgygebg[address] [place], [place] [address]Dr. Nahed Yañez Clarity (U) CLEAR Normal CLEAR [facility] Comment on above: Performed By: #### U AMIC ####[facility] Pyivdjgblt3159[address] [place], [place] [address]Dr. Nahed Yañez Color (U) LT. YELLOW Normal YELLOW [facility] Comment on above: Performed By: #### U AMIC ####[facility] Ocokheiflt2176 [place] [address]Dr. Nahed Yañez Crystals LM Nom (Urine sed) NONE SEEN Normal NONE SEEN [facility] Comment on above: Performed By: #### U AMIC ####[facility] Exhheyingd6769 [place] [address]Dr. Nahed Yañez Epithelial cells LM Ql (Urine sed) RARE Normal NONE SEEN /RARE [facility] Comment on above: Performed By: #### U AMIC ####[facility] Hcytwwnxrl7613 [place] [address]Dr. Nahed Yañez Glucose Ql (U) 100 mg/dl Abnormal NEGATIVE [facility] Comment on above: Performed By: #### U AMIC ####[facility] Lyvvohcilf9367[address] [place], [place] [address]Dr. Nahed Yañez Hemoglobin Ql (U) Negative Normal NEGATIVE The [facility] Comment on above: Performed By: #### U AMIC ####[facility] Bsmmzwpexd865[address] [place], [place] [address]Dr. Nahed Yañez Ketones Ql (U) Negative Normal NEGATIVE [facility] Comment on above: Performed By: #### U AMIC ####[facility] Dhbzefchfv3056[address] [place], [place] [address]Dr. Nahed Yañez LEUKOCYTES Negative Normal NEGATIVE [facility] Comment on above: Performed By: #### U AMIC ####[facility] Dzrytvnlma7928[address] [place], [place] [address]Dr. Nahed Yañez MUCOUS NONE SEEN Normal NONE SEEN [facility] Comment on above: Performed By: #### U AMIC ####[facility] Rkzbkqmbqc4601 [place] [address]Dr. Nahed Yañez Nitrite Ql (U) Negative Normal NEGATIVE [facility] Comment on above: Performed By: #### U AMIC ####[facility] Tbbvqdxcmx9846 [place] [address]Dr. Nahed Yañez pH (U) 5.5 [pH] Normal 5-9 [facility] Comment on above: Performed By: #### U AMIC ####[facility] Hvmcxkzczn6578 [place] [address]Dr. Nahed Yañez RBC NONE SEEN Abnormal 0-2 [facility] Comment on above: Performed By: #### U AMIC ####[facility] Wpvtckosdv5903 [place] [address]Dr. Nahed Yañez SPEC GRAVITY 1.020 Normal 1.005-<=1.02 5 [facility] Comment on above: Performed By: #### U AMIC ####[facility] Eirpdlesic7578 [place] [address]Dr. Nahed Yañez UA PROTEIN Negative Normal NEGATIVE/ TRACE [facility] Comment on above: Performed By: #### U AMIC ####[facility] Mwwvlnvtsj0729 [place] [address]Dr. Nahed Yañez Urobilinogen Qn (U) 0.2 {Alem'U}/dL Normal 0.2 - 1. 0 [facility] Comment on above: Performed By: #### U AMIC ####[facility] Sukyndnpku7945[address] [place], [place] [address]Dr. Nahed Yañez WBC NONE SEEN Normal NONE SEEN [facility] Comment on above: Performed By: #### U AMIC ####[facility] Oazxblpkxw188[address] [place], [place] [address]Dr. Nahed Yañez BLOOD GASES BTYon 08-21-2022 02 MODE ROOM AIR Normal [facility] Comment on above: Performed By: #### A BG ####[facility] Aeijpyqiok4967[address] [place], [place] [address]Dr. Nahed Yañez ALLENS TEST Positive Normal [facility] Comment on above: Performed By: #### A BG ####[facility] Esofgagbtw4299[address] [place], [place] [address]Dr. Nahed Yañez Base excess Calc (Bld) [Moles/Vol] 3.2 mmol/L Critically high -2.0-2.0 [facility] Comment on above: Performed By: #### A BG ####[facility] Eicjkfplmi5633[address] [place], [place] [address]Dr. Nahed Yañez BIPAP PRESSURE Normal [facility] Comment on above: Performed By: #### A BG ####[facility] Avhxlnqahu3259 [place] [address]Dr. Nahed Yañez CPAP Normal [facility] Comment on above: Performed By: #### A BG ####[facility] Fkylxgsauf2551 [place] [address]Dr. Nahed Yañez FIO2 Normal [facility] Comment on above: Performed By: #### A BG ####[facility] Bimjuvzlpk4733 [place] [address]Dr. Nahed Yañez HCO3 (Bld) [Moles/Vol] 26.8 mmol/L Critically high 22.0-26 .0 [facility] Comment on above: Performed By: #### A BG ####[facility] Fysozheqhg8[address] [place], [place] [address]Dr. Nahed Yañez LPM Normal [facility] Comment on above: Performed By: #### A BG ####[facility] Eklaldxfaq7247[address] [place], [place] [address]Dr. Nahed Yañez MINUTE VOLUME Normal [facility] Comment on above: Performed By: #### A BG ####[facility] Slmbpyajfs3841[address] [place], [place] [address]Dr. Nahed Yañez Oxygen (Bld) [Partial pressure] 55.1 mm[Hg] Critically low 80.0-100.0 [facility] Comment on above: Performed By: #### A BG ####[facility] Gxypldwkmd9137[address] [place], [place] [address]Dr. Nahed Yañez Oxygen saturation in Blood 90.2 % Critically low 95.0-100.0 [facility] Comment on above: Performed By: #### A BG ####[facility] Xydmbjqmsf0219[address] [place], [place] [address]Dr. Nahed Yañez PCO2 36.7 mmHg Normal 35.0-45.0 [facility] Comment on above: Performed By: #### A BG ####[facility] Jcbqlhbaek2287[address] [place], [place] [address]Dr. Nahed Yañez PEEP Normal [facility] Comment on above: Performed By: #### A BG ####[facility] Yhhtapsrfk6346 [place] [address]Dr. Nahed Yañez pH (Bld) 7.472 [pH] Critically high 7.350-7.450 [facility] Comment on above: Performed By: #### A BG ####[facility] Dfdpszbbvf9813 [place] [address]Dr. Nahed Yañez PIP Normal [facility] Comment on above: Performed By: #### A BG ####[facility] Dcgaecirgn8710 [place] [address]Dr. Nahed Yañez [facility] Comment on above: Performed By: #### A BG ####[facility] Ntwehwjcmo3901[address] [place], [place] [address]Dr. Nahed Yañez PUNCTURE SITE LR Normal [facility] Comment on above: Performed By: #### A BG ####[facility] Eelmvjzphi[address] [place], [place] [address]Dr. Nahed Yañez [facility] Comment on above: Performed By: #### A BG ####[facility] Hkuwcxmnmv76[address] [place], [place] [address]Dr. Nahed Yañez [facility] Comment on above: Performed By: #### A BG ####[facility] Qvqooucqgt[address] [place], [place] [address]Dr. Nahed Yañez [facility] Comment on above: Performed By: #### A BG ####[facility] Otchpnjumw[address] [place], [place] [address]Dr. Nahed Yañez BNPon 08-21-2022 Natriuretic peptide B (Bld) [Mass/Vol] 131.0 pg/mL Normal <=900.0 [facility] Comment on above: Performed By: #### B BANKING SUPERVISOR ####[facility] Lhtqdhkjqp9[address] [place], [place] [address]Dr. Nahed Yañez CARDIAC FRANCISCO 3-6on 3 CK [Catalytic activity/Vol] 17 U/L Critically low 26-192 [facility] Comment on above: Performed By: #### C MREP ####[facility] Kmotnnmdss1226 [place] [address]Dr. Nahed Yañez CK.MB [Mass/Vol] ng/mL Normal <=3.60 [facility] Comment on above: Performed By: #### C MREP ####[facility] Qybkzryzzi5079 [place] [address]Dr. Nahed Yañez HSTROP 25.1 pg/mL Normal 4.0-51.3 [facility] Comment on above: Result Comment: CUT- OFF POINTS HAVE BEEN ESTABLISHED BASED ON THE FOURTH UNIVERSAL DEFINITIONS OF MYOCARDIALINFARCTION. THE UPPER REFERENCE LIMIT (URL) OF TROPONIN, DEFINED THE 99TH PERCENTILE OFcTnI DISTRIBUTION IN A REFERENCE POPULATION, HAS BEEN CONFIRMED THE DECISION THRESHOLDFOR [place] DIAGNOSIS. Performed By: #### C MREP ####[facility] Vuebuctsdc1511 [place] [id number]. Nahed Yañez CARDIAC FRANCISCO ADMITon 023 CK [Catalytic activity/Vol] 39 U/L Normal 26-192 [facility] Comment on above: Performed By: #### B RENZO, CMADM ####[facility] Ikyrrnknni1142 [place] [address]Dr. Nahed Yañez CK.MB [Mass/Vol] ng/mL Normal <=3.60 [facility] Comment on above: Performed By: #### B RENZO, CMADM ####[facility] Gkacwsigye0070 [place] [address]Dr. Nahed Yañez HSTROP 24.4 pg/mL Normal 4.0-51.3 [facility] Comment on above: Result Comment: CUT- OFF POINTS HAVE BEEN ESTABLISHED BASED ON THE FOURTH UNIVERSAL DEFINITIONS OF MYOCARDIALINFARCTION. THE UPPER REFERENCE LIMIT (URL) OF TROPONIN, DEFINED THE 99TH PERCENTILE OFcTnI DISTRIBUTION IN A REFERENCE POPULATION, HAS BEEN CONFIRMED THE DECISION THRESHOLDFOR [place] DIAGNOSIS. Performed By: #### B RENZO, CMADM ####[facility] Uizqmpauih9179 [place] [phone]. Nahed Yañez ANDRE 48 ng/mL Normal 9-82 [facility] Comment on above: Performed By: #### B RENZO, CMADM ####[facility] Yvolvljkuh7042 [place] [address]Dr. Nahed Otilio CBC AUTO DIFFon 08-21-2022 BASO # 0.0 103/ul Normal 0.0-0.1 [facility] Comment on above: Performed By: #### C BC ####[facility] Ijqugbnimq4[address] [place], [place] [address]Dr. Nahed Yañez Basophils/100 WBC (Bld) 0.2 % Normal 0.2-2.0 [facility] Comment on above: Performed By: #### C BC ####[facility] Klohtyzcje[address] [place], [place] [address]Dr. Nahed Yañez EO # 0.3 103/ul Normal 0.0-0.7 [facility] Comment on above: Performed By: #### C BC ####[facility] Arimvzutkw4961[address] [place], [place] [address]Dr. Nahed Yañez Eosinophils/100 WBC (Bld) 1.5 % Normal 0.9-7.0 [facility] Comment on above: Performed By: #### C BC ####[facility] Okbfihijjw2408[address] [place], [place] [address]Dr. Nahed Yañez Erythrocyte distribution width (RBC) [Ratio] 15.0 % Normal 11.0-15.0 [facility] Comment on above: Performed By: #### C BC ####[facility] Cgdznzgyxp20[address] [place], [place] [address]Dr. Nahed Yañez Hematocrit (Bld) [Volume fraction] 41.4 % Normal 36.0-48.0 [facility] Comment on above: Performed By: #### C BC ####[facility] Hzvsblrzjt589[address] [place], [place] [address]Dr. Nahed Yañez Hemoglobin (Bld) [Mass/Vol] 13.5 g/dL Normal 12.0-16.0 [facility] Comment on above: Performed By: #### C BC ####[facility] Rsyitolyne[address] [place], [place] [address]Dr. Nahed Yañez IG # 0.18 10e3/ul Critically high 0.00-0.03 [facility] Comment on above: Performed By: #### C BC ####[facility] Sismrfwukv0985 [place] [id number]. Rosemarieashley Yañez IG % 1.0 % Critically high 0.0-0.5 [facility] Comment on above: Performed By: #### C BC ####[facility] Eraamiwswj6468 [place] [address]Dr. Nahed Yañez LYMPH # 2.5 103/ul Normal 1.2-3.8 [facility] Comment on above: Performed By: #### C BC ####[facility] Cdbpzgfmfm2117 [place] [address]Dr. Nahed Yañez Lymphocytes/100 WBC (Bld) 14.0 % Critically low 20.5-60.0 [facility] Comment on above: Performed By: #### C BC ####[facility] Jscmkdeong3198 [place] [address]Dr. Nahed Yañez MANUAL DIFF REQ NO Normal [facility] Comment on above: Performed By: #### C BC ####[facility] Vwiszrueuh4804 [place] [phone]. Nahed Otilio MCH (RBC) [Entitic mass] 28.5 pg Normal 26.7-34.0 [facility] Comment on above: Performed By: #### C BC ####[facility] Zecncidmzb5120 [place] [phone]. Nahed Yañez MCHC (RBC) [Mass/Vol] 32.6 g/dL Normal 29.9-35.2 [facility] Comment on above: Performed By: #### C BC ####[facility] Ffihoekcou9428 [place] [phone]. Nahed Yañez MCV (RBC) [Entitic vol] 87.3 fL Normal 81.0-99.0 [facility] Comment on above: Performed By: #### C BC ####[facility] Hjvgvpycdk5961 [place] [address]Dr. Nhaed Yañez MONO # 1.2 103/ul Critically high 0.3-0.8 [facility] Comment on above: Performed By: #### C BC ####[facility] Hpczlzbgjo5648 [place] [address]Dr. Nahed Yañez Monocytes/100 WBC (Bld) 6.8 % Normal 1.7-12.0 [facility] Comment on above: Performed By: #### C BC ####[facility] Qiglwfljrz8179 [place] [address]Dr. Nahed Yañez NEUT # 13.8 103/ul Critically high 1.4-6.5 [facility] Comment on above: Performed By: #### C BC ####[facility] Ddayyogwxb3612 [place] [phone]. Nahed Yañez Neutrophils/100 WBC (Bld) 76.5 % Critically high 43.0-75.0 [facility] Comment on above: Performed By: #### C BC ####[facility] Udhjfuqbqp6514 [place] [address]Dr. Nahed Yañez Platelet mean volume (Bld) [Entitic vol] 10.5 fL Normal 9.5-13.5 [facility] Comment on above: Performed By: #### C BC ####[facility] Ttxlfxvann[address] [place], [place] [address]Dr. Nahed Yañez PLT 319 103/ul Normal 150-450 [facility] Comment on above: Performed By: #### C BC ####[facility] Whrsyjzmwd7392 [place] [phone]. Nahed Yañez RBC 4.74 106/ul Normal 4.20-5.40 [facility] Comment on above: Performed By: #### C BC ####[facility] Znabxlkeaq7867 [place] [address]Dr. Nahed Yañez WBC 18.0 103/ul Critically high 4.0-11.0 [facility] Comment on above: Performed By: #### C BC ####[facility] Msvfyaligx[address] [place], [place] [address]Dr. Nahed Yañez CULTURE BLOODon 08-21-2022 Microscopic examination of blood, culture Culture Observations: NO GROWTH AT 5 DAYS. Normal [facility] Comment on above: Performed By: #### B LDCX2 ####[facility] Utmrgwtsnh6414 [place] [address]Dr. Nahed Yañez Microscopic examination of blood, culture Culture Observations: NO GROWTH AT 5 DAYS. Normal [facility] Comment on above: Performed By: #### B LDCX1 ####[facility] Qdytitdjzh0449 [place] [address]Dr. Nahed Yañez Covid-19 PCR (CVDTB)on 08-12 SARS-CoV-2 (COVID-19) RNA MIRNA+probe Ql (Unsp spec) Not detected Normal NOT DETECTED [facility] Comment on above: Result Comment: When [...] for this test is supported by the [place] of Health and Human Service's declaration that [...] be used). Performed By: #### C VDTBH ####[facility] Cozywmfmfl9673 [place] [address]Dr. Nahed Yañez LACTATE/LACTIC ACIDon 2022 Lactate [Moles/Vol] 1.1 mmol/L Normal 0.4-2.0 [facility] Comment on above: Performed By: #### L ACT ####[facility] Dvznbmszhn0306 [place] [phone]. Nahed Yañez Lactate [Moles/Vol] 2.4 mmol/L Critically high 0.4-2.0 [facility] Comment on above: Performed By: #### L ACT ####[facility] Lwiznveive9723 [place] [address]Dr. Nahed Yañez POINT OF CARE GLUCOSEon 08-12 Glucose [Mass/Vol] 453 mg/dL Critically high 74-106 [facility] Comment on above: Performed By: #### P OCGLUC ####[facility] Huagyyzhrq4699 [place] [address]Dr. Rosemarieashley Yañez Glucose [Mass/Vol] 358 mg/dL Critically high 74-106 [facility] Comment on above: Performed By: #### P OCGLUC ####[facility] Nbromychin4657 [place] [address]Dr. Nahed Yañez Glucose [Mass/Vol] 98 mg/dL Normal 74-106 [facility] Comment on above: Performed By: #### P OCGLUC ####[facility] Ahsnccfvtm5877 [place] [address]Dr. Nahed Yañez PROF CHEM 8 (BAS METB)on Anion gap [Moles/Vol] 14.7 mmol/L Normal [facility] Comment on above: Performed By: #### B MP, CMADM ####[facility] Mlpscbanaf[address] [place], [place] [address]Dr. Nahed Yañez Calcium [Mass/Vol] 9.6 mg/dL Normal 8.5-10.1 [facility] Comment on above: Performed By: #### B MP, CMADM ####[facility] Mqbldyffdu0368 [place] [address]Dr. Nahed Yañez Chloride [Moles/Vol] 95 mmol/L Critically low 98-107 [facility] Comment on above: Performed By: #### B MP, CMADM ####[facility] [address]iusoaokdr[address] [place], [place] [address]Dr. Nahed Yañez CO2 [Moles/Vol] 25.2 mmol/L Normal 21.0-32.0 [facility] Comment on above: Performed By: #### B MP, CMADM ####[facility] Vlclwboita6955 [place] [address]Dr. Nahed Yañez Creatinine [Mass/Vol] 1.15 mg/dL Critically high 0.55-1.02 [facility] Comment on above: Performed By: #### ERICK Ordonez MP ####[facility] Tqblpstpxp36[address] [place] [address]Dr. Nahed Yañez EGFR-AF MOSOTHO 58 mL/min/1.73m2 Critically low >=60 [facility] Comment on above: Performed By: #### ERICK Ordonez MP ####[facility] [address] [place] [address]Dr. Nahed Yañez EGFR-NON AF MOSOTHO 48 mL/min/1.73m2 Critically low >=60 [facility] Comment on above: Performed By: #### ERICK Ordonez MP ####[facility] [address] [place] [address]Dr. Nahed Yañez Glucose [Mass/Vol] 191 mg/dL Critically high 74-106 [facility] Comment on above: Performed By: #### ERICK Ordonez MP ####[facility] [address] [place] [address]Dr. Nahed Yañez Potassium [Moles/Vol] 3.9 mmol/L Normal 3.5-5.1 [facility] Comment on above: Performed By: #### ERICK Ordonez MP ####[facility] [address] [place] [address]Dr. Nahed Yañez Sodium [Moles/Vol] 131 mmol/L Critically low 136-145 [facility] Comment on above: Performed By: #### ERICK Ordonez MP ####[facility] [address] [place] [address]Dr. Nahed Yañez Urea nitrogen [Mass/Vol] 15.0 mg/dL Normal 7.0-18.0 [facility] Comment on above: Performed By: #### ERICK Ordonez MP ####[facility] [address] [place] [address]Dr. Nahed Yañez Urea nitrogen/Creatinine [Mass ratio] 13.0 mg/mg Normal [facility] Comment on above: Performed By: #### ERICK Ordonez MP ####[facility] [address] [place], [place] [address]AwShaun Yañez XR CHEST 2 Von 08-21-2022 XR CHEST 2 V Normal [facility] Coding Summary.on 08-11-2022 Coding Summary. CD:[id number] W w+PGhlYWQ+QN8XQKJyK34 emIDyqL1gN9DSRXdKJfyx OUMEABbWNzKxuxImIK4pz XNjZXJu IC8+NS9vFNArVcurtYRsf 6J8lUX1N37lds6yQNhirV A3TGMfOgYblwcrv7debPa 6IDcuNmluOyBt UXOexM70GNT1dO76Qg65w GXomXRqw3slrQs4TmXdFD JgJNG5cDtkJFimw2BfKAU cX75tvTWqi5V6 PCZdmAuvoFSjYpDdlLK6p U1iITlgldwba9lwdsauSp d1vk25tHAfy3P7sJX8D5F jxgG5ZREncJRh IrpioIQTrF8ipowxy5nrc afoFzMoIXVfSRr8MJi8FO JsiAbbGzZlHZ59BTV6JJC eubNcE7OeNVGv vAziTtJ9r6I5Ia2DJ0ZWA rhrL3EXTMQHGCmwfVU+PC 75ib99H6ZqOcamAwo5BQT cDNK5jAZ9xN9z AZDhQYusy8C9mEO4O6Hyr vEutz0de2aaGTJvNBsgM0 3daMTdw7U7BHNiuBX0DOE yuOtmZhPxdO26 Oyc+SWUizWoqq7SeWivqj 2tef4rgeMg1OwlnTVZvyh OfeLdxKMQ2v4DgIz5mPYA xcDF1pPG1bE4s XsTfJmP8QPbvE854KnXhb ISgQmifT87aL6EtnWN+PH IxKiq1OYMnqOvuWA3iQ7G hZGRpbmctbGVm gXsbDO5eFAIeteghISYhn X0qMSJzA5e7KdOcVgM5WE ntF9KbPAWzxboxEl52zI4 hCuXsZnP2ENco Q7UudpL4XHVvgZVjXLskK CG4G46ys4K0CXElAUIdZC K9hHZ9sS0aqPnmhpxbwDH mdDsgdmVydGlj BDjtDChcG295XLMyfVugV kNvZGluZyBEYXRlOiAgMD MvMzEvMjAyMzwvdGQ+PHR yECT0aGunBUBy oTIsLTloCk3fbKwtrZmsO Y8wEUQlvufnZYQbcG5aTK RgsCDjfJsfKE1fWJVoqyy it499EvKbLCP5 UQDoeKXjG3VbpT6mRqVqU ZGzECQbI9QrjZTbCItrD1 61XWiaSiO9SQYazbOtU7F sLWFsaWduOiB0 s8E5Uy8Vq4JqwcxwF5Kje TZfKhCnUaeuMXr7H4TvFp wvdHI+HL30VEBjPR57LBr 4DZI0kCexZYhj VRClY2AfaV3zScVnVZGzR GRkOyc+PHRhYmxlIHdpZH RoPScxMDAlJyBzdHlsZT0 lXg3xEXDhLIIu iVmwsQCzUsTvu0xeKSYjO EupLA2dnMywT3AolTZ1DF Xjk4e3Kr06H29mI3TuhBU +AMXufXA2cGO4 uI7pWpNyAjO0PWytX695I qSjuKYiRhikd9gcv1ozmF a5YyK9JIJzerNouDuqOGG 6e6MzKh11M72f IHdpZHRoPSIxNSUiIHZhb Kxtpg4nyZ5oVv7+PGNvbC O5rDI9lO3dXvJuBvB1IHh fG093CwHaqXCr Ewkcl9mbs4tinJz9RgJuC ODyvkFudGjyIKW1a9DkCl 91Y0LsaMmuq2NaXwg2el7 3kFKrj1Q6zYP8 F2RjPHKbjdfvvYOvhXwmU Z2sBVMrgvlkPCAqyG7tPV SvR7e8VxUbBcJ6HFijK8D yfaZ8YEKwjPCs XVOinEBRgI8gzkknu8jho mfyGyNePXJyLOc9JTv6ZG TriPhzCaLqCPU1RiO0YAP 0mJHkxF8xdSws ypipfY5bPej+XZJ4iYIqw SKGUG5wHqucaWK+PHRkIH C5yYklXFjvVPAfgO9mDVJ bT8i6OeUnNxL1 YNtsF3MqkjA4KDEikWRlT NAygYJLqX3lwkppx9ahif orAhVbFDMeHVl2NYg6ICI saWduOiBsZWZ0 OhX7UPB8iHDrfU8ckPvxr zzwdM5gGkg+QmlydGggRG F4ORe8O2KhCbf0BXKjvAg pSX5vtIOjBDvl Vk6zsEhxiNxdZD4xPXRqw rozl953GqAlx0raAIYarL XfQGagJNC6E42wp6M4KBF cGNTwDNH6qOS7 rU9knPwnvtvgqQUcwNeff uHuvYvgYRhmSFmnP496SL HmgLnrVtRoKYg8D0ZpJpu 5YJFueXntGJ4h sJXoPNfcXz1btNihtPafD S3mLFQwoyaap034FsJim1 xuFGLdqEBkZUfzUSM8L56 hy0P5OPRvINNj ZJT3uBX5tQ2tqPldriuhg GVmdDsgdmVydGljYWwtYW ukN450GUOjuMrjXkWizFw 9Q7NhOxc8ZTYy hEkxUE3aoIPbUItlVn7ex GhcoFdsXZ0cEREoyzthr1 29OiSog1tkZFGcwZCqVBh lOIE0A73pr5W2 AWHvTSKkFVT8uLI8hT8gd GlnbjogbGVmdDsgdmVydG gwRZueFOlhA881RFJnmTz nPlBhdGllbnQg UZgmBGv2G7IqSaijjWV+P N51QGYoKD23kOPdtVTdl1 sueCi6IrDiPCOhGCN4oSo rLAtjz6JbHHBp W50fwPXpx9T2JFKljJxgx DIaTiOqfBY7gG0fQIjrpi tzi7lxccwbTczwr5oxsi0 1zL02K38fDEfu ZHRoPSIzMCUiIHZhbGlnb o5efU3vYr0+CMRzoXS7iS Z3hH0bAMBlBdJ4MGwxI78 9InRvcCIvPjxj j7xas3lkuYc0TmH5IQYql lQefWszEUR8w5XzLu17L3 9sIHdpZHRoPSIyMCUiIHZ lbGbvga0rrY7f Ii8+WIDnnDQ3sWU3tN4qO xOtIyK4GXpjR810RhHshZ NrBmgyI89vH5NazYI+PHR eDzm1QNEuaXfj ZW2jfQBaERnlFi0yQVJ8M bLiJeNqHOggX9CfQRJjpx znmqclcTH0ZMAzVZJkfK7 7Xr5jxRqzRPJk fGIFsV9bramrf4hzjwppM cWlLXWbZWr6AMz2YUTffS pyGgKcJYH6VsT2GTV3fBT mkK5ifBxkrfoc iB0zU0JtODQwztgaFp04z G4gEkNwUzL3FZgxNxy+TU CNJD8HHOVJVZEZGTL6K2D lTsb5VVGklXfi BZ9vcZMiWItuEz1ciZhth AmyVG8fSLYcxmvxAPFhnO 1sMBWneNQxiKfuMN3oOJG gzmfwd076LlXu TSK6PFWpdXAyX2EnrY4mQ kXcUSYcFMEjJ5NybQDaBC ygB547ZUmbQcG4XLVlvyK mW4KrPSJyuQvl BxA7s7R5Ou6ePM3jLS3gB BQqRK69XD18pKZgh3G6bE Q4T0VeZZDqibgwqqcvgXB 4SKJaOEZibF63 fCFiOTgeAq1rb5Q8j069G KJfFWElhU55Sx8srSgyHD DnySOSkB3uhouap0wjtxp gIzAwMDAwMDt0 LYf1RGJtvZllDfHqSQM1G oT5XBE8sPYqhC8mhLeibm ocgJ0eWim+NjEgWWVhcnM 8V8NnGbq6QFNd qOueCB4ztRXuOZwjIh9fz YmuhBpwHL6iRRWaltpiIJ AeaB9pVLSsgSQyvMdzEY2 tMXSavywgw177 XuHrOXU0BDWjcNFgK8Zea J8yBhJgNLTnIQRrY6FcgF IbIHakN832TCmkSkL9NTN atkXcL9PaWDPz kKwuZiA6u5D4Wv4WEO4ed GX0E2DzNta6MLTglYeoPR 7gxRJgBCvbMt4wxRinzXd iSC6jRSVdvjep BOSgsH8eOIFmkORywDbbM V7eECMgnpjli505SuOlPR H3RJZhgWZvT2PbwU5eRfB rZGPbILVrA9Dg lCGfOPywY049RXunYcR5P WAoucOmB4ReIUBbdPptTe L8v2R9Ke0YpBWeX0GtU9y 5Y3AhYgykjML+ MT55VKCrTL52wCJhnADjo 0mteUm6QgEsHJErMME5wB ieABrcl1XlVNPmM51kaTK al6N7WPVadMck mCOsUdSakJP7mR9rFMgdh jldy5rsabsnFbadz7ygmk 14aG84M02hUYumKLYoIVZ zMCUiIHZhbGln mm8fwR4yOr8+KSVvwFY0x IH3hK1bKzAnKwR0OPcyW9 42WeQadRFoKdzec3oxt6w zbCa8QkBuXSVf mdRzyZdnVUM1z0TpVl10Y 29sIHdpZHRoPSIyMCUiIH JixVopyy4wbK4bSj1+PC9 jx2vmbl50uL44 dHI+QRJiKAV0fVwyCMelX MHaaY0tOMysLpE1OKMjRe MorA18hHDkUFxpMr5jqDu nzXznLJ4qOTHj kbznw644XiGht5tzMZFkr LQyKVeeKGK5T86jq8M0EA UbKWBtYSW9eGQ0gY7tiGf nbjogbGVmdDsg fcErbScbAVbzIPyoC004O YIliDhaZtYruBFiM6qukt RQYV5yApusrQH+PHRkIHN 0eWxlPSdwYWRk qE9aPBCoD0x7GaRqVsP5A PkjK2DwkbI7XEJfuVPsKR JwtAMXzM5idcpsl0wdofy gIzAwMDAwMDt0 NMc9IMDulTxoBmKaJHM6U yS8IQX6zLTfdD3xsTbirx emkS6pBmy+RklOOjwvdGQ +ZODuZCB1cJqn DQsbESKckE6fASExE7m7D aPeYeT7FXueL2FbyvH7AZ NqyFJnIJZulPHLbC3anow xb2koyruuJaIw DVVcJAl0SDa5EWNbqZhqB kWaWZU3OaO5CYT8yTDjrP 0fjFszvrhpsB4qSex+TVJ OOjwvdGQ+PHRk TMM7dEafOBvjSGYibA2gX HXeI3z8VdArOsR3SBysF6 IvfjH8GBElyQMdPQSdkUC DqR5pmtsho7py mgbfSmBgZLGkUTk6CCk6V BFswNrjTeFlPRO4KmS9LC Z2lPKvwX5yjCegjdggwN6 wOyc+KET5JVJ4 FO53ZY88T9FlXdnchAGzj +PHRhYmxlIHdpZHRoPS skMBPfGdRmhWczIZ6gRv0 yZGVyLWNvbGxh cHNlOiBj (more content not included)... Normal [facility] Auto Diffon 08-09-2022 Basophils/100 WBC (Bld) 0.5 % Normal 0.0-2.0 [facility] Comment on above: Order Comment: Order Added by Discern Expert. Performed By: #### 2 444908, 2699757, 04666347, 5059960, 84194860, 76929236, 89149740 ####[facility] [address] [place] [address] Basophils/Leukocytes Auto (Bld) [Pure # fraction] 0.1 E9/L Normal 0.0-0.2 [facility] Comment on above: Order Comment: Order Added by Discern Expert. Performed By: #### 2 208793, 4564886, 69614187, 8337933, 68682554, 23393507, 90135357 ####[facility] [address] [place] [address] Eosinophils/100 WBC (Bld) 2.7 % Normal 0.0-8.0 [facility] Comment on above: Order Comment: Order Added by Discern Expert. Performed By: #### 2 386095, 1108755, 24149373, 3269906, 74403987, 85741854, 23795202 ####[facility] [address] [place] [address] Eosinophils/Leukocytes Auto (Bld) [Pure # fraction] 0.4 E9/L Normal 0.0-0.5 [facility] Comment on above: Order Comment: Order Added by Discern Expert. Performed By: #### 2 492782, 7239780, 42532723, 0965238, 77311200, 62970923, 12274741 ####[facility] [address] [place] [address] Lymphocytes/100 WBC (Bld) 12.8 % Low 14.0-50.0 [facility] Comment on above: Order Comment: Order Added by Discern Expert. Performed By: #### 2 592939, 8880383, 01576419, 9978523, 25994682, 86234998, 76714455 ####[facility] [address] [place] [address] Lymphocytes/Leukocytes Auto (Bld) [Pure # fraction] 2.1 E9/L Normal 1.0-4.0 [facility] Comment on above: Order Comment: Order Added by Refugio Expert. Performed By: #### 2 553097, 0628732, 85526050, 0283610, 47273118, 79355437, 37020583 ####[facility] [address] [place] [address] Monocytes/100 WBC (Bld) 6.4 % Normal 4.0-14.0 [facility] Comment on above: Order Comment: Order Added by Refugio Expert. Performed By: #### 2 366986, 7289382, 67674520, 5108445, 16891059, 79745202, 07380287 ####[facility] [address] [place] [address] Monocytes/Leukocytes Auto (Bld) [Pure # fraction] 1.0 E9/L Normal 0.2-1.0 [facility] Comment on above: Order Comment: Order Added by Refugio Expert. Performed By: #### 2 665789, 3450225, 36971493, 9805619, 81899888, 02052385, 93882392 ####[place] [address] [place] [address] Neutrophils/100 WBC (Bld) 77.6 % High 36.0-75.0 [facility] Comment on above: Order Comment: Order Added by Discern Expert. Performed By: #### 2 988715, 8276546, 02092818, 9816119, 40579459, 26513516, 25176294 ####[facility] [address] [place] [address] Neutrophils/Leukocytes Auto (Bld) [Pure # fraction] 12.6 E9/L High 2.0-7.5 [facility] Comment on above: Order Comment: Order Added by Discern Expert. Performed By: #### 2 540590, 8189505, 48267084, 7391001, 39778355, 35307227, 53442344 ####[facility] [address] [place] [address] BMPon 08-09-2022 Creatinine [Mass/Vol] 1.1 mg/dL Normal 0.5-1.3 [facility] Comment on above: Performed By: #### 2 766386, 4973611, 21002461, 2842138, 06066269, 37632603, 56206631 ####[facility] [address] [place] [address] Urea nitrogen [Mass/Vol] 18 mg/dL Normal 5-21 [facility] Comment on above: Performed By: #### 2 789079, 5012333, 50006341, 0688981, 44578873, 96798919, 29755159 ####[facility] [address] [place] [address] Urea nitrogen/Creatinine [Mass ratio] 16 No Units Normal 10-20 [facility] Comment on above: Performed By: #### 2 228939, 6691292, 77753028, 4429869, 80184684, 86774278, 29377178 ####[facility] [address] [place] [address] Anion gap [Moles/Vol] 13 mmol/L Normal 6-16 [facility] Comment on above: Performed By: #### 2 262582, 7142862, 66526429, 8076418, 19496954, 12251924, 88072177 ####[facility] [address] [place] [address] Calcium [Mass/Vol] 8.8 mg/dL Low 8.9-11.1 [facility] Comment on above: Performed By: #### 2 795340, 5695194, 86674620, 3345967, 98973617, 45998391, 16331932 ####[facility] [address] [place] [address] Chloride [Moles/Vol] 101 mmol/L Normal 101-111 [facility] Comment on above: Performed By: #### 2 549360, 7207585, 36726389, 1664721, 80608776, 72328939, 97268461 ####[facility] [address] [place] [address] CO2 [Moles/Vol] 27 mmol/L Normal 21-31 [facility] Comment on above: Performed By: #### 2 714684, 9183830, 69929151, 1440790, 11789539, 80725691, 97901342 ####[facility] [address] [place] [address] Glucose [Mass/Vol] 121 mg/dL Normal 55-199 [facility] Comment on above: Result Comment: If t his glucose result represents a fasting glucose, interpretation should refer to the following reference range: 55-99 mg/dL Performed By: #### 2 440392, 0386960, 98037823, 2881443, 99588095, 88208419, 14376161 ####[facility] [address] [place] [address] Potassium [Moles/Vol] 3.9 mmol/L Normal 3.5-5.3 [facility] Comment on above: Performed By: #### 2 359760, 0620365, 62911107, 7141656, 04662397, 58274379, 84303106 ####[facility] [address] [place] [address] Sodium [Moles/Vol] 137 mmol/L Normal 135-145 [facility] Comment on above: Performed By: #### 2 410460, 3960059, 06511843, 0653691, 08952542, 55630234, 21012728 ####[facility] [address] [place] [address] BNPon 08-09-2022 Int Ctr BNP Pass Normal [facility] Comment on above: Performed By: #### 2 456811, 2061172, 14640666, 9529244, 89300209, 32234002, 77066134 ####[facility] [address] [place] [address] Natriuretic peptide B (Bld) [Mass/Vol] 19 pg/mL Normal 5-80 [facility] Comment on above: Performed By: #### 2 953350, 1597696, 42819534, 1097968, 16569175, 79637577, 41955627 ####[facility] [address] [place] [address] Blood Gas Art, with Lytes, G alex, [place] 08-09-2022 a/A Ratio Art 75.90 % Normal >=0.80 [facility] Comment on above: Performed By: #### 4 76538998 ####[facility] [address] [place] [address] AaDO2 Art 21.9 mmHg High 5.0-15.0 [facility] Comment on above: Performed By: #### 4 75639407 ####[facility] [address] [place] [address] Allens Test Not Applicable Normal [facility] Comment on above: Performed By: #### 4 [id number] ####[facility] [address] [place] [address] Base Excess Arterial 3.1 mmol/L Normal >=2.8 [facility] Comment on above: Performed By: #### 4 [id number] ####[facility] [address] [place] [address] cCa2+ Art 4.86 mg/dL Normal 4.40-5.30 [facility] Comment on above: Performed By: #### 4 20246124 ####[facility] [address] [place] [address] cCl- Art 105.0 mmol/L Normal 101.0-111.0 [facility] Comment on above: Performed By: #### 4 74258910 ####[facility] [address] [place] [address] cGlu Art 117 mg/dL High 55-99 [facility] Comment on above: Performed By: #### 4 09238792 ####[address] [place] [address] cK+ Art 4.0 mmol/L Normal 3.5-5.3 [facility] Comment on above: Performed By: #### 4 62932355 ####[address] [place] [address] cLac Art 1.4 mmol/L Normal .5-2.2 [facility] Comment on above: Performed By: #### 4 80585148 ####[facility] [address] [place] [address] eyewear manufacturing supervisor+ Art 142.0 mmol/L Normal 135.0-145.0 [facility] Comment on above: Performed By: #### 4 [id number] ####[facility] [address] [place] [address] Drawn by [employer]LG Invalid Interpretation Code [facility] Comment on above: Performed By: #### 4 [id number] ####[address] [place] [address] FCOHb Art 1.0 % Low 1.5-4.9 [facility] Comment on above: Result Comment: Refe rence range Nonsmoker <1.5% Smoker <5.0% Heavy Smoker <9.0% Performed By: #### 4 22341229 ####[facility] [address] [place] [address] FIO2 BG 21 Invalid Interpretation Code [facility] Comment on above: Performed By: #### 4 [id number] ####[address] [place] [address] FMetHb Art 0.5 % Normal 0.0-1.9 [facility] Comment on above: Performed By: #### 4 47948283 ####[address] [place] [address] FO2Hb Art 92.6 % Normal 92.0-100.0 [facility] Comment on above: Performed By: #### 4 [id number] ####[address] [address] HCO3 (Bld) [Moles/Vol] 27.1 mmol/L High 22.0-26.0 [facility] Comment on above: Performed By: #### 4 31441475 ####[address] [address] Hemoglobin (Bld) [Mass/Vol] 12.5 g/dL Normal 12.0-16.0 [facility] Comment on above: Performed By: #### 4 [id number] ####[address] [address] Oxygen saturation in Blood 94.1 % Low 95.0-100.0 [facility] Comment on above: Performed By: #### 4 22431075 ####[address] [place] [address] P CO2 Arterial 48.9 mmHg High 35.0-45.0 [facility] Comment on above: Performed By: #### 4 24960130 ####[address] [place] [address] P O2 Arterial 68.8 mmHg Low 80.0-100.0 [facility] Comment on above: Performed By: #### 4 [id number] ####[address] [place] [address] pH Arterial 7.383 Normal 7.350-7.450 [facility] Comment on above: Performed By: #### 4 [id number] ####[place] [id number] Sample Site R Brachial Normal [facility] Comment on above: Performed By: #### 4 85231952 ####[id number] Sample Type Arterial Draw Normal [facility] Comment on above: Performed By: #### 4 89669715 ####[place] [id number] CBC w/ Auto Diffon 3 Erythrocyte distribution width (RBC) [Ratio] 15.4 % High 10.9-14.2 [facility] Comment on above: Performed By: #### 2 004147, 1553520, 62165850, 9412080, 85896463, 28966059, 67551943 ####[facility] [address] [place], [place] [address] Hematocrit (Bld) [Volume fraction] 36.9 % Normal 34.0-46.0 [facility] Comment on above: Performed By: #### 2 526717, 2932726, 56546200, 8363657, 70205002, 38544116, 41101020 ####[address] [address] Hemoglobin (Bld) [Mass/Vol] 11.8 g/dL Low 12.0-16.0 [facility] Comment on above: Performed By: #### 2 744482, 3462704, 96522195, 6178812, 34814578, 35029483, 15379313 ####[facility] [address] [place] [address] MCH (RBC) [Entitic mass] 28.0 pg Normal 27.0-34.0 [facility] Comment on above: Performed By: #### 2 932011, 5381566, 57928856, 6919103, 70980582, 96037703, 00406089 ####[facility] [address] [place] [address] MCHC (RBC) [Mass/Vol] 32.0 g/dL Normal 31.4-36.0 [facility] Comment on above: Performed By: #### 2 052993, 9640769, 82626444, 4992858, 88491633, 67446713, 40728248 ####[facility] [address] [place] [address] MCV (RBC) [Entitic vol] 87.6 fL Normal 80.0-100.0 [facility] Comment on above: Performed By: #### 2 607844, 5701309, 16814901, 9612278, 29893050, 11298461, 01024703 ####[address] [address] Platelet mean volume (Bld) [Entitic vol] 8.4 fL Normal 6.4-10.8 [facility] Comment on above: Performed By: #### 2 840136, 7413462, 35188011, 0413972, 06823314, 13353463, 77415354 ####[address] [address] Platelets (Bld) [#/Vol] 238.0 E9/L Normal 150.0-500.0 [facility] Comment on above: Performed By: #### 2 637782, 3024994, 72194414, 6348935, 08771544, [id number], [id number] ####[address] [address] RBC (Bld) [#/Vol] 4.2 E12/L Low 4.3-5.9 [facility] Comment on above: Performed By: #### 2 [id number], [id number], [id number], [id number], [id number], [id number], [id number] ####[address] [place] [address] WBC corrected for nucl RBC Auto (Bld) [#/Vol] 16.3 E9/L High 4.0-11.0 [facility] Comment on above: Result Comment: Franny chaudhry reviewed by LW. Performed By: #### 2 [id number], [id number], [id number], [id number], [id number], [id number], [id number] ####[facility] [id number] [place] [address] CHEMISTRYOrdered By: SYSTEM SYSTEM on 08-09-2022 Troponin [...] 50 mL/min/1.73 m2 Low >=59mL/min/1 .73 m2 [facility] Chem S Glucose [Mass/Vol] 121 mg/dL Normal 55 - 199 mg/dL [facility] Remisol Potassium [Moles/Vol] 3.9 mmol/L Normal 3.5 - 5.3 mmol/L [facility] Remisol Sodium [Moles/Vol] 137 mmol/L Normal 135 - 145 mmol/L [facility] Remisol Troponin I.cardiac [Mass/Vol] 4.00 pg/mL Low 10.10 - 27.10 pg/mL [facility] Remisol Urea nitrogen [Mass/Vol] 18 mg/dL Normal 5 - 21 mg/dL [facility] Remisol Urea nitrogen/Creatinine [Mass ratio] 16 mg/mg Normal 10 - 20 [facility] Remisol CHEMISTRYOrdered By: Evelyn Mercado tter on 08-09-2022 Natriuretic peptide B (Bld) [Mass/Vol] 19 pg/mL Normal 5 - 80 pg/mL [facility] HemeManSS COAGULATIONOrdered By: Sagar Castorena on 08-09-2022 aPTT Coag (PPP) [Time] 31.4 s Normal 25.1 - 36.5 second(s) [facility] Auto Coag INR Coag (PPP) [Relative time] 0.9 {INR} Invalid Interpretation Code [facility] Auto Coag PT Coag (PPP) [Time] 10.3 s Normal 9.4 - 1 2.5 second(s) [facility] Auto Coag CTA Cheston 08-09-2022 CTA Chest [...] amount in ml's: 73 Normal [facility] Discharge Instructionson Discharge Instructions [id number] 1.00CD:127 Normal [facility] ED Clinical Summaryon 2022 ED Clinical Summary [place] [id number] ED Clinical Summary Person Information Name: VIVIAN VANN Vika/[facility] Age: 62 Years : 1960 Sex: Female Language: Macanese PCP: Екатерина Robert MD Marital Status: Visit [...] 08/09/2022 18:01:49 08/09/2022 18:01:49 08/09/2022 18:01:49 ADDRESS: [address] [id number] PHYS DOC NOTES: MEDICAL INFORMATION: Prescriptions Given: [facility], [address], [place] [id number], [phone] brompheniramine/dextr omethorphan/PSE (Bromfed DM oral syrup) 5 [...] Follow up: With: Address: When: Екатерина Robert [address] [place] [address], [facility] [place] [id number] [facility] (1) In 3 days 08/12/2022 Comments: Call the office of your primary care doctor to arrange for follow-up within the above-stated timeframe. Follow-up with your primary care doctor about this ED visit. You should review your labs, imaging, and diagnoses from this ED visit with your primary care physician. If y (more content not included)... Normal [facility] ED Note-Physicianon 08-10-19 ED Note-Physician Basic [...] that she has had 2 admissions to [facility] over the last few weeks for pneumonia/COPD exacerbation. Patient is currently on amoxicillin at home, feels that her symptoms are not improving but are in fact worsening. Patient endorses fevers and chills, myalgias. Patient reports her symptoms had not improved much on her last discharge from [place], and worsening since that time. Patient is [...] and Complexity of Problems Differential Diagnosis: [] [facility] Data External documents reviewed: [] My [...] for co (more content not included)... Normal [facility] Comment on above: Result Comment: Elec [...] these instructions at home: Medicines ? Take [id number] and prescription medicines (inhaled or pills) only [...] (more content not included)... Normal [facility] ED Patient Summaryon 023 ED Patient Summary [address] [address] Patient Discharge Instructions Person Information Name: VIVIAN VANN Age: 62 Years Arrival Date: 08/09/2022 13:09:07 Discharge Diagnosis: COPD exacerbation Primary Care Physician: Екатерина Robert MD Provider Information Primary Provider: Arsenio Martin DO Advanced Clinical Faculty:Clinton Lucero PA-C The exam and treatment you received in the Emergency Department were for an urgent problem and are not intended as complete care. It is important that you follow up with a doctor, nurse practitioner, or physician?s funeral home assistant for ongoing care. If your symptoms [...] Follow-up Instructions: With: Address: When: Екатерина Robert [address] [place] [address], [place] [place] [address] Business (1) In 3 days [...] opioids can be used to help relieve torvtglg-qd-pfydgs pain and are often prescribed following a [...] (more content not included)... Normal [facility] EMS Documentationon 08-10-19 EMS Documentation Please click on link to see report [id number] CiX5+prnDQolQUJDcGRmI TBoRxO3SWggFaEgOH3ykx 2EXFfJJ7WxFITeKIj4Au4 I UHszEQw4UOXcXT3WU0stJ Om9WpC7Lg6YsB9lFLFjcp WiBBMMZ02aQavwWvZeWDd iTEEaJfk0GoKI Be2lTBEvACVwHJMmVHTuQ CAgICAgICAgICAgICAgIC AgICAgICAgICAgICAgICA gICAgICAgICAg ICAgICAgICAgICAgICAgI CAgICAgDQplbmRvYmoNCg 9DjYDtNf9AEmMhOzKRXcD wMDAwMDAwMzIg AATzTXKabj6ULYKjYSRyH ZH6JWSjMFBqJBTiNDvfEL RqUOLyRHb9LJVqXONfVJ8 NCjAwMDAwMDE3 HZReSQCySODuvl4RDKXvA DAwMTkzNCAwMDAwMCBuDQ fuWLPqUGMtWUl4SPElOPJ sEK2MGlSlRGCz DFRcPhGxUFDeXITzho3BM DAwMDAwMjMxNSAwMDAwMC DeXUmlAULoNRLyLak2RUS fSYSePQ1RKfYf WBUvXMM4CDxsOCCcEFEsx g3MEBQgYTXmSnztNZSkFG AwMCBuDQowMDAwMDAzMDY pDJFkGZRgIR9Z FjIaHLMeXRR6EBJdYNDrP PMeil9AIHNrQGMbLgAdAt AwMDAwMCBuDQowMDAwMDA rXPZ4QBQuHUTl WJ9RUcXpSHDnVDPoIPPlL UDyGXQllq4EFESiQJAcHV X5HiLmADQjVPBlMJtlHBW wIHW6RnV4JYBn FLVpML2TGnPpXFZaOTC0Y ZGvCUAuEUVgnb7QJZRxGQ VhGVY6ZFReDOSkMVCkVPv sPHTmHYG6UXU9 MSEpNWSzVC9LRvXsRFNmF DJ9ZQkeOSNnAJLezb3JNL AwMDAwOTMwMCAwMDAwMCB uDQowMDAwMDQ5 HFttWHItXNAnUZ3PPvDaP RFoNRH6HMBhSUVyGXQwpt 6JdJNlgHvnsh9HSEnRQ3x QKCw0MCNDGMW9 JyB3I1G4RsE1AIvBEYpoU CF7ARPXBiI9ULI+CjxGRj OfH3FNZZCXQVCmAdsfGGX ARNK7MYvxMQv1 SALdQK2nOa4DyqA6UPL6M CotTZidLt9csPVqQgXaCP HFY6DgryHrVZpJQ1SniES cCJEyE2DIWDM7 Sx75PpyfpWsJFRW1RTLYY VkvKO4QMvfCNoPoGOxbNu 14J5BSa1L5UkWwH4AInQs DmzCKKMgbF5kH hEY1v6cboAuYfGGWgImmR GdJcndPalFSQUlqUHNXaE 87cnfGF2InELc7E4RAXg5 VULazChNryJ0P qFvzMML5fF9gVNNSJCvBV zwxZK3LHUAECZp2AGb+Pi AgICAgICAgICAgICAgICA gICAgICAgICAg ICAgICAgICAgICAgICAgI CAgICAgICAgICAgICAgIC AgICAgICAgICAgICAgICA gICAgICAgICAg ICAgICAgICAgICAgICAgI CAgICAgICAgICAgICAgIC AgICAgICAgICAgICAgICA gICAgICAgICAg ICAgICAgICAgICAgICAgI CAgICAgICAgICAgICAgIC AgICAgICAgICAgICAgICA gICAgICAgICAg ICAgICAgICAgICAgICAgI CAgICAgICAgICAgICAgIC AgICAgICAgICAgICAgICA gICAgICAgICAg ICAgICAgICAgICAgICAgI CAgICAgICAgICAgICAgIC AgICAgICAgICAgICAgICA gICAgICAgICAg ICAgICAgICAgICAgICAgI CAgICAgICAgICAgICAgIC AgICAgICAgICAgICAgICA gICAgICAgICAg ICAgICAgICAgICAgICAgI CAgICAgICAgICAgICAgIC AgICAgICAgICAgICAgICA gICAgICAgICAg OL9Os1JrfrM5mwMxHXygZ BwcCBGAHh4BXBulCjUlHG 1gnj9KWRvNI35hhUXbREW hIDIxIDAgUgov K9XtcdHruYxocjHyMlWqN TGUIm4UnZZQHUrdF5S1lA kuYNVgDNizCGFJTo5FMFz gXH9eAGBzDEMm Qz3jRXjkUJQmBLCyRlScX TZXSt5AmXJmHU7SVQIuqS 9nCj4+DQplbmRvYmoNCg0 KMjQgMCBvYmoN Mps3Wy8EuHx3DDLfJ2QxF FVdJHFmj0FgCv9TGM2sjY beKDP7Eu0WYZe6In3+DQp rlWXbME5ICyhs F4RjJNIoKYFkKLFtANrWw XCgAIUpQLYQVIyLgXHaDQ jzpTYDMsAQZzMCEmJQzMC eZxG4UXiEL6L4 HHcFLvMpf3R1YJoMLIVHA oFbZMjQeJiT3yPNfPqDin P71DG0sOiEGENeOQXT4LV ruDyG7HdQIa8Y 3R6IIY4ul7IlBHAoQTywf kZiJomUDw8APaFzXZSsIf dLDdu0Sf0Yk176AL82umS bNDIgMCBSXQov LWEqcCMVr4lsSsNwUXE1F OYwCpqjUZboIPIgWL05BQ YdIRCuVyzhHvDtw5HpA6H vQPp2Ns5EZ3Pv ZXP2LLj1Af9SMLHuNzOeD gDgFNFHGe2WDt3MV5H2mK PdZ8UtY5RSYp8DOyQsHS0 alw4ZTLtxGfCo OT1tnj7TSXiKA4GWq8qtR hZeQUE9DZRbMhnqQNxeKk uqcPGpDH3XiDK5ZREvU59 fQFukUIKjH4Iv AKa7Sg2LPJHgoFDsOTUyA WmRT5bGGrvvY7HsJOeSP3 fbTfJ8NKElOETyZdi+Pgo +AdrkW0LjcFjc UKLpXv0xvTayAPgkUTUbV Q6iupRnvJy+Yq6Nb8UyCI TbJMq3aPEU9YRj9YQfVMA iLAK0NSBfgwYY UDaj6SgZpWBcAjMcpYWaY 8gxJCSl12pFPXVeNhfIb3 gdBzEx6WnEKL+WO2CBdhD wNjPbhi8RSAqy juIreHHjUN3UAtVnJL7kf t5MMXxuZyWqCU2kxd3NZQ gFB3MENL8Fz1AvDSyWC0K ONVBXG1kIHVMS I4kTNEYYP3tIYGVJW31FV YHHS3CAZDBljOVIU8KsLZ EGBl6JWcBgCM9xls1NVHl pLDRpCO9awr5U YRdCV8UDCL1Ci9CwLZyOK 2PjUBETXb0HLsRwEV7zka 1PTCxcVZNpMA6btr0VVLg FB9LHVU3Ec1Ky PViNN9LKSHCEF7zCLOYGA 6lYUDKPL1lVOJDGB81GBG NUQ1OXHWEocLRUN9GxQDQ KIq6FMbKtFJ4l fr8FQZjmYKPgAZ4pot1WM IqLF9Pmi6GUm282EI6LFe iARK8vI121xupqwr3xr2S TLUJvbGRNVAov HPShM3KlQMHyyCAqejImN ZwgYGXpLZPxGw0JtgEsWF luZyAvSWRlbnRpdHktSAo xA4WxdZxiLQUs MGmgZFGVG3LuBS8jW86dE IWvFzOxYBGLB4G2sTOiD2 NaatJTDq6ZFtUhHO2omv4 MLLxqWESkBC5s hq8OLNlXE9Gsj0MNu917A Q9XEkbDHO5mW190qivszy 3ym3RRWOGhnNYZDUseD2k LE3xjiAHiQZ2m xjC7MQmnV3IlJQVjzxgfC IisVM99eJF9BEzpJoZzbA Z5qrnsGSWrf8VpZFxeR3F wcGxlbWVudCAw Cj4+Vs5LIUIZx9kLXX2zk GVxDOKtjnYwrEyWE2JDJH UYC8RxicZQRCYlqemnlY8 yIDMyIDAgUgov V4ObaXmwDDXbT1dFRk1ql FU8fXKoKw6OtNFnSJ4De4 16Yr3XLAgtRFyhSDAuFN0 ePNi7Nv5GNy8N FuSpEH5msu2OXJfuZyFqW F4nvi6QDAiRX5BvE6ReqO Z5JgCyHZY9LRVHJ7RhcHp opPqtsKK8BOTv Zfv7IDvOP1Seu7WpmlTiG xJmMeR8Nch8Yb1JdCIalk OfIArvUh9xoGBNr0zjCy4 dJZRzXBk3SXRf HOwxEU93GVikHuX6KYKdC cViJHNoZIOvHM4tHQQ6JM 9VW1SphhJXgFcjNvB4QCF dTZCEO5EsvhLB OS3sOD5DFxvMVY8uM521k dwgoe6dg9JCLJJuqMIYJK czRFVqcCdyGR9cgLVjOEz rY9GmhYReShDw QUbxVRyVS6E9zXHaN2Zko fQJGRFgurwpgH7kHx4+DQ pyjgBjUqgTRp2LKuDvVPN sGszJPkt5Eg9L zOq3ACRjN8NhTRWhRGIjh 8NoSd7NZZ9edKdbTzN0Hy 4+LWmfpXXqOF0AVgenUNL SteOwLAt6C9eO ZhHIEDdCPDwcawIiS6LuR 5z9qVmYkYiy7T6nuvDZjo wzF5lmo61N4O9+gYms0DJ PhqRCo6A9t3c9 gAL8HWfyIIh4HogqNn2o0 BxLoridpwBDY/uRlSXnyV yYZkQKqAMQ8cxqZYWmFTq cl5k3hBpK72ra vzCADVywquIa+cl62ze5y rOwvZtg1Re0JN9RiMHyr8 hTAcUEozEbxgc0Gjoqs8B BEZbMa3PsLHDk /7HtMh920uH9bM5knpVKC In7yCFHIhAXaCxe9t4rOb SnGQ8NeI7gXrOB8e5XrhF Yp6n16kXUZ5Nu RvIayawgcodHIYmkChnJi xckc/IiOY6zx9XoKMD+y+ qBaUOuInzf6JrsOm4UqoA I62xWYXnT02/A tD6RIn2onclpLd3KNO8ex 3RyZWFtDQplbmRvYmoNCg 5YWoWkBZLxEraTWko6Ee4 AVZQhKq9diIAy InvOWCbLD6InnUQzULSJS NwKI39KGy1HERYhFO8tQZ 00Fx0vnMZnAfJ8QAXlVw9 QD1IqQ79znA3z YY9FXSSoaYy0oF8ZSk9Nm AQ8oAUoUS0NzWHlHWnkBU 1Lqzvtk8PiPJW0 (more content not included)... Normal [facility] FT Blood GasesOrdered By: Ra raciel Marx on 08-09-2022 a/A Ratio Art 75.90 % Normal >=0.80% [facility] Resp Auto SS AaDO2 Art 21.9 mm[Hg] High 5.0 - 15.0 mmHg FT Resp Auto SS Allens Test Not Applicable (08/09/22 2:03 PM) Normal [facility] Resp Auto SS Base Excess Arterial 3.1 mmol/L Normal >=2.8mmol/L FTM C Resp Auto SS cCa2+ Art 4.86 mg/dL Normal 4.40 - 5.30 mg/dL FT Resp Auto SS cCl- Art 105.0 mmol/L Normal 101.0 - 111.0 mmol/L FT Resp Auto SS cGlu Art 117 mg/dL High 55 - 99 mg/dL FT Resp Auto SS cK+ Art 4.0 mmol/L Normal 3.5 - 5.3 mmol/L [facility] Resp Auto SS cLac Art 1.4 mmol/L Normal 0.5 - 2.2 mmol/L [facility] Resp Auto SS eyewear manufacturing supervisor+ Art 142.0 mmol/L Normal 135.0 - 145.0 mmol/L [facility] Resp Auto SS Drawn by RLG Invalid Interpretation Code [facility] Resp Auto SS FCOHb Art 1.0 % Low 1.5 - 4.9 % [facility] Resp Auto SS FIO2 BG 21 Invalid Interpretation Code [facility] Resp Auto SS FMetHb Art 0.5 % Normal 0.0 - 1.9 % [facility] Resp Auto SS FO2Hb Art 92.6 % Normal 92.0 - 100.0 % [facility] Resp Auto SS HCO3 (Bld) [Moles/Vol] 27.1 mmol/L High 22.0 - 26.0 mmol/L [facility] Resp Auto SS Hemoglobin (Bld) [Mass/Vol] 12.5 g/dL Normal 12.0 - 16.0 gm/dL [facility] Resp Auto SS P CO2 Arterial 48.9 mm[Hg] High 35.0 - 45.0 mmHg [facility] Resp Auto SS P O2 Arterial 68.8 mm[Hg] Low 80.0 - 100.0 mmHg [facility] Resp Auto SS pH Arterial 7.383 Normal 7.350 - 7.450 [facility] Resp Auto SS Sample Site R Brachial (08/09/22 2:03 PM) Normal [facility] Resp Auto SS Sample Type Arterial Draw (08/09/22 2:03 PM) Normal [facility] Resp Auto SS HEMATOLOGYOrdered By: SYSTEM SYSTEM [...] 16.3 E9/L High 4.0 - 11.0 E9/L [facility] HemeAutoSS Comment on above: Result Comment: Slid e reviewed by LW. PT & PTTon 08-09-2022 aPTT Coag (PPP) [Time] 31.4 second(s) Normal 25.1-36.5 [facility] Comment on above: Result Comment: Para [...] the same coagulation reagent and instrumentation as [facility]. Currently there are no coagulation studies available worldwide for children to 14 days, and no normal ranges. Heparin therapeutic range (represented by Anti-Factor Xa activity of 0.2 - 0.4 U/mL) corresponds to PTT of 56.6 - 109.0 sec. Performed By: #### 2 [id number], [id number], 10215331, 7940129, 36048822, [id number], [id number] ####[address] [place] [address] INR Coag (PPP) [Relative time] 0.9 {INR} Invalid Interpretation Code [facility] Comment on above: Result Comment: INR results are specifically intended to assess patients stabilized on long-term Anticoagulation therapy suggested INR?s ?Less Intensive Anticoagulation? 2.0 ? 3.0 Conventional Range 3.0 ? 4.5 Performed By: #### 2 [id number], 2993162, 23324567, 1377928, 92168088, 38654417, [id number] ####[facility] [address] [place] [address] PT Coag (PPP) [Time] 10.3 second(s) Normal 9.4-12.5 [facility] Comment on above: Result Comment: 15 [...] the same coagulation reagent and instrumentation as [facility]. Currently there are no coagulation studies available worldwide for children to 14 days, and no normal ranges. Performed By: #### 2 [id number], 9961089, 49616408, 3198072, 79479443, 18659499, [id number] ####[facility] [address] [place] [address] Pre-Arrival Noteon Pre-Arrival Note Pre-Arrival Summary Name: , Current Date: 08/09/2022 13:09:29 EDT Gender: Female Date of : Age: 62 Pre-Arrival Type: EMS ETA: 08/09/2022 13:33:00 EDT Primary Care Physician: Presenting Problem: sob Pre-Arrival User: John Martin Referring Source: Location: [place] Completion Date/Time: 08/09/2022 13:03:00 [facility] Emergency Department Pre-Hospital Report Form Vital Signs: Pre-Hospital Report: Treatment in Route: Response to Treatment: Misc. Issues: Normal [facility] Troponin 0 Hr.on 08-09-2022 Troponin I.cardiac [Mass/Vol] 4.00 pg/mL Low 10.10-27.10 [facility] Comment on above: Result Comment: The 95% CI (Confidence Interval) PPV (Positive Predictive Value) for myocardial infarction in females is 38 pg/mL, in males 51 pg/mL. The results should be used in conjunction with clinical conditions of myocardial infarction. ([employer] High Sensitivity Troponin I Instructions For Use, [employer], December 2017) Performed By: #### 2 [id number], 8392961, 60350196, 6894377, 08224886, 52750692, [id number] ####[facility] [address] [place] [address] Troponin 3 Hr.on 08-09-2022 Troponin I.cardiac [Mass/Vol] 7.00 pg/mL Low 10.10-27.10 [facility] Comment on above: Result Comment: The 95% CI (Confidence Interval) PPV (Positive Predictive Value) for myocardial infarction in females is 38 pg/mL, in males 51 pg/mL. The results should be used in conjunction with clinical conditions of myocardial infarction. ([employer] High Sensitivity Troponin I Instructions For Use, [employer], December 2017) Performed By: #### 1 [id number] ####[id number] [place] [address] XR Chest Single Viewon 08-09 XR Chest [...] na DAP = na Normal [facility] eGFRon 08-09-2022 GFR/1.73 sq M.predicted among blacks MDRD (S/P/Bld) [Vol rate/Area] mL/min/{1.73_m2} Normal >=59 [facility] Comment on above: Order Comment: Order added by Discern Expert. Result Comment: eGFR is race adjusted. AA=. Performed By: #### 2 752834, 2076141, 76327018, 8610705, 11442004, 51757691, [id number] ####[facility] [address] [place] [address] GFR/1.73 sq M.predicted among non-blacks MDRD (S/P/Bld) [Vol rate/Area] 50 mL/min/1.73 m2 Low >=59 [facility] Comment on above: Order Comment: Order added by Discern Expert. Result Comment: Facilities Operator valeria kidney disease could be indicated at eGFR's of less than 60 mL/min/1.73m2. Kidney failure is indicated at less than 15 mL/min/1.73m2. Performed By: #### 2 817680, 9569306, 36321899, 2229445, 28240000, 62394934, 02292401 ####[facility] [address] [place] [address] CBC W MANUAL DIFFon 08-02-19 ATYPICAL LYMPH # Normal [facility] Comment on above: Performed By: #### Isabell PONCE ####[facility] [address] [id number] Yañez ATYPICAL LYMPH % Normal [facility] Comment on above: Performed By: #### Isabell PONCE ####[facility] [address] [place] [id number]. Nahed Yañez BAND # 0.9 103/ul Critically high 0.0-0.3 [facility] Comment on above: Performed By: #### C BCMAN ####[facility] [address] [place] [address]Dr. Nahed Yañez BAND % 5 % Normal 0-5 [facility] Comment on above: Performed By: #### C BCMAN ####[facility] [address] [place] [address]Dr. Yiashley Yañez BASOM # 0.00 103/ul Normal 0.00-0.10 [facility] Comment on above: Performed By: #### C BCISAIAH ####[facility] [address] [place] [address]Dr. Nahed Yañez BASOM % 0.0 % Critically low 0.2-2.[address] [facility] Comment on above: Performed By: #### C BCISAIAH ####[facility] [address] [place] [address]Dr. Nahed Yañez BLAST # Normal [facility] Comment on above: Performed By: #### C BCISAIAH ####[facility] [address] [place] [address]Dr. Yilan Yañez BLAST % Normal [facility] Comment on above: Performed By: #### C BCISAIAH ####[facility] [address] [place] [address]Dr. Nahed Yañez CORRECTED WBC Normal 4.0-11.0 [facility] Comment on above: Performed By: #### C BCMAN ####[facility] [address] [place] [address]Dr. Nahed Yañez EOS # 0.00 103/ul Normal 0.00-0.70 [facility] Comment on above: Performed By: #### C BCMAN ####[facility] [address] [place] [address]Dr. Nahed Yañez EOS% 0.0 % Critically low 0.9-7.[address] [facility] Comment on above: Performed By: #### C BCISAIAH ####[facility] [address] [place], [place] [address]Ic. Nahed Yañez HCT 39.5 % Normal 36.0-48.0 [facility] Comment on above: Performed By: #### C ROSARIO ####[facility] [address] [place] [phone]. Nahed Yañez HGB 13.0 g/dl Normal 12.0-16.0 [facility] Comment on above: Performed By: #### C ROSARIO ####[facility] [address] [place] [phone]. Nahed Yañez LYMPHM # 1.72 103/ul Normal 1.20-3.80 [facility] Comment on above: Performed By: #### C ROSARIO ####[facility] [address] [place] [phone]. Nahed Yañez LYMPHM% 10.0 % Critically low 20.5-60.[address] [facility] Comment on above: Performed By: #### Isabell PONCE ####[facility] [address] [place] [address]Dr. Nahed Yañez MCH 28.7 pg Normal 26.7-34.0 [facility] Comment on above: Performed By: #### Isabell PONCE ####[facility] [address] [place] [address]Dr. Nahed Yañez MCHC 32.9 g/dl Normal 29.9-35.2 [facility] Comment on above: Performed By: #### C ROSARIO ####[facility] [address] [place] [address]Dr. Nahed Yañez MCV 87.2 fL Normal 81.0-99.0 [facility] Comment on above: Performed By: #### C ROSARIO ####[facility] [address] [place] [phone]. Nahed Yañez METAMYELOCYTE # Normal [facility] Comment on above: Performed By: #### C ROSARIO ####[facility] [address] [place] [address]Dr. Nahed Yañez METAMYELOCYTE % Normal [facility] Comment on above: Performed By: #### C ROSARIO ####[facility] [address] [place], [place] [address]Xh. Nahed Yañez MONOM# 0.86 103/ul Critically high 0.30-0.80 [facility] Comment on above: Performed By: #### C ROSARIO ####[facility] [address] [place], [place] [address]Hm. Nahed Yañez MONOM% 5.0 % Normal 1.7-12.0 [facility] Comment on above: Performed By: #### C ROSARIO ####[facility] [address] [place], [place] [address]Cn. Nahed Yañez MPV 9.8 fL Normal 9.5-13.5 [facility] Comment on above: Performed By: #### C ROSARIO ####[facility] [address] [place] [phone]. Nahed Yañez MYELOCYTE # Normal [facility] Comment on above: Performed By: #### C ROSARIO ####[facility] [address] [place], [place] [address]Mz. Nahed Yañez MYELOCYTE % Normal [facility] Comment on above: Performed By: #### C ROSARIO ####[facility] [address] [place], [place] [address]Bx. Nahed Yañez NRBC Normal [facility] Comment on above: Performed By: #### C ROSARIO ####[facility] [address] [place] [phone]. Nahed Yañez PLT 388 103/ul Normal 150-450 [facility] Comment on above: Performed By: #### C ROSARIO ####[facility] [address] [place] [phone]. Nahed Yañez RBC 4.53 106/ul Normal 4.20-5.40 [facility] Comment on above: Performed By: #### C ROSARIO ####[facility] [address] [place] [phone]. Rosemarieashley Otilio RDW 14.4 % Normal 11.0-15.0 [facility] Comment on above: Performed By: #### C BCMAN ####[facility] [address] [place] [address]Dr. Nahed Yañez SEG # 13.76 103/ul Critically high 1.40-6.50 [facility] Comment on above: Performed By: #### C BCMAN ####[facility] [address] [place] [address]Dr. Nahed Yañez SEG % 80.0 % Critically high 43.0-75.0 [facility] Comment on above: Performed By: #### C ROSARIO ####[facility] [address] [place] [address]Dr. Nahed Yañez WBC 17.2 103/ul Critically high 4.0-11.0 [facility] Comment on above: Performed By: #### C ROSARIO ####[facility] [address] [place] [address]Dr. Nahed Yañez MAGNESIUMon 08-01-2022 Magnesium [Mass/Vol] 2.0 mg/dL Normal 1.8-2.4 [facility] Comment on above: Performed By: #### MG COLE, CMP ####[facility] [address] [place] [address]DrShaun Rosemarieashley Yañez POINT OF CARE GLUCOSEon 07-13 Glucose [Mass/Vol] 267 mg/dL Critically high 74-106 [facility] Comment on above: Performed By: #### P OCGLUC ####[facility] [address] [place] [address]DrShaun Yañez PROF 14(COMP METB)on 023 Albumin [Mass/Vol] 3.4 g/dL Normal 3.4-5.0 [facility] Comment on above: Performed By: #### MG COLE, CMP ####[facility] [address] [place] [address]Dr. Nahed Yañez Albumin/Globulin [Mass ratio] 0.9 {ratio} Normal [facility] Comment on above: Performed By: #### MG COLE, CMP ####[facility] [address] [place] [phone]. Nahed Yañez ALP [Catalytic activity/Vol] 100 U/L Normal 46-116 [facility] Comment on above: Performed By: #### MG COLE, CMP ####[facility] [address] [place] [address]Dr. Nahed Yañez ALT [Catalytic activity/Vol] 19 U/L Normal 14-59 [facility] Comment on above: Performed By: #### MG COLE, CMP ####[facility] [address] [place] [address]Dr. Nahed Yañez Anion gap [Moles/Vol] 12.7 mmol/L Normal [facility] Comment on above: Performed By: #### MG COLE, CMP ####[facility] [address] [place] [address]Dr. Nahed Yañez AST [Catalytic activity/Vol] 13 U/L Critically low 15-37 [facility] Comment on above: Performed By: #### MG COLE, CMP ####[facility] [address] [place] [address]Dr. Nahed Yañez Bilirubin [Mass/Vol] 0.4 mg/dL Normal 0.2-1.0 [facility] Comment on above: Performed By: #### MG COLE, CMP ####[facility] [address] [place] [address]Dr. Nahed Yañez Calcium [Mass/Vol] 9.5 mg/dL Normal 8.5-10.1 [facility] Comment on above: Performed By: #### MG COLE, CMP ####[facility] [address] [place] [address]Dr. Nahed Yañez Chloride [Moles/Vol] 100 mmol/L Normal 98-107 [facility] Comment on above: Performed By: #### MG COLE, CMP ####[facility] [address] [place] [address]Dr. Rosemarieashley Yañez CO2 [Moles/Vol] 27.1 mmol/L Normal 21.0-32.0 [facility] Comment on above: Performed By: #### MG COLE, CMP ####[facility] [address] [place] [address]Dr. Nahed Yañez Creatinine [Mass/Vol] 1.16 mg/dL Critically high 0.55-1.02 [facility] Comment on above: Performed By: #### MG COLE, CMP ####[facility] [address] [place], [place] [address]Dr. Nahed Yañez EGFR-AF MOSOTHO 58 mL/min/1.73m2 Critically low >=60 [facility] Comment on above: Performed By: #### MG COLE, CMP ####[facility] [address] [place], [place] [address]Dr. Nahed Yañez EGFR-NON AF MOSOTHO 47 mL/min/1.73m2 Critically low >=60 [facility] Comment on above: Performed By: #### MG COLE, CMP ####[facility] [address] [place], [place] [address]Dr. Nahed Yañez Globulin (S) [Mass/Vol] 3.6 g/dL Normal [facility] Comment on above: Performed By: #### MG COLE, CMP ####[facility] [address] [place] [address]Dr. Rosemarieashley Yañez Glucose [Mass/Vol] 175 mg/dL Critically high 74-106 [facility] Comment on above: Performed By: #### MG COLE, CMP ####[facility] [address] [place], [place] [address]Dr. Nahed Yañez Potassium [Moles/Vol] 3.8 mmol/L Normal 3.5-5.1 [facility] Comment on above: Performed By: #### MG COLE, CMP ####[facility] [address] [place] [address]Dr. Nahed Yañez Protein [Mass/Vol] 7.0 g/dL Normal 6.4-8.2 [facility] Comment on above: Performed By: #### MG COLE, CMP ####[facility] [address] [place], [place] [address]Dr. Nahed Yañez Sodium [Moles/Vol] 136 mmol/L Normal 136-145 [facility] Comment on above: Performed By: #### MG COLE, CMP ####[facility] [address] [place], [place] [address]Dr. Nahed Yañez Urea nitrogen [Mass/Vol] 25.0 mg/dL Critically high 7.0-18.0 [facility] Comment on above: Performed By: #### MG COLE, CMP ####[facility] [address] [place], [place] [address]Dr. Nahed Yañez Urea nitrogen/Creatinine [Mass ratio] 21.6 mg/mg Normal [facility] Comment on above: Performed By: #### MG COLE, CMP ####[facility] [address] [place], [place] [address]Dr. Nahed Yañez THEOPHYLLINEon 08-01-2022 THEOPHYLLINE 17.1 ug/mL Normal 10.0-20.0 [facility] Comment on above: Performed By: #### MG COLE, CMP ####[facility] [facility] Dsuqtrofg[address] [place], [place] [address]Dr. Nahed Yañez CBC AUTO DIFFon 07-31-2022 BASO # 0.0 103/ul Normal 0.0-0.1 [facility] Comment on above: Performed By: #### C BC ####[facility] Mbkhbpnoyc[address] [place], [place] [address]Dr. Nahed Yañez Basophils/100 WBC (Bld) 0.2 % Normal 0.2-2.0 [facility] Comment on above: Performed By: #### C BC ####[facility] Jzyqjlsynm3[address] [place], [place] [address]Dr. Nahed Yañez EO # 0.0 103/ul Normal 0.0-0.7 [facility] Comment on above: Performed By: #### C BC ####[facility] Yeaxpezmao8[address] [place], [place] [address]Dr. Nahed Yañez Eosinophils/100 WBC (Bld) 0.0 % Critically low 0.9-7.0 [facility] Comment on above: Performed By: #### C BC ####[facility] [address]qbrusswm[address] [place] [address]Dr. Nahed Yañez Erythrocyte distribution width (RBC) [Ratio] 14.2 % Normal 11.0-15.0 [facility] Comment on above: Performed By: #### C BC ####[facility] Ungdfvzyrm6826[address] [place], [place] [address]Dr. Nahed Yañez Hematocrit (Bld) [Volume fraction] 36.0 % Normal 36.0-48.0 [facility] Comment on above: Performed By: #### C BC ####[facility] Nratbnrmft8[address] [place], [place] [address]Dr. Nahed Yañez Hemoglobin (Bld) [Mass/Vol] 11.4 g/dL Critically low 12.0-16.0 [facility] Comment on above: Performed By: #### C BC ####[facility] Dfasuattof7174[address] [place], [place] [address]Dr. Nahed Yañez IG # 0.21 10e3/ul Critically high 0.00-0.03 [facility] Comment on above: Performed By: #### C BC ####[facility] Mloqwoxpak65[address] [place], [place] [address]Dr. Nahed Yañez IG % 1.8 % Critically high 0.0-0.5 [facility] Comment on above: Performed By: #### C BC ####[facility] Xomxxqweyc1033[address] [place], [place] [address]Dr. Nahed Yañez LYMPH # 1.3 103/ul Normal 1.2-3.8 [facility] Comment on above: Performed By: #### C BC ####[facility] Wbbiigwfib[address] [place], [place] [address]Dr. Nahed Yañez Lymphocytes/100 WBC (Bld) 11.2 % Critically low 20.5-60.0 [facility] Comment on above: Performed By: #### C BC ####[facility] Xzzqahanyi[address] [place], [place] [address]Dr. Nahed Otilio MANUAL DIFF REQ NO Normal [facility] Comment on above: Performed By: #### C BC ####[facility] Xjjstiiqiy4[address] [place] [address]Dr. Nahed Yañez MCH (RBC) [Entitic mass] 27.7 pg Normal 26.7-34.0 [facility] Comment on above: Performed By: #### C BC ####[facility] Weioijgzlc0323 [place] [address]Dr. Nahed Yañez MCHC (RBC) [Mass/Vol] 31.7 g/dL Normal 29.9-35.2 [facility] Comment on above: Performed By: #### C BC ####[facility] Syqrhatrof[address] [place] [address]Dr. Nahed Otilio MCV (RBC) [Entitic vol] 87.6 fL Normal 81.0-99.0 [facility] Comment on above: Performed By: #### C BC ####[facility] Xamjelmmmo9547[address] [place], [place] [address]Dr. Nahed Otilio MONO # 0.8 103/ul Normal 0.3-0.8 [facility] Comment on above: Performed By: #### C BC ####[facility] Ppbwyiytzs6919[address] [place], [place] [address]Dr. Rosemarieashley Yañez Monocytes/100 WBC (Bld) 7.0 % Normal 1.7-12.0 [facility] Comment on above: Performed By: #### C BC ####[facility] Imvtcminve[address] [place], [place] [address]Dr. Rosemarieashley Otilio NEUT # 9.2 103/ul Critically high 1.4-6.5 [facility] Comment on above: Performed By: #### C BC ####[facility] Elrtmrezgo[address] [place], [place] [address]Dr. Rosemarieashley Yañez Neutrophils/100 WBC (Bld) 79.8 % Critically high 43.0-75.0 [facility] Comment on above: Performed By: #### C BC ####[facility] Wz[address]sc[address] [place] [address]. Nahed Yañez Platelet mean volume (Bld) [Entitic vol] 9.8 fL Normal 9.5-13.5 [facility] Comment on above: Performed By: #### C BC ####[facility] Xoyuwjnami[address] [place] [address]Dr. Nahed Yañez PLT 317 103/ul Normal 150-450 [facility] Comment on above: Performed By: #### C BC ####[facility] Ekbqiiqzps9884 [place] [address]Dr. Nahed Yañez RBC 4.11 106/ul Critically low 4.20-5.40 [facility] Comment on above: Performed By: #### C BC ####[facility] Ahntbdhncj[address] [place] [address]Dr. Nahed Yañez WBC 11.5 103/ul Critically high 4.0-11.0 [facility] Comment on above: Performed By: #### C BC ####[facility] Pdzuugbppp2[address] [place] [address]Dr. Nahed Yañez MAGNESIUMon 07-31-2022 Magnesium [Mass/Vol] 1.8 mg/dL Normal 1.8-2.4 [facility] Comment on above: Performed By: #### M JUDY Moore, [facility] ####[facility] Aekwlhtqbg[address] [place] [address]Dr. Nahed Yañez POINT OF CARE GLUCOSEon 07-13 Glucose [Mass/Vol] 217 mg/dL Critically high 74-106 [facility] Comment on above: Performed By: #### P OCGLUC ####[facility] Ueabumwnes[address] [place] [address]Dr. Nahed Yañez Glucose [Mass/Vol] 169 mg/dL Critically high 74-106 [facility] Comment on above: Performed By: #### P OCGLUC ####[facility] Kgxgnnbdxs5[address] [place] [address]Dr. Nahed Yañez Glucose [Mass/Vol] 297 mg/dL Critically high 74-106 [facility] Comment on above: Performed By: #### P OCGLUC ####[facility] Owcncsjsdh26[address] [place] [address]Dr. Nahed Yañez Glucose [Mass/Vol] 233 mg/dL Critically high 74-106 [facility] Comment on above: Performed By: #### P OCGLUC ####[facility] Mqmykjdava9[address] [place] [address]Dr. Nahed Yañez PROF 14(COMP METB)on 023 Albumin [Mass/Vol] 3.0 g/dL Critically low 3.4-5.0 [facility] Comment on above: Performed By: #### JUDY Castro, CMP ####[facility] Ghslybivux[address] [place] [address]Dr. Nahed Yañez Albumin/Globulin [Mass ratio] 0.8 {ratio} Normal [facility] Comment on above: Performed By: #### JUDY Castro, CMP ####[facility] Ugsldbrdzv9[address] [place], [place] [address]Dr. Nahed Yañez ALP [Catalytic activity/Vol] 83 U/L Normal 46-116 [facility] Comment on above: Performed By: #### JUDY Castro, CMP ####[facility] Jszxdwijld6350 [place] [address]Dr. Nahed Yañez ALT [Catalytic activity/Vol] 21 U/L Normal 14-59 [facility] Comment on above: Performed By: #### JUDY Castro, CMP ####[facility] Gemwiqekhy6228 [place] [address]Dr. Nahed Yañez Anion gap [Moles/Vol] 14.8 mmol/L Normal [facility] Comment on above: Performed By: #### JUDY Castro, CMP ####[facility] Yxlqcirkes3016 [place] [address]Dr. Nahed Yañez AST [Catalytic activity/Vol] 13 U/L Critically low 15-37 [facility] Comment on above: Performed By: #### JUDY Castro, CMP ####[facility] Vnokhkjznh4898 [place] [address]Dr. Nahed Yañez Bilirubin [Mass/Vol] 0.2 mg/dL Normal 0.2-1.0 [facility] Comment on above: Performed By: #### JUDY Castro CMP ####[facility] Afprlihcgz7[address] [place], [place] [address]Dr. Nahed Yañez Calcium [Mass/Vol] 9.2 mg/dL Normal 8.5-10.1 [facility] Comment on above: Performed By: #### JUDY Castro, CMP ####[facility] Dnsyyrdlqb3122[address] [place], [place] [address]Dr. Nahed Yañez Chloride [Moles/Vol] 101 mmol/L Normal 98-107 [facility] Comment on above: Performed By: #### JUDY Castro CMP ####[facility] Uvmpptzaml1746[address] [place], [place] [address]Dr. Nahed Yañez CO2 [Moles/Vol] 26.5 mmol/L Normal 21.0-32.0 [facility] Comment on above: Performed By: #### JUDY Castro, CMP ####[facility] Tpfwgdgygi[address]27[address] [place], [place] [address]Dr. Nahed Yañez Creatinine [Mass/Vol] 1.04 mg/dL Critically high 0.55-1.02 [facility] Comment on above: Performed By: #### JUDY Castro CMP ####[facility] Amomyliyow4218[address] [place], [place] [address]Dr. Nahed Yañez EGFR-AF MOSOTHO >60 Normal >=60 [facility] Comment on above: Performed By: #### JUDY Castro CMP ####[facility] Xungfxutrh7531[address] [place], [place] [address]Dr. Nahed Yañez EGFR-NON AF MOSOTHO 54 mL/min/1.73m2 Critically low >=60 [facility] Comment on above: Performed By: #### JUDY Castro CMP ####[facility] Jwbrborbxz6949[address] [place], [place] [address]Dr. Nahed Yañez Globulin (S) [Mass/Vol] 3.6 g/dL Normal [facility] Comment on above: Performed By: #### JUDY Castro, CMP ####[facility] Lulaeinfrb4475 [place] [address]Dr. Nahed Yañez Glucose [Mass/Vol] 171 mg/dL Critically high 74-106 [facility] Comment on above: Performed By: #### JUDY Castro, CMP ####[facility] Nwphobcbzp4796 [place] [address]Dr. Nahed Yañez Potassium [Moles/Vol] 3.3 mmol/L Critically low 3.5-5.1 [facility] Comment on above: Performed By: #### JUDY Castro CMP ####[facility] Rfgznjuzym0358 [place] [address]Dr. Nahed Yañez Protein [Mass/Vol] 6.6 g/dL Normal 6.4-8.2 [facility] Comment on above: Performed By: #### JUDY Castro CMP ####[facility] Tdbfmxwggt15[address] [place], [place] [address]Dr. Nahed Yañez Sodium [Moles/Vol] 139 mmol/L Normal 136-145 [facility] Comment on above: Performed By: #### JUDY Castro CMP ####[facility] Mnzetsnsuu[address] [place], [place] [address]Dr. Nahed Yañez Urea nitrogen [Mass/Vol] 23.0 mg/dL Critically high 7.0-18.0 [facility] Comment on above: Performed By: #### JUDY Castro CMP ####[facility] Snmygjngpt4617[address] [place], [place] [address]Dr. Nahed Yañez Urea nitrogen/Creatinine [Mass ratio] 22.1 mg/mg Normal [facility] Comment on above: Performed By: #### JUDY Castro, CMP ####[facility] Mixzhhkjnc4174[address] [place], [place] [address]Dr. Nahed Yañez THEOPHYLLINEon 07-31-2022 THEOPHYLLINE 14.2 ug/mL Normal 10.0-20.0 [facility] Comment on above: Performed By: #### JUDY Castro, CMP ####[facility] Qdknawcpwa13[address] [place], [place] [address]Dr. Nahed Yañez BLOOD CULTURE ID PANELon A. baumannii Not detected Normal NOT DETECTED [facility] Comment on above: Performed By: #### B CID2 ####[facility] Qrtnnchptw31[address] [place] [address]Dr. Nahed Yañez Bacteriodes fragilis Not detected Normal NOT DETECTED [facility] Comment on above: Performed By: #### B CID2 ####[facility] Yjkdzvhtim4574 [place] [address]Dr. Nahed Yañez BCID CONTROLS PASSED Normal [facility] Comment on above: Performed By: #### B CID2 ####[facility] Muosehphcw2125 [place] [address]Dr. Nahed Yañez BCIDBTHD BLOOD CULTURE BOTTLE INFORMATION Normal [facility] Comment on above: Performed By: #### B CID2 ####[facility] Bqpjtosxkh5339[address] [place], [place] [address]Dr. Nahed Yañez BCIDHD1 ANTIMICROBIAL RESISTANCE [facility] Comment on above: Performed By: #### B CID2 ####[facility] Aoojtmdqzh[address]01[address] [place], [place] [address]Dr. Nahed Yañez BCIDHD2 SEE BELOW Rochelle [facility] Comment on above: Result Comment: Note : Antimicrobial resitance can occur via multiple mechanisms. A Not Detected result for the [employer] antomicrobial resistance gene assays does not indicate antimicrobial susceptibility. Subculturing is required for species identification and susceptibility testing of isolates. Performed By: #### B CID2 ####[facility] Elvnbjzalh[address] [place], [place] [address]Dr. Nahed Yañez BCIDHD3 Positive Normal [facility] Comment on above: Performed By: #### B CID2 ####[facility] Blvfqrqiei5138 [place] [address]Dr. Nahed Yañez BCIDHD4 Negative Rochelle [facility] Comment on above: Performed By: #### B CID2 ####[facility] Waxkxttfvs0869 [place] [address]Dr. Nahed Yañez BCIDHD5 YEAST Normal [facility] Comment on above: Performed By: #### B CID2 ####[facility] Nankgvlegr4951 [place] [id number]. Nahed Yañez Bottle Set: Set 2 Normal [facility] Comment on above: Performed By: #### B CID2 ####[facility] Imkcyzsvau7895 [place] [address]Dr. Nahed Yañez Bottle: Pediatric Normal [facility] Comment on above: Performed By: #### B CID2 ####[facility] Rqvbrysvsx2025 [place] [address]Dr. Nahed Yañez C. neoformans/gattii Not detected Normal NOT DETECTED [facility] Comment on above: Performed By: #### B CID2 ####[facility] Baxibjxfme224[address] [place], [place] [address]Dr. Nahed Yañez Sil albicans Not detected Normal NOT DETECTED [facility] Comment on above: Performed By: #### B CID2 ####[facility] Lhbmqluvmy8769[address] [place], [place] [address]Dr. Nahed Yañez Sil auris Not detected Normal NOT DETECTED The [facility] Comment on above: Performed By: #### B CID2 ####[facility] Rcmxfqifhz718[address] [place], [place] [address]Dr. Nahed Yañez Sil glabrata Not detected Normal NOT DETECTED [facility] Comment on above: Performed By: #### B CID2 ####[facility] Nevfxliimx1839 [place] [address]Dr. Nahed Yañez Sil Krusei Not detected Normal NOT DETECTED [facility] Comment on above: Performed By: #### B CID2 ####[facility] Wjtzmluiww9561 [place] [address]Dr. Nahed Yañez Sil Parapsilosis Not detected Normal NOT DETECTED [facility] Comment on above: Performed By: #### B CID2 ####[facility] Qtlzqirwfl34[address] [place], [place] [address]Dr. Nahed Yañez Sil Tropicalis Not detected Normal NOT DETECTED [facility] Comment on above: Performed By: #### B CID2 ####[facility] Hnxdsoxrlh4674[address] [place], [place] [address]Dr. Nahed Yañez CTX-M Resistant Gene Not Applicable Normal NOT DETECTE D [facility] Comment on above: Performed By: #### B CID2 ####[facility] Hxxogeysqw6329[address] [place], [place] [address]Dr. Nahed Otilio E. Cloacae complex Not detected Normal NOT DETECTED [facility] Comment on above: Performed By: #### B CID2 ####[facility] Tvbpjoiyff9888[address] [place], [place] [address]Dr. Nahed Yañez E. faecalis Not detected Normal NOT DETECTED [facility] Comment on above: Performed By: #### B CID2 ####[facility] Uwpajumlmw6507[address] [place], [place] [address]Dr. Nahed Yañez E. faecium Not detected Normal NOT DETECTED The [facility] Comment on above: Performed By: #### B CID2 ####[facility] Cohrdqyyny09[address] [place], [place] [address]Dr. Nahed Yañez Enterobacteriaceae Not detected Normal NOT DETECTED [facility] Comment on above: Performed By: #### B CID2 ####[facility] Ixnhohwamr164[address] [place], [place] [address]Dr. Nahed Yañez Escherichia coli Not detected Normal NOT DETECTED [facility] Comment on above: Performed By: #### B CID2 ####[facility] Thsomfhujx1306[address] [place], [place] [address]Dr. Nahed Yañez H. influenzae Not detected Normal NOT DETECTED The [facility] Comment on above: Performed By: #### B CID2 ####[facility] Jujphhctmz1309[address] [place], [place] [address]Dr. Nahed Yañez IMP Resistant Gene Not Applicable Normal NOT DETECTED [facility] Comment on above: Performed By: #### B CID2 ####[facility] Gvsklfaqkc3684[address] [place], [place] [address]Dr. Nahed Yañez K. oxytoca Not detected Normal NOT DETECTED [facility] Comment on above: Performed By: #### B CID2 ####[facility] Tbfvlwihzh8214[address] [place], [place] [address]Dr. Nahed Yañez K. pneumoniae Not detected Normal NOT DETECTED [facility] Comment on above: Performed By: #### B CID2 ####[facility] Qvgzncirbz0073[address] [place], [place] [address]Dr. Nahed Yañez Klebsiella aerogenes Not detected Normal NOT DETECTED [facility] Comment on above: Performed By: #### B CID2 ####[facility] Hjsipuezfs0910 [place] [address]Dr. Nahed Yañez KPC Resistant Gene Not detected Normal NOT DETECTED [facility] Comment on above: Performed By: #### B CID2 ####[facility] Jspwmnoxwv340[address] [place], [place] [address]Dr. Nahed Yañez List. monocytogenes Not detected Normal NOT DETECTED [facility] Comment on above: Performed By: #### B CID2 ####[facility] Ddmzfxefvx260[address] [place], [place] [address]Dr. Nahed Yañez Mcr-1 Resistant Gene Not Applicable Normal NOT DETECTE D [facility] Comment on above: Performed By: #### B CID2 ####[facility] Ildclourbm3707[address] [place], [place] [address]Dr. Nahed Yañez mecA/C Not Applicable Normal NOT DETECTED [facility] Comment on above: Performed By: #### B CID2 ####[facility] Yecfkqiyfg74[address] [place], [place] [address]Dr. Nahed Yañez mecA/C MREJ Not Applicable Normal NOT DETECTED The [facility] Comment on above: Performed By: #### B CID2 ####[facility] Bpnnztwwjd1249[address] [place], [place] [address]Dr. Nahed Yañez N. meningitidis Not detected Normal NOT DETECTED The [facility] Comment on above: Performed By: #### B CID2 ####[facility] Ozsbnnvuyi4892[address] [place], [place] [address]Dr. Nahed Yañez NDM Resistant Gene Not Applicable Normal NOT DETECTED [facility] Comment on above: Performed By: #### B CID2 ####[facility] Riretcvvky023[address] [place], [place] [address]Dr. Nahed Yañez Oxa-48-like Not Applicable Normal NOT DETECTED The [facility] Comment on above: Performed By: #### B CID2 ####[facility] Nkjgsgfyfa6956 [place] [address]Dr. Nahed Yañez Proteus Not detected Normal NOT DETECTED [facility] Comment on above: Performed By: #### B CID2 ####[facility] Kwgtfxzoyz8466 [place] [address]Dr. Nahed Yañez Pseud. aeruginosa Not detected Normal NOT DETECTED [facility] Comment on above: Performed By: #### B CID2 ####[facility] Qwlmovztbz8676[address] [place], [place] [address]Dr. Nahed Yañez S. maltophilia Not detected Normal NOT DETECTED [facility] Comment on above: Performed By: #### B CID2 ####[facility] Mdhugwsata5633[address] [place], [place] [address]Dr. Nahed Yañez Salmonella Not detected Normal NOT DETECTED [facility] Comment on above: Performed By: #### B CID2 ####[facility] Nnijwzejzd2884[address] [place], [place] [address]Dr. Nahed Yañez Seratia marcescens Not detected Normal NOT DETECTED [facility] Comment on above: Performed By: #### B CID2 ####[facility] Ucpqwffzzq1228[address] [place], [place] [address]Dr. Nahed Yañez Site: R AC Normal [facility] Comment on above: Performed By: #### B CID2 ####[facility] Ucmpaamrer3035[address] [place], [place] [address]Dr. Nahed Yañez Staph. aureus Not detected Normal NOT DETECTED The [facility] Comment on above: Performed By: #### B CID2 ####[facility] Udbklpwvln3065[address] [place], [place] [address]Dr. Nahed Yañez Staph. epidermidis Not detected Normal NOT DETECTED [facility] Comment on above: Performed By: #### B CID2 ####[facility] Vamimcnszk2008[address] [place], [place] [address]Dr. Nahed Yañez Staph. lugdunensis Not detected Normal NOT DETECTED [facility] Comment on above: Performed By: #### B CID2 ####[facility] Uxpshfavdk7[address] [place], [place] [address]Dr. Nahed Yañez Staphylococcus Detected Critically abnormal NOT DETECTED [facility] Comment on above: Performed By: #### B CID2 ####[facility] Snkfvujrqm124[address] [place], [place] [address]Dr. Nahed Yañez Strep. agalactiae Not detected Normal NOT DETECTED [facility] Comment on above: Performed By: #### B CID2 ####[facility] Pvuwsskdsh986[address] [place], [place] [address]Dr. Nahed Yañez Strep. pneumoniae Not detected Normal NOT DETECTED [facility] Comment on above: Performed By: #### B CID2 ####[facility] Uolnfstwbz420[address] [place], [place] [address]Dr. Nahed Yañez Strep. pyogenes Not detected Normal NOT DETECTED [facility] Comment on above: Performed By: #### B CID2 ####[facility] Xwmxkigzru2854[address] [place], [place] [address]Dr. Nahed Yañez Streptococcus Not detected Normal NOT DETECTED The [facility] Comment on above: Performed By: #### B CID2 ####[facility] Veljegpygt[address] [place], [place] [address]Dr. Nahed Yañez Tucker/B Resist. Gene Not detected Normal NOT DETECTED [facility] Comment on above: Performed By: #### B CID2 ####[facility] Luwltqnlxd0715[address] [place], [place] [address]Dr. Nahed Yañez VIM Resistant Gene Not Applicable Normal NOT DETECTED [facility] Comment on above: Performed By: #### B CID2 ####[facility] Xewxxmyclx3652[address] [place], [place] [address]Dr. Nahed Yañez CARDIAC FRANCISCO 3-6on 3 CK [Catalytic activity/Vol] 25 U/L Critically low 26-192 [facility] Comment on above: Performed By: #### C MREP ####[facility] Nuvvpxzeuz6[address] [place], [place] [address]Dr. Nahed Yañez CK.MB [Mass/Vol] ng/mL Normal <=3.60 [facility] Comment on above: Performed By: #### C MREP ####[facility] Mwxfbzzqhl1685 [place] [id number]. Nahed Yañez HSTROP 35.8 pg/mL Normal 4.0-51.3 [facility] Comment on above: Result Comment: CUT- OFF POINTS HAVE BEEN ESTABLISHED BASED ON THE FOURTH UNIVERSAL DEFINITIONS OF MYOCARDIALINFARCTION. THE UPPER REFERENCE LIMIT (URL) OF TROPONIN, DEFINED THE 99TH PERCENTILE OFcTnI DISTRIBUTION IN A REFERENCE POPULATION, HAS BEEN CONFIRMED THE DECISION THRESHOLDFOR [place] DIAGNOSIS. Performed By: #### C MREP ####[facility] [address] [place] [address]Dr. Nahed Otilio CK [Catalytic activity/Vol] 28 U/L Normal 26-192 [facility] Comment on above: Performed By: #### C MREP ####[facility] Fgimuptczf[address] [place], [place] [address]Dr. Rosemarieashley Yañez CK.MB [Mass/Vol] ng/mL Normal <=3.60 [facility] Comment on above: Performed By: #### C MREP ####[facility] Cwofnddczs[address] [place], [place] [address]Dr. Nahed Otilio HSTROP 36.8 pg/mL Normal 4.0-51.3 [facility] Comment on above: Result Comment: CUT- OFF POINTS HAVE BEEN ESTABLISHED BASED ON THE FOURTH UNIVERSAL DEFINITIONS OF MYOCARDIALINFARCTION. THE UPPER REFERENCE LIMIT (URL) OF TROPONIN, DEFINED THE 99TH PERCENTILE OFcTnI DISTRIBUTION IN A REFERENCE POPULATION, HAS BEEN CONFIRMED THE DECISION THRESHOLDFOR [place] DIAGNOSIS. Performed By: #### C MREP ####[facility] Uegpodstcp[address] [place], [place] [address]Dr. Rosemarieashley Otilio CBC AUTO DIFFon 07-30-2022 BASO # 0.0 103/ul Normal 0.0-0.1 [facility] Comment on above: Performed By: #### C BC ####[facility] Rznmmmcmjy26[address] [place] [id number]. Nahed Yañez Basophils/100 WBC (Bld) 0.1 % Critically low 0.2-2.0 [facility] Comment on above: Performed By: #### C BC ####[facility] Suwfanswgo[address] [place] [id number]. Nahed Yañez EO # 0.0 103/ul Normal 0.0-0.7 [facility] Comment on above: Performed By: #### C BC ####[facility] Ufhcpgyqum13[address] [place] [id number]. Nahed Yañez Eosinophils/100 WBC (Bld) 0.0 % Critically low 0.9-7.0 [facility] Comment on above: Performed By: #### C BC ####[facility] Jdrmbwyndq[address] [place] [address]Dr. Nahed Yañez Erythrocyte distribution width (RBC) [Ratio] 14.4 % Normal 11.0-15.0 [facility] Comment on above: Performed By: #### C BC ####[facility] Craqucitjb[address] [place], [place] [address]Dr. Nahed Yañez Hematocrit (Bld) [Volume fraction] 37.7 % Normal 36.0-48.0 [facility] Comment on above: Performed By: #### C BC ####[facility] Gumaxkhkml[address] [place], [place] [address]Dr. Nahed Yañez Hemoglobin (Bld) [Mass/Vol] 12.1 g/dL Normal 12.0-16.0 [facility] Comment on above: Performed By: #### C BC ####[facility] Hacjjxowxo[address] [place], [place] [address]Dr. Nahed Yañez IG # 0.07 10e3/ul Critically high 0.00-0.03 [facility] Comment on above: Performed By: #### C BC ####[facility] Rsicqiyrdj05[address] [place], [place] [address]Dr. Nahed Yañez IG % 0.5 % Normal 0.0-0.5 [facility] Comment on above: Performed By: #### C BC ####[facility] Xyyerpqugt17[address] [place], [place] [address]Dr. Rosemarieashley Yañez LYMPH # 1.0 103/ul Critically low 1.2-3.[address] [facility] Comment on above: Performed By: #### C BC ####[facility] Smcmmqlqkp4[address] [place] [id number]. Nahed Yañez Lymphocytes/100 WBC (Bld) 7.6 % Critically low 20.5-60.0 [facility] Comment on above: Performed By: #### C BC ####[facility] Asxffpwses5[address] [place] [id number]. Nahed Yañez MANUAL DIFF REQ NO Normal [facility] Comment on above: Performed By: #### C BC ####[facility] Qlelyubimu4711 [place] [id number]. Nahed Yañez MCH (RBC) [Entitic mass] 28.8 pg Normal 26.7-34.0 [facility] Comment on above: Performed By: #### C BC ####[facility] Rimgzjrinf[address] [place] [address]Dr. Nahed Yañez MCHC (RBC) [Mass/Vol] 32.1 g/dL Normal 29.9-35.2 [facility] Comment on above: Performed By: #### C BC ####[facility] Olmuzejsem3636 [place] [id number]. Nahed Yañez MCV (RBC) [Entitic vol] 89.8 fL Normal 81.0-99.0 [facility] Comment on above: Performed By: #### C BC ####[facility] Cecoyagqhw2883 [place] [id number]. Nahed Yañez MONO # 0.2 103/ul Critically low 0.3-0.[address] [facility] Comment on above: Performed By: #### C BC ####[facility] Ywtrojjdjw6540 [place] [address]Dr. Nahed Yañez Monocytes/100 WBC (Bld) 1.5 % Critically low 1.7-12.0 [facility] Comment on above: Performed By: #### C BC ####[facility] Axeqnzdzuo8367 [place] [id number]. Nahed Yañez NEUT # 11.7 103/ul Critically high 1.4-6.5 [facility] Comment on above: Performed By: #### C BC ####[facility] Lxdevcczyn6167 [place] [id number]. Nahed Yañez Neutrophils/100 WBC (Bld) 90.3 % Critically high 43.0-75.0 [facility] Comment on above: Performed By: #### C BC ####[facility] Fafvjhgwyh00[address] [place] [phone]. Nahed Yañez Platelet mean volume (Bld) [Entitic vol] 9.9 fL Normal 9.5-13.5 [facility] Comment on above: Performed By: #### C BC ####[facility] Brgytjmabu75[address] [place] [phone]. Nahed Yañez PLT 319 103/ul Normal 150-450 [facility] Comment on above: Performed By: #### C BC ####[facility] Zatdksinyu7[address] [place], [place] [address]Dr. Nahed Yañez RBC 4.20 106/ul Normal 4.20-5.40 [facility] Comment on above: Performed By: #### C BC ####[facility] Appfyjityv3053 [place] [id number]. Nahed Yañez WBC 13.0 103/ul Critically high 4.0-11.0 [facility] Comment on above: Performed By: #### C BC ####[facility] Mhenukqkqs0674 [place] [phone]. Nahed Yañez CULTURE BLOODon 07-30-2022 Microscopic examination of blood, culture Culture Observations: NO GROWTH AT 5 DAYS. Normal [facility] Comment on above: Performed By: #### B LDCX1 ####[facility] Dulhxnldot59[address] [place], [place] [address]Dr. Nahed Yañez CULTURE SPUTUMon 07-30-2022 CULTURE SPUTUM Culture Observations : NORMAL RESPIRATORY MIGUEL. Normal [facility] Comment on above: Performed By: #### S PUTCX ####[facility] Wupqxmqssn[address] [place], [place] [address]Dr. Nahed Yañez CULTURE URINEon 07-30-2022 CULTURE URINE Culture Observations : MODERATE GROWTH OF MIXED GENITAL MIGUEL. NO POTENTIAL PATHOGENS SEEN. Normal [facility] Comment on above: Performed By: #### U RCX ####[facility] Yxqhpovfsw[address] [place], [place] [address]Dr. Nahed Otilio Covid-19 PCR (CVDTB)on 07-12 SARS-CoV-2 (COVID-19) RNA MIRNA+probe Ql (Unsp spec) Not detected Normal NOT DETECTED [facility] Comment on above: Result Comment: When [...] for this test is supported by the [employer] Professor of Health and Human Service's declaration that [...] be used). Performed By: #### C VDTB ####[facility] Eriyypfayc[address] [place], [place] [address]Dr. Rosemarieashley Yañez ER URINE PROFILEon 3 Bilirubin Ql (U) Negative Normal NEGATIVE [facility] Comment on above: Performed By: #### YARELIS DOVE ####[facility] Dflgtxrngl[address] [place], [place] [address]Dr. Nahed Yañez Clarity (U) CLEAR Normal CLEAR [facility] Comment on above: Performed By: #### YARELIS DOVE ####[facility] Tfbfepfoyr[address] [place], [place] [address]Dr. Nahed Yañez Color (U) LT. YELLOW Normal YELLOW [facility] Comment on above: Performed By: #### YARELIS DOVE ####[facility] Zbtqabssew[address] [place] [address]Dr. Nahed AGEED A micrscopic examination will be performed if indicated. Normal [facility] Comment on above: Performed By: #### YARELIS DOVE ####[facility] Vgalzuvcsz8[address] [place] [address]Dr. Nahed Yañez Glucose Ql (U) 500 mg/dl Abnormal NEGATIVE [facility] Comment on above: Performed By: #### YARELIS DOVE ####[facility] Kwgxwlerrm[address] [place] [address]Dr. Nahed Yañez Hemoglobin Ql (U) Negative Normal NEGATIVE The [facility] Comment on above: Performed By: #### YARELIS DOVE ####[facility] Ruoqkflbcz[address] [place], [place] [address]Dr. Nahed Yañez Ketones Ql (U) Negative Normal NEGATIVE [facility] Comment on above: Performed By: #### YARELIS DOVE ####[facility] Vjokfekjqj61[address] [place], [place] [address]Dr. Nahed Yañez LEUKOCYTES TRACE Abnormal NEGATIVE [facility] Comment on above: Performed By: #### YARELIS DOVE ####[facility] Zepbqpxonh67[address] [place], [place] [address]Dr. Nahed Yañez Nitrite Ql (U) Negative Normal NEGATIVE [facility] Comment on above: Performed By: #### YARELIS DOVE ####[facility] Snznpkijvg[address]67[address] [place], [place] [address]Dr. Nahed Yañez pH (U) 6.0 [pH] Normal 5-9 [facility] Comment on above: Performed By: #### YARELIS DOVE ####[facility] Uaxfbibmsa[address] [place], [place] [address]Dr. Nahed Yañez SPEC GRAVITY >=1.030 Abnormal 1.005-<=1.02 5 [facility] Comment on above: Performed By: #### YARELIS DOVE ####[facility] Spjdwlkrfh[address] [place], [place] [address]Dr. Naehd Yañez UA PROTEIN Negative Normal NEGATIVE/ TRACE [facility] Comment on above: Performed By: #### YARELIS DOVE ####[facility] Essavcryut[address] [place], [place] [address]Dr. Nahed Yañez UR MICRO IND INDICATED Normal [facility] Comment on above: Performed By: #### YARELIS DOVE ####[facility] Wdbphzzzef6[address] [place], [place] [address]Dr. Nahed Yañez Urobilinogen Qn (U) 0.2 {Alem'U}/dL Normal 0.2 - 1. 0 [facility] Comment on above: Performed By: #### YARELIS DOVE ####[facility] Sepmiwnqle8019[address] [place], [place] [address]Dr. Nahed Yañez INFLUENZA A AND B AGon 07-30 INFLUANEGH SEE BELOW Normal [facility] Comment on above: Result Comment: Nega tive for Flu A protein angiten. Infection due to Flu A cannot be ruled out. Flu A angiten in the sample may be below the detection limit of the test. Performed By: #### I NFLUAB ####[facility] Xzlfyixqes[address] [place], [place] [address]Dr. Nahed Yañez INFLUBNEGH SEE BELOW Normal [facility] Comment on above: Result Comment: Nega tive for Flu B protein antigen. Infection due to Flu B cannot be ruled out. Flu B antigen in the sample may be below the detection limit of the test. Performed By: #### I NFLUAB ####[facility] Npxwaujvlt0[address] [place], [place] [address]Dr. Rosemarieashley Yañez INFLUENZA A AG Negative Normal NEGATIVE SEE COMMENT [facility] Comment on above: Performed By: #### I NFLUAB ####[facility] Tjxgbkbzey1042[address] [place], [place] [address]Dr. Nahed Yañez INFLUENZA B AG Negative Normal NEGATIVE SEE COMMENT [facility] Comment on above: Performed By: #### I NFLUAB ####[facility] Uesucmhjsu4[address] [place], [place] [address]Dr. Nahed Yañez LACTATE/LACTIC ACIDon 2022 Lactate [Moles/Vol] 2.5 mmol/L Critically high 0.4-2.0 [facility] Comment on above: Performed By: #### L ACT ####[facility] Aefrgfweul8[address] [place] [address]Dr. Nahed Yañez Lactate [Moles/Vol] 3.3 mmol/L Critically high 0.4-2.0 [facility] Comment on above: Performed By: #### L ACT ####[facility] Ysrtsdibbk4[address] [place], [place] [address]Dr. Nahed Yañez Lactate [Moles/Vol] 2.7 mmol/L Critically high 0.4-2.0 [facility] Comment on above: Performed By: #### L ACT ####[facility] Mhusqatvcx2369[address] [place], [place] [address]Dr. Nahed Yañez Lactate [Moles/Vol] 2.8 mmol/L Critically high 0.4-2.0 [facility] Comment on above: Performed By: #### L ACT ####[facility] Cbepczooem[address] [place], [place] [address]Dr. Nahed Otilio MAGNESIUMon 07-30-2022 Magnesium [Mass/Vol] 1.9 mg/dL Normal 1.8-2.4 [facility] Comment on above: Performed By: #### M G, CMP ####[facility] Mirptsalbs[address] [place], [place] [address]Dr. Nahed Yañez POINT OF CARE GLUCOSEon 07-12 Glucose [Mass/Vol] 220 mg/dL Critically high 74-106 [facility] Comment on above: Performed By: #### P OCGLUC ####[facility] Elkthovqdw[address] [place], [place] [address]Dr. Rosemarieashley Yañez Glucose [Mass/Vol] 162 mg/dL Critically high 74-106 [facility] Comment on above: Result Comment: Kaycee deonte Meter Performed By: #### P OCGLUC ####[facility] Murjqdpjvl60[address] [place], [place] [address]Dr. Nahed Yañez PROF 14(COMP METB)on 03-19-2 023 Albumin [Mass/Vol] 2.9 g/dL Critically low 3.4-5.0 [facility] Comment on above: Performed By: #### Pablo Moore, CMP ####[facility] Bxjquurqiy56[address] [place] [address]Dr. Nahed Yañez Albumin/Globulin [Mass ratio] 0.8 {ratio} Normal [facility] Comment on above: Performed By: #### Pablo Moore, CMP ####[facility] Lebzghbcsv56[address] [place] [address]Dr. Nahed Yañez ALP [Catalytic activity/Vol] 94 U/L Normal 46-116 [facility] Comment on above: Performed By: #### Pablo Moore, CMP ####[facility] Qhcvrntnij5566[address] [place], [place] [address]Dr. Nahed Yañez ALT [Catalytic activity/Vol] 22 U/L Normal 14-59 [facility] Comment on above: Performed By: #### Pablo Moore, CMP ####[facility] Eligvevuuy6837 [place] [address]Dr. Nahed Yañez Anion gap [Moles/Vol] 12.4 mmol/L Normal [facility] Comment on above: Performed By: #### Pablo Moore, CMP ####[facility] Yasjuzkrtw6524[address] [place], [place] [address]Dr. Nahed Yañez AST [Catalytic activity/Vol] 18 U/L Normal 15-37 [facility] Comment on above: Performed By: #### Pbalo Moore, CMP ####[facility] Kmfjwbcssm58[address] [place] [address]Dr. Nahed Yañez Bilirubin [Mass/Vol] 0.1 mg/dL Critically low 0.2-1.0 [facility] Comment on above: Performed By: #### Pablo Moore, CMP ####[facility] Krcvjaigtn[address] [place], [place] [address]Dr. Nahed Yañez Calcium [Mass/Vol] 8.9 mg/dL Normal 8.5-10.1 [facility] Comment on above: Performed By: #### Pablo Moore, CMP ####[facility] Bojfocnrzf[address] [place], [place] [address]Dr. Nahed Yañez Chloride [Moles/Vol] 99 mmol/L Normal 98-107 [facility] Comment on above: Performed By: #### Pablo Moore, CMP ####[facility] Kzgikffebe6622[address] [place], [place] [address]Dr. Nahed Yañez CO2 [Moles/Vol] 26.0 mmol/L Normal 21.0-32.0 [facility] Comment on above: Performed By: #### Pablo Moore, CMP ####[facility] Rlfxgfstkd264[address] [place], [place] [address]Dr. Nahed Otilio Creatinine [Mass/Vol] 1.16 mg/dL Critically high 0.55-1.02 [facility] Comment on above: Performed By: #### Pablo Moore, CMP ####[facility] Ndibqbgzsw[address] [place], [place] [address]Dr. Nahed Otilio EGFR-AF MOSOTHO 58 mL/min/1.73m2 Critically low >=60 [facility] Comment on above: Performed By: #### Pablo Moore, CMP ####[facility] Jjkcalpbdf7406[address] [place], [place] [address]Dr. Nahed Otilio EGFR-NON AF MOSOTHO 47 mL/min/1.73m2 Critically low >=60 [facility] Comment on above: Performed By: #### Pablo Moore, CMP ####[facility] Iwwmamprfi9918[address] [place], [place] [address]Dr. Rosemarieashley Yañez Globulin (S) [Mass/Vol] 3.7 g/dL Normal [facility] Comment on above: Performed By: #### Pablo Moore, CMP ####[facility] Nzuaasadkd4036[address] [place], [place] [address]Dr. Rosemarieashley Otilio Glucose [Mass/Vol] 267 mg/dL Critically high 74-106 [facility] Comment on above: Performed By: #### Pablo Moore, CMP ####[facility] Fyxfhaszon1636[address] [place], [place] [address]Dr. Nahed Yañez Potassium [Moles/Vol] 4.4 mmol/L Normal 3.5-5.1 [facility] Comment on above: Performed By: #### Pablo Moore, CMP ####[facility] Qsdztyaibn49[address] [place], [place] [address]Dr. Rosemarieashley Yañez Protein [Mass/Vol] 6.6 g/dL Normal 6.4-8.2 The [facility] Comment on above: Performed By: #### M Teresa, CMP ####[facility] Ciupebbtcj4[address] [place], [place] [address]Dr. Nahed Yañez Sodium [Moles/Vol] 133 mmol/L Critically low 136-145 [facility] Comment on above: Performed By: #### M Teresa, CMP ####[facility] Fvqflfapux1842[address] [place], [place] [address]Dr. Nahed Yañez Urea nitrogen [Mass/Vol] 33.0 mg/dL Critically high 7.0-18.0 [facility] Comment on above: Performed By: #### Pablo Moore, CMP ####[facility] Skslnpmzgj0867[address] [place], [place] [address]Dr. Nahed Yañez Urea nitrogen/Creatinine [Mass ratio] 28.4 mg/mg Normal [facility] Comment on above: Performed By: #### Pablo Moore, CMP ####[facility] Atgfcvfxbk4961[address] [place], [place] [address]Dr. Nahed Yañez SPUTUM GRAM STAINon 07-31-19 COMMENTS Normal [facility] Comment on above: Performed By: #### S PUTGS ####[facility] Gnrlpewasw7[address] [place], [place] [address]Dr. Nahed Yañez DIPHTHEROIDS Normal [facility] Comment on above: Performed By: #### S PUTGS ####[facility] Rcbvupmxwo[address] [place], [place] [address]Dr. Nahed Yañez EPITHELIALS <25 Normal [facility] Comment on above: Performed By: #### S PUTGS ####[facility] Mloufcuqhk39[address] [place], [place] [address]Dr. Nahed Yañez FUNGAL ELEMENTS Normal [facility] Comment on above: Performed By: #### S PUTGS ####[facility] Qzqlgcczur4563[address] [place], [place] [address]Dr. Nahed Yañez GRAM NEG BACILLI Normal [facility] Comment on above: Performed By: #### S PUTGS ####[facility] Nuldldkblo4[address] [place] [address]Dr. Nahed Yañez GRAM NEG DIPPLOCOCCI Normal [facility] Comment on above: Performed By: #### S PUTGS ####[facility] Zopvmrqyib67[address] [place] [address]Dr. Nahed Yañez GRAM POS BACILLI FEW Normal [facility] Comment on above: Performed By: #### S PUTGS ####[facility] Ccolgiwews34[address] [place] [address]Dr. Nahed Yañez GRAM POSITIVE COCCI FEW Normal [facility] Comment on above: Performed By: #### S PUTGS ####[facility] Ishplyyrui[address] [place], [place] [address]Dr. Nahed Yañez WBC (Bld) [#/Vol] 10*3/uL Normal [facility] Comment on above: Performed By: #### S PUTGS ####[facility] Oagvvgntaa2[address] [place], [place] [address]Dr. Nahed Yañez URINE MICROSCOPIC ONLYon BACTERIA SMALL Abnormal NONE SEEN [facility] Comment on above: Performed By: #### YARELIS DOVE ####[facility] Hwagdesszs[address] [place], [place] [address]Dr. Nahed Yañez Bacteria identified Cx Nom (U) INDICATED Normal [facility] Comment on above: Performed By: #### YARELIS DOVE ####[facility] Amhdcowzlm01[address] [place], [place] [address]Dr. Nahed Yañez CAST NONE SEEN Normal NONE SEEN [facility] Comment on above: Performed By: #### NUNU DOVERO ####[facility] Bqnkwjzzsv93[address] [place], [place] [address]Dr. Nahed Yañez Crystals LM Nom (Urine sed) NONE SEEN Normal NONE SEEN [facility] Comment on above: Performed By: #### NUNU DOVERO ####[facility] Lgrlamhmwb[address] [place] [address]Dr. Nahed Yañez Epithelial cells LM Ql (Urine sed) FEW Abnormal NONE SEEN /RARE [facility] Comment on above: Performed By: #### Isidoro ALCARAZ UMICRO ####[facility] Avrosdiywr[address] [place] [address]Dr. Nahed Yañez MUCOUS TRACE Abnormal NONE SEEN [facility] Comment on above: Performed By: #### NUNU DOVERO ####[facility] Qntqutqknf9997 [place] [id number]. Nahed Yañez RBC 0-2 Normal 0-2 [facility] Comment on above: Performed By: #### NUNU DOVERO ####[facility] Spvjynipii14[address] [place] [address]Dr. Nahed Yañez WBC 0-2 Abnormal NONE SEEN [facility] Comment on above: Performed By: #### NUNU DOVERO ####[facility] Pdiepipihu39[address] [place] [address]Dr. Nahed Yañez XR CHEST 1 Von 07-30-2022 XR CHEST 1 V Normal [facility] CARDIAC FRANCISCO ADMITon 023 CK [Catalytic activity/Vol] 59 U/L Normal 26-192 [facility] Comment on above: Performed By: #### BLADIMIR SINGH ####[facility] Oqpizbavai[address] [place], [place] [address]Dr. Nahed Yañez CK.MB [Mass/Vol] 0.59 ng/mL Normal <=3.60 [facility] Comment on above: Performed By: #### BLADIMIR SINGH ####[facility] Papyevupsg[address] [place], [place] [address]Dr. Nahed Otilio HSTROP 40.7 pg/mL Normal 4.0-51.3 [facility] Comment on above: Result Comment: CUT- OFF POINTS HAVE BEEN ESTABLISHED BASED ON THE FOURTH UNIVERSAL DEFINITIONS OF MYOCARDIALINFARCTION. THE UPPER REFERENCE LIMIT (URL) OF TROPONIN, DEFINED THE 99TH PERCENTILE OFcTnI DISTRIBUTION IN A REFERENCE POPULATION, HAS BEEN CONFIRMED THE DECISION THRESHOLDFOR [place] DIAGNOSIS. Performed By: #### BLADIMIR SINGH ####[facility] Bzpghcccii[address] [place], [place] [address]Dr. Nahed Yañez ANDRE 89 ng/mL Critically high 9-82 [facility] Comment on above: Performed By: #### C MADM, BMP ####[facility] Mytzdgrqnk[address] [place], [place] [address]Dr. Nahed Yañez CBC AUTO DIFFon 07-29-2022 BASO # 0.0 103/ul Normal 0.0-0.1 [facility] Comment on above: Performed By: #### C BC ####[facility] Wjpvaytkkq[address] [place], [place] [address]Dr. Nahed Yañez Basophils/100 WBC (Bld) 0.1 % Critically low 0.2-2.0 [facility] Comment on above: Performed By: #### C BC ####[facility] Siynxxbbgx[address] [place], [place] [address]Dr. Nahed Yañez EO # 0.0 103/ul Normal 0.0-0.7 [facility] Comment on above: Performed By: #### C BC ####[facility] Cqiikezeif[address] [place], [place] [address]Dr. Nahed Yañez Eosinophils/100 WBC (Bld) 0.0 % Critically low 0.9-7.0 [facility] Comment on above: Performed By: #### C BC ####[facility] Jphbspzyvg9[address] [place], [place] [address]Dr. Nahed Yañez Erythrocyte distribution width (RBC) [Ratio] 14.5 % Normal 11.0-15.0 [facility] Comment on above: Performed By: #### C BC ####[facility] Zmslwujypt85[address] [place], [place] [address]Dr. Nahed Yañez Hematocrit (Bld) [Volume fraction] 42.1 % Normal 36.0-48.0 [facility] Comment on above: Performed By: #### C BC ####[facility] Jvxnvprerm8[address] [place], [place] [address]Dr. Nahed Yañez Hemoglobin (Bld) [Mass/Vol] 13.4 g/dL Normal 12.0-16.0 [facility] Comment on above: Performed By: #### C BC ####[facility] Incqhyhfic[address] [place] [id number]. Nahed Otilio IG # 0.07 10e3/ul Critically high 0.00-0.[address] [facility] Comment on above: Performed By: #### C BC ####[facility] Xkoiczcwgi9[address] [place] [address]Dr. Nahed Yañez IG % 0.5 % Normal 0.0-0.5 [facility] Comment on above: Performed By: #### C BC ####[facility] Utkepokkvx9602 [place] [address]DrShaun Yañez LYMPH # 3.2 103/ul Normal 1.2-3.8 [facility] Comment on above: Performed By: #### C BC ####[facility] Oxmompddmt7[address] [place], [place] [address]Dr. Nahed Yañez Lymphocytes/100 WBC (Bld) 21.2 % Normal 20.5-60.0 [facility] Comment on above: Performed By: #### C BC ####[facility] Cjvljfyavn8[address] [place], [place] [address]DrShaun Rosemarieashley Yañez MANUAL DIFF REQ NO Normal [facility] Comment on above: Performed By: #### C BC ####[facility] Ywfodxaxqt5828 [place] [address]DrShaun Nahed Yañez MCH (RBC) [Entitic mass] 28.1 pg Normal 26.7-34.0 [facility] Comment on above: Performed By: #### C BC ####[facility] Dtdgzvqjnk3821 [place] [address]DrShaun Nahed Otilio MCHC (RBC) [Mass/Vol] 31.8 g/dL Normal 29.9-35.2 [facility] Comment on above: Performed By: #### C BC ####[facility] Ycmodymkxg3222 [place] [address]DrShaun Nahed Otilio MCV (RBC) [Entitic vol] 88.3 fL Normal 81.0-99.0 [facility] Comment on above: Performed By: #### C BC ####[facility] Gvmjhljhmz05[address] [place], [place] [address]Dr. Rosemarieashley Otilio MONO # 1.0 103/ul Critically high 0.3-0.8 [facility] Comment on above: Performed By: #### C BC ####[facility] Axmmtslkjt8281 [place] [address]Dr. Nahed Yañez Monocytes/100 WBC (Bld) 6.3 % Normal 1.7-12.0 [facility] Comment on above: Performed By: #### C BC ####[facility] Boyorfwypl3174 [place] [address]Dr. Nahed Yañez NEUT # 11.0 103/ul Critically high 1.4-6.5 [facility] Comment on above: Performed By: #### C BC ####[facility] Azgkscfqsu8740 [place] [address]Dr. Nahed Yañez Neutrophils/100 WBC (Bld) 71.9 % Normal 43.0-75.0 [facility] Comment on above: Performed By: #### C BC ####[facility] Ifgbjezrxf7785[address] [place], [place] [address]Dr. Nahed Otilio Platelet mean volume (Bld) [Entitic vol] 9.9 fL Normal 9.5-13.5 [facility] Comment on above: Performed By: #### C BC ####[facility] Pkkuusirew7509 [place] [address]Dr. Nahed Otilio PLT 385 103/ul Normal 150-450 [facility] Comment on above: Performed By: #### C BC ####[facility] Msrsmzrlvy33[address] [place], [place] [address]Dr. Nahed Otilio RBC 4.77 106/ul Normal 4.20-5.40 [facility] Comment on above: Performed By: #### C BC ####[facility] Ddtaphcdpb2807 [place] [address]Dr. Nahed Yañez WBC 15.3 103/ul Critically high 4.0-11.0 [facility] Comment on above: Performed By: #### C BC ####[facility] Aarfmwydpq6168 [place] [address]Dr. Nahed Yañez PROF CHEM 8 (BAS METB)on Anion gap [Moles/Vol] 13.4 mmol/L Normal [facility] Comment on above: Performed By: #### Isaebll AGRAWAL, BMP ####[facility] Lbxvmpsnmu9938 [place] [address]Dr. Nahed Yañez Calcium [Mass/Vol] 9.5 mg/dL Normal 8.5-10.1 [facility] Comment on above: Performed By: #### Isabell AGRAWAL, BMP ####[facility] Sfsnkapyji9623 [place] [address]Dr. Nahed Yañez Chloride [Moles/Vol] 101 mmol/L Normal 98-107 [facility] Comment on above: Performed By: #### Isabell AGRAWAL, BMP ####[facility] Flvnlibyzv1223 [place] [address]Dr. Nahed Yañez CO2 [Moles/Vol] 27.9 mmol/L Normal 21.0-32.0 [facility] Comment on above: Performed By: #### Isabell AGRAWAL, BMP ####[facility] Obtvyyqpvb1224 [place] [address]Dr. Nahed Yañez Creatinine [Mass/Vol] 0.91 mg/dL Normal 0.55-1.02 [facility] Comment on above: Performed By: #### Isabell AGRAWAL, BMP ####[facility] Sjbmhgfjvk8932 [place] [address]Dr. Nahed Yañez EGFR-AF MOSOTHO >60 Normal >=60 [facility] Comment on above: Performed By: #### Isabell AGRAWAL, BMP ####[facility] Zsumomzowk3515 [place] [id number]. Nahed Yañez EGFR-NON AF MOSOTHO >60 Normal >=60 [facility] Comment on above: Performed By: #### Isabell AGRAWAL, BMP ####[facility] Incfffyxlx4729 [place] [address]Dr. Nahed Yañez Glucose [Mass/Vol] 100 mg/dL Normal 74-106 [facility] Comment on above: Performed By: #### Isabell AGRAWAL, BMP ####[facility] Wsailsovxc8543 [place] [address]Dr. Nahed Yañez Potassium [Moles/Vol] 4.3 mmol/L Normal 3.5-5.1 [facility] Comment on above: Result Comment: samp le slightly hemolized Performed By: #### C NGHIA, BMP ####[facility] Pmhajbrwje035[address] [place], [place] [address]Dr. Nahed Yañez Sodium [Moles/Vol] 138 mmol/L Normal 136-145 [facility] Comment on above: Performed By: #### C NGHIA, BMP ####[facility] Mnkevzafnj0551[address] [place], [place] [address]Dr. Nahed Yañez Urea nitrogen [Mass/Vol] 34.0 mg/dL Critically high 7.0-18.0 [facility] Comment on above: Performed By: #### C NGHIA, BMP ####[facility] Wyhlqhftja5134[address] [place], [place] [address]Dr. Nahed Yañez Urea nitrogen/Creatinine [Mass ratio] 37.4 mg/mg Normal [facility] Comment on above: Performed By: #### C NGHIA, BMP ####[facility] Wybfiejsdk8538[address] [place], [place] [address]Dr. Nahed Yañez BNPon 07-28-2022 Natriuretic peptide B (Bld) [Mass/Vol] 249.0 pg/mL Normal <=900.0 [facility] Comment on above: Performed By: #### B BANKING SUPERVISOR ####[facility] Vyudftrycb3282[address] [place], [place] [address]Dr. Nahed Yañez CBC AUTO DIFFon 07-28-2022 BASO # 0.0 103/ul Normal 0.0-0.1 [facility] Comment on above: Performed By: #### C BC ####[facility] Ekeywwalrd187[address] [place], [place] [address]Dr. Nahed Yañez Basophils/100 WBC (Bld) 0.1 % Critically low 0.2-2.0 [facility] Comment on above: Performed By: #### C BC ####[facility] Ktgobzmdit7548[address] [place], [place] [address]Dr. Nahed Yañez EO # 0.0 103/ul Normal 0.0-0.7 [facility] Comment on above: Performed By: #### C BC ####[facility] Ioydvgupyp5127 [place] [address]Dr. Nahed Yañez Eosinophils/100 WBC (Bld) 0.0 % Critically low 0.9-7.0 [facility] Comment on above: Performed By: #### C BC ####[facility] Djnyldeyvb525[address] [place], [place] [address]Dr. Nahed Yañez Erythrocyte distribution width (RBC) [Ratio] 14.3 % Normal 11.0-15.0 [facility] Comment on above: Performed By: #### C BC ####[facility] Tedeastdxs2015[address] [place], [place] [address]Dr. Nahed Yañez Hematocrit (Bld) [Volume fraction] 38.7 % Normal 36.0-48.0 [facility] Comment on above: Performed By: #### C BC ####[facility] Egsttlolyn8139[address] [place], [place] [address]Dr. Nahed Yañez Hemoglobin (Bld) [Mass/Vol] 12.2 g/dL Normal 12.0-16.0 [facility] Comment on above: Performed By: #### C BC ####[facility] Rlfbxiuoqz605[address] [place], [place] [address]Dr. Nahed Yañez IG # 0.06 10e3/ul Critically high 0.00-0.03 [facility] Comment on above: Performed By: #### C BC ####[facility] Ugxoricjwz9894 [place] [address]Dr. Nahed Yañez IG % 0.5 % Normal 0.0-0.5 [facility] Comment on above: Performed By: #### C BC ####[facility] Gxcmpyphtq905[address] [place], [place] [address]DrShaun Nahed Yañez LYMPH # 0.7 103/ul Critically low 1.2-3.[address] [facility] Comment on above: Performed By: #### C BC ####[facility] X[address]cdvpfwv[address] [place] [address]. Nahed Yañez Lymphocytes/100 WBC (Bld) 5.7 % Critically low 20.5-60.0 [facility] Comment on above: Performed By: #### C BC ####[facility] Zetztehgmr3956 [place] [address]Dr. Nahed Yañez MANUAL DIFF REQ NO Normal [facility] Comment on above: Performed By: #### C BC ####[facility] Tjutkzbziy7883 [place] [address]Dr. Nahed Yañez MCH (RBC) [Entitic mass] 28.2 pg Normal 26.7-34.0 [facility] Comment on above: Performed By: #### C BC ####[facility] Iqjhsfmvwb350[address] [place], [place] [address]Dr. Nahed Yañez MCHC (RBC) [Mass/Vol] 31.5 g/dL Normal 29.9-35.2 [facility] Comment on above: Performed By: #### C BC ####[facility] Emwmkovgrp4801[address] [place], [place] [address]Dr. Nahed Yañez MCV (RBC) [Entitic vol] 89.6 fL Normal 81.0-99.0 [facility] Comment on above: Performed By: #### C BC ####[facility] Aeraemdmee78[address] [place], [place] [address]Dr. Nahed Yañez MONO # 0.3 103/ul Normal 0.3-0.8 [facility] Comment on above: Performed By: #### C BC ####[facility] Legpqslkue486810 [address] [place], [place] [address]Dr. Nahed Yañez Monocytes/100 WBC (Bld) 2.2 % Normal 1.7-12.0 [facility] Comment on above: Performed By: #### C BC ####[facility] Yldaikqugq2442[address] [place], [place] [address]Dr. Nahed Yañez NEUT # 11.1 103/ul Critically high 1.4-6.5 [facility] Comment on above: Performed By: #### C BC ####[facility] Ioihbxawhm6571[address] [place], [place] [address]Dr. Nahed Yañez Neutrophils/100 WBC (Bld) 91.5 % Critically high 43.0-75.0 [facility] Comment on above: Performed By: #### C BC ####[facility] Pbxwjlvzhw7788 [place] [address]Dr. Nahed Yañez Platelet mean volume (Bld) [Entitic vol] 10.1 fL Normal 9.5-13.5 [facility] Comment on above: Performed By: #### C BC ####[facility] Xczmcocfth9808 [place] [address]Dr. Nahed Yañez PLT 323 103/ul Normal 150-450 [facility] Comment on above: Performed By: #### C BC ####[facility] Gbrsufavxf4474 [place] [address]Dr. Nahed Yañez RBC 4.32 106/ul Normal 4.20-5.40 [facility] Comment on above: Performed By: #### C BC ####[facility] Zncyayhmmh9588[address] [place], [place] [address]Dr. Nahed Yañez WBC 12.1 103/ul Critically high 4.0-11.0 [facility] Comment on above: Performed By: #### C BC ####[facility] Mrykcqcwei8523[address] [place], [place] [address]Dr. Nahed Yañez POINT OF CARE GLUCOSEon 07-12 Glucose [Mass/Vol] 308 mg/dL Critically high 74-106 [facility] Comment on above: Performed By: #### P OCGLUC ####[facility] Hpynuhbcdb3190 [place] [address]Dr. Nahed Yañez Glucose [Mass/Vol] 341 mg/dL Critically high 74-106 [facility] Comment on above: Performed By: #### P OCGLUC ####[facility] Itoqpvlman584[address] [place], [place] [address]Dr. Nahed Yañez Glucose [Mass/Vol] 320 mg/dL Critically high 74-106 [facility] Comment on above: Performed By: #### P OCGLUC ####[facility] Zketlxbbpk697[address] [place], [place] [address]Dr. Nahed Yañez PROF 14(COMP METB)on 023 Albumin [Mass/Vol] 3.0 g/dL Critically low 3.4-5.0 [facility] Comment on above: Performed By: #### C MP ####[facility] Txneyiosse3435 [place] [address]Dr. Nahed Yañez Albumin/Globulin [Mass ratio] 0.7 {ratio} Normal [facility] Comment on above: Performed By: #### C MP ####[facility] Rcrjkoujvy4176 [place] [address]Dr. Nahed Yañez ALP [Catalytic activity/Vol] 93 U/L Normal 46-116 [facility] Comment on above: Performed By: #### C MP ####[facility] Roqaouitnl7572[address] [place], [place] [address]Dr. Nahed Yañez ALT [Catalytic activity/Vol] 15 U/L Normal 14-59 [facility] Comment on above: Performed By: #### C MP ####[facility] Esuawbiyin7988[address] [place], [place] [address]Dr. Nahed Yañez Anion gap [Moles/Vol] 13.0 mmol/L Normal [facility] Comment on above: Performed By: #### C MP ####[facility] Gnlqpuvymt9301[address] [place], [place] [address]Dr. Nahed Yañez AST [Catalytic activity/Vol] 11 U/L Critically low 15-37 [facility] Comment on above: Performed By: #### C MP ####[facility] Gaiuxuyoyq9061[address] [place], [place] [address]Dr. Nahed Yañez Bilirubin [Mass/Vol] 0.2 mg/dL Normal 0.2-1.0 [facility] Comment on above: Performed By: #### C MP ####[facility] Vhwngeuoqa1682[address] [place], [place] [address]Dr. Nahed Yañez Calcium [Mass/Vol] 9.6 mg/dL Normal 8.5-10.1 [facility] Comment on above: Performed By: #### C MP ####[facility] Obdzbcqbdm3592 [place] [address]Dr. Nahed Yañez Chloride [Moles/Vol] 100 mmol/L Normal 98-107 [facility] Comment on above: Performed By: #### C MP ####[facility] Nmvqwvakli1407 [place] [address]Dr. Nahed Yañez CO2 [Moles/Vol] 27.3 mmol/L Normal 21.0-32.0 [facility] Comment on above: Performed By: #### C MP ####[facility] Dxgwbgpeqk0026 [place] [address]Dr. Nahed Yañez Creatinine [Mass/Vol] 1.19 mg/dL Critically high 0.55-1.02 [facility] Comment on above: Performed By: #### C MP ####[facility] Yhgnlejnrs5348[address] [place], [place] [address]Dr. Nahed Yañez EGFR-AF MOSOTHO 56 mL/min/1.73m2 Critically low >=60 [facility] Comment on above: Performed By: #### C MP ####[facility] Osavlvjxxn0866[address] [place], [place] [address]Dr. Nahed Yañez EGFR-NON AF MOSOTHO 46 mL/min/1.73m2 Critically low >=60 [facility] Comment on above: Performed By: #### C MP ####[facility] Lcszmuxwgi469[address] [place], [place] [address]Dr. Nahed Otilio Globulin (S) [Mass/Vol] 4.1 g/dL Normal [facility] Comment on above: Performed By: #### C MP ####[facility] Udsyupqlzj2580 [place] [address]Dr. Nahed Otilio Glucose [Mass/Vol] 244 mg/dL Critically high 74-106 [facility] Comment on above: Performed By: #### C MP ####[facility] Mcnttbrfak0019[address] [place], [place] [address]Dr. Nahed Yañez Potassium [Moles/Vol] 4.3 mmol/L Normal 3.5-5.1 [facility] Comment on above: Performed By: #### C MP ####[facility] Mmepgoahgy5484 [place] [address]Dr. Nahed Yañez Protein [Mass/Vol] 7.1 g/dL Normal 6.4-8.2 [facility] Comment on above: Performed By: #### C MP ####[facility] Yuduvcteyb365[address] [place], [place] [address]Dr. Nahed Yañez Sodium [Moles/Vol] 136 mmol/L Normal 136-145 [facility] Comment on above: Performed By: #### C MP ####[facility] Ndbrwdyxml7125[address] [place], [place] [address]Dr. Nahed Otilio Urea nitrogen [Mass/Vol] 19.0 mg/dL Critically high 7.0-18.0 [facility] Comment on above: Performed By: #### C MP ####[facility] Tkmfgyuqqv4567[address] [place], [place] [address]Dr. Rosemarieashley Yañez Urea nitrogen/Creatinine [Mass ratio] 16.0 mg/mg Normal [facility] Comment on above: Performed By: #### C MP ####[facility] Zpabhmhwub3822[address] [place], [place] [address]Dr. Nahed Otilio BNPon 07-27-2022 Natriuretic peptide B (Bld) [Mass/Vol] 1093.0 pg/mL Critically high <=900.0 [facility] Comment on above: Performed By: #### B BANKING SUPERVISOR ####[facility] Uzkvwhhghh7405[address] [place], [place] [address]Dr. Nahed Otilio CBC AUTO DIFFon 07-27-2022 BASO # 0.1 103/ul Normal 0.0-0.1 [facility] Comment on above: Performed By: #### C BC ####[facility] Gsgirpzpaf0836[address] [place], [place] [address]Dr. Rosemarieashley Yañez Basophils/100 WBC (Bld) 0.3 % Normal 0.2-2.0 [facility] Comment on above: Performed By: #### C BC ####[facility] Bdzbnkfaaj40[address] [place], [place] [address]Dr. Nahed Yañez EO # 0.2 103/ul Normal 0.0-0.7 [facility] Comment on above: Performed By: #### C BC ####[facility] Cuwkdznucc5788 [place] [id number]. Nahed Yañez Eosinophils/100 WBC (Bld) 1.2 % Normal 0.9-7.0 [facility] Comment on above: Performed By: #### C BC ####[facility] Mhhjcgovhw3098 [place] [address]Dr. Nahed Yañez Erythrocyte distribution width (RBC) [Ratio] 14.1 % Normal 11.0-15.0 [facility] Comment on above: Performed By: #### C BC ####[facility] Ljydipmjyh8908[address] [place], [place] [address]Dr. Nahed Yañez Hematocrit (Bld) [Volume fraction] 42.2 % Normal 36.0-48.0 [facility] Comment on above: Performed By: #### C BC ####[facility] Idqarcthuo4413[address] [place], [place] [address]Dr. Nahed Yañez Hemoglobin (Bld) [Mass/Vol] 13.6 g/dL Normal 12.0-16.0 [facility] Comment on above: Performed By: #### C BC ####[facility] Cylympghct7823[address] [place], [place] [address]Dr. Nahed Yañez IG # 0.09 10e3/ul Critically high 0.00-0.03 [facility] Comment on above: Performed By: #### C BC ####[facility] Wxrndlwyzj2099[address] [place], [place] [address]Dr. Nahed Yañez IG % 0.5 % Normal 0.0-0.5 [facility] Comment on above: Performed By: #### C BC ####[facility] Tacgsifqny3952[address] [place], [place] [address]Dr. Nahed Yañez LYMPH # 1.8 103/ul Normal 1.2-3.8 [facility] Comment on above: Performed By: #### C BC ####[facility] Wvzoxqkjaa5804[address] [place], [place] [address]Dr. Nahed Yañez Lymphocytes/100 WBC (Bld) 10.2 % Critically low 20.5-60.0 [facility] Comment on above: Performed By: #### C BC ####[facility] Bkmndhxwqv2076 [place] [id number]. Nahed Yañez MANUAL DIFF REQ NO Normal [facility] Comment on above: Performed By: #### C BC ####[facility] Vuwnmayabw3031 [place] [address]Dr. Nahed Yañez MCH (RBC) [Entitic mass] 28.3 pg Normal 26.7-34.0 [facility] Comment on above: Performed By: #### C BC ####[facility] Tzslblhrjb3747 [place] [address]Dr. Nahed Yañez MCHC (RBC) [Mass/Vol] 32.2 g/dL Normal 29.9-35.2 [facility] Comment on above: Performed By: #### C BC ####[facility] Jgryonmoji[address] [place], [place] [address]Dr. Nahed Yañez MCV (RBC) [Entitic vol] 87.9 fL Normal 81.0-99.0 [facility] Comment on above: Performed By: #### C BC ####[facility] Jgkqvzddjm97[address] [place], [place] [address]Dr. Nahed Yañez MONO # 0.9 103/ul Critically high 0.3-0.8 [facility] Comment on above: Performed By: #### C BC ####[facility] Oyqwksrwdp50[address] [place], [place] [address]Dr. Nahed Yañez Monocytes/100 WBC (Bld) 5.2 % Normal 1.7-12.0 [facility] Comment on above: Performed By: #### C BC ####[facility] Ztvwntqzqq[address] [place], [place] [address]DrShaun Yañez NEUT # 14.4 103/ul Critically high 1.4-6.5 [facility] Comment on above: Performed By: #### C BC ####[facility] Bmocppspnk[address] [place], [place] [address]Dr. Nahed Yañez Neutrophils/100 WBC (Bld) 82.6 % Critically high 43.0-75.0 [facility] Comment on above: Performed By: #### C BC ####[facility] Mungomewep[address] [place], [place] [address]Lk. Nahed Yañez Platelet mean volume (Bld) [Entitic vol] 10.1 fL Normal 9.5-13.5 [facility] Comment on above: Performed By: #### C BC ####[facility] Pxbvvywyud1749 [place] [id number]. Nahed Yañez PLT 336 103/ul Normal 150-450 [facility] Comment on above: Performed By: #### C BC ####[facility] Ucmsymbxxn1804 [place], [place] [address]Ui. Nahed Yañez RBC 4.80 106/ul Normal 4.20-5.40 [facility] Comment on above: Performed By: #### C BC ####[facility] Jmrpluqgro5195 [place] [id number]. Nahed Yañez WBC 17.4 103/ul Critically high 4.0-11.0 [facility] Comment on above: Performed By: #### C BC ####[facility] Nzaxvelhos3489 [place], [place] [address]Vg. Nahed Yañez CTA CHEST WO W CONon 023 CTA CHEST WO W CON Normal [facility]on 07-12 SARS-CoV-2 (COVID-19) RNA MIRNA+probe Ql (Unsp spec) Not detected Normal NOT DETECTED [facility] Comment on above: Result Comment: When [...] for this test is supported by the [place] of Health and Human Service's declaration that [...] be used). Performed By: #### C VDTB ####[facility] [address] [place], [place] [address]Dr. Nahed Yañez ECHOCARDIO M/2D COMPLETEon 0 07-27-2022 ECHOCARDIO M/2D COMPLETE Normal [facility] ER URINE PROFILEon 3 Bilirubin Ql (U) Negative Normal NEGATIVE The [facility] Comment on above: Performed By: #### U MICRO, ERUR ####[facility] Letfvzktkq[address] [place], [place] [address]Dr. Nahed Yañez Clarity (U) CLEAR Normal CLEAR [facility] Comment on above: Performed By: #### U MICRO, ERUR ####[facility] Hudfsuqu[address] [place], [place] [address]Dr. Nahed Yañez Color (U) LT. YELLOW Normal YELLOW [facility] Comment on above: Performed By: #### U MICRO, ERUR ####[facility] Bvdwewxvun[address] [place], [place] [address]Dr. Nahed CORNELLAHD A micrscopic examination will be performed if indicated. Normal [facility] Comment on above: Performed By: #### U MICRO, ERUR ####[facility] Vhd[address] [place], [place] [address]Dr. Nahed Yañez Glucose Ql (U) >[address] [facility] Comment on above: Performed By: #### U MICRO, ERUR ####[facility] Bens[address] [place], [place] [address]Dr. Nahed Yañez Hemoglobin Ql (U) TRACE-LYSED Abnormal NEGATIVE [facility] Comment on above: Performed By: #### U MICRO, ERUR ####[facility] Trhpgxtmnq[address] [place], [place] [address]Dr. Nhaed Yañez Ketones Ql (U) TRACE Abnormal NEGATIVE [facility] Comment on above: Performed By: #### U MICRO, ERUR ####[facility] [address]fs[address] [place] [address]Dr. Rosemarieashley Yañez LEUKOCYTES Negative Normal NEGATIVE [facility] Comment on above: Performed By: #### U MICRO, ERUR ####[facility] Bjorlees[address] [place] [address]Dr. Nahed Yañez Nitrite Ql (U) Negative Normal NEGATIVE [facility] Comment on above: Performed By: #### U MICRO, ERUR ####[facility] Pswqeyuash[address] [place] [address]Dr. Nahed Yañez pH (U) 7.0 [pH] Normal 5-9 [facility] Comment on above: Performed By: #### U MICRO, ERUR ####[facility] Sogikjmgpk[address] [place] [address]Dr. Nahed Yañez SPEC GRAVITY 1.020 Normal 1.005-<=1.02 5 [facility] Comment on above: Performed By: #### U MICRO, ERUR ####[facility] Owvmt[address]wyr[address] [place], [place] [address]Dr. Nahed Yañez UA PROTEIN Negative Normal NEGATIVE/ TRACE [facility] Comment on above: Performed By: #### U MICRO, ERUR ####[facility] T[address] [place], [place] [address]Dr. Nahed Yañez UR MICRO IND INDICATED Normal [facility] Comment on above: Performed By: #### U MICRO, ERUR ####[facility] Ersgltinof[address] [place] [address]Dr. Nahed Yañez Urobilinogen Qn (U) 0.2 {Alem'U}/dL Normal 0.2 - 1. 0 [facility] Comment on above: Performed By: #### U MICRO, ERUR ####[facility] Dttkxmyhcw[address] [place], [place] [address]Dr. Nahed Yañez LIPID PROFILEon 07-27-2022 CHOL-HDL RATIO NORM SEE BELOW Normal [facility] Comment on above: Result Comment: 3.3 - 4.4 LOW RISK 4.4 - 7.1 AVERAGE RISK 7.1 - 11.0 MODERATE RISK >11.0 HIGH RISK Performed By: #### M G, LIPID ####[facility] A[address] [place], [place] [address]Fr. Rosemarieashley Yañez Cholesterol [Mass/Vol] 181 mg/dL Normal <=200 [facility] Comment on above: Performed By: #### M G, LIPID ####[facility] Mkgfzshmez0514 [place], [place] [address]Ux. Nahed Yañez Cholesterol in HDL [Mass/Vol] 87 mg/dL Critically high 40-60 [facility] Comment on above: Performed By: #### Pablo Moore, LIPID ####[facility] B[address]eshwk[address] [place] [id number]. Nahed Yañez Cholesterol in LDL [Mass/Vol] 78.6 mg/dL Normal [facility] Comment on above: Performed By: #### Pablo Moore, LIPID ####[facility] Wkcbshdjct4121 [place] [id number]. Nahed Yañez Cholesterol.total/Chol esterol in HDL [Mass ratio] 2.1 {ratio} Normal [facility] Comment on above: Performed By: #### Pablo Moore, LIPID ####[facility] Ddjxykvmqh73[address] [place] [id number]. Nahed Yañez HDL NORMAL > or = 60 mg/dl - LO W CARDIOVASCULAR RISK <40 mg/dl - HIGH CARDIOVASCULAR RISK Normal [facility] Comment on above: Performed By: #### Pablo Moore, LIPID ####[facility] Owseajqpcc[address]62 [place] [id number]. Nahed Yañez LDL CALC NORMAL SEE BELOW Normal [facility] Comment on above: Result Comment: <100 mg/dl OPTIMAL 100 - 129 mg/dl NEAR OR ABOVE OPTIMAL 130 - 159 mg/dl BORDERLINE HIGH 160 - 189 mg/dl HIGH >190 mg/dl VERY HIGH Performed By: #### Pablo G, LIPID ####[facility] Vuzowxlodr[address] [place] [id number]. Nahed Yañez Triglyceride [Mass/Vol] 77 mg/dL Normal <=150 [facility] Comment on above: Performed By: #### Pablo Moore, LIPID ####[facility] Qcccmpmkei[address]41 [place] [address]Dr. Nahed Yañez VLDL CALC 15.4 mg/dL Normal [facility] Comment on above: Performed By: #### M G, LIPID ####[facility] Mtrygajpic3666 [place] [address]Dr. Nahed Yañez MAGNESIUMon 07-27-2022 Magnesium [Mass/Vol] 1.7 mg/dL Critically low 1.8-2.4 [facility] Comment on above: Performed By: #### M G, LIPID ####[facility] Pclufa[address] [place], [place] [address]Dr. Nahed Yañez POINT OF CARE GLUCOSEon 07-12 Glucose [Mass/Vol] 276 mg/dL Critically high 74-106 [facility] Comment on above: Performed By: #### P OCGLUC ####[facility] Tdkxwcevwe[address] [place], [place] [address]Dr. Nahed Yañez Glucose [Mass/Vol] 143 mg/dL Critically high 74-106 [facility] Comment on above: Performed By: #### P OCGLUC ####[facility] Tpxtpyxgvb[address] [place], [place] [address]Dr. Nahed Yañez Glucose [Mass/Vol] 117 mg/dL Critically high 74-106 [facility] Comment on above: Performed By: #### P OCGLUC ####[facility] Lzonjmucfj[address]23 [place] [address]Dr. Nahed Yañez PROF CHEM 8 (BAS METB)on Anion gap [Moles/Vol] 11.1 mmol/L Normal [facility] Comment on above: Performed By: #### B MP, HSTROPN ####[facility] Iafbtyyqbn0[address] [place], [place] [address]Dr. Rosemarieashley Yañez Calcium [Mass/Vol] 9.6 mg/dL Normal 8.5-10.1 [facility] Comment on above: Performed By: #### B MP, HSTROPN ####[facility] Lpllztpuff[address] [place] [address]Dr. Nahed Yañez Chloride [Moles/Vol] 99 mmol/L Normal 98-107 [facility] Comment on above: Performed By: #### B RENZO, HSTROPN ####[facility] Pvkymbovab[address] [place] [address]Dr. Nahed Yañez CO2 [Moles/Vol] 27.8 mmol/L Normal 21.0-32.0 [facility] Comment on above: Performed By: #### B RENZO, HSTROPN ####[facility] Ycgjzgiveq[address] [place], [place] [address]Dr. Nahed Yañez Creatinine [Mass/Vol] 0.90 mg/dL Normal 0.55-1.02 [facility] Comment on above: Performed By: #### B RENZO, HSTROPN ####[facility] Ozkqti[address]cjq[address] [place], [place] [address]Dr. Nahed Yañez EGFR-AF MOSOTHO >60 Normal >=60 [facility] Comment on above: Performed By: #### Mery MULLER, HSTROPN ####[facility] Bh[address]xfxqszr[address] [place], [place] [address]Dr. Nahed Yañez EGFR-NON AF MOSOTHO >60 Normal >=60 [facility] Comment on above: Performed By: #### Mery MULLER, HSTROPN ####[facility] Pnxwvh[address]ix[address] [place], [place] [address]Dr. Nahed Yañez Glucose [Mass/Vol] 133 mg/dL Critically high 74-106 [facility] Comment on above: Performed By: #### Mery MULLER, HSTROPN ####[facility] X[address]ch[address] [place], [place] [address]Dr. Nahed Yañez Potassium [Moles/Vol] 3.9 mmol/L Normal 3.5-5.1 [facility] Comment on above: Performed By: #### Mery MULLER, HSTROPN ####[facility] [address]fs[address]rnn[address] [place], [place] [address]Dr. Nahed Yañez Sodium [Moles/Vol] 134 mmol/L Critically low 136-145 [facility] Comment on above: Performed By: #### B RENZO, HSTROPN ####[facility] [address] [place] [address]Gl. Nahed Yañez Urea nitrogen [Mass/Vol] 9.0 mg/dL Normal 7.0-18.0 [facility] Comment on above: Performed By: #### B MP, HSTROPN ####[facility] Nmmtsuxvqj2985 [place] [id number]. Nahed Yañez Urea nitrogen/Creatinine [Mass ratio] 10.0 mg/mg Normal [facility] Comment on above: Performed By: #### B MP, HSTROPN ####[facility] Mhxfdjudws8798 [place] [phone]. Nahed Yañez TROPONIN, HIGH SENSITIVITYon 07-27-2022 HSTROP 40.7 pg/mL Normal 4.0-51.3 [facility] Comment on above: Result Comment: CUT- OFF POINTS HAVE BEEN ESTABLISHED BASED ON THE FOURTH UNIVERSAL DEFINITIONS OF MYOCARDIALINFARCTION. THE UPPER REFERENCE LIMIT (URL) OF TROPONIN, DEFINED THE 99TH PERCENTILE OFcTnI DISTRIBUTION IN A REFERENCE POPULATION, HAS BEEN CONFIRMED THE DECISION THRESHOLDFOR [place] DIAGNOSIS. Performed By: #### H STROPN ####[facility] Zllrofpcvo14[address] [place] [phone]. Nahed Yañez HSTROP 42.5 pg/mL Normal 4.0-51.3 [facility] Comment on above: Result Comment: CUT- OFF POINTS HAVE BEEN ESTABLISHED BASED ON THE FOURTH UNIVERSAL DEFINITIONS OF MYOCARDIALINFARCTION. THE UPPER REFERENCE LIMIT (URL) OF TROPONIN, DEFINED THE 99TH PERCENTILE OFcTnI DISTRIBUTION IN A REFERENCE POPULATION, HAS BEEN CONFIRMED THE DECISION THRESHOLDFOR [place] DIAGNOSIS. Performed By: #### H STROPN ####[facility] W[address]rjthdtn13[address] [place] [phone]. Nahed Yañez HSTROP 50.8 pg/mL Normal 4.0-51.3 [facility] Comment on above: Result Comment: CUT- OFF POINTS HAVE BEEN ESTABLISHED BASED ON THE FOURTH UNIVERSAL DEFINITIONS OF MYOCARDIALINFARCTION. THE UPPER REFERENCE LIMIT (URL) OF TROPONIN, DEFINED THE 99TH PERCENTILE OFcTnI DISTRIBUTION IN A REFERENCE POPULATION, HAS BEEN CONFIRMED THE DECISION THRESHOLDFOR [place] DIAGNOSIS. Performed By: #### H STROPN ####[facility] Eqaamqxgjb6630 [place] [phone]. Nahed Yañez HSTROP 46.3 pg/mL Normal 4.0-51.3 [facility] Comment on above: Result Comment: CUT- OFF POINTS HAVE BEEN ESTABLISHED BASED ON THE FOURTH UNIVERSAL DEFINITIONS OF MYOCARDIALINFARCTION. THE UPPER REFERENCE LIMIT (URL) OF TROPONIN, DEFINED THE 99TH PERCENTILE OFcTnI DISTRIBUTION IN A REFERENCE POPULATION, HAS BEEN CONFIRMED THE DECISION THRESHOLDFOR [place] DIAGNOSIS. Performed By: #### H STROPN, TSH ####[facility] Eijiqyjyvn7[address] [place] [phone]. Nahed Yañez HSTROP 54.2 pg/mL Critically high 4.0-51.3 [facility] Comment on above: Result Comment: CUT- OFF POINTS HAVE BEEN ESTABLISHED BASED ON THE FOURTH UNIVERSAL DEFINITIONS OF MYOCARDIALINFARCTION. THE UPPER REFERENCE LIMIT (URL) OF TROPONIN, DEFINED THE 99TH PERCENTILE OFcTnI DISTRIBUTION IN A REFERENCE POPULATION, HAS BEEN CONFIRMED THE DECISION THRESHOLDFOR [place] DIAGNOSIS. Performed By: #### B MP, HSTROPN ####[facility] Sgkzttjzzf0[address] [place] [phone]. Nahed Yañez TSHon 07-27-2022 TSH 1.566 uIU/mL Normal 0.358-3.740 [facility] Comment on above: Performed By: #### H STROPN, TSH ####[facility] Szarhydtfy[address]70 [place] [phone]. Nahed Yañez URINE MICROSCOPIC ONLYon BACTERIA NONE SEEN Normal NONE SEEN [facility] Comment on above: Performed By: #### U MICRO, ERUR ####[facility] Bnickiztiz[address] [place] [phone]. Nahed Yañez Bacteria identified Cx Nom (U) NOT INDICATED Normal [facility] Comment on above: Performed By: #### U MICRO, ERUR ####[facility] Evrinspbuu9097 [place] [phone]. Nahed Yañez CAST NONE SEEN Normal NONE SEEN [facility] Comment on above: Performed By: #### U MICRO, ERUR ####[facility] Dflyiqdwev7365 [place] [address]Dr. Nahed Yañez Crystals LM Nom (Urine sed) NONE SEEN Normal NONE SEEN [facility] Comment on above: Performed By: #### U MICRO, ERUR ####[facility] Yrxudujrhq9110 [place] [address]Dr. Nahed Yañez Epithelial cells LM Ql (Urine sed) FEW Abnormal NONE SEEN /RARE [facility] Comment on above: Performed By: #### U MICRO, ERUR ####[facility] [address]trbdzhd[address] [place], [place] [address]Dr. Nahed Yañez MUCOUS NONE SEEN Normal NONE SEEN [facility] Comment on above: Performed By: #### U MICRO, ERUR ####[facility] Ouuwrbapvr[address] [place], [place] [address]Dr. Nahed Yañez RBC 0-2 Normal 0-2 [facility] Comment on above: Performed By: #### U MICRO, ERUR ####[facility] Wdvtdifbho[address] [place], [place] [address]Dr. Nahed Yañez WBC NONE SEEN Normal NONE SEEN [facility] Comment on above: Performed By: #### U MICRO, ERUR ####[facility] Azzzfgeqtq4[address] [place], [place] [address]Dr. Nahed Yañez XR CHEST 1 Von 07-27-2022 XR CHEST 1 V Normal [facility] INSULINon 05-09-2022 Insulin 21.1 uIU/mL Normal 2.6-24.9 [facility] Comment on above: Performed By: #### I NSULIN ####[facility] Tmsnqzbddw[address] [place], [place] [address]Dr. Nahed Yañez BNPon 05-08-2022 Natriuretic peptide B (Bld) [Mass/Vol] 58.0 pg/mL Normal <=900.0 [facility] Comment on above: Performed By: #### B BANKING SUPERVISOR, LIPID, T7, TSH, CMP ####[facility] Wzrrbwheou[address] [place] [address]Dr. Nahed Yañez CBC AUTO DIFFon 05-08-2022 BASO # 0.0 103/ul Normal 0.0-0.1 [facility] Comment on above: Performed By: #### C BC ####[facility] Fefuqioask2272 [place] [phone]. Nahed Yañez Basophils/100 WBC (Bld) 0.4 % Normal 0.2-2.0 [facility] Comment on above: Performed By: #### C BC ####[facility] Aqwdysppes[address] [place], [place] [address]Dr. Nahed Yañez EO # 0.3 103/ul Normal 0.0-0.7 [facility] Comment on above: Performed By: #### C BC ####[facility] Udelctwlkw[address] [place], [place] [address]Dr. Nahed Yañez Eosinophils/100 WBC (Bld) 4.2 % Normal 0.9-7.0 [facility] Comment on above: Performed By: #### C BC ####[facility] Ozeuqnauup[address] [place], [place] [address]Dr. Nahed Yañez Erythrocyte distribution width (RBC) [Ratio] 14.0 % Normal 11.0-15.0 [facility] Comment on above: Performed By: #### C BC ####[facility] R[address]chzrqe[address] [place], [place] [address]Dr. Nahed Yañez Hematocrit (Bld) [Volume fraction] 43.8 % Normal 36.0-48.0 [facility] Comment on above: Performed By: #### C BC ####[facility] R[address]vvisrg[address] [place], [place] [address]Dr. Nahed Yañez Hemoglobin (Bld) [Mass/Vol] 13.9 g/dL Normal 12.0-16.0 [facility] Comment on above: Performed By: #### C BC ####[facility] Bfkwnweimf[address] [place], [place] [address]Dr. Nahed Yañez IG # 0.01 10e3/ul Normal 0.00-0.03 [facility] Comment on above: Performed By: #### C BC ####[facility] Tfwsrwujua[address] [place], [place] [address]Dr. Nahed Yañez IG % 0.1 % Normal 0.0-0.5 [facility] Comment on above: Performed By: #### C BC ####[facility] Rtkmhdjnnd5240 [place] [phone]. Nahed Otilio LYMPH # 2.8 103/ul Normal 1.2-3.8 [facility] Comment on above: Performed By: #### C BC ####[facility] Xelzmooqxl8885 [place] [phone]. Nahed Yañez Lymphocytes/100 WBC (Bld) 37.6 % Normal 20.5-60.0 [facility] Comment on above: Performed By: #### C BC ####[facility] Urphatyfcp8402 [place] [phone]. Nahed Yañez MANUAL DIFF REQ NO Normal [facility] Comment on above: Performed By: #### C BC ####[facility] Rfkkibhkmw3248 [place] [phone]. Nahed Yañez MCH (RBC) [Entitic mass] 28.4 pg Normal 26.7-34.0 [facility] Comment on above: Performed By: #### C BC ####[facility] Zmxvzoqvzf6528 [place] [phone]. Rosemarieashley Yañez MCHC (RBC) [Mass/Vol] 31.7 g/dL Normal 29.9-35.2 [facility] Comment on above: Performed By: #### C BC ####[facility] Tlnlbakpii6436 [place] [phone]. Nahed Yañez MCV (RBC) [Entitic vol] 89.6 fL Normal 81.0-99.0 [facility] Comment on above: Performed By: #### C BC ####[facility] Diqegnuzva4344 [place] [id number]. Nahed Yañez MONO # 0.5 103/ul Normal 0.3-0.8 [facility] Comment on above: Performed By: #### C BC ####[facility] Tbpcgrpsah2483 [place] [phone]. Nahed Yañez Monocytes/100 WBC (Bld) 6.8 % Normal 1.7-12.0 [facility] Comment on above: Performed By: #### C BC ####[facility] Ljivajddas9480 [place] [id number]. Nahed Yañez NEUT # 3.7 103/ul Normal 1.4-6.5 [facility] Comment on above: Performed By: #### C BC ####[facility] Atocskgkqx9010 [place] [phone]. Nahed Yañez Neutrophils/100 WBC (Bld) 50.9 % Normal 43.0-75.0 [facility] Comment on above: Performed By: #### C BC ####[facility] Zkvonwweah6882 [place] [phone]. Nahed Yañez Platelet mean volume (Bld) [Entitic vol] 9.8 fL Normal 9.5-13.5 [facility] Comment on above: Performed By: #### C BC ####[facility] Oqyorxmotj6501 [place] [id number]. Nahed Yañez PLT 306 103/ul Normal 150-450 [facility] Comment on above: Performed By: #### C BC ####[facility] Hwqraykkub5595 [place] [id number]. Nahed Yañez RBC 4.89 106/ul Normal 4.20-5.40 [facility] Comment on above: Performed By: #### C BC ####[facility] Lhdvihxjno8556 [place] [id number]. Nahed Yañez WBC 7.3 103/ul Normal 4.0-11.0 [facility] Comment on above: Performed By: #### C BC ####[facility] Bhvclvppxc8960 [place] [id number]. Nahed Yañez FREE THYROXINE INDEX T7on FTI 2.92 Normal 1.30-4.50 [facility] Comment on above: Performed By: #### B BANKING SUPERVISOR, LIPID, T7, TSH, CMP ####[facility] Ypkzxqkcfm9309 [place] [id number]. Nahed Yañez T3U 34.0 % Normal 30.0-39.0 [facility] Comment on above: Performed By: #### B BANKING SUPERVISOR, LIPID, T7, TSH, CMP ####[facility] Fbdawoxxgn9528 [place] [address]Dr. Nahed Yaeñz T4 [Mass/Vol] 8.60 ug/dL Normal 4.80-13.90 [facility] Comment on above: Performed By: #### B BANKING SUPERVISOR, LIPID, T7, TSH, CMP ####[facility] Vozugnsqqa9[address] [place] [address]Dr. Nahed Yañez GLYCOHEMOGLOBIN A1Con 2021 ADA RECOMMENDATION SEE BELOW Normal [facility] Comment on above: Result Comment: ADA RECOMMENDED LIMIT 4.0 - 6.0 ADA THERAPEUTIC TARGET < 7.0 ACTION SUGGESTED > 7.0 Performed By: #### A 1C ####[facility] Hvkjlporxx[address] [place], [place] [address]Dr. Nahed Yañez Glucose [Mass/Vol] 146 mg/dL Normal [facility] Comment on above: Performed By: #### A 1C ####[facility] Mgqkfxnuyc[address] [place], [place] [address]Dr. Nahed Yañez HbA1c (Bld) [Mass fraction] 6.7 % Critically high 4.5-6.2 [facility] Comment on above: Performed By: #### A 1C ####[facility] Jqucphnsty7[address] [place] [address]Dr. Nahed Yañez IRONon 05-08-2022 Iron [Mass/Vol] 76.0 ug/dL Normal 50.0-170.0 [facility] Comment on above: Performed By: #### V ITAD, IRON ####[facility] Mqohjpjavu18[address] [place] [address]Dr. Nahed Yañez LIPID PROFILEon 05-08-2022 CHOL-HDL RATIO NORM SEE BELOW Normal [facility] Comment on above: Result Comment: 3.3 - 4.4 LOW RISK 4.4 - 7.1 AVERAGE RISK 7.1 - 11.0 MODERATE RISK >11.0 HIGH RISK Performed By: #### B BANKING SUPERVISOR, LIPID, T7, TSH, CMP ####[facility] Dqtiahyjwz3044 [place] [phone]. Nahed Yañez Cholesterol [Mass/Vol] 167 mg/dL Normal <=200 [facility] Comment on above: Performed By: #### B BANKING SUPERVISOR, LIPID, T7, TSH, CMP ####[facility] Jgriejeeec5583 [place] [phone]. Nahed Yañez Cholesterol in HDL [Mass/Vol] 63 mg/dL Critically high 40-60 [facility] Comment on above: Performed By: #### B BANKING SUPERVISOR, LIPID, T7, TSH, CMP ####[facility] Eqqoifjmmy[address] [place], [place] [id number]. Nahed Yañez Cholesterol in LDL [Mass/Vol] 72.6 mg/dL Normal [facility] Comment on above: Performed By: #### B BANKING SUPERVISOR, LIPID, T7, TSH, CMP ####[facility] [address]jehcuk[address] [place], [place] [address]Dr. Nahed Yañez Cholesterol.total/Chol esterol in HDL [Mass ratio] 2.7 {ratio} Normal [facility] Comment on above: Performed By: #### B BANKING SUPERVISOR, LIPID, T7, TSH, CMP ####[facility] Nbxyirnmex[address] [place], [place] [address]Dr. Nahed Yañez HDL NORMAL > or = 60 mg/dl - LO W CARDIOVASCULAR RISK <40 mg/dl - HIGH CARDIOVASCULAR RISK Normal [facility] Comment on above: Performed By: #### B BANKING SUPERVISOR, LIPID, T7, TSH, CMP ####[facility] [address]xzbheho[address] [place], [place] [address]Dr. Nahed Yañez LDL CALC NORMAL SEE BELOW Normal [facility] Comment on above: Result Comment: <100 mg/dl OPTIMAL 100 - 129 mg/dl NEAR OR ABOVE OPTIMAL 130 - 159 mg/dl BORDERLINE HIGH 160 - 189 mg/dl HIGH >190 mg/dl VERY HIGH Performed By: #### B BANKING SUPERVISOR, LIPID, T7, TSH, CMP ####[facility] [address]cxrdfsszo[address] [place], [place] [address]Dr. Nahed Yañez Triglyceride [Mass/Vol] 157 mg/dL Critically high <=150 [facility] Comment on above: Performed By: #### B BANKING SUPERVISOR, LIPID, T7, TSH, CMP ####[facility] Roqgetchwa[address]86 [place] [id number]. Nahed Yañez VLDL CALC 31.4 mg/dL Normal [facility] Comment on above: Performed By: #### B BANKING SUPERVISOR, LIPID, T7, TSH, CMP ####[facility] Gfjrwnjyiq[address] [place] [address]Dr. Nahed Yañez OCC BLD IMMUNO SCREENon 04-14 OCCULT BLOOD Negative Normal NEGATIVE [facility] Comment on above: Performed By: #### O BSCRN ####[facility] L[address]yrrlecvf[address] [place] [address]Dr. Nahed Yañez PROF 14(COMP METB)on 022 Albumin [Mass/Vol] 3.7 g/dL Normal 3.4-5.0 [facility] Comment on above: Performed By: #### B BANKING SUPERVISOR, LIPID, T7, TSH, CMP ####[facility] B[address]py[address] [place], [place] [address]Dr. Nahed Yañez Albumin/Globulin [Mass ratio] 0.9 {ratio} Normal [facility] Comment on above: Performed By: #### B BANKING SUPERVISOR, LIPID, T7, TSH, CMP ####[facility] Avbqtjmctm[address] [place], [place] [address]Dr. Nahed Yañez ALP [Catalytic activity/Vol] 99 U/L Normal 46-116 [facility] Comment on above: Performed By: #### B BANKING SUPERVISOR, LIPID, T7, TSH, CMP ####[facility] Rpqqruzuwh[address] [place] [address]Dr. Nahed Yañez ALT [Catalytic activity/Vol] 20 U/L Normal 14-59 [facility] Comment on above: Performed By: #### B BANKING SUPERVISOR, LIPID, T7, TSH, CMP ####[facility] Tppwmfouls[address] [place] [address]Dr. Nahed Yañez Anion gap [Moles/Vol] 10.6 mmol/L Normal [facility] Comment on above: Performed By: #### B BANKING SUPERVISOR, LIPID, T7, TSH, CMP ####[facility] Lngnrctxkr[address] [place] [address]Dr. Nahed Yañez AST [Catalytic activity/Vol] 29 U/L Normal 15-37 [facility] Comment on above: Performed By: #### B BANKING SUPERVISOR, LIPID, T7, TSH, CMP ####[facility] Gulafrrlwc[address] [place] [address]Dr. Nahed Yañez Bilirubin [Mass/Vol] 0.4 mg/dL Normal 0.2-1.0 [facility] Comment on above: Performed By: #### B BANKING SUPERVISOR, LIPID, T7, TSH, CMP ####[facility] Icecbntmog[address] [place], [place] [address]Dr. Nahed Yañez Calcium [Mass/Vol] 9.3 mg/dL Normal 8.5-10.1 [facility] Comment on above: Performed By: #### B BANKING SUPERVISOR, LIPID, T7, TSH, CMP ####[facility] Eeqygspzqg[address] [place], [place] [address]Dr. Nahed Yañez Chloride [Moles/Vol] 100 mmol/L Normal 98-107 [facility] Comment on above: Performed By: #### B BANKING SUPERVISOR, LIPID, T7, TSH, CMP ####[facility] Qvtnqjpvvc[address] [place], [place] [address]Dr. Nahed Yañez CO2 [Moles/Vol] 31.4 mmol/L Normal 21.0-32.0 The [facility] Comment on above: Performed By: #### B BANKING SUPERVISOR, LIPID, T7, TSH, CMP ####[facility] Qwffyxphwg[address] [place], [place] [address]Dr. Nahed Yañez Creatinine [Mass/Vol] 1.01 mg/dL Normal 0.55-1.02 [facility] Comment on above: Performed By: #### B BANKING SUPERVISOR, LIPID, T7, TSH, CMP ####[facility] Rarbmfesfq23[address] [place], [place] [address]Dr. Nahed Yañez EGFR-AF MOSOTHO >60 Normal >=60 The [facility] Comment on above: Performed By: #### B BANKING SUPERVISOR, LIPID, T7, TSH, CMP ####[facility] Tirgcfsprx[address] [place], [place] [address]Dr. Nahed Yañez EGFR-NON AF MOSOTHO 56 mL/min/1.73m2 Critically low >=60 [facility] Comment on above: Performed By: #### B BANKING SUPERVISOR, LIPID, T7, TSH, CMP ####[facility] Rgxpertyog[address] [place] [address]Dr. Nahed Yañez Globulin (S) [Mass/Vol] 3.9 g/dL Normal [facility] Comment on above: Performed By: #### B BANKING SUPERVISOR, LIPID, T7, TSH, CMP ####[facility] Jjviucksup[address] [place] [address]Dr. Nahed Yañez Glucose [Mass/Vol] 111 mg/dL Critically high 74-106 T [facility] Comment on above: Performed By: #### B BANKING SUPERVISOR, LIPID, T7, TSH, CMP ####[facility] Nqoawdpuvs[address] [place], [place] [address]Dr. Nahed Yañez Potassium [Moles/Vol] 4.0 mmol/L Normal 3.5-5.1 [facility] Comment on above: Performed By: #### B BANKING SUPERVISOR, LIPID, T7, TSH, CMP ####[facility] Nvohnnchqi[address] [place], [place] [address]Dr. Nahed Yañez Protein [Mass/Vol] 7.6 g/dL Normal 6.4-8.2 The [facility] Comment on above: Performed By: #### B BANKING SUPERVISOR, LIPID, T7, TSH, CMP ####[facility] Qilpvtjxxn[address] [place], [place] [address]Dr. Nahed Yañez Sodium [Moles/Vol] 138 mmol/L Normal 136-145 [facility] Comment on above: Performed By: #### B BANKING SUPERVISOR, LIPID, T7, TSH, CMP ####[facility] Yoojjjebld[address] [place], [place] [address]Dr. Nahed Yañez Urea nitrogen [Mass/Vol] 17.0 mg/dL Normal 7.0-18.0 [facility] Comment on above: Performed By: #### B BANKING SUPERVISOR, LIPID, T7, TSH, CMP ####[facility] Szafivpbjs[address] [place], [place] [address]Dr. Nahed Yañez Urea nitrogen/Creatinine [Mass ratio] 16.8 mg/mg Normal [facility] Comment on above: Performed By: #### B BANKING SUPERVISOR, LIPID, T7, TSH, CMP ####[facility] Paz[address]ltzsrs[address] [place] [id number]. Nahed Yañez TSHon 05-08-2022 TSH 2.835 uIU/mL Normal 0.358-3.740 [facility] Comment on above: Performed By: #### B BANKING SUPERVISOR, LIPID, T7, TSH, CMP ####[facility] Fmnswmfwjz48[address] [place] [id number]. Rosemarieashley Otilio VITAMIN D 25 OHon 05-08-2022 VIT D 25-OH 13.4 ng/mL Normal [facility] Comment on above: Performed By: #### V GRAEME, IRON ####[facility] Irnyoklyjg[address] [place] [address]Dr. Nahed Yañez VIT D RANGES SEE BELOW Normal [facility] Comment on above: Result Comment: <20 ng/mL Vit D deficient 20 - <30 ng/mL Vit D insufficient 30 - 100 ng/mL Vit D sufficient >100 ng/mL Potential Toxicity Performed By: #### Bianca BEDOLLA, IRON ####[facility] Dxahzhguic[address] [place] [address]Dr. Nahed Yañez CARDIAC FRANCISCO 3-6on 2 CK [Catalytic activity/Vol] 37 U/L Normal 26-192 [facility] Comment on above: Performed By: #### C MREP ####[facility] Yjfsfibuwf[address] [place], [place] [address]Dr. Nahed Yañez CK.MB [Mass/Vol] 0.79 ng/mL Normal <=3.60 The [facility] Comment on above: Performed By: #### C MREP ####[facility] Vggoupducd[address] [place] [address]Dr. Nahed Yañez HSTROP 55.3 pg/mL Critically high 4.0-51.3 The [facility] Comment on above: Result Comment: CUT- OFF POINTS HAVE BEEN ESTABLISHED BASED ON THE FOURTH UNIVERSAL DEFINITIONS OF MYOCARDIALINFARCTION. THE UPPER REFERENCE LIMIT (URL) OF TROPONIN, DEFINED THE 99TH PERCENTILE OFcTnI DISTRIBUTION IN A REFERENCE POPULATION, HAS BEEN CONFIRMED THE DECISION THRESHOLDFOR [place] DIAGNOSIS. Performed By: #### C MREP ####[facility] Wkyluqrctx2445 [place], [place] [address]Gt. Nahed Yañez CK [Catalytic activity/Vol] 49 U/L Normal 26-192 [facility] Comment on above: Performed By: #### C MREP ####[facility] Airshlzxoh8739 [place], [place] [address]Rr. Nahed Yañez CK.MB [Mass/Vol] 0.71 ng/mL Normal <=3.60 The [facility] Comment on above: Performed By: #### C MREP ####[facility] Jfilkyahyq8455 [place], [place] [address]Lr. Nahed Yañez HSTROP 62.6 pg/mL Critically high 4.0-51.3 The [facility] Comment on above: Result Comment: CUT- OFF POINTS HAVE BEEN ESTABLISHED BASED ON THE FOURTH UNIVERSAL DEFINITIONS OF MYOCARDIALINFARCTION. THE UPPER REFERENCE LIMIT (URL) OF TROPONIN, DEFINED THE 99TH PERCENTILE OFcTnI DISTRIBUTION IN A REFERENCE POPULATION, HAS BEEN CONFIRMED THE DECISION THRESHOLDFOR [place] DIAGNOSIS. Performed By: #### C MREP ####[facility] Csjtyuvvjs0910 [place], [place] [address]Vh. Nahed Yañez [facility]13 SARS-CoV-2 (COVID-19) RNA MIRNA+probe Ql (Unsp spec) Not detected Normal NOT DETECTED [facility] Comment on above: Result Comment: When [...] for this test is supported by the [place] of Health and Human Service's declaration that [...] longer be used). Performed By: #### [facility] ####[facility] [address]ivkheuire[address] [place] [id number]. Nahed Yañez ECHO LIMITED STUDYon 022 ECHO LIMITED STUDY Normal The [facility] GLYCOHEMOGLOBIN A1Con 2021 ADA RECOMMENDATION SEE BELOW Normal The [facility] Comment on above: Result Comment: ADA RECOMMENDED LIMIT 4.0 - 6.0 ADA THERAPEUTIC TARGET < 7.0 ACTION SUGGESTED > 7.0 Performed By: #### A 1C ####[facility] F[address]xfzoc[address] [place], [place] [address]Dr. Nahed Yañez Glucose [Mass/Vol] 140 mg/dL Normal [facility] Comment on above: Performed By: #### A 1C ####[facility] Hpvskdghzs[address] [place], [place] [address]Dr. Nahed Yañez HbA1c (Bld) [Mass fraction] 6.5 % Critically high 4.5-6.2 [facility] Comment on above: Performed By: #### A 1C ####[facility] Uxgnvbzduj[address] [place], [place] [address]Dr. Nahed Yañez LIPID PROFILEon 01-31-2022 CHOL-HDL RATIO NORM SEE BELOW Normal [facility] Comment on above: Result Comment: 3.3 - 4.4 LOW RISK 4.4 - 7.1 AVERAGE RISK 7.1 - 11.0 MODERATE RISK >11.0 HIGH RISK Performed By: #### L IPID ####[facility] Yuijfymsox36[address] [place] [address]Dr. Nahed Yañez Cholesterol [Mass/Vol] 152 mg/dL Normal <=200 [facility] Comment on above: Performed By: #### L IPID ####[facility] Dakealacox9[address] [place] [address]Dr. Nahed Yañez Cholesterol in HDL [Mass/Vol] 74 mg/dL Critically high 40-60 [facility] Comment on above: Performed By: #### L IPID ####[facility] Jawxeesjuo6578 [place] [id number]. Nahed Yañez Cholesterol in LDL [Mass/Vol] 62.8 mg/dL Normal [facility] Comment on above: Performed By: #### L IPID ####[facility] Iqctutbizo5940 [place] [id number]. Nahed Yañez Cholesterol.total/Chol esterol in HDL [Mass ratio] 2.1 {ratio} Normal [facility] Comment on above: Performed By: #### L IPID ####[facility] Ihymrwxwus[address] [place] [id number]. Nahed Yañez HDL NORMAL > or = 60 mg/dl - LO W CARDIOVASCULAR RISK <40 mg/dl - HIGH CARDIOVASCULAR RISK Normal [facility] Comment on above: Performed By: #### L IPID ####[facility] Ffhapqoknj8[address] [place] [address]Dr. Nahed Yañez LDL CALC NORMAL SEE BELOW Normal [facility] Comment on above: Result Comment: <100 mg/dl OPTIMAL 100 - 129 mg/dl NEAR OR ABOVE OPTIMAL 130 - 159 mg/dl BORDERLINE HIGH 160 - 189 mg/dl HIGH >190 mg/dl VERY HIGH Performed By: #### L IPID ####[facility] Zzxfyxqohc9683 [place] [id number]. Nahed Yañez Triglyceride [Mass/Vol] 76 mg/dL Normal <=150 [facility] Comment on above: Performed By: #### L IPID ####[facility] Tzxcmcqauh0386 [place] [id number]. Nahed Yañez VLDL CALC 15.2 mg/dL Normal [facility] Comment on above: Performed By: #### L IPID ####[facility] Gisvaefgkp4[address] [place] [id number]. Nahed Yañez XR CHEST 1 Von 01-31-2022 XR CHEST 1 V Normal [facility] BNPon 01-30-2022 Natriuretic peptide B (Bld) [Mass/Vol] 150.0 pg/mL Normal <=900.0 [facility] Comment on above: Performed By: #### B MP, BNP, CMADM ####[facility] Urjookkzlp[address] [place] [address]Dr. Nahed Yañez CARDIAC FRANCISCO ADMITon 022 CK [Catalytic activity/Vol] 88 U/L Normal 26-192 [facility] Comment on above: Performed By: #### B MP, BNP, CMADM ####[facility] Vwopnfarzc65[address] [place] [address]Dr. Nahed Yañez CK.MB [Mass/Vol] 1.26 ng/mL Normal <=3.60 [facility] Comment on above: Performed By: #### B MP, BNP, CMADM ####[facility] Ouddqrcwpj[address] [place] [address]Dr. Nahed Otilio HSTROP 69.3 pg/mL Critically high 4.0-51.3 The [facility] Comment on above: Result Comment: CUT- OFF POINTS HAVE BEEN ESTABLISHED BASED ON THE FOURTH UNIVERSAL DEFINITIONS OF MYOCARDIALINFARCTION. THE UPPER REFERENCE LIMIT (URL) OF TROPONIN, DEFINED THE 99TH PERCENTILE OFcTnI DISTRIBUTION IN A REFERENCE POPULATION, HAS BEEN CONFIRMED THE DECISION THRESHOLDFOR [place] DIAGNOSIS. Performed By: #### B MP, BNP, CMADM ####[facility] Kuslfrojwz[address] [place] [address]Dr. Nahed Otilio ANDRE 59 ng/mL Normal 9-82 [facility] Comment on above: Performed By: #### B MP, BNP, CMADM ####[facility] Jmntwgrayc6985 [place] [address]Dr. Nahed Otilio CBC AUTO DIFFon 01-30-2022 BASO # 0.0 103/ul Normal 0.0-0.1 [facility] Comment on above: Performed By: #### C BC ####[facility] Gvqxljhidk95[address] [place] [address]Dr. Rosemarieashley Yañez Basophils/100 WBC (Bld) 0.2 % Normal 0.2-2.0 [facility] Comment on above: Performed By: #### C BC ####[facility] Imndebtqim2573 [place] [address]Dr. Nahed Yañez EO # 0.1 103/ul Normal 0.0-0.7 [facility] Comment on above: Performed By: #### C BC ####[facility] Nefysdkecf7859 [place] [address]Dr. Nahed Yañez Eosinophils/100 WBC (Bld) 0.8 % Critically low 0.9-7.0 [facility] Comment on above: Performed By: #### C BC ####[facility] Pvrvvzwkre2316 [place] [address]Dr. Nahed Yañez Erythrocyte distribution width (RBC) [Ratio] 14.9 % Normal 11.0-15.0 [facility] Comment on above: Performed By: #### C BC ####[facility] Qvcrfknlhv[address] [place], [place] [address]Dr. Nahed Yañez Hematocrit (Bld) [Volume fraction] 45.8 % Normal 36.0-48.0 [facility] Comment on above: Performed By: #### C BC ####[facility] Zhnddvzfkz[address] [place], [place] [address]Dr. Nahed Yañez Hemoglobin (Bld) [Mass/Vol] 14.7 g/dL Normal 12.0-16.0 [facility] Comment on above: Performed By: #### C BC ####[facility] Ghilgcspvz[address] [place], [place] [address]Dr. Nahed Yañez IG # 0.07 10e3/ul Critically high 0.00-0.03 [facility] Comment on above: Performed By: #### C BC ####[facility] Vhtiaxtbcd3488 [place] [address]Dr. Nahed Yañez IG % 0.4 % Normal 0.0-0.5 [facility] Comment on above: Performed By: #### C BC ####[facility] Pevwjqhlsu[address] [place], [place] [address]Dr. Nahed Yañez LYMPH # 2.3 103/ul Normal 1.2-3.8 [facility] Comment on above: Performed By: #### C BC ####[facility] [address]mp[address] [place] [address]. Nahed Yañez Lymphocytes/100 WBC (Bld) 12.5 % Critically low 20.5-60.0 [facility] Comment on above: Performed By: #### C BC ####[facility] Zfokxkeart7546 [place] [address]Dr. Nahed Yañez MANUAL DIFF REQ NO Normal [facility] Comment on above: Performed By: #### C BC ####[facility] Gpejrvslql7022 [place] [address]Dr. Nahed Yañez MCH (RBC) [Entitic mass] 28.0 pg Normal 26.7-34.0 [facility] Comment on above: Performed By: #### C BC ####[facility] Fznlldhrcf[address] [place], [place] [address]Dr. Nahed Yañez MCHC (RBC) [Mass/Vol] 32.1 g/dL Normal 29.9-35.2 [facility] Comment on above: Performed By: #### C BC ####[facility] Nkznczzknw[address] [place], [place] [address]Dr. Nahed Yañez MCV (RBC) [Entitic vol] 87.2 fL Normal 81.0-99.0 [facility] Comment on above: Performed By: #### C BC ####[facility] Ufzysdqtda[address] [place], [place] [address]Dr. Nahed Yañez MONO # 0.9 103/ul Critically high 0.3-0.8 [facility] Comment on above: Performed By: #### C BC ####[facility] Tnnweipprd[address] [place], [place] [address]Dr. Nahed Yañez Monocytes/100 WBC (Bld) 5.1 % Normal 1.7-12.0 [facility] Comment on above: Performed By: #### C BC ####[facility] [address]ajyyq[address] [place], [place] [address]Dr. Nahed Yañez NEUT # 14.6 103/ul Critically high 1.4-6.5 [facility] Comment on above: Performed By: #### C BC ####[facility] [address]opuvyikjc[address] [place], [place] [address]Dr. Nahed Yañez Neutrophils/100 WBC (Bld) 81.0 % Critically high 43.0-75.0 [facility] Comment on above: Performed By: #### C BC ####[facility] Xnznoaybeh5219 [place] [address]Dr. Nahed Yañez Platelet mean volume (Bld) [Entitic vol] 10.3 fL Normal 9.5-13.5 [facility] Comment on above: Performed By: #### C BC ####[facility] Deyzcuezfs2895 [place] [address]Dr. Nahed Yañez PLT 280 103/ul Normal 150-450 [facility] Comment on above: Performed By: #### C BC ####[facility] Ztwvxovkte5191 [place] [address]Dr. Nahed Yañez RBC 5.25 106/ul Normal 4.20-5.40 [facility] Comment on above: Performed By: #### C BC ####[facility] Mhxxixhcvx4720 [place] [address]Dr. Nahed Yañez WBC 18.1 103/ul Critically high 4.0-11.0 [facility] Comment on above: Performed By: #### C BC ####[facility] Btaftwfkmm[address] [place] [address]Dr. Nahed Yañez PROF CHEM 8 (BAS METB)on Anion gap [Moles/Vol] 13.5 mmol/L Normal [facility] Comment on above: Performed By: #### B MP, BNP, CMADM ####[facility] Dytlseutbm[address]197 [place] [address]Dr. Nahed Yañez Calcium [Mass/Vol] 9.5 mg/dL Normal 8.5-10.1 [facility] Comment on above: Performed By: #### B MP, BNP, CMADM ####[facility] Suwsgwglpm[address] [place] [address]Dr. Nahed Yañez Chloride [Moles/Vol] 102 mmol/L Normal 98-107 [facility] Comment on above: Performed By: #### B MP, BNP, CMADM ####[facility] Lkvyczycdb6521 [place] [address]Dr. Nahed Yañez CO2 [Moles/Vol] 26.6 mmol/L Normal 21.0-32.0 [facility] Comment on above: Performed By: #### B MP, BNP, CMADM ####[facility] Xdgemdztog16[address] [place] [address]Dr. Nahed Yañez Creatinine [Mass/Vol] 1.06 mg/dL Critically high 0.55-1.02 [facility] Comment on above: Performed By: #### B MP, BNP, CMADM ####[facility] Yffxpvogst2753 [place] [address]Dr. Nahed Yañez EGFR-AF MOSOTHO >60 Normal >=60 [facility] Comment on above: Performed By: #### B MP, BNP, CMADM ####[facility] Bwotbicteb[address] [place], [place] [address]Dr. Rosemarieashley Otilio EGFR-NON AF MOSOTHO 53 mL/min/1.73m2 Critically low >=60 [facility] Comment on above: Performed By: #### B MP, BNP, CMADM ####[facility] [address]tnqczttop[address] [place], [place] [address]Dr. Nahed Yañez Glucose [Mass/Vol] 108 mg/dL Critically high 74-106 [facility] Comment on above: Performed By: #### B MP, BNP, CMADM ####[facility] Phtdchksdh6278 [place] [address]Dr. Nahed Yañez Potassium [Moles/Vol] 4.1 mmol/L Normal 3.5-5.1 [facility] Comment on above: Performed By: #### B MP, BNP, CMADM ####[facility] [address]fm[address]pc[address] [place], [place] [address]Dr. Nahed Yañez Sodium [Moles/Vol] 138 mmol/L Normal 136-145 [facility] Comment on above: Performed By: #### B MP, BNP, CMADM ####[facility] Yvdldffmqk9641 [place] [address]Dr. Nahed Yañez Urea nitrogen [Mass/Vol] 9.0 mg/dL Normal 7.0-18.0 [facility] Comment on above: Performed By: #### B MP, BNP, CMADM ####[facility] F[address]uxfofu[address] [place], [place] [address]Pd. Nahed Yañez Urea nitrogen/Creatinine [Mass ratio] 8.5 mg/mg Normal [facility] Comment on above: Performed By: #### B MP, BNP, CMADM ####[facility] Etwctctmff[address] [place], [place] [address]Vl. Nahed Yañez Cardiovascular Lab Reporton 11-03-2021 Cardiovascular Lab Report [facility] Patient Name: Vivian Vann [facility] MR #: [id number] Physician: Gasper Avendano Department of M.D. Medicine Service Date: 11/02/2021 Division of Birthdate: 1960 Cardiology Room #: 4AB [id number] Adult [facility] Services [place] [address] Cardiovascular Laboratory Report FINAL IMPRESSIONS: 1. Severe, [...] anterior descending coronary artery, placement of a 6-Algerian MynxGrip closure device. METHODS: After risks, benefits, and alternatives were explained, written informed consent was obtained. The patient was prepped and draped in usual sterile fashion over both groins. Using 1% lidocaine solution, local infiltration anesthesia was achieved over the right groin. Under ultrasound guidance, a micropuncture kit was used to access the right common femoral artery. This was upsized to a 6-Algerian 11 cm sheath. Angiography via the 6-Algerian sheath was performed. Bilateral selective coronary angiography was performed using JL4 and JR4 catheters. After reviewing the images, it was elected to proceed with an interventional procedure. A 6-Algerian XB3.5 guide catheter was advanced over a [...] artery, angiography was repeated initially using a 6-Algerian 3DRC catheter and subsequently using a 4-Algerian JR4 catheter. After administration of intracoronary nitroglycerin, the concerning lesion almost completely resolved. There was a residual mild stenosis. All catheters removed. A 6-Algerian MynxGrip closure device was deployed per protocol [...] and anatomy suitable for closure device. INDICATION: [id number] myocardial infarction. Electronically Signed by: Gasper Avendano M.D. 11/21/2021 02:07 P Gasper Avendano M.D (more content not included)... Normal The [facility] CBC COMPLETE BLOOD COUNTon 0 11-02-2021 Erythrocyte distribution width (RBC) [Ratio] 14.7 % Normal 11.5-15.0 [facility] Comment on above: Order Comment: No: D o not add to previous draw Performed By: #### 3 5200, [id number] #### [facility] [address] [facility]. [address] Hematocrit (Bld) [Volume fraction] 34.5 % Low 36.0-45.0 [facility] Comment on above: Order Comment: No: D o not add to previous draw Performed By: #### 3 4950, [id number] #### [facility] [address] [facility] [place] [address], [facility] Hemoglobin (Bld) [Mass/Vol] 10.6 g/dL Low 12.0-15.0 [facility] Comment on above: Order Comment: No: D o not add to previous draw Performed By: #### 3 5200, [id number] #### [facility] [address] [facility] [place] [id number], [facility] MCH (RBC) [Entitic mass] 28.1 pg Normal 27.0-33.0 [facility] Comment on above: Order Comment: No: D o not add to previous draw Performed By: #### 3 0, 12116 #### [facility] [address] [place] [address], [facility] MCHC (RBC) [Mass/Vol] 30.7 g/dL Low 32.0-35.0 The [facility] Comment on above: Order Comment: No: D o not add to previous draw Performed By: #### 3 0, 81454 #### [facility] [address] [place] [address], [facility] MCV (RBC) [Entitic vol] 91.5 fL Normal 82.0-98.0 The [facility] Comment on above: Order Comment: No: D o not add to previous draw Performed By: #### 3 5199, 45750 #### [facility] [address] [place] [address], [facility] Nucleated RBC/100 WBC (Bld) [Ratio] 0 % Normal 0-0 The [facility] Comment on above: Order Comment: No: D o not add to previous draw Performed By: #### 3 5199, 59804 #### [facility] [address] [place] [address], [facility] PLAT CNT 219 10*3/uL Normal 150-400 The [facility] Comment on above: Order Comment: No: D o not add to previous draw Performed By: #### 3 5199, 88650 #### [facility] [address] [address], [facility] RBC (Bld) [#/Vol] 3.77 10*6/uL Low 3.80-5.00 The [facility] Comment on above: Order Comment: No: D o not add to previous draw Performed By: #### 3 5199, 95661 #### [facility] [address] [place] [address], [facility] WBC (Bld) [#/Vol] 13.64 10*3/uL High 4.00-10.60 The [facility] Comment on above: Order Comment: No: D o not add to previous draw Performed By: #### 3 5200, 38485 #### [facility] [address] [place] [address], [facility] HEMOGLOBIN A1Con 11-02-2021 Glucose [Moles/Vol] 140 mmol/L Normal The [facility] Comment on above: Order Comment: No: D o not add to previous draw Performed By: #### 3 1791 #### [facility] [address] [place] [address], [facility] HbA1c (Bld) [Mass fraction] 6.5 % High 4.0-6.0 The [facility] Comment on above: Order Comment: No: D o not add to previous draw Performed By: #### 3 1791 #### [facility] [address] [place] [address], [place] LIPID PROFILEon 11-02-2021 Cholesterol [Mass/Vol] 171 mg/dL Normal 120-200 Th e [facility] Comment on above: Order Comment: No: D o not add to previous draw Result Comment: CHOL ESTEROL REFERENCE RANGE: 20 YEARS AND OLDER CARDIOVASCULAR RISK Less than 200 mg/dl Low Risk 200 to 239 mg/dl Borderline Risk 240 mg/dl and greater High Risk Performed By: #### 3 5200, 15755 #### [facility] [address] [place] [address], [facility] Cholesterol in HDL [Mass/Vol] 57 mg/dL Normal 23-92 The [facility] Comment on above: Order Comment: No: D o not add to previous draw Result Comment: Slig ht variation in normal range could be due to gender and/or age. HDL CHOLESTEROL REFERENCE RANGE: 20 years and older Cardiovascular Risk > or =60 mg/dL Desirable 40 TO 59 mg/dL Low Risk <40 mg/dL High Risk Performed By: #### 3 5200, 37409 #### [facility] [address] [place] [address], [place] Cholesterol in LDL [Mass/Vol] 89 mg/dL Normal 0-130 The [facility] Comment on above: Order Comment: No: D o not add to previous draw Result Comment: LDL IS A CALCULATION LDL IS ONLY VALID IF THE TRIG IS LESS THAN 400. Performed By: #### 3 5200, 25356 #### [facility] [address] Cholesterol.total/Chol esterol in HDL [Mass ratio] 3.0 {ratio} Normal .0-4.5 The [facility] Comment on above: Order Comment: No: D o not add to previous draw Performed By: #### 3 5200, 95787 #### [facility] [address] NON-HDL CHOLESTEROL 114 mg/dL Normal [facility] Comment on above: Order Comment: No: D o not add to previous draw Performed By: #### 3 5200, 60774 #### [facility] [address] Triglyceride [Mass/Vol] 124 mg/dL Normal 40-149 The [facility] Comment on above: Order Comment: No: D o not add to previous draw Result Comment: TRIG LYCERIDE REFERENCE RANGE: 20 YEARS AND OLDER CARDIOVASCULAR RISK LESS THAN 150 mg/dl LOW RISK 150 TO 199 mg/dl BORDERLINE RISK 200 mg/dl AND GREATER HIGH RISK Performed By: #### 3 5200, 56373 #### [facility] [address] [place] [address], [facility] VLDL CHOL 25 mg/dL Normal 0-40 The [facility] Comment on above: Order Comment: No: D o not add to previous draw Performed By: #### 3 5200, 84037 #### [facility] [address] TROPONIN-Ion 11-02-2021 Troponin I.cardiac [Mass/Vol] 0.14 ng/mL Critically high 0.00-0.04 The [facility] Comment on above: Result Comment: M-MT EVIOUS CRITICAL RESULT REFERENCE RANGES: 0.00 - 0.04 ng/ml NORMAL 0.05 - 0.50 ng/ml INDETERMINATE > 0.50 ng/ml CONSISTENT WITH AN M.I. Performed By: #### 3 5200, 57017 #### [facility] [address] Troponin I.cardiac [Mass/Vol] 0.19 ng/mL Critically high 0.00-0.04 The [facility] Comment on above: Order Comment: No: D o not add to previous draw Result Comment: M-MT EVIOUS CRITICAL RESULT REFERENCE RANGES: 0.00 - 0.04 ng/ml NORMAL 0.05 - 0.50 ng/ml INDETERMINATE > 0.50 ng/ml CONSISTENT WITH AN M.I. Performed By: #### 3 5200 #### [facility] [address] TYPE AND SCREENon 11-02-2021 ABO INTERPRETATION O Normal The [facility] Comment on above: Performed By: #### 3 5200, 06758 #### [facility] [address] [facility] [place] [address], [facility] RH INTERPRETATION Positive Normal The [facility] Comment on above: Performed By: #### 3 5200, 27475 #### [facility] [address] UFH HEPARIN ASSAYon 11-03-19 22 UNFRACTIONATED HEPARIN 0.76 IU/mL High 0.30-0.70 Th e [facility] Comment on above: Result Comment: Clare roxaban and Apixaban will interfere with the anti Xa assay used to monitor UFH and LMWH. Performed By: #### 3 5200, 43034 #### [facility] [address] [place] [address], [facility] UNFRACTIONATED HEPARIN 0.96 IU/mL Critically high 0.30-0.7 0 The [facility] Comment on above: Result Comment: Resu lt checked and called. Accurately read back by Kathy Kralik RN at 0548 Rivaroxaban and Apixaban will interfere with the anti Xa assay used to monitor UFH and LMWH. Performed By: #### 3 0477 #### [facility] [address] APTTon 11-01-2021 aPTT Coag (Bld) [Time] 28.6 s Normal 25.0-35.0 Th e [facility] Comment on above: Order Comment: No: [...] THIS PURPOSE. Performed By: #### 3 5200, 42867 #### [facility] [address] BNPon 11-01-2021 Natriuretic peptide B (Bld) [Mass/Vol] 9643.0 pg/mL Critically high <=900.0 [facility] Comment on above: Performed By: #### C MP, BNP, HSTROPN ####[facility] [address] [place] [address]DrShaun Nahed Yañez BNP (B-TYPE NATRIURETIC PEPT AYLEEN)on 11-01-2021 Natriuretic peptide B (Bld) [Mass/Vol] 768 pg/mL High 0-100 The [facility] Comment on above: Order Comment: No: D o not add to previous draw Result Comment: Give n the appropriate clinical setting a BNP result of >100 pg/mL indicates congestive heart failure. Performed By: #### 8 5123 #### [facility] [address] CBC AUTO DIFFon 11-01-2021 BASO # 0.0 103/ul Normal 0.0-0.1 [facility] Comment on above: Performed By: #### C BC ####[facility] [address] [place] [address]Dr. Nahed Yañez Basophils/100 WBC (Bld) 0.1 % Critically low 0.2-2.0 [facility] Comment on above: Performed By: #### C BC ####[facility] [address] [place] [address]Dr. Nahed Yañez EO # 0.0 103/ul Normal 0.0-0.7 [facility] Comment on above: Performed By: #### C BC ####[facility] [address] [place], [place] [address]Dr. Nahed Yañez Eosinophils/100 WBC (Bld) 0.0 % Critically low 0.9-7.0 The [facility] Comment on above: Performed By: #### C BC ####[facility] [address] [place], [place] [address]Dr. Nahed Yañez Erythrocyte distribution width (RBC) [Ratio] 14.7 % Normal 11.0-15.0 [facility] Comment on above: Performed By: #### C BC ####[facility] [address] [place], [place] [address]Dr. Nahed Yañez Hematocrit (Bld) [Volume fraction] 36.1 % Normal 36.0-48.0 [facility] Comment on above: Performed By: #### C BC ####[facility] [address] [place], [place] [address]Dr. Nahed Yañez Hemoglobin (Bld) [Mass/Vol] 11.1 g/dL Critically low 12.0-16.0 [facility] Comment on above: Result Comment: IV a ntibiotics Performed By: #### C BC ####[facility] [address] [place], [place] [address]Dr. Rosemarieashley Otilio IG # 0.09 10e3/ul Critically high 0.00-0.03 [facility] Comment on above: Performed By: #### C BC ####[facility] [address] [place], [place] [address]Dr. Nahed Yañez IG % 0.7 % Critically high 0.0-0.5 The [facility] Comment on above: Performed By: #### C BC ####[facility] [address] [place] [address]Dr. Nahed Otilio LYMPH # 0.6 103/ul Critically low 1.2-3.[address] [facility] Comment on above: Performed By: #### C BC ####[facility] [address] [place] [address]Dr. Rosemarieashley Yañez Lymphocytes/100 WBC (Bld) 4.8 % Critically low 20.5-60.0 [facility] Comment on above: Performed By: #### C BC ####[facility] [address] [place] [id number]. Nahed Yañez MANUAL DIFF REQ NO Normal [facility] Comment on above: Performed By: #### C BC ####[facility] [address] [place] [address]Dr. Nahed Yañez MCH (RBC) [Entitic mass] 28.2 pg Normal 26.7-34.0 [facility] Comment on above: Performed By: #### C BC ####[facility] [address] [place] [address]Dr. Nahed Yañez MCHC (RBC) [Mass/Vol] 30.7 g/dL Normal 29.9-35.2 [facility] Comment on above: Performed By: #### C BC ####[facility] [address] [place] [address]Dr. Nahed Yañez MCV (RBC) [Entitic vol] 91.9 fL Normal 81.0-99.0 [facility] Comment on above: Performed By: #### C BC ####[facility] [address] [place] [address]Dr. Nahed Yañez MONO # 0.2 103/ul Critically low 0.3-0.[address] [facility] Comment on above: Performed By: #### C BC ####[facility] [address] [place] [address]Dr. Nahed Yañez Monocytes/100 WBC (Bld) 1.7 % Normal 1.7-12.0 [facility] Comment on above: Performed By: #### C BC ####[facility] [address] [place], [place] [address]Do. Nahed Yañez NEUT # 11.2 103/ul Critically high 1.4-6.5 The [facility] Comment on above: Performed By: #### C BC ####[facility] [address] [place], [place] [address]Nn. Nahed Yañez Neutrophils/100 WBC (Bld) 92.7 % Critically high 43.0-75.0 [facility] Comment on above: Performed By: #### C BC ####[facility] [address] [place] [id number]. Nahed Yañez Platelet mean volume (Bld) [Entitic vol] 11.1 fL Normal 9.5-13.5 [facility] Comment on above: Performed By: #### C BC ####[facility] [address] [place] [id number]. Nahed Yañez PLT 213 103/ul Normal 150-450 [facility] Comment on above: Performed By: #### C BC ####[facility] [address] [place] [address]Dr. Nahed Yañez RBC 3.93 106/ul Critically low 4.20-5.40 The [facility] Comment on above: Performed By: #### C BC ####[facility] [address] [place] [address]Dr. Nahed Yañez WBC 12.0 103/ul Critically high 4.0-11.0 The [facility] Comment on above: Performed By: #### C BC ####[facility] [address] [place] [address]Dr. Nahed Yañez CBC W/DIFFon 11-01-2021 ABS IMM GRANS 0.2 10*3/uL Normal 0.0-0.2 The [facility] Comment on above: Order Comment: No: D o not add to previous draw Performed By: #### 3 1960, 23732 #### [facility] [address] [place] [address], [place] ABS NEUTROPHILS 12.5 10*3/uL High 1.6-7.6 The [facility] Comment on above: Order Comment: No: D o not add to previous draw Performed By: #### 3 5200, 54010 #### [facility] [address] [place] [address], [facility] Basophils (Bld) [#/Vol] 0.0 10*3/uL Normal 0.0-0.2 [facility] Comment on above: Order Comment: No: D o not add to previous draw Performed By: #### 3 5199, 65149 #### [facility] [address] [place] [address], [facility] Basophils/100 WBC (Bld) 0.0 % Normal 0.0-1.0 [facility] Comment on above: Order Comment: No: D o not add to previous draw Performed By: #### 3 5199, 20762 #### [facility] [address] [place] [address], [facility] Eosinophils (Bld) [#/Vol] 0.0 10*3/uL Normal 0.0-0.5 [facility] Comment on above: Order Comment: No: D o not add to previous draw Performed By: #### 3 5199, 27051 #### [facility] [address] [facility] [place] [address], [facility] Eosinophils/100 WBC (Bld) 0.0 % Normal 0.0-6.0 [facility] Comment on above: Order Comment: No: D o not add to previous draw Performed By: #### 3 0, 92947 #### [facility] [address] [facility] [place] [address], [place] Erythrocyte distribution width (RBC) [Ratio] 14.6 % Normal 11.5-15.0 [facility] Comment on above: Order Comment: No: D o not add to previous draw Performed By: #### 3 5199, 61014 #### [facility] [address] Hematocrit (Bld) [Volume fraction] 36.6 % Normal 36.0-45.0 [facility] Comment on above: Order Comment: No: D o not add to previous draw Performed By: #### 3 5199, 68475 #### [facility] [address] [facility] [place] [address], [facility] Hemoglobin (Bld) [Mass/Vol] 11.4 g/dL Low 12.0-15.0 [facility] Comment on above: Order Comment: No: D o not add to previous draw Performed By: #### 3 5199, 72654 #### [facility] [address] [place] [address], [facility] IMMATURE GRANS 1.2 % High 0.0-1.0 [facility] Comment on above: Order Comment: No: D o not add to previous draw Performed By: #### 3 5199, 42392 #### [facility] [address] [facility]. [address] Lymphocytes (Bld) [#/Vol] 0.6 10*3/uL Low 1.2-4.0 [facility] Comment on above: Order Comment: No: D o not add to previous draw Performed By: #### 3 5199, 00899 #### [facility] [address] [facility] [address], [facility] Lymphocytes/100 WBC (Bld) 4.2 % Low 20.0-45.0 [facility] Comment on above: Order Comment: No: D o not add to previous draw Performed By: #### 3 5199, 73876 #### [facility] [address] [facility] [address], [facility] MCH (RBC) [Entitic mass] 28.2 pg Normal 27.0-33.0 [facility] Comment on above: Order Comment: No: D o not add to previous draw Performed By: #### 3 5199, 77137 #### [facility] [address] [place] [address], [facility] MCHC (RBC) [Mass/Vol] 31.1 g/dL Low 32.0-35.0 [facility] Comment on above: Order Comment: No: D o not add to previous draw Performed By: #### 3 0, 73826 #### [facility] [address] [place] [address], [facility] MCV (RBC) [Entitic vol] 90.6 fL Normal 82.0-98.0 [facility] Comment on above: Order Comment: No: D o not add to previous draw Performed By: #### 3 5199, 84928 #### [facility] [address] [place] [id number], [facility] Monocytes (Bld) [#/Vol] 0.5 10*3/uL Normal 0.1-1.0 [facility] Comment on above: Order Comment: No: D o not add to previous draw Performed By: #### 3 5199, 07933 #### [facility] [address] [place] [address], [facility] MONOS 3.3 % Low 5.0-12.0 [facility] Comment on above: Order Comment: No: D o not add to previous draw Performed By: #### 3 5199, 25483 #### [facility] [address] [place] [address], [facility] Neutrophils/100 WBC (Bld) 91.3 % High 40.0-72.0 [facility] Comment on above: Order Comment: No: D o not add to previous draw Performed By: #### 3 5199, 06127 #### [facility] [address] [place] [id number], [facility] Nucleated RBC/100 WBC (Bld) [Ratio] 0 % Normal 0-0 [facility] Comment on above: Order Comment: No: D o not add to previous draw Performed By: #### 3 5200, 75493 #### [facility] [address] [place] [address], [facility] PLAT CNT 224 10*3/uL Normal 150-400 [facility] Comment on above: Order Comment: No: D o not add to previous draw Performed By: #### 3 5200, 01508 #### [facility] [address] [place] [address], [facility] RBC (Bld) [#/Vol] 4.04 10*6/uL Normal 3.80-5.00 [facility] Comment on above: Order Comment: No: D o not add to previous draw Performed By: #### 3 5200, 75139 #### [facility] [address] [place] [address], [facility] WBC (Bld) [#/Vol] 13.70 10*3/uL High 4.00-10.60 [facility] Comment on above: Order Comment: No: D o not add to previous draw Performed By: #### 3 5200, 62059 #### [facility] [address] [place] [address], [facility] COMP METABOLIC PANELon 11-01 Albumin [Mass/Vol] 3.7 g/dL Normal 3.5-5.7 [facility] Comment on above: Order Comment: No: D o not add to previous draw Performed By: #### 0 0121, 74751, 25882 #### [facility] [address] [place] [address], [facility] ALKALINE PHOSPH 54 IU/L Normal 34-104 [facility] Comment on above: Order Comment: No: D o not add to previous draw Performed By: #### 0 0121, 69944, 56828 #### [facility] [address] [place] [address], [place] ALT [Catalytic activity/Vol] 12 U/L Normal 7-52 [facility] Comment on above: Order Comment: No: D o not add to previous draw Performed By: #### 0 0121, 14359, 31074 #### [facility] [address] [place] [address], [place] AST [Catalytic activity/Vol] 17 U/L Normal 13-39 [facility] Comment on above: Order Comment: No: D o not add to previous draw Performed By: #### 0 0121, 52354, 61835 #### [facility] [address] [place] [address], [place] Bilirubin [Mass/Vol] 0.3 mg/dL Normal 0.3-1.0 [facility] Comment on above: Order Comment: No: D o not add to previous draw Performed By: #### 0 0121, 12045, 47524 #### [facility] [address] [place] [address], [place] Calcium [Mass/Vol] 9.4 mg/dL Normal 8.6-10.3 [facility] Comment on above: Order Comment: No: D o not add to previous draw Performed By: #### 0 0121, 78111, 65158 #### [facility] [address] [place] [address], [place] Chloride [Moles/Vol] 100 mmol/L Normal 98-107 [facility] Comment on above: Order Comment: No: D o not add to previous draw Performed By: #### 0 0121, 55946, 35441 #### [facility] [address] [place] [address], [place] CO2 [Moles/Vol] 29 mmol/L Normal 21-31 [facility] Comment on above: Order Comment: No: D o not add to previous draw Performed By: #### 0 0121, 60505, 62367 #### [facility] [address] [place] [address], [place] Creatinine [Mass/Vol] 1.04 mg/dL Normal 0.60-1.20 [facility] Comment on above: Order Comment: No: D o not add to previous draw Performed By: #### 0 0121, 95039, 23505 #### [facility] [address] [place] [address], [place] eGFR- non- 54 ml/min/1.73sq m Abnormal >60 [facility] Comment on above: Order Comment: No: D o not add to previous draw Performed By: #### 0 0121, 30151, 30035 #### [facility] [address] [place] [address], [place] GFR/1.73 sq M.predicted among blacks MDRD (S/P/Bld) [Vol rate/Area] mL/min/{1.73_m2} Normal >60 [facility] Comment on above: Order Comment: No: D o not add to previous draw Performed By: #### 0 0121, 75970, 33151 #### [facility] [address] [place] [address], [place] Glucose [Mass/Vol] 239 mg/dL High 70-100 [facility] Comment on above: Order Comment: No: D o not add to previous draw Performed By: #### 0 0121, 63959, 63615 #### [facility] [address] [place] [address], [place] Potassium [Moles/Vol] 4.3 mmol/L Normal 3.5-5.1 [facility] Comment on above: Order Comment: No: D o not add to previous draw Performed By: #### 0 0121, 90874, 80124 #### [facility] [address] [place] [address], [place] Protein [Mass/Vol] 5.6 g/dL Low 6.0-8.3 [facility] Comment on above: Order Comment: No: D o not add to previous draw Performed By: #### 0 0121, 00549, 98851 #### [facility] [address] [place] [address], [facility] Sodium [Moles/Vol] 139 mmol/L Normal 136-145 [facility] Comment on above: Order Comment: No: D o not add to previous draw Performed By: #### 0 0121, 26680, 40971 #### [facility] [address] [place] [address], [facility] Urea nitrogen [Mass/Vol] 24 mg/dL Normal 7-25 [facility] Comment on above: Order Comment: No: D o not add to previous draw Performed By: #### 0 0121, 48113, 98049 #### [facility] [address] [place] [address], [facility] MAGNESIUM BLOODon 11-01-2021 Magnesium [Mass/Vol] 2.0 mg/dL Normal 1.9-2.7 [facility] Comment on above: Order Comment: No: D o not add to previous draw Performed By: #### 0 0121, [id number], [id number] #### [facility] [address] [place] [address], [facility] PROF 14(COMP METB)on 022 Albumin [Mass/Vol] 3.1 g/dL Critically low 3.4-5.0 [facility] Comment on above: Performed By: #### C MP, BNP, HSTROPN ####[facility] Fcofndrefe[address] [place] [address]Dr. Nahed Yañez Albumin/Globulin [Mass ratio] 1.0 {ratio} Normal [facility] Comment on above: Performed By: #### C MP, BNP, HSTROPN ####[facility] Yykhhoacan[address] [place] [address]Dr. Nahed Yañez ALP [Catalytic activity/Vol] 56 U/L Normal 46-116 [facility] Comment on above: Performed By: #### C MP, BNP, HSTROPN ####[facility] Mdcvpzwgaq[address] [place] [address]Dr. Nahed Yañez ALT [Catalytic activity/Vol] 19 U/L Normal 14-59 [facility] Comment on above: Performed By: #### C MP, BNP, HSTROPN ####[facility] Zdhxyapklj[address] [place] [address]Dr. Nahed Yañez Anion gap [Moles/Vol] 14.3 mmol/L Normal Th e [facility] Comment on above: Performed By: #### C MP, BNP, HSTROPN ####[facility] Blhfww[address] [place], [place] [address]Dr. Nahed Yañez AST [Catalytic activity/Vol] 18 U/L Normal 15-37 [facility] Comment on above: Performed By: #### C MP, BNP, HSTROPN ####[facility] Dneryqwsbu[address] [place], [place] [address]Dr. Nahed Yañez Bilirubin [Mass/Vol] 0.4 mg/dL Normal 0.2-1.0 [facility] Comment on above: Performed By: #### C MP, BNP, HSTROPN ####[facility] Wnqwybxxdc[address] [place], [place] [address]Dr. Nahed Yañez Calcium [Mass/Vol] 9.3 mg/dL Normal 8.5-10.1 [facility] Comment on above: Performed By: #### C MP, BNP, HSTROPN ####[facility] W[address]lunkeyw[address] [place] [address]Dr. Nahed Yañez Chloride [Moles/Vol] 102 mmol/L Normal 98-107 [facility] Comment on above: Performed By: #### C MP, BNP, HSTROPN ####[facility] Oopekmfmzt[address] [place], [place] [address]Dr. Nahed Yañez CO2 [Moles/Vol] 27.1 mmol/L Normal 21.0-32.0 The [facility] Comment on above: Performed By: #### C MP, BNP, HSTROPN ####[facility] Hauzereppa[address] [place] [address]Dr. Nahed Yañez Creatinine [Mass/Vol] 1.25 mg/dL Critically high 0.55-1.02 [facility] Comment on above: Performed By: #### C MP, BNP, HSTROPN ####[facility] Tiwetlefhx[address] [place] [address]Dr. Nahed Yañez EGFR-AF MOSOTHO 53 mL/min/1.73m2 Critically low >=60 [facility] Comment on above: Performed By: #### C MP, BNP, HSTROPN ####[facility] Jzqfffosno[address] [place] [address]Dr. Nahed Yañez EGFR-NON AF MOSOTHO 44 mL/min/1.73m2 Critically low >=60 [facility] Comment on above: Performed By: #### C MP, BNP, HSTROPN ####[facility] Enmvoxntjk[address] [place] [address]Dr. Nahed Yañez Globulin (S) [Mass/Vol] 3.2 g/dL Normal [facility] Comment on above: Performed By: #### C MP, BNP, HSTROPN ####[facility] Xyllfnrrkx[address] [place] [address]Dr. Nahed Yañez Glucose [Mass/Vol] 248 mg/dL Critically high 74-106 [facility] Comment on above: Performed By: #### C MP, BNP, HSTROPN ####[facility] Hxwmygalrc3[address] [place] [address]Dr. Nahed Yañez Potassium [Moles/Vol] 3.4 mmol/L Critically low 3.5-5.1 [facility] Comment on above: Performed By: #### C MP, BNP, HSTROPN ####[facility] Klfkumlecw[address] [place] [address]Dr. Rosemarielan Yañez Protein [Mass/Vol] 6.3 g/dL Critically low 6.4-8.2 [facility] Comment on above: Performed By: #### C MP, BNP, HSTROPN ####[facility] Vustatfqil[address] [place] [address]Dr. Nahed Yañez Sodium [Moles/Vol] 140 mmol/L Normal 136-145 [facility] Comment on above: Performed By: #### C MP, BNP, HSTROPN ####[facility] Rmvwksmnar6[address] [place], [place] [address]Gh. Nahed Yñaez Urea nitrogen [Mass/Vol] 18.0 mg/dL Normal 7.0-18.0 [facility] Comment on above: Performed By: #### C MP, BNP, HSTROPN ####[facility] Xomumrgyjv9951 [place], [place] [address]Zg. Nahed Yañez Urea nitrogen/Creatinine [Mass ratio] 14.4 mg/mg Normal [facility] Comment on above: Performed By: #### C MP, BNP, HSTROPN ####[facility] Ecljjxapwq35[address] [place], [place] [address]Aw. Nahed Yañez PROTHROMBIN TIMEon 2 INR Coag (PPP) [Relative time] 1.06 {INR} Normal 0.91-1.16 [facility] Comment on above: Order Comment: No: [...] 1995;[id number]. Performed By: #### 5 6101 #### [facility] [address] [facility] [address] PT Coag (PPP) [Time] 13.8 s Normal 12.3-14.8 [facility] Comment on above: Order Comment: No: D o not add to previous draw Result Comment: ALL RESULTS MUST BE INTERPRETED WITH RESPECT TO BLOOD DRAWING ARTIFACT OR DILUTION ERROR OF ANTICOAGULANT AT THE TIME OF SAMPLING. Performed By: #### 5 6101 #### [facility] [address] [place] [address], [facility] TROPONIN, HIGH SENSITIVITYon 11-01-2021 HSTROP 1684.4 pg/mL Critically high 4.0-51.3 [facility] Comment on above: Result Comment: CUT- OFF POINTS HAVE BEEN ESTABLISHED BASED ON THE FOURTH UNIVERSAL DEFINITIONS OF MYOCARDIALINFARCTION. THE UPPER REFERENCE LIMIT (URL) OF TROPONIN, DEFINED THE 99TH PERCENTILE OFcTnI DISTRIBUTION IN A REFERENCE POPULATION, HAS BEEN CONFIRMED THE DECISION THRESHOLDFOR [place] DIAGNOSIS. Performed By: #### C MP, BNP, HSTROPN ####[facility] Rxmxxzxuhc[address] [place] [address]DrShaun Yañez TROPONIN-Ion 11-01-2021 Troponin I.cardiac [Mass/Vol] 0.22 ng/mL Critically high 0.00-0.04 [facility] Comment on above: Order Comment: No: D o not add to previous draw Result Comment: M-TR OPONIN INITIAL CRITICAL HIGH; RESPUN AND RETESTED M-CRITICAL RESULT(S) REVIEWED, CALLED TO AND READ BACK BY Kathy Suárez RN at 2205. REFERENCE RANGES: 0.00 - 0.04 ng/ml NORMAL 0.05 - 0.50 ng/ml INDETERMINATE > 0.50 ng/ml CONSISTENT WITH AN M.I. Performed By: #### 0 0121, 32605, 73853 #### [facility] [address] [place] [address], [facility] UFH HEPARIN ASSAYon 11-02-19 22 UNFRACTIONATED HEPARIN 0.55 IU/mL Normal 0.30-0.70 Th e [facility] Comment on above: Result Comment: Clare roxaban and Apixaban will interfere with the anti Xa assay used to monitor UFH and LMWH. Performed By: #### 3 5200, [id number] #### [facility] [address] [place] [address], [facility] BLOOD GASES BTYon 10-31-2021 02 MODE ROOM AIR Normal [facility] Comment on above: Performed By: #### A BG ####[facility] Jquzsnskcj[address] [place] [address]Dr. Naehd Yañez ALLENS TEST Positive Normal [facility] Comment on above: Performed By: #### A BG ####[facility] Ashewvbesh[address] [place] [address]Dr. Nahed Yañez Base excess Calc (Bld) [Moles/Vol] 3.5 mmol/L Critically high -2.0-2.0 [facility] Comment on above: Performed By: #### A BG ####[facility] Sqsinjrxve[address] [place], [place] [address]Dr. Nahed Yañez BIPAP PRESSURE Normal [facility] Comment on above: Performed By: #### A BG ####[facility] Jghvyonhqh[address] [place], [place] [address]Dr. Nahed Yañez CO2 [Moles/Vol] 56.3 mmol/L Critically high 23.0-28.0 [facility] Comment on above: Performed By: #### A BG ####[facility] Uvjpuqoztz[address] [place], [place] [address]Dr. Nahed Yañez CPAP Normal [facility] Comment on above: Performed By: #### A BG ####[facility] Nzhydhyhgi[address] [place], [place] [address]Dr. Nahed Yañez FIO2 Normal [facility] Comment on above: Performed By: #### A BG ####[facility] Yhujmmlslx[address] [place], [place] [address]Dr. Nahed Yañez HCO3 (Bld) [Moles/Vol] 26.8 mmol/L Critically high 22.0-26 .0 [facility] Comment on above: Performed By: #### A BG ####[facility] Ickbtximyh[address] [place], [place] [address]Dr. Nahed Yañez LPM Normal [facility] Comment on above: Performed By: #### A BG ####[facility] Anupkwdqma[address] [place] [address]Dr. Nahed Yañez MINUTE VOLUME Normal [facility] Comment on above: Performed By: #### A BG ####[facility] Axvnkxjzlx5486 [place] [address]Dr. Nahed Yañez Oxygen (Bld) [Partial pressure] 51.8 mm[Hg] Critically low 80.0-100.0 [facility] Comment on above: Performed By: #### A BG ####[facility] Qksavxtnlr6[address] [place], [place] [address]Dr. Nahed Yañez Oxygen saturation in Blood 86.3 % Critically low 95.0-100.0 [facility] Comment on above: Performed By: #### A BG ####[facility] Xtbvwbffpd[address] [place], [place] [address]Dr. Nahed Yañez PCO2 43.8 mmHg Normal 35.0-45.0 [facility] Comment on above: Performed By: #### A BG ####[facility] Nkfjdzvhoy[address] [place], [place] [address]Dr. Nahed Yañez [facility] Comment on above: Performed By: #### A BG ####[facility] Pkgyfptfky[address] [place], [place] [address]Dr. Nahed Yañez pH (Bld) 7.415 [pH] Normal 7.350-7.450 [facility] Comment on above: Performed By: #### A BG ####[facility] Podwcnclxs[address] [place], [place] [address]Dr. Nahed Yañez PIP Normal [facility] Comment on above: Performed By: #### A BG ####[facility] Ivwrqimjwj74[address] [place], [place] [address]Dr. Nahed Yañez PS Normal [facility] Comment on above: Performed By: #### A BG ####[facility] Yfnrhxzfip5336 [place] [address]Dr. Nahed Yañez PUNCTURE SITE RR Normal [facility] Comment on above: Performed By: #### A BG ####[facility] Bkautaukia[address] [place] [address]Dr. Nahed Yañez RATE Normal [facility] Comment on above: Performed By: #### A BG ####[facility] Bzomuripos[address] [place] [address]Dr. Nahed Yañez VENT MODE Normal [facility] Comment on above: Performed By: #### A BG ####[facility] Cctqqmfjan55[address] [place] [address]Dr. Nahed Yañez VT Normal [facility] Comment on above: Performed By: #### A BG ####[facility] Fjepursjow67[address] [place] [address]Dr. Nahed Yañez BNPon 2 Natriuretic peptide B (Bld) [Mass/Vol] 38591.0 pg/mL Critically high <=900.0 [facility] Comment on above: Performed By: #### T 4, TSH, BNP, CMADM ####[facility] Rglvhzlftx[address] [place], [place] [address]Dr. Nahed Yañez CARDIAC FRANCISCO 3-6on 2 CK [Catalytic activity/Vol] 91 U/L Normal 26-192 [facility] Comment on above: Performed By: #### C MREP ####[facility] Iuwxqorrnt8[address] [place], [place] [address]Dr. Nahed Yañez CK.MB [Mass/Vol] 7.32 ng/mL Critically high <=3.60 [facility] Comment on above: Result Comment: test repeated critical value verified Performed By: #### C MREP ####[facility] Ennlpbwjhs[address] [place], [place] [address]Dr. Nahed Yañez HSTROP 2823.1 pg/mL Critically high 4.0-51.[address] [facility] Comment on above: Result Comment: CUT- OFF POINTS HAVE BEEN ESTABLISHED BASED ON THE FOURTH UNIVERSAL DEFINITIONS OF MYOCARDIALINFARCTION. THE UPPER REFERENCE LIMIT (URL) OF TROPONIN, DEFINED THE 99TH PERCENTILE OFcTnI DISTRIBUTION IN A REFERENCE POPULATION, HAS BEEN CONFIRMED THE DECISION THRESHOLDFOR [place] DIAGNOSIS.test repeated critical value verified Performed By: #### C MREP ####[facility] Vikuajkpjp[address] [place] [id number]. Nahed Yañez CARDIAC FRANCISCO ADMITon 022 CK [Catalytic activity/Vol] 85 U/L Normal 26-192 [facility] Comment on above: Performed By: #### T 4, TSH, BNP, CMADM ####[facility] Xkrcflssjr1594 [place] [address]Dr. Rosemarieashley Yañez CK.MB [Mass/Vol] 6.44 ng/mL Critically high <=3.60 [facility] Comment on above: Performed By: #### T 4, TSH, BNP, CMADM ####[facility] Puqxjxpdfs7354 [place] [address]Dr. Nahed Otilio HSTROP 3194.8 pg/mL Critically high 4.0-51.[address] [facility] Comment on above: Result Comment: CUT- OFF POINTS HAVE BEEN ESTABLISHED BASED ON THE FOURTH UNIVERSAL DEFINITIONS OF MYOCARDIALINFARCTION. THE UPPER REFERENCE LIMIT (URL) OF TROPONIN, DEFINED THE 99TH PERCENTILE OFcTnI DISTRIBUTION IN A REFERENCE POPULATION, HAS BEEN CONFIRMED THE DECISION THRESHOLDFOR [place] DIAGNOSIS. Performed By: #### T 4, TSH, BNP, CMADM ####[facility] Abekavxzbf45[address] [place] [address]Dr. Rosemarieashley Yañez ANDRE 57 ng/mL Normal 9-82 [facility] Comment on above: Performed By: #### T 4, TSH, BNP, CMADM ####[facility] Fugaokvucm[address] [place] [address]Dr. Nahed Otilio CBC AUTO DIFFon 10-31-2021 BASO # 0.0 103/ul Normal 0.0-0.1 [facility] Comment on above: Performed By: #### C BC ####[facility] Syupqegjgo[address] [place] [address]Dr. Rosemarieashley Yañez Basophils/100 WBC (Bld) 0.2 % Normal 0.2-2.0 [facility] Comment on above: Performed By: #### C BC ####[facility] Vksgichsaj29[address] [place] [address]Dr. Nahed Yañez EO # 0.0 103/ul Normal 0.0-0.7 [facility] Comment on above: Performed By: #### C BC ####[facility] Pdxxguseua4771 [place] [address]Dr. Nahed Yañez Eosinophils/100 WBC (Bld) 0.1 % Critically low 0.9-7.0 [facility] Comment on above: Performed By: #### C BC ####[facility] Gjofvnfhyk62[address] [place], [place] [address]Dr. Nahed Otilio Erythrocyte distribution width (RBC) [Ratio] 14.8 % Normal 11.0-15.0 [facility] Comment on above: Performed By: #### C BC ####[facility] Whecmgoety9[address] [place], [place] [address]Dr. Nahed Yañez Hematocrit (Bld) [Volume fraction] 44.4 % Normal 36.0-48.0 [facility] Comment on above: Performed By: #### C BC ####[facility] Dlcsyflgyt8[address] [place], [place] [address]Dr. Nahed Yañez Hemoglobin (Bld) [Mass/Vol] 14.1 g/dL Normal 12.0-16.0 [facility] Comment on above: Performed By: #### C BC ####[facility] Htesvyznop9[address] [place], [place] [address]Dr. Rosemarieashley Otilio IG # 0.04 10e3/ul Critically high 0.00-0.03 [facility] Comment on above: Performed By: #### C BC ####[facility] Zvwuijnyjh9[address] [place], [place] [address]Dr. Nahed aYñez IG % 0.3 % Normal 0.0-0.5 [facility] Comment on above: Performed By: #### C BC ####[facility] Durghnhwki2[address] [place], [place] [address]Dr. Nahed Yañez LYMPH # 1.4 103/ul Normal 1.2-3.8 [facility] Comment on above: Performed By: #### C BC ####[facility] Fkdbncjzhk8[address] [place], [place] [address]Dr. Nahed Yañez Lymphocytes/100 WBC (Bld) 10.4 % Critically low 20.5-60.0 [facility] Comment on above: Performed By: #### C BC ####[facility] Nbwtobxzkv1406 [place] [address]DrShaun Yañez MANUAL DIFF REQ NO Normal [facility] Comment on above: Performed By: #### C BC ####[facility] Gvyojqdsyw9003 [place] [address]DrShaun Yañez MCH (RBC) [Entitic mass] 28.1 pg Normal 26.7-34.0 [facility] Comment on above: Performed By: #### C BC ####[facility] Gqhhauopnu69[address] [place], [place] [address]DrShaun Yañez MCHC (RBC) [Mass/Vol] 31.8 g/dL Normal 29.9-35.2 [facility] Comment on above: Performed By: #### C BC ####[facility] Iguqtpfues[address] [place], [place] [address]DrShaun Yañez MCV (RBC) [Entitic vol] 88.4 fL Normal 81.0-99.0 [facility] Comment on above: Performed By: #### C BC ####[facility] Wvzbvdzuvb[address] [place], [place] [address]DrShaun Yañez MONO # 0.8 103/ul Normal 0.3-0.8 [facility] Comment on above: Performed By: #### C BC ####[facility] Aamuxmjeeg35[address] [place], [place] [address]DrShaun Yañez Monocytes/100 WBC (Bld) 6.0 % Normal 1.7-12.0 [facility] Comment on above: Performed By: #### C BC ####[facility] Fqvopviywi39[address] [place], [place] [address]DrShaun Yañez NEUT # 10.9 103/ul Critically high 1.4-6.5 [facility] Comment on above: Performed By: #### C BC ####[facility] Xmlxrbkaol45[address] [place], [place] [address]DrShaun Yañez Neutrophils/100 WBC (Bld) 83.0 % Critically high 43.0-75.0 [facility] Comment on above: Performed By: #### C BC ####[facility] Eusmjksvfe77[address] [place] [address]Dr. Nahed Yañez Platelet mean volume (Bld) [Entitic vol] 10.8 fL Normal 9.5-13.5 [facility] Comment on above: Performed By: #### C BC ####[facility] Zucxkrgdnj[address] [place], [place] [address]Dr. Rosemarieashley Yañez PLT 402 103/ul Normal 150-450 [facility] Comment on above: Performed By: #### C BC ####[facility] Dcmjllhxnb08[address] [place], [place] [address]Dr. Rosemarieashley Yañez RBC 5.02 106/ul Normal 4.20-5.40 [facility] Comment on above: Performed By: #### C BC ####[facility] Isaueloqdr[address] [place], [place] [address]Dr. Nahed Yañez WBC 13.1 103/ul Critically high 4.0-11.0 [facility] Comment on above: Performed By: #### C BC ####[facility] Squbxolilc[address] [place], [place] [address]Dr. Nahed Yañez CTA CHEST WO W CONon 022 CTA CHEST WO W CON Normal [facility] CULTURE BLOODon 10-31-2021 Microscopic examination of blood, culture Culture Observations: NO GROWTH AT 5 DAYS. Normal [facility] Comment on above: Performed By: #### B LDCX2 ####[facility] Rjojavzbas[address] [place], [place] [address]Dr. Nahed Yañez Microscopic examination of blood, culture Culture Observations: NO GROWTH AT 5 DAYS. Normal [facility] Comment on above: Performed By: #### B LDCX1 ####[facility] Sdxwzosqpu[address] [place], [place] [address]Dr. Nahed Yañez Covid-19 PCR (CVDTB)on 10-13 SARS-CoV-2 (COVID-19) RNA MIRNA+probe Ql (Unsp spec) Not detected Normal NOT DETECTED [facility] Comment on above: Result Comment: When [...] for this test is supported by the [employer] Professor of Health and Human Service's declaration that [...] no longer be used). Performed By: #### [facility] ####[facility] Yjivgyfmcl[address] [place], [place] [address]Dr. Nahed Yañez ECHO LIMITED STUDYon 022 ECHO LIMITED STUDY Normal [facility] ER URINE PROFILEon 2 Bilirubin Ql (U) SMALL Abnormal NEGATIVE [facility] Comment on above: Performed By: #### YARELIS DOVE ####[facility] Rsemvlryen9034[address] [place], [place] [address]Dr. Nahed Yañez Clarity (U) CLEAR Normal CLEAR [facility] Comment on above: Performed By: #### YARELIS DOVE ####[facility] Kuwhkhbiyx93[address] [place], [place] [address]Dr. Nahed Yañez Color (U) YELLOW Normal YELLOW [facility] Comment on above: Performed By: #### YARELIS DOVE ####[facility] Jcripfvxlu9[address] [place], [place] [address]Dr. Nahed Yañez ERUAHD A micrscopic examination will be performed if indicated. Normal [facility] Comment on above: Performed By: #### YARELIS DOVE ####[facility] Jgenwhzkgc0[address] [place], [place] [address]Dr. Nahed Yañez Glucose Ql (U) Negative Normal NEGATIVE [facility] Comment on above: Performed By: #### Isidoro ALCARAZ UMICRO ####[facility] Rltavontpq2562[address] [place], [place] [address]Dr. Nahed Yañez Hemoglobin Ql (U) TRACE-INTACT Abnormal NEGATIVE [facility] Comment on above: Performed By: #### Isidoro ALCARAZ UMICRO ####[facility] Siizpmfcmp57[address] [place], [place] [address]Dr. Nahed Yañez Ketones Ql (U) 15 mg/dl Abnormal NEGATIVE [facility] Comment on above: Performed By: #### Isidoro ALCARAZ UMICRO ####[facility] Xfkqfnhobg25[address] [place], [place] [address]Dr. Nahed Yañez LEUKOCYTES TRACE Abnormal NEGATIVE [facility] Comment on above: Performed By: #### Isidoro ALCARAZ UMICRO ####[facility] Avxbvvwxut527[address] [place], [place] [address]Dr. Nahed Yañez Nitrite Ql (U) Negative Normal NEGATIVE [facility] Comment on above: Performed By: #### Isidoro ALCARAZ UMICRO ####[facility] Fwkkpoknos05[address] [place], [place] [address]Dr. Nahed Yañez pH (U) 6.5 [pH] Normal 5-9 [facility] Comment on above: Performed By: #### Isidoro ALCARAZ UMICRO ####[facility] Nvutrpfnog0[address] [place], [place] [address]Dr. Nahed Yañez Protein (U) [Mass/Vol] 30 mg/dL Abnormal NEGAT JOSEPHINE/ TRACE [facility] Comment on above: Performed By: #### Isidoro ALCARAZ UMICRO ####[facility] Lndqfryrli[address] [place], [place] [address]Dr. Nahed Yañez SPEC GRAVITY 1.025 Normal 1.005-<=1.02 5 [facility] Comment on above: Performed By: #### Isidoro ALCARAZ UMICRO ####[facility] Unfouuurgu[address] [place], [place] [address]Dr. Nahed Yañez UR MICRO IND INDICATED Normal [facility] Comment on above: Performed By: #### YAREILS DOVE ####[facility] Sfepnxoewl[address] [place], [place] [address]Dr. Nahed Yañez Urobilinogen Qn (U) 0.2 {Alem'U}/dL Normal 0.2 - 1. 0 [facility] Comment on above: Performed By: #### YARELIS DOVE ####[facility] [address]ttkgmvh[address] [place], [place] [address]Dr. Nahed Yañez INFLUENZA A AND B AGon 10-31 INFLUANEGH SEE BELOW Normal [facility] Comment on above: Result Comment: Nega tive for Flu A protein angiten. Infection due to Flu A cannot be ruled out. Flu A angiten in the sample may be below the detection limit of the test. Performed By: #### I NFLUAB ####[facility] Maspmgdnil[address] [place], [place] [address]Dr. Nahed Yañez INFLUBNEGH SEE BELOW Normal [facility] Comment on above: Result Comment: Nega tive for Flu B protein antigen. Infection due to Flu B cannot be ruled out. Flu B antigen in the sample may be below the detection limit of the test. Performed By: #### I NFLUAB ####[facility] Bxkckehbsd[address] [place], [place] [address]Dr. Nahed Yañez INFLUENZA A AG Negative Normal NEGATIVE SEE COMMENT [facility] Comment on above: Performed By: #### I NFLUAB ####[facility] Nhueduuqsw[address] [place], [place] [address]Dr. Nahed Yañez INFLUENZA B AG Negative Normal NEGATIVE SEE COMMENT [facility] Comment on above: Performed By: #### I NFLUAB ####[facility] Smptfomqwr5743[address] [place], [place] [address]Dr. Nahed Yañez INTERNAL CONTROLS Within Normal Limits Normal Wi thin Normal Limits [facility] Comment on above: Performed By: #### I NFLUAB ####[facility] Vbrwdwubfn[address] [place], [place] [address]Dr. Nahed Yañez LACTATE/LACTIC ACIDon 2021 Lactate [Moles/Vol] 1.3 mmol/L Normal 0.4-1.9 [facility] Comment on above: Performed By: #### L ACT ####[facility] Kkmscxqfdu8[address] [place], [place] [address]Dr. Nahed Yañez PROF 14(COMP METB)on 022 Albumin [Mass/Vol] 4.3 g/dL Normal 3.4-5.0 [facility] Comment on above: Performed By: #### C MP ####[facility] Zkigqsxorn36[address] [place], [place] [address]Dr. Nahed Yañez Albumin/Globulin [Mass ratio] 1.2 {ratio} Normal [facility] Comment on above: Performed By: #### C MP ####[facility] Xoqvdbtnjq0815[address] [place], [place] [address]Dr. Nahed Yañez ALP [Catalytic activity/Vol] 77 U/L Normal 46-116 [facility] Comment on above: Performed By: #### C MP ####[facility] Uxzrqrtmnc3839[address] [place], [place] [address]Dr. Nahed Yañez ALT [Catalytic activity/Vol] 25 U/L Normal 14-59 [facility] Comment on above: Performed By: #### C MP ####[facility] Jbkgcqjnuv[address] [place], [place] [address]Dr. Nahed Yañez Anion gap [Moles/Vol] 15.6 mmol/L Normal [facility] Comment on above: Performed By: #### C MP ####[facility] Gycepnohao0414[address] [place], [place] [address]Dr. Nahed Yañez AST [Catalytic activity/Vol] 26 U/L Normal 15-37 [facility] Comment on above: Performed By: #### C MP ####[facility] Hqulutwnsg3787[address] [place], [place] [address]Dr. Nahed Yañez Bilirubin [Mass/Vol] 0.6 mg/dL Normal 0.2-1.0 [facility] Comment on above: Performed By: #### C MP ####[facility] Usxjmfmnyw3561[address] [place], [place] [address]Dr. Nahed Yañez Calcium [Mass/Vol] 10.0 mg/dL Normal 8.5-10.1 [facility] Comment on above: Performed By: #### C MP ####[facility] [address]wq[address] [place] [address]Dr. Nahed Yañez Chloride [Moles/Vol] 101 mmol/L Normal 98-107 [facility] Comment on above: Performed By: #### C MP ####[facility] Ianfyhdeuk[address] [place] [address]Dr. Nahed Yañez CO2 [Moles/Vol] 29.0 mmol/L Normal 21.0-32.0 [facility] Comment on above: Performed By: #### C MP ####[facility] Xovsqppczf[address] [place], [place] [address]Dr. Nahed Yañez Creatinine [Mass/Vol] 0.89 mg/dL Normal 0.55-1.02 [facility] Comment on above: Performed By: #### C MP ####[facility] Lkipetjxiy3128[address] [place], [place] [address]Dr. Nahed Yañez EGFR-AF MOSOTHO >60 Normal >=60 [facility] Comment on above: Performed By: #### C MP ####[facility] Hutyxpqfuf6[address] [place], [place] [address]Dr. Nahed Yañez EGFR-NON AF MOSOTHO >60 Normal >=60 [facility] Comment on above: Performed By: #### C MP ####[facility] B[address]stgdrqj74[address] [place] [address]Dr. Nahed Yañez Globulin (S) [Mass/Vol] 3.7 g/dL Normal [facility] Comment on above: Performed By: #### C MP ####[facility] Kxqelgqxvy3523 [place] [address]Dr. Nahed Otilio Glucose [Mass/Vol] 182 mg/dL Critically high 74-106 [facility] Comment on above: Performed By: #### C MP ####[facility] Iqtfmdhhic86[address] [place] [address]Dr. Nahed Yañez Potassium [Moles/Vol] 3.6 mmol/L Normal 3.5-5.1 [facility] Comment on above: Performed By: #### C MP ####[facility] Iomvfqpbba7132 [place] [address]Dr. Nahed Yañez Protein [Mass/Vol] 8.0 g/dL Normal 6.4-8.2 [facility] Comment on above: Performed By: #### C MP ####[facility] Joostzgldw450[address] [place] [address]Dr. Nahed Yañez Sodium [Moles/Vol] 142 mmol/L Normal 136-145 [facility] Comment on above: Performed By: #### C MP ####[facility] Icfjytpfoq4353 [place] [address]Dr. Nahed Yañez Urea nitrogen [Mass/Vol] 8.0 mg/dL Normal 7.0-18.0 [facility] Comment on above: Performed By: #### C MP ####[facility] Azzzpvfngq66[address] [place], [place] [address]Dr. Nahed Yañez Urea nitrogen/Creatinine [Mass ratio] 9.0 mg/mg Normal [facility] Comment on above: Performed By: #### C MP ####[facility] Roralenull[address] [place] [address]Dr. Nahed Yañez T4on 10-31-2021 T4 [Mass/Vol] 8.10 ug/dL Normal 4.80-13.90 [facility] Comment on above: Performed By: #### T 4, TSH, BNP, CMADM ####[facility] Ugzfqjailm[address] [place] [address]Dr. Nahed Yañez TSHon 10-31-2021 TSH 1.088 uIU/mL Normal 0.358-3.740 [facility] Comment on above: Performed By: #### T 4, TSH, BNP, CMADM ####[facility] Ecqsmnuipv[address] [place] [address]Dr. Nahed Yañez URINE MICROSCOPIC ONLYon BACTERIA TRACE Abnormal NONE SEEN [facility] Comment on above: Performed By: #### E YARELIS ALCARAZ ####[facility] Bnuljuyldv[address] [place] [address]Dr. Nahed Yañez Bacteria identified Cx Nom (U) NOT INDICATED Normal [facility] Comment on above: Performed By: #### YARELIS DOVE ####[facility] Fczmvritsn22[address] [place], [place] [address]Dr. Nahed Yañez CAST NONE SEEN Normal NONE SEEN [facility] Comment on above: Performed By: #### NUNU DOVERO ####[facility] Hrfiuybuln01[address] [place], [place] [address]Dr. Nahed Yañez Crystals LM Nom (Urine sed) NONE SEEN Normal NONE SEEN [facility] Comment on above: Performed By: #### YARELIS DOVE ####[facility] Wmhfkryfue5[address] [place], [place] [address]Dr. aNhed Yañez Epithelial cells LM Ql (Urine sed) MODERATE Abnormal NONE SEEN /RARE [facility] Comment on above: Performed By: #### NUNU DOVERO ####[facility] Zediwshfps[address] [place], [place] [address]Dr. Nahed Yañez MUCOUS SMALL Abnormal NONE SEEN [facility] Comment on above: Performed By: #### NUNU DOVERO ####[facility] Ntziczsyjg[address] [place], [place] [address]Dr. Nahed Yañez RBC 2-5 Abnormal 0-2 [facility] Comment on above: Performed By: #### NUNU DOVERO ####[facility] Ceuruvckau[address] [place], [place] [address]Dr. Nahed Yañez WBC 2-5 Abnormal NONE SEEN [facility] Comment on above: Performed By: #### NUNU DOVERO ####[facility] Mdyndwbyny[address] [place], [place] [address]Dr. Nahed Yañez XR CHEST 2 Von 10-31-2021 XR CHEST 2 V Normal [facility] CULTURE URINEon 10-30-2021 CULTURE URINE Culture Observations : MODERATE GROWTH OF MIXED GENITAL MIGUEL. NO POTENTIAL PATHOGENS SEEN. Normal [facility] Comment on above: Performed By: #### U RCX ####[facility] [address] [place] [id number]. Nahed Yañez US JESSEE DOP LEG BILon US JESSEE DOP LEG MOHAN Normal [facility] CARDIAC FRANCISCO ADMITon 022 CK [Catalytic activity/Vol] 16 U/L Critically low 26-192 [facility] Comment on above: Performed By: #### C RENZO, CMADM ####[facility] Emfdapvbnv33[address] [place] [address]Dr. Nahed Yañez CK.MB [Mass/Vol] 0.56 ng/mL Normal <=3.60 [facility] Comment on above: Performed By: #### C RENZO, ERICK ####[facility] Nfposxsari86[address] [place] [address]Dr. Nahed Yañez HSTROP 44.3 pg/mL Normal 4.0-51.3 [facility] Comment on above: Result Comment: CUT- OFF POINTS HAVE BEEN ESTABLISHED BASED ON THE FOURTH UNIVERSAL DEFINITIONS OF MYOCARDIALINFARCTION. THE UPPER REFERENCE LIMIT (URL) OF TROPONIN, DEFINED THE 99TH PERCENTILE OFcTnI DISTRIBUTION IN A REFERENCE POPULATION, HAS BEEN CONFIRMED THE DECISION THRESHOLDFOR [place] DIAGNOSIS. Performed By: #### C ERICK MULLER ####[facility] Kofjtxlnxp[address] [place] [address]Dr. Nahed Yañez ANDRE 42 ng/mL Normal 9-82 [facility] Comment on above: Performed By: #### C RENZO, GRISELDADM ####[facility] Qojwmzsyyc9740 [place] [address]Dr. Nahed Yañez CBC AUTO DIFFon 09-07-2021 BASO # 0.0 103/ul Normal 0.0-0.1 [facility] Comment on above: Performed By: #### C BC ####[facility] Khkwygqnrm9041 [place] [address]Dr. Nahed Yañez Basophils/100 WBC (Bld) 0.4 % Normal 0.2-2.0 [facility] Comment on above: Performed By: #### C BC ####[facility] Bzjnyhbcwh4238 [place] [address]Dr. Nahed Yañez EO # 0.2 103/ul Normal 0.0-0.7 [facility] Comment on above: Performed By: #### C BC ####[facility] Rqbexrajjf8704 [place] [address]Dr. Nahed Yañez Eosinophils/100 WBC (Bld) 2.4 % Normal 0.9-7.0 [facility] Comment on above: Performed By: #### C BC ####[facility] Rjoslspihr9732 [place] [address]Dr. Nahed Yañez Erythrocyte distribution width (RBC) [Ratio] 15.1 % Critically high 11.0-15.0 [facility] Comment on above: Performed By: #### C BC ####[facility] Upmlbwyipw06[address] [place], [place] [address]Dr. Nahed Yañez Hematocrit (Bld) [Volume fraction] 42.6 % Normal 36.0-48.0 [facility] Comment on above: Performed By: #### C BC ####[facility] Vitjmttnrz[address] [place], [place] [address]Dr. Nahed Yañez Hemoglobin (Bld) [Mass/Vol] 13.4 g/dL Normal 12.0-16.0 [facility] Comment on above: Performed By: #### C BC ####[facility] Bqyyrsyiub[address] [place], [place] [address]Dr. Nahed Yañez IG # 0.33 10e3/ul Critically high 0.00-0.03 [facility] Comment on above: Performed By: #### C BC ####[facility] Hxgvpnxvtn5174[address] [place], [place] [address]Dr. Nahed Yañez IG % 3.9 % Critically high 0.0-0.5 [facility] Comment on above: Performed By: #### C BC ####[facility] Qfoqducmjj0612[address] [place], [place] [address]Dr. Nahed Yañez LYMPH # 2.6 103/ul Normal 1.2-3.8 [facility] Comment on above: Performed By: #### C BC ####[facility] Ixluoskxpz6447[address] [place], [place] [address]Dr. Nahed Yañez Lymphocytes/100 WBC (Bld) 30.3 % Normal 20.5-60.0 [facility] Comment on above: Performed By: #### C BC ####[facility] Alicpfsmsh4873 [place] [address]DrShaun Yañez MANUAL DIFF REQ NO Normal [facility] Comment on above: Performed By: #### C BC ####[facility] Yhnusivqml9327 [place] [address]Dr. Nahed Yañez MCH (RBC) [Entitic mass] 28.6 pg Normal 26.7-34.0 [facility] Comment on above: Performed By: #### C BC ####[facility] Wfqrnckpia9[address] [place], [place] [address]Dr. Nahed Yañez MCHC (RBC) [Mass/Vol] 31.5 g/dL Normal 29.9-35.2 [facility] Comment on above: Performed By: #### C BC ####[facility] Tylytyfbxw6374[address] [place], [place] [address]DrShaun Yañez MCV (RBC) [Entitic vol] 90.8 fL Normal 81.0-99.0 [facility] Comment on above: Performed By: #### C BC ####[facility] Otzyonrczj[address] [place], [place] [address]DrShaun Yañez MONO # 0.7 103/ul Normal 0.3-0.8 [facility] Comment on above: Performed By: #### C BC ####[facility] Djdcpbnyiz1982[address] [place], [place] [address]DrShaun Yañez Monocytes/100 WBC (Bld) 8.0 % Normal 1.7-12.0 [facility] Comment on above: Performed By: #### C BC ####[facility] Pzobyqstps65[address] [place], [place] [address]DrShaun Yañez NEUT # 4.7 103/ul Normal 1.4-6.5 [facility] Comment on above: Performed By: #### C BC ####[facility] Fvaopkdkjy6829[address] [place], [place] [address]DrShaun Yañez Neutrophils/100 WBC (Bld) 55.0 % Normal 43.0-75.0 [facility] Comment on above: Performed By: #### C BC ####[facility] Srxbozcmxm2080 [place] [address]DrShaun Yañez Platelet mean volume (Bld) [Entitic vol] 8.9 fL Critically low 9.5-13.5 [facility] Comment on above: Performed By: #### C BC ####[facility] Ptxgwxpssy9414 [place] [address]DrShaun Yañez PLT 270 103/ul Normal 150-450 [facility] Comment on above: Performed By: #### C BC ####[facility] Ohgjsjjwak7709[address] [place], [place] [address]Dr. Nahed Yañez RBC 4.69 106/ul Normal 4.20-5.40 [facility] Comment on above: Performed By: #### C BC ####[facility] Iusgijugtm9541[address] [place], [place] [address]DrShaun Yañez WBC 8.5 103/ul Normal 4.0-11.0 [facility] Comment on above: Performed By: #### C BC ####[facility] Nmwsmalkfm032[address] [place], [place] [address]DrShaun Yañez PROF 14(COMP METB)on 022 Albumin [Mass/Vol] 2.7 g/dL Critically low 3.4-5.0 [facility] Comment on above: Performed By: #### C ERICK MULLER ####[facility] Avsxiqksxl1766[address] [place], [place] [address]DrShaun Yañez Albumin/Globulin [Mass ratio] 0.8 {ratio} Normal [facility] Comment on above: Performed By: #### C ERICK MULLER ####[facility] Doqombjppv[address] [place], [place] [address]DrShaun Yañez ALP [Catalytic activity/Vol] 65 U/L Normal 46-116 [facility] Comment on above: Performed By: #### C ERICK MULLER ####[facility] Fxatlbwmza9617[address] [place], [place] [address]DrShaun Yañez ALT [Catalytic activity/Vol] 27 U/L Normal 14-59 [facility] Comment on above: Performed By: #### C ERICK MULLER ####[facility] Zstecujbbf7244[address] [place], [place] [address]Dr. Nahed Yañez Anion gap [Moles/Vol] 10.3 mmol/L Normal [facility] Comment on above: Performed By: #### C ERICK MULLER ####[facility] Rngauybohu7112[address] [place], [place] [address]Dr. Nahed Yañez AST [Catalytic activity/Vol] 11 U/L Critically low 15-37 [facility] Comment on above: Performed By: #### C ERICK MULLER ####[facility] Iounppiwco65[address] [place], [place] [address]Dr. Nahed Yañez Bilirubin [Mass/Vol] 0.3 mg/dL Normal 0.2-1.0 [facility] Comment on above: Performed By: #### C ERICK MULLER ####[facility] Ghcsesxqhz2838[address] [place], [place] [address]Dr. Nahed Yañez Calcium [Mass/Vol] 8.1 mg/dL Critically low 8.5-10.1 [facility] Comment on above: Performed By: #### C ERICK MULLER ####[facility] Muxqamclar9617[address] [place], [place] [address]Dr. Nahed Yañez Chloride [Moles/Vol] 98 mmol/L Normal 98-107 [facility] Comment on above: Performed By: #### C ERICK MULLER ####[facility] Snlhnqqfth6[address] [place], [place] [address]Dr. Nahed Yañez CO2 [Moles/Vol] 32.5 mmol/L Critically high 21.0-32.0 [facility] Comment on above: Performed By: #### C ERICK MULLER ####[facility] Mpnviabjgd[address]62[address] [place], [place] [address]Dr. Nahed Yañez Creatinine [Mass/Vol] 0.94 mg/dL Normal 0.55-1.02 [facility] Comment on above: Performed By: #### C ERICK MULLER ####[facility] Haussxwqbh7[address] [place] [address]Dr. Nahed Yañez EGFR-AF MOSOTHO >60 Normal >=60 [facility] Comment on above: Performed By: #### C RENZO, CMAJOSE ####[facility] Lcadertrvx4538 [place] [address]Dr. Nahed Yañez EGFR-NON AF MOSOTHO >60 Normal >=60 [facility] Comment on above: Performed By: #### C RENZO, CMAJOSE ####[facility] Eyjwmbxyyv8848 [place] [address]Dr. Nahed Yañez Globulin (S) [Mass/Vol] 3.2 g/dL Normal [facility] Comment on above: Performed By: #### C RENZO, CMAJOSE ####[facility] Ylemhhcnvl4102 [place] [address]Dr. Nahed Yañez Glucose [Mass/Vol] 123 mg/dL Critically high 74-106 [facility] Comment on above: Performed By: #### C RENZO, CMAJOSE ####[facility] Eakcadqbmg5030 [place] [address]Dr. Nahed Yaeñz Potassium [Moles/Vol] 3.8 mmol/L Normal 3.5-5.1 [facility] Comment on above: Performed By: #### C RENZO, CMADM ####[facility] Aesdgmiiqw5814 [place] [address]Dr. Nahed Yañez Protein [Mass/Vol] 5.9 g/dL Critically low 6.1-8.2 [facility] Comment on above: Performed By: #### C RENZO, CMADM ####[facility] Bulhwflsyo3428 [place] [address]Dr. Nahed Yañez Sodium [Moles/Vol] 137 mmol/L Normal 136-145 [facility] Comment on above: Performed By: #### C RENZO, CMADM ####[facility] Oahsvnfvzm8064 [place] [address]Dr. Nahed Yañez Urea nitrogen [Mass/Vol] 20.0 mg/dL Critically high 7.0-18.0 [facility] Comment on above: Performed By: #### C RENZO, CMADM ####[facility] Aortzygbqt3194[address] [place], [place] [address]Dr. Nahed Yañez Urea nitrogen/Creatinine [Mass ratio] 21.3 mg/mg Normal [facility] Comment on above: Performed By: #### C MP, CMADM ####[facility] Weafitmepe[address] [place], [place] [address]Dr. Nahed Yañez BNPon 09-06-2021 Natriuretic peptide B (Bld) [Mass/Vol] 923.0 pg/mL Critically high <=900.0 [facility] Comment on above: Performed By: #### B MP, BNP, HSTROPN ####[facility] Sbezvxeswc5[address] [place], [place] [address]Dr. Nahed Yañez CBC AUTO DIFFon 09-06-2021 BASO # 0.1 103/ul Normal 0.0-0.1 [facility] Comment on above: Performed By: #### C BC ####[facility] Dmpnjyfulu23[address] [place], [place] [address]Dr. Nahed Yañez Basophils/100 WBC (Bld) 0.6 % Normal 0.2-2.0 [facility] Comment on above: Performed By: #### C BC ####[facility] Dokextdaae25[address] [place], [place] [address]Dr. Nahed Yañez EO # 0.3 103/ul Normal 0.0-0.7 [facility] Comment on above: Performed By: #### C BC ####[facility] Niletczyji7[address] [place], [place] [address]Dr. Nahed Yañez Eosinophils/100 WBC (Bld) 3.0 % Normal 0.9-7.0 [facility] Comment on above: Performed By: #### C BC ####[facility] Nawcccmrbt[address] [place], [place] [address]Dr. Naehd Yañez Erythrocyte distribution width (RBC) [Ratio] 15.0 % Normal 11.0-15.0 [facility] Comment on above: Performed By: #### C BC ####[facility] Dkmquhpxgx7[address] [place], [place] [address]Dr. Nahed Yañez Hematocrit (Bld) [Volume fraction] 48.1 % Critically high 36.0-48.0 [facility] Comment on above: Performed By: #### C BC ####[facility] Cyajlhzjqs71[address] [place] [address]Dr. Nahed Yañez Hemoglobin (Bld) [Mass/Vol] 15.5 g/dL Normal 12.0-16.0 [facility] Comment on above: Result Comment: delt a check called to Manisha WALKER Performed By: #### C BC ####[facility] Rejivvwnsc6441 [place] [address]Dr. Nahed Yañez IG # 0.46 10e3/ul Critically high 0.00-0.03 [facility] Comment on above: Performed By: #### C BC ####[facility] Wqggysqakl9660 [place] [address]Dr. Nahed Yañez IG % 4.2 % Critically high 0.0-0.5 [facility] Comment on above: Performed By: #### C BC ####[facility] Axaggdkjis6859 [place] [address]Dr. Nahed Yañez LYMPH # 2.2 103/ul Normal 1.2-3.8 [facility] Comment on above: Performed By: #### C BC ####[facility] Wzntadkvxa7460 [place] [address]Dr. Nahed Yañez Lymphocytes/100 WBC (Bld) 20.6 % Normal 20.5-60.0 [facility] Comment on above: Performed By: #### C BC ####[facility] Qsxfjvamvk7244 [place] [address]Dr. Nahed Yañez MANUAL DIFF REQ NO Normal [facility] Comment on above: Performed By: #### C BC ####[facility] Gemnsklpxz0591 [place] [address]Dr. Nahed Yañez MCH (RBC) [Entitic mass] 28.2 pg Normal 26.7-34.0 [facility] Comment on above: Performed By: #### C BC ####[facility] Bfutlpzxup3398 [place] [id number]. Nahed Yañez MCHC (RBC) [Mass/Vol] 32.2 g/dL Normal 29.9-35.2 [facility] Comment on above: Performed By: #### C BC ####[facility] Cufzkqoehy1891 [place] [id number]. Nahed Yañez MCV (RBC) [Entitic vol] 87.5 fL Normal 81.0-99.0 [facility] Comment on above: Performed By: #### C BC ####[facility] Cbdkxaolti8223 [place] [address]Dr. Nahed Yañez MONO # 0.7 103/ul Normal 0.3-0.8 [facility] Comment on above: Performed By: #### C BC ####[facility] Raetuzllhy3615 [place] [address]Dr. Nahed Yañez Monocytes/100 WBC (Bld) 6.4 % Normal 1.7-12.0 [facility] Comment on above: Performed By: #### C BC ####[facility] Jfwykphxgn5143 [place] [id number]. Nahed Yañez NEUT # 7.1 103/ul Critically high 1.4-6.5 [facility] Comment on above: Performed By: #### C BC ####[facility] [address]pc[address] [place] [id number]. Nahed Yañez Neutrophils/100 WBC (Bld) 65.2 % Normal 43.0-75.0 [facility] Comment on above: Performed By: #### C BC ####[facility] Jraexwlfol[address] [place] [id number]. Nahed Yañez Platelet mean volume (Bld) [Entitic vol] 8.9 fL Critically low 9.5-13.5 [facility] Comment on above: Performed By: #### C BC ####[facility] Labyrybpqd59[address] [place] [id number]. Nahed Otilio PLT 390 103/ul Normal 150-450 [facility] Comment on above: Performed By: #### C BC ####[facility] Sdbyocpmrf9[address] [place], [place] [address]Jz. Nahed Yañez RBC 5.50 106/ul Critically high 4.20-5.40 [facility] Comment on above: Performed By: #### C BC ####[facility] Usianpchfa[address] [place] [address]Dr. Nahed Yañez WBC 10.8 103/ul Normal 4.0-11.0 [facility] Comment on above: Performed By: #### C BC ####[facility] Olzfgkizfn[address] [place] [id number]. Nahed Yañez CULTURE BLOODon 09-06-2021 Microscopic examination of blood, culture Culture Observations: NO GROWTH AT 5 DAYS. Isolate 1 BC_BA_NA Normal [facility] Comment on above: Performed By: #### B LDCX2 ####[facility] Gicvwafvhq[address] [place] [id number]. Nahed Yañez Microscopic examination of blood, culture Culture Observations: NO GROWTH AT 5 DAYS. Normal [facility] Comment on above: Performed By: #### B LDCX1 ####[facility] Oqewocncdh46[address] [place] [id number]. Nahed Yañez [facility]13 SARS-CoV-2 (COVID-19) RNA MIRNA+probe Ql (Unsp spec) Not detected Normal NOT DETECTED [facility] Comment on above: Result Comment: When [...] for this test is supported by the [employer] Professor of Health and Human Service's declaration that [...] be used). Performed By: #### C VDTBH ####[facility] Cwiujzx[address] [place] [address]Dr. Nahed Yañez LACTATE/LACTIC ACIDon 2021 Lactate [Moles/Vol] 0.1 mmol/L Critically low 0.4-2.0 [facility] Comment on above: Performed By: #### L ACT ####[facility] Eqsbuqavzx79[address] [place] [address]Dr. Nahed Yañez Lactate [Moles/Vol] 1.5 mmol/L Normal 0.4-2.0 [facility] Comment on above: Performed By: #### L ACT ####[facility] [address] [place], [place] [address]Dr. Nahed Yañez POINT OF CARE GLUCOSEon 08-13 Glucose [Mass/Vol] 201 mg/dL Critically high 74-106 [facility] Comment on above: Performed By: #### P OCGLUC ####[facility] [address] [place], [place] [address]Dr. Nahed Yañez PROF CHEM 8 (BAS METB)on Anion gap [Moles/Vol] 14.8 mmol/L Normal [facility] Comment on above: Performed By: #### B MP, BNP, HSTROPN ####[facility] [address]vixqdnkas[address] [place] [address]Dr. Nahed Yañez Calcium [Mass/Vol] 8.8 mg/dL Normal 8.5-10.1 [facility] Comment on above: Performed By: #### B MP, BNP, HSTROPN ####[facility] Dsty[address] [place], [place] [address]Dr. Nahed Yañez Chloride [Moles/Vol] 95 mmol/L Critically low 98-107 [facility] Comment on above: Performed By: #### B MP, BNP, HSTROPN ####[facility] V[address] [place], [place] [address]Dr. Nahed Yañez CO2 [Moles/Vol] 28.7 mmol/L Normal 21.0-32.0 [facility] Comment on above: Performed By: #### B MP, BNP, HSTROPN ####[facility] O[address]ansbugb[address] [place] [address]Dr. Nahed Yañez Creatinine [Mass/Vol] 0.98 mg/dL Normal 0.55-1.02 [facility] Comment on above: Performed By: #### B MP, BNP, HSTROPN ####[facility] [address] [place], [place] [address]Dr. Nahed Yañez EGFR-AF MOSOTHO >60 Normal >=60 [facility] Comment on above: Performed By: #### B MP, BNP, HSTROPN ####[facility] [address] [place], [place] [address]Dr. Rosemarieashley Otilio EGFR-NON AF MOSOTHO 58 mL/min/1.73m2 Critically low >=60 [facility] Comment on above: Performed By: #### B MP, BNP, HSTROPN ####[facility] Rrf[address]rdisq[address] [place], [place] [address]Dr. Rosemarieashley Yañez Glucose [Mass/Vol] 150 mg/dL Critically high 74-106 [facility] Comment on above: Performed By: #### B MP, BNP, HSTROPN ####[facility] [address] [place], [place] [address]Dr. Nahed Yañez Potassium [Moles/Vol] 4.5 mmol/L Normal 3.5-5.1 [facility] Comment on above: Performed By: #### B MP, BNP, HSTROPN ####[facility] [address] [place], [place] [address]Dr. Rosemarieashley Yañez Sodium [Moles/Vol] 134 mmol/L Critically low 136-145 [facility] Comment on above: Performed By: #### B MP, BNP, HSTROPN ####[facility] I[address]aw[address] [place], [place] [address]Dr. Nahed Yañez Urea nitrogen [Mass/Vol] 19.0 mg/dL Critically high 7.0-18.0 [facility] Comment on above: Performed By: #### B MP, BNP, HSTROPN ####[facility] [address] [place], [place] [address]Ht. Nahed Yañez Urea nitrogen/Creatinine [Mass ratio] 19.4 mg/mg Normal [facility] Comment on above: Performed By: #### B MP, BNP, HSTROPN ####[facility] Zq[address]we[address] [place] [id number]. Nahed Yañez TROPONIN, HIGH SENSITIVITYon 09-06-2021 HSTROP 50.4 pg/mL Normal 4.0-51.3 [facility] Comment on above: Result Comment: CUT- OFF POINTS HAVE BEEN ESTABLISHED BASED ON THE FOURTH UNIVERSAL DEFINITIONS OF MYOCARDIALINFARCTION. THE UPPER REFERENCE LIMIT (URL) OF TROPONIN, DEFINED THE 99TH PERCENTILE OFcTnI DISTRIBUTION IN A REFERENCE POPULATION, HAS BEEN CONFIRMED THE DECISION THRESHOLDFOR [place] DIAGNOSIS. Performed By: #### B MP, BNP, HSTROPN ####[facility] [address]zt[address] [place] [id number]. Nahed Yañez XR CHEST 1 Von 09-06-2021 XR CHEST 1 V Normal [facility] CBC with Diffon 09-08-2018 Abs. Basophil 0.03 k/uL Normal 0.00-0.20 [facility] Comment on above: Performed By: #### L IP, CMPX, CDP #### [facility] [address] [place] [address] Story Teller: Nino Farias MD Abs.Imm.Granulocyte 0.05 k/uL Normal 0.00-0.30 [facility] Comment on above: Performed By: #### L IP, CMPX, CDP #### [facility] [address] [place] [address] Story Teller: Nino Farias MD Abs.Neutrophil (Seg) 11.30 k/uL High 1.50-8.10 [facility] Comment on above: Performed By: #### L IP, CMPX, CDP #### [facility] [address] [place], [place] [address] Story Teller: Nino Farias MD Basophils/100 WBC (Bld) 0 % Normal 0-2 [facility] Comment on above: Performed By: #### L IP, CMPX, CDP #### [facility] [address] [place], [place] 7[address] Story Teller: Nino Farias MD Eosinophils #/vol (Bld) 0.17 10*3/uL Normal 0.00-0.44 [facility] Comment on above: Performed By: #### L IP, CMPX, CDP #### [address] [place], [facility]83 Story Teller: Nino Farias MD Eosinophils/100 WBC (Bld) 1 % Normal 1-4 [facility] Comment on above: Performed By: #### L IP, CMPX, CDP #### [address] [place], [facility] Story Teller: Nino Farias MD Erythrocyte distribution width Ratio (RBC) 12.5 % Normal 11.8-14.4 [facility] Comment on above: Performed By: #### L IP, CMPX, CDP #### [address] [place], [facility]83 Story Teller: Nino Farias MD Hematocrit Volume Fraction (Bld) 36.8 % Normal 36.3-47.1 [facility] Comment on above: Performed By: #### L IP, CMPX, CDP #### [address] [place], [place] [address]83 Story Teller: Nino Farias MD Hemoglobin mass conc (Bld) 11.6 g/dL Low 11.9-15.1 [facility] Comment on above: Performed By: #### L IP, CMPX, CDP #### [address] [place], [facility] Story Teller: Nino Farias MD Immature granulocytes #/vol (Bld) 0 % Normal 0 [facility] Comment on above: Performed By: #### L IP, CMPX, CDP #### [facility] [address] [place], [place] [address] Story Teller: Nino Farias MD Lymphocytes #/vol (Bld) 2.56 10*3/uL Normal 1.10-3.70 [facility] Comment on above: Performed By: #### L IP, CMPX, CDP #### [facility] [address] [place], [facility] Story Teller: Nino Farias MD Lymphocytes/100 WBC (Bld) 18 % Low 24-43 [facility] Comment on above: Performed By: #### L IP, CMPX, CDP #### [address] [place], [facility] Story Teller: Nino Farias MD MCH Entitic mass (RBC) 30.6 pg Normal 25.2-33.5 [facility] Comment on above: Performed By: #### L IP, CMPX, CDP #### [address] [place], [facility]83 Story Teller: Nino Farias MD MCHC mass conc (RBC) 31.5 g/dL Normal 28.4-34.8 [facility] Comment on above: Performed By: #### L IP, CMPX, CDP #### [address] [place], [place] [address] Story Teller: Nino Farias MD MCV Entitic volume (RBC) 97.1 fL Normal 82.6-102.9 [facility] Comment on above: Performed By: #### L IP, CMPX, CDP #### [facility] [address] [place], [place] [address] Story Teller: Nino Farias MD Monocytes #/vol (Bld) 0.55 10*3/uL Normal 0.10-1.20 [facility] Comment on above: Performed By: #### L IP, CMPX, CDP #### [facility] [address] [place], [place] [address] Story Teller: Nino Farias MD Monocytes/100 WBC (Bld) 4 % Normal 3-12 [facility] Comment on above: Performed By: #### L IP, CMPX, CDP #### [facility] [address] [place], [place] [address] Story Teller: Nino Farias MD Neutrophil (Seg) 77 % High 36-65 [facility] Comment on above: Performed By: #### L IP, CMPX, CDP #### [facility] [address] [place], [place] 4574[address] Story Teller: Nino Farias MD NRBC Automated 0.0 per 100 WBC Normal 0.0 [facility] Comment on above: Performed By: #### L IP, CMPX, CDP #### [facility] [address] [place], [place] [address] Story Teller: Nino Farias MD Platelet mean volume Entitic volume (Bld) 9.2 fL Normal 8.1-13.5 [facility] Comment on above: Performed By: #### L IP, CMPX, CDP #### [facility] [address] [place], [place] [address] Story Teller: Nino Farias MD Platelets #/vol (Bld) 305 10*3/uL Normal 138-453 [facility] Comment on above: Performed By: #### L IP, CMPX, CDP #### [facility] [address] [place], [place] [address] Story Teller: Nino Farias MD RBC #/vol (Bld) 3.79 10*6/uL Low 3.95-5.11 [facility] Comment on above: Performed By: #### L IP, CMPX, CDP #### [facility] [address] [place] [address] Story Teller: Nino Farias MD WBC #/vol (Bld) 14.7 10*3/uL High 3.5-11.3 [facility] Comment on above: Performed By: #### L IP, CMPX, CDP #### [facility] [address] [place], [place] 5359383 Story Teller: Nino Farias MD Auto Diff Performed NOT REPORTED Normal [facility] Comment on above: Performed By: #### L IP, CMPX, CDP #### [address] [place] [address] Story Teller: Nino Farias MD Platelets #/vol (Bld) NOT REPORTED Normal [facility] Comment on above: Performed By: #### L IP, CMPX, CDP #### [facility] [address] [place] [address] [place] [address] Story Teller: Nino Farias MD RBC morphology finding Nom (Bld) NOT REPORTED Normal [facility] Comment on above: Performed By: #### L IP, CMPX, CDP #### [address] [place] [address] Story Teller: Nino Farias MD WBC Morphology NOT REPORTED Normal [facility] Comment on above: Performed By: #### L IP, CMPX, CDP #### [facility] [address] [place] [address] [place] [address] Story Teller: Nino Farias MD Comp Metabolic Pr/rfx MGon 0 09-08-2018 ALT enzyme act/vol U/L Low -33 [facility] Comment on above: Performed By: #### L IP, CMPX, CDP #### [facility] [address] [place], [place] 258[address] Story Teller: Nino Farias MD (cont.) Normal [facility] Comment on above: Result Comment: Aver age GFR for 50-59 years old: 93 mL/min/1.73sq m Chronic Kidney Disease: <60 mL/min/1.73sq m Kidney failure: <15 mL/min/1.73sq m eGFR calculated using average adult body mass. Additional eGFR calculator available at: http://www.[employer]/multiple_crcl_2012.htm Performed By: #### L IP, CMPX, CDP #### [facility] [address] [place] [address] Story Teller: Nino Farias MD Albumin mass conc 4.0 g/dL Normal 3.5-5.2 [facility] Comment on above: Performed By: #### L IP, CMPX, CDP #### [facility] [address] [place] [address] Story Teller: Nino Farias MD Albumin/Globulin mass ratio 1.3 {ratio} Normal 1.0-2.5 [facility] Comment on above: Performed By: #### L IP, CMPX, CDP #### [facility] [address] [place] [address] Story Teller: Nino Farias MD Alkaline Phos 58 U/L Normal 35-104 [facility] Comment on above: Performed By: #### L IP, CMPX, CDP #### [facility] [address] [place] [address] Story Teller: Nino Farias MD Anion gap molar conc 8 mmol/L Low 9-17 [facility] Comment on above: Performed By: #### L IP, CMPX, CDP #### [facility] [address] [place] [address] Story Teller: Nino Farias MD AST enzyme act/vol 20 U/L Normal <32 [facility] Comment on above: Performed By: #### L IP, CMPX, CDP #### [facility] [address] [place], [place] [address] Story Teller: Nino Farias MD Bilirubin Ql (U) 0.17 mg/dL Low 0.3-1.2 [facility] Comment on above: Performed By: #### L IP, CMPX, CDP #### [facility] [address] [place], [place] 389[address]83 Story Teller: Nino Farias MD BUN/CRE Ratio 15 Normal 9-20 [facility] Comment on above: Performed By: #### L IP, CMPX, CDP #### [facility] [address] [place], [place] 154[address]83 Story Teller: Nino Farias MD Calcium mass conc 9.3 mg/dL Normal 8.6-10.4 [facility] Comment on above: Performed By: #### L IP, CMPX, CDP #### [facility] [address] [place], [place] 201[address] Story Teller: Nino Farias MD Chloride molar conc 97 mmol/L Low 98-107 [facility] Comment on above: Performed By: #### L IP, CMPX, CDP #### [facility] [address] [place] [address] Dr[address] [place], [place] 0352[address] Story Teller: Nino Farias MD CO2 molar conc 31 mmol/L Normal 20-31 [facility] Comment on above: Performed By: #### L IP, CMPX, CDP #### [facility] [address] [place], [place] 412[address]83 Story Teller: Nino Farias MD Creatinine mass conc 1.22 mg/dL High 0.50-0.90 [facility] Comment on above: Performed By: #### L IP, CMPX, CDP #### [facility] [address] [place], [place] 1201683 Story Teller: Nino Farias MD GFR, Amer 55 mL/min Low >60 [facility] Comment on above: Performed By: #### L IP, CMPX, CDP #### [facility] [address] [place] [address] Story Teller: Nino Farias MD GFR,non Amer 45 mL/min Low >60 [facility] Comment on above: Performed By: #### L IP, CMPX, CDP #### [facility] [address] [place] [address] Story Teller: Nino Farias MD Glucose mass conc 93 mg/dL Normal 70-99 [facility] Comment on above: Performed By: #### L IP, CMPX, CDP #### [facility] [address] [place] [address] Story Teller: Nino Farias MD Potassium molar conc 4.5 mmol/L Normal 3.7-5.3 [facility] Comment on above: Performed By: #### L IP, CMPX, CDP #### [facility] [address] [place] [address] Story Teller: Nino Farias MD Protein mass conc 7.0 g/dL Normal 6.4-8.3 [facility] Comment on above: Performed By: #### L IP, CMPX, CDP #### [facility] [address] [place] [address] Story Teller: Nino Farias MD Sodium molar conc 136 mmol/L Normal 135-144 [facility] Comment on above: Performed By: #### L IP, CMPX, CDP #### [facility] [address] [place] [address] Story Teller: Nino Farias MD Staging: Normal [facility] Comment on above: Result Comment: Stag e 1: Some kidney damage normal GFR Stage 2: Mild kidney damage GFR 60-89 Stage 3: Moderate kidney damage GFR 30-59 Stage 4: Severe kidney damage GFR 15-29 Stage 5: Severe kidney damage GFR <15 ESRD - chronic treatment by dialysis or transplant Performed By: #### L IP, CMPX, CDP #### [facility] [address] [place], [place] 119[address]83 Story Teller: Nino Farias MD Urea nitrogen mass conc 18 mg/dL Normal 6-20 [facility] Comment on above: Performed By: #### L IP, CMPX, CDP #### [facility] [address] [place], [place] 9459783 Story Teller: Nino Farias MD Lactic Acidon 09-08-2018 Lactate molar conc 1.2 mmol/L Normal 0.5-2.2 [facility] Comment on above: Performed By: #### L AC #### [facility] [address] [place], [place] 5411483 Story Teller: Nino Farias MD Lipaseon 09-08-2018 Lipase enzyme act/vol 27 U/L Normal 13-60 [facility] Comment on above: Performed By: #### L IP, CMPX, CDP #### [facility] [address] [place], [place] 1306483 Story Teller: Nino Farias MD UA w/Reflex Cultureon 2018 Acetoacetic Acid,Ur Negative Normal NEG [facility] Comment on above: Performed By: #### U MICAO, UAX #### [facility] [address] [place], [place] 6[address]83 Story Teller: Nino Farias MD Bilirubin.direct mass conc SMALL Abnormal NEG [facility] Comment on above: Performed By: #### U MICAO, UAX #### [facility] [address] [place] [address] Story Teller: Nino Farias MD Color Nom (U) YELLOW Normal YEL [facility] Comment on above: Performed By: #### U MICAO, UAX #### [facility] [address] [place] [address] Story Teller: Nino Farias MD Glucose mass conc Negative Normal NEG [facility] Comment on above: Performed By: #### U MICAO, UAX #### [facility] [address] [place], [place] [address] Story Teller: Nino Farias MD Hemoglobin mass conc (Bld) Negative Normal NEG [facility] Comment on above: Performed By: #### U MICAO, UAX #### [facility] [address] [place], [place] 3627183 Story Teller: Nino Farias MD Leuckocyte Esterase Negative Normal NEG [facility] Comment on above: Performed By: #### U MICAO, UAX #### [facility] [address] [place], [place] 422[address]83 Story Teller: Nino Farias MD Nitrite,Ur Negative Normal NEG [facility] Comment on above: Performed By: #### U MICAO, UAX #### [facility] [address] [place] [address] Story Teller: Nino Farias MD PH,Ur 5.5 Normal 5.0-9.0 [facility] Comment on above: Performed By: #### U MICAO, UAX #### [facility] [address] [place] [address] Story Teller: Nino Farias MD Protein mass conc Negative Normal [facility] Comment on above: Performed By: #### U MICAO, UAX #### [facility] [address] [place], [place] 2538783 Story Teller: Nino Farias MD Spec. [place],Ur 1.010 Normal 1.010-1.020 [facility] Comment on above: Performed By: #### U MICAO, UAX #### [facility] [address] [place], [place] [address]57[address]83 Story Teller: Nino Farias MD Turbidity CLEAR Normal CLEAR [facility] Comment on above: Performed By: #### U MICAO, UAX #### [facility] [address] [place] [address] Story Teller: Nino Farias MD Urobilinogen,Ur Normal Normal NORM [facility] Comment on above: Performed By: #### U MICAO, UAX #### [facility] [address] [place] [address] Story Teller: Nino Farias MD Comment NOT REPORTED Normal [facility] Comment on above: Performed By: #### U MICAO, UAX #### [facility] [address] [place] [address] Story Teller: Nino Farias MD Urinalysis,Microon 9 ----- Normal [facility] Comment on above: Performed By: #### U MICAO, UAX #### [facility] [address] [place], [place] 7154383 Story Teller: Nino Farias MD Bacteria LM.HPF #/area (Urine sed) TRACE Abnormal NONE [facility] Comment on above: Performed By: #### U MICAO, UAX #### [facility] [address] [place], [place] [address] Story Teller: Nino Farias MD Epithelial cells LM.HPF #/area (Urine sed) None Normal 0-25 [facility] Comment on above: Performed By: #### U MICAO, UAX #### [facility] [address] [place], [place] 329[address] Story Teller: Nino Farias MD RBC #/vol (U) None Normal 0-2 [facility] Comment on above: Performed By: #### U MICAO, UAX #### [facility] [address] [place] [address] Story Teller: Nino Farias MD WBC #/vol (U) 0 TO 2 Normal 0-5 [facility] Comment on above: Performed By: #### U MICAO, UAX #### [facility] [address] [place], [place] 0440783 Story Teller: Nino Farias MD Amorphous sediment LM Ql (Urine sed) NOT REPORTED Normal NONE [facility] Comment on above: Performed By: #### U MICAO, UAX #### [facility] [address] [place] [address] Story Teller: Nino Farias MD Casts LM.LPF #/area (Urine sed) NOT REPORTED Normal [facility] Comment on above: Performed By: #### U MICAO, UAX #### [facility] [address] [place] [address] Story Teller: Nino Farias MD Crystals LM Nom (Urine sed) NOT REPORTED Normal [facility] Comment on above: Performed By: #### U MICAO, UAX #### [facility] [address] [place] [address] Story Teller: Nino Farias MD Epithelial, Renal NOT REPORTED Normal 0 [facility] Comment on above: Performed By: #### U MICAO, UAX #### [facility] [address] [place], [place] 1294383 Story Teller: Nino Farias MD Mucus Strands NOT REPORTED Normal [facility] Comment on above: Performed By: #### U MICAO, UAX #### [facility] [address] [place] [address] Story Teller: Nino Farias MD Other Observations NOT REPORTED Normal NREQ [facility] Comment on above: Performed By: #### U MICAO, UAX #### [facility] [address] [place] [address] Story Teller: Nino Farias MD Trichomonas NOT REPORTED Normal NONE [facility] Comment on above: Performed By: #### U MICAO, UAX #### [facility] [address] [place] [address] Story Teller: Nino Farias MD Yeast LM Ql (Urine sed) NOT REPORTED Normal NONE [facility] Comment on above: Performed By: #### U MICAO, UAX #### [facility] [address] [place] [address] Story Teller: Nino Farias MD Vital Signs Date Time Vital Sign Value Performing Clinician Faci lity 07-05-2023 22:13-0500 Diastolic blood pressure 74 mm[Hg] Arsenio Martin [facility] 07-05-2023 22:13-0500 Heart rate 62 /min Arsenio Mario [facility] 07-05-2023 22:13-0500 Mean blood pressure 85 mm[Hg] Arsenio Mario [facility] 07-05-2023 22:13-0500 Respiratory rate 14 /min Arsenio Mario [facility] 07-05-2023 22:13-0500 SaO2% (BldA) [Mass fraction] 99 % Arsenio Mario [facility] 07-05-2023 22:13-0500 Systolic blood pressure 107 mm[Hg] Arsenio Mario [facility] 07-05-2023 21:49-0500 Diastolic blood pressure 69 mm[Hg] Arsenio Mario [facility] 07-05-2023 21:49-0500 Heart rate 59 /min Arsenio Mario [facility] 07-05-2023 21:49-0500 Mean blood pressure 80 mm[Hg] Arsenio Mario [facility] 07-05-2023 21:49-0500 Respiratory rate 15 /min Arsenio Martin [facility] 07-05-2023 21:49-0500 SaO2% (BldA) [Mass fraction] 97 % Arsenio Mario [facility] 07-05-2023 21:49-0500 Systolic blood pressure 101 mm[Hg] Arsenio Mario [facility] 07-05-2023 21:02-0500 Diastolic blood pressure 77 mm[Hg] Arsenio Mario [facility] 07-05-2023 21:02-0500 Heart rate 60 /min Arsenioulises Martin [facility] 07-05-2023 21:02-0500 Mean blood pressure 86 mm[Hg] Arsenio Martin [facility] 07-05-2023 21:02-0500 Respiratory rate 16 /min Arsenio Martin [facility] 07-05-2023 21:02-0500 SaO2% (BldA) [Mass fraction] 99 % Arsenio Mario [facility] 07-05-2023 21:02-0500 Systolic blood pressure 105 mm[Hg] Arsenio Martin [facility] 07-05-2023 17:45-0500 Body temperature 97.52 [degF] Arsenio Martin [facility] 07-05-2023 16:27-0500 Body temperature 96.44 [degF] Arsenio Martin [facility] 07-05-2023 15:15-0500 gluc 136 mg/dL Arsenio Martin [facility] 07-05-2023 15:15-[address] [facility] 07-05-2023 15:02-0500 Body temperature 95.9 [degF] Arsenio Amrio [facility] 07-05-2023 15:02-0500 Heart rate 54 /min Arsenio Mario [facility] 07-05-2023 15:02-0500 Respiratory rate 16 /min Arsenio Mario [facility] 08-09-2022 17:25-0400 Diastolic blood pressure 64 mm[Hg] Arsenio Mario [facility] 08-09-2022 17:25-0400 Heart rate 75 /min Arsenio Mario [facility] 08-09-2022 17:25-0400 Mean blood pressure 83 mm[Hg] Arsenio Mario [facility] 08-09-2022 17:25-0400 Respiratory rate 16 /min Arsenio Mario [facility] 08-09-2022 17:25-0400 SaO2% (BldA) [Mass fraction] 96 % Arsenio Mario [facility] 08-09-2022 17:25-0400 Systolic blood pressure 122 mm[Hg] Arsenio Mario [facility] 08-09-2022 16:00-0400 Diastolic blood pressure 56 mm[Hg] Arsenio Mario [facility] 08-09-2022 16:00-0400 Heart rate 64 /min Arsenio Mario [facility] 08-09-2022 16:00-0400 Mean blood pressure 72 mm[Hg] Arsenio Mario [facility] 08-09-2022 16:00-0400 SaO2% (BldA) [Mass fraction] 92 % Arsenio Martin [facility] 08-09-2022 16:00-0400 Systolic blood pressure 103 mm[Hg] Arsenio Martin [facility] 08-09-2022 15:00-0400 Diastolic blood pressure 67 mm[Hg] Arsenio Martin [facility] 08-09-2022 15:00-0400 Heart rate 61 /min Arsenio Martin [facility] 08-09-2022 15:00-0400 Mean blood pressure 80 mm[Hg] Arsenio Martin [facility] 08-09-2022 15:00-0400 Systolic blood pressure 106 mm[Hg] Arsenio Martin [facility] 08-09-2022 14:03-0400 SaO2% (BldA) [Mass fraction] 94.1 % Arsenio Martin [facility] Resp Auto SS 08-09-2022 13:10-0400 Body temperature 98.24 [degF] Arsenio Martin [facility] 08-09-2022 13:10-0400 Heart rate 70 /min Arsenio Martin [facility] 08-09-2022 13:10-0400 Respiratory rate 18 /min Arsenio Martin [facility] Encounters Encounter Date Encounter Type Care Provider Facility Start: 09-10-2023 End: 09-10-2023 ambulatory EHAB [facility] Start: 08-11-2023 Evaluation and management of inpatient [facility] Start: 08-10-2023 Evaluation and management of inpatient [facility] Start: 08-10-2023 End: 08-11-2023 [facility]: 07-31-2023 End: 07-31-2023 ambulatory VINAY CHAPA [facility] Start: 07-11-2023 Evaluation and management of inpatient LOREE CHANCE [facility] Start: 07-08-2023 Evaluation and management of inpatient BARRETT LARSON [facility] Start: 07-06-2023 Evaluation and management of inpatient ISAIAHLAYNE LARSON [facility] Start: 07-06-2023 End: 07-11-2023 Evaluation and management of inpatient ARSENIO MARTIN [facility] Start: 07-05-2023 End: 07-06-2023 Emergency department patient visit Arsenio Matrin Facility[facility] Start: 07-05-2023 End: 07-05-2023 Emergency department patient visit Arsenio Martin [facility] Start: 06-29-2023 Evaluation and management of inpatient ROSALBA OLIVASWinston [facility] Start: 06-29-2023 End: 07-02-2023 Evaluation and management of inpatient SOCORRO Marquez CASTRO [facility] Start: 08-22-2022 End: 08-24-2022 Evaluation and management of inpatient DR ЕКАТЕРИНА ROBERT . Facility: Start: 08-09-2022 End: 08-09-2022 Emergency department patient visit Arsenio Martin [facility] Start: 08-09-2022 End: 08-09-2022 Emergency department patient visit Arsenio Martin [facility] Start: 07-30-2022 End: 08-01-2022 Evaluation and management of inpatient DR ЕКАТЕРИНА ROBERT . Facility: Start: 07-27-2022 End: 07-28-[address] ЕКАТЕРИНА ROBERT . Facility: Start: 05-08-2022 End: 05-09-[address] ЕКАТЕРИНА ROBERT . Facility:[facility] Start: 01-31-2022 End: 01-31-[address] ЕКАТЕРИНА ROBERT . Facility:[facility] Start: 11-01-2021 End: 11-03-2021 Evaluation and management of inpatient TAMIE FAJARDO Facility:[facility] Start: 10-31-2021 End: 11-01-2021 Evaluation and management of inpatient DR ЕКАТЕРИНА ROBERT . Facility: Start: 09-28-2021 End: 09-29-[address] ЕКАТЕРИНА ROBERT . Facility:[facility] Start: 09-06-2021 End: 09-07-[address] ЕКАТЕРИНА ROBERT . Facility: Start: 03-04-2021 End: 03-04-2021 Emergency department patient visit Magdalena Oconnor Facility:[facility] Start: 09-08-2018 End: 09-08-2018 Emergency department patient visit KEISHA DORADO JR [facility] Procedures Date Procedure Procedure Detail Performing Clinician Start: 08-02-2022 Microscopic examinat ion of blood, culture DR ЕКАТЕРИНА ROBERT . Comment on above: Performed By: #### B [id number] ####[facility] [id number] [place] [address]Dr. Nahed Otilio Start: 11-02-2021 Antibody screen SAVANNAHI SA AD Comment on above: Performed By: #### 3 5200, 84035 #### [facility] [address] [place] [address], [facility] Start: 07-16-2019 Phalangectomy of toe Fabián Martin [...] Martin Payers Date Payer Category Payer Medicare [id number] 2021 Self-pay 2018 Medicare [id number] 1960 Unknown [id number] 2.16.8 [id number] 1960 Unknown [id number] 2.16.8 [id number] 1961 Unknown [id number] 2.16.84 0.1.116487.3.579.2.593 1961 Unknown [id number] 2.16.84 0.1.042478.3.579.2.593 1961 Unknown [id number] 2.16.84 0.1.578946.3.579.2.593 1961 Unknown [id number] 2.16.84 0.1.685078.3.579.2.593 1961 Unknown [id number] 2.16.84 0.1.015395.3.579.2.593 1961 Unknown [id number] 2.16.84 0.1.406942.3.579.2.593 1961 Unknown [id number] 2.16.84 0.1.559914.3.579.2.593 1961 Unknown [id number] 2.16.84 0.1.066989.3.579.2.593 1961 Unknown [id number] 2.16.8 40.1.090783.3.579.2.727 1961 Unknown [id number] 2.16.8 40.1.427715.3.579.2.727 1959 Unknown [id number] Unknown [id number] 2.16.8 [id number] Social History Date Type Detail Facility Start: 08-09-2022 Tobacco smoking status Heavy t obacco smoker (finding) [facility] Comment on above: 2 cigarettes a day Sex Assigned At Female [facility] Functional Status Date Assessment Result Facility 07-05-2023 Functional Status N/A [facility] 08-09-2022 Functional Status N/A [facility] Clinical Notes 11-03-2021 to 09-10-2023 Note Date & Type Note Facility 09-10-2023 Note [facility] Cardiology Clinic Note Chief Complaint: Patient here for follow up [facility]. She is doing much better and isn't having as much chest pain. She was started on isosorbide and carvedilol. She's breathing much better. HPI: Vivian Vann is a 63 y.o. 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 All other systems reviewed and are negative. Past Medical History She has no past [...] History No family history on file. Allergies Bee venom protein (honey bee), Hay fever and allergy relief, and House dust Medications Current Outpatient Medications: albuterol 90 mcg/actuation inhaler, Inhale 2 puffs every 6 (six) hours if needed for wheezing., Disp: , Rfl: ALPRAZolam (Xanax) 1 mg tablet, Take 1 mg by mouth Twice daily at 6am and 6pm., Disp: , Rfl: aspirin 81 mg EC tablet, Take 81 mg by mouth in the morning., Disp: , Rfl: atorvastatin (Lipitor) 80 mg tablet, Take 80 mg by mouth in the morning., Disp: , Rfl: busPIRone (Buspar) 10 mg tablet, Take 10 mg by mouth in the morning and at bedtime., Disp: , Rfl: clopidogrel (Plavix) 75 mg tablet, Take 75 mg by mouth in the morning., Disp: , Rfl: cyclobenzaprine (Flexeril) 10 mg tablet, Take 10 mg by mouth if needed in the morning and at bedtime for muscle spasms., Disp: , Rfl: dapagliflozin propanediol (Farxiga) 10 mg, Take 10 mg by mouth in the morning., Disp: , Rfl: furosemide (Lasix) 40 mg tablet, Take 1 tablet (40 mg) by mouth in the morning., Disp: 30 tablet, Rfl: 0 gabapentin (Neurontin) 300 mg capsule, Take 300 mg by mouth in the morning, at noon, and at bedtime., Disp: , Rfl: levothyroxine (Tirosint) 75 mcg capsule, Take 75 mcg by mouth in the morning., Disp: , Rfl: pantoprazole (ProtoNix) 40 mg EC tablet, Take 40 mg by mouth before breakfast. Do not crush, chew, or split., Disp: , Rfl: spironolactone (Aldactone) 25 mg tablet, Take 1 tablet (25 mg) by mouth in the morning for 30 doses., Disp: 30 tablet, Rfl: 0 traZODone (Desyrel) 50 mg tablet, Take 50 mg by mouth at bedtime., Disp: , Rfl: Last Recorded Vitals BP 125/85 (BP Location: Right arm, Patient Position: Sitting) Pulse 83 Ht 1.715 m (5' 7.5 ) Wt 82.1 kg (181 lb) SpO2 97% BMI 27.93 kg/m??? Physical Examination: GENERAL: alert and oriented x3, well developed, in no acute distress. HEAD: atraumatic, normocephalic. EYES: IZABELLA, EOMI. NECK: trachea midline, no JVD present, no carotid bruits present. CARDIAC: S1, S2 present. RRR. No murmur, rubs, or gallops. RESPIRATORY: CTAB, no increased effort of breathing, no rales, rhonchi, or wheezing. ABDOMEN: soft, nontender, nondistended. EXTREMITIES: no lower extremity edema, peripheral pulses are 2+ bilaterally. No rash/skin discoloration present. NEURO: strength/sensation equal and symmetric in bilateral upper and lower extremities. PSYCH: appropriate mood, affect, and judgement. PROCEDURE PHYSICIAN: Ortiz Aquino MD Clinical Presentation: 63 y.o. Female with history of CAD status post prior PCI LAD, hypertension, hyperlipidemia, active smoking. She has worsening shortness of breath and was admitted to [place] [facility] and diagnosed NSTEMI and transferred to [facility] for further care. Her BNP is severely elevated consistent with acute heart failure. Final Impression: 1) Coronary angiogram shows stable CAD 2) right heart catheterization shows severely decompensated heart failure with mean wedge pressure 35 mmHg Plan: 1) optimal med therapy for CAD and HFpEF 2) Aspirin and high intensity statin therapy for CAD 3) optimize medical therapy for HFpEF as tolerated 4) outpatient follow-up with [facility] Procedures Performed: coronary angiogram, right heart catheterization, conscious sedation 21 min, ultrasound guidance for vascular access Procedure Description: The patient was brought to the cardiac catheterization lab in a fasting state. Informed written consent was obtained. she was prepped and draped in usual sterile fashion over the right wrist and right neck and (more content not included)... [facility] 08-11-2023 Note [facility]TP CARDIOLOGY INPAT IENT PROGRESS [...] or edema. Patient states she lives in [place] and does not have a car. This limits follow up for her pacemaker however she does have appt scheduled for 08/20 at our [place] [facility]. Plan for a device check to [...] signed: ROSAMARIA ELENA (more content not included)... [facility] 08-11-2023 Note Hospital Medicine Discharge Summary [...] 08/21/2023 2:00 PM Nita Bacon NP [facility] Your medication list START taking these [...] Your Medications These medications were sent to [facility]/pharmacy #[id number] AT [place] [address] oxyCODONE-acetaminophen 5-325 mg tablet Vivian is allergic [...] rate 20, h (more content not included)... [facility] 08-10-2023 Note 08/10/23 9435 Admission Assessment Questions Verify insurance with patient [...] Discharge? Yes Does the patient have a window caser assigned to them through their insurance? [...] to send link and activate MyChart? No [facility] 08-10-2023 Note Hospital Medicine History and Physical 08/10/2023 11:43 AM THE HOSPITALIST TEAM PREFERS TO USE [employer] CHAT FOR COMMUNICATION 7AM-7PM. IF I DO NOT RESPOND WITHIN 15 MINUTES, PLEASE PAGE ME/CALL THROUGH THE GUIDE WINDER. FROM 7PM-7AM, PLEASE PAGE [phone](COVR) Chief Complaint pacemaker lead failure, status post [...] Bradycardia 07/06/2023 NSTEMI (non-ST elevated myocardial infarction) ([facility]) 06/29/2023 Other forms of angina pectoris 06/29/2023 Hypomagnesemia 06/29/2023 Acute midline low back pain without sciatica 06/29/2023 Coronary arteriosclerosis 11/24/2021 Hyperlipidemia 11/24/2021 Type 2 diabetes mellitus ([facility]) 11/24/2021 Acute non-ST segment elevation myocardial infarction ([facility]) 11/24/2021 Cigarette smoker 11/24/2021 Pacemaker lead failure [...] this hospital stay by a member of [facility] Medicine. Past Medical History No past [...] Alcohol use: Not (more content not included)... [facility] 08-10-2023 Note Indications for vent ricular [...] of the upper extremity Loree Chance M.D. [facility] Web Services Managerlife sciences director and Pediatrics Director: Cardiac Electrophysiology Program [facility] 08-10-2023 Note Patient: Vivian Dela Cruz or Procedure Information Date/Time: 08/10/23829 Procedure: Pacemaker lead revision - [employer] Location: [facility] CONVEYOR BELT OPERATOR 1 / [facility] VASCULAR LAB (Cath) Providers: Loree Chance [...] who. Additional Equipment Requests [facility] 07-11-2023 Note Hospital Medicine Discharge Summary [...] Provider Department Center 07/17/2023 10:20 AM Socorro Oveido NP CARD Deirdre Moreno 08/06/2023 1:30 PM [facility] CV CLINIC DEVICE CHECK [facility] CARD [facility] HeartVAS Your medication list START taking these [...] from last 7 days Lab Units 07/11/23 0507/10/2342707/07/238 07/06/23 0238 WBC AUTO 10*3/uL 11.52* 10.52 [...] (more content not included)... [facility] 07-11-2023 Note Occupational Therapy Occupational Therapy [...] Level of Function Prior Function Level of [place]: Independent with ADLs and functional transfers, Independent [...] Eating meals?: None (Independent) Total Score OT [facility]: 24 Assessment/Plan OT Assessment OT Education/Comments: (PPM handout issued and discussed with good return demo) Plan OT Plan: No skilled OT OT Discharge Recommendations: Home OT - Discharge Recommendations Placed: Yes OT Goals Multi-Disciplinary Problems (from Occupational Therapy) Active Problems Not on file [facility] 07-11-2023 Note UTP CARDIOLOGY PROGR ESS [...] Normal heart size. Electronically signed: Denver Hernandez. [facility] 06/29/23: Final Impression: 1) Coronary angiogram shows stable CAD 2) right heart catheterization shows severely decompensated heart failure with mean wedge pressure 35 mmHg Plan: 1) optimal med therapy for CAD and HFpEF 2) Aspirin and high intensity statin therapy for CAD 3) optimize medical therapy for HFpEF as tolerated 4) outpatient follow-up with [facility] Echo 06/29/23: Left Ventricle: The left ventricle is normal size. Global left ventricular sys (more content not included)... [facility] 07-11-2023 Note Hospital Medicine Daily Progress Note - 07/11/2023 8:24 AM; Room: [address] [place] [address] Admission: 07/06/2023 12:25 AM; Length of stay: 5 days THE HOSPITALIST TEAM PREFERS TO USE [employer] CHAT FOR COMMUNICATION 7AM-7PM. IF I DO NOT RESPOND WITHIN 15 MINUTES, PLEASE PAGE ME/CALL THROUGH THE GUIDE WINDER. FROM 7PM-7AM, PLEASE PAGE [phone](COVR) Code Status: Full Code Barriers to Discharge: [...] LDL 95 07/06/2023 No results found for: [id number] , IRON , TIBC , C3 , [...] (more content not included)... [facility] 07-10-2023 Note Indications for dual -chamber [...] of the upper extremity Loree Chance M.D. [facility] Web Services Managerlife sciences director and Pediatrics Director: Cardiac Electrophysiology Program [facility] 07-10-2023 Note Patient: Vivian Dela Cruz or Procedure Information Date/Time: 07/10/231499 Procedure: Implant PPM Location: [facility] CONVEYOR BELT OPERATOR 1 / [facility] VASCULAR LAB (Cath) Providers: Loree Chance [...] who. Additional Equipment Requests [facility] 07-10-2023 Note UTP CARDIOLOGY PROGR ESS [...] lock IV AND sodium chloride CV Testing: [facility] 06/29/23: Final Impression: 1) Coronary angiogram shows stable CAD 2) right heart catheterization shows severely decompensated heart failure with mean wedge pressure 35 mmHg Plan: 1) optimal med therapy for CAD and HFpEF 2) Aspirin and high intensity statin therapy for CAD 3) optimize medical therapy for HFpEF as tolerated 4) outpatient follow-up with [facility] Echo 06/29/23: Left Ventricle: The left [...] 86 QT Interval 466 QTC CALCULATION(BAZETT) 476 R-Stephen 34 T Wave Stephen [address] & Marked T wave abnormality, consider anterolateral ischemia Prolonged QT Abnormal ECG When compared with ECG of 06-JUL-2023 14:34, T wave inversion less evident in Lateral Confirmed by Yoan GRIJALVA, KIERA Rainey (57) on 07/08/2023 12:23:36 PM Assessment/Plan Junctional bradycardia Abnormal EKG- ST/T wave changes concerning for ischemia- [facility] showed stable CAD Ventric (more content not included)... [facility] 07-10-2023 Note Hospital Medicine Daily Progress Note - 07/10/2023 8:08 AM; Room: [address] [place] [address] Admission: 07/06/2023 12:25 AM; Length of stay: 4 days THE HOSPITALIST TEAM PREFERS TO USE [employer] CHAT FOR COMMUNICATION 7AM-7PM. IF I DO NOT RESPOND WITHIN 15 MINUTES, PLEASE PAGE ME/CALL THROUGH THE GUIDE WINDER. FROM 7PM-7AM, PLEASE PAGE [phone](COVR) Code Status: Full Code Barriers to Discharge: [...] last 7 days Lab Units 07/09/2344407/08/23 0508 07/07/2341707/06/23 0238 WBC AUTO 10*3/uL 11.03* 12.46* < > 14.42* HEMOGLOBIN g/dL 12.3 12.1 < > 12.6 HEMATOCRIT % 37.5 37.9 < > 39.0 MCV fL 87.0 87.9 < > 86.5 PLATELETS AUTO 10*3/uL 285 301 < > 321 INR -- -- -- 1.00 < > = values in this interval not displayed. Chemistry: Results from last 7 days Lab Units 07/10/23 04207/09/2344407/08/23 0508 07/07/238 07/06/23 0238 SODIUM mmol/L 136 136 136 [...] LDL 95 07/06/2023 No results found for: [id number] , IRON , TIBC , C3 , [...] need to arrange for her transportation needs; show card writer provided printed information to Pt for local [employer] companies for Pt (more content not included)... [facility] 07-09-2023 Note Patient admitted to the hospital for: Bradycardia. Chart echo from 06/29/2023 reports: EF 60%. Echo report does Not qualify for Cardiac Rehab services per CMS eligibility criteria. A Cardiac Rehab referral must also meet CMS criteria. Marline Suarez, RN, BSN Cardiopulmonary Rehab Coordinator [facility] 07-09-2023 Note Cardiology Inpatient Progress Note [...] 86 QT Interval 466 QTC CALCULATION(BAZETT) 476 R-Stephen 34 T Wave Stephen [address] & Marked T wave abnormality, consider anterolateral ischemia Prolonged QT Abnormal ECG When compared with ECG of 06-JUL-2023 14:34, T wave inversion less evident in Lateral Confirmed by Yoan GRIJALVA, KIERA Rianey (57) on 07/08/2023 12:23:36 PM Lab Results [...] Rainey (57) on 07/08/2023 12:23:36 PM 06/29/23 [facility] Final Impression: 1) Coronary angiogram shows stable CAD 2) right heart catheterization shows severely decompensated heart failure with mean wedge pressure 35 mmHg Plan: 1) optimal med therapy for CAD and HFpEF 2) Aspirin and high intensity statin therapy for CAD 3) optimize medical therapy for HFpEF as tolerated 4) outpatient follow-up with [facility] Hemodynamic Data: RA: 17 mmHg RV: [...] of bradycardia. Patient has been transferred to [facility] for consideration of pacemaker placement. As [...] (more content not included)... [facility] 07-09-2023 Note Hospital Medicine Daily Progress Note - 07/09/2023 11:10 AM; Room: [address] [place] [address] Admission: 07/06/2023 12:25 AM; Length of stay: 3 days THE HOSPITALIST TEAM PREFERS TO USE [employer] CHAT FOR COMMUNICATION 7AM-7PM. IF I DO NOT RESPOND WITHIN 15 MINUTES, PLEASE PAGE ME/CALL THROUGH THE GUIDE WINDER. FROM 7PM-7AM, PLEASE PAGE [phone](COVR) Code Status: Full Code Barriers to Discharge: [...] LDL 95 07/06/2023 No results found for: [id number] , IRON , TIBC , C3 , [...] Planning TBD Signed Barrett Haider MD [facility] Medicine 07/09/2023 11: (more content not included)... [facility] 07-08-2023 Note ---- Attestation signed by [...] 07/08/23 0802 84/55 36.4 ???C (97.5 ???F) [facility] 67 21 98 % -- 07/08/23 [...] 86 QT Interval 466 QTC CALCULATION(BAZETT) 476 R-Stephen 34 T Wave Stephen [address] & Marked T wave abnormality, consider anterolateral ischemia Prolonged QT Abnormal ECG When compared with ECG of 06-JUL-2023 14:34, T wave inversion less evident in Lateral Lab Results Component Value Date CKTOTAL 36.0 07/06/2023 TROPONINI 0.12 () 07/06/2023 Complete Echo (TTE) w/wo Imaging Agent, Strain, 3D, Bubble Study Result Date: 06/29/2023 1 1 [facility] Heart Station [address] [place] [address] [phone] (fax) Echocardiogram-[facility] Name: VIVIAN VANN Study Date: 06/29/2023 12:30 PM B/P: 135 mmHg/89 mmHg HR: Date of : 1960 Location: [facility] Height: 67 in. Age: 63 year(s) [...] (more content not included)... [facility] 07-08-2023 Note Hospital Medicine Daily Progress Note - 07/08/2023 8:42 AM; Room: [address] [place] [address] Admission: 07/06/2023 12:25 AM; Length of stay: 2 days THE HOSPITALIST TEAM PREFERS TO USE [employer] FOR COMMUNICATION 7AM-7PM. IF I DO NOT RESPOND WITHIN 15 MINUTES, PLEASE PAGE ME/CALL THROUGH THE GUIDE WINDER. FROM 7PM-7AM, PLEASE PAGE [phone](COVR) Code Status: Full Code Barriers to Discharge: [...] LDL 95 07/06/2023 No results found for: [id number] , IRON , TIBC , C3 , [...] Planning TBD Signed Barrett Haider MD [facility] Medicine 07/08/2023 8:42 AM [facility] 07-07-2023 Note ---- Attestation signed by [...] 84 QT Interval 434 QTC CALCULATION(BAZETT) 451 R-Stephen 23 T Wave Stephen [address] & Marked [...] Bubble Study Result Date: 06/29/2023 1 1 [facility] Heart Station [address] [place], [place] [phone] (fax) Echocardiogram-[facility] Name: VIVIAN VANN Study Date: 06/29/2023 12:30 PM B/P: 135 mmHg/89 mmHg HR: Date of : 1960 Location: [facility] Height: 67 in. Age: 63 year(s) [...] (more content not included)... [facility] 02-24-2024 Note Hospital Medicine Daily Progress Note - 07/07/2023 10:19 AM; Room: [address] [place] [address] Admission: 07/06/2023 12:25 AM; Length of stay: 1 days THE HOSPITALIST TEAM PREFERS TO USE [employer] CHAT FOR COMMUNICATION 7AM-7PM. IF I DO NOT RESPOND WITHIN 15 MINUTES, PLEASE PAGE ME/CALL THROUGH THE GUIDE WINDER. FROM 7PM-7AM, PLEASE PAGE [phone](COVR) Code Status: Full Code Barriers to Discharge: [...] (more content not included)... [facility] 07-06-2023 Note communication receiv ed that Patient stating does not have transportation to return home at discharge At 07/02/2023 discharge, [facility] provided a one-time courtesy taxi cab transportation for Patient to return to her home (Patient's residence is 57 miles [address]-way from [facility] and cost for taxi cab was $146); [facility] is not able to provide another taxi cab. The following information was printed and provided to the Patient to make her own transportation arrangements for once she is medically cleared for discharge: [facility] hospital address is [address], [place] [address] [employer] Medicare to ask if non-emergency medical transportation is a covered benefit of the specific plan (https://www.Dhingana/contact-us/ohi o/) Taxis in [place] (https://co.jonnie.ky.us/3086/Taxi) [employer] [phone] ([phone]) [employer] [phone] [facility] 07-06-2023 Note 07/06/23 1625 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 Primary Caregiver Self Activities of [...] need to arrange for her transportation needs; show card writer provided printed information to Pt for local [employer] companies for Pt to consider; [facility] unable to pay for another one-time courtesy [employer] for 57miles one-way trip) [facility] 07-06-2023 Note 1526 show card writer attempted to meet with Pt to discuss discharge planning (including Patient will need to arrange her transportation once she is medically cleared to discharge to home); Patient not in bed; unable to complete yeat-pv-foai 1542 show card writer attempted to meet with Pt to discuss discharge planning (including Patient will need to arrange her transportation once she is medically cleared to discharge to home); Patient caring for toileting hygiene; unable to complete avna-kb-ncus [facility] 07-06-2023 Note 07/06/23 1219 Admission Assessment [...] Discharge? Yes Does the patient have a window caser assigned to them through their insurance? [...] and activate MyChart? Yes [facility] 07-06-2023 Note ---- Attestation signed by [...] Progress Note - 07/06/2023 11:37 AM; Room: [address] [place] [address] Admission: 07/05/2023 11:50 PM; Length of stay: 1 days THE HOSPITALIST TEAM PREFERS TO USE [employer] CHAT FOR COMMUNICATION 7AM-7PM. IF I DO NOT RESPOND WITHIN 15 MINUTES, PLEASE PAGE ME/CALL THROUGH THE GUIDE WINDER. FROM 7PM-7AM, PLEASE PAGE [phone](COVR) Code Status: Full Code Barriers to Discharge: [...] (more content not included)... [facility] 07-06-2023 Note . Hospital Medicine History and Physical 07/06/2023 1:19 AM THE HOSPITALIST TEAM PREFERS TO USE [employer] CH[employer] FOR COMMUNICATION 7AM-7PM. IF I DO NOT RESPOND WITHIN 15 MINUTES, PLEASE PAGE ME/CALL THROUGH THE GUIDE WINDER. FROM 7PM-7AM, PLEASE PAGE [phone](COVR) Chief Complaint No chief complaint on file. History of Present Illness Vivian Vann is an 63 y.o. female who came from home with CP. This is a 63 years old female lady with a medical history of hypertension, tobacco smoking, A-fib, CHF. Came into the [facility] as a direct admit transfer from [...] Bradycardia 07/06/2023 NSTEMI (non-ST elevated myocardial infarction) ([facility]) 06/29/2023 Other forms of angina pectoris 06/29/2023 Hypomagnesemia 06/29/2023 Acute midline low back pain without sciatica 06/29/2023 Coronary arteriosclerosis 11/24/2021 Hyperlipidemia 11/24/2021 Type 2 diabetes mellitus ([facility]) 11/24/2021 Acute non-ST segment elevation myocardial infarction ([facility]) 11/24/2021 Cigarette smoker 11/24/2021 Assessment and [...] this hospital stay by a member of [facility] Medicine. Past Medical History No past [...] (more content not included)... [facility] 07-05-2023 Evaluation + Plan note Extrac florinda from: Title:ED Note Author:Gregorio BOND, Cher Zayas . Date:07/05/23 1. Atrial fibrillation with slow ventricular [...] Reflex 07/05/23 * Drug Screen Urine 07/05/23 [facility]02-19-2024 NotePatient admitted to the hospital for: NSTEMI. Review of the last noted chart Echo from 06/29/2023 reports: EF 60%. Reported echo result does not qualify for Cardiac Rehab services per CMS eligibility criteria for CHF. 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 No Patient's goal for discharge home RucCC screened; Pt declining [facility], Consult resolved 1340 Communication received that Pt needing transportation to home since was transferred here from [facility], does not drive, lives alone, does not have friends or family who can transport ([phone]) PC to [employer]; from [address] [place] [address] [place] [address] will be $146 Housekeeping Staff provided verbal estimate to rigging supervisor, verbal approval from rigging supervisor 1408 taxi cab transportation arranged; bedside RN notified Confirmation #: [id number] Passenger: VIVIAN VANN Phone Number: [phone] Pickup Date/Time: 07/02/2023 3:00 PM Pickup Address: [facility], [address] [place] [address], [facility] Drop Off Address: [address] [place] [address]. Ride Notes: please pickup at [facility]02-19-2024 Note07/02/23 1017 Admission Assessment Questions Verify [...] Discharge? Yes Does the patient have a window caser assigned to them through their insurance? [...] able to send link and activate MyChart? [facility]02-19-2024 Note Attestation signed by Merritt Guerrero [...] QT Interval 476 QTC CALCULATION(BAZETT) 479 P Stephen 68 R-Stephen 25 T Wave Stephen 128 Impression Normal sinus rhythm Right atrial [...] Bubble Study Result Date: 06/29/2023 1 1 [facility] Heart Station [address] [place] [address] [phone] (fax) Echocardiogram-[facility] Name: VIVIAN VANN Study Date: 06/29/2023 12:30 PM B/P: 135 mmHg/89 mmHg HR: Date of : 1960 Location: [facility] Height: 67 in. Age: 63 year(s) [...] function. Dop (more content not included)...[facility]02-18-2024 NoteHospital Medicine Daily Progress Note - 07/01/2023 12:00 PM; Room: [address] [place] [address] Admission: 06/29/2023 11:04 AM; Length of stay: 2 days THE HOSPITALIST TEAM PREFERS TO USE [employer] FOR COMMUNICATION 7AM-7PM. IF I DO NOT RESPOND WITHIN 15 MINUTES, PLEASE PAGE ME/CALL THROUGH THE GUIDE WINDER. FROM 7PM-7AM, PLEASE PAGE [phone](COVR) Code Status: Full Code Barriers to Discharge: [...] LDL 114 11/02/2021 No results found for: [id number] , IRON , TIBC , C3 , C4 , WENDI , CANCA , ASO , PSA , CEA , CA125 , CA199 , AFP , CA153 Imaging ECG 12 lead Normal sinus rhythm Right atrial (more content not included)...[facility] 07-01-2023 Note Attestation signed by Merritt [...] QT Interval 476 QTC CALCULATION(BAZETT) 479 P Stephen 68 R-Stephen 25 T Wave Stephen 128 Impression Normal sinus rhythm Right atrial [...] Bubble Study Result Date: 06/29/2023 1 1 [facility] Heart Station [address] [place], [place] [phone] (fax) Echocardiogram-[facility] Name: VIVIAN VANN Study Date: 06/29/2023 12:30 PM B/P: 135 mmHg/89 mmHg HR: Date of : 1960 Location: [facility] Height: 67 in. Age: 63 year(s) [...] The r (more content not included)...[facility]02-17-2024 Note Attestation signed by Merritt Guerrero [...] QT Interval 476 QTC CALCULATION(BAZETT) 479 P Stephen 68 R-Stephen 25 T Wave Stephen 128 Impression Normal sinus rhythm Right atrial [...] Bubble Study Result Date: 06/29/2023 1 1 [facility] Heart Station [address] [place] [address] [phone] (fax) Echocardiogram-[facility] Name: VIVIAN VANN Study Date: 06/29/2023 12:30 PM B/P: 135 mmHg/89 mmHg HR: Date of : 1960 Location: [facility] Height: 67 in. Age: 63 year(s) [...] N (more content not included)... [facility]02-17-2024 NoteHospital Medicine Daily Progress Note - 06/30/2023 11:32 AM; Room: [address] [place] [address] Admission: 06/29/2023 11:04 AM; Length of stay: 1 days THE HOSPITALIST TEAM PREFERS TO USE [employer] FOR COMMUNICATION 7AM-7PM. IF I DO NOT RESPOND WITHIN 15 MINUTES, PLEASE PAGE ME/CALL THROUGH THE GUIDE WINDER. FROM 7PM-7AM, PLEASE PAGE [phone](COVR) Code Status: Full Code Barriers to Discharge: [...] Principal Problem: NSTEMI (non-ST elevated myocardial infarction) ([facility]) Active Problems: Hyperlipidemia Type 2 diabetes mellitus [...] LDL 114 11/02/2021 No results found for: [id number] , IRON , TIBC , C3 , C4 , WENDI , CANCA , ASO , PSA , CEA , CA125 , CA199 , AFP , CA153 Imaging ECG 12 lead Normal sinus rhythm Right atrial enlargement ST & T wave abnormality, consider ante (more content not included)...[facility]02-16-2024 NotePatient: Vivian Vann Procedure Information Date/Time: 06/29/23 1655 Procedure: Coronary angiography Location: [facility] CONVEYOR BELT OPERATOR 3 / [facility] VASCULAR [facility] (Cath) Providers: Ortiz Aquino [...] who. Plan discussed with attending. [facility] Note Hospital Medicine History and Physical 06/29/2023 12:51 PM THE HOSPITALIST TEAM PREFERS TO USE [employer] FOR COMMUNICATION 7AM-7PM. IF I DO NOT RESPOND WITHIN 15 MINUTES, PLEASE PAGE ME/CALL THROUGH THE GUIDE WINDER. FROM 7PM-7AM, PLEASE PAGE [phone](COVR) Chief Complaint Direct admission from [facility] for NSTEMI requiring cardiac cath History of Present Illness Vivian Vann is an 63 y.o. female who came from [facility] as direct asmission for NSTEMI. Patient presented 06/28/23 to [place] ED for c/o chest pain and lower back pain. Patient troponin level found to be 557 and EKG showed new ischemia and inverted T-waves, NSTEMI. She was given nitroglycerin and started on heparin drip. Patient is 1 year s/p stent placement at [facility] on plavix and aspirin. Dr. Chapa with cardiology agreed to patient transfer here to [facility] with hospital medicine admitting and cardiology [...] Low back pending. Laboratory workup here at [facility] shows CBC unremarkable w/ exception of [...] nursing note reviewed. Exam conducted with a pipe caulker present. Constitutional: General: She is not in [...] Date Noted NSTEMI (non-ST elevated myocardial infarction) ([facility]) 06/29/2023 Assessment and Plan Chest pain Low Back Pain NSTEMI -Troponin 557 at [facility], troponin now 0.07 - aPTT 67.3, [...] with titratio (more content not included)...[facility]04-05-2023 NoteMicrobiology PROCEDURE: Blood Culture Charcoal [R1] [...] Locations R1: [facility], [address] [place] [address], [address] [place] [address], [facility] Mary[facility] HospitalComment on above:Performed By: #### [id number] ####[address] [id number] NoteMicrobiology PROCEDURE: Blood Culture Charcoal [R1] SOURCE: Blood BODY SITE: Arm L COLLECTED DATE/TIME: 08/09/2022 14:09 EDT RECEIVED DATE/TIME: 08/09/2022 14:17 EDT START DATE/TIME: 08/09/2022 14:17 EDT FREE TEXT SOURCE: lt ac Nic PA-C, Clinton C Nic PA-C, Clinton C FINAL REPORTS Final Report [] Verified Date/Time: 08/16/2022 15:58 EDT No growth at 7 days. Performing Locations R1: This test was performed at: [facility], [address] [place] [address], [id number] [place] [address], [facility] HospitalComment on above:Performed By: #### [id number] ####[place] [id number] Hospital Discharge instructions Patient Education 08/09/2022 16:50:59 [...] Follow these instructions at home: Medicines Take dxau-ojz-zwnynjr and prescription medicines (inhaled or pills) only [...] 02/07/2006 Document Revised: 04/12/2018 Document Reviewed: 06/04/2017 [employer] Patient Education 2020 [employer]. Follow Up Care 08/09/2022 13:09:28 With:Екатерина Jakob Address: [address] [place], [place] [address] Business (1) When:08/12/2022 16:50:37 Comments:Call the office [...] you develop any new or worsening symptoms. [facility]03-29-2023 Evaluation + Plan noteExtracted from: Title:ED [...] day(s), # 14 tab(s), Refills(s) 0, Pharmacy: [facility], 170.2, cm, 08/09/22 13:13:00 EDT, Height/Length [...] day(s), # 15 tab(s), Refills(s) 0, [facility]acy: [facility], 170.2, cm, 08/09/22 13:13:00 EDT, Height/Length [...] Charcoal 08/09/22 * Blood Culture Charcoal 08/09/22 [facility]06-23-2022 NoteMR#: [id number] I [facility] Pt. Name: Vivian Vann Admitted: 11/01/2021 Discharged: 11/03/2021 Date of : 1960 Physician: Tamie Fajardo MD DISCHARGE SUMMARY PRINCIPAL DIAGNOSIS: Bny-PZ-dmqoyuyen myocardial infarction. SECONDARY DIAGNOSES: 1. Questionable small subsegmental PE in the right lower lobe, favored to be chronic per CT angio done outside facility. 2. Peptic ulcer disease. 3. Depression. 4. Chronic obstructive pulmonary disease. 5. THC use. 6. Nicotine use. HOSPITAL COURSE: Again, the patient was admitted to the hospital on 11/01/2021, with chest pain and she was found to have a uax-VC-hsazbywsu [place]. The patient underwent cardiac catheterization and had [...] Fajardo MD Date Trans: 11/03/2021 01:10 P/laura [id number] cc: Gasper Avendano M.D. [facility] [address] Екатерина Robert M.D. [facility] [address] [facility] [id number] [facility] Narrative No data available for this section [facility] No data available for this section [facility] No data available for this section [facility] Summary Purpose Family History No Family [...] DATE CREATED AUTHOR AUTHOR'S ORGANIZ ATION 01/06/2022 [facility] DATE CREATED AUTHOR AUTHOR'S ORGANIZ ATION 09/05/2022 [facility] DATE CREATED AUTHOR AUTHOR'S ORGANIZ ATION 07/13/2023 [facility] DATE CREATED AUTHOR AUTHOR'S ORGANIZ ATION 08/04/2023 [facility] DATE CREATED AUTHOR AUTHOR'S ORGANIZ ATION 09/11/2023 [facility] Patient Care team informatio n (unrecognized section and content) Personnel Name: Екатерина Robert MD Address: Address: [address] [place] [address] Personnel Name: Екатерина Robert MD Address: Address: [address] [place] [address] FOR RECORDS PERTAINING TO PATIENTS WHO ARE [...] BE BASED ON THE PRIMARY CLINICAL RECORDS. [facility] [employer] [facility]. provides no warranty or guarantee of the accuracy or completeness of information in this document.
--- NOTE | 2024-05-04 06:11 | XR_ITS ---
The [address] [address] Patient Name: EMERY JETT MRN: [id number] date: 1960 Sex: F Assigned Patient Location: ER Current Patient Location: ER Accession/Order Number: [id number] Exam Date: 05/04/2024 06:20 Report Date: 05/04/2024 06:34 At the request of: SHAUN GARCIA Procedure: XR chest 2V EXAM: XR chest 2V HISTORY: SOB COMPARISON: Chest radiograph dated 12/12/2023. TECHNIQUE: 2 views of the chest were obtained. FINDINGS: A left chest cardiac pacemaker device is in place. The cardiac silhouette is stable in size. Aortic atherosclerotic disease is seen. The lungs are clear. There is no significant pneumothorax or pleural effusion. No acute osseous abnormality is seen. XR/XR chest 2V IMPRESSION: 1. No acute cardiopulmonary abnormality. Electronically authenticated by: Mendez SCHAEFFER Date: 05/04/2024 06:34
--- NOTE | 2024-05-04 06:31 | ECG_ITS ---
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
[2024-05-04 06:34] LABS: Influenza Virus A Antigen Negative; Influenza Virus B Antigen Negative; Internal Control Within Normal Limits; SARS-CoV-2 Ag POSITIVE (NEGATIVE)
--- NOTE | 2024-05-04 06:50 | ED.SOB1 ---
HPI - SOB/Dyspnea General Chief Complaint: Shortness of Breath/Dyspnea Stated Complaint: sob Time Seen by Provider: 05/04/24 06:00 Source: patient Mode of arrival: ambulance Limitations: no limitations History of Present Illness HPI Narrative: 63-year-old female to the emergency department chief complaint of shortness of breath, cough. Patient reports symptoms began over the last 3 days. She reports congestion. She reports fever, sweats, chills and malaise. She reports she feels like she did last time she had COVID. She denies any chest pain. She reports a history of COPD. Related Data Home Medications ?Medication ?Instructions ?Recorded ?Confirmed alprazolam 1 mg tablet 1 mg PO BID 06/10/23 10/11/23 aspirin 81 mg tablet,delayed 81 mg PO DAILY 06/10/23 10/11/23 release atorvastatin 80 mg tablet 80 mg PO DAILY 06/10/23 10/11/23 buspirone 10 mg tablet 10 mg PO BID 06/10/23 10/11/23 clopidogrel 75 mg tablet 75 mg PO DAILY 06/10/23 10/11/23 dapagliflozin propanediol 10 mg 10 mg PO DAILY 06/10/23 10/11/23 tablet (Farxiga) gabapentin 300 mg capsule 300 mg PO TID 06/10/23 10/11/23 trazodone 50 mg tablet 50 mg PO DAILY PRN insomnia 06/10/23 10/11/23 albuterol sulfate 90 mcg/actuation 1 puff inhalation Q4H PRN 06/29/23 10/11/23 aerosol inhaler shortness of breath or wheezing pantoprazole 40 mg tablet,delayed 40 mg PO DAILY 06/29/23 10/11/23 release Previous Rx's ?Medication ?Instructions ?Recorded levothyroxine 75 mcg tablet 75 mcg PO ACB #30 tabs 06/11/23 carvedilol 12.5 mg tablet (Coreg) 12.5 mg PO BID #60 tabs 08/23/23 isosorbide mononitrate 30 mg 30 mg PO QD #30 tabs 08/23/23 tablet,extended release 24 hr nitroglycerin 0.4 mg sublingual 0.4 mg sublingual Q5M PRN chest 08/23/23 tablet pain #30 tabs levofloxacin 750 mg tablet 750 mg PO DAILY 10 days #10 tabs 10/12/23 prednisone 10 mg tablet 50 mg (5 x 10 mg) PO DAILY #47 tabs 10/12/23 promethazine-DM 6.25 mg-15 mg/5 mL 5 ml PO Q4H PRN cough #118 mL 10/12/23 oral syrup Allergies Allergy/AdvReac Type Severity Reaction Status Date / Time No Known Drug Allergies Allergy Verified 08/20/23 21:47 Review of Systems ROS Status of ROS 10 or more systems reviewed and unremarkable except as noted in history and below [facility] Medical History (Updated 05/04/24 @ 06:53 by Arsenio Martin MD) Acute exacerbation of chronic obstructive pulmonary disease ?J44.1 - Chronic obstructive pulmonary disease with (acute) exacerbation (ICD-10) Hypertensive emergency ?I16.1 - Hypertensive emergency (ICD-10) Acute gastroenteritis ?K52.9 - Noninfective gastroenteritis and colitis, unspecified (ICD-10) Hypoxemia ?R09.02 - Hypoxemia (ICD-10) Chest pain ?R07.9 - Chest pain, unspecified (ICD-10) Coronary artery disease ?I25.10 - Atherosclerotic heart disease of [place] coronary artery without angina pectoris (ICD-10) Elevated troponin ?R79.89 - Other specified abnormal findings of blood chemistry (ICD-10) Pneumonia ?J18.9 - Pneumonia, unspecified organism (ICD-10) Anxiety ?F41.9 - Anxiety disorder, unspecified (ICD-10) Acute kidney injury ?N17.9 - Acute kidney failure, unspecified (ICD-10) Acute anxiety ?F41.9 - Anxiety disorder, unspecified (ICD-10) Pacemaker ?Z95.0 - Presence of cardiac pacemaker (ICD-10) Iron deficiency anemia ?D50.9 - Iron deficiency anemia, unspecified (ICD-10) COPD (chronic obstructive pulmonary disease) ?J44.9 - Chronic obstructive pulmonary disease, unspecified (ICD-10) Hypoxia ?R09.02 - Hypoxemia (ICD-10) Dyspnea ?R06.00 - Dyspnea, unspecified (ICD-10) Elevated brain natriuretic peptide (BNP) level ?R79.89 - Other specified abnormal findings of blood chemistry (ICD-10) Hypertension ?I10 - Essential (primary) hypertension (ICD-10) Elevated troponin ?R79.89 - Other specified abnormal findings of blood chemistry (ICD-10) Acute dyspnea ?R06.00 - Dyspnea, unspecified (ICD-10) IBS (irritable bowel syndrome) ?K58.9 - Irritable bowel syndrome without diarrhea (ICD-10) Anxiety ?F41.9 - Anxiety disorder, unspecified (ICD-10) Heart attack ?I21.9 - Acute myocardial infarction, unspecified (ICD-10) Sciatic leg pain ?M54.30 - Sciatica, unspecified side (ICD-10) Herniated disc, cervical ?M50.20 - Other cervical disc displacement, unspecified cervical region (ICD-10) Surgical History History of appendectomy ?Z90.49 - Acquired absence of other specified parts of digestive tract (ICD-10) History of heart artery stent ?Z95.5 - Presence of coronary angioplasty implant and graft (ICD-10) Family History Mother Family history of CHF (congestive heart failure) Family history of hypertension Father Family history of CHF (congestive heart failure) Brother Family history of CHF (congestive heart failure) Other Family history of diabetes mellitus Family history of myocardial infarction Social History (Updated 10/11/23 @ 12:25 by Светлана Martell) Within the past year, how often did you have a drink containing alcohol: monthly or less Smoking status: Light tobacco smoker Nicotine containing products detail: 1 pack/week Non-prescribed substance use: cannabis (any form) Non-prescribed substance use details: smokes marijuana, gummies Highest level of school completed/degree received: high school graduate Are you now , , , , never or living with a partner: In a typical week, how many times do you talk on the telephone with family, friends, or neighbors: once per week How often do you get together with friends or relatives: never How often do you attend scientologist or shinto services: 4 or more times per year Do you belong to any clubs or organizations such as scientologist groups unions, fraternal or athletic groups, or school groups: no Total score: 1 Score interpretation: A score of less than or equal to 1 indicates the most socially isolated. Little interest or pleasure in doing things: not at all Feeling down, depressed, or hopeless: not at all Feel stressed/tense/nervous/anxious/difficulty sleeping: very much Life stressors: recent of family or friend Life stressor details: 2020 lost family Do you think of yourself as: straight/heterosexual Gender Identity: female Exam Narrative Exam Narrative: VITALS: I have reviewed the triage vital signs. GENERAL: Well developed, well appearing adult in no acute distress. NEURO: Alert and oriented. Moves all extremities. Face is symmetric and expressive. EYES: PERRL. No scleral icterus or conjunctival injection. No discharge. HENT: Normocephalic, atraumatic. Hearing is grossly intact. Nares grossly patent and without discharge. Mucous membranes moist. NECK: No JVD. Patient moves neck without restriction. CARDIO: Rhythm regular. Normal rate. No murmur, rub, or gallop. Pulses equal bilaterally in the upper and lower extremity. No lower extremity edema. PULM: Rhonchi that clear with coughing. Trace wheezes. Moderate conversational dyspnea. Mild increased work of breathing. GI/: Abdomen is soft and non-tender. Normoactive bowel sounds. EXTREMITIES: Symmetric muscle bulk. No joint swelling. No clubbing, cyanosis, or deformity. SKIN: Warm and dry. Normal turgor. No rash or lesions appreciated. PSYCH: Anxious Constitutional Vital Signs, click to edit/add: Last Vital Signs Temp 97.8 F 05/04/24 06:00 Pulse 91 H 05/04/24 06:00 Resp 20 05/04/24 06:00 BP 120/78 05/04/24 06:00 Pulse Ox 97 05/04/24 06:06 O2 Del Method Room Air 05/04/24 06:06 Course Vital Signs Vital signs: Vital Signs Temperature 97.8 F 05/04/24 06:00 Pulse Rate 91 H 05/04/24 06:00 Respiratory Rate 20 05/04/24 06:00 Blood Pressure 120/78 05/04/24 06:00 Pulse Oximetry 96 05/04/24 06:00 Oxygen Delivery Method Room Air 05/04/24 06:00 Temperature 97.8 F 05/04/24 06:00 Pulse Rate 91 H 05/04/24 06:00 Respiratory Rate 20 05/04/24 06:00 Blood Pressure 120/78 05/04/24 06:00 Pulse Oximetry 97 05/04/24 06:06 Oxygen Delivery Method Room Air 05/04/24 06:06 MDM - SOB/Dyspnea MDM Narrative Medical decision making narrative: 63-year-old female to the emergency department with chief complaint of shortness of breath, cough, flulike illness. She is hypoxic on room air in the upper 80s. She was placed on 2 L nasal cannula. Otherwise stable vitals. DuoNeb treatment, Solu-Medrol ordered for symptom control. Basic labs, chest x-ray. Care was signed out to Dr. Powell. Working diagnosis: Acute hypoxemic respiratory failure COPD exacerbation COVID-19 Medical Records Attestation: I reviewed the patient's medical records. Lab Data Labs: Lab Results 05/04/24 Range/Units 06:15 Influenza Type A Ag Negative Influenza Type B Ag Negative SARS-CoV-2 Ag (CV2AG) Positive A (NEGATIVE) Imaging Data Chest x-ray: Attestation: I have reviewed the pertinent imaging results. Radiologist's impression: ITS Impressions Chest X-Ray 05/04/24 06:11 IMPRESSION: 1. No acute cardiopulmonary abnormality. Electronically authenticated by: Mendez SCHAEFFER Date: 05/04/2024 06:34 ECG Data Attestation: I personally reviewed and interpreted this ECG as follows: (Normal sinus rhythm at a rate of 81. No STEMI. Normal QTc at 385.) Critical Care Time Critical Care Time Critical Care Time: Yes Total Critical Care Time: 32 Attestation: Critical Care Procedure Note Authorized and Performed by: Arsenio Martin DO Total critical care time: 32 minutes Due to a high probability of clinically significant, life threatening deterioration, the patient required my highest level of preparedness to intervene emergently and I personally spent this critical care time directly and personally managing the patient. This critical care time included obtaining a history; examining the patient; pulse oximetry; ordering and review of studies; arranging urgent treatment with development of a management plan; evaluation of patient's response to treatment; frequent reassessment; and, discussions with other providers. This critical care time was performed to assess and manage the high probability of imminent, life-threatening deterioration that could result in multi-organ failure. It was exclusive of separately billable procedures and treating other patients and teaching time. Please see MDM section and the rest of the note for further information on patient assessment and treatment. Discharge Plan Discharge Chief Complaint: Shortness of Breath/Dyspnea Clinical Impression: COVID-19, Acute exacerbation of chronic obstructive pulmonary disease (COPD), Acute hypoxemic respiratory failure Patient Disposition: Still a Patient Prescriptions / Home Meds: No Action pantoprazole 40 mg tablet,delayed release (DR/EC) 40 mg PO DAILY albuterol sulfate 90 mcg/actuation HFA aerosol inhaler 1 puff INHALATION Q4H PRN (Reason: shortness of breath or wheezing) isosorbide mononitrate 30 mg Tablet Extended Release 24 Hr 30 mg PO QD Qty: 30 11RF carvedilol [Coreg] 12.5 mg tablet 12.5 mg PO BID Qty: 60 11RF Rx Instructions: must administer with a meal/food nitroglycerin 0.4 mg tablet, sublingual 0.4 mg sublingual Q5M MDD 3/day PRN (Reason: chest pain) Qty: 30 11RF Rx Instructions: do not exceed 3 doses per episode atorvastatin 80 mg tablet 80 mg PO DAILY alprazolam 1 mg tablet 1 mg PO BID clopidogrel 75 mg tablet 75 mg PO DAILY aspirin 81 mg tablet,delayed release (DR/EC) 81 mg PO DAILY buspirone 10 mg tablet 10 mg PO BID gabapentin 300 mg capsule 300 mg PO TID dapagliflozin propanediol [Farxiga] 10 mg tablet 10 mg PO DAILY trazodone 50 mg tablet 50 mg PO DAILY PRN (Reason: insomnia) levothyroxine 75 mcg Tablet 75 mcg PO ACB Qty: 30 11RF prednisone 10 mg tablet 50 mg PO DAILY Qty: 47 0RF Rx Instructions: 5/day for 3 days. 4/day for 3 days, 3/day for 3 days, 2/day for 3 days, 1/day for 3 days, 1/2 /day for 4 days levofloxacin 750 mg tablet 750 mg PO DAILY 10 Days Qty: 10 0RF promethazine-DM 6.25-15 mg/5 mL syrup 5 ml PO Q4H PRN (Reason: cough) Qty: 118 0RF Print Language: Vietnamese Referrals: Charlie Richardson MD [Primary Care Provider] - 1 week
[2024-05-04 07:08] LABS: Basophils Percent Auto 0.2 % (0.2-2.0); Eosinophils Absolute Auto 0.1 10^3/uL (0.0-0.7); Eosinophils Percent Auto 0.5 % (0.9-7.0); Hematocrit 40.6 % (36.0-48.0); Hemoglobin 12.4 g/dL (12.0-16.0); Immature Granulocytes Abs Auto 0.03 10^3/uL (0.00-0.03); Immature Granulocytes Pct Auto 0.3 % (0.0-0.5); Lymphocytes Absolute Auto 1.6 10^3/uL (1.2-3.8); Lymphocytes Percent Auto 17.4 % (20.5-60.0); Mean Corpuscular HGB Conc 30.5 g/dL (29.9-35.2); Mean Corpuscular Hemoglobin 27.7 pg (26.7-34.0); Mean Corpuscular Volume 90.6 fL (81.0-99.0); Monocytes Percent Auto 11.4 % (1.7-12.0); Neutrophils Absolute Auto 6.4 10^3/uL (1.4-6.5); Neutrophils Percent Auto 70.2 % (43.0-75.0); Platelet Count 241 10^3/uL (150-450); Red Blood Count 4.48 10^6/uL (4.20-5.40); Red Cell Distribution Width 15.5 % (11.0-15.0); White Blood Count 9.1 10^3/uL (4.0-11.0)
[2024-05-04 07:24] LABS: INR 0.95; Partial Thromboplastin Time 25.2 sec (22.3-36.2); Prothrombin Time 10.1 sec (9.0-11.6)
[2024-05-04] MEDS: IPRATROPIUM/ALBUTEROL SULFATE 3 ML AMPUL.NEB IH ×4 (07:29→22:01)
[2024-05-04 07:35] LABS: Anion Gap 11.6; Carbon Dioxide 29.5 mmol/L (21.0-32.0); Chloride 108 mmol/L (98-107); Glucose 100 mg/dL (74-106); Potassium 4.1 mmol/L (3.5-5.1); Sodium 145 mmol/L (136-145)
[2024-05-04 07:36] LABS: BUN Creatinine Ratio 13.5; Calcium 8.9 mg/dL (8.5-10.1); Estimated GFR (African America >60 (>=60 mL/min/1.73m^2); Estimated GFR (Non-African Ame 50 (>=60 mL/min/1.73m^2)
[2024-05-04 07:41] LABS: Troponin I High Sensitivity 57.5 pg/mL (4.0-51.3)
[2024-05-04] MEDS: METHYLPREDNISOLONE SOD SUCC PF 125 MG/2 ML VIAL IVP (08:23)
--- NOTE | 2024-05-04 08:41 | PC.NURSE ---
Pulse Ox. 87% on room air, oxygen applied at 2 LPM/NC and pulse ox. up to 95% on 2 L oxygen.
--- OUTSIDE RECORDS SUMMARY | 2024-05-04 09:50 | XMS_ITS | CCD ---
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 Repository (1 source) BEE VENOM PROTEIN (HONEY BEE); 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: [BEE VENOM PROTEIN (HONEY BEE)] Propensity to adverse reactions to drug (disorder) [address] [facility] Repository (1 source) HAY FEVER AND ALLERGY RELIEF; 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: [HAY FEVER AND ALLERGY RELIEF] Propensity to adverse reactions to drug (disorder) [address] 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; 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: [Old [...] 2 Chronic Other aftercare (1 source) Other half-way (current) drug therapy; 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: [OTH DISABILITY BENEFITS SPECIALIST CURRENT DRUG THERAPY] Onset: 3 Episodic Other aftercare (1 source) penitentiary (current) use of aspirin; 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: [GROUP HOME CURRENT USE OF ASPIRIN] Onset: 3 Episodic Other aftercare (1 source) penitentiary (current) use of antithrombotics/antipl atelets; 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: [GROUP HOME ANTITHROMBOT/ANTIPLATL ETS] Onset: 3 Episodic Other aftercare (1 source) 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 30on 08-11-2023 30 Daily Case Managemen t Update Multidisciplinary rounds have been completed. Barriers to Discharge: Patient is medically ready for discharge at this time. AVS has been completed. Patient will discharge to home. No further OTM needs at this time. [facility] will continue to follow patient through [...] appropriate for patient?: Yes New Consults: Normal [facility] 30 The patient is Moderately [...] and maintained or improved Outcome: Progressing Normal [facility] BASIC METABOLIC PANELon 07-14 Anion gap [Moles/Vol] 13 mmol/L Normal 7-20 [facility] Comment on above: Performed By: #### L [id number] ####[facility] (BEAKER)[address] [place] [address] Calcium [Mass/Vol] 9.0 mg/dL Normal 8.6-10.3 [facility] Comment on above: Performed By: #### L [id number] ####[facility] (BEAKER)[address] [place] [address] Chloride [Moles/Vol] 97 mmol/L Low 98-107 [facility] Comment on above: Performed By: #### L [id number] ####[facility] (BEAKER)[address] [place] [address] CO2 [Moles/Vol] 29 mmol/L Normal 21-31 [facility] Comment on above: Performed By: #### L [id number] ####[facility] ([facility])[address] [place] [address] Creatinine [Mass/Vol] 1.06 mg/dL Normal 0.60-1.20 [facility] Comment on above: Performed By: #### L [id number] ####[facility] ([facility])[address] [place] [address] GLOMERULAR FILTRATION RATE ML/MIN/1.73 SQ M.PREDICTED 59.4 mL/min/1.73m*2 Low >60.0 [facility] Comment on above: Result Comment: The [facility]???s estimated glomerular filtration rate (eGFR) [...] of individuals. Performed By: #### L [id number] ####[facility] ([facility])[address] [place] [address] Glucose [Mass/Vol] 178 mg/dL High 70-100 [facility] Comment on above: Performed By: #### L [id number] ####[facility] ([facility])[address] [facility] [place] [address] Potassium [Moles/Vol] 4.3 mmol/L Normal 3.5-5.1 [facility] Comment on above: Performed By: #### L [id number] ####[facility] ([facility])[address] [facility] [place] [address] Sodium [Moles/Vol] 135 mmol/L Low 136-145 [facility] Comment on above: Performed By: #### L [id number] ####[facility] (BEAKER)[address] [place] [address] Urea nitrogen [Mass/Vol] 20 mg/dL Normal 7-[address] [facility] Comment on above: Performed By: #### L [id number] ####[facility] (BEAKER)[address] [place] [address] UREA NITROGEN/CREATININE (MASS RATIO) IN SER/PLAS 18.[address] [facility] Comment on above: Performed By: #### L [id number] ####[facility] ([facility])[address] [place] [address] CBCon 08-11-2023 Erythrocyte distribution width (RBC) [Ratio] 17.0 % High 11.5-15.[address] [facility] Comment on above: Performed By: #### L [id number] #### [facility] ([facility]) [address] [place] [address] ERYTHROCYTE MEAN CORPUSCULAR HEMOGLOBIN CONCENTRATION (G/DL) BY AUTOMATED 31.6 g/dL Low 32.0-35.[address] [facility] Comment on above: Performed By: #### L [id number] #### [facility] ([facility]) [address] [place] [address] Hematocrit (Bld) [Volume fraction] 40.8 % Normal 36.0-48.[address] [facility] Comment on above: Performed By: #### L [id number] #### [facility] (BEAKER) [address] [place] [address] Hemoglobin (Bld) [Mass/Vol] 12.9 g/dL Normal 12.0-15.[address] [facility] Comment on above: Performed By: #### L [id number] #### [facility] (BEAKER) [address] [place] [address] MCH (RBC) [Entitic mass] 28.0 pg Normal 27.0-33.[address] [facility] Comment on above: Performed By: #### L [id number] #### [facility] (BEAKER) [address] [place] [address] MCV (RBC) [Entitic vol] 88.5 fL Normal 82.0-98.[address] [facility] Comment on above: Performed By: #### L [id number] #### [facility] ([facility]) [address] [place] [address] PLATELETS (10*3/UL) IN BLOOD AUTOMATED COUNT 239 10*3/uL Normal 150-[address] [facility] Comment on above: Performed By: #### L [id number] #### [facility] ([facility]) [address] [place] [address] RBC (Bld) [#/Vol] 4.61 10*6/uL Normal 3.80-5.00 [facility] Comment on above: Performed By: #### L [id number] #### [facility] ([facility]) [address] [place] [address] WBC (Bld) [#/Vol] 7.21 10*3/uL Normal 4.00-10.60 [facility] Comment on above: Performed By: #### L [id number] #### [facility] ([facility]) [address] [place] [address] NURSNOTEon 08-11-2023 NURSNOTE Pt discharged via wheelchair without incident [facility] NURSNOTE AVS reviewed with patient, pt verifies understanding Normal [facility] 08-10-2023 30 The patient is Moderately Stable [...] and maintained or improved Outcome: Progressing Normal [facility] HPon 08-10-2023 History Of Present Illness Vivian [...] initial encounter Reposition lead Loree Chance MD [facility] NURSNOTEon 08-10-2023 NURSNOTE CHG wipes and betadine nasal swabs completed. [facility] 07-13-2023 36 Pts phone line is no t working [facility] 07-12-2023 36 Unable to reach pt o r leave message, phone line not in service [facility] 36 Patients phone is no t in working order. Tried calling pts ER contact but it is a food pantry and was only a VM option. Did not leave message. [facility] 07-11-2023 30 The patient is Moderately Stable - Low risk of patient condition declining or worsening The patient's goals for the shift include pain control The clinical goals for the shift include maintain pacemaker precautions Over the shift, the patient did not make progress toward the following goals. Barriers to progression include na. Recommendations to address these barriers include na. [facility] 30 The patient is Moderately [...] safe level of function Outcome: Progressing Normal [facility] BASIC METABOLIC PANELon - Anion gap [Moles/Vol] 15 mmol/L Normal 7-20 [facility] Comment on above: Performed By: #### L [id number] #### [facility] ([facility]) [address] [place] [address] Calcium [Mass/Vol] 9.4 mg/dL Normal 8.6-10.3 [facility] Comment on above: Performed By: #### L [id number] #### [facility] (AKER) [address] [place] [address] Chloride [Moles/Vol] 97 mmol/L Low 98-107 [facility] Comment on above: Performed By: #### L [id number] #### [facility] (BEAKER) [address] [place] [address] CO2 [Moles/Vol] 27 mmol/L Normal 21-31 [facility] Comment on above: Performed By: #### L [id number] #### [facility] (AKER) [address] [place] [address] Creatinine [Mass/Vol] 1.15 mg/dL Normal 0.60-1.20 [facility] Comment on above: Performed By: #### L [id number] #### [facility] ([facility]) [address] [place] [address] GLOMERULAR FILTRATION RATE ML/MIN/1.73 SQ M.PREDICTED 53.9 mL/min/1.73m*2 Low >60.0 [facility] Comment on above: Result Comment: The [facility]???s estimated glomerular filtration rate (eGFR) [...] individuals. Performed By: #### L [id number] #### [facility] ([facility]) [address] [place] [address] Glucose [Mass/Vol] 143 mg/dL High 70-100 [facility] Comment on above: Performed By: #### L [id number] #### [facility] ([facility]) [address] [place] [address] Potassium [Moles/Vol] 3.9 mmol/L Normal 3.5-5.1 [facility] Comment on above: Performed By: #### L [id number] #### [facility] ([facility]) [address] [place] [address] Sodium [Moles/Vol] 135 mmol/L Low 136-145 [facility] Comment on above: Performed By: #### L [id number] #### [facility] ([facility]) [address] [place] [address] Urea nitrogen [Mass/Vol] 32 mg/dL High 7-[address] [facility] Comment on above: Performed By: #### L [id number] #### [facility] ([facility]) [address] [place] [address] UREA NITROGEN/CREATININE (MASS RATIO) IN SER/PLAS 27.[address] [facility] Comment on above: Performed By: #### L [id number] #### [facility] ([facility]) [address] [place] [address] CBC WITH AUTO DIFFERENTIALon 07-11-2023 Basophils (Bld) [#/Vol] 0.03 10*3/uL Normal 0.00-0.[address] [facility] Comment on above: Performed By: #### L [id number] #### [facility] ([facility]) [address] [place] [address] Basophils/100 WBC (Bld) 0.3 % Normal 0.0-1.[address] [facility] Comment on above: Performed By: #### L [id number] #### [facility] ([facility]) [address] [place] [address] Eosinophils (Bld) [#/Vol] 0.32 10*3/uL Normal 0.00-0.[address] [facility] Comment on above: Performed By: #### L [id number] #### [facility] ([facility]) [address] [place] [address] Eosinophils/100 WBC (Bld) 2.8 % Normal 0.0-6.[address] [facility] Comment on above: Performed By: #### L [id number] #### [facility] ([facility]) [address] [place] [address] Erythrocyte distribution width (RBC) [Ratio] 15.3 % High 11.5-15.[address] [facility] Comment on above: Performed By: #### L [id number] #### [facility] ([facility]) [address] [place] [address] ERYTHROCYTE MEAN CORPUSCULAR HEMOGLOBIN CONCENTRATION (G/DL) BY AUTOMATED 32.0 g/dL Normal 32.0-35.[address] [facility] Comment on above: Performed By: #### L [id number] #### [facility] ([facility]) [address] [place] [address] Hematocrit (Bld) [Volume fraction] 40.9 % Normal 36.0-48.[address] [facility] Comment on above: Performed By: #### L [id number] #### [facility] (BEAKER) [address] [place] [address] Hemoglobin (Bld) [Mass/Vol] 13.1 g/dL Normal 12.0-15.[address] [facility] Comment on above: Performed By: #### L [id number] #### [facility] ([facility]) [address] [place] [address] Immature granulocytes (Bld) [#/Vol] 0.04 10*3/uL Normal 0.00-0.[address] [facility] Comment on above: Performed By: #### L [id number] #### [facility] ([facility]) [address] [place] [address] Immature granulocytes/100 WBC (Bld) 0.3 % Normal 0.0-1.[address] [facility] Comment on above: Performed By: #### L [id number] #### [facility] ([facility]) [address] [place] [address] Lymphocytes (Bld) [#/Vol] 3.16 10*3/uL Normal 1.20-4.[address] [facility] Comment on above: Performed By: #### L [id number] #### [facility] ([facility]) [address] [place] [address] Lymphocytes/100 WBC (Bld) 27.4 % Normal 20.0-45.[address] [facility] Comment on above: Performed By: #### L [id number] #### [facility] ([facility]) [address] [place] [address] MCH (RBC) [Entitic mass] 27.9 pg Normal 27.0-33.[address] [facility] Comment on above: Performed By: #### L [id number] #### [facility] ([facility]AKER) [address] [place] [address] MCV (RBC) [Entitic vol] 87.0 fL Normal 82.0-98.[address] [facility] Comment on above: Performed By: #### L [id number] #### [facility] ([facility]ER) [address] [place] [address] Monocytes (Bld) [#/Vol] 0.85 10*3/uL Normal 0.10-1.[address] [facility] Comment on above: Performed By: #### L [id number] #### [facility] ([facility]ER) [address] [place] [address] Monocytes/100 WBC (Bld) 7.4 % Normal 5.0-12.[address] [facility] Comment on above: Performed By: #### L [id number] #### [facility] ([facility]ER) [address] [place] [address] Neutrophils (Bld) [#/Vol] 7.12 10*3/uL Normal 1.60-7.[address] [facility] Comment on above: Performed By: #### L [id number] #### [facility] ([facility]) [address] [place] [address] Neutrophils/100 WBC (Bld) 61.8 % Normal 40.0-72.[address] [facility] Comment on above: Performed By: #### L [id number] #### [facility] ([facility]) [address] [place] [address] NRBC (PER 100 WBCS) BY AUTOMATED COUNT 0.0 % Normal [address] [facility] Comment on above: Performed By: #### L [id number] #### [facility] ([facility]ER) [address] [place] [address] PLATELETS (10*3/UL) IN BLOOD AUTOMATED COUNT 339 10*3/uL Normal 150-[address] [facility] Comment on above: Performed By: #### L [id number] #### [facility] ([facility]) [address] [place] [address] RBC (Bld) [#/Vol] 4.70 10*6/uL Normal 3.80-5.00 [facility] Comment on above: Performed By: #### L [id number] #### [facility] ([facility]) [address] [place] [address] WBC (Bld) [#/Vol] 11.52 10*3/uL High 4.00-10.60 [facility] Comment on above: Performed By: #### L [id number] #### [facility] ([facility]) [address] [place] [address] 30on 07-10-2023 30 Problem: Pain - Adul [...] complex ne (more content not included)... Normal [facility] 30 Daily Case Managemen t [...] Consultation Consultation and Management 07/06/[address] [facility] 30 The patient is Moderately [...] and behaviors that affect risk of falls [place] fall precautions as indicated by assessment Educate [...] and prevent overall improvement and discharge Normal [facility] BASIC METABOLIC PANELon - Anion gap [Moles/Vol] 13 mmol/L Normal 7-20 [facility] Comment on above: Performed By: #### L [id number] ####[facility] (BEAKER)[address] [place] [address] Calcium [Mass/Vol] 9.9 mg/dL Normal 8.6-10.3 [facility] Comment on above: Performed By: #### L [id number] ####[facility] (BEAKER)[address] [place] [address] Chloride [Moles/Vol] 97 mmol/L Low 98-107 [facility] Comment on above: Performed By: #### L [id number] ####[facility] (BEAKER)[address] [place] [address] CO2 [Moles/Vol] 30 mmol/L Normal 21-31 [facility] Comment on above: Performed By: #### L [id number] ####[facility] ([facility])[address] [place] [address] Creatinine [Mass/Vol] 1.06 mg/dL Normal 0.60-1.20 [facility] Comment on above: Performed By: #### L [id number] ####[facility] ([facility]ER)[address] [place] [address] GLOMERULAR FILTRATION RATE ML/MIN/1.73 SQ M.PREDICTED 59.4 mL/min/1.73m*2 Low >60.0 [facility] Comment on above: Result Comment: [facility]???s estimated glomerular filtration rate (eGFR) [...] of individuals. Performed By: #### L [id number] ####[facility] ([facility])[address] [place] [address] Glucose [Mass/Vol] 139 mg/dL High 70-100 [facility] Comment on above: Performed By: #### L [id number] ####[facility] ([facility])[address] [place] [address] Potassium [Moles/Vol] 3.9 mmol/L Normal 3.5-5.1 [facility] Comment on above: Performed By: #### L [id number] ####[facility] ([facility])[address] [place] [address] Sodium [Moles/Vol] 136 mmol/L Normal 136-145 [facility] Comment on above: Performed By: #### L [id number] ####[facility] ([facility])[address] [place] [address] Urea nitrogen [Mass/Vol] 23 mg/dL Normal 7-[address] [facility] Comment on above: Performed By: #### L [id number] ####[facility] ([facility])[address] [place] [address] UREA NITROGEN/CREATININE (MASS RATIO) IN SER/PLAS 21.[address] [facility] Comment on above: Performed By: #### L [id number] ####[facility] ([facility])[address] [place] [address] CBC WITH AUTO DIFFERENTIALon 07-10-2023 Basophils (Bld) [#/Vol] 0.02 10*3/uL Normal 0.00-0.[address] [facility] Comment on above: Performed By: #### L [id number] ####[facility] ([facility])[address] [place] [address] Basophils/100 WBC (Bld) 0.2 % Normal 0.0-1.[address] [facility] Comment on above: Performed By: #### L [id number] ####[facility] ([facility]ER)[address] [place] [address] Eosinophils (Bld) [#/Vol] 0.53 10*3/uL High 0.00-0.[address] [facility] Comment on above: Performed By: #### L [id number] ####[facility] ([facility]ER)[address] [place] [address] Eosinophils/100 WBC (Bld) 5.0 % Normal 0.0-6.[address] [facility] Comment on above: Performed By: #### L [id number] ####[facility] ([facility]ER)[address] [place] [address] Erythrocyte distribution width (RBC) [Ratio] 15.3 % High 11.5-15.[address] [facility] Comment on above: Performed By: #### L [id number] ####[facility] ([facility]ER)[address] [place] [address] ERYTHROCYTE MEAN CORPUSCULAR HEMOGLOBIN CONCENTRATION (G/DL) BY AUTOMATED 32.9 g/dL Normal 32.0-35.[address] [facility] Comment on above: Performed By: #### L [id number] ####[facility] ([facility])[address] [place] [address] Hematocrit (Bld) [Volume fraction] 42.6 % Normal 36.0-48.[address] [facility] Comment on above: Performed By: #### L [id number] ####[facility] ([facility]ER)[address] [place] [address] Hemoglobin (Bld) [Mass/Vol] 14.0 g/dL Normal 12.0-15.[address] [facility] Comment on above: Performed By: #### L [id number] ####[facility] ([facility])[address] [place] [address] Immature granulocytes (Bld) [#/Vol] 0.02 10*3/uL Normal 0.00-0.[address] [facility] Comment on above: Performed By: #### L [id number] ####[facility] ([facility])[address] [place] [address] Immature granulocytes/100 WBC (Bld) 0.2 % Normal 0.0-1.[address] [facility] Comment on above: Performed By: #### L [id number] ####[facility] ([facility])[address] [place] [address] Lymphocytes (Bld) [#/Vol] 3.34 10*3/uL Normal 1.20-4.[address] [facility] Comment on above: Performed By: #### L [id number] ####[facility] ([facility])[address] [place] [address] Lymphocytes/100 WBC (Bld) 31.7 % Normal 20.0-45.[address] [facility] Comment on above: Performed By: #### L [id number] ####[facility] ([facility])[address] [place] [address] MCH (RBC) [Entitic mass] 28.3 pg Normal 27.0-33.[address] [facility] Comment on above: Performed By: #### L [id number] ####[facility] ([facility])[address] [place] [address] MCV (RBC) [Entitic vol] 86.2 fL Normal 82.0-98.[address] [facility] Comment on above: Performed By: #### L [id number] ####[facility] ([facility]ER)[address] [place] [address] Monocytes (Bld) [#/Vol] 0.60 10*3/uL Normal 0.10-1.[address] [facility] Comment on above: Performed By: #### L [id number] ####[facility] ([facility])[address] [place] [address] Monocytes/100 WBC (Bld) 5.7 % Normal 5.0-12.[address] [facility] Comment on above: Performed By: #### L [id number] ####[facility] ([facility])[address] [place] [place] [address] Neutrophils (Bld) [#/Vol] 6.01 10*3/uL Normal 1.60-7.[address] [facility] Comment on above: Performed By: #### L [id number] ####[facility] ([facility])[address] [place] [place] [address] Neutrophils/100 WBC (Bld) 57.2 % Normal 40.0-72.[address] [facility] Comment on above: Performed By: #### L [id number] ####[facility] ([facility])[address] [place] [place] [address] NRBC (PER 100 WBCS) BY AUTOMATED COUNT 0.0 % Normal [address] [facility] Comment on above: Performed By: #### L [id number] ####[facility] CENTER)[address] [address] PLATELETS (10*3/UL) IN BLOOD AUTOMATED COUNT 329 10*3/uL Normal 150-[address] [facility] Comment on above: Performed By: #### L [id number] ####[facility] ([facility])[address] [address] RBC (Bld) [#/Vol] 4.94 10*6/uL Normal 3.80-5.00 [facility] Comment on above: Performed By: #### L [id number] ####[facility] ([facility])[address] [address] WBC (Bld) [#/Vol] 10.52 10*3/uL Normal 4.00-10.60 [facility] Comment on above: Performed By: #### L [id number] ####[facility] ([facility])[address] [place] [address] on 07-10-2023 History Of Present Illness Vivian [...] Problems: Junctional bradycardia Pacemaker Loree Chance MD [facility] 30on 07-09-2023 30 Problem: Cardiovascular - Adult [...] the shift include pacemaker placement without issues [facility] 30 Daily Case Managemen t [...] Consultation Consultation and Management 02/23/[address] [facility] BASIC METABOLIC PANELon 02-2 Anion gap [Moles/Vol] 9 mmol/L Normal 7-20 [facility] Comment on above: Performed By: #### L [id number] #### [facility] ([facility]) [address] [place] [address] Calcium [Mass/Vol] 9.1 mg/dL Normal 8.6-10.3 [facility] Comment on above: Performed By: #### L [id number] #### [facility] ([facility]) [address] [place] [address] Chloride [Moles/Vol] 99 mmol/L Normal 98-107 [facility] Comment on above: Performed By: #### L [id number] #### [facility] ([facility]) [address] [place] [address] CO2 [Moles/Vol] 32 mmol/L High 21-31 [facility] Comment on above: Performed By: #### L [id number] #### [facility] ([facility]) [address] [place] [address] Creatinine [Mass/Vol] 0.98 mg/dL Normal 0.60-1.20 [facility] Comment on above: Performed By: #### L [id number] #### [facility] ([facility]) [address] [place] [address] GLOMERULAR FILTRATION RATE ML/MIN/1.73 SQ M.PREDICTED 65.3 mL/min/1.73m*2 Normal >60.0 [facility] Comment on above: Result Comment: [facility]???s estimated glomerular filtration rate (eGFR) [...] individuals. Performed By: #### L [id number] #### [facility] ([facility]) [address] [place] [address] Glucose [Mass/Vol] 131 mg/dL High 70-100 [facility] Comment on above: Performed By: #### L [id number] #### [facility] ([facility]) [address] [place] [address] Potassium [Moles/Vol] 4.3 mmol/L Normal 3.5-5.1 [facility] Comment on above: Performed By: #### L [id number] #### [facility] ([facility]) [address] [place] [address] Sodium [Moles/Vol] 136 mmol/L Normal 136-145 [facility] Comment on above: Performed By: #### L [id number] #### [facility] ([facility]) [address] [place] [address] Urea nitrogen [Mass/Vol] 23 mg/dL Normal 7-[address] [facility] Comment on above: Performed By: #### L [id number] #### [facility] ([facility]) [address] [place] [address] UREA NITROGEN/CREATININE (MASS RATIO) IN SER/PLAS 23.[address] [facility] Comment on above: Performed By: #### L [id number] #### [facility] ([facility]) [address] [place] [address] CBC WITH AUTO DIFFERENTIALon 07-09-2023 Basophils (Bld) [#/Vol] 0.03 10*3/uL Normal 0.00-0.[address] [facility] Comment on above: Performed By: #### L [id number] #### [facility] ([facility]) [address] [place] [address] Basophils/100 WBC (Bld) 0.3 % Normal 0.0-1.[address] [facility] Comment on above: Performed By: #### L [id number] #### [facility] ([facility]) [address] [place] [address] Eosinophils (Bld) [#/Vol] 0.54 10*3/uL High 0.00-0.[address] [facility] Comment on above: Performed By: #### L [id number] #### [facility] ([facility]) [address] [place] [address] Eosinophils/100 WBC (Bld) 4.9 % Normal 0.0-6.[address] [facility] Comment on above: Performed By: #### L [id number] #### [facility] ([facility]) [address] [place] [place] [address] Erythrocyte distribution width (RBC) [Ratio] 15.0 % Normal 11.5-15.[address] [facility] Comment on above: Performed By: #### L [id number] #### [facility] ([facility]) [address] [place] [address] ERYTHROCYTE MEAN CORPUSCULAR HEMOGLOBIN CONCENTRATION (G/DL) BY AUTOMATED 32.8 g/dL Normal 32.0-35.[address] [facility] Comment on above: Performed By: #### L [id number] #### [facility] ([facility]) [address] [place] [address] Hematocrit (Bld) [Volume fraction] 37.5 % Normal 36.0-48.[address] [facility] Comment on above: Performed By: #### L [id number] #### [facility] ([facility]) [address] [place] [address] Hemoglobin (Bld) [Mass/Vol] 12.3 g/dL Normal 12.0-15.[address] [facility] Comment on above: Performed By: #### L [id number] #### [facility] ([facility]) [address] [place] [address] Immature granulocytes (Bld) [#/Vol] 0.03 10*3/uL Normal 0.00-0.[address] [facility] Comment on above: Performed By: #### L [id number] #### [facility] ([facility]) [address] [place] [address] Immature granulocytes/100 WBC (Bld) 0.3 % Normal 0.0-1.[address] [facility] Comment on above: Performed By: #### L [id number] #### [facility] ([facility]) [address] [place] [address] Lymphocytes (Bld) [#/Vol] 3.76 10*3/uL Normal 1.20-4.[address] [facility] Comment on above: Performed By: #### L [id number] #### [facility] ([facility]) [address] [place] [address] Lymphocytes/100 WBC (Bld) 34.1 % Normal 20.0-45.[address] [facility] Comment on above: Performed By: #### L [id number] #### [facility] ([facility]) [address] [place]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 doctor, nurse practitioner, or physician?s assistant program director for ongoing care. If your symptoms [...] opioids can be used to help relieve palcblzk-uz-lripab pain and are often prescribed following a [...] be struggling with addiction, tell your health manager long term care and ask for guidance or call [employer]?S National Helpline at 1-845-132-HELP. v Source: [place] Department of Health and Human Services/Center for Disease Control & Preve (more content not included)... Normal [facility] ETHANOLon 07-06-2023 ETHANOL (MG/DL) IN SER/PLAS <[address] [facility] Comment on above: Performed By: #### L [id number] ####[facility] ([facility])[address] [place] [address] ETHANOL CALCULATED (%) Normal [facility] Comment on above: Performed By: #### L [id number] ####[facility] ([facility])[address] [place] [address] HEMOGLOBIN A1Con 07-06-2023 Glucose [Mass/Vol] 148 mg/dL Normal [facility] Comment on above: Performed By: #### L [id number] #### [facility] ([facility]) [address] [place] [address] HbA1c (Bld) [Mass fraction] 6.8 % High 4.0-6.[address] [facility] Comment on above: Performed By: #### L [id number] #### [facility] ([facility]) [address] [place] [address] LACTIC ACID WITH 4 HOUR REFL EXon 07-06-2023 LACTATE (MMOL/L) IN SER/PLAS 1.8 mmol/L Normal 0.5-2.[address] [facility] Comment on above: Performed By: #### L [id number] ####[facility] ([facility])[address] [place] [address] LIPID PANELon 07-06-2023 CHOL/HDL 3.0 mg/dL Normal [facility] Comment on above: Performed By: #### L [id number] #### [facility] ([facility]) [address] [place] [address] Cholesterol [Mass/Vol] 143 mg/dL Normal 120-[address] [facility] Comment on above: Performed By: #### L [id number] #### [facility] ([facility]) [address] [place] [address] Magnesium [Mass/Vol] 159 mg/dL High 40-149 [facility] Comment on above: Result Comment: TRIG LYCERIDE REFERENCE RANGE: 20 YEARS AND OLDER CARDIOVASCULAR RISK LESS THAN 150 mg/dL LOW RISK 150 TO 199 mg/dL BORDERLINE RISK 200 mg/dL AND GREATER HIGH RISK Performed By: #### L [id number] #### [facility] ([facility]) [address] [place] [address] Magnesium [Mass/Vol] 63 mg/dL Normal 0-160 [facility] Comment on above: Performed By: #### L [id number] #### [facility] ([facility]) [address] [place] [address] Magnesium [Mass/Vol] 48 mg/dL Normal 23-92 [facility] Comment on above: Performed By: #### L [id number] #### [facility] ([facility]) [address] [place] [address] NON HDL CHOL. (LDL+VLDL) [address] [facility] Comment on above: Performed By: #### L [id number] #### [facility] ([facility]) [address] [place] [address] TOTAL VLDL-C 32 mg/dL Normal 0-40 [facility] Comment on above: Performed By: #### L [id number] #### [facility] ([facility]) [address] [place] [address] MAGNESIUMon 07-06-2023 Magnesium [Mass/Vol] 2.2 mg/dL Normal 1.9-2.7 [facility] Comment on above: Performed By: #### L [id number] #### [facility] ([facility]) [address] [place] [address] PHOSPHORUSon 07-06-2023 Magnesium [Mass/Vol] 5.2 mg/dL High 2.5-5.0 [facility] Comment on above: Performed By: #### L [id number] #### [facility] ([facility]) [address] [place] [address] PROTIME-INRon 07-06-2023 INR IN PPP BY COAGULATION ASSAY 1.00 Normal 0.90-1.[address] [facility] Comment [...] 1995;[id number]. Performed By: #### L [id number] #### [facility] [address] [place] [address] PROTHROMBIN TIME (PT) IN PPP BY COAGULATION ASSAY 13.2 Seconds Normal 12.3-14.[address] [facility] Comment on above: Performed By: #### L [id number] #### [facility] [address] [place] [address] TOXICOLOGY PANEL URINEon AMPHETAMINE+METHAMPHET AMINE SCREEN (PRESENCE) IN URINE Negative Normal Negative [facility] Comment on above: Performed By: #### L [id number] #### [facility]) [address] [place] [address] BARBITURATES PRESENCE IN URINE BY SCREEN METHOD Negative Normal Negative [facility] Comment on above: Performed By: #### L [id number] #### [facility] [address] [place] [address] Benzodiazepines Ql (U) Positive Abnormal Negative [facility] Comment on above: Performed By: #### L [id number] #### [facility] ([facility]) [address] [place] [address] CANNABINOID (PRESENCE) IN URINE BY SCREEN METHOD Positive Abnormal Negative [facility] Comment on above: Performed By: #### L [id number] #### [facility] ([facility]) [address] [place] [address] Cocaine Ql (U) Negative Normal Negative [facility] Comment on above: Performed By: #### L [id number] #### [facility] ([facility]) [address] [address] METHADONE (PRESENCE) IN URINE BY SCREEN METHOD Negative Normal Negative [facility] Comment on above: Performed By: #### L [id number] #### [facility] ([facility]) [address] [place] [address] OPIATES (PRESENCE) IN URINE BY SCREEN METHOD Negative Normal Negative [facility] Comment on above: Performed By: #### L [id number] #### [facility] ([facility]) [address] [place] [address] PHENCYCLIDINE PRESENCE IN URINE BY SCREEN METHOD Negative Normal Negative [facility] Comment on above: Performed By: #### L [id number] #### [facility] ([facility]) [address] [address] Propoxyphene Screen Ql (U) Negative Normal Negative [facility] Comment on above: Performed By: #### L [id number] #### [facility] ([facility]) [address] [place] [address] TRICYCLIC ANTIDEPRESSANTS (PRESENCE) IN URINE Positive Abnormal Negative [facility] Comment on above: Performed By: #### L [id number] #### [facility] ([facility]) [address] [place] [address] TROPONIN Ion 07-06-2023 Troponin I.cardiac [Mass/Vol] 0.12 ng/mL Critically high 0.00-0.[address] [facility] Comment on above: Result Comment: M-[place] EVIOUS CRITICAL RESULT Previous result verified on 07/06/2023 1236 on specimen/case [id number] called with component Troponin I for procedure Troponin I with value 0.11 ng/mL. Performed By: #### L [id number] #### [facility] ([facility]) [address] [place] [address] Troponin I.cardiac [Mass/Vol] 0.11 ng/mL Critically high 0.00-0.[address] [facility] Comment on above: Result Comment: [facility]-[place] EVIOUS CRITICAL RESULT Previous result verified on 07/06/2023 0444 on specimen/case [id number] called with component Troponin I for procedure Troponin I with value 0.12 ng/mL. Performed By: #### L [id number] #### [facility] ([facility]) [address] [place] [address] Troponin I.cardiac [Mass/Vol] 0.12 ng/mL Critically high 0.00-0.[address] [facility] Comment on above: Result Comment: M-CR ITICAL RESULT(S) REVIEWED, CALLED TO AND READ BACK BY PRIYANKA LEOS RN AT 0442 M-TROPONIN INITIAL CRITICAL HIGH; RESPUN AND RETESTED Performed By: #### L [id number] #### [facility] ([facility]) [address] [place] [address] TSH3 REFLEX TO FT4on 024 THYROTROPIN (MIU/L) IN SER/PLAS BY DETECTION LIMIT <= 0.05 MIU/L 4.25 mIU/L Normal 0.34-5.60 [facility] Comment on above: Performed By: #### L [id number] #### [facility] ([facility]) [address] [place] [address] Transfer Documentson 024 Transfer Documents [id number] 1.00TIFF Normal [facility] URINALYSIS WITH REFLEX CULTU REon 07-06-2023 BILIRUBIN, TOTAL PRESENCE IN URINE Negative Normal Negative [facility] Comment on above: Order Comment: Micro scopics not performed on urines with negative chemical reactions unless requested on original order. Performed By: #### L [id number] #### [facility] ([facility]) [address] [place] [address] Clarity (U) Clear Normal Clear [facility] Comment on above: Order Comment: Micro scopics not performed on urines with negative chemical reactions unless requested on original order. Performed By: #### L [id number] #### [facility] ([facility]) [address] [place] [address] Color (U) Yellow Normal Yellow [facility] Comment on above: Order Comment: Micro scopics not performed on urines with negative chemical reactions unless requested on original order. Performed By: #### L [id number] #### [facility] ([facility]) [address] [place] [address] Glucose (U) [Mass/Vol] mg/dL Abnormal Negative [facility] Comment on above: Order Comment: Micro scopics not performed on urines with negative chemical reactions unless requested on original order. Performed By: #### L [id number] #### [facility] ([facility] [facility]) [address] [place] [address] HEMOGLOBIN PRESENCE IN URINE Negative Normal Negative [facility] Comment on above: Order Comment: Micro scopics not performed on urines with negative chemical reactions unless requested on original order. Performed By: #### L [id number] #### [facility] ([facility]) [address] [place] [address] Ketones Ql (U) Negative Normal Negative [facility] Comment on above: Order Comment: Micro scopics not performed on urines with negative chemical reactions unless requested on original order. Performed By: #### L [id number] #### [facility] ([facility]) [address] [place] [address] LEUKOCYTE ESTERASE PRESENCE IN URINE BY TEST STRIP Negative Normal Negative [facility] Comment on above: Order Comment: Micro scopics not performed on urines with negative chemical reactions unless requested on original order. Performed By: #### L [id number] #### [facility] ([facility]) [address] [place] [address] NITRITE PRESENCE IN URINE Negative Normal Negative [facility] Comment on above: Order Comment: Micro scopics not performed on urines with negative chemical reactions unless requested on original order. Performed By: #### L [id number] #### [facility] ([facility]) [address] [place] [address] pH (U) 6.0 [pH] Normal 5.0-8.[address] [facility] Comment on above: Order Comment: Micro scopics not performed on urines with negative chemical reactions unless requested on original order. Performed By: #### L [id number] #### [facility] ([facility]) [address] [place] [address] Protein (U) [Mass/Vol] Negative Normal [facility] on above: Order Comment: Micro scopics not performed on urines with negative chemical reactions unless requested on original order. Performed By: #### L [id number] #### [facility] ([facility]) [address] [place] [address] Specific gravity (U) [Rel density] 1.013 Low 1.015-1.[address] [facility] Comment on above: Order Comment: Micro scopics not performed on urines with negative chemical reactions unless requested on original order. Performed By: #### L [id number] #### [facility] ([facility]) [address] [place] [address] BILIRUBIN, TOTAL PRESENCE IN URINE Negative Normal Negative [facility] Comment on above: Order Comment: Micro scopics not performed on urines with negative chemical reactions unless requested on original order. Performed By: #### L [id number] #### [facility] ([facility]) [address] [place] [address] Clarity (U) Clear Normal Clear [facility] Comment on above: Order Comment: Micro scopics not performed on urines with negative chemical reactions unless requested on original order. Performed By: #### L [id number] #### [facility] ([facility]) [address] [place] [address] Color (U) Yellow Normal Yellow [facility] Comment on above: Order Comment: Micro scopics not performed on urines with negative chemical reactions unless requested on original order. Performed By: #### L [id number] #### [facility] ([facility]) [address] [place] [address] Glucose (U) [Mass/Vol] mg/dL Abnormal Negative [facility] Comment on above: Order Comment: Micro scopics not performed on urines with negative chemical reactions unless requested on original order. Performed By: #### L [id number] #### [facility] ([facility]) [address] [place] [address] HEMOGLOBIN PRESENCE IN URINE Negative Normal Negative [facility] Comment on above: Order Comment: Micro scopics not performed on urines with negative chemical reactions unless requested on original order. Performed By: #### L [id number] #### [facility] ([facility]) [address] [place] [address] Ketones Ql (U) Negative Normal Negative [facility] Comment on above: Order Comment: Micro scopics not performed on urines with negative chemical reactions unless requested on original order. Performed By: #### L [id number] #### [facility] ([facility]) [address] [place] [address] LEUKOCYTE ESTERASE PRESENCE IN URINE BY TEST STRIP Negative Normal Negative [facility] Comment on above: Order Comment: Micro scopics not performed on urines with negative chemical reactions unless requested on original order. Performed By: #### L [id number] #### [facility] ([facility]) [address] [place] [address] NITRITE PRESENCE IN URINE Negative Normal Negative [facility] Comment on above: Order Comment: Micro scopics not performed on urines with negative chemical reactions unless requested on original order. Performed By: #### L [id number] #### [facility] ([facility]) [address] [place] [address] pH (U) 6.0 [pH] Normal 5.0-8.[address] [facility] Comment on above: Order Comment: Micro scopics not performed on urines with negative chemical reactions unless requested on original order. Performed By: #### L [id number] #### [facility] ([facility]) [address] [place] [address] Protein (U) [Mass/Vol] Negative Normal Negative [facility] Comment on above: Order Comment: Micro scopics not performed on urines with negative chemical reactions unless requested on original order. Performed By: #### L [id number] #### [facility] ([facility]) [address] [place] [address] Specific gravity (U) [Rel density] 1.017 Normal 1.015-1.[address] [facility] Comment on above: Order Comment: Micro scopics not performed on urines with negative chemical reactions unless requested on original order. Performed By: #### L [id number] #### [facility] ([facility]) [address] [place] [address] BMP 07-05-2023 Anion gap [Moles/Vol] 15 mmol/L Normal 6-16 [facility] Comment on above: Performed By: #### 1 2892820, 1288056, 72104660, 97525392, 4033183, 98305608, 8730239, 1463623, 6867787, 4583396 ####[facility] [address] [place] [address] BUN/Creat Ratio 15 No Units Normal 10-20 [facility] Comment on above: Performed By: #### 1 2491739, 0125045, 84894166, 99742935, 0309546, 65146872, 5895146, 5071263, 0231569, 2398281 ####[facility] [address] [place] [address] Calcium [Mass/Vol] 10.1 mg/dL Normal 8.9-11.1 [facility] Comment on above: Performed By: #### 1 1166857, 2851353, 22350062, 32046133, 7102631, 83443238, 7532775, 2131900, 2646291, 2533744 ####[facility] [address] [place] [address] Chloride [Moles/Vol] 96 mmol/L Low 101-111 [facility] Comment on above: Performed By: #### 1 3632764, 7974827, 37725226, 44692445, 5848478, 88211281, 4408671, 2099456, 5187050, 5287691 ####[facility] [address] [place] [address] CO2 [Moles/Vol] 32 mmol/L High 21-31 [facility] Comment on above: Performed By: #### 1 7145993, 3132525, 88939801, 88359481, 4404270, 90365613, 4915334, 5379685, 3008067, 6919728 ####[facility] [address] [place] [address] Creatinine [Mass/Vol] 1.5 mg/dL High 0.5-1.3 [facility] Comment on above: Performed By: #### 1 2607510, 5138958, 20480172, 58409187, 6114007, 15969087, 3768614, 8244167, 2074611, 6904379 ####[facility] [address] [place] [address] Glucose [Mass/Vol] 147 mg/dL Normal 55-199 [facility] Comment on above: Performed By: #### 1 7968728, 3960102, 61336078, 68020328, 3171957, 64995899, 6634705, 7938284, 6959243, 8147250 ####[facility] [address] [place] [address] Potassium [Moles/Vol] 5.1 mmol/L Normal 3.5-5.3 [facility] Comment on above: Performed By: #### 1 3796522, 8648692, 82843761, 81200296, 5378133, 38499785, 7432518, 8100288, 9315927, 8342236 ####[facility] [address] [place] [address] Sodium [Moles/Vol] 138 mmol/L Normal 135-145 [facility] Comment on above: Performed By: #### 1 4217903, 1115116, 96365310, 69807391, 9799274, 88812649, 7518092, 9613081, 1906353, 5291427 ####[facility] [address] [place] [address] Urea nitrogen [Mass/Vol] 22 mg/dL High 5-21 [facility] Comment on above: Performed By: #### 1 2865488, 9241098, 60953454, 41406871, 8608160, 56017794, 7057147, 5680139, 5030979, 5877882 ####[address] [address] BNPon 07-05-2023 Natriuretic peptide B (Bld) [Mass/Vol] 508 pg/mL High 5-80 [facility] Comment on above: Performed By: #### 1 1616123, 8769421, 47117135, 29485087, 2535716, 55758650, 2969741, 0245243, 5365774, 7282755 ####[address] [address] CBC w/ Auto Diffon Basophil Absolute 0.1 E9/L Normal 0.0-0.2 [facility] Comment on above: Performed By: #### 1 2336537, 3237977, 14803480, 62137337, 6256589, 01970684, 0487707, 7204774, 6668537, 5485222 ####[address] [place] [address] Basophils/100 WBC (Bld) 0.7 % Normal 0.0-2.0 [facility] Comment on above: Performed By: #### 1 4302440, 5219067, 41558751, 82038466, 5743047, 37865872, 8997970, 4026037, 6936122, 8190583 ####[address] [place] [address] Eos Absolute 0.4 E9/L Normal 0.0-0.5 [facility] Comment on above: Performed By: #### 1 6699705, 4026552, 19616426, 15261652, 3725105, 54321270, 6881963, 9929518, 0287765, 7939281 ####[place] [address] Eosinophils/100 WBC (Bld) 3.7 % Normal 0.0-8.0 [facility] Comment on above: Performed By: #### 1 9743105, 9500897, 71267408, 50716658, 3621996, 57902918, 9636836, 6740829, 0278226, 5053644 ####[place] [address] Erythrocyte distribution width (RBC) [Ratio] 16.8 % High 10.9-14.2 [facility] Comment on above: Performed By: #### 1 0488801, 4389239, 87052595, 48180636, 0986209, 57120366, 7312510, 8641021, 4394713, 2125909 ####[place] [address] Hematocrit (Bld) [Volume fraction] 46.0 % Normal 34.0-46.0 [facility] Comment on above: Performed By: #### 1 1564349, 0827745, 13129963, 85085325, 3109202, 14853359, 8489056, 6676447, 1055147, 9934324 ####[place] [address] Hemoglobin (Bld) [Mass/Vol] 15.1 g/dL Normal 12.0-16.0 [facility] Comment on above: Performed By: #### 1 9062011, 8244565, 52632471, 16385295, 0338768, 41005035, 4440713, 7885420, 5978295, 8193598 ####[address] [place] [address] Lymph Absolute 3.6 E9/L Normal 1.0-4.0 [facility] Comment on above: Performed By: #### 1 4021175, 3785090, 40024200, 04425872, 2072182, 61771489, 8505905, 4565275, 1139082, 2025846 ####[address] [address] Lymphocytes/100 WBC (Bld) 30.9 % Normal 14.0-50.0 [facility] Comment on above: Performed By: #### 1 5532161, 7144743, 33272486, 67946218, 1127970, 57361238, 4202200, 2652327, 3690720, 1585507 ####[address] [address] MCH (RBC) [Entitic mass] 27.6 pg Normal 27.0-34.0 [facility] Comment on above: Performed By: #### 1 4816079, 4559069, 23112902, 76661511, 1572799, 79734646, 5461929, 1564837, 0344535, 0772379 ####[address] [address] MCHC (RBC) [Mass/Vol] 32.8 g/dL Normal 31.4-36.0 [facility] Comment on above: Performed By: #### 1 5102884, 7185897, 39403743, 23319091, 4304902, 23033728, 2932797, 2579247, 5836477, 1350668 ####[address] [address] MCV (RBC) [Entitic vol] 84.3 fL Normal 80.0-100.0 [facility] Comment on above: Performed By: #### 1 9432513, 1848243, 38556877, 40758603, 8619580, 13599861, 7248775, 8408669, 2157578, 3562438 ####[facility] [address] [place] [address] [place] Absolute 0.9 E9/L Normal 0.2-1.0 [facility] Comment on above: Performed By: #### 1 7368598, 1144488, 41654315, 56458971, 4125177, 24864477, 9420493, 7115514, 0792842, 1194211 ####[address] [place] [address] Monocytes/100 WBC (Bld) 8.1 % Normal 4.0-14.0 [facility] Comment on above: Performed By: #### 1 6645951, 3824836, 13583494, 08453915, 7726784, 91934327, 5247811, 3379873, 8713019, 2315448 ####[address] [address] Neutro Absolute 6.6 E9/L Normal 2.0-7.5 [facility] Comment on above: Performed By: #### 1 7523677, 7219517, 49612307, 81329553, 1033710, 22209721, 5414553, 9395942, 6907396, 9250974 ####[address] [place] [address] Neutro Auto 56.6 % Normal 36.0-75.0 [facility] Comment on above: Performed By: #### 1 4999054, 2857947, 62990434, 58412686, 6314230, 19174348, 9170132, 0002539, 6226634, 2793063 ####[address] [place] [address] Platelet 431.0 E9/L Normal 150.0-500.0 [facility] Comment on above: Performed By: #### 1 5180706, 8875341, 70070709, 89207122, 8749550, 70146295, 8450127, 8009866, 7240440, 8498433 ####[facility] [address] [place] [address] Platelet mean volume (Bld) [Entitic vol] 8.5 fL Normal 6.4-10.8 [facility] Comment on above: Performed By: #### 1 0524164, 3957555, 11634819, 94586995, 6074247, 18720423, 9321288, 9900215, 3580558, 9535375 ####[facility] [address] [place] [address] RBC 5.5 E12/L Normal 4.3-5.9 [facility] Comment on above: Performed By: #### 1 4641089, 1592654, 80899386, 42209492, 4577656, 97461773, 5087119, 2611496, 9313437, 3360763 ####[facility] [address] [place] [address] WBC 11.6 E9/L High 4.0-11.0 [facility] Comment on above: Performed By: #### 1 3998098, 0113580, 39330955, 39601985, 7983593, 44029356, 2010703, 3883785, 1595727, 8298356 ####[facility] [address] [place] [address] CHEMISTRYOrdered By: SYSTEM SYSTEM on 07-05-2023 Troponin 51.10 pg/mL Invalid Interpretation Code 10.10 - 27.10 pg/mL [facility] Comment on above: Result Comment: Crit ical Result I_TnIHS:51.1 Called to and read back by: DR. JUAN MAS at: 07/05/2023 21:51:38 by:[email or web address] Critical Result Verified by Previous Result Interpretive Data: T he 95% CI (Confidence Interval) PPV (Positive Predictive Value) for myocardial infarction in females is 38 pg/mL, in males 51 pg/mL. The results should be used in conjunction with clinical conditions of myocardial infarction. (Access High Sensitivity Troponin I Instructions For Use, [employer], December 2017) Troponin 51.70 pg/mL Invalid Interpretation Code 10.10 - 27.10 pg/mL [facility] Chem S Comment on above: Interpretive Data: T he 95% CI (Confidence Interval) PPV (Positive Predictive Value) for myocardial infarction in females is 38 pg/mL, in males 51 pg/mL. The results should be used in conjunction with clinical conditions of myocardial infarction. (Access High Sensitivity Troponin I Instructions For Use, [employer], December 2017) Result Comment: Crit ical Result Verified by Previous Result Results Called To Jonhna Perkins (ER) By STANFORD And Read Back [...] back by: JOHNNA PERKINS at: 07/05/2023 16:37:35 by:[id number] Interpretive Data: T he 95% CI (Confidence [...] 508 pg/mL High 5 - 80 pg/mL [facility] COAGULATIONOrdered By: Richar Kumar on 07-05-2023 aPTT Coag (PPP) [Time] 27.2 s Normal 25.1 - 36.5 second(s) [facility] Auto Coag Comment on above: Interpretive Data: [...] the same coagulation reagent and instrumentation as [facility]. Currently there are no coagulation studies available worldwide for children to 14 days, and no normal ranges. Heparin therapeutic range (represented by Anti-Factor Xa activity of 0.2 - 0.4 U/mL) corresponds to PTT of 56.6 - 109.0 sec. INR Coag (PPP) [Relative time] 1.01 {INR} Invalid Interpretation Code [facility] Auto Coag Comment on above: Interpretive Data: I NR results are specifically intended to assess patients stabilized on long-term Anticoagulation therapy suggested INR s Less Intensive Anticoagulation 2.0 3.0 Conventional Range 3.0 4.5 PT Coag (PPP) [Time] 11.2 s Normal 9.4 - 1 2.5 second(s) [facility] Auto Coag Comment on above: Interpretive Data: [...] the same coagulation reagent and instrumentation as [facility]. Currently there are no coagulation studies available worldwide for children to 14 days, and no normal ranges. Consent for Treatment 06-15 Consent for Treatment [id number]#1 .00TIFF Normal [facility] Digoxinon 07-05-2023 Digoxin Lvl <0.2 Low 0.5-1.9 [facility] Comment on above: Performed By: #### 1 7777453, 7341719, 05641530, 32255135, 0512686, 10350597, 2154301, 2105720, 1429447, 7054222 ####[facility] [address] [place] [address] ED Note-Physicianon 07-05-19 24 ED Note-Physician Basic [...] int (more content not included)... Normal [facility] Comment on above: Result Comment: Elec [...] Normal 80.0 - 100.0 fL Remisol Heme [place] Absolute 0.9 E9/L Normal 0.2 - 1.0 [...] Albumin [Mass/Vol] 4.3 g/dL Normal 3.3-5.0 [facility] Comment on above: Performed By: #### 1 7265850, 5876922, 94689210, 58579066, 8223666, 75891030, 7739880, 7727020, 1987444, 6061397 ####[facility] [address] [place] [address] Albumin/Globulin [Mass ratio] 1.4 {ratio} Normal 1.1-2.2 [facility] Comment on above: Performed By: #### 1 0555000, 0843294, 13217288, 73263539, 4383660, 09407024, 0338039, 6525622, 2393892, 3732958 ####[facility] [address] [place] [address] Alk Phos 77 Int._Unit/L Normal 21-98 [facility] Comment on above: Performed By: #### 1 1718600, 6345237, 86898541, 23074742, 6798969, 71569230, 9213045, 9027391, 9759250, 6266850 ####[address] [place] [address] ALT 20 Int._Unit/L Normal 6-46 [facility] Comment on above: Performed By: #### 1 6179981, 0841589, 40609804, 70335837, 1715393, 90846435, 0442613, 3006600, 5982128, 1844186 ####[address] [place] [address] AST 23 Int._Unit/L Normal 5-43 [facility] Comment on above: Performed By: #### 1 3045918, 3286478, 36590507, 10035944, 9389132, 78266217, 8504515, 3726033, 0495718, 7688198 ####[facility] [address] [place] [address] Bili Direct 0.1 mg/dL Normal 0.0-0.4 [facility] Comment on above: Performed By: #### 1 2126658, 2737828, 17301299, 88850453, 4581047, 68083172, 9451570, 4156573, 0932010, 8147574 ####[facility] [address] [place] [address] Bili Indirect 0.5 mg/dL Normal 0.1-0.9 [facility] Comment on above: Performed By: #### 1 1760842, 5501915, 76830676, 59506609, 8164293, 91220518, 1788649, 0959290, 4450524, 6640464 ####[facility] [address] [place] [address] Bili Total 0.6 mg/dL Normal 0.0-1.1 [facility] Comment on above: Performed By: #### 1 5754207, 2525807, 71320538, 09191607, 2754643, 41120048, 0822391, 0682564, 1687677, 2802133 ####[facility] [address] [place] [address] Globulin (S) [Mass/Vol] 3.0 g/dL Normal 1.4-4.0 [facility] Comment on above: Performed By: #### 1 4759742, 4891299, 50695825, 35871042, 0992158, 65814596, 2339280, 5019415, 1802621, 5253362 ####[facility] [address] [place] [address] Protein [Mass/Vol] 7.3 g/dL Normal 6.0-7.8 [facility] Comment on above: Performed By: #### 1 7835355, 5686107, 01166549, 28991003, 8759895, 02558653, 5397594, 4381336, 7153112, 7771177 ####[facility] [address] [place] [address] Lipase Levelon 07-05-2023 Lipase Lvl 22 unit/L Normal 13-58 [facility] Comment on above: Performed By: #### 1 7867826, 2980049, 41558785, 95226409, 5888081, 49782952, 4865183, 6469928, 5633818, 4394812 ####[facility] [address] [place] [address] Magnesiumon 07-05-2023 Magnesium [Mass/Vol] 2.3 mg/dL Normal 1.3-2.4 [facility] Comment on above: Performed By: #### 1 8366546, 7064616, 30702049, 91312509, 8252927, 20204130, 7994778, 0443537, 9406506, 7413534 ####[facility] [address] [place] [address] Monitor Recordon 07-05-2023 Monitor Record [id number]# 1.00TIFF Normal [facility] Monitor Record [id number]# 1.00TIFF Normal [facility] Monitor Record [id number]# 1.00TIFF Normal [facility] PT & PTTon 07-05-2023 aPTT Coag (PPP) [Time] 27.2 second(s) Normal 25.1-36.5 [facility] Comment on above: Result Comment: Para [...] the same coagulation reagent and instrumentation as [facility]. Currently there are no coagulation studies available worldwide for children to 14 days, and no normal ranges. Heparin therapeutic range (represented by Anti-Factor Xa activity of 0.2 - 0.4 U/mL) corresponds to PTT of 56.6 - 109.0 sec. Performed By: #### 1 6887536, 5787386, 92192312, 28390414, 2087265, 57391159, 7477938, 0896855, 3731459, 6489474 ####[facility] [address] [place] [address] INR Coag (PPP) [Relative time] 1.01 {INR} Invalid Interpretation Code [facility] Comment on above: Result Comment: INR results are specifically intended to assess patients stabilized on long-term Anticoagulation therapy suggested INR?s ?Less Intensive Anticoagulation? 2.0 ? 3.0 Conventional Range 3.0 ? 4.5 Performed By: #### 1 9519194, 9254792, 03230698, 57398434, 6020739, 82334065, 9146350, 5686359, 5027785, 4420364 ####[facility] [address] [place] [address] PT Coag (PPP) [Time] 11.2 second(s) Normal 9.4-12.5 [facility] Comment on above: Result Comment: 15 [...] the same coagulation reagent and instrumentation as [facility]. Currently there are no coagulation studies available worldwide for children to 14 days, and no normal ranges. Performed By: #### 1 9558675, 3255272, 64564808, 70403516, 5036054, 12898010, 6553951, 3075316, 7342492, 7941570 ####[facility] [address] [place] [address] Pre-Arrival Noteon Pre-Arrival Note Pre-Arrival Summary Name: , [facility] Current Date: 07/05/2023 15:02:00 EST Gender: Female Date of : Age: 63 Pre-Arrival Type: EMS ETA: 07/05/2023 15:21:00 EST Primary Care Physician: Presenting Problem: HR 40s, CP, SOB, dizziness, abd. pain, nausea Pre-Arrival User: Oxana Pace RN Referring Source: Location: DC Completion Date/Time: 07/05/2023 14:51:00 [facility] Emergency Department Pre-Hospital Report Form Vital Signs: Pre-Hospital Report: Treatment in Route: Response to Treatment: Misc. Issues: Normal [facility] Troponin 0 Hr.on 07-05-2023 Troponin 49.20 pg/mL Abnormal 10.10-27.10 [facility] Comment on above: Result Comment: Steven gonzalez Result Verified by Repeat Analysis Critical Result I_TnIHS:49.2 Called to and read back by: JOHNNA PERKINS at: 07/05/2023 16:37:35 by:[id number] The 95% CI (Confidence Interval) PPV (Positive Predictive Value) for myocardial infarction in females is 38 pg/mL, in males 51 pg/mL. The results should be used in conjunction with clinical conditions of myocardial infarction. (Access High Sensitivity Troponin I Instructions For Use, [employer], December 2017) Performed By: #### 1 8280545, 2356873, 77419600, 65400917, 5854846, 33088603, 4627390, 7908617, 9522059, 9085486 ####[facility] [place] [address] Troponin 3 Hr.on 07-05-2023 Troponin 51.70 pg/mL Abnormal 10.10-27.10 [facility] Comment on above: Result Comment: The 95% CI (Confidence Interval) PPV (Positive Predictive Value) for myocardial infarction in females is 38 pg/mL, in males 51 pg/mL. The results should be used in conjunction with clinical conditions of myocardial infarction. (Access High Sensitivity Troponin I Instructions For Use, [employer], December 2017) Critical Result Verified by Previous Result Results Called To Johnna Prekins (ER) By STANFORD And Read Back For Confirmation On 07/05/2023 19:18:03 EST. Performed By: #### 1 [id number] ####[facility] [address] [place] [address] Troponin 6 Hr.on 07-05-2023 Troponin 51.10 pg/mL Abnormal 10.10-27.10 [facility] Comment on above: Result Comment: Crit ica Result I_TnIHS:51.1 Called to and read back by: DR. JUAN MAS at: 07/05/2023 21:51:38 by:[email or web address] Critical Result Verified by Previous Result The 95% CI (Confidence Interval) PPV (Positive Predictive Value) for myocardial infarction in females is 38 pg/mL, in males 51 pg/mL. The results should be used in conjunction with clinical conditions of myocardial infarction. (wiseri High Sensitivity Troponin I Instructions For Use, invino, December 2017) Performed By: #### 1 [id number] ####[facility] [address] [place] [address] XR Chest Single Viewon 07-05 XR Chest [...] = na DAP = na Normal [facility] eGFRon 07-05-2023 eGFR 39 mL/min/1.73 m2 Low >=59 [facility] Comment on above: Order Comment: Order added by Discern Expert. Performed By: #### 1 [id number], [id number], [id number], [id number], [id number], [id number], [id number], [id number] ####[facility] [address] [place] [address] 36on 07-03-2023 36 Unable to reach pt . Phone not in service [facility] 36 Pts phone number not in service. Spoke to pts friend Arvind and requested he have pt call us, he agrees. [facility] Documentationon 07-03-2023 Documentation [id number] Vivian Vann 1960 F Date Provider Department Center 07/03/2023 [id number] COOK [facility] Heart[facility]AS No family history on file Reason for Visit and Comments: HF inpatient satisfaction robyn sent. [Other] [facility] 30on 07-02-2023 30 The patient is Moderately [...] and behaviors that affect risk of falls [place] fall precautions as indicated by assessment Educate [...] and prevent overall improvement and discharge Normal [facility] 30 The patient is Moderately [...] and behaviors that affect risk of falls [place] fall precautions as indicated by assessment Educate [...] and prevent overall improvement and discharge Normal [facility] BASIC METABOLIC PANELon 06-14 Anion gap [Moles/Vol] 11 mmol/L Normal 7-20 [facility] Comment on above: Performed By: #### L [id number] #### [facility] ([facility]) [address] [place] [address] Calcium [Mass/Vol] 9.0 mg/dL Normal 8.6-10.3 [facility] Comment on above: Performed By: #### L [id number] #### [facility] ([facility]) [address] [place] [address] Chloride [Moles/Vol] 91 mmol/L Low 98-107 [facility] Comment on above: Performed By: #### L [id number] #### [facility] ([facility]) [address] [place] [address] CO2 [Moles/Vol] 37 mmol/L High 21-31 [facility] Comment on above: Performed By: #### L [id number] #### [facility] ([facility]) [address] [place] [address] Creatinine [Mass/Vol] 0.89 mg/dL Normal 0.60-1.20 [facility] Comment on above: Performed By: #### L [id number] #### [facility] ([facility]) [address] [place] [address] GLOMERULAR FILTRATION RATE ML/MIN/1.73 SQ M.PREDICTED 73.3 mL/min/1.73m*2 Normal >60.0 [facility] Comment on above: Result Comment: [facility]???s estimated glomerular filtration rate (eGFR) [...] individuals. Performed By: #### L [id number] #### [facility] ([facility]) [address] [place] [address] Glucose [Mass/Vol] 123 mg/dL High 70-100 [facility] Comment on above: Performed By: #### L [id number] #### [facility] ([facility]) [address] [place] [address] Potassium [Moles/Vol] 3.7 mmol/L Normal 3.5-5.1 [facility] Comment on above: Performed By: #### L [id number] #### [facility] ([facility]) [address] [place] [address] Sodium [Moles/Vol] 135 mmol/L Low 136-145 [facility] Comment on above: Performed By: #### L [id number] #### [facility] ([facility]) [address] [place] [address] Urea nitrogen [Mass/Vol] 29 mg/dL High 7-[address] [facility] Comment on above: Performed By: #### L [id number] #### [facility] ([facility]) [address] [place] [address] UREA NITROGEN/CREATININE (MASS RATIO) IN SER/PLAS 32.[address] [facility] Comment on above: Performed By: #### L [id number] #### [facility] ([facility]) [address] [place] [address] CBCon 07-02-2023 Erythrocyte distribution width (RBC) [Ratio] 15.8 % High 11.5-15.[address] [facility] Comment on above: Performed By: #### L [id number] ####[facility] ([facility]ER)[address] [place] [address] ERYTHROCYTE MEAN CORPUSCULAR HEMOGLOBIN CONCENTRATION (G/DL) BY AUTOMATED 31.8 g/dL Low 32.0-35.[address] [facility] Comment on above: Performed By: #### L [id number] ####[facility] ([facility])[address] [place] [address] Hematocrit (Bld) [Volume fraction] 44.0 % Normal 36.0-48.[address] [facility] Comment on above: Performed By: #### L [id number] ####[facility] ([facility])[address] [place] [address] Hemoglobin (Bld) [Mass/Vol] 14.0 g/dL Normal 12.0-15.[address] [facility] Comment on above: Performed By: #### L [id number] ####[facility] ([facility])[address] [place] [address] MCH (RBC) [Entitic mass] 27.9 pg Normal 27.0-33.[address] [facility] Comment on above: Performed By: #### L [id number] ####[facility] (BEAKER)[address] [place] [address] MCV (RBC) [Entitic vol] 87.8 fL Normal 82.0-98.[address] [facility] Comment on above: Performed By: #### L [id number] ####[facility] ([facility]AKER)[address] [place] [address] PLATELETS (10*3/UL) IN BLOOD AUTOMATED COUNT 285 10*3/uL Normal 150-[address] [facility] Comment on above: Performed By: #### L [id number] ####[facility] (BEAKER)[address] [place] [address] RBC (Bld) [#/Vol] 5.01 10*6/uL High 3.80-5.00 [facility] Comment on above: Performed By: #### L [id number] ####[facility] ([facility])[address] [place] [address] WBC (Bld) [#/Vol] 8.89 10*3/uL Normal 4.00-10.60 [facility] Comment on above: Performed By: #### L [id number] ####[facility] ([facility])[address] [place] [address] DSon 07-02-2023 DS Admit Date 06/29/2023 Discharge Date 07/02/2023 Discharge Diagnosis NSTEMI Acute on chronic HFpEF NYHA class 2 CAD DMII noninsulin dependent Chronic pain Anxiety GERD Tobacco abuse Discharge Disposition Home-Health Care [facility] () Discharge Medications Your [...] Medications These medications were sent to [facility] - [place], [place] - [address] [place] [address] [place] [address], [facility] [address] furosemide 40 mg tablet spironolactone 25 mg tablet Activity Normal activity as tolerated Diet Continue on the same type of diet and foods as you were eating before your admission. Drink plenty of water. Allergies Hay fever and allergy relief and House dust Hospital Course History of Present Illness Vivian Vann is an 63 y.o. female who came from [facility] as direct asmission for NSTEMI. Patient presented 06/28/23 to [facility] for c/o chest pain and lower back pain. Patient troponin level found to be 557 and EKG showed new ischemia and inverted T-waves, NSTEMI. She was given nitroglycerin and started on heparin drip. Patient is 1 year s/p stent placement at [facility] on plavix and aspirin. Dr. Chapa with cardiology agreed to patient transfer here to [facility] with hospital medicine admitting [...] Low back pending. Laboratory workup here at [facility] shows CBC unremarkable w/ [...] General: Abdo (more content not included)... Normal [facility] POCT GLUCOSE METER UNSOLICIT ED RESULTSon 07-02-2023 Glucose [Mass/Vol] 117 mg/dL High 70-105 [facility] Comment on above: Order Comment: Waive d Testing in the ED is performed under the ED CLIA certificate #[id number]. Result Comment: [email or web address] Performed By: #### L [id number] #### [facility] ([facility]) [address] [place] [address] Glucose [Mass/Vol] 110 mg/dL High 70-105 [facility] Comment on above: Order Comment: Waive d Testing in the ED is performed under the ED CLIA certificate #[id number]. Result Comment: [email or web address] Performed By: #### L [id number] ####[facility] ([facility]ER)[address] [place] [address] 30on 07-01-2023 30 The patient is Moderately [...] and behaviors that affect risk of falls [place] fall precautions as indicated by assessment Educate [...] and prevent overall improvement and discharge Normal [facility] BASIC METABOLIC PANELon 06-14 Anion gap [Moles/Vol] 10 mmol/L Normal 7-20 [facility] Comment on above: Performed By: #### L [id number] ####[facility] ([facility]ER)[address] [place] [address] Calcium [Mass/Vol] 8.3 mg/dL Low 8.6-10.3 [facility] Comment on above: Performed By: #### L [id number] ####[facility] ([facility])[address] [place] [address] Chloride [Moles/Vol] 98 mmol/L Normal 98-107 [facility] Comment on above: Performed By: #### L [id number] ####[facility] ([facility])[address] [place] [address] CO2 [Moles/Vol] 35 mmol/L High 21-31 [facility] Comment on above: Performed By: #### L [id number] ####[facility] ([facility])[address] [place] [address] Creatinine [Mass/Vol] 1.08 mg/dL Normal 0.60-1.20 [facility] Comment on above: Performed By: #### L [id number] ####[facility] ([facility])[address] [place] [address] GLOMERULAR FILTRATION RATE ML/MIN/1.73 SQ M.PREDICTED 58.1 mL/min/1.73m*2 Low >60.0 [facility] Comment on above: Result Comment: The [facility]???s estimated glomerular filtration rate (eGFR) [...] of individuals. Performed By: #### L [id number] ####[facility] ([facility])[address] [place] [address] Glucose [Mass/Vol] 116 mg/dL High 70-100 [facility] Comment on above: Performed By: #### L [id number] ####[facility] ([facility])[address] [place] [address] Potassium [Moles/Vol] 3.7 mmol/L Normal 3.5-5.1 [facility] Comment on above: Performed By: #### L [id number] ####[facility] ([facility])[address] [place] [address] Sodium [Moles/Vol] 139 mmol/L Normal 136-145 [facility] Comment on above: Performed By: #### L [id number] ####[facility] ([facility])[address] [place] [address] Urea nitrogen [Mass/Vol] 27 mg/dL High 7-[address] [facility] Comment on above: Performed By: #### L [id number] ####[facility] ([facility])[address] [place] [address] UREA NITROGEN/CREATININE (MASS RATIO) IN SER/PLAS 25.[address] [facility] Comment on above: Performed By: #### L [id number] ####[facility] ([facility])[address] [place] [address] POCT GLUCOSE METER UNSOLICIT ED RESULTSon 07-01-2023 Glucose [Mass/Vol] 132 mg/dL High 70-105 [facility] Comment on above: Order Comment: Waive d Testing in the ED is performed under the ED CLIA certificate #[id number]. Result Comment: [email or web address] Performed By: #### L [id number] ####[facility] ([facility])[address] [place] [address] Glucose [Mass/Vol] 106 mg/dL High 70-105 [facility] Comment on above: Order Comment: Waive d Testing in the ED is performed under the ED CLIA certificate #[id number]. Result Comment: [email or web address] rad Performed By: #### L [id number] #### [facility] ([facility]) [address] [place] [address] Glucose [Mass/Vol] 121 mg/dL High 70-105 [facility] Comment on above: Order Comment: Waive d Testing in the ED is performed under the ED CLIA certificate #[id number]. Result Comment: [email or web address] [email or web address] Performed By: #### L [id number] ####[facility] ([facility])[address] [place] [address] Glucose [Mass/Vol] 105 mg/dL Normal 70-105 [facility] Comment on above: Order Comment: Waive d Testing in the ED is performed under the ED CLIA certificate #[id number]. Result Comment: [email or web address] rad Performed By: #### L [id number] ####[facility] ([facility])[address] [place] [address] 30on 06-30-2023 30 The patient is Moderately [...] and maintained or improved Outcome: Progressing Normal [facility] ANTI-XA (HEPARIN LEVEL)on HEPARIN UNFRACTIONATED (U/ML) IN PPP BY CHROMOGENIC METHOD <0.10 Invalid Interpretation Code 0.3-0.[address] [facility] Comment on above: Order Comment: Check anti-Xa level every 6 hours while on heparin infusion, or per protocol. Result Comment: Elberon roxaban and Apixaban will interfere with the anti Xa assay used to monitor UFH and LMWH. Performed By: #### L [id number] #### [facility] ([facility]) [address] [place] [address] CBCon 06-30-2023 Erythrocyte distribution width (RBC) [Ratio] 15.3 % High 11.5-15.[address] [facility] Comment on above: Performed By: #### L [id number] ####[facility] ([facility]AKER)[address] [place] [address] ERYTHROCYTE MEAN CORPUSCULAR HEMOGLOBIN CONCENTRATION (G/DL) BY AUTOMATED 32.2 g/dL Normal 32.0-35.[address] [facility] Comment on above: Performed By: #### L [id number] ####[facility] ([facility]AKER)[address] [place] [address] Hematocrit (Bld) [Volume fraction] 35.7 % Low 36.0-48.[address] [facility] Comment on above: Performed By: #### L [id number] ####[facility] (BEAKER)[address] [place] [address] Hemoglobin (Bld) [Mass/Vol] 11.5 g/dL Low 12.0-15.[address] [facility] Comment on above: Performed By: #### L [id number] ####[facility] (BEAKER)[address] [place] [address] MCH (RBC) [Entitic mass] 28.1 pg Normal 27.0-33.[address] [facility] Comment on above: Performed By: #### L [id number] ####[facility] (BEAKER)[address] [place] [address] MCV (RBC) [Entitic vol] 87.3 fL Normal 82.0-98.[address] [facility] Comment on above: Performed By: #### L [id number] ####[facility] ([facility]ER)[address] [place] [address] PLATELETS (10*3/UL) IN BLOOD AUTOMATED COUNT 219 10*3/uL Normal 150-[address] [facility] Comment on above: Performed By: #### L [id number] ####[facility] (BEAKER)[address] [place] [address] RBC (Bld) [#/Vol] 4.09 10*6/uL Normal 3.80-5.00 [facility] Comment on above: Performed By: #### L [id number] ####[facility] (BEAKER)[address] [place] [address] WBC (Bld) [#/Vol] 10.22 10*3/uL Normal 4.00-10.60 [facility] Comment on above: Performed By: #### L [id number] ####[facility] (ANDRIY)[address] [place] [address] CONSULTon 06-30-2023 CONSULT Clinical Nutrition Assessment Name: [...] with questions and contact the dietitian via [employer] chat 8A-4P Sunday-Sunday. Or call the dietitian's office at extension [phone]. For weekends/holidays, the dietitian's can be reached by paging [phone] from 9A-3P. Unable to be reached via [employer] chat on Sunday & .) Normal [facility] HEMOGLOBIN A1Con 06-30-2023 Glucose [Mass/Vol] 143 mg/dL Normal [facility] Comment on above: Performed By: #### L [id number] #### [facility] ([facility]) [address] [place] [address] HbA1c (Bld) [Mass fraction] 6.6 % High 4.0-6.[address] [facility] Comment on above: Performed By: #### L [id number] #### [facility] ([facility]) [address] [place] [address] LACTIC ACID WITH 4 HOUR REFL EXon 06-30-2023 LACTATE (MMOL/L) IN SER/PLAS 1.9 mmol/L Normal 0.5-2.[address] [facility] Comment on above: Performed By: #### L [id number] #### [facility] ([facility]) [address] [place] [address] POCT GLUCOSE METER UNSOLICIT ED RESULTSon 06-30-2023 Glucose [Mass/Vol] 156 mg/dL High 70-105 [facility] Comment on above: Order Comment: Waive d Testing in the ED is performed under the ED CLIA certificate #[id number]. Result Comment: [email or web address] Performed By: #### L [id number] #### [facility] ([employer]) [address] [place] [address] Glucose [Mass/Vol] 149 mg/dL High 70-105 [facility] Comment on above: Order Comment: Waive d Testing in the ED is performed under the ED CLIA certificate #[id number]. Result Comment: [email or web address] Performed By: #### L [id number] #### [facility] ([employer]) [address] [place] [address] Glucose [Mass/Vol] 181 mg/dL High 70-105 [facility] Comment on above: Order Comment: Waive d Testing in the ED is performed under the ED CLIA certificate #[id number]. Result Comment: [email or web address] Performed By: #### L [id number] #### [facility] ([facility]) [address] [place] [address] 30on 06-29-2023 30 The patient is Moderately [...] and maintained or improved Outcome: Progressing Normal [facility] 30 The patient is Moderately Stable - Low risk of patient condition declining or worsening The patient's goals for the shift include no chest pain The clinical goals for the shift include vss Over the shift, the patient did not make progress toward the following goals. Barriers to progression include . Recommendations to address these barriers include . Normal [facility] APTTon 06-29-2023 ACTIVATED PARTIAL THROMBOPLASTIN TIME IN PPP BY COAGULATION ASSAY 67.3 Seconds High 25.0-35.[address] [facility] Comment on above: Result Comment: Clin ical significance of the APTT is questionable in the presence of heparin. Performed By: #### L [id number] #### [facility] ([facility]) [address] [place] [address] B-TYPE NATRIURETIC PEPTIDEon 06-29-2023 Natriuretic peptide B (Bld) [Mass/Vol] 1683 pg/mL High 0-[address] [facility] Comment on above: Performed By: #### L [id number] #### [facility] ([facility]) [address] [place] [address] BASIC METABOLIC PANELon 06-14 Anion gap [Moles/Vol] 14 mmol/L Normal 7-20 [facility] Comment on above: Performed By: #### L [id number] #### [facility] (BEAKER) [address] [place] [address] Calcium [Mass/Vol] 8.2 mg/dL Low 8.6-10.3 [facility] Comment on above: Performed By: #### L [id number] #### [facility] ([facility]) [address] [place] [address] Chloride [Moles/Vol] 102 mmol/L Normal 98-107 [facility] Comment on above: Performed By: #### L [id number] #### [facility] (BEAKER) [address] [place] [address] CO2 [Moles/Vol] 25 mmol/L Normal 21-31 [facility] Comment on above: Performed By: #### L [id number] #### [facility] ([facility]) [address] [place] [address] Creatinine [Mass/Vol] 1.04 mg/dL Normal 0.60-1.20 [facility] Comment on above: Performed By: #### L [id number] #### [facility] ([facility]) [address] [place] [address] GLOMERULAR FILTRATION RATE ML/MIN/1.73 SQ M.PREDICTED 60.8 mL/min/1.73m*2 Normal >60.0 [facility] Comment on above: Result Comment: [facility]???s estimated glomerular filtration rate (eGFR) [...] individuals. Performed By: #### L [id number] #### [facility] ([facility]) [address] [place] [address] Glucose [Mass/Vol] 268 mg/dL High 70-100 [facility] Comment on above: Performed By: #### L [id number] #### [facility] ([facility]) [address] [place] [address] Potassium [Moles/Vol] 4.1 mmol/L Normal 3.5-5.1 [facility] Comment on above: Performed By: #### L [id number] #### [facility] ([facility]) [address] [place] [address] Sodium [Moles/Vol] 137 mmol/L Normal 136-145 [facility] Comment on above: Performed By: #### L [id number] #### [facility] ([facility]) [address] [place] [address] Urea nitrogen [Mass/Vol] 14 mg/dL Normal 7-[address] [facility] Comment on above: Performed By: #### L [id number] #### [facility] ([facility]) [address] [place] [address] UREA NITROGEN/CREATININE (MASS RATIO) IN SER/PLAS 13.[address] [facility] Comment on above: Performed By: #### L [id number] #### [facility] ([facility]) [address] [place] [address] CBCon 06-29-2023 Erythrocyte distribution width (RBC) [Ratio] 15.3 % High 11.5-15.[address] [facility] Comment on above: Performed By: #### L [id number] #### [facility] ([facility]) [address] [place] [address] ERYTHROCYTE MEAN CORPUSCULAR HEMOGLOBIN CONCENTRATION (G/DL) BY AUTOMATED 31.8 g/dL Low 32.0-35.[address] [facility] Comment on above: Performed By: #### L [id number] #### [facility] ([facility]) [address] [place] [address] Hematocrit (Bld) [Volume fraction] 39.3 % Normal 36.0-48.[address] [facility] Comment on above: Performed By: #### L [id number] #### [facility] ([facility]) [address] [place] [address] Hemoglobin (Bld) [Mass/Vol] 12.5 g/dL Normal 12.0-15.[address] [facility] Comment on above: Performed By: #### L [id number] #### [facility] ([facility]) [address] [place] [address] MCH (RBC) [Entitic mass] 28.4 pg Normal 27.0-33.[address] [facility] Comment on above: Performed By: #### L [id number] #### [facility] ([facility]) [address] [place] [address] MCV (RBC) [Entitic vol] 89.3 fL Normal 82.0-98.[address] [facility] Comment on above: Performed By: #### L [id number] #### [facility] ([facility]) [address] [place] [address] PLATELETS (10*3/UL) IN BLOOD AUTOMATED COUNT 218 10*3/uL Normal 150-[address] [facility] Comment on above: Performed By: #### L [id number] #### [facility] ([facility]) [address] [place] [address] RBC (Bld) [#/Vol] 4.40 10*6/uL Normal 3.80-5.00 [facility] Comment on above: Performed By: #### L [id number] #### [facility] ([facility]) [address] [place] [address] WBC (Bld) [#/Vol] 9.91 10*3/uL Normal 4.00-10.60 [facility] Comment on above: Performed By: #### L [id number] #### [facility] ([facility]) [address] [place] [address] COMPREHENSIVE METABOLIC PANE Pollo 06-29-2023 Albumin [Mass/Vol] 3.8 g/dL Normal 3.5-5.7 [facility] Comment on above: Performed By: #### L [id number] #### [facility] ([facility]) [address] [place] [address] ALP [Catalytic activity/Vol] 77 U/L Normal 34-[address] [facility] Comment on above: Performed By: #### L [id number] #### [facility] ([facility]) [address] [place] [address] ALT [Catalytic activity/Vol] 23 U/L Normal 7-[address] [facility] Comment on above: Performed By: #### L [id number] #### [facility] ([facility]) [address] [place] [address] Anion gap [Moles/Vol] 10 mmol/L Normal 7-20 [facility] Comment on above: Performed By: #### L [id number] #### [facility] ([facility]) [address] [place] [address] AST [Catalytic activity/Vol] 23 U/L Normal 13-[address] [facility] Comment on above: Performed By: #### L [id number] #### [facility] ([facility]) [address] [place] [address] Bilirubin [Mass/Vol] 0.4 mg/dL Normal 0.3-1.0 [facility] Comment on above: Performed By: #### L [id number] #### [facility] ([facility]) [address] [place] [address] Calcium [Mass/Vol] 8.6 mg/dL Normal 8.6-10.3 [facility] Comment on above: Performed By: #### L [id number] #### [facility] ([facility]) [address] [place] [address] Chloride [Moles/Vol] 107 mmol/L Normal 98-107 [facility] Comment on above: Performed By: #### L [id number] #### [facility] ([facility]) [address] [place] [address] CO2 [Moles/Vol] 27 mmol/L Normal 21-31 [facility] Comment on above: Performed By: #### L [id number] #### [facility] ([facility]) [address] [place] [address] Creatinine [Mass/Vol] 1.01 mg/dL Normal 0.60-1.20 [facility] Comment on above: Performed By: #### L [id number] #### [facility] ([facility]) [address] [place] [address] GLOMERULAR FILTRATION RATE ML/MIN/1.73 SQ M.PREDICTED 62.9 mL/min/1.73m*2 Normal >60.0 [facility] Comment on above: Result Comment: The [facility]???s estimated glomerular filtration rate (eGFR) [...] individuals. Performed By: #### L [id number] #### [facility] ([facility]) [address] [place] [address] Glucose [Mass/Vol] 148 mg/dL High 70-100 [facility] Comment on above: Performed By: #### L [id number] #### [facility] ([facility]) [address] [place] [address] Potassium [Moles/Vol] 4.2 mmol/L Normal 3.5-5.1 [facility] Comment on above: Performed By: #### L [id number] #### [facility] ([facility]) [address] [place] [address] Protein [Mass/Vol] 6.3 g/dL Normal 6.0-8.3 [facility] Comment on above: Performed By: #### L [id number] #### [facility] ([facility]) [address] [place] [address] Sodium [Moles/Vol] 140 mmol/L Normal 136-145 [facility] Comment on above: Performed By: #### L [id number] #### [facility] ([facility]) [address] [place] [address] Urea nitrogen [Mass/Vol] 10 mg/dL Normal 7-[address] [facility] Comment on above: Performed By: #### L [id number] #### [facility] ([facility]) [address] [place] [address] UREA NITROGEN/CREATININE (MASS RATIO) IN SER/PLAS 9.[address] [facility] Comment on above: Performed By: #### L [id number] #### [facility] ([facility]) [address] [place] [address] CONSULTon 06-29-2023 CONSULT - Attestation signed by [...] tobacco use comes as a transfer from [facility] due to suspected NSTEMI. Patient was complaining [...] Her troponins were elevated at 557 at [facility] and recheck here shows 0.07. Patient continues [...] Value Ventricular Rate 61 Atrial Rate 61 [place] Interval 150 (more content not included)... Normal [facility] HPon 06-29-2023 HP Interval Pre-Procedural H&P Reason for Consult: NSTEMI HPI: Vivian Vann is a 63 y.o. female with PMH of CAD s/p PCI to LAD (October 2021), HTN, HLD, COPD, tobacco use comes as a transfer from [facility] due to suspected NSTEMI. Patient was complaining [...] Her troponins were elevated at 557 at [facility] and recheck here shows 0.07. Patient continues [...] Value Ventricular Rate 61 Atrial Rate 61 [place] Interval 150 QRS DURATION 88 QT Interval 476 QTC CALCULATION(BAZETT) 479 P Gregory 68 R-Gregory 25 T Wave Gregory 128 Impression Normal sinus rhythm Right atrial [...] deformity. End (more content not included)... Normal [facility] LACTIC ACID WITH 4 HOUR REFL EXon 06-29-2023 LACTATE (MMOL/L) IN SER/PLAS 3.6 mmol/L Critically high 0.5-2.[address] [facility] Comment on above: Result Comment: M-[place] EVIOUS CRITICAL RESULT Previous result verified on 06/29/2023 1809 on specimen/case [id number] called with component Lactate blood venous for procedure Lactic acid with 4 hour reflex with value 2.7 mmol/L. Performed By: #### L [id number] #### [facility] ([facility]) [address] [place] [address] LACTATE (MMOL/L) IN SER/PLAS 2.7 mmol/L Critically high 0.5-2.[address] [facility] Comment on above: Performed By: #### L [id number] #### [facility] ([facility]) [address] [place] [address] LACTATE (MMOL/L) IN SER/PLAS 2.5 mmol/L High 0.5-2.[address] [facility] Comment on above: Performed By: #### L [id number] ####[facility] ([facility])[address] [place] [address] MAGNESIUMon 02-16-2024 Magnesium [Mass/Vol] 2.1 mg/dL Normal 1.9-2.7 [facility] Comment on above: Performed By: #### L [id number] ####[facility] ([facility])[address] [place] [address] Magnesium [Mass/Vol] 2.2 mg/dL Normal 1.9-2.7 [facility] Comment on above: Performed By: #### L [id number] #### [facility] ([facility]) [address] [place] [address] Magnesium [Mass/Vol] 1.7 mg/dL Low 1.9-2.7 [facility] Comment on above: Performed By: #### L [id number] #### [facility] ([facility]) [address] [place] [address] NURSNOTEon 06-29-2023 NURSNOTE Notified [place] [facility] Hospitalist critical lactate 2.7 no orders received said she would recheck lactate in 4 hrs [address] [facility] PHOSPHORUSon 06-29-2023 Magnesium [Mass/Vol] 3.5 mg/dL Normal 2.5-5.0 [facility] Comment on above: Performed By: #### L [id number] #### [facility] ([facility]) [address] [place] [address] PROTIME-INRon 06-29-2023 INR IN PPP BY COAGULATION ASSAY 0.98 Normal 0.90-1.[address] [facility] Comment [...] CHEST 1995;[id number]. Performed By: #### L [id number] ####[facility] ([facility])[address] [place] [address] PROTHROMBIN TIME (PT) IN PPP BY COAGULATION ASSAY 13.0 Seconds Normal 12.3-14.[address] [facility] Comment on above: Performed By: #### L [id number] ####[facility] ([facility])[address] [place] [address] TROPONIN Ion 06-29-2023 Troponin I.cardiac [Mass/Vol] 0.06 ng/mL High 0.00-0.[address] [facility] Comment on above: Performed By: #### L [id number] #### [facility] ([facility]) [address] [place] [address] Troponin I.cardiac [Mass/Vol] 0.07 ng/mL High 0.00-0.[address] [facility] Comment on above: Performed By: #### L [id number] ####[facility] ([facility])[address] [place] [address] Troponin I.cardiac [Mass/Vol] 0.07 ng/mL High 0.00-0.[address] [facility] Comment on above: Performed By: #### L [id number] #### [facility] ([facility]) [address] [place] [address] CBC W MANUAL DIFFon 08-25-19 23 ANISOCYTOSIS 1+ Normal [facility] Comment on above: Performed By: ###Daniela PONCE ####[facility] [address] [place], [place] [address]Fs. Nahed Yañez ATYPICAL LYMPH # Normal [facility] Comment on above: Performed By: ###Daniela PONCE ####[facility] [address] [place] [id number]. Nahed Yañez ATYPICAL LYMPH % Normal [facility] Comment on above: Performed By: #### C BCMAN ####[facility] [address] [place] [address]Dr. Yilan Yañez BAND # 0.2 103/ul Normal 0.0-0.3 [facility] Comment on above: Performed By: #### C BCMAN ####[facility] [address] [place] [address]Dr. Yilan Yañez BAND % 1 % Normal 0-5 [facility] Comment on above: Performed By: #### C BCISAIAH ####[facility] [address] [place], [place] [address]Dr. Nahed Yañez BASOM # 0.00 103/ul Normal 0.00-0.10 [facility] Comment on above: Performed By: #### C ROSARIO ####[facility] [address] [place], [place] [address]Dr. Nahed Yañez BASOM % 0.0 % Critically low 0.2-2.0 [facility] Comment on above: Performed By: #### C ROSARIO ####[facility] [address] [place], [place] [address]Dr. Nahed Yañez BLAST # Normal [facility] Comment on above: Performed By: #### C ROSARIO ####[facility] Bjpdyn[address] [place], [place] [address]Dr. Nahed Yañez BLAST % Normal [facility] Comment on above: Performed By: #### C BCISAIAH ####[facility] [address] [place] [address]Dr. Nahed Yañez CORRECTED WBC Normal 4.0-11.0 [facility] Comment on above: Performed By: #### C ROSARIO ####[facility] [address] [place], [place] [address]Dr. Nahed Yañez EOS # 0.00 103/ul Normal 0.00-0.70 [facility] Comment on above: Performed By: #### C BCISAIAH ####[facility] [address] [place], [place] [address]Sq. Nahed Yañez EOS% 0.0 % Critically low 0.9-7.0 [facility] Comment on above: Performed By: #### C ROSARIO ####[facility] [address]kw[address] [place] [id number]. Nahed Yañez HCT 33.9 % Critically low 36.0-48.0 [facility] Comment on above: Performed By: #### C ROSARIO ####[facility] [address] [place], [place] [address]In. Nahed Yañez HGB 10.8 g/dl Critically low 12.0-16.0 [facility] Comment on above: Performed By: #### C ROSARIO ####[facility] Begujf[address]olv[address] [place] [id number]. Nahed Yañez HYPOCHROMASIA SLIGHT Normal [facility] Comment on above: Performed By: #### C ROSARIO ####[facility] Wdomqhukci38[address] [place] [phone]. Nahed Yañez LYMPHM # 2.59 103/ul Normal 1.20-3.80 [facility] Comment on above: Performed By: #### Isabell PONCE ####[facility] Ugxbjospum[address] [place] [id number]. Nahed Yañez LYMPHM% 16.0 % Critically low 20.5-60.0 [facility] Comment on above: Performed By: #### Isabell POCNE ####[facility] Aj[address]uywsxf[address] [place] [phone]. Nahed Yañez MCH 28.5 pg Normal 26.7-34.0 [facility] Comment on above: Performed By: #### C ROSARIO ####[facility] Nfpxigkqhf35[address] [place] [phone]. Nahed Yañez MCHC 31.9 g/dl Normal 29.9-35.2 [facility] Comment on above: Performed By: #### C ROSARIO ####[facility] Z[address]ad[address]rwql[address] [place] [id number]. Nahed Yañez MCV 89.4 fL Normal 81.0-99.0 [facility] Comment on above: Performed By: #### C ROSARIO ####[facility] Wwzzdsqdkg[address]34 [place] [phone]. Nahed Yañez METAMYELOCYTE # Normal [facility] Comment on above: Performed By: #### C ROSARIO ####[facility] Awjsjqtnaj[address] [place] [phone]. Nahed Yañez METAMYELOCYTE % Normal [facility] Comment on above: Performed By: #### C ROSARIO ####[facility] Evrcultfxm8236 [place] [phone]. Nahed Yañez MONOM# 1.30 103/ul Critically high 0.30-0.80 [facility] Comment on above: Performed By: #### C ROSARIO ####[facility] W[address]kpzof5965 [place] [phone]. Nahed Yañez MONOM% 8.0 % Normal 1.7-12.0 [facility] Comment on above: Performed By: #### C ROSARIO ####[facility] Cadmcxpmst[address] [place] [phone]. Nahed Otilio MPV 9.8 fL Normal 9.5-13.5 [facility] Comment on above: Performed By: #### Isabell PONCE ####[facility] Ehcuzyuzql8[address] [place] [phone]. Nahed Yañez MYELOCYTE # Normal [facility] Comment on above: Performed By: #### Isabell PONCE ####[facility] Ymbctnktfp57[address] [place] [phone]. Nahed Yañez MYELOCYTE % Normal [facility] Comment on above: Performed By: #### Isabell PONCE ####[facility] Un[address]wuuxw[address] [place], [place] [address]Dr. Nahed Yañez NRBC Normal [facility] Comment on above: Performed By: #### Isabell PONCE ####[facility] Cshcdmeysy6226 [place] [phone]. Rosemarieashley Otilio PLT 302 103/ul Normal 150-450 [facility] Comment on above: Performed By: #### C ROSARIO ####[facility] Wdzmlsoryj30[address] [place], [place] [address]Xl. Nahed Yañez RBC 3.79 106/ul Critically low 4.20-5.40 [facility] Comment on above: Performed By: #### C ROSARIO ####[facility] D[address]qrtpzfa2[address] [place], [place] [address]Sp. Nahed Yañez RDW 15.3 % Critically high 11.0-15.0 [facility] Comment on above: Performed By: #### C ROSARIO ####[facility] Cgibegdnzo1044 [place], [place] [address]Oc. Nahed Yañez SEG # 12.15 103/ul Critically high 1.40-6.50 [facility] Comment on above: Performed By: #### C ROSARIO ####[facility] Nklbsitjyg3850 [place], [place] [address]Tl. Nahed Yañez SEG % 75.0 % Normal 43.0-75.0 [facility] Comment on above: Performed By: #### C ROSARIO ####[facility] [address] [place], [place] [address]Mm. Nahed Otilio WBC 16.2 103/ul Critically high 4.0-11.0 [facility] Comment on above: Performed By: #### C ROSARIO ####[facility] Pzrmrgbtkb8218 [place], [place] [address]KsShaun Yañez POINT OF CARE GLUCOSEon 08-12 Glucose [Mass/Vol] 221 mg/dL Critically high 74-106 [facility] Comment on above: Performed By: #### P OCGLUC ####[facility] Zesdehtfxv2360 [place], [place] [address]XaShaun Yañez PROF 14(COMP METB)on 023 Albumin [Mass/Vol] 2.2 g/dL Critically low 3.4-5.0 [facility] Comment on above: Performed By: #### C JUDY MULLER ####[facility] Flcltacoom[address] [place] [phone] Yañez Albumin/Globulin [Mass ratio] 0.6 {ratio} Normal [facility] Comment on above: Performed By: #### C RENZO, JUDY ####[facility] X[address]fmz[address] [place], [place] [address]Dr. Nahed Yañez ALP [Catalytic activity/Vol] 87 U/L Normal 46-116 [facility] Comment on above: Performed By: #### C RENZO, JUDY ####[facility] Bxifqimmoe[address] [place], [place] [address]Dr. Nahed Yañez ALT [Catalytic activity/Vol] 17 U/L Normal 14-59 [facility] Comment on above: Performed By: #### C RENZO, JUDY ####[facility] Crdcbjlnut[address] [place], [place] [address]Dr. Nahed Yañez Anion gap [Moles/Vol] 9.4 mmol/L Normal [facility] Comment on above: Performed By: #### C RENZO, JUDY ####[facility] [address]ft[address]dkm[address] [place], [place] [address]Dr. Nahed Yañez AST [Catalytic activity/Vol] 13 U/L Critically low 15-37 [facility] Comment on above: Performed By: #### C RENZO, JUDY ####[facility] Lezffisjmf[address] [place], [place] [address]Dr. Nahed Yañez Bilirubin [Mass/Vol] 0.2 mg/dL Normal 0.2-1.0 [facility] Comment on above: Performed By: #### C RENZO, JUDY ####[facility] [address]wist[address]oz[address] [place], [place] [address]Dr. Nahed Otilio Calcium [Mass/Vol] 9.1 mg/dL Normal 8.5-10.1 [facility] Comment on above: Performed By: #### C RENZO, JUDY ####[facility] S[address]odrpmin[address] [place], [place] [address]Dr. Nahed Otilio Chloride [Moles/Vol] 103 mmol/L Normal 98-107 [facility] Comment on above: Performed By: #### C RENZO, JUDY ####[facility] Aremrfovnn[address] [place], [place] [address]Dr. Nahed Yañez CO2 [Moles/Vol] 29.1 mmol/L Normal 21.0-32.0 [facility] Comment on above: Performed By: #### C RENZO, JUDY ####[facility] Tgcvyvdmny[address] [place] [address]Dr. Nahed Yañez Creatinine [Mass/Vol] 1.05 mg/dL Critically high 0.55-1.02 [facility] Comment on above: Performed By: #### C RENZO, JUDY ####[facility] Lutcyvok[address] [place] [address]Dr. Nahed Yañez EGFR-AF CHILEAN >60 Normal >=60 [facility] Comment on above: Performed By: #### C RENZO, JUDY ####[facility] Ymtpxpfdgs8406 [place] [address]Dr. Nahed Yañez EGFR-NON AF CHILEAN 53 mL/min/1.73m2 Critically low >=60 [facility] Comment on above: Performed By: #### C RENZO, JUDY ####[facility] [address]pdlbxfwox[address] [place], [place] [address]Dr. Nahed Yañez Globulin (S) [Mass/Vol] 3.5 g/dL Normal [facility] Comment on above: Performed By: #### C RENZO, JUDY ####[facility] Bzocqoobuv[address] [place] [address]Dr. Nahed Yañez Glucose [Mass/Vol] 121 mg/dL Critically high 74-106 [facility] Comment on above: Performed By: #### C RENZO, JUDY ####[facility] Bohhrsanpk1847 [place] [address]Dr. Nahed Yañez Potassium [Moles/Vol] 4.5 mmol/L Normal 3.5-5.1 [facility] Comment on above: Performed By: #### C RENZO, JUDY ####[facility] Cajjhypjbw4[address] [place] [address]Dr. Nahed Yañez Protein [Mass/Vol] 5.7 g/dL Critically low 6.4-8.2 [facility] Comment on above: Performed By: #### C RENZO, JUDY ####[facility] Gxcbornmrv[address] [place] [address]Dr. Nahed Yañez Sodium [Moles/Vol] 137 mmol/L Normal 136-145 [facility] Comment on above: Performed By: #### C RENZO, JUDY ####[facility] Jhjklscjtk25[address] [place] [address]Dr. Nahed Yañez Urea nitrogen [Mass/Vol] 24.0 mg/dL Critically high 7.0-18.0 [facility] Comment on above: Performed By: #### C RENZO, JUDY ####[facility] [address]vtmxusuzj[address] [place], [place] [address]Dr. Nahed Yañez Urea nitrogen/Creatinine [Mass ratio] 22.9 mg/mg Normal [facility] Comment on above: Performed By: #### C RENZO, JUDY ####[facility] Xnsanhbqyg[address] [place], [place] [address]Dr. Nahde Yañez THEOPHYLLINEon 08-24-2022 THEOPHYLLINE 18.2 ug/mL Normal 10.0-20.0 [facility] Comment on above: Performed By: #### C RENZO, JUDY ####[facility] [address]yeftcib[address] [place], [place] [address]Dr. Nahed Yañez CBC W MANUAL DIFFon 08-24-19 23 ATYPICAL LYMPH # 0.20 103/ul Normal [facility] Comment on above: Performed By: #### C ROSARIO ####[facility] Rfvenvinxn[address] [place], [place] [address]Dr. Nahed Otilio ATYPICAL LYMPH % 1 % Normal [facility] Comment on above: Performed By: #### C ROSARIO ####[facility] [address]grrkdwepi[address] [place], [place] [address]Dr. Nahed Yañez BAND # 0.0 103/ul Normal 0.0-0.3 [facility] Comment on above: Performed By: #### C ROSARIO ####[facility] [address]vverdyp[address] [place], [place] [address]Dr. Nahed Yañez BAND % 0 % Normal 0-5 [facility] Comment on above: Performed By: #### C ROSARIO ####[facility] Rrfksaytjp2475 [place] [id number]. Nahed Yañez BASOM # 0.00 103/ul Normal 0.00-0.10 [facility] Comment on above: Performed By: #### C BCMAN ####[facility] Xtbdpjfnen24[address] [place] [id number]. Nahed Yañez BASOM % 0.0 % Critically low 0.2-2.0 [facility] Comment on above: Performed By: #### C BCMAN ####[facility] Tilrvisnua[address] [place] [id number]. Nahed Yañez BLAST # Normal [facility] Comment on above: Performed By: #### C BCISAIAH ####[facility] Btfcrdodpc[address] [place] [address]Dr. Nahed Yañez BLAST % Normal [facility] Comment on above: Performed By: #### C BCISAIAH ####[facility] [address]ue[address] [place], [place] [address]Dr. Nahed Yañez CORRECTED WBC Normal 4.0-11.0 [facility] Comment on above: Performed By: #### C BCISAIAH ####[facility] Selowkhris[address] [place] [address]Dr. Nahed Yañez EOS # 0.00 103/ul Normal 0.00-0.70 [facility] Comment on above: Performed By: #### C BCISAIAH ####[facility] Legpldvfja[address] [place] [address]Dr. Nahed Yañez EOS% 0.0 % Critically low 0.9-7.0 [facility] Comment on above: Performed By: #### C BCMAN ####[facility] Yxe[address]oyhfe4[address] [place] [id number]. Nahed Yañez HCT 33.5 % Critically low 36.0-48.0 [facility] Comment on above: Performed By: #### C BCMAN ####[facility] Tqheoxcspc2240 [place] [phone]. Nahed Yañez HGB 10.7 g/dl Critically low 12.0-16.0 [facility] Comment on above: Performed By: #### C ROSARIO ####[facility] Dagmlxoddb[address]957 [place] [id number]. Nahed Yañez LYMPHM # 1.39 103/ul Normal 1.20-3.80 [facility] Comment on above: Performed By: #### C ROSARIO ####[facility] Zwweazltpz7[address] [place] [id number]. Nahed Yañez LYMPHM% 7.0 % Critically low 20.5-60.0 [facility] Comment on above: Performed By: #### C ROSARIO ####[facility] Ymzolmbqvy[address] [place] [address]Dr. Nahed Yañez MCH 28.5 pg Normal 26.7-34.0 [facility] Comment on above: Performed By: #### C ROSARIO ####[facility] Xhznwtginr[address] [place] [address]Dr. Nahed Yañez MCHC 31.9 g/dl Normal 29.9-35.2 [facility] Comment on above: Performed By: #### C ROSARIO ####[facility] Exsqxxpfat39[address] [place] [address]Dr. Nahed Yañez MCV 89.1 fL Normal 81.0-99.0 [facility] Comment on above: Performed By: #### C ROSARIO ####[facility] Yevxhawfdl36[address] [place] [address]Dr. Nahed Yañez METAMYELOCYTE # Normal The [facility] Comment on above: Performed By: #### C ROSARIO ####[facility] Fcqnvdpbwm0975 [place] [phone]. Nahed Yañez METAMYELOCYTE % Normal [facility] Comment on above: Performed By: #### C ROSARIO ####[facility] Hzgkqvoyqp9065 [place] [address]Dr. Nahed Yañez MONOM# 0.40 103/ul Normal 0.30-0.80 The [facility] Comment on above: Performed By: #### C ROSARIO ####[facility] Sxhbjbfhru6979 [place] [phone]. Nahed Yañez MONOM% 2.0 % Normal 1.7-12.0 [facility] Comment on above: Performed By: #### C ROSARIO ####[facility] Sloctvprxp2762 [place] [phone]. Nahed Yañez MPV 10.0 fL Normal 9.5-13.5 The [facility] Comment on above: Performed By: #### C ROSARIO ####[facility] Avptxuprpk2654 [place] [phone]. Nahed Yañez MYELOCYTE # Normal [facility] Comment on above: Performed By: #### C ROSARIO ####[facility] Zuagrddfct5400 [place] [phone]. Nahed Yañez MYELOCYTE % Normal The [facility] Comment on above: Performed By: #### C ROSARIO ####[facility] Pfcxxvqvve2781 [place] [address]Dr. Nahed Yañez NRBC Normal The [facility] Comment on above: Performed By: #### C ROSARIO ####[facility] Hglkfphott9427 [place] [phone]. Nahed Yañez PLT 338 103/ul Normal 150-450 The [facility] Comment on above: Performed By: #### C ROSARIO ####[facility] Qhzkdmchob7912 [place] [phone]. Nahed Yañez RBC 3.76 106/ul Critically low 4.20-5.40 The [facility] Comment on above: Performed By: #### C ROSARIO ####[facility] Tpdnwmdhkp4984 [place] [phone]. Nahed Yañez RDW 15.3 % Critically high 11.0-15.0 The [facility] Comment on above: Performed By: #### C ROSARIO ####[facility] Larihiezuo6843 [place] [phone]. Nahed Yañez SEG # 17.91 103/ul Critically high 1.40-6.50 The [facility] Comment on above: Performed By: #### C ROSARIO ####[facility] Kpddqanrto6812 [place] [phone]. Nahed Yañez SEG % 90.0 % Critically high 43.0-75.0 [facility] Comment on above: Performed By: #### C BCMAN ####[facility] Kuspbriwjw6008 [place] [phone]. Nahed Yañez WBC 19.9 103/ul Critically high 4.0-11.0 [facility] Comment on above: Performed By: #### C BCMAN ####[facility] Grtsocsoer1917 [place] [address]Dr. Nahed Otilio POINT OF CARE GLUCOSEon 08-12 Glucose [Mass/Vol] 200 mg/dL Critically high 74-106 [facility] Comment on above: Performed By: #### P OCGLUC ####[facility] Mlsvdwalji0490 [place] [address]Dr. Nahed Yañez Glucose [Mass/Vol] 131 mg/dL Critically high 74-106 [facility] Comment on above: Performed By: #### P OCGLUC ####[facility] Drxugzhnzw7446 [place] [address]Dr. Nahed Yañez Glucose [Mass/Vol] 176 mg/dL Critically high 74-106 [facility] Comment on above: Performed By: #### P OCGLUC ####[facility] Eghdagkjnr9149 [place] [address]Dr. Rosemarieashley Yañez PROF 14(COMP METB)on 023 Albumin [Mass/Vol] 2.2 g/dL Critically low 3.4-5.0 [facility] Comment on above: Performed By: #### T RAFITA CMP ####[facility] Bgxeokmjcf8983 [place] [address]Dr. Nahed Otilio Albumin/Globulin [Mass ratio] 0.6 {ratio} Normal [facility] Comment on above: Performed By: #### Nydia ELLER, CMP ####[facility] Zhtyfhemrk9912 [place] [address]Dr. Nahed Otilio ALP [Catalytic activity/Vol] 101 U/L Normal 46-116 [facility] Comment on above: Performed By: #### Nydia ELLER CMP ####[facility] Gldzqbyqip2945 [place] [phone]. Nahed Yañez ALT [Catalytic activity/Vol] 19 U/L Normal 14-59 [facility] Comment on above: Performed By: #### Nydia ELLER, CMP ####[facility] Frnpbdedkb4401 [place] [address]Dr. Nahed Yañez Anion gap [Moles/Vol] 12.0 mmol/L Normal [facility] Comment on above: Performed By: #### Nydia ELLER CMP ####[facility] Lflbuvmzwd6261 [place] [address]Dr. Nahed Yañez AST [Catalytic activity/Vol] 14 U/L Critically low 15-37 [facility] Comment on above: Performed By: #### Nydia ELLER CMP ####[facility] Hdvtieetaz[address] [place], [place] [address]Dr. Nahed Yañez Bilirubin [Mass/Vol] 0.2 mg/dL Normal 0.2-1.0 [facility] Comment on above: Performed By: #### Nydia ELLER CMP ####[facility] Fxigblwgph3[address] [place], [place] [address]Dr. Nahed Otilio Calcium [Mass/Vol] 9.5 mg/dL Normal 8.5-10.1 [facility] Comment on above: Performed By: #### Nydia ELLER, CMP ####[facility] Qdazsxtpka[address] [place], [place] [address]Dr. Nahed Yañez Chloride [Moles/Vol] 105 mmol/L Normal 98-107 [facility] Comment on above: Performed By: #### Nydia ELLER CMP ####[facility] Enqdqmvkns[address] [place], [place] [phone]. Nahed Yañez CO2 [Moles/Vol] 27.9 mmol/L Normal 21.0-32.0 [facility] Comment on above: Performed By: #### Nydia ELLER, CMP ####[facility] Isyttihhrg0048[address] [place], [place] [address]Dr. Nahed Yañez Creatinine [Mass/Vol] 1.08 mg/dL Critically high 0.55-1.02 [facility] Comment on above: Performed By: #### Nydia ELLER, CMP ####[facility] Vmtfkfrtoc8034 [place] [address]Dr. Rosemarieashley Otilio EGFR-AF CHILEAN >60 Normal >=60 [facility] Comment on above: Performed By: #### Nydia ELLER CMP ####[facility] Defumecblr8002 [place] [address]Dr. Nahed Yañez EGFR-NON AF CHILEAN 52 mL/min/1.73m2 Critically low >=60 [facility] Comment on above: Performed By: #### Nydia ELLER CMP ####[facility] Cvplslbscu8[address] [place], [place] [address]Dr. Nahed Yañez Globulin (S) [Mass/Vol] 3.7 g/dL Normal [facility] Comment on above: Performed By: #### Nydia ELLER CMP ####[facility] Hpdcezzqxv54[address] [place], [place] [address]Dr. Nahed Yañez Glucose [Mass/Vol] 182 mg/dL Critically high 74-106 [facility] Comment on above: Performed By: #### Nydia ELLER CMP ####[facility] Sxjvvsrouv3357[address] [place], [place] [address]Dr. Nahed Yañez Potassium [Moles/Vol] 3.9 mmol/L Normal 3.5-5.1 [facility] Comment on above: Performed By: #### Nydia ELLER CMP ####[facility] Mqimddroqs068[address] [place], [place] [address]Dr. Nahed Yañez Protein [Mass/Vol] 5.9 g/dL Critically low 6.4-8.2 [facility] Comment on above: Performed By: #### Nydia ELLER CMP ####[facility] Nmaegmergv1601[address] [place], [place] [address]Dr. Nahed Yañez Sodium [Moles/Vol] 141 mmol/L Normal 136-145 [facility] Comment on above: Performed By: #### Nydia ELLER CMP ####[facility] Tepjizjlet735[address] [place], [place] [address]Dr. Nahed Yañez Urea nitrogen [Mass/Vol] 20.0 mg/dL Critically high 7.0-18.0 The [facility] Comment on above: Performed By: #### Nydia ELLER, CMP ####[facility] Valfyjhcgj7459[address] [place], [place] [address]Dr. Nahed Yañez Urea nitrogen/Creatinine [Mass ratio] 18.5 mg/mg Normal The [facility] Comment on above: Performed By: #### Nydia ELLER, CMP ####[facility] Nesasejtnu3563[address] [place], [place] [address]Dr. Nahed Yañez THEOPHYLLINEon 08-23-2022 THEOPHYLLINE 22.9 ug/mL Critically high 10.0-20.0 The [facility] Comment on above: Performed By: #### Nydia ELLER CMP ####[facility] Wqhickqspp1166[address] [place], [place] [address]Dr. Nahed Yañez CBC AUTO DIFFon 08-22-2022 BASO # 0.0 103/ul Normal 0.0-0.1 The [facility] Comment on above: Performed By: #### C BC ####[facility] Tfxjnjtqbn4258[address] [place], [place] [address]Dr. Nahed Yañez Basophils/100 WBC (Bld) 0.1 % Critically low 0.2-2.0 The [facility] Comment on above: Performed By: #### C BC ####[facility] Fsumtxdkse5233[address] [place], [place] [address]Dr. Nahed Yañez EO # 0.0 103/ul Normal 0.0-0.7 The [facility] Comment on above: Performed By: #### C BC ####[facility] Jvnrgcbcnm801[address] [place], [place] [address]Dr. Nahed Yañez Eosinophils/100 WBC (Bld) 0.0 % Critically low 0.9-7.0 The [facility] Comment on above: Performed By: #### C BC ####[facility] Kfnkzwkpsa6045[address] [place], [place] [address]Dr. Nahed Yañez Erythrocyte distribution width (RBC) [Ratio] 15.1 % Critically high 11.0-15.0 The [facility] Comment on above: Performed By: #### C BC ####[facility] Dfummenvyf9533 [place] [address]Dr. Nahed Yañez Hematocrit (Bld) [Volume fraction] 31.4 % Critically low 36.0-48.0 [facility] Comment on above: Performed By: #### C BC ####[facility] Emdifjywsu8326 [place] [address]Dr. Nahed Yañez Hemoglobin (Bld) [Mass/Vol] 10.2 g/dL Critically low 12.0-16.0 [facility] Comment on above: Performed By: #### C BC ####[facility] Xyvwuagqvj3183[address] [place], [place] [address]Dr. Nahed Yañez IG # 0.08 10e3/ul Critically high 0.00-0.03 [facility] Comment on above: Performed By: #### C BC ####[facility] Ilrmipnrao1208[address] [place], [place] [address]DrShaun Yañez IG % 0.6 % Critically high 0.0-0.5 [facility] Comment on above: Performed By: #### C BC ####[facility] Yxshqxhxse4067[address] [place], [place] [address]DrShaun Nahed Otilio LYMPH # 0.9 103/ul Critically low 1.2-3.8 [facility] Comment on above: Performed By: #### C BC ####[facility] Imozfzidfw4834 [place] [address]DrShaun Nahed Otilio Lymphocytes/100 WBC (Bld) 6.1 % Critically low 20.5-60.0 [facility] Comment on above: Performed By: #### C BC ####[facility] Appuicjqpu3198 [place] [address]DrShaun Rosemarieashley Yañez MANUAL DIFF REQ NO Normal [facility] Comment on above: Performed By: #### C BC ####[facility] Jgglnnidxn5[address] [place], [place] [address]DrShaun Rosemarieashley Yañez MCH (RBC) [Entitic mass] 28.3 pg Normal 26.7-34.0 [facility] Comment on above: Performed By: #### C BC ####[facility] Hkbfhcznxh0082 [place] [phone]. Nahed Otilio MCHC (RBC) [Mass/Vol] 32.5 g/dL Normal 29.9-35.2 [facility] Comment on above: Performed By: #### C BC ####[facility] Cptvmopqfj3234 [place] [phone]. Nahed Yañez MCV (RBC) [Entitic vol] 87.0 fL Normal 81.0-99.0 [facility] Comment on above: Performed By: #### C BC ####[facility] Vzsuykzlao43[address] [place], [place] [address]Dr. Nahed Yañez MONO # 0.7 103/ul Normal 0.3-0.8 [facility] Comment on above: Performed By: #### C BC ####[facility] Nrpwmgnqvh860[address] [place], [place] [address]Dr. Nahed Yañez Monocytes/100 WBC (Bld) 5.1 % Normal 1.7-12.0 [facility] Comment on above: Performed By: #### C BC ####[facility] Xxygdyscyy19[address] [place], [place] [address]Dr. Nahed Yañez NEUT # 12.2 103/ul Critically high 1.4-6.5 [facility] Comment on above: Performed By: #### C BC ####[facility] Zicdingazi[address] [place], [place] [address]Dr. Nahed Yañez Neutrophils/100 WBC (Bld) 88.1 % Critically high 43.0-75.0 The [facility] Comment on above: Performed By: #### C BC ####[facility] Btyptpypvx[address] [place], [place] [address]DrShaun Yañez Platelet mean volume (Bld) [Entitic vol] 10.2 fL Normal 9.5-13.5 The [facility] Comment on above: Performed By: #### C BC ####[facility] Aojwdjagus25[address] [place], [place] [address]Dr. Nahed Yañez PLT 271 103/ul Normal 150-450 The [facility] Comment on above: Performed By: #### C BC ####[facility] Gcihvaguzg7247 [place] [phone]. Nahed Yañez RBC 3.61 106/ul Critically low 4.20-5.40 [facility] Comment on above: Performed By: #### C BC ####[facility] Dlivkooxqp1777 [place] [phone]. Nahed Otilio WBC 13.9 103/ul Critically high 4.0-11.0 [facility] Comment on above: Performed By: #### C BC ####[facility] Onlmuuozwn5937 [place] [phone]. Nahed Otilio CULTURE URINEon 08-22-2022 CULTURE URINE Culture Observations : LIGHT GROWTH OF MIXED GENITAL MIGUEL. NO POTENTIAL PATHOGENS SEEN. Normal [facility] Comment on above: Performed By: #### U RCX ####[facility] Sgbkeulhdc2482 [place] [address]DrShaun Yañez POINT OF CARE GLUCOSEon 08-12 Glucose [Mass/Vol] 252 mg/dL Critically high 74-106 [facility] Comment on above: Performed By: #### P OCGLUC ####[facility] Vounsvrvwh3593 [place] [address]Dr. Nahed Yañez Glucose [Mass/Vol] 293 mg/dL Critically high 74-106 [facility] Comment on above: Performed By: #### P OCGLUC ####[facility] Wnkpjgbivm9061 [place] [address]Dr. Nahed Yañez Glucose [Mass/Vol] 292 mg/dL Critically high 74-106 [facility] Comment on above: Performed By: #### P OCGLUC ####[facility] Exqgqqrxzh8071 [place] [address]Dr. Nahed Yañez PROF 14(COMP METB)on 023 Albumin [Mass/Vol] 2.1 g/dL Critically low 3.4-5.0 [facility] Comment on above: Performed By: #### C MP ####[facility] Jfrlsqgbdn7399[address] [place], [place] [address]Dr. Nahed Otilio Albumin/Globulin [Mass ratio] 0.5 {ratio} Normal [facility] Comment on above: Performed By: #### C MP ####[facility] Ipamoojnam6933 [place] [address]Dr. Nahed Otilio ALP [Catalytic activity/Vol] 92 U/L Normal 46-116 [facility] Comment on above: Performed By: #### C MP ####[facility] Ekndjwmwqd2450 [place] [address]Dr. Nahed Otilio ALT [Catalytic activity/Vol] 19 U/L Normal 14-59 [facility] Comment on above: Performed By: #### C MP ####[facility] Goezufcugl6958[address] [place], [place] [address]Dr. Nahed Yañez Anion gap [Moles/Vol] 15.9 mmol/L Normal [facility] Comment on above: Performed By: #### C MP ####[facility] Fohackykyq2293[address] [place], [place] [address]Dr. Rosemarieashley Otilio AST [Catalytic activity/Vol] 8 U/L Critically low 15-37 [facility] Comment on above: Performed By: #### C MP ####[facility] Fllwzzwtau35[address] [place], [place] [address]Dr. Nahed Yañez Bilirubin [Mass/Vol] 0.3 mg/dL Normal 0.2-1.0 [facility] Comment on above: Performed By: #### C MP ####[facility] Bnfmqrkijq9005[address] [place], [place] [address]Dr. Nahed Yañez Calcium [Mass/Vol] 9.4 mg/dL Normal 8.5-10.1 [facility] Comment on above: Performed By: #### C MP ####[facility] Upybjeysnd6624[address] [place], [place] [address]Dr. Nahed Yañez Chloride [Moles/Vol] 101 mmol/L Normal 98-107 [facility] Comment on above: Performed By: #### C MP ####[facility] Osmiexqsjy2048[address] [place], [place] [address]Dr. Nahed Yañez CO2 [Moles/Vol] 22.5 mmol/L Normal 21.0-32.0 [facility] Comment on above: Performed By: #### C MP ####[facility] Hxlpqzqhtg7566 [place] [address]Dr. Nahed Yañez Creatinine [Mass/Vol] 1.16 mg/dL Critically high 0.55-1.02 [facility] Comment on above: Performed By: #### C MP ####[facility] Lcgyuslytz1764 [place] [address]Dr. Nahed Yañez EGFR-AF CHILEAN 58 mL/min/1.73m2 Critically low >=60 [facility] Comment on above: Performed By: #### C MP ####[facility] Cokudxvial4[address] [place], [place] [address]Dr. aNhed Yañez EGFR-NON AF CHILEAN 47 mL/min/1.73m2 Critically low >=60 [facility] Comment on above: Performed By: #### C MP ####[facility] Bkmrthxcez9538[address] [place], [place] [address]Dr. Nahed Yañez Globulin (S) [Mass/Vol] 4.2 g/dL Normal [facility] Comment on above: Performed By: #### C MP ####[facility] Emwqglivrf8245[address] [place], [place] [address]Dr. Nahed Yañez Glucose [Mass/Vol] 409 mg/dL Critically high 74-106 [facility] Comment on above: Performed By: #### C MP ####[facility] Oqsjakejev2736[address] [place], [place] [address]Dr. Nahed Yañez Potassium [Moles/Vol] 3.4 mmol/L Critically low 3.5-5.1 [facility] Comment on above: Performed By: #### C MP ####[facility] Gkawdhwwwp064[address] [place], [place] [address]Dr. Nahed Yañez Protein [Mass/Vol] 6.3 g/dL Critically low 6.4-8.2 Th e [facility] Comment on above: Performed By: #### C MP ####[facility] Vaentcbtim3298[address] [place], [place] [address]DrShaun Yañez Sodium [Moles/Vol] 136 mmol/L Normal 136-145 [facility] Comment on above: Performed By: #### C MP ####[facility] Quyodgrugn342[address] [place], [place] [address]Dr. Nahed Yañez Urea nitrogen [Mass/Vol] 16.0 mg/dL Normal 7.0-18.0 [facility] Comment on above: Performed By: #### C MP ####[facility] Wjdxmxwsea1537[address] [place], [place] [address]Dr. Nahed Yañez Urea nitrogen/Creatinine [Mass ratio] 13.8 mg/mg Normal [facility] Comment on above: Performed By: #### C MP ####[facility] Npbbcauwaw8222[address] [place], [place] [address]Dr. Nahed Yañez THEOPHYLLINEon 08-22-2022 THEOPHYLLINE 13.4 ug/mL Normal 10.0-20.0 [facility] Comment on above: Performed By: #### T RAFITA ####[facility] Qzyqpkubir745[address] [place], [place] [address]Dr. Nahed Yañez UA RANDOM W/MICROSCOPICon BACTERIA NONE SEEN Normal NONE SEEN [facility] Comment on above: Performed By: #### U AMIC ####[facility] Yazmxaahus4[address] [place], [place] [address]Dr. Nahed Yañez Bilirubin Ql (U) Negative Normal NEGATIVE The [facility] Comment on above: Performed By: #### U AMIC ####[facility] Vfzmwpnejh43[address] [place], [place] [address]Dr. Nahed Yañez CAST NONE SEEN Normal NONE SEEN [facility] Comment on above: Performed By: #### U AMIC ####[facility] Sqrzpgykpb0924[address] [place], [place] [address]Dr. Nahed Yañez Clarity (U) CLEAR Normal CLEAR The [facility] Comment on above: Performed By: #### U AMIC ####[facility] Uchjvmevvn468[address] [place], [place] [address]Dr. Nahed Yañez Color (U) LT. YELLOW Normal YELLOW The [facility] Comment on above: Performed By: #### U AMIC ####[facility] Usyzvqrfhi7617 [place] [address]Dr. Nahed Yañez Crystals LM Nom (Urine sed) NONE SEEN Normal NONE SEEN The [facility] Comment on above: Performed By: #### U AMIC ####[facility] Benkqgdnrw3047 [place] [address]Dr. Nahed Yañez Epithelial cells LM Ql (Urine sed) RARE Normal NONE SEEN /RARE The [facility] Comment on above: Performed By: #### U AMIC ####[facility] Ynaflbbxta5736 [place] [address]Dr. Nahed Yañez Glucose Ql (U) 100 mg/dl Abnormal NEGATIVE The [facility] Comment on above: Performed By: #### U AMIC ####[facility] Unmtdibagd5[address] [place], [place] [address]Dr. Nahed Yañez Hemoglobin Ql (U) Negative Normal NEGATIVE The [facility] Comment on above: Performed By: #### U AMIC ####[facility] Dxfxpmytbb7407[address] [place], [place] [address]Dr. Nahed Yañez Ketones Ql (U) Negative Normal NEGATIVE The [facility] Comment on above: Performed By: #### U AMIC ####[facility] Sbnwjqohga224[address] [place], [place] [address]Dr. Nahed Yañez LEUKOCYTES Negative Normal NEGATIVE The [facility] Comment on above: Performed By: #### U AMIC ####[facility] Tolwcxpiea9054[address] [place], [place] [address]Dr. Nahed Yañez MUCOUS NONE SEEN Normal NONE SEEN The [facility] Comment on above: Performed By: #### U AMIC ####[facility] Ecpsystahx7035 [place] [address]Dr. Nahed Yañez Nitrite Ql (U) Negative Normal NEGATIVE The [facility] Comment on above: Performed By: #### U AMIC ####[facility] Bxjqqozrke4293 [place] [address]Dr. Nahed Yañez pH (U) 5.5 [pH] Normal 5-9 The [facility] Comment on above: Performed By: #### U AMIC ####[facility] Dflpdzzalk3770 [place] [address]Dr. Nahed Yañez RBC NONE SEEN Abnormal 0-2 The [facility] Comment on above: Performed By: #### U AMIC ####[facility] Tondfhrawm4461 [place] [address]Dr. Nahed Yañez SPEC GRAVITY 1.020 Normal 1.005-<=1.02 5 The [facility] Comment on above: Performed By: #### U AMIC ####[facility] Ragvfexekd1765 [place] [address]Dr. Nahed Yañez UA PROTEIN Negative Normal NEGATIVE/ TRACE The [facility] Comment on above: Performed By: #### U AMIC ####[facility] Juwluixzok022[address] [place] [address]Dr. Nahed Yañez Urobilinogen Qn (U) 0.2 {Alem'U}/dL Normal 0.2 - 1. 0 The [facility] Comment on above: Performed By: #### U AMIC ####[facility] Grzepnnzcv[address] [place], [place] [address]Dr. Nahed Yañez WBC NONE SEEN Normal NONE SEEN The [facility] Comment on above: Performed By: #### U AMIC ####[facility] Bldjpautvw[address] [place], [place] [address]Dr. Nahed Yañez BLOOD GASES BTYon 08-21-2022 02 MODE ROOM AIR Normal The Premier [facility] Comment on above: Performed By: #### A BG ####[facility] Zjdyncegvl[address] [place], [place] [address]Dr. Nahed Yañez ALLENS TEST Positive Normal [facility] Comment on above: Performed By: #### A BG ####[facility] Accxsbmral[address] [place], [place] [address]Dr. Nahed Yañez Base excess Calc (Bld) [Moles/Vol] 3.2 mmol/L Critically high -2.0-2.0 [facility] Comment on above: Performed By: #### A BG ####[facility] Pqjxijgfbf[address] [place], [place] [address]Dr. Nahed Yañez BIPAP PRESSURE Normal The [facility] Comment on above: Performed By: #### A BG ####[facility] Wsfvjdmwan[address] [place] [address]Dr. Nahed Yañez CPAP Normal [facility] Comment on above: Performed By: #### A BG ####[facility] Yoldkscabq22[address] [place] [address]Dr. Nahed Yañez FIO2 Normal [facility] Comment on above: Performed By: #### A BG ####[facility] Nrfazxbizf1533 [place] [address]Dr. Nahed Yañez HCO3 (Bld) [Moles/Vol] 26.8 mmol/L Critically high 22.0-26 .0 [facility] Comment on above: Performed By: #### A BG ####[facility] Qfzlmyizre[address] [place], [place] [address]Dr. Nahed Yañez LPM Normal [facility] Comment on above: Performed By: #### A BG ####[facility] Eavshtszlk[address] [place], [place] [address]Dr. Nahed Yañez MINUTE VOLUME Normal The [facility] Comment on above: Performed By: #### A BG ####[facility] Xxofkbvmum3085[address] [place], [place] [address]Dr. Nahed Yañez Oxygen (Bld) [Partial pressure] 55.1 mm[Hg] Critically low 80.0-100.0 [facility] Comment on above: Performed By: #### A BG ####[facility] Zvoycxxfmn[address] [place], [place] [address]Dr. Nahed Yañez Oxygen saturation in Blood 90.2 % Critically low 95.0-100.0 [facility] Comment on above: Performed By: #### A BG ####[facility] Utrwaikzyh6[address] [place], [place] [address]Dr. Nahed Yañez PCO2 36.7 mmHg Normal 35.0-45.0 [facility] Comment on above: Performed By: #### A BG ####[facility] Uixvoihjrk6417[address] [place], [place] [address]Dr. Nahed Yañez PEEP Normal [facility] Comment on above: Performed By: #### A BG ####[facility] Bxxymdmgzq8336 [place] [address]Dr. Nahed Yañez pH (Bld) 7.472 [pH] Critically high 7.350-7.450 [facility] Comment on above: Performed By: #### A BG ####[facility] Lkejppntuw52[address] [place] [address]Dr. Nahed Yañez PIP Normal [facility] Comment on above: Performed By: #### A BG ####[facility] Dfxanzmgll9684 [place] [address]Dr. Nahed Yañez PS [facility] Comment on above: Performed By: #### A BG ####[facility] Fhbgppsxkb1443[address] [place], [place] [address]Dr. Nahed Yañez PUNCTURE SITE LR Normal [facility] Comment on above: Performed By: #### A BG ####[facility] Yeudastsrm060[address] [place], [place] [address]Dr. Nahed Yañez RATE [facility] Comment on above: Performed By: #### A BG ####[facility] Owgsenewzw[address] [place], [place] [address]Dr. Nahed Yañez VENT MODE [facility] Comment on above: Performed By: #### A BG ####[facility] Uawjjgsuni8[address] [place], [place] [address]Dr. Nahed Yañez [place] [facility] Comment on above: Performed By: #### A BG ####[facility] Tqsievavcp[address] [place], [place] [address]Dr. Nahed Yañez BNPon 08-21-2022 Natriuretic peptide B (Bld) [Mass/Vol] 131.0 pg/mL Normal <=900.0 [facility] Comment on above: Performed By: #### B SUPERVISOR BROADLOOM ####[facility] Kaqplhbysk[address] [place], [place] [address]Dr. Nahed Yañez CARDIAC FRANCISCO 3-6on 3 CK [Catalytic activity/Vol] 17 U/L Critically low 26-192 [facility] Comment on above: Performed By: #### C MREP ####[facility] Fdqslcpngf07[address] [place] [phone]. Nahed Yañez CK.MB [Mass/Vol] ng/mL Normal <=3.60 The [facility] Comment on above: Performed By: #### C MREP ####[facility] Imflqcbltl6678 [place] [phone]. Nahed Yañez HSTROP 25.1 pg/mL Normal 4.0-51.3 [facility] Comment on above: Result Comment: CUT- OFF POINTS HAVE BEEN ESTABLISHED BASED ON THE FOURTH UNIVERSAL DEFINITIONS OF MYOCARDIALINFARCTION. THE UPPER REFERENCE LIMIT (URL) OF TROPONIN, DEFINED THE 99TH PERCENTILE OFcTnI DISTRIBUTION IN A REFERENCE POPULATION, HAS BEEN CONFIRMED THE DECISION THRESHOLDFOR [place] DIAGNOSIS. Performed By: #### C MREP ####[facility] Mayrimctyn[address] [place] [phone]. Nahed Yañez CARDIAC FRANCISCO ADMITon 023 CK [Catalytic activity/Vol] 39 U/L Normal 26-192 [facility] Comment on above: Performed By: #### B RENZO, CMADM ####[facility] Rtlhpftugt3420 [place] [phone]. Nahed Yañez CK.MB [Mass/Vol] ng/mL Normal <=3.60 The [facility] Comment on above: Performed By: #### B RENZO, CMADM ####[facility] Xzqeckzebp0628 [place] [phone]. Nahed Yañez HSTROP 24.4 pg/mL Normal 4.0-51.3 [facility] Comment on above: Result Comment: CUT- OFF POINTS HAVE BEEN ESTABLISHED BASED ON THE FOURTH UNIVERSAL DEFINITIONS OF MYOCARDIALINFARCTION. THE UPPER REFERENCE LIMIT (URL) OF TROPONIN, DEFINED THE 99TH PERCENTILE OFcTnI DISTRIBUTION IN A REFERENCE POPULATION, HAS BEEN CONFIRMED THE DECISION THRESHOLDFOR [place] DIAGNOSIS. Performed By: #### B RENZO, CMADM ####[facility] Nvglsarnwx0585 [place] [phone]. Nahed Yañez ANDRE 48 ng/mL Normal 9-82 [facility] Comment on above: Performed By: #### B RENZO, CMADM ####[facility] Rylqschezn[address] [place] [address]Dr. Nahed Otilio CBC AUTO DIFFon 08-21-2022 BASO # 0.0 103/ul Normal 0.0-0.1 [facility] Comment on above: Performed By: #### C BC ####[facility] Zfxbwclemv[address] [place], [place] [address]Dr. Nahed Yañez Basophils/100 WBC (Bld) 0.2 % Normal 0.2-2.0 [facility] Comment on above: Performed By: #### C BC ####[facility] Zhiampezfr1201[address] [place], [place] [address]Dr. Nahed Yañez EO # 0.3 103/ul Normal 0.0-0.7 [facility] Comment on above: Performed By: #### C BC ####[facility] Invctttwpy[address] [place], [place] [address]Dr. Nahed Yañez Eosinophils/100 WBC (Bld) 1.5 % Normal 0.9-7.0 [facility] Comment on above: Performed By: #### C BC ####[facility] Nqydclorjq0763[address] [place], [place] [address]Dr. Nahed Yañez Erythrocyte distribution width (RBC) [Ratio] 15.0 % Normal 11.0-15.0 [facility] Comment on above: Performed By: #### C BC ####[facility] Ydmtfouuvf[address] [place], [place] [address]Dr. Nahed Yañez Hematocrit (Bld) [Volume fraction] 41.4 % Normal 36.0-48.0 [facility] Comment on above: Performed By: #### C BC ####[facility] Vdwrlhxbhk39[address] [place], [place] [address]Dr. Nahed Yañez Hemoglobin (Bld) [Mass/Vol] 13.5 g/dL Normal 12.0-16.0 [facility] Comment on above: Performed By: #### C BC ####[facility] Qtyhzpaklo[address] [place], [place] [address]Dr. Nahed Yañez IG # 0.18 10e3/ul Critically high 0.00-0.03 [facility] Comment on above: Performed By: #### C BC ####[facility] Kgvwndsgxp9308 [place] [phone]. Rosemarieashley Yañez IG % 1.0 % Critically high 0.0-0.5 [facility] Comment on above: Performed By: #### C BC ####[facility] Djjmridbkr7088 [place] [phone]. Nahed Yañez LYMPH # 2.5 103/ul Normal 1.2-3.8 [facility] Comment on above: Performed By: #### C BC ####[facility] Kswgelgdxj6188 [place] [phone]. Nahed Yañez Lymphocytes/100 WBC (Bld) 14.0 % Critically low 20.5-60.0 [facility] Comment on above: Performed By: #### C BC ####[facility] Aorhlfjmyi4[address] [place] [address]Dr. Nahed Yañez MANUAL DIFF REQ NO Normal [facility] Comment on above: Performed By: #### C BC ####[facility] Vzzgkjjape3153 [place] [phone]. Nahed Otilio MCH (RBC) [Entitic mass] 28.5 pg Normal 26.7-34.0 [facility] Comment on above: Performed By: #### C BC ####[facility] Vsdnghcqsa3899 [place] [phone]. Nahed Yañez MCHC (RBC) [Mass/Vol] 32.6 g/dL Normal 29.9-35.2 [facility] Comment on above: Performed By: #### C BC ####[facility] Udkvbdgmzw9107 [place] [phone]. Nahed Yañez MCV (RBC) [Entitic vol] 87.3 fL Normal 81.0-99.0 [facility] Comment on above: Performed By: #### C BC ####[facility] Sgjupxnkle7[address] [place] [phone]. Nahed Yañez MONO # 1.2 103/ul Critically high 0.3-0.8 The [facility] Comment on above: Performed By: #### C BC ####[facility] Pfxklerkoo7473 [place] [phone]. Nahed Yañez Monocytes/100 WBC (Bld) 6.8 % Normal 1.7-12.0 [facility] Comment on above: Performed By: #### C BC ####[facility] Tdhpsgsium5386 [place] [phone]. Nahed Yañez NEUT # 13.8 103/ul Critically high 1.4-6.5 The [facility] Comment on above: Performed By: #### C BC ####[facility] Vhiefzcrxw5297 [place] [phone]. Nahed Yañez Neutrophils/100 WBC (Bld) 76.5 % Critically high 43.0-75.0 [facility] Comment on above: Performed By: #### C BC ####[facility] Bgyzrlbmga2554 [place] [address]Dr. Nahed Yañez Platelet mean volume (Bld) [Entitic vol] 10.5 fL Normal 9.5-13.5 [facility] Comment on above: Performed By: #### C BC ####[facility] Easukjwfle[address] [place], [place] [address]Dr. Nahed Yañez PLT 319 103/ul Normal 150-450 [facility] Comment on above: Performed By: #### C BC ####[facility] Hahshirsqh75[address] [place] [phone]. Nahed Yañez RBC 4.74 106/ul Normal 4.20-5.40 [facility] Comment on above: Performed By: #### C BC ####[facility] Qgphzpfwok9570 [place] [phone]. Nahed Yañez WBC 18.0 103/ul Critically high 4.0-11.0 The [facility] Comment on above: Performed By: #### C BC ####[facility] Yepbu[address]azw[address] [place], [place] [id number]. Nahed Yañez CULTURE BLOODon 08-21-2022 Microscopic examination of blood, culture Culture Observations: NO GROWTH AT 5 DAYS. Normal [facility] Comment on above: Performed By: #### B LDCX2 ####[facility] Qndcgrjdap55[address] [place] [address]Dr. Nahed Yañez Microscopic examination of blood, culture Culture Observations: NO GROWTH AT 5 DAYS. Normal [facility] Comment on above: Performed By: #### B LDCX1 ####[facility] Cmelnuweux[address] [place] [address]Dr. Nahed Yañez Covid-19 PCR (CVDTB)on 08-12 SARS-CoV-2 (COVID-19) RNA MIRNA+probe Ql (Unsp spec) Not detected Normal NOT DETECTED [facility] Comment on above: Result Comment: When diagnostic [...] for this test is supported by the [place] of [employer] and Human Service's declaration that [...] be used). Performed By: #### C VDTBH ####[facility] Leafqemaff[address] [place] [address]Dr. Nahed Yañez LACTATE/LACTIC ACIDon 2022 Lactate [Moles/Vol] 1.1 mmol/L Normal 0.4-2.0 [facility] Comment on above: Performed By: #### L ACT ####[facility] Exthewkcor3186 [place] [phone]. Nahed Yañez Lactate [Moles/Vol] 2.4 mmol/L Critically high 0.4-2.0 [facility] Comment on above: Performed By: #### L ACT ####[facility] Vckauaaxvg29[address] [place] [address]Dr. Nahed Yañez POINT OF CARE GLUCOSEon 08-12 Glucose [Mass/Vol] 453 mg/dL Critically high 74-106 [facility] Comment on above: Performed By: #### P OCGLUC ####[facility] Lcpwobazdl23[address] [place] [address]Dr. Rosemarieashley Yañez Glucose [Mass/Vol] 358 mg/dL Critically high 74-106 [facility] Comment on above: Performed By: #### P OCGLUC ####[facility] Oqphoizdgp3076 [place] [address]Dr. Nahed Yañez Glucose [Mass/Vol] 98 mg/dL Normal 74-106 [facility] Comment on above: Performed By: #### P OCGLUC ####[facility] Peafjahnqb70[address] [place] [address]Dr. Nahed Yañez PROF CHEM 8 (BAS METB)on Anion gap [Moles/Vol] 14.7 mmol/L Normal [facility] Comment on above: Performed By: #### B MP, CMADM ####[facility] Zceaubwgue[address] [place], [place] [address]Dr. Nahed Yañez Calcium [Mass/Vol] 9.6 mg/dL Normal 8.5-10.1 [facility] Comment on above: Performed By: #### B MP, CMADM ####[facility] Fagvcwmqut[address] [place] [address]Dr. Nahed Yañez Chloride [Moles/Vol] 95 mmol/L Critically low 98-107 [facility] Comment on above: Performed By: #### B MP, CMADM ####[facility] Iwtjixzlxn[address] [place], [place] [address]Dr. Nahed Yañez CO2 [Moles/Vol] 25.2 mmol/L Normal 21.0-32.0 [facility] Comment on above: Performed By: #### B MP, CMADM ####[facility] Kkumbkqtqt1238 [place] [address]Dr. Nahed Yañez Creatinine [Mass/Vol] 1.15 mg/dL Critically high 0.55-1.02 [facility] Comment on above: Performed By: #### ERICK Ordonez MP ####[facility] Lasxikckmk[address] [place] [address]Dr. Nahed Yañez EGFR-AF CHILEAN 58 mL/min/1.73m2 Critically low >=60 [facility] Comment on above: Performed By: #### ERICK Ordonez MP ####[facility] Lotxhtorik32[address] [place] [address]Dr. Nahed Yañez EGFR-NON AF CHILEAN 48 mL/min/1.73m2 Critically low >=60 [facility] Comment on above: Performed By: #### ERICK Ordonez MP ####[facility] Yxnyfaftik26[address] [place] [address]Dr. Nahed Yañez Glucose [Mass/Vol] 191 mg/dL Critically high 74-106 [facility] Comment on above: Performed By: #### ERICK Ordonez MP ####[facility] Uffocvouic[address] [place] [address]Dr. Nahed Yañez Potassium [Moles/Vol] 3.9 mmol/L Normal 3.5-5.1 [facility] Comment on above: Performed By: #### ERICK Ordonez MP ####[facility] Xsuhjpaiic65[address] [place] [address]Dr. Nahed Yañez Sodium [Moles/Vol] 131 mmol/L Critically low 136-145 [facility] Comment on above: Performed By: #### ERICK Ordonez MP ####[facility] Ipsfwkikvq4557 [place] [address]Dr. Nahed Yañez Urea nitrogen [Mass/Vol] 15.0 mg/dL Normal 7.0-18.0 [facility] Comment on above: Performed By: #### ERICK Ordonez MP ####[facility] Kjpnwzylmm12[address] [place] [address]Dr. Nahed Yañez Urea nitrogen/Creatinine [Mass ratio] 13.0 mg/mg Normal [facility] Comment on above: Performed By: #### ERICK Ordonez MP ####[facility] Vzyzgqxpqd2874 [place], [place] [address]VoShaun Yañez XR CHEST 2 Von 08-21-2022 XR CHEST 2 V Normal [facility] Coding Summary.on 08-11-2022 Coding Summary. CD:[id number] W w+PGhlYWQ+DL0MSSAdQ25 ceASynM4yF1UWJFvVEbvb WJRORGsLOjVdlxWkFZ6uz XNjZXJu IC8+QZ4lTOHxYracsOJjx 3R3eKZ8S46iyp4oGYksoU G2IISbZcIhfepne7fjqBm 6IDcuNmluOyBt FPWjxQ11ECN1jF65Pr75w IDiwFVmk9kebBj4JaFfDZ ScLQI6oHmnSThav0UqPNY oM82neUQql0I4 YDAqeBcryYQrUjVqwHO4n F2wKStwtewnp7gtmoxnJt f2xj73gVXhn7V5cBJ1I1H qacJ3PIYttWNc JpxmuUIVcU7wyxmnq6tvq kpeJiRjHJUiOQk2LFy9OU ItpSuqHtGwZR35EYD3JML agxUoR0InJEUf dSujEeC1o2B0Nl2LF5RNA dtmO1LDMIWNTTjbmQR+PC 92ez75B0GeHgzhBgm8SOJ tTID4uKI4zA1p WJGeTSklb7H0uUV8S8Myt wEgkh4qd3rlCDXgAAvzQ1 1uzCOih7Q6KRAeeJX5CYS inFjsOlPjxP60 Oyc+PVRmhHgwr6YeVisye 3pck1cspAm8WmdoKZKcpn OurPdxNUU4c6TqCb1aGHM oaXW8fNX5gF2b WnIyMdE3RAmvS836CgVuh OEaYkmlF62qF5EmtGW+PH AaWty4YNLwyClgAO6rG9N hZGRpbmctbGVm bQwhPY3xPUXfyicvYMWnj T6xPWDeX0w8TkZlXwM6DW zrU7NrIHOuqlakKg51yJ9 tTwJmNoG5IGud R0HzljE0CCHegYJkVUkdK LQ4H01uy4M8IFWbZDCvTP N9iOZ2vN3iaFhqlicmySC mdDsgdmVydGlj MKajTMpqB278LUTlnKzhZ kNvZGluZyBEYXRlOiAgMD MvMzEvMjAyMzwvdGQ+PHR hVFU5vUrqAUXo eUDyYCucPu2mrEzvyUsrP M8wECOiadznBPPaiS4pVO JfnRHwmTntZC1sQZTzyog ih112JoLhJYN9 UTAmkBRrL6HfeS7pTkLjU GYqDAOxT9FpiGHjSTkqH1 83TXrlVdR0SJKieqVgG3H sLWFsaWduOiB0 y2T7Jz9Ut0KakuxvL1Ong KDhRcIaOqidWKp5C2GgJz wvdHI+RD41TFZrTT25TNk 1JJG3nTgcETta AOGxV3OqqX2aCpAcHSXwP GRkOyc+PHRhYmxlIHdpZH RoPScxMDAlJyBzdHlsZT0 nCs5pIMIeKOAw xKqzyCSeEmQkp6evQCCvC RquSV5swFepK5IroBH5QV Sea2g9Zl74J24bU9XpyEA +PZZylKO3yXM9 wE6wZnBiVtK1YNysW341N zQctVPuHlcjc7ujh1ealR p3KzZ6UTUxwtLirFqhHUO 1i8YxWa41L11h IHdpZHRoPSIxNSUiIHZhb Fgeff4fqD3lKu7+PGNvbC Q9eRF5gU0kRsXfYhD9HVv xA266XtAxfOXi Xhwma9kdv0lapSb1FvIxM WGaomQufVmfPQH7a1WiVk 72L1NpgUvas4RqWvu9tx8 6kQTgh3C6aLL3 B5RnMNUusvalmJEzrBueO I7yHRTcjzliHZYkrY4sHI MhQ7q0QbVxMmL0KSpvW0H rlnH1BJNbrBRk GUZrzYJMcS2dvihhf5lac etpBcFcOSMpAYf8BEj1TF CmjGwkPuMhHJU8DzR0LVP 8pVToyI6inMdu cilfoF5sCbs+TBL5lSMmy XYHNO0oVbnhgQU+PHRkIH P9bIgyXPvuQTEhgS6yAVI nY8p9CpMkJdO9 UKshV0FogoM3ALKzgETgJ YTyuEVGwM2nrctjd9wbkc ajCiBhBKFgIIt4ENl1WPO saWduOiBsZWZ0 YnT0CYH4sAJdfL0nsDyfd rntaF2gHul+QmlydGggRG E9RHq5P2LrWyn2BHMafCv xYV2pxASqCUaw Yz7swXisqHkeZO6xZJByg vfbq531SkDjl9coCZIqgQ GdHEswFFZ2V79av5A5UEX rYJImMYR9uYE8 zA4ikDefkewfqKTczDxdy hCswVstPLaaFAjvB175MG RzmJnfAoTrQCb0F9EhUdn 6IHUncZpyTH8g gYDtPRfaXi4qsZlumGvbR Z4kDTWvbpveh914NfFzg6 biGQOiyDZaFTxsNDT5Z54 ja1J7BLUhPUOl YEI0tCL6zA8txEvxfflvd GVmdDsgdmVydGljYWwtYW kvW378CLFugGskFiQcjKi 2F1TqHmm8ZSSj mFrtDJ8ehUUaMSqaWf8ez VbdiZfiOU3iUVKocrdpo2 00DeQqd6iaCHXsgYVqGPm iLGW0G63yw9C8 JFCuNDVaFFJ3mQK4uO7da GlnbjogbGVmdDsgdmVydG piYYujPPotS267MWQekYl nPlBhdGllbnQg RDafYSk4D1DfCnbntUE+P O03BOHyKE99bASzpFFdn2 bhuCt6KuSnDVKqKQY8hPu tDHhsc3DnYDTy F25siYMoy3G8JZHskLzuf GFrRxXoqQP5jF2dDZbelh thl7ahuokyBtmmr6pnba0 7vA77Z22qQFhx ZHRoPSIzMCUiIHZhbGlnb h1lbJ4cOl2+JLRhvHT4wQ D3hT7bRELfWpR4ZIkjG04 9InRvcCIvPjxj h1egj1apvBy3AvW5KZChd mAduPznLJO0j0MfKv36O8 9sIHdpZHRoPSIyMCUiIHZ odIqvev0pvF3x Ii8+TFHrqPY5sUY1nP3jD lUoHzM3JEwpG451HoHxyT FwSnieJ46kP9VwxSQ+PHR mKxx6JDBlhKsm KQ1luTLiVInpXy0qUZQ6G zScBrKkLYgoK5XyXYMear sjwtrsoHT7GYMvRSXzfX4 1Td6byPuxUFCb tTUOlK0dadpny1ilttupI gFjHROyLHa9WMe5RFYjpY qtCvWzGII8LrD1AUU9jOH jcH3gvVayxzpg eM5gI2HyTLSgdzccBj90o E0rHnIdMgI6CTanHgr+TU JCSW9RRURTAGIZOYW3N1Q wQgp7VVRcpZkr TZ4mlDPiKFmlGv7vpOzar PnbWR0cRWOwrrbpAVMehP 7zITZopHMhbEuaHF1dKRD okuzxl621YkKf WRY0WVBslTKvQ0HshM0yS lSwRZIuOAFoX8TtwUUiLA fpJ981KAfiQcQ0IWFioaT dI3SmXMBcoBfc UaZ3o5H7Mw1yWG3hDS9eH XKwMT22ON77wCRkr2S6tT H1C9DkWGRaozdfaefouAW 3UXUcYMCkxS50 fVCqUFycZs7mz2P0z012S MDbIXWtiS82Oo7gtTqyYW QheNCGuE0dunqnx6njznz gIzAwMDAwMDt0 TMz7ZZNbbMjsEuFkSDS6K fI5QZG5lLIkhO1nzWbtgp zelB4tVvl+NjEgWWVhcnM 9K7LeHpx1AMJl vDncDI5duKDpPSmxYq8kr GaseVnpTM9eUZVfrvqfXQ JzkH5xPUYjdTMvzLoaLQ6 oBDUuzhfjn306 FaSkLBX4WAOgpFTvR7Wzt T2tXnMsALOnSXJlP4GdoW UaXOdmB709MMrcOkR0BNV xkoHhS7RxFCJf lNcrAaZ3y3O4Sl0NJW6ta IH0S2PuNhr6FRWfaDfnGU 7ixCKtLVxhPw8hcOhciYh nCP0uLAAnuaqq NJDpyP9lKWTjeJLrgFpqG Y9pRBOesvshz537FySvJA V0DTOtcMRzF5QxjX5eOpK vUNVnXLFaN9Nr dXIvHInoW809NLkxVsD7H KLpctBrS4IlKBXtpAcoWv S0a5M8Sf2UxHUeF5DsU8n 0F5DdOfwodYP+ JD14QUHxNX48sDJijYAbj 3burYn4LzDySWEsRNN6hJ qoOEimz1EdJBSwE30tjOO hl6U9TPBujUzi kOKxIoKuyKH0oW4kIUkms fyob7fqugqgBrawk5mfns 22jP96F47oGWhcDERiHHH zMCUiIHZhbGln wm0dqO7rAv7+KPOvuQL8u AZ6wR3zIkNdVaU3FCcuK7 95PeGkfMSoFveqo0fjw1x abGb8IrZfVSRu beFqwPotPQH2x7AnXh56I 29sIHdpZHRoPSIyMCUiIH DshFpsey2iwP6rUp2+PC9 cq2rpnk44xX17 dHI+JKHeHPA6pZqiHYzbH UEqqT3nTTrtKuA8OJBmLk GapJ49kCMaASygWn1hoWn klOvmQT2yRXWw xhitl057MsMzb0fkKDTir ABjPHzqJFN6K10sb4J5FZ PkALWzWWT5mSL2xS5eiAm nbjogbGVmdDsg kvNtcCcmOWojBAvoI544O FLeyAkvUyYirHPjN6jatj OIPL2cZgzplSR+PHRkIHN 0eWxlPSdwYWRk jV2xUSNmU6c7NqHaFcZ8S YlwM7BctyV7PSLyxJZiKZ TkkZFUwL2ejlvyy1awncm gIzAwMDAwMDt0 APf9BXZgaIfdCiDvBMS7O mF4BVZ8jHZhmM5yuSalks djcE8gKbh+RklOOjwvdGQ +GHMaBXS9rJsc EHiiSPJhfD7gZTDqE8y7E oVaYyK6LJglQ8SdlhR1DG LksWYhXOAnvYMNsM4aqyy lq2nomwiyWwAe SKJtCKt7CQj0GIQxgJuqZ pXcRTZ9QgM0TWH8bSCacZ 4aoLwgenwqqJ7nRqd+TVJ OOjwvdGQ+PHRk NDE3lCueJRdmMEZnzU1lB CVzA6w5YbZgDfC7UHdpZ1 WkqrR2CTRrcHUyQRMghYA VhL9kqcbos7zr dsygPjJySNMgOWb3KRk5L OCuzBrcNkAtNHM9KjB2LW J8sZLpiO2aoAfibsdvkJ2 wOyc+IRC1WQC4 CB28GO06J3AoUcdqqMNok +PHRhYmxlIHdpZHRoPS maOMAtLlHyeZlmNY0jRp0 yZGVyLWNvbGxh cHNlOiBj (more content not included)... Normal [facility] Auto Diffon 08-09-2022 Basophils/100 WBC (Bld) 0.5 % Normal 0.0-2.0 [facility] Comment on above: Order Comment: Order Added by Discern Expert. Performed By: #### 2 [id number], [id number], [id number], [id number], [id number], [id number], [id number] ####[facility] [address] [place] [address] Basophils/Leukocytes Auto (Bld) [Pure # fraction] 0.1 E9/L Normal 0.0-0.2 [facility] Comment on above: Order Comment: Order Added by Discern Expert. Performed By: #### 2 [id number], [id number], [id number], 6668113, 98625494, [id number], [id number] ####[facility] [address] [place] [address] Eosinophils/100 WBC (Bld) 2.7 % Normal 0.0-8.0 [facility] Comment on above: Order Comment: Order Added by Discern Expert. Performed By: #### 2 [id number], [id number], [id number], 4276795, 37915879, [id number], [id number] ####[facility] [address] [place] [address] Eosinophils/Leukocytes Auto (Bld) [Pure # fraction] 0.4 E9/L Normal 0.0-0.5 [facility] Comment on above: Order Comment: Order Added by Discern Expert. Performed By: #### 2 [id number], 3434538, 87633396, 1697386, 84064069, 53289397, [id number] ####[facility] [address] [place] [address] Lymphocytes/100 WBC (Bld) 12.8 % Low 14.0-50.0 [facility] Comment on above: Order Comment: Order Added by Discern Expert. Performed By: #### 2 654971, 3647523, 93701419, 7544665, 71550396, 13589259, [id number] ####[facility] [address] [place] [address] Lymphocytes/Leukocytes Auto (Bld) [Pure # fraction] 2.1 E9/L Normal 1.0-4.0 [facility] Comment on above: Order Comment: Order Added by [employer] Expert. Performed By: #### 2 255850, 7663696, 47927002, 8627456, 38618594, 86827894, [id number] ####[facility] [address] [place] [address] Monocytes/100 WBC (Bld) 6.4 % Normal 4.0-14.0 [facility] Comment on above: Order Comment: Order Added by [employer] Expert. Performed By: #### 2 179173, 0217876, 21936399, 8536491, 15098788, 77948414, 82349395 ####[facility] [address] [place] [address] Monocytes/Leukocytes Auto (Bld) [Pure # fraction] 1.0 E9/L Normal 0.2-1.0 [facility] Comment on above: Order Comment: Order Added by [employer] Expert. Performed By: #### 2 865420, 8243281, 78111688, 7694915, 45662331, 41673389, [id number] ####[place] [id number] [place] [address] Neutrophils/100 WBC (Bld) 77.6 % High 36.0-75.0 [facility] Comment on above: Order Comment: Order Added by Discern Expert. Performed By: #### 2 133722, 4332137, 58010114, 5624620, 08535161, 18148147, 46598893 ####[facility] [address] [place] [address] Neutrophils/Leukocytes Auto (Bld) [Pure # fraction] 12.6 E9/L High 2.0-7.5 [facility] Comment on above: Order Comment: Order Added by Discern Expert. Performed By: #### 2 269402, 5730272, 06100799, 4171523, 32086898, 22117085, 14595469 ####[facility] [address] [place] [address] BMPon 08-09-2022 Creatinine [Mass/Vol] 1.1 mg/dL Normal 0.5-1.3 [facility] Comment on above: Performed By: #### 2 867518, 1281804, 05170517, 7775013, 02387696, 50282253, 63516458 ####[facility] [address] [place] [address] Urea nitrogen [Mass/Vol] 18 mg/dL Normal 5-21 [facility] Comment on above: Performed By: #### 2 943909, 6258321, 32824799, 6293360, 91961293, 25859717, 40185928 ####[facility] [address] [place] [address] Urea nitrogen/Creatinine [Mass ratio] 16 No Units Normal 10-20 [facility] Comment on above: Performed By: #### 2 402396, 3813035, 12174436, 7739820, 22943379, 74028329, 60442248 ####[facility] [address] [place] [address] Anion gap [Moles/Vol] 13 mmol/L Normal 6-16 [facility] Comment on above: Performed By: #### 2 820407, 4962293, 83100489, 4432250, 42706630, 53068009, 41702178 ####[facility] [address] [place] [address] Calcium [Mass/Vol] 8.8 mg/dL Low 8.9-11.1 [facility] Comment on above: Performed By: #### 2 199796, 1292082, 40190160, 5403415, 00474886, 54734840, 90968613 ####[facility] [address] [place] [address] Chloride [Moles/Vol] 101 mmol/L Normal 101-111 [facility] Comment on above: Performed By: #### 2 090100, 7419903, 54503425, 3047699, 04644947, 02488948, 13969223 ####[facility] [address] [place] [address] CO2 [Moles/Vol] 27 mmol/L Normal 21-31 [facility] Comment on above: Performed By: #### 2 609276, 8003248, 47105836, 8516083, 32373178, 40984027, 08099599 ####[facility] [address] [place] [address] Glucose [Mass/Vol] 121 mg/dL Normal 55-199 [facility] Comment on above: Result Comment: If t his glucose result represents a fasting glucose, interpretation should refer to the following reference range: 55-99 mg/dL Performed By: #### 2 218528, 0219381, 16386584, 3081373, 29114068, 18345411, 19858924 ####[facility] [address] [place] [address] Potassium [Moles/Vol] 3.9 mmol/L Normal 3.5-5.3 [facility] Comment on above: Performed By: #### 2 731192, 9398157, 14737557, 3954868, 76553931, 77049052, 82218249 ####[facility] [address] [place] [address] Sodium [Moles/Vol] 137 mmol/L Normal 135-145 [facility] Comment on above: Performed By: #### 2 237023, 8635255, 94609176, 7243094, 66297103, 83254614, 23729345 ####[facility] [address] [place] [address] BNPon 08-09-2022 Int Ctr BNP Pass Normal [facility] Comment on above: Performed By: #### 2 629625, 6638778, 02570562, 7479530, 02276219, 06386846, 08476485 ####[facility] [address] [place] [address] Natriuretic peptide B (Bld) [Mass/Vol] 19 pg/mL Normal 5-80 [facility] Comment on above: Performed By: #### 2 160617, 9541028, 80824258, 5290540, 87689234, 05160555, 00495642 ####[facility] [address] [place] [address] Blood Gas Art, with Lytes, G alex, [place] 08-09-2022 a/A Ratio Art 75.90 % Normal >=0.80 [facility] Comment on above: Performed By: #### 4 [id number] ####[facility] [address] [place] [address] AaDO2 Art 21.9 mmHg High 5.0-15.0 [facility] Comment on above: Performed By: #### 4 [id number] ####[facility] [address] [place] [address] Allens Test Not Applicable Normal [facility] Comment on above: Performed By: #### 4 [id number] ####[facility] [address] [place] [address] Base Excess Arterial 3.1 mmol/L Normal >=2.8 [facility] Comment on above: Performed By: #### 4 39281760 ####[facility] [address] [place] [address] cCa2+ Art 4.86 mg/dL Normal 4.40-5.30 [facility] Comment on above: Performed By: #### 4 83247035 ####[facility] [address] [place] [address] cCl- Art 105.0 mmol/L Normal 101.0-111.0 [facility] Comment on above: Performed By: #### 4 36692756 ####[facility] [address] [place] [address] cGlu Art 117 mg/dL High 55-99 [facility] Comment on above: Performed By: #### 4 43268499 ####[place] [address] [place] [address] cK+ Art 4.0 mmol/L Normal 3.5-5.3 [facility] Comment on above: Performed By: #### 4 82459402 ####[place] [address] [place] [address] cLac Art 1.4 mmol/L Normal .5-2.2 [facility] Comment on above: Performed By: #### 4 24398534 ####[facility] [address] [place] [address] preventative maintenance technician+ Art 142.0 mmol/L Normal 135.0-145.0 [facility] Comment on above: Performed By: #### 4 00485999 ####[facility] [address] [place] [address] Drawn by RLG Invalid Interpretation Code [facility] Comment on above: Performed By: #### 4 [id number] ####[place] [address] [place] [address] FCOHb Art 1.0 % Low 1.5-4.9 [facility] Comment on above: Result Comment: Refe rence range Nonsmoker <1.5% Smoker <5.0% Heavy Smoker <9.0% Performed By: #### 4 98348063 ####[facility] [address] [place] [address] FIO2 BG 21 Invalid Interpretation Code [facility] Comment on above: Performed By: #### 4 19571103 ####[place] [address] [place] [address] FMetHb Art 0.5 % Normal 0.0-1.9 [facility] Comment on above: Performed By: #### 4 96155061 ####[place] [address] [place] [address] FO2Hb Art 92.6 % Normal 92.0-100.0 [facility] Comment on above: Performed By: #### 4 21686333 ####[address] [address] HCO3 (Bld) [Moles/Vol] 27.1 mmol/L High 22.0-26.0 [facility] Comment on above: Performed By: #### 4 [id number] ####[address] [address] Hemoglobin (Bld) [Mass/Vol] 12.5 g/dL Normal 12.0-16.0 [facility] Comment on above: Performed By: #### 4 95734983 ####[address] [address] Oxygen saturation in Blood 94.1 % Low 95.0-100.0 [facility] Comment on above: Performed By: #### 4 93678727 ####[place] [address] [place] [address] P CO2 Arterial 48.9 mmHg High 35.0-45.0 [facility] Comment on above: Performed By: #### 4 63553151 ####[place] [address] [place] [address] P O2 Arterial 68.8 mmHg Low 80.0-100.0 [facility] Comment on above: Performed By: #### 4 [id number] ####[address] [place] [address] pH Arterial 7.383 Normal 7.350-7.450 [facility] Comment on above: Performed By: #### 4 39524610 ####[place] [address] Sample Site R Brachial Normal [facility] Comment on above: Performed By: #### 4 39550546 ####[place] [address] Sample Type Arterial Draw Normal [facility] Comment on above: Performed By: #### 4 90470461 ####[place] [address] CBC w/ Auto Diffon 3 Erythrocyte distribution width (RBC) [Ratio] 15.4 % High 10.9-14.2 [facility] Comment on above: Performed By: #### 2 729406, 6388085, 46709583, 6667682, 09355729, 14397190, 69421272 ####[facility] [address] [place], [place] [address] Hematocrit (Bld) [Volume fraction] 36.9 % Normal 34.0-46.0 [facility] Comment on above: Performed By: #### 2 547735, 7406739, 66736902, 8166734, 80327939, 69006747, 43143055 ####[address] [address] Hemoglobin (Bld) [Mass/Vol] 11.8 g/dL Low 12.0-16.0 [facility] Comment on above: Performed By: #### 2 507703, 4570329, 73477709, 7383480, 54780831, 94511554, 02736948 ####[facility] [address] [place] [address] MCH (RBC) [Entitic mass] 28.0 pg Normal 27.0-34.0 [facility] Comment on above: Performed By: #### 2 702429, 6565175, 99217775, 3567477, 27357714, 58589153, 37755630 ####[facility] [address] [place] [address] MCHC (RBC) [Mass/Vol] 32.0 g/dL Normal 31.4-36.0 [facility] Comment on above: Performed By: #### 2 977004, 9713357, 59883419, 8573074, 30559557, 16744293, 69637583 ####[facility] [address] [place] [address] MCV (RBC) [Entitic vol] 87.6 fL Normal 80.0-100.0 [facility] Comment on above: Performed By: #### 2 654519, 7480676, 80019269, 9168412, 53211211, 50903528, 20863697 ####[address] [address] Platelet mean volume (Bld) [Entitic vol] 8.4 fL Normal 6.4-10.8 [facility] Comment on above: Performed By: #### 2 785865, 1181544, 84141747, 1182082, 84383923, 81352935, 70719397 ####[address] [address] Platelets (Bld) [#/Vol] 238.0 E9/L Normal 150.0-500.0 [facility] Comment on above: Performed By: #### 2 823028, 6517015, 33182292, 6266305, 40660490, 22202286, 26719020 ####[address] [address] RBC (Bld) [#/Vol] 4.2 E12/L Low 4.3-5.9 [facility] Comment on above: Performed By: #### 2 678591, 8798365, 90778721, 2609312, 97505724, 77151700, 97583745 ####[address] [place] [address] WBC corrected for nucl RBC Auto (Bld) [#/Vol] 16.3 E9/L High 4.0-11.0 [facility] Comment on above: Result Comment: Franny chaudhry reviewed by LW. Performed By: #### 2 885048, 1054372, 71815848, 3094154, 70564472, 65381986, 18124190 ####[facility] [address] [place] [address] CHEMISTRYOrdered By: SYSTEM SYSTEM on 08-09-2022 Troponin [...] 50 mL/min/1.73 m2 Low >=59mL/min/1 .73 m2 [facility] Chem S Glucose [Mass/Vol] 121 mg/dL Normal 55 - 199 mg/dL [facility] Remisol Potassium [Moles/Vol] 3.9 mmol/L Normal 3.5 - 5.3 mmol/L FT Remisol Sodium [Moles/Vol] 137 mmol/L Normal 135 - 145 mmol/L FT Remisol Troponin I.cardiac [Mass/Vol] 4.00 pg/mL Low 10.10 - 27.10 pg/mL [facility] Remisol Urea nitrogen [Mass/Vol] 18 mg/dL Normal 5 - 21 mg/dL [facility] Remisol Urea nitrogen/Creatinine [Mass ratio] 16 mg/mg Normal 10 - 20 [facility] Remisol CHEMISTRYOrdered By: Evelyn Mercado tter on 08-09-2022 Natriuretic peptide B (Bld) [Mass/Vol] 19 pg/mL Normal 5 - 80 pg/mL [facility] HemeManSS COAGULATIONOrdered By: Sagar Castorena on 08-09-2022 aPTT Coag (PPP) [Time] 31.4 s Normal 25.1 - 36.5 second(s) [facility] Auto Coag INR Coag (PPP) [Relative time] 0.9 {INR} Invalid Interpretation Code [facility] Auto Coag PT Coag (PPP) [Time] 10.3 s Normal 9.4 - 1 2.5 second(s) [facility] Auto Coag CTA Cheston 08-09-2022 CTA Chest [...] Contrast amount in ml's: 73 Normal [facility] Discharge Instructionson Discharge Instructions [id number]# [id number] Normal [facility] ED Clinical Summaryon 2022 ED Clinical Summary [place] [id number] ED Clinical Summary Person Information Name: VIVIAN VANN Vika/[facility] Age: 62 Years : 1960 Sex: Female Language: Filipino PCP: Екатерина Robert MD Marital Status: Visit [...] 08/09/2022 18:01:49 08/09/2022 18:01:49 08/09/2022 18:01:49 AD[address]: [address] [id number] PHYS DOC NOTES: MEDICAL INFORMATION: Prescriptions Given: [facility], [address], [place] [id number], [phone] brompheniramine/dextr omethorphan/PSE (Bromfed DM oral syrup) 5 [...] Follow up: With: Address: When: Екатерина Robert [address] [place] [address], [facility] [place] [id number] [facility] (1) In 3 days 08/12/2022 Comments: Call the office of your primary care doctor to arrange for follow-up within the above-stated timeframe. Follow-up with your primary care doctor about this ED visit. You should review your labs, imaging, and diagnoses from this ED visit with your primary care physician. If y (more content not included)... Normal [facility] ED Note-Physicianon 08-10-19 ED Note-Physician Basic [...] that she has had 2 admissions to [facility] over the last few weeks for pneumonia/COPD exacerbation. Patient is currently on amoxicillin at home, feels that her symptoms are not improving but are in fact worsening. Patient endorses fevers and chills, myalgias. Patient reports her symptoms had not improved much on her last discharge from [facility], and worsening since that time. Patient is [...] and Complexity of Problems Differential Diagnosis: [] [facility] Data External documents reviewed: [] My [...] co (more content not included)... Normal [facility] Comment on above: Result Comment: Elec tronically [...] these instructions at home: Medicines ? Take owpp-aqd-bzeihjj and prescription medicines (inhaled or pills) only [...] e (more content not included)... Normal [facility] ED Patient Summaryon 023 ED Patient Summary [address] [address] Patient Discharge Instructions Person Information Name: VIVIAN VANN Age: 62 Years Arrival Date: 08/09/2022 13:09:07 Discharge Diagnosis: COPD exacerbation Primary Care Physician: Екатерина Robert MD Provider Information Primary Provider: Arsenio Martin DO [employer] Chair:Clinton Lucero PA-C The exam and treatment you received in the Emergency Department were for an urgent problem and are not intended as complete care. It is important that you follow up with a doctor, nurse practitioner, or physician?s assistant program director for ongoing care. If your symptoms [...] Follow-up Instructions: With: Address: When: Екатерина Robert [address] [place] [address], [place] [address] Business (1) In 3 days [...] opioids can be used to help relieve snmrdgpr-ny-qpgoua pain and are often prescribed following a [...] Safely disp (more content not included)... Normal [facility] EMS Documentationon 08-10-19 EMS Documentation Please click on link to see report [id number] CiX5+prnDQolQUJDcGRmI KQlWsY7ELggPlNzKC9ibh 9STYrMX6JxAOTqDZh7Bh0 I KYbvSEk4QVFoMF2GW5ibI Tc5RrU8Fn2WcW1eISUtlc VnTXJBL56xNycpXkXuWGx lKXBbVgv2ZsOL Uc0eSCKpYMJtYLZzMPEjF CAgICAgICAgICAgICAgIC AgICAgICAgICAgICAgICA gICAgICAgICAg ICAgICAgICAgICAgICAgI CAgICAgDQplbmRvYmoNCg 8FpDNqRy8OWnMoAlXYJsE wMDAwMDAwMzIg CKLkOFAimz0EGIHkLBNiV JI4GNImJQXhZCGtBUftOC GdNWHrNAz6IXLbRNCoTB5 NCjAwMDAwMDE3 PNRpKJZxGOWhsn7JLMTuV DAwMTkzNCAwMDAwMCBuDQ icXASxMLFiTMi5KQPkHVC sLC9RPzFlEHKb NGFnHzCgMHHhXWEils4QI DAwMDAwMjMxNSAwMDAwMC TlMIwiREUfEAYsUdf2LEO aPHQjNQ1EOoDg BFCyCRP8ZWzaIZWvEWUbg q7XBOEaKKWyEhhlCUZtLJ AwMCBuDQowMDAwMDAzMDY fBLPqNPWtPW0X ErQhLZFtFSM0DGMkWOAtL LSzvn1GSQMkPWXjCbQuIe AwMDAwMCBuDQowMDAwMDA lTCR6IWYtWJWv AE7DZjFjUOAnAXKwLEYnR SDyXFQzwx5TPOWkAGXkIH A3EoApFUEjTPNgHGbkJDY dRBN3ZrG7HHFu COMuUU6WLhOwUVOkXKP2A HJqQMDeAPAzdl8ZSWBtCP IyMND4TYWxRYJhLEVvUDo jODCwKNJ3EAG4 QAJnESVvLT4CGoJdMBAsE HX9MBsjOYAyFDPnwv1WXY AwMDAwOTMwMCAwMDAwMCB uDQowMDAwMDQ5 THhqBKZiDLPyWU5AAjHmK ORxBKK4BHHgDPYiCHWhyp 7SiRUgpNushc5PWQtTJ0z XHEc0UTSGMRB4 OdA7A7O9PmY2YIqMNKxuJ PC3NGXCMlT5RBF+CjxGRj VqP8ZIPXWMPXZpWbqiEWT IFKR9XFtkKPr5 KTJsLJ9gCh0BwqA2DTE7S SnpJKcrZj6pqRGxAmSaHS VJD3ChxtTbCDiQL6XfzKN dJSGsJ7RSDNZ6 Lx82FhwelGkFGDR2KRMCQ GblBA7BIsxATjAaOOqvAt 71N4BBx9M8ZlAyN6ZOxEe CdlFBZPuuM5kD pPG8o4zqxDrMxPCRrSrpA GdJcndPalFSQUlqUHNXaE 37anfJE7BmPHo7J3EFKe4 LGTzgNhHquW4G kJpeVXR7bR7oIYZDGJwKO ojuAG7LCYYRATz4SXi+Pi AgICAgICAgICAgICAgICA gICAgICAgICAg ICAgICAgICAgICAgICAgI CAgICAgICAgICAgICAgIC AgICAgICAgICAgICAgICA gICAgICAgICAg ICAgICAgICAgICAgICAgI CAgICAgICAgICAgICAgIC AgICAgICAgICAgICAgICA gICAgICAgICAg ICAgICAgICAgICAgICAgI CAgICAgICAgICAgICAgIC AgICAgICAgICAgICAgICA gICAgICAgICAg ICAgICAgICAgICAgICAgI CAgICAgICAgICAgICAgIC AgICAgICAgICAgICAgICA gICAgICAgICAg ICAgICAgICAgICAgICAgI CAgICAgICAgICAgICAgIC AgICAgICAgICAgICAgICA gICAgICAgICAg ICAgICAgICAgICAgICAgI CAgICAgICAgICAgICAgIC AgICAgICAgICAgICAgICA gICAgICAgICAg ICAgICAgICAgICAgICAgI CAgICAgICAgICAgICAgIC AgICAgICAgICAgICAgICA gICAgICAgICAg YN6Ct3FdyvX8ymHbJWshI XxoVJOMFb6YRGsfGpNaSY 4ftq2BMXhRW62ryVOnDWW hIDIxIDAgUgov Z7KcvtZdeCyyzeQuSaEpK OQEXy7WoHIZFAkeQ3Y0aC tgWHVsSEyaJOFFGd6RQWh dUY7jRDLsHYYg Qh4kPMhoFOWeOIUyUmNjT VQSLq0YzCQrWV5KHSRibM 9nCj4+DQplbmRvYmoNCg0 KMjQgMCBvYmoN Wdq0Nb7FbRm6FHRaG5QbH VYwKWAlg2TaHz9JJI2kzZ csNOS8Ft4RBUc8Cc0+DQp wlJZfQJ2EIjmd B9ElPMKlBOVqXUNxPIfEc XCgAIUpQLYQVIyLgXHaDQ jzpTYDMsAQZzMCEmJQzMC bEiJ3LEaIU6Z2 MIfHSpJhs1O9UKcXBVARQ dLyFKiDrNlO5rOCnSlMtk R52PS7pTzBOJYsQPVY9UO ztQxB9VeKWl6F 4I1XQY9ev6PhUNBfBSkyl wFsNjoCDa5LEmQsDLJmOb eWVii2Qw1Da669LT55xvN bNDIgMCBSXQov OGXiuAYHw8qoKmBeSHH0B VVvVnocRZkjHNOvOL85YG XmBWImYozrNnSpg9DwS3T hDDi2Wg9ME7Iy KAG6FPq4Ze4RMKYwJbIjM cSfNSHCOo3OHh8GW9O6uK VuS5MaW7FJKs8NTsLqWV5 vyu4ELAmaGlYw RB6fvr8ISNqYX3SYq0tkH tQnDRJ0XYVvOmwbFIyoGa tdqNMaFW5CcRJ7BGAwJ22 mAEhbWMLlQ1Il KGh5Jj7VFPLbpWSzGVHnP SrRM9fRAaemW9RsOHgQE6 aiCxD4LPEjNNMvAza+Pgo +IadxT4AdxDgu BUFiYs9cuGflIXtfOPWxA N1fzvGxpAg+Pb7Qw7CkXW LxNOi0yNQO7IJx8ZEmHCU uXSQ0TUBcmkVZ QZuc6AoPoVUeYeXqtHRlM 5hbWFPi77dXLXJgOeeHg7 dlRnIb9NvSPG+NV5GCgiA kQiDytb7BASck yaQtpRDiRM9SLiFjST0tc s4OMOhvSgIsRY3hqe9HOU sUR6EUBI4Da1HxLPpSW8O ANNICM2aGKVHH W2dHINAMF7gRPAGEG89EO AYSR3TMHVWrnSRYW6VzNT AXMx8YEyFxXM1rqr2ODZw cETOnKL7nrr1B ZZuOA3JGQI6Fb1HoSMkPS 8BuJXRBEw1MBfFgUH6yef 3EYIlgMNIuSY5rri1WZIr CV3BDTH2Mv4Pq CSvMM2TWFUTEE9dFFSOKM 5pWIZQSQ6kPAPXMH33BIZ WLJ6WSMKWyoUHWI1MeCEX FTq6TRpRsYQ0a li8FQSktEEJuUR5qtx5JG MkPX8Ihx5UJr094CJ4RAo uVEO8lU645etrnua9zd3R TLUJvbGRNVAov APRuQ0GdLZVxlPPjdtGpQ UokPSPlCAWmSj2UioHfDC luZyAvSWRlbnRpdHktSAo zB1PdiNquUVQs GPqlTGECM6FlGN9qQ79iN LBwCiWeHRZBJ0X3zPVtE3 KghpQDVn7NNrVrMU1mdn0 HVLeiDWFtEG6q mv0AVJzJD4Qdb2WYd356Z G3TBmgHKD1tI936wvdugm 3pw4SSBYVjwNRAPRibK8e AM6gtlZIfLT6i svF0IMdjA3YbPNTapcubV YjfZA99xIO0BOwmMuIihR M5vublSQMsp2LuBPwaY2K wcGxlbWVudCAw Cj4+Uj9BODSQm3eFYB9pv EIlUGEcnbAkeHqEE4GQPZ SBE5GqjsUDCBIucyrhtZ0 yIDMyIDAgUgov C2AvsCrgBSSbJ6jIXv2er KO2vVOnDx9FpQVhHP6Qa0 59Fo6HWXspRWciNRWhSC1 rGKp9Rm7MMk3J PsVrRV0tee1AJCywQlNdQ D7btv4DCOvAA6NtK9PclK K4XtKhIAL0EAVUY1FgaIg arFihyQF9NNVu Cjo9CIkSE5Iiw0AyxkWoG vKeOsX9Sxh8Gx4DsSOlus LrURwkYu6mjVAZt9xtHs0 kYTZaEEs3VTKv JEpcEK24DSmhUiF6VICrE tVzACOyJFBeWN4sMYU5QC 1CA3YlamOFbQejNxU6RHZ wZBETQ8XrzcVD ER6iPL5CBmrDNF5oR633e ioeyc6zl8PUQMCvcPESAL dkNUPsuLurUE6fhKMeFUq dS2EwzTVaWvXv RVqgEVwHI7J5mYJpP3Mux kEFAKMtdkbciB8pTs0+DQ smgxNeYteWJp4KEaYrZVS mBxqGAsn5Vn5Z fZq0MHVaL3FvGEDhCDPeh 1ZcAp5FMG3hwSbbZlI6Ye 4+NDqblULyXH4GMarhQBD FbfJlPDb8P4uM NzBVECoRKPjfyqAnM2YeG 5o6dXwXaPvn8V4gwlIZej idL0hnk28V6F7+yHoy0YD YdbANs7J1t6x2 jBK3ZOhsAQu3LyefCu6f4 BxLoridpwBDY/uRlSXnyV yGXdIMtNAQ6rqtILOjNOy va9u6xWnR05rd vzCADVywquIa+mt67xk7p kLjjCvf2Zb5VR0TmHQca0 hQXnRHexTnnke4Tuhgl1Q CQGpNn6CrEZKy /0BvYi436aV2yL6wtnEWO Hw0hIZCJvPGcFtx4a9lSc TxEG8PkS2fDdWA9i1KnvK Vl8v06bEQH5Ns RvIayawgcodHIYmkChnJi xckc/SeSE9ts4CbVFH+y+ tBdHYcVdjl4UaqAt4NvkP M28cRWKfC22/A eU3WAi3htudlBh1UAD8yr 3RyZWFtDQplbmRvYmoNCg 7ZMtKqYEAzQjkCLtz1Ql5 YRDAiMk1vcBVx PebLRQvGK3LqbUYlKYJNU XqPN48HZe3VCESjNY9qSR 29Xc2kqQHhSfB1WHZiAo0 EG9RkE88kgM0o RX7NWVPjqQo4eW9RHq3Aa MP1xUReIP5BaPGbKJfrHO 0Fsqdbi9JyXVG8 (more content not included)... Normal [facility] FT Blood GasesOrdered By: Ra raciel Marx on 08-09-2022 a/A Ratio Art 75.90 % Normal >=0.80% [facility] Resp Auto SS AaDO2 Art 21.9 mm[Hg] High 5.0 - 15.0 mmHg FT Resp Auto SS Allens Test Not Applicable (08/09/22 2:03 PM) Normal [facility] Resp Auto SS Base Excess Arterial 3.1 mmol/L Normal >=2.8mmol/L FTM C Resp Auto SS cCa2+ Art 4.86 mg/dL Normal 4.40 - 5.30 mg/dL FT Resp Auto SS cCl- Art 105.0 mmol/L Normal 101.0 - 111.0 mmol/L FT Resp Auto SS cGlu Art 117 mg/dL High 55 - 99 mg/dL FT Resp Auto SS cK+ Art 4.0 mmol/L Normal 3.5 - 5.3 mmol/L [facility] Resp Auto SS cLac Art 1.4 mmol/L Normal 0.5 - 2.2 mmol/L [facility] Resp Auto SS preventative maintenance technician+ Art 142.0 mmol/L Normal 135.0 - 145.0 mmol/L [facility] Resp Auto SS Drawn by RLG Invalid Interpretation Code [facility] Resp Auto SS FCOHb Art 1.0 % Low 1.5 - 4.9 % [facility] Resp Auto SS FIO2 BG 21 Invalid Interpretation Code [facility] Resp Auto SS FMetHb Art 0.5 % Normal 0.0 - 1.9 % [facility] Resp Auto SS FO2Hb Art 92.6 % Normal 92.0 - 100.0 % MC Resp Auto SS HCO3 (Bld) [Moles/Vol] 27.1 mmol/L High 22.0 - 26.0 mmol/L [facility] Resp Auto SS Hemoglobin (Bld) [Mass/Vol] 12.5 g/dL Normal 12.0 - 16.0 gm/dL [facility] Resp Auto SS P CO2 Arterial 48.9 mm[Hg] High 35.0 - 45.0 mmHg [facility] Resp Auto SS P O2 Arterial 68.8 mm[Hg] Low 80.0 - 100.0 mmHg [facility] Resp Auto SS pH Arterial 7.383 Normal 7.350 - 7.450 [facility] Resp Auto SS Sample Site R Brachial (08/09/22 2:03 PM) Normal [facility] Resp Auto SS Sample Type Arterial Draw (08/09/22 2:03 PM) Normal [facility] Resp Auto SS HEMATOLOGYOrdered By: SYSTEM SYSTEM [...] 16.3 E9/L High 4.0 - 11.0 E9/L [facility] HemeAutoSS Comment on above: Result Comment: Slid e reviewed by LW. PT & PTTon 08-09-2022 aPTT Coag (PPP) [Time] 31.4 second(s) Normal 25.1-36.5 [facility] Comment on above: Result Comment: Para meter 15 days - 4 weeks 1 - 5 months 6 - 11 months 1 - 5 years 6 - 10 years 11 - 17 years PTT Mean: 35.4 (27.6-45.6) Mean: 33.5 (24.8-40.7) Mean: 32.4 (25.1-40.7) Mean: 31.6 (24.0-39.2) Mean: 31.6 (26.9-38.7) Mean: 31.0 (24.6-38.4) Pediatric Reference ranges were obtained from a study by Hrais Garcia et al. prepared from 1437 samples obtained at 7 different centers using the same coagulation reagent and instrumentation as [facility]. Currently there are no coagulation studies available worldwide for children to 14 days, and no normal ranges. Heparin therapeutic range (represented by Anti-Factor Xa activity of 0.2 - 0.4 U/mL) corresponds to PTT of 56.6 - 109.0 sec. Performed By: #### 2 [id number] ####[id number] [place] [address] INR Coag (PPP) [Relative time] 0.9 {INR} Invalid Interpretation Code [facility] Comment on above: Result Comment: INR results are specifically intended to assess patients stabilized on long-term Anticoagulation therapy suggested INR?s ?Less Intensive Anticoagulation? 2.0 ? 3.0 Conventional Range 3.0 ? 4.5 Performed By: #### 2 [id number], [id number] ####[facility] [id number] [place] [address] PT Coag (PPP) [Time] 10.3 second(s) Normal 9.4-12.5 [facility] Comment on above: Result Comment: 15 [...] the same coagulation reagent and instrumentation as [facility]. Currently there are no coagulation studies available worldwide for children to 14 days, and no normal ranges. Performed By: #### 2 [id number] ####[facility] [id number] [place] [address] Pre-Arrival Noteon Pre-Arrival Note Pre-Arrival Summary Name: , Current Date: 08/09/2022 13:09:29 EDT Gender: Female Date of : Age: 62 Pre-Arrival Type: EMS ETA: 08/09/2022 13:33:00 EDT Primary Care Physician: Presenting Problem: sob Pre-Arrival User: John Martin Referring Source: Location: DC Completion Date/Time: 08/09/2022 13:03:00 [facility] Emergency Department Pre-Hospital Report Form Vital Signs: Pre-Hospital Report: Treatment in Route: Response to Treatment: Misc. Issues: Normal [facility] Troponin 0 Hr.on 08-09-2022 Troponin I.cardiac [Mass/Vol] 4.00 pg/mL Low 10.10-27.10 [facility] Comment on above: Result Comment: The 95% CI (Confidence Interval) PPV (Positive Predictive Value) for myocardial infarction in females is 38 pg/mL, in males 51 pg/mL. The results should be used in conjunction with clinical conditions of myocardial infarction. (wiseri High Sensitivity Troponin I Instructions For Use, invino, December 2017) Performed By: #### 2 [id number], [id number], [id number], [id number], [id number], [id number], [id number] ####[facility] [address] [place] [address] Troponin 3 Hr.on 08-09-2022 Troponin I.cardiac [Mass/Vol] 7.00 pg/mL Low 10.10-27.10 [facility] Comment on above: Result Comment: The 95% CI (Confidence Interval) PPV (Positive Predictive Value) for myocardial infarction in females is 38 pg/mL, in males 51 pg/mL. The results should be used in conjunction with clinical conditions of myocardial infarction. (wiseri High Sensitivity Troponin I Instructions For Use, invino, December 2017) Performed By: #### 1 [id number] ####[id number] [place] [address] XR Chest Single Viewon 08-09 XR Chest [...] = na DAP = na Normal [facility] eGFRon 08-09-2022 GFR/1.73 sq M.predicted among blacks MDRD (S/P/Bld) [Vol rate/Area] mL/min/{1.73_m2} Normal >=59 [facility] Comment on above: Order Comment: Order added by Discern Expert. Result Comment: eGFR is race adjusted. AA=. Performed By: #### 2 [id number], [id number], [id number], [id number], [id number], [id number], [id number] ####[facility] [address] [place] [address] GFR/1.73 sq M.predicted among non-blacks MDRD (S/P/Bld) [Vol rate/Area] 50 mL/min/1.73 m2 Low >=59 [facility] Comment on above: Order Comment: Order added by Discern Expert. Result Comment: Lens Hardener valeria kidney disease could be indicated at eGFR's of less than 60 mL/min/1.73m2. Kidney failure is indicated at less than 15 mL/min/1.73m2. Performed By: #### 2 [id number], [id number], [id number], [id number], [id number], [id number], [id number] ####[facility] [address] [place] [address] CBC W MANUAL DIFFon 08-02-19 ATYPICAL LYMPH # Normal [facility] Comment on above: Performed By: #### Isabell PONCE ####[facility] [address] [place] [id number] Yañez ATYPICAL LYMPH % Normal [facility] Comment on above: Performed By: #### Isabell PONCE ####[facility] [address] [place] [id number]. Nahed Yañez BAND # 0.9 103/ul Critically high 0.0-0.3 The [facility] Comment on above: Performed By: #### C BCMAN ####[facility] [address] [place] [address]Dr. Nahed Yañez BAND % 5 % Normal 0-5 The [facility] Comment on above: Performed By: #### C BCMAN ####[facility] [address] [place] [address]Dr. Yiashley Yañez BASOM # 0.00 103/ul Normal 0.00-0.10 The [facility] Comment on above: Performed By: #### C BCISAIAH ####[facility] [address]uk[address] [place] [address]Dr. Nahed Yañez BASOM % 0.0 % Critically low 0.2-2.0 The [facility] Comment on above: Performed By: #### C BCISAIAH ####[facility] [address] [place] [address]Dr. Nahed Yañez BLAST # Normal The [facility] Comment on above: Performed By: #### C BCISAIAH ####[facility] [address] [place] [address]Dr. Yilan Yañez BLAST % Normal The [facility] Comment on above: Performed By: #### C BCISAIAH ####[facility] [address] [place] [address]Dr. Nahed Yañez CORRECTED WBC Normal 4.0-11.0 The [facility] Comment on above: Performed By: #### C BCMAN ####[facility] [address] [place] [address]Dr. Nahed Yañez EOS # 0.00 103/ul Normal 0.00-0.70 The [facility] Comment on above: Performed By: #### C BCMAN ####[facility] [address] [place] [address]Dr. Nahed Yañez EOS% 0.0 % Critically low 0.9-7.0 The [facility] Comment on above: Performed By: #### C BCISAIAH ####[facility] [address] [place], [place] [address]Wv. Nahed Yañez HCT 39.5 % Normal 36.0-48.0 The [facility] Comment on above: Performed By: #### C ROSARIO ####[facility] [address] [place] [phone]. Nahed Yañez HGB 13.0 g/dl Normal 12.0-16.0 The [facility] Comment on above: Performed By: #### C ROSARIO ####[facility] [address] [place] [phone]. Nahed Yañez LYMPHM # 1.72 103/ul Normal 1.20-3.80 The [facility] Comment on above: Performed By: #### C ROSARIO ####[facility] [address] [place] [phone]. Nahed Yañez LYMPHM% 10.0 % Critically low 20.5-60.0 The [facility] Comment on above: Performed By: #### Isabell PONCE ####[facility] [address] [place] [phone]. Nahed Yañez MCH 28.7 pg Normal 26.7-34.0 The [facility] Comment on above: Performed By: #### Isabell PONCE ####[facility] [address]voqsx[address] [place] [phone]. Nahed Yañez MCHC 32.9 g/dl Normal 29.9-35.2 The [facility] Comment on above: Performed By: #### C ROSARIO ####[facility] [address]pv[address] [place] [phone]. Nahed Yañez MCV 87.2 fL Normal 81.0-99.0 The [facility] Comment on above: Performed By: #### C ROSARIO ####[facility] [address]bmiivlrat[address] [place] [phone]. Nahed Yañez METAMYELOCYTE # Normal The [facility] Comment on above: Performed By: #### C ROSARIO ####[facility] [address]oglp[address] [place] [phone]. Nahed Yañez METAMYELOCYTE % Normal [facility] Comment on above: Performed By: #### C ROSARIO ####[facility] [address] [place], [place] [address]Ov. Nahed Yañez MONOM# 0.86 103/ul Critically high 0.30-0.80 [facility] Comment on above: Performed By: #### C ROSARIO ####[facility] [address] [place], [place] [address]Sm. Nahed Yañez MONOM% 5.0 % Normal 1.7-12.0 [facility] Comment on above: Performed By: #### C ROSARIO ####[facility] [address] [place], [place] [address]Lq. Nahed Yañez MPV 9.8 fL Normal 9.5-13.5 [facility] Comment on above: Performed By: #### C ROSARIO ####[facility] [address] [place] [phone]. Nahed Yañez MYELOCYTE # Normal The [facility] Comment on above: Performed By: #### C ROSARIO ####[facility] [address]xom[address] [place], [place] [address]Zj. Nahed Yañez MYELOCYTE % Normal The [facility] Comment on above: Performed By: #### C ROSARIO ####[facility] [address] [place], [place] [address]Vd. Nahed Yañez NRBC Normal The [facility] Comment on above: Performed By: #### C ROSARIO ####[facility] [address] [place] [phone]. Nahed Yañez PLT 388 103/ul Normal 150-450 The [facility] Comment on above: Performed By: #### C ROSARIO ####[facility] [address]geg[address]pa[address] [place] [phone]. Nahed Yañez RBC 4.53 106/ul Normal 4.20-5.40 The [facility] Comment on above: Performed By: #### C ROSARIO ####[facility] [address] [place] [phone]. Rosemarieashley Otilio RDW 14.4 % Normal 11.0-15.0 The [facility] Comment on above: Performed By: #### C BCMAN ####[facility] [address]ok[address] [place] [address]Dr. Nahed Yañez SEG # 13.76 103/ul Critically high 1.40-6.50 [facility] Comment on above: Performed By: #### C BCMAN ####[facility] Tonclpidxo[address] [place] [address]Dr. Nahed Yañez SEG % 80.0 % Critically high 43.0-75.0 [facility] Comment on above: Performed By: #### C ROSARIO ####[facility] [address]qnvyngipc[address] [place] [address]Dr. Nahed Yañez WBC 17.2 103/ul Critically high 4.0-11.0 [facility] Comment on above: Performed By: #### C ROSARIO ####[facility] [address]kw[address] [place] [address]Dr. Nahed Yañez MAGNESIUMon 08-01-2022 Magnesium [Mass/Vol] 2.0 mg/dL Normal 1.8-2.4 [facility] Comment on above: Performed By: #### MG COLE, CMP ####[facility] [address] [place] [address]DrShaun Rosemarieashley Yañez POINT OF CARE GLUCOSEon 07-13 Glucose [Mass/Vol] 267 mg/dL Critically high 74-106 [facility] Comment on above: Performed By: #### P OCGLUC ####[facility] Ctyjwpggmr[address] [place] [address]DrShaun Yañez PROF 14(COMP METB)on 023 Albumin [Mass/Vol] 3.4 g/dL Normal 3.4-5.0 [facility] Comment on above: Performed By: #### MG COLE, CMP ####[facility] Hrecvumafd[address] [place] [address]Dr. Nahed Yañez Albumin/Globulin [Mass ratio] 0.9 {ratio} Normal [facility] Comment on above: Performed By: #### MG COLE, CMP ####[facility] [address]uecr[address] [place] [phone]. Nahed Yañez ALP [Catalytic activity/Vol] 100 U/L Normal 46-116 [facility] Comment on above: Performed By: #### MG COLE, CMP ####[facility] [address]wlrsp[address] [place] [address]Dr. Nahed Yañez ALT [Catalytic activity/Vol] 19 U/L Normal 14-59 [facility] Comment on above: Performed By: #### MG COLE, CMP ####[facility] [address]pdzic[address] [place] [address]Dr. Nahed Yañez Anion gap [Moles/Vol] 12.7 mmol/L Normal [facility] Comment on above: Performed By: #### MG COLE, CMP ####[facility] F[address]vvtn[address] [place] [address]Dr. Nahed Yañez AST [Catalytic activity/Vol] 13 U/L Critically low 15-37 [facility] Comment on above: Performed By: #### MG COLE, CMP ####[facility] Dlupthmima[address] [place] [address]Dr. Nahed Yañez Bilirubin [Mass/Vol] 0.4 mg/dL Normal 0.2-1.0 [facility] Comment on above: Performed By: #### MG COLE, CMP ####[facility] [address]vmznfgq[address] [place] [address]Dr. Nahed Yañez Calcium [Mass/Vol] 9.5 mg/dL Normal 8.5-10.1 [facility] Comment on above: Performed By: #### MG COLE, CMP ####[facility] Otmcizejvs[address] [place] [address]Dr. Nahed Yañez Chloride [Moles/Vol] 100 mmol/L Normal 98-107 [facility] Comment on above: Performed By: #### MG COLE, CMP ####[facility] Grbubclifi[address] [place] [address]Dr. Rosemarieashley Yañez CO2 [Moles/Vol] 27.1 mmol/L Normal 21.0-32.0 [facility] Comment on above: Performed By: #### MG COLE, CMP ####[facility] Httxjpjwnz3[address] [place] [address]Dr. Nahed Yañez Creatinine [Mass/Vol] 1.16 mg/dL Critically high 0.55-1.02 [facility] Comment on above: Performed By: #### MG COLE, CMP ####[facility] E[address] [place], [place] [address]Dr. Nahed Yañez EGFR-AF CHILEAN 58 mL/min/1.73m2 Critically low >=60 [facility] Comment on above: Performed By: #### MG COLE, CMP ####[facility] [address] [place], [place] [address]Dr. Nahed Yañez EGFR-NON AF CHILEAN 47 mL/min/1.73m2 Critically low >=60 [facility] Comment on above: Performed By: #### MG COLE, CMP ####[facility] [address]rosbujf[address] [place], [place] [address]Dr. Nahed Yañez Globulin (S) [Mass/Vol] 3.6 g/dL Normal [facility] Comment on above: Performed By: #### MG COLE, CMP ####[facility] [address]ucutizuza[address] [place] [address]Dr. Rosemarieashley Yañez Glucose [Mass/Vol] 175 mg/dL Critically high 74-106 [facility] Comment on above: Performed By: #### MG COLE, CMP ####[facility] [address]hdmijgc[address] [place], [place] [address]Dr. Nahed Yañez Potassium [Moles/Vol] 3.8 mmol/L Normal 3.5-5.1 The [facility] Comment on above: Performed By: #### MG COLE, CMP ####[facility] [address]gbnrebahq6387 [place] [address]Dr. Nahed Yañez Protein [Mass/Vol] 7.0 g/dL Normal 6.4-8.2 The [facility] Comment on above: Performed By: #### MG COLE, CMP ####[facility] [address]vjqi[address] [place], [place] [address]Dr. Nahed Yañez Sodium [Moles/Vol] 136 mmol/L Normal 136-145 [facility] Comment on above: Performed By: #### MG COLE, CMP ####[facility] Nrg[address]kkwelp[address] [place], [place] [address]Dr. Nahed Yañez Urea nitrogen [Mass/Vol] 25.0 mg/dL Critically high 7.0-18.0 [facility] Comment on above: Performed By: #### MG COLE, CMP ####[facility] [address]xfemgzh[address] [place], [place] [address]Dr. Nahed Yañez Urea nitrogen/Creatinine [Mass ratio] 21.6 mg/mg Normal The [facility] Comment on above: Performed By: #### MG COLE, CMP ####[facility] [address]qljbsa[address] [place], [place] [address]Dr. Nahed Yañez THEOPHYLLINEon 08-01-2022 THEOPHYLLINE 17.1 ug/mL Normal 10.0-20.0 [facility] Comment on above: Performed By: #### MG COLE, CMP ####[facility] [address] [place], [place] [address]Dr. Nahed Yañez CBC AUTO DIFFon 07-31-2022 BASO # 0.0 103/ul Normal 0.0-0.1 [facility] Comment on above: Performed By: #### C BC ####[facility] [address]df[address] [place], [place] [address]Dr. Nahed Yañez Basophils/100 WBC (Bld) 0.2 % Normal 0.2-2.0 The [facility] Comment on above: Performed By: #### C BC ####[facility] [address]uf[address] [place], [place] [address]Dr. Nahed Yañez EO # 0.0 103/ul Normal 0.0-0.7 [facility] Comment on above: Performed By: #### C BC ####[facility] Cpfbupgbkn[address] [place], [place] [address]Dr. Nahed Yañez Eosinophils/100 WBC (Bld) 0.0 % Critically low 0.9-7.0 The [facility] Comment on above: Performed By: #### C BC ####[facility] [address]dfqcu[address] [place] [address]Dr. Nahed Yañez Erythrocyte distribution width (RBC) [Ratio] 14.2 % Normal 11.0-15.0 [facility] Comment on above: Performed By: #### C BC ####[facility] [address]eoknl[address] [place], [place] [address]Dr. Nahed Yañez Hematocrit (Bld) [Volume fraction] 36.0 % Normal 36.0-48.0 The [facility] Comment on above: Performed By: #### C BC ####[facility] Irsbifuiaj[address] [place], [place] [address]Dr. Nahed Yañez Hemoglobin (Bld) [Mass/Vol] 11.4 g/dL Critically low 12.0-16.0 [facility] Comment on above: Performed By: #### C BC ####[facility] [address]bpwleljh[address] [place], [place] [address]Dr. Nahed Yañez IG # 0.21 10e3/ul Critically high 0.00-0.03 [facility] Comment on above: Performed By: #### C BC ####[facility] [address]tdqac[address] [place], [place] [address]Dr. Nahed Yañez IG % 1.8 % Critically high 0.0-0.5 The [facility] Comment on above: Performed By: #### C BC ####[facility] Xsw[address]bshye[address] [place], [place] [address]Dr. Nahed Yañez LYMPH # 1.3 103/ul Normal 1.2-3.8 The [facility] Comment on above: Performed By: #### C BC ####[facility] Koncxqkwqd[address] [place], [place] [address]Dr. Nahed Yañez Lymphocytes/100 WBC (Bld) 11.2 % Critically low 20.5-60.0 The [facility] Comment on above: Performed By: #### C BC ####[facility] [address]ynpgce[address] [place], [place] [address]Dr. Nahed Otilio MANUAL DIFF REQ NO Normal [facility] Comment on above: Performed By: #### C BC ####[facility] [address]vhecmrodf8[address] [place] [address]Dr. Nahed Yañez MCH (RBC) [Entitic mass] 27.7 pg Normal 26.7-34.0 The [facility] Comment on above: Performed By: #### C BC ####[facility] Mkvddfuwdu5939 [place] [address]Dr. Nahed Yañez MCHC (RBC) [Mass/Vol] 31.7 g/dL Normal 29.9-35.2 The [facility] Comment on above: Performed By: #### C BC ####[facility] [address]qludl[address] [place] [address]Dr. Nahed Otilio MCV (RBC) [Entitic vol] 87.6 fL Normal 81.0-99.0 The [facility] Comment on above: Performed By: #### C BC ####[facility] X[address]jnrg[address] [place], [place] [address]Dr. Nahed Otilio MONO # 0.8 103/ul Normal 0.3-0.8 The [facility] Comment on above: Performed By: #### C BC ####[facility] [address]jswetzcy[address] [place], [place] [address]Dr. Rosemarieashley Yañez Monocytes/100 WBC (Bld) 7.0 % Normal 1.7-12.0 The [facility] Comment on above: Performed By: #### C BC ####[facility] Ghboskrz[address] [place], [place] [address]Dr. Rosemarieashley Otilio NEUT # 9.2 103/ul Critically high 1.4-6.5 The [facility] Comment on above: Performed By: #### C BC ####[facility] [address] [place], [place] [address]Dr. Rosemarieashley Yañez Neutrophils/100 WBC (Bld) 79.8 % Critically high 43.0-75.0 The [facility] Comment on above: Performed By: #### C BC ####[facility] [address] [place] [address]. Nahed Yañez Platelet mean volume (Bld) [Entitic vol] 9.8 fL Normal 9.5-13.5 [facility] Comment on above: Performed By: #### C BC ####[facility] Eyrtyxvita[address] [place] [address]Dr. Nahed Yañez PLT 317 103/ul Normal 150-450 The [facility] Comment on above: Performed By: #### C BC ####[facility] Uxntrscfug[address] [place] [address]Dr. Nahed Yañez RBC 4.11 106/ul Critically low 4.20-5.40 [facility] Comment on above: Performed By: #### C BC ####[facility] Sgsyswhawn3[address] [place] [address]Dr. Nahed Yañez WBC 11.5 103/ul Critically high 4.0-11.0 [facility] Comment on above: Performed By: #### C BC ####[facility] Oshthfijhj47[address] [place] [address]Dr. Nahed Yañez MAGNESIUMon 07-31-2022 Magnesium [Mass/Vol] 1.8 mg/dL Normal 1.8-2.4 [facility] Comment on above: Performed By: #### M JUDY Moore, [facility] ####[facility] Phzpjyfsxv49[address] [place] [address]Dr. Nahed Yañez POINT OF CARE GLUCOSEon 07-13 Glucose [Mass/Vol] 217 mg/dL Critically high 74-106 [facility] Comment on above: Performed By: #### P OCGLUC ####[facility] Ldqawmtwwy8546 [place] [address]Dr. Nahed Yañez Glucose [Mass/Vol] 169 mg/dL Critically high 74-106 [facility] Comment on above: Performed By: #### P OCGLUC ####[facility] Rsviesnsxz7582 [place] [address]Dr. Nahed Yañez Glucose [Mass/Vol] 297 mg/dL Critically high 74-106 [facility] Comment on above: Performed By: #### P OCGLUC ####[facility] Diewsceyug[address] [place] [address]Dr. Nahed Yañez Glucose [Mass/Vol] 233 mg/dL Critically high 74-106 [facility] Comment on above: Performed By: #### P OCGLUC ####[facility] Anuexhqpof24[address] [place] [address]Dr. Nahed Yañez PROF 14(COMP METB)on 023 Albumin [Mass/Vol] 3.0 g/dL Critically low 3.4-5.0 [facility] Comment on above: Performed By: #### JUDY Castro, CMP ####[facility] Tmfmgbufnz1036 [place] [address]Dr. Nahed Yañez Albumin/Globulin [Mass ratio] 0.8 {ratio} Normal [facility] Comment on above: Performed By: #### JUDY Castro, CMP ####[facility] [address]lnqqfssu[address] [place], [place] [address]Dr. Nahed Yañez ALP [Catalytic activity/Vol] 83 U/L Normal 46-116 [facility] Comment on above: Performed By: #### JUDY Castro, CMP ####[facility] Gzcakunpmi13[address] [place] [address]Dr. Nahed Yañez ALT [Catalytic activity/Vol] 21 U/L Normal 14-59 [facility] Comment on above: Performed By: #### JUDY Castro, CMP ####[facility] Acsqnqevol0177 [place] [address]Dr. Nahed Yañez Anion gap [Moles/Vol] 14.8 mmol/L Normal [facility] Comment on above: Performed By: #### JUDY Castro, CMP ####[facility] Dzpvaylpki[address] [place] [address]Dr. Nahed Yañez AST [Catalytic activity/Vol] 13 U/L Critically low 15-37 [facility] Comment on above: Performed By: #### JUDY Castro, CMP ####[facility] Vkuzqfmkvi1462 [place] [address]Dr. Nahed Yañez Bilirubin [Mass/Vol] 0.2 mg/dL Normal 0.2-1.0 [facility] Comment on above: Performed By: #### JUDY Castro CMP ####[facility] [address]oxyfhokoc[address] [place], [place] [address]Dr. Nahed Yañez Calcium [Mass/Vol] 9.2 mg/dL Normal 8.5-10.1 [facility] Comment on above: Performed By: #### JUDY Castro, CMP ####[facility] Vxoqvrtzim[address] [place], [place] [address]Dr. Nahed Yañez Chloride [Moles/Vol] 101 mmol/L Normal 98-107 [facility] Comment on above: Performed By: #### JUDY Castro CMP ####[facility] Ffxhsqhqbt8[address] [place], [place] [address]Dr. Nahed Yañez CO2 [Moles/Vol] 26.5 mmol/L Normal 21.0-32.0 [facility] Comment on above: Performed By: #### JUDY Castro, CMP ####[facility] Dcljawchlo[address] [place], [place] [address]Dr. Nahed Yañez Creatinine [Mass/Vol] 1.04 mg/dL Critically high 0.55-1.02 [facility] Comment on above: Performed By: #### JUDY Castro CMP ####[facility] [address]twfsshhym[address] [place], [place] [address]Dr. Nahed Yañez EGFR-AF CHILEAN >60 Normal >=60 [facility] Comment on above: Performed By: #### JUDY Castro CMP ####[facility] Z[address]axjtohq[address] [place], [place] [address]Dr. Nahed Yañez EGFR-NON AF CHILEAN 54 mL/min/1.73m2 Critically low >=60 [facility] Comment on above: Performed By: #### JUDY Castro CMP ####[facility] Btncbpotzb[address] [place], [place] [address]Dr. Nahed Yañez Globulin (S) [Mass/Vol] 3.6 g/dL Normal [facility] Comment on above: Performed By: #### JUDY Castro, CMP ####[facility] Kkqqnpjrqn5071 [place] [address]Dr. Nahed Yañez Glucose [Mass/Vol] 171 mg/dL Critically high 74-106 [facility] Comment on above: Performed By: #### JUDY Castro, CMP ####[facility] Diafnuszcv4422 [place] [address]Dr. Nahed Yañez Potassium [Moles/Vol] 3.3 mmol/L Critically low 3.5-5.1 [facility] Comment on above: Performed By: #### JUDY Castro CMP ####[facility] [address]id[address] [place] [address]Dr. Nahed Yañez Protein [Mass/Vol] 6.6 g/dL Normal 6.4-8.2 [facility] Comment on above: Performed By: #### JUDY Castro CMP ####[facility] Kxxoiqyyvp7[address] [place], [place] [address]Dr. Nahed Yañez Sodium [Moles/Vol] 139 mmol/L Normal 136-145 [facility] Comment on above: Performed By: #### JUDY Castro CMP ####[facility] Bpcnxkqsjs4[address] [place], [place] [address]Dr. Nahed Yañez Urea nitrogen [Mass/Vol] 23.0 mg/dL Critically high 7.0-18.0 [facility] Comment on above: Performed By: #### JUDY Castro CMP ####[facility] Kwrklmzoux6[address] [place], [place] [address]Dr. Nahed Yañez Urea nitrogen/Creatinine [Mass ratio] 22.1 mg/mg Normal [facility] Comment on above: Performed By: #### JUDY Castro, CMP ####[facility] Klorslxgpt177[address] [place], [place] [address]Dr. Nahed Yañez THEOPHYLLINEon 07-31-2022 THEOPHYLLINE 14.2 ug/mL Normal 10.0-20.0 [facility] Comment on above: Performed By: #### JUDY Castro, CMP ####[facility] Ghvthebsmb4203[address] [place], [place] [address]Dr. Nahed Yañez BLOOD CULTURE ID PANELon A. baumannii Not detected Normal NOT DETECTED [facility] Comment on above: Performed By: #### B CID2 ####[facility] [address]tewpslq[address] [place] [address]Dr. Nahed Yañez Bacteriodes fragilis Not detected Normal NOT DETECTED The [facility] Comment on above: Performed By: #### B CID2 ####[facility] Zjxzagrnuk[address] [place] [address]Dr. Nahed Yañez BCID CONTROLS PASSED Normal [facility] Comment on above: Performed By: #### B CID2 ####[facility] Fmsxprqvbd35[address] [place] [address]Dr. Nahed Yañez BCIDBTHD BLOOD CULTURE BOTTLE INFORMATION Normal [facility] Comment on above: Performed By: #### B CID2 ####[facility] Xejzctdxjc6[address] [place], [place] [address]Dr. Nahed Yañez BCIDHD1 ANTIMICROBIAL RESISTANCE GENES [facility] Comment on above: Performed By: #### B CID2 ####[facility] Dmxusqbnaz1804[address] [place], [place] [address]Dr. Nahed Yañez BCIDHD2 SEE BELOW Gunlock The [facility] Comment on above: Result Comment: Note : Antimicrobial resitance can occur via multiple mechanisms. A Not Detected result for the [employer] antomicrobial resistance gene assays does not indicate antimicrobial susceptibility. Subculturing is required for species identification and susceptibility testing of isolates. Performed By: #### B CID2 ####[facility] Jmrgrkczrg269[address] [place], [place] [address]Dr. Nahed Yañez BCIDHD3 Positive Normal [facility] Comment on above: Performed By: #### B CID2 ####[facility] Lonkrhdmsz[address] [place] [address]Dr. Nahed Yañez BCIDHD4 Negative Gunlock The [facility] Comment on above: Performed By: #### B CID2 ####[facility] Sqgjnjkujw[address] [place] [address]Dr. Nahed Yañez BCIDHD5 YEAST Normal [facility] Comment on above: Performed By: #### B CID2 ####[facility] [address]kgrsgtqyg[address] [place] [id number]. Nahed Yañez Bottle Set: Set 2 Normal The [facility] Comment on above: Performed By: #### B CID2 ####[facility] Vpcvutydmq6[address] [place] [address]Dr. Nahed Yañez Bottle: Pediatric Normal The [facility] Comment on above: Performed By: #### B CID2 ####[facility] Hewlkgasbi[address] [place] [address]Dr. Nahed Yañez C. neoformans/gattii Not detected Normal NOT DETECTED The [facility] Comment on above: Performed By: #### B CID2 ####[facility] Gvkikhdtny664[address] [place], [place] [address]Dr. Nahed Yañez Sil albicans Not detected Normal NOT DETECTED The [facility] Comment on above: Performed By: #### B CID2 ####[facility] Xjcwmyhpzd1074[address] [place], [place] [address]Dr. Nahed Yañez Sil auris Not detected Normal NOT DETECTED The [facility] Comment on above: Performed By: #### B CID2 ####[facility] Jtaqpalecl4922[address] [place], [place] [address]Dr. Nahed Yañez Sil glabrata Not detected Normal NOT DETECTED The [facility] Comment on above: Performed By: #### B CID2 ####[facility] Mcvwkqgxhg[address] [place] [address]Dr. Nahed Yañez Sil Krusei Not detected Normal NOT DETECTED The [facility] Comment on above: Performed By: #### B CID2 ####[facility] Xdklrvrslq[address] [place] [address]Dr. Nahed Yañez Sil Parapsilosis Not detected Normal NOT DETECTED The [facility] Comment on above: Performed By: #### B CID2 ####[facility] Jzjnfqgunt0193[address] [place], [place] [address]Dr. Nahed Yañez Sil Tropicalis Not detected Normal NOT DETECTED [facility] Comment on above: Performed By: #### B CID2 ####[facility] Jtmmkyqqif035[address] [place], [place] [address]Dr. Nahed Yañez CTX-M Resistant Gene Not Applicable Normal NOT DETECTE D The [facility] Comment on above: Performed By: #### B CID2 ####[facility] Xkghvqejoe3153[address] [place], [place] [address]Dr. Nahed Otilio E. Cloacae complex Not detected Normal NOT DETECTED [facility] Comment on above: Performed By: #### B CID2 ####[facility] Klzbgrmcuo2273[address] [place], [place] [address]Dr. Nahed Yañez E. faecalis Not detected Normal NOT DETECTED The [facility] Comment on above: Performed By: #### B CID2 ####[facility] Gfpstkvsrg2175[address] [place], [place] [address]Dr. Nahed Yañez E. faecium Not detected Normal NOT DETECTED The [facility] Comment on above: Performed By: #### B CID2 ####[facility] Xhnhftjwsq6452[address] [place], [place] [address]Dr. Nahed Yañez Enterobacteriaceae Not detected Normal NOT DETECTED [facility] Comment on above: Performed By: #### B CID2 ####[facility] Cduvftoclb728[address] [place], [place] [address]Dr. Nahed Yañez Escherichia coli Not detected Normal NOT DETECTED The [facility] Comment on above: Performed By: #### B CID2 ####[facility] Ugbralzhkq967718 [address] [place], [place] [address]Dr. Nahed Yañez H. influenzae Not detected Normal NOT DETECTED The [facility] Comment on above: Performed By: #### B CID2 ####[facility] Srbshsemom145518 [address] [place], [place] [address]Dr. Nahed Yañez IMP Resistant Gene Not Applicable Normal NOT DETECTED The [facility] Comment on above: Performed By: #### B CID2 ####[facility] Tbjxozewkx5776[address] [place], [place] [address]Dr. Nahed Yañez K. oxytoca Not detected Normal NOT DETECTED The [facility] Comment on above: Performed By: #### B CID2 ####[facility] Kzxejizvmp196[address] [place], [place] [address]Dr. Nahed Yañez K. pneumoniae Not detected Normal NOT DETECTED The [facility] Comment on above: Performed By: #### B CID2 ####[facility] Jcitlyprzh4334[address] [place], [place] [address]Dr. Nahed Yañez Klebsiella aerogenes Not detected Normal NOT DETECTED The [facility] Comment on above: Performed By: #### B CID2 ####[facility] Debnbiypue[address] [place] [address]Dr. Nahed Yañez KPC Resistant Gene Not detected Normal NOT DETECTED [facility] Comment on above: Performed By: #### B CID2 ####[facility] Wsxkkmesus9334[address] [place], [place] [address]Dr. Nahed Yañez List. monocytogenes Not detected Normal NOT DETECTED [facility] Comment on above: Performed By: #### B CID2 ####[facility] Amysyjhjch1889[address] [place], [place] [address]Dr. Nahed Yañez Mcr-1 Resistant Gene Not Applicable Normal NOT DETECTE D [facility] Comment on above: Performed By: #### B CID2 ####[facility] Wbyjslatsg9989[address] [place], [place] [address]Dr. Nahed Yañez mecA/C Not Applicable Normal NOT DETECTED The [facility] Comment on above: Performed By: #### B CID2 ####[facility] Zfupoawxkg8933[address] [place], [place] [address]Dr. Nahed Yañez mecA/C MREJ Not Applicable Normal NOT DETECTED The [facility] Comment on above: Performed By: #### B CID2 ####[facility] Ikrvdoutsx878[address] [place], [place] [address]Dr. Nahed Yañez N. meningitidis Not detected Normal NOT DETECTED The [facility] Comment on above: Performed By: #### B CID2 ####[facility] Ytnzaoudxv6824[address] [place], [place] [address]Dr. Nahed Yañez NDM Resistant Gene Not Applicable Normal NOT DETECTED The [facility] Comment on above: Performed By: #### B CID2 ####[facility] Cvlgtwtjdm6295[address] [place], [place] [address]Dr. Nahed Yañez Oxa-48-like Not Applicable Normal NOT DETECTED The [facility] Comment on above: Performed By: #### B CID2 ####[facility] Ekri[address]pafw[address] [place] [address]Dr. Nahed Yañez Proteus Not detected Normal NOT DETECTED The [facility] Comment on above: Performed By: #### B CID2 ####[facility] Mfsdsmjftu33[address] [place] [address]Dr. Nahed Yañez Pseud. aeruginosa Not detected Normal NOT DETECTED The [facility] Comment on above: Performed By: #### B CID2 ####[facility] Sodgqgedmm3483[address] [place], [place] [address]Dr. Nahed Yañez S. maltophilia Not detected Normal NOT DETECTED The [facility] Comment on above: Performed By: #### B CID2 ####[facility] Numcubropt2374[address] [place], [place] [address]Dr. Nahed Yañez Salmonella Not detected Normal NOT DETECTED The [facility] Comment on above: Performed By: #### B CID2 ####[facility] Kpzdusudpk2935[address] [place], [place] [address]Dr. Nahed Yañez Seratia marcescens Not detected Normal NOT DETECTED [facility] Comment on above: Performed By: #### B CID2 ####[facility] Honfqbokxm5586[address] [place], [place] [address]Dr. Nahed Yañez Site: R AC Normal The [facility] Comment on above: Performed By: #### B CID2 ####[facility] Uokbmzunrz3367[address] [place], [place] [address]Dr. Nahed Yañez Staph. aureus Not detected Normal NOT DETECTED The [facility] Comment on above: Performed By: #### B CID2 ####[facility] Butohifznz493[address] [place], [place] [address]Dr. Nahed Yañez Staph. epidermidis Not detected Normal NOT DETECTED [facility] Comment on above: Performed By: #### B CID2 ####[facility] Nuterrubul2048[address] [place], [place] [address]Dr. Nahed Yañez Staph. lugdunensis Not detected Normal NOT DETECTED [facility] Comment on above: Performed By: #### B CID2 ####[facility] Pgptlbkqdx526[address] [place], [place] [address]Dr. Nahed Yañez Staphylococcus Detected Critically abnormal NOT DETECTED The [facility] Comment on above: Performed By: #### B CID2 ####[facility] Wcmjystnaq459[address] [place], [place] [address]Dr. Nahed Yañez Strep. agalactiae Not detected Normal NOT DETECTED The [facility] Comment on above: Performed By: #### B CID2 ####[facility] Jvsinfxrtm4439[address] [place], [place] [address]Dr. Nahed Yañez Strep. pneumoniae Not detected Normal NOT DETECTED The [facility] Comment on above: Performed By: #### B CID2 ####[facility] Rqpztdjksm6411[address] [place], [place] [address]Dr. Nahed Yañez Strep. pyogenes Not detected Normal NOT DETECTED The [facility] Comment on above: Performed By: #### B CID2 ####[facility] Rdttnkzppt646418 [address] [place], [place] [address]Dr. Nahed Yañez Streptococcus Not detected Normal NOT DETECTED The [facility] Comment on above: Performed By: #### B CID2 ####[facility] Vsllpcluow4694[address] [place], [place] [address]Dr. Nahed Yañez Tucker/B Resist. Gene Not detected Normal NOT DETECTED [facility] Comment on above: Performed By: #### B CID2 ####[facility] Wargvivmed6495[address] [place], [place] [address]Dr. Nahed Yañez VIM Resistant Gene Not Applicable Normal NOT DETECTED The [facility] Comment on above: Performed By: #### B CID2 ####[facility] Bydzrfarlr7413[address] [place], [place] [address]Dr. Nahed Yañez CARDIAC FRANCISCO 3-6on 3 CK [Catalytic activity/Vol] 25 U/L Critically low 26-192 The [facility] Comment on above: Performed By: #### C MREP ####[facility] Ijfsqyjtwx[address] [place], [place] [address]Dr. Nahed Yañez CK.MB [Mass/Vol] ng/mL Normal <=3.60 The [facility] Comment on above: Performed By: #### C MREP ####[facility] [address] [place] [id number]. Nahed Yañez HSTROP 35.8 pg/mL Normal 4.0-51.3 The [facility] Comment on above: Result Comment: CUT- OFF POINTS HAVE BEEN ESTABLISHED BASED ON THE FOURTH UNIVERSAL DEFINITIONS OF MYOCARDIALINFARCTION. THE UPPER REFERENCE LIMIT (URL) OF TROPONIN, DEFINED THE 99TH PERCENTILE OFcTnI DISTRIBUTION IN A REFERENCE POPULATION, HAS BEEN CONFIRMED THE DECISION THRESHOLDFOR [place] DIAGNOSIS. Performed By: #### C MREP ####[facility] Y[address]utusy[address] [place] [address]Dr. Nahed Otilio CK [Catalytic activity/Vol] 28 U/L Normal 26-192 The [facility] Comment on above: Performed By: #### C MREP ####[facility] Vjxcqdfmko4029[address] [place], [place] [address]Dr. Rosemarieashley Yañez CK.MB [Mass/Vol] ng/mL Normal <=3.60 The [facility] Comment on above: Performed By: #### C MREP ####[facility] Zihurascnx5027[address] [place], [place] [address]Dr. Nahed Otilio HSTROP 36.8 pg/mL Normal 4.0-51.3 The [facility] Comment on above: Result Comment: CUT- OFF POINTS HAVE BEEN ESTABLISHED BASED ON THE FOURTH UNIVERSAL DEFINITIONS OF MYOCARDIALINFARCTION. THE UPPER REFERENCE LIMIT (URL) OF TROPONIN, DEFINED THE 99TH PERCENTILE OFcTnI DISTRIBUTION IN A REFERENCE POPULATION, HAS BEEN CONFIRMED THE DECISION THRESHOLDFOR [place] DIAGNOSIS. Performed By: #### C MREP ####[facility] Xlrgihiavp1052[address] [place], [place] [address]Dr. Rosemarieashley Otilio CBC AUTO DIFFon 07-30-2022 BASO # 0.0 103/ul Normal 0.0-0.1 [facility] Comment on above: Performed By: #### C BC ####[facility] Ytgwbqoniu5[address] [place] [phone]. Nahed Yañez Basophils/100 WBC (Bld) 0.1 % Critically low 0.2-2.0 The [facility] Comment on above: Performed By: #### C BC ####[facility] Wvyvkwkbzg7899 [place] [phone]. Nahed Yañez EO # 0.0 103/ul Normal 0.0-0.7 [facility] Comment on above: Performed By: #### C BC ####[facility] Nyqulsqekc68[address] [place] [phone]. Nahed Yañez Eosinophils/100 WBC (Bld) 0.0 % Critically low 0.9-7.0 [facility] Comment on above: Performed By: #### C BC ####[facility] Nnwcqjjxrf8[address] [place] [address]Dr. Nahed Yañez Erythrocyte distribution width (RBC) [Ratio] 14.4 % Normal 11.0-15.0 [facility] Comment on above: Performed By: #### C BC ####[facility] Cdnmdiirls35[address] [place], [place] [address]Dr. Nahed Yañez Hematocrit (Bld) [Volume fraction] 37.7 % Normal 36.0-48.0 [facility] Comment on above: Performed By: #### C BC ####[facility] Qfnfuujtbf5142[address] [place], [place] [address]Dr. Nahed Yañez Hemoglobin (Bld) [Mass/Vol] 12.1 g/dL Normal 12.0-16.0 [facility] Comment on above: Performed By: #### C BC ####[facility] Wxxlwfbyye[address] [place], [place] [address]Dr. Nahed Yañez IG # 0.07 10e3/ul Critically high 0.00-0.03 [facility] Comment on above: Performed By: #### C BC ####[facility] Rtnjankqhp13[address] [place], [place] [address]Dr. Nahed Yañez IG % 0.5 % Normal 0.0-0.5 [facility] Comment on above: Performed By: #### C BC ####[facility] Nbqscbmkps59[address] [place], [place] [address]Dr. Rosemarieashley Yañez LYMPH # 1.0 103/ul Critically low 1.2-3.8 The [facility] Comment on above: Performed By: #### C BC ####[facility] Tkffwholtj[address] [place] [phone]. Nahed Yañez Lymphocytes/100 WBC (Bld) 7.6 % Critically low 20.5-60.0 [facility] Comment on above: Performed By: #### C BC ####[facility] Qtvmqayoyz7[address] [place] [phone]. Nahed Yañez MANUAL DIFF REQ NO Normal [facility] Comment on above: Performed By: #### C BC ####[facility] Fjxqvlvqza09[address] [place] [phone]. Nahed Yañez MCH (RBC) [Entitic mass] 28.8 pg Normal 26.7-34.0 The [facility] Comment on above: Performed By: #### C BC ####[facility] Kbozrnuwtg50[address] [place] [address]Dr. Nahed Yañez MCHC (RBC) [Mass/Vol] 32.1 g/dL Normal 29.9-35.2 The [facility] Comment on above: Performed By: #### C BC ####[facility] Hhwgmxvwbt4[address] [place] [phone]. Nahed Yañez MCV (RBC) [Entitic vol] 89.8 fL Normal 81.0-99.0 The [facility] Comment on above: Performed By: #### C BC ####[facility] Bwjwqnpdvy4[address] [place] [phone]. Nahed Yañez MONO # 0.2 103/ul Critically low 0.3-0.8 The [facility] Comment on above: Performed By: #### C BC ####[facility] Phjiccmvop75[address] [place] [phone]. Nahed Yañez Monocytes/100 WBC (Bld) 1.5 % Critically low 1.7-12.0 The [facility] Comment on above: Performed By: #### C BC ####[facility] Ftbqfoeohi7[address] [place] [phone]. Nahed Yañez NEUT # 11.7 103/ul Critically high 1.4-6.5 The [facility] Comment on above: Performed By: #### C BC ####[facility] Xabgwfizvv4273 [place] [phone]. Nahed Yañez Neutrophils/100 WBC (Bld) 90.3 % Critically high 43.0-75.0 [facility] Comment on above: Performed By: #### C BC ####[facility] Ndrmmdihrt7398 [place] [phone]. Nahed Yañez Platelet mean volume (Bld) [Entitic vol] 9.9 fL Normal 9.5-13.5 [facility] Comment on above: Performed By: #### C BC ####[facility] Rluqtuhggm9947 [place] [phone]. Nahed Yañez PLT 319 103/ul Normal 150-450 [facility] Comment on above: Performed By: #### C BC ####[facility] Hmhqojlw[address] [place], [place] [address]Dr. Nahed Yañez RBC 4.20 106/ul Normal 4.20-5.40 [facility] Comment on above: Performed By: #### C BC ####[facility] Bsyrqmmyvn7560 [place] [phone]. Nahed Yañez WBC 13.0 103/ul Critically high 4.0-11.0 [facility] Comment on above: Performed By: #### C BC ####[facility] Vgpawxpuot9475 [place] [phone]. Nahed Yañez CULTURE BLOODon 07-30-2022 Microscopic examination of blood, culture Culture Observations: NO GROWTH AT 5 DAYS. Normal The [facility] Comment on above: Performed By: #### B LDCX1 ####[facility] [address]inf[address] [place], [place] [address]Dr. Nahed Yañez CULTURE SPUTUMon 07-30-2022 CULTURE SPUTUM Culture Observations : NORMAL RESPIRATORY MIGUEL. Normal [facility] Comment on above: Performed By: #### S PUTCX ####[facility] Gzhbldekcg[address] [place], [place] [address]Dr. Nahed Yañez CULTURE URINEon 07-30-2022 CULTURE URINE Culture Observations : MODERATE GROWTH OF MIXED GENITAL MIGUEL. NO POTENTIAL PATHOGENS SEEN. Normal The [facility] Comment on above: Performed By: #### U RCX ####[facility] Kpkiqwlyvy[address] [place], [place] [address]Dr. Nahed Otilio Covid-19 PCR (CVDTB)on 07-12 SARS-CoV-2 (COVID-19) RNA MIRNA+probe Ql (Unsp spec) Not detected Normal NOT DETECTED The [facility] Comment on above: Result Comment: When diagnostic [...] for this test is supported by the Pipe Testing Technician of Health and Human Service's declaration [...] be used). Performed By: #### C VDTB ####[facility] Wozhxdacnf1802[address] [place], [place] [address]Dr. Rosemarieashley Yañez ER URINE PROFILEon 3 Bilirubin Ql (U) Negative Normal NEGATIVE The [facility] Comment on above: Performed By: #### YARELIS DOVE ####[facility] Pweqyzyrqe[address] [place], [place] [address]Dr. Nahed Yañez Clarity (U) CLEAR Normal CLEAR The [facility] Comment on above: Performed By: #### YARELIS DOVE ####[facility] Dsoegofmxb0632[address] [place], [place] [address]Dr. Nahed Yañez Color (U) LT. YELLOW Normal YELLOW The [facility] Comment on above: Performed By: #### YARELIS DOVE ####[facility] Ituesrafyy66[address] [place] [address]Dr. Nahed AGEED A micrscopic examination will be performed if indicated. Normal The [facility] Comment on above: Performed By: #### YARELIS DOVE ####[facility] Zovrweagdw[address] [place] [address]Dr. Nahed Yañez Glucose Ql (U) 500 mg/dl Abnormal NEGATIVE The [facility] Comment on above: Performed By: #### YARELIS DOVE ####[facility] Lilwcumezg4365 [place] [address]Dr. Nahed Yañez Hemoglobin Ql (U) Negative Normal NEGATIVE The [facility] Comment on above: Performed By: #### YARELIS DOVE ####[facility] Aizqconctg[address] [place], [place] [address]Dr. Nahed Yañez Ketones Ql (U) Negative Normal NEGATIVE The [facility] Comment on above: Performed By: #### YAERLIS DOVE ####[facility] Ziedstkdyx[address] [place], [place] [address]Dr. Nahed Yañez LEUKOCYTES TRACE Abnormal NEGATIVE The [facility] Comment on above: Performed By: #### YARELIS DOVE ####[facility] Jjjzeyq[address] [place], [place] [address]Dr. Nahed Yañez Nitrite Ql (U) Negative Normal NEGATIVE The [facility] Comment on above: Performed By: #### YARELIS DOVE ####[facility] Szeshmklqm[address] [place], [place] [address]Dr. Nahed Yañez pH (U) 6.0 [pH] Normal 5-9 The [facility] Comment on above: Performed By: #### YARELIS DOVE ####[facility] Nasapgtbns[address] [place], [place] [address]Dr. Nahed Yañez SPEC GRAVITY >=1.030 Abnormal 1.005-<=1.02 5 The [facility] Comment on above: Performed By: #### YARELIS DOVE ####[facility] Askkejubyq[address] [place], [place] [address]Dr. Nahed Yañez UA PROTEIN Negative Normal NEGATIVE/ TRACE The [facility] Comment on above: Performed By: #### YARELIS DOVE ####[facility] Uvrphpvobc[address] [place], [place] [address]Dr. Nahed Yañez UR MICRO IND INDICATED Normal The [facility] Comment on above: Performed By: #### YARELIS DOVE ####[facility] Muocrspseq[address] [place], [place] [address]Dr. Nahed Yañez Urobilinogen Qn (U) 0.2 {Alem'U}/dL Normal 0.2 - 1. 0 [facility] Comment on above: Performed By: #### YARELIS DOVE ####[facility] Jamoayebiv[address] [place], [place] [address]Dr. Nahed Yañez INFLUENZA A AND B AGon 07-30 INFLUANEGH SEE BELOW Normal [facility] Comment on above: Result Comment: Nega tive for Flu A protein angiten. Infection due to Flu A cannot be ruled out. Flu A angiten in the sample may be below the detection limit of the test. Performed By: #### I NFLUAB ####[facility] Dwbikotnnp[address] [place], [place] [address]Dr. Nahed Yañez INFLUBNEGH SEE BELOW Normal The [facility] Comment on above: Result Comment: Nega tive for Flu B protein antigen. Infection due to Flu B cannot be ruled out. Flu B antigen in the sample may be below the detection limit of the test. Performed By: #### I NFLUAB ####[facility] Kxsapjbmjh[address] [place], [place] [address]Dr. Rosemarieashley Yañez INFLUENZA A AG Negative Normal NEGATIVE SEE COMMENT The [facility] Comment on above: Performed By: #### I NFLUAB ####[facility] Oevxuughqv7[address] [place], [place] [address]Dr. Nahed Yañez INFLUENZA B AG Negative Normal NEGATIVE SEE COMMENT The [facility] Comment on above: Performed By: #### I NFLUAB ####[facility] Dguspmszvg8726[address] [place], [place] [address]Dr. Nahed Yañez LACTATE/LACTIC ACIDon 2022 Lactate [Moles/Vol] 2.5 mmol/L Critically high 0.4-2.0 [facility] Comment on above: Performed By: #### L ACT ####[facility] [address] [place] [address]Dr. Nahed Yañez Lactate [Moles/Vol] 3.3 mmol/L Critically high 0.4-2.0 [facility] Comment on above: Performed By: #### L ACT ####[facility] Ktdhvqdvsa[address] [place], [place] [address]Dr. Nahed Yañez Lactate [Moles/Vol] 2.7 mmol/L Critically high 0.4-2.0 [facility] Comment on above: Performed By: #### L ACT ####[facility] Yxwhhaoigh7434[address] [place], [place] [address]Dr. Nahed Yañez Lactate [Moles/Vol] 2.8 mmol/L Critically high 0.4-2.0 [facility] Comment on above: Performed By: #### L ACT ####[facility] Yleqevwwni0138[address] [place], [place] [address]Dr. Nahed Otilio MAGNESIUMon 07-30-2022 Magnesium [Mass/Vol] 1.9 mg/dL Normal 1.8-2.4 [facility] Comment on above: Performed By: #### M G, CMP ####[facility] Bktwjewgfo[address] [place], [place] [address]Dr. Nahed Yañez POINT OF CARE GLUCOSEon 07-12 Glucose [Mass/Vol] 220 mg/dL Critically high 74-106 [facility] Comment on above: Performed By: #### P OCGLUC ####[facility] Fnnmskelfd[address] [place], [place] [address]Dr. Rosemarieashley Yañez Glucose [Mass/Vol] 162 mg/dL Critically high 74-106 [facility] Comment on above: Result Comment: Kaycee deonte Meter Performed By: #### P OCGLUC ####[facility] Bbazlqjrtd4542[address] [place], [place] [address]Dr. Nahed Yañez PROF 14(COMP METB)on 03-19-2 023 Albumin [Mass/Vol] 2.9 g/dL Critically low 3.4-5.0 [facility] Comment on above: Performed By: #### Pablo Moore, CMP ####[facility] [address] [place] [address]Dr. Nahed Yañez Albumin/Globulin [Mass ratio] 0.8 {ratio} Normal [facility] Comment on above: Performed By: #### Pablo Moore, CMP ####[facility] Fawiaddioz[address] [place] [address]Dr. Nahed Yañez ALP [Catalytic activity/Vol] 94 U/L Normal 46-116 [facility] Comment on above: Performed By: #### Pablo Moore, CMP ####[facility] Lxybvoocdg[address] [place], [place] [address]Dr. Nahed Yañez ALT [Catalytic activity/Vol] 22 U/L Normal 14-59 [facility] Comment on above: Performed By: #### Pablo Moore, CMP ####[facility] H[address]pedj[address] [place] [address]Dr. Nahed Yañez Anion gap [Moles/Vol] 12.4 mmol/L Normal [facility] Comment on above: Performed By: #### Pablo Moore, CMP ####[facility] Dfdzlocsso8086[address] [place], [place] [address]Dr. Nahed Yañez AST [Catalytic activity/Vol] 18 U/L Normal 15-37 [facility] Comment on above: Performed By: #### Pablo Moore, CMP ####[facility] Ijylymqhrr[address] [place] [address]Dr. Nahed Yañez Bilirubin [Mass/Vol] 0.1 mg/dL Critically low 0.2-1.0 [facility] Comment on above: Performed By: #### Pablo Moore, CMP ####[facility] Kdtkrqqhqq6825[address] [place], [place] [address]Dr. Nahed Yañez Calcium [Mass/Vol] 8.9 mg/dL Normal 8.5-10.1 [facility] Comment on above: Performed By: #### Pablo Moore, CMP ####[facility] Snhvrougch3363[address] [place], [place] [address]Dr. Nahed Yañez Chloride [Moles/Vol] 99 mmol/L Normal 98-107 The [facility] Comment on above: Performed By: #### Pablo Moore, CMP ####[facility] Njuzewrjee[address] [place], [place] [address]Dr. Nahed Yañez CO2 [Moles/Vol] 26.0 mmol/L Normal 21.0-32.0 The [facility] Comment on above: Performed By: #### Pablo Moore, CMP ####[facility] Fqgbcaaedh4559[address] [place], [place] [address]Dr. Nahed Otilio Creatinine [Mass/Vol] 1.16 mg/dL Critically high 0.55-1.02 The [facility] Comment on above: Performed By: #### Pablo Moore, CMP ####[facility] Zcnuziqgnn[address] [place], [place] [address]Dr. Nahed Otilio EGFR-AF CHILEAN 58 mL/min/1.73m2 Critically low >=60 [facility] Comment on above: Performed By: #### Pablo Moore, CMP ####[facility] Jkyuyjxigd4638[address] [place], [place] [address]Dr. Nahed Otilio EGFR-NON AF CHILEAN 47 mL/min/1.73m2 Critically low >=60 The [facility] Comment on above: Performed By: #### Pablo Moore, CMP ####[facility] Tghnrelzdg2924[address] [place], [place] [address]Dr. Rosemarieashley Yañez Globulin (S) [Mass/Vol] 3.7 g/dL Normal [facility] Comment on above: Performed By: #### Pablo Moore, CMP ####[facility] Khqqfngjpk04[address] [place], [place] [address]Dr. Rosemarieashley Otilio Glucose [Mass/Vol] 267 mg/dL Critically high 74-106 [facility] Comment on above: Performed By: #### Pablo Moore, CMP ####[facility] Umqlevgqsl235[address] [place], [place] [address]Dr. Nahed Yañez Potassium [Moles/Vol] 4.4 mmol/L Normal 3.5-5.1 The [facility] Comment on above: Performed By: #### Pablo Moore, CMP ####[facility] Spmkeksqsk[address]48[address] [place], [place] [address]Dr. Rosemarieashley Yañez Protein [Mass/Vol] 6.6 g/dL Normal 6.4-8.2 The [facility] Comment on above: Performed By: #### M Teresa, CMP ####[facility] Flosoilsdd6536[address] [place], [place] [address]Dr. Nahed Yañez Sodium [Moles/Vol] 133 mmol/L Critically low 136-145 [facility] Comment on above: Performed By: #### M Teresa, CMP ####[facility] Ozxemebuak7324[address] [place], [place] [address]Dr. Nahed Yañez Urea nitrogen [Mass/Vol] 33.0 mg/dL Critically high 7.0-18.0 [facility] Comment on above: Performed By: #### Pablo Moore, CMP ####[facility] Yggvndabdz[address] [place], [place] [address]Dr. Nahed Yañez Urea nitrogen/Creatinine [Mass ratio] 28.4 mg/mg Normal [facility] Comment on above: Performed By: #### Pablo Moore, CMP ####[facility] Mukmckscsl[address] [place], [place] [address]Dr. Nahed Yañez SPUTUM GRAM STAINon 07-31-19 COMMENTS Normal [facility] Comment on above: Performed By: #### S PUTGS ####[facility] Jqswpaoogu[address] [place], [place] [address]Dr. Nahed Yañez DIPHTHEROIDS Normal [facility] Comment on above: Performed By: #### S PUTGS ####[facility] Bpxognbnpa3454[address] [place], [place] [address]Dr. Nahed Yañez EPITHELIALS <25 Normal [facility] Comment on above: Performed By: #### S PUTGS ####[facility] Dpbfwlfacb[address] [place], [place] [address]Dr. Nahed Yañez FUNGAL ELEMENTS Normal The [facility] Comment on above: Performed By: #### S PUTGS ####[facility] Gxdivqddxg14[address] [place], [place] [address]Dr. Nahed Yañez GRAM NEG BACILLI Normal [facility] Comment on above: Performed By: #### S PUTGS ####[facility] [address] [place] [address]Dr. Nahed Yañez GRAM NEG DIPPLOCOCCI Normal The [facility] Comment on above: Performed By: #### S PUTGS ####[facility] [address]tncvg[address] [place] [address]Dr. Nahed Yañez GRAM POS BACILLI FEW Normal The [facility] Comment on above: Performed By: #### S PUTGS ####[facility] Rseqslowce[address] [place] [address]Dr. Nahed Yañez GRAM POSITIVE COCCI FEW Normal The [facility] Comment on above: Performed By: #### S PUTGS ####[facility] Ifgozbnqkp473[address] [place], [place] [address]Dr. Nahed Yañez WBC (Bld) [#/Vol] 10*3/uL Normal The [facility] Comment on above: Performed By: #### S PUTGS ####[facility] Mnqpzjgfsm[address] [place], [place] [address]Dr. Nahed Yañez URINE MICROSCOPIC ONLYon BACTERIA SMALL Abnormal NONE SEEN The [facility] Comment on above: Performed By: #### YARELIS DOVE ####[facility] Iodjujrtni[address] [place], [place] [address]Dr. Nahed Yañez Bacteria identified Cx Nom (U) INDICATED Normal The [facility] Comment on above: Performed By: #### YARELIS DOVE ####[facility] T[address]fsqkvckr[address] [place], [place] [address]Dr. Nahed Yañez CAST NONE SEEN Normal NONE SEEN The [facility] Comment on above: Performed By: #### NUNU DOVERO ####[facility] Nhheqkomyd[address] [place], [place] [address]Dr. Nahed Yañez Crystals LM Nom (Urine sed) NONE SEEN Normal NONE SEEN The [facility] Comment on above: Performed By: #### NUNU DOVERO ####[facility] [address] [place] [address]Dr. Nahed Yañez Epithelial cells LM Ql (Urine sed) FEW Abnormal NONE SEEN /RARE The [facility] Comment on above: Performed By: #### Isidoro ALCARAZ UMICRO ####[facility] [address] [place] [address]Dr. Nahed Yañez MUCOUS TRACE Abnormal NONE SEEN The [facility] Comment on above: Performed By: #### NUNU DOVERO ####[facility] [address] [place] [id number]. Nahed Yañez RBC 0-2 Normal 0-2 The [facility] Comment on above: Performed By: #### NUNU DOVERO ####[facility] Cfvtuuqclr[address] [place] [address]Dr. Nahed Yañez WBC 0-2 Abnormal NONE SEEN The [facility] Comment on above: Performed By: #### NUNU DOVERO ####[facility] Empinmrbyv[address] [place] [address]Dr. Nahed Yañez XR CHEST 1 Von 07-30-2022 XR CHEST 1 V Normal The [facility] CARDIAC FRANCISCO ADMITon 023 CK [Catalytic activity/Vol] 59 U/L Normal 26-192 The [facility] Comment on above: Performed By: #### BLADIMIR SINGH ####[facility] B[address]klmrlrj[address] [place], [place] [address]Dr. Nahed Yañez CK.MB [Mass/Vol] 0.59 ng/mL Normal <=3.60 The [facility] Comment on above: Performed By: #### BLADIMIR SINGH ####[facility] [address]epicdoixy[address] [place], [place] [address]Dr. Nahed Otilio HSTROP 40.7 pg/mL Normal 4.0-51.3 The [facility] Comment on above: Result Comment: CUT- OFF POINTS HAVE BEEN ESTABLISHED BASED ON THE FOURTH UNIVERSAL DEFINITIONS OF MYOCARDIALINFARCTION. THE UPPER REFERENCE LIMIT (URL) OF TROPONIN, DEFINED THE 99TH PERCENTILE OFcTnI DISTRIBUTION IN A REFERENCE POPULATION, HAS BEEN CONFIRMED THE DECISION THRESHOLDFOR [place] DIAGNOSIS. Performed By: #### BLADIMIR SINGH ####[facility] Xukemheekk[address] [place], [place] [address]Dr. Nahed Yañez ANDRE 89 ng/mL Critically high 9-82 The [facility] Comment on above: Performed By: #### C MADM, BMP ####[facility] Oc[address]wwqihn[address] [place], [place] [address]Dr. Nahed Yañez CBC AUTO DIFFon 07-29-2022 BASO # 0.0 103/ul Normal 0.0-0.1 The [facility] Comment on above: Performed By: #### C BC ####[facility] Xkvalkskkj[address] [place], [place] [address]Dr. Nahed Yañez Basophils/100 WBC (Bld) 0.1 % Critically low 0.2-2.0 The [facility] Comment on above: Performed By: #### C BC ####[facility] Ajibrwvacn2593[address] [place], [place] [address]Dr. Nahed Yañez EO # 0.0 103/ul Normal 0.0-0.7 The [facility] Comment on above: Performed By: #### C BC ####[facility] W[address]icrbmjxs[address] [place], [place] [address]Dr. Nahed Yañez Eosinophils/100 WBC (Bld) 0.0 % Critically low 0.9-7.0 The [facility] Comment on above: Performed By: #### C BC ####[facility] Cekinmqnfo[address] [place], [place] [address]Dr. Nahed Yañez Erythrocyte distribution width (RBC) [Ratio] 14.5 % Normal 11.0-15.0 The [facility] Comment on above: Performed By: #### C BC ####[facility] Sfxgeiixxe[address] [place], [place] [address]Dr. Nahed Yañez Hematocrit (Bld) [Volume fraction] 42.1 % Normal 36.0-48.0 The [facility] Comment on above: Performed By: #### C BC ####[facility] F[address]vjknxnxh70[address] [place], [place] [address]Dr. Nahed Yañez Hemoglobin (Bld) [Mass/Vol] 13.4 g/dL Normal 12.0-16.0 The [facility] Comment on above: Performed By: #### C BC ####[facility] [address] [place] [id number]. Nahed Otilio IG # 0.07 10e3/ul Critically high 0.00-0.03 The [facility] Comment on above: Performed By: #### C BC ####[facility] Z[address]cy[address] [place] [address]Dr. Nahed Yañez IG % 0.5 % Normal 0.0-0.5 The [facility] Comment on above: Performed By: #### C BC ####[facility] Bc[address]esqq[address] [place] [address]DrShaun Yañez LYMPH # 3.2 103/ul Normal 1.2-3.8 The [facility] Comment on above: Performed By: #### C BC ####[facility] Rznordkn[address] [place], [place] [address]Dr. Nahed Yañez Lymphocytes/100 WBC (Bld) 21.2 % Normal 20.5-60.0 The [facility] Comment on above: Performed By: #### C BC ####[facility] Lycvogmokp[address] [place], [place] [address]DrShaun Rosemarieashley Yañez MANUAL DIFF REQ NO Normal The [facility] Comment on above: Performed By: #### C BC ####[facility] F[address]xe[address]cf[address] [place] [address]DrShaun Nahed Yañez MCH (RBC) [Entitic mass] 28.1 pg Normal 26.7-34.0 The [facility] Comment on above: Performed By: #### C BC ####[facility] Je[address]bsi[address] [place] [address]DrShaun Nahed Otilio MCHC (RBC) [Mass/Vol] 31.8 g/dL Normal 29.9-35.2 The [facility] Comment on above: Performed By: #### C BC ####[facility] [address] [place] [address]DrShaun Nahed Otilio MCV (RBC) [Entitic vol] 88.3 fL Normal 81.0-99.0 The [facility] Comment on above: Performed By: #### C BC ####[facility] Ldhvlmsfjr[address] [place], [place] [address]Dr. Rosemarieashley Otilio MONO # 1.0 103/ul Critically high 0.3-0.8 The [facility] Comment on above: Performed By: #### C BC ####[facility] Abbhxqkahj[address] [place] [address]Dr. Nahed Yañez Monocytes/100 WBC (Bld) 6.3 % Normal 1.7-12.0 The [facility] Comment on above: Performed By: #### C BC ####[facility] Y[address]lele[address] [place] [address]Dr. Nahed Yañez NEUT # 11.0 103/ul Critically high 1.4-6.5 The [facility] Comment on above: Performed By: #### C BC ####[facility] Yjtcbjnkit[address] [place] [address]Dr. Nahed Yañez Neutrophils/100 WBC (Bld) 71.9 % Normal 43.0-75.0 The [facility] Comment on above: Performed By: #### C BC ####[facility] Mikkyqpexe[address] [place], [place] [address]Dr. Nahed Otilio Platelet mean volume (Bld) [Entitic vol] 9.9 fL Normal 9.5-13.5 The [facility] Comment on above: Performed By: #### C BC ####[facility] [address] [place] [address]Dr. Nahed Otilio PLT 385 103/ul Normal 150-450 The [facility] Comment on above: Performed By: #### C BC ####[facility] Crtrytixnp[address] [place], [place] [address]Dr. Nahed Otilio RBC 4.77 106/ul Normal 4.20-5.40 The [facility] Comment on above: Performed By: #### C BC ####[facility] Ccvurosjeu[address] [place] [address]Dr. Nahed Yañez WBC 15.3 103/ul Critically high 4.0-11.0 The [facility] Comment on above: Performed By: #### C BC ####[facility] Qlvzdwmnpx[address] [place] [address]Dr. Nahed Yañez PROF CHEM 8 (BAS METB)on Anion gap [Moles/Vol] 13.4 mmol/L Normal [facility] Comment on above: Performed By: #### Isabell AGRAWAL, BMP ####[facility] [address]vx[address] [place] [address]Dr. Nahed Yañez Calcium [Mass/Vol] 9.5 mg/dL Normal 8.5-10.1 [facility] Comment on above: Performed By: #### Isabell AGRAWAL, BMP ####[facility] Hspcrjyjud[address] [place] [address]Dr. Nahed Yañez Chloride [Moles/Vol] 101 mmol/L Normal 98-107 [facility] Comment on above: Performed By: #### Isabell AGRAWAL, BMP ####[facility] Umkxhflgdr[address] [place] [address]Dr. Nahed Yañez CO2 [Moles/Vol] 27.9 mmol/L Normal 21.0-32.0 [facility] Comment on above: Performed By: #### Isabell AGRAWAL, BMP ####[facility] [address]rzxjlk[address] [place] [address]Dr. Nahed Yañez Creatinine [Mass/Vol] 0.91 mg/dL Normal 0.55-1.02 [facility] Comment on above: Performed By: #### Isabell AGRAWAL, BMP ####[facility] [address]qx[address] [place] [address]Dr. Nahed Yañez EGFR-AF CHILEAN >60 Normal >=60 [facility] Comment on above: Performed By: #### Isabell AGRAWAL, BMP ####[facility] [address]tbvop[address] [place] [id number]. Nahed Yañez EGFR-NON AF CHILEAN >60 Normal >=60 The [facility] Comment on above: Performed By: #### Isabell AGRAWAL, BMP ####[facility] Whyywpflxa[address] [place] [address]Dr. Nahed Yañez Glucose [Mass/Vol] 100 mg/dL Normal 74-106 The [facility] Comment on above: Performed By: #### Isabell AGRAWAL, BMP ####[facility] Jmezymvona[address] [place] [address]Dr. Nahed Yañez Potassium [Moles/Vol] 4.3 mmol/L Normal 3.5-5.1 [facility] Comment on above: Result Comment: samp le slightly hemolized Performed By: #### C NGHIA, BMP ####[facility] Xzysrutswh[address] [place], [place] [address]Dr. Nahed Yañez Sodium [Moles/Vol] 138 mmol/L Normal 136-145 The [facility] Comment on above: Performed By: #### C NGHIA, BMP ####[facility] Teaqoniknv[address] [place], [place] [address]Dr. Nahed Yañez Urea nitrogen [Mass/Vol] 34.0 mg/dL Critically high 7.0-18.0 [facility] Comment on above: Performed By: #### C NGHIA, BMP ####[facility] Miqldudfsl[address] [place], [place] [address]Dr. Nahed Yañez Urea nitrogen/Creatinine [Mass ratio] 37.4 mg/mg Normal The [facility] Comment on above: Performed By: #### C NGHIA, BMP ####[facility] Vqxiattoxr[address] [place], [place] [address]Dr. Nahed Yañez BNPon 07-28-2022 Natriuretic peptide B (Bld) [Mass/Vol] 249.0 pg/mL Normal <=900.0 [facility] Comment on above: Performed By: #### B SUPERVISOR BROADLOOM ####[facility] Z[address]duhwzz[address] [place], [place] [address]Dr. Nahed Yañez CBC AUTO DIFFon 07-28-2022 BASO # 0.0 103/ul Normal 0.0-0.1 The [facility] Comment on above: Performed By: #### C BC ####[facility] Fhpsxfizbx[address] [place], [place] [address]Dr. Nahed Yañez Basophils/100 WBC (Bld) 0.1 % Critically low 0.2-2.0 [facility] Comment on above: Performed By: #### C BC ####[facility] Credznoujo[address] [place], [place] [address]Dr. Nahed Yañez EO # 0.0 103/ul Normal 0.0-0.7 [facility] Comment on above: Performed By: #### C BC ####[facility] Youskcodhi[address] [place] [address]Dr. Nahed Yañez Eosinophils/100 WBC (Bld) 0.0 % Critically low 0.9-7.0 The [facility] Comment on above: Performed By: #### C BC ####[facility] Tljhnihiis[address] [place], [place] [address]Dr. Nahed Yañez Erythrocyte distribution width (RBC) [Ratio] 14.3 % Normal 11.0-15.0 [facility] Comment on above: Performed By: #### C BC ####[facility] Udidpolgng[address] [place], [place] [address]Dr. Nahed Yañez Hematocrit (Bld) [Volume fraction] 38.7 % Normal 36.0-48.0 [facility] Comment on above: Performed By: #### C BC ####[facility] Maipdsahhz[address] [place], [place] [address]Dr. Nahed Yañez Hemoglobin (Bld) [Mass/Vol] 12.2 g/dL Normal 12.0-16.0 [facility] Comment on above: Performed By: #### C BC ####[facility] Fkgkofcpun360[address] [place], [place] [address]Dr. Nahed Yañez IG # 0.06 10e3/ul Critically high 0.00-0.03 [facility] Comment on above: Performed By: #### C BC ####[facility] V[address]rpzliv[address] [place] [address]Dr. Nahed Yañez IG % 0.5 % Normal 0.0-0.5 The [facility] Comment on above: Performed By: #### C BC ####[facility] Rzqyqhogax7[address] [place], [place] [address]DrShaun Nahed Yañez LYMPH # 0.7 103/ul Critically low 1.2-3.8 The [facility] Comment on above: Performed By: #### C BC ####[facility] Lierkxfseu[address] [place] [address]. Nahed Yañez Lymphocytes/100 WBC (Bld) 5.7 % Critically low 20.5-60.0 The [facility] Comment on above: Performed By: #### C BC ####[facility] Cugenwqm[address] [place] [address]Dr. Nahed Yañez MANUAL DIFF REQ NO Normal The [facility] Comment on above: Performed By: #### C BC ####[facility] Prafrrpdid[address] [place] [address]Dr. Nahed Yañez MCH (RBC) [Entitic mass] 28.2 pg Normal 26.7-34.0 The [facility] Comment on above: Performed By: #### C BC ####[facility] Nveyyccghf6436[address] [place], [place] [address]Dr. Nahed Yañez MCHC (RBC) [Mass/Vol] 31.5 g/dL Normal 29.9-35.2 The [facility] Comment on above: Performed By: #### C BC ####[facility] Dzjakqbbwd19[address] [place], [place] [address]Dr. Nahed Yañez MCV (RBC) [Entitic vol] 89.6 fL Normal 81.0-99.0 The [facility] Comment on above: Performed By: #### C BC ####[facility] Wprtjlyzjt[address] [place], [place] [address]Dr. Nahed Yañez MONO # 0.3 103/ul Normal 0.3-0.8 The [facility] Comment on above: Performed By: #### C BC ####[facility] Azhpnbhykk2492[address] [place], [place] [address]Dr. Nahed Yañez Monocytes/100 WBC (Bld) 2.2 % Normal 1.7-12.0 The [facility] Comment on above: Performed By: #### C BC ####[facility] Yvdukumlcu14[address] [place], [place] [address]Dr. Nahed Yañez NEUT # 11.1 103/ul Critically high 1.4-6.5 The [facility] Comment on above: Performed By: #### C BC ####[facility] Udheqfyuky9732[address] [place], [place] [address]Dr. Nahed Yañez Neutrophils/100 WBC (Bld) 91.5 % Critically high 43.0-75.0 [facility] Comment on above: Performed By: #### C BC ####[facility] Kgppxrrzun[address] [place] [address]Dr. Nahed Yañez Platelet mean volume (Bld) [Entitic vol] 10.1 fL Normal 9.5-13.5 [facility] Comment on above: Performed By: #### C BC ####[facility] Szpdffphos[address] [place] [address]Dr. Nahed Yañez PLT 323 103/ul Normal 150-450 [facility] Comment on above: Performed By: #### C BC ####[facility] Nnfadficld101[address] [place] [address]Dr. Nahed Yañez RBC 4.32 106/ul Normal 4.20-5.40 [facility] Comment on above: Performed By: #### C BC ####[facility] Yipguspzrt4968[address] [place], [place] [address]Dr. Nahed Yañez WBC 12.1 103/ul Critically high 4.0-11.0 [facility] Comment on above: Performed By: #### C BC ####[facility] Gdmaytwaix[address] [place], [place] [address]Dr. Nahed Yañez POINT OF CARE GLUCOSEon 07-12 Glucose [Mass/Vol] 308 mg/dL Critically high 74-106 [facility] Comment on above: Performed By: #### P OCGLUC ####[facility] Jchlqosiqs[address] [place] [address]Dr. Nahed Yañez Glucose [Mass/Vol] 341 mg/dL Critically high 74-106 [facility] Comment on above: Performed By: #### P OCGLUC ####[facility] Yjywyoqxfg[address]15[address] [place], [place] [address]Dr. Nahed Yañez Glucose [Mass/Vol] 320 mg/dL Critically high 74-106 [facility] Comment on above: Performed By: #### P OCGLUC ####[facility] Lkojmkprxg5032[address] [place], [place] [address]Dr. Nahed Yañez PROF 14(COMP METB)on 023 Albumin [Mass/Vol] 3.0 g/dL Critically low 3.4-5.0 [facility] Comment on above: Performed By: #### C MP ####[facility] Ojivwbcler[address] [place] [address]Dr. Nahed Yañez Albumin/Globulin [Mass ratio] 0.7 {ratio} Normal [facility] Comment on above: Performed By: #### C MP ####[facility] Ksnkekekvt11[address] [place] [address]Dr. Nahed Yañez ALP [Catalytic activity/Vol] 93 U/L Normal 46-116 [facility] Comment on above: Performed By: #### C MP ####[facility] Tzhgcypaed12[address] [place], [place] [address]Dr. Nahed Yañez ALT [Catalytic activity/Vol] 15 U/L Normal 14-59 [facility] Comment on above: Performed By: #### C MP ####[facility] Dnwkddxvik7104[address] [place], [place] [address]Dr. Nahed Yañez Anion gap [Moles/Vol] 13.0 mmol/L Normal [facility] Comment on above: Performed By: #### C MP ####[facility] Sdhjtotktz5202[address] [place], [place] [address]Dr. Nahed Yañez AST [Catalytic activity/Vol] 11 U/L Critically low 15-37 [facility] Comment on above: Performed By: #### C MP ####[facility] Bqmpzjwkec8137[address] [place], [place] [address]Dr. Nahed Yañez Bilirubin [Mass/Vol] 0.2 mg/dL Normal 0.2-1.0 [facility] Comment on above: Performed By: #### C MP ####[facility] Uqcxbxntcr6878[address] [place], [place] [address]Dr. Nahed Yañez Calcium [Mass/Vol] 9.6 mg/dL Normal 8.5-10.1 [facility] Comment on above: Performed By: #### C MP ####[facility] Flilcthfrx18[address] [place] [address]Dr. Nahed Yañez Chloride [Moles/Vol] 100 mmol/L Normal 98-107 The [facility] Comment on above: Performed By: #### C MP ####[facility] Npjntchsgy4274 [place] [address]Dr. Nahed Yañez CO2 [Moles/Vol] 27.3 mmol/L Normal 21.0-32.0 The [facility] Comment on above: Performed By: #### C MP ####[facility] Iovabmxeit9[address] [place] [address]Dr. Nahed Yañez Creatinine [Mass/Vol] 1.19 mg/dL Critically high 0.55-1.02 [facility] Comment on above: Performed By: #### C MP ####[facility] Ljdkeyivbf397[address] [place], [place] [address]Dr. Nahed Yañez EGFR-AF CHILEAN 56 mL/min/1.73m2 Critically low >=60 [facility] Comment on above: Performed By: #### C MP ####[facility] Zeizevamsk7917[address] [place], [place] [address]Dr. Nahed Yañez EGFR-NON AF CHILEAN 46 mL/min/1.73m2 Critically low >=60 The [facility] Comment on above: Performed By: #### C MP ####[facility] Vfeytkqetp8876[address] [place], [place] [address]Dr. Nahed Otilio Globulin (S) [Mass/Vol] 4.1 g/dL Normal [facility] Comment on above: Performed By: #### C MP ####[facility] Rvwutfpzmg8687 [place] [address]Dr. Nahed Otilio Glucose [Mass/Vol] 244 mg/dL Critically high 74-106 [facility] Comment on above: Performed By: #### C MP ####[facility] Rbbtkdvxig2055[address] [place], [place] [address]Dr. Nahed Yañez Potassium [Moles/Vol] 4.3 mmol/L Normal 3.5-5.1 The [facility] Comment on above: Performed By: #### C MP ####[facility] Zikewwjyhg6346 [place] [address]Dr. Nahed Yañez Protein [Mass/Vol] 7.1 g/dL Normal 6.4-8.2 The [facility] Comment on above: Performed By: #### C MP ####[facility] Zcmqrkqngt8[address] [place], [place] [address]Dr. Nahed Yañez Sodium [Moles/Vol] 136 mmol/L Normal 136-145 The [facility] Comment on above: Performed By: #### C MP ####[facility] Oabhyqyrkm1584[address] [place], [place] [address]Dr. Nahed Otilio Urea nitrogen [Mass/Vol] 19.0 mg/dL Critically high 7.0-18.0 The [facility] Comment on above: Performed By: #### C MP ####[facility] Jgqnvarjam315[address] [place], [place] [address]Dr. Rosemarieashley Yañez Urea nitrogen/Creatinine [Mass ratio] 16.0 mg/mg Normal The [facility] Comment on above: Performed By: #### C MP ####[facility] Kgbmfbbixa6717[address] [place], [place] [address]Dr. Nahed Otilio BNPon 07-27-2022 Natriuretic peptide B (Bld) [Mass/Vol] 1093.0 pg/mL Critically high <=900.0 The [facility] Comment on above: Performed By: #### B SUPERVISOR BROADLOOM ####[facility] Okpekilktz0345[address] [place], [place] [address]Dr. Nahed Otilio CBC AUTO DIFFon 07-27-2022 BASO # 0.1 103/ul Normal 0.0-0.1 The [facility] Comment on above: Performed By: #### C BC ####[facility] Eriorehfcp806[address] [place], [place] [address]Dr. Rosemarieashley Yañez Basophils/100 WBC (Bld) 0.3 % Normal 0.2-2.0 The [facility] Comment on above: Performed By: #### C BC ####[facility] Mbsdwuupxt4699[address] [place], [place] [address]Dr. Nahed Yañez EO # 0.2 103/ul Normal 0.0-0.7 The [facility] Comment on above: Performed By: #### C BC ####[facility] Nocvctcxds[address] [place] [id number]. Nahed Yañez Eosinophils/100 WBC (Bld) 1.2 % Normal 0.9-7.0 [facility] Comment on above: Performed By: #### C BC ####[facility] Yutkytdrqh5395 [place] [address]Dr. Nahed Yañez Erythrocyte distribution width (RBC) [Ratio] 14.1 % Normal 11.0-15.0 [facility] Comment on above: Performed By: #### C BC ####[facility] Scyxlzkorh6574[address] [place], [place] [address]Dr. Nahed Yañez Hematocrit (Bld) [Volume fraction] 42.2 % Normal 36.0-48.0 [facility] Comment on above: Performed By: #### C BC ####[facility] Tybdfzvffa326[address] [place], [place] [address]Dr. Nahde Yañez Hemoglobin (Bld) [Mass/Vol] 13.6 g/dL Normal 12.0-16.0 [facility] Comment on above: Performed By: #### C BC ####[facility] Ydzkktgfhw0917[address] [place], [place] [address]Dr. Nahed Yañez IG # 0.09 10e3/ul Critically high 0.00-0.03 [facility] Comment on above: Performed By: #### C BC ####[facility] Vzbsoxognd2296[address] [place], [place] [address]Dr. Nahed Yañez IG % 0.5 % Normal 0.0-0.5 The [facility] Comment on above: Performed By: #### C BC ####[facility] Mghmjzjmhd4936[address] [place], [place] [address]Dr. Nahed Yañez LYMPH # 1.8 103/ul Normal 1.2-3.8 The [facility] Comment on above: Performed By: #### C BC ####[facility] Ezlrqcgfkz032[address] [place], [place] [address]Dr. Nahed Yañez Lymphocytes/100 WBC (Bld) 10.2 % Critically low 20.5-60.0 The [facility] Comment on above: Performed By: #### C BC ####[facility] Nrmboyddmz[address] [place] [phone]. Nahed Yañez MANUAL DIFF REQ NO Normal The [facility] Comment on above: Performed By: #### C BC ####[facility] Hksyhkkcej6625 [place] [phone]. Nahed Yañez MCH (RBC) [Entitic mass] 28.3 pg Normal 26.7-34.0 The [facility] Comment on above: Performed By: #### C BC ####[facility] Plicqkckmw5564 [place] [address]Dr. Nahed Yañez MCHC (RBC) [Mass/Vol] 32.2 g/dL Normal 29.9-35.2 The [facility] Comment on above: Performed By: #### C BC ####[facility] Mrzudinlku[address] [place], [place] [address]Dr. Nahed Yañez MCV (RBC) [Entitic vol] 87.9 fL Normal 81.0-99.0 The [facility] Comment on above: Performed By: #### C BC ####[facility] Yfytzshirr6[address] [place], [place] [address]Dr. Nahed Yañez MONO # 0.9 103/ul Critically high 0.3-0.8 The [facility] Comment on above: Performed By: #### C BC ####[facility] Mmkhwdalxm2747[address] [place], [place] [address]Dr. Nahed Yañez Monocytes/100 WBC (Bld) 5.2 % Normal 1.7-12.0 The [facility] Comment on above: Performed By: #### C BC ####[facility] Ykffozgmyz[address] [place], [place] [address]DrShaun Yañez NEUT # 14.4 103/ul Critically high 1.4-6.5 The [facility] Comment on above: Performed By: #### C BC ####[facility] Eudyumstxb5634[address] [place], [place] [address]Dr. Nahed Yañez Neutrophils/100 WBC (Bld) 82.6 % Critically high 43.0-75.0 The [facility] Comment on above: Performed By: #### C BC ####[facility] Aeckszmiti[address] [place], [place] [address]Ge. Nahed Yañez Platelet mean volume (Bld) [Entitic vol] 10.1 fL Normal 9.5-13.5 [facility] Comment on above: Performed By: #### C BC ####[facility] Hkcjfwngpi400[address] [place] [phone]. Nahed Yañez PLT 336 103/ul Normal 150-450 The [facility] Comment on above: Performed By: #### C BC ####[facility] Cqzodvwukc01[address] [place], [place] [address]Iv. Nahed Yañez RBC 4.80 106/ul Normal 4.20-5.40 [facility] Comment on above: Performed By: #### C BC ####[facility] Fbqonnodhd8807 [place] [phone]. Nahed Yañez WBC 17.4 103/ul Critically high 4.0-11.0 The [facility] Comment on above: Performed By: #### C BC ####[facility] Jteywebcdp5255 [place], [place] [address]Lh. Nahed Yañez CTA CHEST WO W CONon 023 CTA CHEST WO W CON Normal The [facility] Covid-[facility] ([facility]on 07-12 SARS-CoV-2 (COVID-19) RNA MIRNA+probe Ql (Unsp spec) Not detected Normal NOT DETECTED The [facility] Comment on above: Result Comment: When diagnostic [...] for this test is supported by the [place] of Health and Human Service's declaration that [...] be used). Performed By: #### C VDTB ####[facility] Vyvjzzxnfp[address] [place], [place] [address]Dr. Nahed Yañez ECHOCARDIO M/2D COMPLETEon 0 07-27-2022 ECHOCARDIO M/2D COMPLETE Normal The [facility] ER URINE PROFILEon 3 Bilirubin Ql (U) Negative Normal NEGATIVE The [facility] Comment on above: Performed By: #### U MICRO, ERUR ####[facility] Mwbzhdiola0417[address] [place], [place] [address]Dr. Nahed Yañez Clarity (U) CLEAR Normal CLEAR [facility] Comment on above: Performed By: #### U MICRO, ERUR ####[facility] Xjjhtzszta[address] [place], [place] [address]Dr. Nahed Yañez Color (U) LT. YELLOW Normal YELLOW [facility] Comment on above: Performed By: #### U MICRO, ERUR ####[facility] Stdzksdnov[address] [place], [place] [address]Dr. Nahed CORNELLAHD A micrscopic examination will be performed if indicated. Normal The [facility] Comment on above: Performed By: #### U MICRO, ERUR ####[facility] Pgjzysifqo65[address] [place], [place] [address]Dr. Nahed Yañez Glucose Ql (U) >1000 Abnormal NEGATIVE The [facility] Comment on above: Performed By: #### U MICRO, ERUR ####[facility] Fkxhdxujhc[address] [place], [place] [address]Dr. Nahed Yañez Hemoglobin Ql (U) TRACE-LYSED Abnormal NEGATIVE The [facility] Comment on above: Performed By: #### U MICRO, ERUR ####[facility] Tsstuflglp62[address] [place], [place] [address]Dr. Nahed Yañez Ketones Ql (U) TRACE Abnormal NEGATIVE The [facility] Comment on above: Performed By: #### U MICRO, ERUR ####[facility] Fpzdhrmyyt[address] [place] [address]Dr. Rosemarieashley Yañez LEUKOCYTES Negative Normal NEGATIVE The [facility] Comment on above: Performed By: #### U MICRO, ERUR ####[facility] Nlxocoadjc23[address] [place] [address]Dr. Nahed Yañez Nitrite Ql (U) Negative Normal NEGATIVE The [facility] Comment on above: Performed By: #### U MICRO, ERUR ####[facility] Ulmudydfko12[address] [place] [address]Dr. Nahed Yañez pH (U) 7.0 [pH] Normal 5-9 The [facility] Comment on above: Performed By: #### U MICRO, ERUR ####[facility] Iaotrgjgvz76[address] [place] [address]Dr. Nahed Yañez SPEC GRAVITY 1.020 Normal 1.005-<=1.02 5 [facility] Comment on above: Performed By: #### U MICRO, ERUR ####[facility] Cqzgvdzaho[address] [place], [place] [address]Dr. Nahed Yañez UA PROTEIN Negative Normal NEGATIVE/ TRACE The [facility] Comment on above: Performed By: #### U MICRO, ERUR ####[facility] Nvudnxfufq[address] [place], [place] [address]Dr. Nahed Yañez UR MICRO IND INDICATED Normal The [facility] Comment on above: Performed By: #### U MICRO, ERUR ####[facility] Yauaxgefig[address] [place] [address]Dr. Nahed Yañez Urobilinogen Qn (U) 0.2 {Alem'U}/dL Normal 0.2 - 1. 0 [facility] Comment on above: Performed By: #### U MICRO, ERUR ####[facility] Tufgfsaafm[address] [place], [place] [address]Dr. Nahed Yañez LIPID PROFILEon 07-27-2022 CHOL-HDL RATIO NORM SEE BELOW Normal [facility] Comment on above: Result Comment: 3.3 - 4.4 LOW RISK 4.4 - 7.1 AVERAGE RISK 7.1 - 11.0 MODERATE RISK >11.0 HIGH RISK Performed By: #### M G, LIPID ####[facility] Pprprarwna[address] [place], [place] [address]Vs. Rosemarieashley Yañez Cholesterol [Mass/Vol] 181 mg/dL Normal <=200 [facility] Comment on above: Performed By: #### M G, LIPID ####[facility] Faxbwxmumy7061 [place], [place] [address]Uh. Nahed Yañez Cholesterol in HDL [Mass/Vol] 87 mg/dL Critically high 40-60 [facility] Comment on above: Performed By: #### Pablo Moore, LIPID ####[facility] Pmpjxnuxxi15[address] [place] [phone]. Nahed Yañez Cholesterol in LDL [Mass/Vol] 78.6 mg/dL Normal [facility] Comment on above: Performed By: #### Pablo Moore, LIPID ####[facility] Duiimprftv1045 [place] [phone]. Nahed Yañez Cholesterol.total/Chol esterol in HDL [Mass ratio] 2.1 {ratio} Normal [facility] Comment on above: Performed By: #### Pablo Moore, LIPID ####[facility] Tdbqqkplzu34[address] [place] [phone]. Nahed Yañez HDL NORMAL > or = 60 mg/dl - LO W CARDIOVASCULAR RISK <40 mg/dl - HIGH CARDIOVASCULAR RISK Normal [facility] Comment on above: Performed By: #### Pablo Moore, LIPID ####[facility] Phhzqduphe6245 [place] [phone]. Nahed Yañez LDL CALC NORMAL SEE BELOW Normal [facility] Comment on above: Result Comment: <100 mg/dl OPTIMAL 100 - 129 mg/dl NEAR OR ABOVE OPTIMAL 130 - 159 mg/dl BORDERLINE HIGH 160 - 189 mg/dl HIGH >190 mg/dl VERY HIGH Performed By: #### Pablo G, LIPID ####[facility] Pylshfgsub1047 [place] [phone]. Nahed Yañez Triglyceride [Mass/Vol] 77 mg/dL Normal <=150 [facility] Comment on above: Performed By: #### Pablo Moore, LIPID ####[facility] Zzzatfajwg[address] [place] [address]Dr. Nahed Yañez VLDL CALC 15.4 mg/dL Normal [facility] Comment on above: Performed By: #### M G, LIPID ####[facility] Pyjwduesiu39[address] [place] [address]Dr. Nahed Yañez MAGNESIUMon 07-27-2022 Magnesium [Mass/Vol] 1.7 mg/dL Critically low 1.8-2.4 [facility] Comment on above: Performed By: #### M G, LIPID ####[facility] Yljiabmloq9[address] [place], [place] [address]Dr. Nahed Yañez POINT OF CARE GLUCOSEon 07-12 Glucose [Mass/Vol] 276 mg/dL Critically high 74-106 [facility] Comment on above: Performed By: #### P OCGLUC ####[facility] Orzreikiar6[address] [place], [place] [address]Dr. Nahed Yañez Glucose [Mass/Vol] 143 mg/dL Critically high 74-106 [facility] Comment on above: Performed By: #### P OCGLUC ####[facility] Qabtfcpmhi219[address] [place], [place] [address]Dr. Nahed Yañez Glucose [Mass/Vol] 117 mg/dL Critically high 74-106 [facility] Comment on above: Performed By: #### P OCGLUC ####[facility] Qnoeyctbjj026[address] [place] [address]Dr. Nahed Yañez PROF CHEM 8 (BAS METB)on Anion gap [Moles/Vol] 11.1 mmol/L Normal [facility] Comment on above: Performed By: #### B MP, HSTROPN ####[facility] Hrroljfzbn[address] [place], [place] [address]Dr. Rosemarieashley Yañez Calcium [Mass/Vol] 9.6 mg/dL Normal 8.5-10.1 [facility] Comment on above: Performed By: #### B MP, HSTROPN ####[facility] Fshmirkybq4823 [place] [address]Dr. Nahed Yañez Chloride [Moles/Vol] 99 mmol/L Normal 98-107 [facility] Comment on above: Performed By: #### B RENZO, HSTROPN ####[facility] Soremiaqqb[address] [place] [address]Dr. Nahed Yañez CO2 [Moles/Vol] 27.8 mmol/L Normal 21.0-32.0 [facility] Comment on above: Performed By: #### B RENZO, HSTROPN ####[facility] Zotekuxgte[address] [place], [place] [address]Dr. Nahed Yañez Creatinine [Mass/Vol] 0.90 mg/dL Normal 0.55-1.02 [facility] Comment on above: Performed By: #### B RENZO, HSTROPN ####[facility] [address]msywcmusy[address] [place], [place] [address]Dr. Nahed Yañez EGFR-AF CHILEAN >60 Normal >=60 [facility] Comment on above: Performed By: #### Mery MULLER, HSTROPN ####[facility] Hvkwgtetxf25[address] [place], [place] [address]Dr. Nahed Yañez EGFR-NON AF CHILEAN >60 Normal >=60 [facility] Comment on above: Performed By: #### Mery MULLER, HSTROPN ####[facility] Rnljsdmgax[address] [place], [place] [address]Dr. Nahed Yañez Glucose [Mass/Vol] 133 mg/dL Critically high 74-106 [facility] Comment on above: Performed By: #### Mery MULLER, HSTROPN ####[facility] Dtnlpqkx[address] [place], [place] [address]Dr. Nahed Yañez Potassium [Moles/Vol] 3.9 mmol/L Normal 3.5-5.1 [facility] Comment on above: Performed By: #### Mery MULLER, HSTROPN ####[facility] Yrxpuikpkj[address] [place], [place] [address]Dr. Nahed Yañez Sodium [Moles/Vol] 134 mmol/L Critically low 136-145 [facility] Comment on above: Performed By: #### B RENZO, HSTROPN ####[facility] [address] [place] [id number]. Nahed Yañez Urea nitrogen [Mass/Vol] 9.0 mg/dL Normal 7.0-18.0 The [facility] Comment on above: Performed By: #### B MP, HSTROPN ####[facility] Rckmzixqrx[address] [place] [phone]. Nahed Yaeñz Urea nitrogen/Creatinine [Mass ratio] 10.0 mg/mg Normal The [facility] Comment on above: Performed By: #### B MP, HSTROPN ####[facility] Lewxqtlnhj[address] [place] [phone]. Nahed Yañez TROPONIN, HIGH SENSITIVITYon 07-27-2022 HSTROP 40.7 pg/mL Normal 4.0-51.3 The [facility] Comment on above: Result Comment: CUT- OFF POINTS HAVE BEEN ESTABLISHED BASED ON THE FOURTH UNIVERSAL DEFINITIONS OF MYOCARDIALINFARCTION. THE UPPER REFERENCE LIMIT (URL) OF TROPONIN, DEFINED THE 99TH PERCENTILE OFcTnI DISTRIBUTION IN A REFERENCE POPULATION, HAS BEEN CONFIRMED THE DECISION THRESHOLDFOR [place] DIAGNOSIS. Performed By: #### H STROPN ####[facility] Fzcbskseng[address] [place] [phone]. Nahed Yañez HSTROP 42.5 pg/mL Normal 4.0-51.3 The [facility] Comment on above: Result Comment: CUT- OFF POINTS HAVE BEEN ESTABLISHED BASED ON THE FOURTH UNIVERSAL DEFINITIONS OF MYOCARDIALINFARCTION. THE UPPER REFERENCE LIMIT (URL) OF TROPONIN, DEFINED THE 99TH PERCENTILE OFcTnI DISTRIBUTION IN A REFERENCE POPULATION, HAS BEEN CONFIRMED THE DECISION THRESHOLDFOR [place] DIAGNOSIS. Performed By: #### H STROPN ####[facility] Copsoxwbca[address] [place] [phone]. Nahed Yañez HSTROP 50.8 pg/mL Normal 4.0-51.3 The [facility] Comment on above: Result Comment: CUT- OFF POINTS HAVE BEEN ESTABLISHED BASED ON THE FOURTH UNIVERSAL DEFINITIONS OF MYOCARDIALINFARCTION. THE UPPER REFERENCE LIMIT (URL) OF TROPONIN, DEFINED THE 99TH PERCENTILE OFcTnI DISTRIBUTION IN A REFERENCE POPULATION, HAS BEEN CONFIRMED THE DECISION THRESHOLDFOR [place] DIAGNOSIS. Performed By: #### H STROPN ####[facility] Tucgqramwg[address] [place] [phone]. Nahed Yañez HSTROP 46.3 pg/mL Normal 4.0-51.3 The [facility] Comment on above: Result Comment: CUT- OFF POINTS HAVE BEEN ESTABLISHED BASED ON THE FOURTH UNIVERSAL DEFINITIONS OF MYOCARDIALINFARCTION. THE UPPER REFERENCE LIMIT (URL) OF TROPONIN, DEFINED THE 99TH PERCENTILE OFcTnI DISTRIBUTION IN A REFERENCE POPULATION, HAS BEEN CONFIRMED THE DECISION THRESHOLDFOR [place] DIAGNOSIS. Performed By: #### H STROPN, TSH ####[facility] Nkvntzrqlc4009 [place] [phone]. Nahed Yañez HSTROP 54.2 pg/mL Critically high 4.0-51.3 The [facility] Comment on above: Result Comment: CUT- OFF POINTS HAVE BEEN ESTABLISHED BASED ON THE FOURTH UNIVERSAL DEFINITIONS OF MYOCARDIALINFARCTION. THE UPPER REFERENCE LIMIT (URL) OF TROPONIN, DEFINED THE 99TH PERCENTILE OFcTnI DISTRIBUTION IN A REFERENCE POPULATION, HAS BEEN CONFIRMED THE DECISION THRESHOLDFOR [place] DIAGNOSIS. Performed By: #### B MP, HSTROPN ####[facility] Rifadfgkit[address] [place] [phone]. Nahed Yañez TSHon 07-27-2022 TSH 1.566 uIU/mL Normal 0.358-3.740 [facility] Comment on above: Performed By: #### H STROPN, TSH ####[facility] Xhetsbgojp13[address] [place] [phone]. Nahed Yañez URINE MICROSCOPIC ONLYon BACTERIA NONE SEEN Normal NONE SEEN The [facility] Comment on above: Performed By: #### U MICRO, ERUR ####[facility] Afquehvznk49[address] [place] [phone]. Nahed Yañez Bacteria identified Cx Nom (U) NOT INDICATED Normal The [facility] Comment on above: Performed By: #### U MICRO, ERUR ####[facility] Mmbpvqgbvg9910 [place] [phone]. Nahed Yañez CAST NONE SEEN Normal NONE SEEN The [facility] Comment on above: Performed By: #### U MICRO, ERUR ####[facility] Nqhonlipyr[address] [place] [address]Dr. Nahed Yañez Crystals LM Nom (Urine sed) NONE SEEN Normal NONE SEEN The [facility] Comment on above: Performed By: #### U MICRO, ERUR ####[facility] Bmvsfvbqyw5[address] [place] [address]Dr. Nahed Yañez Epithelial cells LM Ql (Urine sed) FEW Abnormal NONE SEEN /RARE The [facility] Comment on above: Performed By: #### U MICRO, ERUR ####[facility] Zlfuzhebma[address] [place], [place] [address]Dr. Nahed Yañez MUCOUS NONE SEEN Normal NONE SEEN The [facility] Comment on above: Performed By: #### U MICRO, ERUR ####[facility] Zbooxlafgy[address] [place], [place] [address]Dr. Nahed Yañez RBC 0-2 Normal 0-2 The [facility] Comment on above: Performed By: #### U MICRO, ERUR ####[facility] Uyxzajjnd[address] [place], [place] [address]Dr. Nahed Yañez WBC NONE SEEN Normal NONE SEEN The [facility] Comment on above: Performed By: #### U MICRO, ERUR ####[facility] Plnrnmscgl[address] [place], [place] [address]Dr. Nahed Yañez XR CHEST 1 Von 07-27-2022 XR CHEST 1 V Normal The [facility] INSULINon 05-09-2022 Insulin 21.1 uIU/mL Normal 2.6-24.9 The [facility] Comment on above: Performed By: #### I NSULIN ####[facility] Eayumyzxzv[address] [place], [place] [address]Dr. Nahed Yañez BNPon 05-08-2022 Natriuretic peptide B (Bld) [Mass/Vol] 58.0 pg/mL Normal <=900.0 The [facility] Comment on above: Performed By: #### B SUPERVISOR BROADLOOM, LIPID, T7, TSH, CMP ####[facility] Yrhuefnqff[address] [place] [address]Dr. Nahed Yañez CBC AUTO DIFFon 05-08-2022 BASO # 0.0 103/ul Normal 0.0-0.1 The [facility] Comment on above: Performed By: #### C BC ####[facility] Viafoumoiq[address] [place] [phone]. Nahed Yañez Basophils/100 WBC (Bld) 0.4 % Normal 0.2-2.0 The [facility] Comment on above: Performed By: #### C BC ####[facility] D[address]fwkbvpfv[address] [place], [place] [address]Dr. Nahed Yañez EO # 0.3 103/ul Normal 0.0-0.7 The [facility] Comment on above: Performed By: #### C BC ####[facility] Bbfkh[address] [place], [place] [id number]. Nahed Yañez Eosinophils/100 WBC (Bld) 4.2 % Normal 0.9-7.0 The [facility] Comment on above: Performed By: #### C BC ####[facility] Qvomoajfhv[address] [place], [place] [address]Dr. Nahed Yañez Erythrocyte distribution width (RBC) [Ratio] 14.0 % Normal 11.0-15.0 [facility] Comment on above: Performed By: #### C BC ####[facility] Oindrwqlma[address] [place], [place] [address]Dr. Nahed Yañez Hematocrit (Bld) [Volume fraction] 43.8 % Normal 36.0-48.0 The [facility] Comment on above: Performed By: #### C BC ####[facility] T[address]fzyas[address] [place], [place] [address]Dr. Nahed Yañez Hemoglobin (Bld) [Mass/Vol] 13.9 g/dL Normal 12.0-16.0 The [facility] Comment on above: Performed By: #### C BC ####[facility] Yowxiqcpnb[address] [place], [place] [address]Dr. Nahed Yañez IG # 0.01 10e3/ul Normal 0.00-0.03 The [facility] Comment on above: Performed By: #### C BC ####[facility] Vlpixixpgh[address] [place], [place] [address]Dr. Nahed Yañez IG % 0.1 % Normal 0.0-0.5 The [facility] Comment on above: Performed By: #### C BC ####[facility] Ejcgmmagag119[address] [place] [phone]. Nahed Otilio LYMPH # 2.8 103/ul Normal 1.2-3.8 [facility] Comment on above: Performed By: #### C BC ####[facility] Myegtoqyss0377 [place] [phone]. Nahed Yañez Lymphocytes/100 WBC (Bld) 37.6 % Normal 20.5-60.0 [facility] Comment on above: Performed By: #### C BC ####[facility] Nkmmmtigsq8896 [place] [phone]. Nahed Yañez MANUAL DIFF REQ NO Normal [facility] Comment on above: Performed By: #### C BC ####[facility] Pyfyglqrns110[address] [place] [phone]. Nahed Yañez MCH (RBC) [Entitic mass] 28.4 pg Normal 26.7-34.0 [facility] Comment on above: Performed By: #### C BC ####[facility] Yslzpzkjfy2525 [place] [phone]. Rosemarieashley Yañez MCHC (RBC) [Mass/Vol] 31.7 g/dL Normal 29.9-35.2 [facility] Comment on above: Performed By: #### C BC ####[facility] Bpgtkmsbne9734 [place] [phone]. Nahed Yañez MCV (RBC) [Entitic vol] 89.6 fL Normal 81.0-99.0 [facility] Comment on above: Performed By: #### C BC ####[facility] Emdwjqsiwm4301 [place] [phone]. Nahed Yañez MONO # 0.5 103/ul Normal 0.3-0.8 [facility] Comment on above: Performed By: #### C BC ####[facility] Vpdmlwvrjr0290 [place] [phone]. Nahed Yañez Monocytes/100 WBC (Bld) 6.8 % Normal 1.7-12.0 The [facility] Comment on above: Performed By: #### C BC ####[facility] Aaanwcydys6603 [place] [phone]. Nahed Yañez NEUT # 3.7 103/ul Normal 1.4-6.5 [facility] Comment on above: Performed By: #### C BC ####[facility] Uajsipvwgn8884 [place] [phone]. Nahed Yañez Neutrophils/100 WBC (Bld) 50.9 % Normal 43.0-75.0 The [facility] Comment on above: Performed By: #### C BC ####[facility] Ziexqxgmjt9743 [place] [phone]. Nahed Yañez Platelet mean volume (Bld) [Entitic vol] 9.8 fL Normal 9.5-13.5 [facility] Comment on above: Performed By: #### C BC ####[facility] Cvfwovsmia5215 [place] [phone]. Nahed Yañez PLT 306 103/ul Normal 150-450 The [facility] Comment on above: Performed By: #### C BC ####[facility] Fppnidckmh0199 [place] [phone]. Nahed Yañez RBC 4.89 106/ul Normal 4.20-5.40 The [facility] Comment on above: Performed By: #### C BC ####[facility] Slutdcwztc2734 [place] [phone]. Nahed Yañez WBC 7.3 103/ul Normal 4.0-11.0 The [facility] Comment on above: Performed By: #### C BC ####[facility] Gecegufncu67[address] [place] [phone]. Nahed Yañez FREE THYROXINE INDEX T7on FTI 2.92 Normal 1.30-4.50 The [facility] Comment on above: Performed By: #### B SUPERVISOR BROADLOOM, LIPID, T7, TSH, CMP ####[facility] Kyuoglcfsc4153 [place] [phone]. Nahed Yañez T3U 34.0 % Normal 30.0-39.0 The [facility] Comment on above: Performed By: #### B SUPERVISOR BROADLOOM, LIPID, T7, TSH, CMP ####[facility] Mqhowanaxt58[address] [place] [address]Dr. Nahed Yañez T4 [Mass/Vol] 8.60 ug/dL Normal 4.80-13.90 [facility] Comment on above: Performed By: #### B SUPERVISOR BROADLOOM, LIPID, T7, TSH, CMP ####[facility] Srukfkufay65[address] [place] [address]Dr. Nahed Yañez GLYCOHEMOGLOBIN A1Con 2021 ADA RECOMMENDATION SEE BELOW Normal The [facility] Comment on above: Result Comment: ADA RECOMMENDED LIMIT 4.0 - 6.0 ADA THERAPEUTIC TARGET < 7.0 ACTION SUGGESTED > 7.0 Performed By: #### A 1C ####[facility] Ajovsrvpsi[address] [place], [place] [address]Dr. Nahed Yañez Glucose [Mass/Vol] 146 mg/dL Normal The [facility] Comment on above: Performed By: #### A 1C ####[facility] Otmjqwmovp[address] [place], [place] [address]Dr. Nahed Yañez HbA1c (Bld) [Mass fraction] 6.7 % Critically high 4.5-6.2 [facility] Comment on above: Performed By: #### A 1C ####[facility] Jmhtmyhvry[address] [place] [address]Dr. Nahed Yañez IRONon 05-08-2022 Iron [Mass/Vol] 76.0 ug/dL Normal 50.0-170.0 The [facility] Comment on above: Performed By: #### V ITAD, IRON ####[facility] Uuydxqahfa80[address] [place] [address]Dr. Nahed Yañez LIPID PROFILEon 05-08-2022 CHOL-HDL RATIO NORM SEE BELOW Normal [facility] Comment on above: Result Comment: 3.3 - 4.4 LOW RISK 4.4 - 7.1 AVERAGE RISK 7.1 - 11.0 MODERATE RISK >11.0 HIGH RISK Performed By: #### B SUPERVISOR BROADLOOM, LIPID, T7, TSH, CMP ####[facility] Dvexzmiwlt8956 [place] [phone]. Nahed Yañez Cholesterol [Mass/Vol] 167 mg/dL Normal <=200 [facility] Comment on above: Performed By: #### B SUPERVISOR BROADLOOM, LIPID, T7, TSH, CMP ####[facility] Rxkmqcaqod8431 [place] [phone]. Nahed Yañez Cholesterol in HDL [Mass/Vol] 63 mg/dL Critically high 40-60 [facility] Comment on above: Performed By: #### B SUPERVISOR BROADLOOM, LIPID, T7, TSH, CMP ####[facility] Obzvx[address]ldh[address] [place], [place] [id number]. Nahed Yañez Cholesterol in LDL [Mass/Vol] 72.6 mg/dL Normal [facility] Comment on above: Performed By: #### B SUPERVISOR BROADLOOM, LIPID, T7, TSH, CMP ####[facility] Rzjygqmegp[address] [place], [place] [address]Dr. Nahed Yañez Cholesterol.total/Chol esterol in HDL [Mass ratio] 2.7 {ratio} Normal [facility] Comment on above: Performed By: #### B SUPERVISOR BROADLOOM, LIPID, T7, TSH, CMP ####[facility] Jsspapqpve[address] [place], [place] [address]Dr. Nahed Yañez HDL NORMAL > or = 60 mg/dl - LO W CARDIOVASCULAR RISK <40 mg/dl - HIGH CARDIOVASCULAR RISK Normal [facility] Comment on above: Performed By: #### B SUPERVISOR BROADLOOM, LIPID, T7, TSH, CMP ####[facility] Ecqcaehrye[address] [place], [place] [address]Dr. Nahed Yañez LDL CALC NORMAL SEE BELOW Normal The [facility] Comment on above: Result Comment: <100 mg/dl OPTIMAL 100 - 129 mg/dl NEAR OR ABOVE OPTIMAL 130 - 159 mg/dl BORDERLINE HIGH 160 - 189 mg/dl HIGH >190 mg/dl VERY HIGH Performed By: #### B SUPERVISOR BROADLOOM, LIPID, T7, TSH, CMP ####[facility] Imfxjsewnt[address] [place], [place] [address]Dr. Nahed Yañez Triglyceride [Mass/Vol] 157 mg/dL Critically high <=150 The [facility] Comment on above: Performed By: #### B SUPERVISOR BROADLOOM, LIPID, T7, TSH, CMP ####[facility] Mzvxlxxepe8358 [place] [phone]. Nahed Yañez VLDL CALC 31.4 mg/dL Normal [facility] Comment on above: Performed By: #### B SUPERVISOR BROADLOOM, LIPID, T7, TSH, CMP ####[facility] Nfupzwitqj9355 [place] [address]Dr. Nahed Yañez OCC BLD IMMUNO SCREENon 04-14 OCCULT BLOOD Negative Normal NEGATIVE [facility] Comment on above: Performed By: #### O BSCRN ####[facility] Dsstrlonoa0693 [place] [address]Dr. Nahed Yañez PROF 14(COMP METB)on 022 Albumin [Mass/Vol] 3.7 g/dL Normal 3.4-5.0 [facility] Comment on above: Performed By: #### B SUPERVISOR BROADLOOM, LIPID, T7, TSH, CMP ####[facility] Mftsushjdh[address] [place], [place] [address]Dr. Nahed Yañez Albumin/Globulin [Mass ratio] 0.9 {ratio} Normal [facility] Comment on above: Performed By: #### B SUPERVISOR BROADLOOM, LIPID, T7, TSH, CMP ####[facility] Afirxdsvea[address] [place], [place] [address]Dr. Nahed Yañez ALP [Catalytic activity/Vol] 99 U/L Normal 46-116 [facility] Comment on above: Performed By: #### B SUPERVISOR BROADLOOM, LIPID, T7, TSH, CMP ####[facility] Bhhfbcmbuj1492 [place] [address]Dr. Nahed Yañez ALT [Catalytic activity/Vol] 20 U/L Normal 14-59 [facility] Comment on above: Performed By: #### B SUPERVISOR BROADLOOM, LIPID, T7, TSH, CMP ####[facility] Ouiehekapc3172 [place] [address]Dr. Nahed Yañez Anion gap [Moles/Vol] 10.6 mmol/L Normal [facility] Comment on above: Performed By: #### B SUPERVISOR BROADLOOM, LIPID, T7, TSH, CMP ####[facility] Ykbzwvdzdd4357 [place] [address]Dr. Nahed Yañez AST [Catalytic activity/Vol] 29 U/L Normal 15-37 The [facility] Comment on above: Performed By: #### B SUPERVISOR BROADLOOM, LIPID, T7, TSH, CMP ####[facility] Imbifkdwyo2614 [place] [address]Dr. Nahed Yañez Bilirubin [Mass/Vol] 0.4 mg/dL Normal 0.2-1.0 The [facility] Comment on above: Performed By: #### B SUPERVISOR BROADLOOM, LIPID, T7, TSH, CMP ####[facility] Sqlfdtfgda[address] [place], [place] [address]Dr. Nahed Yañez Calcium [Mass/Vol] 9.3 mg/dL Normal 8.5-10.1 [facility] Comment on above: Performed By: #### B SUPERVISOR BROADLOOM, LIPID, T7, TSH, CMP ####[facility] Guikyvvjlg[address] [place], [place] [address]Dr. Nahed Yañez Chloride [Moles/Vol] 100 mmol/L Normal 98-107 The [facility] Comment on above: Performed By: #### B SUPERVISOR BROADLOOM, LIPID, T7, TSH, CMP ####[facility] Wouwmlrmbe35[address] [place], [place] [address]Dr. Nahed Yañez CO2 [Moles/Vol] 31.4 mmol/L Normal 21.0-32.0 The [facility] Comment on above: Performed By: #### B SUPERVISOR BROADLOOM, LIPID, T7, TSH, CMP ####[facility] Uptbkuhjqa[address] [place], [place] [address]Dr. Nahed Yañez Creatinine [Mass/Vol] 1.01 mg/dL Normal 0.55-1.02 The [facility] Comment on above: Performed By: #### B SUPERVISOR BROADLOOM, LIPID, T7, TSH, CMP ####[facility] Kjegelittr[address] [place], [place] [address]Dr. Nahed Yañez EGFR-AF CHILEAN >60 Normal >=60 [facility] Comment on above: Performed By: #### B SUPERVISOR BROADLOOM, LIPID, T7, TSH, CMP ####[facility] Ubkaprdqdh04[address] [place], [place] [address]Dr. Nahed Yañez EGFR-NON AF CHILEAN 56 mL/min/1.73m2 Critically low >=60 The [facility] Comment on above: Performed By: #### B SUPERVISOR BROADLOOM, LIPID, T7, TSH, CMP ####[facility] Fptkkowzbm0714 [place] [address]Dr. Nahed Yañez Globulin (S) [Mass/Vol] 3.9 g/dL Normal [facility] Comment on above: Performed By: #### B SUPERVISOR BROADLOOM, LIPID, T7, TSH, CMP ####[facility] Lzrgfzwblj0168 [place] [address]Dr. Nahed Yañez Glucose [Mass/Vol] 111 mg/dL Critically high 74-106 T [facility] Comment on above: Performed By: #### B SUPERVISOR BROADLOOM, LIPID, T7, TSH, CMP ####[facility] Wxzivvkryc[address] [place], [place] [address]Dr. Nahed Yañez Potassium [Moles/Vol] 4.0 mmol/L Normal 3.5-5.1 The [facility] Comment on above: Performed By: #### B SUPERVISOR BROADLOOM, LIPID, T7, TSH, CMP ####[facility] S[address]wnukyj[address] [place], [place] [address]Dr. Nahed Yañez Protein [Mass/Vol] 7.6 g/dL Normal 6.4-8.2 The [facility] Comment on above: Performed By: #### B SUPERVISOR BROADLOOM, LIPID, T7, TSH, CMP ####[facility] Vlhrnornnp[address] [place], [place] [address]Dr. Nahed Yañez Sodium [Moles/Vol] 138 mmol/L Normal 136-145 The [facility] Comment on above: Performed By: #### B SUPERVISOR BROADLOOM, LIPID, T7, TSH, CMP ####[facility] Satwmrpszs[address] [place], [place] [address]Dr. Nahed Yañez Urea nitrogen [Mass/Vol] 17.0 mg/dL Normal 7.0-18.0 [facility] Comment on above: Performed By: #### B SUPERVISOR BROADLOOM, LIPID, T7, TSH, CMP ####[facility] Ommcndrhrw[address] [place], [place] [address]Dr. Nahed Yañez Urea nitrogen/Creatinine [Mass ratio] 16.8 mg/mg Normal The [facility] Comment on above: Performed By: #### B SUPERVISOR BROADLOOM, LIPID, T7, TSH, CMP ####[facility] Hecshuhwff5535 [place] [id number]. Nahed Yañez TSHon 05-08-2022 TSH 2.835 uIU/mL Normal 0.358-3.740 [facility] Comment on above: Performed By: #### B SUPERVISOR BROADLOOM, LIPID, T7, TSH, CMP ####[facility] Wxinqrqpdm3075 [place] [id number]. Rosemarieashley Otilio VITAMIN D 25 OHon 05-08-2022 VIT D 25-OH 13.4 ng/mL Normal The [facility] Comment on above: Performed By: #### V GRAEME, IRON ####[facility] Slhikyxxlf69[address] [place] [address]Dr. Nahed Yañez VIT D RANGES SEE BELOW Normal The [facility] Comment on above: Result Comment: <20 ng/mL Vit D deficient 20 - <30 ng/mL Vit D insufficient 30 - 100 ng/mL Vit D sufficient >100 ng/mL Potential Toxicity Performed By: #### Bianca BEDOLLA, IRON ####[facility] Udalzclhua[address] [place] [address]Dr. Nahed Yañez CARDIAC FRANCISCO 3-6on 2 CK [Catalytic activity/Vol] 37 U/L Normal 26-192 The [facility] Comment on above: Performed By: #### C MREP ####[facility] [address]fp[address] [place], [place] [address]Dr. Nahed Yañez CK.MB [Mass/Vol] 0.79 ng/mL Normal <=3.60 [facility] Comment on above: Performed By: #### C MREP ####[facility] Anewsnwzlm[address] [place] [address]Dr. Nahed Yañez HSTROP 55.3 pg/mL Critically high 4.0-51.3 The [facility] Comment on above: Result Comment: CUT- OFF POINTS HAVE BEEN ESTABLISHED BASED ON THE FOURTH UNIVERSAL DEFINITIONS OF MYOCARDIALINFARCTION. THE UPPER REFERENCE LIMIT (URL) OF TROPONIN, DEFINED THE 99TH PERCENTILE OFcTnI DISTRIBUTION IN A REFERENCE POPULATION, HAS BEEN CONFIRMED THE DECISION THRESHOLDFOR [place] DIAGNOSIS. Performed By: #### C MREP ####[facility] [address]lrl[address]juic[address] [place], [place] [address]Hv. Nahed Yañez CK [Catalytic activity/Vol] 49 U/L Normal 26-192 The [facility] Comment on above: Performed By: #### C MREP ####[facility] [address]utzsea[address] [place], [place] [address]Ei. Nahed Yañez CK.MB [Mass/Vol] 0.71 ng/mL Normal <=3.60 The [facility] Comment on above: Performed By: #### C MREP ####[facility] Rhiqerbgoz64[address] [place], [place] [address]Bd. Nahed Yañez HSTROP 62.6 pg/mL Critically high 4.0-51.3 The [facility] Comment on above: Result Comment: CUT- OFF POINTS HAVE BEEN ESTABLISHED BASED ON THE FOURTH UNIVERSAL DEFINITIONS OF MYOCARDIALINFARCTION. THE UPPER REFERENCE LIMIT (URL) OF TROPONIN, DEFINED THE 99TH PERCENTILE OFcTnI DISTRIBUTION IN A REFERENCE POPULATION, HAS BEEN CONFIRMED THE DECISION THRESHOLDFOR [place] DIAGNOSIS. Performed By: #### C MREP ####[facility] Lcokmyftpz7[address] [place], [place] [address]Sv. Nahed Yañez Covid-19 PCR ([facility])on 01-13 SARS-CoV-2 (COVID-19) RNA MIRNA+probe Ql (Unsp spec) Not detected Normal NOT DETECTED The [facility] Comment on above: Result Comment: When diagnostic [...] for this test is supported by the [place] of Health and Human Service's declaration that [...] longer be used). Performed By: #### C [facility] ####[facility] Eggfrymvqq[address] [place] [id number]. Nahed Yañez ECHO LIMITED STUDYon 022 ECHO LIMITED STUDY Normal The [facility] GLYCOHEMOGLOBIN A1Con 2021 ADA RECOMMENDATION SEE BELOW Normal The [facility] Comment on above: Result Comment: ADA RECOMMENDED LIMIT 4.0 - 6.0 ADA THERAPEUTIC TARGET < 7.0 ACTION SUGGESTED > 7.0 Performed By: #### A 1C ####[facility] [address] [place], [place] [address]Dr. Nahed Yañez Glucose [Mass/Vol] 140 mg/dL Normal The [facility] Comment on above: Performed By: #### A 1C ####[facility] Mos[address] [place], [place] [address]Dr. Nahed Yañez HbA1c (Bld) [Mass fraction] 6.5 % Critically high 4.5-6.2 [facility] Comment on above: Performed By: #### A 1C ####[facility] S[address] [place], [place] [address]Dr. Nahed Yañez LIPID PROFILEon 01-31-2022 CHOL-HDL RATIO NORM SEE BELOW Normal [facility] Comment on above: Result Comment: 3.3 - 4.4 LOW RISK 4.4 - 7.1 AVERAGE RISK 7.1 - 11.0 MODERATE RISK >11.0 HIGH RISK Performed By: #### L IPID ####[facility] [address]lslegtgib[address] [place] [address]Dr. Nahed Yañez Cholesterol [Mass/Vol] 152 mg/dL Normal <=200 [facility] Comment on above: Performed By: #### L IPID ####[facility] Ottrtljnos26[address] [place] [address]Dr. Nahed Yañez Cholesterol in HDL [Mass/Vol] 74 mg/dL Critically high 40-60 [facility] Comment on above: Performed By: #### L IPID ####[facility] Mimstemcda7564 [place] [id number]. Nahed Yañez Cholesterol in LDL [Mass/Vol] 62.8 mg/dL Normal [facility] Comment on above: Performed By: #### L IPID ####[facility] Lhhdghsxnd2290 [place] [id number]. Nahed Yañez Cholesterol.total/Chol esterol in HDL [Mass ratio] 2.1 {ratio} Normal [facility] Comment on above: Performed By: #### L IPID ####[facility] Cajfhlxoqv[address] [place] [id number]. Nahed Yañez HDL NORMAL > or = 60 mg/dl - LO W CARDIOVASCULAR RISK <40 mg/dl - HIGH CARDIOVASCULAR RISK Normal [facility] Comment on above: Performed By: #### L IPID ####[facility] Qvavnzgyzd8395 [place] [address]Dr. Nahed Yañez LDL CALC NORMAL SEE BELOW Normal The [facility] Comment on above: Result Comment: <100 mg/dl OPTIMAL 100 - 129 mg/dl NEAR OR ABOVE OPTIMAL 130 - 159 mg/dl BORDERLINE HIGH 160 - 189 mg/dl HIGH >190 mg/dl VERY HIGH Performed By: #### L IPID ####[facility] Rtuwwkoken20[address] [place] [id number]. Nahed Yañez Triglyceride [Mass/Vol] 76 mg/dL Normal <=150 The [facility] Comment on above: Performed By: #### L IPID ####[facility] Pyovqwoayq0822 [place] [id number]. Nahed Yañez VLDL CALC 15.2 mg/dL Normal The [facility] Comment on above: Performed By: #### L IPID ####[facility] Tzkoxxqnis67[address] [place] [id number]. Nahed Yañez XR CHEST 1 Von 01-31-2022 XR CHEST 1 V Normal The [facility] BNPon 01-30-2022 Natriuretic peptide B (Bld) [Mass/Vol] 150.0 pg/mL Normal <=900.0 The [facility] Comment on above: Performed By: #### B MP, BNP, CMADM ####[facility] Ohpwppelev[address] [place] [address]Dr. Nahed Yañez CARDIAC FRANCISCO ADMITon 022 CK [Catalytic activity/Vol] 88 U/L Normal 26-192 The [facility] Comment on above: Performed By: #### B MP, BNP, CMADM ####[facility] Cjhyjjedvm3431 [place] [address]Dr. Nahed Yañez CK.MB [Mass/Vol] 1.26 ng/mL Normal <=3.60 The [facility] Comment on above: Performed By: #### B MP, BNP, CMADM ####[facility] Mefagqafwn64[address] [place] [address]Dr. Nahed Otilio HSTROP 69.3 pg/mL Critically high 4.0-51.3 The [facility] Comment on above: Result Comment: CUT- OFF POINTS HAVE BEEN ESTABLISHED BASED ON THE FOURTH UNIVERSAL DEFINITIONS OF MYOCARDIALINFARCTION. THE UPPER REFERENCE LIMIT (URL) OF TROPONIN, DEFINED THE 99TH PERCENTILE OFcTnI DISTRIBUTION IN A REFERENCE POPULATION, HAS BEEN CONFIRMED THE DECISION THRESHOLDFOR [place] DIAGNOSIS. Performed By: #### B MP, BNP, CMADM ####[facility] Bbbrnhkqvc39[address] [place] [address]Dr. Nahed Otilio ANDRE 59 ng/mL Normal 9-82 The [facility] Comment on above: Performed By: #### B MP, BNP, CMADM ####[facility] Kvrrfjoaav6[address] [place] [address]Dr. Nahed Otilio CBC AUTO DIFFon 01-30-2022 BASO # 0.0 103/ul Normal 0.0-0.1 The [facility] Comment on above: Performed By: #### C BC ####[facility] Jrdpgatyqa2092 [place] [address]Dr. Rosemarieashley Yañez Basophils/100 WBC (Bld) 0.2 % Normal 0.2-2.0 [facility] Comment on above: Performed By: #### C BC ####[facility] Htprqthzxp1235 [place] [address]Dr. Nahed Yañez EO # 0.1 103/ul Normal 0.0-0.7 The [facility] Comment on above: Performed By: #### C BC ####[facility] Xntiqazsof[address]054 [place] [address]Dr. Nahed Yañez Eosinophils/100 WBC (Bld) 0.8 % Critically low 0.9-7.0 The [facility] Comment on above: Performed By: #### C BC ####[facility] Wvhoddkyhg3189 [place] [address]Dr. Nahed Yañez Erythrocyte distribution width (RBC) [Ratio] 14.9 % Normal 11.0-15.0 The [facility] Comment on above: Performed By: #### C BC ####[facility] [address]wxdsh[address] [place], [place] [address]Dr. Nahed Yañez Hematocrit (Bld) [Volume fraction] 45.8 % Normal 36.0-48.0 The [facility] Comment on above: Performed By: #### C BC ####[facility] C[address]uxmvfc[address] [place], [place] [address]Dr. Nahed Yañez Hemoglobin (Bld) [Mass/Vol] 14.7 g/dL Normal 12.0-16.0 The [facility] Comment on above: Performed By: #### C BC ####[facility] [address] [place], [place] [address]Dr. Nahed Yañez IG # 0.07 10e3/ul Critically high 0.00-0.03 [facility] Comment on above: Performed By: #### C BC ####[facility] Eecpbkqock[address] [place] [address]Dr. Nahed Yañez IG % 0.4 % Normal 0.0-0.5 The [facility] Comment on above: Performed By: #### C BC ####[facility] I[address]riqcti[address] [place], [place] [address]Dr. Nahed Yañez LYMPH # 2.3 103/ul Normal 1.2-3.8 The [facility] Comment on above: Performed By: #### C BC ####[facility] [address] [place] [address]. Nahed Yañez Lymphocytes/100 WBC (Bld) 12.5 % Critically low 20.5-60.0 The [facility] Comment on above: Performed By: #### C BC ####[facility] Ffjhmygesn[address] [place] [address]Dr. Nahed Yañez MANUAL DIFF REQ NO Normal The [facility] Comment on above: Performed By: #### C BC ####[facility] Fxmaizzqxw9015 [place] [address]Dr. Nahed Yañez MCH (RBC) [Entitic mass] 28.0 pg Normal 26.7-34.0 The [facility] Comment on above: Performed By: #### C BC ####[facility] X[address] [place], [place] [address]Dr. Nahed Yañez MCHC (RBC) [Mass/Vol] 32.1 g/dL Normal 29.9-35.2 The [facility] Comment on above: Performed By: #### C BC ####[facility] Fs[address] [place], [place] [address]Dr. Nahed Yañez MCV (RBC) [Entitic vol] 87.2 fL Normal 81.0-99.0 The [facility] Comment on above: Performed By: #### C BC ####[facility] [address] [place], [place] [address]Dr. Nahed Yañez MONO # 0.9 103/ul Critically high 0.3-0.8 The [facility] Comment on above: Performed By: #### C BC ####[facility] [address]al[address]uy[address] [place], [place] [address]Dr. Nahed Yañez Monocytes/100 WBC (Bld) 5.1 % Normal 1.7-12.0 The [facility] Comment on above: Performed By: #### C BC ####[facility] Lpworksuks[address] [place], [place] [address]Dr. Nahed Yañez NEUT # 14.6 103/ul Critically high 1.4-6.5 The [facility] Comment on above: Performed By: #### C BC ####[facility] R[address]zyifgld[address] [place], [place] [address]Dr. Nahed Yañez Neutrophils/100 WBC (Bld) 81.0 % Critically high 43.0-75.0 [facility] Comment on above: Performed By: #### C BC ####[facility] Dyvezikgau[address] [place] [address]Dr. Nahed Yañez Platelet mean volume (Bld) [Entitic vol] 10.3 fL Normal 9.5-13.5 [facility] Comment on above: Performed By: #### C BC ####[facility] Zmnbvbsusy4228 [place] [address]Dr. Nahed Yañez PLT 280 103/ul Normal 150-450 [facility] Comment on above: Performed By: #### C BC ####[facility] Rwiljgodgm2664 [place] [address]Dr. Nahed Yañez RBC 5.25 106/ul Normal 4.20-5.40 [facility] Comment on above: Performed By: #### C BC ####[facility] Ubpvfbokrr[address]996 [place] [address]Dr. Nahed Yañez WBC 18.1 103/ul Critically high 4.0-11.0 [facility] Comment on above: Performed By: #### C BC ####[facility] Gyvdovoknb[address]65 [place] [address]Dr. Nahed Yañez PROF CHEM 8 (BAS METB)on Anion gap [Moles/Vol] 13.5 mmol/L Normal [facility] Comment on above: Performed By: #### B MP, BNP, CMADM ####[facility] Rlorlevizg8683 [place] [address]Dr. Nahed Yañez Calcium [Mass/Vol] 9.5 mg/dL Normal 8.5-10.1 [facility] Comment on above: Performed By: #### B MP, BNP, CMADM ####[facility] Tujaxwjmgr[address] [place] [address]Dr. Nahed Yañez Chloride [Moles/Vol] 102 mmol/L Normal 98-107 [facility] Comment on above: Performed By: #### B MP, BNP, CMADM ####[facility] Lrzpajzmmq0898 [place] [address]Dr. Nahed Yañez CO2 [Moles/Vol] 26.6 mmol/L Normal 21.0-32.0 [facility] Comment on above: Performed By: #### B MP, BNP, CMADM ####[facility] Lwszeyfklo[address] [place] [address]Dr. Nahed Yañez Creatinine [Mass/Vol] 1.06 mg/dL Critically high 0.55-1.02 [facility] Comment on above: Performed By: #### B MP, BNP, CMADM ####[facility] Brxnwukfkr[address] [place] [address]Dr. Nahed Yañez EGFR-AF CHILEAN >60 Normal >=60 [facility] Comment on above: Performed By: #### B MP, BNP, CMADM ####[facility] H[address]cusvb[address] [place], [place] [address]Dr. Rosemarieashley Otilio EGFR-NON AF CHILEAN 53 mL/min/1.73m2 Critically low >=60 [facility] Comment on above: Performed By: #### B MP, BNP, CMADM ####[facility] [address] [place], [place] [address]Dr. Nahed Yañez Glucose [Mass/Vol] 108 mg/dL Critically high 74-106 [facility] Comment on above: Performed By: #### B MP, BNP, CMADM ####[facility] Kzatyjgqrh94[address] [place] [address]Dr. Nahed Yañez Potassium [Moles/Vol] 4.1 mmol/L Normal 3.5-5.1 [facility] Comment on above: Performed By: #### B MP, BNP, CMADM ####[facility] I[address]wsc[address] [place], [place] [address]Dr. Nahed Yañez Sodium [Moles/Vol] 138 mmol/L Normal 136-145 [facility] Comment on above: Performed By: #### B MP, BNP, CMADM ####[facility] Jadtulzwjf36[address] [place] [address]Dr. Nahed Yañez Urea nitrogen [Mass/Vol] 9.0 mg/dL Normal 7.0-18.0 [facility] Comment on above: Performed By: #### B MP, BNP, CMADM ####[facility] [address] [place], [place] [address]Uj. Nahed Yañez Urea nitrogen/Creatinine [Mass ratio] 8.5 mg/mg Normal [facility] Comment on above: Performed By: #### B MP, BNP, CMADM ####[facility] Blav[address]mtjhx[address] [place], [place] [address]Qd. Naehd Yañez Cardiovascular Lab Reporton 11-03-2021 Cardiovascular Lab Report [facility] Patient Name: [facility] MR #: [id number] Physician: Gasper Avendano Department of M.D. Medicine Service Date: 11/02/2021 Division of Birthdate: 1960 Cardiology Room #: [id number] [facility] [place] [address] Cardiovascular Laboratory Report FINAL IMPRESSIONS: 1. Severe, [...] anterior descending coronary artery, placement of a 6-Ethiopian MynxGrip closure device. METHODS: After risks, benefits, and alternatives were explained, written informed consent was obtained. The patient was prepped and draped in usual sterile fashion over both groins. Using 1% lidocaine solution, local infiltration anesthesia was achieved over the right groin. Under ultrasound guidance, a micropuncture kit was used to access the right common femoral artery. This was upsized to a 6-Ethiopian 11 cm sheath. Angiography via the 6-Ethiopian sheath was performed. Bilateral selective coronary angiography was performed using JL4 and JR4 catheters. After reviewing the images, it was elected to proceed with an interventional procedure. A 6-Ethiopian XB3.5 guide catheter was advanced over a [...] artery, angiography was repeated initially using a 6-Ethiopian 3DRC catheter and subsequently using a 4-Ethiopian JR4 catheter. After administration of intracoronary nitroglycerin, the concerning lesion almost completely resolved. There was a residual mild stenosis. All catheters removed. A 6-Ethiopian MynxGrip closure device was deployed per protocol [...] and anatomy suitable for closure device. INDICATION: [id number] myocardial infarction. Electronically Signed by: Gasper Avendano M.D. 11/21/2021 02:07 P Gasper Avendano M.D (more content not included)... Normal The [facility] CBC COMPLETE BLOOD COUNTon 0 11-02-2021 Erythrocyte distribution width (RBC) [Ratio] 14.7 % Normal 11.5-15.[address] [facility] Comment on above: Order Comment: No: D o not add to previous draw Performed By: #### 3 5200, [id number] #### [facility] [address] [facility] Hematocrit (Bld) [Volume fraction] 34.5 % Low 36.0-45.[address] [facility] Comment on above: Order Comment: No: D o not add to previous draw Performed By: #### 3 4630, 67302 #### [facility] [address] [facility] [address], [facility] Hemoglobin (Bld) [Mass/Vol] 10.6 g/dL Low 12.0-15.[address] [facility] Comment on above: Order Comment: No: D o not add to previous draw Performed By: #### 3 5200, 92426 #### [facility] [address] [facility] [place] [id number], [facility] MCH (RBC) [Entitic mass] 28.1 pg Normal 27.0-33.[address] [facility] Comment on above: Order Comment: No: D o not add to previous draw Performed By: #### 3 0, 66122 #### [facility] [address] [place] [address], [facility] MCHC (RBC) [Mass/Vol] 30.7 g/dL Low 32.0-35.[address] [facility] Comment on above: Order Comment: No: D o not add to previous draw Performed By: #### 3 0, 92326 #### [facility] [address] [place] [address], [facility] MCV (RBC) [Entitic vol] 91.5 fL Normal 82.0-98.[address] [facility] Comment on above: Order Comment: No: D o not add to previous draw Performed By: #### 3 5199, 46172 #### [facility] [address] [place] [address], [facility] Nucleated RBC/100 WBC (Bld) [Ratio] 0 % Normal 0-[address] [facility] Comment on above: Order Comment: No: D o not add to previous draw Performed By: #### 3 5199, 60927 #### [facility] [address] [facility] [place] [address], [facility] PLAT CNT 219 10*3/uL Normal 150-[address] [facility] Comment on above: Order Comment: No: D o not add to previous draw Performed By: #### 3 5199, 02502 #### [facility] [address] [facility] [place] [address], [facility] RBC (Bld) [#/Vol] 3.77 10*6/uL Low 3.80-5.[address] [facility] Comment on above: Order Comment: No: D o not add to previous draw Performed By: #### 3 5199, 06598 #### [facility] [address] [place] [address], [facility] WBC (Bld) [#/Vol] 13.64 10*3/uL High 4.00-10.[address] [facility] Comment on above: Order Comment: No: D o not add to previous draw Performed By: #### 3 5200, 49194 #### [facility] [address] [place] [address], [facility] HEMOGLOBIN A1Con 11-02-2021 Glucose [Moles/Vol] 140 mmol/L Normal The [facility] Comment on above: Order Comment: No: D o not add to previous draw Performed By: #### 3 1791 #### [facility] [address] [place] [address], [facility] HbA1c (Bld) [Mass fraction] 6.5 % High 4.0-6.[address] [facility] Comment on above: Order Comment: No: D o not add to previous draw Performed By: #### 3 1791 #### [facility] [address] [place] [address], [place] LIPID PROFILEon 11-02-2021 Cholesterol [Mass/Vol] 171 mg/dL Normal 120-[address] [facility] Comment on above: Order Comment: No: D o not add to previous draw Result Comment: CHOL ESTEROL REFERENCE RANGE: 20 YEARS AND OLDER CARDIOVASCULAR RISK Less than 200 mg/dl Low Risk 200 to 239 mg/dl Borderline Risk 240 mg/dl and greater High Risk Performed By: #### 3 5200, 71786 #### [facility] [address] [place] [address], [facility] Cholesterol in HDL [Mass/Vol] 57 mg/dL Normal 23-[address] [facility] [...] High Risk Performed By: #### 3 5200, 06934 #### [facility] [address] [place] [address], [place] Cholesterol in LDL [Mass/Vol] 89 mg/dL Normal 0-[address] [facility] Comment on above: Order Comment: No: D o not add to previous draw Result Comment: LDL IS A CALCULATION LDL IS ONLY VALID IF THE TRIG IS LESS THAN 400. Performed By: #### 3 5200, 67456 #### [facility] [address] Cholesterol.total/Chol esterol in HDL [Mass ratio] 3.0 {ratio} Normal .0-4.[address] [facility] Comment on above: Order Comment: No: D o not add to previous draw Performed By: #### 3 5200, 85409 #### [facility] [address] NON-HDL CHOLESTEROL 114 mg/dL Normal The [facility] Comment on above: Order Comment: No: D o not add to previous draw Performed By: #### 3 5200, 00909 #### [facility] [address] Triglyceride [Mass/Vol] 124 mg/dL Normal 40-[address] [facility] Comment on above: Order Comment: No: D o not add to previous draw Result Comment: TRIG LYCERIDE REFERENCE RANGE: 20 YEARS AND OLDER CARDIOVASCULAR RISK LESS THAN 150 mg/dl LOW RISK 150 TO 199 mg/dl BORDERLINE RISK 200 mg/dl AND GREATER HIGH RISK Performed By: #### 3 5200, 08714 #### [facility] [address] [place] [address], [facility] VLDL CHOL 25 mg/dL Normal 0-[address] [facility] Comment on above: Order Comment: No: D o not add to previous draw Performed By: #### 3 5200, 24587 #### [facility] [address] TROPONIN-Ion 11-02-2021 Troponin I.cardiac [Mass/Vol] 0.14 ng/mL Critically high 0.00-0.[address] [facility] Comment on above: Result Comment: M-[place] EVIOUS CRITICAL RESULT REFERENCE RANGES: 0.00 - 0.04 ng/ml NORMAL 0.05 - 0.50 ng/ml INDETERMINATE > 0.50 ng/ml CONSISTENT WITH AN M.I. Performed By: #### 3 5200, 82104 #### [facility] [address] Troponin I.cardiac [Mass/Vol] 0.19 ng/mL Critically high 0.00-0.[address] [facility] Comment on above: Order Comment: No: D o not add to previous draw Result Comment: M-[place] EVIOUS CRITICAL RESULT REFERENCE RANGES: 0.00 - 0.04 ng/ml NORMAL 0.05 - 0.50 ng/ml INDETERMINATE > 0.50 ng/ml CONSISTENT WITH AN M.I. Performed By: #### 3 5200 #### [facility] [address] TYPE AND SCREENon 11-02-2021 ABO INTERPRETATION O Normal The [facility] Comment on above: Performed By: #### 3 5200, 25686 #### [facility] [address] [facility] [address], [facility] RH INTERPRETATION Positive Normal The [facility] Comment on above: Performed By: #### 3 5200, 77158 #### [facility] [address] [facility] UFH HEPARIN ASSAYon 11-03-19 22 UNFRACTIONATED HEPARIN 0.76 IU/mL High 0.30-0.[address] [facility] Comment on above: Result Comment: Clare roxaban and Apixaban will interfere with the anti Xa assay used to monitor UFH and LMWH. Performed By: #### 3 5200, 35920 #### [facility] [address] [place] [address], [facility] UNFRACTIONATED HEPARIN 0.96 IU/mL Critically high 0.30-0.[address] [facility] Comment on above: Result Comment: Resu lt checked and called. Accurately read back by Kathy Kralik RN at 0548 Rivaroxaban and Apixaban will interfere with the anti Xa assay used to monitor UFH and LMWH. Performed By: #### 3 0477 #### [facility] [address] APTTon 11-01-2021 aPTT Coag (Bld) [Time] 28.6 s Normal 25.0-35.[address] [facility] Comment [...] THIS PURPOSE. Performed By: #### 3 5200, 02672 #### [facility] [address] BNPon 11-01-2021 Natriuretic peptide B (Bld) [Mass/Vol] 9643.0 pg/mL Critically high <=900.0 [facility] Comment on above: Performed By: #### C MP, BNP, HSTROPN ####[facility] [address] [place] [address]DrShaun Nahed Yañez BNP (B-TYPE NATRIURETIC PEPT AYLEEN)on 11-01-2021 Natriuretic peptide B (Bld) [Mass/Vol] 768 pg/mL High 0-[address] [facility] Comment on above: Order Comment: No: D o not add to previous draw Result Comment: Give n the appropriate clinical setting a BNP result of >100 pg/mL indicates congestive heart failure. Performed By: #### 8 5123 #### [facility] [address] CBC AUTO DIFFon 11-01-2021 BASO # 0.0 103/ul Normal 0.0-0.1 [facility] Comment on above: Performed By: #### C BC ####[facility] F[address] [place] [address]Dr. Nahed Yañez Basophils/100 WBC (Bld) 0.1 % Critically low 0.2-2.0 The [facility] Comment on above: Performed By: #### C BC ####[facility] [address] [place] [address]Dr. Nahed Yañez EO # 0.0 103/ul Normal 0.0-0.7 The [facility] Comment on above: Performed By: #### C BC ####[facility] [address] [place], [place] [address]Dr. Nahed Yañez Eosinophils/100 WBC (Bld) 0.0 % Critically low 0.9-7.0 The [facility] Comment on above: Performed By: #### C BC ####[facility] [address] [place], [place] [address]Dr. Nahed Yañez Erythrocyte distribution width (RBC) [Ratio] 14.7 % Normal 11.0-15.0 The [facility] Comment on above: Performed By: #### C BC ####[facility] L[address] [place], [place] [address]Dr. Nahed Yañez Hematocrit (Bld) [Volume fraction] 36.1 % Normal 36.0-48.0 The [facility] Comment on above: Performed By: #### C BC ####[facility] [address] [place], [place] [address]Dr. Nahed Yañez Hemoglobin (Bld) [Mass/Vol] 11.1 g/dL Critically low 12.0-16.0 The [facility] Comment on above: Result Comment: IV a ntibiotics Performed By: #### C BC ####[facility] [address] [place], [place] [address]Dr. Rosemarieashley Otilio IG # 0.09 10e3/ul Critically high 0.00-0.03 [facility] Comment on above: Performed By: #### C BC ####[facility] X[address]xw[address] [place], [place] [address]Dr. Nahed Yañez IG % 0.7 % Critically high 0.0-0.5 The [facility] Comment on above: Performed By: #### C BC ####[facility] [address]ys[address] [place] [id number]. Nahed Otilio LYMPH # 0.6 103/ul Critically low 1.2-3.8 The [facility] Comment on above: Performed By: #### C BC ####[facility] Cmhvabkevt[address] [place] [phone]. Rosemarieashley Yañez Lymphocytes/100 WBC (Bld) 4.8 % Critically low 20.5-60.0 [facility] Comment on above: Performed By: #### C BC ####[facility] [address]whq[address] [place] [phone]. Nahed Yañez MANUAL DIFF REQ NO Normal [facility] Comment on above: Performed By: #### C BC ####[facility] Ymdtlnolpu39[address] [place] [phone]. Nahed Yañez MCH (RBC) [Entitic mass] 28.2 pg Normal 26.7-34.0 [facility] Comment on above: Performed By: #### C BC ####[facility] Hwheyxcdez50[address] [place] [phone]. Nahed Yañez MCHC (RBC) [Mass/Vol] 30.7 g/dL Normal 29.9-35.2 [facility] Comment on above: Performed By: #### C BC ####[facility] Xglcxkgphl9326 [place] [phone]. Nahed Yañez MCV (RBC) [Entitic vol] 91.9 fL Normal 81.0-99.0 The [facility] Comment on above: Performed By: #### C BC ####[facility] Ktstx[address]q8[address] [place] [phone]. Nahed Yañez MONO # 0.2 103/ul Critically low 0.3-0.8 The [facility] Comment on above: Performed By: #### C BC ####[facility] Wwcosgghta28[address] [place] [phone]. Nahed Yañez Monocytes/100 WBC (Bld) 1.7 % Normal 1.7-12.0 [facility] Comment on above: Performed By: #### C BC ####[facility] [address]wkf[address] [place], [place] [address]Ne. Nahed Yañez NEUT # 11.2 103/ul Critically high 1.4-6.5 The [facility] Comment on above: Performed By: #### C BC ####[facility] [address]exsgluej33[address] [place], [place] [address]Dk. Nahed Yañez Neutrophils/100 WBC (Bld) 92.7 % Critically high 43.0-75.0 The [facility] Comment on above: Performed By: #### C BC ####[facility] Wou[address]ufzmv50[address] [place] [phone]. Nahed Yañez Platelet mean volume (Bld) [Entitic vol] 11.1 fL Normal 9.5-13.5 The [facility] Comment on above: Performed By: #### C BC ####[facility] Xtdivdlxam06[address] [place] [phone]. Nahed Yañez PLT 213 103/ul Normal 150-450 The [facility] Comment on above: Performed By: #### C BC ####[facility] Tmvyfxockg2192 [place] [phone]. Nahed Yañez RBC 3.93 106/ul Critically low 4.20-5.40 The [facility] Comment on above: Performed By: #### C BC ####[facility] Oqgdlkgmuw2230 [place] [phone]. Nahed Yañez WBC 12.0 103/ul Critically high 4.0-11.0 The [facility] Comment on above: Performed By: #### C BC ####[facility] Reekvppdtm[address] [place] [phone]. Nahed Yañez CBC W/DIFFon 11-01-2021 ABS IMM GRANS 0.2 10*3/uL Normal 0.0-0.[address] [facility] Comment on above: Order Comment: No: D o not add to previous draw Performed By: #### 3 5230, 83556 #### [facility] [address] [place] [address], [place] ABS NEUTROPHILS 12.5 10*3/uL High 1.6-7.[address] [facility] Comment on above: Order Comment: No: D o not add to previous draw Performed By: #### 3 5200, 11768 #### [facility] [address] [place] [address], [facility] Basophils (Bld) [#/Vol] 0.0 10*3/uL Normal 0.0-0.[address] [facility] Comment on above: Order Comment: No: D o not add to previous draw Performed By: #### 3 5199, 19276 #### [facility] [address] [place] [address], [facility] Basophils/100 WBC (Bld) 0.0 % Normal 0.0-1.[address] [facility] Comment on above: Order Comment: No: D o not add to previous draw Performed By: #### 3 5199, 66232 #### [facility] [address] [place] [address], [facility] Eosinophils (Bld) [#/Vol] 0.0 10*3/uL Normal 0.0-0.[address] [facility] Comment on above: Order Comment: No: D o not add to previous draw Performed By: #### 3 5199, 22153 #### [facility] [address] [place] [address], [facility] Eosinophils/100 WBC (Bld) 0.0 % Normal 0.0-6.[address] [facility] Comment on above: Order Comment: No: D o not add to previous draw Performed By: #### 3 0, 17104 #### [facility] [address] [place] [address], [place] Erythrocyte distribution width (RBC) [Ratio] 14.6 % Normal 11.5-15.[address] [facility] Comment on above: Order Comment: No: D o not add to previous draw Performed By: #### 3 5199, 76217 #### [facility] [address] [facility] Hematocrit (Bld) [Volume fraction] 36.6 % Normal 36.0-45.[address] [facility] Comment on above: Order Comment: No: D o not add to previous draw Performed By: #### 3 5199, 05385 #### [facility] [address] [place] [address], [facility] Hemoglobin (Bld) [Mass/Vol] 11.4 g/dL Low 12.0-15.[address] [facility] Comment on above: Order Comment: No: D o not add to previous draw Performed By: #### 3 5199, 60604 #### [facility] [address] [place] [address], [facility] IMMATURE GRANS 1.2 % High 0.0-1.[address] [facility] Comment on above: Order Comment: No: D o not add to previous draw Performed By: #### 3 5199, 35855 #### [facility] [address] [facility] Lymphocytes (Bld) [#/Vol] 0.6 10*3/uL Low 1.2-4.[address] [facility] Comment on above: Order Comment: No: D o not add to previous draw Performed By: #### 3 5199, 18680 #### [facility] [address] [place] [address], [facility] Lymphocytes/100 WBC (Bld) 4.2 % Low 20.0-45.[address] [facility] Comment on above: Order Comment: No: D o not add to previous draw Performed By: #### 3 5199, 96712 #### [facility] [address] [place] [address], [facility] MCH (RBC) [Entitic mass] 28.2 pg Normal 27.0-33.[address] [facility] Comment on above: Order Comment: No: D o not add to previous draw Performed By: #### 3 5199, 89283 #### [facility] [address] [place] [address], [facility] MCHC (RBC) [Mass/Vol] 31.1 g/dL Low 32.0-35.[address] [facility] Comment on above: Order Comment: No: D o not add to previous draw Performed By: #### 3 0, 74307 #### [facility] [address] [place] [address], [facility] MCV (RBC) [Entitic vol] 90.6 fL Normal 82.0-98.[address] [facility] Comment on above: Order Comment: No: D o not add to previous draw Performed By: #### 3 5199, 13242 #### [facility] [address] [place] [id number], [facility] Monocytes (Bld) [#/Vol] 0.5 10*3/uL Normal 0.1-1.[address] [facility] Comment on above: Order Comment: No: D o not add to previous draw Performed By: #### 3 5199, 80755 #### [facility] [address] [facility] [place] [address], [facility] MONOS 3.3 % Low 5.0-12.[address] [facility] Comment on above: Order Comment: No: D o not add to previous draw Performed By: #### 3 5199, 67243 #### [facility] [address] [place] [address], [facility] Neutrophils/100 WBC (Bld) 91.3 % High 40.0-72.[address] [facility] Comment on above: Order Comment: No: D o not add to previous draw Performed By: #### 3 5199, 10087 #### [facility] [address] [place] [id number], [facility] Nucleated RBC/100 WBC (Bld) [Ratio] 0 % Normal 0-[address] [facility] Comment on above: Order Comment: No: D o not add to previous draw Performed By: #### 3 5200, 42339 #### [facility] [address] [place] [address], [facility] PLAT CNT 224 10*3/uL Normal 150-[address] [facility] Comment on above: Order Comment: No: D o not add to previous draw Performed By: #### 3 5200, 55205 #### [facility] [address] [place] [address], [facility] RBC (Bld) [#/Vol] 4.04 10*6/uL Normal 3.80-5.[address] [facility] Comment on above: Order Comment: No: D o not add to previous draw Performed By: #### 3 5200, 64824 #### [facility] [address] [place] [address], [facility] WBC (Bld) [#/Vol] 13.70 10*3/uL High 4.00-10.[address] [facility] Comment on above: Order Comment: No: D o not add to previous draw Performed By: #### 3 5200, 65586 #### [facility] [address] [place] [address], [facility] COMP METABOLIC PANELon 11-01 Albumin [Mass/Vol] 3.7 g/dL Normal 3.5-5.[address] [facility] Comment on above: Order Comment: No: D o not add to previous draw Performed By: #### 0 0121, 90546, 90985 #### [facility] [address] [place] [address], [facility] ALKALINE PHOSPH 54 IU/L Normal 34-[address] [facility] Comment on above: Order Comment: No: D o not add to previous draw Performed By: #### 0 0121, 89706, 15252 #### [facility] [address] [place] [address], [place] ALT [Catalytic activity/Vol] 12 U/L Normal 7-[address] [facility] Comment on above: Order Comment: No: D o not add to previous draw Performed By: #### 0 0121, 05750, 66447 #### [facility] [address] [place] [address], [place] AST [Catalytic activity/Vol] 17 U/L Normal 13-[address] [facility] Comment on above: Order Comment: No: D o not add to previous draw Performed By: #### 0 0121, 93001, 41512 #### [facility] [address] [place] [address], [place] Bilirubin [Mass/Vol] 0.3 mg/dL Normal 0.3-1.[address] [facility] Comment on above: Order Comment: No: D o not add to previous draw Performed By: #### 0 0121, 70330, 81147 #### [facility] [address] [place] [address], [place] Calcium [Mass/Vol] 9.4 mg/dL Normal 8.6-10.[address] [facility] Comment on above: Order Comment: No: D o not add to previous draw Performed By: #### 0 0121, 02844, 59854 #### [facility] [address] [place] [address], [place] Chloride [Moles/Vol] 100 mmol/L Normal 98-[address] [facility] Comment on above: Order Comment: No: D o not add to previous draw Performed By: #### 0 0121, 45442, 22108 #### [facility] [address] [place] [address], [place] CO2 [Moles/Vol] 29 mmol/L Normal 21-[address] [facility] Comment on above: Order Comment: No: D o not add to previous draw Performed By: #### 0 0121, 34588, 46932 #### [facility] [address] [place] [address], [place] Creatinine [Mass/Vol] 1.04 mg/dL Normal 0.60-1.[address] [facility] Comment on above: Order Comment: No: D o not add to previous draw Performed By: #### 0 0121, 65228, 62204 #### [facility] [address] [place] [address], [place] eGFR- non- 54 ml/min/1.73sq m Abnormal >[address] [facility] Comment on above: Order Comment: No: D o not add to previous draw Performed By: #### 0 0121, 60379, 98084 #### [facility] [address] [place] [address], [place] GFR/1.73 sq M.predicted among blacks MDRD (S/P/Bld) [Vol rate/Area] mL/min/{1.73_m2} Normal >[address] [facility] Comment on above: Order Comment: No: D o not add to previous draw Performed By: #### 0 0121, 00450, 85206 #### [facility] [address] [place] [address], [place] Glucose [Mass/Vol] 239 mg/dL High 70-[address] [facility] Comment on above: Order Comment: No: D o not add to previous draw Performed By: #### 0 0121, 03026, 51412 #### [facility] [address] [place] [address], [place] Potassium [Moles/Vol] 4.3 mmol/L Normal 3.5-5.[address] [facility] Comment on above: Order Comment: No: D o not add to previous draw Performed By: #### 0 0121, 98413, 29587 #### [facility] [address] [place] [address], [place] Protein [Mass/Vol] 5.6 g/dL Low 6.0-8.[address] [facility] Comment on above: Order Comment: No: D o not add to previous draw Performed By: #### 0 0121, 57286, 82831 #### [facility] [address] [place] [address], [facility] Sodium [Moles/Vol] 139 mmol/L Normal 136-[address] [facility] Comment on above: Order Comment: No: D o not add to previous draw Performed By: #### 0 0121, 36429, 07554 #### [facility] [address] [place] [address], [facility] Urea nitrogen [Mass/Vol] 24 mg/dL Normal 7-[address] [facility] Comment on above: Order Comment: No: D o not add to previous draw Performed By: #### 0 0121, 33707, 57636 #### [facility] [address] [place] [address], [facility] MAGNESIUM BLOODon 11-01-2021 Magnesium [Mass/Vol] 2.0 mg/dL Normal 1.9-2.[address] [facility] Comment on above: Order Comment: No: D o not add to previous draw Performed By: #### 0 0121, 06880, 11661 #### [facility] [address] [place] [address], [facility] PROF 14(COMP METB)on 022 Albumin [Mass/Vol] 3.1 g/dL Critically low 3.4-5.0 [facility] Comment on above: Performed By: #### C MP, BNP, HSTROPN ####[facility] [address] [place] [address]Dr. Nahed Yañez Albumin/Globulin [Mass ratio] 1.0 {ratio} Normal [facility] Comment on above: Performed By: #### C MP, BNP, HSTROPN ####[facility] Pbf[address] [place] [address]Dr. Nahed Yañez ALP [Catalytic activity/Vol] 56 U/L Normal 46-116 [facility] Comment on above: Performed By: #### C MP, BNP, HSTROPN ####[facility] Fmmevksskm[address] [place] [address]Dr. Nahed Yañez ALT [Catalytic activity/Vol] 19 U/L Normal 14-59 [facility] Comment on above: Performed By: #### C MP, BNP, HSTROPN ####[facility] Ojrsoljncb[address] [place] [address]Dr. Nahed Yañez Anion gap [Moles/Vol] 14.3 mmol/L Normal Th e [facility] Comment on above: Performed By: #### C MP, BNP, HSTROPN ####[facility] [address] [place], [place] [address]Dr. Nahed Yañez AST [Catalytic activity/Vol] 18 U/L Normal 15-37 [facility] Comment on above: Performed By: #### C MP, BNP, HSTROPN ####[facility] [address] [place], [place] [address]Dr. Nahed Yañez Bilirubin [Mass/Vol] 0.4 mg/dL Normal 0.2-1.0 [facility] Comment on above: Performed By: #### C MP, BNP, HSTROPN ####[facility] [address] [place], [place] [address]Dr. Nahed Yañez Calcium [Mass/Vol] 9.3 mg/dL Normal 8.5-10.1 [facility] Comment on above: Performed By: #### C MP, BNP, HSTROPN ####[facility] Uu[address]vwv[address] [place] [address]Dr. Nahed Yañez Chloride [Moles/Vol] 102 mmol/L Normal 98-107 The [facility] Comment on above: Performed By: #### C MP, BNP, HSTROPN ####[facility] [address] [place], [place] [address]Dr. Nahed Yañez CO2 [Moles/Vol] 27.1 mmol/L Normal 21.0-32.0 The [facility] Comment on above: Performed By: #### C MP, BNP, HSTROPN ####[facility] Ttcsdfqbgb[address] [place] [address]Dr. Nahed Yañez Creatinine [Mass/Vol] 1.25 mg/dL Critically high 0.55-1.02 [facility] Comment on above: Performed By: #### C MP, BNP, HSTROPN ####[facility] [address]fs[address] [place] [address]Dr. Nahed Yañez EGFR-AF CHILEAN 53 mL/min/1.73m2 Critically low >=60 [facility] Comment on above: Performed By: #### C MP, BNP, HSTROPN ####[facility] Bcpmcwqlgo[address] [place] [address]Dr. Nahed Yañez EGFR-NON AF CHILEAN 44 mL/min/1.73m2 Critically low >=60 [facility] Comment on above: Performed By: #### C MP, BNP, HSTROPN ####[facility] Hexvxkmukd[address] [place] [address]Dr. Nahed Yañez Globulin (S) [Mass/Vol] 3.2 g/dL Normal [facility] Comment on above: Performed By: #### C MP, BNP, HSTROPN ####[facility] Lxwzxntund58[address] [place] [address]Dr. Nahed Yañez Glucose [Mass/Vol] 248 mg/dL Critically high 74-106 [facility] Comment on above: Performed By: #### C MP, BNP, HSTROPN ####[facility] [address]zut[address]dfqoo[address] [place] [address]Dr. Nahed Yañez Potassium [Moles/Vol] 3.4 mmol/L Critically low 3.5-5.1 [facility] Comment on above: Performed By: #### C MP, BNP, HSTROPN ####[facility] Rgwmehzsbb[address] [place] [address]Dr. Rosemarielan Yañez Protein [Mass/Vol] 6.3 g/dL Critically low 6.4-8.2 [facility] Comment on above: Performed By: #### C MP, BNP, HSTROPN ####[facility] [address]watqis[address] [place] [address]Dr. Nahed Yañez Sodium [Moles/Vol] 140 mmol/L Normal 136-145 [facility] Comment on above: Performed By: #### C MP, BNP, HSTROPN ####[facility] [address] [place], [place] [address]Xh. Nahed Yañez Urea nitrogen [Mass/Vol] 18.0 mg/dL Normal 7.0-18.0 [facility] Comment on above: Performed By: #### C MP, BNP, HSTROPN ####[facility] [address]rwtu[address] [place], [place] [address]Np. Nahed Yañez Urea nitrogen/Creatinine [Mass ratio] 14.4 mg/mg Normal [facility] Comment on above: Performed By: #### C MP, BNP, HSTROPN ####[facility] [address]mtvsei[address] [place], [place] [address]Kh. Nahed Yañez PROTHROMBIN TIMEon 2 INR Coag (PPP) [Relative time] 1.06 {INR} Normal 0.91-1.16 [facility] Comment on above: Order Comment: No: [...] 1995;[id number]. Performed By: #### 5 6101 #### [facility] [address] PT Coag (PPP) [Time] 13.8 s Normal 12.3-14.[address] [facility] Comment on above: Order Comment: No: D o not add to previous draw Result Comment: ALL RESULTS MUST BE INTERPRETED WITH RESPECT TO BLOOD DRAWING ARTIFACT OR DILUTION ERROR OF ANTICOAGULANT AT THE TIME OF SAMPLING. Performed By: #### 5 6101 #### [facility] [address] [place] [address], [facility] TROPONIN, HIGH SENSITIVITYon 11-01-2021 HSTROP 1684.4 pg/mL Critically high 4.0-51.3 [facility] Comment on above: Result Comment: CUT- OFF POINTS HAVE BEEN ESTABLISHED BASED ON THE FOURTH UNIVERSAL DEFINITIONS OF MYOCARDIALINFARCTION. THE UPPER REFERENCE LIMIT (URL) OF TROPONIN, DEFINED THE 99TH PERCENTILE OFcTnI DISTRIBUTION IN A REFERENCE POPULATION, HAS BEEN CONFIRMED THE DECISION THRESHOLDFOR [place] DIAGNOSIS. Performed By: #### C MP, BNP, HSTROPN ####[facility] [address] [place] [address]DrShaun Yañez TROPONIN-Ion 11-01-2021 Troponin I.cardiac [Mass/Vol] 0.22 ng/mL Critically high 0.00-0.[address] [facility] [...] AN M.I. Performed By: #### 0 0121, 45956, 32351 #### [facility] [address] [place] [address], [facility] UFH HEPARIN ASSAYon 11-02-19 22 UNFRACTIONATED HEPARIN 0.55 IU/mL Normal 0.30-0.[address] [facility] Comment on above: Result Comment: Clare roxaban and Apixaban will interfere with the anti Xa assay used to monitor UFH and LMWH. Performed By: #### 3 5200, [id number] #### [facility] [address] [place] [address], [facility] BLOOD GASES BTYon 10-31-2021 02 MODE ROOM AIR Normal [facility] Comment on above: Performed By: #### A BG ####[facility] Gl[address]kxikj[address] [place] [address]Dr. Nahed Yñaez ALLENS TEST Positive Normal [facility] Comment on above: Performed By: #### A BG ####[facility] Zxqtodtlhf13[address] [place] [address]Dr. Nahed Yañez Base excess Calc (Bld) [Moles/Vol] 3.5 mmol/L Critically high -2.0-2.0 [facility] Comment on above: Performed By: #### A BG ####[facility] Nevfrwfqhu34[address] [place], [place] [address]Dr. Nahed Yañez BIPAP PRESSURE Normal [facility] Comment on above: Performed By: #### A BG ####[facility] Hbqbphcuep2876[address] [place], [place] [address]Dr. Nahed Yañez CO2 [Moles/Vol] 56.3 mmol/L Critically high 23.0-28.0 [facility] Comment on above: Performed By: #### A BG ####[facility] Qxsswbazgj[address] [place], [place] [address]Dr. Nahed Yañez CPAP Normal [facility] Comment on above: Performed By: #### A BG ####[facility] Fhrzqshtnz5064[address] [place], [place] [address]Dr. Nahed Yañez FIO2 Normal [facility] Comment on above: Performed By: #### A BG ####[facility] Obqmgrufle5606[address] [place], [place] [address]Dr. Nahed Yañez HCO3 (Bld) [Moles/Vol] 26.8 mmol/L Critically high 22.0-26 .0 [facility] Comment on above: Performed By: #### A BG ####[facility] Ucqljahwjw[address] [place], [place] [address]Dr. Nahed Yañez LPM Normal [facility] Comment on above: Performed By: #### A BG ####[facility] Xkazoapuvi[address] [place] [address]Dr. Nahed Yañez MINUTE VOLUME Normal [facility] Comment on above: Performed By: #### A BG ####[facility] Dzyiflreav67[address] [place] [address]Dr. Nahed Yañez Oxygen (Bld) [Partial pressure] 51.8 mm[Hg] Critically low 80.0-100.0 [facility] Comment on above: Performed By: #### A BG ####[facility] Fqimnhdsid8545[address] [place], [place] [address]Dr. Nahed Yañez Oxygen saturation in Blood 86.3 % Critically low 95.0-100.0 [facility] Comment on above: Performed By: #### A BG ####[facility] Pgcosrxjao2736[address] [place], [place] [address]Dr. Nahed Yañez PCO2 43.8 mmHg Normal 35.0-45.0 [facility] Comment on above: Performed By: #### A BG ####[facility] Dwoqmsaqpz2535[address] [place], [place] [address]Dr. Nahed Yañez PEEP [facility] Comment on above: Performed By: #### A BG ####[facility] Sghmnkezkw69[address] [place], [place] [address]Dr. Nahed Yañez pH (Bld) 7.415 [pH] Normal 7.350-7.450 [facility] Comment on above: Performed By: #### A BG ####[facility] Lkairirxeh[address] [place], [place] [address]Dr. Nahed Yañez PIP Normal [facility] Comment on above: Performed By: #### A BG ####[facility] Tglotjpych1778[address] [place], [place] [address]Dr. Nahed Yañez PS Normal [facility] Comment on above: Performed By: #### A BG ####[facility] Yzoigdjahc24[address] [place] [address]Dr. Nahed Yañez PUNCTURE SITE RR Normal [facility] Comment on above: Performed By: #### A BG ####[facility] Limjbsmmvq38[address] [place] [address]Dr. Nahed Yañez RATE Normal [facility] Comment on above: Performed By: #### A BG ####[facility] Rxxeecpxkp8033 [place] [address]Dr. Nahed Yañez VENT MODE Normal [facility] Comment on above: Performed By: #### A BG ####[facility] Ayhtvfbejm15[address] [place] [address]Dr. Nahed Yañez VT Normal [facility] Comment on above: Performed By: #### A BG ####[facility] Xevnagmfra9[address] [place] [address]Dr. Nahed Yañez BNPon 2 Natriuretic peptide B (Bld) [Mass/Vol] 52732.0 pg/mL Critically high <=900.0 [facility] Comment on above: Performed By: #### T 4, TSH, BNP, CMADM ####[facility] Mhwzcylrwa1902[address] [place], [place] [address]Dr. Nahed Yañez CARDIAC FRANCISCO 3-6on 2 CK [Catalytic activity/Vol] 91 U/L Normal 26-192 [facility] Comment on above: Performed By: #### C MREP ####[facility] Uewuhtloki0647[address] [place], [place] [address]Dr. Nahed Yañez CK.MB [Mass/Vol] 7.32 ng/mL Critically high <=3.60 [facility] Comment on above: Result Comment: test repeated critical value verified Performed By: #### C MREP ####[facility] Jwnqvyuuky[address] [place], [place] [address]Dr. Nahed Yañez HSTROP 2823.1 pg/mL Critically high 4.0-51.3 [facility] Comment on above: Result Comment: CUT- OFF POINTS HAVE BEEN ESTABLISHED BASED ON THE FOURTH UNIVERSAL DEFINITIONS OF MYOCARDIALINFARCTION. THE UPPER REFERENCE LIMIT (URL) OF TROPONIN, DEFINED THE 99TH PERCENTILE OFcTnI DISTRIBUTION IN A REFERENCE POPULATION, HAS BEEN CONFIRMED THE DECISION THRESHOLDFOR [place] DIAGNOSIS.test repeated critical value verified Performed By: #### C MREP ####[facility] [address]qjicj[address] [place] [id number]. Nahed Yañez CARDIAC FRANCISCO ADMITon 022 CK [Catalytic activity/Vol] 85 U/L Normal 26-192 [facility] Comment on above: Performed By: #### T 4, TSH, BNP, CMADM ####[facility] Hdixuvzwrh30[address] [place] [id number]. Rosemarieashley Yañez CK.MB [Mass/Vol] 6.44 ng/mL Critically high <=3.60 [facility] Comment on above: Performed By: #### T 4, TSH, BNP, CMADM ####[facility] Zoesybqjnu82[address] [place] [address]Dr. Nahed Otilio HSTROP 3194.8 pg/mL Critically high 4.0-51.3 The [facility] Comment on above: Result Comment: CUT- OFF POINTS HAVE BEEN ESTABLISHED BASED ON THE FOURTH UNIVERSAL DEFINITIONS OF MYOCARDIALINFARCTION. THE UPPER REFERENCE LIMIT (URL) OF TROPONIN, DEFINED THE 99TH PERCENTILE OFcTnI DISTRIBUTION IN A REFERENCE POPULATION, HAS BEEN CONFIRMED THE DECISION THRESHOLDFOR [place] DIAGNOSIS. Performed By: #### T 4, TSH, BNP, CMADM ####[facility] Tpuvbhgsqy[address] [place] [address]Dr. Rosemarieashley Yañez ANDRE 57 ng/mL Normal 9-82 [facility] Comment on above: Performed By: #### T 4, TSH, BNP, CMADM ####[facility] Fcofvwqdqi27[address] [place] [address]Dr. Nahed Otilio CBC AUTO DIFFon 10-31-2021 BASO # 0.0 103/ul Normal 0.0-0.1 [facility] Comment on above: Performed By: #### C BC ####[facility] Cewimytvnd[address] [place] [address]Dr. Rosemarieashley Yañez Basophils/100 WBC (Bld) 0.2 % Normal 0.2-2.0 [facility] Comment on above: Performed By: #### C BC ####[facility] Tmtanikjlc20[address] [place] [address]Dr. Nahed Yañez EO # 0.0 103/ul Normal 0.0-0.7 [facility] Comment on above: Performed By: #### C BC ####[facility] Xvwfjnvufo0104 [place] [address]Dr. Nahed Yañez Eosinophils/100 WBC (Bld) 0.1 % Critically low 0.9-7.0 [facility] Comment on above: Performed By: #### C BC ####[facility] Vpguvntnha0002[address] [place], [place] [address]Dr. Nahed Otilio Erythrocyte distribution width (RBC) [Ratio] 14.8 % Normal 11.0-15.0 [facility] Comment on above: Performed By: #### C BC ####[facility] Qyybthvujk3184[address] [place], [place] [address]Dr. Nahed Yañez Hematocrit (Bld) [Volume fraction] 44.4 % Normal 36.0-48.0 [facility] Comment on above: Performed By: #### C BC ####[facility] Swpsyxhbik042[address] [place], [place] [address]Dr. Nahed Yañez Hemoglobin (Bld) [Mass/Vol] 14.1 g/dL Normal 12.0-16.0 [facility] Comment on above: Performed By: #### C BC ####[facility] Bvwlbsqyjt7562[address] [place], [place] [address]Dr. Rosemarieashley Otilio IG # 0.04 10e3/ul Critically high 0.00-0.03 [facility] Comment on above: Performed By: #### C BC ####[facility] Ruvyyfxegm5924[address] [place], [place] [address]Dr. Nahed Yañez IG % 0.3 % Normal 0.0-0.5 [facility] Comment on above: Performed By: #### C BC ####[facility] Zoqqvnpaoi0424[address] [place], [place] [address]Dr. Nahed Yñaez LYMPH # 1.4 103/ul Normal 1.2-3.8 The [facility] Comment on above: Performed By: #### C BC ####[facility] Yvapkehhxb7087[address] [place], [place] [address]Dr. Nahed Yañez Lymphocytes/100 WBC (Bld) 10.4 % Critically low 20.5-60.0 [facility] Comment on above: Performed By: #### C BC ####[facility] Mdcwzwjupy[address] [place] [address]DrShaun Yañez MANUAL DIFF REQ NO Normal [facility] Comment on above: Performed By: #### C BC ####[facility] Uhdbovudne9429 [place] [address]DrShaun Yañez MCH (RBC) [Entitic mass] 28.1 pg Normal 26.7-34.0 [facility] Comment on above: Performed By: #### C BC ####[facility] Htcvppilpb8486[address] [place], [place] [address]DrShaun Yañez MCHC (RBC) [Mass/Vol] 31.8 g/dL Normal 29.9-35.2 [facility] Comment on above: Performed By: #### C BC ####[facility] Lkkoefxwwd5588[address] [place], [place] [address]DrShaun Yañez MCV (RBC) [Entitic vol] 88.4 fL Normal 81.0-99.0 [facility] Comment on above: Performed By: #### C BC ####[facility] Tmbcqjtorx258[address] [place], [place] [address]DrShaun Yañez MONO # 0.8 103/ul Normal 0.3-0.8 The [facility] Comment on above: Performed By: #### C BC ####[facility] Cxxqfuayer3256[address] [place], [place] [address]DrShaun Yañez Monocytes/100 WBC (Bld) 6.0 % Normal 1.7-12.0 [facility] Comment on above: Performed By: #### C BC ####[facility] Xmnllxinlk2565[address] [place], [place] [address]DrShaun Yañez NEUT # 10.9 103/ul Critically high 1.4-6.5 The [facility] Comment on above: Performed By: #### C BC ####[facility] Jsxfmlluwo5096[address] [place], [place] [address]DrShaun Yañez Neutrophils/100 WBC (Bld) 83.0 % Critically high 43.0-75.0 [facility] Comment on above: Performed By: #### C BC ####[facility] Fleiajbzld18[address] [place] [address]Dr. Nahed Yañez Platelet mean volume (Bld) [Entitic vol] 10.8 fL Normal 9.5-13.5 [facility] Comment on above: Performed By: #### C BC ####[facility] Hafmwpnkif[address] [place], [place] [id number]. Rosemarieashley Yañez PLT 402 103/ul Normal 150-450 [facility] Comment on above: Performed By: #### C BC ####[facility] Bgllocszul4846[address] [place], [place] [address]Dr. Rosemarieashley Yañez RBC 5.02 106/ul Normal 4.20-5.40 [facility] Comment on above: Performed By: #### C BC ####[facility] Iswrilfvqn4964[address] [place], [place] [address]Dr. Nahed Yañez WBC 13.1 103/ul Critically high 4.0-11.0 [facility] Comment on above: Performed By: #### C BC ####[facility] Owoxuegdry7385[address] [place], [place] [address]Dr. Nahed Yañez CTA CHEST WO W CONon 022 CTA CHEST WO W CON Normal [facility] CULTURE BLOODon 10-31-2021 Microscopic examination of blood, culture Culture Observations: NO GROWTH AT 5 DAYS. Normal [facility] Comment on above: Performed By: #### B LDCX2 ####[facility] Dsenorfshw7[address] [place], [place] [id number]. Nahed Yañez Microscopic examination of blood, culture Culture Observations: NO GROWTH AT 5 DAYS. Normal [facility] Comment on above: Performed By: #### B LDCX1 ####[facility] Mykqisvqmo6787[address] [place], [place] [address]Dr. Nahed Yañez Covid-19 PCR (CVDTB)on 10-13 SARS-CoV-2 (COVID-19) RNA MIRNA+probe Ql (Unsp spec) Not detected Normal NOT DETECTED [facility] Comment on above: Result Comment: When diagnostic [...] for this test is supported by the Pipe Testing Technician of Health and Human Service's declaration [...] longer be used). Performed By: #### Isabell [facility] ####[facility] Eclijcejqm5444[address] [place], [place] [address]Dr. Nahed Yañez ECHO LIMITED STUDYon 022 ECHO LIMITED STUDY Normal [facility] ER URINE PROFILEon 2 Bilirubin Ql (U) SMALL Abnormal NEGATIVE [facility] Comment on above: Performed By: #### YARELIS DOVE ####[facility] Hcfztbwtgl528[address] [place], [place] [address]Dr. Nahed Yañez Clarity (U) CLEAR Normal CLEAR [facility] Comment on above: Performed By: #### YARELIS DOVE ####[facility] Nesnhpmwrh5063[address] [place], [place] [address]Dr. Nahed Yañez Color (U) YELLOW Normal YELLOW The [facility] Comment on above: Performed By: #### YARELIS DOVE ####[facility] Zjpalitjdl8186[address] [place], [place] [address]Dr. Nahed Yañez ERUAHD A micrscopic examination will be performed if indicated. Normal [facility] Comment on above: Performed By: #### YARELIS DOVE ####[facility] Ogzaukkhsq038[address] [place], [place] [address]Dr. Nahed Yañez Glucose Ql (U) Negative Normal NEGATIVE The [facility] Comment on above: Performed By: #### Isidoro ALCARAZ UMICRO ####[facility] Uzehdoiurl4356[address] [place], [place] [address]Dr. Nahed Yañez Hemoglobin Ql (U) TRACE-INTACT Abnormal NEGATIVE [facility] Comment on above: Performed By: #### Isidoro ALCARAZ UMICRO ####[facility] Vjkbxzmhkz925[address] [place], [place] [address]Dr. Nahed Yañez Ketones Ql (U) 15 mg/dl Abnormal NEGATIVE [facility] Comment on above: Performed By: #### Isidoro ALCARAZ UMICRO ####[facility] Qqefhbadgq927[address] [place], [place] [address]Dr. Nahed Yañez LEUKOCYTES TRACE Abnormal NEGATIVE [facility] Comment on above: Performed By: #### Isidoro ALCARAZ UMICRO ####[facility] Eezmepxfns4242[address] [place], [place] [address]Dr. Nahed Yañez Nitrite Ql (U) Negative Normal NEGATIVE [facility] Comment on above: Performed By: #### Isidoro ALCARAZ UMICRO ####[facility] Nwsveyvgro7218[address] [place], [place] [address]Dr. Nahed Yañez pH (U) 6.5 [pH] Normal 5-9 [facility] Comment on above: Performed By: #### Isidoro ALCARAZ UMICRO ####[facility] Kciibxfbbw7885[address] [place], [place] [address]Dr. Nahed Yañez Protein (U) [Mass/Vol] 30 mg/dL Abnormal NEGAT JOSEPHINE/ TRACE [facility] Comment on above: Performed By: #### Isidoro ALCARAZ UMICRO ####[facility] Tzhzfkwpoc8015[address] [place], [place] [address]Dr. Nahed Yañez SPEC GRAVITY 1.025 Normal 1.005-<=1.02 5 [facility] Comment on above: Performed By: #### Isidoro ALCARAZ UMICRO ####[facility] Rcrzsbdfuy5979[address] [place], [place] [address]Dr. Nahed Yañez UR MICRO IND INDICATED Normal [facility] Comment on above: Performed By: #### YARELIS DOVE ####[facility] Sytjfoeudd5896[address] [place], [place] [address]Dr. Nahed Yañez Urobilinogen Qn (U) 0.2 {Alem'U}/dL Normal 0.2 - 1. 0 The [facility] Comment on above: Performed By: #### YARELIS DOVE ####[facility] Jlymypbffc8399[address] [place], [place] [address]Dr. Nahed Yañez INFLUENZA A AND B AGon 10-31 INFLUANEGH SEE BELOW Normal [facility] Comment on above: Result Comment: Nega tive for Flu A protein angiten. Infection due to Flu A cannot be ruled out. Flu A angiten in the sample may be below the detection limit of the test. Performed By: #### I NFLUAB ####[facility] Vlmbkhujuk6086[address] [place], [place] [address]Dr. Nahed Yañez INFLUBNEGH SEE BELOW Normal [facility] Comment on above: Result Comment: Nega tive for Flu B protein antigen. Infection due to Flu B cannot be ruled out. Flu B antigen in the sample may be below the detection limit of the test. Performed By: #### I NFLUAB ####[facility] Acnkdcfjbr2697[address] [place], [place] [address]Dr. Nahed Yañez INFLUENZA A AG Negative Normal NEGATIVE SEE COMMENT [facility] Comment on above: Performed By: #### I NFLUAB ####[facility] Inwrohynfr5764[address] [place], [place] [address]Dr. Nahed Yañez INFLUENZA B AG Negative Normal NEGATIVE SEE COMMENT The [facility] Comment on above: Performed By: #### I NFLUAB ####[facility] Plyuamjstm7827[address] [place], [place] [address]Dr. Nahed Yañez INTERNAL CONTROLS Within Normal Limits Normal Wi thin Normal Limits The [facility] Comment on above: Performed By: #### I NFLUAB ####[facility] Xbxflyqokb877[address] [place], [place] [address]Dr. Nahed Yañez LACTATE/LACTIC ACIDon 2021 Lactate [Moles/Vol] 1.3 mmol/L Normal 0.4-1.9 [facility] Comment on above: Performed By: #### L ACT ####[facility] Ehlkstgbtm[address] [place], [place] [address]Dr. Nahed Yañez PROF 14(COMP METB)on 022 Albumin [Mass/Vol] 4.3 g/dL Normal 3.4-5.0 [facility] Comment on above: Performed By: #### C MP ####[facility] Lqhodhoixp5126[address] [place], [place] [address]Dr. Nahed Yañez Albumin/Globulin [Mass ratio] 1.2 {ratio} Normal [facility] Comment on above: Performed By: #### C MP ####[facility] Nlqomndqhi106[address] [place], [place] [address]Dr. Nahed Yañez ALP [Catalytic activity/Vol] 77 U/L Normal 46-116 [facility] Comment on above: Performed By: #### C MP ####[facility] Faotbqrfsl3753[address] [place], [place] [address]Dr. Nahed Yañez ALT [Catalytic activity/Vol] 25 U/L Normal 14-59 [facility] Comment on above: Performed By: #### C MP ####[facility] Gfphhwyvir836[address] [place], [place] [address]Dr. Nahed Yañez Anion gap [Moles/Vol] 15.6 mmol/L Normal [facility] Comment on above: Performed By: #### C MP ####[facility] Mwitvgwmvq2507[address] [place], [place] [address]Dr. Nahed Yañez AST [Catalytic activity/Vol] 26 U/L Normal 15-37 [facility] Comment on above: Performed By: #### C MP ####[facility] Dgoansmxvi5199[address] [place], [place] [address]Dr. Nahed Yañez Bilirubin [Mass/Vol] 0.6 mg/dL Normal 0.2-1.0 [facility] Comment on above: Performed By: #### C MP ####[facility] Jromssebso364[address] [place], [place] [address]Dr. Nahed Yañez Calcium [Mass/Vol] 10.0 mg/dL Normal 8.5-10.1 [facility] Comment on above: Performed By: #### C MP ####[facility] Wdnfdqwvll65[address] [place] [address]Dr. Nahed Yañez Chloride [Moles/Vol] 101 mmol/L Normal 98-107 [facility] Comment on above: Performed By: #### C MP ####[facility] Msnkmczbdc3659 [place] [address]Dr. Nahed Yañez CO2 [Moles/Vol] 29.0 mmol/L Normal 21.0-32.0 [facility] Comment on above: Performed By: #### C MP ####[facility] Yhsisgzlwm02[address] [place], [place] [address]Dr. Nahed Yañez Creatinine [Mass/Vol] 0.89 mg/dL Normal 0.55-1.02 [facility] Comment on above: Performed By: #### C MP ####[facility] Ttwhulvbvs[address] [place], [place] [address]Dr. Nahed Yañez EGFR-AF CHILEAN >60 Normal >=60 [facility] Comment on above: Performed By: #### C MP ####[facility] Dwayhtrmdk8178[address] [place], [place] [address]Dr. Nahed Yañez EGFR-NON AF CHILEAN >60 Normal >=60 [facility] Comment on above: Performed By: #### C MP ####[facility] Missqvlfyl23[address] [place] [address]Dr. Nahed Yañez Globulin (S) [Mass/Vol] 3.7 g/dL Normal [facility] Comment on above: Performed By: #### C MP ####[facility] Dkytitcqvk7907 [place] [address]Dr. Nahed Otilio Glucose [Mass/Vol] 182 mg/dL Critically high 74-106 [facility] Comment on above: Performed By: #### C MP ####[facility] Lzswvbphsg7[address] [place] [address]Dr. Nahed Yañez Potassium [Moles/Vol] 3.6 mmol/L Normal 3.5-5.1 [facility] Comment on above: Performed By: #### C MP ####[facility] Kjufyhordr[address] [place] [address]Dr. Nahed Yañez Protein [Mass/Vol] 8.0 g/dL Normal 6.4-8.2 [facility] Comment on above: Performed By: #### C MP ####[facility] Yondswaihw99[address] [place] [address]Dr. Nahed Yañez Sodium [Moles/Vol] 142 mmol/L Normal 136-145 [facility] Comment on above: Performed By: #### C MP ####[facility] Efdntpcazf6[address] [place] [address]Dr. Nahed Yañez Urea nitrogen [Mass/Vol] 8.0 mg/dL Normal 7.0-18.0 [facility] Comment on above: Performed By: #### C MP ####[facility] Uycnolvsmj67[address] [place], [place] [address]Dr. Nahed Yañez Urea nitrogen/Creatinine [Mass ratio] 9.0 mg/mg Normal [facility] Comment on above: Performed By: #### C MP ####[facility] Pecckdgbgu[address] [place] [address]Dr. Nahed Yañez T4on 10-31-2021 T4 [Mass/Vol] 8.10 ug/dL Normal 4.80-13.90 [facility] Comment on above: Performed By: #### T 4, TSH, BNP, CMADM ####[facility] Untbjikjdu[address] [place] [address]Dr. Nahed Yañez TSHon 10-31-2021 TSH 1.088 uIU/mL Normal 0.358-3.740 [facility] Comment on above: Performed By: #### T 4, TSH, BNP, CMADM ####[facility] W[address]wvxdyfnn[address] [place] [address]Dr. Nahed Yañez URINE MICROSCOPIC ONLYon BACTERIA TRACE Abnormal NONE SEEN The [facility] Comment on above: Performed By: #### E YARELIS ALCARAZ ####[facility] Sowrqgigjd[address] [place] [address]Dr. Nahed Yañez Bacteria identified Cx Nom (U) NOT INDICATED Normal [facility] Comment on above: Performed By: #### YARELIS DOVE ####[facility] Tdegexhujb[address] [place], [place] [address]Dr. Nahed Yañez CAST NONE SEEN Normal NONE SEEN The [facility] Comment on above: Performed By: #### NUNU DOVERO ####[facility] Uiasvmnose7[address] [place], [place] [address]Dr. Nahed Yañez Crystals LM Nom (Urine sed) NONE SEEN Normal NONE SEEN The [facility] Comment on above: Performed By: #### YARELIS DOVE ####[facility] Jhmgigbv[address] [place], [place] [address]Dr. Nahed Yañez Epithelial cells LM Ql (Urine sed) MODERATE Abnormal NONE SEEN /RARE The [facility] Comment on above: Performed By: #### NUNU DOVERO ####[facility] Zrvyoyjmam[address] [place], [place] [address]Dr. Nahed Yañez MUCOUS SMALL Abnormal NONE SEEN The [facility] Comment on above: Performed By: #### NUNU DOVERO ####[facility] Xqejxveztb[address] [place], [place] [address]Dr. Nahed Yañez RBC 2-5 Abnormal 0-2 The [facility] Comment on above: Performed By: #### NUNU DOVERO ####[facility] Hnfeydqywx[address] [place], [place] [address]Dr. Nahed Yañez WBC 2-5 Abnormal NONE SEEN The [facility] Comment on above: Performed By: #### NUUN DOVERO ####[facility] Cccqelrfrk[address] [place], [place] [address]Dr. Nahed Yañez XR CHEST 2 Von 10-31-2021 XR CHEST 2 V Normal The [facility] CULTURE URINEon 10-30-2021 CULTURE URINE Culture Observations : MODERATE GROWTH OF MIXED GENITAL MIGUEL. NO POTENTIAL PATHOGENS SEEN. Normal The [facility] Comment on above: Performed By: #### U RCX ####[facility] W[address] [place] [id number]. Nahed Yañez US JESSEE DOP LEG BILon US JESSEE DOP LEG MOHAN Normal The [facility] CARDIAC FRANCISCO ADMITon 022 CK [Catalytic activity/Vol] 16 U/L Critically low 26-192 [facility] Comment on above: Performed By: #### C RENZO, CMADM ####[facility] [address] [place] [address]Dr. Nahed Yañez CK.MB [Mass/Vol] 0.56 ng/mL Normal <=3.60 The [facility] Comment on above: Performed By: #### C RENZO, ERICK ####[facility] Zfogfrswls[address] [place] [address]Dr. Nahed Yañez HSTROP 44.3 pg/mL Normal 4.0-51.3 The [facility] Comment on above: Result Comment: CUT- OFF POINTS HAVE BEEN ESTABLISHED BASED ON THE FOURTH UNIVERSAL DEFINITIONS OF MYOCARDIALINFARCTION. THE UPPER REFERENCE LIMIT (URL) OF TROPONIN, DEFINED THE 99TH PERCENTILE OFcTnI DISTRIBUTION IN A REFERENCE POPULATION, HAS BEEN CONFIRMED THE DECISION THRESHOLDFOR [place] DIAGNOSIS. Performed By: #### C ERICK MULLER ####[facility] [address]imuvluf[address] [place] [address]Dr. Nahed Yañez ANDRE 42 ng/mL Normal 9-82 The [facility] Comment on above: Performed By: #### C RENZO, GRISELDADM ####[facility] Fnseimpyxb[address] [place] [address]Dr. Nahed Yañez CBC AUTO DIFFon 09-07-2021 BASO # 0.0 103/ul Normal 0.0-0.1 The [facility] Comment on above: Performed By: #### C BC ####[facility] Dmwxyfwsru[address] [place] [address]Dr. Nahed Yañez Basophils/100 WBC (Bld) 0.4 % Normal 0.2-2.0 The [facility] Comment on above: Performed By: #### C BC ####[facility] Zuliepcxty25[address] [place] [address]Dr. Nahed Yañez EO # 0.2 103/ul Normal 0.0-0.7 [facility] Comment on above: Performed By: #### C BC ####[facility] Jpvzelhyou[address] [place] [address]Dr. Nahed Yañez Eosinophils/100 WBC (Bld) 2.4 % Normal 0.9-7.0 [facility] Comment on above: Performed By: #### C BC ####[facility] Ljayhvjpvj8995 [place] [address]Dr. Nahed Yañez Erythrocyte distribution width (RBC) [Ratio] 15.1 % Critically high 11.0-15.0 [facility] Comment on above: Performed By: #### C BC ####[facility] Jsqtsehonq1874[address] [place], [place] [address]Dr. Nahed Yañez Hematocrit (Bld) [Volume fraction] 42.6 % Normal 36.0-48.0 [facility] Comment on above: Performed By: #### C BC ####[facility] Tecpciadhx7[address] [place], [place] [address]Dr. Nahed Yañez Hemoglobin (Bld) [Mass/Vol] 13.4 g/dL Normal 12.0-16.0 The [facility] Comment on above: Performed By: #### C BC ####[facility] Qmzglqzbet32[address] [place], [place] [address]Dr. Nahed Yañez IG # 0.33 10e3/ul Critically high 0.00-0.03 [facility] Comment on above: Performed By: #### C BC ####[facility] Ytumgmizqy0196[address] [place], [place] [address]Dr. Nahed Yañez IG % 3.9 % Critically high 0.0-0.5 The [facility] Comment on above: Performed By: #### C BC ####[facility] Aegftufnir[address]86[address] [place], [place] [address]Dr. Nahed Yañez LYMPH # 2.6 103/ul Normal 1.2-3.8 The [facility] Comment on above: Performed By: #### C BC ####[facility] Jfblmscavs[address]14[address] [place], [place] [address]Dr. Nahed Yañez Lymphocytes/100 WBC (Bld) 30.3 % Normal 20.5-60.0 [facility] Comment on above: Performed By: #### C BC ####[facility] Kxtnauvcmv[address] [place] [address]DrShaun Yañez MANUAL DIFF REQ NO Normal [facility] Comment on above: Performed By: #### C BC ####[facility] Lzufhvgqxh6235 [place] [address]Dr. Nahed Yañez MCH (RBC) [Entitic mass] 28.6 pg Normal 26.7-34.0 [facility] Comment on above: Performed By: #### C BC ####[facility] Qftgecjsyk034[address] [place], [place] [address]Dr. Nahed Yañez MCHC (RBC) [Mass/Vol] 31.5 g/dL Normal 29.9-35.2 The [facility] Comment on above: Performed By: #### C BC ####[facility] Msjefdbrks[address] [place], [place] [address]DrShaun Yañez MCV (RBC) [Entitic vol] 90.8 fL Normal 81.0-99.0 The [facility] Comment on above: Performed By: #### C BC ####[facility] Teehflaveg8[address] [place], [place] [address]DrShaun Yañez MONO # 0.7 103/ul Normal 0.3-0.8 [facility] Comment on above: Performed By: #### C BC ####[facility] Cxthxrgbsc0558[address] [place], [place] [address]DrShaun Yañez Monocytes/100 WBC (Bld) 8.0 % Normal 1.7-12.0 The [facility] Comment on above: Performed By: #### C BC ####[facility] Swxnsqukrl1588[address] [place], [place] [address]DrShaun Yañez NEUT # 4.7 103/ul Normal 1.4-6.5 The [facility] Comment on above: Performed By: #### C BC ####[facility] Soylbkrzxg[address]34[address] [place], [place] [address]DrShaun Yañez Neutrophils/100 WBC (Bld) 55.0 % Normal 43.0-75.0 [facility] Comment on above: Performed By: #### C BC ####[facility] Xhbgqcsttg2778 [place] [address]DrShaun Yañez Platelet mean volume (Bld) [Entitic vol] 8.9 fL Critically low 9.5-13.5 [facility] Comment on above: Performed By: #### C BC ####[facility] Qjomtppjnp[address] [place] [address]DrShaun Yañez PLT 270 103/ul Normal 150-450 [facility] Comment on above: Performed By: #### C BC ####[facility] Ijdqcggxon7038[address] [place], [place] [address]Dr. Nahed Yañez RBC 4.69 106/ul Normal 4.20-5.40 [facility] Comment on above: Performed By: #### C BC ####[facility] Achcqegbrl253[address] [place], [place] [address]DrShaun Yañez WBC 8.5 103/ul Normal 4.0-11.0 [facility] Comment on above: Performed By: #### C BC ####[facility] Vdfaahvcum[address] [place], [place] [address]DrShaun Yañez PROF 14(COMP METB)on 022 Albumin [Mass/Vol] 2.7 g/dL Critically low 3.4-5.0 [facility] Comment on above: Performed By: #### C ERICK MULLER ####[facility] Qmlbjphlcy7[address] [place], [place] [address]DrShaun Yañez Albumin/Globulin [Mass ratio] 0.8 {ratio} Normal [facility] Comment on above: Performed By: #### C ERICK MULLER ####[facility] Btlznxqkqr8732[address] [place], [place] [address]DrShaun Yañez ALP [Catalytic activity/Vol] 65 U/L Normal 46-116 [facility] Comment on above: Performed By: #### C ERICK MULLER ####[facility] Qjkltaytxb0955[address] [place], [place] [address]DrShaun Yañez ALT [Catalytic activity/Vol] 27 U/L Normal 14-59 The [facility] Comment on above: Performed By: #### C ERICK MULLER ####[facility] Soiybgynnc9[address] [place], [place] [address]Dr. Nahed Yañez Anion gap [Moles/Vol] 10.3 mmol/L Normal [facility] Comment on above: Performed By: #### C ERICK MULLER ####[facility] Gwcawcjxgw[address] [place], [place] [address]Dr. Nhaed Yañez AST [Catalytic activity/Vol] 11 U/L Critically low 15-37 [facility] Comment on above: Performed By: #### C ERICK MULLER ####[facility] Hlnlhkydpb[address] [place], [place] [address]Dr. Nahed Yañez Bilirubin [Mass/Vol] 0.3 mg/dL Normal 0.2-1.0 [facility] Comment on above: Performed By: #### C ERICK MULLER ####[facility] Fdfqcagtku3764[address] [place], [place] [address]Dr. Nahed Yañez Calcium [Mass/Vol] 8.1 mg/dL Critically low 8.5-10.1 [facility] Comment on above: Performed By: #### C ERICK MULLER ####[facility] Ldssjainoc[address] [place], [place] [address]Dr. Nahed Yañez Chloride [Moles/Vol] 98 mmol/L Normal 98-107 [facility] Comment on above: Performed By: #### C ERICK MULLER ####[facility] Rzxpowsyoh[address] [place], [place] [address]Dr. Nahed Yañez CO2 [Moles/Vol] 32.5 mmol/L Critically high 21.0-32.0 The [facility] Comment on above: Performed By: #### C ERICK MULLER ####[facility] X[address]frydqtj[address] [place], [place] [address]Dr. Nahed Yañez Creatinine [Mass/Vol] 0.94 mg/dL Normal 0.55-1.02 [facility] Comment on above: Performed By: #### C ERICK MULLER ####[facility] [address]fx[address]zjt[address] [place] [phone]. Nahed Yañez EGFR-AF CHILEAN >60 Normal >=60 [facility] Comment on above: Performed By: #### C RENZO, CMAJOSE ####[facility] [address]re[address] [place] [phone]. Nahed Yañez EGFR-NON AF CHILEAN >60 Normal >=60 [facility] Comment on above: Performed By: #### C RENZO, CMAJOSE ####[facility] Ubzzyfxhyx9[address] [place] [phone]. Nahed Yañez Globulin (S) [Mass/Vol] 3.2 g/dL Normal [facility] Comment on above: Performed By: #### C RENZO, CMAJOSE ####[facility] Awpjlfgsbn1706 [place] [address]Dr. Nahed Yañez Glucose [Mass/Vol] 123 mg/dL Critically high 74-106 [facility] Comment on above: Performed By: #### C RENZO, CMAJOSE ####[facility] Euyjehldko[address] [place] [address]Dr. Nahed Yañez Potassium [Moles/Vol] 3.8 mmol/L Normal 3.5-5.1 [facility] Comment on above: Performed By: #### C RENZO, CMADM ####[facility] Ipcnuviake8[address] [place] [address]Dr. Nahed Yañez Protein [Mass/Vol] 5.9 g/dL Critically low 6.1-8.2 [facility] Comment on above: Performed By: #### C RENZO, CMADM ####[facility] Npqhfnzbfn[address] [place] [address]Dr. Nahed Yañez Sodium [Moles/Vol] 137 mmol/L Normal 136-145 [facility] Comment on above: Performed By: #### C RENZO, CMADM ####[facility] Nircndoadt75[address] [place] [address]Dr. Nahed Yañez Urea nitrogen [Mass/Vol] 20.0 mg/dL Critically high 7.0-18.0 [facility] Comment on above: Performed By: #### C RENZO, CMADM ####[facility] Iqdngepvch[address] [place], [place] [address]Dr. Nahed Yañez Urea nitrogen/Creatinine [Mass ratio] 21.3 mg/mg Normal The [facility] Comment on above: Performed By: #### C MP, CMADM ####[facility] Mcsfchshbg230[address] [place], [place] [address]Dr. Nahed Yañez BNPon 09-06-2021 Natriuretic peptide B (Bld) [Mass/Vol] 923.0 pg/mL Critically high <=900.0 [facility] Comment on above: Performed By: #### B MP, BNP, HSTROPN ####[facility] Qttcaliaip0534[address] [place], [place] [address]Dr. Nahed Yañez CBC AUTO DIFFon 09-06-2021 BASO # 0.1 103/ul Normal 0.0-0.1 [facility] Comment on above: Performed By: #### C BC ####[facility] Mzdstepfsp22[address] [place], [place] [address]Dr. Nahed Yañez Basophils/100 WBC (Bld) 0.6 % Normal 0.2-2.0 [facility] Comment on above: Performed By: #### C BC ####[facility] Sxjccycksr7[address] [place], [place] [address]Dr. Nahed Yañez EO # 0.3 103/ul Normal 0.0-0.7 [facility] Comment on above: Performed By: #### C BC ####[facility] Cqkcmyesgb[address] [place], [place] [address]Dr. Nahed Yañez Eosinophils/100 WBC (Bld) 3.0 % Normal 0.9-7.0 The [facility] Comment on above: Performed By: #### C BC ####[facility] Dyvfrjnxjc[address] [place], [place] [address]Dr. Nahed Yañez Erythrocyte distribution width (RBC) [Ratio] 15.0 % Normal 11.0-15.0 The [facility] Comment on above: Performed By: #### C BC ####[facility] Nyygbrlbjk20[address] [place], [place] [address]Dr. Nahed Yañez Hematocrit (Bld) [Volume fraction] 48.1 % Critically high 36.0-48.0 The [facility] Comment on above: Performed By: #### C BC ####[facility] Pygzbbhxzs65[address] [place] [address]Dr. Nahed Yañez Hemoglobin (Bld) [Mass/Vol] 15.5 g/dL Normal 12.0-16.0 [facility] Comment on above: Result Comment: delt a check called to Manisha WALKER Performed By: #### C BC ####[facility] Gbyrtywvsh[address] [place] [address]Dr. Nahed Yañez IG # 0.46 10e3/ul Critically high 0.00-0.03 [facility] Comment on above: Performed By: #### C BC ####[facility] Yksflcskqv09[address] [place] [address]Dr. Nahed Yañez IG % 4.2 % Critically high 0.0-0.5 The [facility] Comment on above: Performed By: #### C BC ####[facility] Nvcqppxhxq6[address] [place] [address]Dr. Nahed Yañez LYMPH # 2.2 103/ul Normal 1.2-3.8 The [facility] Comment on above: Performed By: #### C BC ####[facility] Ybfiavxzvc33[address] [place] [address]Dr. Nahed Yañez Lymphocytes/100 WBC (Bld) 20.6 % Normal 20.5-60.0 [facility] Comment on above: Performed By: #### C BC ####[facility] Gupwxidyew[address] [place] [address]Dr. Nahed Yañez MANUAL DIFF REQ NO Normal [facility] Comment on above: Performed By: #### C BC ####[facility] Fokiwumomz4656 [place] [address]Dr. Nahed Yañez MCH (RBC) [Entitic mass] 28.2 pg Normal 26.7-34.0 [facility] Comment on above: Performed By: #### C BC ####[facility] Echsgiqqrn0102 [place] [phone]. Nahed Yañez MCHC (RBC) [Mass/Vol] 32.2 g/dL Normal 29.9-35.2 [facility] Comment on above: Performed By: #### C BC ####[facility] Jegrxdrwof8228 [place] [phone]. Nahed Yañez MCV (RBC) [Entitic vol] 87.5 fL Normal 81.0-99.0 [facility] Comment on above: Performed By: #### C BC ####[facility] Zoadmlgjpp35[address] [place] [phone]. Nahed Yañez MONO # 0.7 103/ul Normal 0.3-0.8 [facility] Comment on above: Performed By: #### C BC ####[facility] Aqxcjfncji3004 [place] [phone]. Nahed Yañez Monocytes/100 WBC (Bld) 6.4 % Normal 1.7-12.0 [facility] Comment on above: Performed By: #### C BC ####[facility] Lvoexpfcot7418 [place] [phone]. Nahed Yañez NEUT # 7.1 103/ul Critically high 1.4-6.5 The [facility] Comment on above: Performed By: #### C BC ####[facility] Pnvbeqasak3399 [place] [phone]. Nahed Yañez Neutrophils/100 WBC (Bld) 65.2 % Normal 43.0-75.0 [facility] Comment on above: Performed By: #### C BC ####[facility] Kelrzdgver4471 [place] [phone]. Nahed Yañez Platelet mean volume (Bld) [Entitic vol] 8.9 fL Critically low 9.5-13.5 [facility] Comment on above: Performed By: #### C BC ####[facility] Iyzjmlporb4279 [place] [phone]. Nahed Otilio PLT 390 103/ul Normal 150-450 [facility] Comment on above: Performed By: #### C BC ####[facility] Tpfulhtfxl8304 [place], [place] [address]Zw. Nahed Yañez RBC 5.50 106/ul Critically high 4.20-5.40 The [facility] Comment on above: Performed By: #### C BC ####[facility] Guwmlnoctp2740 [place] [phone]. Nahed Yañez WBC 10.8 103/ul Normal 4.0-11.0 [facility] Comment on above: Performed By: #### C BC ####[facility] Trrvgazxno5241 [place] [phone]. Nahed Yañez CULTURE BLOODon 09-06-2021 Microscopic examination of blood, culture Culture Observations: NO GROWTH AT 5 DAYS. Isolate 1 BC_BA_NA Normal [facility] Comment on above: Performed By: #### B LDCX2 ####[facility] Mtggakbhlr7[address] [place] [phone]. Nahed Yañez Microscopic examination of blood, culture Culture Observations: NO GROWTH AT 5 DAYS. Normal The [facility] Comment on above: Performed By: #### B LDCX1 ####[facility] Rppwhwmlsj1442 [place] [phone]. Nahed Yañez Covid-19 PCR ([facility]on 08-13 SARS-CoV-2 (COVID-19) RNA MIRNA+probe Ql (Unsp spec) Not detected Normal NOT DETECTED The [facility] Comment on above: Result Comment: When diagnostic [...] for this test is supported by the Pipe Testing Technician of Health and Human Service's declaration [...] be used). Performed By: #### C VDTBH ####[facility] Qnqtstgznf4848 [place] [address]Dr. Nahed Yañez LACTATE/LACTIC ACIDon 2021 Lactate [Moles/Vol] 0.1 mmol/L Critically low 0.4-2.0 [facility] Comment on above: Performed By: #### L ACT ####[facility] Dflhipmvhv5514 [place] [address]Dr. Nahed Yañez Lactate [Moles/Vol] 1.5 mmol/L Normal 0.4-2.0 [facility] Comment on above: Performed By: #### L ACT ####[facility] Y[address]epzadxp[address] [place], [place] [address]Dr. Nahed Yañez POINT OF CARE GLUCOSEon 08-13 Glucose [Mass/Vol] 201 mg/dL Critically high 74-106 [facility] Comment on above: Performed By: #### P OCGLUC ####[facility] Lxdlqusmeo8[address] [place], [place] [address]Dr. Nahed Yañez PROF CHEM 8 (BAS METB)on Anion gap [Moles/Vol] 14.8 mmol/L Normal [facility] Comment on above: Performed By: #### B MP, BNP, HSTROPN ####[facility] Bhdgqpmqaa5036 [place] [address]Dr. Nahed Yañez Calcium [Mass/Vol] 8.8 mg/dL Normal 8.5-10.1 [facility] Comment on above: Performed By: #### B MP, BNP, HSTROPN ####[facility] Lebdzbossk[address] [place], [place] [address]Dr. Nahed Yañez Chloride [Moles/Vol] 95 mmol/L Critically low 98-107 [facility] Comment on above: Performed By: #### B MP, BNP, HSTROPN ####[facility] Inotulnucy[address] [place], [place] [address]Dr. Nahed Yañez CO2 [Moles/Vol] 28.7 mmol/L Normal 21.0-32.0 [facility] Comment on above: Performed By: #### B MP, BNP, HSTROPN ####[facility] Kgpvoizvoy13[address] [place] [address]Dr. Nahed Yañez Creatinine [Mass/Vol] 0.98 mg/dL Normal 0.55-1.02 [facility] Comment on above: Performed By: #### B MP, BNP, HSTROPN ####[facility] Jhpersgueg9[address] [place], [place] [address]Dr. Nahed Yañez EGFR-AF CHILEAN >60 Normal >=60 [facility] Comment on above: Performed By: #### B MP, BNP, HSTROPN ####[facility] Draxojjvwj18[address] [place], [place] [address]Dr. Rosemarieashley Otilio EGFR-NON AF CHILEAN 58 mL/min/1.73m2 Critically low >=60 [facility] Comment on above: Performed By: #### B MP, BNP, HSTROPN ####[facility] Zovdyoeawc[address] [place], [place] [address]Dr. Rosemarieashley Yañez Glucose [Mass/Vol] 150 mg/dL Critically high 74-106 [facility] Comment on above: Performed By: #### B MP, BNP, HSTROPN ####[facility] Dzyhnjmzzq[address] [place], [place] [address]Dr. Nahed Yañez Potassium [Moles/Vol] 4.5 mmol/L Normal 3.5-5.1 [facility] Comment on above: Performed By: #### B MP, BNP, HSTROPN ####[facility] Zlxvryemth[address] [place], [place] [address]Dr. Rosemarieashley Yañez Sodium [Moles/Vol] 134 mmol/L Critically low 136-145 [facility] Comment on above: Performed By: #### B MP, BNP, HSTROPN ####[facility] Hrwlbureeh[address] [place], [place] [address]Dr. Nahed Yañez Urea nitrogen [Mass/Vol] 19.0 mg/dL Critically high 7.0-18.0 [facility] Comment on above: Performed By: #### B MP, BNP, HSTROPN ####[facility] R[address]bt98[address] [place], [place] [address]Hh. Nahed Yañez Urea nitrogen/Creatinine [Mass ratio] 19.4 mg/mg Normal [facility] Comment on above: Performed By: #### B MP, BNP, HSTROPN ####[facility] Igvgfqdqtp8348 [place] [phone]. Nahed Yañez TROPONIN, HIGH SENSITIVITYon 09-06-2021 HSTROP 50.4 pg/mL Normal 4.0-51.3 [facility] Comment on above: Result Comment: CUT- OFF POINTS HAVE BEEN ESTABLISHED BASED ON THE FOURTH UNIVERSAL DEFINITIONS OF MYOCARDIALINFARCTION. THE UPPER REFERENCE LIMIT (URL) OF TROPONIN, DEFINED THE 99TH PERCENTILE OFcTnI DISTRIBUTION IN A REFERENCE POPULATION, HAS BEEN CONFIRMED THE DECISION THRESHOLDFOR [place] DIAGNOSIS. Performed By: #### B MP, BNP, HSTROPN ####[facility] Xslsikunjk59[address] [place] [phone]. Nahed Yañez XR CHEST 1 Von 09-06-2021 XR CHEST 1 V Normal [facility] CBC with Diffon 09-08-2018 Abs. Basophil 0.03 k/uL Normal 0.00-0.20 [facility] Comment on above: Performed By: #### L IP, CMPX, CDP #### [facility] [address] [place] [address] Nurse School: Nino Farias MD Abs.Imm.Granulocyte 0.05 k/uL Normal 0.00-0.30 [facility] Comment on above: Performed By: #### L IP, CMPX, CDP #### [facility] [address] [place] [address] Nurse School: Nino Farias MD Abs.Neutrophil (Seg) 11.30 k/uL High 1.50-8.10 [facility] Comment on above: Performed By: #### L IP, CMPX, CDP #### [facility] [address] [place], [place] [id number] Nurse School: Nino Farias MD Basophils/100 WBC (Bld) 0 % Normal 0-2 [facility] Comment on above: Performed By: #### L IP, CMPX, CDP #### [facility] [address] [place], [place] [id number] Nurse School: Nino Farias MD Eosinophils #/vol (Bld) 0.17 10*3/uL Normal 0.00-0.44 [facility] Comment on above: Performed By: #### L IP, CMPX, CDP #### [address] [place], [facility] Nurse School: Nino Farias MD Eosinophils/100 WBC (Bld) 1 % Normal 1-4 [facility] Comment on above: Performed By: #### L IP, CMPX, CDP #### [address] [place], [facility] Nurse School: Nino Farias MD Erythrocyte distribution width Ratio (RBC) 12.5 % Normal 11.8-14.4 [facility] Comment on above: Performed By: #### L IP, CMPX, CDP #### [address] [place], [facility] Nurse School: Nino Farias MD Hematocrit Volume Fraction (Bld) 36.8 % Normal 36.3-47.1 [facility] Comment on above: Performed By: #### L IP, CMPX, CDP #### [address] [place], [place] [id number] Nurse School: Nino Farias MD Hemoglobin mass conc (Bld) 11.6 g/dL Low 11.9-15.1 [facility] Comment on above: Performed By: #### L IP, CMPX, CDP #### [address] [place], [facility] Nurse School: Nino Farias MD Immature granulocytes #/vol (Bld) 0 % Normal 0 [facility] Comment on above: Performed By: #### L IP, CMPX, CDP #### [facility] [address] [place], [place] [id number] Nurse School: Nino Farias MD Lymphocytes #/vol (Bld) 2.56 10*3/uL Normal 1.10-3.70 [facility] Comment on above: Performed By: #### L IP, CMPX, CDP #### [facility] [address] [place], [facility] Nurse School: Nino Farias MD Lymphocytes/100 WBC (Bld) 18 % Low 24-43 [facility] Comment on above: Performed By: #### L IP, CMPX, CDP #### [address] [place], [facility]83 Nurse School: Nino Farias MD MCH Entitic mass (RBC) 30.6 pg Normal 25.2-33.5 [facility] Comment on above: Performed By: #### L IP, CMPX, CDP #### [address] [place], [facility]83 Nurse School: Nino Farias MD MCHC mass conc (RBC) 31.5 g/dL Normal 28.4-34.8 [facility] Comment on above: Performed By: #### L IP, CMPX, CDP #### [address] [place], [place] [id number] Nurse School: Nino Farias MD MCV Entitic volume (RBC) 97.1 fL Normal 82.6-102.9 [facility] Comment on above: Performed By: #### L IP, CMPX, CDP #### [facility] [address] [place], [place] [id number] Nurse School: Nino Farias MD Monocytes #/vol (Bld) 0.55 10*3/uL Normal 0.10-1.20 [facility] Comment on above: Performed By: #### L IP, CMPX, CDP #### [facility] [address] [place], [place] [id number] Nurse School: Nino Farias MD Monocytes/100 WBC (Bld) 4 % Normal 3-12 [facility] Comment on above: Performed By: #### L IP, CMPX, CDP #### [facility] [address] [place], [place] [address] Nurse School: Nino Farias MD Neutrophil (Seg) 77 % High 36-65 [facility] Comment on above: Performed By: #### L IP, CMPX, CDP #### [facility] [address] [place], [place] [id number] Nurse School: Nino Farias MD NRBC Automated 0.0 per 100 WBC Normal 0.0 [facility] Comment on above: Performed By: #### L IP, CMPX, CDP #### [facility] [address] [place], [place] [phone] Nurse School: Nino Farias MD Platelet mean volume Entitic volume (Bld) 9.2 fL Normal 8.1-13.5 [facility] Comment on above: Performed By: #### L IP, CMPX, CDP #### [facility] [address] [place], [place] [address] Nurse School: Nino Farias MD Platelets #/vol (Bld) 305 10*3/uL Normal 138-453 [facility] Comment on above: Performed By: #### L IP, CMPX, CDP #### [facility] [address] [place], [place] [address]83 Nurse School: Nino Farias MD RBC #/vol (Bld) 3.79 10*6/uL Low 3.95-5.11 [facility] Comment on above: Performed By: #### L IP, CMPX, CDP #### [facility] [address] [place] [address] Nurse School: Nino Farias MD WBC #/vol (Bld) 14.7 10*3/uL High 3.5-11.3 [facility] Comment on above: Performed By: #### L IP, CMPX, CDP #### [facility] [address] [place], [place] [id number] Nurse School: Nino Farias MD Auto Diff Performed NOT REPORTED Normal [facility] Comment on above: Performed By: #### L IP, CMPX, CDP #### [address] [place] [address] Nurse School: Nino Farias MD Platelets #/vol (Bld) NOT REPORTED Normal [facility] Comment on above: Performed By: #### L IP, CMPX, CDP #### [facility] [address] [place] [address] [place] [address] Nurse School: Nino Farias MD RBC morphology finding Nom (Bld) NOT REPORTED Normal [facility] Comment on above: Performed By: #### L IP, CMPX, CDP #### [address] [place] [address] Nurse School: Nino Farias MD WBC Morphology NOT REPORTED Normal [facility] Comment on above: Performed By: #### L IP, CMPX, CDP #### [facility] [address] [place] [address] [place] [address] Nurse School: Nino Farias MD Comp Metabolic Pr/rfx MGon 0 09-08-2018 ALT enzyme act/vol U/L Low -33 [facility] Comment on above: Performed By: #### L IP, CMPX, CDP #### [facility] [address] [place], [place] [id number] Nurse School: Nino Farias MD (cont.) Normal [facility] Comment on above: Result Comment: Aver age GFR for 50-59 years old: 93 mL/min/1.73sq m Chronic Kidney Disease: <60 mL/min/1.73sq m Kidney failure: <15 mL/min/1.73sq m eGFR calculated using average adult body mass. Additional eGFR calculator available at: http://www.Insurity/multiple_crcl_2012.htm Performed By: #### L IP, CMPX, CDP #### [facility] [address] [place] [address] Nurse School: Nino Farias MD Albumin mass conc 4.0 g/dL Normal 3.5-5.2 [facility] Comment on above: Performed By: #### L IP, CMPX, CDP #### [facility] [address] [place] [address] Nurse School: Nino Farias MD Albumin/Globulin mass ratio 1.3 {ratio} Normal 1.0-2.5 [facility] Comment on above: Performed By: #### L IP, CMPX, CDP #### [facility] [address] [place] [address] Nurse School: Nino Farias MD Alkaline Phos 58 U/L Normal 35-104 [facility] Comment on above: Performed By: #### L IP, CMPX, CDP #### [facility] [address] [place] [address] Nurse School: Nino Farias MD Anion gap molar conc 8 mmol/L Low 9-17 [facility] Comment on above: Performed By: #### L IP, CMPX, CDP #### [facility] [address] [place] [address] Nurse School: Nino Farias MD AST enzyme act/vol 20 U/L Normal <32 [facility] Comment on above: Performed By: #### L IP, CMPX, CDP #### [facility] [address] [place], [place] [id number] Nurse School: Nino Farias MD Bilirubin Ql (U) 0.17 mg/dL Low 0.3-1.2 [facility] Comment on above: Performed By: #### L IP, CMPX, CDP #### [facility] [address] [place], [place] [phone] Nurse School: Nino Farias MD BUN/CRE Ratio 15 Normal 9-20 [facility] Comment on above: Performed By: #### L IP, CMPX, CDP #### [facility] [address] [place], [place] [id number] Nurse School: Nino Farias MD Calcium mass conc 9.3 mg/dL Normal 8.6-10.4 [facility] Comment on above: Performed By: #### L IP, CMPX, CDP #### [facility] [address] [place], [place] [phone] Nurse School: Nino Farias MD Chloride molar conc 97 mmol/L Low 98-107 [facility] Comment on above: Performed By: #### L IP, CMPX, CDP #### [facility] [address] [place] [address] Dr. [place], [place] [phone] Nurse School: Nino Farias MD CO2 molar conc 31 mmol/L Normal 20-31 [facility] Comment on above: Performed By: #### L IP, CMPX, CDP #### [facility] [address] [place], [place] [id number] Nurse School: Nino Farias MD Creatinine mass conc 1.22 mg/dL High 0.50-0.90 [facility] Comment on above: Performed By: #### L IP, CMPX, CDP #### [facility] [address] [place], [place] [phone] Nurse School: Nino Farias MD GFR, Amer 55 mL/min Low >60 [facility] Comment on above: Performed By: #### L IP, CMPX, CDP #### [facility] [address] [place] [address] Nurse School: Nino Farias MD GFR,non Amer 45 mL/min Low >60 [facility] Comment on above: Performed By: #### L IP, CMPX, CDP #### [facility] [address] [place] [address] Nurse School: Nino Farias MD Glucose mass conc 93 mg/dL Normal 70-99 [facility] Comment on above: Performed By: #### L IP, CMPX, CDP #### [facility] [address] [place] [address] Nurse School: Nino Farias MD Potassium molar conc 4.5 mmol/L Normal 3.7-5.3 [facility] Comment on above: Performed By: #### L IP, CMPX, CDP #### [facility] [address] [place] [address] Nurse School: Nino Farias MD Protein mass conc 7.0 g/dL Normal 6.4-8.3 [facility] Comment on above: Performed By: #### L IP, CMPX, CDP #### [facility] [address] [place] [address] Nurse School: Nino Farias MD Sodium molar conc 136 mmol/L Normal 135-144 [facility] Comment on above: Performed By: #### L IP, CMPX, CDP #### [facility] [address] [place] [address] Nurse School: Nino Farias MD Staging: Normal [facility] Comment on above: Result Comment: Stag e 1: Some kidney damage normal GFR Stage 2: Mild kidney damage GFR 60-89 Stage 3: Moderate kidney damage GFR 30-59 Stage 4: Severe kidney damage GFR 15-29 Stage 5: Severe kidney damage GFR <15 ESRD - chronic treatment by dialysis or transplant Performed By: #### L IP, CMPX, CDP #### [facility] [address] [place], [place] [phone] Nurse School: Nino Farias MD Urea nitrogen mass conc 18 mg/dL Normal 6-20 [facility] Comment on above: Performed By: #### L IP, CMPX, CDP #### [facility] [address] [place], [place] [phone] Nurse School: Nino Farias MD Lactic Acidon 09-08-2018 Lactate molar conc 1.2 mmol/L Normal 0.5-2.2 [facility] Comment on above: Performed By: #### L AC #### [facility] [address] [place], [place] [phone] Nurse School: Nino Farias MD Lipaseon 09-08-2018 Lipase enzyme act/vol 27 U/L Normal 13-60 [facility] Comment on above: Performed By: #### L IP, CMPX, CDP #### [facility] [address] [place], [place] 9931483 Nurse School: Nino Farias MD UA w/Reflex Cultureon 2018 Acetoacetic Acid,Ur Negative Normal NEG [facility] Comment on above: Performed By: #### U MICAO, UAX #### [facility] [address] [place], [place] [phone] Nurse School: Nino Farias MD Bilirubin.direct mass conc SMALL Abnormal NEG [facility] Comment on above: Performed By: #### U MICAO, UAX #### [facility] [address] [place] [address] Nurse School: Nino Farias MD Color Nom (U) YELLOW Normal YEL [facility] Comment on above: Performed By: #### U MICAO, UAX #### [facility] [address] [place] [address] Nurse School: Nino Farias MD Glucose mass conc Negative Normal NEG [facility] Comment on above: Performed By: #### U MICAO, UAX #### [facility] [address] [place], [place] [phone] Nurse School: Nino Farias MD Hemoglobin mass conc (Bld) Negative Normal NEG [facility] Comment on above: Performed By: #### U MICAO, UAX #### [facility] [address] [place], [place] [id number] Nurse School: Nino Farias MD Leuckocyte Esterase Negative Normal NEG [facility] Comment on above: Performed By: #### U MICAO, UAX #### [facility] [address] [place], [place] [phone] Nurse School: Nino Farias MD Nitrite,Ur Negative Normal NEG [facility] Comment on above: Performed By: #### U MICAO, UAX #### [facility] [address] [place] [address] Nurse School: Nino Farias MD PH,Ur 5.5 Normal 5.0-9.0 [facility] Comment on above: Performed By: #### U MICAO, UAX #### [facility] [address] [place] [address] Nurse School: Nino Farias MD Protein mass conc Negative Normal [facility] Comment on above: Performed By: #### U MICAO, UAX #### [facility] [address] [place], [place] 78[address]83 Nurse School: Nino Farias MD Spec. [place],Ur 1.010 Normal 1.010-1.020 [facility] Comment on above: Performed By: #### U MICAO, UAX #### [facility] [address] [place], [place] [phone] Nurse School: Nino Farias MD Turbidity CLEAR Normal CLEAR [facility] Comment on above: Performed By: #### U MICAO, UAX #### [facility] [address] [place] [address] Nurse School: Nino Farias MD Urobilinogen,Ur Normal Normal NORM [facility] Comment on above: Performed By: #### U MICAO, UAX #### [facility] [address] [place] [address] Nurse School: Nino Farias MD Comment NOT REPORTED Normal [facility] Comment on above: Performed By: #### U MICAO, UAX #### [facility] [address] [place] [address] Nurse School: Nino Farias MD Urinalysis,Microon 9 ----- Normal [facility] Comment on above: Performed By: #### U MICAO, UAX #### [facility] [address] [place], [place] 556[address]83 Nurse School: Nino Farias MD Bacteria LM.HPF #/area (Urine sed) TRACE Abnormal NONE [facility] Comment on above: Performed By: #### U MICAO, UAX #### [facility] [address] [place], [place] [phone] Nurse School: Nino Farias MD Epithelial cells LM.HPF #/area (Urine sed) None Normal 0-25 [facility] Comment on above: Performed By: #### U MICAO, UAX #### [facility] [address] [place], [place] [phone] Nurse School: Nino Farias MD RBC #/vol (U) None Normal 0-2 [facility] Comment on above: Performed By: #### U MICAO, UAX #### [facility] [address] [place] [address] Nurse School: Nino Farias MD WBC #/vol (U) 0 TO 2 Normal 0-5 [facility] Comment on above: Performed By: #### U MICAO, UAX #### [facility] [address] [place], [place] 512[address]83 Nurse School: Nino Farias MD Amorphous sediment LM Ql (Urine sed) NOT REPORTED Normal NONE [facility] Comment on above: Performed By: #### U MICAO, UAX #### [facility] [address] [place] [address] Nurse School: Nino Farias MD Casts LM.LPF #/area (Urine sed) NOT REPORTED Normal [facility] Comment on above: Performed By: #### U MICAO, UAX #### [facility] [address] [place] [address] Nurse School: Nino Farias MD Crystals LM Nom (Urine sed) NOT REPORTED Normal [facility] Comment on above: Performed By: #### U MICAO, UAX #### [facility] [address] [place] [address] Nurse School: Nino Farias MD Epithelial, Renal NOT REPORTED Normal 0 [facility] Comment on above: Performed By: #### U MICAO, UAX #### [facility] [address] [place], [place] [phone] Nurse School: Nino Farias MD Mucus Strands NOT REPORTED Normal [facility] Comment on above: Performed By: #### U MICAO, UAX #### [facility] [address] [place] [address] Nurse School: Nino Farias MD Other Observations NOT REPORTED Normal NREQ [facility] Comment on above: Performed By: #### U MICAO, UAX #### [facility] [address] [place] [address] Nurse School: Nino Farias MD Trichomonas NOT REPORTED Normal NONE [facility] Comment on above: Performed By: #### U MICAO, UAX #### [facility] [address] [place] [address] Nurse School: Nino Farias MD Yeast LM Ql (Urine sed) NOT REPORTED Normal NONE [facility] Comment on above: Performed By: #### U MICAO, UAX #### [facility] [address] [place] [address] Nurse School: Nino Farias MD Vital Signs Date Time Vital Sign Value Performing Clinician Faci lity 07-05-2023 22:13-0500 Diastolic blood pressure 74 mm[Hg] Arsenio Martin [facility] 07-05-2023 22:13-0500 Heart rate 62 /min Arsenio Mario [facility] 07-05-2023 22:13-0500 Mean blood pressure 85 mm[Hg] Arsenio Mario [facility] 07-05-2023 22:13-0500 Respiratory rate 14 /min Arsenio Mario [facility] 07-05-2023 22:13-0500 SaO2% (BldA) [Mass fraction] 99 % Arsenio Mario [facility] 07-05-2023 22:13-0500 Systolic blood pressure 107 mm[Hg] Arsenio Mario [facility] 07-05-2023 21:49-0500 Diastolic blood pressure 69 mm[Hg] Arsenio Mario [facility] 07-05-2023 21:49-0500 Heart rate 59 /min Arsenio Mario [facility] 07-05-2023 21:49-0500 Mean blood pressure 80 mm[Hg] Arsenio Mario [facility] 07-05-2023 21:49-0500 Respiratory rate 15 /min Arsenio Martin [facility] 07-05-2023 21:49-0500 SaO2% (BldA) [Mass fraction] 97 % Arsenio Mario [facility] 07-05-2023 21:49-0500 Systolic blood pressure 101 mm[Hg] Arsenio Mario [facility] 07-05-2023 21:02-0500 Diastolic blood pressure 77 mm[Hg] Arsenio Mario [facility] 07-05-2023 21:02-0500 Heart rate 60 /min Arsenioulises Martin [facility] 07-05-2023 21:02-0500 Mean blood pressure 86 mm[Hg] Arsenio Martin [facility] 07-05-2023 21:02-0500 Respiratory rate 16 /min Arsenio Martin [facility] 07-05-2023 21:02-0500 SaO2% (BldA) [Mass fraction] 99 % Arsenio Mario [facility] 07-05-2023 21:02-0500 Systolic blood pressure 105 mm[Hg] Arsenio Martin [facility] 07-05-2023 17:45-0500 Body temperature 97.52 [degF] Arsenio Martin [facility] 07-05-2023 16:27-0500 Body temperature 96.44 [degF] Arsenio Martin [facility] 07-05-2023 15:15-0500 gluc 136 mg/dL Arsenio Martin [facility] 07-05-2023 15:15-0500 gluc Arsenioulises Martin [facility] 07-05-2023 15:02-0500 Body temperature 95.9 [degF] Arsenio Mario [facility] 07-05-2023 15:02-0500 Heart rate 54 /min Arsenio Mario [facility] 07-05-2023 15:02-0500 Respiratory rate 16 /min Arsenio Mario [facility] 08-09-2022 17:25-0400 Diastolic blood pressure 64 mm[Hg] Arsenio Mario [facility] 08-09-2022 17:25-0400 Heart rate 75 /min Arsenio Mario [facility] 08-09-2022 17:25-0400 Mean blood pressure 83 mm[Hg] Arsenio Mario [facility] 08-09-2022 17:25-0400 Respiratory rate 16 /min Arsenio Mario [facility] 08-09-2022 17:25-0400 SaO2% (BldA) [Mass fraction] 96 % Arsenio Mario [facility] 08-09-2022 17:25-0400 Systolic blood pressure 122 mm[Hg] Arsenio Mario [facility] 08-09-2022 16:00-0400 Diastolic blood pressure 56 mm[Hg] Arsenio Mario [facility] 08-09-2022 16:00-0400 Heart rate 64 /min Arsenio Mario [facility] 08-09-2022 16:00-0400 Mean blood pressure 72 mm[Hg] Arsenio Mario [facility] 08-09-2022 16:00-0400 SaO2% (BldA) [Mass fraction] 92 % Arsenio Martin [facility] 08-09-2022 16:00-0400 Systolic blood pressure 103 mm[Hg] Arsenio Martin [facility] 08-09-2022 15:00-0400 Diastolic blood pressure 67 mm[Hg] Arsenio Martin [facility] 08-09-2022 15:00-0400 Heart rate 61 /min Arsenio Martin [facility] 08-09-2022 15:00-0400 Mean blood pressure 80 mm[Hg] Arsenio Martin [facility] 08-09-2022 15:00-0400 Systolic blood pressure 106 mm[Hg] Arsenio Martin [facility] 08-09-2022 14:03-0400 SaO2% (BldA) [Mass fraction] 94.1 % Arsenio Martin [facility] Resp Auto SS 08-09-2022 13:10-0400 Body temperature 98.24 [degF] Arsenio Martin [facility] 08-09-2022 13:10-0400 Heart rate 70 /min Arsenio Martin [facility] 08-09-2022 13:10-0400 Respiratory rate 18 /min Arsenio Martin [facility] Encounters Encounter Date Encounter Type Care Provider Facility Start: 09-10-2023 End: 09-10-2023 ambulatory EHAB [facility] Start: 08-11-2023 Evaluation and management of inpatient [facility] Start: 08-10-2023 Evaluation and management of inpatient [facility] Start: 08-10-2023 End: 08-11-2023 [facility]: 07-31-[facility]23 End: 07-31-2023 ambulatory VINAY CHAPA [facility] Start: 07-11-2023 Evaluation and management of inpatient LOREE CHANCE [facility] Start: 07-08-2023 Evaluation and management of inpatient BARRETT LARSON [facility] Start: 07-06-2023 Evaluation and management of inpatient ISAIAHLAYNE LARSON [facility] Start: 07-06-2023 End: 07-11-2023 Evaluation and management of inpatient ASRENIO MARTIN [facility] [facility] Start: 07-05-2023 End: 07-06-2023 Emergency department patient visit Arsenio Martin Facility:[facility] Start: 07-05-2023 End: 07-05-2023 Emergency department patient visit Arsenio Martin [facility] Start: 06-29-2023 Evaluation and management of inpatient ROSALBA OLIVASWinston [facility] Start: 06-29-2023 End: 07-02-2023 Evaluation and management of inpatient SOCORRO Marquez CASTRO [facility] Start: 08-22-2022 End: 08-24-2022 Evaluation and management of inpatient DR ЕКАТЕРИНА ROBERT . Facility: Start: 08-09-2022 End: 08-09-2022 Emergency department patient visit Arsenio Martin Facility:[facility] Start: 08-09-2022 End: 08-09-2022 Emergency department patient visit Arsenio Martin [facility] Start: 07-30-2022 End: 08-01-2022 Evaluation and management of inpatient DR ЕКАТЕРИНА ROBERT . Facility: Start: 07-27-2022 End: 07-28-[address] ЕКАТЕРИНА ROBERT . Facility: Start: 05-08-2022 End: 05-09-[address] ЕКАТЕРИНА ROBERT . Facility:[facility] Start: 01-31-2022 End: 01-31-[address] ЕКАТЕРИНА ROBERT . Facility:[facility] Start: 11-01-2021 End: 11-03-2021 Evaluation and management of inpatient TAMIE FAJARDO Facility:[facility] Start: 10-31-2021 End: 11-01-2021 Evaluation and management of inpatient DR ЕКАТЕРИНА ROBERT . Facility: Start: 09-28-2021 End: 09-29-[address] ЕКАТЕРИНА ROBERT . Facility:[facility] Start: 09-06-2021 End: 09-07-[address] ЕКАТЕРИНА ROBERT . Facility: Start: 03-04-2021 End: 03-04-2021 Emergency department patient visit Magdalena Oconnor Facility:[facility] Start: 09-08-2018 End: 09-08-2018 Emergency department patient visit KEISHA DORADO JR [facility] Procedures Date Procedure Procedure Detail Performing Clinician Start: 08-02-2022 Microscopic examinat ion of blood, culture DR ЕКАТЕРИНА ROBERT . Comment on above: Performed By: #### B [id number] ####[facility] [id number] [place] [address]Dr. Nahed Otilio Start: 11-02-2021 Antibody screen SAVANNAHI SA AD Comment on above: Performed By: #### 3 5200, 90199 #### [facility] [address] [place] [address], [facility] Start: 07-16-2019 Phalangectomy of toe [...] Martin Payers Date Payer Category Payer Medicare [id number] 2021 Self-pay 2018 Medicare [id number] 1960 Unknown [id number] 2.16.8 [id number] 1960 Unknown [id number] 2.16.8 40.1.954056.3.579.2.647 1960 Unknown [id number] 2.16.84 0.1.083783.3.579.2.593 1960 Unknown [id number] 2.16.84 0.1.530080.3.579.2.593 1960 Unknown [id number] 2.16.84 0.1.342364.3.579.2.593 1960 Unknown [id number] 2.16.84 0.1.359226.3.579.2.593 1960 Unknown [id number] 2.16.84 0.1.663584.3.579.2.593 1960 Unknown [id number] 2.16.84 0.1.151614.3.579.2.593 1960 Unknown [id number] 2.16.84 0.1.771030.3.579.2.593 1961 Unknown [id number] 2.16.84 0.1.369507.3.579.2.593 1960 Unknown [id number] 2.16.8 40.1.849819.3.579.2.727 1960 Unknown [id number] 2.16.8 40.1.806257.3.579.2.727 1959 Unknown [id number] Unknown [id number] 2.16.8 40.1.708862.3.579.2.531 Social History Date Type Detail Facility Start: 08-09-2022 Tobacco smoking status Heavy t obacco smoker (finding) [facility] Comment on above: 2 cigarettes a day Sex Assigned At Female [facility] Functional Status Date Assessment Result Facility 07-05-2023 Functional Status N/A [facility] 08-09-2022 Functional Status N/A [facility] Clinical Notes 11-03-2021 to 09-10-2023 Note Date & Type Note Facility 09-10-2023 Note [facility] Cardiology Clinic Note Chief Complaint: Patient here for follow up [facility]. She is doing much better and isn't having as much chest pain. She was started on isosorbide and carvedilol. She's breathing much better. HPI: Vivian Vann is a 63 y.o. female Recently discharged from [facility]; she is doing well [...] shortness of breath and was admitted to [place] [facility] and diagnosed NSTEMI and transferred to [facility] for further care. Her [...] tolerated 4) outpatient follow-up with [facility] cardiology Procedures Performed: coronary angiogram, right heart catheterization, conscious sedation 21 min, ultrasound guidance for vascular access Procedure Description: The patient was brought to the cardiac catheterization lab in a fasting state. Informed written consent was obtained. she was prepped and draped in usual sterile fashion over the right wrist and right neck and (more content not included)... [facility] 08-11-2023 Note [facility]TP CARDIOLOGY INPAT IENT PROGRESS [...] or edema. Patient states she lives in [place] and does not have a car. This limits follow up for her pacemaker however she does have appt scheduled for 08/20 at our [facility] [place] [facility]. Plan for a device check to [...] wall cardiac conduction device Electronically signed: ROSAMARIA ELEAN (more content not included)... [facility] 08-11-2023 Note Hospital Medicine Discharge Summary Final [...] were sent to [facility]/pharmacy #[id number] [place] [address] oxyCODONE-acetaminophen 5-325 mg tablet Vivian is allergic [...] rate 20, h (more content not included)... [facility] 08-10-2023 Note 08/10/23 1035 Admission Assessment Questions Verify insurance with patient [...] Discharge? Yes Does the patient have a rehabilitation case coordinator assigned to them through their insurance? No [...] to send link and activate MyChart? No [facility] 08-10-2023 Note Hospital Medicine History and Physical 08/10/2023 11:43 AM THE HOSPITALIST TEAM PREFERS TO USE [email or web address] CHAT FOR COMMUNICATION 7AM-7PM. IF I DO NOT RESPOND WITHIN 15 MINUTES, PLEASE PAGE ME/CALL THROUGH THE CENTRAL PROCESSING TECH. FROM 7PM-7AM, PLEASE PAGE [phone](COVR) Chief Complaint pacemaker lead failure, status post [...] Bradycardia 07/06/2023 NSTEMI (non-ST elevated myocardial infarction) ([facility] 06/29/2023 Other forms of angina pectoris 06/29/2023 Hypomagnesemia 06/29/2023 Acute midline low back pain without sciatica 06/29/2023 Coronary arteriosclerosis 11/24/2021 Hyperlipidemia 11/24/2021 Type 2 diabetes mellitus ([facility]) 11/24/2021 Acute non-ST segment elevation myocardial infarction ([facility]) 11/24/2021 Cigarette smoker 11/24/2021 Pacemaker lead failure [...] this hospital stay by a member of [facility]. Past Medical History No [...] Alcohol use: Not (more content not included)... [facility] 08-10-2023 Note Indications for vent ricular lead [...] of the upper extremity Loree Chance M.D. [facility] Bicycle Repair Technicianhydraulic bull riveter operator and Pediatrics Director: Cardiac Electrophysiology Program [facility] 08-10-2023 Note Patient: Vivian Dela Cruz or Procedure Information Date/Time: 08/10/23829 Procedure: Pacemaker lead revision - Biotronik Location: [facility] MINING HELPER 1 / [facility] VASCULAR LAB (Cath) Providers: Loree Chance MD [...] discussed with patient who. Additional Equipment Requests [facility] 07-11-2023 Note Hospital Medicine Discharge Summary Final [...] 10:20 AM Socorro Oviedo NP CARD Deirdre Moreno 08/06/2023 1:30 PM [facility] CV CLINIC DEVICE CHECK [facility] CARD [facility] HeartVAS Your medication list [...] 70.4 kg (1 (more content not included)... [facility] 07-11-2023 Note Occupational Therapy Occupational Therapy Evaluation Patient Name: Vivina Vann : 1960 Today's Date: 07/11/2023 Time [...] Level of Function Prior Function Level of Maple: Independent with ADLs and functional transfers, Independent [...] Eating meals?: None (Independent) Total Score OT [facility]: 24 Assessment/Plan OT Assessment OT Education/Comments: (PPM handout issued and discussed with good return demo) Plan OT Plan: No skilled OT OT Discharge Recommendations: Home OT - Discharge Recommendations Placed: Yes OT Goals Multi-Disciplinary Problems (from Occupational Therapy) Active Problems Not on file [facility] 07-11-2023 Note UTP CARDIOLOGY PROGR [...] Normal heart size. Electronically signed: Denver Hernandez. [facility] 06/29/23: Final Impression: 1) Coronary angiogram [...] left ventricular sys (more content not included)... [facility] 07-11-2023 Note Hospital Medicine Daily Progress Note - 07/11/2023 8:24 AM; Room: [address] [place] [address] Admission: 07/06/2023 12:25 AM; Length of stay: 5 days THE HOSPITALIST TEAM PREFERS TO USE [email or web address] CHAT FOR COMMUNICATION 7AM-7PM. IF I DO NOT RESPOND WITHIN 15 MINUTES, PLEASE PAGE ME/CALL THROUGH THE CENTRAL PROCESSING TECH. FROM 7PM-7AM, PLEASE PAGE [phone](COVR) Code Status: Full Code Barriers to Discharge: [...] LDL 95 07/06/2023 No results found for: [id number] , IRON , TIBC , C3 , [...] clear. Normal heart (more content not included)... [facility] 07-10-2023 Note Indications for dual [...] of the upper extremity Loree Chance M.D. [facility] Bicycle Repair Technicianhydraulic bull riveter operator and Pediatrics Director: Cardiac Electrophysiology Program [facility] 07-10-2023 Note Patient: Vivian Dela Cruz or Procedure Information Date/Time: 07/10/231499 Procedure: Implant PPM Location: [facility] MINING HELPER 1 / [facility] VASCULAR LAB (Cath) Providers: Loree Chance MD [...] discussed with patient who. Additional Equipment Requests [facility] 07-10-2023 Note UTP CARDIOLOGY PROGR [...] lock IV AND sodium chloride CV Testing: [facility] 06/29/23: Final Impression: 1) Coronary angiogram [...] 86 QT Interval 466 QTC CALCULATION(BAZETT) 476 R-Gregory 34 T Wave Gregory [address] & Marked T wave abnormality, consider anterolateral ischemia Prolonged QT Abnormal ECG When compared with ECG of 06-JUL-2023 14:34, T wave inversion less evident in Lateral Confirmed by Yoan GRIJALVA, KIERA Rainey (57) on 07/08/2023 12:23:36 PM Assessment/Plan Junctional bradycardia Abnormal EKG- ST/T wave changes concerning for ischemia- [facility] showed stable CAD Ventric (more content not included)... [facility] 07-10-2023 Note Hospital Medicine Daily Progress Note - 07/10/2023 8:08 AM; Room: [address] [place] [address] Admission: 07/06/2023 12:25 AM; Length of stay: 4 days THE HOSPITALIST TEAM PREFERS TO USE [email or web address] CHAT FOR COMMUNICATION 7AM-7PM. IF I DO NOT RESPOND WITHIN 15 MINUTES, PLEASE PAGE ME/CALL THROUGH THE CENTRAL PROCESSING TECH. FROM 7PM-7AM, PLEASE PAGE [phone](COVR) Code Status: Full Code Barriers to Discharge: [...] LDL 95 07/06/2023 No results found for: [id number] , IRON , TIBC , C3 , [...] need to arrange for her transportation needs; lead technical writer provided printed information to Pt for local [employer] companies for Pt (more content not included)... [facility] 07-09-2023 Note Patient admitted to the hospital for: Bradycardia. Chart echo from 06/29/2023 reports: EF 60%. Echo report does Not qualify for Cardiac Rehab services per CMS eligibility criteria. A Cardiac Rehab referral must also meet CMS criteria. Marline Suarez, RN, BSN Cardiopulmonary Rehab Coordinator [facility] 07-09-2023 Note Cardiology Inpatient Progress [...] 86 QT Interval 466 QTC CALCULATION(BAZETT) 476 R-Gregory 34 T Wave Gregory [address] & Marked [...] Rainey (57) on 07/08/2023 12:23:36 PM 06/29/23 [facility] Final Impression: 1) Coronary angiogram shows [...] of bradycardia. Patient has been transferred to [facility] for consideration of pacemaker placement. As per patient, her heart rate was 18 at the outside hospital, however I could not confirm from any documentation. During the current hospitalization, so far patient's heart rate has been ranging 40-50. EKG performed in the ED showed diffuse T wave inversions with junctional rhythm. Telemetry shows sinus bradycardia a (more content not included)... [facility] 07-09-2023 Note Hospital Medicine Daily Progress Note - 07/09/2023 11:10 AM; Room: [address] [place] [address] Admission: 07/06/2023 12:25 AM; Length of stay: 3 days THE HOSPITALIST TEAM PREFERS TO USE [email or web address] CHAT FOR COMMUNICATION 7AM-7PM. IF I DO NOT RESPOND WITHIN 15 MINUTES, PLEASE PAGE ME/CALL THROUGH THE CENTRAL PROCESSING TECH. FROM 7PM-7AM, PLEASE PAGE [phone](COVR) Code Status: Full Code Barriers to Discharge: [...] LDL 95 07/06/2023 No results found for: [id number] , IRON , TIBC , C3 , [...] Planning TBD Signed Barrett Haider MD MS4 [facility] Medicine 07/09/2023 11: (more content not included)... [facility] 07-08-2023 Note ---- Attestation signed [...] 86 QT Interval 466 QTC CALCULATION(BAZETT) 476 R-Gregory 34 T Wave Gregory [address] & Marked T wave abnormality, consider anterolateral ischemia Prolonged QT Abnormal ECG When compared with ECG of 06-JUL-2023 14:34, T wave inversion less evident in Lateral Lab Results Component Value Date CKTOTAL 36.0 07/06/2023 TROPONINI 0.12 () 07/06/2023 Complete Echo (TTE) w/wo Imaging Agent, Strain, 3D, Bubble Study Result Date: 06/29/2023 1 1 [facility] Heart Station [address] [place] [address] [phone] (fax) Echocardiogram-[facility] Name: VIVIAN VANN Study Date: 06/29/2023 12:30 PM B/P: 135 mmHg/89 mmHg HR: Date of : 1960 Location: [facility] Height: 67 in. Age: [...] Valve: The mitr (more content not included)... [facility] 07-08-2023 Note Hospital Medicine Daily Progress Note - 07/08/2023 8:42 AM; Room: [address] [place] [address] Admission: 07/06/2023 12:25 AM; Length of stay: 2 days THE HOSPITALIST TEAM PREFERS TO USE [employer] FOR COMMUNICATION 7AM-7PM. IF I DO NOT RESPOND WITHIN 15 MINUTES, PLEASE PAGE ME/CALL THROUGH THE CENTRAL PROCESSING TECH. FROM 7PM-7AM, PLEASE PAGE [phone](COVR) Code Status: Full Code Barriers to Discharge: [...] LDL 95 07/06/2023 No results found for: [id number] , IRON , TIBC , C3 , [...] Planning TBD Signed Barrett Haider MD MS4 [facility] 07/08/2023 8:[address] [facility] 07-07-2023 Note ---- Attestation signed [...] 84 QT Interval 434 QTC CALCULATION(BAZETT) 451 R-Gregory 23 T Wave Gregory [address] & Marked [...] 1 1 [facility] Heart Station [address] [place], [place] [phone] (fax) Echocardiogram-[facility] Name: VIVIAN VANN Study Date: 06/29/2023 12:30 PM B/P: 135 mmHg/89 mmHg HR: Date of : 1960 Location: [facility] Height: 67 in. Age: [...] abnormality. Right Ventricle: (more content not included)... [facility] 02-24-2024 Note Hospital Medicine Daily Progress Note - 07/07/2023 10:19 AM; Room: [address] [place] [address] Admission: 07/06/2023 12:25 AM; Length of stay: 1 days THE HOSPITALIST TEAM PREFERS TO USE [email or web address] CHAT FOR COMMUNICATION 7AM-7PM. IF I DO NOT RESPOND WITHIN 15 MINUTES, PLEASE PAGE ME/CALL THROUGH THE CENTRAL PROCESSING TECH. FROM 7PM-7AM, PLEASE PAGE [phone](COVR) Code Status: Full Code Barriers to Discharge: [...] 4.6 3.7 CHLORIDE (more content not included)... [facility] 07-06-2023 Note communication receiv ed that Patient stating does not have transportation to return home at discharge At 07/02/2023 discharge, [facility] provided a one-time courtesy taxi cab transportation for Patient to return to her home (Patient's residence is 57 [address]-way from [facility] and cost for taxi cab was $146); [facility] is not able to provide another taxi cab. The following information was printed and provided to the Patient to make her own transportation arrangements for once she is medically cleared for discharge: [facility] hospital address is [address], [place] [address] [employer] Medicare to ask if non-emergency medical transportation is a covered benefit of the specific plan (https://www.[employer]/contact-us/ohi o/) Taxis in [place] (https://co.jonnie.mt.us/3086/Taxi) [employer] [phone] ([phone]) [employer] [phone] [facility] 07-06-2023 Note 07/06/23 1625 Referral Data Referral Source personal service workers Patient Information Primary Caregiver Self Activities of [...] need to arrange for her transportation needs; lead technical writer provided printed information to Pt for local [employer] companies for Pt to consider; [facility] unable to pay for another one-time courtesy [employer] for 57miles one-way trip) [facility] 07-06-2023 Note 1526 lead technical writer attempted to meet with Pt to discuss discharge planning (including Patient will need to arrange her transportation once she is medically cleared to discharge to home); Patient not in bed; unable to complete [id number] 1542 lead technical writer attempted to meet with Pt to discuss discharge planning (including Patient will need to arrange her transportation once she is medically cleared to discharge to home); Patient caring for toileting hygiene; unable to complete [id number] [facility] 07-06-2023 Note 07/06/23 1219 Admission [...] Discharge? Yes Does the patient have a rehabilitation case coordinator assigned to them through their insurance? No [...] to send link and activate MyChart? Yes [facility] 07-06-2023 Note ---- Attestation signed by Barrett [...] Progress Note - 07/06/2023 11:37 AM; Room: [address] [place] [address] Admission: 07/05/2023 11:50 PM; Length of stay: 1 days THE HOSPITALIST TEAM PREFERS TO USE [email or web address] CHAT FOR COMMUNICATION 7AM-7PM. IF I DO NOT RESPOND WITHIN 15 MINUTES, PLEASE PAGE ME/CALL THROUGH THE CENTRAL PROCESSING TECH. FROM 7PM-7AM, PLEASE PAGE [phone](COVR) Code Status: Full Code Barriers to Discharge: [...] -Continue home medi (more content not included)... [facility] 07-06-2023 Note . Hospital Medicine History and Physical 07/06/2023 1:19 AM THE HOSPITALIST TEAM PREFERS TO USE [email or web address] CHAT FOR COMMUNICATION 7AM-7PM. IF I DO NOT RESPOND WITHIN 15 MINUTES, PLEASE PAGE ME/CALL THROUGH THE CENTRAL PROCESSING TECH. FROM 7PM-7AM, PLEASE PAGE [phone](COVR) Chief Complaint No chief complaint on file. History of Present Illness Vivian Vann is an 63 y.o. female who came from home with CP. This is a 63 years old female lady with a medical history of hypertension, tobacco smoking, A-fib, CHF. Came into the [facility] as a direct admit [...] Bradycardia 07/06/2023 NSTEMI (non-ST elevated myocardial infarction) ([facility]) 06/29/2023 Other forms of angina pectoris 06/29/2023 Hypomagnesemia 06/29/2023 Acute midline low back pain without sciatica 06/29/2023 Coronary arteriosclerosis 11/24/2021 Hyperlipidemia 11/24/2021 Type 2 diabetes mellitus ([facility]) 11/24/2021 Acute non-ST segment elevation myocardial infarction ([facility]) 11/24/2021 Cigarette smoker 11/24/2021 Assessment and Plan [...] this hospital stay by a member of [facility]. Past Medical History No [...] (CARDIA) Difficulty of (more content not included)... [facility] 07-05-2023 Evaluation + Plan note [...] Reflex 07/05/23 * Drug Screen Urine 07/05/23 [facility]02-19-2024 NotePatient admitted to the hospital for: NSTEMI. Review of the last noted chart Echo from 06/29/2023 reports: EF 60%. Reported echo result does not qualify for Cardiac Rehab services per CMS eligibility criteria for CHF. Marline Suarez, RN, BSN Cardiopulmonary Rehab Coordinator[facility] Note07/02/23 1116 Referral Data Referral Source personal service workers Patient Information Primary Caregiver Self Activities of Daily Living Assistive Device Not applicable Living Arrangement (Current/Prior to Hospitalization) Private residence;Home self care Behavior Oriented Communication Talks;Understands speaking Discharge Planning Support Systems Therapist (planning discharge to home; communication rcvd Pt not wanting [facility] services) Type of Residence/Post Acute Needs Private residence Will patient need Precert for Post Acute needs? No Patient's goal for discharge home RucCC screened; Pt declining [facility], Consult resolved [id number] Communication received that Pt needing transportation to home since was transferred here from [facility], does not drive, lives alone, does not have friends or family who can transport ([phone]) PC to [employer]; from [address] [place] [address] [place] [address] will be $146 Varnish Cooker provided verbal estimate to utility mechanic supervisor, verbal approval from utility mechanic supervisor [phone] taxi cab transportation arranged; bedside RN notified Confirmation #: [id number] Passenger: VIVIAN VANN Phone Number: [phone] Pickup Date/Time: 07/02/2023 3:00 PM Pickup Address: [facility] [place], [address] [place] [address], [facility] Drop Off Address: [address] [place] [address]. Ride Notes: please pickup at [facility]02-19-2024 Note07/02/23 1017 Admission Assessment Questions Verify [...] Discharge? Yes Does the patient have a rehabilitation case coordinator assigned to them through their insurance? No [...] to send link and activate MyChart? [facility]02-19-2024 Note Attestation signed by Merritt Guerrero [...] Value Ventricular Rate 61 Atrial Rate 61 [place] Interval 150 QRS DURATION 88 QT Interval 476 QTC CALCULATION(BAZETT) 479 P Gregory 68 R-Gregory 25 T Wave Gregory 128 Impression Normal sinus rhythm Right atrial [...] 1 1 [facility] Heart Station [address] [place] [address] [phone] (fax) Echocardiogram-[facility] Name: VIVIAN VANN Study Date: 06/29/2023 12:30 PM B/P: 135 mmHg/89 mmHg HR: Date of : 1960 Location: [facility] Height: 67 in. Age: [...] ventricular systolic function. Dop (more content not included)...[facility]02-18-2024 NoteHospital Medicine Daily Progress Note - 07/01/2023 12:00 PM; Room: [address] [place] [address] Admission: 06/29/2023 11:04 AM; Length of stay: 2 days THE HOSPITALIST TEAM PREFERS TO USE [email or web address] CHAT FOR COMMUNICATION 7AM-7PM. IF I DO NOT RESPOND WITHIN 15 MINUTES, PLEASE PAGE ME/CALL THROUGH THE CENTRAL PROCESSING TECH. FROM 7PM-7AM, PLEASE PAGE [phone](COVR) Code Status: Full Code Barriers to Discharge: [...] LDL 114 11/02/2021 No results found for: [id number] , IRON , TIBC , C3 , C4 , WENDI , CANCA , ASO , PSA , CEA , CA125 , CA199 , AFP , CA153 Imaging ECG 12 lead Normal sinus rhythm Right atrial (more content not included)...[facility] 07-01-2023 Note Attestation signed by [...] Value Ventricular Rate 61 Atrial Rate 61 [place] Interval 150 QRS DURATION 88 QT Interval 476 QTC CALCULATION(BAZETT) 479 P Gregory 68 R-Gregory 25 T Wave Gregory 128 Impression Normal sinus rhythm Right atrial [...] 1 [facility] Heart Station [address] [place], [place] [id number] (fax) Echocardiogram-[facility] Name: VIVIAN VANN Study Date: 06/29/2023 12:30 PM B/P: 135 mmHg/89 mmHg HR: Date of : 1960 Location: [facility] Height: 67 in. Age: [...] Right Ventricle: The r (more content not included)...[facility]02-17-2024 Note Attestation signed by Merritt [...] Value Ventricular Rate 61 Atrial Rate 61 [place] Interval 150 QRS DURATION 88 QT Interval 476 QTC CALCULATION(BAZETT) 479 P Gregory 68 R-Gregory 25 T Wave Gregory 128 Impression Normal sinus rhythm Right atrial [...] 1 [facility] Heart Station [address] [place] [address] [phone] (fax) Echocardiogram-[facility] Name: VIVIAN VANN Study Date: 06/29/2023 12:30 PM B/P: 135 mmHg/89 mmHg HR: Date of : 1960 Location: [facility] Height: 67 in. Age: [...] Mild Mild N (more content not included)... [facility]02-17-2024 NoteHospital Medicine Daily Progress Note - 06/30/2023 11:32 AM; Room: [address] [place] [address] Admission: 06/29/2023 11:04 AM; Length of stay: 1 days THE HOSPITALIST TEAM PREFERS TO USE [email or web address] CHAT FOR COMMUNICATION 7AM-7PM. IF I DO NOT RESPOND WITHIN 15 MINUTES, PLEASE PAGE ME/CALL THROUGH THE CENTRAL PROCESSING TECH. FROM 7PM-7AM, PLEASE PAGE [phone](COVR) Code Status: Full Code Barriers to Discharge: [...] Principal Problem: NSTEMI (non-ST elevated myocardial infarction) ([facility]/HCC) Active Problems: Hyperlipidemia Type 2 diabetes mellitus [...] LDL 114 11/02/2021 No results found for: HRUMPWWP15 , IRON , TIBC , C3 , C4 , WENDI , CANCA , ASO , PSA , CEA , CA125 , CA199 , AFP , CA153 Imaging ECG 12 lead Normal sinus rhythm Right atrial enlargement ST & T wave abnormality, consider ante (more content not included)...[facility]02-16-2024 NotePatient: Vivian Vann Procedure Information Date/Time: 06/29/23 1655 Procedure: Coronary angiography Location: [facility] 3 / [facility] VASCULAR [facility] (Cath) Providers: Ortiz Aquino MD [...] who. Plan discussed with attending. [facility] Note Hospital Medicine History and Physical 06/29/2023 12:51 PM THE HOSPITALIST TEAM PREFERS TO USE [email or web address] CHAT FOR COMMUNICATION 7AM-7PM. IF I DO NOT RESPOND WITHIN 15 MINUTES, PLEASE PAGE ME/CALL THROUGH THE CENTRAL PROCESSING TECH. FROM 7PM-7AM, PLEASE PAGE [phone](COVR) Chief Complaint Direct admission from [facility] for NSTEMI requiring cardiac cath History of Present Illness Vivian Vann is an 63 y.o. female who came from [facility] as direct asmission for NSTEMI. Patient presented 06/28/23 to [facility] for c/o chest pain and lower back pain. Patient troponin level found to be 557 and EKG showed new ischemia and inverted T-waves, NSTEMI. She was given nitroglycerin and started on heparin drip. Patient is 1 year s/p stent placement at [facility] on plavix and aspirin. Dr. Chapa with cardiology agreed to patient transfer here to [facility] with hospital medicine admitting [...] Low back pending. Laboratory workup here at [facility] shows CBC unremarkable w/ [...] nursing note reviewed. Exam conducted with a transit operator present. Constitutional: General: She is not in [...] Date Noted NSTEMI (non-ST elevated myocardial infarction) ([facility]) 06/29/2023 Assessment and Plan Chest pain Low Back Pain NSTEMI -Troponin 557 at [facility], troponin now 0.07 - aPTT 67.3, BN [...] Heparin drip with titratio (more content not included)...[facility]04-05-2023 NoteMicrobiology PROCEDURE: Blood Culture Charcoal [...] Locations R1: [facility] performed at: [email or web address], [address] [place] [address], [address] [place] [address], Fl[facility]vlbMercy HospitalComment on above:Performed By: #### [id number] ####[address] [id number] NoteMicrobiology PROCEDURE: Blood Culture Charcoal [R1] SOURCE: Blood BODY SITE: Arm L COLLECTED DATE/TIME: 08/09/2022 14:09 EDT RECEIVED DATE/TIME: 08/09/2022 14:17 EDT START DATE/TIME: 08/09/2022 14:17 EDT FREE TEXT SOURCE: lt ac Nic PA-C, Clinton C Nic PA-C, Clinton C FINAL REPORTS Final Report [] Verified Date/Time: 08/16/2022 15:58 EDT No growth at 7 days. Performing Locations R1: This test was performed at: [facility], [address] [place] [address], [id number] [place] [address], SltuzeMercy HospitalComment on above:Performed By: #### [id number] ####[place] [id number] Hospital Discharge instructions Patient Education 08/09/2022 16:50:59 [...] Follow these instructions at home: Medicines Take qasz-lhy-dtxqmcb and prescription medicines (inhaled or pills) only [...] 02/07/2006 Document Revised: 04/12/2018 Document Reviewed: 06/04/2017 [employer] Patient Education 2020 [employer] Apps. Follow Up Care 08/09/2022 13:09:28 With:Екатерина Jakob Address: [address] [place], [place] [id number] Business (1) When:08/12/2022 16:50:37 Comments:Call the office [...] you develop any new or worsening symptoms. [facility]03-29-2023 Evaluation + Plan noteExtracted from: Title:ED [...] day(s), # 14 tab(s), Refills(s) 0, Pharmacy: [facility], 170.2, cm, 08/09/22 13:13:00 EDT, Height/Length [...] day(s), # 15 tab(s), Refills(s) 0, Pharmacy: [facility], 170.2, cm, 08/09/22 13:13:00 EDT, Height/Length [...] Charcoal 08/09/22 * Blood Culture Charcoal 08/09/22 [facility]06-23-2022 NoteMR#: [id number] [facility] Pt. Name: Vivian Vann Admitted: 11/01/2021 Discharged: 11/03/2021 Date of : 1960 Physician: Tamie Fajardo MD DISCHARGE SUMMARY PRINCIPAL DIAGNOSIS: Nra-WX-aivpbuond myocardial infarction. SECONDARY DIAGNOSES: 1. Questionable small subsegmental PE in the right lower lobe, favored to be chronic per CT angio done outside facility. 2. Peptic ulcer disease. 3. Depression. 4. Chronic obstructive pulmonary disease. 5. THC use. 6. Nicotine use. HOSPITAL COURSE: Again, the patient was admitted to the hospital on 11/01/2021, with chest pain and she was found to have a hbt-ZR-gwertqtyv [place]. The patient underwent cardiac catheterization and had [...] Fajardo MD Date Trans: 11/03/2021 01:10 P/laura [id number] cc: Gasper Avendano M.D. [facility] [address] [address] Robert M.D. [facility] [address] [facility] [place] [facility] [id number] [facility] Narrative No data available for this section [facility] No data available for this section [facility] No data available for this section [facility] Summary Purpose Family History No Family [...] DATE CREATED AUTHOR AUTHOR'S ORGANIZ ATION 01/06/2022 [facility] DATE CREATED AUTHOR AUTHOR'S ORGANIZ ATION 09/05/2022 [facility] DATE CREATED AUTHOR AUTHOR'S ORGANIZ ATION 07/13/2023 [facility] DATE CREATED AUTHOR AUTHOR'S ORGANIZ ATION 08/04/2023 [facility] DATE CREATED AUTHOR AUTHOR'S ORGANIZ ATION 09/11/2023 [facility] Patient Care team informatio n (unrecognized section and content) Personnel Name: Екатерина Robert MD Address: Address: [address] [place] [address] Personnel Name: Екатерина Robert MD Address: Address: [address] [place] [address] FOR RECORDS PERTAINING TO PATIENTS WHO ARE [...] BE BASED ON THE PRIMARY CLINICAL RECORDS. [facility] [employer] [facility]. provides no warranty or guarantee of the accuracy or completeness of information in this document.
[2024-05-04 10:27] LABS: Troponin I High Sensitivity 53.2 pg/mL (4.0-51.3)
--- NOTE | 2024-05-04 10:54 | P.HP_ITS ---
HPI H&P: HPI History of Present Illness Chief complaint: sob, COPD EXACERBATION, COVID, HYPOXEMIA Narrative: 63-year-old female with history of COPD, currently smoker presents to ER with few days history of worsening productive cough and shortness of breath with wheezing. She also reports generalized aches and pains. In ER upon arrival she was noted to be considerably short of breath along with hypoxia with pulse ox as low as 87% on room air. Workup in ER revealed that patient was positive for COVID-19 infection resulting in COPD exacerbation and respiratory failure with hypoxia requiring supplemental oxygen. She received albuterol and Solu-Medrol in ER. By the time I evaluated her, she was feeling subjectively better compared to her arrival but was still considerably short of breath at rest and on minimal exertion. She is still requiring oxygen supplementation and is c urrently on 2 L of oxygen via nasal cannula Patient denies receiving COVID-vaccine. Her last COPD exacerbation was within a year ago. She has never been on mechanical ventilation for COPD exacerbation. She was treated smoke but has cut down considerably. She is not on any maintenance inhaler on a regular basis Opioid HPI Opioid Management Most Recent Pain and Opioid Data: Last Pain Scale 10 05/04/24 10:02 05/04/24 Last Pain Intensity 0 10/11/23 16:32 10/11/23 Last Pain Assessment 05/04/24 10:02 Last ORT Total Score 1 05/04/24 10:02 05/04/24 Last ORT Risk Category Low Risk 05/04/24 10:02 05/04/24 Ur Phencyclidine Scrn Negative (NEGATIVE) 06/10/23 09:30 05/15 01/04 Review of Systems ROS Status of ROS 10 or more systems reviewed and unremark able except as noted in history and below [facility] Medical History (Updated 05/04/24 @ 11:20 by Shaikh Maddy MD) Hypothyroid ?E03.9 - Hypothyroidism, unspecified (ICD-10) HLD (hyperlipidemia) ?E78.5 - Hyperlipidemia, unspecified (ICD-10) Acute exacerbation of chronic obstructive pulmonary disease ?J44.1 - Chronic obstructive pulmonary disease with (acute) exacerbation (ICD-10) Hypertensive emergency ?I16.1 - Hypertensive emergency (ICD-10) Acute gastroenteritis ?K52.9 - Noninfective gastroenteritis and colitis, unspecified (ICD-10) Hypoxemia ?R09.02 - Hypoxemia (ICD-10) Chest pain ?R07.9 - Chest pain, unspecified (ICD-10) Coronary artery disease ?I25.10 - Atherosclerotic heart disease of nome coronary artery without angina pectoris (ICD-10) Elevated troponin ?R79.89 - Other specified abnormal findings of blood chemistry (ICD-10) Pneumonia ?J18.9 - Pneumonia, unspecified organism (ICD-10) Anxiety ?F41.9 - Anxiety disorder, unspecified (ICD-10) Acute kidney injury ?N17.9 - Acute kidney failure, unspecified (ICD-10) Acute anxiety ?F41.9 - Anxiety disorder, unspecified (ICD-10) Pacemaker ?Z95.0 - Presence of cardiac pacemaker (ICD-10) Iron deficiency anemia ?D50.9 - Iron deficiency anemia, unspecified (ICD-10) COPD (chronic obstructive pulmonary disease) ?J44.9 - Chronic obstructive pulmonary disease, unspecified (ICD-10) Hypoxia ?R09.02 - Hypoxemia (ICD-10) Dyspnea ?R06.00 - Dyspnea, unspecified (ICD-10) Elevated brain natriuretic peptide (BNP) level ?R79.89 - Other specified abnormal findings of blood chemistry (ICD-10) Hypertension ?I10 - Essential (primary) hypertension (ICD-10) Elevated troponin ?R79.89 - Other specified abnormal findings of blood chemistry (ICD-10) Acute dyspnea ?R06.00 - Dyspnea, unspecified (ICD-10) IBS (irritable bowel syndrome) ?K58.9 - Irritable bowel syndrome without diarrhea (ICD-10) Anxiety ?F41.9 - Anxiety disorder, unspecified (ICD-10) Heart attack ?I21.9 - Acute myocardial infarction, unspecified (ICD-10) Sciatic leg pain ?M54.30 - Sciatica, unspecified side (ICD-10) Herniated disc, cervical ?M50.20 - Other cervical disc displacement, unspecified cervical region (ICD- 10) Surgical History History of appendectomy ?Z90.49 - Acquired absence of other specified parts of digestive tract (ICD- 10) History of heart artery stent ?Z95.5 - Presence of coronary angioplasty implant and graft (ICD-10) Family History (Updated 05/04/24 @ 10:45 by Amanda Remy) Mother Family history of CHF (congestive heart failure) Family history of hypertension Father Family history of CHF (congestive heart failure) Brother Family history of CHF (congestive heart failure) Other Family history of diabetes mellitus Family history of myocardial infarction Social History (Updated 05/04/24 @ 10:46 by Amanda Remy) Within the past year, how often did you have a drink containing alcohol: monthly or less Smoking status: Light tobacco smoker Nicotine containing products detail: 1 pack/week Non-prescribed substance use: cannabis (any form) Non-prescribed substance use details: smokes marijuana, gummies Previous occupational history: disabled Highest level of school completed/degree received: high school graduate Are you now , , , , never or living with a partner: In a typical week, how many times do you talk on the telephone with family, friends, or neighbors: once per week How often do you get together with friends or relatives: never How often do you attend pentecostal or hoahaoism services: 4 or more times per year Do you belong to any clubs or organizations such as pentecostal groups unions, Groove or athletic groups, or school groups: no Total score: 1 Score interpretation: A score of less than or equal to 1 indicates the most socially isolated. Little interest or pleasure in doing things: not at all Feeling down, depressed, or hopeless: several days Feel stressed/tense/nervous/anxious/difficulty sleeping: very much Life stressors: recent of family or friend Life stressor details: 2020 lost family Do you think of yourself as: straight/heterosexual Gender Identity: female Meds Home Medications and Allergies Home Medications ?Medication ?Instructions ?Recorded ?Confirmed ?Type alprazolam 1 mg tablet 1 mg PO BID 06/10/23 05/04/24 History aspirin 81 mg tablet,delayed 81 mg PO DAILY 06/10/23 05/04/24 History release atorvastatin 80 mg tablet 80 mg PO DAILY 06/10/23 05/04/24 History buspirone 10 mg tablet 10 mg PO BID 06/10/23 05/04/24 History clopidogrel 75 mg tablet 75 mg PO DAILY 06/10/23 05/04/24 History dapagliflozin propanediol 10 mg 10 mg PO DAILY 06/10/23 05/04/24 History tablet (Farxiga) gabapentin 300 mg capsule 300 mg PO TID 06/10/23 05/04/24 History levothyroxine 75 mcg tablet 75 mcg PO ACB #30 tabs 06/11/23 05/04/24 Rx albuterol sulfate 90 mcg/actuation 1 puff inhalation Q4H PRN 06/29/23 05/04/24 History aerosol inhaler shortness of breath or wheezing pantoprazole 40 mg tablet,delayed 40 mg PO DAILY 06/29/23 05/04/24 History release carvedilol 12.5 mg tablet (Coreg) 12.5 mg PO BID #60 tabs 08/23/23 05/04/24 Rx isosorbide mononitrate 30 mg 30 mg PO QD #30 tabs 08/23/23 05/04/24 Rx tablet,extended release 24 hr nitroglycerin 0.4 mg sublingual 0.4 mg sublingual Q5M PRN chest 08/23/23 05/04/24 Rx tablet pain #30 tabs cyclobenzaprine 10 mg tablet 10 mg PO BID PRN muscle spasm 05/04/24 05/04/24 History tramadol 50 mg tablet 50 mg PO Q6H PRN pain 05/04/24 05/04/24 History trazodone 100 mg tablet 100 mg PO .QHS 05/04/24 05/04/24 History Allergies Allergy/AdvReac Type Severity Reaction Status Date / Time No Known Drug Allergies Allergy Verified 08/20/23 21:47 Exam Constitutional Vital Signs, click to edit/add: Last Vital Signs Temp 98.8 F 05/04/24 10:02 Pulse 82 05/04/24 10:02 Resp 18 05/04/24 10:02 BP 122/74 05/04/24 10:02 Pulse Ox 96 05/04/24 10:02 O2 Del Method Nasal Cannula 05/04/24 10:02 O2 Flow Rate 2 05/04/24 10:02 Documenting provider has reviewed patient's vital signs: yes Common normals: no apparent distress and oriented x3 General appearance: cooperative [facility] Common normals: normocephalic and head/scalp atraumatic Head and scalp: normocephalic and atraumatic Eye Common normals: conjunctivae normal and no scleral icterus Conjunctiva: conjunctiva(e) normal Respiratory Common normals: normal respiratory effort and no use of accessory muscles Effort & inspection: able to speak in complete sentences Auscultation: wheezes and bronchial breath sounds Cardio Common normals: regular rate, S1 normal heart sound and S2 normal heart sound Rate: regular rate Heart sounds: S1 normal and S2 normal GI Common normals: Normal to inspection, nondistended, normoactive bowel sounds present, soft to palpation, non-tender and no hepatosplenomegaly Palpation: soft and no hepatosplenomegaly Extremity Common normals: no clubbing, cyanosis or edema Neuro Common normals: oriented x3, moves all extremities and no focal motor deficits Psych Common normals: mental status grossly normal, denies hallucinations, denies homicidal ideation and denies suicidal ideation Results Labs Labs: Short CBC 05/04/24 Range/Units 06:49 WBC 9.1 (4.0-11.0) 10^3/uL Hgb 12.4 (12.0-16.0) g/dL Hct 40.6 (36.0-48.0) % Plt Count 241 (150-450) 10^3/uL BMP 05/04/24 06:49 Sodium 145 Potassium 4.1 Chloride 108 H Carbon Dioxide 29.5 BUN 15.0 Creatinine 1.11 H Glucose 100 Calcium 8.9 Assessment and Plan Assessment and Plan (1) Acute hypoxemic respiratory failure: Assessment and Plan: Due to COVID-19 and COPD exacerbation. Started patient on IV Solu-Medrol and inhaled DuoNebs. Wean off oxygen as tolerated. (2) Acute exacerbation of chronic obstructive pulmonary disease (COPD): Assessment and Plan: COPD exacerbation likely secondary to COVID-19 infection. Started patient on IV Solu-Medrol and inhaled DuoNebs. Monitor closely and wean off oxygen as tolerated (3) COVID-19: Assessment and Plan: No consolidation on chest x-ray. On azithromycin for COPD exacerbation. On Solu-Medrol and DuoNebs for COPD exacerbation. (4) Hypertension: Assessment and Plan: Blood pressure is stable. Continue with home medications. Qualifiers: Hypertension type: primary hypertension Qualified Code(s): I10 - Essential (primary) hypertension (5) Elevated troponin: Assessment and Plan: Chronically elevated troponin. No symptoms to suggest active cardiac ischemia. Monitor. (6) HLD (hyperlipidemia): Assessment and Plan: Continue with Lipitor. Qualifiers: Hyperlipidemia type: unspecified Qualified Code(s): E78.5 - Hyperlipidemia, unspecified (7) Coronary artery disease: Assessment and Plan: Continue with aspirin, Plavix and statin. Qualifiers: Coronary Disease-Associated Artery/Lesion type: nome artery [place] vs. transplanted heart: nome heart Associated angina: without angina Qualified Code(s): I25.10 - Atherosclerotic heart disease of nome coronary artery without angina pectoris (8) Hypothyroid: Assessment and Plan: Continue with levothyroxine. Qualifiers: Hypothyroidism type: unspecified Qualified Code(s): E03.9 - Hypothyroidism, unspecified
[2024-05-04 11:54] LABS: Glucometer 152 mg/dL (74-106)
[2024-05-04] MEDS: ENOXAPARIN SODIUM 40 MG/0.4 ML SYRINGE SUBQ (11:58)
[2024-05-04] MEDS: CLOPIDOGREL BISULFATE 75 MG TABLET PO (12:02)
[2024-05-04] MEDS: BUSPIRONE HCL 10 MG TABLET PO ×2 (12:02→20:43)
[2024-05-04] MEDS: AZITHROMYCIN 250 MG TABLET 500 MG PO (12:03)
[2024-05-04] MEDS: OXYCODONE HCL 5 MG TABLET PO (12:03)
[2024-05-04] MEDS: ATORVASTATIN CALCIUM 40 MG TABLET 80 MG PO (12:03)
[2024-05-04] MEDS: CARVEDILOL 12.5 MG TABLET PO (12:03)
[2024-05-04] MEDS: ASPIRIN 81 MG TABLET.DR PO (12:04)
[2024-05-04] MEDS: LEVOTHYROXINE SODIUM 75 MCG TABLET PO (12:04)
[2024-05-04] MEDS: OMEPRAZOLE 40 MG CAPSULE.DR PO (12:04)
[2024-05-04] MEDS: ALPRAZOLAM 1 MG TABLET PO ×2 (12:04→20:43)
[2024-05-04] MEDS: INSULIN ASPART 300 UNIT/3 ML PEN SUBQ ×3 (12:05→22:31)
[2024-05-04] MEDS: ISOSORBIDE MONONITRATE 30 MG TAB.ER.24H PO (12:05)
[2024-05-04] MEDS: GABAPENTIN 300 MG CAPSULE PO ×2 (15:49→22:22)
[2024-05-04] MEDS: METHYLPREDNISOLONE SOD SUCC PF 40 MG/ML VIAL IVP (15:51)
[2024-05-04 17:24] LABS: Glucometer 186 mg/dL (74-106)
--- NOTE | 2024-05-04 19:18 | PC.NURSE ---
Patient took continuos pulse ox monitor off and had her oxygen off while in bathroom. RN reminded she needed both on for her health and safety.
[2024-05-04] MEDS: ONDANSETRON PF 4 MG/2 ML VIAL IV (22:22)
[2024-05-04] MEDS: TRAZODONE HCL 50 MG TABLET 100 MG PO (22:22)
[2024-05-04 22:31] LABS: Glucometer 317 mg/dL (74-106)
[2024-05-05] VITALS (20 sets, daily range): BP systolic 105–133; BP diastolic 68–88; PULSE 79–92; TEMP 36.4–37.1; O2SAT 87–99
[2024-05-05] MEDS: METHYLPREDNISOLONE SOD SUCC PF 40 MG/ML VIAL IVP ×4 (01:28→23:51)
[2024-05-05] MEDS: IPRATROPIUM/ALBUTEROL SULFATE 3 ML AMPUL.NEB IH ×4 (05:12→23:12)
[2024-05-05] MEDS: GABAPENTIN 300 MG CAPSULE PO ×3 (05:47→21:42)
[2024-05-05] MEDS: LEVOTHYROXINE SODIUM 75 MCG TABLET PO (05:47)
[2024-05-05 05:48] LABS: Basophils Percent Auto 0.1 % (0.2-2.0); Hematocrit 36.7 % (36.0-48.0); Hemoglobin 11.2 g/dL (12.0-16.0); Immature Granulocytes Abs Auto 0.04 10^3/uL (0.00-0.03); Immature Granulocytes Pct Auto 0.3 % (0.0-0.5); Lymphocytes Absolute Auto 1.1 10^3/uL (1.2-3.8); Lymphocytes Percent Auto 8.5 % (20.5-60.0); Mean Corpuscular HGB Conc 30.5 g/dL (29.9-35.2); Mean Corpuscular Hemoglobin 27.3 pg (26.7-34.0); Mean Corpuscular Volume 89.3 fL (81.0-99.0); Mean Platelet Volume 11.2 fL (9.5-13.5); Monocytes Absolute Auto 0.7 10^3/uL (0.3-0.8); Monocytes Percent Auto 5.5 % (1.7-12.0); Neutrophils Absolute Auto 10.6 10^3/uL (1.4-6.5); Neutrophils Percent Auto 85.6 % (43.0-75.0); Platelet Count 228 10^3/uL (150-450); Red Blood Count 4.11 10^6/uL (4.20-5.40); Red Cell Distribution Width 15.2 % (11.0-15.0); White Blood Count 12.4 10^3/uL (4.0-11.0)
[2024-05-05] MEDS: OXYCODONE HCL 5 MG TABLET PO ×2 (05:51→16:02)
--- OUTSIDE RECORDS SUMMARY | 2024-05-05 06:04 | XMS_ITS | CCD ---
Author Organization [facility] ion [facility] Care Team Providers Care Central Office Frame Wirer Name Role Phone KEISHA DORADO JR Attending [...] DR WILLAMS Consulting Unavailable JOSELINEY ., DR WLILAMS Attending Unavailable HOY ., [...] Unavailable DENEEN ., DR SHEPHERD Consulting Unavailable JAKBO .DR WILLAMS Consulting Unavailable JOSELINEY ., DR [...] source) bee venom Drug allergy (disorder) 1 [facility] Repository (1 source) house dust allergenic extract; 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: [HOUSE DUST] Drug Allergy 4 [facility] Repository (1 source) BEE VENOM PROTEIN (HONEY BEE); 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: [BEE VENOM PROTEIN (HONEY BEE)] Propensity to adverse reactions to drug (disorder) 4 [facility] Repository (1 source) HAY FEVER AND ALLERGY RELIEF; 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: [HAY FEVER AND ALLERGY RELIEF] Propensity to adverse reactions to drug (disorder) 4 [facility] Repository Medications Current Medications Medication Drug [...] oral solution (2 sources) alpha-Adrenergic Agonist, Uncompetitive W-jmjbwk-W-aspart ate Receptor Antagonist, Sigma-1 Agonist Start: 08-10-19 [...] day(s), # 14 tab(s), Refills(s) 0, Pharmacy: [facility] 1155, 170.2, cm, 08/09/22 13:13:00 EDT, [...] day(s), # 15 tab(s), Refills(s) 0, Pharmacy: [facility] 1155, 170.2, cm, 08/09/22 13:13:00 EDT, [...] disease (6 sources) 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; 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: [Old [...] 2 Chronic Other aftercare (1 source) Other fpc (current) drug therapy; 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: [OTH 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 KISS 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 CURRENT DRUG THERAPY] Onset: 3 Episodic Other aftercare (1 source) prison (current) use of aspirin; 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: [FPC CURRENT USE OF ASPIRIN] Onset: 3 Episodic Other aftercare (1 source) prison (current) use of antithrombotics/antipl atelets; 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: [FPC ANTITHROMBOT/ANTIPLATL ETS] Onset: 3 Episodic Other aftercare (1 source) terminologist (current) use of oral hypoglycemic drugs; 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: [FPC USE ORAL HYPOGLYCEMIC DX] Onset: 3 Episodic [...] Range Facility Office Visiton 09-10-2023 Follow-up visit [id number] Vivian Vann 1960 F Date Provider Department Center 09/10/2023 [id number], EHAB CARD Deirdre Hos No family history on file Level of Service:01550 NM OFFICE/OUTPATIENT ESTABLISHED LOW MDM 20 MIN Normal [facility] 30on 08-11-2023 30 Daily Case Managemen t Update Multidisciplinary rounds have been completed. Barriers to Discharge: Patient is medically ready for discharge at this time. AVS has been completed. Patient will discharge to home. No further OTM needs at this time. [facility] will continue to follow patient [...] appropriate for patient?: Yes New Consults: Normal [facility] 30 The patient is Moderately [...] and maintained or improved Outcome: Progressing Normal [facility] BASIC METABOLIC PANELon 07-14 Anion gap [Moles/Vol] 13 mmol/L Normal 7-20 [facility] Comment on above: Performed By: #### L [id number] ####[facility] [[email or web address]] LAB (BEAKER)[address] [place] [address] Calcium [Mass/Vol] 9.0 mg/dL Normal 8.6-10.3 [facility] Comment on above: Performed By: #### L [id number] ####[facility] [[email or web address]] LAB (BEAKER)[address] [place] [address] Chloride [Moles/Vol] 97 mmol/L Low 98-107 [facility] Comment on above: Performed By: #### L [id number] ####[facility] [[email or web address]] LAB (BEAKER)[address] [place] [address] CO2 [Moles/Vol] 29 mmol/L Normal 21-31 [facility] Comment on above: Performed By: #### L [id number] ####[facility] [[email or web address]] LAB ([facility])[address] [place] [address] Creatinine [Mass/Vol] 1.06 mg/dL Normal 0.60-1.20 [facility] Comment on above: Performed By: #### L [id number] ####[facility] [[email or web address]] LAB ([facility])[address] [place] [address] GLOMERULAR FILTRATION RATE ML/MIN/1.73 SQ M.PREDICTED 59.4 mL/min/1.73m*2 Low >60.0 [facility] Comment on above: Result Comment: The [facility]???s estimated glomerular filtration rate (eGFR) will [...] AB15 ####[facility] [[email or web address]] LAB ([facility])[address] [place] [address] Glucose [Mass/Vol] 178 mg/dL High 70-100 [facility] Comment on above: Performed By: #### L [id number] ####[facility] [[email or web address] LAB ([facility])[address] [facility] [place] [address] Potassium [Moles/Vol] 4.3 mmol/L Normal 3.5-5.1 [facility] Comment on above: Performed By: #### L [id number] ####[facility] [[email or web address]] LAB ([facility])[address] [place] [address] Sodium [Moles/Vol] 135 mmol/L Low 136-145 [facility] Comment on above: Performed By: #### L [id number] ####[facility] [[email or web address]] LAB (BEAKER)[address] [place] [address] Urea nitrogen [Mass/Vol] 20 mg/dL Normal 7-25 [facility] Comment on above: Performed By: #### L [id number] ####[facility] [[email or web address]] LAB (BEAKER)[address] [place] [address] UREA NITROGEN/CREATININE (MASS RATIO) IN SER/PLAS 18.9 Normal [facility] Comment on above: Performed By: #### L [id number] ####[facility] [[email or web address] [place] [address] CBCon 08-11-2023 Erythrocyte distribution width (RBC) [Ratio] 17.0 % High 11.5-15.0 [facility] Comment on above: Performed By: #### L [id number] #### [facility] [[email or web address] LAB [facility] [address] [place] [address] ERYTHROCYTE MEAN CORPUSCULAR HEMOGLOBIN CONCENTRATION (G/DL) BY AUTOMATED 31.6 g/dL Low 32.0-35.0 [facility] Comment on above: Performed By: #### L [id number] #### [facility] [[email or web address] LAB [facility] [address] [place] [address] Hematocrit (Bld) [Volume fraction] 40.8 % Normal 36.0-48.0 [facility] Comment on above: Performed By: #### L [id number] #### [facility] [[email or web address]] LAB (BEAKER) [address] [place] [address] Hemoglobin (Bld) [Mass/Vol] 12.9 g/dL Normal 12.0-15.0 [facility] Comment on above: Performed By: #### L [id number] #### [facility] [[email or web address]] LAB (BEAKER) [address] [place] [address] MCH (RBC) [Entitic mass] 28.0 pg Normal 27.0-33.0 [facility] Comment on above: Performed By: #### L [id number] #### [facility] [[email or web address]] LAB (BEAKER) [address] [place] [address] MCV (RBC) [Entitic vol] 88.5 fL Normal 82.0-98.0 [facility] Comment on above: Performed By: #### L [id number] #### [facility] [[email or web address]] LAB ([facility]) [address] [place] [address] PLATELETS (10*3/UL) IN BLOOD AUTOMATED COUNT 239 10*3/uL Normal 150-400 [facility] Comment on above: Performed By: #### L [id number] #### [facility] [[email or web address]] LAB ([facility]) [address] [place] [address] RBC (Bld) [#/Vol] 4.61 10*6/uL Normal 3.80-5.00 [facility] Comment on above: Performed By: #### L [id number] #### [facility] [[email or web address] LAB ([facility]) [address] [place] [address] WBC (Bld) [#/Vol] 7.21 10*3/uL Normal 4.00-10.60 [facility] Comment on above: Performed By: #### L [id number] #### [facility] [[email or web address]] LAB ([facility]) [address] [place] [address] NURSNOTEon 08-11-2023 NURSNOTE Pt discharged via wheelchair without incident [facility] NURSNOTE AVS reviewed with patient, pt verifies understanding Normal [facility] 08-10-2023 30 The patient is Moderately [...] and maintained or improved Outcome: Progressing Normal [facility] HPon 08-10-2023 History Of Present Illness [...] initial encounter Reposition lead Loree Chance MD [facility] NURSNOTEon 08-10-2023 NURSNOTE CHG wipes and betadine nasal swabs completed. [facility] 07-13-2023 36 Pts phone line is no t working [facility] 07-12-2023 36 Unable to reach pt o r leave message, phone line not in service [facility] 36 Patients phone is no t in working order. Tried calling pts ER contact but it is a food pantry and was only a VM option. Did not leave message. [facility] 07-11-2023 30 The patient is Moderately Stable [...] include na. [facility] 30 The patient is Moderately Stable - [...] safe level of function Outcome: Progressing Normal [facility] BASIC METABOLIC PANELon - Anion gap [Moles/Vol] 15 mmol/L Normal 7-20 [facility] Comment on above: Performed By: #### L [id number] #### [facility] ([facility]) [address] [place] [address] Calcium [Mass/Vol] 9.4 mg/dL Normal 8.6-10.3 [facility] Comment on above: Performed By: #### L [id number] #### [facility] [[email or web address]] LAB (AKER) [address] [place] [address] Chloride [Moles/Vol] 97 mmol/L Low 98-107 [facility] Comment on above: Performed By: #### L [id number] #### [facility] [[email or web address]] LAB (BEAKER) [address] [place] [address] CO2 [Moles/Vol] 27 mmol/L Normal 21-31 [facility] Comment on above: Performed By: #### L [id number] #### [facility] [[email or web address]] LAB (AKER) [address] [place] [address] Creatinine [Mass/Vol] 1.15 mg/dL Normal 0.60-1.20 [facility] Comment on above: Performed By: #### L [id number] #### [facility] [[email or web address]] LAB ([facility]) [address] [place] [address] GLOMERULAR FILTRATION RATE ML/MIN/1.73 SQ M.PREDICTED 53.9 mL/min/1.73m*2 Low >60.0 [facility] Comment on above: Result Comment: The [facility]???s estimated glomerular filtration rate (eGFR) will [...] individuals. Performed By: #### L [id number] #### [facility] [[email or web address]] LAB ([facility]) [address] [place] [address] Glucose [Mass/Vol] 143 mg/dL High 70-100 [facility] Comment on above: Performed By: #### L [id number] #### [facility] [[email or web address]] LAB ([facility]) [address] [place] [address] Potassium [Moles/Vol] 3.9 mmol/L Normal 3.5-5.1 [facility] Comment on above: Performed By: #### L [id number] #### [facility] [[email or web address]] LAB ([facility]) [address] [place] [address] Sodium [Moles/Vol] 135 mmol/L Low 136-145 [facility] Comment on above: Performed By: #### L [id number] #### [facility] [[email or web address]] LAB ([facility]) [address] [place] [address] Urea nitrogen [Mass/Vol] 32 mg/dL High 7-25 [facility] Comment on above: Performed By: #### L [id number] #### [facility] [[email or web address]] LAB ([facility]) [address] [place] [address] UREA NITROGEN/CREATININE (MASS RATIO) IN SER/PLAS 27.8 Normal [facility] Comment on above: Performed By: #### L [id number] #### [facility] [[email or web address] LAB ([facility]) [address] [place] [address] CBC WITH AUTO DIFFERENTIALon 07-11-2023 Basophils (Bld) [#/Vol] 0.03 10*3/uL Normal 0.00-0.20 [facility] Comment on above: Performed By: #### L [id number] #### [facility] [[email or web address] LAB ([facility]) [address] [place] [address] Basophils/100 WBC (Bld) 0.3 % Normal 0.0-1.0 [facility] Comment on above: Performed By: #### L [id number] #### [facility] [[email or web address] LAB ([facility]) [address] [place] [address] Eosinophils (Bld) [#/Vol] 0.32 10*3/uL Normal 0.00-0.50 [facility] Comment on above: Performed By: #### L [id number] #### [facility] [[email or web address]] LAB ([facility]) [address] [place] [address] Eosinophils/100 WBC (Bld) 2.8 % Normal 0.0-6.0 [facility] Comment on above: Performed By: #### L [id number] #### [facility] [[email or web address]] LAB ([facility]) [address] [place] [address] Erythrocyte distribution width (RBC) [Ratio] 15.3 % High 11.5-15.0 [facility] Comment on above: Performed By: #### L [id number] #### [facility] [[email or web address]] LAB ([facility]) [address] [place] [address] ERYTHROCYTE MEAN CORPUSCULAR HEMOGLOBIN CONCENTRATION (G/DL) BY AUTOMATED 32.0 g/dL Normal 32.0-35.0 [facility] Comment on above: Performed By: #### L [id number] #### [facility] [[email or web address] [address] [place] [address] Hematocrit (Bld) [Volume fraction] 40.9 % Normal 36.0-48.0 [facility] Comment on above: Performed By: #### L [id number] #### [facility] [[email or web address]] LAB (BEAKER) [address] [place] [address] Hemoglobin (Bld) [Mass/Vol] 13.1 g/dL Normal 12.0-15.0 [facility] Comment on above: Performed By: #### L [id number] #### [facility] [[email or web address] LAB ([facility]) [address] [place] [address] Immature granulocytes (Bld) [#/Vol] 0.04 10*3/uL Normal 0.00-0.20 [facility] Comment on above: Performed By: #### L [id number] #### [facility] [[email or web address]] LAB ([facility]) [address] [place] [address] Immature granulocytes/100 WBC (Bld) 0.3 % Normal 0.0-1.0 [facility] Comment on above: Performed By: #### L [id number] #### [facility] [[email or web address] LAB ([facility]) [address] [place] [address] Lymphocytes (Bld) [#/Vol] 3.16 10*3/uL Normal 1.20-4.00 [facility] Comment on above: Performed By: #### L [id number] #### [facility] [[email or web address]] LAB ([facility]) [address] [place] [address] Lymphocytes/100 WBC (Bld) 27.4 % Normal 20.0-45.0 [facility] Comment on above: Performed By: #### L [id number] #### [facility] [[email or web address] LAB [facility] [address] [place] [address] MCH (RBC) [Entitic mass] 27.9 pg Normal 27.0-33.0 [facility] Comment on above: Performed By: #### L [id number] #### [facility] [[email or web address]] LAB (BEAKER) [address] [place] [address] MCV (RBC) [Entitic vol] 87.0 fL Normal 82.0-98.0 [facility] Comment on above: Performed By: #### L [id number] #### [facility] [[email or web address]] LAB (BEAKER) [address] [place] [address] Monocytes (Bld) [#/Vol] 0.85 10*3/uL Normal 0.10-1.00 [facility] Comment on above: Performed By: #### L [id number] #### [facility] [[email or web address]] LAB (BEAKER) [address] [place] [address] Monocytes/100 WBC (Bld) 7.4 % Normal 5.0-12.0 [facility] Comment on above: Performed By: #### L [id number] #### [facility] [[email or web address]] LAB (BEAKER) [address] [place] [address] Neutrophils (Bld) [#/Vol] 7.12 10*3/uL Normal 1.60-7.60 [facility] Comment on above: Performed By: #### L [id number] #### [facility] [[email or web address] LAB ([facility]) [address] [place] [address] Neutrophils/100 WBC (Bld) 61.8 % Normal 40.0-72.0 [facility] Comment on above: Performed By: #### L [id number] #### [facility] [[email or web address]] LAB ([facility]) [address] [place] [address] NRBC (PER 100 WBCS) BY AUTOMATED COUNT 0.0 % Normal 0 [facility] Comment on above: Performed By: #### L [id number] #### [facility] [[email or web address]] LAB (BEAKER) [address] [place] [address] PLATELETS (10*3/UL) IN BLOOD AUTOMATED COUNT 339 10*3/uL Normal 150-400 [facility] Comment on above: Performed By: #### L [id number] #### [facility] [[email or web address]] LAB (BEAKER) [address] [place] [address] RBC (Bld) [#/Vol] 4.70 10*6/uL Normal 3.80-5.00 [facility] Comment on above: Performed By: #### L [id number] #### [facility] [[email or web address]] LAB (BEAKER) [address] [place] [address] WBC (Bld) [#/Vol] 11.52 10*3/uL High 4.00-10.60 [facility] Comment on above: Performed By: #### L [id number] #### [facility] (BEAKER) [address] [place] [address] 30on 07-10-2023 30 Problem: Pain - Adul [...] complex ne (more content not included)... Normal [facility] 30 Daily Case Managemen t Update [...] Consultation Consultation and Management 07/06/23 1050 Normal [facility] 30 The patient is Moderately [...] behaviors that affect risk of falls [place] fall precautions as indicated by assessment Educate [...] and prevent overall improvement and discharge Normal [facility] BASIC METABOLIC PANELon - Anion gap [Moles/Vol] 13 mmol/L Normal 7-20 [facility] Comment on above: Performed By: #### L [id number] ####[facility] [[email or web address]] LAB (BEAKER)[address] [place] [address] Calcium [Mass/Vol] 9.9 mg/dL Normal 8.6-10.3 [facility] Comment on above: Performed By: #### L [id number] ####[facility] [[email or web address]] LAB (BEAKER)[address] [place] [address] Chloride [Moles/Vol] 97 mmol/L Low 98-107 [facility] Comment on above: Performed By: #### L [id number] ####[facility] [[email or web address]] LAB (BEAKER)[address] [place] [address] CO2 [Moles/Vol] 30 mmol/L Normal 21-31 [facility] Comment on above: Performed By: #### L [id number] ####[facility] LAB (BEAKER)[address] [place] [address] Creatinine [Mass/Vol] 1.06 mg/dL Normal 0.60-1.20 [facility] Comment on above: Performed By: #### L [id number] ####[facility] [[email or web address]] LAB (BEAKER)[address] [place] [address] GLOMERULAR FILTRATION RATE ML/MIN/1.73 SQ M.PREDICTED 59.4 mL/min/1.73m*2 Low >60.0 [facility] Comment on above: Result Comment: [facility]???s estimated glomerular filtration rate (eGFR) will [...] AB15 ####[facility] [[email or web address]] LAB ([facility])[address] [place] [address] Glucose [Mass/Vol] 139 mg/dL High 70-100 [facility] Comment on above: Performed By: #### L [id number] ####[facility] [[email or web address] LAB ([facility])[address] [place] [address] Potassium [Moles/Vol] 3.9 mmol/L Normal 3.5-5.1 [facility] Comment on above: Performed By: #### L [id number] ####[facility] [[email or web address]] LAB ([facility])[address] [place] [address] Sodium [Moles/Vol] 136 mmol/L Normal 136-145 [facility] Comment on above: Performed By: #### L [id number] ####[email or web address] [place] [address] Urea nitrogen [Mass/Vol] 23 mg/dL Normal 7-25 [facility] Comment on above: Performed By: #### L [id number] ####[facility] [[email or web address] [place] [address] UREA NITROGEN/CREATININE (MASS RATIO) IN SER/PLAS 21.7 Normal [facility] Comment on above: Performed By: #### L [id number] ####[facility] [[email or web address] LAB ([facility])[address] [place] [address] CBC WITH AUTO DIFFERENTIALon 07-10-2023 Basophils (Bld) [#/Vol] 0.02 10*3/uL Normal 0.00-0.20 [facility] Comment on above: Performed By: #### L [id number] ####[facility] LAB (BEAKER)[address] [place] [address] Basophils/100 WBC (Bld) 0.2 % Normal 0.0-1.0 [facility] Comment on above: Performed By: #### L [id number] ####[facility] [[email or web address]] LAB (BEAKER)[address] [place] [address] Eosinophils (Bld) [#/Vol] 0.53 10*3/uL High 0.00-0.50 [facility] Comment on above: Performed By: #### L [id number] ####[facility] [[email or web address]] LAB (BEAKER)[address] [place] [address] Eosinophils/100 WBC (Bld) 5.0 % Normal 0.0-6.0 [facility] Comment on above: Performed By: #### L [id number] ####[facility] [[email or web address]] LAB (BEAKER)[address] [place] [address] Erythrocyte distribution width (RBC) [Ratio] 15.3 % High 11.5-15.0 [facility] Comment on above: Performed By: #### L [id number] ####[facility] [[email or web address]] LAB (BEAKER)[address] [place] [address] ERYTHROCYTE MEAN CORPUSCULAR HEMOGLOBIN CONCENTRATION (G/DL) BY AUTOMATED 32.9 g/dL Normal 32.0-35.0 [facility] Comment on above: Performed By: #### L [id number] ####[facility] [[email or web address]] LAB (BEAKER)[address] [place] [address] Hematocrit (Bld) [Volume fraction] 42.6 % Normal 36.0-48.0 [facility] Comment on above: Performed By: #### L [id number] ####[facility] [[email or web address]] LAB (BEAKER)[address] [place] [address] Hemoglobin (Bld) [Mass/Vol] 14.0 g/dL Normal 12.0-15.0 [facility] Comment on above: Performed By: #### L [id number] ####[facility] [email or web address]] [facility] [place] [address] Immature granulocytes (Bld) [#/Vol] 0.02 10*3/uL Normal 0.00-0.20 [facility] Comment on above: Performed By: #### L [id number] ####[facility] [[email or web address] LAB ([facility])[address] [place] [address] Immature granulocytes/100 WBC (Bld) 0.2 % Normal 0.0-1.0 [facility] Comment on above: Performed By: #### L [id number] ####[facility] [[email or web address] LAB ([facility])[address] [place] [address] Lymphocytes (Bld) [#/Vol] 3.34 10*3/uL Normal 1.20-4.00 [facility] Comment on above: Performed By: #### L [id number] ####[facility] [[email or web address] ([facility] [place] [address] Lymphocytes/100 WBC (Bld) 31.7 % Normal 20.0-45.0 [facility] Comment on above: Performed By: #### L [id number] ####[facility] [[email or web address] ([facility] [place] [address] MCH (RBC) [Entitic mass] 28.3 pg Normal 27.0-33.0 [facility] Comment on above: Performed By: #### L [id number] ####[facility] [[email or web address] ([facility] [place] [address] MCV (RBC) [Entitic vol] 86.2 fL Normal 82.0-98.0 [facility] Comment on above: Performed By: #### L [id number] ####[facility] [[email or web address]] LAB ([facility])[address] [place] [address] Monocytes (Bld) [#/Vol] 0.60 10*3/uL Normal 0.10-1.00 [facility] Comment on above: Performed By: #### L [id number] ####[facility] [[email or web address] ([facility] [place] [address] Monocytes/100 WBC (Bld) 5.7 % Normal 5.0-12.0 [facility] Comment on above: Performed By: #### L [id number] ####[facility] [[email or web address] ([facility] [place] [address] Neutrophils (Bld) [#/Vol] 6.01 10*3/uL Normal 1.60-7.60 [facility] Comment on above: Performed By: #### L [id number] ####[facility] [[email or web address] LAB ([facility])[address] [place] [address] Neutrophils/100 WBC (Bld) 57.2 % Normal 40.0-72.0 [facility] Comment on above: Performed By: #### L [id number] ####[facility] [[email or web address] LAB ([facility])[address] [place] [address] NRBC (PER 100 WBCS) BY AUTOMATED COUNT 0.0 % Normal 0 [facility] Comment on above: Performed By: #### L [id number] ####[facility] [[email or web address] LAB ([facility])[address] [place] [address] PLATELETS (10*3/UL) IN BLOOD AUTOMATED COUNT 329 10*3/uL Normal 150-400 [facility] Comment on above: Performed By: #### L [id number] ####[facility] [[email or web address] LAB ([facility])[address] [place] [address] RBC (Bld) [#/Vol] 4.94 10*6/uL Normal 3.80-5.00 [facility] Comment on above: Performed By: #### L [id number] ####[facility] [[email or web address] ([facility] [place] [address] WBC (Bld) [#/Vol] 10.52 10*3/uL Normal 4.00-10.60 [facility] Comment on above: Performed By: #### L [id number] ####[facility] [[email or web address]] LAB ([facility])[address] [place] [address] on 07-10-2023 History Of Present Illness Vivian [...] Chance MD [facility] 30on 07-09-2023 30 Problem: Cardiovascular - Adult [...] the shift include pacemaker placement without issues [facility] 30 Daily Case Managemen t Update Multidisciplinary [...] Consultation Consultation and Management 02/23/24 1050 Normal [facility] BASIC METABOLIC PANELon 02-2 Anion gap [Moles/Vol] 9 mmol/L Normal 7-20 [facility] Comment on above: Performed By: #### L [id number] #### [facility] [[email or web address]] LAB ([facility]) [address] [place] [address] Calcium [Mass/Vol] 9.1 mg/dL Normal 8.6-10.3 [facility] Comment on above: Performed By: #### L [id number] #### [facility] [[email or web address] LAB ([facility] [address] [place] [address] Chloride [Moles/Vol] 99 mmol/L Normal 98-107 [facility] Comment on above: Performed By: #### L [id number] #### [facility] [[email or web address] LAB ([facility] [address] [place] [address] CO2 [Moles/Vol] 32 mmol/L High 21-31 [facility] Comment on above: Performed By: #### L [id number] #### [facility] [[email or web address]] LAB ([facility]) [address] [place] [address] Creatinine [Mass/Vol] 0.98 mg/dL Normal 0.60-1.20 [facility] Comment on above: Performed By: #### L [id number] #### [facility] [[email or web address] LAB ([facility] [address] [place] [address] GLOMERULAR FILTRATION RATE ML/MIN/1.73 SQ M.PREDICTED 65.3 mL/min/1.73m*2 Normal >60.0 [facility] Comment on above: Result Comment: [facility]???s estimated glomerular filtration rate (eGFR) will [...] #### [facility] [[email or web address] LAB ([facility]) [address] [place] [address] Glucose [Mass/Vol] 131 mg/dL High 70-100 [facility] Comment on above: Performed By: #### L [id number] #### [facility] [[email or web address] LAB ([facility]) [address] [place] [address] Potassium [Moles/Vol] 4.3 mmol/L Normal 3.5-5.1 [facility] Comment on above: Performed By: #### L [id number] #### [facility] [[email or web address]] LAB ([facility]) [address] [place] [address] Sodium [Moles/Vol] 136 mmol/L Normal 136-145 [facility] Comment on above: Performed By: #### L [id number] #### [facility] [[email or web address] LAB ([facility]) [address] [place] [address] Urea nitrogen [Mass/Vol] 23 mg/dL Normal 7-25 [facility] Comment on above: Performed By: #### L [id number] #### [facility] [[email or web address] LAB ([facility]) [address] [place] [address] UREA NITROGEN/CREATININE (MASS RATIO) IN SER/PLAS 23.5 Normal [facility] Comment on above: Performed By: #### L [id number] #### [facility] [[email or web address] LAB ([facility]) [address] [place] [address] CBC WITH AUTO DIFFERENTIALon 07-09-2023 Basophils (Bld) [#/Vol] 0.03 10*3/uL Normal 0.00-0.20 [facility] Comment on above: Performed By: #### L [id number] #### [facility] [[email or web address] LAB ([facility]) [address] [place] [address] Basophils/100 WBC (Bld) 0.3 % Normal 0.0-1.0 [facility] Comment on above: Performed By: #### L [id number] #### [facility] [[email or web address] ([facility] [address] [place] [address] Eosinophils (Bld) [#/Vol] 0.54 10*3/uL High 0.00-0.50 [facility] Comment on above: Performed By: #### L [id number] #### [facility] [[email or web address] LAB ([facility]) [address] [place] [address] Eosinophils/100 WBC (Bld) 4.9 % Normal 0.0-6.0 [facility] Comment on above: Performed By: #### L [id number] #### [facility] [[email or web address]] LAB ([facility]) [address] [place] [address] Erythrocyte distribution width (RBC) [Ratio] 15.0 % Normal 11.5-15.0 [facility] Comment on above: Performed By: #### L [id number] #### [facility] [[email or web address]] LAB ([facility]) [address] [place] [address] ERYTHROCYTE MEAN CORPUSCULAR HEMOGLOBIN CONCENTRATION (G/DL) BY AUTOMATED 32.8 g/dL Normal 32.0-35.0 [facility] Comment on above: Performed By: #### L [id number] #### [facility] [[email or web address] LAB ([facility]) [address] [place] [address] Hematocrit (Bld) [Volume fraction] 37.5 % Normal 36.0-48.0 [facility] Comment on above: Performed By: #### L [id number] #### [facility] [[email or web address] LAB ([facility]) [address] [place] [address] Hemoglobin (Bld) [Mass/Vol] 12.3 g/dL Normal 12.0-15.0 [facility] Comment on above: Performed By: #### L [id number] #### [facility] [[email or web address] ([facility] [address] [place] [address] Immature granulocytes (Bld) [#/Vol] 0.03 10*3/uL Normal 0.00-0.20 [facility] Comment on above: Performed By: #### L [id number] #### [facility] [[email or web address]] LAB ([facility]) [address] [place] [address] Immature granulocytes/100 WBC (Bld) 0.3 % Normal 0.0-1.0 [facility] Comment on above: Performed By: #### L [id number] #### [facility] [[email or web address] ([facility] [address] [place] [address] Lymphocytes (Bld) [#/Vol] 3.76 10*3/uL Normal 1.20-4.00 [facility] Comment on above: Performed By: #### L [id number] #### [facility] [[email or web address] LAB ([facility]) [address] [place] [address] Lymphocytes/100 WBC (Bld) 34.1 % Normal 20.0-45.0 [facility] Comment on above: Performed By: #### L [id number] #### [facility] [[email or web address] LAB ([facility]) [address] [place] [address] MCH (RBC) [Entitic mass] 28.5 pg Normal 27.0-33.0 [facility] Comment on above: Performed By: #### L [id number] #### [facility] [[email or web address] LAB ([facility]) [address] [place] [address] MCV (RBC) [Entitic vol] 87.0 fL Normal 82.0-98.0 [facility] Comment on above: Performed By: #### L [id number] #### [facility] [[email or web address] LAB ([facility]) [address] [place] [address] Monocytes (Bld) [#/Vol] 0.64 10*3/uL Normal 0.10-1.00 [facility] Comment on above: Performed By: #### L [id number] #### [facility] [[email or web address] [address] [place] [address] Monocytes/100 WBC (Bld) 5.8 % Normal 5.0-12.0 [facility] Comment on above: Performed By: #### L [id number] #### [facility] [[email or web address]] LAB ([facility]) [address] [place] [address] Neutrophils (Bld) [#/Vol] 6.03 10*3/uL Normal 1.60-7.60 [facility] Comment on above: Performed By: #### L [id number] #### [facility] [[email or web address] LAB ([facility]) [address] [place] [address] Neutrophils/100 WBC (Bld) 54.6 % Normal 40.0-72.0 [facility] Comment on above: Performed By: #### L [id number] #### [facility] [[email or web address] LAB ([facility]) [address] [place] [address] NRBC (PER 100 WBCS) BY AUTOMATED COUNT 0.0 % Normal 0 [facility] Comment on above: Performed By: #### L [id number] #### [facility] [[email or web address] LAB ([facility]) [address] [place] [address] PLATELETS (10*3/UL) IN BLOOD AUTOMATED COUNT 285 10*3/uL Normal 150-400 [facility] Comment on above: Performed By: #### L [id number] #### [facility] [[email or web address] LAB ([facility]) [address] [place] [address] RBC (Bld) [#/Vol] 4.31 10*6/uL Normal 3.80-5.00 [facility] Comment on above: Performed By: #### L [id number] #### [facility] [[email or web address] LAB ([facility]) [address] [place] [address] WBC (Bld) [#/Vol] 11.03 10*3/uL High 4.00-10.60 [facility] Comment on above: Performed By: #### L [id number] #### [facility] [[email or web address] LAB ([facility]) [address] [place] [address] 30on 07-08-2023 30 The patient is Moderately [...] Maintains adequate nutritional intake Outcome: Progressing Normal [facility] 30 Problem: Cardiovascular - Adult Goal: [...] for the shift include stable bp Normal [facility] BASIC METABOLIC PANELon 06-15 Anion gap [Moles/Vol] 10 mmol/L Normal 7-20 [facility] Comment on above: Performed By: #### L [id number] ####[facility] [[email or web address]] LAB ([facility])[address] [place] [address] Calcium [Mass/Vol] 9.0 mg/dL Normal 8.6-10.3 [facility] Comment on above: Performed By: #### L [id number] ####[facility] [[email or web address]] LAB ([facility])[address] [place] [address] Chloride [Moles/Vol] 97 mmol/L Low 98-107 [facility] Comment on above: Performed By: #### L [id number] ####[facility] [[email or web address]] LAB ([facility])[address] [place] [address] CO2 [Moles/Vol] 33 mmol/L High 21-31 [facility] Comment on above: Performed By: #### L [id number] ####[facility] [[email or web address]] LAB ([facility])[address] [place] [address] Creatinine [Mass/Vol] 1.30 mg/dL High 0.60-1.20 [facility] Comment on above: Performed By: #### L [id number] ####[facility] [[email or web address] ([facility] [place] [address] GLOMERULAR FILTRATION RATE ML/MIN/1.73 SQ M.PREDICTED 46.5 mL/min/1.73m*2 Low >60.0 [facility] Comment on above: Result Comment: [facility]???s estimated glomerular filtration rate (eGFR) will [...] AB15 ####[facility] [[email or web address]] LAB ([facility])[address] [place] [address] Glucose [Mass/Vol] 214 mg/dL High 70-100 [facility] Comment on above: Performed By: #### L [id number] ####[facility] [[email or web address] LAB ([facility])[address] [place] [address] Potassium [Moles/Vol] 3.9 mmol/L Normal 3.5-5.1 [facility] Comment on above: Performed By: #### L [id number] ####[facility] [[email or web address] LAB ([facility])[address] [place] [address] Sodium [Moles/Vol] 136 mmol/L Normal 136-145 [facility] Comment on above: Performed By: #### L [id number] ####[facility] [[email or web address] LAB ([facility])[address] [place] [address] Urea nitrogen [Mass/Vol] 26 mg/dL High 7-25 [facility] Comment on above: Performed By: #### L [id number] ####[facility] [[email or web address]] LAB ([facility])[address] [place] [address] UREA NITROGEN/CREATININE (MASS RATIO) IN SER/PLAS 20.0 Normal [facility] Comment on above: Performed By: #### L [id number] ####[facility] [[email or web address] LAB ([facility])[address] [place] [address] CBC WITH AUTO DIFFERENTIALon 07-08-2023 Basophils (Bld) [#/Vol] 0.04 10*3/uL Normal 0.00-0.20 [facility] Comment on above: Performed By: #### L [id number] #### [facility] [[email or web address] LAB ([facility]) [address] [place] [address] Basophils/100 WBC (Bld) 0.3 % Normal 0.0-1.0 [facility] Comment on above: Performed By: #### L [id number] #### [facility] [[email or web address] LAB ([facility]) [address] [place] [address] Eosinophils (Bld) [#/Vol] 0.51 10*3/uL High 0.00-0.50 [facility] Comment on above: Performed By: #### L [id number] #### [facility] [[email or web address] LAB ([facility]) [address] [place] [address] Eosinophils/100 WBC (Bld) 4.1 % Normal 0.0-6.0 [facility] Comment on above: Performed By: #### L [id number] #### [facility] [[email or web address] LAB ([facility]) [address] [place] [address] Erythrocyte distribution width (RBC) [Ratio] 15.0 % Normal 11.5-15.0 [facility] Comment on above: Performed By: #### L [id number] #### [facility] [[email or web address] LAB ([facility]) [address] [place] [address] ERYTHROCYTE MEAN CORPUSCULAR HEMOGLOBIN CONCENTRATION (G/DL) BY AUTOMATED 31.9 g/dL Low 32.0-35.0 [facility] Comment on above: Performed By: #### L [id number] #### [email or web address] [address] [place] [address] Hematocrit (Bld) [Volume fraction] 37.9 % Normal 36.0-48.0 [facility] Comment on above: Performed By: #### L [id number] #### [email or web address] ([facility] [address] [place] [address] Hemoglobin (Bld) [Mass/Vol] 12.1 g/dL Normal 12.0-15.0 [facility] Comment on above: Performed By: #### L [id number] #### [facility] [[email or web address] LAB ([facility]) [address] [place] [address] Immature granulocytes (Bld) [#/Vol] 0.04 10*3/uL Normal 0.00-0.20 [facility] Comment on above: Performed By: #### L [id number] #### [facility] [[email or web address] LAB ([facility]) [address] [place] [address] Immature granulocytes/100 WBC (Bld) 0.3 % Normal 0.0-1.0 [facility] Comment on above: Performed By: #### L [id number] #### [facility] [[email or web address] LAB ([facility]) [address] [place] [address] Lymphocytes (Bld) [#/Vol] 4.00 10*3/uL Normal 1.20-4.00 [facility] Comment on above: Performed By: #### L [id number] #### [facility] [[email or web address] LAB ([facility]) [address] [place] [address] Lymphocytes/100 WBC (Bld) 32.1 % Normal 20.0-45.0 [facility] Comment on above: Performed By: #### L [id number] #### [email or web address] [address] [place] [address] MCH (RBC) [Entitic mass] 28.1 pg Normal 27.0-33.0 [facility] Comment on above: Performed By: #### L [id number] #### [facility] [[email or web address] LAB ([facility]) [address] [place] [address] MCV (RBC) [Entitic vol] 87.9 fL Normal 82.0-98.0 [facility] Comment on above: Performed By: #### L [id number] #### [facility] ([facility]) [address] [place] [address] Monocytes (Bld) [#/Vol] 0.85 10*3/uL Normal 0.10-1.00 [facility] Comment on above: Performed By: #### L [id number] #### [facility] [[email or web address] LAB ([facility]) [address] [place] [address] Monocytes/100 WBC (Bld) 6.8 % Normal 5.0-12.0 [facility] Comment on above: Performed By: #### L [id number] #### [facility] [[email or web address] LAB ([facility]) [address] [place] [address] Neutrophils (Bld) [#/Vol] 7.02 10*3/uL Normal 1.60-7.60 [facility] Comment on above: Performed By: #### L [id number] #### [email or web address] [address] [place] [address] Neutrophils/100 WBC (Bld) 56.4 % Normal 40.0-72.0 [facility] Comment on above: Performed By: #### L [id number] #### [email or web address] LAB ([facility]) [address] [place] [address] NRBC (PER 100 WBCS) BY AUTOMATED COUNT 0.0 % Normal 0 [facility] Comment on above: Performed By: #### L [id number] #### [email or web address] LAB ([facility]) [address] [place] [address] PLATELETS (10*3/UL) IN BLOOD AUTOMATED COUNT 301 10*3/uL Normal 150-400 [facility] Comment on above: Performed By: #### L [id number] #### [email or web address] LAB ([facility]) [address] [place] [address] RBC (Bld) [#/Vol] 4.31 10*6/uL Normal 3.80-5.00 [facility] Comment on above: Performed By: #### L [id number] #### [facility] [[email or web address]] LAB (BEAKER) [address] [place] [address] WBC (Bld) [#/Vol] 12.46 10*3/uL High 4.00-10.60 [facility] Comment on above: Performed By: #### L [id number] #### [facility] LAB (BEAKER) [address] [place] [address] 30on 07-07-2023 30 The patient is Moderately Stable - Low risk of patient condition declining or worsening The patient's goals for the shift include comfort The clinical goals for the shift include vss Normal [facility] 30 Problem: Cardiovascular - Adult Goal: [...] comfort lev (more content not included)... Normal [facility] BASIC METABOLIC PANELon 02-2 4-2024 Anion gap [Moles/Vol] 12 mmol/L Normal 7-20 [facility] Comment on above: Performed By: #### L [id number] #### [facility] [[email or web address]] LAB ([facility]) [address] [place] [address] Calcium [Mass/Vol] 9.2 mg/dL Normal 8.6-10.3 [facility] Comment on above: Performed By: #### L [id number] #### [facility] [[email or web address] LAB ([facility]) [address] [place] [address] Chloride [Moles/Vol] 97 mmol/L Low 98-107 [facility] Comment on above: Performed By: #### L [id number] #### [facility] [[email or web address] LAB ([facility]) [address] [place] [address] CO2 [Moles/Vol] 31 mmol/L Normal 21-31 [facility] Comment on above: Performed By: #### L [id number] #### [facility] [[email or web address] LAB ([facility]) [address] [place] [address] Creatinine [Mass/Vol] 1.06 mg/dL Normal 0.60-1.20 [facility] Comment on above: Performed By: #### L [id number] #### [facility] [email or web address] ([facility]) [address] [place] [address] GLOMERULAR FILTRATION RATE ML/MIN/1.73 SQ M.PREDICTED 59.4 mL/min/1.73m*2 Low >60.0 [facility] [place] Comment on above: Result Comment: [facility]???s estimated glomerular filtration rate (eGFR) will [...] #### [email or web address] ([facility]) [address] [place] [address] Glucose [Mass/Vol] 119 mg/dL High 70-100 [facility] Comment on above: Performed By: #### L [id number] #### [email or web address] ([facility]) [address] [place] [address] Potassium [Moles/Vol] 4.6 mmol/L Normal 3.5-5.1 [facility] Comment on above: Performed By: #### L [id number] #### [email or web address] ([facility]) [address] [place] [address] Sodium [Moles/Vol] 135 mmol/L Low 136-145 [facility] Comment on above: Performed By: #### L [id number] #### [email or web address] ([facility]) [address] [place] [address] Urea nitrogen [Mass/Vol] 21 mg/dL Normal 7-25 [facility] Comment on above: Performed By: #### L [id number] #### [email or web address] ([facility]) [address] [place] [address] UREA NITROGEN/CREATININE (MASS RATIO) IN SER/PLAS 19.8 Normal [facility] Comment on above: Performed By: #### L [id number] #### [email or web address] ([facility]) [address] [place] [address] CBC WITH AUTO DIFFERENTIALon 07-07-2023 Basophils (Bld) [#/Vol] 0.05 10*3/uL Normal 0.00-0.20 [facility] Comment on above: Performed By: #### L [id number] #### [email or web address] ([facility]) [address] [place] [address] Basophils/100 WBC (Bld) 0.3 % Normal 0.0-1.0 [facility] Comment on above: Performed By: #### L [id number] #### [email or web address] ([facility]) [address] [place] [address] Eosinophils (Bld) [#/Vol] 0.38 10*3/uL Normal 0.00-0.50 [facility] Comment on above: Performed By: #### L [id number] #### [email or web address] LAB ([facility]) [address] [place] [address] Eosinophils/100 WBC (Bld) 2.5 % Normal 0.0-6.0 [facility] Comment on above: Performed By: #### L [id number] #### [email or web address] [address] [place] [address] Erythrocyte distribution width (RBC) [Ratio] 15.5 % High 11.5-15.0 [facility] Comment on above: Performed By: #### L [id number] #### [email or web address] [address] [place] [place] [address] ERYTHROCYTE MEAN CORPUSCULAR HEMOGLOBIN CONCENTRATION (G/DL) BY AUTOMATED 32.0 g/dL Normal 32.0-35.0 [facility] Comment on above: Performed By: #### L [id number] #### [email or web address] LAB ([facility]) [address] [place] [address] Hematocrit (Bld) [Volume fraction] 38.8 % Normal 36.0-48.0 [facility] Comment on above: Performed By: #### L [id number] #### [email or web address] LAB ([facility]) [address] [place] [address] Hemoglobin (Bld) [Mass/Vol] 12.4 g/dL Normal 12.0-15.0 [facility] Comment on above: Performed By: #### L [id number] #### [email or web address] LAB ([facility]) [address] [place] [address] Immature granulocytes (Bld) [#/Vol] 0.05 10*3/uL Normal 0.00-0.20 [facility] Comment on above: Performed By: #### L [id number] #### [email or web address] ([facility]) [address] [place] [address] Immature granulocytes/100 WBC (Bld) 0.3 % Normal 0.0-1.0 [facility] Comment on above: Performed By: #### L [id number] #### [email or web address] [address] [place] [address] Lymphocytes (Bld) [#/Vol] 3.99 10*3/uL Normal 1.20-4.00 [facility] Comment on above: Performed By: #### L [id number] #### [email or web address] LAB ([facility]) [address] [place] [address] Lymphocytes/100 WBC (Bld) 26.5 % Normal 20.0-45.0 [facility] Comment on above: Performed By: #### L [id number] #### [email or web address] ([facility]) [address] [place] [address] MCH (RBC) [Entitic mass] 27.9 pg Normal 27.0-33.0 [facility] Comment on above: Performed By: #### L [id number] #### [email or web address] LAB ([facility]) [address] [place] [address] MCV (RBC) [Entitic vol] 87.4 fL Normal 82.0-98.0 [facility] Comment on above: Performed By: #### L [id number] #### [email or web address] [address] [place] [address] Monocytes (Bld) [#/Vol] 1.25 10*3/uL High 0.10-1.00 [facility] Comment on above: Performed By: #### L [id number] #### [email or web address] [address] [place] [address] Monocytes/100 WBC (Bld) 8.3 % Normal 5.0-12.0 [facility] Comment on above: Performed By: #### L [id number] #### [email or web address] ([facility]) [address] [address] Neutrophils (Bld) [#/Vol] 9.31 10*3/uL High 1.60-7.60 [facility] Comment on above: Performed By: #### L [id number] #### [email or web address] ([facility]) [address] [place] [address] Neutrophils/100 WBC (Bld) 62.1 % Normal 40.0-72.0 [facility] Comment on above: Performed By: #### L [id number] #### [email or web address] LAB ([facility]) [address] [place] [place] [address] NRBC (PER 100 WBCS) BY AUTOMATED COUNT 0.0 % Normal 0 [facility] Comment on above: Performed By: #### L [id number] #### [email or web address] ([facility]) [address] [place] [address] PLATELETS (10*3/UL) IN BLOOD AUTOMATED COUNT 300 10*3/uL Normal 150-400 [facility] Comment on above: Performed By: #### L [id number] #### [email or web address] LAB ([facility]) [address] [place] [address] RBC (Bld) [#/Vol] 4.44 10*6/uL Normal 3.80-5.00 [facility] Comment on above: Performed By: #### L [id number] #### [email or web address] LAB ([facility]) [address] [place] [place] [address] WBC (Bld) [#/Vol] 15.03 10*3/uL High 4.00-10.60 [facility] Comment on above: Performed By: #### L [id number] #### [email or web address] LAB ([facility]) [address] [place] [address] MAGNESIUMon 07-07-2023 Magnesium [Mass/Vol] 2.3 mg/dL Normal 1.9-2.7 [facility] Comment on above: Performed By: #### L [id number] ####[email or web address] LAB ([facility])[address] [place] [address] 30on 07-06-2023 30 Daily Case Managemen t [...] Consultation Consultation and Management 07/06/23 1050 Normal [facility] 30 The patient is Moderately [...] and maintained or improved Outcome: Progressing Normal [facility] 30 The patient is Moderately Stable - Low risk of patient condition declining or worsening The patient's goals for the shift include comfort The clinical goals for the shift include VSS Normal [facility] 30 The patient is Moderately Stable - Low risk of patient condition declining or worsening The patient's goals for the shift include comfort The clinical goals for the shift include VSS Normal [facility] APTTon 07-06-2023 ACTIVATED PARTIAL THROMBOPLASTIN TIME IN PPP BY COAGULATION ASSAY 25.3 Seconds Normal 25.0-35.0 [facility] Comment on above: Result Comment: Clin ical significance of the APTT is questionable in the presence of heparin. Performed By: #### L [id number] #### [email or web address] LAB ([facility]) [address] [place] [address] B-TYPE NATRIURETIC PEPTIDEon 07-06-2023 Natriuretic peptide B (Bld) [Mass/Vol] 721 pg/mL High 0-100 [facility] Comment on above: Performed By: #### L [id number] #### [email or web address] ([facility]) [address] [facility] [place] [address] BLOOD CULTUREon 07-06-2023 Bacteria identified Cx Nom (Bld) No growth at 5 days Normal [facility] [place] Comment on above: Performed By: #### L [id number] ####[email or web address] LAB ([facility])[address] [place] [address] Order Comment: From a different site than #1. Performed By: #### L [id number] #### [email or web address] LAB ([facility]) [address] [place] [address] CBC WITH AUTO DIFFERENTIALon 07-06-2023 Basophils (Bld) [#/Vol] 0.03 10*3/uL Normal 0.00-0.20 [facility] Comment on above: Performed By: #### L [id number] #### [email or web address] LAB ([facility]) [address] [place] [address] Basophils/100 WBC (Bld) 0.2 % Normal 0.0-1.0 [facility] Comment on above: Performed By: #### L [id number] #### [email or web address] LAB ([facility]) [address] [facility] [place] [address] Eosinophils (Bld) [#/Vol] 0.11 10*3/uL Normal 0.00-0.50 [facility] Comment on above: Performed By: #### L [id number] #### [email or web address] LAB ([facility]) [address] [place] [address] Eosinophils/100 WBC (Bld) 0.8 % Normal 0.0-6.0 [facility] Comment on above: Performed By: #### L [id number] #### [email or web address] LAB ([facility]) [address] [place] [address] Erythrocyte distribution width (RBC) [Ratio] 15.1 % High 11.5-15.0 [facility] Comment on above: Performed By: #### L [id number] #### [email or web address] LAB ([facility]) [address] [place] [address] ERYTHROCYTE MEAN CORPUSCULAR HEMOGLOBIN CONCENTRATION (G/DL) BY AUTOMATED 32.3 g/dL Normal 32.0-35.0 [facility] Comment on above: Performed By: #### L [id number] #### [email or web address] LAB ([facility]) [address] [place] [address] Hematocrit (Bld) [Volume fraction] 39.0 % Normal 36.0-48.0 [facility] Comment on above: Performed By: #### L [id number] #### [email or web address] LAB ([facility]) [address] [place] [address] Hemoglobin (Bld) [Mass/Vol] 12.6 g/dL Normal 12.0-15.0 [facility] Comment on above: Performed By: #### L [id number] #### [email or web address] LAB ([facility]) [address] [place] [address] Immature granulocytes (Bld) [#/Vol] 0.04 10*3/uL Normal 0.00-0.20 [facility] Comment on above: Performed By: #### L [id number] #### [email or web address] LAB ([facility]) [address] [place] [address] Immature granulocytes/100 WBC (Bld) 0.3 % Normal 0.0-1.0 [facility] Comment on above: Performed By: #### L [id number] #### [email or web address] [address] [place] [address] Lymphocytes (Bld) [#/Vol] 2.75 10*3/uL Normal 1.20-4.00 [facility] Comment on above: Performed By: #### L [id number] #### [facility] ([facility]) [address] [place] [address] Lymphocytes/100 WBC (Bld) 19.1 % Low 20.0-45.0 [facility] Comment on above: Performed By: #### L [id number] #### [email or web address] LAB ([facility]) [address] [place] [address] MCH (RBC) [Entitic mass] 27.9 pg Normal 27.0-33.0 [facility] Comment on above: Performed By: #### L [id number] #### [email or web address] LAB ([facility]) [address] [place] [address] MCV (RBC) [Entitic vol] 86.5 fL Normal 82.0-98.0 [facility] Comment on above: Performed By: #### L [id number] #### [facility] ([facility]) [address] [place] [address] Monocytes (Bld) [#/Vol] 1.31 10*3/uL High 0.10-1.00 [facility] Comment on above: Performed By: #### L [id number] #### [email or web address] LAB ([facility]) [address] [place] [address] Monocytes/100 WBC (Bld) 9.1 % Normal 5.0-12.0 [facility] Comment on above: Performed By: #### L [id number] #### [facility] ([facility]) [address] [place] [address] Neutrophils (Bld) [#/Vol] 10.18 10*3/uL High 1.60-7.60 [facility] Comment on above: Performed By: #### L [id number] #### [email or web address] LAB ([facility]) [address] [place] [address] Neutrophils/100 WBC (Bld) 70.5 % Normal 40.0-72.0 [facility] Comment on above: Performed By: #### L [id number] #### [facility] ([facility]) [address] [place] [address] NRBC (PER 100 WBCS) BY AUTOMATED COUNT 0.0 % Normal 0 [facility] Comment on above: Performed By: #### L [id number] #### [email or web address] LAB ([facility]) [address] [place] [address] PLATELETS (10*3/UL) IN BLOOD AUTOMATED COUNT 321 10*3/uL Normal 150-400 [facility] Comment on above: Performed By: #### L [id number] #### [email or web address] LAB ([facility]) [address] [place] [address] RBC (Bld) [#/Vol] 4.51 10*6/uL Normal 3.80-5.00 [facility] Comment on above: Performed By: #### L [id number] #### [email or web address] LAB ([facility]) [address] [place] [address] WBC (Bld) [#/Vol] 14.42 10*3/uL High 4.00-10.60 [facility] Comment on above: Performed By: #### L [id number] #### [email or web address] LAB ([facility]) [address] [place] [address] CKon 07-06-2023 CREATINE KINASE (U/L) IN SER/PLAS 36.0 U/L Normal 30.0-223.0 [facility] Comment on above: Performed By: #### L [id number] #### [email or web address] ([facility]) [address] [place] [address] COMPREHENSIVE METABOLIC PANE Pollo 07-06-2023 Albumin [Mass/Vol] 4.6 g/dL Normal 3.5-5.7 [facility] Comment on above: Performed By: #### L [id number] #### [email or web address] [address] [place] [address] ALP [Catalytic activity/Vol] 47 U/L Normal 34-104 [facility] Comment on above: Performed By: #### L [id number] #### [email or web address] LAB ([facility]) [address] [place] [address] ALT [Catalytic activity/Vol] 13 U/L Normal 7-52 [facility] Comment on above: Performed By: #### L [id number] #### [email or web address] LAB ([facility]) [address] [place] [address] Anion gap [Moles/Vol] 14 mmol/L Normal 7-20 [facility] Comment on above: Performed By: #### L [id number] #### [email or web address] LAB ([facility]) [address] [place] [address] AST [Catalytic activity/Vol] 17 U/L Normal 13-39 [facility] Comment on above: Performed By: #### L [id number] #### [email or web address] [address] [place] [address] Bilirubin [Mass/Vol] 0.5 mg/dL Normal 0.3-1.0 [facility] Comment on above: Performed By: #### L [id number] #### [email or web address] ([facility] [address] [place] [address] Calcium [Mass/Vol] 8.9 mg/dL Normal 8.6-10.3 [facility] Comment on above: Performed By: #### L [id number] #### [email or web address] LAB ([facility]) [address] [place] [address] Chloride [Moles/Vol] 98 mmol/L Normal 98-107 [facility] Comment on above: Performed By: #### L [id number] #### [facility] ([facility]) [address] [place] [address] CO2 [Moles/Vol] 28 mmol/L Normal 21-31 [facility] Comment on above: Performed By: #### L [id number] #### [facility] ([facility]) [address] [place] [address] Creatinine [Mass/Vol] 1.23 mg/dL High 0.60-1.20 [facility] Comment on above: Performed By: #### L [id number] #### [email or web address] LAB ([facility]) [address] [place] [address] GLOMERULAR FILTRATION RATE ML/MIN/1.73 SQ M.PREDICTED 49.7 mL/min/1.73m*2 Low >60.0 [facility] Comment on above: Result Comment: [facility]???s estimated glomerular filtration rate (eGFR) will [...] #### [email or web address] LAB ([facility]) [address] [place] [address] Glucose [Mass/Vol] 119 mg/dL High 70-100 [facility] Comment on above: Performed By: #### L [id number] #### [email or web address] LAB ([facility]) [address] [place] [address] Potassium [Moles/Vol] 4.6 mmol/L Normal 3.5-5.1 [facility] Comment on above: Performed By: #### L [id number] #### [email or web address] ([facility]) [address] [place] [address] Protein [Mass/Vol] 6.8 g/dL Normal 6.0-8.3 [facility] Comment on above: Performed By: #### L [id number] #### [email or web address] LAB ([facility]) [address] [place] [address] Sodium [Moles/Vol] 135 mmol/L Low 136-145 [facility] Comment on above: Performed By: #### L [id number] #### [email or web address] LAB ([facility]) [address] [facility] [place] [address] Urea nitrogen [Mass/Vol] 23 mg/dL Normal 7-25 [facility] Comment on above: Performed By: #### L [id number] #### [email or web address] ([facility]) [address] [facility] [place] [address] UREA NITROGEN/CREATININE (MASS RATIO) IN SER/PLAS 18.7 Normal [facility] Comment on above: Performed By: #### L [id number] #### [email or web address] ([facility]) [address] [facility] [place] [address] CONSULTon 07-06-2023 CONSULT - Attestation signed by [...] of bradycardia. Patient has been transferred to [facility] for consideration of pacemaker placement. As per [...] not included)... [facility] ED Clinical Summaryon 2023 ED Clinical Summary [address] [address] ED Clinical Summary Person Information Name: VIVIAN VANN[place] Age: 63 Years : 1960 Sex: Female Language: Haitian PCP: Екатерина Robert MD Marital Status: Phone: [...] 07/05/2023 22:16:25 07/05/2023 22:16:25 07/05/2023 22:16:25 ADDRESS: [facility] [id number] PHYS DOC NOTES: MEDICAL INFORMATION: Prescriptions Given: [...] 3:Tobacco abuse; 4:CHF (congestive heart failure) Normal [facility] ED Patient Education Noteon 07-06-2023 ED Patient Education Note Normal [facility] ED Patient Summaryon 024 ED Patient Summary [address] [address] Patient Discharge Instructions Person Information Name: VIVIAN VANN Age: 63 Years Arrival Date: 07/05/2023 15:01:40 Discharge Diagnosis: 1:Atrial fibrillation with slow ventricular response; 2:Elevated troponin; 3:Tobacco abuse; 4:CHF (congestive heart failure) Primary Care Physician: Екатерина Robert MD Provider Information Primary Provider: Arsenio Martin DO Advanced Quill Layer:None The exam and treatment you received in the Emergency Department were for an urgent problem and are not intended as complete care. It is important that you follow up with a doctor, nurse practitioner, or physician?s life enrichment assistant for ongoing care. If your symptoms [...] opioids can be used to help relieve qikjmnhv-mm-teypor pain and are often prescribed following a [...] be struggling with addiction, tell your health personal care aid and ask for guidance or call [employer]?S National Helpline at 9-052-984-HELP. v Source: [place] Department of Health and Human Services/Center for Disease Control & Preve (more content not included)... Normal [facility] ETHANOLon 07-06-2023 ETHANOL (MG/DL) IN SER/PLAS <10 Normal [facility] Comment on above: Performed By: #### L [id number] ####[facility] [[email or web address]] LAB (BEAKER)[address] [place] [address] ETHANOL CALCULATED (%) Normal Un [facility] Comment on above: Performed By: #### L [id number] ####[facility] [[email or web address]] LAB (BEAKER)[address] [place] [address] HEMOGLOBIN A1Con 07-06-2023 Glucose [Mass/Vol] 148 mg/dL Normal [facility] Comment on above: Performed By: #### L [id number] #### [facility] [[email or web address]] LAB ([facility]) [address] [place] [address] HbA1c (Bld) [Mass fraction] 6.8 % High 4.0-6.0 [facility] Comment on above: Performed By: #### L [id number] #### [facility] [[email or web address] ([facility] [address] [place] [address] LACTIC ACID WITH 4 HOUR REFL EXon 07-06-2023 LACTATE (MMOL/L) IN SER/PLAS 1.8 mmol/L Normal 0.5-2.2 [facility] Comment on above: Performed By: #### L [id number] ####[facility] [[email or web address]] LAB (BEAKER)[address] [place] [address] LIPID PANELon 07-06-2023 CHOL/HDL 3.0 mg/dL Normal [facility] Comment on above: Performed By: #### L [id number] #### [facility] [[email or web address] LAB (BEAKER) [address] [place] [address] Cholesterol [Mass/Vol] 143 mg/dL Normal 120-200 Un [facility] Comment on above: Performed By: #### L [id number] #### [facility] [[email or web address] LAB (BEAKER) [address] [place] [address] Magnesium [Mass/Vol] 159 mg/dL High 40-149 [facility] Comment on above: Result Comment: TRIG LYCERIDE REFERENCE RANGE: 20 YEARS AND OLDER CARDIOVASCULAR RISK LESS THAN 150 mg/dL LOW RISK 150 TO 199 mg/dL BORDERLINE RISK 200 mg/dL AND GREATER HIGH RISK Performed By: #### L [id number] #### [facility] [[email or web address] LAB ([facility]) [address] [place] [address] Magnesium [Mass/Vol] 63 mg/dL Normal 0-160 [facility] Comment on above: Performed By: #### L [id number] #### [facility] [[email or web address] LAB ([facility]) [address] [place] [address] Magnesium [Mass/Vol] 48 mg/dL Normal 23-92 [facility] Comment on above: Performed By: #### L [id number] #### [facility] [[email or web address] LAB ([facility]) [address] [place] [address] NON HDL CHOL. (LDL+VLDL) 95 Normal [facility] Comment on above: Performed By: #### L [id number] #### [facility] [[email or web address] LAB ([facility]) [address] [place] [address] TOTAL VLDL-C 32 mg/dL Normal 0-40 [facility] [place] Comment on above: Performed By: #### L [id number] #### [email or web address] [address] [place] [address] MAGNESIUMon 07-06-2023 Magnesium [Mass/Vol] 2.2 mg/dL Normal 1.9-2.7 [facility] Comment on above: Performed By: #### L [id number] #### [facility] [[email or web address] [address] [place] [address] PHOSPHORUSon 07-06-2023 Magnesium [Mass/Vol] 5.2 mg/dL High 2.5-5.0 [facility] Comment on above: Performed By: #### L [id number] #### [facility] [[email or web address] LAB [facility] [address] [place] [address] PROTIME-INRon 07-06-2023 INR IN PPP BY COAGULATION ASSAY 1.00 Normal 0.90-1.10 [facility] Comment on above: Result Comment: ACCC [...] 1995;[id number]. Performed By: #### L [id number] #### [facility] [address] [place] [address] PROTHROMBIN TIME (PT) IN PPP BY COAGULATION ASSAY 13.2 Seconds Normal 12.3-14.8 [facility] Comment on above: Performed By: #### L [id number] #### [facility] [[email or web address] LAB [facility] [address] [place] [address] TOXICOLOGY PANEL URINEon AMPHETAMINE+METHAMPHET AMINE SCREEN (PRESENCE) IN URINE Negative Normal Negative [facility] [place] Comment on above: Performed By: #### L [id number] #### [facility] [address] [place] [address] BARBITURATES PRESENCE IN URINE BY SCREEN METHOD Negative Normal Negative [facility] Comment on above: Performed By: #### L [id number] #### [facility] [[email or web address] LAB [facility]) [address] [place] [address] Benzodiazepines Ql (U) Positive Abnormal Negative Un [facility] Comment on above: Performed By: #### L [id number] #### [facility] [[email or web address]] LAB ([facility]) [address] [place] [address] CANNABINOID (PRESENCE) IN URINE BY SCREEN METHOD Positive Abnormal Negative [facility] Comment on above: Performed By: #### L [id number] #### [facility] [[email or web address] LAB ([facility]) [address] [place] [address] Cocaine Ql (U) Negative Normal Negative [facility] Comment on above: Performed By: #### L [id number] #### [facility] [[email or web address] LAB ([facility]) [address] [facility] [place] [address] METHADONE (PRESENCE) IN URINE BY SCREEN METHOD Negative Normal Negative [facility] Comment on above: Performed By: #### L [id number] #### [facility] [[email or web address] LAB ([facility]) [address] [facility] [place] [address] OPIATES (PRESENCE) IN URINE BY SCREEN METHOD Negative Normal Negative [facility] Comment on above: Performed By: #### L [id number] #### [facility] [[email or web address] LAB ([facility]) [address] [facility] [place] [address] PHENCYCLIDINE PRESENCE IN URINE BY SCREEN METHOD Negative Normal Negative [facility] Comment on above: Performed By: #### L [id number] #### [facility] [[email or web address] LAB ([facility]) [address] [facility] [place] [address] Propoxyphene Screen Ql (U) Negative Normal Negative [facility] Comment on above: Performed By: #### L [id number] #### [facility] [[email or web address]] LAB ([facility]) [address] [place] [address] TRICYCLIC ANTIDEPRESSANTS (PRESENCE) IN URINE Positive Abnormal Negative [facility] [place] Comment on above: Performed By: #### L [id number] #### [facility] [[email or web address] LAB ([facility]) [address] [facility] [address] TROPONIN Ion 07-06-2023 Troponin I.cardiac [Mass/Vol] 0.12 ng/mL Critically high 0.00-0.04 [facility] Comment on above: Result Comment: M-NM EVIOUS CRITICAL RESULT Previous result verified on 07/06/2023 1236 on specimen/case [id number] called with component Troponin I for procedure Troponin I with value 0.11 ng/mL. Performed By: #### L [id number] #### [facility] [[email or web address]] LAB ([facility]) [address] [place] [address] Troponin I.cardiac [Mass/Vol] 0.11 ng/mL Critically high 0.00-0.04 [facility] Comment on above: Result Comment: M-NM EVIOUS CRITICAL RESULT Previous result verified on 07/06/2023 0444 on specimen/case [id number] called with component Troponin I for procedure Troponin I with value 0.12 ng/mL. Performed By: #### L [id number] #### [facility] [[email or web address]] LAB ([facility]) [address] [place] [address] Troponin I.cardiac [Mass/Vol] 0.12 ng/mL Critically high 0.00-0.04 [facility] Comment on above: Result Comment: M-CR ITICAL RESULT(S) REVIEWED, CALLED TO AND READ BACK BY PRIYANKA LEOS RN AT 0442 M-TROPONIN INITIAL CRITICAL HIGH; RESPUN AND RETESTED Performed By: #### L [id number] #### [facility] [[email or web address] LAB ([facility]) [address] [place] [address] TSH3 REFLEX TO FT4on 024 THYROTROPIN (MIU/L) IN SER/PLAS BY DETECTION LIMIT <= 0.05 MIU/L 4.25 mIU/L Normal 0.34-5.60 [facility] [place] Comment on above: Performed By: #### L [id number] #### [facility] [[email or web address] LAB ([facility]) [address] [place] [address] Transfer Documentson 024 Transfer Documents [id number]# 1.00TIFF Normal [facility] URINALYSIS WITH REFLEX CULTU REon 07-06-2023 BILIRUBIN, TOTAL PRESENCE IN URINE Negative Normal Negative [facility] Comment on above: Order Comment: Micro scopics not performed on urines with negative chemical reactions unless requested on original order. Performed By: #### L [id number] #### [facility] ([facility] [address] [place] [address] Clarity (U) Clear Normal Clear [facility] Comment on above: Order Comment: Micro scopics not performed on urines with negative chemical reactions unless requested on original order. Performed By: #### L [id number] #### [facility] [[email or web address] LAB ([facility]) [address] [place] [address] Color (U) Yellow Normal Yellow [facility] Comment on above: Order Comment: Micro scopics not performed on urines with negative chemical reactions unless requested on original order. Performed By: #### L [id number] #### [facility] [[email or web address] LAB ([facility]) [address] [place] [address] Glucose (U) [Mass/Vol] mg/dL Abnormal Negative [facility] Comment on above: Order Comment: Micro scopics not performed on urines with negative chemical reactions unless requested on original order. Performed By: #### L [id number] #### [facility] [[email or web address] LAB ([facility]) [address] [place] [address] HEMOGLOBIN PRESENCE IN URINE Negative Normal Negative [facility] Comment on above: Order Comment: Micro scopics not performed on urines with negative chemical reactions unless requested on original order. Performed By: #### L [id number] #### [facility] ([facility]) [address] [place] [address] Ketones Ql (U) Negative Normal Negative [facility] Comment on above: Order Comment: Micro scopics not performed on urines with negative chemical reactions unless requested on original order. Performed By: #### L [id number] #### [facility] [[email or web address] LAB ([facility]) [address] [place] [address] LEUKOCYTE ESTERASE PRESENCE IN URINE BY TEST STRIP Negative Normal Negative [facility] Comment on above: Order Comment: Micro scopics not performed on urines with negative chemical reactions unless requested on original order. Performed By: #### L [id number] #### [facility] ([facility]) [address] [place] [address] NITRITE PRESENCE IN URINE Negative Normal Negative [facility] Comment on above: Order Comment: Micro scopics not performed on urines with negative chemical reactions unless requested on original order. Performed By: #### L [id number] #### [facility] [[email or web address]] LAB ([facility]) [address] [place] [address] pH (U) 6.0 [pH] Normal 5.0-8.0 [facility] Comment on above: Order Comment: Micro scopics not performed on urines with negative chemical reactions unless requested on original order. Performed By: #### L [id number] #### [facility] [[email or web address] LAB ([facility]) [address] [place] [address] Protein (U) [Mass/Vol] Negative Normal Negative [facility] Comment on above: Order Comment: Micro scopics not performed on urines with negative chemical reactions unless requested on original order. Performed By: #### L [id number] #### [facility] [[email or web address] LAB ([facility]) [address] [place] [address] Specific gravity (U) [Rel density] 1.013 Low 1.015-1.020 [facility] Comment on above: Order Comment: Micro scopics not performed on urines with negative chemical reactions unless requested on original order. Performed By: #### L [id number] #### [facility] [[email or web address] LAB ([facility]) [address] [place] [address] BILIRUBIN, TOTAL PRESENCE IN URINE Negative Normal Negative [facility] Comment on above: Order Comment: Micro scopics not performed on urines with negative chemical reactions unless requested on original order. Performed By: #### L [id number] #### [facility] [[email or web address] LAB ([facility]) [address] [place] [address] Clarity (U) Clear Normal Clear [facility] Comment on above: Order Comment: Micro scopics not performed on urines with negative chemical reactions unless requested on original order. Performed By: #### L [id number] #### [facility] LAB ([facility]) [address] [place] [address] Color (U) Yellow Normal Yellow [facility] Comment on above: Order Comment: Micro scopics not performed on urines with negative chemical reactions unless requested on original order. Performed By: #### L [id number] #### [facility] [[email or web address] LAB ([facility]) [address] [place] [address] Glucose (U) [Mass/Vol] mg/dL Abnormal Negative [facility] Comment on above: Order Comment: Micro scopics not performed on urines with negative chemical reactions unless requested on original order. Performed By: #### L [id number] #### [facility] [[email or web address] LAB ([facility]) [address] [place] [address] HEMOGLOBIN PRESENCE IN URINE Negative Normal Negative [facility] Comment on above: Order Comment: Micro scopics not performed on urines with negative chemical reactions unless requested on original order. Performed By: #### L [id number] #### [facility] [[email or web address] LAB ([facility]) [address] [place] [address] Ketones Ql (U) Negative Normal Negative [facility] Comment on above: Order Comment: Micro scopics not performed on urines with negative chemical reactions unless requested on original order. Performed By: #### L [id number] #### [facility] [[email or web address] LAB ([facility]) [address] [place] [address] LEUKOCYTE ESTERASE PRESENCE IN URINE BY TEST STRIP Negative Normal Negative [facility] Comment on above: Order Comment: Micro scopics not performed on urines with negative chemical reactions unless requested on original order. Performed By: #### L [id number] #### [facility] [[email or web address]] LAB ([facility]) [address] [place] [address] NITRITE PRESENCE IN URINE Negative Normal Negative [facility] Comment on above: Order Comment: Micro scopics not performed on urines with negative chemical reactions unless requested on original order. Performed By: #### L [id number] #### [facility] [[email or web address] LAB ([facility]) [address] [place] [address] pH (U) 6.0 [pH] Normal 5.0-8.0 [facility] Comment on above: Order Comment: Micro scopics not performed on urines with negative chemical reactions unless requested on original order. Performed By: #### L [id number] #### [facility] [[email or web address] LAB ([facility]) [address] [place] [address] Protein (U) [Mass/Vol] Negative Normal Negative [facility] Comment on above: Order Comment: Micro scopics not performed on urines with negative chemical reactions unless requested on original order. Performed By: #### L [id number] #### [facility] [[email or web address] LAB ([facility]) [address] [place] [address] Specific gravity (U) [Rel density] 1.017 Normal 1.015-1.020 [facility] Comment on above: Order Comment: Micro scopics not performed on urines with negative chemical reactions unless requested on original order. Performed By: #### L [id number] #### [facility] [[email or web address] LAB ([facility]) [address] [place] [address] BMP 07-05-2023 Anion gap [Moles/Vol] 15 mmol/L Normal 6-16 [facility] Comment on above: Performed By: #### 1 [id number], 0677727, 90261173, 53528867, 3894702, 13781230, 0744887, 1714894, 8372312, 6479818 ####[facility] [address] [place] [address] BUN/Creat Ratio 15 No Units Normal 10-20 [facility] Comment on above: Performed By: #### 1 3371984, 1979257, 06435891, 16551254, 6813282, 01766388, 3733396, 6554858, 0460329, 1826605 ####[facility] [address] [place] [address] Calcium [Mass/Vol] 10.1 mg/dL Normal 8.9-11.1 [facility] Comment on above: Performed By: #### 1 9942804, 9210803, 37751622, 05161192, 5474860, 60715359, 5843423, 8311793, 7903699, 7849211 ####[facility] [address] [place] [address] Chloride [Moles/Vol] 96 mmol/L Low 101-111 [facility] Comment on above: Performed By: #### 1 7307944, 5756009, 57795602, 12988009, 0184664, 05170307, 6913988, 7810405, 5354917, 6980007 ####[facility] [address] [place] [address] CO2 [Moles/Vol] 32 mmol/L High 21-31 [facility] Comment on above: Performed By: #### 1 3037938, 4843996, 29859749, 60797403, 8616322, 76381700, 5559630, 2276333, 4086846, 9876511 ####[facility] [address] [place] [address] Creatinine [Mass/Vol] 1.5 mg/dL High 0.5-1.3 [facility] Comment on above: Performed By: #### 1 5023925, 2004195, 32541142, 88234689, 2474457, 50785736, 6481490, 1220664, 7541245, 7584708 ####[facility] [address] [place] [address] Glucose [Mass/Vol] 147 mg/dL Normal 55-199 [facility] Comment on above: Performed By: #### 1 0932172, 4433648, 77271879, 35771796, 1614190, 17852126, 0022824, 4823770, 1489136, 4419094 ####[facility] [address] [place] [address] Potassium [Moles/Vol] 5.1 mmol/L Normal 3.5-5.3 [facility] Comment on above: Performed By: #### 1 7678172, 9959420, 76996265, 56008722, 4514799, 73925834, 9303019, 0362690, 2785534, 7785527 ####[facility] [address] [place] [address] Sodium [Moles/Vol] 138 mmol/L Normal 135-145 [facility] Comment on above: Performed By: #### 1 0421496, 2573941, 64805708, 92739688, 1584054, 39099876, 8501765, 9579183, 3531230, 1301698 ####[facility] [address] [place] [address] Urea nitrogen [Mass/Vol] 22 mg/dL High 5-21 [facility] Comment on above: Performed By: #### 1 3332704, 8594310, 22143207, 73462322, 6758545, 30140276, 9715543, 8132255, 7120107, 8448377 ####[address] [address] BNPon 07-05-2023 Natriuretic peptide B (Bld) [Mass/Vol] 508 pg/mL High 5-80 [facility] Comment on above: Performed By: #### 1 0482087, 9578899, 34388002, 79642626, 0025337, 55962841, 8973710, 5924295, 4223460, 1337130 ####[address] [address] CBC w/ Auto Diffon Basophil Absolute 0.1 E9/L Normal 0.0-0.2 [facility] Comment on above: Performed By: #### 1 4526735, 2383895, 74068726, 25874406, 1758790, 04098945, 3008245, 6277600, 3199937, 8922235 ####[address] [place] [address] Basophils/100 WBC (Bld) 0.7 % Normal 0.0-2.0 [facility] Comment on above: Performed By: #### 1 6143458, 6682164, 90649133, 12485850, 8989272, 61540847, 0266793, 3451062, 9447105, 2343532 ####[address] [place] [address] Eos Absolute 0.4 E9/L Normal 0.0-0.5 [facility] Comment on above: Performed By: #### 1 2563557, 9983924, 24438372, 70125355, 9111927, 15986232, 5166902, 4685505, 6144728, 4321336 ####[place] [address] Eosinophils/100 WBC (Bld) 3.7 % Normal 0.0-8.0 [facility] Comment on above: Performed By: #### 1 1399790, 3239595, 25026122, 45002782, 8886191, 17922556, 2273361, 1126945, 0441794, 7971873 ####[place] [address] Erythrocyte distribution width (RBC) [Ratio] 16.8 % High 10.9-14.2 [facility] Comment on above: Performed By: #### 1 5490736, 5932261, 67749539, 43523661, 6042789, 36746156, 9508208, 8953824, 6462881, 9664225 ####[place] [address] Hematocrit (Bld) [Volume fraction] 46.0 % Normal 34.0-46.0 [facility] Comment on above: Performed By: #### 1 8345518, 7889177, 83728934, 89433996, 3898264, 10628424, 1979123, 4772452, 9888860, 3339379 ####[place] [address] Hemoglobin (Bld) [Mass/Vol] 15.1 g/dL Normal 12.0-16.0 [facility] Comment on above: Performed By: #### 1 2903153, 8529971, 90712316, 24506064, 7750489, 92455770, 7133511, 4471063, 6666560, 8161947 ####[address] [place] [address] Lymph Absolute 3.6 E9/L Normal 1.0-4.0 [facility] Comment on above: Performed By: #### 1 0701450, 6750379, 56259566, 28713892, 8083285, 12217442, 0108095, 2193902, 1243315, 0666893 ####[address] [address] Lymphocytes/100 WBC (Bld) 30.9 % Normal 14.0-50.0 [facility] Comment on above: Performed By: #### 1 7209001, 2864985, 85818843, 49861610, 2397791, 74211131, 6691636, 3965477, 5505879, 1682130 ####[address] [address] MCH (RBC) [Entitic mass] 27.6 pg Normal 27.0-34.0 [facility] Comment on above: Performed By: #### 1 9234459, 4551983, 11823917, 02033592, 2206541, 56609195, 5810197, 8047355, 8878212, 9355564 ####[address] [address] MCHC (RBC) [Mass/Vol] 32.8 g/dL Normal 31.4-36.0 [facility] Comment on above: Performed By: #### 1 8958696, 9647648, 59326304, 73886093, 6027949, 31050969, 5371665, 8207757, 8602658, 2536587 ####[address] [address] MCV (RBC) [Entitic vol] 84.3 fL Normal 80.0-100.0 [facility] Comment on above: Performed By: #### 1 2718487, 0815572, 23414950, 52947484, 9209971, 82369057, 4815593, 2883762, 7227973, 0344757 ####[facility] [address] [place] [address] [place] Absolute 0.9 E9/L Normal 0.2-1.0 [facility] Comment on above: Performed By: #### 1 3535782, 5930703, 17429240, 81842050, 5664361, 32536759, 3528666, 1049396, 2338162, 0391025 ####[address] [place] [address] Monocytes/100 WBC (Bld) 8.1 % Normal 4.0-14.0 [facility] Comment on above: Performed By: #### 1 6742951, 9195499, 45718980, 44841172, 2181525, 89897339, 1426846, 4261492, 9510881, 6650887 ####[address] [address] Neutro Absolute 6.6 E9/L Normal 2.0-7.5 [facility] Comment on above: Performed By: #### 1 0358406, 3819577, 02989017, 37584872, 2316672, 25397345, 2992678, 8835939, 5349743, 7099290 ####[address] [place] [address] Neutro Auto 56.6 % Normal 36.0-75.0 [facility] Comment on above: Performed By: #### 1 0168873, 0542264, 01356259, 59707878, 8658763, 36013768, 1112093, 8955661, 0636409, 4936877 ####[address] [place] [address] Platelet 431.0 E9/L Normal 150.0-500.0 [facility] Comment on above: Performed By: #### 1 5752261, 5420757, 49217367, 51129235, 7145262, 40727391, 5851739, 6067901, 1890352, 3085103 ####[facility] [address] [place] [address] Platelet mean volume (Bld) [Entitic vol] 8.5 fL Normal 6.4-10.8 [facility] Comment on above: Performed By: #### 1 6763963, 4707667, 82470317, 44405222, 4270077, 02608603, 4198250, 9158466, 5734904, [id number] ####[facility] [address] [place] [address] RBC 5.5 E12/L Normal 4.3-5.9 [facility] Comment on above: Performed By: #### 1 5248820, 6405293, 56257704, 19677976, 9352996, 92725835, 4041129, 3824074, 4480379, 8529961 ####[facility] [address] [place] [address] WBC 11.6 E9/L High 4.0-11.0 [facility] Comment on above: Performed By: #### 1 5252032, 2422938, 73875165, 25301891, 6170806, 84670349, 2267707, 0551079, 6192009, 7989939 ####[facility] [address] [place] [address] CHEMISTRYOrdered By: SYSTEM SYSTEM on 07-05-2023 Troponin 51.10 pg/mL Invalid Interpretation Code 10.10 - 27.10 pg/mL [facility] Comment on above: Result Comment: Crit ical Result I_TnIHS:51.1 Called to and read back by: DR. JUAN MAS at: 07/05/2023 21:51:38 by:[id number] Critical Result Verified by Previous Result Interpretive Data: T he 95% CI (Confidence Interval) PPV (Positive Predictive Value) for myocardial infarction in females is 38 pg/mL, in males 51 pg/mL. The results should be used in conjunction with clinical conditions of myocardial infarction. (Access High Sensitivity Troponin I Instructions For Use, [employer], December 2017) Troponin 51.70 pg/mL Invalid Interpretation [...] High Sensitivity Troponin I Instructions For Use, [employer], December 2017) Result Comment: Crit ical Result [...] back by: JOHNNA PERKINS at: 07/05/2023 16:37:35 by:[id number] Interpretive Data: T he 95% CI (Confidence [...] pg/mL [facility] COAGULATIONOrdered By: Richar Kumar on 07-05-2023 [...] Consent for Treatment 06-15 Consent for Treatment [id number]#1 .00TIFF Normal [facility] Digoxinon 07-05-2023 Digoxin Lvl <0.2 Low 0.5-1.9 [facility] Comment on above: Performed By: #### 1 [id number], 7045445, 55914563, 19598856, 4490161, 28759254, 4134034, 9694516, 3935056, 7226373 ####[facility] [address] [place] [address] ED Note-Physicianon 07-05-19 24 ED Note-Physician Basic [...] patient states she was just released from [facility] 36 hours ago. She states she [...] acute int (more content not included)... Normal [facility] Comment on above: Result Comment: [...] Normal 80.0 - 100.0 fL Remisol Heme [place] Absolute 0.9 E9/L Normal 0.2 - 1.0 [...] 07-05-2023 Albumin [Mass/Vol] 4.3 g/dL Normal 3.3-5.0 [facility] Comment on above: Performed By: #### 1 1625678, 0842037, 81318781, 94155704, 0380923, 38500922, 6925337, 0032681, 8429846, 5430123 ####[facility] [address] [place] [address] Albumin/Globulin [Mass ratio] 1.4 {ratio} Normal 1.1-2.2 [facility] Comment on above: Performed By: #### 1 2157370, 6034088, 17320150, 60029165, 8891818, 62498409, 5999796, 0251231, 0778369, 0634661 ####[facility] [address] [place] [address] Alk Phos 77 Int._Unit/L Normal 21-98 [facility] Comment on above: Performed By: #### 1 6076063, 9540302, 62850999, 93678731, 0429487, 76263600, 1788114, 9862814, 4767530, 2367736 ####[address] [place] [address] ALT 20 Int._Unit/L Normal 6-46 [facility] Comment on above: Performed By: #### 1 9806628, 3523685, 91636319, 42413879, 0061068, 04840915, 9581646, 4422865, 4996387, 5601463 ####[address] [place] [address] AST 23 Int._Unit/L Normal 5-43 [facility] Comment on above: Performed By: #### 1 0071425, 7097213, 83589263, 14066542, 0681868, 19718454, 3538918, 8831378, 5808474, 1942905 ####[facility] [address] [place] [address] Bili Direct 0.1 mg/dL Normal 0.0-0.4 [facility] Comment on above: Performed By: #### 1 5210984, 6678541, 12974784, 06094267, 6398646, 67880681, 4450048, 7539732, 3598953, 5504174 ####[facility] [address] [place] [address] Bili Indirect 0.5 mg/dL Normal 0.1-0.9 [facility] Comment on above: Performed By: #### 1 9727873, 5324500, 09748910, 07629389, 0395840, 84462014, 0809935, 0103428, 2155830, 7140863 ####[facility] [address] [place] [address] Bili Total 0.6 mg/dL Normal 0.0-1.1 [facility] Comment on above: Performed By: #### 1 2519609, 0779613, 49095141, 52345745, 5184272, 06384001, 8614091, 4904649, 7056681, 6983809 ####[facility] [address] [place] [address] Globulin (S) [Mass/Vol] 3.0 g/dL Normal 1.4-4.0 [facility] Comment on above: Performed By: #### 1 7101733, 1014818, 47004501, 39832834, 0533838, 16790566, 5105103, 4833229, 2790895, 8247202 ####[facility] [address] [place] [address] Protein [Mass/Vol] 7.3 g/dL Normal 6.0-7.8 [facility] Comment on above: Performed By: #### 1 0819394, 6231929, 87976090, 34951483, 2564161, 71082498, 5049733, 9848063, 4118687, 6387578 ####[facility] [address] [place] [address] Lipase Levelon 07-05-2023 Lipase Lvl 22 unit/L Normal 13-58 [facility] Comment on above: Performed By: #### 1 4226264, 5914818, 11269093, 08162712, 1427024, 38156539, 5343259, 5537695, 5687278, 4712246 ####[facility] [address] [place] [address] Magnesiumon 07-05-2023 Magnesium [Mass/Vol] 2.3 mg/dL Normal 1.3-2.4 [facility] Comment on above: Performed By: #### 1 3021742, 3656858, 56090353, 29636329, 3524120, 71724414, 6454924, 4661561, 9170169, 7690914 ####[facility] [address] [place] [address] Monitor Recordon 07-05-2023 Monitor Record [id number]# 1.00TIFF Normal [facility] Monitor Record [id number]# 1.00TIFF Normal [facility] Monitor Record [id number]# 1.00TIFF Normal [facility] PT & PTTon 07-05-2023 aPTT Coag (PPP) [Time] 27.2 second(s) Normal 25.1-36.5 [facility] Comment on above: Result Comment: [...] - 109.0 sec. Performed By: #### 1 0186083, 6904888, 65362673, 90048063, 2519852, 41212668, 4277655, 9971322, 3047328, 7198161 ####[facility] [address] [place] [address] INR Coag (PPP) [Relative time] 1.01 {INR} Invalid Interpretation Code [facility] Comment on above: Result Comment: INR results are specifically intended to assess patients stabilized on long-term Anticoagulation therapy suggested INR?s ?Less Intensive Anticoagulation? 2.0 ? 3.0 Conventional Range 3.0 ? 4.5 Performed By: #### 1 8504704, 8452013, 94110426, 45211101, 5439918, 81945768, 9930948, 3825000, 7906793, 3068588 ####[facility] [address] [place] [address] PT Coag (PPP) [Time] 11.2 second(s) Normal 9.4-12.5 [facility] Comment on above: Result Comment: [...] no normal ranges. Performed By: #### 1 4666980, 5105697, 41299058, 61696073, 7611015, 10853219, 1846080, 9783252, 5569755, 3371309 ####[facility] [address] [place] [address] Pre-Arrival Noteon Pre-Arrival Note Pre-Arrival Summary Name: , [facility] Current Date: 07/05/2023 15:02:00 EST Gender: Female Date of : Age: 63 Pre-Arrival Type: EMS ETA: 07/05/2023 15:21:00 EST Primary Care Physician: Presenting Problem: HR 40s, CP, SOB, dizziness, abd. pain, nausea Pre-Arrival User: Oxana Pace RN Referring Source: Location: [place] Completion Date/Time: 07/05/2023 14:51:00 [facility] Emergency Department Pre-Hospital Report Form Vital Signs: Pre-Hospital Report: Treatment in Route: Response to Treatment: Misc. Issues: Normal [facility] Troponin 0 Hr.on 07-05-2023 Troponin 49.20 pg/mL Abnormal 10.10-27.10 [facility] Comment on above: Result Comment: Steven gonzalez Result Verified by Repeat Analysis Critical Result I_TnIHS:49.2 Called to and read back by: JOHNNA PERKINS at: 07/05/2023 16:37:35 by:[id number] The 95% CI (Confidence Interval) PPV (Positive Predictive Value) for myocardial infarction in females is 38 pg/mL, in males 51 pg/mL. The results should be used in conjunction with clinical conditions of myocardial infarction. (Access High Sensitivity Troponin I Instructions For Use, [employer], December 2017) Performed By: #### 1 2617352, 5060178, 65366594, 38927029, 2321459, 75876763, 0039912, 7705213, 7168415, 7819800 ####[facility] [place] [address] Troponin 3 Hr.on 07-05-2023 Troponin 51.70 pg/mL Abnormal 10.10-27.10 [facility] Comment on above: Result Comment: The 95% CI (Confidence Interval) PPV (Positive Predictive Value) for myocardial infarction in females is 38 pg/mL, in males 51 pg/mL. The results should be used in conjunction with clinical conditions of myocardial infarction. (Access High Sensitivity Troponin I Instructions For Use, [place], December 2017) Critical Result Verified by Previous Result Results Called To Johnna Perkins (ER) By STANFORD And Read Back For Confirmation On 07/05/2023 19:18:03 EST. Performed By: #### 1 [id number] ####[facility] [address] [place] [address] Troponin 6 Hr.on 07-05-2023 Troponin 51.10 pg/mL Abnormal 10.10-27.10 [facility] Comment on above: Result Comment: Crit ica Result I_TnIHS:51.1 Called to and read back by: DR. JUAN MAS at: 07/05/2023 21:51:38 by:[id number] Critical Result Verified by Previous Result The 95% CI (Confidence Interval) PPV (Positive Predictive Value) for myocardial infarction in females is 38 pg/mL, in males 51 pg/mL. The results should be used in conjunction with clinical conditions of myocardial infarction. ([place] High Sensitivity Troponin I Instructions For Use, [place], December 2017) Performed By: #### 1 [id number] ####[facility] [address] [place] [address] XR Chest Single Viewon 07-05 XR Chest [...] mGy = na DAP = na Normal [facility] eGFRon 07-05-2023 eGFR 39 mL/min/1.73 m2 Low >=59 [facility] Comment on above: Order Comment: Order added by Discern Expert. Performed By: #### 1 8801987, 9765610, 86299307, 49545813, 4743093, 68223121, 3823619, 9618783, 0057660, 8189027 ####[facility] [address] [place] [address] 36on 07-03-2023 36 Unable to reach pt . Phone not in service [facility] 36 Pts phone number not in service. Spoke to pts friend Arvind and requested he have pt call us, he agrees. [facility] Documentationon 07-03-2023 Documentation [id number] Vivian Vann 1960 F Date Provider Department Center 07/03/2023 [facility] No family history on file Reason for Visit and Comments: HF inpatient satisfaction robyn sent. [Other] [facility] 30on 07-02-2023 30 The patient is Moderately [...] behaviors that affect risk of falls [place] fall precautions as indicated by assessment Educate [...] and prevent overall improvement and discharge Normal [facility] 30 The patient is Moderately [...] behaviors that affect risk of falls [place] fall precautions as indicated by assessment Educate [...] and prevent overall improvement and discharge Normal [facility] BASIC METABOLIC PANELon 06-14 Anion gap [Moles/Vol] 11 mmol/L Normal 7-20 [facility] Comment on above: Performed By: #### L [id number] #### [facility] [[email or web address] LAB ([facility]) [address] [place] [address] Calcium [Mass/Vol] 9.0 mg/dL Normal 8.6-10.3 [facility] Comment on above: Performed By: #### L [id number] #### [facility] [[email or web address] LAB ([facility]) [address] [place] [address] Chloride [Moles/Vol] 91 mmol/L Low 98-107 [facility] Comment on above: Performed By: #### L [id number] #### [facility] [[email or web address] LAB ([facility]) [address] [place] [address] CO2 [Moles/Vol] 37 mmol/L High 21-31 [facility] Comment on above: Performed By: #### L [id number] #### [facility] [[email or web address] LAB ([facility]) [address] [place] [address] Creatinine [Mass/Vol] 0.89 mg/dL Normal 0.60-1.20 [facility] Comment on above: Performed By: #### L [id number] #### [facility] [[email or web address] LAB ([facility]) [address] [place] [address] GLOMERULAR FILTRATION RATE ML/MIN/1.73 SQ M.PREDICTED 73.3 mL/min/1.73m*2 Normal >60.0 [facility] Comment on above: Result Comment: [facility]???s estimated glomerular filtration rate (eGFR) will [...] individuals. Performed By: #### L [id number] #### [facility] [[email or web address] LAB ([facility]) [address] [place] [address] Glucose [Mass/Vol] 123 mg/dL High 70-100 [facility] Comment on above: Performed By: #### L [id number] #### [facility] [[email or web address] LAB ([facility]) [address] [place] [address] Potassium [Moles/Vol] 3.7 mmol/L Normal 3.5-5.1 [facility] Comment on above: Performed By: #### L [id number] #### [facility] [[email or web address] LAB ([facility]) [address] [place] [address] Sodium [Moles/Vol] 135 mmol/L Low 136-145 [facility] Comment on above: Performed By: #### L [id number] #### [email or web address] [address] [place] [address] Urea nitrogen [Mass/Vol] 29 mg/dL High 7-25 [facility] Comment on above: Performed By: #### L [id number] #### [facility] [[email or web address] [address] [place] [address] UREA NITROGEN/CREATININE (MASS RATIO) IN SER/PLAS 32.6 Normal [facility] Comment on above: Performed By: #### L [id number] #### [facility] [[email or web address] LAB ([facility]) [address] [place] [address] CBCon 07-02-2023 Erythrocyte distribution width (RBC) [Ratio] 15.8 % High 11.5-15.0 [facility] Comment on above: Performed By: #### L [id number] ####[facility] [[email or web address]] LAB (BE[facility]ER)[address] [place] [address] ERYTHROCYTE MEAN CORPUSCULAR HEMOGLOBIN CONCENTRATION (G/DL) BY AUTOMATED 31.8 g/dL Low 32.0-35.0 [facility] Comment on above: Performed By: #### L [id number] ####[facility] [[email or web address] [place] [address] Hematocrit (Bld) [Volume fraction] 44.0 % Normal 36.0-48.0 [facility] Comment on above: Performed By: #### L [id number] ####[facility] [[email or web address] ([facility] [place] [address] Hemoglobin (Bld) [Mass/Vol] 14.0 g/dL Normal 12.0-15.0 [facility] Comment on above: Performed By: #### L [id number] ####[facility] [[email or web address] ([facility] [place] [address] MCH (RBC) [Entitic mass] 27.9 pg Normal 27.0-33.0 [facility] Comment on above: Performed By: #### L [id number] ####[facility] [[email or web address]] LAB (BEAKER)[address] [place] [address] MCV (RBC) [Entitic vol] 87.8 fL Normal 82.0-98.0 [facility] Comment on above: Performed By: #### L [id number] ####[facility] [[email or web address]] LAB (BEAKER)[address] [place] [address] PLATELETS (10*3/UL) IN BLOOD AUTOMATED COUNT 285 10*3/uL Normal 150-400 [facility] Comment on above: Performed By: #### L [id number] ####[facility] [[email or web address]] LAB (BE[facility]ER)[address] [place] [address] RBC (Bld) [#/Vol] 5.01 10*6/uL High 3.80-5.00 [facility] Comment on above: Performed By: #### L [id number] ####[facility] [[email or web address] LAB ([facility])[address] [place] [address] WBC (Bld) [#/Vol] 8.89 10*3/uL Normal 4.00-10.60 [facility] Comment on above: Performed By: #### L [id number] ####[facility] [[email or web address] LAB ([facility])[address] [place] [address] DSon 07-02-2023 DS Admit Date 06/29/2023 Discharge Date 07/02/2023 Discharge Diagnosis NSTEMI Acute on chronic HFpEF NYHA class 2 CAD DMII noninsulin dependent Chronic pain Anxiety GERD Tobacco abuse Discharge Disposition Home-Health Care [facility] () Discharge Medications Your medication list START [...] Medications These medications were sent to [facility] - [place], [place] - [address] [facility] [place] [address] [address] [facility] [place] [address], [facility] [address] furosemide 40 mg tablet spironolactone 25 mg tablet Activity Normal activity as tolerated Diet Continue on the same type of diet and foods as you were eating before your admission. Drink plenty of water. Allergies Hay fever and allergy relief and House dust Hospital Course History of Present Illness Vivian Vann is an 63 y.o. female who came from [facility] as direct asmission for NSTEMI. Patient presented 06/28/23 to [facility] for c/o chest pain and lower back pain. Patient troponin level found to be 557 and EKG showed new ischemia and inverted T-waves, NSTEMI. She was given nitroglycerin and started on heparin drip. Patient is 1 year s/p stent placement at [facility] on plavix and aspirin. Dr. Chapa with cardiology agreed to patient transfer here to [facility] with hospital medicine admitting and cardiology consult [...] Low back pending. Laboratory workup here at [facility] shows CBC unremarkable w/ exception of NCHC [...] General: Abdo (more content not included)... Normal [facility] POCT GLUCOSE METER UNSOLICIT ED RESULTSon 07-02-2023 Glucose [Mass/Vol] 117 mg/dL High 70-105 [facility] Comment on above: Order Comment: Waive d Testing in the ED is performed under the ED CLIA certificate #[id number]. Result Comment: [email or web address] Performed By: #### L [id number] #### [facility] [[email or web address]] LAB (BE[facility]ER) [address] [place] [address] Glucose [Mass/Vol] 110 mg/dL High 70-105 [facility] Comment on above: Order Comment: Waive d Testing in the ED is performed under the ED CLIA certificate #[id number]. Result Comment: [email or web address] Performed By: #### L [id number] ####[facility] [[email or web address]] LAB (BEAKER)[address] [place] [address] 30on 07-01-2023 30 The patient is Moderately [...] behaviors that affect risk of falls [place] fall precautions as indicated by assessment Educate [...] and prevent overall improvement and discharge Normal [facility] BASIC METABOLIC PANELon 06-14 Anion gap [Moles/Vol] 10 mmol/L Normal 7-20 [facility] Comment on above: Performed By: #### L [id number] ####[facility] (BE[facility]ER)[address] [place] [address] Calcium [Mass/Vol] 8.3 mg/dL Low 8.6-10.3 [facility] Comment on above: Performed By: #### L [id number] ####[facility] [[email or web address] LAB ([facility])[address] [place] [address] Chloride [Moles/Vol] 98 mmol/L Normal 98-107 [facility] Comment on above: Performed By: #### L AB15 ####[facility] [[email or web address] LAB ([facility])[address] [place] [address] CO2 [Moles/Vol] 35 mmol/L High 21-31 [facility] Comment on above: Performed By: #### L AB15 ####[facility] [[email or web address] LAB ([facility])[address] [place] [address] Creatinine [Mass/Vol] 1.08 mg/dL Normal 0.60-1.20 [facility] Comment on above: Performed By: #### L AB15 ####[facility] [[email or web address] LAB ([facility])[address] [place] [address] GLOMERULAR FILTRATION RATE ML/MIN/1.73 SQ M.PREDICTED 58.1 mL/min/1.73m*2 Low >60.0 [facility] Comment on above: Result Comment: [facility]???s estimated glomerular filtration rate (eGFR) will [...] AB15 ####[facility] [[email or web address] LAB ([facility])[address] [place] [address] Glucose [Mass/Vol] 116 mg/dL High 70-100 [facility] Comment on above: Performed By: #### L AB15 ####[facility] [[email or web address] [place] [address] Potassium [Moles/Vol] 3.7 mmol/L Normal 3.5-5.1 [facility] Comment on above: Performed By: #### L [id number] ####[facility] [[email or web address] LAB ([facility])[address] [place] [address] Sodium [Moles/Vol] 139 mmol/L Normal 136-145 [facility] Comment on above: Performed By: #### L AB15 ####[facility] [[email or web address] LAB ([facility])[address] [place] [address] Urea nitrogen [Mass/Vol] 27 mg/dL High 7-25 [facility] Comment on above: Performed By: #### L AB15 ####[facility] [[email or web address] LAB ([facility])[address] [place] [address] UREA NITROGEN/CREATININE (MASS RATIO) IN SER/PLAS 25.0 Normal [facility] Comment on above: Performed By: #### L [id number] ####[facility] [[email or web address] LAB ([facility])[address] [place] [address] POCT GLUCOSE METER UNSOLICIT ED RESULTSon 07-01-2023 Glucose [Mass/Vol] 132 mg/dL High 70-105 [facility] Comment on above: Order Comment: Waive d Testing in the ED is performed under the ED CLIA certificate #[id number]. Result Comment: [email or web address] weir Performed By: #### L [id number] ####[facility] [[email or web address] LAB ([facility])[address] [place] [address] Glucose [Mass/Vol] 106 mg/dL High 70-105 [facility] Comment on above: Order Comment: Waive d Testing in the ED is performed under the ED CLIA certificate #[id number]. Result Comment: mick rad Performed By: #### L [id number] #### [facility] [[email or web address] LAB ([facility]) [address] [place] [address] Glucose [Mass/Vol] 121 mg/dL High 70-105 [facility] Comment on above: Order Comment: Waive d Testing in the ED is performed under the ED CLIA certificate #[id number]. Result Comment: wwar rad Performed By: #### L [id number] ####[facility] [[email or web address] LAB ([facility])[address] [place] [address] Glucose [Mass/Vol] 105 mg/dL Normal 70-105 [facility] Comment on above: Order Comment: Waive d Testing in the ED is performed under the ED CLIA certificate #[id number]. Result Comment: wwar rad Performed By: #### L [id number] ####[facility] [[email or web address] LAB ([facility])[address] [place] [address] 30on 06-30-2023 30 The patient is Moderately [...] and maintained or improved Outcome: Progressing Normal [facility] ANTI-XA (HEPARIN LEVEL)on HEPARIN UNFRACTIONATED (U/ML) IN PPP BY CHROMOGENIC METHOD <0.10 Invalid Interpretation Code 0.3-0.7 [facility] Comment on above: Order Comment: Check anti-Xa level every 6 hours while on heparin infusion, or per protocol. Result Comment: [place] roxaban and Apixaban will interfere with the anti Xa assay used to monitor UFH and LMWH. Performed By: #### L [id number] #### [facility] [[email or web address] LAB ([facility]) [address] [place] [address] CBCon 06-30-2023 Erythrocyte distribution width (RBC) [Ratio] 15.3 % High 11.5-15.0 [facility] Comment on above: Performed By: #### L [id number] ####[facility] [[email or web address] LAB (BEAKER)[address] [place] [address] ERYTHROCYTE MEAN CORPUSCULAR HEMOGLOBIN CONCENTRATION (G/DL) BY AUTOMATED 32.2 g/dL Normal 32.0-35.0 [facility] Comment on above: Performed By: #### L [id number] ####[facility] [[email or web address] LAB (BEAKER)[address] [place] [address] Hematocrit (Bld) [Volume fraction] 35.7 % Low 36.0-48.0 [facility] Comment on above: Performed By: #### L [id number] ####[facility] [[email or web address] LAB (BEAKER)[address] [place] [address] Hemoglobin (Bld) [Mass/Vol] 11.5 g/dL Low 12.0-15.0 [facility] Comment on above: Performed By: #### L [id number] ####[facility] [[email or web address] LAB (BEAKER)[address] [place] [address] MCH (RBC) [Entitic mass] 28.1 pg Normal 27.0-33.0 [facility] Comment on above: Performed By: #### L [id number] ####[facility] [[email or web address] LAB (BEAKER)[address] [place] [address] MCV (RBC) [Entitic vol] 87.3 fL Normal 82.0-98.0 [facility] Comment on above: Performed By: #### L [id number] ####[facility] [[email or web address] LAB (BEAKER)[address] [place] [address] PLATELETS (10*3/UL) IN BLOOD AUTOMATED COUNT 219 10*3/uL Normal 150-400 [facility] Comment on above: Performed By: #### L [id number] ####[facility] [[email or web address] LAB (BEAKER)[address] [place] [address] RBC (Bld) [#/Vol] 4.09 10*6/uL Normal 3.80-5.00 [facility] Comment on above: Performed By: #### L [id number] ####[facility] [[email or web address]] LAB (BEAKER)[address] [place] [address] WBC (Bld) [#/Vol] 10.22 10*3/uL Normal 4.00-10.60 [facility] Comment on above: Performed By: #### L [id number] ####[facility] [[email or web address]] LAB (ANDRIY)[address] [place] [address] CONSULTon 06-30-2023 CONSULT Clinical Nutrition Assessment Name: [...] with questions and contact the dietitian via [employer] Mobile chat 8A-4P Sunday-Sunday. Or call the dietitian's office at extension [phone]. For weekends/holidays, the dietitian's can be reached by paging [phone] from 9A-3P. Unable to be reached via [employer] chat on Sunday & .) Normal [facility] HEMOGLOBIN A1Con 06-30-2023 Glucose [Mass/Vol] 143 mg/dL Normal [facility] Comment on above: Performed By: #### L [id number] #### [facility] [[email or web address] LAB ([facility]) [address] [place] [address] HbA1c (Bld) [Mass fraction] 6.6 % High 4.0-6.0 [facility] Comment on above: Performed By: #### L [id number] #### [facility] [[email or web address] LAB ([facility]) [address] [place] [address] LACTIC ACID WITH 4 HOUR REFL EXon 06-30-2023 LACTATE (MMOL/L) IN SER/PLAS 1.9 mmol/L Normal 0.5-2.2 [facility] Comment on above: Performed By: #### L [id number] #### [facility] [[email or web address] LAB ([facility]) [address] [place] [address] POCT GLUCOSE METER UNSOLICIT ED RESULTSon 06-30-2023 Glucose [Mass/Vol] 156 mg/dL High 70-105 [facility] Comment on above: Order Comment: Waive d Testing in the ED is performed under the ED CLIA certificate #[id number]. Result Comment: [email or web address] Performed By: #### L [id number] #### [facility] [[email or web address]] LAB ([employer]) [address] [place] [address] Glucose [Mass/Vol] 149 mg/dL High 70-105 [facility] Comment on above: Order Comment: Waive d Testing in the ED is performed under the ED CLIA certificate #[id number]. Result Comment: [email or web address] [email or web address] Performed By: #### L [id number] #### [facility] [[email or web address]] LAB ([employer]) [address] [place] [address] Glucose [Mass/Vol] 181 mg/dL High 70-105 [facility] Comment on above: Order Comment: Waive d Testing in the ED is performed under the ED CLIA certificate #[id number]. Result Comment: [email or web address] [email or web address] Performed By: #### L [id number] #### [facility] [[email or web address] LAB ([facility]) [address] [place] [address] 30on 06-29-2023 30 The patient is Moderately [...] and maintained or improved Outcome: Progressing Normal [facility] 30 The patient is Moderately Stable - Low risk of patient condition declining or worsening The patient's goals for the shift include no chest pain The clinical goals for the shift include vss Over the shift, the patient did not make progress toward the following goals. Barriers to progression include . Recommendations to address these barriers include . Normal [facility] APTTon 06-29-2023 ACTIVATED PARTIAL THROMBOPLASTIN TIME IN PPP BY COAGULATION ASSAY 67.3 Seconds High 25.0-35.0 [facility] Comment on above: Result Comment: Clin ical significance of the APTT is questionable in the presence of heparin. Performed By: #### L [id number] #### [facility] [[email or web address]] LAB ([facility]) [address] [place] [address] B-TYPE NATRIURETIC PEPTIDEon 06-29-2023 Natriuretic peptide B (Bld) [Mass/Vol] 1683 pg/mL High 0-100 [facility] Comment on above: Performed By: #### L [id number] #### [facility] [[email or web address] LAB ([facility]) [address] [place] [address] BASIC METABOLIC PANELon 06-14 Anion gap [Moles/Vol] 14 mmol/L Normal 7-20 [facility] Comment on above: Performed By: #### L [id number] #### [facility] [[email or web address]] LAB (BEAKER) [address] [place] [address] Calcium [Mass/Vol] 8.2 mg/dL Low 8.6-10.3 [facility] Comment on above: Performed By: #### L [id number] #### [email or web address] [address] [place] [address] Chloride [Moles/Vol] 102 mmol/L Normal 98-107 [facility] Comment on above: Performed By: #### L [id number] #### [facility] [[email or web address]] LAB (BEAKER) [address] [place] [address] CO2 [Moles/Vol] 25 mmol/L Normal 21-31 [facility] Comment on above: Performed By: #### L [id number] #### [email or web address] [address] [place] [address] Creatinine [Mass/Vol] 1.04 mg/dL Normal 0.60-1.20 [facility] Comment on above: Performed By: #### L [id number] #### [facility] [[email or web address] LAB ([facility]) [address] [place] [address] GLOMERULAR FILTRATION RATE ML/MIN/1.73 SQ M.PREDICTED 60.8 mL/min/1.73m*2 Normal >60.0 [facility] [place] Comment on above: Result Comment: [facility]???s estimated glomerular filtration rate (eGFR) will [...] #### [facility] [[email or web address] LAB [facility] [address] [place] [address] Glucose [Mass/Vol] 268 mg/dL High 70-100 [facility] Comment on above: Performed By: #### L [id number] #### [facility] [[email or web address] LAB ([facility]) [address] [place] [address] Potassium [Moles/Vol] 4.1 mmol/L Normal 3.5-5.1 [facility] Comment on above: Performed By: #### L [id number] #### [facility] [[email or web address] LAB ([facility]) [address] [place] [address] Sodium [Moles/Vol] 137 mmol/L Normal 136-145 [facility] Comment on above: Performed By: #### L [id number] #### [facility] [[email or web address] LAB ([facility]) [address] [place] [address] Urea nitrogen [Mass/Vol] 14 mg/dL Normal 7-25 [facility] Comment on above: Performed By: #### L [id number] #### [facility] [[email or web address] LAB ([facility]) [address] [place] [address] UREA NITROGEN/CREATININE (MASS RATIO) IN SER/PLAS 13.5 Normal [facility] Comment on above: Performed By: #### L [id number] #### [facility] [[email or web address] LAB ([facility]) [address] [place] [address] CBCon 06-29-2023 Erythrocyte distribution width (RBC) [Ratio] 15.3 % High 11.5-15.0 [facility] Comment on above: Performed By: #### L [id number] #### [facility] [[email or web address] LAB ([facility]) [address] [place] [address] ERYTHROCYTE MEAN CORPUSCULAR HEMOGLOBIN CONCENTRATION (G/DL) BY AUTOMATED 31.8 g/dL Low 32.0-35.0 [facility] Comment on above: Performed By: #### L [id number] #### [facility] [[email or web address] LAB ([facility]) [address] [place] [address] Hematocrit (Bld) [Volume fraction] 39.3 % Normal 36.0-48.0 [facility] Comment on above: Performed By: #### L [id number] #### [facility] [[email or web address] LAB ([facility]) [address] [place] [address] Hemoglobin (Bld) [Mass/Vol] 12.5 g/dL Normal 12.0-15.0 [facility] Comment on above: Performed By: #### L [id number] #### [facility] [[email or web address] LAB ([facility]) [address] [place] [address] MCH (RBC) [Entitic mass] 28.4 pg Normal 27.0-33.0 [facility] Comment on above: Performed By: #### L [id number] #### [facility] [[email or web address] LAB ([facility]) [address] [place] [address] MCV (RBC) [Entitic vol] 89.3 fL Normal 82.0-98.0 [facility] Comment on above: Performed By: #### L [id number] #### [facility] [[email or web address] LAB ([facility]) [address] [place] [address] PLATELETS (10*3/UL) IN BLOOD AUTOMATED COUNT 218 10*3/uL Normal 150-400 [facility] Comment on above: Performed By: #### L [id number] #### [facility] [[email or web address] LAB ([facility]) [address] [place] [address] RBC (Bld) [#/Vol] 4.40 10*6/uL Normal 3.80-5.00 [facility] Comment on above: Performed By: #### L [id number] #### [facility] [[email or web address] LAB ([facility]) [address] [place] [address] WBC (Bld) [#/Vol] 9.91 10*3/uL Normal 4.00-10.60 [facility] Comment on above: Performed By: #### L [id number] #### [facility] [[email or web address] LAB ([facility]) [address] [place] [address] COMPREHENSIVE METABOLIC PANE Pollo 06-29-2023 Albumin [Mass/Vol] 3.8 g/dL Normal 3.5-5.7 [facility] Comment on above: Performed By: #### L [id number] #### [facility] [[email or web address] LAB ([facility] [address] [place] [address] ALP [Catalytic activity/Vol] 77 U/L Normal 34-104 [facility] Comment on above: Performed By: #### L [id number] #### [facility] [[email or web address] LAB ([facility]) [address] [place] [address] ALT [Catalytic activity/Vol] 23 U/L Normal 7-52 [facility] Comment on above: Performed By: #### L [id number] #### [facility] [[email or web address] LAB ([facility]) [address] [place] [address] Anion gap [Moles/Vol] 10 mmol/L Normal 7-20 [facility] Comment on above: Performed By: #### L [id number] #### [facility] [[email or web address] LAB ([facility]) [address] [place] [address] AST [Catalytic activity/Vol] 23 U/L Normal 13-39 [facility] Comment on above: Performed By: #### L [id number] #### [facility] [[email or web address] LAB ([facility]) [address] [place] [address] Bilirubin [Mass/Vol] 0.4 mg/dL Normal 0.3-1.0 [facility] Comment on above: Performed By: #### L [id number] #### [email or web address] ([facility] [address] [place] [address] Calcium [Mass/Vol] 8.6 mg/dL Normal 8.6-10.3 [facility] Comment on above: Performed By: #### L [id number] #### [email or web address] LAB ([facility] [address] [place] [address] Chloride [Moles/Vol] 107 mmol/L Normal 98-107 [facility] Comment on above: Performed By: #### L [id number] #### [email or web address] LAB ([facility] [address] [place] [address] CO2 [Moles/Vol] 27 mmol/L Normal 21-31 [facility] Comment on above: Performed By: #### L [id number] #### [facility] [[email or web address] LAB ([facility]) [address] [place] [address] Creatinine [Mass/Vol] 1.01 mg/dL Normal 0.60-1.20 [facility] Comment on above: Performed By: #### L [id number] #### [facility] [[email or web address] LAB ([facility]) [address] [place] [address] GLOMERULAR FILTRATION RATE ML/MIN/1.73 SQ M.PREDICTED 62.9 mL/min/1.73m*2 Normal >60.0 [facility] [place] Comment on above: Result Comment: [facility]???s estimated glomerular filtration rate (eGFR) will [...] individuals. Performed By: #### L [id number] #### [facility] [[email or web address] LAB ([facility]) [address] [place] [address] Glucose [Mass/Vol] 148 mg/dL High 70-100 [facility] Comment on above: Performed By: #### L [id number] #### [email or web address] ([facility] [address] [place] [address] Potassium [Moles/Vol] 4.2 mmol/L Normal 3.5-5.1 [facility] Comment on above: Performed By: #### L [id number] #### [facility] [[email or web address] LAB ([facility]) [address] [place] [address] Protein [Mass/Vol] 6.3 g/dL Normal 6.0-8.3 [facility] Comment on above: Performed By: #### L [id number] #### [facility] [[email or web address] LAB ([facility]) [address] [place] [address] Sodium [Moles/Vol] 140 mmol/L Normal 136-145 [facility] Comment on above: Performed By: #### L [id number] #### [email or web address] LAB ([facility]) [address] [place] [address] Urea nitrogen [Mass/Vol] 10 mg/dL Normal 7-25 [facility] Comment on above: Performed By: #### L [id number] #### [facility] [[email or web address] LAB ([facility]) [address] [place] [address] UREA NITROGEN/CREATININE (MASS RATIO) IN SER/PLAS 9.9 Normal [facility] Comment on above: Performed By: #### L [id number] #### [facility] [[email or web address] LAB ([facility]) [address] [place] [address] CONSULTon 06-29-2023 CONSULT - Attestation signed by [...] tobacco use comes as a transfer from [facility] due to suspected NSTEMI. Patient [...] Her troponins were elevated at 557 at [facility] and recheck here shows 0.07. [...] Interval 150 (more content not included)... Normal [facility] HPon 06-29-2023 HP Interval Pre-Procedural H&P Reason for Consult: NSTEMI HPI: Vivian Vann is a 63 y.o. female with PMH of CAD s/p PCI to LAD (October 2021), HTN, HLD, COPD, tobacco use comes as a transfer from [facility] due to suspected NSTEMI. Patient [...] Her troponins were elevated at 557 at [facility] and recheck here shows 0.07. [...] QT Interval 476 QTC CALCULATION(BAZETT) 479 P Wat[place] 68 R-Wataga 25 T Wave Wataga 128 Impression Normal sinus rhythm Right atrial [...] deformity. End (more content not included)... Normal [facility] LACTIC ACID WITH 4 HOUR REFL EXon 06-29-2023 LACTATE (MMOL/L) IN SER/PLAS 3.6 mmol/L Critically high 0.5-2.2 [facility] Comment on above: Result Comment: M-NM EVIOUS CRITICAL RESULT Previous result verified on 06/29/2023 1809 on specimen/case [id number] called with component Lactate blood venous for procedure Lactic acid with 4 hour reflex with value 2.7 mmol/L. Performed By: #### L [id number] #### [facility] [[email or web address]] LAB (BEAKER) [address] [place] [address] LACTATE (MMOL/L) IN SER/PLAS 2.7 mmol/L Critically high 0.5-2.2 [facility] Comment on above: Performed By: #### L [id number] #### [facility] [[email or web address]] LAB (BEAKER) [address] [place] [address] LACTATE (MMOL/L) IN SER/PLAS 2.5 mmol/L High 0.5-2.2 [facility] Comment on above: Performed By: #### L [id number] ####[facility] [[email or web address]] LAB (BEAKER)[address] [place] [address] MAGNESIUMon 02-16-2024 Magnesium [Mass/Vol] 2.1 mg/dL Normal 1.9-2.7 [facility] Comment on above: Performed By: #### L [id number] ####[facility] [[email or web address] LAB ([facility])[address] [place] [address] Magnesium [Mass/Vol] 2.2 mg/dL Normal 1.9-2.7 [facility] Comment on above: Performed By: #### L [id number] #### [facility] [[email or web address] LAB ([facility]) [address] [facility] [place] [address] Magnesium [Mass/Vol] 1.7 mg/dL Low 1.9-2.7 [facility] Comment on above: Performed By: #### L [id number] #### [email or web address] LAB ([facility]) [address] [facility] [place] [address] NURSNOTEon 06-29-2023 NURSNOTE Notified [place] [facility] Hospitalist critical lactate 2.7 no orders received said she would recheck lactate in 4 hrs Normal [facility] PHOSPHORUSon 06-29-2023 Magnesium [Mass/Vol] 3.5 mg/dL Normal 2.5-5.0 [facility] Comment on above: Performed By: #### L [id number] #### [facility] [[email or web address] LAB ([facility]) [address] [facility] [place] [address] PROTIME-INRon 06-29-2023 INR IN PPP BY COAGULATION ASSAY 0.98 Normal 0.90-1.10 [facility] Comment on above: Result Comment: ACCC [...] CHEST 1995;[id number]. Performed By: #### L [id number] ####[facility] [[email or web address] LAB ([facility])[address] [place] [address] PROTHROMBIN TIME (PT) IN PPP BY COAGULATION ASSAY 13.0 Seconds Normal 12.3-14.8 [facility] Comment on above: Performed By: #### L [id number] ####[facility] [[email or web address] LAB ([facility])[address] [place] [address] TROPONIN Ion 06-29-2023 Troponin I.cardiac [Mass/Vol] 0.06 ng/mL High 0.00-0.04 [facility] Comment on above: Performed By: #### L [id number] #### [facility] [[email or web address] LAB ([facility]) [address] [place] [address] Troponin I.cardiac [Mass/Vol] 0.07 ng/mL High 0.00-0.04 [facility] Comment on above: Performed By: #### L [id number] ####[facility] [[email or web address] LAB ([facility])[address] [place] [address] Troponin I.cardiac [Mass/Vol] 0.07 ng/mL High 0.00-0.04 [facility] Comment on above: Performed By: #### L [id number] #### [facility] [[email or web address] LAB ([facility]) [address] [place] [address] CBC W MANUAL DIFFon 08-25-19 23 ANISOCYTOSIS 1+ Normal [facility] Comment on above: Performed By: ###Daniela PONCE ####[facility] [address] [place], [place] [address]Pq. Nahed Yañez ATYPICAL LYMPH # Normal [facility] Comment on above: Performed By: ###Daniela PONCE ####[facility] [address] [place] [id number]. Nahed Yañez ATYPICAL LYMPH % Normal [facility] Comment on above: Performed By: #### C BCMAN ####[facility] [address] [place] [address]Dr. Yilan Yañez BAND # 0.2 103/ul Normal 0.0-0.3 [facility] Comment on above: Performed By: #### C BCMAN ####[facility] [address] [place] [address]Dr. Yilan Yañez BAND % 1 % Normal 0-5 [facility] Comment on above: Performed By: #### C BCISAIAH ####[facility] [address] [place], [place] [address]Dr. Nahed Yañez BASOM # 0.00 103/ul Normal 0.00-0.10 [facility] Comment on above: Performed By: #### C ROSARIO ####[facility] [address] [place], [place] [address]Dr. Nahed Yañez BASOM % 0.0 % Critically low 0.2-2.0 [facility] Comment on above: Performed By: #### C ROSARIO ####[facility] [address] [place], [place] [address]Dr. Nahed Yañez BLAST # Normal [facility] Comment on above: Performed By: #### C ROASRIO ####[facility] [address] [place], [place] [address]Dr. Nahed Yañez BLAST % Normal [facility] Comment on above: Performed By: #### C BCISAIAH ####[facility] [address] [place] [address]Dr. Nahed Yañez CORRECTED WBC Normal 4.0-11.[address] [facility] Comment on above: Performed By: #### C ROSARIO ####[facility] [address] [place], [place] [address]Dr. Nahed Yañez EOS # 0.00 103/ul Normal 0.00-0.70 [facility] Comment on above: Performed By: #### C BCISAIAH ####[facility] [address] [place], [place] [address]Ec. Nahed Yañez EOS% 0.0 % Critically low 0.9-7.0 [facility] Comment on above: Performed By: #### C ROSARIO ####[facility] [address] [place] [id number]. Nahed Yañez HCT 33.9 % Critically low 36.0-48.0 [facility] Comment on above: Performed By: #### C ROSARIO ####[facility] Vsftthf[address] [place], [place] [address]Gm. Nahed Yañez HGB 10.8 g/dl Critically low 12.0-16.0 [facility] Comment on above: Performed By: #### C ROSARIO ####[facility] Mmlafrwmvn3135 [place] [phone]. Nahed Yañez HYPOCHROMASIA SLIGHT Normal [facility] Comment on above: Performed By: #### C ROSRAIO ####[facility] Pfjxkdjonr5311 [place] [phone]. Nahed Yañez LYMPHM # 2.59 103/ul Normal 1.20-3.80 [facility] Comment on above: Performed By: #### Isabell PONCE ####[facility] Ubkgmvckdt4736 [place] [phone]. Nahed Yañez LYMPHM% 16.0 % Critically low 20.5-60.0 [facility] Comment on above: Performed By: #### Isabell PONCE ####[facility] Elmqrwzwyb6673 [place] [phone]. Nahed Yañez MCH 28.5 pg Normal 26.7-34.0 [facility] Comment on above: Performed By: #### C ROSARIO ####[facility] Unzjvdkqsu9075 [place] [phone]. Nahed Yañez MCHC 31.9 g/dl Normal 29.9-35.2 [facility] Comment on above: Performed By: #### C ROSARIO ####[facility] Wyhxceuxzj7488 [place] [phone]. Nahed Yañez MCV 89.4 fL Normal 81.0-99.0 [facility] Comment on above: Performed By: #### C ROSARIO ####[facility] Ghhhvhocvl9637 [place] [phone]. Nahed Yañez METAMYELOCYTE # Normal [facility] Comment on above: Performed By: #### C ROSARIO ####[facility] Ggbnhgixnb2302 [place] [phone]. Nahed Yañez METAMYELOCYTE % Normal [facility] Comment on above: Performed By: #### C ROSARIO ####[facility] Xmzbmqkxpo5914 [place] [phone]. Nahed Yañez MONOM# 1.30 103/ul Critically high 0.30-0.80 [facility] Comment on above: Performed By: #### C ROSARIO ####[facility] Wvhbkksfek2067 [place] [phone]. Nahed Yañez MONOM% 8.0 % Normal 1.7-12.0 [facility] Comment on above: Performed By: #### C ROSARIO ####[facility] Jkyxgpgthq4014 [place] [phone]. Nahed Otilio MPV 9.8 fL Normal 9.5-13.5 [facility] Comment on above: Performed By: #### Isabell PONCE ####[facility] Pvqhrkoqiq5361 [place] [phone]. Nahed Yañez MYELOCYTE # Normal [facility] Comment on above: Performed By: #### Isabell PONCE ####[facility] Unyhtvpcud0879 [place] [phone]. Nahed Yañez MYELOCYTE % Normal [facility] Comment on above: Performed By: #### Isabell PONCE ####[facility] Wpuviippkq[address] [place], [place] [address]Dr. Nahed Yañez NRBC Normal [facility] Comment on above: Performed By: #### Isabell PONCE ####[facility] Gczagmvmoc0276 [place] [phone]. Rosemarieashley Otilio PLT 302 103/ul Normal 150-450 [facility] Comment on above: Performed By: #### C ROSARIO ####[facility] Nfanbimutk3099 [place], [place] [address]Mo. Nahed Yañez RBC 3.79 106/ul Critically low 4.20-5.40 [facility] Comment on above: Performed By: #### C ROSARIO ####[facility] Boiiacboaq8074 [place], [place] [address]Yc. Nahed Yañez RDW 15.3 % Critically high 11.0-15.0 [facility] Comment on above: Performed By: #### C ROSARIO ####[facility] Jucwcifqgj4452 [place], [place] [address]Wv. Nahed Yañez SEG # 12.15 103/ul Critically high 1.40-6.50 [facility] Comment on above: Performed By: #### C ROSARIO ####[facility] Ouozxakbcj1239 [place], [place] [address]Zj. Nahed Yañez SEG % 75.0 % Normal 43.0-75.0 [facility] Comment on above: Performed By: #### C ROSARIO ####[facility] Vpcmluskgg8297 [place], [place] [address]Zi. Nahed Otilio WBC 16.2 103/ul Critically high 4.0-11.0 [facility] Comment on above: Performed By: #### C ROSARIO ####[facility] Vegkdbpgar0699 [place], [place] [address]QiShaun Yañez POINT OF CARE GLUCOSEon 08-12 Glucose [Mass/Vol] 221 mg/dL Critically high 74-106 [facility] Comment on above: Performed By: #### P OCGLUC ####[facility] Kiybcfdreu8213 [place], [place] [address]CuShaun Yañez PROF 14(COMP METB)on 023 Albumin [Mass/Vol] 2.2 g/dL Critically low 3.4-5.0 [facility] Comment on above: Performed By: #### C JUDY MULLER ####[facility] Wnifenbhnx7183 [place] [phone] Yañez Albumin/Globulin [Mass ratio] 0.6 {ratio} Normal [facility] Comment on above: Performed By: #### C RENZO, JUDY ####[facility] Wmilitvrun59[address] [place], [place] [address]Dr. Nahed Yañez ALP [Catalytic activity/Vol] 87 U/L Normal 46-116 [facility] Comment on above: Performed By: #### C RENZO, JUDY ####[facility] Tenbpqtggq4[address] [place], [place] [address]Dr. Nahed Yañez ALT [Catalytic activity/Vol] 17 U/L Normal 14-59 [facility] Comment on above: Performed By: #### C RENZO, JUDY ####[facility] Xkeavwarmd65[address] [place], [place] [address]Dr. Nahed Yañez Anion gap [Moles/Vol] 9.4 mmol/L Normal [facility] Comment on above: Performed By: #### C RENZO, JUDY ####[facility] Ykwqxwohcv354[address] [place], [place] [address]Dr. Nahed Yañez AST [Catalytic activity/Vol] 13 U/L Critically low 15-37 [facility] Comment on above: Performed By: #### C RENZO, JUDY ####[facility] Twxwescgjf8526[address] [place], [place] [address]Dr. Nahed Yañez Bilirubin [Mass/Vol] 0.2 mg/dL Normal 0.2-1.0 [facility] Comment on above: Performed By: #### C RENZO, JUDY ####[facility] Etyhqxfear35[address] [place], [place] [address]Dr. Nahed Otilio Calcium [Mass/Vol] 9.1 mg/dL Normal 8.5-10.1 [facility] Comment on above: Performed By: #### C RENZO, JUDY ####[facility] Exqeqatfqx29[address] [place], [place] [address]Dr. Nahed Otilio Chloride [Moles/Vol] 103 mmol/L Normal 98-107 [facility] Comment on above: Performed By: #### C RENZO, JUDY ####[facility] Ycxhyhenda25[address] [place], [place] [address]Dr. Nahed Yañez CO2 [Moles/Vol] 29.1 mmol/L Normal 21.0-32.0 [facility] Comment on above: Performed By: #### C RENZO, JUDY ####[facility] Vyssiqliyj1137 [place] [address]Dr. Nahed Yañez Creatinine [Mass/Vol] 1.05 mg/dL Critically high 0.55-1.02 [facility] Comment on above: Performed By: #### C RENZO, JUDY ####[facility] Sbzaltcafb5591 [place] [address]Dr. Nahed Yañez EGFR-AF GREEK >60 Normal >=60 [facility] Comment on above: Performed By: #### C RENZO, JUDY ####[facility] Dksubwdcwt4542 [place] [address]Dr. Nahed Yañez EGFR-NON AF GREEK 53 mL/min/1.73m2 Critically low >=60 [facility] Comment on above: Performed By: #### C RENZO, JUDY ####[facility] Esagjqourv[address] [place], [place] [address]Dr. Nahed Yañez Globulin (S) [Mass/Vol] 3.5 g/dL Normal [facility] Comment on above: Performed By: #### C RENZO, JUDY ####[facility] Srqoitkqmc4567 [place] [address]Dr. Nahed Yañez Glucose [Mass/Vol] 121 mg/dL Critically high 74-[address] [facility] Comment on above: Performed By: #### C RENZO, JUDY ####[facility] Cexhyqgiow9721 [place] [address]Dr. Nahed Yañez Potassium [Moles/Vol] 4.5 mmol/L Normal 3.5-5.1 [facility] Comment on above: Performed By: #### C RENZO, JUDY ####[facility] Aknnxtpwwx4909 [place] [address]Dr. Nahed Yañez Protein [Mass/Vol] 5.7 g/dL Critically low 6.4-8.2 [facility] Comment on above: Performed By: #### C RENZO, JUDY ####[facility] Amlgpxopao8368 [place] [address]Dr. Nahed Yañez Sodium [Moles/Vol] 137 mmol/L Normal 136-145 [facility] Comment on above: Performed By: #### C RENZO, JUDY ####[facility] Oyvzahnfly4829 [place] [address]Dr. Nahed Yañez Urea nitrogen [Mass/Vol] 24.0 mg/dL Critically high 7.0-18.0 [facility] Comment on above: Performed By: #### C RENZO, JUDY ####[facility] Buccvxjomg[address] [place], [place] [address]Dr. Nahed Yañez Urea nitrogen/Creatinine [Mass ratio] 22.9 mg/mg Normal [facility] Comment on above: Performed By: #### C RENZO, JUDY ####[facility] Jpcstllpva70[address] [place], [place] [address]Dr. Nahed Yañez THEOPHYLLINEon 08-24-2022 THEOPHYLLINE 18.2 ug/mL Normal 10.0-20.0 [facility] Comment on above: Performed By: #### C RENZO, JUDY ####[facility] Viuynffotr[address] [place], [place] [address]Dr. Nahde Yañez CBC W MANUAL DIFFon 08-24-19 23 ATYPICAL LYMPH # 0.20 103/ul Normal [facility] Comment on above: Performed By: #### C ROSARIO ####[facility] Omzrnmhaiu34[address] [place], [place] [address]Dr. Nahed Otilio ATYPICAL LYMPH % 1 % Normal [facility] Comment on above: Performed By: #### C ROSARIO ####[facility] Uqpsiopotk[address] [place], [place] [address]Dr. Nahed Yañez BAND # 0.0 103/ul Normal 0.0-0.3 [facility] Comment on above: Performed By: #### C ROSARIO ####[facility] Iimztglbgu[address] [place], [place] [address]Dr. Nahed Yañez BAND % 0 % Normal 0-5 [facility] Comment on above: Performed By: #### C ROSARIO ####[facility] Hendzntfrp6401 [place] [phone]. Nahed Yañez BASOM # 0.00 103/ul Normal 0.00-0.10 [facility] Comment on above: Performed By: #### C BCMAN ####[facility] Mjzjttkbnw5878 [place] [phone]. Nahed Yañez BASOM % 0.0 % Critically low 0.2-2.0 [facility] Comment on above: Performed By: #### C BCMAN ####[facility] Flhyulrdav1859 [place] [phone]. Nahed Yañez BLAST # Normal [facility] Comment on above: Performed By: #### C BCISAIAH ####[facility] Gomjognnlx8496 [place] [address]Dr. Nahed Yañez BLAST % Normal [facility] Comment on above: Performed By: #### C BCISAIAH ####[facility] Nvspgiqovs[address] [place], [place] [address]Dr. Nahed Yañez CORRECTED WBC Normal 4.0-11.[address] [facility] Comment on above: Performed By: #### C BCISAIAH ####[facility] Gsiiudgqzw5655 [place] [address]Dr. Nahed Yañez EOS # 0.00 103/ul Normal 0.00-0.70 [facility] Comment on above: Performed By: #### C BCISAIAH ####[facility] Wbvuqhbhwa8117 [place] [address]Dr. Nahed Yañez EOS% 0.0 % Critically low 0.9-7.0 [facility] Comment on above: Performed By: #### C BCMAN ####[facility] Plverjtqvg6404 [place] [phone]. Nahed Yañez HCT 33.5 % Critically low 36.0-48.0 [facility] Comment on above: Performed By: #### C BCMAN ####[facility] Esrdihwqpf9432 [place] [phone]. Nahed Yañez HGB 10.7 g/dl Critically low 12.0-16.0 [facility] Comment on above: Performed By: #### C ROSARIO ####[facility] Wcldvwrhzk5240 [place] [phone]. Nahed Yañez LYMPHM # 1.39 103/ul Normal 1.20-3.80 [facility] Comment on above: Performed By: #### C ROSARIO ####[facility] Vfrnwdpejl2343 [place] [phone]. Nahed Yañez LYMPHM% 7.0 % Critically low 20.5-60.0 [facility] Comment on above: Performed By: #### C ROSARIO ####[facility] Atbvirhaqj1160 [place] [address]Dr. Nahed Yañez MCH 28.5 pg Normal 26.7-34.0 [facility] Comment on above: Performed By: #### C ROSARIO ####[facility] Diipayshbk8269 [place] [address]Dr. Nahed Yañez MCHC 31.9 g/dl Normal 29.9-35.2 [facility] Comment on above: Performed By: #### C ROSARIO ####[facility] Rpklduhegp2477 [place] [address]Dr. Nahed Yañez MCV 89.1 fL Normal 81.0-99.0 [facility] Comment on above: Performed By: #### C ROSARIO ####[facility] Xqsawsjwuz2121 [place] [address]Dr. Nahed Yañez METAMYELOCYTE # Normal [facility] Comment on above: Performed By: #### C ROSARIO ####[facility] Eskiyxhvzy8798 [place] [phone]. Nahed Yañez METAMYELOCYTE % Normal [facility] Comment on above: Performed By: #### C ROSARIO ####[facility] Obkyqeexoe7260 [place] [address]Dr. Nahed Yañez MONOM# 0.40 103/ul Normal 0.30-0.80 [facility] Comment on above: Performed By: #### C ROSARIO ####[facility] Mywxrqarpz9858 [place] [phone]. Nahed Yañez MONOM% 2.0 % Normal 1.7-12.0 [facility] Comment on above: Performed By: #### C ROSARIO ####[facility] Jaghmhsitq3137 [place] [phone]. Nahed Yañez MPV 10.0 fL Normal 9.5-13.5 [facility] Comment on above: Performed By: #### C ROSARIO ####[facility] Rzuxzcgqsg1977 [place] [phone]. Nahed Yañez MYELOCYTE # Normal [facility] Comment on above: Performed By: #### C ROSARIO ####[facility] Esenaxfurk0697 [place] [phone]. Nahed Yañez MYELOCYTE % Normal [facility] Comment on above: Performed By: #### C ROSARIO ####[facility] Vympyasckv9293 [place] [address]Dr. Nahed Yañez NRBC Normal [facility] Comment on above: Performed By: #### C ROSARIO ####[facility] Xfvkfgfkef0920 [place] [phone]. Nahed Yañez PLT 338 103/ul Normal 150-450 [facility] Comment on above: Performed By: #### C ROSARIO ####[facility] Gpmprfzmys8039 [place] [phone]. Naehd Yañez RBC 3.76 106/ul Critically low 4.20-5.40 [facility] Comment on above: Performed By: #### C ROSARIO ####[facility] Xoyhfdzckc7808 [place] [phone]. Nahed Yañez RDW 15.3 % Critically high 11.0-15.0 [facility] Comment on above: Performed By: #### C ROSARIO ####[facility] Hpijouylfz8161 [place] [phone]. Nahed Yañez SEG # 17.91 103/ul Critically high 1.40-6.50 [facility] Comment on above: Performed By: #### C ROSARIO ####[facility] Dbirvjsloe2913 [place] [phone]. Nahed Yañez SEG % 90.0 % Critically high 43.0-75.0 [facility] Comment on above: Performed By: #### C BCMAN ####[facility] Jfmxsjpgen4242 [place] [phone]. Nahed Yañez WBC 19.9 103/ul Critically high 4.0-11.0 [facility] Comment on above: Performed By: #### C BCMAN ####[facility] Vugosxuavy9063 [place] [address]Dr. Nahed Otilio POINT OF CARE GLUCOSEon 08-12 Glucose [Mass/Vol] 200 mg/dL Critically high 74-106 [facility] Comment on above: Performed By: #### P OCGLUC ####[facility] Dtfkkvvhwn8035 [place] [address]Dr. Nahed Yañez Glucose [Mass/Vol] 131 mg/dL Critically high 74-106 [facility] Comment on above: Performed By: #### P OCGLUC ####[facility] Vcajukynal1968 [place] [address]Dr. Nahed Yañez Glucose [Mass/Vol] 176 mg/dL Critically high 74-106 [facility] Comment on above: Performed By: #### P OCGLUC ####[facility] Tzdsxsgcha3801 [place] [address]Dr. Rosemarieashley Yañez PROF 14(COMP METB)on 023 Albumin [Mass/Vol] 2.2 g/dL Critically low 3.4-5.0 [facility] Comment on above: Performed By: #### T RAFITA CMP ####[facility] Nibobqanno2950 [place] [address]Dr. Nahed Otilio Albumin/Globulin [Mass ratio] 0.6 {ratio} Normal [facility] Comment on above: Performed By: #### Nydia ELLER, CMP ####[facility] Esmkafubmq6897 [place] [address]Dr. Nahed Otilio ALP [Catalytic activity/Vol] 101 U/L Normal 46-116 [facility] Comment on above: Performed By: #### Nydia ELLER CMP ####[facility] Erlsyuxovp3450 [place] [phone]. Nahed Yañez ALT [Catalytic activity/Vol] 19 U/L Normal 14-59 [facility] Comment on above: Performed By: #### Nydia ELLER, CMP ####[facility] Lrxxuxujau5120 [place] [address]Dr. Nahed Yañez Anion gap [Moles/Vol] 12.0 mmol/L Normal [facility] Comment on above: Performed By: #### Nydia ELLER CMP ####[facility] Hwolrudxqu8605 [place] [address]Dr. Nahed Yañez AST [Catalytic activity/Vol] 14 U/L Critically low 15-37 [facility] Comment on above: Performed By: #### Nydia ELLER CMP ####[facility] Jpcedbxvuw7[address] [place], [place] [address]Dr. Nahed Yañez Bilirubin [Mass/Vol] 0.2 mg/dL Normal 0.2-1.0 [facility] Comment on above: Performed By: #### Nydia ELLER CMP ####[facility] Weccflfxbs[address] [place], [place] [address]Dr. Nahed Otilio Calcium [Mass/Vol] 9.5 mg/dL Normal 8.5-10.1 [facility] Comment on above: Performed By: #### Nydia ELLER, CMP ####[facility] Dmvgpsackh94[address] [place], [place] [address]Dr. Nahed Yañez Chloride [Moles/Vol] 105 mmol/L Normal 98-107 [facility] Comment on above: Performed By: #### Nydia ELLER CMP ####[facility] Ksbuycaqwf[address] [place], [place] [address]Dr. Nahed Yañez CO2 [Moles/Vol] 27.9 mmol/L Normal 21.0-32.0 [facility] Comment on above: Performed By: #### Nydia ELLER, CMP ####[facility] Pxiuiwawrq[address]24[address] [place], [place] [address]Dr. Nahed Yañez Creatinine [Mass/Vol] 1.08 mg/dL Critically high 0.55-1.02 [facility] Comment on above: Performed By: #### Nydia ELLER, CMP ####[facility] Lcubvxbqfy9534 [place] [address]Dr. Rosemarieashley Otilio EGFR-AF GREEK >60 Normal >=60 [facility] Comment on above: Performed By: #### Nydia ELLER CMP ####[facility] Eiqfhursbx3506 [place] [address]Dr. Nahed Yañez EGFR-NON AF GREEK 52 mL/min/1.73m2 Critically low >=60 [facility] Comment on above: Performed By: #### Nydia ELLER CMP ####[facility] Rfcudxfszg94[address] [place], [place] [address]Dr. Nahed Yañez Globulin (S) [Mass/Vol] 3.7 g/dL Normal [facility] Comment on above: Performed By: #### Nydia ELLER CMP ####[facility] Srppksqsxn7327[address] [place], [place] [address]Dr. Nahed Yañez Glucose [Mass/Vol] 182 mg/dL Critically high 74-106 [facility] Comment on above: Performed By: #### Nydia ELLER CMP ####[facility] Nydaeuqqsa48[address] [place], [place] [address]Dr. Nahed Yañez Potassium [Moles/Vol] 3.9 mmol/L Normal 3.5-5.1 [facility] Comment on above: Performed By: #### Nydia ELLER CMP ####[facility] Qnstzoavvk3902[address] [place], [place] [address]Dr. Nahed Yañez Protein [Mass/Vol] 5.9 g/dL Critically low 6.4-8.2 [facility] Comment on above: Performed By: #### Nydia ELLER CMP ####[facility] Lvzrsyaabq7[address] [place], [place] [address]Dr. Nahed Yañez Sodium [Moles/Vol] 141 mmol/L Normal 136-145 [facility] Comment on above: Performed By: #### Nydia ELLER CMP ####[facility] Kelpkdxpzr8649[address] [place], [place] [address]Dr. Nahed Yañez Urea nitrogen [Mass/Vol] 20.0 mg/dL Critically high 7.0-18.0 [facility] Comment on above: Performed By: #### Nydia ELLER, CMP ####[facility] Meuwnaxbuu326[address] [place], [place] [address]Dr. Nahed Yañez Urea nitrogen/Creatinine [Mass ratio] 18.5 mg/mg Normal [facility] Comment on above: Performed By: #### Nydia ELLER, CMP ####[facility] Rxzlfkxhsr[address] [place], [place] [address]Dr. Nahed Yañez THEOPHYLLINEon 08-23-2022 THEOPHYLLINE 22.9 ug/mL Critically high 10.0-20.0 [facility] Comment on above: Performed By: #### Nydia ELLER CMP ####[facility] Ahphyoxvdx8[address] [place], [place] [address]Dr. Nahed Yañez CBC AUTO DIFFon 08-22-2022 BASO # 0.0 103/ul Normal 0.0-0.1 [facility] Comment on above: Performed By: #### C BC ####[facility] Wsrrwuzdiv14[address] [place], [place] [address]Dr. Nahed Yañez Basophils/100 WBC (Bld) 0.1 % Critically low 0.2-2.0 [facility] Comment on above: Performed By: #### C BC ####[facility] Gpimywkqra40[address] [place], [place] [address]Dr. Nahed Yañez EO # 0.0 103/ul Normal 0.0-0.7 [facility] Comment on above: Performed By: #### C BC ####[facility] Gnkogjuppg[address] [place], [place] [address]Dr. Nahed Yañez Eosinophils/100 WBC (Bld) 0.0 % Critically low 0.9-7.0 [facility] Comment on above: Performed By: #### C BC ####[facility] Cqozstguai[address] [place], [place] [address]Dr. Nahed Yañez Erythrocyte distribution width (RBC) [Ratio] 15.1 % Critically high 11.0-15.0 [facility] Comment on above: Performed By: #### C BC ####[facility] Sydgyqffhw0522 [place] [address]Dr. Nahed Yañez Hematocrit (Bld) [Volume fraction] 31.4 % Critically low 36.0-48.0 [facility] Comment on above: Performed By: #### C BC ####[facility] Uhlqhzctcs4254 [place] [address]Dr. Nahed Yañez Hemoglobin (Bld) [Mass/Vol] 10.2 g/dL Critically low 12.0-16.0 [facility] Comment on above: Performed By: #### C BC ####[facility] Rvfxpljnqs[address] [place], [place] [address]Dr. Nahed Yañez IG # 0.08 10e3/ul Critically high 0.00-0.03 [facility] Comment on above: Performed By: #### C BC ####[facility] Fjrxcpwtno60[address] [place], [place] [address]DrShaun Yañez IG % 0.6 % Critically high 0.0-0.5 [facility] Comment on above: Performed By: #### C BC ####[facility] Mqkpawsigr[address] [place], [place] [address]DrShaun Nahed Otilio LYMPH # 0.9 103/ul Critically low 1.2-3.8 [facility] Comment on above: Performed By: #### C BC ####[facility] Vqedmonaij9375 [place] [address]DrShaun Nahed Otilio Lymphocytes/100 WBC (Bld) 6.1 % Critically low 20.5-60.0 [facility] Comment on above: Performed By: #### C BC ####[facility] Dxywbazbre1304 [place] [address]DrShaun Rosemarieashley Yañez MANUAL DIFF REQ NO Normal [facility] Comment on above: Performed By: #### C BC ####[facility] Wzqlvoqddk[address] [place], [place] [address]DrShaun Rosemarieashley Yañez MCH (RBC) [Entitic mass] 28.3 pg Normal 26.7-34.0 [facility] Comment on above: Performed By: #### C BC ####[facility] Jwibtwqbbb0878 [place] [id number]. Nahed Otilio MCHC (RBC) [Mass/Vol] 32.5 g/dL Normal 29.9-35.2 [facility] Comment on above: Performed By: #### C BC ####[facility] Rnmckktizq4329 [place] [phone]. Nahed Yañez MCV (RBC) [Entitic vol] 87.0 fL Normal 81.0-99.0 [facility] Comment on above: Performed By: #### C BC ####[facility] Wbnrqvcyrk[address] [place], [place] [address]Dr. Nahed Yañez MONO # 0.7 103/ul Normal 0.3-0.8 [facility] Comment on above: Performed By: #### C BC ####[facility] Mquhkekxwh[address] [place], [place] [address]Dr. Nahed Yañez Monocytes/100 WBC (Bld) 5.1 % Normal 1.7-12.0 [facility] Comment on above: Performed By: #### C BC ####[facility] Ylqsigozyo[address] [place], [place] [id number]. Nahed Yañez NEUT # 12.2 103/ul Critically high 1.4-6.5 [facility] Comment on above: Performed By: #### C BC ####[facility] Nomtdkiiyu67[address] [place], [place] [id number]. Nahed Yañez Neutrophils/100 WBC (Bld) 88.1 % Critically high 43.0-75.0 [facility] Comment on above: Performed By: #### C BC ####[facility] Yetfjerxdd[address] [place], [place] [id number] Yañez Platelet mean volume (Bld) [Entitic vol] 10.2 fL Normal 9.5-13.5 [facility] Comment on above: Performed By: #### C BC ####[facility] Kntxpycmvm32[address] [place], [place] [id number]. Nahed Yañez PLT 271 103/ul Normal 150-450 [facility] Comment on above: Performed By: #### C BC ####[facility] Vmiuoeshmw2666 [place] [address]Dr. Nahed Yañez RBC 3.61 106/ul Critically low 4.20-5.40 [facility] Comment on above: Performed By: #### C BC ####[facility] Dmviociepr0254 [place] [address]Dr. Nahed Otilio WBC 13.9 103/ul Critically high 4.0-11.0 [facility] Comment on above: Performed By: #### C BC ####[facility] Jhgrfuzxon9952 [place] [phone]. Nahed Otilio CULTURE URINEon 08-22-2022 CULTURE URINE Culture Observations : LIGHT GROWTH OF MIXED GENITAL MIGUEL. NO POTENTIAL PATHOGENS SEEN. Normal [facility] Comment on above: Performed By: #### U RCX ####[facility] Nhqfpecdve6793 [place] [address]DrShaun Yañez POINT OF CARE GLUCOSEon 08-12 Glucose [Mass/Vol] 252 mg/dL Critically high 74-106 [facility] Comment on above: Performed By: #### P OCGLUC ####[facility] Acroyfkvee2184 [place] [address]Dr. Nahed Yañez Glucose [Mass/Vol] 293 mg/dL Critically high 74-106 [facility] Comment on above: Performed By: #### P OCGLUC ####[facility] Yemxyyzuqu7691 [place] [address]Dr. Nahed Yañez Glucose [Mass/Vol] 292 mg/dL Critically high 74-106 [facility] Comment on above: Performed By: #### P OCGLUC ####[facility] Qminpnfqzj9836 [place] [address]Dr. Nahed Yañez PROF 14(COMP METB)on 023 Albumin [Mass/Vol] 2.1 g/dL Critically low 3.4-5.0 [facility] Comment on above: Performed By: #### C MP ####[facility] Jgrodstgbl20[address] [place], [place] [address]Dr. Nahed Otilio Albumin/Globulin [Mass ratio] 0.5 {ratio} Normal [facility] Comment on above: Performed By: #### C MP ####[facility] Zhrypxeppo3255 [place] [address]Dr. Nahed Otilio ALP [Catalytic activity/Vol] 92 U/L Normal 46-116 [facility] Comment on above: Performed By: #### C MP ####[facility] Fnjrsvgvaf0905 [place] [address]Dr. Nahed Otilio ALT [Catalytic activity/Vol] 19 U/L Normal 14-59 [facility] Comment on above: Performed By: #### C MP ####[facility] Fnnctsvnql5[address] [place], [place] [address]Dr. Nahed Yañez Anion gap [Moles/Vol] 15.9 mmol/L Normal [facility] Comment on above: Performed By: #### C MP ####[facility] Umcjfddxjp45[address] [place], [place] [address]Dr. Rosemarieashley Otilio AST [Catalytic activity/Vol] 8 U/L Critically low 15-37 [facility] Comment on above: Performed By: #### C MP ####[facility] Wwismaueuy024[address] [place], [place] [address]Dr. Nahed Yañez Bilirubin [Mass/Vol] 0.3 mg/dL Normal 0.2-1.0 [facility] Comment on above: Performed By: #### C MP ####[facility] Fwvmjqijzi5965[address] [place], [place] [address]Dr. Nahed Yañez Calcium [Mass/Vol] 9.4 mg/dL Normal 8.5-10.1 [facility] Comment on above: Performed By: #### C MP ####[facility] Pmsphxvbgz6[address] [place], [place] [address]Dr. Nahed Yañez Chloride [Moles/Vol] 101 mmol/L Normal 98-107 [facility] Comment on above: Performed By: #### C MP ####[facility] Wcgrgwblff9599[address] [place], [place] [address]Dr. Nahed Yañez CO2 [Moles/Vol] 22.5 mmol/L Normal 21.0-32.0 [facility] Comment on above: Performed By: #### C MP ####[facility] Ehtzymyebh8142 [place] [address]Dr. Nahed Yañez Creatinine [Mass/Vol] 1.16 mg/dL Critically high 0.55-1.02 [facility] Comment on above: Performed By: #### C MP ####[facility] Pugzyilhoi5266 [place] [address]Dr. Nahed Yañez EGFR-AF GREEK 58 mL/min/1.73m2 Critically low >=60 [facility] Comment on above: Performed By: #### C MP ####[facility] Mwucaunhsj35[address] [place], [place] [address]Dr. Nahed Yañez EGFR-NON AF GREEK 47 mL/min/1.73m2 Critically low >=60 [facility] Comment on above: Performed By: #### C MP ####[facility] Vzjdyoxhlb[address] [place], [place] [address]Dr. Nahed Yañez Globulin (S) [Mass/Vol] 4.2 g/dL Normal [facility] Comment on above: Performed By: #### C MP ####[facility] Tuhtienrlw7650[address] [place], [place] [address]Dr. Nahed Yañez Glucose [Mass/Vol] 409 mg/dL Critically high 74-[address] [facility] Comment on above: Performed By: #### C MP ####[facility] Ecrukkcfix[address] [place], [place] [address]Dr. Nahed Yañez Potassium [Moles/Vol] 3.4 mmol/L Critically low 3.5-5.1 [facility] Comment on above: Performed By: #### C MP ####[facility] Holrqbotfb5347[address] [place], [place] [address]Dr. Nahed Yañez Protein [Mass/Vol] 6.3 g/dL Critically low 6.4-8.2 [facility] Comment on above: Performed By: #### C MP ####[facility] Bejdpnrpnl9822[address] [place], [place] [address]DrShaun Yañez Sodium [Moles/Vol] 136 mmol/L Normal 136-145 [facility] Comment on above: Performed By: #### C MP ####[facility] Seljnouvrl1505[address] [place], [place] [address]Dr. Nahed Yañez Urea nitrogen [Mass/Vol] 16.0 mg/dL Normal 7.0-18.0 [facility] Comment on above: Performed By: #### C MP ####[facility] Kjnhbcpkyp9[address] [place], [place] [address]Dr. Nahed Yañez Urea nitrogen/Creatinine [Mass ratio] 13.8 mg/mg Normal [facility] Comment on above: Performed By: #### C MP ####[facility] Qzorxukzkb0765[address] [place], [place] [address]Dr. Nahed Yañez THEOPHYLLINEon 08-22-2022 THEOPHYLLINE 13.4 ug/mL Normal 10.0-20.0 [facility] Comment on above: Performed By: #### T RAFITA ####[facility] Cusmacwvqw[address] [place], [place] [address]Dr. Nahed Yañez UA RANDOM W/MICROSCOPICon BACTERIA NONE SEEN Normal NONE SEEN [facility] Comment on above: Performed By: #### U AMIC ####[facility] Mmwqthlbrt[address] [place], [place] [address]Dr. Nahed Yañez Bilirubin Ql (U) Negative Normal NEGATIVE [facility] Comment on above: Performed By: #### U AMIC ####[facility] Xvggeyzllo9508[address] [place], [place] [address]Dr. Nahed Yañez CAST NONE SEEN Normal NONE SEEN [facility] Comment on above: Performed By: #### U AMIC ####[facility] Vfwqwcbzsk54[address] [place], [place] [address]Dr. Nahed Yañez Clarity (U) CLEAR Normal CLEAR [facility] Comment on above: Performed By: #### U AMIC ####[facility] Ozbyrcjifd6024[address] [place], [place] [address]Dr. Nahed Yañez Color (U) LT. YELLOW Normal YELLOW [facility] Comment on above: Performed By: #### U AMIC ####[facility] Wanrnoucsk6833 [place] [address]Dr. Nahed Yañez Crystals LM Nom (Urine sed) NONE SEEN Normal NONE SEEN [facility] Comment on above: Performed By: #### U AMIC ####[facility] Wlvreyvgbw3619 [place] [address]Dr. Nahed Yañez Epithelial cells LM Ql (Urine sed) RARE Normal NONE SEEN /RARE [facility] Comment on above: Performed By: #### U AMIC ####[facility] Prosjltjzu3853 [place] [address]Dr. Nahed Yañez Glucose Ql (U) 100 mg/dl Abnormal NEGATIVE [facility] Comment on above: Performed By: #### U AMIC ####[facility] Ekpdhcqiqo7395[address] [place], [place] [address]Dr. Nahed Yañez Hemoglobin Ql (U) Negative Normal NEGATIVE [facility] Comment on above: Performed By: #### U AMIC ####[facility] Occelhqmre8746[address] [place], [place] [address]Dr. Nahed Yañez Ketones Ql (U) Negative Normal NEGATIVE [facility] Comment on above: Performed By: #### U AMIC ####[facility] Ufvqqaxobn1757[address] [place], [place] [address]Dr. Nahed Yañez LEUKOCYTES Negative Normal NEGATIVE [facility] Comment on above: Performed By: #### U AMIC ####[facility] Fizsofdokt4446[address] [place], [place] [address]Dr. Nahed Yañez MUCOUS NONE SEEN Normal NONE SEEN [facility] Comment on above: Performed By: #### U AMIC ####[facility] Uexfvqwcqc6189 [place] [address]Dr. Nahed Yañez Nitrite Ql (U) Negative Normal NEGATIVE [facility] Comment on above: Performed By: #### U AMIC ####[facility] Udkxxjbouw4987 [place] [address]Dr. Nahed Yañez pH (U) 5.5 [pH] Normal 5-9 [facility] Comment on above: Performed By: #### U AMIC ####[facility] Wvylppdvmv2375 [place] [address]Dr. Nahed Yañez RBC NONE SEEN Abnormal 0-2 [facility] Comment on above: Performed By: #### U AMIC ####[facility] Kifjgziwyi6750 [place] [address]Dr. Nahed Yañez SPEC GRAVITY 1.020 Normal 1.005-<=1.02 5 [facility] Comment on above: Performed By: #### U AMIC ####[facility] Buuakelekk[address] [place] [address]Dr. Nahed Yañez UA PROTEIN Negative Normal NEGATIVE/ TRACE [facility] Comment on above: Performed By: #### U AMIC ####[facility] Fzyydzpgiy0368 [place] [address]Dr. Nahed Yañez Urobilinogen Qn (U) 0.2 {Alem'U}/dL Normal 0.2 - 1. 0 [facility] Comment on above: Performed By: #### U AMIC ####[facility] Hiatwcclqr2839[address] [place], [place] [address]Dr. Nahed Yañez WBC NONE SEEN Normal NONE SEEN [facility] Comment on above: Performed By: #### U AMIC ####[facility] Wsephwqzco84[address] [place], [place] [address]Dr. Nahed Yañez BLOOD GASES BTYon 08-21-2022 02 MODE ROOM AIR Normal [facility] Comment on above: Performed By: #### A BG ####[facility] Bthqvaruka5047[address] [place], [place] [address]Dr. Nahed Yañez ALLENS TEST Positive Normal [facility] Comment on above: Performed By: #### A BG ####[facility] Wdnsaldasx5917[address] [place], [place] [address]Dr. Nahed Yañez Base excess Calc (Bld) [Moles/Vol] 3.2 mmol/L Critically high -2.0-2.0 [facility] Comment on above: Performed By: #### A BG ####[facility] Errluhfxer539[address] [place], [place] [address]Dr. Nahed Yañez BIPAP PRESSURE Normal [facility] Comment on above: Performed By: #### A BG ####[facility] Hfeiwwxnia5726 [place] [address]Dr. Nahed Yañez CPAP Normal [facility] Comment on above: Performed By: #### A BG ####[facility] Xtmrwppocg2242 [place] [address]Dr. Nahed Yañez FIO2 Normal [facility] Comment on above: Performed By: #### A BG ####[facility] Pxmocawucn4577 [place] [address]Dr. Nahed Yañez HCO3 (Bld) [Moles/Vol] 26.8 mmol/L Critically high 22.0-26 .0 [facility] Comment on above: Performed By: #### A BG ####[facility] Hnlehncwpd7059[address] [place], [place] [address]Dr. Nahed Yañez LPM Normal [facility] Comment on above: Performed By: #### A BG ####[facility] Wtepvkbymv7910[address] [place], [place] [address]Dr. Nahed Yañez MINUTE VOLUME Normal [facility] Comment on above: Performed By: #### A BG ####[facility] Jjmhsrshll1176[address] [place], [place] [address]Dr. Nahed Yañez Oxygen (Bld) [Partial pressure] 55.1 mm[Hg] Critically low 80.0-100.0 [facility] Comment on above: Performed By: #### A BG ####[facility] Gterkaukqt5194[address] [place], [place] [address]Dr. Nahed Yañez Oxygen saturation in Blood 90.2 % Critically low 95.0-100.0 [facility] Comment on above: Performed By: #### A BG ####[facility] Mhjbvvsdrh419[address] [place], [place] [address]Dr. Nahed Yañez PCO2 36.7 mmHg Normal 35.0-45.0 [facility] Comment on above: Performed By: #### A BG ####[facility] Laoodxtuec1806[address] [place], [place] [address]Dr. Nahed Yañez PEEP Normal [facility] Comment on above: Performed By: #### A BG ####[facility] Hhkryjkwdh4359 [place] [address]Dr. Nahed Yañez pH (Bld) 7.472 [pH] Critically high 7.350-7.450 [facility] Comment on above: Performed By: #### A BG ####[facility] Qufpvttkbi3282 [place] [address]Dr. Nahed Yañez PIP Normal [facility] Comment on above: Performed By: #### A BG ####[facility] Unjiswrkbi2107 [place] [address]Dr. Nahed Yañez PS [facility] Comment on above: Performed By: #### A BG ####[facility] Tasstnaenv0555[address] [place], [place] [address]Dr. Nahed Yañez PUNCTURE SITE LR Normal [facility] Comment on above: Performed By: #### A BG ####[facility] Wktilhzpwf5556[address] [place], [place] [address]Dr. Nahed Yañez RATE [facility] Comment on above: Performed By: #### A BG ####[facility] Gjmppadvyr[address] [place], [place] [address]Dr. Nahed Yañez VENT MODE [facility] Comment on above: Performed By: #### A BG ####[facility] Uviqkhjfvz5216[address] [place], [place] [address]Dr. Nahed Yañez VT [facility] Comment on above: Performed By: #### A BG ####[facility] Pmebouzfhp[address] [place], [place] [address]Dr. Nahed Yañez BNPon 08-21-2022 Natriuretic peptide B (Bld) [Mass/Vol] 131.0 pg/mL Normal <=900.0 [facility] Comment on above: Performed By: #### B FRUIT COORDINATOR ####[facility] Slqvzljhrm[address] [place], [place] [address]Dr. Nahed Yañez CARDIAC FRANCISCO 3-6on 3 CK [Catalytic activity/Vol] 17 U/L Critically low 26-192 [facility] Comment on above: Performed By: #### C MREP ####[facility] Hstxriqcco6267 [place] [address]Dr. Nahed Yañez CK.MB [Mass/Vol] ng/mL Normal <=3.60 [facility] Comment on above: Performed By: #### C MREP ####[facility] Ydtekhhata8126 [place] [address]Dr. Nahed Yañez HSTROP 25.1 pg/mL Normal 4.0-51.3 [facility] Comment on above: Result Comment: CUT- OFF POINTS HAVE BEEN ESTABLISHED BASED ON THE FOURTH UNIVERSAL DEFINITIONS OF MYOCARDIALINFARCTION. THE UPPER REFERENCE LIMIT (URL) OF TROPONIN, DEFINED THE 99TH PERCENTILE OFcTnI DISTRIBUTION IN A REFERENCE POPULATION, HAS BEEN CONFIRMED THE DECISION THRESHOLDFOR SD DIAGNOSIS. Performed By: #### C MREP ####[facility] Ydjfiyexkp8915 [place] [phone]. Nahed Yañez CARDIAC FRANCISCO ADMITon 023 CK [Catalytic activity/Vol] 39 U/L Normal 26-192 [facility] Comment on above: Performed By: #### B RENZO, CMADM ####[facility] Lcewnhaiso3164 [place] [address]Dr. Nahed Yañez CK.MB [Mass/Vol] ng/mL Normal <=3.60 [facility] Comment on above: Performed By: #### B RENZO, CMADM ####[facility] Jqpfnuxddg6592 [place] [address]Dr. Nahed Yañez HSTROP 24.4 pg/mL Normal 4.0-51.3 [facility] Comment on above: Result Comment: CUT- OFF POINTS HAVE BEEN ESTABLISHED BASED ON THE FOURTH UNIVERSAL DEFINITIONS OF MYOCARDIALINFARCTION. THE UPPER REFERENCE LIMIT (URL) OF TROPONIN, DEFINED THE 99TH PERCENTILE OFcTnI DISTRIBUTION IN A REFERENCE POPULATION, HAS BEEN CONFIRMED THE DECISION THRESHOLDFOR SD DIAGNOSIS. Performed By: #### B RENZO, CMADM ####[facility] Adpgmntkph7446 [place] [address]Dr. Nahed Yañez ANDRE 48 ng/mL Normal 9-82 [facility] Comment on above: Performed By: #### B RENZO, CMADM ####[facility] Xgdqoyiwqa8292 [place] [address]Dr. Nahed Otilio CBC AUTO DIFFon 08-21-2022 BASO # 0.0 103/ul Normal 0.0-0.1 [facility] Comment on above: Performed By: #### C BC ####[facility] Spzhorfkxq[address] [place], [place] [address]Dr. Nahed Yañez Basophils/100 WBC (Bld) 0.2 % Normal 0.2-2.0 [facility] Comment on above: Performed By: #### C BC ####[facility] Jmvnfjnlcl3[address] [place], [place] [address]Dr. Nahed Yañez EO # 0.3 103/ul Normal 0.0-0.7 [facility] Comment on above: Performed By: #### C BC ####[facility] Rxiabrndlp2398[address] [place], [place] [address]Dr. Nahed Yañez Eosinophils/100 WBC (Bld) 1.5 % Normal 0.9-7.0 [facility] Comment on above: Performed By: #### C BC ####[facility] Rnujgfejdx204[address] [place], [place] [address]Dr. Nahed Yañez Erythrocyte distribution width (RBC) [Ratio] 15.0 % Normal 11.0-15.0 [facility] Comment on above: Performed By: #### C BC ####[facility] Zaknflantw[address] [place], [place] [address]Dr. Nahed Yañez Hematocrit (Bld) [Volume fraction] 41.4 % Normal 36.0-48.0 [facility] Comment on above: Performed By: #### C BC ####[facility] Wapswqbdvp4[address] [place], [place] [address]Dr. Nahed Yañez Hemoglobin (Bld) [Mass/Vol] 13.5 g/dL Normal 12.0-16.0 [facility] Comment on above: Performed By: #### C BC ####[facility] Ytuuwwiobk[address] [place], [place] [address]Dr. Nahed Yañez IG # 0.18 10e3/ul Critically high 0.00-0.03 [facility] Comment on above: Performed By: #### C BC ####[facility] Bjfunuzage9732 [place] [address]Dr. Rosemarieashley Yañez IG % 1.0 % Critically high 0.0-0.5 [facility] Comment on above: Performed By: #### C BC ####[facility] Sqzkenrnxp7350 [place] [address]Dr. Nahed Yañez LYMPH # 2.5 103/ul Normal 1.2-3.8 [facility] Comment on above: Performed By: #### C BC ####[facility] Arxiwxuxym1668 [place] [address]Dr. Nahed Yañez Lymphocytes/100 WBC (Bld) 14.0 % Critically low 20.5-60.0 [facility] Comment on above: Performed By: #### C BC ####[facility] Rvtqqbhawt5227 [place] [address]Dr. Nahed Yañez MANUAL DIFF REQ NO Normal [facility] Comment on above: Performed By: #### C BC ####[facility] Kpnlbqzski6049 [place] [phone]. Nahed Otilio MCH (RBC) [Entitic mass] 28.5 pg Normal 26.7-34.0 [facility] Comment on above: Performed By: #### C BC ####[facility] Lumsdddebn9916 [place] [phone]. Nahed Yañez MCHC (RBC) [Mass/Vol] 32.6 g/dL Normal 29.9-35.2 [facility] Comment on above: Performed By: #### C BC ####[facility] Bveopzfjyl4457 [place] [phone]. Nahed Yañez MCV (RBC) [Entitic vol] 87.3 fL Normal 81.0-99.0 [facility] Comment on above: Performed By: #### C BC ####[facility] Shaydpnhmi5345 [place] [address]Dr. Nahed Yañez MONO # 1.2 103/ul Critically high 0.3-0.8 [facility] Comment on above: Performed By: #### C BC ####[facility] Heeouvsguq6463 [place] [phone]. Nahed Yañez Monocytes/100 WBC (Bld) 6.8 % Normal 1.7-12.0 [facility] Comment on above: Performed By: #### C BC ####[facility] Gchazftxnv4319 [place] [phone]. Nahed Yañez NEUT # 13.8 103/ul Critically high 1.4-6.5 [facility] Comment on above: Performed By: #### C BC ####[facility] Liuwggvimx1893 [place] [address]Dr. Nahed Yañez Neutrophils/100 WBC (Bld) 76.5 % Critically high 43.0-75.0 [facility] Comment on above: Performed By: #### C BC ####[facility] Mlgnqgvqzy8038 [place] [address]Dr. Nahed Yañez Platelet mean volume (Bld) [Entitic vol] 10.5 fL Normal 9.5-13.5 [facility] Comment on above: Performed By: #### C BC ####[facility] Xeqrtkbabd77[address] [place], [place] [address]Dr. Nahed Yañez PLT 319 103/ul Normal 150-450 [facility] Comment on above: Performed By: #### C BC ####[facility] Dyzsdvtksq1283 [place] [phone]. Nahed Yañez RBC 4.74 106/ul Normal 4.20-5.40 [facility] Comment on above: Performed By: #### C BC ####[facility] Wiximvipni7391 [place] [phone]. Nahed Yañez WBC 18.0 103/ul Critically high 4.0-11.0 [facility] Comment on above: Performed By: #### C BC ####[facility] [address]vrdtihj[address] [place], [place] [address]Dr. Nahed Yañez CULTURE BLOODon 08-21-2022 Microscopic examination of blood, culture Culture Observations: NO GROWTH AT 5 DAYS. Normal [facility] Comment on above: Performed By: #### B LDCX2 ####[facility] Nyfpxsifmz8474 [place] [address]Dr. Nahed Yañez Microscopic examination of blood, culture Culture Observations: NO GROWTH AT 5 DAYS. Normal [facility] Comment on above: Performed By: #### B LDCX1 ####[facility] [address] [place] [address]Dr. Nahed Yañez Covid-19 PCR (CVDTB)on 08-12 SARS-CoV-2 (COVID-19) RNA MIRNA+probe Ql (Unsp spec) Not detected Normal NOT DETECTED [facility] [...] for this test is supported by the [place] of Health and Human Service's declaration that [...] be used). Performed By: #### C VDTBH ####[facility] [address] [place] [address]Dr. Nahed Yañez LACTATE/LACTIC ACIDon 2022 Lactate [Moles/Vol] 1.1 mmol/L Normal 0.4-2.0 [facility] Comment on above: Performed By: #### L ACT ####[facility] [address] [place] [id number]. Nahed Yañez Lactate [Moles/Vol] 2.4 mmol/L Critically high 0.4-2.0 [facility] Comment on above: Performed By: #### L ACT ####[facility] [address] [place] [address]Dr. Nahed Yañez POINT OF CARE GLUCOSEon 08-12 Glucose [Mass/Vol] 453 mg/dL Critically high 74-106 [facility] Comment on above: Performed By: #### P OCGLUC ####[facility] [address] [place] [address]Dr. Rosemarieashley Yañez Glucose [Mass/Vol] 358 mg/dL Critically high 74-106 [facility] Comment on above: Performed By: #### P OCGLUC ####[facility] [address] [place] [address]Dr. Nahed Yañez Glucose [Mass/Vol] 98 mg/dL Normal 74-106 [facility] Comment on above: Performed By: #### P OCGLUC ####[facility] [address] [place] [address]Dr. Nahed Yañez PROF CHEM 8 (BAS METB)on Anion gap [Moles/Vol] 14.7 mmol/L Normal [facility] Comment on above: Performed By: #### B MP, CMADM ####[facility] [address] [place], [place] [address]Dr. Nahed Yañez Calcium [Mass/Vol] 9.6 mg/dL Normal 8.5-10.1 [facility] Comment on above: Performed By: #### B MP, CMADM ####[facility] [address] [place] [address]Dr. Nahed Yañez Chloride [Moles/Vol] 95 mmol/L Critically low 98-107 [facility] Comment on above: Performed By: #### B MP, CMADM ####[facility] [address] [place], [place] [address]Dr. Nahed Yañez CO2 [Moles/Vol] 25.2 mmol/L Normal 21.0-32.0 [facility] Comment on above: Performed By: #### B MP, CMADM ####[facility] [address] [place] [address]Dr. Nahed Yañez Creatinine [Mass/Vol] 1.15 mg/dL Critically high 0.55-1.02 [facility] Comment on above: Performed By: #### ERICK Ordonez MP ####[facility] [address] [place] [address]Dr. Nahed Yañez EGFR-AF GREEK 58 mL/min/1.73m2 Critically low >=60 [facility] Comment on above: Performed By: #### ERICK Ordonez MP ####[facility] [address] [place] [address]Dr. Nahed Yañez EGFR-NON AF GREEK 48 mL/min/1.73m2 Critically low >=60 [facility] Comment on above: Performed By: #### ERICK Ordonez MP ####[facility] [address] [place] [address]Dr. Nahed Yañez Glucose [Mass/Vol] 191 mg/dL Critically high 74-[address] [facility] Comment on above: Performed By: #### ERICK Ordonez MP ####[facility] [address] [place] [address]Dr. Nahed Yañez Potassium [Moles/Vol] 3.9 mmol/L Normal 3.5-5.1 [facility] Comment on above: Performed By: #### ERICK Ordonez MP ####[facility] [address] [place] [address]Dr. Nahed Yañez Sodium [Moles/Vol] 131 mmol/L Critically low 136-145 [facility] Comment on above: Performed By: #### ERICK Ordonez MP ####[facility] [address] [place] [address]Dr. Nahed Yañez Urea nitrogen [Mass/Vol] 15.0 mg/dL Normal 7.0-18.0 [facility] Comment on above: Performed By: #### ERICK Ordonez MP ####[facility] [address] [place] [address]Dr. Nahed Yañez Urea nitrogen/Creatinine [Mass ratio] 13.0 mg/mg Normal [facility] Comment on above: Performed By: #### ERICK Ordonez MP ####[facility] [address] [place], [place] [address]GaShaun Yañez XR CHEST 2 Von 08-21-2022 XR CHEST 2 V Normal [facility] Coding Summary.on 08-11-2022 Coding Summary. CD:[id number] W w+PGhlYWQ+RE3CSPHsZ10 gvGEqxA0yN7ERYGbVTdbl NLPTJXuWJsPvsfZxRK9oy XNjZXJu IC8+VI4zORDnYxgjvHUih 7Z9iQO9I35nke1hKUxjdT F4IHPkIwQsjyzwr7tlrIp 6IDcuNmluOyBt PURnbP45AZM6fL73Cl66d NBmkDGok0yriZg7YkVnSN DlMUS0fYmoXYuje8FmBXC qD51qjYOuy1P6 KFRnqKzyfVBmVlFuxCS4r K2iRRdefkyzu8oybzjpYy t8wt41zXPkh2G1iQN6Y6C uoqR6TWKmwGYu RarkgRZVsY4dmmfsd7egy nyfPbAzKTReAWb6PZz3UJ GfkEosXfReGZ75TRU5MLJ lwlInL6UkPHQr yXdgRjV3a2K6Fb5CE9BIP pjfH4IRJIQSHTbimVI+PC 81hu11P0NgYzgbCqb7LXF qFHR1cRM2fE6u UERyFWpoc8V8eMF4Z2Bwj nMwks1rx3doZWNhLLshL7 2ttVYlw4L5TTBduLU4XHG vyCrsRfBhlJ16 Oyc+WZXmpDsqv8UfXfyxs 9rln8pzgIe4OowvNLBajc RgyHvaGJO4a5TuEi9oMCO alPW0xAU7rK4p QiWnEnR7NOarQ091YcCqn WZiRzotE19zG9HmvLU+PH QuQmw0LRFkmPouWX3uA2B hZGRpbmctbGVm kJctPP5cYBVbokfkHRWuq I4aHRNzV9k0SyXjEoJ9EN wtM5OsBPLlyqvoWx17mR3 wEnKfVmJ5NQle N1JtubX2APZpgQWhLGjpP MX5F70va5E7DDMfUFHrFK G1zCY5mX8kyEkxmbszzWM mdDsgdmVydGlj YElfMZipU870PUDiyVqrK kNvZGluZyBEYXRlOiAgMD MvMzEvMjAyMzwvdGQ+PHR rYEA0hZdfQAHv pVEcWRxmPz7xbUbdqCqzX V1aDTWwlqauDGJpwK2dBS DeqUNeqFxyPI3lVFLrknv oc495NwMtXGP2 ZOVgzWQkH8JspT9lPuQeI YQqAMUnH8WouGQnRXqxW6 41FFxkJlB1YLGwqwKjQ8W sLWFsaWduOiB0 e4Q8Td4Fq6MwtvynE5Cbu LDeDeVzDxraXSx3Y1YiPs wvdHI+OM16UQFgJV28KYv 3PMW7uQahJVbe GPNxO1ClwH6tOpZsIOAdE GRkOyc+PHRhYmxlIHdpZH RoPScxMDAlJyBzdHlsZT0 iAp5gDMIqPWTa lZyxbNGyGvJwc2vwERVdA RadEC1rjUyqH4TbxQQ5YO Dny4u9Oe36X19fJ7AdbLE +QKMqqZV9aCJ8 oQ7xKsJmDnP0VMhwN331R kCtgIOjQcsed6ilq5fruH n2TuT3JMMxxvBupMhyXTN 5s9IfPx63A07j IHdpZHRoPSIxNSUiIHZhb Fionn4ktO6mQj8+PGNvbC R2gAN1uU4vKhTnVvD5ACm vF262LhClpSRu Pksjr7pzo0gmvDj4ZqXbR KUnfwSgaCvwHEN9v0BeTl 99X5XbaOuhq3UaSrj2zd1 0qPRrq8D0dHQ4 B0QrPOKkosudoRBerVqmE P4zJTYykdpsFKCjcF7dVV EkZ7u7YrBwZkJ3VGwbI0R eauJ7EUYwsWKh NORwsEWGhU9mxkhth2iys jpbGbSrQZKjAWl8QIt9XW ErqCtvSdIwUTS8LqX2ZFE 0vWDrbG7cmRux zvqkgL3oJkl+LQM6wTVcr MBSKI1dZnmpfXN+PHRkIH L6yIkxOYgcORDpbI5nDRS qY5m0OuQdEoV3 OOmkI8HbqyD6TDEkzNJuB WXfjFUWdF3dxexmm0ouic tcVdQrQNAbQGa9RGs8GFC saWduOiBsZWZ0 ZzF0BDH5aSLhyD9kdTfao vekeZ3gKia+QmlydGggRG K3GCy0O6QvFvs5RURzhFq aGO0suHVyNBbb Sf6wbDfckTugOI5wYXVff mnec178QnRfr7wbHWAplY AbBBarRTO5S48ms6X6SGF aUJNpRUO9bYY7 mJ1qpDnuxcxfuAAeeRdal dMztZxvOQytDQfkC229NC VctSsrCjUnNMg7L8BlXmj 0PTNafQpkUM6b rOFhXTsvKw5hnHxpkJroL Z1yITZjapqcq200PvXlz1 mkAIZwrBFdYYowOKD6A30 hq7K4SHPfAOBp CID6sXQ6qQ5cqThgldoas GVmdDsgdmVydGljYWwtYW ddS732TODpwUhtAyCslMo 8L9PiHir6WEOr pStwDE7bbJMfXVtvUq5mq BrxsJdfBA6yGBImohfiu8 60GpCwx4rdBEUviODtYVg lMUL0U71cu8O6 SHIoEZHvNGK3bWT7kC3np GlnbjogbGVmdDsgdmVydG gaOCerAIvpN058DZKdjRy nPlBhdGllbnQg LYzcNIq9P8LsIqseiIJ+P O54BFFjYM14aLUnwXMea2 osuPc5UoEtWAVaYMG0vFt hDSsfh9HnAONb L19jtNUys2E2OKHppMepi QNoNuXwrCV0eF7nRFlshs xpg4bsjzzsKkswe7zdgj9 1qY09L61oACfe ZHRoPSIzMCUiIHZhbGlnb y9nkW3bSf4+GPWizGM9oK F0tK4eSKGbMiT8UYzrS23 9InRvcCIvPjxj b1sbf9ydvNc1HmM8ZPKkb mWsdLcbSUG3o5TlUy60O7 9sIHdpZHRoPSIyMCUiIHZ cvEsmva3bfW6o Ii8+MTZheHG1iKW0eP0aN pKbGbM0ZWimR159OhVyfH WvPdiyR53vW6RpeGB+PHR aYio5MBNfmFsi FO0ibXPxORapZf1nLBG4L dXqKjAxHEgpJ3GtFAIwgt nnrdgqiVJ3WFEkJEZvhF0 8Oa8biVzkAHUo qJJSsB5vqgylu9zgcxgdO lNlMSNcCBa1GVz9AWKcaO krMjKvMQI3WuG5QGK5hFA noB6eoZggjfgo kP5qR1LsYODqjhyrQs89f V1gJvXqXkV5TYjqOtr+TU IVJH9BODLQEZKPAFS0L1X tXja7GDQxoMot JT7oxAHnRSfoNe0moCbzk QozLG0gUZHgvzjvMTHpxU 5mCOObmQFahOqaNK9lPHJ ukqayg713XxSj CKC0XTIezJApY6EylT6zO pLhBWNfJFXjN6PwoUTjRD wkZ518WBdjZjH7HZTwvfR fU6JlVFPagSkm JeQ9e5M2Cg8cQC4vMN5tZ NKmYW57XX19oELfz9D4gN G7Q5BtIMOxufknqgzliDU 4YZLpQWIelW28 lNCoIEhhBv3xs6I3e348Q YFoZHLlgN91Us1ahNmzHO ZboVUBwO3nfhsjh0wtdfg gIzAwMDAwMDt0 HEu4RKHxeKelLpEqNWQ7J iQ7MRY4qMPunK3yzWnwkt ncuR5zJnw+NjEgWWVhcnM 0U9IxMme9ALJr kGnjNT5mrDLsMAymNa4rv WdzlPjpAM6eSTCodmeyHF KxbH9eYPRxqHFavVasLM8 dPCUcsduld713 BfVgWBV3AHAihKSqT1Kgl U0wZwOkFDXnRKYhZ9BfrQ VdRNlcV459TCmjVrM2BYI lysCzO5JqTVOv iEtaRfE8a5B7Co9WFQ4nd QP8I7WeUpm1ZTMleBhwTO 2ojAYwFQapAr2rjXzdhAj lBY6vATJovwqz TVNwzZ7gDWUcyRZacSitL I0oWHJsvgzlm048SrYtAO T2GVKrsTVcH3TyuZ9dJkJ vCRVbUVNdW2Yb rUFoUHwhY806ZBiiRfD8O SVjlyHmM7GbXBCzfDaqLq F0f7I4Zj0VwKGdW1IjV6o 0R0YlGtdqbKJ+ IJ95AIOnVX00rTGcgFDqd 9xaiHu9IuRgBFQbNGW8fC rqPOfwt7ZcZNRcS46ivIX eh7N1JPRlbShz sYXaJnFarED6tD2yPFupu sxsf5pcwfrfNrfwb2nvon 67gR12Y99fYIejQYKxNQA zMCUiIHZhbGln pc3mrG3yXr3+KHDggZA7p NW3pO6tSnTlUzG5NYxaQ8 88UiBrgKOjOhgxy0jos1n vxJq1DlYsSSQx maSclNomSWF4k6HfYl03Z 29sIHdpZHRoPSIyMCUiIH XwfOvuwf9tjY4jKy2+PC9 km0gqrp39dW03 dHI+JXZjUYZ9jLazFMpfF QBkoY1uCQddYvS9CFKqGw IvvC12kWIlSEazBd9ecTs mjLbrGK4gPPRo rlbjs222RzTxt9kuAOFla EUmEDvkUUX6G17pk8F4AY FsTNHvZDU8iOV7wC0xmKe nbjogbGVmdDsg kyJjjOalBVvwPZjuC594L PQanVvkRoMrbFHrD7vunp XAZV8mTgcgcIX+PHRkIHN 0eWxlPSdwYWRk uX7eCKRcB4e8GtVaMgD1X YflS8KnapZ7PNSxqTCpGC JukNVZgG4jowzeq7chwos gIzAwMDAwMDt0 YFc7PGCtqUbwSgFgWWU4N fF0PJI4lENeqE8stOtrdm uupC0wFtd+RklOOjwvdGQ +YLYvYIM8mGje XXcfKDYrnV1vQHLvL7z1L uIkJhL5VCapS3GhjfY5GG RgnZGtDOHssHUIpT1jgia gz6vusyqgLhNz KGMmLGb4NRa9FUNfnEiuM lJnKYW5GgQ5SOS7oTDndU 8fhDlxahfakT2sGdh+TVJ OOjwvdGQ+PHRk LDE6jOehVPquCATysF9gK FXnW1j8YeOpIlZ5QPelY5 TkudY1DLDniGQxLTKakMN YuM8rsbxeo8kn aleiWwHvOJHvUKt7IAr0B ACteYsaXsUfNYW4IuK2KZ C1hUAilP7ygDbnaiwdoS0 wOyc+YSZ1LNB6 RF90BY24Q2DnYkrxwNNns +PHRhYmxlIHdpZHRoPS igDLOsInKjiPbiSP7rKb8 yZGVyLWNvbGxh cHNlOiBj (more content not included)... Normal [facility] Auto Diffon 08-09-2022 Basophils/100 WBC (Bld) 0.5 % Normal 0.0-2.0 [facility] Comment on above: Order Comment: Order Added by Discern Expert. Performed By: #### 2 563329, 7301944, 72077167, 0050907, 48039425, 71811674, 26602901 ####[facility] [address] [place] [address] Basophils/Leukocytes Auto (Bld) [Pure # fraction] 0.1 E9/L Normal 0.0-0.2 [facility] Comment on above: Order Comment: Order Added by Discern Expert. Performed By: #### 2 592700, 4494439, 38809708, 0076503, 40515579, 17556737, 26684837 ####[facility] [address] [place] [address] Eosinophils/100 WBC (Bld) 2.7 % Normal 0.0-8.0 [facility] Comment on above: Order Comment: Order Added by Discern Expert. Performed By: #### 2 175412, 4882937, 40401354, 7276955, 32659585, 47521905, 88713189 ####[facility] [address] [place] [address] Eosinophils/Leukocytes Auto (Bld) [Pure # fraction] 0.4 E9/L Normal 0.0-0.5 [facility] Comment on above: Order Comment: Order Added by Discern Expert. Performed By: #### 2 862192, 9600076, 07744949, 5567038, 76615136, 47290911, 33376382 ####[facility] [address] [place] [address] Lymphocytes/100 WBC (Bld) 12.8 % Low 14.0-50.0 [facility] Comment on above: Order Comment: Order Added by Discern Expert. Performed By: #### 2 779396, 9700066, 92593370, 0425663, 11989873, 39214977, 73566712 ####[facility] [address] [place] [address] Lymphocytes/Leukocytes Auto (Bld) [Pure # fraction] 2.1 E9/L Normal 1.0-4.0 [facility] Comment on above: Order Comment: Order Added by Refugio Expert. Performed By: #### 2 115112, 9316763, 93618696, 4127152, 28290097, 08181019, 80533025 ####[facility] [address] [place] [address] Monocytes/100 WBC (Bld) 6.4 % Normal 4.0-14.0 [facility] Comment on above: Order Comment: Order Added by Refugio Expert. Performed By: #### 2 831256, 9582701, 63257778, 0569225, 71038349, 86156293, 30151103 ####[facility] [address] [place] [address] Monocytes/Leukocytes Auto (Bld) [Pure # fraction] 1.0 E9/L Normal 0.2-1.0 [facility] Comment on above: Order Comment: Order Added by Refugio Expert. Performed By: #### 2 553810, 7049060, 11330871, 0101031, 30420222, 96899757, 06277958 ####[address] [address] [place] [address] Neutrophils/100 WBC (Bld) 77.6 % High 36.0-75.0 [facility] Comment on above: Order Comment: Order Added by Discern Expert. Performed By: #### 2 434094, 2588561, 44209628, 6596986, 91262313, 98808811, 55534881 ####[facility] [address] [place] [address] Neutrophils/Leukocytes Auto (Bld) [Pure # fraction] 12.6 E9/L High 2.0-7.5 [facility] Comment on above: Order Comment: Order Added by Discern Expert. Performed By: #### 2 174039, 2537939, 31466578, 7149049, 75319601, 90795449, 47709322 ####[facility] [address] [place] [address] BMPon 08-09-2022 Creatinine [Mass/Vol] 1.1 mg/dL Normal 0.5-1.3 [facility] Comment on above: Performed By: #### 2 331486, 4913283, 81111401, 7513149, 58833780, 13811357, 10313868 ####[facility] [address] [place] [address] Urea nitrogen [Mass/Vol] 18 mg/dL Normal 5-21 [facility] Comment on above: Performed By: #### 2 414450, 2414029, 46194110, 9315247, 80309850, 95613863, 43084652 ####[facility] [address] [place] [address] Urea nitrogen/Creatinine [Mass ratio] 16 No Units Normal 10-20 [facility] Comment on above: Performed By: #### 2 025639, 6343484, 85308234, 1702491, 95353152, 36907052, 08598769 ####[facility] [address] [place] [address] Anion gap [Moles/Vol] 13 mmol/L Normal 6-16 [facility] Comment on above: Performed By: #### 2 527681, 9253207, 07229417, 5038988, 93530190, 91450651, 52935415 ####[facility] [address] [place] [address] Calcium [Mass/Vol] 8.8 mg/dL Low 8.9-11.1 [facility] Comment on above: Performed By: #### 2 826775, 2829611, 46960357, 1583247, 25178294, 82687077, 92071738 ####[facility] [address] [place] [address] Chloride [Moles/Vol] 101 mmol/L Normal 101-111 [facility] Comment on above: Performed By: #### 2 700403, 0845559, 45323167, 4478056, 76071650, 21593387, 38480163 ####[facility] [address] [place] [address] CO2 [Moles/Vol] 27 mmol/L Normal 21-31 [facility] Comment on above: Performed By: #### 2 396872, 9232398, 14637258, 8551049, 98823392, 01635342, 36933939 ####[facility] [address] [place] [address] Glucose [Mass/Vol] 121 mg/dL Normal 55-199 [facility] Comment on above: Result Comment: If t his glucose result represents a fasting glucose, interpretation should refer to the following reference range: 55-99 mg/dL Performed By: #### 2 315964, 8904053, 57401239, 2309370, 10668061, 99405075, 53828121 ####[facility] [address] [place] [address] Potassium [Moles/Vol] 3.9 mmol/L Normal 3.5-5.3 [facility] Comment on above: Performed By: #### 2 182115, 4214407, 93976950, 0251806, 75717155, 56726448, 14049261 ####[facility] [address] [place] [address] Sodium [Moles/Vol] 137 mmol/L Normal 135-145 [facility] Comment on above: Performed By: #### 2 132560, 5002528, 40716208, 7916978, 33902359, 00673938, 50968899 ####[facility] [address] [place] [address] BNPon 08-09-2022 Int Ctr BNP Pass Normal [facility] Comment on above: Performed By: #### 2 457175, 2594666, 24759144, 0252242, 36199909, 91951064, 54268703 ####[facility] [address] [place] [address] Natriuretic peptide B (Bld) [Mass/Vol] 19 pg/mL Normal 5-80 [facility] Comment on above: Performed By: #### 2 857433, 9325686, 06103339, 8048361, 58598821, 64907662, 03434118 ####[facility] [address] [place] [address] Blood Gas Art, with Lytes, G alex, [place] 08-09-2022 a/A Ratio Art 75.90 % Normal >=0.80 [facility] Comment on above: Performed By: #### 4 [id number] ####[facility] [address] [place] [address] AaDO2 Art 21.9 mmHg High 5.0-15.0 [facility] Comment on above: Performed By: #### 4 [id number] ####[facility] [address] [place] [address] Allens Test Not Applicable Normal [facility] Comment on above: Performed By: #### 4 [id number] ####[facility] [address] [place] [address] Base Excess Arterial 3.1 mmol/L Normal >=2.8 [facility] Comment on above: Performed By: #### 4 [id number] ####[facility] [address] [facility] [place] [address] cCa2+ Art 4.86 mg/dL Normal 4.40-5.30 [facility] Comment on above: Performed By: #### 4 [id number] ####[facility] [address] [place] [address] cCl- Art 105.0 mmol/L Normal 101.0-111.0 [facility] Comment on above: Performed By: #### 4 96827294 ####[facility] [address] [place] [address] cGlu Art 117 mg/dL High 55-99 [facility] Comment on above: Performed By: #### 4 [id number] ####[address] [address] [facility] [place] [address] cK+ Art 4.0 mmol/L Normal 3.5-5.3 [facility] Comment on above: Performed By: #### 4 [id number] ####[address] [address] [facility] [place] [address] cLac Art 1.4 mmol/L Normal .5-2.2 [facility] Comment on above: Performed By: #### 4 [id number] ####[facility] [address] [facility] [place] [address] manager of financial+ Art 142.0 mmol/L Normal 135.0-145.0 [facility] Comment on above: Performed By: #### 4 [id number] ####[facility] [address] [place] [address] Drawn by RLG Invalid Interpretation Code [facility] Comment on above: Performed By: #### 4 [id number] ####[place] [address] [facility] [place] [address] FCOHb Art 1.0 % Low 1.5-4.9 [facility] Comment on above: Result Comment: Refe rence range Nonsmoker <1.5% Smoker <5.0% Heavy Smoker <9.0% Performed By: #### 4 [id number] ####[facility] [address] [place] [address] FIO2 BG 21 Invalid Interpretation Code [facility] Comment on above: Performed By: #### 4 [id number] ####[address] [place] [address] FMetHb Art 0.5 % Normal 0.0-1.9 [facility] Comment on above: Performed By: #### 4 [id number] ####[address] [place] [address] FO2Hb Art 92.6 % Normal 92.0-100.0 [facility] Comment on above: Performed By: #### 4 [id number] ####[address] [address] HCO3 (Bld) [Moles/Vol] 27.1 mmol/L High 22.0-26.0 [facility] Comment on above: Performed By: #### 4 [id number] ####[address] [address] Hemoglobin (Bld) [Mass/Vol] 12.5 g/dL Normal 12.0-16.0 [facility] Comment on above: Performed By: #### 4 [id number] ####[address] [address] Oxygen saturation in Blood 94.1 % Low 95.0-100.0 [facility] Comment on above: Performed By: #### 4 [id number] ####[address] [place] [address] P CO2 Arterial 48.9 mmHg High 35.0-45.0 [facility] Comment on above: Performed By: #### 4 [id number] ####[address] [facility] [place] [address] P O2 Arterial 68.8 mmHg Low 80.0-100.0 [facility] Comment on above: Performed By: #### 4 [id number] ####[address] [place] [address] pH Arterial 7.383 Normal 7.350-7.450 [facility] Comment on above: Performed By: #### 4 [id number] ####[place] [address] Sample Site R Brachial Normal [facility] Comment on above: Performed By: #### 4 [id number] ####[place] [address] Sample Type Arterial Draw Normal [facility] Comment on above: Performed By: #### 4 [id number] ####[place] [address] CBC w/ Auto Diffon 3 Erythrocyte distribution width (RBC) [Ratio] 15.4 % High 10.9-14.2 [facility] Comment on above: Performed By: #### 2 877549, 3441695, 04071731, 2389300, 48837730, 88195278, 39926522 ####[facility] [address] [place], [place] [address] Hematocrit (Bld) [Volume fraction] 36.9 % Normal 34.0-46.0 [facility] Comment on above: Performed By: #### 2 034913, 1997536, 02846505, 2842256, 62054291, 25318485, 59779370 ####[address] [address] Hemoglobin (Bld) [Mass/Vol] 11.8 g/dL Low 12.0-16.0 [facility] Comment on above: Performed By: #### 2 265546, 0945167, 00560515, 3846481, 31638414, 34007440, 47054742 ####[facility] [address] [place] [address] MCH (RBC) [Entitic mass] 28.0 pg Normal 27.0-34.0 [facility] Comment on above: Performed By: #### 2 722909, 8335895, 10231995, 6414807, 77703916, 05612383, 32220170 ####[facility] [address] [place] [address] MCHC (RBC) [Mass/Vol] 32.0 g/dL Normal 31.4-36.0 [facility] Comment on above: Performed By: #### 2 026863, 4239401, 72669783, 9359421, 06323604, 11359048, 57127893 ####[facility] [address] [place] [address] MCV (RBC) [Entitic vol] 87.6 fL Normal 80.0-100.0 [facility] Comment on above: Performed By: #### 2 535285, 5640812, 14055102, 3969481, 61594448, 84433927, 65819181 ####[address] [address] Platelet mean volume (Bld) [Entitic vol] 8.4 fL Normal 6.4-10.8 [facility] Comment on above: Performed By: #### 2 742837, 6908031, 15349352, 2069975, 35673346, 22401130, 20840632 ####[address] [address] Platelets (Bld) [#/Vol] 238.0 E9/L Normal 150.0-500.0 [facility] Comment on above: Performed By: #### 2 381266, 2324739, 55547235, 1922481, 81879742, 11095555, 46325116 ####[address] [address] RBC (Bld) [#/Vol] 4.2 E12/L Low 4.3-5.9 [facility] Comment on above: Performed By: #### 2 139082, 0038543, 63212375, 5322592, 62215313, 39026352, 14726033 ####[address] [place] [address] WBC corrected for nucl RBC Auto (Bld) [#/Vol] 16.3 E9/L High 4.0-11.0 [facility] Comment on above: Result Comment: Franny chaudhry reviewed by LW. Performed By: #### 2 049408, 6113543, 27472023, 0755809, 87171560, 43341918, 57491703 ####[facility] [address] [place] [address] CHEMISTRYOrdered By: SYSTEM SYSTEM on 08-09-2022 Troponin [...] 18 mg/dL Normal 5 - 21 mg/dL [facility] Remisol Urea nitrogen/Creatinine [Mass ratio] 16 mg/mg Normal 10 - 20 [facility] Remisol CHEMISTRYOrdered By: Evelyn Mercado tter on [...] 370 Contrast amount in ml's: 73 Normal [facility] Discharge Instructionson Discharge Instructions [id number]# 1.00CD:127 Normal [facility] ED Clinical Summaryon 2022 ED Clinical Summary [place] [id number] ED Clinical Summary Person Information Name: VIVIAN VANN Vika/[facility] Age: 62 Years : 1960 Sex: Female Language: Haitian PCP: Екатерина Robert MD Marital Status: Visit [...] 08/09/2022 18:01:49 08/09/2022 18:01:49 08/09/2022 18:01:49 ADDRESS: [address] [id number] PHYS DOC NOTES: MEDICAL INFORMATION: Prescriptions Given: [facility], [address] [place], [place] [id number], [phone] brompheniramine/dextr omethorphan/PSE (Bromfed DM oral syrup) 5 [...] Follow up: With: Address: When: Екатерина Robert [address] [place] [address], [facility] [place] [id number] [facility] (1) In 3 days 08/12/2022 Comments: Call the office of your primary care doctor to arrange for follow-up within the above-stated timeframe. Follow-up with your primary care doctor about this ED visit. You should review your labs, imaging, and diagnoses from this ED visit with your primary care physician. If y (more content not included)... Normal [facility] ED Note-Physicianon 08-10-19 ED Note-Physician [...] that she has had 2 admissions to [facility] over the last few weeks for pneumonia/COPD exacerbation. Patient is currently on amoxicillin at home, feels that her symptoms are not improving but are in fact worsening. Patient endorses fevers and chills, myalgias. Patient reports her symptoms had not improved much on her last discharge from [facility], and worsening since that time. Patient is [...] and Complexity of Problems Differential Diagnosis: [] [facility] Data External documents reviewed: [] My [...] co (more content not included)... Normal [facility] Comment on above: Result Comment: Elec [...] cough). ? Wheezing. ? Rapid breaths. ? Dnag or bluish discoloration (cyanosis) of the skin, [...] these instructions at home: Medicines ? Take mxjj-ajb-yxhoizs and prescription medicines (inhaled or pills) only [...] you e (more content not included)... Normal [facility] ED Patient Summaryon 023 ED Patient Summary [address] [address] Patient Discharge Instructions Person Information Name: VIVIAN VANN Age: 62 Years Arrival Date: 08/09/2022 13:09:07 Discharge Diagnosis: COPD exacerbation Primary Care Physician: Екатерина Robert MD Provider Information Primary Provider: Arsenio Martin DO Advanced Quill Layer:Clinton Lucero PA-C The exam and treatment you received in the Emergency Department were for an urgent problem and are not intended as complete care. It is important that you follow up with a doctor, nurse practitioner, or physician?s life enrichment assistant for ongoing care. If your symptoms [...] Follow-up Instructions: With: Address: When: Екатерина Robert [address] [place] [address], [place] [address] Business (1) In 3 days [...] opioids can be used to help relieve ssxccgez-my-gsqmgq pain and are often prescribed following a [...] Safely disp (more content not included)... Normal [facility] EMS Documentationon 08-10-19 EMS Documentation Please click on link to see report [id number] CiX5+prnDQolQUJDcGRmI ZUpTwN2HQgxJjFjVY7qjw 7LQZtHZ4QdUMNpWDo9Qy8 I MTjtHEp2NCSpLK2MF8juK Uf1NtJ9Kv4SwN2iZZMnns TtPDUSF34nWozgKeYlMSs jRPXzHtz6YbEA Sx5bNYAhMAGtGDEtKSYhP CAgICAgICAgICAgICAgIC AgICAgICAgICAgICAgICA gICAgICAgICAg ICAgICAgICAgICAgICAgI CAgICAgDQplbmRvYmoNCg 0FqOVyOb2PAkUlLiGEDrS wMDAwMDAwMzIg RAVdGSWowd2AHIXlQIYcX VH9ICOaRFKwUDDpUQcsFK YdYVKdDCm6PJRwMSClHL5 NCjAwMDAwMDE3 XDRgGIAoZGFaeb6WIWPhH DAwMTkzNCAwMDAwMCBuDQ skTYRmKPMeKZf4TBJnDFX cEI0ZAxMdJZJe PKWxQvYcOYPaOSYkiy2SN DAwMDAwMjMxNSAwMDAwMC PuQGfsFYZpKEOuCmo7PGF mSWScDT7VHkHj QSRrUCI4DCqmKHIhEGXsl j0SEMJePOUqTbxyVNHaFY AwMCBuDQowMDAwMDAzMDY bLJDfCXSnAJ6A RkLcYERuCJC1IEQxJXNkP PYfyv6ZUIGuANWaHpIgUw AwMDAwMCBuDQowMDAwMDA iYMZ7OMQbSZEl ZJ8APeUdLZGfWPRvARDmM CTeQXBeaa4OFYTvYTBgKL T4ZzOuZRKaYUQnUUxxTMA vZIQ1AjW3XODl XULlAC7WJgYsHKEfNTB4G KFwKQFvNZBkfy4HXHVmPZ JyQGZ1FSCwNNCoXLZeJHq jXSBzWIF4RHY6 SSYuWDCeWQ3JXoGuSZOcN WO0UMopNCCtNYIwdo2TQJ AwMDAwOTMwMCAwMDAwMCB uDQowMDAwMDQ5 QOytDKWgYVPhUZ2RMkKbZ SQuENQ2HORlHGOmZJQqln 9AlFUkjTvkza9APAmLB3b IDMt0UBDGZNJ7 JtP3C0N1FtM0SCcVKGbuH LA0FMQUTvM5YCP+CjxGRj MkK1BNXXFJVBMsZgzxJMO DTKW0BLutWDy5 DPMdSM2hNu6XoiG7QIF7J MpzOZsqHd0frGCxZxTuHZ IVH9QnllHjNRaGO1QnsCI tACRvO6BOJLP1 Ax92NhtmbLvGKSI5JLDRV BhvMD8LDzmVOhQcOLcoYx 99W6AUl2B5WbPqL5JSaCs RozQLKYnkH0xT lFR3w4npjQcIvCYUqSwkY GdJcndPalFSQUlqUHNXaE 47wytMX4TtZPz9Z5WWTl6 TPQwiVpYzzM3E mSgkUKD3dK0rJCPOVDsUG opkHG3WQDYLWKu0TXn+Pi AgICAgICAgICAgICAgICA gICAgICAgICAg ICAgICAgICAgICAgICAgI CAgICAgICAgICAgICAgIC AgICAgICAgICAgICAgICA gICAgICAgICAg ICAgICAgICAgICAgICAgI CAgICAgICAgICAgICAgIC AgICAgICAgICAgICAgICA gICAgICAgICAg ICAgICAgICAgICAgICAgI CAgICAgICAgICAgICAgIC AgICAgICAgICAgICAgICA gICAgICAgICAg ICAgICAgICAgICAgICAgI CAgICAgICAgICAgICAgIC AgICAgICAgICAgICAgICA gICAgICAgICAg ICAgICAgICAgICAgICAgI CAgICAgICAgICAgICAgIC AgICAgICAgICAgICAgICA gICAgICAgICAg ICAgICAgICAgICAgICAgI CAgICAgICAgICAgICAgIC AgICAgICAgICAgICAgICA gICAgICAgICAg ICAgICAgICAgICAgICAgI CAgICAgICAgICAgICAgIC AgICAgICAgICAgICAgICA gICAgICAgICAg LZ2Zi7EnmcP4vgFdGAjfU JglGHMXPv8WGRcsArBrIU 3zxr1VGKhUR96liSYcMMB hIDIxIDAgUgov V1NmxvQouVsdstBrPjLuL ZSMOr5VuNIJOPkzS8R8vP ddWIUiGHjtWEGYIb7QEMm zVR7fOURlHSLl Kw5kVJkdCCTeEYHfSbXeA RNKJs3YeTXbUY4NMJTcoV 9nCj4+DQplbmRvYmoNCg0 KMjQgMCBvYmoN Gna5Xa9IjTl7FQRzC7QxG PHsTMIcm5SxXz2YIY1ouX vrNKI3Qb6SLUu4Vi2+DQp dtOEbKI2YXakt R1DaVHUoGZFwWLMyUVsLz XCgAIUpQLYQVIyLgXHaDQ jzpTYDMsAQZzMCEmJQzMC xLnH5XQqQP4Z0 SIsBHgMwd3D7UWuFIZARK dVlEEgFdKsB3nZQuWwYxg V70CX0uYdNLFNiUIGI3CR chEiI9MeFTa2A 3S8OKE9kv4FbXDNsRFhii qFePifBEk2TNlIjTZXwLq wEPzq6Vv1Bo795NE38zbO bNDIgMCBSXQov WHSmpIFRp5nvVtMtERC8T ZOcOcdbTRmvLHZtRC33UH LxNBUhJjjkNhBhi2ByM0V hZYv8Sr7YI5Ya OJH4EAu0Uo8OTJIxHkXaN dQbPZXZMa8KUc3ZD9G8dL QeD2MbR7TEOc9LJwLsTO2 isu6CICzmIzGh MK4dvy9IGZwOC8DJw4sgP lOvPZJ9CTAeJmgiLNktRg zdiIBrVL4BnOY3KZPuR11 hHRjpRWWpM1Nn NJd4Mf5VGBNngUJoJZNnX FiVA4gYStxbE2XqXPpPN0 qmSiV4ZQPlEMPdRyy+Pgo +GuvtD3SecZqx ROIfKu2mnQxmYGpoSZMgV W2fggOqeOv+Kq3Tw8TeHA PvULf2wHMF3UAm4VEmHQL pOQI5FXEyrsHQ REka4PuAdHNiKiFrpJAzZ 4nlNESr47mQRHZdDkxCb3 goOhGv7PwAKL+UR8JJiaL uNkWusd8OJUjp lxEbsFCmFC3ICxWsDR5hm h2WQPmsXjUjAL7ywf4BNF hNV6NIHT5Me8DwQNyZW1U LFKYTM8nZXVSU P1jEFSNAR2vTGTCTZ30CP CABA0RWDFFdaTXHW7OeEP UPWb8XAbGbWW3spo0FVXl nDFAvGG6lvm1J MTcRE7OXRZ7Wl7DqEXhSH 3KxMGVCMd3MSaFwIX9whk 7KJAwxRJZuFN8izd8ZGIp WZ1XERH2Tr4Ai SKmMM5XHIHXHJ3zTMUQUR 6eOJZUFT4yNJMEML97HOQ VIN9ZTXNNhaLBSE7FmPMT NJz5LJqBqYB7s lv3ODGbqIXTwXG1qsh4YW MmOJ0Iri9DCg477VI9AJu gRDE9xS789rsdqhi5yi3X TLUJvbGRNVAov HSIbN6ImVDQovIVnuuLdF YhhSOMeTWZaBj0PbmYnPU luZyAvSWRlbnRpdHktSAo bP4YrsTuqLZPh MMjbQMFYV9AbMM6cO85hO MVyLzWzRMPZC0N6zSDcY0 WsslCVUb8LLxHhDR7pxu8 OQVjiMPQhLL6e iu9BXArQV2Fkn5ZAe709O U7GCcuZJG7aR197ygjlwb 6uv5KKZJMwyDVEFJzxM2j NE4sydHImCL2d pyI6DZdtF5NbDEFbrwzyQ TaxVB96rTZ8DAghIrUehV C0ljxoOEHgc2IrUUewA8E wcGxlbWVudCAw Cj4+Uf5BKSOUz8sNKO5st ZMtOKWwbeZdgAsPZ0TOMK YOJ5FdsnPSNPFwqtbywH8 yIDMyIDAgUgov W8MwoAkgEHPiZ9kIZf2mp FD3fFZnNd5DxEHvOH1At9 11Jk9TXCbhFNtxFALuXJ0 oISi2Sg0PSr0Z EpToZI0ads5TLXqfRzEoD H8pyw6MZWnZH7SqS9DkgX C1WsBuTXM6RKYWZ9ObvVl wgUhflUL3WGHp Jwb7TJdBL2Ooc3OcsgRdF dXqEuT9Kuw1Jl8CtIDkou HxMEkdNt8qpGWQj7tdLv7 fYLFgFOy1ZHVc KFajTJ06BPftCeJ2KWJxM nZeTJQjLORrRI6dAFK4BJ 0ZF3XvanBWyJzfOvL3IIS iWPZDT3NorjCU FC2oFN5EYohFZZ0oA090n dhoru1od4XYGWGylPWYDJ aeLXAehYkaUB1lwHXpKRe sP4YnkUBqHrXq PPybNVvCC8B3hHZrA5Mkl oJDCUQeihautO4bJw0+DQ tqhuCmAiaSWd8KAzOyJXS gHwjIHyv9Bg6L iIz2NHNjI5HfIEAhUJIdi 9IaVa3YLN3suWypLnU9Rh 4+YEydvNTbAE3EKvqtUDV ZktYfIZk4X0rA TvAOHYuURPslqlBxJ8TkP 3h3uUqVuRqc0K4szsPPho oxF1sst58G7E7+yAix5XJ OdsLEg7U5b6e1 hUC6ZLvjYXa9UvrjHd5k4 BxLoridpwBDY/uRlSXnyV sOHuJIyYQT4msjISOtBZc vk3m7nJlB93us vzCADVywquIa+ok91ep0l tNlrDip0Wd9CD0FgLUut8 tMNmCHhtQmsbb8Pwubk8V OROjBi8LhEIOs /2FoHv363bH5qN4wgdXPW Fs2jAGOOlWEkMoi0m7dGr EmTW1GwP4lRcPE4s1VkvF Qz5m35rBMJ4Ci RvIayawgcodHIYmkChnJi xckc/BjXZ6sg0ZdPEI+y+ vIaEZoIpya4KhaEg6BjaJ X31yQQSeN70/A zM4HVg7fxnvcAw6WAF0vq 3RyZWFtDQplbmRvYmoNCg 1JFkTbDXIjSpiYJog2Ve9 CCQJrHb9tdOTd EzbNFPpQM7UuiTUyKOFPL KoMO96TLj4BNVVtQJ2gUG 42To2ruUZlEaN2XYEwSa5 OK5PvI66fvK6r DB6QGHXymSt3vY2XPn3Da ID9pCEiQP8RgYDbRQsdGS 7Ouxbsp7JsWNZ9 (more content not included)... Normal [facility] FT Blood GasesOrdered By: Ra raciel Marx on 08-09-2022 a/A Ratio Art 75.90 % Normal >=0.80% [facility] Resp Auto SS AaDO2 Art 21.9 mm[Hg] High 5.0 - 15.0 mmHg FT Resp Auto SS Allens Test Not Applicable (08/09/22 2:03 PM) Normal [facility] Resp Auto SS Base Excess Arterial 3.1 [...] [facility] [place] Resp Auto SS manager of financial+ Art 142.0 mmol/L Normal 135.0 - 145.0 [...] Coag (PPP) [Time] 31.4 second(s) Normal 25.1-36.5 [facility] Comment on above: Result Comment: [...] - 109.0 sec. Performed By: #### 2 [id number], 5079278, 83937855, 0578161, 94788773, [id number], [id number] ####[address] [place] [address] INR Coag (PPP) [Relative time] 0.9 {INR} Invalid Interpretation Code [facility] Comment on above: Result Comment: INR results are specifically intended to assess patients stabilized on long-term Anticoagulation therapy suggested INR?s ?Less Intensive Anticoagulation? 2.0 ? 3.0 Conventional Range 3.0 ? 4.5 Performed By: #### 2 753690, 1847299, 55716235, 9753916, 32261978, 69024509, [id number] ####[facility] [address] [place] [address] PT Coag (PPP) [Time] 10.3 second(s) Normal 9.4-12.5 [facility] Comment on above: Result Comment: [...] no normal ranges. Performed By: #### 2 646755, 4794610, 67238751, 8131394, 63725623, 58302322, [id number] ####[facility] [address] [place] [address] Pre-Arrival Noteon Pre-Arrival Note Pre-Arrival Summary Name: , Current Date: 08/09/2022 13:09:29 EDT Gender: Female Date of : Age: 62 Pre-Arrival Type: EMS ETA: 08/09/2022 13:33:00 EDT Primary Care Physician: Presenting Problem: sob Pre-Arrival User: John Martin Referring Source: Location: [place] Completion Date/Time: 08/09/2022 13:03:00 [facility] Emergency Department Pre-Hospital Report Form Vital Signs: Pre-Hospital Report: Treatment in Route: Response to Treatment: Misc. Issues: Normal [facility] Troponin 0 Hr.on 08-09-2022 Troponin I.cardiac [Mass/Vol] 4.00 pg/mL Low 10.10-27.10 [facility] Comment on above: Result Comment: The 95% CI (Confidence Interval) PPV (Positive Predictive Value) for myocardial infarction in females is 38 pg/mL, in males 51 pg/mL. The results should be used in conjunction with clinical conditions of myocardial infarction. ([place] High Sensitivity Troponin I Instructions For Use, [place], December 2017) Performed By: #### 2 603176, 6951800, 26299277, 9772102, 89795647, 78997985, [id number] ####[facility] [address] [place] [address] Troponin 3 Hr.on 08-09-2022 Troponin I.cardiac [Mass/Vol] 7.00 pg/mL Low 10.10-27.10 [facility] Comment on above: Result Comment: The 95% CI (Confidence Interval) PPV (Positive Predictive Value) for myocardial infarction in females is 38 pg/mL, in males 51 pg/mL. The results should be used in conjunction with clinical conditions of myocardial infarction. ([place] High Sensitivity Troponin I Instructions For Use, [place], December 2017) Performed By: #### 1 [id number] ####[address] [place] [address] XR Chest Single Viewon 08-09 XR Chest [...] mGy = na DAP = na Normal [facility] eGFRon 08-09-2022 GFR/1.73 sq M.predicted among blacks MDRD (S/P/Bld) [Vol rate/Area] mL/min/{1.73_m2} Normal >=59 [facility] Comment on above: Order Comment: Order added by Discern Expert. Result Comment: eGFR is race adjusted. AA=. Performed By: #### 2 205725, 3568196, 27840927, 1751264, 76355218, 55165260, 04676840 ####[facility] [address] [place] [address] GFR/1.73 sq M.predicted among non-blacks MDRD (S/P/Bld) [Vol rate/Area] 50 mL/min/1.73 m2 Low >=59 [facility] Comment on above: Order Comment: Order added by Discern Expert. Result Comment: Commanding Officer [employer] valeria kidney disease could be indicated at eGFR's of less than 60 mL/min/1.73m2. Kidney failure is indicated at less than 15 mL/min/1.73m2. Performed By: #### 2 023739, 3467957, 76385093, 1599248, 03851751, 81491188, 53950957 ####[facility] [address] [place] [address] CBC W MANUAL DIFFon 08-02-19 ATYPICAL LYMPH # Normal [facility] Comment on above: Performed By: #### Isabell PONCE ####[facility] [address] [place] [id number] Yañez ATYPICAL LYMPH % Normal [facility] Comment on above: Performed By: #### Isabell PONCE ####[facility] [address] [place] [id number]. Nahed Yañez BAND # 0.9 103/ul Critically high 0.0-0.3 [facility] Comment on above: Performed By: #### C BCMAN ####[facility] [address] [place] [address]Dr. Nahed Yañez BAND % 5 % Normal 0-5 [facility] Comment on above: Performed By: #### C BCMAN ####[facility] [address] [place] [address]Dr. Yiaslhey Yañez BASOM # 0.00 103/ul Normal 0.00-0.10 [facility] Comment on above: Performed By: #### C BCISAIAH ####[facility] [address] [place] [address]Dr. Nahed Yañez BASOM % 0.0 % Critically low 0.2-2.0 [facility] Comment on above: Performed By: #### C BCISAIAH ####[facility] [address] [place] [address]Dr. Nahed Yañez BLAST # Normal [facility] Comment on above: Performed By: #### C BCISAIAH ####[facility] [address] [place] [address]Dr. Yilan Yñaez BLAST % Normal [facility] Comment on above: Performed By: #### C BCISAIAH ####[facility] [address] [place] [address]Dr. Nahed Yañez CORRECTED WBC Normal 4.0-11.[address] [facility] Comment on above: Performed By: #### C BCMAN ####[facility] [address] [place] [address]Dr. Naehd Yañez EOS # 0.00 103/ul Normal 0.00-0.70 [facility] Comment on above: Performed By: #### C BCMAN ####[facility] [address] [place] [address]Dr. Nahed Yañez EOS% 0.0 % Critically low 0.9-7.0 [facility] Comment on above: Performed By: #### C BCISAIAH ####[facility] [address] [place], [place] [address]Um. Nahed Yañez HCT 39.5 % Normal 36.0-48.0 [facility] Comment on above: Performed By: #### C ROSARIO ####[facility] [address] [place] [id number]. Nahed Yañez HGB 13.0 g/dl Normal 12.0-16.0 [facility] Comment on above: Performed By: #### C ROSARIO ####[facility] [address] [place] [id number]. Nahed Yañez LYMPHM # 1.72 103/ul Normal 1.20-3.80 [facility] Comment on above: Performed By: #### C ROSARIO ####[facility] [address] [place] [address]Dr. Nahed Yañez LYMPHM% 10.0 % Critically low 20.5-60.0 [facility] Comment on above: Performed By: #### Isabell PONCE ####[facility] [address] [place] [address]Dr. Nahed Yañez MCH 28.7 pg Normal 26.7-34.0 [facility] Comment on above: Performed By: #### Isabell PONCE ####[facility] [address] [place] [id number]. Nahed Yañez MCHC 32.9 g/dl Normal 29.9-35.2 [facility] Comment on above: Performed By: #### C ROSARIO ####[facility] [address] [place] [id number]. Nahed Yañez MCV 87.2 fL Normal 81.0-99.0 [facility] Comment on above: Performed By: #### C ROSARIO ####[facility] [address] [place] [phone]. Nahed Yañez METAMYELOCYTE # Normal [facility] Comment on above: Performed By: #### C ROSARIO ####[facility] [address] [place] [id number]. Nahed Yañez METAMYELOCYTE % Normal [facility] Comment on above: Performed By: #### C ROSARIO ####[facility] [address] [place], [place] [address]Sl. Nahed Yañez MONOM# 0.86 103/ul Critically high 0.30-0.80 [facility] Comment on above: Performed By: #### C ROSARIO ####[facility] [address] [place], [place] [address]Mz. Nahed Yañez MONOM% 5.0 % Normal 1.7-12.0 [facility] Comment on above: Performed By: #### C ROSARIO ####[facility] [address] [place], [place] [address]Fw. Nahed Yañez MPV 9.8 fL Normal 9.5-13.5 [facility] Comment on above: Performed By: #### C ROSARIO ####[facility] [address] [place] [phone]. Nahed Yañez MYELOCYTE # Normal [facility] Comment on above: Performed By: #### C ROSARIO ####[facility] [address] [place], [place] [address]Xm. Nahed Yañez MYELOCYTE % Normal [facility] Comment on above: Performed By: #### C ROSARIO ####[facility] [address] [place], [place] [address]Jx. Nahed Yañez NRBC Normal [facility] Comment on above: Performed By: #### C ROSARIO ####[facility] [address] [place] [phone]. Nahed Yañez PLT 388 103/ul Normal 150-450 [facility] Comment on above: Performed By: #### C ROSARIO ####[facility] [address] [place] [id number]. Nahed Yañez RBC 4.53 106/ul Normal 4.20-5.40 [facility] Comment on above: Performed By: #### C ROSARIO ####[facility] [address] [place] [phone]. Rosemarieashley Otilio RDW 14.4 % Normal 11.0-15.0 [facility] Comment on above: Performed By: #### C BCMAN ####[facility] [address] [place] [address]Dr. Nahed Yañez SEG # 13.76 103/ul Critically high 1.40-6.50 [facility] Comment on above: Performed By: #### C BCMAN ####[facility] [address] [place] [address]Dr. Nahed Yañez SEG % 80.0 % Critically high 43.0-75.0 [facility] Comment on above: Performed By: #### C ROSARIO ####[facility] [address] [place] [address]Dr. Nahed Yañez WBC 17.2 103/ul Critically high 4.0-11.0 [facility] Comment on above: Performed By: #### C ROSARIO ####[facility] [address] [place] [address]Dr. Nahed Yañez MAGNESIUMon 08-01-2022 Magnesium [Mass/Vol] 2.0 mg/dL Normal 1.8-2.4 [facility] Comment on above: Performed By: #### MG COLE, CMP ####[facility] [address] [place] [address]DrShaun Rosemarieashley Yañez POINT OF CARE GLUCOSEon 07-13 Glucose [Mass/Vol] 267 mg/dL Critically high 74-106 [facility] Comment on above: Performed By: #### P OCGLUC ####[facility] [address] [place] [address]DrShaun Yañez PROF 14(COMP METB)on 023 Albumin [Mass/Vol] 3.4 g/dL Normal 3.4-5.0 [facility] Comment on above: Performed By: #### MG COLE, CMP ####[facility] [address] [place] [address]Dr. Nahed Yañez Albumin/Globulin [Mass ratio] 0.9 {ratio} Normal [facility] Comment on above: Performed By: #### MG COLE, CMP ####[facility] [address] [place] [id number]. Nahed Yañez ALP [Catalytic activity/Vol] 100 U/L Normal 46-116 [facility] Comment on above: Performed By: #### MG COLE, CMP ####[facility] [address] [place] [address]Dr. Nahed Yañez ALT [Catalytic activity/Vol] 19 U/L Normal 14-59 [facility] Comment on above: Performed By: #### MG COLE, CMP ####[facility] [address] [place] [address]Dr. Nahed Yañez Anion gap [Moles/Vol] 12.7 mmol/L Normal [facility] Comment on above: Performed By: #### MG COLE, CMP ####[facility] [address] [place] [address]Dr. Nahed Yañez AST [Catalytic activity/Vol] 13 U/L Critically low 15-37 [facility] Comment on above: Performed By: #### MG COLE, CMP ####[facility] [address] [place] [address]Dr. Nahed Yañez Bilirubin [Mass/Vol] 0.4 mg/dL Normal 0.2-1.0 [facility] Comment on above: Performed By: #### MG COLE, CMP ####[facility] [address] [place] [address]Dr. Nahed Yañez Calcium [Mass/Vol] 9.5 mg/dL Normal 8.5-10.1 [facility] Comment on above: Performed By: #### MG COLE, CMP ####[facility] [address] [place] [address]Dr. Nahed Yañez Chloride [Moles/Vol] 100 mmol/L Normal 98-107 [facility] Comment on above: Performed By: #### MG COLE, CMP ####[facility] [address] [place] [address]Dr. Rosemarieashley Yañez CO2 [Moles/Vol] 27.1 mmol/L Normal 21.0-32.0 [facility] Comment on above: Performed By: #### MG COLE, CMP ####[facility] [address] [place] [address]Dr. Nahed Yañez Creatinine [Mass/Vol] 1.16 mg/dL Critically high 0.55-1.02 [facility] Comment on above: Performed By: #### MG COLE, CMP ####[facility] [address] [place], [place] [address]Dr. Nahed Yañez EGFR-AF GREEK 58 mL/min/1.73m2 Critically low >=60 [facility] Comment on above: Performed By: #### MG COLE, CMP ####[facility] [address] [place], [place] [address]Dr. Nahed Yañez EGFR-NON AF GREEK 47 mL/min/1.73m2 Critically low >=60 [facility] Comment on above: Performed By: #### MG COLE, CMP ####[facility] [address] [place], [place] [address]Dr. Nahed Yañez Globulin (S) [Mass/Vol] 3.6 g/dL Normal [facility] Comment on above: Performed By: #### MG COLE, CMP ####[facility] [address] [place] [address]Dr. Rosemarieashley Yañez Glucose [Mass/Vol] 175 mg/dL Critically high 74-106 [facility] Comment on above: Performed By: #### MG COLE, CMP ####[facility] [address] [place], [place] [address]Dr. Nahed Yañez Potassium [Moles/Vol] 3.8 mmol/L Normal 3.5-5.1 [facility] Comment on above: Performed By: #### MG COLE, CMP ####[facility] [address] [place] [address]Dr. Nahed Yañez Protein [Mass/Vol] 7.0 g/dL Normal 6.4-8.2 [facility] Comment on above: Performed By: #### MG COLE, CMP ####[facility] [id number] [place], [place] [address]Dr. Nahed Yañez Sodium [Moles/Vol] 136 mmol/L Normal 136-145 [facility] Comment on above: Performed By: #### MG COLE, CMP ####[facility] [address] [place], [place] [address]Dr. Nahed Yañez Urea nitrogen [Mass/Vol] 25.0 mg/dL Critically high 7.0-18.0 [facility] Comment on above: Performed By: #### MG COLE, CMP ####[facility] [address] [place], [place] [address]Dr. Nahed Yañez Urea nitrogen/Creatinine [Mass ratio] 21.6 mg/mg Normal [facility] Comment on above: Performed By: #### MG COLE, CMP ####[facility] [address] [place], [place] [address]Dr. Nahed Yañez THEOPHYLLINEon 08-01-2022 THEOPHYLLINE 17.1 ug/mL Normal 10.0-20.0 [facility] Comment on above: Performed By: #### MG COLE, CMP ####[facility] [address] [place], [place] [address]Dr. Nahed Yañez CBC AUTO DIFFon 07-31-2022 BASO # 0.0 103/ul Normal 0.0-0.1 [facility] Comment on above: Performed By: #### C BC ####[facility] [address] [place], [place] [address]Dr. Nahed Yañez Basophils/100 WBC (Bld) 0.2 % Normal 0.2-2.0 [facility] Comment on above: Performed By: #### C BC ####[facility] [address] [place], [place] [address]Dr. Nahed Yañez EO # 0.0 103/ul Normal 0.0-0.7 [facility] Comment on above: Performed By: #### C BC ####[facility] [address] [place], [place] [address]Dr. Nahed Yañez Eosinophils/100 WBC (Bld) 0.0 % Critically low 0.9-7.0 [facility] Comment on above: Performed By: #### C BC ####[facility] [address] [place] [address]Dr. Nahed Yañez Erythrocyte distribution width (RBC) [Ratio] 14.2 % Normal 11.0-15.0 [facility] Comment on above: Performed By: #### C BC ####[facility] Ptqepgnwzn[address] [place], [place] [address]Dr. Nahed Yañez Hematocrit (Bld) [Volume fraction] 36.0 % Normal 36.0-48.0 [facility] Comment on above: Performed By: #### C BC ####[facility] Fbtxuwscnc[address] [place], [place] [address]Dr. Nahed Yañez Hemoglobin (Bld) [Mass/Vol] 11.4 g/dL Critically low 12.0-16.0 [facility] Comment on above: Performed By: #### C BC ####[facility] J[address]chkj[address]fq[address] [place], [place] [address]Dr. Nahed Yañez IG # 0.21 10e3/ul Critically high 0.00-0.03 [facility] Comment on above: Performed By: #### C BC ####[facility] Zphuksmrzf8[address] [place], [place] [address]Dr. Nahed Yañez IG % 1.8 % Critically high 0.0-0.5 [facility] Comment on above: Performed By: #### C BC ####[facility] Ekmczwrcax69[address] [place], [place] [address]Dr. Nahed Yañez LYMPH # 1.3 103/ul Normal 1.2-3.8 [facility] Comment on above: Performed By: #### C BC ####[facility] Fkvjpxdxtr87[address] [place], [place] [address]Dr. Nahed Yañez Lymphocytes/100 WBC (Bld) 11.2 % Critically low 20.5-60.0 [facility] Comment on above: Performed By: #### C BC ####[facility] Okmbbsjtym[address] [place], [place] [address]Dr. Nahed Otilio MANUAL DIFF REQ NO Normal [facility] Comment on above: Performed By: #### C BC ####[facility] [address] [place] [address]Dr. Nahed Yañez MCH (RBC) [Entitic mass] 27.7 pg Normal 26.7-34.0 [facility] Comment on above: Performed By: #### C BC ####[facility] [address]ts[address] [place] [address]Dr. Nahed Yañez MCHC (RBC) [Mass/Vol] 31.7 g/dL Normal 29.9-35.2 [facility] Comment on above: Performed By: #### C BC ####[facility] Odwkphfdgw[address] [place] [address]Dr. Nahed Otilio MCV (RBC) [Entitic vol] 87.6 fL Normal 81.0-99.0 [facility] Comment on above: Performed By: #### C BC ####[facility] Pwtompmylc[address] [place], [place] [address]Dr. Nahed Otilio MONO # 0.8 103/ul Normal 0.3-0.8 [facility] Comment on above: Performed By: #### C BC ####[facility] Tczhgrjimu[address] [place], [place] [address]Dr. Rosemarieashley Yañez Monocytes/100 WBC (Bld) 7.0 % Normal 1.7-12.0 [facility] Comment on above: Performed By: #### C BC ####[facility] Gtubetjxad[address] [place], [place] [address]Dr. Rosemarieashley Otilio NEUT # 9.2 103/ul Critically high 1.4-6.5 [facility] Comment on above: Performed By: #### C BC ####[facility] Xsjijzwbja8[address] [place], [place] [address]Dr. Rosemarieashley Yañez Neutrophils/100 WBC (Bld) 79.8 % Critically high 43.0-75.0 [facility] Comment on above: Performed By: #### C BC ####[facility] [address] [place] [address]. Nahed Yañez Platelet mean volume (Bld) [Entitic vol] 9.8 fL Normal 9.5-13.5 [facility] Comment on above: Performed By: #### C BC ####[facility] [address]yndt[address] [place] [address]Dr. Nahed Yañez PLT 317 103/ul Normal 150-450 [facility] Comment on above: Performed By: #### C BC ####[facility] Ghiwfdxhrk[address] [place] [address]Dr. Nahed Yañez RBC 4.11 106/ul Critically low 4.20-5.40 [facility] Comment on above: Performed By: #### C BC ####[facility] Lcxgzahsbc[address] [place] [address]Dr. Nahed Yañez WBC 11.5 103/ul Critically high 4.0-11.0 [facility] Comment on above: Performed By: #### C BC ####[facility] Ahy[address]soor[address] [place] [address]Dr. Nahed Yañez MAGNESIUMon 07-31-2022 Magnesium [Mass/Vol] 1.8 mg/dL Normal 1.8-2.4 [facility] Comment on above: Performed By: #### M JUDY Moore, [facility] ####[facility] Hcimoksfax[address] [place] [address]Dr. Nahed Yañez POINT OF CARE GLUCOSEon 07-13 Glucose [Mass/Vol] 217 mg/dL Critically high 74-106 [facility] Comment on above: Performed By: #### P OCGLUC ####[facility] Iql[address]qqtpv[address] [place] [address]Dr. Nahed Yañez Glucose [Mass/Vol] 169 mg/dL Critically high 74-106 [facility] Comment on above: Performed By: #### P OCGLUC ####[facility] Ipnxbakxab8[address] [place] [address]Dr. Nahed Yañez Glucose [Mass/Vol] 297 mg/dL Critically high 74-106 [facility] Comment on above: Performed By: #### P OCGLUC ####[facility] Odjmlkrobp99[address] [place] [address]Dr. Nahed Yañez Glucose [Mass/Vol] 233 mg/dL Critically high 74-106 [facility] Comment on above: Performed By: #### P OCGLUC ####[facility] Nkngemnpbv36[address] [place] [address]Dr. Nahed Yañez PROF 14(COMP METB)on 023 Albumin [Mass/Vol] 3.0 g/dL Critically low 3.4-5.0 [facility] Comment on above: Performed By: #### JUDY Castro, CMP ####[facility] Gggsegxpak[address] [place] [address]Dr. Nahed Yañez Albumin/Globulin [Mass ratio] 0.8 {ratio} Normal [facility] Comment on above: Performed By: #### JUDY Castro, CMP ####[facility] Nxfezcliqu[address] [place], [place] [address]Dr. Nahed Yañez ALP [Catalytic activity/Vol] 83 U/L Normal 46-116 [facility] Comment on above: Performed By: #### JUDY Castro, CMP ####[facility] Kfxgyumsnv[address] [place] [address]Dr. Nahed Yañez ALT [Catalytic activity/Vol] 21 U/L Normal 14-59 [facility] Comment on above: Performed By: #### JUDY Castro, CMP ####[facility] Jurmnwinze[address] [place] [address]Dr. Nahed Yañez Anion gap [Moles/Vol] 14.8 mmol/L Normal [facility] Comment on above: Performed By: #### JUDY Castro, CMP ####[facility] Lqwqlguutv94[address] [place] [address]Dr. Nahed Yañez AST [Catalytic activity/Vol] 13 U/L Critically low 15-37 [facility] Comment on above: Performed By: #### JUDY Castro, CMP ####[facility] Diojphhxhe[address] [place] [address]Dr. Nahed Yañez Bilirubin [Mass/Vol] 0.2 mg/dL Normal 0.2-1.0 [facility] Comment on above: Performed By: #### JUDY Castro CMP ####[facility] Whrokvrxxt[address] [place], [place] [address]Dr. Nahed Yañez Calcium [Mass/Vol] 9.2 mg/dL Normal 8.5-10.1 [facility] Comment on above: Performed By: #### JUDY Castro, CMP ####[facility] Woolidselt[address] [place], [place] [address]Dr. Nahed Yañez Chloride [Moles/Vol] 101 mmol/L Normal 98-107 [facility] Comment on above: Performed By: #### JUDY Castro CMP ####[facility] Bzaizdgvbw25[address] [place], [place] [address]Dr. Nahed Yañez CO2 [Moles/Vol] 26.5 mmol/L Normal 21.0-32.0 [facility] Comment on above: Performed By: #### JUDY Castro, CMP ####[facility] Ybkxqqtvep[address] [place], [place] [address]Dr. Nahed Yañez Creatinine [Mass/Vol] 1.04 mg/dL Critically high 0.55-1.02 [facility] Comment on above: Performed By: #### JUDY Castro CMP ####[facility] Mkglzmcuka[address] [place], [place] [address]Dr. Nahed Yañez EGFR-AF GREEK >60 Normal >=60 [facility] Comment on above: Performed By: #### JUDY Castro CMP ####[facility] Mvrlqwlbmn[address] [place], [place] [address]Dr. Nahed Yañez EGFR-NON AF GREEK 54 mL/min/1.73m2 Critically low >=60 [facility] Comment on above: Performed By: #### JUDY Castro CMP ####[facility] Vnavhnfdot[address] [place], [place] [address]Dr. Nahed Yañez Globulin (S) [Mass/Vol] 3.6 g/dL Normal [facility] Comment on above: Performed By: #### JUDY Castro, CMP ####[facility] J[address]ikauogp[address] [place] [address]Dr. Nahed Yañez Glucose [Mass/Vol] 171 mg/dL Critically high 74-106 [facility] Comment on above: Performed By: #### JUDY Castro, CMP ####[facility] Zrmbfcpfpj[address] [place] [address]Dr. Nahed Yañez Potassium [Moles/Vol] 3.3 mmol/L Critically low 3.5-5.1 [facility] Comment on above: Performed By: #### JUDY Castro CMP ####[facility] Qnwtzcquyq60[address] [place] [address]Dr. Nahed Yañez Protein [Mass/Vol] 6.6 g/dL Normal 6.4-8.2 [facility] Comment on above: Performed By: #### JUDY Castro CMP ####[facility] Pbzzmrxibu1035[address] [place], [place] [address]Dr. Nahed Yañez Sodium [Moles/Vol] 139 mmol/L Normal 136-145 [facility] Comment on above: Performed By: #### JUDY Castro CMP ####[facility] Hpwjjbpwcp[address] [place], [place] [address]Dr. Nahed Yañez Urea nitrogen [Mass/Vol] 23.0 mg/dL Critically high 7.0-18.0 [facility] Comment on above: Performed By: #### JUDY Castro CMP ####[facility] Eharhqjxxv[address] [place], [place] [address]Dr. Nahed Yañez Urea nitrogen/Creatinine [Mass ratio] 22.1 mg/mg Normal [facility] Comment on above: Performed By: #### JUDY Castro, CMP ####[facility] Spwwcindfu6[address] [place], [place] [address]Dr. Nahed Yañez THEOPHYLLINEon 07-31-2022 THEOPHYLLINE 14.2 ug/mL Normal 10.0-20.0 [facility] Comment on above: Performed By: #### JUDY Castro, CMP ####[facility] Dgkejhidwd0526[address] [place], [place] [address]Dr. Nahed Yañez BLOOD CULTURE ID PANELon A. baumannii Not detected Normal NOT DETECTED [facility] Comment on above: Performed By: #### B CID2 ####[facility] Gkwpfvbwfu[address] [place] [address]Dr. Nahed Yañez Bacteriodes fragilis Not detected Normal NOT DETECTED [facility] Comment on above: Performed By: #### B CID2 ####[facility] Yuqedzxric[address] [place] [address]Dr. Nahed Yañez BCID CONTROLS PASSED Normal [facility] Comment on above: Performed By: #### B CID2 ####[facility] Ldhqavhdwc15[address] [place] [address]Dr. Nahed Yañez BCIDBTHD BLOOD CULTURE BOTTLE INFORMATION Normal [facility] Comment on above: Performed By: #### B CID2 ####[facility] Xolipsanqm[address] [place], [place] [address]Dr. Nahed Yañez BCIDHD1 ANTIMICROBIAL RESISTANCE GENES [facility] Comment on above: Performed By: #### B CID2 ####[facility] Wlscnbglnd[address] [place], [place] [address]Dr. Nahed Yañez BCIDHD2 SEE BELOW [place] [facility] Comment on above: Result Comment: Note : Antimicrobial resitance can occur via multiple mechanisms. A Not Detected result for the [employer] antomicrobial resistance gene assays does not indicate antimicrobial susceptibility. Subculturing is required for species identification and susceptibility testing of isolates. Performed By: #### B CID2 ####[facility] Ultuanvmlt[address] [place], [place] [address]Dr. Nahed Yañez BCIDHD3 Positive Normal [facility] Comment on above: Performed By: #### B CID2 ####[facility] Spewecsskp[address] [place] [address]Dr. Nahed Yañez BCIDHD4 Negative [place] [facility] Comment on above: Performed By: #### B CID2 ####[facility] Gpmsgkxzvj[address] [place] [address]Dr. Nahed Yañez BCIDHD5 YEAST Normal [facility] Comment on above: Performed By: #### B CID2 ####[facility] Gkkzvvcvyq0806 [place] [address]Dr. Nahed Yañez Bottle Set: Set 2 Normal [facility] Comment on above: Performed By: #### B CID2 ####[facility] Ljujdwsuko9233 [place] [address]Dr. Nahed Yañez Bottle: Pediatric Normal [facility] Comment on above: Performed By: #### B CID2 ####[facility] Dnckwbkkht6120 [place] [address]Dr. Nahed Yañez C. neoformans/gattii Not detected Normal NOT DETECTED [facility] Comment on above: Performed By: #### B CID2 ####[facility] Dvnnbokjwk[address] [place], [place] [address]Dr. Nahed Yañez Sil albicans Not detected Normal NOT DETECTED [facility] Comment on above: Performed By: #### B CID2 ####[facility] Qfpaftiisp[address] [place], [place] [address]Dr. Nahed Yañez Sil auris Not detected Normal NOT DETECTED [facility] Comment on above: Performed By: #### B CID2 ####[facility] Wrxoicbeij6[address] [place], [place] [address]Dr. Nahed Yañez Sil glabrata Not detected Normal NOT DETECTED [facility] Comment on above: Performed By: #### B CID2 ####[facility] Pqwfoviewp9399 [place] [address]Dr. Nahed Yañez Sil Krusei Not detected Normal NOT DETECTED [facility] Comment on above: Performed By: #### B CID2 ####[facility] Qvazkdkoft1841 [place] [address]Dr. Nahed Yañez Sil Parapsilosis Not detected Normal NOT DETECTED [facility] Comment on above: Performed By: #### B CID2 ####[facility] Vjmdvzwrdk[address] [place], [place] [address]Dr. Nahed Yañez Sil Tropicalis Not detected Normal NOT DETECTED [facility] Comment on above: Performed By: #### B CID2 ####[facility] Dbbqgvewuv9545[address] [place], [place] [address]Dr. Nahed Yañez CTX-M Resistant Gene Not Applicable Normal NOT DETECTE D [facility] Comment on above: Performed By: #### B CID2 ####[facility] Ruvgcpbvrv3824[address] [place], [place] [address]Dr. Nahed Otilio E. Cloacae complex Not detected Normal NOT DETECTED [facility] Comment on above: Performed By: #### B CID2 ####[facility] Dyvyfqawqz4859[address] [place], [place] [address]Dr. Nahed Yañez E. faecalis Not detected Normal NOT DETECTED [facility] Comment on above: Performed By: #### B CID2 ####[facility] Ppmsnliyck54[address] [place], [place] [address]Dr. Nahed Yañez E. faecium Not detected Normal NOT DETECTED [facility] Comment on above: Performed By: #### B CID2 ####[facility] Zgawqjhsuy2525[address] [place], [place] [address]Dr. Nahed Yañez Enterobacteriaceae Not detected Normal NOT DETECTED [facility] Comment on above: Performed By: #### B CID2 ####[facility] Nxlihzakms0164[address] [place], [place] [address]Dr. Nahed Yañez Escherichia coli Not detected Normal NOT DETECTED [facility] Comment on above: Performed By: #### B CID2 ####[facility] Icouojdnrh2960[address] [place], [place] [address]Dr. Nahed Yañez H. influenzae Not detected Normal NOT DETECTED [facility] Comment on above: Performed By: #### B CID2 ####[facility] Gcgbbsauer4823[address] [place], [place] [address]Dr. Nahed Yañez IMP Resistant Gene Not Applicable Normal NOT DETECTED [facility] Comment on above: Performed By: #### B CID2 ####[facility] Vzmjomprar0317[address] [place], [place] [address]Dr. Nahed Yañez K. oxytoca Not detected Normal NOT DETECTED [facility] Comment on above: Performed By: #### B CID2 ####[facility] Aattsgcgwa6675[address] [place], [place] [address]Dr. Nahed Yañez K. pneumoniae Not detected Normal NOT DETECTED [facility] Comment on above: Performed By: #### B CID2 ####[facility] Kcljtzeycp[address] [place], [place] [address]Dr. Nahed Yañez Klebsiella aerogenes Not detected Normal NOT DETECTED [facility] Comment on above: Performed By: #### B CID2 ####[facility] Jyuhgzxjut8[address] [place] [address]Dr. Nahed Yañez KPC Resistant Gene Not detected Normal NOT DETECTED [facility] Comment on above: Performed By: #### B CID2 ####[facility] Zywoiwnoeb814[address] [place], [place] [address]Dr. Nahed Yañez List. monocytogenes Not detected Normal NOT DETECTED [facility] Comment on above: Performed By: #### B CID2 ####[facility] Havibzbfks232[address] [place], [place] [address]Dr. Nahed Yañez Mcr-1 Resistant Gene Not Applicable Normal NOT DETECTE D [facility] Comment on above: Performed By: #### B CID2 ####[facility] Sfkytqxcxq2025[address] [place], [place] [address]Dr. Nahed Yañez mecA/C Not Applicable Normal NOT DETECTED [facility] Comment on above: Performed By: #### B CID2 ####[facility] Jjjblvfvpp3716[address] [place], [place] [address]Dr. Nahed Yañez mecA/C MREJ Not Applicable Normal NOT DETECTED [facility] Comment on above: Performed By: #### B CID2 ####[facility] Rpzgxxgbrw24[address] [place], [place] [address]Dr. Nahed Yañez N. meningitidis Not detected Normal NOT DETECTED [facility] Comment on above: Performed By: #### B CID2 ####[facility] Bcmpryuuus[address] [place], [place] [address]Dr. Nahed Yañez NDM Resistant Gene Not Applicable Normal NOT DETECTED [facility] Comment on above: Performed By: #### B CID2 ####[facility] Sogvrkecqa[address] [place], [place] [address]Dr. Nahed Yañez Oxa-48-like Not Applicable Normal NOT DETECTED [facility] Comment on above: Performed By: #### B CID2 ####[facility] Sbrybqhlqj40[address] [place] [address]Dr. Nahed Yañez Proteus Not detected Normal NOT DETECTED [facility] Comment on above: Performed By: #### B CID2 ####[facility] Dqnhmkoasy8830 [place] [address]Dr. Nahed Yañez Pseud. aeruginosa Not detected Normal NOT DETECTED [facility] Comment on above: Performed By: #### B CID2 ####[facility] Izzwrzoniw4926[address] [place], [place] [address]Dr. Nahed Yañez S. maltophilia Not detected Normal NOT DETECTED [facility] Comment on above: Performed By: #### B CID2 ####[facility] Tkbexqucrh[address] [place], [place] [address]Dr. Nahed Yañez Salmonella Not detected Normal NOT DETECTED [facility] Comment on above: Performed By: #### B CID2 ####[facility] Jjzowhcymw194[address] [place], [place] [address]Dr. Nahed Yañez Seratia marcescens Not detected Normal NOT DETECTED [facility] Comment on above: Performed By: #### B CID2 ####[facility] Yjybsdqfkr5570[address] [place], [place] [address]Dr. Nahed Yañez Site: R AC Normal [facility] Comment on above: Performed By: #### B CID2 ####[facility] Qqgqzgfxyc8878[address] [place], [place] [address]Dr. Nahed Yañez Staph. aureus Not detected Normal NOT DETECTED [facility] Comment on above: Performed By: #### B CID2 ####[facility] Llapdqhbkh299[address] [place], [place] [address]Dr. Nahed Yañez Staph. epidermidis Not detected Normal NOT DETECTED [facility] Comment on above: Performed By: #### B CID2 ####[facility] Evdqonlpzi1490[address] [place], [place] [address]Dr. Nahed Yañez Staph. lugdunensis Not detected Normal NOT DETECTED [facility] Comment on above: Performed By: #### B CID2 ####[facility] Wndtsbwswd[address] [place], [place] [address]Dr. Nahed Yañez Staphylococcus Detected Critically abnormal NOT DETECTED [facility] Comment on above: Performed By: #### B CID2 ####[facility] Cmgcmbkfjo99[address] [place], [place] [address]Dr. Nahed Yañez Strep. agalactiae Not detected Normal NOT DETECTED [facility] Comment on above: Performed By: #### B CID2 ####[facility] Hhsckugvca7016[address] [place], [place] [address]Dr. Nahed Yañez Strep. pneumoniae Not detected Normal NOT DETECTED [facility] Comment on above: Performed By: #### B CID2 ####[facility] Yrupdblnlk1042[address] [place], [place] [address]Dr. Nahed Yañez Strep. pyogenes Not detected Normal NOT DETECTED [facility] Comment on above: Performed By: #### B CID2 ####[facility] Vbpymusnhm7627[address] [place], [place] [address]Dr. Nahed Yañez Streptococcus Not detected Normal NOT DETECTED [facility] Comment on above: Performed By: #### B CID2 ####[facility] Xwzzjizcso6432[address] [place], [place] [address]Dr. Nahed Yañez Tucker/B Resist. Gene Not detected Normal NOT DETECTED [facility] Comment on above: Performed By: #### B CID2 ####[facility] Ydsrwmbohw7[address] [place], [place] [address]Dr. Nahed Yañez VIM Resistant Gene Not Applicable Normal NOT DETECTED [facility] Comment on above: Performed By: #### B CID2 ####[facility] Hdkaldksjo72[address] [place], [place] [address]Dr. Nahed Yañez CARDIAC FRANCISCO 3-6on 3 CK [Catalytic activity/Vol] 25 U/L Critically low 26-192 [facility] Comment on above: Performed By: #### C MREP ####[facility] Vptehcmizd[address] [place], [place] [address]Dr. Nahed Yañez CK.MB [Mass/Vol] ng/mL Normal <=3.60 [facility] Comment on above: Performed By: #### C MREP ####[facility] Dxffkierjw6476 [place] [address]Dr. Nahed Yañez HSTROP 35.8 pg/mL Normal 4.0-51.3 [facility] Comment on above: Result Comment: CUT- OFF POINTS HAVE BEEN ESTABLISHED BASED ON THE FOURTH UNIVERSAL DEFINITIONS OF MYOCARDIALINFARCTION. THE UPPER REFERENCE LIMIT (URL) OF TROPONIN, DEFINED THE 99TH PERCENTILE OFcTnI DISTRIBUTION IN A REFERENCE POPULATION, HAS BEEN CONFIRMED THE DECISION THRESHOLDFOR SD DIAGNOSIS. Performed By: #### C MREP ####[facility] Nvpdziufgw7[address] [place] [address]Dr. Nahed Otilio CK [Catalytic activity/Vol] 28 U/L Normal 26-192 [facility] Comment on above: Performed By: #### C MREP ####[facility] Qaqklzaabe84[address] [place], [place] [address]Dr. Rosemarieashley Yañez CK.MB [Mass/Vol] ng/mL Normal <=3.60 [facility] Comment on above: Performed By: #### C MREP ####[facility] Tyyedvvygx[address] [place], [place] [address]Dr. Nahed Otilio HSTROP 36.8 pg/mL Normal 4.0-51.3 [facility] Comment on above: Result Comment: CUT- OFF POINTS HAVE BEEN ESTABLISHED BASED ON THE FOURTH UNIVERSAL DEFINITIONS OF MYOCARDIALINFARCTION. THE UPPER REFERENCE LIMIT (URL) OF TROPONIN, DEFINED THE 99TH PERCENTILE OFcTnI DISTRIBUTION IN A REFERENCE POPULATION, HAS BEEN CONFIRMED THE DECISION THRESHOLDFOR SD DIAGNOSIS. Performed By: #### C MREP ####[facility] [address]zjist[address]ew[address] [place], [place] [address]Dr. Rosemarieashley Otilio CBC AUTO DIFFon 07-30-2022 BASO # 0.0 103/ul Normal 0.0-0.1 [facility] Comment on above: Performed By: #### C BC ####[facility] [address] [place] [id number]. Nahed Yañez Basophils/100 WBC (Bld) 0.1 % Critically low 0.2-2.0 [facility] Comment on above: Performed By: #### C BC ####[facility] Xgitnfgqkd77[address] [place] [phone]. Nahed Yañez EO # 0.0 103/ul Normal 0.0-0.7 [facility] Comment on above: Performed By: #### C BC ####[facility] Lbddwvpehx260[address] [place] [phone]. Nahed Yañez Eosinophils/100 WBC (Bld) 0.0 % Critically low 0.9-7.0 [facility] Comment on above: Performed By: #### C BC ####[facility] [address] [place] [address]Dr. Nahed Yañez Erythrocyte distribution width (RBC) [Ratio] 14.4 % Normal 11.0-15.0 [facility] Comment on above: Performed By: #### C BC ####[facility] Tsqegq[address]xc[address] [place], [place] [address]Dr. Nahed Yañez Hematocrit (Bld) [Volume fraction] 37.7 % Normal 36.0-48.0 [facility] Comment on above: Performed By: #### C BC ####[facility] Rtpsxxkufm[address] [place], [place] [address]Dr. Nahed Yañez Hemoglobin (Bld) [Mass/Vol] 12.1 g/dL Normal 12.0-16.0 [facility] Comment on above: Performed By: #### C BC ####[facility] Rfhbtwcglc[address] [place], [place] [address]Dr. Nahed Yañez IG # 0.07 10e3/ul Critically high 0.00-0.03 [facility] Comment on above: Performed By: #### C BC ####[facility] Ftzprbguqc[address] [place], [place] [address]Dr. Nahed Yañez IG % 0.5 % Normal 0.0-0.5 [facility] Comment on above: Performed By: #### C BC ####[facility] Naipvabgwt[address] [place], [place] [address]Dr. Rosemarieashley Yañez LYMPH # 1.0 103/ul Critically low 1.2-3.8 [facility] Comment on above: Performed By: #### C BC ####[facility] Ljlhwmjqfa[address] [place] [phone]. Nahed Yañez Lymphocytes/100 WBC (Bld) 7.6 % Critically low 20.5-60.0 [facility] Comment on above: Performed By: #### C BC ####[facility] Ifekumdfje[address] [place] [phone]. Nahed Yañez MANUAL DIFF REQ NO Normal [facility] Comment on above: Performed By: #### C BC ####[facility] Mkxmdpfjki47[address] [place] [phone]. Nahed Yañez MCH (RBC) [Entitic mass] 28.8 pg Normal 26.7-34.0 [facility] Comment on above: Performed By: #### C BC ####[facility] Kjmfksxhqo[address] [place] [address]Dr. Nahed Yañez MCHC (RBC) [Mass/Vol] 32.1 g/dL Normal 29.9-35.2 [facility] Comment on above: Performed By: #### C BC ####[facility] Fuwzkrmbbx78[address] [place] [phone]. Nahed Yañez MCV (RBC) [Entitic vol] 89.8 fL Normal 81.0-99.0 [facility] Comment on above: Performed By: #### C BC ####[facility] Qnyvqpovbo28[address] [place] [phone]. Nahed Yañez MONO # 0.2 103/ul Critically low 0.3-0.8 [facility] Comment on above: Performed By: #### C BC ####[facility] Ninifnutzs0[address] [place] [phone]. Nahed Yañez Monocytes/100 WBC (Bld) 1.5 % Critically low 1.7-12.0 [facility] Comment on above: Performed By: #### C BC ####[facility] Qhvegxuyef49[address] [place] [phone]. Nahed Yañez NEUT # 11.7 103/ul Critically high 1.4-6.5 [facility] Comment on above: Performed By: #### C BC ####[facility] Lmacolumwk13[address] [place] [phone]. Nahed Yañez Neutrophils/100 WBC (Bld) 90.3 % Critically high 43.0-75.0 [facility] Comment on above: Performed By: #### C BC ####[facility] Gzoxmfnyod42[address] [place] [phone]. Nahde Yañez Platelet mean volume (Bld) [Entitic vol] 9.9 fL Normal 9.5-13.5 [facility] Comment on above: Performed By: #### C BC ####[facility] Okmouvqouv[address] [place] [phone]. Nahed Yañez PLT 319 103/ul Normal 150-450 [facility] Comment on above: Performed By: #### C BC ####[facility] Lhyroncnlh[address] [place], [place] [id number]. Nahed Yañez RBC 4.20 106/ul Normal 4.20-5.40 [facility] Comment on above: Performed By: #### C BC ####[facility] Djqxjfwyef5938 [place] [phone]. Nahed Yañez WBC 13.0 103/ul Critically high 4.0-11.0 [facility] Comment on above: Performed By: #### C BC ####[facility] Rrqqtwxnky65[address] [place] [phone]. Nahed Yañez CULTURE BLOODon 07-30-2022 Microscopic examination of blood, culture Culture Observations: NO GROWTH AT 5 DAYS. Normal [facility] Comment on above: Performed By: #### B LDCX1 ####[facility] Gjfnijklmw[address] [place], [place] [id number]. Nahed Yañez CULTURE SPUTUMon 07-30-2022 CULTURE SPUTUM Culture Observations : NORMAL RESPIRATORY MIGUEL. Normal [facility] Comment on above: Performed By: #### S PUTCX ####[facility] Qlfnuhldcl[address] [place], [place] [id number]. Nahed Yañez CULTURE URINEon 07-30-2022 CULTURE URINE Culture Observations : MODERATE GROWTH OF MIXED GENITAL MIGUEL. NO POTENTIAL PATHOGENS SEEN. Normal [facility] Comment on above: Performed By: #### U RCX ####[facility] Xruywudbbe67[address] [place], [place] [address]Dr. Nahed Otilio Covid-19 PCR (CVDTB)on 07-12 SARS-CoV-2 (COVID-19) RNA MIRNA+probe Ql (Unsp spec) Not detected Normal NOT DETECTED [facility] [...] for this test is supported by the Records Analyst of Health and Human Service's declaration that [...] be used). Performed By: #### C VDTB ####[facility] Dvzcabpkqe[address] [place], [place] [address]Dr. Rosemarieashley Yañez ER URINE PROFILEon 3 Bilirubin Ql (U) Negative Normal NEGATIVE [facility] Comment on above: Performed By: #### YARELIS DOVE ####[facility] Usozlxoike20[address] [place], [place] [address]Dr. Nahed Yañez Clarity (U) CLEAR Normal CLEAR [facility] Comment on above: Performed By: #### YARELIS DOVE ####[facility] Gvzueuccyj[address] [place], [place] [address]Dr. Nahed Yañez Color (U) LT. YELLOW Normal YELLOW [facility] Comment on above: Performed By: #### YARELIS DOVE ####[facility] Ddmbwfzwxj[address] [place] [address]Dr. Nahed AGEED A micrscopic examination will be performed if indicated. Normal [facility] Comment on above: Performed By: #### YARELIS DOVE ####[facility] Tfyhtwymyx[address] [place] [address]Dr. Nahed Yañez Glucose Ql (U) 500 mg/dl Abnormal NEGATIVE [facility] Comment on above: Performed By: #### YARELIS DOVE ####[facility] Rlzdqnfbje64[address] [place] [address]Dr. Nahed Yañez Hemoglobin Ql (U) Negative Normal NEGATIVE [facility] Comment on above: Performed By: #### YARELIS DOVE ####[facility] Bfpmbezddg17[address] [place], [place] [address]Dr. Nahed Yañez Ketones Ql (U) Negative Normal NEGATIVE [facility] Comment on above: Performed By: #### YARELIS DOVE ####[facility] Wypqpgmgdw[address] [place], [place] [address]Dr. Nahed Yañez LEUKOCYTES TRACE Abnormal NEGATIVE [facility] Comment on above: Performed By: #### YARELIS DOVE ####[facility] Wkbfnmfzdl88[address] [place], [place] [address]Dr. Nahed Yañez Nitrite Ql (U) Negative Normal NEGATIVE [facility] Comment on above: Performed By: #### YARELIS DOVE ####[facility] Eeruwlrtov[address] [place], [place] [address]Dr. Nahed Yañez pH (U) 6.0 [pH] Normal 5-9 [facility] Comment on above: Performed By: #### YARELIS DOVE ####[facility] Ydoafbqrgy[address] [place], [place] [address]Dr. Naehd Yañez SPEC GRAVITY >=1.030 Abnormal 1.005-<=1.02 5 [facility] Comment on above: Performed By: #### YARELIS DOVE ####[facility] Oazfrkjlfd[address] [place], [place] [address]Dr. Nahed Yañez UA PROTEIN Negative Normal NEGATIVE/ TRACE [facility] Comment on above: Performed By: #### YARELIS DOVE ####[facility] Ilystzpixm42[address] [place], [place] [address]Dr. Nahed Yañez UR MICRO IND INDICATED Normal [facility] Comment on above: Performed By: #### YARELIS DOVE ####[facility] Ycgoooucaz[address] [place], [place] [address]Dr. Nahed Yañez Urobilinogen Qn (U) 0.2 {Alem'U}/dL Normal 0.2 - 1. 0 [facility] Comment on above: Performed By: #### YARELIS DOVE ####[facility] Juqnhptxrg3384[address] [place], [place] [address]Dr. Nahed Yañez INFLUENZA A AND B AGon 07-30 INFLUANEGH SEE BELOW Normal [facility] Comment on above: Result Comment: Nega tive for Flu A protein angiten. Infection due to Flu A cannot be ruled out. Flu A angiten in the sample may be below the detection limit of the test. Performed By: #### I NFLUAB ####[facility] Ptgqtcofjo[address] [place], [place] [address]Dr. Nahed Yañez INFLUBNEGH SEE BELOW Normal [facility] Comment on above: Result Comment: Nega tive for Flu B protein antigen. Infection due to Flu B cannot be ruled out. Flu B antigen in the sample may be below the detection limit of the test. Performed By: #### I NFLUAB ####[facility] Sewjgihjgt52[address] [place], [place] [address]Dr. Rosemarieashley Yañez INFLUENZA A AG Negative Normal NEGATIVE SEE COMMENT [facility] Comment on above: Performed By: #### I NFLUAB ####[facility] Dtwkxddmcu98[address] [place], [place] [address]Dr. Nahed Yañez INFLUENZA B AG Negative Normal NEGATIVE SEE COMMENT [facility] Comment on above: Performed By: #### I NFLUAB ####[facility] Abebtvbmtz8467[address] [place], [place] [address]Dr. Nahed Yañez LACTATE/LACTIC ACIDon 2022 Lactate [Moles/Vol] 2.5 mmol/L Critically high 0.4-2.0 [facility] Comment on above: Performed By: #### L ACT ####[facility] Cx[address]kriejnt[address] [place] [address]Dr. Nahed Yañez Lactate [Moles/Vol] 3.3 mmol/L Critically high 0.4-2.0 [facility] Comment on above: Performed By: #### L ACT ####[facility] Mjnweiuwxu40[address] [place], [place] [address]Dr. Nahed Yañez Lactate [Moles/Vol] 2.7 mmol/L Critically high 0.4-2.0 [facility] Comment on above: Performed By: #### L ACT ####[facility] Dpjxkaczql[address] [place], [place] [address]Dr. Nahed Yañez Lactate [Moles/Vol] 2.8 mmol/L Critically high 0.4-2.0 [facility] Comment on above: Performed By: #### L ACT ####[facility] Ucjgdqnbcm04[address] [place], [place] [address]Dr. Nahed Otilio MAGNESIUMon 07-30-2022 Magnesium [Mass/Vol] 1.9 mg/dL Normal 1.8-2.4 [facility] Comment on above: Performed By: #### M G, CMP ####[facility] Dspemfpjxh13[address] [place], [place] [address]Dr. Nahed Yañez POINT OF CARE GLUCOSEon 07-12 Glucose [Mass/Vol] 220 mg/dL Critically high 74-106 [facility] Comment on above: Performed By: #### P OCGLUC ####[facility] Cnhsrjpaad[address] [place], [place] [address]Dr. Rosemarieashley Yañez Glucose [Mass/Vol] 162 mg/dL Critically high 74-106 [facility] Comment on above: Result Comment: Kaycee deonte Meter Performed By: #### P OCGLUC ####[facility] Cwkzyvrpzo1064[address] [place], [place] [address]Dr. Nahed Yañez PROF 14(COMP METB)on 03-19-2 023 Albumin [Mass/Vol] 2.9 g/dL Critically low 3.4-5.0 [facility] Comment on above: Performed By: #### Pablo Moore, CMP ####[facility] Duypdokauf[address] [place] [address]Dr. Nahed Yañez Albumin/Globulin [Mass ratio] 0.8 {ratio} Normal [facility] Comment on above: Performed By: #### Pablo Moore, CMP ####[facility] Livtfuqjwp40[address] [place] [address]Dr. Nahed Yañez ALP [Catalytic activity/Vol] 94 U/L Normal 46-116 [facility] Comment on above: Performed By: #### Pablo Moore, CMP ####[facility] Hvgceqcjhf7[address] [place], [place] [address]Dr. Nahed Yañez ALT [Catalytic activity/Vol] 22 U/L Normal 14-59 [facility] Comment on above: Performed By: #### Pablo Moore, CMP ####[facility] Fkkawbpose[address] [place] [address]Dr. Nahed Yañez Anion gap [Moles/Vol] 12.4 mmol/L Normal [facility] Comment on above: Performed By: #### Pablo Moore, CMP ####[facility] Snkhjmosld8439[address] [place], [place] [address]Dr. Nahed Yañez AST [Catalytic activity/Vol] 18 U/L Normal 15-37 [facility] Comment on above: Performed By: #### Pablo Moore, CMP ####[facility] Gbmejgikoy[address] [place] [address]Dr. Nahed Yañez Bilirubin [Mass/Vol] 0.1 mg/dL Critically low 0.2-1.0 [facility] Comment on above: Performed By: #### Pablo Moore, CMP ####[facility] Uwbxuhsmjy5914[address] [place], [place] [address]Dr. Nahed Yañez Calcium [Mass/Vol] 8.9 mg/dL Normal 8.5-10.1 [facility] Comment on above: Performed By: #### Pablo Moore, CMP ####[facility] Hmnxwlleyj8[address] [place], [place] [address]Dr. Nahed Yañez Chloride [Moles/Vol] 99 mmol/L Normal 98-107 [facility] Comment on above: Performed By: #### Pablo Moore, CMP ####[facility] Ibbceraque1953[address] [place], [place] [address]Dr. Nahed Yañez CO2 [Moles/Vol] 26.0 mmol/L Normal 21.0-32.0 [facility] Comment on above: Performed By: #### Pablo Moore, CMP ####[facility] Gcukehxxvs34[address] [place], [place] [address]Dr. Nahed Otilio Creatinine [Mass/Vol] 1.16 mg/dL Critically high 0.55-1.02 [facility] Comment on above: Performed By: #### Pablo Moore, CMP ####[facility] Qifidgfool83[address] [place], [place] [address]Dr. Nahed Otilio EGFR-AF GREEK 58 mL/min/1.73m2 Critically low >=60 [facility] Comment on above: Performed By: #### Pabol Moore, CMP ####[facility] Cbwyuwjwkj26[address] [place], [place] [address]Dr. Nahed Otilio EGFR-NON AF GREEK 47 mL/min/1.73m2 Critically low >=60 [facility] Comment on above: Performed By: #### Pablo Moore, CMP ####[facility] Kijgfrzvai32[address] [place], [place] [address]Dr. Rosemarieashley Yañez Globulin (S) [Mass/Vol] 3.7 g/dL Normal [facility] Comment on above: Performed By: #### Pablo Moore, CMP ####[facility] Dbkrmjesaa0582[address] [place], [place] [address]Dr. Rosemarieashley Otilio Glucose [Mass/Vol] 267 mg/dL Critically high 74-106 [facility] Comment on above: Performed By: #### Pablo Moore, CMP ####[facility] Qnrfgaofxf53[address] [place], [place] [address]Dr. Nahed Yañez Potassium [Moles/Vol] 4.4 mmol/L Normal 3.5-5.1 [facility] Comment on above: Performed By: #### Pablo Moore, CMP ####[facility] Czlzmejoub[address] [place], [place] [address]Dr. Rosemarieashley Yañez Protein [Mass/Vol] 6.6 g/dL Normal 6.4-8.2 [facility] Comment on above: Performed By: #### M Teresa, CMP ####[facility] Venjyfvkee[address] [place], [place] [address]Dr. Nahed Yañez Sodium [Moles/Vol] 133 mmol/L Critically low 136-145 [facility] Comment on above: Performed By: #### M Teresa, CMP ####[facility] Apesalodkv6317[address] [place], [place] [address]Dr. Nahed Yañez Urea nitrogen [Mass/Vol] 33.0 mg/dL Critically high 7.0-18.0 [facility] Comment on above: Performed By: #### Pablo Moore, CMP ####[facility] Izaxvntasd3[address] [place], [place] [address]Dr. Nahed Yañez Urea nitrogen/Creatinine [Mass ratio] 28.4 mg/mg Normal [facility] Comment on above: Performed By: #### Pablo Moore, CMP ####[facility] Bidiaxzivu[address] [place], [place] [address]Dr. Nahed Yañez SPUTUM GRAM STAINon 07-31-19 COMMENTS Normal [facility] Comment on above: Performed By: #### S PUTGS ####[facility] Cqgohbnejb[address] [place], [place] [address]Dr. Nahed Yañez DIPHTHEROIDS Normal [facility] Comment on above: Performed By: #### S PUTGS ####[facility] Vpwquzgnqy48[address] [place], [place] [address]Dr. Nahed Yañez EPITHELIALS <25 Normal [facility] Comment on above: Performed By: #### S PUTGS ####[facility] Lieveurksy8426[address] [place], [place] [address]Dr. Nahed Yañez FUNGAL ELEMENTS Normal [facility] Comment on above: Performed By: #### S PUTGS ####[facility] Onowztlibe2339[address] [place], [place] [address]Dr. Nahed Yañez GRAM NEG BACILLI Normal [facility] Comment on above: Performed By: #### S PUTGS ####[facility] Bosepczjsx[address] [place] [address]Dr. Nahed Yañez GRAM NEG DIPPLOCOCCI Normal [facility] Comment on above: Performed By: #### S PUTGS ####[facility] Xizxyipxmk47[address] [place] [address]Dr. Nahed Yañez GRAM POS BACILLI FEW Normal [facility] Comment on above: Performed By: #### S PUTGS ####[facility] Wsydhvfwyu[address] [place] [address]Dr. Nahed Yañez GRAM POSITIVE COCCI FEW Normal [facility] Comment on above: Performed By: #### S PUTGS ####[facility] Gtwowpfutj6[address] [place], [place] [address]Dr. Nahed Yañez WBC (Bld) [#/Vol] 10*3/uL Normal [facility] Comment on above: Performed By: #### S PUTGS ####[facility] Frklbyvlfl9[address] [place], [place] [address]Dr. Nahed Yañez URINE MICROSCOPIC ONLYon BACTERIA SMALL Abnormal NONE SEEN [facility] Comment on above: Performed By: #### YARELIS DOVE ####[facility] Bomtwdeybi[address] [place], [place] [address]Dr. Nahed Yañez Bacteria identified Cx Nom (U) INDICATED Normal [facility] Comment on above: Performed By: #### YARELIS DOVE ####[facility] Agrlujkrlv65[address] [place], [place] [address]Dr. Nahed Yañez CAST NONE SEEN Normal NONE SEEN [facility] Comment on above: Performed By: #### NUNU DOVERO ####[facility] Nvuqxhfved[address] [place], [place] [address]Dr. Nahed Yañez Crystals LM Nom (Urine sed) NONE SEEN Normal NONE SEEN [facility] Comment on above: Performed By: #### NUNU DOVERO ####[facility] Yljywfuxzi[address] [place] [address]Dr. Nahed Yañez Epithelial cells LM Ql (Urine sed) FEW Abnormal NONE SEEN /RARE [facility] Comment on above: Performed By: #### Isidoro ALCARAZ UMICRO ####[facility] Jecpdxlemc[address] [place] [address]Dr. Nahed Yañez MUCOUS TRACE Abnormal NONE SEEN [facility] Comment on above: Performed By: #### NUNU DOVERO ####[facility] Axscvnmjqd3649 [place] [address]Dr. Nahed Yañez RBC 0-2 Normal 0-2 [facility] Comment on above: Performed By: #### NUNU DOVERO ####[facility] Frxpbpgkcg3803 [place] [address]Dr. Nahed Yañez WBC 0-2 Abnormal NONE SEEN [facility] Comment on above: Performed By: #### NUNU DOVERO ####[facility] Ywjtuemiqm40[address] [place] [address]Dr. Nahed Yañez XR CHEST 1 Von 07-30-2022 XR CHEST 1 V Normal [facility] CARDIAC FRANCISCO ADMITon 023 CK [Catalytic activity/Vol] 59 U/L Normal 26-192 [facility] Comment on above: Performed By: #### BLADIMIR SINGH ####[facility] Chybjyqckx[address] [place], [place] [address]Dr. Nahed Yañez CK.MB [Mass/Vol] 0.59 ng/mL Normal <=3.60 [facility] Comment on above: Performed By: #### BLADIMIR SINGH ####[facility] Glypijxqcs[address] [place], [place] [address]Dr. Nahed Otilio HSTROP 40.7 pg/mL Normal 4.0-51.3 [facility] Comment on above: Result Comment: CUT- OFF POINTS HAVE BEEN ESTABLISHED BASED ON THE FOURTH UNIVERSAL DEFINITIONS OF MYOCARDIALINFARCTION. THE UPPER REFERENCE LIMIT (URL) OF TROPONIN, DEFINED THE 99TH PERCENTILE OFcTnI DISTRIBUTION IN A REFERENCE POPULATION, HAS BEEN CONFIRMED THE DECISION THRESHOLDFOR SD DIAGNOSIS. Performed By: #### BLADIMIR SINGH ####[facility] Wmqzhurezq[address] [place], [place] [address]Dr. Nahed Yañez ANDRE 89 ng/mL Critically high 9-82 [facility] Comment on above: Performed By: #### C MADM, BMP ####[facility] Mwnbeiykkg[address] [place], [place] [address]Dr. Nahed Yañez CBC AUTO DIFFon 07-29-2022 BASO # 0.0 103/ul Normal 0.0-0.1 [facility] Comment on above: Performed By: #### C BC ####[facility] Rmokxnhxvo[address] [place], [place] [address]Dr. Nahed Yañez Basophils/100 WBC (Bld) 0.1 % Critically low 0.2-2.0 [facility] Comment on above: Performed By: #### C BC ####[facility] Cidfyrttbb[address] [place], [place] [address]Dr. Nahed Yañez EO # 0.0 103/ul Normal 0.0-0.7 [facility] Comment on above: Performed By: #### C BC ####[facility] Lnsxrkumyx[address] [place], [place] [address]Dr. Nahed Yañez Eosinophils/100 WBC (Bld) 0.0 % Critically low 0.9-7.0 [facility] Comment on above: Performed By: #### C BC ####[facility] Vndzhfyntl[address] [place], [place] [address]Dr. Nahed Yañez Erythrocyte distribution width (RBC) [Ratio] 14.5 % Normal 11.0-15.0 [facility] Comment on above: Performed By: #### C BC ####[facility] Ejtjrcxbrt[address] [place], [place] [address]Dr. Nahed Yañez Hematocrit (Bld) [Volume fraction] 42.1 % Normal 36.0-48.0 [facility] Comment on above: Performed By: #### C BC ####[facility] Ymlpzwtbqs[address] [place], [place] [address]Dr. Nahed Yañez Hemoglobin (Bld) [Mass/Vol] 13.4 g/dL Normal 12.0-16.0 [facility] Comment on above: Performed By: #### C BC ####[facility] [address]fvq[address] [place] [id number]. Nahed Otilio IG # 0.07 10e3/ul Critically high 0.00-0.03 [facility] Comment on above: Performed By: #### C BC ####[facility] Wqzitfbznq[address] [place] [address]Dr. Nahed Yañez IG % 0.5 % Normal 0.0-0.5 [facility] Comment on above: Performed By: #### C BC ####[facility] S[address]zaqssc[address] [place] [address]DrShaun Yañez LYMPH # 3.2 103/ul Normal 1.2-3.8 [facility] Comment on above: Performed By: #### C BC ####[facility] Thzttbefkp[address] [place], [place] [address]Dr. Nahed Yañez Lymphocytes/100 WBC (Bld) 21.2 % Normal 20.5-60.0 [facility] Comment on above: Performed By: #### C BC ####[facility] Nuytdyclkd[address] [place], [place] [address]DrShaun Rosemarieashley Yañez MANUAL DIFF REQ NO Normal [facility] Comment on above: Performed By: #### C BC ####[facility] Bvzoigmwtd3549 [place] [address]DrShaun Nahed Yañez MCH (RBC) [Entitic mass] 28.1 pg Normal 26.7-34.0 [facility] Comment on above: Performed By: #### C BC ####[facility] Huppwwiuyr7[address] [place] [address]DrShaun Nahed Otilio MCHC (RBC) [Mass/Vol] 31.8 g/dL Normal 29.9-35.2 [facility] Comment on above: Performed By: #### C BC ####[facility] Lftdrymnka2408 [place] [address]DrShaun Nahed Otilio MCV (RBC) [Entitic vol] 88.3 fL Normal 81.0-99.0 [facility] Comment on above: Performed By: #### C BC ####[facility] Mugaafmcmz45[address] [place], [place] [address]Dr. Rosemarieashley Otilio MONO # 1.0 103/ul Critically high 0.3-0.8 [facility] Comment on above: Performed By: #### C BC ####[facility] Porvctakds[address] [place] [address]Dr. Nahed Yañez Monocytes/100 WBC (Bld) 6.3 % Normal 1.7-12.0 [facility] Comment on above: Performed By: #### C BC ####[facility] Dogvjbllou4713 [place] [address]Dr. Nahed Yañez NEUT # 11.0 103/ul Critically high 1.4-6.5 [facility] Comment on above: Performed By: #### C BC ####[facility] Zlgrkodpjw4[address] [place] [address]Dr. Nahed Yañez Neutrophils/100 WBC (Bld) 71.9 % Normal 43.0-75.0 [facility] Comment on above: Performed By: #### C BC ####[facility] Kgcpaqdbqz4[address] [place], [place] [address]Dr. Nahed Otilio Platelet mean volume (Bld) [Entitic vol] 9.9 fL Normal 9.5-13.5 [facility] Comment on above: Performed By: #### C BC ####[facility] Zbksrgbepr75[address] [place] [address]Dr. Nahed Otilio PLT 385 103/ul Normal 150-450 [facility] Comment on above: Performed By: #### C BC ####[facility] Wujoxjrqxf[address] [place], [place] [address]Dr. Nahed Otilio RBC 4.77 106/ul Normal 4.20-5.40 [facility] Comment on above: Performed By: #### C BC ####[facility] Cicizuhitt[address] [place] [address]Dr. Nahed Yañez WBC 15.3 103/ul Critically high 4.0-11.0 [facility] Comment on above: Performed By: #### C BC ####[facility] Hrcsznhxjp5[address] [place] [address]Dr. Nahed Yañez PROF CHEM 8 (BAS METB)on Anion gap [Moles/Vol] 13.4 mmol/L Normal [facility] Comment on above: Performed By: #### Isabell AGRAWAL, BMP ####[facility] Qwsbcxvxhc4356 [place] [address]Dr. Nahed Yañez Calcium [Mass/Vol] 9.5 mg/dL Normal 8.5-10.1 [facility] Comment on above: Performed By: #### Isabell AGRAWAL, BMP ####[facility] Dznnmlwtmk9[address] [place] [address]Dr. Nahed Yañez Chloride [Moles/Vol] 101 mmol/L Normal 98-107 [facility] Comment on above: Performed By: #### Isabell AGRAWAL, BMP ####[facility] Sdrengahhu[address] [place] [address]Dr. Nahed Yañez CO2 [Moles/Vol] 27.9 mmol/L Normal 21.0-32.0 [facility] Comment on above: Performed By: #### Isabell AGRAWAL, BMP ####[facility] Popiczzact44[address] [place] [address]Dr. Nahed Yañez Creatinine [Mass/Vol] 0.91 mg/dL Normal 0.55-1.02 [facility] Comment on above: Performed By: #### Isabell AGRAWAL, BMP ####[facility] Zimykyboql[address] [place] [address]Dr. Nahed Yañez EGFR-AF GREEK >60 Normal >=60 [facility] Comment on above: Performed By: #### Isabell AGRAWAL, BMP ####[facility] Zxnvaftidq67[address] [place] [address]Dr. Nahed Yañez EGFR-NON AF GREEK >60 Normal >=60 [facility] Comment on above: Performed By: #### Isabell AGRAWAL, BMP ####[facility] Rzxwcthjyz2667 [place] [address]Dr. Nahed Yañez Glucose [Mass/Vol] 100 mg/dL Normal 74-106 [facility] Comment on above: Performed By: #### Isabell AGRAWAL, BMP ####[facility] Irkzyacedd9785 [place] [address]Dr. Nahed Yañez Potassium [Moles/Vol] 4.3 mmol/L Normal 3.5-5.1 [facility] Comment on above: Result Comment: samp le slightly hemolized Performed By: #### C NGHIA, BMP ####[facility] Fefnlmtire4766[address] [place], [place] [address]Dr. Nahed Yañez Sodium [Moles/Vol] 138 mmol/L Normal 136-145 [facility] Comment on above: Performed By: #### C NGHIA, BMP ####[facility] Gmiksptdbe15[address] [place], [place] [address]Dr. Nahed Yañez Urea nitrogen [Mass/Vol] 34.0 mg/dL Critically high 7.0-18.0 [facility] Comment on above: Performed By: #### C NGHIA, BMP ####[facility] Lekkaghqbu9990[address] [place], [place] [address]Dr. Nahed Yañez Urea nitrogen/Creatinine [Mass ratio] 37.4 mg/mg Normal [facility] Comment on above: Performed By: #### C NGHIA, BMP ####[facility] Phnlitssok20[address] [place], [place] [address]Dr. Nahed Yañez BNPon 07-28-2022 Natriuretic peptide B (Bld) [Mass/Vol] 249.0 pg/mL Normal <=900.0 [facility] Comment on above: Performed By: #### B FRUIT COORDINATOR ####[facility] Dljnsysxfo1539[address] [place], [place] [address]Dr. Nahed Yañez CBC AUTO DIFFon 07-28-2022 BASO # 0.0 103/ul Normal 0.0-0.1 [facility] Comment on above: Performed By: #### C BC ####[facility] Enmbfcmwla5247[address] [place], [place] [address]Dr. Nahed Yañez Basophils/100 WBC (Bld) 0.1 % Critically low 0.2-2.0 [facility] Comment on above: Performed By: #### C BC ####[facility] Vmbkyzalbj01[address] [place], [place] [address]Dr. Nahed Yañez EO # 0.0 103/ul Normal 0.0-0.7 [facility] Comment on above: Performed By: #### C BC ####[facility] Spmcvhbign1034 [place] [address]Dr. Nahed Yañez Eosinophils/100 WBC (Bld) 0.0 % Critically low 0.9-7.0 [facility] Comment on above: Performed By: #### C BC ####[facility] Egxatmpxkj6350[address] [place], [place] [address]Dr. Nahed Yañez Erythrocyte distribution width (RBC) [Ratio] 14.3 % Normal 11.0-15.0 [facility] Comment on above: Performed By: #### C BC ####[facility] Ktxunrmpih8666[address] [place], [place] [address]Dr. Nahed Yañez Hematocrit (Bld) [Volume fraction] 38.7 % Normal 36.0-48.0 [facility] Comment on above: Performed By: #### C BC ####[facility] Ccvxbwnfpd6497[address] [place], [place] [address]Dr. Nahed Yañez Hemoglobin (Bld) [Mass/Vol] 12.2 g/dL Normal 12.0-16.0 [facility] Comment on above: Performed By: #### C BC ####[facility] Ijedafxfiw4542[address] [place], [place] [address]Dr. Nahed Yañez IG # 0.06 10e3/ul Critically high 0.00-0.03 [facility] Comment on above: Performed By: #### C BC ####[facility] Mnfbnacqzt18[address] [place] [address]Dr. Nahed Yañez IG % 0.5 % Normal 0.0-0.5 [facility] Comment on above: Performed By: #### C BC ####[facility] Tdgmfxramj92[address] [place], [place] [address]DrShaun Nahed Yañez LYMPH # 0.7 103/ul Critically low 1.2-3.8 [facility] Comment on above: Performed By: #### C BC ####[facility] Lpclaoirop[address] [place] [address]. Nahed Yañez Lymphocytes/100 WBC (Bld) 5.7 % Critically low 20.5-60.0 [facility] Comment on above: Performed By: #### C BC ####[facility] Bthteialbn57[address] [place] [address]Dr. Nahed Yañez MANUAL DIFF REQ NO Normal [facility] Comment on above: Performed By: #### C BC ####[facility] Zeawtfptgt5047 [place] [address]Dr. Nahed Yañez MCH (RBC) [Entitic mass] 28.2 pg Normal 26.7-34.0 [facility] Comment on above: Performed By: #### C BC ####[facility] Xzhrajvilc1199[address] [place], [place] [address]Dr. aNhed Yañez MCHC (RBC) [Mass/Vol] 31.5 g/dL Normal 29.9-35.2 [facility] Comment on above: Performed By: #### C BC ####[facility] Sdvvbvfhcd7633[address] [place], [place] [address]Dr. Nahed Yañez MCV (RBC) [Entitic vol] 89.6 fL Normal 81.0-99.0 [facility] Comment on above: Performed By: #### C BC ####[facility] Vzybgbozur5864[address] [place], [place] [address]Dr. Nahed Yañez MONO # 0.3 103/ul Normal 0.3-0.8 [facility] Comment on above: Performed By: #### C BC ####[facility] Uqxfxhbxlr20[address] [place], [place] [address]Dr. Nahed Yañez Monocytes/100 WBC (Bld) 2.2 % Normal 1.7-12.0 [facility] Comment on above: Performed By: #### C BC ####[facility] Jehxbrmpgn020[address] [place], [place] [address]Dr. Nahed Yañez NEUT # 11.1 103/ul Critically high 1.4-6.5 [facility] Comment on above: Performed By: #### C BC ####[facility] Brvafgysvu7808[address] [place], [place] [address]Dr. Nahed Yañez Neutrophils/100 WBC (Bld) 91.5 % Critically high 43.0-75.0 [facility] Comment on above: Performed By: #### C BC ####[facility] Tcxrraakoj3446 [place] [address]Dr. Nahed Yañez Platelet mean volume (Bld) [Entitic vol] 10.1 fL Normal 9.5-13.5 [facility] Comment on above: Performed By: #### C BC ####[facility] Kjqrfnvfxy2552 [place] [address]Dr. Nahed Yañez PLT 323 103/ul Normal 150-450 [facility] Comment on above: Performed By: #### C BC ####[facility] Fwbcaaasfp9270 [place] [address]Dr. Nahed Yañez RBC 4.32 106/ul Normal 4.20-5.40 [facility] Comment on above: Performed By: #### C BC ####[facility] Xtopokysix7[address] [place], [place] [address]Dr. Nahed Yañez WBC 12.1 103/ul Critically high 4.0-11.0 [facility] Comment on above: Performed By: #### C BC ####[facility] Osofzcxoel046[address] [place], [place] [address]Dr. Nahed Yañez POINT OF CARE GLUCOSEon 07-12 Glucose [Mass/Vol] 308 mg/dL Critically high 74-106 [facility] Comment on above: Performed By: #### P OCGLUC ####[facility] Razmymqxxc18[address] [place] [address]Dr. Nahed Yañez Glucose [Mass/Vol] 341 mg/dL Critically high 74-106 [facility] Comment on above: Performed By: #### P OCGLUC ####[facility] Nhzsxeahgh0916[address] [place], [place] [address]Dr. Nahed Yañez Glucose [Mass/Vol] 320 mg/dL Critically high 74-106 [facility] Comment on above: Performed By: #### P OCGLUC ####[facility] Plhmarnidd[address] [place], [place] [address]Dr. Nahed Yañez PROF 14(COMP METB)on 023 Albumin [Mass/Vol] 3.0 g/dL Critically low 3.4-5.0 [facility] Comment on above: Performed By: #### C MP ####[facility] Pbueofqyns9265 [place] [address]Dr. Nahed Yañez Albumin/Globulin [Mass ratio] 0.7 {ratio} Normal [facility] Comment on above: Performed By: #### C MP ####[facility] Nkfepgibau1139 [place] [address]Dr. Nahed Yañez ALP [Catalytic activity/Vol] 93 U/L Normal 46-116 [facility] Comment on above: Performed By: #### C MP ####[facility] Tuebouzgid7594[address] [place], [place] [address]Dr. Nahed Yañez ALT [Catalytic activity/Vol] 15 U/L Normal 14-59 [facility] Comment on above: Performed By: #### C MP ####[facility] Ysjosqmbxj436[address] [place], [place] [address]Dr. Nahed Yañez Anion gap [Moles/Vol] 13.0 mmol/L Normal [facility] Comment on above: Performed By: #### C MP ####[facility] Twwgoseaow23[address] [place], [place] [address]Dr. Nahed Yañez AST [Catalytic activity/Vol] 11 U/L Critically low 15-37 [facility] Comment on above: Performed By: #### C MP ####[facility] Xhlimlxpst1685[address] [place], [place] [address]Dr. Nahed Yañez Bilirubin [Mass/Vol] 0.2 mg/dL Normal 0.2-1.0 [facility] Comment on above: Performed By: #### C MP ####[facility] Rcmlcxaqey9638[address] [place], [place] [address]Dr. Nahed Yañez Calcium [Mass/Vol] 9.6 mg/dL Normal 8.5-10.1 [facility] Comment on above: Performed By: #### C MP ####[facility] Ukqcvxcpcj2592 [place] [address]Dr. Nahed Yañez Chloride [Moles/Vol] 100 mmol/L Normal 98-107 [facility] Comment on above: Performed By: #### C MP ####[facility] Cwgmurzepc2526 [place] [address]Dr. Nahed Yañez CO2 [Moles/Vol] 27.3 mmol/L Normal 21.0-32.0 [facility] Comment on above: Performed By: #### C MP ####[facility] Kcdgkrmexg5142 [place] [address]Dr. Nahed Yañez Creatinine [Mass/Vol] 1.19 mg/dL Critically high 0.55-1.02 [facility] Comment on above: Performed By: #### C MP ####[facility] Qeujwawvyn0026[address] [place], [place] [address]Dr. Nahed Yañez EGFR-AF GREEK 56 mL/min/1.73m2 Critically low >=60 [facility] Comment on above: Performed By: #### C MP ####[facility] Oehhudoxiq214[address] [place], [place] [address]Dr. Nahed Yañez EGFR-NON AF GREEK 46 mL/min/1.73m2 Critically low >=60 [facility] Comment on above: Performed By: #### C MP ####[facility] Owyzaxcqez260[address] [place], [place] [address]Dr. Nahed Otilio Globulin (S) [Mass/Vol] 4.1 g/dL Normal [facility] Comment on above: Performed By: #### C MP ####[facility] Dgqyzidyfm0107 [place] [address]Dr. Nahed Otilio Glucose [Mass/Vol] 244 mg/dL Critically high 74-[address] [facility] Comment on above: Performed By: #### C MP ####[facility] Msnghskufo4354[address] [place], [place] [address]Dr. Nahed Yañez Potassium [Moles/Vol] 4.3 mmol/L Normal 3.5-5.1 [facility] Comment on above: Performed By: #### C MP ####[facility] Mecbaaposq8901 [place] [address]Dr. Nahed Yañez Protein [Mass/Vol] 7.1 g/dL Normal 6.4-8.2 [facility] Comment on above: Performed By: #### C MP ####[facility] Grohyayeqj9805[address] [place], [place] [address]Dr. Nahed Yañez Sodium [Moles/Vol] 136 mmol/L Normal 136-145 [facility] Comment on above: Performed By: #### C MP ####[facility] Devljazxya5569[address] [place], [place] [address]Dr. Nahed Otilio Urea nitrogen [Mass/Vol] 19.0 mg/dL Critically high 7.0-18.0 [facility] Comment on above: Performed By: #### C MP ####[facility] Ibvkdccvyx27[address] [place], [place] [address]Dr. Rosemarieashley Yañez Urea nitrogen/Creatinine [Mass ratio] 16.0 mg/mg Normal [facility] Comment on above: Performed By: #### C MP ####[facility] Ufdchssfxq9118[address] [place], [place] [address]Dr. Nahed Otilio BNPon 07-27-2022 Natriuretic peptide B (Bld) [Mass/Vol] 1093.0 pg/mL Critically high <=900.0 [facility] Comment on above: Performed By: #### B FRUIT COORDINATOR ####[facility] Cfjkdugsyr7257[address] [place], [place] [address]Dr. Nahed Otilio CBC AUTO DIFFon 07-27-2022 BASO # 0.1 103/ul Normal 0.0-0.1 [facility] Comment on above: Performed By: #### C BC ####[facility] Icinevtpcz8485[address] [place], [place] [address]Dr. Rosemarieashley Yañez Basophils/100 WBC (Bld) 0.3 % Normal 0.2-2.0 [facility] Comment on above: Performed By: #### C BC ####[facility] Hmzikwtjgg9[address] [place], [place] [address]Dr. Nahed Yañez EO # 0.2 103/ul Normal 0.0-0.7 [facility] Comment on above: Performed By: #### C BC ####[facility] Bspywitsdb1062 [place] [address]Dr. Nahed Yañez Eosinophils/100 WBC (Bld) 1.2 % Normal 0.9-7.0 [facility] Comment on above: Performed By: #### C BC ####[facility] Ctlnocjbtu9655 [place] [address]Dr. Nahed Yañez Erythrocyte distribution width (RBC) [Ratio] 14.1 % Normal 11.0-15.0 [facility] Comment on above: Performed By: #### C BC ####[facility] Ebsuxgyohv0560[address] [place], [place] [address]Dr. Nahed Yañez Hematocrit (Bld) [Volume fraction] 42.2 % Normal 36.0-48.0 [facility] Comment on above: Performed By: #### C BC ####[facility] Weohsyauhb3522[address] [place], [place] [address]Dr. Nahed Yañez Hemoglobin (Bld) [Mass/Vol] 13.6 g/dL Normal 12.0-16.0 [facility] Comment on above: Performed By: #### C BC ####[facility] Thncbfwgys2794[address] [place], [place] [address]Dr. Nahed Yañez IG # 0.09 10e3/ul Critically high 0.00-0.03 [facility] Comment on above: Performed By: #### C BC ####[facility] Jdzljiedny4127[address] [place], [place] [address]Dr. Nahed Yañez IG % 0.5 % Normal 0.0-0.5 [facility] Comment on above: Performed By: #### C BC ####[facility] Qxvsznkykm2310[address] [place], [place] [address]Dr. Nahed Yañez LYMPH # 1.8 103/ul Normal 1.2-3.8 [facility] Comment on above: Performed By: #### C BC ####[facility] Vlafuwgwdj2374[address] [place], [place] [address]Dr. Nahed Yañez Lymphocytes/100 WBC (Bld) 10.2 % Critically low 20.5-60.0 [facility] Comment on above: Performed By: #### C BC ####[facility] Axytyxgsnk7094 [place] [address]Dr. Nahed Yañez MANUAL DIFF REQ NO Normal [facility] Comment on above: Performed By: #### C BC ####[facility] Gtkyqxdool1384 [place] [address]Dr. Nahed Yañez MCH (RBC) [Entitic mass] 28.3 pg Normal 26.7-34.0 [facility] Comment on above: Performed By: #### C BC ####[facility] Wsirfkihmf7252 [place] [address]Dr. Nahed Yañez MCHC (RBC) [Mass/Vol] 32.2 g/dL Normal 29.9-35.2 [facility] Comment on above: Performed By: #### C BC ####[facility] Rexetpxsvb030[address] [place], [place] [address]Dr. Nahed Yañez MCV (RBC) [Entitic vol] 87.9 fL Normal 81.0-99.0 [facility] Comment on above: Performed By: #### C BC ####[facility] Lexjordrxg9[address] [place], [place] [address]Dr. Nahed Yañez MONO # 0.9 103/ul Critically high 0.3-0.8 [facility] Comment on above: Performed By: #### C BC ####[facility] Avjblfhsfs5701[address] [place], [place] [address]Dr. Nahed Yañez Monocytes/100 WBC (Bld) 5.2 % Normal 1.7-12.0 [facility] Comment on above: Performed By: #### C BC ####[facility] Xghzpihywe[address] [place], [place] [address]DrShaun Yañez NEUT # 14.4 103/ul Critically high 1.4-6.5 [facility] Comment on above: Performed By: #### C BC ####[facility] Cqlgpxkoou8280[address] [place], [place] [address]Dr. Nahed Yañez Neutrophils/100 WBC (Bld) 82.6 % Critically high 43.0-75.0 [facility] Comment on above: Performed By: #### C BC ####[facility] Vrlepqyixw4719 [place], [place] [address]Nh. Nahed Yañez Platelet mean volume (Bld) [Entitic vol] 10.1 fL Normal 9.5-13.5 [facility] Comment on above: Performed By: #### C BC ####[facility] Dvypfnrpys5518 [place] [id number]. Nahed Yañez PLT 336 103/ul Normal 150-450 [facility] Comment on above: Performed By: #### C BC ####[facility] Scmsfosxhv1457 [place], [place] [address]Pt. Nahed Yañez RBC 4.80 106/ul Normal 4.20-5.40 [facility] Comment on above: Performed By: #### C BC ####[facility] Mliebotudp4615 [place] [address]Dr. Nahed Yañez WBC 17.4 103/ul Critically high 4.0-11.0 [facility] Comment on above: Performed By: #### C BC ####[facility] Xovzlsxcql4631 [place], [place] [address]Mp. Nahed Yañez CTA CHEST WO W CONon 023 CTA CHEST WO W CON Normal [facility] ([facility]on 07-12 SARS-CoV-2 (COVID-19) RNA MIRNA+probe Ql (Unsp spec) Not detected Normal NOT DETECTED [facility] [...] for this test is supported by the [place] of [employer] and Human Service's declaration that [...] be used). Performed By: #### C VDTB ####[facility] Mvywgwthsl04[address] [place], [place] [address]Dr. Nahed Yañez ECHOCARDIO M/2D COMPLETEon 0 07-27-2022 ECHOCARDIO M/2D COMPLETE Normal [facility] ER URINE PROFILEon 3 Bilirubin Ql (U) Negative Normal NEGATIVE [facility] Comment on above: Performed By: #### U MICRO, ERUR ####[facility] Iwjtorxydi[address] [place], [place] [address]Dr. Nahed Yañez Clarity (U) CLEAR Normal CLEAR [facility] Comment on above: Performed By: #### U MICRO, ERUR ####[facility] Juyaynusmq4128[address] [place], [place] [address]Dr. Nahed Yañez Color (U) LT. YELLOW Normal YELLOW [facility] Comment on above: Performed By: #### U MICRO, ERUR ####[facility] Dxefqjaewa8[address] [place], [place] [address]Dr. Nahed CORNELLAHD A micrscopic examination will be performed if indicated. Normal [facility] Comment on above: Performed By: #### U MICRO, ERUR ####[facility] Eaacdejjzv[address] [place], [place] [address]Dr. Nahed Yañez Glucose Ql (U) >1000 Abnormal NEGATIVE [facility] Comment on above: Performed By: #### U MICRO, ERUR ####[facility] Ssetcttslh45[address] [place], [place] [address]Dr. Nahed Yañez Hemoglobin Ql (U) TRACE-LYSED Abnormal NEGATIVE [facility] Comment on above: Performed By: #### U MICRO, ERUR ####[facility] Ximhhspdzo06[address] [place], [place] [address]Dr. Nahed Yañez Ketones Ql (U) TRACE Abnormal NEGATIVE [facility] Comment on above: Performed By: #### U MICRO, ERUR ####[facility] Idladmdtlw3556 [place] [address]Dr. Rosemarieashley Yañez LEUKOCYTES Negative Normal NEGATIVE [facility] Comment on above: Performed By: #### U MICRO, ERUR ####[facility] Sdsnsdaocb[address] [place] [id number]. Nahed Yañez Nitrite Ql (U) Negative Normal NEGATIVE [facility] Comment on above: Performed By: #### U MICRO, ERUR ####[facility] Nzfy[address]df[address] [place] [address]Dr. Nahed Yañez pH (U) 7.0 [pH] Normal 5-9 [facility] Comment on above: Performed By: #### U MICRO, ERUR ####[facility] Hbkohkfggu88[address] [place] [address]Dr. Nahed Yañez SPEC GRAVITY 1.020 Normal 1.005-<=1.02 5 [facility] Comment on above: Performed By: #### U MICRO, ERUR ####[facility] [address] [place], [place] [address]Dr. Nahed Yañez UA PROTEIN Negative Normal NEGATIVE/ TRACE [facility] Comment on above: Performed By: #### U MICRO, ERUR ####[facility] Saybvczhpk[address] [place], [place] [address]Dr. Nahed Yañez UR MICRO IND INDICATED Normal [facility] Comment on above: Performed By: #### U MICRO, ERUR ####[facility] Klxebzgvcc00[address] [place] [address]Dr. Nahed Yañez Urobilinogen Qn (U) 0.2 {Alem'U}/dL Normal 0.2 - 1. 0 [facility] Comment on above: Performed By: #### U MICRO, ERUR ####[facility] Apefqccmgb[address] [place], [place] [address]Dr. Nahed Yañez LIPID PROFILEon 07-27-2022 CHOL-HDL RATIO NORM SEE BELOW Normal [facility] Comment on above: Result Comment: 3.3 - 4.4 LOW RISK 4.4 - 7.1 AVERAGE RISK 7.1 - 11.0 MODERATE RISK >11.0 HIGH RISK Performed By: #### M G, LIPID ####[facility] S[address]osv[address] [place], [place] [address]Fa. Rosemarieashley Yañez Cholesterol [Mass/Vol] 181 mg/dL Normal <=200 [facility] Comment on above: Performed By: #### M G, LIPID ####[facility] Sjjjjot[address] [place], [place] [address]Wz. Nahed Yañez Cholesterol in HDL [Mass/Vol] 87 mg/dL Critically high 40-60 [facility] Comment on above: Performed By: #### Pablo Moore, LIPID ####[facility] Uisbkybsob32[address] [place] [phone]. Nahed Yañez Cholesterol in LDL [Mass/Vol] 78.6 mg/dL Normal [facility] Comment on above: Performed By: #### Pablo Moore, LIPID ####[facility] Vwgouzyngi1587 [place] [phone]. Nahed Yañez Cholesterol.total/Chol esterol in HDL [Mass ratio] 2.1 {ratio} Normal [facility] Comment on above: Performed By: #### Pablo Moore, LIPID ####[facility] Epqkdgcler58[address] [place] [phone]. Nahed Yañez HDL NORMAL > or = 60 mg/dl - LO W CARDIOVASCULAR RISK <40 mg/dl - HIGH CARDIOVASCULAR RISK Normal [facility] Comment on above: Performed By: #### Pablo Moore, LIPID ####[facility] Zgulsydxkq[address] [place] [phone]. Nahed Yañez LDL CALC NORMAL SEE BELOW Normal [facility] Comment on above: Result Comment: <100 mg/dl OPTIMAL 100 - 129 mg/dl NEAR OR ABOVE OPTIMAL 130 - 159 mg/dl BORDERLINE HIGH 160 - 189 mg/dl HIGH >190 mg/dl VERY HIGH Performed By: #### Pablo G, LIPID ####[facility] Wtlvsfkygl58[address] [place] [phone]. Nahed Yañez Triglyceride [Mass/Vol] 77 mg/dL Normal <=150 [facility] Comment on above: Performed By: #### Pablo Moore, LIPID ####[facility] Eovttwwdld[address] [place] [address]Dr. Nahed Yañez VLDL CALC 15.4 mg/dL Normal [facility] Comment on above: Performed By: #### M G, LIPID ####[facility] Fnlzrnlbey4557 [place] [address]Dr. Nahed Yañez MAGNESIUMon 07-27-2022 Magnesium [Mass/Vol] 1.7 mg/dL Critically low 1.8-2.4 [facility] Comment on above: Performed By: #### M G, LIPID ####[facility] Slmmhwnmvu[address] [place], [place] [address]Dr. Nahed Yañez POINT OF CARE GLUCOSEon 07-12 Glucose [Mass/Vol] 276 mg/dL Critically high 74-106 [facility] Comment on above: Performed By: #### P OCGLUC ####[facility] Ijzciumjvw[address] [place], [place] [address]Dr. Nahed Yañez Glucose [Mass/Vol] 143 mg/dL Critically high 74-106 [facility] Comment on above: Performed By: #### P OCGLUC ####[facility] Clodiaqahi93[address] [place], [place] [address]Dr. Nahed Yañez Glucose [Mass/Vol] 117 mg/dL Critically high 74-106 [facility] Comment on above: Performed By: #### P OCGLUC ####[facility] Bsivjmbnla[address] [place] [address]Dr. Nahed Yañez PROF CHEM 8 (BAS METB)on Anion gap [Moles/Vol] 11.1 mmol/L Normal [facility] Comment on above: Performed By: #### B MP, HSTROPN ####[facility] Ysfplenbrw[address] [place], [place] [address]Dr. Rosemarieashley Yañez Calcium [Mass/Vol] 9.6 mg/dL Normal 8.5-10.1 [facility] Comment on above: Performed By: #### B MP, HSTROPN ####[facility] Ajnppjwqki9[address] [place] [address]Dr. Nahed Yañez Chloride [Moles/Vol] 99 mmol/L Normal 98-107 [facility] Comment on above: Performed By: #### B RENZO, HSTROPN ####[facility] Cwdpmsrjvj35[address] [place] [address]Dr. Nahed Yañez CO2 [Moles/Vol] 27.8 mmol/L Normal 21.0-32.0 [facility] Comment on above: Performed By: #### B RENZO, HSTROPN ####[facility] Wdchxxdsfn[address] [place], [place] [address]Dr. Nahed Yañez Creatinine [Mass/Vol] 0.90 mg/dL Normal 0.55-1.02 [facility] Comment on above: Performed By: #### B RENZO, HSTROPN ####[facility] Vsfypmqmwf[address] [place], [place] [address]Dr. Nahed Yañez EGFR-AF GREEK >60 Normal >=60 [facility] Comment on above: Performed By: #### Mery MULLER, HSTROPN ####[facility] Ltbgkzibmn[address] [place], [place] [address]Dr. Nahed Yañez EGFR-NON AF GREEK >60 Normal >=60 [facility] Comment on above: Performed By: #### Mery MULLER, HSTROPN ####[facility] Lczgmjqziz38[address] [place], [place] [address]Dr. Nahed Yañez Glucose [Mass/Vol] 133 mg/dL Critically high 74-106 [facility] Comment on above: Performed By: #### Mery MULLER, HSTROPN ####[facility] Vqhoiolvyw[address] [place], [place] [address]Dr. Nahed Yañez Potassium [Moles/Vol] 3.9 mmol/L Normal 3.5-5.1 [facility] Comment on above: Performed By: #### Mery MULLER, HSTROPN ####[facility] Wmbeozreqk14[address] [place], [place] [address]Dr. Nahed Yañez Sodium [Moles/Vol] 134 mmol/L Critically low 136-145 [facility] Comment on above: Performed By: #### B RENZO, HSTROPN ####[facility] [address] [place] [address]Uy. Nahed Yañez Urea nitrogen [Mass/Vol] 9.0 mg/dL Normal 7.0-18.0 [facility] Comment on above: Performed By: #### B MP, HSTROPN ####[facility] Xhpvxcpxkp2084 [place] [phone]. Nahed Yañez Urea nitrogen/Creatinine [Mass ratio] 10.0 mg/mg Normal [facility] Comment on above: Performed By: #### B MP, HSTROPN ####[facility] Ipdvhhsyfh9990 [place] [phone]. Nahed Yañez TROPONIN, HIGH SENSITIVITYon 07-27-2022 HSTROP 40.7 pg/mL Normal 4.0-51.3 [facility] Comment on above: Result Comment: CUT- OFF POINTS HAVE BEEN ESTABLISHED BASED ON THE FOURTH UNIVERSAL DEFINITIONS OF MYOCARDIALINFARCTION. THE UPPER REFERENCE LIMIT (URL) OF TROPONIN, DEFINED THE 99TH PERCENTILE OFcTnI DISTRIBUTION IN A REFERENCE POPULATION, HAS BEEN CONFIRMED THE DECISION THRESHOLDFOR SD DIAGNOSIS. Performed By: #### H STROPN ####[facility] Nvq[address]ymdpw3[address] [place] [phone]. Nahed Yañez HSTROP 42.5 pg/mL Normal 4.0-51.3 [facility] Comment on above: Result Comment: CUT- OFF POINTS HAVE BEEN ESTABLISHED BASED ON THE FOURTH UNIVERSAL DEFINITIONS OF MYOCARDIALINFARCTION. THE UPPER REFERENCE LIMIT (URL) OF TROPONIN, DEFINED THE 99TH PERCENTILE OFcTnI DISTRIBUTION IN A REFERENCE POPULATION, HAS BEEN CONFIRMED THE DECISION THRESHOLDFOR SD DIAGNOSIS. Performed By: #### H STROPN ####[facility] Hzohtifxrz7[address] [place] [phone]. Nahed Yañez HSTROP 50.8 pg/mL Normal 4.0-51.3 [facility] Comment on above: Result Comment: CUT- OFF POINTS HAVE BEEN ESTABLISHED BASED ON THE FOURTH UNIVERSAL DEFINITIONS OF MYOCARDIALINFARCTION. THE UPPER REFERENCE LIMIT (URL) OF TROPONIN, DEFINED THE 99TH PERCENTILE OFcTnI DISTRIBUTION IN A REFERENCE POPULATION, HAS BEEN CONFIRMED THE DECISION THRESHOLDFOR SD DIAGNOSIS. Performed By: #### H STROPN ####[facility] Uedwcevkzq4736 [place] [phone]. Nahed Yañez HSTROP 46.3 pg/mL Normal 4.0-51.3 [facility] Comment on above: Result Comment: CUT- OFF POINTS HAVE BEEN ESTABLISHED BASED ON THE FOURTH UNIVERSAL DEFINITIONS OF MYOCARDIALINFARCTION. THE UPPER REFERENCE LIMIT (URL) OF TROPONIN, DEFINED THE 99TH PERCENTILE OFcTnI DISTRIBUTION IN A REFERENCE POPULATION, HAS BEEN CONFIRMED THE DECISION THRESHOLDFOR SD DIAGNOSIS. Performed By: #### H STROPN, TSH ####[facility] Zprumdbsbq26[address] [place] [phone]. Nahed Yañez HSTROP 54.2 pg/mL Critically high 4.0-51.3 [facility] Comment on above: Result Comment: CUT- OFF POINTS HAVE BEEN ESTABLISHED BASED ON THE FOURTH UNIVERSAL DEFINITIONS OF MYOCARDIALINFARCTION. THE UPPER REFERENCE LIMIT (URL) OF TROPONIN, DEFINED THE 99TH PERCENTILE OFcTnI DISTRIBUTION IN A REFERENCE POPULATION, HAS BEEN CONFIRMED THE DECISION THRESHOLDFOR SD DIAGNOSIS. Performed By: #### B MP, HSTROPN ####[facility] Zlppjuyppc026[address] [place] [phone]. Nahed Yañez TSHon 07-27-2022 TSH 1.566 uIU/mL Normal 0.358-3.[address] [facility] Comment on above: Performed By: #### H STROPN, TSH ####[facility] Rghcybiapv4867 [place] [phone]. Nahed Yañez URINE MICROSCOPIC ONLYon BACTERIA NONE SEEN Normal NONE SEEN [facility] Comment on above: Performed By: #### U MICRO, ERUR ####[facility] Wuplxqwkpc98[address] [place] [phone]. Nahed Yañez Bacteria identified Cx Nom (U) NOT INDICATED Normal [facility] Comment on above: Performed By: #### U MICRO, ERUR ####[facility] Imlzaahxvl8158 [place] [phone]. Nahed Yañez CAST NONE SEEN Normal NONE SEEN [facility] Comment on above: Performed By: #### U MICRO, ERUR ####[facility] Monxbginvn5016 [place] [address]Dr. Nahed Yañez Crystals LM Nom (Urine sed) NONE SEEN Normal NONE SEEN [facility] Comment on above: Performed By: #### U MICRO, ERUR ####[facility] Dfslychdpi1798 [place] [address]Dr. Nahed Yañez Epithelial cells LM Ql (Urine sed) FEW Abnormal NONE SEEN /RARE [facility] Comment on above: Performed By: #### U MICRO, ERUR ####[facility] Ywrzobrktw[address] [place], [place] [address]Dr. Nahed Yañez MUCOUS NONE SEEN Normal NONE SEEN [facility] Comment on above: Performed By: #### U MICRO, ERUR ####[facility] Koffkbpgve[address] [place], [place] [address]Dr. Nahed Yañez RBC 0-2 Normal 0-2 [facility] Comment on above: Performed By: #### U MICRO, ERUR ####[facility] Oahaillbra[address] [place], [place] [address]Dr. Nahed Yañez WBC NONE SEEN Normal NONE SEEN [facility] Comment on above: Performed By: #### U MICRO, ERUR ####[facility] Mlmbgfshfw4[address] [place], [place] [address]Dr. Nahed Yañez XR CHEST 1 Von 07-27-2022 XR CHEST 1 V Normal [facility] INSULINon 05-09-2022 Insulin 21.1 uIU/mL Normal 2.6-24.9 [facility] Comment on above: Performed By: #### I NSULIN ####[facility] Qiwhghbbjb8462[address] [place], [place] [address]Dr. Nahed Yañez BNPon 05-08-2022 Natriuretic peptide B (Bld) [Mass/Vol] 58.0 pg/mL Normal <=900.0 [facility] Comment on above: Performed By: #### B FRUIT COORDINATOR, LIPID, T7, TSH, CMP ####[facility] Cf[address]vuglsb38[address] [place] [address]Dr. Nahed Yañez CBC AUTO DIFFon 05-08-2022 BASO # 0.0 103/ul Normal 0.0-0.1 [facility] Comment on above: Performed By: #### C BC ####[facility] Pbjbxisjzl7821 [place] [phone]. Nahed Yañez Basophils/100 WBC (Bld) 0.4 % Normal 0.2-2.0 [facility] Comment on above: Performed By: #### C BC ####[facility] Tcgneaqanp[address] [place], [place] [address]Dr. Nahed Yañez EO # 0.3 103/ul Normal 0.0-0.7 [facility] Comment on above: Performed By: #### C BC ####[facility] Qyufuxqzsf[address] [place], [place] [address]Dr. Nahed Yañez Eosinophils/100 WBC (Bld) 4.2 % Normal 0.9-7.0 [facility] Comment on above: Performed By: #### C BC ####[facility] Ngfwiegcyw[address] [place], [place] [address]Dr. Nahed Yañez Erythrocyte distribution width (RBC) [Ratio] 14.0 % Normal 11.0-15.0 [facility] Comment on above: Performed By: #### C BC ####[facility] Rconmnxjtc[address] [place], [place] [address]Dr. Nahed Yañez Hematocrit (Bld) [Volume fraction] 43.8 % Normal 36.0-48.0 [facility] Comment on above: Performed By: #### C BC ####[facility] Hkcmsulbgp[address] [place], [place] [address]Dr. Nahed Yañez Hemoglobin (Bld) [Mass/Vol] 13.9 g/dL Normal 12.0-16.0 [facility] Comment on above: Performed By: #### C BC ####[facility] Rvwztxzycj[address] [place], [place] [address]Dr. Nahed Yañez IG # 0.01 10e3/ul Normal 0.00-0.03 [facility] Comment on above: Performed By: #### C BC ####[facility] Tcjdevlkat[address] [place], [place] [address]Dr. Nahed Yañez IG % 0.1 % Normal 0.0-0.5 [facility] Comment on above: Performed By: #### C BC ####[facility] Dozufkfkzi7632 [place] [phone]. Nahed Otilio LYMPH # 2.8 103/ul Normal 1.2-3.8 [facility] Comment on above: Performed By: #### C BC ####[facility] Decebztnsu29[address] [place] [phone]. Nahed Yañez Lymphocytes/100 WBC (Bld) 37.6 % Normal 20.5-60.0 [facility] Comment on above: Performed By: #### C BC ####[facility] Knwxvyabwn2765 [place] [phone]. Nahed Yñaez MANUAL DIFF REQ NO Normal [facility] Comment on above: Performed By: #### C BC ####[facility] Bobtbslxhk5698 [place] [phone]. Nahed Yañez MCH (RBC) [Entitic mass] 28.4 pg Normal 26.7-34.0 [facility] Comment on above: Performed By: #### C BC ####[facility] Kedngitdxg4795 [place] [phone]. Rosemarieashley Yañez MCHC (RBC) [Mass/Vol] 31.7 g/dL Normal 29.9-35.2 [facility] Comment on above: Performed By: #### C BC ####[facility] Hqpnnwhucr4059 [place] [phone]. Nahed Yañez MCV (RBC) [Entitic vol] 89.6 fL Normal 81.0-99.0 [facility] Comment on above: Performed By: #### C BC ####[facility] Meuekajfiv3219 [place] [phone]. Nahed Yañez MONO # 0.5 103/ul Normal 0.3-0.8 [facility] Comment on above: Performed By: #### C BC ####[facility] Kvqqhywizb2393 [place] [phone]. Nahed Yañez Monocytes/100 WBC (Bld) 6.8 % Normal 1.7-12.0 [facility] Comment on above: Performed By: #### C BC ####[facility] Vgirjzrjcx4019 [place] [phone]. Nahed Yañez NEUT # 3.7 103/ul Normal 1.4-6.5 [facility] Comment on above: Performed By: #### C BC ####[facility] Mmkjzovrjn1399 [place] [phone]. Nahed Yañez Neutrophils/100 WBC (Bld) 50.9 % Normal 43.0-75.0 [facility] Comment on above: Performed By: #### C BC ####[facility] Pdrehzmqsn1803 [place] [phone]. Nahed Yañez Platelet mean volume (Bld) [Entitic vol] 9.8 fL Normal 9.5-13.5 [facility] Comment on above: Performed By: #### C BC ####[facility] Hyyxtylzaq3546 [place] [phone]. Nahed Yañez PLT 306 103/ul Normal 150-450 [facility] Comment on above: Performed By: #### C BC ####[facility] Eknvijesvq8645 [place] [phone]. Nahed Yañez RBC 4.89 106/ul Normal 4.20-5.40 [facility] Comment on above: Performed By: #### C BC ####[facility] Osniitejyi[address] [place] [phone]. Nahed Yañez WBC 7.3 103/ul Normal 4.0-11.0 [facility] Comment on above: Performed By: #### C BC ####[facility] Xnaomgzqfw1400 [place] [phone]. Nahed Yañez FREE THYROXINE INDEX T7on FTI 2.92 Normal 1.30-4.50 [facility] Comment on above: Performed By: #### B FRUIT COORDINATOR, LIPID, T7, TSH, CMP ####[facility] Jqivrhoyje0426 [place] [phone]. Nahed Yañez T3U 34.0 % Normal 30.0-39.0 [facility] Comment on above: Performed By: #### B FRUIT COORDINATOR, LIPID, T7, TSH, CMP ####[facility] Prsyusgtuc7975 [place] [address]Dr. Nahed Yañez T4 [Mass/Vol] 8.60 ug/dL Normal 4.80-13.90 [facility] Comment on above: Performed By: #### B FRUIT COORDINATOR, LIPID, T7, TSH, CMP ####[facility] Snfdqixesh49[address] [place] [address]Dr. Nahed Yañez GLYCOHEMOGLOBIN A1Con 2021 ADA RECOMMENDATION SEE BELOW Normal [facility] Comment on above: Result Comment: ADA RECOMMENDED LIMIT 4.0 - 6.0 ADA THERAPEUTIC TARGET < 7.0 ACTION SUGGESTED > 7.0 Performed By: #### A 1C ####[facility] Hshxurcvbo[address] [place], [place] [address]Dr. Nahed Yañez Glucose [Mass/Vol] 146 mg/dL Normal [facility] Comment on above: Performed By: #### A 1C ####[facility] Ktcjssuhem[address] [place], [place] [address]Dr. Nahed Yañez HbA1c (Bld) [Mass fraction] 6.7 % Critically high 4.5-6.2 [facility] Comment on above: Performed By: #### A 1C ####[facility] Qzkljqbmko30[address] [place] [address]Dr. Nahed Yañez IRONon 05-08-2022 Iron [Mass/Vol] 76.0 ug/dL Normal 50.0-170.0 [facility] Comment on above: Performed By: #### V ITAD, IRON ####[facility] Hyjlouratu[address] [place] [address]Dr. Nahed Yañez LIPID PROFILEon 05-08-2022 CHOL-HDL RATIO NORM SEE BELOW Normal [facility] Comment on above: Result Comment: 3.3 - 4.4 LOW RISK 4.4 - 7.1 AVERAGE RISK 7.1 - 11.0 MODERATE RISK >11.0 HIGH RISK Performed By: #### B FRUIT COORDINATOR, LIPID, T7, TSH, CMP ####[facility] Actsdgrkim1926 [place] [phone]. Nahed Yañez Cholesterol [Mass/Vol] 167 mg/dL Normal <=200 [facility] Comment on above: Performed By: #### B FRUIT COORDINATOR, LIPID, T7, TSH, CMP ####[facility] Ovzvtsrwvm5233 [place] [phone]. Nahed Yañez Cholesterol in HDL [Mass/Vol] 63 mg/dL Critically high 40-60 [facility] Comment on above: Performed By: #### B FRUIT COORDINATOR, LIPID, T7, TSH, CMP ####[facility] Lqwqbeyrrs[address] [place], [place] [id number]. Nahed Yañez Cholesterol in LDL [Mass/Vol] 72.6 mg/dL Normal [facility] Comment on above: Performed By: #### B FRUIT COORDINATOR, LIPID, T7, TSH, CMP ####[facility] Zhkmhkahbc[address] [place], [place] [address]Dr. Nahed Yañez Cholesterol.total/Chol esterol in HDL [Mass ratio] 2.7 {ratio} Normal [facility] Comment on above: Performed By: #### B FRUIT COORDINATOR, LIPID, T7, TSH, CMP ####[facility] Nlgenhqfkl[address] [place], [place] [address]Dr. Nahed Yañez HDL NORMAL > or = 60 mg/dl - LO W CARDIOVASCULAR RISK <40 mg/dl - HIGH CARDIOVASCULAR RISK Normal [facility] Comment on above: Performed By: #### B FRUIT COORDINATOR, LIPID, T7, TSH, CMP ####[facility] Axqckyexpv[address] [place], [place] [address]Dr. Nahed Yañez LDL CALC NORMAL SEE BELOW Normal [facility] Comment on above: Result Comment: <100 mg/dl OPTIMAL 100 - 129 mg/dl NEAR OR ABOVE OPTIMAL 130 - 159 mg/dl BORDERLINE HIGH 160 - 189 mg/dl HIGH >190 mg/dl VERY HIGH Performed By: #### B FRUIT COORDINATOR, LIPID, T7, TSH, CMP ####[facility] Mqdkvsxhxe[address] [place], [place] [address]Dr. Nahed Yañez Triglyceride [Mass/Vol] 157 mg/dL Critically high <=150 [facility] Comment on above: Performed By: #### B FRUIT COORDINATOR, LIPID, T7, TSH, CMP ####[facility] Svvlzcpxbg7810 [place] [phone]. Nahed Yañez VLDL CALC 31.4 mg/dL Normal [facility] Comment on above: Performed By: #### B FRUIT COORDINATOR, LIPID, T7, TSH, CMP ####[facility] Drfxhmmvic3292 [place] [address]Dr. Nahed Yañez OCC BLD IMMUNO SCREENon 04-14 OCCULT BLOOD Negative Normal NEGATIVE [facility] Comment on above: Performed By: #### O BSCRN ####[facility] Esalbtmzox[address] [place] [address]Dr. Nahed Yañez PROF 14(COMP METB)on 022 Albumin [Mass/Vol] 3.7 g/dL Normal 3.4-5.0 [facility] Comment on above: Performed By: #### B FRUIT COORDINATOR, LIPID, T7, TSH, CMP ####[facility] Mlabkdmghl[address] [place], [place] [address]Dr. Nahed Yañez Albumin/Globulin [Mass ratio] 0.9 {ratio} Normal [facility] Comment on above: Performed By: #### B FRUIT COORDINATOR, LIPID, T7, TSH, CMP ####[facility] Qoisoppsjq[address] [place], [place] [address]Dr. Nahed Yañez ALP [Catalytic activity/Vol] 99 U/L Normal 46-116 [facility] Comment on above: Performed By: #### B FRUIT COORDINATOR, LIPID, T7, TSH, CMP ####[facility] Vylvvfbcrv5069 [place] [address]Dr. Nahed Yañez ALT [Catalytic activity/Vol] 20 U/L Normal 14-59 [facility] Comment on above: Performed By: #### B FRUIT COORDINATOR, LIPID, T7, TSH, CMP ####[facility] Kwuicujfks6023 [place] [address]Dr. Nahed Yañez Anion gap [Moles/Vol] 10.6 mmol/L Normal [facility] Comment on above: Performed By: #### B FRUIT COORDINATOR, LIPID, T7, TSH, CMP ####[facility] Lvpluvhegx8101 [place] [address]Dr. Nahed Yañez AST [Catalytic activity/Vol] 29 U/L Normal 15-37 [facility] Comment on above: Performed By: #### B FRUIT COORDINATOR, LIPID, T7, TSH, CMP ####[facility] Qvygrtpwba8975 [place] [address]Dr. Nahed Yañez Bilirubin [Mass/Vol] 0.4 mg/dL Normal 0.2-1.0 [facility] Comment on above: Performed By: #### B FRUIT COORDINATOR, LIPID, T7, TSH, CMP ####[facility] [address]ykxqazl[address] [place], [place] [address]Dr. Nahed Yañez Calcium [Mass/Vol] 9.3 mg/dL Normal 8.5-10.1 [facility] Comment on above: Performed By: #### B FRUIT COORDINATOR, LIPID, T7, TSH, CMP ####[facility] Linltlhgvz[address] [place], [place] [address]Dr. Nahed Yañez Chloride [Moles/Vol] 100 mmol/L Normal 98-107 [facility] Comment on above: Performed By: #### B FRUIT COORDINATOR, LIPID, T7, TSH, CMP ####[facility] F[address]qay[address] [place], [place] [address]Dr. Nahed Yañez CO2 [Moles/Vol] 31.4 mmol/L Normal 21.0-32.0 [facility] Comment on above: Performed By: #### B FRUIT COORDINATOR, LIPID, T7, TSH, CMP ####[facility] Aqpifyescq[address] [place], [place] [address]Dr. Nahed Yañez Creatinine [Mass/Vol] 1.01 mg/dL Normal 0.55-1.02 [facility] Comment on above: Performed By: #### B FRUIT COORDINATOR, LIPID, T7, TSH, CMP ####[facility] Qkvahmnrvn[address] [place], [place] [address]Dr. Nahed Yañez EGFR-AF GREEK >60 Normal >=60 [facility] Comment on above: Performed By: #### B FRUIT COORDINATOR, LIPID, T7, TSH, CMP ####[facility] Xqcfg[address]ksc[address] [place], [place] [address]Dr. Nahed Yañez EGFR-NON AF GREEK 56 mL/min/1.73m2 Critically low >=60 [facility] Comment on above: Performed By: #### B FRUIT COORDINATOR, LIPID, T7, TSH, CMP ####[facility] [address]swvdv[address] [place] [address]Dr. Nahed Yañez Globulin (S) [Mass/Vol] 3.9 g/dL Normal [facility] Comment on above: Performed By: #### B FRUIT COORDINATOR, LIPID, T7, TSH, CMP ####[facility] Pbptxjugnx3403 [place] [address]Dr. Nahed Yañez Glucose [Mass/Vol] 111 mg/dL Critically high 74-[address] [facility] Comment on above: Performed By: #### B FRUIT COORDINATOR, LIPID, T7, TSH, CMP ####[facility] Feamujftxd[address] [place], [place] [address]Dr. Nahed Yañez Potassium [Moles/Vol] 4.0 mmol/L Normal 3.5-5.1 [facility] Comment on above: Performed By: #### B FRUIT COORDINATOR, LIPID, T7, TSH, CMP ####[facility] Dlemcrqbop[address] [place], [place] [address]Dr. Nahed Yañez Protein [Mass/Vol] 7.6 g/dL Normal 6.4-8.2 [facility] Comment on above: Performed By: #### B FRUIT COORDINATOR, LIPID, T7, TSH, CMP ####[facility] Nzczdrpoqb[address] [place], [place] [address]Dr. Nahed Yñaez Sodium [Moles/Vol] 138 mmol/L Normal 136-145 [facility] Comment on above: Performed By: #### B FRUIT COORDINATOR, LIPID, T7, TSH, CMP ####[facility] Rbyxriyprc[address] [place], [place] [address]Dr. Nahed Yañez Urea nitrogen [Mass/Vol] 17.0 mg/dL Normal 7.0-18.0 [facility] Comment on above: Performed By: #### B FRUIT COORDINATOR, LIPID, T7, TSH, CMP ####[facility] Begoxxbrfr[address] [place], [place] [address]Dr. Nahed Yañez Urea nitrogen/Creatinine [Mass ratio] 16.8 mg/mg Normal [facility] Comment on above: Performed By: #### B FRUIT COORDINATOR, LIPID, T7, TSH, CMP ####[facility] Dycswxftuz[address] [place] [id number]. Nahed Yañez TSHon 05-08-2022 TSH 2.835 uIU/mL Normal 0.358-3.[address] [facility] Comment on above: Performed By: #### B FRUIT COORDINATOR, LIPID, T7, TSH, CMP ####[facility] Hpsnahnbau[address] [place] [id number]. Rosemarieashley Otilio VITAMIN D 25 OHon 05-08-2022 VIT D 25-OH 13.4 ng/mL Normal [facility] Comment on above: Performed By: #### V GRAEME, IRON ####[facility] Qnqasfwxoa38[address] [place] [address]Dr. Nahed Yañez VIT D RANGES SEE BELOW Normal [facility] Comment on above: Result Comment: <20 ng/mL Vit D deficient 20 - <30 ng/mL Vit D insufficient 30 - 100 ng/mL Vit D sufficient >100 ng/mL Potential Toxicity Performed By: #### Bianca BEDOLLA, IRON ####[facility] Ivhmufkbyq[address] [place] [address]Dr. Nahed Yañez CARDIAC FRANCISCO 3-6on 2 CK [Catalytic activity/Vol] 37 U/L Normal 26-192 [facility] Comment on above: Performed By: #### C MREP ####[facility] Erxxthcdph[address] [place], [place] [address]Dr. Nahed Yañez CK.MB [Mass/Vol] 0.79 ng/mL Normal <=3.60 [facility] Comment on above: Performed By: #### C MREP ####[facility] Jvztxrojjf80[address] [place] [address]Dr. Nahed Yañez HSTROP 55.3 pg/mL Critically high 4.0-51.3 [facility] Comment on above: Result Comment: CUT- OFF POINTS HAVE BEEN ESTABLISHED BASED ON THE FOURTH UNIVERSAL DEFINITIONS OF MYOCARDIALINFARCTION. THE UPPER REFERENCE LIMIT (URL) OF TROPONIN, DEFINED THE 99TH PERCENTILE OFcTnI DISTRIBUTION IN A REFERENCE POPULATION, HAS BEEN CONFIRMED THE DECISION THRESHOLDFOR SD DIAGNOSIS. Performed By: #### C MREP ####[facility] [address] [place], [place] [address]Uk. Nahed Yañez CK [Catalytic activity/Vol] 49 U/L Normal 26-192 [facility] Comment on above: Performed By: #### C MREP ####[facility] Lyrxoxzjmp[address] [place], [place] [address]Jy. Nahed Yañez CK.MB [Mass/Vol] 0.71 ng/mL Normal <=3.60 [facility] Comment on above: Performed By: #### C MREP ####[facility] Dvmxelsrvf[address] [place], [place] [address]Yu. Nahed Yañez HSTROP 62.6 pg/mL Critically high 4.0-51.3 [facility] Comment on above: Result Comment: CUT- OFF POINTS HAVE BEEN ESTABLISHED BASED ON THE FOURTH UNIVERSAL DEFINITIONS OF MYOCARDIALINFARCTION. THE UPPER REFERENCE LIMIT (URL) OF TROPONIN, DEFINED THE 99TH PERCENTILE OFcTnI DISTRIBUTION IN A REFERENCE POPULATION, HAS BEEN CONFIRMED THE DECISION THRESHOLDFOR SD DIAGNOSIS. Performed By: #### C MREP ####[facility] [address]sphnehcq[address] [place], [place] [address]Oh. Nahed Yañez Cov[facility]-19 PCR [facility]on 01-13 SARS-CoV-2 (COVID-19) RNA MIRNA+probe Ql (Unsp spec) Not detected Normal NOT DETECTED [facility] [...] for this test is supported by the [place] of Health and Human Service's declaration that [...] longer be used). Performed By: #### C [facility] ####[facility] Wybltnwgpg[address] [place] [id number]. Nahed Yañez ECHO LIMITED STUDYon 022 ECHO LIMITED STUDY Normal [facility] GLYCOHEMOGLOBIN A1Con 2021 ADA RECOMMENDATION SEE BELOW Normal [facility] Comment on above: Result Comment: ADA RECOMMENDED LIMIT 4.0 - 6.0 ADA THERAPEUTIC TARGET < 7.0 ACTION SUGGESTED > 7.0 Performed By: #### A 1C ####[facility] X[address]hsp[address] [place], [place] [address]Dr. Nahed Yañez Glucose [Mass/Vol] 140 mg/dL Normal [facility] Comment on above: Performed By: #### A 1C ####[facility] K[address]pnlazx[address] [place], [place] [address]Dr. Nahed Yañez HbA1c (Bld) [Mass fraction] 6.5 % Critically high 4.5-6.2 [facility] Comment on above: Performed By: #### A 1C ####[facility] Ocf[address]qad[address] [place], [place] [address]Dr. Nahed Yañez LIPID PROFILEon 01-31-2022 CHOL-HDL RATIO NORM SEE BELOW Normal [facility] Comment on above: Result Comment: 3.3 - 4.4 LOW RISK 4.4 - 7.1 AVERAGE RISK 7.1 - 11.0 MODERATE RISK >11.0 HIGH RISK Performed By: #### L IPID ####[facility] Gielstqtew[address] [place] [address]Dr. Nahed Yañez Cholesterol [Mass/Vol] 152 mg/dL Normal <=200 Th [facility] Comment on above: Performed By: #### L IPID ####[facility] Jhpxowktys[address] [place] [address]Dr. Nahed Yañez Cholesterol in HDL [Mass/Vol] 74 mg/dL Critically high 40-60 [facility] Comment on above: Performed By: #### L IPID ####[facility] Lunhigqxea6[address] [place] [id number]. Nahed Yañez Cholesterol in LDL [Mass/Vol] 62.8 mg/dL Normal [facility] Comment on above: Performed By: #### L IPID ####[facility] Cccqmqpjab4376 [place] [id number]. Nahed Yañez Cholesterol.total/Chol esterol in HDL [Mass ratio] 2.1 {ratio} Normal [facility] Comment on above: Performed By: #### L IPID ####[facility] Ztodrelttj[address] [place] [id number]. Nahed Yañez HDL NORMAL > or = 60 mg/dl - LO W CARDIOVASCULAR RISK <40 mg/dl - HIGH CARDIOVASCULAR RISK Normal [facility] Comment on above: Performed By: #### L IPID ####[facility] Ugwliiyscu[address] [place] [address]Dr. Nahed Yañez LDL CALC NORMAL SEE BELOW Normal [facility] Comment on above: Result Comment: <100 mg/dl OPTIMAL 100 - 129 mg/dl NEAR OR ABOVE OPTIMAL 130 - 159 mg/dl BORDERLINE HIGH 160 - 189 mg/dl HIGH >190 mg/dl VERY HIGH Performed By: #### L IPID ####[facility] Vbfklxxgfb034[address] [place] [id number]. Nahed Yañez Triglyceride [Mass/Vol] 76 mg/dL Normal <=150 [facility] Comment on above: Performed By: #### L IPID ####[facility] Ngqgmwomzk68[address] [place] [phone]. Nahed Yañez VLDL CALC 15.2 mg/dL Normal [facility] Comment on above: Performed By: #### L IPID ####[facility] Viazruwwka[address] [place] [id number]. Nahed Yañez XR CHEST 1 Von 01-31-2022 XR CHEST 1 V Normal [facility] BNPon 01-30-2022 Natriuretic peptide B (Bld) [Mass/Vol] 150.0 pg/mL Normal <=900.0 [facility] Comment on above: Performed By: #### B MP, BNP, CMADM ####[facility] Prvgykizjs[address] [place] [address]Dr. Nahed Yañez CARDIAC FRANCISCO ADMITon 022 CK [Catalytic activity/Vol] 88 U/L Normal 26-192 [facility] Comment on above: Performed By: #### B MP, BNP, CMADM ####[facility] Uwwzwownef35[address] [place] [address]Dr. Nahed Yañez CK.MB [Mass/Vol] 1.26 ng/mL Normal <=3.60 [facility] Comment on above: Performed By: #### B MP, BNP, CMADM ####[facility] Hncvkvjalq[address] [place] [address]Dr. Nahed Otilio HSTROP 69.3 pg/mL Critically high 4.0-51.3 [facility] Comment on above: Result Comment: CUT- OFF POINTS HAVE BEEN ESTABLISHED BASED ON THE FOURTH UNIVERSAL DEFINITIONS OF MYOCARDIALINFARCTION. THE UPPER REFERENCE LIMIT (URL) OF TROPONIN, DEFINED THE 99TH PERCENTILE OFcTnI DISTRIBUTION IN A REFERENCE POPULATION, HAS BEEN CONFIRMED THE DECISION THRESHOLDFOR SD DIAGNOSIS. Performed By: #### B MP, BNP, CMADM ####[facility] Sctbvxojga[address] [place] [address]Dr. Nahed Otilio ANDRE 59 ng/mL Normal 9-82 [facility] Comment on above: Performed By: #### B MP, BNP, CMADM ####[facility] Styhyyjciy[address] [place] [address]Dr. Nahed Otilio CBC AUTO DIFFon 01-30-2022 BASO # 0.0 103/ul Normal 0.0-0.1 [facility] Comment on above: Performed By: #### C BC ####[facility] Opmzpcxiuy[address] [place] [address]Dr. Rosemarieashley Yañez Basophils/100 WBC (Bld) 0.2 % Normal 0.2-2.0 [facility] Comment on above: Performed By: #### C BC ####[facility] Ypomzhfeap[address] [place] [address]Dr. Nahed Yañez EO # 0.1 103/ul Normal 0.0-0.7 [facility] Comment on above: Performed By: #### C BC ####[facility] Iwjpmxotlx1136 [place] [address]Dr. Nahed Yañez Eosinophils/100 WBC (Bld) 0.8 % Critically low 0.9-7.0 [facility] Comment on above: Performed By: #### C BC ####[facility] Ckqnfxsbev7024 [place] [address]Dr. Nahed Yañez Erythrocyte distribution width (RBC) [Ratio] 14.9 % Normal 11.0-15.0 [facility] Comment on above: Performed By: #### C BC ####[facility] Uvvvnfjeny[address] [place], [place] [address]Dr. Nahed Yañez Hematocrit (Bld) [Volume fraction] 45.8 % Normal 36.0-48.0 [facility] Comment on above: Performed By: #### C BC ####[facility] [address]ht[address] [place], [place] [address]Dr. Nahed Yañez Hemoglobin (Bld) [Mass/Vol] 14.7 g/dL Normal 12.0-16.0 [facility] Comment on above: Performed By: #### C BC ####[facility] [address]lwvtcywta[address] [place], [place] [address]Dr. Nahed Yañez IG # 0.07 10e3/ul Critically high 0.00-0.03 [facility] Comment on above: Performed By: #### C BC ####[facility] Wzcfzmphkt[address] [place] [address]Dr. Nahed Yañez IG % 0.4 % Normal 0.0-0.5 [facility] Comment on above: Performed By: #### C BC ####[facility] Srjxysjvmd[address] [place], [place] [address]Dr. Nahed Yañez LYMPH # 2.3 103/ul Normal 1.2-3.8 [facility] Comment on above: Performed By: #### C BC ####[facility] [address] [place] [address]. Nahed Yañez Lymphocytes/100 WBC (Bld) 12.5 % Critically low 20.5-60.0 [facility] Comment on above: Performed By: #### C BC ####[facility] Wqbqpaqpsw25[address] [place] [address]Dr. Nahed Yañez MANUAL DIFF REQ NO Normal [facility] Comment on above: Performed By: #### C BC ####[facility] Bseyhpzzdy9134 [place] [address]Dr. Nahed Yañez MCH (RBC) [Entitic mass] 28.0 pg Normal 26.7-34.0 [facility] Comment on above: Performed By: #### C BC ####[facility] Kfuulgjobq8[address] [place], [place] [address]Dr. Nahed Yañez MCHC (RBC) [Mass/Vol] 32.1 g/dL Normal 29.9-35.2 [facility] Comment on above: Performed By: #### C BC ####[facility] Vivupikptl[address] [place], [place] [address]Dr. Nahed Yañez MCV (RBC) [Entitic vol] 87.2 fL Normal 81.0-99.0 [facility] Comment on above: Performed By: #### C BC ####[facility] Qrlovfnzur[address] [place], [place] [address]Dr. Nahed Yañez MONO # 0.9 103/ul Critically high 0.3-0.8 [facility] Comment on above: Performed By: #### C BC ####[facility] Lylzcjxssb[address] [place], [place] [address]Dr. Nahed Yañez Monocytes/100 WBC (Bld) 5.1 % Normal 1.7-12.0 [facility] Comment on above: Performed By: #### C BC ####[facility] Nmggbvjeok[address] [place], [place] [address]Dr. Nahed Yañez NEUT # 14.6 103/ul Critically high 1.4-6.5 [facility] Comment on above: Performed By: #### C BC ####[facility] Bhqphaisri[address] [place], [place] [address]Dr. Nahed Yañez Neutrophils/100 WBC (Bld) 81.0 % Critically high 43.0-75.0 [facility] Comment on above: Performed By: #### C BC ####[facility] Kbpeilrnuh2472 [place] [address]Dr. Nahed Yañez Platelet mean volume (Bld) [Entitic vol] 10.3 fL Normal 9.5-13.5 [facility] Comment on above: Performed By: #### C BC ####[facility] Nbckceseve[address]47 [place] [address]Dr. Nahed Yañez PLT 280 103/ul Normal 150-450 [facility] Comment on above: Performed By: #### C BC ####[facility] Kplldiwwfp4730 [place] [address]Dr. Nahed Yañez RBC 5.25 106/ul Normal 4.20-5.40 [facility] Comment on above: Performed By: #### C BC ####[facility] Tgpjqaqcoz[address] [place] [address]Dr. Nahed Yañez WBC 18.1 103/ul Critically high 4.0-11.0 [facility] Comment on above: Performed By: #### C BC ####[facility] Cwsksgpthm4087 [place] [address]Dr. Nahed Yañez PROF CHEM 8 (BAS METB)on Anion gap [Moles/Vol] 13.5 mmol/L Normal [facility] Comment on above: Performed By: #### B MP, BNP, CMADM ####[facility] Qepubctuhj[address] [place] [address]Dr. Nahed Yañez Calcium [Mass/Vol] 9.5 mg/dL Normal 8.5-10.1 [facility] Comment on above: Performed By: #### B MP, BNP, CMADM ####[facility] Bcqmqfqkoo220[address] [place] [address]Dr. Nahed Yañez Chloride [Moles/Vol] 102 mmol/L Normal 98-107 [facility] Comment on above: Performed By: #### B MP, BNP, CMADM ####[facility] Tlkgkukvlc3[address] [place] [address]Dr. Nahed Yañez CO2 [Moles/Vol] 26.6 mmol/L Normal 21.0-32.0 [facility] Comment on above: Performed By: #### B MP, BNP, CMADM ####[facility] Jzivkymguy30[address] [place] [address]Dr. Nahed Yañez Creatinine [Mass/Vol] 1.06 mg/dL Critically high 0.55-1.02 [facility] Comment on above: Performed By: #### B MP, BNP, CMADM ####[facility] Kyiyifnbub[address] [place] [address]Dr. Nahed Yañez EGFR-AF GREEK >60 Normal >=60 [facility] Comment on above: Performed By: #### B MP, BNP, CMADM ####[facility] Rdgxujugye[address] [place], [place] [address]Dr. Rosemarieashley Otilio EGFR-NON AF GREEK 53 mL/min/1.73m2 Critically low >=60 [facility] Comment on above: Performed By: #### B MP, BNP, CMADM ####[facility] Gemsxfjrhf[address] [place], [place] [address]Dr. Nahed Yañez Glucose [Mass/Vol] 108 mg/dL Critically high 74-106 [facility] Comment on above: Performed By: #### B MP, BNP, CMADM ####[facility] Ldxnoaqxsp6470 [place] [address]Dr. Nahed Yañez Potassium [Moles/Vol] 4.1 mmol/L Normal 3.5-5.1 [facility] Comment on above: Performed By: #### B MP, BNP, CMADM ####[facility] Siwalknvff[address] [place], [place] [address]Dr. Nahed Yañez Sodium [Moles/Vol] 138 mmol/L Normal 136-145 [facility] Comment on above: Performed By: #### B MP, BNP, CMADM ####[facility] Mhfpdksvde7065 [place] [address]Dr. Nahed Yañez Urea nitrogen [Mass/Vol] 9.0 mg/dL Normal 7.0-18.0 [facility] Comment on above: Performed By: #### B MP, BNP, CMADM ####[facility] [address]ut[address]cjh[address] [place], [place] [address]. Nahed Yañez Urea nitrogen/Creatinine [Mass ratio] 8.5 mg/mg Normal [facility] Comment on above: Performed By: #### B MP, BNP, CMADM ####[facility] Udhbx[address]odsw[address] [place], [place] [address]Pn. Nahed Yañez Cardiovascular Lab Reporton 11-03-2021 Cardiovascular Lab Report [facility] Patient Name: Vivian Vann [facility] MR #: [id number] Physician: Gasper Avendano Department of M.D. Medicine Service Date: 11/02/2021 Division of Birthdate: 1960 Cardiology Room #: 4AB [id number] [facility] [place] [address] Cardiovascular Laboratory Report FINAL IMPRESSIONS: 1. Severe, [...] anterior descending coronary artery, placement of a 6-Belizean MynxGrip closure device. METHODS: After risks, benefits, and alternatives were explained, written informed consent was obtained. The patient was prepped and draped in usual sterile fashion over both groins. Using 1% lidocaine solution, local infiltration anesthesia was achieved over the right groin. Under ultrasound guidance, a micropuncture kit was used to access the right common femoral artery. This was upsized to a 6-Belizean 11 cm sheath. Angiography via the 6-Belizean sheath was performed. Bilateral selective coronary angiography was performed using JL4 and JR4 catheters. After reviewing the images, it was elected to proceed with an interventional procedure. A 6-Belizean XB3.5 guide catheter was advanced over a [...] artery, angiography was repeated initially using a 6-Belizean 3DRC catheter and subsequently using a 4-Belizean JR4 catheter. After administration of intracoronary nitroglycerin, the concerning lesion almost completely resolved. There was a residual mild stenosis. All catheters removed. A 6-Belizean MynxGrip closure device was deployed per protocol [...] and anatomy suitable for closure device. INDICATION: Jkt-RX-lpykpswsy myocardial infarction. Electronically Signed by: Gasper Avendano M.D. 11/21/2021 02:07 P Gasper Avendano M.D (more content not included)... Normal [facility] CBC COMPLETE BLOOD COUNTon 0 11-02-2021 Erythrocyte distribution width (RBC) [Ratio] 14.7 % Normal 11.5-15.0 [facility] Comment on above: Order Comment: No: D o not add to previous draw Performed By: #### 3 5200, 26838 #### [facility] [address] [facility]. [address] Hematocrit (Bld) [Volume fraction] 34.5 % Low 36.0-45.0 [facility] Comment on above: Order Comment: No: D o not add to previous draw Performed By: #### 3 6310, 80146 #### [facility] [address] [facility] [place] [address], [facility] Hemoglobin (Bld) [Mass/Vol] 10.6 g/dL Low 12.0-15.0 [facility] Comment on above: Order Comment: No: D o not add to previous draw Performed By: #### 3 5200, 15342 #### [facility] [address] [facility] [place] [id number], [facility] MCH (RBC) [Entitic mass] 28.1 pg Normal 27.0-33.0 [facility] Comment on above: Order Comment: No: D o not add to previous draw Performed By: #### 3 0, 60038 #### [facility] [address] [place] [address], [facility] MCHC (RBC) [Mass/Vol] 30.7 g/dL Low 32.0-35.0 [facility] Comment on above: Order Comment: No: D o not add to previous draw Performed By: #### 3 0, 66494 #### [facility] [address] [place] [address], [facility] MCV (RBC) [Entitic vol] 91.5 fL Normal 82.0-98.0 [facility] Comment on above: Order Comment: No: D o not add to previous draw Performed By: #### 3 5199, 56002 #### [facility] [address] [place] [address], [facility] Nucleated RBC/100 WBC (Bld) [Ratio] 0 % Normal 0-0 [facility] Comment on above: Order Comment: No: D o not add to previous draw Performed By: #### 3 5199, 60127 #### [facility] [address] [facility] [place] [address], [facility] PLAT CNT 219 10*3/uL Normal 150-400 [facility] Comment on above: Order Comment: No: D o not add to previous draw Performed By: #### 3 5199, 63684 #### [facility] [address] [facility] [place] [address], [facility] RBC (Bld) [#/Vol] 3.77 10*6/uL Low 3.80-5.00 [facility] Comment on above: Order Comment: No: D o not add to previous draw Performed By: #### 3 5199, 11406 #### [facility] [address] [place] [address], [facility] WBC (Bld) [#/Vol] 13.64 10*3/uL High 4.00-10.60 [facility] Comment on above: Order Comment: No: D o not add to previous draw Performed By: #### 3 5200, 81771 #### [facility] [address] [place] [address], [facility] HEMOGLOBIN A1Con 11-02-2021 Glucose [Moles/Vol] 140 mmol/L Normal [facility] Comment on above: Order Comment: No: D o not add to previous draw Performed By: #### 3 1791 #### [facility] [address] [place] [address], [facility] HbA1c (Bld) [Mass fraction] 6.5 % High 4.0-6.0 [facility] Comment on above: Order Comment: No: D o not add to previous draw Performed By: #### 3 1791 #### [facility] [address] [place] [address], [place] LIPID PROFILEon 11-02-2021 Cholesterol [Mass/Vol] 171 mg/dL Normal 120-200 Th e [facility] Comment on above: Order Comment: No: D o not add to previous draw Result Comment: CHOL ESTEROL REFERENCE RANGE: 20 YEARS AND OLDER CARDIOVASCULAR RISK Less than 200 mg/dl Low Risk 200 to 239 mg/dl Borderline Risk 240 mg/dl and greater High Risk Performed By: #### 3 5200, 90267 #### [facility] [address] [place] [address], [facility] Cholesterol in HDL [Mass/Vol] 57 mg/dL Normal 23-92 The [facility] Comment on above: Order Comment: No: D o not add to previous draw Result Comment: Slig ht variation in normal range could be due to gender and/or age. HDL CHOLESTEROL REFERENCE RANGE: 20 years and older Cardiovascular Risk > or =60 mg/dL Desirable 40 TO 59 mg/dL Low Risk <40 mg/dL High Risk Performed By: #### 3 5200, 48765 #### [facility] [address] [place] [address], [place] Cholesterol in LDL [Mass/Vol] 89 mg/dL Normal 0-130 The [facility] Comment on above: Order Comment: No: D o not add to previous draw Result Comment: LDL IS A CALCULATION LDL IS ONLY VALID IF THE TRIG IS LESS THAN 400. Performed By: #### 3 5200, 41616 #### [facility] [address] Cholesterol.total/Chol esterol in HDL [Mass ratio] 3.0 {ratio} Normal .0-4.5 The [facility] Comment on above: Order Comment: No: D o not add to previous draw Performed By: #### 3 5200, 12172 #### [facility] [address] NON-HDL CHOLESTEROL 114 mg/dL Normal The [facility] Comment on above: Order Comment: No: D o not add to previous draw Performed By: #### 3 5200, 04623 #### [facility] [address] Triglyceride [Mass/Vol] 124 mg/dL Normal 40-149 The [facility] Comment on above: Order Comment: No: D o not add to previous draw Result Comment: TRIG LYCERIDE REFERENCE RANGE: 20 YEARS AND OLDER CARDIOVASCULAR RISK LESS THAN 150 mg/dl LOW RISK 150 TO 199 mg/dl BORDERLINE RISK 200 mg/dl AND GREATER HIGH RISK Performed By: #### 3 5200, 09819 #### [facility] [address] [place] [address], [facility] VLDL CHOL 25 mg/dL Normal 0-40 The [facility] Comment on above: Order Comment: No: D o not add to previous draw Performed By: #### 3 5200, 57043 #### [facility] [address] TROPONIN-Ion 11-02-2021 Troponin I.cardiac [Mass/Vol] 0.14 ng/mL Critically high 0.00-0.04 The [facility] Comment on above: Result Comment: M-NM EVIOUS CRITICAL RESULT REFERENCE RANGES: 0.00 - 0.04 ng/ml NORMAL 0.05 - 0.50 ng/ml INDETERMINATE > 0.50 ng/ml CONSISTENT WITH AN M.I. Performed By: #### 3 5200, 72956 #### [facility] [address] Troponin I.cardiac [Mass/Vol] 0.19 ng/mL Critically high 0.00-0.04 The [facility] Comment on above: Order Comment: No: D o not add to previous draw Result Comment: M-NM EVIOUS CRITICAL RESULT REFERENCE RANGES: 0.00 - 0.04 ng/ml NORMAL 0.05 - 0.50 ng/ml INDETERMINATE > 0.50 ng/ml CONSISTENT WITH AN M.I. Performed By: #### 3 5200 #### [facility] [address] TYPE AND SCREENon 11-02-2021 ABO INTERPRETATION O Normal The [facility] Comment on above: Performed By: #### 3 5200, 23949 #### [facility] [address] [facility] [address], [facility] RH INTERPRETATION Positive Normal The [facility] Comment on above: Performed By: #### 3 5200, 86084 #### [facility] [address] [facility] UFH HEPARIN ASSAYon 11-03-19 22 UNFRACTIONATED HEPARIN 0.76 IU/mL High 0.30-0.70 Th e [facility] Comment on above: Result Comment: Clare roxaban and Apixaban will interfere with the anti Xa assay used to monitor UFH and LMWH. Performed By: #### 3 5200, 02999 #### [facility] [address] [place] [address], [facility] UNFRACTIONATED HEPARIN 0.96 IU/mL Critically high 0.30-0.7 0 The [facility] Comment on above: Result Comment: Resu lt checked and called. Accurately read back by Kathy Kralik RN at 0548 Rivaroxaban and Apixaban will interfere with the anti Xa assay used to monitor UFH and LMWH. Performed By: #### 3 0477 #### [facility] [address] APTTon 11-01-2021 aPTT Coag (Bld) [Time] 28.6 s Normal 25.0-35.0 Th e [facility] Comment on above: [...] THIS PURPOSE. Performed By: #### 3 5200, 66613 #### [facility] [address] BNPon 11-01-2021 Natriuretic peptide B (Bld) [Mass/Vol] 9643.0 pg/mL Critically high <=900.0 [facility] Comment on above: Performed By: #### C MP, BNP, HSTROPN ####[facility] [address] [place] [address]DrShaun Nahed Yañez BNP (B-TYPE NATRIURETIC PEPT AYLEEN)on 11-01-2021 Natriuretic peptide B (Bld) [Mass/Vol] 768 pg/mL High 0-100 The [facility] Comment on above: Order Comment: No: D o not add to previous draw Result Comment: Give n the appropriate clinical setting a BNP result of >100 pg/mL indicates congestive heart failure. Performed By: #### 8 5123 #### [facility] [address] CBC AUTO DIFFon 11-01-2021 BASO # 0.0 103/ul Normal 0.0-0.1 [facility] Comment on above: Performed By: #### C BC ####[facility] War[address] [place] [address]Dr. Nahed Yañez Basophils/100 WBC (Bld) 0.1 % Critically low 0.2-2.0 The [facility] Comment on above: Performed By: #### C BC ####[facility] [address]ms[address]udmx[address] [place] [address]Dr. Nahed Yañez EO # 0.0 103/ul Normal 0.0-0.7 The [facility] Comment on above: Performed By: #### C BC ####[facility] [address] [place], [place] [address]Dr. Nahed Yañez Eosinophils/100 WBC (Bld) 0.0 % Critically low 0.9-7.0 The [facility] Comment on above: Performed By: #### C BC ####[facility] [address] [place], [place] [address]Dr. Nahed Yañez Erythrocyte distribution width (RBC) [Ratio] 14.7 % Normal 11.0-15.0 The [facility] Comment on above: Performed By: #### C BC ####[facility] Ekcj[address] [place], [place] [address]Dr. Nahed Yañez Hematocrit (Bld) [Volume fraction] 36.1 % Normal 36.0-48.0 The [facility] Comment on above: Performed By: #### C BC ####[facility] Hemquohyab[address] [place], [place] [address]Dr. Nahed Yañez Hemoglobin (Bld) [Mass/Vol] 11.1 g/dL Critically low 12.0-16.0 The [facility] Comment on above: Result Comment: IV a ntibiotics Performed By: #### C BC ####[facility] F[address] [place], [place] [address]Dr. Rosemarieashley Otilio IG # 0.09 10e3/ul Critically high 0.00-0.03 [facility] Comment on above: Performed By: #### C BC ####[facility] [address] [place], [place] [address]Dr. Nahed Yañez IG % 0.7 % Critically high 0.0-0.5 The [facility] Comment on above: Performed By: #### C BC ####[facility] Wotmqq[address]knh[address] [place] [id number]. Nahed Otilio LYMPH # 0.6 103/ul Critically low 1.2-3.8 The [facility] Comment on above: Performed By: #### C BC ####[facility] Yanfbcgmtn[address] [place] [id number]. Rosemarieashley Yañez Lymphocytes/100 WBC (Bld) 4.8 % Critically low 20.5-60.0 [facility] Comment on above: Performed By: #### C BC ####[facility] [address] [place] [id number]. Nahed Yañez MANUAL DIFF REQ NO Normal [facility] Comment on above: Performed By: #### C BC ####[facility] Wpozmblrnl[address] [place] [id number]. Nahed Yañez MCH (RBC) [Entitic mass] 28.2 pg Normal 26.7-34.0 [facility] Comment on above: Performed By: #### C BC ####[facility] W[address]aqf[address]yz[address] [place] [id number]. Nahed Yañez MCHC (RBC) [Mass/Vol] 30.7 g/dL Normal 29.9-35.2 [facility] Comment on above: Performed By: #### C BC ####[facility] [address]zlzvifj[address] [place] [id number]. Nahed Yañez MCV (RBC) [Entitic vol] 91.9 fL Normal 81.0-99.0 The [facility] Comment on above: Performed By: #### C BC ####[facility] [address] [place] [phone]. Nahed Yañez MONO # 0.2 103/ul Critically low 0.3-0.8 The [facility] Comment on above: Performed By: #### C BC ####[facility] Ufckyccbwa[address] [place] [phone]. Nahed Yañez Monocytes/100 WBC (Bld) 1.7 % Normal 1.7-12.0 [facility] Comment on above: Performed By: #### C BC ####[facility] [address] [place], [place] [address]Qv. Nahed Yañez NEUT # 11.2 103/ul Critically high 1.4-6.5 The [facility] Comment on above: Performed By: #### C BC ####[facility] [address] [place], [place] [address]Ac. Nahed Yañez Neutrophils/100 WBC (Bld) 92.7 % Critically high 43.0-75.0 The [facility] Comment on above: Performed By: #### C BC ####[facility] [address] [place] [phone]. Nahed Yañez Platelet mean volume (Bld) [Entitic vol] 11.1 fL Normal 9.5-13.5 The [facility] Comment on above: Performed By: #### C BC ####[facility] [address] [place] [phone]. Nahed Yañez PLT 213 103/ul Normal 150-450 The [facility] Comment on above: Performed By: #### C BC ####[facility] Vql[address]thibt[address] [place] [phone]. Nahed Yañez RBC 3.93 106/ul Critically low 4.20-5.40 The [facility] Comment on above: Performed By: #### C BC ####[facility] Rig[address] [place] [phone]. Nahed Yañez WBC 12.0 103/ul Critically high 4.0-11.0 The [facility] Comment on above: Performed By: #### C BC ####[facility] Apkm[address]rgmg[address] [place] [phone]. Nahed Yañez CBC W/DIFFon 11-01-2021 ABS IMM GRANS 0.2 10*3/uL Normal 0.0-0.2 The [facility] Comment on above: Order Comment: No: D o not add to previous draw Performed By: #### 3 7980, 78039 #### [facility] [address] [place] [address], [place] ABS NEUTROPHILS 12.5 10*3/uL High 1.6-7.6 The [facility] Comment on above: Order Comment: No: D o not add to previous draw Performed By: #### 3 5200, 69474 #### [facility] [address] [place] [address], [facility] Basophils (Bld) [#/Vol] 0.0 10*3/uL Normal 0.0-0.2 The [facility] Comment on above: Order Comment: No: D o not add to previous draw Performed By: #### 3 5199, 28649 #### [facility] [address] [place] [address], [facility] Basophils/100 WBC (Bld) 0.0 % Normal 0.0-1.0 The [facility] Comment on above: Order Comment: No: D o not add to previous draw Performed By: #### 3 5199, 98781 #### [facility] [address] [place] [address], [facility] Eosinophils (Bld) [#/Vol] 0.0 10*3/uL Normal 0.0-0.5 The [facility] Comment on above: Order Comment: No: D o not add to previous draw Performed By: #### 3 5199, 02696 #### [facility] [address] [facility] [place] [address], [facility] Eosinophils/100 WBC (Bld) 0.0 % Normal 0.0-6.0 The [facility] Comment on above: Order Comment: No: D o not add to previous draw Performed By: #### 3 0, 50399 #### [facility] [address] [facility] [place] [address], [place] Erythrocyte distribution width (RBC) [Ratio] 14.6 % Normal 11.5-15.0 The [facility] Comment on above: Order Comment: No: D o not add to previous draw Performed By: #### 3 5199, 87799 #### [facility] [address] [facility] Hematocrit (Bld) [Volume fraction] 36.6 % Normal 36.0-45.0 The [facility] Comment on above: Order Comment: No: D o not add to previous draw Performed By: #### 3 5199, 21417 #### [facility] [address] [facility] [place] [address], [facility] Hemoglobin (Bld) [Mass/Vol] 11.4 g/dL Low 12.0-15.0 The [facility] Comment on above: Order Comment: No: D o not add to previous draw Performed By: #### 3 5199, 87416 #### [facility] [address] [place] [address], [facility] IMMATURE GRANS 1.2 % High 0.0-1.0 The [facility] Comment on above: Order Comment: No: D o not add to previous draw Performed By: #### 3 5199, 91170 #### [facility] [address] [facility]. [address] Lymphocytes (Bld) [#/Vol] 0.6 10*3/uL Low 1.2-4.0 The [facility] Comment on above: Order Comment: No: D o not add to previous draw Performed By: #### 3 5199, 84691 #### [facility] [address] [facility] [place] [address], [facility] Lymphocytes/100 WBC (Bld) 4.2 % Low 20.0-45.0 The [facility] Comment on above: Order Comment: No: D o not add to previous draw Performed By: #### 3 5199, 18006 #### [facility] [address] [facility] [place] [address], [facility] MCH (RBC) [Entitic mass] 28.2 pg Normal 27.0-33.0 The [facility] Comment on above: Order Comment: No: D o not add to previous draw Performed By: #### 3 5199, 04836 #### [facility] [address] [place] [address], [facility] MCHC (RBC) [Mass/Vol] 31.1 g/dL Low 32.0-35.0 The [facility] Comment on above: Order Comment: No: D o not add to previous draw Performed By: #### 3 0, 37556 #### [facility] [address] [place] [address], [facility] MCV (RBC) [Entitic vol] 90.6 fL Normal 82.0-98.0 The [facility] Comment on above: Order Comment: No: D o not add to previous draw Performed By: #### 3 5199, 10008 #### [facility] [address] [place] [id number], [facility] Monocytes (Bld) [#/Vol] 0.5 10*3/uL Normal 0.1-1.0 The [facility] Comment on above: Order Comment: No: D o not add to previous draw Performed By: #### 3 5199, 63578 #### [facility] [address] [facility] [place] [address], [facility] MONOS 3.3 % Low 5.0-12.0 The [facility] Comment on above: Order Comment: No: D o not add to previous draw Performed By: #### 3 5199, 42091 #### [facility] [address] [place] [address], [facility] Neutrophils/100 WBC (Bld) 91.3 % High 40.0-72.0 The [facility] Comment on above: Order Comment: No: D o not add to previous draw Performed By: #### 3 5199, 62963 #### [facility] [address] [place] [address], [facility] Nucleated RBC/100 WBC (Bld) [Ratio] 0 % Normal 0-0 The [facility] Comment on above: Order Comment: No: D o not add to previous draw Performed By: #### 3 5200, 45757 #### [facility] [address] [place] [address], [facility] PLAT CNT 224 10*3/uL Normal 150-400 The [facility] Comment on above: Order Comment: No: D o not add to previous draw Performed By: #### 3 5200, 57013 #### [facility] [address] [place] [address], [facility] RBC (Bld) [#/Vol] 4.04 10*6/uL Normal 3.80-5.00 The [facility] Comment on above: Order Comment: No: D o not add to previous draw Performed By: #### 3 5200, 28528 #### [facility] [address] [place] [address], [facility] WBC (Bld) [#/Vol] 13.70 10*3/uL High 4.00-10.60 The [facility] Comment on above: Order Comment: No: D o not add to previous draw Performed By: #### 3 5200, 65040 #### [facility] [address] [place] [address], [facility] COMP METABOLIC PANELon 11-01 Albumin [Mass/Vol] 3.7 g/dL Normal 3.5-5.7 The [facility] Comment on above: Order Comment: No: D o not add to previous draw Performed By: #### 0 0121, 64363, 89146 #### [facility] [address] [place] [address], [facility] ALKALINE PHOSPH 54 IU/L Normal 34-104 The [facility] Comment on above: Order Comment: No: D o not add to previous draw Performed By: #### 0 0121, 65392, 60405 #### [facility] [address] [place] [address], [place] ALT [Catalytic activity/Vol] 12 U/L Normal 7-52 The [facility] Comment on above: Order Comment: No: D o not add to previous draw Performed By: #### 0 0121, 50098, 01626 #### [facility] [address] [place] [address], [place] AST [Catalytic activity/Vol] 17 U/L Normal 13-39 The [facility] Comment on above: Order Comment: No: D o not add to previous draw Performed By: #### 0 0121, 62942, 83062 #### [facility] [address] [place] [address], [place] Bilirubin [Mass/Vol] 0.3 mg/dL Normal 0.3-1.0 The [facility] Comment on above: Order Comment: No: D o not add to previous draw Performed By: #### 0 0121, 18537, 23942 #### [facility] [address] [place] [address], [place] Calcium [Mass/Vol] 9.4 mg/dL Normal 8.6-10.3 The [facility] Comment on above: Order Comment: No: D o not add to previous draw Performed By: #### 0 0121, 87634, 17473 #### [facility] [address] [place] [address], [place] Chloride [Moles/Vol] 100 mmol/L Normal 98-107 The [facility] Comment on above: Order Comment: No: D o not add to previous draw Performed By: #### 0 0121, 76772, 27560 #### [facility] [address] [place] [address], [place] CO2 [Moles/Vol] 29 mmol/L Normal 21-31 The [facility] Comment on above: Order Comment: No: D o not add to previous draw Performed By: #### 0 0121, 32966, 70939 #### [facility] [address] [place] [address], [place] Creatinine [Mass/Vol] 1.04 mg/dL Normal 0.60-1.20 The [facility] Comment on above: Order Comment: No: D o not add to previous draw Performed By: #### 0 0121, 76802, 57710 #### [facility] [address] [place] [address], [place] eGFR- non- 54 ml/min/1.73sq m Abnormal >60 The [facility] Comment on above: Order Comment: No: D o not add to previous draw Performed By: #### 0 0121, 10111, 19913 #### [facility] [address] [place] [address], [place] GFR/1.73 sq M.predicted among blacks MDRD (S/P/Bld) [Vol rate/Area] mL/min/{1.73_m2} Normal >60 The [facility] Comment on above: Order Comment: No: D o not add to previous draw Performed By: #### 0 0121, 03793, 57441 #### [facility] [address] [place] [address], [place] Glucose [Mass/Vol] 239 mg/dL High 70-100 The [facility] Comment on above: Order Comment: No: D o not add to previous draw Performed By: #### 0 0121, 76626, 48657 #### [facility] [address] [place] [address], [place] Potassium [Moles/Vol] 4.3 mmol/L Normal 3.5-5.1 The [facility] Comment on above: Order Comment: No: D o not add to previous draw Performed By: #### 0 0121, 51840, 43011 #### [facility] [address] [place] [address], [place] Protein [Mass/Vol] 5.6 g/dL Low 6.0-8.3 The [facility] Comment on above: Order Comment: No: D o not add to previous draw Performed By: #### 0 0121, 74496, 76657 #### [facility] [address] [place] [address], [facility] Sodium [Moles/Vol] 139 mmol/L Normal 136-145 [facility] Comment on above: Order Comment: No: D o not add to previous draw Performed By: #### 0 0121, 32671, 84311 #### [facility] [address] [place] [address], [facility] Urea nitrogen [Mass/Vol] 24 mg/dL Normal 7-25 [facility] Comment on above: Order Comment: No: D o not add to previous draw Performed By: #### 0 0121, 85402, 74104 #### [facility] [address] [place] [address], [facility] MAGNESIUM BLOODon 11-01-2021 Magnesium [Mass/Vol] 2.0 mg/dL Normal 1.9-2.7 The [facility] Comment on above: Order Comment: No: D o not add to previous draw Performed By: #### 0 0121, 14287, 79006 #### [facility] [address] [place] [address], [facility] PROF 14(COMP METB)on 022 Albumin [Mass/Vol] 3.1 g/dL Critically low 3.4-5.0 [facility] Comment on above: Performed By: #### C MP, BNP, HSTROPN ####[facility] [address]fib[address] [place] [address]Dr. Nahed Yañez Albumin/Globulin [Mass ratio] 1.0 {ratio} Normal [facility] Comment on above: Performed By: #### C MP, BNP, HSTROPN ####[facility] [address] [place] [address]Dr. Nahed Yañez ALP [Catalytic activity/Vol] 56 U/L Normal 46-116 [facility] Comment on above: Performed By: #### C MP, BNP, HSTROPN ####[facility] [address] [place] [address]Dr. Nahed Yañez ALT [Catalytic activity/Vol] 19 U/L Normal 14-59 [facility] Comment on above: Performed By: #### C MP, BNP, HSTROPN ####[facility] [address]xask[address] [place] [address]Dr. Nahed Yañez Anion gap [Moles/Vol] 14.3 mmol/L Normal Th e [facility] Comment on above: Performed By: #### C MP, BNP, HSTROPN ####[facility] [address] [place], [place] [address]Dr. Nahed Yañez AST [Catalytic activity/Vol] 18 U/L Normal 15-37 [facility] Comment on above: Performed By: #### C MP, BNP, HSTROPN ####[facility] [address] [place], [place] [address]Dr. Nahed Yañez Bilirubin [Mass/Vol] 0.4 mg/dL Normal 0.2-1.0 [facility] Comment on above: Performed By: #### C MP, BNP, HSTROPN ####[facility] [address] [place], [place] [address]Dr. Nahed Yañez Calcium [Mass/Vol] 9.3 mg/dL Normal 8.5-10.1 [facility] Comment on above: Performed By: #### C MP, BNP, HSTROPN ####[facility] [address] [place] [address]Dr. Nahed Yañez Chloride [Moles/Vol] 102 mmol/L Normal 98-107 [facility] Comment on above: Performed By: #### C MP, BNP, HSTROPN ####[facility] [address]fr[address] [place], [place] [address]Dr. Nahed Yañez CO2 [Moles/Vol] 27.1 mmol/L Normal 21.0-32.0 [facility] Comment on above: Performed By: #### C MP, BNP, HSTROPN ####[facility] [address] [place] [address]Dr. Nahed Yañez Creatinine [Mass/Vol] 1.25 mg/dL Critically high 0.55-1.02 [facility] Comment on above: Performed By: #### C MP, BNP, HSTROPN ####[facility] [address] [place] [address]Dr. Nahed Yañez EGFR-AF GREEK 53 mL/min/1.73m2 Critically low >=60 [facility] Comment on above: Performed By: #### C MP, BNP, HSTROPN ####[facility] [address] [place] [address]Dr. Nahed Yañez EGFR-NON AF GREEK 44 mL/min/1.73m2 Critically low >=60 [facility] Comment on above: Performed By: #### C MP, BNP, HSTROPN ####[facility] [address] [place] [address]Dr. Nahed Yañez Globulin (S) [Mass/Vol] 3.2 g/dL Normal [facility] Comment on above: Performed By: #### C MP, BNP, HSTROPN ####[facility] Yqshx[address] [place] [address]Dr. Nahed Yañez Glucose [Mass/Vol] 248 mg/dL Critically high 74-106 [facility] Comment on above: Performed By: #### C MP, BNP, HSTROPN ####[facility] [address] [place] [address]Dr. Nahed Yañez Potassium [Moles/Vol] 3.4 mmol/L Critically low 3.5-5.1 [facility] Comment on above: Performed By: #### C MP, BNP, HSTROPN ####[facility] Sks[address]jc[address] [place] [address]Dr. Rosemarielan Yañez Protein [Mass/Vol] 6.3 g/dL Critically low 6.4-8.2 [facility] Comment on above: Performed By: #### C MP, BNP, HSTROPN ####[facility] [address]idnvrm[address] [place] [address]Dr. Nahed Yañez Sodium [Moles/Vol] 140 mmol/L Normal 136-145 [facility] Comment on above: Performed By: #### C MP, BNP, HSTROPN ####[facility] [address] [place], [place] [address]Py. Nahed Yañez Urea nitrogen [Mass/Vol] 18.0 mg/dL Normal 7.0-18.0 [facility] Comment on above: Performed By: #### C MP, BNP, HSTROPN ####[facility] [address] [place], [place] [address]Or. Nahed Yañez Urea nitrogen/Creatinine [Mass ratio] 14.4 mg/mg Normal [facility] Comment on above: Performed By: #### C MP, BNP, HSTROPN ####[facility] [address] [place], [place] [address]Cn. Nahed Yañez PROTHROMBIN TIMEon 2 INR Coag (PPP) [Relative time] 1.06 {INR} Normal 0.91-1.16 [facility] Comment on above: Order Comment: [...] 1995;[id number]. Performed By: #### 5 6101 #### [facility] [address] [facility] [address] PT Coag (PPP) [Time] 13.8 s Normal 12.3-14.8 [facility] Comment on above: Order Comment: No: D o not add to previous draw Result Comment: ALL RESULTS MUST BE INTERPRETED WITH RESPECT TO BLOOD DRAWING ARTIFACT OR DILUTION ERROR OF ANTICOAGULANT AT THE TIME OF SAMPLING. Performed By: #### 5 6101 #### [facility] [address] [place] [address], [facility] TROPONIN, HIGH SENSITIVITYon 11-01-2021 HSTROP 1684.4 pg/mL Critically high 4.0-51.3 [facility] Comment on above: Result Comment: CUT- OFF POINTS HAVE BEEN ESTABLISHED BASED ON THE FOURTH UNIVERSAL DEFINITIONS OF MYOCARDIALINFARCTION. THE UPPER REFERENCE LIMIT (URL) OF TROPONIN, DEFINED THE 99TH PERCENTILE OFcTnI DISTRIBUTION IN A REFERENCE POPULATION, HAS BEEN CONFIRMED THE DECISION THRESHOLDFOR SD DIAGNOSIS. Performed By: #### C MP, BNP, HSTROPN ####[facility] [address]ib[address]in[address] [place] [address]DrShaun Yañez TROPONIN-Ion 11-01-2021 Troponin I.cardiac [Mass/Vol] 0.22 ng/mL Critically high 0.00-0.04 [facility] Comment on above: [...] AN M.I. Performed By: #### 0 0121, [id number], [id number] #### [facility] [address] [place] [address], [facility] UFH HEPARIN ASSAYon 11-02-19 22 UNFRACTIONATED HEPARIN 0.55 IU/mL Normal 0.30-0.70 Th e [facility] Comment on above: Result Comment: Clare roxaban and Apixaban will interfere with the anti Xa assay used to monitor UFH and LMWH. Performed By: #### 3 5200, 48402 #### [facility] [address] [place] [address], [facility] BLOOD GASES BTYon 10-31-2021 02 MODE ROOM AIR Normal [facility] Comment on above: Performed By: #### A BG ####[facility] [address] [place] [address]Dr. Nahed Yañez ALLENS TEST Positive Normal [facility] Comment on above: Performed By: #### A BG ####[facility] Oqbokqibmv[address] [place] [address]Dr. Nahed Yañez Base excess Calc (Bld) [Moles/Vol] 3.5 mmol/L Critically high -2.0-2.0 [facility] Comment on above: Performed By: #### A BG ####[facility] Fwnitilhmy[address] [place], [place] [address]Dr. Nahed Yañez BIPAP PRESSURE Normal [facility] Comment on above: Performed By: #### A BG ####[facility] Mtulzcksqf[address] [place], [place] [address]Dr. Nahed Yañez CO2 [Moles/Vol] 56.3 mmol/L Critically high 23.0-28.0 [facility] Comment on above: Performed By: #### A BG ####[facility] Cenngyj[address] [place], [place] [address]Dr. Nahed Yañez CPAP Normal [facility] Comment on above: Performed By: #### A BG ####[facility] Aewujwlvdk[address] [place], [place] [address]Dr. Nahed Yañez FIO2 Normal [facility] Comment on above: Performed By: #### A BG ####[facility] Fufvsupqkv[address] [place], [place] [address]Dr. Nahed Yañez HCO3 (Bld) [Moles/Vol] 26.8 mmol/L Critically high 22.0-26 .0 [facility] Comment on above: Performed By: #### A BG ####[facility] Zozrpzmwde[address] [place], [place] [address]Dr. Nahed Yañez LPM Normal [facility] Comment on above: Performed By: #### A BG ####[facility] [address] [place] [address]Dr. Nahed Yañez MINUTE VOLUME Normal [facility] Comment on above: Performed By: #### A BG ####[facility] Iegwhcqqwz2[address] [place] [address]Dr. Nahed Yañez Oxygen (Bld) [Partial pressure] 51.8 mm[Hg] Critically low 80.0-100.0 [facility] Comment on above: Performed By: #### A BG ####[facility] Hvrlmdmsgr[address] [place], [place] [address]Dr. Nahed Yañez Oxygen saturation in Blood 86.3 % Critically low 95.0-100.0 [facility] Comment on above: Performed By: #### A BG ####[facility] Prxmsiffit[address] [place], [place] [address]Dr. Nahed Yañez PCO2 43.8 mmHg Normal 35.0-45.0 [facility] Comment on above: Performed By: #### A BG ####[facility] Dhzqgqzoao[address] [place], [place] [address]Dr. Nahed Yañez PEEP [facility] Comment on above: Performed By: #### A BG ####[facility] Ohxusnqk[address] [place], [place] [address]Dr. Nahed Yañez pH (Bld) 7.415 [pH] Normal 7.350-7.450 [facility] Comment on above: Performed By: #### A BG ####[facility] Jdeuujbz[address] [place], [place] [address]Dr. Nahed Yañez PIP Normal [facility] Comment on above: Performed By: #### A BG ####[facility] Vtovt[address] [place], [place] [address]Dr. Nahed Yañez PS Normal [facility] Comment on above: Performed By: #### A BG ####[facility] [address]ucz[address] [place] [address]Dr. Nahed Yañez PUNCTURE SITE RR Normal [facility] Comment on above: Performed By: #### A BG ####[facility] T[address]nj[address] [place] [address]Dr. Nahed Yañez RATE Normal [facility] Comment on above: Performed By: #### A BG ####[facility] Emmtzisllf[address] [place] [address]Dr. Nahed Yañez VENT MODE Normal [facility] Comment on above: Performed By: #### A BG ####[facility] [address]ooa[address]zn[address] [place] [address]Dr. Nahed Yañez VT Normal [facility] Comment on above: Performed By: #### A BG ####[facility] Zfbdiwwyfi[address] [place] [address]Dr. Nahed Yañez BNPon 2 Natriuretic peptide B (Bld) [Mass/Vol] 42156.0 pg/mL Critically high <=900.0 [facility] Comment on above: Performed By: #### T 4, TSH, BNP, CMADM ####[facility] Kwkhck[address] [place], [place] [address]Dr. Nahed Yañez CARDIAC FRANCISCO 3-6on 2 CK [Catalytic activity/Vol] 91 U/L Normal 26-192 [facility] Comment on above: Performed By: #### C MREP ####[facility] Rydeygqcks[address] [place], [place] [address]Dr. Nahed Yañez CK.MB [Mass/Vol] 7.32 ng/mL Critically high <=3.60 [facility] Comment on above: Result Comment: test repeated critical value verified Performed By: #### C MREP ####[facility] K[address]ll[address] [place], [place] [address]Dr. Nahed Yañez HSTROP 2823.1 pg/mL Critically high 4.0-51.3 [facility] Comment on above: Result Comment: CUT- OFF POINTS HAVE BEEN ESTABLISHED BASED ON THE FOURTH UNIVERSAL DEFINITIONS OF MYOCARDIALINFARCTION. THE UPPER REFERENCE LIMIT (URL) OF TROPONIN, DEFINED THE 99TH PERCENTILE OFcTnI DISTRIBUTION IN A REFERENCE POPULATION, HAS BEEN CONFIRMED THE DECISION THRESHOLDFOR SD DIAGNOSIS.test repeated critical value verified Performed By: #### C MREP ####[facility] [address] [place] [address]Dr. Nahed Yañez CARDIAC FRANCISCO ADMITon 022 CK [Catalytic activity/Vol] 85 U/L Normal 26-192 [facility] Comment on above: Performed By: #### T 4, TSH, BNP, CMADM ####[facility] O[address]oi[address]zts[address] [place] [address]Dr. Rosemarieashley Yañez CK.MB [Mass/Vol] 6.44 ng/mL Critically high <=3.60 [facility] Comment on above: Performed By: #### T 4, TSH, BNP, CMADM ####[facility] Lcpzgsvlyv[address] [place] [address]Dr. Nahed Otilio HSTROP 3194.8 pg/mL Critically high 4.0-51.3 [facility] Comment on above: Result Comment: CUT- OFF POINTS HAVE BEEN ESTABLISHED BASED ON THE FOURTH UNIVERSAL DEFINITIONS OF MYOCARDIALINFARCTION. THE UPPER REFERENCE LIMIT (URL) OF TROPONIN, DEFINED THE 99TH PERCENTILE OFcTnI DISTRIBUTION IN A REFERENCE POPULATION, HAS BEEN CONFIRMED THE DECISION THRESHOLDFOR SD DIAGNOSIS. Performed By: #### T 4, TSH, BNP, CMADM ####[facility] Iqnlnrebio[address] [place] [address]Dr. Rosemarieashley Yañez ANDRE 57 ng/mL Normal 9-82 [facility] Comment on above: Performed By: #### T 4, TSH, BNP, CMADM ####[facility] Uwtgrqgkrf[address] [place] [address]Dr. Nahed Otilio CBC AUTO DIFFon 10-31-2021 BASO # 0.0 103/ul Normal 0.0-0.1 [facility] Comment on above: Performed By: #### C BC ####[facility] Barnxzzyfz[address] [place] [address]Dr. Rosemarieashley Yañez Basophils/100 WBC (Bld) 0.2 % Normal 0.2-2.0 [facility] Comment on above: Performed By: #### C BC ####[facility] Yphzdzujvn[address] [place] [address]Dr. Nahed Yañez EO # 0.0 103/ul Normal 0.0-0.7 [facility] Comment on above: Performed By: #### C BC ####[facility] Jhudabbfrw26[address] [place] [address]Dr. Nahed Yañez Eosinophils/100 WBC (Bld) 0.1 % Critically low 0.9-7.0 [facility] Comment on above: Performed By: #### C BC ####[facility] Awncoyqpxv[address] [place], [place] [address]Dr. Nahed Otilio Erythrocyte distribution width (RBC) [Ratio] 14.8 % Normal 11.0-15.0 [facility] Comment on above: Performed By: #### C BC ####[facility] Zbfmpcjbra[address] [place], [place] [address]Dr. Nahed Yañez Hematocrit (Bld) [Volume fraction] 44.4 % Normal 36.0-48.0 [facility] Comment on above: Performed By: #### C BC ####[facility] Oqtigsavww[address] [place], [place] [address]Dr. Nahed Yañez Hemoglobin (Bld) [Mass/Vol] 14.1 g/dL Normal 12.0-16.0 [facility] Comment on above: Performed By: #### C BC ####[facility] Xiurmrgztz[address] [place], [place] [address]Dr. Rosemarieashley Otilio IG # 0.04 10e3/ul Critically high 0.00-0.03 [facility] Comment on above: Performed By: #### C BC ####[facility] Wjikswhynd[address] [place], [place] [address]Dr. Nahed Yañez IG % 0.3 % Normal 0.0-0.5 [facility] Comment on above: Performed By: #### C BC ####[facility] Thlnuihgqd8[address] [place], [place] [address]Dr. Nahed Yañez LYMPH # 1.4 103/ul Normal 1.2-3.8 [facility] Comment on above: Performed By: #### C BC ####[facility] Mwaojgwadn[address] [place], [place] [address]Dr. Nahed Yañez Lymphocytes/100 WBC (Bld) 10.4 % Critically low 20.5-60.0 [facility] Comment on above: Performed By: #### C BC ####[facility] Copddiitam[address] [place] [address]DrShaun Yañez MANUAL DIFF REQ NO Normal [facility] Comment on above: Performed By: #### C BC ####[facility] Cvvwzpwyci[address] [place] [address]DrShaun Yañez MCH (RBC) [Entitic mass] 28.1 pg Normal 26.7-34.0 [facility] Comment on above: Performed By: #### C BC ####[facility] Kovkjqvppn07[address] [place], [place] [address]DrShaun Yañez MCHC (RBC) [Mass/Vol] 31.8 g/dL Normal 29.9-35.2 [facility] Comment on above: Performed By: #### C BC ####[facility] Gacptmrcup[address] [place], [place] [address]DrShaun Yañez MCV (RBC) [Entitic vol] 88.4 fL Normal 81.0-99.0 [facility] Comment on above: Performed By: #### C BC ####[facility] Fppdsmqwdf[address] [place], [place] [address]DrShaun Yañez MONO # 0.8 103/ul Normal 0.3-0.8 [facility] Comment on above: Performed By: #### C BC ####[facility] Zjhkvofvab23[address] [place], [place] [address]DrShaun Yañez Monocytes/100 WBC (Bld) 6.0 % Normal 1.7-12.0 [facility] Comment on above: Performed By: #### C BC ####[facility] Ojkhhmozxc02[address] [place], [place] [address]DrShaun Yañez NEUT # 10.9 103/ul Critically high 1.4-6.5 [facility] Comment on above: Performed By: #### C BC ####[facility] Vhhjhumpvl[address] [place], [place] [address]DrShaun Yañez Neutrophils/100 WBC (Bld) 83.0 % Critically high 43.0-75.0 [facility] Comment on above: Performed By: #### C BC ####[facility] Vxemyvaqfo[address] [place] [address]Dr. Nahed Yañez Platelet mean volume (Bld) [Entitic vol] 10.8 fL Normal 9.5-13.5 [facility] Comment on above: Performed By: #### C BC ####[facility] T[address]wknzia[address] [place], [place] [address]Dr. Rosemarieashley Yañez PLT 402 103/ul Normal 150-450 [facility] Comment on above: Performed By: #### C BC ####[facility] Fkgrfavljg6714[address] [place], [place] [address]Dr. Rosemarieashley Yañez RBC 5.02 106/ul Normal 4.20-5.40 [facility] Comment on above: Performed By: #### C BC ####[facility] Uakclnuznv[address] [place], [place] [address]Dr. Nahed Yañez WBC 13.1 103/ul Critically high 4.0-11.0 [facility] Comment on above: Performed By: #### C BC ####[facility] Rltrzfrvdk[address] [place], [place] [address]Dr. Nahed Yañez CTA CHEST WO W CONon 022 CTA CHEST WO W CON Normal [facility] CULTURE BLOODon 10-31-2021 Microscopic examination of blood, culture Culture Observations: NO GROWTH AT 5 DAYS. Normal [facility] Comment on above: Performed By: #### B LDCX2 ####[facility] Jpgunigyti[address] [place], [place] [address]Dr. Nahed Yañez Microscopic examination of blood, culture Culture Observations: NO GROWTH AT 5 DAYS. Normal [facility] Comment on above: Performed By: #### B LDCX1 ####[facility] Hakbchwpky[address] [place], [place] [address]Dr. Nahed Yañez Covid-19 PCR (CVDTB)on 10-13 SARS-CoV-2 (COVID-19) RNA MIRNA+probe Ql (Unsp spec) Not detected Normal NOT DETECTED [facility] [...] for this test is supported by the Records Analyst of Health and Human Service's declaration that [...] longer be used). Performed By: #### [facility]abell [facility] ####[facility] Kezdhtlhkh[address] [place], [place] [address]Dr. Nahed Yañez ECHO LIMITED STUDYon 022 ECHO LIMITED STUDY Normal [facility] ER URINE PROFILEon 2 Bilirubin Ql (U) SMALL Abnormal NEGATIVE [facility] Comment on above: Performed By: #### YARELIS DOVE ####[facility] Xvrgtrwubc[address] [place], [place] [address]Dr. Nahed Yañez Clarity (U) CLEAR Normal CLEAR [facility] Comment on above: Performed By: #### YARELIS DOVE ####[facility] Pouwetrsrr30[address] [place], [place] [address]Dr. Nahed Yañez Color (U) YELLOW Normal YELLOW [facility] Comment on above: Performed By: #### YARELIS DOVE ####[facility] Ebgipcwpuc[address] [place], [place] [address]Dr. Nahed Yañez ERUAHD A micrscopic examination will be performed if indicated. Normal [facility] Comment on above: Performed By: #### YARELIS DOVE ####[facility] Fvbmlzisoz[address] [place], [place] [address]Dr. Nahed Yañez Glucose Ql (U) Negative Normal NEGATIVE [facility] Comment on above: Performed By: #### Isidoro ALCARAZ UMICRO ####[facility] Uhwvgekoqg22[address] [place], [place] [address]Dr. Nahed Yañez Hemoglobin Ql (U) TRACE-INTACT Abnormal NEGATIVE [facility] Comment on above: Performed By: #### Isidoro ALCARAZ UMICRO ####[facility] Oyykynqryt[address] [place], [place] [address]Dr. Nahed Yañez Ketones Ql (U) 15 mg/dl Abnormal NEGATIVE [facility] Comment on above: Performed By: #### Isidoro ALCARAZ UMICRO ####[facility] Kghwsmxkdk[address] [place], [place] [address]Dr. Nahed Yañez LEUKOCYTES TRACE Abnormal NEGATIVE [facility] Comment on above: Performed By: #### Isidoro ALCARAZ UMICRO ####[facility] Uaxojpbltp107[address] [place], [place] [address]Dr. Nahed Yañez Nitrite Ql (U) Negative Normal NEGATIVE [facility] Comment on above: Performed By: #### Isidoro ALCARAZ UMICRO ####[facility] Wxkruoplkw[address] [place], [place] [address]Dr. Nhaed Yañez pH (U) 6.5 [pH] Normal 5-9 [facility] Comment on above: Performed By: #### Isidoro ALCARAZ UMICRO ####[facility] Iuvybetgxs[address] [place], [place] [address]Dr. Nahed Yañez Protein (U) [Mass/Vol] 30 mg/dL Abnormal NEGAT JOSEPHINE/ TRACE [facility] Comment on above: Performed By: #### Isidoro ALCARAZ UMICRO ####[facility] Xjrncvgkdg[address] [place], [place] [address]Dr. Nahed Yañez SPEC GRAVITY 1.025 Normal 1.005-<=1.02 5 [facility] Comment on above: Performed By: #### Isidoro ALCARAZ UMICRO ####[facility] Xmryynzngx[address] [place], [place] [address]Dr. Nahed Yañez UR MICRO IND INDICATED Normal [facility] Comment on above: Performed By: #### YARELIS DOVE ####[facility] Vuoaaxtotb[address] [place], [place] [address]Dr. Nahed Yañez Urobilinogen Qn (U) 0.2 {Alem'U}/dL Normal 0.2 - 1. 0 [facility] Comment on above: Performed By: #### YARELIS DOVE ####[facility] Zynbomvofv[address] [place], [place] [address]Dr. Nahed Yañez INFLUENZA A AND B AGon 10-31 INFLUANEGH SEE BELOW Normal [facility] Comment on above: Result Comment: Nega tive for Flu A protein angiten. Infection due to Flu A cannot be ruled out. Flu A angiten in the sample may be below the detection limit of the test. Performed By: #### I NFLUAB ####[facility] H[address]ixgyshf[address] [place], [place] [address]Dr. Nahed Yañez INFLUBNEGH SEE BELOW Normal [facility] Comment on above: Result Comment: Nega tive for Flu B protein antigen. Infection due to Flu B cannot be ruled out. Flu B antigen in the sample may be below the detection limit of the test. Performed By: #### I NFLUAB ####[facility] Cfxxhzxjoa[address] [place], [place] [address]Dr. Nahed Yañez INFLUENZA A AG Negative Normal NEGATIVE SEE COMMENT [facility] Comment on above: Performed By: #### I NFLUAB ####[facility] Xoqsoysyul[address] [place], [place] [address]Dr. Nahed Yañez INFLUENZA B AG Negative Normal NEGATIVE SEE COMMENT [facility] Comment on above: Performed By: #### I NFLUAB ####[facility] Vsalbatxqw[address] [place], [place] [address]Dr. Nahed Yañez INTERNAL CONTROLS Within Normal Limits Normal Wi thin Normal Limits [facility] Comment on above: Performed By: #### I NFLUAB ####[facility] Uylnopstmx[address] [place], [place] [address]Dr. Nahed Yañez LACTATE/LACTIC ACIDon 2021 Lactate [Moles/Vol] 1.3 mmol/L Normal 0.4-1.9 [facility] Comment on above: Performed By: #### L ACT ####[facility] Cfkeirjyad[address] [place], [place] [address]Dr. Nahed Yañez PROF 14(COMP METB)on 022 Albumin [Mass/Vol] 4.3 g/dL Normal 3.4-5.0 [facility] Comment on above: Performed By: #### C MP ####[facility] Xuchxgbglb[address] [place], [place] [address]Dr. Nahed Yañez Albumin/Globulin [Mass ratio] 1.2 {ratio} Normal [facility] Comment on above: Performed By: #### C MP ####[facility] G[address]yuv[address]mmw[address] [place], [place] [address]Dr. Nahed Yañez ALP [Catalytic activity/Vol] 77 U/L Normal 46-116 [facility] Comment on above: Performed By: #### C MP ####[facility] W[address]ixijvot[address] [place], [place] [address]Dr. Nahed Yañez ALT [Catalytic activity/Vol] 25 U/L Normal 14-59 [facility] Comment on above: Performed By: #### C MP ####[facility] [address]zjwwvrru[address] [place], [place] [address]Dr. Nahed Yañez Anion gap [Moles/Vol] 15.6 mmol/L Normal [facility] Comment on above: Performed By: #### C MP ####[facility] Uhpvwmnjnf[address] [place], [place] [address]Dr. Naehd Yañez AST [Catalytic activity/Vol] 26 U/L Normal 15-37 [facility] Comment on above: Performed By: #### C MP ####[facility] Dvfldepjiq[address] [place], [place] [address]Dr. Nahed Yañez Bilirubin [Mass/Vol] 0.6 mg/dL Normal 0.2-1.0 [facility] Comment on above: Performed By: #### C MP ####[facility] Hahlhogyfr[address] [place], [place] [address]Dr. Nahed Yañez Calcium [Mass/Vol] 10.0 mg/dL Normal 8.5-10.1 [facility] Comment on above: Performed By: #### C MP ####[facility] Radrwjhukp[address] [place] [address]Dr. Nahed Yañez Chloride [Moles/Vol] 101 mmol/L Normal 98-107 [facility] Comment on above: Performed By: #### C MP ####[facility] Vtkkpkkfkn6[address] [place] [address]Dr. Nahed Yañez CO2 [Moles/Vol] 29.0 mmol/L Normal 21.0-32.0 [facility] Comment on above: Performed By: #### C MP ####[facility] Pmrzzhyvuc[address] [place], [place] [address]Dr. Nahed Yañez Creatinine [Mass/Vol] 0.89 mg/dL Normal 0.55-1.02 [facility] Comment on above: Performed By: #### C MP ####[facility] Oatezwipcr[address] [place], [place] [address]Dr. Nahed Yañez EGFR-AF GREEK >60 Normal >=60 [facility] Comment on above: Performed By: #### C MP ####[facility] Lnfzgpplwo90[address] [place], [place] [address]Dr. Nahed Yañez EGFR-NON AF GREEK >60 Normal >=60 [facility] Comment on above: Performed By: #### C MP ####[facility] Xehtixirch[address] [place] [address]Dr. Nahed Yañez Globulin (S) [Mass/Vol] 3.7 g/dL Normal [facility] Comment on above: Performed By: #### C MP ####[facility] Lqqjsalnpi4036 [place] [address]Dr. Nahed Otilio Glucose [Mass/Vol] 182 mg/dL Critically high 74-106 [facility] Comment on above: Performed By: #### C MP ####[facility] Lryxyytzjx6898 [place] [address]Dr. Nahed Yañez Potassium [Moles/Vol] 3.6 mmol/L Normal 3.5-5.1 [facility] Comment on above: Performed By: #### C MP ####[facility] Gxvgqvmyqx8896 [place] [address]Dr. Nahed Yañez Protein [Mass/Vol] 8.0 g/dL Normal 6.4-8.2 [facility] Comment on above: Performed By: #### C MP ####[facility] Whpqtdtexr1565 [place] [address]Dr. Nahed Yañez Sodium [Moles/Vol] 142 mmol/L Normal 136-145 [facility] Comment on above: Performed By: #### C MP ####[facility] Zhwdpgthfh6382 [place] [address]Dr. Nahed Yañez Urea nitrogen [Mass/Vol] 8.0 mg/dL Normal 7.0-18.0 [facility] Comment on above: Performed By: #### C MP ####[facility] Supfcbmblg[address] [place], [place] [address]Dr. Nahed Yañez Urea nitrogen/Creatinine [Mass ratio] 9.0 mg/mg Normal [facility] Comment on above: Performed By: #### C MP ####[facility] Altcasdhxy4347 [place] [address]Dr. Nahed Yañez T4on 10-31-2021 T4 [Mass/Vol] 8.10 ug/dL Normal 4.80-13.90 [facility] Comment on above: Performed By: #### T 4, TSH, BNP, CMADM ####[facility] Piwqeoztcy12[address] [place] [address]Dr. Nahed Yañez TSHon 10-31-2021 TSH 1.088 uIU/mL Normal 0.358-3.[address] [facility] Comment on above: Performed By: #### T 4, TSH, BNP, CMADM ####[facility] Vtzrpjatxk7[address] [place] [address]Dr. Nahed Yañez URINE MICROSCOPIC ONLYon BACTERIA TRACE Abnormal NONE SEEN [facility] Comment on above: Performed By: #### E YARELIS ALCARAZ ####[facility] Aayvrzqgls13[address] [place] [address]Dr. Nahed Yañez Bacteria identified Cx Nom (U) NOT INDICATED Normal [facility] Comment on above: Performed By: #### YARELIS DOVE ####[facility] Zhsdfqdtgy0[address] [place], [place] [address]Dr. Nahed Yañez CAST NONE SEEN Normal NONE SEEN [facility] Comment on above: Performed By: #### NUNU DOVERO ####[facility] Rtbpnsmiqh69[address] [place], [place] [address]Dr. Nahed Yañez Crystals LM Nom (Urine sed) NONE SEEN Normal NONE SEEN [facility] Comment on above: Performed By: #### YARELIS DOVE ####[facility] Agxhaeswoe64[address] [place], [place] [address]Dr. Nahed Yañez Epithelial cells LM Ql (Urine sed) MODERATE Abnormal NONE SEEN /RARE [facility] Comment on above: Performed By: #### NUNU DOVERO ####[facility] Dazpxmxzpz[address] [place], [place] [address]Dr. Nahed Yañez MUCOUS SMALL Abnormal NONE SEEN [facility] Comment on above: Performed By: #### NUNU DOVERO ####[facility] Dtzluchjwn6[address] [place], [place] [address]Dr. Nahed Yañez RBC 2-5 Abnormal 0-2 [facility] Comment on above: Performed By: #### NUNU DOVERO ####[facility] Wrwuyrjtnu[address] [place], [place] [address]Dr. Nahed Yañez WBC 2-5 Abnormal NONE SEEN [facility] Comment on above: Performed By: #### NUNU DOVERO ####[facility] Vqeyyvpesb[address] [place], [place] [address]Dr. Nahed Yañez XR CHEST 2 Von 10-31-2021 XR CHEST 2 V Normal [facility] CULTURE URINEon 10-30-2021 CULTURE URINE Culture Observations : MODERATE GROWTH OF MIXED GENITAL MIGUEL. NO POTENTIAL PATHOGENS SEEN. Normal [facility] Comment on above: Performed By: #### U RCX ####[facility] [address] [place] [id number]. Nahed Yañez US JESSEE DOP LEG BILon US JESSEE DOP LEG MOHAN Normal [facility] CARDIAC FRANCISCO ADMITon 022 CK [Catalytic activity/Vol] 16 U/L Critically low 26-192 [facility] Comment on above: Performed By: #### C RENZO, CMADM ####[facility] Tspmlzwajd5494 [place] [address]Dr. Nahed Yañez CK.MB [Mass/Vol] 0.56 ng/mL Normal <=3.60 [facility] Comment on above: Performed By: #### C RENZO, ERICK ####[facility] Jrnlpwluxd3335 [place] [address]Dr. Nahed Yañez HSTROP 44.3 pg/mL Normal 4.0-51.3 [facility] Comment on above: Result Comment: CUT- OFF POINTS HAVE BEEN ESTABLISHED BASED ON THE FOURTH UNIVERSAL DEFINITIONS OF MYOCARDIALINFARCTION. THE UPPER REFERENCE LIMIT (URL) OF TROPONIN, DEFINED THE 99TH PERCENTILE OFcTnI DISTRIBUTION IN A REFERENCE POPULATION, HAS BEEN CONFIRMED THE DECISION THRESHOLDFOR SD DIAGNOSIS. Performed By: #### C ERICK MULLER ####[facility] Efchnkilka43[address] [place] [address]Dr. Nahed Yañez ANDRE 42 ng/mL Normal 9-82 [facility] Comment on above: Performed By: #### C RENZO, GRISELDADM ####[facility] Zbxcvuhkeq5654 [place] [address]Dr. Nahed Yañez CBC AUTO DIFFon 09-07-2021 BASO # 0.0 103/ul Normal 0.0-0.1 [facility] Comment on above: Performed By: #### C BC ####[facility] Lqilrwyawn4305 [place] [address]Dr. Nahed Yañez Basophils/100 WBC (Bld) 0.4 % Normal 0.2-2.0 [facility] Comment on above: Performed By: #### C BC ####[facility] Iivcabsgow3212 [place] [address]Dr. Nahed Yañez EO # 0.2 103/ul Normal 0.0-0.7 [facility] Comment on above: Performed By: #### C BC ####[facility] Zxyiosixyg4264 [place] [address]Dr. Nahed Yañez Eosinophils/100 WBC (Bld) 2.4 % Normal 0.9-7.0 [facility] Comment on above: Performed By: #### C BC ####[facility] Hlpkkbqxhk4521 [place] [address]Dr. Nahed Yañez Erythrocyte distribution width (RBC) [Ratio] 15.1 % Critically high 11.0-15.0 [facility] Comment on above: Performed By: #### C BC ####[facility] Rucsxidfyr[address] [place], [place] [address]Dr. Nahed Yañez Hematocrit (Bld) [Volume fraction] 42.6 % Normal 36.0-48.0 [facility] Comment on above: Performed By: #### C BC ####[facility] Qlxupvhabx[address] [place], [place] [address]Dr. Nahed Yañez Hemoglobin (Bld) [Mass/Vol] 13.4 g/dL Normal 12.0-16.0 [facility] Comment on above: Performed By: #### C BC ####[facility] Ecfwqwsgrk[address] [place], [place] [address]Dr. Nahed Yañez IG # 0.33 10e3/ul Critically high 0.00-0.03 [facility] Comment on above: Performed By: #### C BC ####[facility] Wetpbodeqp14[address] [place], [place] [address]Dr. Nahed Yañez IG % 3.9 % Critically high 0.0-0.5 [facility] Comment on above: Performed By: #### C BC ####[facility] Mrtlvpxuui3472[address] [place], [place] [address]Dr. Nahed Yañez LYMPH # 2.6 103/ul Normal 1.2-3.8 [facility] Comment on above: Performed By: #### C BC ####[facility] Yduxfxvhll4316[address] [place], [place] [address]Dr. Nahed Yañez Lymphocytes/100 WBC (Bld) 30.3 % Normal 20.5-60.0 [facility] Comment on above: Performed By: #### C BC ####[facility] Hlwqmghkrg5467 [place] [address]DrShaun Yañez MANUAL DIFF REQ NO Normal [facility] Comment on above: Performed By: #### C BC ####[facility] Ggxuswfvzx3761 [place] [address]Dr. Nahed Yañez MCH (RBC) [Entitic mass] 28.6 pg Normal 26.7-34.0 [facility] Comment on above: Performed By: #### C BC ####[facility] Njifezlcqi1701[address] [place], [place] [address]Dr. Nahed Yañez MCHC (RBC) [Mass/Vol] 31.5 g/dL Normal 29.9-35.2 [facility] Comment on above: Performed By: #### C BC ####[facility] Ilfvsmdilc44[address] [place], [place] [address]DrShaun Yañez MCV (RBC) [Entitic vol] 90.8 fL Normal 81.0-99.0 [facility] Comment on above: Performed By: #### C BC ####[facility] Pcwvpqjkrg[address] [place], [place] [address]DrShaun Yañez MONO # 0.7 103/ul Normal 0.3-0.8 [facility] Comment on above: Performed By: #### C BC ####[facility] Bjpzcbmqon3072[address] [place], [place] [address]DrShaun Yañez Monocytes/100 WBC (Bld) 8.0 % Normal 1.7-12.0 [facility] Comment on above: Performed By: #### C BC ####[facility] Vszuvmeius415[address] [place], [place] [address]DrShaun Yañez NEUT # 4.7 103/ul Normal 1.4-6.5 [facility] Comment on above: Performed By: #### C BC ####[facility] Exdhqwqaxo229[address] [place], [place] [address]DrShaun Yañez Neutrophils/100 WBC (Bld) 55.0 % Normal 43.0-75.0 [facility] Comment on above: Performed By: #### C BC ####[facility] Vdzjpikmfh7881 [place] [address]DrShaun Yañez Platelet mean volume (Bld) [Entitic vol] 8.9 fL Critically low 9.5-13.5 [facility] Comment on above: Performed By: #### C BC ####[facility] Qaviqaystw4169 [place] [address]DrShaun Yañez PLT 270 103/ul Normal 150-450 [facility] Comment on above: Performed By: #### C BC ####[facility] Wnciugblmf[address] [place], [place] [address]Dr. Nahed Yañez RBC 4.69 106/ul Normal 4.20-5.40 [facility] Comment on above: Performed By: #### C BC ####[facility] Nscufwtglp4000[address] [place], [place] [address]DrShaun Yañez WBC 8.5 103/ul Normal 4.0-11.0 [facility] Comment on above: Performed By: #### C BC ####[facility] Toocufvfep1414[address] [place], [place] [address]DrShaun Yañez PROF 14(COMP METB)on 022 Albumin [Mass/Vol] 2.7 g/dL Critically low 3.4-5.0 [facility] Comment on above: Performed By: #### C ERICK MULLER ####[facility] Timbgqgkln3874[address] [place], [place] [address]DrShaun Yañez Albumin/Globulin [Mass ratio] 0.8 {ratio} Normal [facility] Comment on above: Performed By: #### C ERICK MULLER ####[facility] Fjwrwxvpbd8[address] [place], [place] [address]DrShaun Yañez ALP [Catalytic activity/Vol] 65 U/L Normal 46-116 [facility] Comment on above: Performed By: #### C ERICK MULLER ####[facility] Vtmmesnvjk0[address] [place], [place] [address]DrShaun Yañez ALT [Catalytic activity/Vol] 27 U/L Normal 14-59 [facility] Comment on above: Performed By: #### C ERICK MULLER ####[facility] Juryjwgbkj7562[address] [place], [place] [address]Dr. Nahed Yañez Anion gap [Moles/Vol] 10.3 mmol/L Normal [facility] Comment on above: Performed By: #### C ERICK MULLER ####[facility] Fjyyihcnjn9[address] [place], [place] [address]Dr. Nahed Yañez AST [Catalytic activity/Vol] 11 U/L Critically low 15-37 [facility] Comment on above: Performed By: #### C ERICK MULLER ####[facility] Upcwxrowny99[address] [place], [place] [address]Dr. Nahed Yañez Bilirubin [Mass/Vol] 0.3 mg/dL Normal 0.2-1.0 [facility] Comment on above: Performed By: #### C ERICK MULLER ####[facility] Obstzvticy32[address] [place], [place] [address]Dr. Nahed Yañez Calcium [Mass/Vol] 8.1 mg/dL Critically low 8.5-10.1 [facility] Comment on above: Performed By: #### C ERICK MULLER ####[facility] Yaqbzayxdm05[address] [place], [place] [address]Dr. Nahed Yañez Chloride [Moles/Vol] 98 mmol/L Normal 98-107 [facility] Comment on above: Performed By: #### C ERICK MULLER ####[facility] Ldreogscbk62[address] [place], [place] [address]Dr. Nahed Yañez CO2 [Moles/Vol] 32.5 mmol/L Critically high 21.0-32.0 [facility] Comment on above: Performed By: #### C ERICK MULLER ####[facility] Kkuckzdrzy8[address] [place], [place] [address]Dr. Nahed Yañez Creatinine [Mass/Vol] 0.94 mg/dL Normal 0.55-1.02 [facility] Comment on above: Performed By: #### C ERICK MULLER ####[facility] Tczwnvqete7193 [place] [address]Dr. Nahed Yañez EGFR-AF GREEK >60 Normal >=60 [facility] Comment on above: Performed By: #### C RENZO, CMAJOSE ####[facility] Bropabtlqy7050 [place] [address]Dr. Nahed Yañez EGFR-NON AF GREEK >60 Normal >=60 [facility] Comment on above: Performed By: #### C RENZO, CMAJOSE ####[facility] Sipzbjrhxf5790 [place] [address]Dr. Nahed Yañez Globulin (S) [Mass/Vol] 3.2 g/dL Normal [facility] Comment on above: Performed By: #### C RENZO, CMAJOSE ####[facility] Wytokibudk4509 [place] [address]Dr. Nahed Yañez Glucose [Mass/Vol] 123 mg/dL Critically high 74-106 [facility] Comment on above: Performed By: #### C RENZO, CMAJOSE ####[facility] Capxfohoqz4706 [place] [address]Dr. Nahed Yañez Potassium [Moles/Vol] 3.8 mmol/L Normal 3.5-5.1 [facility] Comment on above: Performed By: #### C RENZO, CMADM ####[facility] Wjyrsupify6457 [place] [address]Dr. Nahed Yañez Protein [Mass/Vol] 5.9 g/dL Critically low 6.1-8.2 [facility] Comment on above: Performed By: #### C RENZO, CMADM ####[facility] Ubkotwocxo4769 [place] [address]Dr. Nahed Yañez Sodium [Moles/Vol] 137 mmol/L Normal 136-145 [facility] Comment on above: Performed By: #### C RENZO, CMADM ####[facility] Mffdyjkyrq0837 [place] [address]Dr. Nahed Yañez Urea nitrogen [Mass/Vol] 20.0 mg/dL Critically high 7.0-18.0 [facility] Comment on above: Performed By: #### C RENZO, CMADM ####[facility] Qkdtbcmcqd[address] [place], [place] [address]Dr. Nahed Yañez Urea nitrogen/Creatinine [Mass ratio] 21.3 mg/mg Normal [facility] Comment on above: Performed By: #### C MP, CMADM ####[facility] Zihssbvnul[address] [place], [place] [address]Dr. Nahed Yañez BNPon 09-06-2021 Natriuretic peptide B (Bld) [Mass/Vol] 923.0 pg/mL Critically high <=900.0 [facility] Comment on above: Performed By: #### B MP, BNP, HSTROPN ####[facility] Giiqtevodq[address] [place], [place] [address]Dr. Nahed Yañez CBC AUTO DIFFon 09-06-2021 BASO # 0.1 103/ul Normal 0.0-0.1 [facility] Comment on above: Performed By: #### C BC ####[facility] Ifffndlwja25[address] [place], [place] [address]Dr. Nahed Yañez Basophils/100 WBC (Bld) 0.6 % Normal 0.2-2.0 [facility] Comment on above: Performed By: #### C BC ####[facility] Dpioksdrgg[address] [place], [place] [address]Dr. Nahed Yañez EO # 0.3 103/ul Normal 0.0-0.7 [facility] Comment on above: Performed By: #### C BC ####[facility] Vfbwecfzdd56[address] [place], [place] [address]Dr. Nahed Yañez Eosinophils/100 WBC (Bld) 3.0 % Normal 0.9-7.0 [facility] Comment on above: Performed By: #### C BC ####[facility] Alsuahbigb[address] [place], [place] [address]Dr. Nahed Yañez Erythrocyte distribution width (RBC) [Ratio] 15.0 % Normal 11.0-15.0 [facility] Comment on above: Performed By: #### C BC ####[facility] Yveikuoxpd16[address] [place], [place] [address]Dr. Nahed Yañez Hematocrit (Bld) [Volume fraction] 48.1 % Critically high 36.0-48.0 [facility] Comment on above: Performed By: #### C BC ####[facility] Affhcmgehj5[address] [place] [address]Dr. Nahed Yañez Hemoglobin (Bld) [Mass/Vol] 15.5 g/dL Normal 12.0-16.0 [facility] Comment on above: Result Comment: delt a check called to Manisha WALKER Performed By: #### C BC ####[facility] Xinmoagpxn5504 [place] [address]Dr. Nahed Yañez IG # 0.46 10e3/ul Critically high 0.00-0.03 [facility] Comment on above: Performed By: #### C BC ####[facility] Ydaymrbiij2164 [place] [address]Dr. Nahed Yañez IG % 4.2 % Critically high 0.0-0.5 [facility] Comment on above: Performed By: #### C BC ####[facility] Krnxqypsds5747 [place] [address]Dr. Nahed Yañez LYMPH # 2.2 103/ul Normal 1.2-3.8 [facility] Comment on above: Performed By: #### C BC ####[facility] Gjxetnrhdb3340 [place] [address]Dr. Nahed Yañez Lymphocytes/100 WBC (Bld) 20.6 % Normal 20.5-60.0 [facility] Comment on above: Performed By: #### C BC ####[facility] Nvnxjjdgcn3627 [place] [address]Dr. Nahed Yañez MANUAL DIFF REQ NO Normal [facility] Comment on above: Performed By: #### C BC ####[facility] Tblonqnslv5786 [place] [address]Dr. Nahed Yañez MCH (RBC) [Entitic mass] 28.2 pg Normal 26.7-34.0 [facility] Comment on above: Performed By: #### C BC ####[facility] Jvjemguybm0700 [place] [phone]. Nahed Yañez MCHC (RBC) [Mass/Vol] 32.2 g/dL Normal 29.9-35.2 [facility] Comment on above: Performed By: #### C BC ####[facility] Xxlbkskjtt8532 [place] [phone]. Nahed Yañez MCV (RBC) [Entitic vol] 87.5 fL Normal 81.0-99.0 [facility] Comment on above: Performed By: #### C BC ####[facility] Dszopauhhg5131 [place] [address]Dr. Nahed Yañez MONO # 0.7 103/ul Normal 0.3-0.8 [facility] Comment on above: Performed By: #### C BC ####[facility] Mvkignysue9164 [place] [address]Dr. Nahed Yañez Monocytes/100 WBC (Bld) 6.4 % Normal 1.7-12.0 [facility] Comment on above: Performed By: #### C BC ####[facility] Bsfbljgbhe1655 [place] [address]Dr. Nahed Yañez NEUT # 7.1 103/ul Critically high 1.4-6.5 [facility] Comment on above: Performed By: #### C BC ####[facility] Xdqnzepovs1198 [place] [phone]. Nahed Yañez Neutrophils/100 WBC (Bld) 65.2 % Normal 43.0-75.0 [facility] Comment on above: Performed By: #### C BC ####[facility] Dcrbaqurzs6806 [place] [phone]. Nahed Yañez Platelet mean volume (Bld) [Entitic vol] 8.9 fL Critically low 9.5-13.5 [facility] Comment on above: Performed By: #### C BC ####[facility] Xfpkdgbeum2874 [place] [phone]. Nahed Otilio PLT 390 103/ul Normal 150-450 [facility] Comment on above: Performed By: #### C BC ####[facility] Kpmiutwntv364[address] [place], [place] [address]Br. Nahed Yañez RBC 5.50 106/ul Critically high 4.20-5.40 [facility] Comment on above: Performed By: #### C BC ####[facility] Lqqmztoqry3750 [place] [phone]. Nahed Yañez WBC 10.8 103/ul Normal 4.0-11.0 [facility] Comment on above: Performed By: #### C BC ####[facility] Odkpwwqdda5412 [place] [phone]. Nahed Yañez CULTURE BLOODon 09-06-2021 Microscopic examination of blood, culture Culture Observations: NO GROWTH AT 5 DAYS. Isolate 1 BC_BA_NA Normal [facility] Comment on above: Performed By: #### B LDCX2 ####[facility] Irolktnaly6599 [place] [phone]. Nahed Yañez Microscopic examination of blood, culture Culture Observations: NO GROWTH AT 5 DAYS. Normal [facility] Comment on above: Performed By: #### B LDCX1 ####[facility] Sexctabdud7376 [place] [phone]. Nahed Yañez [facility]on 08-13 SARS-CoV-2 (COVID-19) RNA MIRNA+probe Ql (Unsp spec) Not detected Normal NOT DETECTED [facility] [...] for this test is supported by the Records Analyst of Health and Human Service's declaration that [...] be used). Performed By: #### C VDTBH ####[facility] Donccmqtlg2067 [place] [address]Dr. Nahed Yañez LACTATE/LACTIC ACIDon 2021 Lactate [Moles/Vol] 0.1 mmol/L Critically low 0.4-2.0 [facility] Comment on above: Performed By: #### L ACT ####[facility] Xcwqwvekru0705 [place] [address]Dr. Nahed Yañez Lactate [Moles/Vol] 1.5 mmol/L Normal 0.4-2.0 [facility] Comment on above: Performed By: #### L ACT ####[facility] Oezzkdlzoq[address] [place], [place] [address]Dr. Nahed Yañez POINT OF CARE GLUCOSEon 08-13 Glucose [Mass/Vol] 201 mg/dL Critically high 74-106 [facility] Comment on above: Performed By: #### P OCGLUC ####[facility] Fjjfxewtgn[address] [place], [place] [address]Dr. Nahed Yañez PROF CHEM 8 (BAS METB)on Anion gap [Moles/Vol] 14.8 mmol/L Normal [facility] Comment on above: Performed By: #### B MP, BNP, HSTROPN ####[facility] Oviwwgbwrw2857 [place] [address]Dr. Nahed Yañez Calcium [Mass/Vol] 8.8 mg/dL Normal 8.5-10.1 [facility] Comment on above: Performed By: #### B MP, BNP, HSTROPN ####[facility] [address] [place], [place] [address]Dr. Nahed Yañez Chloride [Moles/Vol] 95 mmol/L Critically low 98-107 [facility] Comment on above: Performed By: #### B MP, BNP, HSTROPN ####[facility] [address] [place], [place] [address]Dr. Nahed Yañez CO2 [Moles/Vol] 28.7 mmol/L Normal 21.0-32.0 [facility] Comment on above: Performed By: #### B MP, BNP, HSTROPN ####[facility] [address] [place] [address]Dr. Nahed Yañez Creatinine [Mass/Vol] 0.98 mg/dL Normal 0.55-1.02 [facility] Comment on above: Performed By: #### B MP, BNP, HSTROPN ####[facility] [address] [place], [place] [address]Dr. Nahed Yañez EGFR-AF GREEK >60 Normal >=60 [facility] Comment on above: Performed By: #### B MP, BNP, HSTROPN ####[facility] [address] [place], [place] [address]Dr. Rosemarieashley Otilio EGFR-NON AF GREEK 58 mL/min/1.73m2 Critically low >=60 [facility] Comment on above: Performed By: #### B MP, BNP, HSTROPN ####[facility] [address] [place], [place] [address]Dr. Rosemarieashley Yañez Glucose [Mass/Vol] 150 mg/dL Critically high 74-[address] [facility] Comment on above: Performed By: #### B MP, BNP, HSTROPN ####[facility] [address] [place], [place] [address]Dr. Nahed Yañez Potassium [Moles/Vol] 4.5 mmol/L Normal 3.5-5.1 [facility] Comment on above: Performed By: #### B MP, BNP, HSTROPN ####[facility] [address] [place], [place] [address]Dr. Rosemarieashley Yañez Sodium [Moles/Vol] 134 mmol/L Critically low 136-145 [facility] Comment on above: Performed By: #### B MP, BNP, HSTROPN ####[facility] [address] [place], [place] [address]Dr. Nahed Yañez Urea nitrogen [Mass/Vol] 19.0 mg/dL Critically high 7.0-18.0 [facility] Comment on above: Performed By: #### B MP, BNP, HSTROPN ####[facility] [address] [place], [place] [address]Fr. Nahed Yañez Urea nitrogen/Creatinine [Mass ratio] 19.4 mg/mg Normal [facility] Comment on above: Performed By: #### B MP, BNP, HSTROPN ####[facility] [address] [place] [id number]. Nahed Yañez TROPONIN, HIGH SENSITIVITYon 09-06-2021 HSTROP 50.4 pg/mL Normal 4.0-51.3 [facility] Comment on above: Result Comment: CUT- OFF POINTS HAVE BEEN ESTABLISHED BASED ON THE FOURTH UNIVERSAL DEFINITIONS OF MYOCARDIALINFARCTION. THE UPPER REFERENCE LIMIT (URL) OF TROPONIN, DEFINED THE 99TH PERCENTILE OFcTnI DISTRIBUTION IN A REFERENCE POPULATION, HAS BEEN CONFIRMED THE DECISION THRESHOLDFOR SD DIAGNOSIS. Performed By: #### B MP, BNP, HSTROPN ####[facility] [address] [place] [id number]. Nahed Yañez XR CHEST 1 Von 09-06-2021 XR CHEST 1 V Normal [facility] CBC with Diffon 09-08-2018 Abs. Basophil 0.03 k/uL Normal 0.00-0.20 [facility] Comment on above: Performed By: #### L IP, CMPX, CDP #### [facility] [address] [place] [address] [employer] [place] [place] [employer]: Nino Farias MD Abs.Imm.Granulocyte 0.05 k/uL Normal 0.00-0.30 [facility] Comment on above: Performed By: #### L IP, CMPX, CDP #### [facility] [address] [place] [address] [employer] [place] [place]: Nino Farias MD Abs.Neutrophil (Seg) 11.30 k/uL High 1.50-8.10 [facility] Comment on above: Performed By: #### L IP, CMPX, CDP #### [facility] [address] [place], [place] [id number] [employer] [place]: Nino Farias MD Basophils/100 WBC (Bld) 0 % Normal 0-2 [facility] Comment on above: Performed By: #### L IP, CMPX, CDP #### [facility] [address] [place], [place] [id number] [employer] [place]: Nino Farias MD Eosinophils #/vol (Bld) 0.17 10*3/uL Normal 0.00-0.44 [facility] Comment on above: Performed By: #### L IP, CMPX, CDP #### [address] [place], [facility]83 [employer] [place] [place]: Nino Farias MD Eosinophils/100 WBC (Bld) 1 % Normal 1-4 [facility] Comment on above: Performed By: #### L IP, CMPX, CDP #### [address] [place], [facility]83 [employer] [place] [place]: Nino Farias MD Erythrocyte distribution width Ratio (RBC) 12.5 % Normal 11.8-14.4 [facility] Comment on above: Performed By: #### L IP, CMPX, CDP #### [address] [place], [facility]83 [employer] [place] [place]: Nino Farias MD Hematocrit Volume Fraction (Bld) 36.8 % Normal 36.3-47.1 [facility] Comment on above: Performed By: #### L IP, CMPX, CDP #### [address] [place], [place] [id number] [employer] [place] [place]: Nino Farias MD Hemoglobin mass conc (Bld) 11.6 g/dL Low 11.9-15.1 [facility] Comment on above: Performed By: #### L IP, CMPX, CDP #### [address] [place], [facility]83 [employer] [place] [place]: Nino Farias MD Immature granulocytes #/vol (Bld) 0 % Normal 0 [facility] Comment on above: Performed By: #### L IP, CMPX, CDP #### [facility] [address] [place], [place] [id number] [employer] [place] [place]: Nino Farias MD Lymphocytes #/vol (Bld) 2.56 10*3/uL Normal 1.10-3.70 [facility] Comment on above: Performed By: #### L IP, CMPX, CDP #### [facility] [address] [place], [facility]83 [employer] [place] [place]: Nino Farias MD Lymphocytes/100 WBC (Bld) 18 % Low 24-43 [facility] Comment on above: Performed By: #### L IP, CMPX, CDP #### [address] [place], [facility]83 [employer] [place] [place]: Nino Farias MD MCH Entitic mass (RBC) 30.6 pg Normal 25.2-33.5 [facility] Comment on above: Performed By: #### L IP, CMPX, CDP #### [address] [place], [facility]83 [employer] [place] [place]: Nino Farias MD MCHC mass conc (RBC) 31.5 g/dL Normal 28.4-34.8 [facility] Comment on above: Performed By: #### L IP, CMPX, CDP #### [address] [place], [place] [id number] [employer] [place]: Nino Farias MD MCV Entitic volume (RBC) 97.1 fL Normal 82.6-102.9 [facility] Comment on above: Performed By: #### L IP, CMPX, CDP #### [facility] [address] [place], [place] [address] [employer] [place]: Nino Farias MD Monocytes #/vol (Bld) 0.55 10*3/uL Normal 0.10-1.20 [facility] Comment on above: Performed By: #### L IP, CMPX, CDP #### [facility] [address] [place], [place] [id number] [employer] [place] [place]: Nino Farias MD Monocytes/100 WBC (Bld) 4 % Normal 3-12 [facility] Comment on above: Performed By: #### L IP, CMPX, CDP #### [facility] [address] [place], [place] [address] [employer] [place]: Nino Farias MD Neutrophil (Seg) 77 % High 36-65 [facility] Comment on above: Performed By: #### L IP, CMPX, CDP #### [facility] [address] [place], [place] [id number] [employer] [place]: Nino Farias MD NRBC Automated 0.0 per 100 WBC Normal 0.0 [facility] Comment on above: Performed By: #### L IP, CMPX, CDP #### [facility] [address] [place], [place] [address] [employer] [place] [place]: Nino Farias MD Platelet mean volume Entitic volume (Bld) 9.2 fL Normal 8.1-13.5 [facility] Comment on above: Performed By: #### L IP, CMPX, CDP #### [facility] [address] [place], [place] [address] [employer] [place]: Nino Farias MD Platelets #/vol (Bld) 305 10*3/uL Normal 138-453 [facility] Comment on above: Performed By: #### L IP, CMPX, CDP #### [facility] [address] [place], [place] [address] [employer] [place] [place]: Nino Farias MD RBC #/vol (Bld) 3.79 10*6/uL Low 3.95-5.11 [facility] Comment on above: Performed By: #### L IP, CMPX, CDP #### [facility] [address] [place] [address] [employer] [place]: Nino Farias MD WBC #/vol (Bld) 14.7 10*3/uL High 3.5-11.3 [facility] Comment on above: Performed By: #### L IP, CMPX, CDP #### [facility] [address] [place], [place] [id number] [employer] [place] [place]: Nino Farias MD Auto Diff Performed NOT REPORTED Normal [facility] Comment on above: Performed By: #### L IP, CMPX, CDP #### [address] [place] [address] [place] [place] [place]: Nino Farias MD Platelets #/vol (Bld) NOT REPORTED Normal [facility] Comment on above: Performed By: #### L IP, CMPX, CDP #### [facility] [address] [place] [address] [place] [address] [employer] [place] [place]: Nino Farias MD RBC morphology finding Nom (Bld) NOT REPORTED Normal [facility] Comment on above: Performed By: #### L IP, CMPX, CDP #### [address] [place] [address] [employer] [place] [place]: Nino Farias MD WBC Morphology NOT REPORTED Normal [facility] Comment on above: Performed By: #### L IP, CMPX, CDP #### [facility] [address] [place] [address] [place] [address] [employer] [place] [place]: Nino Farias MD Comp Metabolic Pr/rfx MGon 0 09-08-2018 ALT enzyme act/vol U/L Low -33 [facility] Comment on above: Performed By: #### L IP, CMPX, CDP #### [facility] [address] [place], [place] [address] [employer] [place]: Nino Farias MD (cont.) Normal [facility] Comment on above: Result Comment: Aver age GFR for 50-59 years old: 93 mL/min/1.73sq m Chronic Kidney Disease: <60 mL/min/1.73sq m Kidney failure: <15 mL/min/1.73sq m eGFR calculated using average adult body mass. Additional eGFR calculator available at: http://[email or web address] Performed By: #### L IP, CMPX, CDP #### [facility] [address] [place] [address] [place]: Nino Farias MD Albumin mass conc 4.0 g/dL Normal 3.5-5.2 [facility] Comment on above: Performed By: #### L IP, CMPX, CDP #### [facility] [address] [place] [address] [place] [place]: Nino Farias MD Albumin/Globulin mass ratio 1.3 {ratio} Normal 1.0-2.5 [facility] Comment on above: Performed By: #### L IP, CMPX, CDP #### [facility] [address] [place] [address] [employer] [place] [place]: Nino Farias MD Alkaline Phos 58 U/L Normal 35-104 [facility] Comment on above: Performed By: #### L IP, CMPX, CDP #### [facility] [address] [place] [address] [place] [place] [place]: Nino Farias MD Anion gap molar conc 8 mmol/L Low 9-17 [facility] Comment on above: Performed By: #### L IP, CMPX, CDP #### [facility] [address] [place] [address] [employer] [place] [place]: Nino Farias MD AST enzyme act/vol 20 U/L Normal <32 [facility] Comment on above: Performed By: #### L IP, CMPX, CDP #### [facility] [address] [place], [place] [address] [employer] [place] [place]: Nino Farias MD Bilirubin Ql (U) 0.17 mg/dL Low 0.3-1.2 [facility] Comment on above: Performed By: #### L IP, CMPX, CDP #### [facility] [address] [place], [place] [address] [employer]: Nino Farias MD BUN/CRE Ratio 15 Normal 9-20 [facility] Comment on above: Performed By: #### L IP, CMPX, CDP #### [facility] [address] [place], [place] [address] [employer] [place] [place]: Nino Farias MD Calcium mass conc 9.3 mg/dL Normal 8.6-10.4 [facility] Comment on above: Performed By: #### L IP, CMPX, CDP #### [facility] [address] [place], [place] [id number] [employer] [place] [place]: Nino Farias MD Chloride molar conc 97 mmol/L Low 98-107 [facility] Comment on above: Performed By: #### L IP, CMPX, CDP #### [facility] [address] [place] [address] [place] [place], [place] 140[address] [employer] [place] [place]: Nino Farias MD CO2 molar conc 31 mmol/L Normal 20-31 [facility] Comment on above: Performed By: #### L IP, CMPX, CDP #### [facility] [address] [place], [place] [address] [place] [place]: Nino Farias MD Creatinine mass conc 1.22 mg/dL High 0.50-0.90 [facility] Comment on above: Performed By: #### L IP, CMPX, CDP #### [facility] [address] [place], [place] [address] [place] [place]: Nino Farias MD GFR, Amer 55 mL/min Low >60 [facility] Comment on above: Performed By: #### L IP, CMPX, CDP #### [facility] [address] [place] [address] [place] [place]: Nino Farias MD GFR,non Amer 45 mL/min Low >60 [facility] Comment on above: Performed By: #### L IP, CMPX, CDP #### [facility] [address] [place] [address] [place] [place] [place]: Nino Farias MD Glucose mass conc 93 mg/dL Normal 70-99 [facility] Comment on above: Performed By: #### L IP, CMPX, CDP #### [facility] [address] [place] [address] [place] [place]: Nino Farias MD Potassium molar conc 4.5 mmol/L Normal 3.7-5.3 [facility] Comment on above: Performed By: #### L IP, CMPX, CDP #### [facility] [address] [place] [address] [place] [place]: Nino Farias MD Protein mass conc 7.0 g/dL Normal 6.4-8.3 [facility] Comment on above: Performed By: #### L IP, CMPX, CDP #### [facility] [address] [place] [address] [place] [place] [place]: Nino Farias MD Sodium molar conc 136 mmol/L Normal 135-144 [facility] Comment on above: Performed By: #### L IP, CMPX, CDP #### [facility] [address] [place] [address] [employer] [place] [place]: Nino Farias MD Staging: Normal [facility] Comment on above: Result Comment: Stag e 1: Some kidney damage normal GFR Stage 2: Mild kidney damage GFR 60-89 Stage 3: Moderate kidney damage GFR 30-59 Stage 4: Severe kidney damage GFR 15-29 Stage 5: Severe kidney damage GFR <15 ESRD - chronic treatment by dialysis or transplant Performed By: #### L IP, CMPX, CDP #### [facility] [address] [place], [place] [address] [employer] [place]: Nino Farias MD Urea nitrogen mass conc 18 mg/dL Normal 6-20 [facility] Comment on above: Performed By: #### L IP, CMPX, CDP #### [facility] [address] [place], [place] [id number] [employer] [place] [place]: Nino Farias MD Lactic Acidon 09-08-2018 Lactate molar conc 1.2 mmol/L Normal 0.5-2.2 [facility] Comment on above: Performed By: #### L AC #### [facility] [address] [place], [place] [id number] [employer] [place]: Nion Farias MD Lipaseon 09-08-2018 Lipase enzyme act/vol 27 U/L Normal 13-60 [facility] Comment on above: Performed By: #### L IP, CMPX, CDP #### [facility] [address] [place], [place] 268[address] [employer] [place]: Nino Farias MD UA w/Reflex Cultureon 2018 Acetoacetic Acid,Ur Negative Normal NEG [facility] Comment on above: Performed By: #### U MICAO, UAX #### [facility] [address] [place], [place] [id number] [employer] [place] [place]: Nino Farias MD Bilirubin.direct mass conc SMALL Abnormal NEG [facility] Comment on above: Performed By: #### U MICAO, UAX #### [facility] [address] [place] [address] [employer] [place] [place]: Nino Farias MD Color Nom (U) YELLOW Normal YEL [facility] Comment on above: Performed By: #### U MICAO, UAX #### [facility] [address] [place] [address] [employer] [place] [place]: Nino Farias MD Glucose mass conc Negative Normal NEG [facility] Comment on above: Performed By: #### U MICAO, UAX #### [facility] [address] [place], [place] [address] [employer]: Nino Farias MD Hemoglobin mass conc (Bld) Negative Normal NEG [facility] Comment on above: Performed By: #### U MICAO, UAX #### [facility] [address] [place], [place] [address] [employer] [place] [place]: Nino Farias MD Leuckocyte Esterase Negative Normal NEG [facility] Comment on above: Performed By: #### U MICAO, UAX #### [facility] [address] [place], [place] [address] [employer] [place] [place]: Nino Farias MD Nitrite,Ur Negative Normal NEG [facility] Comment on above: Performed By: #### U MICAO, UAX #### [facility] [address] [place] [address] [employer] [place]: Nino Farias MD PH,Ur 5.5 Normal 5.0-9.0 [facility] Comment on above: Performed By: #### U MICAO, UAX #### [facility] [address] [place] [address] [employer]: Nino Farias MD Protein mass conc Negative Normal [facility] Comment on above: Performed By: #### U MICAO, UAX #### [facility] [address] [place], [place] [address] [employer] [place]: Nino Farias MD Spec. [place],Ur 1.010 Normal 1.010-1.020 [facility] Comment on above: Performed By: #### U MICAO, UAX #### [facility] [address] [place], [place] [address]64483 [employer]: Nino Farias MD Turbidity CLEAR Normal CLEAR [facility] Comment on above: Performed By: #### U MICAO, UAX #### [facility] [address] [address] [employer]: Nino Farias MD Urobilinogen,Ur Normal Normal NORM [facility] Comment on above: Performed By: #### U MICAO, UAX #### [facility] [address] [address] [employer] [place]: Nino Farias MD Comment NOT REPORTED Normal [facility] Comment on above: Performed By: #### U MICAO, UAX #### [facility] [address] [address] [employer] [place]: Nino Farias MD Urinalysis,Microon 9 ----- Normal [facility] Comment on above: Performed By: #### U MICAO, UAX #### [facility] [address] [place], [place] [id number] [employer] [place]: Nino Farias MD Bacteria LM.HPF #/area (Urine sed) TRACE Abnormal NONE [facility] Comment on above: Performed By: #### U MICAO, UAX #### [facility] [address] [place], [place] [address] [employer] [place]: Nino Farias MD Epithelial cells LM.HPF #/area (Urine sed) None Normal 0-25 [facility] Comment on above: Performed By: #### U MICAO, UAX #### [facility] [address] [place], [place] [id number] [employer] [place]: Nino Farias MD RBC #/vol (U) None Normal 0-2 [facility] Comment on above: Performed By: #### U MICAO, UAX #### [facility] [address] [address] [employer] [place]: Nino Farias MD WBC #/vol (U) 0 TO 2 Normal 0-5 [facility] Comment on above: Performed By: #### U MICAO, UAX #### [facility] [address] [place], [place] [id number] [employer] [place]: Nino Farias MD Amorphous sediment LM Ql (Urine sed) NOT REPORTED Normal NONE [facility] Comment on above: Performed By: #### U MICAO, UAX #### [facility] [address] [place] [address] [employer]: Nino Farias MD Casts LM.LPF #/area (Urine sed) NOT REPORTED Normal [facility] Comment on above: Performed By: #### U MICAO, UAX #### [facility] [address] [place] [address] [employer]: Nino Farias MD Crystals LM Nom (Urine sed) NOT REPORTED Normal [facility] Comment on above: Performed By: #### U MICAO, UAX #### [facility] [address] [place] [address] [employer]: Nino Farias MD Epithelial, Renal NOT REPORTED Normal 0 [facility] Comment on above: Performed By: #### U MICAO, UAX #### [facility] [address] [place], [place] [address] [employer] [place]: Nino Farias MD Mucus Strands NOT REPORTED Normal [facility] Comment on above: Performed By: #### U MICAO, UAX #### [facility] [address] [place] [address] [employer] [place]: Nino Farias MD Other Observations NOT REPORTED Normal NREQ [facility] Comment on above: Performed By: #### U MICAO, UAX #### [facility] [address] [place] [address] [employer]: Nino Farias MD Trichomonas NOT REPORTED Normal NONE [facility] Comment on above: Performed By: #### U MICAO, UAX #### [facility] [address] [place] [address] [employer] [place] [employer]: Nino Farias MD Yeast LM Ql (Urine sed) NOT REPORTED Normal NONE [facility] Comment on above: Performed By: #### U MICAO, UAX #### [facility] [address] [place] [address] [employer] [place]: Nino Farias MD Vital Signs Date Time Vital Sign Value Performing Clinician Faci lity 07-05-2023 22:13-0500 Diastolic blood pressure 74 mm[Hg] Arsenio Martin [facility] 07-05-2023 22:13-0500 Heart rate 62 /min Arsenio Mario [facility] 07-05-2023 22:13-0500 Mean blood pressure 85 mm[Hg] Arsenio Mario [facility] 07-05-2023 22:13-0500 Respiratory rate 14 /min Arsenio Mario [facility] 07-05-2023 22:13-0500 SaO2% (BldA) [Mass fraction] 99 % Arsenio Mario [facility] 07-05-2023 22:13-0500 Systolic blood pressure 107 mm[Hg] Arsenio Mario [facility] 07-05-2023 21:49-0500 Diastolic blood pressure 69 mm[Hg] Arsenio Mario [facility] 07-05-2023 21:49-0500 Heart rate 59 /min Arsenio Mario [facility] 07-05-2023 21:49-0500 Mean blood pressure 80 mm[Hg] Arsenio Mario [facility] 07-05-2023 21:49-0500 Respiratory rate 15 /min Arsenio Martin [facility] 07-05-2023 21:49-0500 SaO2% (BldA) [Mass fraction] 97 % Arsenio Mario [facility] 07-05-2023 21:49-0500 Systolic blood pressure 101 mm[Hg] Arsenio Mario [facility] 07-05-2023 21:02-0500 Diastolic blood pressure 77 mm[Hg] Arsenio Mario [facility] 07-05-2023 21:02-0500 Heart rate 60 /min Arsenioulises Martin [facility] 07-05-2023 21:02-0500 Mean blood pressure 86 mm[Hg] Arsenio Martin [facility] 07-05-2023 21:02-0500 Respiratory rate 16 /min Arsenio Martin [facility] 07-05-2023 21:02-0500 SaO2% (BldA) [Mass fraction] 99 % Arsenio Mario [facility] 07-05-2023 21:02-0500 Systolic blood pressure 105 mm[Hg] Arsenio Martin [facility] 07-05-2023 17:45-0500 Body temperature 97.52 [degF] Arsenio Martin [facility] 07-05-2023 16:27-0500 Body temperature 96.44 [degF] Arsenio Martin [facility] 07-05-2023 15:15-0500 gluc 136 mg/dL Arsenio Martin [facility] 07-05-2023 15:15-0500 gluc Arsenioulises Martin [facility] 07-05-2023 15:02-0500 Body temperature 95.9 [degF] Arsenio Mario [facility] 07-05-2023 15:02-0500 Heart rate 54 /min Arsenio Mario [facility] 07-05-2023 15:02-0500 Respiratory rate 16 /min Arsenio Mario [facility] 08-09-2022 17:25-0400 Diastolic blood pressure 64 mm[Hg] Arsenio Mario [facility] 08-09-2022 17:25-0400 Heart rate 75 /min Arsenio Mario [facility] 08-09-2022 17:25-0400 Mean blood pressure 83 mm[Hg] Arsenio Mario [facility] 08-09-2022 17:25-0400 Respiratory rate 16 /min Arsenio Mario [facility] 08-09-2022 17:25-0400 SaO2% (BldA) [Mass fraction] 96 % Arsenio Mario [facility] 08-09-2022 17:25-0400 Systolic blood pressure 122 mm[Hg] Arsenio Mario [facility] 08-09-2022 16:00-0400 Diastolic blood pressure 56 mm[Hg] Arsenio Mario [facility] 08-09-2022 16:00-0400 Heart rate 64 /min Arsenio Mario [facility] 08-09-2022 16:00-0400 Mean blood pressure 72 mm[Hg] Arsenio Mario [facility] 08-09-2022 16:00-0400 SaO2% (BldA) [Mass fraction] 92 % Arsenio Martin [facility] 08-09-2022 16:00-0400 Systolic blood pressure 103 mm[Hg] Arsenio Martin [facility] 08-09-2022 15:00-0400 Diastolic blood pressure 67 mm[Hg] Arsenio Martin [facility] 08-09-2022 15:00-0400 Heart rate 61 /min Arsenio Martin [facility] 08-09-2022 15:00-0400 Mean blood pressure 80 mm[Hg] Arsenio Martin [facility] 08-09-2022 15:00-0400 Systolic blood pressure 106 mm[Hg] Arsenio Martin [facility] 08-09-2022 14:03-0400 SaO2% (BldA) [Mass fraction] 94.1 % Arsenio Martin [facility] Resp Auto SS 08-09-2022 13:10-0400 Body temperature 98.24 [degF] Arsenio Martin [facility] 08-09-2022 13:10-0400 Heart rate 70 /min Arsenio Martin [facility] 08-09-2022 13:10-0400 Respiratory rate 18 /min Arsenio Martin [facility] Encounters Encounter Date Encounter Type Care Provider Facility Start: 09-10-2023 End: 09-10-2023 ambulatory EHAB [facility] Start: 08-11-2023 Evaluation and management of inpatient [facility] Start: 08-10-2023 Evaluation and management of inpatient [facility] Start: 08-10-2023 End: 08-11[facility]23 [facility]: 07-31-2023 End: 07-31-2023 ambulatory VINAY CHAPA [facility] Start: 07-11-2023 Evaluation and management of inpatient LOREE CHANCE [facility] Start: 07-08-2023 Evaluation and management of inpatient BARRETT LARSON [facility] Start: 07-06-2023 Evaluation and management of inpatient ISAIAHLAYNE LARSON [facility] Start: 07-06-2023 End: 07-11-2023 Evaluation and management of inpatient ARSENIO MARTIN [facility] Start: 07-05-2023 End: 07-06-2023 Emergency department patient visit Arsenio Martin Facility:[facility] Start: 07-05-2023 End: 07-05-2023 Emergency department patient visit Arsenio Martin [facility] Start: 06-29-2023 Evaluation and management of inpatient ROSALBA OLIVASWinston [facility] Start: 06-29-2023 End: 07-02-2023 Evaluation and management of inpatient SOCORRO Marquez CASTRO [facility] Start: 08-22-2022 End: 08-24-2022 Evaluation and management of inpatient DR ЕКАТЕРИНА ROBERT . Facility: Start: 08-09-2022 End: 08-09-2022 Emergency department patient visit Arsneio Martin Facility:[facility] Start: 08-09-2022 End: 08-09-2022 Emergency department patient visit Arsenio Martin [facility] Start: 07-30-2022 End: 08-01-2022 Evaluation and management of inpatient DR ЕКАТЕРИНА ROBERT . Facility: Start: 07-27-2022 End: 07-28-[address] ЕКАТЕРИНА ROBERT . Facility: Start: 05-08-2022 End: 05-09-[address] ЕКАТЕРИНА ROBERT . Facility:[facility] Start: 01-31-2022 End: 01-31-[address] ЕКАТЕРИНА ROBERT . Facility:[facility] Start: 11-01-2021 End: 11-03-2021 Evaluation and management of inpatient TAMIE FAJARDO Facility:[facility] Start: 10-31-2021 End: 11-01-2021 Evaluation and management of inpatient DR ЕКАТЕРИНА ROBERT . Facility: Start: 09-28-2021 End: 09-29-[address] ЕКАТЕРИНА ROBERT . Facility:[facility] Start: 09-06-2021 End: 09-07-[address] ЕКАТЕРИНА ROBERT . Facility: Start: 03-04-2021 End: 03-04-2021 Emergency department patient visit Magdalena Oconnor Facility:[facility] Start: 09-08-2018 End: 09-08-2018 Emergency department patient visit KEISHA DORADO JR [facility] Procedures Date Procedure Procedure Detail Performing Clinician Start: 08-02-2022 Microscopic examinat ion of blood, culture DR ЕКАТЕРИНА ROBERT . Comment on above: Performed By: #### B [id number] ####[facility] [address] [place] [address]Dr. Nahed Otilio Start: 11-02-2021 Antibody screen SAVANNAHI SA AD Comment on above: Performed By: #### 3 [id number], 16336 #### [facility] [address] [place] [address], [facility] Start: 07-16-2019 Phalangectomy of toe Fabián [...] Martin Payers Date Payer Category Payer Medicare [id number] 2021 Self-pay 2018 Medicare [id number] 1960 Unknown [id number] 2.16.8 [id number] 1960 Unknown [id number] 2.16.8 [id number] 1960 Unknown [id number] 2.16.84 0.1.328139.3.579.2.593 1960 Unknown [id number] 2.16.84 0.1.853335.3.579.2.593 1960 Unknown [id number] 2.16.84 0.1.553005.3.579.2.593 1960 Unknown [id number] 2.16.84 0.1.617204.3.579.2.593 1960 Unknown [id number] 2.16.84 0.1.753412.3.579.2.593 1960 Unknown [id number] 2.16.84 0.1.796216.3.579.2.593 1960 Unknown [id number] 2.16.84 0.1.579823.3.579.2.593 1960 Unknown [id number] 2.16.84 0.1.067117.3.579.2.593 1960 Unknown [id number] 2.16.8 40.1.537838.3.579.2.727 1960 Unknown [id number] 2.16.8 40.1.273348.3.579.2.727 1958 Unknown [id number] Unknown [id number] 2.16.8 [id number] Social History Date Type Detail Facility Start: 08-09-2022 Tobacco smoking status Heavy t obacco smoker (finding) [facility] Comment on above: 2 cigarettes a day Sex Assigned At Female [facility] Functional Status Date Assessment Result Facility 07-05-2023 Functional Status N/A [facility] 08-09-2022 Functional Status N/A [facility] Clinical Notes 11-03-2021 to 09-10-2023 Note Date & Type Note Facility 09-10-2023 Note [facility] Cardiology Clinic Note Chief Complaint: Patient here for follow up [facility]. She is doing much better and isn't having as much chest pain. She was started on isosorbide and carvedilol. She's breathing much better. HPI: Vivian Vann is a 63 y.o. female Recently discharged from [facility]; she is doing well Discharge Summary Final [...] shortness of breath and was admitted to [place] [facility] and diagnosed NSTEMI and transferred to [facility] for further care. Her BNP is severely [...] HFpEF as tolerated 4) outpatient follow-up with [facility] cardiology Procedures Performed: coronary angiogram, right heart catheterization, conscious sedation 21 min, ultrasound guidance for vascular access Procedure Description: The patient was brought to the cardiac catheterization lab in a fasting state. Informed written consent was obtained. she was prepped and draped in usual sterile fashion over the right wrist and right neck and (more content not included)... [facility] 08-11-2023 Note [facility] CARDIOLOGY INPAT IENT [...] or edema. Patient states she lives in [place] and does not have a car. This limits follow up for her pacemaker however she does have appt scheduled for 08/20 at our [facility]. Plan for a device check to [...] signed: ROSAMARIA ELENA (more content not included)... [facility] 08-11-2023 Note Hospital Medicine Discharge Summary [...] Your Medications These medications were sent to [facility]/pharmacy #[id number] [place] [place] [address] oxyCODONE-acetaminophen 5-325 mg tablet Vivian is allergic [...] rate 20, h (more content not included)... [facility] 08-10-2023 Note 08/10/23 3895 Admission Assessment Questions Verify insurance with patient [...] Yes Does the patient have a case manager specialist assigned to them through their insurance? No [...] to send link and activate MyChart? No [facility] 08-10-2023 Note Hospital Medicine History and Physical 08/10/2023 11:43 AM THE HOSPITALIST TEAM PREFERS TO USE [employer] CHAT FOR COMMUNICATION 7AM-7PM. IF I DO NOT RESPOND WITHIN 15 MINUTES, PLEASE PAGE ME/CALL THROUGH THE TELECOMMUNICATOR. FROM 7PM-7AM, PLEASE PAGE [phone](COVR) Chief Complaint pacemaker lead failure, status post [...] Bradycardia 07/06/2023 NSTEMI (non-ST elevated myocardial infarction) ([facility]) 06/29/2023 Other forms of angina pectoris 06/29/2023 Hypomagnesemia 06/29/2023 Acute midline low back pain without sciatica 06/29/2023 Coronary arteriosclerosis 11/24/2021 Hyperlipidemia 11/24/2021 Type 2 diabetes mellitus ([facility]) 11/24/2021 Acute non-ST segment elevation myocardial infarction ([facility]) 11/24/2021 Cigarette smoker 11/24/2021 Pacemaker lead failure [...] this hospital stay by a member of [facility] Medicine. Past Medical History No [...] Alcohol use: Not (more content not included)... [facility] 08-10-2023 Note Indications for vent ricular [...] of the upper extremity Loree Chance M.D. [facility] [employer]rappers[employer]ior business development analyst and Pediatrics Director: Cardiac Electrophysiology Program [facility] 08-10-2023 Note Patient: Vivian Dela Cruz or Procedure Information Date/Time: 08/10/23829 Procedure: Pacemaker lead revision - [employer]otron[employer] Location: [facility] MAGNETIC TAPE TYPEWRITER OPERATOR 1 / [facility] (Cath) Providers: Loree Chance [...] discussed with patient who. Additional Equipment Requests [facility] 07-11-2023 Note Hospital Medicine Discharge Summary [...] NP CARD Deirdre Moreno 08/06/2023 1:30 PM [facility] CV CLINIC DEVICE CHECK [facility] CARD DC HeartVAS Your medication list START taking these [...] 70.4 kg (1 (more content not included)... [facility] 07-11-2023 Note Occupational Therapy Occupational Therapy [...] Level of Function Prior Function Level of Thayne: Independent with ADLs and functional transfers, Independent [...] Eating meals?: None (Independent) Total Score OT [facility]: 24 Assessment/Plan OT Assessment OT Education/Comments: (PPM handout issued and discussed with good return demo) Plan OT Plan: No skilled OT OT Discharge Recommendations: Home OT - Discharge Recommendations Placed: Yes OT Goals Multi-Disciplinary Problems (from Occupational Therapy) Active Problems Not on file [facility] 07-11-2023 Note UTP CARDIOLOGY PROGR ESS [...] HFpEF as tolerated 4) outpatient follow-up with DC cardiology Echo 06/29/23: Left Ventricle: The left ventricle is normal size. Global left ventricular sys (more content not included)... [facility] 07-11-2023 Note Hospital Medicine Daily Progress Note - 07/11/2023 8:24 AM; Room: [address] [place] [address] Admission: 07/06/2023 12:25 AM; Length of stay: 5 days THE HOSPITALIST TEAM PREFERS TO USE [employer] CHAT FOR COMMUNICATION 7AM-7PM. IF I DO NOT RESPOND WITHIN 15 MINUTES, PLEASE PAGE ME/CALL THROUGH THE TELECOMMUNICATOR. FROM 7PM-7AM, PLEASE PAGE [phone](COVR) Code Status: Full Code Barriers to Discharge: [...] LDL 95 07/06/2023 No results found for: [id number] , IRON , TIBC , C3 , [...] clear. Normal heart (more content not included)... [facility] 07-10-2023 Note Indications for dual -chamber [...] of the upper extremity Loree Chance M.D. [facility] [employer] business development analyst and Pediatrics Director: Cardiac Electrophysiology Program [facility] 07-10-2023 Note Patient: Vivian Dela Cruz or Procedure Information Date/Time: 07/10/231499 Procedure: Implant PPM Location: [facility] MAGNETIC TAPE TYPEWRITER OPERATOR 1 / [facility] (Cath) Providers: Loree Chance [...] discussed with patient who. Additional Equipment Requests [facility] 07-10-2023 Note UTP CARDIOLOGY PROGR ESS [...] HFpEF as tolerated 4) outpatient follow-up with DC cardiology Echo 06/29/23: Left Ventricle: The left [...] 86 QT Interval 466 QTC CALCULATION(BAZETT) 476 R-Wataga 34 T Wave Wataga [address] & Marked [...] stable CAD Ventric (more content not included)... [facility] 07-10-2023 Note Hospital Medicine Daily Progress Note - 07/10/2023 8:08 AM; Room: [address] [place] [address] Admission: 07/06/2023 12:25 AM; Length of stay: 4 days THE HOSPITALIST TEAM PREFERS TO USE [employer] CHAT FOR COMMUNICATION 7AM-7PM. IF I DO NOT RESPOND WITHIN 15 MINUTES, PLEASE PAGE ME/CALL THROUGH THE TELECOMMUNICATOR. FROM 7PM-7AM, PLEASE PAGE [phone](COVR) Code Status: Full Code Barriers to Discharge: [...] LDL 95 07/06/2023 No results found for: [id number] , IRON , TIBC , C3 , [...] need to arrange for her transportation needs; copywriter provided printed information to Pt for local [employer] companies for Pt (more content not included)... [facility] 07-09-2023 Note Patient admitted to the hospital for: Bradycardia. Chart echo from 06/29/2023 reports: EF 60%. Echo report does Not qualify for Cardiac Rehab services per CMS eligibility criteria. A Cardiac Rehab referral must also meet CMS criteria. Marline Suarez, RN, BSN Cardiopulmonary Rehab Coordinator [facility] 07-09-2023 Note Cardiology Inpatient Progress Note [...] 86 QT Interval 466 QTC CALCULATION(BAZETT) 476 R-Wataga 34 T Wave Wat[place] [address] & Marked [...] Rainey (57) on 07/08/2023 12:23:36 PM 06/29/23 [facility] Final Impression: 1) Coronary angiogram shows stable CAD 2) right heart catheterization shows severely decompensated heart failure with mean wedge pressure 35 mmHg Plan: 1) optimal med therapy for CAD and HFpEF 2) Aspirin and high intensity statin therapy for CAD 3) optimize medical therapy for HFpEF as tolerated 4) outpatient follow-up with DC cardiology Hemodynamic Data: RA: 17 mmHg RV: [...] of bradycardia. Patient has been transferred to [facility] for consideration of pacemaker placement. As per patient, her heart rate was 18 at the outside hospital, however I could not confirm from any documentation. During the current hospitalization, so far patient's heart rate has been ranging 40-50. EKG performed in the ED showed diffuse T wave inversions with junctional rhythm. Telemetry shows sinus bradycardia a (more content not included)... [facility] 07-09-2023 Note Hospital Medicine Daily Progress Note - 07/09/2023 11:10 AM; Room: [address] [place] [address] Admission: 07/06/2023 12:25 AM; Length of stay: 3 days THE HOSPITALIST TEAM PREFERS TO USE [employer] CHAT FOR COMMUNICATION 7AM-7PM. IF I DO NOT RESPOND WITHIN 15 MINUTES, PLEASE PAGE ME/CALL THROUGH THE TELECOMMUNICATOR. FROM 7PM-7AM, PLEASE PAGE [phone](COVR) Code Status: Full Code Barriers to Discharge: [...] LDL 95 07/06/2023 No results found for: [id number] , IRON , TIBC , C3 , [...] Planning TBD Signed Barrett Haider MD MS4 [facility] 07/09/2023 11: (more content not included)... [facility] 07-08-2023 Note ---- Attestation signed by [...] 07/08/23 0802 84/55 36.4 ???C (97.5 ???F) [facility] 67 21 98 % -- 07/08/23 [...] 86 QT Interval 466 QTC CALCULATION(BAZETT) 476 R-Wataga 34 T Wave [place] [address] & Marked T wave abnormality, consider anterolateral ischemia Prolonged QT Abnormal ECG When compared with ECG of 06-JUL-2023 14:34, T wave inversion less evident in Lateral Lab Results Component Value Date CKTOTAL 36.0 07/06/2023 TROPONINI 0.12 () 07/06/2023 Complete Echo (TTE) w/wo Imaging Agent, Strain, 3D, Bubble Study Result Date: 06/29/2023 1 1 [facility] Heart Station [address] [place] [address] [phone] (fax) Echocardiogram-[facility] Name: VIVIAN VANN Study Date: 06/29/2023 12:30 PM B/P: 135 mmHg/89 mmHg HR: Date of : 1960 Location: [facility] Height: 67 in. Age: 63 year(s) Patient [...] Valve: The mitr (more content not included)... [facility] 07-08-2023 Note Hospital Medicine Daily Progress Note - 07/08/2023 8:42 AM; Room: [address] [place] [address] Admission: 07/06/2023 12:25 AM; Length of stay: 2 days THE HOSPITALIST TEAM PREFERS TO USE [employer] FOR COMMUNICATION 7AM-7PM. IF I DO NOT RESPOND WITHIN 15 MINUTES, PLEASE PAGE ME/CALL THROUGH THE TELECOMMUNICATOR. FROM 7PM-7AM, PLEASE PAGE [phone](COVR) Code Status: Full Code Barriers to Discharge: [...] LDL 95 07/06/2023 No results found for: [id number] , IRON , TIBC , C3 , [...] Planning TBD Signed Barrett Haider MD MS4 [facility] 07/08/2023 8:42 AM [facility] 07-07-2023 Note ---- Attestation signed by [...] 84 QT Interval 434 QTC CALCULATION(BAZETT) 451 R-Wataga 23 T Wave [place] [address] & Marked [...] Bubble Study Result Date: 06/29/2023 1 1 [facility] Heart Station [address], [place] [phone] (fax) Echocardiogram-[facility] Name: VIVIAN VANN Study Date: 06/29/2023 12:30 PM B/P: 135 mmHg/89 mmHg HR: Date of : 1960 Location: [facility] Height: 67 in. Age: 63 year(s) Patient [...] abnormality. Right Ventricle: (more content not included)... [facility] 02-24-2024 Note Hospital Medicine Daily Progress Note - 07/07/2023 10:19 AM; Room: [address] [place] [address] Admission: 07/06/2023 12:25 AM; Length of stay: 1 days THE HOSPITALIST TEAM PREFERS TO USE [employer] CHAT FOR COMMUNICATION 7AM-7PM. IF I DO NOT RESPOND WITHIN 15 MINUTES, PLEASE PAGE ME/CALL THROUGH THE TELECOMMUNICATOR. FROM 7PM-7AM, PLEASE PAGE [phone](COVR) Code Status: Full Code Barriers to Discharge: [...] 4.6 3.7 CHLORIDE (more content not included)... [facility] 07-06-2023 Note communication receiv ed that Patient stating does not have transportation to return home at discharge At 07/02/2023 discharge, [facility] provided a one-time courtesy taxi cab transportation for Patient to return to her home (Patient's residence is 57 [address] from [facility] and cost for taxi cab was $146); [facility] is not able to provide another taxi cab. The following information was printed and provided to the Patient to make her own transportation arrangements for once she is medically cleared for discharge: [facility] hospital address is [address], [place] [address] [employer] Medicare to ask if non-emergency medical transportation is a covered benefit of the specific plan (https://www.7write/contact-us/[place] o/) Taxis in [place] (https://co.jonnie.wa.us/3086/Taxi) [employer] [phone]-GUQM ([phone]) [employer] [phone] [facility] 07-06-2023 Note 07/06/23 1625 Referral Data 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 Primary Caregiver Self Activities [...] need to arrange for her transportation needs; copywriter provided printed information to Pt for local [employer] companies for Pt to consider; [facility] unable to pay for another one-time courtesy [employer] for 57miles one-way trip) [facility] 07-06-2023 Note 1526 copywriter attempted to meet with Pt to discuss discharge planning (including Patient will need to arrange her transportation once she is medically cleared to discharge to home); Patient not in bed; unable to complete [id number] 1542 copywriter attempted to meet with Pt to discuss discharge planning (including Patient will need to arrange her transportation once she is medically cleared to discharge to home); Patient caring for toileting hygiene; unable to complete [id number] [facility] 07-06-2023 Note 07/06/23 1219 Admission Assessment [...] Yes Does the patient have a case manager specialist assigned to them through their insurance? No [...] to send link and activate MyChart? Yes [facility] 07-06-2023 Note ---- Attestation signed by [...] Progress Note - 07/06/2023 11:37 AM; Room: [address] [place] [address] Admission: 07/05/2023 11:50 PM; Length of stay: 1 days THE HOSPITALIST TEAM PREFERS TO USE [employer] CHAT FOR COMMUNICATION 7AM-7PM. IF I DO NOT RESPOND WITHIN 15 MINUTES, PLEASE PAGE ME/CALL THROUGH THE TELECOMMUNICATOR. FROM 7PM-7AM, PLEASE PAGE [phone](COVR) Code Status: Full Code Barriers to Discharge: Bradycardia Expected Discharge Date: TBD Discharge Destination: home Overview Vivain Vann is a 63 y.o. female with [...] -Continue home medi (more content not included)... [facility] 07-06-2023 Note . Hospital Medicine History and Physical 07/06/2023 1:19 AM THE HOSPITALIST TEAM PREFERS TO USE [employer] CHAT FOR COMMUNICATION 7AM-7PM. IF I DO NOT RESPOND WITHIN 15 MINUTES, PLEASE PAGE ME/CALL THROUGH THE TELECOMMUNICATOR. FROM 7PM-7AM, PLEASE PAGE [phone](COVR) Chief Complaint No chief complaint on file. History of Present Illness Vivian Vann is an 63 y.o. female who came from home with CP. This is a 63 years old female lady with a medical history of hypertension, tobacco smoking, A-fib, CHF. Came into the [facility] as a direct admit transfer from outside [...] Bradycardia 07/06/2023 NSTEMI (non-ST elevated myocardial infarction) ([facility]) 06/29/2023 Other forms of angina pectoris 06/29/2023 Hypomagnesemia 06/29/2023 Acute midline low back pain without sciatica 06/29/2023 Coronary arteriosclerosis 11/24/2021 Hyperlipidemia 11/24/2021 Type 2 diabetes mellitus ([facility] [place]) 11/24/2021 Acute non-ST segment elevation myocardial infarction ([facility]) 11/24/2021 Cigarette smoker 11/24/2021 Assessment and Plan [...] this hospital stay by a member of [facility] Medicine. Past Medical History No [...] (CARDIA) Difficulty of (more content not included)... [facility] 07-05-2023 Evaluation + Plan note Extrac [...] Reflex 07/05/23 * Drug Screen Urine 07/05/23 [facility]02-19-2024 NotePatient admitted to the hospital for: NSTEMI. Review of the last noted chart Echo from 06/29/2023 reports: EF 60%. Reported echo result does not qualify for Cardiac Rehab services per CMS eligibility criteria for CHF. 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 No Patient's goal for discharge home RucCC screened; Pt declining [facility], Consult resolved 1340 Communication received that Pt needing transportation to home since was transferred here from [facility], does not drive, lives alone, does not have friends or family who can transport ([phone]) PC to [employer]; from [address] [place] [address] [place] [address] will be $146 [employer] provided verbal estimate to telephone instrument supervisor, verbal approval from telephone instrument supervisor [phone] taxi cab transportation arranged; bedside RN notified Confirmation #: [id number] Passenger: VIVIAN VANN Phone Number: [phone] Pickup Date/Time: 07/02/2023 3:00 PM Pickup Address: [facility], [address] [place] [address], [facility] Drop Off Address: [address] [place] [address]. Ride Notes: please pickup at [facility]02-19-2024 Note07/02/23 1017 Admission Assessment Questions Verify [...] Yes Does the patient have a case manager specialist assigned to them through their insurance? No [...] able to send link and activate MyChart? [facility]02-19-2024 Note Attestation signed by Merritt Guerrero [...] QT Interval 476 QTC CALCULATION(BAZETT) 479 P Wat[place] 68 R-Wataga 25 T Wave [place] 128 Impression Normal sinus rhythm Right atrial [...] Bubble Study Result Date: 06/29/2023 1 1 [facility] Heart Station [address] [place] [address] [phone] (fax) Echocardiogram-[facility] Name: VIVIAN VANN Study Date: 06/29/2023 12:30 PM B/P: 135 mmHg/89 mmHg HR: Date of : 1960 Location: [facility] Height: 67 in. Age: 63 year(s) Patient [...] ventricular systolic function. Dop (more content not included)...[facility]02-18-2024 NoteHospital Medicine Daily Progress Note - 07/01/2023 12:00 PM; Room: [address] [place] [address] Admission: 06/29/2023 11:04 AM; Length of stay: 2 days THE HOSPITALIST TEAM PREFERS TO USE [employer] CHAT FOR COMMUNICATION 7AM-7PM. IF I DO NOT RESPOND WITHIN 15 MINUTES, PLEASE PAGE ME/CALL THROUGH THE TELECOMMUNICATOR. FROM 7PM-7AM, PLEASE PAGE [phone](COVR) Code Status: Full Code Barriers to Discharge: [...] LDL 114 11/02/2021 No results found for: [id number] , IRON , TIBC , C3 , C4 , WENDI , CANCA , ASO , PSA , CEA , CA125 , CA199 , AFP , CA153 Imaging ECG 12 lead Normal sinus rhythm Right atrial (more content not included)...[facility] 07-01-2023 Note Attestation signed by Merritt [...] QT Interval 476 QTC CALCULATION(BAZETT) 479 P [place] 68 R-Wat[place] 25 T Wave [place] 128 Impression Normal sinus rhythm Right atrial [...] Bubble Study Result Date: 06/29/2023 1 1 [facility] Heart Station [address] [place], [place] [phone] (fax) Echocardiogram-[facility] Name: VIVIAN VANN Study Date: 06/29/2023 12:30 PM B/P: 135 mmHg/89 mmHg HR: Date of : 1960 Location: [facility] Height: 67 in. Age: 63 year(s) Patient [...] Right Ventricle: The r (more content not included)...[facility]02-17-2024 Note Attestation signed by Merritt Guerrero [...] QT Interval 476 QTC CALCULATION(BAZETT) 479 P [place] 68 R-Wataga 25 T Wave [place] 128 Impression Normal sinus rhythm Right atrial [...] Bubble Study Result Date: 06/29/2023 1 1 [facility] Heart Station [address] [place] [address] [phone] (fax) Echocardiogram-[facility] Name: VIVIAN VANN Study Date: 06/29/2023 12:30 PM B/P: 135 mmHg/89 mmHg HR: Date of : 1960 Location: [facility] Height: 67 in. Age: 63 year(s) Patient [...] Mild Mild N (more content not included)... [facility]02-17-2024 NoteHospital Medicine Daily Progress Note - 06/30/2023 11:32 AM; Room: [address] [place] [address] Admission: 06/29/2023 11:04 AM; Length of stay: 1 days THE HOSPITALIST TEAM PREFERS TO USE [employer] CHAT FOR COMMUNICATION 7AM-7PM. IF I DO NOT RESPOND WITHIN 15 MINUTES, PLEASE PAGE ME/CALL THROUGH THE TELECOMMUNICATOR. FROM 7PM-7AM, PLEASE PAGE [phone](COVR) Code Status: Full Code Barriers to Discharge: [...] Principal Problem: NSTEMI (non-ST elevated myocardial infarction) ([facility]) Active Problems: Hyperlipidemia Type 2 diabetes [...] LDL 114 11/02/2021 No results found for: [id number] , IRON , TIBC , C3 , C4 , WENDI , CANCA , ASO , PSA , CEA , CA125 , CA199 , AFP , CA153 Imaging ECG 12 lead Normal sinus rhythm Right atrial enlargement ST & T wave abnormality, consider ante (more content not included)...[facility]02-16-2024 NotePatient: Vivian Vann Procedure Information Date/Time: 06/29/23 1655 Procedure: Coronary angiography Location: [facility] 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 Additional [facility]Un[facility] [facility] Note Hospital Medicine History and Physical 06/29/2023 12:51 PM THE HOSPITALIST TEAM PREFERS TO USE [employer] CHAT FOR COMMUNICATION 7AM-7PM. IF I DO NOT RESPOND WITHIN 15 MINUTES, PLEASE PAGE ME/CALL THROUGH THE TELECOMMUNICATOR. FROM 7PM-7AM, PLEASE PAGE [phone](COVR) Chief Complaint Direct admission from [facility] for NSTEMI requiring cardiac cath History of Present Illness Vivian Vann is an 63 y.o. female who came from [facility] as direct asmission for NSTEMI. Patient presented 06/28/23 to [facility] for c/o chest pain and lower back pain. Patient troponin level found to be 557 and EKG showed new ischemia and inverted T-waves, NSTEMI. She was given nitroglycerin and started on heparin drip. Patient is 1 year s/p stent placement at [facility] on plavix and aspirin. Dr. Chapa with cardiology agreed to patient transfer here to [facility] with hospital medicine admitting and cardiology consult [...] Low back pending. Laboratory workup here at [facility] shows CBC unremarkable w/ exception of NCHC [...] nursing note reviewed. Exam conducted with a mainframe architect present. Constitutional: General: She is not in [...] Date Noted NSTEMI (non-ST elevated myocardial infarction) ([facility]) 06/29/2023 Assessment and Plan Chest pain Low Back Pain NSTEMI -Troponin 557 at [facility], troponin now 0.07 - aPTT [...] Heparin drip with titratio (more content not included)...[facility]04-05-2023 NoteMicrobiology PROCEDURE: Blood Culture Charcoal [R1] [...] Locations R1: This [facility] performed at: [facility], [address] [place] [address], [address] [place] [address], [facility]wiler [facility] HospitalComment on above:Performed By: #### [id number] ####[address] [id number] NoteMicrobiology PROCEDURE: Blood Culture Charcoal [R1] SOURCE: Blood BODY SITE: Arm L COLLECTED DATE/TIME: 08/09/2022 14:09 EDT RECEIVED DATE/TIME: 08/09/2022 14:17 EDT START DATE/TIME: 08/09/2022 14:17 EDT FREE TEXT SOURCE: lt ac Nic PA-C, Clinton C Nic PA-C, Clinton C FINAL REPORTS Final Report [] Verified Date/Time: 08/16/2022 15:58 EDT No growth at 7 days. Performing Locations R1: This test was performed at: [facility], [address] [place] [address], [id number] [place] [address], [facility] HospitalComment on above:Performed By: #### [id number] ####[place] [id number] Hospital Discharge instructions Patient Education 08/09/2022 16:50:59 [...] Follow these instructions at home: Medicines Take zbbn-eim-qiuvcvk and prescription medicines (inhaled or pills) only [...] 02/07/2006 Document Revised: 04/12/2018 Document Reviewed: 06/04/2017 [email or web address] Patient Education 2020 [employer]. Follow Up Care 08/09/2022 13:09:28 With:Екатерина Jakob Address: [address] [place], [place] [id number] Business (1) When:08/12/2022 16:50:37 Comments:Call the office [...] you develop any new or worsening symptoms. [facility]03-29-2023 Evaluation + Plan noteExtracted from: Title:ED [...] day(s), # 14 tab(s), Refills(s) 0, Pharmacy: [facility], 170.2, cm, 08/09/22 13:13:00 EDT, Height/Length [...] day(s), # 15 tab(s), Refills(s) 0, Pharmacy: [facility], 170.2, cm, 08/09/22 13:13:00 EDT, Height/Length [...] Charcoal 08/09/22 * Blood Culture Charcoal 08/09/22 [facility]06-23-2022 NoteMR#: [id number] [facility] Pt. Name: Vivian Vann Admitted: 11/01/2021 Discharged: 11/03/2021 Date of : 1960 Physician: Tamie Fajardo MD DISCHARGE SUMMARY PRINCIPAL DIAGNOSIS: Rog-CN-ursynceeu myocardial infarction. SECONDARY DIAGNOSES: 1. Questionable small subsegmental PE in the right lower lobe, favored to be chronic per CT angio done outside facility. 2. Peptic ulcer disease. 3. Depression. 4. Chronic obstructive pulmonary disease. 5. THC use. 6. Nicotine use. HOSPITAL COURSE: Again, the patient was admitted to the hospital on 11/01/2021, with chest pain and she was found to have a epq-BO-opurfqrdv SD. The patient underwent cardiac catheterization and had [...] Fajardo MD Date Trans: 11/03/2021 01:10 P/laura [id number] cc: Gasper Avendano M.D. [facility] [address] Екатерина Robert M.D. [facility] [address] [facility] [place] [facility] [id number] [facility] Hospital[facility] course Narrative No data available for this section [facility] instructions No data available for this section [facility] Hospital[facility] note No data available for this section [facility] Summary Purpose Family History No Family [...] section and content) DATE CREATED AUTHOR 09/12/2018 [facility] DATE CREATED AUTHOR AUTHOR'S ORGANIZ ATION 01/06/2022 [facility] DATE CREATED AUTHOR AUTHOR'S ORGANIZ ATION 09/05/2022 [facility] DATE CREATED AUTHOR AUTHOR'S ORGANIZ ATION 07/13/2023 [facility] DATE CREATED AUTHOR AUTHOR'S ORGANIZ ATION 08/04/2023 [facility] DATE CREATED AUTHOR AUTHOR'S ORGANIZ ATION 09/11/2023 [facility] Patient Care team informatio n (unrecognized section and content) Personnel Name: Екатерина Robert MD Address: Address: [address] [place] [address] Personnel Name: Екатерина Robert MD Address: Address: [address] [place] [address] FOR RECORDS PERTAINING TO PATIENTS WHO ARE [...] BE BASED ON THE PRIMARY CLINICAL RECORDS. [facility]. provides no warranty or guarantee of the accuracy or completeness of information in this document.
[2024-05-05 06:09] LABS: Alanine Aminotransferase 14 U/L (14-59); Albumin Globulin Ratio 0.8; Albumin Level 2.6 g/dL (3.4-5.0); Alkaline Phosphatase 62 U/L (46-116); Anion Gap 12.1; Aspartate Amino Transferase 14 U/L (15-37); BUN Creatinine Ratio 15.2; Bilirubin Total 0.2 mg/dL (0.2-1.0); Calcium 9.3 mg/dL (8.5-10.1); Carbon Dioxide 27.3 mmol/L (21.0-32.0); Chloride 109 mmol/L (98-107); Estimated GFR (African America >60 (>=60 mL/min/1.73m^2); Estimated GFR (Non-African Ame 57 (>=60 mL/min/1.73m^2); Globulin 3.1 g/dL; Glucose 159 mg/dL (74-106); Potassium 4.4 mmol/L (3.5-5.1); Sodium 144 mmol/L (136-145); Total Protein 5.7 g/dL (6.4-8.2)
[2024-05-05 08:20] LABS: Glucometer 192 mg/dL (74-106)
--- NOTE | 2024-05-05 08:22 | P.PN_ITS ---
Progress Note: Subjective Subjective Interval history: Patient still with significant cough and shortness of breath, she had coughing throughout the evaluation today. Exam Constitutional Vital Signs, click to edit/add: Last Vital Signs Temp 97.8 F 05/05/24 04:00 Pulse 82 05/05/24 05:19 Resp 18 05/05/24 05:19 BP 111/73 05/05/24 04:00 Pulse Ox 95 05/05/24 05:19 O2 Del Method Nasal Cannula 05/05/24 05:19 O2 Flow Rate 3 05/05/24 05:19 Documenting provider has reviewed patient's vital signs: yes Common normals: apparent distress (Mild conversational dyspnea) Respiratory Common normals: no retractions and no use of accessory muscles; abnormal respiratory effort (Mild conversational dyspnea, persistent cough during eval) Auscultation: rhonchi; no wheezes Cardio Common normals: regular rate, regular rhythm and no murmurs GI Common normals: Normal to inspection, nondistended, normoactive bowel sounds present Extremity Common normals: no clubbing, cyanosis or edema Progress Note: Objective Labs Labs: Short CBC 05/05/24 Range/Units 05:15 WBC 12.4 H (4.0-11.0) 10^3/uL Hgb 11.2 L (12.0-16.0) g/dL Hct 36.7 (36.0-48.0) % Plt Count 228 (150-450) 10^3/uL BMP 05/05/24 05:15 Sodium 144 Potassium 4.4 Chloride 109 H Carbon Dioxide 27.3 BUN 15.0 Creatinine 0.99 Glucose 159 H Calcium 9.3 Liver Function 05/05/24 Range/Units 05:15 Total Bilirubin 0.2 (0.2-1.0) mg/dL AST 14 L (15-37) U/L ALT 14 (14-59) U/L Alkaline Phosphatase 62 (46-116) U/L Albumin 2.6 L (3.4-5.0) g/dL Progress Note: A&P Assessment and Plan (1) Acute hypoxemic respiratory failure: (2) Acute exacerbation of chronic obstructive pulmonary disease (COPD): (3) COVID-19: (4) Hypertension: Qualifiers: Hypertension type: primary hypertension Qualified Code(s): I10 - Essential (primary) hypertension (5) Elevated troponin: (6) HLD (hyperlipidemia): Qualifiers: Hyperlipidemia type: unspecified Qualified Code(s): E78.5 - Hyperlipidemia, unspecified (7) Coronary artery disease: Qualifiers: Associated angina: without angina Coronary Disease-Associated Artery/Lesion type: [place] artery [place] vs. transplanted heart: [place] heart Qualified Code(s): I25.10 - Atherosclerotic heart disease of [place] coronary artery without angina pectoris (8) Hypothyroid: Qualifiers: Hypothyroidism type: unspecified Qualified Code(s): E03.9 - Hypothyroidism, unspecified Plan Acute hypoxemic respiratory failure: due to COVID-19 and COPD exacerbation. Started patient on IV Solu-Medrol and inhaled DuoNebs. Wean off oxygen as tolerated. -Unable to wean off today, 90% on 2 L overnight, bumped up to 3 L, try to wean again today Acute exacerbation of chronic obstructive pulmonary disease (COPD): See above, now with left shift consistent with bacterial process COVID-19: See above -too late to start remdesivir Hypertension and history of chronic combined congestive heart failure: Continue with home medications-stable, BNP normal Elevated troponin: Likely related to COVID-19 HLD (hyperlipidemia): Continue with home medications Coronary artery disease: Does have dyspnea but that is related to the COVID-19, no chest pain Hypothyroid: Continue current medications Generalized anxiety disorder-continue with home medications Admission status: Patient initially placed in observation, failing at time., Persistent hypoxia, medically necessary treatment will span 2 midnights. Inpatient status ?
[2024-05-05] MEDS: CARVEDILOL 12.5 MG TABLET PO ×2 (08:50→21:42)
[2024-05-05] MEDS: CLOPIDOGREL BISULFATE 75 MG TABLET PO (08:50)
[2024-05-05] MEDS: ATORVASTATIN CALCIUM 40 MG TABLET 80 MG PO (08:50)
[2024-05-05] MEDS: ALPRAZOLAM 1 MG TABLET PO ×2 (08:50→21:42)
[2024-05-05] MEDS: CANAGLIFLOZIN 100 MG TABLET 300 MG PO (08:50)
[2024-05-05] MEDS: AZITHROMYCIN 250 MG TABLET 500 MG PO (08:50)
[2024-05-05] MEDS: ENOXAPARIN SODIUM 40 MG/0.4 ML SYRINGE SUBQ (08:51)
[2024-05-05] MEDS: ISOSORBIDE MONONITRATE 30 MG TAB.ER.24H PO (08:51)
[2024-05-05] MEDS: ASPIRIN 81 MG TABLET.DR PO (08:51)
[2024-05-05] MEDS: TRAMADOL HCL 50 MG TABLET PO (08:51)
[2024-05-05] MEDS: INSULIN ASPART 300 UNIT/3 ML PEN SUBQ ×4 (08:51→21:43)
[2024-05-05] MEDS: BUSPIRONE HCL 10 MG TABLET PO ×2 (08:51→21:42)
[2024-05-05] MEDS: OMEPRAZOLE 40 MG CAPSULE.DR PO (08:52)
--- NOTE | 2024-05-05 10:44 | SWNOTE1 ---
SW met with pt to discuss dc needs. Pt does live at her home still. Her son is living with her. She voiced he has been a big help. The issue is that neither of them have a car to drive. Her son does work and he walks to work. She stated she does not have much money to hold her over until the of the month. She plans on going to the [email or web address] on to get a meal. SW asked if she would like a list of food pantries in the area? She stated she has a list of food pantries and soup seth. SW asked if she finished applying for Medicaid. She stated she gets $23 from them per month. SW asked why she has not re-applied? She stated she knows how much she can make and if she makes $100 more then she can't even get that. SW did let pt know about trips for transportation, but it would cost around $3. She is aware of Trips, but at times can't afford to pay for it. SW recommended trying her insurance to see if they offer any transportation services. At this time pt is on oxygen, but does not wear it at home, plan is to wean her off. Pt voiced she is tired today and not feeling well. SW to check back on pt tomorrow.
--- NOTE | 2024-05-05 10:52 | SWNOTE1 ---
Important Message from Medicare reviewed and discussed with patient. Pt. verbalized understanding and signed the form. Original given to patient and copy placed in patient?s chart.
[2024-05-05 11:53] LABS: Glucometer 209 mg/dL (74-106)
[2024-05-05 16:01] LABS: Glucometer 207 mg/dL (74-106)
[2024-05-05 21:24] LABS: Glucometer 283 mg/dL (74-106)
[2024-05-05] MEDS: TRAZODONE HCL 50 MG TABLET 100 MG PO (21:42)
[2024-05-06] VITALS (18 sets, daily range): BP systolic 111–135; BP diastolic 71–89; PULSE 70–100; TEMP 36.5–36.9; O2SAT 88–96
[2024-05-06] MEDS: IPRATROPIUM/ALBUTEROL SULFATE 3 ML AMPUL.NEB IH ×3 (05:24→16:08)
[2024-05-06] MEDS: GABAPENTIN 300 MG CAPSULE PO ×2 (05:38→21:03)
[2024-05-06] MEDS: LEVOTHYROXINE SODIUM 75 MCG TABLET PO (05:38)
[2024-05-06] MEDS: TRAMADOL HCL 50 MG TABLET PO ×3 (05:45→21:03)
[2024-05-06 05:58] LABS: Basophils Percent Auto 0.1 % (0.2-2.0); Hematocrit 37.8 % (36.0-48.0); Hemoglobin 11.7 g/dL (12.0-16.0); Immature Granulocytes Abs Auto 0.19 10^3/uL (0.00-0.03); Immature Granulocytes Pct Auto 1.2 % (0.0-0.5); Lymphocytes Absolute Auto 1.4 10^3/uL (1.2-3.8); Lymphocytes Percent Auto 8.7 % (20.5-60.0); Mean Corpuscular Hemoglobin 27.3 pg (26.7-34.0); Mean Corpuscular Volume 88.1 fL (81.0-99.0); Mean Platelet Volume 10.9 fL (9.5-13.5); Monocytes Absolute Auto 0.5 10^3/uL (0.3-0.8); Monocytes Percent Auto 2.9 % (1.7-12.0); Neutrophils Absolute Auto 13.7 10^3/uL (1.4-6.5); Neutrophils Percent Auto 87.1 % (43.0-75.0); Platelet Count 255 10^3/uL (150-450); Red Blood Count 4.29 10^6/uL (4.20-5.40); Red Cell Distribution Width 15.3 % (11.0-15.0); White Blood Count 15.7 10^3/uL (4.0-11.0)
[2024-05-06 06:19] LABS: Alanine Aminotransferase 13 U/L (14-59); Albumin Globulin Ratio 0.8; Albumin Level 2.7 g/dL (3.4-5.0); Alkaline Phosphatase 73 U/L (46-116); Anion Gap 12.1; Aspartate Amino Transferase 9 U/L (15-37); BUN Creatinine Ratio 17.1; Bilirubin Total 0.2 mg/dL (0.2-1.0); Calcium 9.6 mg/dL (8.5-10.1); Carbon Dioxide 29.1 mmol/L (21.0-32.0); Chloride 107 mmol/L (98-107); Estimated GFR (African America >60 (>=60 mL/min/1.73m^2); Estimated GFR (Non-African Ame 53 (>=60 mL/min/1.73m^2); Globulin 3.3 g/dL; Glucose 176 mg/dL (74-106); Potassium 4.2 mmol/L (3.5-5.1); Sodium 144 mmol/L (136-145)
--- NOTE | 2024-05-06 07:50 | P.PN_ITS ---
Progress Note: Subjective Subjective Interval history: Patient still with significant dyspnea. Conversational dyspnea appears improved but still dyspnea with activity, cough throughout the evaluation Exam Constitutional Vital Signs, click to edit/add: Last Vital Signs Temp 97.7 F 05/06/24 03:40 Pulse 80 05/06/24 06:00 Resp 16 05/06/24 05:24 BP 133/89 05/06/24 03:40 Pulse Ox 91 L 05/06/24 06:00 O2 Del Method Nasal Cannula 05/06/24 05:52 O2 Flow Rate 1 05/06/24 05:52 Documenting provider has reviewed patient's vital signs: yes Common normals: apparent distress (Mild conversational dyspnea) Respiratory Common normals: no retractions and no use of accessory muscles; abnormal respiratory effort (Mild conversational dyspnea, persistent cough during eval) Auscultation: rhonchi and wheezes (Wheeze this morning) Cardio Common normals: regular rate, regular rhythm and no murmurs GI Common normals: Normal to inspection, nondistended, normoactive bowel sounds present Extremity Common normals: no clubbing, cyanosis or edema Progress Note: Objective Labs Labs: Short CBC 05/06/24 Range/Units 05:40 WBC 15.7 H (4.0-11.0) 10^3/uL Hgb 11.7 L (12.0-16.0) g/dL Hct 37.8 (36.0-48.0) % Plt Count 255 (150-450) 10^3/uL BMP 05/06/24 05:40 Sodium 144 Potassium 4.2 Chloride 107 Carbon Dioxide 29.1 BUN 18.0 Creatinine 1.05 H Glucose 176 H Calcium 9.6 Liver Function 05/06/24 Range/Units 05:40 Total Bilirubin 0.2 (0.2-1.0) mg/dL AST 9 L (15-37) U/L ALT 13 L (14-59) U/L Alkaline Phosphatase 73 (46-116) U/L Albumin 2.7 L (3.4-5.0) g/dL Progress Note: A&P Assessment and Plan (1) Acute hypoxemic respiratory failure: (2) Acute exacerbation of chronic obstructive pulmonary disease (COPD): (3) COVID-19: (4) Hypertension: Qualifiers: Hypertension type: primary hypertension Qualified Code(s): I10 - Essential (primary) hypertension (5) Elevated troponin: (6) HLD (hyperlipidemia): Qualifiers: Hyperlipidemia type: unspecified Qualified Code(s): E78.5 - Hyperlipidemia, unspecified (7) Coronary artery disease: Qualifiers: Coronary Disease-Associated Artery/Lesion type: [place] artery [place] vs. transplanted heart: [place] heart Associated angina: without angina Qualified Code(s): I25.10 - Atherosclerotic heart disease of [place] coronary artery without angina pectoris (8) Hypothyroid: Qualifiers: Hypothyroidism type: unspecified Qualified Code(s): E03.9 - Hypothyroidism, unspecified Plan Acute hypoxemic respiratory failure: due to COVID-19 and COPD exacerbation. Started patient on IV Solu-Medrol and inhaled DuoNebs. Wean off oxygen as tolerated. -Unable to wean off today, 90% on 2 L overnight, bumped up to 3 L, try to wean again today Acute exacerbation of chronic obstructive pulmonary disease (COPD): See above, now with left shift consistent with bacterial process -wheezing worse this morning, at the alpha-1 COVID-19: See above -too late to start remdesivir Hypertension and history of chronic combined congestive heart failure: Continue with home medications-stable, BNP normal Elevated troponin: Likely related to COVID-19 HLD (hyperlipidemia): Continue with home medications Coronary artery disease: Does have dyspnea but that is related to the COVID-19, no chest pain Hypothyroid: Continue current medications Generalized anxiety disorder-continue with home medications Admission status: Patient initially placed in observation, failing at time., Persistent hypoxia, medically necessary treatment will span 2 midnights. Inpatient status ?
[2024-05-06 08:07] LABS: Glucometer 156 mg/dL (74-106)
[2024-05-06] MEDS: ENOXAPARIN SODIUM 40 MG/0.4 ML SYRINGE SUBQ (08:46)
[2024-05-06] MEDS: ATORVASTATIN CALCIUM 40 MG TABLET 80 MG PO (08:46)
[2024-05-06] MEDS: CANAGLIFLOZIN 100 MG TABLET 300 MG PO (08:46)
[2024-05-06] MEDS: THEOPHYLLINE 300 MG TAB.ER.12H PO ×2 (08:46→20:54)
[2024-05-06] MEDS: INSULIN ASPART 300 UNIT/3 ML PEN SUBQ ×4 (08:46→22:00)
[2024-05-06] MEDS: AZITHROMYCIN 250 MG TABLET 500 MG PO (08:46)
[2024-05-06] MEDS: BUSPIRONE HCL 10 MG TABLET PO ×2 (08:47→20:55)
[2024-05-06] MEDS: ALPRAZOLAM 1 MG TABLET PO ×2 (08:47→20:54)
[2024-05-06] MEDS: ASPIRIN 81 MG TABLET.DR PO (08:47)
[2024-05-06] MEDS: CLOPIDOGREL BISULFATE 75 MG TABLET PO (08:47)
[2024-05-06] MEDS: OMEPRAZOLE 40 MG CAPSULE.DR PO (08:47)
[2024-05-06] MEDS: ISOSORBIDE MONONITRATE 30 MG TAB.ER.24H PO (08:47)
[2024-05-06] MEDS: CARVEDILOL 12.5 MG TABLET PO ×2 (08:47→20:54)
[2024-05-06] MEDS: METHYLPREDNISOLONE SOD SUCC PF 40 MG/ML VIAL IVP ×2 (08:50→15:55)
[2024-05-06 11:12] LABS: Glucometer 219 mg/dL (74-106)
[2024-05-06] MEDS: ONDANSETRON PF 4 MG/2 ML VIAL IV (15:27)
[2024-05-06] MEDS: CYCLOBENZAPRINE HCL 10 MG TABLET PO ×2 (15:27→20:54)
[2024-05-06 15:53] LABS: Glucometer 213 mg/dL (74-106)
[2024-05-06 20:51] LABS: Glucometer 185 mg/dL (74-106)
[2024-05-06] MEDS: TRAZODONE HCL 50 MG TABLET 100 MG PO (21:03)
[2024-05-07] VITALS (25 sets, daily range): BP systolic 106–145; BP diastolic 66–91; PULSE 72–94; TEMP 36.4–37.2; O2SAT 87–97
[2024-05-07] MEDS: METHYLPREDNISOLONE SOD SUCC PF 40 MG/ML VIAL IVP ×4 (00:52→23:55)
[2024-05-07] MEDS: IPRATROPIUM/ALBUTEROL SULFATE 3 ML AMPUL.NEB IH ×4 (05:06→22:02)
[2024-05-07] MEDS: LEVOTHYROXINE SODIUM 75 MCG TABLET PO (05:59)
[2024-05-07] MEDS: GABAPENTIN 300 MG CAPSULE PO ×3 (05:59→20:01)
[2024-05-07 06:22] LABS: Basophils Percent Auto 0.1 % (0.2-2.0); Hematocrit 38.7 % (36.0-48.0); Hemoglobin 12.3 g/dL (12.0-16.0); Immature Granulocytes Abs Auto 0.16 10^3/uL (0.00-0.03); Immature Granulocytes Pct Auto 1.1 % (0.0-0.5); Lymphocytes Absolute Auto 1.4 10^3/uL (1.2-3.8); Lymphocytes Percent Auto 9.8 % (20.5-60.0); Mean Corpuscular HGB Conc 31.8 g/dL (29.9-35.2); Mean Corpuscular Hemoglobin 27.4 pg (26.7-34.0); Mean Corpuscular Volume 86.2 fL (81.0-99.0); Mean Platelet Volume 10.8 fL (9.5-13.5); Monocytes Absolute Auto 0.4 10^3/uL (0.3-0.8); Monocytes Percent Auto 2.8 % (1.7-12.0); Neutrophils Absolute Auto 12.5 10^3/uL (1.4-6.5); Neutrophils Percent Auto 86.2 % (43.0-75.0); Platelet Count 282 10^3/uL (150-450); Red Blood Count 4.49 10^6/uL (4.20-5.40); Red Cell Distribution Width 14.9 % (11.0-15.0); White Blood Count 14.5 10^3/uL (4.0-11.0)
[2024-05-07 06:32] LABS: Theophylline 15.9 ug/mL (10.0-20.0)
[2024-05-07 06:40] LABS: Alanine Aminotransferase 18 U/L (14-59); Albumin Globulin Ratio 0.9; Albumin Level 2.9 g/dL (3.4-5.0); Alkaline Phosphatase 82 U/L (46-116); Anion Gap 13.1; Aspartate Amino Transferase 13 U/L (15-37); BUN Creatinine Ratio 25.3; Bilirubin Total 0.2 mg/dL (0.2-1.0); Calcium 9.3 mg/dL (8.5-10.1); Carbon Dioxide 30.1 mmol/L (21.0-32.0); Chloride 103 mmol/L (98-107); Estimated GFR (African America >60 (>=60 mL/min/1.73m^2); Estimated GFR (Non-African Ame 57 (>=60 mL/min/1.73m^2); Globulin 3.3 g/dL; Glucose 179 mg/dL (74-106); Potassium 4.2 mmol/L (3.5-5.1); Sodium 142 mmol/L (136-145); Total Protein 6.2 g/dL (6.4-8.2)
[2024-05-07] MEDS: OXYCODONE HCL 5 MG TABLET PO (06:52)
--- NOTE | 2024-05-07 07:20 | XR_ITS ---
The [address] [address] Patient Name: EMERY JETT MRN: [id number] date: 1960 Sex: F Assigned Patient Location: MS Current Patient Location: Accession/Order Number: [id number] Exam Date: 05/07/2024 08:00 Report Date: 05/07/2024 10:39 At the request of: ЕКАТЕРИНА ROBERT Procedure: XR acute abdomen series EXAM: XR acute abdomen series HISTORY: abd pain COMPARISON: Chest x-ray 05/04/2024 TECHNIQUE: 4 images. FINDINGS: Again, pacemaker. No failure pattern. No left pleural effusion. Today, slight increased markings at the right base peripherally and there is small right inferolateral lamellar pleural fluid. No evidence of pneumoperitoneum. Air is identified within nondilated large bowel much greater than several a few loops of nondilated small bowel. Patchy stool within the colon. This is moderate on the right and is modest amount in the sigmoid region. XR/XR acute abdomen series IMPRESSION: 1. No free air. No GI obstruction. 2. Interval short segment mild increased markings at the right base and a fairly small amount of right pleural fluid/thickening Electronically authenticated by: NARINDER MUÑOZ Date: 05/07/2024 10:39
--- NOTE | 2024-05-07 07:25 | P.PN_ITS ---
Progress Note: Subjective Subjective Interval history: Difficult night, breathing worse after throwing up, hypoxia returned as well. Exam Constitutional Vital Signs, click to edit/add: Last Vital Signs Temp 97.7 F 05/07/24 04:00 Pulse 83 05/07/24 06:02 Resp 16 05/07/24 05:06 BP 145/91 H 05/07/24 00:00 Pulse Ox 91 L 05/07/24 06:03 O2 Del Method Nasal Cannula 05/07/24 06:03 O2 Flow Rate 2 05/07/24 06:03 Documenting provider has reviewed patient's vital signs: yes Common normals: apparent distress (Mild conversational dyspnea) Respiratory Common normals: no retractions and no use of accessory muscles; abnormal respiratory effort (Mild conversational dyspnea worse) Auscultation: rhonchi and wheezes (Wheezing more audible this morning.) Cardio Common normals: regular rate, regular rhythm and no murmurs GI Common normals: Normal to inspection, nondistended, normoactive bowel sounds present Extremity Common normals: no clubbing, cyanosis or edema Progress Note: Objective Labs Labs: Short CBC 05/07/24 Range/Units 06:02 WBC 14.5 H (4.0-11.0) 10^3/uL Hgb 12.3 (12.0-16.0) g/dL Hct 38.7 (36.0-48.0) % Plt Count 282 (150-450) 10^3/uL BMP 05/07/24 06:02 Sodium 142 Potassium 4.2 Chloride 103 Carbon Dioxide 30.1 BUN 25.0 H Creatinine 0.99 Glucose 179 H Calcium 9.3 Liver Function 05/07/24 Range/Units 06:02 Total Bilirubin 0.2 (0.2-1.0) mg/dL AST 13 L (15-37) U/L ALT 18 (14-59) U/L Alkaline Phosphatase 82 (46-116) U/L Albumin 2.9 L (3.4-5.0) g/dL Progress Note: A&P Assessment and Plan (1) Acute hypoxemic respiratory failure: (2) Acute exacerbation of chronic obstructive pulmonary disease (COPD): (3) COVID-19: (4) Hypertension: Qualifiers: Hypertension type: primary hypertension Qualified Code(s): I10 - Essential (primary) hypertension (5) Elevated troponin: (6) HLD (hyperlipidemia): Qualifiers: Hyperlipidemia type: unspecified Qualified Code(s): E78.5 - Hyperlipidemia, unspecified (7) Coronary artery disease: Qualifiers: Coronary Disease-Associated Artery/Lesion type: [place] artery [place] vs. transplanted heart: [place] heart Associated angina: without angina Qualified Code(s): I25.10 - Atherosclerotic heart disease of [place] coronary artery without angina pectoris (8) Hypothyroid: Qualifiers: Hypothyroidism type: unspecified Qualified Code(s): E03.9 - Hypothyroidism, unspecified Plan Acute hypoxemic respiratory failure: due to COVID-19 and COPD exacerbation. Started patient on IV Solu-Medrol and inhaled DuoNebs. Wean off oxygen as tolerated. -Unable to wean off today, 90% on 2 L overnight, bumped up to 3 L, try to wean again today Acute exacerbation of chronic obstructive pulmonary disease (COPD): See above, now with left shift consistent with bacterial process -wheezing worse this morning. Was not hypoxic in the upper yesterday but hypoxia returned last night 88%. Checking chest x-ray, change antibiotics, concern for aspiration COVID-19: See above -too late to start remdesivir Hypertension and history of chronic combined congestive heart failure: Continue with home medications-stable, BNP normal Elevated troponin: Likely related to COVID-19 HLD (hyperlipidemia): Continue with home medications Coronary artery disease: Does have dyspnea but that is related to the COVID-19, no chest pain, check BNP in a.m. Hypothyroid: Continue current medications Abdominal pain with emesis and diarrhea-check acute abdominal series, stool studies. Change Levsin to [id number] Generalized anxiety disorder-continue with home medications Admission status: Patient initially placed in observation, failing at time., Persistent hypoxia, medically necessary treatment will span 2 midnights. Inpatient status, with changes in medication now changing to Zosyn with possible aspiration pneumonia, maintain inpatient status ?
[2024-05-07 07:35] LABS: Glucometer 166 mg/dL (74-106)
[2024-05-07] MEDS: INSULIN ASPART 300 UNIT/3 ML PEN SUBQ ×4 (09:02→20:02)
[2024-05-07] MEDS: CANAGLIFLOZIN 100 MG TABLET 300 MG PO (09:04)
[2024-05-07] MEDS: ASPIRIN 81 MG TABLET.DR PO (09:04)
[2024-05-07] MEDS: ENOXAPARIN SODIUM 40 MG/0.4 ML SYRINGE SUBQ (09:04)
[2024-05-07] MEDS: ATORVASTATIN CALCIUM 40 MG TABLET 80 MG PO (09:04)
[2024-05-07] MEDS: CARVEDILOL 12.5 MG TABLET PO ×2 (09:05→20:01)
[2024-05-07] MEDS: BUSPIRONE HCL 10 MG TABLET PO ×2 (09:05→20:01)
[2024-05-07] MEDS: ALPRAZOLAM 1 MG TABLET PO ×3 (09:05→23:55)
[2024-05-07] MEDS: OMEPRAZOLE 40 MG CAPSULE.DR PO (09:05)
[2024-05-07] MEDS: THEOPHYLLINE 300 MG TAB.ER.12H PO ×2 (09:05→20:00)
[2024-05-07] MEDS: CLOPIDOGREL BISULFATE 75 MG TABLET PO (09:05)
[2024-05-07] MEDS: ISOSORBIDE MONONITRATE 30 MG TAB.ER.24H PO (09:05)
[2024-05-07] MEDS: PIPERACILLIN SODIUM/TAZOBACTAM 3.375 GM in 0.9 % SODIUM CHLORIDE 50 ML IV ×3 (09:07→23:55)
[2024-05-07 11:12] LABS: Glucometer 167 mg/dL (74-106)
[2024-05-07] MEDS: HYOSCYAMINE SULFATE 0.125 MG TAB.SUBL SL ×3 (11:32→20:01)
[2024-05-07 16:26] LABS: Glucometer 179 mg/dL (74-106)
[2024-05-07 19:50] LABS: Glucometer 462 mg/dL (74-106)
[2024-05-07] MEDS: TRAMADOL HCL 50 MG TABLET PO (20:00)
[2024-05-07] MEDS: ACETAMINOPHEN 325 MG TABLET 650 MG PO (20:01)
[2024-05-07] MEDS: CYCLOBENZAPRINE HCL 10 MG TABLET PO (20:01)
[2024-05-07] MEDS: TRAZODONE HCL 50 MG TABLET 100 MG PO (20:01)
[2024-05-08] VITALS (8 sets, daily range): BP systolic 101–155; BP diastolic 69–99; PULSE 81–96; TEMP 36.6–37.1; O2SAT 90–94
[2024-05-08] MEDS: IPRATROPIUM/ALBUTEROL SULFATE 3 ML AMPUL.NEB IH ×4 (05:02→22:50)
[2024-05-08] MEDS: LEVOTHYROXINE SODIUM 75 MCG TABLET PO (05:21)
[2024-05-08] MEDS: GABAPENTIN 300 MG CAPSULE PO ×3 (05:21→21:06)
[2024-05-08] MEDS: HYOSCYAMINE SULFATE 0.125 MG TAB.SUBL SL ×4 (05:21→21:06)
[2024-05-08] MEDS: TRAMADOL HCL 50 MG TABLET PO (05:21)
[2024-05-08 06:40] LABS: Hematocrit 36.4 % (36.0-48.0); Hemoglobin 11.6 g/dL (12.0-16.0); Immature Granulocytes Abs Auto 0.18 10^3/uL (0.00-0.03); Immature Granulocytes Pct Auto 1.7 % (0.0-0.5); Lymphocytes Absolute Auto 1.2 10^3/uL (1.2-3.8); Lymphocytes Percent Auto 11.2 % (20.5-60.0); Mean Corpuscular HGB Conc 31.9 g/dL (29.9-35.2); Mean Corpuscular Volume 84.7 fL (81.0-99.0); Mean Platelet Volume 10.7 fL (9.5-13.5); Monocytes Absolute Auto 0.4 10^3/uL (0.3-0.8); Neutrophils Absolute Auto 8.9 10^3/uL (1.4-6.5); Neutrophils Percent Auto 83.1 % (43.0-75.0); Platelet Count 265 10^3/uL (150-450); Red Cell Distribution Width 14.6 % (11.0-15.0); White Blood Count 10.7 10^3/uL (4.0-11.0)
[2024-05-08 06:58] LABS: Theophylline 17.1 ug/mL (10.0-20.0)
[2024-05-08 07:07] LABS: Alanine Aminotransferase 18 U/L (14-59); Albumin Globulin Ratio 0.8; Albumin Level 2.6 g/dL (3.4-5.0); Alkaline Phosphatase 75 U/L (46-116); Anion Gap 13.2; Aspartate Amino Transferase 15 U/L (15-37); Bilirubin Total 0.3 mg/dL (0.2-1.0); Calcium 8.9 mg/dL (8.5-10.1); Carbon Dioxide 27.9 mmol/L (21.0-32.0); Chloride 103 mmol/L (98-107); Estimated GFR (African America >60 (>=60 mL/min/1.73m^2); Estimated GFR (Non-African Ame 56 (>=60 mL/min/1.73m^2); Globulin 3.3 g/dL; Glucose 160 mg/dL (74-106); Potassium 4.1 mmol/L (3.5-5.1); Sodium 140 mmol/L (136-145); Total Protein 5.9 g/dL (6.4-8.2)
[2024-05-08] MEDS: GUAIFENESIN 200 MG/DEXTROMETHORPHAN 20 MG 10 ML UNIT DOSE CUP PO ×3 (08:26→23:03)
[2024-05-08] MEDS: CLOPIDOGREL BISULFATE 75 MG TABLET PO (08:26)
[2024-05-08] MEDS: METHYLPREDNISOLONE SOD SUCC PF 40 MG/ML VIAL IVP ×2 (08:26→21:06)
[2024-05-08] MEDS: OMEPRAZOLE 40 MG CAPSULE.DR PO (08:26)
[2024-05-08] MEDS: ONDANSETRON PF 4 MG/2 ML VIAL IV (08:26)
[2024-05-08] MEDS: OXYCODONE HCL 5 MG TABLET PO ×3 (08:26→23:03)
[2024-05-08] MEDS: ENOXAPARIN SODIUM 40 MG/0.4 ML SYRINGE SUBQ (08:26)
[2024-05-08] MEDS: CYCLOBENZAPRINE HCL 10 MG TABLET PO (08:26)
[2024-05-08] MEDS: CARVEDILOL 12.5 MG TABLET PO ×2 (08:27→21:06)
[2024-05-08] MEDS: ATORVASTATIN CALCIUM 40 MG TABLET 80 MG PO (08:27)
[2024-05-08] MEDS: ISOSORBIDE MONONITRATE 30 MG TAB.ER.24H PO (08:27)
[2024-05-08] MEDS: ALPRAZOLAM 1 MG TABLET PO ×3 (08:27→23:03)
[2024-05-08] MEDS: CANAGLIFLOZIN 100 MG TABLET 300 MG PO (08:27)
[2024-05-08] MEDS: BUSPIRONE HCL 10 MG TABLET PO ×2 (08:27→21:06)
[2024-05-08] MEDS: ASPIRIN 81 MG TABLET.DR PO (08:27)
[2024-05-08] MEDS: THEOPHYLLINE 300 MG TAB.ER.12H PO ×2 (08:27→21:06)
[2024-05-08] MEDS: INSULIN ASPART 300 UNIT/3 ML PEN SUBQ ×4 (08:35→21:14)
--- NOTE | 2024-05-08 08:40 | P.PN_ITS ---
Progress Note: Subjective Subjective Interval history: Breathing finally getting better, off of supplemental oxygen, more nausea vomiting this morning Exam Constitutional Vital Signs, click to edit/add: Last Vital Signs Temp 98.7 F 05/08/24 05:07 Pulse 86 05/08/24 05:07 Resp 18 05/08/24 05:07 BP 155/99 H 05/08/24 05:07 Pulse Ox 90 L 05/08/24 05:07 O2 Del Method Room Air 05/08/24 05:07 O2 Flow Rate 0.5 05/07/24 18:07 Documenting provider has reviewed patient's vital signs: yes Common normals: apparent distress (Mild conversational dyspnea) Respiratory Common normals: normal respiratory effort, no retractions and no use of accessory muscles Auscultation: vesicular breath sounds; no rhonchi and no wheezes (Wheezing more audible this morning.) Cardio Common normals: regular rate, regular rhythm and no murmurs GI Common normals: Normal to inspection, nondistended, normoactive bowel sounds present Extremity Common normals: no clubbing, cyanosis or edema Progress Note: Objective Labs Labs: Short CBC 05/08/24 Range/Units 06:13 WBC 10.7 (4.0-11.0) 10^3/uL Hgb 11.6 L (12.0-16.0) g/dL Hct 36.4 (36.0-48.0) % Plt Count 265 (150-450) 10^3/uL BMP 05/08/24 06:13 Sodium 140 Potassium 4.1 Chloride 103 Carbon Dioxide 27.9 BUN 33.0 H Creatinine 1.00 Glucose 160 H Calcium 8.9 Liver Function 05/08/24 Range/Units 06:13 Total Bilirubin 0.3 (0.2-1.0) mg/dL AST 15 (15-37) U/L ALT 18 (14-59) U/L Alkaline Phosphatase 75 (46-116) U/L Albumin 2.6 L (3.4-5.0) g/dL Progress Note: A&P Assessment and Plan (1) Acute hypoxemic respiratory failure: (2) Acute exacerbation of chronic obstructive pulmonary disease (COPD): (3) COVID-19: (4) Hypertension: Qualifiers: Hypertension type: primary hypertension Qualified Code(s): I10 - Essential (primary) hypertension (5) Elevated troponin: (6) HLD (hyperlipidemia): Qualifiers: Hyperlipidemia type: unspecified Qualified Code(s): E78.5 - Hyperlipidemia, unspecified (7) Coronary artery disease: Qualifiers: Associated angina: without angina Coronary Disease-Associated Artery/Lesion type: [place] artery [place] vs. transplanted heart: [place] heart Qualified Code(s): I25.10 - Atherosclerotic heart disease of [place] coronary artery without angina pectoris (8) Hypothyroid: Qualifiers: Hypothyroidism type: unspecified Qualified Code(s): E03.9 - Hypothyroidism, unspecified Plan Acute hypoxemic respiratory failure: due to COVID-19 and COPD exacerbation. Started patient on IV Solu-Medrol and inhaled DuoNebs. Able to be weaned off of supplemental oxygen overnight Acute exacerbation of chronic obstructive pulmonary disease (COPD): See above, now with left shift consistent with bacterial process -Whit blood cell count normalk COVID-19: See above -too late to start remdesivir Hypertension and history of chronic combined congestive heart failure: Continue with home medications-stable, BNP normal Elevated troponin: Likely related to COVID-19 HLD (hyperlipidemia): Continue with home medications Coronary artery disease: Does have dyspnea but that is related to the COVID-19, no chest pain, check BNP in a.m. Hypothyroid: Continue current medications Abdominal pain with emesis and diarrhea-Stool studies pending, acute abdominal series from yesterday unremarkable, will adjust steroids as that may be inciting agents, otherwise continue with current medications Generalized anxiety disorder-continue with home medications Admission status: Patient initially placed in observation, failing at time., Persistent hypoxia, medically necessary treatment will span 2 midnights. Inpatient status, with changes in medication now changing to Zosyn with possible aspiration pneumonia, maintain inpatient status ?
[2024-05-08 08:53] LABS: Amylase 79 U/L (25-115)
--- NOTE | 2024-05-08 09:35 | SWNOTE1 ---
2nd notice of important message from Medicare reviewed with patient. No questions at this time.
[2024-05-08] MEDS: 0.9 % SODIUM CHLORIDE 250 ML 10 ML IV (09:37)
[2024-05-08] MEDS: PIPERACILLIN SODIUM/TAZOBACTAM 3.375 GM in 0.9 % SODIUM CHLORIDE 50 ML IV ×2 (09:37→17:28)
--- NOTE | 2024-05-08 11:32 | SWNOTE1 ---
SW stopped in to see patient and pt voiced she is not feeling too well. She is on room air at this time, but voiced she is just nauseous. She stated when she had covid last time, she was at hospital for awhile. Pt stated her friends did come see her yesterday so that was nice. Pt voiced no needs at discharge at this time.
[2024-05-08 12:06] LABS: Glucometer 180 mg/dL (74-106)
[2024-05-08 16:39] LABS: Glucometer 168 mg/dL (74-106)
[2024-05-08] MEDS: TRAZODONE HCL 50 MG TABLET 100 MG PO (21:06)
[2024-05-08 21:13] LABS: Glucometer 206 mg/dL (74-106)
[2024-05-09] MEDS: PIPERACILLIN SODIUM/TAZOBACTAM 3.375 GM in 0.9 % SODIUM CHLORIDE 50 ML IV ×2 (01:16→08:03)
[2024-05-09] MEDS: TRAMADOL HCL 50 MG TABLET PO (05:10)
[2024-05-09] MEDS: HYOSCYAMINE SULFATE 0.125 MG TAB.SUBL SL (05:10)
[2024-05-09] MEDS: GUAIFENESIN 200 MG/DEXTROMETHORPHAN 20 MG 10 ML UNIT DOSE CUP PO (05:10)
[2024-05-09] MEDS: GABAPENTIN 300 MG CAPSULE PO (05:11)
[2024-05-09 05:16] VITALS: BP 123/71; PULSE 85; TEMP 36.6; O2SAT 90
[2024-05-09 05:18] VITALS: PULSE 89; O2SAT 92
[2024-05-09] MEDS: IPRATROPIUM/ALBUTEROL SULFATE 3 ML AMPUL.NEB IH ×2 (05:18→10:40)
[2024-05-09] MEDS: LEVOTHYROXINE SODIUM 75 MCG TABLET PO (05:31)
[2024-05-09 06:15] LABS: Basophils Percent Auto 0.1 % (0.2-2.0); Hematocrit 37.1 % (36.0-48.0); Immature Granulocytes Abs Auto 0.17 10^3/uL (0.00-0.03); Immature Granulocytes Pct Auto 1.8 % (0.0-0.5); Lymphocytes Absolute Auto 1.1 10^3/uL (1.2-3.8); Mean Corpuscular HGB Conc 32.3 g/dL (29.9-35.2); Mean Corpuscular Hemoglobin 27.5 pg (26.7-34.0); Mean Corpuscular Volume 84.9 fL (81.0-99.0); Mean Platelet Volume 10.5 fL (9.5-13.5); Monocytes Absolute Auto 0.5 10^3/uL (0.3-0.8); Monocytes Percent Auto 5.1 % (1.7-12.0); Neutrophils Absolute Auto 7.6 10^3/uL (1.4-6.5); Platelet Count 270 10^3/uL (150-450); Red Blood Count 4.37 10^6/uL (4.20-5.40); Red Cell Distribution Width 14.5 % (11.0-15.0); White Blood Count 9.4 10^3/uL (4.0-11.0)
[2024-05-09 06:35] LABS: Theophylline 19.4 ug/mL (10.0-20.0)
[2024-05-09 06:39] LABS: Alanine Aminotransferase 20 U/L (14-59); Albumin Globulin Ratio 0.8; Albumin Level 2.7 g/dL (3.4-5.0); Alkaline Phosphatase 72 U/L (46-116); Anion Gap 10.7; Aspartate Amino Transferase 12 U/L (15-37); BUN Creatinine Ratio 32.1; Bilirubin Total 0.4 mg/dL (0.2-1.0); Calcium 8.9 mg/dL (8.5-10.1); Carbon Dioxide 30.7 mmol/L (21.0-32.0); Chloride 103 mmol/L (98-107); Estimated GFR (African America >60 (>=60 mL/min/1.73m^2); Estimated GFR (Non-African Ame 53 (>=60 mL/min/1.73m^2); Globulin 3.3 g/dL; Glucose 186 mg/dL (74-106); Potassium 4.4 mmol/L (3.5-5.1); Sodium 140 mmol/L (136-145)
[2024-05-09 07:30] VITALS: BP 132/82; PULSE 86; TEMP 36.7; O2SAT 93
[2024-05-09] MEDS: INSULIN ASPART 300 UNIT/3 ML PEN SUBQ (07:49)
[2024-05-09] MEDS: ENOXAPARIN SODIUM 40 MG/0.4 ML SYRINGE SUBQ (08:03)
[2024-05-09] MEDS: CANAGLIFLOZIN 100 MG TABLET 300 MG PO (08:04)
[2024-05-09] MEDS: CARVEDILOL 12.5 MG TABLET PO (08:04)
[2024-05-09] MEDS: OMEPRAZOLE 40 MG CAPSULE.DR PO (08:04)
[2024-05-09] MEDS: BUSPIRONE HCL 10 MG TABLET PO (08:04)
[2024-05-09] MEDS: ASPIRIN 81 MG TABLET.DR PO (08:04)
[2024-05-09] MEDS: ATORVASTATIN CALCIUM 40 MG TABLET 80 MG PO (08:04)
[2024-05-09] MEDS: CLOPIDOGREL BISULFATE 75 MG TABLET PO (08:04)
[2024-05-09] MEDS: ALPRAZOLAM 1 MG TABLET PO (08:04)
[2024-05-09] MEDS: METHYLPREDNISOLONE SOD SUCC PF 40 MG/ML VIAL IVP (08:05)
[2024-05-09] MEDS: ISOSORBIDE MONONITRATE 30 MG TAB.ER.24H PO (08:05)
[2024-05-09] MEDS: THEOPHYLLINE 300 MG TAB.ER.12H PO (08:06)
--- NOTE | 2024-05-09 08:30 | P.DS_ITS ---
DS: Providers Provider Date of admission: 05/05/24 08:54 Primary care physician: Charlie Richardson MD Consults: 05/04/24 Consult to Assessment Counselor Routine Reason for consult:: Food/Nutrition Financial Concerns Transportation DS: Diagnosis Discharge Diagnosis (1) Acute hypoxemic respiratory failure: (2) Acute exacerbation of chronic obstructive pulmonary disease (COPD): (3) COVID-19: (4) Hypertension: Qualifiers: Hypertension type: primary hypertension Qualified Code(s): I10 - Essential (primary) hypertension (5) Elevated troponin: (6) HLD (hyperlipidemia): Qualifiers: Hyperlipidemia type: unspecified Qualified Code(s): E78.5 - Hyperlipidemia, unspecified (7) Coronary artery disease: Qualifiers: Coronary Disease-Associated Artery/Lesion type: [place] artery [place] vs. transplanted heart: [place] heart Associated angina: without angina Qualified Code(s): I25.10 - Atherosclerotic heart disease of [place] coronary artery without angina pectoris (8) Hypothyroid: Qualifiers: Hypothyroidism type: unspecified Qualified Code(s): E03.9 - Hypothyroidism, unspecified Plan Acute hypoxemic respiratory failure: due to COVID-19 and COPD exacerbation. Started patient on IV Solu-Medrol and inhaled DuoNebs. Able to be weaned off of supplemental oxygen overnight Acute exacerbation of chronic obstructive pulmonary disease (COPD): See above, now with left shift consistent with bacterial process -Whit blood cell count normalk COVID-19: See above -too late to start remdesivir Hypertension and history of chronic combined congestive heart failure: Continue with home medications-stable, BNP normal Elevated troponin: Likely related to COVID-19 HLD (hyperlipidemia): Continue with home medications Coronary artery disease: Does have dyspnea but that is related to the COVID-19, no chest pain, check BNP in a.m. Hypothyroid: Continue current medications Abdominal pain with emesis and diarrhea-Stool studies pending, acute abdominal series from yesterday unremarkable, will adjust steroids as that may be inciting agents, otherwise continue with current medications Generalized anxiety disorder-continue with home medications Admission status: Patient initially placed in observation, failing at time., Persistent hypoxia, medically necessary treatment will span 2 midnights. Inpatient status, with changes in medication now changing to Zosyn with possible aspiration pneumonia, maintain inpatient status ? ? DS: Summary Hospital Course Hospital Course: Patient admitted with acute hypoxia and shortness of breath secondary to acute COVID-19. Placed on antibiotics and steroids and inhalers. Patient was slow to improve, still has some wheezes even today but much improved lung function and she is been able to be off of supplemental oxygen over the last 36 hours. Started with a change of antibiotics to Zosyn. Yesterday she had increasing abdominal pain nausea vomiting unable to be discharged yesterday secondary to unable to eat. This morning she does feel much better after medications were adjusted yesterday. At this point she is improved closer to her baseline she is not back to baseline but is much improved from her lung function and abdominal pain. She will be discharged to home in improving condition. Medications see list. Follow-up with me in the office late next week. Time Spent with Patient Time attestation: Total time spent providing and/or coordinating discharge services: Time spent: greater than 30 minutes Exam Constitutional Vital Signs, click to edit/add: Last Vital Signs Temp 98.0 F 05/09/24 07:30 Pulse 86 05/09/24 07:30 Resp 16 05/09/24 07:30 BP 132/82 05/09/24 07:30 Pulse Ox 93 L 05/09/24 07:30 O2 Del Method Room Air 05/09/24 07:30 O2 Flow Rate 0.5 05/07/24 18:07 Documenting provider has reviewed patient's vital signs: yes Common normals: no apparent distress Chest Common normals: inspection of chest normal Respiratory Common normals: normal respiratory effort and no retractions Auscultation: wheezes (Much improved) Cardio Common normals: regular rate and regular rhythm GI Common normals: Normal to inspection, nondistended, normoactive bowel sounds present, soft to palpation and non-tender DS: Data Data Completed and Pending Labs on day of discharge: Labs from last 24 hours 05/09/24 05/08/24 05/08/24 05:58 21:11 16:28 WBC 9.4 RBC 4.37 Hgb 12.0 Hct 37.1 MCV 84.9 MCH 27.5 MCHC 32.3 RDW 14.5 Plt Count 270 MPV 10.5 Neut % (Auto) 81.0 H Lymph % (Auto) 12.0 L [place] % (Auto) 5.1 Eos % (Auto) 0.0 L Baso % (Auto) 0.1 L Neut # (Auto) 7.6 H Lymph # (Auto) 1.1 L [place] # (Auto) 0.5 Eos # (Auto) 0.0 Baso # (Auto) 0.0 Abs Immat Gran (auto) 0.17 H Imm/Tot Granulo (auto) 1.8 H Sodium 140 Potassium 4.4 Chloride 103 Carbon Dioxide 30.7 Anion Gap 10.7 BUN 34.0 H Creatinine 1.06 H Est GFR ( Amer) >60 Est GFR (Non-Af Amer) 53 L BUN/Creatinine Ratio 32.1 Glucose 186 H Calcium 8.9 Total Bilirubin 0.4 AST 12 L ALT 20 Alkaline Phosphatase 72 Total Protein 6.0 L Albumin 2.7 L Globulin 3.3 Albumin/Globulin Ratio 0.8 Amylase Lipase Theophylline 19.4 POC Glucose 206 H 168 H 05/08/24 05/08/24 11:55 06:13 WBC RBC Hgb Hct MCV MCH MCHC RDW Plt Count MPV Neut % (Auto) Lymph % (Auto) [place] % (Auto) Eos % (Auto) Baso % (Auto) Neut # (Auto) Lymph # (Auto) [place] # (Auto) Eos # (Auto) Baso # (Auto) Abs Immat Gran (auto) Imm/Tot Granulo (auto) Sodium Potassium Chloride Carbon Dioxide Anion Gap BUN Creatinine Est GFR ( Amer) Est GFR (Non-Af Amer) BUN/Creatinine Ratio Glucose Calcium Total Bilirubin AST ALT Alkaline Phosphatase Total Protein Albumin Globulin Albumin/Globulin Ratio Amylase 79 Lipase 24.0 Theophylline POC Glucose 180 H Discharge Plan Discharge Disposition: Home, Self-Care Discharge Medications: New amoxicillin-pot clavulanate 875-125 mg tablet 1 tab PO BID Qty: 20 0RF prednisone 10 mg tablet 40 mg PO DAILY Qty: 32 0RF Rx Instructions: 4/day for 3 days, 3/day for 3 days, 2/day for 3 days, 1/day for 3 days, 1/2 /day for 4 days Continued pantoprazole 40 mg tablet,delayed release (DR/EC) 40 mg PO DAILY albuterol sulfate 90 mcg/actuation HFA aerosol inhaler 1 puff INHALATION Q4H PRN (Reason: shortness of breath or wheezing) isosorbide mononitrate 30 mg Tablet Extended Release 24 Hr 30 mg PO QD Qty: 30 11RF carvedilol [Coreg] 12.5 mg tablet 12.5 mg PO BID Qty: 60 11RF Rx Instructions: must administer with a meal/food nitroglycerin 0.4 mg tablet, sublingual 0.4 mg sublingual Q5M MDD 3/day PRN (Reason: chest pain) Qty: 30 11RF Rx Instructions: do not exceed 3 doses per episode atorvastatin 80 mg tablet 80 mg PO DAILY alprazolam 1 mg tablet 1 mg PO BID clopidogrel 75 mg tablet 75 mg PO DAILY aspirin 81 mg tablet,delayed release (DR/EC) 81 mg PO DAILY buspirone 10 mg tablet 10 mg PO BID gabapentin 300 mg capsule 300 mg PO TID dapagliflozin propanediol [Farxiga] 10 mg tablet 10 mg PO DAILY levothyroxine 75 mcg Tablet 75 mcg PO ACB Qty: 30 11RF cyclobenzaprine 10 mg tablet 10 mg PO BID PRN (Reason: muscle spasm) tramadol 50 mg tablet 50 mg PO Q6H PRN (Reason: pain) trazodone 100 mg tablet 100 mg PO .QHS Print Language: Welsh Forms: Portal Instructions
--- NOTE | 2024-05-09 08:58 | SWNOTE1 ---
SW spoke with pt about being discharged today. Pt does have concerns about her not having food. She stated she gets paid on the first of the month and the second Sunday of the month she get her bigger check. SW did ask about food pantries and she stated they are not open on Fridays and she has already been to them this month. SW asked when her son gets paid? She stated she is not sure but she will check with him and is hoping it is this week. SW to check other resources.
--- NOTE | 2024-05-09 09:01 | SWNOTE1 ---
SW also asked about a ride home, pt voiced that her friend is picking her up.
[2024-05-09 10:40] VITALS: PULSE 80; O2SAT 90
--- NOTE | 2024-05-13 13:27 | CM.NOTE ---
1st attempt, no answer.
== END 2024-05-09 11:23 | disposition home or self-care (01) | DRG 177 ==
LOC: ER 08:34 → MS 05-05 05:59
PROVIDERS: Emergency Medicine; Internal Medicine; Admitting Provider Family Medicine; Emergency Provider Student in an Organized Health Care Education/Training Program; PCP Family Medicine; Visit Provider Family Medicine
DX: U07.1 COVID-19 (principal); J69.0 Pneumonitis due to inhalation of food and vomit; J96.01 Acute respiratory failure with hypoxia; J44.0 Chronic obstructive pulmonary disease with (acute) lower respiratory infection; J44.1 Chronic obstructive pulmonary disease with (acute) exacerbation; I11.0 Hypertensive heart disease with heart failure; I50.42 Chronic combined systolic (congestive) and diastolic (congestive) heart failure; E03.9 Hypothyroidism, unspecified; E78.5 Hyperlipidemia, unspecified; F17.210 Nicotine dependence, cigarettes, uncomplicated; F41.1 Generalized anxiety disorder; I25.10 Atherosclerotic heart disease of native coronary artery without angina pectoris; Z79.82 Long term (current) use of aspirin; Z79.02 Long term (current) use of antithrombotics/antiplatelets; Z79.890 Hormone replacement therapy; Z79.52 Long term (current) use of systemic steroids; Z79.899 Other long term (current) drug therapy
CPT/HCPCS: 36415; 71046; 74022; 80048; 80053; 80198; 82150; 82948; 83690; 83880; 84484; 85025; 85610; 85730; 87045; 87046; 87427; 87493; 87804; 87811; 93005; 94640; 94761; 96374; 99285; 99406; G0378; J1650; J2405; J2543; J2919

== ENCOUNTER 2024-05-20 06:02 | Inpatient (IN) | payer OTHER, SELFPAY ==
[2024-05-20] VITALS (76 sets, daily range): BP systolic 90–127; BP diastolic 63–84; PULSE 72–117; RESP 14; TEMP 36.6–37; O2SAT 83–100; BMI 25.1; BMI 23.8
--- NOTE | 2024-05-20 06:15 | ECG_ITS ---
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
--- NOTE | 2024-05-20 06:15 | XR_ITS ---
The [address] [address] Patient Name: EMERY JETT MRN: [id number] date: 1960 Sex: F Assigned Patient Location: ED.MAIN Current Patient Location: ER Accession/Order Number: [id number] Exam Date: 05/20/2024 07:19 Report Date: 05/20/2024 08:16 At the request of: COSME CASTRO Procedure: XR chest 1V EXAM: XR chest 1V HISTORY: SOB COMPARISON: Chest radiograph dated 05/04/2024. TECHNIQUE: AP erect portable chest radiograph performed. FINDINGS: Stable left subclavian dual-lead pacemaker with leads overlying the right atrium and the right ventricle. The trachea is unremarkable. The heart size is within normal limits. New patchy and dense airspace disease, severe within the right mid and lower chest and mild within the right upper chest which in the right clinical setting is consistent with a pneumonia. There is no pulmonary vascular congestion. The left lung esquivel are clear. There is no pneumothorax or osseous abnormality. XR/XR chest 1V IMPRESSION: New patchy and dense airspace disease, severe within the right mid and lower chest and mild within the right upper chest which in the right clinical setting is consistent with a pneumonia. Electronically authenticated by: PRESTON MESA Date: 05/20/2024 08:16
[2024-05-20] MEDS: IPRATROPIUM/ALBUTEROL SULFATE 3 ML AMPUL.NEB IH ×4 (06:30→22:48)
[2024-05-20] MEDS: METHYLPREDNISOLONE SOD SUCC PF 125 MG/2 ML VIAL IVP ×3 (06:34→18:17)
--- NOTE | 2024-05-20 06:36 | ED.SOB1 ---
HPI - SOB/Dyspnea General Chief Complaint: Shortness of Breath/Dyspnea Stated Complaint: CHEST PAIN Time Seen by Provider: 05/20/24 06:03 History of Present Illness HPI Narrative: This 64-year-old female with a history of COPD and tobacco use and coronary artery disease is brought to the emergency department by EMS for evaluation of shortness of breath. The patient states she has been short of breath all night. She was unable to get to sleep due to her shortness of breath. She also states she is having the chills. She has pain in her chest with deep breathing. She denies any abdominal pain. She has not had any nausea or vomiting. Related Data Home Medications ?Medication ?Instructions ?Recorded ?Confirmed alprazolam 1 mg tablet 1 mg PO BID 06/10/23 05/04/24 aspirin 81 mg tablet,delayed 81 mg PO DAILY 06/10/23 05/04/24 release atorvastatin 80 mg tablet 80 mg PO DAILY 06/10/23 05/04/24 buspirone 10 mg tablet 10 mg PO BID 06/10/23 05/04/24 clopidogrel 75 mg tablet 75 mg PO DAILY 06/10/23 05/04/24 dapagliflozin propanediol 10 mg 10 mg PO DAILY 06/10/23 05/04/24 tablet (Farxiga) gabapentin 300 mg capsule 300 mg PO TID 06/10/23 05/04/24 albuterol sulfate 90 mcg/actuation 1 puff inhalation Q4H PRN 06/29/23 05/04/24 aerosol inhaler shortness of breath or wheezing pantoprazole 40 mg tablet,delayed 40 mg PO DAILY 06/29/23 05/04/24 release cyclobenzaprine 10 mg tablet 10 mg PO BID PRN muscle spasm 05/04/24 05/04/24 tramadol 50 mg tablet 50 mg PO Q6H PRN pain 05/04/24 05/04/24 trazodone 100 mg tablet 100 mg PO .QHS 05/04/24 05/04/24 Previous Rx's ?Medication ?Instructions ?Recorded levothyroxine 75 mcg tablet 75 mcg PO ACB #30 tabs 06/11/23 carvedilol 12.5 mg tablet (Coreg) 12.5 mg PO BID #60 tabs 08/23/23 isosorbide mononitrate 30 mg 30 mg PO QD #30 tabs 08/23/23 tablet,extended release 24 hr nitroglycerin 0.4 mg sublingual 0.4 mg sublingual Q5M PRN chest 08/23/23 tablet pain #30 tabs amoxicillin 875 mg-potassium 1 tab PO BID #20 tabs 05/09/24 clavulanate 125 mg tablet prednisone 10 mg tablet 40 mg (4 x 10 mg) PO DAILY #32 tabs 05/09/24 Allergies Allergy/AdvReac Type Severity Reaction Status Date / Time No Known Drug Allergies Allergy Verified 08/20/23 21:47 Review of Systems ROS Status of ROS 10 or more systems reviewed and unremarkable except as noted in history and below [facility] Medical History (Updated 05/20/24 @ 07:03 by Socorro Dawson MD) Acute hypoxemic respiratory failure ?J96.01 - Acute respiratory failure with hypoxia (ICD-10) Acute exacerbation of chronic obstructive pulmonary disease (COPD) ?J44.1 - Chronic obstructive pulmonary disease with (acute) exacerbation (ICD-10) COVID-19 ?U07.1 - COVID-19 (ICD-10) Hypothyroid ?E03.9 - Hypothyroidism, unspecified (ICD-10) HLD (hyperlipidemia) ?E78.5 - Hyperlipidemia, unspecified (ICD-10) Acute exacerbation of chronic obstructive pulmonary disease ?J44.1 - Chronic obstructive pulmonary disease with (acute) exacerbation (ICD-10) Hypertensive emergency ?I16.1 - Hypertensive emergency (ICD-10) Acute gastroenteritis ?K52.9 - Noninfective gastroenteritis and colitis, unspecified (ICD-10) Hypoxemia ?R09.02 - Hypoxemia (ICD-10) Chest pain ?R07.9 - Chest pain, unspecified (ICD-10) Coronary artery disease ?I25.10 - Atherosclerotic heart disease of [place] coronary artery without angina pectoris (ICD-10) Elevated troponin ?R79.89 - Other specified abnormal findings of blood chemistry (ICD-10) Pneumonia ?J18.9 - Pneumonia, unspecified organism (ICD-10) Anxiety ?F41.9 - Anxiety disorder, unspecified (ICD-10) Acute kidney injury ?N17.9 - Acute kidney failure, unspecified (ICD-10) Acute anxiety ?F41.9 - Anxiety disorder, unspecified (ICD-10) Pacemaker ?Z95.0 - Presence of cardiac pacemaker (ICD-10) Iron deficiency anemia ?D50.9 - Iron deficiency anemia, unspecified (ICD-10) COPD (chronic obstructive pulmonary disease) ?J44.9 - Chronic obstructive pulmonary disease, unspecified (ICD-10) Hypoxia ?R09.02 - Hypoxemia (ICD-10) Dyspnea ?R06.00 - Dyspnea, unspecified (ICD-10) Elevated brain natriuretic peptide (BNP) level ?R79.89 - Other specified abnormal findings of blood chemistry (ICD-10) Hypertension ?I10 - Essential (primary) hypertension (ICD-10) Elevated troponin ?R79.89 - Other specified abnormal findings of blood chemistry (ICD-10) Acute dyspnea ?R06.00 - Dyspnea, unspecified (ICD-10) IBS (irritable bowel syndrome) ?K58.9 - Irritable bowel syndrome without diarrhea (ICD-10) Anxiety ?F41.9 - Anxiety disorder, unspecified (ICD-10) Heart attack ?I21.9 - Acute myocardial infarction, unspecified (ICD-10) Sciatic leg pain ?M54.30 - Sciatica, unspecified side (ICD-10) Herniated disc, cervical ?M50.20 - Other cervical disc displacement, unspecified cervical region (ICD-10) Surgical History History of appendectomy ?Z90.49 - Acquired absence of other specified parts of digestive tract (ICD-10) History of heart artery stent ?Z95.5 - Presence of coronary angioplasty implant and graft (ICD-10) Family History (Updated 05/04/24 @ 10:45 by Amanda Remy) Mother Family history of CHF (congestive heart failure) Family history of hypertension Father Family history of CHF (congestive heart failure) Brother Family history of CHF (congestive heart failure) Other Family history of diabetes mellitus Family history of myocardial infarction Social History (Updated 05/04/24 @ 10:46 by Amanda Remy) Within the past year, how often did you have a drink containing alcohol: monthly or less Smoking status: Light tobacco smoker Nicotine containing products detail: 1 pack/week Non-prescribed substance use: cannabis (any form) Non-prescribed substance use details: smokes marijuana, gummies Previous occupational history: disabled Highest level of school completed/degree received: high school graduate Are you now , , , , never or living with a partner: In a typical week, how many times do you talk on the telephone with family, friends, or neighbors: once per week How often do you get together with friends or relatives: never How often do you attend sikhism or denominational services: 4 or more times per year Do you belong to any clubs or organizations such as sikhism groups unions, fraternal or athletic groups, or school groups: no Total score: 1 Score interpretation: A score of less than or equal to 1 indicates the most socially isolated. Little interest or pleasure in doing things: not at all Feeling down, depressed, or hopeless: not at all Feel stressed/tense/nervous/anxious/difficulty sleeping: very much Life stressors: recent of family or friend Life stressor details: 2020 lost family Do you think of yourself as: straight/heterosexual Gender Identity: female Exam Narrative Exam Narrative: Vital signs and Nursing Notes reviewed: Patient is tachycardic upon arrival with a pulse of 114, blood pressure is moderately low at 98/70, pulse ox was low in the 70s to 80s on room air General: HEENT: Normocephalic atraumatic, Chest: Diffusely diminished breath sounds with expiratory wheezing and accessory muscle use, patient is grunting to a certain extent, moderate respiratory distress upon arrival-placed on BiPAP CVS: Regular rate and rhythm S1-S2, tachycardic with pulse at 114 no murmurs rubs or gallops, pulses are brisk and equal bilaterally ABD: Soft, nondistended, nontender, no rebound guarding or rigidity, bowel sounds are normal, no pulsatile masses appreciated Extremities: Moving all extremities, no lower extremity tenderness or swelling noted, negative Homans' sign, pulses are brisk and equal bilaterally Skin: Cool, pale Neuro: No focal deficits Constitutional Vital Signs, click to edit/add: Last Vital Signs Temp 98.6 F 05/20/24 06:04 Pulse 115 H 05/20/24 06:35 Resp 28 H 05/20/24 06:35 BP 98/73 05/20/24 06:35 Pulse Ox 100 05/20/24 06:36 O2 Del Method BIPAP 05/20/24 06:36 O2 Flow Rate 15 05/20/24 06:04 FiO2 100 05/20/24 06:36 Course Vital Signs Vital signs: Vital Signs Temperature 98.6 F 05/20/24 06:04 Pulse Rate 114 H 05/20/24 06:04 Respiratory Rate 42 H 05/20/24 06:04 Pulse Oximetry 87 L 05/20/24 06:04 Oxygen Delivery Method Nonrebreather 05/20/24 06:04 Oxygen Delivery Flow Rate 15 05/20/24 06:04 Temperature 98.6 F 05/20/24 06:04 Pulse Rate 115 H 05/20/24 06:35 Respiratory Rate 28 H 05/20/24 06:35 Blood Pressure 98/73 05/20/24 06:35 Pulse Oximetry 100 05/20/24 06:36 Oxygen Delivery Method BIPAP 05/20/24 06:36 Oxygen Delivery Flow Rate 15 05/20/24 06:04 Fraction of Inspired Oxygen 100 05/20/24 06:36 MDM - SOB/Dyspnea MDM Narrative Medical decision making narrative: This 64-year-old female with a history of COPD and tobacco use as well as coronary artery disease brought to the emergency department by EMS from home for evaluation of shortness of breath that started yesterday. The patient states she was not able to sleep all night due to her dyspnea. On arrival she was markedly short of breath and taken to room 6. Respiratory therapy was called and she was placed on BiPAP and given a DuoNeb treatment, IV Solu-Medrol. She responded appropriately to this and her pulse ox went from the 80s to the 90s. EKG done upon arrival was a junctional rhythm at 116 bpm. At the time of this dictation the only blood work that is available is a blood gas. She has a normal pH. She is not retaining CO2. She will be given a milligram of IV Ativan as she does have anxiety as well as COPD and heart disease. Cardiac workup, lactic acid, blood cultures, influenza, COVID-19 and x-ray is pending at the time of this dictation. I did place a call to her family physician, Dr. Richardson to let him know that she is in the emergency department at this time. Medical Records Attestation: I reviewed the patient's medical records. Lab Data Labs: Lab Results 05/20/24 Range/Units 06:38 Puncture Site Rr ABG pH 7.337 L (7.350-7.450) ABG pCO2 38.8 (35.0-45.0) mmHg ABG pO2 117.0 H (80.0-100.0) mmHg ABG HCO3 20.8 L (22.0-26.0) mmol/L ABG O2 Saturation 98.9 % ABG Base Excess -5.0 L (-2.0-2.0) mmol/L Tyrell Test Positive (POSITIVE) Minute Volume 21.4 FiO2 100 % BiPAP 168 ECG Data Attestation: I personally reviewed and interpreted this ECG as follows: (Junctional rhythm at 116 bpm, normal axis, nonspecific ST changes, no acute ST segment elevation or T wave inversion) Discharge Plan Discharge Chief Complaint: Shortness of Breath/Dyspnea Clinical Impression: Acute respiratory distress Patient Disposition: Still a Patient Prescriptions / Home Meds: No Action pantoprazole 40 mg tablet,delayed release (DR/EC) 40 mg PO DAILY albuterol sulfate 90 mcg/actuation HFA aerosol inhaler 1 puff INHALATION Q4H PRN (Reason: shortness of breath or wheezing) isosorbide mononitrate 30 mg Tablet Extended Release 24 Hr 30 mg PO QD Qty: 30 11RF carvedilol [Coreg] 12.5 mg tablet 12.5 mg PO BID Qty: 60 11RF Rx Instructions: must administer with a meal/food nitroglycerin 0.4 mg tablet, sublingual 0.4 mg sublingual Q5M MDD 3/day PRN (Reason: chest pain) Qty: 30 11RF Rx Instructions: do not exceed 3 doses per episode atorvastatin 80 mg tablet 80 mg PO DAILY alprazolam 1 mg tablet 1 mg PO BID clopidogrel 75 mg tablet 75 mg PO DAILY aspirin 81 mg tablet,delayed release (DR/EC) 81 mg PO DAILY buspirone 10 mg tablet 10 mg PO BID gabapentin 300 mg capsule 300 mg PO TID dapagliflozin propanediol [Farxiga] 10 mg tablet 10 mg PO DAILY levothyroxine 75 mcg Tablet 75 mcg PO ACB Qty: 30 11RF cyclobenzaprine 10 mg tablet 10 mg PO BID PRN (Reason: muscle spasm) tramadol 50 mg tablet 50 mg PO Q6H PRN (Reason: pain) trazodone 100 mg tablet 100 mg PO .QHS amoxicillin-pot clavulanate 875-125 mg tablet 1 tab PO BID Qty: 20 0RF prednisone 10 mg tablet 40 mg PO DAILY Qty: 32 0RF Rx Instructions: 4/day for 3 days, 3/day for 3 days, 2/day for 3 days, 1/day for 3 days, 1/2 /day for 4 days Print Language: Sami Referrals: Charlie Richardson MD [Primary Care Provider] - 1 week
[2024-05-20 06:46] LABS: ABG PCO2 38.8 mmHg (35.0-45.0); HCO3 ABG 20.8 mmol/L (22.0-26.0); pH ABG 7.337 (7.350-7.450)
[2024-05-20 06:47] LABS: Allen Test POSITIVE (POSITIVE); BIPAP Pressure 16/8; Fractionated Inspired Oxygen 100 %; Minute Volume 21.4; O2 Mode BIPAP; Oxygen Saturation ABG 98.9 %; Puncture Site RR; Rate 32
--- NOTE | 2024-05-20 06:55 | RESP.RT ---
Titrated down to 80%
[2024-05-20] MEDS: LORAZEPAM 2 MG/ML VIAL 1 MG IV (07:06)
[2024-05-20] MEDS: 0.9 % SODIUM CHLORIDE 1,000 ML 1000 ML IV (07:06)
[2024-05-20 07:16] LABS: Eosinophils Percent Auto 1.1 % (0.9-7.0); Hematocrit 45.9 % (36.0-48.0); Hemoglobin 14.1 g/dL (12.0-16.0); Lymphocytes Absolute Auto 1.2 10^3/uL (1.2-3.8); Lymphocytes Percent Auto 32.1 % (20.5-60.0); Mean Corpuscular HGB Conc 30.7 g/dL (29.9-35.2); Mean Corpuscular Hemoglobin 27.2 pg (26.7-34.0); Mean Corpuscular Volume 88.6 fL (81.0-99.0); Mean Platelet Volume 10.2 fL (9.5-13.5); Monocytes Absolute Auto 0.1 10^3/uL (0.3-0.8); Monocytes Percent Auto 3.3 % (1.7-12.0); Neutrophils Absolute Auto 2.3 10^3/uL (1.4-6.5); Neutrophils Percent Auto 63.5 % (43.0-75.0); Platelet Count 245 10^3/uL (150-450); Red Blood Count 5.18 10^6/uL (4.20-5.40); White Blood Count 3.7 10^3/uL (4.0-11.0)
[2024-05-20 07:39] LABS: Alanine Aminotransferase 45 U/L (14-59); Albumin Globulin Ratio 0.9; Alkaline Phosphatase 90 U/L (46-116); Aspartate Amino Transferase 71 U/L (15-37); BUN Creatinine Ratio 17.5; Bilirubin Total 0.5 mg/dL (0.2-1.0); Calcium 8.5 mg/dL (8.5-10.1); Carbon Dioxide 26.9 mmol/L (21.0-32.0); Chloride 106 mmol/L (98-107); Estimated GFR (African America >60 (>=60 mL/min/1.73m^2); Estimated GFR (Non-African Ame 54 (>=60 mL/min/1.73m^2); Globulin 3.3 g/dL; Glucose 149 mg/dL (74-106); Potassium 3.9 mmol/L (3.5-5.1); Sodium 141 mmol/L (136-145); Total Protein 6.3 g/dL (6.4-8.2)
[2024-05-20 07:43] LABS: Troponin I High Sensitivity 57.6 pg/mL (4.0-51.3)
[2024-05-20 07:44] LABS: Lactate/Lactic Acid 3.3 mmol/L (0.4-2.0)
[2024-05-20 07:58] LABS: Influenza Virus A Antigen Negative; Influenza Virus B Antigen Negative; Internal Control Within Normal Limits; SARS-CoV-2 Ag NEGATIVE (NEGATIVE)
--- NOTE | 2024-05-20 08:03 | P.HP_ITS ---
HPI H&P: HPI History of Present Illness Chief complaint: CHEST PAIN Narrative: Patient presented to the emergency room with increasing cough and shortness of breath, found to have acute hypoxia in ER requiring BiPAP ventilation. When I saw patient in the emergency room, having significant respiratory distress with mask in place, does feel better with the mask on, minimal sputum production but coughs been getting worse over the last couple days. Denies chest pain does have some mild abdominal pain, no diarrhea or constipation Opioid HPI Opioid Management Most Recent Pain and Opioid Data: Last Pain Scale 0 05/09/24 08:16 05/09/24 Last Pain Intensity 0 10/11/23 16:32 10/11/23 Last ORT Total Score 1 05/04/24 10:02 05/04/24 Last ORT Risk Category Low Risk 05/04/24 10:02 05/04/24 Ur Phencyclidine Scrn Negative (NEGATIVE) 06/10/23 09:30 05/15 01/04 Review of Systems ROS Status of ROS 10 or more systems reviewed and unremark able except as noted in history and below [facility] Medical History (Updated 05/20/24 @ 07:03 by Socorro Dawson MD) Acute hypoxemic respiratory failure ?J96.01 - Acute respiratory failure with hypoxia (ICD-10) Acute exacerbation of chronic obstructive pulmonary disease (COPD) ?J44.1 - Chronic obstructive pulmonary disease with (acute) exacerbation (ICD-10) COVID-19 ?U07.1 - COVID-19 (ICD-10) Hypothyroid ?E03.9 - Hypothyroidism, unspecified (ICD-10) HLD (hyperlipidemia) ?E78.5 - Hyperlipidemia, unspecified (ICD-10) Acute exacerbation of chronic obstructive pulmonary disease ?J44.1 - Chronic obstructive pulmonary disease with (acute) exacerbation (ICD-10) Hypertensive emergency ?I16.1 - Hypertensive emergency (ICD-10) Acute gastroenteritis ?K52.9 - Noninfective gastroenteritis and colitis, unspecified (ICD-10) Hypoxemia ?R09.02 - Hypoxemia (ICD-10) Chest pain ?R07.9 - Chest pain, unspecified (ICD-10) Coronary artery disease ?I25.10 - Atherosclerotic heart disease of [place] coronary artery without angina pectoris (ICD-10) Elevated troponin ?R79.89 - Other specified abnormal findings of blood chemistry (ICD-10) Pneumonia ?J18.9 - Pneumonia, unspecified organism (ICD-10) Anxiety ?F41.9 - Anxiety disorder, unspecified (ICD-10) Acute kidney injury ?N17.9 - Acute kidney failure, unspecified (ICD-10) Acute anxiety ?F41.9 - Anxiety disorder, unspecified (ICD-10) Pacemaker ?Z95.0 - Presence of cardiac pacemaker (ICD-10) Iron deficiency anemia ?D50.9 - Iron deficiency anemia, unspecified (ICD-10) COPD (chronic obstructive pulmonary disease) ?J44.9 - Chronic obstructive pulmonary disease, unspecified (ICD-10) Hypoxia ?R09.02 - Hypoxemia (ICD-10) Dyspnea ?R06.00 - Dyspnea, unspecified (ICD-10) Elevated brain natriuretic peptide (BNP) level ?R79.89 - Other specified abnormal findings of blood chemistry (ICD-10) Hypertension ?I10 - Essential (primary) hypertension (ICD-10) Elevated troponin ?R79.89 - Other specified abnormal findings of blood chemistry (ICD-10) Acute dyspnea ?R06.00 - Dyspnea, unspecified (ICD-10) IBS (irritable bowel syndrome) ?K58.9 - Irritable bowel syndrome without diarrhea (ICD-10) Anxiety ?F41.9 - Anxiety disorder, unspecified (ICD-10) Heart attack ?I21.9 - Acute myocardial infarction, unspecified (ICD-10) Sciatic leg pain ?M54.30 - Sciatica, unspecified side (ICD-10) Herniated disc, cervical ?M50.20 - Other cervical disc displacement, unspecified cervical region (ICD- 10) Surgical History History of appendectomy ?Z90.49 - Acquired absence of other specified parts of digestive tract (ICD- 10) History of heart artery stent ?Z95.5 - Presence of coronary angioplasty implant and graft (ICD-10) Family History (Updated 05/04/24 @ 10:45 by Amanda Remy) Mother Family history of CHF (congestive heart failure) Family history of hypertension Father Family history of CHF (congestive heart failure) Brother Family history of CHF (congestive heart failure) Other Family history of diabetes mellitus Family history of myocardial infarction Social History (Updated 05/04/24 @ 10:46 by Amanda Remy) Within the past year, how often did you have a drink containing alcohol: monthly or less Smoking status: Light tobacco smoker Nicotine containing products detail: 1 pack/week Non-prescribed substance use: cannabis (any form) Non-prescribed substance use details: smokes marijuana, gummies Previous occupational history: disabled Highest level of school completed/degree received: high school graduate Are you now , , , , never or living with a partner: In a typical week, how many times do you talk on the telephone with family, friends, or neighbors: once per week How often do you get together with friends or relatives: never How often do you attend adventism or congregation services: 4 or more times per year Do you belong to any clubs or organizations such as adventism groups unions, [employer] or athletic groups, or school groups: no Total score: 1 Score interpretation: A score of less than or equal to 1 indicates the most socially isolated. Little interest or pleasure in doing things: not at all Feeling down, depressed, or hopeless: not at all Feel stressed/tense/nervous/anxious/difficulty sleeping: very much Life stressors: recent of family or friend Life stressor details: 2020 lost family Do you think of yourself as: straight/heterosexual Gender Identity: female Meds Home Medications and Allergies Home Medications ?Medication ?Instructions ?Recorded ?Confirmed ?Type alprazolam 1 mg tablet 1 mg PO BID 06/10/23 05/20/24 History aspirin 81 mg tablet,delayed 81 mg PO DAILY 06/10/23 05/20/24 History release atorvastatin 80 mg tablet 80 mg PO DAILY 06/10/23 05/20/24 History buspirone 10 mg tablet 10 mg PO BID 06/10/23 05/20/24 History clopidogrel 75 mg tablet 75 mg PO DAILY 06/10/23 05/20/24 History dapagliflozin propanediol 10 mg 10 mg PO DAILY 06/10/23 05/20/24 History tablet (Farxiga) gabapentin 300 mg capsule 300 mg PO TID 06/10/23 05/20/24 History levothyroxine 75 mcg tablet 75 mcg PO ACB #30 tabs 06/11/23 05/20/24 Rx albuterol sulfate 90 mcg/actuation 1 puff inhalation Q4H PRN 06/29/23 05/20/24 History aerosol inhaler shortness of breath or wheezing pantoprazole 40 mg tablet,delayed 40 mg PO DAILY 06/29/23 05/20/24 History release carvedilol 12.5 mg tablet (Coreg) 12.5 mg PO BID #60 tabs 08/23/23 05/04/24 Rx isosorbide mononitrate 30 mg 30 mg PO QD #30 tabs 08/23/23 05/20/24 Rx tablet,extended release 24 hr nitroglycerin 0.4 mg sublingual 0.4 mg sublingual Q5M PRN chest 08/23/23 05/20/24 Rx tablet pain #30 tabs cyclobenzaprine 10 mg tablet 10 mg PO BID PRN muscle spasm 05/04/24 05/20/24 History tramadol 50 mg tablet 50 mg PO Q6H PRN pain 05/04/24 05/20/24 History trazodone 100 mg tablet 100 mg PO .QHS 05/04/24 05/20/24 History gabapentin 600 mg tablet 600 mg PO Q12H 05/20/24 05/20/24 History Allergies Allergy/AdvReac Type Severity Reaction Status Date / Time No Known Drug Allergies Allergy Verified 08/20/23 21:47 Exam Constitutional Vital Signs, click to edit/add: Last Vital Signs Temp 98.6 F 05/20/24 06:04 Pulse 110 H 05/20/24 07:20 Resp 18 05/20/24 07:20 BP 106/84 05/20/24 07:16 Pulse Ox 95 05/20/24 07:20 O2 Del Method BIPAP 05/20/24 06:36 O2 Flow Rate 15 05/20/24 06:04 FiO2 100 05/20/24 06:36 Documenting provider has reviewed patient's vital signs: yes Common normals: apparent distress (Mild conversational dyspnea) Chest Common normals: inspection of chest normal Respiratory Common normals: no retractions and no use of accessory muscles; abnormal respiratory effort (Modconversational dyspnea, persistent cough during eval) Auscultation: rhonchi, wheezes (Tight wheeze) and diminished lung sounds Cardio Common normals: regular rate, regular rhythm and no murmurs GI Common normals: Normal to inspection, nondistended, normoactive bowel sounds present; tender Palpation: tender (Mild tenderness upper abdomen) Extremity Common normals: no clubbing, cyanosis or edema Results Labs Labs: Short CBC 05/20/24 Range/Units 06:55 WBC 3.7 L (4.0-11.0) 10^3/uL Hgb 14.1 (12.0-16.0) g/dL Hct 45.9 (36.0-48.0) % Plt Count 245 (150-450) 10^3/uL BMP 05/20/24 06:55 Sodium 141 Potassium 3.9 Chloride 106 Carbon Dioxide 26.9 BUN 18.0 Creatinine 1.03 H Glucose 149 H Calcium 8.5 Liver Function 05/20/24 Range/Units 06:55 Total Bilirubin 0.5 (0.2-1.0) mg/dL AST 71 H (15-37) U/L ALT 45 (14-59) U/L Alkaline Phosphatase 90 (46-116) U/L Albumin 3.0 L (3.4-5.0) g/dL ABG ABG results: 05/20/24 06:38 ABG pH 7.337 L ABG pCO2 38.8 ABG pO2 117.0 H ABG HCO3 20.8 L ABG O2 Saturation 98.9 ABG Base Excess -5.0 L Assessment and Plan Assessment and Plan (1) Acute respiratory distress: (2) Acute hypoxemic respiratory failure: (3) Acute exacerbation of chronic obstructive pulmonary disease: (4) Hypoxemia: (5) Coronary artery disease: Qualifiers: Coronary Disease-Associated Artery/Lesion type: [place] artery [place] vs. transplanted heart: [place] heart Associated angina: without angina Qualified Code(s): I25.10 - Atherosclerotic heart disease of [place] coronary artery without angina pectoris Plan Admission findings: Respiratory distress, acute hypoxia requiring BiPAP ventilation, mild hypotension secondary to acute exacerbation of COPD with lactic acidosis and mild neutropenia Acute hypoxic respiratory failure requiring BiPAP ventilation due to acute bronchitis causing acute exacerbation of COPD with lactic acidosis-aerosol treatments, steroids, IV antibiotics, flu are negative, maintain BiPAP ventilation Coronary artery disease-does have a mild elevation in her high-sensitivity troponin but this is probably her baseline. Will repeat labs again later this morning and early afternoon. Consider consultation to cardiology if increases significantly Generalized anxiety disorder-continue with her current medications History of chronic combined congestive heart failure-continue with current medications Hypothyroidism-continue with home medications GERD-continue with home medications Admission status: Patient with acute hypoxic respiratory failure requiring BiPAP ventilation, patient to be admitted to the intensive care unit. Medically necessary treatment will span 2 midnights. Inpatient status
[2024-05-20] MEDS: CEFTRIAXONE 1,000 MG in 0.9 % SODIUM CHLORIDE 50 ML 100 MG IV (08:10)
--- NOTE | 2024-05-20 08:11 | XR_ITS ---
The [address] [address] Patient Name: EMERY JETT MRN: [id number] date: 1960 Sex: F Assigned Patient Location: ER Current Patient Location: ICU Accession/Order Number: [id number] Exam Date: 05/20/2024 08:22 Report Date: 05/20/2024 08:51 At the request of: ЕКАТЕРИНА ROBERT Procedure: XR abdomen min 2V EXAMINATION: XR abdomen min 2V HISTORY: abd pain COMPARISON: No relevant comparison available. FINDINGS: BOWEL GAS PATTERN: Non-obstructed. Scattered small fluid levels within the bowel; no abnormal dilation. FREE AIR: None. CALCIFICATIONS: None significant. BONES: No fracture or visible bone lesion. OTHER: Negative. XR/XR abdomen min 2V IMPRESSION: 1. No bowel obstruction or acute abdominal findings. Electronically authenticated by: JOSY WEBER Date: 05/20/2024 08:51
[2024-05-20] MEDS: MORPHINE SULFATE 4 MG/ML VIAL IV (08:20)
--- NOTE | 2024-05-20 08:43 | RESP.RT ---
Transported patient to ICU on 4lpm NC. Bipap on standby
[2024-05-20 08:45] LABS: Troponin I High Sensitivity 58.3 pg/mL (4.0-51.3)
[2024-05-20] MEDS: AZITHROMYCIN 500 MG in 0.9 % SODIUM CHLORIDE 250 ML 250 MG IV (09:13)
[2024-05-20] MEDS: BUSPIRONE HCL 10 MG TABLET PO ×2 (09:17→20:04)
[2024-05-20] MEDS: LACTATED RINGER'S SOLUTION 1,000 ML 100 ML IV ×2 (09:17→19:11)
[2024-05-20] MEDS: ASPIRIN 81 MG TABLET.DR PO (09:17)
[2024-05-20] MEDS: CLOPIDOGREL BISULFATE 75 MG TABLET PO (09:17)
[2024-05-20] MEDS: CANAGLIFLOZIN 100 MG TABLET 300 MG PO (09:52)
[2024-05-20] MEDS: GABAPENTIN 300 MG CAPSULE 600 MG PO ×2 (09:52→20:04)
[2024-05-20] MEDS: CARVEDILOL 12.5 MG TABLET PO (09:53)
[2024-05-20] MEDS: ISOSORBIDE MONONITRATE 30 MG TAB.ER.24H PO (09:53)
[2024-05-20 10:28] LABS: Lactate/Lactic Acid 3.9 mmol/L (0.4-2.0)
[2024-05-20 11:58] LABS: Troponin I High Sensitivity 53.7 pg/mL (4.0-51.3)
[2024-05-20] MEDS: LEVOFLOXACIN IN DEXTROSE 5 % 750 MG/150 ML PREMIX 100 MG IV (12:02)
[2024-05-20] MEDS: ENSURE ORIGINAL 237 ML BOTTLE PO ×2 (12:03→20:06)
[2024-05-20] MEDS: TRAMADOL HCL 50 MG TABLET PO ×2 (16:10→21:40)
[2024-05-20] MEDS: BENZONATATE 100 MG CAPSULE 200 MG PO (20:04)
[2024-05-20] MEDS: ALPRAZOLAM 1 MG TABLET PO (20:05)
[2024-05-20] MEDS: CYCLOBENZAPRINE HCL 10 MG TABLET PO (20:05)
[2024-05-20] MEDS: TRAZODONE HCL 50 MG TABLET 100 MG PO (21:11)
[2024-05-20] MEDS: ATORVASTATIN CALCIUM 40 MG TABLET 80 MG PO (21:11)
[2024-05-21] VITALS (35 sets, daily range): BP systolic 101–127; BP diastolic 58–75; PULSE 70–114; TEMP 36.4–37.1; O2SAT 88–96
[2024-05-21] MEDS: METHYLPREDNISOLONE SOD SUCC PF 125 MG/2 ML VIAL IVP ×2 (00:40→05:01)
[2024-05-21] MEDS: IPRATROPIUM/ALBUTEROL SULFATE 3 ML AMPUL.NEB IH ×2 (04:30→10:00)
[2024-05-21] MEDS: LACTATED RINGER'S SOLUTION 1,000 ML 100 ML IV (04:55)
[2024-05-21] MEDS: LEVOTHYROXINE SODIUM 75 MCG TABLET PO (05:33)
[2024-05-21] MEDS: TRAMADOL HCL 50 MG TABLET PO (05:33)
[2024-05-21] MEDS: OMEPRAZOLE 40 MG CAPSULE.DR PO (05:33)
[2024-05-21 05:56] LABS: Hematocrit 31.8 % (36.0-48.0); Hemoglobin 10.1 g/dL (12.0-16.0); Mean Corpuscular HGB Conc 31.8 g/dL (29.9-35.2); Mean Corpuscular Hemoglobin 27.9 pg (26.7-34.0); Mean Corpuscular Volume 87.8 fL (81.0-99.0); Mean Platelet Volume 10.6 fL (9.5-13.5); Platelet Count 137 10^3/uL (150-450); Red Blood Count 3.62 10^6/uL (4.20-5.40); Red Cell Distribution Width 15.9 % (11.0-15.0); White Blood Count 11.6 10^3/uL (4.0-11.0)
[2024-05-21 06:28] LABS: Band Neutrophils Absolute 1.9 10^3/uL (0.0-0.3); Lymphocytes Absolute Manual 0.81 10^3/uL (1.20-3.80); Monocytes Absolute Manual 0.23 10^3/uL (0.30-0.80); Promyelocytes Absolute Manual 0.11; Segmented Neut Absolute Manual 8.58 10^3/uL (1.4-6.5); Toxic Granulation 2+; Toxic Vacuolation 3+
[2024-05-21 06:33] LABS: Anion Gap 10.6; BUN Creatinine Ratio 23.5; Calcium 9.6 mg/dL (8.5-10.1); Carbon Dioxide 28.8 mmol/L (21.0-32.0); Chloride 109 mmol/L (98-107); Estimated GFR (African America >60 (>=60 mL/min/1.73m^2); Estimated GFR (Non-African Ame >60 (>=60 mL/min/1.73m^2); Glucose 180 mg/dL (74-106); Potassium 4.4 mmol/L (3.5-5.1); Sodium 144 mmol/L (136-145); Troponin I High Sensitivity 31.1 pg/mL (4.0-51.3)
--- NOTE | 2024-05-21 07:41 | P.PN_ITS ---
Progress Note: Subjective Subjective Interval history: Patient states breathing is little bit better she did have some hypoxia overnight which may be sleep apnea contributing to her acute exacerbation of COPD Exam Constitutional Vital Signs, click to edit/add: Last Vital Signs Temp 98 F 05/21/24 03:49 Pulse 77 05/21/24 06:20 Resp 14 05/21/24 06:20 BP 101/65 05/21/24 04:55 Pulse Ox 89 L 05/21/24 05:51 O2 Del Method Nasal Cannula 05/21/24 04:30 O2 Flow Rate 2 05/21/24 04:55 FiO2 100 05/21/24 03:49 Documenting provider has reviewed patient's vital signs: yes Common normals: apparent distress (Mild respiratory distress) Respiratory Common normals: abnormal respiratory effort (Mild respiratory distress) Auscultation: rhonchi and wheezes Cardio Common normals: regular rate and regular rhythm GI Common normals: Normal to inspection, nondistended, normoactive bowel sounds present Progress Note: Objective Labs Labs: Short CBC 05/21/24 Range/Units 04:52 WBC 11.6 H (4.0-11.0) 10^3/uL Hgb 10.1 L (12.0-16.0) g/dL Hct 31.8 L (36.0-48.0) % Plt Count 137 L (150-450) 10^3/uL BMP 05/20/24 05/21/24 06:55 04:52 Sodium 141 144 Potassium 3.9 4.4 Chloride 106 109 H Carbon Dioxide 26.9 28.8 BUN 18.0 19.0 H Creatinine 1.03 H 0.81 Glucose 149 H 180 H Calcium 8.5 9.6 Liver Function 05/20/24 Range/Units 06:55 Total Bilirubin 0.5 (0.2-1.0) mg/dL AST 71 H (15-37) U/L ALT 45 (14-59) U/L Alkaline Phosphatase 90 (46-116) U/L Albumin 3.0 L (3.4-5.0) g/dL Progress Note: A&P Assessment and Plan (1) Acute respiratory distress: (2) Acute hypoxemic respiratory failure: (3) Acute exacerbation of chronic obstructive pulmonary disease: (4) Hypoxemia: (5) Coronary artery disease: Qualifiers: Associated angina: without angina Coronary Disease-Associated Artery/Lesion type: [place] artery [place] vs. transplanted heart: [place] heart Qualified Code(s): I25.10 - Atherosclerotic heart disease of [place] coronary artery without angina pectoris Plan Admission findings: Respiratory distress, bandemia, lactic acidosis, neutropenia on admission, now with significant elevated white blood cell count, elevated high-sensitivity troponin, acute hypoxia requiring BiPAP ventilation, mild hypotension secondary to acute exacerbation of COPD with lactic acidosis and mild neutropenia Acute hypoxic respiratory failure requiring BiPAP ventilation due to acute bronchitis causing acute exacerbation of COPD with lactic acidosis-overall improved, no longer requiring BiPAP, still requiring supplemental oxygen which she does not use at home, continue with current treatment plan, add theop hylline, she has been on this in the past with benefit Hyperglycemia-likely kpzaptm-dxfrzbz-ejrlftj sliding scale Coronary artery disease-does have a mild elevation in her high-returned to normal. Generalized anxiety disorder-cut back doses as she is having some hypoxia with oversedation History of chronic combined congestive heart failure-continue with current medications Hypothyroidism-continue with home medications GERD-continue with home medications Admission status: Patient with acute hypoxic respiratory failure requiring BiPAP ventilation, patient to be admitted to the intensive care unit. Medically necessary treatment will span 2 midnights. Inpatient status ?
[2024-05-21] MEDS: BUSPIRONE HCL 10 MG TABLET PO ×2 (08:25→20:34)
[2024-05-21] MEDS: ISOSORBIDE MONONITRATE 30 MG TAB.ER.24H PO (08:25)
[2024-05-21] MEDS: ENSURE ORIGINAL 237 ML BOTTLE PO ×2 (08:25→20:33)
[2024-05-21] MEDS: CARVEDILOL 12.5 MG TABLET PO ×2 (08:25→20:34)
[2024-05-21] MEDS: CLOPIDOGREL BISULFATE 75 MG TABLET PO (08:25)
[2024-05-21] MEDS: ASPIRIN 81 MG TABLET.DR PO (08:25)
[2024-05-21] MEDS: THEOPHYLLINE 300 MG TAB.ER.12H PO ×2 (08:25→20:34)
[2024-05-21] MEDS: INSULIN ASPART 300 UNIT/3 ML PEN SUBQ ×4 (08:26→22:34)
[2024-05-21] MEDS: CANAGLIFLOZIN 100 MG TABLET 300 MG PO (08:26)
[2024-05-21] MEDS: GABAPENTIN 300 MG CAPSULE 600 MG PO ×2 (08:26→20:34)
[2024-05-21] MEDS: SODIUM CHLORIDE 0.9% INHALATION 3 ML NEB 6 ML IH (10:03)
--- NOTE | 2024-05-21 10:45 | REH.PTDLY ---
Physical Therapy Daily Note PT Daily Note/Assess Start: 05/21/24 10:35 Freq: Status: Active Protocol: Document 05/21/24 10:36 AD (Rec: 05/21/24 10:45 AD [id number]) Physical Therapy Daily Note/Assessment Time In 09:48 Time Out 10:05 Subjective Pt asleep upon arrival, wakes up and is agreeable to therapy. Pt is tearful as she starts talking about a sheet metal worker maintenance at her apartment that comes and asks for money. When asked if pt gives him money she says yes, but never sees anything that he claims he is going to buy with the money. Pt states her son is aware of what is happening and tells her to stop giving him money, but pt is fearful of what my happen to her if she does not give him money. Therapeutic Activity 10 Minutes (minutes) Therapeutic Activity 1 Units Therapeutic Activity Pt ind with all transfers and bathroom transfers as Comments well. Pt ambulates with no AD 20 feet to and from restroom. Pt then ambulates [address] with no AD and no LOB noted. Pt sits up in chair post rx as she is waiting for her breakfast. Call light at hand. Total Therapy 10 Minutes Total Physical 1 Therapy Units Daily Note Summary Notified home health care social worker of pt's home situation as pt is very tearful over this during the therapy treatment. Pt able to ambulate 200 feet with no AD and no LOB noted. Pt is up adlib in her room. DC pt from PT at this time as pt's goals are met.
[2024-05-21 11:46] LABS: Glucometer 300 mg/dL (74-106)
[2024-05-21] MEDS: METHYLPREDNISOLONE SOD SUCC PF 125 MG/2 ML VIAL 60 MG IVP ×2 (12:03→17:07)
[2024-05-21] MEDS: LEVOFLOXACIN IN DEXTROSE 5 % 750 MG/150 ML PREMIX 100 MG IV (12:04)
--- NOTE | 2024-05-21 14:50 | SWNOTE1 ---
SW consulted in regards to food/nutrition. SW stopped in to speak with pt. Pt does get paid at the beginning of the month. At this time she does have money for food. Pt become emotional and crying in regards to her own safety at her home. She stated the maintenance kat keeps coming to her door and asking for money and is billing her for things that he did not do. SW suggested talking to her land lord. Pt's concern is that lc is close to the maintenance kat. She also does not have the [employer] number. SW then suggested calling the police and making a report. Pt may be agreeable to this plan and will think about it. Pt voiced she is just having a bad day. Pt voiced her anxiety and panicking is making her not feel well. SW suggested to take today to rest and let her body recover and SW and pt will figure out a plan tomorrow. Pt then voiced she does have a friend that may have the [employer] number. SW did ask if her son has said anything to the maintenance kat? She stated he did take him outside and told him not to speak to his mother like that. SW also asked if her and son have looked in to other housing? She stated they have not. SW suggested that pt and SW will look online if they can find any other apartments for rent in [place]. She does not want to go to low income housing as she has before and it is not very nice. SW to stop back in tomorrow to determine the plan in regards to the general maintenance technician. Pt did ask about her medications? SW to ask nurse. SW asked nurse and pt will get evening meds. SW let pt know.
--- NOTE | 2024-05-21 14:57 | SWNOTE1 ---
Important Message from Medicare reviewed and discussed with patient. Pt. verbalized understanding and signed the form. Original given to patient and copy placed in patient?s chart.
[2024-05-21 16:17] LABS: Glucometer 179 mg/dL (74-106)
[2024-05-21] MEDS: HYOSCYAMINE SULFATE 0.125 MG TAB.SUBL SL (16:32)
[2024-05-21] MEDS: ALPRAZOLAM 0.5 MG TABLET PO (20:33)
[2024-05-21 20:55] LABS: Glucometer 205 mg/dL (74-106)
[2024-05-21 22:07] LABS: Glucometer 218 mg/dL (74-106)
[2024-05-21] MEDS: TRAZODONE HCL 50 MG TABLET PO (22:33)
[2024-05-21] MEDS: ATORVASTATIN CALCIUM 40 MG TABLET 80 MG PO (22:33)
[2024-05-21] MEDS: ONDANSETRON PF 4 MG/2 ML VIAL IV (22:41)
[2024-05-22] VITALS (19 sets, daily range): BP systolic 107–137; BP diastolic 65–85; PULSE 76–98; TEMP 36.5–36.8; O2SAT 89–92
[2024-05-22] MEDS: METHYLPREDNISOLONE SOD SUCC PF 125 MG/2 ML VIAL 60 MG IVP ×4 (00:11→21:03)
[2024-05-22 05:27] LABS: Hematocrit 31.8 % (36.0-48.0); Hemoglobin 9.9 g/dL (12.0-16.0); Mean Corpuscular HGB Conc 31.1 g/dL (29.9-35.2); Mean Corpuscular Volume 86.9 fL (81.0-99.0); Mean Platelet Volume 11.1 fL (9.5-13.5); Platelet Count 141 10^3/uL (150-450); Red Blood Count 3.66 10^6/uL (4.20-5.40); White Blood Count 13.6 10^3/uL (4.0-11.0)
[2024-05-22] MEDS: LEVOTHYROXINE SODIUM 75 MCG TABLET PO (05:38)
[2024-05-22] MEDS: OMEPRAZOLE 40 MG CAPSULE.DR PO (05:38)
[2024-05-22 05:40] LABS: Theophylline 11.1 ug/mL (10.0-20.0)
[2024-05-22 05:44] LABS: Anion Gap 10.9; BUN Creatinine Ratio 23.8; Calcium 9.9 mg/dL (8.5-10.1); Carbon Dioxide 31.4 mmol/L (21.0-32.0); Chloride 104 mmol/L (98-107); Estimated GFR (African America >60 (>=60 mL/min/1.73m^2); Estimated GFR (Non-African Ame >60 (>=60 mL/min/1.73m^2); Glucose 156 mg/dL (74-106); Potassium 4.3 mmol/L (3.5-5.1); Sodium 142 mmol/L (136-145); Troponin I High Sensitivity 24.1 pg/mL (4.0-51.3)
[2024-05-22 06:43] LABS: Band Neutrophils Absolute 0.3 10^3/uL (0.0-0.3); Lymphocytes Absolute Manual 0.68 10^3/uL (1.20-3.80); Segmented Neut Absolute Manual 12.24 10^3/uL (1.4-6.5)
--- NOTE | 2024-05-22 07:59 | P.PN_ITS ---
Progress Note: Subjective Subjective Interval history: Patient looks better today, more comfortable with her breathing, but still on supplemental oxygen, she does not wear supplemental oxygen at home Exam Constitutional Vital Signs, click to edit/add: Last Vital Signs Temp 97.9 F 05/22/24 04:41 Pulse 97 H 05/22/24 06:00 Resp 18 05/22/24 04:41 BP 114/75 05/22/24 04:41 Pulse Ox 89 L 05/22/24 04:41 O2 Del Method Nasal Cannula 05/22/24 04:41 O2 Flow Rate 1 05/22/24 04:41 FiO2 100 05/21/24 20:00 Documenting provider has reviewed patient's vital signs: yes Common normals: apparent distress (Mild respiratory distress) Respiratory Common normals: abnormal respiratory effort (minimal respiratory distress) Auscultation: rhonchi, wheezes and diminished lung sounds Cardio Common normals: regular rate and regular rhythm GI Common normals: Normal to inspection, nondistended, normoactive bowel sounds present Progress Note: Objective Labs Labs: Short CBC 05/22/24 Range/Units 05:09 WBC 13.6 H (4.0-11.0) 10^3/uL Hgb 9.9 L (12.0-16.0) g/dL Hct 31.8 L (36.0-48.0) % Plt Count 141 L (150-450) 10^3/uL BMP 05/22/24 05:09 Sodium 142 Potassium 4.3 Chloride 104 Carbon Dioxide 31.4 BUN 20.0 H Creatinine 0.84 Glucose 156 H Calcium 9.9 Progress Note: A&P Assessment and Plan (1) Acute respiratory distress: (2) Acute hypoxemic respiratory failure: (3) Acute exacerbation of chronic obstructive pulmonary disease: (4) Hypoxemia: (5) Coronary artery disease: Qualifiers: Coronary Disease-Associated Artery/Lesion type: [place] artery [place] vs. transplanted heart: [place] heart Associated angina: without angina Qualified Code(s): I25.10 - Atherosclerotic heart disease of [place] coronary artery without angina pectoris Plan Admission findings: Respiratory distress, bandemia, lactic acidosis, neutropenia on admission, now with significant elevated white blood cell count with left shift consistent with bacterial process, elevated high-sensitivity troponin, acute hypoxia requiring BiPAP ventilation, mild hypotension secondary to acute exacerbation of COPD with lactic acidosis and mild neutropenia due to right middle and right lower lobe pneumonia Acute hypoxic respiratory failure requiring BiPAP ventilation due to acute right middle and right lower lobe pneumonia causing acute exacerbation of COPD with lactic acidosis-continues to improve is still requiring supplemental oxygen which she does not wear at home, will decrease her steroid dose today, see how patient does with ambulation, possible discharge tomorrow if can remain off of supplemental oxygen overnight Hyperglycemia-likely bpxezst-wmvcyby-mhrvhit sliding scale-stable Thrombocytopenia-related to the infection as outlined above, slightly improved today Iron deficiency anemia-Down slightly today Coronary artery disease-does have a mild elevation in her high-returned to normal. Generalized anxiety disorder-cut back doses as she is having some hypoxia with oversedation History of chronic combined congestive heart failure-continue with current medications Hypothyroidism-continue with home medications GERD-continue with home medications Admission status: Patient with acute hypoxic respiratory failure requiring BiPAP ventilation, patient to be admitted to the intensive care unit. Medically necessary treatment will span 2 midnights. Inpatient status, possible discharge tomorrow if can wean off of supplemental oxygen during the day today and remained stable ?
[2024-05-22] MEDS: CARVEDILOL 12.5 MG TABLET PO ×2 (09:24→21:04)
[2024-05-22] MEDS: CANAGLIFLOZIN 100 MG TABLET 300 MG PO (09:24)
[2024-05-22] MEDS: ENSURE ORIGINAL 237 ML BOTTLE PO ×2 (09:24→21:04)
[2024-05-22] MEDS: GABAPENTIN 300 MG CAPSULE 600 MG PO ×2 (09:25→21:03)
[2024-05-22] MEDS: CLOPIDOGREL BISULFATE 75 MG TABLET PO (09:25)
[2024-05-22] MEDS: BUSPIRONE HCL 10 MG TABLET PO ×2 (09:25→21:04)
[2024-05-22] MEDS: SUCRALFATE 1 GM TABLET PO ×4 (09:25→21:03)
[2024-05-22] MEDS: ISOSORBIDE MONONITRATE 30 MG TAB.ER.24H PO (09:25)
[2024-05-22] MEDS: ASPIRIN 81 MG TABLET.DR PO (09:25)
[2024-05-22] MEDS: ALPRAZOLAM 0.5 MG TABLET PO ×2 (09:25→21:04)
[2024-05-22] MEDS: THEOPHYLLINE 300 MG TAB.ER.12H PO ×2 (09:25→21:09)
[2024-05-22 11:47] LABS: Glucometer 326 mg/dL (74-106)
[2024-05-22] MEDS: INSULIN ASPART 300 UNIT/3 ML PEN SUBQ ×3 (11:47→21:09)
[2024-05-22] MEDS: LEVOFLOXACIN IN DEXTROSE 5 % 750 MG/150 ML PREMIX 100 MG IV (11:48)
[2024-05-22] MEDS: IPRATROPIUM/ALBUTEROL SULFATE 3 ML AMPUL.NEB IH ×2 (11:49→16:30)
--- NOTE | 2024-05-22 14:49 | SWNOTE1 ---
SW stopped in to see patient, pt lights were off and pt was sleeping. SW to check back tomorrow.
[2024-05-22 16:03] LABS: Glucometer 181 mg/dL (74-106)
[2024-05-22 20:57] LABS: Glucometer 155 mg/dL (74-106)
[2024-05-22] MEDS: ATORVASTATIN CALCIUM 40 MG TABLET 80 MG PO (21:03)
[2024-05-22] MEDS: TRAZODONE HCL 50 MG TABLET PO (21:03)
[2024-05-22] MEDS: TRAMADOL HCL 50 MG TABLET PO (21:04)
[2024-05-23] VITALS (24 sets, daily range): BP systolic 95–126; BP diastolic 68–83; PULSE 78–96; TEMP 36.5–36.8; O2SAT 84–93
[2024-05-23 05:04] LABS: Basophils Percent Auto 0.1 % (0.2-2.0); Hematocrit 31.2 % (36.0-48.0); Hemoglobin 10.1 g/dL (12.0-16.0); Immature Granulocytes Abs Auto 0.14 10^3/uL (0.00-0.03); Immature Granulocytes Pct Auto 1.3 % (0.0-0.5); Lymphocytes Absolute Auto 0.8 10^3/uL (1.2-3.8); Lymphocytes Percent Auto 7.4 % (20.5-60.0); Mean Corpuscular HGB Conc 32.4 g/dL (29.9-35.2); Mean Corpuscular Volume 86.4 fL (81.0-99.0); Mean Platelet Volume 10.5 fL (9.5-13.5); Monocytes Absolute Auto 0.2 10^3/uL (0.3-0.8); Monocytes Percent Auto 2.2 % (1.7-12.0); Neutrophils Absolute Auto 9.4 10^3/uL (1.4-6.5); Platelet Count 176 10^3/uL (150-450); Red Blood Count 3.61 10^6/uL (4.20-5.40); Red Cell Distribution Width 15.7 % (11.0-15.0); White Blood Count 10.6 10^3/uL (4.0-11.0)
[2024-05-23 05:25] LABS: Anion Gap 9.8; BUN Creatinine Ratio 27.2; Calcium 9.4 mg/dL (8.5-10.1); Carbon Dioxide 32.2 mmol/L (21.0-32.0); Chloride 103 mmol/L (98-107); Estimated GFR (African America >60 (>=60 mL/min/1.73m^2); Estimated GFR (Non-African Ame >60 (>=60 mL/min/1.73m^2); Glucose 210 mg/dL (74-106); Sodium 141 mmol/L (136-145)
[2024-05-23 05:28] LABS: Theophylline 16.7 ug/mL (10.0-20.0)
[2024-05-23] MEDS: SUCRALFATE 1 GM TABLET PO ×4 (06:43→21:21)
[2024-05-23] MEDS: LEVOTHYROXINE SODIUM 75 MCG TABLET PO (06:43)
[2024-05-23] MEDS: OMEPRAZOLE 40 MG CAPSULE.DR PO (06:43)
[2024-05-23] MEDS: METHYLPREDNISOLONE SOD SUCC PF 125 MG/2 ML VIAL 60 MG IVP (06:43)
--- NOTE | 2024-05-23 08:12 | P.PN_ITS ---
Progress Note: Subjective Subjective Interval history: When I saw patient up in the medical surgical floor, she awakened easily, no complaints, no cough throughout the evaluation Exam Constitutional Vital Signs, click to edit/add: Last Vital Signs Temp 97.7 F 05/23/24 07:55 Pulse 95 H 05/23/24 07:55 Resp 18 05/23/24 08:07 BP 126/83 05/23/24 07:55 Pulse Ox 91 L 05/23/24 08:07 O2 Del Method Nasal Cannula 05/23/24 08:07 O2 Flow Rate 2 05/23/24 08:07 FiO2 100 05/21/24 20:00 Documenting provider has reviewed patient's vital signs: yes Common normals: no apparent distress HENMT Common normals: normocephalic Chest Common normals: inspection of chest normal and palpation of chest normal Respiratory Common normals: normal respiratory effort and no retractions Auscultation: rhonchi (Minimal) Cardio Common normals: regular rate and regular rhythm Progress Note: Objective Labs Labs: Short CBC 05/23/24 Range/Units 04:38 WBC 10.6 (4.0-11.0) 10^3/uL Hgb 10.1 L (12.0-16.0) g/dL Hct 31.2 L (36.0-48.0) % Plt Count 176 (150-450) 10^3/uL BMP 05/23/24 04:38 Sodium 141 Potassium 4.0 Chloride 103 Carbon Dioxide 32.2 H BUN 25.0 H Creatinine 0.92 Glucose 210 H Calcium 9.4 Progress Note: A&P Assessment and Plan (1) Acute respiratory distress: (2) Acute hypoxemic respiratory failure: (3) Acute exacerbation of chronic obstructive pulmonary disease: (4) Hypoxemia: (5) Coronary artery disease: Qualifiers: Associated angina: without angina Coronary Disease-Associated Artery/Lesion type: [place] artery [place] vs. transplanted heart: [place] heart Qualified Code(s): I25.10 - Atherosclerotic heart disease of [place] coronary artery without angina pectoris Plan Admission findings: Respiratory distress, bandemia, lactic acidosis, neutropenia on admission, now with significant elevated white blood cell count with left griselda ft consistent with bacterial process, elevated high-sensitivity troponin, acute hypoxia requiring BiPAP ventilation, mild hypotension secondary to acute exacerbation of COPD with lactic acidosis and mild neutropenia due to right middle and right lower lobe pneumonia Acute hypoxic respiratory failure requiring BiPAP ventilation due to acute right middle and right lower lobe pneumonia causing acute exacerbation of COPD with lactic acidosis-patient was much improved overnight, not requiring supplemental oxygen from yesterday afternoon through the night, was getting ready to discharge patient, received a phone call from nurse that O2 sat 82% on room air, have patient take deep breathing and check multiple fingers and still 82%, getting stat ABG and stat CTA of chest Hyperglycemia-likely steroid--stable Thrombocytopenia-resolved Iron deficiency anemia-Down slightly today Coronary artery disease-does have a mild elevation in her hst-returned to normal. Generalized anxiety disorder-cut back doses as she is having some hypoxia with oversedation History of chronic combined congestive heart failure-continue with current medications Hypothyroidism-continue with home medications GERD-continue with home medications Admission status: Patient with acute hypoxic respiratory failure requiring BiPAP ventilation, patient to be admitted to the intensive care unit. Medically necessary treatment will span 2 midnights. Inpatient status, possible discharge tomorrow if can wean off of supplemental oxygen during the day today and remained stable ?
--- NOTE | 2024-05-23 08:12 | CT_ITS ---
[address] [address] Patient Name: EMERY JTET MRN: [id number] date: 1960 Sex: F Assigned Patient Location: [place] Current Patient Location: [place] Accession/Order Number: [id number] Exam Date: 05/23/2024 09:30 Report Date: 05/23/2024 10:17 At the request of: ЕКАТЕРИНА ROBERT Procedure: CT angio chest EXAMINATION: CT angio chest HISTORY: acute hypoxia COMPARISON: CTA chest 08/21/2023 TECHNIQUE: Multi-planar CT images were created with IV contrast. Axial, Coronal, and Sagittal images. Dose reduction techniques were achieved by using automated exposure control and/or adjustment of mA and/or kV according to patient size and/or use of iterative reconstruction technique. 3-D reconstruction was performed on a separate workstation. FINDINGS: VASCULATURE: No pulmonary embolism or abnormal opacity. LUNGS: Irregular patchy and confluent opacities within right upper and lower lobes suspected represent pneumonia. No abnormal bronchial dilation or obstruction. PLEURA: No mass, effusion, or pneumothorax. ALY: No mass or adenopathy. MEDIASTINUM: No mass or adenopathy. CARDIAC: No enlargement, pericardial effusion, or pericardial thickening. AORTA: No aneurysm or dissection. CHEST WALL: No mass or axillary adenopathy. BONES: Mild osteonecrosis of the humeral heads, right greater than left. LIMITED ABDOMEN: No suspicious findings. Limited images of the upper abdomen. OTHER: Negative. CT/CT angio chest IMPRESSION: 1. No pulmonary embolism. 2. Multifocal, moderate right pulmonary infiltrates suggestive of pneumonia. 3. Mild osteonecrosis of the humeral heads. Electronically authenticated by: JOSY WEBER Date: 05/23/2024 10:17
[2024-05-23] MEDS: BUSPIRONE HCL 10 MG TABLET PO ×2 (08:18→21:21)
[2024-05-23] MEDS: GABAPENTIN 300 MG CAPSULE 600 MG PO ×2 (08:18→21:20)
[2024-05-23] MEDS: CANAGLIFLOZIN 100 MG TABLET 300 MG PO (08:18)
[2024-05-23] MEDS: THEOPHYLLINE 300 MG TAB.ER.12H PO ×2 (08:18→21:24)
[2024-05-23] MEDS: ISOSORBIDE MONONITRATE 30 MG TAB.ER.24H PO (08:18)
[2024-05-23] MEDS: CARVEDILOL 12.5 MG TABLET PO ×2 (08:18→21:19)
[2024-05-23] MEDS: ENSURE ORIGINAL 237 ML BOTTLE PO ×2 (08:18→21:19)
[2024-05-23] MEDS: CLOPIDOGREL BISULFATE 75 MG TABLET PO (08:18)
[2024-05-23] MEDS: ASPIRIN 81 MG TABLET.DR PO (08:18)
[2024-05-23] MEDS: TRAMADOL HCL 50 MG TABLET PO ×2 (08:18→21:19)
[2024-05-23] MEDS: ALPRAZOLAM 0.5 MG TABLET PO ×3 (08:18→21:20)
[2024-05-23] MEDS: INSULIN ASPART 300 UNIT/3 ML PEN SUBQ ×4 (08:19→21:23)
--- NOTE | 2024-05-23 08:34 | CM.NOTE ---
2nd Important Message From Medicare discussed with pt, pt denies any questions or concerns.
[2024-05-23 10:27] LABS: ABG PCO2 43.3 mmHg (35.0-45.0); Allen Test POSITIVE (POSITIVE); Base Excess ABG 6.6 mmol/L (-2.0-2.0); HCO3 ABG 30.5 mmol/L (22.0-26.0); O2 Mode ROOM AIR; Oxygen Saturation ABG 90.8 %; pH ABG 7.456 (7.350-7.450)
[2024-05-23 10:30] LABS: PO2 ABG 58.1 mmHg (80.0-100.0)
[2024-05-23] MEDS: IPRATROPIUM/ALBUTEROL SULFATE 3 ML AMPUL.NEB IH ×3 (10:44→22:51)
[2024-05-23 11:22] LABS: Glucometer 369 mg/dL (74-106)
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
[2024-05-23] MEDS: LEVOFLOXACIN IN DEXTROSE 5 % 750 MG/150 ML PREMIX 150 MG IV (12:09)
[2024-05-23] MEDS: ACETAMINOPHEN 500 MG TABLET 1000 MG PO (12:10)
--- NOTE | 2024-05-23 13:35 | SWNOTE1 ---
Case management did follow up with pt in regards to living situation, please see managed care analyst note.
[2024-05-23] MEDS: PREDNISONE 20 MG TABLET 40 MG PO (13:45)
[2024-05-23] MEDS: AMOXICILLIN/POT CLAV 875-125 MG TABLET 1 TAB PO ×2 (13:45→21:19)
[2024-05-23] MEDS: AMOXICILLIN 500 MG CAPSULE 1000 MG PO ×2 (14:27→21:21)
[2024-05-23 15:47] LABS: Glucometer 347 mg/dL (74-106)
--- NOTE | 2024-05-23 16:35 | P.PN_ITS ---
Progress Note: Subjective Subjective Interval history: Late addendum - pt with inc CASANOVA and hypoxia with activity Exam Narrative Exam Narrative: See PE earlier in the day Constitutional Vital Signs, click to edit/add: Last Vital Signs Temp 98.1 F 05/23/24 15:27 Pulse 93 H 05/23/24 16:09 Resp 18 05/23/24 15:27 BP 116/71 05/23/24 15:27 Pulse Ox 91 L 05/23/24 16:09 O2 Del Method Room Air 05/23/24 16:09 O2 Flow Rate 2 05/23/24 10:45 FiO2 100 05/21/24 20:00 Progress Note: Objective Labs Labs: Short CBC 05/23/24 Range/Units 04:38 WBC 10.6 (4.0-11.0) 10^3/uL Hgb 10.1 L (12.0-16.0) g/dL Hct 31.2 L (36.0-48.0) % Plt Count 176 (150-450) 10^3/uL BMP 05/23/24 04:38 Sodium 141 Potassium 4.0 Chloride 103 Carbon Dioxide 32.2 H BUN 25.0 H Creatinine 0.92 Glucose 210 H Calcium 9.4 Progress Note: A&P Assessment and Plan (1) Acute respiratory distress: (2) Acute hypoxemic respiratory failure: (3) Acute exacerbation of chronic obstructive pulmonary disease: (4) Hypoxemia: (5) Coronary artery disease: Qualifiers: Coronary Disease-Associated Artery/Lesion type: [place] artery [place] vs. transplanted heart: [place] heart Associated angina: without angina Qualified Code(s): I25.10 - Atherosclerotic heart disease of [place] coronary artery without angina pectoris (6) Chest pain: (7) Anxiety: (8) Acute exacerbation of chronic obstructive pulmonary disease (COPD): (9) Hypothyroid: Qualifiers: Hypothyroidism type: unspecified Qualified Code(s): E03.9 - Hypothyroidism, unspecified (10) HLD (hyperlipidemia): Qualifiers: Hyperlipidemia type: unspecified Qualified Code(s): E78.5 - Hyperlipidemia, unspecified (11) Elevated troponin: (12) Pneumonia: (13) Iron deficiency anemia: (14) Hypertension: Qualifiers: Hypertension type: primary hypertension Qualified Code(s): I10 - Essential (primary) hypertension (15) Steroid-induced hyperglycemia: (16) Thrombocytopenia: (17) Chronic combined systolic (congestive) and diastolic (congestive) heart failure: (18) IBS (irritable bowel syndrome): (19) GERD (gastroesophageal reflux disease): Plan Admission findings: Respiratory distress, bandemia, lactic acidosis, neutropenia on admission, now with significant elevated white blood cell count with left shift consistent with bacterial process, elevated high-sensitivity troponin, acute hypoxia requiring BiPAP ventilation, mild hypotension secondary to acute exacerbation of COPD with lactic acidosis and mild neutropenia due to right middle and right lower lobe pneumonia Acute hypoxic respiratory failure requiring BiPAP ventilation due to acute right middle and right lower lobe pneumonia causing acute exacerbation of COPD with l actic acidosis-patient was much improved overnight, not requiring supplemental oxygen from yesterday afternoon through the night, was getting ready to discharge patient, received a phone call from nurse that O2 sat 82% on room air, have patient take deep breathing and check multiple fingers and still 82%, CTA just with the pneumonia, abg with hypoxemia but likely chronic - changing to oral meds today - possible discharge tomorrow Hyperglycemia-likely steroid--stable Thrombocytopenia-resolved Iron deficiency anemia-Down slightly today Coronary artery disease-does have a mild elevation in her hst-returned to normal. Generalized anxiety disorder-cut back doses as she is having some hypoxia with oversedation History of chronic combined congestive heart failure-continue with current medications Hypothyroidism-continue with home medications GERD-continue with home medications Admission status: Patient with acute hypoxic respiratory failure requiring BiPAP ventilation, patient to be admitted to the intensive care unit. Medically necessary treatment will span 2 midnights. Inpatient status, possible discharge tomorrow if can wean off of supplemental oxygen during the day today and remained stable
[2024-05-23 21:19] LABS: Glucometer 151 mg/dL (74-106)
[2024-05-23] MEDS: ATORVASTATIN CALCIUM 40 MG TABLET 80 MG PO (21:19)
[2024-05-23] MEDS: TRAZODONE HCL 50 MG TABLET PO (21:21)
[2024-05-24] VITALS (9 sets, daily range): BP systolic 100–148; BP diastolic 63–93; PULSE 69–99; TEMP 36.5–36.7; O2SAT 90–92
[2024-05-24] MEDS: IPRATROPIUM/ALBUTEROL SULFATE 3 ML AMPUL.NEB IH (04:12)
[2024-05-24] MEDS: OMEPRAZOLE 40 MG CAPSULE.DR PO (05:53)
[2024-05-24] MEDS: LEVOTHYROXINE SODIUM 75 MCG TABLET PO (05:53)
[2024-05-24 07:05] LABS: Basophils Percent Auto 0.1 % (0.2-2.0); Hematocrit 30.6 % (36.0-48.0); Hemoglobin 9.9 g/dL (12.0-16.0); Immature Granulocytes Abs Auto 0.04 10^3/uL (0.00-0.03); Immature Granulocytes Pct Auto 0.4 % (0.0-0.5); Lymphocytes Absolute Auto 1.5 10^3/uL (1.2-3.8); Lymphocytes Percent Auto 14.3 % (20.5-60.0); Mean Corpuscular HGB Conc 32.4 g/dL (29.9-35.2); Mean Corpuscular Hemoglobin 27.8 pg (26.7-34.0); Monocytes Absolute Auto 0.5 10^3/uL (0.3-0.8); Monocytes Percent Auto 4.7 % (1.7-12.0); Neutrophils Absolute Auto 8.4 10^3/uL (1.4-6.5); Neutrophils Percent Auto 80.5 % (43.0-75.0); Platelet Count 188 10^3/uL (150-450); Red Blood Count 3.56 10^6/uL (4.20-5.40); Red Cell Distribution Width 15.6 % (11.0-15.0); White Blood Count 10.5 10^3/uL (4.0-11.0)
[2024-05-24 07:24] LABS: Alanine Aminotransferase 26 U/L (14-59); Alkaline Phosphatase 71 U/L (46-116); Anion Gap 7.7; Aspartate Amino Transferase 12 U/L (15-37); BUN Creatinine Ratio 33.3; Bilirubin Total 0.2 mg/dL (0.2-1.0); Carbon Dioxide 34.1 mmol/L (21.0-32.0); Chloride 104 mmol/L (98-107); Estimated GFR (African America >60 (>=60 mL/min/1.73m^2); Estimated GFR (Non-African Ame >60 (>=60 mL/min/1.73m^2); Glucose 132 mg/dL (74-106); Potassium 3.8 mmol/L (3.5-5.1); Sodium 142 mmol/L (136-145); Total Protein 5.3 g/dL (6.4-8.2)
[2024-05-24] MEDS: CANAGLIFLOZIN 100 MG TABLET 300 MG PO (08:34)
[2024-05-24] MEDS: CARVEDILOL 12.5 MG TABLET PO (08:34)
[2024-05-24] MEDS: AMOXICILLIN 500 MG CAPSULE 1000 MG PO (08:34)
[2024-05-24] MEDS: BUSPIRONE HCL 10 MG TABLET PO (08:35)
[2024-05-24] MEDS: BENZONATATE 100 MG CAPSULE 200 MG PO (08:35)
[2024-05-24] MEDS: PREDNISONE 20 MG TABLET 40 MG PO (08:35)
[2024-05-24] MEDS: CLOPIDOGREL BISULFATE 75 MG TABLET PO (08:35)
[2024-05-24] MEDS: ENSURE ORIGINAL 237 ML BOTTLE PO (08:35)
[2024-05-24] MEDS: SUCRALFATE 1 GM TABLET PO (08:35)
[2024-05-24] MEDS: ISOSORBIDE MONONITRATE 30 MG TAB.ER.24H PO (08:35)
[2024-05-24] MEDS: GABAPENTIN 300 MG CAPSULE 600 MG PO (08:35)
[2024-05-24] MEDS: TRAMADOL HCL 50 MG TABLET PO (08:35)
[2024-05-24] MEDS: AMOXICILLIN/POT CLAV 875-125 MG TABLET 1 TAB PO (08:35)
[2024-05-24] MEDS: ASPIRIN 81 MG TABLET.DR PO (08:35)
[2024-05-24] MEDS: ALPRAZOLAM 0.5 MG TABLET PO (08:35)
[2024-05-24] MEDS: THEOPHYLLINE 300 MG TAB.ER.12H PO (08:42)
--- NOTE | 2024-05-24 08:43 | P.DS_ITS ---
DS: Providers Provider Date of admission: 05/20/24 08:33 Primary care physician: Charlie Richardson MD Admitting clinician: Charlie Richardson Consults: 05/20/24 Consult to Dishwashing Machine Operator Routine Reason for consult:: Food/Nutrition 05/20/24 08:03 Consult to Pharmacy Routine Consulting Provider: Reason for consultation: Please Barry me when Med Rec is Updated Has provider been notified: No Occupational Therapy Eval and Treat Routine Reason for consultation: Only if needed for Rehab Has provider been notified: No Physical Therapy Eval and Treat Routine Reason for consultation: Eval and Treat Has provider been notified: No Discharging clinician: Baylee Hernández DS: Diagnosis Discharge Diagnosis (1) Acute respiratory distress: (2) Acute hypoxemic respiratory failure: (3) Acute exacerbation of chronic obstructive pulmonary disease: (4) Hypoxemia: (5) Coronary artery disease: Qualifiers: Associated angina: without angina Coronary Disease-Associated Artery/Lesion type: [place] artery [place] vs. transplanted heart: [place]ona heart Qualified Code(s): I25.10 - Atherosclerotic heart disease of [place] coronary art carole without angina pectoris (6) Chest pain: (7) Anxiety: (8) Hypothyroid: Qualifiers: Hypothyroidism type: unspecified Qualified Code(s): E03.9 - Hypothyroidism, unspecified (9) HLD (hyperlipidemia): Qualifiers: Hyperlipidemia type: unspecified Qualified Code(s): E78.5 - Hyperlipidemia, unspecified (10) Elevated troponin: (11) Pneumonia: (12) Iron deficiency anemia: (13) Hypertension: Qualifiers: Hypertension type: primary hypertension Qualified Code(s): I10 - Essential (primary) hypertension (14) Steroid-induced hyperglycemia: (15) Thrombocytopenia: (16) Chronic combined systolic (congestive) and diastolic (congestive) heart failure: (17) IBS (irritable bowel syndrome): (18) GERD (gastroesophageal reflux disease): DS: Summary Hospital Course Hospital Course: Patient admitted to the hospital on 05/20/24 with increasing cough and shortness of breath, found to have acute hypoxia in ER requiring BiPAP ventilation. Patient initially with Acute hypoxic respiratory failure requiring BiPAP ventilation due to acute bronchitis causing acute exacerbation of COPD with lactic acidosis-received aerosol treatments, steroids, IV antibiotics, flu and Covid was negative. Patient found to have right sided pulmonary infiltrates on CTA without evidence of PE. Blood cultures negative. Patient transitioned from BIPAP to NC oxygen and yesterday to room air. She has maintained oxygen sats on room air. She also initially had elevated troponin which trended to normal. Most likely NSTEMI type 2 from her acute respiratory failure. Cardiology was not consulted and echo was not performed. She showed no EKG changes that were reported. She takes plavix, and nitro at home. No chest pain at the time of discharge. She will resume her home medications with addition of Tessalon to use as needed for cough, prednisone 40mg X 7 days and Augmentin 875/125mg BID x 7 days. I have not discharged her on Theophylline with acute exacerbation. She has close follow up with Dr. Richardson who can decide to continue this for chronic issues. She may return to the ER with any worsening signs or symptoms. Status at Discharge Functional status at discharge: independent ambulation Overall status at discharge: patient is back to baseline Time Spent with Patient Time attestation: Total time spent providing and/or coordinating discharge services: Time spent: greater than 30 minutes Exam Narrative Exam Narrative: General: Patient is alert, and oriented to person, place and time with normal affect, proper hygiene Skin: no visible rashes, or ulcers Head: atraumatic, acephalic Eyes: PERRLA, no nystagmus present, conjunctiva clear, no scleral icterus Ears: normal gross auditory acuity Heart: Normal rate and rhythm, no murmurs/rubs/gallops Lungs: no audible wheezes, crackles and normal breath sounds all lung esquivel Abdomen: Normal audible bowel sounds, no distension, No palpable masses, no organomegaly, no rebound/guarding/ or rigidity Musculoskeletal: no swelling bilateral lower extremities Neuro: CN II-X grossly intact Constitutional Vital Signs, click to edit/add: Last Vital Signs Temp 97.7 F 05/24/24 07:32 Pulse 86 05/24/24 08:00 Resp 18 05/24/24 07:32 BP 148/86 H 05/24/24 07:32 Pulse Ox 92 L 05/24/24 07:32 O2 Del Method Room Air 05/24/24 07:32 O2 Flow Rate 2 05/23/24 10:45 FiO2 100 05/21/24 20:00 DS: Data Data Completed and Pending Labs on day of discharge: Labs from last 24 hours 05/24/24 05/23/24 05/23/24 07:00 21:18 15:46 WBC 10.5 RBC 3.56 L Hgb 9.9 L Hct 30.6 L MCV 86.0 MCH 27.8 MCHC 32.4 RDW 15.6 H Plt Count 188 MPV 10.0 Neut % (Auto) 80.5 H Lymph % (Auto) 14.3 L [place] % (Auto) 4.7 Eos % (Auto) 0.0 L Baso % (Auto) 0.1 L Neut # (Auto) 8.4 H Lymph # (Auto) 1.5 [place] # (Auto) 0.5 Eos # (Auto) 0.0 Baso # (Auto) 0.0 Abs Immat Gran (auto) 0.04 H Imm/Tot Granulo (auto) 0.4 ABG pH ABG pCO2 ABG pO2 ABG HCO3 ABG O2 Saturation ABG Base Excess [place]rell Test Sodium 142 Potassium 3.8 Chloride 104 Carbon Dioxide 34.1 H Anion Gap 7.7 BUN 28.0 H Creatinine 0.84 Est GFR ( Amer) >60 Est GFR (Non-Af Amer) >60 BUN/Creatinine Ratio 33.3 Glucose 132 H Calcium 9.0 Total Bilirubin 0.2 AST 12 L ALT 26 Alkaline Phosphatase 71 Total Protein 5.3 L POC Glucose 151 H 347 H 05/23/24 05/23/24 11:20 10:17 WBC RBC Hgb Hct MCV MCH MCHC RDW Plt Count MPV Neut % (Auto) Lymph % (Auto) [place] % (Auto) Eos % (Auto) Baso % (Auto) Neut # (Auto) Lymph # (Auto) [place] # (Auto) Eos # (Auto) Baso # (Auto) Abs Immat Gran (auto) Imm/Tot Granulo (auto) ABG pH 7.456 H ABG pCO2 43.3 ABG pO2 58.1 L* ABG HCO3 30.5 H ABG O2 Saturation 90.8 ABG Base Excess 6.6 H [place]rell Test Positive Sodium Potassium Chloride Carbon Dioxide Anion Gap BUN Creatinine Est GFR ( Amer) Est GFR (Non-Af Amer) BUN/Creatinine Ratio Glucose Calcium Total Bilirubin AST ALT Alkaline Phosphatase Total Protein POC Glucose 369 H Preliminary micro results at discharge 05/20/24 07:08 Blood Culture Result 2 - Preliminary Blood - Left Hand NO GROWTH AT 36-48 HOURS. FINAL TO FOLLOW. 05/20/24 06:55 Blood Culture Result 1 - Preliminary Blood - Left Antecubital NO GROWTH AT 36-48 HOURS. FINAL TO FOLLOW. Discharge Plan Discharge Disposition: Home, Self-Care Discharge Medications: New prednisone 20 mg Tablet 40 mg PO QD 7 Days Qty: 14 0RF benzonatate 100 mg Capsule 200 mg PO Q8H PRN (Reason: Cough) 3 Days Qty: 24 0RF amoxicillin-pot clavulanate 875-125 mg Tablet 1 tab PO BID 7 Days Qty: 14 0RF Continued pantoprazole 40 mg tablet,delayed release (DR/EC) 40 mg PO DAILY albuterol sulfate 90 mcg/actuation HFA aerosol inhaler 1 puff INHALATION Q4H PRN (Reason: shortness of breath or wheezing) isosorbide mononitrate 30 mg Tablet Extended Release 24 Hr 30 mg PO QD Qty: 30 11RF Patient Comments: DUE TO BE FILLED 03/06 BUT PATIENTS STATE SHE IS STILL TAKING carvedilol [Coreg] 12.5 mg tablet 12.5 mg PO BID Qty: 60 11RF Patient Comments: LAST FILLED DECEMBER 2023 BUT PATIENT STATES SHE IS STILL TAKING Rx Instructions: must administer with a meal/food nitroglycerin 0.4 mg tablet, sublingual 0.4 mg sublingual Q5M MDD 3/day PRN (Reason: chest pain) Qty: 30 11RF Rx Instructions: do not exceed 3 doses per episode gabapentin 600 mg tablet 600 mg PO Q12H atorvastatin 80 mg tablet 80 mg PO DAILY alprazolam 1 mg tablet 1 mg PO BID clopidogrel 75 mg tablet 75 mg PO DAILY aspirin 81 mg tablet,delayed release (DR/EC) 81 mg PO DAILY buspirone 10 mg tablet 10 mg PO BID dapagliflozin propanediol [Farxiga] 10 mg tablet 10 mg PO DAILY levothyroxine 75 mcg Tablet 75 mcg PO ACB Qty: 30 11RF Patient Comments: LAST FILLED 01/04 BUT PATIENT STATES TILL TAKING cyclobenzaprine 10 mg tablet 10 mg PO BID PRN (Reason: muscle spasm) tramadol 50 mg tablet 50 mg PO Q6H PRN (Reason: pain) trazodone 100 mg tablet 100 mg PO .QHS Activity: increase activity as tolerated and resume usual activities as tolerated Diet: advance to your usual diet Print Language: Syriac Patient Instructions: Benzonatate (By mouth) (Hemalatha Brewer), Prednisone (By mouth), Amoxicillin (By mouth), COPD (Chronic Obstructive Pulmonary Disease) (DC), Hypoxia (GEN) Forms: Portal Instructions Follow Up Appointments: Follow up with Dr. Richardson on sundayMay 26, please call office for appointment time. Discharge Date/Time: 05/24/24 10:27 Discharge location: Home
[2024-05-24 09:45] LABS: Albumin Globulin Ratio 0.7; Albumin Level 2.2 g/dL (3.4-5.0); Globulin 3.1 g/dL; Theophylline 10.5 ug/mL (10.0-20.0)
--- NOTE | 2024-05-26 14:33 | CM.DCFOLLOWU ---
Person spoke with: Vivian How are you feeling? Very tired How is your pain? No pain Did you understand your discharge instructions? Yes Do you have any questions about your discharge instructions? No Were you given any prescriptions at discharge? Yes Were you able to get your prescriptions filled? Did not get filled, the weather has been too bad. Explained to pt importance of taking medications. Pt states she will get them today Do you understand how to take your medications as ordered? Yes Do you have any questions about your follow up appointment and do you plan to keep your follow up appointment? Did not go to appointment today, pt will reschedule Is there anything else that you would like to discuss? No Questions/Comments/Concerns/Other:
== END 2024-05-24 10:27 | disposition home or self-care (01) | DRG 189 ==
LOC: ER 07:50 → ICU 08:37 → MS 05-21 22:18
PROVIDERS: Emergency Medicine; Admitting Provider Family Medicine; Emergency Provider Emergency Medicine; PCP Family Medicine; Visit Provider Family Medicine
DX: J96.01 Acute respiratory failure with hypoxia (principal); J18.9 Pneumonia, unspecified organism; I21.A1 Myocardial infarction type 2; J44.0 Chronic obstructive pulmonary disease with (acute) lower respiratory infection; J44.1 Chronic obstructive pulmonary disease with (acute) exacerbation; I50.42 Chronic combined systolic (congestive) and diastolic (congestive) heart failure; E87.20 Acidosis, unspecified; J20.9 Acute bronchitis, unspecified; D50.9 Iron deficiency anemia, unspecified; D69.6 Thrombocytopenia, unspecified; D70.9 Neutropenia, unspecified; E03.9 Hypothyroidism, unspecified; E78.5 Hyperlipidemia, unspecified; F17.210 Nicotine dependence, cigarettes, uncomplicated; F41.1 Generalized anxiety disorder; I11.0 Hypertensive heart disease with heart failure; I25.10 Atherosclerotic heart disease of native coronary artery without angina pectoris; I95.9 Hypotension, unspecified; K21.9 Gastro-esophageal reflux disease without esophagitis; K58.9 Irritable bowel syndrome, unspecified; R73.9 Hyperglycemia, unspecified; Z11.52 Encounter for screening for COVID-19; Z79.02 Long term (current) use of antithrombotics/antiplatelets; Z79.52 Long term (current) use of systemic steroids; Z79.82 Long term (current) use of aspirin; Z79.890 Hormone replacement therapy; Z79.899 Other long term (current) drug therapy
CPT/HCPCS: 36415; 36600; 71045; 71275; 74019; 80048; 80053; 80198; 82805; 82948; 83605; 83690; 83880; 84484; 85007; 85025; 85027; 87040; 87070; 87205; 87804; 87811; 93005; 94640; 94660; 94667; 94668; 94761; 96365; 96375; 97161; 97530; 99285; 99406; J0456; J0696; J2060; J2270; J2405; J2919; J7512; Q9967

== ENCOUNTER 2024-12-04 20:57 | Inpatient (IN) | payer OTHER, SELFPAY ==
--- OUTSIDE RECORDS SUMMARY | 2012-10-29 09:09 | XMS_ITS | Continuity of Care Document ---
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 Role Phone Magalie Abernathy Unavailable Unavailable Medications Medication Instructions Dosage Effective Dates (start - stop) Status Comments Motrin 800 mg Tab take 1 tablet (800MG ) by oral route 3 times every day with food - Active Vicodin 5 mg-500 mg Tab take 1 tablet by oral route every 4 - 6 hours as needed for pain - Active Xanax 1 mg Tab - Active Zanaflex 2 mg Tab - Active hydroxyzine 25 mg Tab - Active Procedures Procedure Date PREVENTIVE NEW AGE 40-64 Thin Prep(R) Imaging System Pap W/Reflex To HR HPV DNA CHLAMYDIA & N GONORRHOEAE DNA, SDA Advance Directives Directive Yes / No Effective Date File Name Resuscitation Not Answered N/A N/A Life Support Not Answered N/A N/A Intubation Not Answered N/A N/A Antibiotics Not Answered N/A N/A IV Fluid Support Not Answered N/A N/A Tube Feed Not Answered N/A N/A Other Directive N/A N/A WARNING:The information contained in this section is historical and is provided for information only and does not constitute a legal document or any assurance that the information is still accurate. Please verify the information with the thorne of the legal document before using it for clinical purposes. Encounters Encounter Description Practice Location Reason(s) For Visit Diagnoses Date Provider Providers Copied on Encounter [facility], [address], [place], [id number] , [place] tel:[phone] [facility] No Information 3 Michela Mejias. [address], [place], [id number] , [place]. tel: [phone] PREVENTIVE NEW AGE 40-64 [facility], [address], [place], [id number] , [place] tel: [phone] [facility] establish care (chief complaint) annual visit (chief complaint) Gynecological ExaminationMetrorrhag ia 3 Michela Mejias. [address], [place], [id number] , [place]. tel: [phone] Family History Family Member Type Diagnosis Age At Onset Mother Problem (finding) Alive and well Father Problem (finding) Heart disease Problem (finding) Family history of prost ate cancer Mother Problem (finding) diabetes melli tus in first degree relative Problem (finding) Family history of malignant neoplasm of breast in first degree relative Father Problem (finding) hypertension Payers Payer name Insurance type Covered libertarian ID Authoriza tion(s) No Information Social History Type Description Quantity Date Captured Comments Alcohol Use Details Unknown Caffeine Use Details Unknown Tobacco Use Status Smoking Status No Information Sex Female Sexual Orientation Straight or heterosexual Chief Complaint And Reason For Visit No Information Reason For Referral Reason For Referral No Information Plan Of Treatment Date Type Action Status Goal PAP. Due on due History Of Present Illness Encounter Date Complaint History Of Prese nt Illness No Information Functional Status Date Functional Assessmen t No Information Instructions Date Instruction Additional Infor mation No Information Assessments Type Assessment Date No Information Patient Care Teams Name Effective Dates (start - stop) Status Members No Information
--- OUTSIDE RECORDS SUMMARY | 2024-11-11 07:00 | XMS_ITS ---
Author Organization [facility] in [place] Address [address] [place] [address] Care Team Providers Care Territory Manager Name Role Phone Manish Richardson Primary Care Provider Allergies No Known Allergies REASON FOR VISIT 6 month f/u NEEDS TO SIGN CSA Medications Medication SIG (Take, Route, Frequency, Duration) Notes Start Date End Date Status traZODone HCl 100 MG TAKE 1 TABLET BY MOUTH EVERY DAY AT BEDTIME NEEDED for 30 Active traMADol HCl 50 MG 1 tablet as needed Orally 4 times a day for 14 days 11/11/2024 Active Ibuprofen 800 MG TAKE 1 TABLET BY MOUTH EVERY 8 HOURS WITH FOOD OR MILK NEEDED for 30 Active Pantoprazole Sodium 40 MG 1 tablet Orall y Once a day for 90 days Active Spironolactone 25 MG 1 tablet Orally for 30 day(s) 07/23/2023 Active Furosemide 40 MG 1 tablet Orally Once a day for 30 07/23/2023 Active hydroCHLOROthiazide 12.5 MG 1 tablet in the morning Orally Once a day Active Gabapentin 600 MG 1 tableets Orally bi d for 30 days Active Imdur 30 MG 1 tablet in the morning Orally Once a day for 90 days 08/24/2023 Active Sertraline HCl 100 MG 1 tablet Orally On ce a day Active Cyclobenzaprine HCl 10 MG TAKE 1 TABLET Orally twice daily for 30 days Active Clopidogrel Bisulfate 75 MG TAKE 1 TABLE T BY MOUTH EVERY DAY for 30 Active Farxiga 10 MG TAKE 1 TABLET BY MOUTH EVERY MORNING for 30 Active Carvedilol 12.5 MG 1 tablet with food Orally Twice a day Active busPIRone HCl 10 MG 1 tablet Orally Twic e a day for 90 days Active ALPRAZolam 1 mg TAKE ONE TABLET BY MOUTH TWICE A DAY FOR 30 DAYS for 30 10/22/2024 Active Albuterol Sulfate HFA 108 (9 0 Base) MCG/ACT 1 puff as needed Inhalation every 4 hrs for 30 days Active Aspirin 81 81 MG 1 tablet Orally Once a day Active Ancobon 250 MG as directed Orally Active Atorvastatin Calcium 80 MG 1 tablet Oral ly Once a day for 100 days Active Social History Tobacco Use: Social History Observation Description Date Details (start date - stop date) Current Smoker 1974 - NA Tobacco Use/Smoking Question Answer Notes Patient is a current smoker When did you start smoking? 1974 AUDIT-C (Standard) Question Answer Notes Did you have a drink containing alcohol in the p ast year? No Points 0 Interpretation Negative Vital Signs Weight 147 lbs 11/11/2024 Height 67.5 in 11/11/2024 Blood pressure systolic 124 mm Hg 11/12/19 25 Blood pressure diastolic 70 mm Hg 025 BMI 22.68 kg/m2 11/11/2024 Encounters Encounter Location Date Provider Diagnosis [id number] [place] [address] 11/11/2024 Manish Richardson Chronic obstructive pulmonary disease (COPD) J44.9 ; Pulmonary embolism I26.99 and Hypertension I10 Assessments Encounter Date Diagnosis (ICD Code) Assessment Notes Treatment Notes Treatment Clinical Notes Section Notes 11/11/2024 Chronic obstructive pulmonary disease (COPD) (ICD-10 - J44.9) 11/11/2024 Pulmonary embolism (ICD-10 - I26.99) 11/11/2024 Hypertension (ICD-10 - I10) Plan Of Treatment Medication Medication Name Sig Start Date Stop Date Notes traMADol HCl 50 MG 1 tablet as needed O rally 4 times a day for 14 days 11/11/2024 Ibuprofen 800 MG TAKE 1 TABLET BY MISSAEL TH EVERY 8 HOURS WITH FOOD OR MILK NEEDED for 30 Pantoprazole Sodium 40 MG 1 tablet Orall y Once a day for 90 days Pending Test Test Name Order Date HEMOGLOBIN A1C (GLYCO) 11/11/2024 IRON, TOTAL 11/11/2024 LIPID PANEL (CHOL/TRIG/HDL/LDL) 11/12/19 25 High Sensitivity Troponin 11/11/2024 BNP 11/11/2024 THYROID PANEL (T4/TSH/FREE T3) 5 CMP (COMP MET LE) w/eGFR CKD-EPI 2024 CBC WITH DIFF 11/11/2024 Medications Administered Medication Instructions Date of Administration Dosage Notes Ketorolac Tromethamine 11/11/2024 60 mg Triamcinolone 40 mg/ml 11/11/2024 80 mg Progress Notes * Vviian VANN ADOB:1960 (64 yo F)Acc No.[id number]:11/11/2024 Progress Note Patient: Vivian BUNCH Provider: Bimal Richardson ([facility])MD :1960 A ge:64 Y S ex:Female Date:11/11/2024 Address:[address] [place] [address] [place], [id number] Check In:10:59 AM ESTCheck O ut:11:56 AM EST Subjective: * Chief Complaints: * 6 month f/u NEEDS TO SIGN CSA * ROS: E ENT: hearing changes d enies. v isual changes d enies.?non-healing mouth sores d enies. s wollen glands or neck lumps d enies. h oarseness d enies. s ore throat d enies. d ifficulty swallowing d enies. n ose bleeds d enies. n mahogany congestion d enies. e ar ache d enies. e ar discharge?denies. r inging in ears d enies. l ight sensitivity d enies. e ye pain d enies. b lurring d enies. e ye irritation d enies. d ouble vision d enies.?vision loss d enies. G eneral/Constitutional: Sweats: D enies. F atigue d enies. S leep problems d enies. A norexia d enies. M alaise d enies. W eight loss d enies.?Fatigue or Weakness d enies. F ever or Chills d enies. C ardiovascular: Shortness of Breath w/lying flat d enies. L ightheadedness/dizziness d enies. C hest tightness/ heavy pressure d enies. S welling of legs, ankles, or feet d enies. W aking up with shortness of breath d enies. C hest pain denies. P alpitations d enies. W eight gain d enies. R espiratory: Chronic or frequent cough d enies. C oughing up blood?denies. D ifficulty breathing d enies. P roductive cough d enies. S noring?denies. S hortness of breath that awakens from sleep (PND) d enies. C hest pain d enies. S putum production d enies. W heezing d enies. M usculoskeletal: Joint pain d enies. J oint Fluid d enies. B ack pain d enies. K nee pain d enies. N hali pain d enies. J oint Stiffness d enies. M uscle cramps d enies. W eakness of muscles d enies. A rthritis d enies. M uscle aches d enies. P ain in shoulder(s) d enies. S wollen joints d enies. * Active Problem List I10 Hypertension Modified On:08/24/2023U Status:confirmed J44.9 Chronic obstructive pulmonary disease (COPD) Modified On:08/24/2023U Status:confirmed I26.99 Pulmonary embolism Modified On:08/30/2022U Status:confirmed G47.00 Insomnia Modified On:08/30/2022U Status:confirmed K58.9 Irritable bowel synd sharri Modified On:08/30/2022U Status:confirmed M54.30 Sciatica Modified On:08/01/2023U Status:confirmed F17.200 Current smoker Modified On:08/30/2022U Status:confirmed R60.0 Edema, lower extremi ty Modified On:08/30/2022U Status:confirmed J43.9 Emphysema Modified On:08/30/2022U Status:confirmed K21.9 Gastro-esophageal re flux disease Modified On:08/30/2022U Status:confirmed M54.89 Other back pain, uns pecified chronicity Modified On:08/07/2023U Status:confirmed Z98.61 S/P percutaneous tra nsluminal coronary angioplasty Modified On:08/24/2023 Status:confirmed I21.4 Acute non-ST elevati on myocardial infarction (NSTEMI) Modified On:08/30/2022 Status:confirmed F41.8 Anxiety and depressi on Modified On:08/30/2022 Status:confirmed J12.82 Pneumonia due to Cor on2018 Modified On:08/30/2022 Status:confirmed J44.9 Advanced COPD Modified On:08/08/2022 Status:confirmed I25.10 CAD (coronary artery disease) Modified On:09/11/2022 Status:confirmed R06.02 Shortness of breath Modified On:08/01/2023 Status:confirmed F41.9 Anxiety Modified On:07/11/2023 Status:confirmed M54.30 Sciatic leg pain Modified On:07/11/2023 Status:confirmed I10 BP (high blood press ure) Modified On:08/14/2023 Status:confirmed E03.9 Acquired hypothyroid ism Modified On:07/11/2023 Status:confirmed D50.9 Fe deficiency anemia Modified On:08/14/2023 Status:confirmed K21.9 GERD (gastroesophage al reflux disease) Modified On:08/14/2023 Status:confirmed R07.9 Chest pain Modified On:08/15/2023 Status:confirmed F41.1 HODAN (generalized anx iety disorder) Modified On:10/02/2023 Status:confirmed D50.9 Anemia, iron deficie ncy Modified On:10/02/2023 Status:confirmed D72.829 Elevated WBCs Modified On:10/02/2023 Status:confirmed D69.6 Acquired thrombocyto penia Modified On:10/02/2023 Status:confirmed J44.1 COPD exacerbation Modified On:10/31/2023 Status:confirmed N18.2 Chronic kidney disea se (CKD) stage G2/A1, mildly decreased glomerular filtration rate (GFR) between 60-89 mL/min/1.73 square meter and albuminuria creatinine ratio less than 30 mg/g Modified On:10/31/2023W/U Status:confirmed E78.5 Dyslipidemia Modified On:06/19/2024W/U Status:confirmed * Medical History: * Surgical History: C ardiac Stent Placement x1 * Hospitalization/Major Diagno stic Procedure: d yspnea/ copd 07/2022hypoxia 08/2021 * Family History: F ather: alive, asthma, Heart Disease. M other: alive, asthma, diabetes mellitus, Heart Disease, kidney disease. * Social History: T obacco Use: T obacco Use/Smoking P atient is a c urrent smoker W hen did you start smoking? 0 1974 D rug/Alcohol: A RICHIE-C (Standard) D id you have a drink containing alcohol in the past year? N o P oints 0 I nterpretation N egative * Medications: T akingAlbuterol Sulfate HFA 108 (90 Base) MCG/ACT Aerosol Solution 1 puff as needed Inhalation every 4 hrs ALPRAZolam 1 mg Tablet TAKE ONE TABLET BY MOUTH TWICE A DAY FOR 30 DAYS Ancobon(Flucytosine) 250 MG Capsule as directed Orally Aspirin 81(Aspirin) 81 MG Tablet Delayed Release 1 tablet Orally Once a day Atorvastatin Calcium 80 MG Tablet 1 tablet Orally Once a day busPIRone HCl 10 MG Tablet 1 tablet Orally Twice a day Carvedilol 12.5 MG Tablet 1 tablet with food Orally Twice a day Clopidogrel Bisulfate 75 MG Tablet TAKE 1 TABLET BY MOUTH EVERY DAY Cyclobenzaprine HCl 10 MG Tablet TAKE 1 TABLET Orally twice daily Farxiga(Dapagliflozin Propanediol) 10 MG Tablet TAKE 1 TABLET BY MOUTH EVERY MORNING Furosemide 40 MG Tablet 1 tablet Orally Once a day Gabapentin 600 MG Tablet 1 tableets Orally bid hydroCHLOROthiazide 12.5 MG Tablet 1 tablet in the morning Orally Once a day Ibuprofen 800 MG Tablet TAKE 1 TABLET BY MOUTH EVERY 8 HOURS WITH FOOD OR MILK NEEDED Imdur 30 MG Tablet Extended Release 24 Hour 1 tablet in the morning Orally Once a day Pantoprazole Sodium 40 MG Tablet Delayed Release 1 tablet Orally Once a day Sertraline HCl 100 MG Tablet 1 tablet Orally Once a day Spironolactone 25 MG Tablet 1 tablet Orally traMADol HCl 50 MG Tablet 1 tablet as needed Orally 4 times a day traZODone HCl 100 MG Tablet TAKE 1 TABLET BY MOUTH EVERY DAY AT BEDTIME NEEDED Medication List reviewed and reconciled with the patientTaking Albuterol Sulfate HFA 108 (90 Base) MCG/ACT Aerosol Solution 1 puff as needed Inhalation every 4 hrs Taking ALPRAZolam 1 mg Tablet TAKE ONE TABLET BY MOUTH TWICE A DAY FOR 30 DAYS Taking Ancobon(Flucytosine) 250 MG Capsule as directed Orally Taking Aspirin 81(Aspirin) 81 MG Tablet Delayed Release 1 tablet Orally Once a day Taking Atorvastatin Calcium 80 MG Tablet 1 tablet Orally Once a day Taking busPIRone HCl 10 MG Tablet 1 tablet Orally Twice a day Taking Carvedilol 12.5 MG Tablet 1 tablet with food Orally Twice a day Taking Clopidogrel Bisulfate 75 MG Tablet TAKE 1 TABLET BY MOUTH EVERY DAY Taking Cyclobenzaprine HCl 10 MG Tablet TAKE 1 TABLET Orally twice daily Taking Farxiga(Dapagliflozin Propanediol) 10 MG Tablet TAKE 1 TABLET BY MOUTH EVERY MORNING Taking Furosemide 40 MG Tablet 1 tablet Orally Once a day Taking Gabapentin 600 MG Tablet 1 tableets Orally bid Taking hydroCHLOROthiazide 12.5 MG Tablet 1 tablet in the morning Orally Once a day Taking Ibuprofen 800 MG Tablet TAKE 1 TABLET BY MOUTH EVERY 8 HOURS WITH FOOD OR MILK NEEDED Taking Imdur 30 MG Tablet Extended Release 24 Hour 1 tablet in the morning Orally Once a day Taking Pantoprazole Sodium 40 MG Tablet Delayed Release 1 tablet Orally Once a day Taking Sertraline HCl 100 MG Tablet 1 tablet Orally Once a day Taking Spironolactone 25 MG Tablet 1 tablet Orally Taking traMADol HCl 50 MG Tablet 1 tablet as needed Orally 4 times a day Taking traZODone HCl 100 MG Tablet TAKE 1 TABLET BY MOUTH EVERY DAY AT BEDTIME NEEDED Medication List reviewed and reconciled with the patient * Allergies: N .K.D.A.no[Allergies Verified] Objective: * Vitals: W t:147lbs, Ht: 67.5 in, BP:124/70mm Hg, BMI:22.68Index, Wt-k.68 kg. * Examination: P hysical Exam: GENERAL: w ell developed, well nourished, in no acute distress. HEAD: n ormocephalic/atraumatic. EYES: p upils equal, round and reactive to light, conjunctivae and sclerae normal. EARS: n o deformity or lesion of external ear, canals and TM appear normal bilaterally, TM's intact, not inflamed with normal light reflex, hearing grossly normal to conversational speech. NOSE: n o deformity, discharge, inflammation, or lesions.? MOUTH: m ucous membranes moist, normal oropharynx and posterior pharynx without lesions or exudates, tongue normal, dentition normal. NECK: n hali supple, no masses or palpable cervical nodes, trachea midline, thyroid without nodules, masses, tenderness, or enlargement. CHEST: n o chest wall deformity, no chest wall tenderness.? LUNGS: n ormal respiratory effort and clear to auscultation, no wheezes, rales, or rhonchi, good air exchange. CARDIO: r egular rate and rhythm, normal S1 and S2, nor murmur, rub, or gallop. PULSES: n ormal capillary refill. ABDOMEN: s oft, non-distended, non-tender, no masses. MUSCULOSKELETAL: n o deformity or scoliosis noted, normal range of motion, joints normal, no erythema, edema, effusion, or ecchymosis. EXTREMITY: n o clubbing, cyanosis, edema, or deformity with normal ROM in both upper and lower bilateral extremities. NEUROLOGIC: g rossly normal. SKIN: n o rashes, ulcerations, or suspicious lesions. LYMPH NODES: n o cervical adenopathy, nodes normal. MENTAL STATUS: a lert and oriented x3, normal mood and affect. Assessment: * Assessment: 1. C hronic obstructive pulmonary disease (COPD) - J44.9 (Primary) 2 . P ulmonary embolism - I26.99 3 . H ypertension - I10 Plan: * Treatment: 2. P ulmonary embolism L AB: HEMOGLOBIN A1C (GLYCO) L AB: IRON, TOTAL L AB: LIPID PANEL (CHOL/TRIG/HDL/LDL) L AB: THYROID PANEL (T4/TSH/FREE T3) L AB: CMP (COMP MET LE) w/eGFR CKD-EPI L AB: CBC WITH DIFF 3. H ypertension L AB: HEMOGLOBIN A1C (GLYCO) L AB: IRON, TOTAL L AB: LIPID PANEL (CHOL/TRIG/HDL/LDL) L AB: THYROID PANEL (T4/TSH/FREE T3) L AB: CMP (COMP MET LE) w/eGFR CKD-EPI L AB: CBC WITH DIFF * Therapeutic Injections: Triamcinolone 40 mg/ml : 80 mg (Route: Intramuscular) given by GORDON Bauer on right buttock? Ketorolac Tromethamine : 60 mg (Route: Intramuscular) given by GORDON Bauer on left buttock * Procedure Codes: 9 6372 THERAP.INJ. OF MED. INTRAMUSCULAR OR [id number] TMC ACET,PER 10MG., Units: 8.00 J1885 TORADOL, PER 15 MG, Units: 4.00 , Modifiers: JZ * * Sign off status: Completed Visit Status: C HK (Check Out) true * Provider: Bimal Richardson ([facility])MD Date: 11/11/2024 Generated for Printi ng/Fakamg/eTransmitting on: 12/04/2024 09:45 PM EDT History and Physical Notes * Examination Category Sub-Category Detail Notes Category Not es Physical Exam GENERAL: well developed, well nourished, in no acute distress HEAD: normocephalic/atraum atic EYES: pupils equal, round and reactive to light, conjunctivae and sclerae normal EARS: no deformity or lesi on of external ear, canals and TM appear normal bilaterally, TM's intact, not inflamed with normal light reflex, hearing grossly normal to conversational speech NOSE: no deformity, discha rge, inflammation, or lesions MOUTH: mucous membranes danny st, normal oropharynx and posterior pharynx without lesions or exudates, tongue normal, dentition normal NECK: neck supple, no mass es or palpable cervical nodes, trachea midline, thyroid without nodules, masses, tenderness, or enlargement CHEST: no chest wall deform ity, no chest wall tenderness LUNGS: normal respiratory e ffort and clear to auscultation, no wheezes, rales, or rhonchi, good air exchange CARDIO: regular rate and rhy thm, normal S1 and S2, nor murmur, rub, or gallop PULSES: normal capillary ref ill ABDOMEN: soft, non-distended, non-tender, no masses RECTAL: MUSCULOSKELETAL: no deformity or scol iosis noted, normal range of motion, joints normal, no erythema, edema, effusion, or ecchymosis EXTREMITY: no clubbing, cyanosi s, edema, or deformity with normal ROM in both upper and lower bilateral extremities NEUROLOGIC: grossly normal SKIN: no rashes, ulceratio ns, or suspicious lesions LYMPH NODES: no cervical adenopat hy, nodes normal MENTAL STATUS: alert and oriented x 3, normal mood and affect
--- OUTSIDE RECORDS SUMMARY | 2024-11-12 12:20 | XMS_ITS ---
Author Organization The [facility] in [place] Address [address] [place] [address] Care Team Providers Care Director Outpatient Services Name Role Phone Manish Richardson Primary Care Provider REASON FOR VISIT Medication Interaction Encounters Encounter Location Date Provider Diagnosis [facility] [address] [place] [address] 11/12/2024 Manish Richardson Plan Of Treatment No Information Progress Notes * Vivian VANN ADOB:1960 (64 yo F)Acc No.[id number]:11/12/2024 Patient: Pablo SHARPVivian HALE :1960 A ge:64 Y S ex:Female Address:[address] [place] [id number] * true * Date: Generated for Radha garcia/Enedina/eTransmitting on: 0 12/04/2024 09:45 PM EDT
--- OUTSIDE RECORDS SUMMARY | 2024-11-24 03:57 | XMS_ITS ---
Author Organization The [facility] in [place] Address [address] [place] [address] Care Team Providers Care Greenhouse Florist Name Role Phone Manish Richardson Primary Care Provider REASON FOR VISIT refill Medications Medication SIG (Take, Route, Fr equency, Duration) Notes Start Date End Date Status ALPRAZolam 1 mg TAKE ONE TABLET BY M OUTH TWICE A DAY FOR 30 DAYS for 30 11/24/2024 Active Encounters Encounter Location Date Provider Diagnosis [facility] [address] [place] [address] 11/24/2024 Manish Richardson Plan Of Treatment Medication Medication Name Sig Start Date Stop Date Notes ALPRAZolam 1 mg TAKE ONE TABLET BY M OUTH TWICE A DAY FOR 30 DAYS for 30 11/24/2024 Progress Notes * Vivian VANN ADOB:1960 (64 yo F)Acc No.[id number]:11/24/2024 Patient: Vivian BUNCH Maximiliano :1960 A ge:64 Y S ex:Female Address:[address] [place] [address], [address] * Refills Refill ALPRAZolam Tablet, 1 mg, 60 Each, TAKE ONE TABLET BY MOUTH TWICE A DAY FOR 30 DAYS, 30, Refills=0 * true * Date: Generated for Radha garcia/Hecotrg/eTransmitting on: 0 12/04/2024 09:45 PM EDT
[2024-12-04] VITALS (12 sets, daily range): BP systolic 124–166; BP diastolic 95–122; PULSE 88–96; TEMP 36.7; O2SAT 93–100; BMI 23.5
--- NOTE | 2024-12-04 21:10 | ECG_ITS ---
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 Measurements Intervals [place] Rate: 92 P: -[id number] [place]: 317 QRS: 27 QRSD: 72 T: 123 QT: 314 QTc: 363 Interpretive Statements Sinus rhythm with first degree AV block 4068 Nonspecific Twave abnormality 9140 abnormal rhythm ECG Compared to ECG 05/20/2024 06:09:09 ST (T wave) deviation still present Electronically Signed On 12-05-2024 7:48:32 EDT by EMMA LUCAS M.D.
--- NOTE | 2024-12-04 21:27 | ED.GENADUL1 ---
Documented by User: AARON TRAORE II 12/04/24 21:45 HPI HPI - General Adult General Chief complaint: Abdominal Pain Stated complaint: WEAKNESS Time Seen by Provider: 12/04/24 21:06 Source: patient Mode of arrival: ambulance Limitations: no limitations History of Present Illness HPI narrative: patient has 1 day history of abdominal pain, nausea, vomiting. Patient denies any chest pain, back pain patient states she does not take any blood thinners. Patient unable to provide her entire history states she had a heart attack several years ago. But cannot tell us that she had stents or not. Symptoms mild to moderate severity worse with touch or motion. Onset (ago): day(s) (one day) Location: Reports abdomen; Denies upper extremity or lower extremity Radiation: Reports back Severity: moderate Quality: Reports constant Pain Consistency: Reports constant Exacerbating factors: Reports movement Treatments prior to arrival: Reports none Related Data Home Medications ?Medication ?Instructions ?Recorded ?Confirmed alprazolam 1 mg tablet 1 mg PO BID 06/10/23 12/04/24 aspirin 81 mg tablet,delayed 81 mg PO DAILY 06/10/23 12/04/24 release buspirone 10 mg tablet 10 mg PO BID 06/10/23 12/04/24 clopidogrel 75 mg tablet 75 mg PO DAILY 06/10/23 12/04/24 dapagliflozin propanediol 10 mg 10 mg PO DAILY 06/10/23 05/20/24 tablet (Farxiga) albuterol sulfate 90 mcg/actuation 1 puff inhalation Q4H PRN 06/29/23 12/04/24 aerosol inhaler shortness of breath or wheezing pantoprazole 40 mg tablet,delayed 40 mg PO DAILY 06/29/23 12/04/24 release cyclobenzaprine 10 mg tablet 10 mg PO BID PRN muscle spasm 05/04/24 12/04/24 trazodone 100 mg tablet 100 mg PO .QHS 05/04/24 12/04/24 gabapentin 600 mg tablet 600 mg PO Q12H 05/20/24 12/04/24 Previous Rx's ?Medication ?Instructions ?Recorded carvedilol 12.5 mg tablet (Coreg) 12.5 mg PO BID #60 tabs 08/23/23 nitroglycerin 0.4 mg sublingual 0.4 mg sublingual Q5M PRN chest 08/23/23 tablet pain #30 tabs Allergies Allergy/AdvReac Type Severity Reaction Status Date / Time No Known Drug Allergies Allergy Verified 08/20/23 21:47 Opioid HPI Opioid Management Most Recent Opioid Data: Last Pain Scale 10 12/04/24, 23:11 Last Pain Intensity 0 10/11/23, 16:32 Last MAR Pain Assessment 12/04/24, 23:11 Last ORT Total Score 13 05/20/24, 08:42 Last ORT Risk Category High Risk 05/20/24, 08:42 Ur Phencyclidine Scrn, (NEGATIVE) Negative 06/10/23, 09:30 Review of Systems ROS Status of ROS 10 or more systems reviewed and unremarkable except as noted in history and below Constitutional Denies: fever or chills Ears, nose, mouth, and throat Denies: throat pain Cardiovascular Denies: chest pain or edema Respiratory Denies: cough or coughing up blood Gastrointestinal Reports: abdominal pain, nausea and vomiting Genitourinary Denies: painful urination or urinary frequency Musculoskeletal Reports: back pain Neurological Denies: headache Hematologic/Lymphatic Denies: easy bruising PFSH PFSH Medical History (Updated 12/05/24 @ 00:25 by Socorro Dawson MD) GERD (gastroesophageal reflux disease) ?K21.9 - Gastro-esophageal reflux disease without esophagitis (ICD-10) Chronic combined systolic (congestive) and diastolic (congestive) heart failure ?I50.42 - Chronic combined systolic (congestive) and diastolic (congestive) heart failure (ICD-10) Anxiety ?F41.9 - Anxiety disorder, unspecified (ICD-10) Acute hypoxemic respiratory failure ?J96.01 - Acute respiratory failure with hypoxia (ICD-10) Acute exacerbation of chronic obstructive pulmonary disease (COPD) ?J44.1 - Chronic obstructive pulmonary disease with (acute) exacerbation (ICD-10) COVID-19 ?U07.1 - COVID-19 (ICD-10) Hypothyroid ?E03.9 - Hypothyroidism, unspecified (ICD-10) HLD (hyperlipidemia) ?E78.5 - Hyperlipidemia, unspecified (ICD-10) Acute exacerbation of chronic obstructive pulmonary disease ?J44.1 - Chronic obstructive pulmonary disease with (acute) exacerbation (ICD-10) Hypertensive emergency ?I16.1 - Hypertensive emergency (ICD-10) Acute gastroenteritis ?K52.9 - Noninfective gastroenteritis and colitis, unspecified (ICD-10) Hypoxemia ?R09.02 - Hypoxemia (ICD-10) Chest pain ?R07.9 - Chest pain, unspecified (ICD-10) Coronary artery disease ?I25.10 - Atherosclerotic heart disease of [place] coronary artery without angina pectoris (ICD-10) Elevated troponin ?R79.89 - Other specified abnormal findings of blood chemistry (ICD-10) Pneumonia ?J18.9 - Pneumonia, unspecified organism (ICD-10) Anxiety ?F41.9 - Anxiety disorder, unspecified (ICD-10) Acute kidney injury ?N17.9 - Acute kidney failure, unspecified (ICD-10) Acute anxiety ?F41.9 - Anxiety disorder, unspecified (ICD-10) Pacemaker ?Z95.0 - Presence of cardiac pacemaker (ICD-10) Iron deficiency anemia ?D50.9 - Iron deficiency anemia, unspecified (ICD-10) COPD (chronic obstructive pulmonary disease) ?J44.9 - Chronic obstructive pulmonary disease, unspecified (ICD-10) Hypoxia ?R09.02 - Hypoxemia (ICD-10) Dyspnea ?R06.00 - Dyspnea, unspecified (ICD-10) Elevated brain natriuretic peptide (BNP) level ?R79.89 - Other specified abnormal findings of blood chemistry (ICD-10) Hypertension ?I10 - Essential (primary) hypertension (ICD-10) Elevated troponin ?R79.89 - Other specified abnormal findings of blood chemistry (ICD-10) Acute dyspnea ?R06.00 - Dyspnea, unspecified (ICD-10) IBS (irritable bowel syndrome) ?K58.9 - Irritable bowel syndrome without diarrhea (ICD-10) Anxiety ?F41.9 - Anxiety disorder, unspecified (ICD-10) Heart attack ?I21.9 - Acute myocardial infarction, unspecified (ICD-10) Sciatic leg pain ?M54.30 - Sciatica, unspecified side (ICD-10) Herniated disc, cervical ?M50.20 - Other cervical disc displacement, unspecified cervical region (ICD-10) Surgical History History of appendectomy ?Z90.49 - Acquired absence of other specified parts of digestive tract (ICD-10) History of heart artery stent ?Z95.5 - Presence of coronary angioplasty implant and graft (ICD-10) Family History (Updated 05/04/24 @ 10:45 by Amanda Remy) Mother Family history of CHF (congestive heart failure) Family history of hypertension Father Family history of CHF (congestive heart failure) Brother Family history of CHF (congestive heart failure) Other Family history of diabetes mellitus Family history of myocardial infarction Social History (Updated 05/21/24 @ 10:49 by Eva Che) Within the past year, how often did you have a drink containing alcohol: monthly or less Smoking status: Light tobacco smoker Nicotine containing products detail: 1 pack/week Non-prescribed substance use: cannabis (any form) Non-prescribed substance use details: smokes marijuana, gummies Previous occupational history: disabled Highest level of school completed/degree received: high school graduate Are you now , , , , never or living with a partner: In a typical week, how many times do you talk on the telephone with family, friends, or neighbors: once per week How often do you get together with friends or relatives: never How often do you attend voodoo or yazidi services: 4 or more times per year Do you belong to any clubs or organizations such as voodoo groups unions, [employer] or athletic groups, or school groups: no Total score: 1 Score interpretation: A score of less than or equal to 1 indicates the most socially isolated. Little interest or pleasure in doing things: not at all Feeling down, depressed, or hopeless: not at all Feel stressed/tense/nervous/anxious/difficulty sleeping: very much Life stressors: financial matters Life stressor details: 2020 lost family Do you think of yourself as: straight/heterosexual Gender Identity: female Exam Constitutional Vital Signs, click to edit/add: Last Vital Signs Temp 98.1 F 12/04/24 20:57 Pulse 93 H 12/04/24 23:30 Resp 22 H 12/04/24 23:30 BP 124/95 H 12/04/24 23:30 Pulse Ox 94 L 12/04/24 23:30 O2 Del Method Room Air 12/04/24 20:57 Documenting provider has reviewed patient's vital signs: yes Common normals: no apparent distress General appearance: disheveled; not ill appearing Orientation/consciousness: Yes awake HENMT Common normals: normocephalic Face and sinus: normal facial exam External ear: external ears normal Eye Common normals: PERRL Neck & C-Spine Common normals: full ROM Chest Common normals: palpation of chest normal Respiratory Common normals: normal respiratory effort and clear to auscultation bilaterally Cardio Common normals: regular rate, regular rhythm, S1 normal heart sound and S2 normal heart sound GI Inspection: no abdominal distension Auscultation: normoactive bowel sounds Palpation: tender Details: LLQ and LUQ Extremity Common normals: no pedal edema Right lower extremity: lower leg (There is contusion and excoriations noted left ankle.) Neuro Sensorium/orientation: awake and alert Psych Common normals: mental status grossly normal Course Vital Signs Vital signs: Vital Signs Temperature 98.1 F 12/04/24 20:57 Pulse Rate 96 H 12/04/24 20:57 Respiratory Rate 18 12/04/24 20:57 Blood Pressure 152/110 H 12/04/24 20:57 Pulse Oximetry 98 12/04/24 20:57 Oxygen Delivery Method Room Air 12/04/24 20:57 Temperature 98.1 F 12/04/24 20:57 Pulse Rate 93 H 12/04/24 23:30 Respiratory Rate 22 H 12/04/24 23:30 Blood Pressure 124/95 H 12/04/24 23:30 Pulse Oximetry 94 L 12/04/24 23:30 Oxygen Delivery Method Room Air 12/04/24 20:57 Medical Decision Making MDM Narrative Medical decision making narrative: Patient presents with 1 day history of abdominal pain, nausea, vomiting. Patient denies abdominal pain back pain last bowel movement 2 days ago. Patient denies any blood thinner use. Unable to provide any history of cardiac stenting. Will add CBC CMP troponin EKG chest abdomen pelvis with contrast as patient has abdominal pain back pain. 0.9% saline 1 L and Zofran 4 mg IV. Differential Diagnosis Differential Diagnosis: Abdominal pain, nausea, vomiting, enteritis, constipation, diverticulitis. Lab Data Labs: Lab Results 12/04/24 12/04/24 Range/Units 21:29 23:00 WBC 18.2 H (4.0-11.0) 10^3/uL RBC 5.61 H (4.20-5.40) 10^6/uL Hgb 16.0 (12.0-16.0) g/dL Hct 48.9 H (36.0-48.0) % MCV 87.2 (81.0-99.0) fL MCH 28.5 (26.7-34.0) pg MCHC 32.7 (29.9-35.2) g/dL RDW 15.5 H (11.0-15.0) % Plt Count 447 (150-450) 10^3/uL MPV 10.1 (9.5-13.5) fL Seg Neuts % (Manual) 76.0 H (43.0-75.0) Lymphocytes % (Manual) 14.0 L (20.5-60.0) % Monocytes % (Manual) 10.0 (1.7-12.0) % Eosinophils % (Manual) 0.0 L (0.9-7.0) % Basophils % (Manual) 0.0 L (0.2-2.0) % Neutrophils # (Manual) 13.83 H (1.4-6.5) 10^3/uL Lymphocytes # (Manual) 2.54 (1.20-3.80) 10^3/uL Monocytes # (Manual) 1.82 H (0.30-0.80) 10^3/uL Eosinophils # (Manual) 0.00 (0.00-0.70) 10^3/uL Basophils # (Manual) 0.00 (0.00-0.10) 10^3/uL Sodium 133 L (136-145) mmol/L Potassium 4.8 (3.5-5.1) mmol/L Chloride 94 L (98-107) mmol/L Carbon Dioxide 24.5 (21.0-32.0) mmol/L Anion Gap 19.3 BUN 26.0 H (7.0-18.0) mg/dL Creatinine 2.56 H (0.55-1.02) mg/dL Est GFR ( Amer) 23 L (>=60 mL/min/1.73m^2) Est GFR (Non-Af Amer) 19 L (>=60 mL/min/1.73m^2) BUN/Creatinine Ratio 10.2 Glucose 222 H (74-106) mg/dL Calcium 10.9 H (8.5-10.1) mg/dL Magnesium 2.4 (1.8-2.4) mg/dL Total Bilirubin 0.3 (0.2-1.0) mg/dL AST 31 (15-37) U/L ALT 27 (14-59) U/L Alkaline Phosphatase 105 (46-116) U/L Troponin I High Sens 78.7 H* 69.6 H* (4.0-51.3) pg/mL Total Protein 8.8 H (6.4-8.2) g/dL Albumin 4.0 (3.4-5.0) g/dL Globulin 4.8 g/dL Albumin/Globulin Ratio 0.8 Lipase 24.0 (16.0-77.0) U/L ECG Data Attestation: I personally reviewed and interpreted this ECG as follows: Interpretation: [id number], my interpretation rate 92 bpm QRS 72 ms QTc 363 ms sinus rhythm Discharge Plan Discharge Chief Complaint: Abdominal Pain Clinical Impression: Abdominal pain, Leukocytosis, Acute kidney injury, Elevated troponin Patient Disposition: Admitted As Inpatient Time of Disposition Decision: 00:25 Condition: Good Documented by User: Socorro Dawson MD 12/05/24 00:25 HPI HPI - General Adult General Chief complaint: Abdominal Pain Stated complaint: WEAKNESS Time Seen by Provider: 12/04/24 21:06 Related Data Home Medications ?Medication ?Instructions ?Recorded ?Confirmed alprazolam 1 mg tablet 1 mg PO BID 06/10/23 12/04/24 aspirin 81 mg tablet,delayed 81 mg PO DAILY 06/10/23 12/04/24 release buspirone 10 mg tablet 10 mg PO BID 06/10/23 12/04/24 clopidogrel 75 mg tablet 75 mg PO DAILY 06/10/23 12/04/24 dapagliflozin propanediol 10 mg 10 mg PO DAILY 06/10/23 05/20/24 tablet (Farxiga) albuterol sulfate 90 mcg/actuation 1 puff inhalation Q4H PRN 06/29/23 12/04/24 aerosol inhaler shortness of breath or wheezing pantoprazole 40 mg tablet,delayed 40 mg PO DAILY 06/29/23 12/04/24 release cyclobenzaprine 10 mg tablet 10 mg PO BID PRN muscle spasm 05/04/24 12/04/24 trazodone 100 mg tablet 100 mg PO .QHS 05/04/24 12/04/24 gabapentin 600 mg tablet 600 mg PO Q12H 05/20/24 12/04/24 Previous Rx's ?Medication ?Instructions ?Recorded carvedilol 12.5 mg tablet (Coreg) 12.5 mg PO BID #60 tabs 08/23/23 nitroglycerin 0.4 mg sublingual 0.4 mg sublingual Q5M PRN chest 08/23/23 tablet pain #30 tabs Allergies Allergy/AdvReac Type Severity Reaction Status Date / Time No Known Drug Allergies Allergy Verified 08/20/23 21:47 Opioid HPI Opioid Management Most Recent Opioid Data: Last Pain Scale 10 12/04/24, 23:11 Last Pain Intensity 0 10/11/23, 16:32 Last MAR Pain Assessment 12/04/24, 23:11 Last ORT Total Score 13 05/20/24, 08:42 Last ORT Risk Category High Risk 05/20/24, 08:42 Ur Phencyclidine Scrn, (NEGATIVE) Negative 06/10/23, 09:30 [facility] Medical History (Updated 12/05/24 @ 00:25 by Socorro Dawson MD) GERD (gastroesophageal reflux disease) ?K21.9 - Gastro-esophageal reflux disease without esophagitis (ICD-10) Chronic combined systolic (congestive) and diastolic (congestive) heart failure ?I50.42 - Chronic combined systolic (congestive) and diastolic (congestive) heart failure (ICD-10) Anxiety ?F41.9 - Anxiety disorder, unspecified (ICD-10) Acute hypoxemic respiratory failure ?J96.01 - Acute respiratory failure with hypoxia (ICD-10) Acute exacerbation of chronic obstructive pulmonary disease (COPD) ?J44.1 - Chronic obstructive pulmonary disease with (acute) exacerbation (ICD-10) COVID-19 ?U07.1 - COVID-19 (ICD-10) Hypothyroid ?E03.9 - Hypothyroidism, unspecified (ICD-10) HLD (hyperlipidemia) ?E78.5 - Hyperlipidemia, unspecified (ICD-10) Acute exacerbation of chronic obstructive pulmonary disease ?J44.1 - Chronic obstructive pulmonary disease with (acute) exacerbation (ICD-10) Hypertensive emergency ?I16.1 - Hypertensive emergency (ICD-10) Acute gastroenteritis ?K52.9 - Noninfective gastroenteritis and colitis, unspecified (ICD-10) Hypoxemia ?R09.02 - Hypoxemia (ICD-10) Chest pain ?R07.9 - Chest pain, unspecified (ICD-10) Coronary artery disease ?I25.10 - Atherosclerotic heart disease of [place] coronary artery without angina pectoris (ICD-10) Elevated troponin ?R79.89 - Other specified abnormal findings of blood chemistry (ICD-10) Pneumonia ?J18.9 - Pneumonia, unspecified organism (ICD-10) Anxiety ?F41.9 - Anxiety disorder, unspecified (ICD-10) Acute kidney injury ?N17.9 - Acute kidney failure, unspecified (ICD-10) Acute anxiety ?F41.9 - Anxiety disorder, unspecified (ICD-10) Pacemaker ?Z95.0 - Presence of cardiac pacemaker (ICD-10) Iron deficiency anemia ?D50.9 - Iron deficiency anemia, unspecified (ICD-10) COPD (chronic obstructive pulmonary disease) ?J44.9 - Chronic obstructive pulmonary disease, unspecified (ICD-10) Hypoxia ?R09.02 - Hypoxemia (ICD-10) Dyspnea ?R06.00 - Dyspnea, unspecified (ICD-10) Elevated brain natriuretic peptide (BNP) level ?R79.89 - Other specified abnormal findings of blood chemistry (ICD-10) Hypertension ?I10 - Essential (primary) hypertension (ICD-10) Elevated troponin ?R79.89 - Other specified abnormal findings of blood chemistry (ICD-10) Acute dyspnea ?R06.00 - Dyspnea, unspecified (ICD-10) IBS (irritable bowel syndrome) ?K58.9 - Irritable bowel syndrome without diarrhea (ICD-10) Anxiety ?F41.9 - Anxiety disorder, unspecified (ICD-10) Heart attack ?I21.9 - Acute myocardial infarction, unspecified (ICD-10) Sciatic leg pain ?M54.30 - Sciatica, unspecified side (ICD-10) Herniated disc, cervical ?M50.20 - Other cervical disc displacement, unspecified cervical region (ICD-10) Surgical History History of appendectomy ?Z90.49 - Acquired absence of other specified parts of digestive tract (ICD-10) History of heart artery stent ?Z95.5 - Presence of coronary angioplasty implant and graft (ICD-10) Family History (Updated 05/04/24 @ 10:45 by Amanda Remy) Mother Family history of CHF (congestive heart failure) Family history of hypertension Father Family history of CHF (congestive heart failure) Brother Family history of CHF (congestive heart failure) Other Family history of diabetes mellitus Family history of myocardial infarction Social History (Updated 05/21/24 @ 10:49 by Eva Che) Within the past year, how often did you have a drink containing alcohol: monthly or less Smoking status: Light tobacco smoker Nicotine containing products detail: 1 pack/week Non-prescribed substance use: cannabis (any form) Non-prescribed substance use details: smokes marijuana, gummies Previous occupational history: disabled Highest level of school completed/degree received: high school graduate Are you now , , , , never or living with a partner: In a typical week, how many times do you talk on the telephone with family, friends, or neighbors: once per week How often do you get together with friends or relatives: never How often do you attend voodoo or yazidi services: 4 or more times per year Do you belong to any clubs or organizations such as voodoo groups unions, fraternal or athletic groups, or school groups: no Total score: 1 Score interpretation: A score of less than or equal to 1 indicates the most socially isolated. Little interest or pleasure in doing things: not at all Feeling down, depressed, or hopeless: not at all Feel stressed/tense/nervous/anxious/difficulty sleeping: very much Life stressors: financial matters Life stressor details: 2020 lost family Do you think of yourself as: straight/heterosexual Gender Identity: female Exam Constitutional Vital Signs, click to edit/add: Last Vital Signs Temp 98.1 F 12/04/24 20:57 Pulse 93 H 12/04/24 23:30 Resp 22 H 12/04/24 23:30 BP 124/95 H 12/04/24 23:30 Pulse Ox 94 L 12/04/24 23:30 O2 Del Method Room Air 12/04/24 20:57 Course Vital Signs Vital signs: Vital Signs Temperature 98.1 F 12/04/24 20:57 Pulse Rate 96 H 07/24/25 20:57 Respiratory Rate 18 12/04/24 20:57 Blood Pressure 152/110 H 12/04/24 20:57 Pulse Oximetry 98 12/04/24 20:57 Oxygen Delivery Method Room Air 12/04/24 20:57 Temperature 98.1 F 12/04/24 20:57 Pulse Rate 93 H 12/04/24 23:30 Respiratory Rate 22 H 12/04/24 23:30 Blood Pressure 124/95 H 12/04/24 23:30 Pulse Oximetry 94 L 12/04/24 23:30 Oxygen Delivery Method Room Air 12/04/24 20:57 Medical Decision Making MDM Narrative Medical decision making narrative: Patient presents with 1 day history of abdominal pain, nausea, vomiting. Patient denies abdominal pain back pain last bowel movement 2 days ago. Patient denies any blood thinner use. Unable to provide any history of cardiac stenting. Will add CBC CMP troponin EKG chest abdomen pelvis with contrast as patient has abdominal pain back pain. 0.9% saline 1 L and Zofran 4 mg IV. This patient was seen and evaluated in conjunction with the physician assistant store manager sales. She is a 64-year-old female with a history of diabetes and COPD. She has a history of heart disease. She is a poor historian and cannot tell us if she has any stents in her heart or is seeing cardiology. I did review her most recent cardiology consultation which was done on 08/20/2024. At that time it was noted in the chart that she has a history of coronary artery disease with a PCI and stent in the LAD. She also has a history of bradycardia and chronically elevated troponins. She had patent coronary arteries on a coronary angiogram dated 06/2023. The patient presents today with generalized abdominal pain. She states she has a port had a poor appetite recently because her stomach has been upset. She has been nauseated without vomiting or diarrhea. She is tender in her epigastrium. She was noted to be mildly hypotensive according to EMS but her blood pressure was in the 150s over 110s upon arrival. An IV was placed and cardiac [place]up [place]. [place] [address], with a sinus rhythm at 92 bpm with diffusely flattened T waves. She was medicated with IV fluids, Zofran and morphine. She has an elevated white count today at 18.2 with a concentrated hemoglobin of 16. Electrolytes are normal with the exception of an elevated glucose and elevated BUN and creatinine of 26 and 2.56. Lipase is normal at 24. Initial troponin was 78.7 the repeat troponin is 69.6. She admits that she has not been drinking much recently because of the nausea. CT scan of the abdomen pelvis without contrast was ordered and shows no acute findings in the chest with moderate distention of a fluid-filled stomach without any focal inflammatory changes. This was discussed with her. She is agreeable to being admitted. She was given additional IV fluids and Protonix. The case was discussed with the hospitalist and she is accepted for admission. Lab Data Labs: Lab Results 12/04/24 12/04/24 Range/Units 21:29 23:00 WBC 18.2 H (4.0-11.0) 10^3/uL RBC 5.61 H (4.20-5.40) 10^6/uL Hgb 16.0 (12.0-16.0) g/dL Hct 48.9 H (36.0-48.0) % MCV 87.2 (81.0-99.0) fL MCH 28.5 (26.7-34.0) pg MCHC 32.7 (29.9-35.2) g/dL RDW 15.5 H (11.0-15.0) % Plt Count 447 (150-450) 10^3/uL MPV 10.1 (9.5-13.5) fL Seg Neuts % (Manual) 76.0 H (43.0-75.0) Lymphocytes % (Manual) 14.0 L (20.5-60.0) % Monocytes % (Manual) 10.0 (1.7-12.0) % Eosinophils % (Manual) 0.0 L (0.9-7.0) % Basophils % (Manual) 0.0 L (0.2-2.0) % Neutrophils # (Manual) 13.83 H (1.4-6.5) 10^3/uL Lymphocytes # (Manual) 2.54 (1.20-3.80) 10^3/uL Monocytes # (Manual) 1.82 H (0.30-0.80) 10^3/uL Eosinophils # (Manual) 0.00 (0.00-0.70) 10^3/uL Basophils # (Manual) 0.00 (0.00-0.10) 10^3/uL Sodium 133 L (136-145) mmol/L Potassium 4.8 (3.5-5.1) mmol/L Chloride 94 L (98-107) mmol/L Carbon Dioxide 24.5 (21.0-32.0) mmol/L Anion Gap 19.3 BUN 26.0 H (7.0-18.0) mg/dL Creatinine 2.56 H (0.55-1.02) mg/dL Est GFR ( Amer) 23 L (>=60 mL/min/1.73m^2) Est GFR (Non-Af Amer) 19 L (>=60 mL/min/1.73m^2) BUN/Creatinine Ratio 10.2 Glucose 222 H (74-106) mg/dL Calcium 10.9 H (8.5-10.1) mg/dL Magnesium 2.4 (1.8-2.4) mg/dL Total Bilirubin 0.3 (0.2-1.0) mg/dL AST 31 (15-37) U/L ALT 27 (14-59) U/L Alkaline Phosphatase 105 (46-116) U/L Troponin I High Sens 78.7 H* 69.6 H* (4.0-51.3) pg/mL Total Protein 8.8 H (6.4-8.2) g/dL Albumin 4.0 (3.4-5.0) g/dL Globulin 4.8 g/dL Albumin/Globulin Ratio 0.8 Lipase 24.0 (16.0-77.0) U/L Discharge Plan Discharge Chief Complaint: Abdominal Pain Clinical Impression: Abdominal pain, Leukocytosis, Acute kidney injury, Elevated troponin Patient Disposition: Admitted As Inpatient Time of Disposition Decision: 00:25 Condition: Good
[2024-12-04 21:44] LABS: Hematocrit 48.9 % (36.0-48.0); Hemoglobin 16.0 g/dL (12.0-16.0); Mean Corpuscular HGB Conc 32.7 g/dL (29.9-35.2); Mean Corpuscular Hemoglobin 28.5 pg (26.7-34.0); Mean Corpuscular Volume 87.2 fL (81.0-99.0); Platelet Count 447 10^3/uL (150-450); Red Blood Count 5.61 10^6/uL (4.20-5.40); White Blood Count 18.2 10^3/uL (4.0-11.0)
--- OUTSIDE RECORDS SUMMARY | 2024-12-04 21:45 | XMS_ITS | Clinical Summary ---
Author Organization [facility] Address [address] [place] [address] Care Team Providers Care Route Sales Person Name Role Phone Charlie Richardson MD Primary Care Provider [phone] Allergies Active Allergy Reactions Criticality Noted Date Comments Bee Venom Protein (Honey Bee) Hives High 2023 Hay Fever And Allergy Relief 024 House Dust 06/29/2023 Medications ALPRAZolam (Xanax) 1 mg tablet Take 1 mg by mouth Twice daily at 6am and 6pm. Active aspirin 81 mg EC tablet Take 81 mg by mouth in the morning. Active atorvastatin (Lipitor) 80 mg tablet Take 80 mg by mouth in the morning. Active busPIRone (Buspar) 10 mg tablet Take 10 mg by mouth in the morning and at bedtime. Active cyclobenzaprine (Flexeril) 10 mg tablet Take 10 mg by mouth if needed in the morning and at bedtime for muscle spasms. Active dapagliflozin propanediol (Farxiga) 10 mg Take 10 mg by mouth in the morning. Active gabapentin (Neurontin) 300 mg capsule Take 300 mg by mouth in the morning, at noon, and at bedtime. Active traZODone (Desyrel) 50 mg tablet Take 50 mg by mouth at bedtime. Active albuterol 90 mcg/actuation inhaler Inhale 2 puffs every 6 (six) hours if needed for wheezing. Active pantoprazole (ProtoNix) 40 mg EC tablet Take 40 mg by mouth before breakfast. Do not crush, chew, or split. Active furosemide (Lasix) 40 mg tabletIndication s:Acute on chronic heart failure with preserved ejection fraction (CMS/HCC) Take 1 tablet (40 mg) by mouth in the morning. 30 tablet 07/02/2023 Active spironolactone (Aldactone) 25 mg tabletIndication s:Acute on chronic heart failure with preserved ejection fraction (CMS/HCC) Take 1 tablet (25 mg) by mouth in the morning for 30 doses. 30 tablet 07/02/2023 Active levothyroxine (Tirosint) 75 mcg capsule Take 75 mcg by mouth in the morning. Active clopidogrel (Plavix) 75 mg tablet Take 75 mg by mouth in the morning. Active nitroglycerin (Nitrostat) 0.[address] 1 TABLET UNDER TONGUE EVERY 5 MINS, UP TO 3 DOSES NEEDED FOR CHEST PAIN 08/23/2023 Active isosorbide mononitrate ER (Imdur) 30 mg 24 hr tablet Take 30 mg by mouth in the morning. 08/23/2023 Active carvedilol (Coreg) 12.5 mg tablet TAKE 1 TABLET BY MOUTH TWICE A DAY WITH FOOD OR MEAL 08/23/2023 Active Active Problems Problem Noted Date Diagnosed Date Cellulitis and abscess of finger, unspecified 09/10/2023 Dehydration 09/10/2023 09/10/2023 Diarrhea 09/10/2023 09/10/2023 Dog bite 09/10/2023 09/10/2023 Gastroenteritis 09/10/2023 09/10/2023 Nausea & vomiting 09/10/2023 09/10/2023 Sciatic pain 09/10/2023 09/10/2023 Sprain of foot 09/10/2023 09/10/2023 Undifferentiated abdominal pain 09/10/2023 09/10/2023 Failure of pacemaker lead, initial encounter Biventricular cardiac pacemaker malfunction, seq uela 08/10/2023 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 Cardiac pacemaker in situ 07/17/2023 Bradycardia 07/06/2023 Junctional bradycardia 07/05/2023 NSTEMI (non-ST elevated myocardial infarction) 0 06/29/2023 Other forms of angina pectoris 06/29/2023 Hypomagnesemia 06/29/2023 Acute midline low back pain without sciatica Coronary arteriosclerosis 11/24/20212023 Hyperlipidemia 11/24/2021 06/29/2023 Type 2 diabetes mellitus 11/24/2021 024 Acute non-ST segment elevation myocardial infarc tion 11/24/2021 06/29/2023 Cigarette smoker 11/24/2021 06/29/2023 Social History Tobacco Use Types Packs/Day Years Used Date Smoking Tobacco: Every Day Cigarettes 1 42.6 Started: 1982 Tobacco Cessation:Ready to Q uit: Not Asked; Counseling Given: Not Answered [facility] Utilities Answer Date Recorded In the past 12 months has th e 3VR, gas, oil, or water [employer] threatened to shut off services in your home? Yes 08/10/2023 Humiliation, Afraid, Rape, and Kick questionnair e Answer Date Recorded Within the last year, have y ou been afraid of your partner or ex-partner? No 08/10/2023 Emotionally Abused Not on file 08/10/2023 Physically Abused Not on file 08/10/2023 Sexually Abused Not on file 08/10/2023 Overall Financial Resource Strain (CARDIA) Answe r Date Recorded How hard is it for you to pa y for the very basics like food, housing, medical care, and heating? Very hard 08/10/2023 Transportation Answer Date Recorded In the past 12 months, has l ack of transportation kept you from medical appointments or from getting medications? Yes 08/10/2023 Lack of Transportation (Non-Medical) Not on file 08/10/2023 Housing Stability Vital Sign Answer Eliud e Recorded Unable to Pay for Housing in the Last Year Not o n file 08/10/2023 Number of Places Lived in the Last Year Not on f ile 08/10/2023 In the last 12 months, was t here a time when you did not have a steady place to sleep or slept in a penitentiary (including now)? Yes 08/10/2023 Hunger Vital Sign Answer Date Recorded Within the past 12 months, y ou worried that your food would run out before you got the money to buy more. Often true 08/10/19 24 Ran Out of Food in the Last Year Not on file 08/10/2023 Comments Unknown Sex and Gender Information Value Date Recorded Sex Assigned at Female 06/29/2023 12:24 PM EST Legal Sex Female 11:55 PM EDT Gender Identity Female 06/29/2023 12:24 PM EST Sexual Orientation Heterosexual or Straight 06/14 12:24 PM EST Last Filed Vital Signs Vital Sign Reading Time Taken Comments Blood Pressure 125/85 09/10/2023 1:02 PM EDT Pulse 83 09/10/2023 1:02 PM EDT Temperature 35.8 C (96.4 F) 08/11/2023 7:46 AM EDT Respiratory Rate 20 08/11/2023 8:00 AM EDT Oxygen Saturation 97% 09/10/2023 1:02 PM EDT Inhaled Oxygen Concentration - - Weight 82.1 kg (181 lb) 09/10/2023 1:02 PM EDT Height 171.5 cm (5' 7.5 ) 09/10/2023 1:02 PM EDT Body Mass Index 27.93 09/10/2023 1:02 PM EDT Plan of Treatment Health Maintenance Due Date Last Done Comments CT Colonography 1960 Colonoscopy 1961 Colorectal Cancer Screening 1960 FIT-DNA 1961 FIT 1961 FOBT 1960 Medicare Annual Wellness (AWV) 1961 Sigmoidoscopy 1961 Diabetes: Retinopathy Screening 1971 Depression Screening 1973 Diabetes: Urine Protein Screening 1980 Pap Smear 1982 Cervical Cancer Screening 1991 HPV/Cotest 1991 Mammogram 2001 Zoster Vaccines (1 of 2) 2011 Diabetes: Hemoglobin A1C 10/04/2023 024, 06/30/2023, 11/02/2021 COVID-19 Vaccine (2023-2 5 season) 2024 Influenza Vaccine (#1) 2025 , 01/20/2022, 02/11/2021 Adult Tetanus 12/20/2028 12/20/2018 Pneumococcal Vaccine: Pediatrics (0 to 5 Years) and At-Risk Patients (6 to 64 Years) Completed 02/07/2022 HIB Vaccines Aged Out No longer eligi ble based on patient's age to complete this topic HPV Vaccines Aged Out No longer eligi ble based on patient's age to complete this topic IPV Vaccines Aged Out No longer eligi ble based on patient's age to complete this topic Meningococcal B Vaccine Aged Out No l onger eligible based on patient's age to complete this topic Meningococcal Vaccine Aged Out No ashely nitin eligible based on patient's age to complete this topic Rotavirus Vaccines Aged Out No longer eligible based on patient's age to complete this topic Medical Devices Implanted Type Area Registered Nurse Fetal Device Identifier Shelf Expiration Date Model / Serial / Lot Alex Coley S 53, - [id number] - [id number] Implanted:Qty: 1 on 07/10/2023 by Vick Chance MD at [facility] [employer] [id number] 03/13/2025 [id number] / [id number] / LeadAlex S 45 - [id number] - [id number] Implanted:Qty: 1 on 07/10/2023 by Vick Chance MD at [facility] [employer] [id number] 04/12/2025 [id number] / [id number] / Jamilah Garza Dr-T - [id number] - [id number] Implanted:Qty: 1 on 07/10/2023 by Vick Chance MD at [facility] [employer] [id number] 12/11/2024 [id number] / [id number] / Procedures Procedure Name Priority Date/Time Associated Diagnosis Comments HEMOGLOBIN A1C Routine 07/06/2023 2:37 AM EST from Last 3 Months or Most Recently Relevant to Health Maintenance Results * (ABNORMAL) Hemoglobin A1c (07/06/2023 2:37 AM EST) Hemoglobin A1C 6.8(H) 4.0 - 6.0 % 07/06/2023 10:41 AM EST [facility]) Estimated Average Glucose 148 mg/dL 07/06/2023 10:41 AM EST [facility] ([facility]) Blood Venous blood specimen / Unknown Arterial Line / Unknown 07/06/2023 2:37 AM EST 07/06/2023 2:54 AM EST Cici Rizzo MD LAB BLOOD ORDERABLES Final Re sult [facility] ([facility]) [address] [place] [id number] from Last 3 Months or Most Recently Relevant to Health Maintenance Insurance [employer] MEDIC[employer] Advance Directives * Full Code (Latest Code Status on File) Date Activated Date Inactivated Comments 08/10/2023 11:27 AM 08/11/2023 2:08 PM * Full Code Date Activated Date Inactivated Comments 07/06/2023 12:26 AM 07/11/2023 7:17 PM * Full Code Date Activated Date Inactivated Comments 06/29/2023 11:42 AM 07/02/2023 5:14 PM Care Teams Route Sales Person Relationship Specialty Start Date End Date Charlie Richardson MD [address] [place], [place] [address] [address] PCP - General 01/02/22
--- OUTSIDE RECORDS SUMMARY | 2024-12-04 21:45 | XMS_ITS | Clinical Summary ---
Author Organization [facility] Address [address], [address] [place] [address] Care Team Providers Care Photographer Model Name Role Phone Elmer Arellano MD Primary Care Provider Unav ailable Allergies No known active allergies Medications oxyCODONE-aceta minophen (PERCOCET) 5-325 MG per tablet Take 1 tablet by mouth 4 times daily (with meals and nightly). Active ALPRAZolam (XANAX) 1 MG tablet Take 1 mg by mouth 4 times daily (before meals and nightly). Active traMADol (ULTRAM) 50 MG tablet Take 50 mg by mouth 4 times daily (before meals and nightly). Active tiZANidine (ZANAFLEX) 4 MG tablet Take 4 mg by mouth 3 times daily (with meals) Active ondansetron (ZOFRAN) 4 MG tablet Take 1 tablet by mouth every 8 hours as needed for Nausea 20 tablet 09/08/2018 Active dicyclomine (BENTYL) 10 MG capsule Take 1 capsule by mouth every 6 hours as needed (cramps) 20 capsule 09/08/2018 Active Active Problems No known active problems Social History Tobacco Use Types Packs/Day Years Used Date Smoking Tobacco: Every Day Smokeless Tobacco: Never Comments No Sex and Gender Information Value Date Recorded Sex Assigned at Not on file Legal Sex Female 5:20 PM EDT Gender Identity Not on file Sexual Orientation Not on file Last Filed Vital Signs Vital Sign Reading Time Taken Comments Blood Pressure 110/94 09/08/2018 7:43 PM EDT Pulse 88 09/08/2018 7:43 PM EDT Temperature 37.4 C (99.3 F) 09/08/2018 7:43 PM EDT Respiratory Rate 18 09/08/2018 7:43 PM EDT Oxygen Saturation 98% 09/08/2018 7:43 PM EDT Inhaled Oxygen Concentration - - Weight 68 kg (150 lb) 09/08/2018 5:30 PM EDT Height - - Body Mass Index - - Plan of Treatment Not on file Insurance 500 & 05/15 [place] [id number] MEDICARE Care Teams Photographer Model Relationship Specialty Start Date End Date Elmer Arellano MD [address] [place] [address] PCP - General Internal Medicine 09/08/18
--- OUTSIDE RECORDS SUMMARY | 2024-12-04 21:45 | XMS_ITS | Clinical Summary ---
Author Organization [facility] Address [address] [place] [address] Care Team Providers Care Mining Captain Name Role Phone Charlie Richardson MD Primary Care Provider [phone] Social History Tobacco Use Types Packs/Day Years Used Date Smoking Tobacco: Never Assessed Comments Unknown Sex and Gender Information Value Date Recorded Sex Assigned at Not on file Legal Sex Female 8:25 PM EDT Gender Identity Not on file Sexual Orientation Not on file Last Filed Vital Signs Vital Sign Reading Time Taken Comments Blood Pressure 140/78 10/14/2019 12:00 PM EDT Pulse - - Temperature - - Respiratory Rate - - Oxygen Saturation - - Inhaled Oxygen Concentration - - Weight 68 kg (150 lb) 10/14/2019 12:00 PM EDT Height 172.7 cm (5' 8 ) 10/14/2019 12:00 PM EDT Body Mass Index 22.81 10/14/2019 12:00 PM EDT Plan of Treatment Not on file Insurance [employer] MEDICARE Care Teams Mining Captain Relationship Specialty Start Date End Date Charlie Richardson MD PCP - General Family Medicine 09/03/24
--- OUTSIDE RECORDS SUMMARY | 2024-12-04 21:45 | XMS_ITS | Encounter Summary ---
Author Organization [facility] Address [address] [place] [address] Care Team Providers Care Dobby Looms Pegger Name Role Phone Екатерина Robert MD Primary Care Provider [phone] Encounter Details Date Type Department Care Team (Late st Contact Info) Description 07/29/2023 Clinisync Result Encounter [facility] Unsolicited Ochoa Solorio, [place] [address] [place] [address] Social History Tobacco Use Types Packs/Day Years Used Date Smoking Tobacco: Never Assessed Comments Unknown Sex and Gender Information Value Date Recorded Sex Assigned at Not on file Legal Sex Female 8:25 PM EDT Gender Identity Not on file Sexual Orientation Not on file documented as of this encounter Plan of Treatment Not on file documented as of this encounter Procedures Procedure Name Priority Date/Time Associated Diagnosis Comments ECG 12-LEAD 07/29/2023 4:02 PM EDT documented in this encounter Results * ECG 12-LEAD (07/29/2023 4:02 PM EDT) Anatomical Region Laterality Modality Other 07/29/2023 4:02 PM EDT Narrative 07/31/2023 10:51 PM EDT The [address] [address] Electrocardiograph Report Signed Patient: VIVIAN VANN MR#: [id number] : 1960 Acct:[id number] Age/Sex: 63 / F ADM Date: 07/29/23 Loc: [place] 231-[address]: Екатерина Robert M.D. Ordering Physician: Ochoa Solorio Date of Service: 07/29/23 Procedure(s): ECG 12 lead Accession Number(s): [id number] cc: [facility] Test Date: 2023-07-29 Pat Name: VIVIAN VANN Department: Room: - Gender: Female Photographic Intelligence Officer: : 1960 Requested By: ЕКАТЕРИНА ROBERT Order Number: [id number] Reading MD: PACO BOLIVAR Measurements Intervals [place] Rate: 95 P: -96093 GA: -62404 QRS: 24 QRSD: 66 T: 120 QT: 298 QTc: 351 Interpretive Statements 1400 Undetermined rhythm (Possible supraventricular rhythm) 4068 Nonspecific Twave abnormality 8305 Short QTc interval 9150 abnormal ECG Compared to ECG 07/24/2023 05:55:36 Atrial-paced complex(es) or rhythm no longer present Possible ischemia no longer present Electronically Signed On 07-31-2023 22:51:27 EDT by PACO BOLIVAR Dictated By: Paco Bolivar D.O. Signed By: 07/31/232250 DD/ 1602 TD/TT: Horse Racing Analyst: Procedure Note Radiology, Radiologist, MD - 07/31/2023 [place] [id number] Electrocardiograph Report Signed Patient: VIVIAN VANN AMR#: [id number] : 2Acct:[id number] Age/Sex: 63 / FADM Date: 07/29/23 Loc: [place] 231-[address]: Екатерина Robert M.D. Ordering Physician: Ochoa Solorio Date of Service: 07/29/23 Procedure(s): ECG 12 lead Accession Number(s): [id number] cc: [facility] Test Date: 2023-07-29 Pat Name: VIVIAN VANN Department: Room: - Gender: Female Photographic Intelligence Officer: : 1960 Requested By: ЕКАТЕРИНА ROBERT Order Number: [id number] Reading MD: PACO BOLIVAR Measurements Intervals [place] Rate: 95 P: -18485 GA: -71516 QRS: 24 QRSD: 66 T: 120 QT: 298 QTc: 351 Interpretive Statements 1400 Undetermined rhythm (Possible supraventricular rhythm) 4068 Nonspecific Twave abnormality 8305 Short QTc interval 9150 abnormal ECG Compared to ECG 07/24/2023 05:55:36 Atrial-paced complex(es) or rhythm no longer present Possible ischemia no longer present Electronically Signed On 07-31-2023 22:51:27 EDT by PACO BOLIVAR Dictated By: Paco Bolivar D.O. Signed By:07/31/23 2421 DD/ 1602 TD/TT: Horse Racing Analyst: us [facility] Final Resul t documented in this encounter Visit Diagnoses Not on filedocumented in this encounter Care Teams Dobby Looms Pegger Relationship Specialty Start Date End Date Екатерина Robert MD PCP - General Family Medicine 09/03/24 documented as of this encounter
[2024-12-04 21:47] LABS: Lipase 24.0 U/L (16.0-77.0); Magnesium 2.4 mg/dL (1.8-2.4)
--- OUTSIDE RECORDS SUMMARY | 2024-12-04 21:48 | XMS_ITS | CCD ---
Author Organization [facility] ion [facility] Care Team Providers Care Press Pipe Inspector Name Role Phone KEISHA DORADO JR Attending [...] Admitting Unavailable GANGWANI, BARRETT LARSON Consulting Unavailab DANTUA Connors Attending Unavailable VINAY CHAPA Referring Unavailable [...] source) bee venom Drug allergy (disorder) 1 [facility] Repository (1 source) house dust allergenic extract; 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: [HOUSE DUST] Drug Allergy 4 [facility] Repository (1 source) BEE VENOM PROTEIN (HONEY BEE); 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: [BEE VENOM PROTEIN (HONEY BEE)] Propensity to adverse reactions to drug (disorder) 4 [facility] Repository (1 source) HAY FEVER AND ALLERGY RELIEF; 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: [HAY FEVER AND ALLERGY RELIEF] Propensity to adverse reactions to drug (disorder) 4 [facility] Repository Medications Current Medications Medication Drug [...] oral solution (2 sources) alpha-Adrenergic Agonist, Uncompetitive R-amfhdo-F-aspart ate Receptor Antagonist, Sigma-1 Agonist Start: 08-10-19 [...] day(s), # 14 tab(s), Refills(s) 0, Pharmacy: [facility] 1155, 170.2, cm, 08/09/22 13:13:00 EDT, [...] 15 tab(s), Refills(s) 0, Pharmacy: [facility] 1155, 170.2, cm, 08/09/22 13:13:00 EDT, [...] disease (6 sources) Atherosclerotic heart disease of [place] coronary artery without angina pectoris; 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: [Old [...] 2 Chronic Other aftercare (1 source) Other penitentiary (current) drug therapy; 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: [OTH SHELTER CURRENT DRUG THERAPY] Onset: 3 Episodic Other aftercare (1 source) penitentiary (current) use of aspirin; 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: [CHECKER CURRENT USE OF ASPIRIN] Onset: 3 Episodic Other aftercare (1 source) 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) use of antithrombotics/antipl atelets; 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: [SHELTER ANTITHROMBOT/ANTIPLATL ETS] Onset: 3 Episodic Other aftercare (1 source) penitentiary (current) use of oral hypoglycemic drugs; 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: [CHECKER USE ORAL HYPOGLYCEMIC DX] Onset: 3 Episodic [...] Range Facility Office Visiton 09-10-2023 Follow-up visit [id number] Vivian Vann 1960 F Date Provider Department Center 09/10/2023 [id number], EHAB CARD Deirdre Hos No family history on file Level of Service:13665 HI OFFICE/OUTPATIENT ESTABLISHED LOW MDM 20 MIN Normal [facility] 30on 08-11-2023 30 Daily Case Managemen t Update Multidisciplinary rounds have been completed. Barriers to Discharge: Patient is medically ready for discharge at this time. AVS has been completed. Patient will discharge to home. No further OTM needs at this time. [facility] will continue to follow patient through [...] appropriate for patient?: Yes New Consults: Normal [facility] 30 The patient is Moderately Stable [...] and maintained or improved Outcome: Progressing Normal [facility] BASIC METABOLIC PANELon 07-14 Anion gap [Moles/Vol] 13 mmol/L Normal 7-20 [facility] Comment on above: Performed By: #### L [id number] ####[facility] [place] [address] Calcium [Mass/Vol] 9.0 mg/dL Normal 8.6-10.3 [facility] Comment on above: Performed By: #### L [id number] ####[facility] [place] [address] Chloride [Moles/Vol] 97 mmol/L Low 98-107 [facility] Comment on above: Performed By: #### L [id number] ####[facility] [place] [address] CO2 [Moles/Vol] 29 mmol/L Normal 21-31 [facility] Comment on above: Performed By: #### L [id number] ####[facility] ([facility])[address] [place] [address] Creatinine [Mass/Vol] 1.06 mg/dL Normal 0.60-1.20 [facility] Comment on above: Performed By: #### L [id number] ####[facility] ([facility])[address] [place] [address] GLOMERULAR FILTRATION RATE ML/MIN/1.73 SQ M.PREDICTED 59.4 mL/min/1.73m*2 Low >60.[address] [facility] Comment on above: Result Comment: The [facility]???s estimated glomerular filtration rate (eGFR) will [...] of individuals. Performed By: #### L [id number] ####[facility] ([facility])[address] [place] [address] Glucose [Mass/Vol] 178 mg/dL High 70-100 [facility] Comment on above: Performed By: #### L [id number] ####[facility] ([facility])[address] [place] [address] Potassium [Moles/Vol] 4.3 mmol/L Normal 3.5-5.1 [facility] Comment on above: Performed By: #### L [id number] ####[facility] ([facility])[address] [place] [address] Sodium [Moles/Vol] 135 mmol/L Low 136-145 [facility] Comment on above: Performed By: #### L [id number] ####[facility] ([facility])[address] [place] [address] Urea nitrogen [Mass/Vol] 20 mg/dL Normal 7-25 [facility] Comment on above: Performed By: #### L [id number] ####[facility])[address] [place] [address] UREA NITROGEN/CREATININE (MASS RATIO) IN SER/PLAS 18.9 Normal [facility] Comment on above: Performed By: #### L [id number] ####[facility] [place] [address] CBCon 08-11-2023 Erythrocyte distribution width (RBC) [Ratio] 17.0 % High 11.5-15.0 [facility] Comment on above: Performed By: #### L [id number] #### [facility] [address] [place] [address] ERYTHROCYTE MEAN CORPUSCULAR HEMOGLOBIN CONCENTRATION (G/DL) BY AUTOMATED 31.6 g/dL Low 32.0-35.0 [facility] Comment on above: Performed By: #### L [id number] #### [facility] ([facility] [address] [place] [address] Hematocrit (Bld) [Volume fraction] 40.8 % Normal 36.0-48.0 [facility] Comment on above: Performed By: #### L [id number] #### [facility]) [address] [place] [address] Hemoglobin (Bld) [Mass/Vol] 12.9 g/dL Normal 12.0-15.0 [facility] Comment on above: Performed By: #### L [id number] #### [facility]) [address] [place] [address] MCH (RBC) [Entitic mass] 28.0 pg Normal 27.0-33.0 [facility] Comment on above: Performed By: #### L [id number] #### [facility]) [address] [place] [address] MCV (RBC) [Entitic vol] 88.5 fL Normal 82.0-98.0 [facility] Comment on above: Performed By: #### L [id number] #### [facility] ([facility]) [address] [place] [address] PLATELETS (10*3/UL) IN BLOOD AUTOMATED COUNT 239 10*3/uL Normal 150-400 [facility] Comment on above: Performed By: #### L [id number] #### [facility] ([facility]) [address] [place] [address] RBC (Bld) [#/Vol] 4.61 10*6/uL Normal 3.80-5.00 [facility] Comment on above: Performed By: #### L [id number] #### [facility] ([facility]) [address] [place] [address] WBC (Bld) [#/Vol] 7.21 10*3/uL Normal 4.00-10.60 [facility] Comment on above: Performed By: #### L [id number] #### [facility] ([facility]) [address] [place] [address] NURSNOTEon 08-11-2023 NURSNOTE Pt discharged via wheelchair without incident [facility] NURSNOTE AVS reviewed with patient, pt verifies understanding Normal [facility] 08-10-2023 30 The patient is Moderately [...] and maintained or improved Outcome: Progressing Normal [facility] HPon 08-10-2023 History Of Present Illness [...] initial encounter Reposition lead Loree Chance MD [facility] NURSNOTEon 08-10-2023 NURSNOTE CHG wipes and betadine nasal swabs completed. [facility] 07-13-2023 36 Pts phone line is no t working [facility] 07-12-2023 36 Unable to reach pt o r leave message, phone line not in service [facility] 36 Patients phone is no t in working order. Tried calling pts ER contact but it is a food pantry and was only a VM option. Did not leave message. [facility] 07-11-2023 30 The patient is Moderately Stable - Low risk of patient condition declining or worsening The patient's goals for the shift include pain control The clinical goals for the shift include maintain pacemaker precautions Over the shift, the patient did not make progress toward the following goals. Barriers to progression include na. Recommendations to address these barriers include na. [facility] 30 The patient is Moderately Stable [...] safe level of function Outcome: Progressing Normal [facility] BASIC METABOLIC PANELon - Anion gap [Moles/Vol] 15 mmol/L Normal 7-20 [facility] Comment on above: Performed By: #### L [id number] #### [facility] ([facility]) [address] [place] [address] Calcium [Mass/Vol] 9.4 mg/dL Normal 8.6-10.3 [facility] Comment on above: Performed By: #### L [id number] #### [facility]) [address] [place] [address] Chloride [Moles/Vol] 97 mmol/L Low 98-107 [facility] Comment on above: Performed By: #### L [id number] #### [facility] ([facility]) [address] [place] [address] CO2 [Moles/Vol] 27 mmol/L Normal 21-31 [facility] Comment on above: Performed By: #### L [id number] #### [facility]) [address] [place] [address] Creatinine [Mass/Vol] 1.15 mg/dL Normal 0.60-1.20 [facility] Comment on above: Performed By: #### L [id number] #### [facility] ([facility]) [address] [place] [address] GLOMERULAR FILTRATION RATE ML/MIN/1.73 SQ M.PREDICTED 53.9 mL/min/1.73m*2 Low >60.[address] [facility] Comment on above: Result Comment: The [facility]???s estimated glomerular filtration rate (eGFR) will [...] individuals. Performed By: #### L [id number] #### [facility] ([facility]) [address] [place] [address] Glucose [Mass/Vol] 143 mg/dL High 70-100 [facility] Comment on above: Performed By: #### L [id number] #### [facility] ([facility]) [address] [place] [address] Potassium [Moles/Vol] 3.9 mmol/L Normal 3.5-5.1 [facility] Comment on above: Performed By: #### L [id number] #### [facility] ([facility]) [address] [place] [address] Sodium [Moles/Vol] 135 mmol/L Low 136-145 [facility] Comment on above: Performed By: #### L [id number] #### [facility] ([facility]) [address] [place] [address] Urea nitrogen [Mass/Vol] 32 mg/dL High 7-25 [facility] Comment on above: Performed By: #### L [id number] #### [facility] ([facility]) [address] [place] [address] UREA NITROGEN/CREATININE (MASS RATIO) IN SER/PLAS 27.8 Normal [facility] Comment on above: Performed By: #### L [id number] #### [facility] ([facility]) [address] [place] [address] CBC WITH AUTO DIFFERENTIALon 07-11-2023 Basophils (Bld) [#/Vol] 0.03 10*3/uL Normal 0.00-0.20 [facility] Comment on above: Performed By: #### L [id number] #### [facility] ([facility]) [address] [place] [address] Basophils/100 WBC (Bld) 0.3 % Normal 0.0-1.0 [facility] Comment on above: Performed By: #### L [id number] #### [facility] ([facility]) [address] [place] [address] Eosinophils (Bld) [#/Vol] 0.32 10*3/uL Normal 0.00-0.50 [facility] Comment on above: Performed By: #### L [id number] #### [facility] ([facility]) [address] [place] [address] Eosinophils/100 WBC (Bld) 2.8 % Normal 0.0-6.0 [facility] Comment on above: Performed By: #### L [id number] #### [facility] ([facility]) [address] [place] [address] Erythrocyte distribution width (RBC) [Ratio] 15.3 % High 11.5-15.0 [facility] Comment on above: Performed By: #### L [id number] #### [facility] ([facility]) [address] [place] [address] ERYTHROCYTE MEAN CORPUSCULAR HEMOGLOBIN CONCENTRATION (G/DL) BY AUTOMATED 32.0 g/dL Normal 32.0-35.0 [facility] Comment on above: Performed By: #### L [id number] #### [facility] [address] [place] [address] Hematocrit (Bld) [Volume fraction] 40.9 % Normal 36.0-48.0 [facility] Comment on above: Performed By: #### L [id number] #### [facility] ([facility]) [address] [place] [address] Hemoglobin (Bld) [Mass/Vol] 13.1 g/dL Normal 12.0-15.0 [facility] Comment on above: Performed By: #### L [id number] #### [facility] ([facility]) [address] [place] [address] Immature granulocytes (Bld) [#/Vol] 0.04 10*3/uL Normal 0.00-0.20 [facility] Comment on above: Performed By: #### L [id number] #### [facility] ([facility]) [address] [place] [address] Immature granulocytes/100 WBC (Bld) 0.3 % Normal 0.0-1.0 [facility] Comment on above: Performed By: #### L [id number] #### [facility] ([facility]) [address] [place] [address] Lymphocytes (Bld) [#/Vol] 3.16 10*3/uL Normal 1.20-4.00 [facility] Comment on above: Performed By: #### L [id number] #### [facility] ([facility]) [address] [place] [address] Lymphocytes/100 WBC (Bld) 27.4 % Normal 20.0-45.0 [facility] Comment on above: Performed By: #### L [id number] #### [facility] [address] [place] [address] MCH (RBC) [Entitic mass] 27.9 pg Normal 27.0-33.0 [facility] Comment on above: Performed By: #### L [id number] #### [facility]) [address] [place] [address] MCV (RBC) [Entitic vol] 87.0 fL Normal 82.0-98.0 [facility] Comment on above: Performed By: #### L [id number] #### [facility]) [address] [place] [address] Monocytes (Bld) [#/Vol] 0.85 10*3/uL Normal 0.10-1.00 [facility] Comment on above: Performed By: #### L [id number] #### [facility]) [address] [place] [address] Monocytes/100 WBC (Bld) 7.4 % Normal 5.0-12.0 [facility] Comment on above: Performed By: #### L [id number] #### [facility]) [address] [place] [address] Neutrophils (Bld) [#/Vol] 7.12 10*3/uL Normal 1.60-7.60 [facility] Comment on above: Performed By: #### L [id number] #### [facility] ([facility]) [address] [place] [address] Neutrophils/100 WBC (Bld) 61.8 % Normal 40.0-72.0 [facility] Comment on above: Performed By: #### L [id number] #### [facility] ([facility]) [address] [place] [address] NRBC (PER 100 WBCS) BY AUTOMATED COUNT 0.0 % Normal 0 [facility] Comment on above: Performed By: #### L [id number] #### [facility]) [address] [place] [address] PLATELETS (10*3/UL) IN BLOOD AUTOMATED COUNT 339 10*3/uL Normal 150-400 [facility] Comment on above: Performed By: #### L [id number] #### [facility]) [address] [place] [address] RBC (Bld) [#/Vol] 4.70 10*6/uL Normal 3.80-5.00 [facility] Comment on above: Performed By: #### L [id number] #### [facility]) [address] [place] [address] WBC (Bld) [#/Vol] 11.52 10*3/uL High 4.00-10.60 [facility] Comment on above: Performed By: #### L [id number] #### [facility] (BEAKER) [address] [place] [address] 30on 07-10-2023 30 Problem: Pain - Adul [...] complex ne (more content not included)... Normal [facility] 30 Daily Case Managemen t Update [...] Consultation Consultation and Management 07/06/23 1050 Normal [facility] 30 The patient is Moderately Stable [...] and behaviors that affect risk of falls [place] fall precautions as indicated by assessment Educate [...] and prevent overall improvement and discharge Normal [facility] BASIC METABOLIC PANELon - Anion gap [Moles/Vol] 13 mmol/L Normal 7-20 [facility] Comment on above: Performed By: #### L [id number] ####[facility] ([facility])[address] [place] [address] Calcium [Mass/Vol] 9.9 mg/dL Normal 8.6-10.3 [facility] Comment on above: Performed By: #### L [id number] ####[facility] ([facility])[address] [place] [address] Chloride [Moles/Vol] 97 mmol/L Low 98-107 [facility] Comment on above: Performed By: #### L [id number] ####[facility] ([facility])[address] [place] [address] CO2 [Moles/Vol] 30 mmol/L Normal 21-31 [facility] Comment on above: Performed By: #### L [id number] ####[facility] (BEAKER)[address] [place] [address] Creatinine [Mass/Vol] 1.06 mg/dL Normal 0.60-1.20 [facility] Comment on above: Performed By: #### L [id number] ####[facility])[address] [place] [address] GLOMERULAR FILTRATION RATE ML/MIN/1.73 SQ M.PREDICTED 59.4 mL/min/1.73m*2 Low >60.[address] [facility] Comment on above: Result Comment: [facility]???s estimated glomerular filtration rate (eGFR) will [...] of individuals. Performed By: #### L [id number] ####[facility] ([facility])[address] [place] [address] Glucose [Mass/Vol] 139 mg/dL High 70-100 [facility] Comment on above: Performed By: #### L [id number] ####[facility] ([facility])[address] [place] [address] Potassium [Moles/Vol] 3.9 mmol/L Normal 3.5-5.1 [facility] Comment on above: Performed By: #### L [id number] ####[facility] ([facility])[address] [place] [address] Sodium [Moles/Vol] 136 mmol/L Normal 136-145 [facility] Comment on above: Performed By: #### L [id number] ####[facility] [place] [address] Urea nitrogen [Mass/Vol] 23 mg/dL Normal 7-25 [facility] Comment on above: Performed By: #### L [id number] ####[facility] [place] [address] UREA NITROGEN/CREATININE (MASS RATIO) IN SER/PLAS 21.7 Normal [facility] Comment on above: Performed By: #### L [id number] ####[facility] ([facility])[address] [place] [address] CBC WITH AUTO DIFFERENTIALon 07-10-2023 Basophils (Bld) [#/Vol] 0.02 10*3/uL Normal 0.00-0.20 [facility] Comment on above: Performed By: #### L [id number] ####[facility] (BEAKER)[address] [place] [address] Basophils/100 WBC (Bld) 0.2 % Normal 0.0-1.0 [facility] Comment on above: Performed By: #### L [id number] ####[facility])[address] [place] [address] Eosinophils (Bld) [#/Vol] 0.53 10*3/uL High 0.00-0.50 [facility] Comment on above: Performed By: #### L [id number] ####[facility])[address] [place] [address] Eosinophils/100 WBC (Bld) 5.0 % Normal 0.0-6.0 [facility] Comment on above: Performed By: #### L [id number] ####[facility])[address] [place] [address] Erythrocyte distribution width (RBC) [Ratio] 15.3 % High 11.5-15.0 [facility] Comment on above: Performed By: #### L [id number] ####[facility])[address] [place] [address] ERYTHROCYTE MEAN CORPUSCULAR HEMOGLOBIN CONCENTRATION (G/DL) BY AUTOMATED 32.9 g/dL Normal 32.0-35.0 [facility] Comment on above: Performed By: #### L [id number] ####[facility])[address] [place] [address] Hematocrit (Bld) [Volume fraction] 42.6 % Normal 36.0-48.0 [facility] Comment on above: Performed By: #### L [id number] ####[facility])[address] [place] [address] Hemoglobin (Bld) [Mass/Vol] 14.0 g/dL Normal 12.0-15.0 [facility] Comment on above: Performed By: #### L [id number] ####[facility] [place] [address] Immature granulocytes (Bld) [#/Vol] 0.02 10*3/uL Normal 0.00-0.20 [facility] Comment on above: Performed By: #### L [id number] ####[facility] ([facility])[address] [place] [address] Immature granulocytes/100 WBC (Bld) 0.2 % Normal 0.0-1.0 [facility] Comment on above: Performed By: #### L [id number] ####[facility] ([facility])[address] [place] [address] Lymphocytes (Bld) [#/Vol] 3.34 10*3/uL Normal 1.20-4.00 [facility] Comment on above: Performed By: #### L [id number] ####[facility] [place] [address] Lymphocytes/100 WBC (Bld) 31.7 % Normal 20.0-45.0 [facility] Comment on above: Performed By: #### L [id number] ####[facility] [place] [address] MCH (RBC) [Entitic mass] 28.3 pg Normal 27.0-33.0 [facility] Comment on above: Performed By: #### L [id number] ####[facility] [place] [address] MCV (RBC) [Entitic vol] 86.2 fL Normal 82.0-98.0 [facility] Comment on above: Performed By: #### L [id number] ####[facility] ([facility] [place] [address] Monocytes (Bld) [#/Vol] 0.60 10*3/uL Normal 0.10-1.00 [facility] Comment on above: Performed By: #### L [id number] ####[facility] [address] Monocytes/100 WBC (Bld) 5.7 % Normal 5.0-12.0 [facility] Comment on above: Performed By: #### L [id number] ####[facility] [address] Neutrophils (Bld) [#/Vol] 6.01 10*3/uL Normal 1.60-7.60 [facility] Comment on above: Performed By: #### L [id number] ####[facility] ([facility])[address] [address] Neutrophils/100 WBC (Bld) 57.2 % Normal 40.0-72.0 [facility] Comment on above: Performed By: #### L [id number] ####[facility] ([facility])[address] [address] NRBC (PER 100 WBCS) BY AUTOMATED COUNT 0.0 % Normal 0 [facility] Comment on above: Performed By: #### L [id number] ####[facility] ([facility])[address] [address] PLATELETS (10*3/UL) IN BLOOD AUTOMATED COUNT 329 10*3/uL Normal 150-400 [facility] Comment on above: Performed By: #### L [id number] ####[facility] ([facility])[address] [address] RBC (Bld) [#/Vol] 4.94 10*6/uL Normal 3.80-5.00 [facility] Comment on above: Performed By: #### L [id number] ####[facility] ([facility] [address] WBC (Bld) [#/Vol] 10.52 10*3/uL Normal 4.00-10.60 [facility] Comment on above: Performed By: #### L [id number] ####[facility] ([facility])[address] [place] [address] on 07-10-2023 History Of Present Illness Vivian [...] Problems: Junctional bradycardia Pacemaker Loree Chance MD [facility] 30on 07-09-2023 30 Problem: Cardiovascular - [...] the shift include pacemaker placement without issues [facility] 30 Daily Case Managemen t Update [...] Consultation Consultation and Management 02/23/24 1050 Normal [facility] BASIC METABOLIC PANELon 02-2 Anion gap [Moles/Vol] 9 mmol/L Normal 7-20 [facility] Comment on above: Performed By: #### L [id number] #### [facility] ([facility]) [address] [place] [address] Calcium [Mass/Vol] 9.1 mg/dL Normal 8.6-10.3 [facility] Comment on above: Performed By: #### L [id number] #### [facility] ([facility] [address] [place] [address] Chloride [Moles/Vol] 99 mmol/L Normal 98-107 [facility] Comment on above: Performed By: #### L [id number] #### [facility] ([facility] [address] [place] [address] CO2 [Moles/Vol] 32 mmol/L High 21-31 [facility] Comment on above: Performed By: #### L [id number] #### [facility] [address] [place] [address] Creatinine [Mass/Vol] 0.98 mg/dL Normal 0.60-1.20 [facility] Comment on above: Performed By: #### L [id number] #### [facility] [address] [place] [address] GLOMERULAR FILTRATION RATE ML/MIN/1.73 SQ M.PREDICTED 65.3 mL/min/1.73m*2 Normal >60.[address] [facility] Comment on above: Result Comment: [facility]???s estimated glomerular filtration rate (eGFR) will [...] individuals. Performed By: #### L [id number] #### [facility] ([facility]) [address] [place] [address] Glucose [Mass/Vol] 131 mg/dL High 70-100 [facility] Comment on above: Performed By: #### L [id number] #### [facility] ([facility]) [address] [place] [address] Potassium [Moles/Vol] 4.3 mmol/L Normal 3.5-5.1 [facility] Comment on above: Performed By: #### L [id number] #### [facility] ([facility]) [address] [place] [address] Sodium [Moles/Vol] 136 mmol/L Normal 136-145 [facility] Comment on above: Performed By: #### L [id number] #### [facility] ([facility]) [address] [place] [address] Urea nitrogen [Mass/Vol] 23 mg/dL Normal 7-25 [facility] Comment on above: Performed By: #### L [id number] #### [facility] ([facility]) [address] [place] [address] UREA NITROGEN/CREATININE (MASS RATIO) IN SER/PLAS 23.5 Normal [facility] Comment on above: Performed By: #### L [id number] #### [facility] ([facility]) [address] [place] [address] CBC WITH AUTO DIFFERENTIALon 07-09-2023 Basophils (Bld) [#/Vol] 0.03 10*3/uL Normal 0.00-0.20 [facility] Comment on above: Performed By: #### L [id number] #### [facility] ([facility]) [address] [place] [address] Basophils/100 WBC (Bld) 0.3 % Normal 0.0-1.0 [facility] Comment on above: Performed By: #### L [id number] #### [facility] ([facility] [address] [place] [address] Eosinophils (Bld) [#/Vol] 0.54 10*3/uL High 0.00-0.50 [facility] Comment on above: Performed By: #### L [id number] #### [facility] ([facility]) [address] [place] [address] Eosinophils/100 WBC (Bld) 4.9 % Normal 0.0-6.0 [facility] Comment on above: Performed By: #### L [id number] #### [facility] ([facility]) [address] [place] [address] Erythrocyte distribution width (RBC) [Ratio] 15.0 % Normal 11.5-15.0 [facility] Comment on above: Performed By: #### L [id number] #### [facility] ([facility]) [address] [place] [address] ERYTHROCYTE MEAN CORPUSCULAR HEMOGLOBIN CONCENTRATION (G/DL) BY AUTOMATED 32.8 g/dL Normal 32.0-35.0 [facility] Comment on above: Performed By: #### L [id number] #### [facility] ([facility]) [address] [place] [address] Hematocrit (Bld) [Volume fraction] 37.5 % Normal 36.0-48.0 [facility] Comment on above: Performed By: #### L [id number] #### [facility] ([facility]) [address] [place] [address] Hemoglobin (Bld) [Mass/Vol] 12.3 g/dL Normal 12.0-15.0 [facility] Comment on above: Performed By: #### L [id number] #### [facility] ([facility] [address] [place] [address] Immature granulocytes (Bld) [#/Vol] 0.03 10*3/uL Normal 0.00-0.20 [facility] Comment on above: Performed By: #### L [id number] #### [facility] ([facility]) [address] [place] [address] Immature granulocytes/100 WBC (Bld) 0.3 % Normal 0.0-1.0 [facility] Comment on above: Performed By: #### L [id number] #### [facility] ([facility] [address] [place] [address] Lymphocytes (Bld) [#/Vol] 3.76 10*3/uL Normal 1.20-4.00 [facility] Comment on above: Performed By: #### L [id number] #### [facility] ([facility]) [address] [place] [address] Lymphocytes/100 WBC (Bld) 34.1 % Normal 20.0-45.0 [facility] Comment on above: Performed By: #### L [id number] #### [facility] ([facility]) [address] [place] [address] MCH (RBC) [Entitic mass] 28.5 pg Normal 27.0-33.0 [facility] Comment on above: Performed By: #### L [id number] #### [facility] ([facility]) [address] [place] [address] MCV (RBC) [Entitic vol] 87.0 fL Normal 82.0-98.0 [facility] Comment on above: Performed By: #### L [id number] #### [facility] ([facility]) [address] [place] [address] Monocytes (Bld) [#/Vol] 0.64 10*3/uL Normal 0.10-1.00 [facility] Comment on above: Performed By: #### L [id number] #### [facility] ([facility] [address] [place] [address] Monocytes/100 WBC (Bld) 5.8 % Normal 5.0-12.0 [facility] Comment on above: Performed By: #### L [id number] #### [facility]) [address] [place] [address] Neutrophils (Bld) [#/Vol] 6.03 10*3/uL Normal 1.60-7.60 [facility] Comment on above: Performed By: #### L [id number] #### [facility] ([facility]) [address] [place] [address] Neutrophils/100 WBC (Bld) 54.6 % Normal 40.0-72.0 [facility] Comment on above: Performed By: #### L [id number] #### [facility] ([facility]) [address] [place] [address] NRBC (PER 100 WBCS) BY AUTOMATED COUNT 0.0 % Normal 0 [facility] Comment on above: Performed By: #### L [id number] #### [facility] ([facility]) [address] [place] [address] PLATELETS (10*3/UL) IN BLOOD AUTOMATED COUNT 285 10*3/uL Normal 150-400 [facility] Comment on above: Performed By: #### L [id number] #### [facility] ([facility]) [address] [place] [address] RBC (Bld) [#/Vol] 4.31 10*6/uL Normal 3.80-5.00 [facility] Comment on above: Performed By: #### L [id number] #### [facility] ([facility]) [address] [place] [address] WBC (Bld) [#/Vol] 11.03 10*3/uL High 4.00-10.60 [facility] Comment on above: Performed By: #### L [id number] #### [facility] ([facility]) [address] [place] [address] 30on 07-08-2023 30 The patient is Moderately [...] Maintains adequate nutritional intake Outcome: Progressing Normal [facility] 30 Problem: Cardiovascular - Adult Goal: [...] for the shift include stable bp Normal [facility] BASIC METABOLIC PANELon 06-15 Anion gap [Moles/Vol] 10 mmol/L Normal 7-20 [facility] Comment on above: Performed By: #### L [id number] ####[facility] ([facility])[address] [place] [address] Calcium [Mass/Vol] 9.0 mg/dL Normal 8.6-10.3 [facility] Comment on above: Performed By: #### L [id number] ####[facility] ([facility])[address] [place] [address] Chloride [Moles/Vol] 97 mmol/L Low 98-107 [facility] Comment on above: Performed By: #### L [id number] ####[facility] ([facility])[address] [place] [address] CO2 [Moles/Vol] 33 mmol/L High 21-31 [facility] Comment on above: Performed By: #### L [id number] ####[facility] ([facility])[address] [place] [address] Creatinine [Mass/Vol] 1.30 mg/dL High 0.60-1.20 [facility] Comment on above: Performed By: #### L [id number] ####[facility] ([facility] [place] [address] GLOMERULAR FILTRATION RATE ML/MIN/1.73 SQ M.PREDICTED 46.5 mL/min/1.73m*2 Low >60.[address] [facility] Comment on above: Result Comment: [facility]???s estimated glomerular filtration rate (eGFR) will [...] of individuals. Performed By: #### L [id number] ####[facility] ([facility])[address] [place] [address] Glucose [Mass/Vol] 214 mg/dL High 70-100 [facility] Comment on above: Performed By: #### L [id number] ####[facility] ([facility])[address] [place] [address] Potassium [Moles/Vol] 3.9 mmol/L Normal 3.5-5.1 [facility] Comment on above: Performed By: #### L [id number] ####[facility] ([facility])[address] [place] [address] Sodium [Moles/Vol] 136 mmol/L Normal 136-145 [facility] Comment on above: Performed By: #### L [id number] ####[facility] ([facility])[address] [facility] [address] Urea nitrogen [Mass/Vol] 26 mg/dL High 7-25 [facility] Comment on above: Performed By: #### L [id number] ####[facility] ([facility])[address] [place] [address] UREA NITROGEN/CREATININE (MASS RATIO) IN SER/PLAS 20.0 Normal [facility] Comment on above: Performed By: #### L [id number] ####[facility] ([facility])[address] [place] [address] CBC WITH AUTO DIFFERENTIALon 07-08-2023 Basophils (Bld) [#/Vol] 0.04 10*3/uL Normal 0.00-0.20 [facility] Comment on above: Performed By: #### L [id number] #### [facility] ([facility]) [address] [place] [address] Basophils/100 WBC (Bld) 0.3 % Normal 0.0-1.0 [facility] Comment on above: Performed By: #### L [id number] #### [facility] ([facility]) [address] [place] [address] Eosinophils (Bld) [#/Vol] 0.51 10*3/uL High 0.00-0.50 [facility] Comment on above: Performed By: #### L [id number] #### [facility] ([facility]) [address] [place] [address] Eosinophils/100 WBC (Bld) 4.1 % Normal 0.0-6.0 [facility] Comment on above: Performed By: #### L [id number] #### [facility] ([facility]) [address] [place] [address] Erythrocyte distribution width (RBC) [Ratio] 15.0 % Normal 11.5-15.0 [facility] Comment on above: Performed By: #### L [id number] #### [facility] ([facility]) [address] [place] [address] ERYTHROCYTE MEAN CORPUSCULAR HEMOGLOBIN CONCENTRATION (G/DL) BY AUTOMATED 31.9 g/dL Low 32.0-35.0 [facility] Comment on above: Performed By: #### L [id number] #### [facility] [address] [place] [address] Hematocrit (Bld) [Volume fraction] 37.9 % Normal 36.0-48.0 [facility] Comment on above: Performed By: #### L [id number] #### [facility] [address] [place] [address] Hemoglobin (Bld) [Mass/Vol] 12.1 g/dL Normal 12.0-15.0 [facility] Comment on above: Performed By: #### L [id number] #### [facility] ([facility]) [address] [place] [address] Immature granulocytes (Bld) [#/Vol] 0.04 10*3/uL Normal 0.00-0.20 [facility] Comment on above: Performed By: #### L [id number] #### [facility] ([facility]) [address] [place] [place] [address] Immature granulocytes/100 WBC (Bld) 0.3 % Normal 0.0-1.0 [facility] Comment on above: Performed By: #### L [id number] #### [facility] ([facility]) [address] [place] [address] Lymphocytes (Bld) [#/Vol] 4.00 10*3/uL Normal 1.20-4.00 [facility] Comment on above: Performed By: #### L [id number] #### [facility] ([facility]) [address] [address] Lymphocytes/100 WBC (Bld) 32.1 % Normal 20.0-45.0 [facility] Comment on above: Performed By: #### L [id number] #### [facility] [address] [place] [address] MCH (RBC) [Entitic mass] 28.1 pg Normal 27.0-33.0 [facility] Comment on above: Performed By: #### L [id number] #### [facility] [address] [place] [address] MCV (RBC) [Entitic vol] 87.9 fL Normal 82.0-98.0 [facility] Comment on above: Performed By: #### L [id number] #### [facility] ([facility]) [address] [place] [address] Monocytes (Bld) [#/Vol] 0.85 10*3/uL Normal 0.10-1.00 [facility] Comment on above: Performed By: #### L [id number] #### [facility] [address] [place] [address] Monocytes/100 WBC (Bld) 6.8 % Normal 5.0-12.0 [facility] Comment on above: Performed By: #### L [id number] #### [facility]) [address] [place] [address] Neutrophils (Bld) [#/Vol] 7.02 10*3/uL Normal 1.60-7.60 [facility] Comment on above: Performed By: #### L [id number] #### [facility] [address] [place] [address] Neutrophils/100 WBC (Bld) 56.4 % Normal 40.0-72.0 [facility] Comment on above: Performed By: #### L [id number] #### [facility] ([facility]) [address] [place] [address] NRBC (PER 100 WBCS) BY AUTOMATED COUNT 0.0 % Normal 0 [facility] Comment on above: Performed By: #### L [id number] #### [facility]) [address] [place] [address] PLATELETS (10*3/UL) IN BLOOD AUTOMATED COUNT 301 10*3/uL Normal 150-400 [facility] Comment on above: Performed By: #### L [id number] #### [facility] [address] [place] [address] RBC (Bld) [#/Vol] 4.31 10*6/uL Normal 3.80-5.00 [facility] Comment on above: Performed By: #### L [id number] #### [facility] [address] [place] [address] WBC (Bld) [#/Vol] 12.46 10*3/uL High 4.00-10.60 [facility] Comment on above: Performed By: #### L [id number] #### [facility] ([facility]) [address] [place] [address] 30on 07-07-2023 30 The patient is Moderately Stable - Low risk of patient condition declining or worsening The patient's goals for the shift include comfort The clinical goals for the shift include vss Normal [facility] 30 Problem: Cardiovascular - Adult Goal: [...] comfort lev (more content not included)... Normal [facility] BASIC METABOLIC PANELon 02-2 4-2024 Anion gap [Moles/Vol] 12 mmol/L Normal 7-20 [facility] Comment on above: Performed By: #### L [id number] #### [facility]) [address] [place] [address] Calcium [Mass/Vol] 9.2 mg/dL Normal 8.6-10.3 [facility] Comment on above: Performed By: #### L [id number] #### [facility] ([facility]) [address] [place] [address] Chloride [Moles/Vol] 97 mmol/L Low 98-107 [facility] Comment on above: Performed By: #### L [id number] #### [facility] ([facility]) [address] [place] [address] CO2 [Moles/Vol] 31 mmol/L Normal 21-31 [facility] Comment on above: Performed By: #### L [id number] #### [facility] ([facility]) [address] [place] [address] Creatinine [Mass/Vol] 1.06 mg/dL Normal 0.60-1.20 [facility] Comment on above: Performed By: #### L [id number] #### [facility] ([facility]) [address] [place] [address] GLOMERULAR FILTRATION RATE ML/MIN/1.73 SQ M.PREDICTED 59.4 mL/min/1.73m*2 Low >60.[address] [facility] Comment on above: Result Comment: [facility]???s estimated glomerular filtration rate (eGFR) will [...] individuals. Performed By: #### L [id number] #### [facility] ([facility]) [address] [place] [address] Glucose [Mass/Vol] 119 mg/dL High 70-100 [facility] Comment on above: Performed By: #### L [id number] #### [facility] ([facility]) [address] [place] [address] Potassium [Moles/Vol] 4.6 mmol/L Normal 3.5-5.1 [facility] Comment on above: Performed By: #### L [id number] #### [facility] ([facility]) [address] [place] [address] Sodium [Moles/Vol] 135 mmol/L Low 136-145 [facility] Comment on above: Performed By: #### L [id number] #### [facility] ([facility]) [address] [place] [address] Urea nitrogen [Mass/Vol] 21 mg/dL Normal 7-25 [facility] Comment on above: Performed By: #### L [id number] #### [facility] ([facility]) [address] [place] [address] UREA NITROGEN/CREATININE (MASS RATIO) IN SER/PLAS 19.8 Normal [facility] Comment on above: Performed By: #### L [id number] #### [facility] ([facility]) [address] [place] [address] CBC WITH AUTO DIFFERENTIALon 07-07-2023 Basophils (Bld) [#/Vol] 0.05 10*3/uL Normal 0.00-0.20 [facility] Comment on above: Performed By: #### L [id number] #### [facility] ([facility]) [address] [place] [address] Basophils/100 WBC (Bld) 0.3 % Normal 0.0-1.0 [facility] Comment on above: Performed By: #### L [id number] #### [facility] ([facility]) [address] [place] [address] Eosinophils (Bld) [#/Vol] 0.38 10*3/uL Normal 0.00-0.50 [facility] Comment on above: Performed By: #### L [id number] #### [facility] ([facility] [address] [place] [address] Eosinophils/100 WBC (Bld) 2.5 % Normal 0.0-6.0 [facility] Comment on above: Performed By: #### L [id number] #### [facility] [address] [place] [address] Erythrocyte distribution width (RBC) [Ratio] 15.5 % High 11.5-15.0 [facility] Comment on above: Performed By: #### L [id number] #### [facility] [address] [place] [address] ERYTHROCYTE MEAN CORPUSCULAR HEMOGLOBIN CONCENTRATION (G/DL) BY AUTOMATED 32.0 g/dL Normal 32.0-35.0 [facility] Comment on above: Performed By: #### L [id number] #### [facility] ([facility]) [address] [place] [address] Hematocrit (Bld) [Volume fraction] 38.8 % Normal 36.0-48.0 [facility] Comment on above: Performed By: #### L [id number] #### [facility] [address] [place] [address] Hemoglobin (Bld) [Mass/Vol] 12.4 g/dL Normal 12.0-15.0 [facility] Comment on above: Performed By: #### L [id number] #### [facility] [address] [place] [address] Immature granulocytes (Bld) [#/Vol] 0.05 10*3/uL Normal 0.00-0.20 [facility] Comment on above: Performed By: #### L [id number] #### [facility] [address] [place] [address] Immature granulocytes/100 WBC (Bld) 0.3 % Normal 0.0-1.0 [facility] Comment on above: Performed By: #### L [id number] #### [facility] [address] [place] [address] Lymphocytes (Bld) [#/Vol] 3.99 10*3/uL Normal 1.20-4.00 [facility] Comment on above: Performed By: #### L [id number] #### [facility] ([facility]) [address] [place] [address] Lymphocytes/100 WBC (Bld) 26.5 % Normal 20.0-45.0 [facility] Comment on above: Performed By: #### L [id number] #### [facility] ([facility]) [address] [place] [address] MCH (RBC) [Entitic mass] 27.9 pg Normal 27.0-33.0 [facility] Comment on above: Performed By: #### L [id number] #### [facility] ([facility]) [address] [place] [address] MCV (RBC) [Entitic vol] 87.4 fL Normal 82.0-98.0 [facility] Comment on above: Performed By: #### L [id number] #### [facility] [address] [place] [address] Monocytes (Bld) [#/Vol] 1.25 10*3/uL High 0.10-1.00 [facility] Comment on above: Performed By: #### L [id number] #### [facility] ([facility] [address] [place] [address] Monocytes/100 WBC (Bld) 8.3 % Normal 5.0-12.0 [facility] Comment on above: Performed By: #### L [id number] #### [facility]) [address] [place] [address] Neutrophils (Bld) [#/Vol] 9.31 10*3/uL High 1.60-7.60 [facility] Comment on above: Performed By: #### L [id number] #### [facility] ([facility]) [address] [place] [address] Neutrophils/100 WBC (Bld) 62.1 % Normal 40.0-72.0 [facility] Comment on above: Performed By: #### L [id number] #### [facility] ([facility]) [address] [address] NRBC (PER 100 WBCS) BY AUTOMATED COUNT 0.0 % Normal 0 [facility] Comment on above: Performed By: #### L [id number] #### [facility] ([facility]) [address] [place] [address] PLATELETS (10*3/UL) IN BLOOD AUTOMATED COUNT 300 10*3/uL Normal 150-400 [facility] Comment on above: Performed By: #### L [id number] #### [facility] ([facility]) [address] [place] [address] RBC (Bld) [#/Vol] 4.44 10*6/uL Normal 3.80-5.00 [facility] Comment on above: Performed By: #### L [id number] #### [facility] ([facility]) [address] [address] WBC (Bld) [#/Vol] 15.03 10*3/uL High 4.00-10.60 [facility] Comment on above: Performed By: #### L [id number] #### [facility] ([facility]) [address] [place] [address] MAGNESIUMon 07-07-2023 Magnesium [Mass/Vol] 2.3 mg/dL Normal 1.9-2.7 [facility] Comment on above: Performed By: #### L [id number] ####[facility] ([facility])[address] [place] [address] 30on 07-06-2023 30 Daily Case Managemen t [...] Consultation Consultation and Management 07/06/23 1050 Normal [facility] 30 The patient is Moderately Stable [...] and maintained or improved Outcome: Progressing Normal [facility] 30 The patient is Moderately Stable - Low risk of patient condition declining or worsening The patient's goals for the shift include comfort The clinical goals for the shift include VSS Normal [facility] 30 The patient is Moderately Stable - Low risk of patient condition declining or worsening The patient's goals for the shift include comfort The clinical goals for the shift include VSS Normal [facility] APTTon 07-06-2023 ACTIVATED PARTIAL THROMBOPLASTIN TIME IN PPP BY COAGULATION ASSAY 25.3 Seconds Normal 25.0-35.0 [facility] Comment on above: Result Comment: Clin ical significance of the APTT is questionable in the presence of heparin. Performed By: #### L [id number] #### [facility] ([facility]) [address] [place] [address] B-TYPE NATRIURETIC PEPTIDEon 07-06-2023 Natriuretic peptide B (Bld) [Mass/Vol] 721 pg/mL High 0-100 [facility] Comment on above: Performed By: #### L [id number] #### [facility] ([facility]) [address] [facility] [place] [address] BLOOD CULTUREon 07-06-2023 Bacteria identified Cx Nom (Bld) No growth at [address] [facility] Comment on above: Performed By: #### L [id number] ####[facility] ([facility])[address] [place] [address] Order Comment: From a different site than #1. Performed By: #### L [id number] #### [facility] ([facility]) [address] [place] [address] CBC WITH AUTO DIFFERENTIALon 07-06-2023 Basophils (Bld) [#/Vol] 0.03 10*3/uL Normal 0.00-0.20 [facility] Comment on above: Performed By: #### L [id number] #### [facility] ([facility]) [address] [place] [address] Basophils/100 WBC (Bld) 0.2 % Normal 0.0-1.0 [facility] Comment on above: Performed By: #### L [id number] #### [facility] ([facility]) [address] [address] Eosinophils (Bld) [#/Vol] 0.11 10*3/uL Normal 0.00-0.50 [facility] Comment on above: Performed By: #### L [id number] #### [facility] ([facility]) [address] [place] [address] Eosinophils/100 WBC (Bld) 0.8 % Normal 0.0-6.0 [facility] Comment on above: Performed By: #### L [id number] #### [facility] ([facility]) [address] [place] [address] Erythrocyte distribution width (RBC) [Ratio] 15.1 % High 11.5-15.0 [facility] Comment on above: Performed By: #### L [id number] #### [facility] ([facility]) [address] [place] [address] ERYTHROCYTE MEAN CORPUSCULAR HEMOGLOBIN CONCENTRATION (G/DL) BY AUTOMATED 32.3 g/dL Normal 32.0-35.0 [facility] Comment on above: Performed By: #### L [id number] #### [facility] ([facility]) [address] [place] [address] Hematocrit (Bld) [Volume fraction] 39.0 % Normal 36.0-48.0 [facility] Comment on above: Performed By: #### L [id number] #### [facility] ([facility]) [address] [place] [address] Hemoglobin (Bld) [Mass/Vol] 12.6 g/dL Normal 12.0-15.0 [facility] Comment on above: Performed By: #### L [id number] #### [facility] ([facility]) [address] [place] [address] Immature granulocytes (Bld) [#/Vol] 0.04 10*3/uL Normal 0.00-0.20 [facility] Comment on above: Performed By: #### L [id number] #### [facility] ([facility]) [address] [address] Immature granulocytes/100 WBC (Bld) 0.3 % Normal 0.0-1.0 [facility] Comment on above: Performed By: #### L [id number] #### [facility] ([facility] [address] [place] [address] Lymphocytes (Bld) [#/Vol] 2.75 10*3/uL Normal 1.20-4.00 [facility] Comment on above: Performed By: #### L [id number] #### [facility] (BEAKER) [address] [place] [address] Lymphocytes/100 WBC (Bld) 19.1 % Low 20.0-45.0 [facility] Comment on above: Performed By: #### L [id number] #### [facility] ([facility]) [address] [place] [address] MCH (RBC) [Entitic mass] 27.9 pg Normal 27.0-33.0 [facility] Comment on above: Performed By: #### L [id number] #### [facility] ([facility]) [address] [place] [address] MCV (RBC) [Entitic vol] 86.5 fL Normal 82.0-98.0 [facility] Comment on above: Performed By: #### L [id number] #### [facility] (BEAKER) [address] [place] [address] Monocytes (Bld) [#/Vol] 1.31 10*3/uL High 0.10-1.00 [facility] Comment on above: Performed By: #### L [id number] #### [facility]) [address] [place] [address] Monocytes/100 WBC (Bld) 9.1 % Normal 5.0-12.0 [facility] Comment on above: Performed By: #### L [id number] #### [facility] (BEAKER) [address] [place] [address] Neutrophils (Bld) [#/Vol] 10.18 10*3/uL High 1.60-7.60 [facility] Comment on above: Performed By: #### L [id number] #### [facility]) [address] [place] [address] Neutrophils/100 WBC (Bld) 70.5 % Normal 40.0-72.0 [facility] Comment on above: Performed By: #### L [id number] #### [facility] (BEAKER) [address] [place] [address] NRBC (PER 100 WBCS) BY AUTOMATED COUNT 0.0 % Normal 0 [facility] Comment on above: Performed By: #### L [id number] #### [facility] ([facility]) [address] [place] [address] PLATELETS (10*3/UL) IN BLOOD AUTOMATED COUNT 321 10*3/uL Normal 150-400 [facility] Comment on above: Performed By: #### L [id number] #### [facility] ([facility]) [address] [place] [address] RBC (Bld) [#/Vol] 4.51 10*6/uL Normal 3.80-5.00 [facility] Comment on above: Performed By: #### L [id number] #### [facility] ([facility]) [address] [place] [address] WBC (Bld) [#/Vol] 14.42 10*3/uL High 4.00-10.60 [facility] Comment on above: Performed By: #### L [id number] #### [facility] ([facility]) [address] [place] [address] CKon 07-06-2023 CREATINE KINASE (U/L) IN SER/PLAS 36.0 U/L Normal 30.0-223.0 [facility] Comment on above: Performed By: #### L [id number] #### [facility] ([facility]) [address] [place] [address] COMPREHENSIVE METABOLIC PANE Pollo 07-06-2023 Albumin [Mass/Vol] 4.6 g/dL Normal 3.5-5.7 [facility] Comment on above: Performed By: #### L [id number] #### [facility] [address] [place] [address] ALP [Catalytic activity/Vol] 47 U/L Normal 34-104 [facility] Comment on above: Performed By: #### L [id number] #### [facility]) [address] [place] [address] ALT [Catalytic activity/Vol] 13 U/L Normal 7-52 [facility] Comment on above: Performed By: #### L [id number] #### [facility]) [address] [place] [address] Anion gap [Moles/Vol] 14 mmol/L Normal 7-20 [facility] Comment on above: Performed By: #### L [id number] #### [facility]) [address] [place] [address] AST [Catalytic activity/Vol] 17 U/L Normal 13-39 [facility] Comment on above: Performed By: #### L [id number] #### [facility] [address] [place] [address] Bilirubin [Mass/Vol] 0.5 mg/dL Normal 0.3-1.0 [facility] Comment on above: Performed By: #### L [id number] #### [facility] [address] [place] [address] Calcium [Mass/Vol] 8.9 mg/dL Normal 8.6-10.3 [facility] Comment on above: Performed By: #### L [id number] #### [facility] ([facility]) [address] [place] [address] Chloride [Moles/Vol] 98 mmol/L Normal 98-107 [facility] Comment on above: Performed By: #### L [id number] #### [facility] (BEAKER) [address] [place] [address] CO2 [Moles/Vol] 28 mmol/L Normal 21-31 [facility] Comment on above: Performed By: #### L [id number] #### [facility] (BEAKER) [address] [place] [address] Creatinine [Mass/Vol] 1.23 mg/dL High 0.60-1.20 [facility] Comment on above: Performed By: #### L [id number] #### [facility] ([facility]) [address] [place] [address] GLOMERULAR FILTRATION RATE ML/MIN/1.73 SQ M.PREDICTED 49.7 mL/min/1.73m*2 Low >60.[address] [facility] Comment on above: Result Comment: [facility]???s estimated glomerular filtration rate (eGFR) will [...] individuals. Performed By: #### L [id number] #### [facility] ([facility]) [address] [place] [address] Glucose [Mass/Vol] 119 mg/dL High 70-100 [facility] Comment on above: Performed By: #### L [id number] #### [facility] ([facility]) [address] [place] [address] Potassium [Moles/Vol] 4.6 mmol/L Normal 3.5-5.1 [facility] Comment on above: Performed By: #### L [id number] #### [facility] ([facility]) [address] [place] [address] Protein [Mass/Vol] 6.8 g/dL Normal 6.0-8.3 [facility] Comment on above: Performed By: #### L [id number] #### [facility] ([facility]) [address] [place] [address] Sodium [Moles/Vol] 135 mmol/L Low 136-145 [facility] Comment on above: Performed By: #### L [id number] #### [facility]) [address] [facility] [place] [address] Urea nitrogen [Mass/Vol] 23 mg/dL Normal 7-25 [facility] Comment on above: Performed By: #### L [id number] #### [facility] [address] [facility] [place] [address] UREA NITROGEN/CREATININE (MASS RATIO) IN SER/PLAS 18.7 Normal [facility] Comment on above: Performed By: #### L [id number] #### [facility] [address] [facility] [place] [address] CONSULTon 07-06-2023 CONSULT - Attestation signed by [...] of bradycardia. Patient has been transferred to [facility] for consideration of pacemaker placement. As [...] -- -- 7 (more content not included)... [facility] ED Clinical Summaryon 2023 ED Clinical Summary [address] [address] ED Clinical Summary Person Information Name: VIVIAN VANN/[place] Age: 63 Years : 1960 Sex: Female Language: Venezuelan PCP: Екатерина Robert MD Marital Status: Phone: [...] 07/05/2023 22:16:25 07/05/2023 22:16:25 07/05/2023 22:16:25 ADDR[facility]: [facility] [id number] PHYS DOC NOTES: MEDICAL INFORMATION: Prescriptions Given: [...] 3:Tobacco abuse; 4:CHF (congestive heart failure) Normal [facility] ED Patient Education Noteon 07-06-2023 ED Patient Education Note Normal [facility] ED Patient Summaryon 024 ED Patient Summary [address] [address] Patient Discharge Instructions Person Information Name: VIVIAN VANN Age: 63 Years Arrival Date: 07/05/2023 15:01:40 Discharge Diagnosis: 1:Atrial fibrillation with slow ventricular response; 2:Elevated troponin; 3:Tobacco abuse; 4:CHF (congestive heart failure) Primary Care Physician: Екатерина Robert MD Provider Information Primary Provider: Arsenio Martin DO Advanced Elevator Erector Helper:None The exam and treatment you received in the Emergency Department were for an urgent problem and are not intended as complete care. It is important that you follow up with a doctor, nurse practitioner, or physician?s surveyor instrument assistant for ongoing care. If your symptoms [...] opioids can be used to help relieve [id number]-xrddns pain and are often prescribed following a [...] struggling with addiction, tell your health care aide and ask for guidance or call [employer]?S National Helpline at 7-578-098-HELP. v Source: [place] Department of Health and Human Services/Center for Disease Control & Preve (more content not included)... Normal [facility] ETHANOLon 07-06-2023 ETHANOL (MG/DL) IN SER/PLAS <10 Normal [facility] Comment on above: Performed By: #### L [id number] ####[facility])[address] [place] [address] ETHANOL CALCULATED (%) Normal Un [facility] Comment on above: Performed By: #### L [id number] ####[facility])[address] [place] [address] HEMOGLOBIN A1Con 07-06-2023 Glucose [Mass/Vol] 148 mg/dL Normal [facility] Comment on above: Performed By: #### L [id number] #### [facility] ([facility]) [address] [place] [address] HbA1c (Bld) [Mass fraction] 6.8 % High 4.0-6.0 [facility] Comment on above: Performed By: #### L [id number] #### [facility] [address] [place] [address] LACTIC ACID WITH 4 HOUR REFL EXon 07-06-2023 LACTATE (MMOL/L) IN SER/PLAS 1.8 mmol/L Normal 0.5-2.2 [facility] Comment on above: Performed By: #### L [id number] ####[facility] ([facility])[address] [place] [address] LIPID PANELon 07-06-2023 CHOL/HDL 3.0 mg/dL Normal [facility] Comment on above: Performed By: #### L [id number] #### [facility]) [address] [place] [address] Cholesterol [Mass/Vol] 143 mg/dL Normal 120-200 Un [facility] Comment on above: Performed By: #### L [id number] #### [facility]) [address] [place] [address] Magnesium [Mass/Vol] 159 mg/dL High 40-149 [facility] Comment on above: Result Comment: TRIG LYCERIDE REFERENCE RANGE: 20 YEARS AND OLDER CARDIOVASCULAR RISK LESS THAN 150 mg/dL LOW RISK 150 TO 199 mg/dL BORDERLINE RISK 200 mg/dL AND GREATER HIGH RISK Performed By: #### L [id number] #### [facility] ([facility]) [address] [place] [address] Magnesium [Mass/Vol] 63 mg/dL Normal 0-160 [facility] Comment on above: Performed By: #### L [id number] #### [facility] ([facility]) [address] [place] [address] Magnesium [Mass/Vol] 48 mg/dL Normal 23-92 [facility] Comment on above: Performed By: #### L [id number] #### [facility] ([facility]) [address] [place] [address] NON HDL CHOL. (LDL+VLDL) 95 Normal [facility] Comment on above: Performed By: #### L [id number] #### [facility] ([facility]) [address] [place] [address] TOTAL VLDL-C 32 mg/dL Normal 0-[address] [facility] Comment on above: Performed By: #### L [id number] #### [facility] [address] [place] [address] MAGNESIUMon 07-06-2023 Magnesium [Mass/Vol] 2.2 mg/dL Normal 1.9-2.7 [facility] Comment on above: Performed By: #### L [id number] #### [facility] [address] [place] [address] PHOSPHORUSon 07-06-2023 Magnesium [Mass/Vol] 5.2 mg/dL High 2.5-5.0 [facility] Comment on above: Performed By: #### L [id number] #### [facility] [address] [place] [address] PROTIME-INRon 07-06-2023 INR IN PPP BY COAGULATION ASSAY 1.00 Normal 0.90-1.10 [facility] Comment on above: Result Comment: ACCC [...] 1995;[id number]. Performed By: #### L [id number] #### [facility] [employer] [facility]) [address] [place] [address] PROTHROMBIN TIME (PT) IN PPP BY COAGULATION ASSAY 13.2 Seconds Normal 12.3-14.8 [facility] Comment on above: Performed By: #### L [id number] #### [facility] [employer] [facility]) [address] [place] [address] TOXICOLOGY PANEL URINEon AMPHETAMINE+METHAMPHET AMINE SCREEN (PRESENCE) IN URINE Negative Normal Negative [facility] Comment on above: Performed By: #### L [id number] #### [facility] [employer] [facility]) [address] [place] [address] BARBITURATES PRESENCE IN URINE BY SCREEN METHOD Negative Normal Negative [facility] Comment on above: Performed By: #### L [id number] #### [facility]) [address] [place] [address] Benzodiazepines Ql (U) Positive Abnormal Negative Un [facility] Comment on above: Performed By: #### L [id number] #### [facility] ([facility]) [address] [place] [address] CANNABINOID (PRESENCE) IN URINE BY SCREEN METHOD Positive Abnormal Negative [facility] Comment on above: Performed By: #### L [id number] #### [facility] ([facility]) [address] [place] [address] Cocaine Ql (U) Negative Normal Negative [facility] Comment on above: Performed By: #### L [id number] #### [facility] ([facility]) [address] [place] [address] METHADONE (PRESENCE) IN URINE BY SCREEN METHOD Negative Normal Negative [facility] Comment on above: Performed By: #### L [id number] #### [facility] ([facility]) [address] [address] OPIATES (PRESENCE) IN URINE BY SCREEN METHOD Negative Normal Negative [facility] Comment on above: Performed By: #### L [id number] #### [facility] [address] [address] PHENCYCLIDINE PRESENCE IN URINE BY SCREEN METHOD Negative Normal Negative [facility] Comment on above: Performed By: #### L [id number] #### [facility] [address] [address] Propoxyphene Screen Ql (U) Negative Normal Negative [facility] Comment on above: Performed By: #### L [id number] #### [facility]) [address] [place] [address] TRICYCLIC ANTIDEPRESSANTS (PRESENCE) IN URINE Positive Abnormal Negative [facility] Comment on above: Performed By: #### L [id number] #### [facility] [address] [facility] [place] [address] TROPONIN Ion 07-06-2023 Troponin I.cardiac [Mass/Vol] 0.12 ng/mL Critically high 0.00-0.04 [facility] Comment on above: Result Comment: M-HI EVIOUS CRITICAL RESULT Previous result verified on 07/06/2023 1236 on specimen/case [id number] called with component Troponin I for procedure Troponin I with value 0.11 ng/mL. Performed By: #### L [id number] #### [facility] ([facility]) [address] [place] [address] Troponin I.cardiac [Mass/Vol] 0.11 ng/mL Critically high 0.00-0.04 [facility] Comment on above: Result Comment: M-HI EVIOUS CRITICAL RESULT Previous result verified on 07/06/2023 0444 on specimen/case [id number] called with component Troponin I for procedure Troponin I with value 0.12 ng/mL. Performed By: #### L [id number] #### [facility] ([facility]) [address] [place] [address] Troponin I.cardiac [Mass/Vol] 0.12 ng/mL Critically high 0.00-0.04 [facility] Comment on above: Result Comment: M-CR ITICAL RESULT(S) REVIEWED, CALLED TO AND READ BACK BY PRIYANKA LEOS RN AT 0442 M-TROPONIN INITIAL CRITICAL HIGH; RESPUN AND RETESTED Performed By: #### L [id number] #### [facility] ([facility]) [address] [place] [address] TSH3 REFLEX TO FT4on 024 THYROTROPIN (MIU/L) IN SER/PLAS BY DETECTION LIMIT <= 0.05 MIU/L 4.25 mIU/L Normal 0.34-5.[address] [facility] Comment on above: Performed By: #### L [id number] #### [facility] ([facility]) [address] [place] [address] Transfer Documentson 024 Transfer Documents [id number]# 1.00TIFF Normal [facility] URINALYSIS WITH REFLEX CULTU REon 07-06-2023 BILIRUBIN, TOTAL PRESENCE IN URINE Negative Normal Negative [facility] Comment on above: Order Comment: Micro scopics not performed on urines with negative chemical reactions unless requested on original order. Performed By: #### L [id number] #### [facility] ([facility] [address] [place] [address] Clarity (U) Clear Normal Clear [facility] Comment on above: Order Comment: Micro scopics not performed on urines with negative chemical reactions unless requested on original order. Performed By: #### L [id number] #### [facility] ([facility]) [address] [place] [address] Color (U) Yellow Normal Yellow [facility] Comment on above: Order Comment: Micro scopics not performed on urines with negative chemical reactions unless requested on original order. Performed By: #### L [id number] #### [facility] ([facility]) [address] [place] [address] Glucose (U) [Mass/Vol] mg/dL Abnormal Negative [facility] Comment on above: Order Comment: Micro scopics not performed on urines with negative chemical reactions unless requested on original order. Performed By: #### L [id number] #### [facility] ([facility]) [address] [place] [address] HEMOGLOBIN PRESENCE IN URINE Negative Normal Negative [facility] Comment on above: Order Comment: Micro scopics not performed on urines with negative chemical reactions unless requested on original order. Performed By: #### L [id number] #### [facility] ([facility]) [address] [place] [address] Ketones Ql (U) Negative Normal Negative [facility] Comment on above: Order Comment: Micro scopics not performed on urines with negative chemical reactions unless requested on original order. Performed By: #### L [id number] #### [facility] ([facility]) [address] [place] [address] LEUKOCYTE ESTERASE PRESENCE IN URINE BY TEST STRIP Negative Normal Negative [facility] Comment on above: Order Comment: Micro scopics not performed on urines with negative chemical reactions unless requested on original order. Performed By: #### L [id number] #### [facility] ([facility]) [address] [place] [address] NITRITE PRESENCE IN URINE Negative Normal Negative [facility] Comment on above: Order Comment: Micro scopics not performed on urines with negative chemical reactions unless requested on original order. Performed By: #### L [id number] #### [facility] ([facility]) [address] [place] [address] pH (U) 6.0 [pH] Normal 5.0-8.0 [facility] Comment on above: Order Comment: Micro scopics not performed on urines with negative chemical reactions unless requested on original order. Performed By: #### L [id number] #### [facility] ([facility]) [address] [place] [address] Protein (U) [Mass/Vol] Negative Normal Negative [facility] Comment on above: Order Comment: Micro scopics not performed on urines with negative chemical reactions unless requested on original order. Performed By: #### L [id number] #### [facility] ([facility]) [address] [place] [address] Specific gravity (U) [Rel density] 1.013 Low 1.015-1.020 [facility] Comment on above: Order Comment: Micro scopics not performed on urines with negative chemical reactions unless requested on original order. Performed By: #### L [id number] #### [facility] ([facility]) [address] [place] [address] BILIRUBIN, TOTAL PRESENCE IN URINE Negative Normal Negative [facility] Comment on above: Order Comment: Micro scopics not performed on urines with negative chemical reactions unless requested on original order. Performed By: #### L [id number] #### [facility] ([facility]) [address] [place] [address] Clarity (U) Clear Normal Clear [facility] Comment on above: Order Comment: Micro scopics not performed on urines with negative chemical reactions unless requested on original order. Performed By: #### L [id number] #### [facility] ([facility]) [address] [place] [address] Color (U) Yellow Normal Yellow [facility] Comment on above: Order Comment: Micro scopics not performed on urines with negative chemical reactions unless requested on original order. Performed By: #### L [id number] #### [facility] ([facility]) [address] [place] [address] Glucose (U) [Mass/Vol] mg/dL Abnormal Negative [facility] Comment on above: Order Comment: Micro scopics not performed on urines with negative chemical reactions unless requested on original order. Performed By: #### L [id number] #### [facility] ([facility]) [address] [place] [address] HEMOGLOBIN PRESENCE IN URINE Negative Normal Negative [facility] Comment on above: Order Comment: Micro scopics not performed on urines with negative chemical reactions unless requested on original order. Performed By: #### L [id number] #### [facility] ([facility]) [address] [place] [address] Ketones Ql (U) Negative Normal Negative [facility] Comment on above: Order Comment: Micro scopics not performed on urines with negative chemical reactions unless requested on original order. Performed By: #### L [id number] #### [facility] ([facility]) [address] [place] [address] LEUKOCYTE ESTERASE PRESENCE IN URINE BY TEST STRIP Negative Normal Negative [facility] Comment on above: Order Comment: Micro scopics not performed on urines with negative chemical reactions unless requested on original order. Performed By: #### L [id number] #### [facility] ([facility]) [address] [place] [address] NITRITE PRESENCE IN URINE Negative Normal Negative [facility] Comment on above: Order Comment: Micro scopics not performed on urines with negative chemical reactions unless requested on original order. Performed By: #### L [id number] #### [facility] ([facility]) [address] [place] [address] pH (U) 6.0 [pH] Normal 5.0-8.0 [facility] Comment on above: Order Comment: Micro scopics not performed on urines with negative chemical reactions unless requested on original order. Performed By: #### L [id number] #### [facility] ([facility]) [address] [place] [address] Protein (U) [Mass/Vol] Negative Normal Negative [facility] Comment on above: Order Comment: Micro scopics not performed on urines with negative chemical reactions unless requested on original order. Performed By: #### L [id number] #### [facility] ([facility]) [address] [place] [address] Specific gravity (U) [Rel density] 1.017 Normal 1.015-1.020 [facility] Comment on above: Order Comment: Micro scopics not performed on urines with negative chemical reactions unless requested on original order. Performed By: #### L [id number] #### [facility] ([facility]) [address] [place] [address] BMP 07-05-2023 Anion gap [Moles/Vol] 15 mmol/L Normal 6-16 [facility] Comment on above: Performed By: #### 1 5530568, 6452745, 09546088, 17773224, 0514123, 30442935, 3328479, 4904711, 1824857, 6266213 ####[facility] [address] [place] [address] BUN/Creat Ratio 15 No Units Normal 10-20 [facility] Comment on above: Performed By: #### 1 9024389, 0822863, 05472643, 55101809, 9184284, 60722385, 0052382, 8384333, 0271183, 0785427 ####[facility] [address] [place] [address] Calcium [Mass/Vol] 10.1 mg/dL Normal 8.9-11.1 [facility] Comment on above: Performed By: #### 1 8563039, 0401684, 01108894, 64886689, 8070432, 33058656, 0596514, 6323874, 9097690, 2617899 ####[facility] [address] [place] [address] Chloride [Moles/Vol] 96 mmol/L Low 101-[address] [facility] Comment on above: Performed By: #### 1 6493694, 0256598, 91253744, 04074380, 5265191, 80008727, 0923875, 3577933, 8145922, 9217634 ####[facility] [address] [place] [address] CO2 [Moles/Vol] 32 mmol/L High 21-31 [facility] Comment on above: Performed By: #### 1 4868094, 0815422, 09667484, 66061834, 1520616, 25456924, 0589200, 6277594, 6230395, 5514900 ####[facility] [address] [place] [address] Creatinine [Mass/Vol] 1.5 mg/dL High 0.5-1.3 [facility] Comment on above: Performed By: #### 1 6641444, 0968802, 71758448, 91248027, 3738172, 23908067, 3325268, 3683477, 5716421, 0986068 ####[facility] [address] [place] [address] Glucose [Mass/Vol] 147 mg/dL Normal 55-199 [facility] Comment on above: Performed By: #### 1 6084981, 4920544, 72326731, 86680779, 5139649, 55412731, 7899886, 7990104, 1327314, 1392678 ####[facility] [address] [place] [address] Potassium [Moles/Vol] 5.1 mmol/L Normal 3.5-5.3 [facility] Comment on above: Performed By: #### 1 2878317, 6800583, 64891679, 74985715, 2216586, 92348673, 2031441, 3219404, 7542975, 0594555 ####[facility] [address] [place] [address] Sodium [Moles/Vol] 138 mmol/L Normal 135-145 [facility] Comment on above: Performed By: #### 1 3280126, 3252423, 33732049, 15669673, 5547848, 13033418, 0478353, 4110562, 1650922, 5232776 ####[facility] [address] [place] [address] Urea nitrogen [Mass/Vol] 22 mg/dL High 5-21 [facility] Comment on above: Performed By: #### 1 0638128, 8937880, 60481952, 19221304, 9264411, 16557195, 8113714, 3529838, 4778404, 6967969 ####[address] [address] BNPon 07-05-2023 Natriuretic peptide B (Bld) [Mass/Vol] 508 pg/mL High 5-80 [facility] Comment on above: Performed By: #### 1 9508889, 8469972, 63492496, 28951165, 2949253, 59806420, 6851503, 9712290, 0631400, 3505961 ####[address] [address] CBC w/ Auto Diffon Basophil Absolute 0.1 E9/L Normal 0.0-0.2 [facility] Comment on above: Performed By: #### 1 9884690, 2247220, 95510034, 35692704, 1162503, 41768661, 9820582, 3107281, 9023525, 4806841 ####[address] [place] [address] Basophils/100 WBC (Bld) 0.7 % Normal 0.0-2.0 [facility] Comment on above: Performed By: #### 1 8929847, 8402577, 33082275, 12667241, 8405964, 71178300, 6122155, 6270025, 8788606, 7823900 ####[address] [place] [address] Eos Absolute 0.4 E9/L Normal 0.0-0.5 [facility] Comment on above: Performed By: #### 1 2628592, 0800816, 27408365, 49601733, 3991710, 45652826, 0997039, 5057246, 2201554, 1438119 ####[place] [address] Eosinophils/100 WBC (Bld) 3.7 % Normal 0.0-8.0 [facility] Comment on above: Performed By: #### 1 0364752, 4661100, 32664183, 06787943, 4294462, 92927415, 8946137, 9729544, 0138129, 7718796 ####[place] [address] Erythrocyte distribution width (RBC) [Ratio] 16.8 % High 10.9-14.2 [facility] Comment on above: Performed By: #### 1 1446868, 2173420, 51828349, 22319941, 5900133, 29447671, 6774427, 0730217, 7505354, 0821412 ####[place] [address] Hematocrit (Bld) [Volume fraction] 46.0 % Normal 34.0-46.0 [facility] Comment on above: Performed By: #### 1 9109658, 7577524, 47041952, 48582163, 2213703, 12681989, 8629887, 8058540, 7945759, 0298975 ####[place] [address] Hemoglobin (Bld) [Mass/Vol] 15.1 g/dL Normal 12.0-16.0 [facility] Comment on above: Performed By: #### 1 8332280, 6744844, 78482745, 81316115, 4516982, 39131304, 3046244, 8937287, 2325264, 6830171 ####[address] [place] [address] Lymph Absolute 3.6 E9/L Normal 1.0-4.0 [facility] Comment on above: Performed By: #### 1 2469885, 4515613, 53965664, 75265572, 7822305, 14795871, 4553296, 6007165, 6971376, 0716014 ####[address] [address] Lymphocytes/100 WBC (Bld) 30.9 % Normal 14.0-50.0 [facility] Comment on above: Performed By: #### 1 2388090, 4004566, 06860173, 04472092, 5237330, 86028345, 2003413, 2203473, 8275065, 1889751 ####[address] [address] MCH (RBC) [Entitic mass] 27.6 pg Normal 27.0-34.0 [facility] Comment on above: Performed By: #### 1 6141034, 5178011, 94333612, 22492191, 4541274, 41747648, 1499468, 4851582, 4837901, 2848480 ####[address] [address] MCHC (RBC) [Mass/Vol] 32.8 g/dL Normal 31.4-36.0 [facility] Comment on above: Performed By: #### 1 8201556, 6802334, 78325513, 57920845, 6523509, 21787503, 1394577, 0827694, 0983364, 7353221 ####[address] [address] MCV (RBC) [Entitic vol] 84.3 fL Normal 80.0-100.0 [facility] Comment on above: Performed By: #### 1 3824459, 2562682, 92622660, 42057742, 5587900, 83294415, 8880793, 3782082, 3655484, 4551511 ####[facility] [address] [place] [address] Greer Absolute 0.9 E9/L Normal 0.2-1.0 [facility] Comment on above: Performed By: #### 1 0028934, 9947551, 44350156, 22567839, 4337677, 50873833, 5313845, 2614969, 5157077, 4480578 ####[address] [place] [address] Monocytes/100 WBC (Bld) 8.1 % Normal 4.0-14.0 [facility] Comment on above: Performed By: #### 1 0611385, 5518013, 94095274, 47821054, 9305452, 55266062, 5306302, 1348363, 7182495, 1416400 ####[address] [address] Neutro Absolute 6.6 E9/L Normal 2.0-7.5 [facility] Comment on above: Performed By: #### 1 2905907, 8266089, 25321553, 69923944, 3696972, 70507078, 7602205, 7514352, 5172887, 1393764 ####[address] [place] [address] Neutro Auto 56.6 % Normal 36.0-75.0 [facility] Comment on above: Performed By: #### 1 5408154, 8701392, 92800524, 11884741, 8419586, 31221393, 5259368, 6855723, 6026551, 0793643 ####[address] [place] [address] Platelet 431.0 E9/L Normal 150.0-500.0 [facility] Comment on above: Performed By: #### 1 9024910, 0383024, 15665500, 90858805, 4359942, 60343451, 8072303, 1582448, 9404848, 2424458 ####[facility] [address] [place] [address] Platelet mean volume (Bld) [Entitic vol] 8.5 fL Normal 6.4-10.8 [facility] Comment on above: Performed By: #### 1 2801999, 8782221, 55961580, 46136037, 9806401, 41280861, 5199986, 9285347, 8812355, 8336377 ####[facility] [address] [place] [address] RBC 5.5 E12/L Normal 4.3-5.9 [facility] Comment on above: Performed By: #### 1 5760075, 6703462, 58298930, 19819526, 1862045, 37311078, 1731584, 4031182, 9443857, 1257399 ####[facility] [address] [place] [address] WBC 11.6 E9/L High 4.0-11.0 [facility] Comment on above: Performed By: #### 1 8476457, 1150607, 70692376, 45286448, 0421734, 42590521, 8567919, 3987072, 9203352, 5503344 ####[facility] [address] [place] [address] CHEMISTRYOrdered By: SYSTEM SYSTEM on 07-05-2023 Troponin 51.10 pg/mL Invalid Interpretation Code 10.10 - 27.10 pg/mL [facility] Comment on above: Result Comment: Crit ical Result I_TnIHS:51.1 Called to and read back by: DR. JUAN MAS at: 07/05/2023 21:51:38 by:[id number] Critical Result Verified by Previous Result Interpretive Data: T he 95% CI (Confidence Interval) PPV (Positive Predictive Value) for myocardial infarction in females is 38 pg/mL, in males 51 pg/mL. The results should be used in conjunction with clinical conditions of myocardial infarction. (Access High Sensitivity Troponin I Instructions For Use, [employer], December 2017) Troponin 51.70 pg/mL Invalid Interpretation Code 10.10 - 27.10 pg/mL [facility] Chem S Comment on above: Interpretive Data: T he 95% CI (Confidence Interval) PPV (Positive Predictive Value) for myocardial infarction in females is 38 pg/mL, in males 51 pg/mL. The results should be used in conjunction with clinical conditions of myocardial infarction. (Access High Sensitivity Troponin I Instructions For Use, [employer], December 2017) Result Comment: Crit ical Result [...] back by: JOHNNA PERKINS at: 07/05/2023 16:37:35 by:[id number] Interpretive Data: T he 95% CI (Confidence [...] 508 pg/mL High 5 - 80 pg/mL [facility] COAGULATIONOrdered By: Richar Kumar on 07-05-2023 aPTT Coag (PPP) [Time] 27.2 s Normal 25.1 - 36.5 second(s) [facility] Auto Coag Comment on above: Interpretive Data: [...] the same coagulation reagent and instrumentation as [facility]. Currently there are no coagulation studies available worldwide for children to 14 days, and no normal ranges. Heparin therapeutic range (represented by Anti-Factor Xa activity of 0.2 - 0.4 U/mL) corresponds to PTT of 56.6 - 109.0 sec. INR Coag (PPP) [Relative time] 1.01 {INR} Invalid Interpretation Code [facility] Auto Coag Comment on above: Interpretive Data: I NR results are specifically intended to assess patients stabilized on long-term Anticoagulation therapy suggested INR s Less Intensive Anticoagulation 2.0 3.0 Conventional Range 3.0 4.5 PT Coag (PPP) [Time] 11.2 s Normal 9.4 - 1 2.5 second(s) [facility] Auto Coag Comment on above: Interpretive Data: [...] the same coagulation reagent and instrumentation as [facility]. Currently there are no coagulation studies available worldwide for children to 14 days, and no normal ranges. Consent for Treatment 06-15 Consent for Treatment [id number]#1 .00TIFF Normal [facility] Digoxinon 07-05-2023 Digoxin Lvl <0.2 Low 0.5-1.9 [facility] Comment on above: Performed By: #### 1 0780151, 2223596, 97265018, 83641499, 6341337, 31221837, 6829100, 0072449, 6772368, 9973781 ####[facility] [address] [place] [address] ED Note-Physicianon 07-05-19 24 ED Note-Physician Basic [...] acute int (more content not included)... Normal [facility] Comment on above: Result Comment: Elec tronically [...] Normal 80.0 - 100.0 fL Remisol Heme [place] Absolute 0.9 E9/L Normal 0.2 - 1.0 [...] 07-05-2023 Albumin [Mass/Vol] 4.3 g/dL Normal 3.3-5.0 [facility] Comment on above: Performed By: #### 1 4715627, 9134249, 99208049, 81772227, 6957123, 17349442, 3959205, 7004475, 0793542, 0783603 ####[facility] [address] [place] [address] Albumin/Globulin [Mass ratio] 1.4 {ratio} Normal 1.1-2.2 [facility] Comment on above: Performed By: #### 1 8915034, 6826846, 07925429, 90433320, 7122596, 96544934, 0884935, 1513336, 1031893, 1060270 ####[facility] [address] [place] [address] Alk Phos 77 Int._Unit/L Normal 21-98 [facility] Comment on above: Performed By: #### 1 6844522, 3936667, 33734066, 64408582, 1087501, 16815197, 4030068, 1311130, 0855211, 8696615 ####[address] [place] [address] ALT 20 Int._Unit/L Normal 6-46 [facility] Comment on above: Performed By: #### 1 6479613, 8235688, 33523118, 61723748, 5728996, 58326298, 7329508, 4507894, 5301900, 3535797 ####[address] [place] [address] AST 23 Int._Unit/L Normal 5-43 [facility] Comment on above: Performed By: #### 1 0613550, 7879496, 00373301, 39099803, 4876907, 74081797, 8433201, 6228120, 3449721, 1354320 ####[facility] [address] [place] [address] Bili Direct 0.1 mg/dL Normal 0.0-0.4 [facility] Comment on above: Performed By: #### 1 7905951, 7534275, 42436719, 11180496, 7711507, 66456461, 4461694, 7412212, 3145691, 4400399 ####[facility] [address] [place] [address] Bili Indirect 0.5 mg/dL Normal 0.1-0.9 [facility] Comment on above: Performed By: #### 1 4054957, 1815116, 82157692, 46867792, 8863468, 78401759, 3950164, 3630932, 8999697, 4129296 ####[facility] [address] [place] [address] Bili Total 0.6 mg/dL Normal 0.0-1.1 [facility] Comment on above: Performed By: #### 1 5177429, 9457679, 66599065, 51158799, 5118811, 25341282, 4814369, 3530006, 7207168, 8258828 ####[facility] [address] [place] [address] Globulin (S) [Mass/Vol] 3.0 g/dL Normal 1.4-4.0 [facility] Comment on above: Performed By: #### 1 6503038, 9068630, 72381902, 92711273, 2098105, 63015310, 9753149, 0456790, 0115933, 5983468 ####[facility] [address] [place] [address] Protein [Mass/Vol] 7.3 g/dL Normal 6.0-7.8 [facility] Comment on above: Performed By: #### 1 1685289, 7499589, 41524536, 32586329, 8552143, 78412786, 4268653, 6741288, 8890070, 0161127 ####[facility] [address] [place] [address] Lipase Levelon 07-05-2023 Lipase Lvl 22 unit/L Normal 13-58 [facility] Comment on above: Performed By: #### 1 3808379, 0655778, 39143922, 05617742, 0907151, 59428955, 3152197, 8941891, 0898814, 0855033 ####[facility] [address] [place] [address] Magnesiumon 07-05-2023 Magnesium [Mass/Vol] 2.3 mg/dL Normal 1.3-2.[address] [facility] Comment on above: Performed By: #### 1 4523312, 9474805, 90997260, 32397099, 3852174, 14327243, 4187555, 5961421, 5425019, 3471235 ####[facility] [address] [place] [address] Monitor Recordon 07-05-2023 Monitor Record [id number]# 1.00TIFF Normal [facility] Monitor Record [id number]# 1.00TIFF Normal [facility] Monitor Record [id number]# 1.00TIFF Normal [facility] PT & PTTon 07-05-2023 aPTT Coag (PPP) [Time] 27.2 second(s) Normal 25.1-36.5 [facility] Comment on above: Result Comment: Para meter [...] the same coagulation reagent and instrumentation as [facility]. Currently there are no coagulation studies available worldwide for children to 14 days, and no normal ranges. Heparin therapeutic range (represented by Anti-Factor Xa activity of 0.2 - 0.4 U/mL) corresponds to PTT of 56.6 - 109.0 sec. Performed By: #### 1 [id number], [id number], [id number], 44660911, 2214707, 45293628, 4574754, 2487819, 0492371, 0676784 ####[facility] [address] [place] [address] INR Coag (PPP) [Relative time] 1.01 {INR} Invalid Interpretation Code [facility] Comment on above: Result Comment: INR results are specifically intended to assess patients stabilized on long-term Anticoagulation therapy suggested INR?s ?Less Intensive Anticoagulation? 2.0 ? 3.0 Conventional Range 3.0 ? 4.5 Performed By: #### 1 [id number], [id number], 07151032, [id number], 9284289, 28014286, 7671391, 8321652, 5137902, 1364461 ####[facility] [address] [place] [address] PT Coag (PPP) [Time] 11.2 second(s) Normal 9.4-12.5 [facility] Comment on above: Result Comment: 15 d [...] the same coagulation reagent and instrumentation as [facility]. Currently there are no coagulation studies available worldwide for children to 14 days, and no normal ranges. Performed By: #### 1 [id number], 2155017, 95977042, 57713252, 8196137, 34527229, 4862805, 3308049, 9799287, 1254611 ####[facility] [address] [place] [address] Pre-Arrival Noteon Pre-Arrival Note Pre-Arrival Summary Name: , [facility] Current Date: 07/05/2023 15:02:00 EST Gender: Female Date of : Age: 63 Pre-Arrival Type: EMS ETA: 07/05/2023 15:21:00 EST Primary Care Physician: Presenting Problem: HR 40s, CP, SOB, dizziness, abd. pain, nausea Pre-Arrival User: Oxana Pace RN Referring Source: Location: [place] Completion Date/Time: 07/05/2023 14:51:00 [facility] Emergency Department Pre-Hospital Report Form Vital Signs: Pre-Hospital Report: Treatment in Route: Response to Treatment: Misc. Issues: Normal [facility] Troponin 0 Hr.on 07-05-2023 Troponin 49.20 pg/mL Abnormal 10.10-27.10 [facility] Comment on above: Result Comment: Steven gonzalez Result Verified by Repeat Analysis Critical Result I_TnIHS:49.2 Called to and read back by: JOHNNA PERKINS at: 07/05/2023 16:37:35 by:[email or web address] The 95% CI (Confidence Interval) PPV (Positive Predictive Value) for myocardial infarction in females is 38 pg/mL, in males 51 pg/mL. The results should be used in conjunction with clinical conditions of myocardial infarction. (Access High Sensitivity Troponin I Instructions For Use, Johana Avtodoria, December 2017) Performed By: #### 1 [id number], 1395161, 13240537, 78403459, 5757397, 94475827, 5251222, 4823847, 5054007, 3624640 ####[facility] [place] [address] Troponin 3 Hr.on 07-05-2023 Troponin 51.70 pg/mL Abnormal 10.10-27.10 [facility] Comment on above: Result Comment: The 95% CI (Confidence Interval) PPV (Positive Predictive Value) for myocardial infarction in females is 38 pg/mL, in males 51 pg/mL. The results should be used in conjunction with clinical conditions of myocardial infarction. (Access High Sensitivity Troponin I Instructions For Use, [employer], December 2017) Critical Result Verified by Previous Result Results Called To Johnna Perkins (ER) By STANFORD And Read Back For Confirmation On 07/05/2023 19:18:03 EST. Performed By: #### 1 [id number] ####[facility] [address] [place] [address] Troponin 6 Hr.on 07-05-2023 Troponin 51.10 pg/mL Abnormal 10.10-27.10 [facility] Comment on above: Result Comment: Crit ica Result I_TnIHS:51.1 Called to and read back by: DR. JUAN MAS at: 07/05/2023 21:51:38 by:[email or web address] Critical Result Verified by Previous Result The 95% CI (Confidence Interval) PPV (Positive Predictive Value) for myocardial infarction in females is 38 pg/mL, in males 51 pg/mL. The results should be used in conjunction with clinical conditions of myocardial infarction. (Cibiem High Sensitivity Troponin I Instructions For Use, [employer], December 2017) Performed By: #### 1 [id number] ####[facility] [address] [place] [address] XR Chest Single Viewon 07-05 XR Chest [...] mGy = na DAP = na Normal [facility] eGFRon 07-05-2023 eGFR 39 mL/min/1.73 m2 Low >=59 [facility] Comment on above: Order Comment: Order added by Discern Expert. Performed By: #### 1 [id number], 0234803, 56452938, 54541648, 3532721, 44581078, 0286750, 3732369, 9811307, 7628429 ####[facility] [address] [place] [address] 36on 07-03-2023 36 Unable to reach pt . Phone not in service [facility] 36 Pts phone number not in service. Spoke to pts friend Arvind and requested he have pt call us, he agrees. [facility] Documentationon 07-03-2023 Documentation [id number] Viivan Vann 1960 F Date Provider Department Center 07/03/2023 [address]95[facility] No family history on file Reason for Visit and Comments: HF inpatient satisfaction robyn sent. [Other] [facility] 30on 07-02-2023 30 The patient is [...] and behaviors that affect risk of falls [place] fall precautions as indicated by assessment Educate [...] and prevent overall improvement and discharge Normal [facility] 30 The patient is Moderately Stable [...] and behaviors that affect risk of falls [place] fall precautions as indicated by assessment Educate [...] and prevent overall improvement and discharge Normal [facility] BASIC METABOLIC PANELon 06-14 Anion gap [Moles/Vol] 11 mmol/L Normal 7-20 [facility] Comment on above: Performed By: #### L [id number] #### [facility] ([facility]) [address] [place] [address] Calcium [Mass/Vol] 9.0 mg/dL Normal 8.6-10.3 [facility] Comment on above: Performed By: #### L [id number] #### [facility] ([facility]) [address] [place] [address] Chloride [Moles/Vol] 91 mmol/L Low 98-107 [facility] Comment on above: Performed By: #### L [id number] #### [facility] [address] [place] [address] CO2 [Moles/Vol] 37 mmol/L High 21-31 [facility] Comment on above: Performed By: #### L [id number] #### [facility] [address] [place] [address] Creatinine [Mass/Vol] 0.89 mg/dL Normal 0.60-1.20 [facility] Comment on above: Performed By: #### L [id number] #### [facility] [address] [place] [address] GLOMERULAR FILTRATION RATE ML/MIN/1.73 SQ M.PREDICTED 73.3 mL/min/1.73m*2 Normal >60.[address] [facility] Comment on above: Result Comment: [facility]???s estimated glomerular filtration rate (eGFR) will [...] individuals. Performed By: #### L [id number] #### [facility] ([facility]) [address] [place] [address] Glucose [Mass/Vol] 123 mg/dL High 70-100 [facility] Comment on above: Performed By: #### L [id number] #### [facility] ([facility]) [address] [place] [address] Potassium [Moles/Vol] 3.7 mmol/L Normal 3.5-5.1 [facility] Comment on above: Performed By: #### L [id number] #### [facility] ([facility]) [address] [place] [address] Sodium [Moles/Vol] 135 mmol/L Low 136-145 [facility] Comment on above: Performed By: #### L [id number] #### [facility] [address] [place] [address] Urea nitrogen [Mass/Vol] 29 mg/dL High 7-25 [facility] Comment on above: Performed By: #### L [id number] #### [facility] [address] [place] [address] UREA NITROGEN/CREATININE (MASS RATIO) IN SER/PLAS 32.6 Normal [facility] Comment on above: Performed By: #### L [id number] #### [facility] ([facility]) [address] [place] [address] CBCon 07-02-2023 Erythrocyte distribution width (RBC) [Ratio] 15.8 % High 11.5-15.0 [facility] Comment on above: Performed By: #### L [id number] ####[facility] ([facility])[address] [place] [address] ERYTHROCYTE MEAN CORPUSCULAR HEMOGLOBIN CONCENTRATION (G/DL) BY AUTOMATED 31.8 g/dL Low 32.0-35.0 [facility] Comment on above: Performed By: #### L [id number] ####[facility] ([facility] [place] [address] Hematocrit (Bld) [Volume fraction] 44.0 % Normal 36.0-48.0 [facility] Comment on above: Performed By: #### L [id number] ####[facility] ([facility] [place] [address] Hemoglobin (Bld) [Mass/Vol] 14.0 g/dL Normal 12.0-15.0 [facility] Comment on above: Performed By: #### L [id number] ####[facility] ([facility] [place] [address] MCH (RBC) [Entitic mass] 27.9 pg Normal 27.0-33.0 [facility] Comment on above: Performed By: #### L [id number] ####[facility] ([facility])[address] [place] [address] MCV (RBC) [Entitic vol] 87.8 fL Normal 82.0-98.0 [facility] Comment on above: Performed By: #### L [id number] ####[facility] ([facility])[address] [place] [address] PLATELETS (10*3/UL) IN BLOOD AUTOMATED COUNT 285 10*3/uL Normal 150-400 [facility] Comment on above: Performed By: #### L [id number] ####[facility] ([facility])[address] [place] [address] RBC (Bld) [#/Vol] 5.01 10*6/uL High 3.80-5.00 [facility] Comment on above: Performed By: #### L [id number] ####[facility] ([facility])[address] [place] [address] WBC (Bld) [#/Vol] 8.89 10*3/uL Normal 4.00-10.60 [facility] Comment on above: Performed By: #### L [id number] ####[facility] ([facility])[address] [place] [address] DSon 07-02-2023 DS Admit Date 06/29/2023 Discharge Date 07/02/2023 Discharge Diagnosis NSTEMI Acute on chronic HFpEF NYHA class 2 CAD DMII noninsulin dependent Chronic pain Anxiety GERD Tobacco abuse Discharge Disposition Home-Health Care [facility] () Discharge Medications Your [...] to [facility] [place], [place] - [address] [facility] [place] [address] [address] [facility] [place] [address], [facility] [address] furosemide 40 mg tablet spironolactone 25 mg tablet Activity Normal activity as tolerated Diet Continue on the same type of diet and foods as you were eating before your admission. Drink plenty of water. Allergies Hay fever and allergy relief and House dust Hospital Course History of Present Illness Vivian Vann is an 63 y.o. female who came from [facility] as direct asmission for NSTEMI. Patient presented 06/28/23 to [place] ED for c/o chest pain and lower back pain. Patient troponin level found to be 557 and EKG showed new ischemia and inverted T-waves, NSTEMI. She was given nitroglycerin and started on heparin drip. Patient is 1 year s/p stent placement at [facility] on plavix and aspirin. Dr. Chapa with cardiology agreed to patient transfer here to [facility] with hospital medicine admitting and cardiology [...] Low back pending. Laboratory workup here at [facility] shows CBC unremarkable w/ exception of [...] General: Abdo (more content not included)... Normal [facility] POCT GLUCOSE METER UNSOLICIT ED RESULTSon 07-02-2023 Glucose [Mass/Vol] 117 mg/dL High 70-105 [facility] Comment on above: Order Comment: Waive d Testing in the ED is performed under the ED CLIA certificate #[id number]. Result Comment: [email or web address] Performed By: #### L [id number] #### [facility] ([facility]) [address] [place] [address] Glucose [Mass/Vol] 110 mg/dL High 70-105 [facility] Comment on above: Order Comment: Waive d Testing in the ED is performed under the ED CLIA certificate #[id number]. Result Comment: [email or web address] Performed By: #### L [id number] ####[facility] ([facility])[address] [place] [address] 30on 07-01-2023 30 The patient is Moderately [...] and behaviors that affect risk of falls [place] fall precautions as indicated by assessment Educate [...] and prevent overall improvement and discharge Normal [facility] BASIC METABOLIC PANELon 06-14 Anion gap [Moles/Vol] 10 mmol/L Normal 7-20 [facility] Comment on above: Performed By: #### L [id number] ####[facility] (BE[facility]ER)[address] [place] [address] Calcium [Mass/Vol] 8.3 mg/dL Low 8.6-10.3 [facility] Comment on above: Performed By: #### L [id number] ####[facility] ([facility])[address] [place] [address] Chloride [Moles/Vol] 98 mmol/L Normal 98-107 [facility] Comment on above: Performed By: #### L [id number] ####[facility] ([facility])[address] [place] [address] CO2 [Moles/Vol] 35 mmol/L High 21-31 [facility] Comment on above: Performed By: #### L [id number] ####[facility] ([facility])[address] [place] [address] Creatinine [Mass/Vol] 1.08 mg/dL Normal 0.60-1.20 [facility] Comment on above: Performed By: #### L [id number] ####[facility] ([facility])[address] [place] [address] GLOMERULAR FILTRATION RATE ML/MIN/1.73 SQ M.PREDICTED 58.1 mL/min/1.73m*2 Low >60.[address] [facility] Comment on above: Result Comment: [facility]???s estimated glomerular filtration rate (eGFR) will [...] of individuals. Performed By: #### L [id number] ####[facility] ([facility])[address] [place] [address] Glucose [Mass/Vol] 116 mg/dL High 70-100 [facility] Comment on above: Performed By: #### L [id number] ####[facility] ([facility] [place] [address] Potassium [Moles/Vol] 3.7 mmol/L Normal 3.5-5.1 [facility] Comment on above: Performed By: #### L [id number] ####[facility] ([facility])[address] [place] [address] Sodium [Moles/Vol] 139 mmol/L Normal 136-145 [facility] Comment on above: Performed By: #### L [id number] ####[facility] ([facility])[address] [place] [address] Urea nitrogen [Mass/Vol] 27 mg/dL High 7-25 [facility] Comment on above: Performed By: #### L [id number] ####[facility] ([facility])[address] [place] [address] UREA NITROGEN/CREATININE (MASS RATIO) IN SER/PLAS 25.0 Normal [facility] Comment on above: Performed By: #### L [id number] ####[facility] ([facility])[address] [place] [address] POCT GLUCOSE METER UNSOLICIT ED RESULTSon 07-01-2023 Glucose [Mass/Vol] 132 mg/dL High 70-105 [facility] Comment on above: Order Comment: Waive d Testing in the ED is performed under the ED CLIA certificate #[id number]. Result Comment: [email or web address] Performed By: #### L [id number] ####[facility] ([facility])[address] [place] [address] Glucose [Mass/Vol] 106 mg/dL High 70-105 [facility] Comment on above: Order Comment: Waive d Testing in the ED is performed under the ED CLIA certificate #[id number]. Result Comment: mick rad Performed By: #### L [id number] #### [facility] ([facility]) [address] [place] [address] Glucose [Mass/Vol] 121 mg/dL High 70-105 [facility] [facility] Comment on above: Order Comment: Waive d Testing in the ED is performed under the ED CLIA certificate #[id number]. Result Comment: [email or web address] rad Performed By: #### L [id number] ####[facility] ([facility])[address] [place] [address] Glucose [Mass/Vol] 105 mg/dL Normal 70-105 [facility] Comment on above: Order Comment: Waive d Testing in the ED is performed under the ED CLIA certificate #[id number]. Result Comment: wwar rad Performed By: #### L [id number] ####[facility] ([facility])[address] [place] [address] 30on 06-30-2023 30 The patient is Moderately [...] and maintained or improved Outcome: Progressing Normal [facility] ANTI-XA (HEPARIN LEVEL)on HEPARIN UNFRACTIONATED (U/ML) IN PPP BY CHROMOGENIC METHOD <0.10 Invalid Interpretation Code 0.3-0.7 [facility] Comment on above: Order Comment: Check anti-Xa level every 6 hours while on heparin infusion, or per protocol. Result Comment: Clare roxaban and Apixaban will interfere with the anti Xa assay used to monitor UFH and LMWH. Performed By: #### L [id number] #### [facility] ([facility]) [address] [place] [address] CBCon 06-30-2023 Erythrocyte distribution width (RBC) [Ratio] 15.3 % High 11.5-15.0 [facility] Comment on above: Performed By: #### L [id number] ####[facility] ([facility])[address] [place] [address] ERYTHROCYTE MEAN CORPUSCULAR HEMOGLOBIN CONCENTRATION (G/DL) BY AUTOMATED 32.2 g/dL Normal 32.0-35.0 [facility] Comment on above: Performed By: #### L [id number] ####[facility] ([facility])[address] [place] [address] Hematocrit (Bld) [Volume fraction] 35.7 % Low 36.0-48.0 [facility] Comment on above: Performed By: #### L [id number] ####[facility] ([facility])[address] [place] [address] Hemoglobin (Bld) [Mass/Vol] 11.5 g/dL Low 12.0-15.0 [facility] Comment on above: Performed By: #### L [id number] ####[facility] ([facility])[address] [place] [address] MCH (RBC) [Entitic mass] 28.1 pg Normal 27.0-33.0 [facility] Comment on above: Performed By: #### L [id number] ####[facility] ([facility])[address] [place] [address] MCV (RBC) [Entitic vol] 87.3 fL Normal 82.0-98.0 [facility] Comment on above: Performed By: #### L [id number] ####[facility] ([facility])[address] [place] [address] PLATELETS (10*3/UL) IN BLOOD AUTOMATED COUNT 219 10*3/uL Normal 150-400 [facility] Comment on above: Performed By: #### L [id number] ####[facility] ([facility])[address] [place] [address] RBC (Bld) [#/Vol] 4.09 10*6/uL Normal 3.80-5.00 [facility] Comment on above: Performed By: #### L [id number] ####[facility] ([facility])[address] [place] [address] WBC (Bld) [#/Vol] 10.22 10*3/uL Normal 4.00-10.60 [facility] Comment on above: Performed By: #### L [id number] ####[facility] ([facility]Y)[address] [place] [address] CONSULTon 06-30-2023 CONSULT Clinical Nutrition Assessment Name: [...] with questions and contact the dietitian via [employer] chat 8A-4P Sunday-Sunday. Or call the dietitian's office at extension [phone]. For weekends/holidays, the dietitian's can be reached by paging [phone] from 9A-3P. Unable to be reached via [employer] chat on Sunday & .) Normal [facility] HEMOGLOBIN A1Con 06-30-2023 Glucose [Mass/Vol] 143 mg/dL Normal [facility] Comment on above: Performed By: #### L [id number] #### [facility] ([facility]) [address] [place] [address] HbA1c (Bld) [Mass fraction] 6.6 % High 4.0-6.0 [facility] Comment on above: Performed By: #### L [id number] #### [facility] ([facility]) [address] [place] [address] LACTIC ACID WITH 4 HOUR REFL EXon 06-30-2023 LACTATE (MMOL/L) IN SER/PLAS 1.9 mmol/L Normal 0.5-2.2 [facility] Comment on above: Performed By: #### L [id number] #### [facility] ([facility]) [address] [place] [address] POCT GLUCOSE METER UNSOLICIT ED RESULTSon 06-30-2023 Glucose [Mass/Vol] 156 mg/dL High 70-105 [facility] Comment on above: Order Comment: Waive d Testing in the ED is performed under the ED CLIA certificate #[id number]. Result Comment: [email or web address] Performed By: #### L [id number] #### [facility] ([employer]) [address] [place] [address] Glucose [Mass/Vol] 149 mg/dL High 70-105 [facility] Comment on above: Order Comment: Waive d Testing in the ED is performed under the ED CLIA certificate #[id number]. Result Comment: [email or web address] [email or web address] Performed By: #### L [id number] #### [facility] ([employer]) [address] [place] [address] Glucose [Mass/Vol] 181 mg/dL High 70-105 [facility] Comment on above: Order Comment: Waive d Testing in the ED is performed under the ED CLIA certificate #[id number]. Result Comment: [email or web address] [email or web address] Performed By: #### L [id number] #### [facility] ([facility]) [address] [place] [address] 30on 06-29-2023 30 The patient is Moderately [...] and maintained or improved Outcome: Progressing Normal [facility] 30 The patient is Moderately Stable - Low risk of patient condition declining or worsening The patient's goals for the shift include no chest pain The clinical goals for the shift include vss Over the shift, the patient did not make progress toward the following goals. Barriers to progression include . Recommendations to address these barriers include . Normal [facility] APTTon 06-29-2023 ACTIVATED PARTIAL THROMBOPLASTIN TIME IN PPP BY COAGULATION ASSAY 67.3 Seconds High 25.0-35.0 [facility] Comment on above: Result Comment: Clin ical significance of the APTT is questionable in the presence of heparin. Performed By: #### L [id number] #### [facility] ([facility]) [address] [place] [address] B-TYPE NATRIURETIC PEPTIDEon 06-29-2023 Natriuretic peptide B (Bld) [Mass/Vol] 1683 pg/mL High 0-100 [facility] Comment on above: Performed By: #### L [id number] #### [facility] ([facility]) [address] [place] [address] BASIC METABOLIC PANELon 06-14 Anion gap [Moles/Vol] 14 mmol/L Normal 7-20 [facility] Comment on above: Performed By: #### L [id number] #### [facility] ([facility]) [address] [place] [address] Calcium [Mass/Vol] 8.2 mg/dL Low 8.6-10.3 [facility] Comment on above: Performed By: #### L [id number] #### [facility] [address] [place] [address] Chloride [Moles/Vol] 102 mmol/L Normal 98-107 [facility] Comment on above: Performed By: #### L [id number] #### [facility]) [address] [place] [address] CO2 [Moles/Vol] 25 mmol/L Normal 21-31 [facility] Comment on above: Performed By: #### L [id number] #### [facility] LAB ([facility] [address] [place] [address] Creatinine [Mass/Vol] 1.04 mg/dL Normal 0.60-1.20 [facility] Comment on above: Performed By: #### L [id number] #### [facility] ([facility]) [address] [place] [address] GLOMERULAR FILTRATION RATE ML/MIN/1.73 SQ M.PREDICTED 60.8 mL/min/1.73m*2 Normal >60.[address] [facility] Comment on above: Result Comment: [facility]???s estimated glomerular filtration rate (eGFR) will [...] individuals. Performed By: #### L [id number] #### [facility] [address] [place] [address] Glucose [Mass/Vol] 268 mg/dL High 70-100 [facility] Comment on above: Performed By: #### L [id number] #### [facility] ([facility]) [address] [place] [address] Potassium [Moles/Vol] 4.1 mmol/L Normal 3.5-5.1 [facility] Comment on above: Performed By: #### L [id number] #### [facility] ([facility]) [address] [place] [address] Sodium [Moles/Vol] 137 mmol/L Normal 136-145 [facility] Comment on above: Performed By: #### L [id number] #### [facility] ([facility]) [address] [place] [address] Urea nitrogen [Mass/Vol] 14 mg/dL Normal 7-25 [facility] Comment on above: Performed By: #### L [id number] #### [facility] ([facility]) [address] [place] [address] UREA NITROGEN/CREATININE (MASS RATIO) IN SER/PLAS 13.5 Normal [facility] Comment on above: Performed By: #### L [id number] #### [facility] ([facility]) [address] [place] [address] CBCon 06-29-2023 Erythrocyte distribution width (RBC) [Ratio] 15.3 % High 11.5-15.0 [facility] Comment on above: Performed By: #### L [id number] #### [facility] ([facility]) [address] [place] [address] ERYTHROCYTE MEAN CORPUSCULAR HEMOGLOBIN CONCENTRATION (G/DL) BY AUTOMATED 31.8 g/dL Low 32.0-35.0 [facility] Comment on above: Performed By: #### L [id number] #### [facility] ([facility]) [address] [place] [address] Hematocrit (Bld) [Volume fraction] 39.3 % Normal 36.0-48.0 [facility] Comment on above: Performed By: #### L [id number] #### [facility] ([facility]) [address] [place] [address] Hemoglobin (Bld) [Mass/Vol] 12.5 g/dL Normal 12.0-15.0 [facility] Comment on above: Performed By: #### L [id number] #### [facility] ([facility]) [address] [place] [address] MCH (RBC) [Entitic mass] 28.4 pg Normal 27.0-33.0 [facility] Comment on above: Performed By: #### L [id number] #### [facility] ([facility]) [address] [place] [address] MCV (RBC) [Entitic vol] 89.3 fL Normal 82.0-98.0 [facility] Comment on above: Performed By: #### L [id number] #### [facility] ([facility]) [address] [place] [address] PLATELETS (10*3/UL) IN BLOOD AUTOMATED COUNT 218 10*3/uL Normal 150-400 [facility] Comment on above: Performed By: #### L [id number] #### [facility] ([facility]) [address] [place] [address] RBC (Bld) [#/Vol] 4.40 10*6/uL Normal 3.80-5.00 [facility] Comment on above: Performed By: #### L [id number] #### [facility] ([facility]) [address] [place] [address] WBC (Bld) [#/Vol] 9.91 10*3/uL Normal 4.00-10.60 [facility] Comment on above: Performed By: #### L [id number] #### [facility] ([facility]) [address] [place] [address] COMPREHENSIVE METABOLIC PANE Pollo 06-29-2023 Albumin [Mass/Vol] 3.8 g/dL Normal 3.5-5.7 [facility] Comment on above: Performed By: #### L [id number] #### [facility] [address] [place] [address] ALP [Catalytic activity/Vol] 77 U/L Normal 34-104 [facility] Comment on above: Performed By: #### L [id number] #### [facility] ([facility]) [address] [place] [address] ALT [Catalytic activity/Vol] 23 U/L Normal 7-52 [facility] Comment on above: Performed By: #### L [id number] #### [facility] ([facility]) [address] [place] [address] Anion gap [Moles/Vol] 10 mmol/L Normal 7-20 [facility] Comment on above: Performed By: #### L [id number] #### [facility] ([facility]) [address] [place] [address] AST [Catalytic activity/Vol] 23 U/L Normal 13-39 [facility] Comment on above: Performed By: #### L [id number] #### [facility] ([facility]) [address] [place] [address] Bilirubin [Mass/Vol] 0.4 mg/dL Normal 0.3-1.0 [facility] Comment on above: Performed By: #### L [id number] #### [facility] ([facility] [address] [place] [address] Calcium [Mass/Vol] 8.6 mg/dL Normal 8.6-10.3 [facility] Comment on above: Performed By: #### L [id number] #### [facility] ([facility] [address] [place] [address] Chloride [Moles/Vol] 107 mmol/L Normal 98-107 [facility] Comment on above: Performed By: #### L [id number] #### [facility] [address] [place] [address] CO2 [Moles/Vol] 27 mmol/L Normal 21-31 [facility] Comment on above: Performed By: #### L [id number] #### [facility] ([facility]) [address] [place] [address] Creatinine [Mass/Vol] 1.01 mg/dL Normal 0.60-1.20 [facility] Comment on above: Performed By: #### L [id number] #### [facility] ([facility]) [address] [place] [address] GLOMERULAR FILTRATION RATE ML/MIN/1.73 SQ M.PREDICTED 62.9 mL/min/1.73m*2 Normal >60.[address] [facility] Comment on above: Result Comment: [facility]???s estimated glomerular filtration rate (eGFR) will [...] individuals. Performed By: #### L [id number] #### [facility] ([facility]) [address] [place] [address] Glucose [Mass/Vol] 148 mg/dL High 70-100 [facility] Comment on above: Performed By: #### L [id number] #### [facility] [address] [place] [address] Potassium [Moles/Vol] 4.2 mmol/L Normal 3.5-5.1 [facility] Comment on above: Performed By: #### L [id number] #### [facility] ([facility]) [address] [place] [address] Protein [Mass/Vol] 6.3 g/dL Normal 6.0-8.3 [facility] Comment on above: Performed By: #### L [id number] #### [facility] ([facility]) [address] [place] [address] Sodium [Moles/Vol] 140 mmol/L Normal 136-145 [facility] Comment on above: Performed By: #### L [id number] #### [facility] ([facility]) [address] [place] [address] Urea nitrogen [Mass/Vol] 10 mg/dL Normal 7-25 [facility] Comment on above: Performed By: #### L [id number] #### [facility] ([facility]) [address] [place] [address] UREA NITROGEN/CREATININE (MASS RATIO) IN SER/PLAS 9.9 Normal [facility] Comment on above: Performed By: #### L [id number] #### [facility] ([facility]) [address] [place] [address] CONSULTon 06-29-2023 CONSULT - Attestation signed by [...] tobacco use comes as a transfer from [facility] due to suspected NSTEMI. Patient was complaining [...] Her troponins were elevated at 557 at [facility] and recheck here shows 0.07. Patient continues [...] Value Ventricular Rate 61 Atrial Rate 61 HI Interval 150 (more content not included)... Normal [facility] HPon 06-29-2023 HP Interval Pre-Procedural H&P Reason for Consult: NSTEMI HPI: Vivian Vann is a 63 y.o. female with PMH of CAD s/p PCI to LAD (October 2021), HTN, HLD, COPD, tobacco use comes as a transfer from [facility] due to suspected NSTEMI. Patient was complaining [...] Her troponins were elevated at 557 at [facility] and recheck here shows 0.07. Patient continues [...] Value Ventricular Rate 61 Atrial Rate 61 HI Interval 150 QRS DURATION 88 QT Interval 476 QTC CALCULATION(BAZETT) 479 P [place] 68 R-[place] 25 T Wave [place] 128 Impression Normal sinus rhythm Right atrial [...] deformity. End (more content not included)... Normal [facility] LACTIC ACID WITH 4 HOUR REFL EXon 06-29-2023 LACTATE (MMOL/L) IN SER/PLAS 3.6 mmol/L Critically high 0.5-2.2 [facility] Comment on above: Result Comment: M-HI EVIOUS CRITICAL RESULT Previous result verified on 06/29/2023 1809 on specimen/case [id number] called with component Lactate blood venous for procedure Lactic acid with 4 hour reflex with value 2.7 mmol/L. Performed By: #### L [id number] #### [facility] [address] [place] [address] LACTATE (MMOL/L) IN SER/PLAS 2.7 mmol/L Critically high 0.5-2.2 [facility] Comment on above: Performed By: #### L [id number] #### [facility] [address] [place] [address] LACTATE (MMOL/L) IN SER/PLAS 2.5 mmol/L High 0.5-2.2 [facility] Comment on above: Performed By: #### L [id number] ####[facility] ([facility])[address] [place] [address] MAGNESIUMon 02-16-2024 Magnesium [Mass/Vol] 2.1 mg/dL Normal 1.9-2.7 [facility] Comment on above: Performed By: #### L [id number] ####[facility] ([facility])[address] [place] [address] Magnesium [Mass/Vol] 2.2 mg/dL Normal 1.9-2.7 [facility] Comment on above: Performed By: #### L [id number] #### [facility] ([facility]) [address] [facility] [place] [address] Magnesium [Mass/Vol] 1.7 mg/dL Low 1.9-2.7 [facility] Comment on above: Performed By: #### L [id number] #### [facility] ([facility]) [address] [facility] [place] [address] NURSNOTEon 06-29-2023 NURSNOTE Notified [place] [facility]ist critical lactate 2.7 no orders received said she would recheck lactate in 4 hrs Normal [facility] PHOSPHORUSon 06-29-2023 Magnesium [Mass/Vol] 3.5 mg/dL Normal 2.5-5.0 [facility] Comment on above: Performed By: #### L [id number] #### [facility] ([facility]) [address] [facility] [place] [address] PROTIME-INRon 06-29-2023 INR IN PPP BY COAGULATION ASSAY 0.98 Normal 0.90-1.10 [facility] Comment on above: Result Comment: ACCC [...] CHEST 1995;[id number]. Performed By: #### L [id number] ####[facility] ([facility])[address] [place] [address] PROTHROMBIN TIME (PT) IN PPP BY COAGULATION ASSAY 13.0 Seconds Normal 12.3-14.8 [facility] Comment on above: Performed By: #### L [id number] ####[facility] ([facility])[address] [place] [address] TROPONIN Ion 06-29-2023 Troponin I.cardiac [Mass/Vol] 0.06 ng/mL High 0.00-0.04 [facility] Comment on above: Performed By: #### L [id number] #### [facility] ([facility]) [address] [place] [address] Troponin I.cardiac [Mass/Vol] 0.07 ng/mL High 0.00-0.04 [facility] Comment on above: Performed By: #### L [id number] ####[facility] ([facility])[address] [place] [address] Troponin I.cardiac [Mass/Vol] 0.07 ng/mL High 0.00-0.04 [facility] Comment on above: Performed By: #### L [id number] #### [facility] ([facility]) [address] [place] [address] CBC W MANUAL DIFFon 08-25-19 23 ANISOCYTOSIS 1+ Normal [facility] Comment on above: Performed By: ###Daniela PONCE ####[facility] [address] [place], [place] [address]Ab. Nahed Yañez ATYPICAL LYMPH # Normal [facility] Comment on above: Performed By: ###Daniela PONCE ####[facility] [address] [place] [id number]. Nahed Yañez ATYPICAL LYMPH % Normal [facility] Comment on above: Performed By: #### C BCMAN ####[facility] [address] [place] [address]Dr. Yilan Yañez BAND # 0.2 103/ul Normal 0.0-0.3 [facility] Comment on above: Performed By: #### C BCMAN ####[facility] [address] [place] [address]Dr. Yilan Yañez BAND % 1 % Normal 0-5 [facility] Comment on above: Performed By: #### C BCISAIAH ####[facility] [address] [place], [place] [address]Dr. Nahed Yañez BASOM # 0.00 103/ul Normal 0.00-0.10 [facility] Comment on above: Performed By: #### C ROSARIO ####[facility] [address] [place], [place] [address]Dr. Nahed Yañez BASOM % 0.0 % Critically low 0.2-2.0 [facility] Comment on above: Performed By: #### C ROSARIO ####[facility] [address] [place], [place] [address]Dr. Nahed Yañez BLAST # Normal [facility] Comment on above: Performed By: #### C ROSARIO ####[facility] [address] [place], [place] [address]Dr. Nahed Yañez BLAST % Normal [facility] Comment on above: Performed By: #### C BCISAIAH ####[facility] [address] [place] [address]Dr. Nahed Yañez CORRECTED WBC Normal 4.0-11.0 [facility] Comment on above: Performed By: #### C ROSARIO ####[facility] [address] [place], [place] [address]Dr. Nahed Yañez EOS # 0.00 103/ul Normal 0.00-0.70 [facility] Comment on above: Performed By: #### C BCISAIAH ####[facility] [address] [place], [place] [address]Og. Nahed Yañez EOS% 0.0 % Critically low 0.9-7.0 [facility] Comment on above: Performed By: #### C ROSARIO ####[facility] [address] [place] [id number]. Nahed Yañez HCT 33.9 % Critically low 36.0-48.0 [facility] Comment on above: Performed By: #### C ROSARIO ####[facility] [address] [place], [place] [address]Rg. Nahed Yañez HGB 10.8 g/dl Critically low 12.0-16.0 [facility] Comment on above: Performed By: #### C ROSARIO ####[facility] [address] [place] [id number]. Nahed Yañez HYPOCHROMASIA SLIGHT Normal [facility] Comment on above: Performed By: #### C ROSARIO ####[facility] [address] [place] [id number]. Nahed Yañez LYMPHM # 2.59 103/ul Normal 1.20-3.80 [facility] Comment on above: Performed By: #### Isabell PONCE ####[facility] [address] [place] [id number]. Nahed Yañez LYMPHM% 16.0 % Critically low 20.5-60.0 [facility] Comment on above: Performed By: #### Isabell PONCE ####[facility] [address] [place] [id number]. Nahed Yañez MCH 28.5 pg Normal 26.7-34.0 [facility] Comment on above: Performed By: #### C ROSARIO ####[facility] [address] [place] [id number]. Nahed Yañez MCHC 31.9 g/dl Normal 29.9-35.2 [facility] Comment on above: Performed By: #### C ROSARIO ####[facility] [address] [place] [id number]. Nahed Yañez MCV 89.4 fL Normal 81.0-99.0 [facility] Comment on above: Performed By: #### C ROSARIO ####[facility] [address] [place] [id number]. Nahed Yañez METAMYELOCYTE # Normal [facility] Comment on above: Performed By: #### C ROSARIO ####[facility] [address] [place] [id number]. Nahed Yañez METAMYELOCYTE % Normal [facility] Comment on above: Performed By: #### C ROSARIO ####[facility] [address] [place] [id number]. Nahed Yañez MONOM# 1.30 103/ul Critically high 0.30-0.80 [facility] Comment on above: Performed By: #### C ROSARIO ####[facility] [address] [place] [id number]. Nahed Yañez MONOM% 8.0 % Normal 1.7-12.0 [facility] Comment on above: Performed By: #### C ROSARIO ####[facility] [address] [place] [id number]. Nahed Otilio MPV 9.8 fL Normal 9.5-13.5 [facility] Comment on above: Performed By: #### Isabell PONCE ####[facility] [address] [place] [id number]. Nahed Yañez MYELOCYTE # Normal [facility] Comment on above: Performed By: #### Isabell PONCE ####[facility] [address]rys[address] [place] [id number]. Nahed Yañez MYELOCYTE % Normal [facility] Comment on above: Performed By: #### Isabell PONCE ####[facility] [address] [place], [place] [address]Dr. Nahed Yañez NRBC Normal [facility] Comment on above: Performed By: #### Isabell PONCE ####[facility] [address] [place] [id number]. Rosemarieashley Otilio PLT 302 103/ul Normal 150-450 [facility] Comment on above: Performed By: #### C ROSARIO ####[facility] [address] [place], [place] [address]Ju. Nahed Yañez RBC 3.79 106/ul Critically low 4.20-5.40 [facility] Comment on above: Performed By: #### C ROSARIO ####[facility] [address] [place], [place] [address]Pm. Nahed Yañez RDW 15.3 % Critically high 11.0-15.0 [facility] Comment on above: Performed By: #### C ROSARIO ####[facility] [address] [place], [place] [address]Xp. Nahed Yañez SEG # 12.15 103/ul Critically high 1.40-6.50 [facility] Comment on above: Performed By: #### C ROSARIO ####[facility] Qpvxc[address]stgc80[address] [place], [place] [address]Mb. Nahed Yañez SEG % 75.0 % Normal 43.0-75.0 [facility] Comment on above: Performed By: #### C ROSARIO ####[facility] [address] [place], [place] [address]Hs. Nahed Otilio WBC 16.2 103/ul Critically high 4.0-11.0 [facility] Comment on above: Performed By: #### C ROSARIO ####[facility] [address]se[address] [place], [place] [address]FsShaun Yañez POINT OF CARE GLUCOSEon 08-12 Glucose [Mass/Vol] 221 mg/dL Critically high 74-106 [facility] Comment on above: Performed By: #### P OCGLUC ####[facility] [address] [place], [place] [address]NoShaun Yañez PROF 14(COMP METB)on 023 Albumin [Mass/Vol] 2.2 g/dL Critically low 3.4-5.0 [facility] Comment on above: Performed By: #### C JUDY MULLER ####[facility] [address] [place] [id number] Yañez Albumin/Globulin [Mass ratio] 0.6 {ratio} Normal [facility] Comment on above: Performed By: #### C RENZO, JUDY ####[facility] [address] [place], [place] [address]Dr. Nahed Yañez ALP [Catalytic activity/Vol] 87 U/L Normal 46-116 [facility] Comment on above: Performed By: #### C RENZO, JUDY ####[facility] [address]if[address]of[address] [place], [place] [address]Dr. Nahed Yañez ALT [Catalytic activity/Vol] 17 U/L Normal 14-59 [facility] Comment on above: Performed By: #### C RENZO, JUDY ####[facility] Qpfqabkhib[address] [place], [place] [address]Dr. Nahed Yañez Anion gap [Moles/Vol] 9.4 mmol/L Normal [facility] Comment on above: Performed By: #### C RENZO, JUDY ####[facility] Cfzvf[address] [place], [place] [address]Dr. Nahed Yañez AST [Catalytic activity/Vol] 13 U/L Critically low 15-37 [facility] Comment on above: Performed By: #### C RENZO, JUDY ####[facility] Typndbjgcd[address] [place], [place] [address]Dr. Nahed Yañez Bilirubin [Mass/Vol] 0.2 mg/dL Normal 0.2-1.0 [facility] Comment on above: Performed By: #### C RENZO, JUDY ####[facility] [address] [place], [place] [address]Dr. Nahed Otilio Calcium [Mass/Vol] 9.1 mg/dL Normal 8.5-10.1 [facility] Comment on above: Performed By: #### C RENZO, JUDY ####[facility] Y[address] [place], [place] [address]Dr. Nahed Otilio Chloride [Moles/Vol] 103 mmol/L Normal 98-107 [facility] Comment on above: Performed By: #### C RENZO, JUDY ####[facility] [address] [place], [place] [address]Dr. Nahed Yañez CO2 [Moles/Vol] 29.1 mmol/L Normal 21.0-32.0 [facility] Comment on above: Performed By: #### C RENZO, JUDY ####[facility] [address] [place] [address]Dr. Nahed Yañez Creatinine [Mass/Vol] 1.05 mg/dL Critically high 0.55-1.02 [facility] Comment on above: Performed By: #### C RENZO, JUDY ####[facility] [address] [place] [address]Dr. Nhaed Yañez EGFR-AF [place] >60 Normal >=60 [facility] Comment on above: Performed By: #### C RENZO, JUDY ####[facility] [address] [place] [address]Dr. Nahed Yañez EGFR-NON AF [place] 53 mL/min/1.73m2 Critically low >=60 [facility] Comment on above: Performed By: #### C RENZO, JUDY ####[facility] Rx[address] [place], [place] [address]Dr. Nahed Yañez Globulin (S) [Mass/Vol] 3.5 g/dL Normal [facility] Comment on above: Performed By: #### C RENZO, JUDY ####[facility] [address] [place] [address]Dr. Nahed Yañez Glucose [Mass/Vol] 121 mg/dL Critically high 74-106 [facility] Comment on above: Performed By: #### C RENZO, JUDY ####[facility] [address]rm[address] [place] [address]Dr. Nahed Yañez Potassium [Moles/Vol] 4.5 mmol/L Normal 3.5-5.1 [facility] Comment on above: Performed By: #### C RENZO, JUDY ####[facility] [address] [place] [address]Dr. Nahed Yañez Protein [Mass/Vol] 5.7 g/dL Critically low 6.4-8.2 Th [facility] Comment on above: Performed By: #### C RENZO, JUDY ####[facility] [address]xs[address] [place] [address]Dr. Nahed Yañez Sodium [Moles/Vol] 137 mmol/L Normal 136-145 [facility] Comment on above: Performed By: #### C RENZO, JUDY ####[facility] [address] [place] [address]Dr. Nahed Yañez Urea nitrogen [Mass/Vol] 24.0 mg/dL Critically high 7.0-18.0 [facility] Comment on above: Performed By: #### C RENZO, JUDY ####[facility] [address] [place], [place] [address]Dr. Nahed Yañez Urea nitrogen/Creatinine [Mass ratio] 22.9 mg/mg Normal [facility] Comment on above: Performed By: #### C RENZO, JUDY ####[facility] Ewzsm[address] [place], [place] [address]Dr. Nahed Yañez THEOPHYLLINEon 08-24-2022 THEOPHYLLINE 18.2 ug/mL Normal 10.0-20.0 [facility] Comment on above: Performed By: #### C RENZO, JUDY ####[facility] Jovfgowfzx[address] [place], [place] [address]Dr. Nahde Yañez CBC W MANUAL DIFFon 08-24-19 23 ATYPICAL LYMPH # 0.20 103/ul Normal [facility] Comment on above: Performed By: #### C ROSARIO ####[facility] Pxkyetrkfd[address] [place], [place] [address]Dr. Nahed Otilio ATYPICAL LYMPH % 1 % Normal [facility] Comment on above: Performed By: #### C ROSARIO ####[facility] Xcuufsjric9[address] [place], [place] [address]Dr. Nahed Yañez BAND # 0.0 103/ul Normal 0.0-0.3 [facility] Comment on above: Performed By: #### C ROSARIO ####[facility] Kxuijcxqpr[address] [place], [place] [address]Dr. Nahed Yañez BAND % 0 % Normal 0-5 [facility] Comment on above: Performed By: #### C ROSARIO ####[facility] Kamqtxdgyi35[address] [place] [id number]. Nahed Yañez BASOM # 0.00 103/ul Normal 0.00-0.10 [facility] Comment on above: Performed By: #### C BCMAN ####[facility] Wuffvhboig38[address] [place] [id number]. Nahed Yañez BASOM % 0.0 % Critically low 0.2-2.0 [facility] Comment on above: Performed By: #### C BCMAN ####[facility] Vuebgygkje3960 [place] [id number]. Nahed Yañez BLAST # Normal [facility] Comment on above: Performed By: #### C BCISAIAH ####[facility] Zwducdezfm9634 [place] [address]Dr. Nahed Yañez BLAST % Normal [facility] Comment on above: Performed By: #### C BCISAIAH ####[facility] Psdqnuutjn[address] [place], [place] [address]Dr. Nahed Yañez CORRECTED WBC Normal 4.0-11.0 [facility] Comment on above: Performed By: #### C BCISAIAH ####[facility] Nuokettrrq4[address] [place] [address]Dr. Nahed Yañez EOS # 0.00 103/ul Normal 0.00-0.70 [facility] Comment on above: Performed By: #### C BCISAIAH ####[facility] Fugndtyaky[address] [place] [address]Dr. Nahed Yañez EOS% 0.0 % Critically low 0.9-7.0 [facility] Comment on above: Performed By: #### C BCMAN ####[facility] Ffhjuieako0022 [place] [id number]. Nahed Yañez HCT 33.5 % Critically low 36.0-48.0 [facility] Comment on above: Performed By: #### C BCMAN ####[facility] Wjseqbkiax5248 [place] [id number]. Nahed Yañez HGB 10.7 g/dl Critically low 12.0-16.0 The [facility] Comment on above: Performed By: #### C ROSARIO ####[facility] Dgkrbmwzuq3413 [place] [id number]. Nahed Yañez LYMPHM # 1.39 103/ul Normal 1.20-3.80 [facility] Comment on above: Performed By: #### C ROSARIO ####[facility] Kvpiipcfog6625 [place] [id number]. Nahed Yañez LYMPHM% 7.0 % Critically low 20.5-60.0 [facility] Comment on above: Performed By: #### C ROSARIO ####[facility] Vzhrkcomuo1352 [place] [address]Dr. Nahed Yañez MCH 28.5 pg Normal 26.7-34.0 [facility] Comment on above: Performed By: #### C ROSARIO ####[facility] Gjvqjmlfao4972 [place] [address]Dr. Nahed Yañez MCHC 31.9 g/dl Normal 29.9-35.2 [facility] Comment on above: Performed By: #### C ROSARIO ####[facility] Gacugrotuj[address] [place] [address]Dr. Nahed Yañez MCV 89.1 fL Normal 81.0-99.0 [facility] Comment on above: Performed By: #### C ROSARIO ####[facility] Xuyzliptch6[address] [place] [address]Dr. Nahed Yañez METAMYELOCYTE # Normal [facility] Comment on above: Performed By: #### C ROSARIO ####[facility] Vfuzvlcegj5648 [place] [id number]. Nahed Yañez METAMYELOCYTE % Normal [facility] Comment on above: Performed By: #### C ROSARIO ####[facility] Zskmpblzoe7817 [place] [address]Dr. Nahed Yañez MONOM# 0.40 103/ul Normal 0.30-0.80 [facility] Comment on above: Performed By: #### C ROSARIO ####[facility] Hnidrstpza2488 [place] [id number]. Nahed Yañez MONOM% 2.0 % Normal 1.7-12.0 [facility] Comment on above: Performed By: #### C ROSARIO ####[facility] Wovsfndhvs9151 [place] [id number]. Nahed Yañez MPV 10.0 fL Normal 9.5-13.5 [facility] Comment on above: Performed By: #### C ROSARIO ####[facility] Dnenjprimw5027 [place] [id number]. Nahed Yañez MYELOCYTE # Normal [facility] Comment on above: Performed By: #### C ROSARIO ####[facility] Rcwdnnkoun6555 [place] [id number]. Nahed Yañez MYELOCYTE % Normal [facility] Comment on above: Performed By: #### C ROSARIO ####[facility] Ndnxhfbxrb7833 [place] [address]Dr. Nahed Yañez NRBC Normal [facility] Comment on above: Performed By: #### C ROSARIO ####[facility] Sgshpnzelt5601 [place] [phone]. Nahed Yañez PLT 338 103/ul Normal 150-450 [facility] Comment on above: Performed By: #### C ROSARIO ####[facility] Pysugzrksr0193 [place] [phone]. Nahed Yañez RBC 3.76 106/ul Critically low 4.20-5.40 [facility] Comment on above: Performed By: #### C ROSARIO ####[facility] Tfqtnbmprd2904 [place] [id number]. Nahed Yañez RDW 15.3 % Critically high 11.0-15.0 [facility] Comment on above: Performed By: #### C ROSARIO ####[facility] Kagwxeoepn8855 [place] [phone]. Nahed Yañez SEG # 17.91 103/ul Critically high 1.40-6.50 [facility] Comment on above: Performed By: #### C ROSARIO ####[facility] Wyoijwyiky0458 [place] [phone]. Nahed Yañez SEG % 90.0 % Critically high 43.0-75.0 [facility] Comment on above: Performed By: #### C BCMAN ####[facility] Vwbwupesmc2069 [place] [phone]. Nahed Yañez WBC 19.9 103/ul Critically high 4.0-11.0 [facility] Comment on above: Performed By: #### C BCMAN ####[facility] Obzlemqwfz9241 [place] [address]Dr. Nahed Otilio POINT OF CARE GLUCOSEon 08-12 Glucose [Mass/Vol] 200 mg/dL Critically high 74-106 [facility] Comment on above: Performed By: #### P OCGLUC ####[facility] Uqbeirisys8272 [place] [address]Dr. Nahed Yañez Glucose [Mass/Vol] 131 mg/dL Critically high 74-106 [facility] Comment on above: Performed By: #### P OCGLUC ####[facility] Gahsukuetn5889 [place] [address]Dr. Nahed Yañez Glucose [Mass/Vol] 176 mg/dL Critically high 74-106 [facility] Comment on above: Performed By: #### P OCGLUC ####[facility] Tyjgqevapw7573 [place] [address]Dr. Rosemarieashley Yañez PROF 14(COMP METB)on 023 Albumin [Mass/Vol] 2.2 g/dL Critically low 3.4-5.0 [facility] Comment on above: Performed By: #### T RAFITA CMP ####[facility] Ippsvsngdd0121 [place] [address]Dr. Nahed Otilio Albumin/Globulin [Mass ratio] 0.6 {ratio} Normal [facility] Comment on above: Performed By: #### Nydia ELLER, CMP ####[facility] Alalexmakh3977 [place] [address]Dr. Nahed Otilio ALP [Catalytic activity/Vol] 101 U/L Normal 46-116 [facility] Comment on above: Performed By: #### Nydia ELLER CMP ####[facility] Meyamtpali4398 [place] [phone]. Nahed Yañez ALT [Catalytic activity/Vol] 19 U/L Normal 14-59 [facility] Comment on above: Performed By: #### Nydia ELLER, CMP ####[facility] Vehmwhouxs0257 [place] [address]Dr. Nahed Yañez Anion gap [Moles/Vol] 12.0 mmol/L Normal [facility] Comment on above: Performed By: #### Nydia ELLER CMP ####[facility] Fienngwyax5036 [place] [address]Dr. Nahed Yañez AST [Catalytic activity/Vol] 14 U/L Critically low 15-37 [facility] Comment on above: Performed By: #### Nydia ELLER CMP ####[facility] Hiwyltkhhb[address] [place], [place] [address]Dr. Nahed Yañez Bilirubin [Mass/Vol] 0.2 mg/dL Normal 0.2-1.0 [facility] Comment on above: Performed By: #### Nydia ELLER CMP ####[facility] Hadcghxsxh440[address] [place], [place] [address]Dr. Nahed Otilio Calcium [Mass/Vol] 9.5 mg/dL Normal 8.5-10.1 [facility] Comment on above: Performed By: #### Nydia ELLER, CMP ####[facility] Dudrxvspfk[address] [place], [place] [address]Dr. Nahed Yañez Chloride [Moles/Vol] 105 mmol/L Normal 98-107 [facility] Comment on above: Performed By: #### Nydia ELLER CMP ####[facility] Roywctkvnq[address] [place], [place] [address]Dr. Nahed Yañez CO2 [Moles/Vol] 27.9 mmol/L Normal 21.0-32.0 [facility] Comment on above: Performed By: #### Nydia ELLER, CMP ####[facility] Xsmkxhjrud380[address] [place], [place] [address]Dr. Nahed Yañez Creatinine [Mass/Vol] 1.08 mg/dL Critically high 0.55-1.02 [facility] Comment on above: Performed By: #### Nydia ELLER, CMP ####[facility] Jzouxlsudx6102 [place] [address]Dr. Rosemarieashley Otilio EGFR-AF KUWAITI >60 Normal >=60 [facility] Comment on above: Performed By: #### Nydia ELLER CMP ####[facility] Qmxzzfspky3226 [place] [address]Dr. Nahed Yañez EGFR-NON AF [place]I 52 mL/min/1.73m2 Critically low >=60 [facility] Comment on above: Performed By: #### Nydia ELLER CMP ####[facility] Wqesvllrfi646[address] [place], [place] [address]Dr. Nahed Yañez Globulin (S) [Mass/Vol] 3.7 g/dL Normal [facility] Comment on above: Performed By: #### Nydia ELLER CMP ####[facility] Jlbojwuzhy[address] [place], [place] [address]Dr. Nahed Yañez Glucose [Mass/Vol] 182 mg/dL Critically high 74-106 [facility] Comment on above: Performed By: #### Nydia ELLER CMP ####[facility] Hsstsyerkq165[address] [place], [place] [address]Dr. Nahed Yañez Potassium [Moles/Vol] 3.9 mmol/L Normal 3.5-5.1 [facility] Comment on above: Performed By: #### Nydia ELLER CMP ####[facility] Ytbmwyrztz87[address] [place], [place] [address]Dr. Nahed Yañez Protein [Mass/Vol] 5.9 g/dL Critically low 6.4-8.2 [facility] Comment on above: Performed By: #### Nydia ELLER CMP ####[facility] Bfcfohcyrx[address] [place], [place] [address]Dr. Nahed Yañez Sodium [Moles/Vol] 141 mmol/L Normal 136-145 [facility] Comment on above: Performed By: #### Nydia ELLER CMP ####[facility] Zzxgqjprmo674[address] [place], [place] [address]Dr. Nahed Yañez Urea nitrogen [Mass/Vol] 20.0 mg/dL Critically high 7.0-18.0 [facility] Comment on above: Performed By: #### Nydia ELLER, CMP ####[facility] Wdptnfbnkj[address] [place], [place] [address]Dr. Nahed Yañez Urea nitrogen/Creatinine [Mass ratio] 18.5 mg/mg Normal [facility] Comment on above: Performed By: #### Nydia ELLER, CMP ####[facility] Noaidinotu[address] [place], [place] [address]Dr. Nahed Yañez THEOPHYLLINEon 08-23-2022 THEOPHYLLINE 22.9 ug/mL Critically high 10.0-20.0 [facility] Comment on above: Performed By: #### Nydia ELLER CMP ####[facility] Enqjilladg236[address] [place], [place] [address]Dr. Nahed Yañez CBC AUTO DIFFon 08-22-2022 BASO # 0.0 103/ul Normal 0.0-0.1 [facility] Comment on above: Performed By: #### C BC ####[facility] Eiuztimnpt7[address] [place], [place] [address]Dr. Nahed Yañez Basophils/100 WBC (Bld) 0.1 % Critically low 0.2-2.0 [facility] Comment on above: Performed By: #### C BC ####[facility] Cwvygnbsgb[address] [place], [place] [address]Dr. Nahed Yañez EO # 0.0 103/ul Normal 0.0-0.7 [facility] Comment on above: Performed By: #### C BC ####[facility] Pmfjuvxple[address] [place], [place] [address]Dr. Nahed Yañez Eosinophils/100 WBC (Bld) 0.0 % Critically low 0.9-7.0 [facility] Comment on above: Performed By: #### C BC ####[facility] Pdtwnxydjg126[address] [place], [place] [address]Dr. Nahed Yañez Erythrocyte distribution width (RBC) [Ratio] 15.1 % Critically high 11.0-15.0 [facility] Comment on above: Performed By: #### C BC ####[facility] Krnjzkopmz3302 [place] [address]Dr. Nahed Yañez Hematocrit (Bld) [Volume fraction] 31.4 % Critically low 36.0-48.0 [facility] Comment on above: Performed By: #### C BC ####[facility] Ksvwgnojta6255 [place] [address]Dr. Nahed Yañez Hemoglobin (Bld) [Mass/Vol] 10.2 g/dL Critically low 12.0-16.0 [facility] Comment on above: Performed By: #### C BC ####[facility] Knzjhuulvy048[address] [place], [place] [address]Dr. Nahed Yañez IG # 0.08 10e3/ul Critically high 0.00-0.03 [facility] Comment on above: Performed By: #### C BC ####[facility] Blxlsshpjo37[address] [place], [place] [address]DrShaun Yañez IG % 0.6 % Critically high 0.0-0.5 [facility] Comment on above: Performed By: #### C BC ####[facility] Iwznlhfrmb[address] [place], [place] [address]DrShaun Nahed Otilio LYMPH # 0.9 103/ul Critically low 1.2-3.8 [facility] Comment on above: Performed By: #### C BC ####[facility] Vhruuzwkui2578 [place] [address]DrShaun Nahed Otilio Lymphocytes/100 WBC (Bld) 6.1 % Critically low 20.5-60.0 [facility] Comment on above: Performed By: #### C BC ####[facility] Pqyxbajtxi8940 [place] [address]DrShaun Rosemarieashley Yañez MANUAL DIFF REQ NO Normal [facility] Comment on above: Performed By: #### C BC ####[facility] Jchrgzippr[address] [place], [place] [address]DrShaun Rosemarieashley Yañez MCH (RBC) [Entitic mass] 28.3 pg Normal 26.7-34.0 [facility] Comment on above: Performed By: #### C BC ####[facility] Epizhfiabl2709 [place] [id number]. Nahed Otilio MCHC (RBC) [Mass/Vol] 32.5 g/dL Normal 29.9-35.2 [facility] Comment on above: Performed By: #### C BC ####[facility] Qobuotqtgr5204 [place] [id number]. Nahed Yañez MCV (RBC) [Entitic vol] 87.0 fL Normal 81.0-99.0 [facility] Comment on above: Performed By: #### C BC ####[facility] Bmwtumrmqe904[address] [place], [place] [address]Dr. Nahed Yañez MONO # 0.7 103/ul Normal 0.3-0.8 [facility] Comment on above: Performed By: #### C BC ####[facility] Zytdmshcxh098[address] [place], [place] [address]Dr. Nahed Yañez Monocytes/100 WBC (Bld) 5.1 % Normal 1.7-12.0 [facility] Comment on above: Performed By: #### C BC ####[facility] Kfkulfptcc[address] [place], [place] [address]Dr. Nahed Yañez NEUT # 12.2 103/ul Critically high 1.4-6.5 [facility] Comment on above: Performed By: #### C BC ####[facility] Fuznvbkfvb[address] [place], [place] [address]Dr. Nahed Yañez Neutrophils/100 WBC (Bld) 88.1 % Critically high 43.0-75.0 [facility] Comment on above: Performed By: #### C BC ####[facility] Expvalijvv97[address] [place], [place] [address]DrShaun Yañez Platelet mean volume (Bld) [Entitic vol] 10.2 fL Normal 9.5-13.5 [facility] Comment on above: Performed By: #### C BC ####[facility] Gesaznwyyi34[address] [place], [place] [address]Dr. Nahed Yañez PLT 271 103/ul Normal 150-450 [facility] Comment on above: Performed By: #### C BC ####[facility] Mvhfxwgxxg4087 [place] [id number]. Nahed Yañez RBC 3.61 106/ul Critically low 4.20-5.40 [facility] Comment on above: Performed By: #### C BC ####[facility] Asifmyerst5113 [place] [id number]. Nahed Otilio WBC 13.9 103/ul Critically high 4.0-11.0 [facility] Comment on above: Performed By: #### C BC ####[facility] Iqtugwsrte2458 [place] [id number]. Nahed Otilio CULTURE URINEon 08-22-2022 CULTURE URINE Culture Observations : LIGHT GROWTH OF MIXED GENITAL MIGUEL. NO POTENTIAL PATHOGENS SEEN. Normal [facility] Comment on above: Performed By: #### U RCX ####[facility] Tcfdntxciv5824 [place] [address]DrShaun Yañez POINT OF CARE GLUCOSEon 08-12 Glucose [Mass/Vol] 252 mg/dL Critically high 74-106 [facility] Comment on above: Performed By: #### P OCGLUC ####[facility] Rjljucbtbj2625 [place] [address]Dr. Nahed Yañez Glucose [Mass/Vol] 293 mg/dL Critically high 74-106 [facility] Comment on above: Performed By: #### P OCGLUC ####[facility] Owdmzhnuhb3365 [place] [address]Dr. Nahed Yañez Glucose [Mass/Vol] 292 mg/dL Critically high 74-106 [facility] Comment on above: Performed By: #### P OCGLUC ####[facility] Oxsvovemcu3201 [place] [address]Dr. Nahed Yañez PROF 14(COMP METB)on 023 Albumin [Mass/Vol] 2.1 g/dL Critically low 3.4-5.0 [facility] Comment on above: Performed By: #### C MP ####[facility] Wtwtilepsm050[address] [place], [place] [address]Dr. Nahed Otilio Albumin/Globulin [Mass ratio] 0.5 {ratio} Normal [facility] Comment on above: Performed By: #### C MP ####[facility] Pdardzdqoq2717 [place] [address]Dr. Nahed Otilio ALP [Catalytic activity/Vol] 92 U/L Normal 46-116 [facility] Comment on above: Performed By: #### C MP ####[facility] Tizqveertm5508 [place] [address]Dr. Nahed Otilio ALT [Catalytic activity/Vol] 19 U/L Normal 14-59 [facility] Comment on above: Performed By: #### C MP ####[facility] Trbporcdlo[address] [place], [place] [address]Dr. Nahed Yañez Anion gap [Moles/Vol] 15.9 mmol/L Normal [facility] Comment on above: Performed By: #### C MP ####[facility] Vqfuxjlsar074[address] [place], [place] [address]Dr. Rosemarieashley Otilio AST [Catalytic activity/Vol] 8 U/L Critically low 15-37 [facility] Comment on above: Performed By: #### C MP ####[facility] Rnzinrqnjc[address] [place], [place] [address]Dr. Nahed Yañez Bilirubin [Mass/Vol] 0.3 mg/dL Normal 0.2-1.0 [facility] Comment on above: Performed By: #### C MP ####[facility] Uwgllwdmpr670[address] [place], [place] [address]Dr. Nahed Yañez Calcium [Mass/Vol] 9.4 mg/dL Normal 8.5-10.1 [facility] Comment on above: Performed By: #### C MP ####[facility] Szuymoupct44[address] [place], [place] [address]Dr. Nahed Yañez Chloride [Moles/Vol] 101 mmol/L Normal 98-107 [facility] Comment on above: Performed By: #### C MP ####[facility] Oumljmjdru680[address] [place], [place] [address]Dr. Nahed Yañez CO2 [Moles/Vol] 22.5 mmol/L Normal 21.0-32.0 [facility] Comment on above: Performed By: #### C MP ####[facility] Jcbddiidds4822 [place] [address]Dr. Nahed Yañez Creatinine [Mass/Vol] 1.16 mg/dL Critically high 0.55-1.02 [facility] Comment on above: Performed By: #### C MP ####[facility] Ulkbrrthln3960 [place] [address]Dr. Nahed Yañez EGFR-AF KU[place]I 58 mL/min/1.73m2 Critically low >=60 [facility] Comment on above: Performed By: #### C MP ####[facility] Obzpoqwiqu[address] [place], [place] [address]Dr. Nahed Yañez EGFR-NON AF [place]I 47 mL/min/1.73m2 Critically low >=60 [facility] Comment on above: Performed By: #### C MP ####[facility] Phgojvumck10[address] [place], [place] [address]Dr. Nahed Yañez Globulin (S) [Mass/Vol] 4.2 g/dL Normal [facility] Comment on above: Performed By: #### C MP ####[facility] Jdbnlnjcwq204[address] [place], [place] [address]Dr. Nahed Yañez Glucose [Mass/Vol] 409 mg/dL Critically high 74-106 [facility] Comment on above: Performed By: #### C MP ####[facility] Pgdfdsslww79[address] [place], [place] [address]Dr. Nahed Yañez Potassium [Moles/Vol] 3.4 mmol/L Critically low 3.5-5.1 [facility] Comment on above: Performed By: #### C MP ####[facility] Gmrlhcboxd[address] [place], [place] [address]Dr. Nahed Yañez Protein [Mass/Vol] 6.3 g/dL Critically low 6.4-8.2 [facility] e [facility] Comment on above: Performed By: #### C MP ####[facility] Plnygoiyeh316[address] [place], [place] [address]DrShaun Yañez Sodium [Moles/Vol] 136 mmol/L Normal 136-145 [facility] Comment on above: Performed By: #### C MP ####[facility] Eoahzygjon68[address] [place], [place] [address]Dr. Nahed Yañez Urea nitrogen [Mass/Vol] 16.0 mg/dL Normal 7.0-18.0 [facility] Comment on above: Performed By: #### C MP ####[facility] Nukiwtdsss12[address] [place], [place] [address]Dr. Nahed Yañez Urea nitrogen/Creatinine [Mass ratio] 13.8 mg/mg Normal [facility] Comment on above: Performed By: #### C MP ####[facility] Ccxcyqyazj47[address] [place], [place] [address]Dr. Nahed Yañez THEOPHYLLINEon 08-22-2022 THEOPHYLLINE 13.4 ug/mL Normal 10.0-20.0 [facility] Comment on above: Performed By: #### T RAFITA ####[facility] Qlxnvqtmme285[address] [place], [place] [address]Dr. Nahed Yañez UA RANDOM W/MICROSCOPICon BACTERIA NONE SEEN Normal NONE SEEN [facility] Comment on above: Performed By: #### U AMIC ####[facility] Wntwpkzdyl64[address] [place], [place] [address]Dr. Nahed Yañez Bilirubin Ql (U) Negative Normal NEGATIVE [facility] Comment on above: Performed By: #### U AMIC ####[facility] Igxhpfxuzp57[address] [place], [place] [address]Dr. Nahed Yañez CAST NONE SEEN Normal NONE SEEN [facility] Comment on above: Performed By: #### U AMIC ####[facility] Qmhohmcrux[address] [place], [place] [address]Dr. Nahed Yañez Clarity (U) CLEAR Normal CLEAR [facility] Comment on above: Performed By: #### U AMIC ####[facility] Kayzmltqis12[address] [place], [place] [address]Dr. Nahed Yañez Color (U) LT. YELLOW Normal YELLOW [facility] Comment on above: Performed By: #### U AMIC ####[facility] Jzdlpjagof10[address] [place] [address]Dr. Nahed Yañez Crystals LM Nom (Urine sed) NONE SEEN Normal NONE SEEN [facility] Comment on above: Performed By: #### U AMIC ####[facility] Tlynhftduv2995 [place] [address]Dr. Nahed Yañez Epithelial cells LM Ql (Urine sed) RARE Normal NONE SEEN /RARE [facility] Comment on above: Performed By: #### U AMIC ####[facility] Ulfbrafdkd9907 [place] [address]Dr. Nahed Yañez Glucose Ql (U) 100 mg/dl Abnormal NEGATIVE [facility] Comment on above: Performed By: #### U AMIC ####[facility] Dymidtwino[address] [place], [place] [address]Dr. Nahed Yañez Hemoglobin Ql (U) Negative Normal NEGATIVE [facility] Comment on above: Performed By: #### U AMIC ####[facility] Zhwdgxmjkk[address] [place], [place] [address]Dr. Nahed Yañez Ketones Ql (U) Negative Normal NEGATIVE [facility] Comment on above: Performed By: #### U AMIC ####[facility] Dizpitohji[address] [place], [place] [address]Dr. Nahed Yañez LEUKOCYTES Negative Normal NEGATIVE [facility] Comment on above: Performed By: #### U AMIC ####[facility] Kvuybzdrod[address] [place], [place] [address]Dr. Nahed Yañez MUCOUS NONE SEEN Normal NONE SEEN [facility] Comment on above: Performed By: #### U AMIC ####[facility] Mjcsxwphns033[address] [place] [address]Dr. Nahed Yañez Nitrite Ql (U) Negative Normal NEGATIVE [facility] Comment on above: Performed By: #### U AMIC ####[facility] Cbdipgmgwn3798 [place] [address]Dr. Nahed Yañez pH (U) 5.5 [pH] Normal 5-9 [facility] Comment on above: Performed By: #### U AMIC ####[facility] Icrhjnqqsy7908 [place] [address]Dr. Nahed Yañez RBC NONE SEEN Abnormal 0-2 [facility] Comment on above: Performed By: #### U AMIC ####[facility] Rhsajbcryp1752 [place] [address]Dr. Nahed Yañez SPEC GRAVITY 1.020 Normal 1.005-<=1.02 5 [facility] Comment on above: Performed By: #### U AMIC ####[facility] Chbawffqkt0233 [place] [address]Dr. Nahed Yañez UA PROTEIN Negative Normal NEGATIVE/ TRACE [facility] Comment on above: Performed By: #### U AMIC ####[facility] Xqlgtbyapy5224 [place] [address]Dr. Nahed Yañez Urobilinogen Qn (U) 0.2 {Alem'U}/dL Normal 0.2 - 1. 0 [facility] Comment on above: Performed By: #### U AMIC ####[facility] Dftjqwkgkq[address] [place], [place] [address]Dr. Nahed Yañez WBC NONE SEEN Normal NONE SEEN [facility] Comment on above: Performed By: #### U AMIC ####[facility] Rocuxodayt[address] [place], [place] [address]Dr. Nahed Yañez BLOOD GASES BTYon 08-21-2022 02 MODE ROOM AIR Normal [facility] Comment on above: Performed By: #### A BG ####[facility] Fszuoxpicc8[address] [place], [place] [address]Dr. Nahed Yañez ALLENS TEST Positive Normal [facility] Comment on above: Performed By: #### A BG ####[facility] Tfejivqgdl89[address] [place], [place] [address]Dr. Nahed Yañez Base excess Calc (Bld) [Moles/Vol] 3.2 mmol/L Critically high -2.0-2.0 [facility] Comment on above: Performed By: #### A BG ####[facility] Ueusdiguvn[address]17[address] [place], [place] [address]Dr. Nahed Yañez BIPAP PRESSURE Normal [facility] Comment on above: Performed By: #### A BG ####[facility] Fvcpdajfpd3060 [place] [address]Dr. Nahed Yañez CPAP Normal [facility] Comment on above: Performed By: #### A BG ####[facility] Vfqlzxjqcr9757 [place] [address]Dr. Nahed Yañez FIO2 Normal [facility] Comment on above: Performed By: #### A BG ####[facility] Vrgbttafys9052 [place] [address]Dr. Nahed Yañez HCO3 (Bld) [Moles/Vol] 26.8 mmol/L Critically high 22.0-26 .0 [facility] Comment on above: Performed By: #### A BG ####[facility] Tboumxcuzr468[address] [place], [place] [address]Dr. Nahed Yañez LPM Normal [facility] Comment on above: Performed By: #### A BG ####[facility] Ljyxwpajjb9[address] [place], [place] [address]Dr. Nahed Yañez MINUTE VOLUME Normal [facility] Comment on above: Performed By: #### A BG ####[facility] Utdjkxrkbh823[address] [place], [place] [address]Dr. Nahed Yañez Oxygen (Bld) [Partial pressure] 55.1 mm[Hg] Critically low 80.0-100.0 [facility] Comment on above: Performed By: #### A BG ####[facility] Cviusdjvkd945[address] [place], [place] [address]Dr. Nahed Yañez Oxygen saturation in Blood 90.2 % Critically low 95.0-100.0 [facility] Comment on above: Performed By: #### A BG ####[facility] Xodlcimyin025[address] [place], [place] [address]Dr. Nahed Yañez PCO2 36.7 mmHg Normal 35.0-45.0 [facility] Comment on above: Performed By: #### A BG ####[facility] Pwjsjmbwai69[address] [place], [place] [address]Dr. Nahed Yañez PEEP Normal [facility] Comment on above: Performed By: #### A BG ####[facility] Pvtpksjxec4198 [place] [address]Dr. Nahed Yañez pH (Bld) 7.472 [pH] Critically high 7.350-7.450 [facility] Comment on above: Performed By: #### A BG ####[facility] Epzyslperc5784 [place] [address]Dr. Nahed Yañez PIP Normal [facility] Comment on above: Performed By: #### A BG ####[facility] Zijbizevdg8385 [place] [address]Dr. Nahed Yañez PS [facility] Comment on above: Performed By: #### A BG ####[facility] Sbjafjtbsg[address] [place], [place] [address]Dr. Nahed Yañez PUNCTURE SITE LR Normal [facility] Comment on above: Performed By: #### A BG ####[facility] Ntkxtcnlni279[address] [place], [place] [address]Dr. Nahed Yañez RATE [facility] Comment on above: Performed By: #### A BG ####[facility] Rnjoxzzeue14[address] [place], [place] [address]Dr. Nahed Yañez VENT MODE [facility] Comment on above: Performed By: #### A BG ####[facility] Yeksgxeowm9[address] [place], [place] [address]Dr. Nahed Yañez VT [facility] Comment on above: Performed By: #### A BG ####[facility] Csxlstyizw[address] [place], [place] [address]Dr. Nahed Yañez BNPon 08-21-2022 Natriuretic peptide B (Bld) [Mass/Vol] 131.0 pg/mL Normal <=900.0 [facility] Comment on above: Performed By: #### B REJOGGER ####[facility] Hlzsxeqhnp[address] [place], [place] [address]Dr. Nahed Yañez CARDIAC FRANCISCO 3-6on 3 CK [Catalytic activity/Vol] 17 U/L Critically low 26-192 [facility] Comment on above: Performed By: #### C MREP ####[facility] Hbefcztnol7828 [place] [id number]. Nahed Yañez CK.MB [Mass/Vol] ng/mL Normal <=3.60 [facility] Comment on above: Performed By: #### C MREP ####[facility] Woydvleakz3427 [place] [id number]. Nahed Yañez HSTROP 25.1 pg/mL Normal 4.0-51.3 [facility] Comment on above: Result Comment: CUT- OFF POINTS HAVE BEEN ESTABLISHED BASED ON THE FOURTH UNIVERSAL DEFINITIONS OF MYOCARDIALINFARCTION. THE UPPER REFERENCE LIMIT (URL) OF TROPONIN, DEFINED THE 99TH PERCENTILE OFcTnI DISTRIBUTION IN A REFERENCE POPULATION, HAS BEEN CONFIRMED THE DECISION THRESHOLDFOR AL DIAGNOSIS. Performed By: #### C MREP ####[facility] Kevvvefnmp5660 [place] [id number]. Nahed Yañez CARDIAC FRANCISCO ADMITon 023 CK [Catalytic activity/Vol] 39 U/L Normal 26-192 [facility] Comment on above: Performed By: #### B RENZO, CMADM ####[facility] Xrktgbzxvm6437 [place] [id number]. Nahed Yañez CK.MB [Mass/Vol] ng/mL Normal <=3.60 [facility] Comment on above: Performed By: #### B RENZO, CMADM ####[facility] Njmbeiwssg7750 [place] [phone]. Nahed Yañez HSTROP 24.4 pg/mL Normal 4.0-51.3 [facility] Comment on above: Result Comment: CUT- OFF POINTS HAVE BEEN ESTABLISHED BASED ON THE FOURTH UNIVERSAL DEFINITIONS OF MYOCARDIALINFARCTION. THE UPPER REFERENCE LIMIT (URL) OF TROPONIN, DEFINED THE 99TH PERCENTILE OFcTnI DISTRIBUTION IN A REFERENCE POPULATION, HAS BEEN CONFIRMED THE DECISION THRESHOLDFOR AL DIAGNOSIS. Performed By: #### B RENZO, CMADM ####[facility] Trmtaywcrv4409 [place] [phone]. Nahed Yañez ANDRE 48 ng/mL Normal 9-82 [facility] Comment on above: Performed By: #### B RENZO, CMADM ####[facility] Icvbdfbvii2630 [place] [address]Dr. Nahed Otilio CBC AUTO DIFFon 08-21-2022 BASO # 0.0 103/ul Normal 0.0-0.1 [facility] Comment on above: Performed By: #### C BC ####[facility] Dixrcvfmhh[address] [place], [place] [address]Dr. Nahed Yañez Basophils/100 WBC (Bld) 0.2 % Normal 0.2-2.0 [facility] Comment on above: Performed By: #### C BC ####[facility] Yrddkpecha[address] [place], [place] [address]Dr. Nahed Yañez EO # 0.3 103/ul Normal 0.0-0.7 [facility] Comment on above: Performed By: #### C BC ####[facility] Qwdnhhnrxv3[address] [place], [place] [address]Dr. Nahed Yañez Eosinophils/100 WBC (Bld) 1.5 % Normal 0.9-7.0 [facility] Comment on above: Performed By: #### C BC ####[facility] Erppwvlaru86[address] [place], [place] [address]Dr. Nahed Yañez Erythrocyte distribution width (RBC) [Ratio] 15.0 % Normal 11.0-15.0 [facility] Comment on above: Performed By: #### C BC ####[facility] Gobsmnuerf[address] [place], [place] [address]Dr. Nahed Yañez Hematocrit (Bld) [Volume fraction] 41.4 % Normal 36.0-48.0 [facility] Comment on above: Performed By: #### C BC ####[facility] Fasjdvacmq[address] [place], [place] [address]Dr. Nahed Yañez Hemoglobin (Bld) [Mass/Vol] 13.5 g/dL Normal 12.0-16.0 [facility] Comment on above: Performed By: #### C BC ####[facility] Kzaxlkavop[address] [place], [place] [address]Dr. Nahed Yañez IG # 0.18 10e3/ul Critically high 0.00-0.03 [facility] Comment on above: Performed By: #### C BC ####[facility] Rfjsvulquw9132 [place] [phone]. Rosemarieashley Yañez IG % 1.0 % Critically high 0.0-0.5 [facility] Comment on above: Performed By: #### C BC ####[facility] Hcwynbkgrs0321 [place] [phone]. Nahed Yañez LYMPH # 2.5 103/ul Normal 1.2-3.8 [facility] Comment on above: Performed By: #### C BC ####[facility] Oxkkmpupvv6315 [place] [phone]. Nahed Yañez Lymphocytes/100 WBC (Bld) 14.0 % Critically low 20.5-60.0 [facility] Comment on above: Performed By: #### C BC ####[facility] Vlbtucrfxu4116 [place] [address]Dr. Nahed Yañez MANUAL DIFF REQ NO Normal [facility] Comment on above: Performed By: #### C BC ####[facility] Waurrqqxdk5315 [place] [phone]. Nahed Otilio MCH (RBC) [Entitic mass] 28.5 pg Normal 26.7-34.0 [facility] Comment on above: Performed By: #### C BC ####[facility] Pfejeknaol0261 [place] [phone]. Nahed Yañez MCHC (RBC) [Mass/Vol] 32.6 g/dL Normal 29.9-35.2 [facility] Comment on above: Performed By: #### C BC ####[facility] Eetvvmnuln4426 [place] [phone]. Nahed Yañez MCV (RBC) [Entitic vol] 87.3 fL Normal 81.0-99.0 [facility] Comment on above: Performed By: #### C BC ####[facility] Bhhybkzeha8136 [place] [phone]. Nahed Yañez MONO # 1.2 103/ul Critically high 0.3-0.8 [facility] Comment on above: Performed By: #### C BC ####[facility] Uyhujzxrag4371 [place] [phone]. Nahed Yañez Monocytes/100 WBC (Bld) 6.8 % Normal 1.7-12.0 [facility] Comment on above: Performed By: #### C BC ####[facility] Mpjtsmrplt5803 [place] [phone]. Nahed Yañez NEUT # 13.8 103/ul Critically high 1.4-6.5 [facility] Comment on above: Performed By: #### C BC ####[facility] Krukoswyyr4173 [place] [phone]. Nahed Yañez Neutrophils/100 WBC (Bld) 76.5 % Critically high 43.0-75.0 [facility] Comment on above: Performed By: #### C BC ####[facility] Zvxnhjnvew2878 [place] [address]Dr. Nahed Yañez Platelet mean volume (Bld) [Entitic vol] 10.5 fL Normal 9.5-13.5 [facility] Comment on above: Performed By: #### C BC ####[facility] Tcpskosgrs[address] [place], [place] [address]Dr. Nahed Yañez PLT 319 103/ul Normal 150-450 [facility] Comment on above: Performed By: #### C BC ####[facility] Zhxafxltsp5255 [place] [phone]. Nahed Yañez RBC 4.74 106/ul Normal 4.20-5.40 [facility] Comment on above: Performed By: #### C BC ####[facility] Oplvyughuj1461 [place] [phone]. Nahed Yañez WBC 18.0 103/ul Critically high 4.0-11.0 [facility] Comment on above: Performed By: #### C BC ####[facility] Tpmmwlqyio[address] [place], [place] [address]Dr. Nahed Yañez CULTURE BLOODon 08-21-2022 Microscopic examination of blood, culture Culture Observations: NO GROWTH AT 5 DAYS. Normal [facility] Comment on above: Performed By: #### B LDCX2 ####[facility] Nsxcfatwdc5319 [place] [address]Dr. Nahed Yañez Microscopic examination of blood, culture Culture Observations: NO GROWTH AT 5 DAYS. Normal [facility] Comment on above: Performed By: #### B LDCX1 ####[facility] Abmjggootn1867 [place] [address]Dr. Nahed Yañez Covid-19 PCR (CVDTB)on 08-12 SARS-CoV-2 (COVID-19) RNA MIRNA+probe Ql (Unsp spec) Not detected Normal NOT DETECTED [facility] Comment on above: Result Comment: When diagnostic [...] for this test is supported by the Radio Performer of Health and Human Service's declaration that [...] be used). Performed By: #### C VDTBH ####[facility] Xgceniefqp7161 [place] [address]Dr. Nahed Yañez LACTATE/LACTIC ACIDon 2022 Lactate [Moles/Vol] 1.1 mmol/L Normal 0.4-2.0 [facility] Comment on above: Performed By: #### L ACT ####[facility] Zuluvsqooh2046 [place] [phone]. Nahed Yañez Lactate [Moles/Vol] 2.4 mmol/L Critically high 0.4-2.0 [facility] Comment on above: Performed By: #### L ACT ####[facility] Tazohxmcoj[address] [place] [address]Dr. Nahed Yañez POINT OF CARE GLUCOSEon 08-12 Glucose [Mass/Vol] 453 mg/dL Critically high 74-106 [facility] Comment on above: Performed By: #### P OCGLUC ####[facility] Vgcvdzldzc3293 [place] [address]Dr. Rosemarieashley Yañez Glucose [Mass/Vol] 358 mg/dL Critically high 74-106 [facility] Comment on above: Performed By: #### P OCGLUC ####[facility] Pdqkcbzoqs9249 [place] [address]Dr. Nahed Yañez Glucose [Mass/Vol] 98 mg/dL Normal 74-106 [facility] Comment on above: Performed By: #### P OCGLUC ####[facility] Ufijvyoqib7242 [place] [address]Dr. Nahed Yañez PROF CHEM 8 (BAS METB)on Anion gap [Moles/Vol] 14.7 mmol/L Normal [facility] Comment on above: Performed By: #### B MP, CMADM ####[facility] Sjidtxcmyt[address] [place], [place] [address]Dr. Nahed Yañez Calcium [Mass/Vol] 9.6 mg/dL Normal 8.5-10.1 [facility] Comment on above: Performed By: #### B MP, CMADM ####[facility] Frykmfwxox2591 [place] [address]Dr. Nahed Yañez Chloride [Moles/Vol] 95 mmol/L Critically low 98-107 [facility] Comment on above: Performed By: #### B MP, CMADM ####[facility] Dagkjgiecf[address] [place], [place] [address]Dr. Nahed Yañez CO2 [Moles/Vol] 25.2 mmol/L Normal 21.0-32.0 [facility] Comment on above: Performed By: #### B MP, CMADM ####[facility] Fbzqhiamec9623 [place] [address]Dr. Nahed Yañez Creatinine [Mass/Vol] 1.15 mg/dL Critically high 0.55-1.02 [facility] Comment on above: Performed By: #### ERICK Ordonez MP ####[facility] Vhugiwesok8853 [place] [address]Dr. Nahed Yañez EGFR-AF KU[place]I 58 mL/min/1.73m2 Critically low >=60 [facility] Comment on above: Performed By: #### ERICK Ordonez MP ####[facility] Lshqwfdavw0161 [place] [address]Dr. Nahed Yañez EGFR-NON AF [place]I 48 mL/min/1.73m2 Critically low >=60 [facility] Comment on above: Performed By: #### ERICK Ordonez MP ####[facility] Hvbaymdtkb2098 [place] [address]Dr. Nahed Yañez Glucose [Mass/Vol] 191 mg/dL Critically high 74-106 [facility] Comment on above: Performed By: #### ERICK Ordonez MP ####[facility] Ycuvoqfrur2254 [place] [address]Dr. Nahed Yañez Potassium [Moles/Vol] 3.9 mmol/L Normal 3.5-5.1 [facility] Comment on above: Performed By: #### ERICK Ordonez MP ####[facility] Hfeuacfhdm0689 [place] [address]Dr. Nahed Yañez Sodium [Moles/Vol] 131 mmol/L Critically low 136-145 [facility] Comment on above: Performed By: #### ERICK Ordonez MP ####[facility] Pjwimbshsy4480 [place] [address]Dr. Nahed Yañez Urea nitrogen [Mass/Vol] 15.0 mg/dL Normal 7.0-18.0 [facility] Comment on above: Performed By: #### ERICK Ordonez MP ####[facility] Serefnsskm4684 [place] [address]Dr. Nahed Yañez Urea nitrogen/Creatinine [Mass ratio] 13.0 mg/mg Normal [facility] Comment on above: Performed By: #### ERICK Ordonez MP ####[facility] Uhdbadprxc0269 [place], [place] [address]WuShaun Yañez XR CHEST 2 Von 08-21-2022 XR CHEST 2 V Normal [facility] Coding Summary.on 08-11-2022 Coding Summary. CD:[id number] W w+PGhlYWQ+WM9VYHClB60 klQAheJ5jC6ZPUJuFZwpo SBDWGRxFBoDlcgXiRL0tn XNjZXJu IC8+KT6kNVHeEwdzuKPdr 9F4oQF0X93ojt3ySSppqD T2MIErWzWaglipm7sdrEg 6IDcuNmluOyBt QPQulK99JHI3mG51Sm87q EAumCXdh2mmdFa0ZbQaAE OhZHF8xGmaIPcvu3VcUCH rJ47fhFRaq9Z4 XSAjkFhxrKOcLtCbnCK2d B8rJIjyebamx0fvtbwqNy k6ka34sYUfy1G7wAC4Y3P obfB4LREurAVl PzokhPHDyW2ewektv8fru jksSpFnRLZrNMd8UYk0TP GzfHefKlBfCT74ODC9VQP ljbLxX8QuABHm cDvuQoJ7n7E8En4WG1PMF vemE1FTUVZQDEhibIN+PC 48df78I3PfGkukPbt4HYX pZVE9vLH0rJ8n CNXzISinp4M8wUT5K5Ocp nZhbt4vi3vpQUXfNVthD9 3zbGBfb3O1VRWnkIS7TKK upCmvBfUjjS61 Oyc+SMOdbCick5CfRoplp 8jtz8iomLa3PiozEIUufm RxiQrwCFV6f7DzKv3wIXE mvUG7iSG7zN4g XsEgPoD4JKxjZ526MaWzv ETuZphmN87wA4IljGK+PH YbFur4MECgcZdoOB1oM6H hZGRpbmctbGVm kHpmHX4yXUXfcdsrDDVix V2uBNOdP3i1QkTeBwP3EO glW8JlFHYalbzbPb96tJ3 pWqIlAxC2FSqb I9OgscO9MFLkmDKaLSnvS GX8I05oq7D2HOXrMPQgYX N5kAY0xA7pwSfmikjobOU mdDsgdmVydGlj OVqrXZcwH058IBBgzXqlW kNvZGluZyBEYXRlOiAgMD MvMzEvMjAyMzwvdGQ+PHR tFTD6jEgnZEVm yYIeQVwaPk6kqStjmUzhU R9rVAFqrzbhKRIesE1lLM NjyHSftRbbPJ3iAPFcbzo oh384TwBxEWR8 RMIfmLJxI7RidT5pAjNpM FPcPLOnA1AdgMYkRXnqJ9 45JWmyDkA6MMNvmkMyE7N sLWFsaWduOiB0 n9A0Xb8Hz7IhrmotK7Irz XTkHuGdUeklEEq3H7LrTg wvdHI+KS35KMHeUI17PGn 5WJF1gDouUJyt ZTFtB5NywC8iDxNkVWOnB GRkOyc+PHRhYmxlIHdpZH RoPScxMDAlJyBzdHlsZT0 fGi7aIBAvWXYf yJdznHEwJyDyj5zuHMDaC FpqBV0sjTvsV8ThyWW7QP Lay1o0Wg02B42aX8EaqSG +VLNavWN2hZO4 aR7zHlSjQfF0XRbqJ802Y tGkvJNbIatjh9bpw3dznL n5CbZ0ZMApdnOdcSidBYF 5v2JkSf17Z15p IHdpZHRoPSIxNSUiIHZhb Dhych7nlY4yQu2+PGNvbC U5qMW9dX2rPhVlCbA9WUd qX962HhFgzHAw Etzlq9jcx3qzmOo1HfSdA TJjwmNvbXiqMRH1d6ZbFq 47Y3MotWkwl0MhFlr1rc9 2dOPuu0G4oXG1 U7BaWSSrrwnvrXOrrJnvC L3nYXDnylezWXNrkO4gTX PgD3j5NnMrZeB4JSuaD1V nuuA5WUFejFRd UVGjyRXQjD3krzhnq0rsx goaSpQnRXEyYQh2ZTs8OS JjlOfkGbRsGUV6TaE5VFX 8yAKgdF8xaJlv nczbfF7yXfb+RPP2qOCgc CNXMF3vUnnruLS+PHRkIH P3dDfhQQgbTCGabY2pKZL vN1c0IlNdXfT3 GHgxH9MrxqJ0VMJmgDSuM PVnaMAReW7ocnlor5utgz hbGaRmQEWvQXu3OGn0CZS saWduOiBsZWZ0 KcK3PUR0rBHnnM1giFdwd svvdP3kHuo+QmlydGggRG I2XYx5M1MkZjn7OHVapTw jLN6yuEIsLBfi Ol0qdJozdCdiMU3eSXCsr zczs594YlVoc9knKQYhkH NuAJfiCJW5M92uz3P8RKB lHNUpIDW7vTB8 eR8mmVswsikiwKAivOuem qFdaRqkJKaiMTbgX098ZH AgkTuyVtOcBEk8I0SeMod 6JQWkqForCV0g vXKrYQtsMn7avHkkqOyyJ Z1rMOHgyxscg100HpBbg3 yxBCMgaYVaZQckAFJ9W68 gi7C4EGYoCDBx WAT5mVJ4nV6skVjxjrzlg GVmdDsgdmVydGljYWwtYW nfG838SGEyfJrcKhVhcLt 6U0XdFhm6ROVx hHtqIL9zvUQxFUljLn0wo NyqjBckJL4xZYPmfskyk3 43KkJmn6suLJQfmIPrDEp qXBE4Q12aa7Q6 EHHyVOSlCUY9vTL4bW5xt GlnbjogbGVmdDsgdmVydG qdPZhuBXwbO169DOFghRb nPlBhdGllbnQg YDlrBGa2X0FdQddjiMP+P V60ISKmAQ29nITjyRHvs8 xvpNm2BvUxHCIiTUX8tVl rPZfzx6MwZYGa B34jeJJwp3B2HMTydRhwd UAmHrOyvYD7kJ8lXUwxck wpp2wkaogfFxoid6jxwq8 6cF21E65eCPgw ZHRoPSIzMCUiIHZhbGlnb j0deS7zPw1+CEMpdRX8kS E6xZ2rBTMzCpP4HPkzB19 9InRvcCIvPjxj l8ith6gywBu3QlM3OIRcj zTcgXusSHJ5l9QpDt81M8 9sIHdpZHRoPSIyMCUiIHZ lcWhmai8geX2j Ii8+QDWkrPT5tWH6dD4hW zSlJiO8TKswK158PoDwyM EqIdgfL00aL8KutOF+PHR wNog1RFAjhDeo NY8yuLTrCGvdUz9cZIR1D mFhKwGqMAqhI2GuWYWhel lymtbuaNU3AMXfROFolG1 2Xv5hhMixQIEc wLOAhD9dkmroc7jepnwbT iQtZYRjSJn8MPx9IGPggG jxGhRwAUX1FvG0PMN1lPB usX9ezSaqujas tZ2xG1DrIOLfbmiyDz83n S1kFyItVrH0WKhsUfe+TU UYRJ0WJPXGEHAEUIU4H2Y jNmp5FBNbeGcq MF2oyXEzSMqyFw8akXvsv LqkUS4vBUJtszvxHGMovG 3aOPIojZPdrHnvPV8wAOE gofjhm739UkTq LJX3EUYxwALqC2HiaW6xB yBtWJHdZPMsO6RwpTFyWN moA761BDloRnD7VAOsqwX hX2XgSLGgpVmf YjN7k9J8Lz8gIF6kTH1wR FAbJF06JA96aYPml5M3eY R7R5SmGQSfklxakedqiRJ 4PUCyRZOedU26 sCYjBLacQj1zr1J9x547G MEtKQJwmZ43Kx2wdWjbQC KsaQLBqK7qolols2gksjh gIzAwMDAwMDt0 QYt8ELOodZuiJyKfKPE2C jC6RRW3vIJkhY0exCphch gbqA5vEua+NjEgWWVhcnM 4C1RqJkx7JTTv sDmtPP6ukIUeIMxmAe2ck RzbyNhzCU2cYLWkqesgSS YasW8eAUXetKUmrWqgYG9 yEDHfgonlj944 CoHqUMA1DRTjtSYiI1Nda H1mUnFdCNEbIRLmF5WhyO NcYJruM486FNotJzG7CHL eeuYeS6PpUMVq zMuwLdR3h6N9Nb7BLP4vs CK3X4RmLqv9EPZfaUmvBZ 2rdKSgVLyrXy1xnTcmyNb zNV1oAVMssyrz PLJhxA9pCPBvwJFcwTopU G6fFTHhhgdvi376BfVeKA O5OPFraPGlS9XqaF9bPyT zTTCcVLIsE6Nn oYTkIXmmR913QNbrAyY3R UWgfvNqD2AlPNAifSkwIo I6y7T5Me8LrXSbL8JjI5s 8N1MyTjnluJS+ SA50NIFqRW33iCIayDPbg 5xdfZl4LtQgWLKrUYA2nX xiKSokb8AnNMSoB62mpEK jy3C5RWDnjCya xKYbMdQyrPH6bH0lJCikb ywos5hijkguMeguw9ueot 07lP02B70vVItgUFCtOFM zMCUiIHZhbGln qo3wiT0wGb8+GXDaoQH6p FB9hK3gIlBdEaZ1WMhwE7 29OiVibLHkWkhti1zmf7u hfBz8WlXjFTSq mqZkeNeyCLK1y7LfVq87E 29sIHdpZHRoPSIyMCUiIH AioChrhp3drC3tMp2+PC9 nb9xdhp86xQ08 dHI+XLUgNIO4mFfyOIlfO TVstN6fMQwiIlW4YQPrTz BljL45mANoGXuuQx1gzGj keHzbXY1kFYWn htwle520UqPya5ucMACif NAdRLoxUXX1X61dc0L5CJ DsVVChNNN9bXU4wG3dcAu nbjogbGVmdDsg kfTyqEcbCIofLWsdP518C HZyxVbuMbDtlWMmW7fiyy AJZG5eYffrmQK+PHRkIHN 0eWxlPSdwYWRk wM9pCSPhL6d1AiQwPtU2F DyeP8DhtrD3AAVupZVmLA KhhVCSvY0alwyqw5evrjf gIzAwMDAwMDt0 YHy9XXGpaRqyEhMiLXB6N wO2VBH1xUBkdU4tdOqmad hcwC8jQba+RklOOjwvdGQ +JRSaOBM9aJeg QAngJXLnpT0oXAPiO6t9R oSeLkW7AQhfB2YwhwN6CF GhwDFvWNGcwFLJuW1dwyq ip4icqtjzEjLm QTOgIDl8CHe5VNTbcFlfN kXnUQB2NlR3IGC7sDLzbA 3zdLpmwoihmG2yLsm+TVJ OOjwvdGQ+PHRk UOC2rZziXBouRDZmzC2gH JKhX8x8CuNfIaB8YMkgL7 SxttM2FTEsfXKvHMBdjRR TbZ6iuxiwd6no oakpScJrQOOgYAr1EHc2N PDelGdxQwIfOCK9EyJ1GL U3vSJchQ2plRoxqyjqwJ8 wOyc+RFE0ICG9 HH15KN08T4PwCbffiMUlj +PHRhYmxlIHdpZHRoPS feAXKyWhLfgZlrPS9rJi7 yZGVyLWNvbGxh cHNlOiBj (more content not included)... Normal [facility] Auto Diffon 08-09-2022 Basophils/100 WBC (Bld) 0.5 % Normal 0.0-2.0 [facility] Comment on above: Order Comment: Order Added by Discern Expert. Performed By: #### 2 [id number], [id number] ####[facility] [id number] [place], [place] [address] Basophils/Leukocytes Auto (Bld) [Pure # fraction] 0.1 E9/L Normal 0.0-0.2 [facility] Comment on above: Order Comment: Order Added by Discern Expert. Performed By: #### 2 [id number], [id number] ####[facility] [id number] [place] [address] Eosinophils/100 WBC (Bld) 2.7 % Normal 0.0-8.0 [facility] Comment on above: Order Comment: Order Added by Discern Expert. Performed By: #### 2 [id number], [id number], [id number], [id number] ####[facility] [id number] [place] [address] Eosinophils/Leukocytes Auto (Bld) [Pure # fraction] 0.4 E9/L Normal 0.0-0.5 [facility] Comment on above: Order Comment: Order Added by Discern Expert. Performed By: #### 2 [id number], [id number], [id number], [id number], [id number] ####[facility] [address] [place] [address] Lymphocytes/100 WBC (Bld) 12.8 % Low 14.0-50.0 [facility] Comment on above: Order Comment: Order Added by Discern Expert. Performed By: #### 2 829375, 0905991, 25897457, 7727163, 94344375, 85274238, 35544214 ####[facility] [address] [place] [address] Lymphocytes/Leukocytes Auto (Bld) [Pure # fraction] 2.1 E9/L Normal 1.0-4.0 [facility] Comment on above: Order Comment: Order Added by Refugio Expert. Performed By: #### 2 107994, 7124483, 46508568, 2765167, 06408869, 77288245, 46215503 ####[facility] [address] [place] [address] Monocytes/100 WBC (Bld) 6.4 % Normal 4.0-14.0 [facility] Comment on above: Order Comment: Order Added by Refugio Expert. Performed By: #### 2 354085, 8469616, 42211000, 8309223, 89112752, 52341713, 67250008 ####[facility] [address] [place] [address] Monocytes/Leukocytes Auto (Bld) [Pure # fraction] 1.0 E9/L Normal 0.2-1.0 [facility] Comment on above: Order Comment: Order Added by Refugio Expert. Performed By: #### 2 557310, 3340012, 71447751, 9007027, 55704711, 04511686, 73617334 ####[place] [address] [place] [address] Neutrophils/100 WBC (Bld) 77.6 % High 36.0-75.0 [facility] Comment on above: Order Comment: Order Added by Discern Expert. Performed By: #### 2 864631, 4474868, 11161802, 1162281, 37769534, 60683098, 50339485 ####[facility] [address] [place] [address] Neutrophils/Leukocytes Auto (Bld) [Pure # fraction] 12.6 E9/L High 2.0-7.5 [facility] Comment on above: Order Comment: Order Added by Discern Expert. Performed By: #### 2 205015, 2556903, 39567111, 9874555, 30921980, 88048108, 47618660 ####[facility] [address] [place] [address] BMPon 08-09-2022 Creatinine [Mass/Vol] 1.1 mg/dL Normal 0.5-1.3 [facility] Comment on above: Performed By: #### 2 352021, 7010661, 38200963, 2567766, 46578244, 47978210, 36897441 ####[facility] [address] [place] [address] Urea nitrogen [Mass/Vol] 18 mg/dL Normal 5-21 [facility] Comment on above: Performed By: #### 2 622826, 1737130, 77975190, 8622335, 86899459, 63255552, 15513900 ####[facility] [address] [place] [address] Urea nitrogen/Creatinine [Mass ratio] 16 No Units Normal 10-20 [facility] Comment on above: Performed By: #### 2 557876, 3275811, 35158693, 8298976, 49282951, 93655148, 16592482 ####[facility] [address] [place] [address] Anion gap [Moles/Vol] 13 mmol/L Normal 6-16 [facility] Comment on above: Performed By: #### 2 766822, 1102281, 68914768, 3620100, 09171094, 60194973, 72633334 ####[facility] [address] [place] [address] Calcium [Mass/Vol] 8.8 mg/dL Low 8.9-11.1 [facility] Comment on above: Performed By: #### 2 802817, 5826428, 31254075, 2793818, 06715087, 85730070, 39628993 ####[facility] [address] [place] [address] Chloride [Moles/Vol] 101 mmol/L Normal 101-[address] [facility] Comment on above: Performed By: #### 2 177550, 1435669, 11020102, 6631725, 38818355, 85527883, 60828956 ####[facility] [address] [place] [address] CO2 [Moles/Vol] 27 mmol/L Normal 21-31 [facility] Comment on above: Performed By: #### 2 564548, 8797474, 57991453, 4147366, 40160045, 23252290, 85303093 ####[facility] [address] [place] [address] Glucose [Mass/Vol] 121 mg/dL Normal 55-199 [facility] Comment on above: Result Comment: If t his glucose result represents a fasting glucose, interpretation should refer to the following reference range: 55-99 mg/dL Performed By: #### 2 574790, 9345547, 89195019, 3749886, 62081057, 07717741, 45166565 ####[facility] [address] [place] [address] Potassium [Moles/Vol] 3.9 mmol/L Normal 3.5-5.3 [facility] Comment on above: Performed By: #### 2 464584, 0017356, 65831104, 9844896, 68480678, 96821963, 92166034 ####[facility] [address] [place] [address] Sodium [Moles/Vol] 137 mmol/L Normal 135-145 [facility] Comment on above: Performed By: #### 2 556399, 8270532, 12028905, 6816757, 30287947, 42488244, 20277515 ####[facility] [address] [place] [address] BNPon 08-09-2022 Int Ctr BNP Pass Normal [facility] Comment on above: Performed By: #### 2 597823, 0359361, 50775580, 8697875, 53840536, 70201606, 86002739 ####[facility] [address] [place] [address] Natriuretic peptide B (Bld) [Mass/Vol] 19 pg/mL Normal 5-80 [facility] Comment on above: Performed By: #### 2 435902, 2515124, 61389120, 1075513, 03202451, 00695342, 09049849 ####[facility] [address] [place] [address] Blood Gas Art, with Lytes, G alex, [place] 08-09-2022 a/A Ratio Art 75.90 % Normal >=0.80 [facility] Comment on above: Performed By: #### 4 16580534 ####[facility] [address] [place] [address] AaDO2 Art 21.9 mmHg High 5.0-15.0 [facility] Comment on above: Performed By: #### 4 98925462 ####[facility] [address] [place] [address] Allens Test Not Applicable Normal [facility] Comment on above: Performed By: #### 4 79712206 ####[facility] [address] [place] [address] Base Excess Arterial 3.1 mmol/L Normal >=2.[address] [facility] Comment on above: Performed By: #### 4 53904091 ####[facility] [address] [facility] [place] [address] cCa2+ Art 4.86 mg/dL Normal 4.40-5.30 [facility] Comment on above: Performed By: #### 4 16348233 ####[facility] [address] [facility] [place] cCl- Art 105.0 mmol/L Normal 101.0-111.0 [facility] Comment on above: Performed By: #### 4 57751488 ####[facility] [address] [place] [address] cGlu Art 117 mg/dL High 55-99 [facility] Comment on above: Performed By: #### 4 86436075 ####[address] [address] [facility] [place] [address] cK+ Art 4.0 mmol/L Normal 3.5-5.3 [facility] Comment on above: Performed By: #### 4 09709457 ####[address] [facility] [place] [address] cLac Art 1.4 mmol/L Normal .5-2.2 [facility] Comment on above: Performed By: #### 4 68661122 ####[facility] [address] [facility] [place] [address] enterprise resource planning consultant+ Art 142.0 mmol/L Normal 135.0-145.0 [facility] Comment on above: Performed By: #### 4 90263970 ####[facility] [address] [facility] [place] [facility] [place] [address] Drawn by RLG Invalid Interpretation Code [facility] Comment on above: Performed By: #### 4 17025492 ####[address] [facility] [place] [address] FCOHb Art 1.0 % Low 1.5-4.9 [facility] Comment on above: Result Comment: Refe rence range Nonsmoker <1.5% Smoker <5.0% Heavy Smoker <9.0% Performed By: #### 4 31832327 ####[facility] [address] [place] [address] FIO2 BG 21 Invalid Interpretation Code [facility] Comment on above: Performed By: #### 4 50443891 ####[address] [place] [address] FMetHb Art 0.5 % Normal 0.0-1.9 [facility] Comment on above: Performed By: #### 4 33420572 ####[address] [place] [address] FO2Hb Art 92.6 % Normal 92.0-100.0 [facility] Comment on above: Performed By: #### 4 92945952 ####[address] [address] HCO3 (Bld) [Moles/Vol] 27.1 mmol/L High 22.0-26.0 [facility] Comment on above: Performed By: #### 4 38141182 ####[address] [address] Hemoglobin (Bld) [Mass/Vol] 12.5 g/dL Normal 12.0-16.0 [facility] Comment on above: Performed By: #### 4 98372684 ####[address] [address] Oxygen saturation in Blood 94.1 % Low 95.0-100.0 [facility] Comment on above: Performed By: #### 4 43998623 ####[address] [place] [address] P CO2 Arterial 48.9 mmHg High 35.0-45.0 [facility] Comment on above: Performed By: #### 4 55298826 ####[address] [facility] [place] [address] P O2 Arterial 68.8 mmHg Low 80.0-100.0 [facility] Comment on above: Performed By: #### 4 56795069 ####[address] [place] [address] pH Arterial 7.383 Normal 7.350-7.450 [facility] Comment on above: Performed By: #### 4 06791207 ####[place] [address] Sample Site R Brachial Normal [facility] Comment on above: Performed By: #### 4 41757992 ####[place] [address] Sample Type Arterial Draw Normal [facility] Comment on above: Performed By: #### 4 54270687 ####[place] [address] CBC w/ Auto Diffon 3 Erythrocyte distribution width (RBC) [Ratio] 15.4 % High 10.9-14.2 [facility] Comment on above: Performed By: #### 2 174486, 5918386, 20461038, 8819845, 51193756, 46307794, 54272510 ####[facility] [address] [place], [place] [address] Hematocrit (Bld) [Volume fraction] 36.9 % Normal 34.0-46.0 [facility] Comment on above: Performed By: #### 2 810789, 0550207, 43940025, 0281864, 33027733, 83365356, 86147985 ####[address] [address] Hemoglobin (Bld) [Mass/Vol] 11.8 g/dL Low 12.0-16.0 [facility] Comment on above: Performed By: #### 2 106141, 2978573, 90075390, 1611383, 92613297, 41555783, 09370633 ####[facility] [address] [place] [address] MCH (RBC) [Entitic mass] 28.0 pg Normal 27.0-34.0 [facility] Comment on above: Performed By: #### 2 793267, 7079435, 47118636, 4604285, 34115624, 71748932, 43515105 ####[facility] [address] [place] [address] MCHC (RBC) [Mass/Vol] 32.0 g/dL Normal 31.4-36.0 [facility] Comment on above: Performed By: #### 2 706556, 2267104, 76052723, 9133338, 04420098, 83574507, 65000551 ####[facility] [address] [place] [address] MCV (RBC) [Entitic vol] 87.6 fL Normal 80.0-100.0 [facility] Comment on above: Performed By: #### 2 672886, 0234251, 45885130, 5042055, 98619276, 07642977, 10714792 ####[address] [address] Platelet mean volume (Bld) [Entitic vol] 8.4 fL Normal 6.4-10.8 [facility] Comment on above: Performed By: #### 2 907932, 3729381, 00357977, 2238996, 77315200, 73921648, 15225135 ####[address] [address] Platelets (Bld) [#/Vol] 238.0 E9/L Normal 150.0-500.0 [facility] Comment on above: Performed By: #### 2 874572, 6936031, 96224102, 2493483, 52789819, 63025818, 67216749 ####[address] [address] RBC (Bld) [#/Vol] 4.2 E12/L Low 4.3-5.9 [facility] Comment on above: Performed By: #### 2 144198, 8907610, 96495256, 8418845, 40730074, 84779203, 46494768 ####[address] [place] [address] WBC corrected for nucl RBC Auto (Bld) [#/Vol] 16.3 E9/L High 4.0-11.0 [facility] Comment on above: Result Comment: Franny chaudhry reviewed by LW. Performed By: #### 2 705720, 8782008, 62374821, 2066576, 42128829, 04266008, 35674987 ####[facility] [address] [place] [address] CHEMISTRYOrdered By: SYSTEM SYSTEM on 08-09-2022 Troponin [...] 50 mL/min/1.73 m2 Low >=59mL/min/1 .73 m2 [facility] Chem S Glucose [Mass/Vol] 121 mg/dL Normal 55 - 199 mg/dL [facility] Remisol Potassium [Moles/Vol] 3.9 mmol/L Normal 3.5 - 5.3 mmol/L FT Remisol Sodium [Moles/Vol] 137 mmol/L Normal 135 - 145 mmol/L [facility] Remisol Troponin I.cardiac [Mass/Vol] 4.00 pg/mL Low 10.10 - 27.10 pg/mL [facility] Remisol Urea nitrogen [Mass/Vol] 18 mg/dL Normal 5 - 21 mg/dL [facility] Remisol Urea nitrogen/Creatinine [Mass ratio] 16 mg/mg Normal 10 - 20 [facility] Remisol CHEMISTRYOrdered By: Evelyn Mercado tter on 08-09-2022 Natriuretic peptide B (Bld) [Mass/Vol] 19 pg/mL Normal 5 - 80 pg/mL [facility] HemeManSS COAGULATIONOrdered By: Sagar Castorena on 08-09-2022 aPTT Coag (PPP) [Time] 31.4 s Normal 25.1 - 36.5 second(s) [facility] Auto Coag INR Coag (PPP) [Relative time] 0.9 {INR} Invalid Interpretation Code [facility] Auto Coag PT Coag (PPP) [Time] 10.3 s Normal 9.4 - 1 2.5 second(s) [facility] Auto Coag CTA Cheston 08-09-2022 CTA Chest [...] 370 Contrast amount in ml's: 73 Normal [facility] Discharge Instructionson Discharge Instructions [id number]# 1.00CD:127 Normal [facility] ED Clinical Summaryon 2022 ED Clinical Summary [place] [id number] ED Clinical Summary Person Information Name: VIVIAN VANN Vika/[facility] Age: 62 Years : 1960 Sex: Female Language: Venezuelan PCP: Екатерина Robert MD Marital Status: Visit [...] 08/09/2022 18:01:49 08/09/2022 18:01:49 08/09/2022 18:01:49 AD[address]: [address] [id number] PHYS DOC NOTES: MEDICAL INFORMATION: Prescriptions Given: [facility], [address] [place], [place] [id number], [phone] brompheniramine/dextr omethorphan/PSE (Bromfed DM oral syrup) 5 [...] Follow up: With: Address: When: Екатерина Robert [address] [place] [address], [facility] [address] [place] [id number] [facility] (1) In 3 days 08/12/2022 Comments: Call the office of your primary care doctor to arrange for follow-up within the above-stated timeframe. Follow-up with your primary care doctor about this ED visit. You should review your labs, imaging, and diagnoses from this ED visit with your primary care physician. If y (more content not included)... Normal [facility] ED Note-Physicianon 08-10-19 ED Note-Physician Basic Information [...] that she has had 2 admissions to [facility] over the last few weeks for pneumonia/COPD exacerbation. Patient is currently on amoxicillin at home, feels that her symptoms are not improving but are in fact worsening. Patient endorses fevers and chills, myalgias. Patient reports her symptoms had not improved much on her last discharge from [place], and worsening since that time. Patient is [...] and Complexity of Problems Differential Diagnosis: [] [facility] Data External documents reviewed: [] My [...] co (more content not included)... Normal [facility] Comment on above: Result Comment: Elec [...] these instructions at home: Medicines ? Take inuo-vfj-jzcdpzb and prescription medicines (inhaled or pills) only [...] you e (more content not included)... Normal [facility] ED Patient Summaryon 023 ED Patient Summary [address] [address] Patient Discharge Instructions Person Information Name: VIVIAN VANN Age: 62 Years Arrival Date: 08/09/2022 13:09:07 Discharge Diagnosis: COPD exacerbation Primary Care Physician: Екатерина Robert MD Provider Information Primary Provider: Arsenio Martin DO Advanced Elevator Erector Helper:Clinton Lucero PA-C The exam and treatment you received in the Emergency Department were for an urgent problem and are not intended as complete care. It is important that you follow up with a doctor, nurse practitioner, or physician?s surveyor instrument assistant for ongoing care. If your symptoms [...] Follow-up Instructions: With: Address: When: Екатерина Robert [address] [place] [address], [place] [address] [place] [address] Business (1) In 3 days [...] opioids can be used to help relieve kgaztdvi-yu-smgjbi pain and are often prescribed following a [...] Safely disp (more content not included)... Normal [facility] EMS Documentationon 08-10-19 EMS Documentation Please click on link to see report nilPfgt14STUKVi5gWtXT CiX5+prnDQolQUJDcGRmI JEfWmL9MYrwOnEnBJ9dpp 2SQPbPD5KwNNUzNVy4Nq1 I COicUQa5SWPhLE1XR6hgW Lg3TmG3Ev3LkW6sKEApnc YzMSAXD81hAnbqJdAjINi wEOCeRun2GqFI Oc2lFVAvQBPrCLNkAWFhA CAgICAgICAgICAgICAgIC AgICAgICAgICAgICAgICA gICAgICAgICAg ICAgICAgICAgICAgICAgI CAgICAgDQplbmRvYmoNCg 5WcMRwUn8EGvZrTsDKZhT wMDAwMDAwMzIg FRMhEVUgnx5ONWDbWKIiF IH9AQNrWGCnDJRqDLjvPX QfLQAaDNm1VIBsEQRnBG5 NCjAwMDAwMDE3 NAKlFOLpDLXtxk6IMJJdW DAwMTkzNCAwMDAwMCBuDQ iiQSCwPPNwOJl0KOUyYUN bAC2JObGyJURk JRDhWoOiUZWhCBTvle6OU DAwMDAwMjMxNSAwMDAwMC GcUDmaJMOzOHGzAmq2VNA xVRWzIB6UJxAx CIEyUKE5FNruXMMyULWzp y9CGHWyBCWoMvhgQJWmOE AwMCBuDQowMDAwMDAzMDY cIXPjQDWyUK2M OtExAINkBXM1SODvYROaD CIbzp3EACPhTJRyVmUnNz AwMDAwMCBuDQowMDAwMDA wFFP2AQLvTDUj YT3IDqVtOJGhGAJfOQIkE ERcINFhxh5AVWGgAOYjWV Q8IiBbCDZbIEPzKWrpXGX aLHI1OrE9TDSh CDNpGW8PLjEyZZIlZZD3L ENfSLOdMZLmjm4RHAVhXF QcNAB1UOPpKACuVJWgZWj fJIYlRBS8ALY6 BSSeRWYwTD1KTxYkOPApA DF9HOgkAJCuIRNobq3HXQ AwMDAwOTMwMCAwMDAwMCB uDQowMDAwMDQ5 BBvpRVZqSANfDU8JSkKtG NEjTTL5LCCyPTEdMDXevi 0WoKRguWbkny6ODNhLG4u OVLs9OJGELMH9 CxJ3H9P5ZgJ9ADqNSTnhU FP8AHWVRtH9SWW+CjxGRj SeO7XKCWHFGRGpPdavSMM WMJN7TBckKBh2 KVAyCM3zBt5DoyL8XZF5O HigCAeiAy6ejAXiRbTdQW UYJ9NhucEkOHiXN7UamOI zJMTeP6TYAHB6 Zd50QvdxeNcWALN4PSXJI HdiVD8FKpuJTmSaLLqiAe 63G5YIn6I0IoWnE5FVzHi QckXRGMaiN7gG yPY3c3alqVrZmCPRkYupW GdJcndPalFSQUlqUHNXaE 76ljtHZ7WnQFl5E2UVLd2 WGEgbRmErqQ2Y qHmiTTP7fS3eWPXMTMrAR txwSE3GJTXHTUa0VJt+Pi AgICAgICAgICAgICAgICA gICAgICAgICAg ICAgICAgICAgICAgICAgI CAgICAgICAgICAgICAgIC AgICAgICAgICAgICAgICA gICAgICAgICAg ICAgICAgICAgICAgICAgI CAgICAgICAgICAgICAgIC AgICAgICAgICAgICAgICA gICAgICAgICAg ICAgICAgICAgICAgICAgI CAgICAgICAgICAgICAgIC AgICAgICAgICAgICAgICA gICAgICAgICAg ICAgICAgICAgICAgICAgI CAgICAgICAgICAgICAgIC AgICAgICAgICAgICAgICA gICAgICAgICAg ICAgICAgICAgICAgICAgI CAgICAgICAgICAgICAgIC AgICAgICAgICAgICAgICA gICAgICAgICAg ICAgICAgICAgICAgICAgI CAgICAgICAgICAgICAgIC AgICAgICAgICAgICAgICA gICAgICAgICAg ICAgICAgICAgICAgICAgI CAgICAgICAgICAgICAgIC AgICAgICAgICAgICAgICA gICAgICAgICAg BM0Ms8YlujP6mtHtHNqfQ TasOMWDBc9EKCihIoMaUU 8bxo5HXWlVY11qlWWpBEK hIDIxIDAgUgov E5PwtfNkiXuilnKeInJgX TEKFl6KgQLHTGroC8H1fL jnCWCbDYuqTFYFKu7PYPx xRB1kGBZmYAUo Fm0hJDooLFOqUJIuTxKrV LNOIf6SrMRsLZ7HZDDhlF 9nCj4+DQplbmRvYmoNCg0 KMjQgMCBvYmoN Jdt5Iy0VqRt1MRLdM8YoZ YZyNLMcd6MeTw9XLZ6mwT zhMBQ5Ac1ITVp5Qf7+DQp reTLxSO0IBpmq S9UpMMQmQTFkSDIlPHlRd XCgAIUpQLYQVIyLgXHaDQ jzpTYDMsAQZzMCEmJQzMC pRtF6RArXD4V2 RBaDPcSff8M6URvMXPGWB oPeGUrAeVcM7rGXxIdHie P61DW8cOnHRZHwWINJ8VZ jhQzK4VpQLb3M 5J6CXA0pl3JdVISfWVlil kGbNvmUYb4FJuOvNQCvZt dVOet9Mu6Fo286UW64roI bNDIgMCBSXQov NEEzxBUJj7zuKfLwXMQ2S KZlYwlbJUgbJGWkZG62YI WyLUYuZywwUxSbj0AuJ4Y bLEv7Nd6KP1Jw EFG6ZTe2Ep8IAKCzZtLwV mWnBHWVGj5VZh2HO1E1xE SeV1YpR2OOYt6OUdGhXJ9 odg0CSMgkQyVo JJ4huv9JXTzBI0ONi3fcK lSnZOH6LPTlRexpANyeHd hesWPrDC7LgPF4YZTiN59 hOUzzVKCxQ6Tt TIn0Rp2ZAGEfrRWyYGNsY WgLL9nQXvwwC2PxZJtPT9 fiVmW9OZNeSZHdAdc+Pgo +PoopP9MprZgu PJQfEh8sjCfwILkbZGBrX U9nigGqbLm+Qj5Ym3KxMZ BwVSm4kYOA7AAt6OCzIOB wRYL5MNXmrlCH OXcw4IcEyFQiCrWksAXiR 2aoCTLh20pFPNMwYqoKh2 twFtKm3HxBXU+VZ6IZwkN mVvKyus0BIYxw saPmsEXtEQ8ZJnTzUW5pc d0YWFglWvFkGQ4rpx8ZXQ uEY8IFBH6Rv3UwUSoNX9Q UIMXGH0zALWVK T8mGCHXWU7uWFSMLR01GE RRVM8QOUCCsaEROM0HdHV AFPu6XWrYuQB9axj9CTAk pYVLyLI0zvt4G FFgMB8PZIO5Dp2LnOJtFR 0CrZLJQJb2QEeZjJT0qzp 9VGQvtJYQsOX1hog3MQVc IP9EKUT6Wm8Zc VZqZT1NPJJUIJ6kPOORIG 6wEXAUSV8oNVZFOT06KZD CMN2IQZAAxgDXIT2DeURD GBv5CXnCfUG1p iv3AXBbsZRYtFM2xyi0DZ CsKV3Upl4KGp180EB4QBs dBLS1cX213fyliqy2ke3Z TLUJvbGRNVAov DOAnI8AoUNCrsWRltgCuO YgzQYMjMYDxWl6CzaCmWR luZyAvSWRlbnRpdHktSAo iJ0GbcVrgZYHs TWqoQULKV6YaPM4bL76sN SFlDlBeGABET6V2sSCpA9 LsdnOPBv3NPdOiXC1yqh5 KOKijZWKzIP5h jq5ZPZjBX9Vjd0PTj519O K8KSubFTJ9kR612ugfxej 4fu9WXXJWoaXBXCZwpT9z KR2pueLKsSA3k ocV4FInnM9GcIGQteamoU EcdGV98lXX5AHrwCsGbxR B7vamqMGQkp2DoOIhiF0I wcGxlbWVudCAw Cj4+Op1ACZHWl8hWTT0ma CCjMIIilxLqtYvPQ5ZORN MZA7PpyaTEAYBinyyweL1 yIDMyIDAgUgov E1DlaOtgFDVfI0dOUu9qr KU5rOCmWa8GdQSvPT2Ks0 53Jj3IZFteUIflVUXfSX4 nHAr9Jf8WMe2J QrFpSW7dkq9UHOzsZzQeS D0mfj1WQXfXT6AzH7FrxU O9OtEaNCY7REVWX1JboDh duKdgiEE7IKLj Pni5OPlZE4Qhv2QsloGsT rQmVwZ5Zgp2Et3RaYLcrr NhEKbgHo1hhEYUw6eoMe1 nUOUcEDc3DYDd TPkvOQ37EYbfQkQ5RQIcV dZwICTfYLQjUJ0xAVF2SM 1WA5VelxGNlYuqEcT3NIY pTEWZS7IcvuDH ZV2nPO7EHfqTDC7yG457x nyarl5mz9TMXWDalPISUB pnHRByjZouFG0cmYEsPQa mP9FduDDcRuQz NYzaPIfAU3Q3vCFjP4Aca yYAOIBqkforpG9iOu2+DQ hzxkKmMgmJRb4VRqPdHMV mDtzGMxr0Cz6G pSn0CLSsY0EwKXQgLIGwc 2NeGw1VGJ8qcAtvXeD2Eo 4+ACrfdPBeGS8RZoibXFB ZlbVaDHa4B7yE SmDHBJfHHIebbiIvM5CzT 3f1dHqOyDvs4C8jeiQKaq jmN7frm45B1Y4+uRqv6GQ AhpDGp3J3s9f7 aHZ1UWnxPCv0TyuzQk2f8 BxLoridpwBDY/uRlSXnyV iPNfHOcGVO9whaAFYsSLv jj6d9oFvU22kx vzCADVywquIa+de49ix0l iSsdRfd9Dk6ML7SlUCqd4 qADxRLcfAjngs3Xuhgt2X YETcVi4OwLCTl /5McXm836dG9nA8lguBBG Yt2kXHWIsHChNms1i2fGm NsSR2CdW5uHnRU5f8RhbN Tl9o69oUCL6Rg RvIayawgcodHIYmkChnJi xckc/IyUO1bo3SmFOV+y+ pLtIOuVlpm0RkpDo9VjfW O31eLJXkY32/A uA6HAo1hgyfaZa2SLB6wr 3RyZWFtDQplbmRvYmoNCg 0PVaPmCMHgNpsELos7Bx0 YYXIpEc1auHVq LmuYSRvEV0AzqJKxXEDRQ PxRX61GXt4NNQUaHD8lMO 74Ns8axXPgXqB9ZYFfBq3 GG2JwA81ohE6m OI3HALBmeIo6nV3WLz0Id MS3bJSkPI0YqQPzZBdwPK 9Uyjqfn9QbIRL5 (more content not included)... Normal [facility] FT Blood GasesOrdered By: Ra raciel Marx on 08-09-2022 a/A Ratio Art 75.90 % Normal >=0.80% [facility] Resp Auto SS AaDO2 Art 21.9 mm[Hg] High 5.0 - 15.0 mmHg FT Resp Auto SS Allens Test Not Applicable (08/09/22 2:03 PM) Normal [facility] Resp Auto SS Base Excess Arterial 3.1 mmol/L Normal >=2.8mmol/L FTM C Resp Auto SS cCa2+ Art 4.86 mg/dL Normal 4.40 - 5.30 mg/dL FT Resp Auto SS cCl- Art 105.0 mmol/L Normal 101.0 - 111.0 mmol/L FT Resp Auto SS cGlu Art 117 mg/dL High 55 - 99 mg/dL FT Resp Auto SS cK+ Art 4.0 mmol/L Normal 3.5 - 5.3 mmol/L [facility] Resp Auto SS cLac Art 1.4 mmol/L Normal 0.5 - 2.2 mmol/L [facility] Resp Auto SS enterprise resource planning consultant+ Art 142.0 mmol/L Normal 135.0 - 145.0 mmol/L [facility] Resp Auto SS Drawn by RLG Invalid Interpretation Code [facility] Resp Auto SS FCOHb Art 1.0 % Low 1.5 - 4.9 % [facility] Resp Auto SS FIO2 BG 21 Invalid Interpretation Code [facility] Resp Auto SS FMetHb Art 0.5 % Normal 0.0 - 1.9 % [facility] Resp Auto SS FO2Hb Art 92.6 % Normal 92.0 - 100.0 % [facility] Resp Auto SS HCO3 (Bld) [Moles/Vol] 27.1 mmol/L High 22.0 - 26.0 mmol/L [facility] Resp Auto SS Hemoglobin (Bld) [Mass/Vol] 12.5 g/dL Normal 12.0 - 16.0 gm/dL [facility] Resp Auto SS P CO2 Arterial 48.9 mm[Hg] High 35.0 - 45.0 mmHg [facility] Resp Auto SS P O2 Arterial 68.8 mm[Hg] Low 80.0 - 100.0 mmHg [facility] Resp Auto SS pH Arterial 7.383 Normal 7.350 - 7.450 [facility] Resp Auto SS Sample Site R Brachial (08/09/22 2:03 PM) Normal [facility] Resp Auto SS Sample Type Arterial Draw (08/09/22 2:03 PM) Normal [facility] Resp Auto SS HEMATOLOGYOrdered By: SYSTEM SYSTEM [...] 16.3 E9/L High 4.0 - 11.0 E9/L [facility] HemeAutoSS Comment on above: Result Comment: Slid e reviewed by LW. PT & PTTon 08-09-2022 aPTT Coag (PPP) [Time] 31.4 second(s) Normal 25.1-36.5 [facility] Comment on above: Result Comment: Para meter [...] the same coagulation reagent and instrumentation as [facility]. Currently there are no coagulation studies available worldwide for children to 14 days, and no normal ranges. Heparin therapeutic range (represented by Anti-Factor Xa activity of 0.2 - 0.4 U/mL) corresponds to PTT of 56.6 - 109.0 sec. Performed By: #### 2 [id number], [id number] ####[id number] [place] [address] INR Coag (PPP) [Relative time] 0.9 {INR} Invalid Interpretation Code [facility] Comment on above: Result Comment: INR results are specifically intended to assess patients stabilized on long-term Anticoagulation therapy suggested INR?s ?Less Intensive Anticoagulation? 2.0 ? 3.0 Conventional Range 3.0 ? 4.5 Performed By: #### 2 [id number], [id number] ####[facility] [address] [place] [address] PT Coag (PPP) [Time] 10.3 second(s) Normal 9.4-12.5 [facility] Comment on above: Result Comment: 15 d [...] the same coagulation reagent and instrumentation as [facility]. Currently there are no coagulation studies available worldwide for children to 14 days, and no normal ranges. Performed By: #### 2 [id number], [id number], [id number], [id number], [id number], [id number], [id number] ####[facility] [address] [place] [address] Pre-Arrival Noteon Pre-Arrival Note Pre-Arrival Summary Name: , Current Date: 08/09/2022 13:09:29 EDT Gender: Female Date of : Age: 62 Pre-Arrival Type: EMS ETA: 08/09/2022 13:33:00 EDT Primary Care Physician: Presenting Problem: sob Pre-Arrival User: John Martin Referring Source: Location: [place] Completion Date/Time: 08/09/2022 13:03:00 [facility] Emergency Department Pre-Hospital Report Form Vital Signs: Pre-Hospital Report: Treatment in Route: Response to Treatment: Misc. Issues: Normal [facility] Troponin 0 Hr.on 08-09-2022 Troponin I.cardiac [Mass/Vol] 4.00 pg/mL Low 10.10-27.10 [facility] Comment on above: Result Comment: The 95% CI (Confidence Interval) PPV (Positive Predictive Value) for myocardial infarction in females is 38 pg/mL, in males 51 pg/mL. The results should be used in conjunction with clinical conditions of myocardial infarction. (Cibiem High Sensitivity Troponin I Instructions For Use, [employer], December 2017) Performed By: #### 2 [id number], [id number], [id number], [id number], [id number], [id number], [id number] ####[facility] [address] [place] [address] Troponin 3 Hr.on 08-09-2022 Troponin I.cardiac [Mass/Vol] 7.00 pg/mL Low 10.10-27.10 [facility] Comment on above: Result Comment: The 95% CI (Confidence Interval) PPV (Positive Predictive Value) for myocardial infarction in females is 38 pg/mL, in males 51 pg/mL. The results should be used in conjunction with clinical conditions of myocardial infarction. (Cibiem High Sensitivity Troponin I Instructions For Use, [employer], December 2017) Performed By: #### 1 [id number] ####[id number] [place] [address] XR Chest Single Viewon 08-09 XR Chest [...] Signature): 08/09/2022 3:38 pm Signed by: Phil Alvraez MD, V. Transcribed by: SRAVANI Technologist: SADIA Technical Comments Radiation Dose: Ka,r in mGy = na DAP = na Normal [facility] eGFRon 08-09-2022 GFR/1.73 sq M.predicted among blacks MDRD (S/P/Bld) [Vol rate/Area] mL/min/{1.73_m2} Normal >=59 [facility] Comment on above: Order Comment: Order added by Discern Expert. Result Comment: eGFR is race adjusted. AA=. Performed By: #### 2 [id number], [id number], [id number], [id number], [id number], [id number], [id number] ####[facility] [address] [place] [address] GFR/1.73 sq M.predicted among non-blacks MDRD (S/P/Bld) [Vol rate/Area] 50 mL/min/1.73 m2 Low >=59 [facility] Comment on above: Order Comment: Order added by Discern Expert. Result Comment: Certified Veterinary Technician valeria kidney disease could be indicated at eGFR's of less than 60 mL/min/1.73m2. Kidney failure is indicated at less than 15 mL/min/1.73m2. Performed By: #### 2 [id number], [id number], [id number], 2743763, 06361232, [id number], [id number] ####[facility] [address] [place] [address] CBC W MANUAL DIFFon 08-02-19 ATYPICAL LYMPH # Normal [facility] Comment on above: Performed By: #### Isabell PONCE ####[facility] [id number] Yañez ATYPICAL LYMPH % Normal [facility] Comment on above: Performed By: #### Isabell PONCE ####[facility] [address] [place] [id number]. Nahed Yañez BAND # 0.9 103/ul Critically high 0.0-0.3 [facility] Comment on above: Performed By: #### C BCMAN ####[facility] [address] [place] [address]Dr. Nahed Yañez BAND % 5 % Normal 0-5 [facility] Comment on above: Performed By: #### C BCMAN ####[facility] [address] [place] [address]Dr. Yiashley Yañez BASOM # 0.00 103/ul Normal 0.00-0.10 [facility] Comment on above: Performed By: #### C BCISAIAH ####[facility] [address] [place] [address]Dr. Nahed Yañez BASOM % 0.0 % Critically low 0.2-2.0 [facility] Comment on above: Performed By: #### C BCISAIAH ####[facility] [address] [place] [address]Dr. Nahed Yañez BLAST # Normal [facility] Comment on above: Performed By: #### C BCISAIAH ####[facility] [address] [place] [address]Dr. Yilan Yañez BLAST % Normal [facility] Comment on above: Performed By: #### C BCISAIAH ####[facility] [address] [place] [place] [address]Dr. Nahed Yañez CORRECTED WBC Normal 4.0-11.0 [facility] Comment on above: Performed By: #### C BCMAN ####[facility] [address] [place] [place] [address]Dr. Nahed Yañez EOS # 0.00 103/ul Normal 0.00-0.70 [facility] Comment on above: Performed By: #### C BCMAN ####[facility] [address] [place] [address]Dr. Nahed Yañez EOS% 0.0 % Critically low 0.9-7.0 [facility] Comment on above: Performed By: #### C BCISAIAH ####[facility] [address] [place], [place] [address]Yu. Nahed Yañez HCT 39.5 % Normal 36.0-48.0 [facility] Comment on above: Performed By: #### C ROSARIO ####[facility] [address] [place] [id number]. Nahed Yañez HGB 13.0 g/dl Normal 12.0-16.0 [facility] Comment on above: Performed By: #### C ROSARIO ####[facility] [address] [place] [id number]. Nahed Yañez LYMPHM # 1.72 103/ul Normal 1.20-3.80 [facility] Comment on above: Performed By: #### C ROSARIO ####[facility] [address] [place] [address]Dr. Nahed Yañez LYMPHM% 10.0 % Critically low 20.5-60.0 [facility] Comment on above: Performed By: #### Isabell PONCE ####[facility] [address] [place] [address]Dr. Nahed Yañez MCH 28.7 pg Normal 26.7-34.0 [facility] Comment on above: Performed By: #### Isabell PONCE ####[facility] [address] [place] [address]Dr. Nahed Yañez MCHC 32.9 g/dl Normal 29.9-35.2 [facility] Comment on above: Performed By: #### C ROSARIO ####[facility] [address] [place] [place] [address]Dr. Nahed Yañez MCV 87.2 fL Normal 81.0-99.0 [facility] Comment on above: Performed By: #### C ROSARIO ####[facility] [address] [place] [id number]. Nahed Yañez METAMYELOCYTE # Normal [facility] Comment on above: Performed By: #### C ROSARIO ####[facility] [address] [place] [id number]. Nahed Yañez METAMYELOCYTE % Normal [facility] Comment on above: Performed By: #### C ROSARIO ####[facility] [address] [place], [place] [address]Rv. Nahed Yañez MONOM# 0.86 103/ul Critically high 0.30-0.80 [facility] Comment on above: Performed By: #### C ROSARIO ####[facility] [address] [place], [place] [address]Dc. Nahed Yañez MONOM% 5.0 % Normal 1.7-12.0 [facility] Comment on above: Performed By: #### C ROSARIO ####[facility] Fr[address] [place], [place] [address]Vy. Nahed Yañez MPV 9.8 fL Normal 9.5-13.5 [facility] Comment on above: Performed By: #### C ROSARIO ####[facility] [address] [id number]. Nahed Yañez MYELOCYTE # Normal [facility] Comment on above: Performed By: #### C ROSARIO ####[facility] [address] [place], [place] [address]Dw. Nahed Yañez MYELOCYTE % Normal [facility] Comment on above: Performed By: #### C ROSARIO ####[facility] [address] [place], [place] [address]Uq. Nahed Yañez NRBC Normal [facility] Comment on above: Performed By: #### C ROSARIO ####[facility] [address] [place] [id number]. Nahed Yañez PLT 388 103/ul Normal 150-450 [facility] Comment on above: Performed By: #### C ROSARIO ####[facility] [address] [place] [id number]. Nahed Yañez RBC 4.53 106/ul Normal 4.20-5.40 [facility] Comment on above: Performed By: #### C ROSARIO ####[facility] [address] [place] [id number]. Rosemarieashley Otilio RDW 14.4 % Normal 11.0-15.0 [facility] Comment on above: Performed By: #### C BCMAN ####[facility] [address] [place] [address]Dr. Nahed Yañez SEG # 13.76 103/ul Critically high 1.40-6.50 [facility] Comment on above: Performed By: #### C BCMAN ####[facility] [address] [place] [address]Dr. Nahed Yañez SEG % 80.0 % Critically high 43.0-75.0 [facility] Comment on above: Performed By: #### C ROSARIO ####[facility] [address] [place] [address]Dr. Nahed Yañez WBC 17.2 103/ul Critically high 4.0-11.0 [facility] Comment on above: Performed By: #### C ROSARIO ####[facility] [address] [place] [address]Dr. Nahed Yañez MAGNESIUMon 08-01-2022 Magnesium [Mass/Vol] 2.0 mg/dL Normal 1.8-2.4 [facility] Comment on above: Performed By: #### MG COLE, CMP ####[facility] [address] [place] [address]DrShaun Rosemarieashley Yañez POINT OF CARE GLUCOSEon 07-13 Glucose [Mass/Vol] 267 mg/dL Critically high 74-106 [facility] Comment on above: Performed By: #### P OCGLUC ####[facility] [address]brf[address]fi[address] [place] [address]DrShaun Yañez PROF 14(COMP METB)on 023 Albumin [Mass/Vol] 3.4 g/dL Normal 3.4-5.0 [facility] Comment on above: Performed By: #### MG COLE, CMP ####[facility] [address]ineeg[address] [place] [address]Dr. Nahed Yañez Albumin/Globulin [Mass ratio] 0.9 {ratio} Normal [facility] Comment on above: Performed By: #### MG COLE, CMP ####[facility] [address]ydw[address] [id number]. Nahed Yañez ALP [Catalytic activity/Vol] 100 U/L Normal 46-116 [facility] Comment on above: Performed By: #### MG COLE, CMP ####[facility] [address] [place] [address]Dr. Nahed Yañez ALT [Catalytic activity/Vol] 19 U/L Normal 14-59 [facility] Comment on above: Performed By: #### MG COLE, CMP ####[facility] [address] [place] [address]Dr. Nahed Yañez Anion gap [Moles/Vol] 12.7 mmol/L Normal [facility] Comment on above: Performed By: #### MG COLE, CMP ####[facility] [address]jahsp[address] [place] [address]Dr. Nahed Yañez AST [Catalytic activity/Vol] 13 U/L Critically low 15-37 [facility] Comment on above: Performed By: #### MG COLE, CMP ####[facility] F[address]ravtbb4[address] [place] [address]Dr. Nahed Yañez Bilirubin [Mass/Vol] 0.4 mg/dL Normal 0.2-1.0 [facility] Comment on above: Performed By: #### MG COLE, CMP ####[facility] [address] [place] [address]Dr. Nahed Yañez Calcium [Mass/Vol] 9.5 mg/dL Normal 8.5-10.1 [facility] Comment on above: Performed By: #### MG COLE, CMP ####[facility] [address]lqtcyuzx[address] [place] [address]Dr. Nahed Yañez Chloride [Moles/Vol] 100 mmol/L Normal 98-107 [facility] Comment on above: Performed By: #### MG COLE, CMP ####[facility] Rrtxnsibav[address]706 [place] [address]Dr. Rosemarieashley Yañez CO2 [Moles/Vol] 27.1 mmol/L Normal 21.0-32.0 [facility] Comment on above: Performed By: #### MG COLE, CMP ####[facility] [address] [place] [address]Dr. Nahed Yañez Creatinine [Mass/Vol] 1.16 mg/dL Critically high 0.55-1.02 [facility] Comment on above: Performed By: #### MG COLE, CMP ####[facility] [address] [place], [place] [address]Dr. Nahed Yañez EGFR-AF KUWAITI 58 mL/min/1.73m2 Critically low >=60 [facility] Comment on above: Performed By: #### MG COLE, CMP ####[facility] [address] [place], [place] [address]Dr. Nahed Yañez EGFR-NON AF KUWAITI 47 mL/min/1.73m2 Critically low >=60 [facility] Comment on above: Performed By: #### MG COLE, CMP ####[facility] X[address]uf[address] [place], [place] [address]Dr. Nahed Yañez Globulin (S) [Mass/Vol] 3.6 g/dL Normal [facility] Comment on above: Performed By: #### MG COLE, CMP ####[facility] [address]avle[address] [place] [address]Dr. Rosemarieashley Yañez Glucose [Mass/Vol] 175 mg/dL Critically high 74-106 [facility] Comment on above: Performed By: #### MG COLE, CMP ####[facility] [address]vt[address] [place], [place] [address]Dr. Nahed Yañez Potassium [Moles/Vol] 3.8 mmol/L Normal 3.5-5.1 [facility] Comment on above: Performed By: #### MG COLE, CMP ####[facility] [address]xoa[address] [place] [address]Dr. Nahed Yañez Protein [Mass/Vol] 7.0 g/dL Normal 6.4-8.2 [facility] Comment on above: Performed By: #### MG COLE, CMP ####[facility] Ypynfculrl[address] [place], [place] [address]Dr. Nahed Yañez Sodium [Moles/Vol] 136 mmol/L Normal 136-145 [facility] Comment on above: Performed By: #### MG COLE, CMP ####[facility] S[address]pcxatwx[address] [place], [place] [address]Dr. Nahed Yañez Urea nitrogen [Mass/Vol] 25.0 mg/dL Critically high 7.0-18.0 [facility] Comment on above: Performed By: #### MG COLE, CMP ####[facility] Jkownmtjar[address] [place], [place] [address]Dr. Nahed Yañez Urea nitrogen/Creatinine [Mass ratio] 21.6 mg/mg Normal [facility] Comment on above: Performed By: #### MG COLE, CMP ####[facility] Fhuqjbetwl[address] [place], [place] [address]Dr. Nahed Yañez THEOPHYLLINEon 08-01-2022 THEOPHYLLINE 17.1 ug/mL Normal 10.0-20.0 [facility] Comment on above: Performed By: #### MG COLE, CMP ####[facility] [address]yli[address]sb[address] [place], [place] [address]Dr. Nahed Yañez CBC AUTO DIFFon 07-31-2022 BASO # 0.0 103/ul Normal 0.0-0.1 [facility] Comment on above: Performed By: #### C BC ####[facility] [address]yearxrmkr[address] [place], [place] [address]Dr. Nahed Yañez Basophils/100 WBC (Bld) 0.2 % Normal 0.2-2.0 [facility] Comment on above: Performed By: #### C BC ####[facility] Yhoqfhzc[address] [place], [place] [address]Dr. Nahed Yañez EO # 0.0 103/ul Normal 0.0-0.7 [facility] Comment on above: Performed By: #### C BC ####[facility] Ylsnvhnmxj[address] [place], [place] [address]Dr. Nahed Yañez Eosinophils/100 WBC (Bld) 0.0 % Critically low 0.9-7.0 [facility] Comment on above: Performed By: #### C BC ####[facility] Ftgfbxmqbn[address] [place] [address]Dr. Nahed Yañez Erythrocyte distribution width (RBC) [Ratio] 14.2 % Normal 11.0-15.0 [facility] Comment on above: Performed By: #### C BC ####[facility] [address]tbef[address]ojay[address] [place], [place] [address]Dr. Nahed Yañez Hematocrit (Bld) [Volume fraction] 36.0 % Normal 36.0-48.0 [facility] Comment on above: Performed By: #### C BC ####[facility] Kdqygyylog[address] [place], [place] [address]Dr. Nahed Yañez Hemoglobin (Bld) [Mass/Vol] 11.4 g/dL Critically low 12.0-16.0 [facility] Comment on above: Performed By: #### C BC ####[facility] [address]ujdmkv[address] [place], [place] [address]Dr. Nahed Yañez IG # 0.21 10e3/ul Critically high 0.00-0.03 [facility] Comment on above: Performed By: #### C BC ####[facility] Erfslpdmli[address] [place], [place] [address]Dr. Nahed Yañez IG % 1.8 % Critically high 0.0-0.5 [facility] Comment on above: Performed By: #### C BC ####[facility] Dntufgmpzo[address] [place], [place] [address]Dr. Nahed Yañez LYMPH # 1.3 103/ul Normal 1.2-3.8 [facility] Comment on above: Performed By: #### C BC ####[facility] Lztkdcymdo[address] [place], [place] [address]Dr. Nahed Yañez Lymphocytes/100 WBC (Bld) 11.2 % Critically low 20.5-60.0 [facility] Comment on above: Performed By: #### C BC ####[facility] Zzpzxydsbm[address] [place], [place] [address]Dr. Nahed Otilio MANUAL DIFF REQ NO Normal [facility] Comment on above: Performed By: #### C BC ####[facility] [address]viyrwzrxo[address] [place] [address]Dr. Nahed Yañez MCH (RBC) [Entitic mass] 27.7 pg Normal 26.7-34.0 [facility] Comment on above: Performed By: #### C BC ####[facility] Ff[address]absikdw4554 [place] [address]Dr. Nahed Yañez MCHC (RBC) [Mass/Vol] 31.7 g/dL Normal 29.9-35.2 [facility] Comment on above: Performed By: #### C BC ####[facility] Ekyuzgrqvm9932 [place] [address]Dr. Nahed Otilio MCV (RBC) [Entitic vol] 87.6 fL Normal 81.0-99.0 [facility] Comment on above: Performed By: #### C BC ####[facility] Yfaodoyaat[address] [place], [place] [address]Dr. Nahed Otilio MONO # 0.8 103/ul Normal 0.3-0.8 [facility] Comment on above: Performed By: #### C BC ####[facility] Wmcginhoyi[address] [place], [place] [address]Dr. Rosemarieashley Yañez Monocytes/100 WBC (Bld) 7.0 % Normal 1.7-12.0 [facility] Comment on above: Performed By: #### C BC ####[facility] Jqcyadqqsm[address] [place], [place] [address]Dr. Rosemarieashley Otilio NEUT # 9.2 103/ul Critically high 1.4-6.5 [facility] Comment on above: Performed By: #### C BC ####[facility] [address]ozowyj[address] [place], [place] [address]Dr. Rosemarieashley Yañez Neutrophils/100 WBC (Bld) 79.8 % Critically high 43.0-75.0 [facility] Comment on above: Performed By: #### C BC ####[facility] [address] [place] [address]. Nahed Yañez Platelet mean volume (Bld) [Entitic vol] 9.8 fL Normal 9.5-13.5 [facility] Comment on above: Performed By: #### C BC ####[facility] [address]ossivsq[address] [place] [address]Dr. Nahed Yañez PLT 317 103/ul Normal 150-450 [facility] Comment on above: Performed By: #### C BC ####[facility] [address]xocswtrw6288 [place] [address]Dr. Nahed Yañez RBC 4.11 106/ul Critically low 4.20-5.40 [facility] Comment on above: Performed By: #### C BC ####[facility] Rybljywvrk6451 [place] [address]Dr. Nahed Yañez WBC 11.5 103/ul Critically high 4.0-11.0 [facility] Comment on above: Performed By: #### C BC ####[facility] Yphweaonyb2141 [place] [address]Dr. Nahed Yañez MAGNESIUMon 07-31-2022 Magnesium [Mass/Vol] 1.8 mg/dL Normal 1.8-2.4 [facility] Comment on above: Performed By: #### M JUDY Moore, [facility] ####[facility] Ifzmundbja6[address] [place] [address]Dr. Nahed Yañez POINT OF CARE GLUCOSEon 07-13 Glucose [Mass/Vol] 217 mg/dL Critically high 74-106 [facility] Comment on above: Performed By: #### P OCGLUC ####[facility] Xfswnekkgh2045 [place] [address]Dr. Nahed Yañez Glucose [Mass/Vol] 169 mg/dL Critically high 74-106 [facility] Comment on above: Performed By: #### P OCGLUC ####[facility] Jlnnppqzds7516 [place] [address]Dr. Nahed Yañez Glucose [Mass/Vol] 297 mg/dL Critically high 74-106 [facility] Comment on above: Performed By: #### P OCGLUC ####[facility] Hwmyaxrawh4604 [place] [address]Dr. Nahed Yañez Glucose [Mass/Vol] 233 mg/dL Critically high 74-106 [facility] Comment on above: Performed By: #### P OCGLUC ####[facility] Ofjlqtxzdy7836 [place] [address]Dr. Nahed Yañez PROF 14(COMP METB)on 023 Albumin [Mass/Vol] 3.0 g/dL Critically low 3.4-5.0 [facility] Comment on above: Performed By: #### JUDY Castro, CMP ####[facility] Qxrdeekvpi7248 [place] [address]Dr. Nahed Yañez Albumin/Globulin [Mass ratio] 0.8 {ratio} Normal [facility] Comment on above: Performed By: #### JUDY Castro, CMP ####[facility] Jgwgrbcvmo[address] [place], [place] [address]Dr. Nahed Yañez ALP [Catalytic activity/Vol] 83 U/L Normal 46-116 [facility] Comment on above: Performed By: #### JUDY Castro, CMP ####[facility] Porimfyigc2352 [place] [address]Dr. Nahed Yañez ALT [Catalytic activity/Vol] 21 U/L Normal 14-59 [facility] Comment on above: Performed By: #### JUDY Castro, CMP ####[facility] Laaaodhwam5129 [place] [address]Dr. Nahed Yañez Anion gap [Moles/Vol] 14.8 mmol/L Normal [facility] Comment on above: Performed By: #### JUDY Castro, CMP ####[facility] Wrfzbjtvdc4488 [place] [address]Dr. Nahed Yañez AST [Catalytic activity/Vol] 13 U/L Critically low 15-37 [facility] Comment on above: Performed By: #### JUDY Castro, CMP ####[facility] Wdtwbgghvp4982 [place] [address]Dr. Nahed Yañez Bilirubin [Mass/Vol] 0.2 mg/dL Normal 0.2-1.0 [facility] Comment on above: Performed By: #### JUDY Castro CMP ####[facility] Eatydonlpa[address] [place], [place] [address]Dr. Nahed Yañez Calcium [Mass/Vol] 9.2 mg/dL Normal 8.5-10.1 [facility] Comment on above: Performed By: #### JUDY Castro, CMP ####[facility] Djysqcpzrn[address] [place], [place] [address]Dr. Nahed Yañez Chloride [Moles/Vol] 101 mmol/L Normal 98-107 [facility] Comment on above: Performed By: #### JUDY Castro CMP ####[facility] Hzllaarzem[address] [place], [place] [address]Dr. Nahed Yañez CO2 [Moles/Vol] 26.5 mmol/L Normal 21.0-32.0 [facility] Comment on above: Performed By: #### JUDY Castro, CMP ####[facility] Pymddfacko[address] [place], [place] [address]Dr. Nahed Yañez Creatinine [Mass/Vol] 1.04 mg/dL Critically high 0.55-1.02 [facility] Comment on above: Performed By: #### JUDY Castro CMP ####[facility] Odlpeerltc9[address] [place], [place] [address]Dr. Nahed Yañez EGFR-AF KUWAITI >60 Normal >=60 [facility] Comment on above: Performed By: #### JUDY Castro CMP ####[facility] Twcrpmypzf[address] [place], [place] [address]Dr. Nahed Yañez EGFR-NON AF KUWAITI 54 mL/min/1.73m2 Critically low >=60 [facility] Comment on above: Performed By: #### JUDY Castro CMP ####[facility] Dcutolgjun[address] [place], [place] [address]Dr. Nahed Yañez Globulin (S) [Mass/Vol] 3.6 g/dL Normal [facility] Comment on above: Performed By: #### JUDY Castro, CMP ####[facility] Nugeeyofrq[address] [place] [address]Dr. Nahed Yañez Glucose [Mass/Vol] 171 mg/dL Critically high 74-106 [facility] Comment on above: Performed By: #### JUDY Castro, CMP ####[facility] Gtjmvgcxqz3753 [place] [address]Dr. Nahed Yañez Potassium [Moles/Vol] 3.3 mmol/L Critically low 3.5-5.1 [facility] Comment on above: Performed By: #### JUDY Castro CMP ####[facility] Ilohhvaioh3515 [place] [address]Dr. Nahed Yañez Protein [Mass/Vol] 6.6 g/dL Normal 6.4-8.2 [facility] Comment on above: Performed By: #### JUDY Castro CMP ####[facility] Nxaxmkiipo[address] [place], [place] [address]Dr. Nahed Yañez Sodium [Moles/Vol] 139 mmol/L Normal 136-145 [facility] Comment on above: Performed By: #### JUDY Castro CMP ####[facility] Bbicungokv[address] [place], [place] [address]Dr. Nahed Yañez Urea nitrogen [Mass/Vol] 23.0 mg/dL Critically high 7.0-18.0 [facility] Comment on above: Performed By: #### JUDY Castro CMP ####[facility] Jlclqqimrz[address] [place], [place] [address]Dr. Nahed Yañez Urea nitrogen/Creatinine [Mass ratio] 22.1 mg/mg Normal [facility] Comment on above: Performed By: #### JUDY Castro, CMP ####[facility] Ewztfppznx[address] [place], [place] [address]Dr. Nahed Yañez THEOPHYLLINEon 07-31-2022 THEOPHYLLINE 14.2 ug/mL Normal 10.0-20.0 [facility] Comment on above: Performed By: #### JUDY Castro, CMP ####[facility] Apapqracwm[address] [place], [place] [address]Dr. Nahed Yañez BLOOD CULTURE ID PANELon A. baumannii Not detected Normal NOT DETECTED [facility] Comment on above: Performed By: #### B CID2 ####[facility] [address] [place] [address]Dr. Nahed Yañez Bacteriodes fragilis Not detected Normal NOT DETECTED [facility] Comment on above: Performed By: #### B CID2 ####[facility] Hcdplvvned[address] [place] [address]Dr. Nahed Yañez BCID CONTROLS PASSED Normal [facility] Comment on above: Performed By: #### B CID2 ####[facility] Nsximnjmnf[address] [place] [address]Dr. Nahed Yañez BCIDBTHD BLOOD CULTURE BOTTLE INFORMATION Normal [facility] Comment on above: Performed By: #### B CID2 ####[facility] Burcstjdii[address] [place], [place] [address]Dr. Nahed Yañez BCIDHD1 ANTIMICROBIAL RESISTANCE GENES [facility] Comment on above: Performed By: #### B CID2 ####[facility] Lbvyhjdoyw[address] [place], [place] [address]Dr. Nahed Yañez BCIDHD2 SEE BELOW [place] [facility] Comment on above: Result Comment: Note : Antimicrobial resitance can occur via multiple mechanisms. A Not Detected result for the [employer] antomicrobial resistance gene assays does not indicate antimicrobial susceptibility. Subculturing is required for species identification and susceptibility testing of isolates. Performed By: #### B CID2 ####[facility] Ulwofqsymz[address] [place], [place] [address]Dr. Nahed Yañez BCIDHD3 Positive Normal [facility] Comment on above: Performed By: #### B CID2 ####[facility] Qql[address]xqv[address] [place] [address]Dr. Nahed Yañez BCIDHD4 Negative [place] [facility] Comment on above: Performed By: #### B CID2 ####[facility] S[address]wxkmxe[address] [place] [address]Dr. Nahed Yañez BCIDHD5 YEAST Normal [facility] Comment on above: Performed By: #### B CID2 ####[facility] Cpbkyhykka[address] [place] [id number]. Nahed Yañez Bottle Set: Set 2 Normal [facility] Comment on above: Performed By: #### B CID2 ####[facility] Xxhphrfeok399[address] [place] [address]Dr. Nahed Yañez Bottle: Pediatric Normal [facility] Comment on above: Performed By: #### B CID2 ####[facility] Jicuqqibxz[address] [place] [address]Dr. Nahed Yañez C. neoformans/gattii Not detected Normal NOT DETECTED [facility] Comment on above: Performed By: #### B CID2 ####[facility] Ikliyrgvoi[address]230[address] [place], [place] [address]Dr. Nahed Yañez Sil albicans Not detected Normal NOT DETECTED [facility] Comment on above: Performed By: #### B CID2 ####[facility] Wsuizpxmrp096[address] [place], [place] [address]Dr. Nahed Yañez Sil auris Not detected Normal NOT DETECTED [facility] Comment on above: Performed By: #### B CID2 ####[facility] Hfgexslrfx828[address] [place], [place] [address]Dr. Nahed Yañez Sil glabrata Not detected Normal NOT DETECTED [facility] Comment on above: Performed By: #### B CID2 ####[facility] [address] [place] [address]Dr. Nahed Yañez Sil Krusei Not detected Normal NOT DETECTED [facility] Comment on above: Performed By: #### B CID2 ####[facility] Nqdlodffzu7[address] [place] [address]Dr. Nahed Yañez Sil Parapsilosis Not detected Normal NOT DETECTED [facility] Comment on above: Performed By: #### B CID2 ####[facility] Lidllhcwgw057[address] [place], [place] [address]Dr. Nahed Yañez Sil Tropicalis Not detected Normal NOT DETECTED [facility] Comment on above: Performed By: #### B CID2 ####[facility] Rsndukdcro745[address] [place], [place] [address]Dr. Nahed Yañez CTX-M Resistant Gene Not Applicable Normal NOT DETECTE D [facility] Comment on above: Performed By: #### B CID2 ####[facility] Nhllzceqhr[address] [place], [place] [address]Dr. Nahed Otilio E. Cloacae complex Not detected Normal NOT DETECTED [facility] Comment on above: Performed By: #### B CID2 ####[facility] Dmjqonyctr995[address] [place], [place] [address]Dr. Nahed Yañez E. faecalis Not detected Normal NOT DETECTED [facility] Comment on above: Performed By: #### B CID2 ####[facility] Zxmvjfihba157[address] [place], [place] [address]Dr. Nahed Yañez E. faecium Not detected Normal NOT DETECTED [facility] Comment on above: Performed By: #### B CID2 ####[facility] Eycmgaiifb187[address] [place], [place] [address]Dr. Nahed Yañez Enterobacteriaceae Not detected Normal NOT DETECTED [facility] Comment on above: Performed By: #### B CID2 ####[facility] Fqcwljexan656[address] [place], [place] [address]Dr. Nahed Yañez Escherichia coli Not detected Normal NOT DETECTED [facility] Comment on above: Performed By: #### B CID2 ####[facility] Zrlgpdkfho439[address] [place], [place] [address]Dr. Nahed Yañez H. influenzae Not detected Normal NOT DETECTED [facility] Comment on above: Performed By: #### B CID2 ####[facility] Ifkpzutaas9[address] [place], [place] [address]Dr. Nahed Yañez IMP Resistant Gene Not Applicable Normal NOT DETECTED [facility] Comment on above: Performed By: #### B CID2 ####[facility] Ytcgzihpma820[address] [place], [place] [address]Dr. Nahed Yañez K. oxytoca Not detected Normal NOT DETECTED [facility] Comment on above: Performed By: #### B CID2 ####[facility] Exmedjgeaj167[address] [place], [place] [address]Dr. Nahed Yañez K. pneumoniae Not detected Normal NOT DETECTED [facility] Comment on above: Performed By: #### B CID2 ####[facility] Ttgagliorm935[address] [place], [place] [address]Dr. Nahed Yañez Klebsiella aerogenes Not detected Normal NOT DETECTED [facility] Comment on above: Performed By: #### B CID2 ####[facility] Uzidmauioz5[address] [place] [address]Dr. Nahed Yañez KPC Resistant Gene Not detected Normal NOT DETECTED [facility] Comment on above: Performed By: #### B CID2 ####[facility] Jxphpwmhbw764[address] [place], [place] [address]Dr. Nahed Yañez List. monocytogenes Not detected Normal NOT DETECTED [facility] Comment on above: Performed By: #### B CID2 ####[facility] Hhmxlwrcbs5501[address] [place], [place] [address]Dr. Nahed Yañez Mcr-1 Resistant Gene Not Applicable Normal NOT DETECTE D [facility] Comment on above: Performed By: #### B CID2 ####[facility] Ovnfsajrjc008[address] [place], [place] [address]Dr. Nahed Yañez mecA/C Not Applicable Normal NOT DETECTED [facility] Comment on above: Performed By: #### B CID2 ####[facility] Isyntuvhww856[address] [place], [place] [address]Dr. Nahed Yañez mecA/C MREJ Not Applicable Normal NOT DETECTED [facility] Comment on above: Performed By: #### B CID2 ####[facility] Vzuhdmbhgg6469[address] [place], [place] [address]Dr. Nahed Yañez N. meningitidis Not detected Normal NOT DETECTED [facility] Comment on above: Performed By: #### B CID2 ####[facility] Bxkwxvvlab245[address] [place], [place] [address]Dr. Nahed Yañez NDM Resistant Gene Not Applicable Normal NOT DETECTED [facility] Comment on above: Performed By: #### B CID2 ####[facility] Peqlxxasfm439[address] [place], [place] [address]Dr. Nahed Yañez Oxa-48-like Not Applicable Normal NOT DETECTED [facility] Comment on above: Performed By: #### B CID2 ####[facility] Tswaqdzrux38[address] [place] [address]Dr. Nahed Yañez Proteus Not detected Normal NOT DETECTED [facility] Comment on above: Performed By: #### B CID2 ####[facility] Upwdujxxqa97[address] [place] [address]Dr. Nahed Yañez Pseud. aeruginosa Not detected Normal NOT DETECTED [facility] Comment on above: Performed By: #### B CID2 ####[facility] Htsytzbhqt[address] [place], [place] [address]Dr. Nahed Yañez S. maltophilia Not detected Normal NOT DETECTED [facility] Comment on above: Performed By: #### B CID2 ####[facility] Yxgyoptory178[address] [place], [place] [address]Dr. Nahed Yañez Salmonella Not detected Normal NOT DETECTED [facility] Comment on above: Performed By: #### B CID2 ####[facility] Zvzvsnzoho[address] [place], [place] [address]Dr. Nahed Yañez Seratia marcescens Not detected Normal NOT DETECTED [facility] Comment on above: Performed By: #### B CID2 ####[facility] Bbdgvqrrol789[address] [place], [place] [address]Dr. Nahed Yañez Site: R AC Normal [facility] Comment on above: Performed By: #### B CID2 ####[facility] Zupsgqpwzd850[address] [place], [place] [address]Dr. Nahed Yañez Staph. aureus Not detected Normal NOT DETECTED [facility] Comment on above: Performed By: #### B CID2 ####[facility] Auxvkcptkp194[address] [place], [place] [address]Dr. Nahed Yañez Staph. epidermidis Not detected Normal NOT DETECTED [facility] Comment on above: Performed By: #### B CID2 ####[facility] Uixccactqh200[address] [place], [place] [address]Dr. Nahed Yañez Staph. lugdunensis Not detected Normal NOT DETECTED [facility] Comment on above: Performed By: #### B CID2 ####[facility] Elztoecpww[address] [place], [place] [address]Dr. Nahed Yañez Staphylococcus Detected Critically abnormal NOT DETECTED [facility] Comment on above: Performed By: #### B CID2 ####[facility] Kewcclnfux85[address] [place], [place] [address]Dr. Nahed Yañez Strep. agalactiae Not detected Normal NOT DETECTED [facility] Comment on above: Performed By: #### B CID2 ####[facility] Ntfperwjdo18360[address] [place], [place] [address]Dr. Nahed Yañez Strep. pneumoniae Not detected Normal NOT DETECTED [facility] Comment on above: Performed By: #### B CID2 ####[facility] Busfzgxcxm89220[address] [place], [place] [address]Dr. aNhed Yañez Strep. pyogenes Not detected Normal NOT DETECTED [facility] Comment on above: Performed By: #### B CID2 ####[facility] Zzepnnwzzf8416[address] [place], [place] [address]Dr. Nahed Yañez Streptococcus Not detected Normal NOT DETECTED [facility] Comment on above: Performed By: #### B CID2 ####[facility] Azqlwmkcvx310[address] [place], [place] [address]Dr. Nahed Yañez Tucekr/B Resist. Gene Not detected Normal NOT DETECTED [facility] Comment on above: Performed By: #### B CID2 ####[facility] Zjbqdxqpsm448[address] [place], [place] [address]Dr. Nahed Yañez VIM Resistant Gene Not Applicable Normal NOT DETECTED [facility] Comment on above: Performed By: #### B CID2 ####[facility] Shaeqethzu[address] [place], [place] [address]Dr. Nahed Yañez CARDIAC FRANCISCO 3-6on 3 CK [Catalytic activity/Vol] 25 U/L Critically low 26-192 [facility] Comment on above: Performed By: #### C MREP ####[facility] Fwtthdyavb644[address] [place], [place] [address]Dr. Nahed Yañez CK.MB [Mass/Vol] ng/mL Normal <=3.60 [facility] Comment on above: Performed By: #### C MREP ####[facility] Qwdxgcfcqi[address] [place] [id number]. Nahed Yañez HSTROP 35.8 pg/mL Normal 4.0-51.3 [facility] Comment on above: Result Comment: CUT- OFF POINTS HAVE BEEN ESTABLISHED BASED ON THE FOURTH UNIVERSAL DEFINITIONS OF MYOCARDIALINFARCTION. THE UPPER REFERENCE LIMIT (URL) OF TROPONIN, DEFINED THE 99TH PERCENTILE OFcTnI DISTRIBUTION IN A REFERENCE POPULATION, HAS BEEN CONFIRMED THE DECISION THRESHOLDFOR AL DIAGNOSIS. Performed By: #### C MREP ####[facility] [address] [place] [address]Dr. Nahed Otilio CK [Catalytic activity/Vol] 28 U/L Normal 26-192 [facility] Comment on above: Performed By: #### C MREP ####[facility] Mkweyyzuwk[address] [place], [place] [address]Dr. Rosemarieashley Yañez CK.MB [Mass/Vol] ng/mL Normal <=3.60 [facility] Comment on above: Performed By: #### C MREP ####[facility] Dbwdvfrzhe655[address] [place], [place] [address]Dr. Nahed Otilio HSTROP 36.8 pg/mL Normal 4.0-51.3 [facility] Comment on above: Result Comment: CUT- OFF POINTS HAVE BEEN ESTABLISHED BASED ON THE FOURTH UNIVERSAL DEFINITIONS OF MYOCARDIALINFARCTION. THE UPPER REFERENCE LIMIT (URL) OF TROPONIN, DEFINED THE 99TH PERCENTILE OFcTnI DISTRIBUTION IN A REFERENCE POPULATION, HAS BEEN CONFIRMED THE DECISION THRESHOLDFOR AL DIAGNOSIS. Performed By: #### C MREP ####[facility] Kkazylvxpi69[address] [place], [place] [address]Dr. Rosemarieashley Otilio CBC AUTO DIFFon 07-30-2022 BASO # 0.0 103/ul Normal 0.0-0.1 [facility] Comment on above: Performed By: #### C BC ####[facility] Dbnybthbbx0672 [place] [id number]. Nahed Yañez Basophils/100 WBC (Bld) 0.1 % Critically low 0.2-2.0 [facility] Comment on above: Performed By: #### C BC ####[facility] Zfcgyppela6840 [place] [id number]. Nahed Yañez EO # 0.0 103/ul Normal 0.0-0.7 [facility] Comment on above: Performed By: #### C BC ####[facility] Lfnnkoxjfv0856 [place] [id number]. Nahed Yañez Eosinophils/100 WBC (Bld) 0.0 % Critically low 0.9-7.0 [facility] Comment on above: Performed By: #### C BC ####[facility] Rffsvlsznn13[address] [place] [address]Dr. Nahed Yañez Erythrocyte distribution width (RBC) [Ratio] 14.4 % Normal 11.0-15.0 [facility] Comment on above: Performed By: #### C BC ####[facility] Unfdvyzslp[address] [place], [place] [address]Dr. Nahed Yañez Hematocrit (Bld) [Volume fraction] 37.7 % Normal 36.0-48.0 [facility] Comment on above: Performed By: #### C BC ####[facility] Ofpcqwuzym[address] [place], [place] [address]Dr. Nahed Yañez Hemoglobin (Bld) [Mass/Vol] 12.1 g/dL Normal 12.0-16.0 [facility] Comment on above: Performed By: #### C BC ####[facility] Qiwvdojiil49[address] [place], [place] [address]Dr. Nahed Yañez IG # 0.07 10e3/ul Critically high 0.00-0.03 [facility] Comment on above: Performed By: #### C BC ####[facility] Ohssdzsjpz[address] [place], [place] [address]Dr. Nahed Yañez IG % 0.5 % Normal 0.0-0.5 [facility] Comment on above: Performed By: #### C BC ####[facility] Gcfygboxej0718[address] [place], [place] [address]Dr. Rosemarieashley Yañez LYMPH # 1.0 103/ul Critically low 1.2-3.8 [facility] Comment on above: Performed By: #### C BC ####[facility] Dsisozyxav0506 [place] [id number]. Nahed Yañez Lymphocytes/100 WBC (Bld) 7.6 % Critically low 20.5-60.0 [facility] Comment on above: Performed By: #### C BC ####[facility] Twibwdvrzs27[address] [place] [id number]. Nahed Yañez MANUAL DIFF REQ NO Normal [facility] Comment on above: Performed By: #### C BC ####[facility] Slankwkots4097 [place] [phone]. Nahed Yañez MCH (RBC) [Entitic mass] 28.8 pg Normal 26.7-34.0 [facility] Comment on above: Performed By: #### C BC ####[facility] Fwayzeazqb9[address] [place] [address]Dr. Nahed Yañez MCHC (RBC) [Mass/Vol] 32.1 g/dL Normal 29.9-35.2 [facility] Comment on above: Performed By: #### C BC ####[facility] Dpgfyeklcn8548 [place] [phone]. Nahed Yañez MCV (RBC) [Entitic vol] 89.8 fL Normal 81.0-99.0 [facility] Comment on above: Performed By: #### C BC ####[facility] Yimdyhushl8135 [place] [id number]. Nahed Yañez MONO # 0.2 103/ul Critically low 0.3-0.8 [facility] Comment on above: Performed By: #### C BC ####[facility] Tvwpjougis1261 [place] [phone]. Nahed Yañez Monocytes/100 WBC (Bld) 1.5 % Critically low 1.7-12.0 [facility] Comment on above: Performed By: #### C BC ####[facility] Zerfuzsuhw0153 [place] [phone]. Nahed Yañez NEUT # 11.7 103/ul Critically high 1.4-6.5 [facility] Comment on above: Performed By: #### C BC ####[facility] Dtikibnipj4027 [place] [phone]. Nahed Yañez Neutrophils/100 WBC (Bld) 90.3 % Critically high 43.0-75.0 [facility] Comment on above: Performed By: #### C BC ####[facility] Ewzkgxmqiy5087 [place] [phone]. Nahed Yañez Platelet mean volume (Bld) [Entitic vol] 9.9 fL Normal 9.5-13.5 [facility] Comment on above: Performed By: #### C BC ####[facility] Ybvluootbl3990 [place] [phone]. Nahed Yañez PLT 319 103/ul Normal 150-450 [facility] Comment on above: Performed By: #### C BC ####[facility] Yxdcfbclqd[address] [place], [place] [address]Dr. Nahed Yañez RBC 4.20 106/ul Normal 4.20-5.40 [facility] Comment on above: Performed By: #### C BC ####[facility] Lrkwsbnplk5217 [place] [phone]. Nahed Yañez WBC 13.0 103/ul Critically high 4.0-11.0 [facility] Comment on above: Performed By: #### C BC ####[facility] Bbfhwptmna84[address] [place] [phone]. Nahed Yañez CULTURE BLOODon 07-30-2022 Microscopic examination of blood, culture Culture Observations: NO GROWTH AT 5 DAYS. Normal [facility] Comment on above: Performed By: #### B LDCX1 ####[facility] Kzyijjqshn[address] [place], [place] [address]Dr. Nahed Yañez CULTURE SPUTUMon 07-30-2022 CULTURE SPUTUM Culture Observations : NORMAL RESPIRATORY MIGUEL. Normal [facility] Comment on above: Performed By: #### S PUTCX ####[facility] Xkdxhzeogq[address] [place], [place] [address]Dr. Nahed Yañez CULTURE URINEon 07-30-2022 CULTURE URINE Culture Observations : MODERATE GROWTH OF MIXED GENITAL MIGUEL. NO POTENTIAL PATHOGENS SEEN. Normal [facility] Comment on above: Performed By: #### U RCX ####[facility] Hdgkcxdvlc[address] [place], [place] [address]Dr. Nahed Otilio Covid-19 PCR (CVDTB)on 07-12 SARS-CoV-2 (COVID-19) RNA MIRNA+probe Ql (Unsp spec) Not detected Normal NOT DETECTED [facility] Comment on above: Result Comment: When diagnostic [...] for this test is supported by the [place] [employer] and Human Service's declaration that [...] be used). Performed By: #### C VDTB ####[facility] Prqokqknbi258[address] [place], [place] [address]Dr. Rosemarieashley Yañez ER URINE PROFILEon 3 Bilirubin Ql (U) Negative Normal NEGATIVE [facility] Comment on above: Performed By: #### YARELIS DOVE ####[facility] Auhwghklqr724[address] [place], [place] [address]Dr. Nahed Yañez Clarity (U) CLEAR Normal CLEAR [facility] Comment on above: Performed By: #### YARELIS DOVE ####[facility] Izdmbnsoye406[address] [place], [place] [address]Dr. Nahed Yañez Color (U) LT. YELLOW Normal YELLOW [facility] Comment on above: Performed By: #### YARELIS DOVE ####[facility] Tsqezxsnaf3[address] [place] [address]Dr. Nahed AGEED A micrscopic examination will be performed if indicated. Normal [facility] Comment on above: Performed By: #### YARELIS DOVE ####[facility] Edgweovnbx6037 [place] [address]Dr. Nahed Yañez Glucose Ql (U) 500 mg/dl Abnormal NEGATIVE [facility] Comment on above: Performed By: #### YARELIS DOVE ####[facility] Nlbttgrazw6804 [place] [address]Dr. Nahed Yañez Hemoglobin Ql (U) Negative Normal NEGATIVE [facility] Comment on above: Performed By: #### YARELIS DOVE ####[facility] Jassuzorhz007[address] [place], [place] [address]Dr. Nahed Yañez Ketones Ql (U) Negative Normal NEGATIVE [facility] Comment on above: Performed By: #### YARELIS DOVE ####[facility] Iapnwylwmh88[address] [place], [place] [address]Dr. Nahed Yañez LEUKOCYTES TRACE Abnormal NEGATIVE [facility] Comment on above: Performed By: #### YARELIS DOVE ####[facility] Ewwntgvaxk[address] [place], [place] [address]Dr. Nahed Yañez Nitrite Ql (U) Negative Normal NEGATIVE [facility] Comment on above: Performed By: #### YARELIS DOVE ####[facility] Nggwmoundr[address] [place], [place] [address]Dr. Nahed Yañez pH (U) 6.0 [pH] Normal 5-9 [facility] Comment on above: Performed By: #### YARELIS DOVE ####[facility] Nopuqjkjsn[address] [place], [place] [address]Dr. Nahed Yañez SPEC GRAVITY >=1.030 Abnormal 1.005-<=1.02 5 [facility] Comment on above: Performed By: #### YARELIS DOVE ####[facility] Cgskutdwps[address] [place], [place] [address]Dr. Nahed Yañez UA PROTEIN Negative Normal NEGATIVE/ TRACE [facility] Comment on above: Performed By: #### YARELIS DOVE ####[facility] Ayuaxzhnkq[address] [place], [place] [address]Dr. Nahed Yañez UR MICRO IND INDICATED Normal [facility] Comment on above: Performed By: #### YARELIS DOVE ####[facility] Eiofkabcbo[address] [place], [place] [address]Dr. Nahed Yañez Urobilinogen Qn (U) 0.2 {Alem'U}/dL Normal 0.2 - 1. 0 [facility] Comment on above: Performed By: #### YARELIS DOVE ####[facility] Iprvmhmlpb[address] [place], [place] [address]Dr. Nahed Yañez INFLUENZA A AND B AGon 07-30 INFLUANEGH SEE BELOW Normal [facility] Comment on above: Result Comment: Nega tive for Flu A protein angiten. Infection due to Flu A cannot be ruled out. Flu A angiten in the sample may be below the detection limit of the test. Performed By: #### I NFLUAB ####[facility] Ekdfcqwahx[address] [place], [place] [address]Dr. Nahed Yañez INFLUBNEGH SEE BELOW Normal [facility] Comment on above: Result Comment: Nega tive for Flu B protein antigen. Infection due to Flu B cannot be ruled out. Flu B antigen in the sample may be below the detection limit of the test. Performed By: #### I NFLUAB ####[facility] Fonukngsva67[address] [place], [place] [address]Dr. Rosemarieashley Yañez INFLUENZA A AG Negative Normal NEGATIVE SEE COMMENT [facility] Comment on above: Performed By: #### I NFLUAB ####[facility] Gxbjacsbtm[address] [place], [place] [address]Dr. Nahed Yañez INFLUENZA B AG Negative Normal NEGATIVE SEE COMMENT [facility] Comment on above: Performed By: #### I NFLUAB ####[facility] Wzuczdgpgb[address] [place], [place] [address]Dr. Nahed Yañez LACTATE/LACTIC ACIDon 2022 Lactate [Moles/Vol] 2.5 mmol/L Critically high 0.4-2.0 [facility] Comment on above: Performed By: #### L ACT ####[facility] [address] [place] [address]Dr. Nahed Yañez Lactate [Moles/Vol] 3.3 mmol/L Critically high 0.4-2.0 [facility] Comment on above: Performed By: #### L ACT ####[facility] Covdeefiqu[address] [place], [place] [address]Dr. Nahed Yañez Lactate [Moles/Vol] 2.7 mmol/L Critically high 0.4-2.0 [facility] Comment on above: Performed By: #### L ACT ####[facility] Celftuozjj[address] [place], [place] [address]Dr. Nahed Yañez Lactate [Moles/Vol] 2.8 mmol/L Critically high 0.4-2.0 [facility] Comment on above: Performed By: #### L ACT ####[facility] Vfftgidtic[address] [place], [place] [address]Dr. Nahed Otilio MAGNESIUMon 07-30-2022 Magnesium [Mass/Vol] 1.9 mg/dL Normal 1.8-2.4 [facility] Comment on above: Performed By: #### M G, CMP ####[facility] Yzzscrsmrj[address] [place], [place] [address]Dr. Nahed Yañez POINT OF CARE GLUCOSEon 07-12 Glucose [Mass/Vol] 220 mg/dL Critically high 74-106 [facility] Comment on above: Performed By: #### P OCGLUC ####[facility] Ltmflbdshv[address] [place], [place] [address]Dr. Rosemarieashley Yañez Glucose [Mass/Vol] 162 mg/dL Critically high 74-106 [facility] Comment on above: Result Comment: Kaycee deonte Meter Performed By: #### P OCGLUC ####[facility] Nqrxvsztyt[address] [place], [place] [address]Dr. Nahed Yañez PROF 14(COMP METB)on 03-19-2 023 Albumin [Mass/Vol] 2.9 g/dL Critically low 3.4-5.0 [facility] Comment on above: Performed By: #### Pablo Moore, CMP ####[facility] [address] [place] [address]Dr. Nahed Yañez Albumin/Globulin [Mass ratio] 0.8 {ratio} Normal [facility] Comment on above: Performed By: #### Pablo Moore, CMP ####[facility] Lf[address]mr[address] [place] [address]Dr. Nahed Yañez ALP [Catalytic activity/Vol] 94 U/L Normal 46-116 [facility] Comment on above: Performed By: #### Pablo Moore, CMP ####[facility] Bizasvktgq[address] [place], [place] [address]Dr. Nahed Yañez ALT [Catalytic activity/Vol] 22 U/L Normal 14-59 [facility] Comment on above: Performed By: #### Pablo Moore, CMP ####[facility] [address]eykyocxt[address] [place] [address]Dr. Nahed Yañez Anion gap [Moles/Vol] 12.4 mmol/L Normal [facility] Comment on above: Performed By: #### Pablo Moore, CMP ####[facility] Fvsldsqlfk94[address] [place], [place] [address]Dr. Nahed Yañez AST [Catalytic activity/Vol] 18 U/L Normal 15-37 [facility] Comment on above: Performed By: #### Pablo Moore, CMP ####[facility] Yrwrxlelmt[address] [place] [address]Dr. Nahed Yañez Bilirubin [Mass/Vol] 0.1 mg/dL Critically low 0.2-1.0 [facility] Comment on above: Performed By: #### Pablo Moore, CMP ####[facility] Iktfwztkxx[address] [place], [place] [address]Dr. Nahed Yañez Calcium [Mass/Vol] 8.9 mg/dL Normal 8.5-10.1 [facility] Comment on above: Performed By: #### Pablo Moore, CMP ####[facility] Xirvspcmke2524[address] [place], [place] [address]Dr. Nahed Yañez Chloride [Moles/Vol] 99 mmol/L Normal 98-107 [facility] Comment on above: Performed By: #### Pablo Moore, CMP ####[facility] Nrxuperyyd343[address] [place], [place] [address]Dr. Nahed Yañez CO2 [Moles/Vol] 26.0 mmol/L Normal 21.0-32.0 [facility] Comment on above: Performed By: #### Pablo Moore, CMP ####[facility] Karfupqzrj[address] [place], [place] [address]Dr. Nahed Otilio Creatinine [Mass/Vol] 1.16 mg/dL Critically high 0.55-1.02 [facility] Comment on above: Performed By: #### Pablo Moore, CMP ####[facility] Iuknmmfgsu[address] [place], [place] [address]Dr. Nahed Otilio EGFR-AF KUWAITI 58 mL/min/1.73m2 Critically low >=60 [facility] Comment on above: Performed By: #### Pablo Moore, CMP ####[facility] Wqdxzhtubr[address] [place], [place] [address]Dr. Nahed Otilio EGFR-NON AF KU[place]I 47 mL/min/1.73m2 Critically low >=60 [facility] Comment on above: Performed By: #### Pablo Moore, CMP ####[facility] Qfiochbsel74[address] [place], [place] [address]Dr. Rosemarieashley Yañez Globulin (S) [Mass/Vol] 3.7 g/dL Normal [facility] Comment on above: Performed By: #### Pablo Moore, CMP ####[facility] Tlbgjglftc[address] [place], [place] [address]Dr. Rosemarieashley Otilio Glucose [Mass/Vol] 267 mg/dL Critically high 74-106 [facility] Comment on above: Performed By: #### Pablo Moore, CMP ####[facility] Lknbwzqwls[address] [place], [place] [address]Dr. Nahed Yañez Potassium [Moles/Vol] 4.4 mmol/L Normal 3.5-5.1 [facility] Comment on above: Performed By: #### Pablo Moore, CMP ####[facility] Bueqcoirvu[address] [place], [place] [address]Dr. Rosemarieashley Yañez Protein [Mass/Vol] 6.6 g/dL Normal 6.4-8.2 [facility] Comment on above: Performed By: #### M Teresa, CMP ####[facility] Udzwujbrdw[address]19[address] [place], [place] [address]Dr. Nahed Yañez Sodium [Moles/Vol] 133 mmol/L Critically low 136-145 [facility] Comment on above: Performed By: #### M Teresa, CMP ####[facility] Xhiehhseoe125[address] [place], [place] [address]Dr. Nahed Yañez Urea nitrogen [Mass/Vol] 33.0 mg/dL Critically high 7.0-18.0 [facility] Comment on above: Performed By: #### Pablo Moore, CMP ####[facility] Lhgpofaaof[address] [place], [place] [address]Dr. Nahed Yañez Urea nitrogen/Creatinine [Mass ratio] 28.4 mg/mg Normal [facility] Comment on above: Performed By: #### Pablo Moore, CMP ####[facility] Lfngtwyvjs[address] [place], [place] [address]Dr. Nahed Yañez SPUTUM GRAM STAINon 07-31-19 COMMENTS Normal [facility] Comment on above: Performed By: #### S PUTGS ####[facility] Xcvzbcpgja[address] [place], [place] [address]Dr. Nahed Yañez DIPHTHEROIDS Normal [facility] Comment on above: Performed By: #### S PUTGS ####[facility] Gfrhzvupto[address] [place], [place] [address]Dr. Nahed Yañez EPITHELIALS <25 Normal [facility] Comment on above: Performed By: #### S PUTGS ####[facility] Pfzinonwuh[address] [place], [place] [address]Dr. Nahed Yañez FUNGAL ELEMENTS Normal [facility] Comment on above: Performed By: #### S PUTGS ####[facility] Aeyjkwnley[address] [place], [place] [address]Dr. Nahed Yañez GRAM NEG BACILLI Normal [facility] Comment on above: Performed By: #### S PUTGS ####[facility] [address]xftzrf[address] [place] [address]Dr. Nahed Yañez GRAM NEG DIPPLOCOCCI Normal [facility] Comment on above: Performed By: #### S PUTGS ####[facility] [address]lxxsgq[address] [place] [address]Dr. Nahed Yañez GRAM POS BACILLI FEW Normal [facility] Comment on above: Performed By: #### S PUTGS ####[facility] T[address]df[address] [place] [address]Dr. Nahed Yañez GRAM POSITIVE COCCI FEW Normal [facility] Comment on above: Performed By: #### S PUTGS ####[facility] Dlvashhxdh[address] [place], [place] [address]Dr. Nahed Yañez WBC (Bld) [#/Vol] 10*3/uL Normal [facility] Comment on above: Performed By: #### S PUTGS ####[facility] Bnertpynvi[address] [place], [place] [address]Dr. Nahed Yañez URINE MICROSCOPIC ONLYon BACTERIA SMALL Abnormal NONE SEEN [facility] Comment on above: Performed By: #### YARELIS DOVE ####[facility] Vhlnaunzjf[address] [place], [place] [address]Dr. Nahed Yañez Bacteria identified Cx Nom (U) INDICATED Normal [facility] Comment on above: Performed By: #### YARELSI DOVE ####[facility] Vpetbcummt[address] [place], [place] [address]Dr. Nahed Yañez CAST NONE SEEN Normal NONE SEEN [facility] Comment on above: Performed By: #### NUNU DOVERO ####[facility] Vyaebmsjda9[address] [place], [place] [address]Dr. Nahed Yañez Crystals LM Nom (Urine sed) NONE SEEN Normal NONE SEEN [facility] Comment on above: Performed By: #### NUNU DOVERO ####[facility] [address]xf[address] [place] [address]Dr. Nahed Yañez Epithelial cells LM Ql (Urine sed) FEW Abnormal NONE SEEN /RARE [facility] Comment on above: Performed By: #### Isidoro ALCARAZ UMICRO ####[facility] [address] [place] [address]Dr. Nahed Yañez MUCOUS TRACE Abnormal NONE SEEN [facility] Comment on above: Performed By: #### NUNU DOVERO ####[facility] Upssosuyev[address] [place] [id number]. Nahed Yañez RBC 0-2 Normal 0-2 [facility] Comment on above: Performed By: #### NUNU DOVERO ####[facility] Q[address]nsy[address]fe[address] [place] [address]Dr. Nahed Yañez WBC 0-2 Abnormal NONE SEEN [facility] Comment on above: Performed By: #### NUNU DOVERO ####[facility] [address]rrw[address] [place] [address]Dr. Nahed Yañez XR CHEST 1 Von 07-30-2022 XR CHEST 1 V Normal [facility] CARDIAC FRANCISCO ADMITon 023 CK [Catalytic activity/Vol] 59 U/L Normal 26-192 [facility] Comment on above: Performed By: #### BLADIMIR SINGH ####[facility] Mrhkipgdxs[address] [place], [place] [address]Dr. Nahed Yañez CK.MB [Mass/Vol] 0.59 ng/mL Normal <=3.60 [facility] Comment on above: Performed By: #### BLADIMIR SINGH ####[facility] Fpyqkhmlah[address] [place], [place] [address]Dr. Nahed Otilio HSTROP 40.7 pg/mL Normal 4.0-51.3 [facility] Comment on above: Result Comment: CUT- OFF POINTS HAVE BEEN ESTABLISHED BASED ON THE FOURTH UNIVERSAL DEFINITIONS OF MYOCARDIALINFARCTION. THE UPPER REFERENCE LIMIT (URL) OF TROPONIN, DEFINED THE 99TH PERCENTILE OFcTnI DISTRIBUTION IN A REFERENCE POPULATION, HAS BEEN CONFIRMED THE DECISION THRESHOLDFOR AL DIAGNOSIS. Performed By: #### BLADIMIR SINGH ####[facility] Brultbprvv[address] [place], [place] [address]Dr. Nahed Yañez ANDRE 89 ng/mL Critically high 9-82 [facility] Comment on above: Performed By: #### C MADM, BMP ####[facility] Thtwkzqdtu[address] [place], [place] [address]Dr. Nahed Yañez CBC AUTO DIFFon 07-29-2022 BASO # 0.0 103/ul Normal 0.0-0.1 [facility] Comment on above: Performed By: #### C BC ####[facility] Dxjpkdglgi124[address] [place], [place] [address]Dr. Nahed Yañez Basophils/100 WBC (Bld) 0.1 % Critically low 0.2-2.0 [facility] Comment on above: Performed By: #### C BC ####[facility] Iziyhalahc[address] [place], [place] [address]Dr. Nahed Yañez EO # 0.0 103/ul Normal 0.0-0.7 [facility] Comment on above: Performed By: #### C BC ####[facility] Bvczaxhdyp[address] [place], [place] [address]Dr. Nahed Yañez Eosinophils/100 WBC (Bld) 0.0 % Critically low 0.9-7.0 [facility] Comment on above: Performed By: #### C BC ####[facility] Cbmhvkoxds[address] [place], [place] [address]Dr. Nahed Yañez Erythrocyte distribution width (RBC) [Ratio] 14.5 % Normal 11.0-15.0 [facility] Comment on above: Performed By: #### C BC ####[facility] Nwigbyeexd18[address] [place], [place] [address]Dr. Nahed Yañez Hematocrit (Bld) [Volume fraction] 42.1 % Normal 36.0-48.0 [facility] Comment on above: Performed By: #### C BC ####[facility] Qwqkrqjazg[address] [place], [place] [address]Dr. Nahed Yañez Hemoglobin (Bld) [Mass/Vol] 13.4 g/dL Normal 12.0-16.0 [facility] Comment on above: Performed By: #### C BC ####[facility] [address]ls[address] [place] [id number]. Nahed Otilio IG # 0.07 10e3/ul Critically high 0.00-0.03 [facility] Comment on above: Performed By: #### C BC ####[facility] [address]fgz[address]og[address] [place] [address]Dr. Nahed Yañez IG % 0.5 % Normal 0.0-0.5 [facility] Comment on above: Performed By: #### C BC ####[facility] W[address]rgmof[address] [place] [address]DrShaun Yañez LYMPH # 3.2 103/ul Normal 1.2-3.8 [facility] Comment on above: Performed By: #### C BC ####[facility] Wktubojxke[address] [place], [place] [address]Dr. Nahed Yañez Lymphocytes/100 WBC (Bld) 21.2 % Normal 20.5-60.0 [facility] Comment on above: Performed By: #### C BC ####[facility] Jlhhsqkvsh[address] [place], [place] [address]DrShaun Rosemarieashley Yañez MANUAL DIFF REQ NO Normal [facility] Comment on above: Performed By: #### C BC ####[facility] Dsyt[address]nby[address] [place] [address]DrShaun Nahed Yañez MCH (RBC) [Entitic mass] 28.1 pg Normal 26.7-34.0 [facility] Comment on above: Performed By: #### C BC ####[facility] Xwxtntqumh8[address] [place] [address]DrShaun Nahed Otilio MCHC (RBC) [Mass/Vol] 31.8 g/dL Normal 29.9-35.2 [facility] Comment on above: Performed By: #### C BC ####[facility] N[address]rkmypga12[address] [place] [address]DrShaun Nahed Otilio MCV (RBC) [Entitic vol] 88.3 fL Normal 81.0-99.0 [facility] Comment on above: Performed By: #### C BC ####[facility] Lnnomtbufo[address] [place], [place] [address]Dr. Rosemarieashley Otilio MONO # 1.0 103/ul Critically high 0.3-0.8 [facility] Comment on above: Performed By: #### C BC ####[facility] [address]pbejih[address] [place] [address]Dr. Nahed Yañez Monocytes/100 WBC (Bld) 6.3 % Normal 1.7-12.0 [facility] Comment on above: Performed By: #### C BC ####[facility] Hsxdktumop[address] [place] [address]Dr. Nahed Yañez NEUT # 11.0 103/ul Critically high 1.4-6.5 [facility] Comment on above: Performed By: #### C BC ####[facility] Kawuaisiul[address] [place] [address]Dr. Nahed Yañez Neutrophils/100 WBC (Bld) 71.9 % Normal 43.0-75.0 [facility] Comment on above: Performed By: #### C BC ####[facility] Ivkfapoqfp[address] [place], [place] [address]Dr. Nahed Otilio Platelet mean volume (Bld) [Entitic vol] 9.9 fL Normal 9.5-13.5 [facility] Comment on above: Performed By: #### C BC ####[facility] Y[address]wkhrnjz[address] [place] [address]Dr. Nahed Otilio PLT 385 103/ul Normal 150-450 [facility] Comment on above: Performed By: #### C BC ####[facility] Bjszycxxzb[address] [place], [place] [address]Dr. Nahed Otilio RBC 4.77 106/ul Normal 4.20-5.40 [facility] Comment on above: Performed By: #### C BC ####[facility] Jryshhxzlt6[address] [place] [address]Dr. Nahed Yañez WBC 15.3 103/ul Critically high 4.0-11.0 [facility] Comment on above: Performed By: #### C BC ####[facility] Cbhhikskrb[address] [place] [address]Dr. Nahed Yañez PROF CHEM 8 (BAS METB)on Anion gap [Moles/Vol] 13.4 mmol/L Normal [facility] Comment on above: Performed By: #### Isabell AGRAWAL, BMP ####[facility] Ivismcjdec[address] [place] [address]Dr. Nahed Yañez Calcium [Mass/Vol] 9.5 mg/dL Normal 8.5-10.1 [facility] Comment on above: Performed By: #### Isabell AGRAWAL, BMP ####[facility] [address]usbltgcqc[address] [place] [address]Dr. Nahed Yañez Chloride [Moles/Vol] 101 mmol/L Normal 98-107 [facility] Comment on above: Performed By: #### Isabell AGRAWAL, BMP ####[facility] Zdbvkojegl4[address] [place] [address]Dr. Nahed Yañez CO2 [Moles/Vol] 27.9 mmol/L Normal 21.0-32.0 [facility] Comment on above: Performed By: #### Isabell AGRAWAL, BMP ####[facility] Ywzzwuanjo46[address] [place] [address]Dr. Nahed Yañez Creatinine [Mass/Vol] 0.91 mg/dL Normal 0.55-1.02 [facility] Comment on above: Performed By: #### Isabell AGRAWAL, BMP ####[facility] Enupekyqqc[address] [place] [address]Dr. Nahed Yañez EGFR-AF KUWAITI >60 Normal >=60 [facility] Comment on above: Performed By: #### Isabell AGRAWAL, BMP ####[facility] Pvxud[address]uxud[address] [place] [id number]. Nahed Yañez EGFR-NON AF [place]I >60 Normal >=60 [facility] Comment on above: Performed By: #### Isabell AGRAWAL, BMP ####[facility] Iultvauflb32[address] [place] [address]Dr. Nahed Yañez Glucose [Mass/Vol] 100 mg/dL Normal 74-106 [facility] Comment on above: Performed By: #### Isabell AGRAWAL, BMP ####[facility] Lvkcluobxs7[address] [place] [address]Dr. Nahed Yañez Potassium [Moles/Vol] 4.3 mmol/L Normal 3.5-5.1 [facility] Comment on above: Result Comment: samp le slightly hemolized Performed By: #### C NGHIA, BMP ####[facility] Gtpkxsqgry[address] [place], [place] [address]Dr. Nahed Yañez Sodium [Moles/Vol] 138 mmol/L Normal 136-145 [facility] Comment on above: Performed By: #### C NGHIA, BMP ####[facility] Zbhsqfxqvq367[address] [place], [place] [address]Dr. Nahed Yañez Urea nitrogen [Mass/Vol] 34.0 mg/dL Critically high 7.0-18.0 [facility] Comment on above: Performed By: #### C NGHIA, BMP ####[facility] Mjawfdrglc[address] [place], [place] [address]Dr. Nahed Yañez Urea nitrogen/Creatinine [Mass ratio] 37.4 mg/mg Normal [facility] Comment on above: Performed By: #### C NGHIA, BMP ####[facility] Vmikgrtlgw[address]22[address] [place], [place] [address]Dr. Nahed Yañez BNPon 07-28-2022 Natriuretic peptide B (Bld) [Mass/Vol] 249.0 pg/mL Normal <=900.0 [facility] Comment on above: Performed By: #### B REJOGGER ####[facility] Nhvpccmhgb[address] [place], [place] [address]Dr. Nahed Yañez CBC AUTO DIFFon 07-28-2022 BASO # 0.0 103/ul Normal 0.0-0.1 [facility] Comment on above: Performed By: #### C BC ####[facility] Rnvlbecsfs[address]25[address] [place], [place] [address]Dr. Nahed Yañez Basophils/100 WBC (Bld) 0.1 % Critically low 0.2-2.0 [facility] Comment on above: Performed By: #### C BC ####[facility] Xziwxrykpk8817[address] [place], [place] [address]Dr. Nahed Yañez EO # 0.0 103/ul Normal 0.0-0.7 [facility] Comment on above: Performed By: #### C BC ####[facility] Wnxyocgsri3796 [place] [address]Dr. Nahed Yañez Eosinophils/100 WBC (Bld) 0.0 % Critically low 0.9-7.0 [facility] Comment on above: Performed By: #### C BC ####[facility] Lvgguymnwt[address] [place], [place] [address]Dr. Nahed Yañez Erythrocyte distribution width (RBC) [Ratio] 14.3 % Normal 11.0-15.0 [facility] Comment on above: Performed By: #### C BC ####[facility] Ufkbkroiqa024[address] [place], [place] [address]Dr. Nahed Yañez Hematocrit (Bld) [Volume fraction] 38.7 % Normal 36.0-48.0 [facility] Comment on above: Performed By: #### C BC ####[facility] Bcfdggtshs[address] [place], [place] [address]Dr. Nahed Yañez Hemoglobin (Bld) [Mass/Vol] 12.2 g/dL Normal 12.0-16.0 [facility] Comment on above: Performed By: #### C BC ####[facility] Rzfdtquogs17[address] [place], [place] [address]Dr. Nahed Yañez IG # 0.06 10e3/ul Critically high 0.00-0.03 [facility] Comment on above: Performed By: #### C BC ####[facility] Zqdeyxvxls1699 [place] [address]Dr. Nahed Yañez IG % 0.5 % Normal 0.0-0.5 [facility] Comment on above: Performed By: #### C BC ####[facility] Hdowowpxeg[address] [place], [place] [address]DrShaun Nahed Yañez LYMPH # 0.7 103/ul Critically low 1.2-3.8 [facility] Comment on above: Performed By: #### C BC ####[facility] [address] [place] [address]. Nahed Yañez Lymphocytes/100 WBC (Bld) 5.7 % Critically low 20.5-60.0 [facility] Comment on above: Performed By: #### C BC ####[facility] Mysvnasmgp54[address] [place] [address]Dr. Nahed Yañez MANUAL DIFF REQ NO Normal [facility] Comment on above: Performed By: #### C BC ####[facility] Pjdwfkghll55[address] [place] [address]Dr. Nahed Yañez MCH (RBC) [Entitic mass] 28.2 pg Normal 26.7-34.0 [facility] Comment on above: Performed By: #### C BC ####[facility] Hgtlnmnizn[address] [place], [place] [address]Dr. Nahed Yañez MCHC (RBC) [Mass/Vol] 31.5 g/dL Normal 29.9-35.2 [facility] Comment on above: Performed By: #### C BC ####[facility] Dhcgiswrsl[address] [place], [place] [address]Dr. Nahed Yañez MCV (RBC) [Entitic vol] 89.6 fL Normal 81.0-99.0 [facility] Comment on above: Performed By: #### C BC ####[facility] Vzsgxfsabc[address] [place], [place] [address]Dr. Nahed Yañez MONO # 0.3 103/ul Normal 0.3-0.8 [facility] Comment on above: Performed By: #### C BC ####[facility] Iltnxmbejp10[address] [place], [place] [address]Dr. Nahed Yañez Monocytes/100 WBC (Bld) 2.2 % Normal 1.7-12.0 [facility] Comment on above: Performed By: #### C BC ####[facility] Fvkqmfbchz[address] [place], [place] [address]Dr. Nahed Yañez NEUT # 11.1 103/ul Critically high 1.4-6.5 [facility] Comment on above: Performed By: #### C BC ####[facility] Qvmgohtcof[address] [place], [place] [address]Dr. Nahed Yañez Neutrophils/100 WBC (Bld) 91.5 % Critically high 43.0-75.0 [facility] Comment on above: Performed By: #### C BC ####[facility] Gduwrpybug66[address] [place] [address]Dr. Nahed Yañez Platelet mean volume (Bld) [Entitic vol] 10.1 fL Normal 9.5-13.5 [facility] Comment on above: Performed By: #### C BC ####[facility] Etlrmmxbmf[address] [place] [address]Dr. Nahde Yañez PLT 323 103/ul Normal 150-450 [facility] Comment on above: Performed By: #### C BC ####[facility] Aeivjjlclq7384 [place] [address]Dr. Nahed Yañez RBC 4.32 106/ul Normal 4.20-5.40 [facility] Comment on above: Performed By: #### C BC ####[facility] Qxjkobgfxk[address] [place], [place] [address]Dr. Nahed Yañez WBC 12.1 103/ul Critically high 4.0-11.0 [facility] Comment on above: Performed By: #### C BC ####[facility] Ufxeixtmxw[address] [place], [place] [address]Dr. Nahed Yañez POINT OF CARE GLUCOSEon 07-12 Glucose [Mass/Vol] 308 mg/dL Critically high 74-106 [facility] Comment on above: Performed By: #### P OCGLUC ####[facility] Dzvoinzojv73[address] [place] [address]Dr. Nahed Yañez Glucose [Mass/Vol] 341 mg/dL Critically high 74-106 [facility] Comment on above: Performed By: #### P OCGLUC ####[facility] Uvzwialsue[address] [place], [place] [address]Dr. Nahed Yañez Glucose [Mass/Vol] 320 mg/dL Critically high 74-106 [facility] Comment on above: Performed By: #### P OCGLUC ####[facility] Bmdkjnlfwb[address] [place], [place] [address]Dr. Nahed Yañez PROF 14(COMP METB)on 023 Albumin [Mass/Vol] 3.0 g/dL Critically low 3.4-5.0 [facility] Comment on above: Performed By: #### C MP ####[facility] [address]wl[address] [place] [address]Dr. Nahed Yañez Albumin/Globulin [Mass ratio] 0.7 {ratio} Normal [facility] Comment on above: Performed By: #### C MP ####[facility] Hhczklwyvm1674 [place] [address]Dr. Nahed Yañez ALP [Catalytic activity/Vol] 93 U/L Normal 46-116 [facility] Comment on above: Performed By: #### C MP ####[facility] Fpfofetiws[address] [place], [place] [address]Dr. Nahed Yañez ALT [Catalytic activity/Vol] 15 U/L Normal 14-59 [facility] Comment on above: Performed By: #### C MP ####[facility] Rtzwklijwl[address] [place], [place] [address]Dr. Nahed Yañez Anion gap [Moles/Vol] 13.0 mmol/L Normal [facility] Comment on above: Performed By: #### C MP ####[facility] Bcmoghdldu[address] [place], [place] [address]Dr. Nahed Yañez AST [Catalytic activity/Vol] 11 U/L Critically low 15-37 [facility] Comment on above: Performed By: #### C MP ####[facility] Zcgtrbbyva[address] [place], [place] [address]Dr. Nahed Yañez Bilirubin [Mass/Vol] 0.2 mg/dL Normal 0.2-1.0 [facility] Comment on above: Performed By: #### C MP ####[facility] Otqdjafeyk[address] [place], [place] [address]Dr. Nahed Yañez Calcium [Mass/Vol] 9.6 mg/dL Normal 8.5-10.1 [facility] Comment on above: Performed By: #### C MP ####[facility] Iwgenhzbrk13[address] [place] [address]Dr. Nahed Yañez Chloride [Moles/Vol] 100 mmol/L Normal 98-107 [facility] Comment on above: Performed By: #### C MP ####[facility] Suvpkemezb[address] [place] [address]Dr. Nahed Yañez CO2 [Moles/Vol] 27.3 mmol/L Normal 21.0-32.0 [facility] Comment on above: Performed By: #### C MP ####[facility] Jidjaeohxm30[address] [place] [address]Dr. Nahed Yañez Creatinine [Mass/Vol] 1.19 mg/dL Critically high 0.55-1.02 [facility] Comment on above: Performed By: #### C MP ####[facility] Ymoxabpgjn[address] [place], [place] [address]Dr. Nahed Yañez EGFR-AF KUWAITI 56 mL/min/1.73m2 Critically low >=60 [facility] Comment on above: Performed By: #### C MP ####[facility] Yrrhizjklo[address] [place], [place] [address]Dr. Nahed Yañez EGFR-NON AF [place]I 46 mL/min/1.73m2 Critically low >=60 [facility] Comment on above: Performed By: #### C MP ####[facility] Hwzwdvrszf[address] [place], [place] [address]Dr. Nahed Otilio Globulin (S) [Mass/Vol] 4.1 g/dL Normal [facility] Comment on above: Performed By: #### C MP ####[facility] Qdilveoyit7596 [place] [address]Dr. Nahed Otilio Glucose [Mass/Vol] 244 mg/dL Critically high 74-106 [facility] Comment on above: Performed By: #### C MP ####[facility] Uzctndxkyx98[address] [place], [place] [address]Dr. Nahed Yañez Potassium [Moles/Vol] 4.3 mmol/L Normal 3.5-5.1 [facility] Comment on above: Performed By: #### C MP ####[facility] Bjhwmsswbh5698 [place] [address]Dr. Nahed Yañez Protein [Mass/Vol] 7.1 g/dL Normal 6.4-8.2 [facility] Comment on above: Performed By: #### C MP ####[facility] Dtvmqaittm170[address] [place], [place] [address]Dr. Nahed Yañez Sodium [Moles/Vol] 136 mmol/L Normal 136-145 [facility] Comment on above: Performed By: #### C MP ####[facility] Fzwshcihlf[address] [place], [place] [address]Dr. Nahed Otilio Urea nitrogen [Mass/Vol] 19.0 mg/dL Critically high 7.0-18.0 [facility] Comment on above: Performed By: #### C MP ####[facility] Ipndwbcklk[address] [place], [place] [address]Dr. Rosemarieashley Yañez Urea nitrogen/Creatinine [Mass ratio] 16.0 mg/mg Normal [facility] Comment on above: Performed By: #### C MP ####[facility] Vclgzzoabn[address] [place], [place] [address]Dr. Nahed Otilio BNPon 07-27-2022 Natriuretic peptide B (Bld) [Mass/Vol] 1093.0 pg/mL Critically high <=900.0 [facility] Comment on above: Performed By: #### B REJOGGER ####[facility] Mazeqvodiz95[address] [place], [place] [address]Dr. Nahed Otilio CBC AUTO DIFFon 07-27-2022 BASO # 0.1 103/ul Normal 0.0-0.1 [facility] Comment on above: Performed By: #### C BC ####[facility] Lvyjmniunq[address] [place], [place] [address]Dr. Rosemarieashley Yañez Basophils/100 WBC (Bld) 0.3 % Normal 0.2-2.0 [facility] Comment on above: Performed By: #### C BC ####[facility] Lissxyniup[address] [place], [place] [address]Dr. Nahed Yañez EO # 0.2 103/ul Normal 0.0-0.7 [facility] Comment on above: Performed By: #### C BC ####[facility] Uichdfysfs[address] [place] [id number]. Nahed Yañez Eosinophils/100 WBC (Bld) 1.2 % Normal 0.9-7.0 [facility] Comment on above: Performed By: #### C BC ####[facility] Uunpudhlue8521 [place] [address]Dr. Nahed Yañez Erythrocyte distribution width (RBC) [Ratio] 14.1 % Normal 11.0-15.0 [facility] Comment on above: Performed By: #### C BC ####[facility] Tqwjcftewe[address] [place], [place] [address]Dr. Nahed Yañez Hematocrit (Bld) [Volume fraction] 42.2 % Normal 36.0-48.0 [facility] Comment on above: Performed By: #### C BC ####[facility] Cqddfuledw9[address] [place], [place] [address]Dr. Nahed Yañez Hemoglobin (Bld) [Mass/Vol] 13.6 g/dL Normal 12.0-16.0 [facility] Comment on above: Performed By: #### C BC ####[facility] Zwercbihpq[address] [place], [place] [address]Dr. Nahed Yañez IG # 0.09 10e3/ul Critically high 0.00-0.03 [facility] Comment on above: Performed By: #### C BC ####[facility] Pgrzydkark[address] [place], [place] [address]Dr. Nahed Yañez IG % 0.5 % Normal 0.0-0.5 [facility] Comment on above: Performed By: #### C BC ####[facility] Nbyfabszyo[address] [place], [place] [address]Dr. Nahed Yañez LYMPH # 1.8 103/ul Normal 1.2-3.8 [facility] Comment on above: Performed By: #### C BC ####[facility] Vpxrthumyi[address] [place], [place] [address]Dr. Nahed Yañez Lymphocytes/100 WBC (Bld) 10.2 % Critically low 20.5-60.0 [facility] Comment on above: Performed By: #### C BC ####[facility] Zhhctzdghv8950 [place] [id number]. Nahed Yañez MANUAL DIFF REQ NO Normal [facility] Comment on above: Performed By: #### C BC ####[facility] Rylwrpdizb3757 [place] [id number]. Nahed Yañez MCH (RBC) [Entitic mass] 28.3 pg Normal 26.7-34.0 [facility] Comment on above: Performed By: #### C BC ####[facility] Rktzeisqvf9370 [place] [address]Dr. Nahed Yañez MCHC (RBC) [Mass/Vol] 32.2 g/dL Normal 29.9-35.2 [facility] Comment on above: Performed By: #### C BC ####[facility] Kgefxlenjt1817[address] [place], [place] [address]Dr. Nahed Yañez MCV (RBC) [Entitic vol] 87.9 fL Normal 81.0-99.0 [facility] Comment on above: Performed By: #### C BC ####[facility] Nfyycfeunh[address] [place], [place] [address]Dr. Nahed Yañez MONO # 0.9 103/ul Critically high 0.3-0.8 [facility] Comment on above: Performed By: #### C BC ####[facility] Lautxkmuja[address] [place], [place] [address]Dr. Nahed Yañez Monocytes/100 WBC (Bld) 5.2 % Normal 1.7-12.0 [facility] Comment on above: Performed By: #### C BC ####[facility] [address]wds[address]cdf[address] [place], [place] [address]DrShaun Yañez NEUT # 14.4 103/ul Critically high 1.4-6.5 [facility] Comment on above: Performed By: #### C BC ####[facility] Wuvgvshkgk[address] [place], [place] [address]Dr. Nahed Yañez Neutrophils/100 WBC (Bld) 82.6 % Critically high 43.0-75.0 [facility] Comment on above: Performed By: #### C BC ####[facility] Bmqybcldpz8711 [place], [place] [address]Kd. Nahed Yañez Platelet mean volume (Bld) [Entitic vol] 10.1 fL Normal 9.5-13.5 [facility] Comment on above: Performed By: #### C BC ####[facility] Iyvdktglwb7312 [place] [id number]. Nahed Yañez PLT 336 103/ul Normal 150-450 [facility] Comment on above: Performed By: #### C BC ####[facility] Hociuxlcfj2440 [place], [place] [address]Cm. Nahed Yañez RBC 4.80 106/ul Normal 4.20-5.40 [facility] Comment on above: Performed By: #### C BC ####[facility] Spsylblsyu6002 [place] [id number]. Nahed Yañez WBC 17.4 103/ul Critically high 4.0-11.0 [facility] Comment on above: Performed By: #### C BC ####[facility] Nftotfifgl0265 [place], [place] [address]Rx. Nahed Yañez CTA CHEST WO W CONon 023 CTA CHEST WO W CON Normal [facility]on [facility]-12 SARS-CoV-2 (COVID-19) RNA MIRAN+probe Ql (Unsp spec) Not detected Normal NOT DETECTED [facility] Comment on above: Result Comment: When diagnostic [...] for this test is supported by the Radio Performer of Health and Human Service's declaration that [...] be used). Performed By: #### C VDTB ####[facility] Cauxifdtie[address] [place], [place] [address]Dr. Nahed Yañez ECHOCARDIO M/2D COMPLETEon 0 07-27-2022 ECHOCARDIO M/2D COMPLETE Normal [facility] ER URINE PROFILEon 3 Bilirubin Ql (U) Negative Normal NEGATIVE [facility] Comment on above: Performed By: #### U MICRO, ERUR ####[facility] Vpukkohvoe[address] [place], [place] [address]Dr. Nahed Yañez Clarity (U) CLEAR Normal CLEAR [facility] Comment on above: Performed By: #### U MICRO, ERUR ####[facility] Ufbwhvcohb[address] [place], [place] [address]Dr. Nahed Yañez Color (U) LT. YELLOW Normal YELLOW [facility] Comment on above: Performed By: #### U MICRO, ERUR ####[facility] Llfmpidqpk[address] [place], [place] [address]Dr. Nahed CORNELLAHD A micrscopic examination will be performed if indicated. Normal [facility] Comment on above: Performed By: #### U MICRO, ERUR ####[facility] Ufcfbgqnfe[address] [place], [place] [address]Dr. Nahed Yañez Glucose Ql (U) >1000 Abnormal NEGATIVE [facility] Comment on above: Performed By: #### U MICRO, ERUR ####[facility] Guslhpurbs[address] [place], [place] [address]Dr. Nahed Yañez Hemoglobin Ql (U) TRACE-LYSED Abnormal NEGATIVE [facility] Comment on above: Performed By: #### U MICRO, ERUR ####[facility] Xaxvqvkwlr[address] [place], [place] [address]Dr. Nahed Yañez Ketones Ql (U) TRACE Abnormal NEGATIVE [facility] Comment on above: Performed By: #### U MICRO, ERUR ####[facility] Vomucmzdfy87[address] [place] [address]Dr. Rosemarieashley Yañez LEUKOCYTES Negative Normal NEGATIVE [facility] Comment on above: Performed By: #### U MICRO, ERUR ####[facility] Qcgbenjmia2923 [place] [address]Dr. Nahed Yañez Nitrite Ql (U) Negative Normal NEGATIVE [facility] Comment on above: Performed By: #### U MICRO, ERUR ####[facility] Vcnhnmipgc0262 [place] [address]Dr. Nahed Yañez pH (U) 7.0 [pH] Normal 5-9 [facility] Comment on above: Performed By: #### U MICRO, ERUR ####[facility] Nbognhheva9094 [place] [address]Dr. Nahed Yañez SPEC GRAVITY 1.020 Normal 1.005-<=1.02 5 [facility] Comment on above: Performed By: #### U MICRO, ERUR ####[facility] Sivxhcpehy[address] [place], [place] [address]Dr. Nahed Yañez UA PROTEIN Negative Normal NEGATIVE/ TRACE [facility] Comment on above: Performed By: #### U MICRO, ERUR ####[facility] Uqggrlklyd[address] [place], [place] [address]Dr. Nahed Yañez UR MICRO IND INDICATED Normal [facility] Comment on above: Performed By: #### U MICRO, ERUR ####[facility] Uxcehxeyuy5547 [place] [address]Dr. Nahed Yañez Urobilinogen Qn (U) 0.2 {Alem'U}/dL Normal 0.2 - 1. 0 [facility] Comment on above: Performed By: #### U MICRO, ERUR ####[facility] Qdazdcotke[address] [place], [place] [address]Dr. Nahed Yañez LIPID PROFILEon 07-27-2022 CHOL-HDL RATIO NORM SEE BELOW Normal [facility] Comment on above: Result Comment: 3.3 - 4.4 LOW RISK 4.4 - 7.1 AVERAGE RISK 7.1 - 11.0 MODERATE RISK >11.0 HIGH RISK Performed By: #### M G, LIPID ####[facility] Zoywrrbwyo7380 [place], [place] [address]Jp. Rosemarieashley Yañez Cholesterol [Mass/Vol] 181 mg/dL Normal <=200 [facility] Comment on above: Performed By: #### M G, LIPID ####[facility] Wpsaozrdza0168 [place], [place] [address]Qv. Nahed Yañez Cholesterol in HDL [Mass/Vol] 87 mg/dL Critically high 40-60 [facility] Comment on above: Performed By: #### Pabol Moore, LIPID ####[facility] Hrjluaouov6391 [place] [id number]. Nahed Yañez Cholesterol in LDL [Mass/Vol] 78.6 mg/dL Normal [facility] Comment on above: Performed By: #### Pablo Moore, LIPID ####[facility] Nkrrpchddb4404 [place] [phone]. Nahed Yañez Cholesterol.total/Chol esterol in HDL [Mass ratio] 2.1 {ratio} Normal [facility] Comment on above: Performed By: #### Pablo Moore, LIPID ####[facility] Dodwmyqfvt2940 [place] [phone]. Nahed Yañez HDL NORMAL > or = 60 mg/dl - LO W CARDIOVASCULAR RISK <40 mg/dl - HIGH CARDIOVASCULAR RISK Normal [facility] Comment on above: Performed By: #### Pablo Moore, LIPID ####[facility] Nytcywtvul5026 [place] [phone]. Nahed Yañez LDL CALC NORMAL SEE BELOW Normal [facility] Comment on above: Result Comment: <100 mg/dl OPTIMAL 100 - 129 mg/dl NEAR OR ABOVE OPTIMAL 130 - 159 mg/dl BORDERLINE HIGH 160 - 189 mg/dl HIGH >190 mg/dl VERY HIGH Performed By: #### Pablo G, LIPID ####[facility] Pqkfumhigj8342 [place] [phone]. Nahed Yañez Triglyceride [Mass/Vol] 77 mg/dL Normal <=150 [facility] Comment on above: Performed By: #### Pablo Moore, LIPID ####[facility] Wmpynthuml2671 [place] [address]Dr. Nahed Yañez VLDL CALC 15.4 mg/dL Normal [facility] Comment on above: Performed By: #### M G, LIPID ####[facility] Zjjauzdhym7104 [place] [address]Dr. Nahed Yañez MAGNESIUMon 07-27-2022 Magnesium [Mass/Vol] 1.7 mg/dL Critically low 1.8-2.4 [facility] Comment on above: Performed By: #### M G, LIPID ####[facility] Zkjrdozqpl[address] [place], [place] [address]Dr. Nahed Yañez POINT OF CARE GLUCOSEon 07-12 Glucose [Mass/Vol] 276 mg/dL Critically high 74-106 [facility] Comment on above: Performed By: #### P OCGLUC ####[facility] Jxubdhfbhz[address] [place], [place] [address]Dr. Nahed Yañez Glucose [Mass/Vol] 143 mg/dL Critically high 74-106 [facility] Comment on above: Performed By: #### P OCGLUC ####[facility] Dcqdvzhhif[address] [place], [place] [address]Dr. Nahed Yañez Glucose [Mass/Vol] 117 mg/dL Critically high 74-106 [facility] Comment on above: Performed By: #### P OCGLUC ####[facility] Gigzbpqxoy2743 [place] [address]Dr. Nahed Yañez PROF CHEM 8 (BAS METB)on Anion gap [Moles/Vol] 11.1 mmol/L Normal [facility] Comment on above: Performed By: #### B MP, HSTROPN ####[facility] Csuugyfapr[address] [place], [place] [address]Dr. Rosemarieashley Yañez Calcium [Mass/Vol] 9.6 mg/dL Normal 8.5-10.1 [facility] Comment on above: Performed By: #### B MP, HSTROPN ####[facility] Hiacmambut[address] [place] [address]Dr. Nahed Yañez Chloride [Moles/Vol] 99 mmol/L Normal 98-107 [facility] Comment on above: Performed By: #### B RENZO, HSTROPN ####[facility] Dcwysayjom7268 [place] [address]Dr. Nahed Yañez CO2 [Moles/Vol] 27.8 mmol/L Normal 21.0-32.0 [facility] Comment on above: Performed By: #### B RENZO, HSTROPN ####[facility] Kffclnbbfk[address] [place], [place] [address]Dr. Nahed Yañez Creatinine [Mass/Vol] 0.90 mg/dL Normal 0.55-1.02 [facility] Comment on above: Performed By: #### B RENZO, HSTROPN ####[facility] Vpupsnkpqj96[address] [place], [place] [address]Dr. Nahed Yañez EGFR-AF [place]I >60 Normal >=60 [facility] Comment on above: Performed By: #### Mery MULLER, HSTROPN ####[facility] Ncdqxklyof[address] [place], [place] [address]Dr. Nahed Yañez EGFR-NON AF [place]I >60 Normal >=60 [facility] Comment on above: Performed By: #### Mery MULLER, HSTROPN ####[facility] Xwdqscedxx39[address] [place], [place] [address]Dr. Nahed Yañez Glucose [Mass/Vol] 133 mg/dL Critically high 74-106 [facility] Comment on above: Performed By: #### Mery MULLER, HSTROPN ####[facility] Eotysybnec[address] [place], [place] [address]Dr. Nahed Yañez Potassium [Moles/Vol] 3.9 mmol/L Normal 3.5-5.1 [facility] Comment on above: Performed By: #### Mery MULLER, HSTROPN ####[facility] Fqclnglrnr[address] [place], [place] [address]Dr. Nahed Yañez Sodium [Moles/Vol] 134 mmol/L Critically low 136-145 [facility] Comment on above: Performed By: #### B RENZO, HSTROPN ####[facility] [address] [place] [address]Hq. Nahed Yañez Urea nitrogen [Mass/Vol] 9.0 mg/dL Normal 7.0-18.0 [facility] Comment on above: Performed By: #### B MP, HSTROPN ####[facility] Aheqmwjzjf1357 [place] [phone]. Nahed Yañez Urea nitrogen/Creatinine [Mass ratio] 10.0 mg/mg Normal [facility] Comment on above: Performed By: #### B MP, HSTROPN ####[facility] Nmzpoobrow0688 [place] [phone]. Nahed Yañez TROPONIN, HIGH SENSITIVITYon 07-27-2022 HSTROP 40.7 pg/mL Normal 4.0-51.3 [facility] Comment on above: Result Comment: CUT- OFF POINTS HAVE BEEN ESTABLISHED BASED ON THE FOURTH UNIVERSAL DEFINITIONS OF MYOCARDIALINFARCTION. THE UPPER REFERENCE LIMIT (URL) OF TROPONIN, DEFINED THE 99TH PERCENTILE OFcTnI DISTRIBUTION IN A REFERENCE POPULATION, HAS BEEN CONFIRMED THE DECISION THRESHOLDFOR AL DIAGNOSIS. Performed By: #### H STROPN ####[facility] Dkhaolxnzs4007 [place] [phone]. Nahed Yaeñz HSTROP 42.5 pg/mL Normal 4.0-51.3 [facility] Comment on above: Result Comment: CUT- OFF POINTS HAVE BEEN ESTABLISHED BASED ON THE FOURTH UNIVERSAL DEFINITIONS OF MYOCARDIALINFARCTION. THE UPPER REFERENCE LIMIT (URL) OF TROPONIN, DEFINED THE 99TH PERCENTILE OFcTnI DISTRIBUTION IN A REFERENCE POPULATION, HAS BEEN CONFIRMED THE DECISION THRESHOLDFOR AL DIAGNOSIS. Performed By: #### H STROPN ####[facility] Jyzwagmezn1359 [place] [phone]. Nahed Yañez HSTROP 50.8 pg/mL Normal 4.0-51.3 [facility] Comment on above: Result Comment: CUT- OFF POINTS HAVE BEEN ESTABLISHED BASED ON THE FOURTH UNIVERSAL DEFINITIONS OF MYOCARDIALINFARCTION. THE UPPER REFERENCE LIMIT (URL) OF TROPONIN, DEFINED THE 99TH PERCENTILE OFcTnI DISTRIBUTION IN A REFERENCE POPULATION, HAS BEEN CONFIRMED THE DECISION THRESHOLDFOR AL DIAGNOSIS. Performed By: #### H STROPN ####[facility] Ngfenewuvg4503 [place] [phone]. Nahed Yañez HSTROP 46.3 pg/mL Normal 4.0-51.3 [facility] Comment on above: Result Comment: CUT- OFF POINTS HAVE BEEN ESTABLISHED BASED ON THE FOURTH UNIVERSAL DEFINITIONS OF MYOCARDIALINFARCTION. THE UPPER REFERENCE LIMIT (URL) OF TROPONIN, DEFINED THE 99TH PERCENTILE OFcTnI DISTRIBUTION IN A REFERENCE POPULATION, HAS BEEN CONFIRMED THE DECISION THRESHOLDFOR AL DIAGNOSIS. Performed By: #### H STROPN, TSH ####[facility] Atxfnqkxso6454 [place] [phone]. Nahed Yañez HSTROP 54.2 pg/mL Critically high 4.0-51.3 [facility] Comment on above: Result Comment: CUT- OFF POINTS HAVE BEEN ESTABLISHED BASED ON THE FOURTH UNIVERSAL DEFINITIONS OF MYOCARDIALINFARCTION. THE UPPER REFERENCE LIMIT (URL) OF TROPONIN, DEFINED THE 99TH PERCENTILE OFcTnI DISTRIBUTION IN A REFERENCE POPULATION, HAS BEEN CONFIRMED THE DECISION THRESHOLDFOR AL DIAGNOSIS. Performed By: #### B MP, HSTROPN ####[facility] Boznjimfcp1805 [place] [phone]. Nahed Yañez TSHon 07-27-2022 TSH 1.566 uIU/mL Normal 0.358-3.740 [facility] Comment on above: Performed By: #### H STROPN, TSH ####[facility] Jeqofqjigv4283 [place] [phone]. Nahed Yañez URINE MICROSCOPIC ONLYon BACTERIA NONE SEEN Normal NONE SEEN [facility] Comment on above: Performed By: #### U MICRO, ERUR ####[facility] Mtgfvoupjr5331 [place] [phone]. Nahed Yañez Bacteria identified Cx Nom (U) NOT INDICATED Normal [facility] Comment on above: Performed By: #### U MICRO, ERUR ####[facility] Ssnbbaqyjv2338 [place] [phone]. Nahed Yañez CAST NONE SEEN Normal NONE SEEN [facility] Comment on above: Performed By: #### U MICRO, ERUR ####[facility] Euyeeguyyc1218 [place] [address]Dr. Nahed Yañez Crystals LM Nom (Urine sed) NONE SEEN Normal NONE SEEN [facility] Comment on above: Performed By: #### U MICRO, ERUR ####[facility] Btinkpvbvk5735 [place] [address]Dr. Nahed Yañez Epithelial cells LM Ql (Urine sed) FEW Abnormal NONE SEEN /RARE [facility] Comment on above: Performed By: #### U MICRO, ERUR ####[facility] Qtvetgyakz[address] [place], [place] [address]Dr. Nahed Yañez MUCOUS NONE SEEN Normal NONE SEEN [facility] Comment on above: Performed By: #### U MICRO, ERUR ####[facility] Jabcqwmlyx[address] [place], [place] [address]Dr. Nahed Yañez RBC 0-2 Normal 0-2 [facility] Comment on above: Performed By: #### U MICRO, ERUR ####[facility] Zisgoympyg[address] [place], [place] [address]Dr. Nahed Yañez WBC NONE SEEN Normal NONE SEEN [facility] Comment on above: Performed By: #### U MICRO, ERUR ####[facility] Vmxougdwdx[address] [place], [place] [address]Dr. Nahed Yañez XR CHEST 1 Von 07-27-2022 XR CHEST 1 V Normal [facility] INSULINon 05-09-2022 Insulin 21.1 uIU/mL Normal 2.6-24.9 [facility] Comment on above: Performed By: #### I NSULIN ####[facility] Dmngdburww[address] [place], [place] [address]Dr. Nahed Yañez BNPon 05-08-2022 Natriuretic peptide B (Bld) [Mass/Vol] 58.0 pg/mL Normal <=900.0 [facility] Comment on above: Performed By: #### B REJOGGER, LIPID, T7, TSH, CMP ####[facility] Lhtvjjojyn99[address] [place] [address]Dr. Nahed Yañez CBC AUTO DIFFon 05-08-2022 BASO # 0.0 103/ul Normal 0.0-0.1 [facility] Comment on above: Performed By: #### C BC ####[facility] Ozlwuazajq0123 [place] [phone]. Nahed Yañez Basophils/100 WBC (Bld) 0.4 % Normal 0.2-2.0 [facility] Comment on above: Performed By: #### C BC ####[facility] Ofeyuodv[address] [place], [place] [address]Dr. Nahed Yañez EO # 0.3 103/ul Normal 0.0-0.7 [facility] Comment on above: Performed By: #### C BC ####[facility] Yieltickil[address] [place], [place] [id number]. Nahed Yañez Eosinophils/100 WBC (Bld) 4.2 % Normal 0.9-7.0 [facility] Comment on above: Performed By: #### C BC ####[facility] Txgqinehyp[address] [place], [place] [address]Dr. Nahed Yañez Erythrocyte distribution width (RBC) [Ratio] 14.0 % Normal 11.0-15.0 [facility] Comment on above: Performed By: #### C BC ####[facility] Xmhotzzvre[address] [place], [place] [address]Dr. Nahed Yañez Hematocrit (Bld) [Volume fraction] 43.8 % Normal 36.0-48.0 [facility] Comment on above: Performed By: #### C BC ####[facility] Waklaaxkdm[address] [place], [place] [address]Dr. Nahed Yañez Hemoglobin (Bld) [Mass/Vol] 13.9 g/dL Normal 12.0-16.0 [facility] Comment on above: Performed By: #### C BC ####[facility] Ergcljuegi[address] [place], [place] [address]Dr. Nahed Yañez IG # 0.01 10e3/ul Normal 0.00-0.03 [facility] Comment on above: Performed By: #### C BC ####[facility] Obvmgnzveo[address] [place], [place] [address]Dr. Nahed Yañez IG % 0.1 % Normal 0.0-0.5 [facility] Comment on above: Performed By: #### C BC ####[facility] Jcnhlvhxzk22[address] [place] [id number]. Nahed Otilio LYMPH # 2.8 103/ul Normal 1.2-3.8 [facility] Comment on above: Performed By: #### C BC ####[facility] Dpcepqbpkg0220 [place] [id number]. Nahed Yañez Lymphocytes/100 WBC (Bld) 37.6 % Normal 20.5-60.0 [facility] Comment on above: Performed By: #### C BC ####[facility] Qjbzfkkvkt4636 [place] [id number]. Nahed Yañez MANUAL DIFF REQ NO Normal [facility] Comment on above: Performed By: #### C BC ####[facility] Ysxqaqoelq5848 [place] [id number]. Nahed Yañez MCH (RBC) [Entitic mass] 28.4 pg Normal 26.7-34.0 [facility] Comment on above: Performed By: #### C BC ####[facility] Svdamhswfj1849 [place] [id number]. Rosemarieashley Yañez MCHC (RBC) [Mass/Vol] 31.7 g/dL Normal 29.9-35.2 [facility] Comment on above: Performed By: #### C BC ####[facility] Cuvoolofdq2492 [place] [id number]. Nahed Yañez MCV (RBC) [Entitic vol] 89.6 fL Normal 81.0-99.0 [facility] Comment on above: Performed By: #### C BC ####[facility] Smhyycqouv8733 [place] [id number]. Nahed Yañez MONO # 0.5 103/ul Normal 0.3-0.8 [facility] Comment on above: Performed By: #### C BC ####[facility] Jaughznnoo4763 [place] [id number]. Nahed Yañez Monocytes/100 WBC (Bld) 6.8 % Normal 1.7-12.0 [facility] Comment on above: Performed By: #### C BC ####[facility] Owxucodngh4415 [place] [id number]. Nahed Yañez NEUT # 3.7 103/ul Normal 1.4-6.5 [facility] Comment on above: Performed By: #### C BC ####[facility] Dbmcwotoxy3316 [place] [id number]. Nahed Yañez Neutrophils/100 WBC (Bld) 50.9 % Normal 43.0-75.0 [facility] Comment on above: Performed By: #### C BC ####[facility] Wcqylnbucz4518 [place] [id number]. Nahed Yañez Platelet mean volume (Bld) [Entitic vol] 9.8 fL Normal 9.5-13.5 [facility] Comment on above: Performed By: #### C BC ####[facility] Ixezsicvts2987 [place] [id number]. Nahed Yañez PLT 306 103/ul Normal 150-450 [facility] Comment on above: Performed By: #### C BC ####[facility] Tgrsizkpys8191 [place] [id number]. Nahed Yañez RBC 4.89 106/ul Normal 4.20-5.40 [facility] Comment on above: Performed By: #### C BC ####[facility] Jjishrmgek6760 [place] [id number]. Nahed Yañez WBC 7.3 103/ul Normal 4.0-11.0 [facility] Comment on above: Performed By: #### C BC ####[facility] Nefuynobvr7622 [place] [id number]. Nahed Yañez FREE THYROXINE INDEX T7on FTI 2.92 Normal 1.30-4.50 [facility] Comment on above: Performed By: #### B REJOGGER, LIPID, T7, TSH, CMP ####[facility] Ikjhcdvlsq9613 [place] [id number]. Nahed Yañez T3U 34.0 % Normal 30.0-39.0 [facility] Comment on above: Performed By: #### B REJOGGER, LIPID, T7, TSH, CMP ####[facility] Wcdmhenhji3794 [place] [address]Dr. Nahed Yañez T4 [Mass/Vol] 8.60 ug/dL Normal 4.80-13.90 [facility] Comment on above: Performed By: #### B REJOGGER, LIPID, T7, TSH, CMP ####[facility] Tyqzgwruyd6769 [place] [address]Dr. Nahed Yañez GLYCOHEMOGLOBIN A1Con 2021 ADA RECOMMENDATION SEE BELOW Normal [facility] Comment on above: Result Comment: ADA RECOMMENDED LIMIT 4.0 - 6.0 ADA THERAPEUTIC TARGET < 7.0 ACTION SUGGESTED > 7.0 Performed By: #### A 1C ####[facility] Flzmhnzttx[address] [place], [place] [address]Dr. Nahed Yañez Glucose [Mass/Vol] 146 mg/dL Normal [facility] Comment on above: Performed By: #### A 1C ####[facility] Dytgknbapd[address] [place], [place] [address]Dr. Nahed Yañez HbA1c (Bld) [Mass fraction] 6.7 % Critically high 4.5-6.2 [facility] Comment on above: Performed By: #### A 1C ####[facility] Yabmnofzcg1715 [place] [address]Dr. Nahed Yañez IRONon 05-08-2022 Iron [Mass/Vol] 76.0 ug/dL Normal 50.0-170.0 [facility] Comment on above: Performed By: #### V ITAD, IRON ####[facility] Pvulcmdvkx9529 [place] [address]Dr. Nahed Yañez LIPID PROFILEon 05-08-2022 CHOL-HDL RATIO NORM SEE BELOW Normal [facility] Comment on above: Result Comment: 3.3 - 4.4 LOW RISK 4.4 - 7.1 AVERAGE RISK 7.1 - 11.0 MODERATE RISK >11.0 HIGH RISK Performed By: #### B REJOGGER, LIPID, T7, TSH, CMP ####[facility] Hnzhkdubbj2440 [place] [phone]. Nahed Yañez Cholesterol [Mass/Vol] 167 mg/dL Normal <=200 Th [facility] Comment on above: Performed By: #### B REJOGGER, LIPID, T7, TSH, CMP ####[facility] Pdxpfofcdr9449 [place] [phone]. Nahed Yañez Cholesterol in HDL [Mass/Vol] 63 mg/dL Critically high 40-60 [facility] Comment on above: Performed By: #### B REJOGGER, LIPID, T7, TSH, CMP ####[facility] Dtzdwdtucp[address] [place], [place] [id number]. Nahed Yañez Cholesterol in LDL [Mass/Vol] 72.6 mg/dL Normal [facility] Comment on above: Performed By: #### B REJOGGER, LIPID, T7, TSH, CMP ####[facility] Pmpnwycvoh[address] [place], [place] [address]Dr. Nahed Yañez Cholesterol.total/Chol esterol in HDL [Mass ratio] 2.7 {ratio} Normal [facility] Comment on above: Performed By: #### B REJOGGER, LIPID, T7, TSH, CMP ####[facility] Knncxtysgm[address] [place], [place] [address]Dr. Nahed Yañez HDL NORMAL > or = 60 mg/dl - LO W CARDIOVASCULAR RISK <40 mg/dl - HIGH CARDIOVASCULAR RISK Normal [facility] Comment on above: Performed By: #### B REJOGGER, LIPID, T7, TSH, CMP ####[facility] Ukolhpvvve[address] [place], [place] [address]Dr. Nahed Yañez LDL CALC NORMAL SEE BELOW Normal [facility] Comment on above: Result Comment: <100 mg/dl OPTIMAL 100 - 129 mg/dl NEAR OR ABOVE OPTIMAL 130 - 159 mg/dl BORDERLINE HIGH 160 - 189 mg/dl HIGH >190 mg/dl VERY HIGH Performed By: #### B REJOGGER, LIPID, T7, TSH, CMP ####[facility] Aysbsykies[address] [place], [place] [address]Dr. Nahed Yañez Triglyceride [Mass/Vol] 157 mg/dL Critically high <=150 [facility] Comment on above: Performed By: #### B REJOGGER, LIPID, T7, TSH, CMP ####[facility] Gscztftvno7295 [place] [phone]. Nahed Yañez VLDL CALC 31.4 mg/dL Normal [facility] Comment on above: Performed By: #### B REJOGGER, LIPID, T7, TSH, CMP ####[facility] Nyuqjguzpy[address] [place] [address]Dr. Nahed Yañez OCC BLD IMMUNO SCREENon 04-14 OCCULT BLOOD Negative Normal NEGATIVE [facility] Comment on above: Performed By: #### O BSCRN ####[facility] Vpcfwqnqvc5798 [place] [address]Dr. Nahed Yañez PROF 14(COMP METB)on 022 Albumin [Mass/Vol] 3.7 g/dL Normal 3.4-5.0 [facility] Comment on above: Performed By: #### B REJOGGER, LIPID, T7, TSH, CMP ####[facility] Juylqufyjl[address] [place], [place] [address]Dr. Nahed Yañez Albumin/Globulin [Mass ratio] 0.9 {ratio} Normal [facility] Comment on above: Performed By: #### B REJOGGER, LIPID, T7, TSH, CMP ####[facility] Ecydaalxqz[address] [place], [place] [address]Dr. Nahed Yañez ALP [Catalytic activity/Vol] 99 U/L Normal 46-116 [facility] Comment on above: Performed By: #### B REJOGGER, LIPID, T7, TSH, CMP ####[facility] Xsbcsdunwl5124 [place] [address]Dr. Nahed Yañez ALT [Catalytic activity/Vol] 20 U/L Normal 14-59 [facility] Comment on above: Performed By: #### B REJOGGER, LIPID, T7, TSH, CMP ####[facility] Tkcddfsvpq5412 [place] [address]Dr. Nahed Yañez Anion gap [Moles/Vol] 10.6 mmol/L Normal [facility] Comment on above: Performed By: #### B REJOGGER, LIPID, T7, TSH, CMP ####[facility] Dmmytunskx3467 [place] [address]Dr. Nahed Yañez AST [Catalytic activity/Vol] 29 U/L Normal 15-37 [facility] Comment on above: Performed By: #### B REJOGGER, LIPID, T7, TSH, CMP ####[facility] Fwxkqfvsly7979 [place] [address]Dr. Nahed Yañez Bilirubin [Mass/Vol] 0.4 mg/dL Normal 0.2-1.0 [facility] Comment on above: Performed By: #### B REJOGGER, LIPID, T7, TSH, CMP ####[facility] Topvuyahnr[address] [place], [place] [address]Dr. Nahed Yañez Calcium [Mass/Vol] 9.3 mg/dL Normal 8.5-10.1 [facility] Comment on above: Performed By: #### B REJOGGER, LIPID, T7, TSH, CMP ####[facility] Wckfpawfrx[address] [place], [place] [address]Dr. Nahed Yañez Chloride [Moles/Vol] 100 mmol/L Normal 98-107 [facility] Comment on above: Performed By: #### B REJOGGER, LIPID, T7, TSH, CMP ####[facility] Rwqwdmeurc[address] [place], [place] [address]Dr. Nahed Yañez CO2 [Moles/Vol] 31.4 mmol/L Normal 21.0-32.0 [facility] Comment on above: Performed By: #### B REJOGGER, LIPID, T7, TSH, CMP ####[facility] Foqizgejpk[address] [place], [place] [address]Dr. Nahed Yañez Creatinine [Mass/Vol] 1.01 mg/dL Normal 0.55-1.02 [facility] Comment on above: Performed By: #### B REJOGGER, LIPID, T7, TSH, CMP ####[facility] Phaxngkuwv[address] [place], [place] [address]Dr. Nahed Yañez EGFR-AF [place]I >60 Normal >=60 [facility] Comment on above: Performed By: #### B REJOGGER, LIPID, T7, TSH, CMP ####[facility] Zvntsgocxh[address] [place], [place] [address]Dr. Nahed Yañez EGFR-NON AF [place]I 56 mL/min/1.73m2 Critically low >=60 [facility] Comment on above: Performed By: #### B REJOGGER, LIPID, T7, TSH, CMP ####[facility] Oioakgttkc0556 [place] [address]Dr. Nahed Yañez Globulin (S) [Mass/Vol] 3.9 g/dL Normal [facility] Comment on above: Performed By: #### B REJOGGER, LIPID, T7, TSH, CMP ####[facility] Nbqbsddvuz7995 [place] [address]Dr. Nahed Yañez Glucose [Mass/Vol] 111 mg/dL Critically high 74-106 T [facility] Comment on above: Performed By: #### B REJOGGER, LIPID, T7, TSH, CMP ####[facility] Gedpqvzmxl[address] [place], [place] [address]Dr. Nahed Yañez Potassium [Moles/Vol] 4.0 mmol/L Normal 3.5-5.1 [facility] Comment on above: Performed By: #### B REJOGGER, LIPID, T7, TSH, CMP ####[facility] Anrklyyijg[address] [place], [place] [address]Dr. Nahed Yañez Protein [Mass/Vol] 7.6 g/dL Normal 6.4-8.2 [facility] Comment on above: Performed By: #### B REJOGGER, LIPID, T7, TSH, CMP ####[facility] Ddrzfqpdvc[address] [place], [place] [address]Dr. Nahed Yañez Sodium [Moles/Vol] 138 mmol/L Normal 136-145 [facility] Comment on above: Performed By: #### B REJOGGER, LIPID, T7, TSH, CMP ####[facility] Vlwhmwdfwa[address] [place], [place] [address]Dr. Nahed Yañez Urea nitrogen [Mass/Vol] 17.0 mg/dL Normal 7.0-18.0 [facility] Comment on above: Performed By: #### B REJOGGER, LIPID, T7, TSH, CMP ####[facility] Ctlffekyjw[address] [place], [place] [address]Dr. Nahed Yañez Urea nitrogen/Creatinine [Mass ratio] 16.8 mg/mg Normal [facility] Comment on above: Performed By: #### B REJOGGER, LIPID, T7, TSH, CMP ####[facility] Qeyaykttrr0826 [place] [id number]. Nahed Yañez TSHon 05-08-2022 TSH 2.835 uIU/mL Normal 0.358-3.740 [facility] Comment on above: Performed By: #### B REJOGGER, LIPID, T7, TSH, CMP ####[facility] Uizuzhpdkg7640 [place] [id number]. Rosemarieashley Otilio VITAMIN D 25 OHon 05-08-2022 VIT D 25-OH 13.4 ng/mL Normal [facility] Comment on above: Performed By: #### V GRAEME, IRON ####[facility] Kdwhchuxja[address] [place] [address]Dr. Nahed Yañez VIT D RANGES SEE BELOW Normal [facility] Comment on above: Result Comment: <20 ng/mL Vit D deficient 20 - <30 ng/mL Vit D insufficient 30 - 100 ng/mL Vit D sufficient >100 ng/mL Potential Toxicity Performed By: #### Bianca BEDOLLA, IRON ####[facility] Uzmekbekpp8[address] [place] [address]Dr. Nahed Yañez CARDIAC FRANCISCO 3-6on 2 CK [Catalytic activity/Vol] 37 U/L Normal 26-192 [facility] Comment on above: Performed By: #### C MREP ####[facility] Pzpqtslpyf[address] [place], [place] [address]Dr. Nahed Yañez CK.MB [Mass/Vol] 0.79 ng/mL Normal <=3.60 [facility] Comment on above: Performed By: #### C MREP ####[facility] Yuqfnjyvdr9197 [place] [address]Dr. Nahed Yañez HSTROP 55.3 pg/mL Critically high 4.0-51.3 [facility] Comment on above: Result Comment: CUT- OFF POINTS HAVE BEEN ESTABLISHED BASED ON THE FOURTH UNIVERSAL DEFINITIONS OF MYOCARDIALINFARCTION. THE UPPER REFERENCE LIMIT (URL) OF TROPONIN, DEFINED THE 99TH PERCENTILE OFcTnI DISTRIBUTION IN A REFERENCE POPULATION, HAS BEEN CONFIRMED THE DECISION THRESHOLDFOR AL DIAGNOSIS. Performed By: #### C MREP ####[facility] Oxhktphirp2054 [place], [place] [address]Cn. Nahed Yañez CK [Catalytic activity/Vol] 49 U/L Normal 26-192 [facility] Comment on above: Performed By: #### C MREP ####[facility] Lyedxwzhgg1603 [place], [place] [address]Zg. Nahed Yañez CK.MB [Mass/Vol] 0.71 ng/mL Normal <=3.60 [facility] Comment on above: Performed By: #### C MREP ####[facility] Jtzduwcagw3361 [place], [place] [address]Jo. Nahed Yañez HSTROP 62.6 pg/mL Critically high 4.0-51.3 [facility] Comment on above: Result Comment: CUT- OFF POINTS HAVE BEEN ESTABLISHED BASED ON THE FOURTH UNIVERSAL DEFINITIONS OF MYOCARDIALINFARCTION. THE UPPER REFERENCE LIMIT (URL) OF TROPONIN, DEFINED THE 99TH PERCENTILE OFcTnI DISTRIBUTION IN A REFERENCE POPULATION, HAS BEEN CONFIRMED THE DECISION THRESHOLDFOR AL DIAGNOSIS. Performed By: #### C MREP ####[facility] Phpieymgeq5715 [place], [place] [address]Hx. Nahed Yañez Covid-19 PCR ([facility]on 01-13 SARS-CoV-2 (COVID-19) RNA MIRNA+probe Ql (Unsp spec) Not detected Normal NOT DETECTED [facility] Comment on above: Result Comment: When diagnostic [...] for this test is supported by the Radio Performer of Health and Human Service's declaration that [...] longer be used). Performed By: #### C VDPETER [facility] ####[facility] Boluberehg[address] [place] [id number]. Nahed Yañez ECHO LIMITED STUDYon 022 ECHO LIMITED STUDY Normal [facility] GLYCOHEMOGLOBIN A1Con 2021 ADA RECOMMENDATION SEE BELOW Normal [facility] Comment on above: Result Comment: ADA RECOMMENDED LIMIT 4.0 - 6.0 ADA THERAPEUTIC TARGET < 7.0 ACTION SUGGESTED > 7.0 Performed By: #### A 1C ####[facility] Fzewlqlmnv[address] [place], [place] [address]Dr. Nahed Yañez Glucose [Mass/Vol] 140 mg/dL Normal [facility] Comment on above: Performed By: #### A 1C ####[facility] Vydwkljgef[address] [place], [place] [address]Dr. Nahed Yañez HbA1c (Bld) [Mass fraction] 6.5 % Critically high 4.5-6.2 [facility] Comment on above: Performed By: #### A 1C ####[facility] Bpdmdedhzi[address] [place], [place] [address]Dr. Nahed Yañez LIPID PROFILEon 01-31-2022 CHOL-HDL RATIO NORM SEE BELOW Normal [facility] Comment on above: Result Comment: 3.3 - 4.4 LOW RISK 4.4 - 7.1 AVERAGE RISK 7.1 - 11.0 MODERATE RISK >11.0 HIGH RISK Performed By: #### L IPID ####[facility] Sutlpbxrgd5[address] [place] [address]Dr. Nahed Yañez Cholesterol [Mass/Vol] 152 mg/dL Normal <=200 Th [facility] Comment on above: Performed By: #### L IPID ####[facility] Hyonbxrlvt5555 [place] [address]Dr. Nahed Yañez Cholesterol in HDL [Mass/Vol] 74 mg/dL Critically high 40-60 [facility] Comment on above: Performed By: #### L IPID ####[facility] Ongbgfcfex0320 [place] [id number]. Nahed Yañez Cholesterol in LDL [Mass/Vol] 62.8 mg/dL Normal [facility] Comment on above: Performed By: #### L IPID ####[facility] Fplwistoje5924 [place] [id number]. Nahed Yañez Cholesterol.total/Chol esterol in HDL [Mass ratio] 2.1 {ratio} Normal [facility] Comment on above: Performed By: #### L IPID ####[facility] Vafbxcjgqb2923 [place] [id number]. Nahed Yañez HDL NORMAL > or = 60 mg/dl - LO W CARDIOVASCULAR RISK <40 mg/dl - HIGH CARDIOVASCULAR RISK Normal [facility] Comment on above: Performed By: #### L IPID ####[facility] Dkaxkeedht2793 [place] [address]Dr. Nahed Yañez LDL CALC NORMAL SEE BELOW Normal [facility] Comment on above: Result Comment: <100 mg/dl OPTIMAL 100 - 129 mg/dl NEAR OR ABOVE OPTIMAL 130 - 159 mg/dl BORDERLINE HIGH 160 - 189 mg/dl HIGH >190 mg/dl VERY HIGH Performed By: #### L IPID ####[facility] Atwqztrfxt1091 [place] [id number]. Nahed Yañez Triglyceride [Mass/Vol] 76 mg/dL Normal <=150 [facility] Comment on above: Performed By: #### L IPID ####[facility] Dllblioxht2193 [place] [id number]. Nahed Yañez VLDL CALC 15.2 mg/dL Normal [facility] Comment on above: Performed By: #### L IPID ####[facility] Giyxeleage1014 [place] [id number]. Nahed Yañez XR CHEST 1 Von 01-31-2022 XR CHEST 1 V Normal [facility] BNPon 01-30-2022 Natriuretic peptide B (Bld) [Mass/Vol] 150.0 pg/mL Normal <=900.0 [facility] Comment on above: Performed By: #### B MP, BNP, CMADM ####[facility] Unepeqqruu[address] [place] [address]Dr. Nahed Yañez CARDIAC FRANCISCO ADMITon 022 CK [Catalytic activity/Vol] 88 U/L Normal 26-192 [facility] Comment on above: Performed By: #### B MP, BNP, CMADM ####[facility] Nsevenwrmh5151 [place] [address]Dr. Nahed Yañez CK.MB [Mass/Vol] 1.26 ng/mL Normal <=3.60 [facility] Comment on above: Performed By: #### B MP, BNP, CMADM ####[facility] Fntkhtrtqv3255 [place] [address]Dr. Nahed Otilio HSTROP 69.3 pg/mL Critically high 4.0-51.3 [facility] Comment on above: Result Comment: CUT- OFF POINTS HAVE BEEN ESTABLISHED BASED ON THE FOURTH UNIVERSAL DEFINITIONS OF MYOCARDIALINFARCTION. THE UPPER REFERENCE LIMIT (URL) OF TROPONIN, DEFINED THE 99TH PERCENTILE OFcTnI DISTRIBUTION IN A REFERENCE POPULATION, HAS BEEN CONFIRMED THE DECISION THRESHOLDFOR AL DIAGNOSIS. Performed By: #### B MP, BNP, CMADM ####[facility] Jdeuwkenho0423 [place] [address]Dr. Nahed Otilio ANDRE 59 ng/mL Normal 9-82 [facility] Comment on above: Performed By: #### B MP, BNP, CMADM ####[facility] Dssyqzcqtp2392 [place] [address]Dr. Nahed Otilio CBC AUTO DIFFon 01-30-2022 BASO # 0.0 103/ul Normal 0.0-0.1 [facility] Comment on above: Performed By: #### C BC ####[facility] Vwyfxedgno[address] [place] [address]Dr. Rosemarieashley Yañez Basophils/100 WBC (Bld) 0.2 % Normal 0.2-2.0 [facility] Comment on above: Performed By: #### C BC ####[facility] Hyzgmntpge8630 [place] [address]Dr. Nahed Yañez EO # 0.1 103/ul Normal 0.0-0.7 [facility] Comment on above: Performed By: #### C BC ####[facility] Wlavaezboi2093 [place] [address]Dr. Nahed Yañez Eosinophils/100 WBC (Bld) 0.8 % Critically low 0.9-7.0 [facility] Comment on above: Performed By: #### C BC ####[facility] Juwafzzciz5[address] [place] [address]Dr. Nahed Yañez Erythrocyte distribution width (RBC) [Ratio] 14.9 % Normal 11.0-15.0 [facility] Comment on above: Performed By: #### C BC ####[facility] Eekaeidybm[address] [place], [place] [address]Dr. Nahed Yañez Hematocrit (Bld) [Volume fraction] 45.8 % Normal 36.0-48.0 [facility] Comment on above: Performed By: #### C BC ####[facility] Xuzxdsytmo[address] [place], [place] [address]Dr. Nahed Yañez Hemoglobin (Bld) [Mass/Vol] 14.7 g/dL Normal 12.0-16.0 [facility] Comment on above: Performed By: #### C BC ####[facility] Mtndfbeecj[address] [place], [place] [address]Dr. Nahed Yañez IG # 0.07 10e3/ul Critically high 0.00-0.03 [facility] Comment on above: Performed By: #### C BC ####[facility] Lmrrpsutka[address] [place] [address]Dr. Nahed Yañez IG % 0.4 % Normal 0.0-0.5 [facility] Comment on above: Performed By: #### C BC ####[facility] Lpkutfpfdf[address] [place], [place] [address]Dr. Nahed Yañez LYMPH # 2.3 103/ul Normal 1.2-3.8 [facility] Comment on above: Performed By: #### C BC ####[facility] [address]xbe[address] [place] [address]. Nahed Yañez Lymphocytes/100 WBC (Bld) 12.5 % Critically low 20.5-60.0 [facility] Comment on above: Performed By: #### C BC ####[facility] Algctwopfn[address] [place] [address]Dr. Nahed Yañez MANUAL DIFF REQ NO Normal [facility] Comment on above: Performed By: #### C BC ####[facility] Bhjdzhsrzz7[address] [place] [address]Dr. Nahed Yañez MCH (RBC) [Entitic mass] 28.0 pg Normal 26.7-34.0 [facility] Comment on above: Performed By: #### C BC ####[facility] [address]cqsykcfxw[address] [place], [place] [address]Dr. Nahed Yañez MCHC (RBC) [Mass/Vol] 32.1 g/dL Normal 29.9-35.2 [facility] Comment on above: Performed By: #### C BC ####[facility] Udqxokrhcl[address] [place], [place] [address]Dr. Nahed Yañez MCV (RBC) [Entitic vol] 87.2 fL Normal 81.0-99.0 [facility] Comment on above: Performed By: #### C BC ####[facility] Qgiklcrlon246302 [address] [place], [place] [address]Dr. Nahed Yañez MONO # 0.9 103/ul Critically high 0.3-0.8 [facility] Comment on above: Performed By: #### C BC ####[facility] Gwks[address] [place], [place] [address]Dr. Nahed Yañez Monocytes/100 WBC (Bld) 5.1 % Normal 1.7-12.0 [facility] Comment on above: Performed By: #### C BC ####[facility] Ikhxmjsmww[address] [place], [place] [address]Dr. Nahed Yañez NEUT # 14.6 103/ul Critically high 1.4-6.5 [facility] Comment on above: Performed By: #### C BC ####[facility] Wtrfjavhxr[address] [place], [place] [address]Dr. Nahed Yañez Neutrophils/100 WBC (Bld) 81.0 % Critically high 43.0-75.0 [facility] Comment on above: Performed By: #### C BC ####[facility] Hkwhyqvlmt14[address] [place] [address]Dr. Nahed Yañez Platelet mean volume (Bld) [Entitic vol] 10.3 fL Normal 9.5-13.5 [facility] Comment on above: Performed By: #### C BC ####[facility] Gmzmtllqvs4119 [place] [address]Dr. Nahed Yañez PLT 280 103/ul Normal 150-450 [facility] Comment on above: Performed By: #### C BC ####[facility] Supbhjsyyw1828 [place] [address]Dr. Nahed Yañez RBC 5.25 106/ul Normal 4.20-5.40 [facility] Comment on above: Performed By: #### C BC ####[facility] Bsggmzckdf6[address] [place] [address]Dr. Nahed Yañez WBC 18.1 103/ul Critically high 4.0-11.0 [facility] Comment on above: Performed By: #### C BC ####[facility] Nreozrieks4464 [place] [address]Dr. Nahed Yañez PROF CHEM 8 (BAS METB)on Anion gap [Moles/Vol] 13.5 mmol/L Normal [facility] Comment on above: Performed By: #### B MP, BNP, CMADM ####[facility] Ldfvmcuebh3218 [place] [address]Dr. Nahed Yañez Calcium [Mass/Vol] 9.5 mg/dL Normal 8.5-10.1 [facility] Comment on above: Performed By: #### B MP, BNP, CMADM ####[facility] Rwnigurhpp54[address] [place] [address]Dr. Nahed Yañez Chloride [Moles/Vol] 102 mmol/L Normal 98-107 [facility] Comment on above: Performed By: #### B MP, BNP, CMADM ####[facility] Dnnxrhdcft7938 [place] [address]Dr. Nahed Yañez CO2 [Moles/Vol] 26.6 mmol/L Normal 21.0-32.0 [facility] Comment on above: Performed By: #### B MP, BNP, CMADM ####[facility] Dzxxmqqvdc8739 [place] [address]Dr. Nahed Yañez Creatinine [Mass/Vol] 1.06 mg/dL Critically high 0.55-1.02 [facility] Comment on above: Performed By: #### B MP, BNP, CMADM ####[facility] Meqcwiwzap6[address] [place] [address]Dr. Nahed Yañez EGFR-AF KUWAITI >60 Normal >=60 [facility] Comment on above: Performed By: #### B MP, BNP, CMADM ####[facility] Duvyodyocm[address] [place], [place] [address]Dr. Rosemarieashley Otilio EGFR-NON AF [place]I 53 mL/min/1.73m2 Critically low >=60 [facility] Comment on above: Performed By: #### B MP, BNP, CMADM ####[facility] Mxsumdkrop[address] [place], [place] [address]Dr. Nahed Yañez Glucose [Mass/Vol] 108 mg/dL Critically high 74-106 [facility] Comment on above: Performed By: #### B MP, BNP, CMADM ####[facility] Ttxzrqwits5524 [place] [address]Dr. Nahed Yañez Potassium [Moles/Vol] 4.1 mmol/L Normal 3.5-5.1 [facility] Comment on above: Performed By: #### B MP, BNP, CMADM ####[facility] Cxajlskbfm[address] [place], [place] [address]Dr. Nahed Yañez Sodium [Moles/Vol] 138 mmol/L Normal 136-145 [facility] Comment on above: Performed By: #### B MP, BNP, CMADM ####[facility] Zoxzfyrwpd1050 [place] [address]Dr. Nahed Yañez Urea nitrogen [Mass/Vol] 9.0 mg/dL Normal 7.0-18.0 [facility] Comment on above: Performed By: #### B MP, BNP, CMADM ####[facility] Psvfomigxt2200 [place], [place] [address]To. Nahed Yañez Urea nitrogen/Creatinine [Mass ratio] 8.5 mg/mg Normal [facility] Comment on above: Performed By: #### B MP, BNP, CMADM ####[facility] Maklnppqkc1153 [place], [place] [address]Vg. Nahed Yañez Cardiovascular Lab Reporton 11-03-2021 Cardiovascular Lab Report [facility] Patient Name: Vivian Vann [facility] MR #: [id number] Physician: Gasper Avendano Department of M.D. Medicine Service Date: 11/02/2021 Division of Birthdate: 1960 Cardiology Room #: 4AB [id number] [facility] [place] [address] Cardiovascular Laboratory Report FINAL IMPRESSIONS: 1. Severe, [...] anterior descending coronary artery, placement of a 6-Montserratian MynxGrip closure device. METHODS: After risks, benefits, and alternatives were explained, written informed consent was obtained. The patient was prepped and draped in usual sterile fashion over both groins. Using 1% lidocaine solution, local infiltration anesthesia was achieved over the right groin. Under ultrasound guidance, a micropuncture kit was used to access the right common femoral artery. This was upsized to a 6-Montserratian 11 cm sheath. Angiography via the 6-Montserratian sheath was performed. Bilateral selective coronary angiography was performed using JL4 and JR4 catheters. After reviewing the images, it was elected to proceed with an interventional procedure. A 6-Montserratian XB3.5 guide catheter was advanced over a [...] artery, angiography was repeated initially using a 6-Montserratian 3DRC catheter and subsequently using a 4-Montserratian JR4 catheter. After administration of intracoronary nitroglycerin, the concerning lesion almost completely resolved. There was a residual mild stenosis. All catheters removed. A 6-Montserratian MynxGrip closure device was deployed per protocol [...] and anatomy suitable for closure device. INDICATION: [id number] myocardial infarction. Electronically Signed by: Gasper Avendano M.D. 11/21/2021 02:07 P Gasper Avendano M.D (more content not included)... Normal [facility] CBC COMPLETE BLOOD COUNTon 0 11-02-2021 Erythrocyte distribution width (RBC) [Ratio] 14.7 % Normal 11.5-15.0 [facility] Comment on above: Order Comment: No: D o not add to previous draw Performed By: #### 3 5200, 78547 #### [facility] 3000 [facility]. [address] Hematocrit (Bld) [Volume fraction] 34.5 % Low 36.0-45.0 [facility] Comment on above: Order Comment: No: D o not add to previous draw Performed By: #### 3 0680, 83408 #### [facility] [address] [facility] [place] [address], [facility] Hemoglobin (Bld) [Mass/Vol] 10.6 g/dL Low 12.0-15.0 [facility] Comment on above: Order Comment: No: D o not add to previous draw Performed By: #### 3 5200, 21603 #### [facility] [address] [facility] [place] [id number], [facility] MCH (RBC) [Entitic mass] 28.1 pg Normal 27.0-33.0 [facility] Comment on above: Order Comment: No: D o not add to previous draw Performed By: #### 3 0, 61024 #### [facility] [address] [place] [address], [facility] MCHC (RBC) [Mass/Vol] 30.7 g/dL Low 32.0-35.0 [facility] Comment on above: Order Comment: No: D o not add to previous draw Performed By: #### 3 0, 90351 #### [facility] [address] [place] [address], [facility] MCV (RBC) [Entitic vol] 91.5 fL Normal 82.0-98.0 [facility] Comment on above: Order Comment: No: D o not add to previous draw Performed By: #### 3 5199, 16370 #### [facility] [address] [place] [address], [facility] Nucleated RBC/100 WBC (Bld) [Ratio] 0 % Normal 0-0 [facility] Comment on above: Order Comment: No: D o not add to previous draw Performed By: #### 3 5199, 49310 #### [facility] [address] [facility] [place] [address], [facility] PLAT CNT 219 10*3/uL Normal 150-400 [facility] Comment on above: Order Comment: No: D o not add to previous draw Performed By: #### 3 5199, 96433 #### [facility] [address] [facility] [place] [address], [facility] RBC (Bld) [#/Vol] 3.77 10*6/uL Low 3.80-5.00 [facility] Comment on above: Order Comment: No: D o not add to previous draw Performed By: #### 3 5199, 74069 #### [facility] [address] [place] [address], [facility] WBC (Bld) [#/Vol] 13.64 10*3/uL High 4.00-10.60 [facility] Comment on above: Order Comment: No: D o not add to previous draw Performed By: #### 3 5200, 06210 #### [facility] [address] [place] [address], [facility] HEMOGLOBIN A1Con 11-02-2021 Glucose [Moles/Vol] 140 mmol/L Normal [facility] Comment on above: Order Comment: No: D o not add to previous draw Performed By: #### 3 1791 #### [facility] [address] [place] [address], [facility] HbA1c (Bld) [Mass fraction] 6.5 % High 4.0-6.0 [facility] Comment on above: Order Comment: No: D o not add to previous draw Performed By: #### 3 1791 #### [facility] [address] [place] [address], [place] LIPID PROFILEon 11-02-2021 Cholesterol [Mass/Vol] 171 mg/dL Normal 120-200 [facility] Comment on above: Order Comment: No: D o not add to previous draw Result Comment: CHOL ESTEROL REFERENCE RANGE: 20 YEARS AND OLDER CARDIOVASCULAR RISK Less than 200 mg/dl Low Risk 200 to 239 mg/dl Borderline Risk 240 mg/dl and greater High Risk Performed By: #### 3 5200, 23489 #### [facility] [address] [place] [address], [facility] Cholesterol in HDL [Mass/Vol] 57 mg/dL Normal 23-92 [facility] Comment on above: Order Comment: No: D o not add to previous draw Result Comment: Slig ht variation in normal range could be due to gender and/or age. HDL CHOLESTEROL REFERENCE RANGE: 20 years and older Cardiovascular Risk > or =60 mg/dL Desirable 40 TO 59 mg/dL Low Risk <40 mg/dL High Risk Performed By: #### 3 5200, 24988 #### [facility] [address] [place] [address], [place] Cholesterol in LDL [Mass/Vol] 89 mg/dL Normal 0-130 [facility] Comment on above: Order Comment: No: D o not add to previous draw Result Comment: LDL IS A CALCULATION LDL IS ONLY VALID IF THE TRIG IS LESS THAN 400. Performed By: #### 3 5200, 89256 #### [facility] [address] Cholesterol.total/Chol esterol in HDL [Mass ratio] 3.0 {ratio} Normal .0-4.5 [facility] Comment on above: Order Comment: No: D o not add to previous draw Performed By: #### 3 5200, 99062 #### [facility] [address] NON-HDL CHOLESTEROL 114 mg/dL Normal [facility] Comment on above: Order Comment: No: D o not add to previous draw Performed By: #### 3 5200, 16366 #### [facility] [address] Triglyceride [Mass/Vol] 124 mg/dL Normal 40-149 [facility] Comment on above: Order Comment: No: D o not add to previous draw Result Comment: TRIG LYCERIDE REFERENCE RANGE: 20 YEARS AND OLDER CARDIOVASCULAR RISK LESS THAN 150 mg/dl LOW RISK 150 TO 199 mg/dl BORDERLINE RISK 200 mg/dl AND GREATER HIGH RISK Performed By: #### 3 5200, 33772 #### [facility] [address] [place] [address], [facility] VLDL CHOL 25 mg/dL Normal 0-40 [facility] Comment on above: Order Comment: No: D o not add to previous draw Performed By: #### 3 5200, 12203 #### [facility] [address] TROPONIN-Ion 11-02-2021 Troponin I.cardiac [Mass/Vol] 0.14 ng/mL Critically high 0.00-0.04 [facility] Comment on above: Result Comment: M-HI EVIOUS CRITICAL RESULT REFERENCE RANGES: 0.00 - 0.04 ng/ml NORMAL 0.05 - 0.50 ng/ml INDETERMINATE > 0.50 ng/ml CONSISTENT WITH AN M.I. Performed By: #### 3 5200, 07489 #### [facility] [address] Troponin I.cardiac [Mass/Vol] 0.19 ng/mL Critically high 0.00-0.04 [facility] Comment on above: Order Comment: No: D o not add to previous draw Result Comment: M-HI EVIOUS CRITICAL RESULT REFERENCE RANGES: 0.00 - 0.04 ng/ml NORMAL 0.05 - 0.50 ng/ml INDETERMINATE > 0.50 ng/ml CONSISTENT WITH AN M.I. Performed By: #### 3 5200 #### [facility] [address] TYPE AND SCREENon 11-02-2021 ABO INTERPRETATION O Normal [facility] Comment on above: Performed By: #### 3 5200, 49721 #### [facility] [address] [facility] [place] [address], [facility] RH INTERPRETATION Positive Normal [facility] Comment on above: Performed By: #### 3 5200, 80781 #### [facility] [address] [facility] UFH HEPARIN ASSAYon 11-03-19 22 UNFRACTIONATED HEPARIN 0.76 IU/mL High 0.30-0.70 [facility] Comment on above: Result Comment: Danese roxaban and Apixaban will interfere with the anti Xa assay used to monitor UFH and LMWH. Performed By: #### 3 5200, 07864 #### [facility] [address] [place] [address], [facility] UNFRACTIONATED HEPARIN 0.96 IU/mL Critically high 0.30-0.7 0 [facility] Comment on above: Result Comment: Resu lt checked and called. Accurately read back by Kathy Kralik RN at 0548 Rivaroxaban and Apixaban will interfere with the anti Xa assay used to monitor UFH and LMWH. Performed By: #### 3 0477 #### [facility] [address] APTTon 11-01-2021 aPTT Coag (Bld) [Time] 28.6 s Normal 25.0-35.0 [facility] Comment on above: Order Comment: No: [...] THIS PURPOSE. Performed By: #### 3 5200, 33035 #### [facility] [address] BNPon 11-01-2021 Natriuretic peptide B (Bld) [Mass/Vol] 9643.0 pg/mL Critically high <=900.0 [facility] Comment on above: Performed By: #### C MP, BNP, HSTROPN ####[facility] Xseuhoocoj[address] [place] [address]DrShaun Nahed Yañez BNP (B-TYPE NATRIURETIC PEPT AYLEEN)on 11-01-2021 Natriuretic peptide B (Bld) [Mass/Vol] 768 pg/mL High 0-100 [facility] Comment on above: Order Comment: No: D o not add to previous draw Result Comment: Give n the appropriate clinical setting a BNP result of >100 pg/mL indicates congestive heart failure. Performed By: #### 8 5123 #### [facility] [address] CBC AUTO DIFFon 11-01-2021 BASO # 0.0 103/ul Normal 0.0-0.1 [facility] Comment on above: Performed By: #### C BC ####[facility] Ljacctmroq[address] [place] [address]Dr. Nahed Yañez Basophils/100 WBC (Bld) 0.1 % Critically low 0.2-2.0 [facility] Comment on above: Performed By: #### C BC ####[facility] Shfaiiknsu[address] [place] [address]Dr. Nahed Yañez EO # 0.0 103/ul Normal 0.0-0.7 [facility] Comment on above: Performed By: #### C BC ####[facility] Mwauuttrej[address] [place], [place] [address]Dr. Nahed Yañez Eosinophils/100 WBC (Bld) 0.0 % Critically low 0.9-7.0 [facility] Comment on above: Performed By: #### C BC ####[facility] Qddiqxxg[address] [place], [place] [address]Dr. Nahed Yañez Erythrocyte distribution width (RBC) [Ratio] 14.7 % Normal 11.0-15.0 [facility] Comment on above: Performed By: #### C BC ####[facility] Syndlkcixu[address] [place], [place] [address]Dr. Nahed Yañez Hematocrit (Bld) [Volume fraction] 36.1 % Normal 36.0-48.0 [facility] Comment on above: Performed By: #### C BC ####[facility] Izmbt[address] [place], [place] [address]Dr. Nahed Yañez Hemoglobin (Bld) [Mass/Vol] 11.1 g/dL Critically low 12.0-16.0 [facility] Comment on above: Result Comment: IV a ntibiotics Performed By: #### C BC ####[facility] Enrdzuzwkg[address] [place], [place] [address]Dr. Rosemarieashley Otilio IG # 0.09 10e3/ul Critically high 0.00-0.03 [facility] Comment on above: Performed By: #### C BC ####[facility] Hijcsrnpev[address] [place], [place] [address]Dr. Nahed Yañez IG % 0.7 % Critically high 0.0-0.5 [facility] Comment on above: Performed By: #### C BC ####[facility] Ubfivzndmb[address] [place] [id number]. Nahed Otilio LYMPH # 0.6 103/ul Critically low 1.2-3.8 [facility] Comment on above: Performed By: #### C BC ####[facility] Maugrgsvwt74[address] [place] [address]Dr. Rosemarieashley Yañez Lymphocytes/100 WBC (Bld) 4.8 % Critically low 20.5-60.0 [facility] Comment on above: Performed By: #### C BC ####[facility] Uvkucxxzuo7215 [place] [address]Dr. Nahed Yañez MANUAL DIFF REQ NO Normal [facility] Comment on above: Performed By: #### C BC ####[facility] Mzukvpqlkx9126 [place] [address]Dr. Nahed Yañez MCH (RBC) [Entitic mass] 28.2 pg Normal 26.7-34.0 [facility] Comment on above: Performed By: #### C BC ####[facility] Hgmiztuyrr0993 [place] [address]Dr. Nahed Yañez MCHC (RBC) [Mass/Vol] 30.7 g/dL Normal 29.9-35.2 [facility] Comment on above: Performed By: #### C BC ####[facility] Ojomwrxeff5465 [place] [address]Dr. Nahed Yañez MCV (RBC) [Entitic vol] 91.9 fL Normal 81.0-99.0 [facility] Comment on above: Performed By: #### C BC ####[facility] Ldslwiibnh6399 [place] [address]Dr. Nahed Yañez MONO # 0.2 103/ul Critically low 0.3-0.8 [facility] Comment on above: Performed By: #### C BC ####[facility] Ijnataojfl8647 [place] [address]Dr. Nahed Yañez Monocytes/100 WBC (Bld) 1.7 % Normal 1.7-12.0 [facility] Comment on above: Performed By: #### C BC ####[facility] [address] [place], [place] [address]Md. Nahed Yañez NEUT # 11.2 103/ul Critically high 1.4-6.5 [facility] Comment on above: Performed By: #### C BC ####[facility] Syccexnaqx2961 [place], [place] [address]Cl. Nahed Yañez Neutrophils/100 WBC (Bld) 92.7 % Critically high 43.0-75.0 [facility] Comment on above: Performed By: #### C BC ####[facility] Mutwijpasm[address]32 [place] [address]Dr. Nahed Yañez Platelet mean volume (Bld) [Entitic vol] 11.1 fL Normal 9.5-13.5 [facility] Comment on above: Performed By: #### C BC ####[facility] Vz[address]jfyrdo2004 [place] [address]Dr. Nahed Yañez PLT 213 103/ul Normal 150-450 [facility] Comment on above: Performed By: #### C BC ####[facility] Qefignounj9943 [place] [address]Dr. Nahed Yañez RBC 3.93 106/ul Critically low 4.20-5.40 [facility] Comment on above: Performed By: #### C BC ####[facility] Navtbydyde6866 [place] [address]Dr. Nahed Yañez WBC 12.0 103/ul Critically high 4.0-11.0 [facility] Comment on above: Performed By: #### C BC ####[facility] Wtyfghhepp4561 [place] [address]Dr. Nahed Yañez CBC W/DIFFon 11-01-2021 ABS IMM GRANS 0.2 10*3/uL Normal 0.0-0.2 [facility] Comment on above: Order Comment: No: D o not add to previous draw Performed By: #### 3 6730, 79398 #### [facility] [address] [place] [address], [place] ABS NEUTROPHILS 12.5 10*3/uL High 1.6-7.6 [facility] Comment on above: Order Comment: No: D o not add to previous draw Performed By: #### 3 5200, 05887 #### [facility] [address] [place] [address], [facility] Basophils (Bld) [#/Vol] 0.0 10*3/uL Normal 0.0-0.2 [facility] Comment on above: Order Comment: No: D o not add to previous draw Performed By: #### 3 5199, 88097 #### [facility] [address] [place] [address], [facility] Basophils/100 WBC (Bld) 0.0 % Normal 0.0-1.0 [facility] Comment on above: Order Comment: No: D o not add to previous draw Performed By: #### 3 5199, 67290 #### [facility] [address] [place] [address], [facility] Eosinophils (Bld) [#/Vol] 0.0 10*3/uL Normal 0.0-0.5 [facility] Comment on above: Order Comment: No: D o not add to previous draw Performed By: #### 3 5199, 61205 #### [facility] [address] [facility] [place] [address], [facility] Eosinophils/100 WBC (Bld) 0.0 % Normal 0.0-6.0 [facility] Comment on above: Order Comment: No: D o not add to previous draw Performed By: #### 3 0, 13542 #### [facility] [address] [facility] [place] [address], [place] Erythrocyte distribution width (RBC) [Ratio] 14.6 % Normal 11.5-15.0 [facility] Comment on above: Order Comment: No: D o not add to previous draw Performed By: #### 3 5199, 70597 #### [facility] [address] [facility] Hematocrit (Bld) [Volume fraction] 36.6 % Normal 36.0-45.0 [facility] Comment on above: Order Comment: No: D o not add to previous draw Performed By: #### 3 5199, 94833 #### [facility] [address] [facility] [place] [address], [facility] Hemoglobin (Bld) [Mass/Vol] 11.4 g/dL Low 12.0-15.0 [facility] Comment on above: Order Comment: No: D o not add to previous draw Performed By: #### 3 5199, 60689 #### [facility] [address] [place] [address], [facility] IMMATURE GRANS 1.2 % High 0.0-1.0 [facility] Comment on above: Order Comment: No: D o not add to previous draw Performed By: #### 3 5199, 40457 #### [facility] 3000 [facility]. [address] Lymphocytes (Bld) [#/Vol] 0.6 10*3/uL Low 1.2-4.0 [facility] Comment on above: Order Comment: No: D o not add to previous draw Performed By: #### 3 5199, 70955 #### [facility] [address] [facility] [address], [facility] Lymphocytes/100 WBC (Bld) 4.2 % Low 20.0-45.0 [facility] Comment on above: Order Comment: No: D o not add to previous draw Performed By: #### 3 5199, 75393 #### [facility] [address] [facility] [address], [facility] MCH (RBC) [Entitic mass] 28.2 pg Normal 27.0-33.0 [facility] Comment on above: Order Comment: No: D o not add to previous draw Performed By: #### 3 5199, 78379 #### [facility] [address] [place] [address], [facility] MCHC (RBC) [Mass/Vol] 31.1 g/dL Low 32.0-35.0 [facility] Comment on above: Order Comment: No: D o not add to previous draw Performed By: #### 3 0, 47053 #### [facility] [address] [place] [address], [facility] MCV (RBC) [Entitic vol] 90.6 fL Normal 82.0-98.0 [facility] Comment on above: Order Comment: No: D o not add to previous draw Performed By: #### 3 5199, 49359 #### [facility] [address] [place] [id number], [facility] Monocytes (Bld) [#/Vol] 0.5 10*3/uL Normal 0.1-1.0 [facility] Comment on above: Order Comment: No: D o not add to previous draw Performed By: #### 3 5199, 44371 #### [facility] [address] [place] [address], [facility] MONOS 3.3 % Low 5.0-12.0 [facility] Comment on above: Order Comment: No: D o not add to previous draw Performed By: #### 3 5199, 40000 #### [facility] [address] [place] [address], [facility] Neutrophils/100 WBC (Bld) 91.3 % High 40.0-72.0 [facility] Comment on above: Order Comment: No: D o not add to previous draw Performed By: #### 3 5199, 31325 #### [facility] [address] [place] [id number], [facility] Nucleated RBC/100 WBC (Bld) [Ratio] 0 % Normal 0-0 [facility] Comment on above: Order Comment: No: D o not add to previous draw Performed By: #### 3 5200, 75409 #### [facility] [address] [place] [address], [facility] PLAT CNT 224 10*3/uL Normal 150-400 [facility] Comment on above: Order Comment: No: D o not add to previous draw Performed By: #### 3 5200, 33647 #### [facility] [address] [place] [address], [facility] RBC (Bld) [#/Vol] 4.04 10*6/uL Normal 3.80-5.00 [facility] Comment on above: Order Comment: No: D o not add to previous draw Performed By: #### 3 5200, 29305 #### [facility] [address] [place] [address], [facility] WBC (Bld) [#/Vol] 13.70 10*3/uL High 4.00-10.60 [facility] Comment on above: Order Comment: No: D o not add to previous draw Performed By: #### 3 5200, 00901 #### [facility] [address] [place] [address], [facility] COMP METABOLIC PANELon 11-01 Albumin [Mass/Vol] 3.7 g/dL Normal 3.5-5.7 [facility] Comment on above: Order Comment: No: D o not add to previous draw Performed By: #### 0 0121, 13292, 49672 #### [facility] [address] [place] [address], [facility] ALKALINE PHOSPH 54 IU/L Normal 34-104 [facility] Comment on above: Order Comment: No: D o not add to previous draw Performed By: #### 0 0121, 86802, 53372 #### [facility] [address] [place] [address], [place] ALT [Catalytic activity/Vol] 12 U/L Normal 7-52 [facility] Comment on above: Order Comment: No: D o not add to previous draw Performed By: #### 0 0121, 28942, 86754 #### [facility] [address] [place] [address], [place] AST [Catalytic activity/Vol] 17 U/L Normal 13-39 [facility] Comment on above: Order Comment: No: D o not add to previous draw Performed By: #### 0 0121, 50116, 31029 #### [facility] [address] [place] [address], [place] Bilirubin [Mass/Vol] 0.3 mg/dL Normal 0.3-1.0 [facility] Comment on above: Order Comment: No: D o not add to previous draw Performed By: #### 0 0121, 34746, 61190 #### [facility] [address] [place] [address], [place] Calcium [Mass/Vol] 9.4 mg/dL Normal 8.6-10.3 [facility] Comment on above: Order Comment: No: D o not add to previous draw Performed By: #### 0 0121, 91982, 50535 #### [facility] [address] [place] [address], [place] Chloride [Moles/Vol] 100 mmol/L Normal 98-107 [facility] Comment on above: Order Comment: No: D o not add to previous draw Performed By: #### 0 0121, 38766, 89960 #### [facility] [address] [place] [address], [place] CO2 [Moles/Vol] 29 mmol/L Normal 21-31 [facility] Comment on above: Order Comment: No: D o not add to previous draw Performed By: #### 0 0121, 99194, 78683 #### [facility] [address] [place] [address], [place] Creatinine [Mass/Vol] 1.04 mg/dL Normal 0.60-1.20 [facility] Comment on above: Order Comment: No: D o not add to previous draw Performed By: #### 0 0121, 46284, 52682 #### [facility] [address] [place] [address], [place] eGFR- non- 54 ml/min/1.73sq m Abnormal >60 [facility] Comment on above: Order Comment: No: D o not add to previous draw Performed By: #### 0 0121, 69566, 74944 #### [facility] [address] [place] [address], [place] GFR/1.73 sq M.predicted among blacks MDRD (S/P/Bld) [Vol rate/Area] mL/min/{1.73_m2} Normal >60 [facility] Comment on above: Order Comment: No: D o not add to previous draw Performed By: #### 0 0121, 96308, 54925 #### [facility] [address] [place] [address], [place] Glucose [Mass/Vol] 239 mg/dL High 70-100 [facility] Comment on above: Order Comment: No: D o not add to previous draw Performed By: #### 0 0121, 90050, 30276 #### [facility] [address] [place] [address], [place] Potassium [Moles/Vol] 4.3 mmol/L Normal 3.5-5.1 [facility] Comment on above: Order Comment: No: D o not add to previous draw Performed By: #### 0 0121, 31278, 79337 #### [facility] [address] [place] [address], [place] Protein [Mass/Vol] 5.6 g/dL Low 6.0-8.3 [facility] Comment on above: Order Comment: No: D o not add to previous draw Performed By: #### 0 0121, 61097, 29570 #### [facility] [address] [place] [address], [facility] Sodium [Moles/Vol] 139 mmol/L Normal 136-145 [facility] Comment on above: Order Comment: No: D o not add to previous draw Performed By: #### 0 0121, 37660, 92242 #### [facility] [address] [place] [address], [facility] Urea nitrogen [Mass/Vol] 24 mg/dL Normal 7-25 [facility] Comment on above: Order Comment: No: D o not add to previous draw Performed By: #### 0 0121, 13258, 76336 #### [facility] [address] [place] [address], [facility] MAGNESIUM BLOODon 11-01-2021 Magnesium [Mass/Vol] 2.0 mg/dL Normal 1.9-2.7 [facility] Comment on above: Order Comment: No: D o not add to previous draw Performed By: #### 0 0121, 26361, 14679 #### [facility] [address] [place] [address], [facility] PROF 14(COMP METB)on 022 Albumin [Mass/Vol] 3.1 g/dL Critically low 3.4-5.0 [facility] Comment on above: Performed By: #### C MP, BNP, HSTROPN ####[facility] [address] [place] [address]Dr. Nahed Yañez Albumin/Globulin [Mass ratio] 1.0 {ratio} Normal [facility] Comment on above: Performed By: #### C MP, BNP, HSTROPN ####[facility] R[address]cuielss[address] [place] [address]Dr. Nahed Yañez ALP [Catalytic activity/Vol] 56 U/L Normal 46-116 [facility] Comment on above: Performed By: #### C MP, BNP, HSTROPN ####[facility] Hjvei[address]ttg[address] [place] [address]Dr. Nahed Yañez ALT [Catalytic activity/Vol] 19 U/L Normal 14-59 [facility] Comment on above: Performed By: #### C MP, BNP, HSTROPN ####[facility] Urtf[address] [place] [address]Dr. Nahed Yañez Anion gap [Moles/Vol] 14.3 mmol/L Normal Th e [facility] Comment on above: Performed By: #### C MP, BNP, HSTROPN ####[facility] Hv[address] [place], [place] [address]Dr. Nahed Yañez AST [Catalytic activity/Vol] 18 U/L Normal 15-37 [facility] Comment on above: Performed By: #### C MP, BNP, HSTROPN ####[facility] Whf[address] [place], [place] [address]Dr. Nahed Yañez Bilirubin [Mass/Vol] 0.4 mg/dL Normal 0.2-1.0 [facility] Comment on above: Performed By: #### C MP, BNP, HSTROPN ####[facility] G[address] [place], [place] [address]Dr. Nahed Yañez Calcium [Mass/Vol] 9.3 mg/dL Normal 8.5-10.1 [facility] Comment on above: Performed By: #### C MP, BNP, HSTROPN ####[facility] [address] [place] [address]Dr. Nahed Yañez Chloride [Moles/Vol] 102 mmol/L Normal 98-107 [facility] Comment on above: Performed By: #### C MP, BNP, HSTROPN ####[facility] Yurxe[address] [place], [place] [address]Dr. Nahed Yañez CO2 [Moles/Vol] 27.1 mmol/L Normal 21.0-32.0 [facility] Comment on above: Performed By: #### C MP, BNP, HSTROPN ####[facility] [address]tx[address] [place] [address]Dr. Nahed Yañez Creatinine [Mass/Vol] 1.25 mg/dL Critically high 0.55-1.02 [facility] Comment on above: Performed By: #### C MP, BNP, HSTROPN ####[facility] [address] [place] [address]Dr. Nahed Yañez EGFR-AF [place] 53 mL/min/1.73m2 Critically low >=60 [facility] Comment on above: Performed By: #### C MP, BNP, HSTROPN ####[facility] [address] [place] [address]Dr. Nahed Yañez EGFR-NON AF [place] 44 mL/min/1.73m2 Critically low >=60 [facility] Comment on above: Performed By: #### C MP, BNP, HSTROPN ####[facility] [address] [place] [address]Dr. Nahed Yañez Globulin (S) [Mass/Vol] 3.2 g/dL Normal [facility] Comment on above: Performed By: #### C MP, BNP, HSTROPN ####[facility] Ddx[address]arv[address] [place] [address]Dr. Nahed Yañez Glucose [Mass/Vol] 248 mg/dL Critically high 74-106 [facility] Comment on above: Performed By: #### C MP, BNP, HSTROPN ####[facility] [address] [place] [address]Dr. Nahed Yaeñz Potassium [Moles/Vol] 3.4 mmol/L Critically low 3.5-5.1 [facility] Comment on above: Performed By: #### C MP, BNP, HSTROPN ####[facility] Zkb[address]uybod[address] [place] [address]Dr. Rosemarielan Yañez Protein [Mass/Vol] 6.3 g/dL Critically low 6.4-8.2 [facility] Comment on above: Performed By: #### C MP, BNP, HSTROPN ####[facility] Xpxxvltkml[address] [place] [address]Dr. Nahed Yañez Sodium [Moles/Vol] 140 mmol/L Normal 136-145 [facility] Comment on above: Performed By: #### C MP, BNP, HSTROPN ####[facility] [address]sw[address] [place], [place] [address]Zy. Nahed Yañez Urea nitrogen [Mass/Vol] 18.0 mg/dL Normal 7.0-18.0 [facility] Comment on above: Performed By: #### C MP, BNP, HSTROPN ####[facility] [address]60[address] [place], [place] [address]Pi. Nahed Yañez Urea nitrogen/Creatinine [Mass ratio] 14.4 mg/mg Normal [facility] Comment on above: Performed By: #### C MP, BNP, HSTROPN ####[facility] [address] [place], [place] [address]Ho. Nahed Yañez PROTHROMBIN TIMEon 2 INR Coag (PPP) [Relative time] 1.06 {INR} Normal 0.91-1.16 [facility] Comment on above: Order Comment: No: [...] 1995;108:[id number]. Performed By: #### 5 6101 #### [facility] [address] [facility] PT Coag (PPP) [Time] 13.8 s Normal 12.3-14.8 [facility] Comment on above: Order Comment: No: D o not add to previous draw Result Comment: ALL RESULTS MUST BE INTERPRETED WITH RESPECT TO BLOOD DRAWING ARTIFACT OR DILUTION ERROR OF ANTICOAGULANT AT THE TIME OF SAMPLING. Performed By: #### 5 6101 #### [facility] [address] [place] [address], [facility] TROPONIN, HIGH SENSITIVITYon 11-01-2021 HSTROP 1684.4 pg/mL Critically high 4.0-51.3 [facility] Comment on above: Result Comment: CUT- OFF POINTS HAVE BEEN ESTABLISHED BASED ON THE FOURTH UNIVERSAL DEFINITIONS OF MYOCARDIALINFARCTION. THE UPPER REFERENCE LIMIT (URL) OF TROPONIN, DEFINED THE 99TH PERCENTILE OFcTnI DISTRIBUTION IN A REFERENCE POPULATION, HAS BEEN CONFIRMED THE DECISION THRESHOLDFOR AL DIAGNOSIS. Performed By: #### C MP, BNP, HSTROPN ####[facility] B[address]bs[address]pa[address] [place] [address]DrShaun Yañez TROPONIN-Ion 11-01-2021 Troponin I.cardiac [Mass/Vol] 0.22 ng/mL Critically high 0.00-0.04 [facility] Comment on above: Order Comment: No: D o not add to previous draw Result Comment: M-TR OPONIN INITIAL CRITICAL HIGH; RESPUN AND RETESTED M-CRITICAL RESULT(S) REVIEWED, CALLED TO AND READ BACK BY Kathy Suárez RN at 2205. REFERENCE RANGES: 0.00 - 0.04 ng/ml NORMAL 0.05 - 0.50 ng/ml INDETERMINATE > 0.50 ng/ml CONSISTENT WITH AN M.I. Performed By: #### 0 0121, 17975, 41377 #### [facility] [address] [place] [address], [facility] UFH HEPARIN ASSAYon 11-02-19 22 UNFRACTIONATED HEPARIN 0.55 IU/mL Normal 0.30-0.70 [facility] Comment on above: Result Comment: Clare roxaban and Apixaban will interfere with the anti Xa assay used to monitor UFH and LMWH. Performed By: #### 3 5200, 31841 #### [facility] [address] [place] [address], [facility] BLOOD GASES BTYon 10-31-2021 02 MODE ROOM AIR Normal [facility] Comment on above: Performed By: #### A BG ####[facility] [address] [place] [address]Dr. Nahed Yañez ALLENS TEST Positive Normal [facility] Comment on above: Performed By: #### A BG ####[facility] [address] [place] [address]Dr. Nahed Yañez Base excess Calc (Bld) [Moles/Vol] 3.5 mmol/L Critically high -2.0-2.0 [facility] Comment on above: Performed By: #### A BG ####[facility] Yhcsfe[address] [place], [place] [address]Dr. Nahed Yañez BIPAP PRESSURE Normal [facility] Comment on above: Performed By: #### A BG ####[facility] Kav[address]yszr[address] [place], [place] [address]Dr. Nahed Yañez CO2 [Moles/Vol] 56.3 mmol/L Critically high 23.0-28.0 [facility] Comment on above: Performed By: #### A BG ####[facility] Edlkrctucq[address] [place], [place] [address]Dr. Nahed Yañez CPAP Normal [facility] Comment on above: Performed By: #### A BG ####[facility] [address] [place], [place] [address]Dr. Nahed Yañez FIO2 Normal [facility] Comment on above: Performed By: #### A BG ####[facility] Qclhokkgnt[address] [place], [place] [address]Dr. Nahed Yañez HCO3 (Bld) [Moles/Vol] 26.8 mmol/L Critically high 22.0-26 .0 [facility] Comment on above: Performed By: #### A BG ####[facility] [address]plwvyq[address]qc[address] [place], [place] [address]Dr. Nahed Yañez LPM Normal [facility] Comment on above: Performed By: #### A BG ####[facility] B[address]zunxoso[address] [place] [address]Dr. Nahed Yañez MINUTE VOLUME Normal [facility] Comment on above: Performed By: #### A BG ####[facility] Hyeiuaobbc6[address] [place] [address]Dr. Nahed Yañez Oxygen (Bld) [Partial pressure] 51.8 mm[Hg] Critically low 80.0-100.0 [facility] Comment on above: Performed By: #### A BG ####[facility] Vmwrykxlmo[address] [place], [place] [address]Dr. Nahed Yañez Oxygen saturation in Blood 86.3 % Critically low 95.0-100.0 [facility] Comment on above: Performed By: #### A BG ####[facility] Sky[address] [place], [place] [address]Dr. Nahed Yañez PCO2 43.8 mmHg Normal 35.0-45.0 [facility] Comment on above: Performed By: #### A BG ####[facility] Cemitrhmeg[address] [place], [place] [address]Dr. Nahed Yañez PEEP [facility] Comment on above: Performed By: #### A BG ####[facility] Tradbpt[address]dc[address] [place], [place] [address]Dr. Nahed Yañez pH (Bld) 7.415 [pH] Normal 7.350-7.450 [facility] Comment on above: Performed By: #### A BG ####[facility] [address] [place], [place] [address]Dr. Nahed Yañez PIP Normal [facility] Comment on above: Performed By: #### A BG ####[facility] Xxzdciznmd[address] [place], [place] [address]Dr. Nahed Yañez PS Normal [facility] Comment on above: Performed By: #### A BG ####[facility] Axmyinzupa[address] [place] [address]Dr. Nahed Yañez PUNCTURE SITE RR Normal [facility] Comment on above: Performed By: #### A BG ####[facility] Htwmyvqyty64[address] [place] [address]Dr. Nahed Yañez RATE Normal [facility] Comment on above: Performed By: #### A BG ####[facility] Ulpkxwfddo36[address] [place] [address]Dr. Nahed Yañez VENT MODE Normal [facility] Comment on above: Performed By: #### A BG ####[facility] Upcbxfgqrp7[address] [place] [address]Dr. Nahed Yañez VT Normal [facility] Comment on above: Performed By: #### A BG ####[facility] Pinmpjlbyu55[address] [place] [address]Dr. Nahed Yañez BNPon 2 Natriuretic peptide B (Bld) [Mass/Vol] 57605.0 pg/mL Critically high <=900.0 [facility] Comment on above: Performed By: #### T 4, TSH, BNP, CMADM ####[facility] Ktbxummaep[address] [place], [place] [address]Dr. Nahed Yañez CARDIAC FRNACISCO 3-6on 2 CK [Catalytic activity/Vol] 91 U/L Normal 26-192 [facility] Comment on above: Performed By: #### C MREP ####[facility] Avsecfpxrf[address] [place], [place] [address]Dr. Nahed Yañez CK.MB [Mass/Vol] 7.32 ng/mL Critically high <=3.60 [facility] Comment on above: Result Comment: test repeated critical value verified Performed By: #### C MREP ####[facility] Cnpfqxnhyt[address] [place], [place] [address]Dr. Nahed Yañez HSTROP 2823.1 pg/mL Critically high 4.0-51.3 [facility] Comment on above: Result Comment: CUT- OFF POINTS HAVE BEEN ESTABLISHED BASED ON THE FOURTH UNIVERSAL DEFINITIONS OF MYOCARDIALINFARCTION. THE UPPER REFERENCE LIMIT (URL) OF TROPONIN, DEFINED THE 99TH PERCENTILE OFcTnI DISTRIBUTION IN A REFERENCE POPULATION, HAS BEEN CONFIRMED THE DECISION THRESHOLDFOR AL DIAGNOSIS.test repeated critical value verified Performed By: #### C MREP ####[facility] Rqeytxawxg[address] [place] [id number]. Nahed Yañez CARDIAC FRANCISCO ADMITon 022 CK [Catalytic activity/Vol] 85 U/L Normal 26-192 [facility] Comment on above: Performed By: #### T 4, TSH, BNP, CMADM ####[facility] Fwmpt[address]wucz[address] [place] [id number]. Rosemarieashley Yañez CK.MB [Mass/Vol] 6.44 ng/mL Critically high <=3.60 [facility] Comment on above: Performed By: #### T 4, TSH, BNP, CMADM ####[facility] Gvjtngqcpq[address] [place] [address]Dr. Nahed Otilio HSTROP 3194.8 pg/mL Critically high 4.0-51.3 [facility] Comment on above: Result Comment: CUT- OFF POINTS HAVE BEEN ESTABLISHED BASED ON THE FOURTH UNIVERSAL DEFINITIONS OF MYOCARDIALINFARCTION. THE UPPER REFERENCE LIMIT (URL) OF TROPONIN, DEFINED THE 99TH PERCENTILE OFcTnI DISTRIBUTION IN A REFERENCE POPULATION, HAS BEEN CONFIRMED THE DECISION THRESHOLDFOR AL DIAGNOSIS. Performed By: #### T 4, TSH, BNP, CMADM ####[facility] [address]is[address]wgbg[address] [place] [address]Dr. Rosemarieashley Yañez ANDRE 57 ng/mL Normal 9-82 [facility] Comment on above: Performed By: #### T 4, TSH, BNP, CMADM ####[facility] Lfxzqcaovj[address] [place] [address]Dr. Nahed Otilio CBC AUTO DIFFon 10-31-2021 BASO # 0.0 103/ul Normal 0.0-0.1 [facility] Comment on above: Performed By: #### C BC ####[facility] Eks[address]dvtei35[address] [place] [address]Dr. Rosemarieashley Yañez Basophils/100 WBC (Bld) 0.2 % Normal 0.2-2.0 [facility] Comment on above: Performed By: #### C BC ####[facility] Tfywamfbdz80[address] [place] [address]Dr. Nahed Yañez EO # 0.0 103/ul Normal 0.0-0.7 [facility] Comment on above: Performed By: #### C BC ####[facility] Vezim[address]aksj[address] [place] [address]Dr. Nahed Yañez Eosinophils/100 WBC (Bld) 0.1 % Critically low 0.9-7.0 [facility] Comment on above: Performed By: #### C BC ####[facility] Zwgdkwjtjv[address] [place], [place] [address]Dr. Nahed Otilio Erythrocyte distribution width (RBC) [Ratio] 14.8 % Normal 11.0-15.0 [facility] Comment on above: Performed By: #### C BC ####[facility] Anf[address]wsjhl[address] [place], [place] [address]Dr. Nahed Yañez Hematocrit (Bld) [Volume fraction] 44.4 % Normal 36.0-48.0 [facility] Comment on above: Performed By: #### C BC ####[facility] Bwybvkhufg[address] [place], [place] [address]Dr. Nahed Yañez Hemoglobin (Bld) [Mass/Vol] 14.1 g/dL Normal 12.0-16.0 [facility] Comment on above: Performed By: #### C BC ####[facility] Jwtskcuxyk[address] [place], [place] [address]Dr. Rosemarieashley Otilio IG # 0.04 10e3/ul Critically high 0.00-0.03 [facility] Comment on above: Performed By: #### C BC ####[facility] U[address]atmfste[address] [place], [place] [address]Dr. Nahed Yañez IG % 0.3 % Normal 0.0-0.5 [facility] Comment on above: Performed By: #### C BC ####[facility] Vhojghrajo[address] [place], [place] [address]Dr. Nahed Yañez LYMPH # 1.4 103/ul Normal 1.2-3.8 [facility] Comment on above: Performed By: #### C BC ####[facility] Hawjbpzmyx[address] [place], [place] [address]Dr. Nahed Yañez Lymphocytes/100 WBC (Bld) 10.4 % Critically low 20.5-60.0 [facility] Comment on above: Performed By: #### C BC ####[facility] Ghgvunsrou1492 [place] [address]DrShaun Yañez MANUAL DIFF REQ NO Normal [facility] Comment on above: Performed By: #### C BC ####[facility] Feclvudhwv5490 [place] [address]DrShaun Yañez MCH (RBC) [Entitic mass] 28.1 pg Normal 26.7-34.0 [facility] Comment on above: Performed By: #### C BC ####[facility] Gmaakikcoy[address] [place], [place] [address]DrShaun Yañez MCHC (RBC) [Mass/Vol] 31.8 g/dL Normal 29.9-35.2 [facility] Comment on above: Performed By: #### C BC ####[facility] Coomioeehz[address] [place], [place] [address]DrShaun Yañez MCV (RBC) [Entitic vol] 88.4 fL Normal 81.0-99.0 [facility] Comment on above: Performed By: #### C BC ####[facility] Zucwfgdhmi[address] [place], [place] [address]DrShaun Yañez MONO # 0.8 103/ul Normal 0.3-0.8 [facility] Comment on above: Performed By: #### C BC ####[facility] Fmtovsvqta[address] [place], [place] [address]DrShaun Yañez Monocytes/100 WBC (Bld) 6.0 % Normal 1.7-12.0 [facility] Comment on above: Performed By: #### C BC ####[facility] Cddjdkfucn[address] [place], [place] [address]DrShaun Yañez NEUT # 10.9 103/ul Critically high 1.4-6.5 [facility] Comment on above: Performed By: #### C BC ####[facility] Ipkebeticm[address] [place], [place] [address]DrShaun Yañez Neutrophils/100 WBC (Bld) 83.0 % Critically high 43.0-75.0 [facility] Comment on above: Performed By: #### C BC ####[facility] Itpavnkvpe6463 [place] [address]Dr. Nahed Yañez Platelet mean volume (Bld) [Entitic vol] 10.8 fL Normal 9.5-13.5 [facility] Comment on above: Performed By: #### C BC ####[facility] [address] [place], [place] [address]Dr. Rosemarieashley Yañez PLT 402 103/ul Normal 150-450 [facility] Comment on above: Performed By: #### C BC ####[facility] Stolpptocn[address] [place], [place] [address]Dr. Rosemarieashley Yañez RBC 5.02 106/ul Normal 4.20-5.40 [facility] Comment on above: Performed By: #### C BC ####[facility] Ruhxxqgbfo[address] [place], [place] [address]Dr. Nahed Yañez WBC 13.1 103/ul Critically high 4.0-11.0 [facility] Comment on above: Performed By: #### C BC ####[facility] Anmmcegwku[address] [place], [place] [address]Dr. Nahed Yañez CTA CHEST WO W CONon 022 CTA CHEST WO W CON Normal [facility] CULTURE BLOODon 10-31-2021 Microscopic examination of blood, culture Culture Observations: NO GROWTH AT 5 DAYS. Normal [facility] Comment on above: Performed By: #### B LDCX2 ####[facility] [address] [place], [place] [id number]. Nahed Yañez Microscopic examination of blood, culture Culture Observations: NO GROWTH AT 5 DAYS. Normal [facility] Comment on above: Performed By: #### B LDCX1 ####[facility] Xtqyjfnuqt[address] [place], [place] [address]Dr. Nahed Yañez Covid-19 PCR (CVDTB)on 10-13 SARS-CoV-2 (COVID-19) RNA MIRNA+probe Ql (Unsp spec) Not detected Normal NOT DETECTED [facility] Comment on above: Result Comment: When diagnostic [...] for this test is supported by the [place] of Health and Human Service's declaration that [...] longer be used). Performed By: #### Isabell VDPETER [facility] ####[facility] Bziurvcxsq[address] [place], [place] [address]Dr. Nahed Yañez ECHO LIMITED STUDYon 022 ECHO LIMITED STUDY Normal [facility] ER URINE PROFILEon 2 Bilirubin Ql (U) SMALL Abnormal NEGATIVE [facility] Comment on above: Performed By: #### YARELIS DOVE ####[facility] Xedeafpokt[address] [place], [place] [address]Dr. Nahed Yañez Clarity (U) CLEAR Normal CLEAR [facility] Comment on above: Performed By: #### YARELIS DOVE ####[facility] Aovelfvwtz[address] [place], [place] [address]Dr. Nahed Yañez Color (U) YELLOW Normal YELLOW [facility] Comment on above: Performed By: #### YARELIS DOVE ####[facility] Gylchrhlpw[address] [place], [place] [address]Dr. Nahed Yañez ERUAHD A micrscopic examination will be performed if indicated. Normal [facility] Comment on above: Performed By: #### YARELIS DOEV ####[facility] Mjxnqxrhgd9[address] [place], [place] [address]Dr. Nahed Yañez Glucose Ql (U) Negative Normal NEGATIVE [facility] Comment on above: Performed By: #### Isidoro ALCARAZ UMICRO ####[facility] Nwkojtvllk[address] [place], [place] [address]Dr. Nahed Yañez Hemoglobin Ql (U) TRACE-INTACT Abnormal NEGATIVE [facility] Comment on above: Performed By: #### Isidoro ALCARAZ UMICRO ####[facility] Sxargjdmvx6024[address] [place], [place] [address]Dr. Nahed Yañez Ketones Ql (U) 15 mg/dl Abnormal NEGATIVE [facility] Comment on above: Performed By: #### Isidoro ALCARAZ UMICRO ####[facility] Lcgiwcylre575[address] [place], [place] [address]Dr. Nahed Yañez LEUKOCYTES TRACE Abnormal NEGATIVE [facility] Comment on above: Performed By: #### Isidoro ALCARAZ UMICRO ####[facility] Xkoblhoqqx220[address] [place], [place] [address]Dr. Nahed Yañez Nitrite Ql (U) Negative Normal NEGATIVE [facility] Comment on above: Performed By: #### Isidoro ALCARAZ UMICRO ####[facility] Guubgmovwm964[address] [place], [place] [address]Dr. Nahed Yañez pH (U) 6.5 [pH] Normal 5-9 [facility] Comment on above: Performed By: #### Isidoro ALCARAZ UMICRO ####[facility] Dymxbqztve94[address] [place], [place] [address]Dr. Nahed Yañez Protein (U) [Mass/Vol] 30 mg/dL Abnormal NEGAT JOSEPHINE/ TRACE [facility] Comment on above: Performed By: #### Isidoro ALCARAZ UMICRO ####[facility] Wayibqgctl938[address] [place], [place] [address]Dr. Nahed Yañez SPEC GRAVITY 1.025 Normal 1.005-<=1.02 5 [facility] Comment on above: Performed By: #### Isidoro ALCARAZ UMICRO ####[facility] Xkyhhaazka[address] [place], [place] [address]Dr. Nahed Yañez UR MICRO IND INDICATED Normal [facility] Comment on above: Performed By: #### YARELIS DOVE ####[facility] Pnwjoqjtvv61970[address] [place], [place] [address]Dr. Nahed Yañez Urobilinogen Qn (U) 0.2 {Alem'U}/dL Normal 0.2 - 1. 0 [facility] Comment on above: Performed By: #### YARELIS DOVE ####[facility] Fpghqigrrr[address] [place], [place] [address]Dr. Nahed Yañez INFLUENZA A AND B AGon 10-31 INFLUANEGH SEE BELOW Normal [facility] Comment on above: Result Comment: Nega tive for Flu A protein angiten. Infection due to Flu A cannot be ruled out. Flu A angiten in the sample may be below the detection limit of the test. Performed By: #### I NFLUAB ####[facility] Jgzbkmrcwi95340[address] [place], [place] [address]Dr. Nahed Yañez INFLUBNEGH SEE BELOW Normal [facility] Comment on above: Result Comment: Nega tive for Flu B protein antigen. Infection due to Flu B cannot be ruled out. Flu B antigen in the sample may be below the detection limit of the test. Performed By: #### I NFLUAB ####[facility] Uaaoaudtoo9[address] [place], [place] [address]Dr. Nahed Yañez INFLUENZA A AG Negative Normal NEGATIVE SEE COMMENT [facility] Comment on above: Performed By: #### I NFLUAB ####[facility] Vnkdtgqqgy559[address] [place], [place] [address]Dr. Nahed Yañez INFLUENZA B AG Negative Normal NEGATIVE SEE COMMENT [facility] Comment on above: Performed By: #### I NFLUAB ####[facility] Hhzfrulkzg65350[address] [place], [place] [address]Dr. Nahed Yañez INTERNAL CONTROLS Within Normal Limits Normal Wi thin Normal Limits [facility] Comment on above: Performed By: #### I NFLUAB ####[facility] Grdnjiebnd604[address] [place], [place] [address]Dr. Nahed Yañez LACTATE/LACTIC ACIDon 2021 Lactate [Moles/Vol] 1.3 mmol/L Normal 0.4-1.9 [facility] Comment on above: Performed By: #### L ACT ####[facility] Jrgxqcqpkk3629[address] [place], [place] [address]Dr. Nahed Yañez PROF 14(COMP METB)on 022 Albumin [Mass/Vol] 4.3 g/dL Normal 3.4-5.0 [facility] Comment on above: Performed By: #### C MP ####[facility] Twhpklsahi[address] [place], [place] [address]Dr. Nahed Yañez Albumin/Globulin [Mass ratio] 1.2 {ratio} Normal [facility] Comment on above: Performed By: #### C MP ####[facility] Obpqydvzih629[address] [place], [place] [address]Dr. Nahed Yañez ALP [Catalytic activity/Vol] 77 U/L Normal 46-116 [facility] Comment on above: Performed By: #### C MP ####[facility] Kyhmwlkknt2037[address] [place], [place] [address]Dr. Nahed Yañez ALT [Catalytic activity/Vol] 25 U/L Normal 14-59 [facility] Comment on above: Performed By: #### C MP ####[facility] Hzwkyfifio839[address] [place], [place] [address]Dr. Nahed Yañez Anion gap [Moles/Vol] 15.6 mmol/L Normal [facility] Comment on above: Performed By: #### C MP ####[facility] Igbfsvqeaj734[address] [place], [place] [address]Dr. Nahed Yañez AST [Catalytic activity/Vol] 26 U/L Normal 15-37 [facility] Comment on above: Performed By: #### C MP ####[facility] Oquuzclqrm[address] [place], [place] [address]Dr. Nahed Yañez Bilirubin [Mass/Vol] 0.6 mg/dL Normal 0.2-1.0 [facility] Comment on above: Performed By: #### C MP ####[facility] Rdpblhxuhd737[address] [place], [place] [address]Dr. Nahed Yañez Calcium [Mass/Vol] 10.0 mg/dL Normal 8.5-10.1 [facility] Comment on above: Performed By: #### C MP ####[facility] [address] [place] [address]Dr. Nahed Yañez Chloride [Moles/Vol] 101 mmol/L Normal 98-107 [facility] Comment on above: Performed By: #### C MP ####[facility] Bxnxgiwxdj[address] [place] [address]Dr. Nahed Yañez CO2 [Moles/Vol] 29.0 mmol/L Normal 21.0-32.0 [facility] Comment on above: Performed By: #### C MP ####[facility] Kaseapktyq24[address] [place], [place] [address]Dr. Nahed Yañez Creatinine [Mass/Vol] 0.89 mg/dL Normal 0.55-1.02 [facility] Comment on above: Performed By: #### C MP ####[facility] Xtipnucepq037[address] [place], [place] [address]Dr. Nahed Yañez EGFR-AF [place] >60 Normal >=60 [facility] Comment on above: Performed By: #### C MP ####[facility] Inpcfwywgt086[address] [place], [place] [address]Dr. Nahed Yañez EGFR-NON AF [place] >60 Normal >=60 [facility] Comment on above: Performed By: #### C MP ####[facility] Ulxrq[address]qep36[address] [place] [address]Dr. Nahed Yañez Globulin (S) [Mass/Vol] 3.7 g/dL Normal [facility] Comment on above: Performed By: #### C MP ####[facility] K[address]qmoz[address] [place] [address]Dr. Nahed Otilio Glucose [Mass/Vol] 182 mg/dL Critically high 74-106 [facility] Comment on above: Performed By: #### C MP ####[facility] Cescvvlkcg7[address] [place] [address]Dr. Nahed Yañez Potassium [Moles/Vol] 3.6 mmol/L Normal 3.5-5.1 [facility] Comment on above: Performed By: #### C MP ####[facility] Aq[address]by[address] [place] [address]Dr. Nahed Yañez Protein [Mass/Vol] 8.0 g/dL Normal 6.4-8.2 [facility] Comment on above: Performed By: #### C MP ####[facility] A[address]jjj26[address] [place] [address]Dr. Nahed Yañez Sodium [Moles/Vol] 142 mmol/L Normal 136-145 [facility] Comment on above: Performed By: #### C MP ####[facility] Nxrjzmztye7983 [place] [address]Dr. Nahed Yañez Urea nitrogen [Mass/Vol] 8.0 mg/dL Normal 7.0-18.0 [facility] Comment on above: Performed By: #### C MP ####[facility] Hnclwgdwbp923[address] [place], [place] [address]Dr. Nahed Yañez Urea nitrogen/Creatinine [Mass ratio] 9.0 mg/mg Normal [facility] Comment on above: Performed By: #### C MP ####[facility] Ds[address]deuc[address] [place] [address]Dr. Nahed Yañez T4on 10-31-2021 T4 [Mass/Vol] 8.10 ug/dL Normal 4.80-13.90 [facility] Comment on above: Performed By: #### T 4, TSH, BNP, CMADM ####[facility] Z[address]peexb[address] [place] [address]Dr. Nahed Yañez TSHon 10-31-2021 TSH 1.088 uIU/mL Normal 0.358-3.740 [facility] Comment on above: Performed By: #### T 4, TSH, BNP, CMADM ####[facility] [address]ubfznkpst[address] [place] [address]Dr. Nahed Yañez URINE MICROSCOPIC ONLYon BACTERIA TRACE Abnormal NONE SEEN [facility] Comment on above: Performed By: #### E YARELIS ALCARAZ ####[facility] [address]rme[address] [place] [address]Dr. Nahed Yañez Bacteria identified Cx Nom (U) NOT INDICATED Normal [facility] Comment on above: Performed By: #### YARELIS DOVE ####[facility] Sewzkicjuu254[address] [place], [place] [address]Dr. Nahed Yañez CAST NONE SEEN Normal NONE SEEN [facility] Comment on above: Performed By: #### NUNU DOVERO ####[facility] Qwwippvalo[address] [place], [place] [address]Dr. Nahed Yañez Crystals LM Nom (Urine sed) NONE SEEN Normal NONE SEEN [facility] Comment on above: Performed By: #### YARELIS DOVE ####[facility] Xhalpmjwmn455[address] [place], [place] [address]Dr. Nahed Yañez Epithelial cells LM Ql (Urine sed) MODERATE Abnormal NONE SEEN /RARE [facility] Comment on above: Performed By: #### NUNU DOVERO ####[facility] Evicphhnfm[address] [place], [place] [address]Dr. Nahed Yañez MUCOUS SMALL Abnormal NONE SEEN [facility] Comment on above: Performed By: #### NUNU DOVERO ####[facility] Qpyyrnstqy64360[address] [place], [place] [address]Dr. Nahed Yañez RBC 2-5 Abnormal 0-2 [facility] Comment on above: Performed By: #### NUNU DOVERO ####[facility] Gufybuovia[address] [place], [place] [address]Dr. Nahed Yañez WBC 2-5 Abnormal NONE SEEN [facility] Comment on above: Performed By: #### NUNU DOVERO ####[facility] Befvljbsgk7[address] [place], [place] [address]Dr. Nahed Yañez XR CHEST 2 Von 10-31-2021 XR CHEST 2 V Normal [facility] CULTURE URINEon 10-30-2021 CULTURE URINE Culture Observations : MODERATE GROWTH OF MIXED GENITAL MIGUEL. NO POTENTIAL PATHOGENS SEEN. Normal [facility] Comment on above: Performed By: #### U RCX ####[facility] [address] [place] [address]. Nahed Yañez US JESSEE DOP LEG BILon US JESSEE DOP LEG MOHAN Normal [facility] CARDIAC FRANCISCO ADMITon 022 CK [Catalytic activity/Vol] 16 U/L Critically low 26-192 [facility] Comment on above: Performed By: #### C RENZO, CMADM ####[facility] Lnhbt[address]qfi20[address] [place] [address]Dr. Nahed Yañez CK.MB [Mass/Vol] 0.56 ng/mL Normal <=3.60 [facility] Comment on above: Performed By: #### C RENZO, ERICK ####[facility] Kjlkihozhm5[address] [place] [address]Dr. Nahed Yañez HSTROP 44.3 pg/mL Normal 4.0-51.3 [facility] Comment on above: Result Comment: CUT- OFF POINTS HAVE BEEN ESTABLISHED BASED ON THE FOURTH UNIVERSAL DEFINITIONS OF MYOCARDIALINFARCTION. THE UPPER REFERENCE LIMIT (URL) OF TROPONIN, DEFINED THE 99TH PERCENTILE OFcTnI DISTRIBUTION IN A REFERENCE POPULATION, HAS BEEN CONFIRMED THE DECISION THRESHOLDFOR AL DIAGNOSIS. Performed By: #### C ERICK MULLER ####[facility] Dxniaynujp3[address] [place] [address]Dr. Nahed Yañez ANDRE 42 ng/mL Normal 9-82 [facility] Comment on above: Performed By: #### C RENZO, GRISELDADM ####[facility] Ysmvbetglw4475 [place] [address]Dr. Nahed Yañez CBC AUTO DIFFon 09-07-2021 BASO # 0.0 103/ul Normal 0.0-0.1 [facility] Comment on above: Performed By: #### C BC ####[facility] Eftmdgkhju[address] [place] [address]Dr. Nahed Yañez Basophils/100 WBC (Bld) 0.4 % Normal 0.2-2.0 [facility] Comment on above: Performed By: #### C BC ####[facility] Sfritwxkch6492 [place] [address]Dr. Nahed Yañez EO # 0.2 103/ul Normal 0.0-0.7 [facility] Comment on above: Performed By: #### C BC ####[facility] Didwfvsqav9869 [place] [address]Dr. Nahed Yañez Eosinophils/100 WBC (Bld) 2.4 % Normal 0.9-7.0 [facility] Comment on above: Performed By: #### C BC ####[facility] Khbnqhasqn1609 [place] [address]Dr. Nahed Yañez Erythrocyte distribution width (RBC) [Ratio] 15.1 % Critically high 11.0-15.0 [facility] Comment on above: Performed By: #### C BC ####[facility] Qolswshkdh0225[address] [place], [place] [address]Dr. Nahed Yañez Hematocrit (Bld) [Volume fraction] 42.6 % Normal 36.0-48.0 [facility] Comment on above: Performed By: #### C BC ####[facility] Qjgkyfvbzi825[address] [place], [place] [address]Dr. Nahed Yañez Hemoglobin (Bld) [Mass/Vol] 13.4 g/dL Normal 12.0-16.0 [facility] Comment on above: Performed By: #### C BC ####[facility] Grjvkqeruy[address] [place], [place] [address]Dr. Nahed Yañez IG # 0.33 10e3/ul Critically high 0.00-0.03 [facility] Comment on above: Performed By: #### C BC ####[facility] Dsnykxwtha[address] [place], [place] [address]Dr. Nahed Yañez IG % 3.9 % Critically high 0.0-0.5 [facility] Comment on above: Performed By: #### C BC ####[facility] Jejqzfzejx158[address] [place], [place] [address]Dr. Nahed Yañez LYMPH # 2.6 103/ul Normal 1.2-3.8 [facility] Comment on above: Performed By: #### C BC ####[facility] Cwoosmhdgw294[address] [place], [place] [address]Dr. Nahed Yañez Lymphocytes/100 WBC (Bld) 30.3 % Normal 20.5-60.0 [facility] Comment on above: Performed By: #### C BC ####[facility] Eelxgjfllh3416 [place] [address]DrShaun Yañez MANUAL DIFF REQ NO Normal [facility] Comment on above: Performed By: #### C BC ####[facility] Qqpjnvsfnf8640 [place] [address]Dr. Nahed Yañez MCH (RBC) [Entitic mass] 28.6 pg Normal 26.7-34.0 [facility] Comment on above: Performed By: #### C BC ####[facility] Yrpiwfsrbv69[address] [place], [place] [address]Dr. Nhaed Yañez MCHC (RBC) [Mass/Vol] 31.5 g/dL Normal 29.9-35.2 [facility] Comment on above: Performed By: #### C BC ####[facility] Nfjehsdtvx[address] [place], [place] [address]DrShaun Yañez MCV (RBC) [Entitic vol] 90.8 fL Normal 81.0-99.0 [facility] Comment on above: Performed By: #### C BC ####[facility] Xevswtefpw15[address] [place], [place] [address]DrShaun Yañez MONO # 0.7 103/ul Normal 0.3-0.8 [facility] Comment on above: Performed By: #### C BC ####[facility] Ljxuukxyxz05[address] [place], [place] [address]DrShaun Yañez Monocytes/100 WBC (Bld) 8.0 % Normal 1.7-12.0 [facility] Comment on above: Performed By: #### C BC ####[facility] Atltneeqwz83[address] [place], [place] [address]DrShaun Yañez NEUT # 4.7 103/ul Normal 1.4-6.5 [facility] Comment on above: Performed By: #### C BC ####[facility] Ihdlrxgxid[address] [place], [place] [address]DrShaun Yañez Neutrophils/100 WBC (Bld) 55.0 % Normal 43.0-75.0 [facility] Comment on above: Performed By: #### C BC ####[facility] Mxjpissaqf5146 [place] [address]DrShaun Yañez Platelet mean volume (Bld) [Entitic vol] 8.9 fL Critically low 9.5-13.5 [facility] Comment on above: Performed By: #### C BC ####[facility] Spymhsapjn7985 [place] [address]DrShaun Yañez PLT 270 103/ul Normal 150-450 [facility] Comment on above: Performed By: #### C BC ####[facility] Ufylsyxomp[address] [place], [place] [address]Dr. Nahed Yañez RBC 4.69 106/ul Normal 4.20-5.40 [facility] Comment on above: Performed By: #### C BC ####[facility] Muywskrtrj247[address] [place], [place] [address]DrShaun Yañez WBC 8.5 103/ul Normal 4.0-11.0 [facility] Comment on above: Performed By: #### C BC ####[facility] Ntdfpybemi57[address] [place], [place] [address]DrShaun Yañez PROF 14(COMP METB)on 022 Albumin [Mass/Vol] 2.7 g/dL Critically low 3.4-5.0 [facility] Comment on above: Performed By: #### C ERICK MULLER ####[facility] Xirdblayrw[address] [place], [place] [address]DrShaun Yañez Albumin/Globulin [Mass ratio] 0.8 {ratio} Normal [facility] Comment on above: Performed By: #### C ERICK MULLER ####[facility] Jzppjydddq[address] [place], [place] [address]DrShaun Yañez ALP [Catalytic activity/Vol] 65 U/L Normal 46-116 [facility] Comment on above: Performed By: #### C ERICK MULLER ####[facility] Zomzizvsuy347[address] [place], [place] [address]DrShaun Yañez ALT [Catalytic activity/Vol] 27 U/L Normal 14-59 [facility] Comment on above: Performed By: #### C ERICK MULLER ####[facility] Ezsvkgtbxy316[address] [place], [place] [address]Dr. Nahed Yañez Anion gap [Moles/Vol] 10.3 mmol/L Normal [facility] Comment on above: Performed By: #### C ERICK MULLER ####[facility] Obznqkglud528[address] [place], [place] [address]Dr. Nahed Yañez AST [Catalytic activity/Vol] 11 U/L Critically low 15-37 [facility] Comment on above: Performed By: #### C ERICK MULLER ####[facility] Wtwlgttibz96[address] [place], [place] [address]Dr. Nahed Yañez Bilirubin [Mass/Vol] 0.3 mg/dL Normal 0.2-1.0 [facility] Comment on above: Performed By: #### C ERICK UMLLER ####[facility] Ibabehucfa167[address] [place], [place] [address]Dr. Nahed Yañez Calcium [Mass/Vol] 8.1 mg/dL Critically low 8.5-10.1 [facility] Comment on above: Performed By: #### C ERICK MULLER ####[facility] Efhioopbev9[address] [place], [place] [address]Dr. Nahed Yañez Chloride [Moles/Vol] 98 mmol/L Normal 98-107 [facility] Comment on above: Performed By: #### C ERICK MULLER ####[facility] Rcnvnfwbft0224[address] [place], [place] [address]Dr. Nahed Yañez CO2 [Moles/Vol] 32.5 mmol/L Critically high 21.0-32.0 [facility] Comment on above: Performed By: #### C ERICK MULLER ####[facility] Qjnehrxwov[address] [place], [place] [address]Dr. Nahed Yañez Creatinine [Mass/Vol] 0.94 mg/dL Normal 0.55-1.02 [facility] Comment on above: Performed By: #### C ERICK MULLER ####[facility] Kvfkgvexih04[address] [place] [id number]. Nahed Yañez EGFR-AF [place] >60 Normal >=60 [facility] Comment on above: Performed By: #### C RENZO, CMAJOSE ####[facility] Tvmpwykweo1087 [place] [id number]. Nahed Yañez EGFR-NON AF [place] >60 Normal >=60 [facility] Comment on above: Performed By: #### C RENZO, CMAJOSE ####[facility] Kpphgdctfk1712 [place] [id number]. Nahed Yañez Globulin (S) [Mass/Vol] 3.2 g/dL Normal [facility] Comment on above: Performed By: #### C RENZO, CMAJOSE ####[facility] Ptwjdortgy9352 [place] [address]Dr. Nahed Yañez Glucose [Mass/Vol] 123 mg/dL Critically high 74-106 [facility] Comment on above: Performed By: #### C RENZO, CMAJOSE ####[facility] Puwjhfozsu4796 [place] [address]Dr. Nahed Yañez Potassium [Moles/Vol] 3.8 mmol/L Normal 3.5-5.1 [facility] Comment on above: Performed By: #### C RENZO, CMADM ####[facility] Ghrwekrgmg0143 [place] [address]Dr. Nahed Yañez Protein [Mass/Vol] 5.9 g/dL Critically low 6.1-8.2 [facility] Comment on above: Performed By: #### C RENZO, CMADM ####[facility] Aysresjqoy3242 [place] [address]Dr. Nahed Yañez Sodium [Moles/Vol] 137 mmol/L Normal 136-145 [facility] Comment on above: Performed By: #### C RENZO, CMADM ####[facility] Peoyyrhtgq6011 [place] [address]Dr. Nahed Yañez Urea nitrogen [Mass/Vol] 20.0 mg/dL Critically high 7.0-18.0 [facility] Comment on above: Performed By: #### C REZNO, CMADM ####[facility] Wskkmuofaw50[address] [place], [place] [address]Dr. Nahed Yañez Urea nitrogen/Creatinine [Mass ratio] 21.3 mg/mg Normal [facility] Comment on above: Performed By: #### C MP, CMADM ####[facility] Yceahryhdf92020[address] [place], [place] [address]Dr. Nahed Yañez BNPon 09-06-2021 Natriuretic peptide B (Bld) [Mass/Vol] 923.0 pg/mL Critically high <=900.0 [facility] Comment on above: Performed By: #### B MP, BNP, HSTROPN ####[facility] Zimcpholbw[address] [place], [place] [address]Dr. Nahed Yañez CBC AUTO DIFFon 09-06-2021 BASO # 0.1 103/ul Normal 0.0-0.1 [facility] Comment on above: Performed By: #### C BC ####[facility] Erfxtajczx9[address] [place], [place] [address]Dr. Nahed Yañez Basophils/100 WBC (Bld) 0.6 % Normal 0.2-2.0 [facility] Comment on above: Performed By: #### C BC ####[facility] Ojjwtvolwr66[address] [place], [place] [address]Dr. Nahed Yañez EO # 0.3 103/ul Normal 0.0-0.7 [facility] Comment on above: Performed By: #### C BC ####[facility] Dkjjwymkoe[address] [place], [place] [address]Dr. Nahed Yañez Eosinophils/100 WBC (Bld) 3.0 % Normal 0.9-7.0 [facility] Comment on above: Performed By: #### C BC ####[facility] Yivtztqfix78[address] [place], [place] [address]Dr. Nahed Yañez Erythrocyte distribution width (RBC) [Ratio] 15.0 % Normal 11.0-15.0 [facility] Comment on above: Performed By: #### C BC ####[facility] [address] [place], [place] [address]Dr. Nahed Yañez Hematocrit (Bld) [Volume fraction] 48.1 % Critically high 36.0-48.0 [facility] Comment on above: Performed By: #### C BC ####[facility] [address] [place] [address]Dr. Nahed Yañez Hemoglobin (Bld) [Mass/Vol] 15.5 g/dL Normal 12.0-16.0 [facility] Comment on above: Result Comment: delt a check called to Manisha WALKER Performed By: #### C BC ####[facility] [address] [place] [address]Dr. Nahed Yañez IG # 0.46 10e3/ul Critically high 0.00-0.03 [facility] Comment on above: Performed By: #### C BC ####[facility] [address] [place] [address]Dr. Nahed Yañez IG % 4.2 % Critically high 0.0-0.5 [facility] Comment on above: Performed By: #### C BC ####[facility] [address] [place] [address]Dr. Nahed Yañez LYMPH # 2.2 103/ul Normal 1.2-3.8 [facility] Comment on above: Performed By: #### C BC ####[facility] [address] [place] [address]Dr. Nahed Yañez Lymphocytes/100 WBC (Bld) 20.6 % Normal 20.5-60.0 [facility] Comment on above: Performed By: #### C BC ####[facility] [address] [place] [address]Dr. Nahed Yañez MANUAL DIFF REQ NO Normal [facility] Comment on above: Performed By: #### C BC ####[facility] [address] [place] [address]Dr. Nahed Yañez MCH (RBC) [Entitic mass] 28.2 pg Normal 26.7-34.0 [facility] Comment on above: Performed By: #### C BC ####[facility] Cfjanbudgt[address] [place] [id number]. Nahed Yañez MCHC (RBC) [Mass/Vol] 32.2 g/dL Normal 29.9-35.2 [facility] Comment on above: Performed By: #### C BC ####[facility] [address]xobp[address] [place] [id number]. Nahed Yañez MCV (RBC) [Entitic vol] 87.5 fL Normal 81.0-99.0 [facility] Comment on above: Performed By: #### C BC ####[facility] [address] [place] [id number]. Nahed Yañez MONO # 0.7 103/ul Normal 0.3-0.8 [facility] Comment on above: Performed By: #### C BC ####[facility] [address] [place] [id number]. Nahed Yañez Monocytes/100 WBC (Bld) 6.4 % Normal 1.7-12.0 [facility] Comment on above: Performed By: #### C BC ####[facility] [address] [place] [address]Dr. Nahed Yañez NEUT # 7.1 103/ul Critically high 1.4-6.5 [facility] Comment on above: Performed By: #### C BC ####[facility] [address]ir[address] [place] [id number]. Nahed Yañez Neutrophils/100 WBC (Bld) 65.2 % Normal 43.0-75.0 [facility] Comment on above: Performed By: #### C BC ####[facility] [address]fg[address] [place] [id number]. Nahed Yañez Platelet mean volume (Bld) [Entitic vol] 8.9 fL Critically low 9.5-13.5 [facility] Comment on above: Performed By: #### C BC ####[facility] [address]yav[address]cvzr[address] [place] [id number]. Nahed Otilio PLT 390 103/ul Normal 150-450 [facility] Comment on above: Performed By: #### C BC ####[facility] [address] [place], [place] [address]Qn. Nahed Yañez RBC 5.50 106/ul Critically high 4.20-5.40 [facility] Comment on above: Performed By: #### C BC ####[facility] Ptotccmedv[address] [place] [id number]. Nahed Yañze WBC 10.8 103/ul Normal 4.0-11.0 [facility] Comment on above: Performed By: #### C BC ####[facility] Fuz[address] [place] [id number]. Nahed Yañez CULTURE BLOODon 09-06-2021 Microscopic examination of blood, culture Culture Observations: NO GROWTH AT 5 DAYS. Isolate 1 BC_BA_NA Normal [facility] Comment on above: Performed By: #### B LDCX2 ####[facility] Yrv[address]ar[address] [place] [id number]. Nahed Yañez Microscopic examination of blood, culture Culture Observations: NO GROWTH AT 5 DAYS. Normal [facility] Comment on above: Performed By: #### B LDCX1 ####[facility] Nwxbkfgwsv[address] [place] [id number]. Nahed Yañez [facility]13 SARS-CoV-2 (COVID-19) RNA MIRNA+probe Ql (Unsp spec) Not detected Normal NOT DETECTED [facility] Comment on above: Result Comment: When diagnostic [...] for this test is supported by the [place] of Health and Human Service's declaration that [...] be used). Performed By: #### C VDTBH ####[facility] [address] [place] [address]Dr. Nahed Yañez LACTATE/LACTIC ACIDon 2021 Lactate [Moles/Vol] 0.1 mmol/L Critically low 0.4-2.0 [facility] Comment on above: Performed By: #### L ACT ####[facility] Okn[address] [place] [address]Dr. Nahed Yañez Lactate [Moles/Vol] 1.5 mmol/L Normal 0.4-2.0 [facility] Comment on above: Performed By: #### L ACT ####[facility] [address] [place], [place] [address]Dr. Nahed Yañez POINT OF CARE GLUCOSEon 08-13 Glucose [Mass/Vol] 201 mg/dL Critically high 74-106 [facility] Comment on above: Performed By: #### P OCGLUC ####[facility] [address] [place], [place] [address]Dr. Nahed Yañez PROF CHEM 8 (BAS METB)on Anion gap [Moles/Vol] 14.8 mmol/L Normal [facility] Comment on above: Performed By: #### B MP, BNP, HSTROPN ####[facility] L[address] [place] [address]Dr. Nahed Yañez Calcium [Mass/Vol] 8.8 mg/dL Normal 8.5-10.1 [facility] Comment on above: Performed By: #### B MP, BNP, HSTROPN ####[facility] [address] [place], [place] [address]Dr. Nahed Yañez Chloride [Moles/Vol] 95 mmol/L Critically low 98-107 [facility] Comment on above: Performed By: #### B MP, BNP, HSTROPN ####[facility] J[address] [place], [place] [address]Dr. Nahed Yañez CO2 [Moles/Vol] 28.7 mmol/L Normal 21.0-32.0 [facility] Comment on above: Performed By: #### B MP, BNP, HSTROPN ####[facility] [address] [place] [address]Dr. Nahed Yañez Creatinine [Mass/Vol] 0.98 mg/dL Normal 0.55-1.02 [facility] Comment on above: Performed By: #### B MP, BNP, HSTROPN ####[facility] [address] [place], [place] [address]Dr. Nahed Yañez EGFR-AF [place] >60 Normal >=60 [facility] Comment on above: Performed By: #### B MP, BNP, HSTROPN ####[facility] [address] [place], [place] [address]Dr. Rosemarieashley Otilio EGFR-NON AF [place] 58 mL/min/1.73m2 Critically low >=60 [facility] Comment on above: Performed By: #### B MP, BNP, HSTROPN ####[facility] [address] [place], [place] [address]Dr. Rosemarieashley Yañez Glucose [Mass/Vol] 150 mg/dL Critically high 74-106 [facility] Comment on above: Performed By: #### B MP, BNP, HSTROPN ####[facility] [address] [place], [place] [address]Dr. Nahed Yañez Potassium [Moles/Vol] 4.5 mmol/L Normal 3.5-5.1 [facility] Comment on above: Performed By: #### B MP, BNP, HSTROPN ####[facility] [address] [place], [place] [address]Dr. Rosemarieashley Yañez Sodium [Moles/Vol] 134 mmol/L Critically low 136-145 [facility] Comment on above: Performed By: #### B MP, BNP, HSTROPN ####[facility] [address] [place], [place] [address]Dr. Nahed Yañez Urea nitrogen [Mass/Vol] 19.0 mg/dL Critically high 7.0-18.0 [facility] Comment on above: Performed By: #### B MP, BNP, HSTROPN ####[facility] [address] [place], [place] [address]Nb. Nahed Yañze Urea nitrogen/Creatinine [Mass ratio] 19.4 mg/mg Normal [facility] Comment on above: Performed By: #### B MP, BNP, HSTROPN ####[facility] [address] [place] [id number]. Nahed Yañez TROPONIN, HIGH SENSITIVITYon 09-06-2021 HSTROP 50.4 pg/mL Normal 4.0-51.3 [facility] Comment on above: Result Comment: CUT- OFF POINTS HAVE BEEN ESTABLISHED BASED ON THE FOURTH UNIVERSAL DEFINITIONS OF MYOCARDIALINFARCTION. THE UPPER REFERENCE LIMIT (URL) OF TROPONIN, DEFINED THE 99TH PERCENTILE OFcTnI DISTRIBUTION IN A REFERENCE POPULATION, HAS BEEN CONFIRMED THE DECISION THRESHOLDFOR AL DIAGNOSIS. Performed By: #### B MP, BNP, HSTROPN ####[facility] [address] [place] [id number]. Nahed Yañez XR CHEST 1 Von 09-06-2021 XR CHEST 1 V Normal [facility] CBC with Diffon 09-08-2018 Abs. Basophil 0.03 k/uL Normal 0.00-0.[address] [facility] Comment on above: Performed By: #### L IP, CMPX, CDP #### [facility] [address] [place] [address] [employer] Supervisor: Nino Farias MD Abs.Imm.Granulocyte 0.05 k/uL Normal 0.00-0.30 [facility] Comment on above: Performed By: #### L IP, CMPX, CDP #### [facility] [address] [place] [address] [employer] Supervisor: Nino Farias MD Abs.Neutrophil (Seg) 11.30 k/uL High 1.50-8.10 [facility] Comment on above: Performed By: #### L IP, CMPX, CDP #### [facility] [address] [place], [place] [id number] [employer] Supervisor: Nino Farias MD Basophils/100 WBC (Bld) 0 % Normal 0-2 [facility] Comment on above: Performed By: #### L IP, CMPX, CDP #### [facility] [address] [place], [place] [address] [employer] Supervisor: Nino Farias MD Eosinophils #/vol (Bld) 0.17 10*3/uL Normal 0.00-0.44 [facility] Comment on above: Performed By: #### L IP, CMPX, CDP #### [address] [place], [facility]83 [employer] Supervisor: Nino Farias MD Eosinophils/100 WBC (Bld) 1 % Normal 1-4 [facility] Comment on above: Performed By: #### L IP, CMPX, CDP #### [address] [place], [facility]83 [employer] Supervisor: Nino Farias MD Erythrocyte distribution width Ratio (RBC) 12.5 % Normal 11.8-14.4 [facility] Comment on above: Performed By: #### L IP, CMPX, CDP #### [address] [place], [facility]83 [employer] Supervisor: Nino Farias MD Hematocrit Volume Fraction (Bld) 36.8 % Normal 36.3-47.1 [facility] Comment on above: Performed By: #### L IP, CMPX, CDP #### [address] [place], [place] [id number] [employer] Supervisor: Nino Farias MD Hemoglobin mass conc (Bld) 11.6 g/dL Low 11.9-15.1 [facility] Comment on above: Performed By: #### L IP, CMPX, CDP #### [address] [place], [facility]83 [employer] Supervisor: Nino Farias MD Immature granulocytes #/vol (Bld) 0 % Normal 0 [facility] Comment on above: Performed By: #### L IP, CMPX, CDP #### [facility] [address] [place], [place] [address] [employer] Supervisor: Nino Farias MD Lymphocytes #/vol (Bld) 2.56 10*3/uL Normal 1.10-3.70 [facility] Comment on above: Performed By: #### L IP, CMPX, CDP #### [facility] [address] [place], [facility]83 [employer] Supervisor: Nino Farias MD Lymphocytes/100 WBC (Bld) 18 % Low 24-43 [facility] Comment on above: Performed By: #### L IP, CMPX, CDP #### [address] [place], [facility]83 [employer] Supervisor: Nino Farias MD MCH Entitic mass (RBC) 30.6 pg Normal 25.2-33.5 [facility] Comment on above: Performed By: #### L IP, CMPX, CDP #### [address] [place], [facility]83 [employer] Supervisor: Nino Farias MD MCHC mass conc (RBC) 31.5 g/dL Normal 28.4-34.8 [facility] Comment on above: Performed By: #### L IP, CMPX, CDP #### [address] [place], [place] [address] [employer] Supervisor: Nino Farias MD MCV Entitic volume (RBC) 97.1 fL Normal 82.6-102.9 [facility] Comment on above: Performed By: #### L IP, CMPX, CDP #### [facility] [address] [place], [place] [address] [employer] Supervisor: Nino Farias MD Monocytes #/vol (Bld) 0.55 10*3/uL Normal 0.10-1.20 [facility] Comment on above: Performed By: #### L IP, CMPX, CDP #### [facility] [address] [place], [place] 158[address] [employer] Supervisor: Nino Farias MD Monocytes/100 WBC (Bld) 4 % Normal 3-12 [facility] Comment on above: Performed By: #### L IP, CMPX, CDP #### [facility] [address] [place], [place] [address] [employer] Supervisor: Nino Farias MD Neutrophil (Seg) 77 % High 36-65 [facility] Comment on above: Performed By: #### L IP, CMPX, CDP #### [facility] [address] [place], [place] [address] [employer] Supervisor: Nino Farias MD NRBC Automated 0.0 per 100 WBC Normal 0.0 [facility] Comment on above: Performed By: #### L IP, CMPX, CDP #### [facility] [address] [place], [place] 450[address] [employer] Supervisor: Nino Farias MD Platelet mean volume Entitic volume (Bld) 9.2 fL Normal 8.1-13.[address] [facility] Comment on above: Performed By: #### L IP, CMPX, CDP #### [facility] [address] [place], [place] [address] [employer] Supervisor: Nino Farias MD Platelets #/vol (Bld) 305 10*3/uL Normal 138-453 [facility] Comment on above: Performed By: #### L IP, CMPX, CDP #### [facility] [address] [place], [place] [address]83 [employer] Supervisor: Nino Farias MD RBC #/vol (Bld) 3.79 10*6/uL Low 3.95-5.11 [facility] Comment on above: Performed By: #### L IP, CMPX, CDP #### [facility] [address] [place] [address] [employer] Supervisor: Nino Farias MD WBC #/vol (Bld) 14.7 10*3/uL High 3.5-11.3 [facility] Comment on above: Performed By: #### L IP, CMPX, CDP #### [facility] [address] [place], [place] [address] [employer] Supervisor: Nino Farias MD Auto Diff Performed NOT REPORTED Normal [facility] Comment on above: Performed By: #### L IP, CMPX, CDP #### [address] [place] [address] [employer] Supervisor: Nino Farias MD Platelets #/vol (Bld) NOT REPORTED Normal [facility] Comment on above: Performed By: #### L IP, CMPX, CDP #### [facility] [address] [place] [address] [place] [address] [employer] Supervisor: Nino Farias MD RBC morphology finding Nom (Bld) NOT REPORTED Normal [facility] Comment on above: Performed By: #### L IP, CMPX, CDP #### [address] [place] [address] [employer] Supervisor: Nino Farias MD WBC Morphology NOT REPORTED Normal [facility] Comment on above: Performed By: #### L IP, CMPX, CDP #### [facility] [address] [place] [address] [place] [address] [employer] Supervisor: Nino Farias MD Comp Metabolic Pr/rfx MGon 0 09-08-2018 ALT enzyme act/vol U/L Low -33 [facility] Comment on above: Performed By: #### L IP, CMPX, CDP #### [facility] [address] [place], [place] [id number] [employer] Supervisor: Nino Farias MD (cont.) Normal [facility] Comment on above: Result Comment: Aver age GFR for 50-59 years old: 93 mL/min/1.73sq m Chronic Kidney Disease: <60 mL/min/1.73sq m Kidney failure: <15 mL/min/1.73sq m eGFR calculated using average adult body mass. Additional eGFR calculator available at: http://[email or web address]/multiple_crcl_2012.htm Performed By: #### L IP, CMPX, CDP #### [facility] [address] [place] [address] [employer] Supervisor: Nino Farias MD Albumin mass conc 4.0 g/dL Normal 3.5-5.2 [facility] Comment on above: Performed By: #### L IP, CMPX, CDP #### [facility] [address] [place] [address] [employer] Supervisor: Nino Farias MD Albumin/Globulin mass ratio 1.3 {ratio} Normal 1.0-2.5 [facility] Comment on above: Performed By: #### L IP, CMPX, CDP #### [facility] [address] [place] [address] [employer] Supervisor: Nino Farias MD Alkaline Phos 58 U/L Normal 35-[address] [facility] Comment on above: Performed By: #### L IP, CMPX, CDP #### [facility] [address] [place] [address] [employer] Supervisor: Nino Farias MD Anion gap molar conc 8 mmol/L Low 9-17 [facility] Comment on above: Performed By: #### L IP, CMPX, CDP #### [facility] [address] [place] [address] [employer] Supervisor: Nino Farias MD AST enzyme act/vol 20 U/L Normal <32 [facility] Comment on above: Performed By: #### L IP, CMPX, CDP #### [facility] [address] [place], [place] 3124283 [employer] Supervisor: Nino Farias MD Bilirubin Ql (U) 0.17 mg/dL Low 0.3-1.2 [facility] Comment on above: Performed By: #### L IP, CMPX, CDP #### [facility] [address] [place], [place] 1228683 [employer] Supervisor: Nino Farias MD BUN/CRE Ratio 15 Normal 9-[address] [facility] Comment on above: Performed By: #### L IP, CMPX, CDP #### [facility] [address] [place], [place] 737[address]83 [employer] Supervisor: Nino Farias MD Calcium mass conc 9.3 mg/dL Normal 8.6-10.4 [facility] Comment on above: Performed By: #### L IP, CMPX, CDP #### [facility] [address] [place], [place] 696[address]83 [employer] Supervisor: Nino Farias MD Chloride molar conc 97 mmol/L Low 98-107 [facility] Comment on above: Performed By: #### L IP, CMPX, CDP #### [facility] [address] [place] [address] Dr. [place], [place] [id number] [employer] Supervisor: Nino Farias MD CO2 molar conc 31 mmol/L Normal 20-31 [facility] Comment on above: Performed By: #### L IP, CMPX, CDP #### [facility] [address] [place], [place] 2840483 [employer] Supervisor: Nino Farias MD Creatinine mass conc 1.22 mg/dL High 0.50-0.90 [facility] Comment on above: Performed By: #### L IP, CMPX, CDP #### [facility] [address] [place], [place] 212[address]83 [employer] Supervisor: Nino Farias MD GFR, Amer 55 mL/min Low >60 [facility] Comment on above: Performed By: #### L IP, CMPX, CDP #### [facility] [address] [place] [address] [employer] Supervisor: Nino Farias MD GFR,non Amer 45 mL/min Low >60 [facility] Comment on above: Performed By: #### L IP, CMPX, CDP #### [facility] [address] [place] [address] [employer] Supervisor: Nino Farias MD Glucose mass conc 93 mg/dL Normal 70-99 [facility] Comment on above: Performed By: #### L IP, CMPX, CDP #### [facility] [address] [place] [address] [employer] Supervisor: Nino Farias MD Potassium molar conc 4.5 mmol/L Normal 3.7-5.3 [facility] Comment on above: Performed By: #### L IP, CMPX, CDP #### [facility] [address] [place] [address] [employer] Supervisor: Nino Farias MD Protein mass conc 7.0 g/dL Normal 6.4-8.3 [facility] Comment on above: Performed By: #### L IP, CMPX, CDP #### [facility] [address] [place] [address] [employer] Supervisor: Nino Farias MD Sodium molar conc 136 mmol/L Normal 135-144 [facility] Comment on above: Performed By: #### L IP, CMPX, CDP #### [facility] [address] [place] [address] [employer] Supervisor: Nino Farias MD Staging: Normal [facility] Comment on above: Result Comment: Stag e 1: Some kidney damage normal GFR Stage 2: Mild kidney damage GFR 60-89 Stage 3: Moderate kidney damage GFR 30-59 Stage 4: Severe kidney damage GFR 15-29 Stage 5: Severe kidney damage GFR <15 ESRD - chronic treatment by dialysis or transplant Performed By: #### L IP, CMPX, CDP #### [facility] [address] [place], [place] [id number] [employer] Supervisor: Nino Farias MD Urea nitrogen mass conc 18 mg/dL Normal 6-20 [facility] Comment on above: Performed By: #### L IP, CMPX, CDP #### [facility] [address] [place], [place] 135[address]83 [employer] Supervisor: Nino Farias MD Lactic Acidon 09-08-2018 Lactate molar conc 1.2 mmol/L Normal 0.5-2.2 [facility] Comment on above: Performed By: #### L AC #### [facility] [address] [place], [place] 8573183 [employer] Supervisor: Nino Farias MD Lipaseon 09-08-2018 Lipase enzyme act/vol 27 U/L Normal 13-60 [facility] Comment on above: Performed By: #### L IP, CMPX, CDP #### [facility] [address] [place], [place] 656[address]83 [employer] Supervisor: Nino Farias MD UA w/Reflex Cultureon 2018 Acetoacetic Acid,Ur Negative Normal NEG [facility] Comment on above: Performed By: #### U MICAO, UAX #### [facility] [address] [place], [place] 3178183 [employer] Supervisor: Nino Farias MD Bilirubin.direct mass conc SMALL Abnormal NEG [facility] Comment on above: Performed By: #### U MICAO, UAX #### [facility] [address] [place] [address] [employer] Supervisor: Nino Farias MD Color Nom (U) YELLOW Normal YEL [facility] Comment on above: Performed By: #### U MICAO, UAX #### [facility] [address] [place] [address] [employer] Supervisor: Nino Farias MD Glucose mass conc Negative Normal NEG [facility] Comment on above: Performed By: #### U MICAO, UAX #### [facility] [address] [place], [place] 5805183 [employer] Supervisor: Nino Farias MD Hemoglobin mass conc (Bld) Negative Normal NEG [facility] Comment on above: Performed By: #### U MICAO, UAX #### [facility] [address] [place], [place] [phone] [employer] Supervisor: Nino Farias MD Leuckocyte Esterase Negative Normal NEG [facility] Comment on above: Performed By: #### U MICAO, UAX #### [facility] [address] [place], [place] 900[address]83 [employer] Supervisor: Nino Farias MD Nitrite,Ur Negative Normal NEG [facility] Comment on above: Performed By: #### U MICAO, UAX #### [facility] [address] [place] [address] [employer] Floor Supervisor: Nino Farias MD PH,Ur 5.5 Normal 5.0-9.0 [facility] Comment on above: Performed By: #### U MICAO, UAX #### [facility] [address] [place] [address] [employer] Floor Supervisor: Nino Farias MD Protein mass conc Negative Normal [facility] Comment on above: Performed By: #### U MICAO, UAX #### [facility] [address] [place], [place] [id number] [employer] Floor Supervisor: Nino Farias MD Spec. [place],Ur 1.010 Normal 1.010-1.020 [facility] Comment on above: Performed By: #### U MICAO, UAX #### [facility] [address] [place], [place] [id number] [employer] Floor Supervisor: Nino Farias MD Turbidity CLEAR Normal CLEAR [facility] Comment on above: Performed By: #### U MICAO, UAX #### [facility] [address] [place] [address] [employer] Floor Supervisor: Nino Farias MD Urobilinogen,Ur Normal Normal NORM [facility] Comment on above: Performed By: #### U MICAO, UAX #### [facility] [address] [place] [address] [employer] Floor Supervisor: Nino Farias MD Comment NOT REPORTED Normal [facility] Comment on above: Performed By: #### U MICAO, UAX #### [facility] [address] [place] [address] [employer] Floor Supervisor: Nino Farias MD Urinalysis,Microon 9 ----- Normal [facility] Comment on above: Performed By: #### U MICAO, UAX #### [facility] [address] [place], [place] [id number] [employer] Floor Supervisor: Nino Farias MD Bacteria LM.HPF #/area (Urine sed) TRACE Abnormal NONE [facility] Comment on above: Performed By: #### U MICAO, UAX #### [facility] [address] [place], [place] [phone] [employer] Floor Supervisor: Nino Farias MD Epithelial cells LM.HPF #/area (Urine sed) None Normal 0-25 [facility] Comment on above: Performed By: #### U MICAO, UAX #### [facility] [address] [place], [place] [address] [employer] Floor Supervisor: Nino Farias MD RBC #/vol (U) None Normal 0-[address] [facility] Comment on above: Performed By: #### U MICAO, UAX #### [facility] [address] [place] [address] [employer] Floor Supervisor: Nino Farias MD WBC #/vol (U) 0 TO 2 Normal 0-[address] [facility] Comment on above: Performed By: #### U MICAO, UAX #### [facility] [address] [place], [place] [phone] [employer] Floor Supervisor: Nino Farias MD Amorphous sediment LM Ql (Urine sed) NOT REPORTED Normal NONE [facility] Comment on above: Performed By: #### U MICAO, UAX #### [facility] [address] [place] [address] [employer] Floor Supervisor: Nino Farias MD Casts LM.LPF #/area (Urine sed) NOT REPORTED Normal [facility] Comment on above: Performed By: #### U MICAO, UAX #### [facility] [address] [place] [address] [employer] Floor Supervisor: Nino Farias MD Crystals LM Nom (Urine sed) NOT REPORTED Normal [facility] Comment on above: Performed By: #### U MICAO, UAX #### [facility] [address] [place] [address] [employer] Floor Supervisor: Nino Farias MD Epithelial, Renal NOT REPORTED Normal 0 [facility] Comment on above: Performed By: #### U MICAO, UAX #### [facility] [address] [place], [place] [phone] [employer] Floor Supervisor: Nino Farias MD Mucus Strands NOT REPORTED Normal [facility] Comment on above: Performed By: #### U MICAO, UAX #### [facility] [address] [place] [address] [employer] Floor Supervisor: Nino Farias MD Other Observations NOT REPORTED Normal NREQ [facility] Comment on above: Performed By: #### U MICAO, UAX #### [facility] [address] [place] [address] [employer] Floor Supervisor: Nino Farias MD Trichomonas NOT REPORTED Normal NONE [facility] Comment on above: Performed By: #### U MICAO, UAX #### [facility] [address] [place] [address] [employer] Floor Supervisor: Nino Farias MD Yeast LM Ql (Urine sed) NOT REPORTED Normal NONE [facility] Comment on above: Performed By: #### U MICAO, UAX #### [facility] [address] [place] [address] [employer] Floor Supervisor: Nino Farias MD Vital Signs Date Time Vital Sign Value Performing Clinician Faci lity 07-05-2023 22:13-0500 Diastolic blood pressure 74 mm[Hg] Arsenio Martin [facility] 07-05-2023 22:13-0500 Heart rate 62 /min Arsenio Mario [facility] 07-05-2023 22:13-0500 Mean blood pressure 85 mm[Hg] Arsenio Mario [facility] 07-05-2023 22:13-0500 Respiratory rate 14 /min Arsenio Mario [facility] 07-05-2023 22:13-0500 SaO2% (BldA) [Mass fraction] 99 % Arsenio Mario [facility] 07-05-2023 22:13-0500 Systolic blood pressure 107 mm[Hg] Arsenio Mario [facility] 07-05-2023 21:49-0500 Diastolic blood pressure 69 mm[Hg] Arsenio Mario [facility] 07-05-2023 21:49-0500 Heart rate 59 /min Arsenio Mario [facility] 07-05-2023 21:49-0500 Mean blood pressure 80 mm[Hg] Arsenio Mario [facility] 07-05-2023 21:49-0500 Respiratory rate 15 /min Arsenio Martin [facility] 07-05-2023 21:49-0500 SaO2% (BldA) [Mass fraction] 97 % Arsenio Mario [facility] 07-05-2023 21:49-0500 Systolic blood pressure 101 mm[Hg] Arsenio Mario [facility] 07-05-2023 21:02-0500 Diastolic blood pressure 77 mm[Hg] Arsenio Mario [facility] 07-05-2023 21:02-0500 Heart rate 60 /min Arsenioulises Martin [facility] 07-05-2023 21:02-0500 Mean blood pressure 86 mm[Hg] Arsenio Martin [facility] 07-05-2023 21:02-0500 Respiratory rate 16 /min Arsenio Martin [facility] 07-05-2023 21:02-0500 SaO2% (BldA) [Mass fraction] 99 % Arsenio Mario [facility] 07-05-2023 21:02-0500 Systolic blood pressure 105 mm[Hg] Arsenio Martin [facility] 07-05-2023 17:45-0500 Body temperature 97.52 [degF] Arsenio Martin [facility] 07-05-2023 16:27-0500 Body temperature 96.44 [degF] Arsenio Martin [facility] 07-05-2023 15:15-0500 gluc 136 mg/dL Arsenio Martin [facility] 07-05-2023 15:15-0500 gluc Arsenioulises Martin [facility] 07-05-2023 15:02-0500 Body temperature 95.9 [degF] Arsenio Mario [facility] 07-05-2023 15:02-0500 Heart rate 54 /min Arsenio Mario [facility] 07-05-2023 15:02-0500 Respiratory rate 16 /min Arsenio Mario [facility] 08-09-2022 17:25-0400 Diastolic blood pressure 64 mm[Hg] Arsenio Mario [facility] 08-09-2022 17:25-0400 Heart rate 75 /min Arsenio Mario [facility] 08-09-2022 17:25-0400 Mean blood pressure 83 mm[Hg] Arsenio Mario [facility] 08-09-2022 17:25-0400 Respiratory rate 16 /min Arsenio Mario [facility] 08-09-2022 17:25-0400 SaO2% (BldA) [Mass fraction] 96 % Arsenio Mario [facility] 08-09-2022 17:25-0400 Systolic blood pressure 122 mm[Hg] Arsenio Mario [facility] 08-09-2022 16:00-0400 Diastolic blood pressure 56 mm[Hg] Arsenio Mario [facility] 08-09-2022 16:00-0400 Heart rate 64 /min Arsenio Mario [facility] 08-09-2022 16:00-0400 Mean blood pressure 72 mm[Hg] Arsenio Mario [facility] 08-09-2022 16:00-0400 SaO2% (BldA) [Mass fraction] 92 % Arsenio Martin [facility] 08-09-2022 16:00-0400 Systolic blood pressure 103 mm[Hg] Arsenio Martin [facility] 08-09-2022 15:00-0400 Diastolic blood pressure 67 mm[Hg] Arsenio Martin [facility] 08-09-2022 15:00-0400 Heart rate 61 /min Arsenio Martin [facility] 08-09-2022 15:00-0400 Mean blood pressure 80 mm[Hg] Arsenio Martin [facility] 08-09-2022 15:00-0400 Systolic blood pressure 106 mm[Hg] Arsenio Martin [facility] 08-09-2022 14:03-0400 SaO2% (BldA) [Mass fraction] 94.1 % Arsenio Martin [facility] Resp Auto SS 08-09-2022 13:10-0400 Body temperature 98.24 [degF] Arsenio Martin [facility] 08-09-2022 13:10-0400 Heart rate 70 /min Arsenio Martin [facility] 08-09-2022 13:10-0400 Respiratory rate 18 /min Arsenio Martin [facility] Encounters Encounter Date Encounter Type Care Provider Facility Start: 09-10-2023 End: 09-10-2023 ambulatory EHAB [facility] Start: 08-11-2023 Evaluation and management of inpatient [facility] Start: 08-10-2023 Evaluation and management of inpatient [facility] Start: 08-10-2023 End: 08-11-2023 [facility]: 07-31-2023 End: 07-31-2023 ambulatory VINAY CHAPA [facility] Start: 07-11-2023 Evaluation and management of inpatient LOREE CHANCE [facility] Start: 07-08-2023 Evaluation and management of inpatient BARRETT LARSON [facility] Start: 07-06-2023 Evaluation and management of inpatient ISAIAHLAYNE LARSON [facility] Start: 07-06-2023 End: 07-11-2023 Evaluation and management of inpatient ARSENIO MARTIN [facility] Start: 07-05-2023 End: 07-06-2023 Emergency department patient visit Arsenio Martin Facility:[facility] Start: 07-05-2023 End: 07-05-2023 Emergency department patient visit Arsenio Martin [facility] Start: 06-29-2023 Evaluation and management of inpatient ROSALBA OLIVASWinston [facility] Start: 06-29-2023 End: 07-02-2023 Evaluation and management of inpatient SOCORRO [place] CASTRO [facility] Start: 08-22-2022 End: 08-24-2022 Evaluation and management of inpatient DR ЕКАТЕРИНА ROBERT . Facility: Start: 08-09-2022 End: 08-09-2022 Emergency department patient visit Arsenio Martin Facility:[facility] Start: 08-09-2022 End: 08-09-2022 Emergency department patient visit Arsenio Martin [facility] Start: 07-30-2022 End: 08-01-2022 Evaluation and management of inpatient DR ЕКАТЕРИНА ROBERT . Facility: Start: 07-27-2022 End: 07-28-[address] ЕКАТЕРИНА ROBERT . Facility: Start: 05-08-2022 End: 05-09-[address] ЕКАТЕРИНА ROBERT . Facility:[facility] Start: 01-31-2022 End: 01-31-[address] ЕКАТЕРИНА ROBERT . Facility:[facility] Start: 11-01-2021 End: 11-03-2021 Evaluation and management of inpatient TAMIE FAJARDO Facility:[facility] Start: 10-31-2021 End: 11-01-2021 Evaluation and management of inpatient DR ЕКАТЕРИНА ROBERT . Facility: Start: 09-28-2021 End: 09-29-[address] ЕКАТЕРИНА ROBERT . Facility:[facility] Start: 09-06-2021 End: 09-07-[address] ЕКАТЕРИНА ROBERT . Facility: Start: 03-04-2021 End: 03-04-2021 Emergency department patient visit Magdalena Oconnor Facility:[facility] Start: 09-08-2018 End: 09-08-2018 Emergency department patient visit KEISHA DORADO JR [facility] Procedures Date Procedure Procedure Detail Performing Clinician Start: 08-02-2022 Microscopic examinat ion of blood, culture DR ЕКАТЕРИНА ROBERT . Comment on above: Performed By: #### B [id number] ####[facility] [id number] [address]Dr. Nahed Otilio Start: 11-02-2021 Antibody screen SAVANNAHI SA AD Comment on above: Performed By: #### 3 5200, [address]19 #### [facility] [address] [place] [address], [facility] Start: 07-16-2019 Phalangectomy of toe [...] Martin Payers Date Payer Category Payer Medicare [id number] 2021 Self-pay 2018 Medicare [id number] 1960 Unknown [id number] 2.16.8 [id number] 1960 Unknown [id number] 2.16.8 40.1.063601.3.579.2.647 1961 Unknown [id number] 2.16.84 0.1.462344.3.579.2.593 1961 Unknown [id number] 2.16.84 0.1.923466.3.579.2.593 1961 Unknown [id number] 2.16.84 0.1.736226.3.579.2.593 1961 Unknown [id number] 2.16.84 0.1.710179.3.579.2.593 1961 Unknown [id number] 2.16.84 0.1.652213.3.579.2.593 1961 Unknown [id number] 2.16.84 0.1.836033.3.579.2.593 1961 Unknown [id number] 2.16.84 0.1.990430.3.579.2.593 1961 Unknown [id number] 2.16.84 0.1.324121.3.579.2.593 1961 Unknown [id number] 2.16.8 40.1.605846.3.579.2.727 1961 Unknown [id number] 2.16.8 40.1.920636.3.579.2.727 1959 Unknown [id number] Unknown [id number] 2.16.8 [id number] Social History Date Type Detail Facility Start: 08-09-2022 Tobacco smoking status Heavy t obacco smoker (finding) [facility] Comment on above: 2 cigarettes a day Sex Assigned At Female [facility] Functional Status Date Assessment Result Facility 07-05-2023 Functional Status N/A [facility] 08-09-2022 Functional Status N/A [facility] Clinical Notes 11-03-2021 to 09-10-2023 Note Date & Type Note Facility 09-10-2023 Note [facility] Cardiology Clinic Note Chief Complaint: Patient here for follow up [facility]. She is doing much better and isn't having as much chest pain. She was started on isosorbide and carvedilol. She's breathing much better. HPI: Vivian Vann is a 63 y.o. female Recently discharged from [facility]; she is doing well Discharge Summary Final [...] shortness of breath and was admitted to [place] [facility] and diagnosed NSTEMI and transferred to [facility] for further care. Her BNP is severely [...] HFpEF as tolerated 4) outpatient follow-up with [facility] Procedures Performed: coronary angiogram, right heart catheterization, conscious sedation 21 min, ultrasound guidance for vascular access Procedure Description: The patient was brought to the cardiac catheterization lab in a fasting state. Informed written consent was obtained. she was prepped and draped in usual sterile fashion over the right wrist and right neck and (more content not included)... [facility] 08-11-2023 Note [facility] CARDIOLOGY INPAT IENT [...] or edema. Patient states she lives in [place] and does not have a car. This limits follow up for her pacemaker however she does have appt scheduled for 08/20 at our [place] [facility]. Plan for a device check to [...] signed: ROSAMARIA ELENA (more content not included)... [facility] 08-11-2023 Note Hospital Medicine Discharge Summary [...] Your Medications These medications were sent to [facility]/pharmacy #[id number] [place] [place] [address] oxyCODONE-acetaminophen 5-325 mg tablet Vivian is allergic [...] rate 20, h (more content not included)... [facility] 08-10-2023 Note 08/10/23 0365 Admission Assessment Questions Verify insurance with patient [...] Discharge? Yes Does the patient have a caser in assigned to them through their insurance? No [...] to send link and activate MyChart? No [facility] 08-10-2023 Note Hospital Medicine History and Physical 08/10/2023 11:43 AM THE HOSPITALIST TEAM PREFERS TO USE Emme E2MS CHAT FOR COMMUNICATION 7AM-7PM. IF I DO NOT RESPOND WITHIN 15 MINUTES, PLEASE PAGE ME/CALL THROUGH THE COMMUNICATIONS CONTROLLER. FROM 7PM-7AM, PLEASE PAGE [phone](COVR) Chief Complaint pacemaker lead failure, status post [...] Bradycardia 07/06/2023 NSTEMI (non-ST elevated myocardial infarction) ([facility]) 06/29/2023 Other forms of angina pectoris 06/29/2023 Hypomagnesemia 06/29/2023 Acute midline low back pain without sciatica 06/29/2023 Coronary arteriosclerosis 11/24/2021 Hyperlipidemia 11/24/2021 Type 2 diabetes mellitus ([facility]) 11/24/2021 Acute non-ST segment elevation myocardial infarction ([facility]) 11/24/2021 Cigarette smoker 11/24/2021 Pacemaker lead [...] this hospital stay by a member of [facility] Medicine. Past Medical History No past [...] Alcohol use: Not (more content not included)... [facility] 08-10-2023 Note Indications for vent ricular [...] of the upper extremity Loree Chance M.D. [facility] Barber Stylistdrapery cutter and Pediatrics Director: Cardiac Electrophysiology Program [facility] 08-10-2023 Note Patient: Vivian Dela Cruz or Procedure Information Date/Time: 08/10/23829 Procedure: Pacemaker lead revision - Biotronik Location: [facility] PHYSIOTHERAPY ASSISTANT 1 / [facility] VASCULAR LAB (Cath) Providers: Loree [...] discussed with patient who. Additional Equipment Requests [facility] 07-11-2023 Note Hospital Medicine Discharge Summary [...] NP CARD Deirdre Moreno 08/06/2023 1:30 PM [facility] CV CLINIC DEVICE CHECK [facility] CARD [place] [facility] Your medication list START taking these [...] 70.4 kg (1 (more content not included)... [facility] 07-11-2023 Note Occupational Therapy Occupational Therapy [...] Level of Function Prior Function Level of Mower: Independent with ADLs and functional transfers, Independent [...] Eating meals?: None (Independent) Total Score OT [facility]: 24 Assessment/Plan OT Assessment OT Education/Comments: (PPM handout issued and discussed with good return demo) Plan OT Plan: No skilled OT OT Discharge Recommendations: Home OT - Discharge Recommendations Placed: Yes OT Goals Multi-Disciplinary Problems (from Occupational Therapy) Active Problems Not on file [facility] 07-11-2023 Note [facility] CARDIOLOGY PROGR ESS [...] Normal heart size. Electronically signed: Denver Hernandez. [facility] 06/29/23: Final Impression: 1) Coronary angiogram shows stable CAD 2) right heart catheterization shows severely decompensated heart failure with mean wedge pressure 35 mmHg Plan: 1) optimal med therapy for CAD and HFpEF 2) Aspirin and high intensity statin therapy for CAD 3) optimize medical therapy for HFpEF as tolerated 4) outpatient follow-up with [facility] Echo 06/29/23: Left Ventricle: The left ventricle is normal size. Global left ventricular sys (more content not included)... [facility] 07-11-2023 Note Hospital Medicine Daily Progress Note - 07/11/2023 8:24 AM; Room: [address] [place] [address] Admission: 07/06/2023 12:25 AM; Length of stay: 5 days THE HOSPITALIST TEAM PREFERS TO USE Emme E2MS CHAT FOR COMMUNICATION 7AM-7PM. IF I DO NOT RESPOND WITHIN 15 MINUTES, PLEASE PAGE ME/CALL THROUGH THE COMMUNICATIONS CONTROLLER. FROM 7PM-7AM, PLEASE PAGE [phone](COVR) Code Status: Full Code Barriers to Discharge: [...] LDL 95 07/06/2023 No results found for: [id number] , IRON , TIBC , C3 , [...] clear. Normal heart (more content not included)... [facility] 07-10-2023 Note Indications for dual -chamber [...] of the upper extremity Loree Chance M.D. [facility] Barber Stylistdrapery cutter and Pediatrics Director: Cardiac Electrophysiology Program [facility] 07-10-2023 Note Patient: Vivian Dela Cruz or Procedure Information Date/Time: 07/10/231499 Procedure: Implant PPM Location: [facility] PHYSIOTHERAPY ASSISTANT 1 / [facility]ASCULAR [facility] (Cath) Providers: Loree [...] discussed with patient who. Additional Equipment Requests [facility] 07-10-2023 Note [facility]TP CARDIOLOGY PROGR ESS [...] lock IV AND sodium chloride CV Testing: [facility] 06/29/23: Final Impression: 1) Coronary angiogram shows stable CAD 2) right heart catheterization shows severely decompensated heart failure with mean wedge pressure 35 mmHg Plan: 1) optimal med therapy for CAD and HFpEF 2) Aspirin and high intensity statin therapy for CAD 3) optimize medical therapy for HFpEF as tolerated 4) outpatient follow-up with [facility] Echo 06/29/23: Left Ventricle: The left [...] 86 QT Interval 466 QTC CALCULATION(BAZETT) 476 R-[place] 34 T Wave [place] [address] & Marked T wave abnormality, consider anterolateral ischemia Prolonged QT Abnormal ECG When compared with ECG of 06-JUL-2023 14:34, T wave inversion less evident in Lateral Confirmed by Yoan GRIJALVA, KIERA Rainey (58) on 07/08/2023 12:23:36 PM Assessment/Plan Junctional bradycardia Abnormal EKG- ST/T wave changes concerning for ischemia- [facility] showed stable CAD Ventric (more content not included)... [facility] 07-10-2023 Note Hospital Medicine Daily Progress Note - 07/10/2023 8:08 AM; Room: [address] [place] [address] Admission: 07/06/2023 12:25 AM; Length of stay: 4 days THE HOSPITALIST TEAM PREFERS TO USE Emme E2MS CHAT FOR COMMUNICATION 7AM-7PM. IF I DO NOT RESPOND WITHIN 15 MINUTES, PLEASE PAGE ME/CALL THROUGH THE COMMUNICATIONS CONTROLLER. FROM 7PM-7AM, PLEASE PAGE [phone](COVR) Code Status: Full Code Barriers to Discharge: [...] LDL 95 07/06/2023 No results found for: [id number] , IRON , TIBC , C3 , [...] need to arrange for her transportation needs; technical publications writer provided printed information to Pt for local [employer] companies for Pt (more content not included)... [facility] 07-09-2023 Note Patient admitted to the hospital for: Bradycardia. Chart echo from 06/29/2023 reports: EF 60%. Echo report does Not qualify for Cardiac Rehab services per CMS eligibility criteria. A Cardiac Rehab referral must also meet CMS criteria. Marline Suarez, RN, BSN Cardiopulmonary Rehab Coordinator [facility] 07-09-2023 Note Cardiology Inpatient Progress Note [...] 86 QT Interval 466 QTC CALCULATION(BAZETT) 476 R-[place] 34 T Wave [place] [address] & Marked [...] Rainey (57) on 07/08/2023 12:23:36 PM 06/29/23 [facility] Final Impression: 1) Coronary angiogram shows stable CAD 2) right heart catheterization shows severely decompensated heart failure with mean wedge pressure 35 mmHg Plan: 1) optimal med therapy for CAD and HFpEF 2) Aspirin and high intensity statin therapy for CAD 3) optimize medical therapy for HFpEF as tolerated 4) outpatient follow-up with [facility] Hemodynamic Data: RA: 17 mmHg RV: [...] of bradycardia. Patient has been transferred to [facility] for consideration of pacemaker placement. As per patient, her heart rate was 18 at the outside hospital, however I could not confirm from any documentation. During the current hospitalization, so far patient's heart rate has been ranging 40-50. EKG performed in the ED showed diffuse T wave inversions with junctional rhythm. Telemetry shows sinus bradycardia a (more content not included)... [facility] 07-09-2023 Note Hospital Medicine Daily Progress Note - 07/09/2023 11:10 AM; Room: [address] [place] [address] Admission: 07/06/2023 12:25 AM; Length of stay: 3 days THE HOSPITALIST TEAM PREFERS TO USE Emme E2MS CHAT FOR COMMUNICATION 7AM-7PM. IF I DO NOT RESPOND WITHIN 15 MINUTES, PLEASE PAGE ME/CALL THROUGH THE COMMUNICATIONS CONTROLLER. FROM 7PM-7AM, PLEASE PAGE [phone](COVR) Code Status: Full Code Barriers to Discharge: [...] LDL 95 07/06/2023 No results found for: [id number] , IRON , TIBC , C3 , [...] Planning TBD Signed Barrett Haider MD MS4 [facility] Medicine 07/09/2023 11: (more content not included)... [facility] 07-08-2023 Note ---- Attestation signed by [...] 07/08/23 0802 84/55 36.4 ???C (97.5 ???F) [facility] 67 21 98 % -- 07/08/23 [...] 86 QT Interval 466 QTC CALCULATION(BAZETT) 476 R-[place] 34 T Wave [place] [address] & Marked T wave abnormality, consider anterolateral ischemia Prolonged QT Abnormal ECG When compared with ECG of 06-JUL-2023 14:34, T wave inversion less evident in Lateral Lab Results Component Value Date CKTOTAL 36.0 07/06/2023 TROPONINI 0.12 () 07/06/2023 Complete Echo (TTE) w/wo Imaging Agent, Strain, 3D, Bubble Study Result Date: 06/29/2023 1 1 [facility] Heart Station [address] [place] [address] [phone] (fax) Echocardiogram-[facility] Name: VIVIAN VANN Study Date: 06/29/2023 12:30 PM B/P: 135 mmHg/89 mmHg HR: Date of : 1960 Location: [facility] Height: 67 in. Age: 63 year(s) [...] Valve: The mitr (more content not included)... [facility] 07-08-2023 Note Hospital Medicine Daily Progress Note - 07/08/2023 8:42 AM; Room: [address] [place] [address] Admission: 07/06/2023 12:25 AM; Length of stay: 2 days THE HOSPITALIST TEAM PREFERS TO USE Modulus FOR COMMUNICATION 7AM-7PM. IF I DO NOT RESPOND WITHIN 15 MINUTES, PLEASE PAGE ME/CALL THROUGH THE COMMUNICATIONS CONTROLLER. FROM 7PM-7AM, PLEASE PAGE [phone](COVR) Code Status: Full Code Barriers to Discharge: [...] LDL 95 07/06/2023 No results found for: [id number] , IRON , TIBC , C3 , [...] Planning TBD Signed Barrett Haider MD MS4 [facility] Medicine 07/08/2023 8:42 AM [facility] 07-07-2023 Note ---- Attestation signed by [...] 84 QT Interval 434 QTC CALCULATION(BAZETT) 451 R-[place] 23 T Wave [place] [address] & Marked [...] Bubble Study Result Date: 06/29/2023 1 1 [facility] Heart Station [address] [place], [place] [phone] (fax) E[facility]ocardiogram-[facility] Name: VIVIAN VANN Study Date: 06/29/2023 12:30 PM B/P: 135 mmHg/89 mmHg HR: Date of : 1960 Location: [facility] Height: 67 in. Age: 63 year(s) [...] abnormality. Right Ventricle: (more content not included)... [facility] 02-24-2024 Note Hospital Medicine Daily Progress Note - 07/07/2023 10:19 AM; Room: [address] [place] [address] Admission: 07/06/2023 12:25 AM; Length of stay: 1 days THE HOSPITALIST TEAM PREFERS TO USE Emme E2MS CHAT FOR COMMUNICATION 7AM-7PM. IF I DO NOT RESPOND WITHIN 15 MINUTES, PLEASE PAGE ME/CALL THROUGH THE COMMUNICATIONS CONTROLLER. FROM 7PM-7AM, PLEASE PAGE [phone](COVR) Code Status: Full Code Barriers to Discharge: [...] 4.6 3.7 CHLORIDE (more content not included)... [facility] 07-06-2023 Note communication receiv ed that Patient stating does not have transportation to return home at discharge At 07/02/2023 discharge, [facility] provided a one-time courtesy taxi cab transportation for Patient to return to her home (Patient's residence is 57 [place] [address]-way from [facility] and cost for taxi cab was $146); [facility] is not able to provide another taxi cab. The following information was printed and provided to the Patient to make her own transportation arrangements for once she is medically cleared for discharge: [facility] hospital address is [address], [place] [address] [employer] Medicare to ask if non-emergency medical transportation is a covered benefit of the specific plan (https://www.DemoHire/contact-us/[place] o/) Taxis in [place] (https://co.jonnie.nm.us/3086/Taxi) [employer] [phone] ([phone]) [employer] [phone] [facility] 07-06-2023 Note 07/06/23 1625 Referral Data Referral Source production utility worker Patient Information Primary Caregiver Self Activities [...] need to arrange for her transportation needs; technical publications writer provided printed information to Pt for local [employer] companies for Pt to consider; [facility] unable to pay for another one-time courtesy [employer] for 57miles one-way trip) [facility] 07-06-2023 Note 1526 technical publications writer attempted to meet with Pt to discuss discharge planning (including Patient will need to arrange her transportation once she is medically cleared to discharge to home); Patient not in bed; unable to complete [id number]-[id number] 1542 technical publications writer attempted to meet with Pt to discuss discharge planning (including Patient will need to arrange her transportation once she is medically cleared to discharge to home); Patient caring for toileting hygiene; unable to complete vxag-cl-iwse [facility] 07-06-2023 Note 07/06/23 1219 Admission Assessment [...] Discharge? Yes Does the patient have a caser in assigned to them through their insurance? No [...] to send link and activate MyChart? Yes [facility] 07-06-2023 Note ---- Attestation signed by [...] Progress Note - 07/06/2023 11:37 AM; Room: [address] [place] [address] Admission: 07/05/2023 11:50 PM; Length of stay: 1 days THE HOSPITALIST TEAM PREFERS TO USE Emme E2MS CHAT FOR COMMUNICATION 7AM-7PM. IF I DO NOT RESPOND WITHIN 15 MINUTES, PLEASE PAGE ME/CALL THROUGH THE COMMUNICATIONS CONTROLLER. FROM 7PM-7AM, PLEASE PAGE [phone](COVR) Code Status: Full Code Barriers to Discharge: [...] -Continue home medi (more content not included)... [facility] 07-06-2023 Note . Hospital Medicine History and Physical 07/06/2023 1:19 AM THE HOSPITALIST TEAM PREFERS TO USE Emme E2MS CHAT FOR COMMUNICATION 7AM-7PM. IF I DO NOT RESPOND WITHIN 15 MINUTES, PLEASE PAGE ME/CALL THROUGH THE COMMUNICATIONS CONTROLLER. FROM 7PM-7AM, PLEASE PAGE [phone](COVR) Chief Complaint No chief complaint on file. History of Present Illness Vivian Vann is an 63 y.o. female who came from home with CP. This is a 63 years old female lady with a medical history of hypertension, tobacco smoking, A-fib, CHF. Came into the [facility] as a direct admit transfer from [...] Bradycardia 07/06/2023 NSTEMI (non-ST elevated myocardial infarction) ([facility]) 06/29/2023 Other forms of angina pectoris 06/29/2023 Hypomagnesemia 06/29/2023 Acute midline low back pain without sciatica 06/29/2023 Coronary arteriosclerosis 11/24/2021 Hyperlipidemia 11/24/2021 Type 2 diabetes mellitus ([facility]) 11/24/2021 Acute non-ST segment elevation myocardial infarction ([facility]) 11/24/2021 Cigarette smoker 11/24/2021 Assessment and [...] this hospital stay by a member of [facility] Medicine. Past Medical History No past [...] (CARDIA) Difficulty of (more content not included)... [facility] 07-05-2023 Evaluation + Plan note Extrac [...] Reflex 07/05/23 * Drug Screen Urine 07/05/23 [facility]02-19-2024 NotePatient admitted to the hospital for: NSTEMI. Review of the last noted chart Echo from 06/29/2023 reports: EF 60%. Reported echo result does not qualify for Cardiac Rehab services per CMS eligibility criteria for CHF. Marline Suarez, RN, BSN Cardiopulmonary Rehab CoordinatorPaulding [facility]02-19-2024 Note07/02/23 1116 Referral Data Referral Source production utility worker Patient Information Primary Caregiver Self Activities of Daily Living Assistive Device Not applicable Living Arrangement (Current/Prior to Hospitalization) Private residence;Home self care Behavior Oriented Communication Talks;Understands speaking Discharge Planning Support Systems Therapist (planning discharge to home; communication rcvd Pt not wanting [facility] services) Type of Residence/Post Acute Needs Private residence Will patient need Precert for Post Acute needs? No Patient's goal for discharge home RucCC screened; Pt declining [facility], Consult resolved 1340 Communication received that Pt needing transportation to home since was transferred here from [facility], does not drive, lives alone, does not have friends or family who can transport ([phone]) PC to [employer]; from [address] [place] [address] [place] [address] will be $146 Service Dog Trainer provided verbal estimate to lawn service supervisor, verbal approval from lawn service supervisor 1408 taxi cab transportation arranged; bedside RN notified Confirmation #: [id number] Passenger: VIVIAN VANN Phone Number: [phone] Pickup Date/Time: 07/02/2023 3:00 PM Pickup Address: [facility], [address] [place] [address], [facility] Drop Off Address: [address] [place] [address]. Ride Notes: please pickup at [facility]02-19-2024 Note07/02/23 1017 Admission Assessment Questions [...] Discharge? Yes Does the patient have a caser in assigned to them through their insurance? No [...] able to send link and activate MyChart? [facility]02-19-2024 Note Attestation signed by Merritt [...] Value Ventricular Rate 61 Atrial Rate 61 HI Interval 150 QRS DURATION 88 QT Interval 476 QTC CALCULATION(BAZETT) 479 P [place] 68 R-[place] 25 T Wave [place] 128 Impression Normal sinus rhythm Right atrial [...] Bubble Study Result Date: 06/29/2023 1 1 [facility] Heart Station [address] [place] [address] [phone] (fax) E[facility]ocardiogram-[facility] Name: VIVIAN VANN Study Date: 06/29/2023 12:30 PM B/P: 135 mmHg/89 mmHg HR: Date of : 1960 Location: [facility] Height: 67 in. Age: 63 year(s) [...] ventricular systolic function. Dop (more content not included)...[facility]02-18-2024 NoteHospital Medicine Daily Progress Note - 07/01/2023 12:00 PM; Room: [address] [place] [address] Admission: 06/29/2023 11:04 AM; Length of stay: 2 days THE HOSPITALIST TEAM PREFERS TO USE Emme E2MS CHAT FOR COMMUNICATION 7AM-7PM. IF I DO NOT RESPOND WITHIN 15 MINUTES, PLEASE PAGE ME/CALL THROUGH THE COMMUNICATIONS CONTROLLER. FROM 7PM-7AM, PLEASE PAGE [phone](COVR) Code Status: Full Code Barriers to Discharge: [...] LDL 114 11/02/2021 No results found for: [id number] , IRON , TIBC , C3 , C4 , WENDI , CANCA , ASO , PSA , CEA , CA125 , CA199 , AFP , CA153 Imaging ECG 12 lead Normal sinus rhythm Right atrial (more content not included)...[facility] 07-01-2023 Note Attestation signed by Merritt [...] Value Ventricular Rate 61 Atrial Rate 61 HI Interval 150 QRS DURATION 88 QT Interval 476 QTC CALCULATION(BAZETT) 479 P [place] 68 R-[place] 25 T Wave [place] 128 Impression Normal sinus rhythm Right atrial [...] Bubble Study Result Date: 06/29/2023 1 1 [facility] Heart Station [address] [place], [place] [phone] (fax) Echocardiogram-[facility] Name: VIVIAN VANN Study Date: 06/29/2023 12:30 PM B/P: 135 mmHg/89 mmHg HR: Date of : 1960 Location: [facility] Height: 67 in. Age: 63 year(s) [...] Right Ventricle: The r (more content not included)...[facility]02-17-2024 Note Attestation signed by Merritt Guerrero [...] Value Ventricular Rate 61 Atrial Rate 61 HI Interval 150 QRS DURATION 88 QT Interval 476 QTC CALCULATION(BAZETT) 479 P [place] 68 R-[place] 25 T Wave [place] 128 Impression Normal sinus rhythm Right atrial [...] Bubble Study Result Date: 06/29/2023 1 1 [facility] Heart Station [address] [place] [address] [phone] (fax) [facility] Name: VIVIAN VANN Study Date: 06/29/2023 12:30 PM B/P: 135 mmHg/89 mmHg HR: Date of : 1960 Location: [facility] Height: 67 in. Age: 63 year(s) [...] Mild Mild N (more content not included)... [facility]02-17-2024 NoteHospital Medicine Daily Progress Note - 06/30/2023 11:32 AM; Room: [address] [place] [address] Admission: 06/29/2023 11:04 AM; Length of stay: 1 days THE HOSPITALIST TEAM PREFERS TO USE Emme E2MS CHAT FOR COMMUNICATION 7AM-7PM. IF I DO NOT RESPOND WITHIN 15 MINUTES, PLEASE PAGE ME/CALL THROUGH THE COMMUNICATIONS CONTROLLER. FROM 7PM-7AM, PLEASE PAGE [phone](COVR) Code Status: Full Code Barriers to Discharge: [...] Principal Problem: NSTEMI (non-ST elevated myocardial infarction) ([facility]) Active Problems: Hyperlipidemia Type 2 diabetes [...] LDL 114 11/02/2021 No results found for: [id number] , IRON , TIBC , C3 , C4 , WENDI , CANCA , ASO , PSA , CEA , CA125 , CA199 , AFP , CA153 Imaging ECG 12 lead Normal sinus rhythm Right atrial enlargement ST & T wave abnormality, consider ante (more content not included)...[facility]02-16-2024 NotePatient: Vivian Vann Procedure Information Date/Time: 06/29/23 1655 Procedure: Coronary angiography Location: [facility] PHYSIOTHERAPY ASSISTANT 3 / [facility] (Cath) Providers: Ortiz [...] who. Plan discussed with attending. [facility] Note Hospital Medicine History and Physical 06/29/2023 12:51 PM THE HOSPITALIST TEAM PREFERS TO USE Emme E2MS CHAT FOR COMMUNICATION 7AM-7PM. IF I DO NOT RESPOND WITHIN 15 MINUTES, PLEASE PAGE ME/CALL THROUGH THE COMMUNICATIONS CONTROLLER. FROM 7PM-7AM, PLEASE PAGE [phone](COVR) Chief Complaint Direct admission from [facility] for NSTEMI requiring cardiac cath History of Present Illness Vivian Vann is an 63 y.o. female who came from [facility] as direct asmission for NSTEMI. Patient presented 06/28/23 to [place] ED for c/o chest pain and lower back pain. Patient troponin level found to be 557 and EKG showed new ischemia and inverted T-waves, NSTEMI. She was given nitroglycerin and started on heparin drip. Patient is 1 year s/p stent placement at [facility] on plavix and aspirin. Dr. Chapa with cardiology agreed to patient transfer here to [facility] with hospital medicine admitting and cardiology [...] Low back pending. Laboratory workup here at [facility] shows CBC unremarkable w/ exception of [...] nursing note reviewed. Exam conducted with a agricultural services director present. Constitutional: General: She is not in [...] Date Noted NSTEMI (non-ST elevated myocardial infarction) ([facility]) 06/29/2023 Assessment and Plan Chest pain Low Back Pain NSTEMI -Troponin 557 at [facility], troponin now 0.07 - aPTT 67.3, BN [...] Heparin drip with titratio (more content not included)...[facility]04-05-2023 NoteMicrobiology PROCEDURE: Blood Culture Charcoal [R1] [...] R1: [facility] at: [facility], [address] [place] [address], [address] [place] [address], IcvqpnKettering HealthComment on above:Performed By: #### [id number] ####[address] [id number] NoteMicrobiology PROCEDURE: Blood Culture Charcoal [R1] SOURCE: Blood BODY SITE: Arm L COLLECTED DATE/TIME: 08/09/2022 14:09 EDT RECEIVED DATE/TIME: 08/09/2022 14:17 EDT START DATE/TIME: 08/09/2022 14:17 EDT FREE TEXT SOURCE: lt ac Nic PA-C, Clinton C Nic PA-C, Clinton C FINAL REPORTS Final Report [] Verified Date/Time: 08/16/2022 15:58 EDT No growth at 7 days. Performing Locations R1: This test was performed at: [facility], [address] [place] [address], [id number] [place] [address], NyvulbKettering HealthComment on above:Performed By: #### [id number] ####[place] [id number] Hospital Discharge instructions Patient Education 08/09/2022 16:50:59 [...] Follow these instructions at home: Medicines Take sdak-psc-aqheucn and prescription medicines (inhaled or pills) only [...] 02/07/2006 Document Revised: 04/12/2018 Document Reviewed: 06/04/2017 [employer] Patient Education 2020 3D Forms. Follow Up Care 08/09/2022 13:09:28 With:Екатерина Jakbo Address: [address] [place], [place] [id number] Business (1) When:08/12/2022 16:50:37 Comments:Call the office [...] you develop any new or worsening symptoms. [facility]03-29-2023 Evaluation + Plan noteExtracted from: Title:ED Note [...] day(s), # 14 tab(s), Refills(s) 0, Pharmacy: [facility], 170.2, cm, 08/09/22 13:13:00 EDT, Height/Length [...] day(s), # 15 tab(s), Refills(s) 0, Pharmacy: [facility], 170.2, cm, 08/09/22 13:13:00 EDT, Height/Length [...] Charcoal 08/09/22 * Blood Culture Charcoal 08/09/22 [facility]06-23-2022 NoteMR#: [id number] I [facility] Pt. Name: Vivian Vann Admitted: 11/01/2021 Discharged: 11/03/2021 Date of : 1960 Physician: Tamie Fajardo MD DISCHARGE SUMMARY PRINCIPAL DIAGNOSIS: Wip-YI-krtwaqirb myocardial infarction. SECONDARY DIAGNOSES: 1. Questionable small subsegmental PE in the right lower lobe, favored to be chronic per CT angio done outside facility. 2. Peptic ulcer disease. 3. Depression. 4. Chronic obstructive pulmonary disease. 5. THC use. 6. Nicotine use. HOSPITAL COURSE: Again, the patient was admitted to the hospital on 11/01/2021, with chest pain and she was found to have a adc-OH-zlnvagjsx AL. The patient underwent cardiac catheterization and had [...] Fajardo MD Date Trans: 11/03/2021 01:10 P/laura [id number] cc: Gasper Avendano M.D. [facility] [address] Екатерина Robert M.D. [facility] [address] [facility]., [place] [facility] [id number] [facility] Narrative No data available for this section [facility] No data available for this section [facility] No data available for this section [facility] Summary Purpose Family History No Family History [...] DATE CREATED AUTHOR AUTHOR'S ORGANIZ ATION 01/06/2022 [facility] DATE CREATED AUTHOR AUTHOR'S ORGANIZ ATION 09/05/2022 [facility] DATE CREATED AUTHOR AUTHOR'S ORGANIZ ATION 07/13/2023 [facility] DATE CREATED AUTHOR AUTHOR'S ORGANIZ ATION 08/04/2023 [facility] DATE CREATED AUTHOR AUTHOR'S ORGANIZ ATION 09/11/[address] [facility] Patient Care team informatio n (unrecognized section and content) Personnel Name: Екатерина Robert MD Address: Address: [address] [place] [address] Personnel Name: Екатерина Robert MD Address: Address: [address] [place] [address] FOR RECORDS PERTAINING TO PATIENTS WHO ARE [...] BE BASED ON THE PRIMARY CLINICAL RECORDS. [facility]. provides no warranty or guarantee of the accuracy or completeness of information in this document.
[2024-12-04 21:54] LABS: Anion Gap 19.3
[2024-12-04 21:57] LABS: Alanine Aminotransferase 27 U/L (14-59); Albumin Globulin Ratio 0.8; Albumin Level 4.0 g/dL (3.4-5.0); Alkaline Phosphatase 105 U/L (46-116); Aspartate Amino Transferase 31 U/L (15-37); Blood Urea Nitrogen 26.0 mg/dL (7.0-18.0); Calcium 10.9 mg/dL (8.5-10.1); Carbon Dioxide 24.5 mmol/L (21.0-32.0); Chloride 94 mmol/L (98-107); Estimated GFR (African America 23 (>=60 mL/min/1.73m^2); Estimated GFR (Non-African Ame 19 (>=60 mL/min/1.73m^2); Globulin 4.8 g/dL; Glucose 222 mg/dL (74-106); Potassium 4.8 mmol/L (3.5-5.1); Sodium 133 mmol/L (136-145); Total Protein 8.8 g/dL (6.4-8.2)
[2024-12-04 22:03] LABS: Basophils Abs Manual 0.00 10^3/uL (0.00-0.10); Basophils Percent Manual 0.0 % (0.2-2.0); Eosinophils Absolute Manual 0.00 10^3/uL (0.00-0.70); Eosinophils Percent Manual 0.0 % (0.9-7.0); Lymphocytes Absolute Manual 2.54 10^3/uL (1.20-3.80); Lymphocytes Percent Manual 14.0 % (20.5-60.0); Monocytes Absolute Manual 1.82 10^3/uL (0.30-0.80); Monocytes Percent Manual 10.0 % (1.7-12.0); Segmented Neut Absolute Manual 13.83 10^3/uL (1.4-6.5); Segmented Neutrophils % Manual 76.0 (43.0-75.0)
--- NOTE | 2024-12-04 22:06 | CT_ITS ---
The [address] [address] Patient Name: EMERY JETT MRN: [id number] date: 1960 Sex: F Assigned Patient Location: ER Current Patient Location: ER Accession/Order Number: [id number] Exam Date: 12/04/2024 23:27 Report Date: 12/04/2024 23:36 At the request of: COSME CASTRO MD Procedure: CT abdomen pelvis wo con CT chest abdomen pelvis without contrast TECHNIQUE: Axial imaging with 2-D reconstruction. The CT exam was performed using one or more the following dose reduction techniques: Automated exposure control, adjustment of the MA and/or Kv according to patient size, or use of the iterative reconstruction technique. History: Abdominal pain COMPARISON: 05/23/2024 THYROID: No significant thyroid abnormality identified. AIRWAY: Central airway is patent. ESOPHAGUS: Esophagus normal course and caliber. HEART: Heart is not enlarged. Cardiac device present PERICARDIAL EFFUSION: None CORONARY ARTERY CALCIFICATION: None MEDIASTINUM: Nonenlarged mediastinal lymph nodes identified. HILAR REGION: No hilar mass or adenopathy is seen. THORACIC AORTA: No aneurysm. No atherosclerosis LUNG INTERSTITIUM: No infiltrate or congestion identified. Mild atelectasis. PLEURAL EFFUSION No pleural effusion identified. PNEUMOTHORAX: No pneumothorax seen. LUNG NODULE: No lung nodules identified. CHEST WALL: No chest wall abnormality seen. The bony chest intact. LIVER: No hepatic mass or intrahepatic biliary ductal dilatation is identified. Normal density of the liver parenchyma identified. GALLBLADDER: No gallbladder abnormalities identified. BILE DUCTS: No biliary duct dilatation identified. SPLEEN: Normal PANCREAS: Unremarkable ADRENAL GLANDS: The adrenal glands are unremarkable. KIDNEYS: Unremarkable ABDOMINAL AORTA: The abdominal aorta is normal. RETROPERITONEUM: No significant retroperitoneal abnormalities identified. STOMACH:Moderate distention of fluid-filled stomach. SMALL BOWEL: The small bowel loops are nondistended. APPENDIX: Appendectomy COLON: There is no colitis or diverticulitis. URINARY BLADDER: Urinary bladder is unremarkable. REPRODUCTIVE STRUCTURES: The reproductive structures are unremarkable. FREE AIR: None FREE FLUID: None ABDOMINAL WALL: No subcutaneous soft tissue abnormality identified. INGUINAL HERNIA: None BONES:Humeral head osteonecrosis. Mild scoliosis. Lower lumbar degenerative change CT/CT chest wo con IMPRESSION: Moderate distention of fluid-filled stomach. No focal inflammatory changes. No acute chest findings. No bowel obstruction. PRELIMINARY RESULTS: None given Impression dictated by: Trev Valencia M.D. 12/04/2024 11:36 PM Dictation Location: [employer] Electronically authenticated by: [id number] Y Date: 12/04/2024 23:36
--- NOTE | 2024-12-04 22:06 | CT_ITS ---
The [address] [address] Patient Name: EMERY JETT MRN: [id number] date: 1960 Sex: F Assigned Patient Location: ER Current Patient Location: ER Accession/Order Number: [id number] Exam Date: 12/04/2024 23:27 Report Date: 12/04/2024 23:36 At the request of: COSME CASTRO MD Procedure: CT abdomen pelvis wo con CT chest abdomen pelvis without contrast TECHNIQUE: Axial imaging with 2-D reconstruction. The CT exam was performed using one or more the following dose reduction techniques: Automated exposure control, adjustment of the MA and/or Kv according to patient size, or use of the iterative reconstruction technique. History: Abdominal pain COMPARISON: 05/23/2024 THYROID: No significant thyroid abnormality identified. AIRWAY: Central airway is patent. ESOPHAGUS: Esophagus normal course and caliber. HEART: Heart is not enlarged. Cardiac device present PERICARDIAL EFFUSION: None CORONARY ARTERY CALCIFICATION: None MEDIASTINUM: Nonenlarged mediastinal lymph nodes identified. HILAR REGION: No hilar mass or adenopathy is seen. THORACIC AORTA: No aneurysm. No atherosclerosis LUNG INTERSTITIUM: No infiltrate or congestion identified. Mild atelectasis. PLEURAL EFFUSION No pleural effusion identified. PNEUMOTHORAX: No pneumothorax seen. LUNG NODULE: No lung nodules identified. CHEST WALL: No chest wall abnormality seen. The bony chest intact. LIVER: No hepatic mass or intrahepatic biliary ductal dilatation is identified. Normal density of the liver parenchyma identified. GALLBLADDER: No gallbladder abnormalities identified. BILE DUCTS: No biliary duct dilatation identified. SPLEEN: Normal PANCREAS: Unremarkable ADRENAL GLANDS: The adrenal glands are unremarkable. KIDNEYS: Unremarkable ABDOMINAL AORTA: The abdominal aorta is normal. RETROPERITONEUM: No significant retroperitoneal abnormalities identified. STOMACH:Moderate distention of fluid-filled stomach. SMALL BOWEL: The small bowel loops are nondistended. APPENDIX: Appendectomy COLON: There is no colitis or diverticulitis. URINARY BLADDER: Urinary bladder is unremarkable. REPRODUCTIVE STRUCTURES: The reproductive structures are unremarkable. FREE AIR: None FREE FLUID: None ABDOMINAL WALL: No subcutaneous soft tissue abnormality identified. INGUINAL HERNIA: None BONES:Humeral head osteonecrosis. Mild scoliosis. Lower lumbar degenerative change CT/CT abdomen pelvis wo con IMPRESSION: Moderate distention of fluid-filled stomach. No focal inflammatory changes. No acute chest findings. No bowel obstruction. PRELIMINARY RESULTS: None given Impression dictated by: Trev Valencia M.D. 12/04/2024 11:36 PM Dictation Location: [facility] Electronically authenticated by: [id number] Y Date: 12/04/2024 23:36
[2024-12-04] MEDS: MORPHINE SULFATE 4 MG/ML VIAL IV (23:11)
[2024-12-05] VITALS (13 sets, daily range): BP systolic 91–134; BP diastolic 63–98; PULSE 64–95; TEMP 36.6–36.8; O2SAT 91–95; BMI 22.5
[2024-12-05] MEDS: METOCLOPRAMIDE HCL 10 MG/2 ML VIAL IVP (00:36)
[2024-12-05] MEDS: PANTOPRAZOLE SODIUM 40 MG VIAL IV (00:36)
[2024-12-05] MEDS: 0.9 % SODIUM CHLORIDE 1,000 ML 1000 ML IV (00:36)
--- OUTSIDE RECORDS SUMMARY | 2024-12-05 01:39 | XMS_ITS | CCD ---
Author Organization [facility] ion [facility] Care Team Providers Care Karate Teacher Name Role Phone KEISHA DORADO JR Attending [...] Unavailable JOSELINEY ., DR WILLAMS Attending Unavailable JAKBO ., DR WILLAMS Admitting Unavailable JAKOB ., [...] Admitting Unavailable GANGWANI, BARRETT LARSON Consulting Unavailab DNAUTA Connors Attending Unavailable VINAY CHAPA Referring Unavailable [...] source) bee venom Drug allergy (disorder) 1 [facility] Repository (1 source) house dust allergenic extract; 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: [HOUSE DUST] Drug Allergy 4 [facility] Repository (1 source) BEE VENOM PROTEIN (HONEY BEE); 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: [BEE VENOM PROTEIN (HONEY BEE)] Propensity to adverse reactions to drug (disorder) 4 [facility] Repository (1 source) HAY FEVER AND ALLERGY RELIEF; 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: [HAY FEVER AND ALLERGY RELIEF] Propensity to adverse reactions to drug (disorder) 4 [facility] Repository Medications Current Medications Medication [...] oral solution (2 sources) alpha-Adrenergic Agonist, Uncompetitive Z-fuwofk-I-aspart ate Receptor Antagonist, Sigma-1 Agonist Start: 08-10-19 [...] day(s), # 14 tab(s), Refills(s) 0, Pharmacy: [facility] 1155, 170.2, cm, 08/09/22 13:13:00 EDT, Height/Length [...] day(s), # 15 tab(s), Refills(s) 0, Pharmacy: 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] Onset: 3 Episodic Other aftercare (1 source) intermediate card tender (current) use of antithrombotics/antipl atelets; 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: [DETENTION ANTITHROMBOT/ANTIPLATL ETS] Onset: 3 Episodic Other aftercare (1 source) prison (current) use of oral hypoglycemic drugs; 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: [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 Barriers to Discharge: Patient is medically ready for discharge at this time. AVS has been completed. Patient will discharge to home. No further OTM needs at this time. [facility] will continue to follow patient [...] appropriate for patient?: Yes New Consults: Normal [facility] 30 The patient is Moderately [...] and maintained or improved Outcome: Progressing Normal [facility] BASIC METABOLIC PANELon 07-14 Anion gap [Moles/Vol] 13 mmol/L Normal 7-20 [facility] Comment on above: Performed By: #### L [id number] ####[facility] (BEAKER)[address] [place] [address] Calcium [Mass/Vol] 9.0 mg/dL Normal 8.6-10.3 [facility] Comment on above: Performed By: #### L [id number] ####[facility] (BEAKER)[address] [place] [address] Chloride [Moles/Vol] 97 mmol/L Low 98-107 [facility] Comment on above: Performed By: #### L [id number] ####[facility] (BEAKER)[address] [place] [address] CO2 [Moles/Vol] 29 mmol/L Normal 21-31 [facility] Comment on above: Performed By: #### L [id number] ####[facility] ([facility])[address] [place] [address] Creatinine [Mass/Vol] 1.06 mg/dL Normal 0.60-1.20 [facility] Comment on above: Performed By: #### L [id number] ####[facility] ([facility])[address] [place] [address] GLOMERULAR FILTRATION RATE ML/MIN/1.73 SQ M.PREDICTED 59.4 mL/min/1.73m*2 Low >60.0 [facility] Comment on above: Result Comment: [facility]???s estimated glomerular filtration rate (eGFR) [...] of individuals. Performed By: #### L [id number] ####[facility] ([facility])[address] [place] [address] Glucose [Mass/Vol] 178 mg/dL High 70-100 [facility] Comment on above: Performed By: #### L [id number] ####[facility] ([facility])[address] [place] [place] [address] Potassium [Moles/Vol] 4.3 mmol/L Normal 3.5-5.1 [facility] Comment on above: Performed By: #### L [id number] ####[facility] ([facility])[address] [place] [address] Sodium [Moles/Vol] 135 mmol/L Low 136-145 [facility] Comment on above: Performed By: #### L [id number] ####[facility] (BEAKER)[address] [place] [address] Urea nitrogen [Mass/Vol] 20 mg/dL Normal 7-25 [facility] Comment on above: Performed By: #### L [id number] ####[facility] (BEAKER)[address] [place] [address] UREA NITROGEN/CREATININE (MASS RATIO) IN SER/PLAS 18.9 Normal [facility] Comment on above: Performed By: #### L [id number] ####[facility] ([facility] [place] [address] CBCon 08-11-2023 Erythrocyte distribution width (RBC) [Ratio] 17.0 % High 11.5-15.0 [facility] Comment on above: Performed By: #### L [id number] #### [facility] ([facility] [address] [place] [address] ERYTHROCYTE MEAN CORPUSCULAR HEMOGLOBIN CONCENTRATION (G/DL) BY AUTOMATED 31.6 g/dL Low 32.0-35.0 [facility] Comment on above: Performed By: #### L [id number] #### [facility] ([facility] [address] [place] [address] Hematocrit (Bld) [Volume fraction] 40.8 % Normal 36.0-48.0 [facility] Comment on above: Performed By: #### L [id number] #### [facility] (BEAKER) [address] [place] [address] Hemoglobin (Bld) [Mass/Vol] 12.9 g/dL Normal 12.0-15.0 [facility] Comment on above: Performed By: #### L [id number] #### [facility] (BEAKER) [address] [place] [address] MCH (RBC) [Entitic mass] 28.0 pg Normal 27.0-33.0 [facility] Comment on above: Performed By: #### L [id number] #### [facility] (BEAKER) [address] [place] [address] MCV (RBC) [Entitic vol] 88.5 fL Normal 82.0-98.0 [facility] Comment on above: Performed By: #### L [id number] #### [facility] ([facility]) [address] [place] [address] PLATELETS (10*3/UL) IN BLOOD AUTOMATED COUNT 239 10*3/uL Normal 150-400 [facility] Comment on above: Performed By: #### L [id number] #### [facility] ([facility]) [address] [place] [address] RBC (Bld) [#/Vol] 4.61 10*6/uL Normal 3.80-5.00 [facility] Comment on above: Performed By: #### L [id number] #### [facility] ([facility]) [address] [place] [address] WBC (Bld) [#/Vol] 7.21 10*3/uL Normal 4.00-10.60 [facility] Comment on above: Performed By: #### L [id number] #### [facility] ([facility]) [address] [place] [address] NURSNOTEon 08-11-2023 NURSNOTE Pt discharged via wheelchair without incident [facility] NURSNOTE AVS reviewed with patient, pt verifies understanding Normal [facility] 08-10-2023 30 The patient is Moderately [...] and maintained or improved Outcome: Progressing Normal [facility] HPon 08-10-2023 History Of Present Illness [...] initial encounter Reposition lead Loree Chance MD [facility] NURSNOTEon 08-10-2023 NURSNOTE CHG wipes and betadine nasal swabs completed. [facility] 07-13-2023 36 Pts phone line is no t working [facility] 07-12-2023 36 Unable to reach pt o r leave message, phone line not in service [facility] 36 Patients phone is no t in working order. Tried calling pts ER contact but it is a food pantry and was only a VM option. Did not leave message. [facility] 07-11-2023 30 The patient is Moderately Stable - Low risk of patient condition declining or worsening The patient's goals for the shift include pain control The clinical goals for the shift include maintain pacemaker precautions Over the shift, the patient did not make progress toward the following goals. Barriers to progression include na. Recommendations to address these barriers include na. [facility] 30 The patient is Moderately Stable [...] safe level of function Outcome: Progressing Normal [facility] BASIC METABOLIC PANELon - Anion gap [Moles/Vol] 15 mmol/L Normal 7-20 [facility] Comment on above: Performed By: #### L [id number] #### [facility] ([facility]) [address] [place] [address] Calcium [Mass/Vol] 9.4 mg/dL Normal 8.6-10.3 [facility] Comment on above: Performed By: #### L [id number] #### [facility] (AKER) [address] [place] [address] Chloride [Moles/Vol] 97 mmol/L Low 98-107 [facility] Comment on above: Performed By: #### L [id number] #### [facility] (BEAKER) [address] [place] [address] CO2 [Moles/Vol] 27 mmol/L Normal 21-31 [facility] Comment on above: Performed By: #### L [id number] #### [facility] (AKER) [address] [place] [address] Creatinine [Mass/Vol] 1.15 mg/dL Normal 0.60-1.20 [facility] Comment on above: Performed By: #### L [id number] #### [facility] ([facility]) [address] [place] [address] GLOMERULAR FILTRATION RATE ML/MIN/1.73 SQ M.PREDICTED 53.9 mL/min/1.73m*2 Low >60.0 [facility] Comment on above: Result Comment: [facility]???s estimated glomerular filtration rate (eGFR) [...] individuals. Performed By: #### L [id number] #### [facility] ([facility]) [address] [place] [address] Glucose [Mass/Vol] 143 mg/dL High 70-100 [facility] Comment on above: Performed By: #### L [id number] #### [facility] ([facility]) [address] [place] [address] Potassium [Moles/Vol] 3.9 mmol/L Normal 3.5-5.1 [facility] Comment on above: Performed By: #### L [id number] #### [facility] ([facility]) [address] [place] [address] Sodium [Moles/Vol] 135 mmol/L Low 136-145 [facility] Comment on above: Performed By: #### L [id number] #### [facility] ([facility]) [address] [place] [address] Urea nitrogen [Mass/Vol] 32 mg/dL High 7-25 [facility] Comment on above: Performed By: #### L [id number] #### [facility] ([facility]) [address] [place] [address] UREA NITROGEN/CREATININE (MASS RATIO) IN SER/PLAS 27.8 Normal [facility] Comment on above: Performed By: #### L [id number] #### [facility] ([facility]) [address] [place] [address] CBC WITH AUTO DIFFERENTIALon 07-11-2023 Basophils (Bld) [#/Vol] 0.03 10*3/uL Normal 0.00-0.20 [facility] Comment on above: Performed By: #### L [id number] #### [facility] ([facility]) [address] [place] [address] Basophils/100 WBC (Bld) 0.3 % Normal 0.0-1.0 [facility] Comment on above: Performed By: #### L [id number] #### [facility] ([facility]) [address] [place] [address] Eosinophils (Bld) [#/Vol] 0.32 10*3/uL Normal 0.00-0.50 [facility] Comment on above: Performed By: #### L [id number] #### [facility] ([facility]) [address] [place] [address] Eosinophils/100 WBC (Bld) 2.8 % Normal 0.0-6.0 [facility] Comment on above: Performed By: #### L [id number] #### [facility] ([facility]) [address] [place] [address] Erythrocyte distribution width (RBC) [Ratio] 15.3 % High 11.5-15.0 [facility] Comment on above: Performed By: #### L [id number] #### [facility] ([facility]) [address] [place] [address] ERYTHROCYTE MEAN CORPUSCULAR HEMOGLOBIN CONCENTRATION (G/DL) BY AUTOMATED 32.0 g/dL Normal 32.0-35.0 [facility] Comment on above: Performed By: #### L [id number] #### [facility] ([facility]) [address] [place] [address] Hematocrit (Bld) [Volume fraction] 40.9 % Normal 36.0-48.0 [facility] Comment on above: Performed By: #### L [id number] #### [facility] (BEAKER) [address] [place] [address] Hemoglobin (Bld) [Mass/Vol] 13.1 g/dL Normal 12.0-15.0 [facility] Comment on above: Performed By: #### L [id number] #### [facility] ([facility]) [address] [place] [address] Immature granulocytes (Bld) [#/Vol] 0.04 10*3/uL Normal 0.00-0.20 [facility] Comment on above: Performed By: #### L [id number] #### [facility] ([facility]) [address] [address] Immature granulocytes/100 WBC (Bld) 0.3 % Normal 0.0-1.0 [facility] Comment on above: Performed By: #### L [id number] #### [facility] ([facility]) [address] [place] [address] Lymphocytes (Bld) [#/Vol] 3.16 10*3/uL Normal 1.20-4.00 [facility] Comment on above: Performed By: #### L [id number] #### [facility] ([facility]) [address] [place] [address] Lymphocytes/100 WBC (Bld) 27.4 % Normal 20.0-45.0 [facility] Comment on above: Performed By: #### L [id number] #### [facility] ([facility]) [address] [address] MCH (RBC) [Entitic mass] 27.9 pg Normal 27.0-33.0 [facility] Comment on above: Performed By: #### L [id number] #### [facility] (BEAKER) [address] [address] MCV (RBC) [Entitic vol] 87.0 fL Normal 82.0-98.0 [facility] Comment on above: Performed By: #### L [id number] #### [facility] (BEAKER) [address] [place] [address] Monocytes (Bld) [#/Vol] 0.85 10*3/uL Normal 0.10-1.00 [facility] Comment on above: Performed By: #### L [id number] #### [facility] (BEAKER) [address] [place] [address] Monocytes/100 WBC (Bld) 7.4 % Normal 5.0-12.0 [facility] Comment on above: Performed By: #### L [id number] #### [facility] (BEAKER) [address] [place] [address] Neutrophils (Bld) [#/Vol] 7.12 10*3/uL Normal 1.60-7.60 [facility] Comment on above: Performed By: #### L [id number] #### [facility] ([facility]) [address] [place] [address] Neutrophils/100 WBC (Bld) 61.8 % Normal 40.0-72.0 [facility] Comment on above: Performed By: #### L [id number] #### [facility] ([facility]) [address] [place] [address] NRBC (PER 100 WBCS) BY AUTOMATED COUNT 0.0 % Normal 0 [facility] Comment on above: Performed By: #### L [id number] #### [facility] (BEAKER) [address] [place] [address] PLATELETS (10*3/UL) IN BLOOD AUTOMATED COUNT 339 10*3/uL Normal 150-400 [facility] Comment on above: Performed By: #### L [id number] #### [facility] (BEAKER) [address] [place] [address] RBC (Bld) [#/Vol] 4.70 10*6/uL Normal 3.80-5.00 [facility] Comment on above: Performed By: #### L [id number] #### [facility] (BEAKER) [address] [place] [address] WBC (Bld) [#/Vol] 11.52 10*3/uL High 4.00-10.60 [facility] Comment on above: Performed By: #### L [id number] #### [facility] (BEAKER) [address] [place] [address] 30on 07-10-2023 30 Problem: Pain - Adul [...] complex ne (more content not included)... Normal [facility] 30 Daily Case Managemen t [...] Consultation Consultation and Management 07/06/23 1050 Normal [facility] 30 The patient is Moderately [...] and behaviors that affect risk of falls Bryan fall precautions as indicated by assessment Educate patient/family on patient safety, including physical limitations Instruct patient to call for assistance with activity based on assessment Modify environment to reduce risk of injury Consider OT/PT consult to assist with strengthening/mobilit y Problem: Discharge Planning Goal: Discharge to home or other facility with appropriate resources Outcome: Progressing Flowsheets (Taken 07/09/2023 0815 by Emerald Curtis, JSEU) Discharge to home or other facility with [...] and prevent overall improvement and discharge Normal [facility] BASIC METABOLIC PANELon - Anion gap [Moles/Vol] 13 mmol/L Normal 7-20 [facility] Comment on above: Performed By: #### L [id number] ####[facility] (BEAKER)[address] [place] [address] Calcium [Mass/Vol] 9.9 mg/dL Normal 8.6-10.3 [facility] Comment on above: Performed By: #### L [id number] ####[facility] (BEAKER)[address] [place] [address] Chloride [Moles/Vol] 97 mmol/L Low 98-107 [facility] Comment on above: Performed By: #### L [id number] ####[facility] (BEAKER)[address] [place] [address] CO2 [Moles/Vol] 30 mmol/L Normal 21-31 [facility] Comment on above: Performed By: #### L [id number] ####[facility] (BEAKER)[address] [place] [address] Creatinine [Mass/Vol] 1.06 mg/dL Normal 0.60-1.20 [facility] Comment on above: Performed By: #### L [id number] ####[facility] (BEAKER)[address] [place] [address] GLOMERULAR FILTRATION RATE ML/MIN/1.73 SQ M.PREDICTED 59.4 mL/min/1.73m*2 Low >60.0 [facility] Comment on above: Result Comment: [facility]???s estimated glomerular filtration rate (eGFR) [...] of individuals. Performed By: #### L [id number] ####[facility] ([facility])[address] [place] [address] Glucose [Mass/Vol] 139 mg/dL High 70-100 [facility] Comment on above: Performed By: #### L [id number] ####[facility] ([facility])[address] [place] [address] Potassium [Moles/Vol] 3.9 mmol/L Normal 3.5-5.1 [facility] Comment on above: Performed By: #### L [id number] ####[facility] ([facility])[address] [place] [address] Sodium [Moles/Vol] 136 mmol/L Normal 136-145 [facility] Comment on above: Performed By: #### L [id number] ####[facility] ([facility] [place] [address] Urea nitrogen [Mass/Vol] 23 mg/dL Normal 7-25 [facility] Comment on above: Performed By: #### L [id number] ####[facility] ([facility] [place] [address] UREA NITROGEN/CREATININE (MASS RATIO) IN SER/PLAS 21.7 Normal [facility] Comment on above: Performed By: #### L [id number] ####[facility] ([facility])[address] [place] [address] CBC WITH AUTO DIFFERENTIALon 07-10-2023 Basophils (Bld) [#/Vol] 0.02 10*3/uL Normal 0.00-0.20 [facility] Comment on above: Performed By: #### L [id number] ####[facility] (BEAKER)[address] [place] [address] Basophils/100 WBC (Bld) 0.2 % Normal 0.0-1.0 [facility] Comment on above: Performed By: #### L [id number] ####[facility] (BEAKER)[address] [place] [address] Eosinophils (Bld) [#/Vol] 0.53 10*3/uL High 0.00-0.50 [facility] Comment on above: Performed By: #### L [id number] ####[facility] (BEAKER)[address] [place] [address] Eosinophils/100 WBC (Bld) 5.0 % Normal 0.0-6.0 [facility] Comment on above: Performed By: #### L [id number] ####[facility] (BEAKER)[address] [place] [address] Erythrocyte distribution width (RBC) [Ratio] 15.3 % High 11.5-15.0 [facility] Comment on above: Performed By: #### L [id number] ####[facility] (BEAKER)[address] [place] [address] ERYTHROCYTE MEAN CORPUSCULAR HEMOGLOBIN CONCENTRATION (G/DL) BY AUTOMATED 32.9 g/dL Normal 32.0-35.0 [facility] Comment on above: Performed By: #### L [id number] ####[facility] (BEAKER)[address] [place] [address] Hematocrit (Bld) [Volume fraction] 42.6 % Normal 36.0-48.0 [facility] Comment on above: Performed By: #### L [id number] ####[facility] (BEAKER)[address] [place] [address] Hemoglobin (Bld) [Mass/Vol] 14.0 g/dL Normal 12.0-15.0 [facility] Comment on above: Performed By: #### L [id number] ####[facility] ([facility] [place] [address] Immature granulocytes (Bld) [#/Vol] 0.02 10*3/uL Normal 0.00-0.20 [facility] Comment on above: Performed By: #### L [id number] ####[facility] ([facility])[address] [place] [address] Immature granulocytes/100 WBC (Bld) 0.2 % Normal 0.0-1.0 [facility] Comment on above: Performed By: #### L [id number] ####[facility] ([facility])[address] [place] [address] Lymphocytes (Bld) [#/Vol] 3.34 10*3/uL Normal 1.20-4.00 [facility] [facility] Comment on above: Performed By: #### L [id number] ####[facility] ([facility])[address] [place] [address] Lymphocytes/100 WBC (Bld) 31.7 % Normal 20.0-45.0 [facility] Comment on above: Performed By: #### L [id number] ####[facility] ([facility])[address] [place] [address] MCH (RBC) [Entitic mass] 28.3 pg Normal 27.0-33.0 [facility] Comment on above: Performed By: #### L [id number] ####[facility] ([facility])[address] [place] [address] MCV (RBC) [Entitic vol] 86.2 fL Normal 82.0-98.0 [facility] Comment on above: Performed By: #### L [id number] ####[facility] ([facility])[address] [place] [address] Monocytes (Bld) [#/Vol] 0.60 10*3/uL Normal 0.10-1.00 [facility] Comment on above: Performed By: #### L [id number] ####[facility] ([facility])[address] [place] [address] Monocytes/100 WBC (Bld) 5.7 % Normal 5.0-12.0 [facility] Comment on above: Performed By: #### L [id number] ####[facility] ([facility])[address] [address] Neutrophils (Bld) [#/Vol] 6.01 10*3/uL Normal 1.60-7.60 [facility] Comment on above: Performed By: #### L [id number] ####[facility] ([facility])[address] [address] Neutrophils/100 WBC (Bld) 57.2 % Normal 40.0-72.0 [facility] Comment on above: Performed By: #### L [id number] ####[facility] ([facility])[address] [address] NRBC (PER 100 WBCS) BY AUTOMATED COUNT 0.0 % Normal 0 [facility] Comment on above: Performed By: #### L [id number] ####[facility] ([facility])[address] [address] PLATELETS (10*3/UL) IN BLOOD AUTOMATED COUNT 329 10*3/uL Normal 150-400 [facility] Comment on above: Performed By: #### L [id number] ####[facility] ([facility])[address] [address] RBC (Bld) [#/Vol] 4.94 10*6/uL Normal 3.80-5.00 [facility] Comment on above: Performed By: #### L [id number] ####[facility] ([facility])[address] [address] WBC (Bld) [#/Vol] 10.52 10*3/uL Normal 4.00-10.60 [facility] Comment on above: Performed By: #### L [id number] ####[facility] ([facility])[address] [place] [address] on 07-10-2023 History Of Present Illness Vivian [...] Problems: Junctional bradycardia Pacemaker Loree Chance MD [facility] 30on 07-09-2023 30 Problem: Cardiovascular - [...] the shift include pacemaker placement without issues [facility] 30 Daily Case Managemen t Update [...] Consultation Consultation and Management 02/23/24 1050 Normal [facility] BASIC METABOLIC PANELon 02-2 Anion gap [Moles/Vol] 9 mmol/L Normal 7-20 [facility] Comment on above: Performed By: #### L [id number] #### [facility] ([facility]) [address] [place] [address] Calcium [Mass/Vol] 9.1 mg/dL Normal 8.6-10.3 [facility] Comment on above: Performed By: #### L [id number] #### [facility] ([facility]) [address] [place] [address] Chloride [Moles/Vol] 99 mmol/L Normal 98-107 [facility] Comment on above: Performed By: #### L [id number] #### [facility] ([facility]) [address] [place] [address] CO2 [Moles/Vol] 32 mmol/L High 21-31 [facility] Comment on above: Performed By: #### L [id number] #### [facility] ([facility]) [address] [place] [address] Creatinine [Mass/Vol] 0.98 mg/dL Normal 0.60-1.20 [facility] Comment on above: Performed By: #### L [id number] #### [facility] ([facility]) [address] [place] [address] GLOMERULAR FILTRATION RATE ML/MIN/1.73 SQ M.PREDICTED 65.3 mL/min/1.73m*2 Normal >60.0 [facility] Comment on above: Result Comment: [facility]???s estimated glomerular filtration rate (eGFR) [...] individuals. Performed By: #### L [id number] #### [facility] ([facility]) [address] [place] [address] Glucose [Mass/Vol] 131 mg/dL High 70-100 [facility] Comment on above: Performed By: #### L [id number] #### [facility] ([facility]) [address] [place] [address] Potassium [Moles/Vol] 4.3 mmol/L Normal 3.5-5.1 [facility] Comment on above: Performed By: #### L [id number] #### [facility] ([facility]) [address] [place] [address] Sodium [Moles/Vol] 136 mmol/L Normal 136-145 [facility] Comment on above: Performed By: #### L [id number] #### [facility] ([facility]) [address] [place] [address] Urea nitrogen [Mass/Vol] 23 mg/dL Normal 7-25 [facility] Comment on above: Performed By: #### L [id number] #### [facility] ([facility]) [address] [place] [address] UREA NITROGEN/CREATININE (MASS RATIO) IN SER/PLAS 23.5 Normal [facility] Comment on above: Performed By: #### L [id number] #### [facility] ([facility]) [address] [place] [address] CBC WITH AUTO DIFFERENTIALon 07-09-2023 Basophils (Bld) [#/Vol] 0.03 10*3/uL Normal 0.00-0.20 [facility] Comment on above: Performed By: #### L [id number] #### [facility] ([facility]) [address] [place] [address] Basophils/100 WBC (Bld) 0.3 % Normal 0.0-1.0 [facility] Comment on above: Performed By: #### L [id number] #### [facility] ([facility]) [address] [place] [address] Eosinophils (Bld) [#/Vol] 0.54 10*3/uL High 0.00-0.50 [facility] Comment on above: Performed By: #### L [id number] #### [facility] ([facility]) [address] [place] [address] Eosinophils/100 WBC (Bld) 4.9 % Normal 0.0-6.0 [facility] Comment on above: Performed By: #### L [id number] #### [facility] ([facility]) [address] [place] [place] [address] Erythrocyte distribution width (RBC) [Ratio] 15.0 % Normal 11.5-15.0 [facility] Comment on above: Performed By: #### L [id number] #### [facility] ([facility]) [address] [place] [address] ERYTHROCYTE MEAN CORPUSCULAR HEMOGLOBIN CONCENTRATION (G/DL) BY AUTOMATED 32.8 g/dL Normal 32.0-35.0 [facility] Comment on above: Performed By: #### L [id number] #### [facility] ([facility]) [address] [place] [address] Hematocrit (Bld) [Volume fraction] 37.5 % Normal 36.0-48.0 [facility] Comment on above: Performed By: #### L [id number] #### [facility] ([facility]) [address] [place] [address] Hemoglobin (Bld) [Mass/Vol] 12.3 g/dL Normal 12.0-15.0 [facility] Comment on above: Performed By: #### L [id number] #### [facility] ([facility]) [address] [place] [address] Immature granulocytes (Bld) [#/Vol] 0.03 10*3/uL Normal 0.00-0.20 [facility] Comment on above: Performed By: #### L [id number] #### [facility] ([facility]) [address] [place] [address] Immature granulocytes/100 WBC (Bld) 0.3 % Normal 0.0-1.0 [facility] Comment on above: Performed By: #### L [id number] #### [facility] ([facility]) [address] [place] [address] Lymphocytes (Bld) [#/Vol] 3.76 10*3/uL Normal 1.20-4.00 [facility] Comment on above: Performed By: #### L [id number] #### [facility] ([facility]) [address] [place] [address] Lymphocytes/100 WBC (Bld) 34.1 % Normal 20.0-45.0 [facility] Comment on above: Performed By: #### L [id number] #### [facility] ([facility]) [address] [place] [address] MCH (RBC) [Entitic mass] 28.5 pg Normal 27.0-33.0 [facility] Comment on above: Performed By: #### L [id number] #### [facility] ([facility]) [address] [place] [address] MCV (RBC) [Entitic vol] 87.0 fL Normal 82.0-98.0 [facility] Comment on above: Performed By: #### L [id number] #### [facility] ([facility]) [address] [place] [address] Monocytes (Bld) [#/Vol] 0.64 10*3/uL Normal 0.10-1.00 [facility] Comment on above: Performed By: #### L [id number] #### [facility] ([facility]) [address] [place] [address] Monocytes/100 WBC (Bld) 5.8 % Normal 5.0-12.0 [facility] Comment on above: Performed By: #### L [id number] #### [facility] ([facility]) [address] [place] [address] Neutrophils (Bld) [#/Vol] 6.03 10*3/uL Normal 1.60-7.60 [facility] Comment on above: Performed By: #### L [id number] #### [facility] ([facility]) [address] [place] [address] Neutrophils/100 WBC (Bld) 54.6 % Normal 40.0-72.0 [facility] Comment on above: Performed By: #### L [id number] #### [facility] ([facility]) [address] [place] [address] NRBC (PER 100 WBCS) BY AUTOMATED COUNT 0.0 % Normal 0 [facility] Comment on above: Performed By: #### L [id number] #### [facility] ([facility]) [address] [place] [address] PLATELETS (10*3/UL) IN BLOOD AUTOMATED COUNT 285 10*3/uL Normal 150-400 [facility] Comment on above: Performed By: #### L [id number] #### [facility] ([facility]) [address] [place] [address] RBC (Bld) [#/Vol] 4.31 10*6/uL Normal 3.80-5.00 [facility] Comment on above: Performed By: #### L [id number] #### [facility] ([facility]) [address] [place] [address] WBC (Bld) [#/Vol] 11.03 10*3/uL High 4.00-10.60 [facility] Comment on above: Performed By: #### L [id number] #### [facility] ([facility]) [address] [place] [address] 30on 07-08-2023 30 The patient is Moderately [...] Maintains adequate nutritional intake Outcome: Progressing Normal [facility] 30 Problem: Cardiovascular - Adult [...] for the shift include stable bp Normal [facility] BASIC METABOLIC PANELon 06-15 Anion gap [Moles/Vol] 10 mmol/L Normal 7-20 [facility] Comment on above: Performed By: #### L [id number] ####[facility] ([facility])[address] [place] [address] Calcium [Mass/Vol] 9.0 mg/dL Normal 8.6-10.3 [facility] Comment on above: Performed By: #### L [id number] ####[facility] ([facility])[address] [place] [address] Chloride [Moles/Vol] 97 mmol/L Low 98-107 [facility] Comment on above: Performed By: #### L [id number] ####[facility] ([facility])[address] [place] [address] CO2 [Moles/Vol] 33 mmol/L High 21-31 [facility] Comment on above: Performed By: #### L [id number] ####[facility] ([facility])[address] [place] [address] Creatinine [Mass/Vol] 1.30 mg/dL High 0.60-1.20 [facility] Comment on above: Performed By: #### L [id number] ####[facility] ([facility])[address] [place] [address] GLOMERULAR FILTRATION RATE ML/MIN/1.73 SQ M.PREDICTED 46.5 mL/min/1.73m*2 Low >60.0 [facility] Comment on above: Result Comment: [facility]???s estimated glomerular filtration rate (eGFR) [...] of individuals. Performed By: #### L [id number] ####[facility] ([facility])[address] [place] [address] Glucose [Mass/Vol] 214 mg/dL High 70-100 [facility] Comment on above: Performed By: #### L [id number] ####[facility] ([facility])[address] [place] [address] Potassium [Moles/Vol] 3.9 mmol/L Normal 3.5-5.1 [facility] Comment on above: Performed By: #### L [id number] ####[facility] ([facility])[address] [place] [address] Sodium [Moles/Vol] 136 mmol/L Normal 136-145 [facility] Comment on above: Performed By: #### L [id number] ####[facility] ([facility])[address] [place] [address] Urea nitrogen [Mass/Vol] 26 mg/dL High 7-25 [facility] Comment on above: Performed By: #### L [id number] ####[facility] ([facility])[address] [place] [address] UREA NITROGEN/CREATININE (MASS RATIO) IN SER/PLAS 20.0 Normal [facility] Comment on above: Performed By: #### L [id number] ####[facility] ([facility])[address] [place] [address] CBC WITH AUTO DIFFERENTIALon 07-08-2023 Basophils (Bld) [#/Vol] 0.04 10*3/uL Normal 0.00-0.20 [facility] Comment on above: Performed By: #### L [id number] #### [facility] ([facility]) [address] [place] [address] Basophils/100 WBC (Bld) 0.3 % Normal 0.0-1.0 [facility] Comment on above: Performed By: #### L [id number] #### [facility] ([facility]) [address] [place] [address] Eosinophils (Bld) [#/Vol] 0.51 10*3/uL High 0.00-0.50 [facility] Comment on above: Performed By: #### L [id number] #### [facility] ([facility]) [address] [place] [address] Eosinophils/100 WBC (Bld) 4.1 % Normal 0.0-6.0 [facility] Comment on above: Performed By: #### L [id number] #### [facility] ([facility]) [address] [place] [address] Erythrocyte distribution width (RBC) [Ratio] 15.0 % Normal 11.5-15.0 [facility] Comment on above: Performed By: #### L [id number] #### [facility] ([facility]) [address] [address] ERYTHROCYTE MEAN CORPUSCULAR HEMOGLOBIN CONCENTRATION (G/DL) BY AUTOMATED 31.9 g/dL Low 32.0-35.0 [facility] Comment on above: Performed By: #### L [id number] #### [facility] ([facility]) [address] [place] [address] Hematocrit (Bld) [Volume fraction] 37.9 % Normal 36.0-48.0 [facility] Comment on above: Performed By: #### L [id number] #### [facility] ([facility]) [address] [place] [address] Hemoglobin (Bld) [Mass/Vol] 12.1 g/dL Normal 12.0-15.0 [facility] Comment on above: Performed By: #### L [id number] #### [facility] ([facility]) [address] [place] [address] Immature granulocytes (Bld) [#/Vol] 0.04 10*3/uL Normal 0.00-0.20 [facility] Comment on above: Performed By: #### L [id number] #### [facility] ([facility]) [address] [place] [address] Immature granulocytes/100 WBC (Bld) 0.3 % Normal 0.0-1.0 [facility] Comment on above: Performed By: #### L [id number] #### [facility] ([facility]) [address] [place] [address] Lymphocytes (Bld) [#/Vol] 4.00 10*3/uL Normal 1.20-4.00 [facility] Comment on above: Performed By: #### L [id number] #### [facility] ([facility]) [address] [place] [address] Lymphocytes/100 WBC (Bld) 32.1 % Normal 20.0-45.0 [facility] Comment on above: Performed By: #### L [id number] #### [facility] ([facility] [address] [place] [address] MCH (RBC) [Entitic mass] 28.1 pg Normal 27.0-33.0 [facility] Comment on above: Performed By: #### L [id number] #### [facility] ([facility]) [address] [place] [address] MCV (RBC) [Entitic vol] 87.9 fL Normal 82.0-98.0 [facility] Comment on above: Performed By: #### L [id number] #### [facility] ([facility]) [address] [place] [address] Monocytes (Bld) [#/Vol] 0.85 10*3/uL Normal 0.10-1.00 [facility] Comment on above: Performed By: #### L [id number] #### [facility] ([facility]) [address] [place] [address] Monocytes/100 WBC (Bld) 6.8 % Normal 5.0-12.0 [facility] Comment on above: Performed By: #### L [id number] #### [facility] ([facility]) [address] [place] [address] Neutrophils (Bld) [#/Vol] 7.02 10*3/uL Normal 1.60-7.60 [facility] Comment on above: Performed By: #### L [id number] #### [facility] [address] [place] [address] Neutrophils/100 WBC (Bld) 56.4 % Normal 40.0-72.0 [facility] Comment on above: Performed By: #### L [id number] #### [facility] ([facility]) [address] [place] [address] NRBC (PER 100 WBCS) BY AUTOMATED COUNT 0.0 % Normal 0 [facility] Comment on above: Performed By: #### L [id number] #### [facility] ([facility]) [address] [place] [address] PLATELETS (10*3/UL) IN BLOOD AUTOMATED COUNT 301 10*3/uL Normal 150-400 [facility] Comment on above: Performed By: #### L [id number] #### [facility] ([facility]) [address] [place] [address] RBC (Bld) [#/Vol] 4.31 10*6/uL Normal 3.80-5.00 [facility] Comment on above: Performed By: #### L [id number] #### [facility] ([facility]) [address] [place] [address] WBC (Bld) [#/Vol] 12.46 10*3/uL High 4.00-10.60 [facility] Comment on above: Performed By: #### L [id number] #### [facility] ([facility]) [address] [place] [address] 30on 07-07-2023 30 The patient is Moderately Stable - Low risk of patient condition declining or worsening The patient's goals for the shift include comfort The clinical goals for the shift include vss Normal [facility] 30 Problem: Cardiovascular - Adult [...] comfort lev (more content not included)... Normal [facility] BASIC METABOLIC PANELon 02-2 4-2024 Anion gap [Moles/Vol] 12 mmol/L Normal 7-20 [facility] Comment on above: Performed By: #### L [id number] #### [facility] ([facility]) [address] [place] [address] Calcium [Mass/Vol] 9.2 mg/dL Normal 8.6-10.3 [facility] Comment on above: Performed By: #### L [id number] #### [facility] ([facility]) [address] [facility] [place] [address] Chloride [Moles/Vol] 97 mmol/L Low 98-107 [facility] Comment on above: Performed By: #### L [id number] #### [facility] ([facility]) [address] [facility] [place] [address] CO2 [Moles/Vol] 31 mmol/L Normal 21-31 [facility] Comment on above: Performed By: #### L [id number] #### [facility] ([facility]) [address] [place] [address] Creatinine [Mass/Vol] 1.06 mg/dL Normal 0.60-1.20 [facility] Comment on above: Performed By: #### L [id number] #### [facility] ([facility]) [address] [place] [address] GLOMERULAR FILTRATION RATE ML/MIN/1.73 SQ M.PREDICTED 59.4 mL/min/1.73m*2 Low >60.0 [facility] Comment on above: Result Comment: [facility]???s estimated glomerular filtration rate (eGFR) [...] individuals. Performed By: #### L [id number] #### [facility] ([facility]) [address] [place] [address] Glucose [Mass/Vol] 119 mg/dL High 70-100 [facility] Comment on above: Performed By: #### L [id number] #### [facility] ([facility]) [address] [place] [address] Potassium [Moles/Vol] 4.6 mmol/L Normal 3.5-5.1 [facility] Comment on above: Performed By: #### L [id number] #### [facility] ([facility]) [address] [place] [address] Sodium [Moles/Vol] 135 mmol/L Low 136-145 [facility] Comment on above: Performed By: #### L [id number] #### [facility] ([facility]) [address] [place] [address] Urea nitrogen [Mass/Vol] 21 mg/dL Normal 7-25 [facility] Comment on above: Performed By: #### L [id number] #### [facility] ([place] [facility] [address] [place] [address] UREA NITROGEN/CREATININE (MASS RATIO) IN SER/PLAS 19.8 Normal [facility] Comment on above: Performed By: #### L [id number] #### [facility] ([place] [facility]) [address] [place] [address] CBC WITH AUTO DIFFERENTIALon 07-07-2023 Basophils (Bld) [#/Vol] 0.05 10*3/uL Normal 0.00-0.20 [facility] Comment on above: Performed By: #### L [id number] #### [facility] ([place] [facility]) [address] [place] [address] Basophils/100 WBC (Bld) 0.3 % Normal 0.0-1.0 [facility] Comment on above: Performed By: #### L [id number] #### [facility] ([facility] [place] [facility]) [address] [place] [address] Eosinophils (Bld) [#/Vol] 0.38 10*3/uL Normal 0.00-0.50 [facility] Comment on above: Performed By: #### L [id number] #### [facility] (BEAKER) [address] [place] [address] Eosinophils/100 WBC (Bld) 2.5 % Normal 0.0-6.0 [facility] Comment on above: Performed By: #### L [id number] #### [facility] ([facility] [address] [place] [place] [address] Erythrocyte distribution width (RBC) [Ratio] 15.5 % High 11.5-15.0 [facility] Comment on above: Performed By: #### L [id number] #### [facility] ([facility]) [address] [place] [place] [address] ERYTHROCYTE MEAN CORPUSCULAR HEMOGLOBIN CONCENTRATION (G/DL) BY AUTOMATED 32.0 g/dL Normal 32.0-35.0 [facility] Comment on above: Performed By: #### L [id number] #### [facility] ([facility]) [address] [place] [address] Hematocrit (Bld) [Volume fraction] 38.8 % Normal 36.0-48.0 [facility] Comment on above: Performed By: #### L [id number] #### [facility] (BEAKER) [address] [place] [address] Hemoglobin (Bld) [Mass/Vol] 12.4 g/dL Normal 12.0-15.0 [facility] Comment on above: Performed By: #### L [id number] #### [facility] (BEAKER) [address] [place] [address] Immature granulocytes (Bld) [#/Vol] 0.05 10*3/uL Normal 0.00-0.20 [facility] Comment on above: Performed By: #### L [id number] #### [facility] (BEAKER) [address] [place] [address] Immature granulocytes/100 WBC (Bld) 0.3 % Normal 0.0-1.0 [facility] Comment on above: Performed By: #### L [id number] #### [facility] ([facility]) [address] [place] [address] Lymphocytes (Bld) [#/Vol] 3.99 10*3/uL Normal 1.20-4.00 [facility] Comment on above: Performed By: #### L [id number] #### [facility] ([facility]) [address] [place] [address] Lymphocytes/100 WBC (Bld) 26.5 % Normal 20.0-45.0 [facility] Comment on above: Performed By: #### L [id number] #### [facility] ([facility]) [address] [place] [address] MCH (RBC) [Entitic mass] 27.9 pg Normal 27.0-33.0 [facility] Comment on above: Performed By: #### L [id number] #### [facility] ([facility]) [address] [place] [address] MCV (RBC) [Entitic vol] 87.4 fL Normal 82.0-98.0 [facility] Comment on above: Performed By: #### L [id number] #### [facility] ([facility]) [address] [place] [address] Monocytes (Bld) [#/Vol] 1.25 10*3/uL High 0.10-1.00 [facility] Comment on above: Performed By: #### L [id number] #### [facility] ([facility]) [address] [place] [address] Monocytes/100 WBC (Bld) 8.3 % Normal 5.0-12.0 [facility] Comment on above: Performed By: #### L [id number] #### [facility] (BEAKER) [address] [place] [address] Neutrophils (Bld) [#/Vol] 9.31 10*3/uL High 1.60-7.60 [facility] Comment on above: Performed By: #### L [id number] #### [facility] ([facility]) [address] [place] [address] Neutrophils/100 WBC (Bld) 62.1 % Normal 40.0-72.0 [facility] Comment on above: Performed By: #### L [id number] #### [facility] ([facility]) [address] [address] NRBC (PER 100 WBCS) BY AUTOMATED COUNT 0.0 % Normal 0 [facility] Comment on above: Performed By: #### L [id number] #### [facility] ([facility]) [address] [place] [address] PLATELETS (10*3/UL) IN BLOOD AUTOMATED COUNT 300 10*3/uL Normal 150-400 [facility] Comment on above: Performed By: #### L [id number] #### [facility] ([facility]) [address] [place] [address] RBC (Bld) [#/Vol] 4.44 10*6/uL Normal 3.80-5.00 [facility] Comment on above: Performed By: #### L [id number] #### [facility] ([facility]) [address] [address] WBC (Bld) [#/Vol] 15.03 10*3/uL High 4.00-10.60 [facility] Comment on above: Performed By: #### L [id number] #### [facility] ([facility]) [address] [place] [address] MAGNESIUMon 07-07-2023 Magnesium [Mass/Vol] 2.3 mg/dL Normal 1.9-2.7 [facility] Comment on above: Performed By: #### L [id number] ####[facility] ([facility])[address] [place] [address] 30on 07-06-2023 30 Daily Case Managemen t [...] Consultation Consultation and Management 07/06/23 1050 Normal [facility] 30 The patient is Moderately [...] and maintained or improved Outcome: Progressing Normal [facility] 30 The patient is Moderately Stable - Low risk of patient condition declining or worsening The patient's goals for the shift include comfort The clinical goals for the shift include VSS Normal [facility] 30 The patient is Moderately Stable - Low risk of patient condition declining or worsening The patient's goals for the shift include comfort The clinical goals for the shift include VSS Normal [facility] APTTon 07-06-2023 ACTIVATED PARTIAL THROMBOPLASTIN TIME IN PPP BY COAGULATION ASSAY 25.3 Seconds Normal 25.0-35.0 [facility] Comment on above: Result Comment: Clin ical significance of the APTT is questionable in the presence of heparin. Performed By: #### L [id number] #### [facility] ([facility]) [address] [place] [address] B-TYPE NATRIURETIC PEPTIDEon 07-06-2023 Natriuretic peptide B (Bld) [Mass/Vol] 721 pg/mL High 0-100 [facility] Comment on above: Performed By: #### L [id number] #### [facility] ([facility]) [address] [facility] [place] [address] BLOOD CULTUREon 07-06-2023 Bacteria identified Cx Nom (Bld) No growth at 5 days Normal [facility] Comment on above: Performed By: #### L [id number] ####[facility] ([facility])[address] [place] [address] Order Comment: From a different site than #1. Performed By: #### L [id number] #### [facility] ([facility]) [address] [place] [address] CBC WITH AUTO DIFFERENTIALon 07-06-2023 Basophils (Bld) [#/Vol] 0.03 10*3/uL Normal 0.00-0.20 [facility] Comment on above: Performed By: #### L [id number] #### [facility] ([facility]) [address] [place] [address] Basophils/100 WBC (Bld) 0.2 % Normal 0.0-1.0 [facility] Comment on above: Performed By: #### L [id number] #### [facility] ([facility]) [address] [facility] [place] [address] Eosinophils (Bld) [#/Vol] 0.11 10*3/uL Normal 0.00-0.50 [facility] Comment on above: Performed By: #### L [id number] #### [facility] ([facility]) [address] [place] [address] Eosinophils/100 WBC (Bld) 0.8 % Normal 0.0-6.0 [facility] Comment on above: Performed By: #### L [id number] #### [facility] ([facility]) [address] [place] [address] Erythrocyte distribution width (RBC) [Ratio] 15.1 % High 11.5-15.0 [facility] Comment on above: Performed By: #### L [id number] #### [facility] ([facility]) [address] [place] [address] ERYTHROCYTE MEAN CORPUSCULAR HEMOGLOBIN CONCENTRATION (G/DL) BY AUTOMATED 32.3 g/dL Normal 32.0-35.0 [facility] Comment on above: Performed By: #### L [id number] #### [facility] ([facility]) [address] [place] [address] Hematocrit (Bld) [Volume fraction] 39.0 % Normal 36.0-48.0 [facility] Comment on above: Performed By: #### L [id number] #### [facility] ([facility]) [address] [place] [address] Hemoglobin (Bld) [Mass/Vol] 12.6 g/dL Normal 12.0-15.0 [facility] Comment on above: Performed By: #### L [id number] #### [facility] ([facility]) [address] [place] [address] Immature granulocytes (Bld) [#/Vol] 0.04 10*3/uL Normal 0.00-0.20 [facility] Comment on above: Performed By: #### L [id number] #### [facility] ([facility]) [address] [place] [address] Immature granulocytes/100 WBC (Bld) 0.3 % Normal 0.0-1.0 [facility] Comment on above: Performed By: #### L [id number] #### [facility] ([facility]) [address] [place] [address] Lymphocytes (Bld) [#/Vol] 2.75 10*3/uL Normal 1.20-4.00 [facility] Comment on above: Performed By: #### L [id number] #### [facility] ([facility]ER) [address] [place] [address] Lymphocytes/100 WBC (Bld) 19.1 % Low 20.0-45.0 [facility] Comment on above: Performed By: #### L [id number] #### [facility] ([facility]AKER) [address] [place] [address] MCH (RBC) [Entitic mass] 27.9 pg Normal 27.0-33.0 [facility] Comment on above: Performed By: #### L [id number] #### [facility] (BEAKER) [address] [place] [address] MCV (RBC) [Entitic vol] 86.5 fL Normal 82.0-98.0 [facility] Comment on above: Performed By: #### L [id number] #### [facility] ([facility]ER) [address] [place] [address] Monocytes (Bld) [#/Vol] 1.31 10*3/uL High 0.10-1.00 [facility] Comment on above: Performed By: #### L [id number] #### [facility] (BEAKER) [address] [place] [address] Monocytes/100 WBC (Bld) 9.1 % Normal 5.0-12.0 [facility] Comment on above: Performed By: #### L [id number] #### [facility] ([facility]ER) [address] [place] [address] Neutrophils (Bld) [#/Vol] 10.18 10*3/uL High 1.60-7.60 [facility] Comment on above: Performed By: #### L [id number] #### [facility] (BEAKER) [address] [place] [address] Neutrophils/100 WBC (Bld) 70.5 % Normal 40.0-72.0 [facility] Comment on above: Performed By: #### L [id number] #### [facility] ([facility]AKER) [address] [place] [address] NRBC (PER 100 WBCS) BY AUTOMATED COUNT 0.0 % Normal 0 [facility] Comment on above: Performed By: #### L [id number] #### [facility] ([facility]) [address] [place] [address] PLATELETS (10*3/UL) IN BLOOD AUTOMATED COUNT 321 10*3/uL Normal 150-400 [facility] Comment on above: Performed By: #### L [id number] #### [facility] ([facility]) [address] [place] [address] RBC (Bld) [#/Vol] 4.51 10*6/uL Normal 3.80-5.00 [facility] Comment on above: Performed By: #### L [id number] #### [facility] ([facility]) [address] [place] [address] WBC (Bld) [#/Vol] 14.42 10*3/uL High 4.00-10.60 [facility] Comment on above: Performed By: #### L [id number] #### [facility] ([facility]) [address] [place] [address] CKon 07-06-2023 CREATINE KINASE (U/L) IN SER/PLAS 36.0 U/L Normal 30.0-223.0 [facility] Comment on above: Performed By: #### L [id number] #### [facility] ([facility]) [address] [place] [address] COMPREHENSIVE METABOLIC PANE Pollo 07-06-2023 Albumin [Mass/Vol] 4.6 g/dL Normal 3.5-5.7 [facility] Comment on above: Performed By: #### L [id number] #### [facility] ([facility]) [address] [place] [address] ALP [Catalytic activity/Vol] 47 U/L Normal 34-104 [facility] Comment on above: Performed By: #### L [id number] #### [facility] (BEAKER) [address] [place] [address] ALT [Catalytic activity/Vol] 13 U/L Normal 7-52 [facility] Comment on above: Performed By: #### L [id number] #### [facility] (BEAKER) [address] [place] [address] Anion gap [Moles/Vol] 14 mmol/L Normal 7-20 [facility] Comment on above: Performed By: #### L [id number] #### [facility] (BEAKER) [address] [place] [address] AST [Catalytic activity/Vol] 17 U/L Normal 13-39 [facility] Comment on above: Performed By: #### L [id number] #### [facility] ([facility]) [address] [place] [address] Bilirubin [Mass/Vol] 0.5 mg/dL Normal 0.3-1.0 [facility] Comment on above: Performed By: #### L [id number] #### [facility] ([facility]) [address] [place] [address] Calcium [Mass/Vol] 8.9 mg/dL Normal 8.6-10.3 [facility] Comment on above: Performed By: #### L [id number] #### [facility] (BEAKER) [address] [place] [address] Chloride [Moles/Vol] 98 mmol/L Normal 98-107 [facility] Comment on above: Performed By: #### L [id number] #### [facility] (BEAKER) [address] [place] [address] CO2 [Moles/Vol] 28 mmol/L Normal 21-31 [facility] Comment on above: Performed By: #### L [id number] #### [facility] (BEAKER) [address] [place] [address] Creatinine [Mass/Vol] 1.23 mg/dL High 0.60-1.20 [facility] Comment on above: Performed By: #### L [id number] #### [facility] ([facility]) [address] [place] [address] GLOMERULAR FILTRATION RATE ML/MIN/1.73 SQ M.PREDICTED 49.7 mL/min/1.73m*2 Low >60.0 [facility] Comment on above: Result Comment: [facility]???s estimated glomerular filtration rate (eGFR) [...] individuals. Performed By: #### L [id number] #### [facility] ([facility]) [address] [place] [address] Glucose [Mass/Vol] 119 mg/dL High 70-100 [facility] Comment on above: Performed By: #### L [id number] #### [facility] ([facility]) [address] [place] [address] Potassium [Moles/Vol] 4.6 mmol/L Normal 3.5-5.1 [facility] Comment on above: Performed By: #### L [id number] #### [facility] ([facility]) [address] [place] [address] Protein [Mass/Vol] 6.8 g/dL Normal 6.0-8.3 [facility] Comment on above: Performed By: #### L [id number] #### [facility] ([facility]) [address] [place] [address] Sodium [Moles/Vol] 135 mmol/L Low 136-145 [facility] Comment on above: Performed By: #### L [id number] #### [facility] (BEAKER) [address] [facility] [place] [address] Urea nitrogen [Mass/Vol] 23 mg/dL Normal 7-25 [facility] Comment on above: Performed By: #### L [id number] #### [facility] (BEAKER) [address] [facility] [address] UREA NITROGEN/CREATININE (MASS RATIO) IN SER/PLAS 18.7 Normal [facility] Comment on above: Performed By: #### L [id number] #### [facility] (BEAKER) [address] [facility] [place] [address] CONSULTon 07-06-2023 CONSULT - Attestation signed by [...] of bradycardia. Patient has been transferred to [facility] for consideration of pacemaker placement. As per [...] -- -- 7 (more content not included)... [facility] ED Clinical Summaryon 2023 ED Clinical Summary [address] [address] ED Clinical Summary Person Information Name: VIVIAN VANN/[place] Age: 63 Years : 1960 Sex: Female Language: Zimbabwean PCP: Екатерина Robert MD Marital Status: Phone: [...] 07/05/2023 22:16:25 07/05/2023 22:16:25 07/05/2023 22:16:25 ADDR[facility]: [facility] [id number] PHYS DOC NOTES: MEDICAL INFORMATION: Prescriptions Given: [...] 3:Tobacco abuse; 4:CHF (congestive heart failure) Normal [facility] ED Patient Education Noteon 07-06-2023 ED Patient Education Note Normal [facility] ED Patient Summaryon 024 ED Patient Summary [address] [address] Patient Discharge Instructions Person Information Name: VIVIAN VANN Age: 63 Years Arrival Date: 07/05/2023 15:01:40 Discharge Diagnosis: 1:Atrial fibrillation with slow ventricular response; 2:Elevated troponin; 3:Tobacco abuse; 4:CHF (congestive heart failure) Primary Care Physician: Екатерина Robert MD Provider Information Primary Provider: Arsenio aMrtin DO Advanced Pathology Teacher:None The exam and treatment you received in the Emergency Department were for an urgent problem and are not intended as complete care. It is important that you follow up with a doctor, nurse practitioner, or physician?s intellectual property legal assistant for ongoing care. If your [...] opioids can be used to help relieve dgzcmaxv-cd-nwkiqo pain and are often prescribed following a [...] struggling with addiction, tell your health care clinician and ask for guidance or call [employer]?S National Helpline at 4-358-797-HELP. v Source: [place] Department of Health and Human Services/Center for Disease Control & Preve (more content not included)... Normal [facility] ETHANOLon 07-06-2023 ETHANOL (MG/DL) IN SER/PLAS <10 Normal [facility] Comment on above: Performed By: #### L [id number] ####[facility] (BEAKER)[address] [place] [address] ETHANOL CALCULATED (%) Normal [facility] Comment on above: Performed By: #### L [id number] ####[facility] (BEAKER)[address] [place] [address] HEMOGLOBIN A1Con 07-06-2023 Glucose [Mass/Vol] 148 mg/dL Normal [facility] Comment on above: Performed By: #### L [id number] #### [facility] ([facility]) [address] [place] [address] HbA1c (Bld) [Mass fraction] 6.8 % High 4.0-6.0 [facility] Comment on above: Performed By: #### L [id number] #### [facility] ([facility] [address] [place] [address] LACTIC ACID WITH 4 HOUR REFL EXon 07-06-2023 LACTATE (MMOL/L) IN SER/PLAS 1.8 mmol/L Normal 0.5-2.2 [facility] Comment on above: Performed By: #### L [id number] ####[facility] (BEAKER)[address] [place] [address] LIPID PANELon 07-06-2023 CHOL/HDL 3.0 mg/dL Normal [facility] Comment on above: Performed By: #### L [id number] #### [facility] (BEAKER) [address] [place] [address] Cholesterol [Mass/Vol] 143 mg/dL Normal 120-200 [facility] Comment on above: Performed By: #### L [id number] #### [facility] (BEAKER) [address] [place] [address] Magnesium [Mass/Vol] 159 mg/dL High 40-149 [facility] Comment on above: Result Comment: TRIG LYCERIDE REFERENCE RANGE: 20 YEARS AND OLDER CARDIOVASCULAR RISK LESS THAN 150 mg/dL LOW RISK 150 TO 199 mg/dL BORDERLINE RISK 200 mg/dL AND GREATER HIGH RISK Performed By: #### L [id number] #### [facility] ([facility]) [address] [place] [address] Magnesium [Mass/Vol] 63 mg/dL Normal 0-160 [facility] Comment on above: Performed By: #### L [id number] #### [facility] ([facility]) [address] [place] [address] Magnesium [Mass/Vol] 48 mg/dL Normal 23-92 [facility] Comment on above: Performed By: #### L [id number] #### [facility] ([facility]) [address] [place] [address] NON HDL CHOL. (LDL+VLDL) 95 Normal [facility] Comment on above: Performed By: #### L [id number] #### [facility] ([facility]) [address] [place] [address] TOTAL VLDL-C 32 mg/dL Normal 0-40 [facility] Comment on above: Performed By: #### L [id number] #### [facility] ([facility] [address] [place] [address] MAGNESIUMon 07-06-2023 Magnesium [Mass/Vol] 2.2 mg/dL Normal 1.9-2.7 [facility] [facility] Comment on above: Performed By: #### L [id number] #### [facility] ([facility] [address] [place] [address] PHOSPHORUSon 07-06-2023 Magnesium [Mass/Vol] 5.2 mg/dL High 2.5-5.0 [facility] Comment on above: Performed By: #### L [id number] #### [facility] ([facility]) [address] [place] [address] PROTIME-INRon 07-06-2023 INR IN PPP BY COAGULATION ASSAY 1.00 Normal 0.90-1.10 [facility] Comment on above: Result Comment: [...] 1995;[id number]. Performed By: #### L [id number] #### [facility] [address] [place] [address] PROTHROMBIN TIME (PT) IN PPP BY COAGULATION ASSAY 13.2 Seconds Normal 12.3-14.8 [facility] Comment on above: Performed By: #### L [id number] #### [facility] [address] [place] [address] TOXICOLOGY PANEL URINEon AMPHETAMINE+METHAMPHET AMINE SCREEN (PRESENCE) IN URINE Negative Normal Negative [facility] Comment on above: Performed By: #### L [id number] #### [facility] [address] [place] [address] BARBITURATES PRESENCE IN URINE BY SCREEN METHOD Negative Normal Negative [facility] Comment on above: Performed By: #### L [id number] #### [facility] [address] [facility] [place] [address] Benzodiazepines Ql (U) Positive Abnormal Negative [facility] Comment on above: Performed By: #### L [id number] #### [facility] ([facility]) [address] [place] [address] CANNABINOID (PRESENCE) IN URINE BY SCREEN METHOD Positive Abnormal Negative [facility] Comment on above: Performed By: #### L [id number] #### [facility] ([facility]) [address] [place] [address] Cocaine Ql (U) Negative Normal Negative [facility] Comment on above: Performed By: #### L [id number] #### [facility] ([facility] [address] [facility] [place] [address] METHADONE (PRESENCE) IN URINE BY SCREEN METHOD Negative Normal Negative [facility] Comment on above: Performed By: #### L [id number] #### [facility] ([facility] [address] [facility] [place] [address] OPIATES (PRESENCE) IN URINE BY SCREEN METHOD Negative Normal Negative [facility] Comment on above: Performed By: #### L [id number] #### [facility] ([facility] [address] [facility] [place] [address] PHENCYCLIDINE PRESENCE IN URINE BY SCREEN METHOD Negative Normal Negative [facility] Comment on above: Performed By: #### L [id number] #### [facility] ([facility] [address] [facility] [place] [address] Propoxyphene Screen Ql (U) Negative Normal Negative [facility] Comment on above: Performed By: #### L [id number] #### [facility] ([facility]) [address] [place] [address] TRICYCLIC ANTIDEPRESSANTS (PRESENCE) IN URINE Positive Abnormal Negative [facility] Comment on above: Performed By: #### L [id number] #### [facility] ([facility] [address] [facility] [place] [address] TROPONIN Ion 07-06-2023 Troponin I.cardiac [Mass/Vol] 0.12 ng/mL Critically high 0.00-0.04 [facility] Comment on above: Result Comment: M-NM EVIOUS CRITICAL RESULT Previous result verified on 07/06/2023 1236 on specimen/case [id number] called with component Troponin I for procedure Troponin I with value 0.11 ng/mL. Performed By: #### L [id number] #### [facility] ([facility]) [address] [place] [address] Troponin I.cardiac [Mass/Vol] 0.11 ng/mL Critically high 0.00-0.04 [facility] Comment on above: Result Comment: M-NM EVIOUS CRITICAL RESULT Previous result verified on 07/06/2023 0444 on specimen/case [id number] called with component Troponin I for procedure Troponin I with value 0.12 ng/mL. Performed By: #### L [id number] #### [facility] ([facility]) [address] [place] [address] Troponin I.cardiac [Mass/Vol] 0.12 ng/mL Critically high 0.00-0.04 [facility] Comment on above: Result Comment: M-CR ITICAL RESULT(S) REVIEWED, CALLED TO AND READ BACK BY PRIYANKA LEOS RN AT 0442 M-TROPONIN INITIAL CRITICAL HIGH; RESPUN AND RETESTED Performed By: #### L [id number] #### [facility] ([facility]) [address] [place] [address] TSH3 REFLEX TO FT4on 024 THYROTROPIN (MIU/L) IN SER/PLAS BY DETECTION LIMIT <= 0.05 MIU/L 4.25 mIU/L Normal 0.34-5.60 [facility] Comment on above: Performed By: #### L [id number] #### [facility] ([facility]) [address] [place] [address] Transfer Documentson 024 Transfer Documents [id number]# 1.00TIFF Normal [facility] URINALYSIS WITH REFLEX CULTU REon 07-06-2023 BILIRUBIN, TOTAL PRESENCE IN URINE Negative Normal Negative [facility] Comment on above: Order Comment: Micro scopics not performed on urines with negative chemical reactions unless requested on original order. Performed By: #### L [id number] #### [facility] ([facility]) [address] [place] [address] Clarity (U) Clear Normal Clear [facility] Comment on above: Order Comment: Micro scopics not performed on urines with negative chemical reactions unless requested on original order. Performed By: #### L [id number] #### [facility] ([facility]) [address] [place] [address] Color (U) Yellow Normal Yellow [facility] Comment on above: Order Comment: Micro scopics not performed on urines with negative chemical reactions unless requested on original order. Performed By: #### L [id number] #### [facility] ([facility]) [address] [place] [address] Glucose (U) [Mass/Vol] mg/dL Abnormal Negative [facility] Comment on above: Order Comment: Micro scopics not performed on urines with negative chemical reactions unless requested on original order. Performed By: #### L [id number] #### [facility] ([facility]) [address] [place] [address] HEMOGLOBIN PRESENCE IN URINE Negative Normal Negative [facility] Comment on above: Order Comment: Micro scopics not performed on urines with negative chemical reactions unless requested on original order. Performed By: #### L [id number] #### [facility] ([facility]) [address] [place] [address] Ketones Ql (U) Negative Normal Negative [facility] Comment on above: Order Comment: Micro scopics not performed on urines with negative chemical reactions unless requested on original order. Performed By: #### L [id number] #### [facility] ([facility]) [address] [place] [address] LEUKOCYTE ESTERASE PRESENCE IN URINE BY TEST STRIP Negative Normal Negative [facility] Comment on above: Order Comment: Micro scopics not performed on urines with negative chemical reactions unless requested on original order. Performed By: #### L [id number] #### [facility] ([facility]) [address] [place] [address] NITRITE PRESENCE IN URINE Negative Normal Negative [facility] Comment on above: Order Comment: Micro scopics not performed on urines with negative chemical reactions unless requested on original order. Performed By: #### L [id number] #### [facility] ([facility]) [address] [place] [address] pH (U) 6.0 [pH] Normal 5.0-8.0 [facility] Comment on above: Order Comment: Micro scopics not performed on urines with negative chemical reactions unless requested on original order. Performed By: #### L [id number] #### [facility] ([facility]) [address] [place] [address] Protein (U) [Mass/Vol] Negative Normal Negative [facility] Comment on above: Order Comment: Micro scopics not performed on urines with negative chemical reactions unless requested on original order. Performed By: #### L [id number] #### [facility] ([facility]) [address] [place] [address] Specific gravity (U) [Rel density] 1.013 Low 1.015-1.020 [facility] Comment on above: Order Comment: Micro scopics not performed on urines with negative chemical reactions unless requested on original order. Performed By: #### L [id number] #### [facility] ([facility]) [address] [place] [address] BILIRUBIN, TOTAL PRESENCE IN URINE Negative Normal Negative [facility] Comment on above: Order Comment: Micro scopics not performed on urines with negative chemical reactions unless requested on original order. Performed By: #### L [id number] #### [facility] ([facility]) [address] [place] [address] Clarity (U) Clear Normal Clear [facility] Comment on above: Order Comment: Micro scopics not performed on urines with negative chemical reactions unless requested on original order. Performed By: #### L [id number] #### [facility] ([facility]) [address] [place] [address] Color (U) Yellow Normal Yellow [facility] Comment on above: Order Comment: Micro scopics not performed on urines with negative chemical reactions unless requested on original order. Performed By: #### L [id number] #### [facility] ([facility]) [address] [place] [address] Glucose (U) [Mass/Vol] mg/dL Abnormal Negative [facility] Comment on above: Order Comment: Micro scopics not performed on urines with negative chemical reactions unless requested on original order. Performed By: #### L [id number] #### [facility] ([facility]) [address] [place] [address] HEMOGLOBIN PRESENCE IN URINE Negative Normal Negative [facility] Comment on above: Order Comment: Micro scopics not performed on urines with negative chemical reactions unless requested on original order. Performed By: #### L [id number] #### [facility] ([facility]) [address] [place] [address] Ketones Ql (U) Negative Normal Negative [facility] Comment on above: Order Comment: Micro scopics not performed on urines with negative chemical reactions unless requested on original order. Performed By: #### L [id number] #### [facility] ([facility]) [address] [place] [address] LEUKOCYTE ESTERASE PRESENCE IN URINE BY TEST STRIP Negative Normal Negative [facility] Comment on above: Order Comment: Micro scopics not performed on urines with negative chemical reactions unless requested on original order. Performed By: #### L [id number] #### [facility] ([facility]) [address] [place] [address] NITRITE PRESENCE IN URINE Negative Normal Negative [facility] Comment on above: Order Comment: Micro scopics not performed on urines with negative chemical reactions unless requested on original order. Performed By: #### L [id number] #### [facility] ([facility]) [address] [place] [address] pH (U) 6.0 [pH] Normal 5.0-8.0 [facility] Comment on above: Order Comment: Micro scopics not performed on urines with negative chemical reactions unless requested on original order. Performed By: #### L [id number] #### [facility] ([facility]) [address] [place] [address] Protein (U) [Mass/Vol] Negative Normal Negative [facility] Comment on above: Order Comment: Micro scopics not performed on urines with negative chemical reactions unless requested on original order. Performed By: #### L [id number] #### [facility] ([facility]) [address] [place] [address] Specific gravity (U) [Rel density] 1.017 Normal 1.015-1.020 [facility] Comment on above: Order Comment: Micro scopics not performed on urines with negative chemical reactions unless requested on original order. Performed By: #### L [id number] #### [facility] ([facility]) [address] [place] [address] BMP 07-05-2023 Anion gap [Moles/Vol] 15 mmol/L Normal 6-16 [facility] Comment on above: Performed By: #### 1 9061266, 9461298, 82207156, 64197321, 2105266, 10329602, 8743692, 0383226, 5304661, 0134104 ####[facility] [address] [place] [address] BUN/Creat Ratio 15 No Units Normal 10-20 [facility] Comment on above: Performed By: #### 1 7458393, 1097458, 36684956, 48624991, 5482446, 04748780, 7650172, 4258486, 3467952, 6946529 ####[facility] [address] [place] [address] Calcium [Mass/Vol] 10.1 mg/dL Normal 8.9-11.1 [facility] Comment on above: Performed By: #### 1 3029977, 0639645, 93306191, 73248491, 7576286, 04986627, 0866917, 6827044, 1030871, 4234040 ####[facility] [address] [place] [address] Chloride [Moles/Vol] 96 mmol/L Low 101-111 [facility] Comment on above: Performed By: #### 1 5810516, 8796055, 89468805, 03796887, 8640149, 33975022, 7989545, 4051322, 9557855, 8058255 ####[facility] [address] [place] [address] CO2 [Moles/Vol] 32 mmol/L High 21-31 [place] Comment on above: Performed By: #### 1 7253104, 7942107, 12873106, 59620029, 6479657, 10114925, 3690017, 6161842, 1740380, 7461063 ####[facility] [address] [place] [address] Creatinine [Mass/Vol] 1.5 mg/dL High 0.5-1.3 [facility] Comment on above: Performed By: #### 1 2169113, 7695015, 83603551, 43958781, 3331101, 97433287, 3073573, 8799134, 2468025, 6877005 ####[facility] [address] [place] [address] Glucose [Mass/Vol] 147 mg/dL Normal 55-199 [facility] Comment on above: Performed By: #### 1 7258762, 9796390, 15222758, 10495645, 3234633, 94440608, 3048076, 6034328, 4023020, 8418003 ####[facility] [address] [place] [address] Potassium [Moles/Vol] 5.1 mmol/L Normal 3.5-5.3 [facility] Comment on above: Performed By: #### 1 6677733, 8698514, 54599774, 89775953, 6475600, 40906450, 6875697, 1898923, 2468596, 8760453 ####[facility] [address] [place] [address] Sodium [Moles/Vol] 138 mmol/L Normal 135-145 [facility] Comment on above: Performed By: #### 1 9354599, 2034978, 66648048, 62587300, 1332915, 35086342, 8369445, 9212612, 9381392, 2584700 ####[facility] [address] [place] [address] Urea nitrogen [Mass/Vol] 22 mg/dL High 5-21 [facility] Comment on above: Performed By: #### 1 1895137, 8655195, 35084186, 83665035, 0006693, 47960575, 1103653, 3992300, 3971940, 7764917 ####[address] [address] BNPon 07-05-2023 Natriuretic peptide B (Bld) [Mass/Vol] 508 pg/mL High 5-80 [facility] Comment on above: Performed By: #### 1 2188837, 5131445, 37327696, 32462225, 8309676, 49769141, 8252920, 5373032, 2241258, 1502415 ####[address] [address] CBC w/ Auto Diffon Basophil Absolute 0.1 E9/L Normal 0.0-0.2 [facility] Comment on above: Performed By: #### 1 7528617, 4194189, 05448438, 39341213, 5610878, 14080463, 8537469, 8904698, 8428799, 3931406 ####[place] [address] [place] [address] Basophils/100 WBC (Bld) 0.7 % Normal 0.0-2.0 [facility] Comment on above: Performed By: #### 1 8019036, 2172196, 69750744, 79563467, 0394984, 75393202, 5876230, 8830041, 8908872, 9878060 ####[place] [place] [place] 7248457 Eos Absolute 0.4 E9/L Normal 0.0-0.5 [facility] Comment on above: Performed By: #### 1 1039582, 5858858, 18571998, 66916901, 8457835, 71299959, 8684064, 2449641, 8842879, 6568009 ####[place] [address] Eosinophils/100 WBC (Bld) 3.7 % Normal 0.0-8.0 [facility] Comment on above: Performed By: #### 1 0579137, 3267837, 74836239, 46478358, 7770895, 52472541, 5982773, 7149974, 7841138, 5527209 ####[place] [address] Erythrocyte distribution width (RBC) [Ratio] 16.8 % High 10.9-14.2 [facility] Comment on above: Performed By: #### 1 2087074, 0008612, 34557635, 97370839, 4347129, 92365331, 4878214, 2028461, 3345862, 8140196 ####[place] [address] Hematocrit (Bld) [Volume fraction] 46.0 % Normal 34.0-46.0 [facility] Comment on above: Performed By: #### 1 3712603, 0910764, 62174514, 99623626, 6481153, 02005973, 8931846, 8428273, 4341117, 4307378 ####[place] [address] Hemoglobin (Bld) [Mass/Vol] 15.1 g/dL Normal 12.0-16.0 [facility] Comment on above: Performed By: #### 1 6139168, 7735873, 11763701, 39595005, 5818872, 43011075, 8626173, 3263265, 6863189, 9526236 ####[address] [place] [address] Lymph Absolute 3.6 E9/L Normal 1.0-4.0 [facility] Comment on above: Performed By: #### 1 7185225, 2500276, 61134244, 44619154, 4304215, 92524309, 1337174, 0296381, 3361487, 2099493 ####[address] [address] Lymphocytes/100 WBC (Bld) 30.9 % Normal 14.0-50.0 [facility] Comment on above: Performed By: #### 1 2256693, 3057797, 33072316, 77432818, 1168005, 07768769, 7577619, 6373813, 2583206, 0424954 ####[address] [address] MCH (RBC) [Entitic mass] 27.6 pg Normal 27.0-34.0 [facility] Comment on above: Performed By: #### 1 5669867, 0565836, 88340323, 03431174, 0326888, 23764638, 7391372, 2513055, 6606382, 6372065 ####[address] [address] MCHC (RBC) [Mass/Vol] 32.8 g/dL Normal 31.4-36.0 [facility] Comment on above: Performed By: #### 1 3961219, 9208875, 02407538, 53565856, 7598860, 04907439, 9940067, 1903256, 3762400, 5348107 ####[address] [address] MCV (RBC) [Entitic vol] 84.3 fL Normal 80.0-100.0 [facility] Comment on above: Performed By: #### 1 8980978, 2179609, 80643377, 39076809, 9571760, 95620365, 7509089, 4726780, 3620445, 1438348 ####[facility] [address] [place] [address] [place] Absolute 0.9 E9/L Normal 0.2-1.0 [facility] Comment on above: Performed By: #### 1 0458860, 6783039, 41904467, 00883897, 8445717, 79231941, 7470540, 1146808, 0376511, 1915580 ####[address] [place] [address] Monocytes/100 WBC (Bld) 8.1 % Normal 4.0-14.0 [facility] Comment on above: Performed By: #### 1 4261949, 2283201, 70434589, 29144336, 5853584, 85796789, 3511095, 4621506, 7421043, 4682297 ####[address] [address] Neutro Absolute 6.6 E9/L Normal 2.0-7.5 [place] Comment on above: Performed By: #### 1 6480959, 1938177, 07734242, 99737643, 2842478, 90529344, 1405730, 5840445, 7594350, 4851569 ####[address] [place] [address] Neutro Auto 56.6 % Normal 36.0-75.0 [facility] Comment on above: Performed By: #### 1 8288605, 4743040, 62215175, 71464163, 5454870, 38278967, 4583445, 4494623, 8132397, 4272522 ####[address] [place] [address] Platelet 431.0 E9/L Normal 150.0-500.0 [facility] Comment on above: Performed By: #### 1 5274944, 3586984, 33424055, 48254240, 8286573, 80683642, 9993070, 7348827, 5920061, 3300727 ####[facility] [address] [place] [address] Platelet mean volume (Bld) [Entitic vol] 8.5 fL Normal 6.4-10.8 [facility] Comment on above: Performed By: #### 1 1584678, 4028046, 93143991, 02485976, 6283546, 01462642, 3350251, 6626856, 3126759, 9998033 ####[facility] [address] [place] [address] RBC 5.5 E12/L Normal 4.3-5.9 [facility] Comment on above: Performed By: #### 1 6555641, 8710146, 46289745, 96419188, 3907097, 32743362, 2083903, 1688309, 0790220, 8485054 ####[facility] [address] [place] [address] WBC 11.6 E9/L High 4.0-11.0 [facility] Comment on above: Performed By: #### 1 3086303, 9658868, 40421624, 37238801, 7788028, 57795511, 0520318, 9159726, 5916221, 6041212 ####[facility] [address] [place] [address] CHEMISTRYOrdered By: SYSTEM SYSTEM on 07-05-2023 Troponin 51.10 pg/mL Invalid Interpretation Code 10.10 - 27.10 pg/mL Rem[facility] Chem Comment on above: Result Comment: Crit ical Result I_TnIHS:51.1 Called to and read back by: DR. JUAN MAS at: 07/05/2023 21:51:38 by:[id number] Critical Result Verified by Previous Result Interpretive Data: T he 95% CI (Confidence Interval) PPV (Positive Predictive Value) for myocardial infarction in females is 38 pg/mL, in males 51 pg/mL. The results should be used in conjunction with clinical conditions of myocardial infarction. (Access High Sensitivity Troponin I Instructions For Use, [employer], December 2017) Troponin 51.70 pg/mL Invalid Interpretation Code 10.10 - 27.10 pg/mL [facility] Chem S Comment on above: Interpretive Data: T he 95% CI (Confidence Interval) PPV (Positive Predictive Value) for myocardial infarction in females is 38 pg/mL, in males 51 pg/mL. The results should be used in conjunction with clinical conditions of myocardial infarction. (Access High Sensitivity Troponin I Instructions For Use, [employer], December 2017) Result Comment: Crit ical Result [...] back by: JOHNNA PERKINS at: 07/05/2023 16:37:35 by:[id number] Interpretive Data: T he 95% CI (Confidence [...] 508 pg/mL High 5 - 80 pg/mL [facility] COAGULATIONOrdered By: Richar Kumar on 07-05-2023 aPTT Coag (PPP) [Time] 27.2 s Normal 25.1 - 36.5 second(s) [facility] Auto Coag Comment on above: Interpretive Data: [...] the same coagulation reagent and instrumentation as [facility]. Currently there are no coagulation studies available worldwide for children to 14 days, and no normal ranges. Heparin therapeutic range (represented by Anti-Factor Xa activity of 0.2 - 0.4 U/mL) corresponds to PTT of 56.6 - 109.0 sec. INR Coag (PPP) [Relative time] 1.01 {INR} Invalid Interpretation Code [facility] Auto Coag Comment on above: Interpretive Data: I NR results are specifically intended to assess patients stabilized on long-term Anticoagulation therapy suggested INR s Less Intensive Anticoagulation 2.0 3.0 Conventional Range 3.0 4.5 PT Coag (PPP) [Time] 11.2 s Normal 9.4 - 1 2.5 second(s) [facility] Auto Coag Comment on above: Interpretive Data: [...] the same coagulation reagent and instrumentation as [facility]. Currently there are no coagulation studies available worldwide for children to 14 days, and no normal ranges. Consent for Treatment 06-15 Consent for Treatment [id number]#1 .00TIFF Normal [facility] Digoxinon 07-05-2023 Digoxin Lvl <0.2 Low 0.5-1.9 [facility] Comment on above: Performed By: #### 1 [id number], 2611011, 17951544, 20519155, 7250850, 86641642, 3937206, 7436956, 8290565, 4399382 ####[facility] [address] [place] [address] ED Note-Physicianon 07-05-19 24 ED Note-Physician Basic Information Time Seen: Cher Perkisn PA-C 07/05/2023 15:06 Chief Complaint Pt ca/me [...] patient states she was just released from [facility] hours ago. She states she [...] acute int (more content not included)... Normal [facility] Comment on above: Result Comment: Elec tronically Signed By: Cher Perkins PA-C\.br\Date and Time Signed: 07/05/23 18:57 EST\.br\Electronically Co-Signed By: Cher Perkins PA-C\.br\Date and Time Co-Signed: 07/05/23 18:58 EST\.br\Electronically Co-Signed By: Arsenio aMrtin DO\.br\Date and Time Co-Signed: 07/05/23 19:01 EST [...] Normal 80.0 - 100.0 fL Remisol Heme [place] Absolute 0.9 E9/L Normal 0.2 - 1.0 [...] 07-05-2023 Albumin [Mass/Vol] 4.3 g/dL Normal 3.3-5.0 [facility] Comment on above: Performed By: #### 1 [id number], 8410097, 84886296, 77755654, 4663689, 79539659, 9227498, 5495038, 7535249, 4768821 ####[facility] [address] [place] [address] Albumin/Globulin [Mass ratio] 1.4 {ratio} Normal 1.1-2.2 [facility] Comment on above: Performed By: #### 1 4148084, 8149367, 52352062, 43814209, 2893267, 24756348, 0138858, 1186525, 1213281, 0076989 ####[facility] [address] [place] [address] Alk Phos 77 Int._Unit/L Normal 21-98 [facility] Comment on above: Performed By: #### 1 1790198, 1189653, 80659624, 10022115, 1177863, 87161299, 0152997, 0480282, 2998032, 1529682 ####[address] [place] [address] ALT 20 Int._Unit/L Normal 6-46 [facility] Comment on above: Performed By: #### 1 7211564, 9355274, 93907897, 93363937, 7510681, 34528166, 5287071, 6216554, 1115315, 4758466 ####[address] [place] [address] AST 23 Int._Unit/L Normal 5-43 [facility] Comment on above: Performed By: #### 1 8414353, 1600808, 93500225, 27404862, 3096550, 31968644, 8717325, 8827442, 4354338, 0182635 ####[facility] [address] [place] [address] Bili Direct 0.1 mg/dL Normal 0.0-0.4 [facility] Comment on above: Performed By: #### 1 1444181, 7012730, 43487394, 92152791, 3187415, 87348086, 3923309, 8798655, 9897549, 4668703 ####[facility] [address] [place] [address] Bili Indirect 0.5 mg/dL Normal 0.1-0.9 [facility] Comment on above: Performed By: #### 1 0605587, 1475562, 61728146, 71958758, 8705972, 22778121, 6358499, 8460638, 7410066, 4274087 ####[facility] [address] [place] [address] Bili Total 0.6 mg/dL Normal 0.0-1.1 [facility] Comment on above: Performed By: #### 1 3615094, 6771629, 82968650, 32578486, 7529311, 37864446, 2413510, 9429889, 2859554, 8254994 ####[facility] [address] [place] [address] Globulin (S) [Mass/Vol] 3.0 g/dL Normal 1.4-4.0 [facility] Comment on above: Performed By: #### 1 6913973, 6734124, 98179043, 22774424, 8897440, 00813542, 4309714, 9717038, 5843930, 4565075 ####[facility] [address] [place] [address] Protein [Mass/Vol] 7.3 g/dL Normal 6.0-7.8 [facility] Comment on above: Performed By: #### 1 8640504, 7179446, 99756260, 38346287, 2158257, 92674836, 4608770, 6772753, 4471948, 3892243 ####[facility] [address] [place] [address] Lipase Levelon 07-05-2023 Lipase Lvl 22 unit/L Normal 13-58 [facility] Comment on above: Performed By: #### 1 8592771, 4601841, 96446132, 05900506, 2725888, 78905581, 1799426, 4453024, 8370898, 7655896 ####[facility] [address] [place] [address] Magnesiumon 07-05-2023 Magnesium [Mass/Vol] 2.3 mg/dL Normal 1.3-2.4 [facility] Comment on above: Performed By: #### 1 1403314, 0007290, 81280293, 58533591, 6363013, 71645955, 9467228, 3851277, 2924483, 5420292 ####[facility] [address] [place] [address] Monitor Recordon 07-05-2023 Monitor Record [id number]# 1.00TIFF Normal [facility] Monitor Record [id number]# 1.00TIFF Normal [facility] Monitor Record [id number]# 1.00TIFF Normal [facility] PT & PTTon 07-05-2023 aPTT Coag (PPP) [Time] 27.2 second(s) Normal 25.1-36.5 [facility] Comment on above: Result Comment: Para meter [...] the same coagulation reagent and instrumentation as [facility]. Currently there are no coagulation studies available worldwide for children to 14 days, and no normal ranges. Heparin therapeutic range (represented by Anti-Factor Xa activity of 0.2 - 0.4 U/mL) corresponds to PTT of 56.6 - 109.0 sec. Performed By: #### 1 9145312, 0222221, 41654934, 71776836, 9186449, 21844279, 6812005, 9539896, 8394268, 9063432 ####[facility] [address] [place] [address] INR Coag (PPP) [Relative time] 1.01 {INR} Invalid Interpretation Code [facility] Comment on above: Result Comment: INR results are specifically intended to assess patients stabilized on long-term Anticoagulation therapy suggested INR?s ?Less Intensive Anticoagulation? 2.0 ? 3.0 Conventional Range 3.0 ? 4.5 Performed By: #### 1 2515042, 5777723, 95368042, 18929378, 8499631, 31708792, 1618881, 2628275, 6476615, 0843114 ####[facility] [address] [place] [address] PT Coag (PPP) [Time] 11.2 second(s) Normal 9.4-12.5 [facility] Comment on above: Result Comment: 15 d [...] the same coagulation reagent and instrumentation as [facility]. Currently there are no coagulation studies available worldwide for children to 14 days, and no normal ranges. Performed By: #### 1 4166087, 4162210, 63140947, 11877422, 7225769, 78499882, 8714142, 1684020, 5817968, 1974088 ####[facility] [address] [place] [address] Pre-Arrival Noteon Pre-Arrival Note Pre-Arrival Summary Name: , [facility] Current Date: 07/05/2023 15:02:00 EST Gender: Female Date of : Age: 63 Pre-Arrival Type: EMS ETA: 07/05/2023 15:21:00 EST Primary Care Physician: Presenting Problem: HR 40s, CP, SOB, dizziness, abd. pain, nausea Pre-Arrival User: Oxana Pace RN Referring Source: Location: [place] Completion Date/Time: 07/05/2023 14:51:00 [facility] Emergency Department Pre-Hospital Report Form Vital Signs: Pre-Hospital Report: Treatment in Route: Response to Treatment: Misc. Issues: Normal [facility] Troponin 0 Hr.on 07-05-2023 Troponin 49.20 pg/mL Abnormal 10.10-27.10 [facility] Comment on above: Result Comment: Steven gonzalez Result Verified by Repeat Analysis Critical Result I_TnIHS:49.2 Called to and read back by: JOHNNA PERKINS at: 07/05/2023 16:37:35 by:[email or web address] The 95% CI (Confidence Interval) PPV (Positive Predictive Value) for myocardial infarction in females is 38 pg/mL, in males 51 pg/mL. The results should be used in conjunction with clinical conditions of myocardial infarction. (Access High Sensitivity Troponin I Instructions For Use, [employer], December 2017) Performed By: #### 1 9769243, 0793244, 93305114, 96386048, 1968217, 46388710, 7223611, 8661083, 0117304, 7787887 ####[facility] [place] [address] Troponin 3 Hr.on 07-05-2023 Troponin 51.70 pg/mL Abnormal 10.10-27.10 [facility] Comment on above: Result Comment: The 95% CI (Confidence Interval) PPV (Positive Predictive Value) for myocardial infarction in females is 38 pg/mL, in males 51 pg/mL. The results should be used in conjunction with clinical conditions of myocardial infarction. (Access High Sensitivity Troponin I Instructions For Use, [employer], December 2017) Critical Result Verified by Previous Result Results Called To Johnna Perkins (ER) By STANFORD And Read Back For Confirmation On 07/05/2023 19:18:03 EST. Performed By: #### 1 [id number] ####[facility] [address] [place] [address] Troponin 6 Hr.on 07-05-2023 Troponin 51.10 pg/mL Abnormal 10.10-27.10 [facility] Comment on above: Result Comment: Crit ica Result I_TnIHS:51.1 Called to and read back by: DR. JUAN MAS at: 07/05/2023 21:51:38 by:[id number] Critical Result Verified by Previous Result The 95% CI (Confidence Interval) PPV (Positive Predictive Value) for myocardial infarction in females is 38 pg/mL, in males 51 pg/mL. The results should be used in conjunction with clinical conditions of myocardial infarction. (QuadROI High Sensitivity Troponin I Instructions For Use, [employer], December 2017) Performed By: #### 1 [id number] ####[facility] [address] [place] [address] XR Chest Single Viewon 07-05 XR Chest [...] mGy = na DAP = na Normal [facility] eGFRon 07-05-2023 eGFR 39 mL/min/1.73 m2 Low >=59 [facility] Comment on above: Order Comment: Order added by Discern Expert. Performed By: #### 1 1485654, 9070299, 52583943, 68021796, 5117085, 71862522, 5653585, 8175193, 5487873, 1927082 ####[facility] [address] [place] [address] 36on 07-03-2023 36 Unable to reach pt . Phone not in service [facility] 36 Pts phone number not in service. Spoke to pts friend Arvind and requested he have pt call us, he agrees. [facility] Documentationon 07-03-2023 Documentation [id number] Vivian Vann 1960 F Date Provider Department Center 07/03/2023 [address]-TFPFWVTMARKO [facility] No family history on file Reason for Visit and Comments: HF inpatient satisfaction robyn sent. [Other] [facility] 30on 07-02-2023 30 The patient is [...] and behaviors that affect risk of falls Bryan fall precautions as indicated by assessment Educate [...] and prevent overall improvement and discharge Normal [facility] 30 The patient is Moderately [...] and behaviors that affect risk of falls Bryan fall precautions as indicated by assessment Educate [...] and prevent overall improvement and discharge Normal [facility] BASIC METABOLIC PANELon 06-14 Anion gap [Moles/Vol] 11 mmol/L Normal 7-20 [facility] Comment on above: Performed By: #### L [id number] #### [facility] ([facility]) [address] [place] [address] Calcium [Mass/Vol] 9.0 mg/dL Normal 8.6-10.3 [facility] Comment on above: Performed By: #### L [id number] #### [facility] (BEAKER) [address] [place] [address] Chloride [Moles/Vol] 91 mmol/L Low 98-107 [facility] Comment on above: Performed By: #### L [id number] #### [facility] ([facility]AK[facility]) [address] [place] [address] CO2 [Moles/Vol] 37 mmol/L High 21-31 [facility] Comment on above: Performed By: #### L [id number] #### [facility] ([facility]AK[facility]) [address] [place] [address] Creatinine [Mass/Vol] 0.89 mg/dL Normal 0.60-1.20 [facility] Comment on above: Performed By: #### L [id number] #### [facility] (BEAKER) [address] [place] [address] GLOMERULAR FILTRATION RATE ML/MIN/1.73 SQ M.PREDICTED 73.3 mL/min/1.73m*2 Normal >60.0 [facility] Comment on above: Result Comment: [facility]???s estimated glomerular filtration rate (eGFR) [...] individuals. Performed By: #### L [id number] #### [facility] ([facility]) [address] [place] [address] Glucose [Mass/Vol] 123 mg/dL High 70-100 [facility] Comment on above: Performed By: #### L [id number] #### [facility] ([facility]) [address] [place] [address] Potassium [Moles/Vol] 3.7 mmol/L Normal 3.5-5.1 [facility] Comment on above: Performed By: #### L [id number] #### [facility] ([facility]) [address] [place] [address] Sodium [Moles/Vol] 135 mmol/L Low 136-145 [facility] Comment on above: Performed By: #### L [id number] #### [facility] ([facility]) [address] [place] [address] Urea nitrogen [Mass/Vol] 29 mg/dL High 7-25 [facility] Comment on above: Performed By: #### L [id number] #### [facility] ([facility]) [address] [place] [address] UREA NITROGEN/CREATININE (MASS RATIO) IN SER/PLAS 32.6 Normal [facility] Comment on above: Performed By: #### L [id number] #### [facility] ([facility]) [address] [place] [address] CBCon 07-02-2023 Erythrocyte distribution width (RBC) [Ratio] 15.8 % High 11.5-15.0 [facility] Comment on above: Performed By: #### L [id number] ####[facility] (BEAKER)[address] [place] [address] ERYTHROCYTE MEAN CORPUSCULAR HEMOGLOBIN CONCENTRATION (G/DL) BY AUTOMATED 31.8 g/dL Low 32.0-35.0 [facility] Comment on above: Performed By: #### L [id number] ####[facility] ([facility] [place] [address] Hematocrit (Bld) [Volume fraction] 44.0 % Normal 36.0-48.0 [facility] Comment on above: Performed By: #### L [id number] ####[facility] ([facility] [place] [address] Hemoglobin (Bld) [Mass/Vol] 14.0 g/dL Normal 12.0-15.0 [facility] Comment on above: Performed By: #### L [id number] ####[facility] ([facility] [place] [address] MCH (RBC) [Entitic mass] 27.9 pg Normal 27.0-33.0 [facility] Comment on above: Performed By: #### L [id number] ####[facility] (BEAKER)[address] [place] [address] MCV (RBC) [Entitic vol] 87.8 fL Normal 82.0-98.0 [facility] Comment on above: Performed By: #### L [id number] ####[facility] (BEAKER)[address] [place] [address] PLATELETS (10*3/UL) IN BLOOD AUTOMATED COUNT 285 10*3/uL Normal 150-400 [facility] Comment on above: Performed By: #### L [id number] ####[facility] (BEAKER)[address] [place] [address] RBC (Bld) [#/Vol] 5.01 10*6/uL High 3.80-5.00 [facility] Comment on above: Performed By: #### L [id number] ####[facility] ([facility])[address] [place] [address] WBC (Bld) [#/Vol] 8.89 10*3/uL Normal 4.00-10.60 [facility] Comment on above: Performed By: #### L [id number] ####[facility] ([facility])[address] [place] [address] DSon 07-02-2023 DS Admit Date 06/29/2023 Discharge Date 07/02/2023 Discharge Diagnosis NSTEMI Acute on chronic HFpEF NYHA class 2 CAD DMII noninsulin dependent Chronic pain Anxiety GERD Tobacco abuse Discharge Disposition Home-Health Care [facility] () Discharge Medications Your medication list START [...] medications were sent to [facility] - [place], [place] - [address] [facility] [address] [place] [address] [address] [place] [address], [facility] [address] furosemide 40 mg tablet spironolactone 25 mg tablet Activity Normal activity as tolerated Diet Continue on the same type of diet and foods as you were eating before your admission. Drink plenty of water. Allergies Hay fever and allergy relief and House dust Hospital Course History of Present Illness Vivian Vann is an 63 y.o. female who came from [facility] as direct asmission for NSTEMI. Patient presented 06/28/23 to [facility] for c/o chest pain and lower back pain. Patient troponin level found to be 557 and EKG showed new ischemia and inverted T-waves, NSTEMI. She was given nitroglycerin and started on heparin drip. Patient is 1 year s/p stent placement at [facility] on plavix and aspirin. Dr. Chapa with cardiology agreed to patient transfer here to [facility] with hospital medicine admitting and cardiology consult [...] Low back pending. Laboratory workup here at [facility] shows CBC unremarkable w/ exception of NCHC [...] General: Abdo (more content not included)... Normal [facility] POCT GLUCOSE METER UNSOLICIT ED RESULTSon 07-02-2023 Glucose [Mass/Vol] 117 mg/dL High 70-105 [facility] Comment on above: Order Comment: Waive d Testing in the ED is performed under the ED CLIA certificate #[id number]. Result Comment: [email or web address] Performed By: #### L [id number] #### [facility] ([facility]AKER) [address] [place] [address] Glucose [Mass/Vol] 110 mg/dL High 70-105 [facility] Comment on above: Order Comment: Waive d Testing in the ED is performed under the ED CLIA certificate #[id number]. Result Comment: [email or web address] Performed By: #### L [id number] ####[facility] ([facility]ER)[address] [place] [address] 30on 07-01-2023 30 The patient is Moderately [...] and behaviors that affect risk of falls Bryan fall precautions as indicated by assessment Educate [...] and prevent overall improvement and discharge Normal [facility] BASIC METABOLIC PANELon 06-14 Anion gap [Moles/Vol] 10 mmol/L Normal 7-20 [facility] Comment on above: Performed By: #### L [id number] ####[facility] ([facility]ER)[address] [place] [address] Calcium [Mass/Vol] 8.3 mg/dL Low 8.6-10.3 [facility] Comment on above: Performed By: #### L [id number] ####[facility] ([facility])[address] [place] [address] Chloride [Moles/Vol] 98 mmol/L Normal 98-107 [facility] Comment on above: Performed By: #### L [id number] ####[facility] ([facility])[address] [place] [address] CO2 [Moles/Vol] 35 mmol/L High 21-31 [facility] Comment on above: Performed By: #### L [id number] ####[facility] ([facility])[address] [place] [address] Creatinine [Mass/Vol] 1.08 mg/dL Normal 0.60-1.20 [facility] Comment on above: Performed By: #### L [id number] ####[facility] ([facility])[address] [place] [address] GLOMERULAR FILTRATION RATE ML/MIN/1.73 SQ M.PREDICTED 58.1 mL/min/1.73m*2 Low >60.0 [facility] Comment on above: Result Comment: [facility]???s estimated glomerular filtration rate (eGFR) [...] of individuals. Performed By: #### L [id number] ####[facility] ([facility])[address] [place] [address] Glucose [Mass/Vol] 116 mg/dL High 70-100 [facility] Comment on above: Performed By: #### L [id number] ####[facility] ([facility])[address] [place] [address] Potassium [Moles/Vol] 3.7 mmol/L Normal 3.5-5.1 [facility] Comment on above: Performed By: #### L [id number] ####[facility] ([facility])[address] [place] [address] Sodium [Moles/Vol] 139 mmol/L Normal 136-145 [facility] Comment on above: Performed By: #### L [id number] ####[facility] ([facility])[address] [place] [address] Urea nitrogen [Mass/Vol] 27 mg/dL High 7-25 [facility] Comment on above: Performed By: #### L [id number] ####[facility] ([facility])[address] [place] [address] UREA NITROGEN/CREATININE (MASS RATIO) IN SER/PLAS 25.0 Normal [facility] Comment on above: Performed By: #### L [id number] ####[facility] ([facility])[address] [place] [address] POCT GLUCOSE METER UNSOLICIT ED RESULTSon 07-01-2023 Glucose [Mass/Vol] 132 mg/dL High 70-105 [facility] Comment on above: Order Comment: Waive d Testing in the ED is performed under the ED CLIA certificate #[id number]. Result Comment: [email or web address] weir Performed By: #### L [id number] ####[facility] ([facility])[address] [place] [address] Glucose [Mass/Vol] 106 mg/dL High 70-105 [facility] Comment on above: Order Comment: Waive d Testing in the ED is performed under the ED CLIA certificate #[id number]. Result Comment: mick rad Performed By: #### L [id number] #### [facility] ([facility]) [address] [place] [address] Glucose [Mass/Vol] 121 mg/dL High 70-105 [facility] [place] [facility] Comment on above: Order Comment: Waive d Testing in the ED is performed under the ED CLIA certificate #[id number]. Result Comment: wwar rad Performed By: #### L [id number] ####[facility] ([facility])[address] [place] [address] Glucose [Mass/Vol] 105 mg/dL Normal 70-105 [facility] Comment on above: Order Comment: Waive d Testing in the ED is performed under the ED CLIA certificate #[id number]. Result Comment: wwar rad Performed By: #### L [id number] ####[facility] ([facility])[address] [place] [address] 30on 06-30-2023 30 The patient is Moderately [...] and maintained or improved Outcome: Progressing Normal [facility] ANTI-XA (HEPARIN LEVEL)on HEPARIN UNFRACTIONATED (U/ML) IN PPP BY CHROMOGENIC METHOD <0.10 Invalid Interpretation Code 0.3-0.7 [facility] Comment on above: Order Comment: Check anti-Xa level every 6 hours while on heparin infusion, or per protocol. Result Comment: Clare roxaban and Apixaban will interfere with the anti Xa assay used to monitor UFH and LMWH. Performed By: #### L [id number] #### [facility] ([employer] [facility] [employer] [facility] [address] [place] [address] CBCon 06-30-2023 Erythrocyte distribution width (RBC) [Ratio] 15.3 % High 11.5-15.0 [facility] Comment on above: Performed By: #### L [id number] ####[facility] (BEAKER)[address] [place] [address] ERYTHROCYTE MEAN CORPUSCULAR HEMOGLOBIN CONCENTRATION (G/DL) BY AUTOMATED 32.2 g/dL Normal 32.0-35.0 [facility] Comment on above: Performed By: #### L [id number] ####[facility] (BEAKER)[address] [place] [address] Hematocrit (Bld) [Volume fraction] 35.7 % Low 36.0-48.0 [facility] Comment on above: Performed By: #### L [id number] ####[facility] (BEAKER)[address] [place] [address] Hemoglobin (Bld) [Mass/Vol] 11.5 g/dL Low 12.0-15.0 [facility] Comment on above: Performed By: #### L [id number] ####[facility] (BEAKER)[address] [place] [address] MCH (RBC) [Entitic mass] 28.1 pg Normal 27.0-33.0 [facility] Comment on above: Performed By: #### L [id number] ####[facility] (BEAKER)[address] [place] [address] MCV (RBC) [Entitic vol] 87.3 fL Normal 82.0-98.0 [facility] Comment on above: Performed By: #### L [id number] ####[facility] (BEAKER)[address] [place] [address] PLATELETS (10*3/UL) IN BLOOD AUTOMATED COUNT 219 10*3/uL Normal 150-400 [facility] Comment on above: Performed By: #### L [id number] ####[facility] (BEAKER)[address] [place] [address] RBC (Bld) [#/Vol] 4.09 10*6/uL Normal 3.80-5.00 [facility] Comment on above: Performed By: #### L [id number] ####[facility] (BEAKER)[address] [place] [address] WBC (Bld) [#/Vol] 10.22 10*3/uL Normal 4.00-10.60 [facility] Comment on above: Performed By: #### L [id number] ####[facility] (ANDRIY)[address] [place] [address] CONSULTon 06-30-2023 CONSULT Clinical Nutrition Assessment Name: [...] with questions and contact the dietitian via [employer] chat 8A-4P Sunday-Sunday. Or call the dietitian's office at extension [phone]. For weekends/holidays, the dietitian's can be reached by paging [phone] from 9A-3P. Unable to be reached via [employer] chat on Sunday & .) Normal [facility] HEMOGLOBIN A1Con 06-30-2023 Glucose [Mass/Vol] 143 mg/dL Normal [facility] Comment on above: Performed By: #### L [id number] #### [facility] ([employer] [facility] [employer] [facility]) [address] [place] [address] HbA1c (Bld) [Mass fraction] 6.6 % High 4.0-6.0 [facility] Comment on above: Performed By: #### L [id number] #### [facility] ([employer] [facility]) [address] [place] [address] LACTIC ACID WITH 4 HOUR REFL EXon 06-30-2023 LACTATE (MMOL/L) IN SER/PLAS 1.9 mmol/L Normal 0.5-2.2 [facility] Comment on above: Performed By: #### L [id number] #### [facility] ([employer] [facility]) [address] [place] [address] POCT GLUCOSE METER UNSOLICIT ED RESULTSon 06-30-2023 Glucose [Mass/Vol] 156 mg/dL High 70-105 [facility] Comment on above: Order Comment: Waive d Testing in the ED is performed under the ED CLIA certificate #[id number]. Result Comment: [email or web address] Performed By: #### L [id number] #### [facility] ([employer]) [address] [place] [address] Glucose [Mass/Vol] 149 mg/dL High 70-105 [facility] Comment on above: Order Comment: Waive d Testing in the ED is performed under the ED CLIA certificate #[id number]. Result Comment: [email or web address] [email or web address] Performed By: #### L [id number] #### [facility] ([employer]) [address] [place] [address] Glucose [Mass/Vol] 181 mg/dL High 70-105 [facility] Comment on above: Order Comment: Waive d Testing in the ED is performed under the ED CLIA certificate #[id number]. Result Comment: [email or web address] [email or web address] Performed By: #### L [id number] #### [facility] ([employer] [facility]) [address] [place] [address] 30on 06-29-2023 30 The patient is Moderately [...] and maintained or improved Outcome: Progressing Normal [facility] 30 The patient is Moderately Stable - Low risk of patient condition declining or worsening The patient's goals for the shift include no chest pain The clinical goals for the shift include vss Over the shift, the patient did not make progress toward the following goals. Barriers to progression include . Recommendations to address these barriers include . Normal [facility] APTTon 06-29-2023 ACTIVATED PARTIAL THROMBOPLASTIN TIME IN PPP BY COAGULATION ASSAY 67.3 Seconds High 25.0-35.0 [facility] Comment on above: Result Comment: Clin ical significance of the APTT is questionable in the presence of heparin. Performed By: #### L [id number] #### [facility] ([employer] [facility]) [address] [place] [address] B-TYPE NATRIURETIC PEPTIDEon 06-29-2023 Natriuretic peptide B (Bld) [Mass/Vol] 1683 pg/mL High 0-100 [facility] Comment on above: Performed By: #### L [id number] #### [facility] ([employer] [facility]) [address] [place] [address] BASIC METABOLIC PANELon 06-14 Anion gap [Moles/Vol] 14 mmol/L Normal 7-20 [facility] Comment on above: Performed By: #### L [id number] #### [facility] (BEAKER) [address] [place] [address] Calcium [Mass/Vol] 8.2 mg/dL Low 8.6-10.3 [facility] Comment on above: Performed By: #### L [id number] #### [facility] ([facility] [address] [place] [address] Chloride [Moles/Vol] 102 mmol/L Normal 98-107 [facility] Comment on above: Performed By: #### L [id number] #### [facility] (BEAKER) [address] [place] [address] CO2 [Moles/Vol] 25 mmol/L Normal 21-31 [facility] Comment on above: Performed By: #### L [id number] #### [facility] ([facility] [address] [place] [address] Creatinine [Mass/Vol] 1.04 mg/dL Normal 0.60-1.20 [facility] Comment on above: Performed By: #### L [id number] #### [facility] ([employer] [facility]) [address] [place] [address] GLOMERULAR FILTRATION RATE ML/MIN/1.73 SQ M.PREDICTED 60.8 mL/min/1.73m*2 Normal >60.0 [facility] Comment on above: Result Comment: [facility]???s estimated glomerular filtration rate (eGFR) [...] individuals. Performed By: #### L [id number] #### [facility] ([facility] [address] [place] [address] Glucose [Mass/Vol] 268 mg/dL High 70-100 [facility] Comment on above: Performed By: #### L [id number] #### [facility] ([employer]) [address] [place] [address] Potassium [Moles/Vol] 4.1 mmol/L Normal 3.5-5.1 [facility] Comment on above: Performed By: #### L [id number] #### [facility] ([employer] [facility]) [address] [place] [address] Sodium [Moles/Vol] 137 mmol/L Normal 136-145 [facility] Comment on above: Performed By: #### L [id number] #### [facility] ([employer] [facility]) [address] [place] [address] Urea nitrogen [Mass/Vol] 14 mg/dL Normal 7-25 [facility] Comment on above: Performed By: #### L [id number] #### [facility] ([employer] [facility]) [address] [place] [address] UREA NITROGEN/CREATININE (MASS RATIO) IN SER/PLAS 13.5 Normal [facility] Comment on above: Performed By: #### L [id number] #### [facility] ([employer] [facility]) [address] [place] [address] CBCon 06-29-2023 Erythrocyte distribution width (RBC) [Ratio] 15.3 % High 11.5-15.0 [facility] Comment on above: Performed By: #### L [id number] #### [facility] ([employer] [facility]) [address] [place] [address] ERYTHROCYTE MEAN CORPUSCULAR HEMOGLOBIN CONCENTRATION (G/DL) BY AUTOMATED 31.8 g/dL Low 32.0-35.0 [facility] Comment on above: Performed By: #### L [id number] #### [facility] ([employer] [facility]) [address] [place] [address] Hematocrit (Bld) [Volume fraction] 39.3 % Normal 36.0-48.0 [facility] Comment on above: Performed By: #### L [id number] #### [facility] ([employer] [facility]) [address] [place] [address] Hemoglobin (Bld) [Mass/Vol] 12.5 g/dL Normal 12.0-15.0 [facility] Comment on above: Performed By: #### L [id number] #### [facility] ([employer] [facility]) [address] [place] [address] MCH (RBC) [Entitic mass] 28.4 pg Normal 27.0-33.0 [facility] Comment on above: Performed By: #### L [id number] #### [facility] ([employer] [facility]) [address] [place] [address] MCV (RBC) [Entitic vol] 89.3 fL Normal 82.0-98.0 [facility] Comment on above: Performed By: #### L [id number] #### [facility] ([employer] [facility]) [address] [place] [address] PLATELETS (10*3/UL) IN BLOOD AUTOMATED COUNT 218 10*3/uL Normal 150-400 [facility] Comment on above: Performed By: #### L [id number] #### [facility] ([employer] [facility]) [address] [place] [address] RBC (Bld) [#/Vol] 4.40 10*6/uL Normal 3.80-5.00 [facility] Comment on above: Performed By: #### L [id number] #### [facility] ([employer] [facility]) [address] [place] [address] WBC (Bld) [#/Vol] 9.91 10*3/uL Normal 4.00-10.60 [facility] Comment on above: Performed By: #### L [id number] #### [facility] ([employer] [facility]) [address] [place] [address] COMPREHENSIVE METABOLIC PANE Pollo 06-29-2023 Albumin [Mass/Vol] 3.8 g/dL Normal 3.5-5.7 [facility] Comment on above: Performed By: #### L [id number] #### [facility] ([facility]) [address] [place] [address] ALP [Catalytic activity/Vol] 77 U/L Normal 34-104 [facility] Comment on above: Performed By: #### L [id number] #### [facility] ([employer] [facility]) [address] [place] [address] ALT [Catalytic activity/Vol] 23 U/L Normal 7-52 [facility] Comment on above: Performed By: #### L [id number] #### [facility] ([employer] [facility]) [address] [place] [address] Anion gap [Moles/Vol] 10 mmol/L Normal 7-20 [facility] Comment on above: Performed By: #### L [id number] #### [facility] ([employer] [facility]) [address] [place] [address] AST [Catalytic activity/Vol] 23 U/L Normal 13-39 [facility] Comment on above: Performed By: #### L [id number] #### [facility] ([employer] [facility]) [address] [place] [address] Bilirubin [Mass/Vol] 0.4 mg/dL Normal 0.3-1.0 [facility] Comment on above: Performed By: #### L [id number] #### [facility] ([facility]) [address] [place] [address] Calcium [Mass/Vol] 8.6 mg/dL Normal 8.6-10.3 [facility] Comment on above: Performed By: #### L [id number] #### [facility] ([facility]) [address] [place] [address] Chloride [Moles/Vol] 107 mmol/L Normal 98-107 [facility] Comment on above: Performed By: #### L [id number] #### [facility] ([facility]) [address] [place] [address] CO2 [Moles/Vol] 27 mmol/L Normal 21-31 [facility] Comment on above: Performed By: #### L [id number] #### [facility] ([employer] [facility]) [address] [place] [address] Creatinine [Mass/Vol] 1.01 mg/dL Normal 0.60-1.20 [facility] Comment on above: Performed By: #### L [id number] #### [facility] ([employer] [facility]) [address] [place] [address] GLOMERULAR FILTRATION RATE ML/MIN/1.73 SQ M.PREDICTED 62.9 mL/min/1.73m*2 Normal >60.0 [facility] Comment on above: Result Comment: [facility]???s estimated glomerular filtration rate (eGFR) [...] individuals. Performed By: #### L [id number] #### [facility] ([employer] [facility]) [address] [place] [address] Glucose [Mass/Vol] 148 mg/dL High 70-100 [facility] Comment on above: Performed By: #### L [id number] #### [facility] ([facility]) [address] [place] [address] Potassium [Moles/Vol] 4.2 mmol/L Normal 3.5-5.1 [facility] Comment on above: Performed By: #### L [id number] #### [facility] ([employer] [facility]) [address] [place] [address] Protein [Mass/Vol] 6.3 g/dL Normal 6.0-8.3 [facility] Comment on above: Performed By: #### L [id number] #### [facility] ([employer] [facility] [facility]) [address] [place] [address] Sodium [Moles/Vol] 140 mmol/L Normal 136-145 [facility] Comment on above: Performed By: #### L [id number] #### [facility] ([employer] [facility]) [address] [place] [address] Urea nitrogen [Mass/Vol] 10 mg/dL Normal 7-25 [facility] Comment on above: Performed By: #### L [id number] #### [facility] ([employer] [facility]) [address] [place] [address] UREA NITROGEN/CREATININE (MASS RATIO) IN SER/PLAS 9.9 Normal [facility] Comment on above: Performed By: #### L [id number] #### [facility] ([employer] [facility]) [address] [place] [address] CONSULTon 06-29-2023 CONSULT - Attestation signed by [...] tobacco use comes as a transfer from [facility] due to suspected NSTEMI. Patient [...] Her troponins were elevated at 557 at [facility] and recheck here shows 0.07. [...] Interval 150 (more content not included)... Normal [facility] HPon 06-29-2023 HP Interval Pre-Procedural H&P Reason for Consult: NSTEMI HPI: Vivian Vann is a 63 y.o. female with PMH of CAD s/p PCI to LAD (October 2021), HTN, HLD, COPD, tobacco use comes as a transfer from [facility] due to suspected NSTEMI. Patient [...] Her troponins were elevated at 557 at [facility] and recheck here shows 0.07. [...] QT Interval 476 QTC CALCULATION(BAZETT) 479 P [place]ande 68 R-Orogrande 25 T Wave O[place]ande 128 Impression Normal sinus rhythm Right atrial [...] deformity. End (more content not included)... Normal [facility] LACTIC ACID WITH 4 HOUR REFL EXon 06-29-2023 LACTATE (MMOL/L) IN SER/PLAS 3.6 mmol/L Critically high 0.5-2.2 [facility] Comment on above: Result Comment: M-NM EVIOUS CRITICAL RESULT Previous result verified on 06/29/2023 1809 on specimen/case [id number] called with component Lactate blood venous for procedure Lactic acid with 4 hour reflex with value 2.7 mmol/L. Performed By: #### L [id number] #### [facility] (BEAKER) [address] [place] [address] LACTATE (MMOL/L) IN SER/PLAS 2.7 mmol/L Critically high 0.5-2.2 [facility] Comment on above: Performed By: #### L [id number] #### [facility] (BEAKER) [address] [place] [address] LACTATE (MMOL/L) IN SER/PLAS 2.5 mmol/L High 0.5-2.2 [facility] Comment on above: Performed By: #### L [id number] ####[facility] (BEAKER)[address] [place] [address] MAGNESIUMon 02-16-2024 Magnesium [Mass/Vol] 2.1 mg/dL Normal 1.9-2.7 [facility] Comment on above: Performed By: #### L [id number] ####[facility] ([employer] [facility])[address] [place] [address] Magnesium [Mass/Vol] 2.2 mg/dL Normal 1.9-2.7 [facility] Comment on above: Performed By: #### L [id number] #### [facility] ([employer] [facility] [address] [facility] [place] [address] Magnesium [Mass/Vol] 1.7 mg/dL Low 1.9-2.7 [facility] Comment on above: Performed By: #### L [id number] #### [facility] ([employer] [facility] [facility] [address] [facility] [place] [address] NURSNOTEon 06-29-2023 NURSNOTE Notified [place] [facility]ist critical lactate 2.7 no orders received said she would recheck lactate in 4 hrs Normal [facility] PHOSPHORUSon 06-29-2023 Magnesium [Mass/Vol] 3.5 mg/dL Normal 2.5-5.0 [facility] Comment on above: Performed By: #### L [id number] #### [facility] ([employer] [facility] [facility] [address] [facility] [place] [address] PROTIME-INRon 06-29-2023 INR IN PPP BY COAGULATION ASSAY 0.98 Normal 0.90-1.10 [facility] Comment on above: Result Comment: [...] CHEST 1995;[id number]. Performed By: #### L [id number] ####[facility] ([employer] [facility] [employer] [facility])[address] [place] [address] PROTHROMBIN TIME (PT) IN PPP BY COAGULATION ASSAY 13.0 Seconds Normal 12.3-14.8 [facility] Comment on above: Performed By: #### L [id number] ####[facility] ([employer] [facility])[address] [place] [address] TROPONIN Ion 06-29-2023 Troponin I.cardiac [Mass/Vol] 0.06 ng/mL High 0.00-0.04 [facility] Comment on above: Performed By: #### L [id number] #### [facility] ([employer] [facility] [employer] [facility]) [address] [place] [address] Troponin I.cardiac [Mass/Vol] 0.07 ng/mL High 0.00-0.04 [facility] Comment on above: Performed By: #### L [id number] ####[facility] ([employer] [facility])[address] [place] [address] Troponin I.cardiac [Mass/Vol] 0.07 ng/mL High 0.00-0.04 [facility] Comment on above: Performed By: #### L [id number] #### [facility] ([employer] [facility]) [address] [place] [address] CBC W MANUAL DIFFon 08-25-19 23 ANISOCYTOSIS 1+ Normal [facility] Comment on above: Performed By: ###Daniela PONCE ####[facility] [address] [place], [place] [address]Cl. Nahed Yañez ATYPICAL LYMPH # Normal [facility] Comment on above: Performed By: ###Daniela PONCE ####[facility] [address] [place] [id number]. Nahed Yañez ATYPICAL LYMPH % Normal [facility] Comment on above: Performed By: #### C BCMAN ####[facility] [address] [place] [address]Dr. Yilan Yañez BAND # 0.2 103/ul Normal 0.0-0.3 [facility] Comment on above: Performed By: #### C BCMAN ####[facility] [address] [place] [address]Dr. Yilan Yañez BAND % 1 % Normal 0-5 [facility] Comment on above: Performed By: #### C BCISAIAH ####[facility] [address] [place], [place] [address]Dr. Nahed Yañez BASOM # 0.00 103/ul Normal 0.00-0.10 [facility] Comment on above: Performed By: #### C ROSARIO ####[facility] [address] [place], [place] [address]Dr. Nahed Yañez BASOM % 0.0 % Critically low 0.2-2.0 [facility] Comment on above: Performed By: #### C ROSARIO ####[facility] [address] [place], [place] [address]Dr. Nahed Yañez BLAST # Normal [facility] Comment on above: Performed By: #### C ROSARIO ####[facility] [address] [place], [place] [address]Dr. Nahed Yañez BLAST % Normal [facility] Comment on above: Performed By: #### C BCISAIAH ####[facility] [address] [place] [address]Dr. Nahed Yañez CORRECTED WBC Normal 4.0-11.0 [facility] Comment on above: Performed By: #### C ROSARIO ####[facility] [address] [place], [place] [address]Dr. Nahed Yañez EOS # 0.00 103/ul Normal 0.00-0.70 [facility] Comment on above: Performed By: #### C BCISAIAH ####[facility] [address] [place], [place] [address]Ia. Nahed Yañez EOS% 0.0 % Critically low 0.9-7.0 [facility] Comment on above: Performed By: #### C ROSARIO ####[facility] [address] [place] [id number]. Nahed Yañez HCT 33.9 % Critically low 36.0-48.0 [facility] Comment on above: Performed By: #### C ROSARIO ####[facility] [address] [place], [place] [address]Ce. Nahed Yañez HGB 10.8 g/dl Critically low 12.0-16.0 [facility] Comment on above: Performed By: #### C ROSARIO ####[facility] [address] [place] [id number]. Nahed Yañez HYPOCHROMASIA SLIGHT Normal [facility] Comment on above: Performed By: #### C ROSARIO ####[facility] [address] [place] [id number]. Nahed Yañez LYMPHM # 2.59 103/ul Normal 1.20-3.80 [facility] Comment on above: Performed By: #### Isabell PONCE ####[facility] [address] [place] [id number]. Nahed Yañez LYMPHM% 16.0 % Critically low 20.5-60.0 [facility] Comment on above: Performed By: #### Isabell PONCE ####[facility] [address] [place] [id number]. Nahed Yañez MCH 28.5 pg Normal 26.7-34.0 [facility] Comment on above: Performed By: #### C ROSARIO ####[facility] [address] [place] [id number]. Nahed Yañez MCHC 31.9 g/dl Normal 29.9-35.2 [facility] Comment on above: Performed By: #### C ROSARIO ####[facility] Tyhvihphqg5231 [place] [phone]. Nahed Yañez MCV 89.4 fL Normal 81.0-99.0 [facility] Comment on above: Performed By: #### C ROSARIO ####[facility] Nmpmygrvmf6531 [place] [phone]. Nahed Yañez METAMYELOCYTE # Normal [facility] Comment on above: Performed By: #### C ROSARIO ####[facility] Brvrrxdpst3926 [place] [phone]. Nahed Yañez METAMYELOCYTE % Normal [facility] Comment on above: Performed By: #### C ROSARIO ####[facility] Hsydvmohim8653 [place] [phone]. Nahed Yañez MONOM# 1.30 103/ul Critically high 0.30-0.80 [facility] Comment on above: Performed By: #### C ROSARIO ####[facility] Ezkwazmwep4419 [place] [phone]. Nahed Yañez MONOM% 8.0 % Normal 1.7-12.0 [facility] Comment on above: Performed By: #### C ROSARIO ####[facility] Ubuggujlag1161 [place] [phone]. Nahed Otilio MPV 9.8 fL Normal 9.5-13.5 [facility] Comment on above: Performed By: #### Isabell PONCE ####[facility] Vnpvppxdkb7828 [place] [phone]. Nahed Yañez MYELOCYTE # Normal [facility] Comment on above: Performed By: #### Isabell PONCE ####[facility] Jzscugueef2444 [place] [phone]. Nahed Yañez MYELOCYTE % Normal [facility] Comment on above: Performed By: #### Isabell PONCE ####[facility] Qbqxkrdxgf[address] [place], [place] [address]Dr. Nahed Yañez NRBC Normal [facility] Comment on above: Performed By: #### Isabell PONCE ####[facility] Ixppknrdhz5413 [place] [phone]. Rosemarieashley Otilio PLT 302 103/ul Normal 150-450 [facility] Comment on above: Performed By: #### C ROSARIO ####[facility] Tgrihffmcj4410 [place], [place] [address]Ya. Nahed Yañez RBC 3.79 106/ul Critically low 4.20-5.[address] [facility] Comment on above: Performed By: #### C ROSARIO ####[facility] Hoyvgqiplw0493 [place], [place] [address]Ac. Nahed Yañez RDW 15.3 % Critically high 11.0-15.[address] [facility] Comment on above: Performed By: #### C ROSARIO ####[facility] Jwdvmommbg0628 [place], [place] [address]Gg. Nahed Yañez SEG # 12.15 103/ul Critically high 1.40-6.50 [facility] Comment on above: Performed By: #### C ROSARIO ####[facility] Vmhxdgnuvr0577 [place], [place] [address]Yg. Nahed Yañez SEG % 75.0 % Normal 43.0-75.0 [facility] Comment on above: Performed By: #### C ROSARIO ####[facility] Eqilubyjlr3404 [place], [place] [address]Eq. Nahed Otilio WBC 16.2 103/ul Critically high 4.0-11.0 [facility] Comment on above: Performed By: #### C ROSARIO ####[facility] Wkzyxanvrk6828 [place], [place] [address]OlShaun Yañez POINT OF CARE GLUCOSEon 08-12 Glucose [Mass/Vol] 221 mg/dL Critically high 74-106 [facility] Comment on above: Performed By: #### P OCGLUC ####[facility] Ncdceymttk0819 [place], [place] [address]WsShaun Yañez PROF 14(COMP METB)on 023 Albumin [Mass/Vol] 2.2 g/dL Critically low 3.4-5.0 [facility] Comment on above: Performed By: #### C JUDY MULLER ####[facility] Frwfvltwyz2099 [place] [phone] Yañez Albumin/Globulin [Mass ratio] 0.6 {ratio} Normal [facility] Comment on above: Performed By: #### C RENZO, JUDY ####[facility] Cmpcfglqez[address] [place], [place] [address]Dr. Nahed Yañez ALP [Catalytic activity/Vol] 87 U/L Normal 46-116 [facility] Comment on above: Performed By: #### C RENZO, JUDY ####[facility] Xrjjhdrtwo50[address] [place], [place] [address]Dr. Nahed Yañez ALT [Catalytic activity/Vol] 17 U/L Normal 14-59 [facility] Comment on above: Performed By: #### C RENZO, JUDY ####[facility] Kywckqpnui7125[address] [place], [place] [address]Dr. Nahed Yañez Anion gap [Moles/Vol] 9.4 mmol/L Normal [facility] Comment on above: Performed By: #### C RENZO, JUDY ####[facility] Dpyyvpausm36[address] [place], [place] [address]Dr. Nahed Yañez AST [Catalytic activity/Vol] 13 U/L Critically low 15-37 [facility] Comment on above: Performed By: #### C RENZO, JUDY ####[facility] Lstirozirq[address] [place], [place] [address]Dr. Nahed Yañez Bilirubin [Mass/Vol] 0.2 mg/dL Normal 0.2-1.0 [facility] Comment on above: Performed By: #### C RENZO, JUDY ####[facility] Nsbudzbwfa417[address] [place], [place] [address]Dr. Nahed Otilio Calcium [Mass/Vol] 9.1 mg/dL Normal 8.5-10.1 [facility] Comment on above: Performed By: #### C RENZO, JUDY ####[facility] Hooqwwaqaq5[address] [place], [place] [address]Dr. Nahed Otilio Chloride [Moles/Vol] 103 mmol/L Normal 98-107 [facility] Comment on above: Performed By: #### C RENZO, JUDY ####[facility] Btilqlmvry624[address] [place], [place] [address]Dr. Nahed Yañez CO2 [Moles/Vol] 29.1 mmol/L Normal 21.0-32.0 [facility] Comment on above: Performed By: #### C RENZO, JUDY ####[facility] Vxaeqymfpe8647 [place] [address]Dr. Nahed Yañez Creatinine [Mass/Vol] 1.05 mg/dL Critically high 0.55-1.02 [facility] Comment on above: Performed By: #### C RENZO, JUDY ####[facility] Zebuzitlkp0228 [place] [address]Dr. Nahed Yañez EGFR-AF PUERTO RICAN >60 Normal >=60 [facility] Comment on above: Performed By: #### C RENZO, JUDY ####[facility] Pgolvmtbse7374 [place] [address]Dr. Nahed Yañez EGFR-NON AF PUERTO RICAN 53 mL/min/1.73m2 Critically low >=60 [facility] Comment on above: Performed By: #### C RENZO, JUDY ####[facility] Oawdhmkqrq9[address] [place], [place] [address]Dr. Nahed Yañez Globulin (S) [Mass/Vol] 3.5 g/dL Normal [facility] Comment on above: Performed By: #### C RENZO, JUDY ####[facility] Ccoeukhkre2475 [place] [address]Dr. Nahed Yañez Glucose [Mass/Vol] 121 mg/dL Critically high 74-106 [facility] Comment on above: Performed By: #### C RENZO, JUDY ####[facility] Imuxzowlaj9250 [place] [address]Dr. Nahed Yañez Potassium [Moles/Vol] 4.5 mmol/L Normal 3.5-5.1 [facility] Comment on above: Performed By: #### C RENZO, JUDY ####[facility] Ykovjbvqyp0989 [place] [address]Dr. Nahed Yañez Protein [Mass/Vol] 5.7 g/dL Critically low 6.4-8.2 Th [facility] Comment on above: Performed By: #### C RENZO, JUDY ####[facility] Ilipqhdche1935 [place] [address]Dr. Nahed Yañez Sodium [Moles/Vol] 137 mmol/L Normal 136-145 [facility] Comment on above: Performed By: #### C RENZO, JUDY ####[facility] Xynkkskskr2756 [place] [address]Dr. Nahed Yañez Urea nitrogen [Mass/Vol] 24.0 mg/dL Critically high 7.0-18.0 [facility] Comment on above: Performed By: #### C RENZO, JUDY ####[facility] Nkvksedhtl18[address] [place], [place] [address]Dr. Nahed Yañez Urea nitrogen/Creatinine [Mass ratio] 22.9 mg/mg Normal [facility] Comment on above: Performed By: #### C RENZO, JUDY ####[facility] Ffcntnocnc[address] [place], [place] [address]Dr. Nahed Yañez THEOPHYLLINEon 08-24-2022 THEOPHYLLINE 18.2 ug/mL Normal 10.0-20.0 [facility] Comment on above: Performed By: #### C RENZO, JUDY ####[facility] Waptldxwwv94[address] [place], [place] [address]Dr. Nahed Yañez CBC W MANUAL DIFFon 08-24-19 23 ATYPICAL LYMPH # 0.20 103/ul Normal [facility] Comment on above: Performed By: #### C ROSARIO ####[facility] Ijhnejcegp37[address] [place], [place] [address]Dr. Nahed Otilio ATYPICAL LYMPH % 1 % Normal [facility] Comment on above: Performed By: #### C ROSARIO ####[facility] Gulzqvlzqy56[address] [place], [place] [address]Dr. Nahed Yañez BAND # 0.0 103/ul Normal 0.0-0.3 [facility] Comment on above: Performed By: #### C ROSARIO ####[facility] Auhsgyqlap[address] [place], [place] [address]Dr. Nahed Yañez BAND % 0 % Normal 0-5 [facility] Comment on above: Performed By: #### C ROSARIO ####[facility] Siitrowyqs1442 [place] [phone]. Nahed Yañez BASOM # 0.00 103/ul Normal 0.00-0.10 [facility] Comment on above: Performed By: #### C BCMAN ####[facility] Riimnvjsxm0874 [place] [address]Dr. Nahed Yañez BASOM % 0.0 % Critically low 0.2-2.0 [facility] Comment on above: Performed By: #### C BCMAN ####[facility] Blqaceqige3141 [place] [phone]. Nahed Yañez BLAST # Normal [facility] Comment on above: Performed By: #### C BCISAIAH ####[facility] Mznleyieda5652 [place] [address]Dr. Nahed Yañez BLAST % Normal [facility] Comment on above: Performed By: #### C BCISAIAH ####[facility] Qgztrsmmhm9[address] [place], [place] [address]Dr. Nahed Yañez CORRECTED WBC Normal 4.0-11.0 [facility] Comment on above: Performed By: #### C BCISAIAH ####[facility] Zpllueotzt2247 [place] [address]Dr. Nahed Yañez EOS # 0.00 103/ul Normal 0.00-0.70 [facility] Comment on above: Performed By: #### C BCISAIAH ####[facility] Ievpojxpba4379 [place] [address]Dr. Nahed Yañez EOS% 0.0 % Critically low 0.9-7.0 [facility] Comment on above: Performed By: #### C BCMAN ####[facility] Aymtmrztvz9159 [place] [phone]. Nahed Yañez HCT 33.5 % Critically low 36.0-48.0 [facility] Comment on above: Performed By: #### C BCMAN ####[facility] Ieoiyexdjh8589 [place] [address]Dr. Nahed Yañez HGB 10.7 g/dl Critically low 12.0-16.0 [facility] Comment on above: Performed By: #### C ROSARIO ####[facility] Zodgdssxqo1532 [place] [phone]. Nahed Yañez LYMPHM # 1.39 103/ul Normal 1.20-3.80 [facility] Comment on above: Performed By: #### C ROSARIO ####[facility] Uzojwnygxc4460 [place] [phone]. Nahed Yañez LYMPHM% 7.0 % Critically low 20.5-60.0 [facility] Comment on above: Performed By: #### C ROSARIO ####[facility] Twlnfairnr4944 [place] [address]Dr. Nahed Yañez MCH 28.5 pg Normal 26.7-34.0 [facility] Comment on above: Performed By: #### C ROSARIO ####[facility] Orbmfkohak5816 [place] [address]Dr. Nahed Yañez MCHC 31.9 g/dl Normal 29.9-35.2 [facility] Comment on above: Performed By: #### C ROSARIO ####[facility] Yrukousqzm8646 [place] [address]Dr. Nahed Yañez MCV 89.1 fL Normal 81.0-99.0 [facility] Comment on above: Performed By: #### C ROSARIO ####[facility] Vexdvemnzn0915 [place] [address]Dr. Nahed Yañez METAMYELOCYTE # Normal [facility] Comment on above: Performed By: #### C ROSARIO ####[facility] Nihjhmtqye9190 [place] [phone]. Nahed Yañez METAMYELOCYTE % Normal [facility] Comment on above: Performed By: #### C ROSARIO ####[facility] Pfbpuzumry9615 [place] [address]Dr. Nahed Yañez MONOM# 0.40 103/ul Normal 0.30-0.80 [facility] Comment on above: Performed By: #### C ROSARIO ####[facility] Jpaihjfkeo0839 [place] [phone]. Nahed Yañez MONOM% 2.0 % Normal 1.7-12.0 [facility] Comment on above: Performed By: #### C ROSARIO ####[facility] Zutpcbfkpq5920 [place] [phone]. Nahed Yañez MPV 10.0 fL Normal 9.5-13.5 [facility] Comment on above: Performed By: #### C ROSARIO ####[facility] Yszibzlblc6253 [place] [address]Dr. Nahed Yañez MYELOCYTE # Normal [facility] Comment on above: Performed By: #### C ROSARIO ####[facility] Kaygxulmik3842 [place] [phone]. Nahed Yañez MYELOCYTE % Normal [facility] Comment on above: Performed By: #### C ROSARIO ####[facility] Jzezqmtnke9534 [place] [address]Dr. Nahed Yañez NRBC Normal [facility] Comment on above: Performed By: #### C ROSARIO ####[facility] Jeiofspbgu5169 [place] [phone]. Nahed Yañez PLT 338 103/ul Normal 150-450 [facility] Comment on above: Performed By: #### C ROSARIO ####[facility] Fklhundoec7387 [place] [phone]. Nahed Yañez RBC 3.76 106/ul Critically low 4.20-5.40 [facility] Comment on above: Performed By: #### C ROSARIO ####[facility] Ftdeyjyoae4676 [place] [phone]. Nahed Yañez RDW 15.3 % Critically high 11.0-15.0 [facility] Comment on above: Performed By: #### C ROSARIO ####[facility] Heobveqhzd9247 [place] [phone]. Nahed Yañez SEG # 17.91 103/ul Critically high 1.40-6.50 [facility] Comment on above: Performed By: #### C ROSARIO ####[facility] Wvatflbjxz9529 [place] [phone]. Nahed Yañez SEG % 90.0 % Critically high 43.0-75.[address] [facility] Comment on above: Performed By: #### C BCMAN ####[facility] Nsixsxetnf6170 [place] [phone]. Nahed Yañez WBC 19.9 103/ul Critically high 4.0-11.0 [facility] Comment on above: Performed By: #### C BCMAN ####[facility] Wnjrmzmmky5545 [place] [address]Dr. Nahed Otilio POINT OF CARE GLUCOSEon 08-12 Glucose [Mass/Vol] 200 mg/dL Critically high 74-106 [facility] Comment on above: Performed By: #### P OCGLUC ####[facility] Uulanviqux4329 [place] [address]Dr. Nahed Yañez Glucose [Mass/Vol] 131 mg/dL Critically high 74-106 [facility] Comment on above: Performed By: #### P OCGLUC ####[facility] Lthubsrkuk8979 [place] [address]Dr. Nahed Yañez Glucose [Mass/Vol] 176 mg/dL Critically high 74-106 [facility] Comment on above: Performed By: #### P OCGLUC ####[facility] Jmtupbcxtl0700 [place] [address]Dr. Rosemarieashley Yañez PROF 14(COMP METB)on 023 Albumin [Mass/Vol] 2.2 g/dL Critically low 3.4-5.[address] [facility] Comment on above: Performed By: #### T RAFITA CMP ####[facility] Delvqxjall7127 [place] [address]Dr. Nahed Otilio Albumin/Globulin [Mass ratio] 0.6 {ratio} Normal [facility] Comment on above: Performed By: #### Nydia ELLER, CMP ####[facility] Zttuqenaky4121 [place] [address]Dr. Nahed Otilio ALP [Catalytic activity/Vol] 101 U/L Normal 46-116 [facility] Comment on above: Performed By: #### Nydia ELLER CMP ####[facility] Dkrczpzroo5557 [place] [phone]. Nahed Yañez ALT [Catalytic activity/Vol] 19 U/L Normal 14-59 [facility] Comment on above: Performed By: #### Nydia ELLER, CMP ####[facility] Grdlcuxwwd8716 [place] [address]Dr. Nahed Yañez Anion gap [Moles/Vol] 12.0 mmol/L Normal [facility] Comment on above: Performed By: #### Nydia ELLER CMP ####[facility] Fruklcchso0759 [place] [address]Dr. Nahed Yañez AST [Catalytic activity/Vol] 14 U/L Critically low 15-37 [facility] Comment on above: Performed By: #### Nydia ELLER CMP ####[facility] Tsnzlctbxs89[address] [place], [place] [address]Dr. Nahed Yañez Bilirubin [Mass/Vol] 0.2 mg/dL Normal 0.2-1.0 [facility] Comment on above: Performed By: #### Nydia ELLER CMP ####[facility] Shhkusyuou6[address] [place], [place] [address]Dr. Nahed Otilio Calcium [Mass/Vol] 9.5 mg/dL Normal 8.5-10.1 [facility] Comment on above: Performed By: #### Nydia ELLER, CMP ####[facility] Nxubabutni7[address] [place], [place] [address]Dr. Nahed Yañez Chloride [Moles/Vol] 105 mmol/L Normal 98-107 [facility] Comment on above: Performed By: #### Nydia ELLER CMP ####[facility] Ddjrknzxjo755[address] [place], [place] [address]Dr. Nahed Yañez CO2 [Moles/Vol] 27.9 mmol/L Normal 21.0-32.0 [facility] Comment on above: Performed By: #### Nydia ELLER, CMP ####[facility] Cntbqibqkw096[address] [place], [place] [address]Dr. Nahed Yañez Creatinine [Mass/Vol] 1.08 mg/dL Critically high 0.55-1.02 [facility] Comment on above: Performed By: #### Nydia ELLER, CMP ####[facility] Chovsntvux1889 [place] [address]Dr. Rosemarieashley Otilio EGFR-AF PUERTO RICAN >60 Normal >=60 [facility] Comment on above: Performed By: #### Nydia ELLER CMP ####[facility] Opcgeqzyvz7392 [place] [address]Dr. Nahed Yañez EGFR-NON AF PUERTO RICAN 52 mL/min/1.73m2 Critically low >=60 [facility] Comment on above: Performed By: #### Nydia ELLER CMP ####[facility] Fuvhcojift440[address] [place], [place] [address]Dr. Nahed Yañez Globulin (S) [Mass/Vol] 3.7 g/dL Normal [facility] Comment on above: Performed By: #### Nydia ELLER CMP ####[facility] Gdddmonduo196[address] [place], [place] [address]Dr. Nahed Yañez Glucose [Mass/Vol] 182 mg/dL Critically high 74-106 [facility] Comment on above: Performed By: #### Nydia ELLER CMP ####[facility] Eblmxglxzi5098[address] [place], [place] [address]Dr. Nahed Yañez Potassium [Moles/Vol] 3.9 mmol/L Normal 3.5-5.1 [facility] Comment on above: Performed By: #### Nydia ELLER CMP ####[facility] Zpcpardims1908[address] [place], [place] [address]Dr. Nahed Yañez Protein [Mass/Vol] 5.9 g/dL Critically low 6.4-8.2 [facility] Comment on above: Performed By: #### Nydia ELLER CMP ####[facility] Sqapfyelnn[address] [place], [place] [address]Dr. Nahed Yañez Sodium [Moles/Vol] 141 mmol/L Normal 136-145 [facility] Comment on above: Performed By: #### Nydia ELLER CMP ####[facility] Ysvoetveip1223[address] [place], [place] [address]Dr. Nahed Yañez Urea nitrogen [Mass/Vol] 20.0 mg/dL Critically high 7.0-18.0 [facility] Comment on above: Performed By: #### Nydia ELLER, CMP ####[facility] Bkxhrgrpfg77[address] [place], [place] [address]Dr. Nahed Yañez Urea nitrogen/Creatinine [Mass ratio] 18.5 mg/mg Normal [facility] Comment on above: Performed By: #### Nydia ELLER, CMP ####[facility] Osjvgmubpz7[address] [place], [place] [address]Dr. Nahed Yañez THEOPHYLLINEon 08-23-2022 THEOPHYLLINE 22.9 ug/mL Critically high 10.0-20.0 [facility] Comment on above: Performed By: #### Nydia ELLER CMP ####[facility] Pdaauiiezt6132[address] [place], [place] [address]Dr. Nahed Yañez CBC AUTO DIFFon 08-22-2022 BASO # 0.0 103/ul Normal 0.0-0.1 [facility] Comment on above: Performed By: #### C BC ####[facility] Xinkcclnda[address] [place], [place] [address]Dr. Nahed Yañez Basophils/100 WBC (Bld) 0.1 % Critically low 0.2-2.0 [facility] Comment on above: Performed By: #### C BC ####[facility] Uxienmeljm33[address] [place], [place] [address]Dr. Nahed Yañez EO # 0.0 103/ul Normal 0.0-0.7 [facility] Comment on above: Performed By: #### C BC ####[facility] Wjabpnspqa7743[address] [place], [place] [address]Dr. Nahed Yañez Eosinophils/100 WBC (Bld) 0.0 % Critically low 0.9-7.0 [facility] Comment on above: Performed By: #### C BC ####[facility] Gkqwnnajcd660[address] [place], [place] [address]Dr. Nahed Yañez Erythrocyte distribution width (RBC) [Ratio] 15.1 % Critically high 11.0-15.0 [facility] Comment on above: Performed By: #### C BC ####[facility] Nmqduwjxfb4889 [place] [address]Dr. Nahed Yañez Hematocrit (Bld) [Volume fraction] 31.4 % Critically low 36.0-48.0 [facility] Comment on above: Performed By: #### C BC ####[facility] Kqtvuvxtfq8179 [place] [address]Dr. Nahde Yañez Hemoglobin (Bld) [Mass/Vol] 10.2 g/dL Critically low 12.0-16.0 [facility] Comment on above: Performed By: #### C BC ####[facility] Ayydhaqkfx7834[address] [place], [place] [address]Dr. Nahed Yañez IG # 0.08 10e3/ul Critically high 0.00-0.03 [facility] Comment on above: Performed By: #### C BC ####[facility] Ppbvndribv79[address] [place], [place] [address]DrShaun Yañez IG % 0.6 % Critically high 0.0-0.[address] [facility] Comment on above: Performed By: #### C BC ####[facility] Fslxdzoulb8[address] [place], [place] [address]DrShaun Nahed Otilio LYMPH # 0.9 103/ul Critically low 1.2-3.8 [facility] Comment on above: Performed By: #### C BC ####[facility] Pzgyaxlqqk8430 [place] [address]DrShaun Nahed Otilio Lymphocytes/100 WBC (Bld) 6.1 % Critically low 20.5-60.0 [facility] Comment on above: Performed By: #### C BC ####[facility] Ozbygskodp6692 [place] [address]DrShaun Rosemarieashley Yañez MANUAL DIFF REQ NO Normal [facility] Comment on above: Performed By: #### C BC ####[facility] Iwvpxpflti[address] [place], [place] [address]DrShaun Rosemarieashley Yañez MCH (RBC) [Entitic mass] 28.3 pg Normal 26.7-34.0 [facility] Comment on above: Performed By: #### C BC ####[facility] Fqteojmxlw2287 [place] [address]Dr. Nahed Otilio MCHC (RBC) [Mass/Vol] 32.5 g/dL Normal 29.9-35.2 [facility] Comment on above: Performed By: #### C BC ####[facility] Neswnvfhrt9713 [place] [address]Dr. Nahed Yañez MCV (RBC) [Entitic vol] 87.0 fL Normal 81.0-99.0 [facility] Comment on above: Performed By: #### C BC ####[facility] Wzjbakemou14[address] [place], [place] [address]Dr. Nahed Yañez MONO # 0.7 103/ul Normal 0.3-0.8 [facility] Comment on above: Performed By: #### C BC ####[facility] Fctfbzobth[address] [place], [place] [address]Dr. Nahed Yañez Monocytes/100 WBC (Bld) 5.1 % Normal 1.7-12.0 [facility] Comment on above: Performed By: #### C BC ####[facility] Hfwxyamqgv[address] [place], [place] [address]Dr. Nahed Yañez NEUT # 12.2 103/ul Critically high 1.4-6.5 [facility] Comment on above: Performed By: #### C BC ####[facility] Usvuonmmak850[address] [place], [place] [address]Dr. Nahed Yañez Neutrophils/100 WBC (Bld) 88.1 % Critically high 43.0-75.0 [facility] Comment on above: Performed By: #### C BC ####[facility] Chjjwuhadz[address] [place], [place] [address]DrShaun Yañez Platelet mean volume (Bld) [Entitic vol] 10.2 fL Normal 9.5-13.5 [facility] Comment on above: Performed By: #### C BC ####[facility] Apmstpskes74[address] [place], [place] [address]Dr. Nahed Yañez PLT 271 103/ul Normal 150-450 [facility] Comment on above: Performed By: #### C BC ####[facility] Euzyiekkiy3564 [place] [address]Dr. Nahed Yañez RBC 3.61 106/ul Critically low 4.20-5.[address] [facility] Comment on above: Performed By: #### C BC ####[facility] Eyncnztdro3090 [place] [address]Dr. Nahed Otilio WBC 13.9 103/ul Critically high 4.0-11.0 [facility] Comment on above: Performed By: #### C BC ####[facility] Zjuhakqqyj1764 [place] [address]Dr. Nahed Otilio CULTURE URINEon 08-22-2022 CULTURE URINE Culture Observations : LIGHT GROWTH OF MIXED GENITAL MIGUEL. NO POTENTIAL PATHOGENS SEEN. Normal [facility] Comment on above: Performed By: #### U RCX ####[facility] Iwsuitsznu3621 [place] [address]DrShaun Yañez POINT OF CARE GLUCOSEon 08-12 Glucose [Mass/Vol] 252 mg/dL Critically high 74-106 [facility] Comment on above: Performed By: #### P OCGLUC ####[facility] Dmbjpuszns9377 [place] [address]Dr. Nahed Yañez Glucose [Mass/Vol] 293 mg/dL Critically high 74-106 [facility] Comment on above: Performed By: #### P OCGLUC ####[facility] Eotassoopi495[address] [place] [address]Dr. Nahed Yañez Glucose [Mass/Vol] 292 mg/dL Critically high 74-106 [facility] Comment on above: Performed By: #### P OCGLUC ####[facility] Cjboylvekf8973 [place] [address]Dr. Nahed Yañez PROF 14(COMP METB)on 023 Albumin [Mass/Vol] 2.1 g/dL Critically low 3.4-5.[address] [facility] Comment on above: Performed By: #### C MP ####[facility] Jtavuporhg[address] [place], [place] [address]Dr. Nahed Otilio Albumin/Globulin [Mass ratio] 0.5 {ratio} Normal [facility] Comment on above: Performed By: #### C MP ####[facility] Mydjactuvv6986 [place] [address]Dr. Nahed Otilio ALP [Catalytic activity/Vol] 92 U/L Normal 46-116 [facility] Comment on above: Performed By: #### C MP ####[facility] Xoulwwmnds7677 [place] [address]Dr. Nahed Otilio ALT [Catalytic activity/Vol] 19 U/L Normal 14-59 [facility] Comment on above: Performed By: #### C MP ####[facility] Jzqijyjiub[address] [place], [place] [address]Dr. Nahed Yañez Anion gap [Moles/Vol] 15.9 mmol/L Normal [facility] Comment on above: Performed By: #### C MP ####[facility] Wwodhsunfp[address] [place], [place] [address]Dr. Rosemarieashley Otilio AST [Catalytic activity/Vol] 8 U/L Critically low 15-37 [facility] Comment on above: Performed By: #### C MP ####[facility] Zkglqzxhpb[address] [place], [place] [address]Dr. Nahed aYñez Bilirubin [Mass/Vol] 0.3 mg/dL Normal 0.2-1.0 [facility] Comment on above: Performed By: #### C MP ####[facility] Xbuswckrbq92[address] [place], [place] [address]Dr. Nahed Yañez Calcium [Mass/Vol] 9.4 mg/dL Normal 8.5-10.1 [facility] Comment on above: Performed By: #### C MP ####[facility] Wbdodqudpn16[address] [place], [place] [address]Dr. Nahed Yañez Chloride [Moles/Vol] 101 mmol/L Normal 98-107 [facility] Comment on above: Performed By: #### C MP ####[facility] Itrrotuqjc3867[address] [place], [place] [address]Dr. Nahed Yañez CO2 [Moles/Vol] 22.5 mmol/L Normal 21.0-32.0 [facility] Comment on above: Performed By: #### C MP ####[facility] Ecymahtyii8759 [place] [address]Dr. Nahed Yañez Creatinine [Mass/Vol] 1.16 mg/dL Critically high 0.55-1.02 [facility] Comment on above: Performed By: #### C MP ####[facility] Xzwmbjaenw8366 [place] [address]Dr. Nahed Yañez EGFR-AF PUERTO RICAN 58 mL/min/1.73m2 Critically low >=60 [facility] Comment on above: Performed By: #### C MP ####[facility] Vkqmehaiwq[address] [place], [place] [address]Dr. Nahed Yañez EGFR-NON AF PUERTO RICAN 47 mL/min/1.73m2 Critically low >=60 [facility] Comment on above: Performed By: #### C MP ####[facility] Iexyeuvqvd2567[address] [place], [place] [address]Dr. Nahed Yañez Globulin (S) [Mass/Vol] 4.2 g/dL Normal [facility] Comment on above: Performed By: #### C MP ####[facility] Bxnpnhkjzr1994[address] [place], [place] [address]Dr. Nahed Yañez Glucose [Mass/Vol] 409 mg/dL Critically high 74-106 [facility] Comment on above: Performed By: #### C MP ####[facility] Vwahsbalzl[address]27[address] [place], [place] [address]Dr. Nahed Yañez Potassium [Moles/Vol] 3.4 mmol/L Critically low 3.5-5.1 [facility] Comment on above: Performed By: #### C MP ####[facility] Vzpupjxdvo[address] [place], [place] [address]Dr. Nahed Yañez Protein [Mass/Vol] 6.3 g/dL Critically low 6.4-8.2 [facility] Comment on above: Performed By: #### C MP ####[facility] Jqirucelcw18[address] [place], [place] [address]DrShaun Yañez Sodium [Moles/Vol] 136 mmol/L Normal 136-145 [facility] Comment on above: Performed By: #### C MP ####[facility] Rxtbseeepx4[address] [place], [place] [address]Dr. Nahed Yañez Urea nitrogen [Mass/Vol] 16.0 mg/dL Normal 7.0-18.0 [facility] Comment on above: Performed By: #### C MP ####[facility] Ldzmznwhcs7437[address] [place], [place] [address]Dr. Nahed Yañez Urea nitrogen/Creatinine [Mass ratio] 13.8 mg/mg Normal [facility] Comment on above: Performed By: #### C MP ####[facility] Trxygjgzof3714[address] [place], [place] [address]Dr. Nahed Yañez THEOPHYLLINEon 08-22-2022 THEOPHYLLINE 13.4 ug/mL Normal 10.0-20.0 [facility] Comment on above: Performed By: #### T RAFITA ####[facility] Kmddrufpyl7[address] [place], [place] [address]Dr. Nahed Yañez UA RANDOM W/MICROSCOPICon BACTERIA NONE SEEN Normal NONE SEEN [facility] Comment on above: Performed By: #### U AMIC ####[facility] Ejjkqnlduz[address] [place], [place] [address]Dr. Nahed Yañez Bilirubin Ql (U) Negative Normal NEGATIVE [facility] Comment on above: Performed By: #### U AMIC ####[facility] Afanxeydvx4215[address] [place], [place] [address]Dr. Nahed Yañez CAST NONE SEEN Normal NONE SEEN [facility] Comment on above: Performed By: #### U AMIC ####[facility] Mqjqzkeojo34[address] [place], [place] [address]Dr. Nahed Yañez Clarity (U) CLEAR Normal CLEAR [facility] Comment on above: Performed By: #### U AMIC ####[facility] Kzkffwzprt[address] [place], [place] [address]Dr. Nahed Yañez Color (U) LT. YELLOW Normal YELLOW [facility] Comment on above: Performed By: #### U AMIC ####[facility] Catfdwbnsd2358 [place] [address]Dr. Nahed Yañez Crystals LM Nom (Urine sed) NONE SEEN Normal NONE SEEN [facility] Comment on above: Performed By: #### U AMIC ####[facility] Poinvlpvel7893 [place] [address]Dr. Nahed Yañez Epithelial cells LM Ql (Urine sed) RARE Normal NONE SEEN /RARE [facility] Comment on above: Performed By: #### U AMIC ####[facility] Liudsaatmq6267 [place] [address]Dr. Nahed Yañez Glucose Ql (U) 100 mg/dl Abnormal NEGATIVE [facility] Comment on above: Performed By: #### U AMIC ####[facility] Lqooyltlld[address] [place], [place] [address]Dr. Nahed Yañez Hemoglobin Ql (U) Negative Normal NEGATIVE [facility] Comment on above: Performed By: #### U AMIC ####[facility] Kyasegnkbj006[address] [place], [place] [address]Dr. Nahed Yañez Ketones Ql (U) Negative Normal NEGATIVE [facility] Comment on above: Performed By: #### U AMIC ####[facility] Rqwsyzlsyh10[address] [place], [place] [address]Dr. Nahed Yañez LEUKOCYTES Negative Normal NEGATIVE [facility] Comment on above: Performed By: #### U AMIC ####[facility] Xqqydulgmo68[address] [place], [place] [address]Dr. Nahed Yañez MUCOUS NONE SEEN Normal NONE SEEN [facility] Comment on above: Performed By: #### U AMIC ####[facility] Huiaxqqsvq5401 [place] [address]Dr. Nahed Yañez Nitrite Ql (U) Negative Normal NEGATIVE [facility] Comment on above: Performed By: #### U AMIC ####[facility] Decnzeoidg1601 [place] [address]Dr. Nahed Yañez pH (U) 5.5 [pH] Normal 5-9 [facility] Comment on above: Performed By: #### U AMIC ####[facility] Bosuxflifm9423 [place] [address]Dr. Nahed Yañez RBC NONE SEEN Abnormal 0-2 [facility] Comment on above: Performed By: #### U AMIC ####[facility] Plmawcmtpk8215 [place] [address]Dr. Nahed Yañez SPEC GRAVITY 1.020 Normal 1.005-<=1.02 5 [facility] Comment on above: Performed By: #### U AMIC ####[facility] Dmydzfudgy6964 [place] [address]Dr. Nahed Yañez UA PROTEIN Negative Normal NEGATIVE/ TRACE [facility] Comment on above: Performed By: #### U AMIC ####[facility] Sdretyytlz[address] [place] [address]Dr. Nahed Yañez Urobilinogen Qn (U) 0.2 {Alem'U}/dL Normal 0.2 - 1. 0 [facility] Comment on above: Performed By: #### U AMIC ####[facility] Wltzrobczw[address] [place], [place] [address]Dr. Nahed Yañez WBC NONE SEEN Normal NONE SEEN [facility] Comment on above: Performed By: #### U AMIC ####[facility] Ihrzkoqoot7[address] [place], [place] [address]Dr. Nahed Yañez BLOOD GASES BTYon 08-21-2022 02 MODE ROOM AIR Normal [facility] Comment on above: Performed By: #### A BG ####[facility] Vvfltuwtre75[address] [place], [place] [address]Dr. Nahed Yañez ALLENS TEST Positive Normal [facility] Comment on above: Performed By: #### A BG ####[facility] Ogjmmrkodz6916[address] [place], [place] [address]Dr. Nahed Yañez Base excess Calc (Bld) [Moles/Vol] 3.2 mmol/L Critically high -2.0-2.0 [facility] Comment on above: Performed By: #### A BG ####[facility] Ihsagawkry2235[address] [place], [place] [address]Dr. Nahed Yañez BIPAP PRESSURE Normal [facility] Comment on above: Performed By: #### A BG ####[facility] Caerfcmlki9159 [place] [address]Dr. Nahed Yañez CPAP Normal [facility] Comment on above: Performed By: #### A BG ####[facility] Zdbruzrsjr1816 [place] [address]Dr. Nahed Yañez FIO2 Normal [facility] Comment on above: Performed By: #### A BG ####[facility] Krqmwddoeo9104 [place] [address]Dr. Nahed Yañez HCO3 (Bld) [Moles/Vol] 26.8 mmol/L Critically high 22.0-26 .0 [facility] Comment on above: Performed By: #### A BG ####[facility] Xozgjixetj[address] [place], [place] [address]Dr. Nahed Yañez LPM Normal [facility] Comment on above: Performed By: #### A BG ####[facility] Sehpvsqrrx[address] [place], [place] [address]Dr. Nahed Yañez MINUTE VOLUME Normal [facility] Comment on above: Performed By: #### A BG ####[facility] Dafzaqijnr[address] [place], [place] [address]Dr. Nahed Yañez Oxygen (Bld) [Partial pressure] 55.1 mm[Hg] Critically low 80.0-100.0 [facility] Comment on above: Performed By: #### A BG ####[facility] Aytlvmhbtv14[address] [place], [place] [address]Dr. Nahed Yañez Oxygen saturation in Blood 90.2 % Critically low 95.0-100.0 [facility] Comment on above: Performed By: #### A BG ####[facility] Zwlnpnsrru17[address] [place], [place] [address]Dr. Nahed Yañez PCO2 36.7 mmHg Normal 35.0-45.0 [facility] Comment on above: Performed By: #### A BG ####[facility] Wjrvcgffzh6[address] [place], [place] [address]Dr. Nahed Yañez PEEP Normal [facility] Comment on above: Performed By: #### A BG ####[facility] Wjhwlzsvug7226 [place] [address]Dr. Nahed Yañez pH (Bld) 7.472 [pH] Critically high 7.350-7.450 [facility] Comment on above: Performed By: #### A BG ####[facility] Ddysazkyzg6097 [place] [address]Dr. Nahed Yañez PIP Normal [facility] Comment on above: Performed By: #### A BG ####[facility] Edtunpvkmz4290 [place] [address]Dr. Nahed Yañez PS [facility] Comment on above: Performed By: #### A BG ####[facility] Ktfrzzbapr7[address] [place], [place] [address]Dr. Nahed Yañez PUNCTURE SITE LR Normal [facility] Comment on above: Performed By: #### A BG ####[facility] Mgpcmftcnk6[address] [place], [place] [address]Dr. Nahed Yañez RATE [facility] Comment on above: Performed By: #### A BG ####[facility] Fnmrybipmw5[address] [place], [place] [address]Dr. Nahed Yañez VENT MODE [facility] Comment on above: Performed By: #### A BG ####[facility] Jlhqmfamuk97[address] [place], [place] [address]Dr. Nahed Yañez [place] [facility] Comment on above: Performed By: #### A BG ####[facility] Rqawymsssl[address] [place], [place] [address]Dr. Nahed Yañez BNPon 08-21-2022 Natriuretic peptide B (Bld) [Mass/Vol] 131.0 pg/mL Normal <=900.0 [facility] Comment on above: Performed By: #### B TOOL HONING MACHINE SET UP OPERATOR ####[facility] Lqljgtwszx039[address] [place], [place] [address]Dr. Nahed Yañez CARDIAC FRANCISCO 3-6on 3 CK [Catalytic activity/Vol] 17 U/L Critically low 26-192 [facility] Comment on above: Performed By: #### C MREP ####[facility] Rjjwcydlll8407 [place] [id number]. Nahed Yañez CK.MB [Mass/Vol] ng/mL Normal <=3.60 [facility] Comment on above: Performed By: #### C MREP ####[facility] Zcitbdjbtn1861 [place] [phone]. Nahed Yañez HSTROP 25.1 pg/mL Normal 4.0-51.3 [facility] Comment on above: Result Comment: CUT- OFF POINTS HAVE BEEN ESTABLISHED BASED ON THE FOURTH UNIVERSAL DEFINITIONS OF MYOCARDIALINFARCTION. THE UPPER REFERENCE LIMIT (URL) OF TROPONIN, DEFINED THE 99TH PERCENTILE OFcTnI DISTRIBUTION IN A REFERENCE POPULATION, HAS BEEN CONFIRMED THE DECISION THRESHOLDFOR [place] DIAGNOSIS. Performed By: #### C MREP ####[facility] Dpsvvrjakf16[address] [place] [phone]. Nahed Yañez CARDIAC FRANCISCO ADMITon 023 CK [Catalytic activity/Vol] 39 U/L Normal 26-192 [facility] Comment on above: Performed By: #### B RENZO, CMADM ####[facility] Kssgmferyd1913 [place] [phone]. Nahed Yañez CK.MB [Mass/Vol] ng/mL Normal <=3.60 [facility] Comment on above: Performed By: #### B RENZO, CMADM ####[facility] Uaztwcehxl8118 [place] [phone]. Nahed Yañez HSTROP 24.4 pg/mL Normal 4.0-51.3 [facility] Comment on above: Result Comment: CUT- OFF POINTS HAVE BEEN ESTABLISHED BASED ON THE FOURTH UNIVERSAL DEFINITIONS OF MYOCARDIALINFARCTION. THE UPPER REFERENCE LIMIT (URL) OF TROPONIN, DEFINED THE 99TH PERCENTILE OFcTnI DISTRIBUTION IN A REFERENCE POPULATION, HAS BEEN CONFIRMED THE DECISION THRESHOLDFOR [place] DIAGNOSIS. Performed By: #### B RENZO, CMADM ####[facility] Gatbwixeci7[address] [place] [phone]. Nahed Yañez ANDRE 48 ng/mL Normal 9-82 [facility] Comment on above: Performed By: #### B RENZO, CMADM ####[facility] Ilqkbfpxul9949 [place] [address]Dr. Nahed Otilio CBC AUTO DIFFon 08-21-2022 BASO # 0.0 103/ul Normal 0.0-0.1 [facility] Comment on above: Performed By: #### C BC ####[facility] Aqxzekztxd[address] [place], [place] [address]Dr. Nahed Yañez Basophils/100 WBC (Bld) 0.2 % Normal 0.2-2.0 [facility] Comment on above: Performed By: #### C BC ####[facility] Zzzqvtmgys[address] [place], [place] [address]Dr. Nahed Yañez EO # 0.3 103/ul Normal 0.0-0.7 [facility] Comment on above: Performed By: #### C BC ####[facility] Olimqtjktt9[address] [place], [place] [address]Dr. Nahed Yañez Eosinophils/100 WBC (Bld) 1.5 % Normal 0.9-7.0 [facility] Comment on above: Performed By: #### C BC ####[facility] Cgpeyxnram5[address] [place], [place] [address]Dr. Nahed Yañez Erythrocyte distribution width (RBC) [Ratio] 15.0 % Normal 11.0-15.0 [facility] Comment on above: Performed By: #### C BC ####[facility] Skyjwajdtv[address] [place], [place] [address]Dr. Nahed Yañez Hematocrit (Bld) [Volume fraction] 41.4 % Normal 36.0-48.0 [facility] Comment on above: Performed By: #### C BC ####[facility] Lvwcydxcxi[address] [place], [place] [address]Dr. Nahed Yañez Hemoglobin (Bld) [Mass/Vol] 13.5 g/dL Normal 12.0-16.0 [facility] Comment on above: Performed By: #### C BC ####[facility] Arwvpxnstb[address] [place], [place] [address]Dr. Nahed Yañez IG # 0.18 10e3/ul Critically high 0.00-0.03 [facility] Comment on above: Performed By: #### C BC ####[facility] Xwoaxpximx9040 [place] [phone]. Rosemarieashley Yañez IG % 1.0 % Critically high 0.0-0.[address] [facility] Comment on above: Performed By: #### C BC ####[facility] Cbngvtemzs3730 [place] [phone]. Nahed Yañez LYMPH # 2.5 103/ul Normal 1.2-3.8 [facility] Comment on above: Performed By: #### C BC ####[facility] Fzvejscjnd9611 [place] [phone]. Nahed Yañez Lymphocytes/100 WBC (Bld) 14.0 % Critically low 20.5-60.0 [facility] Comment on above: Performed By: #### C BC ####[facility] Rqncgzrqlg4890 [place] [address]Dr. Nahed Yañez MANUAL DIFF REQ NO Normal [facility] Comment on above: Performed By: #### C BC ####[facility] Zmqrzsxdss5313 [place] [phone]. Nahed Otilio MCH (RBC) [Entitic mass] 28.5 pg Normal 26.7-34.0 [facility] Comment on above: Performed By: #### C BC ####[facility] Thrfaguebs2105 [place] [phone]. Nahed Yañez MCHC (RBC) [Mass/Vol] 32.6 g/dL Normal 29.9-35.2 [facility] Comment on above: Performed By: #### C BC ####[facility] Jrvntutetj9586 [place] [phone]. Nahed Yañez MCV (RBC) [Entitic vol] 87.3 fL Normal 81.0-99.0 [facility] Comment on above: Performed By: #### C BC ####[facility] Fcdylqxbej7283 [place] [phone]. Nahed Yañez MONO # 1.2 103/ul Critically high 0.3-0.8 [facility] Comment on above: Performed By: #### C BC ####[facility] Sgjdedaxbd7072 [place] [phone]. Nahed Yañez Monocytes/100 WBC (Bld) 6.8 % Normal 1.7-12.0 [facility] Comment on above: Performed By: #### C BC ####[facility] Noyirdergf5549 [place] [phone]. Nahed Yañez NEUT # 13.8 103/ul Critically high 1.4-6.5 [facility] Comment on above: Performed By: #### C BC ####[facility] Hbsublsnyy6419 [place] [phone]. Nahed Yañez Neutrophils/100 WBC (Bld) 76.5 % Critically high 43.0-75.0 [facility] Comment on above: Performed By: #### C BC ####[facility] Nxqzelwgrg6356 [place] [address]Dr. Nahed Yañez Platelet mean volume (Bld) [Entitic vol] 10.5 fL Normal 9.5-13.5 [facility] Comment on above: Performed By: #### C BC ####[facility] Qdvyldiasz[address] [place], [place] [address]Dr. Nahed Yañez PLT 319 103/ul Normal 150-450 [facility] Comment on above: Performed By: #### C BC ####[facility] Xflkpnpfkf0454 [place] [phone]. Nahed Yañez RBC 4.74 106/ul Normal 4.20-5.40 [facility] Comment on above: Performed By: #### C BC ####[facility] Tetgsbkski0315 [place] [phone]. Nahed Yañez WBC 18.0 103/ul Critically high 4.0-11.0 [facility] Comment on above: Performed By: #### C BC ####[facility] Ieciuhzav[address] [place], [place] [address]Dr. Nahed Yañez CULTURE BLOODon 08-21-2022 Microscopic examination of blood, culture Culture Observations: NO GROWTH AT 5 DAYS. Normal [facility] Comment on above: Performed By: #### B LDCX2 ####[facility] Qkbumhragq4999 [place] [address]Dr. Nahed Yañez Microscopic examination of blood, culture Culture Observations: NO GROWTH AT 5 DAYS. Normal [facility] Comment on above: Performed By: #### B LDCX1 ####[facility] Rxpxrnmxuy4213 [place] [address]Dr. aNhed Yañez Covid-19 PCR (CVDTB)on 08-12 SARS-CoV-2 (COVID-19) RNA MIRNA+probe Ql (Unsp spec) Not detected Normal NOT DETECTED [facility] Comment on above: Result [...] for this test is supported by the Sr Risk Management Consultant of Health and Human Service's declaration that [...] be used). Performed By: #### C VDTBH ####[facility] Tnyzrrszlj6861 [place] [address]Dr. Nahed Yañez LACTATE/LACTIC ACIDon 2022 Lactate [Moles/Vol] 1.1 mmol/L Normal 0.4-2.0 [facility] Comment on above: Performed By: #### L ACT ####[facility] Kzhxjvzmkc2476 [place] [phone]. Nahed Yañez Lactate [Moles/Vol] 2.4 mmol/L Critically high 0.4-2.0 [facility] Comment on above: Performed By: #### L ACT ####[facility] Grrzzwioas3044 [place] [address]Dr. Nahed Yañez POINT OF CARE GLUCOSEon 08-12 Glucose [Mass/Vol] 453 mg/dL Critically high 74-106 [facility] Comment on above: Performed By: #### P OCGLUC ####[facility] Aekkqmvrzq9249 [place] [address]Dr. Rosmearieashley Yañez Glucose [Mass/Vol] 358 mg/dL Critically high 74-106 [facility] Comment on above: Performed By: #### P OCGLUC ####[facility] Wwqstxnuyb1722 [place] [address]Dr. Nahed Yañez Glucose [Mass/Vol] 98 mg/dL Normal 74-106 [facility] Comment on above: Performed By: #### P OCGLUC ####[facility] Xasfguivzs0273 [place] [address]Dr. Nahed Yañez PROF CHEM 8 (BAS METB)on Anion gap [Moles/Vol] 14.7 mmol/L Normal [facility] Comment on above: Performed By: #### B MP, CMADM ####[facility] Birofwzyvd[address] [place], [place] [address]Dr. Nahed Yañez Calcium [Mass/Vol] 9.6 mg/dL Normal 8.5-10.1 [facility] Comment on above: Performed By: #### B MP, CMADM ####[facility] Oclnbtvkpf4788 [place] [address]Dr. Nahed Yañez Chloride [Moles/Vol] 95 mmol/L Critically low 98-107 [facility] Comment on above: Performed By: #### B MP, CMADM ####[facility] Mgmydurfqf[address] [place], [place] [address]Dr. Nahed Yañez CO2 [Moles/Vol] 25.2 mmol/L Normal 21.0-32.0 [facility] Comment on above: Performed By: #### B MP, CMADM ####[facility] Rgtucbzwxk9687 [place] [address]Dr. Nahed Yañez Creatinine [Mass/Vol] 1.15 mg/dL Critically high 0.55-1.02 [facility] Comment on above: Performed By: #### ERICK Ordonez MP ####[facility] Hgqmkgscjd2428 [place] [address]Dr. Nahed Yañez EGFR-AF PUERTO RICAN 58 mL/min/1.73m2 Critically low >=60 [facility] Comment on above: Performed By: #### ERICK Ordonez MP ####[facility] Dknftdlnog7154 [place] [address]Dr. Nahed Yañez EGFR-NON AF PUERTO RICAN 48 mL/min/1.73m2 Critically low >=60 [facility] Comment on above: Performed By: #### ERICK Ordonez MP ####[facility] Rcmcczgvou9066 [place] [address]Dr. Nahed Yañez Glucose [Mass/Vol] 191 mg/dL Critically high 74-106 [facility] Comment on above: Performed By: #### ERICK Ordonez MP ####[facility] Dxbaxexdsj1007 [place] [address]Dr. Nahed Yañez Potassium [Moles/Vol] 3.9 mmol/L Normal 3.5-5.1 [facility] Comment on above: Performed By: #### ERICK Ordonez MP ####[facility] Vdvnbttexl5419 [place] [address]Dr. Nahed Yañez Sodium [Moles/Vol] 131 mmol/L Critically low 136-145 Th [facility] Comment on above: Performed By: #### ERICK Ordonez MP ####[facility] [address] [place] [address]Dr. Nahed Yañez Urea nitrogen [Mass/Vol] 15.0 mg/dL Normal 7.0-18.0 [facility] Comment on above: Performed By: #### ERICK Ordonez MP ####[facility] [address] [place] [address] [address]Dr. Nahed Yañez Urea nitrogen/Creatinine [Mass ratio] 13.0 mg/mg Normal [facility] Comment on above: Performed By: #### ERICK Ordonez MP ####[facility] [address] [place], [place] [address]RiShaun Yañez XR CHEST 2 Von 08-21-2022 XR CHEST 2 V Normal [facility] Coding Summary.on 08-11-2022 Coding Summary. CD:[id number] W w+PGhlYWQ+OI1AIPEiI96 otERmuX0qJ7NZQAsXWoxn HSHUKInVJsLaaeIcVD8hx XNjZXJu IC8+MN2qGHMgVdekpEDqb 8H0qUM6R63brt3fRMosqW A6XKYpEfLdvrzku7czyFq 6IDcuNmluOyBt DTXcsE37CUZ8iX18To36a MLegHFnd9hduCx4FkQmDH EjAPP4rXbkJDdqr2HyCIC nZ43rdOQpe4J8 FXXwpNqbtODyVzZnyCB2t J1hFUhjupmfk6hbbqwmLi u0cs29cMTzh9B8kZV0X9U jlvC0ZLYpjMOe AqqmgGJIzN2grdlff9enj xycAnEuBJMfHQk8JCv5RA QqmTozRqFkHJ90CTJ5CFJ oqlUhG5EwQUZx zCbtVrK5e8Y1Xe4CD1CXG iyyT3XQMQGBEBwdeQU+PC 37mw72E4AbZnibUkq4WYY sWIP9oNX5yP1s DHPqHBnsa1J9gWZ6P8Jwg bLtba2so1lqANAoRNflK9 0eqFHle6T1PMCtkGE9AGW waXatCmNnoX52 Oyc+GCUxbYaca4ZdKxuph 0rso3cgiKz2DyicKCPgnu DzwWrcOMJ6b4KlOe9tKYB geYP3sMQ6hF2g YmUsXlN4MGnzR392HfOlj JNvSrtgH88lV9OesHI+PH BcRia2RGCgbDjsHL0sN5H hZGRpbmctbGVm bFsjOK6pKYWwttzkKBPrx V5bXZMzX3r7YxNnKqZ2BM niA6UtTHPsimxjKq63qG8 pBlOiOkN5UQjn F6HqkpQ8ONSqcFMjEAvyW VP0D76ol3B7DYVqKINiGI L9aLJ6qI6skTjlohlnvSK mdDsgdmVydGlj IDjfPUgbQ348HPIccYacL kNvZGluZyBEYXRlOiAgMD MvMzEvMjAyMzwvdGQ+PHR fEFX4zVqzSPXc bVKbRGzxRz3kbXrqfUmiR M4hXHLpceaxMZQksE7pAQ BrfCMuzYpwXO7cPYRwqoy xn642SuVjYWE9 OGPvhCAyU9OnlB8wGfZqG MHbSMCyY6YusKOgAMauJ7 17QEqoCpV9ITNlmmGvP1K sLWFsaWduOiB0 s4X7Fb0Uk0GrpgupH8Gyb JGtXeMvYlchAPm9D9FbUd wvdHI+FD43IFGiLI16YQg 1OIT0xWoyHKny TRNeM6NzwZ8cGzEaYROyH GRkOyc+PHRhYmxlIHdpZH RoPScxMDAlJyBzdHlsZT0 tTv8zDXKcQUZp hRjyjGOoCuPkm5lzKNMnJ VcrWC5yvTfvB8GchOF0NE Lqr3o9Ib32P89kF4FcdAX +MEVrfFK2sYU7 sZ3tFyZaWrC4MKcsE448T cDndYEyQayia2thg1gkdO p3EdT7NLXqsaWhaIypMBX 2j1JjZi45Y86r IHdpZHRoPSIxNSUiIHZhb Mnogv5icJ1cRi5+PGNvbC S1dTV1nQ2pVyIeIjJ6LVg nA402WlNzcBTg Iedby4gmr4marGi7GgXnY QMttgAlxUkjGXT5r2KiFh 17L5NvpLfbd2FzBse6lj6 7sSErr3U4xLA7 T7LfYKQaofsehULkaOklJ Z9dTWUaifdvSMSnkU6oTQ VzG0j8UhMeUjF7MHhzT9B gorL0VVIunOQy DTVzzQTKsF7jwnznz1wqi xuiPqNjGAJiHJm4RJs7XL SaxXyzWyAnOEO3OfD5WAE 7aCRbeW1nsOic yqgyvB0tDhi+LXJ3yBBeb TRNRN5lPtwbkMP+PHRkIH I5nEyuMMspECFzsR8jGTT zS7x1RaKdVcV2 EWffH0PzuoC7YKNfbTSwX HYcsSZTsA9agrfso2ndva nmSqRvDQNcHPg1FXe1FYS saWduOiBsZWZ0 BtU7YTT6iDUeaN4qjJsoq xtsvB0zYnx+QmlydGggRG M1LIt0L6EmCom0KMWnqVo nIS6cuGHfPYuv Nz2nzQufdAqyTI7aBPRoy lrud192UhUze3zgLEOvyJ LhBVwwBNG9K84ho1K3TDJ jGDPzDOC7vNJ2 iD4ewGweoykuhMOcbSikc zOdzFjuJVveHWoqW957VK TunRvxDoAqXIn8Z0TmPpk 1EGWtaPwmLI5q bMUxHWwuMa3yeJqfbQfwD I9oSSWtlflai176SwKcz5 jhNXRyjNIeNPopNLP5K36 wh5N5CTTcJOQj KMT9hDG1gF4oxHvtfptdf GVmdDsgdmVydGljYWwtYW lgK807RMMkpKnaGrHdfRk 1H4BzTfd3SUJt gHgtLQ2msOHdCNchLa0va GgapSluPV3fIYBgzxknj0 73MfNex0ylNAJrfSHnELy kACR7U55eh3K8 XYQiJAZgKUW1oYW8hL3mz GlnbjogbGVmdDsgdmVydG snMOpaAWkxM812AFLsmNc nPlBhdGllbnQg OThtUEn1V5CvDhveyVK+P F23IRFsJH04cKIfaOFei5 evkLi8JbZyBGBhGGR1dDw jJZbfb3AqWOCc Z32pjUPvg5F4HFQebYlnm FZdAbXmfBV1eB2eITutki bvp5yfhuwjJmrwe2szbv0 8qJ47G23fOLfa ZHRoPSIzMCUiIHZhbGlnb r1rcK7pVy1+TCLdbCO5bE X1lH0rPLGsZcY2YXxhU58 9InRvcCIvPjxj i0jgo3aqiOz5EhP0TZFnb xMuhUifRFK1p2YtNe89O4 9sIHdpZHRoPSIyMCUiIHZ moWikwt1vnA0g Ii8+WECppJC9sRN7qR0uZ wYpPxA1HPoiD004QcUgiL WxVajcN85yN7AgfUN+PHR gEnv1XALfwDmy XL7yuOOzXRixJx9zNFI7D dIeAzRqAJpnF7YuLNAtzn edutvnwQH8AFBiPZGgsT7 0Dj5mkClfJDQq jMATcL3bwyzbr2ydhurwO dLrWXLlLFy8HJy2IJAdvG umGwJaXKL6ErN4AIM1eXJ zxC2dpEwnurqs aW1uC9EfQAJinmidYo67n P7dMdUxKnV3VDfbIay+TU ZALM2XAOQGBARNAXH9N1H iOds5HJIjiWyc KL0voNXoJIcnEs3esXnau QbzOT6cMJUrsztaURGdaF 0oTKUfkHIwoMrrXS5pCYQ rrrsdc839UqNj VGP2HHFrgJTrQ5MplC5fZ iLeESLgNUJlU1EizOMrWM kiW710TYxaAnD7BSVdfpW hD2BhKHOznWfy CbD8s1Z2Rx5fSX7dTS0iJ EZlQE18IQ57pGUhp1V4cW L7F7DbLNZnjuxldsoagKY 1LQVzOLHulT60 rRJeWEjjBv2cf2F6c459Q YPwQCVwrQ05Rt4jkEonDH RjfUYSaZ2fblocs2cdmlh gIzAwMDAwMDt0 RGd2XQOsmUqiWjLiRZS9T nW2NQH5vWStlV2xtUnkfi xehJ5wFui+NjEgWWVhcnM 6I9XyMwx1XKFn pEgzDG4gzOBzWBfzFh4xw KfwwBetHG3rXYRzlxxnBH TwhN8oTDNaePGbwLawJI0 yCMJarggbb887 UnKuQEC5LTPiqETyN4Xys I0gQpPoSOExHNMaM9VclU EuXPsjM213CKorIoI1EFM upyZmN1JqICQs yOypMzR9i2L0Hc1XAX7du FY8U9CfOep6MQUbxNhpMO 4gzYAnAZsiZr8uoFbffHx aZY0bRZHlitxp STHuvJ3kFWXozZHaxYllH C5xHKTrudiaw820MgTdYP T0QORbqDByF9LstP9bXdU vNUQnAOZiS2Mn cFJwAMlnC799XXcxYwX3C RCplpXwM2PnQCKihShuHm R2s6B7Xu7KjQSfS8IdC7s 3W5KfIdjhzAM+ KO94PNUkCG99dNMpcHIah 2angQj8VqXaDIHqQGV1uD loNIdcc5NxWMVuB60ylQD yf1K5DLMzbSel nLPkXvEhmIO4pC5cDBnfb reos9nhfpcfJiwqh7bgmq 63oS01B10cONtlQHJkRNZ zMCUiIHZhbGln tj8xrZ2tLo6+TREgyEB4n PV3vY2bMuWtQdG8WJmoP3 75WtJykJUcHycrh3mtk7r lhPv3SxVbFDYp unQluNrcKRJ8k3ZmYu86P 29sIHdpZHRoPSIyMCUiIH OebUwucy0fqT2oXs0+PC9 xr7rpbo26wN93 dHI+GKViVWN9xExbLGpfZ OQdfG4nMFdhQuL6APHiIf QmwK68aNLiRHhoYa7mkDh zhTljUW2mZTSq iaoab740PcNku4whKZWsz SRiTVemPJL4C49fh3D1BC VmKKVyIHJ3hKO0vS4nyOk nbjogbGVmdDsg nmJuqXzoLGyqBFicB672S KLvkOerGjOuvYBiY4oyce KQHZ9dLrzumQP+PHRkIHN 0eWxlPSdwYWRk tN1zJIRjD7y4ZiCqHlF6Q PhwN7VuqnE4HJOtsCOaLX SsrXPSoH5ryhneq4csbdo gIzAwMDAwMDt0 NRm6QPIquVvgOvIvBNR3T aK6HMN9wRSltC0nnNqgcp mkvG5vYra+RklOOjwvdGQ +IAUsYYI6vDjr YLgvNQUnsX3qYUTbK3o2E mZbWeT3IZhpO3HgidL1SG UdxVWuLOOnoNHIfL1aupf vq8abfhbbFiHl YUDmATq6UTh1OILqgQglP iWlVIF1UcU3NXB6qXPxjH 6juVuoayzfbL8bUbo+TVJ OOjwvdGQ+PHRk HSL4tRcgPAzoWYKjuS3uN CWvK9u1BiVeKmC8OQrzZ8 UtxdN8RDLwbEJvAJKseIS UgQ2umervu4cf pzkfAyRzGAPhTZa3LYk9N QYdrTyjSiBxOBJ1MiR6SU B1hAJiuL4olAsvwrnjuH7 wOyc+CVZ1VYF1 KV46JL46R7QpFibttDZct +PHRhYmxlIHdpZHRoPS qqDPTeIxRslNvkYG6eKl7 yZGVyLWNvbGxh cHNlOiBj (more content not included)... Normal [facility] Auto Diffon 08-09-2022 Basophils/100 WBC (Bld) 0.5 % Normal 0.0-2.0 [facility] Comment on above: Order Comment: Order Added by Discern Expert. Performed By: #### 2 320523, 9052867, 67052749, 2804664, 13240950, 18161681, 93012420 ####[facility] [address] [place] [address] Basophils/Leukocytes Auto (Bld) [Pure # fraction] 0.1 E9/L Normal 0.0-0.2 [facility] Comment on above: Order Comment: Order Added by Discern Expert. Performed By: #### 2 755720, 0669693, 03971250, 2597012, 73728863, 51817695, 63456313 ####[facility] [address] [place] [address] Eosinophils/100 WBC (Bld) 2.7 % Normal 0.0-8.0 [facility] Comment on above: Order Comment: Order Added by Discern Expert. Performed By: #### 2 097607, 3173012, 66323487, 3801772, 97189280, 75690737, 05613084 ####[facility] [address] [place] [address] Eosinophils/Leukocytes Auto (Bld) [Pure # fraction] 0.4 E9/L Normal 0.0-0.5 [facility] Comment on above: Order Comment: Order Added by Discern Expert. Performed By: #### 2 016975, 7968145, 43440172, 8529401, 94773969, 96410607, 05214687 ####[facility] [address] [place] [address] Lymphocytes/100 WBC (Bld) 12.8 % Low 14.0-50.0 [facility] Comment on above: Order Comment: Order Added by Discern Expert. Performed By: #### 2 899018, 8006522, 28107034, 6431155, 63020721, 29318407, 79009781 ####[facility] [address] [place] [address] Lymphocytes/Leukocytes Auto (Bld) [Pure # fraction] 2.1 E9/L Normal 1.0-4.0 [facility] Comment on above: Order Comment: Order Added by Refugio Expert. Performed By: #### 2 509324, 0298745, 54959657, 2220859, 86080195, 40633797, 12125798 ####[facility] [address] [place] [address] Monocytes/100 WBC (Bld) 6.4 % Normal 4.0-14.0 [facility] Comment on above: Order Comment: Order Added by Refugio Expert. Performed By: #### 2 253277, 9426160, 50431677, 9755818, 04758771, 03039282, 61540999 ####[facility] [address] [place] [address] Monocytes/Leukocytes Auto (Bld) [Pure # fraction] 1.0 E9/L Normal 0.2-1.0 [facility] Comment on above: Order Comment: Order Added by Refugio Expert. Performed By: #### 2 282984, 0990736, 37163826, 3659191, 49551257, 97644150, 13245303 ####[address] [place] [address] Neutrophils/100 WBC (Bld) 77.6 % High 36.0-75.0 [facility] Comment on above: Order Comment: Order Added by Discern Expert. Performed By: #### 2 852603, 7165510, 58700916, 7846810, 37118562, 41383461, 32322152 ####[facility] [address] [place] [address] Neutrophils/Leukocytes Auto (Bld) [Pure # fraction] 12.6 E9/L High 2.0-7.5 [facility] Comment on above: Order Comment: Order Added by Discern Expert. Performed By: #### 2 613452, 9308939, 93025917, 2612974, 47375918, 91161096, 40613394 ####[facility] [address] [place] [address] BMPon 08-09-2022 Creatinine [Mass/Vol] 1.1 mg/dL Normal 0.5-1.3 [facility] Comment on above: Performed By: #### 2 137941, 4649424, 21773621, 1894558, 97468726, 15448292, 30978049 ####[facility] [address] [place] [address] Urea nitrogen [Mass/Vol] 18 mg/dL Normal 5-21 [facility] Comment on above: Performed By: #### 2 223317, 4409370, 89139537, 6037819, 79672283, 05867832, 68424142 ####[facility] [address] [place] [address] Urea nitrogen/Creatinine [Mass ratio] 16 No Units Normal 10-20 [facility] Comment on above: Performed By: #### 2 903362, 3226804, 77071967, 9250219, 30651895, 86460085, 57993180 ####[facility] [address] [place] [address] Anion gap [Moles/Vol] 13 mmol/L Normal 6-16 [facility] Comment on above: Performed By: #### 2 446386, 5218564, 51085714, 4485906, 09471422, 95959721, 74523453 ####[facility] [address] [place] [address] Calcium [Mass/Vol] 8.8 mg/dL Low 8.9-11.1 [facility] Comment on above: Performed By: #### 2 087248, 3059818, 30599756, 5420786, 87729206, 12683343, 91893413 ####[facility] [address] [place] [address] Chloride [Moles/Vol] 101 mmol/L Normal 101-111 [facility] Comment on above: Performed By: #### 2 014864, 6612447, 41206968, 8964608, 33288504, 83065543, 56144294 ####[facility] [address] [place] [address] CO2 [Moles/Vol] 27 mmol/L Normal 21-31 [place] Comment on above: Performed By: #### 2 088708, 4702000, 68207270, 4712531, 74702745, 97328986, 82042857 ####[facility] [address] [place] [address] Glucose [Mass/Vol] 121 mg/dL Normal 55-199 [facility] Comment on above: Result Comment: If t his glucose result represents a fasting glucose, interpretation should refer to the following reference range: 55-99 mg/dL Performed By: #### 2 204353, 2960170, 60036106, 1074518, 70732957, 52354051, 49237478 ####[facility] [address] [place] [address] Potassium [Moles/Vol] 3.9 mmol/L Normal 3.5-5.3 [facility] Comment on above: Performed By: #### 2 148623, 1531792, 97226513, 8459990, 13924352, 56694482, 64506622 ####[facility] [address] [place] [address] Sodium [Moles/Vol] 137 mmol/L Normal 135-145 [facility] Comment on above: Performed By: #### 2 442405, 1927441, 58685085, 2772366, 37235352, 68335899, 07940478 ####[facility] [address] [place] [address] BNPon 08-09-2022 Int Ctr BNP Pass Normal [facility] Comment on above: Performed By: #### 2 066926, 0689751, 18607243, 4906258, 46143964, 36967482, 92354662 ####[facility] [address] [place] [address] Natriuretic peptide B (Bld) [Mass/Vol] 19 pg/mL Normal 5-80 [facility] Comment on above: Performed By: #### 2 168557, 3666834, 64573479, 6295627, 79574863, 77776370, 25225334 ####[facility] [address] [place] [address] Blood Gas Art, with Lytes, G alex, [place] 08-09-2022 a/A Ratio Art 75.90 % Normal >=0.80 [facility] Comment on above: Performed By: #### 4 45838742 ####[facility] [address] [place] [address] AaDO2 Art 21.9 mmHg High 5.0-15.0 [facility] Comment on above: Performed By: #### 4 65487775 ####[facility] [address] [place] [address] Allens Test Not Applicable Normal [place] Comment on above: Performed By: #### 4 17001371 ####[facility] [address] [place] [address] Base Excess Arterial 3.1 mmol/L Normal >=2.8 [facility] Comment on above: Performed By: #### 4 34785169 ####[facility] [address] [facility] [address] cCa2+ Art 4.86 mg/dL Normal 4.40-5.30 [facility] Comment on above: Performed By: #### 4 98883239 ####[facility] [address] [facility] [place] [address] cCl- Art 105.0 mmol/L Normal 101.0-111.0 [facility] Comment on above: Performed By: #### 4 35122925 ####[facility] [address] [place] [address] cGlu Art 117 mg/dL High 55-99 [facility] Comment on above: Performed By: #### 4 21321239 ####[place] [place] [address] cK+ Art 4.0 mmol/L Normal 3.5-5.3 [facility] Comment on above: Performed By: #### 4 32224072 ####[address] [place] [address] cLac Art 1.4 mmol/L Normal .5-2.2 [facility] Comment on above: Performed By: #### 4 05323236 ####[facility] [address] [facility] [address] source inspector+ Art 142.0 mmol/L Normal 135.0-145.0 [facility] Comment on above: Performed By: #### 4 42501124 ####[facility] [address] [facility] [place] [address] Drawn by RLG Invalid Interpretation Code [facility] Comment on above: Performed By: #### 4 37638261 ####[address] [place] [place] [address] FCOHb Art 1.0 % Low 1.5-4.9 [facility] Comment on above: Result Comment: Refe rence range Nonsmoker <1.5% Smoker <5.0% Heavy Smoker <9.0% Performed By: #### 4 80863708 ####[facility] [address] [place] [address] FIO2 BG 21 Invalid Interpretation Code [facility] Comment on above: Performed By: #### 4 24054213 ####[address] [place] [address] FMetHb Art 0.5 % Normal 0.0-1.9 [facility] Comment on above: Performed By: #### 4 55207536 ####[address] [place] [address] FO2Hb Art 92.6 % Normal 92.0-100.0 [facility] Comment on above: Performed By: #### 4 [id number] ####[address] [address] HCO3 (Bld) [Moles/Vol] 27.1 mmol/L High 22.0-26.0 [facility] Comment on above: Performed By: #### 4 98006781 ####[address] [address] Hemoglobin (Bld) [Mass/Vol] 12.5 g/dL Normal 12.0-16.0 [facility] Comment on above: Performed By: #### 4 59543293 ####[address] [address] Oxygen saturation in Blood 94.1 % Low 95.0-100.0 [facility] Comment on above: Performed By: #### 4 45320545 ####[address] [place] [address] P CO2 Arterial 48.9 mmHg High 35.0-45.0 [facility] Comment on above: Performed By: #### 4 77055506 ####[address] [facility] [place] [address] P O2 Arterial 68.8 mmHg Low 80.0-100.0 [facility] Comment on above: Performed By: #### 4 99250182 ####[address] [place] [address] pH Arterial 7.383 Normal 7.350-7.450 [facility] Comment on above: Performed By: #### 4 55855969 ####[place] [address] Sample Site R Brachial Normal [facility] Comment on above: Performed By: #### 4 54929323 ####[place] [address] Sample Type Arterial Draw Normal [facility] Comment on above: Performed By: #### 4 03121711 ####[place] [address] CBC w/ Auto Diffon 3 Erythrocyte distribution width (RBC) [Ratio] 15.4 % High 10.9-14.2 [facility] Comment on above: Performed By: #### 2 550834, 2752289, 67602405, 0341942, 39735022, 94479551, 96582364 ####[facility] [address] [place], [place] [address] Hematocrit (Bld) [Volume fraction] 36.9 % Normal 34.0-46.0 [facility] Comment on above: Performed By: #### 2 833052, 3077648, 73539443, 8181045, 20882320, 65628259, 90914698 ####[address] [address] Hemoglobin (Bld) [Mass/Vol] 11.8 g/dL Low 12.0-16.0 [facility] Comment on above: Performed By: #### 2 651904, 4345235, 24407324, 5543802, 99234020, 75144275, 70764816 ####[facility] [address] [place] [address] MCH (RBC) [Entitic mass] 28.0 pg Normal 27.0-34.0 [facility] Comment on above: Performed By: #### 2 380831, 9123651, 65452123, 7042161, 29598884, 34230348, 94480026 ####[facility] [address] [place] [address] MCHC (RBC) [Mass/Vol] 32.0 g/dL Normal 31.4-36.0 [facility] Comment on above: Performed By: #### 2 572726, 7418721, 24724697, 2781608, 58340595, 17215220, 18896548 ####[facility] [address] [place] [address] MCV (RBC) [Entitic vol] 87.6 fL Normal 80.0-100.0 [facility] Comment on above: Performed By: #### 2 164018, 1466647, 32056142, 3598817, 33696080, 40432494, 56545808 ####[address] [address] Platelet mean volume (Bld) [Entitic vol] 8.4 fL Normal 6.4-10.8 [facility] Comment on above: Performed By: #### 2 970211, 0082805, 96939261, 5685717, 38934819, 84506276, 76246649 ####[address] [address] Platelets (Bld) [#/Vol] 238.0 E9/L Normal 150.0-500.0 [facility] Comment on above: Performed By: #### 2 262102, 3660795, 35101286, 8213477, 52050581, 67756268, 92184977 ####[address] [address] RBC (Bld) [#/Vol] 4.2 E12/L Low 4.3-5.9 [facility] Comment on above: Performed By: #### 2 408870, 5588796, 65542818, 8617982, 07051085, 23616811, 80613546 ####[address] [place] [address] WBC corrected for nucl RBC Auto (Bld) [#/Vol] 16.3 E9/L High 4.0-11.0 [place] Comment on above: Result Comment: Franny chaudhry reviewed by LW. Performed By: #### 2 395976, 3015060, 64708828, 5288561, 36217488, 67566233, 84629780 ####[facility] [address] [place] [address] CHEMISTRYOrdered By: SYSTEM SYSTEM on 08-09-2022 Troponin [...] 50 mL/min/1.73 m2 Low >=59mL/min/1 .73 m2 [facility] Chem S Glucose [Mass/Vol] 121 mg/dL Normal 55 - 199 mg/dL [facility] Remisol Potassium [Moles/Vol] 3.9 mmol/L Normal 3.5 - 5.3 mmol/L [facility] Remisol Sodium [Moles/Vol] 137 mmol/L Normal 135 - 145 mmol/L [facility]isol Troponin I.cardiac [Mass/Vol] 4.00 pg/mL Low 10.10 - 27.10 pg/mL [facility] Remisol Urea nitrogen [Mass/Vol] 18 mg/dL Normal 5 - 21 mg/dL [facility] Remisol Urea nitrogen/Creatinine [Mass ratio] 16 mg/mg Normal 10 - 20 [facility] Remisol CHEMISTRYOrdered By: Evelyn Mercado tter on 08-09-2022 Natriuretic peptide B (Bld) [Mass/Vol] 19 pg/mL Normal 5 - 80 pg/mL [facility] HemeManSS COAGULATIONOrdered By: Sagar Castorena on 08-09-2022 aPTT Coag (PPP) [Time] 31.4 s Normal 25.1 - 36.5 second(s) [facility] Auto Coag INR Coag (PPP) [Relative time] 0.9 {INR} Invalid Interpretation Code [facility] Auto Coag PT Coag (PPP) [Time] 10.3 s Normal 9.4 - 1 2.5 second(s) [facility] Auto Coag CTA Cheston 08-09-2022 CTA Chest [...] 370 Contrast amount in ml's: 73 Normal [facility] Discharge Instructionson Discharge Instructions [id number]# [email or web address] Normal [facility] ED Clinical Summaryon 2022 ED Clinical Summary [place] [id number] ED Clinical Summary Person Information Name: VIVIAN VANN Vika/[facility] Age: 62 Years : 1960 Sex: Female Language: [place]an PCP: Екатерина Robert MD Marital Status: Visit [...] 08/09/2022 18:01:49 08/09/2022 18:01:49 08/09/2022 18:01:49 ADDRESS: [address] [id number] PHYS DOC NOTES: MEDICAL INFORMATION: Prescriptions Given: [facility], [address], [place] [id number], [phone] brompheniramine/dextr omethorphan/PSE (Bromfed DM oral syrup) 5 [...] Follow up: With: Address: When: Екатерина Robert [address] [place] [address], [facility] [place] [id number] [facility] (1) In 3 days 08/12/2022 Comments: Call the office of your primary care doctor to arrange for follow-up within the above-stated timeframe. Follow-up with your primary care doctor about this ED visit. You should review your labs, imaging, and diagnoses from this ED visit with your primary care physician. If y (more content not included)... Normal [facility] ED Note-Physicianon 08-10-19 ED Note-Physician Basic Information [...] that she has had 2 admissions to [facility] over the last few weeks for pneumonia/COPD exacerbation. Patient is currently on amoxicillin at home, feels that her symptoms are not improving but are in fact worsening. Patient endorses fevers and chills, myalgias. Patient reports her symptoms had not improved much on her last discharge from [facility], and worsening since that time. Patient is [...] Diagnosis: [] [facility] Data External documents reviewed: [] My EKG [...] co (more content not included)... Normal [facility] Comment on above: Result Comment: Elec tronically [...] these instructions at home: Medicines ? Take cavy-toy-ciylxil and prescription medicines (inhaled or pills) only [...] you e (more content not included)... Normal [facility] ED Patient Summaryon 023 ED Patient Summary [address] [address] Patient Discharge Instructions Person Information Name: VIVIAN VANN Age: 62 Years Arrival Date: 08/09/2022 13:09:07 Discharge Diagnosis: COPD exacerbation Primary Care Physician: Екатерина Robert MD Provider Information Primary Provider: Arsenio Martin DO Advanced Pathology Teacher:Clinton Lucero PA-C The exam and treatment you received in the Emergency Department were for an urgent problem and are not intended as complete care. It is important that you follow up with a doctor, nurse practitioner, or physician?s intellectual property legal assistant for ongoing care. If your [...] Follow-up Instructions: With: Address: When: Екатерина Robert [address] [place] [address], [place] [address] Business (1) In 3 days [...] opioids can be used to help relieve ugfnzcnv-uy-thgebv pain and are often prescribed following a [...] Safely disp (more content not included)... Normal [facility] EMS Documentationon 08-10-19 EMS Documentation Please click on link to see report [id number] CiX5+prnDQolQUJDcGRmI XXiShJ7UGbzFzIpVS5bcp 2DUCnGL3DqTHYlUMd1Tn4 I LGchAZe3MZKdWD1ON5guI Ws7ObR4Ax2WaW2dRBUait CpWJQJB66kKsmcZfGtQLv vKLRvBms9IbCR Ju3tBEMxZYMsNHAyJVZbT CAgICAgICAgICAgICAgIC AgICAgICAgICAgICAgICA gICAgICAgICAg ICAgICAgICAgICAgICAgI CAgICAgDQplbmRvYmoNCg 9KfXVsQj2YOlTaSmADVnP wMDAwMDAwMzIg YQKrJBIbkx2SDQMgFGBhM TT9FDJdFPQnXZQsVAqaSK DvGHQbDRp2FIKjKNLaNQ0 NCjAwMDAwMDE3 RHRgANXpAMHyff1WKRKuJ DAwMTkzNCAwMDAwMCBuDQ ciIEOuUUEnUKq5CFXlIQD zNB4RWvGlGIQv DASvHnBcGQWwZKMctb3BW DAwMDAwMjMxNSAwMDAwMC YfHFfqCYNkXRHxZzm9LVK eWKZpNO2ZXqNa JWXpIFS8NVnpHNTaIEHow j6FJXGdQKVaAcdwIRXxTE AwMCBuDQowMDAwMDAzMDY mUFVdBCWyPZ6N QcFhMQKbNMN2BLTvSSGdH JRfqb3MHGDiHTSyByByZd AwMDAwMCBuDQowMDAwMDA dVGZ9WALiWWRw QA2FDqXzKIQzNSDeHBCtT JFuPZRczl4RPYQcTDMuZA E2WxEmANQhALKlOAnbTNG aSTW9TpR6YDGs QMClWY6CSwAxUOVwPHD1Y ENgGWPvUOBoug0AWKDfBO TcDNP8OEQoAJBrSBJkZVa wRBAiNIL4WUI7 YQCjEOQxMV8VHjIjQQVeQ LU7GEnySGFaKFAgkm0NCK AwMDAwOTMwMCAwMDAwMCB uDQowMDAwMDQ5 IRqzZPXvDRUdFF3DPaPzH USjECE7RELbLJFgKPVbmw 1SpMCvoUzijt8ZAJoLQ1z OMEz4LDJJCUH1 LpW7R9Y9GmW9MYdNUBaxI QG2ZUATPcH5OPQ+CjxGRj QvX0PCFROPHOCuOaulGYF DIXF8MUxdRDs3 ILUiOU5dHt6KqbZ5ROU2L NddDGxsQc7ilCCwNoAnRN KSW8DucxWkXUuEM7NjrDS hKSHsY6YRPEL0 Rc52JwurnNrISMS6WUZKM ZlhDP3NGdsPTyOeXPhkBy 34P5HBh7B1IfBcJ2RDgKs KydLHSEqmA3kQ xWI5c4doqDwHzNKJnElwD GdJcndPalFSQUlqUHNXaE 02ghvNJ9HlLTs3Z4WTCq6 VUWvpRgTrzI3T aZnyGJT5xV5jPDDMCDbKY lucZX3QXWAKTRr3NEd+Pi AgICAgICAgICAgICAgICA gICAgICAgICAg ICAgICAgICAgICAgICAgI CAgICAgICAgICAgICAgIC AgICAgICAgICAgICAgICA gICAgICAgICAg ICAgICAgICAgICAgICAgI CAgICAgICAgICAgICAgIC AgICAgICAgICAgICAgICA gICAgICAgICAg ICAgICAgICAgICAgICAgI CAgICAgICAgICAgICAgIC AgICAgICAgICAgICAgICA gICAgICAgICAg ICAgICAgICAgICAgICAgI CAgICAgICAgICAgICAgIC AgICAgICAgICAgICAgICA gICAgICAgICAg ICAgICAgICAgICAgICAgI CAgICAgICAgICAgICAgIC AgICAgICAgICAgICAgICA gICAgICAgICAg ICAgICAgICAgICAgICAgI CAgICAgICAgICAgICAgIC AgICAgICAgICAgICAgICA gICAgICAgICAg ICAgICAgICAgICAgICAgI CAgICAgICAgICAgICAgIC AgICAgICAgICAgICAgICA gICAgICAgICAg QS0Wl0OnnaO3cuEgIVpcA FguRHNTFu1PMMtoSaJoYF 7yav9VPHxGO77qkSRwZRO hIDIxIDAgUgov F4PnouIgxNmeuxDpYxPbK RHRPs4EwLGBNRorP1P2mH jxAOUoVHyqMHSZOb3DPMb wIL8fHFAzQFDz Jk2gNLckKZMwTWDmWaRoR HOYUg0TbSMxHT6YXKCxlV 9nCj4+DQplbmRvYmoNCg0 KMjQgMCBvYmoN Bej1Tt0DfJj4BLKoM9XbF YUzJWXbu2LcCi4ZDO9nfB scECN9Je5AZUf0Ch2+DQp ixIKuQY6PVjsb X5KhTREwTUUvDZHoADjTk XCgAIUpQLYQVIyLgXHaDQ jzpTYDMsAQZzMCEmJQzMC rCfK7LPiDW4E2 GUgRZaSjf3D9OXvSSJORK iNvSOxMjKpX5lZOtKnFrk T21IC3tVcVDGAaBDYB8SU wvYvU7NhCFs0K 1J2FNA5ds9XrUJUvSSaje jIiUarJNe6NAeWlGWOvBv cTNld5Ht8Eg687JK65khV bNDIgMCBSXQov WAAfzUTPy4xaJjIhDIJ5Y LMaOdcsWQpdPRKqYY29GA RqOKSiAddrYpLmv2PzG5E iGUc4Hh1GT0Vd INT1SPz6Kk9EHYBaCyEvF vTfSEDBWm0UGx3ZB3J5uX WrH9ZwZ5XZPe2WSaXrHJ8 vdi3TKVipGoBf ZX2cnt6UWJrPE2TUi9dsY hRoZSO0VBAmGnyjEZvxDy ftaOFiIY3BcIE4RCPhS94 cORkqTVTvI7Lc NGc1Oc1ZXBCarZHxLPPfT NhGN1uPIuogN6FfRRsSS5 ezMaK4DNDmOPVoVvp+Pgo +NzcsS1HryYnn APAqSa0ojBsbXLfwXUPrT C7paxBuiLj+Fs7Iy2KcNS GtNBr3oSZR3KDy7HOxGGQ rYWA1UKCzsyDC ADkv8RyEjCRqOrEcyWBaB 8lcBPDs31pYRZZcZgrYu8 qyIzDw0YfSXW+ZE6BDrsL nUoKmwa3SFNsa arHisZYiZL0RMfGgSH7qk w0YLQhxOoIsKG0byj2YIY vYZ7SOHI0Dq5CqBTdVH5D SNEIPA3hCUISC Q8cBZZTRA0jKAZGBI07SK FKZS7GQYGJwePQIN1SxUO SLNu1AXaQmYB0atd6HPPr aMJKmXV0fnn1A RJkRV2ENVU3Ga9CvUNzCF 6AbRRCNGz0HHrQfNV3uvc 1SKPsmMEYtQL2jry6EYFj VR6TDBA9Wt5Qj FWcZH5EULSZYQ3qEKKXTX 1cFMKNLX3dWDSQPW01PYN KZL0GRJZIjiZCHZ7OiLCE QZn5ALuVnSQ1d ln5QLYcdCSHgOL7gjh3LS QiAW9Xyx2ESg722RX0SBb vAGA4dN549wzqtzs9jk4V TLUJvbGRNVAov XKMrF5BiEGLckNQhyjWjR OwoTPTmICMhZo9HpzDoDG luZyAvSWRlbnRpdHktSAo lS3WvzIhxSDHa ZOptSBPEB5JyYD8kA94cN RRbReTxMLPZM4K9cHElE3 UzrjQVEe3HUpKiPT6muf1 KROqlYAHlQC8r zt3DZVtNT2Tau1JAj017Z S1LVxjTLJ7jB615cmxjek 5ve3VIURSwhZATCCypH4r DF2bfoENvPO7p pwY1YIocX0IqOMBxtswvL VmkYA27zPW6LEiiPjLvyU V9kmhhNNBtc3TnVWkeK2Q wcGxlbWVudCAw Cj4+Gb9ZGOYXk5kJSK8yu LDjGZYhrtRgrQzDJ4WAZF ONN1HpiiRYDUEutgyreE5 yIDMyIDAgUgov Y4GkzIcpWRTeY1aDLg8fv UN0bVNcYd2VmZUdGA1Wo5 16Ix5ZMNyoRSdlILGaQH5 pKKg3Dg5JYn7E UcDbFN2oaz2JIAteVaEhC U0cry0YGWvFN2KaL3FjlE M5FmYdEEG2LPKAV3QopRf gfVvomFY6AXJp Cqt8HTuAX2Oaw2FhpmLnR aWfFfF0Pry6Ud1WbBOkmu WyIPheLd3gnYYOz0ykXt0 lJTKyEBr1TQEn EYcuLH84MLjkDkU0EHSlY fIfIHRkIBJxMJ6yQHE1MA 9FY6LllnOMnYsyFrJ7SAG sIOXTD2VtwiMW LH9yVI4JZkuKAD6rT529n pabru0rl1BUWVSflYTVBK dhIMOniTwsRK8heZBgJXh bG9OorUWhUfEi OIduKZxPD7Y9mDGvC0Egi tKWUSJrwwofuX7tKt1+DQ dlxsTnQwwUXo5FFeFaRRN kPuvNWnk1Cu2V nNh9PREmT6KxXPQmOPXwj 7VkOk6ZNA3gzKyxXcJ1Zs 4+ZPjoaDMeNB9OIzixESI MefZxHYd5I0gN BgWWAQzUSUbbtvOyP8IxC 4c1hVqKpPih9D4exyFQac clE2xhh23W3K0+sFwf9EY BzaNAx5J2g6x5 jOV2OOutHFn6ZaugRl2o4 BxLoridpwBDY/uRlSXnyV fFJgLTzQDS3ondDJDxPUr fg5m3dByL52rt vzCADVywquIa+bz15op2c hQxwMwh7Xc0XE7SoLAiw9 zKQoEWcnEfmbe0Svuea3S VKJtWf6YiPPQs /0HuFm076kS7gN6qbgGCQ Lc1oDPFUoZLvNde1e2dSh ErYH2RaN8jEyBQ0a0SplG Ge9l59bTCD0Jl RvIayawgcodHIYmkChnJi xckc/YkEZ3iz7LyDBS+y+ mUtTNpAyoa7GpwLk6YtkZ Y02vRWLjF65/A pM1XDt2xqdafAy5BLQ7zg 3RyZWFtDQplbmRvYmoNCg 4LXoAbSLAkVgvIMgo6Mh0 TVEFsWo4tdJUe RtbPLQrLR6CruUMwMDLQV OmOX38MTs5HXCFuBP9nLG 40Ut7rvROdZeI4GGJnNg8 VR9BpS42orT9u SY3POKOvhEl4pO0NWd2Gv UJ8aMDmVB1VfHLkLJnmAB 9Bbafrq8WiSIH0 (more content not included)... Normal [facility] FT Blood GasesOrdered By: Ra raciel Marx on 08-09-2022 a/A Ratio Art 75.90 % Normal >=0.80% [facility] Resp Auto SS AaDO2 Art 21.9 mm[Hg] High 5.0 - 15.0 mmHg FT Resp Auto SS Allens Test Not Applicable (08/09/22 2:03 PM) Normal [facility] Resp Auto SS Base Excess Arterial 3.1 mmol/L Normal >=2.8mmol/L FTM C Resp Auto SS cCa2+ Art 4.86 mg/dL Normal 4.40 - 5.30 mg/dL FT Resp Auto SS cCl- Art 105.0 mmol/L Normal 101.0 - 111.0 mmol/L FT Resp Auto SS cGlu Art 117 mg/dL High 55 - 99 mg/dL FT Resp Auto SS cK+ Art 4.0 mmol/L Normal 3.5 - 5.3 mmol/L [facility] Resp Auto SS cLac Art 1.4 mmol/L Normal 0.5 - 2.2 mmol/L [facility] Resp Auto SS source inspector+ Art 142.0 mmol/L Normal 135.0 - 145.0 mmol/L [facility] Resp Auto SS Drawn by RLG Invalid Interpretation Code [facility] Resp Auto SS FCOHb Art 1.0 % Low 1.5 - 4.9 % [facility] Resp Auto SS FIO2 BG 21 Invalid Interpretation Code [facility] Resp Auto SS FMetHb Art 0.5 % Normal 0.0 - 1.9 % [facility] Resp Auto SS FO2Hb Art 92.6 % Normal 92.0 - 100.0 % [facility] Resp Auto SS HCO3 (Bld) [Moles/Vol] 27.1 mmol/L High 22.0 - 26.0 mmol/L [facility] Resp Auto SS Hemoglobin (Bld) [Mass/Vol] 12.5 g/dL Normal 12.0 - 16.0 gm/dL [facility] Resp Auto SS P CO2 Arterial 48.9 mm[Hg] High 35.0 - 45.0 mmHg [facility] Resp Auto SS P O2 Arterial 68.8 mm[Hg] Low 80.0 - 100.0 mmHg [facility] Resp Auto SS pH Arterial 7.383 Normal 7.350 - 7.450 [facility] Resp Auto SS Sample Site R Brachial (08/09/22 2:03 PM) Normal [facility] Resp Auto SS Sample Type Arterial Draw (08/09/22 2:03 PM) Normal [facility] Resp Auto SS HEMATOLOGYOrdered By: SYSTEM SYSTEM [...] 16.3 E9/L High 4.0 - 11.0 E9/L [facility] HemeAutoSS Comment on above: Result Comment: Slid e reviewed by LW. PT & PTTon 08-09-2022 aPTT Coag (PPP) [Time] 31.4 second(s) Normal 25.1-36.5 [facility] Comment on above: Result Comment: Para meter [...] the same coagulation reagent and instrumentation as [facility]. Currently there are no coagulation studies available worldwide for children to 14 days, and no normal ranges. Heparin therapeutic range (represented by Anti-Factor Xa activity of 0.2 - 0.4 U/mL) corresponds to PTT of 56.6 - 109.0 sec. Performed By: #### 2 [id number], [id number], [id number], 5140957, 81144931, [id number], [id number] ####[address] [place] [address] INR Coag (PPP) [Relative time] 0.9 {INR} Invalid Interpretation Code [facility] Comment on above: Result Comment: INR results are specifically intended to assess patients stabilized on long-term Anticoagulation therapy suggested INR?s ?Less Intensive Anticoagulation? 2.0 ? 3.0 Conventional Range 3.0 ? 4.5 Performed By: #### 2 633413, 5116955, 42899513, 4470371, 16720402, 48885256, 47328403 ####[facility] [address] [place] [address] PT Coag (PPP) [Time] 10.3 second(s) Normal 9.4-12.5 [facility] Comment on above: Result Comment: 15 d [...] the same coagulation reagent and instrumentation as [facility]. Currently there are no coagulation studies available worldwide for children to 14 days, and no normal ranges. Performed By: #### 2 597725, 9153376, 88635130, 5503840, 12046359, 03564830, 19375910 ####[facility] [address] [place] [address] Pre-Arrival Noteon Pre-Arrival Note Pre-Arrival Summary Name: , Current Date: 08/09/2022 13:09:29 EDT Gender: Female Date of : Age: 62 Pre-Arrival Type: EMS ETA: 08/09/2022 13:33:00 EDT Primary Care Physician: Presenting Problem: sob Pre-Arrival User: John Martin Referring Source: Location: [place] Completion Date/Time: 08/09/2022 13:03:00 [facility] Emergency Department Pre-Hospital Report Form Vital Signs: Pre-Hospital Report: Treatment in Route: Response to Treatment: Misc. Issues: Normal [facility] Troponin 0 Hr.on 08-09-2022 Troponin I.cardiac [Mass/Vol] 4.00 pg/mL Low 10.10-27.10 [facility] Comment on above: Result Comment: The 95% CI (Confidence Interval) PPV (Positive Predictive Value) for myocardial infarction in females is 38 pg/mL, in males 51 pg/mL. The results should be used in conjunction with clinical conditions of myocardial infarction. (QuadROI High Sensitivity Troponin I Instructions For Use, [employer], December 2017) Performed By: #### 2 [id number], 9213011, 15987148, 2255723, 90176898, 79122686, [id number] ####[facility] [address] [place] [address] Troponin 3 Hr.on 08-09-2022 Troponin I.cardiac [Mass/Vol] 7.00 pg/mL Low 10.10-27.10 [facility] Comment on above: Result Comment: The 95% CI (Confidence Interval) PPV (Positive Predictive Value) for myocardial infarction in females is 38 pg/mL, in males 51 pg/mL. The results should be used in conjunction with clinical conditions of myocardial infarction. (QuadROI High Sensitivity Troponin I Instructions For Use, [employer], December 2017) Performed By: #### 1 [id number] ####[address] [place] [address] XR Chest Single Viewon 08-09 XR Chest [...] mGy = na DAP = na Normal [facility] eGFRon 08-09-2022 GFR/1.73 sq M.predicted among blacks MDRD (S/P/Bld) [Vol rate/Area] mL/min/{1.73_m2} Normal >=59 [facility] Comment on above: Order Comment: Order added by Discern Expert. Result Comment: eGFR is race adjusted. AA=. Performed By: #### 2 810165, 4566939, 74642026, 1442348, 37370736, 93939274, 56267451 ####[facility] [address] [place] [address] GFR/1.73 sq M.predicted among non-blacks MDRD (S/P/Bld) [Vol rate/Area] 50 mL/min/1.73 m2 Low >=59 [facility] Comment on above: Order Comment: Order added by Discern Expert. Result Comment: Director Of Sustainability valeria kidney disease could be indicated at eGFR's of less than 60 mL/min/1.73m2. Kidney failure is indicated at less than 15 mL/min/1.73m2. Performed By: #### 2 128537, 0690273, 72164730, 1621861, 83873453, 63786646, 46065328 ####[facility] [address] [place] [address] CBC W MANUAL DIFFon 08-02-19 ATYPICAL LYMPH # Normal [facility] Comment on above: Performed By: #### Isabell PONCE ####[facility] [id number] Yañez ATYPICAL LYMPH % Normal [facility] Comment on above: Performed By: #### Isabell PONCE ####[facility] [address] [phone]. Nahed Yañez BAND # 0.9 103/ul Critically high 0.0-0.3 [facility] Comment on above: Performed By: #### C BCMAN ####[facility] [address] [address]Dr. Nahed Yañez BAND % 5 % Normal 0-5 [facility] Comment on above: Performed By: #### C BCMAN ####[facility] [address] [place] [address] [address]Dr. Yiashley Yañez BASOM # 0.00 103/ul Normal 0.00-0.10 [facility] Comment on above: Performed By: #### C BCISAIAH ####[facility] [address] [place] [address]Dr. Nahed Yañez BASOM % 0.0 % Critically low 0.2-2.0 [facility] Comment on above: Performed By: #### C BCISAIAH ####[facility] [address] [place] [address]Dr. Nahed Yañez BLAST # Normal [facility] Comment on above: Performed By: #### C BCISAIAH ####[facility] [address] [place] [address]Dr. Yilan Yañez BLAST % Normal [facility] Comment on above: Performed By: #### C BCISAIAH ####[facility] [address] [place] [address]Dr. Nahed Yañez CORRECTED WBC Normal 4.0-11.0 [facility] Comment on above: Performed By: #### C BCMAN ####[facility] [address] [place] [address]Dr. Nahed Yañez EOS # 0.00 103/ul Normal 0.00-0.70 [facility] Comment on above: Performed By: #### C BCMAN ####[facility] [address] [place] [address]Dr. Nahed Yañez EOS% 0.0 % Critically low 0.9-7.0 [facility] Comment on above: Performed By: #### C BCISAIAH ####[facility] [address] [place], [place] [address]My. Nahed Yañez HCT 39.5 % Normal 36.0-48.0 [facility] Comment on above: Performed By: #### C ROSARIO ####[facility] [address] [phone]. Nahed Yañez HGB 13.0 g/dl Normal 12.0-16.0 [facility] Comment on above: Performed By: #### C ROSARIO ####[facility] [address] [phone]. Nhaed Yañez LYMPHM # 1.72 103/ul Normal 1.20-3.80 [facility] Comment on above: Performed By: #### C ROSARIO ####[facility] [address] [phone]. Nahed Yañez LYMPHM% 10.0 % Critically low 20.5-60.0 [facility] Comment on above: Performed By: #### Isabell PONCE ####[facility] [address] [place] [phone]. Nahed Yañez MCH 28.7 pg Normal 26.7-34.0 [facility] Comment on above: Performed By: #### Isabell PONCE ####[facility] [address] [phone]. Nahed Yañez MCHC 32.9 g/dl Normal 29.9-35.2 [facility] Comment on above: Performed By: #### C ROSARIO ####[facility] [address] [place] [phone]. Nahed Yañez MCV 87.2 fL Normal 81.0-99.0 [facility] Comment on above: Performed By: #### C ROSARIO ####[facility] [address] [place] [phone]. Nahed Yañez METAMYELOCYTE # Normal [facility] Comment on above: Performed By: #### C ROSARIO ####[facility] [address] [phone]. Nahed Yañez METAMYELOCYTE % Normal [facility] Comment on above: Performed By: #### C ROSARIO ####[facility] [address] [place], [place] [address]Ai. Nahed Yañez MONOM# 0.86 103/ul Critically high 0.30-0.80 [facility] Comment on above: Performed By: #### C ROSARIO ####[facility] [address] [place], [place] [address]Dy. Nahed Yañez MONOM% 5.0 % Normal 1.7-12.0 [facility] Comment on above: Performed By: #### C ROSARIO ####[facility] [address] [place], [place] [address]Uw. Nahed Yañez MPV 9.8 fL Normal 9.5-13.5 [facility] Comment on above: Performed By: #### C ROSARIO ####[facility] [address] [phone]. Nahed Yañez MYELOCYTE # Normal [facility] Comment on above: Performed By: #### C ROSARIO ####[facility] [address] [place], [place] [address]Bu. Nahed Yañez MYELOCYTE % Normal [facility] Comment on above: Performed By: #### C ROSARIO ####[facility] [address] [place], [place] [address]Ft. Nahed Yañez NRBC Normal [facility] Comment on above: Performed By: #### C ROSARIO ####[facility] [address] [place] [phone]. Nahed Yañez PLT 388 103/ul Normal 150-450 [facility] Comment on above: Performed By: #### C ROSARIO ####[facility] [address] [place] [phone]. Nahed Yañez RBC 4.53 106/ul Normal 4.20-5.40 [facility] Comment on above: Performed By: #### C ROSARIO ####[facility] [address] [place] [phone]. Rosemarieashley Otilio RDW 14.4 % Normal 11.0-15.0 [facility] Comment on above: Performed By: #### C BCMAN ####[facility] [address] [place] [address]Dr. Nahed Yañez SEG # 13.76 103/ul Critically high 1.40-6.50 [facility] Comment on above: Performed By: #### C BCMAN ####[facility] [address] [place] [address]Dr. Nahed Yañez SEG % 80.0 % Critically high 43.0-75.[address] [facility] Comment on above: Performed By: #### C ROSARIO ####[facility] [address] [place] [address]Dr. Nahed Yañez WBC 17.2 103/ul Critically high 4.0-11.0 [facility] Comment on above: Performed By: #### C ROSARIO ####[facility] [address] [place] [address]Dr. Nahed Yañez MAGNESIUMon 08-01-2022 Magnesium [Mass/Vol] 2.0 mg/dL Normal 1.8-2.4 [facility] Comment on above: Performed By: #### MG COLE, CMP ####[facility] [address] [place] [address]DrShaun Rosemarieashley Yañez POINT OF CARE GLUCOSEon 07-13 Glucose [Mass/Vol] 267 mg/dL Critically high 74-106 [facility] Comment on above: Performed By: #### P OCGLUC ####[facility] [address] [place] [address]DrShaun Yañez PROF 14(COMP METB)on 023 Albumin [Mass/Vol] 3.4 g/dL Normal 3.4-5.0 [facility] Comment on above: Performed By: #### MG COLE, CMP ####[facility] [address] [place] [address]Dr. Nahed Yañez Albumin/Globulin [Mass ratio] 0.9 {ratio} Normal [facility] Comment on above: Performed By: #### MG COLE, CMP ####[facility] [address] [place] [phone]. Nahed Yañez ALP [Catalytic activity/Vol] 100 U/L Normal 46-116 [facility] Comment on above: Performed By: #### MG COLE, CMP ####[facility] [address] [place] [address]Dr. Nahed Yañez ALT [Catalytic activity/Vol] 19 U/L Normal 14-59 [facility] Comment on above: Performed By: #### MG COLE, CMP ####[facility] [address] [place] [address]Dr. Nahed Yañez Anion gap [Moles/Vol] 12.7 mmol/L Normal [facility] Comment on above: Performed By: #### MG COLE, CMP ####[facility] [address] [place] [address]Dr. Nahed Yañez AST [Catalytic activity/Vol] 13 U/L Critically low 15-37 [facility] Comment on above: Performed By: #### MG COLE, CMP ####[facility] [address] [place] [address]Dr. Nahed Yañez Bilirubin [Mass/Vol] 0.4 mg/dL Normal 0.2-1.0 [facility] Comment on above: Performed By: #### MG COLE, CMP ####[facility] [address] [place] [address]Dr. Nahed Yañez Calcium [Mass/Vol] 9.5 mg/dL Normal 8.5-10.1 [facility] Comment on above: Performed By: #### MG COLE, CMP ####[facility] [address] [place] [address]Dr. Nahed Yañez Chloride [Moles/Vol] 100 mmol/L Normal 98-107 [facility] Comment on above: Performed By: #### MG COLE, CMP ####[facility] [address] [place] [address]Dr. Rosemarieashley Yañez CO2 [Moles/Vol] 27.1 mmol/L Normal 21.0-32.0 [facility] Comment on above: Performed By: #### MG COLE, CMP ####[facility] [address] [place] [address]Dr. Nahed Yañez Creatinine [Mass/Vol] 1.16 mg/dL Critically high 0.55-1.02 [facility] Comment on above: Performed By: #### MG COLE, CMP ####[facility] [address] [place], [place] [address]Dr. Nahed Yañez EGFR-AF PUERTO RICAN 58 mL/min/1.73m2 Critically low >=60 [facility] Comment on above: Performed By: #### MG COLE, CMP ####[facility] [address] [place], [place] [address]Dr. Nahed Yañez EGFR-NON AF PUERTO RICAN 47 mL/min/1.73m2 Critically low >=60 [facility] Comment on above: Performed By: #### MG COLE, CMP ####[facility] [address] [place], [place] [address]Dr. Nahed Yañez Globulin (S) [Mass/Vol] 3.6 g/dL Normal [facility] Comment on above: Performed By: #### MG COLE, CMP ####[facility] [address] [place] [address]Dr. Rosemarieashley Yañez Glucose [Mass/Vol] 175 mg/dL Critically high 74-106 [facility] Comment on above: Performed By: #### MG COLE, CMP ####[facility] [address] [place], [place] [address]Dr. Nahed Yañez Potassium [Moles/Vol] 3.8 mmol/L Normal 3.5-5.1 [facility] Comment on above: Performed By: #### MG COLE, CMP ####[facility] [address] [place] [address]Dr. Nahed Yañez Protein [Mass/Vol] 7.0 g/dL Normal 6.4-8.2 [facility] Comment on above: Performed By: #### MG COLE, CMP ####[facility] [address] [place], [place] [address]Dr. Nahed Yañez Sodium [Moles/Vol] 136 mmol/L Normal 136-145 [facility] Comment on above: Performed By: #### MG COLE, CMP ####[facility] [address] [place], [place] [address]Dr. Nahed Yañez Urea nitrogen [Mass/Vol] 25.0 mg/dL Critically high 7.0-18.0 [facility] Comment on above: Performed By: #### MG COLE, CMP ####[facility] [address] [place], [place] [address]Dr. Nahed Yañez Urea nitrogen/Creatinine [Mass ratio] 21.6 mg/mg Normal [facility] Comment on above: Performed By: #### MG COLE, CMP ####[facility] [address] [place], [place] [address]Dr. Nahed Yañez THEOPHYLLINEon 08-01-2022 THEOPHYLLINE 17.1 ug/mL Normal 10.0-20.0 [facility] Comment on above: Performed By: #### MG COLE, CMP ####[facility] [address] [place], [place] [address]Dr. Nahed Yañez CBC AUTO DIFFon 07-31-2022 BASO # 0.0 103/ul Normal 0.0-0.1 [facility] Comment on above: Performed By: #### C BC ####[facility] [address] [place], [place] [address]Dr. Nahed Yañez Basophils/100 WBC (Bld) 0.2 % Normal 0.2-2.0 [facility] Comment on above: Performed By: #### C BC ####[facility] [address] [place], [place] [address]Dr. Nahed Yañez EO # 0.0 103/ul Normal 0.0-0.7 [facility] Comment on above: Performed By: #### C BC ####[facility] [address] [place], [place] [address]Dr. Nahed Yañez Eosinophils/100 WBC (Bld) 0.0 % Critically low 0.9-7.0 [facility] Comment on above: Performed By: #### C BC ####[facility] [address] [place] [address]Dr. Nahed Yañez Erythrocyte distribution width (RBC) [Ratio] 14.2 % Normal 11.0-15.0 [facility] Comment on above: Performed By: #### C BC ####[facility] [address] [place], [place] [address]Dr. Nahed Yañez Hematocrit (Bld) [Volume fraction] 36.0 % Normal 36.0-48.0 [facility] Comment on above: Performed By: #### C BC ####[facility] [address] [place], [place] [address]Dr. Nahed Yañez Hemoglobin (Bld) [Mass/Vol] 11.4 g/dL Critically low 12.0-16.0 [facility] Comment on above: Performed By: #### C BC ####[facility] [address] [place], [place] [address]Dr. Nahed Yañez IG # 0.21 10e3/ul Critically high 0.00-0.03 [facility] Comment on above: Performed By: #### C BC ####[facility] [address] [place], [place] [address]Dr. Nahed Yañez IG % 1.8 % Critically high 0.0-0.5 [facility] Comment on above: Performed By: #### C BC ####[facility] [address] [place], [place] [address]Dr. Nahed Yañez LYMPH # 1.3 103/ul Normal 1.2-3.8 [facility] Comment on above: Performed By: #### C BC ####[facility] [address] [place], [place] [address]Dr. Nahed Yañez Lymphocytes/100 WBC (Bld) 11.2 % Critically low 20.5-60.0 [facility] Comment on above: Performed By: #### C BC ####[facility] [address] [place], [place] [address]Dr. Nahed Otilio MANUAL DIFF REQ NO Normal [facility] Comment on above: Performed By: #### C BC ####[facility] [address] [place] [address]Dr. Nahed Yañez MCH (RBC) [Entitic mass] 27.7 pg Normal 26.7-34.0 [facility] Comment on above: Performed By: #### C BC ####[facility] [address] [place] [address]Dr. Nahed Yañez MCHC (RBC) [Mass/Vol] 31.7 g/dL Normal 29.9-35.2 [facility] Comment on above: Performed By: #### C BC ####[facility] [address] [place] [address]Dr. Nahed Otilio MCV (RBC) [Entitic vol] 87.6 fL Normal 81.0-99.0 [facility] Comment on above: Performed By: #### C BC ####[facility] M[address]fwjsprlx[address] [place], [place] [address]Dr. Nahed Otilio MONO # 0.8 103/ul Normal 0.3-0.8 [facility] Comment on above: Performed By: #### C BC ####[facility] Lockcunbal[address] [place], [place] [address]Dr. Rosemarieashley Yañez Monocytes/100 WBC (Bld) 7.0 % Normal 1.7-12.0 [facility] Comment on above: Performed By: #### C BC ####[facility] Ywfxtkduls[address] [place], [place] [address]Dr. Rosemarieashley Otilio NEUT # 9.2 103/ul Critically high 1.4-6.5 [facility] Comment on above: Performed By: #### C BC ####[facility] Edeoomjrii[address] [place], [place] [address]Dr. Rosemarieashley Yañez Neutrophils/100 WBC (Bld) 79.8 % Critically high 43.0-75.0 [facility] Comment on above: Performed By: #### C BC ####[facility] [address]otlswud[address] [place] [address]. Nahed Yañez Platelet mean volume (Bld) [Entitic vol] 9.8 fL Normal 9.5-13.5 [facility] Comment on above: Performed By: #### C BC ####[facility] Vkkpqxizpp[address] [place] [address]Dr. Nahed Yañez PLT 317 103/ul Normal 150-450 [facility] Comment on above: Performed By: #### C BC ####[facility] Rwyexhtszn4818 [place] [address]Dr. Nahed Yañez RBC 4.11 106/ul Critically low 4.20-5.[address] [facility] Comment on above: Performed By: #### C BC ####[facility] Cmfrcfghfn4972 [place] [address]Dr. Nahed Yañez WBC 11.5 103/ul Critically high 4.0-11.0 [facility] Comment on above: Performed By: #### C BC ####[facility] Wvvprkzdqm8236 [place] [address]Dr. Nahed Yañez MAGNESIUMon 07-31-2022 Magnesium [Mass/Vol] 1.8 mg/dL Normal 1.8-2.4 [facility] Comment on above: Performed By: #### M JUDY Moore, [facility] ####[facility] Aflffrpxvs[address] [place] [address]Dr. Nahed Yañez POINT OF CARE GLUCOSEon 07-13 Glucose [Mass/Vol] 217 mg/dL Critically high 74-106 [facility] Comment on above: Performed By: #### P OCGLUC ####[facility] Mxgudbalgl[address] [place] [address]Dr. Nahed Yañez Glucose [Mass/Vol] 169 mg/dL Critically high 74-106 [facility] Comment on above: Performed By: #### P OCGLUC ####[facility] Zcesbhawwa[address]76 [place] [address]Dr. Nahed Yañez Glucose [Mass/Vol] 297 mg/dL Critically high 74-106 [facility] Comment on above: Performed By: #### P OCGLUC ####[facility] Rxmeihumtn9905 [place] [address]Dr. Nahed Yañez Glucose [Mass/Vol] 233 mg/dL Critically high 74-106 [facility] Comment on above: Performed By: #### P OCGLUC ####[facility] Zcwbmgcujr5491 [place] [address]Dr. Nahed Yañez PROF 14(COMP METB)on 023 Albumin [Mass/Vol] 3.0 g/dL Critically low 3.4-5.[address] [facility] Comment on above: Performed By: #### JUDY Castro, CMP ####[facility] Ehincqikfz24[address] [place] [address]Dr. Nahed Yañez Albumin/Globulin [Mass ratio] 0.8 {ratio} Normal [facility] Comment on above: Performed By: #### JUDY Castro, CMP ####[facility] Axyoayxcyp[address] [place], [place] [address]Dr. Nahed Yañez ALP [Catalytic activity/Vol] 83 U/L Normal 46-116 [facility] Comment on above: Performed By: #### JUDY Castro, CMP ####[facility] Vhvqndyvpm8737 [place] [address]Dr. Nahed Yañez ALT [Catalytic activity/Vol] 21 U/L Normal 14-59 [facility] Comment on above: Performed By: #### JUDY Castro, CMP ####[facility] Jhukafdnqq1426 [place] [address]Dr. Nahed Yañez Anion gap [Moles/Vol] 14.8 mmol/L Normal [facility] Comment on above: Performed By: #### JUDY Castro, CMP ####[facility] Izthnvdgvi5203 [place] [address]Dr. Nahed Yañez AST [Catalytic activity/Vol] 13 U/L Critically low 15-37 [facility] Comment on above: Performed By: #### JUDY Castro, CMP ####[facility] Ctfgoaruef2405 [place] [address]Dr. Nahed Yañez Bilirubin [Mass/Vol] 0.2 mg/dL Normal 0.2-1.0 [facility] Comment on above: Performed By: #### JUDY Castro CMP ####[facility] Pvmqcozvuf[address] [place], [place] [address]Dr. Nahed Yañez Calcium [Mass/Vol] 9.2 mg/dL Normal 8.5-10.1 [facility] Comment on above: Performed By: #### JUDY Castro, CMP ####[facility] Lnhixgvspx86[address] [place], [place] [address]Dr. Nahed Yañez Chloride [Moles/Vol] 101 mmol/L Normal 98-107 [facility] Comment on above: Performed By: #### JUDY Castro CMP ####[facility] Leeqicdyvz10[address] [place], [place] [address]Dr. Nahed Yañez CO2 [Moles/Vol] 26.5 mmol/L Normal 21.0-32.0 [facility] Comment on above: Performed By: #### JUDY Castro, CMP ####[facility] Bnhkmuullh50[address] [place], [place] [address]Dr. Nahed Yañez Creatinine [Mass/Vol] 1.04 mg/dL Critically high 0.55-1.02 [facility] Comment on above: Performed By: #### JUDY Castro CMP ####[facility] Wwlcvtvacd[address] [place], [place] [address]Dr. Nahed Yañez EGFR-AF PUERTO RICAN >60 Normal >=60 [facility] Comment on above: Performed By: #### JUDY Castro CMP ####[facility] Fpnzcjxcta[address] [place], [place] [address]Dr. Nahed Yañez EGFR-NON AF PUERTO RICAN 54 mL/min/1.73m2 Critically low >=60 [facility] Comment on above: Performed By: #### JUDY Castro CMP ####[facility] Pwwxqrwjgn[address] [place], [place] [address]Dr. Nahed Yañez Globulin (S) [Mass/Vol] 3.6 g/dL Normal [facility] Comment on above: Performed By: #### JUDY Castro, CMP ####[facility] Napflwtfxi8838 [place] [address]Dr. Nahed Yañez Glucose [Mass/Vol] 171 mg/dL Critically high 74-106 [facility] Comment on above: Performed By: #### JUDY Castro, CMP ####[facility] Nlshwnrdwz3371 [place] [address]Dr. Nahed Yañez Potassium [Moles/Vol] 3.3 mmol/L Critically low 3.5-5.1 [facility] Comment on above: Performed By: #### JUDY Castro CMP ####[facility] Xzevehsemw8397 [place] [address]Dr. Nahed Yañez Protein [Mass/Vol] 6.6 g/dL Normal 6.4-8.2 [facility] Comment on above: Performed By: #### JUDY Castro CMP ####[facility] Tzkjpxylfr64[address] [place], [place] [address]Dr. Nahed Yañez Sodium [Moles/Vol] 139 mmol/L Normal 136-145 [facility] Comment on above: Performed By: #### JUDY Castro CMP ####[facility] Abxqvrcxbc10[address] [place], [place] [address]Dr. Nahed Yañez Urea nitrogen [Mass/Vol] 23.0 mg/dL Critically high 7.0-18.0 [facility] Comment on above: Performed By: #### JUDY Castro CMP ####[facility] Qspuycxpev[address] [place], [place] [address]Dr. Nahed Yañez Urea nitrogen/Creatinine [Mass ratio] 22.1 mg/mg Normal [facility] Comment on above: Performed By: #### JUDY Castro, CMP ####[facility] Qmpbtrivyw[address] [place], [place] [address]Dr. Nahed Yañez THEOPHYLLINEon 07-31-2022 THEOPHYLLINE 14.2 ug/mL Normal 10.0-20.0 [facility] Comment on above: Performed By: #### JUDY Castro, CMP ####[facility] Xxdmsyotzp6[address] [place], [place] [address]Dr. Nahed Yañez BLOOD CULTURE ID PANELon A. baumannii Not detected Normal NOT DETECTED [facility] Comment on above: Performed By: #### B CID2 ####[facility] Mjtbpyeuov1587 [place] [address]Dr. Nahed Yañez Bacteriodes fragilis Not detected Normal NOT DETECTED [facility] Comment on above: Performed By: #### B CID2 ####[facility] Mewtvlhhnq2251 [place] [address]Dr. Nahed Yañez BCID CONTROLS PASSED Normal [facility] Comment on above: Performed By: #### B CID2 ####[facility] Ighjfhjvmz8702 [place] [address]Dr. Nahed Yañez BCIDBTHD BLOOD CULTURE BOTTLE INFORMATION Normal [facility] Comment on above: Performed By: #### B CID2 ####[facility] Itfcxxxyab[address] [place], [place] [address]Dr. Nhaed Yañez BCIDHD1 ANTIMICROBIAL RESISTANCE GENES [facility] Comment on above: Performed By: #### B CID2 ####[facility] Ntndmnlwtt[address] [place], [place] [address]Dr. Nahed Yañez BCIDHD2 SEE BELOW [place] [facility] Comment on above: Result Comment: Note : Antimicrobial resitance can occur via multiple mechanisms. A Not Detected result for the [employer] antomicrobial resistance gene assays does not indicate antimicrobial susceptibility. Subculturing is required for species identification and susceptibility testing of isolates. Performed By: #### B CID2 ####[facility] Peytkjimqy[address] [place], [place] [address]Dr. Nahed Yañez BCIDHD3 Positive Normal [facility] Comment on above: Performed By: #### B CID2 ####[facility] Pfoyxefjip0615 [place] [address]Dr. Nahed Yañez BCIDHD4 Negative [place] [facility] Comment on above: Performed By: #### B CID2 ####[facility] Xxtusxlfwq6387 [place] [address]Dr. Nahed Yañez BCIDHD5 YEAST Normal [facility] Comment on above: Performed By: #### B CID2 ####[facility] Fbuxpptsdi7367 [place] [id number]. Nahed Yañez Bottle Set: Set 2 Normal [facility] Comment on above: Performed By: #### B CID2 ####[facility] Wtgcbmtcof4626 [place] [address]Dr. Nahed Yañez Bottle: Pediatric Normal [facility] Comment on above: Performed By: #### B CID2 ####[facility] Ehldhyhwsp2117 [place] [address]Dr. Nahed Yañez C. neoformans/gattii Not detected Normal NOT DETECTED [facility] Comment on above: Performed By: #### B CID2 ####[facility] Gmcilukhfv[address] [place], [place] [address]Dr. Nahed Yañez Sil albicans Not detected Normal NOT DETECTED [facility] Comment on above: Performed By: #### B CID2 ####[facility] Yujfbnkxhk20[address] [place], [place] [address]Dr. Nahed Yañez Sil auris Not detected Normal NOT DETECTED [facility] Comment on above: Performed By: #### B CID2 ####[facility] Danbpifdls7364[address] [place], [place] [address]Dr. Nahed Yañez Sil glabrata Not detected Normal NOT DETECTED [facility] Comment on above: Performed By: #### B CID2 ####[facility] Bopyvdoodn2703 [place] [address]Dr. Nahed Yañez Sil Krusei Not detected Normal NOT DETECTED The [facility] Comment on above: Performed By: #### B CID2 ####[facility] Zrmdwltoal2333 [place] [address]Dr. Nahed Yañez Sil Parapsilosis Not detected Normal NOT DETECTED [facility] Comment on above: Performed By: #### B CID2 ####[facility] Qdnnzwswup[address] [place], [place] [address]Dr. Nahed Yañez Sli Tropicalis Not detected Normal NOT DETECTED [facility] Comment on above: Performed By: #### B CID2 ####[facility] Sswahrltmv39[address] [place], [place] [address]Dr. Nahed Yañez CTX-M Resistant Gene Not Applicable Normal NOT DETECTE D [facility] Comment on above: Performed By: #### B CID2 ####[facility] Ectnqyknhi9[address] [place], [place] [address]Dr. Nahed Otilio E. Cloacae complex Not detected Normal NOT DETECTED [facility] Comment on above: Performed By: #### B CID2 ####[facility] Pjkxarpiop2006[address] [place], [place] [address]Dr. Nahed Yañez E. faecalis Not detected Normal NOT DETECTED [facility] Comment on above: Performed By: #### B CID2 ####[facility] Rhrydzesza265[address] [place], [place] [address]Dr. Nahed Yañez E. faecium Not detected Normal NOT DETECTED The [facility] Comment on above: Performed By: #### B CID2 ####[facility] Caokshsrhj5[address] [place], [place] [address]Dr. Nahed Yañez Enterobacteriaceae Not detected Normal NOT DETECTED [facility] Comment on above: Performed By: #### B CID2 ####[facility] Mdtbcfqfns[address] [place], [place] [address]Dr. Nahed Yañez Escherichia coli Not detected Normal NOT DETECTED [facility] Comment on above: Performed By: #### B CID2 ####[facility] Wjkjbhgacs[address] [place], [place] [address]Dr. Nahed Yañez H. influenzae Not detected Normal NOT DETECTED [facility] Comment on above: Performed By: #### B CID2 ####[facility] Johyiccgev4548[address] [place], [place] [address]Dr. Nahed Yañez IMP Resistant Gene Not Applicable Normal NOT DETECTED [facility] Comment on above: Performed By: #### B CID2 ####[facility] Ndrgxoxzez7325[address] [place], [place] [address]Dr. Nahed Yañez K. oxytoca Not detected Normal NOT DETECTED [facility] Comment on above: Performed By: #### B CID2 ####[facility] Sarfxptyai7989[address] [place], [place] [address]Dr. Nahed Yañez K. pneumoniae Not detected Normal NOT DETECTED [facility] Comment on above: Performed By: #### B CID2 ####[facility] Yvvycrrmql14[address] [place], [place] [address]Dr. Nahed Yañez Klebsiella aerogenes Not detected Normal NOT DETECTED [facility] Comment on above: Performed By: #### B CID2 ####[facility] Gvuuzcdqvy7930 [place] [address]Dr. Nahed Yañez KPC Resistant Gene Not detected Normal NOT DETECTED [facility] Comment on above: Performed By: #### B CID2 ####[facility] Xhokvzjjzn[address] [place], [place] [address]Dr. Nahed Yañez List. monocytogenes Not detected Normal NOT DETECTED [facility] Comment on above: Performed By: #### B CID2 ####[facility] Ugyhojqqeo085[address] [place], [place] [address]Dr. Nahed Yañez Mcr-1 Resistant Gene Not Applicable Normal NOT DETECTE D [facility] Comment on above: Performed By: #### B CID2 ####[facility] Fliirjkgco9207[address] [place], [place] [address]Dr. Nahed Yañez mecA/C Not Applicable Normal NOT DETECTED [facility] Comment on above: Performed By: #### B CID2 ####[facility] Fotwamowwx[address] [place], [place] [address]Dr. Nahed Yañez mecA/C MREJ Not Applicable Normal NOT DETECTED [facility] Comment on above: Performed By: #### B CID2 ####[facility] Sqvmyqqpgh6092[address] [place], [place] [address]Dr. Nahed Yañez N. meningitidis Not detected Normal NOT DETECTED The [facility] Comment on above: Performed By: #### B CID2 ####[facility] Touvdemioy1601[address] [place], [place] [address]Dr. Nahed Yañez NDM Resistant Gene Not Applicable Normal NOT DETECTED [facility] Comment on above: Performed By: #### B CID2 ####[facility] Sxawmjllit3723[address] [place], [place] [address]Dr. Nahed Yañez Oxa-48-like Not Applicable Normal NOT DETECTED [facility] Comment on above: Performed By: #### B CID2 ####[facility] Vaviilqsxa3853 [place] [address]Dr. Nahed Yañez Proteus Not detected Normal NOT DETECTED The [facility] Comment on above: Performed By: #### B CID2 ####[facility] Uuyalsdgbi7965 [place] [address]Dr. Nahed Yañez Pseud. aeruginosa Not detected Normal NOT DETECTED [facility] Comment on above: Performed By: #### B CID2 ####[facility] Wxufieglpb99[address] [place], [place] [address]Dr. Nahed Yañez S. maltophilia Not detected Normal NOT DETECTED [facility] Comment on above: Performed By: #### B CID2 ####[facility] Digvvmcucz8592[address] [place], [place] [address]Dr. Nahed Yañez Salmonella Not detected Normal NOT DETECTED [facility] Comment on above: Performed By: #### B CID2 ####[facility] Peowasxbnh8485[address] [place], [place] [address]Dr. aNhed Yañez Seratia marcescens Not detected Normal NOT DETECTED [facility] Comment on above: Performed By: #### B CID2 ####[facility] Qykkqrbgzc8523[address] [place], [place] [address]Dr. Nahed Yañez Site: R AC Normal [facility] Comment on above: Performed By: #### B CID2 ####[facility] Edoslmkqee4604[address] [place], [place] [address]Dr. Nahed Yañez Staph. aureus Not detected Normal NOT DETECTED [facility] Comment on above: Performed By: #### B CID2 ####[facility] Yseqoorzld7995[address] [place], [place] [address]Dr. Nahed Yañez Staph. epidermidis Not detected Normal NOT DETECTED [facility] Comment on above: Performed By: #### B CID2 ####[facility] Yvprdqrsny4035[address] [place], [place] [address]Dr. Nahed Yañez Staph. lugdunensis Not detected Normal NOT DETECTED [facility] Comment on above: Performed By: #### B CID2 ####[facility] Isscxwbrak3569[address] [place], [place] [address]Dr. Nahed Yañez Staphylococcus Detected Critically abnormal NOT DETECTED [facility] Comment on above: Performed By: #### B CID2 ####[facility] Yoloagntfs[address] [place], [place] [address]Dr. Nahed Yañez Strep. agalactiae Not detected Normal NOT DETECTED [facility] Comment on above: Performed By: #### B CID2 ####[facility] Tqwzgezmgq[address] [place], [place] [address]Dr. Nahed Yañez Strep. pneumoniae Not detected Normal NOT DETECTED [facility] Comment on above: Performed By: #### B CID2 ####[facility] Bbifhfwsar23[address] [place], [place] [address]Dr. Nahed Yañez Strep. pyogenes Not detected Normal NOT DETECTED [facility] Comment on above: Performed By: #### B CID2 ####[facility] Rhdluctfnu6168[address] [place], [place] [address]Dr. Nahed Yañez Streptococcus Not detected Normal NOT DETECTED [facility] Comment on above: Performed By: #### B CID2 ####[facility] Qxxrzpynrr28[address] [place], [place] [address]Dr. Nahed Yañez Tucker/B Resist. Gene Not detected Normal NOT DETECTED [facility] Comment on above: Performed By: #### B CID2 ####[facility] Pniylggckg4[address] [place], [place] [address]Dr. Nahed Yañez VIM Resistant Gene Not Applicable Normal NOT DETECTED [facility] Comment on above: Performed By: #### B CID2 ####[facility] Fnnjxijzpp[address] [place], [place] [address]Dr. Nahed Yañez CARDIAC FRANCISCO 3-6on 3 CK [Catalytic activity/Vol] 25 U/L Critically low 26-192 [facility] Comment on above: Performed By: #### C MREP ####[facility] Rpapcsyqai8056[address] [place], [place] [address]Dr. Nahed Yañez CK.MB [Mass/Vol] ng/mL Normal <=3.60 [facility] Comment on above: Performed By: #### C MREP ####[facility] Pwfmgcxuvq1169 [place] [id number]. Nahed Yañez HSTROP 35.8 pg/mL Normal 4.0-51.3 [facility] Comment on above: Result Comment: CUT- OFF POINTS HAVE BEEN ESTABLISHED BASED ON THE FOURTH UNIVERSAL DEFINITIONS OF MYOCARDIALINFARCTION. THE UPPER REFERENCE LIMIT (URL) OF TROPONIN, DEFINED THE 99TH PERCENTILE OFcTnI DISTRIBUTION IN A REFERENCE POPULATION, HAS BEEN CONFIRMED THE DECISION THRESHOLDFOR [place] DIAGNOSIS. Performed By: #### C MREP ####[facility] Jqrtniohxf5680 [place] [address]Dr. Nahed Otilio CK [Catalytic activity/Vol] 28 U/L Normal 26-192 [facility] Comment on above: Performed By: #### C MREP ####[facility] Mckdzpoygf[address] [place], [place] [address]Dr. Rosemarieashley Yañez CK.MB [Mass/Vol] ng/mL Normal <=3.60 [facility] Comment on above: Performed By: #### C MREP ####[facility] Xfeznlxhxx[address] [place], [place] [address]Dr. Nahed Otilio HSTROP 36.8 pg/mL Normal 4.0-51.3 [facility] Comment on above: Result Comment: CUT- OFF POINTS HAVE BEEN ESTABLISHED BASED ON THE FOURTH UNIVERSAL DEFINITIONS OF MYOCARDIALINFARCTION. THE UPPER REFERENCE LIMIT (URL) OF TROPONIN, DEFINED THE 99TH PERCENTILE OFcTnI DISTRIBUTION IN A REFERENCE POPULATION, HAS BEEN CONFIRMED THE DECISION THRESHOLDFOR [place] DIAGNOSIS. Performed By: #### C MREP ####[facility] Tgklpnmsjk439[address] [place], [place] [address]Dr. Rosemarieashley Otilio CBC AUTO DIFFon 07-30-2022 BASO # 0.0 103/ul Normal 0.0-0.1 [facility] Comment on above: Performed By: #### C BC ####[facility] Gwkjzfcugk5904 [place] [phone]. Nahed Yañez Basophils/100 WBC (Bld) 0.1 % Critically low 0.2-2.0 [facility] Comment on above: Performed By: #### C BC ####[facility] Wxtytfibaq3963 [place] [id number]. Nahed Yañez EO # 0.0 103/ul Normal 0.0-0.7 [facility] Comment on above: Performed By: #### C BC ####[facility] Bvwtbwwuvk6306 [place] [id number]. Nahed Yañez Eosinophils/100 WBC (Bld) 0.0 % Critically low 0.9-7.0 [facility] Comment on above: Performed By: #### C BC ####[facility] Hyhgccotre8949 [place] [address]Dr. Nahed Yañez Erythrocyte distribution width (RBC) [Ratio] 14.4 % Normal 11.0-15.0 [facility] Comment on above: Performed By: #### C BC ####[facility] Zqnpnewjcs[address] [place], [place] [address]Dr. Nahed Yañez Hematocrit (Bld) [Volume fraction] 37.7 % Normal 36.0-48.0 [facility] Comment on above: Performed By: #### C BC ####[facility] Cqrrpjlnkl[address] [place], [place] [address]Dr. Nahed Yañez Hemoglobin (Bld) [Mass/Vol] 12.1 g/dL Normal 12.0-16.0 [facility] Comment on above: Performed By: #### C BC ####[facility] Outfroqflo38[address] [place], [place] [address]Dr. Nahed Yañez IG # 0.07 10e3/ul Critically high 0.00-0.03 [facility] Comment on above: Performed By: #### C BC ####[facility] Omqoucemds[address] [place], [place] [address]Dr. Nahed Yañez IG % 0.5 % Normal 0.0-0.5 [facility] Comment on above: Performed By: #### C BC ####[facility] Cngpsapjtw[address] [place], [place] [address]Dr. Rosemarieashley Yañez LYMPH # 1.0 103/ul Critically low 1.2-3.8 [facility] Comment on above: Performed By: #### C BC ####[facility] Rryrlmcrpx2694 [place] [phone]. Nahed Yañez Lymphocytes/100 WBC (Bld) 7.6 % Critically low 20.5-60.0 [facility] Comment on above: Performed By: #### C BC ####[facility] Htqdirfnus9123 [place] [phone]. Nahed Yañez MANUAL DIFF REQ NO Normal [facility] Comment on above: Performed By: #### C BC ####[facility] Vtmpkqxhmi4083 [place] [phone]. Nahed Yañez MCH (RBC) [Entitic mass] 28.8 pg Normal 26.7-34.0 [facility] Comment on above: Performed By: #### C BC ####[facility] Pcgkjtywjq3693 [place] [address]Dr. Nahed Yañez MCHC (RBC) [Mass/Vol] 32.1 g/dL Normal 29.9-35.2 [facility] Comment on above: Performed By: #### C BC ####[facility] Wsttdvbosz5509 [place] [phone]. Nahed Yañez MCV (RBC) [Entitic vol] 89.8 fL Normal 81.0-99.0 [facility] Comment on above: Performed By: #### C BC ####[facility] Exoocpdjgl3190 [place] [phone]. Nahed Yañez MONO # 0.2 103/ul Critically low 0.3-0.8 [facility], Inc Comment on above: Performed By: #### C BC ####[facility] [address] [place] [id number]. Nahed Yañez Monocytes/100 WBC (Bld) 1.5 % Critically low 1.7-12.0 [facility] Comment on above: Performed By: #### C BC ####[facility] Zrrxpkfeem[address] [place] [phone]. Nahed Yañez NEUT # 11.7 103/ul Critically high 1.4-6.5 [facility] Comment on above: Performed By: #### C BC ####[facility] Obayecxmlp[address] [place] [phone]. Nahed Yañez Neutrophils/100 WBC (Bld) 90.3 % Critically high 43.0-75.0 [facility] Comment on above: Performed By: #### C BC ####[facility] Vobtteugug[address] [place] [phone]. Nahed Yañez Platelet mean volume (Bld) [Entitic vol] 9.9 fL Normal 9.5-13.5 [facility] Comment on above: Performed By: #### C BC ####[facility] Ifbknkdrug97[address] [place] [phone]. Nahed Yañez PLT 319 103/ul Normal 150-450 [facility] Comment on above: Performed By: #### C BC ####[facility] Tpikofkgcp[address] [place], [place] [address]Dr. Nahed Yañez RBC 4.20 106/ul Normal 4.20-5.40 [facility] Comment on above: Performed By: #### C BC ####[facility] Lxihwfqefv[address] [place] [phone]. Nahed Yañez WBC 13.0 103/ul Critically high 4.0-11.0 [facility] Comment on above: Performed By: #### C BC ####[facility] Ohhzklvzjj4[address] [place] [phone]. Nahed Yañez CULTURE BLOODon 07-30-2022 Microscopic examination of blood, culture Culture Observations: NO GROWTH AT 5 DAYS. Normal [facility] Comment on above: Performed By: #### B LDCX1 ####[facility] Xt[address] [place], [place] [address]Dr. Nahed Yañez CULTURE SPUTUMon 07-30-2022 CULTURE SPUTUM Culture Observations : NORMAL RESPIRATORY MIGUEL. Normal [facility] Comment on above: Performed By: #### S PUTCX ####[facility] Xkvoyhwids[address] [place], [place] [address]Dr. Nahed Yañez CULTURE URINEon 07-30-2022 CULTURE URINE Culture Observations : MODERATE GROWTH OF MIXED GENITAL MIGUEL. NO POTENTIAL PATHOGENS SEEN. Normal [facility] Comment on above: Performed By: #### U RCX ####[facility] Cxdrkcvani47[address] [place], [place] [address]Dr. Nahed Otilio Covid-19 PCR (CVDTB)on 07-12 SARS-CoV-2 (COVID-19) RNA MIRNA+probe Ql (Unsp spec) Not detected Normal NOT DETECTED [facility] Comment on above: Result [...] for this test is supported by the [place] of Health and Human Service's declaration that [...] be used). Performed By: #### C VDTB ####[facility] Qziwqzdrpz[address] [place], [place] [address]Dr. Rosemarieashley Yañez ER URINE PROFILEon 3 Bilirubin Ql (U) Negative Normal NEGATIVE [facility] Comment on above: Performed By: #### YARELIS DOVE ####[facility] Kymcmpcfrf86[address] [place], [place] [address]Dr. Nahed Yañez Clarity (U) CLEAR Normal CLEAR [facility] Comment on above: Performed By: #### YARELIS DOVE ####[facility] Gpdqlyncrj[address] [place], [place] [address]Dr. Nahed Yañez Color (U) LT. YELLOW Normal YELLOW [facility] Comment on above: Performed By: #### YARELIS DOVE ####[facility] F[address]wvre[address] [place] [address]Dr. Nahed AGEED A micrscopic examination will be performed if indicated. Normal [facility] Comment on above: Performed By: #### YARELIS DOVE ####[facility] Xmvgzplfxd060[address] [place] [address]Dr. Nahed Yañez Glucose Ql (U) 500 mg/dl Abnormal NEGATIVE [facility] Comment on above: Performed By: #### YARELIS DOVE ####[facility] Xyqcpgrvgb[address] [place] [address]Dr. Nahed Yañez Hemoglobin Ql (U) Negative Normal NEGATIVE [facility] Comment on above: Performed By: #### YARELIS DOVE ####[facility] Gjoipdclun[address] [place], [place] [address]Dr. Nahed Yañez Ketones Ql (U) Negative Normal NEGATIVE [facility] Comment on above: Performed By: #### YARELIS DOVE ####[facility] Yrzyjglnju[address] [place], [place] [address]Dr. Nahed Yañez LEUKOCYTES TRACE Abnormal NEGATIVE [facility] Comment on above: Performed By: #### YARELIS DOVE ####[facility] Vvbbigfsqf2622[address] [place], [place] [address]Dr. Nahed Yañez Nitrite Ql (U) Negative Normal NEGATIVE [facility] Comment on above: Performed By: #### YARELIS DOVE ####[facility] Umciktwqso7024[address] [place], [place] [address]Dr. Nahed Yañez pH (U) 6.0 [pH] Normal 5-9 [facility] Comment on above: Performed By: #### YARELIS DOVE ####[facility] Nurauzmrep[address] [place], [place] [address]Dr. Nahed Yañez SPEC GRAVITY >=1.030 Abnormal 1.005-<=1.02 5 [facility] Comment on above: Performed By: #### YARELIS DOVE ####[facility] Kmwawqapvs[address] [place], [place] [address]Dr. Nahed Yañez UA PROTEIN Negative Normal NEGATIVE/ TRACE [facility] Comment on above: Performed By: #### YARELIS DOVE ####[facility] Svenuywjow[address] [place], [place] [address]Dr. Nahed Yañez UR MICRO IND INDICATED Normal [facility] Comment on above: Performed By: #### YARELIS DOVE ####[facility] Aehfwgxrpq466[address] [place], [place] [address]Dr. Nahed Yañez Urobilinogen Qn (U) 0.2 {Alem'U}/dL Normal 0.2 - 1. 0 [facility] Comment on above: Performed By: #### YARELIS DOVE ####[facility] Tdcmxhcyya[address] [place], [place] [address]Dr. Nahed Yañez INFLUENZA A AND B AGon 07-30 INFLUANEGH SEE BELOW Normal [facility] Comment on above: Result Comment: Nega tive for Flu A protein angiten. Infection due to Flu A cannot be ruled out. Flu A angiten in the sample may be below the detection limit of the test. Performed By: #### I NFLUAB ####[facility] Zbcajfwfuw[address] [place], [place] [address]Dr. Nahed Yañez INFLUBNEGH SEE BELOW Normal [facility] Comment on above: Result Comment: Nega tive for Flu B protein antigen. Infection due to Flu B cannot be ruled out. Flu B antigen in the sample may be below the detection limit of the test. Performed By: #### I NFLUAB ####[facility] Erguyfievs[address] [place], [place] [address]Dr. Rosemarieashley Yañez INFLUENZA A AG Negative Normal NEGATIVE SEE COMMENT [facility] Comment on above: Performed By: #### I NFLUAB ####[facility] Lzxklpqret32[address] [place], [place] [address]Dr. Nahed Yañez INFLUENZA B AG Negative Normal NEGATIVE SEE COMMENT [facility] Comment on above: Performed By: #### I NFLUAB ####[facility] Uzssbgicxm64[address] [place], [place] [address]Dr. Nahed Yañez LACTATE/LACTIC ACIDon 2022 Lactate [Moles/Vol] 2.5 mmol/L Critically high 0.4-2.0 [facility] Comment on above: Performed By: #### L ACT ####[facility] Uzphkqxvmo[address] [place] [address]Dr. Nahed Yañez Lactate [Moles/Vol] 3.3 mmol/L Critically high 0.4-2.0 [facility] Comment on above: Performed By: #### L ACT ####[facility] Jjjljrbufi8[address] [place], [place] [address]Dr. Nahed Yañez Lactate [Moles/Vol] 2.7 mmol/L Critically high 0.4-2.0 [facility] Comment on above: Performed By: #### L ACT ####[facility] Kkzeuggiyx9[address] [place], [place] [address]Dr. Nahed Yañez Lactate [Moles/Vol] 2.8 mmol/L Critically high 0.4-2.0 [facility] Comment on above: Performed By: #### L ACT ####[facility] Hbgtekrdeb9[address] [place], [place] [address]Dr. Nahed Otilio MAGNESIUMon 07-30-2022 Magnesium [Mass/Vol] 1.9 mg/dL Normal 1.8-2.4 [facility] Comment on above: Performed By: #### M G, CMP ####[facility] Hpqrkgpdph8[address] [place], [place] [address]Dr. Nahed Yañez POINT OF CARE GLUCOSEon 07-12 Glucose [Mass/Vol] 220 mg/dL Critically high 74-106 [facility] Comment on above: Performed By: #### P OCGLUC ####[facility] Nzgawnozel[address] [place], [place] [address]Dr. Rosemarieashley Yañez Glucose [Mass/Vol] 162 mg/dL Critically high 74-106 [facility] Comment on above: Result Comment: Kaycee deonte Meter Performed By: #### P OCGLUC ####[facility] Uctbltzspg17[address] [place], [place] [address]Dr. Nahed Yañez PROF 14(COMP METB)on 03-19-2 023 Albumin [Mass/Vol] 2.9 g/dL Critically low 3.4-5.[address] [facility] Comment on above: Performed By: #### Pablo Moore, CMP ####[facility] [address]wt[address]rihsf[address] [place] [address]Dr. Nahed Yañez Albumin/Globulin [Mass ratio] 0.8 {ratio} Normal [facility] Comment on above: Performed By: #### Pablo Moore, CMP ####[facility] Wwfoirlmse36[address] [place] [address]Dr. Nahed Yañez ALP [Catalytic activity/Vol] 94 U/L Normal 46-116 [facility] Comment on above: Performed By: #### Pablo Moore, CMP ####[facility] Hrujfjomou[address] [place], [place] [address]Dr. Nahed Yañez ALT [Catalytic activity/Vol] 22 U/L Normal 14-59 [facility] Comment on above: Performed By: #### Pablo Moore, CMP ####[facility] Rimmgyannc18[address] [place] [address]Dr. Nahed Yañez Anion gap [Moles/Vol] 12.4 mmol/L Normal [facility] Comment on above: Performed By: #### Pablo Moore, CMP ####[facility] Sydnhekhdl5[address] [place], [place] [address]Dr. Nahed Yañez AST [Catalytic activity/Vol] 18 U/L Normal 15-37 [facility] Comment on above: Performed By: #### Pablo Moore, CMP ####[facility] Vwiaybngji3[address] [place] [address]Dr. Nahed Yañez Bilirubin [Mass/Vol] 0.1 mg/dL Critically low 0.2-1.0 [facility] Comment on above: Performed By: #### Pablo Moore, CMP ####[facility] Xugcykpunp[address] [place], [place] [address]Dr. Nahed Yañez Calcium [Mass/Vol] 8.9 mg/dL Normal 8.5-10.1 [facility] Comment on above: Performed By: #### Pablo Moore, CMP ####[facility] Eidccbbgib[address] [place], [place] [address]Dr. Nahed Yañez Chloride [Moles/Vol] 99 mmol/L Normal 98-107 [facility] Comment on above: Performed By: #### Pablo Moore, CMP ####[facility] Rxtdhlaspm[address] [place], [place] [address]Dr. Nahed Yañez CO2 [Moles/Vol] 26.0 mmol/L Normal 21.0-32.0 [facility] Comment on above: Performed By: #### Pablo Moore, CMP ####[facility] Vrghlkuvng27[address] [place], [place] [address]Dr. Nahed Otilio Creatinine [Mass/Vol] 1.16 mg/dL Critically high 0.55-1.02 [facility] Comment on above: Performed By: #### Pablo Moore, CMP ####[facility] Ymwqhilgkl9[address] [place], [place] [address]Dr. Nahed Otilio EGFR-AF PUERTO RICAN 58 mL/min/1.73m2 Critically low >=60 [facility] Comment on above: Performed By: #### Pablo Moore, CMP ####[facility] Tochjzchhg94[address] [place], [place] [address]Dr. Nahed Otilio EGFR-NON AF PUERTO RICAN 47 mL/min/1.73m2 Critically low >=60 [facility] Comment on above: Performed By: #### Pablo Moore, CMP ####[facility] Lnznvpmhhd6174[address] [place], [place] [address]Dr. Rosemarieashley Yañez Globulin (S) [Mass/Vol] 3.7 g/dL Normal [facility] Comment on above: Performed By: #### Pablo Moore, CMP ####[facility] Tzfyawbtez4[address] [place], [place] [address]Dr. Rosemarieashley Otilio Glucose [Mass/Vol] 267 mg/dL Critically high 74-106 [facility] Comment on above: Performed By: #### Pablo Moore, CMP ####[facility] Mjsrmrjwok3[address] [place], [place] [address]Dr. Nahed Yañez Potassium [Moles/Vol] 4.4 mmol/L Normal 3.5-5.1 [facility] Comment on above: Performed By: #### Pablo Moore, CMP ####[facility] Qqstuuvwao7[address] [place], [place] [address]Dr. Rosemarieashley Yañez Protein [Mass/Vol] 6.6 g/dL Normal 6.4-8.2 [facility] Comment on above: Performed By: #### M Teresa, CMP ####[facility] Hpqqfacgta5867[address] [place], [place] [address]Dr. Nahed Yañez Sodium [Moles/Vol] 133 mmol/L Critically low 136-145 [facility] Comment on above: Performed By: #### M Teresa, CMP ####[facility] Vsdniczehk7[address] [place], [place] [address]Dr. Nahed Yañez Urea nitrogen [Mass/Vol] 33.0 mg/dL Critically high 7.0-18.0 [facility] Comment on above: Performed By: #### Pablo Moore, CMP ####[facility] Mxiyjzaost8[address] [place], [place] [address]Dr. Nahed Yañez Urea nitrogen/Creatinine [Mass ratio] 28.4 mg/mg Normal [facility] Comment on above: Performed By: #### Pablo Moore, CMP ####[facility] Ppjccwqbvj[address] [place], [place] [address]Dr. Nahed Yañez SPUTUM GRAM STAINon 07-31-19 COMMENTS Normal [facility] Comment on above: Performed By: #### S PUTGS ####[facility] Skdymnjupk[address] [place], [place] [address]Dr. Nahed Yañez DIPHTHEROIDS Normal [facility] Comment on above: Performed By: #### S PUTGS ####[facility] Jtizqlhvne[address] [place], [place] [address]Dr. Nahed Yañez EPITHELIALS <25 Normal [facility] Comment on above: Performed By: #### S PUTGS ####[facility] Jospepoznc7834[address] [place], [place] [address]Dr. Nahed Yañez FUNGAL ELEMENTS Normal [facility] Comment on above: Performed By: #### S PUTGS ####[facility] Wjbsbodblq[address] [place], [place] [address]Dr. Nahed Yañez GRAM NEG BACILLI Normal [facility] Comment on above: Performed By: #### S PUTGS ####[facility] U[address]vkfgidf[address] [place] [address]Dr. Nahed Yañez GRAM NEG DIPPLOCOCCI Normal [facility] Comment on above: Performed By: #### S PUTGS ####[facility] Vhvfwuocnl4286 [place] [address]Dr. Nahed Yañez GRAM POS BACILLI FEW Normal [facility] Comment on above: Performed By: #### S PUTGS ####[facility] Rycancuinn[address] [place] [address]Dr. Nahed Yañez GRAM POSITIVE COCCI FEW Normal [facility] Comment on above: Performed By: #### S PUTGS ####[facility] Qdbbduawik[address] [place], [place] [address]Dr. Nahed Yañez WBC (Bld) [#/Vol] 10*3/uL Normal [facility] Comment on above: Performed By: #### S PUTGS ####[facility] Jzgohefncd4[address] [place], [place] [address]Dr. Nahed Yañez URINE MICROSCOPIC ONLYon BACTERIA SMALL Abnormal NONE SEEN [facility] Comment on above: Performed By: #### YARELIS DOVE ####[facility] Vwcmikgxfp[address] [place], [place] [address]Dr. Nahed Yañez Bacteria identified Cx Nom (U) INDICATED Normal [facility] Comment on above: Performed By: #### YARELIS DOVE ####[facility] Krquguahhq[address] [place], [place] [address]Dr. Nahed Yañez CAST NONE SEEN Normal NONE SEEN [facility] Comment on above: Performed By: #### NUNU DOVERO ####[facility] Pkaicfdhhk[address] [place], [place] [address]Dr. Nahed Yañez Crystals LM Nom (Urine sed) NONE SEEN Normal NONE SEEN [facility] Comment on above: Performed By: #### NUNU DOVERO ####[facility] Ulhzuwfeaz67[address] [place] [address]Dr. Nahed Yañez Epithelial cells LM Ql (Urine sed) FEW Abnormal NONE SEEN /RARE [facility] Comment on above: Performed By: #### Isidoro ALCARAZ UMICRO ####[facility] Aohmatspga85[address] [place] [address]Dr. Nahed Yañez MUCOUS TRACE Abnormal NONE SEEN [facility] Comment on above: Performed By: #### NUNU DOVERO ####[facility] Notklpvbqk4[address] [place] [address]Dr. Nhaed Yañez RBC 0-2 Normal 0-2 [facility] Comment on above: Performed By: #### NUNU DOVERO ####[facility] Srlhzkzytz55[address] [place] [address]Dr. Nahed Yañez WBC 0-2 Abnormal NONE SEEN [facility] Comment on above: Performed By: #### NUNU DOVERO ####[facility] Nstsodmhwo1484 [place] [address]Dr. Nahed Yañez XR CHEST 1 Von 07-30-2022 XR CHEST 1 V Normal [facility] CARDIAC FRANCISCO ADMITon 023 CK [Catalytic activity/Vol] 59 U/L Normal 26-192 [facility] Comment on above: Performed By: #### BLADIMIR SINGH ####[facility] Dctpvizowd[address] [place], [place] [address]Dr. Nahed Yañez CK.MB [Mass/Vol] 0.59 ng/mL Normal <=3.60 [facility] Comment on above: Performed By: #### BLADIMIR SINGH ####[facility] Suemnxkriu[address] [place], [place] [address]Dr. Nahed Otilio HSTROP 40.7 pg/mL Normal 4.0-51.3 [facility] Comment on above: Result Comment: CUT- OFF POINTS HAVE BEEN ESTABLISHED BASED ON THE FOURTH UNIVERSAL DEFINITIONS OF MYOCARDIALINFARCTION. THE UPPER REFERENCE LIMIT (URL) OF TROPONIN, DEFINED THE 99TH PERCENTILE OFcTnI DISTRIBUTION IN A REFERENCE POPULATION, HAS BEEN CONFIRMED THE DECISION THRESHOLDFOR [place] DIAGNOSIS. Performed By: #### BLADIMIR SINGH ####[facility] Novignddok86[address] [place], [place] [address]Dr. Nahed Yañez ANDRE 89 ng/mL Critically high 9-82 [facility] Comment on above: Performed By: #### C MADM, BMP ####[facility] Eyigxdgogx7674[address] [place], [place] [address]Dr. Nahed Yañez CBC AUTO DIFFon 07-29-2022 BASO # 0.0 103/ul Normal 0.0-0.1 [facility] Comment on above: Performed By: #### C BC ####[facility] Jdkhcxkyzm[address] [place], [place] [address]Dr. Nahed Yañez Basophils/100 WBC (Bld) 0.1 % Critically low 0.2-2.0 [facility] Comment on above: Performed By: #### C BC ####[facility] Tlopagfnaz[address] [place], [place] [address]Dr. Nahed Yañez EO # 0.0 103/ul Normal 0.0-0.7 [facility] Comment on above: Performed By: #### C BC ####[facility] Uwxhsqorah65[address] [place], [place] [address]Dr. Nahed Yañez Eosinophils/100 WBC (Bld) 0.0 % Critically low 0.9-7.0 [facility] Comment on above: Performed By: #### C BC ####[facility] Hfljpomfps[address] [place], [place] [address]Dr. Nahed Yañez Erythrocyte distribution width (RBC) [Ratio] 14.5 % Normal 11.0-15.0 [facility] Comment on above: Performed By: #### C BC ####[facility] Kvipjcvynm[address] [place], [place] [address]Dr. Nahed Yañez Hematocrit (Bld) [Volume fraction] 42.1 % Normal 36.0-48.0 [facility] Comment on above: Performed By: #### C BC ####[facility] Ktfyjmesoo46[address] [place], [place] [address]Dr. Nahed Yañez Hemoglobin (Bld) [Mass/Vol] 13.4 g/dL Normal 12.0-16.0 [facility] Comment on above: Performed By: #### C BC ####[facility] B[address]sh[address]wuwz[address] [place] [id number]. Nahed Otilio IG # 0.07 10e3/ul Critically high 0.00-0.03 [facility] Comment on above: Performed By: #### C BC ####[facility] Tcjxklkzko40[address] [place] [address]Dr. Nahed Yañez IG % 0.5 % Normal 0.0-0.5 [facility] Comment on above: Performed By: #### C BC ####[facility] Lsgcbmbmvk380[address] [place] [address]DrShaun Yañez LYMPH # 3.2 103/ul Normal 1.2-3.8 [facility] Comment on above: Performed By: #### C BC ####[facility] Shwsdrwlpx[address] [place], [place] [address]Dr. Nahed Yañez Lymphocytes/100 WBC (Bld) 21.2 % Normal 20.5-60.0 [facility] Comment on above: Performed By: #### C BC ####[facility] Ilwdppllwo[address] [place], [place] [address]DrShaun Rosemarieashley Yañez MANUAL DIFF REQ NO Normal [facility] Comment on above: Performed By: #### C BC ####[facility] Ttcaouqqie[address]64 [place] [address]DrShaun Nahed Yañez MCH (RBC) [Entitic mass] 28.1 pg Normal 26.7-34.0 [facility] Comment on above: Performed By: #### C BC ####[facility] Fqqxipkvuf[address]109 [place] [address]DrShaun Nahed Otilio MCHC (RBC) [Mass/Vol] 31.8 g/dL Normal 29.9-35.2 [facility] Comment on above: Performed By: #### C BC ####[facility] Frpwpxxkhs6252 [place] [address]DrShaun Nahed Otilio MCV (RBC) [Entitic vol] 88.3 fL Normal 81.0-99.0 [facility] Comment on above: Performed By: #### C BC ####[facility] Geuaedpeii[address] [place], [place] [address]Dr. Rosemarieashley Otilio MONO # 1.0 103/ul Critically high 0.3-0.8 [facility] Comment on above: Performed By: #### C BC ####[facility] Kdwuhghryj6[address] [place] [address]Dr. Nahed Yañez Monocytes/100 WBC (Bld) 6.3 % Normal 1.7-12.0 [facility] Comment on above: Performed By: #### C BC ####[facility] Kdfomjsdpv6563 [place] [address]Dr. Nahed Yañez NEUT # 11.0 103/ul Critically high 1.4-6.5 [facility] Comment on above: Performed By: #### C BC ####[facility] [address]imkzukoj[address] [place] [address]Dr. Nahed Yañez Neutrophils/100 WBC (Bld) 71.9 % Normal 43.0-75.0 [facility] Comment on above: Performed By: #### C BC ####[facility] Dasfsgcilm[address] [place], [place] [address]Dr. Nahed Otilio Platelet mean volume (Bld) [Entitic vol] 9.9 fL Normal 9.5-13.5 [facility] Comment on above: Performed By: #### C BC ####[facility] Cimqzqflac[address] [place] [address]Dr. Nahed Otilio PLT 385 103/ul Normal 150-450 [facility] Comment on above: Performed By: #### C BC ####[facility] Toyisjgtgd[address] [place], [place] [address]Dr. Nahed Otilio RBC 4.77 106/ul Normal 4.20-5.40 [facility] Comment on above: Performed By: #### C BC ####[facility] Qenuqttpgv3188 [place] [address]Dr. Nahed Yañez WBC 15.3 103/ul Critically high 4.0-11.0 [facility] Comment on above: Performed By: #### C BC ####[facility] Dlxdcvudgv9[address] [place] [address]Dr. Nahed Yañez PROF CHEM 8 (BAS METB)on Anion gap [Moles/Vol] 13.4 mmol/L Normal [facility] Comment on above: Performed By: #### Isabell AGRAWAL, BMP ####[facility] Tlqciworue[address] [place] [address]Dr. Nahed Yañez Calcium [Mass/Vol] 9.5 mg/dL Normal 8.5-10.1 [facility] Comment on above: Performed By: #### Isabell AGRAWAL, BMP ####[facility] Wcjdjyxwti60[address] [place] [address]Dr. Nahed Yañez Chloride [Moles/Vol] 101 mmol/L Normal 98-107 [facility] Comment on above: Performed By: #### Isabell AGRAWAL, BMP ####[facility] Ngaqaskgyi13[address] [place] [address]Dr. Nahed Yañez CO2 [Moles/Vol] 27.9 mmol/L Normal 21.0-32.0 [facility] Comment on above: Performed By: #### Isabell AGRAWAL, BMP ####[facility] Uyelstsnct[address] [place] [address]Dr. Nahed Yañez Creatinine [Mass/Vol] 0.91 mg/dL Normal 0.55-1.02 [facility] Comment on above: Performed By: #### Isabell AGRAWAL, BMP ####[facility] Ptmiadravg2536 [place] [address]Dr. Nahed Yañez EGFR-AF PUERTO RICAN >60 Normal >=60 [facility] Comment on above: Performed By: #### Isabell AGRAWAL, BMP ####[facility] [address]odfpbyivl[address] [place] [id number]. Nahed Yañez EGFR-NON AF PUERTO RICAN >60 Normal >=60 [facility] Comment on above: Performed By: #### Isabell AGRAWAL, BMP ####[facility] Tcovimynvl5[address] [place] [address]Dr. Nahed Yañez Glucose [Mass/Vol] 100 mg/dL Normal 74-106 [facility] [facility] Comment on above: Performed By: #### Isabell AGRAWAL, BMP ####[facility] [address] [place] [address]Dr. Nahed Yañez Potassium [Moles/Vol] 4.3 mmol/L Normal 3.5-5.1 [facility] Comment on above: Result Comment: samp le slightly hemolized Performed By: #### C NGHIA, BMP ####[facility] Rmqbumgtvv[address] [place], [place] [address]Dr. Nahed Yañez Sodium [Moles/Vol] 138 mmol/L Normal 136-145 [facility] Comment on above: Performed By: #### C NGHIA, BMP ####[facility] Atjdihqshr[address] [place], [place] [address]Dr. Nahed Yañez Urea nitrogen [Mass/Vol] 34.0 mg/dL Critically high 7.0-18.0 [facility] Comment on above: Performed By: #### C NGHIA, BMP ####[facility] Newjmdrxbv20[address] [place], [place] [address]Dr. Nahed Yañez Urea nitrogen/Creatinine [Mass ratio] 37.4 mg/mg Normal [facility] Comment on above: Performed By: #### C NGHIA, BMP ####[facility] Ocsuahzekq[address] [place], [place] [address]Dr. Nahed Yañez BNPon 07-28-2022 Natriuretic peptide B (Bld) [Mass/Vol] 249.0 pg/mL Normal <=900.0 [facility] Comment on above: Performed By: #### B TOOL HONING MACHINE SET UP OPERATOR ####[facility] Idnzvlugtd[address] [place], [place] [address]Dr. Nahed Yañez CBC AUTO DIFFon 07-28-2022 BASO # 0.0 103/ul Normal 0.0-0.1 [facility] Comment on above: Performed By: #### C BC ####[facility] Cxtokdcrsr[address] [place], [place] [address]Dr. Nahed Yañez Basophils/100 WBC (Bld) 0.1 % Critically low 0.2-2.0 [facility] Comment on above: Performed By: #### C BC ####[facility] Lxdirsxbnw[address] [place], [place] [address]Dr. Nahed Yañez EO # 0.0 103/ul Normal 0.0-0.7 [facility] Comment on above: Performed By: #### C BC ####[facility] Rnf[address]icya[address] [place] [address]Dr. Nahed Yañez Eosinophils/100 WBC (Bld) 0.0 % Critically low 0.9-7.0 [facility] Comment on above: Performed By: #### C BC ####[facility] Ejhiatscmo[address] [place], [place] [address]Dr. Nahed Yañez Erythrocyte distribution width (RBC) [Ratio] 14.3 % Normal 11.0-15.0 [facility] Comment on above: Performed By: #### C BC ####[facility] Rnfiarmocu[address] [place], [place] [address]Dr. Nahed Yañez Hematocrit (Bld) [Volume fraction] 38.7 % Normal 36.0-48.0 [facility] Comment on above: Performed By: #### C BC ####[facility] Qywfcotdyy[address] [place], [place] [address]Dr. Nahed Yañez Hemoglobin (Bld) [Mass/Vol] 12.2 g/dL Normal 12.0-16.0 [facility] Comment on above: Performed By: #### C BC ####[facility] Wsxaoogcbf6[address] [place], [place] [address]Dr. Nahed Yañez IG # 0.06 10e3/ul Critically high 0.00-0.03 [facility] Comment on above: Performed By: #### C BC ####[facility] [address]xyi[address] [place] [address]Dr. Nahed Yañez IG % 0.5 % Normal 0.0-0.5 [facility] Comment on above: Performed By: #### C BC ####[facility] Bldfscccye[address] [place], [place] [address]DrShaun Nahed Yañez LYMPH # 0.7 103/ul Critically low 1.2-3.8 [facility] Comment on above: Performed By: #### C BC ####[facility] [address] [place] [address]. Nahed Yañez Lymphocytes/100 WBC (Bld) 5.7 % Critically low 20.5-60.0 [facility] Comment on above: Performed By: #### C BC ####[facility] Cp[address]vap[address] [place] [address]Dr. Nahed Yañez MANUAL DIFF REQ NO Normal [facility] Comment on above: Performed By: #### C BC ####[facility] C[address]rjwlq[address] [place] [address]Dr. Nahed Yañez MCH (RBC) [Entitic mass] 28.2 pg Normal 26.7-34.0 [facility] Comment on above: Performed By: #### C BC ####[facility] Tajmtnlnzk5[address] [place], [place] [address]Dr. Nahed Yañez MCHC (RBC) [Mass/Vol] 31.5 g/dL Normal 29.9-35.2 [facility] Comment on above: Performed By: #### C BC ####[facility] Gghgmvwect[address] [place], [place] [address]Dr. Nahed Yañez MCV (RBC) [Entitic vol] 89.6 fL Normal 81.0-99.0 [facility] Comment on above: Performed By: #### C BC ####[facility] Qsmgbzllme38[address] [place], [place] [address]Dr. Nahed Yañez MONO # 0.3 103/ul Normal 0.3-0.8 [facility] Comment on above: Performed By: #### C BC ####[facility] Cppytlhjjn54[address] [place], [place] [address]Dr. Nahed Yañez Monocytes/100 WBC (Bld) 2.2 % Normal 1.7-12.0 [facility] Comment on above: Performed By: #### C BC ####[facility] Yswdqbshfz4[address] [place], [place] [address]Dr. Nahed Yañez NEUT # 11.1 103/ul Critically high 1.4-6.5 [facility] Comment on above: Performed By: #### C BC ####[facility] Rzhmlmkdcp60[address] [place], [place] [address]Dr. Nahed Yañez Neutrophils/100 WBC (Bld) 91.5 % Critically high 43.0-75.0 [facility] Comment on above: Performed By: #### C BC ####[facility] Xvqxynef[address] [place] [address]Dr. Nahed Yañez Platelet mean volume (Bld) [Entitic vol] 10.1 fL Normal 9.5-13.5 [facility] Comment on above: Performed By: #### C BC ####[facility] [address]ks[address]une[address] [place] [address]Dr. Nahed Yañez PLT 323 103/ul Normal 150-450 [facility] Comment on above: Performed By: #### C BC ####[facility] Mzcffuqmuo88[address] [place] [address]Dr. Nahed Yañez RBC 4.32 106/ul Normal 4.20-5.40 [facility] Comment on above: Performed By: #### C BC ####[facility] Gyjgmqmtkn[address] [place], [place] [address]Dr. Nahed Yañez WBC 12.1 103/ul Critically high 4.0-11.0 [facility] Comment on above: Performed By: #### C BC ####[facility] Lniabwbosw[address] [place], [place] [address]Dr. Nahed Yañez POINT OF CARE GLUCOSEon 07-12 Glucose [Mass/Vol] 308 mg/dL Critically high 74-106 [facility] Comment on above: Performed By: #### P OCGLUC ####[facility] Enegek[address]ub[address] [place] [address]Dr. Nahed Yañez Glucose [Mass/Vol] 341 mg/dL Critically high 74-106 [facility] Comment on above: Performed By: #### P OCGLUC ####[facility] Xykishxvjj4[address] [place], [place] [address]Dr. Nahed Yañez Glucose [Mass/Vol] 320 mg/dL Critically high 74-106 [facility] Comment on above: Performed By: #### P OCGLUC ####[facility] Mnwzwylsmu[address] [place], [place] [address]Dr. Nahed Yañez PROF 14(COMP METB)on 023 Albumin [Mass/Vol] 3.0 g/dL Critically low 3.4-5.[address] [facility] Comment on above: Performed By: #### C MP ####[facility] J[address]epdht35[address] [place] [address]Dr. Nahed Yañez Albumin/Globulin [Mass ratio] 0.7 {ratio} Normal [facility] Comment on above: Performed By: #### C MP ####[facility] Wgovwguiox9[address] [place] [address]Dr. Nahed Yañez ALP [Catalytic activity/Vol] 93 U/L Normal 46-116 [facility] Comment on above: Performed By: #### C MP ####[facility] Flegknvojd6437[address] [place], [place] [address]Dr. Nahed Yañez ALT [Catalytic activity/Vol] 15 U/L Normal 14-59 [facility] Comment on above: Performed By: #### C MP ####[facility] Zcruixaqfe8987[address] [place], [place] [address]Dr. Nahed Yañez Anion gap [Moles/Vol] 13.0 mmol/L Normal [facility] Comment on above: Performed By: #### C MP ####[facility] Kphhsivrjq7[address] [place], [place] [address]Dr. Nahed Yañez AST [Catalytic activity/Vol] 11 U/L Critically low 15-37 [facility] Comment on above: Performed By: #### C MP ####[facility] Xaimsplfcl7039[address] [place], [place] [address]Dr. Nahed Yañez Bilirubin [Mass/Vol] 0.2 mg/dL Normal 0.2-1.0 [facility] Comment on above: Performed By: #### C MP ####[facility] Wrapvexdth7[address] [place], [place] [address]Dr. Nahed Yañez Calcium [Mass/Vol] 9.6 mg/dL Normal 8.5-10.1 [facility] Comment on above: Performed By: #### C MP ####[facility] [address]ib[address] [place] [address]Dr. Nahed Yañez Chloride [Moles/Vol] 100 mmol/L Normal 98-107 [facility] Comment on above: Performed By: #### C MP ####[facility] Cnypacwtjz9[address] [place] [address]Dr. Nahed Yañez CO2 [Moles/Vol] 27.3 mmol/L Normal 21.0-32.0 [facility] Comment on above: Performed By: #### C MP ####[facility] Lfxinvpdfk2679 [place] [address]Dr. Nahed Yañez Creatinine [Mass/Vol] 1.19 mg/dL Critically high 0.55-1.02 [facility] Comment on above: Performed By: #### C MP ####[facility] Ihboorcbqv0[address] [place], [place] [address]Dr. Nahed Yañez EGFR-AF PUERTO RICAN 56 mL/min/1.73m2 Critically low >=60 [facility] Comment on above: Performed By: #### C MP ####[facility] Uxsyzvzhum[address] [place], [place] [address]Dr. Nahed Yañez EGFR-NON AF PUERTO RICAN 46 mL/min/1.73m2 Critically low >=60 [facility] Comment on above: Performed By: #### C MP ####[facility] Dvmucujciy9634[address] [place], [place] [address]Dr. Nahed Otilio Globulin (S) [Mass/Vol] 4.1 g/dL Normal [facility] Comment on above: Performed By: #### C MP ####[facility] Rycrwhcqpt4[address] [place] [address]Dr. Nahed Otilio Glucose [Mass/Vol] 244 mg/dL Critically high 74-106 [facility] Comment on above: Performed By: #### C MP ####[facility] Gnvxrrfsxm2165[address] [place], [place] [address]Dr. Nahed Yañez Potassium [Moles/Vol] 4.3 mmol/L Normal 3.5-5.1 [facility] Comment on above: Performed By: #### C MP ####[facility] Avazwbjibp[address] [place] [address]Dr. Nahed Yañez Protein [Mass/Vol] 7.1 g/dL Normal 6.4-8.2 [facility] Comment on above: Performed By: #### C MP ####[facility] Tppzeqxegj7[address] [place], [place] [address]Dr. Nahed Yañez Sodium [Moles/Vol] 136 mmol/L Normal 136-145 [facility] Comment on above: Performed By: #### C MP ####[facility] Qilmovknwy4873[address] [place], [place] [address]Dr. Nahed Otilio Urea nitrogen [Mass/Vol] 19.0 mg/dL Critically high 7.0-18.0 [facility] Comment on above: Performed By: #### C MP ####[facility] Nejlslndfv350[address] [place], [place] [address]Dr. Rosemarieashley Yañez Urea nitrogen/Creatinine [Mass ratio] 16.0 mg/mg Normal [facility] Comment on above: Performed By: #### C MP ####[facility] Eaqnvxwqaa36[address] [place], [place] [address]Dr. Nahed Otilio BNPon 07-27-2022 Natriuretic peptide B (Bld) [Mass/Vol] 1093.0 pg/mL Critically high <=900.0 [facility] Comment on above: Performed By: #### B TOOL HONING MACHINE SET UP OPERATOR ####[facility] Affwbvyvqi230[address] [place], [place] [address]Dr. Nahed Otilio CBC AUTO DIFFon 07-27-2022 BASO # 0.1 103/ul Normal 0.0-0.1 [facility] Comment on above: Performed By: #### C BC ####[facility] Kzwpbiovmm[address] [place], [place] [address]Dr. Rosemarieashley Yañez Basophils/100 WBC (Bld) 0.3 % Normal 0.2-2.0 [facility] Comment on above: Performed By: #### C BC ####[facility] Sykfyrdruy[address] [place], [place] [address]Dr. Nahed Yañez EO # 0.2 103/ul Normal 0.0-0.7 [facility] Comment on above: Performed By: #### C BC ####[facility] Ros[address]qfoqep[address] [place] [id number]. Nahed Yañez Eosinophils/100 WBC (Bld) 1.2 % Normal 0.9-7.0 [facility] Comment on above: Performed By: #### C BC ####[facility] Cqnapauohu35[address] [place] [address]Dr. Nahed Yañez Erythrocyte distribution width (RBC) [Ratio] 14.1 % Normal 11.0-15.0 [facility] Comment on above: Performed By: #### C BC ####[facility] Iqnydtycid90[address] [place], [place] [address]Dr. Naehd Yañez Hematocrit (Bld) [Volume fraction] 42.2 % Normal 36.0-48.0 [facility] Comment on above: Performed By: #### C BC ####[facility] Ixunbsxhxz16[address] [place], [place] [address]Dr. Nahed Yañez Hemoglobin (Bld) [Mass/Vol] 13.6 g/dL Normal 12.0-16.0 [facility] Comment on above: Performed By: #### C BC ####[facility] Brwjnifuba88[address] [place], [place] [address]Dr. Nahed Yañez IG # 0.09 10e3/ul Critically high 0.00-0.03 [facility] Comment on above: Performed By: #### C BC ####[facility] Nfmlufrkoq6[address] [place], [place] [address]Dr. Nahed Yañez IG % 0.5 % Normal 0.0-0.5 [facility] Comment on above: Performed By: #### C BC ####[facility] Kxwpncggaq5306[address] [place], [place] [address]Dr. Nahed Yañez LYMPH # 1.8 103/ul Normal 1.2-3.8 [facility] Comment on above: Performed By: #### C BC ####[facility] Ubnxpwtisg2724[address] [place], [place] [address]Dr. Nahed Yañez Lymphocytes/100 WBC (Bld) 10.2 % Critically low 20.5-60.0 [facility] Comment on above: Performed By: #### C BC ####[facility] J[address]oxge[address] [place] [phone]. Nahed Yañez MANUAL DIFF REQ NO Normal [facility] Comment on above: Performed By: #### C BC ####[facility] Gw[address]jzdv5[address] [place] [phone]. Nahed Yañez MCH (RBC) [Entitic mass] 28.3 pg Normal 26.7-34.0 [facility] Comment on above: Performed By: #### C BC ####[facility] Txyjxoxsul[address]65 [place] [address]Dr. Nahed Yañez MCHC (RBC) [Mass/Vol] 32.2 g/dL Normal 29.9-35.2 [facility] Comment on above: Performed By: #### C BC ####[facility] Cvlxpdripj99[address] [place], [place] [address]Dr. Nahed Yañez MCV (RBC) [Entitic vol] 87.9 fL Normal 81.0-99.0 [facility] Comment on above: Performed By: #### C BC ####[facility] Fgibveklau24[address] [place], [place] [address]Dr. Nahed Yañez MONO # 0.9 103/ul Critically high 0.3-0.8 [facility] Comment on above: Performed By: #### C BC ####[facility] Wrsqkuefzo59[address] [place], [place] [address]Dr. Nahed Yañez Monocytes/100 WBC (Bld) 5.2 % Normal 1.7-12.0 [facility] Comment on above: Performed By: #### C BC ####[facility] I[address]rbtudag[address] [place], [place] [address]DrShaun Yañez NEUT # 14.4 103/ul Critically high 1.4-6.5 [facility] Comment on above: Performed By: #### C BC ####[facility] Wsjqutwtcp[address] [place], [place] [address]Dr. Nahed Yañez Neutrophils/100 WBC (Bld) 82.6 % Critically high 43.0-75.0 [facility] Comment on above: Performed By: #### C BC ####[facility] Sjkkdlxxlp8622 [place], [place] [address]By. Nahed Yañez Platelet mean volume (Bld) [Entitic vol] 10.1 fL Normal 9.5-13.5 [facility] Comment on above: Performed By: #### C BC ####[facility] [address]mhh[address] [place] [phone]. Nahed Yañez PLT 336 103/ul Normal 150-450 [facility] Comment on above: Performed By: #### C BC ####[facility] Zxxjhqszrk5080 [place], [place] [address]Sf. Nahed Yañze RBC 4.80 106/ul Normal 4.20-5.40 [facility] Comment on above: Performed By: #### C BC ####[facility] Affdmcynnb5[address] [place] [phone]. Nahed Yañez WBC 17.4 103/ul Critically high 4.0-11.0 [facility] Comment on above: Performed By: #### C BC ####[facility] Iaddwlbrjz7413 [place], [place] [address]Zl. Nahed Yañez CTA CHEST WO W CONon 023 CTA CHEST WO W CON Normal [facility]12 SARS-CoV-2 (COVID-19) RNA MIRNA+probe Ql (Unsp spec) Not detected Normal NOT DETECTED [facility] Comment on above: Result [...] for this test is supported by the Sr Risk Management Consultant of Health and Human Service's declaration that [...] be used). Performed By: #### C VDTB ####[facility] Cxdyxoomus[address] [place], [place] [address]Dr. Nahed Yañez ECHOCARDIO M/2D COMPLETEon 0 07-27-2022 ECHOCARDIO M/2D COMPLETE Normal [facility] ER URINE PROFILEon 3 Bilirubin Ql (U) Negative Normal NEGATIVE [facility] Comment on above: Performed By: #### U MICRO, ERUR ####[facility] Xxdixkxlct[address] [place], [place] [address]Dr. Nahed Yañez Clarity (U) CLEAR Normal CLEAR [facility] Comment on above: Performed By: #### U MICRO, ERUR ####[facility] Opozvqmjrj[address] [place], [place] [address]Dr. Nahed Yañez Color (U) LT. YELLOW Normal YELLOW [facility] Comment on above: Performed By: #### U MICRO, ERUR ####[facility] Tfasfzwgdg[address] [place], [place] [address]Dr. Nahed CORNELLAHD A micrscopic examination will be performed if indicated. Normal [facility] Comment on above: Performed By: #### U MICRO, ERUR ####[facility] Zhurrcgpjj0[address] [place], [place] [address]Dr. Nahed Yañez Glucose Ql (U) >1000 Abnormal NEGATIVE [facility] Comment on above: Performed By: #### U MICRO, ERUR ####[facility] Utcqerwuxz[address] [place], [place] [address]Dr. Nahed Yañez Hemoglobin Ql (U) TRACE-LYSED Abnormal NEGATIVE [facility] Comment on above: Performed By: #### U MICRO, ERUR ####[facility] Xraeheltuv6[address] [place], [place] [address]Dr. Nahed Yañez Ketones Ql (U) TRACE Abnormal NEGATIVE [facility] Comment on above: Performed By: #### U MICRO, ERUR ####[facility] Wlgvupcwuh[address] [place] [address]Dr. Rosemarieashley Yañez LEUKOCYTES Negative Normal NEGATIVE [facility] Comment on above: Performed By: #### U MICRO, ERUR ####[facility] Xdgbtlqpni2438 [place] [address]Dr. Nahed Yañez Nitrite Ql (U) Negative Normal NEGATIVE [facility] Comment on above: Performed By: #### U MICRO, ERUR ####[facility] Glfaxljpdq9[address] [place] [address]Dr. Nahed Yañez pH (U) 7.0 [pH] Normal 5-9 [facility] Comment on above: Performed By: #### U MICRO, ERUR ####[facility] Bhvdodompy23[address] [place] [address]Dr. Nahed Yañez SPEC GRAVITY 1.020 Normal 1.005-<=1.02 5 [facility] Comment on above: Performed By: #### U MICRO, ERUR ####[facility] K[address]ofvfgbe[address] [place], [place] [address]Dr. Nahed Yañez UA PROTEIN Negative Normal NEGATIVE/ TRACE [facility] Comment on above: Performed By: #### U MICRO, ERUR ####[facility] W[address]jdhgikb[address] [place], [place] [address]Dr. Nahed Yañez UR MICRO IND INDICATED Normal [facility] Comment on above: Performed By: #### U MICRO, ERUR ####[facility] Asmiztjrru19[address] [place] [address]Dr. Nahed Yañez Urobilinogen Qn (U) 0.2 {Alem'U}/dL Normal 0.2 - 1. 0 [facility] Comment on above: Performed By: #### U MICRO, ERUR ####[facility] Zjmcyhitqm[address] [place], [place] [address]Dr. Nahed Yañez LIPID PROFILEon 07-27-2022 CHOL-HDL RATIO NORM SEE BELOW Normal [facility] Comment on above: Result Comment: 3.3 - 4.4 LOW RISK 4.4 - 7.1 AVERAGE RISK 7.1 - 11.0 MODERATE RISK >11.0 HIGH RISK Performed By: #### M G, LIPID ####[facility] Lvapfimupy5613 [place], [place] [address]Dr. Rosemarieashley Yañez Cholesterol [Mass/Vol] 181 mg/dL Normal <=[address] [facility] Comment on above: Performed By: #### M G, LIPID ####[facility] Axpxcwrdsj7191 [place], [place] [address]Df. Nahed Yañez Cholesterol in HDL [Mass/Vol] 87 mg/dL Critically high 40-60 [facility] Comment on above: Performed By: #### Pablo Moore, LIPID ####[facility] [address]xd[address] [place] [phone]. Nahed Yañez Cholesterol in LDL [Mass/Vol] 78.6 mg/dL Normal [facility] Comment on above: Performed By: #### Pablo Moore, LIPID ####[facility] Spgmatendw76[address] [place] [phone]. Nahed Yañez Cholesterol.total/Chol esterol in HDL [Mass ratio] 2.1 {ratio} Normal [facility] Comment on above: Performed By: #### Pablo Moore, LIPID ####[facility] [address]iqnmx50[address] [place] [phone]. Nahed Yañez HDL NORMAL > or = 60 mg/dl - LO W CARDIOVASCULAR RISK <40 mg/dl - HIGH CARDIOVASCULAR RISK Normal [facility] Comment on above: Performed By: #### Pablo Moore, LIPID ####[facility] Wzlzqlrqcy6206 [place] [phone]. Nahed Yañez LDL CALC NORMAL SEE BELOW Normal [facility] Comment on above: Result Comment: <100 mg/dl OPTIMAL 100 - 129 mg/dl NEAR OR ABOVE OPTIMAL 130 - 159 mg/dl BORDERLINE HIGH 160 - 189 mg/dl HIGH >190 mg/dl VERY HIGH Performed By: #### Pablo G, LIPID ####[facility] Unlldttysf35[address] [place] [phone]. Nahed Yañez Triglyceride [Mass/Vol] 77 mg/dL Normal <=150 [facility] Comment on above: Performed By: #### Pablo Moore, LIPID ####[facility] P[address]avftrkw[address] [place] [address]Dr. Nahed Yañez VLDL CALC 15.4 mg/dL Normal [facility] Comment on above: Performed By: #### M G, LIPID ####[facility] Dxqucaaukn45[address] [place] [address]Dr. Nahed Yañez MAGNESIUMon 07-27-2022 Magnesium [Mass/Vol] 1.7 mg/dL Critically low 1.8-2.4 [facility] Comment on above: Performed By: #### M G, LIPID ####[facility] Wvorbsukkf[address] [place], [place] [address]Dr. Nahed Yañez POINT OF CARE GLUCOSEon 07-12 Glucose [Mass/Vol] 276 mg/dL Critically high 74-106 [facility] Comment on above: Performed By: #### P OCGLUC ####[facility] [address]xuowoijxq[address] [place], [place] [address]Dr. Nahed Yañez Glucose [Mass/Vol] 143 mg/dL Critically high 74-106 [facility] Comment on above: Performed By: #### P OCGLUC ####[facility] Jzmnmqjvlb[address] [place], [place] [address]Dr. Nahed Yañez Glucose [Mass/Vol] 117 mg/dL Critically high 74-106 [facility] Comment on above: Performed By: #### P OCGLUC ####[facility] Vynsdgytag48[address] [place] [address]Dr. Nahed Yañez PROF CHEM 8 (BAS METB)on Anion gap [Moles/Vol] 11.1 mmol/L Normal [facility] Comment on above: Performed By: #### B MP, HSTROPN ####[facility] [address]lkwbprhbu[address] [place], [place] [address]Dr. Rosemarieashley Yañez Calcium [Mass/Vol] 9.6 mg/dL Normal 8.5-10.1 [facility] Comment on above: Performed By: #### B MP, HSTROPN ####[facility] Xkqtppnnpm7085 [place] [address]Dr. Nahed Yañez Chloride [Moles/Vol] 99 mmol/L Normal 98-107 [facility] Comment on above: Performed By: #### B RENZO, HSTROPN ####[facility] Ruqbguqzis57[address] [place] [address]Dr. Nahed Yañez CO2 [Moles/Vol] 27.8 mmol/L Normal 21.0-32.0 [facility] Comment on above: Performed By: #### B RENZO, HSTROPN ####[facility] Ypdsimowtr[address] [place], [place] [address]Dr. Nahed Yañez Creatinine [Mass/Vol] 0.90 mg/dL Normal 0.55-1.02 [facility] Comment on above: Performed By: #### B RENZO, HSTROPN ####[facility] Vowvggddkc[address] [place], [place] [address]Dr. Nahed Yañez EGFR-AF PUERTO RICAN >60 Normal >=60 [facility] Comment on above: Performed By: #### Mery MULLER, HSTROPN ####[facility] [facility] [id number] [place], [place] [address]Dr. Nahed Yañez EGFR-NON AF PUERTO RICAN >60 Normal >=60 [facility] Comment on above: Performed By: #### Mery MULLER, HSTROPN ####[facility] Akgylxzunx[address] [place], [place] [address]Dr. Nahed Yañez Glucose [Mass/Vol] 133 mg/dL Critically high 74-106 [facility] Comment on above: Performed By: #### Mery MULLER, HSTROPN ####[facility] Biqgwnfflp[address] [place], [place] [address]Dr. Nahed Yañez Potassium [Moles/Vol] 3.9 mmol/L Normal 3.5-5.1 [facility] Comment on above: Performed By: #### Mery MULLER, HSTROPN ####[facility] Drkiekgldj[address] [place], [place] [address]Dr. Nahed Yañez Sodium [Moles/Vol] 134 mmol/L Critically low 136-145 [facility] Comment on above: Performed By: #### B RENZO, HSTROPN ####[facility] Y[address]upq[address] [place] [address]Rs. Nahed Yañez Urea nitrogen [Mass/Vol] 9.0 mg/dL Normal 7.0-18.0 [facility] Comment on above: Performed By: #### B MP, HSTROPN ####[facility] Vdux[address]wdpw[address] [place] [phone]. Nahed Yañez Urea nitrogen/Creatinine [Mass ratio] 10.0 mg/mg Normal [facility] Comment on above: Performed By: #### B MP, HSTROPN ####[facility] Vgrdtvcuxc4752 [place] [phone]. Nahed Yañez TROPONIN, HIGH SENSITIVITYon 07-27-2022 HSTROP 40.7 pg/mL Normal 4.0-51.3 [facility] Comment on above: Result Comment: CUT- OFF POINTS HAVE BEEN ESTABLISHED BASED ON THE FOURTH UNIVERSAL DEFINITIONS OF MYOCARDIALINFARCTION. THE UPPER REFERENCE LIMIT (URL) OF TROPONIN, DEFINED THE 99TH PERCENTILE OFcTnI DISTRIBUTION IN A REFERENCE POPULATION, HAS BEEN CONFIRMED THE DECISION THRESHOLDFOR [place] DIAGNOSIS. Performed By: #### H STROPN ####[facility] Tfpqwrpgfc74[address] [place] [phone]. Nahed Yañez HSTROP 42.5 pg/mL Normal 4.0-51.3 [facility] Comment on above: Result Comment: CUT- OFF POINTS HAVE BEEN ESTABLISHED BASED ON THE FOURTH UNIVERSAL DEFINITIONS OF MYOCARDIALINFARCTION. THE UPPER REFERENCE LIMIT (URL) OF TROPONIN, DEFINED THE 99TH PERCENTILE OFcTnI DISTRIBUTION IN A REFERENCE POPULATION, HAS BEEN CONFIRMED THE DECISION THRESHOLDFOR [place] DIAGNOSIS. Performed By: #### H STROPN ####[facility] Kr[address]ffzrlau[address] [place] [phone]. Nahed Yañez HSTROP 50.8 pg/mL Normal 4.0-51.3 [facility] Comment on above: Result Comment: CUT- OFF POINTS HAVE BEEN ESTABLISHED BASED ON THE FOURTH UNIVERSAL DEFINITIONS OF MYOCARDIALINFARCTION. THE UPPER REFERENCE LIMIT (URL) OF TROPONIN, DEFINED THE 99TH PERCENTILE OFcTnI DISTRIBUTION IN A REFERENCE POPULATION, HAS BEEN CONFIRMED THE DECISION THRESHOLDFOR [place] DIAGNOSIS. Performed By: #### H STROPN ####[facility] Fek[address]por34[address] [place] [phone]. Nahed Yañez HSTROP 46.3 pg/mL Normal 4.0-51.3 [facility] Comment on above: Result Comment: CUT- OFF POINTS HAVE BEEN ESTABLISHED BASED ON THE FOURTH UNIVERSAL DEFINITIONS OF MYOCARDIALINFARCTION. THE UPPER REFERENCE LIMIT (URL) OF TROPONIN, DEFINED THE 99TH PERCENTILE OFcTnI DISTRIBUTION IN A REFERENCE POPULATION, HAS BEEN CONFIRMED THE DECISION THRESHOLDFOR [place] DIAGNOSIS. Performed By: #### H STROPN, TSH ####[facility] [address]je[address] [place] [phone]. Nahed Yañez HSTROP 54.2 pg/mL Critically high 4.0-51.3 [facility] Comment on above: Result Comment: CUT- OFF POINTS HAVE BEEN ESTABLISHED BASED ON THE FOURTH UNIVERSAL DEFINITIONS OF MYOCARDIALINFARCTION. THE UPPER REFERENCE LIMIT (URL) OF TROPONIN, DEFINED THE 99TH PERCENTILE OFcTnI DISTRIBUTION IN A REFERENCE POPULATION, HAS BEEN CONFIRMED THE DECISION THRESHOLDFOR [place] DIAGNOSIS. Performed By: #### B MP, HSTROPN ####[facility] Hzdhofomie7[address] [place] [phone]. Nahed Yañez TSHon 07-27-2022 TSH 1.566 uIU/mL Normal 0.358-3.740 [facility] Comment on above: Performed By: #### H STROPN, TSH ####[facility] Hdlsiezgly[address] [place] [phone]. Nahde Yañez URINE MICROSCOPIC ONLYon BACTERIA NONE SEEN Normal NONE SEEN [facility] Comment on above: Performed By: #### U MICRO, ERUR ####[facility] Cwwhrlrore9120 [place] [phone]. Nahed Yañez Bacteria identified Cx Nom (U) NOT INDICATED Normal [facility] Comment on above: Performed By: #### U MICRO, ERUR ####[facility] Ruwfjjiyil2656 [place] [phone]. Nahed Yañez CAST NONE SEEN Normal NONE SEEN [facility] Comment on above: Performed By: #### U MICRO, ERUR ####[facility] Proonyrrkj4449 [place] [address]Dr. Nahed Yañez Crystals LM Nom (Urine sed) NONE SEEN Normal NONE SEEN [facility] Comment on above: Performed By: #### U MICRO, ERUR ####[facility] Jdbqhbjsfc9991 [place] [address]Dr. Nahed Yañez Epithelial cells LM Ql (Urine sed) FEW Abnormal NONE SEEN /RARE [facility] Comment on above: Performed By: #### U MICRO, ERUR ####[facility] [address]aw[address]ovasf[address] [place], [place] [address]Dr. Nahed Yañez MUCOUS NONE SEEN Normal NONE SEEN [facility] Comment on above: Performed By: #### U MICRO, ERUR ####[facility] Q[address]mpzlnn[address] [place], [place] [address]Dr. Nahed Yañez RBC 0-2 Normal 0-2 [facility] Comment on above: Performed By: #### U MICRO, ERUR ####[facility] V[address]jnpfjz[address] [place], [place] [address]Dr. Nahed Yañez WBC NONE SEEN Normal NONE SEEN [facility] Comment on above: Performed By: #### U MICRO, ERUR ####[facility] Ejwbrduowq[address] [place], [place] [address]Dr. Nahed Yañez XR CHEST 1 Von 07-27-2022 XR CHEST 1 V Normal [facility] INSULINon 05-09-2022 Insulin 21.1 uIU/mL Normal 2.6-24.9 [facility] Comment on above: Performed By: #### I NSULIN ####[facility] Cxsoctxcdo[address] [place], [place] [address]Dr. Nahed Yañez BNPon 05-08-2022 Natriuretic peptide B (Bld) [Mass/Vol] 58.0 pg/mL Normal <=900.0 [facility] Comment on above: Performed By: #### B TOOL HONING MACHINE SET UP OPERATOR, LIPID, T7, TSH, CMP ####[facility] Rgfulbujpm7[address] [place] [address]Dr. Nahed Yañez CBC AUTO DIFFon 05-08-2022 BASO # 0.0 103/ul Normal 0.0-0.1 [facility] Comment on above: Performed By: #### C BC ####[facility] Tzyhojrira9[address] [place] [phone]. Nahed Yañez Basophils/100 WBC (Bld) 0.4 % Normal 0.2-2.0 [facility] Comment on above: Performed By: #### C BC ####[facility] Fdecfevybe[address] [place], [place] [address]Dr. Nahed Yañez EO # 0.3 103/ul Normal 0.0-0.7 [facility] Comment on above: Performed By: #### C BC ####[facility] Unzrf[address]hr[address] [place], [place] [address]Dr. Nahed Yañez Eosinophils/100 WBC (Bld) 4.2 % Normal 0.9-7.0 [facility] Comment on above: Performed By: #### C BC ####[facility] Arivtkdaad[address] [place], [place] [address]Dr. Nahed Yañez Erythrocyte distribution width (RBC) [Ratio] 14.0 % Normal 11.0-15.0 [facility] Comment on above: Performed By: #### C BC ####[facility] Wynxpwohic[address] [place], [place] [address]Dr. Nahed Yañez Hematocrit (Bld) [Volume fraction] 43.8 % Normal 36.0-48.0 [facility] Comment on above: Performed By: #### C BC ####[facility] Djvxhcjyaz[address] [place], [place] [address]Dr. Nahed Yañez Hemoglobin (Bld) [Mass/Vol] 13.9 g/dL Normal 12.0-16.0 [facility] Comment on above: Performed By: #### C BC ####[facility] Gaegqbbusq[address] [place], [place] [address]Dr. Nahed Yañez IG # 0.01 10e3/ul Normal 0.00-0.03 [facility] Comment on above: Performed By: #### C BC ####[facility] W[address]vcqjc[address] [place], [place] [address]Dr. Nahed Yañez IG % 0.1 % Normal 0.0-0.5 [facility] Comment on above: Performed By: #### C BC ####[facility] Sjrbvjapdk216[address] [place] [phone]. Nahed Otilio LYMPH # 2.8 103/ul Normal 1.2-3.8 [facility] Comment on above: Performed By: #### C BC ####[facility] Vgpivqccok4568 [place] [phone]. Nahed Yañez Lymphocytes/100 WBC (Bld) 37.6 % Normal 20.5-60.0 [facility] Comment on above: Performed By: #### C BC ####[facility] Omvqepysua4166 [place] [phone]. Nahed Yañez MANUAL DIFF REQ NO Normal [facility] Comment on above: Performed By: #### C BC ####[facility] Msluuefwjc8[address] [place] [phone]. Nahed Yañez MCH (RBC) [Entitic mass] 28.4 pg Normal 26.7-34.0 [facility] Comment on above: Performed By: #### C BC ####[facility] Jddbdtjxzp6152 [place] [phone]. Rosemarieashley Yañez MCHC (RBC) [Mass/Vol] 31.7 g/dL Normal 29.9-35.2 [facility] Comment on above: Performed By: #### C BC ####[facility] Sjzgsyuycr9474 [place] [phone]. Nahed Yañez MCV (RBC) [Entitic vol] 89.6 fL Normal 81.0-99.0 [facility] Comment on above: Performed By: #### C BC ####[facility] Cpwmdxvsjg8536 [place] [phone]. Nahed Yañez MONO # 0.5 103/ul Normal 0.3-0.8 [facility] Comment on above: Performed By: #### C BC ####[facility] Dvteetynrb1344 [place] [phone]. Nahed Yañez Monocytes/100 WBC (Bld) 6.8 % Normal 1.7-12.0 [facility] Comment on above: Performed By: #### C BC ####[facility] Hxpcgvhgfj4480 [place] [phone]. Nahed Yañez NEUT # 3.7 103/ul Normal 1.4-6.5 [facility] Comment on above: Performed By: #### C BC ####[facility] Yqcsvkolnh6579 [place] [phone]. Nahed Yañez Neutrophils/100 WBC (Bld) 50.9 % Normal 43.0-75.0 [facility] Comment on above: Performed By: #### C BC ####[facility] Pcutwnboyp1616 [place] [phone]. Nahed Yañez Platelet mean volume (Bld) [Entitic vol] 9.8 fL Normal 9.5-13.5 [facility] Comment on above: Performed By: #### C BC ####[facility] Hmhbziiqyh3214 [place] [phone]. Nahed Yañez PLT 306 103/ul Normal 150-450 [facility] Comment on above: Performed By: #### C BC ####[facility] Yavmozysrt7769 [place] [phone]. Nahed Yañez RBC 4.89 106/ul Normal 4.20-5.40 [facility] Comment on above: Performed By: #### C BC ####[facility] Puxinfdgwz5162 [place] [phone]. Nahed Yañez WBC 7.3 103/ul Normal 4.0-11.0 [facility] Comment on above: Performed By: #### C BC ####[facility] Pytvartjtm39[address] [place] [phone]. Nahed Yañez FREE THYROXINE INDEX T7on FTI 2.92 Normal 1.30-4.50 [facility] Comment on above: Performed By: #### B TOOL HONING MACHINE SET UP OPERATOR, LIPID, T7, TSH, CMP ####[facility] Hdboxaiych7104 [place] [phone]. Nahed Yañez T3U 34.0 % Normal 30.0-39.0 [facility] Comment on above: Performed By: #### B TOOL HONING MACHINE SET UP OPERATOR, LIPID, T7, TSH, CMP ####[facility] Jhwiyitbxk[address] [place] [address]Dr. Nahed Yañez T4 [Mass/Vol] 8.60 ug/dL Normal 4.80-13.[address] [facility] Comment on above: Performed By: #### B TOOL HONING MACHINE SET UP OPERATOR, LIPID, T7, TSH, CMP ####[facility] Deakjmhnqd7[address] [place] [address]Dr. Nahed Yañez GLYCOHEMOGLOBIN A1Con 2021 ADA RECOMMENDATION SEE BELOW Normal [facility] Comment on above: Result Comment: ADA RECOMMENDED LIMIT 4.0 - 6.0 ADA THERAPEUTIC TARGET < 7.0 ACTION SUGGESTED > 7.0 Performed By: #### A 1C ####[facility] Iqywhojmiz[address] [place], [place] [address]Dr. Nhaed Yañez Glucose [Mass/Vol] 146 mg/dL Normal [facility] Comment on above: Performed By: #### A 1C ####[facility] Fghckluawk[address] [place], [place] [address]Dr. Nahed Yañez HbA1c (Bld) [Mass fraction] 6.7 % Critically high 4.5-6.2 [facility] Comment on above: Performed By: #### A 1C ####[facility] Vjgaszgwxn8402 [place] [address]Dr. Nahed Yañez IRONon 05-08-2022 Iron [Mass/Vol] 76.0 ug/dL Normal 50.0-170.0 [facility] Comment on above: Performed By: #### V ITAD, IRON ####[facility] Qmvaxxbrld8459 [place] [address]Dr. Nahed Yañez LIPID PROFILEon 05-08-2022 CHOL-HDL RATIO NORM SEE BELOW Normal [facility] Comment on above: Result Comment: 3.3 - 4.4 LOW RISK 4.4 - 7.1 AVERAGE RISK 7.1 - 11.0 MODERATE RISK >11.0 HIGH RISK Performed By: #### B TOOL HONING MACHINE SET UP OPERATOR, LIPID, T7, TSH, CMP ####[facility] Ualpdrqlud8450 [place] [phone]. Nahed Yañez Cholesterol [Mass/Vol] 167 mg/dL Normal <=200 [facility] Comment on above: Performed By: #### B TOOL HONING MACHINE SET UP OPERATOR, LIPID, T7, TSH, CMP ####[facility] Qhxejxlars2124 [place] [phone]. Nahed Yañez Cholesterol in HDL [Mass/Vol] 63 mg/dL Critically high 40-60 [facility] Comment on above: Performed By: #### B TOOL HONING MACHINE SET UP OPERATOR, LIPID, T7, TSH, CMP ####[facility] F[address]vepf[address] [place], [place] [address]Dr. Nahed Yañez Cholesterol in LDL [Mass/Vol] 72.6 mg/dL Normal [facility] Comment on above: Performed By: #### B TOOL HONING MACHINE SET UP OPERATOR, LIPID, T7, TSH, CMP ####[facility] Fitvalptof[address] [place], [place] [address]Dr. Nahed Yañez Cholesterol.total/Chol esterol in HDL [Mass ratio] 2.7 {ratio} Normal [facility] Comment on above: Performed By: #### B TOOL HONING MACHINE SET UP OPERATOR, LIPID, T7, TSH, CMP ####[facility] Jbcghyiimr[address] [place], [place] [address]Dr. Nahed Yañez HDL NORMAL > or = 60 mg/dl - LO W CARDIOVASCULAR RISK <40 mg/dl - HIGH CARDIOVASCULAR RISK Normal [facility] Comment on above: Performed By: #### B TOOL HONING MACHINE SET UP OPERATOR, LIPID, T7, TSH, CMP ####[facility] Qszvqppxhf[address] [place], [place] [address]Dr. Nahed Yañez LDL CALC NORMAL SEE BELOW Normal [facility] Comment on above: Result Comment: <100 mg/dl OPTIMAL 100 - 129 mg/dl NEAR OR ABOVE OPTIMAL 130 - 159 mg/dl BORDERLINE HIGH 160 - 189 mg/dl HIGH >190 mg/dl VERY HIGH Performed By: #### B TOOL HONING MACHINE SET UP OPERATOR, LIPID, T7, TSH, CMP ####[facility] Irubshtqwj[address] [place], [place] [address]Dr. Nahed Yañez Triglyceride [Mass/Vol] 157 mg/dL Critically high <=150 [facility] Comment on above: Performed By: #### B TOOL HONING MACHINE SET UP OPERATOR, LIPID, T7, TSH, CMP ####[facility] Tnetifiptf3887 [place] [phone]. Nahed Yañez VLDL CALC 31.4 mg/dL Normal [facility] Comment on above: Performed By: #### B TOOL HONING MACHINE SET UP OPERATOR, LIPID, T7, TSH, CMP ####[facility] Ulnibfvwzz7218 [place] [address]Dr. Nahed Yañez OCC BLD IMMUNO SCREENon 04-14 OCCULT BLOOD Negative Normal NEGATIVE [facility] Comment on above: Performed By: #### O BSCRN ####[facility] Gptgloccru6473 [place] [address]Dr. Nahed Yañez PROF 14(COMP METB)on 022 Albumin [Mass/Vol] 3.7 g/dL Normal 3.4-5.0 [facility] Comment on above: Performed By: #### B TOOL HONING MACHINE SET UP OPERATOR, LIPID, T7, TSH, CMP ####[facility] Hgmvonjqhp[address] [place], [place] [address]Dr. Nhaed Yañez Albumin/Globulin [Mass ratio] 0.9 {ratio} Normal [facility] Comment on above: Performed By: #### B TOOL HONING MACHINE SET UP OPERATOR, LIPID, T7, TSH, CMP ####[facility] Bvqjnkrjid[address] [place], [place] [address]Dr. Nahed Yañez ALP [Catalytic activity/Vol] 99 U/L Normal 46-116 [facility] Comment on above: Performed By: #### B TOOL HONING MACHINE SET UP OPERATOR, LIPID, T7, TSH, CMP ####[facility] Zzmsmstrwn0885 [place] [address]Dr. Nahed Yañez ALT [Catalytic activity/Vol] 20 U/L Normal 14-59 [facility] Comment on above: Performed By: #### B TOOL HONING MACHINE SET UP OPERATOR, LIPID, T7, TSH, CMP ####[facility] Yiyauumlzc2573 [place] [address]Dr. Nahed Yañez Anion gap [Moles/Vol] 10.6 mmol/L Normal [facility] Comment on above: Performed By: #### B TOOL HONING MACHINE SET UP OPERATOR, LIPID, T7, TSH, CMP ####[facility] Ftulzlhdmb1611 [place] [address]Dr. Nahed Yañez AST [Catalytic activity/Vol] 29 U/L Normal 15-37 [facility] Comment on above: Performed By: #### B TOOL HONING MACHINE SET UP OPERATOR, LIPID, T7, TSH, CMP ####[facility] Oirpmymnjf9954 [place] [address]Dr. Nahed Yañez Bilirubin [Mass/Vol] 0.4 mg/dL Normal 0.2-1.0 [facility] Comment on above: Performed By: #### B TOOL HONING MACHINE SET UP OPERATOR, LIPID, T7, TSH, CMP ####[facility] Hawueafmyt[address] [place], [place] [address]Dr. Nahed Yañez Calcium [Mass/Vol] 9.3 mg/dL Normal 8.5-10.1 [facility] Comment on above: Performed By: #### B TOOL HONING MACHINE SET UP OPERATOR, LIPID, T7, TSH, CMP ####[facility] Bsqhbosujh[address] [place], [place] [address]Dr. Nahed Yañez Chloride [Moles/Vol] 100 mmol/L Normal 98-107 [facility] Comment on above: Performed By: #### B TOOL HONING MACHINE SET UP OPERATOR, LIPID, T7, TSH, CMP ####[facility] Iovrlucopc[address] [place], [place] [address]Dr. Nahed Yañez CO2 [Moles/Vol] 31.4 mmol/L Normal 21.0-32.0 [facility] Comment on above: Performed By: #### B TOOL HONING MACHINE SET UP OPERATOR, LIPID, T7, TSH, CMP ####[facility] Wtdbisrctm[address] [place], [place] [address]Dr. Nahed Yañez Creatinine [Mass/Vol] 1.01 mg/dL Normal 0.55-1.02 [facility] Comment on above: Performed By: #### B TOOL HONING MACHINE SET UP OPERATOR, LIPID, T7, TSH, CMP ####[facility] R[address]rofttwqg[address] [place], [place] [address]Dr. Nahed Yñaez EGFR-AF PUERTO RICAN >60 Normal >=60 [facility] Comment on above: Performed By: #### B TOOL HONING MACHINE SET UP OPERATOR, LIPID, T7, TSH, CMP ####[facility] Qcadgvporc[address] [place], [place] [address]Dr. Nahed Yañez EGFR-NON AF PUERTO RICAN 56 mL/min/1.73m2 Critically low >=60 [facility] Comment on above: Performed By: #### B TOOL HONING MACHINE SET UP OPERATOR, LIPID, T7, TSH, CMP ####[facility] Fkevetezyn2061 [place] [address]Dr. Nahed Yañez Globulin (S) [Mass/Vol] 3.9 g/dL Normal [facility] Comment on above: Performed By: #### B TOOL HONING MACHINE SET UP OPERATOR, LIPID, T7, TSH, CMP ####[facility] Hcjyrjlidi2578 [place] [address]Dr. Nahed Yañez Glucose [Mass/Vol] 111 mg/dL Critically high 74-106 [facility] Comment on above: Performed By: #### B TOOL HONING MACHINE SET UP OPERATOR, LIPID, T7, TSH, CMP ####[facility] Dzgfkdbzii[address] [place], [place] [address]Dr. Nahed Yañez Potassium [Moles/Vol] 4.0 mmol/L Normal 3.5-5.1 [facility] Comment on above: Performed By: #### B TOOL HONING MACHINE SET UP OPERATOR, LIPID, T7, TSH, CMP ####[facility] Lujmrixjgc[address] [place], [place] [address]Dr. Nahed Yañez Protein [Mass/Vol] 7.6 g/dL Normal 6.4-8.2 [facility] Comment on above: Performed By: #### B TOOL HONING MACHINE SET UP OPERATOR, LIPID, T7, TSH, CMP ####[facility] Ozuecaprve[address] [place], [place] [address]Dr. Nahed Yañez Sodium [Moles/Vol] 138 mmol/L Normal 136-145 [facility] Comment on above: Performed By: #### B TOOL HONING MACHINE SET UP OPERATOR, LIPID, T7, TSH, CMP ####[facility] Vuxdiiphtp[address] [place], [place] [address]Dr. Nahed Yañez Urea nitrogen [Mass/Vol] 17.0 mg/dL Normal 7.0-18.0 [facility] Comment on above: Performed By: #### B TOOL HONING MACHINE SET UP OPERATOR, LIPID, T7, TSH, CMP ####[facility] Gfdfkmxkqo[address] [place], [place] [address]Dr. Nahed Yañez Urea nitrogen/Creatinine [Mass ratio] 16.8 mg/mg Normal [facility] Comment on above: Performed By: #### B TOOL HONING MACHINE SET UP OPERATOR, LIPID, T7, TSH, CMP ####[facility] Nguhfptscn7614 [place] [phone]. Nahed Yañez TSHon 05-08-2022 TSH 2.835 uIU/mL Normal 0.358-3.740 [facility] Comment on above: Performed By: #### B TOOL HONING MACHINE SET UP OPERATOR, LIPID, T7, TSH, CMP ####[facility] Ybgexrydod6654 [place] [phone]. Rosemarieashley Otilio VITAMIN D 25 OHon 05-08-2022 VIT D 25-OH 13.4 ng/mL Normal [facility] Comment on above: Performed By: #### V GRAEME, IRON ####[facility] Cbtskyrvva4232 [place] [address]Dr. Nahed Yañez VIT D RANGES SEE BELOW Normal [facility] Comment on above: Result Comment: <20 ng/mL Vit D deficient 20 - <30 ng/mL Vit D insufficient 30 - 100 ng/mL Vit D sufficient >100 ng/mL Potential Toxicity Performed By: #### Bianca BEDOLLA, IRON ####[facility] Ldkiylbsya5320 [place] [address]Dr. Nahed Yañez CARDIAC FRANCISCO 3-6on 2 CK [Catalytic activity/Vol] 37 U/L Normal 26-192 [facility] Comment on above: Performed By: #### C MREP ####[facility] Hzhuqzovcb[address] [place], [place] [address]Dr. Nahed Yañez CK.MB [Mass/Vol] 0.79 ng/mL Normal <=3.60 [facility] Comment on above: Performed By: #### C MREP ####[facility] Iohvpehgnq9471 [place] [address]Dr. Nahed Yañez HSTROP 55.3 pg/mL Critically high 4.0-51.3 [facility] Comment on above: Result Comment: CUT- OFF POINTS HAVE BEEN ESTABLISHED BASED ON THE FOURTH UNIVERSAL DEFINITIONS OF MYOCARDIALINFARCTION. THE UPPER REFERENCE LIMIT (URL) OF TROPONIN, DEFINED THE 99TH PERCENTILE OFcTnI DISTRIBUTION IN A REFERENCE POPULATION, HAS BEEN CONFIRMED THE DECISION THRESHOLDFOR [place] DIAGNOSIS. Performed By: #### C MREP ####[facility] Fneroenieb3676 [place], [place] [address]Jw. Nahed Yañez CK [Catalytic activity/Vol] 49 U/L Normal 26-192 [facility] Comment on above: Performed By: #### C MREP ####[facility] Mekkfyigoz2455 [place], [place] [address]Jj. Nahed Yañez CK.MB [Mass/Vol] 0.71 ng/mL Normal <=3.60 [facility] Comment on above: Performed By: #### C MREP ####[facility] Hedrfbsovt0237 [place], [place] [address]Vn. Nahed Yañez HSTROP 62.6 pg/mL Critically high 4.0-51.3 [facility] Comment on above: Result Comment: CUT- OFF POINTS HAVE BEEN ESTABLISHED BASED ON THE FOURTH UNIVERSAL DEFINITIONS OF MYOCARDIALINFARCTION. THE UPPER REFERENCE LIMIT (URL) OF TROPONIN, DEFINED THE 99TH PERCENTILE OFcTnI DISTRIBUTION IN A REFERENCE POPULATION, HAS BEEN CONFIRMED THE DECISION THRESHOLDFOR [place] DIAGNOSIS. Performed By: #### C MREP ####[facility] Fpdilcnwsf1046 [place], [place] [address]Ge. Nahed Yañez [facility]13 SARS-CoV-2 (COVID-19) RNA MIRNA+probe Ql (Unsp spec) Not detected Normal NOT DETECTED [facility] Comment on above: Result [...] for this test is supported by the Sr Risk Management Consultant of Health and Human Service's declaration that [...] Performed By: #### [facility] ####[facility] Gcyqjakhld6468 [place] [phone]. Nahed Yañez ECHO LIMITED STUDYon 022 ECHO LIMITED STUDY Normal [facility] [facility] GLYCOHEMOGLOBIN A1Con 2021 ADA RECOMMENDATION SEE BELOW Normal [facility] Comment on above: Result Comment: ADA RECOMMENDED LIMIT 4.0 - 6.0 ADA THERAPEUTIC TARGET < 7.0 ACTION SUGGESTED > 7.0 Performed By: #### A 1C ####[facility] [address] [place], [place] [address]Dr. Nahed Yañez Glucose [Mass/Vol] 140 mg/dL Normal [facility] Comment on above: Performed By: #### A 1C ####[facility] [address] [place], [place] [address]Dr. Nahed Yañez HbA1c (Bld) [Mass fraction] 6.5 % Critically high 4.5-6.2 [facility] Comment on above: Performed By: #### A 1C ####[facility] [address] [place], [place] [address]Dr. Nahed Yañez LIPID PROFILEon 01-31-2022 CHOL-HDL RATIO NORM SEE BELOW Normal [facility] Comment on above: Result Comment: 3.3 - 4.4 LOW RISK 4.4 - 7.1 AVERAGE RISK 7.1 - 11.0 MODERATE RISK >11.0 HIGH RISK Performed By: #### L IPID ####[facility] [address] [place] [address]Dr. Nahed Yañez Cholesterol [Mass/Vol] 152 mg/dL Normal <=200 [facility] Comment on above: Performed By: #### L IPID ####[facility] Wopksxprqy[address] [place] [address]Dr. Nahed Yañez Cholesterol in HDL [Mass/Vol] 74 mg/dL Critically high 40-60 [facility] Comment on above: Performed By: #### L IPID ####[facility] [address]jj[address]ecsww76[address] [place] [phone]. Nahed Yañze Cholesterol in LDL [Mass/Vol] 62.8 mg/dL Normal [facility] Comment on above: Performed By: #### L IPID ####[facility] Fthhlvqajx9575 [place] [phone]. Nahed Yañez Cholesterol.total/Chol esterol in HDL [Mass ratio] 2.1 {ratio} Normal [facility] Comment on above: Performed By: #### L IPID ####[facility] R[address]etew[address] [place] [phone]. Nahed Yañez HDL NORMAL > or = 60 mg/dl - LO W CARDIOVASCULAR RISK <40 mg/dl - HIGH CARDIOVASCULAR RISK Normal [facility] Comment on above: Performed By: #### L IPID ####[facility] Ghfiqzhfyc[address] [place] [address]Dr. Nahed Yañez LDL CALC NORMAL SEE BELOW Normal [facility] Comment on above: Result Comment: <100 mg/dl OPTIMAL 100 - 129 mg/dl NEAR OR ABOVE OPTIMAL 130 - 159 mg/dl BORDERLINE HIGH 160 - 189 mg/dl HIGH >190 mg/dl VERY HIGH Performed By: #### L IPID ####[facility] Alzprebxwb[address] [place] [phone]. Nahed Yañez Triglyceride [Mass/Vol] 76 mg/dL Normal <=150 [facility] Comment on above: Performed By: #### L IPID ####[facility] Xtinlwxwky[address] [place] [phone]. Nahed Yañez VLDL CALC 15.2 mg/dL Normal [facility] Comment on above: Performed By: #### L IPID ####[facility] [address]htzed[address] [place] [phone]. Nahed Yañez XR CHEST 1 Von 01-31-2022 XR CHEST 1 V Normal [facility] BNPon 01-30-2022 Natriuretic peptide B (Bld) [Mass/Vol] 150.0 pg/mL Normal <=900.0 [facility] Comment on above: Performed By: #### B MP, BNP, CMADM ####[facility] [address]qa[address] [place] [address]Dr. Nahed Yañez CARDIAC FRANCISCO ADMITon 022 CK [Catalytic activity/Vol] 88 U/L Normal 26-192 [facility] Comment on above: Performed By: #### B MP, BNP, CMADM ####[facility] [address]tc[address]jvwuv[address] [place] [address]Dr. Nahed Yañez CK.MB [Mass/Vol] 1.26 ng/mL Normal <=3.60 [facility] Comment on above: Performed By: #### B MP, BNP, CMADM ####[facility] Fdwhdbwell[address] [place] [address]Dr. Nahed Otilio HSTROP 69.3 pg/mL Critically high 4.0-51.3 [facility] Comment on above: Result Comment: CUT- OFF POINTS HAVE BEEN ESTABLISHED BASED ON THE FOURTH UNIVERSAL DEFINITIONS OF MYOCARDIALINFARCTION. THE UPPER REFERENCE LIMIT (URL) OF TROPONIN, DEFINED THE 99TH PERCENTILE OFcTnI DISTRIBUTION IN A REFERENCE POPULATION, HAS BEEN CONFIRMED THE DECISION THRESHOLDFOR [place] DIAGNOSIS. Performed By: #### B MP, BNP, CMADM ####[facility] [address]mhfxqnjv[address] [place] [address]Dr. Nahed Otilio ANDRE 59 ng/mL Normal 9-82 [facility] Comment on above: Performed By: #### B MP, BNP, CMADM ####[facility] Avnauyfkwv[address] [place] [address]Dr. Nahed Otilio CBC AUTO DIFFon 01-30-2022 BASO # 0.0 103/ul Normal 0.0-0.1 [facility] Comment on above: Performed By: #### C BC ####[facility] Lsyicuoopj[address] [place] [address]Dr. Rosemarieashley Yañez Basophils/100 WBC (Bld) 0.2 % Normal 0.2-2.0 [facility] Comment on above: Performed By: #### C BC ####[facility] Wwjttdttwm15[address] [place] [address]Dr. Nahed Yañez EO # 0.1 103/ul Normal 0.0-0.7 [facility] Comment on above: Performed By: #### C BC ####[facility] Qlerqhpcaq5836 [place] [address]Dr. Nahed Yañez Eosinophils/100 WBC (Bld) 0.8 % Critically low 0.9-7.0 [facility] Comment on above: Performed By: #### C BC ####[facility] Fqhduumobu8732 [place] [address]Dr. Nahed Yañez Erythrocyte distribution width (RBC) [Ratio] 14.9 % Normal 11.0-15.0 [facility] Comment on above: Performed By: #### C BC ####[facility] [address] [place], [place] [address]Dr. Nahed Yañez Hematocrit (Bld) [Volume fraction] 45.8 % Normal 36.0-48.0 [facility] Comment on above: Performed By: #### C BC ####[facility] [address]ny[address] [place], [place] [address]Dr. Nahed Yañez Hemoglobin (Bld) [Mass/Vol] 14.7 g/dL Normal 12.0-16.0 [facility] Comment on above: Performed By: #### C BC ####[facility] F[address] [place], [place] [address]Dr. Nahed Yañez IG # 0.07 10e3/ul Critically high 0.00-0.03 [facility] Comment on above: Performed By: #### C BC ####[facility] H[address]phdzdk[address] [place] [address]Dr. Nahed Yañez IG % 0.4 % Normal 0.0-0.5 [facility] Comment on above: Performed By: #### C BC ####[facility] Vx[address]af[address] [place], [place] [address]Dr. Nahed Yañez LYMPH # 2.3 103/ul Normal 1.2-3.8 [facility] Comment on above: Performed By: #### C BC ####[facility] [address] [place] [address]. Nahed Yañez Lymphocytes/100 WBC (Bld) 12.5 % Critically low 20.5-60.0 [facility] Comment on above: Performed By: #### C BC ####[facility] Dqtbizefot6554 [place] [address]Dr. Nahed Yañez MANUAL DIFF REQ NO Normal [facility] Comment on above: Performed By: #### C BC ####[facility] Ncbxspzhyi6980 [place] [address]Dr. Nahed Yañez MCH (RBC) [Entitic mass] 28.0 pg Normal 26.7-34.0 [facility] Comment on above: Performed By: #### C BC ####[facility] Elonfwmbdh[address] [place], [place] [address]Dr. Nahed Yañez MCHC (RBC) [Mass/Vol] 32.1 g/dL Normal 29.9-35.2 [facility] Comment on above: Performed By: #### C BC ####[facility] K[address]ft[address] [place], [place] [address]Dr. Nahed Yañez MCV (RBC) [Entitic vol] 87.2 fL Normal 81.0-99.0 [facility] Comment on above: Performed By: #### C BC ####[facility] Gryagmhers[address] [place], [place] [address]Dr. Nahed Yañez MONO # 0.9 103/ul Critically high 0.3-0.8 [facility] Comment on above: Performed By: #### C BC ####[facility] [address] [place], [place] [address]Dr. Nahed Yañez Monocytes/100 WBC (Bld) 5.1 % Normal 1.7-12.0 [facility] Comment on above: Performed By: #### C BC ####[facility] Y[address]xjp[address] [place], [place] [address]Dr. Nahed Yañez NEUT # 14.6 103/ul Critically high 1.4-6.5 [facility] Comment on above: Performed By: #### C BC ####[facility] Mrhecz[address] [place], [place] [address]Dr. Nahed Yañez Neutrophils/100 WBC (Bld) 81.0 % Critically high 43.0-75.0 [facility] Comment on above: Performed By: #### C BC ####[facility] Vlg[address]ipxkyc22[address] [place] [address]Dr. Nahed Yañez Platelet mean volume (Bld) [Entitic vol] 10.3 fL Normal 9.5-13.5 [facility] Comment on above: Performed By: #### C BC ####[facility] Ahgbkaalrf[address] [place] [address]Dr. Nahed Yañez PLT 280 103/ul Normal 150-450 [facility] Comment on above: Performed By: #### C BC ####[facility] Flcbgbtvag2496 [place] [address]Dr. Nahed Yañez RBC 5.25 106/ul Normal 4.20-5.40 [facility] Comment on above: Performed By: #### C BC ####[facility] Rehcywwkds[address] [place] [address]Dr. Nahed Yañez WBC 18.1 103/ul Critically high 4.0-11.0 [facility] Comment on above: Performed By: #### C BC ####[facility] Libwmiwmui27[address] [place] [address]Dr. Nahed Yañez PROF CHEM 8 (BAS METB)on Anion gap [Moles/Vol] 13.5 mmol/L Normal [facility] Comment on above: Performed By: #### B MP, BNP, CMADM ####[facility] Tgiaaedokj[address] [place] [address]Dr. Nahed Yañez Calcium [Mass/Vol] 9.5 mg/dL Normal 8.5-10.1 [facility] Comment on above: Performed By: #### B MP, BNP, CMADM ####[facility] Rxtefzsigc1843 [place] [address]Dr. Nahed Yañez Chloride [Moles/Vol] 102 mmol/L Normal 98-107 [facility] Comment on above: Performed By: #### B MP, BNP, CMADM ####[facility] Yzz[address]hqbo43[address] [place] [address]Dr. Nahed Yañez CO2 [Moles/Vol] 26.6 mmol/L Normal 21.0-32.0 [facility] Comment on above: Performed By: #### B MP, BNP, CMADM ####[facility] Ugfnlcklff2422 [place] [address]Dr. Nahed Yañez Creatinine [Mass/Vol] 1.06 mg/dL Critically high 0.55-1.02 [facility] Comment on above: Performed By: #### B MP, BNP, CMADM ####[facility] Toedmszbyp[address] [place] [address]Dr. Nahed Yañez EGFR-AF PUERTO RICAN >60 Normal >=60 [facility] Comment on above: Performed By: #### B MP, BNP, CMADM ####[facility] [address] [place], [place] [address]Dr. Rosemarieashley Otilio EGFR-NON AF PUERTO RICAN 53 mL/min/1.73m2 Critically low >=60 [facility] Comment on above: Performed By: #### B MP, BNP, CMADM ####[facility] Eqecwemxvq[address] [place], [place] [address]Dr. Nahed Yañez Glucose [Mass/Vol] 108 mg/dL Critically high 74-106 [facility] Comment on above: Performed By: #### B MP, BNP, CMADM ####[facility] Numvdqojxm1544 [place] [address]Dr. Nahed Yañez Potassium [Moles/Vol] 4.1 mmol/L Normal 3.5-5.1 [facility] Comment on above: Performed By: #### B MP, BNP, CMADM ####[facility] Hzxzzmpliz[address] [place], [place] [address]Dr. Nahed Yañez Sodium [Moles/Vol] 138 mmol/L Normal 136-145 [facility] Comment on above: Performed By: #### B MP, BNP, CMADM ####[facility] Uivincqscl7839 [place] [address]Dr. Nahed Yañez Urea nitrogen [Mass/Vol] 9.0 mg/dL Normal 7.0-18.0 [facility] Comment on above: Performed By: #### B MP, BNP, CMADM ####[facility] [address]mlzcibdtz[address] [place], [place] [address]Sl. Nahed Yañez Urea nitrogen/Creatinine [Mass ratio] 8.5 mg/mg Normal [facility] Comment on above: Performed By: #### B MP, BNP, CMADM ####[facility] Ec[address] [place], [place] [address]Oq. Nahed Yañez Cardiovascular Lab Reporton 11-03-2021 Cardiovascular Lab Report [facility] Patient Name: Vivian Vann [facility] MR #: [id number] Physician: Gasper Avendano Department of M.D. Medicine Service Date: 11/02/2021 Division of Birthdate: 1960 Cardiology Room #: 4AB [id number] [facility] [place] [address] Cardiovascular Laboratory Report FINAL IMPRESSIONS: 1. Severe, [...] anterior descending coronary artery, placement of a 6-Omani MynxGrip closure device. METHODS: After risks, benefits, and alternatives were explained, written informed consent was obtained. The patient was prepped and draped in usual sterile fashion over both groins. Using 1% lidocaine solution, local infiltration anesthesia was achieved over the right groin. Under ultrasound guidance, a micropuncture kit was used to access the right common femoral artery. This was upsized to a 6-Omani 11 cm sheath. Angiography via the 6-Omani sheath was performed. Bilateral selective coronary angiography was performed using JL4 and JR4 catheters. After reviewing the images, it was elected to proceed with an interventional procedure. A 6-Omani XB3.5 guide catheter was advanced over a [...] artery, angiography was repeated initially using a 6-Omani 3DRC catheter and subsequently using a 4-Omani JR4 catheter. After administration of intracoronary nitroglycerin, the concerning lesion almost completely resolved. There was a residual mild stenosis. All catheters removed. A 6-Omani MynxGrip closure device was deployed per protocol [...] and anatomy suitable for closure device. INDICATION: Goz-ZH-vqgvevrdo myocardial infarction. Electronically Signed by: Gasper Avendano M.D. 11/21/2021 02:07 P Gasper Avendano M.D (more content not included)... Normal [facility] CBC COMPLETE BLOOD COUNTon 0 11-02-2021 Erythrocyte distribution width (RBC) [Ratio] 14.7 % Normal 11.5-15.0 [facility] Comment on above: Order Comment: No: D o not add to previous draw Performed By: #### 3 5200, 82979 #### [facility] 3000 [facility]. [address] Hematocrit (Bld) [Volume fraction] 34.5 % Low 36.0-45.0 [facility] Comment on above: Order Comment: No: D o not add to previous draw Performed By: #### 3 0420, 87861 #### [facility] [address] [facility] [place] [address], [facility] Hemoglobin (Bld) [Mass/Vol] 10.6 g/dL Low 12.0-15.0 [facility] Comment on above: Order Comment: No: D o not add to previous draw Performed By: #### 3 5200, 65798 #### [facility] 3000 [facility] [place] [id number], [facility] MCH (RBC) [Entitic mass] 28.1 pg Normal 27.0-33.0 [facility] Comment on above: Order Comment: No: D o not add to previous draw Performed By: #### 3 0, 28004 #### [facility] [address] [place] [address], [facility] MCHC (RBC) [Mass/Vol] 30.7 g/dL Low 32.0-35.0 [facility] Comment on above: Order Comment: No: D o not add to previous draw Performed By: #### 3 0, 83425 #### [facility] [address] [place] [address], [facility] MCV (RBC) [Entitic vol] 91.5 fL Normal 82.0-98.0 [facility] Comment on above: Order Comment: No: D o not add to previous draw Performed By: #### 3 5199, 79790 #### [facility] [address] [place] [address], [facility] Nucleated RBC/100 WBC (Bld) [Ratio] 0 % Normal 0-0 [facility] Comment on above: Order Comment: No: D o not add to previous draw Performed By: #### 3 5199, 52502 #### [facility] [address] [facility] [place] [address], [facility] PLAT CNT 219 10*3/uL Normal 150-400 [facility] Comment on above: Order Comment: No: D o not add to previous draw Performed By: #### 3 5199, 41561 #### [facility] [address] [facility] [place] [address], [facility] RBC (Bld) [#/Vol] 3.77 10*6/uL Low 3.80-5.00 [facility] Comment on above: Order Comment: No: D o not add to previous draw Performed By: #### 3 5199, 95013 #### [facility] [address] [place] [address], [facility] WBC (Bld) [#/Vol] 13.64 10*3/uL High 4.00-10.60 [facility] Comment on above: Order Comment: No: D o not add to previous draw Performed By: #### 3 5200, 39133 #### [facility] [address] [place] [address], [facility] HEMOGLOBIN A1Con 11-02-2021 Glucose [Moles/Vol] 140 mmol/L Normal [facility] Comment on above: Order Comment: No: D o not add to previous draw Performed By: #### 3 1791 #### [facility] [address] [place] [address], [facility] HbA1c (Bld) [Mass fraction] 6.5 % High 4.0-6.0 [facility] Comment on above: Order Comment: No: D o not add to previous draw Performed By: #### 3 1791 #### [facility] [address] [place] [address], [place] LIPID PROFILEon 11-02-2021 Cholesterol [Mass/Vol] 171 mg/dL Normal 120-200 Th [facility] Comment on above: Order Comment: No: D o not add to previous draw Result Comment: CHOL ESTEROL REFERENCE RANGE: 20 YEARS AND OLDER CARDIOVASCULAR RISK Less than 200 mg/dl Low Risk 200 to 239 mg/dl Borderline Risk 240 mg/dl and greater High Risk Performed By: #### 3 5200, 31718 #### [facility] [address] [place] [address], [facility] Cholesterol in HDL [Mass/Vol] 57 mg/dL Normal 23-92 [facility] Comment on above: Order Comment: No: D o not add to previous draw Result Comment: Slig ht variation in normal range could be due to gender and/or age. HDL CHOLESTEROL REFERENCE RANGE: 20 years and older Cardiovascular Risk > or =60 mg/dL Desirable 40 TO 59 mg/dL Low Risk <40 mg/dL High Risk Performed By: #### 3 5200, 85831 #### [facility] [address] [place] [address], [place] Cholesterol in LDL [Mass/Vol] 89 mg/dL Normal 0-130 [facility] Comment on above: Order Comment: No: D o not add to previous draw Result Comment: LDL IS A CALCULATION LDL IS ONLY VALID IF THE TRIG IS LESS THAN 400. Performed By: #### 3 5200, 17839 #### [facility] [address] Cholesterol.total/Chol esterol in HDL [Mass ratio] 3.0 {ratio} Normal .0-4.5 [facility] Comment on above: Order Comment: No: D o not add to previous draw Performed By: #### 3 5200, 10992 #### [facility] [address] NON-HDL CHOLESTEROL 114 mg/dL Normal [facility] Comment on above: Order Comment: No: D o not add to previous draw Performed By: #### 3 5200, 33801 #### [facility] [address] Triglyceride [Mass/Vol] 124 mg/dL Normal 40-149 [facility] Comment on above: Order Comment: No: D o not add to previous draw Result Comment: TRIG LYCERIDE REFERENCE RANGE: 20 YEARS AND OLDER CARDIOVASCULAR RISK LESS THAN 150 mg/dl LOW RISK 150 TO 199 mg/dl BORDERLINE RISK 200 mg/dl AND GREATER HIGH RISK Performed By: #### 3 5200, 82385 #### [facility] [address] [place] [address], [facility] VLDL CHOL 25 mg/dL Normal 0-40 [facility] Comment on above: Order Comment: No: D o not add to previous draw Performed By: #### 3 5200, 24516 #### [facility] [address] TROPONIN-Ion 11-02-2021 Troponin I.cardiac [Mass/Vol] 0.14 ng/mL Critically high 0.00-0.04 [facility] Comment on above: Result Comment: M-NM EVIOUS CRITICAL RESULT REFERENCE RANGES: 0.00 - 0.04 ng/ml NORMAL 0.05 - 0.50 ng/ml INDETERMINATE > 0.50 ng/ml CONSISTENT WITH AN M.I. Performed By: #### 3 5200, 52335 #### [facility] [address] Troponin I.cardiac [Mass/Vol] 0.19 ng/mL Critically high 0.00-0.04 [facility] Comment on above: Order Comment: No: D o not add to previous draw Result Comment: M-NM EVIOUS CRITICAL RESULT REFERENCE RANGES: 0.00 - 0.04 ng/ml NORMAL 0.05 - 0.50 ng/ml INDETERMINATE > 0.50 ng/ml CONSISTENT WITH AN M.I. Performed By: #### 3 5200 #### [facility] [address] TYPE AND SCREENon 11-02-2021 ABO INTERPRETATION O Normal [facility] Comment on above: Performed By: #### 3 5200, 60478 #### [facility] [address] [facility] [place] [address], [facility] RH INTERPRETATION Positive Normal [facility] Comment on above: Performed By: #### 3 5200, 29195 #### [facility] [address] [facility]. [address] UFH HEPARIN ASSAYon 11-03-19 22 UNFRACTIONATED HEPARIN 0.76 IU/mL High 0.30-0.70 Th e [facility] Comment on above: Result Comment: Mary Esther roxaban and Apixaban will interfere with the anti Xa assay used to monitor UFH and LMWH. Performed By: #### 3 5200, 90140 #### [facility] [address] [place] [address], [facility] UNFRACTIONATED HEPARIN 0.96 IU/mL Critically high 0.30-0.7 0 [facility] Comment on above: Result Comment: Resu lt checked and called. Accurately read back by Kathy Kralik RN at 0548 Rivaroxaban and Apixaban will interfere with the anti Xa assay used to monitor UFH and LMWH. Performed By: #### 3 0477 #### [facility] [address] APTTon 11-01-2021 aPTT Coag (Bld) [Time] 28.6 s Normal 25.0-35.0 Th e [facility] Comment on above: Order Comment: [...] THIS PURPOSE. Performed By: #### 3 5200, 10249 #### [facility] [address] BNPon 11-01-2021 Natriuretic peptide B (Bld) [Mass/Vol] 9643.0 pg/mL Critically high <=900.0 [facility] Comment on above: Performed By: #### C MP, BNP, HSTROPN ####[facility] Dkbx[address]choku[address] [place] [address]DrShaun Nahed Yañez BNP (B-TYPE NATRIURETIC PEPT AYLEEN)on 11-01-2021 Natriuretic peptide B (Bld) [Mass/Vol] 768 pg/mL High 0-100 [facility] Comment on above: Order Comment: No: D o not add to previous draw Result Comment: Give n the appropriate clinical setting a BNP result of >100 pg/mL indicates congestive heart failure. Performed By: #### 8 5123 #### [facility] [address] CBC AUTO DIFFon 11-01-2021 BASO # 0.0 103/ul Normal 0.0-0.1 [facility] Comment on above: Performed By: #### C BC ####[facility] Pbfapxibzp[address] [place] [address]Dr. Nahed Yañez Basophils/100 WBC (Bld) 0.1 % Critically low 0.2-2.0 [facility] Comment on above: Performed By: #### C BC ####[facility] Rzrrnsqbor3571 [place] [address]Dr. Nahed Yañez EO # 0.0 103/ul Normal 0.0-0.7 [facility] Comment on above: Performed By: #### C BC ####[facility] [address] [place], [place] [address]Dr. Nahed Yañez Eosinophils/100 WBC (Bld) 0.0 % Critically low 0.9-7.0 [facility] Comment on above: Performed By: #### C BC ####[facility] Ezks[address] [place], [place] [address]Dr. Nahed Yañez Erythrocyte distribution width (RBC) [Ratio] 14.7 % Normal 11.0-15.0 [facility] Comment on above: Performed By: #### C BC ####[facility] Bxkow[address] [place], [place] [address]Dr. Nahed Yañez Hematocrit (Bld) [Volume fraction] 36.1 % Normal 36.0-48.0 [facility] Comment on above: Performed By: #### C BC ####[facility] Aw[address]cov[address] [place], [place] [address]Dr. Nahed Yañez Hemoglobin (Bld) [Mass/Vol] 11.1 g/dL Critically low 12.0-16.0 [facility] Comment on above: Result Comment: IV a ntibiotics Performed By: #### C BC ####[facility] It[address] [place], [place] [address]Dr. Rosemarieashley Otilio IG # 0.09 10e3/ul Critically high 0.00-0.03 [facility] Comment on above: Performed By: #### C BC ####[facility] M[address] [place], [place] [address]Dr. Nahed Yañez IG % 0.7 % Critically high 0.0-0.5 [facility] Comment on above: Performed By: #### C BC ####[facility] [address] [place] [phone]. Nahed Otilio LYMPH # 0.6 103/ul Critically low 1.2-3.8 The [facility] Comment on above: Performed By: #### C BC ####[facility] O[address]nzltk[address] [place] [phone]. Rosemarieashley Yañez Lymphocytes/100 WBC (Bld) 4.8 % Critically low 20.5-60.0 [facility] Comment on above: Performed By: #### C BC ####[facility] Rwpqscsnbh[address] [place] [phone]. Nahed Yañez MANUAL DIFF REQ NO Normal [facility] Comment on above: Performed By: #### C BC ####[facility] Hnpeuly[address] [place] [phone]. Nahed Yañez MCH (RBC) [Entitic mass] 28.2 pg Normal 26.7-34.0 [facility] Comment on above: Performed By: #### C BC ####[facility] Kobuymqwms[address] [place] [phone]. Nahed Yañez MCHC (RBC) [Mass/Vol] 30.7 g/dL Normal 29.9-35.2 [facility] Comment on above: Performed By: #### C BC ####[facility] Mjoeyfjhpi[address] [place] [phone]. Nahed Yañez MCV (RBC) [Entitic vol] 91.9 fL Normal 81.0-99.0 [facility] Comment on above: Performed By: #### C BC ####[facility] A[address] [place] [phone]. Nahed Yañez MONO # 0.2 103/ul Critically low 0.3-0.8 The [facility] Comment on above: Performed By: #### C BC ####[facility] Z[address] [place] [phone]. Nahed Yañez Monocytes/100 WBC (Bld) 1.7 % Normal 1.7-12.0 [facility] Comment on above: Performed By: #### C BC ####[facility] [address] [place], [place] [address]Aa. Nahed Yañez NEUT # 11.2 103/ul Critically high 1.4-6.5 The [facility] Comment on above: Performed By: #### C BC ####[facility] Wx[address]maxkati[address] [place], [place] [address]Th. Nahed Yañez Neutrophils/100 WBC (Bld) 92.7 % Critically high 43.0-75.0 [facility] Comment on above: Performed By: #### C BC ####[facility] [address]ub[address]om[address] [place] [phone]. Nahed Yañez Platelet mean volume (Bld) [Entitic vol] 11.1 fL Normal 9.5-13.5 [facility] Comment on above: Performed By: #### C BC ####[facility] Tt[address] [place] [phone]. Nahed Yañez PLT 213 103/ul Normal 150-450 [facility] Comment on above: Performed By: #### C BC ####[facility] [address] [place] [phone]. Nahed Yañez RBC 3.93 106/ul Critically low 4.20-5.40 [facility] Comment on above: Performed By: #### C BC ####[facility] Ntms[address]soegs[address] [place] [phone]. Nahed Yañez WBC 12.0 103/ul Critically high 4.0-11.0 [facility] Comment on above: Performed By: #### C BC ####[facility] Fcnbcwuydi[address] [place] [phone]. Nahed Yañez CBC W/DIFFon 11-01-2021 ABS IMM GRANS 0.2 10*3/uL Normal 0.0-0.2 [facility] Comment on above: Order Comment: No: D o not add to previous draw Performed By: #### 3 8360, 49135 #### [facility] [address] [place] [address], [place] ABS NEUTROPHILS 12.5 10*3/uL High 1.6-7.6 [facility] Comment on above: Order Comment: No: D o not add to previous draw Performed By: #### 3 5200, 31443 #### [facility] [address] [place] [address], [facility] Basophils (Bld) [#/Vol] 0.0 10*3/uL Normal 0.0-0.2 [facility] Comment on above: Order Comment: No: D o not add to previous draw Performed By: #### 3 5199, 24828 #### [facility] [address] [place] [address], [facility] Basophils/100 WBC (Bld) 0.0 % Normal 0.0-1.0 [facility] Comment on above: Order Comment: No: D o not add to previous draw Performed By: #### 3 5199, 57564 #### [facility] [address] [place] [address], [facility] Eosinophils (Bld) [#/Vol] 0.0 10*3/uL Normal 0.0-0.5 [facility] Comment on above: Order Comment: No: D o not add to previous draw Performed By: #### 3 5199, 04774 #### [facility] [address] [facility] [place] [address], [facility] Eosinophils/100 WBC (Bld) 0.0 % Normal 0.0-6.0 [facility] Comment on above: Order Comment: No: D o not add to previous draw Performed By: #### 3 0, 61698 #### [facility] [address] [facility] [place] [address], [place] Erythrocyte distribution width (RBC) [Ratio] 14.6 % Normal 11.5-15.0 [facility] Comment on above: Order Comment: No: D o not add to previous draw Performed By: #### 3 5199, 34265 #### [facility] [address] [facility] [address] Hematocrit (Bld) [Volume fraction] 36.6 % Normal 36.0-45.0 [facility] Comment on above: Order Comment: No: D o not add to previous draw Performed By: #### 3 5199, 85137 #### [facility] [address] [facility] [place] [address], [facility] Hemoglobin (Bld) [Mass/Vol] 11.4 g/dL Low 12.0-15.0 [facility] Comment on above: Order Comment: No: D o not add to previous draw Performed By: #### 3 5199, 36738 #### [facility] [address] [place] [address], [facility] IMMATURE GRANS 1.2 % High 0.0-1.0 [facility] Comment on above: Order Comment: No: D o not add to previous draw Performed By: #### 3 5199, 78230 #### [facility] 3000 [facility]. [address] Lymphocytes (Bld) [#/Vol] 0.6 10*3/uL Low 1.2-4.0 [facility] Comment on above: Order Comment: No: D o not add to previous draw Performed By: #### 3 5199, 60006 #### [facility] [address] [facility] [place] [address], [facility] Lymphocytes/100 WBC (Bld) 4.2 % Low 20.0-45.0 [facility] Comment on above: Order Comment: No: D o not add to previous draw Performed By: #### 3 5199, 04509 #### [facility] [address] [facility] [place] [address], [facility] MCH (RBC) [Entitic mass] 28.2 pg Normal 27.0-33.0 [facility] Comment on above: Order Comment: No: D o not add to previous draw Performed By: #### 3 5199, 09907 #### [facility] [address] [place] [address], [facility] MCHC (RBC) [Mass/Vol] 31.1 g/dL Low 32.0-35.0 [facility] Comment on above: Order Comment: No: D o not add to previous draw Performed By: #### 3 0, 06321 #### [facility] [address] [place] [address], [facility] MCV (RBC) [Entitic vol] 90.6 fL Normal 82.0-98.0 [facility] Comment on above: Order Comment: No: D o not add to previous draw Performed By: #### 3 5199, 55765 #### [facility] [address] [place] [id number], [facility] Monocytes (Bld) [#/Vol] 0.5 10*3/uL Normal 0.1-1.0 [facility] Comment on above: Order Comment: No: D o not add to previous draw Performed By: #### 3 5199, 12495 #### [facility] [address] [facility] [place] [address], [facility] MONOS 3.3 % Low 5.0-12.0 [facility] Comment on above: Order Comment: No: D o not add to previous draw Performed By: #### 3 5199, 68374 #### [facility] [address] [place] [address], [facility] Neutrophils/100 WBC (Bld) 91.3 % High 40.0-72.0 [facility] Comment on above: Order Comment: No: D o not add to previous draw Performed By: #### 3 5199, 04695 #### [facility] [address] [place] [id number], [facility] Nucleated RBC/100 WBC (Bld) [Ratio] 0 % Normal 0-0 [facility] Comment on above: Order Comment: No: D o not add to previous draw Performed By: #### 3 5200, 41064 #### [facility] [address] [place] [address], [facility] PLAT CNT 224 10*3/uL Normal 150-400 [facility] Comment on above: Order Comment: No: D o not add to previous draw Performed By: #### 3 5200, 24238 #### [facility] [address] [place] [address], [facility] RBC (Bld) [#/Vol] 4.04 10*6/uL Normal 3.80-5.00 [facility] Comment on above: Order Comment: No: D o not add to previous draw Performed By: #### 3 5200, 97671 #### [facility] [address] [place] [address], [facility] WBC (Bld) [#/Vol] 13.70 10*3/uL High 4.00-10.60 [facility] Comment on above: Order Comment: No: D o not add to previous draw Performed By: #### 3 5200, 87756 #### [facility] [address] [place] [address], [facility] COMP METABOLIC PANELon 11-01 Albumin [Mass/Vol] 3.7 g/dL Normal 3.5-5.7 [facility] Comment on above: Order Comment: No: D o not add to previous draw Performed By: #### 0 0121, 15842, 11752 #### [facility] [address] [place] [address], [facility] ALKALINE PHOSPH 54 IU/L Normal 34-104 [facility] Comment on above: Order Comment: No: D o not add to previous draw Performed By: #### 0 0121, 56646, 89135 #### [facility] [address] [place] [address], [place] ALT [Catalytic activity/Vol] 12 U/L Normal 7-52 [facility] Comment on above: Order Comment: No: D o not add to previous draw Performed By: #### 0 0121, 24280, 82166 #### [facility] [address] [place] [address], [place] AST [Catalytic activity/Vol] 17 U/L Normal 13-39 [facility] Comment on above: Order Comment: No: D o not add to previous draw Performed By: #### 0 0121, 33375, 93265 #### [facility] [address] [place] [address], [place] Bilirubin [Mass/Vol] 0.3 mg/dL Normal 0.3-1.0 [facility] Comment on above: Order Comment: No: D o not add to previous draw Performed By: #### 0 0121, 31225, 14365 #### [facility] [address] [place] [address], [place] Calcium [Mass/Vol] 9.4 mg/dL Normal 8.6-10.3 [facility] Comment on above: Order Comment: No: D o not add to previous draw Performed By: #### 0 0121, 08961, 07441 #### [facility] [address] [place] [address], [place] Chloride [Moles/Vol] 100 mmol/L Normal 98-107 [facility] Comment on above: Order Comment: No: D o not add to previous draw Performed By: #### 0 0121, 85856, 60257 #### [facility] [address] [place] [address], [place] CO2 [Moles/Vol] 29 mmol/L Normal 21-31 [facility] Comment on above: Order Comment: No: D o not add to previous draw Performed By: #### 0 0121, 22912, 54675 #### [facility] [address] [place] [address], [place] Creatinine [Mass/Vol] 1.04 mg/dL Normal 0.60-1.20 [facility] Comment on above: Order Comment: No: D o not add to previous draw Performed By: #### 0 0121, 44715, 23608 #### [facility] [address] [place] [address], [place] eGFR- non- 54 ml/min/1.73sq m Abnormal >60 [facility] Comment on above: Order Comment: No: D o not add to previous draw Performed By: #### 0 0121, 94912, 75767 #### [facility] [address] [place] [address], [place] GFR/1.73 sq M.predicted among blacks MDRD (S/P/Bld) [Vol rate/Area] mL/min/{1.73_m2} Normal >60 [facility] Comment on above: Order Comment: No: D o not add to previous draw Performed By: #### 0 0121, 63120, 52299 #### [facility] [address] [place] [address], [place] Glucose [Mass/Vol] 239 mg/dL High 70-100 [facility] Comment on above: Order Comment: No: D o not add to previous draw Performed By: #### 0 0121, 95104, 92576 #### [facility] [address] [place] [address], [place] Potassium [Moles/Vol] 4.3 mmol/L Normal 3.5-5.1 [facility] Comment on above: Order Comment: No: D o not add to previous draw Performed By: #### 0 0121, 82042, 62251 #### [facility] [address] [place] [address], [place] Protein [Mass/Vol] 5.6 g/dL Low 6.0-8.3 [facility] Comment on above: Order Comment: No: D o not add to previous draw Performed By: #### 0 0121, 73192, 78927 #### [facility] [address] [place] [address], [facility] Sodium [Moles/Vol] 139 mmol/L Normal 136-145 [facility] Comment on above: Order Comment: No: D o not add to previous draw Performed By: #### 0 0121, 43037, 16284 #### [facility] [address] [place] [address], [facility] Urea nitrogen [Mass/Vol] 24 mg/dL Normal 7-25 [facility] Comment on above: Order Comment: No: D o not add to previous draw Performed By: #### 0 0121, 05830, 34722 #### [facility] [address] [place] [address], [facility] MAGNESIUM BLOODon 11-01-2021 Magnesium [Mass/Vol] 2.0 mg/dL Normal 1.9-2.7 [facility] Comment on above: Order Comment: No: D o not add to previous draw Performed By: #### 0 0121, 82561, 29402 #### [facility] [address] [place] [address], [facility] PROF 14(COMP METB)on 022 Albumin [Mass/Vol] 3.1 g/dL Critically low 3.4-5.[address] [facility] Comment on above: Performed By: #### C MP, BNP, HSTROPN ####[facility] In[address] [place] [address]Dr. Nahed Yañez Albumin/Globulin [Mass ratio] 1.0 {ratio} Normal [facility] Comment on above: Performed By: #### C MP, BNP, HSTROPN ####[facility] Zjhbrcizsp[address] [place] [address]Dr. Nahed Yañez ALP [Catalytic activity/Vol] 56 U/L Normal 46-116 [facility] Comment on above: Performed By: #### C MP, BNP, HSTROPN ####[facility] Yykyqoksos[address] [place] [address]Dr. Nahed Yañez ALT [Catalytic activity/Vol] 19 U/L Normal 14-59 [facility] Comment on above: Performed By: #### C MP, BNP, HSTROPN ####[facility] Tdoz[address]vwmq[address] [place] [address]Dr. Nahed Yañez Anion gap [Moles/Vol] 14.3 mmol/L Normal Th e [facility] Comment on above: Performed By: #### C MP, BNP, HSTROPN ####[facility] Ntdwxy[address] [place], [place] [address]Dr. Nahed Yañez AST [Catalytic activity/Vol] 18 U/L Normal 15-37 [facility] Comment on above: Performed By: #### C MP, BNP, HSTROPN ####[facility] [address] [place], [place] [address]Dr. Nahed Yañez Bilirubin [Mass/Vol] 0.4 mg/dL Normal 0.2-1.0 [facility] Comment on above: Performed By: #### C MP, BNP, HSTROPN ####[facility] [address] [place], [place] [address]Dr. Nahed Yñaez Calcium [Mass/Vol] 9.3 mg/dL Normal 8.5-10.1 [facility] Comment on above: Performed By: #### C MP, BNP, HSTROPN ####[facility] [address]sx[address]fi[address] [place] [address]Dr. Nahed Yañez Chloride [Moles/Vol] 102 mmol/L Normal 98-107 [facility] Comment on above: Performed By: #### C MP, BNP, HSTROPN ####[facility] U[address] [place], [place] [address]Dr. Nahed Yañez CO2 [Moles/Vol] 27.1 mmol/L Normal 21.0-32.0 [facility] Comment on above: Performed By: #### C MP, BNP, HSTROPN ####[facility] [address]ycql[address] [place] [address]Dr. Nahed Yañez Creatinine [Mass/Vol] 1.25 mg/dL Critically high 0.55-1.02 [facility] Comment on above: Performed By: #### C MP, BNP, HSTROPN ####[facility] [address]aziujtp[address] [place] [address]Dr. Nahed Yañez EGFR-AF PUERTO RICAN 53 mL/min/1.73m2 Critically low >=60 [facility] Comment on above: Performed By: #### C MP, BNP, HSTROPN ####[facility] [address]izigsks[address] [place] [address]Dr. Nahed Yañez EGFR-NON AF PUERTO RICAN 44 mL/min/1.73m2 Critically low >=60 [facility] Comment on above: Performed By: #### C MP, BNP, HSTROPN ####[facility] [address]ybmcwexc[address] [place] [address]Dr. Nahed Yañez Globulin (S) [Mass/Vol] 3.2 g/dL Normal [facility] Comment on above: Performed By: #### C MP, BNP, HSTROPN ####[facility] [address]mnncvjwfl[address] [place] [address]Dr. Nahed Yañez Glucose [Mass/Vol] 248 mg/dL Critically high 74-106 [facility] Comment on above: Performed By: #### C MP, BNP, HSTROPN ####[facility] Zcxrilptao7[address] [place] [address]Dr. Nahed Yañez Potassium [Moles/Vol] 3.4 mmol/L Critically low 3.5-5.1 [facility] Comment on above: Performed By: #### C MP, BNP, HSTROPN ####[facility] Dpynreqyvq[address] [place] [address]Dr. Rosemarielan Yañez Protein [Mass/Vol] 6.3 g/dL Critically low 6.4-8.[address] [facility] Comment on above: Performed By: #### C MP, BNP, HSTROPN ####[facility] Ighpcmysdx[address]994 [place] [address]Dr. Nahed Yañez Sodium [Moles/Vol] 140 mmol/L Normal 136-145 [facility] Comment on above: Performed By: #### C MP, BNP, HSTROPN ####[facility] Ab[address]zlg[address] [place], [place] [address]Ah. Nahed Yañez Urea nitrogen [Mass/Vol] 18.0 mg/dL Normal 7.0-18.0 [facility] Comment on above: Performed By: #### C MP, BNP, HSTROPN ####[facility] Z[address]cjtnegf5687 [place], [place] [address]Jw. Nahed Yañez Urea nitrogen/Creatinine [Mass ratio] 14.4 mg/mg Normal [facility] Comment on above: Performed By: #### C MP, BNP, HSTROPN ####[facility] Uffebmreuo9549 [place], [place] [address]Ag. Nahed Yañez PROTHROMBIN TIMEon 2 INR Coag (PPP) [Relative time] 1.06 {INR} Normal 0.91-1.16 [facility] Comment on above: Order Comment: No: [...] 1995;108:[id number]. Performed By: #### 5 6101 #### [facility] [address] [facility] [address] PT Coag (PPP) [Time] 13.8 s Normal 12.3-14.8 [facility] Comment on above: Order Comment: No: D o not add to previous draw Result Comment: ALL RESULTS MUST BE INTERPRETED WITH RESPECT TO BLOOD DRAWING ARTIFACT OR DILUTION ERROR OF ANTICOAGULANT AT THE TIME OF SAMPLING. Performed By: #### 5 6101 #### [facility] [address] [place] [address], [facility] TROPONIN, HIGH SENSITIVITYon 11-01-2021 HSTROP 1684.4 pg/mL Critically high 4.0-51.3 [facility] Comment on above: Result Comment: CUT- OFF POINTS HAVE BEEN ESTABLISHED BASED ON THE FOURTH UNIVERSAL DEFINITIONS OF MYOCARDIALINFARCTION. THE UPPER REFERENCE LIMIT (URL) OF TROPONIN, DEFINED THE 99TH PERCENTILE OFcTnI DISTRIBUTION IN A REFERENCE POPULATION, HAS BEEN CONFIRMED THE DECISION THRESHOLDFOR WY DIAGNOSIS. Performed By: #### C MP, BNP, HSTROPN ####[facility] Eknpsuqwyu56[address] [place] [address]DrShaun Yañez TROPONIN-Ion 11-01-2021 Troponin I.cardiac [Mass/Vol] 0.22 ng/mL Critically high 0.00-0.04 [facility] Comment on above: Order Comment: No: D o not add to previous draw Result Comment: M-TR OPONIN INITIAL CRITICAL HIGH; RESPUN AND RETESTED M-CRITICAL RESULT(S) REVIEWED, CALLED TO AND READ BACK BY Kathy Suárez RN at 2205. REFERENCE RANGES: 0.00 - 0.04 ng/ml NORMAL 0.05 - 0.50 ng/ml INDETERMINATE > 0.50 ng/ml CONSISTENT WITH AN M.I. Performed By: #### 0 0121, 12222, 81502 #### [facility] [address] [place] [address], [facility] UFH HEPARIN ASSAYon 11-02-19 22 UNFRACTIONATED HEPARIN 0.55 IU/mL Normal 0.30-0.70 [facility] Comment on above: Result Comment: Clare roxaban and Apixaban will interfere with the anti Xa assay used to monitor UFH and LMWH. Performed By: #### 3 5200, 48493 #### [facility] [address] [place] [address], [facility] BLOOD GASES BTYon 10-31-2021 02 MODE ROOM AIR Normal [facility] Comment on above: Performed By: #### A BG ####[facility] [address]qfstthsxd[address] [place] [address]Dr. Nahed Yañez ALLENS TEST Positive Normal [facility] Comment on above: Performed By: #### A BG ####[facility] Bzpvfj[address]ie[address] [place] [address]Dr. Nahed Yañez Base excess Calc (Bld) [Moles/Vol] 3.5 mmol/L Critically high -2.0-2.0 [facility] Comment on above: Performed By: #### A BG ####[facility] Ztg[address] [place], [place] [address]Dr. Nahed Yañez BIPAP PRESSURE Normal [facility] Comment on above: Performed By: #### A BG ####[facility] Tsp[address]fcax[address] [place], [place] [address]Dr. Nahed Yañez CO2 [Moles/Vol] 56.3 mmol/L Critically high 23.0-28.0 [facility] Comment on above: Performed By: #### A BG ####[facility] Lovaszfxts[address] [place], [place] [address]Dr. Nahed Yañez CPAP Normal [facility] Comment on above: Performed By: #### A BG ####[facility] [address]cv[address]kszw[address] [place], [place] [address]Dr. Nahed Yañez FIO2 Normal [facility] Comment on above: Performed By: #### A BG ####[facility] W[address]onsy[address] [place], [place] [address]Dr. Nahed Yañez HCO3 (Bld) [Moles/Vol] 26.8 mmol/L Critically high 22.0-26 .0 [facility] Comment on above: Performed By: #### A BG ####[facility] [address] [place], [place] [address]Dr. Nahed Yañez LPM Normal [facility] Comment on above: Performed By: #### A BG ####[facility] Rtxq[address] [place] [address]Dr. Nahed Yañez MINUTE VOLUME Normal [facility] Comment on above: Performed By: #### A BG ####[facility] Jpjxpdirgd30[address] [place] [address]Dr. Nahed Yañez Oxygen (Bld) [Partial pressure] 51.8 mm[Hg] Critically low 80.0-100.0 [facility] Comment on above: Performed By: #### A BG ####[facility] Njutsu[address] [place], [place] [address]Dr. Nahed Yañez Oxygen saturation in Blood 86.3 % Critically low 95.0-100.0 [facility] Comment on above: Performed By: #### A BG ####[facility] [address]zg[address] [place], [place] [address]Dr. Nahed Yañez PCO2 43.8 mmHg Normal 35.0-45.0 [facility] Comment on above: Performed By: #### A BG ####[facility] T[address] [place], [place] [address]Dr. Nahed Yañez PEEP [facility] Comment on above: Performed By: #### A BG ####[facility] Yxc[address]ax[address] [place], [place] [address]Dr. Nahed Yañez pH (Bld) 7.415 [pH] Normal 7.350-7.450 [facility] Comment on above: Performed By: #### A BG ####[facility] [address] [place], [place] [address]Dr. Nahed Yañez PIP Normal [facility] Comment on above: Performed By: #### A BG ####[facility] [address] [place], [place] [address]Dr. Nahed Yañez PS Normal [facility] Comment on above: Performed By: #### A BG ####[facility] Dfmfiglcxl5573 [place] [address]Dr. Nahed Yañez PUNCTURE SITE RR Normal [facility] Comment on above: Performed By: #### A BG ####[facility] Xlbqslwhmc8948 [place] [address]Dr. Nahed Yañez RATE Normal [facility] Comment on above: Performed By: #### A BG ####[facility] Bgupxuiuhx80[address] [place] [address]Dr. Nahed Yañez VENT MODE Normal [facility] Comment on above: Performed By: #### A BG ####[facility] Ieuacjhjnd1478 [place] [address]Dr. Nahed Yañez VT Normal [facility] Comment on above: Performed By: #### A BG ####[facility] Kxkmiqwmpc8942 [place] [address]Dr. Nahed Yañez BNPon 2 Natriuretic peptide B (Bld) [Mass/Vol] 28158.0 pg/mL Critically high <=900.0 [facility] Comment on above: Performed By: #### T 4, TSH, BNP, CMADM ####[facility] Ahesahxajv[address] [place], [place] [address]Dr. Nahed Yañez CARDIAC FRANCISCO 3-6on 2 CK [Catalytic activity/Vol] 91 U/L Normal 26-192 [facility] Comment on above: Performed By: #### C MREP ####[facility] Nholtoggdg[address] [place], [place] [address]Dr. Nahed Yañez CK.MB [Mass/Vol] 7.32 ng/mL Critically high <=3.60 [facility] Comment on above: Result Comment: test repeated critical value verified Performed By: #### C MREP ####[facility] Dxpastruap[address] [place], [place] [address]Dr. Nahed Yañez HSTROP 2823.1 pg/mL Critically high 4.0-51.3 [facility] Comment on above: Result Comment: CUT- OFF POINTS HAVE BEEN ESTABLISHED BASED ON THE FOURTH UNIVERSAL DEFINITIONS OF MYOCARDIALINFARCTION. THE UPPER REFERENCE LIMIT (URL) OF TROPONIN, DEFINED THE 99TH PERCENTILE OFcTnI DISTRIBUTION IN A REFERENCE POPULATION, HAS BEEN CONFIRMED THE DECISION THRESHOLDFOR [place] DIAGNOSIS.test repeated critical value verified Performed By: #### C MREP ####[facility] Mjmcxortcb1797 [place] [id number]. Nahed Yañez CARDIAC FRANCISCO ADMITon 022 CK [Catalytic activity/Vol] 85 U/L Normal 26-192 [facility] Comment on above: Performed By: #### T 4, TSH, BNP, CMADM ####[facility] Gfxwjzfrmv0638 [place] [address]Dr. Rosemarieashley Yañez CK.MB [Mass/Vol] 6.44 ng/mL Critically high <=3.60 [facility] Comment on above: Performed By: #### T 4, TSH, BNP, CMADM ####[facility] Udipgdfzcf1892 [place] [address]Dr. Nahed Otilio HSTROP 3194.8 pg/mL Critically high 4.0-51.3 [facility] Comment on above: Result Comment: CUT- OFF POINTS HAVE BEEN ESTABLISHED BASED ON THE FOURTH UNIVERSAL DEFINITIONS OF MYOCARDIALINFARCTION. THE UPPER REFERENCE LIMIT (URL) OF TROPONIN, DEFINED THE 99TH PERCENTILE OFcTnI DISTRIBUTION IN A REFERENCE POPULATION, HAS BEEN CONFIRMED THE DECISION THRESHOLDFOR [place] DIAGNOSIS. Performed By: #### T 4, TSH, BNP, CMADM ####[facility] Ufvvowocka7596 [place] [address]Dr. Rosemarieashley Yañez ANDRE 57 ng/mL Normal 9-82 [facility] Comment on above: Performed By: #### T 4, TSH, BNP, CMADM ####[facility] Uricvhblce5212 [place] [address]Dr. Nahed Otilio CBC AUTO DIFFon 10-31-2021 BASO # 0.0 103/ul Normal 0.0-0.1 [facility] Comment on above: Performed By: #### C BC ####[facility] Cihpabjugd5532 [place] [address]Dr. Rosemarieashley Yañez Basophils/100 WBC (Bld) 0.2 % Normal 0.2-2.0 [facility] Comment on above: Performed By: #### C BC ####[facility] Qyhsckqvwu1713 [place] [address]Dr. Nahed Yañez EO # 0.0 103/ul Normal 0.0-0.7 [facility] Comment on above: Performed By: #### C BC ####[facility] Rtrvnasqug3427 [place] [address]Dr. Nahed Yañez Eosinophils/100 WBC (Bld) 0.1 % Critically low 0.9-7.0 [facility] Comment on above: Performed By: #### C BC ####[facility] Qwmuzenhrn2134[address] [place], [place] [address]Dr. Nahed Otilio Erythrocyte distribution width (RBC) [Ratio] 14.8 % Normal 11.0-15.0 [facility] Comment on above: Performed By: #### C BC ####[facility] Fxgaxmrzrt58[address] [place], [place] [address]Dr. Nahed Yañez Hematocrit (Bld) [Volume fraction] 44.4 % Normal 36.0-48.0 [facility] Comment on above: Performed By: #### C BC ####[facility] Egwsqlxhtd026[address] [place], [place] [address]Dr. Nahed Yañez Hemoglobin (Bld) [Mass/Vol] 14.1 g/dL Normal 12.0-16.0 [facility] Comment on above: Performed By: #### C BC ####[facility] Dpewmvupfc8976[address] [place], [place] [address]Dr. Rosemarieashley Otilio IG # 0.04 10e3/ul Critically high 0.00-0.03 [facility] Comment on above: Performed By: #### C BC ####[facility] Vfquaerkdl58[address] [place], [place] [address]Dr. Nahed Yañez IG % 0.3 % Normal 0.0-0.5 [facility] Comment on above: Performed By: #### C BC ####[facility] Nsrourzyal849[address] [place], [place] [address]Dr. Nahed Yañez LYMPH # 1.4 103/ul Normal 1.2-3.8 [facility] Comment on above: Performed By: #### C BC ####[facility] Ziddbgkhsr278[address] [place], [place] [address]Dr. Nahed Yañez Lymphocytes/100 WBC (Bld) 10.4 % Critically low 20.5-60.0 [facility] Comment on above: Performed By: #### C BC ####[facility] Xkmczxtsyj7039 [place] [address]DrShaun Yañez MANUAL DIFF REQ NO Normal [facility] Comment on above: Performed By: #### C BC ####[facility] Okamnxfhwh5260 [place] [address]DrShaun Yañez MCH (RBC) [Entitic mass] 28.1 pg Normal 26.7-34.0 [facility] Comment on above: Performed By: #### C BC ####[facility] Yjcmnczilh7[address] [place], [place] [address]DrShaun Yañez MCHC (RBC) [Mass/Vol] 31.8 g/dL Normal 29.9-35.2 [facility] Comment on above: Performed By: #### C BC ####[facility] Maavumhobx6655[address] [place], [place] [address]DrShaun Yañez MCV (RBC) [Entitic vol] 88.4 fL Normal 81.0-99.0 [facility] Comment on above: Performed By: #### C BC ####[facility] Glllnbuvnp8078[address] [place], [place] [address]DrShaun Yañez MONO # 0.8 103/ul Normal 0.3-0.8 [facility] Comment on above: Performed By: #### C BC ####[facility] Nhpmovhjhz6535[address] [place], [place] [address]DrShaun Yañez Monocytes/100 WBC (Bld) 6.0 % Normal 1.7-12.0 [facility] Comment on above: Performed By: #### C BC ####[facility] Yjgyfsjuoe158[address] [place], [place] [address]DrShaun Yañez NEUT # 10.9 103/ul Critically high 1.4-6.5 [facility] Comment on above: Performed By: #### C BC ####[facility] Weoxgaeqjr8156[address] [place], [place] [address]DrShaun Yañez Neutrophils/100 WBC (Bld) 83.0 % Critically high 43.0-75.0 [facility] Comment on above: Performed By: #### C BC ####[facility] Rzpgccoyoc8933 [place] [address]Dr. Nahed Yañez Platelet mean volume (Bld) [Entitic vol] 10.8 fL Normal 9.5-13.5 [facility] Comment on above: Performed By: #### C BC ####[facility] Ivuxfwbrar[address] [place], [place] [address]Dr. Rosemarieashley Yañez PLT 402 103/ul Normal 150-450 [facility] Comment on above: Performed By: #### C BC ####[facility] Fhklnqtqur844[address] [place], [place] [address]Dr. Rosemarieashley Yañez RBC 5.02 106/ul Normal 4.20-5.40 [facility] Comment on above: Performed By: #### C BC ####[facility] Gowjmhvwiz9416[address] [place], [place] [address]Dr. Nahed Yañez WBC 13.1 103/ul Critically high 4.0-11.0 [facility] Comment on above: Performed By: #### C BC ####[facility] Thyablipei4239[address] [place], [place] [address]Dr. Nahed Yañez CTA CHEST WO W CONon 022 CTA CHEST WO W CON Normal [facility] CULTURE BLOODon 10-31-2021 Microscopic examination of blood, culture Culture Observations: NO GROWTH AT 5 DAYS. Normal [facility] Comment on above: Performed By: #### B LDCX2 ####[facility] Jcssfvymqu99[address] [place], [place] [address]Dr. Nahed Yañez Microscopic examination of blood, culture Culture Observations: NO GROWTH AT 5 DAYS. Normal [facility] Comment on above: Performed By: #### B LDCX1 ####[facility] Ewzensiozd3022[address] [place], [place] [address]Dr. Nahed Yañez Covid-19 PCR (CVDTB)on 10-13 SARS-CoV-2 (COVID-19) RNA MIRNA+probe Ql (Unsp spec) Not detected Normal NOT DETECTED [facility] Comment on above: Result [...] for this test is supported by the [place] of [employer] and Human Service's declaration that [...] longer be used). Performed By: #### [facility] ####[facility] Inzolalxkp9214[address] [place], [place] [address]Dr. Nahed Yañez ECHO LIMITED STUDYon 022 ECHO LIMITED STUDY Normal [facility] ER URINE PROFILEon 2 Bilirubin Ql (U) SMALL Abnormal NEGATIVE [facility] Comment on above: Performed By: #### YARELIS DOVE ####[facility] Ujpuaedici3147[address] [place], [place] [address]Dr. Nahed Yañez Clarity (U) CLEAR Normal CLEAR [facility] Comment on above: Performed By: #### YARELIS DOVE ####[facility] Xxtctegiph8269[address] [place], [place] [address]Dr. Nahed Yañez Color (U) YELLOW Normal YELLOW [facility] Comment on above: Performed By: #### YARELIS DOVE ####[facility] Lxjskxzhxr[address] [place], [place] [address]Dr. Nahed Yañez ERUAHD A micrscopic examination will be performed if indicated. Normal [facility] Comment on above: Performed By: #### YARELIS DOVE ####[facility] Bbblwgpbaj7512[address] [place], [place] [address]Dr. Nahed Yañez Glucose Ql (U) Negative Normal NEGATIVE [facility] Comment on above: Performed By: #### Isidoro ALCARAZ UMICRO ####[facility] Sxyvtyhddk[address] [place], [place] [address]Dr. Nahed Yañez Hemoglobin Ql (U) TRACE-INTACT Abnormal NEGATIVE [facility] Comment on above: Performed By: #### Isidoro ALCARAZ UMICRO ####[facility] Tekauicmyt29[address] [place], [place] [address]Dr. Nahed Yañez Ketones Ql (U) 15 mg/dl Abnormal NEGATIVE [facility] Comment on above: Performed By: #### Isidoro ALCARAZ UMICRO ####[facility] Qtzjouprja4717[address] [place], [place] [address]Dr. Nahed Yañez LEUKOCYTES TRACE Abnormal NEGATIVE [facility] Comment on above: Performed By: #### Isidoro ALCARAZ UMICRO ####[facility] Nduqnuipiq17[address] [place], [place] [address]Dr. Nahed Yañez Nitrite Ql (U) Negative Normal NEGATIVE [facility] Comment on above: Performed By: #### Isidoro ALCARAZ UMICRO ####[facility] Ycqfpgvmja34[address] [place], [place] [address]Dr. Nahed Yañez pH (U) 6.5 [pH] Normal 5-9 [facility] Comment on above: Performed By: #### Isidoro ALCARAZ UMICRO ####[facility] Tekdiaqcon6365[address] [place], [place] [address]Dr. Nahed Yañez Protein (U) [Mass/Vol] 30 mg/dL Abnormal NEGAT JOSEPHINE/ TRACE [facility] Comment on above: Performed By: #### Isidoro ALCARAZ UMICRO ####[facility] Olqbrybfhq9[address] [place], [place] [address]Dr. Nahed Yañez SPEC GRAVITY 1.025 Normal 1.005-<=1.02 5 [facility] Comment on above: Performed By: #### Isidoro ALCARAZ UMICRO ####[facility] Rsqzcwouet118[address] [place], [place] [address]Dr. Nahed Yañez UR MICRO IND INDICATED Normal [facility] Comment on above: Performed By: #### YARELIS DOVE ####[facility] Hdltnsifns1939[address] [place], [place] [address]Dr. Nahed Yañez Urobilinogen Qn (U) 0.2 {Alem'U}/dL Normal 0.2 - 1. 0 [facility] Comment on above: Performed By: #### YARELIS DOVE ####[facility] Qxojasuejv1549[address] [place], [place] [address]Dr. Nahed Yañez INFLUENZA A AND B AGon 10-31 INFLUANEGH SEE BELOW Normal [facility] Comment on above: Result Comment: Nega tive for Flu A protein angiten. Infection due to Flu A cannot be ruled out. Flu A angiten in the sample may be below the detection limit of the test. Performed By: #### I NFLUAB ####[facility] Fvhfgehmou[address] [place], [place] [address]Dr. Nahed Yañez INFLUBNEGH SEE BELOW Normal [facility] Comment on above: Result Comment: Nega tive for Flu B protein antigen. Infection due to Flu B cannot be ruled out. Flu B antigen in the sample may be below the detection limit of the test. Performed By: #### I NFLUAB ####[facility] Bkftdonsal084[address] [place], [place] [address]Dr. Nahed Yañez INFLUENZA A AG Negative Normal NEGATIVE SEE COMMENT [facility] Comment on above: Performed By: #### I NFLUAB ####[facility] Jksdorbyan7395[address] [place], [place] [address]Dr. Nahed Yañez INFLUENZA B AG Negative Normal NEGATIVE SEE COMMENT [facility] Comment on above: Performed By: #### I NFLUAB ####[facility] Wgkrkidpxa13[address] [place], [place] [address]Dr. Nahed Yañez INTERNAL CONTROLS Within Normal Limits Normal Wi thin Normal Limits [facility] Comment on above: Performed By: #### I NFLUAB ####[facility] Wdzmspvynn3474[address] [place], [place] [address]Dr. Nahed Yañez LACTATE/LACTIC ACIDon 2021 Lactate [Moles/Vol] 1.3 mmol/L Normal 0.4-1.9 [facility] Comment on above: Performed By: #### L ACT ####[facility] Lcturkupwd8255[address] [place], [place] [address]Dr. Nahed Yañez PROF 14(COMP METB)on 022 Albumin [Mass/Vol] 4.3 g/dL Normal 3.4-5.0 [facility] Comment on above: Performed By: #### C MP ####[facility] Ijvdjpojbr9436[address] [place], [place] [address]Dr. Nahed Yañez Albumin/Globulin [Mass ratio] 1.2 {ratio} Normal [facility] Comment on above: Performed By: #### C MP ####[facility] Olznaajmut3053[address] [place], [place] [address]Dr. Nahed Yañez ALP [Catalytic activity/Vol] 77 U/L Normal 46-116 [facility] Comment on above: Performed By: #### C MP ####[facility] Dlhpwwsmty8593[address] [place], [place] [address]Dr. Nahed Yañez ALT [Catalytic activity/Vol] 25 U/L Normal 14-59 [facility] Comment on above: Performed By: #### C MP ####[facility] Wxquykagri2844[address] [place], [place] [address]Dr. Nahed Yañez Anion gap [Moles/Vol] 15.6 mmol/L Normal [facility] Comment on above: Performed By: #### C MP ####[facility] Gwjzqgktyj0[address] [place], [place] [address]Dr. Nahed Yañez AST [Catalytic activity/Vol] 26 U/L Normal 15-37 [facility] Comment on above: Performed By: #### C MP ####[facility] Lsrqwsebzp6615[address] [place], [place] [address]Dr. Nahed Yañez Bilirubin [Mass/Vol] 0.6 mg/dL Normal 0.2-1.0 [facility] Comment on above: Performed By: #### C MP ####[facility] Vafdkdxxto129[address] [place], [place] [address]Dr. Nahed Yañez Calcium [Mass/Vol] 10.0 mg/dL Normal 8.5-10.1 [facility] Comment on above: Performed By: #### C MP ####[facility] Xwtzfjaizx8029 [place] [address]Dr. Nahed Yañez Chloride [Moles/Vol] 101 mmol/L Normal 98-107 [facility] Comment on above: Performed By: #### C MP ####[facility] Vksekinhbo0354 [place] [address]Dr. Nahed Yañez CO2 [Moles/Vol] 29.0 mmol/L Normal 21.0-32.0 [facility] Comment on above: Performed By: #### C MP ####[facility] Uafpkojadb4669[address] [place], [place] [address]Dr. Nahed Yañez Creatinine [Mass/Vol] 0.89 mg/dL Normal 0.55-1.02 [facility] Comment on above: Performed By: #### C MP ####[facility] Danknlhrat507[address] [place], [place] [address]Dr. Nahed Yañez EGFR-AF PUERTO RICAN >60 Normal >=60 [facility] Comment on above: Performed By: #### C MP ####[facility] Pumhngavjc11[address] [place], [place] [address]Dr. Nahed Yañez EGFR-NON AF PUERTO RICAN >60 Normal >=60 [facility] Comment on above: Performed By: #### C MP ####[facility] Brpampetgt8290 [place] [address]Dr. Nahed Yañez Globulin (S) [Mass/Vol] 3.7 g/dL Normal [facility] Comment on above: Performed By: #### C MP ####[facility] Otjwydiohx7785 [place] [address]Dr. Nahed Otilio Glucose [Mass/Vol] 182 mg/dL Critically high 74-106 [facility] Comment on above: Performed By: #### C MP ####[facility] Smaiovtqbv5797 [place] [address]Dr. Nahed Yañez Potassium [Moles/Vol] 3.6 mmol/L Normal 3.5-5.1 [facility] Comment on above: Performed By: #### C MP ####[facility] Vutfztayuo0943 [place] [address]Dr. Nahed Yañez Protein [Mass/Vol] 8.0 g/dL Normal 6.4-8.2 [facility] Comment on above: Performed By: #### C MP ####[facility] Ppczoljgnu9878 [place] [address]Dr. Nahed Yañez Sodium [Moles/Vol] 142 mmol/L Normal 136-145 [facility] Comment on above: Performed By: #### C MP ####[facility] Mprndcdzqg5287 [place] [address]Dr. Nahed Yañez Urea nitrogen [Mass/Vol] 8.0 mg/dL Normal 7.0-18.0 [facility] Comment on above: Performed By: #### C MP ####[facility] Rwyxbybjoh[address] [place], [place] [address]Dr. Nahed Yañez Urea nitrogen/Creatinine [Mass ratio] 9.0 mg/mg Normal [facility] Comment on above: Performed By: #### C MP ####[facility] Qgijdlbgtc8625 [place] [address]Dr. Nahed Yañez T4on 10-31-2021 T4 [Mass/Vol] 8.10 ug/dL Normal 4.80-13.[address] [facility] Comment on above: Performed By: #### T 4, TSH, BNP, CMADM ####[facility] Jzazcqcnsj3304 [place] [address]Dr. Nahed Yañez TSHon 10-31-2021 TSH 1.088 uIU/mL Normal 0.358-3.740 [facility] Comment on above: Performed By: #### T 4, TSH, BNP, CMADM ####[facility] Ngnqmlstin1493 [place] [address]Dr. Nahed Yañez URINE MICROSCOPIC ONLYon BACTERIA TRACE Abnormal NONE SEEN [facility] Comment on above: Performed By: #### E YARELIS ALCARAZ ####[facility] Tkckolhvjs9402 [place] [address]Dr. Nahed Yañez Bacteria identified Cx Nom (U) NOT INDICATED Normal [facility] Comment on above: Performed By: #### YARELIS DOVE ####[facility] Jhtcbxgqnm[address] [place], [place] [address]Dr. Nahed Yañez CAST NONE SEEN Normal NONE SEEN [facility] Comment on above: Performed By: #### NUNU DOVERO ####[facility] Uugkjfuvrv06[address] [place], [place] [address]Dr. Nahed Yañez Crystals LM Nom (Urine sed) NONE SEEN Normal NONE SEEN [facility] Comment on above: Performed By: #### YARELIS DOVE ####[facility] Ugkgwhenlc8857[address] [place], [place] [address]Dr. Nahed Yañez Epithelial cells LM Ql (Urine sed) MODERATE Abnormal NONE SEEN /RARE [facility] Comment on above: Performed By: #### NUNU DOVERO ####[facility] Uxrankywuk87[address] [place], [place] [address]Dr. Nahed Yañez MUCOUS SMALL Abnormal NONE SEEN [facility] Comment on above: Performed By: #### NUNU DOVERO ####[facility] Awnozrrdra[address] [place], [place] [address]Dr. Nahed Yañez RBC 2-5 Abnormal 0-2 [facility] Comment on above: Performed By: #### NUNU DOVERO ####[facility] Eqxotabarc0878[address] [place], [place] [address]Dr. Nahed Yañez WBC 2-5 Abnormal NONE SEEN [facility] Comment on above: Performed By: #### NUNU DOVERO ####[facility] Vpypvspzrl[address] [place], [place] [address]Dr. Nahed Yañez XR CHEST 2 Von 10-31-2021 XR CHEST 2 V Normal [facility] CULTURE URINEon 10-30-2021 CULTURE URINE Culture Observations : MODERATE GROWTH OF MIXED GENITAL MIGUEL. NO POTENTIAL PATHOGENS SEEN. Normal [facility] Comment on above: Performed By: #### U RCX ####[facility] [address]brvf[address] [place] [id number]. Nahed Yañez US JESSEE DOP LEG BILon US JESSEE DOP LEG MOHAN Normal [facility] CARDIAC FRANCISCO ADMITon 022 CK [Catalytic activity/Vol] 16 U/L Critically low 26-192 [facility] Comment on above: Performed By: #### C RENZO, CMADM ####[facility] Fdcbvajpnt8908 [place] [address]Dr. Nahed Yañez CK.MB [Mass/Vol] 0.56 ng/mL Normal <=3.60 [facility] Comment on above: Performed By: #### C RENZO, ERICK ####[facility] Exlatpwmbc9627 [place] [address]Dr. Nahed Yañez HSTROP 44.3 pg/mL Normal 4.0-51.3 [facility] Comment on above: Result Comment: CUT- OFF POINTS HAVE BEEN ESTABLISHED BASED ON THE FOURTH UNIVERSAL DEFINITIONS OF MYOCARDIALINFARCTION. THE UPPER REFERENCE LIMIT (URL) OF TROPONIN, DEFINED THE 99TH PERCENTILE OFcTnI DISTRIBUTION IN A REFERENCE POPULATION, HAS BEEN CONFIRMED THE DECISION THRESHOLDFOR [place] DIAGNOSIS. Performed By: #### C ERICK MULLER ####[facility] Iyqmwbetat1046 [place] [address]Dr. Nahed Yañez ANDRE 42 ng/mL Normal 9-82 [facility] Comment on above: Performed By: #### C RENZO, GRISELDADM ####[facility] Dodrhahcxz2504 [place] [address]Dr. Nahed Yañez CBC AUTO DIFFon 09-07-2021 BASO # 0.0 103/ul Normal 0.0-0.1 [facility] Comment on above: Performed By: #### C BC ####[facility] Snsbhjmjmf3757 [place] [address]Dr. Nahed Yañez Basophils/100 WBC (Bld) 0.4 % Normal 0.2-2.0 [facility] Comment on above: Performed By: #### C BC ####[facility] Jwcomihhbs[address]61 [place] [address]Dr. Nahed Yañez EO # 0.2 103/ul Normal 0.0-0.7 [facility] Comment on above: Performed By: #### C BC ####[facility] Eqbbgavswg1018 [place] [address]Dr. Nahed Yañez Eosinophils/100 WBC (Bld) 2.4 % Normal 0.9-7.0 [facility] Comment on above: Performed By: #### C BC ####[facility] Ukmqmelned1646 [place] [address]Dr. Nahed Yañez Erythrocyte distribution width (RBC) [Ratio] 15.1 % Critically high 11.0-15.0 [facility] Comment on above: Performed By: #### C BC ####[facility] Scsyamdkqn13[address] [place], [place] [address]Dr. Nahed Yañez Hematocrit (Bld) [Volume fraction] 42.6 % Normal 36.0-48.0 [facility] Comment on above: Performed By: #### C BC ####[facility] Xujktordtw[address] [place], [place] [address]Dr. Nahed Yañez Hemoglobin (Bld) [Mass/Vol] 13.4 g/dL Normal 12.0-16.0 [facility] Comment on above: Performed By: #### C BC ####[facility] Cesmnhrtlj[address] [place], [place] [address]Dr. Nahed Yañez IG # 0.33 10e3/ul Critically high 0.00-0.03 [facility] Comment on above: Performed By: #### C BC ####[facility] Abmkstrlro[address] [place], [place] [address]Dr. Nahed Yañez IG % 3.9 % Critically high 0.0-0.5 [facility] Comment on above: Performed By: #### C BC ####[facility] Wiphyoqfee39[address] [place], [place] [address]Dr. Nahed Yañez LYMPH # 2.6 103/ul Normal 1.2-3.8 [facility] Comment on above: Performed By: #### C BC ####[facility] Fjjojftkwo4[address] [place], [place] [address]Dr. Nahed Yañez Lymphocytes/100 WBC (Bld) 30.3 % Normal 20.5-60.0 [facility] Comment on above: Performed By: #### C BC ####[facility] Bnijpgusdx80[address] [place] [address]DrShaun Yañez MANUAL DIFF REQ NO Normal [facility] Comment on above: Performed By: #### C BC ####[facility] Nqsistgnxc3185 [place] [address]Dr. Nahed Yañez MCH (RBC) [Entitic mass] 28.6 pg Normal 26.7-34.0 [facility] Comment on above: Performed By: #### C BC ####[facility] Zsruiyirmq[address] [place], [place] [address]Dr. Nahed Yañez MCHC (RBC) [Mass/Vol] 31.5 g/dL Normal 29.9-35.2 [facility] Comment on above: Performed By: #### C BC ####[facility] Ltkndcfulp[address] [place], [place] [address]DrShaun Yañez MCV (RBC) [Entitic vol] 90.8 fL Normal 81.0-99.0 [facility] Comment on above: Performed By: #### C BC ####[facility] Sijaiulrtw[address] [place], [place] [address]DrShaun Yañez MONO # 0.7 103/ul Normal 0.3-0.8 [facility] Comment on above: Performed By: #### C BC ####[facility] Hcllhafzyg[address] [place], [place] [address]DrShaun Yañez Monocytes/100 WBC (Bld) 8.0 % Normal 1.7-12.0 [facility] Comment on above: Performed By: #### C BC ####[facility] Eusqqcsdwr[address] [place], [place] [address]DrShaun Yañez NEUT # 4.7 103/ul Normal 1.4-6.5 [facility] Comment on above: Performed By: #### C BC ####[facility] Ieoectbpau[address] [place], [place] [address]DrShaun Yañez Neutrophils/100 WBC (Bld) 55.0 % Normal 43.0-75.0 [facility] Comment on above: Performed By: #### C BC ####[facility] Xhrguoioaf1538 [place] [address]DrShaun Yañez Platelet mean volume (Bld) [Entitic vol] 8.9 fL Critically low 9.5-13.5 [facility] Comment on above: Performed By: #### C BC ####[facility] Ucgelswexu7201 [place] [address]DrShaun Yañez PLT 270 103/ul Normal 150-450 [facility] Comment on above: Performed By: #### C BC ####[facility] Jagzwmjrna[address] [place], [place] [address]Dr. Nahed Yañez RBC 4.69 106/ul Normal 4.20-5.40 [facility] Comment on above: Performed By: #### C BC ####[facility] Mqlgdqatjf[address] [place], [place] [address]DrShaun Yañez WBC 8.5 103/ul Normal 4.0-11.0 [facility] Comment on above: Performed By: #### C BC ####[facility] Zjqzdpwvmk[address] [place], [place] [address]DrShaun Yañez PROF 14(COMP METB)on 022 Albumin [Mass/Vol] 2.7 g/dL Critically low 3.4-5.[address] [facility] Comment on above: Performed By: #### C ERICK MULLER ####[facility] Cchjkmbsyo[address] [place], [place] [address]DrShaun Yañez Albumin/Globulin [Mass ratio] 0.8 {ratio} Normal [facility] Comment on above: Performed By: #### C ERICK MULLER ####[facility] Lqddvhltmf[address] [place], [place] [address]DrShaun Yañez ALP [Catalytic activity/Vol] 65 U/L Normal 46-116 [facility] Comment on above: Performed By: #### C ERICK MULLER ####[facility] Rrfmewcorr[address] [place], [place] [address]DrShaun Yañez ALT [Catalytic activity/Vol] 27 U/L Normal 14-59 [facility] Comment on above: Performed By: #### C ERICK MULLER ####[facility] Pgyrgvlpkc24[address] [place], [place] [address]Dr. Nahed Yañez Anion gap [Moles/Vol] 10.3 mmol/L Normal [facility] Comment on above: Performed By: #### C ERICK MULLER ####[facility] Nzoztfvclb[address] [place], [place] [address]Dr. Nahed Yañez AST [Catalytic activity/Vol] 11 U/L Critically low 15-37 [facility] Comment on above: Performed By: #### C ERICK MULLER ####[facility] Feaclpehyj[address] [place], [place] [address]Dr. Nahed Yañez Bilirubin [Mass/Vol] 0.3 mg/dL Normal 0.2-1.0 [facility] Comment on above: Performed By: #### C ERICK MULLER ####[facility] Lxysoqdxih93[address] [place], [place] [address]Dr. Nahed Yañez Calcium [Mass/Vol] 8.1 mg/dL Critically low 8.5-10.[address] [facility] Comment on above: Performed By: #### C ERICK MULLER ####[facility] Ropyvvddos75[address] [place], [place] [address]Dr. Nahed Yañez Chloride [Moles/Vol] 98 mmol/L Normal 98-107 [facility] Comment on above: Performed By: #### C ERICK MULLER ####[facility] Xdkbeetnzy3[address] [place], [place] [address]Dr. Nahed Yañez CO2 [Moles/Vol] 32.5 mmol/L Critically high 21.0-32.0 [facility] Comment on above: Performed By: #### C ERICK MULLER ####[facility] Njkltetajd4[address] [place], [place] [address]Dr. Nahed Yañez Creatinine [Mass/Vol] 0.94 mg/dL Normal 0.55-1.02 [facility] Comment on above: Performed By: #### C ERICK MULLER ####[facility] Rthvcftpnj50[address] [place] [id number]. Nahed Yañez EGFR-AF PUERTO RICAN >60 Normal >=60 [facility] Comment on above: Performed By: #### C RENZO, CMAJOSE ####[facility] Jhksfaivha15[address] [place] [address]Dr. Nahed Yañez EGFR-NON AF PUERTO RICAN >60 Normal >=60 [facility] Comment on above: Performed By: #### C RENZO, CMAJOSE ####[facility] Lpvoltgyaw9773 [place] [phone]. Nahed Yañez Globulin (S) [Mass/Vol] 3.2 g/dL Normal [facility] Comment on above: Performed By: #### C RENZO, CMAJOSE ####[facility] Ydczavxvuf7447 [place] [address]Dr. Nahed Yañez Glucose [Mass/Vol] 123 mg/dL Critically high 74-106 [facility] Comment on above: Performed By: #### C RENZO, CMAJOSE ####[facility] Lynvqetfih9056 [place] [address]Dr. Nahed Yañez Potassium [Moles/Vol] 3.8 mmol/L Normal 3.5-5.1 [facility] Comment on above: Performed By: #### C RENZO, CMADM ####[facility] Ocuoccabzh6952 [place] [address]Dr. Nahed Yañez Protein [Mass/Vol] 5.9 g/dL Critically low 6.1-8.[address] [facility] Comment on above: Performed By: #### C RENZO, CMADM ####[facility] Tjfqiesrpu8545 [place] [address]Dr. Nahed Yañez Sodium [Moles/Vol] 137 mmol/L Normal 136-145 [facility] Comment on above: Performed By: #### C RENZO, CMADM ####[facility] Clysmhyxhv5178 [place] [address]Dr. Nahed Yañez Urea nitrogen [Mass/Vol] 20.0 mg/dL Critically high 7.0-18.0 [facility] Comment on above: Performed By: #### C RENZO, CMADM ####[facility] Cxsifggjyg[address] [place], [place] [address]Dr. Nahed Yañez Urea nitrogen/Creatinine [Mass ratio] 21.3 mg/mg Normal [facility] Comment on above: Performed By: #### C MP, CMADM ####[facility] Ccdjuuadez[address] [place], [place] [address]Dr. Nahed Yañez BNPon 09-06-2021 Natriuretic peptide B (Bld) [Mass/Vol] 923.0 pg/mL Critically high <=900.0 [facility] Comment on above: Performed By: #### B MP, BNP, HSTROPN ####[facility] Ayyxwxuhac6525[address] [place], [place] [address]Dr. Nahed Yañez CBC AUTO DIFFon 09-06-2021 BASO # 0.1 103/ul Normal 0.0-0.1 [facility] Comment on above: Performed By: #### C BC ####[facility] Nqmcwghktl[address] [place], [place] [address]Dr. Nahed Yañez Basophils/100 WBC (Bld) 0.6 % Normal 0.2-2.0 [facility] Comment on above: Performed By: #### C BC ####[facility] Erbwuedymf[address] [place], [place] [address]Dr. Nahed Yañez EO # 0.3 103/ul Normal 0.0-0.7 [facility] Comment on above: Performed By: #### C BC ####[facility] Fswrsfbfzq[address] [place], [place] [address]Dr. Nahed Yañez Eosinophils/100 WBC (Bld) 3.0 % Normal 0.9-7.0 [facility] Comment on above: Performed By: #### C BC ####[facility] Srkaqzeoxt15[address] [place], [place] [address]Dr. Nahed Yañez Erythrocyte distribution width (RBC) [Ratio] 15.0 % Normal 11.0-15.0 [facility] Comment on above: Performed By: #### C BC ####[facility] Yesylvklsq[address] [place], [place] [address]Dr. Nahed Yañez Hematocrit (Bld) [Volume fraction] 48.1 % Critically high 36.0-48.0 [facility] Comment on above: Performed By: #### C BC ####[facility] Eqhrspxwuv4627 [place] [address]Dr. Nahed Yañez Hemoglobin (Bld) [Mass/Vol] 15.5 g/dL Normal 12.0-16.0 [facility] Comment on above: Result Comment: delt a check called to Manisha WALKER Performed By: #### C BC ####[facility] Mzdujoglio67[address] [place] [address]Dr. Nahed Yañez IG # 0.46 10e3/ul Critically high 0.00-0.03 [facility] Comment on above: Performed By: #### C BC ####[facility] Nuoqrykude3239 [place] [address]Dr. Nahed Yañez IG % 4.2 % Critically high 0.0-0.5 [facility] Comment on above: Performed By: #### C BC ####[facility] Nyocuzgmjc0186 [place] [address]Dr. Nahed Yañez LYMPH # 2.2 103/ul Normal 1.2-3.8 [facility] Comment on above: Performed By: #### C BC ####[facility] Wbveivdndf5755 [place] [address]Dr. Nahed Yañez Lymphocytes/100 WBC (Bld) 20.6 % Normal 20.5-60.0 [facility] Comment on above: Performed By: #### C BC ####[facility] Zbaichdpfv0667 [place] [address]Dr. Nahed Yañez MANUAL DIFF REQ NO Normal [facility] Comment on above: Performed By: #### C BC ####[facility] Lmvlgzlqtz6136 [place] [address]Dr. Nahed Yañez MCH (RBC) [Entitic mass] 28.2 pg Normal 26.7-34.0 [facility] Comment on above: Performed By: #### C BC ####[facility] Glqblyrlby0360 [place] [phone]. Nahed Yañez MCHC (RBC) [Mass/Vol] 32.2 g/dL Normal 29.9-35.2 [facility] Comment on above: Performed By: #### C BC ####[facility] Kvtwroflmf8664 [place] [phone]. Nahed Yañez MCV (RBC) [Entitic vol] 87.5 fL Normal 81.0-99.0 [facility] Comment on above: Performed By: #### C BC ####[facility] Cfgbxzjheu8379 [place] [phone]. Nahed Yañez MONO # 0.7 103/ul Normal 0.3-0.8 [facility] Comment on above: Performed By: #### C BC ####[facility] Ujjxpixheg2055 [place] [phone]. Nahed Yañez Monocytes/100 WBC (Bld) 6.4 % Normal 1.7-12.0 [facility] Comment on above: Performed By: #### C BC ####[facility] Xupkaktwbp2747 [place] [phone]. Nahed Yañez NEUT # 7.1 103/ul Critically high 1.4-6.5 [facility] Comment on above: Performed By: #### C BC ####[facility] Gpdboyhwaw8148 [place] [phone]. Nahed Yañez Neutrophils/100 WBC (Bld) 65.2 % Normal 43.0-75.0 [facility] Comment on above: Performed By: #### C BC ####[facility] Adojpjeiwe5516 [place] [phone]. Nahed Yañez Platelet mean volume (Bld) [Entitic vol] 8.9 fL Critically low 9.5-13.5 [facility] Comment on above: Performed By: #### C BC ####[facility] Gwpnkvphcs5106 [place] [phone]. Nahed Otilio PLT 390 103/ul Normal 150-450 [facility] Comment on above: Performed By: #### C BC ####[facility] Zorvexwtbe3431 [place], [place] [address]Qf. Nahed Yañez RBC 5.50 106/ul Critically high 4.20-5.40 [facility] Comment on above: Performed By: #### C BC ####[facility] Mvqufltgju6800 [place] [phone]. Nahed Yañez WBC 10.8 103/ul Normal 4.0-11.0 [facility] Comment on above: Performed By: #### C BC ####[facility] Zfqeialzqv3684 [place] [phone]. Nahed Yañez CULTURE BLOODon 09-06-2021 Microscopic examination of blood, culture Culture Observations: NO GROWTH AT 5 DAYS. Isolate 1 BC_BA_NA Normal [facility] Comment on above: Performed By: #### B LDCX2 ####[facility] Glbnyxecwk1545 [place] [phone]. Nahed Yañez Microscopic examination of blood, culture Culture Observations: NO GROWTH AT 5 DAYS. Normal [facility] Comment on above: Performed By: #### B LDCX1 ####[facility] Nirqponldh1895 [place] [phone]. Nahed Yañez [facility]13 SARS-CoV-2 (COVID-19) RNA MIRNA+probe Ql (Unsp spec) Not detected Normal NOT DETECTED [facility] Comment on above: Result [...] for this test is supported by the [place] of Health and Human Service's declaration that [...] be used). Performed By: #### C VDTBH ####[facility] Fexubbcxvl6440 [place] [address]Dr. Nahed Yañez LACTATE/LACTIC ACIDon 2021 Lactate [Moles/Vol] 0.1 mmol/L Critically low 0.4-2.0 [facility] Comment on above: Performed By: #### L ACT ####[facility] Adffiihxjq3362 [place] [address]Dr. Nahed Yañez Lactate [Moles/Vol] 1.5 mmol/L Normal 0.4-2.0 [facility] Comment on above: Performed By: #### L ACT ####[facility] Nsfdgubyic[address] [place], [place] [address]Dr. Nahed Yañez POINT OF CARE GLUCOSEon 08-13 Glucose [Mass/Vol] 201 mg/dL Critically high 74-106 [facility] Comment on above: Performed By: #### P OCGLUC ####[facility] Bgvnngqxqp[address] [place], [place] [address]Dr. Nahed Yañez PROF CHEM 8 (BAS METB)on Anion gap [Moles/Vol] 14.8 mmol/L Normal [facility] Comment on above: Performed By: #### B MP, BNP, HSTROPN ####[facility] Cvscniejjf6512 [place] [address]Dr. Nahed Yañez Calcium [Mass/Vol] 8.8 mg/dL Normal 8.5-10.1 [facility] Comment on above: Performed By: #### B MP, BNP, HSTROPN ####[facility] Voytpqikot58[address] [place], [place] [address]Dr. Nahed Yañez Chloride [Moles/Vol] 95 mmol/L Critically low 98-107 [facility] Comment on above: Performed By: #### B MP, BNP, HSTROPN ####[facility] Aqxgiupruz40[address] [place], [place] [address]Dr. Nahed Yañez CO2 [Moles/Vol] 28.7 mmol/L Normal 21.0-32.0 [facility] Comment on above: Performed By: #### B MP, BNP, HSTROPN ####[facility] Evsosdnhjk0174 [place] [address]Dr. Nahed Yañez Creatinine [Mass/Vol] 0.98 mg/dL Normal 0.55-1.02 [facility] Comment on above: Performed By: #### B MP, BNP, HSTROPN ####[facility] Jcihgixfvb39[address] [place], [place] [address]Dr. Nahed Yañez EGFR-AF PUERTO RICAN >60 Normal >=60 [facility] Comment on above: Performed By: #### B MP, BNP, HSTROPN ####[facility] Slplbpqvbo68[address] [place], [place] [address]Dr. Rosemarieashley Otilio EGFR-NON AF PUERTO RICAN 58 mL/min/1.73m2 Critically low >=60 [facility] Comment on above: Performed By: #### B MP, BNP, HSTROPN ####[facility] Vwsfndcslr[address] [place], [place] [address]Dr. Rosemarieashley Yañez Glucose [Mass/Vol] 150 mg/dL Critically high 74-106 [facility] Comment on above: Performed By: #### B MP, BNP, HSTROPN ####[facility] Rhcqmlifey2[address] [place], [place] [address]Dr. Nahed Yañez Potassium [Moles/Vol] 4.5 mmol/L Normal 3.5-5.1 [facility] Comment on above: Performed By: #### B MP, BNP, HSTROPN ####[facility] Opxrjtmvgg[address] [place], [place] [address]Dr. Rosemarieashley Yañez Sodium [Moles/Vol] 134 mmol/L Critically low 136-145 [facility] Comment on above: Performed By: #### B MP, BNP, HSTROPN ####[facility] Uytvxspkho[address] [place], [place] [address]Dr. Nahed Yañez Urea nitrogen [Mass/Vol] 19.0 mg/dL Critically high 7.0-18.0 [facility] Comment on above: Performed By: #### B MP, BNP, HSTROPN ####[facility] Asdwjeaigh7401 [place], [place] [address]Vb. Nahed Yañez Urea nitrogen/Creatinine [Mass ratio] 19.4 mg/mg Normal [facility] Comment on above: Performed By: #### B MP, BNP, HSTROPN ####[facility] Xarlujhvjj2865 [place] [phone]. Nahed Yañez TROPONIN, HIGH SENSITIVITYon 09-06-2021 HSTROP 50.4 pg/mL Normal 4.0-51.3 [facility] Comment on above: Result Comment: CUT- OFF POINTS HAVE BEEN ESTABLISHED BASED ON THE FOURTH UNIVERSAL DEFINITIONS OF MYOCARDIALINFARCTION. THE UPPER REFERENCE LIMIT (URL) OF TROPONIN, DEFINED THE 99TH PERCENTILE OFcTnI DISTRIBUTION IN A REFERENCE POPULATION, HAS BEEN CONFIRMED THE DECISION THRESHOLDFOR W[place] DIAGNOSIS. Performed By: #### B MP, BNP, HSTROPN ####[facility] Wfhlzjmyis5[address] [place] [phone]. Nahed Yañez XR CHEST 1 Von 09-06-2021 XR CHEST 1 V Normal [facility] CBC with Diffon 09-08-2018 Abs. Basophil 0.03 k/uL Normal 0.00-0.20 [facility] Comment on above: Performed By: #### L IP, CMPX, CDP #### [facility] [address] [place] [address] Plan Rep: Nino Farias MD Abs.Imm.Granulocyte 0.05 k/uL Normal 0.00-0.30 [facility] Comment on above: Performed By: #### L IP, CMPX, CDP #### [facility] [address] [place] [address] Plan Rep: Nino Farias MD Abs.Neutrophil (Seg) 11.30 k/uL High 1.50-8.10 [facility] Comment on above: Performed By: #### L IP, CMPX, CDP #### [facility] [address] [place], [place] [id number] Plan Rep: Nino Farias MD Basophils/100 WBC (Bld) 0 % Normal 0-2 [facility] Comment on above: Performed By: #### L IP, CMPX, CDP #### [facility] [address] [place], [place] [id number] Plan Rep: Nino Farias MD Eosinophils #/vol (Bld) 0.17 10*3/uL Normal 0.00-0.44 [facility] Comment on above: Performed By: #### L IP, CMPX, CDP #### [address] [place], [facility]83 Plan Rep: Nino Farias MD Eosinophils/100 WBC (Bld) 1 % Normal 1-4 [facility] Comment on above: Performed By: #### L IP, CMPX, CDP #### [address] [place], [facility]83 Plan Rep: Nino Farias MD Erythrocyte distribution width Ratio (RBC) 12.5 % Normal 11.8-14.4 [facility] Comment on above: Performed By: #### L IP, CMPX, CDP #### [address] [place], [facility]83 Plan Rep: Nino Farias MD Hematocrit Volume Fraction (Bld) 36.8 % Normal 36.3-47.1 [facility] Comment on above: Performed By: #### L IP, CMPX, CDP #### [address] [place], [place] [id number] Plan Rep: Nino Farias MD Hemoglobin mass conc (Bld) 11.6 g/dL Low 11.9-15.1 [facility] Comment on above: Performed By: #### L IP, CMPX, CDP #### [address] [place], [facility]83 Plan Rep: Nino aFrias MD Immature granulocytes #/vol (Bld) 0 % Normal 0 [facility] Comment on above: Performed By: #### L IP, CMPX, CDP #### [facility] [address] [place], [place] [id number] Plan Rep: Nino Farias MD Lymphocytes #/vol (Bld) 2.56 10*3/uL Normal 1.10-3.70 [facility] Comment on above: Performed By: #### L IP, CMPX, CDP #### [facility] [address] [place], [facility]83 Plan Rep: Nino Farias MD Lymphocytes/100 WBC (Bld) 18 % Low 24-43 [facility] Comment on above: Performed By: #### L IP, CMPX, CDP #### [address] [place], [facility]83 Plan Rep: Nino Farias MD MCH Entitic mass (RBC) 30.6 pg Normal 25.2-33.5 [facility] Comment on above: Performed By: #### L IP, CMPX, CDP #### [address] [place], [facility]83 Plan Rep: Nino Farias MD MCHC mass conc (RBC) 31.5 g/dL Normal 28.4-34.8 [facility] Comment on above: Performed By: #### L IP, CMPX, CDP #### [address] [place], [place] [id number] Plan Rep: Nino Farias MD MCV Entitic volume (RBC) 97.1 fL Normal 82.6-102.9 [facility] Comment on above: Performed By: #### L IP, CMPX, CDP #### [facility] [address] [place], [place] 540[address]83 Plan Rep: Nino Farias MD Monocytes #/vol (Bld) 0.55 10*3/uL Normal 0.10-1.20 [facility] Comment on above: Performed By: #### L IP, CMPX, CDP #### [facility] [address] [place], [place] 3898683 Plan Rep: Nino Farias MD Monocytes/100 WBC (Bld) 4 % Normal 3-12 [facility] Comment on above: Performed By: #### L IP, CMPX, CDP #### [facility] [address] [place], [place] [address] Plan Rep: Nino Farias MD Neutrophil (Seg) 77 % High 36-65 [facility] Comment on above: Performed By: #### L IP, CMPX, CDP #### [facility] [address] [place], [place] [id number] Plan Rep: Nino Farias MD NRBC Automated 0.0 per 100 WBC Normal 0.0 [facility] Comment on above: Performed By: #### L IP, CMPX, CDP #### [facility] [address] [place], [place] 4160383 Plan Rep: Nino Farias MD Platelet mean volume Entitic volume (Bld) 9.2 fL Normal 8.1-13.5 [facility] Comment on above: Performed By: #### L IP, CMPX, CDP #### [facility] [address] [place], [place] [address] Plan Rep: Nino Farias MD Platelets #/vol (Bld) 305 10*3/uL Normal 138-453 [facility] Comment on above: Performed By: #### L IP, CMPX, CDP #### [facility] [address] [place], [place] [address]26[address] Plan Rep: Nino Farias MD RBC #/vol (Bld) 3.79 10*6/uL Low 3.95-5.11 [facility] Comment on above: Performed By: #### L IP, CMPX, CDP #### [facility] [address] [place] [address] Plan Rep: Nino Farias MD WBC #/vol (Bld) 14.7 10*3/uL High 3.5-11.3 [facility] Comment on above: Performed By: #### L IP, CMPX, CDP #### [facility] [address] [place], [place] [id number] Plan Rep: Nino Farias MD Auto Diff Performed NOT REPORTED Normal [facility] Comment on above: Performed By: #### L IP, CMPX, CDP #### [address] [place] [address] Plan Rep: Nino Farias MD Platelets #/vol (Bld) NOT REPORTED Normal [facility] Comment on above: Performed By: #### L IP, CMPX, CDP #### [facility] [address] [place] [address] [place] [address] Plan Rep: Nino Farias MD RBC morphology finding Nom (Bld) NOT REPORTED Normal [facility] Comment on above: Performed By: #### L IP, CMPX, CDP #### [address] [place] [address] Plan Rep: Nino Farias MD WBC Morphology NOT REPORTED Normal [facility] Comment on above: Performed By: #### L IP, CMPX, CDP #### [facility] [address] [place] [address] [place] [address] Plan Rep: Nino Farias MD Comp Metabolic Pr/rfx MGon 0 09-08-2018 ALT enzyme act/vol U/L Low -33 [facility] Comment on above: Performed By: #### L IP, CMPX, CDP #### [facility] [address] [place], [place] 832[address]83 Plan Rep: Nino Farias MD (cont.) Normal [facility] Comment on above: Result Comment: Aver age GFR for 50-59 years old: 93 mL/min/1.73sq m Chronic Kidney Disease: <60 mL/min/1.73sq m Kidney failure: <15 mL/min/1.73sq m eGFR calculated using average adult body mass. Additional eGFR calculator available at: http://www.Artimi/multiple_crcl_2012.htm Performed By: #### L IP, CMPX, CDP #### [facility] [address] [place] [address] Plan Rep: Nino Farias MD Albumin mass conc 4.0 g/dL Normal 3.5-5.2 [facility] Comment on above: Performed By: #### L IP, CMPX, CDP #### [facility] [address] [place] [address] Plan Rep: Nino Farias MD Albumin/Globulin mass ratio 1.3 {ratio} Normal 1.0-2.5 [facility] Comment on above: Performed By: #### L IP, CMPX, CDP #### [facility] [address] [place] [address] Plan Rep: Nino Farias MD Alkaline Phos 58 U/L Normal 35-104 [facility] Comment on above: Performed By: #### L IP, CMPX, CDP #### [facility] [address] [place] [address] Plan Rep: Nino Farias MD Anion gap molar conc 8 mmol/L Low 9-17 [facility] Comment on above: Performed By: #### L IP, CMPX, CDP #### [facility] [address] [place] [address] Plan Rep: Nino Farias MD AST enzyme act/vol 20 U/L Normal <32 [facility] Comment on above: Performed By: #### L IP, CMPX, CDP #### [facility] [address] [place], [place] [id number] Plan Rep: Nino Farias MD Bilirubin Ql (U) 0.17 mg/dL Low 0.3-1.2 [facility] Comment on above: Performed By: #### L IP, CMPX, CDP #### [facility] [address] [place], [place] [id number] Plan Rep: Nino Farias MD BUN/CRE Ratio 15 Normal 9-20 [facility] Comment on above: Performed By: #### L IP, CMPX, CDP #### [facility] [address] [place], [place] [id number] Plan Rep: Nino Farias MD Calcium mass conc 9.3 mg/dL Normal 8.6-10.4 [facility] Comment on above: Performed By: #### L IP, CMPX, CDP #### [facility] [address] [place], [place] [id number] Plan Rep: Nino Farias MD Chloride molar conc 97 mmol/L Low 98-107 [facility] Comment on above: Performed By: #### L IP, CMPX, CDP #### [facility] [address] [place] [address] Dr. [place], [place] [id number] Plan Rep: Nino Farias MD CO2 molar conc 31 mmol/L Normal 20-31 [facility] Comment on above: Performed By: #### L IP, CMPX, CDP #### [facility] [address] [place], [place] [id number] Plan Rep: Nino Farias MD Creatinine mass conc 1.22 mg/dL High 0.50-0.90 [facility] Comment on above: Performed By: #### L IP, CMPX, CDP #### [facility] [address] [place], [place] [id number] Plan Rep: Nino Farias MD GFR, Amer 55 mL/min Low >60 [facility] Comment on above: Performed By: #### L IP, CMPX, CDP #### [facility] [address] [place] [address] Plan Rep: Nino Farias MD GFR,non Amer 45 mL/min Low >60 [facility] Comment on above: Performed By: #### L IP, CMPX, CDP #### [facility] [address] [place] [address] Plan Rep: Nino Farias MD Glucose mass conc 93 mg/dL Normal 70-99 [facility] Comment on above: Performed By: #### L IP, CMPX, CDP #### [facility] [address] [place] [address] Plan Rep: Nino Farias MD Potassium molar conc 4.5 mmol/L Normal 3.7-5.3 [facility] Comment on above: Performed By: #### L IP, CMPX, CDP #### [facility] [address] [place] [address] Plan Rep: Nino Farias MD Protein mass conc 7.0 g/dL Normal 6.4-8.3 [facility] Comment on above: Performed By: #### L IP, CMPX, CDP #### [facility] [address] [place] [address] Plan Rep: Nino Farias MD Sodium molar conc 136 mmol/L Normal 135-144 [facility] Comment on above: Performed By: #### L IP, CMPX, CDP #### [facility] [address] [place] [address] Plan Rep: Nino Farias MD Staging: Normal [facility] Comment on above: Result Comment: Stag e 1: Some kidney damage normal GFR Stage 2: Mild kidney damage GFR 60-89 Stage 3: Moderate kidney damage GFR 30-59 Stage 4: Severe kidney damage GFR 15-29 Stage 5: Severe kidney damage GFR <15 ESRD - chronic treatment by dialysis or transplant Performed By: #### L IP, CMPX, CDP #### [facility] [address] [place], [place] [phone] Plan Rep: Nino Farias MD Urea nitrogen mass conc 18 mg/dL Normal 6-20 [facility] Comment on above: Performed By: #### L IP, CMPX, CDP #### [facility] [address] [place], [place] [phone] Plan Rep: Nino Farias MD Lactic Acidon 09-08-2018 Lactate molar conc 1.2 mmol/L Normal 0.5-2.2 [facility] Comment on above: Performed By: #### L AC #### [facility] [address] [place], [place] 6878783 Plan Rep: Nino Farias MD Lipaseon 09-08-2018 Lipase enzyme act/vol 27 U/L Normal 13-60 [facility] Comment on above: Performed By: #### L IP, CMPX, CDP #### [facility] [address] [place], [place] [id number] Plan Rep: Nino Farias MD UA w/Reflex Cultureon 2018 Acetoacetic Acid,Ur Negative Normal NEG [facility] Comment on above: Performed By: #### U MICAO, UAX #### [facility] [address] [place], [place] [phone] Plan Rep: Nino Farias MD Bilirubin.direct mass conc SMALL Abnormal NEG [facility] Comment on above: Performed By: #### U MICAO, UAX #### [facility] [address] [place] [address] Plan Rep: Nino Farias MD Color Nom (U) YELLOW Normal YEL [facility] Comment on above: Performed By: #### U MICAO, UAX #### [facility] [address] [place] [address] Plan Rep: Nino Farias MD Glucose mass conc Negative Normal NEG [facility] Comment on above: Performed By: #### U MICAO, UAX #### [facility] [address] [place], [place] [phone] Plan Rep: Nino Farias MD Hemoglobin mass conc (Bld) Negative Normal NEG [facility] Comment on above: Performed By: #### U MICAO, UAX #### [facility] [address] [place], [place] 1421083 Plan Rep: Nino Farias MD Leuckocyte Esterase Negative Normal NEG [facility] Comment on above: Performed By: #### U MICAO, UAX #### [facility] [address] [place], [place] [phone] Plan Rep: Nino Farias MD Nitrite,Ur Negative Normal NEG [facility] Comment on above: Performed By: #### U MICAO, UAX #### [facility] [address] [place] [address] Plan Rep: Nino Farias MD PH,Ur 5.5 Normal 5.0-9.0 [facility] Comment on above: Performed By: #### U MICAO, UAX #### [facility] [address] [place] [address] Plan Rep: Nino Farias MD Protein mass conc Negative Normal [facility] Comment on above: Performed By: #### U MICAO, UAX #### [facility] [address] [place], [place] 2960083 Plan Rep: Nino Farias MD Spec. Marissa,Ur 1.010 Normal 1.010-1.020 [facility] Comment on above: Performed By: #### U MICAO, UAX #### [facility] [address] [place], [place] 8807083 Plan Rep: Nino Farias MD Turbidity CLEAR Normal CLEAR [facility] Comment on above: Performed By: #### U MICAO, UAX #### [facility] [address] [place] [address] Plan Rep: Nino Farias MD Urobilinogen,Ur Normal Normal NORM [facility] Comment on above: Performed By: #### U MICAO, UAX #### [facility] [address] [place] [address] Plan Rep: Nino Farias MD Comment NOT REPORTED Normal [facility] Comment on above: Performed By: #### U MICAO, UAX #### [facility] [address] [place] [address] Plan Rep: Nino Farias MD Urinalysis,Microon 9 ----- Normal [facility] Comment on above: Performed By: #### U MICAO, UAX #### [facility] [address] [place], [place] 1827183 Plan Rep: Nino Farias MD Bacteria LM.HPF #/area (Urine sed) TRACE Abnormal NONE [facility] Comment on above: Performed By: #### U MICAO, UAX #### [facility] [address] [place], [place] [phone] Plan Rep: Nino Farias MD Epithelial cells LM.HPF #/area (Urine sed) None Normal 0-25 [facility] Comment on above: Performed By: #### U MICAO, UAX #### [facility] [address] [place], [place] 748[address]83 Plan Rep: Nino Farias MD RBC #/vol (U) None Normal 0-2 [facility] Comment on above: Performed By: #### U MICAO, UAX #### [facility] [address] [place] [address] Plan Rep: Nino Farias MD WBC #/vol (U) 0 TO 2 Normal 0-5 [facility] Comment on above: Performed By: #### U MICAO, UAX #### [facility] [address] [place], [place] [phone] Plan Rep: Nino Farias MD Amorphous sediment LM Ql (Urine sed) NOT REPORTED Normal NONE [facility] Comment on above: Performed By: #### U MICAO, UAX #### [facility] [address] [place] [address] Plan Rep: Nino Farias MD Casts LM.LPF #/area (Urine sed) NOT REPORTED Normal [facility] Comment on above: Performed By: #### U MICAO, UAX #### [facility] [address] [place] [address] Plan Rep: Nino Farias MD Crystals LM Nom (Urine sed) NOT REPORTED Normal [facility] Comment on above: Performed By: #### U MICAO, UAX #### [facility] [address] [place] [address] Plan Rep: Nino Farias MD Epithelial, Renal NOT REPORTED Normal 0 [facility] Comment on above: Performed By: #### U MICAO, UAX #### [facility] [address] [place], [place] 7964083 Plan Rep: Nino Farias MD Mucus Strands NOT REPORTED Normal [facility] Comment on above: Performed By: #### U MICAO, UAX #### [facility] [address] [place] [address] Plan Rep: Nino Farias MD Other Observations NOT REPORTED Normal NREQ [facility] Comment on above: Performed By: #### U MICAO, UAX #### [facility] [address] [place] [address] Plan Rep: Nino Farias MD Trichomonas NOT REPORTED Normal NONE [facility] Comment on above: Performed By: #### U MICAO, UAX #### [facility] [address] [place] [address] Plan Rep: Nino Farias MD Yeast LM Ql (Urine sed) NOT REPORTED Normal NONE [facility] Comment on above: Performed By: #### U MICAO, UAX #### [facility] [address] [place] [address] Plan Rep: Nino Farias MD Vital Signs Date Time Vital Sign Value Performing Clinician Faci lity 07-05-2023 22:13-0500 Diastolic blood pressure 74 mm[Hg] Arsenio Martin [facility] 07-05-2023 22:13-0500 Heart rate 62 /min Arsenio Mario [facility] 07-05-2023 22:13-0500 Mean blood pressure 85 mm[Hg] Arsenio Mario [facility] 07-05-2023 22:13-0500 Respiratory rate 14 /min Arsenio Mario [facility] 07-05-2023 22:13-0500 SaO2% (BldA) [Mass fraction] 99 % Arsenio Mario [facility] 07-05-2023 22:13-0500 Systolic blood pressure 107 mm[Hg] Arsenio Mario [facility] 07-05-2023 21:49-0500 Diastolic blood pressure 69 mm[Hg] Arsenio Mario [facility] 07-05-2023 21:49-0500 Heart rate 59 /min Arsenio Mario [facility] 07-05-2023 21:49-0500 Mean blood pressure 80 mm[Hg] Arsenio Mario [facility] 07-05-2023 21:49-0500 Respiratory rate 15 /min Arsenio Martin [facility] 07-05-2023 21:49-0500 SaO2% (BldA) [Mass fraction] 97 % Arsenio Mario [facility] 07-05-2023 21:49-0500 Systolic blood pressure 101 mm[Hg] Arsenio Mario [facility] 07-05-2023 21:02-0500 Diastolic blood pressure 77 mm[Hg] Arsenio Mario [facility] 07-05-2023 21:02-0500 Heart rate 60 /min Arsenioulises Martin [facility] 07-05-2023 21:02-0500 Mean blood pressure 86 mm[Hg] Arsenio Martin [facility] 07-05-2023 21:02-0500 Respiratory rate 16 /min Arsenio Martin [facility] 07-05-2023 21:02-0500 SaO2% (BldA) [Mass fraction] 99 % Arsenio Mario [facility] 07-05-2023 21:02-0500 Systolic blood pressure 105 mm[Hg] Arsenio Martin [facility] 07-05-2023 17:45-0500 Body temperature 97.52 [degF] Arsenio Martin [facility] 07-05-2023 16:27-0500 Body temperature 96.44 [degF] Arsenio Martin [facility] 07-05-2023 15:15-0500 gluc 136 mg/dL Arsenio Martin [facility] 07-05-2023 15:15-0500 gluc Arsenioulises Martin [facility] 07-05-2023 15:02-0500 Body temperature 95.9 [degF] Arsenio Mario [facility] 07-05-2023 15:02-0500 Heart rate 54 /min Arsenio Mario [facility] 07-05-2023 15:02-0500 Respiratory rate 16 /min Arsenio Mario [facility] 08-09-2022 17:25-0400 Diastolic blood pressure 64 mm[Hg] Arsenio Mario [facility] 08-09-2022 17:25-0400 Heart rate 75 /min Arsenio Mario [facility] 08-09-2022 17:25-0400 Mean blood pressure 83 mm[Hg] Arsenio Mario [facility] 08-09-2022 17:25-0400 Respiratory rate 16 /min Arsenio Mario [facility] 08-09-2022 17:25-0400 SaO2% (BldA) [Mass fraction] 96 % Arsenio Mario [facility] 08-09-2022 17:25-0400 Systolic blood pressure 122 mm[Hg] Arsenio Mario [facility] 08-09-2022 16:00-0400 Diastolic blood pressure 56 mm[Hg] Arsenio Mario [facility] 08-09-2022 16:00-0400 Heart rate 64 /min Arsenio Mario [facility] 08-09-2022 16:00-0400 Mean blood pressure 72 mm[Hg] Arsenio Mario [facility] 08-09-2022 16:00-0400 SaO2% [...] (BldA) [Mass fraction] 94.1 % Arsenio Martin [facility] Resp Auto SS 08-09-2022 13:10-0400 Body temperature 98.24 [degF] Arsenio Martin [facility] 08-09-2022 13:10-0400 Heart rate 70 /min Arsenio Martin [facility] 08-09-2022 13:10-0400 Respiratory rate 18 /min Arsenio Martin [facility] Encounters Encounter Date Encounter Type Care Provider Facility Start: 09-10-2023 End: 09-10-2023 ambulatory EHAB [facility] Start: 08-11-2023 Evaluation and management of inpatient [facility] Start: 08-10-2023 Evaluation and management of inpatient [facility] Start: 08-10-2023 End: 08-11-2023 [facility]: 07-31-2023 End: 07-31-2023 ambulatory VINAY CHAPA [facility] Start: 07-11-2023 Evaluation and management of inpatient LOREE CHANCE [facility] Start: 07-08-2023 Evaluation and management of inpatient BARRETT LARSON [facility] Start: 07-06-2023 Evaluation and management of inpatient ISAIAHLAYNE LARSON [facility] Start: 07-06-2023 End: 07-11-2023 Evaluation and management of inpatient ARSENIO MARTIN [facility] Start: 07-05-2023 End: 07-06-2023 Emergency department patient visit Arsenio Martin Facility:[facility] Start: 07-05-2023 End: 07-05-2023 Emergency department patient visit Arsenio Martin [facility] Start: 06-29-2023 Evaluation and management of inpatient ROSALBA OLIVASWinston [facility] Start: 06-29-2023 End: 07-02-2023 Evaluation and management of inpatient SOCORRO [place] CASTRO [facility] Start: 08-22-2022 End: 08-24-2022 Evaluation and management of inpatient DR ЕКАТЕРИНА ROBERT . Facility: Start: 08-09-2022 End: 08-09-2022 Emergency department patient visit Arsenio Martin Facility:[facility] Start: 08-09-2022 End: 08-09-2022 Emergency department patient visit Arsenio Martin [facility] Start: 07-30-2022 End: 08-01-2022 Evaluation and management of inpatient DR ЕКАТЕРИНА ROBERT . Facility: Start: 07-27-2022 End: 07-28-[address] ЕКАТЕРИНА ROBERT . Facility: Start: 05-08-2022 End: 05-09-[address] ЕКАТЕРИНА ROBERT . Facility:[facility] Start: 01-31-2022 End: 01-31-[address] ЕКТАЕРИНА ROBERT . Facility:[facility] Start: 11-01-2021 End: 11-03-2021 Evaluation and management of inpatient TAMIE FAJARDO Facility:[facility] Start: 10-31-2021 End: 11-01-2021 Evaluation and management of inpatient DR ЕКАТЕРИНА ROBERT . Facility: Start: 09-28-2021 End: 09-29-[address] ЕКАТЕРИНА ROBERT . Facility:[facility] Start: 09-06-2021 End: 09-07-[address] ЕКАТЕРИНА ROBERT . Facility: Start: 03-04-2021 End: 03-04-2021 Emergency department patient visit Magdalena Oconnor Facility:[facility] Start: 09-08-2018 End: 09-08-2018 Emergency department patient visit KEISHA DORADO JR [facility] Procedures Date Procedure Procedure Detail Performing Clinician Start: 08-02-2022 Microscopic examinat ion of blood, culture DR ЕКАТЕРИНА ROBERT . Comment on above: Performed By: #### B [id number] ####[facility] [id number] [place] [id number]. Nahed Otilio Start: 11-02-2021 Antibody screen SAVANNAHI SA AD Comment on above: Performed By: #### 3 [id number], 66581 #### [facility] [address] [place] [address], [facility] Start: 07-16-2019 Phalangectomy of toe Fabián [...] Martin Payers Date Payer Category Payer Medicare [id number] 2021 Self-pay 2018 Medicare [id number] 1960 Unknown [id number] 2.16.8 [id number] 1961 Unknown [id number] 2.16.8 [id number] 1961 Unknown [id number] 2.16.84 [id number] 1961 Unknown [id number] 2.16.84 [id number] 1961 Unknown [id number] 2.16.84 0.1.088898.3.579.2.593 1961 Unknown [id number] 2.16.84 0.1.602719.3.579.2.593 1961 Unknown [id number] 2.16.84 [id number] 1961 Unknown [id number] 2.16.84 0.1.014477.3.579.2.593 1961 Unknown [id number] 2.16.84 [id number] 1961 Unknown [id number] 2.16.84 0.1.387654.3.579.2.593 1961 Unknown [id number] 2.16.8 [id number] 1961 Unknown [id number] 2.16.8 [id number] 1959 Unknown [id number] Unknown [id number] 2.16.8 [id number] Social History Date Type Detail Facility Start: 08-09-2022 Tobacco smoking status Heavy t obacco smoker (finding) [facility] Comment on above: 2 cigarettes a day Sex Assigned At Female [facility] Functional Status Date Assessment Result Facility 07-05-2023 Functional Status N/A [facility] 08-09-2022 Functional Status N/A [facility] Clinical Notes 11-03-2021 to 09-10-2023 Note Date & Type Note Facility 09-10-2023 Note [facility] Cardiology Clinic Note Chief Complaint: Patient here for follow up [facility]. She is doing much better and isn't having as much chest pain. She was started on isosorbide and carvedilol. She's breathing much better. HPI: Vivian Vann is a 63 y.o. female Recently discharged from [facility]; she is doing well Discharge Summary Final [...] shortness of breath and was admitted to [place] [facility] and diagnosed NSTEMI and transferred to [facility] for further care. Her BNP is severely [...] tolerated 4) outpatient follow-up with [place] [facility] Procedures Performed: coronary angiogram, right heart catheterization, conscious sedation 21 min, ultrasound guidance for vascular access Procedure Description: The patient was brought to the cardiac catheterization lab in a fasting state. Informed written consent was obtained. she was prepped and draped in usual sterile fashion over the right wrist and right neck and (more content not included)... [facility] 08-11-2023 Note [facility] INPAT IENT [...] or edema. Patient states she lives in [place] and does not have a car. This limits follow up for her pacemaker however she does have appt scheduled for 08/20 at our [place] [facility]. Plan for a device check to [...] signed: ROSAMARIA ELENA (more content not included)... [facility] 08-11-2023 Note Hospital Medicine Discharge [...] Your Medications These medications were sent to [facility]/pharmacy #[id number] [place] [address] oxyCODONE-acetaminophen 5-325 mg tablet Vivian is allergic [...] rate 20, h (more content not included)... [facility] 08-10-2023 Note 08/10/23 9875 Admission Assessment Questions Verify insurance with patient [...] Discharge? Yes Does the patient have a employment case manager assigned to them through their [...] to send link and activate MyChart? No [facility] 08-10-2023 Note Hospital Medicine History and Physical 08/10/2023 11:43 AM THE HOSPITALIST TEAM PREFERS TO USE [email or web address] CHAT FOR COMMUNICATION 7AM-7PM. IF I DO NOT RESPOND WITHIN 15 MINUTES, PLEASE PAGE ME/CALL THROUGH THE EDGE KITTER. FROM 7PM-7AM, PLEASE PAGE [phone](COVR) Chief Complaint pacemaker lead failure, status post [...] Bradycardia 07/06/2023 NSTEMI (non-ST elevated myocardial infarction) ([facility]) 06/29/2023 Other forms of angina pectoris 06/29/2023 Hypomagnesemia 06/29/2023 Acute midline low back pain without sciatica 06/29/2023 Coronary arteriosclerosis 11/24/2021 Hyperlipidemia 11/24/2021 Type 2 diabetes mellitus ([facility]) 11/24/2021 Acute non-ST segment elevation myocardial infarction ([facility]) 11/24/2021 Cigarette smoker 11/24/2021 Pacemaker lead [...] this hospital stay by a member of [facility]. Past Medical History No past [...] Alcohol use: Not (more content not included)... [facility] 08-10-2023 Note Indications for vent [...] of the upper extremity Loree Chance M.D. [facility] Makeup Sales Consultanttechnical agronomist and Pediatrics Director: Cardiac Electrophysiology Program [facility] 08-10-2023 Note Patient: Vivian Dela Cruz or Procedure Information Date/Time: 08/10/23829 Procedure: Pacemaker lead revision - Biotronik Location: [facility] PRINCIPAL SECURITY ARCHITECT 1 / [facility] (Cath) Providers: Loree Chance [...] discussed with patient who. Additional Equipment Requests [facility] 07-11-2023 Note Hospital Medicine Discharge [...] NP CARD Deirdre Moreno 08/06/2023 1:30 PM [facility] CV CLINIC DEVICE CHECK [facility] CARD [place] [facility] Your medication [...] 70.4 kg (1 (more content not included)... [facility] 07-11-2023 Note Occupational Therapy Occupational [...] Level of Function Prior Function Level of [place]: Independent with ADLs and functional transfers, Independent [...] Eating meals?: None (Independent) Total Score OT [facility]: 24 Assessment/Plan OT Assessment OT Education/Comments: (PPM handout issued and discussed with good return demo) Plan OT Plan: No skilled OT OT Discharge Recommendations: Home OT - Discharge Recommendations Placed: Yes OT Goals Multi-Disciplinary Problems (from Occupational Therapy) Active Problems Not on file [facility] 07-11-2023 Note [facility] C[facility] PROGR [...] Normal heart size. Electronically signed: Denver Hernandez. [facility] 06/29/23: Final Impression: 1) Coronary angiogram [...] left ventricular sys (more content not included)... [facility] 07-11-2023 Note Hospital Medicine Daily Progress Note - 07/11/2023 8:24 AM; Room: [address] [place] [address] Admission: 07/06/2023 12:25 AM; Length of stay: 5 days THE HOSPITALIST TEAM PREFERS TO USE [email or web address] CHAT FOR COMMUNICATION 7AM-7PM. IF I DO NOT RESPOND WITHIN 15 MINUTES, PLEASE PAGE ME/CALL THROUGH THE EDGE KITTER. FROM 7PM-7AM, PLEASE PAGE [phone](COVR) Code Status: Full Code Barriers to Discharge: [...] LDL 95 07/06/2023 No results found for: [id number] , IRON , TIBC , C3 , [...] clear. Normal heart (more content not included)... [facility] 07-10-2023 Note Indications for dual [...] of the upper extremity Loree Chance M.D. [facility] Makeup Sales Consultanttechnical agronomist and Pediatrics Director: Cardiac Electrophysiology Program [facility] 07-10-2023 Note Patient: Vivian Dela Cruz or Procedure Information Date/Time: 07/10/231499 Procedure: Implant PPM Location: [facility] PRINCIPAL SECURITY ARCHITECT 1 / [facility] (Cath) Providers: Loree Chance [...] discussed with patient who. Additional Equipment Requests [facility] 07-10-2023 Note UTP CARDIOLOGY PROGR [...] lock IV AND sodium chloride CV Testing: [facility] 06/29/23: Final Impression: 1) Coronary angiogram [...] 86 QT Interval 466 QTC CALCULATION(BAZETT) 476 R-Orogrande 34 T Wave Orogrande [address] & Marked T wave abnormality, consider anterolateral ischemia Prolonged QT Abnormal ECG When compared with ECG of 06-JUL-2023 14:34, T wave inversion less evident in Lateral Confirmed by Yoan GRIJALVA, KIERA Rainey (58) on 07/08/2023 12:23:36 PM Assessment/Plan Junctional bradycardia Abnormal EKG- ST/T wave changes concerning for ischemia- [facility] showed stable CAD Ventric (more content not included)... [facility] 07-10-2023 Note Hospital Medicine Daily Progress Note - 07/10/2023 8:08 AM; Room: [address] [place] [address] Admission: 07/06/2023 12:25 AM; Length of stay: 4 days THE HOSPITALIST TEAM PREFERS TO USE [email or web address] CHAT FOR COMMUNICATION 7AM-7PM. IF I DO NOT RESPOND WITHIN 15 MINUTES, PLEASE PAGE ME/CALL THROUGH THE EDGE KITTER. FROM 7PM-7AM, PLEASE PAGE [phone](COVR) Code Status: Full Code Barriers to Discharge: [...] LDL 95 07/06/2023 No results found for: [id number] , IRON , TIBC , C3 , [...] need to arrange for her transportation needs; automatic typewriter inspector provided printed information to Pt for local [employer] - Financial Reconciliation companies for Pt (more content not included)... [facility] 07-09-2023 Note Patient admitted to the hospital for: Bradycardia. Chart echo from 06/29/2023 reports: EF 60%. Echo report does Not qualify for Cardiac Rehab services per CMS eligibility criteria. A Cardiac Rehab referral must also meet CMS criteria. Marline Suarez, RN, BSN Cardiopulmonary Rehab Coordinator [facility] 07-09-2023 Note Cardiology Inpatient Progress [...] 86 QT Interval 466 QTC CALCULATION(BAZETT) 476 R-Orogrande 34 T Wave Orogrande [address] & Marked [...] Rainey (58) on 07/08/2023 12:23:36 PM 06/29/23 [facility] Final Impression: 1) Coronary angiogram shows [...] of bradycardia. Patient has been transferred to [facility] for consideration of pacemaker placement. As per patient, her heart rate was 18 at the outside hospital, however I could not confirm from any documentation. During the current hospitalization, so far patient's heart rate has been ranging 40-50. EKG performed in the ED showed diffuse T wave inversions with junctional rhythm. Telemetry shows sinus bradycardia a (more content not included)... [facility] 07-09-2023 Note Hospital Medicine Daily Progress Note - 07/09/2023 11:10 AM; Room: [address] [place] [address] Admission: 07/06/2023 12:25 AM; Length of stay: 3 days THE HOSPITALIST TEAM PREFERS TO USE [email or web address] CHAT FOR COMMUNICATION 7AM-7PM. IF I DO NOT RESPOND WITHIN 15 MINUTES, PLEASE PAGE ME/CALL THROUGH THE EDGE KITTER. FROM 7PM-7AM, PLEASE PAGE [phone](COVR) Code Status: Full Code Barriers to Discharge: [...] LDL 95 07/06/2023 No results found for: [id number] , IRON , TIBC , C3 , [...] Planning TBD Signed Barrett Haider MD MS4 [facility] 07/09/2023 11: (more content not included)... [facility] 07-08-2023 Note ---- Attestation signed [...] 0802 84/55 36.4 ???C (97.5 ???F) [facility] 67 21 98 % -- 07/08/23 [...] 86 QT Interval 466 QTC CALCULATION(BAZETT) 476 R-Orogrande 34 T Wave Orogrande [address] & Marked T wave abnormality, consider anterolateral ischemia Prolonged QT Abnormal ECG When compared with ECG of 06-JUL-2023 14:34, T wave inversion less evident in Lateral Lab Results Component Value Date CKTOTAL 36.0 07/06/2023 TROPONINI 0.12 () 07/06/2023 Complete Echo (TTE) w/wo Imaging Agent, Strain, 3D, Bubble Study Result Date: 06/29/2023 1 [facility] Heart Station [address] [place] [address] [phone] (fax) Echocardiogram-[facility] Name: VIVIAN VANN Study Date: 06/29/2023 12:30 PM B/P: 135 mmHg/89 mmHg HR: Date of : 1960 Location: [facility] Height: 67 in. Age: 63 year(s) Patient [...] Valve: The mitr (more content not included)... [facility] 07-08-2023 Note Hospital Medicine Daily Progress Note - 07/08/2023 8:42 AM; Room: [address] [place] [address] Admission: 07/06/2023 12:25 AM; Length of stay: 2 days THE HOSPITALIST TEAM PREFERS TO USE [employer] FOR COMMUNICATION 7AM-7PM. IF I DO NOT RESPOND WITHIN 15 MINUTES, PLEASE PAGE ME/CALL THROUGH THE EDGE KITTER. FROM 7PM-7AM, PLEASE PAGE [phone](COVR) Code Status: Full Code Barriers to Discharge: [...] LDL 95 07/06/2023 No results found for: [id number] , IRON , TIBC , C3 , [...] Planning TBD Signed Barrett Haider MD MS4 [facility] 07/08/2023 8:42 AM [facility] 07-07-2023 Note ---- Attestation signed [...] 84 QT Interval 434 QTC CALCULATION(BAZETT) 451 R-Orogrande 23 T Wave Orogrande [address] & Marked [...] 1 1 [facility] Heart Station [address] [place], [place] [phone] (fax) Echocardiogram-[facility] Name: VIVIAN VANN Study Date: 06/29/2023 12:30 PM B/P: 135 mmHg/89 mmHg HR: Date of : 1960 Location: [facility] Height: 67 in. Age: 63 year(s) Patient [...] abnormality. Right Ventricle: (more content not included)... [facility] 02-24-2024 Note Hospital Medicine Daily Progress Note - 07/07/2023 10:19 AM; Room: [address] [place] [address] Admission: 07/06/2023 12:25 AM; Length of stay: 1 days THE HOSPITALIST TEAM PREFERS TO USE [email or web address] CHAT FOR COMMUNICATION 7AM-7PM. IF I DO NOT RESPOND WITHIN 15 MINUTES, PLEASE PAGE ME/CALL THROUGH THE EDGE KITTER. FROM 7PM-7AM, PLEASE PAGE [phone](COVR) Code Status: Full Code Barriers to Discharge: [...] 4.6 3.7 CHLORIDE (more content not included)... [facility] 07-06-2023 Note communication receiv ed that Patient stating does not have transportation to return home at discharge At 07/02/2023 discharge, [facility] provided a one-time courtesy taxi cab transportation for Patient to return to her home (Patient's residence is 57 [place] [address]-way from [facility] and cost for taxi cab was $146); [facility] is not able to provide another taxi cab. The following information was printed and provided to the Patient to make her own transportation arrangements for once she is medically cleared for discharge: [facility] hospital address is [address], [place] [address] [employer] Medicare to ask if non-emergency medical transportation is a covered benefit of the specific plan (https://www.Tradeo/contact-us/[place] o/) Taxis in [place] (https://co.jonnie.tx.us/3086/Taxi) [employer] [phone] ([phone]) [employer] [phone] [facility] 07-06-2023 Note 07/06/23 1625 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 Primary Caregiver Self Activities of [...] need to arrange for her transportation needs; automatic typewriter inspector provided printed information to Pt for local [employer] - Financial Reconciliation companies for Pt to consider; [facility] unable to pay for another one-time courtesy [employer] - Financial Reconciliation for 57miles one-way trip) [facility] 07-06-2023 Note 1526 automatic typewriter inspector attempted to meet with Pt to discuss discharge planning (including Patient will need to arrange her transportation once she is medically cleared to discharge to home); Patient not in bed; unable to complete [id number] 1542 automatic typewriter inspector attempted to meet with Pt to discuss discharge planning (including Patient will need to arrange her transportation once she is medically cleared to discharge to home); Patient caring for toileting hygiene; unable to complete [id number] [facility] 07-06-2023 Note 07/06/23 1219 Admission [...] Discharge? Yes Does the patient have a employment case manager assigned to them through their [...] to send link and activate MyChart? Yes [facility] 07-06-2023 Note ---- Attestation signed [...] Progress Note - 07/06/2023 11:37 AM; Room: [address] [place] [address] Admission: 07/05/2023 11:50 PM; Length of stay: 1 days THE HOSPITALIST TEAM PREFERS TO USE [email or web address] CHAT FOR COMMUNICATION 7AM-7PM. IF I DO NOT RESPOND WITHIN 15 MINUTES, PLEASE PAGE ME/CALL THROUGH THE EDGE KITTER. FROM 7PM-7AM, PLEASE PAGE [phone](COVR) Code Status: Full Code Barriers to Discharge: [...] -Continue home medi (more content not included)... [facility] 07-06-2023 Note . Hospital Medicine History and Physical 07/06/2023 1:19 AM THE HOSPITALIST TEAM PREFERS TO USE [email or web address] CHAT FOR COMMUNICATION 7AM-7PM. IF I DO NOT RESPOND WITHIN 15 MINUTES, PLEASE PAGE ME/CALL THROUGH THE EDGE KITTER. FROM 7PM-7AM, PLEASE PAGE [phone](COVR) Chief Complaint No chief complaint on file. History of Present Illness Vivian Vann is an 63 y.o. female who came from home with CP. This is a 63 years old female lady with a medical history of hypertension, tobacco smoking, A-fib, CHF. Came into the [facility] as a direct admit transfer from outside [...] Bradycardia 07/06/2023 NSTEMI (non-ST elevated myocardial infarction) ([facility]) 06/29/2023 Other forms of angina pectoris 06/29/2023 Hypomagnesemia 06/29/2023 Acute midline low back pain without sciatica 06/29/2023 Coronary arteriosclerosis 11/24/2021 Hyperlipidemia 11/24/2021 Type 2 diabetes mellitus ([facility]) 11/24/2021 Acute non-ST segment elevation myocardial infarction ([facility]) 11/24/2021 Cigarette smoker 11/24/2021 Assessment and [...] this hospital stay by a member of [facility]. Past Medical History No past [...] (CARDIA) Difficulty of (more content not included)... [facility] 07-05-2023 Evaluation + Plan note [...] Reflex 07/05/23 * Drug Screen Urine 07/05/23 [facility]02-19-2024 NotePatient admitted to the hospital for: NSTEMI. Review of the last noted chart Echo from 06/29/2023 reports: EF 60%. Reported echo result does not qualify for Cardiac Rehab services per CMS eligibility criteria for CHF. 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 No Patient's goal for discharge home RucCC screened; Pt declining [facility], Consult resolved 1340 Communication received that Pt needing transportation to home since was transferred here from [facility], does not drive, lives alone, does not have friends or family who can transport ([phone]) PC to [employer]; from [address] [place] [address] [place] [address] will be $146 Structural Analyst provided verbal estimate to supervisor hand workers, verbal approval from supervisor hand workers 1408 taxi cab transportation arranged; bedside RN notified Confirmation #: [id number] Passenger: VIVIAN VANN Phone Number: [phone] Pickup Date/Time: 07/02/2023 3:00 PM Pickup Address: [facility], [address] [place] [address], [facility] Drop Off Address: [address] [place] [address]. Ride Notes: please pickup at [facility]02-19-2024 Note07/02/23 1017 Admission Assessment Questions Verify [...] Discharge? Yes Does the patient have a employment case manager assigned to them through their [...] able to send link and activate MyChart? [facility]02-19-2024 Note Attestation signed by Merritt [...] QT Interval 476 QTC CALCULATION(BAZETT) 479 P Orogrande 68 R-Orogrande 25 T Wave Orogrande 128 Impression Normal sinus rhythm Right atrial [...] 1 1 [facility] Heart Station [address] [place] [address] [phone] (fax) Echocardiogram-[facility] Name: VIVIAN VANN Study Date: 06/29/2023 12:30 PM B/P: 135 mmHg/89 mmHg HR: Date of : 1960 Location: [facility] Height: 67 in. Age: 63 year(s) Patient [...] ventricular systolic function. Dop (more content not included)...[facility]02-18-2024 NoteHospital Medicine Daily Progress Note - 07/01/2023 12:00 PM; Room: [address] [place] [address] Admission: 06/29/2023 11:04 AM; Length of stay: 2 days THE HOSPITALIST TEAM PREFERS TO USE [email or web address] CHAT FOR COMMUNICATION 7AM-7PM. IF I DO NOT RESPOND WITHIN 15 MINUTES, PLEASE PAGE ME/CALL THROUGH THE EDGE KITTER. FROM 7PM-7AM, PLEASE PAGE [phone](COVR) Code Status: Full Code Barriers to Discharge: [...] LDL 114 11/02/2021 No results found for: [id number] , IRON , TIBC , C3 , C4 , WENDI , CANCA , ASO , PSA , CEA , CA125 , CA199 , AFP , CA153 Imaging ECG 12 lead Normal sinus rhythm Right atrial (more content not included)...[facility] 07-01-2023 Note Attestation signed by [...] QT Interval 476 QTC CALCULATION(BAZETT) 479 P Orogrande 68 R-Orogrande 25 T Wave Orogrande 128 Impression Normal sinus rhythm Right atrial [...] 1 1 [facility] Heart Station [address] [place], [place] [phone] (fax) Echocardiogram-[facility] Name: VIVIAN VANN Study Date: 06/29/2023 12:30 PM B/P: 135 mmHg/89 mmHg HR: Date of : 1960 Location: [facility] Height: 67 in. Age: 63 year(s) Patient [...] Right Ventricle: The r (more content not included)...[facility]02-17-2024 Note Attestation signed by Merritt [...] QT Interval 476 QTC CALCULATION(BAZETT) 479 P Oro[address]ande 68 R-Orogrande 25 T Wave Orogrande 128 Impression Normal sinus rhythm Right atrial [...] 1 1 [facility] Heart [facility] [address] [place] [address] [phone] (fax) Echocardiogram-[facility] Name: VIVIAN VANN Study Date: 06/29/2023 12:30 PM B/P: 135 mmHg/89 mmHg HR: Date of : 1960 Location: [facility] Height: 67 in. Age: 63 year(s) Patient [...] Mild Mild N (more content not included)... [facility]02-17-2024 NoteHospital Medicine Daily Progress Note - 06/30/2023 11:32 AM; Room: [address] [place] [address] Admission: 06/29/2023 11:04 AM; Length of stay: 1 days THE HOSPITALIST TEAM PREFERS TO USE [email or web address] CHAT FOR COMMUNICATION 7AM-7PM. IF I DO NOT RESPOND WITHIN 15 MINUTES, PLEASE PAGE ME/CALL THROUGH THE EDGE KITTER. FROM 7PM-7AM, PLEASE PAGE [phone](COVR) Code Status: Full Code Barriers to Discharge: [...] Principal Problem: NSTEMI (non-ST elevated myocardial infarction) ([facility]) Active Problems: Hyperlipidemia Type 2 diabetes mellitus [...] LDL 114 11/02/2021 No results found for: [id number] , IRON , TIBC , C3 , C4 , WENDI , CANCA , ASO , PSA , CEA , CA125 , CA199 , AFP , CA153 Imaging ECG 12 lead Normal sinus rhythm Right atrial enlargement ST & T wave abnormality, consider ante (more content not included)...[facility]02-16-2024 NotePatient: Vivian Vann Procedure Information Date/Time: 06/29/23 1655 Procedure: Coronary angiography Location: [facility] PRINCIPAL SECURITY ARCHITECT 3 / [facility] (Cath) Providers: Ortiz Aquino [...] who. Plan discussed with attending. [facility] Note Hospital Medicine History and Physical 06/29/2023 12:51 PM THE HOSPITALIST TEAM PREFERS TO USE [email or web address] CHAT FOR COMMUNICATION 7AM-7PM. IF I DO NOT RESPOND WITHIN 15 MINUTES, PLEASE PAGE ME/CALL THROUGH THE EDGE KITTER. FROM 7PM-7AM, PLEASE PAGE [phone](COVR) Chief Complaint Direct admission from [facility] for NSTEMI requiring cardiac cath History of Present Illness Vivian Vann is an 63 y.o. female who came from [facility] as direct asmission for NSTEMI. Patient presented 06/28/23 to [facility] for c/o chest pain and lower back pain. Patient troponin level found to be 557 and EKG showed new ischemia and inverted T-waves, NSTEMI. She was given nitroglycerin and started on heparin drip. Patient is 1 year s/p stent placement at [facility] on plavix and aspirin. Dr. Chapa with cardiology agreed to patient transfer here to [facility] with hospital medicine admitting and cardiology consult [...] Low back pending. Laboratory workup here at [facility] shows CBC unremarkable w/ exception of NCHC [...] nursing note reviewed. Exam conducted with a fine craft artist present. Constitutional: General: She is not in [...] Date Noted NSTEMI (non-ST elevated myocardial infarction) ([facility]) 06/29/2023 Assessment and Plan Chest pain Low Back Pain NSTEMI -Troponin 557 at [facility], troponin now 0.07 - aPTT [...] Heparin drip with titratio (more content not included)...[facility]04-05-2023 NoteMicrobiology PROCEDURE: Blood Culture Charcoal [...] This test was performed at: [facility], [address] [place] [address], [address] [place] [address], [facility] SystemComment on above:Performed By: #### [id number] ####[address] [id number] NoteMicrobiology PROCEDURE: Blood Culture Charcoal [R1] SOURCE: Blood BODY SITE: Arm L COLLECTED DATE/TIME: 08/09/2022 14:09 EDT RECEIVED DATE/TIME: 08/09/2022 14:17 EDT START DATE/TIME: 08/09/2022 14:17 EDT FREE TEXT SOURCE: lt ac Nic PA-C, Clinton C Nic PA-C, Clinton C FINAL REPORTS Final Report [] Verified Date/Time: 08/16/2022 15:58 EDT No growth at 7 days. Performing Locations R1: This test was performed at: [facility], [address] [place] [address], [id number] [place] [address], [facility] SystemComment on above:Performed By: #### [id number] ####[place] [id number] Hospital Discharge instructions Patient Education 08/09/2022 16:50:59 [...] Follow these instructions at home: Medicines Take bbat-dyu-cpajdbe and prescription medicines (inhaled or pills) only [...] 02/07/2006 Document Revised: 04/12/2018 Document Reviewed: 06/04/2017 Better[employer] Patient Education 2020 Digital Caddies. Follow Up Care 08/09/2022 13:09:28 With:Екатерина Jakob Address: [address] [place], [place] [address] Business (1) When:08/12/2022 16:50:37 Comments:Call the office [...] new or worsening symptoms. [facility]03-29-2023 Evaluation + Plan noteExtracted from: Title:ED Note [...] day(s), # 14 tab(s), Refills(s) 0, Pharmacy: [facility], 170.2, cm, 08/09/22 13:13:00 EDT, Height/Length [...] day(s), # 15 tab(s), Refills(s) 0, Pharmacy: [facility], 170.2, cm, 08/09/22 13:13:00 EDT, Height/Length [...] Blood Culture Charcoal 08/09/22 [facility]06-23-2022 NoteMR#: [id number] I [facility] Pt. Name: Vivian Vann Admitted: 11/01/2021 Discharged: 11/03/2021 Date of : 1960 Physician: Tamie Fajardo MD DISCHARGE SUMMARY PRINCIPAL DIAGNOSIS: Hdi-AN-hkaqqpzfl myocardial infarction. SECONDARY DIAGNOSES: 1. Questionable small subsegmental PE in the right lower lobe, favored to be chronic per CT angio done outside facility. 2. Peptic ulcer disease. 3. Depression. 4. Chronic obstructive pulmonary disease. 5. THC use. 6. Nicotine use. HOSPITAL COURSE: Again, the patient was admitted to the hospital on 11/01/2021, with chest pain and she was found to have a lfj-CL-cscjdburc [place]. The patient underwent cardiac catheterization and had [...] Fajardo MD Date Trans: 11/03/2021 01:10 P/laura [id number] cc: Gasper Avendano M.D. [facility] [address] Е[address]ат[address]ина Robert M.D. [facility] [address] [facility] [place] [facility] [id number] [facility] Narrative No data available for this section [facility] No data available for this section [facility] No data available for this section [...] CREATED AUTHOR AUTHOR'S ORGANIZ ATION 07/13/2023 [facility] DATE CREATED AUTHOR AUTHOR'S ORGANIZ ATION 08/04/2023 [facility] DATE CREATED AUTHOR AUTHOR'S ORGANIZ ATION 09/11/2023 [facility] Patient Care team informatio n (unrecognized section and content) Personnel Name: Екатерина Robert MD Address: Address: [address] [place] [address] Personnel Name: Екатерина Robert MD Address: Address: [address] [place] [address] FOR RECORDS PERTAINING TO PATIENTS WHO ARE [...] BE BASED ON THE PRIMARY CLINICAL RECORDS. [facility] Consulted [facility]. provides no warranty or guarantee of the accuracy or completeness of information in this document.
--- NOTE | 2024-12-05 02:10 | XR_ITS ---
The [address] [address] Patient Name: EMERY JETT MRN: [id number] date: 1960 Sex: F Assigned Patient Location: MS Current Patient Location: MS Accession/Order Number: [id number] Exam Date: 12/05/2024 09:56 Report Date: 12/05/2024 09:58 At the request of: URMILA CARREON MD Procedure: XR chest 1V Single view chest: CLINICAL HISTORY: History of STEMI 2 years ago. Abdominal pain. COMPARISON: CT chest 12/04/2024 FINDINGS: Pacemaker wires are noted. Heart is normal in size. Chronic appearing interstitial changes. No consolidation pneumothorax pleural effusion or free air. XR/XR chest 1V IMPRESSION: CHRONIC APPEARING INTERSTITIAL CHANGES. NO CONSOLIDATION IS SEEN TO SUGGEST PNEUMONIA. Impression dictated by: Arvind Ortiz Jr., D.O. 12/05/2024 9:58 AM Dictation Location: [place] [address] Electronically authenticated by: [id number] Y Date: 12/05/2024 09:58
[2024-12-05] MEDS: 0.9 % SODIUM CHLORIDE 1,000 ML 125 ML IV ×2 (02:47→10:49)
[2024-12-05] MEDS: HEPARIN SODIUM (PORCINE) 5,000 UNIT/ML VIAL 5000 UNIT SUBQ (02:50)
[2024-12-05 05:16] LABS: Hematocrit 38.0 % (36.0-48.0); Hemoglobin 12.4 g/dL (12.0-16.0); Immature Granulocytes Abs Auto 0.03 10^3/uL (0.00-0.03); Immature Granulocytes Pct Auto 0.3 % (0.0-0.5); Lymphocytes Absolute Auto 1.7 10^3/uL (1.2-3.8); Mean Corpuscular HGB Conc 32.6 g/dL (29.9-35.2); Mean Corpuscular Hemoglobin 28.4 pg (26.7-34.0); Mean Corpuscular Volume 87.0 fL (81.0-99.0); Platelet Count 287 10^3/uL (150-450); Red Blood Count 4.37 10^6/uL (4.20-5.40); White Blood Count 10.7 10^3/uL (4.0-11.0)
[2024-12-05 05:42] LABS: Alanine Aminotransferase 20 U/L (14-59); Albumin Globulin Ratio 0.8; Albumin Level 2.7 g/dL (3.4-5.0); Alkaline Phosphatase 71 U/L (46-116); Anion Gap 12.2; Aspartate Amino Transferase 21 U/L (15-37); Blood Urea Nitrogen 23.0 mg/dL (7.0-18.0); Calcium 9.0 mg/dL (8.5-10.1); Carbon Dioxide 27.2 mmol/L (21.0-32.0); Chloride 100 mmol/L (98-107); Estimated GFR (African America 42 (>=60 mL/min/1.73m^2); Estimated GFR (Non-African Ame 35 (>=60 mL/min/1.73m^2); Globulin 3.6 g/dL; Glucose 148 mg/dL (74-106); Potassium 5.4 mmol/L (3.5-5.1); Sodium 134 mmol/L (136-145); Total Protein 6.3 g/dL (6.4-8.2)
[2024-12-05] MEDS: ACETAMINOPHEN 325 MG TABLET 650 MG PO (06:29)
--- NOTE | 2024-12-05 06:59 | PC.NURSE ---
[phone] 3 nurses attempted to obtain blood cultures. Physician and lab made aware to be drawn with am lab draws.
[2024-12-05] MEDS: ASPIRIN 81 MG TABLET.DR PO (08:23)
[2024-12-05] MEDS: BUSPIRONE HCL 10 MG TABLET PO (08:23)
[2024-12-05] MEDS: ALPRAZOLAM 1 MG TABLET 0.5 MG PO (08:23)
[2024-12-05] MEDS: CLOPIDOGREL BISULFATE 75 MG TABLET PO (08:23)
--- NOTE | 2024-12-05 09:40 | CM.NOTE ---
Rounds made with Dr. Burch, pt continues with c/o stomach pain 10 on scale 1-10. Dr. Burch inquiring about gastric emptying nuclear scan, called Radiology and test is usually done as outpatient and pt would need to be fasting. Updated Dr. Burch, no order at this time. Discussed with pt plan of care and findings on CT scan and lab work. Pt verbalizes understanding.
--- NOTE | 2024-12-05 10:04 | PM.IMHP1 ---
Internal Medicine - H&P: HPI History of Present Illness Chief complaint: WEAKNESS, COLLIN, ELEVATED TROP., ABDOMINAL PAIN Narrative: Please be aware of this patient for the first time today. She was accepted by nighttime hospitalist colleague. This is the first time I see her. This is 64-year-old female with past med history of GERD, HFpEF, anxiety, COPD, dyslipidemia, hypothyroidism, hypertension, dyslipidemia, anxiety, CAD with PCI/CONSUELO to LAD, bradycardia s/p pacemaker, IBS, here for abdominal pain of 1 day duration. History obtained from the patient as well as from the ER documentation. Patient states that her abdominal pain started yesterday all of a sudden, severe sharp and stabbing 10/10 lower abdominal pain with radiation to the lower back. By no fever no chills but complains of nausea and dry heaves but no vomiting. Did not eat any any unusual food. Denies any other aggravating or relieving factors no sick contacts. Patient denies any chest pain or shortness of breath or CASANOVA or dizziness or syncope. She lives alone. She said that morphine help with the pain while she was in the ED. pain is not related to the food intake. Workup in the ED included elevated troponin of 78 which later became 55 this morning. Her chemistry showed COLLIN of BUN of 26 and creatinine of 2.56. Her calcium was 10.9. CBC showed leukocytosis. CT abdomen pelvis showed moderate distention of fluid filled the stomach with no focal inflammatory changes. No acute chest findings. No bowel obstruction. There was no hepatic mass or intrahepatic [place]. [address], did not show any acute new ischemic changes. Today's labs are showing improving renal function. Review of Systems ROS Status of ROS 10 or more systems reviewed and unremarkable except as noted in history and below [facility] Medical History (Updated 12/05/24 @ 10:12 by Hipolito Burch MD) GERD (gastroesophageal reflux disease) ?K21.9 - Gastro-esophageal reflux disease without esophagitis (ICD-10) Chronic combined systolic (congestive) and diastolic (congestive) heart failure ?I50.42 - Chronic combined systolic (congestive) and diastolic (congestive) heart failure (ICD-10) Anxiety ?F41.9 - Anxiety disorder, unspecified (ICD-10) Acute hypoxemic respiratory failure ?J96.01 - Acute respiratory failure with hypoxia (ICD-10) Acute exacerbation of chronic obstructive pulmonary disease (COPD) ?J44.1 - Chronic obstructive pulmonary disease with (acute) exacerbation (ICD-10) COVID-19 ?U07.1 - COVID-19 (ICD-10) Hypothyroid ?E03.9 - Hypothyroidism, unspecified (ICD-10) HLD (hyperlipidemia) ?E78.5 - Hyperlipidemia, unspecified (ICD-10) Acute exacerbation of chronic obstructive pulmonary disease ?J44.1 - Chronic obstructive pulmonary disease with (acute) exacerbation (ICD-10) Hypertensive emergency ?I16.1 - Hypertensive emergency (ICD-10) Acute gastroenteritis ?K52.9 - Noninfective gastroenteritis and colitis, unspecified (ICD-10) Hypoxemia ?R09.02 - Hypoxemia (ICD-10) Chest pain ?R07.9 - Chest pain, unspecified (ICD-10) Coronary artery disease ?I25.10 - Atherosclerotic heart disease of [place] coronary artery without angina pectoris (ICD-10) Elevated troponin ?R79.89 - Other specified abnormal findings of blood chemistry (ICD-10) Pneumonia ?J18.9 - Pneumonia, unspecified organism (ICD-10) Anxiety ?F41.9 - Anxiety disorder, unspecified (ICD-10) Acute kidney injury ?N17.9 - Acute kidney failure, unspecified (ICD-10) Acute anxiety ?F41.9 - Anxiety disorder, unspecified (ICD-10) Pacemaker ?Z95.0 - Presence of cardiac pacemaker (ICD-10) Iron deficiency anemia ?D50.9 - Iron deficiency anemia, unspecified (ICD-10) COPD (chronic obstructive pulmonary disease) ?J44.9 - Chronic obstructive pulmonary disease, unspecified (ICD-10) Hypoxia ?R09.02 - Hypoxemia (ICD-10) Dyspnea ?R06.00 - Dyspnea, unspecified (ICD-10) Elevated brain natriuretic peptide (BNP) level ?R79.89 - Other specified abnormal findings of blood chemistry (ICD-10) Hypertension ?I10 - Essential (primary) hypertension (ICD-10) Elevated troponin ?R79.89 - Other specified abnormal findings of blood chemistry (ICD-10) Acute dyspnea ?R06.00 - Dyspnea, unspecified (ICD-10) IBS (irritable bowel syndrome) ?K58.9 - Irritable bowel syndrome without diarrhea (ICD-10) Anxiety ?F41.9 - Anxiety disorder, unspecified (ICD-10) Heart attack ?I21.9 - Acute myocardial infarction, unspecified (ICD-10) Sciatic leg pain ?M54.30 - Sciatica, unspecified side (ICD-10) Herniated disc, cervical ?M50.20 - Other cervical disc displacement, unspecified cervical region (ICD-10) Surgical History (Updated 12/05/24 @ 01:30 by Jenn Yang) Hx of tonsillectomy ?Z90.89 - Acquired absence of other organs (ICD-10) History of appendectomy ?Z90.49 - Acquired absence of other specified parts of digestive tract (ICD-10) History of heart artery stent ?Z95.5 - Presence of coronary angioplasty implant and graft (ICD-10) Family History (Updated 12/05/24 @ 01:31 by Jenn Yang) Mother Family history of CHF (congestive heart failure) Family history of hypertension Family history of diabetes mellitus Father Family history of CHF (congestive heart failure) Family history of diabetes mellitus Brother Family history of CHF (congestive heart failure) Family history of diabetes mellitus Other Family history of myocardial infarction Social History (Updated 12/05/24 @ 01:32 by Jenn Yang) Within the past year, how often did you have a drink containing alcohol: never Score interpretation: A score less than 3 is consistent with normal alcohol consumption. Smoking status: Light tobacco smoker Nicotine containing products detail: 1 pack/week Non-prescribed substance use: cannabis (any form) Non-prescribed substance use details: smokes marijuana, gummies Previous occupational history: disabled Highest level of school completed/degree received: high school graduate Are you now , , , , never or living with a partner: In a typical week, how many times do you talk on the telephone with family, friends, or neighbors: once per week How often do you get together with friends or relatives: never How often do you attend mandaeism or latter day services: 4 or more times per year Do you belong to any clubs or organizations such as mandaeism groups unions, fraternal or athletic groups, or school groups: no Total score: 1 Score interpretation: A score of less than or equal to 1 indicates the most socially isolated. Little interest or pleasure in doing things: not at all Feeling down, depressed, or hopeless: not at all Feel stressed/tense/nervous/anxious/difficulty sleeping: very much Life stressors: financial matters Life stressor details: 2020 lost family Do you think of yourself as: straight/heterosexual Gender Identity: female Meds Home Medications and Allergies Home Medications ?Medication ?Instructions ?Recorded ?Confirmed ?Type alprazolam 1 mg tablet 1 mg PO BID 06/10/23 12/04/24 History aspirin 81 mg tablet,delayed 81 mg PO DAILY 06/10/23 12/04/24 History release buspirone 10 mg tablet 10 mg PO BID 06/10/23 12/04/24 History clopidogrel 75 mg tablet 75 mg PO DAILY 06/10/23 12/04/24 History dapagliflozin propanediol 10 mg 10 mg PO DAILY 06/10/23 12/05/24 History tablet (Farxiga) albuterol sulfate 90 mcg/actuation 1 puff inhalation Q4H PRN 06/29/23 12/04/24 History aerosol inhaler shortness of breath or wheezing pantoprazole 40 mg tablet,delayed 40 mg PO DAILY 06/29/23 12/04/24 History release carvedilol 12.5 mg tablet (Coreg) 12.5 mg PO BID #60 tabs 08/23/23 12/04/24 Rx nitroglycerin 0.4 mg sublingual 0.4 mg sublingual Q5M PRN chest 08/23/23 12/04/24 Rx tablet pain #30 tabs cyclobenzaprine 10 mg tablet 10 mg PO BID PRN muscle spasm 05/04/24 12/04/24 History trazodone 100 mg tablet 100 mg PO .QHS 05/04/24 12/04/24 History gabapentin 600 mg tablet 600 mg PO Q12H 05/20/24 12/04/24 History Allergies Allergy/AdvReac Type Severity Reaction Status Date / Time No Known Drug Allergies Allergy Verified 08/20/23 21:47 Exam Narrative Exam Narrative: General appearance: disheveled; frail and fragile 64 y.o female not ill appearing Orientation/consciousness: Yes awake, oriented x3, following commands, cooperative HENMT Common normals: normocephalic Face and sinus: normal facial exam External ear: external ears normal Eye Common normals: PERRL, EOMI Neck & C-Spine Common normals: full ROM, no lymphadenopathy, no JVD, no thyromegaly Chest Common normals: palpation of chest normal Respiratory Common normals: normal respiratory effort and clear to auscultation bilaterally Cardio Common normals: regular rate, regular rhythm, S1 normal heart sound and S2 normal heart sound GI Inspection: no abdominal distension Auscultation: normoactive bowel sounds Palpation: tender in her lower abdomen, no signs of rebound tenderness or guarding. Bowel sounds were normoactive on auscultation Extremity Common normals: no pedal edema Right lower extremity: lower leg (There is contusion and excoriations noted left ankle.) Neuro Sensorium/orientation: awake and alert, no new focal motor or sensory deficits Constitutional Vital Signs, click to edit/add: Last Vital Signs Temp 97.8 F 12/05/24 07:26 Pulse 95 H 12/05/24 09:57 Resp 16 12/05/24 07:26 BP 98/64 12/05/24 07:26 Pulse Ox 93 L 12/05/24 07:26 O2 Del Method Room Air 12/05/24 07:26 Internal Medicine - H&P: Reslt Labs Labs: Short CBC 12/04/24 12/05/24 Range/Units 21:29 04:51 WBC 18.2 H 10.7 (4.0-11.0) 10^3/uL Hgb 16.0 12.4 (12.0-16.0) g/dL Hct 48.9 H 38.0 (36.0-48.0) % Plt Count 447 287 (150-450) 10^3/uL BMP 12/04/24 12/05/24 21:29 04:51 Sodium 133 L 134 L Potassium 4.8 5.4 H Chloride 94 L 100 Carbon Dioxide 24.5 27.2 BUN 26.0 H 23.0 H Creatinine 2.56 H 1.50 H Glucose 222 H 148 H Calcium 10.9 H 9.0 Liver Function 12/04/24 12/05/24 Range/Units 21:29 04:51 Total Bilirubin 0.3 0.3 (0.2-1.0) mg/dL AST 31 21 (15-37) U/L ALT 27 20 (14-59) U/L Alkaline Phosphatase 105 71 (46-116) U/L Albumin 4.0 2.7 L (3.4-5.0) g/dL Assessment and Plan Assessment and Plan (1) Elevated troponin: (2) Acute kidney injury: (3) Abdominal pain: (4) Dehydration: Plan Intractable abdominal pain likely due to constipation. Gastroparesis is less tight given the lack of history of diabetes - Patient admitted to medical floor telemetry - Patient treated 1 L of NS in the ED, she is receiving a total of another 2 L here on the floor, cautiously watching patient for fluid overload while on the floor - I will switch her Zofran to IV Reglan 5 mg every 8 hours as needed to help with both the nausea and vomiting as well as with possible gastroparesis, her QTc was 363 which is acceptable -Trending with another troponin and ordering lactic acid -I am ordering A1c also will see if you have gastric emptying study in house. - Continue with IV pantoprazole 40 mg every 24 hours - I will give the patient IV morphine 2 mg every 4 hours as needed for the pain as this is what seem to help her - I discussed with her the plan. Answered all her questions.
[2024-12-05 10:26] LABS: Lactate/Lactic Acid 3.3 mmol/L (0.4-2.0)
--- NOTE | 2024-12-05 10:28 | CT_ITS ---
The [address] [address] Patient Name: EMERY JETT MRN: [id number] date: 1960 Sex: F Assigned Patient Location: MS Current Patient Location: MS Accession/Order Number: [id number] Exam Date: 12/05/2024 12:03 Report Date: 12/05/2024 12:07 At the request of: CHEL ELENA MD Procedure: CT angio abdomen pelvis CTA abdomen and pelvis . CLINICAL DATA: ruling out Bowel ischemia. TECHNIQUE: Intravenous contrast-enhanced CT angiography of the abdomen and pelvis was then performed. Axial, sagittal, coronal and volume-rendered three-dimensional reconstructions were created and reviewed. This CT exam was performed using one or more of the following dose reduction techniques: Automated exposure control, adjustment of the mA and/or kV according to patient size, or use of iterative reconstruction technique. COMPARISON: CT abdomen and pelvis 12/04/2024. FINDINGS: Lung Bases: Bibasilar scarring Organs:Presumed hemangioma along the dome of the liver. Gallbladder spleen pancreas and adrenal glands all appear unremarkable. No enhancing renal mass or hydronephrosis. Abdominal aorta appears normal in caliber without aneurysm dissection or rupture. No critical stenosis or occlusion is seen involving the major branch vessels.[ GI: Stomach is distended without focal abnormality. Small bowel appears nondilated. No acute colonic abnormality is seen. Colonic diverticulosis. No pneumatosis or portal venous gas.[ Pelvis:[Urinary bladder is grossly unremarkable. Uterus is atrophic. No adnexal mass.] Peritoneum/Retroperitoneum:No free air or free fluid or lymphadenopathy.[ Abd wall/Bones:Abdominal wall demonstrates no acute findings. Osseous structures demonstrate degenerative change.[ CT/CT angio abdomen pelvis IMPRESSION: Distention of the stomach. Findings nonspecific and could relate to gastric outlet obstruction. Otherwise, no acute process is seen. Impression dictated by: Arvind Ortiz Jr., D.O. 12/05/2024 12:07 PM Dictation Location: [facility] Electronically authenticated by: [id number] Y Date: 12/05/2024 12:07
[2024-12-05] MEDS: MORPHINE SULFATE 2 MG/ML SYRINGE IV ×2 (10:49→15:20)
[2024-12-05] MEDS: METOCLOPRAMIDE HCL 10 MG/2 ML VIAL 5 MG IVP (10:50)
--- NOTE | 2024-12-05 13:09 | CM.NOTE ---
Dr. Burch spoke with pt regarding CTA findings and need for higher level of care and GI specialist. Pt choice at this time is [facility]. Case Management called and started transfer process to [facility]. Provided bed coordinator with Dr. Burch contact number. Updated RN and elementary secretary regarding plan of care and transfer to [facility].
[2024-12-05 13:19] LABS: Lactate/Lactic Acid 1.2 mmol/L (0.4-2.0)
--- NOTE | 2024-12-05 15:54 | P.DS_ITS ---
DS: Providers Provider Date of admission: 12/05/24 01:15 Primary care physician: Charlie Richardson MD Consults: 12/05/24 09:22 Consult to Cardiology Routine Reason for consultation: abdominal pain, elevated troponin 12/05/24 09:50 Occupational Therapy Eval and Treat Routine Reason for consultation: placement Physical Therapy Eval and Treat Routine Reason for consultation: placement? Discharging clinician: Hipolito Burch Anticipated date of discharge: 12/05/24 DS: Diagnosis Discharge Diagnosis (1) Elevated troponin: (2) Acute kidney injury: (3) Abdominal pain: (4) Dehydration: DS: Summary Hospital Course Hospital Course: Please be aware of this patient for the first time today. She was accepted by nighttime hospitalist colleague. This is the first time I see her. This is 64-year-old female with past med history of GERD, HFpEF, anxiety, COPD, dyslipidemia, hypothyroidism, hypertension, dyslipidemia, anxiety, CAD with PCI/CONSUELO to LAD, bradycardia s/p pacemaker, IBS, here for abdominal pain of 1 day duration. History obtained from the patient as well as from the ER documentation. Patient states that her abdominal pain started yesterday all of a sudden, severe sharp and stabbing 10/10 lower abdominal pain with radiation to the lower back. By no fever no chills but complains of nausea and dry heaves but no vomiting. Did not eat any any unusual food. Denies any other aggravating or relieving factors no sick contacts. Patient denies any chest pain or shortness of breath or CASANOVA or dizziness or syncope. She lives alone. She said that morphine help with the pain while she was in the ED. pain is not related to the food intake. Workup in the ED included elevated troponin of 78 which later became 55 this morning. Her chemistry showed COLLIN of BUN of 26 and creatinine of 2.56. Her calcium was 10.9. CBC showed leukocytosis. CT abdomen pelvis showed moderate distention of fluid filled the stomach with no focal inflammatory changes. No acute chest findings. No bowel obstruction. There was no hepatic mass [place] [id number], did not show any acute new ischemic changes. Today's labs are showing improving renal function. Intractable abdominal pain likely due to constipation. Gastroparesis is less tight given the lack of history of diabetes - Patient admitted to medical floor telemetry - Patient treated 1 L of NS in the ED, she is receiving a total of another 2 L here on the floor, cautiously watching patient for fluid overload while on the floor - I will switch her Zofran to IV Reglan 5 mg every 8 hours as needed to help with both the nausea and vomiting as well as with possible gastroparesis, her QTc was 363 which is acceptable -Trending with another troponin and ordering lactic acid -I am ordering A1c also will see if you have gastric emptying study in house. - Continue with IV pantoprazole 40 mg every 24 hours - I will give the patient IV morphine 2 mg every 4 hours as needed for the pain as this is what seem to help her - I discussed with her the plan. Answered all her questions. Given CT angio findings showing possible gastric outlet obstruction and the unavailability of GI service for EGD here in our [place], transfer to [facility] was started. Accepted by GI there Dr. Yoon, who will be on consult. Then spoke to [place] hospitalistBasilio, pt was accepted to go there. Pending bed availability Status at Discharge Overall status at discharge: patient is not back to baseline Time Spent with Patient Time attestation: Total time spent providing and/or coordinating discharge services: Exam Narrative Exam Narrative: General appearance: disheveled; frail and fragile 64 y.o female not ill appearing Orientation/consciousness: Yes awake, oriented x3, following commands, cooperative HENMT Common normals: normocephalic Face and sinus: normal facial exam External ear: external ears normal Eye Common normals: PERRL, EOMI Neck & C-Spine Common normals: full ROM, no lymphadenopathy, no JVD, no thyromegaly Chest Common normals: palpation of chest normal Respiratory Common normals: normal respiratory effort and clear to auscultation bilaterally Cardio Common normals: regular rate, regular rhythm, S1 normal heart sound and S2 normal heart sound GI Inspection: no abdominal distension Auscultation: normoactive bowel sounds Palpation: tender in her lower abdomen, no signs of rebound tenderness or guarding. Bowel sounds were normoactive on auscultation Extremity Common normals: no pedal edema Right lower extremity: lower leg (There is contusion and excoriations noted left ankle.) Neuro Sensorium/orientation: awake and alert, no new focal motor or sensory deficits Constitutional Vital Signs, click to edit/add: Last Vital Signs Temp 97.9 F 12/05/24 15:18 Pulse 92 H 12/05/24 15:18 Resp 16 12/05/24 15:18 BP 98/63 12/05/24 15:18 Pulse Ox 92 L 12/05/24 15:18 O2 Del Method Room Air 12/05/24 15:18 DS: Data Data Completed and Pending Labs on day of discharge: Labs from last 24 hours 12/05/24 12/05/24 12/05/24 12:50 10:15 09:42 WBC RBC Hgb Hct MCV MCH MCHC RDW Plt Count MPV Neut % (Auto) Lymph % (Auto) [place] % (Auto) Eos % (Auto) Baso % (Auto) Neut # (Auto) Lymph # (Auto) [place] # (Auto) Eos # (Auto) Baso # (Auto) Abs Immat Gran (auto) Seg Neuts % (Manual) Lymphocytes % (Manual) Monocytes % (Manual) Eosinophils % (Manual) Basophils % (Manual) Imm/Tot Granulo (auto) Neutrophils # (Manual) Lymphocytes # (Manual) Monocytes # (Manual) Eosinophils # (Manual) Basophils # (Manual) Sodium Potassium Chloride Carbon Dioxide Anion Gap BUN Creatinine Est GFR ( Amer) Est GFR (Non-Af Amer) BUN/Creatinine Ratio Glucose Estimat Average Glucose 123 Hemoglobin A1c 5.9 Lactate 1.2 3.3 H* Calcium Magnesium Total Bilirubin AST ALT Alkaline Phosphatase Troponin I High Sens 47.4 Total Protein Albumin Globulin Albumin/Globulin Ratio Lipase 12/05/24 12/04/24 12/04/24 04:51 23:00 21:29 WBC 10.7 18.2 H RBC 4.37 5.61 H Hgb 12.4 16.0 Hct 38.0 48.9 H MCV 87.0 87.2 MCH 28.4 28.5 MCHC 32.6 32.7 RDW 15.3 H 15.5 H Plt Count 287 447 MPV 10.2 10.1 Neut % (Auto) 75.6 H Lymph % (Auto) 16.0 L [place] % (Auto) 7.8 Eos % (Auto) 0.1 L Baso % (Auto) 0.2 Neut # (Auto) 8.1 H Lymph # (Auto) 1.7 [place] # (Auto) 0.8 Eos # (Auto) 0.0 Baso # (Auto) 0.0 Abs Immat Gran (auto) 0.03 Seg Neuts % (Manual) 76.0 H Lymphocytes % (Manual) 14.0 L Monocytes % (Manual) 10.0 Eosinophils % (Manual) 0.0 L Basophils % (Manual) 0.0 L Imm/Tot Granulo (auto) 0.3 Neutrophils # (Manual) 13.83 H Lymphocytes # (Manual) 2.54 Monocytes # (Manual) 1.82 H Eosinophils # (Manual) 0.00 Basophils # (Manual) 0.00 Sodium 134 L 133 L Potassium 5.4 H 4.8 Chloride 100 94 L Carbon Dioxide 27.2 24.5 Anion Gap 12.2 19.3 BUN 23.0 H 26.0 H Creatinine 1.50 H 2.56 H Est GFR ( Amer) 42 L 23 L Est GFR (Non-Af Amer) 35 L 19 L BUN/Creatinine Ratio 15.3 10.2 Glucose 148 H 222 H Estimat Average Glucose Hemoglobin A1c Lactate Calcium 9.0 10.9 H Magnesium 2.4 Total Bilirubin 0.3 0.3 AST 21 31 ALT 20 27 Alkaline Phosphatase 71 105 Troponin I High Sens 55.3 H* 69.6 H* 78.7 H* Total Protein 6.3 L 8.8 H Albumin 2.7 L 4.0 Globulin 3.6 4.8 Albumin/Globulin Ratio 0.8 0.8 Lipase 24.0 Discharge Plan Discharge Disposition: [facility] Hospital Condition: Good
--- NOTE | 2024-12-05 17:23 | PC.NURSE ---
report given to Alisia, all questions answered
== END 2024-12-05 17:19 | disposition short-term general hospital (02) | DRG 381 ==
LOC: ER 12-05 00:25 → MS 12-05 01:34
PROVIDERS: Internal Medicine; Physician Assistant; Admitting Provider Student in an Organized Health Care Education/Training Program; Emergency Provider Emergency Medicine; PCP Family Medicine; Visit Provider Student in an Organized Health Care Education/Training Program
DX: K31.1 Adult hypertrophic pyloric stenosis (principal); I50.32 Chronic diastolic (congestive) heart failure; N17.9 Acute kidney failure, unspecified; E86.0 Dehydration; R10.9 Unspecified abdominal pain; R79.89 Other specified abnormal findings of blood chemistry; K21.9 Gastro-esophageal reflux disease without esophagitis; I11.0 Hypertensive heart disease with heart failure; I25.2 Old myocardial infarction; F41.9 Anxiety disorder, unspecified; J44.9 Chronic obstructive pulmonary disease, unspecified; E78.5 Hyperlipidemia, unspecified; E03.9 Hypothyroidism, unspecified; Z95.5 Presence of coronary angioplasty implant and graft; Z95.0 Presence of cardiac pacemaker; D72.829 Elevated white blood cell count, unspecified; K58.9 Irritable bowel syndrome, unspecified; Z86.16 Personal history of COVID-19; Z87.01 Personal history of pneumonia (recurrent); Z90.49 Acquired absence of other specified parts of digestive tract; F17.200 Nicotine dependence, unspecified, uncomplicated; Z59.89 Other problems related to housing and economic circumstances; Z63.9 Problem related to primary support group, unspecified; Z79.82 Long term (current) use of aspirin; Z79.899 Other long term (current) drug therapy; K59.00 Constipation, unspecified
CPT/HCPCS: 36415; 71045; 71250; 74174; 74176; 80053; 80307; 81001; 83036; 83605; 83690; 83735; 84484; 85007; 85025; 85027; 87040; 93005; 96361; 96374; 96375; 96376; 97161; 97165; 99285; 99406; J0696; J1644; J2270; J2405; J2765; Q9967